=== PATIENT | female | born 1965 | race Caucasian/White ===

== ENCOUNTER 2022-01-03 14:30 | Outpatient (CLI) | payer BC, SELFPAY ==
[2022-01-03 21:51] LABS: Troponin I* < 0.01 ng/mL (0.01-0.04)
== END 2022-01-03 14:31 | disposition home or self-care (01) ==
PROVIDERS: PCP Family Medicine; Visit Provider Nurse Practitioner Family
DX: R07.89 Other chest pain (principal)
CPT/HCPCS: 36415; 84484

== ENCOUNTER 2022-01-10 11:35 | Emergency (ER) | payer BC, SELFPAY ==
[2022-01-10] VITALS (12 sets, daily range): BP systolic 127–150; BP diastolic 62–89; PULSE 56–76; RESP 11–22; TEMP 35.8–36.2; O2SAT 95–99; BMI 33.8
--- NOTE | 2022-01-10 12:31 | CRLHL7_ITS ---
For Patients: As a result of the Century Cures Act, medical imaging exams and procedure reports are released immediately into your electronic medical record. You may view this report before your referring provider. If you have questions, please contact your health care provider. INDICATION: Chest pain TECHNIQUE: Chest 2 views COMPARISON: 01/03/2022 FINDINGS: Cardiovascular and mediastinum: Cardiac silhouette is upper limits of normal. Mild tortuosity of the descending thoracic aorta. Vascular calcifications. Lungs and pleural spaces: Lungs are clear. No sign of infiltrate or mass. No sign of pleural effusion. No pneumothorax. Bones and soft tissues: Postop changes of lower cervical spine fusion. IMPRESSION: No acute findings. Dictated by Kleber Nichole MD @ 01/10/2022 1:19:29 PM (Electronically Signed)
[2022-01-10] MEDS: 0.9 % SODIUM CHLORIDE 1000 ml 1,000 ML IV (13:00)
[2022-01-10 13:02] LABS: Basophils Absolute Auto 0.04 K/uL (0.00-0.30); Basophils Percent Auto 0.8 % (0.0-3.0); Eosinophils Absolute Auto 0.12 K/uL (0.00-0.50); Eosinophils Percent Auto 2.4 % (0.0-7.0); Hematocrit 41.1 % (33.0-51.0); Hemoglobin* 13.3 gm/dL (12.0-16.0); Immature Granulocytes Abs Auto 0.01 K/uL (0.00-0.30); Lymphocytes Absolute Auto 2.09 K/uL (0.90-2.90); Lymphocytes Percent Auto 41.6 % (20-44); Mean Corpuscular HGB Conc 32 gm/dL (32-36); Mean Corpuscular Hemoglobin 30 pg (26-34); Mean Corpuscular Volume 94 fL (80-100); Monocytes Percent Auto 9.2 % (0.0-11.0); Neutrophils Percent Auto 45.8 % (42.0-72.0); Platelet Count* 216 K/uL (140-440); RDW Coefficient of Variation % 12.6 % (11.5-15.5); Red Blood Count 4.39 m/uL (4.00-5.20); White Blood Count* 5.02 K/uL (4.50-11.00)
--- NOTE | 2022-01-10 13:53 | ED.CHESTPAIN ---
HPI - Chest Pain General Date Seen: 01/10/22 Chief Complaint: Chest Pain Stated Complaint: Chest/neck/right arm pain Time Seen by Provider: 01/10/22 11:55 Source: patient Mode of arrival: ambulatory Limitations: no limitations History of Present Illness HPI narrative: Patient is a very nice 56-year-old female who struggles with the chest pain. She has had this on off for number of years. She gets is probably once every 3 months she describes. She when she is common resting, it does not occur when she is stressed her ex hurting herself,. She describes substernal chest pain or epigastric region which radiates up. Today it radiated up into her right side of her neck which is a little bit atypical it has radiated to her back into her left arm at times. Was seen by her primary care physician about 10 days ago, there troponin was negative, and her doctor told her, rather implore her that she needs to go to the emergency room when happens again. She has been told in the past that this is secondary to her fibromyalgia, but her physician said this this was unlikely. She does not have shortness of breath with this, she does feel little bit of nausea at times, but is unsure if this occurs with the episodes or she just feels nauseous. No history of fevers chills or sweats, leg swelling, hemoptysis, she has not been using any Tylenol or ibuprofen for this. Says it really does work anyway for her. She has had a stress test in the past approximately 2 years ago at the [facility] when she lived elsewhere. She does have a history of diabetes controlled with metformin, no history of hypertension, no history hyperlipidemia, father had a bypass done in his 40s. She is a lifetime nonsmoker nonuser of drugs. MD complaint: chest pain Onset (ago): month(s) Timing of current episode: episodic Prior episodes: Yes Onset: during rest Pain location: substernal and right chest Pain radiation: right arm Severity: moderate Quality: tightness and heaviness Relieving factors: nothing Exacerbating factors: nothing Associated symptoms: nausea Treatment prior to arrival: none Related Data On Oral Contraceptives: No Home Medications Medication Instructions Recorded Confirmed aspirin 81 mg tablet,delayed 81 mg PO QDAY 01/03/22 01/10/22 release cyanocobalamin (vitamin B-12) 1,000 mcg PO QDAY 01/03/22 01/10/22 1,000 mcg capsule duloxetine 30 mg capsule,delayed 30 mg PO QDAY 01/03/22 01/10/22 release duloxetine 60 mg capsule,delayed 60 mg PO QDAY 01/03/22 01/10/22 release gabapentin 300 mg capsule 300 mg PO TID 01/03/22 01/10/22 metformin 500 mg tablet 1,000 mg PO BID 01/03/22 01/10/22 simvastatin 20 mg tablet 20 mg PO QDAY 01/03/22 01/10/22 topiramate 50 mg tablet 50 mg PO BID 01/03/22 01/10/22 Previous Rx's Medication Instructions Recorded omeprazole 20 mg capsule,delayed 20 mg PO BID #180 caps 12/22/21 release Allergies Allergy/AdvReac Type Severity Reaction Status Date / Time azithromycin Allergy Verified 01/10/22 12:15 Review of Systems Status of ROS Reports: 10 or more systems reviewed and unremarkable except as noted in History and below PFSH FOR[facility]LY [facility], [facility] Medical History Depression Diabetes Fibromyalgia GERD (gastroesophageal reflux disease) Social History Smoking Status: Never smoker Do you use any of these nicotine containing products: None Second hand tobacco smoke exposure: No How often do you have a drink containing alcohol: monthly or less How many standard drinks containing alcohol do you have on a typical day: 1 or 2 How often do you have six or more drinks on one occasion: Never AUDIT-C Alcohol total score: 1 Non-prescribed substance use: denies use service: No Exam Const Vital Signs, click to edit/add: Vital Signs - 24 hr 01/10/22 12:08 01/10/22 12:20 01/10/22 12:40 Temperature 97.1 F L Pulse Rate [Right Pulse Oximeter] 67 73 70 Respiratory Rate 18 11 L 16 Blood Pressure [Right Upper Arm] 129/64 150/89 H 127/62 Pulse Oximetry 97 98 95 Oxygen Delivery Method Room Air Room Air Room Air 01/10/22 13:00 01/10/22 13:20 01/10/22 14:30 Temperature Pulse Rate [Right Pulse Oximeter] 58 L 62 60 Respiratory Rate 15 14 19 Blood Pressure [Right Upper Arm] 131/73 136/74 130/72 Pulse Oximetry 95 99 96 Oxygen Delivery Method Room Air Room Air Room Air 01/10/22 15:00 01/10/22 13:30 01/10/22 14:00 Temperature Pulse Rate [Right Pulse Oximeter] 76 56 L 56 L Respiratory Rate 12 19 Blood Pressure [Right Upper Arm] 134/67 134/74 131/71 Pulse Oximetry 99 96 96 Oxygen Delivery Method Room Air Room Air Room Air Documenting provider has reviewed patient's vital signs: yes Common normals: no apparent distress, average body habitus, oriented x3, no limitations, healthy appearing, alert and well nourished General appearance: cooperative, comfortable, well kempt and well developed Nutritional appearance: overweight Orientation/consciousness: Yes awake, Yes oriented to person, Yes oriented to place and Yes oriented to time HENND Common normals: normocephalic, head/scalp atraumatic, hearing grossly normal bilaterally, external ears normal, EAC's normal, TM's normal bilaterally, external nose normal, nasal mucous membranes and turbinates normal, moist oral mucous membranes, oropharynx normal, dentition normal and gingiva normal Head and scalp: normocephalic and atraumatic Nose: external nose normal and nasal mucous membranes and turbinates normal External ear: external ears normal External auditory canal: EAC's normal Tympanic membrane: TM's normal bilaterally Eye Common normals: PERRL, EOMs intact bilaterally, conjunctivae normal, no scleral icterus, no papilledema, normal visual valdez by confrontation and fundi normal bilaterally Conjunctiva: conjunctiva(e) normal Pupil: PERRL Direct Ophthalmoscopy: no papilledema and fundi normal bilaterally Neck & C-Spine Common normals: full ROM, no lymphadenopathy, supple, no meningeal signs, no JVD, thyroid normal and no carotid bruits Thyroid: thyroid normal Lymph Lymphatic: no lymphadenopathy noted and no lymphedema noted Resp Common normals: normal respiratory effort, no retractions, no use of accessory muscles, clear to auscultation bilaterally and percussion normal Auscultation: clear to auscultation bilaterally Percussion: percussion normal Cardio Common normals: no JVD, regular rate, regular rhythm, S1 normal heart sound, S2 normal heart sound, no gallops, no clicks, no murmurs, no rub and peripheral pulses 2+ throughout Rate: regular rate Rhythm: regular rhythm Heart sounds: S1 normal and S2 normal Peripheral pulses: pulses 2+ throughout GI Common normals: Normal to inspection, nondistended, normoactive bowel sounds present, soft to palpation, non-tender, no hepatosplenomegaly, no masses and no bruits Palpation: soft and no hepatosplenomegaly Common normals: no CVA tenderness Bladder/kidney exam: no CVA tenderness Back & Pelvis Common normals: no CVA tenderness, thoracic and lumbar spine normal to inspection, no thoracic nor lumbar tenderness, thoraco-lumbar ROM normal and straight leg raise negative bilaterally Extremity Common normals: normal to inspection, full ROM, normal capillary refill, no joint enlargement, no clubbing, cyanosis or edema, no calf tenderness and no pedal edema Neuro Common normals: oriented x3 Sensorium/orientation: awake, alert, oriented to person, oriented to place and oriented to time Meningeal signs: no meningeal signs Psych Appearance: well kempt Skin Common normals: no rashes or lesions noted, no wounds, skin turgor normal, no jaundice, no petechiae and no mottling General skin exam: no rashes or lesions noted and turgor normal Course Course Hospital Course: Point of care troponins negative, I think her heart score would be low given the fact that her EKG shows no acute findings, I do want to get a gallbladder ultrasound read to seek is this does sound like gallbladder issues. If that is the case then I will have her follow up with surgery and discuss treatment for this. Remainder of her labs otherwise look good. It also might be beneficial to get a stress echo done as an outpatient. These symptoms definitely do sound atypical, but given her family history I do not think he can be 2 safe. I do not think it is unreasonable wait and have her do this her primary care provider. Vital Signs Vital signs: Initial Vital Signs Temperature 97.1 F L 01/10/22 12:08 Temperature Source Temporal Artery Scan 01/10/22 12:08 Pulse Rate 67 01/10/22 12:08 Pulse Rhythm 01/10/22 12:08 Respiratory Rate 18 01/10/22 12:08 Blood Pressure 129/64 01/10/22 12:08 Blood Pressure Mean 85 01/10/22 12:08 Blood Pressure Position Sitting 01/10/22 12:08 Pulse Oximetry 97 01/10/22 12:08 Oxygen Delivery Method 01/10/22 12:08 Vital Signs Temperature 97.1 F L 01/10/22 12:08 Pulse Rate 67 01/10/22 12:08 Respiratory Rate 18 01/10/22 12:08 Blood Pressure 129/64 01/10/22 12:08 Pulse Oximetry 97 01/10/22 12:08 Oxygen Delivery Method 01/10/22 12:08 Temperature 97.1 F L 01/10/22 12:08 Pulse Rate 76 01/10/22 15:00 Respiratory Rate 12 01/10/22 15:00 Blood Pressure 134/67 01/10/22 15:00 Pulse Oximetry 99 01/10/22 15:00 Oxygen Delivery Method 01/10/22 15:00 MDM - Chest Pain MDM Narrative Medical decision making narrative: During the evaluation of this patient I considered multiple differential diagnosis is. The life-threatening differential diagnosis include coronary disease/MN, pulmonary embolism, pneumothorax, pneumonia, and aortic dissection. Other differential diagnosis included but were not limited to pericarditis, myocarditis, chest wall pain, GERD, esophageal rupture, rib fracture contusion, pleurisy, as well as other etiologies. Medical Records Data Attestation: I reviewed the patient's medical records. Lab Data Attestation: I reviewed the patient's lab results. Labs: Lab Results 01/10/22 01/10/22 01/10/22 Range/Units 12:45 12:45 12:45 WBC 5.02 (4.50-11.00) K/uL RBC 4.39 (4.00-5.20) m/uL Hgb 13.3 (12.0-16.0) gm/dL Hct 41.1 (33.0-51.0) % MCV 94 (80-100) fL MCH 30 (26-34) pg MCHC 32 (32-36) gm/dL RDW Coeff of Pravin 12.6 (11.5-15.5) % Plt Count 216 (140-440) K/uL Neut % (Auto) 45.8 (42.0-72.0) % Lymph % (Auto) 41.6 (20-44) % [place] % (Auto) 9.2 (0.0-11.0) % Eos % (Auto) 2.4 (0.0-7.0) % Baso % (Auto) 0.8 (0.0-3.0) % Neut # (Auto) 2.30 (1.7-7.0) K/uL Lymph # (Auto) 2.09 (0.90-2.90) K/uL [place] # (Auto) 0.50 (0.00-0.90) K/UL Eos # (Auto) 0.12 (0.00-0.50) K/uL Baso # (Auto) 0.04 (0.00-0.30) K/uL Abs Immat Gran (auto) 0.01 (0.00-0.30) K/uL INR 0.98 (0.91-1.10) APTT 27 (23-33) Seconds D-Dimer Quant (PE/DVT) 0.43 (0.00-0.50) ug/ml Sodium 142 (135-149) mmol/L Potassium 4.0 (3.6-5.1) mmol/L Chloride 110 (96-114) mmol/L Carbon Dioxide 24 (20-32) mmol/L BUN 13 (7-30) mg/dL Creatinine 0.7 (0.5-1.5) mg/dL Estimated Creat Clear 69.29 Estimated GFR 100 ml/min Glucose 115 (60-115) mg/dL Calcium 9.3 (8.4-10.6) mg/dL C-Reactive Protein < 0.5 L (0.5-1.0) mg/dL NT-Pro-B Natriuret Pep 52 (0-125) PG/mL Urine Color (Yellow) Urine Appearance (Clear) Urine pH (5.0-8.5) Ur Specific [place] (1.000-1.030) Urine Protein (Negative) Urine Glucose (UA) (Negative) Urine Ketones (Negative) Urine Blood (Negative) Urine Nitrite (Negative) Urine Bilirubin (Negative) Urine Urobilinogen (0.2-1.0) Ur Leukocyte Esterase (Negative) Urine RBC (0-2) Urine WBC (0-5) Ur Squamous Epith Cells (None-Few) Urine Bacteria (None) POC Troponin I (0.01-0.04) ng/ml 01/10/22 01/10/22 01/10/22 Range/Units 12:45 13:15 15:00 WBC (4.50-11.00) K/uL RBC (4.00-5.20) m/uL Hgb (12.0-16.0) gm/dL Hct (33.0-51.0) % MCV (80-100) fL MCH (26-34) pg MCHC (32-36) gm/dL RDW Coeff of Pravin (11.5-15.5) % Plt Count (140-440) K/uL Neut % (Auto) (42.0-72.0) % Lymph % (Auto) (20-44) % [place] % (Auto) (0.0-11.0) % Eos % (Auto) (0.0-7.0) % Baso % (Auto) (0.0-3.0) % Neut # (Auto) (1.7-7.0) K/uL Lymph # (Auto) (0.90-2.90) K/uL [place] # (Auto) (0.00-0.90) K/UL Eos # (Auto) (0.00-0.50) K/uL Baso # (Auto) (0.00-0.30) K/uL Abs Immat Gran (auto) (0.00-0.30) K/uL INR (0.91-1.10) APTT (23-33) Seconds D-Dimer Quant (PE/DVT) (0.00-0.50) ug/ml Sodium (135-149) mmol/L Potassium (3.6-5.1) mmol/L Chloride (96-114) mmol/L Carbon Dioxide (20-32) mmol/L BUN (7-30) mg/dL Creatinine (0.5-1.5) mg/dL Estimated Creat Clear Estimated GFR ml/min Glucose (60-115) mg/dL Calcium (8.4-10.6) mg/dL C-Reactive Protein (0.5-1.0) mg/dL NT-Pro-B Natriuret Pep (0-125) PG/mL Urine Color Yellow (Yellow) Urine Appearance Clear (Clear) Urine pH 7.0 (5.0-8.5) Ur Specific [place] 1.020 (1.000-1.030) Urine Protein Negative (Negative) Urine Glucose (UA) Negative (Negative) Urine Ketones Negative (Negative) Urine Blood Negative (Negative) Urine Nitrite Negative (Negative) Urine Bilirubin Negative (Negative) Urine Urobilinogen 0.2 (0.2-1.0) Ur Leukocyte Esterase Negative (Negative) Urine RBC 0-2 (0-2) Urine WBC 0-2 (0-5) Ur Squamous Epith Cells None (None-Few) Urine Bacteria None (None) POC Troponin I 0.00 L 0.00 L (0.01-0.04) ng/ml Imaging Data US - abdomen: My impression: Chest x-ray shows no acute findings by my review Radiologist's impression: Patient: PADMINI WONG Facility:?[facility] Patient ID:?[id number] Site Patient ID:?[id number] Site :?[id number] Study:?US Abdome-01/10/2022 3:40:45 PM Ordering Physician:Damion Holden Final Report: INDICATION: Abdomen and chest pain. TECHNIQUE: Ultrasound abdomen limited. Sonographic images of the right upper quadrant were obtained using ireland-scale and color Doppler images. COMPARISON: None FINDINGS: Liver: Increased echogenicity of the liver parenchyma. Bile ducts: Intrahepatic bile ducts are not dilated. The common bile duct measures upper limits of normal, 0.6-0.7 cm. Gallbladder: Layering echogenic sludge, no significant gallbladder wall thickening or pericholecystic fluid identified. Negative sonographic Leyva`s sign. Pancreas: Pancreas is poorly visualized secondary to acoustic shadowing from overlying/adjacent bowel gas. Right kidney: The right kidney measures 9.3 cm in length. Nonobstructing 0.4 cm calculus in the interpolar region. IMPRESSION: 1. Nonobstructing 0.4 cm right renal calculus. 2. Layering gallbladder sludge. No sonographic evidence of acute cholecystitis. 3. Increased echogenicity of the liver parenchyma, compatible with diffuse hepatic steatosis. 4. Common bile duct measures upper limits of normal, 0.6-0.7 cm. No definite choledocholithiasis is identified. Recommend correlation with serum alkaline phosphatase. Dictated by Sanjuana Domingo MD @ 01/10/2022 4:20:41 PM (Electronic Signature) Patient: PADMINI WONG Facility:?[facility] Patient ID:?[id number] Site Patient ID:?[id number] Site :?[id number] Study:?XRay Chest 2 VIEW-01/10/2022 1:13:06 PM Ordering Physician:Damion Holden Final Report: INDICATION: Chest pain TECHNIQUE: Chest 2 views COMPARISON: 01/03/2022 FINDINGS: Cardiovascular and mediastinum: Cardiac silhouette is upper limits of normal. Mild tortuosity of the descending thoracic aorta. Vascular calcifications. Lungs and pleural spaces: Lungs are clear. No sign of infiltrate or mass. No sign of pleural effusion. No pneumothorax. Bones and soft tissues: Postop changes of lower cervical spine fusion. IMPRESSION: No acute findings. Dictated by Kleber Nichole MD @ 01/10/2022 1:19:29 PM (Electronic Signature) ECG Data Attestation: I personally reviewed and interpreted this ECG as follows: ECG interpretation date: 01/10/22 Discharge Plan Discharge Clinical Impression: Atypical chest pain, GERD (gastroesophageal reflux disease) Patient Disposition: Home, Self-Care Condition: Stable Instructions: Biliary Colic (ED) Additional Instructions: Home rest follow-up with surgery to discuss the gallbladder and also upper endoscopy. I do believe there is something going on with her GI system also. I agree with your primary care physician the follow-up with cardiology and consider outpatient stress test is also appropriate. Can you on your current medications, low-fat diet, return as indicated Activity Level: No Restrictions Discharge Diet: Low Fat/Low Cholesterol Prescriptions: No Action duloxetine 30 mg capsule,delayed release(DR/EC) 30 mg PO QDAY duloxetine 60 mg capsule,delayed release(DR/EC) 60 mg PO QDAY cyanocobalamin (vitamin B-12) 1,000 mcg capsule 1,000 mcg PO QDAY metformin 500 mg tablet 1,000 mg PO BID topiramate 50 mg tablet 50 mg PO BID gabapentin 300 mg capsule 300 mg PO TID simvastatin 20 mg tablet 20 mg PO QDAY aspirin 81 mg tablet,delayed release (DR/EC) 81 mg PO QDAY omeprazole 20 mg capsule,delayed release(DR/EC) 20 mg PO BID Qty: 180 1RF Follow Up/Referrals: Luisa Anthony MD [Staff Physician] - Mary Anderson MD [Staff Physician] - Liliana Resendiz MD [Staff Physician] - Sudha Greene APRN, CORONER TRANSPORT TECHNICIAN [Primary Care Provider] - Stand Alone Forms: My[facility] Info Instructions
[2022-01-10 13:55] LABS: Chloride* 110 mmol/L (96-114); Sodium* 142 mmol/L (135-149)
[2022-01-10 13:57] LABS: Creatinine* 0.7 mg/dL (0.5-1.5); Est. Creatinine Clearance* 69.29; Estimated Glomerular Filt Rate 100 ml/min
[2022-01-10 13:58] LABS: Blood Urea Nitrogen* 13 mg/dL (7-30); Calcium* 9.3 mg/dL (8.4-10.6); Carbon Dioxide* 24 mmol/L (20-32); Glucose* 115 mg/dL (60-115)
[2022-01-10 13:59] LABS: Slide Review Reflex No
[2022-01-10 14:07] LABS: Appearance Urine Clear (Clear); Bilirubin Urine Negative (Negative); Blood Urine Negative (Negative); Color Urine Yellow (Yellow); Glucose Urine Negative (Negative); Ketones Urine Negative (Negative); Leukocyte Esterase Urine Negative (Negative); Nitrite Urine Negative (Negative); Protein Urine Negative (Negative); Urobilinogen Urine 0.2 (0.2-1.0)
[2022-01-10 14:08] LABS: C Reactive Protein* < 0.5 mg/dL (0.5-1.0); NT Pro B Type NatriureticPept* 52 PG/mL (0-125)
[2022-01-10 14:09] LABS: INR 0.98 (0.91-1.10); Partial Thromboplastin Time* 27 Seconds (23-33); Prothrombin Time 13.4 Seconds
[2022-01-10 14:11] LABS: D Dimer Quantitative* 0.43 ug/ml (0.00-0.50)
--- NOTE | 2022-01-10 14:44 | CRLHL7_ITS ---
For Patients: As a result of the Century Cures Act, medical imaging exams and procedure reports are released immediately into your electronic medical record. You may view this report before your referring provider. If you have questions, please contact your health care provider. INDICATION: Abdomen and chest pain. TECHNIQUE: Ultrasound abdomen limited. Sonographic images of the right upper quadrant were obtained using ireland-scale and color Doppler images. COMPARISON: None FINDINGS: Liver: Increased echogenicity of the liver parenchyma. Bile ducts: Intrahepatic bile ducts are not dilated. The common bile duct measures upper limits of normal, 0.6-0.7 cm. Gallbladder: Layering echogenic sludge, no significant gallbladder wall thickening or pericholecystic fluid identified. Negative sonographic Leyva`s sign. Pancreas: Pancreas is poorly visualized secondary to acoustic shadowing from overlying/adjacent bowel gas. Right kidney: The right kidney measures 9.3 cm in length. Nonobstructing 0.4 cm calculus in the interpolar region. IMPRESSION: 1. Nonobstructing 0.4 cm right renal calculus. 2. Layering gallbladder sludge. No sonographic evidence of acute cholecystitis. 3. Increased echogenicity of the liver parenchyma, compatible with diffuse hepatic steatosis. 4. Common bile duct measures upper limits of normal, 0.6-0.7 cm. No definite choledocholithiasis is identified. Recommend correlation with serum alkaline phosphatase. Dictated by Sanjuana Domingo MD @ 01/10/2022 4:20:41 PM (Electronically Signed)
[2022-01-10 14:45] LABS: RBC Urine 0-2 (0-2); WBC Urine 0-2 (0-5)
[2022-01-10] MEDS: KETOROLAC 30 MG/ML inj IVP (15:00)
--- OUTSIDE RECORDS SUMMARY | 2022-01-17 21:58 | XMS_ITS | Encounter Summary ---
:1965 Author Organization [facility] Address [address] [place] [address] Care Team Providers Name Role Phone Noreen Hills APRN, CNP Unavailable [phone] Noreen Hills APRN, CNP Primary Care Provider [phone] Marcelo Artis PA-C Unavailable [phone] Reason for Visit Reason Onset Date Comments Panel Management 07/25/2021 phys, pap, mammo, co dk, diab, PHQ9, HELGA, imm Encounter Details Date Type Department Care Team Description 07/25/2021 Telephone [facility] Noreen Hills Panel Miriam nash (phys, Clinic Pino Haley APRN CNP pap, mammo, colon, [address] [facility] diab, PHQ9, HELGA, imm) [facility] [address] [place] [address] [place] [address] [phone] Social History Tobacco Use Types Packs/Day Years Used Date Never Smoker Smokeless Tobacco: Never Used Alcohol Use Standard Drinks/Week Comments Yes 0 (1 standard drink = 0.6 oz pure alcoho l) Rare Alcohol Habits Answer Date Recorded How often do you have a drink containing alcohol? Monthly or less 08/08/2019 How many drinks containing alcohol do you have on a 1 or 2 08/08/2019 typical day when you are drinking? How often do you have six or more drinks on one Never 08/08/2019 occasion? Comment: Not asked Social Isolation Answer Date Recorded In a typical week, how many times do you talk on the Three t imes a week 08/08/2019 phone with family, friends, or neighbors? How often do you get together with friends or Patient refuse d 08/08/2019 relatives? How often do you attend yazidi or sikh Patient refused 08/08/2019 services? Do you belong to any clubs or organizations such as No 08/08/2019 yazidi groups, unions, fraternal or athletic groups, or school groups? How often do you attend meetings of the clubs or Patient ref used 08/08/2019 organizations you belong to? Are you now , , , , 08/08/2019 never or living with a partner? Physical Activity Answer Date Recorded On average, how many days per week do you engage in moderate to 0 days 08/08/2019 strenuous exercise (like walking fast, running, jogging, dancing, swimming, biking, or other activities that cause a light or heavy sweat)? On average, how many minutes do you engage in exercise at th is 0 min 08/08/2019 level? Stress Answer Date Recorded Do you feel stress - tense, restless, nervous, or anxious, R ather much 08/08/2019 or unable to sleep at night because your mind is troubled all the time - these days? Financial Resource Strain Answer Date Recorded How hard is it for you to pay for the very basics like Not h zurdo at all 08/08/2019 food, housing, medical care, and heating? Transportation Needs Answer Date Recorded In the past 12 months, has lack of transportation kept you f rom No 08/08/2019 medical appointments or from getting medications? In the past 12 months, has lack of transportation kept you f rom No 08/08/2019 meetings, work, or getting things needed for daily living? Education Answer Date Recorded What is the highest level of school you have completed or 12 th grade 08/08/2019 the highest degree you have received? Sex Assigned at Date Recorded Not on file documented as of this encounter Miscellaneous Notes Telephone Encounter - Christi Panda MA - 08/05/2021 3:02 PM CST Patient Quality Outreach 3rd Attempt Summary: Type of outreach: Phone, left message for patient/parent to call back. Max number of attempts reached: Yes. Will try again in 90 days if patient still on fail list. Questions for provider review: None Christi Panda CMA Chart closed. UP ARTIST Telephone Encounter - Christi Panda MA - 07/28/2021 3:42 PM CST Patient Quality Outreach 2nd Attempt Patient is due for the following: Physical - Due after 08/08/20 And all due below NEXT STEPS: Schedule a yearly physical, mammogram, colonoscopy Type of outreach: Sent letter.+ PHQ9/HELGA Questions for provider review: None Christi Panda MA Chart routed to Care Team. UP ARTIST Telephone Encounter - Christi Panda MA - 07/25/2021 3:16 PM CST Patient Quality Outreach Patient is due for the following: Diabetes - A1C, LDL (Fasting), Eye Exam, Microalbumin and Diabetic Follow-Up Visit, foot exam Colon Cancer Screening - Colonoscopy Breast Cancer Screening - Mammogram Cervical Cancer Screening - PAP Needed Depression - PHQ-9 Needed and Depression follow-up visit, HELGA Immunizations - Covid, Hepatitis B, Influenza and Zoster NEXT STEPS: Schedule a yearly physical, mammogram, colonoscopy Type of outreach: Sent [facility] appt message.+ PHQ9/HELGA Questions for provider review: None Christi Panda MA Chart routed to Care Team. UP ARTIST documented in this encounter Plan of Treatment Not on filedocumented as of this encounter Visit Diagnoses Not on filedocumented in this encounter Additional Health Concerns Assessment Noted Time PHQ-9 Depression Total Score: 7 11/10/2020 1:31 PM CDT documented as of this encounter Care Teams Auditing Specialist Relationship Specialty Start Date End Date Noreen Hills PCP - General Nurse Practitioner 01/09/19 12/12/21 SEAN Haley L D RN [address] [place], [place] [address] Noreen Hills Assigned PCP 06/16/18 SEAN Haley L D RN [address] [place], [place] [address] Marcelo Artis Assigned Musculoskeletal 08/25/20 08/20/21 MIKAYLA Nuno Provider [id number] [address] documented as of this encounter
--- OUTSIDE RECORDS SUMMARY | 2022-01-17 21:58 | XMS_ITS | Clinical Summary ---
:1965 Author Organization [facility] Address [address] [place] [address] Care Team Providers Name Role Phone Noreen Hills APRN CAR DISTRIBUTOR Unavailable Allergies Active Allergy Reactions Severity Noted Date Comments Erythromycin Rash Low 04/13/2008 As a child Medications Medication Sig Dispensed Refills Start Date End Date Status ASPIRIN PO Take 81 mg by 0 Activ e mouth daily. blood glucose 1 strip by In 100 strip 0 04/11/2014 A ctive (ACCU-CHEK JANICE) test Vitro route 2 stripIndications: Type times daily 2 diabetes, HbA1c goal < 7% (H) Additional Information Patient not taking. Reported on 01/03/2021 JAY/ARB NOT PRESCRIBED, 1 each daily JAY & ARB 0 Active INTENTIONAL,Indications: Type 2 not prescribed due to diabetes, HbA1c goal < 7% (H), not needed Hypertension goal BP (blood pressure) < 130/80 Additional Information Patient not taking. Reported on 08/21/2017 IBUPROFEN PO Take 800 mg by mouth 0 Active daily as needed for moderate pain Acetaminophen (TYLENOL PO) Take 1,000 mg by mouth 0 Active daily as needed for mild pain or fever simvastatin (ZOCOR) 20 MG Take 1 tab daily 90 tablet 3 020 Active tabletIndications: Hyperlipidemia LDL goal <100, Type 2 diabetes mellitus with complication, without long-term current use of insulin (H) fluticasone (FLONASE) 50 [place] 1-2 sprays into 16 g 11 Active MCG/ACT nasal both nostrils daily sprayIndications: Allergic rhinitis, unspecified seasonality, unspecified trigger blood glucose (NO BRAND Use to test blood 100 each 06/16/19 Active SPECIFIED) lancets sugar 2 times daily or standardIndications: Type 2 as directed. diabetes, HbA1c goal < 7% (H) blood glucose (NO BRAND Use to test blood 1 Box 11 06/16/19 Active SPECIFIED) test sugar 2 times daily or stripIndications: Type 2 as directed. diabetes, HbA1c goal < 7% (H) metFORMIN (GLUCOPHAGE) 500 MG TAKE 2 TABLETS BY 360 tablet 0 0 06/18/2020 Active tabletIndications: Type 2 MOUTH 2 TIMES DAILY diabetes mellitus with (WITH MEALS) complication, without long-term current use of insulin (H) SUMAtriptan (IMITREX) 25 MG TAKE 1 TO 2 TABLETS BY 12 tablet 8 07/13/2020 Active tabletIndications: Migraine MOUTH ONCE FOR without status migrainosus, MIGRAINE. OK TO REPEAT not intractable, unspecified X 1 AFTER 2HOURS. MAX migraine type 12TA INS Additional Information Patient not taking. Reported on 01/03/2021 zolpidem (AMBIEN) 5 MG Take 1 tab nightly 30 tablet 5 09/27/19 Active tabletIndications: Persistent insomnia topiramate (TOPAMAX) 50 MG Take 1 tablet (50 180 tablet 3 08/2020 Active tabletIndications: Migraine mg) by mouth 2 times without status migrainosus, daily Take 1 tab by not intractable, unspecified mouth 2 times daily migraine type, Morbid obesity (H) naproxen (NAPROSYN) 500 MG Take 1 tablet (500 60 tablet 3 01/2021 Active tabletIndications: mg) by mouth 2 times Polyarthralgia daily (with meals) [facility] ALLERGY RELIEF-D 10-240 MG TAKE 1 TABLET BY 90 tablet 11 Active 24 hr tabletIndications: MOUTH EVERY DAY Chronic seasonal allergic rhinitis DULoxetine (CYMBALTA) 30 MG TAKE 1 CAPSULE BY 90 capsule 1 05/2021 Active capsuleIndications: MOUTH EVERY DAY Fibromyalgia omeprazole (PRILOSEC) [address] TAKE 2 CAPSULES BY 180 capsule 0 08/08/2021 Active capsuleIndications: MOUTH EVERY DAY Gastroesophageal reflux disease without esophagitis Active Problems Patient Care Coordination Note Formatting of this note might be differe nt from the original. [email or web address] Problem Noted Date Chest pain 03/16/2020 Overview: Normal stress test 2019 Per cards e-consult, stress test isn't 1 00% negative predicted. Given intermediate risk, he though CT angio would be reasonable. Ordered.March 16, 2020 Morbid obesity 08/08/2019 Dry mouth 08/08/2019 Overview: Also dry eyes. Have not had time to inve stigate. 07/2019 Pain of left lower leg 08/08/2019 Overview: See 07/2019. Likely radicular sx. 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 No pre-cancerous cells. T reated with steroid. No current sx. Monitor with paps. Allergic rhinitis, unspecified seasonality, unspecifie d trigger 05/05/2011 Hyperlipidemia LDL goal <100 02/15/2010 Type 2 diabetes mellitus with complication, without lo ng-term current use 01/28/2010 of insulin Persistent insomnia 01/12/2010 Overview: [place]. Investigating 07/2019 why she is only allowed 20 tabs per month Migraine headache 04/13/2008 Overview: Increased topamax and sleep study ordere d 07/2019. If no improvement refer back to neuro. Dr. Martinez, neurology (Problem list name updated by automated process. Provider to review and confirm.) GERD (gastroesophageal reflux disease) 04/13/2008 Overview: 07/2019 Did not have time to address PPI use. Address next visit Family history of CT (myocardial infarction) 8 Overview: At early age, father CT at age 40 Resolved Problems Problem Noted Date Resolved Date Left foot pain 01/28/2019 05/22/2019 Right foot pain 01/28/2019 05/22/2019 Peroneal tendinitis of both lower legs 01/28/2019 1 07/23/2018 Acute pain of right shoulder 01/10/2019 08/07/2019 Chronic right shoulder pain 01/10/2019 05/22/2019 Aftercare following surgery of the musculoskeletal system 08/07/2019 Ankle pain, left 07/03/2016 08/07/2019 IFG (impaired fasting glucose) 10/03/2015 6 Low back pain 11/15/2011 08/07/2019 Overview: Diagnosis updated by automated process. Provider to review and confirm. Menorrhagia 10/18/2011 11/01/2015 Hypertension goal BP (blood pressure) < 130/80 02/15/2010 12/24/2015 Upper back pain 01/18/2010 08/07/2019 Other peripheral enthesopathies 01/14/2010 03/15/20 10 Prediabetes 01/12/2010 01/28/2010 Cervical pain 11/24/2009 07/14/2016 CARDIOVASCULAR SCREENING; LDL GOAL LESS THAN 160 07/21/2009 02/15/2010 Lateral epicondylitis 03/24/2009 07/05/2009 Overview: Problem list name updated by automated p rocess. Provider to review Obesity 04/13/2008 08/08/2019 Encounters Date Type Specialty Care Team Description 12/08/2021 Refill IM/Peds Jeana, Noreen Sudha, CALL WORKER CAR DISTRIBUTOR Medication Refill from Last 3 Months Immunizations Name Administration Dates Next Due COVID-19,PF,Pfizer (12+ Yrs) 09/24/2020, 09/03/2020 Influenza (IIV3) PF 03/09/2011, 04/08/2010, 04/13/2008 Influenza Vaccine IM > 6 months 06/12/2017, 03/23/2016, 03/12, Valent IIV4 (Alfuria,Fluzone) 05/30/2013 Pneumococcal 23 valent 10/06/2014 TD (ADULT, 7+) 06/16/2005 TDAP Vaccine (Adacel) 03/23/2016 Family History Medical History Relation Comments Lipids Brother 2 Hypertension Brother 3 Diabetes Brother 4 Kidney Disease Brother [address] early 40s, subseq uent bipass Diabetes Father Hypertension Father Lipids Father Diabetes Maternal Grandfather Hypertension Maternal Grandfather Lipids Maternal Grandfather Diabetes Maternal Grandmother Hypertension Maternal Grandmother Lipids Maternal Grandmother Arthritis Mother OA Cardiovascular Mother CT age 72 Diabetes Mother Type II Hypertension Mother Kidney Disease Mother Lipids Mother Cardiovascular Paternal Grandfather Diabetes Paternal Grandfather Hypertension Paternal Grandfather Lipids Paternal Grandfather Cardiovascular Paternal Grandmother Diabetes Paternal Grandmother Hypertension Paternal Grandmother Lipids Paternal Grandmother Lipids Sister 3 Lipids Sister 4 Hypertension Sister 5 Hypertension Sister 6 Diabetes Sister 7 Diabetes Sister 8 Relation Status Comments Brother 1 Alive Brother 2 Brother 3 Brother 4 Brother 5 Daughter 1 Alive Daughter 2 Alive Father Maternal Grandfather Maternal Grandmother Mother Alive Paternal Grandfather Paternal Grandmother Sister 1 Alive Sister 2 Alive Sister 3 Sister 4 Sister 5 Sister 6 Sister 7 Sister 8 Son Alive Social History Tobacco Use Types Packs/Day Years Used Date Never Smoker Smokeless Tobacco: Never Used Tobacco Cessation: Counseling Given: Yes Alcohol Use Standard Drinks/Week Comments Yes 0 [...] 08/08/2019 relatives? How often do you attend druze or hinduism Patient refused 08/08/2019 services? Do you belong to any clubs or organizations such as No 08/08/2019 druze groups, unions, fraternal or athletic groups, or [...] Assigned at Date Recorded Not on file Last Filed Vital Signs Vital Sign Reading Time Taken Comments Blood Pressure 130/70 11/10/2020 1:29 PM CDT Pulse 83 11/10/2020 1:29 PM CDT Temperature 36.2 ??C (97.1 ??F) 11/10/2020 1:29 PM CDT Respiratory Rate 16 11/10/2020 1:29 PM CDT Oxygen Saturation 100% 11/10/2020 1:29 PM CDT Inhaled Oxygen Concentration - - Weight 83.9 kg (185 lb) 11/10/2020 1:29 PM CDT Height 157.5 cm (5' 2) 01/12/2020 3:45 PM CDT Body Mass Index 33.84 01/12/2020 3:45 PM CDT Plan of Treatment Health Maintenance Due Date Last Done Comments CT COLONOGRAPHY 1965 FIT-DNA (Cologuard) 1965 FLEX SIG 1965 COLONOSCOPY 1973 HEPATITIS B IMMUNIZATION (1 1982 of 3 - Risk 3-dose series) ZOSTER IMMUNIZATION (1 of 2013 2) Pneumococcal Vaccine: 10/07/2015 10/06/2014 Pediatrics (0 to 5 Years) and At-Risk Patients (6 to 64 Years) (2 - PCV) A1C 07/15/2020 01/13/2020, 08/08/2019, 01/02/2019, Additional history exists DIABETIC FOOT EXAM 08/08/2020 08/08/2019, 06/25/2018, 12/22/2015, Additional history exists LIPID 08/08/2020 08/08/2019, 04/09/2018, 02/17/2017, Additional history exists MICROALBUMIN 08/08/2020 08/08/2019, 04/09/2018, 09/25/2016, Additional history exists PREVENTIVE CARE VISIT 08/08/2020 08/08/2019, 07/25/2018, 05/03/2016, Additional history exists MAMMO SCREENING 09/03/2020 09/03/2018, 09/30/2015, 04/16/2015, Additional history exists COLORECTAL CANCER SCREENING 01/11/2021 FIT 01/11/2021 01/12/2020, 01/25/2019, 01/07/2016, Additional history exists COVID-19 Vaccine (3 - 02/24/2021 09/24/2020, 09/03/2020 Booster for Pfizer series) ANNUAL REVIEW OF HM ORDERS 03/16/2021 03/16/2020 HPV TEST 05/03/2021 05/03/2016, 10/06/2014, 10/06/2014 PAP 05/03/2021 05/03/2016, 10/06/2014, 05/05/2011, Additional history exists PHQ-9 05/12/2021 11/10/2020, 03/16/2020, 08/08/2019, Additional history exists EYE EXAM 05/17/2021 05/17/2020, 02/26/2019 BMP 11/10/2021 11/10/2020, 11/06/2019, 08/08/2019, Additional history exists INFLUENZA VACCINE (#1) 2022 08/08/2019 (Declined), 06/12/2017, 03/23/2016, Additional history exists ADVANCE CARE PLANNING 07/25/2023 07/25/2018 DTAP/TDAP/TD IMMUNIZATION 03/23/2026 03/23/2016, 06/16/2005 (3 - Td or Tdap) MIGRAINE ACTION PLAN Completed 03/09/2011, 12/16/2009 HEPATITIS C SCREENING Completed 09/25/2016 DEPRESSION ACTION PLAN Completed 06/12/2017, 06/12/2017, 11/01/2015, Additional history exists HIV SCREENING Completed 04/09/2018 IPV IMMUNIZATION Aged Out No longer eligi ble based on patient 's age to complete this topic MENINGITIS IMMUNIZATION Aged Out No longe r eligible based on patient 's age to complete this topic Insurance Payer Benefit Plan / Subscriber ID Effective Dates Phone Addre ss Type Group BCBS BCBS OUT OF [id number] 2016-Present [phone] [address] [address] [place] [address] Megan Choi Medication Self 1965 [id number]) [address] ([place]) [place] [address] Care Teams Professor Of Forest Planning Relationship Specialty Start Date End Date Noreen Hills APRN CAR DISTRIBUTOR Assigned PCP 06/16/18 [address] [facility] [place] [address]
--- OUTSIDE RECORDS SUMMARY | 2022-01-17 21:58 | XMS_ITS | Encounter Summary ---
:1965 Author Organization [facility] Address [address] [place] [address] Care Team Providers Name Role Phone Noreen Hills APRN PROPOSAL MANAGER Unavailable [phone] Noreen Hills APRN PROPOSAL MANAGER Primary Care Provider [phone] Reason for Visit Reason Comments Medication Refill Encounter Details Date Type Department Care Team Description 12/08/[address] [facility] Noreen Hills, Medication Refill Pino ESTRADA PROPOSAL MANAGER [address] [facility] [address] [place] [address] [address] [place] [address] [place] [address] [phone] Social History Tobacco Use Types Packs/Day Years [...] 08/08/2019 relatives? How often do you attend zoroastrian or pentecostal Patient refused 08/08/2019 services? Do you belong to any clubs or organizations such as No 08/08/2019 zoroastrian groups, unions, fraternal or athletic groups, or [...] this encounter Miscellaneous Notes Telephone Encounter - Emmanuelle Kang RN - 12/13/2021 11:26 AM CDT Denial to pharmacy as no longer under provider care. Emmanuelle Kang RN Telephone Encounter - Lainey Wells - 12/13/2021 11:16 AM CDT I called and spoke to the pt and she goes to the clinic in [place]. Please remove the pended med.Thank you. Lainey Wells on 12/13/2021 at 11:17 AM Telephone Encounter - Airam Perez RN - 12/13/2021 11:04 AM CDT Patient due for office visit. Please call to schedule. Airam Nuno RN, BSN documented in this encounter Plan of Treatment Not on filedocumented as of this encounter Visit Diagnoses Diagnosis Gastroesophageal reflux disease without esophagitis Esophageal reflux documented in this encounter Additional Health Concerns Assessment Noted Time PHQ-9 Depression Total Score: 7 11/10/2020 1:31 PM CDT documented as of this encounter Care Teams Assistant Activities Director Relationship Specialty Start Date End Date Noreen Hills APRN PROPOSAL MANAGER PCP - General Nurse Practitioner 01/09/19 12/12/[address] [place] [address] [place] [address] Noreen Hills APRN PROPOSAL MANAGER Assigned PCP 06/16/[address] [place] [address] [place] [id number] documented as of this encounter
--- OUTSIDE RECORDS SUMMARY | 2022-01-17 21:58 | XMS_ITS | Encounter Summary ---
:1965 Author Organization [facility] Address [address] [place] [address] Care Team Providers Name Role Phone Noreen Hills APRN, CNP Unavailable [phone] Noreen Hills APRN, CNP Primary Care Provider [phone] Kalyan Galvan Unavailable Unavailable Eduardo Sharma MD Unavailable Marcelo Artis PA-C Unavailable [phone] Reason for Visit Reason Onset Date Comments Panel Management 04/04/2021 phys,pap, colon, thomas mo, PHQ9, Diab f/u, Imm Encounter Details Date Type Department Care Team Description [facility]/04[facility] Pino Haley APRN CNP (phys,pap, colon, [address] [place] [address] [facility] mammo , PHQ9, Diab f/u, [facility] [address] Imm) [address] [place] [address] [place] [address] [phone] Social History Tobacco Use Types Packs/Day Years [...] 08/08/2019 relatives? How often do you attend faith or congregational Patient refused 08/08/2019 services? Do you belong to any clubs or organizations such as No 08/08/2019 faith groups, unions, fraternal or athletic groups, or [...] Telephone Encounter - Christi Panda MA - 04/15/2021 7:52 AM CDT Patient Quality Outreach Patient Quality Outreach 3rd Attempt Summary: Type of outreach: Phone, left message for patient/parent to call back. Max number of attempts reached: Yes. Will try again in 90 days if patient still on fail list. Questions for provider review: None Christi Panda CMA Chart closed. Telephone Encounter - Christi Panda MA - 04/07/2021 10:21 AM CDT Patient Quality Outreach 2nd Attempt Summary: Type of outreach: Sent letter.+ PHQ9/HELGA Next Steps: Reach out within 90 days via Phone. Max number of attempts reached: No. Will try again in 90 days if patient still on fail list. Questions for provider review: None Christi Panda CMA Chart routed to Care Team. Telephone Encounter - Christi Panda MA - 04/04/2021 3:13 PM CDT Images from the original note were not included. Patient Quality Outreach Summary: Patient has the following on her problem list/HM: Depression / Dysthymia review Anxiety 6 Month Remission: 4-8 month window range: 12 Month Remission: 10-14 month window range: PHQ-9 SCORE 08/08/2019 03/16/2020 11/10/2020 PHQ-9 Total Score - - - PHQ-9 Total Score MyChart 9 (Mild depression) - - PHQ-9 Total Score 9 5 7 If PHQ-9 recheck is 5 or more, route to provider for next steps. Diabetes Last A1C: Lab Results Component Value Date A1C 6.1 01/13/2020 A1C 6.2 08/08/2019 Last LDL: Lab Results Component Value Date LDL 103 08/08/2019 Is the patient on a Statin? Yes Is the patient on Aspirin? Yes Medications HMG CoA Reductase Inhibitors simvastatin (ZOCOR) 20 MG tablet Salicylates ASPIRIN PO Last three blood pressure readings: BP Readings from Last 3 Encounters: 11/10/20 130/70 08/25/20 130/78 07/17/20 132/70 Tobacco Use Smoking status: Never Smoker Smokeless tobacco: Never Used Patient is due/failing the following: Diabetes - A1C, LDL (Fasting), Microalbumin and Diabetic Follow-Up Visit Colon Cancer Screening - Colonoscopy Breast Cancer Screening - Mammogram Cervical Cancer Screening - PAP Needed Depression - PHQ-9 Needed Physical - Due after 08/08/20 Immunizations - Influenza and Shingrix Type of outreach: Sent [facility] message. Questions for provider review: None Christi Panda CMA Chart routed to Care Team. documented in this encounter Plan of Treatment Not on filedocumented as of this encounter Visit Diagnoses Not on filedocumented in this encounter Additional Health Concerns Assessment Noted Time PHQ-9 Depression Total Score: 7 11/10/2020 1:31 PM CDT documented as of this encounter Care Teams Inspector Rag Sorting Relationship Specialty Start Date End Date Noreen Hills PCP - General Nurse Practitioner 01/09/19 12/12/21 SEAN Haley RACING SECRETARY AND HANDICAPPER [address] [facility] [place] [address] Noreen Hills Assigned PCP 06/16/18 SEAN Haley RACING SECRETARY AND HANDICAPPER [address] [facility] [place] [address] Kalyan Galvan Personal Advocate & 08/08/19 Liaison (PAL) Eduardo Sharma MD Assigned Sleep Provider 04/02/20 05/07/21 [address] [place], [place] [address] Marcelo Artis Assigned Musculoskeletal 08/25/20 08/20/21 MIKAYLA Nuno Provider [address] [facility] [address] [place], [place] [address] documented as of this encounter
--- OUTSIDE RECORDS SUMMARY | 2022-01-17 21:58 | XMS_ITS | Encounter Summary ---
:1965 Author Organization [place] Address [address] [place] [address] Care Team Providers Name Role Phone Noreen Hills APRN, CNP Unavailable [phone] Noreen Hills APRN, CNP Primary Care Provider [phone] Marcelo Artis PA-C Unavailable [phone] Reason for Visit Reason Comments Medication Refill Encounter Details Date Type Department Care Team Description 08/06/2021 Refill [facility] Noreen Hills Medication Refill Pino ESTRADA KRAFT DIGESTER OPERATOR [address] [place] [address] [place] [address] [phone] Social History Tobacco Use Types Packs/Day Years [...] 08/08/2019 relatives? How often do you attend pentecostal or scientology Patient refused 08/08/2019 services? Do you belong to any clubs or organizations such as No 08/08/2019 pentecostal groups, unions, fraternal or athletic groups, or [...] this encounter Miscellaneous Notes Telephone Encounter - Marisa Panda RN - 08/08/2021 2:33 PM CST Prescription approved per [facility] Refill Protocol. Marisa Panda RN TECHNICIAN MECHANIC documented in this encounter Plan of Treatment Not on filedocumented as of this encounter Visit Diagnoses Diagnosis Gastroesophageal reflux disease without esophagitis Esophageal reflux documented in this encounter Additional Health Concerns Assessment Noted Time PHQ-9 Depression Total Score: 7 11/10/2020 1:31 PM CDT documented as of this encounter Care Teams Vice President Of Talent Management Relationship Specialty Start Date End Date Noreen Hills PCP - General Nurse Practitioner 01/09/19 12/12/21 SEAN Haley KRAFT DIGESTER OPERATOR [address] [facility] [place] [address] Noreen Hills Assigned PCP 06/16/18 SEAN Haley KRAFT DIGESTER OPERATOR [address] [facility] [place] [address] Marcelo Artis Assigned Musculoskeletal 08/25/20 08/20/21 MIKAYLA Nuno Provider [address] [address] documented as of this encounter
--- OUTSIDE RECORDS SUMMARY | 2022-01-17 21:59 | XMS_ITS | Encounter Summary ---
:1965 Author Organization [place] Address [address] [place] [address] Care Team Providers Name Role Phone Noreen Hills APRN, CNP Unavailable [phone] Noreen Hills APRN, CNP Primary Care Provider [phone] Kalyan Galvan Unavailable Unavailable Eduardo Sharma MD Unavailable Marcelo Artis PA-C Unavailable [phone] Reason for Visit Reason Comments Medication Refill Encounter Details Date Type Department Care Team Description 01/06/2021 Refill [facility] Noreen Hills, Medication Refill Pino ESTRADA LICENSING OFFICER [address] [facility] [address] [place] [address] [address] [place] [address] [place] [address] [phone] Social History Tobacco Use Types Packs/Day Years [...] 08/08/2019 relatives? How often do you attend shinto or sikhism Patient refused 08/08/2019 services? Do you belong to any clubs or organizations such as No 08/08/2019 shinto groups, unions, fraternal or athletic groups, or [...] Assigned at Date Recorded Not on file COVID-19 Exposure Response Date Recorded In the last month, have you been in contact with No / Unsure 01/03/2021 11:48 AM CDT someone who was confirmed or suspected to have Coronavirus / COVID-19? documented as of this encounter Plan of Treatment Not on filedocumented as of this encounter Visit Diagnoses Diagnosis Chronic seasonal allergic rhinitis documented in this encounter Additional Health Concerns Assessment Noted Time PHQ-9 Depression Total Score: 7 11/10/2020 1:31 PM CD T documented as of this encounter Care Teams Software Test Specialist Relationship Specialty Start Date End Date Noreen Hills PCP - General Nurse Practitioner 01/09/19 12/12/21 SEAN Haley LICENSING OFFICER [address] [place] [address] Noreen Hills Assigned PCP 06/16/18 SEAN Haley LICENSING OFFICER [address] [facility] [place] [address] Kalyan Galvan Personal Advocate & 08/08/19 Liaison (PAL) Eduardo Sharma MD Assigned Sleep Provider 04/02/20 05/07/21 [address] [facility] [address] [place], [place] [id number] Marcelo Artis Assigned Musculoskeletal 08/25/20 08/20/21 MIKAYLA Nuno Provider [address] [facility] [address] [place], [place] [address] documented as of this encounter
--- OUTSIDE RECORDS SUMMARY | 2022-01-17 22:00 | XMS_ITS | Encounter Summary ---
:1965 Author Organization [place] Address [address] [place] [address] Care Team Providers Name Role Phone Noreen Hills APRN AD TRAFFICKER Unavailable [phone] Noreen Hills APRN, CNP Primary Care Provider [phone] Kalyan Galvan Unavailable Unavailable [facility] Unavailable [phone] Eduardo Sharma MD Unavailable Marcelo Artis PA-C Unavailable [phone] Rodrigo Man PA-C Unavailable [phone] Encounter Details Date Type Department Care Team Description 11/16/2020 Telephone [facility] Noreen Hills Eagan APRN AD TRAFFICKER [address] [facility] [address] [place] [address] [address] [place] [address] [place] [address] [phone] Social History Tobacco Use Types Packs/Day Years [...] 08/08/2019 relatives? How often do you attend gnosticism or restorationist Patient refused 08/08/2019 services? Do you belong to any clubs or organizations such as No 08/08/2019 gnosticism groups, [employer], [employer] or athletic groups, or school groups? How [...] been in contact with No / Unsure 11/10/2020 1:23 PM CDT someone who was confirmed or suspected to have Coronavirus / COVID-19? documented as of this encounter Miscellaneous Notes Telephone Encounter - Barbara Mcdonough V - 11/16/2020 1:31 PM CDT This telegraphic typewriter operator chief [facility] [place]. Both locations have availability end of Decemberfor virtual visit (in-person at [place] location). Called and spoke with patient. Informed patient Rx has been sent to her local pharmacy. Discussed appointment scheduling with patient who is willing to do virtual visit. Patient is rescheduled for video visit on 01/03/2021 at 12:30 pm with same provider (Dr. Painting). Patient also added to wait list for sooner appointment. Provider updated. Barbara Mcdonough Supervisor [place] [employer] Telephone Encounter - Kavin Fitzgerald PA-C - 11/16/2020 1:15 PM CDT I sent her an rx for anti-inflammatory. It takes a few days to take effect. Can we try to get her into Rheum sooner? Her current appointment is Feb. Can [facility] in [place]? Kavin Fitzgerald PA-C Telephone Encounter - Sheeba Oscar RN - 11/16/2020 12:57 PM CDT Called pt. She says she has taken everything OTC and it does not touch it. She was going to send [employer] message last night but could not find you. She took 4 Aleve without relief. She is not sleeping the pain is so bad. She can't get into Rheum until Feb 7. She would like a stronger pain med. Sheeba Oscar, RERE on 11/16/2020 at 1:00 PM Call patient. ?? Take aleve 500 mg twice daily. Does she need help scheduling rheumatology? ?? Kavin Fitzgerald PA-C documented in this encounter Plan of Treatment Not on filedocumented as of this encounter Visit Diagnoses Diagnosis Polyarthralgia - Primary Pain in joint, multiple sites documented in this encounter Additional Health Concerns Assessment Noted Time PHQ-9 Depression Total Score: 7 11/10/2020 1:31 PM CDT documented as of this encounter Care Teams Medical Claims Processor Relationship Specialty Start Date End Date Noreen Hills PCP - General Nurse Practitioner 01/09/19 12/12/21 SEAN Haley AD TRAFFICKER [address] [facility] [place] [address] Noreen Hills Assigned PCP 06/16/18 SEAN Haley AD TRAFFICKER [address] [facility] [place] [address] Kalyan Galvan Personal Advocate & 08/08/19 Liaison (PAL) Lashae Trevino Pharmacist Pharmacist 10/14/19 12/01/20 [facility] [address] [facility] [place] [id number] Eduardo Sharma MD Assigned Sleep Provider 04/02/20 05/07/21 [address] [place] [address] [place] [id number] Marcelo Artis Assigned Musculoskeletal 08/25/20 08/20/21 MIKAYLA Nuno Provider [address] [facility] [place] [address] [place], [place] [address] Rodrigo Man Assigned Surgical 08/25/2011/27 MIKAYLA Lacy Provider [address] [place] [address] [place], [place] [id number] documented as of this encounter
--- OUTSIDE RECORDS SUMMARY | 2022-01-17 22:01 | XMS_ITS | Encounter Summary ---
:1965 Author Organization [place] Address [address] [place] [address]. [place] [address] Care Team Providers Name Role Phone Noreen Hills APRN WEB APPLICATIONS DEVELOPER Unavailable [phone] Noreen Hills APRN WEB APPLICATIONS DEVELOPER Primary Care Provider [phone] Kalyan Galvan Unavailable Unavailable Lashae Trevino [facility] Unavailable [phone] Eduardo Sharma MD Unavailable Marcelo Artis PA-C Unavailable [phone] Rodrigo Man PA-C Unavailable [phone] Encounter Details Date Type Department Care Team Description 09/24/2020 Immunization [facility] - [address] [address] [place], [place] [address] [phone] Social History Tobacco Use Types Packs/Day Years [...] 08/08/2019 relatives? How often do you attend mosque or baptist Patient refused 08/08/2019 services? Do you belong to any clubs or organizations such as No 08/08/2019 mosque groups, [employer], [employer] or athletic groups, or school groups? How [...] been in contact with No / Unsure 08/25/2020 7:31 PM CDT someone who was confirmed or suspected to have Coronavirus / COVID-19? documented as of this encounter Plan of Treatment Not on filedocumented as of this encounter Visit Diagnoses Not on filedocumented in this encounter Additional Health Concerns Assessment Noted Time PHQ-9 Depression Total Score: 5 03/16/2020 7:09 AM CDT documented as of this encounter Care Teams Correctional Counselor/Case Manager Relationship Specialty Start Date End Date Noreen Hills PCP - General Nurse Practitioner 01/09/19 12/12/21 SEAN Haley WEB APPLICATIONS DEVELOPER [address] [facility] [place] [id number] Noreen Hills Assigned PCP 06/16/18 SEAN Haley WEB APPLICATIONS DEVELOPER [address] [facility] [place] [phone] Kalyan Galvan Personal Advocate & 08/08/19 Liaison (PAL) Lashae Trevino Pharmacist Pharmacist 10/14/19 12/01/20 [facility] [address] [facility] [place] [id number] Eduardo Sharma MD Assigned Sleep Provider 04/02/20 05/07/21 [address] [place] [address] [place] [address] Marcelo Artis Assigned Musculoskeletal 08/25/20 08/20/21 MIKAYLA Nuno Provider [address] [facility] [place] [address] [place] [address] Rodrigo Man Assigned Surgical 08/25/2011/27 MIKAYLA Lacy Provider [address] [place] [address] [place] [id number] documented as of this encounter
--- OUTSIDE RECORDS SUMMARY | 2022-01-17 22:01 | XMS_ITS | Encounter Summary ---
:1965 Author Organization [place] Address [address] [place] [address] Care Team Providers Name Role Phone Noreen Hills APRN, CNP Unavailable [phone] Noreen Hills APRN, CNP Primary Care Provider [phone] Kalyan Galvan Unavailable Unavailable Lashae Trevino [facility] Unavailable [phone] Eduardo Sharma MD Unavailable Marcelo Artis PA-C Unavailable [phone] Rodrigo Man PA-C Unavailable Reason for Visit Reason Onset Date Comments Refill Request 09/24/2020 zolpidem (AMBIEN) 5 MG tablet Encounter Details Date Type Department Care Team Description 09/24/2020 Refill [facility] Noreen Hills Refill Req uest (zolpidem Clinic Pino Haley APRN CNP (AMBIEN) 5 MG tablet) [address] [place] [address] [facility] [address] [place] [address] [place] [address] [phone] Social History Tobacco Use Types Packs/Day Years [...] 08/08/2019 relatives? How often do you attend sikh or worship Patient refused 08/08/2019 services? Do you belong to any clubs or organizations such as No 08/08/2019 sikh groups, unions, [employer] or athletic groups, or school groups? 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 documented in this encounter Additional Health Concerns Assessment Noted Time PHQ-9 Depression Total Score: 5 03/16/2020 7:09 AM CDT documented as of this encounter Care Teams Passenger Service Representative Relationship Specialty Start Date End Date Noreen Hills PCP - General Nurse Practitioner 01/09/19 12/12/21 SEAN Haley CUSTODY ASSISTANT [address] [facility] [place] [phone] Noreen Hills Assigned PCP 06/16/18 SEAN Haley CUSTODY ASSISTANT [address] [facility] [place] [phone] Kalyan Galvan Personal Advocate & 08/08/19 Liaison (PAL) Lashae Trevino Pharmacist Pharmacist 10/14/19 12/01/20 [facility] 1440 [facility] [place] [phone] Eduardo Sharma MD Assigned Sleep Provider 04/02/20 05/07/21 [address] [place] [address] [place] [id number] Marcelo Artis Assigned Musculoskeletal 08/25/20 08/20/21 MIKAYLA Nuno Provider [address] [facility] [place] [address] [place], [place] [address] Rodrigo Man Assigned Surgical 08/25/2011/27 MIKAYLA Lacy Provider [address] [place] [address] [place] [id number] documented as of this encounter
--- OUTSIDE RECORDS SUMMARY | 2022-01-17 22:01 | XMS_ITS | Encounter Summary ---
:1965 Author Organization [facility] Address [address] [place] [address] Care Team Providers Name Role Phone Noreen Hills APRN ASSISTANT PROJECT ENGINEER Unavailable [phone] Noreen Hills APRN ASSISTANT PROJECT ENGINEER Primary Care Provider [phone] Kalyan Galvan Unavailable Unavailable Lashae Trevino [facility] Unavailable [phone] Eduardo Sharma MD Unavailable Marcelo Artis PA-C Unavailable [phone] Rodrigo Man PA-C Unavailable [phone] Reason for Referral Consultation (Routine) - Closed Specialty Diagnoses / Procedures Referred By Contact Refer red To Contact Rheumatology Diagnoses Polyarthralgia Kavin Fitzgerald [facility] and [address] [place] [id number] [place] [address] Phone: Referral ID Status Reason Start Date Expiration Date Visits Requ ested Visits Authorized [id number] Closed 11/12/2020 11/12/2021 1 1 Reason for Visit Reason Comments Musculoskeletal Problem bilat legs and hands Encounter Details Date Type Department Care Team Description 11/10/2020 Office Visit [facility] Lizzie Fitzgerald (Primary Clinic Pino Fernandez, Dx) [address] [facility] [address] [facility] DAV[place] [address] [place] [address] [phone] Social History Tobacco Use Types Packs/Day Years [...] How often do you attend druze or mormonism Patient refused 08/08/2019 services? Do you belong [...] / COVID-19? documented as of this encounter Last Filed Vital Signs Vital Sign Reading Time Taken Comments Blood Pressure 130/70 11/10/2020 1:29 PM CDT Pulse 83 11/10/2020 1:29 PM CDT Temperature 36.2 ??C (97.1 ??F) 11/10/2020 1:29 PM CDT Respiratory Rate 16 11/10/2020 1:29 PM CDT Oxygen Saturation 100% 11/10/2020 1:29 PM CDT Inhaled Oxygen Concentration - - Weight 83.9 kg (185 lb) 11/10/2020 1:29 PM CDT Height - - Body Mass Index 33.84 01/12/2020 3:45 PM CDT documented in this encounter Progress Notes Kavin Fitzgerald PA-C - 11/10/2020 1:40 PM CDT Assessment & Plan Polyarthralgia Obtain labs given symptoms and family history of RA. Patient to begin aleve twice daily. - Comprehensive metabolic panel - CBC with platelets differential - CRP inflammation - Cyclic Citrullinated Peptide Antibody IgG - Rheumatoid factor - Erythrocyte sedimentation rate auto - Anti Nuclear Amor IgG by IFA with Reflex - Rheumatology Referral; Future Kavin Fitzgerald PA-C [facility] Guzman is a 55 year old who presents for the following health issues: HPI Musculoskeletal problem/pain Bilateral hand swelling x 6 months. Each morning wakes with swelling of the fingers. After running under warm water and ibuprofen, swelling returns. No ecchymosis or erythema. No pain. Stiffness present and is constant. Right hand dominant. Weakness bilaterally. Difficulty with grasping. S/p cervical fusion C5-7 2000 and persistent pain into right neck and shoulder. No new pain of the neck, shoulders, elbows, wrists. S/p lumbar fusion L1-S1 fusion and SI joint surgery 2004 and 2006. Persistent pain thereafter. Rightlumbar radiculopathy. Bilateral leg pain and swelling R>L x 4-6 months ago. Persistent pain. Worse as the day goes on. Keeps patient up at night. Pain relief: ibu 800 mg with no relief. No erythema. Right knee, ankle, and foot pain. No pain of the left knee, ankle and foot. No trauma or injury. No history of autoimmune disease although PMD diagnosed her with FM. History of DVT (left leg) s/p cervical fusion. Migraines consistent--topamax. SH: Work: [employer] at [employer] in [employer]. Standing all day. FH: mother and daughter with RA Review of Systems Constitutional, HEENT, cardiovascular, pulmonary, gi and gu systems are negative, except as otherwise noted. Objective BP 130/70 Pulse 83 Temp 97.1 ??F (36.2 ??C) (Tympanic) Resp 16 Wt 83.9 kg (185 lb) LMP 10/30/2011 SpO2 100% BMI 33.84 kg/m?? Body mass index is 33.84 kg/m??. Physical Exam GENERAL: alert and no distress NECK: no adenopathy RESP: lungs clear to auscultation - no rales, rhonchi or wheezes CV: regular rate and rhythm, normal S1 S2, no S3 or S4 MSK: Neck: no tenderness. Limited ROM. Full strength. Shoulder: no tenderness. Full ROM and strength. Elbow: no tenderness. Full ROM and strength. Wrist: right dorsal wrist pain. No pain on left. Full ROM and strength. Hands: diffuse edema of the fingers of both hands. Heberdens and Bouchards nodes present. Decreased strength due to pain. Full ROM. Knees: Right knee pain-worse posteriorly. Edema of the right knee. Full ROM and strength. Left knee tender. Full ROM and strength Leg: mild edema bilaterally. Mild tenderness posteriorly on right. Ankles: mild edema bilaterally. Mild tenderness throughout; limited ROM Feet: mild edema bilaterally; mild tenderness over the MTP joints. Full ROM Results for orders placed or performed in visit on 11/10/20 Comprehensive metabolic panel Status: Abnormal Result Value Ref Range Sodium 142 133 - 144 mmol/L Potassium 4.0 3.4 - 5.3 mmol/L Chloride 112 (H) 94 - 109 mmol/L Carbon Dioxide 27 20 - 32 mmol/L Anion Gap 4 3 - 14 mmol/L Glucose 96 70 - 99 mg/dL Urea Nitrogen 14 7 - 30 mg/dL Creatinine 0.74 0.52 - 1.04 mg/dL GFR Estimate >90 >60 mL/min/[1.73_m2] GFR Estimate If Black >90 >60 mL/min/[1.73_m2] Calcium 9.3 8.5 - 10.1 mg/dL Bilirubin Total 0.6 0.2 - 1.3 mg/dL Albumin 3.6 3.4 - 5.0 g/dL Protein Total 7.2 6.8 - 8.8 g/dL Alkaline Phosphatase 143 40 - 150 U/L ALT 23 0 - 50 U/L AST 16 0 - 45 U/L CBC with platelets differential Status: None Result Value Ref Range WBC 5.5 4.0 - 11.0 10e9/L RBC Count 4.19 3.8 - 5.2 10e12/L Hemoglobin 13.1 11.7 - 15.7 g/dL Hematocrit 40.7 35.0 - 47.0 % MCV 97 78 - 100 fl MCH 31.3 26.5 - 33.0 pg MCHC 32.2 31.5 - 36.5 g/dL RDW 12.8 10.0 - 15.0 % Platelet Count 239 150 - 450 10e9/L % Neutrophils 42.1 % % Lymphocytes 44.0 % % Monocytes 9.9 % % Eosinophils 3.1 % % Basophils 0.9 % Absolute Neutrophil 2.3 1.6 - 8.3 10e9/L Absolute Lymphocytes 2.4 0.8 - 5.3 10e9/L Absolute Monocytes 0.5 0.0 - 1.3 10e9/L Absolute Eosinophils 0.2 0.0 - 0.7 10e9/L Absolute Basophils 0.1 0.0 - 0.2 10e9/L Diff Method Automated Method CRP inflammation Status: None Result Value Ref Range CRP Inflammation <2.9 0.0 - 8.0 mg/L Cyclic Citrullinated Peptide Antibody IgG Status: None Result Value Ref Range Cyclic Citrullinated Peptide Antibody, IgG 2 <7 U/mL Rheumatoid factor Status: None Result Value Ref Range Rheumatoid Factor <7 <12 IU/mL Erythrocyte sedimentation rate auto Status: Abnormal Result Value Ref Range Sed Rate 40 (H) 0 - 30 mm/h Anti Nuclear Amor IgG by IFA with Reflex Status: Abnormal Result Value Ref Range FALGUNI interpretation Positive (A) NEG^Negative FALGUNI pattern 1 DENSE FINE SPECKLED FALGUNI titer 1 1:160 Kavin Fitzgerald PA-C - 11/10/2020 1:40 PM CDT Call patient. Take aleve 500 mg twice daily. Does she need help scheduling rheumatology? Kavin Fitzgerald PA-C documented in this encounter Plan of Treatment Scheduled Referrals Name Type Priority Associated Diagnoses Order S [facility] Rheumatology Referral Referral Routine Polyarthralgia Expe cted: 11/12/2020, Expires: 2021 documented as of this encounter Procedures Procedure Name Priority Date/Time Associated Diagnosis Comme nts CYCLIC CITRULLINATED Routine 11/10/2020 2:29 Polyarthralgia Re sults for this PEPTIDE ANTIBODY IGG PM CDT procedu re are in the results section. ANTI NUCLEAR AMOR IGG Routine 11/10/2020 2:29 Polyarthralgia Re sults for this BY IFA WITH REFLEX PM CDT procedure are in the results section. CBC WITH PLATELETS & Routine 11/10/2020 2:29 Polyarthralgia Re sults for this DIFFERENTIAL PM CDT procedure are i n the results section. RHEUMATOID FACTOR Routine 11/10/2020 2:29 Polyarthralgia Resul ts for this PM CDT procedure are i n the results section. ERYTHROCYTE Routine 11/10/2020 2:29 Polyarthralgia Results fo r this SEDIMENTATION RATE PM CDT procedure are in AUTO the results section. CRP INFLAMMATION Routine 11/10/2020 2:29 Polyarthralgia Result s for this PM CDT procedure are i n the results section. COMPREHENSIVE Routine 11/10/2020 2:29 Polyarthralgia Results f or this METABOLIC PANEL PM CDT procedure ar e in the results section. documented in this encounter Results (ABNORMAL) Anti Nuclear Amor IgG by IFA with Reflex (11/10/2020 2:29 PM CDT) Component Value Ref Test Analysis Performed At Patholo gist Range Method Time Signature FALGUNI interpretation Positive (A) NEG^Nega 11/11/2020 [facility] tive 2:05 PM CDT [facility] Comment: ? Reference range: <1:40 ??NEGATIVE 1:40 - 1:80 ??BORDERLINE POSITIVE >1:80 POSITIVE FALGUNI pattern 1 DENSE FINE SPECKLED 11/11/2020 2:05 PM CDT [facility] FALGUNI titer 1 1:160 11/11/2020 2:05 PM CDT [facility] Specimen Anatomical Collection Method Collection Time Receive d Time (Source) Location / / Volume Laterality Blood 11/10/2020 2:29 PM 1 3:04 CDT PM CDT Kavin Fitzgerald PA-C LAB - BLOOD ORDERABLES Performing Organization Address City/State/ZIP Code Phon e Number [facility] [address] [place], [place] [id number] [place] [address] (ABNORMAL) Erythrocyte sedimentation rate auto (11/10/2020 2:29 PM CDT) P athologist Signature Sed Rate 40 (H) 0 - 30 mm/h 11/10/2020 [facility] 3:21 PM CDT [facility] Specimen Anatomical Collection Method Collection Time Receive d Time (Source) Location / / Volume Laterality Blood 11/10/2020 2:29 PM 1 3:04 CDT PM CDT Kavin Fitzgerald PA-C LAB - BLOOD ORDERABLES Performing Organization Address City/State/ZIP Code Phon e Number [address] [address] [phone] Rheumatoid factor (11/10/2020 2:29 PM CDT) P athologist Signature Rheumatoid <7 <12 IU/mL 11/11/2020 [facility] Factor 11:52 AM CDT [facility] Specimen Anatomical Collection Method Collection Time Receive d Time (Source) Location / / Volume Laterality Blood 11/10/2020 2:29 PM 1 3:04 CDT PM CDT Kavin Fitzgerald PA-C LAB - BLOOD ORDERABLES Performing Organization Address City/State/ZIP Code Phon e Number [address] Cyclic Citrullinated Peptide Antibody IgG (11/10/2020 2:29 PM CDT) Patholo gist Method Time Signature Cyclic 2 <7 U/mL 11/11/2020 [facility] Citrullinated 2:03 PM CDT [facility] Antibody, [facility] Comment: Negative Specimen Anatomical Collection Method Collection Time Receive d Time (Source) Location / / Volume Laterality Blood 11/10/2020 2:29 PM 1 3:04 CDT PM CDT Kavin Fitzgerald PA-C LAB - BLOOD ORDERABLES Performing Organization Address City/State/ZIP Code Phon e Number [address] CRP inflammation (11/10/2020 2:29 PM CDT) Analysis Performed At Patho logist Time Signature CRP Inflammation <2.9 0.0 - 8.0 11/10/2020 [facility] F mg/L 8:40 PM CDT [facility] Specimen Anatomical Collection Method Collection Time Receive d Time (Source) Location / / Volume Laterality Blood 11/10/2020 2:29 PM 1 3:04 CDT PM CDT Kavin Fitzgerald PA-C LAB - BLOOD ORDERABLES Performing Organization Address City/State/ZIP Code Phon e Number [address] [place] [address] [facility] CBC with platelets differential (11/10/2020 2:29 PM CDT) [facility] Method Time Signature WBC 5.5 4.0 - 11/10/2020 [facility] 11.0 3:14 PM CDT CLINICS 10e9/L [place] RBC Count 4.19 3.8 - 5.2 11/10/2020 [facility] 10e12/L 3:14 PM CDT [facility] Hemoglobin 13.1 11.7 - 11/10/2020 [facility] 15.7 g/dL 3:14 PM CDT [facility] Hematocrit 40.7 35.0 - 11/10/2020 [facility] 47.0 % 3:14 PM CDT [facility] MCV 97 78 - 100 11/10/2020 [facility] fl 3:14 PM CDT [facility] MCH 31.3 26.5 - 11/10/2020 [facility] 33.0 pg 3:14 PM CDT [facility] MCHC 32.2 31.5 - 11/10/2020 [facility] 36.5 g/dL 3:14 PM CDT [facility] RDW 12.8 10.0 - 11/10/2020 [facility] 15.0 % 3:14 PM CDT [facility] Platelet Count 239 150 - 450 11/10/2020 [facility] 10e9/L 3:14 PM CDT [facility] [place] % Neutrophils 42.1 % 11/10/2020 [facility] 3:14 PM CDT [facility] % Lymphocytes 44.0 % 11/10/2020 [facility] 3:14 PM CDT [facility] [place] % Monocytes 9.9 % 11/10/2020 [facility] 3:14 PM CDT [facility] % Eosinophils 3.1 % 11/10/2020 [facility] 3:14 PM CDT [facility] [place] % Basophils 0.9 % 11/10/2020 [facility] 3:14 PM CDT [facility] Absolute 2.3 1.6 - 8.3 11/10/2020 [facility] Neutrophil 10e9/L 3:14 PM CDT [facility] [place] Absolute 2.4 0.8 - 5.3 11/10/2020 [facility] Lymphocytes 10e9/L 3:14 PM CDT [facility]ICS IPNO Absolute 0.5 0.0 - 1.3 11/10/2020 [facility] Monocytes 10e9/L 3:14 PM CDT [facility] [place] Absolute 0.2 0.0 - 0.7 11/10/2020 [facility] Eosinophils 10e9/L 3:14 PM CDT [facility] [place] Absolute 0.1 0.0 - 0.2 11/10/2020 [facility] Basophils 10e9/L 3:14 PM CDT [facility] Diff Method Automated 11/10/2020 [facility] Method 3:14 PM CDT [facility] Specimen Anatomical Collection Method Collection Time Receive d Time (Source) Location / / Volume Laterality Blood 11/10/2020 2:29 PM 3:04 CDT PM CDT Kavin Fitzgerald PA-C LAB - BLOOD ORDERABLES Performing Organization Address City/State/ZIP Code Phon e Number [facility] [address] [place] [address] [phone] (ABNORMAL) Comprehensive metabolic panel (11/10/2020 2:29 PM CDT) Analysis Performed At Patho logist Time Signature Sodium 142 133 - 144 11/10/2020 [facility] mmol/L 7:51 PM CDT [facility] Potassium 4.0 3.4 - 5.3 11/10/2020 [facility] mmol/L 7:51 PM CDT [facility] Chloride 112 (H) 94 - 109 11/10/2020 [facility] mmol/L 7:51 PM CDT [facility] Carbon Dioxide 27 20 - 32 11/10/2020 [facility] mmol/L 7:58 PM CDT [facility] Anion Gap 4 3 - 14 11/10/2020 [facility] mmol/L 7:58 PM CDT [facility] Glucose 96 70 - 99 11/10/2020 [facility] mg/dL 7:58 PM CDT [facility] Urea Nitrogen 14 7 - 30 11/10/2020 [facility] mg/dL 7:58 PM CDT [facility] Creatinine 0.74 0.52 - 11/10/2020 [facility] 1.04 mg/dL 7:58 PM CDT [facility] GFR Estimate >90 >60 11/10/2020 [facility] mL/min/{1. 7:58 PM [facility] 73_m2} [facility] Comment: Non GFR Calc Starting 05/28/2018, serum creatinine ba sed estimated GFR (eGFR) will be calculated using the Chronic Kidney Dise [employer] [facility] Epidemiology Collaboration (CKD-EPI) equation. GFR Estimate If >90 >60 mL/min/{1.73_m2} 11/10/2020 7: 58 PM [facility] Comment: GFR Calc Starting 05/28/2018, serum creatinine ba sed estimated GFR (eGFR) will be calculated using the Chronic Kidney Dise [employer] [facility] Epidemiology Collaboration (CKD-EPI) equation. Calcium 9.3 8.5 - 10.1 mg/dL 11/10/2020 7:58 PM [facility] Bilirubin Total 0.6 0.2 - 1.3 mg/dL 11/10/2020 8:01 PM [facility] Albumin 3.6 3.4 - 5.0 g/dL 11/10/2020 8:01 PM [facility] Protein Total 7.2 6.8 - 8.8 g/dL 11/10/2020 8:01 PM [facility] Alkaline Phosphatase 143 40 - 150 U/L 11/10/2020 8:01 PM [facility] ALT 23 0 - 50 U/L 11/10/2020 8:01 PM [facility] AST 16 0 - 45 U/L 11/10/2020 8:01 PM [facility] Specimen Anatomical Collection Method Collection Time Receive d Time (Source) Location / / Volume Laterality Blood 11/10/2020 2:29 PM 3:04 CDT PM CDT Kavin Fitzgerald PA-C LAB - BLOOD ORDERABLES Performing Organization Address City/State/ZIP Code Phon e Number [facility] [address] [place] [address] [facility] documented in this encounter Visit Diagnoses Diagnosis Polyarthralgia - Primary Pain in joint, multiple sites documented in this encounter Additional Health Concerns Assessment Noted Time PHQ-9 Depression Total Score: 7 11/10/2020 1:31 PM CDT documented as of this encounter Care Teams Straw Hat Brusher Relationship Specialty Start Date End Date Noreen Hills PCP - General Nurse Practitioner 01/09/19 12/12/21 SEAN Haley ASSISTANT PROJECT ENGINEER [address] [facility] [place] [address] Noreen Hills Assigned PCP 06/16/18 SEAN Haley ASSISTANT PROJECT ENGINEER [address] [facility] [place] [address] Kalyan Galvan Personal Advocate & 08/08/19 Liaison (PAL) Lashae Trevino Pharmacist Pharmacist 10/14/19 12/01/20 [facility] [address] [facility] [facility] [address] [place], [place] [phone] Eduardo Sharma MD Assigned Sleep Provider 04/02/20 05/07/21 [address] [place] [address] Marcelo Artis Assigned Musculoskeletal 08/25/20 08/20/21 MIKAYLA Nuno Provider [address] [facility] [place] [address] [place] [address] Rodrigo Man Assigned Surgical 08/25/2011/27 MIKAYLA Lacy Provider [address] [place] [address] documented as of this encounter
--- OUTSIDE RECORDS SUMMARY | 2022-01-17 22:01 | XMS_ITS | Encounter Summary ---
:1965 Author Organization [place] Address [address] [place] [address] Care Team Providers Name Role Phone Noreen Hills APRN, CNP Unavailable [phone] Noreen Hills APRN, CNP Primary Care Provider [phone] Kalyan Galvan Unavailable Unavailable Lashae Trevino [facility] Unavailable [phone] Eduardo Sharma MD Unavailable Marcelo Artis PA-C Unavailable [phone] Rodrigo Man PA-C Unavailable Reason for Visit Reason Onset Date Comments Refill Request 10/05/2020 topiramate (TOPAMAX) 100 MG tablet Encounter Details Date Type Department Care Team Description 10/05/2020 Refill [facility] Noreen Hills Refill [facility] Pino Haley APRN CNP (topiramate (TOPAMAX) [address] [facility] 100 M G tablet) [facility] [address] [place] [address] [place] [address] [phone] Social History Tobacco Use Types Packs/Day Years [...] 08/08/2019 relatives? How often do you attend adventism or evangelical Patient refused 08/08/2019 services? Do you belong to any clubs or organizations such as No 08/08/2019 adventism groups, [employer], fraCyprotex or athletic groups, or school groups? How [...] this encounter Miscellaneous Notes Telephone Encounter - Geo Whipple, RERE - 10/08/2020 3:41 PM CDT Routing refill request to provider for review/approval because: Please review, last prescribed 1 year ago. Geo Girard RN Telephone Encounter - Sara Grewal - 10/05/2020 5:48 PM CDT Patient request new rx: Topiramate 100MG tablets, please send refill. documented in this encounter Plan of Treatment Not on filedocumented as of this encounter Visit Diagnoses Diagnosis Migraine without status migrainosus, not intractable, unspecified migraine type Morbid obesity (H) Morbid obesity documented in this encounter Additional Health Concerns Assessment Noted Time PHQ-9 Depression Total Score: 5 03/16/2020 7:09 AM CDT documented as of this encounter Care Teams Merchandise Collector Relationship Specialty Start Date End Date Noreen Hills PCP - General Nurse Practitioner 01/09/19 12/12/21 SEAN Haley ASPHALT ROLLER OPERATOR [address] [facility] [place] [phone] Nroeen Hills Assigned PCP 06/16/18 SEAN Haley ASPHALT ROLLER OPERATOR [address] [facility] [place] [address] Kalyan Galvan Personal Advocate & 08/08/19 Liaison (PAL) Lashae Trevino Pharmacist Pharmacist 10/14/19 12/01/20 Kiran, [facility] [address] [facility] [place] [phone] Eduardo Sharma MD Assigned Sleep Provider 04/02/20 05/07/21 [address] [place] [address] Marcelo Artis Assigned Musculoskeletal 08/25/20 08/20/21 MIKAYLA Nuno Provider [address] [facility] [address] [place] [address] Rodrigo Man Assigned Surgical 08/25/2011/27 MIKAYLA Lacy Provider [address] [facility] [address] [place], [place] [address] documented as of this encounter
--- OUTSIDE RECORDS SUMMARY | 2022-01-17 22:01 | XMS_ITS | Encounter Summary ---
:1965 Author Organization [place] Address [address] [place] [address] Care Team Providers Name Role Phone Noreen Hills APRN CHIEF OF PEDIATRIC UROLOGY Unavailable [phone] Noreen Hills APRN, CNP Primary Care Provider [phone] Kalyan Galvan Unavailable Unavailable Lashae Trevino [facility] Unavailable [phone] Eduardo Sharma MD Unavailable Marcelo Artis PA-C Unavailable [phone] Rodrigo Man PA-C Unavailable [phone] Encounter Details Date Type Department Care Team Description 11/12/2020 Telephone [facility] Noreen Hills Eagan APRN CHIEF OF PEDIATRIC UROLOGY [address] [facility] [address] [place] [address] [address] [place] [address] [place] [address] [phone] Social History Tobacco Use Types Packs/Day Years [...] 08/08/2019 relatives? How often do you attend worship or hinduism Patient refused 08/08/2019 services? Do you belong to any clubs or organizations such as No 08/08/2019 worship groups, [employer], fraPalmap or athletic groups, or school groups? How [...] this encounter Miscellaneous Notes Telephone Encounter - Angel Faria RN - 11/12/2020 3:55 PM CDT Called the pt. Reviewed provider messaging. Provided the pt with rheum number. - Radu Faria, RN - Patient Advocate Liason (PAL) [facility] Telephone Encounter - Angel Faria RN - 11/12/2020 3:45 PM CDT ----- Message from Kavin Fitzgerald PA-C sent at 11/12/2020 3:43 PM CDT ----- Call patient. Her FALGUNI is POSITIVE. With the elevated sed rate and symptoms, I would like patient to see rheumatology. Orders placed. Kavin Fitzgerald PA-C documented in this encounter Plan of Treatment Not on filedocumented as of this encounter Visit Diagnoses Not on filedocumented in this encounter Additional Health Concerns Assessment Noted Time PHQ-9 Depression Total Score: 7 11/10/2020 1:31 PM CDT documented as of this encounter Care Teams Lean Engineer Relationship Specialty Start Date End Date Noreen Hills PCP - General Nurse Practitioner 01/09/19 12/12/21 SEAN Haley CHIEF OF PEDIATRIC UROLOGY [address] [facility] [place] [address] Noreen Hills Assigned PCP 06/16/18 SEAN Haley CHIEF OF PEDIATRIC UROLOGY [address] [facility] [place] [address] Kalyan Galvan Personal Advocate & 08/08/19 Liaison (PAL) Lashae Trevino Pharmacist Pharmacist 10/14/19 12/01/20 [facility] [address] [phone] Eduardo Sharma MD Assigned Sleep Provider 04/02/20 05/07/21 [address] [place] [address] Marcelo Artis Assigned Musculoskeletal 08/25/20 08/20/21 MIKAYLA Nuno Provider [address] [facility] [address] [place] [address] Rodrigo Man Assigned Surgical 08/25/2011/27 MIKAYLA Lacy Provider [address] [place] [address] documented as of this encounter
--- OUTSIDE RECORDS SUMMARY | 2022-01-17 22:01 | XMS_ITS | Encounter Summary ---
:1965 Author Organization [place] Address [address] [place] [address] Care Team Providers Name Role Phone Noreen Hills APRN BASS MECHANISM MAKER Unavailable [phone] Noreen Hills APRN BASS MECHANISM MAKER Primary Care Provider [phone] Kalyan Galvan Unavailable Unavailable Lashae Trevino [facility] Unavailable [phone] Eduardo Sharma MD Unavailable Marcelo Artis PA-C Unavailable [phone] Rodrgio Man PA-C Unavailable [phone] Encounter Details Date Type Department Care Team Description 11/10/2020 Travel Social History Tobacco Use Types Packs/Day Years [...] 08/08/2019 relatives? How often do you attend yarsanism or mosque Patient refused 08/08/2019 services? Do you belong to any clubs or organizations such as No 08/08/2019 yarsanism groups, unions, fraternal or athletic groups, or [...] documented as of this encounter Care Teams Dryer And Washer Mechanic Relationship Specialty Start Date End Date Noreen Hills PCP - General Nurse Practitioner 01/09/19 12/12/21 SEAN Haley BASS MECHANISM MAKER [address] [facility] [place] [address] Noreen Hills Assigned PCP 06/16/18 SEAN Haley BASS MECHANISM MAKER [address] [facility] [place] [address] Kalyan Galvan Personal Advocate & 08/08/19 Liaison (PAL) Lashae Trevino Pharmacist Pharmacist 10/14/19 12/01/20 [facility] [address] [facility] [address] [place], [place] [id number] Eduardo Sharma MD Assigned Sleep Provider 04/02/20 05/07/21 [address] [place] [id number] Marcelo Artis Assigned Musculoskeletal 08/25/20 08/20/21 MIKAYLA Nuno Provider [address] [facility] [address] [place], [place] [address] Rodrigo Man Assigned Surgical 08/25/2011/27 MIKAYLA Lacy Provider [address] [place] [address] documented as of this encounter
--- OUTSIDE RECORDS SUMMARY | 2022-01-17 22:01 | XMS_ITS | Encounter Summary ---
:1965 Author Organization [place] Address [address] [place] [address] Care Team Providers Name Role Phone Noreen Hills APRN CROWN POUNCER Unavailable [phone] Noreen Hills APRN, CNP Primary Care Provider [phone] Kalyan Galvan Unavailable Unavailable Lashae Trevino [facility] Unavailable [phone] Eduardo Sharma MD Unavailable Marcelo Artis PA-C Unavailable [phone] Rodrigo Man PA-C Unavailable [phone] Reason for Visit Reason Onset Date Comments Medication Request 10/20/2020 Encounter Details Date Type Department Care Team Description 10/20/2020 Telephone [facility] Noreen Hills ication Request Pino Haley APRN CROWN POUNCER [address] [place] [address] [facility] [address] [place] [address] [place] [id number] [phone] Social History Tobacco Use Types Packs/Day Years [...] How often do you attend faith or yarsanism Patient refused 08/08/2019 services? Do you belong [...] this encounter Miscellaneous Notes Telephone Encounter - RussellLainey - 10/20/2020 11:25 AM CDT See message to pt. Lainey Russell on 10/20/2020 at 11:25 AM Telephone Encounter - Tatiana Marshall NP - 10/20/2020 10:58 AM CDT It looks like last order for test strips/lancets did not specify any particular brand and would be filled per insurance company. I would recommend she check with her pharmacy about this. Tatiana Marshall APRN, CROWN POUNCER Telephone Encounter - Lainey Wells - 10/20/2020 9:58 AM CDT The pt was calling and she was given some samples of OneTouch Verio Test Strips and Lancets and she would like an rx sent to the [facility] in [place]. Thank you. Lainey Russell on 10/20/2020 at 10:07 AM documented in this encounter Plan of Treatment Not on filedocumented as of this encounter Visit Diagnoses Not on filedocumented in this encounter Additional Health Concerns Assessment Noted Time PHQ-9 Depression Total Score: 5 03/16/2020 7:09 AM CDT documented as of this encounter Care Teams Switch Operator Relationship Specialty Start Date End Date Noreen Hills PCP - General Nurse Practitioner 01/09/19 12/12/21 SEAN Haley CROWN POUNCER [address] [facility] [place] [address] Noreen Hills Assigned PCP 06/16/18 SEAN Haley CROWN POUNCER [address] [facility] [place] [address] Kalyan Galvan Personal Advocate & 08/08/19 Liaison (PAL) Lashae Trevino Pharmacist Pharmacist 10/14/19 12/01/20 [facility] [address] [facility] [place] [address] Eduardo Sharma MD Assigned Sleep Provider 04/02/20 05/07/21 [address] [place] [id number] Marcelo Artis Assigned Musculoskeletal 08/25/20 08/20/21 MIKAYLA Nuno Provider [address] [facility] [address] [place] [address] Rodrigo Man Assigned Surgical 08/25/2011/27 MIKAYLA Lacy Provider [address] [place] [id number] documented as of this encounter
--- OUTSIDE RECORDS SUMMARY | 2022-01-17 22:02 | XMS_ITS | Encounter Summary ---
:1965 Author Organization [place] Address [address] [place] [address]. [place] [address] Care Team Providers Name Role Phone Noreen Hills APRN HEALTHCARE NETWORK CONSULTANT Unavailable [phone] Noreen Hills APRN HEALTHCARE NETWORK CONSULTANT Primary Care Provider [phone] Kalyan Galvan Unavailable Unavailable Lashae Trevino [facility] Unavailable [phone] Eduardo Sharma MD Unavailable Marcelo Artis PA-C Unavailable [phone] Rodrigo Man PA-C Unavailable [phone] Encounter Details Date Type Department Care Team Description 09/03/2020 [facility] [address] [place], [place] [phone] Social History Tobacco Use Types Packs/Day Years [...] 08/08/2019 relatives? How often do you attend scientologist or protestant Patient refused 08/08/2019 services? Do you belong to any clubs or organizations such as No 08/08/2019 scientologist groups, unions, fraternal or athletic groups, or [...] documented as of this encounter Care Teams Android Software Engineer Relationship Specialty Start Date End Date Noreen Hills PCP - General Nurse Practitioner 01/09/19 12/12/21 SEAN Haley HEALTHCARE NETWORK CONSULTANT [address] [facility] [place] [address] Noreen Hills Assigned PCP 06/16/18 SEAN Haley HEALTHCARE NETWORK CONSULTANT [address] [facility] [place] [address] Kalyan Galvan Personal Advocate & 08/08/19 Liaison (PAL) Lashae Trevino Pharmacist Pharmacist 10/14/19 12/01/20 [facility] [address] [facility] [address] [place], [place] [phone] Eduardo Sharma MD Assigned Sleep Provider 04/02/20 05/07/21 [address] [place] [address] Marcelo Artis Assigned Musculoskeletal 08/25/20 08/20/21 MIKAYLA Nuno Provider [address] [facility] [address] [place], [place] [address] Rodrigo Man Assigned Surgical 08/25/2011/27 MIKAYLA Lacy Provider [address] [place] [id number] documented as of this encounter
--- OUTSIDE RECORDS SUMMARY | 2022-01-17 22:02 | XMS_ITS | Encounter Summary ---
:1965 Author Organization [place] Address [address] [place] [address] Care Team Providers Name Role Phone Noreen Hills APRN COGNOS LEAD Unavailable [phone] Noreen Hills APRN COGNOS LEAD Primary Care Provider [phone] Kalyan Galvan Unavailable Unavailable Lashae Trevino [facility] Unavailable [phone] Eduardo Sharma MD Unavailable Rios Monteiro MD Unavailable Reason for Visit Reason Comments Other Entered automatically based on patient selection in [facility]. Encounter Details Date Type Department Care Team Description 07/16/2020 E-Visit [facility] Tatiana Marshall NP Other (Entered Clinic [address] automatically based on [address] [place] [address] DR tenorio... [facility] [address] [place] [address] [address] [place] [address] [phone] Social History Tobacco Use Types Packs/Day Years [...] How often do you attend scientologist or taoist Patient refused 08/08/2019 services? Do you belong to any clubs or organizations such as No 08/08/2019 scientologist groups, XATAs, [employer] or athletic groups, or school groups? How [...] been in contact with No / Unsure 07/17/2020 1:32 PM CONTROL ROOM SUPERVISOR someone who was confirmed or suspected to have Coronavirus / COVID-19? documented as of this encounter Miscellaneous Notes Telephone Encounter - Lainey Wells - 07/16/2020 11:55 AM CST See message to pt. Lainey Russell on 07/16/2020 at 11:55 AM ROL ROOM SUPERVISOR Telephone Encounter - Tatiana Marshall NP - 07/16/2020 11:37 AM CST Provider E-Visit time total (minutes): -0 No reply, pt ended up going to for this problem ROL ROOM SUPERVISOR documented in this encounter Plan of Treatment Scheduled Orders Name Type Priority Associated Diagnoses Order S chedule UA reflex to Microscopic Lab Routine Urinary frequenc y Expected: 07/16/2020 and Culture (Approximate), Expires: 07/16/2021 documented as of this encounter Visit Diagnoses Diagnosis Urinary frequency - Primary documented in this encounter Additional Health Concerns Assessment Noted Time PHQ-9 Depression Total Score: 5 03/16/2020 7:09 AM CDT documented as of this encounter Care Teams Lab Aid Relationship Specialty Start Date End Date Noreen Hills PCP - General Nurse Practitioner 01/09/19 12/12/21 SEAN Haley COGNOS LEAD [address] [facility] [place] [id number] Noreen Hills Assigned PCP 06/16/18 SEAN Haley COGNOS LEAD [address] [facility] [place] [address] Kalyan Galvan Personal Advocate & 08/08/19 Liaison (PAL) Lashae Trevino Pharmacist Pharmacist 10/14/19 12/01/20 CLAUDIA Beck [address] [place] [id number] Eduardo Sharma MD Assigned Sleep Provider 04/02/20 05/07/21 [address] [place] [id number] Rios Monteiro MD Assigned Musculoskeletal 04/02/20 08/24/[id number] [place] [id number] documented as of this encounter
--- OUTSIDE RECORDS SUMMARY | 2022-01-17 22:02 | XMS_ITS | Encounter Summary ---
:1965 Author Organization [place] Address [address] [place] [address] Care Team Providers Name Role Phone Noreen Hills APRN LIQUIFIED NATURAL GAS TECHNICIAN Unavailable [phone] Noreen Hills APRN LIQUIFIED NATURAL GAS TECHNICIAN Primary Care Provider [phone] Kalyan Galvan Unavailable Unavailable Lashae Trevino [facility] Unavailable [phone] Eduardo Sharma MD Unavailable Marcelo Artis PA-C Unavailable [phone] Rodrigo Man PA-C Unavailable [phone] Encounter Details Date Type Department Care Team Description 09/04/2020 Documentation Only INTERFACED REPORT Unknown, Provider Social History Tobacco Use Types Packs/Day Years [...] 08/08/2019 relatives? How often do you attend confucianist or roman catholic Patient refused 08/08/2019 services? Do you belong to any clubs or organizations such as No 08/08/2019 confucianist groups, unions, fraternal or athletic groups, or [...] documented as of this encounter Care Teams Nursing Home Physician Relationship Specialty Start Date End Date Noreen Hills PCP - General Nurse Practitioner 01/09/19 12/12/21 SEAN Haley LIQUIFIED NATURAL GAS TECHNICIAN [address] [facility] [place] [address] Noreen Hills Assigned PCP 06/16/18 SEAN Haley LIQUIFIED NATURAL GAS TECHNICIAN [address] [facility] [place] [address] Kalyan Galvan Personal Advocate & 08/08/19 Liaison (PAL) Lashae Trevino Pharmacist Pharmacist 10/14/19 12/01/20 [facility] [address] [facility] [place] [id number] Eduardo Sharma MD Assigned Sleep Provider 04/02/20 05/07/21 [address] [place] [id number] Marcelo Artis Assigned Musculoskeletal 08/25/20 08/20/21 MIKAYLA Nuno Provider [address] [facility] [address] [place], [place] [address] Rodrigo Man Assigned Surgical 08/25/2011/27 MIKAYLA Lacy Provider [address] [place] [id number] documented as of this encounter
--- OUTSIDE RECORDS SUMMARY | 2022-01-17 22:02 | XMS_ITS | Encounter Summary ---
:1965 Author Organization [place] Address [address] [place] [address] Care Team Providers Name Role Phone Noreen Hills APRN, CNP Unavailable [phone] Noreen Hills APRN, CNP Primary Care Provider [phone] Kalyan Galvan Unavailable Unavailable Lashae Trevino [facility] Unavailable [phone] Eduardo Sharma MD Unavailable Rios Monteiro MD Unavailable Reason for Visit Reason Onset Date Comments Prior Auth - Medication 06/17/2020 Omeprazole Encounter Details Date Type Department Care Team Description 06/17/2020 Telephone [facility] Noreen Hills Prior Auth - Medication Clinic Pino Haley APRN CNP (Omeprazole) [address] [place] [address] [facility] [address] [place] [address] [place] [address] [phone] Social History Tobacco Use Types Packs/Day Years [...] 08/08/2019 relatives? How often do you attend evangelical or confucianist Patient refused 08/08/2019 services? Do you belong to any clubs or organizations such as No 08/08/2019 evangelical groups, [employer], fraternal or athletic groups, or school groups? [...] this encounter Miscellaneous Notes Telephone Encounter - Rj Salinas - 06/17/2020 3:44 PM CST Images from the original note were not included. Prior Authorization Approval Authorization Effective Date: 06/17/2020 Authorization Expiration Date: 06/17/2023 Medication: Omeprazole Approved Dose/Quantity: Reference #: Insurance Company: GAYATHRI GALLARDOArrayent - Expected CoPay: CoPay Card Available: Foundation Assistance Needed: Which Pharmacy is filling the prescription (Not needed for infusion/clinic administered): [facility] [place] [address] Pharmacy Notified: Yes Patient Notified: Yes Instructed pharmacy to notify patient when script is ready to package pick up/ship. TRAINER Telephone Encounter - Rj Salinas - 06/17/2020 3:15 PM CST Images from the original note were not included. Central Prior Authorization Team PA Initiation Medication: Omeprazole Insurance Company: GAYATHRI GALLARDOArrayent - Pharmacy Filling the Rx: [facility] [place] [address] Filling Pharmacy Filling Pharmacy Fax: Start Date: 06/17/2020 TRAINER Telephone Encounter - Charlotte Mark CMA - 06/17/2020 11:02 AM CST Prior Authorization Retail Medication Request Medication/Dose: Omeprazole DR 20mg capsules ICD code (if different than what is on RX): Previously Tried and Failed: Rationale: Insurance requires a prior authorization for more than 90 capsules in 365 days. Insurance Name: Insurance ID: Pharmacy Information (if different than what is on RX) Name: GAYATHRI TRAINER documented in this encounter Plan of Treatment Not on filedocumented as of this encounter Visit Diagnoses Not on filedocumented in this encounter Additional Health Concerns Assessment Noted Time PHQ-9 Depression Total Score: 5 03/16/2020 7:09 AM CDT documented as of this encounter Care Teams Tile Applicator Relationship Specialty Start Date End Date Noreen Hills PCP - General Nurse Practitioner 01/09/19 12/12/21 SEAN Haley ASSISTANT CHIEF ENGINEER [address] [facility] [place] [address] Noreen Hills Assigned PCP 06/16/18 SEAN Haley ASSISTANT CHIEF ENGINEER [address] [facility] [place] [address] Kalyan Galvan Personal Advocate & 08/08/19 Liaison (PAL) Lashae Trevino Pharmacist Pharmacist 10/14/19 12/01/20 [facility] [address] [facility] [place] [id number] Eduardo Sharma MD Assigned Sleep Provider 04/02/20 05/07/21 [address] [facility] [address] [place] [address] Rios Monteiro MD Assigned Musculoskeletal 04/02/20 08/24/20 [address] [facility] Provider [address] [place] [address] documented as of this encounter
--- OUTSIDE RECORDS SUMMARY | 2022-01-17 22:02 | XMS_ITS | Encounter Summary ---
:1965 Author Organization [place] Address [address] [place] [address] Care Team Providers Name Role Phone Noreen Hills APRN SALES TRAINING REPRESENTATIVE Unavailable [phone] Noreen Hills APRN SALES TRAINING REPRESENTATIVE Primary Care Provider [phone] Kalyan Galvan Unavailable Unavailable Lashae Trevino [facility] Unavailable [phone] Eduardo Sharma MD Unavailable Rios Monteiro MD Unavailable Marcelo Artis PA-C Unavailable [phone] Rodrigo Man PA-C Unavailable [phone] Reason for Visit Reason Comments Medication Refill Encounter Details Date Type Department Care Team Description 07/10/2020 Refill [employer] Noreen Hills, Medication Refill Pino CARPENTER SUPERVISOR SALES TRAINING REPRESENTATIVE [address] [facility] [address] [place] [address] [address] [place] [address] [place] [address] [phone] Social History Tobacco Use Types Packs/Day Years [...] 08/08/2019 relatives? How often do you attend christian or taoist Patient refused 08/08/2019 services? Do you belong to any clubs or organizations such as No 08/08/2019 christian groups, unions, fraternal or athletic groups, or [...] this encounter Miscellaneous Notes Telephone Encounter - Desirae Champagne RN - 07/13/2020 11:10 AM CST Routing refill request to provider for review/approval because: Patient taking 8-10 sumatriptan a month. Desirae Champagne RN on 07/13/2020 at 11:11 AM INUOUS WELD PIPE MILL SUPERVISOR Telephone Encounter - Lainey Wells - 07/12/2020 2:22 PM CST The pt called back and she says that she takes anywhere from 8-10 a month. Lainey Wells on 07/12/2020 at 2:25 PM INUOUS WELD PIPE MILL SUPERVISOR Telephone Encounter - Lainey Wells - 07/12/2020 10:59 AM CST 1st attempt l/m. Lainey Wells on 07/12/2020 at 10:59 AM INUOUS WELD PIPE MILL SUPERVISOR Telephone Encounter - Desirae Champagne RN - 07/12/2020 10:02 AM CST Please call patient and see how many doses of sumatriptan patient has used in the past month. Shouldbe using 8 doses or fewer per month. Desirae Champagne RN on 07/12/2020 at 10:07 AM INUOUS WELD PIPE MILL SUPERVISOR documented in this encounter Plan of Treatment Not on filedocumented as of this encounter Visit Diagnoses Diagnosis Migraine without status migrainosus, not intractable, unspecified migraine type documented in this encounter Additional Health Concerns Infection Onset Date Last Indicated Resolved Time Rule Out COVID-19 08/25/2020 08/25/2020 08/26/2020 3:2 3 PM CDT Assessment Noted Time PHQ-9 Depression Total Score: 5 03/16/2020 7:09 AM CDT documented as of this encounter Care Teams Automatic Coil Machine Operator Relationship Specialty Start Date End Date Noreen Hills PCP - General Nurse Practitioner 01/09/19 12/12/21 SEAN Haley SALES TRAINING REPRESENTATIVE [address] [facility] [place] [address] Noreen Hills Assigned PCP 06/16/18 SEAN Haley SALES TRAINING REPRESENTATIVE [address] [facility] [place] [address] Kalyan Galvan Personal Advocate & 08/08/19 Liaison (PAL) Lashae Trevino Pharmacist Pharmacist 10/14/19 12/01/20 [facility] [address] [facility] [address] [place], [place] [phone] Eduardo Sharma MD Assigned Sleep Provider 04/02/20 05/07/21 [address] [place] [address] Rios Monteiro MD Assigned Musculoskeletal 04/02/20 08/24/[address] Provider [address] [place] [address] Marcelo Artis Assigned Musculoskeletal 08/25/20 08/20/21 MIKAYLA Nuno Provider [address] [place] [address] Rodrigo Man Assigned Surgical 08/25/2011/27 MIKAYLA Lacy Provider [address] [place] [address] documented as of this encounter
--- OUTSIDE RECORDS SUMMARY | 2022-01-17 22:02 | XMS_ITS | Encounter Summary ---
:1965 Author Organization Reform Address [address] [place] [id number] Care Team Providers Name Role Phone Noreen Hills APRN RESEARCH GROUP DIRECTOR Unavailable [phone] Noreen Hills APRN RESEARCH GROUP DIRECTOR Primary Care Provider [phone] Kalyan Galvan Unavailable Unavailable Lashae Trevino [facility] Unavailable [phone] Eduardo Sharma MD Unavailable Marcelo Artis PA-C Unavailable [phone] Rodrigo Man PA-C Unavailable [phone] Reason for Visit Reason Comments Urgent Care Cough cough/sore throat Encounter Details Date Type Department Care Team Description 08/25/2020 Office Visit [facility] Felton nder investigation for COVID-19 (Primary Dx); Urgent Care Pino Lawrence PA-C Sore throat; [address] [facility] [address] [place] [address] [place] [phone] Social History Tobacco Use Types Packs/Day Years [...] 08/08/2019 relatives? How often do you attend latter-day or gnosticist Patient refused 08/08/2019 services? Do you belong to any clubs or organizations such as No 08/08/2019 latter-day groups, unions, [employer]oom or athletic groups, or school groups? How [...] Sign Reading Time Taken Comments Blood Pressure 130/78 08/25/2020 7:40 PM CDT Pulse 78 08/25/2020 7:40 PM CDT Temperature 36.7 ??C (98 ??F) 08/25/2020 7:40 PM CDT Respiratory Rate 20 08/25/2020 7:40 PM CDT Oxygen Saturation 98% 08/25/2020 7:40 PM CDT Inhaled Oxygen Concentration - - Weight - - Height - - Body Mass Index - - documented in this encounter Patient Instructions Patient InstructionsThompson Felton PA-C - 08/25/2020 7:30 PM CDT Images from the original note were not included. Follow up immediately with severe headache, chest pain, or shortness of breath Rest, isolate for 10 days, hydrate, follow up if worsening or new symptoms Household members to isolate until test results, if positive isolate for 2 weeks and follow up for testing if symptoms occur Patient Education Coronavirus Disease 2019 (COVID-19): Caring for Yourself or Others If you or a household member have symptoms of COVID-19, follow the guidelines below. This will help you manage symptoms and keep the virus from spreading. If you have symptoms of COVID-19 ?? Stay home and contact your care team. They will tell you what to do. ?? Don???t panic. Keep in mind that other illnesses can cause similar symptoms. ?? Stay away from work, school, and public places. ?? Limit physical contact with others in your home. Limit visitors. No kissing. Clean surfaces you touch with disinfectant. If you need to cough or sneeze, do it into a tissue. Then throw the tissue into the trash. If you don't have tissues, cough or sneeze into the bend of your elbow. Don???t share food or personal items with people in your household. This includes items like eating and drinking utensils, towels, and bedding. Wear a cloth face mask around other people. During a public health emergency, medical face masks maybe reserved for healthcare workers. You may need to make a cloth face mask of your own. You can do this using a bandana, T-shirt, or other cloth. The [facility] has instructions on how to make a face mask. Wear the mask so that it covers both your nose and mouth. If you need to go to a hospital or clinic, call ahead to let them know. Expect the care team to wearmasks, gowns, gloves, and eye protection. You may need to come to a different entrance or wait in a separate room. Follow all instructions from your care team. If you???ve been diagnosed with COVID-19 ?? Stay home and away from others, including other people in your home. (This is called self-isolation.) Don???t leave home unless you need to get medical care. Don???t go to work, school, or public places. Don???t use buses, taxis, or other public transportation. ?? Follow all instructions from your care team. ?? If you need to go to a hospital or clinic, call ahead to let them know. Expect the care team to wear masks, gowns, gloves, and eye protection. You may need to come to a different entrance or wait gretchen separate room. ?? Wear a face mask over your nose and mouth. This is to protect others from your germs. If you can???t wear a mask, your caregivers should wear one. You may need to make your own mask using a bandana,T-shirt, or other cloth. See the CDC???s instructions on how to make a face mask. ?? Have no contact with pets and other animals. ?? Don???t share food or personal items with people in your household. This includes items like eating and drinking utensils, towels, and bedding. ?? If you need to cough or sneeze, do it into a tissue. Then throw the tissue into the trash. If youdon't have tissues, cough or sneeze into the bend of your elbow. ?? Wash your hands often. Self-care at home At this time, there is no medicine approved to prevent or treat COVID-19. The FDA has approved an antiviral medicine (called remdesivir) for people being treated in the hospital. This is for people 12 years and older who weigh more than about 88 pounds (40 kgs). In certain cases, it may also be used for people younger than 12 years or who weigh less than about 88 pounds (40 kgs).. Currently, treatment is mostly aimed at helping your body while it fights the virus. ?? Getting extra rest. ?? Drink extra fluids 6 to 8 glasses of liquids each day), unless a doctor has told you not to. Ask your care team which fluids are best for you. Avoid fluids that contain caffeine or alcohol. ?? Taking pzip-mbt-ykzekwo (OTC) medicine to reduce pain and fever. Your care team will tell you which medicine to use. If you???ve been in the hospital for COVID-19, follow your care team???s instructions. They will tell you when to stop self-isolation. They may also have you change positions to help your breathing (such as lying on your belly). If a test showed that you have COVID-19, you may be asked to donate plasma after you???ve recovered.(This is called COVID-19 convalescent plasma donation.) The plasma may contain antibodies to help fight the virus in others. Experts don't know if the plasma will work well as a treatment. Research continues, and the FDA has approved it for emergency use in certain people with serious or life-threatening COVID-19. For more information, talk to your care team. Caring for a sick person ?? Follow all instructions from the care team. ?? Wash your hands often. ?? Wear protective clothing as advised. ?? Make sure the sick person wears a mask. If they can't wear a mask, don???t stay in the same room with them. If you must be in the same room, wear a face mask. Make sure the mask covers both the noseand mouth. ?? Keep track of the sick person???s symptoms. ?? Clean surfaces often with disinfectant. This includes phones, kitchen counters, fridge door handles, bathroom surfaces, and others. ?? Don???t let anyone share household items with the sick person. This includes eating and drinking tools, towels, sheets, or blankets. ?? Clean fabrics and laundry well. ?? Keep other people and pets away from the sick person. When you can stop self-isolation When you are sick with COVID-19, you should stay away from other people. This is called self-isolation. The rules for ending self-isolation depend on your health in general. If you are normally healthy: You can stop self-isolation when all 3 of these are true: ?? You???ve had no fever--and no medicine that reduces fever--for at least 24 hours. And? Your symptoms are better, such as cough or trouble breathing. And? At least 10 days have passed since your symptoms first started. Talk with your care team before you leave home. They may tell you it???s okay to leave, or they may give you different advice. You do not need to be re-tested. If you have a weak immune system, or you???ve had severe COVID-19: Follow your care team???s instructions. You may be asked to self-isolate for 10 days to 20 days after your symptoms first started. Your care team may want to re-test you for COVID-19. Note: If you???re being treated for cancer, have an immune disorder (such as HIV), or have had a transplant (organ or bone marrow), you may have a weak immune system. If you've already had COVID-19 once: If you had the virus over 3 months ago, and you???ve been exposed again, treat it like you've never had COVID-19. Stay home, limit your contact with others, call your care team, and watch for symptoms. If it???s been less than 3 months since you had the virus, you???re symptom- free, and you???ve been exposed again: You don???t need to self-isolate or be re-tested. But if you develop new symptoms thatcan???t be linked to another illness, please self-isolate and contact your care team. When you return to public settings When you are well enough to go outside your home, follow the CDC???s guidance on cloth face masks. ?? Anyone over age 2 should wear a face mask in public, especially when it's hard to socially distance. This includes public transit, public protests and marches, and crowded stores, bars, and restaurants. ?? Face masks are most likely to reduce the spread of COVID-19 when they are widely used by people who are out in the public. Certain people should not wear a face covering. These include: ?? Children under 2 years old ?? Anyone with a health, developmental, or mental health condition that can be made worse by wearinga mask ?? Anyone who is unconscious or unable to remove the face covering without help. See the CDC's guidance on who should not wear a face mask. When to call your care team Call your care team right away if a sick person has any of these: ?? Trouble breathing ?? Pain or pressure in chest If a sick person has any of these, call 911: ?? Trouble breathing that gets worse ?? Pain or pressure in chest that gets worse ?? Blue tint to lips or face ?? Fast or irregular heartbeat ?? Confusion or trouble waking ?? Fainting or loss of consciousness ?? Coughing up blood Going home from the hospital If you have COVID-19 and were recently in the hospital: ?? Follow the instructions above for self-care and isolation. ?? Follow the hospital care team???s instructions. ?? Ask questions if anything is unclear to you. Write down answers so you remember them. Date last modified: 05/03/2020 Mary last reviewed this educational content on 09/10/2019 This information has been modified by your health care provider with permission from the publisher. ?? [id number] [employer]. [address] [place] [address], [place] [id number]. All rights reserved. This information is not intended as a substitute for professional medical care. Always follow your healthcare professional's instructions. Patient Education Viral Upper Respiratory Illness (Adult) You have a viral upper respiratory illness (URI), which is another term for the common cold. This illness is contagious during the first few days. It is spread through the air by coughing and sneezing.It may also be spread by direct contact (touching the sick person and then touching your own eyes, nose, or mouth). Frequent handwashing will decrease risk of spread. Most viral illnesses go away within 7 to 10 days with rest and simple home remedies. Sometimes the illness may last for several weeks. Antibiotics will not kill a virus, and they are generally not prescribed for this condition. Home care ?? If symptoms are severe, rest at home for the first 2 to 3 days. When you resume activity, don't let yourself get too tired. ?? Don't smoke. If you need help stopping, talk with your healthcare provider. ?? Avoid being exposed to cigarette smoke (yours or others???). ?? You may use acetaminophen or ibuprofen to control pain and fever, unless another medicine was prescribed.??If you have chronic liver or kidney disease, have ever had a stomach ulcer or gastrointestinal bleeding, or are taking blood- thinning medicines, talk with your healthcare provider before usingthese medicines. Aspirin should never be given to anyone under 18 years of age who is ill with a viral infection or fever. It may cause severe liver or brain damage. ?? Your appetite may be poor, so a light diet is fine. Stay well hydrated by drinking 6 to 8 glassesof fluids per day (water, soft drinks, juices, tea, or soup). Extra fluids will help loosen secretions in the nose and lungs. ?? Gnun-xff-dfueaxf cold medicines will not shorten the length of time you???re sick, but they may be helpful for the following symptoms: cough, sore throat, and nasal and sinus congestion. If you takeprescription medicines, ask your healthcare provider or pharmacist which hhjw-jle-wnxgvnb medicines are safe to use. (Note: Don't use decongestants if you have high blood pressure.) Follow-up care Follow up with your healthcare provider, or as advised. When to seek medical advice Call your healthcare provider right away if any of these occur: ?? Cough with lots of colored sputum (mucus) ?? Severe headache; face, neck, or ear pain ?? Difficulty??swallowing??due to throat pain ?? Fever of 100.4??F (38??C) or higher, or as directed by your healthcare provider Call 911 Call 911 if any of these occur: ?? Chest pain, shortness of breath, wheezing, or difficulty breathing ?? Coughing up blood ?? Very severe pain with swallowing, especially if it goes along with a muffled voice [employer] last reviewed this educational content on 11/09/2017 ?? [id number] [employer]. All rights reserved. This information is not intended as a substitute for professional medical care. Always follow your healthcare professional's instructions. Patient Education Self-Care for Sore Throats?? Sore throats happen for many reasons, such as colds, allergies, cigarette smoke, air pollution, and infections caused by viruses or bacteria. In any case, your throat becomes red and sore. Your goal for self-care is to reduce your discomfort while giving your throat a chance to heal. Moisten and soothe your throat Tips include the following: ?? Try a sip of water first thing after waking up. ?? Keep your throat moist by drinking??6 or more glasses of clear liquids every day. ?? Run a cool-air humidifier in your room overnight. ?? Stay away from cigarette smoke.? Check the air quality index,if air pollution gives you a sore throat. On high pollution days, tryto limit outdoor time. ?? Suck on throat lozenges, cough drops, hard candy, ice chips, or frozen fruit- juice bars. Use the sugar-free versions if your diet or medical condition requires them. Gargle to ease irritation Gargling every hour or??2 can ease irritation. Try gargling with??1 of these solutions: ?? 1/4??teaspoon of salt in??1/2 cup of warm water ?? An enso-apu-mcdocrn anesthetic gargle Use medicine for more relief Rwav-nng-hfjolxs medicine can reduce sore throat symptoms. Ask your pharmacist if you have questionsabout which medicine to use. To prevent possible medicine interactions, let the pharmacist know whatmedicines you take. To decrease symptoms: ?? Ease pain with anesthetic sprays. Aspirin or an aspirin substitute also helps. Remember, never give aspirin to anyone 18 or younger. Don't take aspirin if you are already??taking blood thinners.? For sore throats caused by allergies, try antihistamines to block the allergic reaction. Unless a sore throat is caused by a bacterial infection, antibiotics won???t help you. Prevent future sore throats Prevention tips include: ?? Stop smoking or reduce contact with secondhand smoke. Smoke irritates the tender throat lining. ?? Limit contact with pets and with allergy-causing substances, such as pollen and mold. ?? Wash your hands often when you???re around someone with a sore throat or cold. This will keep viruses or bacteria from spreading. ?? Limit outdoor time when air pollution is bad. ?? Don???t strain your vocal cords. When to call your healthcare provider Contact your healthcare provider if you have: ?? Fever of 100.4??F (38.0??C) or higher, or as directed by your healthcare provider ?? White spots on the throat ?? Great Trouble swallowing ?? A skin rash ?? Recent exposure to someone else with strep bacteria ?? Severe hoarseness and swollen glands in the neck or jaw Call 911 Call 911 if any of the following occur: ?? Trouble breathing or catching your breath ?? Drooling and problems swallowing ?? Wheezing ?? Unable to talk ?? Feeling dizzy or faint ?? Feeling of doom [employer] last reviewed this educational content on 02/09/2019 ?? [id number] [employer]. All rights reserved. This information is not intended as a substitute for professional medical care. Always follow your healthcare professional's instructions. documented in this encounter Progress Notes Thompson Felton PA-C - 08/25/2020 7:30 PM CDT Images from the original note were not included. SUBJECTIVE: Megan Choi is a 55 year old female presenting with a chief complaint of stuffy nose, cough -non-productive, sore throat, headache and body aches. Onset of symptoms was 2 day(s) ago. Course of illness is same. Severity moderate Current and Associated symptoms: taste buds off Treatment measures tried include Decongestants. Predisposing factors include None. Past Medical History: Diagnosis Date ??? Aftercare following surgery of the musculoskeletal system 07/03/2016 ??? Arthritis ??? Diabetes mellitus (H) Type 2 ??? Dvt femoral (deep venous thrombosis) (H) 04/17 post surgical, stopped coumadin 01/16 ??? IFG (impaired fasting glucose) 10/03/2015 Current Outpatient Medications Medication Sig Dispense Refill ??? Acetaminophen (TYLENOL PO) Take 1,000 mg by mouth daily as needed for mild pain or fever ??? ASPIRIN PO Take 81 mg by mouth daily. ??? blood glucose (ACCU-CHEK JANICE) test strip 1 strip by In Vitro route 2 times daily 100 strip prn ??? blood glucose (NO BRAND SPECIFIED) lancets standard Use to test blood sugar 2 times daily or as directed. 100 each 11 ??? blood glucose (NO BRAND SPECIFIED) test strip Use to test blood sugar 2 times daily or as directed. 1 Box 11 ??? DULoxetine (CYMBALTA) 30 MG capsule TAKE 1 CAPSULE BY MOUTH EVERY DAY 90 capsule 0 ??? fluconazole (DIFLUCAN) 150 MG tablet Take after finishing antibiotic if yeast symptoms develop 1tablet 0 ??? fluticasone (FLONASE) 50 MCG/ACT nasal spray [place] 1-2 sprays into both nostrils daily 16 g 11 ??? IBUPROFEN PO Take 800 mg by mouth daily as needed for moderate pain ??? loratadine-pseudoePHEDrine ([employer] ALLERGY RELIEF-D) 10-240 MG 24 hr tablet Take 1 tablet by mouth daily 90 tablet 3 ??? metFORMIN (GLUCOPHAGE) 500 MG tablet TAKE 2 TABLETS BY MOUTH 2 TIMES DAILY (WITH MEALS) 360 tablet 0 ??? omeprazole (PRILOSEC) [address] capsule Take 2 capsules (40 mg) by mouth daily 180 capsule 1 ??? phenazopyridine (PYRIDIUM) 200 MG tablet Take 1 tablet (200 mg) by mouth 3 times daily as neededfor irritation 9 tablet 0 ??? psyllium (METAMUCIL) 0.52 g capsule Take 1-2 capsules by mouth daily Each capsule should be administered individually with 8 ounces of fluid. 200 capsule 3 ??? simvastatin (ZOCOR) 20 MG tablet Take 1 tab daily 90 tablet 3 ??? SUMAtriptan (IMITREX) 50 MG tablet Take 1-2 tablets (50-100 mg) by mouth at onset of headache for migraine TAKE 1 TO 2 TABLETS BY MOUTH ONCE FOR MIGRAINE. OK TO REPEAT X 1 AFTER 2HOURS. Max 100mg dose at one time. Max 200mg in a day. MAX 12TAB/25DAYS INS 18 tablet 3 ??? topiramate (TOPAMAX) 50 MG tablet Take 1 tablet (50 mg) by mouth 2 times daily Take 1 tab by mouth 2 times daily 180 tablet 3 ??? vitamin D3 (CHOLECALCIFEROL) 2000 units (50 mcg) tablet Take 1 tablet by mouth 2 times daily ??? zolpidem (AMBIEN) 5 MG tablet TAKE ONE TABLET BY MOUTH NIGHTLY AT BEDTIME NEEDED FOR SLEEP, 30 tablet 5 ? ? JAY/ARB NOT PRESCRIBED, INTENTIONAL, 1 each daily JAY & ARB not prescribed due to not needed(Patient not taking: Reported on 08/21/2017) ??? SUMAtriptan (IMITREX) 25 MG tablet TAKE 1 TO 2 TABLETS BY MOUTH ONCE FOR MIGRAINE. OK TO REPEAT X 1 AFTER 2HOURS. MAX 12TAB/25DAYS INS 12 tablet 8 Social History Tobacco Use ??? Smoking status: Never Smoker ??? Smokeless tobacco: Never Used Substance Use Topics ??? Alcohol use: Yes Frequency: Monthly or less Drinks per session: 1 or 2 Binge frequency: Never Comment: Rare ROS: 10 point ROS negative except as listed above OBJECTIVE: BP 130/78 Pulse 78 Temp 98 ??F (36.7 ??C) Resp 20 LMP 10/30/2011 SpO2 98% GENERAL APPEARANCE: healthy, alert and no distress EYES: EOMI, PERRL, conjunctiva clear HENT: ear canals and TM's normal. Nose and mouth without ulcers, erythema or lesions NECK: supple, nontender, no lymphadenopathy RESP: lungs clear to auscultation - no rales, rhonchi or wheezes CV: regular rates and rhythm, normal S1 S2, no murmur noted ABDOMEN: soft, nontender NEURO: Normal strength and tone, sensory exam grossly normal, normal speech and mentation SKIN: no suspicious lesions or rashes Results for orders placed or performed in visit on 08/25/20 Symptomatic COVID-19 Virus (Coronavirus) by PCR Status: None Specimen: Nasopharyngeal Result Value Ref Range COVID-19 Virus PCR to [facility] - Source Nasopharyngeal COVID-19 Virus PCR to [facility] - Result Test received-See reflex to IDDL test SARS CoV2 (COVID-19) Virus RT-PCR SARS-CoV-2 COVID-19 Virus (Coronavirus) by PCR Status: None Specimen: Nasopharyngeal Result Value Ref Range SARS-CoV-2 Virus Specimen Source Nasopharyngeal SARS-CoV-2 PCR Result NEGATIVE SARS-CoV-2 PCR Comment Testing was performed using the [employer]plex[employer] COVID-19 Direct Assay on the [employer] Liaison MDX instrument. Additional information about this Emergency Use Authorization (EUA) assay can be found via the Lab Guide. Streptococcus A Rapid Scr w Reflx to PCR Status: None Specimen: Throat Result Value Ref Range Strep Specimen Description Throat Streptococcus Group A Rapid Screen Negative NEG^Negative Group A Streptococcus PCR Throat Swab Status: None Specimen: Throat Result Value Ref Range Specimen Description Throat Strep Group A PCR Not Detected NDET^Not Detected ASSESSMENT: (Z68.812) Person under investigation for COVID-19 (primary encounter diagnosis) Plan: SARS-CoV-2 COVID-19 Virus (Coronavirus) by PCR (R05) Cough (J02.9) Sore throat Plan: Streptococcus A Rapid Scr w Reflx to PCR, Symptomatic COVID-19 Virus (Coronavirus) by PCR, Group A Streptococcus PCR Throat Swab Covid-19 Pt was evaluated during a global COVID-19 pandemic, which necessitated consideration that the patient might be at risk for infection with the SARS-CoV-2 virus that causes COVID-19. Applicable protocolsfor evaluation were followed during the patient's care. COVID-19 was considered as part of the patient's evaluation. The plan for testing is: a test was ordered during this visit. No severe headache, chest pain, shortness of breath No additional infectious symptoms Rest, isolate for 10 days, hydrate, test, follow up if worsening or new symptoms HH members to isolate until test results, if positive isolate for 2 weeks and follow up for testing if symptoms occur Red flags and emergent follow up discussed, and understood by patient Follow up with PCP if symptoms worsen or fail to improve Surgical mask, gown, shield, hairnet, gloves worn by provider Patient Instructions Follow up immediately with severe headache, chest pain, or shortness of breath Rest, isolate for 10 days, hydrate, follow up if worsening or new symptoms Household members to isolate until test results, if positive isolate for 2 weeks and follow up for testing if symptoms occur Patient Education Coronavirus Disease 2019 (COVID-19): Caring for Yourself or Others If you or a household member have symptoms of COVID-19, follow the guidelines below. This will help you manage symptoms and keep the virus from spreading. If you have symptoms of COVID-19 ?? Stay home and contact your care team. They will tell you what to do. ?? Don???t panic. Keep in mind that other illnesses can cause similar symptoms. ?? Stay away from work, school, and public places. ?? Limit physical contact with others in your home. Limit visitors. No kissing. Clean surfaces you touch with disinfectant. If you need to cough or sneeze, do it into a tissue. Then throw the tissue into the trash. If you don't have tissues, cough or sneeze into the bend of your elbow. Don???t share food or personal items with people in your household. This includes items like eating and drinking utensils, towels, and bedding. Wear a cloth face mask around other people. During a public health emergency, medical face masks maybe reserved for healthcare workers. You may need to make a cloth face mask of your own. You can do this using a bandana, T-shirt, or other cloth. The [facility] has instructions on how to make a face mask. Wear the mask so that it covers both your nose and mouth. If you need to go to a hospital or clinic, call ahead to let them know. Expect the care team to wearmasks, gowns, gloves, and eye protection. You may need to come to a different entrance or wait in a separate room. Follow all instructions from your care team. If you???ve been diagnosed with COVID-19 ?? Stay home and away from others, including other people in your home. (This is called self-isolation.) Don???t leave home unless you need to get medical care. Don???t go to work, school, or public places. Don???t use buses, taxis, or other public transportation. ?? Follow all instructions from your care team. ?? If you need to go to a hospital or clinic, call ahead to let them know. Expect the care team to wear masks, gowns, gloves, and eye protection. You may need to come to a different entrance or wait gretchen separate room. ?? Wear a face mask over your nose and mouth. This is to protect others from your germs. If you can???t wear a mask, your caregivers should wear one. You may need to make your own mask using a bandana,T-shirt, or other cloth. See the CDC???s instructions on how to make a face mask. ?? Have no contact with pets and other animals. ?? Don???t share food or personal items with people in your household. This includes items like eating and drinking utensils, towels, and bedding. ?? If you need to cough or sneeze, do it into a tissue. Then throw the tissue into the trash. If youdon't have tissues, cough or sneeze into the bend of your elbow. ?? Wash your hands often. Self-care at home At this time, there is no medicine approved to prevent or treat COVID-19. The FDA has approved an antiviral medicine (called remdesivir) for people being treated in the hospital. This is for people 12 years and older who weigh more than about 88 pounds (40 kgs). In certain cases, it may also be used for people younger than 12 years or who weigh less than about 88 pounds (40 kgs).. Currently, treatment is mostly aimed at helping your body while it fights the virus. ?? Getting extra rest. ?? Drink extra fluids 6 to 8 glasses of liquids each day), unless a doctor has told you not to. Ask your care team which fluids are best for you. Avoid fluids that contain caffeine or alcohol. ?? Taking pkkj-gnw-cpxkdnc (OTC) medicine to reduce pain and fever. Your care team will tell you which medicine to use. If you???ve been in the hospital for COVID-19, follow your care team???s instructions. They will tell you when to stop self-isolation. They may also have you change positions to help your breathing (such as lying on your belly). If a test showed that you have COVID-19, you may be asked to donate plasma after you???ve recovered.(This is called COVID-19 convalescent plasma donation.) The plasma may contain antibodies to help fight the virus in others. Experts don't know if the plasma will work well as a treatment. Research continues, and the FDA has approved it for emergency use in certain people with serious or life-threatening COVID-19. For more information, talk to your care team. Caring for a sick person ?? Follow all instructions from the care team. ?? Wash your hands often. ?? Wear protective clothing as advised. ?? Make sure the sick person wears a mask. If they can't wear a mask, don???t stay in the same room with them. If you must be in the same room, wear a face mask. Make sure the mask covers both the noseand mouth. ?? Keep track of the sick person???s symptoms. ?? Clean surfaces often with disinfectant. This includes phones, kitchen counters, fridge door handles, bathroom surfaces, and others. ?? Don???t let anyone share household items with the sick person. This includes eating and drinking tools, towels, sheets, or blankets. ?? Clean fabrics and laundry well. ?? Keep other people and pets away from the sick person. When you can stop self-isolation When you are sick with COVID-19, you should stay away from other people. This is called self-isolation. The rules for ending self-isolation depend on your health in general. If you are normally healthy: You can stop self-isolation when all 3 of these are true: ?? You???ve had no fever--and no medicine that reduces fever--for at least 24 hours. And? Your symptoms are better, such as cough or trouble breathing. And? At least 10 days have passed since your symptoms first started. Talk with your care team before you leave home. They may tell you it???s okay to leave, or they may give you different advice. You do not need to be re-tested. If you have a weak immune system, or you???ve had severe COVID-19: Follow your care team???s instructions. You may be asked to self-isolate for 10 days to 20 days after your symptoms first started. Your care team may want to re-test you for COVID-19. Note: If you???re being treated for cancer, have an immune disorder (such as HIV), or have had a transplant (organ or bone marrow), you may have a weak immune system. If you've already had COVID-19 once: If you had the virus over 3 months ago, and you???ve been exposed again, treat it like you've never had COVID-19. Stay home, limit your contact with others, call your care team, and watch for symptoms. If it???s been less than 3 months since you had the virus, you???re symptom- free, and you???ve been exposed again: You don???t need to self-isolate or be re-tested. But if you develop new symptoms thatcan???t be linked to another illness, please self-isolate and contact your care team. When you return to public settings When you are well enough to go outside your home, follow the CDC???s guidance on cloth face masks. ?? Anyone over age 2 should wear a face mask in public, especially when it's hard to socially distance. This includes public transit, public protests and marches, and crowded stores, bars, and restaurants. ?? Face masks are most likely to reduce the spread of COVID-19 when they are widely used by people who are out in the public. Certain people should not wear a face covering. These include: ?? Children under 2 years old ?? Anyone with a health, developmental, or mental health condition that can be made worse by wearinga mask ?? Anyone who is unconscious or unable to remove the face covering without help. See the CDC's guidance on who should not wear a face mask. When to call your care team Call your care team right away if a sick person has any of these: ?? Trouble breathing ?? Pain or pressure in chest If a sick person has any of these, call 911: ?? Trouble breathing that gets worse ?? Pain or pressure in chest that gets worse ?? Blue tint to lips or face ?? Fast or irregular heartbeat ?? Confusion or trouble waking ?? Fainting or loss of consciousness ?? Coughing up blood Going home from the hospital If you have COVID-19 and were recently in the hospital: ?? Follow the instructions above for self-care and isolation. ?? Follow the hospital care team???s instructions. ?? Ask questions if anything is unclear to you. Write down answers so you remember them. Date last modified: 05/03/2020 Mary last reviewed this educational content on 09/10/2019 This information has been modified by your health care provider with permission from the publisher. ?? [id number] [employer]. [address] [place], [place] [address] [address]. All rights reserved. This information is not intended as a substitute for professional medical care. Always follow your healthcare professional's instructions. Patient Education Viral Upper Respiratory Illness (Adult) You have a viral upper respiratory illness (URI), which is another term for the common cold. This illness is contagious during the first few days. It is spread through the air by coughing and sneezing.It may also be spread by direct contact (touching the sick person and then touching your own eyes, nose, or mouth). Frequent handwashing will decrease risk of spread. Most viral illnesses go away within 7 to 10 days with rest and simple home remedies. Sometimes the illness may last for several weeks. Antibiotics will not kill a virus, and they are generally not prescribed for this condition. Home care ?? If symptoms are severe, rest at home for the first 2 to 3 days. When you resume activity, don't let yourself get too tired. ?? Don't smoke. If you need help stopping, talk with your healthcare provider. ?? Avoid being exposed to cigarette smoke (yours or others???). ?? You may use acetaminophen or ibuprofen to control pain and fever, unless another medicine was prescribed.??If you have chronic liver or kidney disease, have ever had a stomach ulcer or gastrointestinal bleeding, or are taking blood- thinning medicines, talk with your healthcare provider before usingthese medicines. Aspirin should never be given to anyone under 18 years of age who is ill with a viral infection or fever. It may cause severe liver or brain damage. ?? Your appetite may be poor, so a light diet is fine. Stay well hydrated by drinking 6 to 8 glassesof fluids per day (water, soft drinks, juices, tea, or soup). Extra fluids will help loosen secretions in the nose and lungs. ?? Hvjw-yqv-myticgl cold medicines will not shorten the length of time you???re sick, but they may be helpful for the following symptoms: cough, sore throat, and nasal and sinus congestion. If you takeprescription medicines, ask your healthcare provider or pharmacist which zubw-mzp-qtilenk medicines are safe to use. (Note: Don't use decongestants if you have high blood pressure.) Follow-up care Follow up with your healthcare provider, or as advised. When to seek medical advice Call your healthcare provider right away if any of these occur: ?? Cough with lots of colored sputum (mucus) ?? Severe headache; face, neck, or ear pain ?? Difficulty??swallowing??due to throat pain ?? Fever of 100.4??F (38??C) or higher, or as directed by your healthcare provider Call 911 Call 911 if any of these occur: ?? Chest pain, shortness of breath, wheezing, or difficulty breathing ?? Coughing up blood ?? Very severe pain with swallowing, especially if it goes along with a muffled voice [employer] last reviewed this educational content on 11/09/2017 ?? [id number] [employer]. All rights reserved. This information is not intended as a substitute for professional medical care. Always follow your healthcare professional's instructions. Patient Education Self-Care for Sore Throats?? Sore throats happen for many reasons, such as colds, allergies, cigarette smoke, air pollution, and infections caused by viruses or bacteria. In any case, your throat becomes red and sore. Your goal for self-care is to reduce your discomfort while giving your throat a chance to heal. Moisten and soothe your throat Tips include the following: ?? Try a sip of water first thing after waking up. ?? Keep your throat moist by drinking??6 or more glasses of clear liquids every day. ?? Run a cool-air humidifier in your room overnight. ?? Stay away from cigarette smoke.? Check the air quality index,if air pollution gives you a sore throat. On high pollution days, tryto limit outdoor time. ?? Suck on throat lozenges, cough drops, hard candy, ice chips, or frozen fruit- juice bars. Use the sugar-free versions if your diet or medical condition requires them. Gargle to ease irritation Gargling every hour or??2 can ease irritation. Try gargling with??1 of these solutions: ?? 1/4??teaspoon of salt in??1/2 cup of warm water ?? An rkwv-vcn-dgahpry anesthetic gargle Use medicine for more relief Fibh-uym-fxcetpl medicine can reduce sore throat symptoms. Ask your pharmacist if you have questionsabout which medicine to use. To prevent possible medicine interactions, let the pharmacist know whatmedicines you take. To decrease symptoms: ?? Ease pain with anesthetic sprays. Aspirin or an aspirin substitute also helps. Remember, never give aspirin to anyone 18 or younger. Don't take aspirin if you are already??taking blood thinners.? For sore throats caused by allergies, try antihistamines to block the allergic reaction. Unless a sore throat is caused by a bacterial infection, antibiotics won???t help you. Prevent future sore throats Prevention tips include: ?? Stop smoking or reduce contact with secondhand smoke. Smoke irritates the tender throat lining. ?? Limit contact with pets and with allergy-causing substances, such as pollen and mold. ?? Wash your hands often when you???re around someone with a sore throat or cold. This will keep viruses or bacteria from spreading. ?? Limit outdoor time when air pollution is bad. ?? Don???t strain your vocal cords. When to call your healthcare provider Contact your healthcare provider if you have: ?? Fever of 100.4??F (38.0??C) or higher, or as directed by your healthcare provider ?? White spots on the throat ?? Great Trouble swallowing ?? A skin rash ?? Recent exposure to someone else with strep bacteria ?? Severe hoarseness and swollen glands in the neck or jaw Call 911 Call 911 if any of the following occur: ?? Trouble breathing or catching your breath ?? Drooling and problems swallowing ?? Wheezing ?? Unable to talk ?? Feeling dizzy or faint ?? Feeling of doom [employer] last reviewed this educational content on 02/09/2019 ?? [id number] [employer]. All rights reserved. This information is not intended as a substitute for professional medical care. Always follow your healthcare professional's instructions. documented in this encounter Plan of Treatment Not on filedocumented as of this encounter Procedures Procedure Name Priority Date/Time Associated Diagnosis Comme nts SARS-COV-2 (COVID-19) Routine 08/25/2020 7:31 Person under Res ults for this VIRUS RT-PCR PM CDT investigation for procedure are in COVID-19 the results section. COVID-19 VIRUS Routine 08/25/2020 7:31 Sore throat Results fo r this (CORONAVIRUS) BY PCR PM CDT procedu re are in the results section. STREPTOCOCCUS A RAPID Routine 08/25/2020 7:31 Sore throat Res ults for this SCREEN W REFELX TO PM CDT procedure are in PCR the results section. GROUP A STREPTOCOCCUS Routine 08/25/2020 7:31 Sore throat Res ults for this PCR THROAT SWAB PM CDT procedure ar e in the results section. documented in this encounter Results SARS-CoV-2 COVID-19 Virus (Coronavirus) by PCR (08/25/2020 7:31 PM CDT) [facility] Method Time Signature SARS-CoV-2 Nasopharyngeal 08/26/2020 INFECTIOUS Virus 3:23 PM CDT DISEASES Specimen DIAGNOSTIC Source LABORATORY, [facility] SARS-CoV-2 NEGATIVE 08/26/2020 INFECTIOUS PCR Result 3:23 PM CDT DISEASES DIAGNOSTIC LABORATORY, [facility] Comment: SARS-CoV2 (COVID-19) RNA not de tected, presumed negative. SARS-CoV-2 PCR Testing was performed using the [employer] COVID-19 Direct Assay on the [employer] Liaison MDX 08/26/2020 3:23 PM INFECTIOUS DISEASES Comment instrument. Additional info rmation about this Emergency Use Authorization (EUA) assay can CDT DIAGNOSTIC be found via the Lab Guide. L ABORATORY, [facility] Comment: This test should be ordered for the dete ction of SARS-CoV-2 in individuals who meet SARS-CoV-2 clinical and/or epidemi ological criteria. Test performance is unknown in asymptomatic patients. This test is for in vitro diagnostic use under the FDA EUA for laboratories certified under CLIA to perform high com plexity testing. This test has not been FDA cleared or approved. A negative result does not rule out the presence of PCR inhibitors in the specimen or target RNA in concentration below the limit of detection for the assay. The possibility of a false negati ve should be considered if the patient's recent exposure or clinical pr esentation suggests COVID-19. This test was validated by the [facility]. This laboratory i s certified under the Clinical Laboratory Improvement Amendments of 198 8 (CLIA-88) as qualified to perform high complexity laboratory testing. Specimen (Source) Anatomical Collection Method Collection Time Re ceived Time Location / / Volume Laterality Specimen from 08/25/2020 7:31 08/25/2020 nasopharyngeal PM CDT 7:36 PM CDT structure (specimen) Manuel Archer MD LAB - MICRO GENERAL ORDERABL ES Performing Organization Address City/State/ZIP Code Phon e Number INFECTIOUS DISEASES DIAGNOSTIC [address] [facility], [place] [address] LABORATORY, [facility] Group A Streptococcus PCR Throat Swab (08/25/2020 7:31 PM CDT) [facility] Method Time Signature Specimen Throat 08/25/2020 [place] Description 7:48 PM CDT [facility] Strep Group A Not Detected NDET^Not 08/26/2020 [place] O F PCR Detected 2:08 PM CDT [facility] Comment: Group A Streptococcus DNA is not detecte d. FDA approved assay performed using [employer] id GeneXpert real-time PCR. Specimen Anatomical Collection Method Collection Time Receive d Time (Source) Location / / Volume Laterality Specimen from 08/25/2020 7:31 PM 08/26/19 21 7:36 throat CDT PM CDT (specimen) Manuel Archer MD LAB - MICRO GENERAL ORDERABL ES Performing Organization Address City/State/ZIP Code Phon e Number [address] [address] [facility] [address] [place] [address] Symptomatic COVID-19 Virus (Coronavirus) by PCR (08/25/2020 7:31 PM CDT) Component Value Ref Test Analysis Performed At [facility] Range Method Time Signature COVID-19 Nasopharyngeal 08/25/2020 [place] Virus PCR to 7:40 PM CDT [facility] [place] - Source COVID-19 Test received-See 08/26/2020 INFECTIOUS Virus PCR to reflex to IDDL 1:00 PM CDT DISEASES [facility] [place] - test SARS CoV2 DIAGNOSTIC Result (COVID-19) Virus LABORATORY, RT-PCR [facility] Specimen (Source) Anatomical Collection Method Collection Time Re ceived Time Location / / Volume Laterality Specimen from 08/25/2020 7:31 08/25/2020 nasopharyngeal PM CDT 7:36 PM CDT structure (specimen) Manuel Archer MD LAB - MICRO GENERAL ORDERABL ES Performing Organization Address City/[facility]/ZIP Code Phon e Number INFECTIOUS DISEASES DIAGNOSTIC [address] [place] [address] LABORATORY, [address] [place] [address] [phone] Streptococcus A Rapid Scr w Reflx to PCR (08/25/2020 7:31 PM CDT) [facility] Method Time Signature Strep Specimen Throat 08/25/2020 [place] Description 7:34 PM CDT [facility] Streptococcus Negative NEG^Negat 08/25/2020 [place] Group A Rapid jaki 7:48 PM CDT [facility] Screen Comment: No Group A streptococcal antigen detecte d by immunoassay. Confirmatory testing in progress. Specimen Anatomical Collection Method Collection Time Receive d Time (Source) Location / / Volume Laterality Specimen from 08/25/2020 7:31 PM 08/26/19 21 7:36 throat CDT PM CDT (specimen) Manuel Archer MD LAB - MICRO GENERAL ORDERABL ES Performing Organization Address City/[facility]/ZIP Code Phon e Number [address] [address] [phone] documented in this encounter Visit Diagnoses Diagnosis Person under investigation for COVID-19 - Primary Sore throat Acute pharyngitis Cough documented in this encounter Additional Health Concerns Infection Onset Date Last Indicated Resolved Time Rule Out COVID-19 08/25/2020 08/25/2020 08/26/2020 3:2 3 PM CDT Assessment Noted Time PHQ-9 Depression Total Score: 5 03/16/2020 7:09 AM CDT documented as of this encounter Care Teams Foreign Language Professor Relationship Specialty Start Date End Date Noreen Hills PCP - General Nurse Practitioner 01/09/19 12/12/21 SEAN Haley RESEARCH GROUP DIRECTOR [address] [facility] [place] [address] Noreen Hills Assigned PCP 06/16/18 SEAN Haley RESEARCH GROUP DIRECTOR [address] [facility] [place] [address] Kalyan Galvan Personal Advocate & 08/08/19 Liaison (PAL) Lashae Trevino Pharmacist Pharmacist 10/14/19 12/01/[facility] [address] [facility] [place] [address] Eduardo Sharma MD Assigned Sleep Provider 04/02/20 05/07/21 [id number] [place] [place] [id number] Marcelo Artis Assigned Musculoskeletal 08/25/20 08/20/21 MIKAYLA Nuno Provider [address] [facility] [address] [place], [place] [id number] Rodrigo Man Assigned Surgical 08/25/2011/27 MIKAYLA Lacy Provider [address] [place] [id number] documented as of this encounter
--- OUTSIDE RECORDS SUMMARY | 2022-01-17 22:02 | XMS_ITS | Encounter Summary ---
:1965 Author Organization [place] Address [address] [place] [address] Care Team Providers Name Role Phone Noreen Hills APRN PLANT TAXONOMIST Unavailable [phone] Noreen Hills APRN PLANT TAXONOMIST Primary Care Provider [phone] Kalyan Galvan Unavailable Unavailable Lashae Trevino [facility] Unavailable [phone] Eduardo Sharma MD Unavailable Rios Monteiro MD Unavailable Reason for Visit Reason Comments Urgent Care UTI Pt is c/o that she has been having pain with urination and urinary frequency since Sunday. She noticed some blood on tissue when she wiped after urinating. She has not had a fever. Encounter Details Date Type Department Care Team Description 07/17/2020 Office Visit [facility] Steph Sunny, Acute UTI (Primary Dx); Urgent Care Pino Alejandro PA-C Dysuria; [address] Nonspecific finding on examination of [place], [place] [address] [address] [place] [address] Social History Tobacco Use [...] 08/08/2019 relatives? How often do you attend advent or baptism Patient refused 08/08/2019 services? Do you belong to any clubs or organizations such as No 08/08/2019 advent groups, [employer], fraPurpleBricks or athletic groups, or school groups? How [...] with No / Unsure 07/17/2020 1:32 PM OUTSIDE PLANT FIELD ENGINEER someone who was confirmed or suspected to have Coronavirus / COVID-19? documented as of this encounter Last Filed Vital Signs Vital Sign Reading Time Taken Comments Blood Pressure 132/70 07/17/2020 1:44 PM OUTSIDE PLANT FIELD ENGINEER Pulse 94 07/17/2020 1:44 PM OUTSIDE PLANT FIELD ENGINEER Temperature 36.8 ??C (98.3 ??F) 07/17/2020 1:44 PM OUTSIDE PLANT FIELD ENGINEER Respiratory Rate 12 07/17/2020 1:44 PM OUTSIDE PLANT FIELD ENGINEER Oxygen Saturation 96% 07/17/2020 1:44 PM OUTSIDE PLANT FIELD ENGINEER Inhaled Oxygen Concentration - - Weight 80.3 kg (177 lb) 07/17/2020 1:44 PM OUTSIDE PLANT FIELD ENGINEER Height - - Body Mass Index 32.37 01/12/2020 3:45 PM CDT documented in this encounter Patient Instructions Patient InstructionsStaci Herrera PA-C - 07/17/2020 1:35 PM OUTSIDE PLANT FIELD ENGINEER Images from the original note were not included. (N39.0) Acute UTI (primary encounter diagnosis) Comment: Plan: cefdinir (OMNICEF) 300 MG capsule, fluconazole (DIFLUCAN) 150 MG tablet (R30.0) Dysuria Comment: Plan: *UA reflex to Microscopic and Culture ([place] and [facility] (except [place] and [place]), Urine Microscopic Patient Education Understanding Urinary Tract Infections (UTIs) Most UTIs are caused by bacteria, but they may also be caused by viruses or fungi. Bacteria from thebowel are the most common source of infection.??The infection may start because of any of the following: ?? Sexual activity. During sex, bacteria can travel from the penis, vagina, or rectum into the urethra.? Bacteria outside the rectum getting into the urethra. Bacteria on the skin??outside the rectum may travel into the urethra. This is more common in women since the rectum and urethra are closer to each other than in men. Wiping from front to back after using the toilet and keeping the area clean canhelp prevent germs from getting to the urethra. ?? Blocked urine flow through the urinary tract. If urine sits too long, germs may start to grow outof control. Parts of the urinary tract The infection can??occur in any part of the urinary tract. ?? The kidneys. These organs collect and store urine. ?? The ureters. These tubes carry urine from the kidneys to the bladder. ?? The bladder. This holds urine until you are ready to let it out. ?? The urethra. This tube carries urine from the bladder out of the body. It is shorter in women, sobacteria can move through??it more easily.??The urethra is longer in men, so a UTI is less likely toreach the bladder or kidneys in men. [employer] last reviewed this educational content on 06/11/2019 ?? [id number] [employer]. [address] [place] [address], [place] [address]. All rights reserved. This information is not intended as a substitute for professional medical care. Always follow your healthcare professional's instructions. IDE PLANT FIELD ENGINEER documented in this encounter Progress Notes Staci Herrera PA-C - 07/17/2020 1:35 PM CST Patient presents with: Urgent Care UTI: Pt is c/o that she has been having pain with urination and urinary frequency since Sunday. Shenoticed some blood on tissue when she wiped after urinating. She has not had a fever. (N39.0) Acute UTI (primary encounter diagnosis) Comment: Plan: cefdinir (OMNICEF) 300 MG capsule, fluconazole (DIFLUCAN) 150 MG tablet pyridium (R30.0) Dysuria Comment: Plan: *UA reflex to Microscopic and Culture ([place] [facility] [place] [facility] (except [place] and [place]), Urine Microscopic See orders in [facility] If not improving or if condition worsens, follow up with your Primary Care Provider SUBJECTIVE: Megan Choi is a 55 year old female who presents today with dysuria for 4-5 days with hematuria since yesterday. Denies any fevers. Does have DM. Past Medical History: Diagnosis Date ??? Aftercare following surgery of the musculoskeletal system 07/03/2016 ??? Arthritis ??? Diabetes mellitus (H) Type 2 ??? Dvt femoral (deep venous thrombosis) (H) 04/17 post surgical, stopped coumadin 01/16 ??? IFG (impaired fasting glucose) 10/03/2015 Current Outpatient Medications Medication Sig Dispense Refill ??? Multiple Vitamins-Iron (DAILY-ROBERT/IRON/BETA-CAROTENE) TABS TAKE 1 TABLET BY MOUTH DAILY. (Patient not taking: Reported on 03/29/2020) 30 tablet 7 Social History Tobacco Use ??? Smoking status: Never Smoker ??? Smokeless tobacco: Never Used Substance Use Topics ??? Alcohol use: Not on file Family History Problem Relation Age of Onset ??? Diabetes Mother ??? Diabetes Father ROS: 10 point ROS of systems including Constitutional, Eyes, Respiratory, Cardiovascular, Gastroenterology, Genitourinary, Integumentary, Muscularskeletal, Psychiatric ,neurological were all negative exceptfor pertinent positives noted in my HPI OBJECTIVE: BP 132/70 (BP Location: Right arm, Patient Position: Sitting, Cuff Size: Adult Regular) Pulse 94 Temp 98.3 ??F (36.8 ??C) (Tympanic) Resp 12 Wt 80.3 kg (177 lb) LMP 10/30/2011 SpO2 96% BMI 32.37 kg/m?? Physical Exam: GENERAL APPEARANCE: healthy, alert and no distress ABDOMEN: soft, nontender, no HSM or masses and bowel sounds normal BACK: no flank pain SKIN: no suspicious lesions or rashes IDE PLANT FIELD ENGINEER documented in this encounter Nursing Notes Blank Burgos RN - 07/17/2020 1:35 PM CST Chief Complaint Patient presents with ??? Urgent Care ??? UTI Pt is c/o that she has been having pain with urination and urinary frequency since Sunday. She noticed some blood on tissue when she wiped after urinating. She has not had a fever. Initial BP 132/70 (BP Location: Right arm, Patient Position: Sitting, Cuff Size: Adult Regular) Pulse 94 Temp 98.3 ??F (36.8 ??C) (Tympanic) Resp 12 Wt 80.3 kg (177 lb) LMP 10/30/2011 SpO2 96% BMI 32.37 kg/m?? Estimated body mass index is 32.37 kg/m?? as calculated from the following: Height as of 01/12/20: 1.575 m (5' 2). Weight as of this encounter: 80.3 kg (177 lb).. BP completed using cuff size: kait Burgos R.N. IDE PLANT FIELD ENGINEER documented in this encounter Plan of Treatment Not on filedocumented as of this encounter Procedures Procedure Name Priority Date/Time Associated Diagnosis Comme nts URINE CULTURE Routine 07/17/2020 2:16 PM Nonspecific finding R esults for this OUTSIDE PLANT FIELD ENGINEER on examination of procedure are in urine the results section. URINE MICROSCOPIC Routine 07/17/2020 2:03 PM Dysuria Resu lts for this OUTSIDE PLANT FIELD ENGINEER procedure are i n the results section. UA MACROSCOPIC WITH Routine 07/17/2020 2:03 PM Dysuria Re sults for this REFLEX TO OUTSIDE PLANT FIELD ENGINEER procedure are i n MICROSCOPIC AND the results CULTURE section. documented in this encounter Results (ABNORMAL) Urine Culture Aerobic Bacterial (07/17/2020 2:16 PM OUTSIDE PLANT FIELD ENGINEER) Component Value Ref Test Analysis Performed At Patholo gist [facility] Method Time Signature Specimen Midstream Urine INFECTIOUS Description DISEASES DIAGNOSTIC LABORATORY, [facility] Special Specimen 07/18/2020 INFECTIOUS Requests received in 6:51 PM OUTSIDE PLANT FIELD ENGINEER DISEASES preservative DIAGNOSTIC LABORATORY, [facility] Culture Micro 10,000 to 50,000 colonies/mL 021 INFECTIOUS Escherichia coli 10:02 PM DISEASES (A) OUTSIDE PLANT FIELD ENGINEER DIAGNOSTIC LABORATORY, [facility] Specimen (Source) Anatomical Collection Method Collection Time Re ceived Time Location / / Volume Laterality Examination of 07/17/2020 2:16 07/17/2020 2:17 midstream urine PM OUTSIDE PLANT FIELD ENGINEER PM OUTSIDE PLANT FIELD ENGINEER specimen (procedure) Organism Antibiotic Method Susceptibility Escherichia coli Ampicillin KEYSHAWN 4 ug/mL: Suscep tible Escherichia coli Cefazolin KEYSHAWN <=4 ug/mL: Susc eptible Comment: Cefazolin KEYSHAWN breakpoints ar e for the treatment of uncomplicated urinary tract infections. ??For the treat ment of systemic infections, please contact the laboratory for additional te sting. Escherichia coli Cefoxitin KEYSHAWN <=4 ug/mL: Susc eptible Escherichia coli Ceftazidime KEYSHAWN <=1 ug/mL: Susc eptible Escherichia coli Ceftriaxone KEYSHAWN <=1 ug/mL: Susc eptible Escherichia coli Ciprofloxacin KEYSHAWN <=0.25 ug/mL: S usceptible Escherichia coli Gentamicin KEYSHAWN <=1 ug/mL: Susc eptible Escherichia coli Levofloxacin KEYSHAWN <=0.12 ug/mL: S usceptible Escherichia coli Nitrofurantoin KEYSHAWN <=16 ug/mL: Charisse ceptible Escherichia coli Tobramycin KEYSHAWN <=1 ug/mL: Susc eptible Escherichia coli Trimethoprim/Sulfamethoxazole KEYSHAWN < =1/19 ug/mL: Susceptible Escherichia coli Ampicillin/Sulbactam KEYSHAWN <=2 ug/mL: Susceptible Escherichia coli Piperacillin/Tazo KEYSHAWN <=4 ug/mL: Arteaga sceptible Escherichia coli Cefepime KEYSHAWN <=1 ug/mL: Susc eptible Staci Correa PA-C LAB - MICRO GENERAL ORDE RABASAF Performing Organization Address City/[facility]/ZIP Code Phon e Number INFECTIOUS DISEASES DIAGNOSTIC [address] [facility] [address] [address] LABORATORY, [facility] (ABNORMAL) Urine Microscopic (07/17/2020 2:03 PM OUTSIDE PLANT FIELD ENGINEER) [facility] gist Method Time Signature WBC Urine 50-100 (A) OTO5^0 - 5 07/17/2020 [facility] /HPF 2:15 PM OUTSIDE PLANT FIELD ENGINEER [facility] [place] RBC Urine 25-50 (A) OTO2^O - 2 07/17/2020 [facility] /HPF 2:15 PM OUTSIDE PLANT FIELD ENGINEER [facility] [place] Squamous Few FEW^Few 07/17/2020 [facility] Epithelial /LPF /LPF 2:15 PM OUTSIDE PLANT FIELD ENGINEER [facility] [place] N Urine Renal Tub Epi Few (A) NEG^Negati 07/17/2020 [facility] ve /HPF 2:15 PM OUTSIDE PLANT FIELD ENGINEER [facility] [place] Bacteria Urine Many (A) NEG^Negati 07/17/2020 [facility] ve /HPF 2:15 PM OUTSIDE PLANT FIELD ENGINEER [facility] [place] Specimen Anatomical Collection Method Collection Time Receive d Time (Source) Location / / Volume Laterality 07/17/2020 2:03 PM 2:04 OUTSIDE PLANT FIELD ENGINEER PM OUTSIDE PLANT FIELD ENGINEER Staci Correa PA-C LAB - URINE ORDERABLES Performing Organization Address City/[facility] Phon e Number [facility] [place] [address] [place] [address] [phone] (ABNORMAL) *UA reflex to Microscopic and Culture ([facility] [place] [facility] [place] [facility] (07/17/2020 2:03 PM OUTSIDE PLANT FIELD ENGINEER) [facility] Method Time Signature Color Urine Brown 07/17/2020 [facility] 2:15 PM OUTSIDE PLANT FIELD ENGINEER [facility] [place] Appearance Urine Slightly 07/17/2020 [facility] Cloudy 2:15 PM OUTSIDE PLANT FIELD ENGINEER [facility] Glucose Urine Negative NEG^Negat 07/17/2020 [facility] jaki mg/dL 2:15 PM OUTSIDE PLANT FIELD ENGINEER CLINICS [place]NO Bilirubin Urine Negative NEG^Negat 07/17/2020 [facility] jaki 2:15 PM OUTSIDE PLANT FIELD ENGINEER [facility] Ketones Urine Negative NEG^Negat 07/17/2020 [facility] jaki mg/dL 2:15 PM OUTSIDE PLANT FIELD ENGINEER [facility] Specific [place] >1.030 1.003 - 07/17/2020 [facility] Urine 1.035 2:15 PM OUTSIDE PLANT FIELD ENGINEER [facility] [place] Blood Urine Large (A) NEG^Negat 07/17/2020 [facility] jaki 2:15 PM OUTSIDE PLANT FIELD ENGINEER [facility] pH Urine 5.5 5.0 - 7.0 07/17/2020 [facility] pH 2:15 PM OUTSIDE PLANT FIELD ENGINEER [facility] Protein Albumin >=300 (A) NEG^Negat 07/17/2020 [facility] Urine jaki mg/dL 2:15 PM OUTSIDE PLANT FIELD ENGINEER [facility] Urobilinogen 0.2 0.2 - 1.0 07/17/2020 [facility] Urine EU/dL 2:15 PM OUTSIDE PLANT FIELD ENGINEER [facility] Nitrite Urine Negative NEG^Negat 07/17/2020 [facility] jaki 2:15 PM OUTSIDE PLANT FIELD ENGINEER [facility] Leukocyte Small (A) NEG^Negat 07/17/2020 [facility] Esterase Urine jaki 2:15 PM OUTSIDE PLANT FIELD ENGINEER [facility] Source Midstream 07/17/2020 [facility] Urine 2:04 PM OUTSIDE PLANT FIELD ENGINEER [facility] Specimen (Source) Anatomical Collection Method Collection Time Re ceived Time Location / / Volume Laterality Examination of 07/17/2020 2:03 07/17/2020 2:04 midstream urine PM OUTSIDE PLANT FIELD ENGINEER PM OUTSIDE PLANT FIELD ENGINEER specimen (procedure) Staci Correa PA-C LAB - URINE ORDERABLES Performing Organization Address City/State/ZIP Code Phon e Number [facility] [place] [address] [place] [phone] documented in this encounter Visit Diagnoses Diagnosis Acute UTI - Primary Urinary tract infection, site not specif ied Dysuria Nonspecific finding on examination of ur ine Other nonspecific finding on examination of urine documented in this encounter Additional Health Concerns Assessment Noted Time PHQ-9 Depression Total Score: 5 03/16/2020 7:09 AM CDT documented as of this encounter Care Teams Animal Anatomist Relationship Specialty Start Date End Date Noreen Hills PCP - General Nurse Practitioner 01/09/19 12/12/21 SEAN Haley PLANT TAXONOMIST [address] [facility] [place] [address] Noreen Hills Assigned PCP 06/16/18 SEAN Haley PLANT TAXONOMIST [address] [facility] [place] [address] Kalyan Galvan Personal Advocate & 08/08/19 Liaison (PAL) Lashae Trevino Pharmacist Pharmacist 10/14/19 12/01/20 [facility] [address] [facility] [place] [address] Eduardo Sharma MD Assigned Sleep Provider 04/02/20 05/07/21 [address] [facility] [address] [place] [address] Rios Monteiro MD Assigned Musculoskeletal 04/02/20 08/24/20 [address] [facility] Provider [address] [place] [address] documented as of this encounter
--- OUTSIDE RECORDS SUMMARY | 2022-01-17 22:02 | XMS_ITS | Encounter Summary ---
:1965 Author Organization [place] Address [address] [place] [address] Care Team Providers Name Role Phone Noreen Hills APRN PALLIATIVE SENIOR NP Unavailable [phone] Noreen Hills APRN PALLIATIVE SENIOR NP Primary Care Provider Kalyan Galvan Unavailable Unavailable Lashae Trevino [facility] Unavailable [phone] Eduardo Sharma MD Unavailable Rois Monteiro MD Unavailable Reason for Visit Reason Comments Medication Refill Encounter Details Date Type Department Care Team Description 07/31/2020 Refill [facility] Noreen Hills, Medication Refill Pino ESTRADA PALLIATIVE SENIOR NP [address] [place] [address] [place] [address] [phone] Social History Tobacco Use Types Packs/Day Years [...] 08/08/2019 relatives? How often do you attend denominational or scientologist Patient refused 08/08/2019 services? Do you belong to any clubs or organizations such as No 08/08/2019 denominational groups, [employer], fraAidhenscorner or athletic groups, or school groups? How [...] with No / Unsure 07/17/2020 1:32 PM CHILDREN'S AIDE someone who was confirmed or suspected to have Coronavirus / COVID-19? documented as of this encounter Miscellaneous Notes Telephone Encounter - Russell Lainey - 08/02/2020 12:52 PM CST See message to pt. Lainey Russell on 08/02/2020 at 12:52 PM DREN'S AIDE Telephone Encounter - Wilda Aponte RN - 08/02/2020 12:15 PM CST Prescription approved per [facility] Refill Protocol. Medication is being filled for 1 time refill only due to: Patient needs to be seen because visit dueApril, please assist in scheduling. Routed to Wilda Aponte RN, BSN Message handled by CLINIC NURSE. DREN'S AIDE documented in this encounter Plan of Treatment Not on filedocumented as of this encounter Visit Diagnoses Diagnosis Fibromyalgia Mylagia and myositis, unspecified documented in this encounter Additional Health Concerns Assessment Noted Time PHQ-9 Depression Total Score: 5 03/16/2020 7:09 AM CDT documented as of this encounter Care Teams Lift Operator Relationship Specialty Start Date End Date Noreen Hills PCP - General Nurse Practitioner 01/09/19 12/12/21 SEAN Haley PALLIATIVE SENIOR NP [address] [facility] [place] [address] Noreen Hills Assigned PCP 06/16/18 SEAN Haley PALLIATIVE SENIOR NP [address] [facility] [place] [address] Kalyan Galvan Personal Advocate & 08/08/19 Liaison (PAL) Lashae Trevino Pharmacist Pharmacist 10/14/19 12/01/20 Kiran [facility] [address] [facility] [place] [phone] Eduardo Sharma MD Assigned Sleep Provider 04/02/20 05/07/21 [address] [place] [address] [place] [address] Rios Monteiro MD Assigned Musculoskeletal 04/02/20 08/24/20 [address] [facility] Provider [address] [address] documented as of this encounter
--- OUTSIDE RECORDS SUMMARY | 2022-01-17 22:02 | XMS_ITS | Encounter Summary ---
:1965 Author Organization [place] Address [address] [place] [address] Care Team Providers Name Role Phone Noreen Hills APRN CARPENTER APPRENTICE Unavailable [phone] Noreen Hills APRN CARPENTER APPRENTICE Primary Care Provider [phone] Kalyan Galvan Unavailable Unavailable Lashae Trevino [facility] Unavailable [phone] Eduardo Sharma MD Unavailable Rios Monteiro MD Unavailable Encounter Details Date Type Department Care Team Description 07/17/2020 Travel Social History Tobacco Use Types Packs/Day [...] 08/08/2019 relatives? How often do you attend rastafari or buddhist Patient refused 08/08/2019 services? Do you belong to any clubs or organizations such as No 08/08/2019 rastafari groups, unions, fraternal or athletic groups, or [...] with No / Unsure 07/17/2020 1:32 PM [place] ROUTEMAN someone who was confirmed or suspected to have Coronavirus / COVID-19? documented as of this encounter Plan of Treatment Not on filedocumented as of this encounter Visit Diagnoses Not on filedocumented in this encounter Additional Health Concerns Assessment Noted Time PHQ-9 Depression Total Score: 5 03/16/2020 7:09 AM CDT documented as of this encounter Care Teams Merchandising Execution Manager Relationship Specialty Start Date End Date Noreen Hills PCP - General Nurse Practitioner 01/09/19 12/12/21 SEAN Haley CARPENTER APPRENTICE [address] [facility] [address] Noreen Hills Assigned PCP 06/16/18 SEAN Haley CARPENTER APPRENTICE [address] [facility] [address] Kalyan Galvan Personal Advocate & 08/08/19 Liaison (PAL) Lashae Trevino Pharmacist Pharmacist 10/14/19 [facility]/01/[facility] [address] [facility] [facility] [address] [place], [place] [id number] Eduardo Sharma MD Assigned Sleep Provider 04/02/20 05/07/21 [address] GARCIA [facility] [address] [place] [id number] Rios Monteiro MD Assigned Musculoskeletal 04/02/20 08/24/20 [address] [facility] Provider ROSHAN [address] [place], [place] [id number] documented as of this encounter
--- OUTSIDE RECORDS SUMMARY | 2022-01-17 22:02 | XMS_ITS | Encounter Summary ---
:1965 Author Organization [place] Address [address] [place] [address] Care Team Providers Name Role Phone Noreen Hills APRN BASKET MENDER Unavailable [phone] Noreen Hills APRN BASKET MENDER Primary Care Provider [phone] Kalyan Galvan Unavailable Unavailable Lashae Trevino [facility] Unavailable [phone] Eduardo Sharma MD Unavailable Rios Monteiro MD Unavailable Marcelo Artis PA-C Unavailable [phone] Rodrigo Man PA-C Unavailable [phone] Reason for Visit Reason Comments Medication Refill Encounter Details Date Type Department Care Team Description 06/18/2020 Refill [facility] Noreen Hills, Medication Refill Pino COMMANDING OFFICER GARAGE BASKET MENDER [address] [facility] [address] [place] [address] [address] [place] [address] [place] [address] [phone] Social History Tobacco Use Types Packs/Day Years [...] 08/08/2019 relatives? How often do you attend hinduism or latter-day Patient refused 08/08/2019 services? Do you belong to any clubs or organizations such as No 08/08/2019 hinduism groups, unions, fraternal or athletic groups, or [...] Telephone Encounter - Desirae Champagne RN - 06/18/2020 10:53 AM CST Prescription approved per [facility] Refill Protocol. Desirae Champagne RN on 06/18/2020 at 10:52 AM D MARKETING DIRECTOR documented in this encounter Plan of Treatment Not on filedocumented as of this encounter Visit Diagnoses Diagnosis Type 2 diabetes mellitus with complicati on, without long-term current use of insulin (H) documented in this encounter Additional Health Concerns Infection Onset Date Last Indicated Resolved Time Rule Out COVID-08/25/2020 08/25/2020 08/26/2020 3:2 3 PM CDT Assessment Noted Time PHQ-9 Depression Total Score: 5 03/16/2020 7:09 AM CDT documented as of this encounter Care Teams Sales Office Assistant Relationship Specialty Start Date End Date Noreen Hills PCP - General Nurse Practitioner 01/09/19 12/12/21 SEAN Haley BASKET MENDER [address] [facility] [place] [address] Noreen Hills Assigned PCP 06/16/18 SEAN Haley BASKET MENDER [address] [facility] [place] [address] Kalyan Galvan Personal Advocate & 08/08/19 Liaison (PAL) Lashae Trevino Pharmacist Pharmacist 10/14/19 12/01/20 [facility] [address] [facility] [place] [address] Eduardo Sharma MD Assigned Sleep Provider 04/02/20 05/07/21 [address]on [address] [place] [id number] Rios Monteiro MD Assigned Musculoskeletal 04/02/20 08/24/20 [address] [facility] Provider ROSHAN [address] [place] [id number] Marcelo Artis Assigned Musculoskeletal 08/25/20 08/20/21 MIKAYLA Nuno Provider [address] [facility] [address] [place] [address] Rodrigo Man Assigned Surgical 08/25/2011/27 MIKAYLA Lacy Provider [address] [facility] [address] [place], [place] [id number] documented as of this encounter
--- OUTSIDE RECORDS SUMMARY | 2022-01-17 22:03 | XMS_ITS | Encounter Summary ---
:1965 Author Organization [place] Address [address] [place] [address] Care Team Providers Name Role Phone Noreen Hills APRN RADIOLOGIC TECHNOLOGY PROGRAM DIRECTOR Unavailable [phone] Noreen Hills APRN RADIOLOGIC TECHNOLOGY PROGRAM DIRECTOR Primary Care Provider [phone] Kalyan Galvan Unavailable Unavailable Lashae Trevino [facility] Unavailable [phone] Encounter Details Date Type Department Care Team Description 03/16/2020 Travel Social History Tobacco Use Types Packs/Day [...] 08/08/2019 relatives? How often do you attend hindu or hinduism Patient refused 08/08/2019 services? Do you belong to any clubs or organizations such as No 08/08/2019 hindu groups, unions, fraternal or athletic groups, or [...] been in contact with No / Unsure 03/16/2020 7:03 AM CDT someone who was confirmed or suspected to have Coronavirus / COVID-19? documented as of this encounter Plan of Treatment Not on filedocumented as of this encounter Visit Diagnoses Not on filedocumented in this encounter Additional Health Concerns Assessment Noted Time PHQ-9 Depression Total Score: 5 03/16/2020 7:09 AM CDT documented as of this encounter Care Teams Head Of Ethics And Compliance Relationship Specialty Start Date End Date Noreen Hills PCP - General Nurse Practitioner 01/09/19 12/12/21 SEAN Haley RADIOLOGIC TECHNOLOGY PROGRAM DIRECTOR [address] [place], [place] [address] Noreen Hills PCP 06/16/18 SEAN Haley RADIOLOGIC TECHNOLOGY PROGRAM DIRECTOR [address] [place] [address] Kalyan Galvan Personal Advocate & 08/08/19 Liaison (PAL) Lashae Trevino Pharmacist Pharmacist 10/14/19 12/01/20 [facility] [address] [place] [address] documented as of this encounter
--- OUTSIDE RECORDS SUMMARY | 2022-01-17 22:03 | XMS_ITS | Encounter Summary ---
:1965 Author Organization [place] Address [address] [place] [address] Care Team Providers Name Role Phone Noreen Hills APRN MANAGER BUSINESS INTELLIGENCE Unavailable [phone] Noreen Hills APRN, CNP Primary Care Provider [phone] Kalyan Galvan Unavailable Unavailable Lashae Trevino [facility] Unavailable [phone] Eduardo Sharma MD Unavailable Rios Monteiro MD Unavailable Reason for Visit Reason Onset Date Comments Panel Management 04/06/2020 eye exam Encounter Details Date Type Department Care Team Description 04/06/2020 Telephone [facility] JeanaNoreen girarda saad (eye Clinic [place] Haley APRN MANAGER BUSINESS INTELLIGENCE exam) [address] [facility] [address] [place] [address] [place] [address] [phone] Social History Tobacco Use Types Packs/Day Years [...] 08/08/2019 relatives? How often do you attend muslim or adventism Patient refused 08/08/2019 services? Do you belong to any clubs or organizations such as No 08/08/2019 muslim groups, unions, fraternal or athletic groups, or [...] Telephone Encounter - Christi Panda MA - 04/13/2020 6:53 AM CST Patient sent My Chart response. Patient last had eye appt Feb 2019 - has appt in Jun 2020. Christi Panda CMA DRAW OPERATOR Telephone Encounter - Christi Panda MA - 04/09/2020 9:09 AM CDT Reminder letter mailed to patient. Christi Panda CMA Telephone Encounter - Christi Panda MA - 04/06/2020 3:33 PM CDT Images from the original note were not included. Patient Quality Outreach Summary: Patient is due/failing the following: Eye Exam and Immunizations Type of outreach: Sent [employer] message. Questions for provider review: None Start Working phrase here: Patient has the following on her problem list/HM: Depression / Dysthymia review 6 Month Remission: 4-8 month window range: 12 Month Remission: 10-14 month window range: PHQ-9 SCORE 01/02/2019 08/08/2019 03/16/2020 PHQ-9 Total Score - - - PHQ-9 Total Score MyChart - 9 (Mild depression) - PHQ-9 Total Score 10 9 5 If PHQ-9 recheck is 5 or more, route to provider for next steps. Diabetes Last A1C: Lab Results Component Value Date A1C 6.1 01/13/2020 A1C 6.2 08/08/2019 Last LDL: Lab Results Component Value Date LDL 103 08/08/2019 Is the patient on a Statin? Yes Is the patient on Aspirin? Excluded Medications HMG CoA Reductase Inhibitors simvastatin (ZOCOR) 20 MG tablet Salicylates ASPIRIN PO Last three blood pressure readings: BP Readings from Last 3 Encounters: 01/12/20 128/72 01/02/20 131/72 11/06/19 130/84 Tobacco Use Smoking status: Never Smoker Smokeless tobacco: Never Used Christi Panda CMA Chart routed to Care Team. documented in this encounter Plan of Treatment Not on filedocumented as of this encounter Visit Diagnoses Not on filedocumented in this encounter Additional Health Concerns Assessment Noted Time PHQ-9 Depression Total Score: 5 03/16/2020 7:09 AM CDT documented as of this encounter Care Teams Turntable Engineer Relationship Specialty Start Date End Date Noreen Hills PCP - General Nurse Practitioner 01/09/19 12/12/21 SEAN Haley MANAGER BUSINESS INTELLIGENCE [address] [facility] [place] [address] Noreen Hills Assigned PCP 06/16/18 SEAN Haley MANAGER BUSINESS INTELLIGENCE [address] [facility] [place] [address] Kalyan Galvan Personal Advocate & 08/08/19 Liaison (PAL) Lashae Trevino Pharmacist Pharmacist 10/14/19 12/01/[address] [facility] [address] [facility] [place] [id number] Eduardo hSarma MD Assigned Sleep Provider 04/02/20 05/07/21 [address] [place] [id number] Rios Monteiro MD Assigned Musculoskeletal 04/02/20 08/24/20 [address] [facility] Provider [address] [place], [place] [address] documented as of this encounter
--- OUTSIDE RECORDS SUMMARY | 2022-01-17 22:03 | XMS_ITS | Encounter Summary ---
:1965 Author Organization [place] Address [address] [place] [address] Care Team Providers Name Role Phone Noreen Hlils APRN, CNP Unavailable [phone] Noreen Hills APRN, CNP Primary Care Provider [phone] Kalyan Galvan Unavailable Unavailable Lashae Trevino [facility] Unavailable [phone] Eduardo Sharma MD Unavailable Rios Monteiro MD Unavailable Marcelo Artis PA-C Unavailable Rodrigo Man PA-C Unavailable Reason for Visit Reason Onset Date Comments Refill Request 06/14/2020 blood glucose monito ring (ONE TOUCH DELICA) lancets Refill Request 06/14/2020 blood glucose (ACCU- CHEK JANICE) test strip Encounter Details Date Type Department Care Team Description 06/14/2020 Refill [facility] Noreen Hills Req uest (blood Clinic [place] Haley APRN CNP glucose monitoring (ONE [address] [place] TOUCH DELICA) lancets); [facility] Refclaudia Request (blood [address] [place] [address] glucose ([place] [id number] JANICE) test strip) [phone] Social History Tobacco Use Types Packs/Day Years [...] How often do you attend yazidi or scientology Patient refused 08/08/2019 services? Do [...] this encounter Miscellaneous Notes Telephone Encounter - Christy Pelayo RN - 06/16/2020 11:04 AM MARINE CHRONOMETER ASSEMBLER Prescription approved per [facility] Refill Protocol. Christy Pelayo RN Flex NE CHRONOMETER ASSEMBLER Telephone Encounter - Wilda Gupta - 06/14/2020 3:55 PM CST Request from pharmacy states: ONE TOUCH VERIO TEST STRIPS and ONE TOUCH 30G DELICA LNC, NE CHRONOMETER ASSEMBLER documented in this encounter Plan of Treatment Not on filedocumented as of this encounter Visit Diagnoses Diagnosis Type 2 diabetes, HbA1c goal < 7% (H) Type II or unspecified type diabetes sukhdev litus without mention of complication, not stated as uncontrolled documented in this encounter Additional Health Concerns Infection Onset Date Last Indicated Resolved Time Rule Out COVID-19 08/25/2020 08/25/2020 08/26/2020 3:2 3 PM CDT Assessment Noted Time PHQ-9 Depression Total Score: 5 03/16/2020 7:09 AM CDT documented as of this encounter Care Teams Flight Service Agent Relationship Specialty Start Date End Date Noreen Hills PCP - General Nurse Practitioner 01/09/19 12/12/21 SEAN Haley HEAVY EQUIPMENT SUPERVISOR [address] [facility] [place] [address] Noreen Hills Assigned PCP 06/16/18 SEAN Haley HEAVY EQUIPMENT SUPERVISOR [address] [facility] [place] [address] Kalyan Galvan Personal Advocate & 08/08/19 Liaison (PAL) Lashae Trevino Pharmacist Pharmacist 10/14/19 12/01/20 [facility] [address] [place] [address] Eduardo Sharma MD Assigned Sleep Provider 04/02/20 05/07/[address] [place] [id number] Rios Monteiro MD Assigned Musculoskeletal 04/02/20 08/24/20 [address] [facility] Provider [address] [place], [place] [address] Marcelo Artis Assigned Musculoskeletal 08/25/20 08/20/21 MIKAYLA [place] Provider [address] [place], [place] [address] Rodrigo Man Assigned Surgical 08/25/2011/27 MIKAYLA Lacy Provider [address] [place] [id number] documented as of this encounter
--- OUTSIDE RECORDS SUMMARY | 2022-01-17 22:03 | XMS_ITS | Encounter Summary ---
:1965 Author Organization [place] Address [address] [place] [address] Care Team Providers Name Role Phone Noreen Hills APRN, CNP Unavailable [phone] Noreen Hills APRN, CNP Primary Care Provider [phone] Kalyan Galvan Unavailable Unavailable Lashae Trevino [facility] Unavailable [phone] Reason for Visit Reason Onset Date Comments Medication Request 03/22/2020 Metformin. Encounter Details Date Type Department Care Team Description 03/22/2020 Telephone [facility] Noreen Hills Medication Request Clinic [place] Haley APRN CNP (Metformin.) [address] [facility] [address] [place] [address] [place] [address] [phone] Social History Tobacco Use Types Packs/Day Years [...] How often do you attend gnosticism or scientology Patient refused 08/08/2019 services? Do you belong to any clubs or organizations such as No 08/08/2019 gnosticism groups, unions, fraternal or athletic groups, or [...] this encounter Miscellaneous Notes Telephone Encounter - Kalyan Galvan CNA - 03/23/2020 9:14 AM CDT Called pt. Pt noted that she takes 2 tablets (1000mg) by mouth 2 times daily. Called pharmacy to inform. Pharmacy staff verbalized understanding. Kalyan Galvan, EMT at 9:14 AM on March 23, 2020 [facility] Health Guide [phone] Telephone Encounter - Charlotte Mark CMA - 03/22/2020 10:33 AM CDT Fax rec'd from [facility] pharmacy, directions for Metformin 500mg state take 2 tablets (1000MG) by mouth 2 times daily (with meals), TAKE 1 TABLET BY MOUTH TWICE A DAY WITH MEALS LMTCB to confirm how patient is taking medication, await call back. documented in this encounter Plan of Treatment Not on filedocumented as of this encounter Visit Diagnoses Not on filedocumented in this encounter Additional Health Concerns Assessment Noted Time PHQ-9 Depression Total Score: 5 03/16/2020 7:09 AM CDT documented as of this encounter Care Teams Administrative Processor Relationship Specialty Start Date End Date Noreen Hills PCP - General Nurse Practitioner 01/09/19 12/12/21 SEAN Haley MELTER OPERATOR [address] [facility] [place] [address] Noreen Hills Assigned PCP 06/16/18 SEAN Haley MELTER OPERATOR [address] [facility] [place] [address] Kalyan Galvan Personal Advocate & 08/08/19 Liaison (PAL) Lashae Trevino Pharmacist Pharmacist 10/14/19 12/01/20 Kiran [facility] [address] [place] [address] documented as of this encounter
--- OUTSIDE RECORDS SUMMARY | 2022-01-17 22:03 | XMS_ITS | Encounter Summary ---
:1965 Author Organization [place] Address [address] [place] [address] Care Team Providers Name Role Phone Noreen Hills APRN OPTICAL ENGINEERING TECHNICIAN Unavailable [phone] Noreen Hills APRN OPTICAL ENGINEERING TECHNICIAN Primary Care Provider [phone] Kalyan Galvan Unavailable Unavailable Lashae Trevino [facility] Unavailable [phone] Encounter Details Date Type Department Care Team Description 03/09/2020 Telephone [facility] Marcelo Artis, Orthopedic Clinic [place] [address] [facility] [address] [facility] [address] [place] [address] [place], [place] [id number] [phone] Social History Tobacco Use Types Packs/Day Years [...] 08/08/2019 relatives? How often do you attend oriental orthodox or catholic Patient refused 08/08/2019 services? Do you belong to any clubs or organizations such as No 08/08/2019 oriental orthodox groups, unions, fraternal or athletic groups, or [...] been in contact with No / Unsure 02/19/2020 10:19 AM CDT someone who was confirmed or suspected to have Coronavirus / COVID-19? documented as of this encounter Miscellaneous Notes Telephone Encounter - Latisha Morales - 03/09/2020 2:18 PM CDT Returned call to patient. She states she has been able to tolerate work well with current restrictions. She feels like her activity tolerance will continue to improve with time. She still notes swelling of the thumb, and unable to cut cardboard with a scissors due to discomfort. Dramatic Critic informed Megan that swelling is normal after surgery, and make take ~6 weeks to fully dissipate. She approved of verbiage for updated work letter to say the following OK to return to work with no restrictions on 03/11/20. If she is unable to tolerate her normal work duties and she will follow up with my office for reevaluation. Patient will access letter via [employer]. Latisha Morales ATC Telephone Encounter - Kleber Del Rio - 03/09/2020 2:01 PM CDT Message from Megan, says her work would like a follow-up letter to update on work restrictions. Please call back. documented in this encounter Plan of Treatment Not on filedocumented as of this encounter Visit Diagnoses Not on filedocumented in this encounter Additional Health Concerns Assessment Noted Time PHQ-9 Depression Total Score: 9 08/09/2019 7:03 AM TIRE FINISHER documented as of this encounter Care Teams Kitchen Bath Designer Relationship Specialty Start Date End Date Noreen Hills PCP - General Nurse Practitioner 01/09/19 12/12/21 SEAN aHley OPTICAL ENGINEERING TECHNICIAN [address] [facility] [place] [address] Noreen Hills Assigned PCP 06/16/18 SEAN Haley OPTICAL ENGINEERING TECHNICIAN [address] [facility] [place] [address] Kalyan Galvan Personal Advocate & 08/08/19 Liaison (PAL) Lashae Trevino Pharmacist Pharmacist 10/14/19 12/01/20 Kiran [facility] [address] [place] [address] documented as of this encounter
--- OUTSIDE RECORDS SUMMARY | 2022-01-17 22:03 | XMS_ITS | Encounter Summary ---
:1965 Author Organization [place] Address [address] [place] [address] Care Team Providers Name Role Phone Noreen Hills APRN ROD BUSTER HELPER Unavailable [phone] Noreen Hills APRN ROD BUSTER HELPER Primary Care Provider [phone] Kalyan Galvan Unavailable Unavailable Lashae Trevino [facility] Unavailable [phone] Reason for Visit Reason Onset Date Comments Schedule Surgery 01/13/2020 right thumb trigger finger Encounter Details Date Type Department Care Team Description 01/13/[address] [facility] [address] Schedule Surgery Orth[facility] Clinic [address] [facility] (r ight thumb trigger [place] [address] finger) [address] [place] [address] [address] [place] [address] [phone] Social History Tobacco Use Types Packs/Day Years [...] 08/08/2019 relatives? How often do you attend sabianism or holiness Patient refused 08/08/2019 services? Do you belong to any clubs or organizations such as No 08/08/2019 sabianism groups, unions, fraternal or athletic groups, or [...] been in contact with No / Unsure 01/13/2020 8:49 AM CDT someone who was confirmed or suspected to have Coronavirus / COVID-19? documented as of this encounter Miscellaneous Notes Telephone Encounter - Avila Donnelly V - 01/13/2020 4:14 PM CDT Scheduled surgery. Please place COVID order. Type of surgery: right thumb trigger finger release Location of surgery: Other: [facility] Date and time of surgery: 02/09/20 @ 0730am Surgeon: Thania Pre-Op Appt Date: local Post-Op Appt Date: 02/19/20 Packet sent out: Yes Pre-cert/Authorization completed: Not Applicable Date: 01/13/20 Avila Donnelly, Suggestion Clerk documented in this encounter Plan of Treatment Not on filedocumented as of this encounter Results Asymptomatic COVID-19 Virus (Coronavirus) by PCR (02/06/2020 4:07 PM CDT) [facility] Method Time Signature COVID-19 Nasopharyngeal 02/06/2020 [place] Virus PCR to 4:[address] [facility] COVID-19 Not Detected 02/07/2020 [facility] Virus PCR to 2:10 PM CDT [facility] LABOR[facility] Comment: Collection of multiple specimens from th e same patient may be necessary to detect the virus. The possibility of a f alse negative should be considered if the patient's recent exposure or clinica l presentation suggests 2019 nCOV infection and diagnostic tests for other causes of illness are negative. Repeat testing may be considered in this setting. Viral RNA was extracted via a validated method and subsequently underwent single step reverse transcriptase-real t agustin polymerase chain reaction using primers to the CDC specified N1,N2 gene targets of CoV2 and human METALWORKING INSTRUCTOR as an internal control. A negative result does not rule out the presence of real-time PCR inhibitors in the specimen or COVID-19 RNA in christine ntrations below the limit of detection of the assay. The possibility of a fals e negative should be considered if the patients recent exposure or clinical pr esentation suggests COVID-19. Additional testing or repeat testing req uires consultation with the laboratory. Nasopharyngeal specimen is the preferred choice for swab-based SARS CoV2 testing. When collection of a nasopharyn geal swab is not possible the following are acceptable alternatives: an oropharyngeal (OP) specimen collected by a healthcare professional, or a nasal mid-turbinate (NMT) swab collected by a healthcare professional or by onsite self-collection (using a flocked tapered swab), or an anterior nares specimen collected by a healthcare profe ssional or by onsite self-collection (using a round foam swab). (Centers for Disease Control) Testing performed by [facility], Room 1-210, [address] [place] [address]. T his test was developed and its performance characteristics determined b y the [facility]. It has not been cleared or appr freedom by the FDA. The laboratory is regulated under the Cl inical Laboratory Improvement Amendments of 1988 (CLIA-88) as qualifie d to perform high-complexity testing. This test is used for clinical purposes. It should not be regarded as investigational or for research. Specimen (Source) Anatomical Collection Method Collection Time Re ceived Time Location / / Volume Laterality Specimen from 02/06/2020 4:07 02/06/2020 nasopharyngeal PM CDT 4:34 PM CDT structure (specimen) Marcelo Artis PA-C LAB - MICRO GENERAL ORDERABL ES Performing Organization Address City/State/ZIP Code Phon e Number [address] [address] [facility] Room: [address] [place] [address] 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
--- OUTSIDE RECORDS SUMMARY | 2022-01-17 22:03 | XMS_ITS | Encounter Summary ---
:1965 Author Organization [place] Address [facility]ly [facility]0 [facility] [place] [address] Care Team Providers Name Role Phone Pankaj Woods APRN, CNP Unavailable [phone] Pankaj Woods APRN, CNP Primary Care Provider [phone] Kalyan Galvan Unavailable Unavailable Lashae Trevino [facility] Unavailable [phone] Reason for Referral Diagnostic Imaging CT Scan (Routine) - Closed Specialty Diagnoses / Procedures Referred By Contact Refer red To Contact Diagnoses Chest pain, unspecified type Pankaj Woods, Procedures CT Angiogram coronary artery [facility] [address] [place] [address] Referral ID Status Reason Start Date Expiration Date Visits Requ ested Visits Authorized [id number] Closed 03/16/2020 03/16/2021 1 1 Encounter Details Date Type Department Care Team Description 03/16/[address] [facility] Heart Ian Hamilton Chest pain, unspecified Clinic Moncho Cade MD type (Primary Dx) [address] [facility] [address] [place] [address] Social History Tobacco Use Types Packs/Day Years [...] How often do you attend druze or episcopal Patient refused 08/08/2019 services? Do you belong [...] / COVID-19? documented as of this encounter Progress Notes Ian Hamilton MD - 03/16/2020 12:06 PM CDT E-consult for persistent atypical chest pain in a 54 year-old woman with CAD risk factor profile of DM2, hyperlipidemia, and family history of CAD and exercise stress echocardiogram 12/16/19 without evidence of ischemia. Based on the available data, this patient has an intermediate pretest probability of CAD; an atypical presentation of anginal symptoms would be common in both female and diabetic patients. There is a small (but nonzero) possibility of a false negative exercise echocardiogram and given herongoing symptoms and the fact that an alternative non-cardiac etiology has not been identified yet, it would be reasonable to further exclude CAD as the cause of her symptoms with a test with a higher n egative predictive value. Coronary CTA (IMG 2129 is the order) can be useful to more definitively exclude CAD as the cause of chest pain as it has the highest negative predictive value of all available non-invasive tests for CAD. If coronary CTA is negative and there is no change in her clinical presentation, it would be reasonable to work up for non-cardiac causes of chest pain. Ian Hamilton MD Cardiology documented in this encounter Miscellaneous Notes Addendum Note - Pankaj Woods APRN CNP - 03/16/2020 12:06 PM CDT Addended by: PANKAJ WOODS on: 03/16/2020 01:11 PM Modules accepted: Orders documented in this encounter Plan of Treatment Scheduled Orders Name Type Priority Associated Diagnoses Order S chedule CT Angiogram coronary Imaging Routine Chest pain, unspeci fied Expected: 03/17/2020 artery type (Approximate), Expires: 2020 documented as of this encounter Visit Diagnoses Diagnosis Chest pain, unspecified type - Primary documented in this encounter Additional Health Concerns Assessment Noted Time PHQ-9 Depression Total Score: 5 03/16/2020 7:09 AM CDT documented as of this encounter Care Teams Director Of Athletics Relationship Specialty Start Date End Date Pankaj Woods PCP - General Nurse Practitioner 01/09/19 12/12/21 SEAN Haley ALCOHOL AND DRUG COUNSELOR [address] [facility] [place] [id number] Pankaj Woods Assigned PCP 06/16/18 SEAN Haley ALCOHOL AND DRUG COUNSELOR [address] [facility] [place] [id number] Kalyan Galvan Personal Advocate & 08/08/19 Liaison (PAL) Lashae Trevino Pharmacist Pharmacist 10/14/19 12/01/20 Kiran, [facility] [address] [facility] [place] [id number] documented as of this encounter
--- OUTSIDE RECORDS SUMMARY | 2022-01-17 22:03 | XMS_ITS | Encounter Summary ---
:1965 Author Organization [place] Address [address] [place] [address] Care Team Providers Name Role Phone Noreen Hills APRN DAIRY SUPPLIES SALES REPRESENTATIVE Unavailable [phone] Noreen Hills APRN, CNP Primary Care Provider [phone] Kalyan Galvan Unavailable Unavailable Lashae Trevino [facility] Unavailable [phone] Reason for Visit Reason Comments Diabetes Encounter Details Date Type Department Care Team Description 03/16/2020 Virtual Visit [facility] Noreen Hills Migraine without status migrainosus, not intractable, unspecified migraine type (Primary Dx); Clinic Pino Haley APRN Snoring; [address] [place] DAIRY SUPPLIES SALES REPRESENTATIVE Persistent insomnia; [address] [facility] Chest pain, unspecified type ; [address] [facility] [address] [address] [address] Type 2 diabetes mellitus with complicati on, without long-term current use of insulin (H) [place] [address] [place] [address] Social History Tobacco Use Types Packs/Day Years [...] 08/08/2019 relatives? How often do you attend samaritan or nondenominational Patient refused 08/08/2019 services? Do you belong to any clubs or organizations such as No 08/08/2019 samaritan groups, unions, fraternal or athletic groups, or [...] Sign Reading Time Taken Comments Blood Pressure - - Pulse - - Temperature - - Respiratory Rate - - Oxygen Saturation - - Inhaled Oxygen Concentration - - Weight 78.6 kg (173 lb 3.2 oz) 03/16/2020 7:36 AM CDT Height - - Body Mass Index 31.68 01/12/2020 3:45 PM CDT documented in this encounter Progress Notes Noreen Hills, SEAN DAIRY SUPPLIES SALES REPRESENTATIVE - 03/16/2020 7:15 AM CDT Megan Choi is a 54 year old female who is being evaluated via a billable telephone visit. The patient has been notified of following: This telephone visit will be conducted via a call between you and your physician/provider. We have found that certain health care needs can be provided without the need for a physical exam. This service lets us provide the care you need with a short phone conversation. If a prescription is necessary we can send it directly to your pharmacy. If lab work is needed we can place an order for that and you can then stop by our lab to have the test done at a later time. Telephone visits are billed at different rates depending on your insurance coverage. During this emergency period, for some insurers they may be billed the same as an in-person visit. Please reach out to your insurance provider with any questions. If during the course of the call the physician/provider feels a telephone visit is not appropriate, you will not be charged for this service. Patient has given verbal consent for Telephone visit? Yes What phone number would you like to be contacted at? [phone] How would you like to obtain your AVS? MyChart Subjective Megan Choi is a 54 year old female who presents via phone visit today for the following health issues: HPI Diabetes Follow-up ?? How often are you checking your blood sugar? Not at all ?? What concerns do you have today about your diabetes? None ?? Do you have any of these symptoms? (Select all that apply) Numbness in feet, Excessive thirst, Blurry vision and Weight loss ?? Have you had a diabetic eye exam in the last 12 months? No, pt aware needs to make appt BP Readings from Last 2 Encounters: 01/12/20 128/72 01/02/20 131/72 Hemoglobin A1C (%) Date Value 01/13/2020 6.1 (H) 08/08/2019 6.2 (H) LDL Cholesterol Calculated (mg/dL) Date Value 08/08/2019 103 (H) 04/09/2018 87 Pt would like to discuss how hard it is to be working. She notes it is hard for her to stand after acouple hours secondary to pain. Pt notes her fibromyalgia is worsening. Pt also notes her sleep is disrupted by this soreness/pain. Associated symptoms include tingling in feet. 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 Has explored sitting down at work but is not allowed to do that at thispoint. Wants to change jobs but finding it difficult because of COVID-19. On January 28, 2020 - had severe chest pain bout for about 10 minutes similar to when she went to ER in October 2019. She had tests done afterwards including a cardiac stress tests without results. Pt wanted to run the idea if it was possibly pericarditis. Does note she has not had a bout since then but does note an underlying ache. Chest pain. Doubles over. Lasts 8-10 minutes. Has happened twice. Now feels she has a residue pain that's very mild but barely noticeable. Doesn't go away with ibuprofen. Takes omeprazole daily. Pain doesn't occur with eating or with being hungry. Pushing on chest doesn't make it worse. Pt had recent surgery on 02/09/2020 for R trigger finger and notes it is still swollen. Pt with hx ofarthritis. ?? How many servings of fruits and vegetables do you eat daily? 0-1 ?? On average, how many sweetened beverages do you drink each day (Examples: soda, juice, sweet tea,etc. Do NOT count diet or artificially sweetened beverages)? 0 ?? How many days per week do you exercise enough to make your heart beat faster? 3 or less ?? How many minutes a day do you exercise enough to make your heart beat faster? 9 or less How many days per week do you miss taking your medication? 2 ?? What makes it hard for you to take your medications? tired and forget Review of Systems Constitutional, HEENT, cardiovascular, pulmonary, GI, , musculoskeletal, neuro, skin, endocrine and psych systems are negative, except as otherwise noted. Assessment/Plan: Assessment & Plan Migraine without status migrainosus, not intractable, unspecified migraine type Much improved Snoring Persistent insomnia Planning on getting sleep study. Chest pain, unspecified type See above. I suspect non cardiac etiology. I submitted an e-consult to cardiology. If they deem it non cardiac, will consider GI referral vs EGD for possible GI cause. Type 2 diabetes mellitus with complication, without long-term current use of insulin (H) Stable on Metformin - REVIEW OF HEALTH MAINTENANCE PROTOCOL ORDERS BMI: Estimated body mass index is 33.11 kg/m?? as calculated from the following: Height as of 01/12/20: 1.575 m (5' 2). Weight as of 01/12/20: 82.1 kg (181 lb). Weight management plan: Discussed healthy diet and exercise guidelines See Patient Instructions No follow-ups on file. Noreen Hills APRN CNP [facility] Phone call duration: 35 minutes documented in this encounter Plan of Treatment Scheduled Orders Name Type Priority Associated Diagnoses Order S chedule A1C FUTURE 1yr Lab Routine Type 2 diabetes mellitus Expected: 02/14/2021 with complication, (Approxim ate), without long-term Expires: 1 current use of insulin (H) Albumin Random Urine Lab Routine Type 2 diabetes neha itus Expected: 03/17/2020 Quantitative with Creat with complication , (Approximate), Ratio without long-term Expires: 1 current use of insulin (H) Lipid panel reflex to Lab Routine Type 2 diabetes sukhdev litus Expected: 02/14/2021 direct LDL Fasting with complication, (Ap proximate), without long-term Expires: 1 current use of insulin (H) documented as of this encounter Visit Diagnoses Diagnosis Migraine without status migrainosus, not intractable, unspecified migraine type - Primary Snoring Other dyspnea and respiratory abnormalit y Persistent insomnia Persistent disorder of initiating or martínez ntaining sleep Chest pain, unspecified type Type 2 diabetes mellitus with complicati on, without long-term current use of insulin (H) documented in this encounter Additional Health Concerns Assessment Noted Time PHQ-9 Depression Total Score: 5 03/16/2020 7:09 AM CDT documented as of this encounter Care Teams Recording Artist Relationship Specialty Start Date End Date Noreen Hills PCP - General Nurse Practitioner 01/09/19 12/12/21 SEAN Haley DAIRY SUPPLIES SALES REPRESENTATIVE [address] [facility] [place] [address] Noreen Hills Assigned PCP 06/16/18 SEAN Haley DAIRY SUPPLIES SALES REPRESENTATIVE [address] [facility] [place] [phone] Kalyan Galvan Personal Advocate & 08/08/19 Liaison (PAL) Lashae Trevino Pharmacist Pharmacist 10/14/19 12/01/20 Kiran [facility] [address] [place] [id number] documented as of this encounter
--- OUTSIDE RECORDS SUMMARY | 2022-01-17 22:03 | XMS_ITS | Encounter Summary ---
:1965 Author Organization [place] Address [address] [place] [address] Care Team Providers Name Role Phone Noreen Hills APRN ECOLOGY PROFESSOR Unavailable [phone] Noreen Hills APRN ECOLOGY PROFESSOR Primary Care Provider [phone] Kalyan Galvan Unavailable Unavailable Lashae Trevino [facility] Unavailable [phone] Eduardo Sharma MD Unavailable Rios Monteiro MD Unavailable Reason for Visit Reason Comments Medication Refill Encounter Details Date Type Department Care Team Description 03/07/[address] [facility] Noreen Hills, Medication Refill Pino MIRELESN ECOLOGY PROFESSOR [address] [facility] [address] [place] [address] [address] [place] [address] [place] [address] [phone] Social History Tobacco Use Types Packs/Day Years [...] 08/08/2019 relatives? How often do you attend religious or confucianism Patient refused 08/08/2019 services? Do you belong to any clubs or organizations such as No 08/08/2019 religious groups, unions, fraIbetor or athletic groups, or school groups? How [...] this encounter Miscellaneous Notes Telephone Encounter - Radha Manning RN - 03/08/2020 12:54 PM CDT Routing refill request to provider for review/approval because: Drug not on the [facility] refill protocol Radha Manning, RN [facility] -- Triage Nurse documented in this encounter Plan of Treatment Not on filedocumented as of this encounter Visit Diagnoses Diagnosis Persistent insomnia Persistent disorder of initiating or martínez ntaining sleep documented in this encounter Additional Health Concerns Assessment Noted Time PHQ-9 Depression Total Score: 9 08/09/2019 7:03 AM PERFORATING MACHINE OPERATOR documented as of this encounter Care Teams Tube Splicer Relationship Specialty Start Date End Date Noreen Hills PCP - General Nurse Practitioner 01/09/19 12/12/21 SEAN Haley ECOLOGY PROFESSOR [address] [facility] [place] [address] Noreen Hills Assigned PCP 06/16/18 SEAN Haley ECOLOGY PROFESSOR [address] [facility] [place] [address] Kalyan Galvan Personal Advocate & 08/08/19 Liaison (PAL) Lashae Trevino Pharmacist Pharmacist 10/14/19 12/01/20 [facility] [address] [facility] [place] [address] Eduardo Sharma MD Assigned Sleep Provider 04/02/20 05/07/21 [address] [place] [id number] Rios Monteiro MD Assigned Musculoskeletal 04/02/20 08/24/20 [id number] [employer] Provider [address] [place] [address] documented as of this encounter
--- OUTSIDE RECORDS SUMMARY | 2022-01-17 22:03 | XMS_ITS | Encounter Summary ---
:1965 Author Organization [place] Address [address] [place] [address] Care Team Providers Name Role Phone Noreen Hills APRN SPECIAL SHOPPER Unavailable [phone] Noreen Hills APRN SPECIAL SHOPPER Primary Care Provider [phone] Kalyan Galvan Unavailable Unavailable Lashae Trevino [facility] Unavailable [phone] Encounter Details Date Type Department Care Team Description 02/06/2020 Travel Social History Tobacco Use Types Packs/Day [...] 08/08/2019 relatives? How often do you attend protestant or christian Patient refused 08/08/2019 services? Do you belong to any clubs or organizations such as No 08/08/2019 protestant groups, unions, fraternal or athletic groups, or [...] last month, have you been in contact Unable to assess 02/06/2020 4:00 PM CDT with someone who was confirmed or suspected to have Coronavirus / COVID-19? documented as of this encounter Plan of Treatment Not on filedocumented as of this encounter Visit Diagnoses Not on filedocumented in this encounter Additional Health Concerns Assessment Noted Time PHQ-9 Depression Total Score: 9 08/09/2019 7:03 AM EXPERIMENTAL PREFLIGHT MECHANIC documented as of this encounter Care Teams Dust Collector Relationship Specialty Start Date End Date Noreen Hills PCP - General Nurse Practitioner 01/09/19 12/12/21 SEAN Haley SPECIAL SHOPPER [address] [facility] [address] [place], [place] [address] JeanaNoreen girard PCP 06/16/18 SEAN Haley SPECIAL SHOPPER [address] [facility] [address] [place], [place] [address] Kalyan Galvan Personal Advocate & 08/08/19 Liaison (PAL) Lashae Trevino Pharmacist Pharmacist 10/14/19 12/01/[facility] [address] [facility] [address] [place], [place] [address] documented as of this encounter
--- OUTSIDE RECORDS SUMMARY | 2022-01-17 22:03 | XMS_ITS | Encounter Summary ---
:1965 Author Organization [place] Address [address] [place] [address] Care Team Providers Name Role Phone Noreen Hills APRN HUSBANDRY PERSON Unavailable [phone] Noreen Hills APRN HUSBANDRY PERSON Primary Care Provider [phone] Kalyan Galvan Unavailable Unavailable Lashae Trevino [facility] Unavailable [phone] Encounter Details Date Type Department Care Team Description 01/13/2020 Travel Social History Tobacco Use Types Packs/Day [...] 08/08/2019 relatives? How often do you attend buddhist or caodaism Patient refused 08/08/2019 services? Do you belong to any clubs or organizations such as No 08/08/2019 buddhist groups, unions, fraternal or athletic groups, or [...] Depression Total Score: 9 08/09/2019 7:03 AM MANUFACTURING RECRUITER documented as of this encounter Care Teams Social Security Specialist Relationship Specialty Start Date End Date Noreen Hills PCP - General Nurse Practitioner 01/09/19 12/12/21 SEAN Haley HUSBANDRY PERSON [address] [facility] [address] [place], [place] [address] Noreen Hills PCP 06/16/18 SEAN Haley HUSBANDRY PERSON [address] [place] [address] Kalyan Galvan Personal Advocate & 08/08/19 Liaison (PAL) Lashae Trevino Pharmacist Pharmacist 10/14/19 [facility]/01/[facility] [address] [facility] [address] [place], [place] [address] documented as of this encounter
--- OUTSIDE RECORDS SUMMARY | 2022-01-17 22:03 | XMS_ITS | Encounter Summary ---
:1965 Author Organization [place] Address [address] [place] [address] Care Team Providers Name Role Phone Noreen Hills APRN CARPENTER APPRENTICE Unavailable [phone] Noreen Hills APRN CARPENTER APPRENTICE Primary Care Provider [phone] Kalyan Galvan Unavailable Unavailable Lashae Trevino [facility] Unavailable [phone] Eduardo Sharma MD Unavailable Rios Monteiro MD Unavailable Marcelo Artis PA-C Unavailable [phone] Rodrigo Man PA-C Unavailable [phone] Reason for Visit Reason Onset Date Comments Refill Request 05/29/2020 omeprazole (PRILOSEC ) [address] capsule Encounter Details Date Type Department Care Team Description 05/29/2020 Refill [facility] Noreen Hillsill [facility] Pino Haley APRN CNP (omeprazole (PRILOSEC) [address] [facility] [address] capsule) [facility] [address] [place] [address] [place] [address] [phone] Social History Tobacco Use Types Packs/Day Years [...] 08/08/2019 relatives? How often do you attend judaism or yazdanism Patient refused 08/08/2019 services? Do you belong to any clubs or organizations such as No 08/08/2019 judaism groups, unions, fraternal or athletic groups, or [...] this encounter Miscellaneous Notes Telephone Encounter - Keyona Mantilla RN - 05/31/2020 10:42 AM MANAGER SPANISH Patient has refills remaining with requesting pharmacy. Keyona Palacios - Registered Nurse [facility] GER SPANISH Telephone Encounter - Kartik Javier - 05/29/2020 5:01 PM CST Alternative Requested: Insurance covers max 90 days in a year. Please submit PA to continue therapy. GER SPANISH documented in this encounter Plan of Treatment [...] documented as of this encounter Care Teams Brass Roller Relationship Specialty Start Date End Date Noreen Hills PCP - General Nurse Practitioner 01/09/19 12/12/21 SEAN Haley CARPENTER APPRENTICE [address] [facility] [place] [id number] Noreen Hills Assigned PCP 06/16/18 SEAN Haley CARPENTER APPRENTICE [address] [facility] [place] [address] Kalyan Galvan Personal Advocate & 08/08/19 Liaison (PAL) Lashae Trevino Pharmacist Pharmacist 10/14/19 12/01/20 Kiran [facility] [address] [place] [address] Eduardo Sharma MD Assigned Sleep Provider 04/02/20 05/07/[address] [place] [address] Rios Monteiro MD Assigned Musculoskeletal 04/02/20 08/24/20 [address] [facility] Provider [address] [place], [place] [address] Marcelo Artis Assigned Musculoskeletal 08/25/20 08/20/21 MIKAYLA Nuno Provider [address] [place], [place] [id number] Rodrigo Man Assigned Surgical 08/25/2011/27 MIKAYLA Lacy Provider [address] [place] [id number] documented as of this encounter
--- OUTSIDE RECORDS SUMMARY | 2022-01-17 22:03 | XMS_ITS | Encounter Summary ---
:1965 Author Organization [place] Address [address] [place] [address] Care Team Providers Name Role Phone Noreen Hills APRN FOOD AND BEVERAGE MANAGER Unavailable [phone] Noreen Hills APRN FOOD AND BEVERAGE MANAGER Primary Care Provider [phone] Kalyan Galvan Unavailable Unavailable Lashae Trevino [facility] Unavailable [phone] Reason for Visit Reason Comments Surgical Followup Right Trigger release, DOS , Dr. Monteiro Encounter Details Date Type Department Care Team Description 02/19/[address] [facility] Marcelo Artis opedic aftercare [facility] MIKAYLA Nuno (Primary Dx) [place] [address] [facility] [address] [facility] [address] [place] [address] [place] [address] [phone] Social History Tobacco Use Types Packs/Day Years [...] 08/08/2019 relatives? How often do you attend jewish or buddhist Patient refused 08/08/2019 services? Do you belong to any clubs or organizations such as No 08/08/2019 jewish groups, unions, fraternal or athletic groups, or [...] / COVID-19? documented as of this encounter Patient Instructions Patient InstructionsMarcelo Artis PA-C - 02/19/2020 10:40 AM CDT Incision Care: Sutures were removed and Steri-Strips applied in usual fashion. Keep dry 24-48 hours. Showering ok after that time, however no soaking or scrubbing of incision for 1 weeks. Steri-strips will most likely fall off on their own, however they may be removed after 1 weeks with rubbing alcohol if they have not. If draining or bleeding stops the tape-strips are enough coverage unless you were instructed otherwise or you would like to cover for comfort. If drainage or bleeding continues please cover with clean dressings. Gradually increase your activities as you can tolerated them, starting at a level well below what you would normally do. Scar tissue may develop and be present at or deep to the incision site for several weeks to months which may feel like a lump. Gentle massage to the area when tolerated may help reduce this. Also the top layers of skin may peel away over the next weeks. Follow up as needed in clinic. For local anesthetic Chloroprocaine vs lidocaine. For Arthritis. Ibuprofen (advil, motrin) - 400-600 mg every 6 hours. Naproxen Sodium (alleve) 440 mg every 12 hours. documented in this encounter Progress Notes Marcelo Artis PA-C - 02/19/2020 10:40 AM CDT HISTORY OF PRESENT ILLNESS: Megan Choi is a 54 year old female who is seen in follow up for Right Trigger release, DOS 02/09/20, Dr. Monteiro - David herb release. Present symptoms: Pt reports symptom improvement. No triggering. Is keeping covered. Is lightly using hand for activities. Still notes edema and restriction in bending with pain at site on container washer machine. 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 Also conveys had lots of pain during surgery, Lidocaine was not effective. Denies Chest pain, Calve pain, Fever, Chills. Current Treatment: Postop. PHYSICAL EXAM: There were no vitals taken for this visit. There is no weight on file to calculate BMI. GENERAL APPEARANCE: healthy, alert and no distress PSYCH: mentation appears normal and affect normal/bright MSK: Right: Thumb . Incision clean and dry, Sutures present, healing. no incisional erythema. No Ecchymosis. Edema moderate at thumb vs other digits. CMS: trell incisional numbness, otherwise grossly intact to digits. AROM: mild restriction in flexion, otherwise WNL with no triggering. ASSESSMENT: Megan Choi is a 54 year old female S/P Right Trigger release, DOS 02/09/20, Dr. Monteiro- David herb release. Healing incision.. Probable underlying arthritis. PLAN: - Surgery discussed, images reviewed if applicable, and all questions were answered at this time. - Sutures removed with sterile technique, steri-strips applied in usual fashion, care instructions given and verbally acknowledged. - Medications: OTC PRN. - Physical Therapy: As instructed/ RICE and PROM. - AAT - RTW letter, lifting restriction 10 lbs. - pt understands tendon will take 6-8 weeks of healing. We also discussed option to say STOP during local or notify surgeon prior to surgery that Lidocaine is ineffective. Return to clinic PRN. Marcelo Artis PA-C Dept. Orthopedic Surgery [facility] 02/19/2020 documented in this encounter Plan of Treatment Not on filedocumented as of this encounter Visit Diagnoses Diagnosis Orthopedic aftercare - Primary Unspecified orthopedic aftercare documented in this encounter Additional Health Concerns Assessment Noted Time PHQ-9 Depression Total Score: 9 08/09/2019 7:03 AM SOUND ENGINEER documented as of this encounter Care Teams Forestry And Wildlife Manager Relationship Specialty Start Date End Date Noreen Hills PCP - General Nurse Practitioner 01/09/19 12/12/21 SEAN Haley FOOD AND BEVERAGE MANAGER [address] [facility] [place] [address] Noreen Hills Assigned PCP 06/16/18 SEAN Haley FOOD AND BEVERAGE MANAGER [address] [facility] [place] [address] Kalyan Galvan Personal Advocate & 08/08/19 Liaison (PAL) Lashae Trevino Pharmacist Pharmacist 10/14/19 12/01/20 Kiran, [facility] [address] [place] [address] documented as of this encounter
--- OUTSIDE RECORDS SUMMARY | 2022-01-17 22:03 | XMS_ITS | Encounter Summary ---
:1965 Author Organization [place] Address [address] [place] [address] Care Team Providers Name Role Phone Noreen Hills APRN WEARING APPAREL SHAKER Unavailable [phone] Noreen Hills APRN WEARING APPAREL SHAKER Primary Care Provider [phone] Kalyan Galvan Unavailable Unavailable Lashae Trevino [facility] Unavailable [phone] Encounter Details Date Type Department Care Team Description 01/13/2020 Telephone [facility] Noreen Hills Eagan APRN WEARING APPAREL SHAKER [address] [facility] [address] [facility] [address] [place] [address] [place] [address] [phone] Social History Tobacco Use Types Packs/Day Years [...] 08/08/2019 relatives? How often do you attend caodaism or denominational Patient refused 08/08/2019 services? Do you belong to any clubs or organizations such as No 08/08/2019 caodaism groups, unions, fraternal or athletic groups, or [...] this encounter Miscellaneous Notes Telephone Encounter - Edel Mosqueda, WYATT - 01/13/2020 10:14 AM CDT Let pt know she can seed cone picker anytime. Edel Mosqueda MA Telephone Encounter - Noreen Hills APRN CNP - 01/13/2020 9:56 AM CDT Please call pt to schedule lab visit to seed cone picker FIT documented in this encounter Plan of Treatment Scheduled Orders Name Type Priority Associated Diagnoses Order S chedule Fecal colorectal cancer Lab Routine Special screening for Expected: 01/14/2020 screen (FIT) malignant neoplasms, (Approx imate), colon Expires: 2020 documented as of this encounter Visit Diagnoses Diagnosis Special screening for malignant neoplasm s, colon - Primary documented in this encounter Additional Health Concerns Assessment Noted Time PHQ-9 Depression Total Score: 9 08/09/2019 7:03 AM COSTUME SPECIALIST documented as of this encounter Care Teams Call Center Operations Manager Relationship Specialty Start Date End Date Noreen Hills PCP - General Nurse Practitioner 01/09/19 12/12/21 SEAN Haley WEARING APPAREL SHAKER [address] [facility] [place] [address] Noreen Hills Assigned PCP 06/16/18 SEAN Haley WEARING APPAREL SHAKER [address] [facility] [place] [address] Kalyan Galvan Personal Advocate & 08/08/19 Liaison (PAL) Lashae Trevino Pharmacist Pharmacist 10/14/19 12/01/20 [facility] [address] [facility] [place] [address] documented as of this encounter
--- OUTSIDE RECORDS SUMMARY | 2022-01-17 22:03 | XMS_ITS | Encounter Summary ---
:1965 Author Organization [place] Address [address] [place] [address] Care Team Providers Name Role Phone Noreen Hills APRN MANAGER ACCESS Unavailable [phone] Noreen Hills APRN MANAGER ACCESS Primary Care Provider [phone] Kalyan Galvan Unavailable Unavailable Lashae Trevino [facility] Unavailable [phone] Reason for Visit Reason Onset Date Comments Covid 19 Testing 02/06/2020 Encounter Details Date Type Department Care Team Description 02/06/2020 Orders Only [facility] Marcelo Artis zachary finger of Urgent Care Jolly Nuno PA-C right thumb [address] [address] [place], [place] [id number] (Wo rk) Social History Tobacco Use Types Packs/Day Years [...] 08/08/2019 relatives? How often do you attend rastafarian or anabaptism Patient refused 08/08/2019 services? Do you belong to any clubs or organizations such as No 08/08/2019 rastafarian groups, unions, fraternal or athletic groups, or [...] documented as of this encounter Progress Notes Sydnie Wells, WYATT - 02/06/2020 4:00 PM CDT COVID-19 PCR test completed. Patient handout For Patients Who Have Been Tested for Covid-19 (Coronavirus) was given to the patient, which includes test result notification process. documented in this encounter Plan of Treatment Not on filedocumented as of this encounter Procedures Procedure Name Priority Date/Time Associated Diagnosis Comme nts COVID-19 VIRUS Routine 02/06/2020 4:07 PM Trigger finger of Re sults for this (CORONAVIRUS) BY CDT right thumb procedure a re in PCR the results section. documented in this encounter Results Asymptomatic COVID-19 Virus (Coronavirus) by PCR (02/06/2020 4:07 PM CDT) [facility] Method Time Signature COVID-19 Nasopharyngeal 02/06/2020 VERNER Virus PCR to 4:35 PM CDT [facility] COVID-19 Not Detected 02/07/2020 [facility] Virus PCR to 2:10 PM CDT [facility] - GENOMICS Result CENTER LABORATORY Comment: Collection of [...] N1,N2 gene targets of CoV2 and human ARGON TESTER as an internal control. A negative result [...] (Centers for Disease Control) Testing performed by [facility], Room 1-210, [address] [place] [address]. T his test was developed and its performance characteristics determined b y the [facility]. It has not been cleared or [...] Organization Address City/State/ZIP Code Phon e Number [address] [address] [facility] Room: 1-[address] [address] [facility] documented in this encounter Visit Diagnoses Diagnosis Trigger finger of right thumb documented in this encounter Additional Health Concerns Assessment Noted Time PHQ-9 Depression Total Score: 9 08/09/2019 7:03 AM BLADE SHARPENER documented as of this encounter Care Teams Dye Mixer Relationship Specialty Start Date End Date Noreen Hills PCP - General Nurse Practitioner 01/09/19 12/12/21 SEAN Haley MANAGER ACCESS [address] [facility] [place] [address] Noreen Hills Assigned PCP 06/16/18 SEAN Haley MANAGER ACCESS [address] [facility] [place] [address] Kalyan Galvan Personal Advocate & 08/08/19 Liaison (PAL) Lashae Trevino Pharmacist Pharmacist 10/14/19 12/01/20 Kiran, [facility] [address] [place] [address] documented as of this encounter
--- OUTSIDE RECORDS SUMMARY | 2022-01-17 22:03 | XMS_ITS | Encounter Summary ---
:1965 Author Organization [place] Address [address] [place] [address] Care Team Providers Name Role Phone Noeren Hills APRN FISH WARDEN Unavailable [phone] Noreen Hills APRN FISH WARDEN Primary Care Provider [phone] Kalyan Galvan Unavailable Unavailable Lashae Trevino [facility] Unavailable [phone] Encounter Details Date Type Department Care Team Description 02/19/2020 Travel Social History Tobacco Use Types Packs/Day [...] 08/08/2019 relatives? How often do you attend yazidism or sikh Patient refused 08/08/2019 services? Do you belong to any clubs or organizations such as No 08/08/2019 yazidism groups, unions, fraternal or athletic groups, or [...] Depression Total Score: 9 08/09/2019 7:03 AM MATERIAL COMBINER documented as of this encounter Care Teams Agriculture Science Teacher Relationship Specialty Start Date End Date Noreen Hills PCP - General Nurse Practitioner 01/09/19 12/12/21 SEAN Haley FISH WARDEN [address] [facility] [address] [place], [place] [address] Noreen Hills PCP 06/16/18 SEAN Haley FISH WARDEN [address] [facility] [place] [place] [address] Kalyan Galvan Personal Advocate & 08/08/19 Liaison (PAL) Lashae Trevino Pharmacist Pharmacist 10/14/19 12/01/20 [facility] [address] [facility] [address] [place], [place] [address] documented as of this encounter
--- OUTSIDE RECORDS SUMMARY | 2022-01-17 22:03 | XMS_ITS | Encounter Summary ---
:1965 Author Organization [place] Address [address] [place] [address] Care Team Providers Name Role Phone Noreen Hills APRN SURFACER Unavailable [phone] Noreen Hills APRN SURFACER Primary Care Provider [phone] Kalyan Galvan Unavailable Unavailable Lashae Trevino [facility] Unavailable [phone] Eduardo Sharma MD Unavailable Rios Monteiro MD Unavailable Reason for Visit Reason Onset Date Comments Refill Request 06/17/2020 Encounter Details Date Type Department Care Team Description 06/16/2020 Refill [employer] Noreen Hills istine, Refill Request [facility]ADA SURFACER [address] [place] [address] [place] [address] [phone] Social History Tobacco Use Types Packs/Day Years [...] How often do you attend samaritan or church Patient refused 08/08/2019 services? Do you belong to any clubs or organizations such as No 08/08/2019 samaritan groups, [employer], [employer]oo [employer] or athletic groups, or school groups? How [...] Telephone Encounter - Keyona Mantilla RN - 06/16/2020 11:13 AM BASIN FINISH OPERATOR TIG WELDER Prescription approved per [facility], [facility] or [facility] refill protocol. Keyona Palacios - Registered Nurse [facility] N FINISH OPERATOR TIG WELDER Telephone Encounter - Christy Pelayo RN - 06/16/2020 11:05 AM BASIN FINISH OPERATOR TIG WELDER Patient needing refill of medication per call. Christy Pelayo RN Flex N FINISH OPERATOR TIG WELDER documented in this encounter Plan of Treatment Not on filedocumented as of this encounter Visit Diagnoses Diagnosis Gastroesophageal reflux disease without esophagitis Esophageal reflux documented in this encounter Additional Health Concerns Assessment Noted Time PHQ-9 Depression Total Score: 5 03/16/2020 7:09 AM CDT documented as of this encounter Care Teams Turbine Engineer Relationship Specialty Start Date End Date Noreen Hills PCP - General Nurse Practitioner 01/09/19 12/12/21 SEAN Haley SURFACER [address] [facility] [place] [address] Noreen Hills Assigned PCP 06/16/18 SEAN Haley SURFACER [address] [facility] [place] [address] Kalyan Galvan Personal Advocate & 08/08/19 Liaison (PAL) Lashae Trevino Pharmacist Pharmacist 10/14/19 12/01/20 [facility] [address] [facility] [place] [address] Eduardo Sharma MD Assigned Sleep Provider 04/02/20 05/07/21 [address] [place] [address] Rios Monteiro MD Assigned Musculoskeletal 04/02/20 08/24/20 [id number] [facility] Provider [place] [place] [id number] documented as of this encounter
--- OUTSIDE RECORDS SUMMARY | 2022-01-17 22:04 | XMS_ITS | Encounter Summary ---
:1965 Author Organization [place] Address [address] [place] [address] Care Team Providers Name Role Phone Noreen Hills APRN PATIENT'S LIBRARIAN Unavailable [phone] Noreen Hills APRN PATIENT'S LIBRARIAN Primary Care Provider [phone] Kalyan Galvan Unavailable Unavailable Lashae Trevino [facility] Unavailable [phone] Encounter Details Date Type Department Care Team Description 01/12/2020 Orders Only [facility] care maintenance [facility] [address] [facility] [address] [place] [address] Social History Tobacco Use [...] How often do you attend sikh or jewish Patient refused 08/08/2019 services? Do you belong to any clubs or organizations such as No 08/08/2019 sikh groups, unions, fraternal or athletic groups, or [...] Name Priority Date/Time Associated Diagnosis Comme nts FECAL COLORECTAL Routine 01/12/2020 8:00 AM Health care Resul ts for this CANCER SCREEN FIT CDT maintenance procedure are in the results section. documented in this encounter Results Fecal colorectal cancer screen (FIT) (01/12/2020 8:00 AM CDT) Analysis Performed At Patho logist Time Signature Occult Blood Negative NEG^Negati 01/18/2020 [facility] FIT ve 4:19 PM CDT [facility] Specimen Anatomical Collection Method Collection Time Receive d Time (Source) Location / / Volume Laterality Stool specimen 01/12/2020 8:00 AM 020 1:16 (specimen) CDT PM CDT Noreen Hills APRN PATIENT'S LIBRARIAN LAB - STOOLS ORDERABLES Performing Organization Address City/State/ZIP Code Phon e Number [facility] [address] [place] [address] [facility] documented in this encounter Visit Diagnoses Diagnosis Health care maintenance Unspecified general medical examination documented in this encounter Additional Health Concerns Assessment Noted Time PHQ-9 Depression Total Score: 9 08/09/2019 7:03 AM COMBINATION SAW OPERATOR documented as of this encounter Care Teams Clay Processing Factory Worker Relationship Specialty Start Date End Date Noreen Hills PCP - General Nurse Practitioner 01/09/19 12/12/21 SEAN Haley PATIENT'S LIBRARIAN [address] [facility] [place] [address] Noreen Hills Assigned PCP 06/16/18 SEAN Haley PATIENT'S LIBRARIAN [address] [facility] [place] [id number] Kalyan Galvan Personal Advocate & 08/08/19 Liaison (PAL) Lashae Trevino Pharmacist Pharmacist 10/14/19 12/01/20 [facility] [address] [facility] [place] [id number] documented as of this encounter
--- OUTSIDE RECORDS SUMMARY | 2022-01-17 22:04 | XMS_ITS | Encounter Summary ---
:1965 Author Organization [place] Address [address] [place] [address] Care Team Providers Name Role Phone Noreen Hills APRN PROFESSOR OF PATHOLOGY Unavailable [phone] Noreen Hills APRN PROFESSOR OF PATHOLOGY Primary Care Provider [phone] Kalyan Galvan Unavailable Unavailable Lashae Trevino [facility] Unavailable [phone] Encounter Details Date Type Department Care Team Description 01/12/2020 Travel Social History Tobacco Use Types Packs/Day [...] How often do you attend sabianism or quaker Patient refused 08/08/2019 services? Do you belong [...] been in contact with No / Unsure 01/12/2020 3:23 PM CDT someone who was confirmed or suspected to have Coronavirus / COVID-19? documented as of this encounter Plan of Treatment Not on filedocumented as of this encounter Visit Diagnoses Not on filedocumented in this encounter Additional Health Concerns Assessment Noted Time PHQ-9 Depression Total Score: 9 08/09/2019 7:03 AM PRODUCT MANAGEMENT CONSULTANT documented as of this encounter Care Teams Neonatal Surgeon Relationship Specialty Start Date End Date Noreen Hills PCP - General Nurse Practitioner 01/09/19 12/12/21 SEAN Haley PROFESSOR OF PATHOLOGY [address] [facility] [address] [place], [place] [address] Noreen Hills PCP 06/16/18 SEAN Haley PROFESSOR OF PATHOLOGY [address] [facility] [place] [address] Kalyan Galvan Personal Advocate & 08/08/19 Liaison (PAL) Lashae Trevino Pharmacist Pharmacist 10/14/19 12/01/[facility] [address] [facility] [address] [place], [place] [address] documented as of this encounter
--- OUTSIDE RECORDS SUMMARY | 2022-01-17 22:04 | XMS_ITS | Encounter Summary ---
:1965 Author Organization [place] Address [address] [place] [address] Care Team Providers Name Role Phone Noreen Hills APRN SALVAGE WINDER Unavailable [phone] Noreen Hills APRN SALVAGE WINDER Primary Care Provider [phone] Kalyan Galvan Unavailable Unavailable Lashae Trevino [facility] Unavailable [phone] Reason for Referral Consultation (Routine) - Closed Specialty Diagnoses / Procedures Referred By Contact Refer red To Contact Diagnoses Pain of right thumb Ramin Romero MD 2019 [facility] 06 11 [place], [place] [phone] Referral ID Status Reason Start Date Expiration Date Visits Requ ested Visits Authorized [id number] Closed 01/02/2020 01/01/2021 1 1 iagnostic Imaging XR (Routine) - Closed Specialty Diagnoses / Procedures Referred By Contact Refer red To Contact Diagnoses Pain of right thumb Ramin Romero MD Procedures XR Finger Right G/E 2 Views 2019 [facility] [place], [place] [phone] Referral ID Status Reason Start Date Expiration Date Visits Requ ested Visits Authorized [id number] Closed 01/02/2020 01/01/2021 1 1 Reason for Visit Reason Comments Urgent Care Thumb Discomfort thumb pain that started 2 we eks ago- popping in and out of joint- thumb brace isnt helping Encounter Details Date Type Department Care Team Description [facility] of [facility] [place] 2019 E (Primary Dx) [address] [address] [place] [address] Social History Tobacco Use Types Packs/Day [...] How often do you attend zoroastrian or jehovah's witness Patient refused 08/08/2019 services? Do you belong [...] been in contact with No / Unsure 01/02/2020 10:31 AM CDT someone who was confirmed or suspected to have Coronavirus / COVID-19? documented as of this encounter Last Filed Vital Signs Vital Sign Reading Time Taken Comments Blood Pressure 131/72 01/02/2020 10:49 AM CDT Pulse 69 01/02/2020 10:49 AM CDT Temperature 36.8 ??C (98.2 ??F) 01/02/2020 10:49 AM CDT Respiratory Rate - - Oxygen Saturation 99% 01/02/2020 10:49 AM CDT Inhaled Oxygen Concentration - - Weight 81.2 kg (179 lb) 01/02/2020 10:49 AM CDT Height - - Body Mass Index 32.74 10/28/2019 11:02 AM CDT documented in this encounter Patient Instructions Patient InstructionsRamin Romero MD - 01/02/2020 10:50 AM CDT Continue wearing the right thumb splint. Place ice onto the painful areas of the right thumb. Rest the right thumb for now. follow up with an timber management specialist for further evaluation and treatment. documented in this encounter Progress Notes Ramin Romero MD - 01/02/2020 10:50 AM CDT SUBJECTIVE: Chief Complaint Patient presents with ??? Urgent Care ??? Thumb Discomfort thumb pain that started 2 weeks ago- popping in and out of joint- thumb brace isnt helping Megan Choi is a 54 year old right-handed female who presents with a chief complaint of severe pain at the right thumb (at the proximal phalanx and at the MCP joint and distal first metacarpal area). The first interphalangeal joint pops in and out when flexed with accompanying increased pain. Symptoms began two weeks ago, are gradually worsening. Context: Injury: No. Pain exacerbated by flexing the right thumb. Relieved by keeping the right thumb straight and still.She treated it initially with a thumb brace without any relief. This is the first time this type of injury has occurred to this patient. Past Medical History: Diagnosis Date ??? Aftercare following surgery of the musculoskeletal system 07/03/2016 ??? Arthritis ??? Diabetes mellitus (H) Type 2 ??? Dvt femoral (deep venous thrombosis) (H) 04/17 post surgical, stopped coumadin 01/16 ??? IFG (impaired fasting glucose) 10/03/2015 Current Outpatient Medications Medication Sig Dispense Refill ??? ASPIRIN PO Take 81 mg by mouth daily. ??? blood glucose (ACCU-CHEK JANICE) test strip 1 strip by In Vitro route 2 times daily 100 strip prn ??? blood glucose monitoring (ACCU-CHEK MULTICLIX) lancets Use to test blood sugar 2 times daily or as directed. 1 Box 11 ??? blood glucose monitoring (ONE TOUCH DELICA) lancets Use to test blood sugars 1 times daily or asdirected. 1 Box prn ??? DULoxetine (CYMBALTA) 30 MG capsule Take 1 capsule (30 mg) by mouth daily 90 capsule 1 ??? fluticasone (FLONASE) 50 MCG/ACT nasal spray Jackson 1-2 sprays into both nostrils daily 16 g 11 ??? loratadine-pseudoePHEDrine ([employer] ALLERGY RELIEF-D) 10-240 MG 24 hr tablet Take 1 tablet by mouth daily 90 tablet 3 ??? metFORMIN (GLUCOPHAGE) 500 MG tablet Take 2 tablets (1,000 mg) by mouth 2 times daily (with meals) TAKE 1 TABLET BY MOUTH TWICE A DAY WITH MEALS 180 tablet 3 ??? omeprazole (PRILOSEC) [address] capsule Take 2 capsules (40 mg) by mouth daily 180 capsule 3 ??? psyllium (METAMUCIL) 0.52 g capsule Take [...] BY MOUTH NIGHTLY AT BEDTIME NEEDED FOR SLEEP 60tablet 5 ? ? JAY/ARB NOT PRESCRIBED, INTENTIONAL, 1 each daily JAY & ARB not prescribed due to not needed(Patient not taking: Reported on 08/21/2017) ??? Acetaminophen (TYLENOL PO) Take 1,000 mg by mouth daily as needed for mild pain or fever ??? IBUPROFEN PO Take 800 mg by mouth daily as needed for moderate pain Social History Tobacco Use ??? Smoking status: Never Smoker ??? Smokeless tobacco: Never Used Substance Use Topics ??? Alcohol use: Yes Frequency: Monthly or less Drinks per session: 1 or 2 Binge frequency: Never Comment: Rare Patient has to use her right thumb a lot while working at [employer]. ROS: CONSTITUTIONAL:NEGATIVE for fever INTEGUMENTARY/SKIN: negative for bruising. MUSCULOSKELETAL: Positive for right thumb pain. NEURO: Negative for numbness/weakness. EXAM: BP 131/72 Pulse 69 Temp 98.2 ??F (36.8 ??C) (Tympanic) Wt 81.2 kg (179 lb) LMP 10/30/2011 SpO2 99% BMI 32.74 kg/m?? M/S Exam: right thumb has pain with palpation over the distal first metacarpal bone, over the first MCP joint, over the first proximal phalanx and over the interphalangeal joint. No edema/hematomas/ecchymosis. There is pain at these areas with flexion of the right thumb. X-RAY was done. I viewed all X-ray images during this clinic encounter: No acute fracture/dislocation/avulsions. ASSESSMENT: Right thumb pain. No fracture/acute avulsion/dislocations were seen on the X- rays. The history of the interphalangeal joint popping in and out suggests a possible tear at a ligament. PLAN: follow up with timber management specialist. I ordered an timber management specialist referral. Continue wearing the right thumb splint Place ice onto the right thumb Rest the right thumb as much as possible. Ramin Romero MD documented in this encounter Plan of Treatment Scheduled Referrals Name Type Priority Associated Diagnoses Order S chedule Orthopedic & Spine Referral Routine Pain of right thumb Ex pected: 01/09/2020 Veterinary Poultry Inspector Referral (Approxim ate), Expires: 2019 documented as of this encounter Results XR Finger Right G/E 2 Views (01/02/2020 11:32 AM CDT) Anatomical Region Laterality Modality Hand, Right Hand Right Computed Radiography Specimen (Source) Anatomical Location Collection Method / Collectio n Time Received Time / Laterality Volume Impressions 01/02/2020 11:50 AM CDT IMPRESSION: IP joint degenerative changes. No evidence of fracture or subluxation. THOMPSON BAEZ MD Narrative 01/02/2020 11:50 AM CDT XR FINGER RT G/E 2 VW 01/02/2020 11:32 AM HISTORY: Patient complains of atraumatic right thumb pain (distal first metatarsal area, first MCP joint, proximal phalanx and interphalangeal jointt). The interphalan geal has been popping in and out with flexion.; Pain of right thumb Procedure Note Thompson Baez MD - 01/02/2020Formatt ing of this note might be different from the original. XR FINGER RT G/E 2 VW 01/02/2020 11:32 AM HISTORY: Patient complains of atraumatic right thumb pain (distal first metatarsal area, first MCP joint, proximal phalanx and interphalangeal jointt). The interphalan geal has been popping in and out with flexion.; Pain of right thumb IMPRESSION: IP joint degenerative change s. No evidence of fracture or subluxation. THOMPSON BAEZ MD Ramin Romero MD IMG DIAGNOSTIC IMAGING ORDER ILDEFONSO documented in this encounter Visit Diagnoses Diagnosis Pain of right thumb - Primary Pain in limb Pain of right thumb Pain in limb documented in this encounter Additional Health Concerns Assessment Noted Time PHQ-9 Depression Total Score: 9 08/09/2019 7:03 AM SUPERINTENDENT CAR CONSTRUCTION documented as of this encounter Care Teams System Specialist Relationship Specialty Start Date End Date Noreen Hills PCP - General Nurse Practitioner 01/09/19 12/12/21 SEAN Haley SALVAGE WINDER [address] [facility] [place] [phone] Noreen Hills Assigned PCP 06/16/18 SEAN Haley SALVAGE WINDER [address] [facility] [place] [address] Kalyan Galvan Personal Advocate & 08/08/19 Liaison (PAL) Lashae Trevino Pharmacist Pharmacist 10/14/19 12/01/20 Kiran, [facility] [address] [facility] [place] [id number] documented as of this encounter
--- OUTSIDE RECORDS SUMMARY | 2022-01-17 22:04 | XMS_ITS | Encounter Summary ---
:1965 Author Organization [facility] Address [address] [place] [address] Care Team Providers Name Role Phone Noreen Hills APRN BOILER WATER TESTER Unavailable [phone] Noreen Hills APRN BOILER WATER TESTER Primary Care Provider [phone] Kalyan Galvan Unavailable Unavailable Lashae Trevino [facility] Unavailable [phone] Encounter Details Date Type Department Care Team Description 01/02/2020 Travel Social History Tobacco Use Types Packs/Day [...] often do you attend oriental orthodox or sikhism Patient refused 08/08/2019 services? Do [...] Depression Total Score: 9 08/09/2019 7:03 AM FINAL INSPECTOR PAPER documented as of this encounter Care Teams Contract Implementation Analyst Relationship Specialty Start Date End Date Noreen Hills PCP - General Nurse Practitioner 01/09/19 12/12/21 SEAN Haley BOILER WATER TESTER [address] [facility] [address] [place], [place] [address] Noreen Hills PCP 06/16/18 SEAN Haley BOILER WATER TESTER [address] [place] [address] Kalyan Galvan Personal Advocate & 08/08/19 Liaison (PAL) Lashae Trevino Pharmacist Pharmacist 10/14/19 [facility]/01/[facility] [address] [facility] [address] [place], [place] [address] documented as of this encounter
--- OUTSIDE RECORDS SUMMARY | 2022-01-17 22:04 | XMS_ITS | Encounter Summary ---
:1965 Author Organization [place] Address [address] [place] [address] Care Team Providers Name Role Phone Noreen Hills APRN FREEZER PERSON Unavailable [phone] Noreen Hills APRN FREEZER PERSON Primary Care Provider [phone] Kalyan Galvan Unavailable Unavailable Lashae Trevino [facility] Unavailable [phone] Encounter Details Date Type Department Care Team Description 01/09/2020 Travel Social History Tobacco Use Types Packs/Day [...] 08/08/2019 relatives? How often do you attend nondenominational or alevism Patient refused 08/08/2019 services? Do you belong to any clubs or organizations such as No 08/08/2019 nondenominational groups, unions, fraternal or athletic groups, or [...] been in contact with No / Unsure 01/09/2020 3:22 PM CDT someone who was confirmed or suspected to have Coronavirus / COVID-19? documented as of this encounter Plan of Treatment Not on filedocumented as of this encounter Visit Diagnoses Not on filedocumented in this encounter Additional Health Concerns Assessment Noted Time PHQ-9 Depression Total Score: 9 08/09/2019 7:03 AM WORKDAY MANAGER documented as of this encounter Care Teams In Store Banker Relationship Specialty Start Date End Date Noreen Hills PCP - General Nurse Practitioner 01/09/19 12/12/21 SEAN Haley FREEZER PERSON [address] [facility] [address] [place], [place] [address] Noreen Hills PCP 06/16/18 SEAN Haley FREEZER PERSON [address] [facility] [place] [address] Kalyan Galvan Personal Advocate & 08/08/19 Liaison (PAL) Lashae Trevino Pharmacist Pharmacist 10/14/19 12/01/[facility] [address] [facility] [address] [place], [place] [address] documented as of this encounter
--- OUTSIDE RECORDS SUMMARY | 2022-01-17 22:04 | XMS_ITS | Encounter Summary ---
:1965 Author Organization [place] Address [address] [place] [address] Care Team Providers Name Role Phone Noreen Hills APRN, CNP Unavailable [phone] Noreen Hills APRN, CNP Primary Care Provider [phone] Klayan Galvan Unavailable Unavailable Lashae Trevino [facility] Unavailable [phone] Reason for Visit Reason Onset Date Comments Forms 01/05/2020 Encounter Details Date Type Department Care Team Description 01/05/2020 Telephone [facility] Noreen Hills, Forms [place] ESTRADA LICENSED NUCLEAR CONTROL ROOM OPERATOR [address] [facility] [address] [facility] [address] [place] [address] [place] [address] [phone] Social History Tobacco Use Types Packs/Day Years [...] 08/08/2019 relatives? How often do you attend catholic or muslim Patient refused 08/08/2019 services? Do you belong to any clubs or organizations such as No 08/08/2019 catholic groups, unions, fraternal or athletic groups, or [...] this encounter Miscellaneous Notes Telephone Encounter - Elliot Donnelly MA - 01/09/2020 7:34 PM CDT Called and spoke to pt regarding to her work note. Dr. Romero wrote the letter and signed it. Inform pt that later is ready for pick at the front desk specialist. Pt will cotton picker the letter tomorrow. I told her theclinic is open from 9am-9pm. AUNG [place] on 01/09/2020 at 7:35 PM Telephone Encounter - Regan Romero MD - 01/09/2020 7:14 PM CDT I just typed and printed a work excuse note for the patient on January 09, 2020, at around 7:15 pm.. Please notify patient that the letter is ready for pick-up. Regan Romero MD Telephone Encounter - Elliot Donnelly MA - 01/09/2020 9:[address] Romero can you please address this since you last saw pt. In your note there was nothing that mention about missing work or work restriction. AUNG [place] on 01/09/2020 at 9:35 AM Telephone Encounter - Elliot Donnelly MA - 01/06/2020 2:36 PM CDT Left a detail msg for pt regarding to her letter request from Dr. Romero. I explained that Dr. Romero will not be in until the end of this week on 01/08. Will follow up with Dr. Romero and contact ptregarding to the letter. AUNG [place] on 01/06/2020 at 2:37 PM Telephone Encounter - Rosangela Ceron MA - 01/06/2020 11:10 AM CDT I left a message for patient to return call. I reviewed patient's chart and it looks like she is scheduled with ortho on 01/12/2020. EVELYN ROBERTSON MA on 01/06/2020 at 11:11 AM Telephone Encounter - Ashli Tamez MD - 01/06/2020 9:13 AM CDT Please let this patient know that Dr. Romero isn't back in clinic until 01/08 and that this letter might need to wait until he returns. Please find out what she wants the letter to say. Since there is notdocumentation in the visit note saying that she needs to be off work until seen by ortho or similar as well as no acute injury seen on x-ray, we need more information. Please also find out when her ortho follow up visit is scheduled. Telephone Encounter - Elliot Donnelly MA - 01/05/2020 4:50 PM CDT There was nothing in Dr. Romero's note indicating about work excuse notes. But this is his care of plan for pt. ASSESSMENT: Right thumb pain. No fracture/acute avulsion/dislocations were seen on the X- rays. The history of the interphalangeal joint popping in and out suggests a possible tear at a ligament. ?? PLAN: follow up with management specialist. I ordered an management specialist referral. Continue wearing the right thumb splint Place ice onto the right thumb Rest the right thumb as much as possible. ?? MD Elliot Pascual RMA on 01/05/2020 at 4:51 PM Telephone Encounter - Kiya Gleason - 01/05/2020 10:21 AM CDT Forms/Letter Request Name of form/letter: Work excuse letter Have you been seen for this request: Yes regan Romero EA Do we have the form/letter: No When is form/letter needed by: ALLEN How would you like the form/letter returned: Aoc Aadc Operations Staff Officer Patient Notified form requests are processed in 3-5 business days:Yes Okay to leave a detailed message? Yes Home number on file [phone] (home) Please reach out to pt when ready Kiya Gleason on 01/05/2020 at 10:25 AM documented in this encounter Plan of Treatment Not on filedocumented as of this encounter Visit Diagnoses Not on filedocumented in this encounter Additional Health Concerns Assessment Noted Time PHQ-9 Depression Total Score: 9 08/09/2019 7:03 AM TRASH HAULER documented as of this encounter Care Teams Database Management Specialist Relationship Specialty Start Date End Date Noreen Hills PCP - General Nurse Practitioner 01/09/19 12/12/21 SEAN Haley LICENSED NUCLEAR CONTROL ROOM OPERATOR [address] [facility] [place] [phone] Noreen Hills Assigned PCP 06/16/18 SEAN Haley LICENSED NUCLEAR CONTROL ROOM OPERATOR [address] [facility] [place] [address] Kalyan Galvan Personal Advocate & 08/08/19 Liaison (PAL) Lashae Trevino Pharmacist Pharmacist 10/14/19 12/01/20 CLAUDIA Beck [address] [place] [address] documented as of this encounter
--- OUTSIDE RECORDS SUMMARY | 2022-01-17 22:04 | XMS_ITS | Encounter Summary ---
:1965 Author Organization [place] Address [address] [place] [address] Care Team Providers Name Role Phone Noreen Hills APRN ETHNOGRAPHER Unavailable [phone] Noreen Hills APRN ETHNOGRAPHER Primary Care Provider [phone] Kalyan Galvan Unavailable Unavailable Lashae Trevino [facility] Unavailable [phone] Encounter Details Date Type Department Care Team Description 01/13/2020 Orders Only [facility] Typ e 2 diabetes mellitus [place] [facility] with complication, without [address] [facility] ng-term current use of Drive insulin (H) [address] [place] [address] Social History Tobacco Use Types Packs/Day [...] How often do you attend worship or sabianism Patient refused 08/08/2019 services? Do you belong to any clubs or organizations such as No 08/08/2019 worship groups, unions, fraternal or athletic groups, or [...] Name Priority Date/Time Associated Diagnosis Comme nts HEMOGLOBIN A1C Routine 01/13/2020 8:55 AM Type 2 diabetes Resu lts for this CDT mellitus with procedure are in the complication, without result s section. long-term current use of insulin (H) documented in this encounter Results (ABNORMAL) A1C FUTURE 1yr (01/13/2020 8:55 AM CDT) P athologist Signature Hemoglobin A1C 6.1 (H) 0 - 5.6 % 01/13/2020 [place] 9:[address] [facility] Comment: Normal <5.7% Prediabetes 5.7-6.4% ??Diab etes 6.5% or higher - adopted from ADA consensus guidelines. Specimen Anatomical Collection Method Collection Time Receive d Time (Source) Location / / Volume Laterality Blood specimen 01/13/2020 8:55 AM 020 8:56 (specimen) CDT AM CDT Noreen Hills APRN ETHNOGRAPHER LAB - BLOOD ORDERABLES Performing Organization Address City/State/ZIP Code Phon e Number [facility] 14[address] [facility] [place] [address] documented in this encounter Visit Diagnoses Diagnosis Type 2 diabetes mellitus with complicati on, without long-term current use of insulin (H) documented in this encounter Additional Health Concerns Assessment Noted Time PHQ-9 Depression Total Score: 9 08/09/2019 7:03 AM PLATE MILL HAND documented as of this encounter Care Teams Boom Stick Man Relationship Specialty Start Date End Date Noreen Hills PCP - General Nurse Practitioner 01/09/19 12/12/21 SEAN Haley ETHNOGRAPHER [address] [facility] [place] [address] Noreen Hills Assigned PCP 06/16/18 SEAN Haley ETHNOGRAPHER [address] [facility] [place] [address] Kalyan Galvan Personal Advocate & 08/08/19 Liaison (PAL) Lashae Trevino Pharmacist Pharmacist 10/14/19 12/01/20 [facility] [address] [facility] [place] [address] documented as of this encounter
--- OUTSIDE RECORDS SUMMARY | 2022-01-17 22:04 | XMS_ITS | Encounter Summary ---
:1965 Author Organization [place] Address [address] [place] [address] Care Team Providers Name Role Phone Noreen Hills APRN ELECTRIC RANGE SERVICER Unavailable [phone] Noreen Hills APRN ELECTRIC RANGE SERVICER Primary Care Provider [phone] Kalyan Galvan Unavailable Unavailable Lashae Trevino [facility] Unavailable [phone] Reason for Visit Diagnostic Imaging XR (Routine) - Closed Specialty Diagnoses / Procedures Referred By Contact Refer red To Contact Diagnoses Pain of right thumb Ramin Romero MD Procedures XR Finger Right G/E 2 Views [address] [phone] Referral ID Status Reason Start Date Expiration Date Visits Requ ested Visits Authorized [id number] Closed 01/02/2020 01/01/2021 1 1 Encounter Details Date Type Department Care Team Description 01/02/2020 Ancillary Procedure [facility] Ramin Romero Pai n of right thumb Clinic [place] [address] [place] [address] [place] [address] [address] [place] [address] [place] [address] Social History Tobacco Use Types Packs/Day Years [...] 08/08/2019 relatives? How often do you attend zoroastrianism or moravian Patient refused 08/08/2019 services? Do you belong to any clubs or organizations such as No 08/08/2019 zoroastrianism groups, Jiahes, Upplication or athletic groups, or school groups? How [...] Name Priority Date/Time Associated Diagnosis Comme nts XR FINGER RIGHT G/E Routine 01/02/2020 11:32 AM Pain of right thumb Results for this 2 VIEWS CDT procedure are i n the results section. documented in this encounter Results XR Finger Right G/E [...] Visit Diagnoses Diagnosis Pain of right thumb Pain in limb documented in this encounter Additional Health Concerns Assessment Noted Time PHQ-9 Depression Total Score: 9 08/09/2019 7:03 AM TRACK SURFACING MACHINE OPERATOR documented as of this encounter Care Teams Pcb Designer Relationship Specialty Start Date End Date Noreen Hills PCP - General Nurse Practitioner 01/09/19 12/12/21 SEAN Haley ELECTRIC RANGE SERVICER [address] [facility] [address] [place], [place] [phone] Noreen Hills Assigned PCP 06/16/18 SEAN Haley ELECTRIC RANGE SERVICER [address] [facility] [place] [phone] Kalyan Galvan Personal Advocate & 08/08/19 Liaison (PAL) Lashae Trevino Pharmacist Pharmacist 10/14/19 12/01/20 Kiran, [facility] [address] [facility] [address] [place], [place] [phone] documented as of this encounter
--- OUTSIDE RECORDS SUMMARY | 2022-01-17 22:05 | XMS_ITS | Encounter Summary ---
:1965 Author Organization [facility] Address [address] [place] [id number] Care Team Providers Name Role Phone Noreen Hills APRN SPAR MACHINE OPERATOR Unavailable [phone] Noreen Hills APRN SPAR MACHINE OPERATOR Primary Care Provider [phone] Kalyan Galvan Unavailable Unavailable Lashae Trevino [facility] Unavailable [phone] Reason for Visit Reason Comments Medication Refill Encounter Details Date Type Department Care Team Description 12/10/2019 Refill [facility] Noreen Hills, Medication Refill Pino ESTRADA SPAR MACHINE OPERATOR [address] [facility] [address] [place] [address] [address] [place] [address] [place] [address] [phone] Social History Tobacco Use Types Packs/Day Years [...] 08/08/2019 relatives? How often do you attend methodist or protestant Patient refused 08/08/2019 services? Do you belong to any clubs or organizations such as No 08/08/2019 methodist groups, unions, fraternal or athletic groups, or [...] month, have you been in contact with Yes 11/11/2019 3:21 PM CDT someone who was confirmed or suspected to have Coronavirus / COVID-19? documented as of this encounter Plan of Treatment Not on filedocumented as of this encounter Visit Diagnoses Diagnosis Chronic seasonal allergic rhinitis documented in this encounter Additional Health Concerns Assessment Noted Time PHQ-9 Depression Total Score: 9 08/09/2019 7:03 AM CRIPPLE WORKER documented as of this encounter Care Teams Rn Recruitment Relationship Specialty Start Date End Date Noreen Hills PCP - General Nurse Practitioner 01/09/19 12/12/21 SEAN Haley SPAR MACHINE OPERATOR [address] [facility] [place] [address] Noreen Hills Assigned PCP 06/16/18 SEAN Haley SPAR MACHINE OPERATOR [address] [facility] [place] [id number] Kalyan Galvan Personal Advocate & 08/08/19 Liaison (PAL) Lashae Trevino Pharmacist Pharmacist 10/14/19 12/01/20 Kiran [facility] [address] [facility] [place] [address] documented as of this encounter
--- OUTSIDE RECORDS SUMMARY | 2022-01-17 22:05 | XMS_ITS | Encounter Summary ---
:1965 Author Organization [facility] Address [address] [place] [address] Care Team Providers Name Role Phone Noreen Hills APRN CORE LAYER MACHINE OPERATOR Unavailable [phone] Noreen Hills APRN CORE LAYER MACHINE OPERATOR Primary Care Provider [phone] Kalyan Galvan Unavailable Unavailable Lashae Trevino [facility] Unavailable [phone] Encounter Details Date Type Department Care Team Description 11/06/2019 Travel Social History Tobacco Use Types Packs/Day [...] 08/08/2019 relatives? How often do you attend jainism or orthodoxy Patient refused 08/08/2019 services? Do you belong to any clubs or organizations such as No 08/08/2019 jainism groups, unions, fraternal or athletic groups, or [...] been in contact with No / Unsure 11/06/2019 6:11 PM CDT someone who was confirmed or suspected to have Coronavirus / COVID-19? documented as of this encounter Plan of Treatment Not on filedocumented as of this encounter Visit Diagnoses Not on filedocumented in this encounter Additional Health Concerns Assessment Noted Time PHQ-9 Depression Total Score: 9 08/09/2019 7:03 AM BRICKMASON SUPERVISOR documented as of this encounter Care Teams Casino Manager Relationship Specialty Start Date End Date Noreen Hills PCP - General Nurse Practitioner 01/09/19 12/12/21 SEAN Haley CORE LAYER MACHINE OPERATOR [address] [facility] [address] [place], [place] [address] Noreen Hills PCP 06/16/18 SEAN Haley CORE LAYER MACHINE OPERATOR [address] [facility] [place] [address] Kalyan Galvan Personal Advocate & 08/08/19 Liaison (PAL) Lashae Trevino Pharmacist Pharmacist 10/14/19 12/01/[facility] [address] [place], [place] [address] documented as of this encounter
--- OUTSIDE RECORDS SUMMARY | 2022-01-17 22:05 | XMS_ITS | Encounter Summary ---
:1965 Author Organization [facility] Address [address] [place] [address] Care Team Providers Name Role Phone Noreen Hills APRN PRESIDENT AND CHIEF OPERATING OFFICER Unavailable [phone] Noreen Hills APRN PRESIDENT AND CHIEF OPERATING OFFICER Primary Care Provider [phone] Kalyan Galvan Unavailable Unavailable Lashae Trevino [facility] Unavailable [phone] Reason for Visit Reason Onset Date Comments Chest Pain 11/06/2019 Encounter Details Date Type Department Care Team Description 11/06/2019 Telephone [facility] Noreen Hills istine, Chest Pain Pino ESTRADA PRESIDENT AND CHIEF OPERATING OFFICER [address] [facility] [address] [place] [address] [address] [place] [address] [place] [address] [phone] Social History Tobacco Use Types Packs/Day Years [...] How often do you attend shinto or yazidi Patient refused 08/08/2019 services? Do you belong [...] been in contact with No / Unsure 10/21/2019 3:37 PM CDT someone who was confirmed or suspected to have Coronavirus / COVID-19? documented as of this encounter Miscellaneous Notes Telephone Encounter - Agus Beltran RN - 11/06/2019 5:17 PM CDT Spoke with patient. Knifing pain in the chest. Below the sternum. Started this morning. Horrible pain in the chest for 5-6 minutes that radiated to the back. Pain has improved, but has not gone away completely today. 8/10 chest pain for 5-6 minutes per episode. Has happened twice today. Difficulty breathing occurs with each episode of chest pain. Between episodes of chest pain, breathing is normal. Denies having chest pain like this in the past few weeks. Denies cough. Denies fever. Denies history of heart issues. Denies chest pain associated with activity. Denies chest injury. Advised patient to have someone drive her to the Emergency Department immediately. Patient verbalized agreement, will have someone bring her to the hospital immediately. Agus Beltran RN on 11/06/2019 at 5:29 PM Telephone Encounter - Slime Mustafa - 11/06/2019 5:13 PM CDT Symptoms Describe your symptoms: pain in breast bone, tightness in chest - sharp knife pain; felt off over last few days Any pain: Yes: in chest, feels like it comes on strong How long have you been having symptoms: this AM days Have you been seen for this: No Appointment offered?: No Triage offered?: Yes: Red Flag - Asking to speak with RN to determine if should be seen Home remedies tried: took IBP AM Requested Pharmacy: [facility] [id number] [place] [address] Okay to leave a detailed message? Yes at Cell number on file: Telephone Information: documented in this encounter Plan of Treatment Not on filedocumented as of this encounter Visit Diagnoses Not on filedocumented in this encounter Additional Health Concerns Assessment Noted Time PHQ-9 Depression Total Score: 9 08/09/2019 7:03 AM CHRISTIAN SCIENCE NURSE documented as of this encounter Care Teams Fleet Dispatch Manager Relationship Specialty Start Date End Date Noreen Hills PCP - General Nurse Practitioner 01/09/19 12/12/21 SEAN Haley PRESIDENT AND CHIEF OPERATING OFFICER [address] [facility] [place] [id number] Noreen Hills PCP 06/16/18 SEAN Haley PRESIDENT AND CHIEF OPERATING OFFICER [address] [facility] [place] [address] Kalyan Galvan Personal Advocate & 08/08/19 Liaison (PAL) Lashae Trevino Pharmacist Pharmacist 10/14/19 12/01/[facility] [address] [facility] [place] [address] documented as of this encounter
--- OUTSIDE RECORDS SUMMARY | 2022-01-17 22:05 | XMS_ITS | Encounter Summary ---
:1965 Author Organization [place] Address [address] [place] [id number] Care Team Providers Name Role Phone Pankaj Hills APRN AIDS COUNSELOR Unavailable [phone] Pankaj Hills APRN AIDS COUNSELOR Primary Care Provider [phone] Kalyan Galvan Unavailable Unavailable Lashae Trevino [facility] Unavailable [phone] Reason for Visit Reason Comments Chest Pain Encounter Details Date Type Department Care Team Description 11/06/2019 Emergency [facility] Kera Bernard MD Chest pain, unspecified type; [facility] Emergency Dep t EMERGENCY PHYSICIANS Family history of VA (myocar dial infarction) [address] [employer] [place] [employer] [place] [address] [facility] [id number] [place], [place] [phone] (Wo rk) Social History Tobacco Use Types [...] 08/08/2019 relatives? How often do you attend yazdanism or presybeterian Patient refused 08/08/2019 services? Do you belong to any clubs or organizations such as No 08/08/2019 yazdanism groups, unions, fraternal or athletic groups, or [...] Sign Reading Time Taken Comments Blood Pressure 130/84 11/06/2019 6:13 PM CDT Pulse 96 11/06/2019 6:13 PM CDT Temperature 36.3 ??C (97.4 ??F) 11/06/2019 6:13 PM CDT Respiratory Rate 16 11/06/2019 6:13 PM CDT Oxygen Saturation 98% 11/06/2019 6:13 PM CDT Inhaled Oxygen Concentration - - Weight 83 kg (183 lb) 11/06/2019 6:14 PM CDT Height - - Body Mass Index 33.47 10/28/2019 11:02 AM CDT documented in this encounter Discharge Instructions Discharge InstructionsKera Bernard MD - 11/06/2019 10:42 PM CDT Continue daily omeprazole. Avoid greasy or spicy foods, caffeine, chocolate, NSAIDs, alcohol, cigarettes, or any other foods you notice worsen your symptoms. Make sure you are eating several hours before you lay flat for bed. I have ordered a stress test. You will be called to arrange this. Please follow-up closely with your primary care provider regarding your symptoms, ER visit, and results of stress test. Return immediately with worsening or change of pain or development of any new symptoms. AttachmentsThe following attachments cannot be sent through Care Everywhere. Chest Pain, Uncertain Cause (Zimbabwean)documented in this encounter Medications at Time of Discharge Medication Sig Dispensed Refills Start Date End Date JAY/ARB NOT PRESCRIBED, 1 each daily JAY & 0 04/11 INTENTIONAL,Indications: ARB not prescribed Type 2 diabetes, HbA1c due to not needed goal < 7% (H), Hypertension goal BP (blood pressure) < 130/80 Acetaminophen (TYLENOL Take 1,000 mg by 0 PO) mouth daily as needed for mild pain or fever ASPIRIN PO Take 81 mg by mouth 0 daily. blood glucose (ACCU-CHEK 1 strip by In Vitro 100 strip 0 JANICE) test route 2 times daily stripIndications: Type 2 diabetes, HbA1c goal < 7% (H) fluticasone (FLONASE) 50 [place]rona 1-2 sprays 16 g 11 08/08 MCG/ACT nasal into both nostrils sprayIndications: daily Allergic rhinitis, unspecified seasonality, unspecified trigger IBUPROFEN PO Take 800 mg by 0 mouth daily as needed for moderate pain simvastatin (ZOCOR) 20 Take 1 tab daily 90 tablet 3 020 MG tabletIndications: Hyperlipidemia LDL goal <100, Type 2 diabetes mellitus with complication, without long-term current use of insulin (H) blood glucose monitoring Use to test blood 1 Box 11 04/1206/16/2020 (ACCU-CHEK MULTICLIX) sugar 2 times daily lancetsIndications: Type or as directed. 2 diabetes, HbA1c goal < 7% (H) blood glucose monitoring Use to test blood 1 Box 09/1006/16/2020 (ONE TOUCH DELICA) sugars 1 times lancetsIndications: Type daily or as 2 diabetes, HbA1c goal < directed. 7% (H) DULoxetine (CYMBALTA) 30 Take 1 capsule (30 90 capsule 1 09/201902/05/2020 MG capsuleIndications: mg) by mouth daily Fibromyalgia loratadine (CLARITIN) 10 Take 10 mg by mouth 0 12/23/2019 MG tablet daily metFORMIN (GLUCOPHAGE) Take 2 tablets 180 tablet 3 0 06/18/2020 500 MG (1,000 mg) by mouth tabletIndications: Type 2 times daily (with 2 diabetes mellitus with meals) TAKE 1 complication, without TABLET BY MOUTH long-term current use of TWICE A DAY WITH insulin (H) MEALS omeprazole (PRILOSEC) 20 Take 2 capsules (40 180 capsule 3 0 08/08/2019 06/16/[address] mg) by mouth daily capsuleIndications: Gastroesophageal reflux disease without esophagitis psyllium (METAMUCIL) Take 1-2 capsules 200 capsule 3 020 11/10/2020 0.52 g by mouth daily Each capsuleIndications: capsule should be Constipation, administered unspecified constipation individually with 8 type ounces of fluid. SUMAtriptan (IMITREX) 50 Take 1-2 tablets 18 tablet 3 10/2711/10/2020 MG tabletIndications: (50-100 mg) by Migraine without status mouth at onset of migrainosus, not headache for intractable, unspecified migraine TAKE 1 TO migraine type 2 TABLETS BY MOUTH ONCE FOR MIGRAINE. OK TO REPEAT X 1 AFTER 2HOURS. Max 100mg dose at one time. Max 200mg in a day. MAX 12TAB/25DAYS INS topiramate (TOPAMAX) 50 Take 1 tablet (50 180 tablet 3 09/2910/11/2020 MG tabletIndications: mg) by mouth 2 Migraine without status times daily Take 1 migrainosus, not tab by mouth 2 intractable, unspecified times daily migraine type, Morbid obesity (H) vitamin D3 Take 1 tablet by 0 11/11/19 21 (CHOLECALCIFEROL) 2000 mouth 2 times daily units (50 mcg) tablet zolpidem (AMBIEN) 5 MG TAKE ONE TABLET BY 60 tablet 5 08/0803/08/2020 tabletIndications: MOUTH NIGHTLY AT Persistent insomnia BEDTIME NEEDED FOR SLEEP documented as of this encounter ED Notes Tanisha Alejandro. RERE Coto - 11/06/2019 8:23 PM CDT Pt rounding done, pt reports no change in sx following med adm. Reports feeling 1/10 chest discomfort that she describes as being like a bruise feeling. Pt updated on plan of care and status. Denies needing anything at this time. Debi Mcgrath RN - 11/06/2019 6:13 PM CDT Arrives with mid sternal chest pain that occurred this morning and then recurred this evening with radiation into her right arm area. Also states she had some tingling in her hands. Alert and oriented,ABCs intact. Kera Bernard MD - 11/06/2019 6:06 PM CDT History Chief Complaint: Chest Pain The history is provided by the patient. Megan Wong is a 54 year old female, with a history of type 2 diabetes, DVT not currently anticoagulated, and fibromyalgia who presents for evaluation of chest pain. Megan reports she woke updue to chest pain this morning 12 hours prior to arrival. She took 4 ibuprofen and the pain resolvedafter a total of 5-6 minutes. Megan notes she was controlling her breathing in order to not become anxious and hyperventilate but she denies shortness of breath. A sensation of her chest being bruised has persisted throughout the day. However, 2 hours prior to arrival she had recurrent sharp, 8.5/10, pain like a knife was shoved straight through to my back which prompted her concern. She notedthe pain radiated towards her right chest and arm. Overall her pain has improved to 5-6/10 in intensity at this time. She has had no fever, nausea, vomiting, diarrhea, or recent travel or surgery. She did not eat breakfast this morning and had 2 [employer] cheeseburgers this afternoon. She does take 40mg omeprazole but has not taken any of her medications today due to feeling fatigued. She denies personal history of cardiac disease and does not take estrogens. Megan states her father had a myocardial infarction in his 50's. Her brother had a myocardial infarction in his late 50s as well. She last had a stress test in 2017 (as below). NM Lexiscan Stress Test, 10/17/2016 Impression 1. Myocardial perfusion imaging using single isotope technique demonstrated no significant perfusion defect consistent with significant ischemia or infarct. There is mild decrease in anterior activity on rest and stress images consistent with soft tissue/breast attenuation artifact. 2. Gated images demonstrated small left ventricle with vigorous overall contractility and no significant regional wall motion abnormality. The left ventricular systolic function is hyperdynamic with ejection fraction 71%. 3. Compared to the prior study from not applicable . MARRY TRACEY MD Allergies: Erythromycin: rash Medications: Aspirin 81mg Cymbalta Metformin Omeprazole Simvastatin Imitrex Topiramate Vitamin D3 Ambien Past Medical History: Arthritis Type 2 DM Vulvar dystrophy Anxiety Heart murmur Skin neoplasm Solar lentiginosis DVT, femoral Fibromyalgia Depression Migraines GERD Insomnia Past Surgical History: Lumbar fusion, L5-S1 x2 Cervical fusion, C5-C7 T&A Left peritoneal tendon repair Family History: VA age 71, type 2 DM, HTN, lipids, osteoarthritis, kidney disease: mother VA s/p CABG, HTN, diabetes, lipids: father Lipids, diabetes, HTN: sister Lipids, HTN, diabetes, kidney disease: brother Social History: Smoking status: Never smoker Substance use: No Alcohol use: Rarely Presents to ED alone Marital Status: Review of Systems Constitutional: Positive for fatigue. Negative for fever. Respiratory: Negative for shortness of breath. Cardiovascular: Positive for chest pain. Gastrointestinal: Negative for diarrhea, nausea and vomiting. All other systems reviewed and are negative. Physical Exam Patient Vitals for the past 24 hrs: BP Temp Temp src Pulse Resp SpO2 Weight 11/06/19 1814 -- -- -- -- -- -- 83 kg (183 lb) 11/06/19 1813 130/84 97.4 ??F (36.3 ??C) Oral 96 16 98 % -- Physical Exam General: Well-developed and well-nourished. Well appearing middle aged woman. Cooperative. Head: Atraumatic. Eyes: Conjunctivae, lids, and sclerae are normal. ENT: Normal nose. Moist mucous membranes. Neck: Supple. Normal range of motion. CV: Regular rate and rhythm. Normal heart sounds with no murmurs, rubs, or gallops detected. Resp: No respiratory distress. Clear to auscultation bilaterally without decreased breath sounds, wheezing, rales, or rhonchi. GI: Soft. Non-distended. Mild epigastric tenderness. No right upper quadrant tenderness. MS: Normal ROM. No bilateral lower extremity edema or calf tenderness. Skin: Warm. Non-diaphoretic. No pallor. Neuro: Awake. A&Ox3. Normal strength. Psych: Normal mood and affect. Normal speech. Vitals reviewed. Emergency Department Course EKG Indication: Chest pain Time: 18:19:30 Rate 70 bpm. SD interval 174. QRS duration 96. QT/QTc 394/425. Normal sinus rhythm. Left axis deviation. Incomplete right bundle branch block. Abnormal ECG. No acute ST changes. No significant change as compared to prior, dated 06/01/16. Imaging: Radiographic findings were communicated with Megan who voiced understanding of the findings. XR Chest 2 Views IMPRESSION: Negative chest. Postsurgical change in the lower cervical spine. As read by Radiology. Laboratory: Laboratory findings were communicated with Megan who voiced understanding of the findings. Troponin I now (1827): <0.015 D dimer: 0.5 Lipase: 66(L) Hepatic panel: Alkphos 157(H), o/w WNL CBC: o/w WNL (WBC 7.2, HGB 14.8, PLT 259) BMP: Glucose 129(H), o/w WNL (Creatinine 0.82) Interventions: 1926: Aspirin 324mg PO 1926: Pepcid 20mg IV 1928: GI Cocktail - Mylanta/Maalox 15 mL, Viscous Lidocaine 2% 15 mL, 30 mLs PO Emergency Department Course: The patient was placed on continuous cardiac monitoring and pulse oximetry. 1818: EKG obtained in the ED, see results above. 1827: IV was inserted and blood was drawn for laboratory testing, results above. Past medical records, nursing notes, and vitals reviewed. 1900: I performed an exam as documented above. Megan was sent for a chest x-ray while in the emergency department, results above. 2057: I rechecked and discussed the results of her workup thus far. Megan notes her pain is getting somewhat stronger. Findings and plan explained to Megan. Discharged home with instructions regarding supportive care, medications, and reasons to return. The importance of close follow-up was reviewed. I personally reviewed the laboratory results with Megan and answered all related questions prior to discharge. HEART Score Background Calculates the overall risk of adverse event in patient's presenting with chest pain. Based on 5 criteria (each assigned 0-2 points) including suspiciousness of history, EKG, age, risk factors and troponin. Data 54 year old female Migraine headache; GERD (gastroesophageal reflux disease); Family history of VA (myocardial infarction); Persistent insomnia; Type 2 diabetes mellitus with complication, without long-term current use of insulin (H); Hyperlipidemia LDL goal <100; Allergic rhinitis, unspecified seasonality, unspecified trigger; Vulvar dystrophy; Major depressive disorder, recurrent (H); Fibromyalgia; Anxiety; History of lumbar fusion; History of fusion of cervical spine; Heart murmur; Neoplasm of uncertain behaviorof skin; Solar lentiginosis; Morbid obesity (H); Dry mouth; Pain of left lower leg; Constipation, unspecified constipation type; Snoring; and Vitamin D deficiency Reports that she has never smoked. She has never used smokeless tobacco. family history includes Arthritis in her mother; Cardiovascular in her father, mother, paternal grandfather, and paternal grandmother; Diabetes in her brother, father, maternal grandfather, maternal grandmother, mother, paternal grandfather, paternal grandmother, sister, and sister; Hypertension in her brother, father, maternal grandfather, maternal grandmother, mother, paternal grandfather, paternalgrandmother, sister, and sister; Kidney Disease (age of onset: 55) in her brother; Kidney Disease (age of onset: 70) in her mother; Lipids in her brother, father, maternal grandfather, maternal grandmother, mother, paternal grandfather, paternal grandmother, sister, and sister. Lab Results Component Value Date TROPI <0.015 11/06/2019 Criteria 0-2 points for each of 5 items (maximum of 10 points): Score 0- History slightly suspicious for coronary syndrome Score 0- EKG Normal Score 1- Age 45 to 65 years old Score 2- Three or more risk factors for or history of atherosclerotic disease Score 0- Within normal limits for troponin levels Interpretation Risk of adverse outcome Heart Score: 3 Total Score 0-3- Adverse Outcome Risk 2.5% - Supports early discharge with appropriate follow-up Impression & Plan Medical Decision Making: Megan is a 54-year-old woman who woke up with chest pain this morning. She states it lasted about5 minutes and then resolved, although she had a residual feeling like a bruise in her chest. When she had another episode of more severe pain this evening, she sought care. Fortunately, she appears well on exam. She does have some mild epigastric tenderness and tells me she had [employer] for lunch. Isuspect GERD/gastritis is playing a role in her pain, although Megan seems to feel this is not the issue. Fortunately, EKG is reassuring without acute ST changes or arrhythmias, and troponin is undetectable. Because this episode of pain started at least 2 hours prior to arrival, this essentially rul es out ACS. D-dimer is negative essentially ruling out pulmonary embolism as well. Her other laboratory studies are noncontributory without evidence of pancreatitis, hepatitis, or biliary obstruction that could be contributing to her pain. Indeed, she has no right upper quadrant tenderness and biliary pathology is considered unlikely. Imaging of the abdomen is not indicated, and chest x-ray does not reveal alternate cause for her pain such as pneumonia or pneumothorax. Her mediastinum is normal and narrow, and I doubt aortic pathology. She was given Pepcid, aspirin, and a GI cocktail and on repeat e valuation states she does feel the pain is actually becoming a little stronger. However, at this time there is no evidence of an acute emergent pathology that would require further work-up or hospitalization. My strong suspicion is this is related to acid reflux particularly as she has epigastric tenderness and ate [employer] for lunch without her usual omeprazole. I have recommended she continue daily omeprazole and we discussed dietary modifications and lifestyle changes to help with GERD. However, she does have a HEART score of 3 and a strong family history of coronary artery disease with her brother and father having issues in his 50s. I have recommended outpatient stress test and Megan is comfortable with this. She understands she will be called to arrange this, and she needs to follow-upclosely with her primary care provider regarding any ongoing symptoms, ER visit, and the results of the stress test. She also understands she needs to return immediately if she has worsening or change of pain or development of new concerns. All questions answered. Amenable to discharge. Diagnosis: ICD-10-CM 1. Chest pain, unspecified type R07.9 Echo Stress Echocardiogram 2. Family history of VA (myocardial infarction) Z82.49 Echo Stress Echocardiogram Disposition: Discharged home Kallie Garcia 11/06/2019 [facility] Scribe Disclosure: I, Kallie Garcia, am serving as a scribe at 7:01 PM on 11/06/2019 to document services personally performed by Kera Bernard MD based on my observations and the provider's statements to me. Kera Bernard MD 11/10/19 1241 documented in this encounter Plan of Treatment Not on filedocumented as of this encounter Procedures Procedure Name Priority Date/Time Associated Comments Diagnosis XR CHEST 2 VIEWS STAT 11/06/2019 8:04 PM Resul ts for this CDT procedure are i n the results section. CBC WITH PLATELETS & STAT 11/06/2019 6:28 PM R esults for this DIFFERENTIAL CDT procedure are i n the results section. TROPONIN I STAT 11/06/2019 6:28 PM Results f or this CDT procedure are i n the results section. LIPASE Routine 11/06/2019 6:28 PM Results f or this CDT procedure are i n the results section. HEPATIC FUNCTION Routine 11/06/2019 6:28 PM Resul ts for this PANEL CDT procedure are i n the results section. D DIMER QUANTITATIVE Routine 11/06/2019 6:28 PM R esults for this CDT procedure are i n the results section. BASIC METABOLIC PANEL STAT 11/06/2019 6:28 PM Results for this CDT procedure are i n the results section. EKG 12-LEAD, TRACING STAT 11/06/2019 6:19 PM R esults for this ONLY CDT procedure are i n the results section. documented in this encounter Results ECHO EXERCISE STRESS TEST WITH CONTRAST (12/16/2019 9:43 AM CDT) Anatomical Region Laterality Modality Echocardiography Specimen (Source) Anatomical Collection Method Collection Time Re ceived Time Location / / Volume Laterality 12/16/2019 9:06 AM CDT Narrative 12/16/2019 12:34 PM CDT [id number]^QASIM^KERA^S [facility] [address] [place] [address] Name: MEGAN WONG : 1965 Study Date: 12/16/2019 09:06 AM Age: 54 yrs Gender: Female Patient Location: [facility] Reason For Study: Chest pain, unspecifie d type, Family history of VA (myocardial i History: Diabetes, Family Hx, Hyperlipid emia Ordering Physician: KERA BERNARD Referring Physician: PANKAJ HILLS Performed By: Sandra Felix BSA: 1.8 m2 Height: 62 in Weight: 183 lb HR: 95 BP: 120/70 mmHg Medications: Simvastatin __ Procedure Stress Echo Complete. Contrast Optison. __ Interpretation Summary There was no chest pain or significant S T changes with exercise. This was a normal stress echocardiogram with no evidence of stress-induced ischemia. Normal resting wall motion and no stress -induced wall motion abnormality. __ Stress The patient exercised 6:56. Exercise was stopped due to fatigue. The patient exhibited no chest pain duri ng exercise. There was a normal BP response to exerci se. RPP 23,976. Target Heart Rate was achieved. A moderate workload was achieved. The Cordoba treadmill score was low risk ( >5 Cordoba score). No arrhythmia noted. There was no chest pain or significant S T changes with exercise. This was a normal stress echocardiogram with no evidence of stress-induced ischemia. The visual ejection fraction is estimate d at 65-70%. Normal resting wall motion and no stress -induced wall motion abnormality. Baseline The patient is in normal sinus rhythm. Left axis deviation, iRBBB, low voltage. Normal left ventricular function and wal l motion at rest. The visual ejection fraction is estimate d at 55-60%. Stress Results ? Protocol: ??Juanito ?Maximum Predicted HR: ?? 164 bpm ? Target HR: 139 bpm ?% Maximum Predicted HR: 90 % ?Stage ??Durat ionHeart Rate ??BP ? Comment ? (mm :ss) ?? (bpm) ? Stage 1 ?? 3:00 ? 126 ?140/70 ? Stage 2 ?? 3:00 ? 136 ?150/70 ? Stage 3 ?? 0:56 ? 148 ?162/70DUKE Score: 7 ?RecoveryR ??6:00 ?85 ?130/70FAC: Average ? Stress Duration: ?? 6:56 mm:ss * ?Recovery Time: 6:00 mm:ss ? Maximum Stress HR: 148 bpm * ? METS: ?8 Tricuspid Valve Right ventricular systolic pressure coul d not be approximated due to inadequate tricuspid regurgitation. Aortic Valve No hemodynamically significant valvular aortic stenosis. __ Report approved by: Hilaria Lujan 12/16/2019 12:34 PM __ Procedure Note Jose Fletcher MD - 12/16/2019Format ting of this note might be different from the original. [id number] [facility] [id number]^QASIM^KERA^Tobi [facility] [address] [place] [id number] Name: MEGAN WONG : 1965 Study Date: 12/16/2019 09:06 AM Age: 54 yrs Gender: Female Patient Location: [facility] Reason For Study: Chest pain, unspecifie d type, Family history of VA (myocardial i History: Diabetes, Family Hx, Hyperlipid emia Ordering Physician: KERA BERNARD Referring Physician: PANKAJ HILLS Performed By: Sandra Felix BSA: 1.8 m2 Height: 62 in Weight: 183 lb HR: 95 BP: 120/70 mmHg Medications: Simvastatin __ Procedure Stress Echo Complete. Contrast Optison. __ Interpretation Summary There was no chest pain or significant S T changes with exercise. This was a normal stress echocardiogram with no evidence of stress-induced ischemia. Normal resting wall motion and no stress -induced wall motion abnormality. __ Stress The patient exercised 6:56. Exercise was stopped due to fatigue. The patient exhibited no chest pain duri ng exercise. There was a normal BP response to exerci se. RPP 23,976. Target Heart Rate was achieved. A moderate workload was achieved. The Cordoba treadmill score was low risk ( >5 Cordoba score). No arrhythmia noted. There was no chest pain or significant S T changes with exercise. This was a normal stress echocardiogram with no evidence of stress-induced ischemia. The visual ejection fraction is estimate d at 65-70%. Normal resting wall motion and no stress -induced wall motion abnormality. Baseline The patient is in normal sinus rhythm. Left axis deviation, iRBBB, low voltage. Normal left ventricular function and wal l motion at rest. The visual ejection fraction is estimate d at 55-60%. Stress Results Protocol: Juanito Maximum Predicted HR: 1 64 bpm Target HR: 139 bpm % Maximum Predicted HR: 90 % Stage DurationHeart Rate BP Comment (mm:ss) (bpm) Stage 1 3:00 126 140/70 Stage 2 3:00 136 150/70 Stage 3 0:56 148 162/70DUKE Score: 7 RecoveryR 6:00 85 130/70FAC: Average Stress Duration: 6:56 mm:ss * Recovery Time: 6:00 mm:ss Maximum Stress HR: 148 bpm * METS: 8 Tricuspid Valve Right ventricular systolic pressure coul d not be approximated due to inadequate tricuspid regurgitation. Aortic Valve No hemodynamically significant valvular aortic stenosis. __ Report approved by: Hilaria Lujan 12/16/2019 12:34 PM __ Kera Bernard MD CV ECHO ORDERABLES XR Chest 2 Views (11/06/2019 8:04 PM CDT) Anatomical Region Laterality Modality Chest Digital Radiography Specimen (Source) Anatomical Collection Method Collection Time Re ceived Time Location / / Volume Laterality 11/06/2019 7:58 PM CDT Impressions 11/06/2019 8:24 PM CDT IMPRESSION: Negative chest. Postsurgical change in the lower cervical spine. Narrative 11/06/2019 8:24 PM CDT EXAM: XR CHEST 2 VW LOCATION: [facility] DATE/TIME: 11/06/2019 7:58 PM INDICATION: Chest pain COMPARISON: None. Procedure Note Zachary Pardo MD - 11/06/2019Formatt ing of this note might be different from the original. EXAM: XR CHEST 2 VW LOCATION: [facility] DATE/TIME: 11/06/2019 7:58 PM INDICATION: Chest pain COMPARISON: None. IMPRESSION: Negative chest. Postsurgical change in the lower cervical spine. Kera Bernard MD IMG DIAGNOSTIC IMAGING ORDER ILDEFONSO (ABNORMAL) Lipase (11/06/2019 6:28 PM CDT) athologist Signature Lipase 66 (L) 73 - 393 11/06/2019 [facility] U/L 7:36 PM CDT HOSPITAL Specimen Anatomical Collection Method Collection Time Receive d Time (Source) Location / / Volume Laterality 11/06/2019 6:28 PM 0 6:35 CDT PM CDT Kera Bernard MD LAB - BLOOD ORDERABLES Performing Organization Address [facility] Phon [place] [phone] [place] [phone] D dimer quantitative (11/06/2019 6:28 PM CDT) athologist Signature D Dimer 0.5 0.0 - 0.50 11/06/2019 [facility] ug/ml FEU 7:40 PM CDT HOSPITAL Comment: This D-dimer assay is intended for use i n conjunction with a clinical pretest probability assessment model to exclude pulmonary embolism (PE) and deep venous thrombosis (DVT) in outpatients s uspected of PE or DVT. The cut-off value is 0.5 ug/mL FEU. Specimen Anatomical Collection Method Collection Time Receive d Time (Source) Location / / Volume Laterality 11/06/2019 6:28 PM 0 6:35 CDT PM CDT Kera Bernard MD LAB - BLOOD ORDERABLES Performing Organization Address [facility] Phon e Number [facility] [address] [address] [facility] [address] [place], [place] [address] [phone] (ABNORMAL) Hepatic panel (11/06/2019 6:28 PM CDT) Analysis Performed At Patho logist Time Signature Bilirubin Direct <0.1 0.0 - 0.2 11/06/2019 [place] mg/dL 7:45 PM T [facility] Bilirubin Total 0.3 0.2 - 1.3 11/06/2019 [place] mg/dL 7:45 PM T [facility] Albumin 3.7 3.4 - 5.0 11/06/2019 [place] g/dL 7:45 PM [facility] Protein Total 7.8 6.8 - 8.8 11/06/2019 [place] g/dL 7:45 PM [facility] Alkaline 157 (H) 40 - 150 11/06/2019 [place] Phosphatase U/L 7:45 PM [facility] ALT 36 0 - 50 U/L 11/06/2019 [place] 7:45 PM [facility] AST 21 0 - 45 U/L 11/06/2019 [place] 7:45 PM [facility] Specimen Anatomical Collection Method Collection Time Receive d Time (Source) Location / / Volume Laterality 11/06/2019 6:28 PM 0 6:35 CDT PM CDT Kera Bernard MD LAB - BLOOD ORDERABLES Performing Organization Address City/State/ZIP Code Phon e Number M [facility] [address] [place] [address] [phone] [facility] [address] [place] [address], [place] [phone] Troponin I (now) (11/06/2019 6:28 PM CDT) P athologist Signature Troponin I ES <0.015 0.000 - 11/06/2019 [place] 0.045 ug/L 7:00 PM T [facility] Comment: The 99th percentile for upper reference range is 0.045 ug/L. ??Troponin values in the range of 0.045 - 0.120 ug/L may b e associated with risks of adverse clinical events. Specimen Anatomical Collection Method Collection Time Receive d Time (Source) Location / / Volume Laterality Blood specimen 11/06/2019 6:28 PM 020 6:35 (specimen) CDT PM CDT Kera Bernard MD LAB - BLOOD ORDERABLES Performing Organization Address City/State/ZIP Code Phon e Number [place] [address] [address] [place], [place] [address] [facility] [address] [place], [place] [address] [phone] (ABNORMAL) Basic metabolic panel (BMP) (11/06/2019 6:28 PM CDT) athologist Signature Sodium 140 133 - 144 11/06/2019 [place] mmol/L 6:50 PM [facility] Potassium 3.5 3.4 - 5.3 11/06/2019 [place] mmol/L 6:50 PM [facility] Chloride 107 94 - 109 11/06/2019 [place] mmol/L 6:50 PM [facility] Carbon Dioxide 28 20 - 32 11/06/2019 [place] mmol/L 6:56 PM [facility] Anion Gap 5 3 - 14 11/06/2019 [place] mmol/L 6:56 PM [facility] Glucose 129 (H) 70 - 99 11/06/2019 [place] mg/dL 6:56 PM [facility] Urea Nitrogen 17 7 - 30 11/06/2019 [place] mg/dL 6:56 PM [facility] Creatinine 0.82 0.52 - 11/06/2019 [place] 1.04 mg/dL 6:56 PM [facility] GFR Estimate 80 >60 11/06/2019 [place] mL/min/{1. 6:[address] [facility] 73_m2} HOSPITAL Comment: Non GFR Calc Starting 05/28/2018, serum creatinine ba sed estimated GFR (eGFR) will be calculated using the Chronic Kidney Dise ase Epidemiology Collaboration (CKD-EPI) equation. GFR Estimate If >90 >60 mL/min/{1.73_m2} 11/06/2019 6: 56 PM [facility] Comment: GFR Calc Starting 05/28/2018, serum creatinine ba sed estimated GFR (eGFR) will be calculated using the Chronic Kidney Dise ase Epidemiology Collaboration (CKD-EPI) equation. Calcium 9.1 8.5 - 10.1 mg/dL 11/06/2019 6:56 PM T [facility] Specimen Anatomical Collection Method Collection Time Receive d Time (Source) Location / / Volume Laterality Blood specimen 11/06/2019 6:28 PM 020 6:35 (specimen) CDT PM CDT Kera Bernard MD LAB - BLOOD ORDERABLES Performing Organization Address City/State/ZIP Code Phon e Number [place] [id number] [place] [address] [facility] [address] [place] [place], [place] [address], [facility] [phone] [address], [facility] [phone] [facility] CBC + differential (11/06/2019 6:28 PM CDT) [facility] gist Method Time Signature WBC 7.2 4.0 - 11/06/2019 [facility] 11.0 6:41 PM [facility] 10e9/L [facility] RBC Count 4.83 3.8 - 5.2 11/06/2019 [facility] 10e12/L 6:41 PM [facility] Hemoglobin 14.8 11.7 - 11/06/2019 [facility] 15.7 g/dL 6:41 PM [facility] Hematocrit 45.7 35.0 - 11/06/2019 [facility] 47.0 % 6:41 PM [facility] MCV 95 78 - 100 11/06/2019 [facility] fl 6:41 PM [facility] MCH 30.6 26.5 - 11/06/2019 [facility] 33.0 pg 6:41 PM [facility] MCHC 32.4 31.5 - 11/06/2019 [facility] 36.5 g/dL 6:41 PM [facility] RDW 12.6 10.0 - 11/06/2019 [facility] 15.0 % 6:41 PM [facility] Platelet Count 259 150 - 450 11/06/2019 [facility] 10e9/L 6:41 PM [facility] Diff Method Automated 11/06/2019 [facility] Method 6:41 PM [facility] % Neutrophils 42.4 % 11/06/2019 [facility] 6:41 PM [facility] % Lymphocytes 45.5 % 11/06/2019 [facility] 6:41 PM [facility] % Monocytes 9.2 % 11/06/2019 [facility] 6:41 PM [facility] % Eosinophils 1.7 % 11/06/2019 [facility] 6:41 PM [facility] % Basophils 1.1 % 11/06/2019 [facility] 6:41 PM [facility] % Immature 0.1 % 11/06/2019 [facility] Granulocytes 6:41 PM [facility] Nucleated RBCs 0 0 /100 11/06/2019 [facility] 6:41 PM [facility] Absolute 3.0 1.6 - 8.3 11/06/2019 [facility] Neutrophil 10e9/L 6:41 PM [facility] Absolute 3.3 0.8 - 5.3 11/06/2019 [facility] Lymphocytes 10e9/L 6:41 PM [facility] Absolute 0.7 0.0 - 1.3 11/06/2019 [facility] Monocytes 10e9/L 6:41 PM [facility] Absolute 0.1 0.0 - 0.7 11/06/2019 [facility] Eosinophils 10e9/L 6:41 PM [facility] Absolute 0.1 0.0 - 0.2 11/06/2019 [facility] Basophils 10e9/L 6:41 PM [facility] Abs Immature 0.0 0 - 0.4 11/06/2019 [facility] Granulocytes 10e9/L 6:41 PM [facility] Absolute 0.0 11/06/2019 [facility] Nucleated RBC 6:41 PM [facility] Specimen Anatomical Collection Method Collection Time Receive d Time (Source) Location / / Volume Laterality Blood specimen 11/06/2019 6:28 PM 020 6:35 (specimen) CDT CDT Kera Bernard MD LAB - BLOOD ORDERABLES Performing Organization Address City/State/ZIP Code Phon e Number M [facility] [address] [place], [place] [address] [facility] [address] [place], [place] [address] [facility] [phone] EKG 12 lead (11/06/2019 6:19 PM CDT) [facility] gist Method Time Signature Interpretation ECG Click View RADIOLOGY Image link RESULTS to view waveform and result Specimen (Source) Anatomical Collection Method Collection Time Re ceived Time Location / / Volume Laterality 11/06/2019 6:19 PM CDT Kera Bernard MD ECG ORDERABLES Performing Organization Address City/State/ZIP Code Phon e Number RADIOLOGY RESULTS documented in this encounter Visit Diagnoses Diagnosis Chest pain, unspecified type Family history of VA (myocardial infarct ion) Family history of ischemic heart disease Chest pain, unspecified type Family history of VA (myocardial infarct ion) Family history of ischemic heart disease documented in this encounter Administered Medications Inactive Administered Medications - up to 3 most recent administrations Medication Order MAR Action Action Date Dose Rate Site aspirin (ASA) chewable tablet 324 Given 11/06/2019 7:27 PM CDT 3 24 mg mg 324 mg, Oral, ONCE, On [place] 11/06/19 at 1917, For 1 dose famotidine (PEPCID) injection 20 mg Given 11/06/2019 7:27 PM CDT 20 mg 20 mg, Intravenous, Administer over 2 Minutes, ONCE, On [place] 11/06/19 at 1917, For 1 dose, For ordered IV doses 1-20 mg, give IV Push diluted with 5-10ml NS over a minimum of 2 minutes. lidocaine (XYLOCAINE) 2 % 15 mL, alum & mag Given 11/06/2019 7:29 PM CDT 30 mLs hydroxide-simethicone (MAALOX ES) 15 mL GI Cocktail 30 mL, Oral, ONCE, On [place] 11/06/19 at 1917, For 1 dose documented in this encounter Active and Recently Administered Medications Times are shown in CDT. Scheduled Medication Order 11/04/2019 11/05/2019 11/06/2019 aspirin (ASA) chewable tablet 324 mg (COMPLETED) 1926 (Given - Provider: Laengle. Chica Alejandro RN) 324 mg, Oral, ONCE, [place] 11/06/19 at 191, For 1 dose famotidine (PEPCID) injection 20 mg (COMPLETED) 1926 (Given - Provider: Laengle. Chica Alejandro, RN) 20 mg, Intravenous, Administer over 2 Mi nutes, ONCE, [place] 11/06/19 at 191, For 1 dose, For ordered IV doses 1-20 mg, give IV Push diluted with 5-10ml NS over a minimum of 2 minutes. lidocaine (XYLOCAINE) 2 % 15 mL, alum & mag hydroxide-simethicone (MAALOX ES) 15 mL GI Cocktail (COMPLETED) 1928 (Given - Provider: Laengle. 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
--- OUTSIDE RECORDS SUMMARY | 2022-01-17 22:05 | XMS_ITS | Encounter Summary ---
:1965 Author Organization [place] Address [address] [place] [address] Care Team Providers Name Role Phone Noreen Hills APRN LACE SEWER Unavailable [phone] Noreen Hills APRN LACE SEWER Primary Care Provider [phone] Kalyan Galvan Unavailable Unavailable Lashae Trevino [facility] Unavailable [phone] Reason for Visit Reason Comments Medication Refill Encounter Details Date Type Department Care Team Description 12/09/2019 Refill [facility] Noreen Hills, Medication Refill [place] LACE SEWER [address] [facility] [address] [place] [address] [address] [place] [address] [place] [address] [phone] Social History Tobacco Use Types Packs/Day Years [...] How often do you attend scientologist or cheondoism Patient refused 08/08/2019 services? 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 documented as of this encounter Care Teams Software Engineer Kernel Relationship Specialty Start Date End Date Noreen Hills PCP - General Nurse Practitioner 01/09/19 12/12/21 SEAN Haley LACE SEWER [address] [facility] [place] [address] Noreen Hills Assigned PCP 06/16/18 SEAN Haley LACE SEWER [address] [facility] [place] [phone] Kalyan Galvan Personal Advocate & 08/08/19 Liaison (PAL) Lashae Trevino Pharmacist Pharmacist 10/14/19 12/01/20 Kiran [facility] [address] [facility] [place] [address] documented as of this encounter
--- OUTSIDE RECORDS SUMMARY | 2022-01-17 22:05 | XMS_ITS | Encounter Summary ---
:1965 Author Organization [place] Address [address] [place] [address] Care Team Providers Name Role Phone Noreen Hills APRN HAND SHAKER Unavailable [phone] Noreen Hills APRN HAND SHAKER Primary Care Provider [phone] Kalyan Galvan Unavailable Unavailable Lashae Trevino [facility] Unavailable [phone] Encounter Details Date Type Department Care Team Description 11/11/2019 Travel Social History Tobacco Use Types Packs/Day [...] How often do you attend denominational or uatsdin Patient refused 08/08/2019 services? 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
--- OUTSIDE RECORDS SUMMARY | 2022-01-17 22:05 | XMS_ITS | Encounter Summary ---
:1965 Author Organization [place] Address [address] [place] [address] Care Team Providers Name Role Phone Noreen Hills APRN INVESTIGATIONS DIRECTOR Unavailable [phone] Noreen Hills APRN INVESTIGATIONS DIRECTOR Primary Care Provider [phone] Kalyan Galvan Unavailable Unavailable Lashae Trevino [facility] Unavailable [phone] Reason for Visit Reason Onset Date Comments Appointment 11/07/2019 Encounter Details Date Type Department Care Team Description 11/07/2019 Telephone [facility] Marilin Marshall NP Appointment [place] [address] [facility] [address] [facility] [place] [address] [address] [place] [address] [phone] Social History Tobacco Use Types Packs/Day Years [...] 08/08/2019 relatives? How often do you attend scientology or hindu Patient refused 08/08/2019 services? Do you belong to any clubs or organizations such as No 08/08/2019 scientology groups, unions, fraternal or athletic groups, or [...] Notes Telephone Encounter - Lainey Wells - 11/11/2019 7:49 AM CDT The pt is aware and scheduled for her upcoming appointment. Lainey Wells on 11/11/2019 at 7:49 AM Telephone Encounter - Tatiana Marshall NP - 11/07/2019 12:59 PM CDT Would be ok to do virtual as well. Tatiana Marshall APRN, CNP Telephone Encounter - Lainey Wells - 11/07/2019 9:42 AM CDT 1st attempt l/m. FTF providers next week are Dr. Guerrero, Dr. Corbett and Selma Mccoy. Lainey Wells on 11/07/2019 at 9:47 AM Telephone Encounter - Tatiana Marshall NP - 11/07/2019 8:37 AM CDT Please help her schedule ER follow-up next week. 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 documented as of this encounter Care Teams Head Waitress Relationship Specialty Start Date End Date Noreen Hills PCP - General Nurse Practitioner 01/09/19 12/12/21 SEAN Haley INVESTIGATIONS DIRECTOR [address] [facility] [place] [address] Noreen Hills Assigned PCP 06/16/18 SEAN Haley INVESTIGATIONS DIRECTOR [address] [facility] [place] [address] Kalyan Galvan Personal Advocate & 08/08/19 Liaison (PAL) Lashae Trevino Pharmacist Pharmacist 10/14/19 12/01/20 Kiran, [facility] [address] [place] [address] documented as of this encounter
--- OUTSIDE RECORDS SUMMARY | 2022-01-17 22:05 | XMS_ITS | Encounter Summary ---
:1965 Author Organization [place] Address [address] [place] [address] Care Team Providers Name Role Phone Noreen Hills APRN SPONGE PRESS OPERATOR Unavailable [phone] Noreen Hills APRN SPONGE PRESS OPERATOR Primary Care Provider [phone] Kalyan Galvan Unavailable Unavailable Lashae Trevino [facility] Unavailable [phone] Reason for Visit Reason Onset Date Comments Recheck Medication 10/28/2019 Cyclobenzaprine Encounter Details Date Type Department Care Team Description 10/28/2019 Virtual Visit [facility] Noreen Hills Dry mouth (Primary Dx); Clinic [place] Haley APRN Pain of left lower leg; [address] [facility] Migraine without status migrainosus, not intractable, unspecified migraine type; [address] [facility] Type 2 diabetes mellitus wit h complication, without long-term current use of insulin (H) [address] [facility] [place] [address] [place] [phone] Social History Tobacco Use Types Packs/Day Years [...] 08/08/2019 relatives? How often do you attend anabaptist or scientology Patient refused 08/08/2019 services? Do you belong to any clubs or organizations such as No 08/08/2019 anabaptist groups, [employer]ss, frauniRow or athletic groups, or school groups? How [...] - Inhaled Oxygen Concentration - - Weight 84.8 kg (187 lb) 10/28/2019 11:02 AM CDT stated Height 157.5 cm (5' 2) 10/28/2019 11:02 AM CDT Body Mass Index 34.2 10/28/2019 11:02 AM CDT documented in this encounter Progress Notes Noreen Hills, SEAN SPONGE PRESS OPERATOR - 10/28/2019 11:30 AM CDT Megan Choi is a 54 [...] would you like to be contacted at? [phone] How would you like to obtain your AVS? MyChart Subjective Megan Choi is a 54 year old female who presents via phone visit today for the following health issues: HPI Medication Followup of Cyclobenzaprine ?? Taking Medication as prescribed: NO ?? Side Effects: Dry mouth ?? Medication Helping Symptoms: Not really per pt. Notes her dry mouth is significantly better since tapering off 1 week, then stopping completely 1 week. Not completely better but it is at an acceptable level. Thinks it's 3/4 better. Medication Followup of Topiramate ?? Taking Medication as prescribed: yes ?? Side Effects: None ?? Medication Helping Symptoms: No - no relief per pt Pt notes headaches everyday. Wakes up with them. But doesn't wake up from them. Typically stats withibuprofen. If that doesn't work will use sumatriptan. says she snores. Has sleep appt 11/14. Years ago sleep study said mild MYLES. Notes sleep is better. Still wakes up secondary to pain. Notes chronic muscle pain lower back and down bilateral legs, more on R than L. Doesn't think the cyclobenzaprine was helping pain at all. Wants to discuss MRI results. Woke up with pain in her big toe left foot. Hasn't gotten the results yet from her neurosurgeon. Reviewed and updated as needed this visit by Provider Review of Systems Constitutional, HEENT, cardiovascular, pulmonary, gi and gu systems are negative, except as otherwise noted. Assessment/Plan: (R68.2) Dry mouth (primary encounter diagnosis) Comment: States it is about 75% better now that she is completely off the cyclobenzaprine. Doesn't feel cyclobenzaprine wasn't helping in hindsight. Plan: -Continue off cyclobenzaprine -Consider switching from Cymbalta to effexor in the future if still having trouble with dry mouth. Cymbalta can case dry mouth. (M79.662) Pain of left lower leg Comment: Had MRI Plan: I messaged her spine doc asking him to call the patient again with results. He called her but they were cut off. (G48.914) Migraine without status migrainosus, not intractable, unspecified migraine type Comment: Daily headaches. Unclear if they are migraines or other headaches. It sounds like the 25mg imitrex isn't fully resolving the headaches. Did not tolerate an increase in topamax. Plan: SUMAtriptan (IMITREX) 50 MG tablet -Increase imitrex from 25-50mg to 50 to 100, may repeat x 1. Discussed max dosing. This may help fully cut out a headache and prevent them from continuing -Stress management, stay active -Has upcoming sleep appointment. If she has MYLES this could contribute to headaches -She agrees to see neuro and try another preventative agent if these 2 interventions don't get to the bottom of her headaches. (E11.8) Type 2 diabetes mellitus with complication, without long-term current use of insulin (H) Plan: A1C FUTURE 1yr She will message me in 2 months with an update. A1c in January. Phone call duration: 23 minutes Noreen Hills APRN CNP documented in this encounter Plan of Treatment Not on filedocumented as of this encounter Results (ABNORMAL) A1C FUTURE 1yr (01/13/2020 8:55 AM CDT) P athologist Signature Hemoglobin A1C 6.1 (H) 0 - 5.6 % 01/13/2020 [place] 9:27 AM CDT [facility] Comment: Normal <5.7% Prediabetes 5.7-6.4% ??Diab etes 6.5% or higher - adopted from ADA consensus guidelines. Specimen Anatomical Collection Method Collection Time Receive d Time (Source) Location / / Volume Laterality Blood specimen 01/13/2020 8:55 AM 020 8:56 (specimen) CDT AM CDT Noreen Hills APRN, CNP LAB - BLOOD ORDERABLES Performing Organization Address City/State/ZIP Code Phon e Number [address] [place] [address] documented in this encounter Visit Diagnoses Diagnosis Dry mouth - Primary Disturbance of salivary secretion Pain of left lower leg Pain in limb Migraine without status migrainosus, not intractable, unspecified migraine type Type 2 diabetes mellitus with complicati on, without long-term current use of insulin (H) documented in this encounter Additional Health Concerns Assessment Noted Time PHQ-9 Depression Total Score: 9 08/09/2019 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
--- OUTSIDE RECORDS SUMMARY | 2022-01-17 22:05 | XMS_ITS | Encounter Summary ---
:1965 Author Organization [place] Address [address] [place] [address] Care Team Providers Name Role Phone Noreen Hills APRN ADMISSION SPECIALIST Unavailable [phone] Noreen Hills APRN ADMISSION SPECIALIST Primary Care Provider [phone] Kalyan Galvan Unavailable Unavailable Lashae Trevino [facility] Unavailable [phone] Reason for Visit Reason Onset Date Comments Follow Up 11/11/2019 er follow up Encounter Details Date Type Department Care Team Description 11/11/2019 Virtual Visit [facility] Kleber Lima MD Hyperlipidemia LDL goal <100 (Primary Dx ); Clinic [address] Type 2 diabetes mellitus wit h complication, without long-term current use of insulin (H) [address] [place] [address] [address] [place] [address] (Work) [phone] Social History Tobacco Use Types Packs/Day Years [...] 08/08/2019 relatives? How often do you attend restorationist or restorationist Patient refused 08/08/2019 services? Do you belong to any clubs or organizations such as No 08/08/2019 restorationist groups, unions, fraternal or athletic groups, or [...] documented as of this encounter Progress Notes Kleber Lima MD - 11/11/2019 3:40 PM CDT Megan Choi is a 54 year [...] would you like to be contacted at? [phone] How would you like to obtain your AVS? MyChart Subjective Megan Choi is a 54 year old female who presents via phone visit today for the following health issues: HPI ED/UC Followup: Facility: [facility] Emergency Department Date of visit: 11/06/2019 Reason for visit: chest pain Current Status: discharged Seen on 11/05 in emergency room. Had been woken up out of her sleep. Had tremendous pain under breast bone, painful. Hurt so bad, she sat straight up. Rocking back and forth, put hand into a fist and pressed against her chest. Woke up her , tried ibuprofen. Subsided after 5 min, lay back down,but then had a migraine the next AM. Stayed home and rested; could still feel a residue pain, likegot hit in the chest. Then that evening had a longer episode, about 10 minutes. Went to emergency room, and had negative D-dimer and scheduled a stress echocardiogram. However, shehas concerns over the cost. CHEST PAIN ?? Onset: 11/06/2019 ?? Description: Location: Right in the middle Character: sharp Radiation: none Duration: 5-10 minutes ?? Intensity: severe ?? Progression of Symptoms: Feels tender/bruised ?? Accompanying Signs & Symptoms: Shortness of breath: no Sweating: YES- nothing unusual Nausea/vomiting: no Lightheadedness: no Palpitations: no Fever/Chills: no Cough: no Heartburn: YES- nothing unusual ?? History: Family history of heart disease YES- multiple family member have had MO Tobacco use: no ?? Precipitating factors: Worse with exertion: YES- felt funny at work, chest started to hurt at work Worse with deep breaths : YES Related to food: no ?? Alleviating factors: Ibuprofen. Therapies Tried and outcome: ibuprofen Patient Active Problem List Diagnosis ??? Migraine headache ??? GERD (gastroesophageal reflux disease) ??? Family history of MO (myocardial infarction) ??? Persistent insomnia ??? Type 2 diabetes mellitus with complication, without long-term current use of insulin (H) ? ? Hyperlipidemia LDL goal <100 ??? Allergic rhinitis, unspecified seasonality, unspecified trigger ??? Vulvar dystrophy ??? Major depressive disorder, recurrent (H) ??? Fibromyalgia ??? Anxiety ??? History of lumbar fusion ??? History of fusion of cervical spine ??? Heart murmur ??? Neoplasm of uncertain behavior of skin ??? Solar lentiginosis ??? Morbid obesity (H) ??? Dry mouth ??? Pain of left lower leg ??? Constipation, unspecified constipation type ??? Snoring ??? Vitamin D deficiency Past Surgical History: Procedure Laterality Date ??? C SPINAL FUSION,ANT,EA ADNL LEVEL 2005 L5, S1, Repeated in 2005 ??? C SPINAL FUSION,ANT,EA ADNL LEVEL 2007 SI joints ??? C SPINAL FUSION,ANT,EA ADNL LEVEL 2001 C5-C7 fused ??? SECTION ??? ENT SURGERY T&A < 10 y/o ??? REPAIR TENDON PERONEAL Left 06/08/2016 Procedure: REPAIR TENDON PERONEAL; Surgeon: Agatha Null DPM, Pod; Location: [facility] OR Social History Tobacco Use ??? Smoking status: Never Smoker ??? Smokeless tobacco: Never Used Substance Use Topics ??? Alcohol use: Yes Frequency: Monthly or less Drinks per session: 1 or 2 Binge frequency: Never Comment: Rare Family History Problem Relation Age of Onset ??? Cardiovascular Mother MO age 72 ??? Diabetes Mother Type II ??? Hypertension Mother ??? Lipids Mother ??? Arthritis Mother OA ??? Kidney Disease Mother 70 ??? Cardiovascular Father MO early 40s, subsequent bipass ??? Hypertension Father ??? Diabetes Father ??? Lipids Father ??? Diabetes Maternal Grandmother ??? Hypertension Maternal Grandmother ??? Lipids Maternal Grandmother ??? Diabetes Maternal Grandfather ??? Hypertension Maternal Grandfather ??? Lipids Maternal Grandfather ??? Diabetes Paternal Grandmother ??? Hypertension Paternal Grandmother ??? Cardiovascular Paternal Grandmother ??? Lipids Paternal Grandmother ??? Diabetes Paternal Grandfather ??? Hypertension Paternal Grandfather ??? Cardiovascular Paternal Grandfather ??? Lipids Paternal Grandfather ??? Lipids Sister ??? Lipids Sister ??? Lipids Brother ??? Hypertension Sister ??? Hypertension Sister ??? Hypertension Brother ??? Diabetes Sister ??? Diabetes Sister ??? Diabetes Brother ??? Kidney Disease Brother 55 Current Outpatient Medications Medication Sig Dispense Refill ? ? JAY/ARB NOT PRESCRIBED, INTENTIONAL, 1 [...] ??? fluticasone (FLONASE) 50 MCG/ACT nasal spray [place] 1-2 sprays into both nostrils daily 16 g 11 ??? IBUPROFEN PO Take 800 mg by mouth daily as needed for moderate pain ??? loratadine (CLARITIN) 10 MG tablet Take 10 mg by mouth daily ??? metFORMIN (GLUCOPHAGE) 500 MG tablet Take [...] AT BEDTIME NEEDED FOR SLEEP 60tablet 5 Allergies Allergen Reactions ??? Erythromycin Rash As a child Recent Labs Lab Test 11/06/19 1828 08/08/19 1017 01/02/19 0956 04/09/18 1009 06/12/17 1255 02/17/17 0913 09/25/16 1430 12/03/15 0850 A1C -- 6.2* 6.2* 6.1* 6.7* -- 5.9 < > -- LDL -- 103* -- 87 -- 111* -- -- 79 HDL -- 46* -- 45* -- 43* -- -- 51 TRIG -- 153* -- 213* -- 121 -- -- 109 ALT 36 -- -- -- 31 32 28 < > -- CR 0.82 0.72 -- 0.77 0.70 0.75 0.72 < > -- GFRESTIMATED 80 >90 -- 78 87 80 85 < > -- GFRESTBLACK >90 >90 -- >90 >90 >90 >90 GFR Calc < > -- POTASSIUM 3.5 4.3 -- 4.2 4.5 3.9 4.5 < > -- TSH -- -- -- -- -- -- 1.80 -- 3.93 < > = values in this interval not displayed. BP Readings from Last 3 Encounters: 11/06/19 130/84 08/08/19 104/62 01/21/19 110/60 Wt Readings from Last 3 Encounters: 11/06/19 83 kg (183 lb) 10/28/19 84.8 kg (187 lb) 08/08/19 88 kg (193 lb 14.4 oz) Reviewed and updated as needed this visit by Provider Review of Systems CONSTITUTIONAL: NEGATIVE for fever, chills, change in weight INTEGUMENTARY/SKIN: NEGATIVE for worrisome rashes, moles or lesions EYES: NEGATIVE for vision changes or irritation ENT/MOUTH: NEGATIVE for ear, mouth and throat problems RESP: NEGATIVE for significant cough or SOB BREAST: NEGATIVE for masses, tenderness or discharge CV: NEGATIVE for chest pain, palpitations or peripheral edema GI: NEGATIVE for nausea, abdominal pain, heartburn, or change in bowel habits : NEGATIVE for frequency, dysuria, or hematuria MUSCULOSKELETAL: NEGATIVE for significant arthralgias or myalgia NEURO: NEGATIVE for weakness, dizziness or paresthesias ENDOCRINE: NEGATIVE for temperature intolerance, skin/hair changes HEME: NEGATIVE for bleeding problems PSYCHIATRIC: NEGATIVE for changes in mood or affect Objective Reported vitals: [facility] 10/30/2011 healthy, alert and no distress PSYCH: Alert and oriented times 3; coherent speech, normal rate and volume, able to articulate logical thoughts, able to abstract reason, no tangential thoughts, no hallucinations or delusions Her affect is normal RESP: No cough, no audible wheezing, able to talk in full sentences Remainder of exam unable to be completed due to telephone visits Diagnostic Test Results: Labs reviewed in Epic Assessment/Plan: Chest pain: The patient's symptoms still remain concerning for angina. She does have multiple risk factors and a positive family history, however she did have a negative EKG and she did have a normal stress test with nuclear tracing approximately 3 years ago. I recommend that she continue to proceed with her stress echocardiogram, which she has hesitated to schedule owing to its cost. However I believe that having never met her before in person, and not being able to examine her since today's visit was a phone visit, she should proceed with the stress echo. She is already on good medications for her diabetes which can easily double as prevention for her possible undiagnosed cardiac disease. She is not on a beta-becka, and since she is not having anginal symptoms related to exercise, I will holdoff on adding a beta-becka at this time. Her diabetes is well controlled. gastroesophageal reflux disease: Symptoms seem controlled. Continue ppi. Consider esophagogastroduodenoscopy if symptoms persist despite a negative stress test. (E78.5) Hyperlipidemia LDL goal <100 (primary encounter diagnosis) Comment: Plan: controlled. diabetes mellitus: Parameters well controlled. Continue secondary risk factor modification for BP, cholesterol, anticoagulation, and smoking cessation. . No follow-ups on file. 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 [place] [address] Noreen Hills Assigned PCP 06/16/18 SEAN Haley ADMISSION SPECIALIST [address] [facility] [place] [address] Kalyan Galvan Personal Advocate & 08/08/19 Liaison (PAL) Lashae Trevino Pharmacist Pharmacist 10/14/19 12/01/[facility] [address] [place] [address] [place] [id number] documented as of this encounter
--- OUTSIDE RECORDS SUMMARY | 2022-01-17 22:05 | XMS_ITS | Encounter Summary ---
:1965 Author Organization [place] Address [address] [place] [address] Care Team Providers Name Role Phone Pankaj Woods APRN INVESTIGATION CLERK Unavailable [phone] Pankaj Woods APRN INVESTIGATION CLERK Primary Care Provider [phone] Kalyan Galvan Unavailable Unavailable Lashae Trevino [facility] Unavailable [phone] Reason for Visit (Routine) - Closed Specialty Diagnoses / Procedures Referred By Contact Refer red To Contact Cardiology Diagnoses NO BB Rh Cardiac Services Procedures ECHO STRESS TEST [address] [place], [place] [address] Phone: Referral ID Status Reason Start Date Expiration Date Visits Requ ested Visits Authorized [id number] Closed 12/16/2019 12/15/2020 1 1 Encounter Details Date Type Department Care Team Description 12/16/2019 Hospital Encounter [facility] Kera Tripp, Chest pain, unspecified type; [facility] Family history of VA (myocardial infarct ion) [facility] EMERGENCY [address] [facility] [place], [place] [address] [place] [address] [place], [place] [phone] [id number] Social History Tobacco Use Types Packs/Day Years [...] 08/08/2019 relatives? How often do you attend baptist or sabianism Patient refused 08/08/2019 services? Do you belong to any clubs or organizations such as No 08/08/2019 baptist groups, [place], fraMedaPhor or athletic groups, or school groups? How [...] been in contact with No / Unsure 12/16/2019 8:32 AM CDT someone who was confirmed or suspected to have Coronavirus / COVID-19? documented as of this encounter Medications at Time of Discharge [...] goal < 7% (H) fluticasone (FLONASE) 50 [place] 1-2 sprays 16 g 11 08/08 MCG/ACT [...] diabetes, HbA1c goal < directed. 7% (H) [facility] ALLERGY RELIEF-D TAKE 1 TABLET BY 90 tablet 1 0 12/23/2019 10-240 MG 24 hr MOUTH EVERY DAY tabletIndications: Chronic seasonal allergic rhinitis DULoxetine (CYMBALTA) 30 Take 1 capsule (30 [...] FOR SLEEP documented as of this encounter Progress Notes Chandra Wang T - 12/16/2019 10:04 AM CDT Stress echo completed. Contrast Optison used for image enhancement. documented in this encounter Plan of Treatment Not on filedocumented as of this encounter Procedures Procedure Name Priority Date/Time Associated Diagnosis Comme nts ECHO EXERCISE ALLEN 12/16/2019 9:43 AM Chest pain, Results for this STRESS TEST WITH CDT unspecified typ e procedure are in CONTRAST Family history of VA the res ults (myocardial section. infarction) documented in this encounter Results ECHO EXERCISE STRESS TEST WITH CONTRAST (12/16/2019 9:43 AM CDT) Anatomical Region Laterality Modality Echocardiography Specimen (Source) Anatomical Collection Method Collection Time Re ceived Time Location / / Volume Laterality 12/16/2019 9:06 AM CDT Narrative 12/16/2019 12:34 PM CDT [id number]^QASIM^KERA^Tobi [facility] Echocardiography Laboratory [address] [place] [address] Name: MEGAN CHOI : 1965 Study Date: 12/16/2019 09:06 AM Age: 54 yrs Gender: Female Patient Location: [facility] Reason For Study: Chest pain, unspecifie d type, Family history of VA (myocardial i History: Diabetes, Family Hx, Hyperlipid emia Ordering Physician: KERA TRIPP Referring Physician: PANKAJ WOODS Performed By: Sandra Felix BSA: 1.8 m2 [...] note might be different from the original. [id number]^QASIM^KERA^Tobi [facility] Echocardiography Laboratory [address] [place] [address] Name: MEGAN CHOI : 1965 Study Date: 12/16/2019 09:06 AM Age: 54 yrs Gender: Female Patient Location: [facility] Reason For Study: Chest pain, unspecifie d type, Family history of VA (myocardial i History: Diabetes, Family Hx, Hyperlipid emia Ordering Physician: KERA TRIPP Referring Physician: PANKAJ WOODS Performed By: Sandra Felix BSA: 1.8 m2 [...] Hilaria Lujan 12/16/2019 12:34 PM __ Kera Tripp MD CV ECHO ORDERABLES documented in this encounter Visit Diagnoses Diagnosis Chest pain, unspecified type Family history of VA (myocardial infarct ion) Family history of ischemic heart disease documented in this encounter Administered Medications Inactive Administered Medications - up to 3 most recent administrations Medication Order MAR Action Action Date Dose Rate Site perflutren diluted 1mL to 2mL with Given 12/16/2019 9:45 AM CDT 3 mLs saline (OPTISON) diluted injection 3 mL 3 mL, Intravenous, ONCE, On Sun12/16/19 at 0945, For 1 dose, [facility] [id number] sodium chloride (PF) 0.9% PF flush 10 mL Given 12/16/2019 9:44 AM CDT 10 mLs 10 mL, Intracatheter, ONCE, On Sun12/16/19 at 0945, For 1 dose documented in this encounter Additional Health Concerns Assessment Noted Time PHQ-9 Depression Total Score: 9 08/09/2019 7:03 AM 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
--- OUTSIDE RECORDS SUMMARY | 2022-01-17 22:05 | XMS_ITS | Encounter Summary ---
:1965 Author Organization [place] Address [address] [place] [address] Care Team Providers Name Role Phone Noreen Hills APRN HOUSING ASSISTANT Unavailable [phone] Noreen Hills APRN HOUSING ASSISTANT Primary Care Provider [phone] Kalyan Galvan Unavailable Unavailable Lashae Trevino [facility] Unavailable [phone] Encounter Details Date Type Department Care Team Description 12/16/2019 Travel Social History Tobacco Use Types Packs/Day [...] 08/08/2019 relatives? How often do you attend amish or yazdanism Patient refused 08/08/2019 services? 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
--- OUTSIDE RECORDS SUMMARY | 2022-01-17 22:05 | XMS_ITS | Encounter Summary ---
:1965 Author Organization [place] Address [address] [place] [address] Care Team Providers Name Role Phone Noreen Hills APRN MANAGEMENT ARCHITECT Unavailable [phone] Noreen Hills APRN MANAGEMENT ARCHITECT Primary Care Provider [phone] Kalyan Galvan Unavailable Unavailable Lashae Trevino [facility] Unavailable [phone] Reason for Visit Reason Comments Sleep Problem STM Encounter Details Date Type Department Care Team Description 12/10/2019 Documentation Only [facility] Sleep Sleep Problem (STM) Center [address], [address] [place] [address] Social History Tobacco Use Types Packs/Day Years [...] How often do you attend restorationist or oriental orthodox Patient refused 08/08/2019 services? Do you belong [...] documented as of this encounter Progress Notes Beni Keith - 12/10/2019 1:20 PM CDT STM Recheck: Left message for patient to call back. 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 documented as of this encounter Care Teams Barrel Rib Matting Machine Operator Relationship Specialty Start Date End Date Noreen Hills PCP - General Nurse Practitioner 01/09/19 12/12/21 SEAN Haley MANAGEMENT ARCHITECT [address] [facility] [place] [address] Nroeen Hills Assigned PCP 06/16/18 SEAN Haley MANAGEMENT ARCHITECT [address] [facility] [place] [phone] Kalyan Galvan Personal Advocate & 08/08/19 Liaison (PAL) Lashae Trevino Pharmacist Pharmacist 10/14/19 12/01/20 Kiran, [facility] [address] [facility] [address] [place] [phone] documented as of this encounter
--- OUTSIDE RECORDS SUMMARY | 2022-01-17 22:05 | XMS_ITS | Encounter Summary ---
:1965 Author Organization [facility] Address [address] [place] [address] Care Team Providers Name Role Phone Noreen Hills APRN PUMP STATION OPERATOR Unavailable [phone] Noreen Hills APRN PUMP STATION OPERATOR Primary Care Provider [phone] Kalyan Galvan Unavailable Unavailable Lashae Trevino [facility] Unavailable [phone] Reason for Referral Consultation (Routine) - Closed Specialty Diagnoses / Procedures Referred By Contact Refer red To Contact Diagnoses Chronic insomnia Eduardo Sharma MD [address] [address] Referral ID Status Reason Start Date Expiration Date Visits Requ ested Visits Authorized [id number] Closed 10/31/2019 10/30/2020 1 1 Reason for Visit Consultation (Routine) - Closed Specialty Diagnoses / Procedures Referred By Contact Refer red To Contact Diagnoses Snoring Noreen Hills [facility] INDUSTRIAL AUTOMATION SPECIALIST PUMP STATION OPERATOR [facility] [address] [place] [phone] [place] [id number] Referral ID Status Reason Start Date Expiration Date Visits Requ ested Visits Authorized [id number] Closed 08/08/2019 08/07/2020 1 1 Encounter Details Date Type Department Care Team Description 10/31/2019 Virtual Visit [facility] Noreen Hills Aleyda johnsonemily, INDUSTRIAL AUTOMATION SPECIALIST PUMP STATION OPERATOR [address] [place] [address] Snoring (Primary Dx); Sleep Centers Eduardo Goldman MD [address] [facility] [address] [place] [id number] Chronic insomnia; [address] MYLES (obst ructive sleep apnea); [facility] fatigue [address] [place] [id number] Social History Tobacco Use Types Packs/Day Years [...] 08/08/2019 relatives? How often do you attend confucianism or pentecostal Patient refused 08/08/2019 services? Do you belong to any clubs or organizations such as No 08/08/2019 confucianism groups, unions, fraternal or athletic groups, or [...] minutes do you engage in exercise at is 0 min 08/08/2019 level? Stress Answer [...] as of this encounter Patient Instructions Patient InstructionsEduardo Sharma MD - 10/31/2019 3:30 PM CDT 1. Home sleep test to assess sleep apnea 2. Referral to Dr. Whitehead, behavioral sleep specialist for insomnia 3. Obtain a light box (SAD lamp 10,000 lux) and have exposure to this light for half an hour in the morning after waking up 4. Take Melatonin 1 mg between 7-8 pm Instructions for treating Delayed Sleep Phase Syndrome: Delayed Sleep Phase Syndrome (DSPS) means that your body's internal timing is set late compared to the 24 hour day. Therefore, it is often difficult to get up on time for work in the morning and sometimes difficult to fall asleep on time, in order to get enough sleep. People with DSPS often tend to like to stay up late on weekends and sleep in until between 10 AM and noon, sometimes even later.This is actually a bad habit that will perpetuate the problem. It reinforces your body's tendency to be on that later schedule. You should go to bed when you are sleepy and ready to sleep. During this entire process, you should not engage in activities that may make it worse, such as watching TV in bed, leaving the TV on all night, drinking any caffeine 6 hours before bed or exercising 1-2 hours before bed. Start taking Melatonin, 1 mg tablet 5 hours before the time that you fall asleep on average (not your desired bedtime or time that you get in bed, but the time you normally fall asleep on your own). Upon awakening, get exposure to sun-light for about 30-45 minutes. You do not need to look at the sun, in fact, this is dangerous. Reading the paper with the sun shining on you is adequate. Alternatively, you may use a Seasonal Affective Disorder Lamp (intensity 10,000 Lux) instead of the sun. The lamp should be positioned 1-2 arms lengths away from you. They lamps are sold at [employer] such as [employer] or [employer]. A prescription can be written to get insurance coverage in some cases. They are also sold on [employer]. Using the light and melatonin should help march your internal clock (known as your circadian rhythms) gradually earlier. As your bedtime advances, remember to take your melatonin earlier, keeping it 5 hours before your fall asleep time. Avoid naps and sleeping in because sleeping during the day will delay your body's clock and you willhave to start from scratch. More information about light therapy: If you have any concerns regarding the safety of bright light therapy for you, it is recommended that you consult an hourly caregiver before using a light box. If you have a condition that makes your eyes very sensitive to light, macular degeneration, a family history of such problems, or diabetic changes to your eyes, consult an hourly caregiver before using a light box. If you have anxiety disorder and have an increase in anxiety discontinue use. documented in this encounter Progress Notes Eduardo Sharma MD - 10/31/2019 3:30 PM CDT Megna Choi is a 54 year old female [...] given verbal consent for Telephone visit? Yes How would you like to obtain your AVS? Mail a copy Phone call duration: 35 minutes Eduardo Sharma MD Sleep Consultation: Date on this visit: 10/31/2019 Megan Choi is sent by Noreen Hills for a sleep consultation regarding snoring and possible sleep apnea. Primary Physician: Noreen Hills Chief complaint: snoring, difficulty falling asleep & staying asleep, fatigue Presenting History: Megan Choi reports nightly Insomnia, snoring and poor quality of sleep for last 10 years. Medical history is significant for obesity, DM-2, depression, fibromyalgia, migraine. Patient has a history of chronic insomnia with sleep initiation and maintenance difficulty. She has been prescribed Zolpidem 5 mg which she has taken for many years without significant adverse effects.She denies any history of complex sleep behaviors. She only takes Zolpidem on days when she has to work the next morning. There is a degree of circadian misalignment. Patient describes themself as a night person. Her natural sleep window will be to go to sleep at 12:00 AM and wake up at 10:00 AM. 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 Megan goes to sleep at 10:00 PM during the week. She wakes up at 6:00 AM with an alarm. She fallsasleep in 20 minutes. Megan has difficulty falling asleep. She wakes up 2-4 times a night for 10 minutes before falling back to sleep. Megan wakes up to uncertain reasons. On weekends, Megan goes to sleep at 11:00 PM. She wakes up at 7:00 AM with an alarm. She falls asleep in 30 minutes. Patient gets an average of 7 hours of sleep per night. Patient had a PSG in 2009. YST was 426 mins with sleep latency of 18.5 minutes. Moderate MYLES was noted with an AHI of 16.7 per hour and RDI 26 per hour. Patient did not pursue treatment for her sleep apnea. Megan does snore frequently. Patient does have a regular bed partner. There is report of snoring,snorting and poor quality of sleep. She does not have witnessed apneas. They never sleep separately.Patient sleeps on her back and side. She has frequent morning dry mouth and morning headaches. Megan denies any bruxism, sleep walking, sleep talking, dream enactment, sleep paralysis, cataplexy andhypnogogic/hypnopompic hallucinations. She reports feeling tired during the day. Megan naps 0 times per week . She takes some inadvertant naps. She denies closing eyes, dozing and falling asleep while driving. Patient was counseled on the importance of driving while alert, to pick pulling machine operator if drowsy, or nap before getting into the vehicle if sleepy. She uses 3 sodas/day. Last caffeine intake is usually before 2 pm. Allergies: Allergies Allergen Reactions ??? Erythromycin Rash As a child Medications: Current Outpatient Medications Medication Sig Dispense Refill [...] ??? fluticasone (FLONASE) 50 MCG/ACT nasal spray [place] 1-2 sprays into both nostrils daily 16 [...] AT BEDTIME NEEDED FOR SLEEP 60tablet 5 Problem List: Patient Active Problem List Diagnosis Date Noted ??? Morbid obesity (H) 08/08/2019 Priority: Medium ??? Dry mouth 08/08/2019 Priority: Medium Also dry eyes. Have not had time to investigate. 07/2019 ??? Pain of left lower leg 08/08/2019 Priority: Medium See 07/2019. Likely radicular sx. ??? Constipation, unspecified constipation type 08/08/2019 Priority: Medium ??? Snoring 08/08/2019 Priority: Medium Sleep study ordered 07/2019 ??? Vitamin D deficiency 08/08/2019 Priority: Medium ??? Neoplasm of uncertain behavior of skin 08/21/2017 Priority: Medium ??? Solar lentiginosis 08/21/2017 Priority: Medium ??? Heart murmur 06/01/2016 Priority: Medium 1+ tricuspid regurg on 2012 echo ??? History of lumbar fusion 12/09/2014 Priority: Medium ??? History of fusion of cervical spine 12/09/2014 Priority: Medium ??? Anxiety 04/29/2014 Priority: Medium ??? Major depressive disorder, recurrent (H) 05/29/2012 Priority: Medium ??? Fibromyalgia 05/29/2012 Priority: Medium ??? Vulvar dystrophy 10/18/2011 Priority: Medium Biopsied 2011. No pre-cancerous cells. Treated with steroid. No current sx. Monitor with paps. ??? Allergic rhinitis, unspecified seasonality, unspecified trigger 05/05/2011 Priority: Medium ? ? Hyperlipidemia LDL goal <100 02/15/2010 Priority: Medium ??? Type 2 diabetes mellitus with complication, without long-term current use of insulin (H) 01/28/2010 Priority: Medium ??? Persistent insomnia 01/12/2010 Priority: Medium Ambien. Investigating 07/2019 why she is only allowed 20 tabs per month ??? Migraine headache 04/13/2008 Priority: Medium Increased topamax and sleep study ordered 07/2019. If no improvement refer back to neuro. Dr. Martinez, neurology (Problem list name updated by automated process. Provider to review and confirm.) ??? GERD (gastroesophageal reflux disease) 04/13/2008 Priority: Medium 07/2019 Did not have time to address PPI use. Address next visit ??? Family history of [place] (myocardial infarction) 04/13/2008 Priority: Medium At early age, father [place] at age 40 Past Medical/Surgical History: Past Medical History: Diagnosis Date ??? Aftercare following surgery of the musculoskeletal system 07/03/2016 ??? Arthritis ??? Diabetes mellitus (H) Type 2 ??? Dvt femoral (deep venous thrombosis) (H) 04/17 post surgical, stopped coumadin 01/16 ??? IFG (impaired fasting glucose) 10/03/2015 Past Surgical History: Procedure Laterality Date ??? C SPINAL FUSION,ANT,EA ADNL LEVEL 2005 L5, S1, Repeated in 2006 ??? C SPINAL FUSION,ANT,EA ADNL LEVEL 2007 SI joints ??? C SPINAL FUSION,ANT,EA ADNL LEVEL 2001 C5-C7 fused ??? SECTION ??? ENT SURGERY T&A < 10 y/o ??? REPAIR TENDON PERONEAL Left 06/08/2016 Procedure: REPAIR TENDON PERONEAL; Surgeon: Agatha Null DPM, Pod; Location: [facility] OR Social History: Social History Socioeconomic History ??? Marital status: Spouse name: Not on file ??? Number of children: Not on file ??? Years of education: Not on file ??? Highest education level: 12th grade Occupational History ??? 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 Financial resource strain: Not hard at all ??? Food insecurity Worry: Not on file Inability: Not on file ??? Transportation needs Medical: No Non-medical: No Tobacco Use ??? Smoking status: Never Smoker ??? Smokeless tobacco: Never Used Substance and Sexual Activity ??? Alcohol use: Yes Frequency: Monthly or less Drinks per session: 1 or 2 Binge frequency: Never Comment: Rare ??? Drug use: No ??? Sexual activity: Yes Partners: Male control/protection: Surgical Comment: Tubal Lifestyle ??? Physical activity Days per week: 0 days Minutes per session: 0 min ??? Stress: Rather much Relationships ??? Social connections Talks on phone: Three times a week Gets together: Patient refused Attends pentecostal service: Patient refused Active member of club or organization: No Attends meetings of clubs or organizations: Patient refused Relationship status: ??? Intimate partner violence Fear of current or ex partner: Not on file Emotionally abused: Not on file Physically abused: Not on file Forced sexual activity: Not on file Other Topics Concern ??? Parent/sibling w/ CABG, [place] or angioplasty before 65F 55M? No Social History Narrative ??? Not on file Family History: Family History Problem Relation Age of Onset ??? Cardiovascular Mother [place] age 72 ??? Diabetes Mother Type II ??? Hypertension Mother ??? Lipids Mother ??? Arthritis Mother OA ??? Kidney Disease Mother 70 ??? Cardiovascular Father [place] early 40s, subsequent bipass ??? Hypertension Father [...] Diabetes Brother ??? Kidney Disease Brother 55 - Daughter has sleep apnea. Sister has sleep apnea. Review of Systems: A complete review of systems reviewed by me is negative with the exeption of what has been mentionedin the history of present illness. CONSTITUTIONAL: NEGATIVE for weight gain/loss, fever, chills, sweats or night sweats, drug allergies. EYES: NEGATIVE for changes in vision, blind spots, double vision. ENT: NEGATIVE for ear pain, sore throat, sinus pain, post-nasal drip, runny nose, bloody nose CARDIAC: NEGATIVE for fast heartbeats or fluttering in chest, chest pain or pressure, breathlessnesswhen lying flat, swollen legs or swollen feet. NEUROLOGIC: POSITIVE for headaches DERMATOLOGIC: NEGATIVE for rashes, new moles or change in mole(s) PULMONARY: NEGATIVE SOB at rest, SOB with activity, dry cough, productive cough, coughing up blood, wheezing or whistling when breathing. GASTROINTESTINAL: NEGATIVE for nausea or vomitting, loose or watery stools, fat or grease in stools,constipation, abdominal pain, bowel movements black in color or blood noted. GENITOURINARY: NEGATIVE for pain during urination, blood in urine, urinating more frequently than usual, irregular menstrual periods. MUSCULOSKELETAL: NEGATIVE for muscle pain, bone or joint pain, swollen joints. ENDOCRINE: NEGATIVE for increased thirst or urination, diabetes. LYMPHATIC: NEGATIVE for swollen lymph nodes, lumps or bumps in the breasts or nipple discharge. Impression/Plan: 1. Obstructive sleep apnea - Patient had moderate sleep apnea in 2009 with an AHI of 16.7 per hour, which she had opted not treat. She continues to have symptoms of sleep disordered breathing. Untreated sleep apnea is a factor ins sleep maintenance difficulty and daytime fatigue. An overnight sleep study is recommended to reassess sleep apnea and plan management. Plan: - Home sleep apnea testing 2. Chronic Insomnia - Insomnia is multifactorial with chronic conditioned hyperarousal and circadian misalignment playing a role. She will continue Zolpidem under supervision of PCP. I think she will benefit from consultation with Behavioral sleep medicine. Plan: - Referral to Behavioral sleep medicine 3. Delayed sleep phase circadian rhythm disorder - Patient was educated on delayed sleep phase and management. Plan: - SAD lamp 10,000 lux for half an hour in the morning - Melatonin 1 mg between 7-8 pm Literature provided regarding sleep apnea, circadian rhythm disorders and insomnia. She will follow up with me in approximately two weeks after her sleep study has been competed to review the results and discuss plan of care. Polysomnography reviewed. Obstructive sleep apnea reviewed. Complications of untreated sleep apnea were reviewed. I spent a total of 35 minutes with patient with more than 50% in counseling Dr. Eduardo Sharma CC: Noreen Hills documented in this encounter Plan of Treatment Scheduled Referrals Name Type Priority Associated Diagnoses Order S [facility] SLEEP PSYCHOLOGY REFERRAL Referral Routine Chronic insomni a Ordered: 10/31/2019 documented as of this encounter Visit Diagnoses Diagnosis Snoring - Primary Other dyspnea and respiratory abnormalit y Chronic insomnia Insomnia, unspecified MYLES (obstructive sleep apnea) Obstructive sleep apnea (adult) (pediatr ic) Chronic fatigue Other malaise and fatigue documented in this encounter Additional Health Concerns Assessment Noted Time PHQ-9 Depression Total Score: 9 08/09/2019 7:03 AM METHODS ANALYST documented as of this encounter Care Teams Veneer Stock Grader Relationship Specialty Start Date End Date Noreen Hills PCP - General Nurse Practitioner 01/09/19 12/12/21 SEAN Haley PUMP STATION OPERATOR [address] [place] [address] Noreen Hills Assigned PCP 06/16/18 SEAN Haley PUMP STATION OPERATOR [address] [place] [address] Kalyan Galvan Personal Advocate & 08/08/19 Liaison (PAL) Lashae Trevino Pharmacist Pharmacist 10/14/19 12/01/20 Kiran, [facility] [address] [place], [place] [id number] documented as of this encounter
--- OUTSIDE RECORDS SUMMARY | 2022-01-17 22:06 | XMS_ITS | Encounter Summary ---
:1965 Author Organization [facility] Address [address] [place] [address] Care Team Providers Name Role Phone Noreen Hills APRN SIDE TRIMMER Unavailable [phone] Noreen Hills APRN SIDE TRIMMER Primary Care Provider [phone] Kalyan Galvan Unavailable Unavailable Lashae Trevino [facility] Unavailable [phone] Reason for Visit Diagnostic Imaging MRI (Routine) - Closed Specialty Diagnoses / Procedures Referred By Contact Refer red To Contact Radiology. Diagnoses Pain of left lower leg Rodrigo Man Mri Procedures MR Lumbar Spine w/o Contrast MR Lumbar Spine w/o & w Contrast MIKAYLA Lacy [address] [facility] [place] [id number] [place] [id number] Referral ID Status Reason Start Date Expiration Date Visits Requ ested Visits Authorized [id number] Closed 10/07/2019 10/06/2020 1 1 Encounter Details Date Type Department Care Team Description 10/21/2019 Hospital Encounter [facility] Alejo Donovan, Pain of left lower [place] [facility] Rodrigo Lacy leg [address] [place] [address] [id number] [place] [address] [place] [address] Social History Tobacco Use Types Packs/Day Years [...] How often do you attend hindu or taoism Patient refused 08/08/2019 services? Do you belong [...] goal < 7% (H) fluticasone (FLONASE) 50 Welches 1-2 sprays 16 g 11 08/08 MCG/ACT [...] diabetes, HbA1c goal < directed. 7% (H) cyclobenzaprine Take 1 tablet (10 90 tablet 11 08/08/2019 (FLEXERIL) 10 MG mg) by mouth 3 tabletIndications: times daily as Fibromyalgia needed for muscle spasms DULoxetine (CYMBALTA) 30 Take 1 capsule (30 [...] 8 type ounces of fluid. SUMAtriptan (IMITREX) 25 TAKE 1 TO 2 TABLETS 18 tablet 5 10/28/2019 MG tabletIndications: BY MOUTH ONCE FOR Migraine without status MIGRAINE. OK TO migrainosus, not REPEAT X 1 AFTER intractable, unspecified 2HOURS. MAX migraine type 12TAB/25DAYS INS topiramate (TOPAMAX) 50 Take 1 [...] FOR SLEEP documented as of this encounter Plan of Treatment Not on filedocumented as of this encounter Procedures Procedure Name Priority Date/Time Associated Diagnosis Comme nts MR LUMBAR SPINE W/O Routine 10/21/2019 4:24 PM Pain of left lo wer Results for this CONTRAST CDT leg procedure are i n the results section. documented in this encounter Results MR Lumbar Spine w/o Contrast (10/21/2019 4:24 PM CDT) Anatomical Region Laterality Modality Spine, SUBRAD MR NEURO, UMP MR SPINE, RAD MR Magnetic Resonance Specimen (Source) Anatomical Location Collection Method / Collectio n Time Received Time / Laterality Volume Impressions 10/21/2019 4:49 PM CDT IMPRESSION: ?? 1. Postoperative change of L5-S1 fusion/ laminectomy. 2. Postoperative change of left sacroili ac joint fusion. 3. No high-grade spinal canal or foramin al stenosis. SUSY MAXWELL MD Narrative 10/21/2019 4:49 PM CDT MRI LUMBAR SPINE WITHOUT CONTRAST ?? 10/21/2019 4:24 PM HISTORY: Back pain, > 6 weeks conservati ve treatment, persistent symptoms. Pain of left lower leg. TECHNIQUE: Multiplanar multisequence MRI of the lumbar spine without contrast. COMPARISON: Lumbar spine CT 01/08/2015. FINDINGS: Postoperative change of L5-S1 fusion and laminectomy are demonstrated. Contiguous marrow is present across the fused level, consistent with solid fusion. Postoperative change of le ft sacroiliac joint fusion are demonstrated. Alignment is within normal limits. No focal concerning bone marrow signal abnormality. Conus me dullaris and cauda equina are unremarkable. Conus medullaris terminate s at the level of the L1-2 disc. Paraspinal soft tissues are unrema rkable. T2 hyperintense 4 mm lesion within the posterior cortex of th e right kidney is incompletely characterized, statistically likely hira gn. Segmental Analysis: T12-L1: ??Mild disc height loss. No nicole iation. Normal facet joints. No foraminal or spinal canal stenosis. L1-L2: ??Mild disc height loss. No herni ation. Normal facet joints. No foraminal or spinal canal stenosis. ?? L2-L3: ??Mild disc height loss. No herni ation. Normal facet joints. No foraminal or spinal canal stenosis. ?? L3-L4: ??Mild disc height loss. No herni ation. Normal facet joints. No foraminal or spinal canal stenosis. ?? L4-L5: ??Mild disc height loss. No herni ation. Mild bilateral facet arthropathy. No foraminal or spinal marisol l stenosis. ?? L5-S1: ??Postoperative level. No foramin al or spinal canal stenosis. Probable small MR correlate for the left lateral recess calcified finding on prior CT near the traversing left S1 nerve root (series 5 image 39). Procedure Note Susy Maxwell MD - 10/21/2019F ormatting of this note might be different from the original. MRI LUMBAR SPINE WITHOUT CONTRAST 020 4:24 PM HISTORY: Back pain, > 6 weeks conservati ve treatment, persistent symptoms. Pain of left lower leg. TECHNIQUE: Multiplanar multisequence MRI of the lumbar spine without contrast. COMPARISON: Lumbar spine CT 01/08/2015. FINDINGS: Postoperative change of L5-S1 fusion and laminectomy are demonstrated. Contiguous marrow is present across the fused level, consistent with solid fusion. Postoperative change of le ft sacroiliac joint fusion are demonstrated. Alignment is within normal limits. No focal concerning bone marrow signal abnormality. Conus me dullaris and cauda equina are unremarkable. Conus medullaris terminate s at the level of the L1-2 disc. Paraspinal soft tissues are unrema rkable. T2 hyperintense 4 mm lesion within the posterior cortex of th e right kidney is incompletely characterized, statistically likely hira gn. Segmental Analysis: T12-L1: Mild disc height loss. No hernia tion. Normal facet joints. No foraminal or spinal canal stenosis. L1-L2: Mild disc height loss. No herniat ion. Normal facet joints. No foraminal or spinal canal stenosis. L2-L3: Mild disc height loss. No herniat ion. Normal facet joints. No foraminal or spinal canal stenosis. L3-L4: Mild disc height loss. No herniat ion. Normal facet joints. No foraminal or spinal canal stenosis. L4-L5: Mild disc height loss. No herniat ion. Mild bilateral facet arthropathy. No foraminal or spinal marisol l stenosis. L5-S1: Postoperative level. No foraminal or spinal canal stenosis. Probable small MR correlate for the left lateral recess calcified finding on prior CT near the traversing left S1 nerve root (series 5 image 39). IMPRESSION: 1. Postoperative change of L5-S1 fusion/ laminectomy. 2. Postoperative change of left sacroili ac joint fusion. 3. No high-grade spinal canal or foramin al stenosis. SUSY MAXWELL MD Rodrigo Man PA-C IMMel MRI ORDERABLES documented in this encounter Visit Diagnoses Diagnosis Pain of left lower leg Pain in limb documented in this encounter Additional Health Concerns Assessment Noted Time PHQ-9 Depression Total Score: 9 08/09/2019 7:03 AM RESEARCH/PROGRAM DIRECTOR documented as of this encounter Care Teams Glue Mixer Relationship Specialty Start Date End Date Noreen Hills PCP - General Nurse Practitioner 01/09/19 12/12/21 SEAN Haley SIDE TRIMMER [address] [facility] [place] [phone] Noreen Hills Assigned PCP 06/16/18 SEAN Haley SIDE TRIMMER [address] [facility] [place] [phone] Kalyan Galvan Personal Advocate & 08/08/19 Liaison (PAL) Lashae Trevino Pharmacist Pharmacist 10/14/19 12/01/20 Kiran [facility] [address] [facility] [place] [id number] documented as of this encounter
--- OUTSIDE RECORDS SUMMARY | 2022-01-17 22:06 | XMS_ITS | Encounter Summary ---
:1965 Author Organization [place] Address [address] [place] [address] Care Team Providers Name Role Phone Noreen Hills APRN, CNP Unavailable [phone] Noreen Hills APRN, CNP Primary Care Provider [phone] Kalyan Galvan Unavailable Unavailable Reason for Visit Reason Onset Date Comments Pain 10/07/2019 left leg pain Consultation (Routine) - Closed Specialty Diagnoses / Procedures Referred By Contact Refer red To Contact Orthopedics and Sports Diagnoses Pain of left lower leg Noreen Hills [facility] SEAN Haley CNP [facility] [address] [place] [address]?? [facility] [address] [place] [address] [address] [place] [address] Phone: Fax: Referral ID Status Reason Start Date Expiration Date Visits Requ ested Visits Authorized [id number] Closed 09/30/2019 09/29/2020 1 1 Encounter Details Date Type Department Care Team Description 10/07/2019 Virtual Visit [facility] Noreen Hills APRN PHOTOGRAPH MOUNTER [address] [place] [address] [place] [id number] Pain of left lower [place] [facility] Rodrigo Man PA-C [address] [id number] leg Clinic [address] [address] Social History Tobacco Use Types Packs/Day Years [...] 08/08/2019 relatives? How often do you attend moravian or nondenominational Patient refused 08/08/2019 services? Do you belong to any clubs or organizations such as No 08/08/2019 moravian groups, unions, fraternal or athletic groups, or [...] been in contact with No / Unsure 10/07/2019 10:17 AM CDT someone who was confirmed or suspected to have Coronavirus / COVID-19? documented as of this encounter Progress Notes Rodrigo Man PA-C - 10/07/2019 11:00 AM CDT NEUROSURGERY PHONE CONSULT NOTE DATE OF VISIT: 10/07/2019 SUBJECTIVE: Megan Choi is a pleasant 54 year old female who I spoke to on the phone today for consultation on low back back, but more pressing is her left leg pain. She is referred to the Neurosurgery Clinic by Ms. Jeana NP, in [place]. Pertinent medical history consists of multiple lumbar spine surgeries, a cervical spine surgery and left foot surgery. She cannot recall where they wee performed or by who. Today, Ms. Choi reports an 18-month history of exacerbating symptoms. She describes constant, sharp, aching and burning pain that initiates in the sacral region and radiates distally in what sounds like the left S1 distribution. This pain is accompanied by intermittent paresthesias and numbness in both of her feet. Prolonged walking and standing aggravate the symptoms, while alleviation is obtained by ice, NSAIDS and rest. No mechanism of injury such as trauma or a fall is associated with the onset of the pain. There are no bowel or bladder changes. She denies saddle anesthesia. She denies changes in gait, instability, or falling episodes. There has been no significant change in her handwritingor hand dexterity. The patient has not participated in any recent conservative therapies. Current Outpatient Medications: ??? ASPIRIN PO, Take 81 mg by mouth daily., Disp: , Rfl: ??? blood glucose (ACCU-CHEK JANICE) test strip, 1 strip by In Vitro route 2 times daily, Disp: 100 strip, Rfl: prn ??? blood glucose monitoring (ACCU-CHEK MULTICLIX) lancets, Use to test blood sugar 2 times daily oras directed., Disp: 1 Box, Rfl: 11 ??? blood glucose monitoring (ONE TOUCH DELICA) lancets, Use to test blood sugars 1 times daily or as directed., Disp: 1 Box, Rfl: prn ??? cyclobenzaprine (FLEXERIL) 10 MG tablet, Take 1 tablet (10 mg) by mouth 3 times daily as needed for muscle spasms, Disp: 90 tablet, Rfl: 11 ??? DULoxetine (CYMBALTA) 30 MG capsule, Take 1 capsule (30 mg) by mouth daily, Disp: 90 capsule, Rfl: 1 ??? fluticasone (FLONASE) 50 MCG/ACT nasal spray, Friend 1-2 sprays into both nostrils daily, Disp: 16 g, Rfl: 11 ??? metFORMIN (GLUCOPHAGE) 500 MG tablet, Take 2 tablets (1,000 mg) by mouth 2 times daily (with meals) TAKE 1 TABLET BY MOUTH TWICE A DAY WITH MEALS, Disp: 180 tablet, Rfl: 3 ??? multivitamin, therapeutic with minerals (MULTI-VITAMIN) TABS, Take 1 tablet by mouth daily, Disp: , Rfl: ??? omeprazole (PRILOSEC) [address] capsule, Take 2 capsules (40 mg) by mouth daily, Disp: 180 capsule, Rfl: 3 ??? psyllium (METAMUCIL) 0.52 g capsule, Take 1-2 capsules by mouth daily Each capsule should be administered individually with 8 ounces of fluid., Disp: 200 capsule, Rfl: 3 ??? simvastatin (ZOCOR) 20 MG tablet, Take 1 tab daily, Disp: 90 tablet, Rfl: 3 ??? SUMAtriptan (IMITREX) 25 MG tablet, TAKE 1 TO 2 TABLETS BY MOUTH ONCE FOR MIGRAINE. OK TO REPEATX 1 AFTER 2HOURS. MAX 12TAB/25DAYS INS, Disp: 18 tablet, Rfl: 5 ??? topiramate (TOPAMAX) 50 MG tablet, Take 1 tablet (50 mg) by mouth 2 times daily Take 1 tab by mouth 2 times daily, Disp: 180 tablet, Rfl: 3 ??? zolpidem (AMBIEN) 5 MG tablet, TAKE ONE TABLET BY MOUTH NIGHTLY AT BEDTIME NEEDED FOR SLEEP, Disp: 60 tablet, Rfl: 5 ? ? JAY/ARB NOT PRESCRIBED, INTENTIONAL,, 1 each daily JAY & ARB not prescribed due to not needed (Patient not taking: Reported on 08/21/2017), Disp: , Rfl: ??? Acetaminophen (TYLENOL PO), Take 1,000 mg by mouth daily as needed for mild pain or fever, Disp:, Rfl: ??? IBUPROFEN PO, Take 800 mg by mouth daily as needed for moderate pain, Disp: , Rfl: Allergies Allergen Reactions ??? Erythromycin Rash Past Medical History: Diagnosis Date ??? Aftercare following surgery of the musculoskeletal system 07/03/2016 ??? Arthritis ??? Diabetes mellitus (H) Type 2 ??? Dvt femoral (deep venous thrombosis) (H) 04/17 post surgical, stopped coumadin 01/16 ??? IFG (impaired fasting glucose) 10/03/2015 ROS: 10 point review of symptoms are negative other than the symptoms noted above in the HPI. Family History has been reviewed with the patient, there are no pertinent findings to presenting concern. Past Surgical History: Procedure Laterality Date ??? C SPINAL FUSION,ANT,EA ADNL LEVEL 2004 L5, S1, Repeated in 2005 ??? C SPINAL FUSION,ANT,EA ADNL LEVEL 2006 SI joints ??? C SPINAL FUSION,ANT,EA ADNL LEVEL 2000 C5-C7 fused ??? SECTION ??? ENT SURGERY T&A < 10 y/o ??? REPAIR TENDON PERONEAL Left 06/08/2016 Procedure: REPAIR TENDON PERONEAL; Surgeon: Agatha Null, DPM, Pod; Location: OR Social History Tobacco Use ??? Smoking status: Never Smoker ??? Smokeless tobacco: Never Used Substance Use Topics ??? Alcohol use: Yes Frequency: Monthly or less Drinks per session: 1 or 2 Binge frequency: Never Comment: Rare ??? Drug use: No OBJECTIVE: LMP 10/30/2011 There is no height or weight on file to calculate BMI. ASSESSMENT/PLAN: Megan Choi is a 54 year old female who I spoke to for consultation on low back back, but more pressing, is her left leg pain. The patient does not have any imaging to review today. On exam, subjectively, the patient is noted to have constant pain in what sounds like the S1 distribution with intermittent bilateral foot paresthesia and numbness. The patient has not attempted conservative management. We do feel that it would be in her best interest to obtain a lumbar MRI W/WO to further assess for any concerning pathology. Once we are able to thoroughly study the images we will simply call her on the phone with the number she has provided to further discuss possible surgical interventions or otherconservative therapies. In the event that patient's symptoms worsen or change we would like to see her sooner. We also discussed signs of a worsening problem that she should seek being evaluated. Respectfully, ALBANIA Lee PA-C Exam, imaging, and plan reviewed by Dr. Rosales. 22 minutes documented in this encounter Plan of Treatment Not on filedocumented as of this encounter Visit Diagnoses Diagnosis Pain of left lower leg Pain in limb documented in this encounter Additional Health Concerns Assessment Noted Time PHQ-9 Depression Total Score: 9 08/09/2019 7:03 AM INDIAN BLANKET WEAVER documented as of this encounter Care Teams Financial Secretary Relationship Specialty Start Date End Date Noreen Hills PCP - General Nurse Practitioner 01/09/19 12/12/21 SEAN Haley PHOTOGRAPH MOUNTER [address] [facility] [place] [address] Noreen Hills Assigned PCP 06/16/18 SEAN Haley PHOTOGRAPH MOUNTER [address] [facility] [place] [address] Kalyan Galvan Personal Advocate & 08/08/19 Liaison (PAL) documented as of this encounter
--- OUTSIDE RECORDS SUMMARY | 2022-01-17 22:06 | XMS_ITS | Encounter Summary ---
:1965 Author Organization [facility] Address [address] [place] [address] Care Team Providers Name Role Phone Noreen Hills APRN CONTROL ROOM SUPERVISOR Unavailable [phone] Noreen Hills APRN CONTROL ROOM SUPERVISOR Primary Care Provider [phone] Kalyan Galvan Unavailable Unavailable Lashae Trevino [facility] Unavailable [phone] Encounter Details Date Type Department Care Team Description 10/16/2019 Travel Social History Tobacco Use Types Packs/Day [...] 08/08/2019 relatives? How often do you attend gnosticist or roman catholic Patient refused 08/08/2019 services? Do you belong to any clubs or organizations such as No 08/08/2019 gnosticist groups, unions, fraternal or athletic groups, or [...] been in contact with No / Unsure 10/16/2019 4:24 PM CDT someone who was confirmed or suspected to have Coronavirus / COVID-19? documented as of this encounter Plan of Treatment Not on filedocumented as of this encounter Visit Diagnoses Not on filedocumented in this encounter Additional Health Concerns Assessment Noted Time PHQ-9 Depression Total Score: 9 08/09/2019 7:03 AM WEB CONTENT EXECUTIVE documented as of this encounter Care Teams Shaper Hand Relationship Specialty Start Date End Date Noreen Hills PCP - General Nurse Practitioner 01/09/19 12/12/21 SEAN Haley CONTROL ROOM SUPERVISOR [address] [facility] [address] [place], [place] [address] Noreen Hills PCP 06/16/18 SEAN Haley CONTROL ROOM SUPERVISOR [address] [place] [address] Kalyan Galvan Personal Advocate & 08/08/19 Liaison (PAL) Lashae Trevino Pharmacist Pharmacist 10/14/19 [facility]01[facility] [address] [facility] [address] [place], [place] [address] documented as of this encounter
--- OUTSIDE RECORDS SUMMARY | 2022-01-17 22:06 | XMS_ITS | Encounter Summary ---
:1965 Author Organization [facility] Address [address] [place] [address] Care Team Providers Name Role Phone Noreen Hills APRN BELL TIER Unavailable [phone] Noreen Hills APRN, CNP Primary Care Provider [phone] Kalyan Galvan Unavailable Unavailable Encounter Details Date Type Department Care Team Description 10/07/2019 Travel Social History Tobacco Use Types Packs/Day [...] 08/08/2019 relatives? How often do you attend congregational or judaism Patient refused 08/08/2019 services? Do you belong to any clubs or organizations such as No 08/08/2019 congregational groups, unions, fraternal or athletic groups, or [...] Depression Total Score: 9 08/09/2019 7:03 AM EVENTS ASSISTANT documented as of this encounter Care Teams Publicity Consultant Relationship Specialty Start Date End Date Noreen Hills PCP - General Nurse Practitioner 01/09/19 12/12/21 SEAN Haley BELL TIER [address] [facility] [place] [address] Noreen Hills Assigned PCP 06/16/18 SEAN Haley BELL TIER [address] [facility] [place] [address] Kalyan Galvan Personal Advocate & 08/08/19 Liaison (PAL) documented as of this encounter
--- OUTSIDE RECORDS SUMMARY | 2022-01-17 22:06 | XMS_ITS | Encounter Summary ---
:1965 Author Organization [facility] Address [address] [place] [address] Care Team Providers Name Role Phone Noreen Hills APRN GREEN BUILDING DESIGN SPECIALIST Unavailable [phone] Noreen Hills APRN GREEN BUILDING DESIGN SPECIALIST Primary Care Provider [phone] Kalyan Galvan Unavailable Unavailable Lashae Trevino [facility] Unavailable [phone] Encounter Details Date Type Department Care Team Description 10/14/2019 Travel Social History Tobacco Use Types Packs/Day [...] 08/08/2019 relatives? How often do you attend restorationism or faith Patient refused 08/08/2019 services? Do you belong to any clubs or organizations such as No 08/08/2019 restorationism groups, unions, fraternal or athletic groups, or [...] been in contact with No / Unsure 10/14/2019 8:45 AM CDT someone who was confirmed or suspected to have Coronavirus / COVID-19? documented as of this encounter Plan of Treatment Not on filedocumented as of this encounter Visit Diagnoses Not on filedocumented in this encounter Additional Health Concerns Assessment Noted Time PHQ-9 Depression Total Score: 9 08/09/2019 7:03 AM PATTERN ILLUSTRATOR documented as of this encounter Care Teams Vessel Operator Relationship Specialty Start Date End Date Noreen Hills PCP - General Nurse Practitioner 01/09/19 12/12/21 SEAN Haley GREEN BUILDING DESIGN SPECIALIST [address] [facility] [address] [place], [place] [address] Noreen Hills PCP 06/16/18 SEAN Haley GREEN BUILDING DESIGN SPECIALIST [address] [facility] [place] [address] Kalyan Galvan Personal Advocate & 08/08/19 Liaison (PAL) Lashae Trevino Pharmacist Pharmacist 10/14/19 [facility]01[facility] [address] [facility] [address] [place], [place] [address] documented as of this encounter
--- OUTSIDE RECORDS SUMMARY | 2022-01-17 22:06 | XMS_ITS | Encounter Summary ---
:1965 Author Organization [place] Address [address] [place] [id number] Care Team Providers Name Role Phone Noreen Hills APRN [facility] Unavailable [phone] Noreen Hills APRN [facility] Primary Care Provider [phone] Kalyan Galvan Unavailable Unavailable Lashae Trevino [facility] Unavailable [phone] Reason for Visit Reason Comments Medication Therapy Management Med Therapy Management (Routine) - Closed Specialty Diagnoses / Procedures Referred By Contact Refer red To Contact Pharmacist Diagnoses Dry mouth Noreen Hills APRN [facility] [address] [facility] [place] [address] Referral ID Status Reason Start Date Expiration Date Visits Requ ested Visits Authorized [id number] Closed 09/30/2019 09/29/2020 1 1 Encounter Details Date Type Department Care Team Description 10/14/2019 [facility] [place] Lashae Trevino Medic ation Therapy [facility] Pino Beck [facility] Management Visit [address] [place] [address] [address] [place] [address] (Work) [phone] Social History Tobacco Use Types Packs/Day Years [...] How often do you attend buddhist or church Patient refused 08/08/2019 services? Do you belong to any clubs or organizations such as No 08/08/2019 buddhist groups, unions, fraAdTrib or athletic groups, or school groups? How [...] documented as of this encounter Progress Notes Lashae Trevino, [facility] - 10/14/2019 9:30 AM CDT MTM ENCOUNTER SUBJECTIVE/OBJECTIVE: Megan Choi is a 54 year old female called for an initial visit. She was referred to me from [facility]. Patient consented to a telehealth visit: yes Telemedicine Visit Details Type of service: Telephone visit Start Time: 9:31 AM End Time: 10:47 AM Originating Location (pt. Location): Home Distant Location (provider location): [facility] Mode of Communication: Telephone Chief Complaint: Biggest concern is dry mouth. Also wondering if any medications could be causing insomnia. Allergies/ADRs: Reviewed in [facility] Tobacco: reports that she has never smoked. She has never used smokeless tobacco. Alcohol: Less than 1 beverage / month Caffeine: was caffeine free, drinking diet caffeine pop, maybe 3 a day. Activity: works 4 days a week and on her feet 7h a day. PMH: Reviewed in [facility] Medication Adherence/Access: no issues reported Dry mouth: Teeth, tongue and mouth are very dry. Feels she can only get a few words out with gettingstuck. This is all day and makes it hard for her to work as she needs to socialize with customers ([employer]). Has had issues with this for a long time but she thinks possibilities since started on cyclobenzaprine a while back and was noticeably worse. Has been on going for several years, but significantly worse over the past year. Drinks water constantly. Sometimes difficult to drink out of a straw mouth is so dry. Also has tried mints, ACT lozenges, ACT spray (which she still uses once in a while) but cannot constantly use. See below she does know dry/itchy eyes and constipation if not taking Metamucil. Depression: Current medications include: duloxetine 30 mg 1/day in the morning. Reports mood has been doing fairly well. She has been staying positive even among all be COVID-19 changes. From chart review she has been on Celexa and amitriptyline in the past. PHQ-9 SCORE 06/25/2018 01/02/2019 08/08/2019 PHQ-9 Total Score - - - PHQ-9 Total Score MyChart - - 9 (Mild depression) PHQ-9 Total Score 7 10 9 Insomnia: Currently taking zolpidem 5 mg at bedtime as needed (usually during the weekday). She cannot use it every day as her insurance limits her 15 tablets for every 25 days. She is having issues falling asleep and staying asleep. has reported pt does not snore. Patient notes has discussed sleep study but has not completed yet. She has tried melatonin [id number] but was not effective. She is not sure if she wants to try anything else. Denies nighttime awakening due to hunger or nocturia. Does sometimes wake up due to pain but not always. Fibromyalgia/migraine: Taking cyclobenzaprine 1 tablet BID (reduced from TID), topiramate 50 mg BID (reduced from 100 mg BID), ibuprofen 800 mg daily, Tylenol as needed. Using Imitrex rarely. No longertaking riboflavin as she cannot purchase this has been out of stock. Headaches every day at 12-1pm every day and cannot think of why this is the case. Patient reports topiramate was started to help with the migraines but she did not notice an improvement. Along with tramadol she is also experiencing ataste caused taste perversion which she notes has improved since reduction of cyclobenzaprine and topiramate. She does note her pain has been on the left side and suspects it may be related to her spine and hasconsulted a specialist. She notes that the pain is worse during the day as she standing all day and then the pain radiates down more of a nerve and tingling sensation. Pain does not seem to be spastic or a muscle spasm related. GERD: Current medications include: Prilosec (omeprazole) 20 mg twice daily. Pt c/o no current symptoms. Patient feels that current regimen is effective. Supplements: Taking vitamin D 2000 twice a day. No longer taking riboflavin for multivitamin due to difficulty of purchasing [id number] as many stores are out of stock. Has been on higher maintenance dose of vitamin D for over a year. No concerns. Lab Results Component Value Date VITDT 49 08/08/2019 VITDT 35 06/12/2017 VITDT 33 02/17/2017 VITDT 25 09/25/2016 VITDT 36 09/30/2015 Hyperlipidemia: Current therapy includes simvastatin 20 mg at time. Patient does have history of pain but does not report any statin therapy has been on this for long time. Liver Function Studies - Recent Labs Lab Test 06/12/17 1255 PROTTOTAL 7.4 ALBUMIN 3.6 BILITOTAL 0.2 ALKPHOS 194* AST 25 ALT 31 Recent Labs Lab Test 08/08/19 1017 04/09/18 1009 08/10/14 0856 06/08/14 0840 CHOL 180 175 < > 153 197 HDL 46* 45* < > 61 57 LDL 103* 87 < > 76 125 TRIG 153* 213* < > 79 77 CHOLHDLRATIO -- -- -- 2.5 3.5 < > = values in this interval not displayed. Diabetes: Pt currently taking metformin 1000 twice a day. Pt is not experiencing side effects. SMBG: rarely. Frequency of hypoglycemia? never. Symptoms of low blood sugar - none. Symptoms of high blood sugar? none Eye exam: up to date Foot exam: up to date Aspirin: Taking 81mg daily and denies side effects Diet: having taste perversion. Exercise: Would like to work on walking more. ACEi/ARB: No. Lab Results Component Value Date UMALCR 7.14 08/08/2019 Lab Results Component Value Date A1C 6.2 08/08/2019 A1C 6.2 01/02/2019 A1C 6.1 04/09/2018 A1C 6.7 06/12/2017 A1C 5.9 09/25/2016 Obesity: Current medication(s) include: Topiramate 50 mg twice a day. Pelvis was started for headache prevention. She had previously discussed with PCP and agent for weight loss but has not followed upon this since. She knows she needs to work on weight loss. Diet/Eating Habits: Patient reports she reports poor appetite even prior to the taste perversion with topiramate therapy she denies ever having an issue with grazing. She notes her main issue is makingpoor choices of types of food to eat. For instance if it has been a long day she will grab unhealthyfood option just due to time.. Exercise: Patient reports minimal and would like to go on more walks. But having issues left side. Weight trend: Wt Readings from Last 10 Encounters: 08/08/19 193 lb 14.4 oz (88 kg) 01/21/19 186 lb (84.4 kg) 01/02/19 186 lb (84.4 kg) 11/13/18 185 lb (83.9 kg) 08/29/18 177 lb (80.3 kg) 07/25/18 181 lb (82.1 kg) 06/25/18 181 lb 1.6 oz (82.1 kg) 04/09/18 185 lb 6.4 oz (84.1 kg) 06/27/17 200 lb (90.7 kg) 06/12/17 200 lb (90.7 kg) Allergic rhinitis: Current medications include loratadine 10 mg once daily and fluticasone nasal spray PRN spray(s) rarely. Primary symptoms are itchy/watery eyes. Pt feels that current therapy is somewhat effective. She reports her itchy dry eyes have occurred since her LASIK surgery many years ago. Constipation: Taking Metamucil daily which helps keep her regular. She notes if she does not take this then she will feel more constipated. No other issues reported today. Today's Vitals: LMP 10/30/2011 Telemedicine. ASSESSMENT: Medication Adherence: good, needs improvement - see below Dry mouth: Needs improvement. Reasonable to rule out medication cause. From current agents and patient report suspect cyclobenzaprine as cause. Addition of topiramate likely contributed to worsening symptoms. See below regarding possible agents. Topiramate 1-3% Loratadine 2-4% Zolpidem 3% Duloxetine 11-14%, dose related Cyclobenzaprine 6-32% Depression: Stable. See above for consider changing therapy for dual efficacy for Migraine and pain. Insomnia: Unchanged. Insomnia seems ongoing, unlikely from current medication. duloxetine is taking in the AM and symptoms prior to start. Suggest a sleep study. Fibromyalgia/migraine: unchanged. Not tolerating could consider venlafaxine instead. GERD: Stable. Supplements: stable. Type 2 Diabetes: Stable. Patient is meeting A1c goal of < 7%. Hyperlipidemia: Stable. Pt is on moderate intensity statin which is indicated based on 2019 ACC/AHA guidelines for lipid management. Obesity: unchanged. May benefit from change in therapy. Given on antidepressant therapy, avoid locaserin and Contrave. May consider GLP-1 since T2DM dx as well. Phentermine may worsen insomnia. Allergic rhinitis: Stable. May consider artifical tears or if ineffective, then fish oil. Constipation: stable. PLAN: 1. Decrease the cyclobenzaprine 10 mg daily for 1 week, then trial off. May use cyclobenzaprine if pain is muscle spasms. 2. PCP to consider discussion regarding switching duloxetine to venlafaxine for depression and migraine relief. Dosing to ~150 mg will also provide NE activity and may benefit pain. I spent 46 minutes with this patient today. All changes were made via collaborative practice agreement with Noreen Hills. A copy of the visit note was provided to the patient's primary care provider. Will follow up in 10/27 with PCP. MTNita PRN. The patient declined a summary of these recommendations. Lashae Trevino PharmD Medication Therapy Management Pharmacist Pager#: [phone] documented in this encounter Plan of Treatment Not on filedocumented as of this encounter Visit Diagnoses Diagnosis Dry mouth - Primary Disturbance of salivary secretion Gastroesophageal reflux disease without esophagitis Esophageal reflux Migraine without status migrainosus, not intractable, unspecified migraine type Persistent insomnia Persistent disorder of initiating or martínez ntaining sleep Hyperlipidemia LDL goal <100 Other and unspecified hyperlipidemia Allergic rhinitis, unspecified seasonali ty, unspecified trigger Fibromyalgia Mylagia and myositis, unspecified Moderate episode of recurrent major depr essive disorder (H) Constipation, unspecified constipation t ype Takes dietary supplements Morbid obesity (H) Morbid obesity Type 2 diabetes mellitus with complicati on, without long-term current use of insulin (H) documented in this encounter Additional Health Concerns Assessment Noted Time PHQ-9 Depression Total Score: 9 08/09/2019 7:03 AM CORPORATE STAFF ACCOUNTANT documented as of this encounter Care Teams Liquor Clerk Relationship Specialty Start Date End Date Noreen Hills PCP - General Nurse Practitioner 01/09/19 12/12/21 SEAN Haley NEUROSURGEON [address] [facility] [place] [address] Noreen Hills Assigned PCP 06/16/18 SEAN Haley NEUROSURGEON [address] [facility] [place] [phone] Kalyan Galvan Personal Advocate & 08/08/19 Liaison (PAL) Lashae Trevino Pharmacist Pharmacist 10/14/19 12/01/20 [facility] [address] [facility] [place] [phone] documented as of this encounter
--- OUTSIDE RECORDS SUMMARY | 2022-01-17 22:06 | XMS_ITS | Encounter Summary ---
:1965 Author Organization [place] Address [address] [place] [address] Care Team Providers Name Role Phone Noreen Hills APRN TECHNICAL COORDINATOR Unavailable [phone] Noreen Hills APRN, CNP Primary Care Provider [phone] Kalyan Galvan Unavailable Unavailable Encounter Details Date Type Department Care Team Description 10/02/2019 Travel Social History Tobacco Use Types Packs/Day [...] How often do you attend advent or taoism Patient refused 08/08/2019 services? Do you belong to any clubs or organizations such as No 08/08/2019 advent groups, unions, fraternal or athletic groups, or [...] have you been in contact with Yes 10/02/2019 3:48 PM CDT someone who was confirmed or suspected to have Coronavirus / COVID-19? documented as of this encounter Plan of Treatment Not on filedocumented as of this encounter Visit Diagnoses Not on filedocumented in this encounter Additional Health Concerns Assessment Noted Time PHQ-9 Depression Total Score: 9 08/09/2019 7:03 AM PARTY DIRECTOR documented as of this encounter Care Teams Chief Engineer Relationship Specialty Start Date End Date Noreen Hills PCP - General Nurse Practitioner 01/09/19 12/12/21 SEAN Haley TECHNICAL COORDINATOR [address] [facility] [place] [address] Noreen Hills Assigned PCP 06/16/18 SEAN Haley TECHNICAL COORDINATOR [address] [facility] [place] [address] Kalyan Galvan Personal Advocate & 08/08/19 Liaison (PAL) documented as of this encounter
--- OUTSIDE RECORDS SUMMARY | 2022-01-17 22:07 | XMS_ITS | Encounter Summary ---
:1965 Author Organization [place] Address [address] [place] [address] Care Team Providers Name Role Phone Noreen Hills APRN COTTON STRIPPER Unavailable [phone] Noreen Hills APRN, CNP Primary Care Provider [phone] Kalyan Galvan Unavailable Unavailable Lashae Trevino [facility] Unavailable [phone] Eduardo Sharma MD Unavailable Rios Monteiro MD Unavailable Marcelo Artis PA-C Unavailable [phone] Rodrigo Man PA-C Unavailable [phone] Reason for Visit Reason Onset Date Comments Refill Request 08/08/2019 DULoxetine (CYMBALTA ) 30 MG capsule Encounter Details Date Type Department Care Team Description 08/08/[address] [facility] Noreen Hills Req u[facility] Pino Haley APRN CNP (DULoxetine (CYMBALTA) [address] [place] [address] [facility] 30 MG capsule) [facility] [address] [place] [address] [place] [address] [phone] Social History Tobacco Use Types Packs/Day Years [...] How often do you attend buddhist or worship Patient refused 08/08/2019 services? Do [...] Telephone Encounter - Radha Manning RN - 08/13/2019 10:02 AM CST Noreen: I spoke with the Pt. The Pt has been taking 1, 30 mg capsule, once per day. She does not want to go up to 60 mg. Yasmin sent this in for her. Radha Manning RN [facility] -- Triage Nurse ANGE TROUBLE SHOOTER Telephone Encounter - Noreen Hills APRN CNP - 08/11/2019 9:41 AM EXCHANGE TROUBLE SHOOTER Please verify that she was previously taking 1 tab twice a day. If so, please switch it to 1, 60mg tab, once per day. Pls notify her of the change. ANGE TROUBLE SHOOTER Telephone Encounter - Gayathri Mcallister RN - 08/11/2019 9:38 AM CST Please review sig for duloxetine, hydrochlorothiazide and metformin ( per review of last office visit 2000 mg daily of metformin, I am not sure about Duloxetine sig and dispense amount, Thank you) Gayathri Mcallister RN Message handled by Nurse Triage. ANGE TROUBLE SHOOTER Telephone Encounter - Kartik Javier - 08/08/2019 5:46 PM CST Also Review Rx directions for Metformin hydrochloride 500 mg. Pharmacy is requesting clarification. ANGE TROUBLE SHOOTER Telephone Encounter - Kartik Javier - 08/08/2019 2:39 PM CST Script Clarification: Rx has two sets of directions. Please send new Rx with the Proper Directions. Thanks. ANGE TROUBLE SHOOTER documented in this encounter Plan of Treatment Not on filedocumented as of this encounter Visit Diagnoses Diagnosis Fibromyalgia Mylagia and myositis, unspecified documented in this encounter Additional Health Concerns Infection Onset Date Last Indicated Resolved Time Rule Out COVID-19 08/25/2020 08/25/2020 08/26/2020 3:2 3 PM CDT Assessment Noted Time PHQ-9 Depression Total Score: 9 08/09/2019 7:03 AM EXCHANGE TROUBLE SHOOTER documented as of this encounter Care Teams Manager Dialysis Relationship Specialty Start Date End Date Noreen Hills PCP - General Nurse Practitioner 01/09/19 12/12/21 SEAN Haley COTTON STRIPPER [address] [facility] [place] [address] Noreen Hills Assigned PCP 06/16/18 SEAN Haley COTTON STRIPPER [address] [facility] [place] [phone] Kalyan Galvan Personal Advocate & 08/08/19 Liaison (PAL) Lashae Trevino Pharmacist Pharmacist 10/14/19 12/01/20 [facility] [address] [facility] [place] [phone] Eduardo Sharma MD Assigned Sleep Provider 04/02/20 05/07/21 [address] [facility] [address] [place], [place] [address] Rios Monteiro MD Assigned Musculoskeletal 04/02/20 08/24/20 [id number] [facility] [place], [place] [id number] Marcelo Artis Assigned Musculoskeletal 08/25/20 08/20/21 MIKAYLA Nuno Provider [address] [place], [place] [id number] Rodrigo Man Assigned Surgical 08/25/2011/27 MIKAYLA Lacy Provider [address] [facility] [address] [place] [id number] documented as of this encounter
--- OUTSIDE RECORDS SUMMARY | 2022-01-17 22:07 | XMS_ITS | Encounter Summary ---
:1965 Author Organization [place] Address [address] [place] [address] Care Team Providers Name Role Phone Noreen Hills APRN, CNP Unavailable [phone] Noreen Hills APRN, CNP Primary Care Provider [phone] Reason for Visit Reason Comments Medication Refill topiramide Encounter Details Date Type Department Care Team Description 08/04/2019 Refill [facility] Noreen Hills Medication Refill Clinic Pino Haley APRN CNP (topiramide) [address] [place] [address] [facility] [address] [place] [address] [place] [id number] [phone] Social History Tobacco Use Types Packs/Day Years [...] 08/08/2019 relatives? How often do you attend uatsdin or zoroastrianism Patient refused 08/08/2019 services? Do you belong to any clubs or organizations such as No 08/08/2019 uatsdin groups, unions, fraternal or athletic groups, or [...] or getting things needed for daily living? Sex Assigned at Date Recorded Not on file documented as of this encounter Miscellaneous Notes Telephone Encounter - Janet Salas RN - 08/05/2019 11:13 AM CST PCP, Routing refill request to provider for review/approval because: Labs not current: Failed - Normal CBC on file in past 26 months Failed - Normal ALT or AST on file in past 26 months Failed - Normal platelet count on file in past 26 months Janice Jaeger RN S MARKET LEADER Telephone Encounter - Dania Chappell - 08/04/2019 7:27 AM CST Requested Prescriptions Pending Prescriptions Disp Refills ??? topiramate (TOPAMAX) 50 MG tablet [Pharmacy Med Name: TOPIRAMATE 50 MG TABLET] 180 tablet 3 Sig: TAKE 1 TABLET (50 MG) BY MOUTH 2 TIMES DAILY Anti-Seizure Meds Protocol Failed - 08/04/2019 1:48 AM Failed - Review Authorizing provider's last note. Refer to last progress notes: confirm request is for original authorizing provider (cannot be through other providers). Failed - Normal CBC on file in past 26 months Recent Labs Lab Test 09/25/16 1430 WBC 6.4 RBC 3.97 HGB 12.6 HCT 38.1 PLT 229 Failed - Normal ALT or AST on file in past 26 months Recent Labs Lab Test 06/12/17 1255 ALT 31 Recent Labs Lab Test 06/12/17 1255 AST 25 Failed - Normal platelet count on file in past 26 months Recent Labs Lab Test 09/25/16 1430 PLT 229 Passed - Recent (12 mo) or future (30 days) visit within the authorizing provider's specialty Patient has had an office visit with the authorizing provider or a provider within the authorizing providers department within the previous 12 mos or has a future within next 30 days. See Patient Info tab in inbasket, or Choose Columns in Meds & Orders section of the refill encounter. Passed - Medication is active on med list Passed - No active on record Passed - No positive test in last 12 months Last Written Prescription Date: 06/25/2018 Last Fill Quantity: 180, # refills: 3 Last office visit: 01/02/2019 with prescribing provider: 01/02/2019 Future Office Visit: Next 5 appointments (look out 90 days) Aug 08, 2019 9:15 AM SALES MARKET LEADER (Arrive by 8:50 AM) Adult Preventative Visit with Noreen Hills APRN [facility] [address] [place] [address] [address] [facility] [address] S MARKET LEADER documented in this encounter Plan of Treatment Not on filedocumented as of this encounter Visit Diagnoses Diagnosis Migraine without status migrainosus, not intractable, unspecified migraine type Morbid obesity (H) Morbid obesity documented in this encounter Additional Health Concerns Assessment Noted Time PHQ-9 Depression Total Score: 10 01/02/2019 10:18 AM C DT documented as of this encounter Care Teams Transit Department Clerk Relationship Specialty Start Date End Date Noreen Hills APRN YOUTH DIRECTOR PCP - General Nurse Practitioner 01/09/19 12/12/[address] [place] [address] [place] [address] Noreen Hills APRN YOUTH DIRECTOR Assigned PCP 06/16/[address] [place] [address] [place] [address] documented as of this encounter
--- OUTSIDE RECORDS SUMMARY | 2022-01-17 22:07 | XMS_ITS | Encounter Summary ---
:1965 Author Organization [facility] Address [address] [place] [address] Care Team Providers Name Role Phone Noreen Hills APRN, CNP Unavailable [phone] Noreen Hills APRN, CNP Primary Care Provider [phone] Kaylan Galvan Unavailable Unavailable Reason for Referral Consultation (Routine) - Closed Specialty Diagnoses / Procedures Referred By Contact Refer red To Contact Diagnoses Snoring Noreen Hills [facility] [address] [place] [phone] [place] [id number] Referral ID Status Reason Start Date Expiration Date Visits Requ ested Visits Authorized [id number] Closed 08/08/2019 08/07/2020 1 1 ER Reason for Visit Reason Comments Physical Encounter Details Date Type Department Care Team Description 08/08/2019 [facility] Routine ge neral medical examination at a health care facility (Primary Dx); Clinic Pino Haley APRN Moderate episode of recurren t major depressive disorder (H); [address] [facility] Persistent insomnia; [address] [facility]; [address] [facility] Vitamin D deficiency; [place] [phone] [place] [address] Migraine without status migrainosus, not intractable, unspecified migraine type; [phone] Morbid obesity (H); (Work) Snoring; [phone] Type 2 diabetes mellitus with complication, without long-term current use of insulin (H); (Fax) Hyperlipidemia LDL goal <100; Gastroesophagea l reflux disease without esophagitis; Constipation, u nspecified constipation type; Allergic rhinit is, unspecified seasonality, unspecified trigger; Vulvar dystroph y; Dry mouth; Pain of left lo wer leg Social History Tobacco Use Types Packs/Day Years [...] 08/08/2019 relatives? How often do you attend restoration or christianity Patient refused 08/08/2019 services? Do you belong to any clubs or organizations such as No 08/08/2019 restoration groups, unions, fraternal or athletic groups, or [...] on file documented as of this encounter Last Filed Vital Signs Vital Sign Reading Time Taken Comments Blood Pressure 104/62 08/08/2019 8:59 AM OPENER Pulse 84 08/08/2019 8:59 AM OPENER Temperature 36.5 ??C (97.7 ??F) 08/08/2019 8:59 AM OPENER Respiratory Rate 16 08/08/2019 8:59 AM OPENER Oxygen Saturation 97% 08/08/2019 8:59 AM OPENER Inhaled Oxygen Concentration - - Weight 88 kg (193 lb 14.4 oz) 08/08/2019 8:59 AM OPENER Height 157.5 cm (5' 2) 08/08/2019 8:59 AM OPENER Body Mass Index 35.46 08/08/2019 8:59 AM OPENER documented in this encounter Patient Instructions Patient InstructionsChristi Panda MA - 08/08/2019 9:15 AM CST 1. Weight: -Increase metformin to 2000 per day (2 tabs twice a day) -Increase Topamax (still take 1 tab twice a day but I increased the dose of each pill) -Sleep study -Less carbs, more meat, veggies, beans, tofu. -Physical activity 2. Headaches -Sleep study -Increase Topamax 3. Sleep -I'll check into the ambien 4. Left leg: -We will put this on the back burner for now Preventive Health Recommendations Female Ages 50 - 64 Yearly exam: See your health care provider every year in order to o Review health changes. o Discuss preventive care. o Review your medicines if your doctor has prescribed any. ??? Get a Pap test every three years (unless you have an abnormal result and your provider advises testing more often). ??? If you get Pap tests with HPV test, you only need to test every 5 years, unless you have an abnormal result. ??? You do not need a Pap test if your uterus was removed (hysterectomy) and you have not had cancer. ??? You should be tested each year for STDs (sexually transmitted diseases) if you're at risk. ??? Have a mammogram every 1 to 2 years. ??? Have a colonoscopy at age 50, or have a yearly FIT test (stool test). These exams screen for colon cancer. ??? Have a cholesterol test every 5 years, or more often if advised. ??? Have a diabetes test (fasting glucose) every three years. If you are at risk for diabetes, you should have this test more often. ??? If you are at risk for osteoporosis (brittle bone disease), think about having a bone density scan (DEXA). Shots: Get a flu shot each year. Get a tetanus shot every 10 years. Nutrition: ??? Eat at least 5 servings of fruits and vegetables each day. ??? Eat whole-grain bread, whole-wheat pasta and brown rice instead of white grains and rice. ??? Get adequate Calcium and Vitamin D. Lifestyle ??? Exercise at least 150 minutes a week (30 minutes a day, 5 days a week). This will help you control your weight and prevent disease. ??? Limit alcohol to one drink per day. ??? No smoking. ??? Wear sunscreen to prevent skin cancer. ??? See your dentist every six months for an exam and cleaning. ??? See your eye doctor every 1 to 2 years. ER documented in this encounter Progress Notes Noreen Hills APRN CNP - 08/08/2019 9:15 AM CST SUBJECTIVE: CC: Megan Choi is an 54 year old woman who presents for preventive health visit. Healthy Habits: Getting at least 3 servings of Calcium per day: NO Bi-annual eye exam: Yes Dental care twice a year: Yes Sleep apnea or symptoms of sleep apnea: Daytime drowsiness Diet: Regular (no restrictions) Frequency of exercise: None Taking medications regularly: Yes Medication side effects: Muscle aches and Other PHQ-2 Total Score: 2 Additional concerns today: Yes Concerns today: having problems with legs/feet - pain & tingling/numbness - especially when on feet for too long Diabetes follow up FASTING today Patient declines flu vaccine today. Today's PHQ-2 Score: PHQ-2 (??1998 Pfizer) 08/08/2019 Q1: Little interest or pleasure in doing things 1 Q2: Feeling down, depressed or hopeless 1 PHQ-2 Score 2 Q1: Little interest or pleasure in doing things Several days Q2: Feeling down, depressed or hopeless Several days PHQ-2 Score 2 Answers for HPI/ROS submitted by the patient on 08/08/2019 Annual Exam: If you checked off any problems, how difficult have these problems made it for you to do your work, take care of things at home, or get along with other people?: Somewhat difficult PHQ9 TOTAL SCORE: 9 Abuse: Current or Past(Physical, Sexual or Emotional)- No Do you feel safe in your environment? Yes Social History Tobacco Use ??? Smoking status: Never Smoker ??? Smokeless tobacco: Never Used Substance Use Topics ??? Alcohol use: Yes Frequency: Monthly or less Drinks per session: 1 or 2 Binge frequency: Never Comment: Rare Alcohol Use 08/08/2019 Prescreen: >3 drinks/day or >7 drinks/week? Not Applicable Prescreen: >3 drinks/day or >7 drinks/week? - Reviewed orders with patient. Reviewed health maintenance and updated orders accordingly - Yes Lab work is in process Mammogram Screening: Patient over age 50, mutual decision to screen reflected in health maintenance. Pertinent mammograms are reviewed under the imaging tab. History of abnormal Pap smear: NO - age 30-65 PAP every 5 years with negative HPV co-testing recommended PAP / HPV Latest Ref Rng & Units 05/03/2016 10/06/2014 10/06/2014 PAP - NIL - - HPV 16 DNA NEG Negative Negative Test canceled - Lab customer order clerk error(A) HPV 18 DNA NEG Negative Negative Test canceled - Lab customer order clerk error(A) OTHER HR HPV NEG Negative Negative Test canceled - Lab customer order clerk error(A) Reviewed and updated as needed this visit by clinical staff Tobacco Allergies Med Hx Surg Hx Fam Hx Soc Hx Reviewed and updated as needed this visit by Provider Review of Systems Constitutional: Negative for chills and fever. HENT: Negative for congestion, ear pain, hearing loss and sore throat. Eyes: Negative for pain and visual disturbance. Respiratory: Negative for cough and shortness of breath. Cardiovascular: Negative for chest pain, palpitations and peripheral edema. Gastrointestinal: Positive for constipation and heartburn. Negative for abdominal pain, diarrhea, hematochezia and nausea. Breasts: Negative for tenderness, breast mass and discharge. Genitourinary: Negative for dysuria, frequency, genital sores, hematuria, pelvic pain, urgency, vaginal bleeding and vaginal discharge. Musculoskeletal: Positive for arthralgias, joint swelling and myalgias. Skin: Negative for rash. Neurological: Positive for weakness and headaches. Negative for dizziness and paresthesias. Psychiatric/Behavioral: Positive for mood changes. The patient is not nervous/anxious. OBJECTIVE: BP 104/62 (BP Location: Right arm, Cuff Size: Adult Large) Pulse 84 Temp 97.7 ??F (36.5 ??C) (Tympanic) Resp 16 Ht 1.575 m (5' 2) Wt 88 kg (193 lb 14.4 oz) LMP 10/30/2011 SpO2 97% BMI 35.46 kg/m?? Physical Exam GENERAL APPEARANCE: healthy, alert and no distress EYES: Eyes grossly normal to inspection, PERRL and conjunctivae and sclerae normal HENT: ear canals and TM's normal, nose and mouth without ulcers or lesions, oropharynx clear and oral mucous membranes moist NECK: no adenopathy, no asymmetry, masses, or scars and thyroid normal to palpation RESP: lungs clear to auscultation - no rales, rhonchi or wheezes CV: regular rate and rhythm, normal S1 S2, no S3 or S4, no murmur, click or rub, no peripheral edemaand peripheral pulses strong ABDOMEN: soft, nontender, no hepatosplenomegaly, no masses and bowel sounds normal MS: no musculoskeletal defects are noted and gait is age appropriate without ataxia SKIN: no suspicious lesions or rashes NEURO: Normal strength and tone, sensory exam grossly normal, mentation intact and speech normal PSYCH: mentation appears normal and affect normal/bright Diagnostic Test Results: Labs reviewed in Epic ASSESSMENT/PLAN: 1. Routine general medical examination at a health care facility - BASIC METABOLIC PANEL - Lipid panel reflex to direct LDL Fasting - Albumin Random Urine Quantitative with Creat Ratio - HEMOGLOBIN A1C - FOOT EXAM 2. Moderate episode of recurrent major depressive disorder (H) Stable per patient, but I do wonder if depression is contributing to her sx. -Continue Cymbalta. 3. Persistent insomnia Ongoing. States fairly well controlled, but insurance will only give her 20 tabs per month -PAL to investigate and problem solve. May need to switch meds to get 30 days of coverage. - zolpidem (AMBIEN) 5 MG tablet; TAKE ONE TABLET BY MOUTH NIGHTLY AT BEDTIME NEEDED FOR SLEEP Dispense: 60 tablet; Refill: 5 4. Fibromyalgia -Saw rheum nurse consultants. Not particularly helpful. -In the future consider warm water pool therapy. - DULoxetine (CYMBALTA) 30 MG capsule; Take 1 capsule (30 mg) by mouth daily TAKE 1 CAPSULE (30 MG) BY MOUTH 2 TIMES DAILY Dispense: 90 capsule; Refill: 0 - cyclobenzaprine (FLEXERIL) 10 MG tablet; Take 1 tablet (10 mg) by mouth 3 times daily as needed for muscle spasms Dispense: 90 tablet; Refill: 11 5. Vitamin D deficiency Recheck. Unclear if supplementing currently. - Vitamin D Deficiency 6. Migraine without status migrainosus, not intractable, unspecified migraine type States she has a daily headache, some migraines, some not. Takes NSAIDs daily, which I have advised against. Headache increase has been gradual. No increase in frequency. No red flags. Again, I question whether this is related to fibromyalgia/mood issues. -Avoid daily NSAIDs due to analgesic rebount -Increase topamax. Reviewed r/b/se -Reviewed GEORGES red flags. If not resolved, will need to consider sending her to neuro vs MRI -F/U 2 months. - SUMAtriptan (IMITREX) 25 MG tablet; TAKE 1 TO 2 TABLETS BY MOUTH ONCE FOR MIGRAINE. OK TO REPEAT X1 AFTER 2HOURS. MAX 12TAB/25DAYS INS Dispense: 18 tablet; Refill: 5 - topiramate (TOPAMAX) 100 MG tablet; Take 1 tablet (100 mg) by mouth 2 times daily Take 1 tab by mouth 2 times daily Dispense: 90 tablet; Refill: 3 7. Morbid obesity (H) Ongoing. Likely combination postmenopause, sedentary, and high carb diet (although eating homemade meals. -Discussed lower carb -Increase physical activity. Has stationary bike access -Increase Topamax. - topiramate (TOPAMAX) 100 MG tablet; Take 1 tablet (100 mg) by mouth 2 times daily Take 1 tab by mouth 2 times daily Dispense: 90 tablet; Refill: 3 8. Snoring - SLEEP EVALUATION & MANAGEMENT REFERRAL - [facility] [phone] (Age 18 and up); Future 9. Type 2 diabetes mellitus with complication, without long-term current use of insulin (H) Well controlled -Recommended low carb diet, exercise. - metFORMIN (GLUCOPHAGE) 500 MG tablet; Take 2 tablets (1,000 mg) by mouth 2 times daily (with meals) TAKE 1 TABLET BY MOUTH TWICE A DAY WITH MEALS Dispense: 180 tablet; Refill: 1 - simvastatin (ZOCOR) 20 MG tablet; Take 1 tab daily Dispense: 90 tablet; Refill: 3 10. Hyperlipidemia LDL goal <100 Recheck - simvastatin (ZOCOR) 20 MG tablet; Take 1 tab daily Dispense: 90 tablet; Refill: 3 11. Gastroesophageal reflux disease without esophagitis Stable. Did not address PPI use as she had myriad other subjects. - omeprazole (PRILOSEC) [address] capsule; Take 2 capsules (40 mg) by mouth daily Dispense: 180 capsule; Refill: 3 12. Constipation, unspecified constipation type Ongoing. Stable. Well controlled. - psyllium (METAMUCIL) 0.52 g capsule; Take 1-2 capsules by mouth daily Each capsule should be administered individually with 8 ounces of fluid. Dispense: 200 capsule; Refill: 3 13. Allergic rhinitis, unspecified seasonality, unspecified trigger Stable, well controlled. - fluticasone (FLONASE) 50 MCG/ACT nasal spray; [place] 1-2 sprays into both nostrils daily Dispense: 16 g; Refill: 11 14. Vulvar dystrophy Previously biopsied and no precancerous cells. No current sx. Will monitor yearly with paps. 15. Dry mouth New issue in the last few years. No obvious meds causing this. Monitor. -Consider Sjogren workup. Did not have much time to address. 16. Pain of left lower leg Ongoing left leg pain and thigh/pinky toe numbness. No red flags for cauda equina or Other LBP red flags. Isn't have any low back pain now, but does have a history of LBP fusion. -Recommended f/u with back doctor. COUNSELING: Reviewed preventive health counseling, as reflected in patient instructions Estimated body mass index is 35.46 kg/m?? as calculated from the following: Height as of this encounter: 1.575 m (5' 2). Weight as of this encounter: 88 kg (193 lb 14.4 oz). Weight management plan: As above reports that she has never smoked. She has never used smokeless tobacco. Counseling Resources: ATP IV Guidelines Pooled Cohorts Equation Calculator Breast Cancer Risk Calculator FRAX Risk Assessment ICSI Preventive Guidelines Dietary Guidelines for Americans, 2009 USDA's MyPlate ASA Prophylaxis Lung CA Screening Noreen Hills APRN CNP [facility] Christi Hanna MA - 08/08/2019 9:15 AM CST Forwarded to SB# RACHEL [email or web address]. This is regarding Ambien-verified with provider Christi Panda CMA Lashae Dorsey [facility] - 08/08/2019 9:15 AM CST Considerations: 1.Common S/E of phentermine: Elevated blood pressure, palpitations, insomnia, anxiousness, headache,constipation, dry mouth, tremor 2. Do not use phentermine if, Cardiovascular disease, uncontrolled hypertension, hyperthyroidism, glaucoma. - which pt does not have any of these from chart review. Agreed no hard indications. Phentermine works well for pt's that graze or eat large portions. Otherwise, would also consider GLP-1RA agents as she is diabetic (even if controlled). Lashae Trevino, PharmD Medication Therapy Management Pharmacist Pager#: [phone] ER documented in this encounter Plan of Treatment Scheduled Referrals Name Type Priority Associated Diagnoses Order S chedule SLEEP EVALUATION & Referral Routine Snoring 1 Occurre nces starting MANAGEMENT REFERRAL - 2019 until ADULT -[facility] 2020 [facility] [phone] (Age 18 and up) documented as of this encounter Procedures Procedure Name Priority Date/Time Associated Diagnosis Comme nts VITAMIN D DEFICIENCY Routine 08/08/2019 10:17 Vitamin D defici ency Results for this SCREENING AM OPENER procedure are i n the results section. ALBUMIN RANDOM URINE Routine 08/08/2019 10:17 Routine general Results for this QUANTITATIVE AM OPENER medical examination procedur e are in at a health care the results facility section. LIPID REFLEX TO Routine 08/08/2019 10:17 Routine general Resul ts for this DIRECT LDL PANEL AM OPENER medical examination proc edure are in at a [facility] care the results facility section. HEMOGLOBIN A1C Routine 08/08/2019 10:17 Routine general Result s for this AM OPENER medical examination procedur e are in at a health care the results facility section. BASIC METABOLIC PANEL Routine 08/08/2019 10:17 Routine general Results for this AM OPENER medical examination procedur e are in at a health care the results facility section. documented in this encounter Results Vitamin D Deficiency (08/08/2019 10:17 AM OPENER) P athologist Signature Vitamin D 49 20 - 75 08/08/2019 [facility] Deficiency ug/L 4:03 PM OPENER [facility] Comment: Season, race, dietary intake, and treatm ent affect the concentration of 68-nojxnlh-Geezehm D. Values may decreas e during winter months and increase during summer months. Values 20-29 ug/L may indicate Vitamin D insufficiency and values <20 ug/L may indicate Vitamin D deficiency. Vitamin D determination is routinely per formed by an immunoassay specific for 25 hydroxyvitamin D3. ??If an individual is on vitamin D2 (ergocalciferol) supplementation, please specify 25 [place] vi tamin D2 and D3 level determination by LCMSMS test VITD23. Specimen Anatomical Collection Method Collection Time Receive d Time (Source) Location / / Volume Laterality Blood specimen 08/08/2019 10:17 0 (specimen) AM OPENER 10:18 AM OPENER Noreen Hills APRN, CNP LAB - BLOOD ORDERABLES Performing Organization Address City/State/ZIP Code Phon e Number [facility] [address] [place] [address] [facility] (ABNORMAL) HEMOGLOBIN A1C (08/08/2019 10:17 AM OPENER) athologist Signature Hemoglobin A1C 6.2 (H) 0 - 5.6 % 08/08/2019 [place] 10:44 AM [facility] Comment: Normal <5.7% Prediabetes 5.7-6.4% ??Diab etes 6.5% or higher - adopted from ADA consensus guidelines. Specimen Anatomical Collection Method Collection Time Receive d Time (Source) Location / / Volume Laterality Blood specimen 08/08/2019 10:17 0 (specimen) AM OPENER 10:18 AM OPENER Noreen Hills APRN, CNP LAB - BLOOD ORDERABLES Performing Organization Address City/State/ZIP Code Phon e Number [facility] [address] [place] [address] Albumin Random Urine Quantitative with Creat Ratio (08/08/2019 10:17 AM OPENER) athologist Signature Creatinine 154 mg/dL 08/09/2019 [place] Urine 1:54 PM OPENER [facility] Albumin Urine 11 mg/L 08/09/2019 [place] mg/L 1:59 PM OPENER [facility] Albumin Urine 7.14 0 - 25 08/09/2019 [place] mg/g Cr mg/g Cr 1:59 PM OPENER [facility] Specimen Anatomical Collection Method Collection Time Receive d Time (Source) Location / / Volume Laterality Urine specimen 08/08/2019 10:17 0 (specimen) AM OPENER 10:18 AM OPENER Noreen Hills APRN, CNP LAB - URINE ORDERABLES Performing Organization Address City/State/ZIP Code Phon e Number [facility] [address] [place] [address] (ABNORMAL) Lipid panel reflex to direct LDL Fasting (08/08/2019 10:17 AM OPENER) P athologist Signature Cholesterol 180 <200 mg/dL 08/08/2019 [place] 7:47 PM [facility] Triglycerides 153 (H) <150 mg/dL 08/08/2019 [place] 7:47 PM [facility] Comment: Borderline high: ??150-199 mg/dl High: ? 200-499 mg/dl Very high: ? >499 mg/dl HDL Cholesterol 46 (L) >49 mg/dL 08/08/2019 7:47 PM [facility] LDL Cholesterol 103 (H) <100 mg/dL 08/08/2019 7:47 PM [facility] Comment: Above desirable: ??100-129 mg/dl Borderline High: ??130-159 mg/dL High: ? 160-189 mg/dL Very high: ? >189 mg/dl Non HDL Cholesterol 134 (H) <130 mg/dL 08/08/2019 7:47 PM OPENER [facility] Comment: Above Desirable: ??130-159 mg/dl Borderline high: ??160-189 mg/dl High: ? 190-219 mg/dl Very high: ? >219 mg/dl Specimen Anatomical Collection Method Collection Time Receive d Time (Source) Location / / Volume Laterality Blood specimen 08/08/2019 10:17 0 (specimen) AM OPENER 10:18 AM OPENER Noreen Hills [employer] LAB - BLOOD ORDERABLES Performing Organization Address City/State/ZIP Code Phon e Number M [facility] [address] [place] [address] [phone] [facility] [address] [place] [address], [place] [phone] (ABNORMAL) BASIC METABOLIC PANEL (08/08/2019 10:17 AM OPENER) [facility] Method Time Signature Sodium 143 133 - 144 08/08/2019 [place] mmol/L 7:27 PM [facility] Potassium 4.3 3.4 - 5.3 08/08/2019 [place] mmol/L 7:27 PM [facility] Chloride 112 (H) 94 - 109 08/08/2019 [place] mmol/L 7:27 PM [facility] Carbon Dioxide 26 20 - 32 08/08/2019 [place] mmol/L 7:47 PM [facility] Anion Gap 5 3 - 14 08/08/2019 [place] mmol/L 7:47 PM [facility] Glucose 120 (H) 70 - 99 08/08/2019 [place] mg/dL 7:47 PM [facility] Urea Nitrogen 16 7 - 30 08/08/2019 [place] mg/dL 7:47 PM [facility] Creatinine 0.72 0.52 - 08/08/2019 [place] 1.04 mg/dL 7:47 PM [facility] GFR Estimate >90 >60 08/08/2019 [place] mL/min/{1. 7:47 PM [facility] 73_m2} [facility]OSPITAL Comment: Non GFR Calc Starting 05/28/2018, serum creatinine ba sed estimated GFR (eGFR) will be calculated using the Chronic Kidney Dise [facility] Epidemiology Collaboration (CKD-EPI) equation. GFR Estimate If >90 >60 mL/min/{1.73_m2} 08/08/2019 7: 47 PM [facility] Comment: GFR Calc Starting 05/28/2018, serum creatinine ba sed estimated GFR (eGFR) will be calculated using the Chronic Kidney Dise [facility] Epidemiology Collaboration (CKD-EPI) equation. Calcium 9.5 8.5 - 10.1 mg/dL 08/08/2019 7:47 PM [facility] Specimen Anatomical Collection Method Collection Time Receive d Time (Source) Location / / Volume Laterality Blood specimen 08/08/2019 10:17 0 (specimen) AM OPENER 10:18 AM OPENER Noreen Hills APRN [employer] LAB - BLOOD ORDERABLES Performing Organization Address City/State/ZIP Code Phon e Number M [facility] [address] [place] [address] [facility] [address] [place], [place] [address] [phone] [place] [address] [address] [place], [place] [address], [place] [phone] documented in this encounter Visit Diagnoses Diagnosis Routine general medical examination at a health care facility - Primary Moderate episode of recurrent major depr essive disorder (H) Persistent insomnia Persistent disorder of initiating or martínez ntaining sleep Fibromyalgia Mylagia and myositis, unspecified Vitamin D deficiency Unspecified vitamin D deficiency Migraine without status migrainosus, not intractable, unspecified migraine type Morbid obesity (H) Morbid obesity Snoring Other dyspnea and respiratory abnormalit y Type 2 diabetes mellitus with complicati on, without long-term current use of insulin (H) Hyperlipidemia LDL goal <100 Other and unspecified hyperlipidemia Gastroesophageal reflux disease without esophagitis Esophageal reflux Constipation, unspecified constipation t ype Allergic rhinitis, unspecified seasonali ty, unspecified trigger Vulvar dystrophy Other dystrophy of vulva Dry mouth Disturbance of salivary secretion Pain of left lower leg Pain in limb documented in this encounter Additional Health Concerns Assessment Noted Time PHQ-9 Depression Total Score: 9 08/09/2019 7:03 AM OPENER documented as of this encounter Care Teams Floor Installer Relationship Specialty Start Date End Date Noreen Hills PCP - General Nurse Practitioner 01/09/19 12/12/21 SEAN Haley [employer] [address] [facility] [place] [address] Noreen Hills Assigned PCP 06/16/18 SEAN Haley [employer] [address] [facility] [place] [address] Kalyan Galvan Personal Advocate & 08/08/19 Liaison (PAL) documented as of this encounter
--- OUTSIDE RECORDS SUMMARY | 2022-01-17 22:07 | XMS_ITS | Encounter Summary ---
:1965 Author Organization [place] Address [address] [place] [address] Care Team Providers Name Role Phone Noreen Hills APRN, CNP Unavailable [phone] Noreen Hills APRN, CNP Primary Care Provider [phone] Kalyan Galvan Unavailable Unavailable Reason for Referral Consultation (Routine) - Closed Specialty Diagnoses / Procedures Referred By Contact Refer red To Contact Orthopedics and Sports Diagnoses Pain of left lower leg Noreen Hills [facility] SEAN Haley [facility] [address] [place] [address]?? [place] [address] [facility] [place] [address] [address] [place] [address] Phone: Fax: Referral ID Status Reason Start Date Expiration Date Visits Requ ested Visits Authorized [id number] Closed 09/30/2019 09/29/2020 1 1 ed Therapy Management (Routine) - Closed Specialty Diagnoses / Procedures Referred By Contact Refer red To Contact Pharmacist Diagnoses Dry mouth Noreen Hills APRN [address] [place] [id number] Referral ID Status Reason Start Date Expiration Date Visits Requ ested Visits Authorized [id number] Closed 09/30/2019 09/29/2020 1 1 Reason for Visit Reason Onset Date Comments Weight Problem 09/30/2019 Encounter Details Date Type Department Care Team Description 09/30/2019 Virtual Visit [facility] Noreen Hills Dry mouth (Primary Dx); Clinic [place] Haley APRN Pain of left lower leg; [address] SILK SCREEN PROCESSOR Taste disorder; [address] [facility] Leg swelling; [address] [facility] Migraine without status migrainosus, not intractable, unspecified migraine type; [place] [address] [place] [address] Morbid obesity (H) [phone] Social History Tobacco Use Types Packs/Day Years [...] How often do you attend faith or yarsani Patient refused 08/08/2019 services? Do you belong [...] been in contact with No / Unsure 09/16/2019 11:54 AM CDT someone who was confirmed or suspected to have Coronavirus / COVID-19? documented as of this encounter Progress Notes Noreen Hills APRN SILK SCREEN PROCESSOR - 09/30/2019 9:05 AM CDT Megan Choi is a 54 [...] would you like to obtain your AVS? Libertad Gauthierkeshia Choi is a 54 year old female who presents to clinic today for the following health issues: 1) Worsening dry mouth x 2 years. Notes that decreased taste. Denies pain. 2) Weight: Pt reports have increased Topamax. She did not increase metformin because she was confused and couldn't remember. Started at 2000 mg for 3.5 weeks, but then she stopped and went down to 1000 mg. Would like confirmation today. 3) Pt did not get sleep study scheduled. She notes that she talked to her insurance company and she says it depends on coding for coverage. Pt still has the number to schedule. 4) Pt reports pain in bilateral feet. Pain is exacerbated by standing. L side is worse than R side. Pt reports hx of L foot surgery in 2016. Notes that pain started there. Review of Systems ROS COMP: Constitutional, HEENT, cardiovascular, pulmonary, gi and gu systems are negative, except as otherwise noted. Assessment/Plan: 1. Dry mouth Likely from medications, cannot rule out Sjogrens. Will have her talk to [place]. If they cannot find a culprit will do labs for Sjogrens. - MED THERAPY MANAGE REFERRAL 2. Pain of left lower leg See previous note. Encouraged her to f/u with ortho. Made new referral. No red flags. - Orthopedic & Spine Metal Sorter Referral; Future 3. Taste disorder Everything tastes like iron. Likely the topamax. Since topamax not helping, will back off. -Topamax 50 BID 4. Leg swelling Slight leg swelling end of day -Recommended compression stockings. 5. Migraine without status migrainosus, not intractable, unspecified migraine type Not improved with increased topamax and having side effects -Reduce to 50 BID topamax -Schedule sleep study -Will refer to neuro if not improving. - topiramate (TOPAMAX) 50 MG tablet; Take 1 tablet (50 mg) by mouth 2 times daily Take 1 tab by mouth 2 times daily Dispense: 180 tablet; Refill: 3 6. Morbid obesity (H) Topamax not helping weight and causing side effects. Reduce to 50 B - topiramate (TOPAMAX) 50 MG tablet; Take 1 tablet (50 mg) by mouth 2 times daily Take 1 tab by mouth 2 times daily Dispense: 180 tablet; Refill: 3 No follow-ups on file. Phone call duration: 30 minutes Noreen Hills APRN CNP documented in this encounter Plan of Treatment Scheduled Referrals Name Type Priority Associated Diagnoses Order S chedule MED THERAPY MANAGE Referral Routine Dry mouth Ordered: 09/30/2019 REFERRAL Orthopedic & Spine Referral Routine Pain of left lower leg Expected: 09/30/2019 Metal Sorter Referral (Approxim ate), Expires: 2020 documented as of this encounter Visit Diagnoses Diagnosis Dry mouth - Primary Disturbance of salivary secretion Pain of left lower leg Pain in limb Taste disorder Disturbances of sensation of smell and t aste Leg swelling Swelling of limb Migraine without status migrainosus, not intractable, unspecified migraine type Morbid obesity (H) Morbid obesity documented in this encounter Additional Health Concerns Assessment Noted Time PHQ-9 Depression Total Score: 9 08/09/2019 7:03 AM SENIOR EXECUTIVE COMPENSATION ANALYST documented as of this encounter Care Teams Ep Tech Relationship Specialty Start Date End Date Noreen Hills PCP - General Nurse Practitioner 01/09/19 12/12/21 SEAN Haley CNP [address] [facility] [place] [address] Noreen Hills Assigned PCP 06/16/18 SEAN Haley CNP [address] [facility] [place] [address] Kalyan Galvan Personal Advocate & 08/08/19 Liaison (PAL) documented as of this encounter
--- OUTSIDE RECORDS SUMMARY | 2022-01-17 22:07 | XMS_ITS | Encounter Summary ---
:1965 Author Organization [place] Address [address] [place] [address] Care Team Providers Name Role Phone Noreen Hills APRN LEATHERSMITH Unavailable [phone] Noreen Hills APRN, CNP Primary Care Provider [phone] Kalyan Galvan Unavailable Unavailable Encounter Details Date Type Department Care Team Description 08/08/2019 Travel Social History Tobacco Use Types Packs/Day [...] 08/08/2019 relatives? How often do you attend hoahaoism or moravian Patient refused 08/08/2019 services? 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
--- OUTSIDE RECORDS SUMMARY | 2022-01-17 22:07 | XMS_ITS | Encounter Summary ---
:1965 Author Organization [place] Address [address] [place] [address] Care Team Providers Name Role Phone Noreen Hills APRN SPECIALIST EMPLOYEE LABOR RELATIONS Unavailable [phone] Noreen Hills APRN, CNP Primary Care Provider [phone] Kalyan Galvan Unavailable Unavailable Encounter Details Date Type Department Care Team Description 09/16/2019 Travel Social History Tobacco Use Types Packs/Day [...] 08/08/2019 relatives? How often do you attend episcopalian or rastafari Patient refused 08/08/2019 services? Do you belong to any clubs or organizations such as No 08/08/2019 episcopalian groups, unions, fraternal or athletic groups, or [...] Depression Total Score: 9 08/09/2019 7:03 AM MEDICAID BUSINESS ANALYST documented as of this encounter Care Teams Integrated Marketing Manager Relationship Specialty Start Date End Date Noreen Hills PCP - General Nurse Practitioner 01/09/19 12/12/21 SEAN Haley SPECIALIST EMPLOYEE LABOR RELATIONS [address] [facility] [place] [address] Noreen Hills Assigned PCP 06/16/18 SEAN Haley SPECIALIST EMPLOYEE LABOR RELATIONS [address] [facility] [place] [address] Kalyan Galvan Personal Advocate & 08/08/19 Liaison (PAL) documented as of this encounter
--- OUTSIDE RECORDS SUMMARY | 2022-01-17 22:08 | XMS_ITS | Encounter Summary ---
:1965 Author Organization [place] Address [address] [place] [address] Care Team Providers Name Role Phone Noreen Hills APRN, CNP Unavailable [phone] Noreen Hills APRN, CNP Primary Care Provider [phone] Reason for Visit [facility] Physical Therapy (Routine) - Closed Specialty Diagnoses / Procedures Referred By Contact Refer red To Contact Diagnoses Left foot pain Right foot pain Coello's neuroma of both feet Pes cavus Peroneal tendinitis of both lower legs Agatha Null, DPM, Podiatry/Foot and Ankle Surgery [address] [place] [address] Referral ID Status Reason Start Date Expiration Date Visits Requ ested Visits Authorized [id number] Closed 01/21/2019 06/10/2019 30 30 Encounter Details Date Type Department Care Team Description 02/25/2019 [facility], Left fo ot pain; Rehabilitation Services PT Right foot pain; [place] [address] Peroneal tendinitis of both lower legs; [address] Chronic right shoulder pain [place], [place] [address] [address] [place] [address] [phone] Social History Tobacco Use Types Packs/Day Years [...] How often do you attend hindu or protestant Patient refused 08/08/2019 services? Do [...] on file documented as of this encounter Progress Notes Chen [place], PT - 02/25/2019 10:20 AM CDT Discharge Note Progress reporting period is from last progress note on to Feb 25, 2019. Megan failed to follow up and current status is unknown. Please see information below for last relevant information on current status. Patient seen for 5 visits. SUBJECTIVE Subjective changes noted by patient: Pt states she can now reach overhead without pain. Pain with work shift is still 5-7/10. She notes temporary relief of foot symptoms following ionto. She had a in the family and has been less consistent with exercises especially with strengthening ex. . Current pain level is . Previous pain level was 10/10. Changes in function: Yes (See Goal flowsheet attached for changes in current functional level) Adverse reaction to treatment or activity: None OBJECTIVE Changes noted in objective findings: AROM right shoulder flex 155, abd 160, AROM right ankle DF 11, left ankle DF 12 ASSESSMENT/PLAN Diagnosis: R shoulder pain Updated problem list and treatment plan: Pain - HEP Decreased ROM/flexibility - HEP Decreased function - HEP Decreased strength - HEP STG/LTGs have been met or progress has been made towards goals: Yes, please see goal flowsheet for most current information Assessment of Progress: current status is unknown. Last current status: Pt is progressing as expected Self Management Plans: HEP I have re-evaluated this patient and find that the nature, scope, duration and intensity of the therapy is appropriate for the medical condition of the patient. Megan continues to require the following intervention to meet STG and LTG's: HEP. Recommendations: Discharge with current home program. Patient to follow up with MD as needed. Please refer to the daily flowsheet for treatment today, total treatment time and time spent performing 1:1 timed codes. DOWN NURSE documented in this encounter Plan of Treatment Not on filedocumented as of this encounter Procedures Procedure Name Priority Date/Time Associated Diagnosis Comme nts [facility] NEUROMUSCULAR Routine 02/25/2019 10:49 AM Left foot pain RE-EDUCATION CDT Right foot pain Peroneal tendinitis of both lower le gs Chronic right shoulder pain [facility] THERAPEUTIC EXERCISES Routine 02/25/2019 10:49 AM Le ft foot pain CDT Right foot pain Peroneal tendinitis of both lower le gs Chronic right shoulder pain [facility] ELECTRIC CURRENT Routine 02/25/2019 10:49 AM Left fo ot pain THERAPY CDT Right foot pain Peroneal tendinitis of both lower legs documented in this encounter Visit Diagnoses Diagnosis Left foot pain Pain in limb Right foot pain Pain in limb Peroneal tendinitis of both lower legs Chronic right shoulder pain Pain in joint, shoulder region documented in this encounter Additional Health Concerns Assessment Noted Time PHQ-9 Depression Total Score: 10 01/02/2019 10:18 AM C DT documented as of this encounter Care Teams Assistant Associate Full Professor Relationship Specialty Start Date End Date Noreen Hills APRN DOT ETCHER APPRENTICE PCP - General Nurse Practitioner 01/09/19 12/12/[address] [place] [address] [place] [address] Noreen Hills APRN DOT ETCHER APPRENTICE Assigned PCP 06/16/18 [address] [facility] [place] [address] documented as of this encounter
--- OUTSIDE RECORDS SUMMARY | 2022-01-17 22:08 | XMS_ITS | Encounter Summary ---
:1965 Author Organization [place] Address [address] [place] [address] Care Team Providers Name Role Phone Noreen Hills APRN, CNP Unavailable [phone] Noreen Hills APRN, CNP Primary Care Provider [phone] Reason for Visit Reason Comments Medication Refill Encounter Details Date Type Department Care Team Description 05/26/2019 Refill [facility] Aleyda Guerrero MD Medication Refill [place] [address] [facility] [address] [facility] [place] [address] [address] [place] [address] [phone] Social History Tobacco Use Types Packs/Day Years [...] 08/08/2019 relatives? How often do you attend sikhism or holiness Patient refused 08/08/2019 services? Do you belong to any clubs or organizations such as No 08/08/2019 sikhism groups, unions, fraternal or athletic groups, or [...] this encounter Miscellaneous Notes Telephone Encounter - Noreen Hills APRN CNP - 05/27/2019 11:08 AM GRAIN TRIMMER See refill request from 05/22 N TRIMMER Telephone Encounter - Flakita Gaines RN - 05/27/2019 10:57 AM CST Routing refill request to provider for review/approval because: Drug not on the [facility] refill protocol Flakita Gaines RN N TRIMMER documented in this encounter Plan of Treatment Not on filedocumented as of this encounter Visit Diagnoses Diagnosis Chronic seasonal allergic rhinitis documented in this encounter Additional Health Concerns Assessment Noted Time PHQ-9 Depression Total Score: 10 01/02/2019 10:18 AM C DT documented as of this encounter Care Teams Verse Writer Relationship Specialty Start Date End Date Noreen Hills APRN DIRECTOR OF BUSINESS SERVICES PCP - General Nurse Practitioner 01/09/19 12/12/[address] [place] [address] [place] [address] Noreen Hills APRN DIRECTOR OF BUSINESS SERVICES Assigned PCP 06/16/[address] [place] [address] [place] [address] documented as of this encounter
--- OUTSIDE RECORDS SUMMARY | 2022-01-17 22:08 | XMS_ITS | Encounter Summary ---
:1965 Author Organization [place] Address [address] [place] [address] Care Team Providers Name Role Phone Noreen Hills APRN VISITOR INFORMATION ASSISTANT Unavailable [phone] Noreen Hills APRN VISITOR INFORMATION ASSISTANT Primary Care Provider Reason for Visit Reason Onset Date Comments Refill Request 03/05/2019 omeprazole (PRILOSEC ) [address] capsule Encounter Details Date Type Department Care Team Description 03/05/2019 [facility] Vanda Guerrero R efill Request Clinic [place] SALDANA (omeprazole (PRILOSEC) [address] [facility] [address] capsule) [facility] [address] [place] [address] [place] [phone] [phone] Social History Tobacco Use Types Packs/Day Years [...] How often do you attend protestant or gnosticism Patient refused 08/08/2019 services? Do you belong [...] this encounter Miscellaneous Notes Telephone Encounter - Wilda Gupta - 03/05/2019 11:13 AM CDT Requested Prescriptions Pending Prescriptions Disp Refills ??? omeprazole (PRILOSEC) [address] capsule Last Written Prescription Date: 11/11/2018 Last Fill Quantity: 180 capsule, # refills: 0 Last office visit: 01/02/2019 with prescribing provider: Noreen Hills APRN CNP Future Office Visit: 180 capsule 0 PPI Protocol Passed - 03/05/2019 10:41 AM Passed - Not on Clopidogrel (unless Pantoprazole ordered) Passed - No diagnosis of osteoporosis on record Passed - Recent (12 mo) or future (30 days) visit within the authorizing provider's specialty Patient had office visit in the last 12 months or has a visit in the next 30 days with authorizing provider or within the authorizing provider's specialty. See Patient Info tab in inbasket, or Choose Columns in Meds & Orders section of the refill encounter. Passed - Medication is active on med list Passed - Patient is age 18 or older Passed - No active pregnacy on record Passed - No positive test in past 12 months documented in this encounter Plan of Treatment Not on filedocumented as of this encounter Visit Diagnoses Diagnosis Gastroesophageal reflux disease without esophagitis Esophageal reflux documented in this encounter Additional Health Concerns Assessment Noted Time PHQ-9 Depression Total Score: 10 01/02/2019 10:18 AM C DT documented as of this encounter Care Teams Public Relations Director Relationship Specialty Start Date End Date Noreen Hills APRN VISITOR INFORMATION ASSISTANT PCP - General Nurse Practitioner 01/09/19 12/12/[address] [place] [address] [place] [address] Noreen Hills APRN VISITOR INFORMATION ASSISTANT Assigned PCP 06/16/[address] [place] [address] [place] [address] documented as of this encounter
--- OUTSIDE RECORDS SUMMARY | 2022-01-17 22:08 | XMS_ITS | Encounter Summary ---
:1965 Author Organization [place] Address [address] [place] [address] Care Team Providers Name Role Phone Noreen Hills APRN, CNP Unavailable [phone] Noreen Hills APRN, CNP Primary Care Provider [phone] Kalyan Galvan Unavailable Unavailable Lashae Trevino [facility] Unavailable [phone] Eduardo Sharma MD Unavailable Rios Monteiro MD Unavailable Marcelo Artis PA-C Unavailable [phone] Rodrigo Man PA-C Unavailable Reason for Visit Reason Onset Date Comments Medication Refill 04/25/2019 metFORMIN (GLUCOPHAG E) 500 MG tablet Encounter Details Date Type Department Care Team Description 04/25/2019 Refill [facility] Noreen Hills Medication Refill Clinic [place] Haley APRN CNP (metFORMIN (GLUCOPHAGE) [address] [place] [address] [facility] 500 M G tablet) [facility] [address] [place] [address] [place] [address] [phone] Social History Tobacco Use Types Packs/Day Years [...] How often do you attend adventism or synagogue Patient refused 08/08/2019 services? Do you belong to any clubs or organizations such as No 08/08/2019 adventism groups, unions, fraternal or athletic groups, or [...] this encounter Miscellaneous Notes Telephone Encounter - Kimberley Bryan RN - 04/28/2019 11:47 AM CST Routing refill request to provider for review/approval because: Labs not current: LDL, creatinine Due for appointment TH EDUCATION SPECIALIST Telephone Encounter - Lara Villalba - 04/25/2019 9:33 AM CST Requested Prescriptions Pending Prescriptions Disp Refills ??? metFORMIN (GLUCOPHAGE) 500 MG tablet [Pharmacy Med Name: METFORMIN HCL 500 MG TABLET] Last Written Prescription Date: 12/11/17 Last Fill Quantity: 60 tablet, # refills: 0 Last office visit: 01/02/2019 with prescribing provider: Jeana Future Office Visit: 180 tablet 1 Sig: TAKE 1 TABLET BY MOUTH TWICE A DAY WITH MEALS Biguanide Agents Failed - 04/25/2019 8:12 AM Failed - Patient has documented LDL within the past 12 mos. Recent Labs Lab Test 04/09/18 1009 LDL 87 Failed - Patient's CR is NOT>1.4 OR Patient's EGFR is NOT<45 within past 12 mos. Recent Labs Lab Test 04/09/18 1009 GFRESTIMATED 78 GFRESTBLACK >90 Recent Labs Lab Test 04/09/18 1009 CR 0.77 Passed - Blood pressure less than 140/90 in past 6 months BP Readings from Last 3 Encounters: 01/21/19 110/60 01/02/19 118/68 11/13/18 130/64 Passed - Patient has had a Microalbumin in the past 15 mos. Recent Labs Lab Test 04/09/18 1010 MICROL 8 UMALCR 5.51 Passed - Patient is age 10 or older Passed - Patient has documented A1c within the specified period of time. If HgbA1C is 8 or greater, it needs to be on file within the past 3 months. If less than 8, must beon file within the past 6 months. Recent Labs Lab Test 01/02/19 0956 A1C 6.2* Passed - Patient does NOT have a diagnosis of CHF. Passed - Medication is active on med list Passed - Patient is not Passed - Patient has not had a positive test within the past 12 mos. Passed - Recent (6 mo) or future (30 days) visit within the authorizing provider's specialty Patient had office visit in the last 6 months or has a visit in the next 30 days with authorizing provider or within the authorizing provider's specialty. See Patient Info tab in inbasket, or Choose Columns in Meds & Orders section of the refill encounter. TH EDUCATION SPECIALIST documented in this encounter Plan of Treatment [...] documented as of this encounter Care Teams Free Lance Artist Relationship Specialty Start Date End Date Noreen Hills PCP - General Nurse Practitioner 01/09/19 12/12/21 SEAN Haley INSPECTOR FUEL HOSE [address] [facility] [place] [address] Noreen Hills Assigned PCP 06/16/18 SEAN Haley INSPECTOR FUEL HOSE [address] [facility] [place] [address] Kalyan Galvan Personal Advocate & 08/08/19 Liaison (PAL) Lashae Trevino Pharmacist Pharmacist 10/14/19 12/01/20 [facility] [address] [facility] [place] [address] Eduardo Sharma MD Assigned Sleep Provider 04/02/20 05/07/21 [address] [place] [id number] Rios Monteiro MD Assigned Musculoskeletal 04/02/20 08/24/20 [address] Sighter Provider [address] [place] [id number] Marcelo Artis Assigned Musculoskeletal 08/25/20 08/20/21 MIKAYLA Nuno Provider [address] [facility] [address] [place] [address] Rodrigo Man Assigned Surgical 08/25/2011/27 MIKAYLA Lacy Provider [address] [facility] [address] [place], [place] [id number] documented as of this encounter
--- OUTSIDE RECORDS SUMMARY | 2022-01-17 22:08 | XMS_ITS | Encounter Summary ---
:1965 Author Organization [place] Address [address] [place] [address] Care Team Providers Name Role Phone Noreen Hills APRN, CNP Unavailable [phone] Noreen Hills APRN, CNP Primary Care Provider [phone] Reason for Visit Reason Comments Medication Refill duplicate, see other enc - C VS ALLERGY RELIEF-D 10-240 MG 24 hr tablet Encounter Details Date Type Department Care Team Description 05/21/2019 Refill [facility] Vanda uGerrero M edication Refill Clinic [facility] SALDANA (duplicate, see other [address]305 [facility] enc - [facility] [address] RELIEF-D 10-240 MG 24 [address] [place] [address] hr tablet) [place] [address] [phone] Social History Tobacco Use Types Packs/Day Years [...] 08/08/2019 relatives? How often do you attend voodoo or worship Patient refused 08/08/2019 services? Do you belong to any clubs or organizations such as No 08/08/2019 voodoo groups, unions, fraternal or athletic groups, or [...] this encounter Miscellaneous Notes Telephone Encounter - Kallie Celaya RN - 05/22/2019 9:07 AM CST This is a duplicate request. See 05/18/19 encounter. AND MARBLE INSTALLER documented in this encounter Plan of Treatment Not on filedocumented as of this encounter Visit Diagnoses Diagnosis Chronic seasonal allergic rhinitis documented in this encounter Additional Health Concerns Assessment Noted Time PHQ-9 Depression Total Score: 10 01/02/2019 10:18 AM C DT documented as of this encounter Care Teams Hand Splitter Relationship Specialty Start Date End Date Noreen Hills APRN HOSPITAL MANAGER PCP - General Nurse Practitioner 01/09/19 12/12/[address] [place] [address] [place] [address] Noreen Hills APRN HOSPITAL MANAGER Assigned PCP 06/16/[address] [place] [address] [place] [address] documented as of this encounter
--- OUTSIDE RECORDS SUMMARY | 2022-01-17 22:08 | XMS_ITS | Encounter Summary ---
:1965 Author Organization [place] Address [address] [place] [address] Care Team Providers Name Role Phone Noreen Hills APRN NETWORK PRICING CONSULTANT Unavailable [phone] Noreen Hills APRN NETWORK PRICING CONSULTANT Primary Care Provider [phone] Reason for Visit Reason Onset Date Comments Refill Request 05/22/2019 Encounter Details Date Type Department Care Team Description 05/22/2019 MyC Refill [facility] Noreen Hills Ref ill Request [place] Haley APRN NETWORK PRICING CONSULTANT 3305 [facility] [address] [place] [address] [address] [place] [address] [place] [id number] [phone] Social History Tobacco Use Types Packs/Day Years [...] 08/08/2019 relatives? How often do you attend lutheran or congregation Patient refused 08/08/2019 services? Do you belong to any clubs or organizations such as No 08/08/2019 lutheran groups, unions, fraternal or athletic groups, or [...] this encounter Miscellaneous Notes Telephone Encounter - Shefali Root MA - 06/02/2019 9:03 AM PATROL AGENT Patient has appointment on 08/08/2019 Shefali Root MA OL AGENT Telephone Encounter - Christi Panda MA - 05/30/2019 9:09 AM CST My Chart message sent to schedule. Christi Panda CMA OL AGENT Telephone Encounter - Lainey Wells - 05/23/2019 12:22 PM CST 1st attempt l/m. Lainey Wells on 05/23/2019 at 12:22 PM OL AGENT Telephone Encounter - Noreen Hills APRN CNP - 05/23/2019 11:28 AM PATROL AGENT I will fill Ambien. I prefer her not being on Sudafed. Can worsen anxiety and blood pressure\ Would she be willing to switch to regular loratadine? Due for physical in Jul. Please assist with scheduling. OL AGENT Telephone Encounter - Liya Gonzalez RN - 05/23/2019 9:16 AM CST Loratadine prescription failed transmission Ambien has 2 weeks left on script Thea OzunaDIRECTOR WEIGHTS AND MEASURES [facility] [phone] OL AGENT documented in this encounter Plan of Treatment Not on filedocumented as of this encounter Visit Diagnoses Diagnosis Persistent insomnia Persistent disorder of initiating or martínez ntaining sleep Chronic seasonal allergic rhinitis documented in this encounter Additional Health Concerns Assessment Noted Time PHQ-9 Depression Total Score: 10 01/02/2019 10:18 AM C DT documented as of this encounter Care Teams Cigarette Maker Relationship Specialty Start Date End Date Noreen Hills APRN CNP PCP - General Nurse Practitioner 01/09/19 12/12/[address] [place] [address] [place] [id number] Noreen Hills APRN CNP Assigned PCP 06/16/[address] [place] [address] [place] [id number] documented as of this encounter
--- OUTSIDE RECORDS SUMMARY | 2022-01-17 22:08 | XMS_ITS | Encounter Summary ---
:1965 Author Organization [place] Address [address] [place] [address] Care Team Providers Name Role Phone Noreen Hills APRN BOTTOM CAGER Unavailable [phone] Noreen Hills APRN BOTTOM CAGER Primary Care Provider [phone] Reason for Visit Reason Comments Medication Refill Encounter Details Date Type Department Care Team Description 06/11/2019 Refill [facility] Noreen Hills, Medication Refill [place] ESTRADA BOTTOM CAGER [address] [place] [address] [place] [address] [phone] Social History Tobacco Use Types Packs/Day Years [...] How often do you attend yazidi or sabianist Patient refused 08/08/2019 services? Do you belong [...] this encounter Miscellaneous Notes Telephone Encounter - Liya Gonzalez RN - 06/12/2019 9:54 AM CST Ok x one refill has appointment pending TENANCE ENGINEER OIL FIELD Telephone Encounter - Rosalia Garcia MA - 06/12/2019 6:43 AM CST Requested Prescriptions Pending Prescriptions Disp Refills ??? simvastatin (ZOCOR) 20 MG tablet [Pharmacy Med Name: SIMVASTATIN 20 MG TABLET] 90 tablet 3 Sig: TAKE 1 TABLET (20 MG) BY MOUTH AT BEDTIME Statins Protocol Failed - 06/11/2019 1:51 AM Failed - LDL on file in past 12 months Recent Labs Lab Test 04/09/18 1009 LDL 87 Passed - No abnormal creatine kinase in past 12 months No lab results found. Passed - Recent (12 mo) or future [...] 18 or older Passed - No active on record Passed - No positive test in past 12 months simvastatin (ZOCOR) 20 MG tablet 90 tablet 3 06/25/2018 Last Written Prescription Date: 06/25/2018 Last Fill Quantity: 90, # refills: 3 Last office visit: 01/02/2019 with prescribing provider: Dr hills Future Office Visit: 08/08/2019 Next 5 appointments (look out 90 days) Aug 08, 2019 9:15 AM MAINTENANCE ENGINEER OIL FIELD (Arrive by 8:50 AM) Adult Preventative Visit with Noreen Hills APRN CNP [facility]) [address] [place] [address] [address] [place] [address] TENANCE ENGINEER OIL FIELD documented in this encounter Plan of Treatment Not on filedocumented as of this encounter Visit Diagnoses Diagnosis Hyperlipidemia LDL goal <100 Other and unspecified hyperlipidemia Type 2 diabetes mellitus with complicati on, without long-term current use of insulin (H) documented in this encounter Additional Health Concerns Assessment Noted Time PHQ-9 Depression Total Score: 10 01/02/2019 10:18 AM C DT documented as of this encounter Care Teams Back Stayer Relationship Specialty Start Date End Date Noreen Hills APRN CNP PCP - General Nurse Practitioner 01/09/19 12/12/[address] [place] [address] [place] [address] Noreen Hills APRN CNP Assigned PCP 06/16/[address] [place] [address] documented as of this encounter
--- OUTSIDE RECORDS SUMMARY | 2022-01-17 22:08 | XMS_ITS | Encounter Summary ---
:1965 Author Organization [place] Address [address] [place] [address] Care Team Providers Name Role Phone Noreen Hills APRN, CNP Unavailable [phone] Noreen Hills APRN, CNP Primary Care Provider [phone] Reason for Visit Reason Comments Medication Refill Encounter Details Date Type Department Care Team Description 05/13/[address] [facility] Aleyda Guerrero MD Medication Refill [place] 3305 [facility] 3305 [facility] [place] [address] [address] [place] [address] [phone] Social History Tobacco Use Types Packs/Day Years [...] How often do you attend restoration or yazidism Patient refused 08/08/2019 services? Do you belong [...] encounter Miscellaneous Notes Telephone Encounter - Keyona Cartagena RN - 05/13/2019 10:41 AM PREFORM PLATE MAKER Patient has refills remaining with requesting pharmacy. Keyona Palacios - Registered Nurse [facility] ORM PLATE MAKER documented in this encounter Plan of Treatment Not on filedocumented as of this encounter Visit Diagnoses Diagnosis Chronic seasonal allergic rhinitis documented in this encounter Additional Health Concerns Assessment Noted Time PHQ-9 Depression Total Score: 10 01/02/2019 10:18 AM C DT documented as of this encounter Care Teams Heel Blacker Relationship Specialty Start Date End Date Noreen Hills APRN LABOR AND DELIVERY NURSE PCP - General Nurse Practitioner 01/09/19 12/12/21 [address] [facility] [place] [address] Nroeen Hills APRN LABOR AND DELIVERY NURSE Assigned PCP 06/16/18 [address] [facility] [place] [address] documented as of this encounter
--- OUTSIDE RECORDS SUMMARY | 2022-01-17 22:08 | XMS_ITS | Encounter Summary ---
:1965 Author Organization [facility] Address [address] [place] [address] Care Team Providers Name Role Phone Noreen Hills APRN, CNP Unavailable [phone] Noreen Hills APRN, CNP Primary Care Provider [phone] Reason for Visit [facility] Physical Therapy (Routine) - Closed Specialty Diagnoses / Procedures Referred By Contact Refer red To Contact Diagnoses Left foot pain Right foot pain Coello's neuroma of both feet Pes cavus Peroneal tendinitis of both lower legs Agatha Null, DPM, Podiatry/Foot and Ankle Surgery [address] [place] [address] Referral ID Status Reason Start Date Expiration Date Visits Requ ested Visits Authorized [id number] Closed 01/21/2019 06/10/2019 30 30 Encounter Details Date Type Department Care Team Description 01/28/2019 Therapy Visit [facility] Marcelo Trejo, Left foot pain; Rehabilitation Services PT Right foot pain; [place] [address] Coello's neuroma of both feet; 3305 [place], [place] Pes cavus; [address] [address] Peroneal tendinitis of both lower legs; [address] Chronic right shoulder pain P[place] [address] (Work) [phone] Social History Tobacco Use Types Packs/Day Years [...] How often do you attend lutheran or holiness Patient refused 08/08/2019 services? Do [...] documented as of this encounter Progress Notes Marcelo Trejo, PT - 01/28/2019 10:00 AM CDT [facility] Initial Evaluation Subjective: The history is provided by the patient. No speech language pathologist assistant was used. Megan Choi being seen for B feet. Problem began 06/11/2009 (very rough estimate). Problem occurred: Insidious onset and gradual progression, pt cannot recall when or how this all started. Pt notes she had torn tendons B ankles, did a surgery on L to repair it, but really struggled with the rehab. Pt has started to notice pain and numbness/tingling lateral and anterior ankle. Pt notes more pain with prolonged standing/walking. and reported as 10/10 on pain scale. General health as reported by patient is good. Pertinent medical history includes: Depression, diabetes, fibromyalgia, history of fractures, menopausal, migraines/headaches, numbness/tingling and overweight. Current medications: Anti-depressants, muscle relaxants and sleep me dication. Primary job tasks include: Prolonged standing. Pain is described as sharp (throbbing) and is constant. Pain is the same all the time. Since onset symptoms are gradually worsening. Special tests: X-ray. 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 Restrictions include: Working in normal job without restrictions. Barriers include: None as reported by patient. Red flags: None as reported by patient. Type of problem: Bilateral ankles and bilateral feet Patient reports pain: Anterior and lateral. Associated symptoms: Loss of strength. Symptoms are exacerbated by walking and standing and relieved by rest. Objective: Standing Alignment: Ankle/Foot: Pes planus R and pes planus L Gait: Gait Type: Antalgic Ankle/Foot Evaluation ROM: AROM: Dorsiflexion: Left: 8 Right: 8 Plantarflexion: Left: 45 Right: 45 Inversion: Left: Wnl Right: Wnl Eversion: Wnl Right: Wnl Strength: Dorsiflexion: Left: 4+/5 Pain: Right: 4+/5 Pain: Plantarflexion: Left: 4+/5 Pain: Right: 4+/5 Pain: Inversion:Left: 4/5 Pain: Right: 4/5 Pain: Eversion:Left: 4+/5 Pain: Right: 4+/5 Pain: General ROS Assessment/Plan: Patient is a 53 year old female with both sides ankle complaints. Patient has the following significant findings with corresponding treatment plan. Diagnosis 1: B foot/ankle pain Pain - hot/cold therapy, manual therapy, self management, education and home program Decreased ROM/flexibility - manual therapy and therapeutic exercise Decreased strength - therapeutic exercise and therapeutic activities Impaired gait - gait training Impaired muscle performance - neuro re-education Decreased function - therapeutic activities Therapy Evaluation Codes: 1) History comprised of: Personal factors that impact the plan of care: Gender, Profession and Time since onset of symptoms. Comorbidity factors that impact the plan of care are: Diabetes, Depression, Fibromyalgia, Menopausal, Migraines/headaches, Numbness/tingling and Overweight. Medications impacting care: Anti-depressant, Muscle relaxant and Sleep. 2) Examination of Body Systems comprised of: Body structures and functions that impact the plan of care: Ankle and B feet. Activity limitations that impact the plan of care are: Stairs, Standing, Walking and Working. 3) Clinical presentation characteristics are: Evolving/Changing. 4) Decision-Making Moderate complexity using standardized patient assessment instrument and/or measureable assessment of functional outcome. Cumulative Therapy Evaluation is: Moderate complexity. Previous and current functional limitations: (See Goal Flow Sheet for this information) Short term and extermination supervisor goals: (See Goal Flow Sheet for this information) Communication ability: Patient appears to be able to clearly communicate and understand verbal and written communication and follow directions correctly. Treatment Explanation - The following has been discussed with the patient: RX ordered/plan of care Anticipated outcomes Possible risks and side effects This patient would benefit from PT intervention to resume normal activities. Rehab potential is fair. Frequency: 1 X week, once daily Duration: for 8 weeks Discharge Plan: Achieve all LTG. Independent in home treatment program. Reach maximal therapeutic benefit. Please refer to the daily flowsheet for treatment today, total treatment time and time spent performing 1:1 timed codes. documented in this encounter Plan of Treatment Not on filedocumented as of this encounter Procedures Procedure Name Priority Date/Time Associated Diagnosis Comme [facility] THERAPEUTIC Routine 01/28/2019 10:42 AM Left foot pa in EXERCISES CDT Right foot pain Peroneal tendinitis of both lower legs ZC ELECTRIC CURRENT Routine 01/28/2019 10:42 AM Left fo ot pain THERAPY CDT Right foot pain Peroneal tendinitis of both lower legs documented in this encounter Visit Diagnoses Diagnosis Left foot pain Pain in limb Right foot pain Pain in limb Coello's neuroma of both feet Pes cavus Talipes cavus Peroneal tendinitis of both lower legs Chronic right shoulder pain Pain in joint, shoulder region documented in this encounter Additional Health Concerns Assessment Noted Time PHQ-9 Depression Total Score: 10 01/02/2019 10:18 AM C DT documented as of this encounter Care Teams Edging Catcher Relationship Specialty Start Date End Date Noreen Hills APRN CONTRACT ACCOUNTANT PCP - General Nurse Practitioner 01/09/19 12/12/[address] [place] [address] [place] [phone] Noreen Hills APRN CONTRACT ACCOUNTANT Assigned PCP 06/16/[address] [place] [address] [place] [address] documented as of this encounter
--- OUTSIDE RECORDS SUMMARY | 2022-01-17 22:08 | XMS_ITS | Encounter Summary ---
:1965 Author Organization [facility] Address [address] [place] [address] Care Team Providers Name Role Phone Noreen Hills APRN, CNP Unavailable [phone] Noreen Hills APRN, CNP Primary Care Provider Reason for Visit [facility] (Routine) - Closed Specialty Diagnoses / Procedures Referred By Contact Refer red To Contact Diagnoses Left foot pain Right foot pain Coello's neuroma of both feet Pes cavus Peroneal tendinitis of both lower legs Agatha Null, DPM, Podiatry/Foot and Ankle Surgery [address] [place] [address] Referral ID Status Reason Start Date Expiration Date Visits Requ ested Visits Authorized [id number] Closed 01/21/2019 06/10/2019 30 30 Encounter Details Date Type Department Care Team Description 02/11/2019 Therapy Visit [facility] Marcelo Trejo, Left foot pain; Rehabilitation Services PT Right foot pain; [place] [address] Peroneal tendinitis of both lower legs; [address] [place], [place] Chronic ri ght shoulder pain [facility] [address] [address] [address] [place] [address] (Work) [phone] Social History Tobacco Use Types Packs/Day Years [...] 08/08/2019 relatives? How often do you attend presybeterian or buddhist Patient refused 08/08/2019 services? Do you belong to any clubs or organizations such as No 08/08/2019 presybeterian groups, unions, fraternal or athletic groups, or [...] Name Priority Date/Time Associated Diagnosis Comme nts Z[facility] NEUROMUSCULAR Routine 02/11/2019 10:00 AM Left foot pain RE-EDUCATION CDT Right foot pain Peroneal tendinitis of both lower le gs Chronic right shoulder pain ZZ[facility] THERAPEUTIC EXERCISES Routine 02/11/2019 10:00 AM Le ft foot pain CDT Right foot pain Peroneal tendinitis of both lower le gs Chronic right shoulder pain ZZC ELECTRIC CURRENT Routine 02/11/2019 10:00 AM Left fo ot pain THERAPY CDT Right foot pain Peroneal tendinitis of both lower le gs Chronic right shoulder pain documented in this encounter Visit Diagnoses Diagnosis Left foot pain Pain in limb Right foot pain Pain in limb Peroneal tendinitis of both lower legs Chronic right shoulder pain Pain in joint, shoulder region documented in this encounter Additional Health Concerns Assessment Noted Time PHQ-9 Depression Total Score: 10 01/02/2019 10:18 AM C DT documented as of this encounter Care Teams Set And Exhibit Designer Relationship Specialty Start Date End Date Noreen Hills APRN PRESSING MACHINE TENDER PCP - General Nurse Practitioner 01/09/19 12/12/[address] [facility] [place] [address] Noreen Hills APRN PRESSING MACHINE TENDER Assigned PCP 06/16/[address] [place] [address] [place] [id number] documented as of this encounter
--- OUTSIDE RECORDS SUMMARY | 2022-01-17 22:08 | XMS_ITS | Encounter Summary ---
:1965 Author Organization [place] Address [address] [place] [address] Care Team Providers Name Role Phone Noreen Hills APRN, CNP Unavailable [phone] Noreen Hills APRN, CNP Primary Care Provider [phone] Encounter Details Date Type Department Care Team Description 02/11/2019 Travel Social History Tobacco Use Types Packs/Day [...] How often do you attend religious or scientology Patient refused 08/08/2019 services? Do you belong to any clubs or organizations such as No 08/08/2019 religious groups, unions, fraternal or athletic groups, or [...] documented as of this encounter Care Teams Wet Cleaner Machine Relationship Specialty Start Date End Date Noreen Hills APRN STEEL POURER PCP - General Nurse Practitioner 01/09/19 12/12/[address] [place] [address] [place] [address] Noreen Hills APRN STEEL POURER Assigned PCP 06/16/[address] [place] [address] [place] [id number] documented as of this encounter
--- OUTSIDE RECORDS SUMMARY | 2022-01-17 22:08 | XMS_ITS | Encounter Summary ---
:1965 Author Organization [facility] Address [address] [place] [address] Care Team Providers Name Role Phone Noreen Hills APRN, CNP Unavailable [phone] Noreen Hills APRN, CNP Primary Care Provider [phone] Reason for Visit [facility] Physical Therapy (Routine) - Closed Specialty Diagnoses / Procedures Referred By Contact Refer red To Contact Diagnoses Left foot pain Right foot pain Coello's neuroma of both feet Pes cavus Peroneal tendinitis of both lower legs Agatha Null, DPM, Podiatry/Foot and Ankle Surgery [address] [place] [address] Referral ID Status Reason Start Date Expiration Date Visits Requ ested Visits Authorized [id number] Closed 01/21/2019 06/10/2019 30 30 Encounter Details Date Type Department Care Team Description 02/04/2019 Therapy Visit [facility] Marcelo Trejo, Left foot pain; Rehabilitation Services PT Right foot pain; [place] [address] Peroneal tendinitis of both lower legs; [address] [place], [place] Chronic ri ght shoulder pain [facility] [address] [address] [address] [place] [address] (Work) [phone] Social History Tobacco Use Types Packs/Day Years [...] 08/08/2019 relatives? How often do you attend anabaptism or restoration Patient refused 08/08/2019 services? Do you belong to any clubs or organizations such as No 08/08/2019 anabaptism groups, unions, fraternal or athletic groups, or [...] Associated Diagnosis Comme nts [facility] NEUROMUSCULAR Routine 02/04/2019 1:15 PM Left foot p ain RE-EDUCATION CDT Right foot pain Peroneal tendinitis of both lower le gs Chronic right shoulder pain ZZC THERAPEUTIC EXERCISES Routine 02/04/2019 1:15 PM Lef t foot pain CDT Right foot pain Peroneal tendinitis of both lower le gs Chronic right shoulder pain ZZC ELECTRIC CURRENT Routine 02/04/2019 1:15 PM Left brook t pain THERAPY CDT Right foot pain Peroneal [...] documented as of this encounter Care Teams Economic Adviser Relationship Specialty Start Date End Date Noreen Hills APRN UNCRATER PCP - General Nurse Practitioner 01/09/19 12/12/[address] [place] [address] [place] [address] Noreen Hills APRN UNCRATER Assigned PCP 06/16/[address] [place] [address] [place] [address] documented as of this encounter
--- OUTSIDE RECORDS SUMMARY | 2022-01-17 22:08 | XMS_ITS | Encounter Summary ---
:1965 Author Organization [place] Address [address] [place] [address] Care Team Providers Name Role Phone Noreen Hills APRN BEAN PICKER MACHINE OPERATOR Unavailable [phone] Noreen Hills APRN BEAN PICKER MACHINE OPERATOR Primary Care Provider [phone] Encounter Details Date Type Department Care Team Description 02/03/2019 Orders Only [facility] Noreen Hills Type 2 [facility] Pino Haley APRN mellitus wit h Laboratory BEAN PICKER MACHINE OPERATOR complication, without [address] [facility] long- term current use [facility] of insulin (H) [address] [place] [address] [place] [phone] Social History Tobacco Use Types Packs/Day Years [...] 08/08/2019 relatives? How often do you attend temple or taoism Patient refused 08/08/2019 services? Do you belong to any clubs or organizations such as No 08/08/2019 temple groups, unions, fraternal or athletic groups, or [...] Procedure Name Priority Date/Time Associated Comments Diagnosis FECAL COLORECTAL Routine 01/25/2019 7:35 AM Type 2 diabetes Re sults for this CANCER SCREEN FIT CDT mellitus with procedure are in complication, the results without long-term section. current use of insulin (H) documented in this encounter Results Fecal colorectal cancer screen (FIT) (01/25/2019 7:35 AM CDT) Analysis Performed At Patho logist Time Signature Occult Blood Negative NEG^Negati 02/01/2019 [facility] FIT ve 10:58 AM CDT [facility] Specimen Anatomical Collection Method Collection Time Receive d Time (Source) Location / / Volume Laterality Stool specimen 01/25/2019 7:35 AM 019 (specimen) CDT 10:01 AM CDT Nroeen Hills APRN, CNP LAB - STOOLS ORDERABLES Performing Organization Address City/State/ZIP Code Phon e Number [facility] [address] [place], [place] [id number] [place] [address] documented in this encounter Visit Diagnoses Diagnosis Type 2 diabetes mellitus with complicati on, without long-term current use of insulin (H) documented in this encounter Additional Health Concerns Assessment Noted Time PHQ-9 Depression Total Score: 10 01/02/2019 10:18 AM C DT documented as of this encounter Care Teams Speech And Language Tutor Relationship Specialty Start Date End Date Noreen Hills APRN CNP PCP - General Nurse Practitioner 01/09/19 12/12/21 [address] [facility] [place] [address] Noreen Hills APRN CNP Assigned PCP 06/16/18 [address] [facility] [place] [address] documented as of this encounter
--- OUTSIDE RECORDS SUMMARY | 2022-01-17 22:08 | XMS_ITS | Encounter Summary ---
:1965 Author Organization [place] Address [address] [place] [address] Care Team Providers Name Role Phone Noeren Hills APRN, CNP Unavailable [phone] Noreen Hills APRN, CNP Primary Care Provider [phone] Reason for Visit Reason Comments Medication Refill Encounter Details Date Type Department Care Team Description 05/06/2019 Refill [facility] Aleyda Guerrero MD Medication Refill [employer] 3305 [facility] 3305 [facility] [place] [address] [address] [place] [address] [phone] Social History Tobacco Use Types Packs/Day Years [...] 08/08/2019 relatives? How often do you attend mandaen or sikh Patient refused 08/08/2019 services? Do you belong to any clubs or organizations such as No 08/08/2019 mandaen groups, unions, fraternal or athletic groups, or [...] encounter Miscellaneous Notes Telephone Encounter - Christi Roldan RN - 05/07/2019 12:54 PM CST claritin D Last Written Prescription Date: 10/22/18 Last Fill Quantity: 90, # refills: 1 Last Office Visit: 01/02/19 Future Office visit: Routing refill request to provider for review/approval because: Drug not on the [facility], P or Health refill protocol or controlled substance MACHINE OPERATOR documented in this encounter Plan of Treatment Not on filedocumented as of this encounter Visit Diagnoses Diagnosis Chronic seasonal allergic rhinitis documented in this encounter Additional Health Concerns Assessment Noted Time PHQ-9 Depression Total Score: 10 01/02/2019 10:18 AM C DT documented as of this encounter Care Teams Strategic Marketing Manager Relationship Specialty Start Date End Date Noreen Hills APRN APPLIANCE SERVICER PCP - General Nurse Practitioner 01/09/19 12/12/[address] [place] [address] [place] [address] Noreen Hills APRN APPLIANCE SERVICER Assigned PCP 06/16/[address] [place] [address] [place] [id number] documented as of this encounter
--- OUTSIDE RECORDS SUMMARY | 2022-01-17 22:08 | XMS_ITS | Encounter Summary ---
:1965 Author Organization [place] Address [address] [place] [address] Care Team Providers Name Role Phone Noreen Hills APRN, CNP Unavailable [phone] Noreen Hills APRN, CNP Primary Care Provider [phone] Encounter Details Date Type Department Care Team Description 02/25/2019 Travel Social History Tobacco Use Types Packs/Day [...] How often do you attend hoahaoism or nondenominational Patient refused 08/08/2019 services? Do [...] documented as of this encounter Care Teams Fuel Island Attendant Relationship Specialty Start Date End Date Noreen Hills APRN ELECTRIC MOTOR REPAIRMAN PCP - General Nurse Practitioner 01/09/19 12/12/[address] [place] [address] [place] [phone] Noreen Hills APRN ELECTRIC MOTOR REPAIRMAN Assigned PCP 06/16/[address] [place] [address] [place] [address] documented as of this encounter
--- OUTSIDE RECORDS SUMMARY | 2022-01-17 22:09 | XMS_ITS | Encounter Summary ---
:1965 Author Organization [place] Address [address] [place] [address] Care Team Providers Name Role Phone Noreen Hills APRN, CNP Unavailable [phone] Noreen Hills APRN, CNP Primary Care Provider [phone] Encounter Details Date Type Department Care Team Description 01/10/2019 Travel Social History Tobacco Use Types Packs/Day [...] How often do you attend yazidism or buddhism Patient refused 08/08/2019 services? Do you belong [...] documented as of this encounter Care Teams Roll Over Loader Relationship Specialty Start Date End Date Noreen Hills APRN STREET SWEEPER OPERATOR PCP - General Nurse Practitioner 01/09/19 12/12/[address] [place] [address] [place] [address] [address] APRN STRE[address] SWEEPER OPERATOR Assigned PCP 06/16/[address] [place] [address] [place] [address] documented as of this encounter
--- OUTSIDE RECORDS SUMMARY | 2022-01-17 22:09 | XMS_ITS | Encounter Summary ---
:1965 Author Organization [place] Address [address] [place] [address] Care Team Providers Name Role Phone Vanda Guerrero MD Primary Care Provider [phone] Noreen Hills APRN RADIATION ONCOLOGIST Unavailable [phone] Encounter Details Date Type Department Care Team Description 08/29/2018 Travel Social History Tobacco Use Types Packs/Day [...] How often do you attend protestant or yarsani Patient refused 08/08/2019 services? Do [...] Noted Time PHQ-9 Depression Total Score: 7 06/25/2018 9:49 AM FOOD CONCESSION MANAGER documented as of this encounter Care Teams Welding Supervisor Relationship Specialty Start Date End Date Vanda Guerrero MD PCP - General Internal Medicine 04/08/15 01/08/[address] [place] [address] [place] [address] Noreen Hills APRN RADIATION ONCOLOGIST Assigned PCP 06/16/18 [address] [facility] [place] [address] documented as of this encounter
--- OUTSIDE RECORDS SUMMARY | 2022-01-17 22:09 | XMS_ITS | Encounter Summary ---
:1965 Author Organization [place] Address [address] [place] [address] Care Team Providers Name Role Phone Vanda Guerrero MD Primary Care Provider [phone] Noreen Hills APRN LOCKER OPERATOR Unavailable [phone] Reason for Visit Reason Onset Date Comments Panel Management 12/09/2018 Encounter Details Date Type Department Care Team Description 12/09/[address] [facility] Noreen Hills Management Pino Haley APRN LOCKER OPERATOR 3305 [facility] 3305 [facility] [address] [place] [address] [place] [phone] Social History Tobacco Use Types Packs/Day Years [...] How often do you attend christian or shinto Patient refused 08/08/2019 services? Do you belong [...] Telephone Encounter - Christi Panda MA - 12/16/2018 10:21 AM CDT Patient has appt scheduled for 01/02/19. Christi Panda CMA Telephone Encounter - Christi Panda MA - 12/09/2018 4:21 PM CDT Images from the original note were not included. Panel Management Review Patient has the following on her problem list: Depression / Dysthymia review Measure: Needs PHQ-9 score of 4 or less during index window. Administer PHQ-9 and if score is 5 or more, send encounter to provider for next steps. 5 - 7 month window range: PHQ-9 SCORE 06/12/2017 02/17/2018 06/25/2018 PHQ-9 Total Score - - - PHQ-9 Total Score MyChart - 8 (Mild depression) - PHQ-9 Total Score 12 8 7 If PHQ-9 recheck is 5 or more, route to provider for next steps. Patient is due for: None Diabetes ASA: Passed Last A1C Lab Results Component Value Date A1C 6.1 04/09/2018 A1C 6.7 06/12/2017 A1C 5.9 09/25/2016 A1C 6.1 03/23/2016 A1C 6.2 09/30/2015 A1C tested: Passed Last LDL: Lab Results Component Value Date CHOL 175 04/09/2018 Lab Results Component Value Date HDL 45 04/09/2018 Lab Results Component Value Date LDL 87 04/09/2018 Lab Results Component Value Date TRIG 213 04/09/2018 Lab Results Component Value Date CHOLHDLRATIO 2.5 08/10/2014 Lab Results Component Value Date NHDL 130 04/09/2018 Is the patient on a Statin? YES Is the patient on Aspirin? YES Medications HMG CoA Reductase Inhibitors simvastatin (ZOCOR) 20 MG tablet Salicylates ASPIRIN PO Last three blood pressure readings: BP Readings from Last 3 Encounters: 11/13/18 130/64 08/30/18 130/72 07/25/18 116/64 Date of last diabetes office visit: 06/25/18 Tobacco History: History Smoking Status ??? Never Smoker Smokeless Tobacco ??? Never Used Composite cancer screening Chart review shows that this patient is due/due soon for the following Fecal Colorectal (FIT) Summary: Patient is due/failing the following: TSH, A1C, FOLLOW UP and FIT Action needed: Patient needs office visit for diabetes follow up with pre-visit labs. Type of outreach: Sent [employer] message. Questions for provider review: None Christi Panda CMA Chart routed to Care Team . documented in this encounter Plan of Treatment Not on filedocumented as of this encounter Visit Diagnoses Not on filedocumented in this encounter Additional Health Concerns Assessment Noted Time PHQ-9 Depression Total Score: 7 06/25/2018 9:49 AM BUILDING OPERATOR documented as of this encounter Care Teams Tax Assessor Relationship Specialty Start Date End Date Vanda Guerrero MD PCP - General Internal Medicine 04/08/15 01/08/19 [address] [facility] [place] [address] Noreen Hills APRN LOCKER OPERATOR Assigned PCP 06/16/[address] [place] [address] [place] [phone] documented as of this encounter
--- OUTSIDE RECORDS SUMMARY | 2022-01-17 22:09 | XMS_ITS | Encounter Summary ---
:1965 Author Organization [place] Address [address] [place] [address] Care Team Providers Name Role Phone Vanda Guerrero MD Primary Care Provider [phone] Noreen Hills APRN EMAIL MARKETING MANAGER Unavailable [phone] Reason for Referral [facility] (Routine) - Closed Specialty Diagnoses / Procedures Referred By Contact Refer red To Contact Diagnoses Acute pain of right shoulder Noreen Hills APRN CNP [address] [facility] [place] [address] Referral ID Status Reason Start Date Expiration Date Visits Requ ested Visits Authorized [id number] Closed 01/02/2019 06/10/2019 30 30 onsultation (Routine) - Closed Specialty Diagnoses / Procedures Referred By Contact Refer red To Contact Podiatry Diagnoses Left foot pain Noreen Hills M [facility] RN PHYSICIAN OFFICE EMAIL MARKETING MANAGER [place] [address] [place] [address] [place] [phone] Fax: Referral ID Status Reason Start Date Expiration Date Visits Requ ested Visits Authorized [id number] Closed 01/02/2019 01/02/2020 1 1 ision Services (Routine) - Closed Specialty Diagnoses / Procedures Referred By Contact Refer red To Contact Diagnoses Type 2 diabetes mellitus with complication, without long-term current use of insulin (H) Noreen Hills M [facility] RN PHYSICIAN OFFICEAngella ROSA JACLYN [address] [place] [address] DR Nevaeh Bass [place] [address] [address] [place] [phone] Phone: Fax: Referral ID Status Reason Start Date Expiration Date Visits Requ ested Visits Authorized [id number] Closed 01/02/2019 01/02/2020 1 1 Reason for Visit Reason Comments Shoulder Pain Encounter Details Date Type Department Care Team Description 01/02/2019 Office Visit [facility] Noreen Hills APRN CNP [address] [place] [address] [place] [address] Fibromyalgia (Primary Dx); [facility] [place] 3a, Remberto Rn Pal Acute pain of right shoulder; [address] [place] [address] Left foot pain; [facility] Kali Type 2 diabetes mellitus wit h complication, without long-term current use of insulin (H) [address] [place] [phone] Social History Tobacco Use [...] How often do you attend mandaen or roman catholic Patient refused 08/08/2019 services? [...] Sign Reading Time Taken Comments Blood Pressure 118/68 01/02/2019 9:27 AM CDT Pulse 80 01/02/2019 9:27 AM CDT Temperature 36.8 ??C (98.2 ??F) 01/02/2019 9:27 AM CDT Respiratory Rate - - Oxygen Saturation 98% 01/02/2019 9:27 AM CDT Inhaled Oxygen Concentration - - Weight 84.4 kg (186 lb) 01/02/2019 9:27 AM CDT Height 157.5 cm (5' 2) 01/02/2019 9:27 AM CDT Body Mass Index 34.02 01/02/2019 9:27 AM CDT documented in this encounter Patient Instructions Patient InstructionsMoliNoreen stone APRN CNP - 01/02/2019 9:20 AM CDT [facility] (Chronic Pain, Rheumatology, and Fibromayalgia) Lashawn Esquivel & Staci Arambula [phone] Have hubby call [facility] and ask about warm pool therapy or access to the warm pool and discounted memberships. See podiatry Start physical therapy documented in this encounter Progress Notes Noreen Hills APRN CNP - 01/02/2019 9:20 AM CDT Subjective Megan Choi is a 53 year old female who presents to clinic today for the following health issues: HPI Musculoskeletal problem/pain Shoulder pain ?? Duration: ongoing for many months. ?? Description Location: Shoulder right- pain in feet. Along with all other pain. ?? Intensity: moderate ?? Accompanying signs and symptoms: Sharp, throbbing pain in right shoulder. ?? History Previous similar problem: YES Previous evaluation: none ?? Precipitating or alleviating factors: Trauma or overuse: no Aggravating factors include: none ?? Therapies tried and outcome: heat, ice and Ibuprofen- does not help. 2018 was holding on to the dog leash and pulled her onto the car. Landed on the right shoulder. Has full ROM but it hurts. Has full range of motion but it is painful to move her shoulder. No crepitus. No radiation down her arm. Has continued left foot pain. The lateral part of her left foot is numb. Sometimes she feels like the same part of her right foot is also numb. Back pain is not worse than usual, although she does havea history of L5-S1 fusion. No radiation anywhere else in the legs. She has been slowly decreasing her depression meds. Previously was on both an SSRI and SNRI. Was having abnormal leg movements. She feels her depression and anxiety are not worse since weaning. She feels that her pain is not worse since weaning. PHQ 9 is slightly worse today ROS: const/msk/neuro/psych otherwise negative OBJECTIVE: BP 118/68 (BP Location: Right arm, Patient Position: Chair, Cuff Size: Adult Regular) Pulse 80 Temp 98.2 ??F (36.8 ??C) (Oral) Ht 1.575 m (5' 2) Wt 84.4 kg (186 lb) LMP 10/30/2011 SpO2 98% BMI 34.02 kg/m?? CONSTITUTIONAL: Alert, well-nourished, well-groomed, NAD RESP: Lungs CTA. No wheeze, rhonchi, rales. CV: HRRR S1 S2 No MRG. No peripheral edema PSYCH: Bright affect. Appropriate mentation and speech. SHOULDER : No deformity. No TTP AC joint or biceps tendon. Full ROM. 5/5 strength. ASSESSMENT/PLAN: (M79.7) Fibromyalgia (primary encounter diagnosis) Comment: Ongoing. Not worse since decreasing depression meds. Flexeril has been helpful Plan: cyclobenzaprine (FLEXERIL) 10 MG tablet, DULoxetine (CYMBALTA) 30 MG capsule -Continue Cymbalta. -Continue flexeril -Referred again to Rheumatologic nurse consultants. They are covered by her insurance -Recommended warm water pool therapy at the in [place] (M25.511) Acute pain of right shoulder Comment: As above. DDX includes muscular weakness vs bursitis. No evidence of more serious pathology, but will refer to ortho if no improvement in 6 weeks. Plan: [facility] PT, HAND, AND CHIROPRACTIC REFERRAL (M79.672) Left foot pain Comment: Follows with podiatry. The numbness issue could certainly be radicular given her L5/S1 fusion but less likely given lack of worsening of LBP or any radiation to the leg. Plan: PODIATRY/FOOT & ANKLE SURGERY REFERRAL (E11.8) Type 2 diabetes mellitus with complication, without long-term current use of insulin (H) Comment: Needs recheck Plan: TSH WITH FREE T4 REFLEX, HEMOGLOBIN A1C, OPTOMETRY REFERRAL, Fecal colorectal cancer screen (FIT), Lipid panel reflex to direct LDL Fasting, Basic metabolic panel, Albumin Random Urine Quantitative with Creat Ratio, Hemoglobin A1c On ASA, statin Not on JAY. Will monitor BP and microalbumin Currently on metformin TONY Schneider-KARISSA. documented in this encounter Plan of Treatment Scheduled Referrals Name Type Priority Associated Diagnoses Order S chedule OPTOMETRY REFERRAL Referral Routine Type 2 diabetes 1 Occu rrences starting mellitus with 01/02/2019 unt il complication, without 2019 long-term current use of insulin (H) PODIATRY/FOOT & ANKLE Referral Routine Left foot pain Orde red: 01/02/2019 SURGERY REFERRAL [facility], HAND, AND Referral Routine Acute pain of right 1 O ccurrences starting CHIROPRACTIC REFERRAL shoulder 2018 until 01/03/2020 documented as of this encounter Procedures Procedure Name Priority Date/Time Associated Diagnosis Comme nts HEMOGLOBIN A1C Routine 01/02/2019 9:56 AM Type 2 diabetes Resu lts for this CDT mellitus with procedure are in the complication, without result s section. long-term current use of insulin (H) documented in this encounter Results Fecal colorectal cancer screen (FIT) (01/25/2019 7:35 AM CDT) Analysis Performed At Patho logist Time Signature Occult Blood Negative NEG^Negati 02/01/2019 [facility] FIT ve 10:58 AM CDT [facility] Specimen Anatomical Collection Method Collection Time Receive d Time (Source) Location / / Volume Laterality Stool specimen 01/25/2019 7:35 AM 019 (specimen) CDT 10:01 AM CDT Noreen Hills APRN EMAIL MARKETING MANAGER LAB - STOOLS ORDERABLES Performing Organization Address City/State/ZIP Code Phon e Number [facility] [address] [place], [place] [phone] [place] [address] (ABNORMAL) Hemoglobin A1c (01/02/2019 9:56 AM CDT) P athologist Signature Hemoglobin A1C 6.2 (H) 0 - 5.6 % 01/02/2019 [facility] 10:24 AM CDT [facility] Comment: Normal <5.7% Prediabetes 5.7-6.4% ??Diab etes 6.5% or higher - adopted from ADA consensus guidelines. Specimen Anatomical Collection Method Collection Time Receive d Time (Source) Location / / Volume Laterality Blood specimen 01/02/2019 9:56 AM 019 (specimen) CDT 10:01 AM CDT Noreen Hills APRN, CNP LAB - BLOOD ORDERABLES Performing Organization Address City/State/ZIP Code Phon e Number [facility] [address] [facility] [place] [address] [phone] documented in this encounter Visit Diagnoses Diagnosis Fibromyalgia - Primary Mylagia and myositis, unspecified Acute pain of right shoulder Left foot pain Pain in limb Type 2 diabetes mellitus with complicati on, without long-term current use of insulin (H) documented in this encounter Additional Health Concerns Assessment Noted Time PHQ-9 Depression Total Score: 10 01/02/2019 10:18 AM C DT documented as of this encounter Care Teams Employment Advisor Relationship Specialty Start Date End Date Vanda Guerrero MD PCP - General Internal Medicine 04/08/15 01/08/[address] [place] [address] [place] [address] Noreen Hills APRN CNP Assigned PCP 06/16/[address] [place] [address] [place] [address] documented as of this encounter
--- OUTSIDE RECORDS SUMMARY | 2022-01-17 22:09 | XMS_ITS | Encounter Summary ---
:1965 Author Organization [place] Address [address] [place] [address] Care Team Providers Name Role Phone Vanda Guerrero MD Primary Care Provider [phone] Vanda Guerrero MD Unavailable Reason for Visit Reason Comments Medication Refill methocarbamol (ROBAXIN) 500 MG tablet Encounter Details Date Type Department Care Team Description 05/28/2018 Refill [facility] Vanda Guerrero M edication Refill Clinic [facility]DANA (methocarbamol [address] [place] [address] [facility] 500 MG [facility] DR tablet) [address] [place] [address] [place] [address] [phone] Social History Tobacco Use Types Packs/Day Years [...] 08/08/2019 relatives? How often do you attend holiness or judaism Patient refused 08/08/2019 services? Do you belong to any clubs or organizations such as No 08/08/2019 holiness groups, unions, fraternal or athletic groups, or [...] encounter Miscellaneous Notes Telephone Encounter - Marisa Matthew - 05/29/2018 8:02 AM CST Requested Prescriptions Pending Prescriptions Disp Refills ??? methocarbamol (ROBAXIN) 500 MG tablet [Pharmacy Med Name: METHOCARBAMOL 500 MG TABLET] Last Written Prescription Date: 02/18/2018 Last Fill Quantity: 90, # refills: 3 Last Office Visit: 04/09/2018 Future Office visit: Routing refill request to provider for review/approval because: Drug not on the [facility] or [facility] refill protocol or controlled substance 90 tablet 3 Sig: TAKE 1-2 TABLETS (500-1,000 MG) BY MOUTH 3 TIMES DAILY NEEDED FOR MUSCLE SPASMS There is no refill protocol information for this order DELIVERY SUPERVISOR documented in this encounter Plan of Treatment Not on filedocumented as of this encounter Visit Diagnoses Diagnosis Muscle spasm Spasm of muscle documented in this encounter Additional Health Concerns Assessment Noted Time PHQ-9 Depression Total Score: 8 02/18/2018 7:04 AM CDT documented as of this encounter Care Teams Entertainment Manager Relationship Specialty Start Date End Date Vanda Guerrero MD PCP - General Internal Medicine 04/08/15 01/08/19 [address] [facility] [place] [address] Vanda Guerrero MD PCP - Assigned PCP 07/24/16 06/15/18 [address] [facility] [place] [id number] documented as of this encounter
--- OUTSIDE RECORDS SUMMARY | 2022-01-17 22:09 | XMS_ITS | Encounter Summary ---
:1965 Author Organization [place] Address [address] [place] [address] Care Team Providers Name Role Phone Vanda Guerrero MD Primary Care Provider [phone] Vanda Guerrero MD Unavailable Reason for Visit Reason Onset Date Comments Refill Request 02/15/2018 methocarbamol (ROBAX IN) 500 MG tablet Encounter Details Date Type Department Care Team Description 02/15/2018 Refill [facility] Vanda Guerrero R efill Request Clinic [facility] (methocarbamol [address] [place] [facility] ([facility]ESS[facility]) 500 MG [facility] [address] tablet) [address] [place] [address] [place] [id number] [phone] Social History Tobacco Use Types Packs/Day Years [...] How often do you attend muslim or quaker Patient refused 08/08/2019 services? Do [...] Telephone Encounter - Liya Gonzalez RN - 02/17/2018 9:11 PM CDT Routing refill request to provider for review/approval because: Drug not on the [facility] refill protocol Telephone Encounter - Efren Pryor - 02/15/2018 8:33 PM CDT Requested Prescriptions Pending Prescriptions Disp Refills ??? methocarbamol (ROBAXIN) 500 MG tablet [Pharmacy Med Name: METHOCARBAMOL 500 MG TABLET] Last Written Prescription Date: 06/12/2017 Last Fill Quantity: 90 tablet, # refills: 5 Last Office Visit: 06/12/2017 Future Office Visit: 90 tablet 0 Sig: TAKE 1-2 TABLETS (500-1,000 MG) BY MOUTH 3 TIMES DAILY NEEDED FOR MUSCLE SPASMS There is no refill protocol information for this order documented in this encounter Plan of Treatment Not on filedocumented as of this encounter Visit Diagnoses Diagnosis Muscle spasm Spasm of muscle documented in this encounter Additional Health Concerns Assessment Noted Time PHQ-9 Depression Total Score: 12 06/12/2017 1:02 PM CS T documented as of this encounter Care Teams Ergonomist Relationship Specialty Start Date End Date Vanda Guerrero MD PCP - General Internal Medicine 04/08/15 01/08/[address] [place] [address] [place] [id number] Vanda Guerrero MD PCP - Assigned PCP 07/24/16 06/15/[address] [place] [address] [place] [id number] documented as of this encounter
--- OUTSIDE RECORDS SUMMARY | 2022-01-17 22:09 | XMS_ITS | Encounter Summary ---
:1965 Author Organization [place] Address [address] [place] [address] Care Team Providers Name Role Phone Vanda Guerrero MD Primary Care Provider [phone] Vanda Guerrero MD Unavailable Reason for Visit Reason Comments Medication Refill metFORMIN (GLUCOPHAGE) 500 M G tablet Encounter Details Date Type Department Care Team Description 05/23/2018 Refill [facility] Vanda Guerrero M edication Refill Clinic [place] [facility] (metFORMIN (GLUCOPHAGE) [address] [place] [address] [facility] 500 M G tablet) [facility] [address] [place] [address] [place] [id number] [phone] Social History Tobacco Use Types Packs/Day Years [...] How often do you attend episcopalian or nondenominational Patient refused 08/08/2019 services? Do [...] this encounter Miscellaneous Notes Telephone Encounter - Lori Weber - 06/03/2018 8:18 AM PODIATRY ASSISTANT Type of outreach: Phone, spoke to patient. Scheduled pt for appt 06/14/18 Health Maintenance Due Topic Date Due ??? ZOSTER IMMUNIZATION (1 of 2) 2013 ??? FOOT EXAM Q1 YEAR 12/21/2016 ??? EYE EXAM Q1 YEAR 12/21/2016 ??? FIT Q1 YR 01/06/2017 ??? MAMMO SCREEN Q2 YR (SYSTEM ASSIGNED) 09/29/2017 ??? INFLUENZA VACCINE (1) 02/09/2018 ??? ADVANCE DIRECTIVE PLANNING Q5 YRS 2018 Lori Weber MA ATRY ASSISTANT Telephone Encounter - Adali Pierson - 05/27/2018 2:45 PM CST LVM for patient to callback. Thanks Chema Allan Team Coodinator ATRY ASSISTANT Telephone Encounter - Gayathri Mcallister RN - 05/27/2018 11:47 AM PODIATRY ASSISTANT TC-please call patient to schedule: Return in about 1 week (around 04/16/2018) for Establish care/DM with Florentino, then to lab, please ask if she wants flu. Prescription approved per [facility] Refill Protocol. Gayathri Mcallister RN Message handled by Nurse Triage. ATRY ASSISTANT Telephone Encounter - Marisa Matthew - 05/23/2018 8:34 AM CST Requested Prescriptions Pending Prescriptions Disp Refills ??? metFORMIN (GLUCOPHAGE) 500 MG tablet [Pharmacy Med Name: METFORMIN HCL 500 MG TABLET] Last Written Prescription Date: 12/11/2017 Last Fill Quantity: 60, # refills: 0 Last office visit: 04/09/2018 with prescribing provider: Vanda Guerrero Future Office Visit: 180 tablet 1 Sig: TAKE 1 TABLET BY MOUTH TWICE DAILY WITH MEALS. Biguanide Agents Passed - 05/23/2018 5:49 AM Passed - Blood pressure less than 140/90 in past 6 months BP Readings from Last 3 Encounters: 04/09/18 106/64 07/10/17 118/72 06/27/17 124/77 Passed - Patient has documented LDL within the past 12 mos. Recent Labs Lab Test 04/09/18 1009 LDL 87 Passed - Patient has had a Microalbumin [...] past 6 months. Recent Labs Lab Test 04/09/18 1009 A1C 6.1* Passed - Patient's CR is NOT>1.4 OR Patient's EGFR is NOT<45 within past 12 mos. Recent Labs Lab Test 04/09/18 1009 GFRESTIMATED 78 GFRESTBLACK >90 Recent Labs Lab Test 04/09/18 1009 CR 0.77 Passed - Patient does NOT have a diagnosis of CHF. Passed - Patient is not Passed - [...] & Orders section of the refill encounter. ATRY ASSISTANT documented in this encounter Plan of Treatment Not on filedocumented as of this encounter Visit Diagnoses Diagnosis Type 2 diabetes mellitus without complic ation, without long-term current use of insulin (H) documented in this encounter Additional Health Concerns Assessment Noted Time PHQ-9 Depression Total Score: 8 02/18/2018 7:04 AM CDT documented as of this encounter Care Teams Envelope Addresser Relationship Specialty Start Date End Date Vanda Guerrero MD PCP - General Internal Medicine 04/08/15 01/08/19 [address] [facility] [place] [address] Vanda Guerrero MD PCP - Assigned PCP 07/24/16 06/15/18 [address] [facility] [place] [address] documented as of this encounter
--- OUTSIDE RECORDS SUMMARY | 2022-01-17 22:09 | XMS_ITS | Encounter Summary ---
:1965 Author Organization [place] Address [address] [place] [address] Care Team Providers Name Role Phone Vanda Guerrero MD Primary Care Provider [phone] Vanda Guerrero MD Unavailable Reason for Visit Reason Onset Date Comments Refill Request 02/15/2018 topiramate (TOPAMAX) 50 MG tablet Refill Request 02/15/2018 citalopram (CELEXA) 20 MG tablet Encounter Details Date Type Department Care Team Description 02/15/2018 Refill [facility] Vanda Guerrero R efill Request Clinic [place] [facility] (topiramate (TOPAMAX) [address] [facility] 50 MG tablet); Refill [facility] [address] Request (citalopram [address] [place] [address] (CELEXA) 20 MG tablet) [place] [phone] Social History Tobacco Use Types Packs/Day Years [...] How often do you attend caodaism or advent Patient refused 08/08/2019 services? Do you belong [...] Telephone Encounter - Liya Gonzalez RN - 02/19/2018 7:41 AM CDT PHQ-9 SCORE 10/11/2016 06/12/2017 02/17/2018 Total Score - - - Total Score MyChart - - 8 (Mild depression) Total Score 9 12 8 phq9 out of protocol range. Thea Gonzalez RN BSN [facility] [phone] Telephone Encounter - Liya Gonzalez RN - 02/17/2018 9:25 PM CDT phq9 sent via [employer]. Topiramate dx is Fibromyalgia and obesity Thea Gonzalez RN BSN [facility] [phone] Telephone Encounter - Efren Pryor - 02/15/2018 8:28 PM CDT Requested Prescriptions Pending Prescriptions Disp Refills ??? topiramate (TOPAMAX) 50 MG tablet [Pharmacy Med Name: TOPIRAMATE 50 MG TABLET] Last Written Prescription Date: 12/15/2016 Last Fill Quantity: 180 tablet, # refills: 3 Last Office Visit: 06/12/2017 Future Office Visit: 180 tablet 3 Sig: TAKE 1 TABLET (50 MG) BY MOUTH 2 TIMES DAILY Anti-Seizure Meds Protocol Failed 02/15/2018 3:38 PM Failed - Review Authorizing provider's last note. Refer to last progress notes: confirm request is for original authorizing provider (cannot be through other providers). Passed - Recent (12 mo) or future (30 days) visit within the authorizing provider's specialty Patient had office visit in the last 12 months or has a visit in the next 30 days with authorizing provider or within the authorizing provider's specialty. See Patient Info tab in inbasket, or Choose Columns in Meds & Orders section of the refill encounter. Passed - Normal CBC on file in past 26 months Recent Labs Lab Test 09/25/16 1430 WBC 6.4 RBC 3.97 HGB 12.6 HCT 38.1 PLT 229 For [facility] ONLY: PEWD562 = WBC, FKUW177 = RBC Passed - Normal ALT or AST on file in past 26 months Recent Labs Lab Test 06/12/17 1255 ALT 31 Recent Labs Lab Test 06/12/17 1255 AST 25 Passed - Normal platelet count on file in past 26 months Recent Labs Lab Test 09/25/16 1430 PLT 229 Passed - No active on record Passed - No positive test in last 12 months ??? citalopram (CELEXA) 20 MG tablet [Pharmacy Med Name: CITALOPRAM HBR 20 MG TABLET] Last Written Prescription Date: 06/12/2017 Last Fill Quantity: 135 tablet, # refills: 3 Last Office Visit: 06/12/2017 Future Office Visit: 135 tablet 3 Sig: TAKE 1.5 TABLETS (30 MG) BY MOUTH DAILY SSRIs Protocol Failed 02/15/2018 3:38 PM Failed - PHQ-9 score less than 5 in past 6 months Please review last PHQ-9 score. PHQ-9 SCORE 05/01/2016 10/11/2016 06/12/2017 Total Score - - - Total Score MyChart 11 (Moderate depression) - - Total Score - 9 12 Failed - Recent (6 mo) or future (30 days) visit within the authorizing provider's specialty Patient had office visit in the last 6 months or has a visit in the next 30 days with authorizing provider or within the authorizing provider's specialty. See Patient Info tab in inbasket, or Choose Columns in Meds & Orders section of the refill encounter. Passed - Patient is age 18 or older Passed - No active on record Passed - No positive test in last 12 months documented in this encounter Plan of Treatment Not on filedocumented as of this encounter Visit Diagnoses Diagnosis Fibromyalgia Mylagia and myositis, unspecified Non morbid obesity, unspecified obesity type Anxiety Anxiety state, unspecified Moderate episode of recurrent major depr essive disorder (H) documented in this encounter Additional Health Concerns Assessment Noted Time PHQ-9 Depression Total Score: 12 06/12/2017 1:02 PM CS T documented as of this encounter Care Teams Electric Appliance Installer Relationship Specialty Start Date End Date Vanda Guerrero MD PCP - General Internal Medicine 04/08/15 01/08/[address] [place] [address] Vanda Guerrero MD PCP - Assigned PCP 07/24/16 06/15/[address] [place] [address] documented as of this encounter
--- OUTSIDE RECORDS SUMMARY | 2022-01-17 22:09 | XMS_ITS | Encounter Summary ---
:1965 Author Organization [facility] Address [address] [place] [id number] Care Team Providers Name Role Phone Noreen Hills APRN, CNP Unavailable [phone] Noreen Hills APRN, CNP Primary Care Provider [phone] Reason for Referral (Routine) - Closed Specialty Diagnoses / Procedures Referred By Contact Refer red To Contact Diagnoses Left foot pain Right foot pain Moran's neuroma of both feet Pes cavus Peroneal tendinitis of both lower legs Agatha Nieves DPM, Procedures TRIAMCINOLONE ACET INJ NOS Podiatry/Foot and Ankle Surgery [address] [place] [address] Referral ID Status Reason Start Date Expiration Date Visits Requ ested Visits Authorized [id number] Closed 01/21/2019 01/21/2020 1 1 A Physical Therapy (Routine) - Closed Specialty Diagnoses / Procedures Referred By Contact Refer red To Contact Diagnoses Left foot pain Right foot pain Moran's neuroma of both feet Pes cavus Peroneal tendinitis of both lower legs Agatha Nieves DPM, Podiatry/Foot and Ankle Surgery [address] [facility] [address] [address] [place] [address] Referral ID Status Reason Start Date Expiration Date Visits Requ ested Visits Authorized [id number] Closed 01/21/2019 06/10/2019 30 30 iagnostic Imaging XR (Routine) - Closed Specialty Diagnoses / Procedures Referred By Contact Refer red To Contact Diagnoses Left foot pain Agatha Nieves DPM, Procedures XR Foot Left G/E 3 Views Podiatry/Foot and Ankle Surgery [id number] [place] [address] [address] [place] [address] Referral ID Status Reason Start Date Expiration Date Visits Requ ested Visits Authorized [id number] Closed 01/21/2019 01/21/2020 1 1 Reason for Visit Reason Comments Pain Encounter Details Date Type Department Care Team Description 01/21/2019 Office Visit [facility] Agatha Nieves, Left fo ot pain (Primary Dx); [facility] [place] [facility], Podiatry/Foot Right foot pain; [address] [facility] and [facility]le Surgery Moran's neuroma of both feet; [place] [address] Seda hwang; [id number] [address] Peroneal tendinitis of both lower legs; [phone] [place], [place] Type 2 diabet es mellitus without complication, without long-term current use of insulin (H) [address] (Wo rk) Social History Tobacco Use Types Packs/Day Years Used Date Never Smoker Smokeless Tobacco: Never Used Tobacco Cessation: Counseling Given: No Alcohol Use Standard Drinks/Week Comments Yes 0 [...] 08/08/2019 relatives? How often do you attend alevism or sabianist Patient refused 08/08/2019 services? Do you belong to any clubs or organizations such as No 08/08/2019 alevism groups, [employer], [email or web address] or athletic groups, or school groups? How [...] Sign Reading Time Taken Comments Blood Pressure 110/60 01/21/2019 10:27 AM CDT Pulse - - Temperature - - Respiratory Rate - - Oxygen Saturation - - Inhaled Oxygen Concentration - - Weight 84.4 kg (186 lb) 01/21/2019 10:27 AM CDT Height 157.5 cm (5' 2) 01/21/2019 10:27 AM CDT Body Mass Index 34.02 01/21/2019 10:27 AM CDT documented in this encounter Patient Instructions Patient InstructionsParag Andrea - 01/21/2019 10:30 AM CDT Thank you for choosing [facility]! [facility] SCHEDULE SUNDAY AM - [place] SUNDAY - [place] [facility] [facility] [address] [place] [address] [place] [address] / FX [phone] / FX [phone] SUNDAY - [place] SUNDAY AM - [facility] [address] [address] [place] [address] [place] [address] / FX [phone] SUNDAY PM - [place] SCHEDULE SURGERY: [phone] [facility] [address] BILLING QUESTIONS: [phone] [place] [address] AFTER HOURS: [phone] / FX [phone] APPOINTMENTS: [phone] [facility] (CPL) [phone] PHYSICAL THERAPY REFERRAL [facility] ([facility]) [phone] MORAN'S NEUROMA Moran's neuroma is an enlargement or thickening of a nerve in the foot. It is also sometimes referred to as an intermetatarsal neuroma, interdigital neuroma, Moran's metatarsalgia (pain in the metatarsal head area), trell-neural fibrosis (scar tissue around a nerve) or entrapment neuropathy (abnormalnerve due to compression). A Moran's neuroma most commonly occurs in the third interspace between the third and fourth toes, followed by the second interspace between the second and third toes. Moran's neuromas have also occurred in the fourth and first interspaces, but these are rare. If you have aMorton's neuroma, there is a 15% chance it will occur bilaterally (on both feet). Moran's neuromas occur most commonly in women who are between 30 to 50 years old. The reason they are more common in women is thought to be due to the shoes women wear. CAUSES: A Moran's neuroma is thought to be caused by trauma to the nerve, but scientists are still not sure about the exact cause of the trauma. The trauma may be caused by the metatarsal heads, the deep transverse intermetatarsal ligament (holds the metatarsal heads together) or an intermetatarsal bursa (fluid-filled sac). All of these structures can cause compression/trauma on the nerve which initially causes swelling and injury in the nerve. Over time if the compression/trauma continues, the nerve repairs itself with very fibrous tissue that leads to enlargement and thickening of the nerve. Other causes of trauma to the nerve may include; overpronation (foot rolls inward), hypermobility (too mu ch motion), cavo varus (high arch foot) and excessive dorsiflexion (toes bend upward) of the toes. These biomechanical (howthe foot moves) factors may cause trauma to the nerve with every step. If the nerve becomes irritated and enlarged then it takes up more space and gets even more compressed and irritated. It becomes a vicious cycle. SIGNS & SYMPTOMS - Pain (sharp, stabbing, throbbing, shooting) - Numbness - Tingling or pins & needles - Burning - Cramping - Feeling that you are stepping on something or that something is in your shoe - Initially the symptoms may happen once in a while, but as the condition gets worse, the symptoms may happen all of the time - It usually feels better by taking off your shoe and massaging your foot DIAGNOSIS: Your lozenge dough mixer will ask many questions about your signs and symptoms and will perform a physical exam. Some of the exams may include a web space compression test. This is done by squeezing the metatarsals together with one hand and using the thumb and index finger of the other hand to compress the affected web space to reproduce the pain/symptoms. A palpable click (Emiliano's click) is usually present. This test may also cause pain to shoot into the toes and that is called a Tinel's sign. Benjamin's test involves squeezing the metatarsals together and moving the toes up and down for 30 seconds. This will usually cause pain or it will bring on your other symptoms. Calix's sign is positive when you stand and the affected toes spread apart. A Moran's neuroma is usually diagnosed based on the history and physical exam findings, but sometimes other tests such as an x-ray, ultrasound or an MRI are needed. TREATMENT 1. Footwear Changes: Wear shoes that are wide and deep in the toe box so they do not put pressure onyour toes and metatarsals. Avoid wearing high heels because they cause increased pressure on the ball of your foot (forefoot). 2. Metatarsal Pads: These help to lift and separate the metatarsal heads to take pressure off of thenerve. They are placed just behind where you feel the pain, not on top of the painful spot. 3. Activity modification: For example, you may try swimming instead of running until your symptoms go away. 4. Taping 5. Icing 6. NSAIDs (anti-inflammatories): aleve, ibuprofen, etc. 7. Arch Supports or Orthotics: These help to control some of the abnormal motion in your feet. The abnormal motion can lead to extra torque and pressure on the nerve. 8. Physical Therapy 9. Cortisone Injection: Helps to decrease the size of the irritated, enlarged nerve. 10. Sclerosing Alcohol Injection: Helps to destroy the nerve chemically, which causes permanent numbness SURGERY If conservative treatment does not help surgery may be needed. Surgery may involve cutting out the nerve or cutting the intermetatarsalligament. Studies have shown surgery has an 80-85% success rate. Will result in numbness PREVENTION -Avoid wearing narrow, pointed toe shoes, or high heels TENDONITIS Tendons are the strong fibrous portions ofmuscles that attach to bones and allow the muscle to move a joint when it contracts. Tendons are very strong because they have a lot of force exerted on them. Sometimes tendons can become painful because they have suffered an acute injury, in which too much force was exerted at one time, or an overuse injury, in which a normal force was exerted too frequentlyor over a prolonged period of time. As a result, there is damage to the tendon and its surrounding soft tissue structures and they become inflammed. Because tendons do not have a great blood supply, they do not heal rapidly and the inflammation can become chronic. Conservative treatment for tendinitis involves rest and anti-inflammatory measures. Ice is applied 15 minutes 2-3 times daily. Anti-inflammatory medications called NSAIDs (ibuprofen, example) can be taken provided they are used with caution, as they can lead to internal bleeding and increase the risk o fstroke and heart attack. Sometimes topical nitroglycerin is prescribed to help with pain. Often your doctor will use a special shoe or removable walking cast to immobilize the tendon, allowing it to heal without further damage from use. These devices are very useful in helping tendons heal, but they may slow you down or make you feel like your hip, knee, or back are out ofalignment. This is temporary and should go away once you are out ofthe immobilization. You should not use a walking cast when showering or driving. Another option is Platelet Rich Plasma injections. (Normally done with a Sports and Orthorapedic doctor. If conservative measures fail, your physician may need to surgically repair the tendon by removing any chronic inflammatory tissue and sewing it back together. Sometimes it is sewn to an adjacent tendon with similar function for support and sometimes it is lengthened. . Sometimes the bones around the tendon need to be realigned or reshaped to better support the tendon or prevent further damage. Your foot and ankle surgeon will discuss the specifics of your surgery with you, should you need it. Towel stretch: Sit on a hard surface with your injured leg stretched out in front of you. Loop a towel around your toes and the ball of your foot and pull the towel toward your body keeping your leg straight. Hold this position for 15 to 30 seconds and then relax. Repeat 3 times. Then push the towel away with the ball of your foot. Repeat 3 times. When you don't feel much of a stretch using the towel, you can start the standing calf stretch and the following exercises. Standing calf stretch: Stand facing a wall with your hands on the wall at about eye level. Keep yourinjured leg back with your heel on the floor. Keep the other leg forward with the knee bent. Turn your back foot slightly inward (as if you were pigeon-toed). Slowly lean into the wall until you feel astretch in the back of your calf. Hold the stretch for 15 to 30 seconds. Return to the starting position. Repeat 3 times. Do this exercise several times each day. Standing soleus stretch: Stand facing a wall with your hands on the wall at about chest height. Keepyour injured leg back with your heel on the floor. Keep the other leg forward with the knee bent. Turn your back foot slightly inward (as if you were pigeon-toed). Bend your back knee slightly and gently lean into the wall until you feel a stretch in the lower calf of your injured leg. Hold the stretch for 15 to 30 seconds. Return to the starting position. Repeat 3 times. Achilles stretch: Stand with the ball of one foot on a stair. Reach for the step below with your heel until you feel a stretch in the arch of your foot. Hold this position for 15 to 30 seconds and thenrelax. Repeat 3 times. Heel raise: Balance yourself while standing behind a chair or counter. Using the chair or counter asa support to help you, raise your body up onto your toes and hold for 5 seconds. Then slowly lower yourself down without holding onto the support. (It's OK to keep holding onto the support if you need to.) When this exercise becomes less painful, try lowering yourself down on the injured leg only. Repeat 15 times. Do 2 sets of 15. Rest 30 seconds between sets. Step-up: Stand with the foot of your injured leg on a support 3 to 5 inches high (like a small step or block of wood). Keep your other foot flat on the floor. Shift your weight onto the injured leg on the support. Straighten your injured leg as the other leg comes off the floor. Return to the startingposition by bending your injured leg and slowly lowering your uninjured leg back to the floor. Do 2 sets of 15. Resisted ankle eversion: Sit with both legs stretched out in front of you, with your feet about a shoulder's width apart. Tie a loop in one end of elastic tubing. Put the foot of your injured leg through the loop so that the tubing goes around the arch of that foot and wraps around the outside of the other foot. Hold onto the other end of the tubing with your hand to provide tension. Turn the foot ofyour injured leg up and out. Make sure you keep your other foot still so that it will allow the tubing to stretch as you move the foot of your injured leg. Return to the starting position. Do 2 sets of15. Balance and reach exercises: Stand next to a chair with your injured leg farther from the chair. Thechair will provide support if you need it. Stand on the foot of your injured leg and bend your knee slightly. Try to raise the arch of this foot while keeping your big toe on the floor. Keep your foot in this position. With the hand that is farther away from the chair, reach forward in front of you bybending at the waist. Avoid bending your knee any more as you do this. Repeat this 10 times. To makethe exercise more challenging, reach farther in front of you. Do 2 sets of 10. lap winder the same position as above. While keeping your arch height, reach the hand that is farther away from the chair across your body toward the chair. The farther you reach, the more challenging the exercise. Do 2 sets of 10. ?? Resisted ankle eversion: Sit with both legs stretched out in front of you, with your feet about ashoulder's width apart. Tie a loop in one end of elastic tubing. Put the foot of your injured leg through the loop so that the tubing goes around the arch of that foot and wraps around the outside of the other foot. Hold onto the other end of the tubing with your hand to provide tension. Turn the footof your injured leg up and out. Make sure you keep your other foot still so that it will allow the tubing to stretch as you move the foot of your injured leg. Return to the starting position. Do 2 setsof 15. If you have access to a wobble board, do the following exercises: Wobble board exercises: Stand on a wobble board with your feet shoulder width apart. Rock the board forwards and backwards 30 times, then side to side 30 times. Hold on to a chair if you need support. Rotate the wobble board around so that the edge of the board is in contact with the floor at all times. Do this 30 times in a clockwise and then a counterclockwise direction. Balance on the wobble board for as long as you can without letting the edges touch the floor. Try todo this for 2 minutes without touching the floor. Rotate the wobble board in clockwise and counterclockwise circles, but do not let the edge of the board touch the floor. When you have mastered exercises A through D, try repeating them while standing on just your injuredleg. After you are able to do these exercises on one leg, try to do them with your eyes closed. Make sureyou have something nearby to support you in case you lose your balance. BODY WEIGHT AND YOUR FEET The following information is included in the after visit summary for all patients. Body weight can be a sensitive issue to discuss in clinic, but we think the following information is very important. Although we focus on the feet and ankles, we do support the overall health of our patients. Many things can cause foot and ankle problems. Foot structure, activity level, foot mechanics and injuries are common causes of pain. One very important issue that often goes unmentioned, is body weight. Extra weight can cause increased stress on muscles, ligaments, bones and tendons. Sometimes just afew extra pounds is all it takes to put one over her/his threshold. Without reducing that stress, itcan be difficult to alleviate pain. As Foot & Ankle specialists, our job is addressing the lowerextremity problem and possible causes. Regarding extra body weight, we encourage patients to discussdiet and weight management plans with their primary care doctors. It is this team approach that gives you the best opportunity for pain relief and getting you back on your feet. [facility] has a Comprehensive Weight Management Program. This program includes counseling, education,non-surgical and surgical approaches to weight loss. If you are interested in learning more either talk to you primary care provider or call [phone]. documented in this encounter Progress Notes Agatha Nieves DPM, Podiatry/Foot and Ankle Surgery - 01/21/2019 10:30 AM CDT PATIENT HISTORY: Nroeen Hills APRN requested I see this patient for their foot issue. Megan Choi is a 53 year old female who presents to clinic for pain to both feet. Notes left is worse. Had surgery for peroneal tendon repair approximately 2 1/2 years ago. Note spin is 8/10. States it is a sharp piercing pain. Notes right foot is starting to feel that way a little but not as painful as left. Patient is diabetic. Denies specific injury. Review of Systems: Patient denies fever, chills, rash, wound, stiffness, numbness, weakness, heart burn, blood in stool, chest pain with activity, calf pain when walking, shortness of breath with activity, chronic cough, easy bleeding/bruising, swelling of ankles, excessive thirst, fatigue, depression, anxiety. Patient admits to limping. PAST MEDICAL HISTORY: Past Medical History: Diagnosis Date ??? Arthritis ??? Diabetes mellitus (H) Type 2 ??? Dvt femoral (deep venous thrombosis) (H) 04/17 post surgical, stopped coumadin 01/16 ??? IFG (impaired fasting glucose) 10/03/2015 PAST SURGICAL HISTORY: Past Surgical History: Procedure Laterality Date ??? C SPINAL FUSION,ANT,EA ADNL LEVEL 2004 L5, S1, Repeated in 2005 ??? C SPINAL FUSION,ANT,EA ADNL LEVEL 2006 SI joints ??? C SPINAL FUSION,ANT,EA ADNL LEVEL 2000 C5-C7 fused ??? SECTION ??? ENT SURGERY T&A < 10 y/o ??? REPAIR TENDON PERONEAL Left 06/08/2016 Procedure: REPAIR TENDON PERONEAL; Surgeon: Agatha Nieves, DPM, Pod; Location: OR MEDICATIONS: Current Outpatient Medications: ??? Acetaminophen (TYLENOL PO), Take 1,000 mg by mouth daily as needed for mild pain or fever, Disp:, Rfl: ??? ASPIRIN PO, Take 81 mg by [...] CAPSULE (30 MG) BY MOUTH 2 TIMES DAILY, Disp: 180 capsule, Rfl: 3 ??? fluticasone (FLONASE) 50 MCG/ACT spray, [place] 1-2 sprays into both nostrils daily, Disp: 3 Bottle, Rfl: 3 ??? IBUPROFEN PO, Take 800 mg by mouth daily as needed for moderate pain, Disp: , Rfl: ??? loratadine-pseudoePHEDrine ([employer] ALLERGY RELIEF-D) 10-240 MG 24 hr tablet, Take 1 tablet by mouthdaily, Disp: 90 tablet, Rfl: 1 ??? metFORMIN (GLUCOPHAGE) 500 MG tablet, TAKE 1 TABLET (500 MG) BY MOUTH 2 TIMES DAILY (WITH MEALS), Disp: 60 tablet, Rfl: 0 ??? multivitamin, therapeutic with minerals (MULTI-VITAMIN) TABS, Take 1 tablet by mouth daily, Disp: , Rfl: ??? omeprazole (PRILOSEC) [address] capsule, TAKE 2 CAPSULES (40 MG) BY MOUTH DAILY -DOSE INCREASE, Disp: 180 capsule, Rfl: 0 ??? DGP LabsTOUCH ULTRA test strip, USE TO TEST BLOOD SUGARS 1 TIMES DAILY OR DIRECTED., Disp: 100 strip, Rfl: 0 ??? psyllium (METAMUCIL/KONSYL) 0.52 g capsule, Take 1-2 capsules (0.52-1.04 g) by mouth daily, Disp: 180 capsule, Rfl: 3 ??? simvastatin (ZOCOR) 20 MG tablet, TAKE 1 TABLET (20 MG) BY MOUTH AT BEDTIME, Disp: 90 tablet, Rfl: 3 ??? SUMAtriptan (IMITREX) 25 MG tablet, TAKE 1 TO 2 TABLETS BY MOUTH ONCE FOR MIGRAINE. OK TO REPEATX 1 AFTER 2HOURS. MAX 12TAB/25DAYS INS, Disp: 18 tablet, Rfl: 5 ??? topiramate (TOPAMAX) 50 MG tablet, TAKE 1 TABLET (50 MG) BY MOUTH 2 TIMES DAILY, Disp: 180 tablet, Rfl: 3 ??? zolpidem (AMBIEN) 5 MG tablet, TAKE ONE TABLET BY MOUTH NIGHTLY AT BEDTIME NEEDED FOR SLEEP, Disp: 60 tablet, Rfl: 5 ? ? JAY/ARB NOT PRESCRIBED, INTENTIONAL,, 1 each daily JAY & ARB not prescribed due to not needed (Patient not taking: Reported on 08/21/2017), Disp: , Rfl: ALLERGIES: Allergies Allergen Reactions ??? Erythromycin Rash SOCIAL HISTORY: Social History Socioeconomic History ??? Marital status: Spouse name: Not on file ??? Number of children: Not on file ??? Years of education: Not on file ??? Highest education level: Not on file Occupational History ??? 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 Financial resource strain: Not on file ??? Food insecurity: Worry: Not on file Inability: Not on file ??? Transportation needs: Medical: Not on file Non-medical: Not on file Tobacco Use ??? Smoking status: Never Smoker ??? Smokeless tobacco: Never Used Substance and Sexual Activity ??? Alcohol use: Yes Comment: Rare ??? Drug use: No ??? Sexual activity: Yes Partners: Male control/protection: Surgical Comment: Tubal Lifestyle ??? Physical activity: Days per week: Not on file Minutes per session: Not on file ??? Stress: Not on file Relationships ??? Social connections: Talks on phone: Not on file Gets together: Not on file Attends sabianist service: Not on file Active member of club or organization: Not on file Attends meetings of clubs or organizations: Not on file Relationship status: Not on file ??? Intimate partner violence: Fear of current or ex partner: Not on file Emotionally abused: Not on file Physically abused: Not on file Forced sexual activity: Not on file Other Topics Concern ??? Parent/sibling w/ CABG, IA or angioplasty before 65F 55M? No Social History Narrative ??? Not on file FAMILY HISTORY: Family History Problem Relation Age of Onset ??? Cardiovascular Mother IA age 72 ??? Diabetes Mother Type II ??? Hypertension Mother ??? Lipids Mother ??? Arthritis Mother OA ??? Kidney Disease Mother 70 ??? Cardiovascular Father IA early 40s, subsequent bipass ??? Hypertension Father [...] Diabetes Brother ??? Kidney Disease Brother 55 EXAM:Vitals: Ht 1.575 m (5' 2) Wt 84.4 kg (186 lb) LMP 10/30/2011 BMI 34.02 kg/m?? BMI= Body mass index is 34.02 kg/m??. A1C: 6.2 (12/2018) General appearance: Patient is alert and fully cooperative with history & exam. No sign of distress is noted during the visit. Psychiatric: Affect is pleasant & appropriate. Patient appears motivated to improve health. Respiratory: Breathing is regular & unlabored while sitting. HEENT: Hearing is intact to spoken word. Speech is clear. No gross evidence of visual impairment that would impact ambulation. Dermatologic: Skin is intact to both lower extremities without significant lesions, rash or abrasion. No paronychia or evidence of soft tissue infection is noted. Vascular: DP & PT pulses are intact & regular bilaterally. No significant edema or varicosities noted. CFT and skin temperature is normal to both lower extremities. Neurologic: Lower extremity sensation is intact to light touch. No evidence of weakness or contracture in the lower extremities. No evidence of neuropathy. Musculoskeletal: Patient is ambulatory without assistive device or brace. Increased arch height. Pain on palpation of the 3rd intermetatarsal spaces bilateral and along the peroneal tendons bilateral. Radiographs: Left foot xrays - shows increase calcaneal inclination angle. Minimal degenerative changes to midfoot. No fractures noted. ASSESSMENT: Left foot pain Right foot pain Moran's neuroma of both feet Pes cavus Peroneal tendinitis of both lower legs Type 2 diabetes mellitus without complication, without long-term current use of insulin (H) PLAN: Reviewed patient's chart in [facility]. Reviewed and discussed causes of tendonitis. We discussed treatments such as immobiliation, icing, stretching, heel lifts, orthotics, physical therapy, MRI. Recommend inserts, physical therapy with iontophoresis. Blood sugar is fairly well controlled. Discussed possible spike in blood sugars with cortisone. We discussed causes and treatments of neuromas. These included shoe gear, orthotics, metatarsal pads, cortisone injections, ice, physical therapy, and possible surgical removal. Patient would like to try injection and inserts. If pain continues, may try mri of foot and ankle bilaterally. Procedure: After verbal consent, the left 3rd intermetatarsal space was marked out. The foot was prepped and draped using sterile technique. A mixture of 1cc of 2% lidocaine plain and 1 1/2 cc of kenalog -40 was injected into the left 3rd intermetatarsal nerve. Patient tolerated procedure and anesthesia well. PRocedure 2: same procedure done for right 3rd intermetatarsal nerve. Agatha Nieves DPM, Podiatry/Foot and Ankle Surgery Weight management plan: Patient was referred to their PCP to discuss a diet and exercise plan. Recommended to Megan Choi to follow up with Primary Care provider regarding elevated blood pressure. CDT documented in this encounter Plan of Treatment Scheduled Referrals Name Type Priority Associated Diagnoses Order S chedule [facility] PT, HAND, AND Referral Routine Left foot pain 1 Occurrences starting CHIROPRACTIC REFERRAL Right foot pain 01/21/2019 until Moran's neuroma of 01/22/20 20 both feet Pes cavus Peroneal tendinitis of both lower legs documented as of this encounter Procedures Procedure Name Priority Date/Time Associated Diagnosis Comme nts HC INJECTION ANES Routine 01/21/2019 11:03 AM Left foot pain AGENT AND/OR STERIOD, CDT Right foot pain OTHER PERIPH Moran's neuroma of NERVE/BRANCH both feet Pes cavus Peroneal tendinitis of both lower legs HC INJECTION ANES Routine 01/21/2019 11:03 AM Left foot pain AGENT AND/OR STERIOD, CDT Right foot pain OTHER PERIPH Moran's neuroma of NERVE/BRANCH both feet Pes cavus Peroneal tendinitis of both lower legs documented in this encounter Results XR Foot Left G/E 3 Views (01/21/2019 10:48 AM CDT) Anatomical Region Laterality Modality Foot, Ankle Left Computed Radiography Specimen (Source) Anatomical Location Collection Method / Collectio n Time Received Time / Laterality Volume Impressions 01/21/2019 11:50 AM CDT IMPRESSION: Accessory navicular ossicle which could be associated with medial pain or posterior tibial tendon p athology. The foot otherwise appears within normal limits. THOMPSON BAEZ MD Narrative 01/21/2019 11:50 AM CDT LEFT FOOT THREE OR MORE VIEWS ??01/21/2019 10:48 AM HISTORY: ??Left foot pain. Procedure Note Thompson Baez MD - 01/21/2019Formatt ing of this note might be different from the original. LEFT FOOT THREE OR MORE VIEWS 01/21/2019 10:48 AM HISTORY: Left foot pain. IMPRESSION: Accessory navicular ossicle which could be associated with medial pain or posterior tibial tendon p athology. The foot otherwise appears within normal limits. THOMPSON BAEZ MD Agatha Nieves DPM, Podiatry/Foot and Ankle Surgery IMG DIAGNOSTIC IMAGING ORDERABLES documented in this encounter Visit Diagnoses Diagnosis Left foot pain - Primary Pain in limb Right foot pain Pain in limb Moran's neuroma of both feet Pes cavus Talipes cavus Peroneal tendinitis of both lower legs Type 2 diabetes mellitus without complic ation, without long-term current use of insulin (H) Left foot pain Pain in limb documented in this encounter Additional Health Concerns Assessment Noted Time PHQ-9 Depression Total Score: 10 01/02/2019 10:18 AM C DT documented as of this encounter Care Teams Machine Staker Relationship Specialty Start Date End Date Noreen Hills APRN MUTUEL DEPARTMENT MANAGER PCP - General Nurse Practitioner 01/09/19 12/12/[address] [place] [address] [place] [id number] Noreen Hills APRN MUTUEL DEPARTMENT MANAGER Assigned PCP 06/16/18 [address] [facility] [place] [id number] documented as of this encounter
--- OUTSIDE RECORDS SUMMARY | 2022-01-17 22:09 | XMS_ITS | Encounter Summary ---
:1965 Author Organization Mark Address [address] [place] [id number] Care Team Providers Name Role Phone Noreen Hills APRN, CNP Unavailable [phone] Noreen Hills APRN, CNP Primary Care Provider [phone] Reason for Visit [facility] Physical Therapy (Routine) - Closed Specialty Diagnoses / Procedures Referred By Contact Refer red To Contact Diagnoses Acute pain of right shoulder Noreen Hills APRN VOLTAGE INSPECTOR [address] [facility] [place] [id number] Referral ID Status Reason Start Date Expiration Date Visits Requ ested Visits Authorized [id number] Closed 01/02/2019 06/10/2019 30 30 Encounter Details Date Type Department Care Team Description 01/10/2019 Therapy Visit [facility] Marcelo Trejo Chro isaac right shoulder pain (Primary Dx); Rehabilitation Services PT Acute pain of right shoulder [place] [address] [address] [address] [place] [address] (Work) [phone] Social History Tobacco Use Types Packs/Day Years [...] How often do you attend nondenominational or samaritan Patient refused 08/08/2019 services? Do you belong [...] as of this encounter Progress Notes Marcelo Trejo PT - 01/10/2019 3:50 PM CDT [facility] Initial Evaluation Subjective: The history is provided by the patient and a caregiver. No english language learner tutor was used. Megan Choi being seen for R shoulder pain. Problem began 06/11/2016. Problem occurred: Pt had surgery in May of 2016 on her foot, pt was outin the winter her dog pulled her and pulled her R shoulder and fell into a parked car landing on Jessica shoulder. Pt wasn't able to make it into the MD at that point. and reported as 5/10 on pain scale.General health as reported by patient is fair. Pertinent medical history includes: Depression, diabetes, fibromyalgia, history of fractures, menopausal, migraines/headaches, numbness/tingling, overweight and sleep disorder/apnea. Current medications: Anti-depressants, muscle relaxants and sleep medication. Primary job tasks include: Lifting/carrying and prolonged standing. Pain is described as achingand sharp and is constant. Pain is the same all the time. Since onset symptoms are unchanged. 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 Restrictions include: Working in normal job without restrictions. Barriers include: None as reported by patient. Red flags: None as reported by patient. Type of problem: Right shoulder Patient reports pain: Anterior. Associated symptoms: Tingling. Symptoms are exacerbated by lifting,carrying, using arm overhead and using arm behind back and relieved by rest. Objective: Standing Alignment: Cervical/Thoracic: Forward head Shoulder/UE: Rounded shoulders Shoulder Evaluation: ROM: AROM: Flexion: Left: Wnl Right: Wnl, erp Abduction: Right: Wnl, pdm External Rotation: Right: Wnl, erp Extension/Internal Rotation: Left: T7 Right: T10 Strength: Flexion: Left:4+/5 Pain: Right: 4/5 Pain: Extension: Left: 4/5 Pain: Right: 4/5 Pain: Internal Rotation: Left:4+/5 Pain: Right: 4/5 Pain: External Rotation: Left:4+/5 Pain: Right:4/5 Pain: General ROS Assessment/Plan: Patient is a 53 year old female with right side shoulder complaints. Patient has the following significant findings with corresponding treatment plan. Diagnosis 1: R shoulder pain Pain - hot/cold therapy, manual therapy, self management, education and home program Decreased ROM/flexibility - manual therapy and therapeutic exercise Decreased strength - therapeutic exercise and therapeutic activities Impaired muscle performance - neuro re-education Decreased function - therapeutic activities Impaired posture - neuro re-education Therapy Evaluation Codes: 1) History comprised of: Personal factors that impact the plan of care: Coping style, Gender, Profession and Time since onset of symptoms. Comorbidity factors that impact the plan of care are: Diabetes, Depression, Fibromyalgia, Menopausal, Migraines/headaches, Numbness/tingling, Overweight and Sleep disorder/apnea. Medications impacting care: Anti-depressant, Muscle relaxant and Sleep. 2) Examination of Body Systems comprised of: Body structures and functions that impact the plan of care: Shoulder. Activity limitations that impact the plan of care are: reaching, lifting. 3) Clinical presentation characteristics are: Evolving/Changing. 4) Decision-Making Low complexity using standardized patient assessment instrument and/or measureable assessment of functional outcome. Cumulative Therapy Evaluation is: Low complexity. Previous and current functional limitations: (See Goal Flow Sheet for this information) Short term and snf goals: (See Goal Flow Sheet for this [...] to resume normal activities. Rehab potential is good. Frequency: 1 X week, once daily Duration: for 6 weeks Discharge Plan: Achieve all LTG. Independent in home treatment program. Reach maximal therapeutic benefit. Please refer to the daily flowsheet for treatment today, total treatment time and time spent performing 1:1 timed codes. documented in this encounter Plan of Treatment Not on filedocumented as of this encounter Procedures Procedure Name Priority Date/Time Associated Diagnosis Comme [facility] THERAPEUTIC Routine 01/10/2019 4:26 PM Chronic right shoul donna EXERCISES CDT pain documented in this encounter Visit Diagnoses Diagnosis Chronic right shoulder pain - Primary Pain in joint, shoulder region Acute pain of right shoulder documented in this encounter Additional Health Concerns Assessment Noted Time PHQ-9 Depression Total Score: 10 01/02/2019 10:18 AM C DT documented as of this encounter Care Teams Decommissioning Well Site Manager Relationship Specialty Start Date End Date Noreen Hills APRN VOLTAGE INSPECTOR PCP - General Nurse Practitioner 01/09/19 12/12/21 [address] [facility] [place] [id number] Noreen Hills APRN VOLTAGE INSPECTOR Assigned PCP 06/16/18 [address] [facility] [place] [id number] documented as of this encounter
--- OUTSIDE RECORDS SUMMARY | 2022-01-17 22:09 | XMS_ITS | Encounter Summary ---
:1965 Author Organization [facility] Address [address] [place] [address] Care Team Providers Name Role Phone Vanda Guerrero MD Primary Care Provider [phone] Vanda Guerrero MD Unavailable Reason for Referral Care Coordination - Closed Specialty Diagnoses / Procedures Referred By Contact Refer red To Contact Diagnoses Acute bilateral low back pain without sciatica Noreen Hills APRN PROOF SORTER [address] [place] [address] [place] [id number] Referral ID Status Reason Start Date Expiration Date Visits Requ ested Visits Authorized [id number] Closed 04/09/2018 04/09/2019 1 1 Reason for Visit Reason Comments Back Pain Encounter Details Date Type Department Care Team Description 04/09/2018 Office Visit [facility] Noreen Hills Acute bila teral low back pain without sciatica (Primary Dx); Clinic Pino Haley APRN Symptomatic menopausal or fe male climacteric states; [address] [facility] Type 2 diabetes mellitus without complic ation, without long-term current use of insulin (H); [address] [facility] LDL goal <100 ; [address] [facility] Migraine without status migrainosus, not intractable, unspecified migraine type; [place] [id number] [place] [address] Anxiety; [phone] Moderate episod e of recurrent major depressive disorder (H); (Work) Fibromyalgia; [phone] Encounter for s creening for HIV; (Fax) Non morbid obes ity, unspecified obesity type; Gastroesophagea l reflux disease without esophagitis; Abnormal leg mo vement Social History Tobacco Use Types Packs/Day Years [...] 08/08/2019 relatives? How often do you attend episcopal or alevism Patient refused 08/08/2019 services? Do you belong to any clubs or organizations such as No 08/08/2019 episcopal groups, unions, fraternal or athletic groups, or [...] Sign Reading Time Taken Comments Blood Pressure 106/64 04/09/2018 9:41 AM CDT Pulse 78 04/09/2018 9:41 AM CDT Temperature 36.4 ??C (97.6 ??F) 04/09/2018 9:41 AM CDT Respiratory Rate - - Oxygen Saturation 97% 04/09/2018 9:41 AM CDT Inhaled Oxygen Concentration - - Weight 84.1 kg (185 lb 6.4 oz) 04/09/2018 9:41 AM CDT Height 157.5 cm (5' 2) 04/09/2018 9:41 AM CDT Body Mass Index 33.91 04/09/2018 9:41 AM CDT documented in this encounter Patient Instructions Patient InstructionsMolitor, Noreen Haley APRN CNP - 04/09/2018 9:40 AM CDT 1. Continue ibuprofen and muscle relaxants. Small quantity of vicodin. Call me if not improving. 2. Please go down to the lab. Please schedule follow up with Dr. An hawkins documented in this encounter Progress Notes Noreen Hills APRN CNP - 04/09/2018 9:40 AM CDT SUBJECTIVE: Megan Choi is a 53 year old female who presents to clinic today for the following health issues: Back Pain ?? Duration: 2-3 days Specific cause: none ?? Description: Location of pain: low back both Character of pain: sharp, stabbing and constant Pain radiation:radiates into the right hip New numbness or weakness in legs, not attributed to pain: no ?? Intensity: Currently 7/10, At its worst 10/10 ?? 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 Date Jun 2017 Sees a specialist for back pain: No Therapies tried without relief: muscle relaxants, cold, heat and NSAIDs, tylenol ?? Alleviating factors: Improved by: none - states she did take a vicodin so she could sleep ?? Precipitating factors: Worsened by: lifting things, twisting ?? Accompanying Signs & Symptoms: Risk of Fracture: None Risk of Cauda Equina: None Risk of Infection: None Risk of Cancer: None Risk of Ankylosing Spondylitis: Onset at age <35, male, AND morning back stiffness. no Previous history of L5/S1 rods and screws. Hasn't had pain in years. She also has cervical radiculopathy for which she gets injections, etc. States she doesn't think anything in particular aggravated this pain. States it is from her thoracicspine down to her low back. States her usual muscle relaxants aren't helping. Takes 2 TID. Not radiating down legs. States 800mg ibuprofen barely covers the pain. No fevers, muscle weakness, bowel/bladder changes, or groin numbness. ROS: const/msk/neuro otherwise negative OBJECTIVE: BP 106/64 (BP Location: Right arm, Cuff Size: Adult Large) Pulse 78 Temp 97.6 ??F (36.4 ??C) (Tympanic) Ht 5' 2 (1.575 m) Wt 185 lb 6.4 oz (84.1 kg) LMP 10/30/2011 SpO2 97% BMI 33.91 kg/m2 CONSTITUTIONAL: Alert, well-nourished, well-groomed, NAD RESP: Lungs CTA. No wheeze, rhonchi, rales. CV: HRRR S1 S2 No MRG. No peripheral edema MSK: No deformity of spine. TTP midline upper lumbar spine. No TTP paraspinal muscles. No TTP SI joint. 5/5 strength LEs. NEURO: +2 DTRs. Negative SLR. ASSESSMENT/PLAN: (M54.5) Acute bilateral low back pain without sciatica (primary encounter diagnosis) Comment: Patient with a history of L5/S1 rods and screws presents with lumbar back pain, which she hasn't had in many years. No inciting incident. No improvement with her muscle relaxants taken TID (which is her baseline-takes for neck pain) and minimal improvement with ibuprofen 800mg. She is not having any red flags or radiculopathy. DDX includes muscle spasm vs stenosis vs disc bulge. Plan: HYDROcodone-acetaminophen (NORCO) 5-325 MG per tablet -Short course of norco. Patient herself states she doesn't want to take it for more than 1-2 days. Wants to go to work as soon as possible -Continue NSAIDs and muscle relaxants. -Recommended heat/ice -Declines PT referral. She will call if not improving in a few days. (E11.9) Type 2 diabetes mellitus without complication, without long-term current use of insulin (H) Comment: Well controlled at last visit. Overdue for f/u. Plan: Hemoglobin A1c, Albumin Random Urine Quantitative with Creat Ratio, Lipid panel reflex to direct LDL Fasting, Basic metabolic panel -Labs ordered -Scheduled her with new PCP because Dr. Guerrero is hard to get into (E78.5) Hyperlipidemia LDL goal <100 Comment: Needs recheck. Plan: -lipid panel (F41.9) Anxiety Comment: Very well controlled. Sees a therapist. Currently on 30mg Celexa plus 30mg Cymbalta. She wishes to go down on her celexa. In addition, I'm concerned her Celexa may be contributing to her abnormal leg movements (see below) Plan: citalopram (CELEXA) 20 MG tablet -Reduce celexa frrom 30mg to 20mg daily -Continue thearpy (M79.7) Fibromyalgia Comment: On both Celexa and Cymbalta. Overall muscle pain is well controlled. Plan: citalopram (CELEXA) 20 MG tablet, DULoxetine (CYMBALTA) 30 MG EC capsule, topiramate (TOPAMAX) 50 MG tablet -Continue both Celexa and Cymbalta. Reduce Celexa as above. (Z11.4) Encounter for screening for HIV Plan: HIV Antigen Antibody Combo (E66.9) Non morbid obesity, unspecified obesity type Comment: States she takes this for both her migraines and for obesity. Due for a refill today but did not discuss. Plan: topiramate (TOPAMAX) 50 MG tablet -Establish care with new PCP and discuss this medication. May benefit from referral to weight centerbut finances may be an issue. (K21.9) Gastroesophageal reflux disease without esophagitis Comment: Due for refill. Did not discuss. Plan: omeprazole (PRILOSEC) 20 MG CR capsule -Discuss with new PCP (G25.9) Abnormal leg movement Comment: Patient brings a video of some abnormal arm and leg movements that occur at bedtime. Both her arms and her legs shake fairly vigorously and she has a hard time stopping them. This doesn't occur in related to taking or not taking any particular medications. It is not associated with other neurologic symptoms such as confusion or fatigue, no numbness or pain in the arms/legs. This never occursduring the daytime. This is most consistent with RLS, although it is more vigorous than I would typically expect, and is less common for it to also involve the arms. However, will start by treating it as RLS and pursue further workup if no improvement. Plan: -Ferritin to be added on to labs if possible -As serotonin specific reuptake inhibitor/SNRI can contribute to RLS will reduce celexa (she wishes to reduce celexa for other reasons as well) -Consider medication for RLS if sx not improving, may need to consider further workup as well. TONY Schneider-KARISSA. documented in this encounter Miscellaneous Notes Addendum Note - Shala De Leon RN - 04/09/2018 4:12 PM CDT Addended by: SHALA DE LEON on: 04/09/2018 04:12 PM Modules accepted: Orders documented in this encounter Plan of Treatment Not on filedocumented as of this encounter Procedures Procedure Name Priority Date/Time Associated Comments Diagnosis FERRITIN Routine 04/09/2018 11:07 Abnormal leg Results for this AM CDT movement procedure are i n the results section. ALBUMIN RANDOM URINE Routine 04/09/2018 10:10 Type 2 diabetes Results for this QUANTITATIVE AM CDT mellitus without procedure a re in complication, the results without long-term section. current use of insulin (H) HIV ANTIGEN ANTIBODY Routine 04/09/2018 10:09 Encounter for Re sults for this COMBO AM CDT screening for HIV procedure are in the results section. LIPID REFLEX TO Routine 04/09/2018 10:09 Type 2 diabetes Resul ts for this DIRECT LDL PANEL AM CDT mellitus without procedu re are in complication, the results without long-term section. current use of insulin (H) HEMOGLOBIN A1C Routine 04/09/2018 10:09 Type 2 diabetes Result s for this AM CDT mellitus without procedure a re in complication, the results without long-term section. current use of insulin (H) BASIC METABOLIC PANEL Routine 04/09/2018 10:09 Type 2 diabetes Results for this AM CDT mellitus without procedure a re in complication, the results without long-term section. current use of insulin (H) documented in this encounter Results Ferritin (04/09/2018 11:07 AM CDT) athologist Signature Ferritin 55 8 - 252 04/09/2018 [facility] ng/mL 5:17 PM CDT [facility] Specimen Anatomical Collection Method Collection Time Receive d Time (Source) Location / / Volume Laterality Blood specimen 04/09/2018 11:07 8 (specimen) AM CDT 11:12 AM CDT Noreen Hills APRN, CNP LAB - BLOOD ORDERABLES Performing Organization Address City/State/ZIP Code Phon e Number [facility] [address] [place] [address] Albumin Random Urine Quantitative with Creat Ratio (04/09/2018 10:10 AM CDT) athologist Signature Creatinine 138 mg/dL 04/09/2018 [place] Urine 5:28 PM CDT [facility] Albumin Urine 8 mg/L 04/09/2018 [place] mg/L 5:33 PM CDT [facility] Albumin Urine 5.51 0 - 25 04/09/2018 [place] mg/g Cr mg/g Cr 5:33 PM CDT [facility] Specimen Anatomical Collection Method Collection Time Receive d Time (Source) Location / / Volume Laterality Urine specimen 04/09/2018 10:10 8 (specimen) AM CDT 10:15 AM CDT Noreen Hills APRN PROOF SORTER LAB - URINE ORDERABLES Performing Organization Address City/State/ZIP Code Phon e Number [facility] [address] [place] [address] HIV Antigen Antibody Combo (04/09/2018 10:09 AM CDT) [facility] gist Method Time Signature HIV Antigen Nonreactive NR^Nonrea 04/10/2018 [facility] ctive 7:29 AM CDT [place] [facility] Comment: HIV-1 p24 Ag & HIV-1/HIV-2 Ab N ot Detected Specimen Anatomical Collection Method Collection Time Receive d Time (Source) Location / / Volume Laterality Blood specimen 04/09/2018 10:09 8 (specimen) AM CDT 10:15 AM CDT Noreen Hills APRN PROOF SORTER LAB - BLOOD ORDERABLES Performing Organization Address City/[facility]/ZIP Code Phon e Number [facility] [address] [place] [address] [place] (ABNORMAL) Basic metabolic panel (04/09/2018 10:09 AM CDT) Analysis Performed At [facility] logist Time Signature Sodium 143 133 - 144 04/09/2018 [place] mmol/L 2:28 PM CDT [facility] Potassium 4.2 3.4 - 5.3 04/09/2018 [facility] mmol/L 2:28 PM CDT [facility] Chloride 109 94 - 109 04/09/2018 [place] mmol/L 2:28 PM CDT [facility] Carbon Dioxide 27 20 - 32 04/09/2018 [facility] mmol/L 2:28 PM CDT [facility] Anion Gap 7 3 - 14 04/09/2018 [place] mmol/L 2:28 PM CDT [facility] Glucose 133 (H) 70 - 99 04/09/2018 [place] mg/dL 2:28 PM CDT [facility] Comment: Fasting specimen Urea Nitrogen 10 7 - 30 mg/dL 04/09/2018 2:28 PM CDT [facility] Creatinine 0.77 0.52 - 1.04 mg/dL 04/09/2018 2:28 PM CD T [facility] GFR Estimate 78 >60 mL/min/1.7m2 04/09/2018 2:28 PM C DT [facility] Comment: Non GFR Calc GFR Estimate If >90 >60 mL/min/1.7m2 04/09/2018 2:28 P M [facility] Black [facility] Comment: GFR Calc Calcium 9.7 8.5 - 10.1 mg/dL 04/09/2018 2:28 PM CDT [facility] Specimen Anatomical Collection Method Collection Time Receive d Time (Source) Location / / Volume Laterality Blood specimen 04/09/2018 10:09 8 (specimen) AM CDT 10:15 AM CDT Noreen Hills JEWELRY ENAMELER PROOF SORTER LAB - BLOOD ORDERABLES Performing Organization Address City/State/ZIP Code Phon e Number [facility] [address] [place] [address] (ABNORMAL) Lipid panel reflex to direct LDL Fasting (04/09/2018 10:09 AM CDT) Analysis Performed At Patho logist Time Signature Cholesterol 175 <200 mg/dL 04/09/2018 [place] 2:28 PM [facility] Triglycerides 213 (H) <150 mg/dL 04/09/2018 [place] 2:28 PM [facility] Comment: Borderline high: ??150-199 mg/dl High: ? 200-499 mg/dl Very high: ? >499 mg/dl Fasting specimen HDL Cholesterol 45 (L) >49 mg/dL 04/09/2018 2:28 PM [facility] LDL Cholesterol 87 <100 mg/dL 04/09/2018 2:28 PM [facility] Calculated [facility] Comment: Desirable: <100 mg/dl Non HDL Cholesterol 130 (H) <130 mg/dL 04/09/2018 2:28 PM [facility] Comment: Above Desirable: ??130-159 mg/dl Borderline high: ??160-189 mg/dl High: ? 190-219 mg/dl Very high: ? >219 mg/dl Specimen Anatomical Collection Method Collection Time Receive d Time (Source) Location / / Volume Laterality Blood specimen 04/09/2018 10:09 8 (specimen) AM CDT 10:15 AM CDT Noreen Hills APRN, CNP LAB - BLOOD ORDERABLES Performing Organization Address City/[facility]/ZIP Code Phon e Number [facility] [address] [place] [address] (ABNORMAL) Hemoglobin A1c (04/09/2018 10:09 AM CDT) P athologist Signature Hemoglobin A1C 6.1 (H) 0 - 5.6 % 04/09/2018 [place] 10:35 AM CDT [facility] Comment: Normal <5.7% Prediabetes 5.7-6.4% ??Diab etes 6.5% or higher - adopted from ADA consensus guidelines. Specimen Anatomical Collection Method Collection Time Receive d Time (Source) Location / / Volume Laterality Blood specimen 04/09/2018 10:09 8 (specimen) AM CDT 10:15 AM CDT Noreen Hills APRN, CNP LAB - BLOOD ORDERABLES Performing Organization Address City/[facility]/ZIP Code Phon e Number [facility] [address] [place] [address] documented in this encounter Visit Diagnoses Diagnosis Acute bilateral low back pain without sc iatica - Primary Symptomatic menopausal or female climact rosanna states Type 2 diabetes mellitus without complic ation, without long-term current use of insulin (H) Hyperlipidemia LDL goal <100 Other and unspecified hyperlipidemia Migraine without status migrainosus, not intractable, unspecified migraine type Anxiety Anxiety state, unspecified Moderate episode of recurrent major depr essive disorder (H) Fibromyalgia Mylagia and myositis, unspecified Encounter for screening for HIV Non morbid obesity, unspecified obesity type Gastroesophageal reflux disease without esophagitis Esophageal reflux Abnormal leg movement Abnormal involuntary movements documented in this encounter Additional Health Concerns Assessment Noted Time PHQ-9 Depression Total Score: 8 02/18/2018 7:04 AM CDT documented as of this encounter Care Teams Gas Maker Helper Relationship Specialty Start Date End Date Vanda Guerrero MD PCP - General Internal Medicine 04/08/15 01/08/19 [address] [facility] [place] [id number] Vanda Guerrero MD PCP - Assigned PCP 07/24/16 06/15/18 [address] [facility] [place] [id number] documented as of this encounter
--- OUTSIDE RECORDS SUMMARY | 2022-01-17 22:09 | XMS_ITS | Encounter Summary ---
:1965 Author Organization [facility] Address [address] [place] [address] Care Team Providers Name Role Phone Noreen Hills APRN, CNP Unavailable [phone] Noreen Hills APRN, CNP Primary Care Provider [phone] Encounter Details Date Type Department Care Team Description 01/21/2019 Travel Social History Tobacco Use Types Packs/Day [...] How often do you attend lutheran or mu-ism Patient refused 08/08/2019 services? Do you belong [...] documented as of this encounter Care Teams Detective Narcotics And Vice Relationship Specialty Start Date End Date Noreen Hills APRN COURIER PCP - General Nurse Practitioner 01/09/19 12/12/[address] [place] [address] [place] [id number] Noreen Hills APRN COURIER Assigned PCP 06/16/[address] [place] [address] [place] [id number] documented as of this encounter
--- OUTSIDE RECORDS SUMMARY | 2022-01-17 22:09 | XMS_ITS | Encounter Summary ---
:1965 Author Organization [facility] Address [address] [place] [address] Care Team Providers Name Role Phone Vanda Guerrero MD Primary Care Provider [phone] Noreen Hills APRN VICE PRESIDENT NETWORK Unavailable [phone] Encounter Details Date Type Department Care Team Description 09/03/2018 Travel Social History Tobacco Use Types Packs/Day [...] How often do you attend denominational or taoist Patient refused 08/08/2019 services? Do [...] Depression Total Score: 7 06/25/2018 9:49 AM CRISIS INTERVENTION SPECIALIST documented as of this encounter Care Teams Family Day Care Worker Relationship Specialty Start Date End Date Vanda Guerrero MD PCP - General Internal Medicine 04/08/15 01/08/[address] [place] [address] [place] [id number] Noreen Hills APRN VICE PRESIDENT NETWORK Assigned PCP 06/16/18 [address] [facility] [place] [id number] documented as of this encounter
--- OUTSIDE RECORDS SUMMARY | 2022-01-17 22:09 | XMS_ITS | Encounter Summary ---
:1965 Author Organization [facility] Address [facility] [place] [address] Care Team Providers Name Role Phone Vanda Guerrero MD Primary Care Provider [phone] Noreen Hills APRN SALON STYLIST Unavailable [phone] Reason for Referral Consultation (Routine) - Closed Specialty Diagnoses / Procedures Referred By Contact Refer red To Contact Diagnoses Fibromyalgia Kavin Fitzgerald ARTHRITIS & RHEUMATOLOGY [place] [address] [place], [place] [id number] [facility] [place] [address] [place] [address] [phone] Referral ID Status Reason Start Date Expiration Date Visits Requ ested Visits Authorized [id number] Closed 11/13/2018 11/13/2019 1 1 Reason for Visit Reason Comments Joint Pain Encounter Details Date Type Department Care Team Description 11/13/[address] [facility] Kavin Fitzgerald Fibr omyalgia (Primary Clinic Pino Fernandez PA-C Dx) [address] [place] [address] [place] [address] [address] [place] [address] [place] [address] Social History Tobacco Use [...] How often do you attend yazidism or baptism Patient refused 08/08/2019 services? Do [...] Sign Reading Time Taken Comments Blood Pressure 130/64 11/13/2018 3:05 PM CDT Pulse 92 11/13/2018 3:05 PM CDT Temperature 36.3 ??C (97.4 ??F) 11/13/2018 3:05 PM CDT Respiratory Rate - - Oxygen Saturation 98% 11/13/2018 3:05 PM CDT Inhaled Oxygen Concentration - - Weight 83.9 kg (185 lb) 11/13/2018 3:05 PM CDT Height 157.5 cm (5' 2) 11/13/2018 3:05 PM CDT Body Mass Index 33.84 11/13/2018 3:05 PM CDT documented in this encounter Progress Notes Kavin Fitzgerald PA-C - 11/13/2018 2:40 PM CDT Subjective Megan Choi is a 53 year old female who presents to clinic today for the following health issues: HPI Joint Pain ?? Onset: Years (has fibromyalgia) ?? Description: Location:Elbows, Knees, Shoulders Character: Sharp, Throbbing, Tender to touch ?? Intensity: 7.5/10 ?? Progression of Symptoms: worse ?? Accompanying Signs & Symptoms: Other symptoms: no swelling of joints, redness ?? History: Previous similar pain: no ?? Precipitating factors: Trauma or overuse: no ?? Alleviating factors: Improved by: nothing Therapies Tried and outcome: Heat, elevation, Cold, Ibuprofen. Nothing helps Discontinuing her SNRI. States it does not help with FM. No exercise, swimming. Patient is really upset and doesn't understand why pain meds are never offered to her. 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 Review of Systems ROS COMP: otherwise NEGATIVE Objective BP 130/64 (BP Location: Right arm, Patient Position: Chair, Cuff Size: Adult Regular) Pulse 92 Temp 97.4 ??F (36.3 ??C) (Tympanic) Ht 1.575 m (5' 2) Wt 83.9 kg (185 lb) LMP 10/30/2011 [id number]% BMI 33.84 kg/m?? Body mass index is 33.84 kg/m??. Physical Exam GENERAL: healthy, alert and no distress NECK: no adenopathy, no asymmetry RESP: lungs clear to auscultation - no rales, rhonchi or wheezes CV: regular rate and rhythm, normal S1 S2, no S3 or S4, no murmur, click or rub, no peripheral edemaand peripheral pulses strong Diagnostic Test Results: No results found for this or any previous visit (from the past 24 hour(s)). Assessment & Plan (M79.7) Fibromyalgia (primary encounter diagnosis) Comment: reviewed prior therapies. Will start muscle relaxant to ease symptoms. Discussed that pain medication is not appropriate treatment for FM. Referral to rheum for further options. Patient happy with plan. Plan: cyclobenzaprine (FLEXERIL) 10 MG tablet, RHEUMATOLOGY REFERRAL Kavin Fitzgerald PA-C [facility] documented in this encounter Plan of Treatment Scheduled Referrals Name Type Priority Associated Diagnoses Order S [facility] RHEUMATOLOGY REFERRAL Referral Routine Fibromyalgia Ordere d: 11/13/2018 documented as of this encounter Visit Diagnoses Diagnosis Fibromyalgia - Primary Mylagia and myositis, unspecified documented in this encounter Additional Health Concerns Assessment Noted Time PHQ-9 Depression Total Score: 7 06/25/2018 9:49 AM [employer]UR[employer] TECHNICAL LEAD SENIOR DEVELOPER documented as of this encounter Care Teams Softlines Supervisor Relationship Specialty Start Date End Date Vanda Guerrero MD PCP - General Internal Medicine 04/08/15 01/08/19 [address] [facility] [place] [address] Noreen Hills APRN SALON STYLIST Assigned PCP 06/16/18 [address] [facility] [place] [id number] documented as of this encounter
--- OUTSIDE RECORDS SUMMARY | 2022-01-17 22:09 | XMS_ITS | Encounter Summary ---
:1965 Author Organization [place] Address [address] [place] [address] Care Team Providers Name Role Phone Vanda Guerrero MD Primary Care Provider [phone] Noreen Hills APRN FOOD PRODUCTS SALES REPRESENTATIVE Unavailable [phone] Reason for Visit Reason Onset Date Comments Refill Request 10/20/2018 loratadine-pseudoePH EDrine ([facility] RELIEF-D) 10- 240 MG per 24 hr tablet Encounter Details Date Type Department Care Team Description 10/20/2018 Refill [facility] Vanda Guerrero R efill Request Clinic [facility] (loratadine-pseudoePHED [address] [facility] rine ([facility] [place]) 10-240 MG per [address] [place] [id number] 24 hr tablet) [place] [address] [phone] Social History Tobacco Use Types Packs/Day Years [...] How often do you attend episcopal or jew Patient refused 08/08/2019 services? Do you belong [...] this encounter Miscellaneous Notes Telephone Encounter - Emily Horn CMA - 10/22/2018 4:37 PM CDT Called patient to notify her that prescription is written. She would like it faxed to the [facility] in [employer] in [place]. Faxing now. Emily Horn CMA on 10/01/2018 at 9:32 AM Telephone Encounter - Vanda Guerrero MD - 10/22/2018 12:52 PM CDT Script printed, signed, and in station out basket or on MA/CISCO CERTIFIED NETWORK PROFESSIONAL/RN desk Vanda Guerrero MD Internal Medicine - Pediatrics Telephone Encounter - Kimberlyn Martinez RN - 10/21/2018 5:50 PM CDT Claritin D Routing refill request to provider for review/approval because: Drug not on the [facility] refill protocol Kimberlyn Martinez RN, BSN Telephone Encounter - Wilda Gupta - 10/20/2018 3:43 PM CDT Requested Prescriptions Pending Prescriptions Disp Refills ??? [facility] 10-240 MG 24 hr tablet [Pharmacy Med Name: [facility] LORAT[facility]INE-[facility] 24HR TABLET] 90tablet 1 Sig: TAKE 1 TABLET BY MOUTH DAILY. There is no refill protocol information for this order Last Written Prescription Date: 03/05/2018 Last Fill Quantity: 90 tablet, # refills: 1 Last office visit: 07/25/2018 with prescribing provider: Nroeen Hills APRN CNP Future Office Visit: Routing refill request to provider for review/approval because: Drug not on the G, P or Health refill protocol or controlled substance documented in this encounter Plan of Treatment Not on filedocumented as of this encounter Visit Diagnoses Diagnosis Chronic seasonal allergic rhinitis documented in this encounter Additional Health Concerns Assessment Noted Time PHQ-9 Depression Total Score: 7 06/25/2018 9:49 AM INFORMATION SECURITY RISK ANALYST documented as of this encounter Care Teams Rocket Scientist Relationship Specialty Start Date End Date Vanda Guerrero MD PCP - General Internal Medicine 04/08/15 01/08/[address] [place] [address] Noreen Hills, SEAN [employer] PRODUCTS SALES REPRESENTATIVE Assigned PCP 06/16/[address] [place], [place] [address] documented as of this encounter
--- OUTSIDE RECORDS SUMMARY | 2022-01-17 22:09 | XMS_ITS | Encounter Summary ---
:1965 Author Organization [place] Address [address] [place] [address] Care Team Providers Name Role Phone Vanda Guerrero MD Primary Care Provider [phone] Vanda Guerrero MD Unavailable JeanaNoreen girard QUARRY SUPERVISOR DIMENSION STONE JAVA XML DEVELOPER Unavailable [phone] JeanaNoreen girard QUARRY SUPERVISOR DIM[employer] STONE JAVA XML DEVELOPER Unavailable [phone] JeanaNoreen girard QUARRY SUPERVISOR DIMENSION STONE JAVA XML DEVELOPER Primary Care Provider Kalyan Galvan Unavailable Unavailable Lashae Trevino [facility] Unavailable [phone] Eduardo Sharma MD Unavailable Rios Monteiro MD Unavailable Marcelo Artis-C Unavailable [phone] Rodrigo Man-C Unavailable [phone] Reason for Visit Reason Comments Medication Refill zolpidem (AMBIEN) 5 MG table t Encounter Details Date Type Department Care Team Description 02/20/2018 Refill [facility] Vanda Guerrero M edication Refill Clinic [place] (zolpidem (AMBIEN) 5 MG [address] [place] [facility] table t) [facility] [place] [address] [place] [address] [place] [address] [phone] Social History Tobacco Use Types Packs/Day Years [...] How often do you attend rastafarian or mu-ism Patient refused 08/08/2019 services? Do [...] this encounter Miscellaneous Notes Telephone Encounter - Adali Pierson - 02/21/2018 4:10 PM CDT Faxed script to pharmacy on file. Thanks Chema Allan Team Coodinator Telephone Encounter - Vanda Guerrero MD - 02/21/2018 3:54 PM CDT Script printed, signed, and in station out basket or on MA/SAP BUSINESS INTELLIGENCE CONSULTANT/RN desk Telephone Encounter - Gayathri Mcallister RN - 02/21/2018 3:33 PM CDT TAILER OUT checked: patient refilled: 06/12, 07/07 and 10/04 all for #15 tablets. Has not picked up all refills, but the script . Gayathri Mcallister RN Message handled by Nurse Triage. Telephone Encounter - Marisa Matthew - 02/21/2018 8:04 AM CDT Requested Prescriptions Pending Prescriptions Disp Refills ??? zolpidem (AMBIEN) 5 MG tablet [Pharmacy Med Name: ZOLPIDEM TARTRATE 5 MG TABLET] Last Written Prescription Date: 06/12/2017 Last Fill Quantity: 30, # refills: 5 Last Office Visit: 06/12/2017 Future Office visit: Routing refill request to provider for review/approval because: Drug not on the [facility], [facility] or [facility] refill protocol or controlled substance 15 tablet Sig: TAKE 1 TABLET BY MOUTH AT NIGHT NEEDED FOR SLEEP There is no refill protocol information for [...] documented as of this encounter Care Teams Safety Coordinator Relationship Specialty Start Date End Date Vanda Guerrero, PCP - General Internal Medicine 04/08/15 01/08/[address] [place] [address] [place] [id number] Vanda Guerrero, PCP - Assigned PCP 07/24/16 [facility] [place] [address] Noreen Hills PCP - Assigned PCP 06/16/18 08/13/18 SEAN Haley JAVA XML DEVELOPER [address] [facility] [place] [address] Noreen Hills PCP - General Nurse Practitioner 01/09/19 12/12/21 SEAN Haley JAVA XML DEVELOPER [address] [facility] [place] [address] Noreen Hills Assigned PCP 06/16/18 SEAN Haley JAVA XML DEVELOPER [address] [place] [address] Kalyan Galvan Personal Advocate & 08/08/19 Liaison (PAL) Lashae Trevino Pharmacist Pharmacist 10/14/19 12/01/20 Kiran [facility] [address] [place] [id number] Eduardo Sharma MD Assigned Sleep Provider 04/02/20 05/07/21 [address] [place] [address] Rios Monteiro MD Assigned Musculoskeletal 04/02/20 08/24/20 [id number] [facility] Provider [address] [place] [address] Marcelo Artis Assigned Musculoskeletal 08/25/20 08/20/21 MIKAYLA Nuno Provider [address] [facility] [address] [place] [address] Rodrigo Man Assigned Surgical 08/25/2011/27 MIKAYLA Lacy Provider [address] [place] [address] documented as of this encounter
--- OUTSIDE RECORDS SUMMARY | 2022-01-17 22:09 | XMS_ITS | Encounter Summary ---
:1965 Author Organization [facility] Address [address] [place] [address] Care Team Providers Name Role Phone Vanda Guerrero MD Primary Care Provider [phone] Noreen Hills APRN VIDEO PRODUCER Unavailable [phone] Reason for Visit Reason Comments Headache Encounter Details Date Type Department Care Team Description 08/29/2018 - Emergency [facility] [place], Troy Migrai ne without aura 08/30/2018 [facility] Emergency MD [place] and with status Dept [facility] migrainosus, not [address] [place], [place] [address] [address] [place], [place] [id number] [phone] (Wo rk) Social History Tobacco Use Types [...] How often do you attend temple or jew Patient refused 08/08/2019 services? Do [...] Sign Reading Time Taken Comments Blood Pressure 130/72 08/30/2018 1:00 AM CDT Pulse 82 08/30/2018 1:00 AM CDT Temperature 36.7 ??C (98 ??F) 08/29/2018 11:41 PM CDT Respiratory Rate 18 08/29/2018 11:41 PM CDT Oxygen Saturation 97% 08/30/2018 1:00 AM CDT Inhaled Oxygen Concentration - - Weight 80.3 kg (177 lb) 08/29/2018 11:54 PM CDT Height 157.5 cm (5' 2) 08/29/2018 11:54 PM CDT Body Mass Index 32.37 08/29/2018 11:54 PM CDT documented in this encounter Discharge Instructions Discharge InstructionsTroy Storey MD - 08/30/2018 1:02 AM CDT Discharge Instructions Migraine You were seen today for a headache that your provider thinks is likely a migraine. At this time yourprovider does not find that your headache is a sign of anything dangerous or life-threatening. However, sometimes the signs of serious illness do not show up right away. Generally, every Emergency Department visit should have a follow-up clinic visit with either a primary or a specialty clinic/provider. Please follow-up as instructed by your emergency provider today. Return to the Emergency Department if: You get a fever of 100.4??F or higher. You get a stiff neck with your headache. You get a new headache that is different or worse than headaches you have had before. You are vomiting (throwing up) and cannot keep food or water down. You have blurry or double vision or other problems with your eyes. You have a new weakness on one side of your body. You have difficulty with balance which is new. You or your family thinks you are confused. You have a seizure. Treatment: Often, treatment for your migraine will take some time to make you headache stop. Going home to sleep can be very effective. Use your medications as directed; overuse of medications can actually cause headaches. Once your headache has gone away, avoid triggers such as certain foods, skipping meals, bright lights, changes in sleep, exercise and stress. Migraine headaches can have symptoms before the pain starts, like vision changes, funny smells/tastes, dizziness or other symptoms. Treating a headache as soon as the first symptoms come on is very important and gives the best chance of stopping the headache. If headaches are severe or frequent, you may need to start daily medication to prevent the headaches. Carbon monoxide can cause headaches, so not burning things in your home is important. Also get a carbon monoxide detector. Some medications for migraines may raise your blood pressure, so use with caution if you have high blood pressure or heart problems. If you were given a prescription for medicine here today, be sure to read all of the information (including the package insert) that comes with your prescription. This will include important information about the medicine, its side effects, and any warnings that you need to know about. The pharmacist who fills the prescription can provide more information and answer questions you may have about the medicine. If you have questions or concerns that the pharmacist cannot address, please call or return to the Emergency Department. Remember that you can always come back to the Emergency Department if you are not able to see your regular provider in the amount of time listed above, if you get any new symptoms, or if there is anything that worries you. documented in this encounter Medications at Time of [...] fever ASPIRIN PO Take 81 mg by 0 mouth daily. blood glucose (ACCU-CHEK 1 strip by In 100 strip 0 04/11/20 14 JANICE) test Vitro route 2 stripIndications: Type 2 times daily diabetes, HbA1c goal < 7% (H) IBUPROFEN PO Take 800 mg by 0 mouth daily as needed for moderate pain blood glucose monitoring Use to test blood 1 Box 11 04/1206/16/2020 (ACCU-CHEK MULTICLIX) sugar 2 times lancetsIndications: Type daily or as 2 diabetes, HbA1c goal < directed. 7% (H) blood glucose monitoring Use to test blood 1 Box 09/1006/16/2020 (ONE TOUCH DELICA) sugars 1 times lancetsIndications: Type daily or as 2 diabetes, HbA1c goal < directed. 7% (H) cholecalciferol (VITAMIN Take 1 capsule 8 capsule 0 017 01/02/2019 D3) 36338 UNITS (50,000 Units) by capsuleIndications: mouth once a week Vitamin D deficiency DULoxetine (CYMBALTA) 30 TAKE 1 CAPSULE (30 180 capsule 3 01/02/2019 MG EC capsuleIndications: MG) BY MOUTH 2 Fibromyalgia TIMES DAILY fluticasone (FLONASE) 50 [place] 1-2 sprays 3 Bottle 3 06/1208/07/2019 MCG/ACT sprayIndications: into both nostrils Dysfunction of Eustachian daily tube, bilateral loratadine-pseudoePHEDrin Take 1 tablet by 90 tablet 1 02/1010/20/2018 e ([facility]) mouth daily 10-240 MG per 24 hr tabletIndications: Chronic seasonal allergic rhinitis, unspecified trigger metFORMIN (GLUCOPHAGE) TAKE 1 TABLET (500 60 tablet 0 12/1108/07/2019 500 MG tabletIndications: MG) BY MOUTH 2 Type 2 diabetes mellitus TIMES DAILY (WITH without complication, MEALS) without long-term current use of insulin (H) methocarbamol (ROBAXIN) TAKE 1-2 TABLETS 90 tablet 3 201711/13/2018 500 MG tabletIndications: (500-1,000 MG) BY Muscle spasm MOUTH 3 TIMES DAILY NEEDED FOR MUSCLE SPASMS multivitamin, therapeutic Take 1 tablet by 0 10/14/2019 with minerals mouth daily (MULTI-VITAMIN) TABS omeprazole (PRILOSEC) 20 TAKE 2 CAPSULES 180 capsule 0 04/0911/09/2018 MG CR capsuleIndications: (40 MG) BY MOUTH Gastroesophageal reflux DAILY -DOSE disease without INCREASE esophagitis ONETOUCH ULTRA test USE TO TEST BLOOD 100 strip 0 8 08/07/2019 stripIndications: Type 2 SUGARS 1 TIMES diabetes mellitus without DAILY OR complication (H) DIRECTED. psyllium Take 1-2 capsules 180 capsule 3 06/25/20182019 (METAMUCIL/KONSYL) 0.52 g (0.52-1.04 g) by capsuleIndications: mouth daily Constipation, unspecified constipation type simvastatin (ZOCOR) 20 MG TAKE 1 TABLET (20 90 tablet 3 06/12/2019 tabletIndications: MG) BY MOUTH AT Hyperlipidemia LDL goal BEDTIME <100, Type 2 diabetes mellitus with complication, without long-term current use of insulin (H) SUMAtriptan (IMITREX) 25 TAKE 1 TO 2 18 tablet 5 06/25/2018 08/08/2019 MG tabletIndications: TABLETS BY MOUTH Migraine without status ONCE FOR MIGRAINE. migrainosus, not OK TO REPEAT X 1 intractable, unspecified AFTER 2HOURS. MAX migraine type 12TAB/DAYS INS topiramate (TOPAMAX) 50 TAKE 1 TABLET (50 180 tablet 3 06/2508/05/2019 MG tabletIndications: MG) BY MOUTH 2 Migraine without status TIMES DAILY migrainosus, not intractable, unspecified migraine type, Morbid obesity (H) zolpidem (AMBIEN) 5 MG TAKE 1 TABLET BY 30 tablet 5 019 01/07/2019 tabletIndications: MOUTH AT NIGHT Persistent insomnia NEEDED FOR SLEEP documented as of this encounter ED Notes Marj Laureano RN - 08/29/2018 11:40 PM CDT Migraine since Sunday. Hx migraines, worse tonight and now c/o nausea Troy Storey MD - 08/29/2018 11:38 PM CDT History Chief Complaint: Headache HPI Megan Choi is a 53 year old female with a history of migraine headaches who presents to the emergency department today for evaluation of a headache. The patient reports the development of a migraine similar in quality to those she has experienced historically accompanied by nausea and photophobia on 08/28, adding that this has persisted since onset. She explains that Topamax and Imitrex have assisted in managing her headaches, though she has had many breakthrough headaches unchanged with typical medications as of recent. The patient notes that her current episode is the longest she has experienced, prompting presentation. Here she denies any previous need for ER presentation due to headaches. The patient also denies any fever, cough, runny nose, emesis, numbness, tingling, or known triggers of her headaches. Allergies: Erythromycin Medications: Aspirin Cymbalta Flonase Glucophage Robaxin Prilosec Zocor Imitrex Topamax Ambien Past Medical History: Arthritis Diabetes mellitus Deep venous thrombosis Migraine headache GERD Obesity Insomnia Hyperlipidemia Allergic rhinitis Vulvar dystrophy Major depressive disorder Fibromyalgia Anxiety Heart murmur Neoplasm of skin Solar lentiginosis Past Surgical History: Spinal fusion L5, S1 Spinal fusion SI joints Spinal fusion C5-C7 section Tonsillectomy and adenoidectomy Repair tendon peritoneal Family History: Mother: myocardial infarction, type II diabetes, hypertension, lipids, osteoarthritis, kidney disease Father: myocardial infarction, hypertension, diabetes, lipids Maternal Grandmother: diabetes, hypertension, lipids Maternal Grandfather: diabetes, hypertension, lipids Paternal Grandmother: diabetes, hypertension, cardiovascular, lipids Paternal Grandfather: diabetes, hypertension, cardiovascular, lipids Sister: lipids, hypertension, diabetes Brother: lipids, diabetes, kidney disease Social History: The patient was accompanied to the ED by her . Smoking Status: Never Smoker Smokeless Tobacco: Never Used Alcohol Use: Positive Drug Use: Negative PCP: Vanda Guerrero Marital Status: Review of Systems Constitutional: Negative for fever. HENT: Negative for rhinorrhea. Eyes: Positive for photophobia. Respiratory: Negative for cough. Gastrointestinal: Positive for nausea. Negative for vomiting. Neurological: Positive for headaches. Negative for numbness. All other systems reviewed and are negative. Physical Exam Patient Vitals for the past 24 hrs: BP Temp Temp src Pulse Heart Rate Resp SpO2 Height Weight 08/30/18 0100 130/72 -- -- 82 -- -- 97 % -- -- 08/29/18 2354 -- -- -- -- -- -- -- 1.575 m (5' 2) 80.3 kg (177 lb) 08/29/18 2341 165/88 98 ??F (36.7 ??C) Temporal -- 72 18 100 % -- -- Physical Exam Nursing note and vitals reviewed. Constitutional: Cooperative. HENT: Mouth/Throat: Moist mucous membranes. Eyes: nonicteric sclera Cardiovascular: Normal rate, regular rhythm, no murmurs, rubs, or gallops Pulmonary/Chest: Effort normal and breath sounds normal. No respiratory distress. No wheezes. No rales. Abdominal: Soft. Nontender, nondistended, no guarding or rigidity. BS present. Musculoskeletal: Normal range of motion. Neurological: Alert. Moves all extremities spontaneously. CN's II-XII intact. 5/5 BUE and BLE strength. PERRL EOMI without nystagmus. Sensation intact to light touch. Negative pronator drift. Skin: Skin is warm and dry. No rash noted. Psychiatric: Normal mood and affect. Emergency Department Course Interventions: 0009 NS 1000 ml IV 0010 Zofran 4 mg Oral 0022 Reglan 10 mg IV 0025 Toradol 15 mg IV 0025 Benadryl 25 mg IV 0027 Decadron 10 mg IV Emergency Department Course: 2346 Nursing notes and vitals reviewed. 0006 I performed an exam of the patient as documented above. 0055 Patient reports improvement and is requesting discharge. 0126 I personally answered all related questions prior to discharge. Impression & Plan Medical Decision Making: Megan Choi is a 53 year old female who presented with a headache consistent with previous headaches, though longer in duration. Evaluation in the emergency department has been negative. The patient has not had any fever or neck stiffness so I doubt meningitis. The headache was gradual in onsetand like previous headaches so I doubt SAH. There is no associated numbness, paresthesia or confusion and I doubt stroke or PERCH MACHINE INSPECTOR tumor. I do not feel that advanced imaging is indicated at this time. Thepatient was treated symptomatically and pain has improved with medication interventions. The patientshould follow-up with pcp/neurology in next few days. Return if increasing pain, fever, vomiting or weakness. She is in stable condition at the time of discharge, indications for return to the ED were discussed as well as follow up. All questions were answered and she is in agreement with the plan. Diagnosis: ICD-10-CM 1. Migraine without aura and with status migrainosus, not intractable G43.001 Disposition: The patient is discharged to home. Scribe Disclosure: Sofia Steele, am serving as a scribe at 11:46 PM on 08/29/2018 to document services personally performed by Troy Storey MD based on my observations and the provider's statements to me. [facility] EMERGENCY DEPARTMENT Troy Storey MD 09/01/18 0114 documented in this encounter Plan of Treatment Not on filedocumented as of this encounter Visit Diagnoses Diagnosis Migraine without aura and with status mi grainosus, not intractable Migraine without aura, without mention o f intractable migraine with status migrainosus documented in this encounter Administered Medications Inactive Administered Medications - up to 3 most recent administrations Medication Order MAR Action Action Date Dose Rate Site 0.9% sodium chloride BOLUS New Bag 08/30/2018 12:09 AM 1,000 mLs 2000 mL/hr Intravenous, 1,000 mL, CDT ONCE, at 2,000 mL/hr, Administer over 30 Minutes, On Sun08/30/18 at 0008, For 1 dose dexamethasone PF (DECADRON) injection 10 mg Given 08/30/2018 12:27 AM CDT 10 mg 10 mg, Intravenous, ONCE, Administer over 1 Minutes, On Sun08/30/18 at 0008, For 1 dose, For IV doses 1-20 mg, give IV Push undiluted over 1 minute. diphenhydrAMINE (BENADRYL) injection 25 mg Given 08/30/2018 12:25 AM CDT 25 mg 25 mg, Intravenous, ONCE, On Sun08/30/18 at 0008, For 1 dose, For ordered IV doses 1-50 mg, give IV Push undiluted. Give each 25mg over a minimum of 1 minute. Extend in non-emergency ketorolac (TORADOL) injection 15 mg Given 08/30/2018 12:25 AM CDT 15 mg 15 mg, Intravenous, ONCE, On Sun08/30/18 at 0008, For 1 dose, Can cause pain on injection. If ordered intravenously (IV) : administer through a running maintenance fluid over 1 minute followed by a flush. If patient complains of pain on injection, may dilute 15-30 mg in 5 mL and push over 1 to 2 minutes. metoclopramide (REGLAN) injection 10 mg Given 08/30/2018 12:22 AM CDT 10 mg 10 mg, Intravenous, Administer over 2 Minutes, ONCE, On Sun08/30/18 at 0008, For 1 dose, Avoid use if patient has full bowel obstruction or perforation. Irritant. For ordered IV doses 1-10 mg, give IV Push undiluted over 2 minutes. ondansetron (ZOFRAN) injection 4 mg Given 08/30/2018 12:10 AM CDT 4 mg 4 mg, Intravenous, ONCE PRN, nausea, vomiting, Administer over 2-5 Minutes, Starting on Elda 08/29/18 at 2356, For 1 dose, Irritant. For ordered IV doses 0.1-4 mg, give IV Push undiluted over 2-5 minutes. sodium chloride 0.9% infusion at 250 mL/hr, Intravenous, CONTINUOUS, S tarting on Elda 08/29/18 at 2357, Until Sun08/30/18 at 0327 documented in this encounter Active and Recently Administered Medications Times are shown in CDT. Scheduled Medication Order 08/28/2018 08/29/2018 08/30/2018 0.9% sodium chloride BOLUS (COMPLETED) 000 (New Bag - Provider: Marcelina Henry RN)0107 (Stopped - Provider: Marcelina Henry RN) Intravenous, 1,000 mL, ONCE, at 2,000 mL /hr, Administer over 30 Minutes, On Sun08/30/18 at 0008, For 1 dose dexamethasone PF (DECADRON) injection 10 mg (COMPLETED) 0027 (Given - Provider: Marcelina Henry RN) 10 mg, Intravenous, ONCE, Administer ove r 1 Minutes, Sun08/30/18 at 0008, For 1 dose, For IV doses 1-20 mg, give IV Push undiluted over 1 minute. diphenhydrAMINE (BENADRYL) injection 25 mg (COMPLETED) 002 (Given - Provider: Marcelina Henry RN) 25 mg, Intravenous, ONCE, Sun08/30/18 at 0008, For 1 dose, For ordered IV doses 1-50 mg, give IV Push undiluted. Give each 25mg over a minimum of 1 minute. Extend in non-emergency ketorolac (TORADOL) injection 15 mg (COMPLETED) 002 (Given - Provider: Marcelina Henry RN) 15 mg, Intravenous, ONCE, Sun08/30/18 at 0008, For 1 dose, Can cause pain on injection. If ordered intravenously (IV) : administer through a running maintenance fluid over 1 minute followed by a flush. If patient complains of pain on injectio n, may dilute 15-30 mg in 5 mL and push over 1 to 2 minutes. metoclopramide (REGLAN) injection 10 mg (COMPLETED) 002 (Given - Provider: Marcelina Henry RN) 10 mg, Intravenous, Administer over 2 Mi nutes, ONCE, Sun08/30/18 at 0008, For 1 dose, Avoid use if patient has full bowel obstruction or perforation. Irritant. For ordered IV doses 1-10 mg, give IV Push undiluted over 2 minutes. Continuous Medication Order 08/28/2018 08/29/2018 08/30/2018 sodium chloride 0.9% infusion 2357 ([facility] Entry - Provider: Orders Generic Provider - Comment: Automatically canceled at discontinue of medication order) at 250 mL/hr, Intravenous, CONTINUOUS, S tarting Elda 08/29/18 at 2357, Until Sun08/30/18 at 0327 PRN Medication Order 08/28/2018 08/29/2018 08/30/2018 ondansetron (ZOFRAN) injection 4 mg (COMPLETED) 0010 (Given - Provider: Marcelina Henry, RN) 4 mg, Intravenous, ONCE PRN, nausea, vom iting, Administer over 2-5 Minutes, Starting Elda 08/29/18 at 2356, For 1 dose, Irritant. For ordered IV doses 0.1-4 mg, give IV Push undiluted over 2-5 minutes. 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
--- OUTSIDE RECORDS SUMMARY | 2022-01-17 22:09 | XMS_ITS | Encounter Summary ---
:1965 Author Organization [facility] Address [address] [place] [address] Care Team Providers Name Role Phone Vanda Guerrero MD Primary Care Provider [phone] Vanda Guerrero MD Unavailable Encounter Details Date Type Department Care Team Description 06/07/2018 Travel Social History Tobacco Use Types Packs/Day [...] 08/08/2019 relatives? How often do you attend jehovah's witness or adventist Patient refused 08/08/2019 services? Do you belong to any clubs or organizations such as No 08/08/2019 jehovah's witness groups, unions, fraternal or athletic groups, or [...] documented as of this encounter Care Teams Pharmacy Technician Inpatient Relationship Specialty Start Date End Date Vanda Guerrero MD PCP - General Internal Medicine 04/08/15 01/08/[address] [place] [address] [place] [id number] Vanda Guerrero MD PCP - Assigned PCP 07/24/16 06/15/[address] [place] [address] [place] [id number] documented as of this encounter
--- OUTSIDE RECORDS SUMMARY | 2022-01-17 22:09 | XMS_ITS | Encounter Summary ---
:1965 Author Organization [facility] Address [address] [place] [address] Care Team Providers Name Role Phone Vanda Guerrero MD Primary Care Provider [phone] Noreen Hills APRN CIRCULAR STUFFER Unavailable [phone] Noreen Hills APRN CIRCULAR STUFFER Unavailable [phone] Encounter Details Date Type Department Care Team Description 06/25/2018 Travel Social History Tobacco Use Types Packs/Day [...] 08/08/2019 relatives? How often do you attend mu-ism or pentecostalism Patient refused 08/08/2019 services? 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
--- OUTSIDE RECORDS SUMMARY | 2022-01-17 22:09 | XMS_ITS | Encounter Summary ---
:1965 Author Organization [facility] Address [address] [place] [address] Care Team Providers Name Role Phone Vanda Guerrero MD Primary Care Provider [phone] Noreen Hills APRN POWDER MONKEY Unavailable [phone] Noreen Hills APRN POWDER MONKEY Unavailable [phone] Reason for Referral Diagnostic Imaging Mammo - Closed Specialty Diagnoses / Procedures Referred By Contact Refer red To Contact Diagnoses Health care maintenance Noreen Hills, Procedures *MA Screening Digital Bilateral [place] [address] [facility] [place] [address] Referral ID Status Reason Start Date Expiration Date Visits Requ ested Visits Authorized [id number] Closed 07/25/2018 07/25/2019 1 1 PRESIDENT FOR PHILANTHROPY Reason for Visit Reason Comments Physical Encounter Details Date Type Department Care Team Description 07/25/2018 Office Visit [facility] Noreen Hills car e maintenance (Primary Dx); Clinic Pino Haley APRN Vitamin D deficiency; [address] [facility] Fibromyalgia; [address] [facility] Migraine without status migr ainosus, not intractable, unspecified migraine type; [address] [facility] Moderate episode of recurrent major depr essive disorder (H) [place] [id number] DAV[place] [id number] Social History Tobacco Use Types Packs/Day Years [...] How often do you attend congregational or religion Patient refused 08/08/2019 services? Do you belong [...] Sign Reading Time Taken Comments Blood Pressure 116/64 07/25/2018 4:30 PM VICE PRESIDENT FOR PHILANTHROPY Pulse 79 07/25/2018 4:30 PM VICE PRESIDENT FOR PHILANTHROPY Temperature 36.4 ??C (97.5 ??F) 07/25/2018 4:30 PM VICE PRESIDENT FOR PHILANTHROPY Respiratory Rate - - Oxygen Saturation 99% 07/25/2018 4:30 PM VICE PRESIDENT FOR PHILANTHROPY Inhaled Oxygen Concentration - - Weight 82.1 kg (181 lb) 07/25/2018 4:30 PM VICE PRESIDENT FOR PHILANTHROPY Height 157.5 cm (5' 2) 07/25/2018 4:30 PM VICE PRESIDENT FOR PHILANTHROPY Body Mass Index 33.11 07/25/2018 4:30 PM VICE PRESIDENT FOR PHILANTHROPY documented in this encounter Patient Instructions Patient InstructionsChristi Panda MA - 07/25/2018 4:20 PM CST Headaches: -Google rebound headaches -Consider magnesium OXALATE 500mg per day to reduce headaches -Consider B2 400mg -Aromatherapy -Guided relaxation -Stay on topiramate for now -Headache journal Fibro: Rheum nurse consultants Yoga Warm water pool-[facility] warm water pool Stop muscle relaxant cold turkey Depression: -Stop Citalopram -If you are still feeling good depression cedeno in 1 month ok to decrease Duloxetine from twice a dayto once a day. Preventive Health Recommendations Female Ages 50 - [...] eye doctor every 1 to 2 years. PRESIDENT FOR PHILANTHROPY documented in this encounter Progress Notes Noreen Hills APRN CNP - 07/25/2018 4:20 PM CST SUBJECTIVE: CC: Megan Choi is an 53 year old woman who presents for preventive health visit. Physical Annual: Getting at least 3 servings of Calcium per day: NO Bi-annual eye exam: Yes Dental care twice a year: NO Sleep apnea or symptoms of sleep apnea: Daytime drowsiness and Sleep apnea Diet: Regular (no restrictions) Frequency of exercise: None Taking medications regularly: Yes Medication side effects: Muscle aches and Other Additional concerns today: No PHQ-2 Total Score: 2 Concerns today: none Today's PHQ-2 Score: PHQ-2 (??1998 Pfizer) 07/25/2018 Q1: Little interest or pleasure in doing things 1 Q2: Feeling down, depressed or hopeless 1 PHQ-2 Score 2 Q1: Little interest or pleasure in doing things Several days Q2: Feeling down, depressed or hopeless Several days PHQ-2 Score 2 Abuse: Current or Past(Physical, Sexual or Emotional)- No Do you feel safe in your environment? Yes Social History Tobacco Use ??? Smoking status: Never Smoker ??? Smokeless tobacco: Never Used Substance Use Topics ??? Alcohol use: Yes Comment: Rare Alcohol Use 07/25/2018 If you drink alcohol do you typically have greater than 3 drinks per day OR greater than 7 drinks per week? Not Applicable No flowsheet data found. Reviewed orders with patient. Reviewed health maintenance and updated orders accordingly - Yes Labs reviewed in EPIC Mammogram Screening: Patient over age 50, mutual [...] NEG Negative Negative Test canceled - Lab weight recorder error(A) HPV 18 DNA NEG Negative Negative Test canceled - Lab weight recorder error(A) OTHER HR HPV NEG Negative Negative Test canceled - Lab weight recorder error(A) Reviewed and updated as needed this visit by clinical staff Tobacco Allergies Meds Med Hx Surg Hx Fam Hx Soc Hx Reviewed and updated as needed this visit by Provider Review of Systems Constitutional: Negative for chills and fever. HENT: Positive for congestion and hearing loss. Negative for sore throat. Eyes: Negative for pain and visual disturbance. Respiratory: Positive for cough. Negative for shortness of breath. Cardiovascular: Positive for peripheral edema. Negative for chest pain and palpitations. Gastrointestinal: Positive for heartburn. Negative for abdominal pain, constipation, diarrhea, hematochezia and nausea. Breasts: Negative for tenderness, breast mass and discharge. Genitourinary: Negative for dysuria, frequency, genital sores, hematuria, pelvic pain, urgency, vaginal bleeding and vaginal discharge. Musculoskeletal: Positive for arthralgias and myalgias. Negative for joint swelling. Skin: Negative for rash. Neurological: Positive for dizziness and headaches. Negative for weakness and paresthesias. Psychiatric/Behavioral: Positive for mood changes. OBJECTIVE: BP 116/64 (BP Location: Right arm, Cuff Size: Adult Large) Pulse 79 Temp 97.5 ??F (36.4 ??C) (Tympanic) Ht 1.575 m (5' 2) Wt 82.1 kg (181 lb) LMP 10/30/2011 SpO2 99% BMI 33.11 kg/m?? Physical Exam GENERAL: healthy, alert and no distress EYES: Eyes grossly normal to inspection, PERRL and conjunctivae and sclerae normal HENT: ear canals and TM's normal, nose and mouth without ulcers or lesions NECK: no adenopathy, no asymmetry, masses, or scars and thyroid normal to palpation RESP: lungs clear to auscultation - no rales, rhonchi or wheezes BREAST: normal without masses, tenderness or nipple discharge and no palpable axillary masses or adenopathy CV: regular rate and rhythm, normal S1 S2, no S3 or S4, no murmur, click or rub, no peripheral edemaand peripheral pulses strong ABDOMEN: soft, nontender, no hepatosplenomegaly, no masses and bowel sounds normal MS: no gross musculoskeletal defects noted, no edema SKIN: no suspicious lesions or rashes NEURO: Normal strength and tone, mentation intact and speech normal PSYCH: mentation appears normal, affect normal/bright Diagnostic Test Results: none ASSESSMENT/PLAN: 1. Health care maintenance - *MA Screening Digital Bilateral; Future - Fecal colorectal cancer screen (FIT); Future 2. Vitamin D deficiency Needs recheck 3. Fibromyalgia Previously on both an serotonin specific reuptake inhibitor and SNRI and having strange muscle movements, which has resolved since almost entirely stopping the celexa. Pt wanting to wean off both meds -Stop Celexa (already only taking 5mg) -After 1-2 months if sx of depression/fibro not worsening, ok to start taking Cymbalta daily insteadof BID then f/u 1-2 months after. -Recommended rheum nurse consultants. 4. Migraine without status migrainosus, not intractable, unspecified migraine type Poorly controlled. Taking ibuprofen daily. Taking topiramate BID -Recommended stopping all analgesics for 2 weeks due to rebound headaches -Continue topiramate -Add B2/magnesium. Discussed dosing and formulations -F/U 1-2 months. -GEORGES journal 5. Moderate episode of recurrent major depressive disorder (H) Improving. Feels much more motivated than in the past. Wants to do things the natural way. -See above for serotonin specific reuptake inhibitor/SNRI dosing. Reviewed risks of coming off -Daily exercise and better nutrition discussed. She is motivated. Recommended [place] [facility] warm water pool therapy -Start talk therapy -F/U 1-2 months. COUNSELING: Reviewed preventive health counseling, as reflected in patient instructions BP Readings from Last 1 Encounters: 07/25/18 116/64 Estimated body mass index is 33.11 kg/m?? as calculated from the following: Height as of this encounter: 1.575 m (5' 2). Weight as of this encounter: 82.1 kg (181 lb). Weight management plan: Discussed healthy diet and exercise guidelines reports that has never smoked. she has never used smokeless tobacco. Counseling Resources: ATP IV Guidelines Pooled Cohorts Equation Calculator Breast Cancer Risk Calculator FRAX Risk Assessment ICSI Preventive Guidelines Dietary Guidelines for Americans, 2009 USDA's MyPlate ASA Prophylaxis Lung CA Screening Noreen Hills APRN CNP [facility] PRESIDENT FOR PHILANTHROPY documented in this encounter Plan of Treatment Not on filedocumented as of this encounter Results Fecal colorectal cancer screen (FIT) (01/12/2020 8:00 AM CDT) Analysis Performed At Patho logist Time Signature Occult Blood Negative NEG^Negati 01/18/2020 [facility] FIT ve 4:19 PM CDT [facility] Specimen Anatomical Collection Method Collection Time Receive d Time (Source) Location / / Volume Laterality Stool specimen 01/12/2020 8:00 AM 020 1:16 (specimen) CDT PM CDT Noreen Hills APRN, CNP LAB - STOOLS ORDERABLES Performing Organization Address City/State/ZIP Code Phon e Number [facility] [address] [place], [place] [id number] [place] [address] *MA Screening Digital Bilateral (09/03/2018 10:13 AM CDT) Anatomical Region Laterality Modality Breast Bilateral Mammography Specimen (Source) Anatomical Location Collection Method / Collectio n Time Received Time / Laterality Volume Impressions 09/03/2018 10:30 AM CDT IMPRESSION: BI-RADS CATEGORY: 1 - ??Negative. RECOMMENDED FOLLOW-UP: Annual Mammograph sahil DESIR MD Narrative 09/03/2018 10:30 AM CDT SCREENING MAMMOGRAM, BILATERAL, DIGITAL w/CAD, 09/03/2018 10:29 AM BREAST DENSITY: Scattered fibroglandular densities. CLINICAL INFORMATION: Breast screening. ??[facility] care maintenance, 09/30/15, 04/16/15, 05/27/13 FINDINGS: Negative. Stable exam. Screeni ng exam in one year recommended. Procedure Note Stanislav Desir MD - 09/03/2018Formatt ing of this note might be different from the original. SCREENING MAMMOGRAM, BILATERAL, DIGITAL w/CAD, 09/03/2018 10:29 AM BREAST DENSITY: Scattered fibroglandular densities. CLINICAL INFORMATION: Breast screening. [facility], 09/30/15, 04/16/15, 05/27/13 FINDINGS: Negative. Stable exam. Screeni ng exam in one year recommended. IMPRESSION: BI-RADS CATEGORY: 1 - Negati ve. RECOMMENDED FOLLOW-UP: Annual Mammograph y. STANISLAV DESIR MD Noreen Hills APRN [facility] MAMMOGRAPHY ORDERAB LES documented in this encounter Visit Diagnoses Diagnosis Health care maintenance - Primary Unspecified general medical examination Vitamin D deficiency Unspecified vitamin D deficiency Fibromyalgia Mylagia and myositis, unspecified Migraine without status migrainosus, not intractable, unspecified migraine type Moderate episode of recurrent major depr essive disorder (H) Health care maintenance Unspecified general medical examination documented in this encounter Additional Health Concerns Assessment Noted Time PHQ-9 Depression Total Score: 7 06/25/2018 9:49 AM VICE PRESIDENT FOR PHILANTHROPY documented as of this encounter Care Teams Help Aid Relationship Specialty Start Date End Date Vanda Guerrero MD PCP - General Internal Medicine 04/08/15 01/08/[address] [place] [address] [place] [address] Noreen Hills APRN PCP - Assigned PCP 06/16/18 08/13/[address] [place] [address] Noreen Hills APRN Assigned PCP 06/16/[address] [place] [address] documented as of this encounter
--- OUTSIDE RECORDS SUMMARY | 2022-01-17 22:09 | XMS_ITS | Encounter Summary ---
:1965 Author Organization [facility] Address [address] [place] [address] Care Team Providers Name Role Phone Vanda Guerrero MD Primary Care Provider [phone] Noreen Hills APRN TRACE EVIDENCE TECHNICIAN Unavailable [phone] Noreen Hills APRN, CNP Primary Care Provider [phone] Reason for Visit Reason Comments Medication Refill Encounter Details Date Type Department Care Team Description 01/07/2019 Refill [facility] Noreen Hills, Medication Refill Pino ESTRADA TRACE EVIDENCE TECHNICIAN [address] [facility] [address] [facility] [address] [place] [address] [place] [address] [phone] Social History Tobacco Use Types Packs/Day Years [...] How often do you attend adventism or scientology Patient refused 08/08/2019 services? Do [...] Encounter - Noreen Hills APRN CNP - 01/09/2019 7:26 AM CDT E signed Telephone Encounter - Desirae West RN - 01/08/2019 1:37 PM CDT zolpidem (AMBIEN) 5 MG tablet Last Written Prescription Date: 06/25/18 Last Fill Quantity: 30, # refills: 5 Last Office Visit: 01/02/19 Future Office visit: Routing refill request to provider for review/approval because: Drug not on the [facility], UMP or Health refill protocol or controlled substance Rochelle West RN- Triage [employer] documented in this encounter Plan of Treatment Not on filedocumented as of this encounter Visit Diagnoses Diagnosis Persistent insomnia Persistent disorder of initiating or martínez ntaining sleep documented in this encounter Additional Health Concerns Assessment Noted Time PHQ-9 Depression Total Score: 10 01/02/2019 10:18 AM C DT documented as of this encounter Care Teams Weigh Tank Operator Relationship Specialty Start Date End Date Vanda Guerrero MD PCP - General Internal Medicine 04/08/15 01/08/[address] [place] [address] [place] [address] Noreen Hills APRN TRACE EVIDENCE TECHNICIAN PCP - General Nurse Practitioner 01/09/19 12/12/[address] [place] [address] [place] [address] Noreen Hills APRN TRACE EVIDENCE TECHNICIAN Assigned PCP 06/16/[address] [place] [address] [place] [id number] documented as of this encounter
--- OUTSIDE RECORDS SUMMARY | 2022-01-17 22:09 | XMS_ITS | Encounter Summary ---
:1965 Author Organization [facility] Address [address] [place] [address] Care Team Providers Name Role Phone Vanda Guerrero MD Primary Care Provider [phone] Noreen Hills APRN RV REPAIR TECHNICIAN Unavailable [phone] Noreen Hills APRN RV REPAIR TECHNICIAN Unavailable [phone] Reason for Visit Reason Comments Diabetes Encounter Details Date Type Department Care Team Description 06/25/2018 Office Visit [facility] Noreen Hills Abnormal l eg movement (Primary Dx); Clinic Pino Haley APRN Constipation, unspecified co nstipation type; [address] [place] RV REPAIR TECHNICIAN Anxiety; [address] [facility] Persistent insomnia; [address] [facility] [address] Moderate episode of recurrent major depr essive disorder (H); [place] [address] [place] [address] Fibromyalgia; [phone] Migraine withou t status migrainosus, not intractable, unspecified migraine type; (Work) Type 2 diabetes mellitus with complicati on, without long-term current use of insulin (H); [phone] Hyperlipidemia LDL goal <100; (Fax) Morbid obesity (H); Health care martínez ntenance Social History Tobacco Use Types Packs/Day Years [...] How often do you attend evangelical or baptism Patient refused 08/08/2019 services? Do you belong to any clubs or organizations such as No 08/08/2019 evangelical groups, Anest[facility] Groups, fraternal or athletic groups, or school groups? [...] Sign Reading Time Taken Comments Blood Pressure 114/58 06/25/2018 9:50 AM FIRE APPARATUS ENGINEER Pulse 72 06/25/2018 9:50 AM FIRE APPARATUS ENGINEER Temperature 36.7 ??C (98 ??F) 06/25/2018 9:50 AM FIRE APPARATUS ENGINEER Respiratory Rate - - Oxygen Saturation 99% 06/25/2018 9:50 AM FIRE APPARATUS ENGINEER Inhaled Oxygen Concentration - - Weight 82.1 kg (181 lb 1.6 oz) 06/25/2018 9:50 AM FIRE APPARATUS ENGINEER Height 157.5 cm (5' 2) 06/25/2018 9:50 AM FIRE APPARATUS ENGINEER Body Mass Index 33.12 06/25/2018 9:50 AM FIRE APPARATUS ENGINEER documented in this encounter Patient Instructions Patient InstructionsMoliNoreen stone APRN CNP - 06/25/2018 9:40 AM FIRE APPARATUS ENGINEER 1. See if covered. [facility] (Chronic Pain, Rheumatology, and Fibromayalgia) Lashawn Esquivel & Staci Arambula [phone] 2. Same dose of Cymbalta. Cut Celexa in half (just take 10mg). Hopefully this will help with the legmovements but not worsen anxiety. 3. For constipation. Start fiber capsules. Start with 1 capsule and a big glass of water in the morning. Then increase to 2 capsules with a big glass of water in the afternoon. Message me if this isn'tworking. APPARATUS ENGINEER documented in this encounter Progress Notes Noreen Hills APRN CNP - 06/25/2018 9:40 AM CST SUBJECTIVE: Megan Choi is a 53 year old female who presents to clinic today for the following health issues: Diabetes Follow-up Patient is checking blood sugars: once daily. Results are as follows: ?? suppertime - average between 112-158 ?? Diabetic concerns: None ?? Symptoms of hypoglycemia (low blood sugar): states she gets lightheaded/dizziness when lies down in bed at night ?? Paresthesias (numbness or burning in feet) or sores: Yes - tingling ?? Date of last diabetic eye exam: states just had Feb or Apr 2018 Diabetes Management Resources Hyperlipidemia Follow-Up ?? Rate your low fat/cholesterol diet?: fair ?? Taking statin? Yes, no muscle aches from statin ?? Other lipid medications/supplements?: none BP Readings from Last 2 Encounters: 04/09/18 106/64 07/10/17 118/72 Hemoglobin A1C (%) Date Value 04/09/2018 6.1 (H) 06/12/2017 6.7 (H) LDL Cholesterol Calculated (mg/dL) Date Value 04/09/2018 87 02/17/2017 111 (H) ?? Amount of exercise or physical activity: ar work only ?? Problems taking medications regularly: No ?? Medication side effects: none ?? Diet: diabetic and states she has been cutting back R shoulder: Fall 2016 dog pulled on her arm when she was holding the leash with the left hand. The right shoulder slammed into her daughter's car. ROS: const/psych/endo/msk/neuro/derm/psych otherwise negative OBJECTIVE: BP 114/58 (BP Location: Right arm, Cuff Size: Adult Regular) Pulse 72 Temp 98 ??F (36.7 ??C) (Tympanic) Ht 1.575 m (5' 2) Wt 82.1 kg (181 lb 1.6 oz) LMP 10/30/2011 SpO2 99% BMI 33.12 kg/m?? CONSTITUTIONAL: Alert, well-nourished, well-groomed, NAD RESP: Lungs CTA. No wheeze, rhonchi, rales. CV: HRRR S1 S2 No MRG. No peripheral edema PSYCH: Bright affect. Appropriate mentation and speech. DIABETIC FOOT EXAM: No skin or nail changes. Pulses +2 bilaterally and feet warm. No lesions. Sensation intact with monofilament exam. ASSESSMENT/PLAN: (G25.9) Abnormal leg movement (primary encounter diagnosis) Comment: See previous notes. Improved with decreasing Celexa. Plan: -Continue Cymbalta -Decrease Celexa further-from 20 to 10 -F/U 2 months (K59.00) Constipation, unspecified constipation type Comment: Ongoing issue. Taking stimulant laxatives and in a cycle of explosive stools and constipation. Plan: psyllium (METAMUCIL/KONSYL) 0.52 g capsule -Stop stimulants if possible -Increase fiber and water. Metamucil instructions given -F/U 2 months. (F41.9) Anxiety Comment: Ongoing, not any worse with decreasing celexa. Plan: citalopram (CELEXA) 20 MG tablet -Decrease from 20 to 10. Continue Cymbalta (the combination likely causing abnormal leg movements). (G47.00) Persistent insomnia Comment: Reviewed r/b/se. Plan: zolpidem (AMBIEN) 5 MG tablet (M79.7) Fibromyalgia Comment: Ongoing, poor control. Plan: citalopram (CELEXA) 20 MG tablet, topiramate (TOPAMAX) 50 MG tablet -Recommended rheum nurse consultants (G43.909) Migraine without status migrainosus, not intractable, unspecified migraine type Comment: Stable. Not addressed. Plan: SUMAtriptan (IMITREX) 25 MG tablet -Topiramate. -Discuss at next visit. (E11.8) Type 2 diabetes mellitus with complication, without long-term current use of insulin (H) Comment: Well controlled. Plan: FOOT EXAM F/U September (E78.5) Hyperlipidemia LDL goal <100 Comment: Fair control Plan: simvastatin (ZOCOR) 20 MG tablet (E66.01) Morbid obesity (H) Comment: Poor control despite topiramate. Plan: -Consider weight clinic at next visit. (Z00.00) Health care maintenance Plan: Fecal colorectal cancer screen (FIT), *MA Screening Digital Bilateral TONY Schneider-DNP. APPARATUS ENGINEER documented in this encounter Plan of Treatment Not on filedocumented as of this encounter Visit Diagnoses Diagnosis Abnormal leg movement - Primary Abnormal involuntary movements Constipation, unspecified constipation t ype Anxiety Anxiety state, unspecified Persistent insomnia Persistent disorder of initiating or martínez ntaining sleep Moderate episode of recurrent major depr essive disorder (H) Fibromyalgia Mylagia and myositis, unspecified Migraine without status migrainosus, not intractable, unspecified migraine type Type 2 diabetes mellitus with complicati on, without long-term current use of insulin (H) Hyperlipidemia LDL goal <100 Other and unspecified hyperlipidemia Morbid obesity (H) Morbid obesity Health care maintenance Unspecified general medical examination documented in this encounter Additional Health Concerns Assessment Noted Time PHQ-9 Depression Total Score: 7 06/25/2018 9:49 AM FIRE APPARATUS ENGINEER documented as of this encounter Care Teams Senior Director Relationship Specialty Start Date End Date Vanda Guerrero MD PCP - General Internal Medicine 04/08/15 01/08/[address] [place] [address] [place] [address] Noreen Hills APRN PCP - Assigned PCP 06/16/18 08/13/[address] [place] [address] Noreen Hills APRN Assigned PCP 06/16/[address] [place] [address] documented as of this encounter
--- OUTSIDE RECORDS SUMMARY | 2022-01-17 22:09 | XMS_ITS | Encounter Summary ---
:1965 Author Organization [facility] Address [address] [place] [address] Care Team Providers Name Role Phone Noreen Hills APRN, CNP Unavailable [phone] Noreen Hills APRN, CNP Primary Care Provider [phone] Reason for Visit Diagnostic Imaging XR (Routine) - Closed Specialty Diagnoses / Procedures Referred By Contact Refer red To Contact Diagnoses Left foot pain Agatha Null, DPM, Procedures XR Foot Left G/E 3 Views Podiatry/Foot and Ankle Surgery [address] [place] [address] Referral ID Status Reason Start Date Expiration Date Visits Requ ested Visits Authorized [id number] Closed 01/21/2019 01/21/2020 1 1 Encounter Details Date Type Department Care Team Description 01/21/2019 [facility] [place] DPM, Podiatry/Foot [address] [facility] [place] [address] [address] [address] [facility] [address] [place] [address] Social History Tobacco Use Types Packs/Day Years [...] How often do you attend confucianist or latter-day Patient refused 08/08/2019 services? Do you belong to any clubs or organizations such as No 08/08/2019 confucianist groups, CertificationPoints, fraRegenaStem or athletic groups, or school groups? How [...] Priority Date/Time Associated Diagnosis Comme nts XR FOOT LEFT G/E 3 Routine 01/21/2019 10:48 AM Left foot pain Results for this VIEWS CDT procedure are i n the results section. documented in this encounter Results XR Foot [...] within normal limits. THOMPSON BAEZ MD Agatha Null DPM, Podiatry/Foot and Ankle Surgery IMG DIAGNOSTIC IMAGING ORDERABLES documented in this encounter Visit Diagnoses Diagnosis Left foot pain Pain in limb documented in this encounter Additional Health Concerns Assessment Noted Time PHQ-9 Depression Total Score: 10 01/02/2019 10:18 AM C DT documented as of this encounter Care Teams Outer Diameter Grinder Tool Relationship Specialty Start Date End Date Noreen Hills APRN FERRY BOAT CAPTAIN PCP - General Nurse Practitioner 01/09/19 12/12/[address] [place] [address] [place] [address] Noreen Hills APRN FERRY BOAT CAPTAIN Assigned PCP 06/16/[address] [place] [address] [place] [address] documented as of this encounter
--- OUTSIDE RECORDS SUMMARY | 2022-01-17 22:09 | XMS_ITS | Encounter Summary ---
:1965 Author Organization [facility] Address [address] [place] [address] Care Team Providers Name Role Phone Vanda Guerrero MD Primary Care Provider Vanda Guerrero MD Unavailable JeanaNoreen girard SOLAR INSTALLER TECHNICIAN SERVICES TECH Unavailable [phone] JeanaNoreen girard SOLAR INSTALLER TECHNICIAN SERVICES TECH Unavailable [phone] JeanaNoreen girard SOLAR INSTALLER TECHNICIAN SERVICES TECH Primary Care Provider Kalyan Galvan Unavailable Unavailable Lashae Trevino [facility] Unavailable [phone] Eduardo Sharma MD Unavailable Rios Monteiro MD Unavailable Marcelo Artis-C Unavailable [phone] Rodrigo Man PA-C Unavailable Reason for Visit Reason Onset Date Comments Refill Request 03/04/2018 loratadine-pseudoePH EDrine ([facility] RELIEF-D) 10- 240 MG per 24 hr tablet Encounter Details Date Type Department Care Team Description 03/04/2018 Refill [facility] Vanda Guerrero R efill Request [facility] Pino SALDANA (loratadine-pseudoePHED [address] [place] [address] [facility] ([facility] RELIEF-D) 10-240 MG per [address] [place] [address] 24 hr tablet) [place] [phone] Social History Tobacco Use Types Packs/Day Years [...] How often do you attend yazidism or catholic Patient refused 08/08/2019 services? Do [...] Notes Telephone Encounter - Adali Pierson - 03/05/2018 3:06 PM CDT Faxed script to pharmacy on file. Thanks Chema Allan Team Coodinator Telephone Encounter - Vanda Guerrero MD - 03/05/2018 9:42 AM CDT Script printed, signed, and in station out basket or on MA/TEENAGE BABYSITTER/RN desk Telephone Encounter - Kartik Javier - 03/04/2018 3:10 PM CDT Requested Prescriptions Pending Prescriptions Disp Refills ??? loratadine-pseudoePHEDrine ([facility] RELIEF-D) 10-240 MG per 24 hr tablet Last Written Prescription Date: 08/06/2017 Last Fill Quantity: 90 tablet, # refills: 1 Last office visit: 06/12/2017 with prescribing provider: Vanda Guerrero MD Future Office Visit: 90 tablet 1 Sig: Take 1 tablet by mouth daily There is no refill protocol information for this order Routing refill request to provider for review/approval because: Drug not on the [facility], P or Health refill protocol or controlled substance documented in this encounter Plan of Treatment Not on filedocumented as of this encounter Visit Diagnoses Diagnosis Chronic seasonal allergic rhinitis, unsp ecified trigger documented in this encounter Additional Health Concerns Infection Onset Date Last Indicated Resolved Time Rule Out COVID-19 08/25/2020 08/25/2020 08/26/2020 3:2 3 PM CDT Assessment Noted Time PHQ-9 Depression Total Score: 8 02/18/2018 7:04 AM CDT documented as of this encounter Care Teams Senior Painter Relationship Specialty Start Date End Date Vanda Guerrero, PCP - General Internal Medicine 04/08/15 01/08/[address] [place] [address] [place] [address] Vanda uGerrero, PCP - Assigned PCP 07/24/16 06/15/[address] [place] [address] [place] [address] Noreen Hills PCP - Assigned PCP 06/16/18 08/13/18 SEAN Haley SERVICES TECH [address] [place] [address] [place] [address] Noreen Hills PCP - General Nurse Practitioner 01/09/19 12/12/21 SEAN Haley SERVICES TECH [address] [place] [address] [place] [address] Noreen Hills Assigned PCP 06/16/18 SEAN Haley SERVICES TECH [address] [place] [address] [place] [address] Kalyan Galvan Personal Advocate & 08/08/19 Liaison (PAL) Lashae Trevino Pharmacist Pharmacist 10/14/19 12/01/20 Kiran [facility] [address] [place] [id number] Eduardo Sharma MD Assigned Sleep Provider 04/02/20 05/07/21 [address] [facility] [address] [place] [id number] Rios Monteiro MD Assigned Musculoskeletal 04/02/20 08/24/20 [id number] [facility] Provider ROSHAN [address] [place] [id number] Marcelo Artis Assigned Musculoskeletal 08/25/20 08/20/21 MIKAYLA Nuno Provider [address] [facility] [address] [place] [address] Rodrigo Man Assigned Surgical 08/25/2011/27 MIKAYLA Lacy Provider [address] [facility] [address] [place], [place] 12[address] documented as of this encounter
--- OUTSIDE RECORDS SUMMARY | 2022-01-17 22:09 | XMS_ITS | Encounter Summary ---
:1965 Author Organization [facility] Address [address] [place] [address] Care Team Providers Name Role Phone Vanda Guerrero MD Primary Care Provider [phone] Noreen Hills APRN MAID CLEANING COOKING Unavailable [phone] Noreen Hills APRN MAID CLEANING COOKING Unavailable [phone] Encounter Details Date Type Department Care Team Description 07/25/2018 Travel Social History Tobacco Use Types Packs/Day [...] 08/08/2019 relatives? How often do you attend spiritism or bahai Patient refused 08/08/2019 services? Do you belong to any clubs or organizations such as No 08/08/2019 spiritism groups, unions, fraternal or athletic groups, or [...] Depression Total Score: 7 06/25/2018 9:49 AM MANAGER STAFFING documented as of this encounter Care Teams Station Cashier Relationship Specialty Start Date End Date Vanda Guerrero MD PCP - General Internal Medicine 04/08/15 01/08/[address] [place] [address] [place] [address] Noreen Hills APRN PCP - Assigned PCP 06/16/18 08/13/[address] [place] [address] Noreen Hills APRN Assigned PCP 06/16/[address] [place] [address] documented as of this encounter
--- OUTSIDE RECORDS SUMMARY | 2022-01-17 22:09 | XMS_ITS | Encounter Summary ---
:1965 Author Organization [facility] Address [address] [place] [address] Care Team Providers Name Role Phone Vanda Guerrero MD Primary Care Provider [phone] Noreen Hills APRN HOT PLATE PLYWOOD PRESS OPERATOR Unavailable [phone] Reason for Visit Reason Comments Medication Refill omeprazole (PRILOSEC) 20 MG CR capsule Encounter Details Date Type Department Care Team Description 11/09/2018 Refill [facility] Vanda Guerrero M edication Refill Clinic Pino SALDANA (omeprazole (PRILOSEC) [address] [place] [address] [facility] 20 MG CR capsule) [facility] [address] [place] [address] [place] [address] [phone] Social History Tobacco Use Types Packs/Day Years [...] How often do you attend uatsdin or sabianism Patient refused 08/08/2019 services? Do [...] this encounter Miscellaneous Notes Telephone Encounter - Shala Blackmon RN - 11/11/2018 2:05 PM CDT Prescription approved per [facility] Refill Protocol. Shala Blackmon RN Telephone Encounter - Kartik Javier - 11/09/2018 1:55 PM CDT Requested Prescriptions Pending Prescriptions Disp Refills ??? omeprazole (PRILOSEC) [address] capsule [Pharmacy Med Name: OMEPRAZOLE DR 20 MG CAPSULE] Last Written Prescription Date: 04/09/2018 Last Fill Quantity: 180 capsule, # refills: 0 Last Office Visit: 07/25/2018 Noreen Hills APRN CNP Future Office Visit: 180 capsule 0 Sig: TAKE 2 CAPSULES (40 MG) BY MOUTH DAILY -DOSE INCREASE PPI Protocol Passed - 11/09/2018 1:39 PM Passed - Not on Clopidogrel (unless Pantoprazole [...] Depression Total Score: 7 06/25/2018 9:49 AM ASSISTED LIVING DIRECTOR documented as of this encounter Care Teams Leadership Coach Relationship Specialty Start Date End Date Vanda Guerrero MD PCP - General Internal Medicine 04/08/15 01/08/[address] [place] [address] [place] [address] Noreen Hills APRN HOT PLATE PLYWOOD PRESS OPERATOR Assigned PCP 06/16/18 [address] [facility] [place] [address] documented as of this encounter
--- OUTSIDE RECORDS SUMMARY | 2022-01-17 22:09 | XMS_ITS | Encounter Summary ---
:1965 Author Organization [facility] Address [address] [place] [address] Care Team Providers Name Role Phone Vanda Guerrero MD Primary Care Provider [phone] Noreen Hills APRN DAY CARE WORKER Unavailable [phone] Encounter Details Date Type Department Care Team Description 01/02/2019 Travel Social History Tobacco Use Types Packs/Day [...] How often do you attend restoration or mandaeism Patient refused 08/08/2019 services? Do you belong [...] documented as of this encounter Care Teams Ux Engineer Relationship Specialty Start Date End Date Vanda Guerrero MD PCP - General Internal Medicine 04/08/15 01/08/[address] [place] [address] [place] [address] Noreen Hills APRN DAY CARE WORKER Assigned PCP 06/16/[address] [place] [address] [place] [address] documented as of this encounter
--- OUTSIDE RECORDS SUMMARY | 2022-01-17 22:09 | XMS_ITS | Encounter Summary ---
:1965 Author Organization [facility] Address [address] [place] [address] Care Team Providers Name Role Phone Vanda Guerrero MD Primary Care Provider [phone] Noreen Hills PRIZE JACKER CONCRETE FINISHING MACHINE OPERATOR Unavailable [phone] Reason for Visit Diagnostic Imaging Mammo - Closed Specialty Diagnoses / Procedures Referred By Contact Refer red To Contact Diagnoses Health care maintenance Noreen Hills, Procedures *MA Screening Digital Bilateral PRIZE JACKER CONCRETE FINISHING MACHINE OPERATOR [address] [facility] [place] [address] Referral ID Status Reason Start Date Expiration Date Visits Requ ested Visits Authorized [id number] Closed 07/25/2018 07/25/2019 1 1 Encounter Details Date Type Department Care Team Description 09/03/2018 Ancillary Procedure M [facility] care Clinic Pino maintenance [address] [facility] [address] [place] [phone] Social History Tobacco Use Types Packs/Day Years [...] 08/08/2019 relatives? How often do you attend orthodox or moravian Patient refused 08/08/2019 services? Do you belong to any clubs or organizations such as No 08/08/2019 orthodox groups, unions, fraternal or athletic groups, [...] Name Priority Date/Time Associated Diagnosis Comme nts MA SCREENING Routine 09/03/2018 10:13 AM Health care Results for this DIGITAL BILATERAL CDT maintenance procedure are in the results section. documented in this encounter Results *MA Screening Digital Bilateral (09/03/2018 10:13 AM CDT) Anatomical Region Laterality Modality Breast Bilateral Mammography Specimen (Source) Anatomical Location Collection Method / Collectio n Time Received Time / Laterality Volume Impressions 09/03/2018 10:30 AM CDT IMPRESSION: BI-RADS CATEGORY: 1 - ??Negative. RECOMMENDED FOLLOW-UP: Annual Mammograph y. STANISLAV DESIR MD Narrative 09/03/2018 10:30 AM CDT [...] Scattered fibroglandular densities. CLINICAL INFORMATION: Breast screening. [facility], 09/30/15, 04/16/15, 05/27/13 FINDINGS: Negative. Stable exam. Screeni ng exam in one year recommended. IMPRESSION: BI-RADS CATEGORY: 1 - Negati ve. RECOMMENDED FOLLOW-UP: Annual Mammograph y. STANISLAV DESIR MD Noreen Hills APRN CONCRETE FINISHING MACHINE OPERATOR IMG MAMMOGRAPHY ORDERAB LES documented in this encounter Visit Diagnoses Diagnosis Health care maintenance Unspecified general medical examination documented in this encounter Additional Health Concerns Assessment Noted Time PHQ-9 Depression Total Score: 7 06/25/2018 9:49 AM VICE PRESIDENT OF SALES documented as of this encounter Care Teams Bull Bucker Relationship Specialty Start Date End Date Vanda Guerrero MD PCP - General Internal Medicine 04/08/15 01/08/[address] [place] [address] [place] [address] Noreen Hills APRN CNP Assigned PCP 06/16/[address] [place] [address] [place] [address] documented as of this encounter
--- OUTSIDE RECORDS SUMMARY | 2022-01-17 22:10 | XMS_ITS | Encounter Summary ---
:1965 Author Organization [facility] Address [address] [place] [address]. [place] [address] Care Team Providers Name Role Phone Vanda Guerrero MD Primary Care Provider [phone] Vanda Guerrero MD Unavailable Reason for Visit Reason Comments Consult mole/brown spot on shoulder, it is sore, crusted and now has been sensitive. Has had for a long time, and has been changing over the last 6-8 months Encounter Details Date Type Department Care Team Description 08/21/2017 Office Visit [facility] Vanda Fuentes of uncertain behavior of skin (Primary Dx); Clinic Pino Donnelly MD Solar lentiginosis [address] [place] [address] [facility] [address] [place] [address] [place] [address] [phone] Social History Tobacco Use Types Packs/Day Years [...] documented as of this encounter Progress Notes Vanda Fuentes MD - 08/21/2017 11:45 AM CDT Images from the original note were not included. Dermatology Clinic Note Dermatology Problem List: 1. 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 Has had for a long time, and has been changing over the last 6-8 months HPI: Padmini Choi is a 52 year old female presenting for initial evaluation of changing mole seen at the request of Dr. Guerrero. The area is tender and sometimes has had overlying scaling or bleeding. No history of skin cancer or dysplastic nevus. No other concerning spots. Patient Active Problem List Diagnosis ??? Migraine headache ??? GERD (gastroesophageal reflux disease) ??? Obesity ??? Family history of IL (myocardial infarction) ??? Insomnia ??? Upper back pain ??? Type 2 diabetes mellitus without complication (H) ? ? Hyperlipidemia LDL goal <100 ??? Seasonal allergic rhinitis ??? Vulvar dystrophy ??? Low back pain ??? Major depressive disorder, recurrent (H) ??? Fibromyalgia ??? Anxiety ??? History of lumbar fusion ??? History of fusion of cervical spine ??? Heart murmur ??? Aftercare following surgery of the musculoskeletal system ??? Ankle pain, left Allergies Allergen Reactions ??? Erythromycin Rash Current Outpatient Prescriptions Medication ??? loratadine-pseudoePHEDrine ([facility] RELIEF-D) 10-240 MG per 24 hr tablet ??? SUMAtriptan (IMITREX) 25 MG tablet ??? metFORMIN (GLUCOPHAGE) 500 MG tablet ??? citalopram (CELEXA) 20 MG tablet ??? methocarbamol (ROBAXIN) 500 MG tablet ??? DULoxetine (CYMBALTA) 30 MG EC capsule ??? zolpidem (AMBIEN) 5 MG tablet ??? fluticasone (FLONASE) 50 MCG/ACT spray ??? simvastatin (ZOCOR) 20 MG tablet ??? omeprazole (PRILOSEC) 20 MG CR capsule ??? order for DME ??? topiramate (TOPAMAX) 50 MG tablet ??? loratadine (CLARITIN) 10 MG tablet ??? IBUPROFEN PO ??? Acetaminophen (TYLENOL PO) ??? blood glucose monitoring (ONE TOUCH DELICA) lancets ??? cholecalciferol (VITAMIN D3) [address]60 UNITS capsule ??? order for DME ??? order for DME ??? estradiol (ESTRACE) 0.1 MG/GM vaginal cream ??? multivitamin, therapeutic with minerals (MULTI-VITAMIN) TABS ??? blood glucose monitoring (ACCU-CHEK MULTICLIX) lancets ??? JAY/ARB NOT PRESCRIBED, INTENTIONAL, ??? blood glucose (ACCU-CHEK JANICE) test strip ??? ASPIRIN PO No current facility-administered medications for this visit. Social History Social History ??? Marital status: Spouse name: N/A ??? Number of children: N/A ??? 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 Smoking status: Never Smoker ??? Smokeless tobacco: Never Used ??? Alcohol use Yes Comment: Rare ??? Drug use: No ??? Sexual activity: Yes Partners: Male control/ protection: Surgical Comment: Tubal Other Topics Concern ??? Parent/Sibling W/ Cabg, Mi Or Angioplasty Before 65f 55m? No Social History Narrative ROS: Feeling well without other skin concerns. EXAM: LMP 10/30/2011 GEN: Alert, no distress HEENT: Conjunctiva clear. PULM: Breathing comfortably on RA CV: Extrem warm and well perfused ABD: No distension SKIN: --Exam of face and L arm: --Scattered piercing sites on the face --Scattered light brown macules on the face, superior shoulders and chest --Tattoos on the arms --L lateral superior shoulder with 4 mm smooth brown papule with globules of brown pigment centrallywithout a clear network Shave biopsy: After discussion of benefits and risks including but not limited to bleeding/bruising,pain/swelling, infection, scar, incomplete removal, nerve damage/numbness, recurrence, and non-diagnostic biopsy, written consent, verbal consent and photographs were obtained. Time-out was performed. The area was cleaned with isopropyl alcohol. 1 mL of 1% lidocaine with epinephrine was injected to obtain adequate anesthesia of the lesion on the L shoulder. A shave biopsy was performed. Hemostasis was achieved with aluminium chloride. Vaseline and a sterile dressing were applied. The patient tolerated the procedure and no complications were noted. The patient was provided with verbal and written post care instructions. Assessment and Plan: 1. Solar lentigines: Marker of past sun injury. Ongoing sun protection recommended. 2. Neoplasm of uncertain behavior: L shoulder. Symptoms of recurrent pain and crusting. Biopsy today. Differential diagnosis of irritated seborrheic keratosis vs traumatized compound nevus. RTC pending biopsy results. Thank you for involving me in this patient's care. Vanda Fuentes MD Dermatology Staff CC: No referring provider defined for this encounter. Vanda Guerrero MD documented in this encounter Plan of Treatment Not on filedocumented as of this encounter Procedures Procedure Name Priority Date/Time Associated Diagnosis Comme nts SURGICAL PATHOLOGY Routine 08/21/2017 12:00 PM Neoplasm of Re sults for this EXAM CDT uncertain behavior procedure are in of skin the results section. HC BIOPSY Routine 08/21/2017 11:54 AM Neoplasm of SKIN/SUBQ/MUC MEM, CDT uncertain behavior SINGLE LESION of skin documented in this encounter Results Surgical pathology exam (08/21/2017 12:00 PM CDT) Component Value Ref Test Analysis Performed At [facility] [employer] Range Method Time Signature Copath Report Patient Name: PADMINI CHOI MR#: [id number] Specimen #: [id number] Collected: 08/21/2017 Received: 08/22/2017 Reported: 08/24/2017 15:20 Ordering Phy(s): VANDA FUENTES For improved result formatting, select 'View Enhanced Report Format' under Linked Documents section. SPECIMEN(S): Skin, left shoulder FINAL DIAGNOSIS: Skin, left shoulder: - Predominately intradermal melanocytic nevus - (see descrip tion) I have personally reviewed all specimens and/or slides, incl uding the listed special stains, and used them with my medical judgement to determine or confirm the final diagnosis. Electronically signed out by: Larry Andrea M.D., [facility] CLINICAL HISTORY: The patient is a 52-year-old female. GROSS: The specimen is received in formalin with proper patient janet ntification, labeled L. shoulder, and consists of a 0.6 x 0.4 cm skin shave, remarkable for a 0.3 x 0.3 cm variegated mi-brown papule. ??The specimen is inked, bisected, and entirely submitted in cassette A1. (Dic tated by: Jennifer Patterson 08/22/2017 03:56 PM) MICROSCOPIC: The specimen exhibits a compound melanocytic proliferation which is predominately dermal and has a wedge-shaped low power silhouette. ??Rare junctional nests a re seen. ?? Within the dermis, nests and cords of melanocytes exhibit an epithelioid morphology superficially, with vesicular nuclei but without prominent nucleoli, and demonstrate maturation with descent, with dimi nishing size and dispersion as single cells toward the base of the lesion. ??The lesion extends to the deep mar gin. CPT Codes: A: 34813-YB2.T, 91576-NN4.P TESTING LAB LOCATION: [facility], [address] ?? [address] COLLECTION SITE: Client: [facility] Location: [facility] (R) Specimen Anatomical Collection Method Collection Time Receive d Time (Source) Location / / Volume Laterality 08/21/2017 12:00 08/22/2017 1:53 PM CDT PM CDT Vanda Fuentes MD LAB - [facility] Performing Organization Address City/State/ZIP Code Phon e Number COPATH documented in this encounter Visit Diagnoses Diagnosis Neoplasm of uncertain behavior of skin - Primary Solar lentiginosis Other dyschromia documented in this encounter Additional Health Concerns Assessment Noted Time PHQ-9 Depression Total Score: 12 06/12/2017 1:02 PM CS T documented as of this encounter Care Teams Auto Rental Supervisor Relationship Specialty Start Date End Date Vanda Guerrero MD PCP - General Internal Medicine 04/08/15 01/08/[address] [place] [address] [place] [id number] Vanda Guerrero MD PCP - Assigned PCP 07/24/16 06/15/[address] [place] [address] [place] [address] documented as of this encounter
--- OUTSIDE RECORDS SUMMARY | 2022-01-17 22:10 | XMS_ITS | Encounter Summary ---
:1965 Author Organization [place] Address [address] [place] [address] Care Team Providers Name Role Phone Vanda Guerrero MD Primary Care Provider [phone] Vanda Guerrero MD Unavailable Reason for Visit Diagnostic Imaging XR - Closed Specialty Diagnoses / Procedures Referred By Contact Refer red To Contact Diagnoses Cervicalgia [place] Main APRN Procedures XR Cervical Spine 2/3 Views [facility] [address] [place] [address] Referral ID Status Reason Start Date Expiration Date Visits Requ ested Visits Authorized [id number] Closed 06/27/2017 06/27/2018 1 1 Encounter Details Date Type Department Care Team Description 06/27/2017 Radiant Appointment [facility] Sports Rosalia Main Cervicalbola and Orthopedic Care [facility]AN [place] [facility] [address] [place] [address] [place], [place] [phone] Social History Tobacco Use Types Packs/Day Years [...] 08/08/2019 relatives? How often do you attend taoist or restoration Patient refused 08/08/2019 services? Do you belong to any clubs or organizations such as No 08/08/2019 taoist groups, [employer] (now [employer])s, fraternal or athletic groups, or school groups? [...] Priority Date/Time Associated Diagnosis Comme nts XR CERVICAL SPINE Routine 06/27/2017 10:30 AM Cervicalgia Res ults for this 2/3 VIEWS HIGH SCHOOL TUTOR procedure are i n the results section. documented in this encounter Results XR Cervical Spine 2/3 Views (06/27/2017 10:30 AM HIGH SCHOOL TUTOR) Anatomical Region Laterality Modality Spine Computed Radiography Specimen (Source) Anatomical Location Collection Method / Collectio n Time Received Time / Laterality Volume Impressions 06/27/2017 4:33 PM HIGH SCHOOL TUTOR IMPRESSION: Flexion and extension lateral views only. 1 mm anterolisthesis C2 on C3 and C4 on C5. T hese levels reduce with extension. Anterior interbody fusion C5- C7 appears solid with normal alignment. Degenerative disc space narro wing C3-4. No acute bony or soft tissue abnormality in the lateral v iew. ROHAN PINK MD Narrative 06/27/2017 4:33 PM HIGH SCHOOL TUTOR CERVICAL SPINE TWO - THREE VIEWS 06/27/2017 10:30 AM HISTORY: Cervicalgia. COMPARISON: None. Procedure Note Rohan Pink MD - 06/27/2017Fo rmatting of this note might be different from the original. CERVICAL SPINE TWO - THREE VIEWS 06/27/19 10:30 AM HISTORY: Cervicalgia. COMPARISON: None. IMPRESSION: Flexion and extension latera l views only. 1 mm anterolisthesis C2 on C3 and C4 on C5. T hese levels reduce with extension. Anterior interbody fusion C5- C7 appears solid with normal alignment. Degenerative disc space narro wing C3-4. No acute bony or soft tissue abnormality in the lateral v iew. ROHAN PINK MD Rosalia Main APRN RIP/MOULD OPERATOR IMG DIAGNOSTIC IMAGING DAMASO MIRAMONTES documented in this encounter Visit Diagnoses Diagnosis Cervicalgia documented in this encounter Additional Health Concerns Assessment Noted Time PHQ-9 Depression Total Score: 12 06/12/2017 1:02 PM CS T documented as of this encounter Care Teams Flooring Helper Relationship Specialty Start Date End Date Vanda Guerrero MD PCP - General Internal Medicine 04/08/15 01/08/19 [address] [facility] [place] [id number] Vanda Guerrero MD PCP - Assigned PCP 07/24/16 06/15/18 [address] [facility] [place] [id number] documented as of this encounter
--- OUTSIDE RECORDS SUMMARY | 2022-01-17 22:10 | XMS_ITS | Encounter Summary ---
:1965 Author Organization [place] Address [address] [place] [address] Care Team Providers Name Role Phone Vanda Guerrero MD Primary Care Provider [phone] Vanda Guerrero MD Unavailable Reason for Visit Reason Comments Medication Refill DULoxetine (CYMBALTA) 30 MG EC capsule Encounter Details Date Type Department Care Team Description 05/14/[address] [facility] Vanda Guerrero M edication Refill Clinic [place] SALDANA (DULoxetine (CYMBALTA) [address] [facility] [address] [facility] 30 MG EC capsule) [facility] [place] [place] [address] [place] [address] [place] [address] [phone] Social History Tobacco Use Types Packs/Day Years [...] How often do you attend advent or baptist Patient refused 08/08/2019 services? Do [...] this encounter Miscellaneous Notes Telephone Encounter - Kirsten Casillas RN - 05/16/2017 4:31 PM CST Requested Prescriptions Pending Prescriptions Disp Refills ??? DULoxetine (CYMBALTA) 30 MG EC capsule [Pharmacy Med Name: DULOXETINE HCL DR 30 MG CAP] 180 capsule 2 Sig: TAKE 1 CAPSULE (30 MG) BY MOUTH 2 TIMES DAILY Serotonin-Norepinephrine Reuptake Inhibitors Failed 05/14/2017 7:32 AM Failed - PHQ-9 score of less than 5 in past 6 months Please review PHQ-9 score. Failed - Recent (6 mo) or future visit with authorizing provider's specialty Patient had office visit in the last 6 months or has a visit in the next 30 days with authorizing provider. See chart review. Passed - Blood pressure under 140/90 BP Readings from Last 3 Encounters: 12/19/16 118/76 10/11/16 116/85 09/25/16 110/62 Passed - Recent or future visit with authorizing provider's specialty Patient had office visit in the last year or has a visit in the next 30 days with authorizing provider. See chart review. Passed - Patient is age 18 or older Passed - No active on record Passed - No positive test in past 12 months Prescription [place] [facility] [place] Protocol. Kirsten Casillas, vice president compliance Nurse ER HAND Telephone Encounter - Marisa Matthew - 05/14/2017 7:32 AM CST YOSELIN 09/25/2016 ER HAND documented in this encounter Plan of Treatment Not on filedocumented as of this encounter Visit Diagnoses Diagnosis Fibromyalgia Mylagia and myositis, unspecified documented in this encounter Additional Health Concerns Assessment Noted Time PHQ-9 Depression Total Score: 9 10/12/2016 7:16 AM CDT documented as of this encounter Care Teams Pet Store Merchandiser Relationship Specialty Start Date End Date Vanda Guerrero MD PCP - General Internal Medicine 04/08/15 01/08/[address] [place] [address] [place] [address] Vanda Guerrero MD PCP - Assigned PCP 07/24/16 06/15/[address] [place] [address] [place] [id number] documented as of this encounter
--- OUTSIDE RECORDS SUMMARY | 2022-01-17 22:10 | XMS_ITS | Encounter Summary ---
:1965 Author Organization [place] Address [address] [place] [address] Care Team Providers Name Role Phone Vanda Guerrero MD Primary Care Provider [phone] Vanda Guerrero MD Unavailable Encounter Details Date Type Department Care Team Description 07/18/2017 Therapy Visit [facility] Serena Blount (Primary Dx); CHIRO J, [place] Thoracic spine pain; [address] [facility] Cervical segment dysfunction [address] [facility] 300 [address] [place] [id number] Social History Tobacco Use Types Packs/Day Years [...] How often do you attend restorationist or gnosticism Patient refused 08/08/2019 services? Do [...] documented as of this encounter Progress Notes Serena Blount DC - 07/18/2017 12:30 PM CST Visit #: 2 of 6 based on treatment plan 6 Subjective: Megan Choi is a 52 year old female who is seen in f/u up for: presenting with chronic neck valdo . Patient reports that the onset was man years ago for unknown reasons. States she hada spinal fusion C5-C7 in 2000. Patient reports a recent MRI shows significant arthritis in her neck Data Unavailable. Since last visit on 07/09/2017, Megan Choi reports the following changes: Pain immediately after last treatment: 12/18 and their pain level today 7/10. Sitting rated at a 7/10 painful, difficult and prior to initial visit 8/10 and prior to this incident it was 2/10. Overall slight improvement for 1-2 days. States she also recently had an injection to the upper back region. States she hasn't seen much change with the injection. Area of chief complaint: Cervical and Thoracic : Symptoms are graded at 7/10. The quality is described as stiff, achey, dull.Motion has increased, but is still not normal, T3, C3. Patient feels that they have not improved andfeel the same. Since last visit the patient feels that they are 10 percent improved from last visit. Objective: The following was observed: P: pain elicited on palpation, C4-C7 A: static palpation demonstrates intersegmental asymmetry -C3. T3 R: motion palpation notes restricted motion T: muscle spasm at level(s): Sub-occipital, T-spine paraspinal and Traps Bilaterally Assessment: Segmental spinal dysfunction/restrictions found at: Occiput C3 T3 Diagnoses: No diagnosis found. Patient's condition: Patient had restrictions pre-manipulation Treatment effectiveness: Post manipulation there is better intersegmental movement and Patient claims to feel looser post manipulation Procedures: CMT: 18324 Chiropractic manipulative treatment 1-2 regions performed Occiput: Gentle distraction-x10, C0, Supine Cervical: Gentle PtoA mob'sC4, T2, Supine NO rotary manipulation due to fusion C5-C7 Activator to right first rib Modalities: 37754: Acupuncture, for 15 minutes: Points: For neck and upper back pain-patient seated 15min Therapeutic procedures: None Prognosis: Guarded Progress towards Goals: Patient has not made progress towards goal of SLEEPING: the patient specificgoal is to attain his pre-injury status of 6 hours comfortably PAIN: the patient specific goal of thier symptoms is to attain the pre-inury state of 2/10 on the VAS. Response to Treatment: Patient tolerated the treatment well today Recommendations: Instructions:ice 20 minutes every other hour as needed and heat 15 minutes every other hour as needed Follow-up: Return to care in one week. SPLANT SURGEON documented in this encounter Plan of Treatment Not on filedocumented as of this encounter Procedures Procedure Name Priority Date/Time Associated Diagnosis Comme nts ACUPUNCTURE, 1+ Routine 07/18/2017 1:03 PM Cervicalgi a NEEDLES, W/O ELECTRICAL TRANSPLANT SURGEON Thoracic spine pain STIM; INIT 15 MIN Cervical segment PERSONAL CONTACT dysfunction ZC CHIROPRAC Routine 07/18/2017 1:03 PM Cervicalgia MANIP,SPINAL,1-2 TRANSPLANT SURGEON Thoracic spine pain REGIONS Cervical segment dysfunction documented in this encounter Visit Diagnoses Diagnosis Cervicalgia - Primary Thoracic spine pain Pain in thoracic spine Cervical segment dysfunction Nonallopathic lesion of cervical region, not elsewhere classified documented in this encounter Additional Health Concerns Assessment Noted Time PHQ-9 Depression Total Score: 12 06/12/2017 1:02 PM CS T documented as of this encounter Care Teams Cleaning Attendant Relationship Specialty Start Date End Date Vanda Guerrero MD PCP - General Internal Medicine 04/08/15 01/08/19 [address] [facility] [place] [address] Vanda Guerrero MD PCP - Assigned PCP 07/24/16 06/15/[address] [place] [address] [place] [address] documented as of this encounter
--- OUTSIDE RECORDS SUMMARY | 2022-01-17 22:10 | XMS_ITS | Encounter Summary ---
:1965 Author Organization [place] Address [address] [place] [address] Care Team Providers Name Role Phone Vanda Guerrero MD Primary Care Provider [phone] Vanda Guerrero MD Unavailable Reason for Visit Reason Onset Date Comments Outreach 04/26/2017 Encounter Details Date Type Department Care Team Description 04/26/2017 Telephone [facility] Sandy Joe, Outreach [facility] [address] [place] [address] [address] [place] [address] Social History [...] How often do you attend judaism or uatsdin Patient refused 08/08/2019 services? Do [...] this encounter Miscellaneous Notes Telephone Encounter - Sandy Joe RPH - 04/26/2017 12:19 PM MEDIA ANALYST We have attempted to contact this patient two times to set up a MTM follow up appointment and were unsuccessful. Contact attempts were made via Cellu[employer]. We will no longer continue to contact this patient to schedule a visit at this time. Please refer back to MTM if you believe this patient would continue to benefit from our services. Thank you! Sandy Joe PharmD BCPS Medication Therapy Management Practitioner #[phone] A ANALYST documented in this encounter Plan of Treatment Not on filedocumented as of this encounter Visit Diagnoses Not on filedocumented in this encounter Additional Health Concerns Assessment Noted Time PHQ-9 Depression Total Score: 9 10/12/2016 7:16 AM CDT documented as of this encounter Care Teams Kier Boiler Relationship Specialty Start Date End Date Vanda Guerrero MD PCP - General Internal Medicine 04/08/15 01/08/19 [address] [facility] [place] [address] Vanda Guerrero MD PCP - Assigned PCP 07/24/16 06/15/18 [address] [facility] [place] [address] documented as of this encounter
--- OUTSIDE RECORDS SUMMARY | 2022-01-17 22:10 | XMS_ITS | Encounter Summary ---
:1965 Author Organization [place] Address [address] [place] [address] Care Team Providers Name Role Phone Vanda Guerrero MD Primary Care Provider [phone] Vanda Guerrero MD Unavailable Reason for Visit Reason Comments Medication Refill SUMAtriptan (IMITREX) 25 MG tablet Encounter Details Date Type Department Care Team Description 07/13/[address] [facility] Vanda Guerrero M edication Refill Clinic [place] SAL[place] (SUMAtriptan (IMITREX) [address] [facility] 25 MG tablet) [facility] [address] [place] [address] [place] [address] [phone] Social History Tobacco Use Types Packs/Day Years [...] How often do you attend zoroastrian or sikh Patient refused 08/08/2019 services? Do [...] this encounter Miscellaneous Notes Telephone Encounter - Mimi Roberts RN - 07/13/2017 12:25 PM SOLAR MANUFACTURER'S REPRESENTATIVE BP Readings from Last 3 Encounters: 07/10/17 118/72 06/27/17 124/77 06/12/17 116/72 [place] [facility] [place] Protocol. Kassie Roberts RN R MANUFACTURER'S REPRESENTATIVE Telephone Encounter - Kartik Javier - 07/13/2017 10:44 AM CST Requested Prescriptions Pending Prescriptions Disp Refills ??? SUMAtriptan (IMITREX) 25 MG tablet [Pharmacy Med Name: SUMATRIPTAN SUCC 25 MG TABLET] Last Written Prescription Date: 03/26/2016 Last Fill Quantity: 18 tablet, # refills: 3 Last Office Visit with [facility] provider: 06/12/2017 Future Office Visit: 18 tablet 2 Sig: TAKE 1 TO 2 TABLETS BY MOUTH ONCE FOR MIGRAINE. OK TO REPEAT X 1 AFTER 2HOURS. MAX 12TAB/25DAYS INS There is no refill protocol information for this order R MANUFACTURER'S REPRESENTATIVE documented in this encounter Plan of Treatment Not on filedocumented as of this encounter Visit Diagnoses Diagnosis Migraine without status migrainosus, not intractable, unspecified migraine type documented in this encounter Additional Health Concerns Assessment Noted Time PHQ-9 Depression Total Score: 12 06/12/2017 1:02 PM CS T documented as of this encounter Care Teams Histotechnician Relationship Specialty Start Date End Date Vanda Guerrero MD PCP - General Internal Medicine 04/08/15 01/08/19 [address] [facility] [place] [address] Vanda Guerrero MD PCP - Assigned PCP 07/24/16 06/15/18 [address] [facility] [place] [address] documented as of this encounter
--- OUTSIDE RECORDS SUMMARY | 2022-01-17 22:10 | XMS_ITS | Encounter Summary ---
:1965 Author Organization [place] Address [address] [place] [address] Care Team Providers Name Role Phone Vanda Guerrero MD Primary Care Provider [phone] Vanda Guerrero MD Unavailable Reason for Visit Reason Comments Medication Refill tiZANidine (ZANAFLEX) 4 MG t ablet Encounter Details Date Type Department Care Team Description 05/05/2017 Refill [facility] Vanda Guerrero M edication Refill Clinic [place]NA (tiZANidine (ZANAFLEX) [address] [place] [address]305 [facility] 4 MG tablet) [facility] [address] [place] [address] [place] [address] [phone] Social History Tobacco Use Types Packs/Day Years [...] How often do you attend restorationist or yazdanism Patient refused 08/08/2019 services? Do [...] Telephone Encounter - Kirsten Casillas RN - 05/08/2017 10:04 AM CST Routing refill request to provider for review/approval because: Drug not on the [facility] refill protocol Kirsten Casillas, pencil sorter Nurse D PROFESSIONAL Telephone Encounter - Efren Pryor - 05/06/2017 7:37 PM CST YOSELIN: 12/25/2016 D PROFESSIONAL documented in this encounter Plan of Treatment Not on filedocumented as of this encounter Visit Diagnoses Diagnosis Cervicalgia History of fusion of cervical spine Arthrodesis status History of lumbar fusion documented in this encounter Additional Health Concerns Assessment Noted Time PHQ-9 Depression Total Score: 9 10/12/2016 7:16 AM CDT documented as of this encounter Care Teams Sleeve Bottom Feller Relationship Specialty Start Date End Date Vanda Guerrero MD PCP - General Internal Medicine 04/08/15 01/08/19 [address] [facility] [address] [place], [place] [phone] Vanda Guerrero MD PCP - Assigned PCP 07/24/16 06/15/18 [address] [facility] [place] [address] documented as of this encounter
--- OUTSIDE RECORDS SUMMARY | 2022-01-17 22:10 | XMS_ITS | Encounter Summary ---
:1965 Author Organization [place] Address [address] [place] [address] Care Team Providers Name Role Phone Vanda Guerrero MD Primary Care Provider [phone] Vanda Guerrero MD Unavailable Encounter Details Date Type Department Care Team Description 07/27/2017 Therapy Visit [place] [facility] Serena Blount rvicalgia (Primary Dx); Medicine [place] Cervical segment dysfunction 3305 [facility] [address] [place] [address] [place] [id number] Social History Tobacco Use Types Packs/Day Years [...] How often do you attend scientology or protestant Patient refused 08/08/2019 services? Do [...] encounter Progress Notes Serena Blount DC - 07/27/2017 10:00 AM CST Visit #: 2 of 6 based on treatment plan 6 Subjective: Megan Choi is a 52 year old female who is seen in f/u up for: presenting with chronic neck pain. Patient reports that the onset was man years ago for unknown reasons. States she hada spinal fusion C5-C7 in 2000. Patient reports a recent MRI shows significant arthritis in her neck Data Unavailable. Since last visit on 07/18/2017, Megan Choi reports the following changes: Pain immediately after last treatment: 12/18 and their pain level today 7/10. Sitting rated at a 7/10 painful, difficult and prior to initial visit 8/10 and prior to this incident it was 2/10. Overall slight improvement for1-2 days. States she also recently had an injection to the upper back region. States she hasn't seenmuch change with the injection. Area of chief [...] to feel looser post manipulation Procedures: CMT: 76843 Chiropractic manipulative treatment 1-2 regions performed Occiput: Gentle distraction-x10, C0, Supine Cervical: Gentle PtoA mob'sC4, T2, Supine NO rotary manipulation due to fusion C5-C7 Activator to right first rib Modalities: 04344: Acupuncture, for 15 minutes: Points: For neck [...] Follow-up: Return to care in one week. E TABLE OPERATOR HELPER documented in this encounter Plan of Treatment Not on filedocumented as of this encounter Procedures Procedure Name Priority Date/Time Associated Diagnosis Comme nts HC ACUPUNCTURE, 1+ Routine 07/27/2017 10:08 AM Cervicalg ia NEEDLES, W/O ELECTRICAL FRAME TABLE OPERATOR HELPER Cervical segment STIM; INIT 15 MIN dysfunction PERSONAL CONTACT [facility] CHIROPRAC Routine 07/27/2017 10:08 AM Cervicalgia MANIP,SPINAL,1-2 FRAME TABLE OPERATOR HELPER Cervical segment REGIONS dysfunction documented in this encounter Visit Diagnoses Diagnosis Cervicalgia - Primary Cervical segment dysfunction Nonallopathic lesion of cervical region, not elsewhere classified documented in this encounter Additional Health Concerns Assessment Noted Time PHQ-9 Depression Total Score: 12 06/12/2017 1:02 PM CS T documented as of this encounter Care Teams Strategy Lead Relationship Specialty Start Date End Date Vanda Guerrero MD PCP - General Internal Medicine 04/08/15 01/08/19 [address] [facility] [place] [address] Vanda Guerrero MD PCP - Assigned PCP 07/24/16 06/15/18 [address] [facility] [place] [address] documented as of this encounter
--- OUTSIDE RECORDS SUMMARY | 2022-01-17 22:10 | XMS_ITS | Encounter Summary ---
:1965 Author Organization [place] Address [address] [place] [address] Care Team Providers Name Role Phone Vanda Guerrero MD Primary Care Provider [phone] Vanda Guerrero MD Unavailable Reason for Visit Reason Comments Medication Refill blood glucose monitoring (ON E TOUCH ULTRA) test strip (Discontinued) Encounter Details Date Type Department Care Team Description 09/22/2017 Refill [facility] Vanda Guerrero M edication Refill Clinic [place] SALDANA (blood glucose [address] [place] [address] [facility] monit oring (ONE TOUCH [facility] [address] [facility] [address] ULTRA) test strip [address] [place] [address] (Discontinued)) [place] [phone] Social History Tobacco Use Types Packs/Day Years [...] How often do you attend faith or church Patient refused 08/08/2019 services? Do [...] Telephone Encounter - Christi Roldan RN - 09/25/2017 9:58 AM CDT Prescription approved [place] [facility] Refill Protocol. Telephone Encounter - Efren Roldan - 09/22/2017 4:12 PM CDT Requested Prescriptions Pending Prescriptions Disp Refills ??? ONETOUCH ULTRA test strip [Pharmacy Med Name: ONE TOUCH ULTRA TEST STRIPS] DISCONTINUED 10/11/16. Last Written Prescription Date: 09/20/16 Last Fill Quantity: 100 STRIP, # refills: 0 Last office visit: 06/12/2017 with prescribing provider: JONH Future Office Visit: 100 strip 0 Sig: USE TO TEST BLOOD SUGARS 1 TIMES DAILY OR DIRECTED. Diabetic Supplies Protocol Passed 09/22/2017 3:25 PM Passed - Patient is 18 years of age or older Passed - Recent (6 mo) or future (30 days) visit within the authorizing provider's specialty Patient had office visit in the last 6 months or has a visit in the next 30 days with authorizing provider. See Patient Info tab in inbasket, or Choose Columns in Meds & Orders section of the refill encounter. documented in this encounter Plan of Treatment Not on filedocumented as of this encounter Visit Diagnoses Diagnosis Type 2 diabetes mellitus without complic ation (H) documented in this encounter Additional Health Concerns Assessment Noted Time PHQ-9 Depression Total Score: 12 06/12/2017 1:02 PM CS T documented as of this encounter Care Teams Gas Plumber Relationship Specialty Start Date End Date Vanda Guerrero MD PCP - General Internal Medicine 04/08/15 01/08/[address] [place] [address] [place] [address] Vanda Guerrero MD PCP - Assigned PCP 07/24/16 06/15/[address] [place] [address] [place] [id number] documented as of this encounter
--- OUTSIDE RECORDS SUMMARY | 2022-01-17 22:10 | XMS_ITS | Encounter Summary ---
:1965 Author Organization [place] Address [address] [place] [address] Care Team Providers Name Role Phone Vanda Guerrero MD Primary Care Provider [phone] Vanda Guerrero MD Unavailable Encounter Details Date Type Department Care Team Description 07/09/2017 Therapy [facility] Serena Blount (Primary Dx); CHIRO J, [place] Cervical segment dysfunction; [address] [facility] Thoracic segment dysfunction [address] [facility] [phone] [place] [id number] Social History Tobacco Use Types Packs/Day Years [...] How often do you attend zoroastrian or rastafarian Patient refused 08/08/2019 services? Do you belong [...] encounter Progress Notes Serena Blount DC - 07/09/2017 11:15 AM CST Chiropractic Clinic Visit PCP: Vanda Guerrero Steph is a 52 year old female who is seen in consultation at the request of Rosalia Main N.P. presenting with chronic neck valdo . Patient reports that the onset was man years ago for unknown reasons. States she had a spinal fusion C5-C7 in 2000. Patient reports a recent MRI shows significant arthritis in her neck. Patient reports she was seen by [facility] and was recommended totry Chiro/Acupunture and TRACE which is scheduled for tomorrow. Prior to onset, the patient was able to turn her head and drive without pain, sit at computer 2 hours without neck pain. Patient notes thatdue to symptoms, they can only sit 1/2, and driving is painful. Megan Choi notes driving rated at a 8/10 painful and prior to this incident it was 2/10. MRI June 2017: IMPRESSION: ?? 1. Anterior fusion at C5-C6 and C6-C7. The fusion appears solid. 2. Degenerative changes at C3-C4 and C4-C5 with bulging disks and small central disc osteophyte complexes at these levels. 3. No focal right-sided disc herniations are seen. 3. The most significant right-sided finding is at the C4-C5 level where there are moderate-severe degenerative changes in the right facet joint. There is associated bone marrow edema in the articular processes at this level. Injury: No history of trauma or injury Location of Pain: mid to lower neck, worse on the right, radicular right arm pain, at the following level(s) Occiput, C1 , C6 , C7 and T1 Duration of Pain: 20+ year, worse in the last year Rating of Pain at worst: 9/10 Rating of Pain Currently: 8/10 Symptoms are better with: Rest Symptoms are worse with: prolonged computer work, driving, sleeping Additional Features: Pain in right thumb, pain travels at time down the right arm. 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 Past Medical History: Diagnosis Date ??? Arthritis [...] PERONEAL; Surgeon: Agatha Null, DPM, Pod; Location: [facility] OR Objective LMP 10/30/2011 GENERAL APPEARANCE: healthy, alert and no distress GAIT: NORMAL SKIN: no suspicious lesions or rashes NEURO: Normal strength and tone, mentation intact and speech normal PSYCH: mentation appears normal and affect normal/bright Cervical Spine Exam Range of Motion: Moderate reduction active and passive ROM forward flexion, extension, lateral rotation, lateral flexion. Neck pain noted on flexion, right and left rotation and lateral flexion Inspection: No visible deformity normal lordotic curvature maintained Tender: paraspinal muscles upper border of trapezius Non-Tender: remainder of cervical spine area Muscle strength: C5 (shoulder abduction) symmetric 5/5 Normal C6 (elbow flexion) symmetric 5/5 Normal C7 (elbow extension) symmetric 5/5 Normal C8 (finger abduction, thumb flexion) symmetric 5/5 Normal Reflexes: C5 (biceps) symmetric 2 bilaterally C6 (supinator) symmetric 2 bilaterally C7 (triceps) symmetric 2 bilaterally Sensation: grossly intact througout bilateral upper extremities Special Tests: Cervical compression-Neg, foraminal compression left and right-produced neck pain Distraction - negative and Harris Murphy - negative Lymphatics: no edema noted in the upper extremities Segmental spinal dysfunction/restrictions found at: : C1 Right rotation restricted C4 Right rotation restricted T2 Right rotation restricted. The following soft tissue hypotonicities were observed:Traps: ache, referred pain: no Trigger points were found in:Traps Muscle spasm found in:Sub-occipital, T-spine paraspinal and Traps Radiology: See MRI results in EPIC Assessment: No diagnosis found. RX ordered/plan of care Anticipated outcomes Possible risks and side effects After discussing the risk and benefits of care, patient consented to treatment Patient's condition: Patient had restrictions pre-manipulation Treatment effectiveness: Post manipulation there is better intersegmental movement and Patient claims to feel looser post manipulation Plan: Procedures: Evaluation and Management: 23377 Moderate level exam 30 min CMT: 21694 Chiropractic manipulative treatment 1-2 regions performed Occiput: Gentle distraction-x10, C0, Supine Cervical: Gentle PtoA mob'sC4, T2, Supine NO rotary manipulation due to fusion C5-C7 Activator to right first rib Modalities: 47215: Acupuncture, for 15 minutes: Points: For neck and upper back pain-patient seated 15min Therapeutic procedures: None Response to Treatment Patient tolerated the treatment well today. Prognosis: Fair-due to chronic nature of symptoms Treatment plan and goals: Goals: SLEEPING: the patient specific goal is to attain his pre-injury status of 6 hours comfortably PAIN: the patient specific goal of thier symptoms is to attain the pre-inury state of 2/10 on the VAS Frequency of care Duration of care is estimated to be 8 weeks, from the initial treatment. It is estimated that the patient will need a total of 6-8 visits to resolve this episode. For the initial therapeutic trial of care, the frequency is recommended at 1 X week, once daily. A reevaluation would be clinically appropriate in 6-8 visits, to determine progress and further course of care. In-Office Treatment Evaluation hiropractic manipulative treatment 1-2 regions performed Occiput: Gentle distraction-x10, C0, Supine Cervical: Gentle PtoA mob'sC4, T2, Supine NO rotary manipulation due to fusion C5-C7 Activator to right first rib Modalities: 79119: Acupuncture, for 15 minutes: Points: For neck and upper back pain-patient seated 15min Recommendations: Instructions:ice 20 minutes every other hour as needed Follow-up: Return to care in one week. Disclaimer: This note consists of symbols derived from keyboarding, dictation and/or voice recognition software. As a result, there may be errors in the script that have gone undetected. Please consider this when interpreting information found in this chart. ER DEVELOPMENT MANAGER documented in this encounter Plan of Treatment Not on filedocumented as of this encounter Procedures Procedure Name Priority Date/Time Associated Diagnosis Comme nts HC ACUPUNCTURE, 1+ Routine 07/09/2017 1:43 PM Cervicalgi a NEEDLES, W/O ELECTRICAL DEALER DEVELOPMENT MANAGER Cervical segment STIM; INIT 15 MIN dysfunction PERSONAL CONTACT Thoracic segment dysfunction [facility] CHIROPRAC Routine 07/09/2017 1:43 PM Cervicalgia MANIP,SPINAL,1-2 DEALER DEVELOPMENT MANAGER Cervical segment REGIONS dysfunction Thoracic segment dysfunction documented in this encounter Visit Diagnoses Diagnosis Cervicalgia - Primary Cervical segment dysfunction Nonallopathic lesion of cervical region, not elsewhere classified Thoracic segment dysfunction Nonallopathic lesion of thoracic region, not elsewhere classified documented in this encounter Additional Health Concerns Assessment Noted Time PHQ-9 Depression Total Score: 12 06/12/2017 1:02 PM CS T documented as of this encounter Care Teams Neighborhood Conservation Officer Relationship Specialty Start Date End Date Vanda Guerrero MD PCP - General Internal Medicine 04/08/15 01/08/19 [address] [facility] [place] [address] Vanda Guerrero MD PCP - Assigned PCP 07/24/16 06/15/18 [address] [facility] [place] [id number] documented as of this encounter
--- OUTSIDE RECORDS SUMMARY | 2022-01-17 22:10 | XMS_ITS | Encounter Summary ---
:1965 Author Organization [place] Address [address] [place] [address] Care Team Providers Name Role Phone Vanda Guerrero MD Primary Care Provider [phone] Vanda Guerrero MD Unavailable JeanaNoreen girard SEMICONDUCTOR ENGINEER LINING VAMPER Unavailable [phone] JeanaNoreen girard SEMICONDUCTOR ENGINEER LINING VAMPER Unavailable [phone] JeanaNoreen girard SEMICONDUCTOR ENGINEER LINING VAMPER Primary Care Provider Kalyan Galvan Unavailable Unavailable Lashae Trevino [facility] Unavailable [phone] Eduardo Sharma MD Unavailable Rios Monteiro MD Unavailable Marcelo Artis-C Unavailable [phone] Rodrigo Man-C Unavailable Reason for Visit Reason Comments Medication Refill ONETOUCH ULTRA test strip; s imvastatin (ZOCOR) 20 MG tablet Encounter Details Date Type Department Care Team Description 12/21/2017 Refill [facility] Vanda Guerrero M edication Refill Clinic [facility] (ONETOUCH ULTRA test [address] [place] [address] [facility] strip ; simvastatin [facility] (ZOCOR) 20 MG tablet) [address] [place] [address] [place] [phone] Social History Tobacco Use Types Packs/Day Years [...] How often do you attend shinto or spiritism Patient refused 08/08/2019 services? Do you belong [...] this encounter Miscellaneous Notes Telephone Encounter - Day Greene RN - 12/25/2017 10:56 AM CDT Prescription approved per [facility] Refill Protocol. Day Greeen RN, BSN Telephone Encounter - Kartik Javier Iwona - 12/21/2017 4:51 PM CDT Requested Prescriptions Pending Prescriptions Disp Refills ??? ONETOUCH ULTRA test strip [Pharmacy Med Name: ONE TOUCH ULTRA BLUE TEST STRP] Last Written Prescription Date: 06/12/2017 Last Fill Quantity: 09/25/2017, # refills: 0 Last office visit: 06/12/2017 with prescribing provider: Vanda Guerrero MD Future Office Visit: 100 strip 0 Sig: USE TO TEST BLOOD SUGARS 1 TIMES DAILY OR DIRECTED. Diabetic Supplies Protocol Failed 12/21/2017 11:32 AM Failed - Recent (6 mo) or future (30 days) visit within the authorizing provider's specialty Patient had office visit in the last 6 months or has a visit in the next 30 days with authorizing provider. See Patient Info tab in inbasket, or Choose Columns in Meds & Orders section of the refill encounter. Passed - Patient is 18 years of age or older ??? simvastatin (ZOCOR) 20 MG tablet [Pharmacy Med Name: SIMVASTATIN 20 MG TABLET] Last Written Prescription Date: 05/16/2017 Last Fill Quantity: 90 tablet, # refills: 1 Last office visit: 06/12/2017 with prescribing provider: Vanda Guerrero MD Future Office Visit: 90 tablet 1 Sig: TAKE 1 TABLET (20 MG) BY MOUTH AT BEDTIME Statins Protocol Passed 12/21/2017 11:32 AM Passed - LDL on file in past 12 months Recent Labs Lab Test 02/17/17 0913 LDL 111* Passed - No abnormal creatine kinase in [...] 2 diabetes mellitus without complic ation (H) Hyperlipidemia LDL goal <100 Other and unspecified hyperlipidemia documented in this encounter Additional Health Concerns Infection Onset Date Last Indicated Resolved Time Rule Out COVID-19 08/25/2020 08/25/2020 08/26/2020 3:2 3 PM CDT Assessment Noted Time PHQ-9 Depression Total Score: 12 06/12/2017 1:02 PM CS T documented as of this encounter Care Teams Wireless Sales Manager Relationship Specialty Start Date End Date Vanda Guerrero, PCP - General Internal Medicine 04/08/15 01/08/[address] [place] [address] [place] [id number] Vanda Guerrero, PCP - Assigned PCP 07/24[facility]16 [facility] [place] [address] [place] PCP - Assigned PCP 06/16/18 08/13/[address] LINING VAMPER [facility] [place] [address] [place] PCP - General Nurse Practitioner 01/09/19 12/12/[address] LINING VAMPER [facility] [place] [address] [place] Assigned PCP 06/16/18 SEAN Haley LINING VAMPER [address] [place] [address] [place] [phone] Kalyan Galvan Personal Advocate & 08/08/19 Liaison (PAL) Lashae Trevino Pharmacist Pharmacist 10/14/19 12/01/20 [facility] [address] [place] [address] Eduardo Sharma MD Assigned Sleep Provider 04/02/20 05/07/[address] [place] [address] Rios Monteiro MD Assigned Musculoskeletal 04/02/20 08/24/[id number] Provider [address] [place], [place] [id number] Marcelo Artis Assigned Musculoskeletal 08/25/20 08/20/21 MIKAYLA Nuno Provider [address] [place], [place] [address] Rodrigo Man Assigned Surgical 08/25/2011/27 MIKAYLA Lacy Provider [address] [place] [address] documented as of this encounter
--- OUTSIDE RECORDS SUMMARY | 2022-01-17 22:10 | XMS_ITS | Encounter Summary ---
:1965 Author Organization [employer] Address [address] [place] [address] Care Team Providers Name Role Phone Vanda Guerrero MD Primary Care Provider [phone] Vanda Guerrero MD Unavailable Reason for Referral Consultation - Closed Specialty Diagnoses / Procedures Referred By Contact Refer red To Contact Diagnoses Multiple pigmented nevi Vanda Guerrero MD [facility], [address] [place] [address] [address] [place] [address] [place] [address] Fax: Referral ID Status Reason Start Date Expiration Date Visits Requ ested Visits Authorized [id number] Closed 06/12/2017 06/12/2018 1 1 LIER QUALITY ENGINEER Consultation - Closed Specialty Diagnoses / Procedures Referred By Contact Refer red To Contact Diagnoses Degenerative disc disease, cervical Vanda Guerrero MD [facility] [address] [place] [address] CL-RH- REFERRAL (OP) [phone] [place] [address] [address] [place] [address] Phone: Fax: Referral ID Status Reason Start Date Expiration Date Visits Requ ested Visits Authorized [id number] Closed 06/12/2017 06/12/2018 1 1 LIER QUALITY ENGINEER Reason for Visit Reason Comments Diabetes Lipids Recheck Medication Encounter Details Date Type Department Care Team Description 06/12/2017 Office Visit [facility] Vanda Guerrero ative disc disease, cervical (Primary Dx); Clinic Pino Toribio MD Moderate episode of recurrent major depr essive disorder (H); [address] [facility] Morbi d obesity (H); [facility] Type 2 diabetes mellitus without complic ation, without long-term current use of insulin (H); [address] [place] [id number] Anxiety; [place] [id number] Muscle spasm; [phone] Persisten t insomnia; Fibromyalgia; Multiple pigmen jayne nevi; Dysfunction of Eustachian tube, bilateral; Fatigue, unspec ified type; Need for influe nza vaccination Social History Tobacco Use Types Packs/Day Years [...] How often do you attend mu-ism or church Patient refused 08/08/2019 services? Do [...] Sign Reading Time Taken Comments Blood Pressure 116/72 06/12/2017 12:11 PM SUPPLIER QUALITY ENGINEER Pulse 76 06/12/2017 12:11 PM SUPPLIER QUALITY ENGINEER Temperature 36.4 ??C (97.6 ??F) 06/12/2017 12:11 PM SUPPLIER QUALITY ENGINEER Respiratory Rate - - Oxygen Saturation 99% 06/12/2017 12:11 PM SUPPLIER QUALITY ENGINEER Inhaled Oxygen Concentration - - Weight 90.7 kg (200 lb) 06/12/2017 12:11 PM SUPPLIER QUALITY ENGINEER Height 157.5 cm (5' 2) 06/12/2017 12:11 PM SUPPLIER QUALITY ENGINEER Body Mass Index 36.58 06/12/2017 12:11 PM SUPPLIER QUALITY ENGINEER documented in this encounter Patient Instructions Patient InstructionsVanda Guerrero MD - 06/12/2017 12:00 PM CST Expect a call to set up a visit with the master lay out specialist. Increase your citalopram to 1.5 pills per day. Stop the zanaflex and start robaxin (methocarbamol) in its place for your muscle pain Repeat labs today Numbers below for dermatology visit for the spot on your left shoulder Trial of ambien for sleep - don't drive on this - think about trying a 1/2 tablet first LIER QUALITY ENGINEER documented in this encounter Progress Notes Vanda Guerrero MD - 06/12/2017 12:00 PM CST SUBJECTIVE: Megan Choi is a 52 year old female who presents to clinic today for the following health issues: Diabetes Follow-up ?? Patient is checking blood sugars: rarely. Results range from 109 to 112 ?? Diabetic concerns: None ?? Symptoms of hypoglycemia (low blood sugar): none ?? Paresthesias (numbness or burning in feet) or sores: No ?? Date of last diabetic eye exam: 12/2016 No new cardiac symptoms. BP Readings from Last 2 Encounters: 12/19/16 118/76 10/11/16 116/85 Hemoglobin A1C (%) Date Value 09/25/2016 5.9 03/23/2016 6.1 (H) LDL Cholesterol Calculated (mg/dL) Date Value 02/17/2017 111 (H) 12/03/2015 79 Hyperlipidemia Follow-Up ?? Rate your low fat/cholesterol diet?: poor ?? Taking statin? Yes, possible muscle aches from statin ?? Other lipid medications/supplements?: none Depression Followup ?? Status since last visit: stable, could increase back up to 1.5, currently taking 1 tab ?? See PHQ-9 for current symptoms. Other associated symptoms: None ?? Complicating factors: Significant life event: No Current substance abuse: None Anxiety or Panic symptoms: No PHQ-9 Score and MyChart F/U Questions 12/22/2015 10/11/2016 06/12/2017 Total Score 10 9 12 Q9: Suicide Ideation Not at all Not at all Not at all In the past two weeks have you had thoughts of suicide or self-harm? No. Do you have concerns about your personal safety or the safety of others? No PHQ-9 Indonesian PHQ-9 Any Language Suicide Assessment Five-step Evaluation and Treatment (SAFE-T) ? Problems taking medications regularly: No ?? Medication side effects: none Diet: regular (no restrictions) Depression - still seeing therapist regularly. Last thought of self harm 7 months ago, but none at present. Currently taking only 1 tab of celexa instead of the 1.5 prescribed. Also on cymbalta. No side effects from medication. High stress level. Caring for many family members. Neck pain - worsened - known disc bulging at levels about past cervical spine fusion. Strength maintained - no changes in sensation. Twitchy muscle movements intermittently. Insomnia - says that she snores. also snores and this keeps her up. Also up from thepain. Feels terribly fatigued all the time. Ears have been popping - wondering about ETD. Spot on her left shoulder has been changing. Problem list and histories reviewed & adjusted, as indicated. Additional history: as documented Reviewed and updated as needed this visit by clinical staff Reviewed and updated as needed this visit by Provider ROS: Constitutional, HEENT, cardiovascular, pulmonary, gi and msk, neuro systems are negative, except as otherwise noted. OBJECTIVE: BP 116/72 (BP Location: Right arm, Patient Position: Right side, Cuff Size: Adult Large) Pulse 76 Temp 97.6 ??F (36.4 ??C) (Tympanic) Ht 5' 2 (1.575 m) Wt 200 lb (90.7 kg) LMP 10/30/2011 SpO2 99% BMI 36.58 kg/m2 Body mass index is 36.58 kg/(m^2). Wt Readings from Last 4 Encounters: 06/12/17 200 lb (90.7 kg) 12/19/16 193 lb 3.2 oz (87.6 kg) 10/11/16 194 lb 1.6 oz (88 kg) 09/25/16 191 lb (86.6 kg) GENERAL: alert and no distress HENT: both ears: clear effusion, oropharynx clear and oral mucous membranes moist RESP: lungs clear to auscultation - no rales, rhonchi or wheezes CV: regular rate and rhythm, normal S1 S2, no S3 or S4, no murmur, click or rub, no peripheral edemaand peripheral pulses strong MS: tender to palpation over cervical spinous processes and trapezius musculature NEURO: Normal strength and tone, mentation intact and speech normal PSYCH: mentation appears normal, affect flat, fatigued, judgement and insight intact and appearance well groomed Skin: pearly papule with scaling on one side left lateral shoulder concerning for BCC Diagnostic Test Results: pending ASSESSMENT/PLAN: ICD-10-CM 1. Degenerative disc disease, cervical M50.30 ORTHO BAR TACKER REFERRAL Recommended repeat evaluation for cervical spine given increase in pain, past hx of fusion, known disc bulging superior to fusion 2. Moderate episode of recurrent major depressive disorder (H) F33.1 Worsening - increase citalopramback to 30mg daily. 3. Morbid obesity (H) E66.01 Labs today 4. Type 2 diabetes mellitus without complication, without long-term current use of insulin (H) E11.9Comprehensive metabolic panel Hemoglobin A1c Has been under good control - recheck labs today 5. Anxiety F41.9 citalopram (CELEXA) 20 MG tablet Increase citalopram dosing to 30mg daily, continue work with therapist 6. Muscle spasm M62.838 methocarbamol (ROBAXIN) 500 MG tablet Stop zanaflex as patient feels that this has stopped working - trial of robaxin. Reviewed risks/beneftis. 7. Persistent insomnia G47.00 zolpidem (AMBIEN) 5 MG tablet Trial of ambien at low dose. Reviewed risks/benefits/side effects. Hope for improvement in sleep with better pain control, improvement in neck pain 8. Fibromyalgia M79.7 DULoxetine (CYMBALTA) 30 MG EC capsule 9. 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 Dysfunction of Eustachian tube, bilateral H69.83 fluticasone (FLONASE) 50 MCG/ACT spray 11. Fatigue, unspecified type R53.83 Vitamin D Deficiency 12. Need for influenza vaccination Z23 HC FLU VAC PRESRV FREE QUAD SPLIT VIR 3+YRS IM See Patient Instructions Vanda Guerrero MD [facility] LIER QUALITY ENGINEER documented in this encounter Nursing Notes Lori Weber - 06/12/2017 12:00 PM CST Chief Complaint Patient presents with ??? Diabetes ??? Lipids ??? Recheck Medication Initial BP 116/72 (BP Location: Right arm, Patient Position: Right side, Cuff Size: Adult Large) Pulse 76 Temp 97.6 ??F (36.4 ??C) (Tympanic) Ht 5' 2 (1.575 m) Wt 200 lb (90.7 kg) LMP 10/30/2011 SpO2 99% BMI 36.58 kg/m2 Estimated body mass index is 36.58 kg/(m^2) as calculated from the following: Height as of this encounter: 5' 2 (1.575 m). Weight as of this encounter: 200 lb (90.7 kg). Medication Reconciliation: complete LIER QUALITY ENGINEER documented in this encounter Plan of Treatment Pending Results Name Type Priority Associated Diagnoses Date/Ti me ORTHO BAR TACKER REFERRAL Referral Routine Degenerative dis c disease, 06/13/2017 cervical Scheduled Referrals Name Type Priority Associated Diagnoses Order S chedule DERMATOLOGY REFERRAL Referral Routine Multiple pigmented n missy Ordered: 06/12/2017 documented as of this encounter Procedures Procedure Name Priority Date/Time Associated Comments Diagnosis VITAMIN D DEFICIENCY Routine 06/12/2017 12:55 Fatigue, Res ults for this SCREENING PM SUPPLIER QUALITY ENGINEER unspecified type procedure a re in the results section. HEMOGLOBIN A1C Routine 06/12/2017 12:55 Type 2 diabetes Result s for this PM SUPPLIER QUALITY ENGINEER mellitus without procedure a re in complication, the results without long-term section. current use of insulin (H) Morbid obesity (H) COMPREHENSIVE Routine 06/12/2017 12:55 Type 2 diabetes Results for this METABOLIC PANEL PM SUPPLIER QUALITY ENGINEER mellitus without procedur e are in complication, the results without long-term section. current use of insulin (H) Morbid obesity (H) documented in this encounter Results Vitamin D Deficiency (06/12/2017 12:55 PM SUPPLIER QUALITY ENGINEER) P athologist Signature Vitamin D 35 20 - 75 06/13/2017 [facility] Deficiency ug/L 11:48 AM SUPPLIER QUALITY ENGINEER [facility] Comment: Season, race, dietary intake, and treatm ent affect the concentration of 64-auygisy-Twxxrdd D. Values may decreas e during winter [...] Location / / Volume Laterality Blood specimen 06/12/2017 12:55 8 (specimen) PM SUPPLIER QUALITY ENGINEER 12:56 PM SUPPLIER QUALITY ENGINEER Vanda Guerrero MD LAB - BLOOD ORDERABLES Performing Organization Address City/State/ZIP Code Phon e Number [address] [address] [facility] (ABNORMAL) Hemoglobin A1c (06/12/2017 12:55 PM SUPPLIER QUALITY ENGINEER) athologist Signature Hemoglobin A1C 6.7 (H) 4.3 - 6.0 06/12/2017 [place] % 1:47 PM SUPPLIER QUALITY ENGINEER [facility] Specimen Anatomical Collection Method Collection Time Receive d Time (Source) Location / / Volume Laterality Blood specimen 06/12/2017 12:55 8 (specimen) PM SUPPLIER QUALITY ENGINEER 12:56 PM SUPPLIER QUALITY ENGINEER Vanda Guerrero MD LAB - BLOOD ORDERABLES Performing Organization Address City/State/ZIP Code Phon e Number [address] [address] (ABNORMAL) Comprehensive metabolic panel (06/12/2017 12:55 PM SUPPLIER QUALITY ENGINEER) [facility] gist Method Time Signature Sodium 147 (H) 133 - 144 06/13/2017 [facility] mmol/L 8:14 AM [facility] Potassium 4.5 3.4 - 5.3 06/13/2017 [facility] mmol/L 8:14 AM [facility] Chloride 112 (H) 94 - 109 06/13/2017 [facility] mmol/L 8:14 AM [facility] Carbon Dioxide 30 20 - 32 06/13/2017 [facility] mmol/L 8:14 AM [facility] Anion Gap 5 3 - 14 06/13/2017 [facility] mmol/L 8:14 AM [facility] Glucose 125 (H) 70 - 99 06/13/2017 [place] mg/dL 8:14 AM [facility] Urea Nitrogen 11 7 - 30 06/13/2017 [place] mg/dL 8:14 AM [facility] Creatinine 0.70 0.52 - 06/13/2017 [place] 1.04 mg/dL 8:14 AM [facility] GFR Estimate 87 >60 06/13/2017 [place] mL/min/1.7 8:14 AM [facility] m2 [facility] Comment: Non GFR Calc GFR Estimate If >90 >60 mL/min/1.7m2 06/13/2017 8:14 A M [facility] Black [facility] Comment: GFR Calc Calcium 9.2 8.5 - 10.1 06/13/2017 8:14 AM [facility] mg/dL [facility] Bilirubin Total 0.2 0.2 - 1.3 06/13/2017 8:14 AM [facility] mg/dL [facility] Albumin 3.6 3.4 - 5.0 g/dL 06/13/2017 8:14 AM [facility] EW [facility] Protein Total 7.4 6.8 - 8.8 g/dL 06/13/2017 8:14 AM [facility] [place] [facility] Alkaline Phosphatase 194 (H) 40 - 150 U/L 06/13/2017 8:14 AM [facility] ALT 31 0 - 50 U/L 06/13/2017 8:14 AM [place] [facility] AST 25 0 - 45 U/L 06/13/2017 8:14 AM [facility] Specimen Anatomical Collection Method Collection Time Receive d Time (Source) Location / / Volume Laterality Blood specimen 06/12/2017 12:55 8 (specimen) PM SUPPLIER QUALITY ENGINEER 12:56 PM SUPPLIER QUALITY ENGINEER Vanda Guerrero MD LAB - BLOOD ORDERABLES Performing Organization Address City/State/ZIP Code Phon e Number [facility] [address] [place] [address] documented in this encounter Visit Diagnoses Diagnosis Degenerative disc disease, cervical - Pr imary Degeneration of cervical intervertebral disc Moderate episode of recurrent major depr essive disorder (H) Morbid obesity (H) Morbid obesity Type 2 diabetes mellitus without complic ation, without long-term current use of insulin (H) Anxiety Anxiety state, unspecified Muscle spasm Spasm of muscle Persistent insomnia Persistent disorder of initiating or martínez ntaining sleep Fibromyalgia Mylagia and myositis, unspecified Multiple pigmented nevi Benign neoplasm of skin, site unspecifie d Dysfunction of Eustachian tube, bilatera l Fatigue, unspecified type Need for influenza vaccination Need for prophylactic vaccination and in oculation against influenza documented in this encounter Additional Health Concerns Assessment Noted Time PHQ-9 Depression Total Score: 12 06/12/2017 1:02 PM CS T documented as of this encounter Care Teams Dope Sprayer Relationship Specialty Start Date End Date Vanda Guerrero MD PCP - General Internal Medicine 04/08/15 01/08/19 [address] [facility] [place] [phone] Vanda Guerrero MD PCP - Assigned PCP 07/24/16 06/15/18 [address] [facility] [place] [id number] documented as of this encounter
--- OUTSIDE RECORDS SUMMARY | 2022-01-17 22:10 | XMS_ITS | Encounter Summary ---
:1965 Author Organization [place] Address [address] [place] [address] Care Team Providers Name Role Phone Vanda Guerrero MD Primary Care Provider Vanda Guerrero MD Unavailable Reason for Referral [facility] - Closed Specialty Diagnoses / Procedures Referred By Contact Refer red To Contact Diagnoses Rosalia Pagan APRN CNP [facility] [address] [place] [address] Referral ID Status Reason Start Date Expiration Date Visits Requ ested Visits Authorized [id number] Closed 06/27/2017 06/27/2018 1 1 TYPIST Diagnostic Imaging MRI - Closed Specialty Diagnoses / Procedures Referred By Contact Refer red To Contact Radiology. Diagnoses Rosalia Pagan APRN Mri Procedures MR Cervical Spine w/o Contrast [employer] [address] [facility] [place], [place] [address] [address] [place] [address] Referral ID Status Reason Start Date Expiration Date Visits Requ ested Visits Authorized [id number] Closed 06/27/2017 06/27/2018 1 1 TYPIST Diagnostic Imaging XR - Closed Specialty Diagnoses / Procedures Referred By Contact Refer red To Contact Diagnoses Cervicalgia Rosalia Main APRN Procedures XR Cervical Spine 2/3 Views [facility] [address] [place] [address] Referral ID Status Reason Start Date Expiration Date Visits Requ ested Visits Authorized [id number] Closed 06/27/2017 06/27/2018 1 1 TYPIST Reason for Visit Reason Comments Neurologic Problem DDD, Cervical radiates down the right side into the right shoulder more than left down to the e lbow, patient has hand numbness and tingling at times weakness, has had previous surgery with Dr. Brandt in 2000 Encounter Details Date Type Department Care Team Description 06/27/[address] [facility] Rosalia Main Cervical bola (Primary [facility] Neurosurgery SEAN Angeles CN P Dx) [facility] [address] [facility] [address] [place] [address] [phone] Social History Tobacco Use Types Packs/Day Years [...] 08/08/2019 relatives? How often do you attend latter day or adventist Patient refused 08/08/2019 services? Do you belong to any clubs or organizations such as No 08/08/2019 latter day groups, unions, fraternal or athletic groups, or [...] Sign Reading Time Taken Comments Blood Pressure 124/77 06/27/2017 10:03 AM DATA TYPIST Pulse 83 06/27/2017 10:03 AM DATA TYPIST Temperature - - Respiratory Rate - - Oxygen Saturation 97% 06/27/2017 10:03 AM DATA TYPIST Inhaled Oxygen Concentration - - Weight 90.7 kg (200 lb) 06/27/2017 10:03 AM DATA TYPIST Height 157.5 cm (5' 2) 06/27/2017 10:03 AM DATA TYPIST Body Mass Index 36.58 06/27/2017 10:03 AM DATA TYPIST documented in this encounter Patient Instructions Patient InstructionsSchmidtRosalia APRN [employer] - 06/27/2017 10:00 AM DATA TYPIST 1. Please call [facility] Radiology to have cervical MRI completed. Call [phone]. I will contact you with results. 2. Cervical xray today 3. Please schedule your career placement specialist with [facility] TYPIST documented in this encounter Progress Notes Rosalia Main APRN CNP - 06/27/2017 10:[address] Raoul aDnielson [facility] Neurosurgery Clinic Visit CC: neck and arm pain Primary care Provider: Vanda Guerrero Reason For Visit: I was asked by Dr. Guerrero to consult on the patient for cervical radicular pain. HPI: Megan Choi is a 52 year old female with cervical radicular pain. She notes that she hadC5-7 fusion in [address] [facility] [employer]. We are in the process of obtaining the records. She states that she has chronic migraines. She has neck pain and down into her right shoulder. She states that shehas good strength to her right hand. She denies any paraesthesias or tingling down her arm. She notes that ROM to her neck and activity makes it worse and nothing makes it better. She has not had any PT or injection therapy for her pain. Pain at its worst 10 Pain right now: 9 Past Medical History: Diagnosis Date ??? Arthritis ??? Diabetes mellitus (H) Type 2 ??? Dvt femoral (deep venous thrombosis) (H) 04/17 post surgical, stopped coumadin 01/16 ??? IFG (impaired fasting glucose) 10/03/2015 Past Medical History reviewed with patient during visit. Past Surgical History: Procedure Laterality Date ??? C SPINAL FUSION,ANT,EA ADNL LEVEL 2004 L5, S1, Repeated in 2005 ??? C SPINAL FUSION,ANT,EA ADNL LEVEL 2006 SI joints ??? C SPINAL FUSION,ANT,EA ADNL LEVEL 2000 C5-C7 fused ??? SECTION ??? ENT SURGERY T&A < 10 y/o ??? REPAIR TENDON PERONEAL Left 06/08/2016 Procedure: REPAIR TENDON PERONEAL; Surgeon: Agatha Null, DPM, Pod; Location: [facility] OR Past Surgical History reviewed with patient during visit. Current Outpatient Prescriptions Medication ??? metFORMIN (GLUCOPHAGE) 500 MG tablet ??? citalopram (CELEXA) 20 MG tablet ??? methocarbamol (ROBAXIN) 500 MG tablet ??? DULoxetine (CYMBALTA) 30 MG EC capsule ??? zolpidem (AMBIEN) 5 MG tablet ??? fluticasone (FLONASE) 50 MCG/ACT spray ??? simvastatin (ZOCOR) 20 MG tablet ??? omeprazole (PRILOSEC) 20 MG CR capsule ??? [facility] 24 HOUR 10-240 MG per 24 hr tablet ??? order for DME ??? topiramate (TOPAMAX) 50 MG tablet ??? loratadine (CLARITIN) 10 MG tablet ??? IBUPROFEN PO ??? Acetaminophen (TYLENOL PO) ??? blood glucose monitoring (ONE TOUCH DELICA) lancets ??? cholecalciferol (VITAMIN D3) 96454 UNITS capsule ??? order for DME ??? order for DME ??? SUMAtriptan (IMITREX) 25 MG tablet ??? estradiol (ESTRACE) 0.1 MG/GM vaginal cream ??? multivitamin, therapeutic with minerals (MULTI-VITAMIN) TABS ??? blood glucose monitoring (ACCU-CHEK MULTICLIX) lancets ??? JAY/ARB NOT PRESCRIBED, INTENTIONAL, ??? blood glucose (ACCU-CHEK JANICE) test strip ??? ASPIRIN PO No current facility-administered medications for this visit. Allergies Allergen Reactions ??? Erythromycin Rash Social History Social History ??? Marital status: Spouse name: N/A ??? Number of children: N/A ??? 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 Smoking status: Never Smoker ??? Smokeless tobacco: Never Used ??? Alcohol use Yes Comment: Rare ??? Drug use: No ??? Sexual activity: Yes Partners: Male control/ protection: Surgical Comment: Tubal Other Topics Concern ??? Parent/Sibling W/ Cabg, Mi Or Angioplasty Before 65f 55m? No Social History Narrative Family History Problem Relation Age of Onset ??? Cardiovascular Mother MS age 72 ??? DIABETES Mother Type II ??? Hypertension Mother ??? Lipids Mother ??? Arthritis Mother OA ??? KIDNEY DISEASE Mother 70 ??? Cardiovascular Father MS early 40s, subsequent bipass ??? Hypertension Father ??? DIABETES Father ??? Lipids Father ??? DIABETES Maternal Grandmother ??? Hypertension Maternal Grandmother ??? Lipids Maternal Grandmother ??? DIABETES Maternal Grandfather ??? Hypertension Maternal Grandfather ??? Lipids Maternal Grandfather ??? DIABETES Paternal Grandmother ??? Hypertension Paternal Grandmother ??? Cardiovascular Paternal Grandmother ??? Lipids Paternal Grandmother ??? DIABETES Paternal Grandfather ??? Hypertension Paternal Grandfather ??? Cardiovascular Paternal Grandfather ??? Lipids Paternal Grandfather ??? Lipids Sister ??? Lipids Sister ??? Lipids Brother ??? Hypertension Sister ??? Hypertension Sister ??? Hypertension Brother ??? DIABETES Sister ??? DIABETES Sister ??? DIABETES Brother ??? KIDNEY DISEASE Brother 55 Review Of Systems Skin: negative Eyes: negative Ears/Nose/Throat: negative Respiratory: No shortness of breath, dyspnea on exertion, cough, or hemoptysis Cardiovascular: negative Gastrointestinal: negative Genitourinary: negative Musculoskeletal: neck pain Neurologic: migraine headaches and arm pain Psychiatric: negative Hematologic/Lymphatic/Immunologic: negative Endocrine: diabetes ROS: 10 point ROS neg other than the symptoms noted above in the HPI. Vital Signs: BP 124/77 (BP Location: Right arm, Patient Position: Sitting, Cuff Size: Adult Large) Pulse 83 Ht 5' 2 (1.575 m) Wt 200 lb (90.7 kg) LMP 10/30/2011 SpO2 97% BMI 36.58 kg/m2 Examination: Constitutional: Alert, well nourished, NAD. Memory: recent and remote memory intact HEENT: Normocephalic, atraumatic. Pulm: Without shortness of breath CV: No pitting edema of BLE. Neurological: Awake Alert Oriented x 3 Speech clear Cranial nerves II - XII intact PERRL EOMI Face symmetric Tongue midline Motor exam Shoulder Abduction: Right: 5/5 Left: 5/5 Biceps: Right: 5/5 Left: 5/5 Triceps: Right: 5/5 Left: 5/5 Wrist Extensors: Right: 5/5 Left: 5/5 Wrist Flexors: Right: 10/13 Left: 5 Intrinsics: Right: 5 Left: 10/13 Hip Flexor: Right: 10/13 Left: 10/13 Hip Adductor: Right: 10/13 Left: 10/13 Hip Abductor: Right: 10/13 Left: 10/13 Gastroc Soleus: Right: 10/13 Left: 10/13 Tib/Ant: Right: 10/13 Left: 10/13 EHL: Right: 10/13 Left: 10/13 Sensation normal to bilateral upper and lower extremities Muscle tone to bilateral upper and lower extremities normal Gait: Able to stand from a seated position. Normal non-antalgic, non-myelopathic gait. Able to heel/toe walk without loss of balance Cervical examination reveals restricted and painful range of motion. Tenderness to palpation of the cervical spine and paraspinous muscles bilaterally. Pain with palpation to the bilateral occiput. 18 out of 18 tender points positive Imaging: NONE Assessment/Plan: Megan Choi is a 52 year old female with cervical radicular pain. She notes that she hadC5-7fusion in 2000 at [facility]. We are in the process of obtaining the records. She states that she has chronic migraines. She has neck pain and down into her right shoulder. She states that she hasgood strength to her right hand. She denies any paraesthesias or tingling down her arm. She notes that ROM to her neck and activity makes it worse and nothing makes it better. She has not had any PT orinjection therapy for her pain. The pt has myofacial pain as well. She is neurologically intact. Thept was educated that we will need updated scans. She is open to this. We will have her try career placement specialist as well through [facility]. She is open to this. Patient Instructions 1. Please call [facility] Radiology to have cervical MRI completed. Call [phone]. I will contact you with results. 2. Cervical xray today 3. Please schedule your career placement specialist with [facility] [address] [place] [address] Pager [phone] TYPIST documented in this encounter Plan of Treatment Scheduled Referrals Name Type Priority Associated Diagnoses Order S chedule [facility] PT, HAND, AND Referral Routine Cervicalgia Ordered: 0 06/27/2017 CHIROPRACTIC REFERRAL documented as of this encounter Results MR Cervical Spine w/o Contrast (06/28/2017 1:36 PM DATA TYPIST) Anatomical Region Laterality Modality Spine, SUBRAD MR NEURO, UMP MR SPINE, RAD MR Magnetic Resonance Specimen (Source) Anatomical Location Collection Method / Collectio n Time Received Time / Laterality Volume Impressions 06/28/2017 2:37 PM DATA TYPIST IMPRESSION: ?? 1. Anterior fusion at C5-C6 and C6-C7. T he fusion appears solid. 2. Degenerative changes at C3-C4 and C4- C5 with bulging disks and small central disc osteophyte complexes at these levels. 3. No focal right-sided disc herniations are seen. 3. The most significant right-sided find ing is at the C4-C5 level where there are moderate-severe degenera tive changes in the right facet joint. There is associated bone ma rrow edema in the articular processes at this level. MILAGROS JC MD Narrative 06/28/2017 2:37 PM DATA TYPIST MRI CERVICAL SPINE WITHOUT CONTRAST June 28, 2017 1:36 PM HISTORY: Cervicalgia. TECHNIQUE: Multiplanar, multisequence MR I of the cervical spine without contrast. COMPARISON: None. FINDINGS: The patient is status post an anterior fusion at C5-C6 and C6-C7. Fusion appears solid. An anterior plate is in place. There is curvature of the upper cervical spine co nvex towards the right and lower cervical spine convex towards the left. A hemangioma Is seen within the T1 vertebral body. The parasp inal soft tissues appear normal. The bone marrow has normal signa l intensity. Craniocervical Junction and C1-C2: Michell l. C2-C3: Mild symmetric annular disc bulge . Central canal normal. C3-C4: Degeneration of the disc. Mild di ffuse annular disc bulge. More focal central disc osteophyte complex ex tending both to the right and left of midline leading to mild-moderate central stenosis and slight flattening of the cervical cord. The brent ral foramen are patent. C4-C5: Degeneration of the disc. Mild di ffuse annular disc bulge. Small central disc osteophyte complex ca using mass effect on the dural sac and leading to mild central stenosis and mild flattening of the cord. Mild foraminal stenosis due to los s of disc space height. Moderate-severe degenerative change in t he right facet joint. There is associated bone marrow edema in the shayy cent articular processes. This is best seen on sagittal images 3 and 4 of series 3 and series 5. C5-C6: Solid anterior fusion. Central ca nal adequate. Neural foramen appear patent. C6-C7: Solid anterior fusion. Central ca nal and neural foramen are patent. C7-T1: Mild annular disc bulge. Central canal and neural foramen are patent. T1-T2: Normal disc, facet joints, spinal canal and neural foramina. Procedure Note Prince Jc MD - 06/28/2017For matting of this note might be different from the original. MRI CERVICAL SPINE WITHOUT CONTRAST Christopher delong 2017 1:36 PM HISTORY: Cervicalgia. TECHNIQUE: Multiplanar, multisequence MR I of the cervical spine without contrast. COMPARISON: None. FINDINGS: The patient is status post an anterior fusion at C5-C6 and C6-C7. Fusion appears solid. An anterior plate is in place. There is curvature of the upper cervical spine co nvex towards the right and lower cervical spine convex towards the left. A hemangioma Is seen within the T1 vertebral body. The parasp inal soft tissues appear normal. The bone marrow has normal signa l intensity. Craniocervical Junction and C1-C2: Michell l. C2-C3: Mild symmetric annular disc bulge . Central canal normal. C3-C4: Degeneration of the disc. Mild di ffuse annular disc bulge. More focal central disc osteophyte complex ex tending both to the right and left of midline leading to mild-moderate central stenosis and slight flattening of the cervical cord. The brent ral foramen are patent. C4-C5: Degeneration of the disc. Mild di ffuse annular disc bulge. Small central disc osteophyte complex ca using mass effect on the dural sac and leading to mild central stenosis and mild flattening of the cord. Mild foraminal stenosis due to los s of disc space height. Moderate-severe degenerative change in t he right facet joint. There is associated bone marrow edema in the shayy cent articular processes. This is best seen on sagittal images 3 and 4 of series 3 and series 5. C5-C6: Solid anterior fusion. Central ca nal adequate. Neural foramen appear patent. C6-C7: Solid anterior fusion. Central ca nal and neural foramen are patent. C7-T1: Mild annular disc bulge. Central canal and neural foramen are patent. T1-T2: Normal disc, facet joints, spinal canal and neural foramina. IMPRESSION: 1. Anterior fusion at C5-C6 and C6-C7. T he fusion appears solid. 2. Degenerative changes at C3-C4 and C4- C5 with bulging disks and small central disc osteophyte complexes at these levels. 3. No focal right-sided disc herniations are seen. 3. The most significant right-sided find ing is at the C4-C5 level where there are moderate-severe degenera tive changes in the right facet joint. There is associated bone ma rrow edema in the articular processes at this level. MILAGROS JC MD Rosalia Main APRN [employer] IMG MRI ORDERABLES XR Cervical Spine 2/3 Views (06/27/2017 10:30 AM DATA TYPIST) Anatomical Region Laterality Modality Spine Computed Radiography Specimen (Source) Anatomical Location Collection Method / Collectio n Time Received Time / Laterality Volume Impressions 06/27/2017 4:33 PM DATA TYPIST IMPRESSION: Flexion and extension lateral views only. 1 mm anterolisthesis C2 on C3 and C4 on C5. T hese levels reduce with extension. Anterior interbody fusion C5- C7 appears solid with normal alignment. Degenerative disc space narro wing C3-4. No acute bony or soft tissue abnormality in the lateral v iew. ROHAN PINK MD Narrative 06/27/2017 4:33 PM DATA TYPIST CERVICAL SPINE TWO - THREE VIEWS 06/27/2017 [...] lateral v iew. ROHAN PINK MD Rosalia Karthik Main SOAKER HIDES [employer] IMG DIAGNOSTIC IMAGING DAMASO MIRAMONTES documented in this encounter Visit Diagnoses Diagnosis Cervicalgia - Primary Cervicalgia Cervicalgia documented in this encounter Additional Health Concerns Assessment Noted Time PHQ-9 Depression Total Score: 12 06/12/2017 1:02 PM CS T documented as of this encounter Care Teams Front Desk Associate Relationship Specialty Start Date End Date Vanda Guerrero MD PCP - General Internal Medicine 04/08/15 01/08/19 [address] [facility] [place] [id number] Vanda Guerrero MD PCP - Assigned PCP 07/24/16 06/15/18 [address] [facility] [place] [id number] documented as of this encounter
--- OUTSIDE RECORDS SUMMARY | 2022-01-17 22:10 | XMS_ITS | Encounter Summary ---
:1965 Author Organization [place] Address [facility] [place] [address] Care Team Providers Name Role Phone Vanda Guerrero MD Primary Care Provider [phone] Vanda Guerrero MD Unavailable Reason for Visit Diagnostic Imaging XR - Closed Specialty Diagnoses / Procedures Referred By Contact Refer red To Contact Diagnoses Cervical facet joint syndrome Jmi Wang, Procedures XR Cervical/Thoracic Epidural Inj [address] [place] [address] Referral ID Status Reason Start Date Expiration Date Visits Requ ested Visits Authorized [id number] Closed 07/09/2017 07/09/2018 1 1 Encounter Details Date Type Department Care Team Description 07/10/2017 Radiant Appointment [facility] Wang vical facet Clinic [place] Jim joint synd shola Pain Management MD [place] [address] [address] [employer] [address] [place] [address] [place] [phone] (Work) [phone] Social History Tobacco Use Types Packs/Day Years [...] How often do you attend confucianism or mandaeism Patient refused 08/08/2019 services? Do you belong to any clubs or organizations such as No 08/08/2019 confucianism groups, [employer], fraternal or athletic groups, or school groups? [...] Priority Date/Time Associated Diagnosis Comme nts XR Routine 07/10/2017 10:17 AM Cervical facet joint Results for this CERVICAL/THORACIC NURSE ADMINISTRATOR syndrome procedure are in EPIDURAL INJ INCL the result s IMAGING section. documented in this encounter Results XR Cervical/Thoracic Epidural Inj (07/10/2017 10:17 AM NURSE ADMINISTRATOR) Specimen (Source) Anatomical Location Collection Method / Collectio n Time Received Time / Laterality Volume Narrative Rosangela Posada - 07/10/2017 10:43 AM NURSE ADMINISTRATOR This exam was marked as non-reportable because it will not be read by a radiologist or a [place] non-radiologis t provider. Jim Wang MD IMG DIAGNOSTIC IMAGING ORD ERABLES documented in this encounter Visit Diagnoses Diagnosis Cervical facet joint syndrome Other symptoms referable to back documented in this encounter Administered Medications Inactive Administered Medications - up to 3 most recent administrations Medication Order MAR Action Action Date Dose Rate Site iohexol (OMNIPAQUE) 300 mg/mL Given by Other 07/10/2017 10:42 AM NURSE ADMINISTRATOR 1 mL injection 10 mL 10 mL, EPIDURAL, ONCE, On 07/10/17 at 1030, For 1 dose documented in this encounter Additional Health Concerns Assessment Noted Time PHQ-9 Depression Total Score: 12 06/12/2017 1:02 PM CS T documented as of this encounter Care Teams Traffic Engineering Director Relationship Specialty Start Date End Date Vanda Guerrero MD PCP - General Internal Medicine 04/08/15 01/08/[address] [place] [address] [place] [address] Vanda Guerrero MD PCP - Assigned PCP 07/24/16 06/15/[address] [place] [address] [place] [id number] documented as of this encounter
--- OUTSIDE RECORDS SUMMARY | 2022-01-17 22:10 | XMS_ITS | Encounter Summary ---
:1965 Author Organization [place] Address [address] [place] [address] Care Team Providers Name Role Phone Vanda Guerrero MD Primary Care Provider [phone] Vanda Guerrero MD Unavailable Reason for Visit Reason Comments Medication Refill [facility] 24 HOUR 10- 240 MG per 24 hr tablet Encounter Details Date Type Department Care Team Description 08/01/2017 Refill [facility] Vanda Guerrero M edication Refill ([facility] [place] LORATADINE-D 24 HOUR [address] [place] [address] [facility] 10-24 0 MG per 24 hr [facility] tablet) [address] [place] [address] [place] [id number] [phone] Social History Tobacco Use Types Packs/Day Years [...] How often do you attend confucianist or christianity Patient refused 08/08/2019 services? Do [...] Notes Telephone Encounter - Lori Weber - 08/06/2017 3:54 PM WOOD SETTER Faxed RX to patients pharmacy. Lori Weber MA SETTER Telephone Encounter - Vanda Guerrero MD - 08/06/2017 2:15 PM WOOD SETTER Script printed, signed, and in station out basket. R SETTER Telephone Encounter - Kirsten Casillas RN - 08/06/2017 1:44 PM CST Routing refill request to provider for review/approval because: Drug not on the [facility] [place] Kirsten Casillas, checkroom chief Nurse SETTER Telephone Encounter - Marisa Matthew - 08/01/2017 1:28 PM CST [facility] 24 HOUR 10-240 MG per 24 hr tablet Last Written Prescription Date: Last Fill Quantity: 90, # refills: 1 Last Office Visit: 06/12/2017 Future Office visit: Routing refill request to provider for review/approval because: Drug not on the [facility] or [facility] refill protocol or controlled substance SETTER documented in this encounter Plan of Treatment Not on filedocumented as of this encounter Visit Diagnoses Diagnosis Chronic seasonal allergic rhinitis, unsp ecified trigger documented in this encounter Additional Health Concerns Assessment Noted Time PHQ-9 Depression Total Score: 12 06/12/2017 1:02 PM CS T documented as of this encounter Care Teams Photo Producer Relationship Specialty Start Date End Date Vanda Guerrero MD PCP - General Internal Medicine 04/08/15 01/08/[address] [place] [address] [place] [id number] Vanda Guerrero MD PCP - Assigned PCP 07/24/16 06/15/[address] [place] [address] [place] [id number] documented as of this encounter
--- OUTSIDE RECORDS SUMMARY | 2022-01-17 22:10 | XMS_ITS | Encounter Summary ---
:1965 Author Organization [facility] Address [address] [place] [address] Care Team Providers Name Role Phone Vanda Guerrero MD Primary Care Provider [phone] Vanda Guerrero MD Unavailable Reason for Visit Reason Onset Date Comments Refill Request 12/04/2017 metFORMIN (GLUCOPHAG E) 500 MG tablet Encounter Details Date Type Department Care Team Description 12/04/2017 Refill [facility] Vanda Guerrero R efill Request Clinic Pino SALDANA (metFORMIN (GLUCOPHAGE) [address] [place] [address]305 [facility] 500 M G tablet) [facility] [place] [address] [place] [address] [place] [address] [phone] Social History Tobacco Use Types Packs/Day Years [...] How often do you attend yazdanism or temple Patient refused 08/08/2019 services? Do you belong [...] this encounter Miscellaneous Notes Telephone Encounter - Rossana Peres - 12/04/2017 9:05 PM CDT Requested Prescriptions Pending Prescriptions Disp Refills ??? metFORMIN (GLUCOPHAGE) 500 MG tablet Last Written Prescription Date: 06/15/2017 Last Fill Quantity: 180 tablet, # refills: 1 Last office visit: 06/12/2017 with prescribing provider: Vanda Guerrero Future Office Visit: 180 tablet 1 Sig: Take 1 tablet (500 mg) by mouth 2 times daily (with meals) Biguanide Agents Passed 12/04/2017 7:39 PM Passed - Blood pressure less than 140/90 in past 6 months BP Readings from Last 3 Encounters: 07/10/17 118/72 06/27/17 124/77 06/12/17 116/72 Passed - Patient has documented LDL within the past 12 mos. Recent Labs Lab Test 02/17/17 0913 LDL 111* Passed - Patient has had a Microalbumin in the past 12 mos. Recent Labs Lab Test 09/25/16 1430 MICROL 8 UMALCR 5.96 Passed - Patient is age 10 or older Passed - Patient has documented A1c within the specified period of time. If HgbA1C is 8 or greater, it needs to be on file within the past 3 months. If less than 8, must beon file within the past 6 months. Recent Labs Lab Test 06/12/17 1255 A1C 6.7* Passed - Patient's CR is NOT>1.4 OR Patient's EGFR is NOT<45 within past 12 mos. Recent Labs Lab Test 06/12/17 1255 GFRESTIMATED 87 GFRESTBLACK >90 Recent Labs Lab Test 06/12/17 1255 CR 0.70 Passed - Patient does NOT have a [...] & Orders section of the refill encounter. Telephone Encounter - Rossana Peres - 12/04/2017 7:38 PM CDT Pt. Requests new Rx, new pharmacy location at [address] [address] documented in this encounter Plan of Treatment Not on filedocumented as of this encounter Visit Diagnoses Diagnosis Type 2 diabetes mellitus without complic ation, without long-term current use of insulin (H) documented in this encounter Additional Health Concerns Assessment Noted Time PHQ-9 Depression Total Score: 12 06/12/2017 1:02 PM CS T documented as of this encounter Care Teams Fashion Marketer Relationship Specialty Start Date End Date Vanda Guerrero MD PCP - General Internal Medicine 04/08/15 01/08/[address] [facility] [place] [address] Vanda Guerrero MD PCP - Assigned PCP 07/24/16 06/15/[address] [facility] [place] [address] documented as of this encounter
--- OUTSIDE RECORDS SUMMARY | 2022-01-17 22:10 | XMS_ITS | Encounter Summary ---
:1965 Author Organization [facility] Address [address] [place] [address] Care Team Providers Name Role Phone Vanda Guerrero MD Primary Care Provider [phone] Vanda Guerrero MD Unavailable Reason for Visit Reason Comments Medication Refill omeprazole (PRILOSEC) 20 MG capsule Encounter Details Date Type Department Care Team Description 05/04/2017 Refill [facility] Vanda Guerrero M edication Refill Clinic Pino SALDANA (omeprazole (PRILOSEC) [address] [place] [address]305 [facility] 20 MG capsule) [facility] [address] [place] [address] [place] [address] [phone] Social History Tobacco Use Types Packs/Day Years [...] How often do you attend advent or church Patient refused 08/08/2019 services? Do [...] Telephone Encounter - Kirsten Casillas RN - 05/07/2017 11:55 AM CST PA has been approved through 10/2019. Refills sent. Kirsten Casillas, two way radio installer Nurse TERIA ASSISTANT Telephone Encounter - Marisa Matthew - 05/04/2017 8:18 AM CST [place] 09/25/2016 TERIA ASSISTANT documented in this encounter Plan of Treatment Not on filedocumented as of this encounter Visit Diagnoses Diagnosis Gastroesophageal reflux disease without esophagitis Esophageal reflux documented in this encounter Additional Health Concerns Assessment Noted Time PHQ-9 Depression Total Score: 9 10/12/2016 7:16 AM CDT documented as of this encounter Care Teams Boom Stick Man Relationship Specialty Start Date End Date Vanda Guerrero MD PCP - General Internal Medicine 04/08/15 01/08/[address] [place] [address] [place] [id number] Vanda Guerrero MD PCP - Assigned PCP 07/24/16 06/15/[address] [place] [address] [place] [id number] documented as of this encounter
--- OUTSIDE RECORDS SUMMARY | 2022-01-17 22:10 | XMS_ITS | Encounter Summary ---
:1965 Author Organization [facility] Address [address] [place] [address] Care Team Providers Name Role Phone Vanda Guerrero MD Primary Care Provider [phone] Vanda Guerrero MD Unavailable Reason for Visit Reason Comments Medication Refill simvastatin (ZOCOR) 20 MG ta blet Encounter Details Date Type Department Care Team Description 05/15/2017 Refill [facility] Vanda Guerrero M edication Refill Clinic Pino SALDANA (simvastatin (ZOCOR) 20 [address] [place] [address]305 [facility] MG ta blet) [facility] [address] [place] [address] [place] [address] [phone] Social History Tobacco Use Types Packs/Day Years [...] 08/08/2019 relatives? How often do you attend orthodoxy or jainism Patient refused 08/08/2019 services? Do you belong to any clubs or organizations such as No 08/08/2019 orthodoxy groups, unions, fraternal or athletic groups, or [...] this encounter Miscellaneous Notes Telephone Encounter - Gayathri Mcallister RN - 05/16/2017 11:16 AM MITTEN STITCHER Patient is due for a diabetic appointment. Routing refill request to provider for review/approval because: Labs out of range: LDL not at goal Gayathri Mcallister RN Message handled by Nurse Triage. EN STITCHER Telephone Encounter - Marisa Matthew - 05/15/2017 10:34 AM CST YOSELIN 09/25/2016 EN STITCHER documented in this encounter Plan of Treatment Not on filedocumented as of this encounter Visit Diagnoses Diagnosis Hyperlipidemia LDL goal <100 Other and unspecified hyperlipidemia documented in this encounter Additional Health Concerns Assessment Noted Time PHQ-9 Depression Total Score: 9 10/12/2016 7:16 AM CDT documented as of this encounter Care Teams Event Planner Relationship Specialty Start Date End Date Vanad Guerrero MD PCP - General Internal Medicine 04/08/15 01/08/19 [address] [facility] [place] [id number] Vanda Guerrero MD PCP - Assigned PCP 07/24/16 06/15/18 [address] [facility] [place] [id number] documented as of this encounter
--- OUTSIDE RECORDS SUMMARY | 2022-01-17 22:10 | XMS_ITS | Encounter Summary ---
:1965 Author Organization [facility] Address [address] [place] [address] Care Team Providers Name Role Phone Vanda Guerrero MD Primary Care Provider [phone] Vanda Guerrero MD Unavailable Reason for Visit Reason Onset Date Comments Patient Request for Note/Letter 12/19/2017 Encounter Details Date Type Department Care Team Description 12/19/2017 Telephone [facility] Vanda Guerrero Patient Request for Clinic Pino Toribio MD Note/Letter [address] [place] [address]305 [facility] [address] [place] [address] [place] [address] [phone] Social History Tobacco Use Types Packs/Day Years [...] 08/08/2019 relatives? How often do you attend jew or yazidism Patient refused 08/08/2019 services? Do you belong to any clubs or organizations such as No 08/08/2019 jew groups, unions, fraternal or athletic groups, or [...] this encounter Miscellaneous Notes Telephone Encounter - Mignon Patterson MA - 12/19/2017 3:46 PM CDT Called pt and informed letter has been printed and signed provider. Pt will pickup at front end developer designer downstairs. Telephone Encounter - Vanda Guerrero MD - 12/19/2017 3:04 PM CDT Letter printed, signed, and in station out basket or on MA/CONFECTIONERY MAKER/RN desk Telephone Encounter - Lori Weber - 12/19/2017 2:44 PM CDT Routing to provider for review. Lori Weber MA Telephone Encounter - Radha Acevedo - 12/19/2017 1:50 PM CDT Reason for Call: Other Need Dr. Guerrero to write a letter about 50 lbs weight restriction that applies to patient due to a new job she is starting on Sunday. Needs the letter ALLEN. (Company is [employer]) Detailed comments: Megan will tile picker when the letter is ready. Call her at below number when letter is ready. Phone Number Patient can be reached at: [phone] Best Time: Anytime Can we leave a detailed message on this number? YES Call taken on 12/19/2017 at 1:51 PM by Radha Acevedo documented in this encounter Plan of Treatment Not on filedocumented as of this encounter Visit Diagnoses Not on filedocumented in this encounter Additional Health Concerns Assessment Noted Time PHQ-9 Depression Total Score: 12 06/12/2017 1:02 PM CS T documented as of this encounter Care Teams Senior Mechanical Project Engineer Relationship Specialty Start Date End Date Vanda Guerrero MD PCP - General Internal Medicine 04/08/15 01/08/[address] [place] [address] [place] [id number] Vanda Guerrero MD PCP - Assigned PCP 07/24/16 06/15/[address] [place] [address] [place] [id number] documented as of this encounter
--- OUTSIDE RECORDS SUMMARY | 2022-01-17 22:10 | XMS_ITS | Encounter Summary ---
:1965 Author Organization [facility] Address [address] [place] [address] Care Team Providers Name Role Phone Vanda Guerrero MD Primary Care Provider [phone] Vanda Guerrero MD Unavailable Reason for Referral Diagnostic Imaging Ultrasound - Closed Specialty Diagnoses / Procedures Referred By Contact Refer red To Contact Radiology. Diagnoses Alkaline phosphatase elevation Vanda Guerrero MD Ultrasound Rscc Procedures US Abdomen Limited [address] [facility] [address] [place] [address] [address] [address] Phone: Fax: Referral ID Status Reason Start Date Expiration Date Visits Requ ested Visits Authorized [id number] Closed 06/15/2017 06/15/2018 1 1 LD [facility] Reason for Visit Diagnostic Imaging Ultrasound - Closed Specialty Diagnoses / Procedures Referred By Contact Refer red To Contact Radiology. Diagnoses Alkaline phosphatase elevation Vanda Guerrero MD Ultrasound Rscc Procedures US Abdomen Limited [address] [place] [address] [facility] [address] [address] Phone: Fax: Referral ID Status Reason Start Date Expiration Date Visits Requ ested Visits Authorized [id number] Closed 06/15/2017 06/15/2018 1 1 Encounter Details Date Type Department Care Team Description 06/21/2017 Hospital Encounter [facility] Toribio MD [facility] Imaging [address] [facility] [address] [facility] [address] [place] [address] [place], [place] [phone] [address] (Work) [phone] Social History Tobacco Use Types Packs/Day Years [...] 08/08/2019 relatives? How often do you attend christianity or mormon Patient refused 08/08/2019 services? Do you belong to any clubs or organizations such as No 08/08/2019 christianity groups, unions, fraternal or athletic groups, or [...] on file documented as of this encounter Medications at [...] 2 diabetes, HbA1c goal < 7% (H) IBUPROFEN [...] capsule 8 capsule 0 017 01/02/2019 D3) 550[address] UNITS (50,000 Units) by capsuleIndications: mouth once a week Vitamin D deficiency citalopram (CELEXA) 20 Take 1.5 tablets 135 tablet 3 018 02/15/2018 MG tabletIndications: (30 mg) by mouth Anxiety, Moderate daily episode of recurrent major depressive disorder (H), Fibromyalgia [facility] LORATADINE-D 24 HOUR TAKE 1 TABLET BY 90 tablet 1 02/0508/01/2017 10-240 MG per 24 hr MOUTH EVERY DAY tabletIndications: Chronic seasonal allergic rhinitis, unspecified trigger DULoxetine (CYMBALTA) 30 TAKE 1 CAPSULE (30 180 capsule 3 04/09/2018 MG EC MG) BY MOUTH 2 capsuleIndications: TIMES DAILY Fibromyalgia estradiol (ESTRACE) 0.[address] 2 g vaginally 42.5 g 11 04/09/2018 MG/GM vaginal each night for 2 creamIndications: weeks, then use Symptomatic menopausal three times weekly or female climacteric states fluticasone (FLONASE) 50 [place] 1-2 sprays 3 Bottle 3 06/1208/07/2019 MCG/ACT into both nostrils sprayIndications: daily Dysfunction of Eustachian tube, bilateral loratadine (CLARITIN) 10 Take 10 mg by mouth 0 04/09/2018 MG tablet daily metFORMIN (GLUCOPHAGE) Take 1 tablet (500 180 tablet 1 06/1512/04/2017 500 MG mg) by mouth 2 tabletIndications: Type times daily (with 2 diabetes mellitus meals) without complication, without long-term current use of insulin (H) methocarbamol (ROBAXIN) Take 1-2 tablets 90 tablet 5 201702/15/2018 500 MG (500-1,000 mg) by tabletIndications: mouth 3 times daily Muscle spasm as needed for muscle spasms multivitamin, Take 1 tablet by 0 10/13 therapeutic with mouth daily minerals (MULTI-VITAMIN) TABS omeprazole (PRILOSEC) 20 TAKE 2 CAPSULES (40 180 capsule 1 1 07/07/2016 10/31/2017 MG CR MG) BY MOUTH DAILY capsuleIndications: -DOSE INCREASE Gastroesophageal reflux disease without esophagitis order for Please dispense up 3 Device 0 12/19/20162017 DMEIndications: Left to 3 pairs of knee foot pain, Acute left high compression ankle pain, Type 2 stockings at 20-30 diabetes mellitus mmHg. without complication, without long-term current use of insulin (H), Edema of left lower extremity order for Equipment being 1 Device 0 05/22/2016 8 DMEIndications: Peroneal ordered:knee tendon tear, left, roller. Will need subsequent encounter, for 3 months Post-operative state order for Equipment being 2 Device 0 04/04/2016 8 DMEIndications: Pain in ordered: ankle both feet, Peroneal braces tendinitis of left lower extremity, Peroneal tendinitis of right lower extremity, Pes cavus, congenital, Venous insufficiency of both lower extremities, Fibromyalgia, Type 2 diabetes mellitus without complication, without long-term current use of insulin (H), Non morbid obesity, unspecified obesity type simvastatin (ZOCOR) 20 TAKE 1 TABLET (20 90 tablet 1 201612/21/2017 MG tabletIndications: MG) BY MOUTH AT Hyperlipidemia LDL goal BEDTIME <100 SUMAtriptan (IMITREX) 25 Take 1-2 tablets 18 tablet 3 03/2607/13/2017 MG tabletIndications: (25-50 mg) by mouth Migraine without status at onset of migrainosus, not headache for intractable, unspecified migraine May repeat migraine type in 2 hours. Max 8 tablets/24 hours. topiramate (TOPAMAX) 50 Take 1 tablet (50 180 tablet 3 12/1502/15/2018 MG tabletIndications: mg) by mouth 2 Fibromyalgia, Non morbid times daily obesity, unspecified obesity type zolpidem (AMBIEN) 5 MG Take 1 tablet (5 30 tablet 5 018 02/20/2018 tabletIndications: mg) by mouth Persistent insomnia nightly as needed for sleep documented as of this encounter Plan of Treatment Not on filedocumented as of this encounter Procedures Procedure Name Priority Date/Time Associated Diagnosis Comme nts US ABDOMEN LIMITED Routine 06/21/2017 10:11 AM Alkaline phosph atase Results for this MRI CT TECH elevation procedure are i n the results section. documented in this encounter Results US Abdomen Limited (06/21/2017 10:[address] TECH) Anatomical Region Laterality Modality Abdomen/Pelvis Ultrasound Specimen (Source) Anatomical Location Collection Method / Collectio n Time Received Time / Laterality Volume Impressions 06/21/2017 10:[address] TECH IMPRESSION: ??Fatty infiltration of the liver. No gallstones or bile duct dilatation. DWIGHT LOZA MD Narrative 06/21/2017 10:[address] TECH ULTRASOUND ABDOMEN LIMITED 06/21/2017 10:11 AM HISTORY: Increasing alkaline phosphatase . Alkaline phosphatase elevation. FINDINGS: ??Liver is increased in echoge nicity without focal lesions. Area of focal fatty sparing near the gal lbladder fossa. The gallbladder is normal without stones or sludge. Common bile duct is normal in diameter. Pancreas is normal w here visualized. Examination of the right kidney is unremarkable. Procedure Note Dwight Loza MD - 06/21/2017Form atting of this note might be different from the original. ULTRASOUND ABDOMEN LIMITED 06/21/2017 10: 11 AM HISTORY: Increasing alkaline phosphatase . Alkaline phosphatase elevation. FINDINGS: Liver is increased in echogeni city without focal lesions. Area of focal fatty sparing near the gal lbladder fossa. The gallbladder is normal without stones or sludge. Common bile duct is normal in diameter. Pancreas is normal w here visualized. Examination of the right kidney is unremarkable. IMPRESSION: Fatty infiltration of the li dimple. No gallstones or bile duct dilatation. DWIGHT LOZA MD Vanda Guerrero MD IMG US ORDERABLES documented in this encounter Visit Diagnoses Diagnosis Alkaline phosphatase elevation Other nonspecific abnormal serum enzyme levels documented in this encounter Additional Health Concerns Assessment Noted Time PHQ-9 Depression Total Score: 12 06/12/2017 1:02 PM CS T documented as of this encounter Care Teams Counseling Aide Relationship Specialty Start Date End Date Vanda Guerrero MD PCP - General Internal Medicine 04/08/15 01/08/[address] [place] [address] [place] [address] Vanda Guerrero MD PCP - Assigned PCP 07/24/16 06/15/[address] [place] [address] [place] [address] documented as of this encounter
--- OUTSIDE RECORDS SUMMARY | 2022-01-17 22:10 | XMS_ITS | Encounter Summary ---
:1965 Author Organization [facility] Address [address] [place] [address] Care Team Providers Name Role Phone Vanda Guerrero MD Primary Care Provider [phone] Vanda Guerrero MD Unavailable Reason for Visit Reason Comments Medication Refill metFORMIN (GLUCOPHAGE) 500 M G tablet Encounter Details Date Type Department Care Team Description 12/08/2017 Refill [facility] Vanda Guerrero M edication Refill Clinic Pino SALDANA (metFORMIN (GLUCOPHAGE) [address] [place] 3305 [facility] 500 M G tablet) [facility] [address] [place] [address] [place] [address] [phone] Social History Tobacco Use Types Packs/Day Years [...] How often do you attend spiritism or anabaptist Patient refused 08/08/2019 services? Do you belong [...] Telephone Encounter - Radha Manning RN - 12/11/2017 4:26 PM CDT Medication is being filled for 1 time refill only due to: Needs 6 month diabetes check Radha Manning RN -- [facility] Telephone Encounter - Kartik Javier - 12/08/2017 8:53 AM CDT Requested Prescriptions Pending Prescriptions Disp Refills ??? metFORMIN (GLUCOPHAGE) 500 MG tablet [Pharmacy Med Name: METFORMIN HCL 500 MG TABLET] Last Written Prescription Date: 12/05/2017 Last Fill Quantity: 180 tablet, # refills: 1 Last office visit: 06/12/2017 with prescribing provider: Vanda Guerrero MD Future Office Visit: 180 tablet 1 Sig: TAKE 1 TABLET (500 MG) BY MOUTH 2 TIMES DAILY (WITH MEALS) Biguanide Agents Passed 12/08/2017 1:24 AM Passed - Blood pressure less than [...] documented as of this encounter Care Teams Apprentice Plumber Relationship Specialty Start Date End Date Vanda Guerrero MD PCP - General Internal Medicine 04/08/15 01/08/19 [address] [facility] [place] [address] Vanda Guerrero MD PCP - Assigned PCP 07/24/16 06/15/18 [address] [facility] [place] [address] documented as of this encounter
--- OUTSIDE RECORDS SUMMARY | 2022-01-17 22:10 | XMS_ITS | Encounter Summary ---
:1965 Author Organization [facility] Address [address] [place] [address] Care Team Providers Name Role Phone Vanda Guerrero MD Primary Care Provider [phone] Vanda Guerrero MD Unavailable Reason for Referral - Closed Specialty Diagnoses / Procedures Referred By Contact Refer red To Contact Diagnoses Cervical facet joint syndrome Rosalia Main, SEAN PATIENT SUPPORT TECH [facility] [address] [place] [address] [place] [address] Referral ID Status Reason Start Date Expiration Date Visits Requ ested Visits Authorized [id number] Closed 06/29/2017 06/29/2018 1 1 ME TANNER Reason for Visit Reason Onset Date Comments Results 06/29/2017 Encounter Details Date Type Department Care Team Description 06/29/[address] [facility] Neurosurgery Angella Main, Results [facility] WAREHOUSE FREIGHT HANDLER PATIENT SUPPORT TECH [address] [facility] [address] [place] [address] [address] [place], [place] [address] (Wo rk) Social History Tobacco Use Types [...] How often do you attend amish or hoahaoism Patient refused 08/08/2019 services? Do you belong [...] this encounter Miscellaneous Notes Telephone Encounter - Rosalia Main APRN CNP - 06/29/2017 2:11 PM CHROME TANNER Pt contacted with MRI results. Fusion solid. She was very concerned about her C1-2 and was told years ago there was something wrong. Her C1-2 per MRI is normal. She does have facet degeneration on the right. Recc. Injections and PT. She is open to this. Rosalia Main PATIENT SUPPORT TECH [facility] [address] [place] [address]. [address] Tel. [phone] ME TANNER documented in this encounter Plan of Treatment Scheduled Referrals Name Type Priority Associated Diagnoses Order S chedule PAIN MANAGEMENT REFERRAL Referral Routine Cervical facet j oint Ordered: 06/29/2017 syndrome documented as of this encounter Visit Diagnoses Diagnosis Cervical facet joint syndrome - Primary Other symptoms referable to back documented in this encounter Additional Health Concerns Assessment Noted Time PHQ-9 Depression Total Score: 12 06/12/2017 1:02 PM CS T documented as of this encounter Care Teams V[employer] Relationship Specialty Start Date End Date Vanda Guerrero MD PCP - General Internal Medicine 04/08/15 01/08/[address] [place] [address] [place] [address] Vanda Guerrero MD PCP - Assigned PCP 07/24/16 06/15/[address] [place] [address] [place] [id number] documented as of this encounter
--- OUTSIDE RECORDS SUMMARY | 2022-01-17 22:10 | XMS_ITS | Encounter Summary ---
:1965 Author Organization [place] Address [facility] [place] [address] Care Team Providers Name Role Phone Vanda Guerrero MD Primary Care Provider [phone] Vanda Guerrero MD Unavailable JeanaNoreen girard COKE HANDLING SUPERVISOR GLASS NOVELTY MAKER Unavailable [phone] JeanaNoreen girard COKE HANDLING SUPERVISOR GLASS NOVELTY MAKER Unavailable [phone] JeanaNoreen girard COKE HANDLING SUPERVISOR GLASS NOVELTY MAKER Primary Care Provider Kalyan Galvan Unavailable Unavailable Lashae Trevino [facility] Unavailable [phone] Eduardo Sharma MD Unavailable Rios Monteiro MD Unavailable Marcelo Artis-C Unavailable [phone] Rodrigo Man-C Unavailable Reason for Visit Reason Onset Date Comments Patient/info Update 07/18/2017 post C7-T1 interlami brown epidural steroid injection Encounter Details Date Type Department Care Team Description 07/18/2017 Telephone [facility] Jim Wang Patient/info Update Management Taylor Taylor MD (post C7-T1 [address] [facility] interlaminar epidural [address] [place] [address] steroid injection ) [place] [address] [phone] Social History Tobacco Use Types Packs/Day Years [...] 08/08/2019 relatives? How often do you attend roman catholic or baptism Patient refused 08/08/2019 services? Do you belong to any clubs or organizations such as No 08/08/2019 roman catholic groups, unions, fraternal or athletic groups, [...] this encounter Miscellaneous Notes Telephone Encounter - Todd Cervantes - 07/18/2017 4:26 PM CST Patient had a C7-T1 interlaminar epidural steroid injection on 07/10/17. Called patient for an update. Pt reported the following details: She had some improvement in her pain the day of the injection into the next day but says that currently she can't tell much of a difference from before the injection.Told patient that the information will be forwarded to her provider. Also explained that, if a steroid medication was used, it could take up to 14 days to feel the full effect and if pt has any furtherquestions or concerns pt should call the nurse line at [phone]. BENDING MACHINE OPERATOR documented in this encounter Plan of Treatment Not on filedocumented as of this encounter Visit Diagnoses Not on filedocumented in this encounter Additional Health Concerns Infection Onset Date Last Indicated Resolved Time Rule Out COVID-08/25/2020 08/25/2020 08/26/2020 3:2 3 PM CDT Assessment Noted Time PHQ-9 Depression Total Score: 12 06/12/2017 1:02 PM CS T documented as of this encounter Care Teams Psychology Professor Relationship Specialty Start Date End Date Vanda Guerrero, PCP - General Internal Medicine 04/08/15 [facility] [place] [address] Vanda Guerrero, PCP - Assigned PCP 07/24/16 06/15/18 MD Vargas [facility] [place] [address] [address] [place] PCP - Assigned PCP 06/16/18 08/13/18 SEAN Haley CNP [facility] [place] [address] [address] PCP - General Nurse Practitioner 01/09/19 12/12/21 SEAN Haley GLASS NOVELTY MAKER [address] [facility] [place] [address] [place] [place] Assigned PCP 06/16/18 SEAN Haley GLASS NOVELTY MAKER [address] [facility] [place] [address] Kalyan Galvan Personal Advocate & 08/08/19 Liaison (PAL) Lashae Trevino Pharmacist Pharmacist 10/14/19 12/01/[facility] [address] [place], [place] [id number] Eduardo Sharma MD Assigned Sleep Provider 04/02/20 05/07/21 [address] [place] [id number] Rios Monteiro MD Assigned Musculoskeletal 04/02/20 08/24/[address] Provider [address] [place], [place] [address] Marcelo Artis Assigned Musculoskeletal 08/25/20 08/20/21 MIKAYLA Nuno Provider [address] [place], [place] [address] Rodrigo Man Assigned Surgical 08/25/2011/27 MIKAYLA Lacy Provider [address] [place] [id number] documented as of this encounter
--- OUTSIDE RECORDS SUMMARY | 2022-01-17 22:10 | XMS_ITS | Encounter Summary ---
:1965 Author Organization [place] Address [facility] [place] [address] Care Team Providers Name Role Phone Vanda Guerrero MD Primary Care Provider [phone] Vanda Guerrero MD Unavailable Reason for Referral - Closed Specialty Diagnoses / Procedures Referred By Contact Refer red To Contact Diagnoses Cervical radiculopathy Jim Wang Procedures NO CHARGE ANDREEA Taylor MD [address] [place] [address] Referral ID Status Reason Start Date Expiration Date Visits Requ ested Visits Authorized [id number] Closed 07/10/2017 07/10/2018 1 1 LE FINANCIALS DEVELOPER Reason for Visit Reason Comments Pain - Closed Specialty Diagnoses / Procedures Referred By Contact Refer red To Contact Diagnoses Cervical facet joint syndrome Rosalia Main APRN RADIOLOGY TRANSPORTER [facility] [address] [place] [address] Referral ID Status Reason Start Date Expiration Date Visits Requ ested Visits Authorized [id number] Closed 06/29/2017 06/29/2018 1 1 Encounter Details Date Type Department Care Team Description 07/10/[address] [facility] Rosalia Main APRN RADIOLOGY TRANSPORTER [facility] [address] [place] [address] Cervical Injection Office Pain Management Jim Wang MD [address] [place], [place] [address] radiculopathy Visit [place] (Primary Dx) [address] [facility] [address] [place] [address] Social History Tobacco Use Types [...] How often do you attend sikhism or jain Patient refused 08/08/2019 services? Do you belong [...] Sign Reading Time Taken Comments Blood Pressure 118/72 07/10/2017 10:58 AM ORACLE FINANCIALS DEVELOPER Pulse 80 07/10/2017 10:58 AM ORACLE FINANCIALS DEVELOPER Temperature - - Respiratory Rate - - Oxygen Saturation 100% 07/10/2017 10:58 AM ORACLE FINANCIALS DEVELOPER Inhaled Oxygen Concentration - - Weight - - Height - - Body Mass Index - - documented in this encounter Patient Instructions Patient InstructionsSteeCara coley RN - 07/10/2017 10:15 AM CST [facility] Procedure Discharge Instructions Today you saw: Dr. Jim Wang Your procedure: Epidural steroid injection Medications used: Lidocaine (anesthetic) Bupivacaine (anesthetic) Dexamethasone (steroid), Normal Saline, Omnipaque (contrast) ??? Be cautious when walking as numbness and/or weakness in the legs may occur up to 6-8 hours afterthe procedure due to effect of the local anesthetic ??? Do not drive for 6 hours. The effect of the local anesthetic could slow your reflexes. ??? Avoid strenuous activity for the first 24 hours. You may resume your regular activities after that. ??? You may shower, however avoid swimming, tub baths or hot tubs for 24 hours following your procedure ??? You may have a mild to moderate increase in pain for several days following the injection. ??? You may use ice packs for 10-15 minutes, 3 to 4 times a day at the injection site for comfort ??? Do not use heat to painful areas for 6 to 8 hours. This will give the local anesthetic time to wear off and prevent you from accidentally burning your skin. ??? You may use anti-inflammatory medications (such as Ibuprofen/Advil or Aleve) or Tylenol for paincontrol if necessary ??? With diabetes, check your blood sugar more frequently than usual as your blood sugar may be higher than normal for 10-14 days following a steroid injection. Contact your doctor who manages your diabetes if your blood sugar is higher than usual ??? It may take up to 14 days for the steroid medication to start working although you may feel the effect as early as a few days after the procedure. ??? Follow up with your referring provider in 2-3 weeks ??? If you experience any of the following, call the pain center line during work hours at [phone] or on-call physician after hours at [phone]: -Fever over 100 degree F -Swelling, bleeding, redness, drainage, warmth at the injection site -Progressive weakness or numbness in your legs or arms -Loss of bowel or bladder function -Unusual headache that is not relieved by Tylenol or your regular headache medication -Unusual new onset of pain that is not improving Phone #s: Nurse triage line for general questions: [phone] LE FINANCIALS DEVELOPER documented in this encounter Progress Notes Jim Wang MD - 07/10/2017 10:15 AM CST [facility] - Procedure Note Date of Visit: 07/10/2017 Procedure performed: C7-T1 interlaminar epidural steroid injection with fluoroscopic guidance Diagnosis: Cervical spondylosis; Cervical radiculitis/radiculopathy Speech Therapist Technician: Jim Wang MD Anesthesia: none Indications: Megan Choi is a 52 year old female who is seen for cervical epidural steroid injection. The patient describes bilateral neck pain radiating to her bilat shoulder. The patient has been exhibiting symptoms consistent with cervical intraspinal inflammation and radiculopathy. Symptomshave been persistent, disabling, and intermittently severe. The patient reports minimal improvement with conservative treatment, including meds/pt. Cervical MRI C2-C3: Mild symmetric annular disc bulge. Central canal normal. ?? C3-C4: Degeneration of the disc. Mild diffuse annular disc bulge. More focal central disc osteophyte complex extending both to the right and left of midline leading to mild-moderate central stenosis and slight flattening of the cervical cord. The neural foramen are patent. ?? C4-C5: Degeneration of the disc. Mild diffuse annular disc bulge. Small central disc osteophyte complex causing mass effect on the dural sac and leading to mild central stenosis and mild flattening of the cord. Mild foraminal stenosis due to loss of disc space height. Moderate-severe degenerative change in the right facet joint. There is associated bone marrow edema in the adjacent articular processes. This is best seen on sagittal images 3 and 4 of series 3 and series 5. ?? C5-C6: Solid anterior fusion. Central canal adequate. Neural foramen appear patent. ?? C6-C7: Solid anterior fusion. Central canal and neural foramen are patent. ?? C7-T1: Mild annular disc bulge. Central canal and neural foramen are patent. ?? T1-T2: Normal disc, facet joints, spinal canal and neural foramina. ? IMPRESSION: 1. Anterior fusion at C5-C6 and [...] in the articular processes at this level. Allergies: Allergies Allergen Reactions ??? Erythromycin Rash Vitals: BP 118/72 Pulse 80 LMP 10/30/2011 SpO2 100% Review of Systems: The patient denies recent fever, chills, illness, use of antibiotics or anticoagulants. All other 10-point review of systems negative. Procedure: The procedure and risks were explained, and informed written consent was obtained from the patient. Risks include but are not limited to: infection, bleeding, increased pain, and damage to soft tissue, nerve, muscle, and vasculature structures. After getting informed consent, patient was brought into the procedure suite and was placed in a prone position on the procedure table. A Pause forthe Cause was performed. Patient was prepped and draped in sterile fashion. The C7-T1 interspace was identified with use of fluoroscopy in AP view. A 25- gauge, 1.5 inch needle was used to anesthetize the skin and subcutaneous tissue entry site with a total of 2 ml of 1% lidocaine. Under fluoroscopic visualization, a 22-gauge, 3.5 inch Tuohy epidural needle was slowly advanced towards the epidural space a few millimeters midline of midline. The latter part of the needle advancement was guided with fluoroscopy in the lateral view. The epidural space was identified using loss of resistance technique. After negative aspiration for heme and cerebrospinal fluid, a total of 1 mL of non-ionic contrast was injected to confirm needle placement. 9 mL of contrast was wasted. Epidurogram confirmed spread within the posterior epidural space. 2 ml of 10mg/ml of dexamethasone and 1 ml of preservative free 1% lidocaine was injected. The needle was removed. Images were saved to PACS. The patient tolerated the procedure well, and there was no evidence of procedural complications. No new sensory or motor deficits were noted following the procedure. The patient was stable and able to ambulate on discharge home. Post-procedure instructions were provided. Pre-procedure pain score: 8/10 in the neck Post-procedure pain score: 7/10 in the neck Assessment/Plan: Megan Choi is a 52 year old female s/p cervical interlaminar epidural steroid injection today for cervical spondylosis and radiculitis/radiculopathy. 1. Following today's procedure, the patient was advised to contact the [facility] for any of the following: Fever, chills, or night sweats New onset of pain, numbness, or weakness Any questions/concerns regarding the procedure If unable to contact the Pain Center, the patient was instructed to go to a local Emergency Room forany complications. 2. The patient will receive a follow-up call in 1 week. 3. Follow-up with ref provider in 2 weeks for post-procedure evaluation. Jim WangMD Pain Management LE FINANCIALS DEVELOPER documented in this encounter Nursing Notes Sandy Fernandes LPN - 07/10/2017 10:15 AM CST Pre-procedure Intake Have you been fasting? Yes ?? If yes, for how long? 6 days Are you taking a prescribed blood thinner such as coumadin, Plavix, Xarelto? No ?? If yes, when did you take your last dose? Do you take aspirin? No ?? If cervical procedure, have you held aspirin for 6 days? Yes Do you have any allergies to contrast dye, iodine, steroid and/or numbing medications? NO Are you currently taking antibiotics or have an active infection? NO Have you had a fever/elevated temperature within the past week? NO Are you currently taking oral steroids? NO Do you have a moving van driver? Yes Are you or ? NO Are the vital signs normal? Yes LE FINANCIALS DEVELOPER Cara Mcnulty RN - 07/10/2017 10:15 AM CST 22 gauge Peripheral IV inserted into left anticubital - attempts: 1 Cara MORALES-RN Diet Supervisor [facility] LE FINANCIALS DEVELOPER Cara Mcnulty RN - 07/10/2017 10:15 AM CST Discharge Information IV Discontiued Time: 1058 Amount of Fluid Infused: NA Discharge Criteria = When patient returns to baseline or as per MD order Consciousness: Pt is fully awake Circulation: BP +/- 20% of pre-procedure level Respiration: Patient is able to breathe deeply O2 Sat: Patient is able to maintain O2 Sat >92% on room air Activity: Moves 4 extremities on command Ambulation: Patient is able to stand and walk or stand and pivot into wheelchair Dressing: Clean/dry or No Dressing Notes: Discharge instructions and AVS given to patient Patient meets criteria for discharge? YES Admitted to PCU? No Responsible adult present to accompany patient home? Yes Signature/Title: Cara Mcnulty RN Diet Supervisor [facility] LE FINANCIALS DEVELOPER documented in this encounter Plan of Treatment Not on filedocumented as of this encounter Visit Diagnoses Diagnosis Cervical radiculopathy - Primary Brachial neuritis or radiculitis nos documented in this encounter Additional Health Concerns Assessment Noted Time PHQ-9 Depression Total Score: 12 06/12/2017 1:02 PM CS T documented as of this encounter Care Teams Manager Cash Relationship Specialty Start Date End Date Vanda Guerrero MD PCP - General Internal Medicine 04/08/15 01/08/19 [address] [facility] [place] [phone] Vanda Guerrero MD PCP - Assigned PCP 07/24/16 06/15/18 [address] [facility] [place] [id number] documented as of this encounter
--- OUTSIDE RECORDS SUMMARY | 2022-01-17 22:10 | XMS_ITS | Encounter Summary ---
:1965 Author Organization [place] Address [address] [place] [address] Care Team Providers Name Role Phone Vanda Guerrero MD Primary Care Provider [phone] Vanda Guerrero MD Unavailable Reason for Visit Reason Comments Medication Refill omeprazole (PRILOSEC) 20 MG CR capsule Encounter Details Date Type Department Care Team Description 10/31/2017 Refill [facility] Vanda Guerrero M edication Refill Clinic Pino SALDANA (omeprazole (PRILOSEC) [address] [facility] 20 MG CR capsule) [facility] [address] [place] [address] [place] [address] [phone] Social History Tobacco Use Types Packs/Day Years [...] 08/08/2019 relatives? How often do you attend islam or tenriism Patient refused 08/08/2019 services? Do you belong to any clubs or organizations such as No 08/08/2019 islam groups, unions, fraternal or athletic groups, or [...] Telephone Encounter - Christi Roldan RN - 10/31/2017 9:08 AM CDT Prescription approved per [facility] Refill Protocol. Telephone Encounter - Marisa Matthew - 10/31/2017 8:09 AM CDT Requested Prescriptions Pending Prescriptions Disp Refills ??? omeprazole (PRILOSEC) 20 MG CR capsule [Pharmacy Med Name: OMEPRAZOLE DR 20 MG CAPSULE] Last Written Prescription Date: 05/07/2017 Last Fill Quantity: 90, # refills: 1 Last office visit: 06/12/2017 with prescribing provider: Vanda Guerrero Future Office Visit: 180 capsule 1 Sig: TAKE 2 CAPSULES (40 MG) BY MOUTH DAILY -DOSE INCREASE PPI Protocol Passed 10/31/2017 1:22 AM Passed - Not on Clopidogrel (unless [...] documented as of this encounter Care Teams Paperboard Box Maker Relationship Specialty Start Date End Date Vanda Guerrero MD PCP - General Internal Medicine 04/08/15 01/08/19 [address] [facility] [place] [address] Vanda Guerrero MD PCP - Assigned PCP 07/24/16 06/15/18 [address] [facility] [place] [address] documented as of this encounter
--- OUTSIDE RECORDS SUMMARY | 2022-01-17 22:10 | XMS_ITS | Encounter Summary ---
:1965 Author Organization [facility] Address [address] [place] [address] Care Team Providers Name Role Phone Vanda Guerrero MD Primary Care Provider [phone] Vanda Guerrero MD Unavailable Reason for Visit Reason Comments Medication Refill citalopram (CELEXA) 20 MG ta blet-DUPLICATE Encounter Details Date Type Department Care Team Description 06/27/2017 Refill [facility] Vanda Guerrero M edication Refill Clinic Pino SALDANA (citalopram (CELEXA) 20 [address] [place] [facility] MG ta blet-DUPLICATE) [facility] [address] [place] [address] [place] [phone] Social History Tobacco Use Types Packs/Day Years [...] How often do you attend alevism or mandaen Patient refused 08/08/2019 services? Do you belong to any clubs or organizations such as No 08/08/2019 alevism groups, unions, fraternal or athletic groups, or [...] Telephone Encounter - Kirsten Casillas RN - 06/28/2017 12:49 PM CST Sent back as duplicate. Kirsten Casillas, footwear sales leader Nurse ANICAL MAINTENANCE SUPERVISOR Telephone Encounter - Marisa Matthew - 06/27/2017 7:59 AM CST Duplicate. citalopram (CELEXA) 20 MG tablet was filled on 06/12/2017, qty 135 with 3 refills. ANICAL MAINTENANCE SUPERVISOR documented in this encounter Plan of Treatment Not on filedocumented as of this encounter Visit Diagnoses Diagnosis Anxiety Anxiety state, unspecified documented in this encounter Additional Health Concerns Assessment Noted Time PHQ-9 Depression Total Score: 12 06/12/2017 1:02 PM CS T documented as of this encounter Care Teams Carpet Sewer Relationship Specialty Start Date End Date Vanda Guerrero MD PCP - General Internal Medicine 04/08/15 01/08/19 [address] [facility] [address] [place], [place] [phone] Vanda Guerrero MD PCP - Assigned PCP 07/24/16 06/15/18 [address] [facility] [place] [id number] documented as of this encounter
--- OUTSIDE RECORDS SUMMARY | 2022-01-17 22:10 | XMS_ITS | Encounter Summary ---
:1965 Author Organization [place] Address [address] [place] [address] Care Team Providers Name Role Phone Vanda Guerrero MD Primary Care Provider [phone] Vanda Guerrero MD Unavailable Reason for Referral Diagnostic Imaging MRI - Closed Specialty Diagnoses / Procedures Referred By Contact Refer red To Contact Radiology. Diagnoses Rosalia Pagan APRN Mri Procedures MR Cervical Spine w/o Contrast CINDER SNAPPER [address] [facility] [place], [place] [address] [id number] [place] [address] Referral ID Status Reason Start Date Expiration Date Visits Requ ested Visits Authorized [id number] Closed 06/27/2017 06/27/2018 1 1 MERIZATION KETTLE OPERATOR Reason for Visit Diagnostic Imaging MRI - Closed Specialty Diagnoses / Procedures Referred By Contact Refer red To Contact Radiology. Diagnoses Rosalia Pagan APRN Mri Procedures MR Cervical Spine w/o Contrast CINDER SNAPPER [address] [place] [facility] [place], [place] [address] [address] [place] [address] Referral ID Status Reason Start Date Expiration Date Visits Requ ested Visits Authorized [id number] Closed 06/27/2017 06/27/2018 1 1 Encounter Details Date Type Department Care Team Description 06/28/[address] [facility] Angella Main, Cervicalgia Imaging DRYING TUNNEL OPERATOR CINDER SNAPPER [address] [facility] [place], [place] [address] [facility] [address] [place] [address] (Wo rk) Social History Tobacco Use Types [...] How often do you attend uatsdin or gnosticism Patient refused 08/08/2019 services? Do [...] capsule 8 capsule 0 017 01/02/2019 D3) 71496 UNITS (50,000 Units) by capsuleIndications: mouth once [...] or female climacteric states fluticasone (FLONASE) [address] [place] 1-2 sprays 3 Bottle 3 06/1208/07/2019 MCG/ACT [...] Priority Date/Time Associated Diagnosis Comme nts MR CERVICAL SPINE Routine 06/28/2017 1:36 PM Cervicalgia Resu lts for this W/O CONTRAST POLYMERIZATION KETTLE OPERATOR procedure are i n the results section. documented in this encounter Results MR Cervical Spine w/o Contrast (06/28/2017 1:36 PM POLYMERIZATION KETTLE OPERATOR) Anatomical Region Laterality Modality Spine, SUBRAD MR NEURO, UMP MR SPINE, RAD MR Magnetic Resonance Specimen (Source) Anatomical Location Collection Method / Collectio n Time Received Time / Laterality Volume Impressions 06/28/2017 2:37 PM POLYMERIZATION KETTLE OPERATOR IMPRESSION: ?? 1. Anterior fusion at C5-C6 [...] MILAGROS JC MD Narrative 06/28/2017 2:37 PM POLYMERIZATION KETTLE OPERATOR MRI CERVICAL SPINE WITHOUT CONTRAST June 28, [...] at this level. MILAGROS JC MD Rosalia Angeles Etelvina DRYING TUNNEL OPERATOR CINDER SNAPPER IMG MRI ORDERABLES documented in this encounter Visit Diagnoses Diagnosis Cervicalgia documented in this encounter Additional Health Concerns Assessment Noted Time PHQ-9 Depression Total Score: 12 06/12/2017 1:02 PM CS T documented as of this encounter Care Teams Fire Investigation Manager Relationship Specialty Start Date End Date Vanda Guerrero MD PCP - General Internal Medicine 04/08/15 01/08/19 [address] [facility] [place] [phone] Vanda Guerrero MD PCP - Assigned PCP 07/24/16 06/15/18 [address] [facility] [place] [phone] documented as of this encounter
--- OUTSIDE RECORDS SUMMARY | 2022-01-17 22:10 | XMS_ITS | Encounter Summary ---
:1965 Author Organization [place] Address [address] [place] [address] Care Team Providers Name Role Phone Vanda Guerrero MD Primary Care Provider [phone] Vanda Guerrero MD Unavailable Reason for Visit Reason Onset Date Comments Procedure 06/29/2017 cervical facets vs. FABIAN Encounter Details Date Type Department Care Team Description 06/29/2017 Telephone [facility] Pain Management Procedu re (cervical Pain Management Program, [place] facets vs. FABIAN) [address] [place] [address] Social History Tobacco Use Types [...] How often do you attend yazidi or mandaeism Patient refused 08/08/2019 services? Do you belong to any clubs or organizations such as [employer] 08/08/2019 yazidi groups, unions, fraternal or athletic [...] this encounter Miscellaneous Notes Telephone Encounter - Irene Guevara - 06/29/2017 4:07 PM CST Pre-screening Questions for Radiology Injections: Injection to be done at which interventional clinic site? [facility] Procedure ordered by Rosalia Main Procedure ordered? cervical facets vs. FABIAN What insurance would patient like us to bill for this procedure? BCBS ?? Worker's comp or MVA (motor vehicle accident) -Any injection DO NOT SCHEDULE and route to Halie Siddiqui. ?? [employer] insurance - For SI joint injections, DO NOT SCHEDULE and route Carly Espinoza ?? [employer]- MBB's must be scheduled at LEAST two weeks apart ?? [employer] - Any injection besides hip/shoulder/knee joint DO NOT SCHEDULE and route to Carly Fairbanks. She will obtain PA and call pt back to schedule procedure or notify pt of denial. ?? [employer]-PA REQUIRED FOR NON-TRACE OR Joint injections Any chance of ? NO If YES, do NOT schedule and route to icing machine operator Is an screen printer helper needed? No Patient has a drive home? (mandatory) YES: Is patient taking any blood thinners (plavix, coumadin, jantoven, warfarin, heparin, pradaxa or dabigatran )? No If hold needed, do NOT schedule, route to icing machine operator Is patient taking any aspirin products? Yes - Pt takes 81 mg daily; instructed to hold 6 day(s) prior to procedure. ?? If more than 325mg/day do NOT schedule; route to icing machine operator ?? For CERVICAL procedures, hold all aspirin products for 6 days. Does the patient have a bleeding or clotting disorder? No ?? If YES, okay to schedule AND route to RN nurse pool ?? For any patients with platelet count <100, must be forwarded to provider Is patient diabetic? Yes If YES, have them bring their glucometer. Does patient have an active infection or treated for one within the past week? No Is patient currently taking any antibiotics? No ?? For patients on chronic, preventative, or prophylactic antibiotics, procedures may be scheduled. ?? For patients on antibiotics for active or recent infection: ?? Holly Armenta Burton, Snitzer-antibiotic course must have been completed for [address] ?? [address]. Donnelly-antibiotic course must have been completed for 7 days Is patient currently taking any steroid medications? (i.e. Prednisone, Medrol) No ?? For patients on steroid medications: ?? Holly Armenta Burton, Snitzer-steroid course must have been completed for 4 days ?? -steroid course must have been completed for 7 days Reviewed with patient: If you are started on any steroids or antibiotics between now and your appointment, you must contact us because it may affect our ability to perform your procedure. Yes Is patient actively being treated for cancer or immunocompromised? No If YES, do NOT schedule and route to icing machine operator Are you able to get on and off an exam table with minimal or no assistance? Yes If NO, do NOT schedule and route to icing machine operator Are you able to roll over and lay on your stomach with minimal or no assistance? Yes If NO, do NOT schedule and route to icing machine operator Any allergies to contrast dye, iodine, shellfish, or numbing and steroid medications? No If YES, route to icing machine operator AND add allergy information to appointment notes Allergies: Erythromycin Has the patient had a flu shot or any other vaccinations within 7 days before or after the procedure. No Does patient have an MRI/CT? YES: (SI joint, hip injections, lumbar sympathetic blocks, and stellate ganglion blocks do not require anMRI) ?? Was the MRI done w/in the last 3 years? Yes ?? Was MRI done at [place]? Yes ?? If not, where was it done? N/A ?? If MRI was not done at [place], [facility] or [facility] do NOT schedule and route to nursing. Ifpt has an imaging disc, the injection may be scheduled but pt has to bring disc to appt. If they show up w/out disc the injection cannot be done Reminders (please tell patient if applicable): ?? Instructed pt to arrive 30 minutes early for IV start if this is for a cervical procedure, ALL sympathetic (stellate ganglion, hypogastric, or lumbar sympathetic block) and all sedation procedures (RFA, spinal cord stimulation trials). Informed -IVs are not routinely placed for Dr. Kuo cervical cases -Dr. Wang: IVs for cervical ESIs and cervical TBDs (not CMBBs/facet inj) ?? If NPO for sedation, informed patient that it is okay to take medications with sips of water (except if they are to hold blood thinners). YES: *DO take blood pressure medication if it is prescribed* ?? If this is for a cervical TRACE, informed patient that aspirin needs to be held for 6 days. YES: ?? For all patients not having spinal cord stimulator (SCS) trials or radiofrequency ablations (RFAs), informed patient: IV sedation is not provided for this procedure. If you feel that an oral anti- anxiety medication is needed, you can discuss this further with your referring provider or primary care provider. The Pain Clinic provider will discuss specifics of what the procedure includes at your appointment. Most procedures last 10-20 minutes. We use numbing medications to help with any discomfort during the procedure. NO ?? Do not schedule procedures requiring IV placement in the first appointment of the day or first appointment after lunch. ?? For patients 85 or older we recommend having an adult stay w/ them for the remainder of the day. Does the patient have any questions? RAJENDRA Guevara [facility] K LEATHER BUFFER documented in this encounter Plan of Treatment Not on filedocumented as of this encounter Visit Diagnoses Not on filedocumented in this encounter Additional Health Concerns Assessment Noted Time PHQ-9 Depression Total Score: 12 06/12/2017 1:02 PM CS T documented as of this encounter Care Teams Design Drafter Relationship Specialty Start Date End Date Vanda Guerrero MD PCP - General Internal Medicine 04/08/15 01/08/19 [address] [facility] [place] [address] Vanda Guerrero MD PCP - Assigned PCP 07/24/16 06/15/18 [address] [facility] [place] [address] documented as of this encounter
--- OUTSIDE RECORDS SUMMARY | 2022-01-17 22:11 | XMS_ITS | Encounter Summary ---
:1965 Author Organization [place] Address [address] [place] [address] Care Team Providers Name Role Phone Vanda Guerrero MD Primary Care Provider [phone] Vanda Guerrero MD Unavailable JeanaNoreen girard [employer] MAP MODELER CLINICAL ADMISSIONS MANAGER Unavailable [phone] JeanaNoreen girard [employer] CLINICAL ADMISSIONS MANAGER Unavailable [phone] JeanaNoreen girard [employer] CLINICAL ADMISSIONS MANAGER Primary Care Provider Kalyan Galvan Unavailable Unavailable Lashae Trevino [facility] Unavailable [phone] Eduardo Sharma MD Unavailable Rios Monteiro MD Unavailable Marcelo Artis-C Unavailable [phone] Rodrigo ManC Unavailable Reason for Visit Reason Comments Medication Refill simvastatin (ZOCOR) 20 MG ta blet Encounter Details Date Type Department Care Team Description 02/15/2017 Refill [facility] Vanda Guerrero M edication Refill Clinic Pino SALDANA (simvastatin (ZOCOR) 20 [address] [facility] MG ta blet) [facility] [address] [place] [address] [place] [address] [phone] Social History Tobacco Use Types Packs/Day Years [...] How often do you attend orthodoxy or yarsani Patient refused 08/08/2019 services? Do [...] Notes Telephone Encounter - Adali Pierson - 02/16/2017 12:38 PM CDT Called spoke to pt, scheduled for 02/17/17 lab only. Mil Allan Team Coodinator Telephone Encounter - Mimi Roberts RN - 02/15/2017 1:46 PM CDT Medication is being filled for 1 time refill only due to: Patient needs labs Fasting cholesterol overdue, future order placed. Call to schedule lab only appt. Kassie Roberts RN Telephone Encounter - Marisa Matthew - 02/15/2017 11:05 AM CDT simvastatin (ZOCOR) 20 MG tablet Last Written Prescription Date: 02/11/2016 Last Fill Quantity: 90, # refills: 3 Last Office Visit with [facility], [email or web address] or [facility] prescribing provider: 09/25/2016 Lab Results Component Value Date CHOL 152 12/03/2015 Lab Results Component Value Date HDL 51 12/03/2015 Lab Results Component Value Date LDL 79 12/03/2015 Lab Results Component Value Date TRIG 109 12/03/2015 Lab Results Component Value Date CHOLHDLRATIO 2.5 08/10/2014 documented in this encounter Plan of Treatment Not on filedocumented as of this encounter Results (ABNORMAL) Lipid panel reflex to direct LDL (02/17/2017 9:13 AM CDT) athologist Signature Cholesterol 178 <200 mg/dL 02/17/2017 [facility] 2:14 PM CDT [facility] Triglycerides 121 <150 mg/dL 02/17/2017 [facility] 2:14 PM T [facility] Comment: Fasting specimen HDL Cholesterol 43 (L) >49 mg/dL 02/17/2017 2:14 PM [facility] LDL Cholesterol 111 (H) <100 mg/dL 02/17/2017 2:14 PM [facility] Calculated CDT [facility] Comment: Above desirable: ??100-129 mg/dl Borderline High: ??130-159 mg/dL High: ? 160-189 mg/dL Very high: ? >189 mg/dl Non HDL Cholesterol 135 (H) <130 mg/dL 02/17/2017 2:[address] [facility] Comment: Above Desirable: ??130-159 mg/dl Borderline high: ??160-189 mg/dl High: ? 190-219 mg/dl Very high: ? >219 mg/dl Specimen Anatomical Collection Method Collection Time Receive d Time (Source) Location / / Volume Laterality Blood specimen 02/17/2017 9:13 AM 017 9:18 (specimen) CDT AM CDT Vanda Guerrero MD LAB - BLOOD ORDERABLES Performing Organization Address City/State/ZIP Code Phon e Number [facility] [address] [place] [address] documented in this encounter Visit Diagnoses Diagnosis Hyperlipidemia LDL goal <100 Other and unspecified hyperlipidemia documented in this encounter Additional Health Concerns Infection Onset Date Last Indicated Resolved Time Rule Out COVID-19 08/25/2020 08/25/2020 08/26/2020 3:2 3 PM CDT Assessment Noted Time PHQ-9 Depression Total Score: 9 10/12/2016 7:16 AM CDT documented as of this encounter Care Teams Cert Pharmacy Tech Relationship Specialty Start Date End Date Vanda Guerrero, PCP - General Internal Medicine 04/08/15 01/08/[address] [place] [place] [address] Vanda Guerrero, PCP - Assigned PCP 07/24/16 06/15/18 [address] [place] [place] [address] Noreen Hills PCP - Assigned PCP 06/16/18 08/13/18 SEAN Haley CLINICAL ADMISSIONS MANAGER [facility] [facility] [place] [address] Noreen Hills PCP - General Nurse Practitioner 01/09/19 12/12/21 SEAN Haley CLINICAL ADMISSIONS MANAGER [address] [facility] [address] [address] [place] [id number] Noreen Hills Assigned PCP 06/16/18 SEAN Haley CLINICAL ADMISSIONS MANAGER [address] [place] [address] [place] [id number] Kalayn Galvan Personal Advocate & 08/08/19 Liaison (PAL) Lashae Trevino Pharmacist Pharmacist 10/14/19 12/01/20 [facility] [address] [place], [place] [id number] Eduardo Sharma MD Assigned Sleep Provider 04/02/20 05/07/21 [address] [place] [address] Rios Mnoteiro MD Assigned Musculoskeletal 04/02/20 08/24/[address] [place], [place] [address] Marcelo Artis Assigned Musculoskeletal 08/25/20 08/20/21 MIKAYLA Nuno Provider [address] [place] [address] Rodrigo Man Assigned Surgical 08/25/2011/27 MIKAYLA Lacy Provider [address] [place] [address] documented as of this encounter
--- OUTSIDE RECORDS SUMMARY | 2022-01-17 22:11 | XMS_ITS | Encounter Summary ---
:1965 Author Organization [place] Address [address] [place] [address] Care Team Providers Name Role Phone Vanda Guerrero MD Primary Care Provider [phone] Vanda Guerrero MD Unavailable Reason for Visit Reason Comments Medication Refill topiramate (TOPAMAX) 50 MG t ablet Encounter Details Date Type Department Care Team Description 12/11/2016 Refill [facility] Vanda Guerrero M edication Refill Clinic Pino SALDANA (topiramate (TOPAMAX) [address] [facility] 50 MG tablet) [facility] [address] [place] [address] [place] [address] [phone] Social History Tobacco Use Types Packs/Day Years [...] 08/08/2019 relatives? How often do you attend sabianist or christianity Patient refused 08/08/2019 services? Do you belong to any clubs or organizations such as No 08/08/2019 sabianist groups, unions, fraternal or athletic groups, or [...] this encounter Miscellaneous Notes Telephone Encounter - Abigail Burciaga - 12/15/2016 8:20 AM CDT topiramate (TOPAMAX) 50 MG tablet 180 tablet 3 10/11/2016 No Sig: Take 1 tablet (50 mg) by mouth 2 times daily Dose per [facility] 10-11-16. Migraines: Change topiramate to 50mg twice daily. [place] to ask Dr. Guerrero about physical therapy referral, Dr. Guerrreo said she would address at next appt. Resent Rx to pharmacy now and called pharmacy to let them know 50mg, 3tabs qd is incorrect. Abigail Burciaga RN Telephone Encounter - Marisa Matthew - 12/11/2016 9:41 AM CDT DUPLICATE. topiramate (TOPAMAX) 50 MG tablet WAS FILLED ON 10/11/2016, QTY 180 WITH 3 REFILLS. documented in this encounter Plan of Treatment Not on filedocumented as of this encounter Visit Diagnoses Diagnosis Fibromyalgia Mylagia and myositis, unspecified Non morbid obesity, unspecified obesity type documented in this encounter Additional Health Concerns Assessment Noted Time PHQ-9 Depression Total Score: 9 10/12/2016 7:16 AM CDT documented as of this encounter Care Teams Disability Manager Relationship Specialty Start Date End Date Vanda Guerrero MD PCP - General Internal Medicine 04/08/15 01/08/[address] [place] [address] [place] [address] Vanda Guerrero MD PCP - Assigned PCP 07/24/16 06/15/[address] [place] [address] [place] [address] documented as of this encounter
--- OUTSIDE RECORDS SUMMARY | 2022-01-17 22:11 | XMS_ITS | Encounter Summary ---
:1965 Author Organization [place] Address [address] [place] [address] Care Team Providers Name Role Phone Vanda Guerrero MD Primary Care Provider [phone] Vanda Guerrero MD Unavailable Reason for Visit Reason Onset Date Comments Refill Request 11/01/2016 gabapentin (NEURONTI N) 300 MG capsule Encounter Details Date Type Department Care Team Description 11/01/2016 Refill [facility] Vanda Guerrero R efill Request Clinic Pino SALDANA (gabapentin (NEURONTIN) [address] [facility] 300 M G capsule) [facility] [address] [place] [address] [place] [address] [phone] Social History Tobacco Use Types Packs/Day Years [...] How often do you attend yazidism or lutheran Patient refused 08/08/2019 services? Do you belong [...] Miscellaneous Notes Telephone Encounter - Adali Pierson N - 11/01/2016 11:41 AM CDT gabapentin (NEURONTIN) 300 MG capsule Last Written Prescription Date: 11/01/15 Last Fill Quantity: 180, # refills: 11 Last Office Visit with [facility] [place] [place] or Health prescribing provider: 09/25/16 Future Office visit: Routing refill request to provider for review/approval because: Drug not on the [facility] [place] [place] or M Health refill protocol or controlled substance documented in this encounter Plan of Treatment Not on filedocumented as of this encounter Visit Diagnoses Diagnosis History of fusion of cervical spine Arthrodesis status History of lumbar fusion 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
--- OUTSIDE RECORDS SUMMARY | 2022-01-17 22:11 | XMS_ITS | Encounter Summary ---
:1965 Author Organization [place] Address [address] [place] [address] Care Team Providers Name Role Phone Vanda Guerrero MD Primary Care Provider [phone] Vanda Guerrero MD Unavailable JeanaNoreen girard STAPLE CUTTER FLOOR COVERING INSTALLER Unavailable [phone] JeanaNoreen girard STAPLE CUTTER FLOOR COVERING INSTALLER Unavailable [phone] JeanaNoreen girard STAPLE CUTTER FLOOR COVERING INSTALLER Primary Care Provider Kalyan Galvan Unavailable Unavailable Lashae Trevino [facility] Unavailable [phone] Eduardo Sharma MD Unavailable Rios Monteiro MD Unavailable Marcelo Artis-C Unavailable [phone] Rodrigo Man-C Unavailable [phone] Reason for Visit Reason Onset Date Comments Refill Request 08/30/2016 Metformin 500mg tab Encounter Details Date Type Department Care Team Description 08/30/2016 Refill M [facility] Vanda Guerrero R efill Request Clinic Pino SALDANA (Metformin 500mg tab) [address] [facility] [address] [place] [address] [place] [address] [phone] Social History Tobacco Use Types Packs/Day Years [...] Notes Telephone Encounter - Adali Pierson - 08/31/2016 4:17 PM CDT Called spoke to pt informed of rx, scheduled 09/25/[address] Guerrero. Thanks Chema Allan Team Coodinator Telephone Encounter - Vanda Guerrero MD - 08/31/2016 3:26 PM CDT Script sent - patient due for diabetes visit - please help her schedule Telephone Encounter - Luz Marina Waters - 08/30/2016 10:51 AM CDT Metformin 500mg tab Last Written Prescription Date: 03/08/16 Last Fill Quantity: 180, # refills: 1 Last Office Visit with [facility], [facility] or [facility] prescribing provider: 06/01/16 BP Readings from Last 3 Encounters: 08/15/16 114/74 07/18/16 118/78 07/13/16 112/68 Lab Results Component Value Date MICROL 10 09/30/2015 No results found for: MICROALBUMIN Creatinine Date Value Ref Range Status 06/08/2016 0.74 0.52 - 1.04 mg/dL Final ] GFR Estimate Date Value Ref Range Status 06/08/2016 82 >60 mL/min/1.7m2 Final Comment: Non GFR Calc 03/23/2016 78 >60 mL/min/1.7m2 Final Comment: Non GFR Calc 09/30/2015 >90 Non GFR Calc >60 mL/min/1.7m2 Final GFR Estimate If Black Date Value Ref Range Status 06/08/2016 >90 GFR Calc >60 mL/min/1.7m2 Final 03/23/2016 >90 GFR Calc >60 mL/min/1.7m2 Final 09/30/2015 >90 GFR Calc >60 mL/min/1.7m2 Final Lab Results Component Value Date CHOL 152 12/03/2015 Lab Results Component Value Date HDL 51 12/03/2015 Lab Results Component Value Date LDL 79 12/03/2015 Lab Results Component Value Date TRIG 109 12/03/2015 Lab Results Component Value Date CHOLHDLRATIO 2.5 08/10/2014 Lab Results Component Value Date AST 16 03/23/2016 Lab Results Component Value Date ALT 30 03/23/2016 Lab Results Component Value Date A1C 6.1 03/23/2016 A1C 6.2 09/30/2015 A1C 6.0 04/08/2015 A1C 5.8 10/06/2014 A1C 5.9 03/25/2014 Potassium Date Value Ref Range Status 06/08/2016 3.8 3.4 - 5.3 mmol/L Final documented in this encounter Plan of Treatment Not on filedocumented as of this encounter Visit Diagnoses Diagnosis Type 2 diabetes mellitus without complic ation, without long-term current use of insulin (H) - Primary documented in this encounter Additional Health Concerns Infection Onset Date Last Indicated Resolved Time Rule Out COVID-19 08/25/2020 08/25/2020 08/26/2020 3:2 3 PM CDT Assessment Noted Time PHQ-9 Depression Total Score: 11 05/02/2016 7:09 AM CS T documented as of this encounter Care Teams Planimeter Operator Relationship Specialty Start Date End Date Vanda Guerrero, PCP - General Internal Medicine 04/08/15 01/08/[address] [facility] [place] [address] Vanda Guerrero, PCP - Assigned PCP 07/24/16 06/15/[address] [facility] [place] [address] Noreen [place] PCP - Assigned PCP 06/16/18 08/13/18 SEAN Haley FLOOR COVERING INSTALLER [address] [facility] [place] [address] Noreen [place] PCP - General Nurse Practitioner 01/09/19 12/12/21 SEAN Haley FLOOR COVERING INSTALLER [address] [facility] [place] [address] Noreen Hills Assigned PCP 06/16/18 SEAN Haley FLOOR COVERING INSTALLER [address] [facility] [place] [address] Kalyan Galvan Personal Advocate & 08/08/19 Liaison (PAL) Lashae Trevino Pharmacist Pharmacist 10/14/19 12/01/20 [facility] [address] [facility] [address] [place], [place] [id number] Eduardo Sharma MD Assigned Sleep Provider 04/02/20 05/07/[address] [place] [address] Rios Monteiro MD Assigned Musculoskeletal 04/02/20 08/24/[address] Provider [address] [place] [address] Marcelo Artis Assigned Musculoskeletal 08/25/20 08/20/21 MIKAYLA Nuno Provider [address] [facility] [address] [address] [place], [place] [address] Rodrigo Man Assigned Surgical 08/25/2011/27 MIKAYLA Lacy Provider [address] [place] [address] documented as of this encounter
--- OUTSIDE RECORDS SUMMARY | 2022-01-17 22:11 | XMS_ITS | Encounter Summary ---
:1965 Author Organization [place] Address [address] [place] [address] Care Team Providers Name Role Phone Vanda Guerrero MD Primary Care Provider [phone] Vanda Guerrero MD Unavailable Reason for Visit Reason Onset Date Comments Refill Request 09/19/2016 ONE TOUCH ULTRA TEST STRIPS Encounter Details Date Type Department Care Team Description 09/19/2016 Refill [facility] Vanda Guerrero R efill Request (ONE Clinic [place] TOUCH ULTRA TEST [address] [facility] STRIP S) [facility] [address] [place] [address] [place] [address] [phone] Social History Tobacco Use Types Packs/Day Years [...] How often do you attend spiritism or sikh Patient refused 08/08/2019 services? Do [...] Notes Telephone Encounter - Abigail Burciaga - 09/20/2016 4:01 PM CDT Medication is being filled for 1 time refill only due to: appt already scheduled Abigail Burciaga RN Telephone Encounter - Marisa Matthew - 09/19/2016 10:10 AM CDT ONE TOUCH ULTRA TEST STRIPS Last Written Prescription Date: 10/06/2014 Last Fill Quantity: 100, # refills: PRN Last Office Visit with [facility], [facility] or Health prescribing provider: 06/01/2016 Next 5 appointments (look out 90 days) Sep 25, 2016 1:40 PM CDT Office Visit with Vanda Guerrero MD [facility]) [address] [place] [address] [address] [facility] [address] documented in this encounter Plan of Treatment Not on filedocumented as of this encounter Visit Diagnoses Diagnosis Type 2 diabetes mellitus without complic ation (H) - Primary documented in this encounter Additional Health Concerns Assessment Noted Time PHQ-9 Depression Total Score: 11 05/02/2016 7:09 AM CS T documented as of this encounter Care Teams Process Improvement Engineer Relationship Specialty Start Date End Date Vanda Guerrero MD PCP - General Internal Medicine 04/08/15 01/08/[address] [place] [address] [place] [id number] Vanda Guerrero MD PCP - Assigned PCP 07/24/16 06/15/[address] [place] [address] [place] [id number] documented as of this encounter
--- OUTSIDE RECORDS SUMMARY | 2022-01-17 22:11 | XMS_ITS | Encounter Summary ---
:1965 Author Organization [place] Address [address] [place] [address] Care Team Providers Name Role Phone Vanda Borja MD Primary Care Provider [phone] Vanda Borja MD Unavailable Encounter Details Date Type Department Care Team Description 02/17/2017 Orders Only [facility] vated alkaline phosphatase level; [facility] Hypernatremia; [address] [place] Vitamin D deficiency; [address] Hyperlipidemia LDL goal <100 [address] [place] [address] Social History [...] 08/08/2019 relatives? How often do you attend religion or latter-day Patient refused 08/08/2019 services? Do you belong to any clubs or organizations such as No 08/08/2019 religion groups, unions, fraternal or athletic groups, or [...] documented as of this encounter Miscellaneous Notes Addendum Note - Vanda Borja MD - 02/20/2017 7:59 AM CDT Addended by: VANDA BORJA on: 02/20/2017 07:59 AM Modules accepted: Orders Addendum Note - Vanda Borja MD - 02/17/2017 3:03 PM CDT Addended by: VANDA BORJA on: 02/17/2017 03:03 PM Modules accepted: Orders documented in this encounter Plan of Treatment Not on filedocumented as of this encounter Procedures Procedure Name Priority Date/Time Associated Diagnosis Comme nts VITAMIN D DEFICIENCY Routine 02/17/2017 9:13 Vitamin D deficie ncy Results for this SCREENING AM CDT procedure are i n the results section. LIPID REFLEX TO Routine 02/17/2017 9:13 Hyperlipidemia LDL Res ults for this DIRECT LDL PANEL AM CDT goal <100 procedure a re in the results section. GGT Routine 02/17/2017 9:13 Elevated alkaline Results for this AM CDT phosphatase level procedure are in the results section. COMPREHENSIVE Routine 02/17/2017 9:13 Elevated alkaline Result s for this METABOLIC PANEL AM CDT phosphatase leve l procedure are in Hypernatremia the results section. documented in this encounter Results (ABNORMAL) GGT (02/17/2017 9:13 AM CDT) athologist Signature GGT 67 (H) 0 - 40 U/L 02/20/2017 [facility] 7:47 AM CDT [facility] Specimen Anatomical Collection Method Collection Time Receive d Time (Source) Location / / Volume Laterality Blood specimen 02/17/2017 9:13 AM 017 8:18 (specimen) CDT PM CDT Vanda Borja MD LAB - BLOOD ORDERABLES Performing Organization Address City/State/ZIP Code Phon e Number [facility] [address] [place] [address] (ABNORMAL) Lipid panel reflex to direct LDL (02/17/2017 9:13 AM CDT) athologist Signature Cholesterol 178 <200 mg/dL 02/17/2017 [facility] 2:14 PM CDT [facility] Triglycerides 121 <150 mg/dL 02/17/2017 [facility] 2:14 PM CDT [facility] Comment: Fasting specimen HDL Cholesterol 43 (L) >49 mg/dL 02/17/2017 2:14 PM [facility] CDT [facility] LDL Cholesterol 111 (H) <100 mg/dL 02/17/2017 2:14 PM [facility] Calculated CDT [facility] Comment: Above desirable: ??100-129 mg/dl Borderline High: ??130-159 mg/dL High: ? 160-189 mg/dL Very high: ? >189 mg/dl Non HDL Cholesterol 135 (H) <130 mg/dL 02/17/2017 2:14 PM [facility] CDT [facility] Comment: Above Desirable: ??130-159 mg/dl Borderline high: ??160-189 mg/dl High: ? 190-219 mg/dl Very high: ? >219 mg/dl Specimen Anatomical Collection Method Collection Time Receive d Time (Source) Location / / Volume Laterality Blood specimen 02/17/2017 9:13 AM 017 9:18 (specimen) CDT AM CDT Vanda Borja MD LAB - BLOOD ORDERABLES Performing Organization Address City/State/ZIP Code Phon e Number [facility] [address] [place] [address] Vitamin D Deficiency (02/17/2017 9:13 AM CDT) athologist Signature Vitamin D 33 20 - 75 02/19/2017 [facility] ug/L 2:25 PM CDT [facility] Comment: Season, race, dietary intake, and treatm ent affect the concentration of 16-qlcadkh-Njjvsvj D. Values may decreas e during winter [...] 017 9:18 (specimen) CDT AM CDT Vanda Borja MD LAB - BLOOD ORDERABLES Performing Organization Address City/State/ZIP Code Phon e Number [facility] [address] [place] [address] [facility] (ABNORMAL) Comprehensive metabolic panel (02/17/2017 9:13 AM CDT) Analysis Performed At Patho logist Time Signature Sodium 145 (H) 133 - 144 02/17/2017 [place] mmol/L 2:14 PM [facility] Potassium 3.9 3.4 - 5.3 02/17/2017 [place] mmol/L 2:14 PM T [facility] Chloride 111 (H) 94 - 109 02/17/2017 [place] mmol/L 2:14 PM T [facility] Carbon Dioxide 28 20 - 32 02/17/2017 [place] mmol/L 2:14 PM T [facility] Anion Gap 6 3 - 14 02/17/2017 [place] mmol/L 2:14 PM T [facility] Glucose 137 (H) 70 - 99 02/17/2017 [place] mg/dL 2:14 PM T [facility] Comment: Fasting specimen Urea Nitrogen 12 7 - 30 mg/dL 02/17/2017 2:14 PM T [facility] Creatinine 0.75 0.52 - 1.04 mg/dL 02/17/2017 2:14 PM CD T [facility] GFR Estimate 80 >60 mL/min/1.7m2 02/17/2017 2:14 PM C DT [facility] Comment: Non GFR Calc GFR Estimate If >90 >60 mL/min/1.7m2 02/17/2017 2:14 P M [facility] Black [facility] Comment: GFR Calc Calcium 9.1 8.5 - 10.1 02/17/2017 2:14 PM [facility] mg/dL [facility] Bilirubin Total 0.5 0.2 - 1.3 02/17/2017 2:14 PM [facility] mg/dL [facility] Albumin 3.5 3.4 - 5.0 g/dL 02/17/2017 2:14 PM [facility] Protein Total 7.3 6.8 - 8.8 g/dL 02/17/2017 2:14 PM [facility] Alkaline Phosphatase 169 (H) 40 - 150 U/L 02/17/2017 2:14 PM [facility] ALT 32 0 - 50 U/L 02/17/2017 2:14 PM [facility] CDT [facility] AST 17 0 - 45 U/L 02/17/2017 2:14 PM [facility] CDT [facility] Specimen Anatomical Collection Method Collection Time Receive d Time (Source) Location / / Volume Laterality Blood specimen 02/17/2017 9:13 AM 017 9:18 (specimen) CDT AM CDT Vanda Borja MD LAB - BLOOD ORDERABLES Performing Organization Address City/State/ZIP Code Phon e Number [facility] [address] [place] [address] documented in this encounter Visit Diagnoses Diagnosis Elevated alkaline phosphatase level Other nonspecific abnormal serum enzyme levels Hypernatremia Hyperosmolality and/or hypernatremia Vitamin D deficiency Unspecified vitamin D deficiency Hyperlipidemia LDL goal <100 Other and unspecified hyperlipidemia documented in this encounter Additional Health Concerns Assessment Noted Time PHQ-9 Depression Total Score: 9 10/12/2016 7:16 AM CDT documented as of this encounter Care Teams Casket Coverer Relationship Specialty Start Date End Date Vanda Borja MD PCP - General Internal Medicine 04/08/15 01/08/[address] [facility] [place] [address] Vanda Borja MD PCP - Assigned PCP 07/24/16 06/15/[address] [facility] [place] [id number] documented as of this encounter
--- OUTSIDE RECORDS SUMMARY | 2022-01-17 22:11 | XMS_ITS | Encounter Summary ---
:1965 Author Organization [place] Address [address] [place] [address] Care Team Providers Name Role Phone Vanda Guerrero MD Primary Care Provider [phone] Vanda Guerrero MD Unavailable Reason for Visit Reason Onset Date Comments Refill Request 10/06/2016 blood glucose monito ring (ONE TOUCH DELICA) lancets Encounter Details Date Type Department Care Team Description 10/06/2016 Refill [facility] Vanda Guerrero R efill Request (blood Clinic [place] glucose monitoring (ONE [address] [place] [address] [place] TOUCH DELICA) lancets) [facility] [address] [place] [address] [place] [address] [phone] Social History Tobacco Use Types Packs/Day Years [...] How often do you attend anabaptism or druze Patient refused 08/08/2019 services? Do you belong [...] Telephone Encounter - Kirsten Casillas RN - 10/06/2016 11:35 AM CDT Prescription approved per [facility] Refill Protocol. Kirsten Casillas, floorworker distributor Nurse Telephone Encounter - Meri Palma - 10/06/2016 10:11 AM CDT blood glucose monitoring (ONE TOUCH DELICA) lancets Last Written Prescription Date: 10/07/15 Last Fill Quantity: 1 box, # refills: prn Last [facility] with [facility] provider: 09/25/16 Next 5 appointments (look out 90 days) October 11, 2016 2:30 PM CDT [facility] with Sandy [facility], [facility] ([facility]) [address] [place] [address] [address] [facility] [address] BP Readings from Last 3 Encounters: 09/25/16 110/62 08/15/16 114/74 07/18/16 118/78 Lab Results Component Value Date MICROL 8 09/25/2016 Lab Results Component Value Date UMALCR 5.96 09/25/2016 Creatinine Date Value Ref Range Status 09/25/2016 0.72 0.52 - 1.04 mg/dL Final ] GFR Estimate Date Value Ref Range Status 09/25/2016 85 >60 mL/min/1.7m2 Final Comment: Non GFR Calc 06/08/2016 82 >60 mL/min/1.7m2 Final Comment: Non GFR Calc 03/23/2016 78 >60 mL/min/1.7m2 Final Comment: Non GFR Calc GFR Estimate If Black Date Value Ref Range Status 09/25/2016 >90 GFR Calc >60 mL/min/1.7m2 Final 06/08/2016 >90 GFR Calc >60 mL/min/1.7m2 Final 03/23/2016 >90 GFR Calc >60 mL/min/1.7m2 Final Lab Results Component Value Date CHOL 152 12/03/2015 Lab Results Component Value Date HDL 51 12/03/2015 Lab Results Component Value Date LDL 79 12/03/2015 Lab Results Component Value Date TRIG 109 12/03/2015 Lab Results Component Value Date CHOLHDLRATIO 2.5 08/10/2014 Lab Results Component Value Date AST 17 09/25/2016 Lab Results Component Value Date ALT 28 09/25/2016 Lab Results Component Value Date A1C 5.9 09/25/2016 A1C 6.1 03/23/2016 A1C 6.2 09/30/2015 A1C 6.0 04/08/2015 A1C 5.8 10/06/2014 Potassium Date Value Ref Range Status 09/25/2016 4.5 3.4 - 5.3 mmol/L Final documented in [...] documented as of this encounter Care Teams Dean Of Admissions Relationship Specialty Start Date End Date Vanda Guerrero MD PCP - General Internal Medicine 04/08/15 01/08/19 [address] [facility] [place] [address] Vanda Guerrero MD PCP - Assigned PCP 07/24/16 06/15/18 [address] [facility] [place] [id number] documented as of this encounter
--- OUTSIDE RECORDS SUMMARY | 2022-01-17 22:11 | XMS_ITS | Encounter Summary ---
:1965 Author Organization [place] Address [address] [place] [address] Care Team Providers Name Role Phone Vanda Guerrero MD Primary Care Provider [phone] Vanda Guerrero MD Unavailable Reason for Visit Reason Comments Medication Refill loratadine-pseudoePHEDrine ( CLARITIN-D 24-HOUR) 10-240 MG per tablet Encounter Details Date Type Department Care Team Description 02/02/2017 Refill [facility] Good dication Refill Clinic [place] APRN FOLDER SEAMER [employer]OMATIC (loratadine-pseudoePHEDr [address] [place] [address] [facility] ine ( CLARITIN-D 24-HOUR) [facility] 10-240 MG per tablet ) [address] [place] [address] [place] [address] [phone] Social History Tobacco Use Types Packs/Day Years [...] How often do you attend christianity or scientologist Patient refused 08/08/2019 services? Do [...] Notes Telephone Encounter - Lori Weber - 02/06/2017 11:45 AM CDT Faxed RX to patients pharmacy. Lori Weber MA Telephone Encounter - Vanda Guerrero MD - 02/05/2017 11:01 AM CDT Script printed, signed, and in station out basket. Telephone Encounter - Kirsten Casillas RN - 02/05/2017 10:27 AM CDT Routing refill request to provider for review/approval because: Drug not active on patient's medication list, not on [facility] protocol. Kirsten Casillas, pest management supervisor Nurse Telephone Encounter - Marisa Matthew - 02/05/2017 8:15 AM CDT loratadine-pseudoePHEDrine (CLARITIN-D 24-HOUR) 10-240 MG per tablet Last Written Prescription Date: 02/23/2016 Last Fill Quantity: 90, # refills: 3 Last Office Visit with [facility], P or Health prescribing provider: 09/25/2016 Future Office visit: Routing refill request to provider for review/approval because: Drug not on the [facility], [facility] or Health refill protocol or controlled substance documented in this encounter Plan of Treatment Not on filedocumented as of this encounter Visit Diagnoses Diagnosis Chronic seasonal allergic rhinitis, unsp ecified trigger - Primary documented in this encounter Additional Health Concerns Assessment Noted Time PHQ-9 Depression Total Score: 9 10/12/2016 7:16 AM CDT documented as of this encounter Care Teams Nurse Midwife/Clinical Instructor Relationship Specialty Start Date End Date Vanda Guerrero MD PCP - General Internal Medicine 04/08/15 01/08/[address] [facility] [place] [address] Vanda Guerrero MD PCP - Assigned PCP 07/24/16 06/15/[address] [facility] [place] [id number] documented as of this encounter
--- OUTSIDE RECORDS SUMMARY | 2022-01-17 22:11 | XMS_ITS | Encounter Summary ---
:1965 Author Organization [place] Address [address] [place] [address] Care Team Providers Name Role Phone Vanda Guerrero MD Primary Care Provider [phone] Vadna Guerrero MD Unavailable Reason for Visit Reason Comments Diabetes Education Encounter Details Date Type Department Care Team Description 11/14/2016 Allied Health/Nurse [facility] Diabetes Education Visit [address] [place] [address] Social History Tobacco Use Types Packs/Day [...] How often do you attend protestant or mormonism Patient refused 08/08/2019 services? Do [...] on file documented as of this encounter Nursing Wilda Talbert - 11/14/2016 10:30 AM CDT Images from the original note were not included. Diabetes Self Management Training: Follow-up Visit Megan Aleyda Choi presents today for education related to Type 2 diabetes. She is accompanied by self Patient's diabetes management related comments/concerns: I just want to take less medication, I wasable to go off Metformin and my blood sugars are still ok. Patient's emotional response to diabetes: concern for health and well-being and confidence diabetes can be controlled Patient would like this visit to be focused around the following diabetes- related behaviors and goals: Assistance with making lifestyle changes and Healthy Eating ASSESSMENT: Patient Problem List and Family Medical History reviewed for relevant medical history, current medical status, and diabetes risk factors. Current Diabetes Management per Patient: Taking diabetes medications? No - recently weaned off of Metformin (last dose October 11) Past Diabetes Education: Yes BG meter: One Touch Ultra 2 meter BG results: BG values are: In goal Patient's most recent Lab Results Component Value Date A1C 5.9 09/25/2016 is meeting goal of <7.0 Nutrition: Patient is trying to eat 3 meals per day. She would like to lose weight. Used to follow Weight Watchers which worked well for her. Patient brought in the following 3 food record: Beverages: water, Diet [place] (trying to reduce) Cultural/mormonism diet restrictions: No Biggest Challenge to Healthy Eating: finances and knowing what to eat Physical Activity: Limitations: recent ankle surgery Walks as able Diabetes Risk Factors: family history, age over 45 years, hyperlipidemia, overweight/obesity and inactivity Diabetes Complications: Not discussed today. Vitals: LMP 10/30/2011 Estimated body mass index is 35.5 kg/(m^2) as calculated from the following: Height as of 09/25/16: 1.575 m (5' 2). Weight as of 10/11/16: 88 kg (194 lb 1.6 oz). Last 3 BP: BP Readings from Last 3 Encounters: 10/11/16 116/85 09/25/16 110/62 08/15/16 114/74 History Smoking Status ??? Never Smoker Smokeless Tobacco ??? Never Used Labs: Lab Results Component Value Date A1C 5.9 09/25/2016 Lab Results Component Value Date GLC 100 09/25/2016 Lab Results Component Value Date LDL 79 12/03/2015 HDL Cholesterol Date Value Ref Range Status 12/03/2015 51 >49 mg/dL Final ] GFR Estimate Date Value Ref Range Status 09/25/2016 85 >60 mL/min/1.7m2 Final Comment: Non GFR Calc GFR Estimate If Black Date Value Ref Range Status 09/25/2016 >90 GFR Calc >60 mL/min/1.7m2 Final Lab Results Component Value Date CR 0.72 09/25/2016 No results found for: MICROALBUMIN Socio/Economic Considerations: Support system: spouse/significant other Health Beliefs and Attitudes: Patient Activation Measure Survey Score: CINDA Score (Last Two) 04/08/2010 08/26/2010 CINDA Raw Score 42 47 Activation Score 66 77.5 CINDA Level 3 4 Stage of Change: PREPARATION (Decided to change - considering how) Diabetes knowledge and skills assessment: Patient is knowledgeable in diabetes management concepts related to: Being Active, Monitoring, Taking Medication and Problem Solving Patient needs further education on the following diabetes management concepts: Healthy Eating, Reducing Risks and Healthy Coping Barriers to Learning Assessment: No Barriers identified Based on learning assessment above, most appropriate setting for further diabetes education would be: Individual setting. INTERVENTION: Education provided today on: AADE Self-Care Behaviors: Healthy Eating: carbohydrate counting, weight reduction, heart healthy diet, portion control, plate planning method, label reading and healthy eating on a budget Reducing Risks: A1C - goals, relating to blood glucose levels, how often to check Healthy Coping: benefits of making appropriate lifestyle changes, utilize support systems and methods for coping with stress Opportunities for ongoing education and support in diabetes-self management were discussed. Pt verbalized understanding of concepts discussed and recommendations provided today. Education Materials Provided: [place] Understanding Diabetes Booklet, Carbohydrate Counting, My Plate Greenskeeper Head, Diabetes on a Budget Healthy Eating information and Managing Weight PLAN: Meal Plan Recommendation: use portion control and choose healthier carbs (no more than 2-3 choices per meal and 0-1 for snacks), start planning meals- refer to healthy eating on a budget resources Exercise / activity plan: walking as able Check blood sugars occasionally - vary testing times. AVS printed and provided to patient today. FOLLOW-UP: CDE follow-up as needed. Patient will call to schedule. Chart routed to referring provider. Ongoing plan for education and support: Written resources (magazines, books, etc.), Follow-up visit with inclusion paraeducator and Follow-up with primary care provider Wilda Fernandez RD, CDE Diabetes Central Sterilization Technician Time Spent: 60 minutes Encounter Type: Individual Any diabetes medication dose changes were made via the CDE Protocol and Collaborative Practice Agreement with the patient's primary care provider. A copy of this encounter was shared with the provider. documented in this encounter Plan of Treatment Not on filedocumented as of this encounter Visit Diagnoses Diagnosis Type 2 diabetes mellitus without complic ation, without long-term current use of insulin (H) - Primary Non morbid obesity, unspecified obesity type documented in this encounter Additional Health Concerns Assessment Noted Time PHQ-9 Depression Total Score: 9 10/12/2016 7:16 AM CDT documented as of this encounter Care Teams Paying Teller Relationship Specialty Start Date End Date Vanda Guerrero MD PCP - General Internal Medicine 04/08/15 01/08/19 [address] [facility] [place] [address] Vanda Guerrero MD PCP - Assigned PCP 07/24/16 06/15/18 [address] [facility] [place] [address] documented as of this encounter
--- OUTSIDE RECORDS SUMMARY | 2022-01-17 22:11 | XMS_ITS | Encounter Summary ---
:1965 Author Organization [facility] Address [address] [place] [address] Care Team Providers Name Role Phone Vanda Guerrero MD Primary Care Provider [phone] Vanda Guerrero MD Unavailable Reason for Visit [facility] Physical Therapy (Routine) - Closed Specialty Diagnoses / Procedures Referred By Contact Refer red To Contact Physical Therapy Diagnoses new pt needs paperwork post peroneal tendon repair surgery left foot. / Agatha Null DPM, Pod @ [facility] Agatha Null DPM, Candy Disla, PT Procedures [facility] Podiatry/Foot and [facility] [address] [place] [address] [place] [address] [place] [address] Referral ID Status Reason Start Date Expiration Date Visits V isits Requested Authorized LINUS/BC/LFOOT Closed 07/03/2016 06/10/2017 20 18 Encounter Details Date Type Department Care Team Description 09/01/[address] [facility], [facility]; Rehabilitation PT Aftercare following surgery of the [facility] Services [facility] [address] [place] [address] [place], [place] [phone] [id number] Social History Tobacco Use Types Packs/Day Years [...] How often do you attend jewish or muslim Patient refused 08/08/2019 services? Do [...] Name Priority Date/Time Associated Diagnosis Comme nts Z NEUROMUSCULAR Routine 09/01/2016 2:38 PM Ankle pain, left RE-EDUCATION CDT Aftercare following surgery of the musculoskeletal system Z THERAPEUTIC Routine 09/01/2016 2:38 PM Ankle pain, l eft EXERCISES CDT Aftercare following surgery of the musculoskeletal system documented in this encounter Visit Diagnoses Diagnosis Ankle pain, left Pain in joint, ankle and foot Aftercare following surgery of the muscu loskeletal system Aftercare following surgery of the muscu loskeletal system, NEC documented in this encounter Additional Health Concerns Assessment Noted Time PHQ-9 Depression Total Score: 11 05/02/2016 7:09 AM CS T documented as of this encounter Care Teams [employer] Relationship Specialty Start Date End Date Vanda Guerrero MD PCP - General Internal Medicine 04/08/15 01/08/[address] [facility] [place] [id number] Vanda Guerrero MD PCP - Assigned PCP 07/24/16 06/15/[address] [place] [address] [place] [id number] documented as of this encounter
--- OUTSIDE RECORDS SUMMARY | 2022-01-17 22:11 | XMS_ITS | Encounter Summary ---
:1965 Author Organization [facility] Address [address] [place] [address] Care Team Providers Name Role Phone Vanda Guerrero MD Primary Care Provider [phone] Vanda Guerrero MD Unavailable Reason for Referral Specialty Diagnoses / Procedures Referred By Contact Refer red To Contact [facility] [address] [place] [address] [place] [id number] Referral ID Status Reason Start Date Expiration Date Visits Requ ested Visits Authorized Reason for Visit Reason Comments Medication Therapy Management Encounter Details Date Type Department Care Team Description 10/11/2016 Office Visit [facility] Sandy Joe Fibrom yalgia (Primary Dx); Clinic Pino Jerez RPH Non morbid obesity, unspecified obesity type; [address]RE Type 2 diabetes mellitus without complic ation, without long-term current use of insulin (H); [address] [place] [address] Vitamin D deficiency; [address] Anxiety; DAVID Pringle (Work) Moderate episod e of recurrent major depressive disorder (H); [id number] Gastroesophageal reflux dise ase without esophagitis; [phone] Hyperlipidemia LDL goal <100; Migraine withou t status migrainosus, not intractable, unspecified migraine type; Seasonal allerg ic rhinitis, unspecified allergic rhinitis trigger; Chronic bilater al low back pain, with sciatica presence unspecified Social History Tobacco Use Types Packs/Day Years [...] How often do you attend gnosticist or hinduism Patient refused 08/08/2019 services? Do [...] Sign Reading Time Taken Comments Blood Pressure 116/85 10/11/2016 2:50 PM CDT Pulse 72 10/11/2016 2:50 PM CDT Temperature - - Respiratory Rate - - Oxygen Saturation - - Inhaled Oxygen Concentration - - Weight 88 kg (194 lb 1.6 oz) 10/11/2016 2:50 PM CDT Height - - Body Mass Index 35.5 09/25/2016 1:44 PM CDT documented in this encounter Patient Instructions Patient InstructionsSandy Joe, [facility] - 10/11/2016 2:30 PM CDT Recommendations from today's MTM visit: MTM (medication therapy management) is a service provided by a clinical pharmacist designed to help you get the most of out of your medicines. Vitamin D deficiency: After 50,000 IU aim for 2,000 IU of vitamin D (look in your multivitamin) Diabetes: Stop metformin. Meet with educator senior clinical. Migraines: Change topiramate to 50mg twice daily. Sandy to ask Dr. Guerrero about physical therapy referral. Pain: Stop morning dose of tizanidine 4mg or take 1/2 tablet, next if this is okay then take 1/2 tablet at dinner or stop. Future considerations: Gabapentin: Decrease by 300mg every 1-4 weeks. Mood and Anxiety: Consider weaning off the citalopram by decreasing by 10mg every 2-3 weeks Next MTM/pharmacist visit: 1-2 months if insurance covers service To schedule another MTM appointment, please call the clinic directly or you may call the MTM scheduling line at [phone] or toll-free at . My Clinical Pharmacist's contact information: It was a pleasure seeing you today! Please feel free to contact me with any questions or concerns you have. Sandy Joe, Donald [facility] Medication Therapy Management Practitioner #[phone] You may receive a survey about the MTM services you received. I would appreciate your feedback to help me serve you better in the future. Please fill it out and return it when you can. Your comments will be anonymous. documented in this encounter Progress Notes Sandy Joe RPH - 10/11/2016 2:30 PM CDT SUBJECTIVE/OBJECTIVE: Megan Choi is a 51 year old female coming in for an initial visit for Medication Therapy Management. She was referred to me from Dr. Guerrero. Chief Complaint: She wants to get off medications. Wants to decrease weight. Allergies/ADRs: Reviewed in [employer] Tobacco: No tobacco use Alcohol: Less than 1 beverage / month Caffeine: no caffeine Activity: She is not exercising due to foot surgery, torn tendons PMH: Reviewed in [facility] Medication Adherence: no issues reported and sets up own med boxes Allergic rhinitis: Current medications include loratadine 10mg once daily and fluticasone nasal spray 2 spray(s) once daily. Fluid in her ears. Pt feels that current therapy is effective and needs medication. Diabetes: Pt currently taking metformin 500mg QD. She wants to come off, she does not want to take for prevention of diabetes. Pt is not experiencing side effects. SMBG: several times a week. Ranges (patient reported): 90-130 before meals, after meals are good Symptoms of low blood sugar? none. Frequency of hypoglycemia? never. Recent symptoms of high blood sugar? none Eye exam: up to date Foot exam: up to date Microalbumin is < 30 mg/g. Pt is not taking an ACEi/ARB. Aspirin: Taking 81mg daily and denies side effects. She has a history of DVT. No bleeding reported Diet/Exercise: no exercise, did meet CDE and dicussed diet Lab Results Component Value Date A1C 5.9 09/25/2016 A1C 6.1 03/23/2016 A1C 6.2 09/30/2015 A1C 6.0 04/08/2015 A1C 5.8 10/06/2014 Vitamin D deficiency: Current medication is vitamin D 50,000 IU once daily. She recently started with no side effects. Component Latest Ref Rng & Units 09/25/2016 Vitamin D Deficiency screening 20 - 75 ug/L 25 Fibromyalgia/chronic pain: Current medication is gabapentin 300mg in the AM and 600mg at dinner and 600mg bedtime and duloxetine 30mg BID, tizanidine 4mg in AM, 4mg in evening, 8 mg at bedtime. Neck pain and muscle pain. She is not sure if she has this diagnosis. She has arthritis in her back, historyof back pain and injections. Most of her pain is in neck and shoulders and then hips down. She has calf pain. Describes as aching and shooting pain. Can pinpoint at times. Duloxetine did not help with pain that she thinks but hard to tell. Gabapentin making her tired and having weight gain. 14 lb weight gain in last year since she started this. She does use Tylenol 1000mg and ibuprofen 800mg about once a week. Can not do Icy Hot--to hot for her. Massage helps, has not tried physical therapy Estimated Creatinine Clearance: 92.3 mL/min (based on Cr of 0.72). Weight gain: 14 lbs in last year. Trying to eat healthier Anxiety/depression: Current medications include: Citalopram 30mg once daily, duloxetine 30mg BID. Get stressed out easily. Was going to therapy and will be going back once she gets her bills paid for. Duloxetine worked at first for depression but then citalopram added on after that, increased several months ago due to anxiety. She watches grandchildren and feels the weight of her family on her shoulders. PHQ-9 SCORE 12/22/2015 05/01/2016 10/11/2016 Total Score - - - Total Score MyChart - 11 (Moderate depression) - Total Score 10 - 9 HELGA-7 SCORE 07/08/2015 12/22/2015 10/11/2016 Total Score - - - Total Score 7 8 3 GERD: Current medications include: Prilosec (omeprazole) 20mg BID Pt c/o heartburn, bilious reflux. Patient feels that current regimen is effective. Hyperlipidemia: Current therapy includes simvastatin 20mg once daily. Pt reports no significant myalgias or other side effects. Pain in her calves. This is not new Migraines: Current medication is topiramate 150mg HS and Imitrex 50mg as needed. Getting break through once a week. She has seen massage therapist (daughter) and has helped. Use to see neurologist but stopped seeing. Current labs include: BP Readings from Last 3 Encounters: 09/25/16 110/62 08/15/16 114/74 07/18/16 118/78 Today's Vitals: BP (!) 116/95 Pulse 72 Wt 194 lb 1.6 oz (88 kg) LMP 10/30/2011 BMI 35.5 kg/m2 Lab Results Component Value Date A1C 5.9 09/25/2016 . Lab Results Component Value Date CHOL 152 12/03/2015 Lab Results Component Value Date TRIG 109 12/03/2015 Lab Results Component Value Date HDL 51 12/03/2015 Lab Results Component Value Date LDL 79 12/03/2015 Liver Function Studies - Recent Labs Lab Test 09/25/16 1430 PROTTOTAL 7.4 ALBUMIN 3.7 BILITOTAL 0.2 ALKPHOS 165* AST 17 ALT 28 Lab Results Component Value Date UCRR 128 09/25/2016 MICROL 8 09/25/2016 UMALCR 5.96 09/25/2016 Last Basic Metabolic Panel: Lab Results Component Value Date NA 148 09/25/2016 Lab Results Component Value Date POTASSIUM 4.5 09/25/2016 Lab Results Component Value Date CHLORIDE 113 09/25/2016 Lab Results Component Value Date BUN 13 09/25/2016 Lab Results Component Value Date CR 0.72 09/25/2016 GFR Estimate Date Value Ref Range Status [...] 03/23/2016 >90 GFR Calc >60 mL/min/1.7m2 Final TSH Date Value Ref Range Status 09/25/2016 1.80 0.40 - 4.00 mU/L Final ] Most Recent Immunizations Administered Date(s) Administered ??? Influenza (IIV3) 03/09/2011 ??? Influenza Vaccine IM 3yrs+ 4 Valent IIV4 03/23/2016 ??? Pneumococcal 23 valent 10/06/2014 ??? TD (ADULT, 7+) 06/16/2005 ??? TDAP Vaccine (Adacel) 03/23/2016 ASSESSMENT: Current medications were reviewed today. Medication Adherence: no issues identified. Patient really wants to come off medication. Suggest this may be a slow process. Allergic rhinitis: stable Diabetes: Stable. Patient is meeting A1c goal of < 7%. Pt would benefit from Metformin : Discontinuation trial. Discussed potential benefit for delaying diabetes progression but she does not want marisol on a medication for this Referral to diabetic education for weight loss. Vitamin D deficiency: needs improvement. Pt did not understand she was to take vitamin D 2,000 IU after finishing her replacement vitamin dosing Fibromyalgia/chronic pain: Needs improvement. Current medications indicated for condition but patient having side effects and would like a trial off. Discussed side effects and reviewed UpToDate (see below) and decided to wean down on tizanidine first. In the future could give gabapentin a trial off and gave weaning directions. Tizanidine: Central nervous system: Drowsiness (48%), dizziness (16%) Gastrointestinal: Xerostomia (49%) Gabapetin: Central nervous system: Dizziness (IR: 17% to 28%; children 3%; Gralise: 11%), drowsiness(IR: 19% to 21%; children 8%; Gralise: 5%), ataxia (1% to 13%), fatigue (11%; children 3%) Recommend exercise, possible PT referral. Information given to pt from UpToDate today. Weight gain: Needs improvement. Discussed meeting with kindergarten classroom teacher and continuing topiramate for now. Give consideration of PT since patient is having difficulty with exercise due to foot surgeries. Anxiety/depression: Needs improvement. Pt would benefit from meeting with therapist, she has plan todo this in the future. Possible trial of weaning off citalopram. In reviewing medications I could not get a clear sense of which medication worked better between duloxetine and citalopram, duloxetine has indication for chronic pain and my reason for weaning off citalopram. GERD: stable Hyperlipidemia: stable and LDL <100 Migraines: needs improvement. Pt may not be getting the best efficacy from QD dosing. She would benefit from decreasing dose and changing to twice daily on topiramate per UpToDate recommendation on migraine prevention dosing. PLAN: Vitamin D deficiency: After 50,000 IU aim for 2,000 IU of vitamin D (look in your multivitamin) Diabetes: Stop metformin. Meet with educator senior clinical, CDE referral placed. Migraines: Change topiramate to 50mg twice daily. Sandy to ask Dr. Guerrero about physical therapy referral, Dr. Guerrero said she would address at next appt. Pain: Stop morning dose of tizanidine 4mg or take 1/2 tablet, next if this is okay then take 1/2 tablet at dinner or stop. Future considerations: Gabapentin: Decrease by 300mg every 1-4 weeks. Mood and Anxiety: Consider weaning off the citalopram by decreasing by 10mg every 2-3 weeks Trial off statin to see if helps with ongoing calf pain. Next MTM/pharmacist visit: 1-2 months if insurance covers service I spent 60 minutes with this patient today. Cost of services discussed before visit, [facility] Note. All changes were made via collaborative practice agreement with Vanda Guerrero. A copy of the visit note was provided to the patient's primary care provider. The patient was given a summary of these recommendations as an after visit summary. Sandy Joe PharmD [facility] Medication Therapy Management Practitioner VM #[phone] documented in this encounter Plan of Treatment Not on filedocumented as of this encounter Visit Diagnoses Diagnosis Fibromyalgia - Primary Mylagia and myositis, unspecified Non morbid obesity, unspecified obesity type Type 2 diabetes mellitus without complic ation, without long-term current use of insulin (H) Vitamin D deficiency Unspecified vitamin D deficiency Anxiety Anxiety state, unspecified Moderate episode of recurrent major depr essive disorder (H) Gastroesophageal reflux disease without esophagitis Esophageal reflux Hyperlipidemia LDL goal <100 Other and unspecified hyperlipidemia Migraine without status migrainosus, not intractable, unspecified migraine type Seasonal allergic rhinitis, unspecified allergic rhinitis trigger Chronic bilateral low back pain, with sc iatica presence unspecified documented in this encounter Additional Health Concerns Assessment Noted Time PHQ-9 Depression Total Score: 9 10/12/2016 7:16 AM CDT documented as of this encounter Care Teams Appointment Coordinator Relationship Specialty Start Date End Date Vanda Guerrero MD PCP - General Internal Medicine 04/08/15 01/08/19 [address] [facility] [place] [id number] Vanda Guerrero MD PCP - Assigned PCP 07/24/16 06/15/18 [address] [facility] [place] [id number] documented as of this encounter
--- OUTSIDE RECORDS SUMMARY | 2022-01-17 22:11 | XMS_ITS | Encounter Summary ---
:1965 Author Organization [place] Address [address] [place] [address] Care Team Providers Name Role Phone Vanda Guerrero MD Primary Care Provider [phone] Vanda Guerrero MD Unavailable Reason for Visit (Routine) - Closed Specialty Diagnoses / Procedures Referred By Contact Refer red To Contact Radiology / Radiology. Diagnoses Epic order, sb pt Rh [place] [address] [place] [address] Phone: Fax: Referral ID Status Reason Start Date Expiration Date Visits Requ ested Visits Authorized [id number] Closed 12/25/2016 12/22/2017 1 1 Encounter Details Date Type Department Care Team Description 12/25/2016 Hospital Encounter [facility] Agatha Null, Marcos eft foot pain; [facility] DPM, Acute left ankle pain; [id number] [place] [facility]/Foot and Type 2 d iabetes mellitus without complication, without long-term current use of insulin (H); Drive [address] Ankle Surgery [place]ema [place] [address] [place] [address] [facility] [address] [place] [address] Social History Tobacco Use Types [...] How often do you attend restorationism or hindu Patient refused 08/08/2019 services? Do [...] capsule 8 capsule 0 017 01/02/2019 D3) 90403 UNITS (50,000 Units) by capsuleIndications: mouth once a week Vitamin D deficiency citalopram (CELEXA) 20 Take 1.5 tablets 135 tablet 3 017 06/12/2017 MG tabletIndications: (30 mg) by mouth Anxiety daily DULoxetine (CYMBALTA) 30 Take 1 capsule (30 180 capsule 2 05/14/2017 MG EC mg) by mouth 2 capsuleIndications: times daily Fibromyalgia estradiol (ESTRACE) 0.1 Place 2 g vaginally 42.5 g 04/09/2018 MG/GM vaginal each night for 2 creamIndications: weeks, then use Symptomatic menopausal three times weekly or female climacteric states fluticasone (FLONASE) 50 [place] 1-2 sprays 3 Bottle 3 05/0306/12/2017 MCG/ACT nasal into both nostrils sprayIndications: daily Dysfunction of Eustachian tube, bilateral gabapentin (NEURONTIN) Take 1 tablet in 180 capsule 11 201605/07/2017 300 MG the AM and 2 dinner capsuleIndications: and 2 at bedtime History of fusion of cervical spine, History of lumbar fusion, Chronic left-sided low back pain with left-sided sciatica loratadine (CLARITIN) 10 Take 10 mg by mouth 0 04/09/2018 MG tablet daily multivitamin, Take 1 tablet by 0 10/13 therapeutic with mouth daily minerals (MULTI-VITAMIN) TABS omeprazole (PRILOSEC) 20 Take 2 capsules (40 180 capsule 3 1 05/04/2017 MG capsuleIndications: mg) by mouth daily Gastroesophageal reflux disease without esophagitis order for [...] obesity, unspecified obesity type simvastatin (ZOCOR) 20 Take 1 tablet (20 90 tablet 3 201502/15/2017 MG tabletIndications: mg) by mouth At Hyperlipidemia LDL goal Bedtime <100 SUMAtriptan (IMITREX) 25 Take 1-2 tablets 18 tablet 3 03/2607/13/2017 MG tabletIndications: (25-50 mg) by mouth Migraine without status at onset of migrainosus, not headache for intractable, unspecified migraine May repeat migraine type in 2 hours. Max 8 tablets/24 hours. tiZANidine (ZANAFLEX) 4 Take 1-2 tablets 90 tablet 5 201605/05/2017 MG tabletIndications: (4-8 mg) by mouth 2 Cervicalgia, History of times daily as fusion of cervical needed for muscle spine, History of lumbar spasms fusion topiramate (TOPAMAX) 50 Take 1 tablet (50 180 tablet 3 12/1502/15/2018 MG tabletIndications: mg) by mouth 2 Fibromyalgia, Non morbid times daily obesity, unspecified obesity type documented as of this encounter Plan of Treatment Not on filedocumented as of this encounter Procedures Procedure Name Priority Date/Time Associated Diagnosis Comme nts MR FOOT LEFT W/O Routine 12/25/2016 4:56 PM Left foot pa in Results for this CONTRAST CDT Acute left ankle procedure a re in pain the results Type 2 diabetes section. mellitus without complication, without long-term current use of insulin (H) Edema of left lower extremity documented in this encounter Results MR Foot Left w/o Contrast (12/25/2016 4:56 PM CDT) Anatomical Region Laterality Modality Left Foot, SUBRAD MR MSK, UMP MR MSK Mag netic Resonance Specimen (Source) Anatomical Location Collection Method / Collectio n Time Received Time / Laterality Volume Impressions 12/26/2016 7:58 AM CDT IMPRESSION: 1. Small foci of subchondral marrow aubree a or early subchondral cyst formation within the lateral cuneiform a djacent to the third tarsometatarsal joint and within the med ial cuneiform adjacent to the naviculocuneiform joint. 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 Joint alignment appears within normal limits. 2. Small nonspecific cyst or erosion wit hin the plantar lateral aspect of the fifth metatarsal head of indeterm inate significance. No adjacent joint effusion is demonstrated. 3. No evidence of metatarsal stress frac ture. ABRAHAM BAEZ MD Narrative 12/26/2016 7:58 AM CDT MR FOOT LEFT WITHOUT CONTRAST December 25, 2016 4:56 PM HISTORY: Assess for stress fracture left fifth metatarsal toe. Pain in left foot. Pain in left ankle and joints of left foot. Type 2 diabetes mellitus without complications. Localize d edema. TECHNIQUE: Sagittal, long axis, and shor t axis T1 and inversion recovery pulse sequences. FINDINGS: Marrow edema or small subchond ral cysts are noted within the lateral cuneiform adjacent to the third tarsometatarsal joint. While nonspecific, this may be related to barrera y degenerative arthrosis. Focal subchondral marrow edema or early subchondral cyst formation is also noted within the medial cuneiform a t the talonavicular joint. Mild marrow edema is also noted in the p lantar lateral aspect of the cuboid adjacent to the peroneus brevis t endon. Small cysts or erosions are also noted in the plantar lateral as pect of the fifth metatarsal head. Marrow signal within the metatarsa ls as well as remainder of the forefoot appears within normal limits. T arsometatarsal joint alignment is within normal limits. There is a smal l amount of fluid in the first metatarsophalangeal joint which could be physiologic. Soft tissue signal within the forefoot appears withi n normal limits with no evidence of soft tissue mass or cyst. Procedure Note Sridevi Baez MD - 12/26/2016Formatt ing of this note might be different from the original. MR FOOT LEFT WITHOUT CONTRAST December 25, 017 4:56 PM HISTORY: Assess for stress fracture left fifth metatarsal toe. Pain in left foot. Pain in left ankle and joints of left foot. Type 2 diabetes mellitus without complications. Localize d edema. TECHNIQUE: Sagittal, long axis, and shor t axis T1 and inversion recovery pulse sequences. FINDINGS: Marrow edema or small subchond ral cysts are noted within the lateral cuneiform adjacent to the third tarsometatarsal joint. While nonspecific, this may be related to barrera y degenerative arthrosis. Focal subchondral marrow edema or early subchondral cyst formation is also noted within the medial cuneiform a t the talonavicular joint. Mild marrow edema is also noted in the p lantar lateral aspect of the cuboid adjacent to the peroneus brevis t endon. Small cysts or erosions are also noted in the plantar lateral as pect of the fifth metatarsal head. Marrow signal within the metatarsa ls as well as remainder of the forefoot appears within normal limits. T arsometatarsal joint alignment is within normal limits. There is a smal l amount of fluid in the first metatarsophalangeal joint which could be physiologic. Soft tissue signal within the forefoot appears withi n normal limits with no evidence of soft tissue mass or cyst. IMPRESSION: 1. Small foci of subchondral marrow aubree a or early subchondral cyst formation within the lateral cuneiform a djacent to the third tarsometatarsal joint and within the med ial cuneiform adjacent to the naviculocuneiform joint. 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 Joint alignment appears within normal limits. 2. Small nonspecific cyst or erosion wit hin the plantar lateral aspect of the fifth metatarsal head of indeterm inate significance. No adjacent joint effusion is demonstrated. 3. No evidence of metatarsal stress frac ture. ABRAHAM BAEZ MD Agatha Null DPM, Podiatry/Foot and Ankle Surgery IMG MRI ORDERABLES documented in this encounter Visit Diagnoses Diagnosis Left foot pain Pain in limb Acute left ankle pain Type 2 diabetes mellitus without complic ation, without long-term current use of insulin (H) Edema of left lower extremity Edema documented in this encounter Additional Health Concerns Assessment Noted Time PHQ-9 Depression Total Score: 9 10/12/2016 7:16 AM CDT documented as of this encounter Care Teams Review Rn Relationship Specialty Start Date End Date Vanda Guerrero MD PCP - General Internal Medicine 04/08/15 01/08/19 [address] [facility] [place] [id number] Vanda Guerrero MD PCP - Assigned PCP 07/24/16 06/15/18 [address] [facility] [place] [id number] documented as of this encounter
--- OUTSIDE RECORDS SUMMARY | 2022-01-17 22:11 | XMS_ITS | Encounter Summary ---
:1965 Author Organization [facility] Address [address] [place] [address] Care Team Providers Name Role Phone Vanda Guerrero MD Primary Care Provider [phone] Vanda Guerrero MD Unavailable Reason for Visit (Routine) - Closed Specialty Diagnoses / Procedures Referred By Contact Refer red To Contact Cardiology Diagnoses EPIC ORDER SB PT PREP INFORMED [facility] Electrocardiology Procedures EKG STRESS NM LEXISCAN [address] [place], [place] [address] Phone: Referral ID Status Reason Start Date Expiration Date Visits Requ ested Visits Authorized [id number] Closed 10/17/2016 10/17/2017 1 1 Encounter Details Date Type Department Care Team Description 10/17/2016 Hospital Encounter [facility] Vanda Watkins history of [place] (myocardial infarction); Electrocardiolgy MD Catarino Atypical chest pain [address] [place], [place] [address] [place] [address] Social History Tobacco Use Types Packs/Day [...] How often do you attend rastafari or religion Patient refused 08/08/2019 services? Do you belong to any clubs or organizations such as No 08/08/2019 rastafari groups, Yeelions, fraternal or athletic groups, or school groups? [...] monitoring Use to test blood 1 Box 04/1206/16/2020 (ACCU-CHEK MULTICLIX) sugar 2 times lancetsIndications: Type daily or as 2 diabetes, HbA1c goal < directed. 7% (H) blood glucose monitoring Use to test blood 1 Box 09/1006/16/2020 (ONE TOUCH DELICA) sugars 1 times lancetsIndications: Type daily or as 2 diabetes, HbA1c goal < directed. 7% (H) cholecalciferol (VITAMIN Take 1 capsule 8 capsule 0 017 01/02/2019 D3) 19650 UNITS (50,000 Units) by capsuleIndications: mouth once a week Vitamin D deficiency citalopram (CELEXA) 20 MG Take 1.5 tablets 135 tablet 3 06/201606/12/2017 tabletIndications: (30 mg) by mouth Anxiety daily DULoxetine (CYMBALTA) 30 Take 1 capsule (30 180 capsule 2 05/14/2017 MG EC capsuleIndications: mg) by mouth 2 Fibromyalgia times daily estradiol (ESTRACE) 0.1 Place 2 g 42.5 g 12/22/2015 1 MG/GM vaginal vaginally each creamIndications: night for 2 weeks, Symptomatic menopausal or then use three female climacteric states times weekly fluticasone (FLONASE) 50 [place] 1-2 sprays 3 Bottle 3 05/0306/12/2017 MCG/ACT nasal into both nostrils sprayIndications: daily Dysfunction of Eustachian tube, bilateral gabapentin (NEURONTIN) Take 2 capsules 180 capsule 11 016 11/01/2016 300 MG (600 mg) by mouth capsuleIndications: 3 times daily History of fusion of cervical spine, History of lumbar fusion, Chronic left-sided low back pain with left-sided sciatica loratadine (CLARITIN) 10 Take 10 mg by 0 04/09/2018 MG tablet mouth daily multivitamin, therapeutic Take 1 tablet by 0 10/14/2019 with minerals mouth daily (MULTI-VITAMIN) TABS omeprazole (PRILOSEC) 20 Take 2 capsules 180 capsule 3 03/2605/04/2017 MG capsuleIndications: (40 mg) by mouth Gastroesophageal reflux daily disease without esophagitis order for DMEIndications: Equipment being 1 Device 0 05/2204/09/2018 Peroneal tendon tear, ordered:knee left, subsequent roller. Will need encounter, Post-operative for 3 months state order for DMEIndications: Equipment being 2 Device 0 04/0404/09/2018 Pain in both feet, ordered: ankle Peroneal tendinitis of braces left lower extremity, Peroneal tendinitis of right lower extremity, Pes cavus, congenital, Venous insufficiency of both lower extremities, Fibromyalgia, Type 2 diabetes mellitus without complication, without long-term current use of insulin (H), Non morbid obesity, unspecified obesity type simvastatin (ZOCOR) 20 MG Take 1 tablet (20 90 tablet 3 07/201502/15/2017 tabletIndications: mg) by mouth At Hyperlipidemia LDL goal Bedtime <100 SUMAtriptan (IMITREX) 25 Take 1-2 tablets 18 tablet 3 03/2607/13/2017 MG tabletIndications: (25-50 mg) by Migraine without status mouth at onset of migrainosus, not headache for intractable, unspecified migraine May migraine type repeat in 2 hours. Max 8 tablets/24 hours. tiZANidine (ZANAFLEX) 4 Take 1-2 tablets 90 tablet 5 201512/10/2016 MG tabletIndications: (4-8 mg) by mouth Cervicalgia, History of 2 times daily as fusion of cervical spine, needed for muscle History of lumbar fusion spasms topiramate (TOPAMAX) 50 Take 1 tablet (50 180 tablet 3 10/1112/15/2016 MG tabletIndications: mg) by mouth 2 Fibromyalgia, Non morbid times daily obesity, unspecified obesity type documented as of this encounter Progress Notes Kalyan Epps RN - 10/17/2016 1:29 PM CDT Pre-procedure: Initial vital signs: BP 120/69, HR 110, RR 16 Allergies: reviewed Rhythm: Sinus Medications taken within 48 hours of procedure: NA Last Caffeine: morning Lung sounds: CTA, no wheezing, crackles or rtx Health History (COPD, Asthma, etc): NA Procedure: Lexiscan Reaction/symptoms after receiving Lesia injection: Shortness of breath, [place] Vital Signs:BP 113/63, HR 113, RR 18 Reversal agent: N/A Post: Resolution of symptoms?: YES Vital signs: BP 112/63, HR 107, RR 16 Walk: NO Return to Radiology documented in this encounter Plan of Treatment Not on filedocumented as of this encounter Procedures Procedure Name Priority Date/Time Associated Diagnosis Comme nts NM MPI WITH Routine 10/17/2016 2:34 PM Family history of [place] R esults for this LEXISCAN CDT (myocardial procedure are i n infarction) the results Atypical chest pain section. documented in this encounter Results NM Lexiscan stress test (10/17/2016 2:34 PM CDT) Anatomical Region Laterality Modality Chest Nuclear Medicine Specimen (Source) Anatomical Location Collection Method / Collectio n Time Received Time / Laterality Volume Narrative 10/17/2016 4:55 PM CDT GATED MYOCARDIAL PERFUSION SCINTIGRAPHY WITH INTRAVENOUS PHARMACOLOGIC VASODILATATION LEXISCAN -ONE DAY STUDY 10/17/2016 2:34 PM ??MEGAN CHOI ? ?51 years ??Female ??1965. Indication/Clinical History: Atypical ch est pain Impression 1. ??Myocardial perfusion imaging using single isotope technique demonstrated no significant perfusion de fect consistent with significant ischemia or infarct. There i s mild decrease in anterior activity on rest and stress images consi stent with soft tissue/breast attenuation artifact.. 2. Gated images demonstrated small left ventricle with vigorous overall contractility and no significant regional wall motion abnormality. ??The left ventricular syst olic function is hyperdynamic with ejection fraction 71%. 3. Compared to the prior study from not applicable . Procedure Pharmacologic stress testing was perform ed with Lexiscan at a rate of 0.08 mg/ml rapid bolus injection, for 15 seconds, 0.4 mg/5ml intravenously. Low-level exercise was no t performed along with the vasodilator infusion. ??The heart rate w as 80 at baseline and latoya to 113 beats per minute during the Lexiscan infusion. The rest blood pressure was 120/69 mmHg and was 113/63 mm Hg during Lexiscan infusion. The patient experienced shortn ess of breath, lightheadedness, headache ??during the t est. Myocardial perfusion imaging was perform ed at rest, approximately 45 minutes after the injection intravenousl y of 10.5 mCi of Tc-99m Myoview. At peak pharmacologic effect, 1 0-20 seconds after Lexiscan, the patient was injected intravenously w ith 30.5 mCi of ??Tc-99m Myoview. The post-stress tomographic cathy ging was performed approximately 60 minutes after stress. EKG Findings The resting EKG demonstrated normal sinu s rhythm with incomplete right bundle branch block and left axis deviat ion with poor R wave progression the right precordial leads. The stress EKG demonstrated sinus tachycardia with no significant ST depression. Tomographic Findings Overall, the study quality is adequate . On the stress images, there is no significant perfusion defect with mild decrease in anterior activity. On the rest images, there is n o significant perfusion defect with mild decrease in anterior activity . Gated images demonstrated small left ventricle with vigorous overa ll contractility and no significant regional wall motion abnorma lity. The left ventricular ejection fraction was calculated to be 7 1% with stress 74% rest. TID was absent. MARRY TRACEY MD Procedure Note Marry Tracey MD - 10/17/2016F ormatting of this note might be different from the original. GATED MYOCARDIAL PERFUSION SCINTIGRAPHY WITH INTRAVENOUS PHARMACOLOGIC VASODILATATION LEXISCAN -ONE DAY STUDY 10/17/2016 2:34 PM MGEANLAURA CHOI 51 years Female 1965. Indication/Clinical History: Atypical ch est pain Impression 1. Myocardial perfusion imaging using si ngle isotope technique demonstrated no significant perfusion de fect consistent with significant ischemia or infarct. There i s mild decrease in anterior activity on rest and stress images consi stent with soft tissue/breast attenuation artifact.. 2. Gated images demonstrated small left ventricle with vigorous overall contractility and no significant regional wall motion abnormality. The left ventricular systol ic function is hyperdynamic with ejection fraction 71%. 3. Compared to the prior study from not applicable . Procedure Pharmacologic stress testing was perform ed with Lexiscan at a rate of 0.08 mg/ml rapid bolus injection, for 15 seconds, 0.4 mg/5ml intravenously. Low-level exercise was no t performed along with the vasodilator infusion. The heart rate was 80 at baseline and latoya to 113 beats per minute during the Lexiscan infusion. The rest blood pressure was 120/69 mmHg and was 113/63 mm Hg during Lexiscan infusion. The patient experienced shortn ess of breath, lightheadedness, headache during the shirley t. Myocardial perfusion imaging was perform ed at rest, approximately 45 minutes after the injection intravenousl y of 10.5 mCi of Tc-99m Myoview. At peak pharmacologic effect, 1 0-20 seconds after Lexiscan, the patient was injected intravenously w ith 30.5 mCi of Tc-99m Myoview. The post-stress tomographic cathy ging was performed approximately 60 minutes after stress. EKG Findings The resting EKG demonstrated normal sinu s rhythm with incomplete right bundle branch block and left axis deviat ion with poor R wave progression the right precordial leads. The stress EKG demonstrated sinus tachycardia with no significant ST depression. Tomographic Findings Overall, the study quality is adequate . On the stress images, there is no significant perfusion defect with mild decrease in anterior activity. On the rest images, there is n o significant perfusion defect with mild decrease in anterior activity . Gated images demonstrated small left ventricle with vigorous overa ll contractility and no significant regional wall motion abnorma lity. The left ventricular ejection fraction was calculated to be 7 1% with stress 74% rest. TID was absent. MARRY RTACEY MD Vanda Guerrero MD IMG NM ORDERABLES documented in this encounter Visit Diagnoses Diagnosis Family history of [place] (myocardial infarct ion) Family history of ischemic heart disease Atypical chest pain Other chest pain documented in this encounter Administered Medications Inactive Administered Medications - up to 3 most recent administrations Medication Order MAR Action Action Date Dose Rate Site regadenoson (LEXISCAN) 0.4 MG/5ML Given 10/17/2016 1:27 PM CDT 0 .4 mg injection Starting on Sun10/17/16 at 1302, For 1 dose, Kalyan Epps : nancyinet override documented in this encounter Additional Health Concerns Assessment Noted Time PHQ-9 Depression Total Score: 9 10/12/2016 7:16 AM CDT documented as of this encounter Care Teams Director Property Relationship Specialty Start Date End Date Vanda Guerrero MD PCP - General Internal Medicine 04/08/15 01/08/19 [address] [facility] [place] [id number] Vanda Guerrero MD PCP - Assigned PCP 07/24/16 06/15/18 [address] [facility] [place] [id number] documented as of this encounter
--- OUTSIDE RECORDS SUMMARY | 2022-01-17 22:11 | XMS_ITS | Encounter Summary ---
:1965 Author Organization [place] Address [address] [place] [address] Care Team Providers Name Role Phone Vanda Guerrero MD Primary Care Provider [phone] Vanda Guerrero MD Unavailable Reason for Visit (Routine) - Closed Specialty Diagnoses / Procedures Referred By Contact Refer red To Contact Radiology / Radiology. Diagnoses EPIC ORDER SB PT PREP INFORMED Rh Nuclear Medicine Procedures NM MPI WITH LEXISCAN [address] [place] [address] Phone: Fax: Referral ID Status Reason Start Date Expiration Date Visits Requ ested Visits Authorized [id number] Closed 10/17/2016 10/17/2017 1 1 Encounter Details Date Type Department Care Team Description 10/17/[address] [facility] Vanda Guerrero [facility] [address] [facility] [address] [place], [place] [id number] (Wo rk) Social History Tobacco Use Types [...] How often do you attend catholic or baptism Patient refused 08/08/2019 services? Do you belong to any clubs or organizations such as No 08/08/2019 catholic groups, [employer], fraternal or athletic groups, or school groups? [...] capsule 8 capsule 0 017 01/02/2019 D3) 97417 UNITS (50,000 Units) by capsuleIndications: mouth once [...] climacteric states times weekly fluticasone (FLONASE) 50 [place] 1-2 sprays 3 Bottle 3 05/0306/12/2017 MCG/ACT [...] Routine 10/17/2016 2:34 PM Family history of [place] R esults for this LEXISCAN CDT (myocardial procedure are i n infarction) the results Atypical chest pain section. documented in this encounter Visit Diagnoses Not on filedocumented in this encounter Administered Medications Inactive Administered Medications - up to 3 most recent administrations Medication Order MAR Action Action Date Dose Rate Site technetium Tc 99m tetrofosmin Given 10/17/2016 2:32 PM CDT 30.5 mCi 2UD study (MYOVIEW) radioisotope injection 3-42 mCi 3-42 mCi, Intravenous, EVERY 2 HOURS, First dose on Sun10/17/16 at 1200, For 2 doses, Radioisotope, supplied by and administered by Nuclear Medicine. *HW* Given 10/17/2016 11:56 AM CDT 9.5 mCi documented in this encounter Additional Health Concerns Assessment Noted Time PHQ-9 Depression Total Score: 9 10/12/2016 7:16 AM CDT documented as of this encounter Care Teams [employer]ment [employer] Lacquer Mixer Relationship Specialty Start Date End Date Vanda Guerrero MD PCP - General Internal Medicine 04/08/15 01/08/19 [address] [facility] [place] [id number] Vanda Guerrero MD PCP - Assigned PCP 07/24/16 06/15/18 [address] [facility] [place] [id number] documented as of this encounter
--- OUTSIDE RECORDS SUMMARY | 2022-01-17 22:11 | XMS_ITS | Encounter Summary ---
:1965 Author Organization [facility] Address [address] [place] [id number] Care Team Providers Name Role Phone Vanda Guerrero MD Primary Care Provider [phone] Vanda Guerrero MD Unavailable Reason for Visit Reason Onset Date Comments Refill Request 12/10/2016 tiZANidine (ZANAFLEX ) 4 MG tablet Encounter Details Date Type Department Care Team Description 12/10/2016 Refill [facility] Vanda Guerrero R efill Request Clinic [facility] (tiZANidine (ZANAFLEX) [address] [facility] 4 MG tablet) [place] [address] [place] [address] [place] [address] [phone] Social History Tobacco Use Types Packs/Day Years [...] 08/08/2019 relatives? How often do you attend pentecostalism or gnosticist Patient refused 08/08/2019 services? Do you belong to any clubs or organizations such as No 08/08/2019 pentecostalism groups, unions, fraternal or athletic groups, or [...] this encounter Miscellaneous Notes Telephone Encounter - Mary Morales RN - 12/11/2016 3:41 PM CDT Routing refill request to provider for review/approval because: Drug not on the G refill protocol Telephone Encounter - Rossana Peres - 12/10/2016 7:45 PM CDT tiZANidine (ZANAFLEX) 4 MG tablet Last Written Prescription Date: 06/05/2016 Last Fill Quantity: 90, # refills: 5 Last Office Visit with [facility], [facility] or [facility] prescribing provider: 09/25/2016 Future Office visit: Next 5 appointments (look out 90 days) Dec 19, 2016 10:45 AM CDT Return Visit with Agatha Null DPM, Podiatry/Foot and Ankle Surgery [facility] [address] [place] [id number] Routing refill request to provider for review/approval because: Drug not on the [facility], [facility] or [facility] refill protocol or controlled [...] documented as of this encounter Care Teams Punch Hand Relationship Specialty Start Date End Date Vanda Guerrero MD PCP - General Internal Medicine 04/08/15 01/08/[address] [place] [address] [place] [id number] Vanda Guerrero MD PCP - Assigned PCP 07/24/16 06/15/[address] [place] [address] [place] [id number] documented as of this encounter
--- OUTSIDE RECORDS SUMMARY | 2022-01-17 22:11 | XMS_ITS | Encounter Summary ---
:1965 Author Organization [facility] Address [address] [place] [address] Care Team Providers Name Role Phone Vanda Guerrero MD Primary Care Provider [phone] Vanda Guerrero MD Unavailable Reason for Visit Reason Onset Date Comments Refill Request 08/17/2016 DULOXETINE 30MG Encounter Details Date Type Department Care Team Description 08/17/2016 Refill [facility] Vanda Guerrero R efill Request Clinic [place] (DULOXETINE 30MG) [address] [facility] [address] [place] [address] [place] [phone] Social History Tobacco Use Types Packs/Day Years [...] often do you attend jehovah's witness or hoahaoism Patient refused 08/08/2019 services? Do [...] Telephone Encounter - Kirsten Casillas RN - 08/18/2016 10:01 AM CST Prescription approved per [facility] Refill Protocol. Kirsten Casillas RN Triage Nurse SMAN/WOMAN Telephone Encounter - Marisa Matthew - 08/17/2016 11:01 AM CST DULOXETINE 30MG Last Written Prescription Date: 11/09/2015 Last Fill Quantity: 180, # refills: 2 Last Office Visit with [facility], [facility] or [facility] prescribing provider: 06/01/2016 BP Readings from Last 3 Encounters: 08/15/16 114/74 07/18/16 118/78 07/13/16 112/68 Pulse: (for Fetzima) Creatinine Date Value Ref Range Status 06/08/2016 0.74 0.52 - 1.04 mg/dL Final ] Last PHQ-9 score on record= PHQ-9 SCORE 05/01/2016 Total Score - Total Score MyChart 11 (Moderate depression) Total Score - SMAN/WOMAN documented in this encounter Plan of Treatment Not on filedocumented as of this encounter Visit Diagnoses Diagnosis Fibromyalgia Mylagia and myositis, unspecified documented in this encounter Additional Health Concerns Assessment Noted Time PHQ-9 Depression Total Score: 11 05/02/2016 7:09 AM CS T documented as of this encounter Care Teams Lamination Assembler Relationship Specialty Start Date End Date Vanda Guerrero MD PCP - General Internal Medicine 04/08/15 01/08/[address] [place] [address] [place] [id number] Vanda Guerrero MD PCP - Assigned PCP 07/24/16 06/15/[address] [place] [address] [place] [id number] documented as of this encounter
--- OUTSIDE RECORDS SUMMARY | 2022-01-17 22:11 | XMS_ITS | Encounter Summary ---
:1965 Author Organization [facility] Address [address] [place] [address] Care Team Providers Name Role Phone Vanda Guerrero MD Primary Care Provider [phone] Vanda Guerrero MD Unavailable Reason for Visit Reason Comments RECHECK pt still having some pain an d swelling where the incision was, gets more and more swollen throughout the day Encounter Details Date Type Department Care Team Description 12/19/2016 Office Visit [facility] Agatha Null, Left fo ot pain (Primary Dx); Clinic Rufus DPM, Podiatry/Foot Acute left ankle pain; [address] [facility] Type 2 diabetes mellitus without complic ation, without long-term current use of insulin (H); [place] [address] Edema of left lower extremity; [address] [address] Pes cavus, congenital [phone] [place], [place] [phone] (Wo rk) Social History Tobacco Use Types [...] 08/08/2019 relatives? How often do you attend synagogue or anabaptism Patient refused 08/08/2019 services? Do you belong to any clubs or organizations such as No 08/08/2019 synagogue groups, [employer], fraternal or athletic groups, or school groups? [...] Sign Reading Time Taken Comments Blood Pressure 118/76 12/19/2016 10:39 AM CDT Pulse - - Temperature - - Respiratory Rate - - Oxygen Saturation - - Inhaled Oxygen Concentration - - Weight 87.6 kg (193 lb 3.2 oz) 12/19/2016 10:39 AM CDT Height 157.5 cm (5' 2) 12/19/2016 10:39 AM CDT Body Mass Index 35.34 12/19/2016 10:39 AM CDT documented in this encounter Patient Instructions Patient InstructionsAgatha Null DPM, Podiatry/Foot and Ankle Surgery - 12/19/2016 10:[address] [facility] CLIN[facility] LOCATIONS: SUNDAY AM - MIN SUNDAY - [place] [address] [facility] [address] [place] [address] [place] [address] / FX [phone] / FX [phone] SUNDAY - [place] SUNDAY AM - [facility] [address] [address] [place] [address] [place] [address] / FX [phone] SUNDAY PM - [place] SCHEDULE SURGERY: [phone] BILLING QUESTIONS: [phone] [place] [address] AFTER HOURS: / FX [phone] APPOINTMENTS: [phone] DIABETES AND YOUR FEET Diabetes can result in several problems in the feet including ulcers (open sores) and amputations. Two of the most important reasons why people develop foot problems when they have diabetes is : 1. Neuropathy (loss of feeling) 2. Vascular disease (loss or decrease of blood flow). Neuropathy is a term used to describe a loss of nerve function. Patients with diabetes are at risk of developing neuropathy if their sugars continue to run high and are above the normal value. One theory for neuropathy is that the extra sugar in the body enters the nerves and is broken down. These by- products build up in the nerve causing it to swell and impairing nerve function. Often times, this can be prevented by controlling your sugars, dieting and exercise. When a person develops neuropathy, they usually begin to feel numbness or tingling in their feet andsometime in their legs. Other symptoms may include painful burning or hot feet, tingling or feeling like insects or ants are crawling on your feet or legs. If the diabetes is sever and the sugars run high for long periods of time, neuropathy can also occur in the hands. Vascular disease is a term used to describe a loss or decrease in circulation (blood flow). There alvino problem in getting blood and oxygen to areas that need it. Similar to neuropathy, sugars can buildup in the reyes of the arteries (blood vessels) and cause them to become swollen, thickened and hardened. This decreases the amount of blood that can go to an area that needs it. Though this is common in the legs of diabetic patients, it can also affect other arteries (blood vessels) in the body such as in the heart and eyes. In the legs, vascular disease usually results in cramping. Patients who develop leg cramps after walking the same distance every time (i.e. One block, half a mile, ect.) need to let their doctors know so that their circulation may be checked. Cramps causing severe pain in the feet and/or legs while sleeping and the cramps go away when you stand or hang your legs off the side of the bed, may also be asign of poor blood circulation. Occasional cramping in cold weather or on rare occasions with activity may not be due to poor circulation, but you should inform your doctor. PREVENTION OF THESE DISEASES The ma to prevention is good blood sugar control. Poor blood sugar control is a big reason many of these problems start. Physical activity (exercise) is a very good way to help decrease your blood sugars. Exercise can lower your blood sugar, blood pressure, and cholesterol. It also reduces your risk for heart disease and stroke, relieves stress, and strengthens your heart, muscles and bones. In addition, regular activity helps insulin work better, improves your blood circulation, and keeps your joints flexible. If you're trying to lose weight, a combination of exercise and cedeno food choices can help you reach your target weight and maintain it. PAIN MANAGEMENT 1.Blood Sugar Control - Most important 2. Medications such as: Amytriptylline, duloxetine, gabapentin, lyrica, tramadol 3. Nutritional therapy: Vitamin B6 (100mg daily), Vitamin B12 (75mcg daily), Vitamin D 2000 IU daily), Alpha-Lipoic Acid (600-1800mg daily), Mqmpfn-X-Azqjkzzcb (500-1000mg TID, L-methyl folate (1500mcgdaily) Metformin can block Vitamin B6 and B12 so it is important to supplement FOOT CARE RECOMMENDATIONS 1. Wash your feet with lukewarm water and a mild soap and then dry them thoroughly, especially between the toes. 2. Examine your feet daily looking for cuts, corns, blisters, cracks, ect, especially after wearingnew shoes. Make sure to look between your toes. If you cannot see the bottom of your feet, set a mirror on the floor and hold your foot over it, or ask a spouse, friend or family member to examine yourfeet for you. Contact your doctor immediately if new problems are noted or if sores are not healing. 3. Immediately apply moisturizer to the tops and bottoms of your feet, avoiding areas between the toes. Hand lotion (Intesive Care, Mishel, Eucerin, Neutrogena, Curel, ect) is sufficient unless your doctor prescribes a medicated lotion. Apply sunscreen to your feet when going swimming outside. 4. Use clean comfortable shoes, wear white socks (if you have any bleeding or drainage, you will see it on white socks). Socks should not have thick seams or cut off the circulation around the leg. Break in new shoes slowly and rotate with older shoes until broken in. Check the inside of your shoes with your hand to look for areas of irritation or objects that may have fallen into your shoes. 5. Keep slippers by the side of your bed for use during the night. 6. Shoes should be fitted by a professional and should not cause areas of irritation. Check your feet regularly when wearing a new pair of shoes and replace them as needed. 7. Talk to your doctor about proper exercise. Exercise and stretching stimulate blood flow to your feet and maintain proper glucose levels. 8. Monitor your blood glucose level as instructed by your doctor. Notify your doctor immediately ifyour blood sugar is abnormally high or low. 9. Cut your nails straight across, but then gently round any sharp edges with a cardboard nail file.If you have neuropathy, peripheral vascular disease or cannot see that well to trim your own toenails contact [facility] ([phone]) or [facility] ([phone]). THINGS TO AVOID DOING 1. Do not soak your feet if you have an open sore. Use only lukewarm water and always check the temperature with your hand as hot water can easily burn your feet. 2. Never use a hot water bottle or heating pad on your feet. Also do not apply cold compresses to your feet. With decreased sensation, you could burn or freeze your feet. 3. Do not apply any of these to your feet: - Over the counter medicine for corns or warts - Harsh chemicals like boric acid - Do not self-treat corns, cuts, blisters or infections. Always consult your doctor. 4. Do not wear sandals, slippers or walk barefoot, especially on hot sand or concrete or other harsh surfaces. 5. If you smoke, stop!!! Home Medical Equipment: 1. [facility] - [address] [facility] Hospital[facility] Review [facility], [phone] 2. [facility] -[address] [address]: [address] [place] 3. [place] (knee walkers and power scooters) - [address] [facility] [address] [place], or [address] [facility] Mahesh Ness, [phone]. 4. [facility] - [address], 5. [facility], [address] [place] [address]. Body Mass Index (BMI) Many things can cause foot and ankle problems. Foot structure, activity level, foot mechanics and injuries are common causes of pain. One very important issue that often goes unmentioned, is body weight. Extra weight can cause increased stress on muscles, ligaments, bones and tendons. Sometimes just a few extra pounds is all it takesto put one over her/his threshold. Without reducing that stress, it can be difficult to alleviate pain. Some people are uncomfortable addressing this issue, but we feel it is important for you to thinkabout it. As Foot & Ankle specialists, our job is addressing the lower extremity problem and possible causes. Regarding extra body weight, we encourage patients to discuss diet and weight management plans with their primary care doctors. It is this team approach that gives you the best opportunityfor pain relief and getting you back on your feet. CDT documented in this encounter Progress Notes Agatha Null DPM, Podiatry/Foot and Ankle Surgery - 12/19/2016 10:45 AM CDT Podiatry / Foot and Ankle Surgery Progress Note December 19, 2016 Subject: Patient was seen for follow up on left ankle had surgery several months ago and was doing well after last visit. Notes past 2 months has been having a lot of pain to the left foot and ankle, especially the pinky toe. Recalls being dragged by her dog a while ago. Did not notice anything moresignificant in pain after that but that is the only thing she recalls that could have been an issue.Pain is 8/10. Would like to know what can be done for it. Objective: Vitals: BP 118/76 Ht 5' 2 (1.575 m) Wt 193 lb 3.2 oz (87.6 kg) LMP 10/30/2011 BMI 35.34 kg/m2 BMI= Body mass index is 35.34 kg/(m^2). A1C: 6.1 General: Patient is alert and orientated. NAD Vascular: DP and PT pulses are palpable. Edema noted to left ankl. CFT's < 3secs. Skin temp is normal Neuro: Light and gross touch sensation intact to digits, dorsum, and plantar aspects of the feet. Derm: Skin is supple. No rashes, lesions, or ulcerations noted. Musculoskeletal: Pain on palpation along the left ankle incision and with pain on left 5th toe. Increase arch height. Assessment: Left foot pain Acute left ankle pain Type 2 diabetes mellitus without complication, without long-term current use of insulin (H) Edema of left lower extremity Pes cavus, congenital Plan: Recommend compression socks. Also recommend repeat MRI to assess if there is any change to tendon or possible stress fracture. If negative, could be scar tissue pinching on the nerve and would recommend PT with TENS. She does have a lot of back issues and is diabetic as well so there could be a nerve component to this. Will call her with MRI results. Agatha Null DPM, Podiatry/Foot and Ankle Surgery Weight management plan: Patient was referred to their PCP to discuss a diet and exercise plan. CDT documented in this encounter Nursing Notes Larry Michael - 12/19/2016 10:45 AM CDT Chief Complaint Patient presents with ??? RECHECK pt still having some pain and swelling where the incision was, gets more and more swollen throughout the day Initial BP 118/76 Ht 5' 2 (1.575 m) Wt 193 lb 3.2 oz (87.6 kg) LMP 10/30/2011 BMI 35.34 kg/m2 Estimated body mass index is 35.34 kg/(m^2) as calculated from the following: Height as of this encounter: 5' 2 (1.575 m). Weight as of this encounter: 193 lb 3.2 oz (87.6 kg). Medication Reconciliation: complete Larry Michael MA documented in this encounter Plan of Treatment Not on filedocumented as of this encounter Results MR Foot Left w/o [...] original. MR FOOT LEFT WITHOUT CONTRAST December 25 017 4:56 PM HISTORY: Assess for stress [...] Podiatry/Foot and Ankle Surgery IMG MRI ORDERABLES MR Ankle Left w/o Contrast (12/25/2016 4:56 PM CDT) Anatomical Region Laterality Modality Left Ankle, SUBRAD MR MSK, UMP MR MSK Ma gnetic Resonance Specimen (Source) Anatomical Location Collection Method / Collectio n Time Received Time / Laterality Volume Impressions 12/26/2016 7:58 AM CDT IMPRESSION: ?? 1. Postsurgical changes associated with the peroneal tendons. Micrometallic artifact partially obscure s the tendons. 2. Peroneus brevis tendon thickening and longitudinal splitting posterior and inferior to the lateral ma lleolus. No moe tendon rupture or discontinuity is demonstrated . 3. Peroneus longus tendon diffuse intras ubstance signal intensity as it courses inferior and distal to the la teral malleolus. Although it is uncertain whether this represents art ifact, postsurgical change, or tendinosis/partial tear, tendinosis/part ial tear is favored. Mild reactive marrow edema is noted in the ad jacent portion of the cuboid. 4. 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 ABRAHAM BAEZ MD Narrative 12/26/2016 7:58 AM CDT MR ANKLE LEFT WITHOUT CONTRAST December 25, 2016 4:56 PM HISTORY: Assess for recurrent peroneal t endon tear after surgery. Localized edema. Pain in left foot. Pain in left ankle and joints of left foot. Type 2 diabetes mellitus with out complications. TECHNIQUE: Sagittal and coronal T1 and i nversion recovery, and transverse proton density and T2 weighte d images. FINDINGS: Plantar Fascia: There is mild low signal intensity thickening of the plantar fascia suggesting mild chronic p lantar fasciitis, similar if not unchanged from 05/05/2016. 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 There is no associated marrow edema to suggest th is represents a pain generator. Mild marrow edema is noted al alex the plantar aspect of the cuboid adjacent to the peroneus longus t endon. This may represent mild reactive marrow edema. There is also mil d marrow edema in the lateral cuneiform adjacent to the third tarsomet atarsal joint, most likely degenerative. Marrow signal within the a nkle/hindfoot appears within normal limits. No talar dome osteochondr al lesion is demonstrated. Posterior Tibial and Flexor Tendons: No tear or tendinosis of the posterior tibial tendon, flexor digitoru m longus tendon, or flexor hallucis longus tendon. Peroneal Tendons: There is micrometallic artifact along the peroneal tendons inferior to the lateral malleolu s. The peroneus brevis tendon posterior and inferior to the lateral ma lleolus appears to be markedly thickened with probable longitudinal spl its. Additionally, there is diffuse intermediate signal intensity wi thin the peroneus longus tendon as it courses lateral and inferio r to the calcaneus/cuboid. It is uncertain whether this is related to artifact, postsurgical change, or tendinosis. Although the peroneal ret inaculum appears to be thickened, no lateral tendon subluxation is demonstrated. Achilles Tendon: No tear or tendinosis. Extensor Tendons: No tear tendinosis of the anterior tibial tendon extensor hallux longus tendons or extens or digitorum longus tendons. Lateral Ligaments: The anterior talofibu lar ligament appears intact. The calcaneofibular, posterior talofibul ar, and anterior tibiofibular ligaments appear intact. Medial Deltoid Ligamentous Complex: Inta ct. Joint space: No tibiotalar or subtalar j oint effusion. Additional Findings: No retrocalcaneal b ursitis. No mass within the tarsal tunnel. The sinus Tarsi is unrema rkable. Procedure Note Sridevi Baez MD - 12/26/2016Formatt ing of this note might be different from the original. MR ANKLE LEFT WITHOUT CONTRAST December 25, 2016 4:56 PM HISTORY: Assess for recurrent peroneal t endon tear after surgery. Localized edema. Pain in left foot. Pain in left ankle and joints of left foot. Type 2 diabetes mellitus with out complications. TECHNIQUE: Sagittal and coronal T1 and i nversion recovery, and transverse proton density and T2 weighte d images. FINDINGS: Plantar Fascia: There is mild low signal intensity thickening of the plantar fascia suggesting mild chronic p lantar fasciitis, similar if not unchanged from 05/05/2016. 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 There is no associated marrow edema to suggest th is represents a pain generator. Mild marrow edema is noted al alex the plantar aspect of the cuboid adjacent to the peroneus longus t endon. This may represent mild reactive marrow edema. There is also mil d marrow edema in the lateral cuneiform adjacent to the third tarsomet atarsal joint, most likely degenerative. Marrow signal within the a nkle/hindfoot appears within normal limits. No talar dome osteochondr al lesion is demonstrated. Posterior Tibial and Flexor Tendons: No tear or tendinosis of the posterior tibial tendon, flexor digitoru m longus tendon, or flexor hallucis longus tendon. Peroneal Tendons: There is micrometallic artifact along the peroneal tendons inferior to the lateral malleolu s. The peroneus brevis tendon posterior and inferior to the lateral ma lleolus appears to be markedly thickened with probable longitudinal spl its. Additionally, there is diffuse intermediate signal intensity wi thin the peroneus longus tendon as it courses lateral and inferio r to the calcaneus/cuboid. It is uncertain whether this is related to artifact, postsurgical change, or tendinosis. Although the peroneal ret inaculum appears to be thickened, no lateral tendon subluxation is demonstrated. Achilles Tendon: No tear or tendinosis. Extensor Tendons: No tear tendinosis of the anterior tibial tendon extensor hallux longus tendons or extens or digitorum longus tendons. Lateral Ligaments: The anterior talofibu lar ligament appears intact. The calcaneofibular, posterior talofibul ar, and anterior tibiofibular ligaments appear intact. Medial Deltoid Ligamentous Complex: Inta ct. Joint space: No tibiotalar or subtalar j oint effusion. Additional Findings: No retrocalcaneal b ursitis. No mass within the tarsal tunnel. The sinus Tarsi is unrema rkable. IMPRESSION: 1. Postsurgical changes associated with the peroneal tendons. Micrometallic artifact partially obscure s the tendons. 2. Peroneus brevis tendon thickening and longitudinal splitting posterior and inferior to the lateral ma lleolus. No moe tendon rupture or discontinuity is demonstrated . 3. Peroneus longus tendon diffuse intras ubstance signal intensity as it courses inferior and distal to the la teral malleolus. Although it is uncertain whether this represents art ifact, postsurgical change, or tendinosis/partial tear, tendinosis/part ial tear is favored. Mild reactive marrow edema is noted in the ad jacent portion of the cuboid. 4. 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 ABARHAM BAEZ MD Agatha Null DPM, Podiatry/Foot and Ankle Surgery IMG MRI ORDERABLES documented in this encounter Visit Diagnoses Diagnosis Left foot pain - Primary Pain in limb Acute left ankle pain Type 2 diabetes mellitus without complic ation, without long-term current use of insulin (H) Edema of left lower extremity Edema Pes cavus, congenital Talipes cavus Edema of left lower extremity Edema Left foot pain Pain in limb Acute left ankle pain Type 2 diabetes mellitus without complic ation, without long-term current use of insulin (H) Left foot pain Pain in limb Acute left ankle pain Type 2 diabetes mellitus without complic ation, without long-term current use of insulin (H) Edema of left lower extremity Edema documented in this encounter Additional Health Concerns Assessment Noted Time PHQ-9 Depression Total Score: 9 10/12/2016 7:16 AM CDT documented as of this encounter Care Teams Filing Machine Operator Relationship Specialty Start Date End Date Vanda Guerrero MD PCP - General Internal Medicine 04/08/15 01/08/[address] [facility] [address] ANAYA, DAVID [id number] Vanda Guerrero MD PCP - Assigned PCP 07/24/16 06/15/18 [address] [facility] [place] [address] documented as of this encounter
--- OUTSIDE RECORDS SUMMARY | 2022-01-17 22:11 | XMS_ITS | Encounter Summary ---
:1965 Author Organization [facility] Address [address] [place] [address] Care Team Providers Name Role Phone Vanda Guerrero MD Primary Care Provider [phone] Vanda Guerrero MD Unavailable Reason for Visit Reason Onset Date Comments Prior Auth - Medication 11/07/2016 omeprazole (PRIL OSEC) 20 MG capsule Encounter Details Date Type Department Care Team Description 11/07/2016 Telephone [facility] Vanda Guerrero [facility] Pino Toribio MD Medication (omeprazole [address] [place] [address] [facility] (PRIL OSEC) 20 MG [facility] [address] capsule) [address] [place] [address] [place] [id number] [phone] Social History Tobacco Use Types Packs/Day Years [...] 08/08/2019 relatives? How often do you attend buddhism or anabaptist Patient refused 08/08/2019 services? Do you belong to any clubs or organizations such as No 08/08/2019 buddhism groups, unions, fraternal or athletic groups, or [...] Notes Telephone Encounter - Lori Weber - 11/08/2016 10:33 AM CDT Called insurance and initiated PA over the phone, PA approved until 11/09/2019. Called pharmacy and notified them of approval, they will inform pt. Auth #: [id number] Lori Weber MA Telephone Encounter - Lori Weber - 11/07/2016 9:40 AM CDT Received notice from pharmacy that medication is not covered. Medication: omeprazole (PRILOSEC) 20 MG capsule Insurance phone # : [phone] BIN :[id number] PCN: BRYAN GROUPRX: [id number] documented in this encounter Plan of Treatment Not on filedocumented as of this encounter Visit Diagnoses Not on filedocumented in this encounter Additional Health Concerns Assessment Noted Time PHQ-9 Depression Total Score: 9 10/12/2016 7:16 AM CDT documented as of this encounter Care Teams Payer Specialist Relationship Specialty Start Date End Date Vanda Guerrero MD PCP - General Internal Medicine 04/08/15 01/08/19 [address] [facility] [place] [address] Vanda Guerrero MD PCP - Assigned PCP 07/24/16 06/15/18 [address] [facility] [place] [address] documented as of this encounter
--- OUTSIDE RECORDS SUMMARY | 2022-01-17 22:11 | XMS_ITS | Encounter Summary ---
:1965 Author Organization [facility] Address [address] [place] [address] Care Team Providers Name Role Phone Vanda Guerrero MD Primary Care Provider [phone] Vanda Guerrero MD Unavailable Reason for Visit Reason Comments Medication Refill [facility] 24 HOUR 10- 240 MG per 24 hr tablet Encounter Details Date Type Department Care Team Description 02/05/2017 Refill [facility] Vanda Guerrero M edication Refill ([facility] LORATADINE-D 24 HOUR [address] [facility] 10-24 0 MG per 24 hr [facility] tablet) [address] [place] [address] [place] [id number] [phone] Social History Tobacco Use Types Packs/Day Years [...] How often do you attend gnosticism or presybeterian Patient refused 08/08/2019 services? Do [...] Telephone Encounter - Liya Gonzalez RN - 02/06/2017 10:11 AM CDT Info sent . Thea Gonzalez RN [facility] [phone] Telephone Encounter - Marisa Matthew - 02/05/2017 1:50 PM CDT Duplicate. [facility] 24 HOUR 10-240 MG per 24 hr tablet was filled on 02/05/2017, qty 90 with 1 refills. documented in this encounter Plan of Treatment Not on filedocumented as of this encounter Visit Diagnoses Diagnosis Chronic seasonal allergic rhinitis, unsp ecified trigger documented in this encounter Additional Health Concerns Assessment Noted Time PHQ-9 Depression Total Score: 9 10/12/2016 7:16 AM CDT documented as of this encounter Care Teams Acute Care Physician Relationship Specialty Start Date End Date Vanda Guerrero MD PCP - General Internal Medicine 04/08/15 01/08/[address] [place] [address] [place] [id number] Vanda Guerrero MD PCP - Assigned PCP 07/24/16 06/15/[address] [place] [address] [place] [id number] documented as of this encounter
--- OUTSIDE RECORDS SUMMARY | 2022-01-17 22:11 | XMS_ITS | Encounter Summary ---
:1965 Author Organization [facility] Address [address] [place] [address] Care Team Providers Name Role Phone Vanda Guerrero MD Primary Care Provider [phone] Vanda Guerrero MD Unavailable Reason for Visit [facility] Physical Therapy (Routine) - Closed Specialty Diagnoses / Procedures Referred By Contact Refer red To Contact Physical Therapy Diagnoses new pt needs paperwork post peroneal tendon repair surgery left foot. / Agatha Null DPM, Pod @ [facility] Agatha Null DPM, Candy Disla, PT Procedures [facility] Podiatry/Foot and [facility] Ankle Surgery CENTER [address] [place] [address] [place] [address] [place] [address] Referral ID Status Reason Start Date Expiration Date Visits V isits Requested Authorized LINUS/BC/LFOOT Closed 07/03/2016 06/10/2017 20 18 Encounter Details Date Type Department Care Team Description 08/18/2016 [facility]; Rehabilitation PT Aftercare following surgery of [facility] Services [facility] [address] [facility] [address] [place] [address] [place] [phone] [address] Social History Tobacco Use Types Packs/Day [...] How often do you attend zoroastrian or rastafari Patient refused 08/08/2019 services? 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 Aftercare following surgery of the musculoskeletal system documented in this encounter Visit Diagnoses Diagnosis Ankle pain, left Pain in joint, ankle and foot Aftercare following surgery of the muscu loskeletal system Aftercare [facility], [facility] documented in this encounter Additional Health Concerns Assessment Noted Time PHQ-9 Depression Total Score: 11 05/02/2016 7:09 AM CS T documented as of this encounter Care Teams Enamel Sprayer Relationship Specialty Start Date End Date Vanda Guerrero MD PCP - General Internal Medicine 04/08/15 01/08/19 [address] [facility] [place] [id number] Vanda Guerrero MD PCP - Assigned PCP 07/24/16 06/15/[address] [place] [address] [place] [id number] documented as of this encounter
--- OUTSIDE RECORDS SUMMARY | 2022-01-17 22:11 | XMS_ITS | Encounter Summary ---
:1965 Author Organization [facility] Address [address] [place] [address] Care Team Providers Name Role Phone Vanda Guerrero MD Primary Care Provider Vanda Guerrero MD Unavailable Reason for Visit (Routine) - Closed Specialty Diagnoses / Procedures Referred By Contact Refer red To Contact Radiology / Radiology. Diagnoses EPIC ORDER, sb pt Rh [place] [address] [place] [address] [place] [address] Phone: Fax: Referral ID Status Reason Start Date Expiration Date Visits Requ ested Visits Authorized [id number] Closed 12/25/2016 12/22/2017 1 1 Encounter Details Date Type Department Care Team Description 12/25/2016 Hospital Encounter [facility] Agatha Null E leopoldo of left lower extremity; [facility] DPM, Left foot pain; [address] [facility]Foot and Acute le ft ankle pain; Drive [address] Ankle Surgery Type 2 diabetes mellitus without complic ation, without long-term current use of insulin (H) [place] [address] [place] [id number] [facility] [address] [place] [address] Social History Tobacco Use Types [...] How often do you attend samaritan or sikh Patient refused 08/08/2019 services? Do [...] capsule 8 capsule 0 017 01/02/2019 D3) 83186 UNITS (50,000 Units) by capsuleIndications: mouth once [...] or female climacteric states fluticasone (FLONASE) 50 [place] 1-2 sprays 3 Bottle 3 05/0306/12/2017 MCG/ACT [...] 4 Take 1-2 tablets 90 tablet 5 07/03/ 2017 05/05/2017 MG tabletIndications: (4-8 mg) by mouth 2 [...] Priority Date/Time Associated Diagnosis Comme nts MR ANKLE LEFT W/O Routine 12/25/2016 4:56 PM Edema of left low er Results for this CONTRAST CDT extremity procedure are in Left foot pain the results Acute left ankle section. 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 THOMPSON BAEZ MD Narrative 12/26/2016 7:58 AM CDT [...] sinus Tarsi is unrema rkable. 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 THOMPSON BAEZ MD Agatha Null DPM, Podiatry/Foot and Ankle Surgery IMG MRI ORDERABLES documented in this encounter Visit Diagnoses Diagnosis Edema of left lower extremity Edema Left foot pain Pain in limb Acute left ankle pain Type 2 diabetes mellitus without complic ation, without long-term current use of insulin (H) documented in this encounter Additional Health Concerns Assessment Noted Time PHQ-9 Depression Total Score: 9 10/12/2016 7:16 AM CDT documented as of this encounter Care Teams Administrative Supervisor Relationship Specialty Start Date End Date Vanda Guerrero MD PCP - General Internal Medicine 04/08/15 01/08/19 [address] [facility] [place] [id number] Vanda Guerrero MD PCP - Assigned PCP 07/24/16 06/15/18 [address] [facility] [place] [id number] documented as of this encounter
--- OUTSIDE RECORDS SUMMARY | 2022-01-17 22:11 | XMS_ITS | Encounter Summary ---
:1965 Author Organization [facility] Address [address] [place] [address] Care Team Providers Name Role Phone Vanda Borja MD Primary Care Provider [phone] Vanda Borja MD Unavailable Reason for Referral Med Therapy Management - Closed Specialty Diagnoses / Procedures Referred By Contact Refer red To Contact Diagnoses Fatigue, unspecified type Type 2 diabetes mellitus without complication, without long-term current use of insulin (H) Fibromyalgia Chronic pain of left ankle Vanda Borja MD [address] [place] [address] Referral ID Status Reason Start Date Expiration Date Visits Requ ested Visits Authorized [id number] Closed 09/25/2016 09/25/2017 1 1 Reason for Visit Reason Comments Diabetes Encounter Details Date Type Department Care Team Description 09/25/2016 Office Visit [facility] Vanda Borja Type 2 diabetes mellitus without complication, without long-term current use of insulin (H) (Primary Dx); Clinic Pino Toribio MD Moderate episode of recurrent major depr essive disorder (H); [address] [place] [address] Fibro myalgia; [facility] Chronic pain of left ankle; [address] [place] [address] Family history of [place] (myocardial infarct ion); [place] [address] Atypical chest pain; [phone] Fatigue, unspecified type; Seasonal allerg ic rhinitis due to pollen; Need for hepati tis C screening test; Vitamin D defic iency; Elevated alkali ne phosphatase level; Hypernatremia Social History Tobacco Use Types Packs/Day Years [...] How often do you attend sabianist or jainism Patient refused 08/08/2019 services? Do [...] Sign Reading Time Taken Comments Blood Pressure 110/62 09/25/2016 1:44 PM CDT Pulse 75 09/25/2016 1:44 PM CDT Temperature 36.5 ??C (97.7 ??F) 09/25/2016 1:44 PM CDT Respiratory Rate - - Oxygen Saturation 98% 09/25/2016 1:44 PM CDT Inhaled Oxygen Concentration - - Weight 86.6 kg (191 lb) 09/25/2016 1:44 PM CDT Height 157.5 cm (5' 2) 09/25/2016 1:44 PM CDT Body Mass Index 34.93 09/25/2016 1:44 PM CDT documented in this encounter Patient Instructions Patient InstructionsDuVanda skelton MD - 09/25/2016 1:40 PM CDT Increase your flonase to twice daily for the next few days. Start nasal saline rinses. Keep on claritin D. Expect 2 phone calls - one to set up a stress test in [place], the other to set up a visit with my pharmacist here. Labs today - will sent you MyChart with results documented in this encounter Progress Notes Vanda Borja MD - 09/25/2016 1:40 PM CDT SUBJECTIVE: Megan Choi is a 51 year old female who presents to clinic today for the following health issues: Diabetes Follow-up ?? Patient is checking blood sugars: once per day every few days. Numbers between 99-112 ?? Diabetic concerns: None ?? Symptoms of hypoglycemia (low blood sugar): shaky (left leg), dizzy ?? Paresthesias (numbness or burning in feet) or sores: some tingling in both feet, no sores. ?? Date of last diabetic eye exam: 08/2016, beginning of cataracts in left eye ?? Amount of exercise or physical activity: None ?? Problems taking medications regularly: No ?? Medication side effects: muscle aches and lightheadedness ?? Diet: regular (no restrictions) and low salt Wt Readings from Last 4 Encounters: 09/25/16 191 lb (86.6 kg) 08/15/16 191 lb (86.6 kg) 07/18/16 191 lb (86.6 kg) 07/13/16 191 lb (86.6 kg) Ankle pain after surgery. Undergoing rehab. Legs jerk and she feels jolts all over her body. Diffuse body pain all the time. Has had many medications added over the years for fibromyalgia - not sure what is helping and what is causing side effects. Hurts all the time, can't sleep. Dr Null gave her a handicap sign for surgery - available through December. Wondering about keeping her handicap parking sticker after December. Debating about surgery on the other foot. Would need the same surgery on the other side. Debating about having surgery. Right ear hurting - allergies have been severe the past few weeks. No fevers. Increased stress with one of her children recently moving back in after everyone had moved out. Chest pain - getting some stabbing substernal pain intermittently - comes on at rest. Not triggered by exertion, but she has not been exerting herself recently due to lower extremity pain and her recovery from ankle surgery. Denies associated breathing change, but does note dizziness. No palpitations.Strong family hx of early heart disease - including her siblings. Always tired. Complains of constant calf pain - tender to touch - doesn't change when she is active. Problem list and histories reviewed & adjusted, as indicated. Additional history: as documented Reviewed and updated as needed this visit by clinical staff Reviewed and updated as needed this visit by Provider ROS: Constitutional, HEENT, cardiovascular, pulmonary, gi and gu systems are negative, except as otherwise noted. OBJECTIVE: BP 110/62 (BP Location: Right arm, Patient Position: Chair, Cuff Size: Adult Regular) Pulse 75 Temp 97.7 ??F (36.5 ??C) (Oral) Ht 5' 2 (1.575 m) Wt 191 lb (86.6 kg) LMP 10/30/2011 SpO2 98% BMI 34.93 kg/m2 Body mass index is 34.93 kg/(m^2). GENERAL: alert, no distress, over weight and fatigued EYES: Eyes grossly normal to inspection, PERRL and conjunctivae and sclerae normal HENT: normal cephalic/atraumatic, both ears: clear effusion, nasal mucosa edematous , oropharynx clear and oral mucous membranes moist RESP: lungs clear to auscultation - no rales, rhonchi or wheezes CV: regular rates and rhythm, normal S1 S2, no S3 or S4, grade 2/6 systolic murmur heard best over the LUSB, peripheral pulses strong and no peripheral edema MS: diffuse tenderness over all muscle and joint groups without synovitis noted PSYCH: mentation appears normal, anxious and fatigued Diagnostic Test Results: pending ASSESSMENT/PLAN: ICD-10-CM 1. Type 2 diabetes mellitus without complication, without long-term current use of insulin (H) E11.9Albumin Random Urine Quantitative Comprehensive metabolic panel Hemoglobin A1c MED THERAPY MANAGE REFERRAL Has been well controlled, continue current meds 2. Moderate episode of recurrent major depressive disorder (H) F33.1 Increased stress recently contributing to worsening control, continue medications and follow 3. Fibromyalgia M79.7 MED THERAPY MANAGE REFERRAL Recommended MTM review of her medications in hopes of simplifying her fibromyalgia treatment meds todecrease side effects (fatigue, sedation, electric jolty sensation) 4. Chronic pain of left ankle M25.572 MED THERAPY MANAGE REFERRAL G89.29 5. Family history of [place] (myocardial infarction) Z82.49 NM Exercise stress test 6. Atypical chest pain R07.89 NM Exercise stress test Recommended stress imaging given strong family hx and multiple personal risk factors for heart disease 7. Fatigue, unspecified type R53.83 Comprehensive metabolic panel Vitamin D Deficiency TSH with free T4 reflex CBC with platelets MED THERAPY MANAGE REFERRAL Lab work up today 8. Seasonal allergic rhinitis due to pollen J30.1 Discussed increased use of nasal sprays, pollen avoidance measures. See Patient Instructions Vanda Borja MD [facility] documented in this encounter Nursing Notes Alix Santos MA - 09/25/2016 1:40 PM CDT Chief Complaint Patient presents with ??? Diabetes Initial BP 110/62 (BP Location: Right arm, Patient Position: Chair, Cuff Size: Adult Regular) Pulse 75 Temp 97.7 ??F (36.5 ??C) (Oral) Ht 5' 2 (1.575 m) Wt 191 lb (86.6 kg) LMP 10/30/2011 SpO2 98% BMI 34.93 kg/m2 Estimated body mass index is 34.93 kg/(m^2) as calculated from the following: Height as of this encounter: 5' 2 (1.575 m). Weight as of this encounter: 191 lb (86.6 kg). Medication Reconciliation: complete Alix Santos MA documented in this encounter Miscellaneous Notes Addendum Note - Vanda Borja MD - 09/27/2016 1:17 PM CDT Addended by: VANDA BORJA on: 09/27/2016 01:17 PM Modules accepted: Orders documented in this encounter Plan of Treatment Not on filedocumented as of this encounter Procedures Procedure Name Priority Date/Time Associated Comments Diagnosis HEPATITIS C SCREEN Routine 09/25/2016 2:30 PM Need for hepatit is Results for this REFLEX TO HCV RNA CDT C screening test proced ure are in QUANT AND GENOTYPE the resul ts section. VITAMIN D DEFICIENCY Routine 09/25/2016 2:30 PM Fatigue, R esults for this SCREENING CDT unspecified type procedure a re in the results section. TSH WITH FREE T4 Routine 09/25/2016 2:30 PM Fatigue, Resul ts for this REFLEX CDT unspecified type procedure a re in the results section. ALBUMIN RANDOM URINE Routine 09/25/2016 2:30 PM Type 2 diabete s Results for this QUANTITATIVE CDT mellitus without procedure a re in complication, the results without long-term section. current use of insulin (H) HEMOGLOBIN A1C Routine 09/25/2016 2:30 PM Type 2 diabetes Resu lts for this CDT mellitus without procedure a re in complication, the results without long-term section. current use of insulin (H) COMPREHENSIVE Routine 09/25/2016 2:30 PM Fatigue, Results for this METABOLIC PANEL CDT unspecified type procedure are in Type 2 diabetes the results mellitus without section. complication, without long-term current use of insulin (H) CBC WITH PLATELETS Routine 09/25/2016 2:30 PM Fatigue, Res ults for this CDT unspecified type procedure a re in the results section. documented in this encounter Results Vitamin D Deficiency (02/17/2017 9:13 AM CDT) P athologist Signature Vitamin D 33 20 - 75 02/19/2017 [facility] [place] ug/L 2:25 PM CDT IN MEDICAL [facility] Comment: Season, race, dietary intake, and treatm ent affect the concentration of 96-vdqrzaf-Umgcduy D. Values may decreas e during winter [...] Organization Address City/State/ZIP Code Phon e Number [facility] [address] [place], [place] [id number] [place] [address] (ABNORMAL) Comprehensive metabolic panel (02/17/2017 9:13 AM CDT) Analysis Performed At Patho logist Time Signature Sodium 145 (H) 133 - 144 02/17/2017 [place] mmol/L 2:[address] [facility] Potassium 3.9 3.4 - 5.3 02/17/2017 [place] mmol/L 2:[address] [facility] Chloride 111 (H) 94 - 109 02/17/2017 [facility] mmol/L 2:[address] [facility] Carbon Dioxide 28 20 - 32 02/17/2017 [place] mmol/L 2:14 PM [facility] Anion Gap 6 3 - 14 02/17/2017 [place] mmol/L 2:14 PM [facility] Glucose 137 (H) 70 - 99 02/17/2017 [place] mg/dL 2:14 PM [facility] Comment: Fasting specimen Urea Nitrogen 12 7 - 30 mg/dL 02/17/2017 2:14 PM CDT [facility] Creatinine 0.75 0.52 - 1.04 mg/dL 02/17/2017 2:14 PM CD T [facility] GFR Estimate 80 >60 mL/min/1.7m2 02/17/2017 2:14 PM C DT [facility] Comment: Non GFR Calc GFR Estimate If >90 >60 mL/min/1.7m2 02/17/2017 2:14 P M [facility] Black [facility] Comment: GFR Calc Calcium 9.1 8.5 - 10.1 02/17/2017 2:14 PM [facility] mg/dL [facility] Bilirubin Total 0.5 0.2 - 1.3 02/17/2017 2:14 PM [facility] mg/dL [facility] Albumin 3.5 3.4 - 5.0 g/dL 02/17/2017 2:14 PM [facility] Protein Total 7.3 6.8 - 8.8 g/dL 02/17/2017 2:14 PM FA [facility] Alkaline Phosphatase 169 (H) 40 - 150 U/L 02/17/2017 2:14 PM [facility] ALT 32 0 - 50 U/L 02/17/2017 2:14 PM [facility] AST 17 0 - 45 U/L 02/17/2017 2:14 PM [facility] Specimen Anatomical Collection Method Collection Time Receive d Time (Source) Location / / Volume Laterality Blood specimen 02/17/2017 9:13 AM 017 9:18 (specimen) CDT AM CDT Vanda Borja MD LAB - BLOOD ORDERABLES Performing Organization Address City/State/ZIP Code Phon e Number [facility] [address] [place] [address] Hepatitis C Screen Reflex to HCV RNA Quant and Genotype (09/25/2016 2:30 PM CDT) Component Value Ref Test Analysis Performed At [facility] gist Range Method Time Signature Hepatitis C Nonreactive NR [facility] Antibody Assay performance character istics have not been established for [facility], [place] MEDICAL infants, and children [facility] Specimen Anatomical Collection Method Collection Time Receive d Time (Source) Location / / Volume Laterality Blood specimen 09/25/2016 2:30 PM 017 (specimen) CDT 11:29 AM CDT Vanda Borja MD LAB - BLOOD ORDERABLES Performing Organization Address City/[facility]/ZIP Code Phon e Number [facility] [address] [place] [address] [facility] CBC with platelets (09/25/2016 2:30 PM CDT) P athologist Signature WBC 6.4 4.0 - 11.0 [facility]9/[facility] RBC Count 3.97 3.8 - 5.2 [facility] 10e12/L [facility] Hemoglobin 12.6 11.7 - [facility] 15.7 g/dL [facility] Hematocrit 38.1 35.0 - [facility] 47.0 % [facility] MCV 96 78 - 100 [facility] fl [facility] MCH 31.7 26.5 - [facility] 33.0 pg [facility] MCHC 33.1 31.5 - [facility] 36.5 g/dL [facility] RDW 13.8 10.0 - [facility] 15.0 % [facility] Platelet Count 229 150 - 450 [facility] 10e9/L [facility] Specimen Anatomical Collection Method Collection Time Receive d Time (Source) Location / / Volume Laterality Blood specimen 09/25/2016 2:30 PM 017 2:31 (specimen) CDT PM CDT Vanda Borja MD LAB - BLOOD ORDERABLES Performing Organization Address City/[facility]/ZIP Code Phon e Number [facility] [address] [place] [address] TSH with free T4 reflex (09/25/2016 2:30 PM CDT) athologist Signature TSH 1.80 0.40 - 4.00 [facility] mU/L [facility] Specimen Anatomical Collection Method Collection Time Receive d Time (Source) Location / / Volume Laterality Blood specimen 09/25/2016 2:30 PM 017 2:31 (specimen) CDT PM CDT Vanda Borja MD LAB - BLOOD ORDERABLES Performing Organization Address City/State/ZIP Code Phon e Number [facility] [address] [place] [address] Vitamin D Deficiency (09/25/2016 2:30 PM CDT) athologist Signature Vitamin D 25 20 - 75 [facility] Deficiency ug/L IN MEDICAL [facility] Comment: Season, race, dietary intake, and treatm ent affect the concentration of 65-rtqarpn-Tmmwgdr D. Values may decrea se during winter months and increase during summer months. Values 20-29 ug/L may indicate Vitamin D insufficiency and values <20 ug/L may indicate Vitami n D deficiency. Vitamin D determination is routinely pe rformed by an immunoassay specific for 25 hydroxyvitamin D3. ??If an individua l is on vitamin D2 (ergocalciferol) supplementation, please specify 25 [place] v itamin D2 and D3 level determination by LCMSMS test VITD23. Specimen Anatomical Collection Method Collection Time Receive d Time (Source) Location / / Volume Laterality Blood specimen 09/25/2016 2:30 PM 017 2:31 (specimen) CDT PM CDT Vanda Borja MD LAB - BLOOD ORDERABLES Performing Organization Address City/State/ZIP Code Phon e Number [facility] [address] [place] [address] [facility] Hemoglobin A1c (09/25/2016 2:30 PM CDT) athologist Signature Hemoglobin A1C 5.9 4.3 - 6.0 [facility] Specimen Anatomical Collection Method Collection Time Receive d Time (Source) Location / / Volume Laterality Blood specimen 09/25/2016 2:30 PM 017 2:31 (specimen) CDT PM CDT Vanda Borja MD LAB - BLOOD ORDERABLES Performing Organization Address City/State/ZIP Code Phon e Number [address] [address] (ABNORMAL) Comprehensive metabolic panel (09/25/2016 2:30 PM CDT) [facility] Method Time Signature Sodium 148 (H) 133 - 144 [place] mmol/L [facility] Potassium 4.5 3.4 - 5.3 [place] mmol/L [facility] Chloride 113 (H) 94 - 109 [place] mmol/L [facility] Carbon Dioxide 26 20 - 32 [place] mmol/L [facility] Anion Gap 9 3 - 14 [place] mmol/L [facility] Glucose 100 (H) 70 - 99 [place] mg/dL [facility] Urea Nitrogen 13 7 - 30 [place] mg/dL [facility] Creatinine 0.72 0.52 - [place] 1.04 mg/dL [facility] GFR Estimate 85 >60 [place] mL/min/1.[address] [facility] Comment: Non GFR Calc GFR Estimate If Black >90 >60 mL/min/1.7m2 F [facility] GFR Calc [facility] Calcium 9.3 8.5 - 10.1 mg/dL [place] CLIN ICS [facility] Bilirubin Total 0.2 0.2 - 1.3 mg/dL [facility] Albumin 3.7 3.4 - 5.0 g/dL [facility] S [facility] Protein Total 7.4 6.8 - 8.8 g/dL [place] CL INICS [facility] Alkaline Phosphatase 165 (H) 40 - 150 U/L [facility] ALT 28 0 - 50 U/L [facility] AST 17 0 - 45 U/L [facility] Specimen Anatomical Collection Method Collection Time Receive d Time (Source) Location / / Volume Laterality Blood specimen 09/25/2016 2:30 PM 017 2:31 (specimen) CDT PM CDT Vanda Borja MD LAB - BLOOD ORDERABLES Performing Organization Address City/State/ZIP Code Phon e Number [facility] [address] [place] [address] Albumin Random Urine Quantitative (09/25/2016 2:30 PM CDT) P athologist Signature Creatinine 128 mg/dL [place] Urine [facility] Albumin Urine 8 mg/L [place] mg/L [facility] Albumin Urine 5.96 0 - 25 [place] mg/g Cr mg/g Cr [facility] Specimen Anatomical Collection Method Collection Time Receive d Time (Source) Location / / Volume Laterality Urine specimen 09/25/2016 2:30 PM 017 2:31 (specimen) CDT PM CDT Vanda Borja MD LAB - URINE ORDERABLES Performing Organization Address City/State/ZIP Code Phon e Number [facility] [address] [place] [address] [phone] [facility] [address] [place] [place] [address], [facility] [phone] documented in this encounter Visit Diagnoses Diagnosis Type 2 diabetes mellitus without complic ation, without long-term current use of insulin (H) - Primary Moderate episode of recurrent major depr essive disorder (H) Fibromyalgia Mylagia and myositis, unspecified Chronic pain of left ankle Family history of [place] (myocardial infarct ion) Family history of ischemic heart disease Atypical chest pain Other chest pain Fatigue, unspecified type Seasonal allergic rhinitis due to pollen Need for hepatitis C screening test Special screening examination for other specified viral diseases Vitamin D deficiency Unspecified vitamin D deficiency Elevated alkaline phosphatase level Other nonspecific abnormal serum enzyme levels Hypernatremia Hyperosmolality and/or hypernatremia documented in this encounter Additional Health Concerns Assessment Noted Time PHQ-9 Depression Total Score: 11 05/02/2016 7:09 AM CS T documented as of this encounter Care Teams Director Of Sales Support Relationship Specialty Start Date End Date Vanda Borja MD PCP - General Internal Medicine 04/08/15 01/08/19 [address] [place] [address] Vanda Borja MD PCP - Assigned PCP 07/24/16 06/15/18 [address] [place] [address] documented as of this encounter
--- OUTSIDE RECORDS SUMMARY | 2022-01-17 22:11 | XMS_ITS | Encounter Summary ---
:1965 Author Organization [place] Address [address] [place] [id number] Care Team Providers Name Role Phone Vanda Guerrero MD Primary Care Provider [phone] Vanda Guerrero MD Unavailable Reason for Visit Reason Onset Date Comments Refill Request 11/29/2016 not needed - choleca lciferol (VITAMIN D3) 17227 UNITS capsule Encounter Details Date Type Department Care Team Description 11/29/2016 Refill M [facility] Vanda Guerrero Refill Request (not needed Clinic Pino Toribio MD - cholecalciferol (VITAMIN [address] D3) 5 0000 UNITS capsule) [facility] [address] [place] [address] [place] [phone] Social History Tobacco Use Types Packs/Day Years [...] often do you attend roman catholic or adventism Patient refused 08/08/2019 services? Do [...] encounter Miscellaneous Notes Telephone Encounter - Kallie Mishra RN - 11/30/2016 12:49 PM CDT Pharmacy calling to check on status. Informed that this was just an 8 week course & patient is due for follow up labs. She will inform the patient. I will also send a [employer] message. Telephone Encounter - Marisa Matthew - 11/29/2016 4:03 PM CDT cholecalciferol (VITAMIN D3) 45190 UNITS capsule Last Written Prescription Date: 09/27/2016 Last Fill Quantity: 8, # refills: 0 Last Office Visit with [facility], P or [facility] prescribing provider: 09/25/2016 documented in this encounter Plan of Treatment Not on filedocumented as of this encounter Visit Diagnoses Diagnosis Vitamin D deficiency Unspecified vitamin D deficiency documented in this encounter Additional Health Concerns Assessment Noted Time PHQ-9 Depression Total Score: 9 10/12/2016 7:16 AM CDT documented as of this encounter Care Teams Respiratory Therapy Instructor Relationship Specialty Start Date End Date Vanda Guerrero MD PCP - General Internal Medicine 04/08/15 01/08/19 [address] [facility] [place] [address] Vanda Guerrero MD PCP - Assigned PCP 07/24/16 06/15/18 [address] [facility] [place] [address] documented as of this encounter
--- OUTSIDE RECORDS SUMMARY | 2022-01-17 22:12 | XMS_ITS | Encounter Summary ---
:1965 Author Organization [facility] Address [facility] [place] [address] Care Team Providers Name Role Phone Vanda Guerrero MD Primary Care Provider [phone] Reason for Referral [facility] Physical Therapy - Closed Specialty Diagnoses / Procedures Referred By Contact Refer red To Contact Diagnoses Post-operative state Weakness Agatha Null, [facility], [facility] Surgery [address] [place] [address] [address] [place] [address] [place] [address] Phone: [phone] Referral ID Status Reason Start Date Expiration Date Visits Requ ested Visits Authorized [id number] Closed 06/20/2016 06/20/2017 1 1 ING BALL MOLD ASSEMBLER Reason for Visit Reason Comments Surgical Followup Left peroneal tendon repair and transfer Encounter Details Date Type Department Care Team Description 06/20/2016 Office Visit [facility] Agatha De Los Santos, Post-op erative state (Primary Dx); [facility] [place] DPM, Podiatry/Foot Weakness [address] [facility] [place] [address] [place] [address] [address] [place], [place] [id number] (Wo rk) Social History Tobacco Use Types [...] How often do you attend temple or catholic Patient refused 08/08/2019 services? Do [...] Sign Reading Time Taken Comments Blood Pressure 116/82 06/20/2016 10:07 AM BOWLING BALL MOLD ASSEMBLER Pulse - - Temperature - - Respiratory Rate - - Oxygen Saturation - - Inhaled Oxygen Concentration - - Weight 86.6 kg (191 lb) 06/20/2016 10:07 AM BOWLING BALL MOLD ASSEMBLER Height 157.5 cm (5' 2) 06/20/2016 10:07 AM BOWLING BALL MOLD ASSEMBLER Body Mass Index 34.93 06/20/2016 10:07 AM BOWLING BALL MOLD ASSEMBLER documented in this encounter Patient Instructions Patient InstructionsLarry Michael - 06/20/2016 10:20 AM CST 1. Can get foot wet. 2. Can start minimal weight bearing in boot and crutches in 3 weeks in the house. 3. Start PT in 2 weeks. 4. Follow up in 1month [facility] Schedule Sunday AM Sunday [facility] [address] [place] [address] [facility] [address] [place] [address] [facility] [address] [place] [address] Sunday PM & Sunday AM Sunday PM Surgery Scheduling Line: [phone] [facility] [place] [address] [place] [address] [facility] [address] [place] [address] Appointment [phone] General After Hours: Patient [phone] Scar Care Protocol Scarring is an unfortunate but unavoidable part of surgery. Every person scars differently and thereis no way to predict how an individual's final scar will look. Now that the sutures have been removed one can begin taking some steps to help minimize the appearance of scarring. Brief Summary of Wound Healing As soon as the skin is incised during surgery, the body is taking steps to prepare for healing. After about 3 days, the body has sent cells to the incision to begin the healing process. These cells, called fibroblasts, make collagen, a protein in the skin that helps provide strength. Once the skin hasbeen sufficiently strengthened, the sutures are removed. Over the next year, the body synthesizes new collagen and breaks down old collagen to help achieve a strong scar that allows the foot/ankle to function appropriately. This is where patients can help the appearance of the scar, as it will exchange consultant the next year. Scar Care 1. Do not expose the scar to the sun for 1 year. 2. Any sun exposure may permanently darken the appearance of the scar. 3. Wear shoes/socks or cover your scar with zinc oxide. 4. Massage the scar 2-3 times per day. Massage the entire length of the scar with gentle to moderate pressure. Pressure can help flatten the scar. 5. Lotion/Vitamin E helps keep the tissue soft. 6. Try over the counter scar products such as Mederma or Scar Zone. These are available at any pharmacy without a prescription. Patients must use these for extended periods of time (6-12 months) to see a difference. CST documented in this encounter Progress Notes Agatha Null DPM, Podiatry/Foot and Ankle Surgery - 06/20/2016 10:15 AM BOWLING BALL MOLD ASSEMBLER Podiatry / Foot and Ankle Surgery Progress Note June 20, 2016 Subject: Patient was seen for follow up on left foot surgery. Still notes pain to ankle but points more to heel are and ankle joint than incision/tendon area. Denies fever, chills, nausa. Has been compliant with non weight bearing. Notes UTI has resolved. Objective: Vitals: BP 116/82 mmHg Ht 5' 2 (1.575 m) Wt 191 lb (86.637 kg) BMI 34.93 kg/m2 LMP 10/30/2011 BMI= Body mass index is 34.93 kg/(m^2). General: Patient is alert and orientated. NAD Dressing is c/d/i. Incision is well approximated. Sutures intact. No redness, dehiscence or signs ofinfection. Swelling wnl. Assessment:? Post-operative state Plan:?? sutures removed. ?? patient can shower. Continue non weightbearing for 3 weeks, then can start minimal weight bearing in boot and crutches around the house. Will start PT in 2-3 weeks. Follow up in 1 month for reassessment. Was told to call with questions or concerns. Agatha Null DPM, Pod Weight management plan: Patient was referred to their PCP to discuss a diet and exercise plan. CST documented in this encounter Nursing Notes Larry Michael - 06/20/2016 10:11 AM CST Chief Complaint Patient presents with ??? Surgical Followup Left peroneal tendon repair and transfer Initial BP 116/82 mmHg Ht 5' 2 (1.575 m) Wt 191 lb (86.637 kg) BMI 34.93 kg/m2 LMP 10/30/2011 Estimated body mass index is 34.93 kg/(m^2) as calculated from the following: Height as of this encounter: 5' 2 (1.575 m). Weight as of this encounter: 191 lb (86.637 kg). BP completed using cuff size: regular Larry Michael MA ING BALL MOLD ASSEMBLER documented in this encounter Plan of Treatment Scheduled Referrals Name Type Priority Associated Diagnoses Order S chedule LINUS PT, HAND, AND Referral Routine Post-operative state Ordered: 06/20/2016 CHIROPRACTIC REFERRAL Weakness documented as of this encounter Visit Diagnoses Diagnosis Post-operative state - Primary Other postprocedural status Weakness Other malaise and fatigue documented in this encounter Additional Health Concerns Assessment Noted Time PHQ-9 Depression Total Score: 11 05/02/2016 7:09 AM CS T documented as of this encounter Care Teams Acid Cutter Relationship Specialty Start Date End Date Vanda Guerrero MD PCP - General Internal Medicine 04/08/15 01/08/19 [address] [facility] [place] [address] documented as of this encounter
--- OUTSIDE RECORDS SUMMARY | 2022-01-17 22:12 | XMS_ITS | Encounter Summary ---
:1965 Author Organization [facility] Address [address] [place] [address] Care Team Providers Name Role Phone Vanda Guerrero MD Primary Care Provider [phone] Vanda Guerrero MD Unavailable Reason for Visit Reason Comments Surgical Followup Left peroneal tendon repair and transfer DOS 06/08/16 Encounter Details Date Type Department Care Team Description 08/15/2016 Office Visit [facility] Agatha Null, Post-op erative state (Primary Dx); [facility] [place] DPM, Podiatry/Foot Type 2 diabetes mellitus wit hout complication, without long- term current use of insulin (H); [address] and Ankle Surgery Peroneal tendon tear, right, [place] [address] [place] [address] [facility] [address] [place], [place] [address] (Wo rk) Social History Tobacco Use Types [...] How often do you attend moravian or latter day Patient refused 08/08/2019 services? Do you belong [...] Sign Reading Time Taken Comments Blood Pressure 114/74 08/15/2016 9:54 AM CLIENT CARE CONSULTANT Pulse - - Temperature - - Respiratory Rate - - Oxygen Saturation - - Inhaled Oxygen Concentration - - Weight 86.6 kg (191 lb) 08/15/2016 9:54 AM CLIENT CARE CONSULTANT Height 157.5 cm (5' 2) 08/15/2016 9:54 AM CLIENT CARE CONSULTANT Body Mass Index 34.93 08/15/2016 9:54 AM CLIENT CARE CONSULTANT documented in this encounter Patient Instructions Patient InstructionsLarry Michael - 08/15/2016 10:[address] [facility] Schedule Follow up in 2 months Sunday AM Sunday [facility] [address] [place] [address] [facility] [address] [place] [address] [facility] [address] [place] [address] Sunday PM & Sunday AM Sunday PM Surgery Scheduling Line: [phone] [facility] [place] [address] [place] [address] [facility] [address] [place] [address] Appointment [phone] General After Hours: Patient [phone] To Schedule surgery, Call: [phone] NT CARE CONSULTANT documented in this encounter Progress Notes Agatha Null, DPM, Podiatry/Foot and Ankle Surgery - 08/15/2016 10:00 AM CLIENT CARE CONSULTANT Podiatry / Foot and Ankle Surgery Progress Note August 15, 2016 Subject: Patient was seen for follow up on left ankle surgery. Notes that she is doing well. Minimalpain. Much better that before surgery. Physical therapy has been going well. Objective: Vitals: BP 114/74 Ht 5' 2 (1.575 m) Wt 191 lb (86.6 kg) LMP 10/30/2011 BMI 34.93 kg/m2 BMI= Body mass index is 34.93 kg/(m^2). General: Patient is alert and orientated. NAD Incision is healed. Muscle strength is improving. Minimal pain with eversion. Ankle brace on the right ankle. Assessment: Post-operative state Type 2 diabetes mellitus without complication, without long-term current use of insulin (H) Peroneal tendon tear, right, subsequent encounter Plan: At this time, will star gradual weight bearing in shoes. Continue strengthening with PT. Follow up in 2 months to discussed possible right peroneal tendon repair. Call with questions or concerns. Agatha Null DPM, Podiatry/Foot and Ankle Surgery Weight management plan: Patient was referred to their PCP to discuss a diet and exercise plan. CST documented in this encounter Nursing Notes Larry Michael - 08/15/2016 10:00 AM CST Chief Complaint Patient presents with ??? Surgical Followup Left peroneal tendon repair and transfer DOS 06/08/16 Initial BP 114/74 Ht 5' 2 (1.575 m) Wt 191 lb (86.6 kg) LMP 10/30/2011 BMI 34.93 kg/m2 Estimated body mass index is 34.93 kg/(m^2) as calculated from the following: Height as of this encounter: 5' 2 (1.575 m). Weight as of this encounter: 191 lb (86.6 kg). Medication Reconciliation: complete Larry Michael MA NT CARE CONSULTANT documented in this encounter Plan of Treatment Not on filedocumented as of this encounter Visit Diagnoses Diagnosis Post-operative state - Primary Other postprocedural status Type 2 diabetes mellitus without complic ation, without long-term current use of insulin (H) Peroneal tendon tear, right, subsequent encounter documented in this encounter Additional Health Concerns Assessment Noted Time PHQ-9 Depression Total Score: 11 05/02/2016 7:09 AM CS T documented as of this encounter Care Teams Syruper Relationship Specialty Start Date End Date Vanda Guerrero MD PCP - General Internal Medicine 04/08/15 01/08/19 [address] [facility] [place] [address] Vanda Guerrero MD PCP - Assigned PCP 07/24/16 06/15/18 [address] [facility] [place] [address] documented as of this encounter
--- OUTSIDE RECORDS SUMMARY | 2022-01-17 22:12 | XMS_ITS | Encounter Summary ---
:1965 Author Organization [facility] Address [address] [place] [id number] Care Team Providers Name Role Phone Vanda Guerrero MD Primary Care Provider [phone] Reason for Visit Auth/Cert Specialty Diagnoses / Procedures Referred By Contact Refer red To Contact Surgery Diagnoses Peroneal Tendon tear Rh Periop Services Procedures REPAIR TENDON PERONEAL [address] [place], [place] [phone] Fax: Referral ID Status Reason Start Date Expiration Date Visits Requ ested Visits Authorized [id number] 1 1 Encounter Details Date Type Department Care Team Description 06/08/2016 Hospital Encounter [facility] Agatha Nieves P ost-operative state (Primary Dx); [facility] PreOP/PostOP DPM, Peroneal tendon tear, left, subsequent encounter; [address] Podiatry/Foot and Type 2 diabetes mellitus wit hout complication, without long- term current use of insulin (H) [place], [place] Ankle Surgery [id number] [id number] [phone] [address] [place], [place] [phone] Social History Tobacco Use Types Packs/Day Years [...] How often do you attend faith or yazidism Patient refused 08/08/2019 services? Do you belong to any clubs or organizations such as No 08/08/2019 faith groups, [employer], fraternal or athletic groups, or school groups? [...] Sign Reading Time Taken Comments Blood Pressure 122/69 06/08/2016 1:00 PM TELEPHONE LINEWORKER Pulse - - Temperature 36.8 ??C (98.2 ??F) 06/08/2016 1:00 PM TELEPHONE LINEWORKER Respiratory Rate 16 06/08/2016 12:59 PM TELEPHONE LINEWORKER Oxygen Saturation 95% 06/08/2016 1:20 PM TELEPHONE LINEWORKER Inhaled Oxygen Concentration - - Weight 87.1 kg (192 lb 1.6 oz) 06/08/2016 8:52 AM TELEPHONE LINEWORKER Height 157.5 cm (5' 2) 06/08/2016 8:52 AM TELEPHONE LINEWORKER Body Mass Index 35.14 06/08/2016 8:52 AM TELEPHONE LINEWORKER documented in this encounter Discharge Instructions Discharge InstructionsHortencia Sawyer RN - 06/08/2016 11:42 AM CST GENERAL ANESTHESIA OR SEDATION ADULT DISCHARGE INSTRUCTIONS SPECIAL PRECAUTIONS FOR 24 HOURS AFTER SURGERY IT IS NOT UNUSUAL TO FEEL LIGHT-HEADED OR FAINT, UP TO 24 HOURS AFTER SURGERY OR WHILE TAKING PAIN MEDICATION. IF YOU HAVE THESE SYMPTOMS; SIT FOR A FEW MINUTES BEFORE STANDING AND HAVE SOMEONE ASSIST YOU WHEN YOU GET UP TO WALK OR USE THE BATHROOM. YOU SHOULD REST AND RELAX FOR THE NEXT 24 HOURS AND YOU MUST MAKE ARRANGEMENTS TO HAVE SOMEONE STAY WITH YOU FOR AT LEAST 24 HOURS AFTER YOUR DISCHARGE. AVOID HAZARDOUS AND STRENUOUS ACTIVITIES. DO NOTMAKE IMPORTANT DECISIONS FOR [address] ANY VEHICLE OR OPERATE MECHANICAL EQUIPMENT FOR 24 HOURS FOLLOWING THE END OF YOUR SURGERY. EVEN THOUGH YOU MAY FEEL NORMAL, YOUR REACTIONS MAY BE AFFECTED BY THE MEDICATION YOU HAVE RECEIVED. DO NOT DRINK ALCOHOLIC BEVERAGES FOR 24 HOURS FOLLOWING YOUR SURGERY. DRINK CLEAR LIQUIDS (APPLE JUICE, JL EMILIA, 7-UP, BROTH, ETC.). PROGRESS TO YOUR REGULAR DIET YOU FEEL ABLE. YOU MAY HAVE A DRY MOUTH, A SORE THROAT, MUSCLES ACHES OR TROUBLE SLEEPING. THESE SHOULD GO AWAY AFTER 24 HOURS. CALL YOUR DOCTOR FOR ANY OF THE FOLLOWING: SIGNS OF INFECTION (FEVER, GROWING TENDERNESS AT THE SURGERY SITE, A LARGE AMOUNT OF DRAINAGE OR BLEEDING, SEVERE PAIN, FOUL-SMELLING DRAINAGE, REDNESS OR SWELLING. IT HAS BEEN OVER 8 TO 10 HOURS SINCE SURGERY AND YOU ARE STILL NOT ABLE TO URINATE (PASS WATER). You received Toradol, an IV form of ibuprofen (Motrin) at 1015. Do not take any ibuprofen products until 3:15 pm. PHONE LINEWORKER documented in this encounter Medications at Time of Discharge Medication Sig Dispensed Refills Start Date End Date JAY/ARB NOT PRESCRIBED, 1 each daily JAY & 0 04/11 INTENTIONAL,Indications: ARB not prescribed Type 2 diabetes, HbA1c due to not needed goal < 7% (H), Hypertension goal BP (blood pressure) < 130/80 ASPIRIN PO Take 81 mg by mouth 0 daily. blood glucose (ACCU-CHEK 1 strip by In Vitro 100 strip 0 JANICE) test route 2 times daily stripIndications: Type 2 diabetes, HbA1c goal < 7% (H) enoxaparin (LOVENOX) 80 Inject 0.87 mLs (87 8.7 mL 0 06/18/2016 MG/0.8ML mg) Subcutaneous injectionIndications: daily for 10 days Post-operative state, Peroneal tendon tear, left, subsequent encounter, Type 2 diabetes mellitus without complication, without long-term current use of insulin (H) JAY NOT PRESCRIBED, JAY Inhibitor not 0 each 0 6 10/11/2016 INTENTIONAL,Indications: prescribed due to Type 2 diabetes mellitus Symptomatic without complication (H) hypotension not due to excessive diuresis blood glucose (ONE TOUCH Use to test blood 100 strip 0 09/1009/19/2016 ULTRA) test sugars 1 times stripIndications: Type 2 daily or as diabetes, HbA1c goal < directed. 7% (H) blood glucose monitoring Use to test blood 1 Box 11 04/1206/16/2020 (ACCU-CHEK MULTICLIX) sugar 2 times daily lancetsIndications: Type or as directed. 2 diabetes, HbA1c goal < 7% (H) blood glucose monitoring Use to test blood 1 Box 0 09/1010/06/2016 (ONE TOUCH DELICA) sugars 1 times lancetsIndications: Type daily or as 2 diabetes, HbA1c goal < directed. 7% (H) blood glucose monitoring Use to test blood 1 kit 0 09/1010/11/2016 (ONE TOUCH ULTRA 2) sugars 1 times meter device daily or as kitIndications: Type 2 directed. diabetes, HbA1c goal < 7% (H) citalopram (CELEXA) 20 Take 1 tablet (20 90 tablet 3 201507/12/2016 MG tabletIndications: mg) by mouth daily Anxiety DULoxetine (CYMBALTA) 30 Take 1 capsule (30 180 capsule 2 08/17/2016 MG capsuleIndications: mg) by mouth 2 Fibromyalgia times daily estradiol (ESTRACE) 0.1 Place 2 g vaginally 42.5 g 11 04/09/2018 MG/GM vaginal each night for 2 creamIndications: weeks, then use Symptomatic menopausal three times weekly or female climacteric states fluticasone (FLONASE) 50 [place] 1-2 sprays 3 Bottle 3 05/0306/12/2017 MCG/ACT nasal into both nostrils sprayIndications: daily Dysfunction of Eustachian tube, bilateral gabapentin (NEURONTIN) Take 2 capsules 180 capsule 11 016 11/01/2016 300 MG (600 mg) by mouth 3 capsuleIndications: times daily History of fusion of cervical spine, History of lumbar fusion, Chronic left-sided low back pain with left-sided sciatica loratadine-pseudoePHEDri Take 1 tablet by 90 tablet 3 02/2210/11/2016 ne (CLARITIN-D 24-HOUR) mouth daily 10-240 MG per tabletIndications: Seasonal allergic rhinitis metFORMIN (GLUCOPHAGE) Take 1 tablet (500 180 tablet 1 03/0808/30/2016 500 MG mg) by mouth 2 tabletIndications: Type times daily (with 2 diabetes mellitus meals) without complication (H) multivitamin, Take 1 tablet by 0 10/13 therapeutic with mouth daily minerals (MULTI-VITAMIN) TABS omeprazole (PRILOSEC) 20 Take 2 capsules (40 180 capsule 3 1 05/04/2017 MG capsuleIndications: mg) by mouth daily Gastroesophageal reflux disease without esophagitis ondansetron (ZOFRAN-ODT) Take 2 tablets (8 12 tablet 0 05/1210/11/2016 4 MG ODT tabIndications: mg) by mouth every Post-operative state, 8 hours as needed Peroneal tendon tear, for nausea Dissolve left, subsequent ON the tongue. encounter order for Equipment being 1 Device 0 [...] (H), Non morbid obesity, unspecified obesity type oxyCODONE (ROXICODONE) 5 Take 1-2 tablets 40 tablet 0 06/0807/13/2016 MG IR tabletIndications: (5-10 mg) by mouth Post-operative state, every 3 hours as Peroneal tendon tear, needed for pain or left, subsequent other (Moderate to encounter Severe) senna-docusate Take 1-2 tablets by 30 tablet 0 06/08/2016 0 09/25/2016 (SENOKOT-S;PERICOLACE) mouth 2 times daily 8.6-50 MG per Take while on oral tabletIndications: narcotics to Post-operative state, prevent or treat Peroneal tendon tear, constipation. left, subsequent encounter simvastatin (ZOCOR) 20 Take 1 tablet (20 [...] 201512/10/2016 MG tabletIndications: (4-8 mg) by mouth 2 Cervicalgia, History of times daily as fusion of cervical needed for muscle spine, History of lumbar spasms fusion topiramate (TOPAMAX) 50 Take 3 tablets (150 270 tablet 3 10/11/2016 MG tabletIndications: mg) by mouth daily Fibromyalgia, Non morbid obesity, unspecified obesity type documented as of this encounter H&P Notes Linda Hobson - 06/07/2016 10:45 AM CST This note is for the purpose of making the H&P performed in clinic within the last 30 days available in the hospital surgical encounter. PHONE LINEWORKER Source Note - Noreen Corbett MD - 06/01/2016 10:17 AM TELEPHONE LINEWORKER [place] [id number] [facility] [address] [facility] [address] Dept: [phone] PRE-OP EVALUATION: Today's date: 06/01/2016 Megan Wong (: 1965) presents for pre-operative evaluation assessment as requested by Dr. Nieves. She requires evaluation and anesthesia risk assessment prior to undergoing surgery/procedure for treatment of left ankle . Proposed procedure: repair of tendon in left ankle Date of Surgery/ Procedure: 06/08/16 Time of Surgery/ Procedure: 10:10am Hospital/Surgical Facility: [facility] Primary Physician: Vanda Guerrero Type of Anesthesia Anticipated: General Patient has a Health Care Directive or Living Will: NO 1. NO - Do you have a history of heart attack, stroke, stent, bypass or surgery on an artery in the head, neck, heart or legs? 2. NO - Do you ever have any pain or discomfort in your chest? 3. NO - Do you have a history of Heart Failure? 4. NO - Are you troubled by shortness of breath when: walking on the level, up a slight hill or at night? 5. NO - Do you currently have a cold, bronchitis or other respiratory infection? 6. NO - Do you have a cough, shortness of breath or wheezing? 7. NO - Do you sometimes get pains in the calves of your legs when you walk? 8. YES - DO YOU OR ANYONE IN YOUR FAMILY HAVE PREVIOUS HISTORY OF BLOOD CLOTS? Personal history of blood clot in left leg - 2007 (after surgery) 9. NO - Do you or does anyone in your family have a serious bleeding problem such as prolonged bleeding following surgeries or cuts? 10. NO - Have you ever had problems with anemia or been told to take iron pills? 11. NO - Have you had any abnormal blood loss such as black, tarry or bloody stools, or abnormal vaginal bleeding? 12. NO - Have you ever had a blood transfusion? 13. NO - Have you or any of your relatives ever had problems with anesthesia? 14. NO - Do you have sleep apnea, excessive snoring or daytime drowsiness? 15. NO - Do you have any prosthetic heart valves? 16. NO - Do you have prosthetic joints? 17. NO - Is there any chance that you may be ? Kallie Blanco ma HPI: Brief HPI related to upcoming procedure: Patient with longstanding pain in ankle > 6 months and found to have peroneal tears bilateral, but left side worse than right now. See problem list for active medical problems. Problems all longstanding and stable, except as noted/documented. See ROS for pertinent symptoms related to these conditions. . DIABETES - Patient has a longstanding history of DiabetesType Type II . Patient is being treated with oral agents and denies significant side effects. Control has been good. Complicating factors include but are not limited to: none. Stable on metformin. Last A1C 6.1 on 03/23/16. . MEDICAL HISTORY: Patient Active Problem List Diagnosis Date Noted ??? History of lumbar fusion 12/09/2014 ??? History of fusion of cervical spine 12/09/2014 ??? Anxiety 04/29/2014 ??? Major depressive disorder, recurrent (H) 05/29/2012 ??? Fibromyalgia 05/29/2012 ??? Low back pain 11/15/2011 Diagnosis updated by automated process. Provider to review and confirm. ??? Vulvar dystrophy 10/18/2011 ??? Seasonal allergic rhinitis 05/05/2011 ? ? Hyperlipidemia LDL goal <100 02/15/2010 ??? Type 2 diabetes mellitus without complication (H) 01/28/2010 ??? Upper back pain 01/18/2010 ??? Insomnia 01/12/2010 ??? Cervical pain 11/24/2009 ??? Migraine headache 04/13/2008 Dr. Martinez, neurology (Problem list name updated by automated process. Provider to review and confirm.) ??? GERD (gastroesophageal reflux disease) 04/13/2008 ??? Obesity 04/13/2008 ??? Family history of KS (myocardial infarction) 04/13/2008 At early age, father KS at age 40 Past Medical History Diagnosis Date ??? Dvt femoral (deep venous thrombosis) (H) 04/17 post surgical, stopped coumadin 01/16 ??? IFG (impaired fasting glucose) 10/03/2015 ??? Diabetes mellitus (H) Type 2 ??? Arthritis Past Surgical History Procedure Laterality Date ??? C spinal fusion,ant,ea adnl level 2004 L5, S1, Repeated in 2005 ??? C spinal fusion,ant,ea adnl level 2006 SI joints ??? C spinal fusion,ant,ea adnl level 2000 C5-C7 fused ??? section ??? Ent surgery T&A < 10 y/o Current Outpatient Prescriptions Medication Sig Dispense Refill ??? citalopram (CELEXA) 20 MG tablet Take 1 tablet (20 mg) by mouth daily 90 tablet 3 ??? fluticasone (FLONASE) 50 MCG/ACT nasal spray [place] 1-2 sprays into both nostrils daily 3 Bottle 3 ??? omeprazole (PRILOSEC) 20 MG capsule Take 2 capsules (40 mg) by mouth daily 180 capsule 3 ??? SUMAtriptan (IMITREX) 25 MG tablet Take 1-2 tablets (25-50 mg) by mouth at onset of headache formigraine May repeat in 2 hours. Max 8 tablets/24 hours. 18 tablet 3 ??? metFORMIN (GLUCOPHAGE) 500 MG tablet Take 1 tablet (500 mg) by mouth 2 times daily (with meals) 180 tablet 1 ??? loratadine-pseudoePHEDrine (CLARITIN-D 24-HOUR) 10-240 MG per tablet Take 1 tablet by mouth daily 90 tablet 3 ??? simvastatin (ZOCOR) 20 MG tablet Take 1 tablet (20 mg) by mouth At Bedtime 90 tablet 3 ??? tiZANidine (ZANAFLEX) 4 MG tablet Take 1-2 tablets (4-8 mg) by mouth 2 times daily as needed formuscle spasms 90 tablet 5 ??? topiramate (TOPAMAX) 50 MG tablet Take 3 tablets (150 mg) by mouth daily 270 tablet 3 ??? estradiol (ESTRACE) 0.1 MG/GM vaginal cream Place 2 g vaginally each night for 2 weeks, then usethree times weekly 42.5 g 11 ??? DULoxetine (CYMBALTA) 30 MG capsule Take 1 capsule (30 mg) by mouth 2 times daily 180 capsule 2 ??? gabapentin (NEURONTIN) 300 MG capsule Take 2 capsules (600 mg) by mouth 3 times daily 180 capsule 11 ??? multivitamin, therapeutic with minerals (MULTI-VITAMIN) TABS Take 1 tablet by mouth daily ??? ASPIRIN PO Take 81 mg by mouth daily. ??? order for DME Equipment being ordered:knee roller. Will need for 3 months 1 Device 0 ??? order for DME Equipment being ordered: ankle braces 2 Device 0 ??? diclofenac (VOLTAREN) 1 % GEL Apply 2 grams to foot four times daily as needed for pain using enclosed dosing card. 100 g 1 ??? JAY NOT PRESCRIBED, INTENTIONAL, JAY Inhibitor not prescribed due to Symptomatic hypotension notdue to excessive diuresis 0 each 0 ??? blood glucose monitoring (ONE TOUCH ULTRA 2) meter device kit Use to test blood sugars 1 times daily or as directed. 1 kit 0 ??? blood glucose (ONE TOUCH ULTRA) test strip Use to test blood sugars 1 times daily or as directed. 100 strip prn ??? blood glucose monitoring (ONE TOUCH DELICA) lancets Use to test blood sugars 1 times daily or asdirected. 1 Box prn ??? blood glucose monitoring (ACCU-CHEK MULTICLIX) lancets Use to test blood sugar 2 times daily or as directed. 1 Box 11 ? ? JAY/ARB NOT PRESCRIBED, INTENTIONAL, 1 each daily JAY & ARB not prescribed due to not needed ??? blood glucose (ACCU-CHEK JANICE) test strip 1 strip by In Vitro route 2 times daily 100 strip prn OTC products: None, except as noted above Allergies Allergen Reactions ??? Erythromycin Rash Latex Allergy: NO Social History Substance Use Topics ??? Smoking status: Never Smoker ??? Smokeless tobacco: Never Used ??? Alcohol Use: Yes Comment: Rare History Drug Use No REVIEW OF SYSTEMS: Constitutional, HEENT, cardiovascular, pulmonary, gi and gu systems are negative, except as otherwise noted. EXAM: BP 104/68 mmHg Pulse 72 Wt 191 lb (86.637 kg) LMP 10/30/2011 GENERAL APPEARANCE: healthy, alert and no distress EYES: EOMI,- PERRL HENT: ear canals and TM's normal and nose and mouth without ulcers or lesions NECK: no adenopathy, no asymmetry, masses, or scars and thyroid normal to palpation RESP: lungs clear to auscultation - no rales, rhonchi or wheezes CV: regular rates and rhythm, normal S1 S2, no S3 or S4 and 2/6 holosystomic murmur, no click or rub - ABDOMEN: soft, nontender, no HSM or masses and bowel sounds normal SKIN: no suspicious lesions or rashes PSYCH: mentation appears normal. and affect normal/bright DIAGNOSTICS: EKG: sinus rhythm, incomplete RBBB Hemoglobin A1C 6.1 on 03/23/16 Recent Labs Lab Test 03/23/16 1917 09/30/15 0922 04/08/15 1158 05/30/13 1349 HGB -- -- 13.1 -- 12.4 PLT -- -- 260 -- 226 NA 142 145* -- < > -- POTASSIUM 4.4 4.0 -- < > -- CR 0.77 0.67 -- < > -- A1C 6.1* 6.2* 6.0 < > 5.6 < > = values in this interval not displayed. IMPRESSION: Reason for surgery/procedure: left peroneal tear The proposed surgical procedure is considered INTERMEDIATE risk. REVISED CARDIAC RISK INDEX The patient has the following serious cardiovascular risks for perioperative complications such as (KS, PE, VFib and 3?? AV Block): No serious cardiac risks INTERPRETATION: 0 risks: Class I (very low risk - 0.4% complication rate) The patient has the following additional risks for perioperative complications: No identified additional risks ICD-10-CM 1. Preop general physical exam Z01.818 EKG 12-lead complete w/read - Clinics 2. Type 2 diabetes mellitus without complication, without long-term current use of insulin (H) E11.9 3. Injury of peroneal tendon of left foot, subsequent encounter S89.82XD RECOMMENDATIONS: --Because of DVT or PE history, patient should be on low molecular weight heparin and wear compression hose before & after surgery --Patient is to take all scheduled medications on the day of surgery EXCEPT for modifications listedbelow. Diabetes Medication Use -----Hold usual oral diabetic meds (e.g. Metformin, Actos, Glipizide) while NPO. APPROVAL GIVEN to proceed with proposed procedure, without further diagnostic evaluation Signed Electronically by: Noreen Corbett MD Copy of this evaluation report is provided to requesting physician. [facility] Preop Guidelines PHONE LINEWORKER documented in this encounter Nursing Notes Hortencia Sawyer, RERE - 06/08/2016 12:26 PM CST Pharmacy [facility] called. Prescription question. Clarified with MD. Will receive the Enoxaparin 100mg/1mlwill give same dose just changing the dispensing container. V. O. Dr Karthik Nieves PHONE LINEWORKER documented in this encounter Miscellaneous Notes Op Note - Agatha Nieves DPM, Podiatry/Foot and Ankle Surgery - 06/08/2016 11:38 AM CST DATE OF PROCEDURE: 06/08/2016 SURGEON: Agatha Nieves DPM PREOPERATIVE DIAGNOSES: 1. Left ankle pain. 2. Peroneal tendon tear, left ankle. 3. Type 2 diabetic without complications. POSTOPERATIVE DIAGNOSES: 1. Left ankle pain. 2. Peroneal tendon tear, left ankle. 3. Type 2 diabetic without complications. PROCEDURE: Left peroneal tendon repair and transfer. ANESTHESIA: General with popliteal block. HEMOSTASIS: Pneumatic thigh tourniquet with electrocautery. ESTIMATED BLOOD LOSS: Less than 10 mL. SPECIMENS: Diseased tendon for pathology. MATERIALS: 3-0 FiberWire. INDICATIONS: Ms. Megan Wong is a 51-year-old female who presented to clinic with pain in both ankles. At first the left ankle is worse than right. She does not have any previous history of injury. X-rays were negative for bony pathology. Pain gets worse as the day goes on. MRI showed peroneal tendon tearing of peroneal brevis on both ankles. It was discussed with patient to go in and surgicallyrepair this to try and help with some pain and stabilize the ankle. Discussed risks, benefits and complications with the patient including infection, neuritis, nonunion, blood loss, blood clotting, need for further surgery. The patient does have a previous history of DVT and we discussed getting Lovenox postop to try and help prevent DVT risk. She will be nonweightbearing for about a month. The patient wishes to proceed with surgery. OPERATIVE PROCEDURE: The patient was brought in the operating room, placed on the operating table gretchen lateral decubitus position with the left side up. Anesthesia was administered, and a thigh tourniquet was placed on the left thigh. Local was injected and the foot was prepped and draped using sterile technique. Attention was directed to the lateral aspect of the left ankle. A curvilinear incision approximately 7-8 cm was made following the peroneal tendon through skin. Blunt dissection was used down to the level of paratenon of the peroneal tendon. This was incised and a 4 cm tear of the peroneusbrevis was noted at the distal aspect of the fibula. The diseased tendon was removed and 3- 0 FiberWire was used to repair this tendon and transfer it to the peroneus longus tendon for extra strength. The wound was flushed with copious amounts of normal saline. The paratenon was reapproximated using 3-0 Vicryl. The subcutaneous was reapproximated using 4-0 Vicryl, and the skin was reapproximated using4-0 Prolene. The patient's foot was placed in a dry sterile dressing. The patient will be nonweightbearing for the next month. She was given oxycodone for pain. She will follow up in 1 week for dressing change. AGATHA NIEVES DPM MT: [id number] Name: MEGAN WONG Account: [id number] : 1965 Procedure Date: 06/08/2016 Document: [id number] PHONE LINEWORKER Brief Op Note - Agatha Nieves DPM, Podiatry/Foot and Ankle Surgery - 06/08/2016 11:19 AM CST [facility] Brief Operative Note Pre-operative diagnosis: Peroneal Tendon tear left foot Post-operative diagnosis same Procedure: Procedure(s): Left foot peroneal tendon repair/transfer - Wound Class: I-Clean Surgeon(s): Surgeon(s) and Role: * Agatha Nieves DPM, Pod - Primary Estimated blood loss: <10ml Specimens: ID Type Source Tests Collected by Time Destination A : Left foot tendon Tissue Foot, Left SURGICAL PATHOLOGY EXAM Agatha Nieves DPM, Pod 06/08/2016 10:40 AM Findings: See op note CST documented in this encounter Plan of Treatment Not on filedocumented as of this encounter Procedures Procedure Name Priority Date/Time Associated Diagnosis Comme nts GLUCOSE BY METER Routine 06/08/2016 11:52 AM Post-operative st ate Results for this TELEPHONE LINEWORKER procedure are i n the results section. SURGICAL PATHOLOGY Routine 06/08/2016 10:40 AM Re sults for this EXAM TELEPHONE LINEWORKER procedure are i n the results section. REPAIR, TENDON, 06/08/2016 9:59 AM Peroneal Tendon tea r PERONEAL TELEPHONE LINEWORKER Special Needs 5'2 / 191# stated POTASSIUM STAT 06/08/2016 9:20 AM TELEPHONE LINEWORKER Resul ts for this procedure are i n the results section . CREATININE STAT 06/08/2016 9:20 AM TELEPHONE LINEWORKER Resul ts for this procedure are i n the results section . GLUCOSE BY METER Routine 06/08/2016 8:58 AM TELEPHONE LINEWORKER R esults for this procedure are i n the results section . PATHOLOGY RESULT - HIM 06/08/2016 12:00 AM TELEPHONE LINEWORKER SCAN documented in this encounter Results (ABNORMAL) Glucose by meter (06/08/2016 11:52 AM TELEPHONE LINEWORKER) P athologist Signature Glucose 159 (H) 70 - 99 POINT OF CARE mg/dL TEST, GLUCOSE Specimen Anatomical Collection Method Collection Time Receive d Time (Source) Location / / Volume Laterality 06/08/2016 11:52 06/08/2016 AM TELEPHONE LINEWORKER 11:55 AM TELEPHONE LINEWORKER Agatha Nieves DPM, Podiatry/Foot and [facility]le [facility] PO[facility] Performing Organization Address City/State/ZIP Code Phon e Number F[place] POINT OF CARE TEST, GLUCOSE POINT OF CARE TEST, GLUCOSE Surgical pathology exam (06/08/2016 10:40 AM TELEPHONE LINEWORKER) Component Value Ref Test Analysis Performed At [facility] gist Range Method Time Signature Copath Report Patient Name: MEGAN WONG MR#: [id number] Specimen #: [id number] Collected: 06/08/2016 Received: 06/08/2016 Reported: 06/09/2016 11:56 Ordering Phy(s): AGATHA NIEVES For improved result formatting, select 'View Enhanced Report Format' under Linked Documents section. SPECIMEN(S): Tendon, left foot FINAL DIAGNOSIS: Tissue submitted as left foot tendon. - Tendinous-type connective tissues with degenerative change s. ??No inflammation. ??Negative for malignancy. Electronically signed out by: Todd Mckeon M.D. CLINICAL HISTORY: Peroneal tendon tear. GROSS: The specimen is received fresh labeled with the patient's na me, identifying information and left foot tendon. ??It consist s of a 5 x 0.7 cm mi rubbery tissue fragment. ??The specimen is bisect ed and submitted entirely in 1 block. (Dictated by: Ben Camacho 1 08/09/2015 01:42 PM) INTRAOPERATIVE CONSULTATION: Gross consultation: Left foot tendon: Tissue present consistent with tendon. ??( Dr. CURRY) MICROSCOPIC: There is connective tendinous-type tissue is partially surfa sanjiv by synovium. ??There are degenerative changes. ??There is no in flammation. CPT Codes: A: 07647-JW4, 06391-[id number] TESTING LAB LOCATION: [address] ??[address] COLLECTION SITE: Client: [facility] Location: [facility] (R) Specimen (Source) Anatomical Collection Method Collection Time Re ceived Time Location / / Volume Laterality Tissue specimen STRUCTURE OF LEFT 06/08/2016 10:40 (specimen) FOOT / Unknown AM TELEPHONE LINEWORKER Comment: Left foot tendon for Gross exam ination Agatha SHEPHERDM, Podiatry/Foot and Ankle Surgery LAB - [place] Performing Organization Address City/State/ZIP Code Phon e Number [facility] Creatinine (06/08/2016 9:20 AM TELEPHONE LINEWORKER) P athologist Signature Creatinine 0.74 0.52 - 1.04 [place] mg/dL [facility] GFR Estimate 82 >60 [place] mL/min/1.7m [address] Comment: Non GFR Calc GFR Estimate If Black >90 >60 mL/min/1.7m2 F [facility] GFR Calc HOSP ITAL Specimen Anatomical Collection Method Collection Time Receive d Time (Source) Location / / Volume Laterality Blood specimen 06/08/2016 9:20 AM 016 9:24 (specimen) TELEPHONE LINEWORKER AM TELEPHONE LINEWORKER Dusty Sanchez MD LAB - BLOOD ORDERABLES Performing Organization Address City/[facility]/ZIP [facility] Phon e Number M [facility] [address] [place], [place] [address] [place] [address] [address] [place], [place] [address], [facility] [phone] Potassium (06/08/2016 9:20 AM TELEPHONE LINEWORKER) athologist Signature Potassium 3.8 3.4 - 5.3 [facility] mmol/L HOSPITAL Specimen Anatomical Collection Method Collection Time Receive d Time (Source) Location / / Volume Laterality Blood specimen 06/08/2016 9:20 AM 016 9:24 (specimen) TELEPHONE LINEWORKER AM TELEPHONE LINEWORKER Dusty Sanchez MD LAB - BLOOD ORDERABLES Performing Organization Address City/[facility]/ZIP [facility] Phon e Number M [facility] [address] [place], [place] [address] [place] [address] [address] [place], [place] [address], [facility] [phone] (ABNORMAL) Glucose by meter (06/08/2016 8:58 AM TELEPHONE LINEWORKER) P athologist Signature Glucose 136 (H) 70 - 99 POINT OF CARE mg/dL TEST, GLUCOSE Specimen Anatomical Collection Method Collection Time Receive d Time (Source) Location / / Volume Laterality 06/08/2016 8:58 AM 6 9:00 TELEPHONE LINEWORKER AM TELEPHONE LINEWORKER Agatha Nieves DPM, Podiatry/Foot and Ankle Surgery LAB - [place] Performing Organization Address City/State/ZIP Code Phon e Number [facility] POINT OF CARE TEST, GLUCOSE POINT OF CARE TEST, GLUCOSE PATHOLOGY RESULT - HIM SCAN (06/08/2016 12:00 AM TELEPHONE LINEWORKER) Specimen (Source) Anatomical Location Collection Method / Collectio n Time Received Time / Laterality Volume 06/08/2016 Narrative This result has an attachment that is no t available. Provider Scan LAB - [facility] SPECIAL DIAG OR DERABLES documented in this encounter Visit Diagnoses Diagnosis Post-operative state - Primary Other postprocedural status Peroneal tendon tear, left, subsequent e ncounter Type 2 diabetes mellitus without complic ation, without long-term current use of insulin (H) documented in this encounter Administered Medications Inactive Administered Medications - up to 3 most recent administrations Medication Order MAR Action Action Date Dose Rate Site oxyCODONE (ROXICODONE) IR tablet Given 06/08/2016 12:23 PM TELEPHONE LINEWORKER 5 mg 5-10 mg 5-10 mg, Oral, ONCE PRN, moderate to severe pain, Starting on Elda 06/08/16 at 1107, For 1 dose, One time prior to discharge., Post-procedure documented in this encounter Active and Recently Administered Medications Times are shown in TELEPHONE LINEWORKER. Scheduled Medication Order 06/06/2016 06/07/2016 06/08/2016 ceFAZolin sodium-dextrose (ANCEF) infusion 2 g (COMPLETED) 1008 (Given - Provider: Bryson Marie APRN CRNA) 2 g, Intravenous, PRE-OP/PRE-PROCEDURE, Starting Elda 06/08/16 at 0859, For 1 dose, Give first dose within 1 hour PRIOR to incision. If patient weight is greater than or equal to 120 kg increase dose to 3 g., Indications: Surgical Prophylaxis, Pre-procedure Continuous Medication Order 06/06/2016 06/07/2016 06/08/2016 lactated ringers infusion (CANCELED) 1008 (New Bag - Provider: Bryson Marie APRN CRNA)1100 (New Bag - Provider: Bryson Marie APRN CRNA) at 25 mL/hr, Intravenous, CONTINUOUS, IF patient NOT on dialysis., Pre- procedure, Starting Elda 06/08/16 at 0915, Until Elda 06/08/16 at 1115 PRN Medication Order 06/06/2016 06/07/2016 06/08/2016 bupivacaine 0.5 % - EPINEPHrine 1:200,000 injection (CANCELED) 1101 (Given - Provider: Agatha Nieves DPM, Podiatry/Foot and Ankle Surgery) PRN, Starting Elda 06/08/16 at 1101, Intra-procedure lidocaine 1 % 1 mL (CANCELED) 10 13 (Given - Provider: Dusty Sanchez MD) 1 mL, Other, EVERY 1 HOUR PRN, mild pain with VAD insertion or accessing implanted port, Starting Elda 06/08/16 at 0901, Do NOT give if patient has a history of allergy to any local anesthetic or any ca ine product. MAX dose 1 mL subcutaneous OR intradermal in divided doses., Pre-procedure oxyCODONE (ROXICODONE) IR tablet 5-10 mg (COMPLETED) 1223 (Given - Provider: Hortencia Sawyer RN) 5-10 mg, Oral, ONCE PRN, moderate to sev ere pain, Starting Elda 06/08/16 at 1107, For 1 dose, One time prior to discharge., Post-procedure documented in this encounter Additional Health Concerns Assessment Noted Time PHQ-9 Depression Total Score: 11 05/02/2016 7:09 AM CS T documented as of this encounter Care Teams Instructor Technical Training Relationship Specialty Start Date End Date Vanda Guerrero MD PCP - General Internal Medicine 04/08/15 01/08/19 [address] [facility] [place] [address] documented as of this encounter
--- OUTSIDE RECORDS SUMMARY | 2022-01-17 22:12 | XMS_ITS | Encounter Summary ---
:1965 Author Organization [place] Address [address] [place] [address] Care Team Providers Name Role Phone Vanda Guerrero MD Primary Care Provider [phone] Reason for Visit Reason Comments Pre-Op Exam Encounter Details Date Type Department Care Team Description 06/01/[address] [facility] Noreen Corbett Preop gen eral physical exam (Primary Dx); Clinic Pino Mcneil MD Type 2 diabetes mellitus without complic ation, without long-term current use of insulin (H); [address] [facility] Injur y of peroneal tendon of left foot, subsequent encounter; [facility] Heart murm[address] [place] [address] [place] [phone] Social History Tobacco Use Types Packs/Day Years [...] 08/08/2019 relatives? How often do you attend baptism or scientology Patient refused 08/08/2019 services? Do you belong to any clubs or organizations such as No 08/08/2019 baptism groups, unions, fraternal or athletic groups, or [...] Sign Reading Time Taken Comments Blood Pressure 104/68 06/01/2016 10:14 AM HAM DOCTOR Pulse 72 06/01/2016 10:14 AM HAM DOCTOR Temperature - - Respiratory Rate - - Oxygen Saturation - - Inhaled Oxygen Concentration - - Weight 86.6 kg (191 lb) 06/01/2016 10:14 AM HAM DOCTOR Height - - Body Mass Index 34.93 05/16/2016 9:43 AM HAM DOCTOR documented in this encounter Patient Instructions Patient InstructionsKallie Blanco CMA - 06/01/2016 10:17 AM CST Pre-op Instructions: -From now until surgery: NO aspirin or ibuprofen products (Advil, excerdrin, etc) -OK to use tylenol for aches and pains Morning of surgery: -do NOT take metformin -also hold all other morning medications until after surgery. Before Your Surgery ??? Call your surgeon if there is any change in your health. This includes signs of a cold or flu (such as a sore throat, runny nose, cough, rash or fever). ??? Do not smoke, drink alcohol or take over the counter medicine (unless your surgeon or primary care doctor tells you to) for the 24 hours before and after surgery. ??? If you take prescribed drugs: Follow your doctor???s orders about which medicines to take and which to stop until after surgery. ??? Eating and drinking prior to surgery: follow the instructions from your surgeon ??? Take a shower or bath the night before surgery. Use the soap your surgeon gave you to gently clean your skin. If you do not have soap from your surgeon, use your regular soap. Do not shave or scrubthe surgery site. Wear clean pajamas and have clean sheets on your bed. DOCTOR documented in this encounter Progress Notes Noreen Corbett MD - 06/01/2016 10:17 AM CST [address] [facility] [address] Dept: [phone] PRE-OP EVALUATION: Today's date: 06/01/2016 Megan Choi (: 1965) presents for pre-operative evaluation assessment as requested by Dr. Null. She requires evaluation and anesthesia risk assessment prior to undergoing surgery/procedure for treatment of left ankle . Proposed procedure: repair of tendon in left ankle Date of Surgery/ Procedure: 06/08/16 Time of Surgery/ Procedure: 10:10am Hospital/Surgical Facility: [facility] Primary Physician: Vanda Guerrero Type of Anesthesia [...] ??? Obesity 04/13/2008 ??? Family history of NV (myocardial infarction) 04/13/2008 At early age, father NV at age 40 Past Medical History Diagnosis Date ??? Dvt femoral (deep venous thrombosis) (H) 04/17 post surgical, stopped coumadin 01/16 ??? IFG (impaired fasting glucose) 10/03/2015 ??? Diabetes mellitus (H) Type 2 ??? Arthritis Past Surgical History Procedure Laterality Date ??? C spinal fusion,ant,ea adnl level 2004 L5, S1, Repeated in 2005 ??? C spinal fusion,ant,ea adnl level 2007 SI joints ??? C spinal fusion,ant,ea adnl level 2000 C5-C7 fused ??? section ??? Ent surgery T&A < 10 y/o Current Outpatient Prescriptions Medication Sig Dispense Refill ??? citalopram (CELEXA) 20 MG tablet Take 1 tablet (20 mg) by mouth daily 90 tablet 3 ??? fluticasone (FLONASE) 50 MCG/ACT nasal spray [place] 1-2 sprays into both nostrils daily 3 [...] cardiovascular risks for perioperative complications such as (NV, PE, VFib and 3?? AV Block): No [...] evaluation report is provided to requesting physician. [place] Preop Guidelines DOCTOR documented in this encounter Nursing Notes Kallie Blanco CMA - 06/01/2016 10:19 AM CST Chief Complaint Patient presents with ??? Pre-Op Exam Initial BP 104/68 mmHg Pulse 72 Wt 191 lb (86.637 kg) LMP 10/30/2011 Estimated body mass indexis 34.93 kg/(m^2) as calculated from the following: Height as of 16: 5' 2 (1.575 m). Weight as of this encounter: 191 lb (86.637 kg). BP completed using cuff size: kait Blanco ma DOCTOR documented in this encounter Plan of Treatment Not on filedocumented as of this encounter Procedures Procedure Name Priority Date/Time Associated Diagnosis Comme nts EKG 12-LEAD Routine 06/01/2016 10:37 AM Preop general Results for this COMPLETE W/READ - HAM DOCTOR physical exam procedure are in CLINICS the results section. documented in this encounter Results EKG 12-lead complete w/read - Clinics (06/01/2016 10:37 AM HAM DOCTOR) Specimen (Source) Anatomical Collection Method Collection Time Re ceived Time Location / / Volume Laterality 06/01/2016 10:37 AM HAM DOCTOR Narrative This result has an attachment that is no t available. Noeren Corbett MD ECG ORDERABLES documented in this encounter Visit Diagnoses Diagnosis Preop general physical exam - Primary Other specified pre-operative examinatio n Type 2 diabetes mellitus without complic ation, without long-term current use of insulin (H) Injury of peroneal tendon of left foot, subsequent encounter Heart murmur Undiagnosed cardiac murmurs documented in this encounter Additional Health Concerns Assessment Noted Time PHQ-9 Depression Total Score: 11 05/02/2016 7:09 AM CS T documented as of this encounter Care Teams Rehabilitation Physician Relationship Specialty Start Date End Date Vanda Guerrero MD PCP - General Internal Medicine 04/08/15 01/08/19 [address] [facility] [place] [address] documented as of this encounter
--- OUTSIDE RECORDS SUMMARY | 2022-01-17 22:12 | XMS_ITS | Encounter Summary ---
:1965 Author Organization [place] Address [address] [place] [address] Care Team Providers Name Role Phone Vanda Guerrero MD Primary Care Provider [phone] Reason for Visit Reason Onset Date Comments Refill Request 06/05/2016 Zanaflex Encounter Details Date Type Department Care Team Description 06/05/2016 Refill [facility] Vanda Guerrero R efill Request Clinic Pino SALDANA (Zanaflex) [address] [facility] [address] [place] [address] [place] [phone] Social History Tobacco Use Types Packs/Day Years [...] 08/08/2019 relatives? How often do you attend mormonism or anglican Patient refused 08/08/2019 services? Do you belong to any clubs or organizations such as No 08/08/2019 mormonism groups, unions, fraternal or athletic groups, or [...] this encounter Miscellaneous Notes Telephone Encounter - Nicole Magana RN - 06/05/2016 1:16 PM DOUBLE BASS PLAYER Zanaflex Last Written Prescription Date: 12/31/2015 Last Fill Quantity: 90 tablet, # refills: 5 Last Office Visit with [facility], [facility] or Health prescribing provider: 06/01/2016 with AF (pre-op) Future Office visit: Next 5 appointments (look out 90 days) Jun 13, 2016 10:00 AM Return Visit with Agatha Null DPM, Pod [facility] ([facility]) [address] [place] [phone] Routing refill request to provider for review/approval because: Drug not on the [facility], [facility] or Health refill protocol or controlled substance Nicole Magana, RN, BSN, PHN LE BASS PLAYER documented in this encounter Plan of Treatment Not on filedocumented as of this encounter Visit Diagnoses Diagnosis Cervicalgia - Primary History of fusion of cervical spine Arthrodesis status History of lumbar fusion documented in this encounter Additional Health Concerns Assessment Noted Time PHQ-9 Depression Total Score: 11 05/02/2016 7:09 AM CS T documented as of this encounter Care Teams Combat Control Manager Relationship Specialty Start Date End Date Vanda Guerrero MD PCP - General Internal Medicine 04/08/15 01/08/19 [address] [facility] [place] [id number] documented as of this encounter
--- OUTSIDE RECORDS SUMMARY | 2022-01-17 22:12 | XMS_ITS | Encounter Summary ---
:1965 Author Organization [place] Address [address] [place] [address] Care Team Providers Name Role Phone Vanda Guerrero MD Primary Care Provider [phone] Vanda Guerrero MD Unavailable Reason for Visit [facility] Physical [facility] (Routine) - Closed Specialty Diagnoses / Procedures Referred By Contact Refer red To Contact Physical Therapy Diagnoses new pt needs paperwork post peroneal tendon repair surgery left foot. / Agatha Null DPM, Pod @ [facility] Agatha Null DPM, Candy Disla, PT Procedures [facility] Podiatry/Foot and [facility] [address] [place] [address] [place] [address] [place] [address] Referral ID Status Reason Start Date Expiration Date Visits V isits Requested Authorized [facility]/BC/LFOOT Closed 07/03/2016 06/10/2017 20 18 Encounter Details Date Type Department Care Team Description [facility]/11[facility]2016 [facility]; Rehabilitation PT Aftercare following surgery of the [facility] Services [facility] [address] [facility] [address] [place] [address] [place], [place] [phone] Social History Tobacco Use Types Packs/Day [...] How often do you attend hinduism or adventist Patient refused 08/08/2019 services? Do [...] documented as of this encounter Progress Notes Candy Disla, PT - 08/11/2016 10:00 AM CST Subjective: HPI Objective: System Physical Exam General ROS Assessment/Plan: PROGRESS REPORT Progress reporting period is from 07/03/2016 to 08/11/2016. SUBJECTIVE Subjective changes noted by patient: Patient states she is doing much better today than yesterday, she had a migraine yesterday. Ankle still gets sore, but the pain is down since surgery. Has been ableto take a few steps without the boot, like when walking from the shower. States she is excited to get rid of the boot on Sunday. Exercises are going pretty good. Reports her swelling increased yesterday because she had her boot on all day. Current pain level is 2/10. Previous pain level was 6/10. Changes in function: Yes (See Goal flowsheet attached for changes in current functional level) Adverse reaction to treatment or activity: None OBJECTIVE Changes noted in objective findings: Yes, Objective: AROM L Ankle DF: 8, PF: 66, PROM DF: 12, Strength L Ankle DF: +4/5, PF: 5/5, Ever: 4/5, Inv: +3/5, Edema: 56cm, Gait: WBAT w/ CAM, analgic pattern d/t limited ROM from CAM, decreased karlo; BalanceFT EO: 30 sec, FT EC: 30 sec, Tandem EO: 1 sec ASSESSMENT/PLAN Updated problem list and treatment plan: Diagnosis 1: s/p L peroneal tendon repair Pain - hot/cold therapy, manual therapy, education and home program Decreased ROM/flexibility - manual therapy and therapeutic exercise Decreased strength - therapeutic exercise and therapeutic activities Impaired balance - neuro re-education and therapeutic activities Decreased proprioception - neuro re-education and therapeutic activities Impaired gait - gait training Impaired muscle performance - neuro re-education Decreased function - therapeutic activities STG/LTGs have been met or progress has been made towards goals: Yes (See Goal flow sheet completed today.) Assessment of Progress: The patient's condition is improving. The patient's condition has potential to improve. Patient is meeting short term goals and is progressing towards pipe cleaner goals. Self Management Plans: Patient has been instructed in a home treatment program. I have re-evaluated this patient and find that the nature, scope, duration and intensity of the therapy is appropriate for the medical condition of the patient. Megan continues to require the following intervention to meet STG and LTG's: PT Recommendations: This patient would benefit from continued therapy. Frequency: 1 X week, once daily Duration: for 5 weeks Please refer to the daily flowsheet for treatment today, total treatment time and time spent performing 1:1 timed codes. SOLUTION ARCHITECT documented in this encounter Plan of Treatment Not on filedocumented as of this encounter Procedures Procedure Name Priority Date/Time Associated Diagnosis Comme nts [facility] [[email or web address] NEUROMUSCULAR Routine 08/11/2016 10:38 AM Ankle pain , left RE-EDUCATION CRM SOLUTION ARCHITECT Aftercare following surgery of the musculoskeletal system [facility] [[email or web address]] THERAPEUTIC Routine 08/11/2016 10:38 AM Ankle pain, left EXERCISES CRM SOLUTION ARCHITECT Aftercare following surgery of the musculoskeletal system documented in this encounter Visit Diagnoses Diagnosis Ankle pain, left Pain in joint, ankle and foot Aftercare [facility] Aftercare following [facility], [facility] documented in this encounter Additional Health Concerns Assessment Noted Time PHQ-9 Depression Total Score: 11 05/02/2016 7:09 AM CS T documented as of this encounter Care Teams Care Coordination Manager Relationship Specialty Start Date End Date Vanda Guerrero MD PCP - General Internal Medicine 04/08/15 01/08/[address] [place] [address] [place] [id number] Vanda Guerrero MD PCP - Assigned PCP 07/24/16 06/15/[address] [place] [address] [place] [id number] documented as of this encounter
--- OUTSIDE RECORDS SUMMARY | 2022-01-17 22:12 | XMS_ITS | Encounter Summary ---
:1965 [address] Address [address] [place] [address]. [place] [address] Care Team Providers Name Role Phone Vanda Guerrero MD Primary Care Provider [phone] Reason for Visit Auth/Cert Specialty Diagnoses / Procedures Referred By Contact Refer red To Contact Surgery Diagnoses Peroneal Tendon tear Rh Periop Services Procedures REPAIR TENDON PERONEAL [address] [place], [place] [address] Fax: Referral ID Status Reason Start Date Expiration Date Visits Requ ested Visits Authorized [id number] 1 1 Encounter Details Date Type Department Care Team Description 06/08/2016 Anesthesia Event [facility] Olivier Sanchez PeriOp Services MD Sherwin [address] [place] [address] ANESTH ESIA [address] [place], [place] [address] (Wo rk) Anesthesia Record Procedure Summary Procedure Name Responsible Anesthesia Start Anesthesia Stop Time Anesthesiologist Time Left peroneal Garry Sanchez 06/08/16 1008 06/08/16 111 8 tendon repair and MD Sherwin transfer (Left Ankle) Events Date Time Event Comment 06/08/2016 0953 Non-OR Block Start Garry Sanchez 1003 Non-OR Block Stop Garry Palacios ir 1008 An Start 1008 An Start Data 1008 MD Present 1013 An Induction 1013 AN START SEVO 1013 MD Present 1016 An LMA 1016 MD Present 1020 MD Present 1101 An Tourn Deflated 1107 AN END SEVO 1113 MD Present 1114 an stop data 1118 An Stop Electronically s igned by Bryson Marie on June 08 11:18 AM 1118 MD Present Name Total midazolam 1mg/mL 4 mg fentaNYL (SUBLIMAZE) injection 125 mcg propofol (DIPRIVAN) injection 10 mg/mL vial 200 mg rocuronium 10mg/mL 20 mg glycopyrrolate 0.2mg/mL 0.2 mg dexamethasone 4mg/mL 8 mg ondansetron 2mg/mL 4 mg ketorolac 30mg/mL 30 mg ceFAZolin sodium-dextrose (ANCEF) infusion 2 g 2 g bupivacaine 0.5% with EPINEPHrine 1:200,000 40 mL methylPREDNISolone acetate (DEPO-MEDROL) injection 80 mg/mL 80 mg lidocaine 1 % 1 mL 30 mg lactated ringers infusion 1,000 mL Agents Name O2 N2O Air Exp Sevoflurane Blood No blood administrations on file. Lines, Drains, and Airways Type Details Placement Removal Incision/Surgical Site 06/08/16; 1035; 06/08/16 1035 by 11/06/19 1901 by Left; Ankle; Carolin Barrera, RERE Mcgrath, Kim sunitha, 11/06/19; 1901 RN Peripheral IV 06/08/16; 1124; 20 06/08/16 1124 by 06/08/16 132 8 by G; Left; Lower Hortencia Sawyer RN White, La urie B, RN forearm documented in this encounter Social History Tobacco Use Types Packs/Day Years [...] 08/08/2019 relatives? How often do you attend mandaeism or latter day Patient refused 08/08/2019 services? Do you belong to any clubs or organizations such as No 08/08/2019 mandaeism groups, unions, fraternal or athletic groups, or [...] on file documented as of this encounter OR Notes Anesthesia Postprocedure Evaluation - Garry Sanchez MD - 06/08/2016 11:23 AM CST Patient: Megan Choi REPAIR TENDON PERONEAL (Left Ankle) Additional InformationProcedure(s): Left foot peroneal tendon repair/transfer - Wound Class: I-Clean Diagnosis:Peroneal Tendon tear Diagnosis Additional Information: Left foot peroneal tendon tear Dr. Null Anesthesia Type: General, LMA, Periph. Nerve Block for postop pain Note: Anesthesia Post Evaluation Patient location during evaluation: PACU Patient participation: Able to participate in evaluation but full recovery from regional anesthesia has not yet ocurrred but is anticipated to occur within 48 hours Level of consciousness: awake Pain management: adequate Airway patency: patent Cardiovascular status: acceptable Respiratory status: acceptable Hydration status: acceptable PONV: none Last vitals: Filed Vitals: 06/08/16 0955 06/08/16 1000 06/08/16 1115 BP: 126/83 153/80 Temp: 97.9 ??F (36.6 ??C) Resp: 17 21 10 SpO2: 92% 95% 100% Electronically Signed By: Garry Sanchez MD June 08, 2016 11:23 AM E SALES MANAGER Anesthesia Procedure Notes - Garry Sanchez MD - 06/08/2016 10:10 AM CSTAssociated Order(s): ANE PERIPHERAL/PARAVETEBRAL BLOCK; ANE PERIPHERAL/PARAVETEBRAL BLOCK Peripheral nerve/Neuraxial procedure note : Sciatic Pre-Procedure Performed by GARRY SANCHEZ Referred by LIZBETH Location: pre-op Pre-Anesthestic Checklist: patient identified, IV checked, site marked, risks and benefits discussed, informed consent, monitors and equipment checked, pre-op evaluation, at physician/surgeon's requestand post-op pain management Timeout Correct Patient: Yes Correct Procedure: Yes Correct Site: Yes Correct Laterality: Yes Correct Position: Yes Site Marked: Yes . Procedure Documentation . Procedure: Sciatic. Local skin infiltrated with 0.5 mL of 1% lidocaine. Ultrasound used to identify targeted nerve, plexus, or vascular marker and placed a needle adjacentto it. Patient Prep;sterile gloves, povidone-iodine 7.5% surgical scrub. Nerve Stim: Initial Level 1 mA. Lowest motor response 0.5 mA.. Needle: insulated, short bevel (22 G. 3.13 in). . Spinal Needle: . . Insertion Method: Single Shot. Assessment/Narrative Paresthesias: No. Injection made incrementally with aspirations every 5 mL.. The placement was negative for: blood aspirated, painful injection and site bleeding. Bolus given via needle.. Secured via. Complications: none. Test dose of 5 mL at. Test dose negative for signs of intravascular, subdural or intrathecal injection. Comments: 30 cc The surgeon has given a verbal order transferring care of this patient to me for the performance of a regional analgesia block for post-op pain control. It is requested of me because I am uniquely trained and qualified to perform this block and the surgeon is neither trained nor qualified to perform this procedure. Peripheral nerve/Neuraxial procedure note : Femoral Pre-Procedure Performed by GARRY SANCHEZ Location: pre-op Pre-Anesthestic Checklist: patient identified, IV checked, site marked, risks and benefits discussed, informed consent, monitors and equipment checked, pre-op evaluation, at physician/surgeon's requestand post-op pain management Timeout Correct Patient: Yes Correct Procedure: Yes Correct Site: Yes Correct Laterality: Yes Correct Position: Yes Site Marked: Yes . Procedure Documentation . Procedure: Femoral. Local skin infiltrated with 0.5 mL of 1% lidocaine. Ultrasound used to identify targeted nerve, plexus, or vascular marker and placed a needle adjacentto it. Patient Prep;sterile gloves, povidone-iodine 7.5% surgical scrub. . Needle: (). . Spinal Needle: . .Insertion Method: Single Shot. Assessment/Narrative Paresthesias: No. Injection made incrementally with aspirations every 5 mL.. The placement was negative for: blood aspirated, painful injection and site bleeding. Bolus given via needle.. Secured via. Complications:. Test dose of 5 mL at. Test dose negative for signs of intravascular, subdural or intrathecal injection. Comments: 10 cc The surgeon has given a verbal order transferring care of this patient to me for the performance of a regional analgesia block for post-op pain control. It is requested of me because I am uniquely trained and qualified to perform this block and the surgeon is neither trained nor qualified to perform this procedure. E SALES MANAGER Anesthesia Preprocedure Evaluation - Garry Sanchez MD - 06/08/2016 8:36 AM CST Anesthesia Evaluation . Pt has had prior anesthetic. Type: General ROS/MED HX ENT/Pulmonary: - neg pulmonary ROS Neurologic: - neg neurologic ROS Cardiovascular: - neg cardiovascular ROS METS/Exercise Tolerance: Hematologic: - neg hematologic ROS Musculoskeletal: (+) arthritis, , , - GI/Hepatic: (+) GERD Asymptomatic on medication, Renal/Genitourinary: - ROS Renal section negative Endo: Comment: Class 2 (+) type II DM Last HgA1c: 6.1 Obesity, . Psychiatric: - neg psychiatric ROS Infectious Disease: - neg infectious disease ROS Malignancy: Other: - neg other ROS Physical Exam Normal systems: cardiovascular, pulmonary and dental Airway Mallampati: II TM distance: >3 FB Neck ROM: full Dental Cardiovascular Rhythm and rate: regular and normal Pulmonary breath sounds clear to auscultation Other findings: Lab Test 04/08/15 05/30/13 10/28/11 1158 1349 2155 WBC 5.4 7.0 8.1 HGB 13.1 12.4 12.3 MCV 98 92 93 PLT 260 226 221 Lab Test 03/23/16 09/30/15 10/06/14 10/27/13 1917 0922 1018 0857 NA 142 145* -- 143 POTASSIUM 4.4 4.0 -- 3.8 CHLORIDE 110* 110* -- 107 CO2 29 25 -- 26 BUN 17 10 -- 14 CR 0.77 0.67 0.76 0.64 ANIONGAP 3 10 -- 10 CHELSEA 9.6 9.7 -- 8.9 GLC 106* 104* -- 100* EKG: sinus rhythm, incomplete RBBB Anesthesia Plan History & Physical Review History and physical reviewed and following examination; no interval change. ASA Status: 3 . NPO Status: > 8 hours Plan for General, LMA and Periph. Nerve Block for postop pain with Intravenous induction. Maintenance will be Balanced. PONV prophylaxis: Ondansetron (or other 5HT-3) and Dexamethasone or Solumedrol Postoperative Care Postoperative pain management: IV analgesics, Oral pain medications, Peripheral nerve block (Single Shot) and Multi-modal analgesia. Consents Anesthetic plan, risks, benefits and alternatives discussed with: Patient. Use of blood products discussed: No . . . E SALES MANAGER documented in this encounter Miscellaneous Notes Anesthesia Care Transfer Note - Bryson Marie APRN CRNA - 06/08/2016 11:18 AM CST Patient: Megan Choi REPAIR TENDON PERONEAL (Left Ankle) Additional InformationProcedure(s): Left foot peroneal tendon repair/transfer - Wound Class: I-Clean Diagnosis: Peroneal Tendon tear Diagnosis Additional Information: No value filed. Anesthesia Type: General, LMA, Periph. Nerve Block for postop pain Note: Airway :Face Mask Patient transferred to:PACU Comments: Pt sv good tidal volumes, awake LMA removed prepare to transfer to PACU, Report to INTERNET DEVELOPER. VSS transfer care Vitals: (Last set prior to Anesthesia Care Transfer) Electronically Signed By: Bryson Marie APRN FINANCIAL SERVICE REPRESENTATIVE June 08, 2016 11:18 AM E SALES MANAGER documented in this encounter Plan of Treatment Not on filedocumented as of this encounter Procedures Procedure Name Priority Date/Time Associated Diagnosis Comme nts ANE Routine 06/08/2016 10:12 AM Results for this PERIPHERAL/PARAVETE STORE SALES MANAGER procedur e are in BRAL BLOCK the results section. documented in this encounter Results Peripheral/Paravetebral Block (06/08/2016 10:12 AM STORE SALES MANAGER) Narrative Garry Sanchez MD - 016 10:12 AM STORE SALES MANAGER Garry Sanchez MD ? 06/08/2016 10:12 AM Peripheral nerve/Neuraxial procedure not e : Sciatic Pre-Procedure Performed by GARRY SANCHEZ Referred by LIZBETH Location: pre-op ?? Pre-Anesthestic Checklist: patient ident ified, IV checked, site marked, risks and benefits discussed, in formed consent, monitors and equipment checked, pre-op evaluation , at physician/surgeon's request and post-op pain management ?? Timeout Correct Patient: Yes Correct Procedure: Yes Correct Site: Yes Correct Laterality: Yes Correct Position: Yes Site Marked: Yes . Procedure Documentation . ?? Procedure: ?Sciatic. ??Local skin in filtrated with 0.5 mL of 1% lidocaine. ?? Ultrasound used to identify targeted ne rve, plexus, or vascular marker and placed a needle adjacent to i t. Patient Prep;sterile gloves, povidone-io dine 7.5% surgical scrub. Nerve Stim: Initial Level 1 mA. ??[place] t motor response 0.5 mA.. ?? Needle: insulated, short bevel (22 G. 3. 13 in). . ??Spinal Needle: . . Insertion Method: Single Shot. ?? Assessment/Narrative Paresthesias: No. ??Injection made incre mentally with aspirations every 5 mL.. ??The placement was negativ e for: blood aspirated, painful injection and site bleeding. ??B olus given via needle.. Secured via. Complications: none. Test dose of 5 mL a t. Test dose negative for signs of intravascular, subdural or intr athecal injection. Comments: ??30 cc The surgeon has given a verbal order tra nsferring care of this patient to me for the performance of a r egional analgesia block for post-op pain control. It is requeste d of me because I am uniquely trained and qualified to perfor m this block and the surgeon is neither trained nor qualified to perform this procedure. Peripheral nerve/Neuraxial procedure not e : Femoral Pre-Procedure Performed by GARRY SANCHEZ Location: pre-op ?? Pre-Anesthestic Checklist: patient ident ified, IV checked, site marked, risks and benefits discussed, in formed consent, monitors and equipment checked, pre-op evaluation , at physician/surgeon's request and post-op pain management ?? Timeout Correct Patient: Yes Correct Procedure: Yes Correct Site: Yes Correct Laterality: Yes Correct Position: Yes Site Marked: Yes . Procedure Documentation . ?? Procedure: ?Femoral. ??Local skin in filtrated with 0.5 mL of 1% lidocaine. ?? Ultrasound used to identify targeted ne rve, plexus, or vascular marker and placed a needle adjacent to i t. Patient Prep;sterile gloves, povidone-io dine 7.5% surgical scrub. . ??Needle: (). . Spinal Needle: . . In sertion Method: Single Shot. ?? Assessment/Narrative Paresthesias: No. ??Injection made incre mentally with aspirations every 5 mL.. ??The placement was negativ e for: blood aspirated, painful injection and site bleeding. ??B olus given via needle.. Secured via. Complications:. Test dose of [address] dose negative for signs of intravascular, subdural or intr athecal injection. Comments: ??10 cc The surgeon has given a verbal order tra nsferring care of this patient to me for the performance of a r egional analgesia block for post-op pain control. It is requeste d of me because I am uniquely trained and qualified to perfor m this block and the surgeon is neither trained nor qualified to perform this procedure. Garry Sanchez MD CT ANESTHESIA Peripheral/Paravetebral Block (06/08/2016 10:12 AM STORE SALES MANAGER) Narrative Garry Sanchez MD - 016 10:12 AM STORE SALES MANAGER Garry Sanchez MD ? 06/08/2016 10:12 AM Peripheral nerve/Neuraxial procedure not e : Sciatic Pre-Procedure Performed by GARRY SANCHEZ Referred by LIZBETH Location: pre-op ?? Pre-Anesthestic Checklist: patient ident ified, IV checked, site marked, risks and benefits discussed, in formed consent, monitors and equipment checked, pre-op evaluation , at physician/surgeon's request and post-op pain management ?? Timeout Correct Patient: Yes Correct Procedure: Yes Correct Site: Yes Correct Laterality: Yes Correct Position: Yes Site Marked: Yes . Procedure Documentation . ?? Procedure: ?Sciatic. ??Local skin in filtrated with 0.5 mL of 1% lidocaine. ?? Ultrasound used to identify targeted ne rve, plexus, or vascular marker and placed a needle adjacent to i t. Patient Prep;sterile gloves, povidone-io dine 7.5% surgical scrub. Nerve Stim: Initial Level 1 mA. ??[place] t motor response 0.5 mA.. ?? Needle: insulated, short bevel (22 G. 3. 13 in). . ??Spinal Needle: . . Insertion Method: Single Shot. ?? Assessment/Narrative Paresthesias: No. ??Injection made incre mentally with aspirations every 5 mL.. ??The placement was negativ e for: blood aspirated, painful injection and site bleeding. ??B olus given via needle.. Secured via. Complications: none. Test dose of 5 mL a t. Test dose negative for signs of intravascular, subdural or intr athecal injection. Comments: ??30 cc The surgeon has given a verbal order tra nsferring care of this patient to me for the performance of a r egional analgesia block for post-op pain control. It is requeste d of me because I am uniquely trained and qualified to perfor m this block and the surgeon is neither trained nor qualified to perform this procedure. Peripheral nerve/Neuraxial procedure not e : Femoral Pre-Procedure Performed by GARRY SANCHEZ Location: pre-op ?? Pre-Anesthestic Checklist: patient ident ified, IV checked, site marked, risks and benefits discussed, in formed consent, monitors and equipment checked, pre-op evaluation , at physician/surgeon's request and post-op pain management ?? Timeout Correct Patient: Yes Correct Procedure: Yes Correct Site: Yes Correct Laterality: Yes Correct Position: Yes Site Marked: Yes . Procedure Documentation . ?? Procedure: ?Femoral. ??Local skin in filtrated with 0.5 mL of 1% lidocaine. ?? Ultrasound used to identify targeted ne rve, plexus, or vascular marker and placed a needle adjacent to i t. Patient Prep;sterile gloves, povidone-io dine 7.5% surgical scrub. . ??Needle: (). . Spinal Needle: . . In sertion Method: Single Shot. ?? Assessment/Narrative Paresthesias: No. ??Injection made incre mentally with aspirations every 5 mL.. ??The placement was negativ e for: blood aspirated, painful injection and site bleeding. ??B olus given via needle.. Secured via. Complications:. Test dose of [address] dose negative for signs of intravascular, subdural or intr athecal injection. Comments: ??10 cc The surgeon has given a verbal order tra nsferring care of this patient to me for the performance of a r egional analgesia block for post-op pain control. It is requeste d of me because I am uniquely trained and qualified to perfor m this block and the surgeon is neither trained nor qualified to perform this procedure. Garry Sanchez MD CT ANESTHESIA documented in this encounter Visit Diagnoses Not on filedocumented in this encounter Administered Medications Inactive Administered Medications - up to 3 most recent administrations Medication Order MAR Action Action Date Dose Rate Site bupivacaine 0.5 % - EPINEPHrine Given 06/08/2016 9:53 AM STORE SALES MANAGER 40 mLs 1:200,000 injection PRN, Starting on Elda 06/08/16 at 0953, Anesthesia Intra-op ceFAZolin sodium-dextrose (ANCEF) infusi on 2 g Given 06/08/2016 10:08 AM STORE SALES MANAGER 2 g Routine, 2 g, Intravenous, PRE-OP/PRE-PROCEDURE, Starting on Elda 06/08/16 at 0859, For 1 dose, Give first dose within 1 hour PRIOR to incision. If patient weight is greater than or equal to 120 kg increase dose to 3 g., Indications: Perioperative Pharmacoprophylaxis, Pre-procedure dexamethasone (DECADRON) injection Given 06/08/2016 10:13 AM STORE SALES MANAGER 8 mg PRN, Administer over 1-4 Minutes, Starting on Elda 06/08/16 at 1013, Anesthesia Intra-op fentaNYL Citrate (PF) (SUBLIMAZE) inject ion Given 06/08/2016 10:13 AM STORE SALES MANAGER 75 mcg PRN, moderate to severe pain, Starting on Elda 06/08/16 at 0953, Anesthesia Intra-op Given 06/08/2016 9:53 AM STORE SALES MANAGER 50 mcg glycopyrrolate (ROBINUL) injection Given 06/08/2016 10:13 AM STORE SALES MANAGER 0.2 mg PRN, Starting on Elda 06/08/16 at 1013, Anesthesia Intra-op ketorolac (TORADOL) injection Given 06/08/2016 10:13 AM STORE SALES MANAGER 30 mg PRN, moderate pain, Starting on Elda 06/08/16 at 1013, Anesthesia Intra-op lactated ringers infusion New Bag 06/08/2016 11:00 AM STORE SALES MANAGER at 25 mL/hr, Intravenous, CONTINUOUS, IF patient NOT on dialysis., Pre-procedure, Starting on Elda 06/08/16 at 0915, Until Elda 06/08/16 at 1115 New Bag 06/08/2016 10:08 AM STORE SALES MANAGER lidocaine 1 % 1 mL Given 06/08/2016 10:13 AM STORE SALES MANAGER 30 mg 1 mL, Other, EVERY 1 HOUR PRN, mild pain with VAD insertion or accessing implanted port, Starting on Elda 06/08/16 at 0901, Do NOT give if patient has a history of allergy to any local anesthetic or any jabier product. MAX dose 1 mL subcutaneous OR intradermal in divided doses., Pre-procedure methylPREDNISolone acetate (DEPO-MEDROL) Given 06/08/2016 9:53 A M STORE SALES MANAGER 80 mg injection PRN, Starting on Elda 06/08/16 at 0953, Anesthesia Intra-op midazolam (VERSED) injection Given 06/08/2016 10:08 AM STORE SALES MANAGER 2 mg PRN, anxiety, Starting on Elda 06/08/16 at 0953, Anesthesia Intra-op Given 06/08/2016 9:53 AM STORE SALES MANAGER 2 mg ondansetron (ZOFRAN) injection Given 06/08/2016 10:13 AM STORE SALES MANAGER 4 mg PRN, nausea, vomiting, Administer over 2-5 Minutes, Starting on Elda 06/08/16 at 1013, Anesthesia Intra-op propofol (DIPRIVAN) injection 10 mg/mL v ial Given 06/08/2016 10:13 AM STORE SALES MANAGER 200 mg PRN, Starting on Elda 06/08/16 at 1013, Anesthesia Intra-op rocuronium (ZEMURON) injection Given 06/08/2016 10:13 AM STORE SALES MANAGER 20 mg PRN, Starting on Elda 06/08/16 at 1013, Anesthesia Intra-op documented in this encounter Additional Health Concerns Assessment Noted Time PHQ-9 Depression Total Score: 11 05/02/2016 7:09 AM CS T documented as of this encounter Care Teams Side Stitching Machine Operator Relationship Specialty Start Date End Date Vanda Guerrero MD PCP - General Internal Medicine 04/08/15 01/08/[address] [address] documented as of this encounter
--- OUTSIDE RECORDS SUMMARY | 2022-01-17 22:12 | XMS_ITS | Encounter Summary ---
:1965 Author Organization [facility] Address [address] [place] [address] Care Team Providers Name Role Phone Vanda Guerrero MD Primary Care Provider [phone] Reason for Visit Reason Onset Date Comments Prior Authorization 05/25/2016 Encounter Details Date Type Department Care Team Description 05/25/[address] [facility] Agatha Null, DPM, Pr ior Authorization Clinic [facility] and [address] [place] [address] Ankle Surgery [address] [place] [address] [facility] [phone] [place], [place] [address] (Wo rk) Social History [...] often do you attend jehovah's witness or druze Patient refused 08/08/2019 services? Do [...] this encounter Miscellaneous Notes Telephone Encounter - Dafne Doll - 05/25/2016 1:[address] @ [facility], , no precert is required for patient's 06/08/[address] Null. CPT code 78389. CULTURAL TECHNICAL OFFICER documented in this encounter Plan of Treatment Not on filedocumented as of this encounter Visit Diagnoses Not on filedocumented in this encounter Additional Health Concerns Assessment Noted Time PHQ-9 Depression Total Score: 11 05/02/2016 7:09 AM CS T documented as of this encounter Care Teams Yarn Weigher Relationship Specialty Start Date End Date Vanda Guerrero MD PCP - General Internal Medicine 04/08/15 01/08/19 [address] [facility] [address] [address] [place], [place] [address] documented as of this encounter
--- OUTSIDE RECORDS SUMMARY | 2022-01-17 22:12 | XMS_ITS | Encounter Summary ---
:1965 Author Organization [facility] Address [address] [place] [address] Care Team Providers Name Role Phone Vanda Guerrero MD Primary Care Provider [phone] Vanda Guerrero MD Unavailable Reason for Visit LINUS Physical Therapy (Routine) - Closed Specialty Diagnoses / Procedures Referred By Contact Refer red To Contact Physical Therapy Diagnoses new pt needs paperwork post peroneal tendon repair surgery left foot. / Agatha Null DPM, Pod @ Cr Podiatry Agatha Null DPM, Candy Disla, PT Procedures EXTREMITY INITIAL Podiatry/Foot and [facility]le Surgery CENTER [address] [place] [address] [place] [address] [place] [address] Referral ID Status Reason Start Date Expiration Date Visits V isits Requested Authorized LINUS/BC/LFOOT Closed 07/03/2016 06/10/2017 20 18 Encounter Details Date Type Department Care Team Description 07/24/2016 [facility], [facility]; Rehabilitation PT Aftercare following surgery of the [facility] Services [facility] [address] [place] [address] [place], [place] [phone] [address] Social History Tobacco Use Types Packs/Day [...] How often do you attend yazidism or protestant Patient refused 08/08/2019 services? Do [...] Associated Diagnosis Comme nts Z NEUROMUSCULAR Routine 07/24/2016 1:51 PM Ankle pain, left RE-EDUCATION PEDIATRIC CARDIOLOGIST Aftercare following surgery of the musculoskeletal system Z THERAPEUTIC Routine 07/24/2016 1:51 PM Ankle pain, l eft EXERCISES PEDIATRIC CARDIOLOGIST Aftercare following surgery of the musculoskeletal system [...] documented as of this encounter Care Teams Nutritionists Relationship Specialty Start Date End Date Vanda Guerrero MD PCP - General Internal Medicine 04/08/15 01/08/19 [address] [facility] [place] [address] Vanda Guerrero MD PCP - Assigned PCP 07/24/16 06/15/[address] [place] [address] [place] [address] documented as of this encounter
--- OUTSIDE RECORDS SUMMARY | 2022-01-17 22:12 | XMS_ITS | Encounter Summary ---
:1965 Author Organization [facility] Address [address] [place] [address] Care Team Providers Name Role Phone Vanda Guerrero MD Primary Care Provider [phone] Reason for Visit Reason Comments Surgical Followup Left peroneal tendon repair and transfer DOS 06/10/16 Encounter Details Date Type Department Care Team Description 07/18/2016 Office Visit [facility] Agatha Null, Post-op [facility] DPM, Podiatry/Foot (Primary Dx) [address] [facility] [place] [address] [place] [address] [address] [address] [place], [place] [address] (Wo rk) Social History Tobacco Use Types [...] often do you attend latter day or uatsdin Patient refused 08/08/2019 services? Do [...] Sign Reading Time Taken Comments Blood Pressure 118/78 07/18/2016 9:54 AM BOBBIN INSPECTOR Pulse - - Temperature - - Respiratory Rate - - Oxygen Saturation - - Inhaled Oxygen Concentration - - Weight 86.6 kg (191 lb) 07/18/2016 9:54 AM BOBBIN INSPECTOR Height 157.5 cm (5' 2) 07/18/2016 9:54 AM BOBBIN INSPECTOR Body Mass Index 34.93 07/18/2016 9:54 AM BOBBIN INSPECTOR documented in this encounter Patient Instructions Patient InstructionsLarry Michael - 07/18/2016 10:[address] [facility] Schedule Follow up in 1 month Sunday AM Sunday [facility] [address] [address] [facility] [address] [address] [place] [address] [facility] [address] [place] [address] Sunday PM & Sunday AM Sunday PM Surgery Scheduling Line: [phone] [facility] [place] [address] [place] [address] [facility] [address] [place] [address] Appointment [phone] General After Hours: Patient [phone] IN INSPECTOR documented in this encounter Progress Notes Agatha Null, MARÍA, Podiatry/Foot and Ankle Surgery - 07/18/2016 9:58 AM BOBBIN INSPECTOR Podiatry / Foot and Ankle Surgery Progress Note July 18, 2016 Subject: Patient was seen for follow up on left ankle surgery. Notes she is doing well. Says PT is helping a lot. Denies fever, chills, nausa. Has been walking a little in the boot without discomfort. No concerns. Today. Objective: Vitals: Ht 5' 2 (1.575 m) Wt 191 lb (86.637 kg) BMI 34.93 kg/m2 LMP 10/30/2011 BMI= Body mass index is 34.93 kg/(m^2). General: Patient is alert and orientated. NAD Incision is well healed. Minimal swelling to foot. CFT's < 3 secs. Assessment: Post-operative state Plan: At this time, will continue to progress patient walking in the boot. She will follow up in 1 month for reassessment and progression into shoes and ankle brace. Was told to call with questions or concerns. Agatha Null DPM, Pod Weight management plan: Patient was referred to their PCP to discuss a diet and exercise plan. CST documented in this encounter Nursing Notes Larry Michael - 07/18/2016 9:59 AM CST Chief Complaint Patient presents with ??? Surgical Followup Left peroneal tendon repair and transfer DOS 06/10/16 Initial BP 118/78 mmHg Ht 5' 2 (1.575 m) Wt 191 lb (86.637 kg) BMI 34.93 kg/m2 LMP 10/30/2011 Estimated body mass index is 34.93 kg/(m^2) as calculated from the following: Height as of this encounter: 5' 2 (1.575 m). Weight as of this encounter: 191 lb (86.637 kg). Medication Reconciliation: complete Larry Michael MA IN INSPECTOR documented in this encounter Plan of Treatment Not on filedocumented as of this encounter Visit Diagnoses Diagnosis Post-operative state - Primary Other postprocedural status documented in this encounter Additional Health Concerns Assessment Noted Time PHQ-9 Depression Total Score: 11 05/02/2016 7:09 AM CS T documented as of this encounter Care Teams Maintenance Services Dispatcher Relationship Specialty Start Date End Date Vanda Guerrero MD PCP - General Internal Medicine 04/08/15 01/08/19 [address] [facility] [place] [address] documented as of this encounter
--- OUTSIDE RECORDS SUMMARY | 2022-01-17 22:12 | XMS_ITS | Encounter Summary ---
:1965 Author Organization [facility] Address [address] [place] [address] Care Team Providers Name Role Phone Vanda Guerrero MD Primary Care Provider [phone] Reason for Visit Reason Comments Foot Problems recheck afte MRI Encounter Details Date Type Department Care Team Description 05/16/2016 Office Visit [facility] Agatha Null, Foot pa in, bilateral (Primary Dx); [facility] [place] DPM, Podiatry/Foot Peroneal tendon tear, left, initial encounter; [address] [facility] Peroneal tendon tear, right, initial enc ounter; [place] [address] Seda capellan vus, congenital; [address] [address] Fibromyalgia; [phone] [place], [place] Type 2 diabet es mellitus without complication, without long-term current use of insulin (H) [address] (Wo rk) Social History Tobacco Use Types [...] How often do you attend amish or catholic Patient refused 08/08/2019 services? Do [...] Sign Reading Time Taken Comments Blood Pressure 124/80 05/16/2016 9:43 AM TURRET PRESS OPERATOR Pulse - - Temperature - - Respiratory Rate - - Oxygen Saturation - - Inhaled Oxygen Concentration - - Weight 86.7 kg (191 lb 3.2 oz) 05/16/2016 9:43 AM TURRET PRESS OPERATOR Height 157.5 cm (5' 2) 05/16/2016 9:43 AM TURRET PRESS OPERATOR Body Mass Index 34.97 05/16/2016 9:43 AM TURRET PRESS OPERATOR documented in this encounter Patient Instructions Patient InstructionsAgatha Null DPM, Podiatry/Foot and Ankle Surgery - 05/16/2016 10:[address] Null can be found at these clinics: Sunday AM [facility] [address] [place] [address] Sunday PM Surgery Sunday All Day [facility] [address] [place] [address] Sunday [facility] [address] [address] [facility] [place], [place] [id number] All Day surgery Sunday [facility] [place] [address], [address] [place], [place] [address] Sunday PM [facility] [address] [facility], [address] [place] [address] TO SCHEDULE SURGERY, call Yecenia at [phone]. To Schedule appointments call: [phone] General (after hours): Patient [phone] POTENTIAL COMPLICATIONS OF FOOT AND ANKLE SURGERY Undergoing a surgical procedure involves a certain amount of risk. Risk of complications vary depending on the complexity of the surgery and how you take care of the surgical area during the healing process. Complications can range from minor infection to . Some complications are temporary while others will be permanent. Your surgeon weighs the risk of complications vs the potential benefit of undergoing surgery. You need to consider your tolerance for unexpected problems as you decide whether to undergo surgery. Foot and Ankle surgery involves cutting skin, bone, ligaments, blood vessels and joints. these structures heal well but not without consequence. Any break to the skin can lead to infection. A deep infections involves bone or joint which can be devastating. Deep infection can lead to amputation or could spread to other parts of your body. Most infections are minor and easily treated with oral antibiotics. Infections are often times from bacteria already present on your skin. Proper care of the surgical site is an essential component of avoiding infection. Do not get the bandage wet and take proper care of external pins to avoid these problems. Joint stiffness is inherent to any foot or ankle surgery. Joint surgery is a major component of reconstructive foot and ankle procedures. The ligaments and tissues around the joint are cut, then later repaired. Scare tissue limits joint mobility. This can be permanent but generally improves over the course of one year. Surgery involves dissection around nerves. Visible nerves are moved out of the way while very small nerves are cut. Scar tissue develops around nerves and can lead to nerve pain, numbness, or neuromas.Nerve symptoms can be permanent. This can lead to numbness or sometimes hypersensitivity to touch and problems wearing shoes. Bones do not always heal after surgery. Poor healing after a bone cut or joint fusion can lead to anextended period of casting or repeat surgery. Electronic bone stimulators are sometimes used to stimulate poor healing of bone. Nonunion is when joint fusion does not take. This can occur as often as 10% of the time. Smoking double your risk of poor bone healing to 20%. Bone grafting is sometimes necessary during the original or subsequent surgery. Bone is sometimes taken from other parts of your body or freeze dried bone from a bone bank from a bone bank or syntheticbone material might be used. A scar is always present after foot and ankle surgery. The scar will be visible and could be sensitive. Some people develop excessive scarring, which cannot be controlled by the surgeon. Scars can be unsightly and can restrict joint mobility. Blood clots can develop in the calf after surgery. Foot and ankle surgery is a predisposing factor for blood clots. The blood clot could break and travel to your lung. This condition can lead to .Early warning signs could include calf swelling and pain, chest pain or shortness of breath. This isan emergency that requires immediate attention by a medical doctor! Surgery will not necessarily create a pain-free foot. Even normal feet hurt. Crooked toes, bunions, neuromas, flat feet and arthritis should all be considered permanent conditions. Ankle pain commonly requires multiple surgeries over a lifetime. Do not assume that having surgery will permanently fix your condition. You may need permanent alteration in shoes and activities to accommodate your foot andankle problem. Careful attention to post-operative recommendations will dramatically reduce your risk of complications. Proper dressing, wound care, elevation and rest will be essential to get the wound healed and minimize scarring. Strict attention to activity restrictions, such as non-weight bearing, or partial weight bearing is essential. Internal fixation devices may not not resist the stress of walking. Some select surgeries allow the patient to walk, however this should be very minimal. Despite these concerns, foot and ankle surgery leads to a high level of patient satisfaction. Your surgeon would not recommend surgery if he/she did not expect your foot to improve. Talk to your surgeon about any of the above issues. Reviewed and discussed causes of achilles tendonitis. We discussed treatments such as immobiliation,icing, stretching, heel lifts, orthotics, physical therapy, MRI. CST documented in this encounter Progress Notes Agatha Null DPM, Podiatry/Foot and Ankle Surgery - 05/16/2016 1:39 PM TURRET PRESS OPERATOR Podiatry / Foot and Ankle Surgery Progress Note May 16, 2016 Subject: Patient was seen for follow up on MRI results. Notes left foot pain is the worse. Braces help some. It will shoot into her calfs. Objective: Vitals: BP 124/80 mmHg Ht 5' 2 (1.575 m) Wt 191 lb 3.2 oz (86.728 kg) BMI 34.96 kg/m2 LMP 10/30/2011 BMI= Body mass index is 34.96 kg/(m^2). A1C: 6.1 (04/2016) Surgical history: Previous L5-S1 surgery x 2. General: Patient is alert and orientated. NAD Dermatologic: Skin is intact to both lower extremities without significant lesions, rash or abrasion.?? No paronychia or evidence of soft tissue infection is noted. ? Vascular: DP & PT pulses are intact & regular bilaterally.? edema and varicosities noted.?? CFT and skin temperature is normal to both lower extremities. ? Neurologic: Lower extremity sensation is intact via semmes geo. ? Musculoskeletal: Patient is ambulatory without assistive device or brace.?? Increase arch height. Pain on palpation of the peroneal tendon insertion both feet. Left is worse Radiographs:?? No fractures noted.?? Increase arch height. Imaging: Left MRI: 1. 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 Clinical significance of this finding is uncertain and clinical correlation for any pain or tenderness related to this region is recommended. 2. Longitudinal split type tear of the peroneus brevis tendon. 3. Probable very early degenerative change at the navicular medial cuneiform joint. Right MRI: 1. 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 This is potentially symptomatic and clinical correlation for pain in this region is recommended. 2. Longitudinal split-type tear of the peroneus brevis tendon. 3. Focus of mild subchondral bone marrow edema in the proximal aspect of the medial cuneiform bone of uncertain significance. This may be related to early degenerative change but a minimal stress injury is not excluded. Assessment: Foot pain, bilateral Peroneal tendon tear, left, initial encounter Peroneal tendon tear, right, initial encounter Pes cavus, congenital Fibromyalgia Type 2 diabetes mellitus without complication, without long-term current use of insulin (H) Plan: Had along discussion with patient about MRI results and options. Recommend repair of peroneal tendons however, discussed there could be a nerve component to the pain in the foot stemming from theback that surgery will not help. Do feel that repairing the tendons will improve a majority of the pain but discussed she may have residual pain afterwards. Talked about risks including infection, numbness, continued pain, non union, need for further surgery, blood loss, blood clotting. You will scar. She would be non weight bearing for 4-6 weeks followed by 4 weeks minimal weight bearing in boot. She will call to schedule surgery. Dermatologic: Skin is intact to both lower extremities without significant lesions, rash or abrasion.?? No paronychia or evidence of soft tissue infection is noted. ? Vascular: DP & PT pulses are intact & regular bilaterally.?? No significant edema or varicosities noted.?? CFT and skin temperature is normal to both lower extremities. ? Neurologic: Lower extremity sensation is intact to light touch.?? No evidence of weakness or contracture in the lower extremities.?? No evidence of neuropathy. ? Musculoskeletal: Patient is ambulatory without assistive device or brace. Semi flexible contracturestoes 2-4. Increase arch height. Pain on palpation of the plantar left 2nd metatarsal head distally. RAdiographs: negative for fractures. ?? 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 Clinical significance of this finding is uncertain and clinical correlation for any pain or tenderness related to this region is recommended. 2. Longitudinal split type tear of the peroneus brevis tendon. 3. Probable very early degenerative change at the navicular medial cuneiform joint. 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 This is potentially symptomatic and clinical correlation for pain in this region is recommended. 2. Longitudinal split-type tear of the peroneus brevis tendon. 3. Focus of mild subchondral bone marrow edema in the proximal aspect of the medial cuneiform bone of uncertain significance. This may be related to early degenerative change but a minimal stress injury is not excluded. Assessment. Foot pain, bilateral Peroneal tendon tear, left, initial encounter Peroneal tendon tear, right, initial encounter Pes cavus, congenital Fibromyalgia Type 2 diabetes mellitus without complication, without long-term current use of insulin (H) Plan: Long discussion with patient on MRI results. Discussed tears of peroneal tendon. Do feel that this is causing her a lot of her pain but also discussed that she could have a nerve component to this from her lower back issues, recommend surgery I feel that will help with the pain and stabilize thetendon and ankle but discussed she may have residual pain after surgery do to the above issue. Talked about risks including infection, numbness, continued pain, non union, need for further surgery, blood loss, blood clotting. You will scar. She will be non weight bearing for 4-6 weeks follow by minimal weight bearing for 4 weeks in cast boot. All questions answered. She will call to schedule. DIAGNOSIS: left peroneal tendon tear PROCEDURES: Left peroneal tendon repair/transfer Site: Left Length of case: 60 min [place]: No ANESTHESIA: General Popliteal Block: Yes Tourniquet: t high PATIENT POSITION: Lateral left up Antibiotics: Give before surgery Same day EQUIPMENT: Mini c-arm, podiatry set, tenotomy scissors, 2-prolene,and 3-0 fiberwire Agatha Null DPM, Pod Weight management plan: Patient was referred to their PCP to discuss a diet and exercise plan. CST documented in this encounter Nursing Notes Larry Michael - 05/16/2016 9:47 AM CST Chief Complaint Patient presents with ??? Foot Problems recheck afte MRI Initial BP 124/80 mmHg Ht 5' 2 (1.575 m) Wt 191 lb 3.2 oz (86.728 kg) BMI 34.96 kg/m2 LMP 10/30/2011 Estimated body mass index is 34.96 kg/(m^2) as calculated from the following: Height as of this encounter: 5' 2 (1.575 m). Weight as of this encounter: 191 lb 3.2 oz (86.728 kg). BP completed using cuff size: regular Larry Michael MA ET PRESS OPERATOR documented in this encounter Plan of Treatment Not on filedocumented as of this encounter Visit Diagnoses Diagnosis Foot pain, bilateral - Primary Peroneal tendon tear, left, initial enco unter Peroneal tendon tear, right, initial enc ounter Pes cavus, congenital Talipes cavus Fibromyalgia Mylagia and myositis, unspecified Type 2 diabetes mellitus without complic ation, without long-term current use of insulin (H) documented in this encounter Additional Health Concerns Assessment Noted Time PHQ-9 Depression Total Score: 11 05/02/2016 7:09 AM CS T documented as of this encounter Care Teams Radio Antenna Installer Relationship Specialty Start Date End Date Vanda Guerrero MD PCP - General Internal Medicine 04/08/15 01/08/19 [address] [facility] [address] [place], [place] [address] documented as of this encounter
--- OUTSIDE RECORDS SUMMARY | 2022-01-17 22:12 | XMS_ITS | Encounter Summary ---
:1965 Author Organization [facility] Address [address] [place] [address] Care Team Providers Name Role Phone Vanda Guerrero MD Primary Care Provider [phone] Vanda Guerrero MD Unavailable Reason for Visit LINUS Physical Therapy (Routine) - Closed Specialty Diagnoses / Procedures Referred By Contact Refer red To Contact Physical Therapy Diagnoses new pt needs paperwork post peroneal tendon repair surgery left foot. / Agatha Null DPM, Pod @ Cr Podiatry Agatha Null DPM, Candy Disla, PT Procedures EXTREMITY INITIAL Podiatry/Foot and [facility] [address] [place] [place] [address] [place] [address] Referral ID Status Reason Start Date Expiration Date Visits V isits Requested Authorized LINUS/BC/LFOOT Closed 07/03/2016 06/10/2017 20 18 Encounter Details Date Type Department Care Team Description 08/04/2016 [facility], Ankle p ain, left; Rehabilitation PT Aftercare following surgery of the [facility] Services [facility] [address] [facility] [address] [place] [address] [place], [place] [phone] [address] Social History Tobacco Use Types Packs/Day [...] How often do you attend religious or sabianism Patient refused 08/08/2019 services? Do [...] Associated Diagnosis Comme nts Z NEUROMUSCULAR Routine 08/04/2016 10:35 AM Ankle pain , left RE-EDUCATION INSPECTOR BALANCE TRUING Aftercare following surgery of the musculoskeletal system Z THERAPEUTIC Routine 08/04/2016 10:35 AM Ankle pain, left EXERCISES INSPECTOR BALANCE TRUING Aftercare following surgery of the musculoskeletal system documented in this encounter Visit Diagnoses Diagnosis Ankle pain, left Pain in joint, ankle and foot Aftercare following surgery of the muscu loskeletal system Aftercare following [facility], [facility] documented in this encounter Additional Health Concerns Assessment Noted Time PHQ-9 Depression Total Score: 11 05/02/2016 7:09 AM CS T documented as of this encounter Care Teams Graphic Engineer Relationship Specialty Start Date End Date Vanda Guerrero MD PCP - General Internal Medicine 04/08/15 01/08/[address] [facility] [place] [address] Vanda Guerrero MD PCP - Assigned PCP 07/24/16 06/15/[address] [place] [address] [place] [id number] documented as of this encounter
--- OUTSIDE RECORDS SUMMARY | 2022-01-17 22:12 | XMS_ITS | Encounter Summary ---
:1965 Author Organization [facility] Address [address] [place] [address] Care Team Providers Name Role Phone Vanda Guerrero MD Primary Care Provider [phone] Reason for Visit (Routine) - Closed Specialty Diagnoses / Procedures Referred By Contact Refer red To Contact Radiology / Diagnoses Epic order sb Rh Ultrasound cc Radiology. Procedures US PELVIC COMP W TRANSVAGINAL [address] [place] [address] Phone: Fax: Referral ID Status Reason Start Date Expiration Date Visits Requ ested Visits Authorized [id number] Closed 05/05/2016 05/05/2017 1 1 Encounter Details Date Type Department Care Team Description 05/05/2016 [facility] Vanda Guerrero opausal Encounter [facility] [address] [place] [address] [place] [address] [address] [place], [place] (Work) [address] Social History Tobacco Use Types Packs/Day [...] How often do you attend restoration or yazidi Patient refused 08/08/2019 services? Do you belong to any clubs or organizations such as No 08/08/2019 restoration groups, Jibestreams, fraAirClic or athletic groups, or school groups? How [...] 2 diabetes, HbA1c goal < 7% (H) JAY NOT PRESCRIBED, JAY Inhibitor not [...] MG tabletIndications: mg) by mouth daily Anxiety diclofenac (VOLTAREN) 1 Apply 2 grams to 100 g 1 201506/08/2016 % GELIndications: Pain foot four times in both feet, Peroneal daily as needed for tendinitis of left lower pain using enclosed extremity, Peroneal dosing card. tendinitis of right lower extremity, Pes cavus, congenital, Venous insufficiency of both lower extremities, Fibromyalgia, Type 2 diabetes mellitus without complication, without long-term current use of insulin (H), Non morbid obesity, unspecified obesity type DULoxetine (CYMBALTA) 30 Take 1 capsule (30 180 capsule 2 08/17/2016 MG capsuleIndications: mg) by mouth 2 Fibromyalgia times daily estradiol (ESTRACE) 0.1 Place 2 g vaginally 42.5 g 11 04/09/2018 MG/GM vaginal each night for 2 creamIndications: weeks, then use Symptomatic menopausal three times weekly or female climacteric states fluticasone (FLONASE) 50 [place] 1-2 sprays 3 Bottle 3 05/0306/12/2017 MCG/ACT [...] Gastroesophageal reflux disease without esophagitis order for Equipment being 2 Device 0 [...] 4 Take 1-2 tablets 90 tablet 5 201506/05/2016 MG tabletIndications: (4-8 mg) by mouth 2 [...] Priority Date/Time Associated Diagnosis Comme nts US PELVIC Routine 05/05/2016 2:41 Postmenopausal Results fo r this TRANSABDOMINAL AND PM ELECTRIC FAN ASSEMBLER bleeding procedure are in TRANSVAGINAL the results section. documented in this encounter Results US Pelvic Complete with Transvaginal (05/05/2016 2:41 PM ELECTRIC FAN ASSEMBLER) Anatomical Region Laterality Modality Abdomen/Pelvis Ultrasound Specimen (Source) Anatomical Location Collection Method / Collectio n Time Received Time / Laterality Volume Impressions 05/05/2016 3:32 PM ELECTRIC FAN ASSEMBLER IMPRESSION: 3.2 cm intramural fibroid. No endometrial thickening. Minimal free pelvic fluid is noted. Ovar ies are unremarkable and appear atrophic. DWIGHT LOZA MD Narrative 05/05/2016 3:32 PM ELECTRIC FAN ASSEMBLER US PELVIC COMPLETE WITH TRANSVAGINAL 05/05/2016 2:41 PM HISTORY: Postmenopausal bleeding FINDINGS: Transvaginal images were perfo rmed to better evaluate the patient's uterus, ovaries and endometria l stripe. The uterus is normal in size measuring 8 .5 x 3.8 x 3.9 cm. An intramural anterior fundal fibroid measu res 3.2 x 2.1 x 3.1 cm. This fibroid is very close to the endometrial stripe, but appears to only abut the junctional zone. Endometrial st ripe measures less than 2 mm and is normal for patient's age. The rig ht ovary is normal measuring 1.6 x 0.9 x 1.0 cm. The left ovary is no rmal measuring 0.8 x 0.7 x 0.8 cm. No adnexal masses are present. A min imal amount of free pelvic fluid is present. Procedure Note Dwight Loza MD - 05/05/2016Form atting of this note might be different from the original. US PELVIC COMPLETE WITH TRANSVAGINAL 2:41 PM HISTORY: Postmenopausal bleeding FINDINGS: Transvaginal images were perfo rmed to better evaluate the patient's uterus, ovaries and endometria l stripe. The uterus is normal in size measuring 8 .5 x 3.8 x 3.9 cm. An intramural anterior fundal fibroid measu res 3.2 x 2.1 x 3.1 cm. This fibroid is very close to the endometrial stripe, but appears to only abut the junctional zone. Endometrial st ripe measures less than 2 mm and is normal for patient's age. The rig ht ovary is normal measuring 1.6 x 0.9 x 1.0 cm. The left ovary is no rmal measuring 0.8 x 0.7 x 0.8 cm. No adnexal masses are present. A min imal amount of free pelvic fluid is present. IMPRESSION: 3.2 cm intramural fibroid. N o endometrial thickening. Minimal free pelvic fluid is noted. Ovar ies are unremarkable and appear atrophic. DWIGHT LOZA MD Vanda Guerrero MD IMG US ORDERABLES documented in this encounter Visit Diagnoses Diagnosis Postmenopausal bleeding documented in this encounter Additional Health Concerns Assessment Noted Time PHQ-9 Depression Total Score: 11 05/02/2016 7:09 AM CS T documented as of this encounter Care Teams Manugrapher Relationship Specialty Start Date End Date Vanda Guerrero MD PCP - General Internal Medicine 04/08/15 01/08/[address] [place], [place] [address] documented as of this encounter
--- OUTSIDE RECORDS SUMMARY | 2022-01-17 22:12 | XMS_ITS | Encounter Summary ---
:1965 Author Organization [facility] Address [address] [place] [address] Care Team Providers Name Role Phone Vanda Guerrero MD Primary Care Provider [phone] Reason for Visit [facility] Physical Therapy (Routine) - Closed Specialty Diagnoses / Procedures Referred By Contact Refer red To Contact Physical Therapy Diagnoses new pt needs paperwork post peroneal tendon repair surgery left foot. / Agatha Null DPM, Pod @ [facility] Agatha Null DPM, Candy Disla, PT Procedures EXTREMITY INITIAL Podiatry/Foot and [facility] Ankle Surgery CENTER [address] [place] [address] [facility] [address] [place] [address] [place] [address] Referral ID Status Reason Start Date Expiration Date Visits V isits Requested Authorized LINUS/BC/LFOOT Closed 07/03/2016 06/10/2017 20 18 Encounter Details Date Type Department Care Team Description 07/03[facility]2016 [facility] following surgery of the musculoskeletal system (Primary Dx); Rehabilitation PT Ankle pain, left Services [place] [address] [place] [address] [place], [place] [phone] [address] Social History Tobacco Use Types Packs/Day [...] 08/08/2019 relatives? How often do you attend bahai or episcopal Patient refused 08/08/2019 services? Do you belong to any clubs or organizations such as No 08/08/2019 bahai groups, unions, fraternal or athletic groups, or [...] documented as of this encounter Progress Notes Cristy Sloan - 07/04/2016 6:56 AM CST Subjective: Pertinent medical history includes: Diabetes, overweight, depression and migraines. Medical allergies: no. Other surgeries include: Orthopedic surgery. Current medications: Pain medication, muscle relaxants and anti-depressants. 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 Objective: System Physical Exam General ROS Assessment/Plan: WORK WASHER Candy Disla, PT - 07/03/2016 10:04 AM CST [facility] Initial Evaluation Subjective: Megan Choi is a 51 year old female with a left ankle condition. Condition occurred with: Insidious onset. Condition occurred: for unknown reasons. This is a new condition Pt is reporting chronic L ankle pain that came on insidiously. Pt underwent L ankle peroneal tendon repair on 06/08/[address] Null. Currently NWBing with a roll about. Is able to start WBAT, with a CAM and crutches next week. Has been taking IBprofen for pain.. Patient reports pain: Lateral. Radiates to: No radiation. Pain is described as sharp and is constantand reported as 4/10, 6/10 and 7/10. Associated symptoms: Tingling, numbness, edema, loss of motion/stiffness and loss of strength (cold ). Pain is the same all the time. Symptoms are exacerbated by activity (wearing the CAM) and relieved by NSAID's and ice. Since onset symptoms are gradually improving. Previous treatment includes surgery. There was mild improvement following previous treatment. General health as reported by patient is good. Objective: Gait: Roll about Weight Bearing Status: NWB Assistive Devices: CAM Flexibility/Screens: Lower Extremity: Decreased left lower extremity flexibility:Gastroc and Soleus Ankle/Foot Evaluation ROM: AROM: Dorsiflexion: Left: -2 Right: 8 Plantarflexion: Left: 40 Right: 64 Inversion: Left: 10 Right: 16 Eversion: 14 Right: 22 Strength: Dorsiflexion: Left: 4+/5 Pain: Right: 3+/5 Pain:+ Plantarflexion: Left: 5/5 Pain: Right: 4-/5 Pain: Inversion:Left: 4-/5 Pain: Right: 5/5 Pain: Eversion:Left: 3/5 Pain: Right: 4-/5 Pain:++ LIGAMENT TESTING: not assessed SPECIAL TESTS: not assessed EDEMA: Left ankle edema present at: 54.5 cm Right ankle edema present at: 55 cm Figure 8 left: 54.5 cmFigure 8 right: 55 cm MOBILITY TESTING: Mobility testing ankle: did not assess talocrural or subtalar jt mobility at this time. First Ray Left: normal General ROS Assessment/Plan: Patient is a 51 year old female with left side ankle complaints. Patient has the following significant findings with corresponding treatment plan. Diagnosis 1: S/p L peroneal repair (DOS 06/08/2016) Pain - hot/cold therapy, manual therapy, education and home program Decreased ROM/flexibility - manual therapy and therapeutic exercise Decreased strength - therapeutic exercise and therapeutic activities Impaired balance - neuro re-education and therapeutic activities Decreased proprioception - neuro re-education and therapeutic activities Edema - cold therapy Impaired gait - gait training Impaired muscle performance - neuro re-education Decreased function - therapeutic activities Therapy Evaluation Codes: 1) History comprised of: Personal factors that impact the plan of care: Overall behavior pattern and Profession. Comorbidity factors that impact the plan of care are: Diabetes, Depression, Migraines/headaches and Overweight. Medications impacting care: Anti-depressant, Muscle relaxant and Pain. 2) Examination of Body Systems comprised of: Body structures and functions that impact the plan of care: Ankle. Activity limitations that impact the plan of care are: Bathing, Driving, Dressing, Jumping, Lifting, Running, Squatting/kneeling, Stairs, Standing, Walking and Working. 3) Clinical presentation characteristics are: Stable/Uncomplicated. 4) Decision-Making Low complexity using standardized patient assessment instrument and/or measureable assessment of functional outcome. Cumulative Therapy Evaluation is: Low complexity. Previous and current functional limitations: (See Goal Flow Sheet for this information) Short term and [facility] goals: (See Goal Flow Sheet for this [...] normal activities. Rehab potential is good. Frequency: 2 X week, once daily Duration: for 4 weeks tapering to 1 X a week over 6 weeks Discharge Plan: Achieve all LTG. Independent in home treatment program. Reach maximal therapeutic benefit. Please refer to the daily flowsheet for treatment today, total treatment time and time spent performing 1:1 timed codes. WORK WASHER documented in this encounter Plan of Treatment Not on filedocumented as of this encounter Procedures Procedure Name Priority Date/Time Associated Diagnosis Comme [facility] THERAPEUTIC Routine 07/03/2016 2:19 PM Aftercare following EXERCISES FLATWORK WASHER surgery of the musculoskeletal system Ankle pain, left documented in this encounter Visit Diagnoses Diagnosis Aftercare following surgery of the muscu loskeletal system - Primary Aftercare [facility], NEC Ankle pain, left Pain in joint, ankle and foot documented in this encounter Additional Health Concerns Assessment Noted Time PHQ-9 Depression Total Score: 11 05/02/2016 7:09 AM CS T documented as of this encounter Care Teams Cloth Measurer Relationship Specialty Start Date End Date Vanda Guerrero MD PCP - General Internal Medicine 04/08/15 01/08/19 [address] [facility] [place] [address] documented as of this encounter
--- OUTSIDE RECORDS SUMMARY | 2022-01-17 22:12 | XMS_ITS | Encounter Summary ---
:1965 Author Organization [facility] Address [address] [place] [address] Care Team Providers Name Role Phone Vanda Guerrero MD Primary Care Provider [phone] Encounter Details Date Type Department Care Team Description 05/22/2016 Orders Only [facility] Agatha Null, Peronea l tendon tear, left, subsequent encounter (Primary Dx); Clinic Pako DPM, Podiatry/Foot Post-operative state [address] [facility] [place] and Ankle Surgery [place] [id number] [place] [phone] [facility] [address] [place], [place] [id number] (Wo rk) Social History Tobacco Use Types [...] How often do you attend spiritism or roman catholic Patient refused 08/08/2019 services? [...] as of this encounter Visit Diagnoses Diagnosis Peroneal tendon tear, left, subsequent e ncounter - Primary Post-operative state Other postprocedural status documented in this encounter Additional Health Concerns Assessment Noted Time PHQ-9 Depression Total Score: 11 05/02/2016 7:09 AM CS T documented as of this encounter Care Teams Fashion Buying Internship Relationship Specialty Start Date End Date Vanda Guerrero MD PCP - General Internal Medicine 04/08/15 01/08/[address] [facility] [address] documented as of this encounter
--- OUTSIDE RECORDS SUMMARY | 2022-01-17 22:12 | XMS_ITS | Encounter Summary ---
:1965 Author Organization [facility] Address [address] [place] [address] Care Team Providers Name Role Phone Vanda Guerrero MD Primary Care Provider [phone] Reason for Visit Reason Onset Date Comments Medication Question 05/08/2016 interactions with me ds Encounter Details Date Type Department Care Team Description 05/08/2016 Telephone [facility] Vanda Lal Medication Question [address] [facility] MD Catarino (interactions with [place] [id number] [place] [address]) [phone] [facility] [place] [address] (Wo rk) Social History Tobacco Use Types [...] 08/08/2019 relatives? How often do you attend congregation or orthodox Patient refused 08/08/2019 services? Do you belong to any clubs or organizations such as No 08/08/2019 congregation groups, unions, fraternal or athletic groups, or [...] this encounter Miscellaneous Notes Telephone Encounter - Kalile Mishra RN - 05/08/2016 6:07 PM CST Gave verbal ok to pharmacist. D SOFTWARE ENGINEER Telephone Encounter - Vanda Guerrero MD - 05/08/2016 3:34 PM CLOUD SOFTWARE ENGINEER Patient has been on this combination joint terminal attack controller, is tolerating well, and is being followed closely. OK to fill. Please call pharmacy. D SOFTWARE ENGINEER Telephone Encounter - Graciela Barone RN - 05/08/2016 3:07 PM CST Cara pharmacist from [facility] calling regarding medication interactions with Citalopram. Omeprazole and Tizanidine in conjunction with Omeprazole may increased the QT interval. Cymbalta also interacts with Citalopram-increased serotonin. Please call pharmacist at [phone], if ok to continue these medications. Iain Barone RN D SOFTWARE ENGINEER documented in this encounter Plan of Treatment Not on filedocumented as of this encounter Visit Diagnoses Not on filedocumented in this encounter Additional Health Concerns Assessment Noted Time PHQ-9 Depression Total Score: 05/02/2016 7:09 AM CS T documented as of this encounter Care Teams Metal Dresser Relationship Specialty Start Date End Date Vanda Guerrero MD PCP - General Internal Medicine 04/08/15 01/08/19 [address] [facility] [place] [address] documented as of this encounter
--- OUTSIDE RECORDS SUMMARY | 2022-01-17 22:12 | XMS_ITS | Encounter Summary ---
:1965 Author Organization [facility] Address [address] [place] [address] Care Team Providers Name Role Phone Vanda Guerrero MD Primary Care Provider [phone] Reason for Visit Reason Onset Date Comments Schedule Surgery 05/17/2016 Encounter Details Date Type Department Care Team Description 05/17/2016 Telephone [facility] Agatha Null, MARÍA, Schedule Surgery [place] [facility]/Foot and [address] [place] [address] Ankle Surgery [place], [place] [phone] [place] [address] [address] [place] [phone] [facility] [phone] [place], [place] [address] (Wo rk) Social History [...] How often do you attend samaritan or anabaptism Patient refused 08/08/2019 services? Do [...] Notes Telephone Encounter - Dafne Doll - 05/17/2016 11:40 AM CST Surgery scheduled for 06/08/16 @ 10:[address] Null [facility]. Details confirmed with patient. Thank you. ? DIAGNOSIS: left peroneal tendon tear PROCEDURES: ??Left peroneal tendon repair/transfer Site: ??Left Length of case: ??60 min [place]: ?? No ANESTHESIA: General Popliteal Block: ??Yes Tourniquet: t high ?? PATIENT POSITION: ??Lateral left up Antibiotics: ??Give before surgery Same day EQUIPMENT: ??Mini c-arm, podiatry set, tenotomy scissors, 2-prolene,and 3-0 fiberwire E SANE documented in this encounter Plan of Treatment Not on filedocumented as of this encounter Visit Diagnoses Not on filedocumented in this encounter Additional Health Concerns Assessment Noted Time PHQ-9 Depression Total Score: 11 05/02/2016 7:09 AM CS T documented as of this encounter Care Teams Apprentice Technician Relationship Specialty Start Date End Date Vanda Guerrero MD PCP - General Internal Medicine 04/08/15 01/08/19 [address] [facility] [place] [address] documented as of this encounter
--- OUTSIDE RECORDS SUMMARY | 2022-01-17 22:12 | XMS_ITS | Encounter Summary ---
:1965 Author Organization [facility] Address [address] [place] [address] Care Team Providers Name Role Phone Vanda Guerrero MD Primary Care Provider [phone] Reason for Visit [facility] Physical Therapy (Routine) - Closed Specialty Diagnoses / Procedures Referred By Contact Refer red To Contact Physical Therapy Diagnoses new pt needs paperwork post peroneal tendon repair surgery left foot. / Agatha Null DPM, Pod @ [facility] Agatha Null DPM, Candy Disla, PT Procedures EXTREMITY INITIAL Podiatry/Foot and [facility] Ankle Surgery CENTER [address] [place] [address] [address] [place] [address] [place] [address] Referral ID Status Reason Start Date Expiration Date Visits V isits Requested Authorized LINUS/BC/LFOOT Closed 07/03/2016 06/10/2017 20 18 Encounter Details Date Type Department Care Team Description 07/05/2016 [facility] p ain, left (Primary Dx); Rehabilitation PT Aftercare following surgery of the [facility] loskeletal system Services [facility] [address] [facility] [address] [place] [address] [place], [place] [phone] [address] Social History Tobacco Use Types Packs/Day [...] How often do you attend restoration or hinduism Patient refused 08/08/2019 services? 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 Aftercare following surgery of the musculoskeletal system [facility] THERAPEUTIC Routine 07/05/2016 12:44 PM Ankle pain, left EXERCISES GRAPE CRUSHER Aftercare following surgery of the musculoskeletal system documented in this encounter Visit Diagnoses Diagnosis Ankle pain, left - Primary Pain in joint, ankle and foot [facility], NEC documented in this encounter Additional Health Concerns Assessment Noted Time PHQ-9 Depression Total Score: 11 05/02/2016 7:09 AM CS T documented as of this encounter Care Teams Software Engineer Web Applications Relationship Specialty Start Date End Date Vanda Guerrero MD PCP - General Internal Medicine 04/08/15 01/08/19 [address] [facility] [place] [address] documented as of this encounter
--- OUTSIDE RECORDS SUMMARY | 2022-01-17 22:12 | XMS_ITS | Encounter Summary ---
:1965 Author Organization [place] Address [address] [place] [id number] Care Team Providers Name Role Phone Vanda Guerrero MD Primary Care Provider [phone] Reason for Visit Reason Comments Surgical Followup Left foot peroneal tendon re pair/transfer DOS 06/08/16 Encounter Details Date Type Department Care Team Description 06/13/2016 Office Visit [facility] Agatha Null, Post-op erative state (Primary Dx); [facility] [place] DPM, Podiatry/Foot Burning with urination [address] [facility] [place] [address] [place] [address] [address] [place] [address] [place] [address] (Wo rk) Social History Tobacco Use [...] How often do you attend yazdanism or evangelical Patient refused 08/08/2019 services? Do [...] Sign Reading Time Taken Comments Blood Pressure 134/82 06/13/2016 9:59 AM RN REHAB Pulse - - Temperature - - Respiratory Rate - - Oxygen Saturation - - Inhaled Oxygen Concentration - - Weight 86.6 kg (191 lb) 06/13/2016 9:59 AM RN REHAB Height 157.5 cm (5' 2) 06/13/2016 9:59 AM RN REHAB Body Mass Index 34.93 06/13/2016 9:59 AM RN REHAB documented in this encounter Patient Instructions Patient InstructionsLarry Michael - 06/13/2016 10:[address] [facility] Schedule Follow up in 1 week Sunday AM Sunday [facility] [address] [address] [facility] [address] [address] [place] [address] [facility] [address] [place] [address] Sunday PM & Sunday AM Sunday PM Surgery Scheduling Line: [phone] [facility] [address] [place] [address] [facility] [address] [place] [address] Appointment [phone] General After Hours: Patient [phone] REHAB documented in this encounter Progress Notes Agatha Null, MARÍA, Podiatry/Foot and Ankle Surgery - 06/13/2016 10:03 AM RN REHAB Podiatry / Foot and Ankle Surgery Progress Note June 13, 2016 Subject: Patient was seen for follow up on left ankle surgery. Denies fever, chills, nausa. Does note burning with urination. Is wondering if she can get checked for a UTI. Objective: Vitals: Ht 5' 2 (1.575 m) Wt 191 lb (86.637 kg) BMI 34.93 kg/m2 LMP 10/30/2011 BMI= Body mass index is 34.93 kg/(m^2). General: Patient is alert and orientated. NAD Dressing is c/d/i. Incision is well approximated. Sutures intact. No redness, dehiscence or signs ofinfection. Swelling wnl. Assessment: Post-operative state Burning with urination Plan: Dressing changed. Follow up in 1 week for suture removal. She will continue to keep foot and dressing dry. Continue non weight bearing. Will put in for urine culture and start on nitrofurantoin. Will call with results. Agatha Null DPM, Pod Weight management plan: Patient was referred to their PCP to discuss a diet and exercise plan. CST documented in this encounter Nursing Notes Larry Michael - 06/13/2016 10:04 AM CST Chief Complaint Patient presents with ??? Surgical Followup Left foot peroneal tendon repair/transfer DOS 06/08/16 Initial BP 134/82 mmHg Ht 5' 2 (1.575 m) Wt 191 lb (86.637 kg) BMI 34.93 kg/m2 LMP 10/30/2011 Estimated body mass index is 34.93 kg/(m^2) as calculated from the following: Height as of this encounter: 5' 2 (1.575 m). Weight as of this encounter: 191 lb (86.637 kg). BP completed using cuff size: kait Michael MA REHAB documented in this encounter Plan of Treatment Not on filedocumented as of this encounter Procedures Procedure Name Priority Date/Time Associated Diagnosis Comme nts URINE CULTURE Routine 06/13/2016 10:21 AM Burning with Results for this RN REHAB urination procedure are i n the results section . documented in this encounter Results (ABNORMAL) Urine Culture Aerobic Bacterial (06/13/2016 10:21 AM RN REHAB) Component Value Ref Test Analysis Performed At [facility] Range Method Time Signature Specimen Midstream Urine [facility] Culture Micro 10,000 to INFECTIOUS 50,000 DISEASE colonies/mL DIAGNOSTIC Escherichia LABORATORY coli (A) Micro Report FINAL INFECTIOUS Status 06/14/2016 DISEASE DIAGNOSTIC LABORATORY Organism: 10,000 to INFECTIOUS 50,000 DISEASE colonies/mL DIAGNOSTIC Escherichia LABORATORY coli Specimen Anatomical Collection Method Collection Time Receive d Time (Source) Location / / Volume Laterality Urine specimen 06/13/2016 10:21 7 (specimen) AM RN REHAB 10:22 AM RN REHAB Organism Antibiotic Method Susceptibility 10,000 to 50,000 Ampicillin <=2 Susceptible ug/mL colonies/ml escherichia coli (keyshawn) 10,000 to 50,000 Cefazolin <=4 Susceptible colonies/ml escherichia Cefazoli n KEYSHAWN breakpoints coli (keyshawn) are for the henry tment of uncomplicated ur inary tract infections. ??F or the treatment of sys temic infections, plea se contact the laboratory for additional testing. ug/mL 10,000 to 50,000 Cefoxitin <=4 Susceptible ug/mL colonies/ml escherichia coli (keyshawn) 10,000 to 50,000 Ceftazidime <=1 Susceptible ug/mL colonies/ml escherichia coli (keyshawn) 10,000 to 50,000 Ceftriaxone <=1 Susceptible ug/mL colonies/ml escherichia coli (keyshawn) 10,000 to 50,000 Ciprofloxacin <=0.25 Suscepti ble ug/mL colonies/ml escherichia coli (keyshawn) 10,000 to 50,000 Gentamicin <=1 Susceptible ug/mL colonies/ml escherichia coli (keyshawn) 10,000 to 50,000 Levofloxacin <=0.12 Suscepti ble ug/mL colonies/ml escherichia coli (keyshawn) 10,000 to 50,000 Nitrofurantoin <=16 Susceptibl e ug/mL colonies/ml escherichia coli (keyshawn) 10,000 to 50,000 Tobramycin <=1 Susceptible ug/mL colonies/ml escherichia coli (keyshawn) 10,000 to 50,000 Trimethoprim/Sulfamethoxazo <=1 /19 Susceptible ug/mL colonies/ml escherichia le coli (keyshawn) 10,000 to 50,000 Ampicillin/Sulbactam <=2 Suscep tible ug/mL colonies/ml escherichia coli (keyshawn) 10,000 to 50,000 Piperacillin/Tazo <=4 Susceptib le ug/mL colonies/ml escherichia coli (keyshawn) 10,000 to 50,000 Cefepime <=1 Susceptible ug/mL colonies/ml escherichia coli (keyshawn) Agatah SHEPHERDM, Podiatry/Foot and Ankle Surgery LAB - MICRO GENERAL ORDERABLES Performing Organization Address City/State/ZIP Code Phon e Number INFECTIOUS DISEASES [address] [place] [address] DIAGNOSTIC LABORATORY, [address] [address] [place] [facility] [address] [place], [place] [address] documented in this encounter Visit Diagnoses Diagnosis Post-operative state - Primary Other postprocedural status Burning with urination Dysuria documented in this encounter Additional Health Concerns Assessment Noted Time PHQ-9 Depression Total Score: 11 05/02/2016 7:09 AM CS T documented as of this encounter Care Teams Environmental Compliance Technician Relationship Specialty Start Date End Date Vanda Guerrero MD PCP - General Internal Medicine 04/08/15 01/08/19 [address] [facility] [place] [address] documented as of this encounter
--- OUTSIDE RECORDS SUMMARY | 2022-01-17 22:12 | XMS_ITS | Encounter Summary ---
:1965 Author Organization [place] Address [facility] [place] [address] Care Team Providers Name Role Phone Vanda Guerrero MD Primary Care Provider [phone] Reason for Visit Reason Comments Facial Pain 2-3 days, left side of face, swelling, pain with eating, tender to the touch. URI 1 week, fever, congestion, c ough, ear pain and dizziness. Encounter Details Date Type Department Care Team Description 07/13/2016 Office Visit [facility] Santos Alegria Acute si nusitis with symptoms > 10 days (Primary Dx); Urgent Care Pino Benítez PA-C Acute suppurative otitis media of both e ars without spontaneous rupture of tympanic membranes, recurrence not specified [id number] [place] [address] [address] [address] [address] [address] Social History Tobacco Use [...] How often do you attend episcopalian or judaism Patient refused 08/08/2019 services? Do [...] Sign Reading Time Taken Comments Blood Pressure 112/68 07/13/2016 11:09 AM HUMAN GEOGRAPHY INSTRUCTOR Pulse 94 07/13/2016 11:09 AM HUMAN GEOGRAPHY INSTRUCTOR Temperature 37.1 ??C (98.7 ??F) 07/13/2016 11:09 AM HUMAN GEOGRAPHY INSTRUCTOR Respiratory Rate - - Oxygen Saturation 98% 07/13/2016 11:09 AM HUMAN GEOGRAPHY INSTRUCTOR Inhaled Oxygen Concentration - - Weight 86.6 kg (191 lb) 07/13/2016 11:09 AM HUMAN GEOGRAPHY INSTRUCTOR Height 157.5 cm (5' 2) 07/13/2016 11:09 AM HUMAN GEOGRAPHY INSTRUCTOR Body Mass Index 34.93 07/13/2016 11:09 AM HUMAN GEOGRAPHY INSTRUCTOR documented in this encounter Patient Instructions Patient InstructionsSantos Hawley PA-C - 07/13/2016 12:03 PM CST Images from the original note were not included. Sinusitis (Antibiotic Treatment) The sinuses are air-filled spaces within the bones of the face. They connect to the inside of the nose.??Sinusitis??is an inflammation of the tissue lining the sinus cavity. Sinus inflammation can occur during a cold. It can also be due to allergies to pollens and other particles in the air. Sinusitiscan cause symptoms of sinus congestion and fullness. A sinus infection causes fever, headache and facial pain. There is often green or yellow drainage from the nose or into the back of the throat (post-nasal drip). You have been given antibiotics to treat this condition. Home care: ?? Take the full course of antibiotics as instructed. Do not stop taking them, even if you feel better. ?? Drink plenty of water, hot tea, and other liquids. This may help thin mucus. It also may promote sinus drainage. ?? Heat may help soothe painful areas of the face. Use a towel soaked in hot water. Or, picked edge sewing machine operator theshower and direct the hot spray onto your face. Using a vaporizer along with a menthol rub at night may also help.? An??expectorant??containing guaifenesin may help thin the mucus and promote drainage from the sinuses. ?? Iwfk-ywc-kvkgwqg??decongestants??may be used unless a similar medicine was prescribed. Nasal sprays work the fastest. Use one that contains phenylephrine or oxymetazoline. First blow the nose gently. Then use the spray. Do not use these medicines more often than directed on the label or symptoms may get worse. You may also use tablets containing pseudoephedrine. Avoid products that combine ingredients, because side effects may be increased. Read labels. You can also ask the pharmacist for help. (NOTE:??Persons with high blood pressure should not use decongestants. They can raise blood pressure.) ?? Vgvw-siw-ruryoby??antihistamines??may help if allergies contributed to your sinusitis. ? Do not use nasal rinses or irrigation during an acute sinus infection, unless told to by your health care provider. Rinsing may spread the infection to other sinuses. ?? Use acetaminophen or ibuprofen to control pain, unless another pain medicine was prescribed. (If you have chronic liver or kidney disease or ever had a stomach ulcer, talk with your doctor before using these medicines. Aspirin should never be used in anyone under 18 years of age who is ill with a fever. It may cause severe liver damage.) ?? Don't smoke. This can worsen symptoms. Follow-up care Follow up with your healthcare provider or our staff if you are not improving within the next week. When to seek medical advice Call your healthcare provider if any of these occur: ?? Facial pain or headache becoming more severe ?? Stiff neck ?? Unusual drowsiness or confusion ?? Swelling of the forehead or eyelids ?? Vision problems, including blurred or double vision ?? Fever of??100.4??F (38??C)??or higher, or as directed by your healthcare provider ?? Seizure ?? Breathing problems ?? Symptoms not resolving within 10 days ?? [id number] [employer]. [address] [place] [address]. All rights reserved. This information is not intended as a substitute for professional medical care. Always follow your healthcare professional's instructions. N GEOGRAPHY INSTRUCTOR documented in this encounter Progress Notes Santos Hawley PA-C - 07/13/2016 1:25 PM CST SUBJECTIVE: Megan Choi presents to clinic today for evaluation of nasal congestion, purulent rhinorrhea,post-nasal drainage, sinus pain/pressure, on/off bilateral ear pressure, and tooth pain x 3+ weeks duration. Positive mild cough that she related to post-nasal drip. No SOB or wheezing. Patient reports fever at onset of illness ~3 weeks ago. No fever for past 2 weeks. Patient denies any F (no fever for past 2 weeks)/C/N/V/D, rash, abdominal pain or any other acute illness sxs. Despite above acute illness sxs, patient still alert, active and taking in PO solids and fluids. Normal BM's and urination. OBJECTIVE: BP 112/68 mmHg Pulse 94 Temp(Src) 98.7 ??F (37.1 ??C) (Oral) Ht 5' 2 (1.575 m) Wt 191 lb (86.637 kg) BMI 34.93 kg/m2 SpO2 98% LMP 10/30/2011 General appearance: alert and no apparent distress Skin color is pink and without rash. HEENT: Conjunctiva not injected. Sclera clear. Left TM is intact, dull and erythematous RIGHT TM is intact, dull and erythematous. Nasal mucosa is red and swollen. Maxillary sinuses are tender bilaterally. Oropharyngeal exam is normal other than evidence of PND: no lesions, erythema, adenopathy or exudate. Neck is supple with no adenopathy CARDIAC:NORMAL - regular rate and rhythm without murmur. RESP: Normal - CTA without rales, rhonchi, or wheezing. ASSESSMENT/PLAN: (J01.90) Acute sinusitis with symptoms > 10 days (primary encounter diagnosis) Plan: doxycycline Monohydrate 100 MG CAPS, fluticasone (FLONASE) 50 MCG/ACT spray Follow-up with PCP if sxs change, worsen or fail to fully resolve with above tx. In addition to the above, sinusitis red flag signs and sxs are reviewed with pt both verbally and by way of printed educational material for home review. Pt verbalizes understanding of and agrees to the above plan. (H66.003) Acute suppurative otitis media of both ears without spontaneous rupture of tympanic membranes, recurrence not specified Plan: doxycycline Monohydrate 100 MG CAPS, fluticasone (FLONASE) 50 MCG/ACT spray Follow-up with PCP if sxs change, worsen or fail to fully resolve with above tx. N GEOGRAPHY INSTRUCTOR documented in this encounter Nursing Notes Gisele Patel - 07/13/2016 11:11 AM CST Chief Complaint Patient presents with ??? Facial Pain 2-3 days, left side of face, swelling, pain with eating, tender to the touch. ??? URI 1 week, fever, congestion, cough, ear pain and dizziness. Initial BP 112/68 mmHg Pulse 94 Temp(Src) 98.7 ??F (37.1 ??C) (Oral) Ht 5' 2 (1.575 m) Wt 191 lb (86.637 kg) BMI 34.93 kg/m2 SpO2 98% LMP 10/30/2011 Estimated body mass index is 34.93 kg/(m^2) as calculated from the following: Height as of this encounter: 5' 2 (1.575 m). Weight as of this encounter: 191 lb (86.637 kg). BP completed using cuff size: large Gisele Patel MA N GEOGRAPHY INSTRUCTOR documented in this encounter Plan of Treatment Not on filedocumented as of this encounter Visit Diagnoses Diagnosis Acute sinusitis with symptoms > 10 days - Primary Acute sinusitis, unspecified Acute suppurative otitis media of both e ars without spontaneous rupture of tympanic membranes, recurrence not specified documented in this encounter Additional Health Concerns Assessment Noted Time PHQ-9 Depression Total Score: 11 05/02/2016 7:09 AM CS T documented as of this encounter Care Teams Router Tender Relationship Specialty Start Date End Date Vanda Guerrero MD PCP - General Internal Medicine 04/08/15 01/08/[address] [facility] [address] [place], [place] [address] documented as of this encounter
--- OUTSIDE RECORDS SUMMARY | 2022-01-17 22:12 | XMS_ITS | Encounter Summary ---
:1965 Author Organization [facility] Address [address] [place] [address] Care Team Providers Name Role Phone Vanda Guerrero MD Primary Care Provider [phone] Reason for Visit Auth/Cert Specialty Diagnoses / Procedures Referred By Contact Refer red To Contact Surgery Diagnoses Peroneal Tendon tear Rh Periop Services Procedures REPAIR TENDON PERONEAL [address] [place], [place] [address] Fax: Referral ID Status Reason Start Date Expiration Date Visits Requ ested Visits Authorized [id number] 1 1 Encounter Details Date Type Department Care Team Description 06/08/2016 Surgery [facility] Agatha Null DPM, Le ft peroneal tendon [facility] Pod[facility]ry/Foot and repair and transfer [address] [facility] [place] [address] [place] [phone] [facility] [address] [place], [place] [address] (Wo rk) Surgery Details Date/Time Status Location OR Service Patient Case Class Case Tr auma Class Type Case? 06/08/16 10:00 Posted [facility] OR OR 10 Podiatry Same Day AM Surgery Panel 1 Procedure LRB Anes Op Region Wound Class Commen ts Left peroneal tendon Left Combined General Ankle I-Clean Left peroneal repair and transfer with Popliteal Block tendon repair and transfer Surgeon Surgeon Role Service Panel Agatha Null DPM, Podiatry/Foot and Ankle Surgery Primary Podiatry 1 Special Needs # stated documented in this encounter Social History Tobacco [...] How often do you attend episcopal or episcopal Patient refused 08/08/2019 services? Do [...] Sign Reading Time Taken Comments Blood Pressure 156/103 06/08/2016 11:20 AM OPERATIONS PROGRAM MANAGER Pulse - - Temperature 36.6 ??C (97.9 ??F) 06/08/2016 11:15 AM OPERATIONS PROGRAM MANAGER Respiratory Rate 20 06/08/2016 11:20 AM OPERATIONS PROGRAM MANAGER Oxygen Saturation 100% 06/08/2016 11:20 AM OPERATIONS PROGRAM MANAGER Inhaled Oxygen Concentration - - Weight 87.1 kg (192 lb 1.6 oz) 06/08/2016 8:52 AM OPERATIONS PROGRAM MANAGER Height 157.5 cm (5' 2) 06/08/2016 8:52 AM OPERATIONS PROGRAM MANAGER Body Mass Index 35.14 06/08/2016 8:52 AM OPERATIONS PROGRAM MANAGER documented in this encounter Discharge Instructions Discharge [...] take any ibuprofen products until 3:15 pm. ATIONS PROGRAM MANAGER documented in this encounter Medications at Time [...] use of insulin (H) JAY NOT PRESCRIBED, AJY Inhibitor not 0 each 0 6 10/11/2016 [...] or female climacteric states fluticasone (FLONASE) 50 [place] 1-2 sprays 3 Bottle 3 05/0306/12/2017 MCG/ACT [...] days available in the hospital surgical encounter. ATIONS PROGRAM MANAGER Source Note - Noreen Corbett MD - 06/01/2016 10:17 AM OPERATIONS PROGRAM MANAGER [address] [facility] [address] Dept: [phone] PRE-OP EVALUATION: Today's date: 06/01/2016 Megan Choi (: 1965) presents for pre-operative evaluation assessment as requested by Dr. Null. She requires evaluation and anesthesia risk assessment prior to undergoing surgery/procedure for treatment of left ankle . Proposed procedure: repair of tendon in left ankle Date of Surgery/ Procedure: 06/08/16 Time of Surgery/ Procedure: 10:10am Hospital/Surgical Facility: [facility] Primary Physician: Vanda Guerrero Type of Anesthesia [...] ??? Obesity 04/13/2008 ??? Family history of SD (myocardial infarction) 04/13/2008 At early age, father SD at age 40 Past Medical History Diagnosis [...] ??? fluticasone (FLONASE) 50 MCG/ACT nasal spray [place] 1-2 sprays into both nostrils daily 3 [...] cardiovascular risks for perioperative complications such as (SD, PE, VFib and 3?? AV Block): No [...] evaluation report is provided to requesting physician. [facility] Preop Guidelines ATIONS PROGRAM MANAGER documented in this encounter Nursing Notes Hortencia Sawyer, RN - 06/08/2016 12:26 PM CST Pharmacy [facility] called. Prescription question. Clarified with MD. Will receive the Enoxaparin 100mg/1mlwill give same dose just changing the dispensing container. V. O. Dr Karthik Null ATIONS PROGRAM MANAGER documented in this encounter Miscellaneous Notes Op Note - Agatha Null DPM, Podiatry/Foot and Ankle Surgery - 06/08/2016 11:38 AM CST DATE OF PROCEDURE: 06/08/2016 SURGEON: Agatha Null DPM PREOPERATIVE DIAGNOSES: 1. Left ankle pain. [...] pathology. MATERIALS: 3-0 FiberWire. INDICATIONS: Ms. Megan Choi is a 51-year-old female who presented to [...] in 1 week for dressing change. AGATHA NULL DPM MT: [id number] Name: MEGAN CHOI MRN: [id number] Account: [id number] : 1965 Procedure Date: 06/08/2016 Document: [id number] ATIONS PROGRAM MANAGER Brief Op Note - Agatha Null DPM, Podiatry/Foot and Ankle Surgery - 06/08/2016 11:19 AM CST Brief Operative Note Pre-operative diagnosis: Peroneal Tendon tear left foot Post-operative diagnosis same Procedure: Procedure(s): Left foot peroneal tendon repair/transfer - Wound Class: I-Clean Surgeon(s): Surgeon(s) and Role: * Agatha Null DPM, Pod - Primary Estimated blood loss: <10ml Specimens: ID Type Source Tests Collected by Time Destination A : Left foot tendon Tissue Foot, Left SURGICAL PATHOLOGY EXAM Agatha Null DPM, Pod 06/08/2016 10:40 AM Findings: See op note CST documented in this encounter Plan of Treatment Not on filedocumented as of this encounter Procedures Procedure Name Priority Date/Time Associated Diagnosis Comme nts GLUCOSE BY METER Routine 06/08/2016 11:52 AM Post-operative st ate Results for this OPERATIONS PROGRAM MANAGER procedure are i n the results section. SURGICAL PATHOLOGY Routine 06/08/2016 10:40 AM Re sults for this EXAM OPERATIONS PROGRAM MANAGER procedure are i n the results section. REPAIR, TENDON, 06/08/2016 9:59 AM Peroneal Tendon tea r PERONEAL OPERATIONS PROGRAM MANAGER Special Needs 5'2 / 191# stated POTASSIUM STAT 06/08/2016 9:20 AM OPERATIONS PROGRAM MANAGER Resul ts for this procedure are i n the results section . CREATININE STAT 06/08/2016 9:20 AM OPERATIONS PROGRAM MANAGER Resul ts for this procedure are i n the results section . GLUCOSE BY METER Routine 06/08/2016 8:58 AM OPERATIONS PROGRAM MANAGER R esults for this procedure are i n the results section . PATHOLOGY RESULT - HIM 06/08/2016 12:00 AM OPERATIONS PROGRAM MANAGER SCAN documented in this encounter Results (ABNORMAL) Glucose by meter (06/08/2016 11:52 AM OPERATIONS PROGRAM MANAGER) P athologist Signature Glucose 159 (H) 70 - 99 POINT OF CARE mg/dL TEST, GLUCOSE Specimen Anatomical Collection Method Collection Time Receive d Time (Source) Location / / Volume Laterality 06/08/2016 11:52 06/08/2016 AM OPERATIONS PROGRAM MANAGER 11:55 AM OPERATIONS PROGRAM MANAGER Agatha Null DPM, Podiatry/Foot and Ankle Surgery LAB - [facility] POCT Performing Organization Address City/State/ZIP Code Phon e Number FV POINT OF CARE TEST, GLUCOSE POINT OF CARE TEST, GLUCOSE Surgical pathology exam (06/08/2016 10:40 AM OPERATIONS PROGRAM MANAGER) Component Value Ref Test Analysis Performed At [facility] Range Method Time Signature Copath Report Patient Name: MEGAN CHOI MR#: [id number] Specimen #: [id number] Collected: 06/08/2016 Received: 06/08/2016 Reported: 06/09/2016 11:56 Ordering Phy(s): AGATHA NULL For improved result formatting, select 'View Enhanced [...] is no in flammation. CPT Codes: A: 69160-GK1, 93188-SLW TESTING LAB LOCATION: [address] ??[address] COLLECTION SITE: Client: [facility] Location: RHOR (R) Specimen (Source) Anatomical Collection Method Collection Time Re ceived Time Location / / Volume Laterality Tissue specimen STRUCTURE OF LEFT 06/08/2016 10:40 (specimen) FOOT / Unknown AM OPERATIONS PROGRAM MANAGER Comment: Left foot tendon for Gross exam ination Agatha J Chaka DPM, Podiatry/Foot and Ankle Surgery LAB - [facility] Performing Organization Address City/State/ZIP Code Phon e Number [place] Creatinine (06/08/2016 9:20 AM OPERATIONS PROGRAM MANAGER) athologist Signature Creatinine 0.74 0.52 - 1.04 [place] mg/dL [facility] GFR Estimate 82 >60 [place] mL/min/1.7m [address] Comment: Non GFR Calc GFR Estimate If Black >90 >60 mL/min/1.7m2 F [facility] GFR Calc HOSP ITAL Specimen Anatomical Collection Method Collection Time Receive d Time (Source) Location / / Volume Laterality Blood specimen 06/08/2016 9:20 AM 016 9:24 (specimen) OPERATIONS PROGRAM MANAGER AM OPERATIONS PROGRAM MANAGER Dusty Sanchez MD LAB - BLOOD ORDERABLES Performing Organization Address City/[facility]/ZIP Code Phon e Number M [facility] [address] [place], [place] [address] [facility] [address] [place] [address], [facility] [phone] Potassium (06/08/2016 9:20 AM OPERATIONS PROGRAM MANAGER) athologist [facility] Potassium 3.8 3.4 - 5.3 [facility] mmol/L [facility] Specimen Anatomical Collection Method Collection Time Receive d Time (Source) Location / / Volume Laterality Blood specimen 06/08/2016 9:20 AM 016 9:24 (specimen) OPERATIONS PROGRAM MANAGER AM OPERATIONS PROGRAM MANAGER Dusty Sanchez MD LAB - BLOOD ORDERABLES Performing Organization Address City/[facility]/ZIP [facility] Phon e Number M [facility] [address] [place], [place] [address] [facility] [address] [address], [facility] [phone] (ABNORMAL) Glucose by meter (06/08/2016 8:58 AM OPERATIONS PROGRAM MANAGER) athologist Signature Glucose 136 (H) 70 - 99 POINT OF CARE mg/dL TEST, GLUCOSE Specimen Anatomical Collection Method Collection Time Receive d Time (Source) Location / / Volume Laterality 06/08/2016 8:58 AM 6 9:00 OPERATIONS PROGRAM MANAGER AM OPERATIONS PROGRAM MANAGER Agatha Null DPM, Podiatry/Foot and Ankle Surgery LAB - [facility] POCT Performing Organization Address City/State/ZIP Code Phon e Number FV POINT OF CARE TEST, GLUCOSE POINT OF CARE TEST, GLUCOSE PATHOLOGY RESULT - HIM SCAN (06/08/2016 12:00 AM OPERATIONS PROGRAM MANAGER) Specimen (Source) Anatomical Location Collection Method / Collectio n Time Received Time / Laterality Volume 06/08/2016 Narrative This result has an attachment that is no t available. Provider Scan LAB - [facility] SPECIAL DIAG OR DERABLES documented in this encounter Visit Diagnoses Not on filedocumented in this encounter Administered Medications Inactive Administered Medications - up to 3 most recent administrations Medication Order MAR Action Action Date Dose Rate Site bupivacaine 0.5 % - Given 06/08/2016 11:01 10 mLs Operative EPINEPHrine 1:200,000 AM OPERATIONS PROGRAM MANAGER Sit e/Surgical Site injection PRN, Starting on Elda 06/08/16 at 1101, Intra-procedure oxyCODONE (ROXICODONE) IR tablet 5-10 mg Given 06/08/2016 12:23 PM OPERATIONS PROGRAM MANAGER 5 mg 5-10 mg, Oral, ONCE PRN, moderate to severe pain, Starting on [place]a 06/08/16 at 1107, For 1 dose, One time prior to discharge., Post-procedure documented in this encounter Active and Recently Administered Medications Times are shown in OPERATIONS PROGRAM MANAGER. Scheduled Medication Order 06/06/2016 06/07/2016 06/08/2016 ceFAZolin [...] injection (CANCELED) 1101 (Given - Provider: Agatha Null DPM, Podiatry/Foot and Ankle Surgery) PRN, Starting [...] documented as of this encounter Care Teams Claims Counsel Relationship Specialty Start Date End Date Vanda Guerrero MD PCP - General Internal Medicine 04/08/15 01/08/19 [address] [facility] [place] [address] documented as of this encounter
--- OUTSIDE RECORDS SUMMARY | 2022-01-17 22:12 | XMS_ITS | Encounter Summary ---
:1965 Author Organization [facility] Address [address] [place] [address] Care Team Providers Name Role Phone Vanda Guerrero MD Primary Care Provider [phone] Reason for Visit (Routine) - Closed Specialty Diagnoses / Procedures Referred By Contact Refer red To Contact Radiology / Radiology. Diagnoses Epic Order, sb pt. [place] [address] [place] [address] [place] [address] Phone: Fax: Referral ID Status Reason Start Date Expiration Date Visits Requ ested Visits Authorized [id number] Closed 05/05/2016 05/03/2017 1 1 Encounter Details Date Type Department Care Team Description 05/05/2016 Hospital Encounter [facility] Agatha Null B ilateral ankle [facility] DPM, joint pain [id number] [place] [address] [place] [address] [place] [address] [facility] [address] [place], [place] [id number] Social History Tobacco Use Types Packs/Day Years [...] How often do you attend baptism or catholic Patient refused 08/08/2019 services? Do [...] or female climacteric states fluticasone (FLONASE) 50 [place] 1-2 sprays 3 Bottle 3 05/0306/12/2017 [...] Comme nts MR ANKLE LEFT W/O Routine 05/05/2016 1:32 PM Bilateral ankle R esults for this CONTRAST PROJECT EXECUTIVE joint pain procedure are i n the results section. documented in this encounter Results MR Ankle Left w/o Contrast (05/05/2016 1:32 PM PROJECT EXECUTIVE) Anatomical Region Laterality Modality Left Ankle, SUBRAD MR MSK, UMP MR MSK Ma gnetic Resonance Specimen (Source) Anatomical Location Collection Method / Collectio n Time Received Time / Laterality Volume Impressions 05/05/2016 4:51 PM PROJECT EXECUTIVE IMPRESSION: ?? 1. 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 Clini trisha significance of this finding is uncertain and clinical correl ation for any pain or tenderness related to this region is rec ommended. 2. Longitudinal split type tear of the p eroneus brevis tendon. 3. Probable very early degenerative byrd ge at the navicular medial cuneiform joint. ROHAN PINK MD Narrative 05/05/2016 4:51 PM PROJECT EXECUTIVE MR ANKLE LEFT WITHOUT CONTRAST 05/05/2016 1:32 PM HISTORY: ??Left-sided foot and ankle valdo n for over 6 months. No specific injury. Evaluate for stress fra cture or tendon tear. TECHNIQUE: ??Sagittal and coronal T1, ST IR. ?? Axial proton density, T2. COMPARISON: None. FINDINGS: Osseous and Cartilaginous Structures: ?? There is a type II accessory navicular. Small amount of medial bony s purring is seen at the articulation between the accessory bone and remainder of the navicular but there is no significant edema on eit her side of the articulation to indicate motion. Clinical correlation for any pain related to this region is recommended. Minimal focus of subchondral bone marrow edema at the superior proximal medial cuneifor m bone is likely early degenerative change. No acute appearing bony abnormalities. Major articular cartilages appear normal. Posterior Tibial and Flexor Tendons: ??N o tear or significant tendinosis of the posterior tibial tendo n, flexor digitorum longus tendon, or flexor hallucis longus tendon . Peroneal Tendons: ??There is a full-thic kness longitudinal split tear of the peroneus brevis tendon beginning at the lateral malleolus and extending distally for about 3 cm (image 24 of series 10). The peroneus longus tendon appears normal. Achilles Tendon: ??No tear or significan t tendinosis. Extensor Tendons: ??No tear or significa nt tendinosis of the anterior tibial tendon, extensor hallucis longus tendon, or extensor digitorum longus tendon. Lateral Ligaments: ??The anterior talofi bular ligament is normal. The calcaneofibular, posterior talofibular, and anterior and posterior tibiofibular ligaments are unremarkable. Medial Deltoid Ligamentous Complex: Visu alized components are unremarkable. Plantar Fascia: ??Unremarkable, with no findings to suggest active plantar fasciitis. Additional Findings: ??No significant ?? joint effusions. No mass within the tarsal tunnel. ??The sinus tarsi is unremarkable. ?? Procedure Note Rohan Pink MD - 05/05/2016Fo rmatting of this note might be different from the original. MR ANKLE LEFT WITHOUT CONTRAST 6 1:32 PM HISTORY: Left-sided foot and ankle pain for over 6 months. No specific injury. Evaluate for stress fra cture or tendon tear. TECHNIQUE: Sagittal and coronal T1, STIR . Axial proton density, T2. COMPARISON: None. FINDINGS: Osseous and Cartilaginous Structures: Th ere is a type II accessory navicular. Small amount of medial bony s purring is seen at the articulation between the accessory bone and remainder of the navicular but there is no significant edema on eit her side of the articulation to indicate motion. Clinical correlation for any pain related to this region is recommended. Minimal focus of subchondral bone marrow edema at the superior proximal medial cuneifor m bone is likely early degenerative change. No acute appearing bony abnormalities. Major articular cartilages appear normal. Posterior Tibial and Flexor Tendons: No tear or significant tendinosis of the posterior tibial tendo n, flexor digitorum longus tendon, or flexor hallucis longus tendon . Peroneal Tendons: There is a full-thickn ess longitudinal split tear of the peroneus brevis tendon beginning at the lateral malleolus and extending distally for about 3 cm (image 24 of series 10). The peroneus longus tendon appears normal. Achilles Tendon: No tear or significant tendinosis. Extensor Tendons: No tear or significant tendinosis of the anterior tibial tendon, extensor hallucis longus tendon, or extensor digitorum longus tendon. Lateral Ligaments: The anterior talofibu lar ligament is normal. The calcaneofibular, posterior talofibular, and anterior and posterior tibiofibular ligaments are unremarkable. Medial Deltoid Ligamentous Complex: Visu alized components are unremarkable. Plantar Fascia: Unremarkable, with no fi ndings to suggest active plantar fasciitis. Additional Findings: No significant join t effusions. No mass within the tarsal tunnel. The sinus tarsi is un remarkable. IMPRESSION: 1. 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 Clini trisha significance of this finding is uncertain and clinical correl ation for any pain or tenderness related to this region is rec ommended. 2. Longitudinal split type tear of the p eroneus brevis tendon. 3. Probable very early degenerative byrd ge at the navicular medial cuneiform joint. ROHAN PINK MD Agatha Null DPM, Podiatry/Foot and Ankle Surgery IMG MRI ORDERABLES documented in this encounter Visit Diagnoses Diagnosis Bilateral ankle joint pain documented in this encounter Additional Health Concerns Assessment Noted Time PHQ-9 Depression Total Score: 11 05/02/2016 7:09 AM CS T documented as of this encounter Care Teams Barrel Finisher Relationship Specialty Start Date End Date Vanda Guerrero MD PCP - General Internal Medicine 04/08/15 01/08/19 [address] [place] [address] documented as of this encounter
--- OUTSIDE RECORDS SUMMARY | 2022-01-17 22:12 | XMS_ITS | Encounter Summary ---
:1965 Author Organization [place] Address [address] [place] [address] Care Team Providers Name Role Phone Vanda Guerrero MD Primary Care Provider [phone] Reason for Visit Reason Comments Consult follow-up regarding US done 05/05/16 - post menopausal bleeding x's 1 episode - 04/16-04/19 Encounter Details Date Type Department Care Team Description 05/11/2016 Office Visit [facility] Kodama, Christy Vagina l bleeding [place] Donnelly MD (Primary Dx) [address] [facility] [place] [phone] [place] [address] [place] [address] [place] [address] (Wo rk) Social History Tobacco Use Types [...] How often do you attend rastafarian or sabianist Patient refused 08/08/2019 services? Do [...] Sign Reading Time Taken Comments Blood Pressure 110/68 05/11/2016 1:58 PM JEWEL HOLE DRILLER Pulse 72 05/11/2016 1:58 PM JEWEL HOLE DRILLER Temperature - - Respiratory Rate - - Oxygen Saturation - - Inhaled Oxygen Concentration - - Weight 85.3 kg (188 lb) 05/11/2016 1:58 PM JEWEL HOLE DRILLER Height - - Body Mass Index 34.39 05/03/2016 11:19 AM JEWEL HOLE DRILLER documented in this encounter Progress Notes Kallie Blanco CMA - 05/11/2016 2:00 PM CST Chief Complaint Patient presents with ??? Consult follow-up regarding US done 05/05/16 - post menopausal bleeding x's 1 episode - 04/16-04/19 Initial BP 110/68 mmHg Pulse 72 Wt 188 lb (85.276 kg) LMP 10/30/2011 Estimated body mass indexis 34.38 kg/(m^2) as calculated from the following: Height as of 05/03/16: 5' 2 (1.575 m). Weight as of this encounter: 188 lb (85.276 kg). BP completed using cuff size: regular Nurse assisted visit. Kallie Blanco MA. L HOLE DRILLER Christy Ibarra MD - 05/11/2016 12:50 PM CST Subjective: Megan Choi, a 51 y/o female, presents for follow up of pelvic US. Patient reports light vaginal bleeding 04/16/16-04/19/16. [place] like a period, +PMS, breast tenderness,pelvic pressure. Reports pelvic pressure since February. Confirms minimal discharge, has now stopped. Denies bladder or bowel problems. Sexually active, endorses dyspareunia alleviated with estrace cream. 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 Patient notes persistent fatigue. Reports she is following up with specialists for her other health issues. States she is working on managing diabetes, intends to improve diet. PGYNH: Menarche age 10. Menopause age 49.Abnormal pap with a clear biopsy over 30 years ago. Past Medical History Diagnosis Date ??? Dvt femoral (deep venous thrombosis) (H) 04/17 post surgical, stopped coumadin 01/16 ??? Diabetes mellitus (H) ??? IFG (impaired fasting glucose) 10/03/2015 Past Surgical History Procedure Laterality Date ??? C spinal fusion,ant,ea adnl level 2004 L5, S1, Repeated in 2005 ??? C spinal fusion,ant,ea adnl level 2006 SI joints ??? C spinal fusion,ant,ea adnl level 2000 C5-C7 fused ??? section Family History Problem Relation Age of Onset ??? Cardiovascular Mother NC age 72 ??? Cardiovascular Father NC early 40s, subsequent bipass ??? DIABETES Mother Type II ??? Hypertension Mother ??? Lipids Mother ??? Arthritis Mother OA ??? Hypertension Father ??? DIABETES Father ??? Lipids Father ??? Lipids Sister ??? Lipids Sister ??? Lipids Brother ??? Hypertension Sister ??? Hypertension Sister ??? Hypertension Brother ??? DIABETES Sister ??? DIABETES Sister ??? DIABETES Brother ??? DIABETES Maternal Grandfather ??? DIABETES Paternal Grandmother ??? DIABETES Paternal Grandfather ??? DIABETES Maternal Grandmother ??? Hypertension Maternal Grandmother ??? Hypertension Maternal Grandfather ??? Hypertension Paternal Grandmother ??? Hypertension Paternal Grandfather ??? Cardiovascular Paternal Grandmother ??? Cardiovascular Paternal Grandfather ??? Lipids Maternal Grandmother ??? Lipids Maternal Grandfather ??? Lipids Paternal Grandmother ??? Lipids Paternal Grandfather ??? KIDNEY DISEASE Mother 70 ??? KIDNEY DISEASE Brother 55 Social History Substance Use Topics ??? Smoking status: Never Smoker ??? Smokeless tobacco: Never Used ??? Alcohol Use: Yes Comment: Rare ROS: Constitutional, HEENT, cardiovascular, pulmonary, gi and gu systems are negative, except as otherwise noted. This document serves as a record of the services and decisions personally performed and made by Christy Ibarra MD. It was created on her behalf by Gisele Newberry, a trained medical field representative. The creation of this document is based the provider's statements to the medical field representative. Gisele Newberry May 11, 2016 12:50 PM Objective: Physical exam: GENERAL APPEARANCE: healthy, alert and no distress Assessment/Plan: (N93.9) Vaginal bleeding (primary encounter diagnosis) Comment: US results reviewed--small fibroid 3.2 cm, endometrial stripe , 2 mm, reassuring. Discussedpossible etiologies of postmenopausal vaginal. Endometrial cancer risk factors discussed. Discussed options for further evaluation, including endometrial biopsy today, vs expectant management. Plan: Patient desires to wait on biopsy today, which may be acceptable given endometrial stripe, lowrisk factors. Will follow up for biopsy if another incident of bleeding occurs. Reviewed healthy eating for diabetes management. Approximately >15 minutes were spent with the patient, of which > 50% was spent in face to face counselling. The information in this document, created by the medical field representative for me, accurately reflects the services I personally performed and the decisions made by me. I have reviewed and approved this document for accuracy prior to leaving the patient care area. 05/11/2016 12:51 PM Christy Ibarra M.D. L HOLE DRILLER documented in this encounter Plan of Treatment Not on filedocumented as of this encounter Visit Diagnoses Diagnosis Vaginal bleeding - Primary Other specified noninflammatory disorder of vagina documented in this encounter Additional Health Concerns Assessment Noted Time PHQ-9 Depression Total Score: 11 05/02/2016 7:09 AM CS T documented as of this encounter Care Teams Brushing Machine Operator Relationship Specialty Start Date End Date Vanda Guerrero MD PCP - General Internal Medicine 04/08/15 01/08/19 [address] [facility] [place] [address] documented as of this encounter
--- OUTSIDE RECORDS SUMMARY | 2022-01-17 22:12 | XMS_ITS | Encounter Summary ---
:1965 Author Organization [facility] Address [address] [place] [address] Care Team Providers Name Role Phone Vanda Guerrero MD Primary Care Provider Reason for Visit [facility] Physical Therapy (Routine) - Closed Specialty Diagnoses / Procedures Referred By Contact Refer red To Contact Physical Therapy Diagnoses new pt needs paperwork post peroneal tendon repair surgery left foot. / Agatha Null DPM, Pod @ [facility] Agatha Null DPM, Candy Disla, PT Procedures EXTREM[facility] INITIAL Podiatry/Foot and [facility] [address] [place] [address] [address] [place] [address] [place] [address] Referral ID Status Reason Start Date Expiration Date Visits V isits Requested Authorized LINUS/BC/LFOOT Closed 07/03/2016 06/10/2017 20 18 Encounter Details Date Type Department Care Team Description [facility]/14[facility]2016 [facility], left (Primary Dx); Rehabilitation PT Aftercare following surgery of the [facility] loskeletal system Services [facility] [address] [facility] [address] [place] [address] [place], [place] [address] Social History Tobacco Use Types Packs/Day Years [...] often do you attend latter day or sabianism Patient refused 08/08/2019 services? Do [...] Name Priority Date/Time Associated Diagnosis Comme nts [facility] NEUROMUSCULAR Routine 07/14/2016 10:49 AM Ankle pain , left RE-EDUCATION DIRECTOR OF SECURITY Aftercare following surgery of the musculoskeletal system [facility] THERAPEUTIC Routine 07/14/2016 10:49 AM Ankle pain, left EXERCISES DIRECTOR OF SECURITY Aftercare following surgery of the musculoskeletal system documented in this encounter Visit Diagnoses Diagnosis Ankle pain, left - Primary Pain in joint, ankle and foot Aftercare following surgery of the muscu loskeletal system Aftercare following surgery of the [facility] loskeletal system, N[facility] documented in this encounter Additional Health Concerns Assessment Noted Time PHQ-9 Depression Total Score: 11 05/02/2016 7:09 AM CS T documented as of this encounter Care Teams Outreach Assistant Relationship Specialty Start Date End Date Vanda Guerrero MD PCP - General Internal Medicine 04/08/15 01/08/19 [address] [facility] [place] [id number] documented as of this encounter
--- OUTSIDE RECORDS SUMMARY | 2022-01-17 22:13 | XMS_ITS | Encounter Summary ---
:1965 Author Organization [facility] Address [address] [place] [address] Care Team Providers Name Role Phone Vanda Guerrero MD Primary Care Provider [phone] Reason for Visit Reason Onset Date Comments Refill Request 02/20/2016 loratadine-pseudoePH EDrine (CLARITIN-D 24-HOUR) 10-240 MG per tablet Encounter Details Date Type Department Care Team Description 02/20/2016 Refill [facility] [place] Good Refill Request [address] J, [place] ATTENDANT MEDIA RELATIONS MANAGER (loratadine-pseudoePHEDr [place] [phone] [address] [facility] (CLARITIN-D 24-HOUR) [phone] 10-240 MG per tablet) [place] [id number] (Wo rk) Social History Tobacco Use [...] How often do you attend christian or hinduism Patient refused 08/08/2019 services? Do [...] Notes Telephone Encounter - Lori Weber - 02/23/2016 11:08 AM CDT Faxed RX to patients pharmacy. Lori Weber MA Telephone Encounter - Vanda Guerrero MD - 02/23/2016 10:01 AM CDT Script printed, signed, and in station out basket. Telephone Encounter - Raven Emmanuel RN - 02/23/2016 9:30 AM CDT Routing refill request to provider for review/approval because: Drug not on the [facility] or [facility] refill protocol or controlled substance Raven Emmanuel RN Telephone Encounter - Sukh Beltran - 02/20/2016 1:00 PM CDT loratadine-pseudoePHEDrine (CLARITIN-D 24-HOUR) 10-240 MG per tablet Last Written Prescription Date: 12-22-2014 Last Fill Quantity: 90, # refills: prn Last Office Visit with [facility] or Health prescribing provider: 12-22-2015 Next 5 appointments (look out 90 days) Mar 23, 2016 10:20 AM Office Visit with Vanda Guerrero MD [facility] [place] [facility] [place] [address] [place] [address] [place] [address] documented in this encounter Plan of Treatment Not on filedocumented as of this encounter Visit Diagnoses Diagnosis Seasonal allergic rhinitis - Primary Allergic rhinitis, cause unspecified documented in this encounter Additional Health Concerns Assessment Noted Time PHQ-9 Depression Total Score: 12/23/2015 7:15 AM CD T documented as of this encounter Care Teams Guide Domestic Tour Relationship Specialty Start Date End Date Vanda Guerrero MD PCP - General Internal Medicine 04/08/15 01/08/[address] [place] [address] [place] [id number] documented as of this encounter
--- OUTSIDE RECORDS SUMMARY | 2022-01-17 22:13 | XMS_ITS | Encounter Summary ---
:1965 Author Organization [place] [facility] Address [address] [place] [address] Care Team Providers Name Role Phone Vanda Guerrero MD Primary Care Provider [phone] Reason for Visit Reason Onset Date Comments Patient Request 10/27/2015 Should patient get l abs re-checked? Encounter Details Date Type Department Care Team Description 10/27/2015 Telephone [facility] Vanda Lal [facility] [place] (Should patient get [place] [phone] [address] labs re-checked?) [phone] [facility] [place] [address] (Wo rk) Social History [...] How often do you attend taoist or confucianist Patient refused 08/08/2019 services? Do you belong to any clubs or organizations such as No 08/08/2019 taoist groups, unions, fraternal or athletic groups, or [...] Notes Telephone Encounter - Lori Weber - 10/27/2015 4:12 PM CDT Spoke to patient and informed her, verbalized understanding. Lori Weber MA Telephone Encounter - Vanda Guerrero MD - 10/27/2015 4:10 PM CDT No need to repeat labs before appointment - would be preferable to have these done in early to mid November. Telephone Encounter - Lori Weber - 10/27/2015 4:08 PM CDT Routing to provider for review. Lori Weber MA Telephone Encounter - Ashli Vega - 10/27/2015 10:05 AM CDT Megan stated Dr. Guerrero wanted her to re-do some of her lab work from the last time she was in. Patient has an appointment with Dr. Guerrero on 11/01/15 and is wondering if she should complete the lab workbefore then? Please call patient to let her know. OK to leave a detailed message. Ashli Vega Patient Rep documented in this encounter Plan of Treatment Not on filedocumented as of this encounter Visit Diagnoses Not on filedocumented in this encounter Additional Health Concerns Assessment Noted Time PHQ-9 Depression Total Score: 13 07/09/2015 7:49 AM CS T documented as of this encounter Care Teams Patient Advocate Relationship Specialty Start Date End Date Vanda Guerrero MD PCP - General Internal Medicine 04/08/15 01/08/[address] [facility] [place] [address] documented as of this encounter
--- OUTSIDE RECORDS SUMMARY | 2022-01-17 22:13 | XMS_ITS | Encounter Summary ---
:1965 Author Organization [place] Address [address] [place] [address] Care Team Providers Name Role Phone Vanda Guerrero MD Primary Care Provider [phone] Reason for Visit (Routine) - Closed Specialty Diagnoses / Procedures Referred By Contact Refer red To Contact Radiology / Radiology. Diagnoses [facility] Procedures [place] DIAGNOSTIC DIGITAL BILAT [address], [address] [place] [address] Phone: Fax: Referral ID Status Reason Start Date Expiration Date Visits Requ ested Visits Authorized [id number] Closed 09/29/2015 09/28/2016 1 1 Encounter Details Date Type Department Care Team Description 09/30/2015 Hospital Encounter [facility] Vanda Guerrero reast pain, left [facility] MD [place] [address] [place] [address] [address], [address] [place] [address] [place], [place] [phone] [address] (Work) [phone] Social History Tobacco Use Types Packs/Day Years [...] How often do you attend anabaptism or yarsani Patient refused 08/08/2019 services? Do you belong to any clubs or organizations such as No 08/08/2019 anabaptism groups, [employer], [employer] or athletic groups, or school groups? How [...] HbA1c goal < 7% (H) blood glucose (ONE TOUCH Use to test [...] directed. diabetes, HbA1c goal < 7% (H) DULoxetine (CYMBALTA) 30 Take 1 capsule (30 180 capsule 0 11/09/2015 MG capsuleIndications: mg) by mouth 2 Fibromyalgia times daily fluticasone (FLONASE) 50 [place] 1-2 sprays 3 Package 3 10/0605/03/2016 MCG/ACT nasal into both nostrils sprayIndications: OME daily (otitis media with effusion), left gabapentin (NEURONTIN) Take 1 tablet (300 90 capsule 2 09/2811/01/2015 300 MG mg) every night for capsuleIndications: 1-3 days, then 1 History of fusion of tablet twice daily cervical spine, History for 1-3 days, then of lumbar fusion, 1 tablet three Left-sided low back pain times daily with left-sided sciatica loratadine-pseudoePHEDri Take 1 tablet by 90 tablet 0 12/2202/20/2016 ne (CLARITIN-D 24-HOUR) mouth daily 10-240 MG per tabletIndications: Seasonal allergic rhinitis metFORMIN (GLUCOPHAGE) Take 1 tablet (500 180 tablet 0 09/0912/06/2015 500 MG mg) by mouth 2 tabletIndications: Type times daily (with 2 diabetes mellitus meals) without complication (H) multivitamin, Take 1 tablet by 0 10/13 therapeutic with mouth daily minerals (MULTI-VITAMIN) TABS omeprazole (PRILOSEC) 20 Take 1 capsule (20 90 capsule 0 12/23/2015 MG capsuleIndications: mg) by mouth daily GERD (gastroesophageal reflux disease) simvastatin (ZOCOR) 20 Take 1 tablet (20 90 tablet 1 201411/05/2015 MG tabletIndications: mg) by mouth At Hyperlipidemia LDL goal Bedtime <100 tiZANidine (ZANAFLEX) 4 Take 1-2 tablets 90 tablet 5 201512/31/2015 MG tabletIndications: (4-8 mg) by mouth 2 Cervicalgia, History of times daily as fusion of cervical needed for muscle spine, History of lumbar spasms fusion topiramate (TOPAMAX) 50 Take 3 tablets (150 270 tablet 0 12/23/2015 MG tabletIndications: mg) by mouth daily Migraine headache documented as of this encounter Plan of Treatment Not on filedocumented as of this encounter Procedures Procedure Name Priority Date/Time Associated Comments Diagnosis MA DIAGNOSTIC Routine 09/30/2015 2:11 PM Breast pain, left Res ults for this BILATERAL W/ EVELINE CDT procedure are in the results section. documented in this encounter Results MA Diagnostic Bilateral w/Eveline (09/30/2015 2:11 PM CDT) Anatomical Region Laterality Modality Breast Bilateral Mammography Specimen (Source) Anatomical Location Collection Method / Collectio n Time Received Time / Laterality Volume Impressions 09/30/2015 2:32 PM CDT IMPRESSION: BI-RADS CATEGORY: 1 - ??NEGATIVE RECOMMENDED FOLLOW-UP: Annual Mammograph y BRIGIDO MACK MD Narrative 09/30/2015 2:32 PM CDT DIAGNOSTIC MAMMOGRAM BILATERAL DIGITAL w/CAD w/TOMOSYNTHESIS ULTRASOUND BILATERAL ??BREAST ??09/30/15 HISTORY: Tender lumps in the breasts donna aterally and in the left axilla. COMPARISON: ??Prior mammograms through 2 008. BREAST DENSITY: Scattered fibroglandular densities FINDINGS: ??Bilateral mammogram is withi n normal limits. No mammographic or sonographic abnormalitie s are identified in the region of pain and lump in the right breast at 10:00-11:00, in the left breast at 2:00 or in the left axilla. In cidentally noted is a morphologically normal 1.4 cm lymph node in the left axilla. Any further evaluation should be based on clinical findings and clinical suspicion. Vanda Guerrero MD IMG MAMMOGRAPHY ORDERABLES documented in this encounter Visit Diagnoses Diagnosis Breast pain, left Mastodynia documented in this encounter Additional Health Concerns Assessment Noted Time PHQ-9 Depression Total Score: 13 07/09/2015 7:49 AM CS T documented as of this encounter Care Teams Hospital Admissions Clerk Relationship Specialty Start Date End Date Vanda Guerrero MD PCP - General Internal Medicine 04/08/15 01/08/19 [address] [facility] [place] [address] documented as of this encounter
--- OUTSIDE RECORDS SUMMARY | 2022-01-17 22:13 | XMS_ITS | Encounter Summary ---
:1965 Author Organization [place] Address [address] [place] [address] Care Team Providers Name Role Phone Vanda Guerrero MD Primary Care Provider [phone] Reason for Visit Reason Onset Date Comments Panel Management 03/09/2016 Encounter Details Date Type Department Care Team Description 03/09/2016 Telephone [facility] Vanda Lal, Panel Management [address] [facility] [place] [phone] [facility] [phone] [facility] [place] [address] (Wo rk) Social [...] How often do you attend episcopal or confucianism Patient refused 08/08/2019 services? Do you belong to any clubs or organizations such as Sarahi 08/08/2019 episcopal groups, unions, fraternal or athletic [...] Notes Telephone Encounter - Lori Weber - 03/09/2016 3:57 PM CDT Type of outreach: None needed, patient due for DM visit in march - already scheduled Health Maintenance Due Topic Date Due ??? HEPATITIS C SCREENING 1981 ??? INFLUENZA VACCINE (SYSTEM ASSIGNED) 02/10/2016 ??? A1C Q6 MO( NO INBASKET) 03/31/2016 Patient had labs due, has scheduled appt for DM f/u in March as requested. Lori Weber MA documented in this encounter Plan of Treatment Not on filedocumented as of this encounter Visit Diagnoses Not on filedocumented in this encounter Additional Health Concerns Assessment Noted Time PHQ-9 Depression Total Score: 10 12/23/2015 7:15 AM CD T documented as of this encounter Care Teams Coning Machine Operator Relationship Specialty Start Date End Date Vanda Guerrero MD PCP - General Internal Medicine 04/08/15 01/08/[address] [facility] [address] [place], [place] [address] documented as of this encounter
--- OUTSIDE RECORDS SUMMARY | 2022-01-17 22:13 | XMS_ITS | Encounter Summary ---
:1965 Author Organization [place] Address [address] [place] [address] Care Team Providers Name Role Phone Vanda Guerrero MD Primary Care Provider [phone] Reason for Visit Reason Onset Date Comments Refill Request 03/07/2016 METFORMIN 500MG Encounter Details Date Type Department Care Team Description 03/07/2016 Refill [facility] Vanda Lal, Refill Request [address] [place] (METFORMIN 500MG) [place] [phone] [address] [facility] [phone] [facility] [place] [address] (Wo rk) Social [...] How often do you attend adventism or protestant Patient refused 08/08/2019 services? Do [...] this encounter Miscellaneous Notes Telephone Encounter - MaraMarisa owusu - 03/07/2016 12:26 PM CDT METFORMIN 500MG Last Written Prescription Date: 12/08/2015 Last Fill Quantity: 180, # refills: 0 Last Office Visit with [facility], [facility] or Health prescribing provider: 12/22/2015 Next 5 appointments (look out 90 days) Mar 23, 2016 10:20 AM Office Visit with Vanda Guerrero MD [facility] [place] [facility] [address] [place] [address] BP Readings from Last 3 Encounters: 12/22/15 110/76 11/01/15 114/66 09/29/15 114/68 MICROL 10 09/30/2015 MICROALBUMIN 5.67 09/30/2015 CREATININE Date Value Ref Range Status 09/30/2015 0.67 0.52 - 1.04 mg/dL Final ] GFR ESTIMATE Date Value Ref Range Status 09/30/2015 >90 Non GFR Calc >60 mL/min/1.7m2 Final 10/06/2014 79 >60 mL/min/1.7m2 Final Comment: Non GFR Calc 10/27/2013 >90 >60 mL/min/1.7m2 Final GFR ESTIMATE IF BLACK Date Value Ref Range Status 09/30/2015 >90 GFR Calc >60 mL/min/1.7m2 Final 10/06/2014 >90 GFR Calc >60 mL/min/1.7m2 Final 10/27/2013 >90 >60 mL/min/1.7m2 Final CHOL 152 12/03/2015 HDL 51 12/03/2015 LDL 79 12/03/2015 TRIG 109 12/03/2015 CHOLHDLRATIO 2.5 08/10/2014 AST 19 09/30/2015 ALT 47 09/30/2015 A1C 6.2 09/30/2015 A1C 6.0 04/08/2015 A1C 5.8 10/06/2014 A1C 5.9 03/25/2014 A1C 6.0 10/27/2013 POTASSIUM Date Value Ref Range Status 09/30/2015 4.0 3.4 - 5.3 mmol/L Final documented in this encounter Plan of Treatment Not on filedocumented as of this encounter Visit Diagnoses Diagnosis Type 2 diabetes mellitus without complic ation - Primary documented in this encounter Additional Health Concerns Assessment Noted Time PHQ-9 Depression Total Score: 10 12/23/2015 7:15 AM CD T documented as of this encounter Care Teams Packer And Carry Out Relationship Specialty Start Date End Date Vanda Guerrero MD PCP - General Internal Medicine 04/08/15 01/08/19 [address] [facility] [place] [address] documented as of this encounter
--- OUTSIDE RECORDS SUMMARY | 2022-01-17 22:13 | XMS_ITS | Encounter Summary ---
:1965 Author Organization [facility] Address [address] [place] [address] Care Team Providers Name Role Phone Vanda Guerrero MD Primary Care Provider [phone] Reason for Visit Reason Onset Date Comments Refill Request 12/23/2015 TOPIRAMATE 50MG Refill Request 12/23/2015 OMEPRAZOLE 20MG Encounter Details Date Type Department Care Team Description 12/23/2015 Refill [facility] Vanda Lal, Refill Request 1440 Priscilla Bass MD (TOPIRAMATE 50MG); [place] [phone] [facility]8 [facility] Refill Request [phone] NASIR ANDRE (OMEPRAZOLE 20MG) [place] [address] (Wo rk) Social History [...] How often do you attend anabaptism or taoism Patient refused 08/08/2019 services? Do [...] this encounter Miscellaneous Notes Telephone Encounter - Raven Emmanuel RN - 12/23/2015 2:20 PM CDT Patient seen 12/22/15 Please add refills. Thank you Raven Emmanuel RN Telephone Encounter - Marisa Matthew - 12/23/2015 9:05 AM CDT TOPIRAMATE 50MG Last Written Prescription Date: 10/06/2014 Last Fill Quantity: 270, # refills: PRN Last Office Visit with [facility], [facility] or [facility] prescribing provider: 12/22/2015 BP Readings from Last 3 Encounters: 12/22/15 110/76 11/01/15 114/66 09/29/15 114/68 CREATININE Date Value Ref Range Status 09/30/2015 0.67 0.52 - 1.04 mg/dL Final OMEPRAZOLE 20MG Last Written Prescription Date: 10/06/2014 Last Fill Quantity: 90, # refills: PRN Last Office Visit with [facility], [facility] or [facility] [employer] prescribing provider: 12/22/2015 documented in this encounter Plan of Treatment Not on filedocumented as of this encounter Visit Diagnoses Diagnosis Gastroesophageal reflux disease without esophagitis - Primary Esophageal reflux Fibromyalgia Mylagia and myositis, unspecified Non morbid obesity, unspecified obesity type documented in this encounter Additional Health Concerns Assessment Noted Time PHQ-9 Depression Total Score: 10 12/23/2015 7:15 AM CD T documented as of this encounter Care Teams Imaging Clerk Relationship Specialty Start Date End Date Vanda Guerrero MD PCP - General Internal Medicine 04/08/15 01/08/19 4274 [facility] [place] [address] documented as of this encounter
--- OUTSIDE RECORDS SUMMARY | 2022-01-17 22:13 | XMS_ITS | Encounter Summary ---
:1965 Author Organization [facility] Address [address] [place] [address] Care Team Providers Name Role Phone Vanda Guerrero MD Primary Care Provider [phone] Encounter Details Date Type Department Care Team Description 10/03/2015 Orders Only [facility] Vanda Guerrero Abnormal finding on Pino Toribio MD thyroid function test [address] (Primary Dx) [place] [address] [facility] [phone] [place] [address] (Wo rk) Social History [...] How often do you attend temple or baptism Patient refused 08/08/2019 services? Do you belong to any clubs or organizations such as 08/08/2019 temple groups, unions, fraternal or athletic [...] on filedocumented as of this encounter Results Thyroid stimulating immunoglobulin (12/03/2015 8:50 AM CDT) [facility] Method Time Signature Thyroid Stim <1.0 LA JOLLA Immunog Reference range: <=1.3 [facility] Unit: TSI index PINO (Note) Test Performed by: [address] [address] Mail Service Coordinator: Huseyin Dash II, M.D., Ph.D. Specimen Anatomical Collection Method Collection Time Receive d Time (Source) Location / / Volume Laterality Blood specimen 12/03/2015 8:50 AM 016 8:55 (specimen) CDT AM CDT Vanda Guerrero MD LAB - BLOOD ORDERABLES Performing Organization Address City/State/ZIP Code Phon e Number [facility] PINO [address] [facility] [place] [address] documented in this encounter Visit Diagnoses Diagnosis Abnormal finding on thyroid function shirley t - Primary Nonspecific abnormal results of thyroid function study documented in this encounter Additional Health Concerns Assessment Noted Time PHQ-9 Depression Total Score: 13 07/09/2015 7:49 AM CS T documented as of this encounter Care Teams Career Services Representative Relationship Specialty Start Date End Date Vanad Guerrero MD PCP - General Internal Medicine 04/08/15 01/08/19 [address] [facility] [place] [address] documented as of this encounter
--- OUTSIDE RECORDS SUMMARY | 2022-01-17 22:13 | XMS_ITS | Encounter Summary ---
:1965 Author Organization [facility] Address [address] [place] [address] Care Team Providers Name Role Phone Vanda Guerrero MD Primary Care Provider [phone] Reason for Visit (Routine) - Closed Specialty Diagnoses / Procedures Referred By Contact Refer red To Contact Radiology / Diagnoses prev ridges Rh Ultrasound Breast Radiology. Procedures US BREAST LT CMPL [facility] [address], [address] [place] [address] Phone: Referral ID Status Reason Start Date Expiration Date Visits Requ ested Visits Authorized [id number] Closed 09/30/2015 09/29/2016 1 1 Encounter Details Date Type Department Care Team Description 09/30/2015 Hospital Encounter [facility] Vanda Guerrero reast pain, left [place] Breast MD Cat[place] [address] [place] [address] [place], [place] [phone] [address] (Work) [phone] Social History Tobacco Use Types Packs/Day Years [...] 08/08/2019 relatives? How often do you attend mormon or roman catholic Patient refused 08/08/2019 services? Do you belong to any clubs or organizations such as No 08/08/2019 mormon groups, [employer], [employer] or athletic groups, or school groups? How [...] 2 Fibromyalgia times daily fluticasone (FLONASE) 50 [place] 1-2 sprays 3 Package 3 10/0605/03/2016 MCG/ACT [...] Priority Date/Time Associated Diagnosis Comme nts US BREAST BILATERAL Routine 09/30/2015 2:30 PM Breast pain, le ft Results for this LIMITED 1-3 CDT procedure are i n QUADRANTS the results section. documented in this encounter Results US Breast Bilateral Limited 1-3 Quadrants (09/30/2015 2:30 PM CDT) Anatomical Region Laterality Modality Breast Bilateral Ultrasound Specimen (Source) Anatomical Location Collection Method [...] and clinical suspicion. Vanda Guerrero MD IMG US ORDERABLES documented in this encounter Visit Diagnoses Diagnosis Breast pain, left Mastodynia documented in this encounter Additional Health Concerns Assessment Noted Time PHQ-9 Depression Total Score: 13 07/09/2015 7:49 AM CS T documented as of this encounter Care Teams Brass Cutter Relationship Specialty Start Date End Date Vanda Guerrero MD PCP - General Internal Medicine 04/08/15 01/08/19 [address] [facility] [place] [address] documented as of this encounter
--- OUTSIDE RECORDS SUMMARY | 2022-01-17 22:13 | XMS_ITS | Encounter Summary ---
:1965 Author Organization [facility] Address [address] [place] [address] Care Team Providers Name Role Phone Vanda Guerrero MD Primary Care Provider [phone] Reason for Visit Reason Onset Date Comments Refill Request 12/31/2015 tiZANidine (ZANAFLEX ) 4 MG tablet Encounter Details Date Type Department Care Team Description 12/31/2015 Refill [facility] Vanda Lal, Refill Request 1440 Priscilla Bass MD (tiZANidine (ZANAFLEX) [place] [phone] [place] [address] 4 MG tablet) [phone] [facility] [place] [id number] (Wo rk) Social History Tobacco Use Types [...] 08/08/2019 relatives? How often do you attend cheondoism or voodoo Patient refused 08/08/2019 services? Do you belong to any clubs or organizations such as No 08/08/2019 cheondoism groups, unions, fraternal or athletic groups, or [...] this encounter Miscellaneous Notes Telephone Encounter - Rosangela Mcleod - 12/31/2015 10:15 AM CDT Patient is out of medication. tiZANidine (ZANAFLEX) 4 MG tablet Last Written Prescription Date: 08/22/2015 Last Fill Quantity: 90, # refills: 5 Last Office Visit with [facility], [facility] or [facility] prescribing provider: 12/22/2015 Future Office visit: Next 5 appointments (look out 90 days) Mar 23, 2016 10:20 AM Office Visit with Vanda Guerrero MD [facility] ([facility]) [address] [place] [phone] Routing refill request to provider for review/approval [...] documented as of this encounter Care Teams Specifications Checker Relationship Specialty Start Date End Date Vanda Guerrero MD PCP - General Internal Medicine 04/08/15 01/08/19 [address] [facility] [place] [address] documented as of this encounter
--- OUTSIDE RECORDS SUMMARY | 2022-01-17 22:13 | XMS_ITS | Encounter Summary ---
:1965 Author Organization [facility] Address [address] [place] [address] Care Team Providers Name Role Phone Vanda Guerrero MD Primary Care Provider [phone] Reason for Visit Reason Comments Diabetes Lipids Recheck Medication Encounter Details Date Type Department Care Team Description 12/22/2015 Office Visit [facility] Vanda Guerrero Type 2 d iabetes mellitus without complication (H) (Primary Dx); Pino Toribio MD Recurrent major depressive disorder, rem ission status unspecified (H); [address] [facility] Hyperlipidemia LDL goal <100 ; [place] [address] [facility] Fibromyalgia; [phone] [place] [address] Symptomatic menopausal or female climact rosanna states; [phone] Anxiety; (Work) History of lumbar fusion; Colon can cer screening; Screening for d iabetic peripheral neuropathy Social History Tobacco Use Types Packs/Day Years [...] How often do you attend christianity or taoism Patient refused 08/08/2019 services? Do [...] Sign Reading Time Taken Comments Blood Pressure 110/76 12/22/2015 8:55 AM CDT Pulse 80 12/22/2015 8:55 AM CDT Temperature 36.2 ??C (97.2 ??F) 12/22/2015 8:55 AM CDT Respiratory Rate - - Oxygen Saturation - - Inhaled Oxygen Concentration - - Weight 83.5 kg (184 lb) 12/22/2015 8:55 AM CDT Height 158.8 cm (5' 2.5) 12/22/2015 8:55 AM CDT Body Mass Index 33.12 12/22/2015 8:55 AM CDT documented in this encounter Patient Instructions Patient InstructionsVanda Guerrero MD - 12/22/2015 9:31 AM CDT electric power superintendent your FIT test for colon cancer at the lab Keep up your exercise - look into a [employer] membership - water walking would be great for you Increase your gabapentin to 2 caps three times daily Let me know when you are ready to having a MRI and spine evaluation Come back to see me in 3 months - will repeat your A1C at that time Continue your current medications for now documented in this encounter Progress Notes Vanda Guerrero MD - 12/22/2015 9:03 AM CDT SUBJECTIVE: Megan Choi is a 50 year old female who presents to clinic today for the following health issues: Diabetes Follow-up ?? Patient is checking blood sugars: not very often, average of 100 ?? Diabetic concerns: low blood sugar several less than 70 in the past few weeks ?? Symptoms of hypoglycemia (low blood sugar): sides of feet becoming very sore ?? Paresthesias (numbness or burning in feet) or sores: Yes , if standing for more than 15 minutes become numb ?? Date of last diabetic eye exam: patient due, informed and is making appt Hyperlipidemia Follow-Up ?? Rate your low fat/cholesterol diet?: poor ?? Taking statin? Yes, no muscle aches from statin ?? Other lipid medications/supplements?: none ?? Amount of exercise or physical activity: none routine but stays active during the day ?? Problems taking medications regularly: No ?? Medication side effects: none Diet: regular (no restrictions) Medication Followup of Gabapentin ?? Taking Medication as prescribed: yes ?? Side Effects: None ?? Medication Helping Symptoms: Yes - has been helping sleep but is still having leg pain Depression and anxiety - increased stress with family concerns. Medications going well - no side effects. Deos't feel that she needs to change medications at this time. No thoughts of self harm. Chronic neck pain - on cymbalta. Sleeping better with increased dosing of gabapentin - taking 1 in am, 1 at dinner, 2 at nighttime. Muscle relaxants helpful on back, not as much in the neck. No sedation noted with gabapentin. Most pain in the left lower back with radiation down the leg - goes down to knee/calf. Doesn't notice numbness, tingling, weakness. Has adjustable bed and hasn't helped legs as much. Struggling with payments from breast imaging - can't afford to go to physical therapy, have any additional imaging, or see a specialist at this time for her MSK issues. If walks too much, feet will go numb. GERD controlled with PPI. Having vaginal dryness and pain with intercourse after menopause. Tried OTC lubricants with no improvement. Interested in trial of vaginal estrogen. Problem list and histories reviewed & adjusted, as indicated. Additional history: as documented Problem list, Medication list, Allergies, and Medical/Social/Surgical histories reviewed in EPIC andupdated as appropriate. ROS: Constitutional, msk, neuro, cardiovascular, pulmonary, gi and gu systems are negative, except as otherwise noted. OBJECTIVE: BP 110/76 mmHg Pulse 80 Temp(Src) 97.2 ??F (36.2 ??C) (Tympanic) Ht 5' 2.5 (1.588 m) Wt 184lb (83.462 kg) BMI 33.10 kg/m2 LMP 10/30/2011 Body mass index is 33.1 kg/(m^2). GENERAL: alert and no distress RESP: lungs clear to auscultation - no rales, rhonchi or wheezes CV: regular rate and rhythm, normal S1 S2, no S3 or S4, no murmur, click or rub, no peripheral edemaand peripheral pulses strong PSYCH: mentation appears normal, affect normal/bright Diabetic foot exam: normal DP and PT pulses, no trophic changes or ulcerative lesions and normal sensory exam Diagnostic Test Results: Results for orders placed or performed in visit on 12/03/15 Lipid panel reflex to direct LDL Result Value Ref Range Cholesterol 152 <200 mg/dL Triglycerides 109 <150 mg/dL HDL Cholesterol 51 >49 mg/dL LDL Cholesterol Calculated 79 <100 mg/dL Non HDL Cholesterol 101 <130 mg/dL TSH with free T4 reflex Result Value Ref Range TSH 3.93 0.40 - 4.00 mU/L Thyroid stimulating immunoglobulin Result Value Ref Range Thyroid Stim Immunog <1.0 Reference range: <=1.3 Unit: TSI index (Note) Test Performed by: [facility] - [address] [address] Sequins Stringer: Huseyin Dash II, M.D., Ph.D. ASSESSMENT/PLAN: ICD-10-CM 1. Type 2 diabetes mellitus without complication (H) E11.9 FOOT EXAM EYE EXAM (SIMPLE-NONBILLABLE) JAY NOT PRESCRIBED, INTENTIONAL, 2. Recurrent major depressive disorder, remission status unspecified (H) F33.9 Well controlled, continue current medications 3. Hyperlipidemia LDL goal <100 E78.5 On statin 4. Fibromyalgia M79.7 Continue current medications, encouraged exercise, looking into [place] for pool access 5. Symptomatic menopausal or female climacteric states N95.1 estradiol (ESTRACE) 0.1 MG/GM vaginal cream New med today - reviewed risks/benefits 6. Anxiety F41.9 7. History of lumbar fusion Z98.89 Chronic low back pain with sciatica - recommended MRI, orthopedics evaluation - patient wishes to delay at this point - will update me when she is ready to pursue 8. Colon cancer screening Z12.11 Fecal colorectal cancer screen (FIT) 10. 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 Diabetes ??? Lipids ??? Recheck Medication Initial BP 110/76 mmHg Pulse 80 Temp(Src) 97.2 ??F (36.2 ??C) (Tympanic) Ht 5' 2.5 (1.588 m) Wt 184 lb (83.462 kg) BMI 33.10 kg/m2 LMP 10/30/2011 Estimated body mass index is 33.1 kg/(m^2)as calculated from the following: Height as of this encounter: 5' 2.5 (1.588 m). Weight as of this encounter: 184 lb (83.462 kg). BP completed using cuff size: regular documented in this encounter Plan of Treatment Not on filedocumented as of this encounter Procedures Procedure Name Priority Date/Time Associated Diagnosis Comme nts EYE EXAM Routine 12/22/2015 9:27 AM Type 2 diabetes mellit us (SIMPLE-NONBILLABLE) CDT without complication (H) documented in this encounter Results Fecal colorectal cancer screen (FIT) (01/07/2016 11:41 AM CDT) Analysis Performed At Patho logist Time Signature Occult Blood Negative [facility] FIT [facility] Specimen Anatomical Collection Method Collection Time Receive d Time (Source) Location / / Volume Laterality Stool specimen 01/07/2016 11:41 6 (specimen) AM CDT 11:42 AM CDT Vanda Guerrero MD LAB - STOOLS ORDERABLES Performing Organization Address City/State/ZIP Code Phon e Number [facility] [address] [place], [place] [id number] [place] [address] documented in this encounter Visit Diagnoses Diagnosis Type 2 diabetes mellitus without complic ation (H) - Primary Recurrent major depressive disorder, rem ission status unspecified (H) Hyperlipidemia LDL goal <100 Other and unspecified hyperlipidemia Fibromyalgia Mylagia and myositis, unspecified Symptomatic menopausal or female climact rosanna states Anxiety Anxiety state, unspecified History of lumbar fusion Colon cancer screening Special screening for malignant neoplasm s, colon Screening for diabetic peripheral neurop athy Special screening for other neurological conditions documented in this encounter Additional Health Concerns Assessment Noted Time PHQ-9 Depression Total Score: 10 12/23/2015 7:15 AM CD T documented as of this encounter Care Teams Welder/Fabricator Relationship Specialty Start Date End Date Vanda Guerrero MD PCP - General Internal Medicine 04/08/15 01/08/[address] [facility] [place] [address] documented as of this encounter
--- OUTSIDE RECORDS SUMMARY | 2022-01-17 22:13 | XMS_ITS | Encounter Summary ---
:1965 Author Organization [facility] Address [address] [place] [address] Care Team Providers Name Role Phone Vanda Guerrero MD Primary Care Provider [phone] Encounter Details Date Type Department Care Team Description 04/04/2016 Radiant Appointment [facility] Agatha Null, Pain in both feet [facility] [place], [address] [facility] Podiatry/Foot and [place], [place] Ankle Surgery [phone] [address] [phone] [facility] [address] [place] [address] Social History Tobacco Use Types [...] How often do you attend jewish or rastafari Patient refused 08/08/2019 services? Do [...] Date/Time Associated Diagnosis Comme nts XR FOOT BILATERAL Routine 04/04/2016 10:13 AM Pain in both fee t Results for this G/E 3 VIEWS CDT procedure are i n the results section. documented in this encounter Results XR Foot Bilateral G/E 3 Views (04/04/2016 10:13 AM CDT) Anatomical Region Laterality Modality Foot, Ankle Bilateral Computed Radiography Specimen (Source) Anatomical Location Collection Method / Collectio n Time Received Time / Laterality Volume Impressions 04/05/2016 10:19 AM CDT IMPRESSION: Mild bilateral pes planus. JOSE DAO MD Narrative 04/05/2016 10:19 AM CDT XR FOOT BILATERAL G/E 3 VW 04/04/2016 10:13 AM HISTORY: Bilateral foot pain. COMPARISON: Right foot, 12/31/2009 FINDINGS: 4 views of the right foot. Mil d inferior navicular tilt. Osseous structures are otherwise within normal limits. 4 views of the left foot. Mild inferior navicular tilt. Osseous structures are otherwise within normal l imits. Procedure Note Jose Dao MD - 04/05/2016For matting of this note might be different from the original. XR FOOT BILATERAL G/E 3 VW 04/04/2016 10 :13 AM HISTORY: Bilateral foot pain. COMPARISON: Right foot, 12/31/2009 FINDINGS: 4 views of the right foot. Mil d inferior navicular tilt. Osseous structures are otherwise within normal limits. 4 views of the left foot. Mild inferior navicular tilt. Osseous structures are otherwise within normal l imits. IMPRESSION: Mild bilateral pes planus. JOSE DAO MD Agatha SHEPHERDM, Podiatry/Foot and Ankle Surgery IMG DIAGNOSTIC IMAGING ORDERABLES documented in this encounter Visit Diagnoses Diagnosis Pain in both feet Pain in limb documented in this encounter Additional Health Concerns Assessment Noted Time PHQ-9 Depression Total Score: 10 12/23/2015 7:15 AM CD T documented as of this encounter Care Teams Doctor Of Podiatry Relationship Specialty Start Date End Date Vanda Guerrero MD PCP - General Internal Medicine 04/08/15 01/08/19 [address] [facility] [place] [address] documented as of this encounter
--- OUTSIDE RECORDS SUMMARY | 2022-01-17 22:13 | XMS_ITS | Encounter Summary ---
:1965 Author Organization [facility] Address [address] [place] [address] Care Team Providers Name Role Phone Vanda Guerrero MD Primary Care Provider [phone] Reason for Visit Reason Onset Date Comments Refill Request 11/05/2015 simvastatin, duloxet ine, citalopram Encounter Details Date Type Department Care Team Description 11/05/2015 Refill [facility] Vanda Lal, Refill Request 1440 Clintonirina Bass MD (simvastatin, [place] [address] [place] [address] duloxetine, citalopram) [phone] [facility] [place] [id number] (Wo rk) Social History Tobacco Use Types [...] How often do you attend jainism or mormon Patient refused 08/08/2019 services? Do [...] Telephone Encounter - Kallie Mishra RN - 11/09/2015 9:42 AM CDT Pharmacy calling to follow up on refill requests. They also sent Citalopram & Duloxetine. Citalopram discontinued in error, patient has been filling this regularly per pharmacy. Prescription approved per [facility] Refill Protocol. CITALOPRAM Last Written Prescription Date: 10/06/14 Last Fill Quantity: 90; # refills: PRN Last PHQ-9 score on record= PHQ-9 SCORE 07/08/2015 Total Score - Total Score MyChart - Total Score 13 CYMBALTA Last Written Prescription Date: 10/06/14 Last Quantity: 180, # refills: PRN CREATININE Date Value Ref Range Status 09/30/2015 0.67 0.52 - 1.04 mg/dL Final AST 19 09/30/2015 ALT 47 09/30/2015 BP Readings from Last 3 Encounters: 11/01/15 114/66 09/29/15 114/68 07/08/15 100/68 Telephone Encounter - Eri Middleton - 11/05/2015 1:08 PM CDT SIMVASTATIN 20MG Last Written Prescription Date: 05/11/2015 Last Fill Quantity: 90, # refills: 1 Last Office Visit with [facility], [facility] or [facility] prescribing provider: 11/01/2015 Next 5 appointments (look out 90 days) Dec 22, 2015 9:00 AM Office Visit with Vanda Guererro MD [facility] [address] [place] [address] [place]NDEZ [phone] CHOL 153 08/10/2014 HDL 61 08/10/2014 LDL 76 08/10/2014 TRIG 79 08/10/2014 CHOLHDLRATIO 2.5 08/10/2014 documented in this encounter Plan of Treatment Not on filedocumented as of this encounter Visit Diagnoses Diagnosis Hyperlipidemia LDL goal <100 - Primary Other and unspecified hyperlipidemia Major depressive disorder, recurrent (H) Major depressive disorder, recurrent epi sode, unspecified Anxiety Anxiety state, unspecified Fibromyalgia Mylagia and myositis, unspecified documented in this encounter Additional Health Concerns Assessment Noted Time PHQ-9 Depression Total Score: 13 07/09/2015 7:49 AM CS T documented as of this encounter Care Teams Professor Of French Relationship Specialty Start Date End Date Vanda Guerrero MD PCP - General Internal Medicine 04/08/15 01/08/[address] [facility] [address] [place], [place] [address] documented as of this encounter
--- OUTSIDE RECORDS SUMMARY | 2022-01-17 22:13 | XMS_ITS | Encounter Summary ---
:1965 Author Organization [facility] Address [address] [place] [address] Care Team Providers Name Role Phone Vanda Guerrero MD Primary Care Provider [phone] Reason for Visit Reason Onset Date Comments Vaginal Problem 04/18/2016 spotting Encounter Details Date Type Department Care Team Description 04/18/2016 Telephone [facility] Vanda Lal Vaginal Problem 14[address] [facility] MD Catarino (spotting) [place] [id number] [address] [facility] [phone] [facility] [place] [address] (Wo rk) Social [...] How often do you attend sabianist or adventism Patient refused 08/08/2019 services? Do [...] this encounter Miscellaneous Notes Telephone Encounter - Vanda Guerrero MD - 04/19/2016 8:40 AM HOG STICKER Patient has appt with me later this month - will discuss in more detail at that time. STICKER Telephone Encounter - Kallie Mishra RN - 04/18/2016 5:11 PM CST Patient calling to report vaginal spotting x 2 days, pink when she wipes, she has not had a menstrual cycle for 1.5 year. Has felt suprapubic pressure for a few months and a few days before the spotting, this was a normal symptom when she was having menstrual cycles. Feels that it will stop today. Reviewed worrisome signs and symptoms to watch for. Offered appointment with OB and/or seeing Dr. Guerrero. Patient comfortable seeing Dr. Guerrero, would like to wait versus seeing CERTIFIED PERSONAL CHEF. Patient will call with any new or worsening symptoms. FYI sent to Dr. Guerrero per patient request. STICKER documented in this encounter Plan of Treatment Not on filedocumented as of this encounter Visit Diagnoses Not on filedocumented in this encounter Additional Health Concerns Assessment Noted Time PHQ-9 Depression Total Score: 10 12/23/2015 7:15 AM CD T documented as of this encounter Care Teams Slab Off Mill Tender Relationship Specialty Start Date End Date Vanda Guerrero MD PCP - General Internal Medicine 04/08/15 01/08/19 [address] [facility] [place] [address] documented as of this encounter
--- OUTSIDE RECORDS SUMMARY | 2022-01-17 22:13 | XMS_ITS | Encounter Summary ---
:1965 Author Organization [facility] Address [address] [place] [address] Care Team Providers Name Role Phone Vanda Guerrero MD Primary Care Provider [phone] Encounter Details Date Type Department Care Team Description 09/30/2015 Orders Only [facility] Eag an Type 2 diabetes mellitus wit hout complication (H); [address] Chronic fatigue [place] [id number] Social History Tobacco Use Types Packs/Day Years [...] How often do you attend rastafari or restoration Patient refused 08/08/2019 services? Do [...] Diagnosis Comme nts VITAMIN D DEFICIENCY Routine 09/30/2015 9:22 Chronic fatigue R esults for this SCREENING AM CDT procedure are i n the results section. TSH WITH FREE T4 Routine 09/30/2015 9:22 Type 2 diabetes Resul ts for this REFLEX AM CDT mellitus without procedure a re in complication (H) the results section. T4 FREE Routine 09/30/2015 9:22 Type 2 diabetes Results f or this AM CDT mellitus without procedure a re in complication (H) the results section. ALBUMIN RANDOM URINE Routine 09/30/2015 9:22 Type 2 diabetes R esults for this QUANTITATIVE AM CDT mellitus without procedure a re in complication (H) the results section. HEMOGLOBIN A1C Routine 09/30/2015 9:22 Type 2 diabetes Results for this AM CDT mellitus without procedure a re in complication (H) the results section. COMPREHENSIVE Routine 09/30/2015 9:22 Type 2 diabetes Results for this METABOLIC PANEL AM CDT mellitus without procedur e are in complication (H) the results section. VITAMIN B12 Routine 09/30/2015 9:22 Chronic fatigue Results f or this AM CDT procedure are i n the results section. documented in this encounter Results T4 free (09/30/2015 9:22 AM CDT) athologist Signature T4 Free 1.01 0.76 - 1.46 [facility] ng/dL [facility] Specimen Anatomical Collection Method Collection Time Receive d Time (Source) Location / / Volume Laterality 09/30/2015 9:22 AM 6 9:23 CDT AM CDT Vanda Guerrero MD LAB - BLOOD ORDERABLES Performing Organization Address City/State/ZIP Code Phon e Number [facility] [address] [place] [address] Microalbumin quantitative random urine (09/30/2015 9:22 AM CDT) athologist Signature Creatinine 174 mg/dL [place] Urine [facility] Albumin Urine 10 mg/L [place] mg/L [facility] Albumin Urine 5.67 0 - 25 [place] mg/g Cr mg/g Cr [facility] Specimen Anatomical Collection Method Collection Time Receive d Time (Source) Location / / Volume Laterality Urine specimen 09/30/2015 9:22 AM 016 9:23 (specimen) CDT AM CDT Vanda Guerrero MD LAB - URINE ORDERABLES Performing Organization Address City/State/ZIP Code Phon e Number [facility] [address] [place] [address] [facility] [address] [place] [address], U [phone] Vitamin D Deficiency (09/30/2015 9:22 AM CDT) athologist Signature Vitamin D 36 20 - 75 [facility] Deficiency ug/L [facility] Comment: Season, race, dietary intake, and treatm ent affect the concentration of 65-mpbtaii-Kuiiryc D. Values may decrea se during winter [...] Location / / Volume Laterality Blood specimen 09/30/2015 9:22 AM 016 9:23 (specimen) CDT AM CDT Vanda Guerrero MD LAB - BLOOD ORDERABLES Performing Organization Address City/[facility]/ZIP [facility] Phon e Number [address] Vitamin B12 (09/30/2015 9:22 AM CDT) athologist Signature Vitamin B12 482 193 - 986 [facility] pg/mL [facility] Comment: Interp: [phone] = Normal Specimen Anatomical Collection Method Collection Time Receive d Time (Source) Location / / Volume Laterality Blood specimen 09/30/2015 9:22 AM 016 9:23 (specimen) CDT AM CDT Vanda Guerrero MD LAB - BLOOD ORDERABLES Performing Organization Address City/[facility]/ZIP Code Phon e Number [address] (ABNORMAL) TSH with free T4 reflex (09/30/2015 9:22 AM CDT) athologist Signature TSH 0.07 (L) 0.40 - [facility] 4.00 mU/L [facility] Specimen Anatomical Collection Method Collection Time Receive d Time (Source) Location / / Volume Laterality Blood specimen 09/30/2015 9:22 AM 016 9:23 (specimen) CDT AM CDT Vanda Guerrero MD LAB - BLOOD ORDERABLES Performing Organization Address City/[facility]/ZIP Code Phon e Number [facility] [address] [place] [address] (ABNORMAL) Comprehensive metabolic panel (09/30/2015 9:22 AM CDT) Patholo gist Method Time Signature Sodium 145 (H) 133 - 144 [place] mmol/L [facility] Potassium 4.0 3.4 - 5.3 [facility] mmol/L [facility] Chloride 110 (H) 94 - 109 [place] mmol/L [facility] Carbon Dioxide 25 20 - 32 [facility] mmol/L [facility] Anion Gap 10 3 - 14 [facility] mmol/L [facility] Glucose 104 (H) 70 - 99 [place] mg/dL [facility] Urea Nitrogen 10 7 - 30 [facility] mg/dL [facility] Creatinine 0.67 0.52 - [facility] 1.04 [facility] mg/dL [facility] GFR Estimate >90 >60 [facility] Non GFR Calc mL/min/1. CLINICS 7m2 [facility] GFR Estimate If >90 >60 [facility] Black GFR Calc mL/min/1. CLIN ICS 7m2 [facility] Calcium 9.7 8.5 [facility] mg/dL [facility] Bilirubin Total 0.4 0.2 - 1.3 [facility] mg/dL [facility] Albumin 3.6 3.4 - 5.0 [facility] g/dL [facility] Protein Total 8.2 6.8 - 8.8 [facility] g/dL [facility] Alkaline 148 40 - 150 [facility] Phosphatase U/L [facility] ALT 47 0 - 50 [facility] U/L [facility] AST 19 0 - 45 [facility] U/L [facility] Specimen Anatomical Collection Method Collection Time Receive d Time (Source) Location / / Volume Laterality Blood specimen 09/30/2015 9:22 AM 016 9:23 (specimen) CDT AM CDT Vanda Guerrero MD LAB - BLOOD ORDERABLES Performing Organization Address City/State/ZIP Code Phon e Number [facility] [address] [place] [address] (ABNORMAL) Hemoglobin A1c (09/30/2015 9:22 AM CDT) P athologist Signature Hemoglobin A1C 6.2 (H) 4.3 - 6.0 [facility] Specimen Anatomical Collection Method Collection Time Receive d Time (Source) Location / / Volume Laterality Blood specimen 09/30/2015 9:22 AM 016 9:23 (specimen) CDT AM CDT Vanda Guerrero MD LAB - BLOOD ORDERABLES Performing Organization Address City/State/ZIP Code Phon e Number [facility] [address] [facility] [place] [address] documented in this encounter Visit Diagnoses Diagnosis Type 2 diabetes mellitus without complic ation (H) Chronic fatigue Other malaise and fatigue documented in this encounter Additional Health Concerns Assessment Noted Time PHQ-9 Depression Total Score: 13 07/09/2015 7:49 AM CS T documented as of this encounter Care Teams Certified Income Tax Preparer Relationship Specialty Start Date End Date Vanda Guerrero MD PCP - General Internal Medicine 04/08/15 01/08/19 [address] [facility] [place] [address] documented as of this encounter
--- OUTSIDE RECORDS SUMMARY | 2022-01-17 22:13 | XMS_ITS | Encounter Summary ---
:1965 Author Organization [facility] Address [address] [place] [address] Care Team Providers Name Role Phone Vanda Guerrero MD Primary Care Provider [phone] Reason for Visit Reason Comments RECHECK Encounter Details Date Type Department Care Team Description 11/01/2015 Office Visit [facility] Vanda Guerrero History of lumbar fusion (Primary Dx); Pino Toribio MD History of fusion of cervical spine; [address] [facility] [address] [facility] Recurrent major depressive d isorder, remission status unspecified (H); [place] [phone] [facility] Chronic left-sided low back pain with le ft-sided sciatica; [phone] [place] [address] Thyroid function test abnormal [phone] (Wo rk) Social History Tobacco Use Types [...] 08/08/2019 relatives? How often do you attend yarsani or gnosticist Patient refused 08/08/2019 services? Do you belong to any clubs or organizations such as No 08/08/2019 yarsani groups, unions, fraternal or athletic groups, or [...] Sign Reading Time Taken Comments Blood Pressure 114/66 11/01/2015 11:15 AM CDT Pulse 74 11/01/2015 11:15 AM CDT Temperature 37.2 ??C (98.9 ??F) 11/01/2015 11:15 AM CDT Respiratory Rate - - Oxygen Saturation 100% 11/01/2015 11:15 AM CDT Inhaled Oxygen Concentration - - Weight 81.6 kg (180 lb) 11/01/2015 11:15 AM CDT Height 158.8 cm (5' 2.5) 11/01/2015 11:15 AM CDT Body Mass Index 32.4 11/01/2015 11:15 AM CDT documented in this encounter Patient Instructions Patient InstructionsVanda Guerrero MD - 11/01/2015 11:40 AM CDT Increase your gabapentin dosing - take 2 tabs at night to start and then increase the other daily doses to 2 tabs when you are ready Keep up your walking in the park! Come back for fasting labs in the next 2 weeks - we'll recheck your thyroid labs at the same time. Come back to see me for a visit 6-8 weeks documented in this encounter Progress Notes Vanda Guerrero MD - 11/01/2015 11:08 AM CDT SUBJECTIVE: Megan Choi is a 50 year old female who presents to clinic today for the following health issues: Medication Followup of Gabapentin ?? Taking Medication as prescribed: yes - questions regarding when to take medication however ?? Side Effects: None ?? Medication Helping Symptoms: Yes but still has one persistent area Since last visit, daughter and one grandchild moved out. Other grandson moving out soon. Has been taking care of her 8 year old grandson - just officially diagnosed with ADHD and has been busy with hisappointments. New worries about sister. Mood has been ok. Listens to a certain radio station to helpkeep her spirits lifted. Fibromyalgia, chronic neck and back pain - recently started gabapentin. Currently taking in the morning, at dinner time and at bedtime. Doesn't make her tired. Also taking tizanidine with all doses anddoesn't noticed too much sedation. Has been getting block of 5-6 hours of sleep. Believes that medica tions have been helping, but still gets right low back and neck pain. No new neurologic symptoms. Due for fasting labs again in early November. Had abnormal thyroid testing and has noticed some changes in skin and hair - needs to have repeated. Reviewed recent lab work and normal breast imaging from last exam. Problem list and histories reviewed & adjusted, as indicated. Additional history: as documented Problem list, Medication list, Allergies, and Medical/Social/Surgical histories reviewed in [facility] andupdated as appropriate. ROS: Constitutional, msk, neuro, endo systems are negative, except as otherwise noted. OBJECTIVE: BP 114/66 mmHg Pulse 74 Temp(Src) 98.9 ??F (37.2 ??C) (Tympanic) Ht 5' 2.5 (1.588 m) Wt 180lb (81.647 kg) BMI 32.38 kg/m2 SpO2 100% LMP 10/30/2011 Body mass index is 32.38 kg/(m^2). GENERAL: healthy, alert and no distress PSYCH: mentation appears normal, affect normal/bright Component Latest Ref Rng 09/30/2015 Sodium 133 - 144 mmol/L 145 (H) Potassium 3.4 - 5.3 mmol/L 4.0 Chloride 94 - 109 mmol/L 110 (H) Carbon Dioxide 20 - 32 mmol/L 25 Anion Gap 3 - 14 mmol/L 10 Glucose 70 - 99 mg/dL 104 (H) Urea Nitrogen 7 - 30 mg/dL 10 Creatinine 0.52 - 1.04 mg/dL 0.67 GFR Estimate >60 mL/min/1.7m2 >90 . . . GFR Estimate If Black >60 mL/min/1.7m2 >90 . . . Calcium 8.5 - 10.1 mg/dL 9.7 Bilirubin Total 0.2 - 1.3 mg/dL 0.4 Albumin 3.4 - 5.0 g/dL 3.6 Protein Total 6.8 - 8.8 g/dL 8.2 Alkaline Phosphatase 40 - 150 U/L 148 ALT 0 - 50 U/L 47 AST 0 - 45 U/L 19 Creatinine Urine 174 Microalbumin Urine 10 Microalbumin mg/g Cr 0 - 25 mg/g Cr 5.67 Hemoglobin A1C 4.3 - 6.0 % 6.2 (H) TSH 0.40 - 4.00 mU/L 0.07 (L) Vitamin B12 193 - 986 pg/mL 482 Vitamin D Deficiency screening 20 - 75 ug/L 36 T4 Free 0.76 - 1.46 ng/dL 1.01 Diagnostic Test Results: Results for orders placed or performed during the hospital encounter of 09/30/15 US Breast Bilateral Limited 1-3 Quadrants Narrative DIAGNOSTIC MAMMOGRAM BILATERAL DIGITAL w/CAD w/TOMOSYNTHESIS ULTRASOUND BILATERAL BREAST 09/30/15 HISTORY: Tender lumps in the breasts bilaterally and in the left axilla. COMPARISON: Prior mammograms through 2007. BREAST DENSITY: Scattered fibroglandular densities FINDINGS: Bilateral mammogram is within normal limits. No mammographic or sonographic abnormalities are identified in the region of pain and lump in the right breast at 10:00-11:00, in the left breast at 2:00 or in the left axilla. Incidentally noted is a morphologically normal 1.4 cm lymph node in the left axilla. Any further evaluation should be based on clinical findings and clinical suspicion. Impression IMPRESSION: BI-RADS CATEGORY: 1 - NEGATIVE RECOMMENDED FOLLOW-UP: Annual Mammography BRIGIDO MACK MD ASSESSMENT/PLAN: ICD-10-CM 1. History of lumbar fusion Z98.89 gabapentin (NEURONTIN) 300 MG capsule Pain control improving, but not yet optimal - continue upward titration of gabapentin and follow up in 6-8 weks 2. History of fusion of cervical spine Z98.1 gabapentin (NEURONTIN) 300 MG capsule 3. Recurrent major depressive disorder, remission status unspecified (H) F33.9 Stable, continue to monitor 4. Chronic left-sided low back pain with left-sided sciatica M54.42 gabapentin (NEURONTIN) 300 MG capsule 5. Thyroid function test abnormal R94.6 Recheck in 2 weeks Patient Instructions Increase your gabapentin dosing - take 2 tabs at night to start and then increase the other daily doses to 2 tabs when you are ready Keep up your walking in the park! Come back for fasting labs in the next 2 weeks - we'll recheck your thyroid labs at the same time. Come back to see me for a visit 6-8 weeks Vanda Guerrero MD [facility] documented in this encounter Nursing Notes Lori Weber - 11/01/2015 11:16 AM CDT Chief Complaint Patient presents with ??? RECHECK Initial BP 114/66 mmHg Pulse 74 Temp(Src) 98.9 ??F (37.2 ??C) (Tympanic) Ht 5' 2.5 (1.588 m) Wt 180 lb (81.647 kg) BMI 32.38 kg/m2 SpO2 100% LMP 10/30/2011 Estimated body mass index is 32.38 kg/(m^2) as calculated from the following: Height as of this encounter: 5' 2.5 (1.588 m). Weight as of this encounter: 180 lb (81.647 kg). BP completed using cuff size: large documented in this encounter Miscellaneous Notes Addendum Note - Birdie Golden RN - 11/01/2015 5:14 PM CDT Addended by: BIRDIE GOLDEN on: 11/01/2015 05:14 PM Modules accepted: Orders, Medications documented in this encounter Plan of Treatment Not on filedocumented as of this encounter Visit Diagnoses Diagnosis History of lumbar fusion - Primary History of fusion of cervical spine Arthrodesis status Recurrent major depressive disorder, rem ission status unspecified (H) Chronic left-sided low back pain with le ft-sided sciatica Thyroid function test abnormal Nonspecific abnormal results of thyroid function study documented in this encounter Additional Health Concerns Assessment Noted Time PHQ-9 Depression Total Score: 13 07/09/2015 7:49 AM CS T documented as of this encounter Care Teams Cloth Shrinking Tester Relationship Specialty Start Date End Date Vanda Guerrero MD PCP - General Internal Medicine 04/08/15 01/08/[address] [facility] [address] [place], [place] [address] documented as of this encounter
--- OUTSIDE RECORDS SUMMARY | 2022-01-17 22:13 | XMS_ITS | Encounter Summary ---
:1965 Author Organization [facility] Address [address] [place] [address] Care Team Providers Name Role Phone Vanda Guerrero MD Primary Care Provider [phone] Reason for Visit Reason Onset Date Comments Refill Request 02/09/2016 SIMVASTATIN 20MG Refill Request 02/09/2016 CITALOPRAM 20MG Encounter Details Date Type Department Care Team Description 02/09/2016 Refill [facility] Vanda Lal, Refill Request 1440 Priscilla Bass MD (SIMVASTATIN 20MG); [place] [phone] 4[address] [facility] Refill Request [phone] NASIR ANDRE (CITALOPRAM 20MG) [place] [address] (Wo rk) Social [...] How often do you attend worship or shinto Patient refused 08/08/2019 services? Do [...] Telephone Encounter - Vanda Guerrero MD - 02/11/2016 3:11 PM CDT Ok to wait until upcoming physical to repeat PHQ9 - agree with refill. Telephone Encounter - Mimi Roberts RN - 02/11/2016 2:20 PM CDT Simvastatin Prescription approved per [facility] Refill Protocol. Celexa Medication is being filled for 1 time refill only due to: pt needs updated PHQ9-ok to wait until upcoming appt 03/23/16? Kassie Roberts, RN Telephone Encounter - Marisa Matthew - 02/10/2016 3:35 PM CDT CITALOPRAM 20MG Last Written Prescription Date: 11/09/2015 Last Fill Quantity: 90, # refills: 0 Last Office Visit with [facility] primary care provider: 12/22/2015 Next 5 appointments (look out 90 days) Mar 23, 2016 10:20 AM Office Visit with Vanda Guerrero MD [facility] ([facility] [address] [place] [phone] Last PHQ-9 score on record= PHQ-9 SCORE 12/22/2015 Total Score - Total Score MyChart - Total Score 10 Telephone Encounter - Marisa Matthew - 02/09/2016 7:45 AM CDT SIMVASTATIN 20MG Last Written Prescription Date: 11/09/2015 Last Fill Quantity: 90, # refills: 0 Last Office Visit with [facility], [facility] or [facility] prescribing provider: 12/22/2015 Next 5 appointments (look out 90 days) Mar 23, 2016 10:20 AM Office Visit with Vanda Guerrero MD [facility] ([facility]) [address] [place] [phone] CHOL 152 12/03/2015 HDL 51 12/03/2015 LDL 79 12/03/2015 TRIG 109 12/03/2015 CHOLHDLRATIO 2.5 08/10/2014 documented in this encounter Plan of Treatment Not on filedocumented as of this encounter Visit Diagnoses Diagnosis Hyperlipidemia LDL goal <100 - Primary Other and unspecified hyperlipidemia Anxiety Anxiety state, unspecified documented in this encounter Additional Health Concerns Assessment Noted Time PHQ-9 Depression Total Score: 10 12/23/2015 7:15 AM CD T documented as of this encounter Care Teams Plating Foreman Relationship Specialty Start Date End Date Vanda Guerrero MD PCP - General Internal Medicine 04/08/15 01/08/[address] [facility] [address] [place], [place] [address] documented as of this encounter
--- OUTSIDE RECORDS SUMMARY | 2022-01-17 22:13 | XMS_ITS | Encounter Summary ---
:1965 Author Organization [facility] Address [address] [place] [address] Care Team Providers Name Role Phone Vanda Guerrero MD Primary Care Provider [phone] Encounter Details Date Type Department Care Team Description 01/07/2016 Orders Only [facility] Eag an Colon cancer screening [facility] [place] [address] Social History Tobacco Use Types Packs/Day [...] How often do you attend moravian or buddhist Patient refused 08/08/2019 services? Do [...] Date/Time Associated Comments Diagnosis FECAL COLORECTAL Routine 01/07/2016 11:41 AM Colon cancer Resu lts for this CANCER SCREEN FIT CDT screening procedure are in the results section. documented in this encounter Results Fecal colorectal cancer screen (FIT) (01/07/2016 11:41 AM CDT) Analysis Performed At Patho logist Time Signature Occult Blood Negative NEG [facility] FIT [facility] Specimen Anatomical Collection Method Collection Time Receive d Time (Source) Location / / Volume Laterality Stool specimen 01/07/2016 11:41 6 (specimen) AM CDT 11:42 AM CDT Vanda Guerrero MD LAB - STOOLS ORDERABLES Performing Organization Address City/State/ZIP Code Phon e Number [facility] [address] [place], [place] [id number] [place] [address] documented in this encounter Visit Diagnoses Diagnosis Colon cancer screening Special screening for malignant neoplasm s, colon documented in this encounter Additional Health Concerns Assessment Noted Time PHQ-9 Depression Total Score: 10 12/23/2015 7:15 AM CD T documented as of this encounter Care Teams Classics Teacher Relationship Specialty Start Date End Date Vanda Guerrero MD PCP - General Internal Medicine 04/08/15 01/08/19 [address] [facility] [place] [address] documented as of this encounter
--- OUTSIDE RECORDS SUMMARY | 2022-01-17 22:13 | XMS_ITS | Encounter Summary ---
:1965 Author Organization [facility] Address [address] [place] [address] Care Team Providers Name Role Phone Vanda Guerrero MD Primary Care Provider [phone] Reason for Visit (Routine) - Closed Specialty Diagnoses / Procedures Referred By Contact Refer red To Contact Radiology / Radiology. Diagnoses Epic Order, sb pt. Voicemail Reminder placed 05/03/16 [facility] [place] [address] [place] [address] Phone: Fax: Referral ID Status Reason Start Date Expiration Date Visits Requ ested Visits Authorized [id number] Closed 05/05/2016 05/05/2017 1 1 Encounter Details Date Type Department Care Team Description 05/05/2016 Hospital Encounter [facility] Agatha Null B ilateral ankle [facility] DPM, joint pain [id number] [facility] [place] [address] [facility] [address] [facility] [address] [place], [place] [id number] Social History Tobacco Use Types Packs/Day Years [...] How often do you attend caodaism or restoration Patient refused 08/08/2019 services? Do [...] or female climacteric states fluticasone (FLONASE) 50 [place] 1-2 sprays 3 Bottle 3 05/0306/12/2017 MCG/ACT [...] Date/Time Associated Diagnosis Comme nts MR ANKLE RIGHT W/O Routine 05/05/2016 1:06 PM Bilateral ankle Results for this CONTRAST [facility] [place] joint pain procedure are i n the results section. documented in this encounter Results MR Ankle Right w/o Contrast (05/05/2016 1:06 PM [facility] [place]) Anatomical Region Laterality Modality Right Ankle, SUBRAD MR MSK, UMP MR MSK M agnetic Resonance Specimen (Source) Anatomical Location Collection Method / Collectio n Time Received Time / Laterality Volume Impressions 05/05/2016 4:51 PM [facility] [place] IMPRESSION: ?? 1. 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 This is potentially symptomatic and clinical correlation for pain in this region is recommended. 2. Longitudinal split-type tear of the p eroneus brevis tendon. 3. Focus of mild subchondral bone marrow edema in the proximal aspect of the medial cuneiform bone of uncertai n significance. This may be related to early degenerative change but a minimal stress injury is not excluded. ROHAN PINK MD Narrative 05/05/2016 4:51 PM [facility] [place] MR ANKLE RIGHT WITHOUT CONTRAST 05/05/2016 1:06 PM HISTORY: ??Right ankle/midfoot pain for 6 months without specific injury. Evaluate for stress fracture or tendon tear. TECHNIQUE: ??Sagittal and coronal T1, ST IR. ?? Axial proton density, T2. COMPARISON: None. FINDINGS: Osseous and Cartilaginous Structures: ?? There is a type II accessory navicular with a small amount of bone ma rrow edema in the accessory ossicle adjacent to the articulation wit h the remainder of the navicular. There is also some degenerati ve bony spurring at this articulation (image 24 of series 8 and i mage 17 of series 3). Clinical correlation for medial-sided pain in thi s region is recommended. There is a small subtle ill-defined focus of s ubchondral bone marrow edema in the medial cuneiform bone, adjacent t o the navicular cuneiform joint. This may be related to early dege nerative change, although a minimal stress injury without fracture i s not excluded (image 13 of series 3). No other bony abnormalities. The major articular cartilages appear normal. Posterior Tibial and Flexor Tendons: ??N o tear or significant tendinosis of the posterior tibial tendo n, flexor digitorum longus tendon, or flexor hallucis longus tendon . Peroneal Tendons: ??There is at least a partial thickness longitudinal split-type tear of the peroneus brevis t endon extending from the level of the lateral malleolus distally for at least 2.5 cm (image 23 of series 7). The remainder of the peroneus brevis tendon more distally appears normal. The peroneus longus tend on is unremarkable. Achilles Tendon: ??No tear or significan t [...] be different from the original. MR ANKLE RIGHT WITHOUT CONTRAST 05/05/20 16 1:06 PM HISTORY: Right ankle/midfoot pain for 6 months without specific injury. Evaluate for stress fracture or tendon tear. TECHNIQUE: Sagittal and coronal T1, STIR . Axial proton density, T2. COMPARISON: None. FINDINGS: Osseous and Cartilaginous Structures: Th ere is a type II accessory navicular with a small amount of bone ma rrow edema in the accessory ossicle adjacent to the articulation wit h the remainder of the navicular. There is also some degenerati ve bony spurring at this articulation (image 24 of series 8 and i mage 17 of series 3). Clinical correlation for medial-sided pain in thi s region is recommended. There is a small subtle ill-defined focus of s ubchondral bone marrow edema in the medial cuneiform bone, adjacent t o the navicular cuneiform joint. This may be related to early dege nerative change, although a minimal stress injury without fracture i s not excluded (image 13 of series 3). No other bony abnormalities. The major articular cartilages appear normal. Posterior Tibial and Flexor Tendons: No tear or significant tendinosis of the posterior tibial tendo n, flexor digitorum longus tendon, or flexor hallucis longus tendon . Peroneal Tendons: There is at least a pa rtial thickness longitudinal split-type tear of the peroneus brevis t endon extending from the level of the lateral malleolus distally for at least 2.5 cm (image 23 of series 7). The remainder of the peroneus brevis tendon more distally appears normal. The peroneus longus tend on is unremarkable. Achilles Tendon: No tear or significant tendinosis. [...] remarkable. IMPRESSION: 1. 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 This is potentially symptomatic and clinical correlation for pain in this region is recommended. 2. Longitudinal split-type tear of the p eroneus brevis tendon. 3. Focus of mild subchondral bone marrow edema in the proximal aspect of the medial cuneiform bone of uncertai n significance. This may be related to early degenerative change but a minimal stress injury is not excluded. ROHAN PINK MD Agatha Null DPM, Podiatry/Foot and Ankle Surgery IMG MRI ORDERABLES documented in this encounter Visit Diagnoses Diagnosis Bilateral ankle joint pain documented in this encounter Additional Health Concerns Assessment Noted Time PHQ-9 Depression Total Score: 11 05/02/2016 7:09 AM CS T documented as of this encounter Care Teams Repair Service Clerk Relationship Specialty Start Date End Date Vanda Guerrero MD PCP - General Internal Medicine 04/08/15 01/08/[address] [facility] [address] [place], [place] [address] documented as of this encounter
--- OUTSIDE RECORDS SUMMARY | 2022-01-17 22:13 | XMS_ITS | Encounter Summary ---
:1965 Author Organization [facility] Address [address] [place] [address] Care Team Providers Name Role Phone Vanda Guerrero MD Primary Care Provider [phone] Vanda Guerrero MD Unavailable JeanaNoreen girard WASH DRILLER RETAIL GENERAL MANAGER Unavailable JeanaNoeren girard WASH DRILLER RETAIL GENERAL MANAGER Unavailable [phone] JeanaNoreen girard WASH DRILLER RETAIL GENERAL MANAGER Primary Care Provider Kalyan Galvan Unavailable Unavailable Lashae Trevino [facility] Unavailable [phone] Eduardo Sharma MD Unavailable Rios Monteiro MD Unavailable Marcelo Artis PA-C Unavailable [phone] Rodrigo Man PA-C Unavailable Encounter Details Date Type Department Care Team Description 02/11/2016 [facility] Vanda Ray MD [facility] [address] [place] [address] [place] [address] (Wo rk) Social History [...] How often do you attend voodoo or anabaptist Patient refused 08/08/2019 services? Do [...] of this encounter Visit Diagnoses Diagnosis Anxiety - Primary Anxiety state, unspecified documented in this encounter Additional Health Concerns Infection Onset Date Last Indicated Resolved Time Rule Out COVID-19 08/25/2020 08/25/2020 08/26/2020 3:2 3 PM CDT Assessment Noted Time PHQ-9 Depression Total Score: 10 12/23/2015 7:15 AM CD T documented as of this encounter Care Teams Culinary Worker Relationship Specialty Start Date End Date Vanda Guerrero, PCP - General Internal Medicine 04/08/15 01/08/[address] [place] [address] [place] [id number] Vanda Guerrero, PCP - Assigned PCP 07/24/16 06/15/[address] [place] [address] [place] [id number] Noreen [place] PCP - Assigned PCP 06/16/18 08/13/18 SEAN Haley RETAIL GENERAL MANAGER [address] [place] [address] [place] [id number] Noreen [place] PCP - General Nurse Practitioner 01/09/19 12/12/21 SEAN Haley RETAIL GENERAL MANAGER [address] [place] [address] [place] [id number] [place] Assigned PCP 06/16/18 SEAN Haley RETAIL GENERAL MANAGER [address] [place] [address] [place] [id number] Kalyan Galvan Personal Advocate & 08/08/19 Liaison (PAL) Lashae Trevino Pharmacist Pharmacist 10/14/19 12/01/20 CLAUDIA Beck [address] [place] [id number] Eduardo Sharma MD Assigned Sleep Provider 04/02/20 05/07/21 [address] [place] [id number] Rios Monteiro MD Assigned Musculoskeletal 04/02/20 08/24/20 [address] [facility] Provider [address] [place], [place] [address] Marcelo Artis Assigned Musculoskeletal 08/25/20 08/20/21 MIKAYLA Nuno Provider [address] [facility] [address] [place], [place] [id number] Rodrigo Man Assigned Surgical 08/25/2011/27 MIKAYLA Lacy Provider [address] [place], [place] [address] documented as of this encounter
--- OUTSIDE RECORDS SUMMARY | 2022-01-17 22:13 | XMS_ITS | Encounter Summary ---
:1965 Author Organization [facility] Address [address] [place] [address] Care Team Providers Name Role Phone Vanda Guerrero MD Primary Care Provider [phone] Reason for Visit Reason Onset Date Comments Refill Request 12/06/2015 METFORMIN 500MG Encounter Details Date Type Department Care Team Description 12/06/2015 Refill [facility] Vanda Lal, Refill Request [address] [employer] Kali SALDANA (METFORMIN 500MG) [place] [id number] 76[address] [facility] [phone] [facility] [place] [address] (Wo rk) Social [...] How often do you attend methodist or tenriism Patient refused 08/08/2019 services? Do [...] this encounter Miscellaneous Notes Telephone Encounter - Bambi Chaudhary RN - 12/08/2015 4:31 PM CDT Prescription approved per [facility] Refill Protocol. Bambi Chaudhary RN Telephone Encounter - Marisa Matthew - 12/06/2015 8:14 AM CDT METFORMIN 500MG Last Written Prescription Date: 09/10/2015 Last Fill Quantity: 180, # refills: 0 Last Office Visit with G, P or [facility] prescribing provider: 11/01/2015 Next 5 appointments (look out 90 days) Dec 22, 2015 9:00 AM Office Visit with Vanda Guerrero MD [facility] [address] [facility] [place] [address] MICROL 10 09/30/2015 MICROALBUMIN 5.67 09/30/2015 CREATININE Date Value Ref Range Status 09/30/2015 0.67 0.52 - 1.04 mg/dL Final ] CHOL 152 12/03/2015 HDL 51 12/03/2015 LDL 79 12/03/2015 TRIG 109 12/03/2015 CHOLHDLRATIO 2.5 08/10/2014 AST 19 09/30/2015 ALT 47 09/30/2015 BP Readings from Last 3 Encounters: 11/01/15 114/66 09/29/15 114/68 07/08/15 100/68 A1C 6.2 09/30/2015 A1C 6.0 04/08/2015 A1C [...] documented as of this encounter Care Teams Returned Goods Sorter Relationship Specialty Start Date End Date Vanda Guerrero MD PCP - General Internal Medicine 04/08/15 01/08/[address] [facility] [address] documented as of this encounter
--- OUTSIDE RECORDS SUMMARY | 2022-01-17 22:13 | XMS_ITS | Encounter Summary ---
:1965 Author Organization [facility] Address [address] [place] [address] Care Team Providers Name Role Phone Vanda Guerrero MD Primary Care Provider [phone] Encounter Details Date Type Department Care Team Description 10/03/2015 Orders Only [facility] Vanda Guerrero Abnormal finding on [place]ino Toribio MD thyroid function test [address] (Primary Dx) [place] [address] [facility] [phone] [place] [address] (Wo rk) Social History [...] How often do you attend christianity or restorationist Patient refused 08/08/2019 services? Do you belong to any clubs or organizations such as 08/08/2019 christianity groups, unions, fraternal or athletic [...] on filedocumented as of this encounter Results TSH with free T4 reflex (12/03/2015 8:50 AM CDT) P athologist Signature TSH 3.93 0.40 - 4.00 [facility] mU/L [facility] Specimen Anatomical Collection Method Collection Time Receive d Time (Source) Location / / Volume Laterality Blood specimen 12/03/2015 8:50 AM 016 8:55 (specimen) CDT AM CDT Vanda Guerrero MD LAB - BLOOD ORDERABLES Performing Organization Address City/State/ZIP Code Phon e Number [facility] [address] [place] [address] documented in this encounter Visit Diagnoses Diagnosis Abnormal finding on thyroid function shirley t - Primary Nonspecific abnormal results of thyroid function study documented in this encounter Additional Health Concerns Assessment Noted Time PHQ-9 Depression Total Score: 13 07/09/2015 7:49 AM CS T documented as of this encounter Care Teams Circulation Worker Relationship Specialty Start Date End Date Vanda Guerrero MD PCP - General Internal Medicine 04/08/15 01/08/19 [address] [facility] [address] documented as of this encounter
--- OUTSIDE RECORDS SUMMARY | 2022-01-17 22:13 | XMS_ITS | Encounter Summary ---
:1965 Author Organization [facility] Address [address] [place] [id number] Care Team Providers Name Role Phone Vanda Guerrero MD Primary Care Provider [phone] Reason for Visit Reason Comments Musculoskeletal Problem both, left foot worse. Encounter Details Date Type Department Care Team Description 04/04/2016 Office Visit [facility] Agatha Null, Pain in both feet (Primary Dx); [facility] [place] DPM, Podiatry/Foot Peroneal tendinitis of left lower extremity; [address] [facility] Peroneal tendinitis of right lower extre mity; [place] [address] Seda capellan vus, congenital; [id number] [address] Venous insufficiency of both lower extre mities; [phone] [place], [place] Fibromyalgia; [address] Type 2 diabetes mellitus without complic ation, without long-term current use of insulin (H); [phone] Non morbid obes ity, unspecified obesity type (Work) Social History Tobacco Use Types Packs/Day Years [...] How often do you attend adventism or taoist Patient refused 08/08/2019 services? Do you belong to any clubs or organizations such as No 08/08/2019 adventism groups, [employer], fra[employer]ovalact or athletic groups, or school groups? How [...] Sign Reading Time Taken Comments Blood Pressure 122/80 04/04/2016 9:44 AM CDT Pulse 87 04/04/2016 9:44 AM CDT Temperature - - Respiratory Rate - - Oxygen Saturation - - Inhaled Oxygen Concentration - - Weight 85.3 kg (188 lb) 04/04/2016 9:44 AM CDT Height 158.8 cm (5' 2.5) 04/04/2016 9:44 AM CDT Body Mass Index 33.84 04/04/2016 9:44 AM CDT documented in this encounter Patient Instructions Patient InstructionsDeacon Juancarloslonimichael WYATT - 04/04/2016 10:24 AM CDT Please follow up in [address] Null can be found at these clinics: Sunday AM [facility] [address] [place] [address] Sunday PM Surgery Sunday All Day [facility] [address] [place], [place] [id number] Sunday [facility] [address] [place], [place] [id number] All Day surgery Sunday AM [facility] [place] [address], [address] [place], [place] [address] Sunday PM [facility] [address] [facility], [address] [place] [address] TO SCHEDULE SURGERY, call Yecenia at [phone]. To Schedule appointments call: [phone] General (after hours): Patient [phone] DIABETES AND YOUR FEET What effect does diabetes have on the feet? Diabetes can result in several problems in the feet including ulcers (open sores) and amputations. Two of the most important reasons why people develop foot problems when they have diabetes is : 1. Neuropathy (loss of feeling) and 2. Vascular disease (loss or decrease of blood flow). What is neuropathy? Neuropathy is a term used to describe a loss of nerve function. Patients with diabetes are at risk of developing neuropathy if their sugars continue to run high and are above the normal value. One theory for neuropathy is that the extra sugar in the body enters the nerves and is broken down. These by-products build up in the nerve causing it to swell and impairing nerve function. Often times, this can be prevented by controlling your sugars, dieting and exercise. How do I know if I have neuropathy? When a person develops neuropathy, they usually begin to feel numbness or tingling in their feet and sometime in their legs. Other symptoms may include painful burning or hot feet, tingling or feeling like insects or ants are crawling on your feet or legs. If the diabetes is sever and the sugars run high for long periods of time, neuropathy can also occur in the hands. What is vascular disease? Vascular disease is a term used to describe a loss or decrease in circulation (blood flow). There is a problem in getting blood and oxygen to areas that need it. Similar to neuropathy, sugars can build up in the reyes of the arteries (blood vessels) and cause them to become swollen, thickened and hardened. This decreases the amount of blood that can go to an area that needs it. Though this is common in the legs of diabetic patients, it can also affect other arteries (blood vessels) in the body such as in the heart and eyes. How do I know if I have vascular disease? In the legs, vascular disease usually results in cramping.Patients who develop leg cramps after walking the same distance every time (i.e. One block, half a mile, ect.) need to let their doctors know so that their circulation may be checked. Cramps causing severe pain in the feet and/or legs while sleeping and the cramps go away when you stand or hang your legs off the side of the bed, may also be a sign of poor blood circulation. Occasional cramping in cold weather or on rare occasions with activity may not be due to poor circulation, but you should inform your doctor. How can these problems be prevented? The ma to prevention is good blood [...] reach your target weight and maintain it. Pain Management Strategies: 1.Blood Sugar Control - Most important 2. Medications such as: Amytriptylline, duloxetine, gabapentin, lyrica, tramadol 3. Nutritional therapy: Vitamin B6 (100mg daily), Vitamin B12 (75mcg daily), Vitamin D 2000 IU daily), Alpha-Lipoic Acid (600-1800mg daily), Qutgem-M-Lwsdrpetl (500-1000mg TID, L-methyl folate (1500mcgdaily) Metformin can block Vitamin B6 and B12 so it is important to supplement Diabetic Foot Care Recommendations The following are recommendations for avoiding serious foot problems or injury DO'S 1.Wash your feet with lukewarm water and a mild soap and then dry them thoroughly, especially between the toes. 2. Examine your feet daily looking for cuts, corns, blisters, cracks, ect..., especially after wearing new shoes. Make sure to look between your toes. If you cannot see the bottom of your feet, set a mirror on the floor and hold your foot over it, or ask a spouse, friend or family member to examine your feet for you. Contact your doctor immediately if new problems are noted or if sores are not healing. 3. Immediately apply moisturizer to the tops and bottoms of your feet, avoiding areas between the toes. Hand lotion (Intesive Care, Mishel, Eucerin, Neutrogena, Curel, ect...) is sufficient unless yourdoctor prescribes a medicated lotion. Apply sunscreen to your feet when going swimming outside. 4.Use clean comfortable shoes, wear white socks (if you have any bleeding or drainage, you will seeit on white socks). Socks should not have [...] any sharp edges with a cardboard nail file. If you have neuropathy, peripheral vascular disease or cannot see that well to trim your own toenails, see a medical professional for care. DONT'S 1. Do not soak your feet if [...] any of these to your feet: - over the counter medicine for corns or warts - Harsh chemicals like boric acid - Do not self-treat corns, cuts, blisters or infections. Always consult your doctor. 4. Do not wear sandals, slippers or walk barefoot, especially on hot sand or concrete or other harsh surfaces. 5. If you smoke, stop!!! TENDONITIS Tendons are the strong fibrous portions [...] farther away from the chair, reach forward infront of you by bending at the waist. Avoid bending your knee any more as you do this. Repeat this 10 times. To make the exercise more challenging, reach farther in front of you. Do 2 sets of 10. pipe insulator the same position as above. While keeping your arch height, reach the hand that is farther away from the chair across your body toward the chair. The farther you reach, the more challenging the exercise. Do 2 sets of 10. Resisted ankle eversion: Sit with both legs stretched out in front of you, with your feet about a shoulder's width apart. Tie a loop in one end of elastic tubing. Put the foot of your injured leg through the loop so that the tubing goes around the arch of that foot and wraps around the outside of theother foot. Hold onto the other end of the tubing with your hand to provide tension. Turn the foot of your injured leg up and out. Make sure you keep your other foot still so that it will allow the tubing to stretch as you move the foot of your injured leg. Return to the starting position. Do 2 sets of 15. If you have access to a [...] you in case you lose your balance. documented in this encounter Progress Notes Agatha Null DPM, Podiatry/Foot and Ankle Surgery - 04/04/2016 9:48 AM CDT PATIENT HISTORY: Megan Choi is a 51 year old female who presents to clinic for pain to both feet. Left is worse than right. Has been going on for months. Notes sugar is well controlled. Very sore with walking. Worse as day goes on. Denies injury. History of fracture 15 years ago in foot. Wouldlike to know what is causing the pain. Review of Systems: Patient denies fever, chills, rash, wound, stiffness, numbness, weakness, heart burn, blood in stool, chest pain with activity, calf pain when walking, shortness of breath with activity, chronic cough, easy bleeding/bruising, swelling of ankles, excessive thirst, fatigue, depression, anxiety. Patient admits to limping. PAST MEDICAL HISTORY: Past Medical History Diagnosis Date ??? Dvt femoral (deep venous thrombosis) (H) 04/17 post surgical, stopped coumadin 01/16 ??? Diabetes mellitus (H) ??? IFG (impaired fasting glucose) 10/03/2015 PAST SURGICAL HISTORY: Past Surgical History Procedure Laterality Date ??? C spinal fusion,ant,ea adnl level 2004 L5, S1, Repeated in 2005 ??? C spinal fusion,ant,ea adnl level 2006 SI joints ??? C spinal fusion,ant,ea adnl level 2000 C5-C7 fused ??? section MEDICATIONS: Current outpatient prescriptions: ??? omeprazole (PRILOSEC) 20 MG capsule, Take 2 capsules (40 mg) by mouth daily, Disp: 180 capsule, Rfl: 3 ??? SUMAtriptan (IMITREX) 25 MG tablet, Take 1-2 tablets (25-50 mg) by mouth at onset of headache for migraine May repeat in 2 hours. Max 8 tablets/24 hours., Disp: 18 tablet, Rfl: 3 ??? metFORMIN (GLUCOPHAGE) 500 MG tablet, Take 1 tablet (500 mg) by mouth 2 times daily (with meals), Disp: 180 tablet, Rfl: 1 ??? loratadine-pseudoePHEDrine (CLARITIN-D 24-HOUR) 10-240 MG per tablet, Take 1 tablet by mouth daily, Disp: 90 tablet, Rfl: 3 ??? simvastatin (ZOCOR) 20 MG tablet, Take 1 tablet (20 mg) by mouth At Bedtime, Disp: 90 tablet, Rfl: 3 ??? citalopram (CELEXA) 20 MG tablet, Take 1 tablet (20 mg) by mouth daily, Disp: 90 tablet, Rfl: 0 ??? tiZANidine (ZANAFLEX) 4 MG tablet, Take 1-2 tablets (4-8 mg) by mouth 2 times daily as needed for muscle spasms, Disp: 90 tablet, Rfl: 5 ??? JAY NOT PRESCRIBED, INTENTIONAL,, JAY Inhibitor not prescribed due to Symptomatic hypotension not due to excessive diuresis, Disp: 0 each, Rfl: 0 ??? topiramate (TOPAMAX) 50 MG tablet, Take 3 tablets (150 mg) by mouth daily, Disp: 270 tablet, Rfl: 3 ??? estradiol (ESTRACE) 0.1 MG/GM vaginal cream, Place 2 g vaginally each night for 2 weeks, then use three times weekly, Disp: 42.5 g, Rfl: 11 ??? DULoxetine (CYMBALTA) 30 MG capsule, Take 1 capsule (30 mg) by mouth 2 times daily, Disp: 180 capsule, Rfl: 2 ??? gabapentin (NEURONTIN) 300 MG capsule, Take 2 capsules (600 mg) by mouth 3 times daily, Disp: 180 capsule, Rfl: 11 ??? multivitamin, therapeutic with minerals (MULTI-VITAMIN) TABS, Take 1 tablet by mouth daily, Disp: , Rfl: ??? blood glucose monitoring (ONE TOUCH ULTRA 2) meter device kit, Use to test blood sugars 1 times daily or as directed., Disp: 1 kit, Rfl: 0 ??? fluticasone (FLONASE) 50 MCG/ACT nasal spray, [place] 1-2 sprays into both nostrils daily, Disp: 3Package, Rfl: 3 ??? blood glucose (ONE TOUCH ULTRA) test strip, Use to test blood sugars 1 times daily or as directed., Disp: 100 strip, Rfl: prn ??? blood glucose monitoring (ONE TOUCH DELICA) lancets, Use to test blood sugars 1 times daily or as directed., Disp: 1 Box, Rfl: prn ??? blood glucose monitoring (ACCU-CHEK MULTICLIX) lancets, Use to test blood sugar 2 times daily oras directed., Disp: 1 Box, Rfl: 11 ? ? JAY/ARB NOT PRESCRIBED, INTENTIONAL,, 1 each daily JAY & ARB not prescribed due to not needed, Disp: , Rfl: ??? blood glucose (ACCU-CHEK JANICE) test strip, 1 strip by In Vitro route 2 times daily, Disp: 100 strip, Rfl: prn ??? ASPIRIN PO, Take 81 mg by mouth daily., Disp: , Rfl: ALLERGIES: Allergies Allergen Reactions ??? Erythromycin SOCIAL HISTORY: Social History Social History ??? Marital Status: Spouse Name: N/A ??? Number of Children: N/A ??? 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 Smoking status: Never Smoker ??? Smokeless tobacco: Never Used ??? Alcohol Use: Yes Comment: Rare ??? Drug Use: No ??? Sexual Activity: Partners: Male Control/ Protection: Surgical Comment: Tubal Other Topics Concern ??? Parent/Sibling W/ Cabg, Mi Or Angioplasty Before 65f 55m? No Social History Narrative FAMILY HISTORY: Family History Problem Relation Age of Onset ??? Cardiovascular Mother CO age 72 ??? Cardiovascular Father CO early 40s, subsequent bipass ??? DIABETES Mother [...] Mother 70 ??? KIDNEY DISEASE Brother 55 EXAM:Vitals: Ht 5' 2.5 (1.588 m) Wt 188 lb (85.276 kg) BMI 33.82 kg/m2 LMP 10/30/2011 BMI= Body mass index is 33.82 kg/(m^2). General appearance: Patient is alert and fully [...] PT pulses are intact & regular bilaterally. edema and varicosities noted. CFTand skin temperature is normal to both lower extremities. Neurologic: Lower extremity sensation is intact via semmes geo. Musculoskeletal: Patient is ambulatory without assistive device or brace. Increase arch height. Painon palpation of the peroneal tendon insertion both feet. Radiographs: No fractures noted. Increase arch height. ASSESSMENT: Pain in both feet Peroneal tendinitis of left lower extremity Peroneal tendinitis of right lower extremity Pes cavus, congenital Venous insufficiency of both lower extremities Fibromyalgia Type 2 diabetes mellitus without complication, without long-term current use of insulin (H) Non morbid obesity, unspecified obesity type PLAN: Reviewed patient's chart in [facility]. Reviewed proper diabetic foot care. Reviewed and discussed causes of tendonitis. We discussed treatments such as immobiliation, icing, stretching, heel lifts, orthotics, physical therapy, MRI. Patient has history of DVT and do not want to put in to cam boot. Was fitted for ankle braces. Recommended stretches, icing, rest, and inserts. If pain continues, may consider boot and anticoagulent therapy. Patient will follow up in 6 weeks. If not better, possible MRI. Agatha Null DPM, Pod Weight management plan: Patient was referred to their PCP to discuss a diet and exercise plan. CDT documented in this encounter Nursing Notes Zita Worthy CMA - 04/04/2016 9:48 AM CDT Chief Complaint Patient presents with ??? Musculoskeletal Problem both, left foot worse. Initial BP 122/80 mmHg Pulse 87 Ht 5' 2.5 (1.588 m) Wt 188 lb (85.276 kg) BMI 33.82 kg/m2 LMP 10/30/2011 Estimated body mass index is 33.82 kg/(m^2) as calculated from the following: Height as of this encounter: 5' 2.5 (1.588 m). Weight as of this encounter: 188 lb (85.276 kg). BP completed using cuff size: regular.Zita Alejandro MA documented in this encounter Plan of Treatment Not on filedocumented as of this encounter Results XR Foot Bilateral G/E [...] bilateral pes planus. JOSE DAO MD Agatha Null DPM, Podiatry/Foot and Ankle Surgery IMG DIAGNOSTIC IMAGING ORDERABLES documented in this encounter Visit Diagnoses Diagnosis Pain in both feet - Primary Pain in limb Peroneal tendinitis of left lower extrem ity Other enthesopathy of ankle and tarsus Peroneal tendinitis of right lower extre mity Other enthesopathy of ankle and tarsus Pes cavus, congenital Talipes cavus Venous insufficiency of both lower extre mities Fibromyalgia Mylagia and myositis, unspecified Type 2 diabetes mellitus without complic ation, without long-term current use of insulin (H) Non morbid obesity, unspecified obesity type Pain in both feet Pain in limb documented in this encounter Additional Health Concerns Assessment Noted Time PHQ-9 Depression Total Score: 10 12/23/2015 7:15 AM CD T documented as of this encounter Care Teams 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
--- OUTSIDE RECORDS SUMMARY | 2022-01-17 22:13 | XMS_ITS | Encounter Summary ---
:1965 Author Organization [place] Address [address] [place] [address]. [place] [address] Care Team Providers Name Role Phone Vanda Guerrero MD Primary Care Provider [phone] Reason for Referral Consultation - Closed Specialty Diagnoses / Procedures Referred By Contact Refer red To Contact Diagnoses Left foot pain Vanda Guerrero MD [facility] [address] [facility] [address] [facility] [place] [address] [address] [place] [address] Phone: Fax: Referral ID Status Reason Start Date Expiration Date Visits Requ ested Visits Authorized [id number] Closed 03/26/2016 03/26/2017 1 1 Reason for Visit Reason Comments Diabetes Lipids Recheck Medication Flu Shot Encounter Details Date Type Department Care Team Description 03/23/2016 Office Visit [facility] Vanda Guerrero Type 2 d iabetes mellitus without complication, without long-term current use of insulin (H) (Primary Dx); Pino Toribio MD Elevated alkaline phosphatase level; [address] [facility] Left foot pain; [address] Moderate episode of recurrent major depr essive disorder (H); [id number] [place] [address] Gastroesophageal reflux disease without esophagitis; [phone] Fibromyalgia; (Work) Migraine without status migrainosus, not intractable, unspecified migraine type; Cervical pain; Upper back pain ; Need for Tdap v accination; Need for prophy lactic vaccination and inoculation against influenza Social History Tobacco Use Types Packs/Day Years [...] How often do you attend sabianist or latter day Patient refused 08/08/2019 services? [...] Sign Reading Time Taken Comments Blood Pressure 116/70 03/23/2016 4:35 PM CDT Pulse 78 03/23/2016 4:35 PM CDT Temperature 36.4 ??C (97.6 ??F) 03/23/2016 4:35 PM CDT Respiratory Rate - - Oxygen Saturation 99% 03/23/2016 4:35 PM CDT Inhaled Oxygen Concentration - - Weight 85.6 kg (188 lb 12.8 oz) 03/23/2016 4:35 PM CDT Height 158.8 cm (5' 2.5) 03/23/2016 4:35 PM CDT Body Mass Index 33.98 03/23/2016 4:35 PM CDT documented in this encounter Progress Notes Vanda Guerrero MD - 03/23/2016 4:35 PM CDT SUBJECTIVE: Megan Choi is a 50 year old female who presents to clinic today for the following health issues: Diabetes Follow-up ?? Patient is checking blood sugars: rarely. Results range from 90 to 100 ?? Diabetic concerns: None ?? Symptoms of hypoglycemia (low blood sugar): none ?? Paresthesias (numbness or burning in feet) or sores: Yes , continuing since last visit ?? Date of last diabetic eye exam: updated Hyperlipidemia Follow-Up ?? Rate your low fat/cholesterol diet?: fair ?? Taking statin? Yes, no muscle aches from statin ?? Other lipid medications/supplements?: none ?? Amount of exercise or physical activity: None ?? Problems taking medications regularly: No ?? Medication side effects: none ?? Diet: regular (no restrictions) Foot pain has been worsening - neuropathy is there, but most problematic is point tenderness and swelling over lateral left foot. This has been impairing ability to be active. Recently started therapy at [facility] - going weekly for the next 3 months. Depression stable, increased stress related to family issues. Appreciating therapy - just in the initial stages now. GERD has been worse for a few months - no changes in diet, but stress level has been high. Using omeprazole 20mg daily. Chronic neck and upper back pain - using gabapentin and zanaflex regularly with some improvement in symptoms. Holds tension in neck and shoulders. Current insurance does not allow for physical therapy coverage. Has a relative who is a massage therapist - hoping to ask for her assistance. Migraines - worsening recently. No new neurologic symptoms, frequency of headaches just increased - now getting on average twice weekly - prior to that, was 3-4 per month. Doesn't currently use any rescue medication. Problem list and histories reviewed & adjusted, as indicated. Additional history: as documented Problem list, Medication list, Allergies, and Medical/Social/Surgical histories reviewed in EPIC andupdated as appropriate. ROS: Constitutional, HEENT, cardiovascular, pulmonary, gi, neuro, msk, psych systems are negative, exceptas otherwise noted. OBJECTIVE: BP 116/70 mmHg Pulse 78 Temp(Src) 97.6 ??F (36.4 ??C) (Tympanic) Ht 5' 2.5 (1.588 m) Wt 188lb 12.8 oz (85.639 kg) BMI 33.96 kg/m2 SpO2 99% LMP 10/30/2011 Body mass index is 33.96 kg/(m^2). GENERAL: alert and no distress RESP: lungs clear to auscultation - no rales, rhonchi or wheezes CV: regular rate and rhythm, normal S1 S2, no S3 or S4, no murmur, click or rub, no peripheral edemaand peripheral pulses strong MS: tender to palpation over trapezius and scalene musculature, tender nodule lateral left foot NEURO: Normal strength and tone, mentation intact and speech normal PSYCH: mentation appears normal, anxious, fatigued and judgement and insight intact Diagnostic Test Results: pending ASSESSMENT/PLAN: ICD-10-CM 1. Type 2 diabetes mellitus without complication, without long-term current use of insulin (H) E11.9Comprehensive metabolic panel Hemoglobin A1c Well controlled, continue current medications 2. Elevated alkaline phosphatase level R74.8 GGT Slight elevation in alk phos - send GGT. No abdominal pain complaints during visit 3. Left foot pain M79.672 PODIATRY/FOOT & ANKLE SURGERY REFERRAL 4. Moderate episode of recurrent major depressive disorder (H) F33.1 Encouraged to continue in counseling, continue current medications 5. Gastroesophageal reflux disease without esophagitis K21.9 omeprazole (PRILOSEC) 20 MG capsule Worsening, double PPI dosing 6. Fibromyalgia M79.7 7. Migraine without status migrainosus, not intractable, unspecified migraine type G43.909 Trial of imitrex, recommended massage therapy, continue gabapentin, zanaflex 8. Cervical pain M54.2 Recommend massage, PHYSICAL THERAPY - patient's insurance doesn't currently cover - may at the start of 2017 - will alert me if changes. Continue current medication 9. Upper back pain M54.9 See above 10. Need for Tdap vaccination Z23 TDAP (ADACEL AGES 11-64) VACCINE ADMINISTRATION, INITIAL 11. Need for prophylactic vaccination and inoculation against influenza Z23 FLU VAC, SPLIT VIRUS IM > 3 YO (QUADRIVALENT) [10361] Vaccine Administration, Each Additional [24140] Vanda Guerrero MD [facility] Injectable Influenza Immunization Documentation 1. Is the person to be vaccinated sick today? No 2. Does the person to be vaccinated have an allergy to eggs or to a component of the vaccine? No 3. Has the person to be vaccinated today ever had a serious reaction to influenza vaccine in the past? No 4. Has the person to be vaccinated ever had Guillain-Olympia syndrome? No Form completed by patient documented in this encounter Nursing Notes Lori Weber - 03/23/2016 4:35 PM CDT Chief Complaint Patient presents with ??? Diabetes ??? Lipids ??? Recheck Medication Initial BP 116/70 mmHg Pulse 78 Temp(Src) 97.6 ??F (36.4 ??C) (Tympanic) Ht 5' 2.5 (1.588 m) Wt 188 lb 12.8 oz (85.639 kg) BMI 33.96 kg/m2 SpO2 99% LMP 10/30/2011 Estimated body mass index is 33.96 kg/(m^2) as calculated from the following: Height as of this encounter: 5' 2.5 (1.588 m). Weight as of this encounter: 188 lb 12.8 oz (85.639 kg). BP completed using cuff size: regular documented in this encounter Plan of Treatment Scheduled Referrals Name Type Priority Associated Diagnoses Order S chedule PODIATRY/FOOT & ANKLE Referral Routine Left foot pain Orde red: 03/26/2016 SURGERY REFERRAL documented as of this encounter Procedures Procedure Name Priority Date/Time Associated Comments Diagnosis HEMOGLOBIN A1C Routine 03/23/2016 7:17 PM Type 2 diabetes Resu lts for this CDT mellitus without procedure a re in complication, the results without long-term section. current use of insulin (H) GGT Routine 03/23/2016 7:17 PM Type 2 diabetes Result s for this CDT mellitus without procedure a re in complication, the results without long-term section. current use of insulin (H) COMPREHENSIVE Routine 03/23/2016 7:17 PM Type 2 diabetes Resul ts for this METABOLIC PANEL CDT mellitus without procedur e are in complication, the results without long-term section. current use of insulin (H) documented in this encounter Results GGT (03/23/2016 7:17 PM CDT) P athologist Signature GGT 33 0 - 40 U/L [facility] Specimen Anatomical Collection Method Collection Time Receive d Time (Source) Location / / Volume Laterality 03/23/2016 7:17 PM 6 7:19 CDT PM CDT Vanda Guerrero MD LAB - BLOOD ORDERABLES Performing Organization Address City/State/ZIP Code Phon e Number [facility] [address] [place] [address] (ABNORMAL) Hemoglobin A1c (03/23/2016 7:17 PM CDT) Patholo gist Method Time Signature Hemoglobin A1C 6.1 (H) 4.3 - 6.0 [facility] Specimen Anatomical Collection Method Collection Time Receive d Time (Source) Location / / Volume Laterality Blood specimen 03/23/2016 7:17 PM 016 7:19 (specimen) CDT PM CDT Vanda Guerrero MD LAB - BLOOD ORDERABLES Performing Organization Address City/State/ZIP Code Phon e Number [facility] [address] [place] [address] (ABNORMAL) Comprehensive metabolic panel (03/23/2016 7:17 PM CDT) [facility] Method Time Signature Sodium 142 133 - 144 [place] mmol/L [facility] Potassium 4.4 3.4 - 5.3 [place] mmol/L [facility] Chloride 110 (H) 94 - 109 [place] mmol/L [facility] Carbon Dioxide 29 20 - 32 [place] mmol/L [facility] Anion Gap 3 3 - 14 [place] mmol/L [facility] Glucose 106 (H) 70 - 99 [place] mg/dL [facility] Urea Nitrogen 17 7 - 30 [place] mg/dL [facility] Creatinine 0.77 0.52 - [place] 1.04 mg/dL [facility] GFR Estimate 78 >60 [place] mL/min/1.7 CLINICS m2 [facility] Comment: Non GFR Calc GFR Estimate If Black >90 >60 mL/min/1.7m2 F [facility] GFR Calc [facility] Calcium 9.6 8.5 - 10.1 mg/dL [place] [facility] ICS [facility] Bilirubin Total 0.3 0.2 - 1.3 mg/dL [facility] Albumin 3.8 3.4 - 5.0 g/dL [facility] Protein Total 7.9 6.8 - 8.8 g/dL [place] [facility] Alkaline Phosphatase 159 (H) 40 - 150 U/L [facility] ALT 30 0 - 50 U/L [facility] AST 16 0 - 45 U/L [facility] Specimen Anatomical Collection Method Collection Time Receive d Time (Source) Location / / Volume Laterality Blood specimen 03/23/2016 7:17 PM 016 7:19 (specimen) CDT PM CDT Vanda Guerrero MD LAB - BLOOD ORDERABLES Performing Organization Address City/State/ZIP Code Phon e Number [facility] [place] [address] [place] [address] documented in this encounter Visit Diagnoses Diagnosis Type 2 diabetes mellitus without complic ation, without long-term current use of insulin (H) - Primary Elevated alkaline phosphatase level Other nonspecific abnormal serum enzyme levels Left foot pain Pain in limb Moderate episode of recurrent major depr essive disorder (H) Gastroesophageal reflux disease without esophagitis Esophageal reflux Fibromyalgia Mylagia and myositis, unspecified Migraine without status migrainosus, not intractable, unspecified migraine type Cervical pain Cervicalgia Upper back pain Pain in thoracic spine Need for Tdap vaccination Need for prophylactic vaccination with c ombined ipinphipxt-ewwt[place]to-[place] (DTP) vaccine Need for prophylactic vaccination and in oculation against influenza documented in this encounter Additional Health Concerns Assessment Noted Time PHQ-9 Depression Total Score: 10 12/23/2015 7:15 AM CD T documented as of this encounter Care Teams Emt Basic Relationship Specialty Start Date End Date Vanda Guerrero MD PCP - General Internal Medicine 04/08/15 01/08/19 [address] [facility] [address] [place] [id number] documented as of this encounter
--- OUTSIDE RECORDS SUMMARY | 2022-01-17 22:13 | XMS_ITS | Encounter Summary ---
:1965 Author Organization [place] Address [address] [place] [address] Care Team Providers Name Role Phone Vanda Guerrero MD Primary Care Provider [phone] Encounter Details Date Type Department Care Team Description 12/03/2015 Orders Only [facility] Eag an Type 2 diabetes mellitus wit hout complication (H); [address] Abnormal finding on thyroid function test [place] [id number] Social History Tobacco Use Types Packs/Day Years [...] How often do you attend temple or orthodoxy Patient refused 08/08/2019 services? Do [...] Name Priority Date/Time Associated Diagnosis Comme nts TSH WITH FREE T4 Routine 12/03/2015 8:50 Abnormal finding on R esults for this REFLEX AM CDT thyroid function procedure a re in test the results section. THYROID STIMULATING Routine 12/03/2015 8:50 Abnormal finding o n Results for this IMMUNOGLOBULIN AM CDT thyroid function procedure are in test the results section. LIPID REFLEX TO DIRECT Routine 12/03/2015 8:50 Type 2 diabetes Results for this LDL PANEL AM CDT mellitus without procedure a re in complication (H) the results section. documented in this encounter Results Thyroid stimulating immunoglobulin (12/03/2015 8:50 AM CDT) [facility] Method Time Signature Thyroid Stim <1.0 [place] Immunog Reference range: <=1.3 CLINICS Unit: TSI index JACLYN (Note) Test Performed by: [place] [id number] Payroll And Benefits Manager: Huseyin Dash II, M.D., Ph.D. Specimen Anatomical Collection Method Collection Time Receive d Time (Source) Location / / Volume Laterality Blood specimen 12/03/2015 8:50 AM 016 8:55 (specimen) CDT AM CDT Vanda Guerrero MD LAB - BLOOD ORDERABLES Performing Organization Address City/[facility]/ZIP Code Phon e Number [place] [id number] [place] [address] TSH with free T4 reflex (12/03/2015 8:50 AM CDT) athologist Signature TSH 3.93 0.40 - 4.00 [facility] mU/L [facility] Specimen Anatomical Collection Method Collection Time Receive d Time (Source) Location / / Volume Laterality Blood specimen 12/03/2015 8:50 AM 016 8:55 (specimen) CDT AM CDT Vanda Guerrero MD LAB - BLOOD ORDERABLES Performing Organization Address City/[facility]/ZIP Code Phon e Number [facility] [address] [place] [address] Lipid panel reflex to direct LDL (12/03/2015 8:50 AM CDT) P athologist Signature Cholesterol 152 <200 mg/dL [facility] Triglycerides 109 <150 mg/dL [facility] S [facility] Comment: Fasting specimen HDL Cholesterol 51 >49 mg/dL [place] [facility] LDL Cholesterol Calculated 79 <100 mg/dL [facility] Comment: Desirable: <100 mg/dl Non HDL Cholesterol 101 <130 mg/dL [facility] Specimen Anatomical Collection Method Collection Time Receive d Time (Source) Location / / Volume Laterality Blood specimen 12/03/2015 8:50 AM 016 8:55 (specimen) CDT AM CDT Vanda Guerrero MD LAB - BLOOD ORDERABLES Performing Organization Address City/[facility]/ZIP Code Phon e Number [facility] [address] [place] [address] documented in this encounter Visit Diagnoses Diagnosis Type 2 diabetes mellitus without complic ation (H) Abnormal finding on thyroid function shirley t Nonspecific abnormal results of thyroid function study documented in this encounter Additional Health Concerns Assessment Noted Time PHQ-9 Depression Total Score: 13 07/09/2015 7:49 AM CS T documented as of this encounter Care Teams Oil Program Compliance Specialist Relationship Specialty Start Date End Date Vanda Guerrero MD PCP - General Internal Medicine 04/08/15 01/08/19 [address] [facility] [place] [id number] documented as of this encounter
--- OUTSIDE RECORDS SUMMARY | 2022-01-17 22:13 | XMS_ITS | Encounter Summary ---
:1965 Author Organization [facility] Address [address] [place] [id number] Care Team Providers Name Role Phone Vanda Borja MD Primary Care Provider [phone] Reason for Visit Reason Comments Physical Encounter Details Date Type Department Care Team Description 05/03/2016 Office Visit [facility] Vanda Borja for routine adult health examination with abnormal findings (Primary Dx); Pino Toribio MD Postmenopausal bleeding; [address] [facility] Moderate episode of recurren t major depressive disorder (H); DAVID Pringle DR Type 2 diabetes mellitus without complic ation, without long-term current use of insulin (H); [id number] DAVID [place] [id number] Fibromyalgia; [phone] Hyperlipidemia LDL goal <100; (Work) Gastroesophageal reflux disease without esophagitis; Anxiety; Non morbid obes ity, unspecified obesity type; Cervical cancer screening; Dysfunction of eustachian tube, bilateral Social History Tobacco Use Types Packs/Day Years [...] How often do you attend spiritism or hoahaoism Patient refused 08/08/2019 services? Do [...] Sign Reading Time Taken Comments Blood Pressure 122/78 05/03/2016 11:19 AM SCOOP OPERATOR Pulse 72 05/03/2016 11:19 AM SCOOP OPERATOR Temperature 36.4 ??C (97.6 ??F) 05/03/2016 11:19 AM SCOOP OPERATOR Respiratory Rate - - Oxygen Saturation - - Inhaled Oxygen Concentration - - Weight 85.3 kg (188 lb) 05/03/2016 11:19 AM SCOOP OPERATOR Height 157.5 cm (5' 2) 05/03/2016 11:19 AM SCOOP OPERATOR Body Mass Index 34.39 05/03/2016 11:19 AM SCOOP OPERATOR documented in this encounter Patient Instructions Patient InstructionsJodeetoanRejiLori Thomas - 05/03/2016 10:43 AM SCOOP OPERATOR [facility] Radiology: [phone] - call to set up pelvic ultrasound, then make appointment with LEGAL ADMINISTRATIVE SECRETARY here after that - Dr Nelson or Dr Ibarra Due for diabetes follow up in September Pap today Preventive Health Recommendations Female Ages 50 - [...] instead of white grains and rice. ??? Talk to your provider about Calcium and Vitamin D. Lifestyle ??? Exercise [...] eye doctor every 1 to 2 years. ??? P OPERATOR documented in this encounter Progress Notes Vanda Borja MD - 05/03/2016 10:43 AM CST SUBJECTIVE: CC: Megan Choi is an 51 year old woman who presents for preventive health visit. Physical Annual: Getting at least 3 servings of Calcium per day:: NO Bi-annual eye exam:: Yes Dental care twice a year:: Yes Sleep apnea or symptoms of sleep apnea:: Daytime drowsiness Diet:: Regular (no restrictions) Frequency of exercise:: None Taking medications regularly:: Yes Medication side effects:: None Additional concerns today:: YES HPI: Vaginal bleeding - last period 10/16/2014. Earlier this month, had vaginal bleeding - had three days -this would be typical for a period for her. Still has pressure sensation in her lower abdomen like her period is going to come again. Following with podiatry for foot pain - plans on MRI to look for tendon issues. Last pap smear was about 1.5 years ago. Normal results. Diabetes - decreased metformin dose by 500mg. Checking blood sugars, no matter what time of day or what she eats, blood sugar stays between 90 and 130. Last A1C 6.1%. Doing massage for body pains related to chronic neck issues and fibromyalgia - this is going well. Tolerating medications well. Having some ear popping and feels like they are full of fluid. Still using flonase regularly. Sees therapist weekly - mood has been stable. NO side effects from medications. No thoughts of self harm. HL - doing well on statin - no side effects noted. Today's PHQ-2 Score: PHQ-2 (??1998 Pfizer) 05/03/2016 Q1: Little interest or pleasure in doing things 1 Q2: Feeling down, depressed or hopeless 2 PHQ-2 Score 3 Little interest or pleasure in doing things - Feeling down, depressed or hopeless - PHQ-2 Score - Abuse: Current or Past(Physical, Sexual or Emotional)- No Do you feel safe in your environment - Yes Social History Substance Use Topics ??? Smoking status: Never Smoker ??? Smokeless tobacco: Never Used ??? Alcohol Use: Yes Comment: Rare The patient does not drink >3 drinks per day nor >7 drinks per week. Recent Labs Lab Test 12/03/15 0850 08/10/14 0856 06/08/14 0840 CHOL 152 153 197 HDL 51 61 57 LDL 79 76 125 TRIG 109 79 77 CHOLHDLRATIO -- 2.5 3.5 NHDL 101 -- -- Reviewed orders with patient. Reviewed health maintenance and updated orders accordingly - Yes Mammo Decision Support: Patient over age 50, mutual decision to screen reflected in health maintenance. Pertinent mammograms are reviewed under the imaging tab. History of abnormal Pap smear: NO - age 30- 65 PAP every 3 years recommended All Histories reviewed and updated in [facility]. ROS: 10 point ROS neg other than the symptoms noted above in the HPI. Problem list, Medication list, Allergies, and Medical/Social/Surgical histories reviewed in [facility] andupdated as appropriate. OBJECTIVE: BP 122/78 mmHg Pulse 72 Temp(Src) 97.6 ??F (36.4 ??C) (Tympanic) Ht 5' 2 (1.575 m) Wt 188 lb (85.276 kg) BMI 34.38 kg/m2 LMP 10/30/2011 EXAM: GENERAL: healthy, alert and no distress EYES: Eyes grossly normal to inspection, PERRL and conjunctivae and sclerae normal HENT: ear canals and TM's normal apart from clear middle ear effusion bilaterally, nose and mouth without ulcers or lesions [...] hepatosplenomegaly, no masses and bowel sounds normal (female): normal female external genitalia, normal urethral meatus, vaginal mucosa pink, moist, well rugated, and normal cervix/adnexa/uterus without masses or discharge MS: no gross musculoskeletal defects noted, no edema SKIN: no suspicious lesions or rashes NEURO: Normal strength and tone, mentation intact and speech normal PSYCH: mentation appears normal, affect normal/bright ASSESSMENT/PLAN: ICD-10-CM 1. Encounter for routine adult health examination with abnormal findings Z00.01 Hepatitis C Screen Reflex to HCV RNA Quant and Genotype Reviewed recent lab work 2. Postmenopausal bleeding N95.0 US Pelvic Complete with Transvaginal Need to evaluate further - no obvious cause of bleeding on exam today - patient to have US and then follow up with Director Of Curriculum And Instruction 3. Moderate episode of recurrent major depressive disorder (H) F33.1 Well controlled, continue current medications Continue counseling. 4. Type 2 diabetes mellitus without complication, without long-term current use of insulin (H) E11.9Well controlled, continue current medications 5. Fibromyalgia M79.7 Continue current treatment 6. Hyperlipidemia LDL goal <100 E78.5 Well controlled, continue current medications 7. Gastroesophageal reflux disease without esophagitis K21.9 Well controlled, continue current medications 8. Anxiety F41.9 citalopram (CELEXA) 20 MG tablet Well controlled, continue current medications 9. Non morbid obesity, unspecified obesity type E66.9 Encouraged in lifestyle changes 10. Cervical cancer screening Z12.4 Pap imaged thin layer screen with HPV - recommended age 30 - 65 years (select HPV order below) HPV High Risk Types DNA Cervical 11. Dysfunction of eustachian tube, bilateral H69.83 fluticasone (FLONASE) 50 MCG/ACT nasal spray COUNSELING: Special attention given to: Regular exercise Healthy diet/nutrition Vision screening Osteoporosis Prevention/Bone Health Colon cancer screening ([place])menopause management BP Screening: Last 3 BP Readings: BP Readings from Last 3 Encounters: 05/03/16 122/78 04/04/16 122/80 03/23/16 116/70 The following was recommended to the patient: Re-screen BP within a year and recommended lifestyle modifications reports that she has never smoked. She has never used smokeless tobacco. Estimated body mass index is 34.38 kg/(m^2) as calculated from the following: Height as of this encounter: 5' 2 (1.575 m). Weight as of this encounter: 188 lb (85.276 kg). Weight management plan: Discussed healthy diet and exercise guidelines and patient will follow up in12 months in clinic to re-evaluate. Counseling Resources: ATP IV Guidelines Pooled Cohorts Equation Calculator Breast Cancer Risk Calculator FRAX Risk Assessment ICSI Preventive Guidelines Dietary Guidelines for Americans, 2010 USDA's MyPlate ASA Prophylaxis Lung CA Screening Additional 10 minutes spent in discussion of postmenopausal bleeding, diabetes, anxiety/depression in addition to RHM. Vanda Borja MD [facility] [place] P OPERATOR documented in this encounter Nursing Notes Lori Weber - 05/03/2016 11:21 AM CST Chief Complaint Patient presents with ??? Physical Initial BP 122/78 mmHg Pulse 72 Temp(Src) 97.6 ??F (36.4 ??C) (Tympanic) Ht 5' 2 (1.575 m) Wt 188 lb (85.276 kg) BMI 34.38 kg/m2 LMP 10/30/2011 Estimated body mass index is 34.38 kg/(m^2) as calculated from the following: Height as of this encounter: 5' 2 (1.575 m). Weight as of this encounter: 188 lb (85.276 kg). BP completed using cuff size: regular P OPERATOR documented in this encounter Plan of Treatment Not on filedocumented as of this encounter Procedures Procedure Name Priority Date/Time Associated Diagnosis Comme nts HPV HIGH RISK TYPES Routine 05/03/2016 12:17 PM Cervical cance r Results for this DNA CERVICAL SCOOP OPERATOR screening procedure are i n the results section. PAP IMAGED THIN Routine 05/03/2016 12:00 AM Cervical cancer Re sults for this LAYER SCREEN SCOOP OPERATOR screening procedure are i n the results section. documented in this encounter Results US Pelvic Complete with Transvaginal (05/05/2016 2:41 PM SCOOP OPERATOR) Anatomical Region Laterality Modality Abdomen/Pelvis Ultrasound Specimen (Source) Anatomical Location Collection Method / Collectio n Time Received Time / Laterality Volume Impressions 05/05/2016 3:32 PM SCOOP OPERATOR IMPRESSION: 3.2 cm intramural fibroid. No endometrial thickening. Minimal free pelvic fluid is noted. Ovar ies are unremarkable and appear atrophic. BRIDGETTE LOZA MD Narrative 05/05/2016 3:32 PM SCOOP OPERATOR US PELVIC COMPLETE WITH TRANSVAGINAL 05/05/2016 2:41 [...] free pelvic fluid is present. Procedure Note Bridgette Loza MD - 05/05/2016Form atting of this [...] Ovar ies are unremarkable and appear atrophic. BRIDGETTE LOZA MD Vanda Borja MD IMG US ORDERABLES HPV High Risk Types DNA Cervical (05/03/2016 12:17 PM SCOOP OPERATOR) Component Value Ref Test Analysis Performed At [facility] Range Method Time Signature HPV 16 DNA Negative NEG [facility] HPV 18 DNA Negative NEG [facility] Other HR HPV Negative NEG [facility] Final This patient's sample is negative for HPV DNA. [place] Diagnosis (Note) OF MD METHODOLOGY: ??The Alaina kandy 4800 system uses automated extraction, MEDICAL simultaneous amplification of HPV (L1 region) and beta-globi n, [facility] followed by ??real time detection of fluorescent labeled H PV and beta [facility] globin using specific oligonucleotide probes . The test spec ifically identifies types HPV 16 DNA and HPV 18 DNA while concurrentl y detecting the rest of the high risk types (31, 33, 35, 39, 4 5, 51, 52, 56, 58, 59, 66 or 68). COMMENTS: ??This test is not intended for use as a screening device for women under age 30 with normal cervical cytology. ??Resu lts should be correlated with cytologic and histologic findings. Close clinical followup is recommended. This test was developed and its performance characteristics determined by the [facility]. It has not been cleared or approved by the FDA. The laboratory is regulated under CLIA as qualified to perform high-complexity testing. This test is used for clinical purp oses. It should not be regarded as investigational or for research. Specimen Cervical Cells [place] Description C16 [id number] OF [facility] Specimen Anatomical Collection Method Collection Time Receive d Time (Source) Location / / Volume Laterality Cervical Cells 05/03/2016 12:17 6 PM SCOOP OPERATOR 12:20 PM SCOOP OPERATOR Vanda Borja MD LAB - BLOOD ORDERABLES Performing Organization Address City/State/ZIP Code Phon e Number [facility] [address] Pap imaged thin layer screen with HPV - recommended age 30 - 65 years (select HPV order below) (05/03/2016 12:00 AM SCOOP OPERATOR) Component Value Ref Test Analysis Performed At [facility] Range Method Time Signature PAP NIL [place] Copath Report [place] Patient Name: MEGAN CHOI MR#: [id number] Specimen #: [id number] Collected: 05/03/2016 Received: 05/05/2016 Reported: 05/09/2016 08:26 Ordering Phy(s): VANDA BORJA SPECIMEN/STAIN PROCESS: Pap imaged thin layer prep screening (Surepath, FocalPoint w ith guided screening) ? Pap-Cyto x 1, HPV ordered x 1 SOURCE: Cervical, endocervical ---- Pap imaged thin layer prep screening (Surepath, FocalPoint with guided screening) SPECIMEN ADEQUACY: Satisfactory for evaluation. -Transformation zone component present. CYTOLOGIC INTERPRETATION: Negative for Intraepithelial Lesion or Malignancy Electronically signed out by: TARIQ Wick (ASCP) Processed and screened at [facility] CLINICAL HISTORY: LMP: 10/30/11 Post Menopausal, Previous normal pap Date of Last Pap: 10/06/14, Papanicolaou Test Limitations: ??Cervical cytology is a scre ening test with limited sensitivity; regular screening is critical for cancer prevention; Pap tests are primarily effective for the diagnosis/prevention of squamous cell carcinoma, not adenoca rcinomas or other cancers. TESTING LAB LOCATION: [address] ??[id number] COLLECTION SITE: Client: ??[facility] Location: [facility] (R) Specimen (Source) Anatomical Collection Method Collection Time Re ceived Time Location / / Volume Laterality Cytologic 05/03/2016 05/05/2016 10:2 2 material AM SCOOP OPERATOR (specimen) Vanda Borja MD LAB - OPTIME CLINICAL SPECIM EN Performing Organization Address City/State/ZIP Code Phon e Number [place] documented in this encounter Visit Diagnoses Diagnosis Encounter for routine adult health exami nation with abnormal findings - Primary Postmenopausal bleeding Moderate episode of recurrent major depr essive disorder (H) Type 2 diabetes mellitus without complic ation, without long-term current use of insulin (H) Fibromyalgia Mylagia and myositis, unspecified Hyperlipidemia LDL goal <100 Other and unspecified hyperlipidemia Gastroesophageal reflux disease without esophagitis Esophageal reflux Anxiety Anxiety state, unspecified Non morbid obesity, unspecified obesity type Cervical cancer screening Screening for malignant neoplasm of the cervix Dysfunction of Eustachian tube, bilatera l Postmenopausal bleeding documented in this encounter Additional Health Concerns Assessment Noted Time PHQ-9 Depression Total Score: 11 05/02/2016 7:09 AM CS T documented as of this encounter Care Teams Upsetting Machine Operator Relationship Specialty Start Date End Date Vanda Borja MD PCP - General Internal Medicine 04/08/15 01/08/19 [id number] [address] [place], [place] [id number] documented as of this encounter
--- OUTSIDE RECORDS SUMMARY | 2022-01-17 22:14 | XMS_ITS | Encounter Summary ---
:1965 Author Organization [facility] Address [address] [place] [address] Care Team Providers Name Role Phone Selma Good APRN OBIEE OBIA SOLUTION ARCHITECT Primary Care Provider Reason for Visit Reason Comments Neurologic Problem Neck/low back pain Encounter Details Date Type Department Care Team Description 12/29/2014 Office Visit [facility] Rosalia Main Status p ost lumbar spinal fusion (Primary Dx); Neurosurgery Clinic [place]AN [place] CN P Status post cervical spinal fusion [facility] [address] [place] [address] [address] [place] [address] [address] [place], [place] [id number] [phone] Social History Tobacco Use Types Packs/Day Years [...] How often do you attend cheondoism or yazidism Patient refused 08/08/2019 services? Do [...] Sign Reading Time Taken Comments Blood Pressure 114/81 12/29/2014 10:26 AM CDT Pulse 109 12/29/2014 10:26 AM CDT Temperature - - Respiratory Rate - - Oxygen Saturation - - Inhaled Oxygen Concentration - - Weight 73.9 kg (163 lb) 12/29/2014 10:26 AM CDT Height 157.5 cm (5' 2) 12/29/2014 10:26 AM CDT Body Mass Index 29.81 12/29/2014 10:26 AM CDT documented in this encounter Patient Instructions Patient InstructionsSchRosalia rock APRN CNP - 12/29/2014 10:[address] scan of low back and neck we will contact you with the results 2. Please contact the clinic with any further questions documented in this encounter Progress Notes Rosalia Main APRN CNP - 12/29/2014 10:[address] Raoul Danielson [facility] Neurosurgery Clinic Visit The following is a financial counselor of a shared visit between Dr. Raoul Danielson and myself, Rosalia Lauren CNP CC: Pain in my neck Primary care Provider: Selma Good Consulting provider: Referred by PCP HPI: Megan Choi is a 49 year old female with chronic neck pain and stiffness. She states that in 2000 she had a C5-7 fusion for cervical radicular pain into her right arm. She states that the pain is bad in her neck but denies any radiation into her arms. She denies any swallowing difficulties. She denies any weakness in her hands or arms. She denies PT or injections for this pain. She had injections prior to the fusion without nay pain relief. She also states that she is having low back pain. She states that she had lumbar surgery in the pastbut unsure of what levels. She states that now her pain is in her low back and into her left leg allover and into the calf. She denies any falls. She reports low back and leg spasms as well. She denies any incontinence of her bowel or bladder. She also thinks she had a left SI joint fusion in the past which was not helpful. Pain at its worst 10 Pain right now: 4 Past Medical History Diagnosis Date ??? Dvt femoral (deep venous thrombosis) 04/17 post surgical, stopped coumadin 01/16 ??? Diabetes mellitus Past Medical History reviewed with patient during visit. Past Surgical History Procedure Laterality Date ??? C spinal fusion,ant,ea adnl level 2004 L5, S1, Repeated in 2005 ??? C spinal fusion,ant,ea adnl level 2006 SI joints ??? C spinal fusion,ant,ea adnl level 2000 C5-C7 fused ??? section Past Surgical History reviewed with patient during visit. Current Outpatient Prescriptions Medication ??? loratadine-pseudoePHEDrine (CLARITIN-D 24-HOUR) 10-240 MG per tablet ??? simvastatin (ZOCOR) 20 MG tablet ??? metFORMIN (GLUCOPHAGE) 500 MG tablet ??? omeprazole (PRILOSEC) 20 MG capsule ??? blood glucose monitoring (ONE TOUCH ULTRA 2) meter device kit ??? topiramate (TOPAMAX) 50 MG tablet ??? DULoxetine (CYMBALTA) 30 MG capsule ??? citalopram (CELEXA) 20 MG tablet ??? fluticasone (FLONASE) 50 MCG/ACT nasal spray ??? blood glucose (ONE TOUCH ULTRA) test strip ??? blood glucose monitoring (ONE TOUCH DELICA) lancets ??? amitriptyline (ELAVIL) 10 MG tablet ??? blood glucose monitoring (ACCU-CHEK MULTICLIX) lancets ??? JAY/ARB NOT PRESCRIBED, INTENTIONAL, ??? STATIN NOT PRESCRIBED, INTENTIONAL, ??? blood glucose (ACCU-CHEK JANICE) test strip ??? ASPIRIN PO No current facility-administered medications for this visit. Allergies Allergen Reactions ??? Erythromycin History Social History ??? Marital Status: Spouse Name: N/A Number of Children: N/A ??? 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 Smoking status: Never Smoker ??? Smokeless tobacco: Never Used ??? Alcohol Use: Yes Comment: Rare ??? Drug Use: No ??? Sexual Activity: Partners: Male Control/ Protection: Surgical Comment: Tubal Other Topics Concern ??? Parent/Sibling W/ Cabg, Mi Or Angioplasty Before 65f 55m? No Social History Narrative Family History Problem Relation Age of Onset ??? Cardiovascular Mother SC age 72 ??? Cardiovascular Father SC early 40s, subsequent bipass ??? Diabetes Mother Type II ??? Hypertension Mother ??? Lipids Mother ??? Arthritis Mother OA ??? Hypertension Father ??? Diabetes Father ??? Lipids Father ??? Lipids Sister ??? Lipids Sister ??? Lipids Brother ??? Hypertension Sister ??? Hypertension Sister ??? Hypertension Brother ??? Diabetes Sister ??? Diabetes Sister ??? Diabetes Brother ??? Diabetes Maternal Grandfather ??? Diabetes Paternal Grandmother ??? Diabetes Paternal Grandfather ??? Diabetes Maternal Grandmother ??? Hypertension Maternal Grandmother ??? Hypertension Maternal Grandfather ??? Hypertension Paternal Grandmother ??? Hypertension Paternal Grandfather ??? Cardiovascular Paternal Grandmother ??? Cardiovascular Paternal Grandfather ??? Lipids Maternal Grandmother ??? Lipids Maternal Grandfather ??? Lipids Paternal Grandmother ??? Lipids Paternal Grandfather ??? Kidney Disease Mother 70 ??? Kidney Disease Brother 55 Review Of Systems Skin: negative Eyes: negative Ears/Nose/Throat: negative Respiratory: No shortness of breath, dyspnea on exertion, cough, or hemoptysis Cardiovascular: negative Gastrointestinal: negative Genitourinary: negative Musculoskeletal: neck pain Neurologic: negative Psychiatric: negative Hematologic/Lymphatic/Immunologic: negative Endocrine: diabetes ROS: 10 point ROS neg other than the symptoms noted above in the HPI. Vital Signs: BP 114/81 mmHg Pulse 109 Ht 5' 2 (1.575 m) Wt 163 lb (73.936 kg) BMI 29.81 kg/m2 Examination: Constitutional: Alert, well nourished, NAD. HEENT: Normocephalic, atraumatic. Pulm: Without shortness of breath or audible adventitious respiratory sounds. CV: No pitting edema of BLE. Brisk capillary refill, CMS intact. Neurological: Awake Alert Oriented x 3 Speech clear Cranial nerves II - XII intact PERRL EOMI Face symmetric Tongue midline Motor exam Shoulder Abduction: Right: 10/13 Left: 10/13 Biceps: Right: 10/13 Left: 10/13 Triceps: Right: 10/13 Left: 10/13 Wrist Extensors: Right: 10/13 Left: 10/13 Wrist Flexors: Right: 10/13 Left: 10/13 Intrinsics: Right: 10/13 Left: 10/13 Hip Flexor: Right: 10/13 Left: 10/13 Hip Adductor: Right: 10/13 Left: 10/13 Hip Abductor: Right: 10/13 Left: 10/13 Gastroc Soleus: Right: 10/13 Left: 10/13 Tib/Ant: Right: 10/13 Left: 10/13 EHL: Right: 5/5 Left: 5/5 Sensation normal to bilateral upper and lower extremities Gait: Able to stand from a seated position. Normal non-antalgic, non-myelopathic gait. Able to heel/toe walk without loss of balance Cervical examination reveals good range of motion. No tenderness to palpation of the cervical spine or paraspinous muscles bilaterally. Restricted and painful lumbar ROM. Pain with palpation to the lumbar spine and bilateral SI joints. Imaging: None Assessment/Plan: Megan Choi is a 49 year old female with chronic neck and low back pain post spine surgery. She presents without scans today. She states that she can not have PT due to insurance issues. We discussed obtaining a CT scan of her cervical and lumbar spines. We will contact her with the results. The pt agreed to the POC. Plan: 1. CT scan of low back and neck we will contact you with the results 2. Please contact the clinic with any further questions Patient comes in today for findings of low back and neck pain. Today I spent 45 minutes with him of which 30 was spent reviewing conservative management and plan of care. Rosalia Main CNP [facility] [place] [address] Pager [phone] Anna Mayberry - 12/29/2014 10:29 AM CDT Megan Choi is a 49 year old female who presents for: Chief Complaint Patient presents with ??? Neurologic Problem Neck/low back pain Initial Vitals: BP 114/81 mmHg Pulse 109 Ht 5' 2 (1.575 m) Wt 163 lb (73.936 kg) BMI 29.81 kg/m2 Estimated body mass index is 29.81 kg/(m^2) as calculated from the following: Height as of this encounter: 5' 2 (1.575 m). Weight as of this encounter: 163 lb (73.936 kg).. Body surface area is 1.80 meters squared. BP completed using cuff size: regular Moderate Pain (4) Do you feel safe in your environment? Yes Do you need any refills today? No Nursing Comments: low back pain left buttocks/thigh. Neck pain 5minutes nursing intake time Anna Mayberry Discharge plan: Patient will have CT scabs and Rosalia Main CNP will call with results. 3minutes nursing discharge time Anna Mayberry CMA signature documented in this encounter Plan of Treatment Not on filedocumented as of this encounter Results CT Cervical Spine w/o Contrast (01/08/2015 12:38 PM CDT) Anatomical Region Laterality Modality Spine, SUBRAD CT NEURO, SUBRAD CT NEURO, P CT SPINE Computed Tomography Specimen (Source) Anatomical Location Collection Method / Collectio n Time Received Time / Laterality Volume Impressions 01/08/2015 1:17 PM CDT IMPRESSION: 1. Fusion hardware in place anteriorly C 5-C7 with solid anterior fusion. 2. Degenerative changes as described. 3. Small central disc protrusions at C2- C3 and C4-C5 with prominent annular bulge at C3-C4. RUPERTO SWAN MD Narrative 01/08/2015 1:[address] CERVICAL SPINE WITHOUT CONTRAST ??01/08/2015 12:38 PM HISTORY: ??Cervical pain. Arthrodesis st atus. COMPARISON: None. TECHNIQUE: Routine CT cervical spine thr ough T1. FINDINGS: Prior anterior fusion with norma shirley and pedicle screws from C5-C7 and bone plugs or artificial disc material at C5-C6 and C6-C7 interspace levels. The fusion appears so lid. Alignment is normal through T1. No paraspinous soft tissue a bnormality. Findings by level as follows: C2-C3: Minimal central disc protrusion s een on series 6 image 33. No lateral stenosis. C3-C4: Mild ventral ridging and prominen t annular bulge. This results in mild central stenosis. No significant foraminal stenosis. C4-C5: Small broad-based central disc pr otrusion resulting in mild central stenosis. No significant foramin al stenosis. C5-C6: Anterior fusion as described. No central or lateral stenosis. C6-C7: Anterior fusion. Mild ventral rid ging but no significant central or lateral stenosis. C7-T1: Negative. Procedure Note Ruperto Swan MD - 01/08/2015Forma tting of this note might be different from the original. CT CERVICAL SPINE WITHOUT CONTRAST 2014 12:38 PM HISTORY: Cervical pain. Arthrodesis stat us. COMPARISON: None. TECHNIQUE: Routine CT cervical spine thr ough T1. FINDINGS: Prior anterior fusion with norma shirley and pedicle screws from C5-C7 and bone plugs or artificial disc material at C5-C6 and C6-C7 interspace levels. The fusion appears so lid. Alignment is normal through T1. No paraspinous soft tissue a bnormality. Findings by level as follows: C2-C3: Minimal central disc protrusion s een on series 6 image 33. No lateral stenosis. C3-C4: Mild ventral ridging and prominen t annular bulge. This results in mild central stenosis. No significant foraminal stenosis. C4-C5: Small broad-based central disc pr otrusion resulting in mild central stenosis. No significant foramin al stenosis. C5-C6: Anterior fusion as described. No central or lateral stenosis. C6-C7: Anterior fusion. Mild ventral rid ging but no significant central or lateral stenosis. C7-T1: Negative. IMPRESSION IMPRESSION: 1. Fusion hardware in place anteriorly C 5-C7 with solid anterior fusion. 2. Degenerative changes as described. 3. Small central disc protrusions at C2- C3 and C4-C5 with prominent annular bulge at C3-C4. RUPERTO SWAN MD Rosalia Main CLEANER AND TRIMMER OBIEE OBIA SOLUTION ARCHITECT IMG CT ORDERABLES CT Lumbar Spine w/o Contrast (01/08/2015 12:36 PM CDT) Anatomical Region Laterality Modality Spine, SUBRAD CT MSK, [facility] CT SPINE Compu jayne Tomography Specimen (Source) Anatomical Location Collection Method / Collectio n Time Received Time / Laterality Volume Impressions 01/08/2015 12:58 PM CDT IMPRESSION: 1. Solid-appearing anterior/posterior fu radha at L5-S1. Small calcification or ossification is noted i n the left lateral recess at L5-S1 of uncertain significance in the s etting of a solid anterior/posterior fusion. There is no a pparent osseous central or foraminal stenosis. 2. Three metallic threaded cages are not ed in the fibrous portion of the left sacroiliac joint. There is prob able graft material within the cages which could solidly fuse the joint . However, outside of the cages, there is no definitive evidence o f solid arthrodesis across the left sacroiliac joint. ABRAHAM BAEZ MD Narrative 01/08/2015 12:[address] LUMBAR SPINE WITHOUT CONTRAST 01/08/2015 12:36 PM HISTORY: Post lumbar fusion, arthrodesis status. FINDINGS: There are five nonrib-bearing or lumbar-type vertebra. Anterior and posterior fusion is noted a t L5-S1 with anterior interbody graft which appears to be inco rporated with solid anterior fusion. There are also bilateral L5 and S1 pedicle screws which appear to be well positioned without cutting in to the central canal or neural foramen. Posterolateral bone graft is in corporated and there is solid fusion across the L5-S1 apophyseal joint s. Calcification or ossification is noted within the left la teral recess at the L5-S1 disc level of indeterminate significance in t he setting of solid anterior/posterior fusion. No osseous ce ntral or foraminal stenosis is noted. Also noted are three threaded metallic c ages within the fibrous portion of the left sacroiliac joint. He terotopic ossification is noted posterior to the cages within the paraspinous musculature. Graft is presumably present within the cages w hich could solidly fuse the left sacroiliac joint. However, outside of the cages, there is no definitive evidence of solid fusion acro ss the left sacroiliac joint. Above L5-S1, lumbar disc heights are wel l maintained. There is no apparent osseous central or foraminal st enosis. Scattered aortic calcification is noted. Procedure Note Sridevi Baez MD - 01/08/2015Formatt ing of this note might be different from the original. CT LUMBAR SPINE WITHOUT CONTRAST 01/09/20 12:36 PM HISTORY: Post lumbar fusion, arthrodesis status. FINDINGS: There are five nonrib-bearing or lumbar-type vertebra. Anterior and posterior fusion is noted a t L5-S1 with anterior interbody graft which appears to be inco rporated with solid anterior fusion. There are also bilateral L5 and S1 pedicle screws which appear to be well positioned without cutting in to the central canal or neural foramen. Posterolateral bone graft is in corporated and there is solid fusion across the L5-S1 apophyseal joint s. Calcification or ossification is noted within the left la teral recess at the L5-S1 disc level of indeterminate significance in t he setting of solid anterior/posterior fusion. No osseous ce ntral or foraminal stenosis is noted. Also noted are three threaded metallic c ages within the fibrous portion of the left sacroiliac joint. He terotopic ossification is noted posterior to the cages within the paraspinous musculature. Graft is presumably present within the cages w hich could solidly fuse the left sacroiliac joint. However, outside of the cages, there is no definitive evidence of solid fusion acro ss the left sacroiliac joint. Above L5-S1, lumbar disc heights are wel l maintained. There is no apparent osseous central or foraminal st enosis. Scattered aortic calcification is noted. IMPRESSION IMPRESSION: 1. Solid-appearing anterior/posterior fu radha at L5-S1. Small calcification or ossification is noted i n the left lateral recess at L5-S1 of uncertain significance in the s etting of a solid anterior/posterior fusion. There is no a pparent osseous central or foraminal stenosis. 2. Three metallic threaded cages are not ed in the fibrous portion of the left sacroiliac joint. There is prob able graft material within the cages which could solidly fuse the joint . However, outside of the cages, there is no definitive evidence o f solid arthrodesis across the left sacroiliac joint. ABRAHAM BAEZ MD Rosalia Main CLEANER AND TRIMMER OBIEE [employer]IA SOLUTION ARCHITECT IMG CT ORDERABLES documented in this encounter Visit Diagnoses Diagnosis Status post lumbar spinal fusion - Prima ry Arthrodesis status Status post cervical spinal fusion Arthrodesis status Status post lumbar spinal fusion Arthrodesis status Status post cervical spinal fusion Arthrodesis status documented in this encounter Care Teams Step Down Nurse Relationship Specialty Start Date End Date Danilo-Selma Mccoy APRN OBIEE OBIA SOLUTION ARCHITECT PCP - General 04/09/08 04/07/15 [id number] [facility] [place] [id number] documented as of this encounter
--- OUTSIDE RECORDS SUMMARY | 2022-01-17 22:14 | XMS_ITS | Encounter Summary ---
:1965 Author Organization [facility] Address [address] [place] [address] Care Team Providers Name Role Phone Selma Good APRN BI SPECIALIST Primary Care Provider [phone] Encounter Details Date Type Department Care Team Description 01/12/[address] [facility] Teagan Solares DDD (degenerative Clinic [facility] disc disease), Pain Management [facility] lumbar [address] [facility] [address] [place] [address] [place], [place] [phone] (Work) [phone] Social History Tobacco Use Types Packs/Day Years [...] How often do you attend druze or congregational Patient refused 08/08/2019 services? Do [...] Priority Date/Time Associated Diagnosis Comme nts XR EPIDURAL Routine 01/12/2015 9:12 AM DDD (degenerative Resu lts for this INJECTION CAUDAL CDT disc disease), procedure are in INCL IMAGING lumbar the results section. documented in this encounter Results XR Epidural Injection Caudal (01/12/2015 9:12 AM CDT) Specimen (Source) Anatomical Location Collection Method / Collectio n Time Received Time / Laterality Volume Narrative Lashae Alexis - 01/12/2015 9:18 A M CDT This exam was marked as non-reportable because it will not be read by a radiologist or a [facility] non-radiologis t provider. Procedure Note Lashae Alexis - 01/12/2015Formatt ing of this note might be different from the original. This exam was marked as non-reportable b ecause it will not be read by a radiologist or a [facility] non-radiologist provider. Teagan Solares DO IMG DIAGNOSTIC IMAGING ORDER ILDEFONSO documented in this encounter Visit Diagnoses Diagnosis DDD (degenerative disc disease), lumbar Degeneration of lumbar or lumbosacral in tervertebral disc documented in this encounter Administered Medications Inactive Administered Medications - up to 3 most recent administrations Medication Order MAR Action Action Date Dose Rate Site iohexol (OMNIPAQUE) 300 mg/mL Given by Other 01/12/2015 9:17 AM CDT 1 mL injection 10 mL 10 mL, EPIDURAL, ONCE, On Sun01/12/15 at 0830, For 1 dose documented in this encounter Care Teams Bridge Worker Apprentice Relationship Specialty Start Date End Date Selma Good, CHIEF SCIENTIFIC OFFICER BI SPECIALIST PCP - General 04/09/08 04/07/[address] [place], [place] [address] documented as of this encounter
--- OUTSIDE RECORDS SUMMARY | 2022-01-17 22:14 | XMS_ITS | Encounter Summary ---
:1965 Author Organization [facility] Address [address] [place] [address] Care Team Providers Name Role Phone Vanda Guerrero MD Primary Care Provider [phone] Reason for Visit Reason Onset Date Comments Refill Request 08/20/2015 tiZANidine (ZANAFLEX ) 4 MG tablet Encounter Details Date Type Department Care Team Description 08/20/2015 Refill [facility] Vanda Lal, Refill Request [phone] Priscilla Bass MD (tiZANidine (ZANAFLEX) [place] [id number] [place] [address] 4 MG tablet) [phone] [facility] [place] [id number] (Wo rk) Social History Tobacco Use Types [...] How often do you attend evangelical or denominational Patient refused 08/08/2019 services? Do you belong to any clubs or organizations such as No 08/08/2019 evangelical groups, unions, fraPhysicians Endoscopy or athletic groups, or school groups? How [...] this encounter Miscellaneous Notes Telephone Encounter - Kleber Del Rio - 08/20/2015 3:27 PM CST tiZANidine (ZANAFLEX) 4 MG tablet Last Written Prescription Date: 04/08/15 Last Fill Quantity: 90, # refills: 5 Last Office Visit with [facility] or Health prescribing provider: 04/08/15 Future Office visit: Routing refill request to provider for review/approval because: Drug not on the [facility] or Health refill protocol or controlled substance EL MACHINIST documented in this encounter Plan of Treatment Not on filedocumented as of this encounter Visit Diagnoses Diagnosis Cervicalgia - Primary History of fusion of cervical spine Arthrodesis status History of lumbar fusion documented in this encounter Additional Health Concerns Assessment Noted Time PHQ-9 Depression Total Score: 13 07/09/2015 7:49 AM CS T documented as of this encounter Care Teams Clinical Sociologist Relationship Specialty Start Date End Date Vanda Guerrero MD PCP - General Internal Medicine 04/08/15 01/08/19 [address] [address] [address] [place], [place] [address] documented as of this encounter
--- OUTSIDE RECORDS SUMMARY | 2022-01-17 22:14 | XMS_ITS | Encounter Summary ---
:1965 Author Organization [place] Address [facility] [address] Care Team Providers Name Role Phone Selma Good APRN FICTION WRITER Primary Care Provider [phone] Reason for Visit Reason Onset Date Comments Referral 10/21/2014 New Dual Encounter Details Date Type Department Care Team Description 10/21/2014 [facility] Pain Pain Management Re ferral (New Dual ) Management Center Program, [place] [address] [place] [address] [address] [place] [address] Social History Tobacco Use Types Packs/Day Years [...] How often do you attend sabianism or oriental orthodox Patient refused 08/08/2019 services? [...] this encounter Miscellaneous Notes Telephone Encounter - Halie Siddiqui - 10/27/2014 12:57 PM CDT Images from the original note were not included. Pain Management Center Referral 1. Confirmed address with patient? Yes 2. Confirmed phone number with patient? Yes 3. Confirmed referring provider? Yes 4. Is the PCP the same as the referring provider? Yes 5. Has the patient been to any previous pain clinics? No (If yes, send STEVEN with welcome letter) 6. Which insurance are we to bill for this appointment? [employer] 7. Informed pt of cancellation (48 hour) policy? Yes REGARDING OPIOID MEDICATIONS: We will always address appropriateness of opioid pain medications, butwe generally will not automatically take on a prescribing role. When we do take on prescribing of opioids for chronic pain, it is in collaboration with the referring physician for an intermediate period of time (months), with an expectation that the primary physician or provider will assume the prescribing role if medications are effective at stable doses with demonstrated compliance. Therefore, please do not assume that your prescribing responsibilities end on the day of pain clinic consultation. 7. Informed pt of prescribing policy? Yes 8. Referring Provider: Dr. Good Telephone Encounter - Halie Siddiqui - 10/21/2014 9:01 AM CDT Called to schedule new dual with patient. Halie Siddiqui [employer] [facility] documented in this encounter Plan of Treatment Not on filedocumented as of this encounter Visit Diagnoses Not on filedocumented in this encounter Care Teams Inspector Quality Assurance Relationship Specialty Start Date End Date Selma Good APRN FICTION WRITER PCP - General 04/09/08 04/07/15 [address] [facility] [place] [id number] documented as of this encounter
--- OUTSIDE RECORDS SUMMARY | 2022-01-17 22:14 | XMS_ITS | Encounter Summary ---
:1965 Author Organization [place] Address [address] [place] [address] Care Team Providers Name Role Phone Vanda Guerrero MD Primary Care Provider [phone] Reason for Visit Reason Onset Date Comments Refill Request 05/11/2015 SIMVASTATIN 20MG Encounter Details Date Type Department Care Team Description 05/11/2015 Refill [facility] Vanda Lal, Refill Request [address] [facility] Kali SALDANA (SIMVASTATIN 20MG) [place] [phone] [address] [facility] [phone] [facility] [place] [address] (Wo rk) Social [...] How often do you attend congregation or holiness Patient refused 08/08/2019 services? Do [...] this encounter Miscellaneous Notes Telephone Encounter - Shante Joya RN - 05/11/2015 12:01 PM INTERNET E COMMERCE SPECIALIST Prescription approved per [facility] Refill Protocol. RERE Franco Triage Nurse RNET E COMMERCE SPECIALIST Telephone Encounter - Marisa Matthew - 05/11/2015 7:56 AM CST SIMVASTATIN 20MG Last Written Prescription Date: 10/06/2014 Last Fill Quantity: 90, # refills: 1 Last Office Visit with [facility] primary care provider: 04/08/2015 CHOL 153 08/10/2014 HDL 61 08/10/2014 LDL 76 08/10/2014 TRIG 79 08/10/2014 CHOLHDLRATIO 2.5 08/10/2014 RNET E COMMERCE SPECIALIST documented in this encounter Plan of Treatment Not on filedocumented as of this encounter Visit Diagnoses Diagnosis Hyperlipidemia LDL goal <100 - Primary Other and unspecified hyperlipidemia documented in this encounter Care Teams Library Sales Consultant Relationship Specialty Start Date End Date Vanda Guerrero MD PCP - General Internal Medicine 04/08/15 01/08/19 [address] [facility] [place] [address] documented as of this encounter
--- OUTSIDE RECORDS SUMMARY | 2022-01-17 22:14 | XMS_ITS | Encounter Summary ---
:1965 Author Organization [place] Address [address] [place] [address] Care Team Providers Name Role Phone Selma Good APRN NETSUITE CONSULTANT Primary Care Provider [phone] Encounter Details Date Type Department Care Team Description 01/11/2015 Orders Only [facility] Eag an Routine general medical [address] [facility] [place] [address] care facility [phone] Social History Tobacco Use Types Packs/Day Years [...] How often do you attend congregational or pentecostalism Patient refused 08/08/2019 services? Do [...] Associated Diagnosis Comme nts FECAL COLORECTAL Routine 01/11/2015 9:00 AM Routine general Re sults for this CANCER SCREEN FIT CDT medical examination pro cedure are in at a health care the results facility section. documented in this encounter Results Fecal colorectal cancer screen FIT (01/11/2015 9:00 AM CDT) Analysis Performed At Patho logist Time Signature Occult Blood Negative NEG [facility] FIT [facility] Specimen Anatomical Collection Method Collection Time Receive d Time (Source) Location / / Volume Laterality Stool specimen 01/11/2015 9:00 AM 015 (specimen) CDT 10:42 AM CDT Selma Good APRN NETSUITE CONSULTANT LAB - STOOLS ORDERABLES Performing Organization Address City/State/ZIP Code Phon e Number [facility] [address] [place] [address] [facility] documented in this encounter Visit Diagnoses Diagnosis Routine general medical examination at a health care facility documented in this encounter Care Teams Sales Representative Groceries Relationship Specialty Start Date End Date Danilo-Selma Mccoy, POWERHOUSE ATTENDANT NETSUITE CONSULTANT PCP - General 04/09/08 04/07/15 [address] [facility] [address] [place], [place] [address] documented as of this encounter
--- OUTSIDE RECORDS SUMMARY | 2022-01-17 22:14 | XMS_ITS | Encounter Summary ---
:1965 Author Organization [place] Address [facility] [place] [address] Care Team Providers Name Role Phone Selma Good APRN COLLAR SETTER OVERLOCK Primary Care Provider [phone] Reason for Visit (Routine) - Closed Specialty Diagnoses / Procedures Referred By Contact Refer red To Contact Radiology / Radiology. Diagnoses R#NA, BC, written order Sh Ct Scan Procedures CT LUMBAR SPINE WO [address] [place] [phone] Phone: Referral ID Status Reason Start Date Expiration Date Visits Requ ested Visits Authorized [id number] Closed 01/01/2015 01/01/2016 1 1 Encounter Details Date Type Department Care Team Description 01/08/2015 Hospital Encounter [facility] atus post lumbar [facility] [place] COLLAR SETTER OVERLOCK spinal fusion [address] [place] [phone] ORTHOPEDICS [phone] [place] [address] [place] [address] Social History Tobacco Use Types Packs/Day Years [...] How often do you attend islam or samaritan Patient refused 08/08/2019 services? Do you belong to any clubs or organizations such as No 08/08/2019 islam groups, Discrete Sports, fraBaifendian or athletic groups, or school groups? How [...] Refills Start Date End Date JAY/ARB NOT 1 each daily JAY & 0 04/29/2014 PRESCRIBED, ARB not prescribed INTENTIONAL,Indication due to not needed s: Type 2 diabetes, HbA1c goal < 7% (H), Hypertension goal BP (blood pressure) < 130/80 ASPIRIN PO Take 81 mg by mouth 0 daily. blood glucose 1 strip by In Vitro 100 strip 0 04/11/2014 (ACCU-CHEK JANICE) test route 2 times daily stripIndications: Type 2 diabetes, HbA1c goal < 7% (H) amitriptyline (ELAVIL) Start at 2 tab at 120 tablet 0 201301/12/2015 10 MG bedtime for 3 days, tabletIndications: then 3 tabs at Insomnia bedtime for 3 days, then 4 tabs at bedtime. Stay at 4 tabs at bedtime. blood glucose (ONE Use to test blood 100 strip 0 10/06/2014 09/19/2016 TOUCH ULTRA) test sugars 1 times daily stripIndications: Type or as directed. 2 diabetes, HbA1c goal < 7% (H) blood glucose Use to test blood 1 Box 11 05/05/20140 11/2020 monitoring (ACCU-CHEK sugar 2 times daily MULTICLIX) or as directed. lancetsIndications: Type 2 diabetes, HbA1c goal < 7% (H) blood glucose Use to test blood 1 Box 0 10/06/20142 01/2017 monitoring (ONE TOUCH sugars 1 times daily DELICA) or as directed. lancetsIndications: Type 2 diabetes, HbA1c goal < 7% (H) blood glucose Use to test blood 1 kit 0 10/06/20140 08/2016 monitoring (ONE TOUCH sugars 1 times daily ULTRA 2) meter device or as directed. kitIndications: Type 2 diabetes, HbA1c goal < 7% (H) citalopram (CELEXA) 20 Take 1 tablet (20 mg) 90 tablet 0 01/12/2015 MG tabletIndications: by mouth daily Major depressive disorder, recurrent (H), Anxiety DULoxetine (CYMBALTA) Take 1 capsule (30 180 capsule 0 10/0611/09/2015 30 MG mg) by mouth 2 times capsuleIndications: daily Fibromyalgia fluticasone (FLONASE) [place] 1-2 sprays into 3 Package 3 05/03/2016 50 MCG/ACT nasal both nostrils daily sprayIndications: OME (otitis media with effusion), left loratadine-pseudoePHED Take 1 tablet by 90 tablet 0 015 02/20/2016 rine (CLARITIN-D mouth daily 24-HOUR) 10-240 MG per tabletIndications: Seasonal allergic rhinitis metFORMIN (GLUCOPHAGE) Take 1 tablet (500 180 tablet 1 10/0606/08/2015 500 MG mg) by mouth 2 times tabletIndications: daily (with meals) Type 2 diabetes, HbA1c goal < 7% (H) omeprazole (PRILOSEC) Take 1 capsule (20 90 capsule 0 201412/23/2015 20 MG mg) by mouth daily capsuleIndications: GERD (gastroesophageal reflux disease) simvastatin (ZOCOR) 20 Take 1 tablet (20 mg) 90 tablet 1 05/11/2015 MG tabletIndications: by mouth At Bedtime Hyperlipidemia LDL goal <100 STATIN NOT PRESCRIBED, 1 each daily Statin 0 each 0 04/1104/08/2015 INTENTIONAL,Indication not prescribed s: Hyperlipidemia LDL intentionally due to goal <100 not needed topiramate (TOPAMAX) Take 3 tablets (150 270 tablet 0 201412/23/2015 50 MG mg) by mouth daily tabletIndications: Migraine headache documented as of this encounter Plan of Treatment Not on filedocumented as of this encounter Procedures Procedure Name Priority Date/Time Associated Diagnosis Comme nts CT LUMBAR SPINE W/O Routine 01/08/2015 12:36 PM Status post cole mbar Results for this CONTRAST CDT spinal fusion procedure are in the results section. documented in this encounter Results CT Lumbar Spine w/o Contrast (01/08/2015 12:36 PM CDT) Anatomical Region Laterality Modality Spine, SUBRAD CT MSK, [facility] CT SPINE Compu jayne Tomography Specimen (Source) [...] original. CT LUMBAR SPINE WITHOUT CONTRAST 01/09/20 15 12:36 PM HISTORY: Post lumbar fusion, arthrodesis [...] sacroiliac joint. ABRAHAM BAEZ MD Rosalia Main APRN COLLAR SETTER OVERLOCK IMG CT ORDERABLES documented in this encounter Visit Diagnoses Diagnosis Status post lumbar spinal fusion Arthrodesis status documented in this encounter Care Teams Canvas Baster Relationship Specialty Start Date End Date Danilo-Selma Mccoy APRN COLLAR SETTER OVERLOCK PCP - General 04/09/08 04/07/15 [address] [facility] [place] [address] documented as of this encounter
--- OUTSIDE RECORDS SUMMARY | 2022-01-17 22:14 | XMS_ITS | Encounter Summary ---
:1965 Author Organization [place] Address [address] [place] [address] Care Team Providers Name Role Phone Vanda Guerrero MD Primary Care Provider Reason for Visit Reason Onset Date Comments Refill Request 06/08/2015 METFORMIN HCL 500MG Encounter Details Date Type Department Care Team Description 06/08/2015 Refill [facility] Vanda Lal, Refill Request 1440 Priscilla Bass MD (METFORMIN HCL 500MG) [place] [phone] [address] [facility] [phone] [facility] [place] [address] (Wo rk) Social History [...] How often do you attend caodaism or hindu Patient refused 08/08/2019 services? Do [...] Notes Telephone Encounter - Abigail Burciaga - 06/10/2015 11:53 AM CST Prescription approved per [facility] Refill Protocol. Abigail Burciaga RN ER WORKER Telephone Encounter - Eri Middleton - 06/08/2015 4:46 PM CST METFORMIN HCL 500MG Last Written Prescription Date: 10/06/2014 Last Fill Quantity: 180, # refills: 1 Last Office Visit with [facility] primary care provider: 04/08/2015 MICROL <5 08/10/2014 MICROALBUMIN * 08/10/2014 Value: Unable to calculate due to low value Effective 01/07/2014, the reference range for this assay has changed to reflect new instrumentation/methodology. CREATININE Date Value Ref Range Status 10/06/2014 0.76 0.52 - 1.04 mg/dL Final ] CHOL 153 08/10/2014 HDL 61 08/10/2014 LDL 76 08/10/2014 TRIG 79 08/10/2014 CHOLHDLRATIO 2.5 08/10/2014 AST 20 10/27/2013 ALT 24 10/27/2013 BP Readings from Last 3 Encounters: 04/08/15 116/74 01/26/15 112/70 01/12/15 109/70 A1C 6.0 04/08/2015 A1C 5.8 10/06/2014 A1C 5.9 03/25/2014 A1C 6.0 10/27/2013 A1C 5.6 05/30/2013 POTASSIUM Date Value Ref Range Status 10/27/2013 3.8 3.4 - 5.3 mmol/L Final ER WORKER documented in this encounter Plan of Treatment Not on filedocumented as of this encounter Visit Diagnoses Diagnosis Type 2 diabetes mellitus without complic ation - Primary documented in this encounter Care Teams Can Vacuum Tester Relationship Specialty Start Date End Date Vanda Guerrero MD PCP - General Internal Medicine 04/08/15 01/08/19 17[address] [facility] [place] [address] documented as of this encounter
--- OUTSIDE RECORDS SUMMARY | 2022-01-17 22:14 | XMS_ITS | Encounter Summary ---
:1965 Author Organization [place] Address [address] [place] [address] Care Team Providers Name Role Phone Selma Good APRN FISHER Primary Care Provider [phone] Reason for Visit Reason Comments Pain caudal TRACE Encounter Details Date Type Department Care Team Description 01/12/2015 Radiology [facility] Teagan Solares Lumbosacra l spondylosis without myelopathy (Primary Dx); Injection Office Pain Management DO Noreen Lumbar radiculopathy Visit [address] [facility] [address] [place] [address] [place], [place] [phone] [address] (Work) [phone] Social History Tobacco Use Types Packs/Day Years [...] How often do you attend confucianist or zoroastrian Patient refused 08/08/2019 services? Do you belong [...] Sign Reading Time Taken Comments Blood Pressure 109/70 01/12/2015 9:17 AM CDT Pulse 79 01/12/2015 9:17 AM CDT Temperature - - Respiratory Rate - - Oxygen Saturation 98% 01/12/2015 9:17 AM CDT Inhaled Oxygen Concentration - - Weight - - Height - - Body Mass Index - - documented in this encounter Patient Instructions Patient InstructionsShala Santana RN - 01/12/2015 8:40 AM CDT [facility] Procedure Discharge Instructions Nurse line: [phone] Appt line: [phone] Teagan Solares You had an caudal Epidural Steroid Injection Meds used: Lidocaine (local anesthetic) /dexamethasone (steroid) /omnipaque (contrast dye). ??? You may resume your normal diet ??? Avoid strenuous activity for the first 24 hours ??? Be cautious with walking as numbness and/or weakness in the lower extremities up to 6-8 hours may occur due to effect of local anesthetic ??? Do not drive for 6 hours. ??? If you received steroid injection, it may take several days for the steroid to start working andyou may see more effect from the procedure after 10-14 days ??? You may resume your regular activities after 24 hours ??? You may resume your regular medications after the procedure ??? If you have diabetes, check your blood sugar more frequently than usual as your blood sugar may be higher than normal for 10-14 days following steroid injection. Contact your doctor who manages your diabetes if your blood sugar is higher than usual ??? You may shower, however no swimming or tub baths or hot tubs for 24 hours following your procedure ??? Mild to moderate increase in pain for one day or several days following the injection is not uncommon ??? You may use ice packs 10-15 minutes three to four times a day at the injection site for comfort ??? You may use anti-inflammatory medications (such as Ibuprofen or Aleve or Advil) or Tylenol for pain control if necessary If you experience any of the following, call the pain center nursing line during work hours at [phone] or incident response coordinator physician after hours at [phone]: -Fever over 100 degree F -Swelling, bleeding, redness, drainage, warmth at the injection site -Progressive weakness or numbness on your legs or arms -Loss of bowel or bladder function -Unusual headache that is not relieved by Tylenol -Unusual new onset of pain that is not improving documented in this encounter Progress Notes Teagan Solares DO - 01/12/2015 9:20 AM CDT [facility] - Procedure Note Date of Service: 01/12/15 Procedure performed: caudal epidural steroid injection with fluoroscopic guidance Diagnosis: Lumbar spondylosis; Lumbar radiculitis/radiculopathy Fertilizer Processing Supervisor: Teagan Solares DO Anesthesia: none Indications: Megan Choi is a 49 year old female who is seen at the request of Rosalia Main APRN CNP for a caudal epidural steroid injection. The patient describes pain that radiates across the low back, anterior left thigh and posterior left buttocks and thigh. The patient has been exhibiting symptoms consistent with lumbar intraspinal inflammation and radiculopathy. Symptoms have been persistent, disabling, and intermittently severe. The patient reports minimal improvement with conservative treatment, including previous epidural steroid injections prior to surgeries. She has a history of a L5-S1 fusion and left sacroiliac (SI) joint fusion. CT was done on 01/08/15 which showed IMPRESSION: 1. Solid-appearing anterior/posterior fusion at L5-S1. Small calcification or ossification is noted in the left lateral recess at L5-S1 of uncertain significance in the setting of a solid anterior/posterior fusion. There is no apparent osseous central or foraminal stenosis. 2. Three metallic threaded cages are noted in the fibrous portion of the left sacroiliac joint. There is probable graft material within the cages which could solidly fuse the joint. However, outside of the cages, there is no definitive evidence of solid arthrodesis across the left sacroiliac joint. Allergies: Allergies Allergen Reactions ??? Erythromycin Vitals: BP 109/70 mmHg Pulse 79 SpO2 98% Review of Systems: The patient denies recent [...] prepped and draped in sterile fashion. The sacral hiatus and cornua were palpated. Under lateral fluoroscopic guidance sacral hiatus was identified. A total of 4.5 mL of Lidocaine 1% with 0.5 mL 8.4% sodium bicarbonate was used to anesthetize the skin and the needle track at a skin entry site. A 22 gauge 5 inch spinal needle was advanced through the sacral hiatus using intermittent fluoroscopy. The needle angle was decreased to allow entrance into the sacral canal and epidural space. This was verified in both the AP and lateral view for correct alignment. The position was then inspected from anteroposterior and lateral views, and the needle adjusted appropriately. After negative aspiration for heme and CSF, a total of 1.5 mL of Omnipaque-300 was injected using static and continuous fluoroscopy confirming appropriate position, into the epidural space, with no intravascular or intrathecal uptake. 2 mL of 1% lidocaine, 2 mL of preservative free saline, with 80 mg of triamcinolone was injected. The needle was removed. Hemostasis was achieved, the area was cleaned, and bandaids were placed when appropriate. Images were saved to PACS. The patient tolerated the procedure well, and was taken to the recovery room, and there was no evidence of procedural complications. No new sensory or motor deficits were noted following the procedure.The patient was stable and able to ambulate on discharge home. Post-procedure instructions were provided. Pre-procedure pain score: 6/10 Post-procedure pain score: 1/10 Assessment/Plan: Megan Choi is a 49 year old female s/p caudal epidural steroid injection today for lumbar spondylosis, radiculitis/radiculopathy. 1. Following today's procedure, the patient was advised to contact the [facility] for any of the following: Fever, chills, or night sweats New onset of pain, numbness, or weakness Any questions/concerns regarding the procedure If unable to contact the Pain Center, the patient was instructed to go to a local Emergency Room forany complications. 2. The patient will receive a follow-up call in 1 week. 3. The patient should follow-up with for cervical epidural steroid injection in 2 weeks and for post-procedure evaluation. Teagan Solares DO [facility] documented in this encounter Nursing Notes Shala Santana RN - 01/12/2015 9:18 AM CDT Discharge Information IV Discontiued Time: na Amount of Fluid Infused: na Discharge Criteria = When patien returns to baseline or as per MD order Activity: Moves 4 extremities on command Circulation: BP +/- 20% of pre-procedure level O2 Sat: Patient is able to maintain O2 Sat >92% on RA Ambulation: Patient is able to stand and walk or stand and pivot into WC Respiration: Patient is able to breathe deeply Consciousness: Pt is fully awake Dressing: Clean/dry or No Dressing Notes: Discharge instructions and avs given to Pt. Patient meets criteria for discharge? YES Admitted to PCU? No Responsible adult present to accompany patient home? Yes Signature/Title: SHALA SANTANA RN Human Resources Advisor [facility] Shala Santana RN - 01/12/2015 8:27 AM CDT Chief Complaint Patient presents with ??? Pain lumbar TRACE Initial BP 118/73 mmHg Pulse 79 SpO2 98% Estimated body mass index is 29.81 kg/(m^2) as calculated from the following: Height as of 12/29/14: 1.575 m (5' 2). Weight as of 12/29/14: 73.936 kg (163 lb). BP completed using cuff size: regular Injection intake: If this procedure is requiring IV sedation has patient been NPO for 6 Hours? NA Is patient on coumadin, plavix or other prescribed blood thinner? No If patient is on coumadin was it held for 5 days? NA If patient is on plavix was it held for 7 days? NA Does patient take aspirin? Yes - ASA If this is for a cervical procedure and patient is on aspirin has it been held for 6 days? NA Any allergies to contrast dye, iodine, steroid and/or numbing medications? NO Is patient currently taking antibiotics or have an active infection? 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 Not Applicable Are the vital signs normal? Yes ANDREW Mack, RN-BC Human Resources Advisor [facility] documented in this encounter Plan of Treatment Not on filedocumented as of this encounter Visit Diagnoses Diagnosis Lumbosacral spondylosis without myelopat hy - Primary Lumbar radiculopathy Thoracic or lumbosacral neuritis or radi culitis, unspecified documented in this encounter Care Teams Supervisor Contact And Service Clerks Relationship Specialty Start Date End Date Danilo-Selma Mccoy APRN FISHER PCP - General 04/09/08 04/07/15 [address] [facility] [place] [id number] documented as of this encounter
--- OUTSIDE RECORDS SUMMARY | 2022-01-17 22:14 | XMS_ITS | Encounter Summary ---
:1965 Author Organization [facility] Address [address] [place] [address] Care Team Providers Name Role Phone Vanda Guerrero MD Primary Care Provider [phone] Reason for Visit Reason Comments RECHECK Follow up neurologist Flu Shot Encounter Details Date Type Department Care Team Description 04/08/2015 Office Visit [facility] Vanda Guerrero bola (Primary Dx); Pino Toribio MD Type 2 diabetes mellitus without complic ation (H); [address] Hyperlipidemia LDL goal <100 ; [place] [phone] [facility] Hypertension goal BP (blood pressure) < 130/80; [phone] [place] [id number] History of lumbar fusion; [phone] History of fusi on of cervical spine; (Work) Fatigue; Visit for screening mammogram; Need for prophy lactic vaccination and inoculation against influenza; Migraine withou t status migrainosus, not intractable, unspecified migraine type Social History Tobacco Use Types Packs/Day Years [...] How often do you attend yazidi or shinto Patient refused 08/08/2019 services? Do [...] Sign Reading Time Taken Comments Blood Pressure 116/74 04/08/2015 11:18 AM CDT Pulse 80 04/08/2015 11:18 AM CDT Temperature 36.9 ??C (98.4 ??F) 04/08/2015 11:18 AM CDT Respiratory Rate - - Oxygen Saturation - - Inhaled Oxygen Concentration - - Weight 81.2 kg (179 lb) 04/08/2015 11:18 AM CDT Height 157.5 cm (5' 2) 04/08/2015 11:18 AM CDT Body Mass Index 32.74 04/08/2015 11:18 AM CDT documented in this encounter Patient Instructions Patient InstructionsVanda Guerrero MD - 04/08/2015 11:47 AM CDT Add zanaflex (muscle relaxant) at night to help with neck and back pain Lab work today to look for nutrient deficiencies and other causes of fatigue Refills sent to your pharmacy Let's touch base in 4-6 weeks - either in person or via YinYangMapt to update me on how you are doing Schedule your mammogram - either with our mobile unit ([phone]) or at the hospital ([phone]) documented in this encounter Progress Notes Lori Weber - 04/08/2015 11:57 AM CDT Injectable Influenza Immunization Documentation 1. Is the person to be vaccinated sick today? No 2. Does the person to be vaccinated have an allergy to eggs or to a component of the vaccine? No 3. Has the person to be vaccinated today ever had a serious reaction to influenza vaccine in the past? No 4. Has the person to be vaccinated ever had Guillain-[place] syndrome? No Form completed by patient Vanda Guerrero MD - 04/08/2015 11:16 AM CDT SUBJECTIVE: Megan Choi is a 50 year old female who presents to clinic today for the following health issues: Follow up: Neurology visit - patient saw neurosurgeon as directed and did injections as recommended. Patient isstill experiencing pain after injections and cannot continue due to high lee. HPI: Injections worked for 2 months and pain was well controlled - then pain returned. Repeated FABIAN are not financially realistic - pays out of pocket and can't afford to have this done repeatedly. Getting hard to walk up steps in her mobile home because pain in neck and back is so bad. Noticing hands and foot tingling intermittently. Doesn't believe that she has fibromyalgia. Hasn't noticed significant change in pain with addition of cymbalta. Noticing that medications making her sedated - taking topamax in the morning - recently reviewed with pharmacy and plans to start taking at night. Migraines have been worsening in frequency recently. Diabetes - fasting 90-130. On metformin 1000mg daily and tolerating well. Concerned about nutrition deficiencies that she has read about as a result of being on metformin. Very fatigued. Weight up. Cares for her grandchildren and hasn't been able to exercise. Reports that she has good supplies of her medications. Depression has been under good control without recent flares. Problem list and histories reviewed & adjusted, as indicated. Additional history: as documented Problem list, Medication list, Allergies, and Medical/Social/Surgical histories reviewed in [facility] andupdated as appropriate. ROS: Constitutional, msk, neuro, psych, cv, endo systems are negative, except as otherwise noted. OBJECTIVE: BP 116/74 mmHg Pulse 80 Temp(Src) 98.4 ??F (36.9 ??C) (Tympanic) Ht 5' 2 (1.575 m) Wt 179 lb (81.194 kg) BMI 32.73 kg/m2 Body mass index is 32.73 kg/(m^2). GENERAL: alert and mild distress due to headache, neck pain NECK: tender over right posterior neck, limited rotation due to pain, muscle spasm present PSYCH: mentation appears normal, affect normal Neuro: normal gait, fluent speech Diagnostic Test Results: CT results reviewed. ASSESSMENT/PLAN: ICD-10-CM 1. Cervicalgia M54.2 tiZANidine (ZANAFLEX) 4 MG tablet S/p cervical fusion - had relief from FABIAN recently, but can't afford to repeat. Planning on other penitentiary pain strategies. Continue cymbalta for now, add zanaflex at night - reviewed that this may cause sedation. 2. Type 2 diabetes mellitus without complication E11.9 Hemoglobin A1c 3. Hyperlipidemia LDL goal <100 E78.5 Well controlled, continue current medications 4. Hypertension goal BP (blood pressure) < 130/80 I10 Well controlled, continue current medications 5. History of lumbar fusion Z98.89 tiZANidine (ZANAFLEX) 4 MG tablet 6. History of fusion of cervical spine Z98.1 tiZANidine (ZANAFLEX) 4 MG tablet 7. Fatigue R53.83 Vitamin B6 Vitamin B12 Vitamin D Deficiency CBC with platelets TSH with free T4 reflex Ferritin Lab work up today for fatigue - patient concerned about nutrient absorption while on metformin 8. Visit for screening mammogram Z12.31 MA Screening Digital Bilateral 9. Need for prophylactic vaccination and inoculation against influenza Z23 FLU VAC, SPLIT VIRUS IM > 3 YO (QUADRIVALENT) [76914] Vaccine Administration, Initial [52180] 10. Migraine without status migrainosus, not intractable, unspecified migraine type G43.909 Will start taking topamax at night and monitor - recent increase in headaches may be attributable to increasein neck pain - follow with addition of zanaflex Patient Instructions Add zanaflex (muscle relaxant) at night to help with neck and back pain Lab work today to look for nutrient deficiencies and other causes of fatigue Refills sent to your pharmacy Let's touch base in 4-6 weeks - either in person or via [employer] to update me on how you are doing Schedule your mammogram - either with our mobile unit ([phone]) or at the hospital ([phone]) Vanda Guerrero MD [facility]] documented in this encounter Nursing Notes Lori Weber - 04/08/2015 11:20 AM CDT Chief Complaint Patient presents with ??? RECHECK Follow up neurologist Initial BP 116/74 mmHg Pulse 80 Ht 5' 2 (1.575 m) Wt 179 lb (81.194 kg) BMI 32.73 kg/m2 Estimated body mass index is 32.73 kg/(m^2) as calculated from the following: Height as of this encounter: 5' 2 (1.575 m). Weight as of this encounter: 179 lb (81.194 kg). BP completed using cuff size: regular documented in this encounter Plan of Treatment Not on filedocumented as of this encounter Procedures Procedure Name Priority Date/Time Associated Diagnosis Comme nts VITAMIN D Routine 04/08/2015 11:58 Fatigue Results for this DEFICIENCY AM CDT procedure are i n SCREENING the results section. VITAMIN B6 Routine 04/08/2015 11:58 Fatigue Results for this AM CDT procedure are i n the results section. TSH WITH FREE T4 Routine 04/08/2015 11:58 Fatigue Results for this REFLEX AM CDT procedure are i n the results section. HEMOGLOBIN A1C Routine 04/08/2015 11:58 Type 2 diabetes Result s for this AM CDT mellitus without procedure a re in complication (H) the results section. FERRITIN Routine 04/08/2015 11:58 Fatigue Results for this AM CDT procedure are i n the results section. VITAMIN B12 Routine 04/08/2015 11:58 Fatigue Results for this AM CDT procedure are i n the results section. CBC WITH PLATELETS Routine 04/08/2015 11:58 Fatigue Resul ts for this AM CDT procedure are i n the results section. documented in this encounter Results MA Screening Digital Bilateral (04/16/2015 11:13 AM COMMUNITY EDUCATOR) Anatomical Region Laterality Modality Breast Bilateral Mammography Specimen (Source) Anatomical Location Collection Method / Collectio n Time Received Time / Laterality Volume Impressions 04/16/2015 12:41 PM COMMUNITY EDUCATOR IMPRESSION: BI-RADS CATEGORY: 1 - ??NEGATIVE. RECOMMENDED FOLLOW-UP: Annual Mammograph y Exam results letter mailed to patient. BRIGIDO RDZ MD Narrative 04/16/2015 12:41 PM COMMUNITY EDUCATOR SCREENING MAMMOGRAM, BILATERAL, DIGITAL w/CAD - 04/16/2015 11:13 AM. BREAST SYMPTOMS: No current breast compl aints. COMPARISON: ??05/27/2013,04/21/2008. BREAST DENSITY: Scattered fibroglandular densities. COMMENTS: No findings of suspicion for m alignancy. ? Procedure Note Brigido Rdz MD - 5 SCREENING MAMMOGRAM, BILATERAL, DIGITAL w/CAD - 04/16/2015 11:13 AM. BREAST SYMPTOMS: No current breast compl aints. COMPARISON: 05/27/2013,04/21/2008. BREAST DENSITY: Scattered fibroglandular densities. COMMENTS: No findings of suspicion for m alignancy. IMPRESSION IMPRESSION: BI-RADS CATEGORY: 1 - NEGATI VE. RECOMMENDED FOLLOW-UP: Annual Mammograph y Exam results letter mailed to patient. BRIGIDO RDZ MD Vanda Guerrero MD IMG MAMMOGRAPHY ORDERABLES Hemoglobin A1c (04/08/2015 11:58 AM CDT) athologist Signature Hemoglobin A1C 6.0 4.3 - 6.0 [facility] Specimen Anatomical Collection Method Collection Time Receive d Time (Source) Location / / Volume Laterality Blood specimen 04/08/2015 11:58 5 (specimen) AM CDT 11:59 AM CDT Vanda Guerrero MD LAB - BLOOD ORDERABLES Performing Organization Address City/[facility]/ZIP Code Phon e Number [facility] [address] [place] [address] Ferritin (04/08/2015 11:58 AM CDT) athologist Signature Ferritin 31 8 - 252 [facility] ng/mL [facility] Specimen Anatomical Collection Method Collection Time Receive d Time (Source) Location / / Volume Laterality Blood specimen 04/08/2015 11:58 5 (specimen) AM CDT 11:59 AM CDT Vanda Guerrero MD LAB - BLOOD ORDERABLES Performing Organization Address [facility]/ZIP Code Phon e Number [facility] [address] [place] [address] TSH with free T4 reflex (04/08/2015 11:58 AM CDT) athologist Signature TSH 1.84 0.40 - 4.00 [facility] mU/L [facility] Specimen Anatomical Collection Method Collection Time Receive d Time (Source) Location / / Volume Laterality Blood specimen 04/08/2015 11:58 5 (specimen) AM CDT 11:59 AM CDT Vanda Guerrero MD LAB - BLOOD ORDERABLES Performing Organization Address City/[facility]/ZIP [facility] Phon e Number [facility] [address] [place] [address] CBC with platelets (04/08/2015 11:58 AM CDT) athologist Signature WBC 5.4 4.0 - 11.0 [place] 10e9/L [facility] RBC Count 4.09 3.8 - 5.2 [place] 10e12/L [facility] Hemoglobin 13.1 11.7 - [place] 15.7 g/dL [facility] Hematocrit 39.9 35.0 - [place] 47.0 % [facility] MCV 98 78 - 100 [place] fl [facility] MCH 32.0 26.5 - [place] 33.0 pg [facility] MCHC 32.8 31.5 - [place] 36.5 g/dL [facility] RDW 12.7 10.0 - [place] 15.0 % [facility] Platelet Count 260 150 - 450 [place] 10e9/L [facility] Specimen Anatomical Collection Method Collection Time Receive d Time (Source) Location / / Volume Laterality Blood specimen 04/08/2015 11:58 5 (specimen) AM CDT 11:59 AM CDT Vanda Guerrero MD LAB - BLOOD ORDERABLES Performing Organization Address City/State/ZIP Code Phon e Number [facility] [address] [place] [address] Vitamin D Deficiency (04/08/2015 11:58 AM CDT) athologist Signature Vitamin D 32 20 - 75 [facility] Deficiency ug/L [facility] Comment: Season, race, dietary intake, and treatm ent affect the concentration of 57-udwvxth-Jetzyqw D. Values may decrea se during winter [...] Location / / Volume Laterality Blood specimen 04/08/2015 11:58 5 (specimen) AM CDT 11:59 AM CDT Vanda Guerrero MD LAB - BLOOD ORDERABLES Performing Organization Address City/State/ZIP Code Phon e Number [address] (ABNORMAL) Vitamin B12 (04/08/2015 11:58 AM CDT) athologist Signature Vitamin B12 1,224 (H) 193 - 986 [facility] pg/mL [facility] Comment: Interp: [phone] = Normal Specimen Anatomical Collection Method Collection Time Receive d Time (Source) Location / / Volume Laterality Blood specimen 04/08/2015 11:58 5 (specimen) AM CDT 11:59 AM CDT Vanda Guerrero MD LAB - BLOOD ORDERABLES Performing Organization Address City/[facility]/ZIP Code Phon e Number [id number] [place] [address] (ABNORMAL) Vitamin B6 (04/08/2015 11:58 AM CDT) athologist Signature Vitamin B6 330.6 (H) [facility] Comment: Reference range: 20.0 to 125.0 Unit: nmol/L (Note) INTERPRETIVE INFORMATION: Vitamin B6 (Py ridoxal 5-Phosphate) Pyridoxal 5'-phosphate measured in a spe cimen collected following an 8-hour or overnight fast ac curately indicates vitamin B6 nutritional status. Non-fasti ng specimen concentration reflects recent vitamin in take. Test developed and characteristics deter mined by [employer]. See Compliance Statement B : [employer] Performed by [employer], [address] [place] [id number] [email or web address], Jae Botello MD, L ab. Director Specimen Anatomical Collection Method Collection Time Receive d Time (Source) Location / / Volume Laterality Blood specimen 04/08/2015 11:58 5 (specimen) AM CDT 11:59 AM CDT Vanda Guerrero MD LAB - BLOOD ORDERABLES Performing Organization Address City/[facility]/ZIP Code Phon e Number [address] [address] documented in this encounter Visit Diagnoses Diagnosis Cervicalgia - Primary Type 2 diabetes mellitus without complic ation (H) Hyperlipidemia LDL goal <100 Other and unspecified hyperlipidemia Hypertension goal BP (blood pressure) < 130/80 Unspecified essential hypertension History of lumbar fusion History of fusion of cervical spine Arthrodesis status Fatigue Other malaise and fatigue Visit for screening mammogram Other screening mammogram Need for prophylactic vaccination and in oculation against influenza Migraine without status migrainosus, not intractable, unspecified migraine type Visit for screening mammogram Other screening mammogram documented in this encounter Care Teams Club Director Relationship Specialty Start Date End Date Vanda Guerrero MD PCP - General Internal Medicine 04/08/15 01/08/19 [address] [facility] [address] [address] [place], [place] [address] documented as of this encounter
--- OUTSIDE RECORDS SUMMARY | 2022-01-17 22:14 | XMS_ITS | Encounter Summary ---
:1965 Author Organization [facility] Address [facility] [place] [address] Care Team Providers Name Role Phone Selma Good APRN GEOTHERMAL FIELD TECHNICIAN Primary Care Provider [phone] Reason for Referral Consultation - Closed Specialty Diagnoses / Procedures Referred By Contact Refer red To Contact Diagnoses Lumbar radiculopathy Cervicalgia History of lumbar fusion History of fusion of cervical spine Chronic left SI joint pain Vanda Guerrero MD [facility] [address] [place] [address] CL-SH- REFERRAL (OP) [address] [place] [id number] [place] [id number] Phone: [phone] Fax: Referral ID Status Reason Start Date Expiration Date Visits Requ ested Visits Authorized [id number] Closed 12/09/2014 12/09/2015 1 1 Reason for Visit Reason Comments Musculoskeletal Problem left leg pain , neck pain Encounter Details Date Type Department Care Team Description 12/09/2014 Office Visit [facility] Vanda Guerrero Lumbar r adiculopathy (Primary Dx); Pino Toribio MD Cervicalgia; 14[address] [facility] [address] [place] [address] History of lumbar fusion; [place] [address] [facility] History of fusion of cervical spine; [phone] [place] [address] Chronic left SI joint pain [phone] (Wo rk) Social History Tobacco Use Types [...] How often do you attend uatsdin or oriental orthodox Patient refused 08/08/2019 services? [...] Sign Reading Time Taken Comments Blood Pressure 106/70 12/09/2014 7:35 AM CDT Pulse 80 12/09/2014 7:35 AM CDT Temperature 35.7 ??C (96.2 ??F) 12/09/2014 7:35 AM CDT Respiratory Rate - - Oxygen Saturation - - Inhaled Oxygen Concentration - - Weight 76.2 kg (168 lb) 12/09/2014 7:35 AM CDT Height 156.2 cm (5' 1.5) 12/09/2014 7:35 AM CDT Body Mass Index 31.23 12/09/2014 7:35 AM CDT documented in this encounter Patient Instructions Patient InstructionsVanda Guerrero MD - 12/09/2014 8:16 AM CDT Expect a phone call to schedule a visit with our medical spine specialists in [place] documented in this encounter Progress Notes Vanda Guerrero MD - 12/09/2014 7:37 AM CDT SUBJECTIVE: eMgan Choi is a 49 year old female who presents to clinic today for the following health issues: Musculoskeletal problem/pain ?? Duration: ongoing for several years but has recently worsened ?? Description Location: Left Leg pain and neck pain ?? Intensity: Ranges from moderate to severe ?? Accompanying signs and symptoms: radiation of pain to hip and gluteus for leg pain. Neck pain mainly C1, C2 ?? History Previous similar problem: YES Previous evaluation: Yes, told it is related to fibromyalgia. Had surgery but has not felt relief since then. Also had neck evaluated and had C5-C7 fused and was later told C1 and C2 are bulging disc and surgery is complicated. ?? Precipitating or alleviating factors: Trauma or overuse: no Aggravating factors include: sitting, laying, especially long periods of walking. Seems to worsen atnight - cannot sleep from it. ?? Therapies tried and outcome: ibuprofen but only helps for short periods of time with little relief Left leg and neck pain - history of surgeries. C5-C7 fused in 2000 by a physician who no longer practices here. Has had L4-L5 fused - this required 2 surgeries - Dr Kirkland did the last surgery. Now has pins in place. A neurologist had told her that C1 and C2 are bulging. Has also had surgery by Dr Kirkland in the past in the left SI joint that wasn't helpful. Didn't have physical therapy after any of these surgeries. Last time she had physical therapy was around 2009 - since that time, 's insurance has poor physical therapy coverage. Has appt with the pain clinic - only thing covered there would be injections, so can't afford to go. Radiation of pain - always has pain in medial calf/anterior prajapati x years. No persistent associated swelling. Small amt of numbness LLE. Massage has been helpful recently for left SI joint/buttock pain. Interested in limiting medications over time - wants to minimize chronic medications as much as possible. No associated bowel/bladder dysfunction. No fevers. Patient carries diagnosis of fibromyalgia, and has been counseled that her current symptoms represent fibromyalgia, but due to her hx of disc disease and the asymmetric nature of her symptoms with someassociated neurologic symptoms. She is worried about progression of her lumbar and cervical disease that might warrant different treatment. Believes that last imaging of her spine was about 5 years ago- not currently available for my review. Problem list and histories reviewed & adjusted, as indicated. Additional history: as documented Problem list, Medication list, Allergies, and Medical/Social/Surgical histories reviewed in [facility] andupdated as appropriate. OBJECTIVE: BP 106/70 mmHg Pulse 80 Temp(Src) 96.2 ??F (35.7 ??C) (Tympanic) Ht 5' 1.5 (1.562 m) Wt 168lb (76.204 kg) BMI 31.23 kg/m2 Body mass index is 31.23 kg/(m^2). GENERAL: healthy, alert and no distress MS: tender to palpation over trapezius distribution, lumbar spinous processes, lumbar paraspinal musculature, left SI joint and sciatic notch, and left medial lower leg. Patient with positive straight leg raise bilaterally, normal strength and sensation in upper and lower extremities, able to walk on heels ASSESSMENT/PLAN: ICD-9-CM 1. Lumbar radiculopathy 724.4 ORTHO SAW SUPERINTENDENT REFERRAL 2. Cervicalgia 723.1 ORTHO SAW SUPERINTENDENT REFERRAL 3. History of lumbar fusion V45.89 ORTHO SAW SUPERINTENDENT REFERRAL 4. History of fusion of cervical spine V45.4 ORTHO SAW SUPERINTENDENT REFERRAL 5. Chronic left SI joint pain 724.6 ORTHO SAW SUPERINTENDENT REFERRAL 338.29 Recommended a consultation with lan specialist as patient has had complicated spine surgical history and has worsening of unilateral pain involving left neck, low back, and leg that I am concerned are related to recurrent disc disease or nerve impingement rather than fibromyalgia. Patient in agreement with plan. If specialist evaluation with their recommendations for imaging and treatment do not help in pain relief, would pursue fibromyalgia treatment more aggressively. 25 minutes spent with patient, more than 50% of the time was spent in counseling and coordination ofcare of the above issues. Vanda Guerrero MD [facility] documented in this encounter Nursing Notes Lori Weber - 12/09/2014 7:37 AM CDT Chief Complaint Patient presents with ??? Musculoskeletal Problem left leg pain , neck pain Initial BP 106/70 mmHg Pulse 80 Temp(Src) 96.2 ??F (35.7 ??C) (Tympanic) Ht 5' 1.5 (1.562 m) Wt 168 lb (76.204 kg) BMI 31.23 kg/m2 Estimated body mass index is 31.23 kg/(m^2) as calculated from the following: Height as of this encounter: 5' 1.5 (1.562 m). Weight as of this encounter: 168 lb (76.204 kg). BP completed using cuff size: regular documented in this encounter Plan of Treatment Not on filedocumented as of this encounter Visit Diagnoses Diagnosis Lumbar radiculopathy - Primary Thoracic or lumbosacral neuritis or radi culitis, unspecified Cervicalgia History of lumbar fusion History of fusion of cervical spine Arthrodesis status Chronic left SI joint pain Disorders of sacrum documented in this encounter Care Teams Security Representative Relationship Specialty Start Date End Date Selma Good, SEAN GEOTHERMAL FIELD TECHNICIAN PCP - General 04/09/08 04/07/15 [address] [facility] [place] [id number] documented as of this encounter
--- OUTSIDE RECORDS SUMMARY | 2022-01-17 22:14 | XMS_ITS | Encounter Summary ---
:1965 Author Organization [place] Address [address] [place] [address] Care Team Providers Name Role Phone Vanda Guerrero MD Primary Care Provider [phone] Reason for Visit Reason Onset Date Comments Refill Request 09/10/2015 METFORMIN HCL 500MG Encounter Details Date Type Department Care Team Description 09/10/2015 Refill [facility] Vanda Lal, Refill Request 1440 Priscilla Bass MD (METFORMIN HCL 500MG) [place] [id number] 8738 [facility] [phone] [facility] [place] [address] (Wo rk) Social [...] How often do you attend islam or temple Patient refused 08/08/2019 services? Do [...] Telephone Encounter - Kallie Mishra RN - 09/10/2015 3:28 PM CDT Prescription refilled x 1 per [facility] Refill Protocol. Has follow up scheduled. Telephone Encounter - Eri Middleton - 09/10/2015 11:17 AM CDT METFORMIN HCL 500MG Last Written Prescription Date: 06/10/2015 Last Fill Quantity: 180, # refills: 0 Last Office Visit with [facility], P or [facility] prescribing provider: 07/08/2015 Next 5 appointments (look out 90 days) Sep 29, 2015 9:40 AM MyChart Carlos with Vanda Guerrero MD [facility] ([facility]) [address] [facility] [place] [address] MICROL <5 08/10/2014 MICROALBUMIN * 08/10/2014 Value: [...] 10/27/2013 BP Readings from Last 3 Encounters: 07/08/15 100/68 04/08/15 116/74 01/26/15 112/70 A1C 6.0 04/08/2015 A1C 5.8 10/06/2014 A1C 5.9 03/25/2014 A1C 6.0 10/27/2013 A1C 5.6 05/30/2013 POTASSIUM Date Value Ref Range Status 10/27/2013 3.8 3.4 - 5.3 mmol/L Final documented in this encounter Plan of Treatment Not on filedocumented as of this encounter Visit Diagnoses Diagnosis Type 2 diabetes mellitus without complic ation - Primary documented in this encounter Additional Health Concerns Assessment Noted Time PHQ-9 Depression Total Score: 13 07/09/2015 7:49 AM CS T documented as of this encounter Care Teams Aix System Administrator Relationship Specialty Start Date End Date Vanda Guerrero MD PCP - General Internal Medicine 04/08/15 01/08/[address] [place] [address] [place] [address] documented as of this encounter
--- OUTSIDE RECORDS SUMMARY | 2022-01-17 22:14 | XMS_ITS | Encounter Summary ---
:1965 Author Organization [place] Address [address] [place] [address] Care Team Providers Name Role Phone Selma Good APRN SULPHATE TESTER Primary Care Provider [phone] Reason for Visit Reason Onset Date Comments Other 01/08/2015 Encounter Details Date Type Department Care Team Description 01/08/2015 Telephone [facility] Neurosurgery [place], Angella Angeles, Other Clinic [place] CONTROL PANEL ASSEMBLER SULPHATE TESTER [address] [facility] [address] [place] [address] [address] [place], [place] [address] (Wo rk) Social History [...] How often do you attend denominational or episcopalian Patient refused 08/08/2019 services? Do you belong [...] Encounter - Rosalia Main APRN CNP - 01/08/2015 1:56 PM CDT Pt was contacted with CT results of cervical and lumbar spine. Recommend injection therapy. [facility]erredto [facility]. documented in this encounter Plan of Treatment Not on filedocumented as of this encounter Visit Diagnoses Not on filedocumented in this encounter Care Teams Wrapper Hand Relationship Specialty Start Date End Date Selma Good APRN CNP PCP - General 04/09/08 04/07/[address] [facility] [address] [place], [place] [address] documented as of this encounter
--- OUTSIDE RECORDS SUMMARY | 2022-01-17 22:14 | XMS_ITS | Encounter Summary ---
:1965 Author Organization [facility] Address [address] [place] [address] Care Team Providers Name Role Phone Selma Good APRN ROBOTIC TECHNICIAN Primary Care Provider [phone] Encounter Details Date Type Department Care Team Description 03/24/2015 Orders Only [facility] Florentino, Type 2 diab etes mellitus without complication (H) (Primary Dx); [place] Angeles APRN Obesity [address] ROBOTIC TECHNICIAN [place] [address] [address] [facility] [phone] [facility] [place] [address] Social History Tobacco Use Types Packs/Day [...] How often do you attend caodaism or gnosticist Patient refused 08/08/2019 services? Do [...] mellitus without complic ation (H) - Primary Obesity Obesity, unspecified documented in this encounter Care Teams Quality Control Engineer Relationship Specialty Start Date End Date Danilo-Selma Mccoy, OPERATIONS EXAMINER ROBOTIC TECHNICIAN PCP - General 04/09/08 04/07/15 [address] [facility] [address] [place], [place] [address] documented as of this encounter
--- OUTSIDE RECORDS SUMMARY | 2022-01-17 22:14 | XMS_ITS | Encounter Summary ---
:1965 Author Organization [place] Address [address] [place] [address] Care Team Providers Name Role Phone Selma Good APRN EARLY CHILDHOOD ASSOCIATE Primary Care Provider [phone] Reason for Visit Reason Onset Date Comments Patient/info Update 01/19/2015 Post LESI Encounter Details Date Type Department Care Team Description 01/19/2015 Telephone [facility] Pain Teagan Solares, Patient/info Update Management Center DO (Post LESI) [address] [place] [address] PAIN [place] [address] [place], [place] [address] [facility] [place] [address] [place] [address] [phone] Social History Tobacco Use Types Packs/Day Years [...] How often do you attend pentecostal or buddhist Patient refused 08/08/2019 services? Do [...] this encounter Miscellaneous Notes Telephone Encounter - Lashae Alexis - 01/19/2015 9:56 AM CDT Patient had a LESI injection on 01/12/15. Called patient for an update. Pt reported the following details: Patient states that she has got significant relief from the injection. Told patient that the information will be forwarded to her provider. Also explained that, if a steroid medication was used, it could take up to 14 days to feel the full effect and if pt has any further questions or concerns pt should call the nurse line at [phone]. Lashae Stack(R) documented in this encounter Plan of Treatment Not on filedocumented as of this encounter Visit Diagnoses Not on filedocumented in this encounter Care Teams Data Quality Consultant Relationship Specialty Start Date End Date Selma Good APRN EARLY CHILDHOOD ASSOCIATE PCP - General 04/09/08 04/07/15 [address] [facility] [place] [address] documented as of this encounter
--- OUTSIDE RECORDS SUMMARY | 2022-01-17 22:14 | XMS_ITS | Encounter Summary ---
:1965 Author Organization [facility] Address [address] [place] [address] Care Team Providers Name Role Phone Selma Good APRN, CNP Primary Care Provider [phone] Reason for Referral - Closed Specialty Diagnoses / Procedures Referred By Contact Refer red To Contact Diagnoses Degenerative disc disease Rosalia Main APRN CNP [facility] [address] [facility] [address] [place] [address] Referral ID Status Reason Start Date Expiration Date Visits Requ ested Visits Authorized [id number] Closed 01/08/2015 01/08/2016 1 1 Encounter Details Date Type Department Care Team Description 01/08/2015 Orders Only [facility] Rosalia Main cleopatra disc Neurosurgery Clinic SEAN Angeles P disease (Primary Dx) Bozena [facility] [address] [facility] [address] [facility] [address] [place] [address] [phone] Social History Tobacco Use Types Packs/Day Years [...] How often do you attend yarsanism or rastafarian Patient refused 08/08/2019 services? Do [...] as of this encounter Plan of Treatment Scheduled Referrals Name Type Priority Associated Diagnoses Order S [facility] Referral Routine Degenerative disc Ordered: 01/08/2015 (ILIFF) REFERRAL disease documented as of this encounter Visit Diagnoses Diagnosis Degenerative disc disease - Primary Degeneration of intervertebral disc, sit e unspecified documented in this encounter Care Teams Planer Stone Relationship Specialty Start Date End Date Selma Good APRN FURNACE WORKER PCP - General 04/09/08 04/07/15 [address] [facility] [place] [address] documented as of this encounter
--- OUTSIDE RECORDS SUMMARY | 2022-01-17 22:14 | XMS_ITS | Encounter Summary ---
:1965 Author Organization [facility] Address [address] [place] [address] Care Team Providers Name Role Phone Selma Good APRN SECOND OPERATOR Primary Care Provider [phone] Encounter Details Date Type Department Care Team Description 01/26/2015 Radiant Appointment [facility] Teagan Solares DDD (degenerative Clinic [facility] disc disease), Pain Management [facility] cervical [address] [facility] [address] [facility] [address] [place] [address] [place], [place] [phone] [address] (Work) [phone] Social History Tobacco Use Types Packs/Day Years [...] How often do you attend pentecostal or sikhism Patient refused 08/08/2019 services? Do [...] Date/Time Associated Diagnosis Comme nts XR Routine 01/26/2015 9:10 AM DDD (degenerative Resu lts for this CERVICAL/THORACIC CDT disc disease), procedur e are in EPIDURAL INJ INCL cervical the result s IMAGING section. documented in this encounter Results XR Cervical/Thoracic Epidural Inj (01/26/2015 9:10 AM CDT) Specimen (Source) Anatomical Location Collection Method / Collectio n Time Received Time / Laterality Volume Narrative Lashae Alexis - 01/26/2015 9:11 A M CDT This exam was marked as non-reportable because it will not be read by a radiologist or a [facility] non-radiologis t provider. Procedure Note Lashae Alexis - 01/26/2015Formatt ing of this note might be different from the original. This exam was marked as non-reportable b ecause it will not be read by a radiologist or a [facility] non-radiologist provider. Teagan Solares DO [facility] DIAGNOSTIC IMAGING ORDER ILDEFONSO documented in this encounter Visit Diagnoses Diagnosis DDD (degenerative disc disease), cervica l Degeneration of cervical intervertebral disc documented in this encounter Administered Medications Inactive Administered Medications - up to 3 most recent administrations Medication Order MAR Action Action Date Dose Rate Site iohexol (OMNIPAQUE) 300 mg/mL Given by Other 01/26/2015 9:11 AM CDT 0 .5 mLs injection 10 mL 10 mL, EPIDURAL, ONCE, On Sun01/26/15 at 0830, For 1 dose documented in this encounter Care Teams Displayer Relationship Specialty Start Date End Date Danilo-Selma Mccoy, FIBRE CEMENT MOULDER SECOND OPERATOR PCP - General 04/09/08 04/07/[address] [facility] [address] ANAYA, DAV[place] [address] documented as of this encounter
--- OUTSIDE RECORDS SUMMARY | 2022-01-17 22:14 | XMS_ITS | Encounter Summary ---
:1965 Author Organization [facility] Address [address] [place] [address] Care Team Providers Name Role Phone Selma Good APRN GAS TURBINE ASSEMBLER Primary Care Provider [phone] Reason for Visit Reason Onset Date Comments Procedure 01/13/2015 FABIAN Encounter Details Date Type Department Care Team Description 01/13/2015 Telephone [facility] Pain Pain Management Pr ocedure (FABIAN) Management [facility], [place] [address] [place] [address] [address] [place] [address] Social History Tobacco Use Types [...] How often do you attend anabaptism or holiness Patient refused 08/08/2019 services? Do [...] this encounter Miscellaneous Notes Telephone Encounter - Yvonne Cedillo - 01/13/2015 2:18 PM CDT Pre-screening questions for Radiology Injections: Injection to be done at which interventional clinic site? [facility] Procedure ordered by Dr. AGRAWAL Procedure ordered? Cervical Epidural Steroid Injection What insurance would patient like us to bill for this procedure? BCBS ?? Worker's comp-Any injection DO NOT SCHEDULE and route to Marisa Arteaga. ?? [employer] insurance - If scheduling an SI joint injection DO NOT SCHEDULE and route to William. ?? [employer]- MBB's must be scheduled at LEAST two weeks apart ?? [employer] - Any injection besides hip/shoulder/knee joint DO NOT SCHEDULE and route to Marisa. She will obtain PA and call pt back to schedule procedure or notify pt of denial. Is an pressurization mechanic needed? No Patient has a drive home? (mandatory) Yes Is patient taking any blood thinners (plavix, coumadin, jantoven, warfarin, heparin, pradaxa or dabigatran )? No (If so, do not schedule, contact RN and/or MD) Is patient taking any aspirin products? Yes - Pt takes 81mg daily; instructed to hold 6 day(s) priorto procedure. (If more than 325mg/day do not schedule; Contact RN/MD. For all non-cervical interventional procedures if patient is taking MORE than 325mg/day, limit aspirin to 81-325mg/day x 1 week. No hold requiredday of procedure. For CERVICAL procedures, hold all aspirin products for 6 days.) Does the patient have a bleeding or clotting disorder? No (If yes, okay to schedule, but contact RN/MD). For any patients with platelet count <100, must be forwarded to provider Is patient diabetic? yes If YES, have them bring their glucometer. Does patient have an active infection or treated for one within the past week? No (If YES, do NOT schedule and route to RN) Is patient currently taking any antibiotics? No (If YES, do NOT schedule and route to RN) For patients on chronic, preventative, or prophylactic antibiotics, procedures can be scheduled. For patients on antibiotics for active or recent infection: Sujatha Camacho [place]-antibiotic course must have been completed for [address] Hopkins-antibiotic course must have been completed for 7 days Is patient actively being treated for cancer or immunocompromised, including the spleen having been removed? No For Dr. Mahoney patients without spleens should have the chart sent to her (If YES, do NOT schedule and route to RN) Any allergies to contrast dye, iodine, shellfish, or numbing and steroid medications? No (If so, inform nursing and note in scheduling comments.) Allergies: Erythromycin Any chance of ? No Has the patient had a flu shot or any other vaccinations within 7 days before or after the procedure. No Does patient have an MRI/CT? CT (SI joint, hip injections, lumbar sympathetic blocks, and stellate ganglion blocks do not require anMRI) ?? If so, was it done at [facility]? Yes ?? If not, where was it done? Was the MRI done w/in the last 3 years? Yes If MRI was not done at [facility], [facility] do NOT schedule. Route to nursing. (If pt has disc the injection can be scheduled but pt has to bring disc to appt. If they show up w/out disc the injection cannot be done) Reminders (please tell patient if applicable): ?? Instructed pt to arrive 30 minutes early for IV start if this is for a cervical procedure, ALL sympathetic (stellate ganglion, hypogastric, or lumbar sympathetic block) and all sedation procedures (RFA, spinal cord stimulation trials). -IVs are not routinely placed for Solares and Egyhazi cervical case ?? If NPO for sedation, it is okay to take medications with sips of water (except if they are to hold blood thinners). *DO take blood pressure medication if it is prescribed* ?? If this is for a cervical TRACE aspirin needs to be held for 6 days. INFORMED ?? Do not schedule procedures requiring IV placement in the first appointment after lunch ?? For patients 85 or older we recommend having an adult stay w/ them for the remainder of the day. Does the patient have any questions? Yvonne Cedillo [facility] documented in this encounter Plan of Treatment Not on filedocumented as of this encounter Visit Diagnoses Not on filedocumented in this encounter Care Teams Net Developer Architect Relationship Specialty Start Date End Date Danilo-Selma Mccoy APRN GAS TURBINE ASSEMBLER PCP - General 04/09/08 04/07/15 [address] [facility] [place] [address] documented as of this encounter
--- OUTSIDE RECORDS SUMMARY | 2022-01-17 22:14 | XMS_ITS | Encounter Summary ---
:1965 Author Organization [place] Address [address] [facility] [place] [address] Care Team Providers Name Role Phone Selma Good APRN SHELLFISH GROWER Primary Care Provider [phone] Reason for Visit Reason Onset Date Comments Patient/info Update 02/02/2015 Post FAIBAN Encounter Details Date Type Department Care Team Description 02/02/2015 Telephone [facility] Pain Teagan Solares, Patient/info Update Management Center DO (Post FABIAN) [address] [place] [address] [address] [place], [place] [address] [facility] [place] [address] [place] [address] [phone] Social History Tobacco Use Types Packs/Day Years [...] How often do you attend baptist or orthodoxy Patient refused 08/08/2019 services? Do you belong to any clubs or organizations such as No 08/08/2019 baptist groups, unions, fraternal or athletic groups, or [...] Notes Telephone Encounter - Lashae Alexis - 02/02/2015 8:56 AM CDT Patient had a Cervical injection on 01/26/15. Called patient for an update. Pt reported the following details: Patient states that she is feeling pain relief from the injection. Told patient that the information will be forwarded to her provider. Also explained that, if a steroid medication was used, it could take up to 14 days to feel the full effect and if pt has any further questions or concerns pt should call the nurse line at [phone]. Lashae Stack(R) documented in this encounter Plan of Treatment Not on filedocumented as of this encounter Visit Diagnoses Not on filedocumented in this encounter Care Teams Supervisor Statement Clerks Relationship Specialty Start Date End Date Selma Good APRN SHELLFISH GROWER PCP - General 04/09/08 04/07/[address] [facility] [place] [address] documented as of this encounter
--- OUTSIDE RECORDS SUMMARY | 2022-01-17 22:14 | XMS_ITS | Encounter Summary ---
:1965 Author Organization [place] Address [address] [place] [address] Care Team Providers Name Role Phone Vanda Guerrero MD Primary Care Provider [phone] Reason for Visit Reason Comments Menopausal Sx Encounter Details Date Type Department Care Team Description 09/29/[address] [facility] Vanda Guerrero Left-ant ed low back pain with left-sided sciatica (Primary Dx); Pino Toribio MD Breast pain, left; [address] [place] [address] Type 2 diabetes mellitus wit hout complication (H); [place] [id number] [facility] Major depressive disorder, recurrent epi sode, moderate (H); [phone] [place] [address] Hypertension goal BP (blood pressure) < 130/80; [phone] Hyperlipidemia LDL goal <100; (Work) History of fusion of cervical spine; History o f lumbar fusion; Chronic fatigue Social History Tobacco Use Types Packs/Day Years [...] How often do you attend denominational or restorationism Patient refused 08/08/2019 services? Do you belong [...] Sign Reading Time Taken Comments Blood Pressure 114/68 09/29/2015 9:49 AM CDT Pulse 80 09/29/2015 9:49 AM CDT Temperature 37.4 ??C (99.4 ??F) 09/29/2015 9:49 AM CDT Respiratory Rate - - Oxygen Saturation 97% 09/29/2015 9:49 AM CDT Inhaled Oxygen Concentration - - Weight 79.6 kg (175 lb 8 oz) 09/29/2015 9:49 AM CDT Height 158.8 cm (5' 2.5) 09/29/2015 9:49 AM CDT Body Mass Index 31.59 09/29/2015 9:49 AM CDT documented in this encounter Patient Instructions Patient InstructionsVanda Guerrero MD - 09/29/2015 10:43 AM CDT Come back for fasting lab visit at your convenience Trial of gabapentin - start with just a nighttime dose and work up to three times daily if you can Call [phone] to set up a special mammogram and ultrasound to investigate your breast pain Please come back in about 6 weeks to review everything - in the meantime, you can try Replens or Rephresh (available OTC) I'm happy to send you to physical therapy or back to the surgeons anytime - let me know documented in this encounter Progress Notes Vanda Guerrero MD - 09/29/2015 9:41 AM CDT SUBJECTIVE: Megan Choi is a 50 year old female who presents to clinic today for the following health issues: Patient states she has not been sleeping. Has been getting about 2-3 hours of sleep most nights. Also states neck pain is getting worse. Patient states her left calf is constantly in pain. Also has menopausal concerns and left breast is sore. HPI: Sleep problems - left hip and low back pain has become more severe - keeping her from sleeping. Getsonly 3-4 hours of sleep per night. Neck pain is also contributing to sleep difficulty. Had some injections with Dr Solares that were helpful for about 6 weeks - going back for more injections is cost prohibitive. Stressors - has 4 grandchildren living with her right now. Two temporarily, and 2 permanently. 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 One year old is 21 lbs. Hx of neck and back surgery - told in the past that she could only lift 10 lbs. Physical therapy coverage is not good with current insurance - would have to pay out of pocket through deductible. Not able to afford more injections or specialist care at this time. Pain in left lower back radiates down left leg - causes some weakness and burning pain. Zanaflex - has been taking at night. Not finding very helpful. Vaginal dryness since menopause. Pain with intercourse. Has been having tingling in hands and feet. May have found a lump in the left breast. Pain in both breasts, but worse on left side. Noticed about one month ago - lump in left upper outer side that hurts all the time. Hurts under arm too. No skinchanges noted. Diabetes - due for lab work. Can't exercise due to pain. Wanting to stop all of her medications, but understands the value they may provide and the danger instopping them all of a sudden. Problem list and histories reviewed & adjusted, as indicated. Additional history: as documented Problem list, Medication list, Allergies, and Medical/Social/Surgical histories reviewed in EPIC andupdated as appropriate. ROS: Constitutional, cardiovascular, pulmonary, gi and msk, neuro, psych systems are negative, except as otherwise noted. OBJECTIVE: BP 114/68 mmHg Pulse 80 Temp(Src) 99.4 ??F (37.4 ??C) (Tympanic) Ht 5' 2.5 (1.588 m) Wt 175lb 8 oz (79.606 kg) BMI 31.57 kg/m2 SpO2 97% LMP 10/30/2011 Body mass index is 31.57 kg/(m^2). GENERAL: alert, no distress, over weight and fatigued HENT: normal cephalic/atraumatic, both ears: clear effusion, nasal mucosa edematous , oropharynx clear and oral mucous membranes moist RESP: lungs clear to auscultation - no rales, rhonchi or wheezes CV: regular rate and rhythm, normal S1 S2, no S3 or S4, no murmur, click or rub, no peripheral edemaand peripheral pulses strong Breast: no skin changes, 1cm diameter lump palpated left lateral breast border, also palpable axillary fullness on left that is tender, no nipple discharge MS: tender to palpation left lower back, unable to perform straight leg raise due to hamstring tightness, prolonged time to get to exam table due to stiffness after sitting, antalgic gait NEURO: alert and oriented x 3, CN grossly intact and symmetric, fluent speech, light touch sensationintact PSYCH: mentation appears normal, anxious, judgement and insight intact and appearance well groomed Diagnostic Test Results: Reviewed CT scans of cervical and lumbar spine from 12/2014 with patient ASSESSMENT/PLAN: ICD-10-CM 1. Left-sided low back pain with left-sided sciatica M54.42 gabapentin (NEURONTIN) 300 MG capsule Limited financial means for further injections or physical therapy. Discussed medication options andplan to start gabapentin with follow up in 6 weeks. 2. Breast pain, left N64.4 MA Diagnostic Digital Bilateral US Breast Left Complete 4 Quadrants Focal findings on exam, concern for breast mass - advanced imaging orders placed 3. Type 2 diabetes mellitus without complication (HCC) E11.9 Hemoglobin A1c Lipid panel reflex to direct LDL Comprehensive metabolic panel TSH with free T4 reflex Microalbumin quantitative random urine Due for diabetes follow up - lab work ordered today 4. Major depressive disorder, recurrent episode, moderate (HCC) F33.1 Symptoms stable - continue to follow 5. Hypertension goal BP (blood pressure) < 130/80 I10 Well controlled, continue current medications 6. Hyperlipidemia LDL goal <100 E78.5 7. History of fusion of cervical spine Z98.1 gabapentin (NEURONTIN) 300 MG capsule 8. History of lumbar fusion Z98.89 gabapentin (NEURONTIN) 300 MG capsule 9. Chronic fatigue R53.82 Vitamin B12 Vitamin D Deficiency Patient Instructions Come back for fasting lab visit at your convenience Trial of gabapentin - start with just a nighttime dose and work up to three times daily if you can Call [phone] to set up a special mammogram and ultrasound to investigate your breast pain Please come back in about 6 weeks to review everything - in the meantime, you can try Replens or Rephresh (available OTC) I'm happy to send you to physical therapy or back to the surgeons anytime - let me know [facility] documented in this encounter Nursing Notes Jacquelyn Calloway - 09/29/2015 9:54 AM CDT Chief Complaint Patient presents with ??? Menopausal Sx Initial BP 114/68 mmHg Pulse 80 Temp(Src) 99.4 ??F (37.4 ??C) (Tympanic) Ht 5' 2.5 (1.588 m) Wt 175 lb 8 oz (79.606 kg) BMI 31.57 kg/m2 SpO2 97% LMP 10/30/2011 Estimated body mass index is 31.57 kg/(m^2) as calculated from the following: Height as of this encounter: 5' 2.5 (1.588 m). Weight as of this encounter: 175 lb 8 oz (79.606 kg). BP completed using cuff size: SMA Tom documented in this encounter Plan of Treatment Not on filedocumented as of this encounter Results Lipid panel reflex to direct LDL (12/03/2015 8:50 AM CDT) athologist Signature Cholesterol 152 <200 mg/dL [facility] Triglycerides 109 <150 mg/dL [facility] Comment: Fasting specimen HDL Cholesterol 51 >49 mg/dL [place] [facility] CS [facility] LDL Cholesterol Calculated 79 <100 mg/dL [facility] Comment: Desirable: <100 mg/dl Non HDL Cholesterol 101 <130 mg/dL [facility] Specimen Anatomical Collection Method Collection Time Receive d Time (Source) Location / / Volume Laterality Blood specimen 12/03/2015 8:50 AM 016 8:55 (specimen) CDT AM CDT Vanda Guerrero MD LAB - BLOOD ORDERABLES Performing Organization Address City/State/ZIP Code Phon e Number [facility] [address] [place] [address] Microalbumin quantitative random urine (09/30/2015 9:22 AM CDT) athologist Signature Creatinine 174 mg/dL [place] Urine [facility] Albumin Urine 10 mg/L [place] mg/L [facility] Albumin Urine 5.67 0 - 25 [place] mg/g Cr mg/g Cr [facility] Specimen Anatomical Collection Method Collection Time Receive d Time (Source) Location / / Volume Laterality Urine specimen 09/30/2015 9:22 AM 016 9:23 (specimen) CDT AM CDT Vanda Guerrero MD LAB - URINE ORDERABLES Performing Organization Address City/State/ZIP Code Phon e Number [facility] [address] [place] [address] [facility] [address] [place] [address], U [phone] Vitamin D Deficiency (09/30/2015 9:22 AM CDT) athologist Signature Vitamin D 36 20 - 75 [facility] Deficiency ug/L [facility] Comment: Season, race, dietary intake, and treatm ent affect the concentration of 79-gxxnday-Lponxsp D. Values may decrea se during winter [...] Organization Address City/State/ZIP Code Phon e Number [address] Vitamin B12 (09/30/2015 9:22 AM CDT) athologist Signature Vitamin B12 482 193 - 986 [facility] pg/mL [facility] Comment: Interp: [phone] = Normal Specimen Anatomical Collection Method Collection Time Receive d Time (Source) Location / / Volume Laterality Blood specimen 09/30/2015 9:22 AM 016 9:23 (specimen) CDT AM CDT Vanda Guerrero MD LAB - BLOOD ORDERABLES Performing Organization Address City/State/ZIP Code Phon e Number [facility] [address] (ABNORMAL) TSH with free T4 reflex (09/30/2015 9:22 AM CDT) P athologist Signature TSH 0.07 (L) 0.40 - [facility] 4.00 mU/L [facility] Specimen Anatomical Collection Method Collection Time Receive d Time (Source) Location / / Volume Laterality Blood specimen 09/30/2015 9:22 AM 016 9:23 (specimen) CDT AM CDT Vanda Guerrero MD LAB - BLOOD ORDERABLES Performing Organization Address City/State/ZIP Code Phon e Number [facility] [address] [place] [address] (ABNORMAL) Comprehensive metabolic panel (09/30/2015 9:22 AM CDT) [facility] gist Method Time Signature Sodium 145 (H) 133 - 144 [place] mmol/L [facility] Potassium 4.0 3.4 - 5.3 [place] mmol/L [facility] Chloride 110 (H) 94 - 109 [place] mmol/L [facility] Carbon Dioxide 25 20 - 32 [place] mmol/L [facility] Anion Gap 10 3 - 14 [place] mmol/L [facility] Glucose 104 (H) 70 - 99 [place] mg/dL [facility] Urea Nitrogen 10 7 - 30 [place] mg/dL [facility] Creatinine 0.67 0.52 - [place] 1.04 [facility] mg/dL [facility] GFR Estimate >90 >60 [place] Non GFR Calc mL/min/1. CLINICS 7m2 [facility] GFR Estimate If >90 >60 [place] Black GFR Calc mL/min/1. CLIN ICS 7m2 [facility] Calcium 9.7 8.5 - [facility] 10.1 [facility] mg/dL [facility] Bilirubin Total 0.4 0.2 - 1.3 [place] mg/dL [facility] Albumin 3.6 3.4 - 5.0 [place] g/dL [facility] Protein Total 8.2 6.8 - 8.8 [place] g/dL [facility] Alkaline 148 40 - 150 [place] Phosphatase U/L [facility] ALT 47 0 - 50 [place] U/L [facility] AST 19 0 - 45 [place] U/L [facility] Specimen Anatomical Collection Method Collection Time Receive d Time (Source) Location / / Volume Laterality Blood specimen 09/30/2015 9:22 AM 016 9:23 (specimen) CDT AM CDT Vanda Guerrero MD LAB - BLOOD ORDERABLES Performing Organization Address City/State/ZIP Code Phon e Number [facility] [address] [place] [address] (ABNORMAL) Hemoglobin A1c (09/30/2015 9:22 AM CDT) P athologist Signature Hemoglobin A1C 6.2 (H) 4.3 - 6.0 [facility] Specimen Anatomical Collection Method Collection Time Receive d Time (Source) Location / / Volume Laterality Blood specimen 09/30/2015 9:22 AM 016 9:23 (specimen) CDT AM CDT Vanda Guerrero MD LAB - BLOOD ORDERABLES Performing Organization Address City/State/ZIP Code Phon e Number [facility] [address] [facility] [place] [address] [phone] documented in this encounter Visit Diagnoses Diagnosis Left-sided low back pain with left-sided sciatica - Primary Breast pain, left Mastodynia Type 2 diabetes mellitus without complic ation (H) Major depressive disorder, recurrent epi sode, moderate (H) Major depressive disorder, recurrent epi sode, moderate Hypertension goal BP (blood pressure) < 130/80 Unspecified essential hypertension Hyperlipidemia LDL goal <100 Other and unspecified hyperlipidemia History of fusion of cervical spine Arthrodesis status History of lumbar fusion Chronic fatigue Other malaise and fatigue documented in this encounter Additional Health Concerns Assessment Noted Time PHQ-9 Depression Total Score: 13 07/09/2015 7:49 AM CS T documented as of this encounter Care Teams Stockbroker Relationship Specialty Start Date End Date Vanda Guerrero MD PCP - General Internal Medicine 04/08/15 01/08/19 0821 [facility] [place] [address] documented as of this encounter
--- OUTSIDE RECORDS SUMMARY | 2022-01-17 22:14 | XMS_ITS | Encounter Summary ---
:1965 Author Organization [place] Address [address] [place] [address] Care Team Providers Name Role Phone Selma Good APRN BRANCH CONTROLLER Primary Care Provider [phone] Reason for Visit Reason Onset Date Comments Refill Request 01/25/2015 OUNE TOUCH ULTRA SATISH T STRIPS Encounter Details Date Type Department Care Team Description 01/25/2015 Refill [facility] Eag Selma Anthony Refill Request (OUNE [address] [place] BRANCH CONTROLLER TOUCH ULTRA TEST STRIPS) [place] [address] [facility] [phone] [facility] [place] [address] (Wo rk) Social [...] How often do you attend presybeterian or scientologist Patient refused 08/08/2019 services? Do [...] Notes Telephone Encounter - Abigail Burciaga - 01/26/2015 1:25 PM CDT Pharmacy has this refill. Abigail Burciaga RN Telephone Encounter - Marisa Matthew - 01/25/2015 3:33 PM CDT ONE TOUCH ULTRA TOUCH TEST STRIPS Last Written Prescription Date: 10/06/2014 Last Fill Quantity: 100, # refills: PRN Last Office Visit with [facility] primary care provider: 12/09/2014 documented in this encounter Plan of Treatment Not on filedocumented as of this encounter Visit Diagnoses Diagnosis Type 2 diabetes, HbA1c goal < 7% (H) - P rimary Type II or unspecified type diabetes sukhdev litus without mention of complication, not stated as uncontrolled documented in this encounter Care Teams Epic Ambulatory Analysts Relationship Specialty Start Date End Date Danilo-Selma Mccoy, INSULATOR APPRENTICE BRANCH CONTROLLER PCP - General 04/09/08 04/07/15 [address] [facility] [place] [address] documented as of this encounter
--- OUTSIDE RECORDS SUMMARY | 2022-01-17 22:14 | XMS_ITS | Encounter Summary ---
:1965 Author Organization [place] Address [address] [place] [address] Care Team Providers Name Role Phone Selma Good APRN, CNP Primary Care Provider [phone] Reason for Visit Reason Onset Date Comments Refill Request 12/22/2014 LORATADINE-D 24 HOUR TABLET Encounter Details Date Type Department Care Team Description 12/22/2014 Refill [facility] Selma Hodges Refill Request [address] MD [place] CNP (LORATADINE-D 24 HOUR [place] [phone] [address] [facility] TABLET) [phone] [facility] [place] [address] (Wo rk) [...] How often do you attend scientology or oriental orthodox Patient refused 08/08/2019 services? [...] this encounter Miscellaneous Notes Telephone Encounter - Charlotte Mark CMA - 12/22/2014 4:55 PM CDT Faxed. Telephone Encounter - Selma Good APRN CNP - 12/22/2014 4:51 PM CDT Prescription printed, signed and put on MA/YIELD IMPROVEMENT ENGINEER's desk. Thanks! Telephone Encounter - Marisa Matthew - 12/22/2014 4:42 PM CDT LORATADINE-D 24 HOUR TABLET Last Written Prescription Date: 12/17/2013 Last Fill Quantity: 90, # refills: PRN Last Office Visit with [facility] primary care provider: 12/09/2014 Future Office visit: Routing refill request to provider for review/approval because: Drug not on the [facility] refill protocol or controlled substance documented in this encounter Plan of Treatment Not on filedocumented as of this encounter Visit Diagnoses Diagnosis Seasonal allergic rhinitis - Primary Allergic rhinitis, cause unspecified documented in this encounter Care Teams Warehouse Shift Supervisor Relationship Specialty Start Date End Date Selma Good APRN STAFF WEAPONS OFFICER PCP - General 04/09/08 04/07/[address] [facility] [address] [place], [place] [address] documented as of this encounter
--- OUTSIDE RECORDS SUMMARY | 2022-01-17 22:14 | XMS_ITS | Encounter Summary ---
:1965 Author Organization [place] Address [facility] [place] [address] Care Team Providers Name Role Phone Selma Good APRN CLINICAL RESEARCH COORDINATOR Primary Care Provider [phone] Reason for Visit (Routine) - Closed Specialty Diagnoses / Procedures Referred By Contact Refer red To Contact Radiology / Radiology. Diagnoses R#NA, BC, written order Sh Ct Scan Procedures CT CERVICAL SPINE WO [address] [place] [phone] Phone: Referral ID Status Reason Start Date Expiration Date Visits Requ ested Visits Authorized [id number] Closed 01/01/2015 01/01/2016 1 1 Encounter Details Date Type Department Care Team Description 01/08/[address] [facility] atus post cervical [facility] [place] CLINICAL RESEARCH COORDINATOR spinal fusion [address] [place] [phone] ORTHOPEDICS [phone] [address] [place], [place] [address] Social History Tobacco Use Types Packs/Day Years [...] How often do you attend hinduism or denominational Patient refused 08/08/2019 services? Do you belong to any clubs or organizations such as No 08/08/2019 hinduism groups, [employer], [employer] or athletic groups, or school groups? [...] 2 times capsuleIndications: daily Fibromyalgia fluticasone (FLONASE) [place] 1-2 sprays into 3 Package 3 05/03/2016 [...] Priority Date/Time Associated Diagnosis Comme nts CT CERVICAL SPINE Routine 01/08/2015 12:38 PM Status post cerv ical Results for this W/O CONTRAST CDT spinal fusion procedure are in the results section. documented in this encounter Results CT Cervical Spine w/o Contrast (01/08/2015 12:38 PM CDT) Anatomical Region Laterality Modality Spine, SUBRAD CT NEURO, SUBRAD CT NEURO, [facility] CT SPINE Computed Tomography Specimen (Source) Anatomical Location Collection Method / Collectio n Time Received Time / Laterality Volume Impressions 01/08/2015 1:17 PM CDT IMPRESSION: 1. Fusion hardware in place anteriorly C 5-C7 with solid anterior fusion. 2. Degenerative changes as described. 3. Small central disc protrusions at C2- C3 and C4-C5 with prominent annular bulge at C3-C4. MARY SWAN MD Narrative 01/08/2015 1:17 PM CDT [...] or lateral stenosis. C7-T1: Negative. Procedure Note Mary Swan MD - 01/08/2015Forma tting of this [...] C4-C5 with prominent annular bulge at C3-C4. MARY SWAN MD Rosalia Main APRN CLINICAL RESEARCH COORDINATOR IMG CT ORDERABLES documented in this encounter Visit Diagnoses Diagnosis Status post cervical spinal fusion Arthrodesis status documented in this encounter Care Teams Photo Offset Printer Relationship Specialty Start Date End Date Selma Good APRN CNP PCP - General 04/09/08 04/07/[address] [facility] [address] [place], [place] [address] documented as of this encounter
--- OUTSIDE RECORDS SUMMARY | 2022-01-17 22:14 | XMS_ITS | Encounter Summary ---
:1965 Author Organization [facility] Address [address] [place] [address] Care Team Providers Name Role Phone Vanda Guerrero MD Primary Care Provider [phone] Reason for Visit Reason Comments Cough Otalgia Encounter Details Date Type Department Care Team Description 07/08/2015 Office Visit [facility] Serum, Keyona Acute bro nchitis, unspecified organism (Primary Dx); Pino Panda MD Middle ear effusion, bilateral [address] [place] [address] [place] [phone] [address] [place], [place] [address] Social History Tobacco Use Types Packs/Day Years [...] How often do you attend gnosticist or jainism Patient refused 08/08/2019 services? Do [...] Sign Reading Time Taken Comments Blood Pressure 100/68 07/08/2015 11:18 AM TRANSCRIBING MACHINE OPERATOR Pulse 96 07/08/2015 11:18 AM TRANSCRIBING MACHINE OPERATOR Temperature 37.2 ??C (98.9 ??F) 07/08/2015 11:18 AM TRANSCRIBING MACHINE OPERATOR Respiratory Rate - - Oxygen Saturation 98% 07/08/2015 11:18 AM TRANSCRIBING MACHINE OPERATOR Inhaled Oxygen Concentration - - Weight 80.1 kg (176 lb 8 oz) 07/08/2015 11:18 AM TRANSCRIBING MACHINE OPERATOR Height 158.8 cm (5' 2.5) 07/08/2015 11:18 AM TRANSCRIBING MACHINE OPERATOR Body Mass Index 31.77 07/08/2015 11:18 AM TRANSCRIBING MACHINE OPERATOR documented in this encounter Patient Instructions Patient InstructionsSerum, Keyona Panda MD - 07/08/2015 12:01 PM TRANSCRIBING MACHINE OPERATOR 1. Augmentin 1 pill twice a day for 10 days 2. Continue allergy medications 3. Continue ibuprofen as needed for pain/fevers 4. Follow-up if not improving or getting worse SCRIBING MACHINE OPERATOR documented in this encounter Progress Notes Keyona Sexton MD - 07/08/2015 11:22 AM CST SUBJECTIVE: Megan Choi is a 50 year old female who presents to clinic today for the following health issues: RESPIRATORY SYMPTOMS ?? Duration: 2 weeks ?? Description nasal congestion, facial pain/pressure, cough, fever and ear pain ?? Severity: moderate ?? Accompanying signs and symptoms: None ?? History (predisposing factors): none ?? Precipitating or alleviating factors: None ?? Therapies tried and outcome: OTC NSAID and OTC cold medicine, temporaly helped to sleep. Started 2 weeks ago with dry cough. Has had cough off and on for past few months and feels well for a few weeks in between. Started to get congestion, facial pain/pressure - starting with fever last night. Fever to 101.2. Tired/achey. Right ear > left ear pain - comes and goes, more painful last few days. More pressure on left ear than pain. Has been using ibuprofen, which helps. Cough gradually getting worse, now productive with green sputum. No SOB, has some chest tightness. Grandchildren have been sick. Problem list and histories reviewed & adjusted, as indicated. Additional history: as documented ROS: Constitutional, HEENT, cardiovascular, pulmonary, gi and gu systems are negative, except as otherwise noted. Problem list, Medication list, Allergies, and Medical/Social/Surgical histories reviewed in [facility] andupdated as appropriate. OBJECTIVE: BP 100/68 mmHg Pulse 96 Temp(Src) 98.9 ??F (37.2 ??C) (Tympanic) Ht 5' 2.5 (1.588 m) Wt 176lb 8 oz (80.06 kg) BMI 31.75 kg/m2 SpO2 98% Body mass index is 31.75 kg/(m^2). General Appearance: tired appearing, alert and no distress Eyes: no discharge, erythema. Normal pupils. Right Ear: clear effusion and TM with slight erythema compared to left Left Ear: clear effusion Nose: congested Sinuses: not tender Oropharynx: clear PND Neck: Supple. No adenopathy, no asymmetry, masses Respiratory: lungs clear to auscultation - no rales, rhonchi or wheezes. Cardiovascular: regular rate and rhythm, normal S1 S2, no S3 or S4 and no murmur, click or rub. No peripheral edema. Skin: no rashes or lesions. Well perfused and normal turgor. Diagnostic Test Results: none ASSESSMENT/PLAN: (J20.9) Acute bronchitis, unspecified organism (primary encounter diagnosis) Comment: given duration of sx and worsening productive cough, will tx as bronchitis; however, also with some erythema of right TM that could be an early AOM Plan: amoxicillin-clavulanate (AUGMENTIN) 875-125 MG per tablet - due to macrolide allergy, will tx with Augmentin bid for 10 days - this does not cover atypicals very well - discussed symptomatic management - follow up if not improving (H65.93) Middle ear effusion, bilateral Comment: bilateral with possible ear AOM on right Plan: amoxicillin-clavulanate (AUGMENTIN) 875-125 MG per tablet - continue antihistamine and flonse - augmentin will cover AOM, if necessary Follow up with Provider - as needed See Patient Instructions Keyona Sexton [facility] SCRIBING MACHINE OPERATOR documented in this encounter Nursing Notes Adele Osman - 07/08/2015 11:21 AM CST Chief Complaint Patient presents with ??? Cough ??? Otalgia Initial BP 100/68 mmHg Pulse 96 Temp(Src) 98.9 ??F (37.2 ??C) (Tympanic) Ht 5' 2.5 (1.588 m) Wt 176 lb 8 oz (80.06 kg) BMI 31.75 kg/m2 SpO2 98% Estimated body mass index is 31.75 kg/(m^2) as calculated from the following: Height as of this encounter: 5' 2.5 (1.588 m). Weight as of this encounter: 176 lb 8 oz (80.06 kg). BP completed using cuff size: yennifer OSMAN SMA SCRIBING MACHINE OPERATOR documented in this encounter Plan of Treatment Not on filedocumented as of this encounter Visit Diagnoses Diagnosis Acute bronchitis, unspecified organism - Primary Middle ear effusion, bilateral documented in this encounter Additional Health Concerns Assessment Noted Time PHQ-9 Depression Total Score: 13 07/09/2015 7:49 AM CS T documented as of this encounter Care Teams Custom Tailor Apprentice Relationship Specialty Start Date End Date Vanda Guerrero MD PCP - General Internal Medicine 04/08/15 01/08/19 [address] [facility] [place] [id number] documented as of this encounter
--- OUTSIDE RECORDS SUMMARY | 2022-01-17 22:14 | XMS_ITS | Encounter Summary ---
:1965 Author Organization [facility] Address [address] [place] [address] Care Team Providers Name Role Phone Selma Good APRN COVER MAT MACHINE OPERATOR Primary Care Provider [phone] Reason for Visit Reason Comments Pain FABIAN for Pain Management Encounter Details Date Type Department Care Team Description 01/26/2015 Radiology [facility] SolaresTeagan german Cervical s pondylosis without myelopathy (Primary Dx); Injection Office Pain Management DO Noreen Cervical radiculopathy Visit [address] [place] [address] [place], [place] [phone] (Work) [phone] Social History Tobacco Use Types Packs/Day Years [...] How often do you attend confucianist or judaism Patient refused 08/08/2019 services? Do [...] Sign Reading Time Taken Comments Blood Pressure 113/68 01/26/2015 9:17 AM CDT (from Ex tended Vitals) Pulse 76 01/26/2015 9:17 AM CDT (from Ex tended Vitals) Temperature - - Respiratory Rate - - Oxygen Saturation 98% 01/26/2015 8:29 AM CDT Inhaled Oxygen Concentration - - Weight - - Height - - Body Mass Index - - documented in this encounter Patient Instructions Patient InstructionsCathie Lew CMA - 01/26/2015 9:11 AM CDT [facility] Procedure Discharge Instruction Nurse line #:[phone] Appointment line #; [phone] Teagan Solares You had an epidural steroid injection. Meds used: lidocaine/dexamethasone/omniscan. ??? You may resume your normal diet ??? Avoid strenuous activity for the first 24 hours ??? No driving for 6 hours ??? Be cautious with walking as numbness and/or weakness in the lower extremities up to 6-8 hours may occur due to effect of local anesthetic ??? The steroid medication, which will hopefully give you the watermaster relief, may take up to 14 days to have full effect. ??? You may resume your regular activities after 24 hours ??? You may resume your regular medications after procedure ??? If you have diabetes, check your blood sugar more frequently than usual as your blood sugar may be higher than normal for 10-14 days following steroid injection. Contact your doctor who manages your diabetes if your blood sugar is higher than usual. ??? You may shower, however no swimming or tub baths or hot tubs for 24 hours following your procedure. ??? Mild to moderate increase in pain for one day or several days following the injection is not uncommon. ??? You may use ice packs 10-15 minutes three to four a day at the injection site for comfort. ??? If you experience any of the following, call the pain center nursing line during work hours at [phone] or decision science analyst physician after hours at [phone] (choose option #1): o Fever over 100F o Swelling, bleeding, redness, drainage, warmth at the injection site o Progressive weakness or numbness on your legs or arms o Loss of bowel or bladder function o Unusual headache that is not relieved by Tylenol o Unusual new onset of pain that is not improving documented in this encounter Progress Notes Teagan Solares DO - 01/26/2015 8:44 AM CDT [facility] - Procedure Note Date of Visit: 01/26/15 Procedure performed: T1-T2 interlaminar epidural steroid injection with fluoroscopic guidance Diagnosis: Cervical spondylosis; Cervical radiculitis/radiculopathy Lead Data Architect: Teagan Solares DO Anesthesia: none Indications: Megan Choi is a 49 year old female who is seen at the request of Rosalia Main APRN CNP for cervical epidural steroid injection. The patient describes neck pain. The patient has been exhibiting symptoms consistent with lumbar intraspinal inflammation and radiculopathy. Symptoms have been persistent, disabling, and intermittently severe. The patient reports minimal improvement with conservative treatment, including medications. . CT was done on 01/08/15 which showed FINDINGS: Prior anterior fusion with plates and pedicle screws from C5-C7 and bone plugs or artificial disc material at C5-C6 and C6-C7 interspace levels. The fusion appears solid. Alignment is normal through T1. No paraspinous soft tissue abnormality. Findings by level as follows: C2-C3: Minimal central disc protrusion seen on series 6 image 33. No lateral stenosis. C3-C4: Mild ventral ridging and prominent annular bulge. This results in mild central stenosis. No significant foraminal stenosis. C4-C5: Small broad-based central disc protrusion resulting in mild central stenosis. No significant foraminal stenosis. C5-C6: Anterior fusion as described. No central or lateral stenosis. C6-C7: Anterior fusion. Mild ventral ridging but no significant central or lateral stenosis. C7-T1: Negative. IMPRESSION: 1. Fusion hardware in place anteriorly C5-C7 with solid anterior fusion. 2. Degenerative changes as described. 3. Small central disc protrusions at C2-C3 and C4-C5 with prominent annular bulge at C3-C4. Allergies: Allergies Allergen Reactions ??? Erythromycin Vitals: BP 112/70 mmHg Pulse 84 SpO2 98% Review of Systems: The patient [...] prepped and draped in sterile fashion. The T1-T2 interspace was identified with use of fluoroscopy in AP view. A 25- gauge, 1.5 inch needle was used to anesthetize the skin and subcutaneous tissue entry site with a total of 2 ml of 1% lidocaine. Under fluoroscopic visualization, a 22-gauge, 3.5 inch Tuohy epidural needle was slowly advanced towards the epidural space a few millimeters left of midline. The latter part of the needle advancement was guided with fluoroscopy in the lateral view. The epidural space was identified using loss of resistance technique. After negative aspiration for heme and cerebrospinal fluid, a total of 0.5 mL of non-ionic contrast was injected to confirm needle placement. Epidurogram confirmed spread within the posterior epidural space. 2 ml of 40mg/ml of triamcinolone and 1 ml of preservative free saline wasinjected. The needle was removed. Images were saved to PACS. The patient tolerated the procedure well, and there was no evidence of procedural complications. No new sensory or motor deficits were noted following the procedure. The patient was stable and able to ambulate on discharge home. Post-procedure instructions were provided. Pre-procedure pain score: 7/10 Post-procedure pain score: 3/10 Assessment/Plan: Megan Choi is a 49 year old female s/p cervcial interlaminar epidural steroid injection today for cervical spondylosis and radiculitis/radiculopathy. 1. Following today's procedure, the patient was advised to contact the [facility] for any of the following: Fever, chills, or night sweats New onset of pain, numbness, or weakness Any questions/concerns regarding the procedure If unable to contact the Pain Center, the patient was instructed to go to a local Emergency Room forany complications. 2. The patient will receive a follow-up call in 1 week. 3. Follow-up with Rosalia Main APRN CNP in 2 weeks for post-procedure evaluation. Teagan Solares DO [facility] documented in this encounter Nursing Notes Cathie Lew CMA - 01/26/2015 8:30 AM CDT Injection intake: If this procedure is requiring IV sedation has patient been NPO for 6 Hours? No Is patient on coumadin, plavix or other prescribed blood thinner? No If patient is on coumadin was it held for 5 days? NA If patient is on plavix was it held for 7 days? NA Does patient take aspirin? Yes - ASA If this is for a cervical procedure and patient is on aspirin has it been held for 6 days? Yes Any allergies to contrast dye, iodine, steroid and/or numbing medications? NO Is patient currently taking antibiotics or have an active infection? NO Does patient have a truck driver salesperson? 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 NO Are the vital signs normal? Yes Chief Complaint Patient presents with ??? Pain FABIAN for Pain Management Initial BP 112/70 mmHg Pulse 84 SpO2 98% Estimated body mass index is 29.81 kg/(m^2) as calculated from the following: Height as of 12/29/14: 1.575 m (5' 2). Weight as of 12/29/14: 73.936 kg (163 lb). BP completed using cuff size: large Cathie Lew CMA ([facility] documented in this encounter Plan of Treatment Not on filedocumented as of this encounter Visit Diagnoses Diagnosis Cervical spondylosis without myelopathy - Primary Cervical radiculopathy Brachial neuritis or radiculitis nos documented in this encounter Care Teams Internal Sales Engineer Relationship Specialty Start Date End Date Selma Good APRN COVER MAT MACHINE OPERATOR PCP - General 04/09/08 04/07/[address] [address] [place], [place] [id number] documented as of this encounter
--- OUTSIDE RECORDS SUMMARY | 2022-01-17 22:14 | XMS_ITS | Encounter Summary ---
:1965 Author Organization [facility] Address [address] [place] [address] Care Team Providers Name Role Phone Vanda Guerrero MD Primary Care Provider [phone] Reason for Visit (Routine) - Closed Specialty Diagnoses / Procedures Referred By Contact Refer red To Contact Radiology / Radiology. Diagnoses prev [facility] Procedures MA SCREENING DIGITAL BILATERAL [address], [address] [place] [address] Phone: Fax: Referral ID Status Reason Start Date Expiration Date Visits Requ ested Visits Authorized [id number] Closed 04/15/2015 04/14/2016 1 1 Encounter Details Date Type Department Care Team Description 04/16/2015 Hospital Encounter [facility] Vanda Guerrero for screening Coratoan Toribio MD mammogram Center [address] [place] [address] [address], [address] [place] [address] [place], [place] [phone] [address] (Work) [phone] Social History Tobacco Use Types Packs/Day Years [...] 08/08/2019 relatives? How often do you attend adventist or christianity Patient refused 08/08/2019 services? Do you belong to any clubs or organizations such as No 08/08/2019 adventist groups, [employer], fraTrovit or athletic groups, or school groups? How [...] 2 Fibromyalgia times daily fluticasone (FLONASE) [address] [place] 1-2 sprays 3 Package 3 10/0605/03/2016 MCG/ACT nasal into both nostrils sprayIndications: OME daily (otitis media with effusion), left loratadine-pseudoePHEDri Take 1 tablet by 90 tablet 0 12/2202/20/2016 ne (CLARITIN-D 24-HOUR) mouth daily 10-240 MG per tabletIndications: Seasonal allergic rhinitis metFORMIN (GLUCOPHAGE) Take 1 tablet (500 180 tablet 1 10/0606/08/2015 500 MG mg) by mouth 2 tabletIndications: Type times daily (with 2 diabetes, HbA1c goal < meals) 7% (H) multivitamin, Take 1 tablet by 0 10/13 therapeutic with mouth daily minerals (MULTI-VITAMIN) TABS omeprazole (PRILOSEC) 20 Take 1 capsule (20 90 capsule 0 12/23/2015 MG capsuleIndications: mg) by mouth daily GERD (gastroesophageal reflux disease) simvastatin (ZOCOR) 20 Take 1 tablet (20 90 tablet 1 201405/11/2015 MG tabletIndications: mg) by mouth At Hyperlipidemia LDL goal Bedtime <100 tiZANidine (ZANAFLEX) 4 Take 1-2 tablets 90 tablet 5 201408/20/2015 MG tabletIndications: (4-8 mg) by mouth 2 [...] Associated Diagnosis Comme nts MA SCREENING Routine 04/16/2015 11:13 AM Visit for screening R esults for this DIGITAL BILATERAL CAT SCAN TECH mammogram procedure are in the results section. documented in this encounter Results MA Screening Digital Bilateral (04/16/2015 11:13 AM CAT SCAN TECH) Anatomical Region Laterality Modality Breast Bilateral Mammography Specimen (Source) Anatomical Location Collection Method / Collectio n Time Received Time / Laterality Volume Impressions 04/16/2015 12:41 PM CAT SCAN TECH IMPRESSION: BI-RADS CATEGORY: 1 - ??NEGATIVE. RECOMMENDED FOLLOW-UP: Annual Mammograph y Exam results letter mailed to patient. BRIGIDO RDZ MD Narrative 04/16/2015 12:41 PM CAT SCAN TECH SCREENING MAMMOGRAM, BILATERAL, DIGITAL w/CAD - 04/16/2015 [...] MD Vanda Guerrero MD IMG MAMMOGRAPHY ORDERABLES documented in this encounter Visit Diagnoses Diagnosis Visit for screening mammogram Other screening mammogram documented in this encounter Care Teams Director Specialty Relationship Specialty Start Date End Date Vanda Guerrero MD PCP - General Internal Medicine 04/08/15 01/08/19 [address] [facility] [place] [id number] documented as of this encounter
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
--- OUTSIDE RECORDS SUMMARY | 2022-01-17 22:14 | XMS_ITS | Encounter Summary ---
:1965 Author Organization [facility] Address [address] [facility] [address] Care Team Providers Name Role Phone Selma Good APRN HRIS COORDINATOR Primary Care Provider [phone] Reason for Visit Reason Onset Date Comments Procedure 01/08/2015 Encounter Details Date Type Department Care Team Description 01/08/2015 Telephone [facility] Pain Pain Management Pr nela, Procedure Management Center [facility] [address] [place], [place] [phone] Social History Tobacco Use Types Packs/Day Years [...] How often do you attend spiritism or mandaen Patient refused 08/08/2019 services? Do [...] Notes Telephone Encounter - Halie Siddiqui - 01/11/2015 8:54 AM CDT Pre-screening questions for Radiology Injections: Injection to be done at which interventional clinic site? [facility] Procedure ordered by Dr. Main Procedure ordered? Lumbar Epidural Steroid Injection What insurance would patient like us to bill for this procedure? [employer] ?? Worker's comp-Any injection DO NOT SCHEDULE [...] or notify pt of denial. Is an educational interpreter needed? No Patient has a drive home? (mandatory) Yes Is patient taking any blood thinners (plavix, coumadin, jantoven, warfarin, heparin, pradaxa or dabigatran )? No (If so, do not schedule, contact RN and/or MD) Is patient taking any aspirin products? Yes - Pt takes 81mg daily; instructed to hold 1 day(s) priorto procedure. (If more than 325mg/day [...] procedure. No Does patient have an MRI/CT? YEs (SI joint, hip injections, lumbar sympathetic blocks, and stellate ganglion blocks do not require anMRI) ?? If so, was it done at [facility]? Yes ?? If not, where was it done? Was the MRI done w/in the last 3 years? Yes If MRI was not done at [facility], [facility] do NOT schedule. Route to [...] needs to be held for 6 days. ?? Do not schedule procedures requiring IV placement in the first appointment after lunch ?? For patients 85 or older we recommend having an adult stay w/ them for the remainder of the day. Does the patient have any questions? Halie Siddiqui [facility] Telephone Encounter - Veronica Porter RN - 01/08/2015 3:46 PM CDT Routing to front office clerk to schedule patient for LESI vs other lumbar procedure TBD by pain specialist.Please include in the visit note that order is for lumbar injection first, then cervical, and that patient has history of spine surgery. Ver[facility] Tele[facility] Encounter - Yvonne Cedillo - 01/08/2015 2:02 PM CDT Procedure or injection only (pt will be contacted within 24 hrs to schedule): Lumbar injections thencervical. Please advise on scheduling. Yvonne Cedillo Massage Therapist [facility] documented in this encounter Plan of Treatment Not on filedocumented as of this encounter Visit Diagnoses Not on filedocumented in this encounter Care Teams Home Performance Consultant Relationship Specialty Start Date End Date Danilo-Selma Mccoy, SEAN HRIS COORDINATOR PCP - General 04/09/08 04/07/15 [address] [facility] [place] [id number] documented as of this encounter
--- OUTSIDE RECORDS SUMMARY | 2022-01-17 22:15 | XMS_ITS | Encounter Summary ---
:1965 Author Organization [place] Address [address] [place] [address] Care Team Providers Name Role Phone Selma Good APRN ORDER BUILDER LOADER Primary Care Provider [phone] Encounter Details Date Type Department Care Team Description 08/10/2014 Orders Only [facility] Eag an Type 2 diabetes, HbA1C goal < 7% (H); [address] Hyperlipidemia LDL goal <100 ; [place] [id number] Hypertension goal BP (blood pressure) < 130/80 Social History Tobacco Use Types Packs/Day Years [...] How often do you attend moravian or amish Patient refused 08/08/2019 services? Do you belong [...] Procedure Name Priority Date/Time Associated Comments Diagnosis ALBUMIN RANDOM URINE Routine 08/10/2014 8:57 AM Type 2 diabete s, Results for this QUANTITATIVE RESIN MIXER HbA1C goal < 7% (H) procedure are in Hyperlipidemia LDL the [facility] ts goal <100 section. Hypertension goal BP (blood pressure) < 130/80 LIPID REFLEX TO Routine 08/10/2014 8:56 AM Type 2 diabetes, Re sults for this DIRECT LDL PANEL RESIN MIXER HbA1C goal < 7% (H) procedure are in Hyperlipidemia LDL the [facility] ts goal <100 section. Hypertension goal BP (blood pressure) < 130/80 documented in this encounter Results Microalbumin quantitative random urine (08/10/2014 8:57 AM RESIN MIXER) [facility] Method Time Signature Creatinine 41 mg/dL [place] Urine [facility] Albumin Urine <5 mg/L [place] mg/L [facility] Albumin Urine Unable to calculate due to low value 0 - 25 [place] mg/g Cr Effective 01/07/2014, the re ference range for this assay has changed to reflect mg/g Cr [facility] new instrumentation/methodology. HOSPITAL Specimen Anatomical Collection Method Collection Time Receive d Time (Source) Location / / Volume Laterality Urine specimen 08/10/2014 8:57 AM 015 8:58 (specimen) RESIN MIXER AM RESIN MIXER Selma Good APRN ORDER BUILDER LOADER LAB - URINE ORDERABLES Performing Organization Address City/State/ZIP Code Phon e Number [facility] [address] [place] [address] [phone] [facility] [address] [place] [address] [facility] [address] [place], [place] [address] [facility] Lipid panel reflex to direct LDL (08/10/2014 8:56 AM RESIN MIXER) P athologist Signature Cholesterol 153 <200 mg/dL [facility] Comment: LDL Cholesterol is the primary guide to therapy. The NCEP recommends further evaluation of: patients with cholesterol greater than 200 mg/dL if additional risk facto rs are present, cholesterol greater than 240 mg/dL, triglycerides greater than 1 50 mg/dL, or HDL less than 40 mg/dL. Triglycerides 79 0 - 150 mg/dL [place] [facility] HDL Cholesterol 61 >50 mg/dL [place] [facility] LDL Cholesterol Calculated 76 0 - 129 mg/dL [facility] Comment: LDL Cholesterol is the primary guide to therapy: LDL-cholesterol goal in high risk patients is <100 mg/dL and in very high risk patients is <70 mg/dL. VLDL-Cholesterol 16 0 - 30 mg/dL [place] A[facility] Cholesterol/HDL Ratio 2.5 0.0 - 5.0 [facility] Specimen Anatomical Collection Method Collection Time Receive d Time (Source) Location / / Volume Laterality Blood specimen 08/10/2014 8:56 AM 015 8:57 (specimen) RESIN MIXER AM RESIN MIXER Selma Good APRN, CNP LAB - BLOOD ORDERABLES Performing Organization Address City/State/ZIP Code Phon e Number [facility] [address] [place] [address] documented in this encounter Visit Diagnoses Diagnosis Type 2 diabetes, HbA1c goal < 7% (H) Type II or unspecified type diabetes sukhdev litus without mention of complication, not stated as uncontrolled Hyperlipidemia LDL goal <100 Other and unspecified hyperlipidemia Hypertension goal BP (blood pressure) < 130/80 Unspecified essential hypertension documented in this encounter Care Teams Ship[employer] Carpenter Relationship Specialty Start Date End Date Selma Good APRN CNP PCP - General 04/09/08 04/07/15 [address] [facility] [place] [id number] documented as of this encounter
--- OUTSIDE RECORDS SUMMARY | 2022-01-17 22:15 | XMS_ITS | Encounter Summary ---
:1965 Author Organization [place] Address [address] [place] [address] Care Team Providers Name Role Phone Selma Good APRN COMPOTYPE OPERATOR Primary Care Provider [phone] Encounter Details Date Type Department Care Team Description 06/08/2014 Orders Only [facility] Eag an Hyperlipidemia LDL goal <100 [address] [place] [address] Social History Tobacco Use Types Packs/Day [...] 08/08/2019 relatives? How often do you attend anglican or methodist Patient refused 08/08/2019 services? Do you belong to any clubs or organizations such as No 08/08/2019 anglican groups, unions, fraternal or athletic groups, or [...] Name Priority Date/Time Associated Diagnosis Comme nts LIPID REFLEX TO Routine 06/08/2014 8:40 AM Hyperlipidemia LDL goal Results for this DIRECT LDL PANEL EPIC RADIANT ANALYST <100 procedure a re in the results section. documented in this encounter Results Lipid panel reflex to direct LDL (06/08/2014 8:40 AM EPIC RADIANT ANALYST) P athologist Signature Cholesterol 197 <200 mg/dL [facility] Comment: LDL Cholesterol is the primary guide to therapy. The NCEP recommends further evaluation of: patients with cholesterol greater than 200 mg/dL if additional risk facto rs are present, cholesterol greater than 240 mg/dL, triglycerides greater than 1 50 mg/dL, or HDL less than 40 mg/dL. Triglycerides 77 0 - 150 mg/dL [facility] Comment: Fasting specimen HDL Cholesterol 57 >50 mg/dL [facility] LDL Cholesterol Calculated 125 0 - 129 mg/dL [facility] Comment: LDL Cholesterol is the primary guide to therapy: LDL-cholesterol goal in high risk patients is <100 mg/dL and in very high risk patients is <70 mg/dL. VLDL-Cholesterol 15 0 - 30 mg/dL LATAS[facility] [place] Cholesterol/HDL Ratio 3.5 0.0 - 5.0 [facility] Specimen Anatomical Collection Method Collection Time Receive d Time (Source) Location / / Volume Laterality Blood specimen 06/08/2014 8:40 AM 014 8:45 (specimen) EPIC RADIANT ANALYST AM EPIC RADIANT ANALYST Selma Good APRN, CNP LAB - BLOOD ORDERABLES Performing Organization Address City/State/ZIP Code Phon e Number [facility] [address] [place] [address] [facility] [address], [place] [address] documented in this encounter Visit Diagnoses Diagnosis Hyperlipidemia LDL goal <100 Other and unspecified hyperlipidemia documented in this encounter Care Teams Director Of Sports Performance Relationship Specialty Start Date End Date Selma Good APRN COMPOTYPE OPERATOR PCP - General 04/09/08 04/07/15 [address] [facility] [place] [address] documented as of this encounter
--- OUTSIDE RECORDS SUMMARY | 2022-01-17 22:15 | XMS_ITS | Encounter Summary ---
:1965 Author Organization [facility] Address [address] [place] [address] Care Team Providers Name Role Phone Selma Good APRN RF TEST TECHNICIAN Primary Care Provider [phone] Reason for Visit Reason Comments Diabetes Encounter Details Date Type Department Care Team Description 10/27/2013 Office Visit [facility] Florent[place], Type 2 diab etes, HbA1C goal < 7% (H) (Primary Dx); [place] APRN Fibromyalgia; [address] [facility] OME (otitis media with effusion), bilate [place] [phone] [facility] [phone] [facility] [place] [address] Social History Tobacco Use [...] How often do you attend adventism or roman catholic Patient refused 08/08/2019 services? [...] Sign Reading Time Taken Comments Blood Pressure 86/50 10/27/2013 8:53 AM CDT Pulse 68 10/27/2013 8:53 AM CDT Temperature 36.8 ??C (98.3 ??F) 10/27/2013 8:53 AM CDT Respiratory Rate 16 10/27/2013 8:53 AM CDT Oxygen Saturation - - Inhaled Oxygen Concentration - - Weight 64 kg (141 lb) 10/27/2013 8:53 AM CDT Height 157.5 cm (5' 2) 10/27/2013 8:53 AM CDT Body Mass Index 25.79 10/27/2013 8:53 AM CDT documented in this encounter Patient Instructions Patient InstructionsSelma Good NP - 10/27/2013 9:36 AM CDT Continue with the 1500 mg metformin a day. Continue the flonase nasal spray and ADD an over the counter claritin-D or zyrtec-D. Give this 1 wk,let me know if it doesn't work. Ask your pharmacist to request a refill for the lancets and I can fax in a refill for that. RETURN TO CLINIC in May for follow up visit. documented in this encounter Progress Notes Selma Good NP - 10/27/2013 8:52 AM CDT SUBJECTIVE: Megan Choi is a 48 year old female who presents to clinic today for the following health issues: Continues to lose weight with diet. Not continuing to try to lose weight. She had decreased her metformin to 1500 and since then, denies symptoms of low BG. Diabetes Follow-up ?? Patient is checking blood sugars: once to twice daily,has log book with today ?? Diabetic concerns: None ?? Symptoms of hypoglycemia (low blood sugar): weak, lethargy,felt like she is getting too much Metformin,decreased it by 500mg per AMS. ?? Paresthesias (numbness or burning in feet) or sores: No ?? Diabetic eye exam within the last year: Yes Hyperlipidemia Follow-Up ?? Rate your low fat/cholesterol diet?: good ?? Taking statin? Yes, no muscle aches from statin ?? Other lipid medications/supplements?: none Hypertension Follow-up ?? Outpatient blood pressures off and on,within normal range per pt. ?? Low Salt Diet: no added salt ?? 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 Problems taking medications regularly: No ?? Medication side effects: none ?? Diet: low salt and low fat/cholesterol History Substance Use Topics ??? Smoking status: Never Smoker ??? Smokeless tobacco: Never Used ??? Alcohol Use: Yes Comment: Rare Problem list and histories reviewed & adjusted, as indicated. Additional history: as documented Patient Active Problem List Diagnosis ??? Migraine headache ??? GERD (Gastroesophageal Reflux Disease) ??? Obesity ??? Family History of DE (Myocardial Infarction) ??? Cervical Pain ??? Insomnia ??? Upper Back Pain ? ? Type 2 Diabetes, HbA1c Goal < 7% ? ? Hyperlipidemia LDL Goal <100 ? ? Hypertension Goal BP (Blood Pressure) < 130/80 ??? Seasonal allergic rhinitis ??? Vulvar dystrophy ??? Menorrhagia ??? LBP (low back pain) ??? Major depressive disorder, recurrent ??? Fibromyalgia Past Surgical History Procedure Laterality Date ??? C spinal fusion,ant,ea adnl level 2005 L5, S1, Repeated in 2005 ??? C spinal fusion,ant,ea adnl level 2006 SI joints ??? C spinal fusion,ant,ea adnl level 2000 C5-C7 fused ??? section History Substance Use Topics ??? Smoking status: Never Smoker ??? Smokeless tobacco: Never Used ??? Alcohol Use: Yes Comment: Rare Family History Problem Relation Age of Onset ??? Cardiovascular Mother DE age 72 ??? Cardiovascular Father DE early 40s, subsequent bipass ??? Diabetes Mother [...] Grandmother ??? Lipids Paternal Grandfather ??? Kidney disease Mother 70 ??? Kidney disease Brother 55 ROS: Constitutional, HEENT, cardiovascular, pulmonary, gi and gu systems are negative, except as otherwise noted. OBJECTIVE: BP 86/50 Pulse 68 Temp(Src) 98.3 ??F (36.8 ??C) (Oral) Resp 16 Ht 5' 2 (1.575 m) Wt 141 lb (63.957 kg) BMI 25.78 kg/m2 Body mass index is 25.78 kg/(m^2). GENERAL APPEARANCE: healthy, alert and no distress EYES: Eyes grossly normal to inspection, PERRL and conjunctivae and sclerae normal HENT: ear canals and TM's with air/fluid interface and nose and mouth without ulcers or lesions NECK: no adenopathy, no asymmetry, masses, or scars and thyroid normal to palpation RESP: lungs clear to auscultation - no rales, rhonchi or wheezes CV: regular rates and rhythm, normal S1 S2, no S3 or S4 and no murmur, click or rub SKIN: no suspicious lesions or rashes ASSESSMENT/PLAN: (250.00) Type 2 diabetes, HbA1C goal < 7% (primary encounter diagnosis) Comment: doing very well. Her A1C did come up slightly, but still quite low. Will stay on 1500 mg daily and follow up in 6 mo Plan: Comprehensive metabolic panel, Lipid panel reflex to direct LDL, Hemoglobin A1c, metFORMIN (GLUCOPHAGE) 1000 MG tablet, DISCONTINUED: metFORMIN (GLUCOPHAGE) 1000 MG tablet (729.1) Fibromyalgia Comment: symptoms well managed Plan: DULoxetine (CYMBALTA) 30 MG capsule (381.4) OME (otitis media with effusion), bilateral Comment: add antihistamine with decongestant Plan: Patient Instructions Continue with the 1500 mg metformin a day. Continue the flonase nasal spray and ADD an over the counter claritin-D or zyrtec-D. Give this 1 wk,let me know if it doesn't work. Ask your pharmacist to request a refill for the lancets and I can fax in a refill for that. RETURN TO CLINIC in May for follow up visit. Selma Good NP, BIBLE WORKER [facility] documented in this encounter Nursing Notes Charlotte Mark CMA - 10/27/2013 9:13 AM CDT Chief Complaint Patient presents with ??? Diabetes Initial BP 86/50 Pulse 68 Temp(Src) 98.3 ??F (36.8 ??C) (Oral) Resp 16 Ht 5' 2 (1.575 m) Wt 141 lb (63.957 kg) BMI 25.78 kg/m2 Estimated body mass index is 25.78 kg/(m^2) as calculated from the following: Height as of this encounter: 5' 2 (1.575 m). Weight as of this encounter: 141 lb (63.957 kg). BP completed using cuff size: regular Charlotte Mark CMA(AAMA) documented in this encounter Plan of Treatment Not on filedocumented as of this encounter Procedures Procedure Name Priority Date/Time Associated Comments Diagnosis LIPID REFLEX TO DIRECT Routine 10/27/2013 8:57 AM Type 2 diabe shirley, Results for this LDL PANEL CDT HbA1C goal < 7% (H) procedur e are in the results section. HEMOGLOBIN A1C Routine 10/27/2013 8:57 AM Type 2 diabetes, Res ults for this CDT HbA1C goal < 7% (H) procedur e are in the results section. COMPREHENSIVE Routine 10/27/2013 8:57 AM Type 2 diabetes, Resu lts for this METABOLIC PANEL CDT HbA1C goal < 7% (H) proce dure are in the results section. documented in this encounter Results Hemoglobin A1c (10/27/2013 8:57 AM CDT) athologist Signature Hemoglobin A1C 6.0 4.3 - 6.0 [facility] Specimen Anatomical Collection Method Collection Time Receive d Time (Source) Location / / Volume Laterality Blood specimen 10/27/2013 8:57 AM 014 8:58 (specimen) CDT AM CDT Selma Good APRN RF TEST TECHNICIAN LAB - BLOOD ORDERABLES Performing Organization Address City/State/ZIP Code Phon e Number [facility] [address] [place] [address] (ABNORMAL) Lipid panel reflex to direct LDL (10/27/2013 8:57 AM CDT) athologist Signature Cholesterol 106 <200 mg/dL [facility] Comment: LDL Cholesterol is the primary guide to therapy. The NCEP recommends further evaluation of: patients with cholesterol greater than 200 mg/dL if additional risk facto rs are present, cholesterol greater than 240 mg/dL, triglycerides greater than 1 50 mg/dL, or HDL less than 40 mg/dL. Triglycerides 39 0 - 150 mg/dL [facility] HDL Cholesterol 29 (L) >50 mg/dL [facility] LDL Cholesterol Calculated 69 0 - 129 mg/dL [facility] Comment: LDL Cholesterol is the primary guide to therapy: LDL-cholesterol goal in high risk patients is <100 mg/dL and in very high risk patients is <70 mg/dL. VLDL-Cholesterol 8 0 - 30 mg/dL [facility] Cholesterol/HDL Ratio 3.7 0.0 - 5.0 [facility] Specimen Anatomical Collection Method Collection Time Receive d Time (Source) Location / / Volume Laterality Blood specimen 10/27/2013 8:57 AM 014 8:58 (specimen) CDT AM CDT Selma Good APRN RF TEST TECHNICIAN LAB - BLOOD ORDERABLES Performing Organization Address City/State/ZIP Code Phon e Number [facility] [address] [place] [address] (ABNORMAL) Comprehensive metabolic panel (10/27/2013 8:57 AM CDT) athologist Signature Sodium 143 133 - 144 [facility] mmol/L [facility] Potassium 3.8 3.4 - 5.3 [facility] mmol/L [facility] Chloride 107 94 - 109 [facility] mmol/L [facility] Carbon Dioxide 26 20 - 32 [facility] mmol/L [facility] Anion Gap 10 6 - 17 [facility] mmol/L [facility] Glucose 100 (H) 60 - 99 [facility] mg/dL [facility] Comment: Fasting specimen Urea Nitrogen 14 7 - 30 mg/dL [facility] Creatinine 0.64 0.52 - 1.04 mg/dL [facility] GFR Estimate >90 >60 mL/min/1.7m2 [facility] GFR Estimate If Black >90 >60 mL/min/1.7m2 [facility] Calcium 8.9 8.5 - 10.4 mg/dL [facility] Bilirubin Total 0.4 0.2 - 1.3 mg/dL [facility] Albumin 3.4 (L) 3.9 - 5.1 g/dL [facility] Comment: Reference range changed on 02/10. Protein Total 6.5 (L) 6.8 - 8.8 g/dL [facility] Comment: As of 07, reference range reflects plasma specimen type. Alkaline Phosphatase 86 40 - 150 U/L [facility] ALT 24 0 - 50 U/L [facility] EA ALESSANDRO AST 20 0 - 45 U/L [facility] ALESSANDRO Specimen Anatomical Collection Method Collection Time Receive d Time (Source) Location / / Volume Laterality Blood specimen 10/27/2013 8:57 AM 014 8:58 (specimen) CDT AM CDT Selma Good APRN, CNP LAB - BLOOD ORDERABLES Performing Organization Address City/State/ZIP Code Phon e Number [facility] [address] [facility] [place] [address] documented in this encounter Visit Diagnoses Diagnosis Type 2 diabetes, HbA1c goal < 7% (H) - P rimary Type II or unspecified type diabetes sukhdev litus without mention of complication, not stated as uncontrolled Fibromyalgia Mylagia and myositis, unspecified OME (otitis media with effusion), bilate ral documented in this encounter Care Teams Power Mule Operator Relationship Specialty Start Date End Date Selma Good APRN RF TEST TECHNICIAN PCP - General 04/09/08 04/07/15 [address] [facility] [place] [address] documented as of this encounter
--- OUTSIDE RECORDS SUMMARY | 2022-01-17 22:15 | XMS_ITS | Encounter Summary ---
:1965 Author Organization [facility] Address [address] [place] [address] Care Team Providers Name Role Phone Selma Good APRN GROUNDS PERSON Primary Care Provider [phone] Reason for Visit Reason Onset Date Comments Refill Request 04/11/2014 ACCU CHEK test strp Encounter Details Date Type Department Care Team Description 04/11/2014 Refill [facility] Eag Selma Anthony Refill Request (ACCU 1440 [employer] [facility] J, SEAN GROUNDS PERSON CHEK test strp) [place] [id number] [facility] [phone] [facility] [place] [phone] (Wo rk) Social History Tobacco Use Types [...] How often do you attend anabaptism or gnosticism Patient refused 08/08/2019 services? Do [...] encounter Miscellaneous Notes Telephone Encounter - Bambi Morales RN - 04/15/2014 2:10 PM CST Medication refill request for: glucose blood test strips (ACCU-CHEK JANICE) strip Si strip by In Vitro route 2 times daily Last ordered on: 05/30/2013 Quantity: 100 Refills: PRN Last office visit: 03/25/2014 Ok to refill per Medication Refill Protocol. Bambi Morales RN NILE DETENTION OFFICER Telephone Encounter - Tima Melchor - 04/11/2014 4:36 PM CDT Last office visit:03/25/14 Last refill:09/09/13 Future visit:none documented in this encounter Plan of Treatment Not on filedocumented as of this encounter Visit Diagnoses Diagnosis Type 2 diabetes, HbA1c goal < 7% (H) Type II or unspecified type diabetes sukhdev litus without mention of complication, not stated as uncontrolled documented in this encounter Care Teams Manager State Relationship Specialty Start Date End Date Danilo-Selma Mccoy, STEAM ROOM ATTENDANT GROUNDS PERSON PCP - General 04/09/08 04/07/15 [address] [facility] [place] [address] documented as of this encounter
--- OUTSIDE RECORDS SUMMARY | 2022-01-17 22:15 | XMS_ITS | Encounter Summary ---
:1965 Author Organization [place] Address [address] [place] [address] Care Team Providers Name Role Phone Selma Good APRN ENVIRONMENTAL REMEDIATION CONSULTANT Primary Care Provider [phone] Reason for Visit Reason Onset Date Comments Refill Request 03/14/2013 test strips Encounter Details Date Type Department Care Team Description 03/14/2013 Refill [facility] Eag Selma Anthony Refill Request (test 14[address] [facility] J, RELIEF WORKER ENVIRONMENTAL REMEDIATION CONSULTANT strips) [place] [phone] [address] [facility] [phone] [facility] [place] [address] (Wo rk) Social History [...] How often do you attend yazidi or jew Patient refused 08/08/2019 services? Do [...] this encounter Miscellaneous Notes Telephone Encounter - Lennie Morales - 03/14/2013 12:10 PM CDT Med request: Test strips Date of last related OV: 12/10/12 Date of last refill: 05/28/12 Approved per standing orders Lennie Morales RN documented in this encounter Plan of Treatment Not on filedocumented as of this encounter Visit Diagnoses Diagnosis Type 2 diabetes, HbA1c goal < 7% (H) - P rimary Type II or unspecified type diabetes sukhdev litus without mention of complication, not stated as uncontrolled documented in this encounter Care Teams Cma Or Lpn Relationship Specialty Start Date End Date Danilo-Selma Mccoy, RELIEF WORKER ENVIRONMENTAL REMEDIATION CONSULTANT PCP - General 04/09/08 04/07/15 60[address] [facility] [place] [id number] documented as of this encounter
--- OUTSIDE RECORDS SUMMARY | 2022-01-17 22:15 | XMS_ITS | Encounter Summary ---
:1965 Author Organization [facility] Address [address] [place] [address] Care Team Providers Name Role Phone Selma Good APRN REAL ESTATE LOAN PROCESSOR Primary Care Provider [phone] Reason for Visit Reason Onset Date Comments Refill Request 05/05/2014 Accu-Chek multi Clix lancets Encounter Details Date Type Department Care Team Description 05/05/2014 Refill [facility] Eag Selma Anthony Refill Request [address] [address] SEAN Angeles CNP (Accu-Chek multi Clix [place] [phone] [place] [address] [facility] [phone] [facility] [place] [address] (Wo rk) [...] often do you attend oriental orthodox or samaritan Patient refused 08/08/2019 services? Do you belong to any clubs or organizations such as No 08/08/2019 oriental orthodox groups, unions, fraFarmia or athletic groups, or school groups? How [...] this encounter Miscellaneous Notes Telephone Encounter - Graciela Barone, RN - 05/05/2014 3:55 PM CST Medication refill request for: Accu-Chek Multi Clix lancets Last ordered on: 01/26/10 Quantity: 100 Refills: prn Last office visit: 04/29/14 At last diabetic office appointment, patient reports checking blood sugars 1-2 times daily. Recent labs: A1C 5.9 03/25/2014 A1C 6.0 10/27/2013 RX refilled per RN susy. Iain Barone RN ERNATOR documented in this encounter Plan of Treatment Not on filedocumented as of this encounter Visit Diagnoses Diagnosis Type 2 diabetes, HbA1c goal < 7% (H) - P rimary Type II or unspecified type diabetes sukhdev litus without mention of complication, not stated as uncontrolled documented in this encounter Care Teams Body Service Team Member Relationship Specialty Start Date End Date Danilo-Selma Mccoy, ACTUARIAL TRAINEE REAL ESTATE LOAN PROCESSOR PCP - General 04/09/08 04/07/15 80[address] [facility] [place] [address] documented as of this encounter
--- OUTSIDE RECORDS SUMMARY | 2022-01-17 22:15 | XMS_ITS | Encounter Summary ---
:1965 Author Organization [place] Address [address] [place] [address] Care Team Providers Name Role Phone Selma Good APRN, CNP Primary Care Provider [phone] Reason for Visit Reason Onset Date Comments Refill Request 08/17/2014 SIMVASTATIN 20MG Refill Request 08/17/2014 LISINOPRIL 5MG Encounter Details Date Type Department Care Team Description 08/17/2014 Refill [facility] Eag Selma Anthony Refill Request [address] SEAN Angeles CNP (SIMVASTATIN 20MG); [place] [phone] [address] [facility] Refill Request [phone] NASIR ANDRE (LISINOPRIL 5MG) [place] [id number] (Wo rk) Social History [...] How often do you attend yazdanism or sikhism Patient refused 08/08/2019 services? Do [...] this encounter Miscellaneous Notes Telephone Encounter - Selma Good NP - 08/18/2014 11:24 AM CDT Duefor follow up OV, refilled x 1 mo Telephone Encounter - Day Greene RN - 08/17/2014 11:26 AM CDT Please advise on refill as pt was to follow up in a month from 06/09/14 appt but has not. Labs recently done for lipids Mychart sent requesting follow up appt Day Greene RN, BSN Telephone Encounter - Marisa Matthew - 08/17/2014 9:42 AM CDT Refill request for: SIMVASTATIN 20 mg Last prescribed by provider: Date: 05/30/2013 Quantity 90 w/ PRN refills Last filled through pharmacy: Date: 02/19/2014 Pharmacy Comments: LUZ ELENA Matthew RT(R) Refill request for: LISINOPRIL 5 mg Last prescribed by provider: Date: 05/30/2013 Quantity 90 w/ PRN refills Last filled through pharmacy: Date: 02/19/2014 Pharmacy Comments: LUZ ELENA Matthew RT(R) documented in this encounter Plan of Treatment Not on filedocumented as of this encounter Visit Diagnoses Diagnosis Hyperlipidemia LDL goal <100 - Primary Other and unspecified hyperlipidemia Hypertension goal BP (blood pressure) < 130/80 Unspecified essential hypertension documented in this encounter Care Teams Vegetable Tester Relationship Specialty Start Date End Date Danilo-Selma Mccoy, ADULT AND PEDIATRIC NEUROLOGIST PUGGER HELPER PCP - General 04/09/08 04/07/[address] [facility] [place], [place] [id number] documented as of this encounter
--- OUTSIDE RECORDS SUMMARY | 2022-01-17 22:15 | XMS_ITS | Encounter Summary ---
:1965 Author Organization [place] Address [address] [place] [address] Care Team Providers Name Role Phone Selma Good APRN [facility] Primary Care Provider [phone] Encounter Details Date Type Department Care Team Description 05/27/2013 Radiant Appointment [facility] Lexii Good cancer Pino Angeles, WASTE WATER TREATMENT PLANT OPERATOR screening [address] [facility] ,[address] [place], [place], [place] [phone] Social History Tobacco Use Types Packs/Day [...] How often do you attend moravian or samaritan Patient refused 08/08/2019 services? Do [...] Procedure Name Priority Date/Time Associated Diagnosis Comme [facility] SCREENING Routine 05/27/2013 1:54 PM Breast cancer Results for this DIGITAL BILATERAL LEAKAGE TESTER screening procedure are in the results section. documented in this encounter Results Mammo Screening digital (bilat) (05/27/2013 1:54 PM LEAKAGE TESTER) Anatomical Region Laterality Modality Breast Bilateral Mammography Specimen (Source) Anatomical Location Collection Method / Collectio n Time Received Time / Laterality Volume Impressions 05/28/2013 9:50 AM LEAKAGE TESTER IMPRESSION: BI-RADS CATEGORY: 1 - ??NEGATIVE. RECOMMENDED FOLLOW-UP: Annual Mammograph y. Exam results letter mailed to patient. JOSE DAO MD Narrative 05/28/2013 9:50 AM LEAKAGE TESTER SCREENING MAMMOGRAM, BILATERAL, DIGITAL w/CAD - 05/27/2013 1:54 PM BREAST SYMPTOMS: No current breast compl aints. COMPARISON: ??04/21/2008. BREAST DENSITY: Scattered fibroglandular densities. ?? COMMENTS: No findings of suspicion for m alignancy. ? Procedure Note Jose Dao MD - 05/28/2013For matting of this note might be different from the original. SCREENING MAMMOGRAM, BILATERAL, DIGITAL w/CAD - 05/27/2013 1:54 PM BREAST SYMPTOMS: No current breast compl aints. COMPARISON: 04/21/2008. BREAST DENSITY: Scattered fibroglandular densities. COMMENTS: No findings of suspicion for m alignancy. IMPRESSION IMPRESSION: BI-RADS CATEGORY: 1 - NEGATI VE. RECOMMENDED FOLLOW-UP: Annual Mammograph y. Exam results letter mailed to patient. JOSE DAO MD Selma Good APRN, CNP IMMel MAMMOGRAPHY ORDERAB LES documented in this encounter Visit Diagnoses Diagnosis Breast cancer screening Breast screening, unspecified documented in this encounter Care Teams Supervisor Firearms Relationship Specialty Start Date End Date Selma Good APRN MEAT PULLER PCP - General 04/09/08 04/07/15 [address] [address] [place], [place] [address] documented as of this encounter
--- OUTSIDE RECORDS SUMMARY | 2022-01-17 22:15 | XMS_ITS | Encounter Summary ---
:1965 Author Organization [place] Address [address] [place] [address] Care Team Providers Name Role Phone Selma Good APRN BARREL SCRAPER Primary Care Provider [phone] Reason for Referral Specialty Diagnoses / Procedures Referred By Contact Refer red To Contact Rayo Whitehead DPM [address] [place] [address] Referral ID Status Reason Start Date Expiration Date Visits Requ ested Visits Authorized Reason for Visit Reason Comments Musculoskeletal Problem left great toe- possible fun anette. Diabetic foot check. Encounter Details Date Type Department Care Team Description 02/21/2013 Office Visit [facility] Rayo Whitehead Type II or unspecified type diabetes mellitus without mention of complication, not stated as uncontrolled (Primary Dx); Pino Jacome DPM Contusion of toe [address] [place] [address] E [phone] [address] [place], [place] [address] Social History Tobacco Use Types Packs/Day Years [...] How often do you attend religion or latter day Patient refused 08/08/2019 services? Do you belong to any clubs or organizations such as No 08/08/2019 religion groups, mangofizz jobss, fraternal or athletic groups, or school groups? [...] Reading Time Taken Comments Blood Pressure 110/60 02/21/2013 2:28 PM CDT Pulse - - Temperature - - Respiratory Rate - - Oxygen Saturation - - Inhaled Oxygen Concentration - - Weight 70.8 kg (156 lb) 02/21/2013 2:28 PM CDT Height 157.5 cm (5' 2) 02/21/2013 2:28 PM CDT Body Mass Index 28.53 02/21/2013 2:28 PM CDT documented in this encounter Progress Notes Rayo Whitehead, DPM - 03/03/2013 8:51 PM CDT Subjective: Patient is seen today as a new pt self referral for diabetic foot examination. Pt reports a past injury to her great toenail 1 month ago. Pt is c/o of discoloration under the nail itself. Denies F/C/N/V Denies any acute complaints. Past Medical History Diagnosis Date ??? Dvt femoral (deep venous thrombosis) 04/17 post surgical, stopped coumadin 01/16 ??? Diabetes mellitus Past Surgical History Procedure Date ??? C spinal fusion,ant,ea adnl level 2004 L5, S1, Repeated in 2005 ??? C spinal fusion,ant,ea adnl level 2006 SI joints ??? C spinal fusion,ant,ea adnl level 2000 C5-C7 fused ??? section Family History Problem Relation Age of Onset ??? Cardiovascular Mother [place] age 72 ??? Cardiovascular Father [place] early 40s, subsequent bipass ??? Diabetes Mother [...] Mother 70 ??? Kidney disease Brother 55 History Substance Use Topics ??? Smoking status: Never Smoker ??? Smokeless tobacco: Never Used ??? Alcohol Use: Yes Rare Objective: Pulses are palpable DP and PT b/l foot, sensation to light touch and using 5.07 Lyons-Tanisha wire is present to both feet. Skin is thin and atrophic, temp and turgor slightly diminished. No evidence of infection, ulceration, or drainage. Nails are thick, elongated, dystrophic, with subungual debris noted. Assessment: Diabetes Mellitus Contusion to great toenail Plan: Discussed etiology and treatment options. Contusion appears to be healing/growing out. Continue to monitor. Discussed appropriate shoewear and diabetic foot education. Suggested not going barefoot, checking feet once per day, not soaking excessively, and drying in- between toes. Wrote Rx for extra-depth shoesand accommodative insoles. F/U at least once per year. documented in this encounter Nursing Notes 02/21/2013 2:30 PM CDT >> LIANA Fremean Feb 21, 2013 2:29 PM Patient presents with: Musculoskeletal Problem - left great toe- possible fungus.Diabetic foot check. documented in this encounter Plan of Treatment Scheduled Referrals Name Type Priority Associated Diagnoses Order S chedule ORTHOTICS REFERRAL Referral Routine Type II or unspecified type Ordered: 02/21/2013 diabetes mellitus without mention of complication, not stated as uncontrolled documented as of this encounter Visit Diagnoses Diagnosis Type II or unspecified type diabetes sukhdev litus without mention of complication, not stated as uncontrolled - Primary Contusion of toe documented in this encounter Care Teams Canine Service Teacher Relationship Specialty Start Date End Date Danilo-Selma Mccoy, GENERAL PURCHASING AGENT BARREL SCRAPER PCP - General 04/09/08 04/07/15 [address] [facility] [place] [id number] documented as of this encounter
--- OUTSIDE RECORDS SUMMARY | 2022-01-17 22:15 | XMS_ITS | Encounter Summary ---
:1965 Author Organization [facility] Address [address] [place] [address] Care Team Providers Name Role Phone Selma Good APRN [facility] Primary Care Provider [phone] Reason for Visit Reason Comments Depression Encounter Details Date Type Department Care Team Description 04/29/2014 Office Visit [facility] Florentino, Anxiety (Pr imary Dx); Pino Angeles APRN Insomnia; [address] [facility] Major depressive disorder, recurrent (H) ; [place] [phone] [facility] Need for prophylactic vaccin ation and inoculation against influenza; [phone] [facility] Need for prophylactic vaccination agains t Streptococcus pneumoniae (pneumococcus); [place] [address] Type 2 diabetes, HbA1C goal < 7% (H); [phone] Hypertension go al BP (blood pressure) < 130/80; (Work) Hyperlipidemia LDL goal <100 Social History Tobacco Use Types Packs/Day Years [...] How often do you attend taoist or episcopalian Patient refused 08/08/2019 services? Do [...] Sign Reading Time Taken Comments Blood Pressure 86/54 04/29/2014 1:55 PM JOINT FINISHER Pulse 76 04/29/2014 1:55 PM JOINT FINISHER Temperature 35.4 ??C (95.7 ??F) 04/29/2014 1:55 PM JOINT FINISHER Respiratory Rate 16 04/29/2014 1:55 PM JOINT FINISHER Oxygen Saturation - - Inhaled Oxygen Concentration - - Weight 67.9 kg (149 lb 9.6 oz) 04/29/2014 1:55 PM JOINT FINISHER Height - - Body Mass Index 27.36 10/27/2013 8:53 AM CDT documented in this encounter Patient Instructions Patient InstructionsSelma Good NP - 04/29/2014 2:26 PM JOINT FINISHER STOP the lisinopril AND the simvastatin. Schedule a fasting lab only in about 6 wks to recheck. Check your blood pressure in about 2 wks here with a nurse only or at your local pharmacy and mychart me. Continue the celexa for anxiety and depression symptoms. I have sent in a refill of the medications. Start the sleep medication tonight and we discussed possible side effects to this medication. T FINISHER documented in this encounter Progress Notes Selma Good NP - 04/29/2014 1:54 PM CST SUBJECTIVE: Megan Choi is a 49 year old female who presents to clinic today for the following health issues: Anxiety Follow-Up ?? Status since last visit: Improved ?? Other associated symptoms:None ?? Complicating factors: Significant life event: No Current substance abuse: None Depression symptoms: Yes-reason for Cymbalta No flowsheet data found. GAD7 She does feel the citalopram is helping with her anxiety, although she does still have difficulty falling and staying asleep. Because of this, she is tired the rest of the day. She notes marked stressors in her life including her kids whom live with her. She has a difficult time creating boundaries with them and she notes she gets no support from her and is considering moving out. Also, chronic daily headaches, she feels is worsening and worsens with stress. Also, hx of diabetes. She is on BP medication, but would like to stop this as well as simvistatin. Last LDL is 69, BP always very low. ?? Amount of exercise or physical activity: None in the winter,more in the summer with grandkids ?? Problems taking medications regularly: No ?? Medication side effects: none ?? Diet: regular (no restrictions) History Substance Use Topics ??? Smoking status: Never Smoker ??? Smokeless tobacco: Never Used ??? Alcohol Use: Yes Comment: Rare Problem list and histories reviewed & adjusted, as indicated. Additional history: as documented Patient Active Problem List Diagnosis ??? Migraine headache ??? GERD (Gastroesophageal Reflux Disease) ??? Obesity ??? Family History of PA (Myocardial Infarction) ??? Cervical Pain ??? Insomnia ??? Upper Back Pain ? ? Type 2 Diabetes, HbA1c Goal < 7% ? ? Hyperlipidemia LDL Goal <100 ? ? Hypertension Goal BP (Blood Pressure) < 130/80 ??? Seasonal allergic rhinitis ??? Vulvar dystrophy ??? Menorrhagia ??? LBP (low back pain) ??? Major depressive disorder, recurrent ??? Fibromyalgia ??? Anxiety Past Surgical History Procedure Laterality Date ??? [...] Relation Age of Onset ??? Cardiovascular Mother [place] age 72 ??? Cardiovascular Father [place] early 40s, subsequent bipass ??? Diabetes Mother [...] negative, except as otherwise noted. OBJECTIVE: BP 86/54 Pulse 76 Temp(Src) 95.7 ??F (35.4 ??C) (Tympanic) Resp 16 Wt 149 lb 9.6 oz (67.858 kg) Body mass index is 27.36 kg/(m^2). GENERAL APPEARANCE: healthy, alert and no distress PSYCH: mentation appears normal and affect normal/bright ASSESSMENT/PLAN: 1. Insomnia Falling and staying asleep is an issue. Briefly discussed sleep hygiene and the role of stress on sleep. Will try amitriptyline and may help with headaches. Will start low dose and follow up in 1 mo. - amitriptyline (ELAVIL) 10 MG tablet; Take 1 tablet (10 mg) by mouth At Bedtime Dispense: 90 tablet; Refill: 0 2. Major depressive disorder, recurrent We had a lengthy discussion today about the role of stress and her anxiety and depression. She does have a rather external locus of control and we discussed the role of a therapist and assistance in creating healthy boundaries with her kids. She will continue the citalopram at current dose and follow up in 1 mo for sleep and HAs. - citalopram (CELEXA) 20 MG tablet; Take 1 tablet (20 mg) by mouth daily Dispense: 90 tablet; Refill: 1 3. Anxiety - citalopram (CELEXA) 20 MG tablet; Take 1 tablet (20 mg) by mouth daily Dispense: 90 tablet; Refill: 1 - General Anxiety Disorder Questionnaire (HELGA) 4. Need for prophylactic vaccination and inoculation against influenza - C FLU VACCINE, 3 YRS +, IM (QUADRIVALENT W/PRESERVATIVES) - Seasonal Injectionable Immunization Administration [35063] 5. Need for prophylactic vaccination against Streptococcus pneumoniae (pneumococcus) - PNEUMOVAX - ADULT 6. Type 2 diabetes, HbA1C goal < 7% We reviewed her latest labs and ok to d/c lisinopril and simvistatin at this point and schedule lab only in 6 wks. - JAY NOT PRESCRIBED, INTENTIONAL,; 1 each daily JAY Inhibitor not prescribed due to not needed Dispense: 0 each; Refill: 0 - JAY/ARB NOT PRESCRIBED, INTENTIONAL,; 1 each daily JAY & ARB not prescribed due to not needed 7. Hypertension goal BP (blood pressure) < 130/80 - JAY NOT PRESCRIBED, INTENTIONAL,; 1 each daily JAY Inhibitor not prescribed due to not needed Dispense: 0 each; Refill: 0 - JAY/ARB NOT PRESCRIBED, INTENTIONAL,; 1 each daily JAY & ARB not prescribed due to not needed 8. Hyperlipidemia LDL goal <100 - STATIN NOT PRESCRIBED, INTENTIONAL,; 1 each daily Statin not prescribed intentionally due to not needed Dispense: 0 each; Refill: 0 Patient Instructions STOP the lisinopril AND the simvastatin. Schedule a fasting lab only in about 6 wks to recheck. Check your blood pressure in about 2 wks here with a nurse only or at your local pharmacy and mychart me. Continue the celexa for anxiety and depression symptoms. I have sent in a refill of the medications. Start the sleep medication tonight and we discussed possible side effects to this medication. Selma Good NP [facility] Injectable Influenza Immunization Documentation 1. [...] the person to be vaccinated ever had Guillain-[place] syndrome? No Form completed by self Form reviewed by Charlotte Mark CMA([facility]) T FINISHER documented in this encounter Nursing Notes Charlotte Mark CMA - 04/29/2014 2:03 PM CST Chief Complaint Patient presents with ??? Depression Initial BP 86/54 Pulse 76 Temp(Src) 95.7 ??F (35.4 ??C) (Tympanic) Resp 16 Wt 149 lb 9.6 oz (67.858 kg) Estimated body mass index is 27.36 kg/(m^2) as calculated from the following: Height as of 14: 5' 2 (1.575 m). Weight as of this encounter: 149 lb 9.6 oz (67.858 kg). BP completed using cuff size: regular Charlotte Mark CMA([facility]) T FINISHER documented in this encounter Plan of Treatment Not on filedocumented as of this encounter Visit Diagnoses Diagnosis Anxiety - Primary Anxiety state, unspecified Insomnia Insomnia, unspecified Major depressive disorder, recurrent (H) Major depressive disorder, recurrent epi sode, unspecified Need for prophylactic vaccination and in oculation against influenza Need for prophylactic vaccination agains t Streptococcus pneumoniae (pneumococcus) Need for prophylactic vaccination agains t streptococcus pneumoniae (pneumococcus) Type 2 diabetes, HbA1c goal < 7% (H) Type II or unspecified type diabetes sukhdev litus without mention of complication, not stated as uncontrolled Hypertension goal BP (blood pressure) < 130/80 Unspecified essential hypertension Hyperlipidemia LDL goal <100 Other and unspecified hyperlipidemia documented in this encounter Care Teams Spectrograph Operator Relationship Specialty Start Date End Date Danilo-Selma Mccoy, ROVING TESTER LABORATORY ORDNANCE KEEPER PCP - General 04/09/08 04/07/15 [address] [facility] [place] [id number] documented as of this encounter
--- OUTSIDE RECORDS SUMMARY | 2022-01-17 22:15 | XMS_ITS | Encounter Summary ---
:1965 Author Organization [place] Address [address] [place] [address] Care Team Providers Name Role Phone Selma Good APRN PUTTY TINTER MAKER Primary Care Provider [phone] Encounter Details Date Type Department Care Team Description 08/25/2013 Orders Only [facility] Eag an Screen for colon cancer [address] [place] [address] Social History Tobacco Use Types Packs/Day [...] How often do you attend mandaen or yazidi Patient refused 08/08/2019 services? Do [...] Date/Time Associated Comments Diagnosis FECAL COLORECTAL Routine 08/21/2013 9:00 AM Screen for colon R esults for this CANCER SCREEN FIT CDT cancer procedure are in the results section. documented in this encounter Results Fecal colorectal cancer screen (FIT) (08/21/2013 9:00 AM CDT) Analysis Performed At Patho logist Time Signature Occult Blood Negative NEG [facility] Scn [facility] Specimen Anatomical Collection Method Collection Time Receive d Time (Source) Location / / Volume Laterality Stool specimen 08/21/2013 9:00 AM 014 (specimen) CDT 10:41 AM CDT Selma Good APRN PUTTY TINTER MAKER LAB - STOOLS ORDERABLES Performing Organization Address City/State/ZIP Code Phon e Number [facility] [address] [place], [place] [id number] [place] [address] LABS documented in this encounter Visit Diagnoses Diagnosis Screen for colon cancer Special screening for malignant neoplasm s, colon documented in this encounter Care Teams Coffee Break Attendant Relationship Specialty Start Date End Date Danilo-Selma Mccoy, SPA SUPERVISOR PUTTY TINTER MAKER PCP - General 04/09/08 04/07/[address] [facility] [address] [place], [place] [address] documented as of this encounter
--- OUTSIDE RECORDS SUMMARY | 2022-01-17 22:15 | XMS_ITS | Encounter Summary ---
:1965 Author Organization [facility] Address [address] [place] [address] Care Team Providers Name Role Phone Selma Good APRN ACCOUNTS OFFICER Primary Care Provider Reason for Referral Consultation - Closed Specialty Diagnoses / Procedures Referred By Contact Refer red To Contact Diagnoses OME (otitis media with effusion), bilateral Selma Good, SYLMAR ALLERGY AND ROBOTIC MACHINE TENDER PRODUCTION [facility] ASTHMA [address] [facility] [place] [address] Referral ID Status Reason Start Date Expiration Date Visits Requ ested Visits Authorized [id number] Closed 12/17/2013 06/15/2014 1 1 Reason for Visit Reason Comments RECHECK Encounter Details Date Type Department Care Team Description 12/17/2013 Office Visit [facility] Le Good al lergic rhinitis (Primary Dx); Pino Angeles APRN OME (otitis media with effus ion), bilateral; [address] [facility] Amenorrhea [place] [phone] [address] [facility] [phone] [facility] [place] [address] Social History Tobacco [...] How often do you attend druze or buddhism Patient refused 08/08/2019 services? Do you belong to any clubs or organizations such as No 08/08/2019 druze groups, [employer], frazuuka! or athletic groups, or school groups? How [...] Sign Reading Time Taken Comments Blood Pressure 90/50 12/17/2013 1:49 PM CDT Pulse 76 12/17/2013 1:49 PM CDT Temperature 35.5 ??C (95.9 ??F) 12/17/2013 1:49 PM CDT Respiratory Rate 16 12/17/2013 1:49 PM CDT Oxygen Saturation - - Inhaled Oxygen Concentration - - Weight 65.9 kg (145 lb 4.8 oz) 12/17/2013 1:49 PM CDT Height - - Body Mass Index 26.58 10/27/2013 8:53 AM CDT documented in this encounter Progress Notes Selma Good NP - 12/17/2013 1:47 PM CDT SUBJECTIVE: Megan Choi is a 48 year old female who presents to clinic today for the following health issues: Hx of allergies, has been using claritin-D and flonase. It can trigger neck and headaches. Has been on topomax with mostly good relief in general, but her ears can trigger her HAs. Requesting prescription for allergy medications. Wondering what else she can do for this. LMP: 3 months ago. Problem list and histories reviewed & adjusted, as indicated. Additional history: as documented Patient Active Problem List Diagnosis ??? Migraine headache ??? GERD (Gastroesophageal Reflux Disease) ??? Obesity ??? Family History of [place] (Myocardial Infarction) ??? Cervical Pain ??? Insomnia [...] Relation Age of Onset ??? Cardiovascular Mother [place] age 72 ??? Cardiovascular Father [place] early 40s, subsequent bipass ??? Diabetes Mother [...] negative, except as otherwise noted. OBJECTIVE: BP 90/50 Pulse 76 Temp(Src) 95.9 ??F (35.5 ??C) (Tympanic) Resp 16 Wt 145 lb 4.8 oz (65.908 kg) BMI 26.57 kg/m2 Body mass index is 26.57 kg/(m^2). GENERAL APPEARANCE: healthy, alert and no distress EYES: Eyes grossly normal to inspection, PERRL and conjunctivae and sclerae normal HENT: L and R tms with air fluid interface, injected. Oropharynx clear NECK: no adenopathy, no asymmetry, masses, or scars and thyroid normal to palpation ASSESSMENT/PLAN: (477.9) Seasonal allergic rhinitis (primary encounter diagnosis) Comment: prescription written, referral for ENT regarding fluid behind ears. We briefly discussed possibly needing to do tubes, and will discuss with ENT> she has been doing the nasonex with very little improvement Plan: loratadine-pseudoePHEDrine (CLARITIN-D 24-HOUR) 10-240 MG per tablet (381.4) OME (otitis media with effusion), bilateral Comment: Plan: OTOLARYNGOLOGY REFERRAL (626.0) Amenorrhea Comment: discussed menopause diagnosed after 1 yr without menstrual bleeding. Plan: There are no Patient Instructions on file for this visit. Selma Good NP, UAT TESTER [facility] documented in this encounter Nursing Notes [place] Mark CMA - 12/17/2013 1:54 PM CDT Chief Complaint Patient presents with ??? RECHECK Initial BP 90/50 Pulse 76 Temp(Src) 95.9 ??F (35.5 ??C) (Tympanic) Resp 16 Wt 145 lb 4.8 oz (65.908 kg) BMI 26.57 kg/m2 Estimated body mass index is 26.57 kg/(m^2) as calculated from the following: Height as of 14: 5' 2 (1.575 m). Weight as of this encounter: 145 lb 4.8 oz (65.908 kg). BP completed using cuff size: kait Mark CMA(AAMA) documented in this encounter Miscellaneous Notes Addendum Note - [place] Mark CMA - 12/17/2013 3:40 PM CDT Addended by: FLOR[place] MARK on: 12/17/2013 03:40 PM Modules accepted: Orders, SmartSet documented in this encounter Plan of Treatment Scheduled Referrals Name Type Priority Associated Diagnoses Order S chedule OTOLARYNGOLOGY REFERRAL Referral Routine OME (otitis media with Ordered: 12/17/2013 effusion), bilateral documented as of this encounter Visit Diagnoses Diagnosis Seasonal allergic rhinitis - Primary Allergic rhinitis, cause unspecified OME (otitis media with effusion), bilate ral Amenorrhea Absence of menstruation documented in this encounter Care Teams Forestry Technical Officer Relationship Specialty Start Date End Date Selma Good, ROBOTIC MACHINE TENDER PRODUCTION ACCOUNTS OFFICER PCP - General 04/09/08 04/07/15 [address] [facility] [place] [address] documented as of this encounter
--- OUTSIDE RECORDS SUMMARY | 2022-01-17 22:15 | XMS_ITS | Encounter Summary ---
:1965 Author Organization [facility] Address [address] [place] [address]. [place] [address] Care Team Providers Name Role Phone Selma Good APRN [facility] Primary Care Provider [phone] Reason for Referral Consultation - Closed Specialty Diagnoses / Procedures Referred By Contact Refer red To Contact Diagnoses Dizziness Selma Good [employer] E[employer]RICIAN HELPER [employer] [address] [place] [phone] [place] [id number] Referral ID Status Reason Start Date Expiration Date Visits Requ ested Visits Authorized [id number] Closed 05/30/2013 11/26/2013 1 1 IAL EDUCATION PROFESSOR Reason for Visit Reason Comments Diabetes Encounter Details Date Type Department Care Team Description 05/30/2013 Office Visit [facility] Florentino, Type 2 diab etes, HbA1C goal < 7% (H) (Primary Dx); Pino Angeles APRN Screen for colon cancer; [address] [facility] Screening for diabetic retinopathy; [place] [phone] [place] [address] Screening for diabetic perip heral neuropathy; [phone] [facility] Need for prophylactic vaccination and in oculation against influenza; [place] [id number] Hyperlipidemia LDL goal <100; [phone] GERD (gastroeso phageal reflux disease); (Work) Hypertension goal BP (blood pressure) < 130/80; [phone] Fibromyalgia; (Fax) Migraine headac he; Obesity; Major depressiv e disorder, recurrent (H); Dizziness; OME (otitis med ia with effusion), left [...] How often do you attend sabianism or sikhism Patient refused 08/08/2019 services? Do [...] Sign Reading Time Taken Comments Blood Pressure 90/56 05/30/2013 1:02 PM SPECIAL EDUCATION PROFESSOR Pulse 68 05/30/2013 1:02 PM SPECIAL EDUCATION PROFESSOR Temperature 36.7 ??C (98.1 ??F) 05/30/2013 1:02 PM SPECIAL EDUCATION PROFESSOR Respiratory Rate 16 05/30/2013 1:02 PM SPECIAL EDUCATION PROFESSOR Oxygen Saturation 98% 05/30/2013 1:02 PM SPECIAL EDUCATION PROFESSOR Inhaled Oxygen Concentration - - Weight 67.9 kg (149 lb 11.2 oz) 05/30/2013 1:02 PM SPECIAL EDUCATION PROFESSOR Height 157.5 cm (5' 2) 05/30/2013 1:02 PM SPECIAL EDUCATION PROFESSOR Body Mass Index 27.38 05/30/2013 1:02 PM SPECIAL EDUCATION PROFESSOR documented in this encounter Patient Instructions Patient InstructionsSelma Good NP - 05/30/2013 1:27 PM SPECIAL EDUCATION PROFESSOR We'll check your labs to find explanation for the dizziness. If they are normal, I'd like you to schedule an appointment with ENT. [facility] [phone] In the mean time, try the nasal spray to see if it helps. IAL EDUCATION PROFESSOR documented in this encounter Progress Notes Selma Good NP - 05/30/2013 1:01 PM CST SUBJECTIVE: Megan Choi is a 48 year old female who presents to clinic today for the following health issues: Diabetes Follow-up Patient is checking blood sugars: twice daily. Results are as follows: ?? am - 90 ?? bedtime - 92 ?? Symptoms of hypoglycemia (low blood sugar): dizzy ?? Paresthesias (numbness or burning in feet) or sores: No ?? Diabetic eye exam within the last year: Yes Hyperlipidemia Follow-Up ?? Following low fat/cholesterol diet?: fair ?? Taking Statin or Niaspan? Yes, possible muscle aches from statin ?? Other Supplements?: none Hypertension Follow-up ?? Outpatient blood pressures are being checked at store. Results are running fine. ?? Low Salt Diet: no added salt Depression Follow-Up ?? Status since last visit: stable ?? See PHQ-9 for current symptoms. ?? Other associated symptoms:None ?? Complicating factors: Significant life event: Yes- Granddaughter born last month Current substance abuse: None Anxiety / Panic / Manic symptoms: No PHQ-9 Barbadian PHQ-9 Any Language ?? Amount of exercise or daily activities, outside of work: doesn't exercise but on feet 12hrs at work ?? Problems taking medications regularly No ?? Medication side effects: possibly muscle vs bone pain from statin drug ?? Diet: low salt and low fat/cholesterol History Substance Use Topics ??? Smoking status: Never Smoker ??? Smokeless tobacco: Never Used ??? Alcohol Use: Yes Comment: Rare She has lost some weight since last OV, she has been busy, no concerted effort with diet and exercise, she notes she doesn't eat 'junk food' as much because of lack of time. SHe does not want to have colonoscopy, but may be open to FIT testing. Hx of dizzy spells with movements of her head x years, she feels it occurs more often in the winter time. She notes when it does hit her, she'll lay down flat and she feels the room is spinning. Problem list and histories reviewed & adjusted, as indicated. Additional history: as documented Patient Active Problem List Diagnosis ??? Migraine headache ??? GERD (Gastroesophageal Reflux Disease) ??? Obesity ??? Family History of [place] (Myocardial Infarction) ??? Cervical Pain ??? Insomnia ??? Upper Back Pain ? ? Type 2 Diabetes, HbA1c Goal < 7% ? ? Hyperlipidemia LDL Goal <100 ? ? Hypertension Goal BP (Blood Pressure) < 130/80 ??? Seasonal allergic rhinitis ??? Vulvar dystrophy ??? Menorrhagia ??? LBP (low back pain) ??? Major depressive disorder, recurrent ??? Fibromyalgia Past Surgical History Procedure Date ??? C [...] ??? Cardiovascular Mother [place] age 72 ??? Cardiovascular Father [place] early 40s, subsequent bipass ??? Diabetes Mother [...] ??? Kidney disease Brother 55 ROS: Constitutional, neuro, ENT, endocrine, pulmonary, cardiac, gastrointestinal, genitourinary, musculoskeletal, integument and psychiatric systems are negative, except as otherwise noted. OBJECTIVE: BP 90/56 Pulse 68 Temp 98.1 ??F (36.7 ??C) (Oral) Resp 16 Ht 5' 2 (1.575 m) Wt 149 lb 11.2 oz (67.903 kg) BMI 27.37 kg/m2 SpO2 98% Body mass index is 27.37 kg/(m^2). GENERAL APPEARANCE: healthy, alert and no distress EYES: Eyes grossly normal to inspection, PERRL and conjunctivae and sclerae normal HENT: ear canals and TM's normal and nose and mouth without ulcers or lesions NECK: no adenopathy, no asymmetry, masses, or scars and thyroid normal to palpation RESP: lungs clear to auscultation - no rales, rhonchi or wheezes CV: regular rates and rhythm, normal S1 S2, no S3 or S4 and no murmur, click or rub SKIN: no suspicious lesions or rashes DIABETIC FOOT EXAM: normal DP and PT pulses, no trophic changes or ulcerative lesions, normal sensory exam and nail exam L big toe has thickened nail, patient notes she had a bruise there some months ago, normal appearing nail growing in PSYCH: mentation appears normal and affect normal/bright ASSESSMENT/PLAN: 250.00 Type 2 diabetes, HbA1C goal < 7% (primary encounter diagnosis) Comment: Plan: HEMOGLOBIN A1C, MICROALBUMIN QUANTITATIVE RANDOM URINE, glucose blood test strips (ACCU-CHEK JANICE) strip V76.51 Screen for colon cancer Comment: she didn't want a colonoscopy, but willing to do FIT Plan: Fecal colorectal cancer screen (FIT) V80.2 Screening for diabetic retinopathy Comment: Plan: EYE EXAM (SIMPLE-NONBILLABLE) V80.09 Screening for diabetic peripheral neuropathy Comment: Plan: FOOT EXAM V04.81 Need for prophylactic vaccination and inoculation against influenza Comment: Plan: ADMIN VACCINE, FIRST [44493], C FLU VACCINE, 3 YRS +, IM (QUADRIVALENT NO PRESERVATIVES) 272.4 Hyperlipidemia LDL goal <100 Comment: Plan: simvastatin (ZOCOR) 20 MG tablet 530.81 GERD (gastroesophageal reflux disease) Comment: Plan: omeprazole (PRILOSEC) 20 MG capsule 401.9 Hypertension goal BP (blood pressure) < 130/80 Comment: Plan: lisinopril (PRINIVIL,ZESTRIL) 5 MG tablet 729.1 Fibromyalgia Comment: Plan: DEPRESSION ACTION PLAN (DAP) Order [[id number]], DULoxetine (CYMBALTA) 30 MG capsule 346.90 Migraine headache Comment: Plan: topiramate (TOPAMAX) 50 MG tablet 278.00 Obesity Comment: Plan: 296.30 Major depressive disorder, recurrent Comment: Plan: PHQ-9 ORDER - select when completing PHQ-9 780.4 Dizziness Comment: Plan: TSH with free T4 reflex, CBC with platelets, Vitamin D Deficiency, OTOLARYNGOLOGY REFERRAL 381.4 OME (otitis media with effusion), left Comment: Plan: fluticasone (FLONASE) 50 MCG/ACT nasal spray Patient Instructions We'll check your labs to find explanation for the dizziness. If they are normal, I'd like you to schedule an appointment with ENT. [facility] [phone] In the mean time, try the nasal spray to see if it helps. Selma Good NP, SITE MEDICAL DIRECTOR [facility] IAL EDUCATION PROFESSOR documented in this encounter Nursing Notes 05/30/2013 1:00 PM CST >> FLORIDA MARK Fri May 30, 2013 1:15 PM Patient presents with: Diabetes Initial BP 90/56 Pulse 68 Temp 98.1 ??F (36.7 ??C) (Oral) Resp 16 Ht 5' 2 (1.575 m) Wt 149 lb 11.2 oz (67.903 kg) BMI 27.37 kg/m2 SpO2 98% Estimated Body mass index is 27.37 kg/(m^2) as calculated from the following: Height as of this encounter: 5' 2(1.575 m). Weight as of this encounter: 149 lb 11.2 oz(67.903 kg). BP completed using cuff size: regular [place] Mark CMA(AAMA) documented in this encounter Plan of Treatment Scheduled Referrals Name Type Priority Associated Diagnoses Order [facility] OTOLARYNGOLOGY REFERRAL Referral Routine Dizziness Orde red: 05/30/2013 documented as of this encounter Procedures Procedure Name Priority Date/Time Associated Diagnosis Comme nts ALBUMIN RANDOM URINE Routine 05/30/2013 1:50 PM Type 2 diabete s, Results for this QUANTITATIVE SPECIAL EDUCATION PROFESSOR HbA1C goal < 7% (H) procedur e are in the results section. VITAMIN D DEFICIENCY Routine 05/30/2013 1:49 PM Dizziness R esults for this SCREENING SPECIAL EDUCATION PROFESSOR procedure are i n the results section. TSH WITH FREE T4 Routine 05/30/2013 1:49 PM Dizziness Resul ts for this REFLEX SPECIAL EDUCATION PROFESSOR procedure are i n the results section. HEMOGLOBIN A1C Routine 05/30/2013 1:49 PM Type 2 diabetes, Res ults for this SPECIAL EDUCATION PROFESSOR HbA1C goal < 7% (H) procedur e are in the results section. CBC WITH PLATELETS Routine 05/30/2013 1:49 PM Dizziness Res ults for this SPECIAL EDUCATION PROFESSOR procedure are i n the results section. C FOOT EXAM Routine 05/30/2013 1:27 PM Screening for SPECIAL EDUCATION PROFESSOR diabetic peripheral neuropathy EYE EXAM Routine 05/30/2013 1:27 PM Screening for (SIMPLE-NONBILLABLE) SPECIAL EDUCATION PROFESSOR diabetic retinopathy documented in this encounter Results MICROALBUMIN QUANTITATIVE RANDOM URINE (05/30/2013 1:50 PM SPECIAL EDUCATION PROFESSOR) Component Value Ref Test Analysis Performed At Patholo gist Range Method Time Signature Creatinine 146 mg/dL [facility] Urine [facility] Albumin Urine <5 mg/L [facility] mg/L Urine Microalbumin lowest re portable value has been changed from 2 mg/L to 5 [facility] mg/L due to a methodology change on September. CAMPUS LABS Albumin Urine Unable to 0 - 25 [facility] mg/g Cr calculate mg/g Cr [facility] Specimen Anatomical Collection Method Collection Time Receive d Time (Source) Location / / Volume Laterality Urine specimen 05/30/2013 1:50 PM 013 1:52 (specimen) SPECIAL EDUCATION PROFESSOR PM SPECIAL EDUCATION PROFESSOR Selma Good APRN MANAGER INVENTORY MANAGEMENT LAB - URINE ORDERABLES Performing Organization Address City/State/ZIP Code Phon e Number [facility] [address] LABS (ABNORMAL) Vitamin D Deficiency (05/30/2013 1:49 PM SPECIAL EDUCATION PROFESSOR) athologist Signature Vitamin D 27 (L) 30 - 75 [facility] Deficiency ug/L [facility] LABS Comment: Season, race, dietary intake, and treatm ent affect the concentration of 84-ceptflm-Xqralih D. Values may decrea se during winter months and increase during summer months. Values less than 30 ug/L may indicate Vitamin D deficiency. Vitamin D determiniation is routinely p erformed by an immunoassay specific for 25 hydroxyvitamin D3. ??If an individua l is on vitamin D2 (ergocalciferol) supplementation, please specify 25 [place] v itamin D2 and D3 level determination by LCMSMS test VITD23. ??For questions, pl ease contact the laboratory at [phone]. Specimen Anatomical Collection Method Collection Time Receive d Time (Source) Location / / Volume Laterality Blood specimen 05/30/2013 1:49 PM 013 1:51 (specimen) SPECIAL EDUCATION PROFESSOR PM SPECIAL EDUCATION PROFESSOR Selma Good APRN MANAGER INVENTORY MANAGEMENT LAB - BLOOD ORDERABLES Performing Organization Address City/State/ZIP Code Phon e Number [facility] [address] [place] [address] [place] LAB[facility] CBC with platelets (05/30/2013 1:49 PM SPECIAL EDUCATION PROFESSOR) athologist Signature WBC 7.0 4.0 - 11.0 [facility] 10e9/L [facility] RBC Count 3.97 3.8 - 5.2 [facility] 10e12/L [facility] Hemoglobin 12.4 11.7 - [facility] 15.7 g/dL [facility] Hematocrit 36.4 35.0 - [facility] 47.0 % [facility] MCV 92 78 - 100 [facility] fl [facility] MCH 31.2 26.5 - [facility] 33.0 pg [facility] MCHC 34.1 31.5 - [facility] 36.5 g/dL [facility] RDW 12.5 10.0 - [facility] 15.0 % [facility] Platelet Count 226 150 - 450 [facility] 10e9/L [facility] Specimen Anatomical Collection Method Collection Time Receive d Time (Source) Location / / Volume Laterality Blood specimen 05/30/2013 1:49 PM 013 1:51 (specimen) SPECIAL EDUCATION PROFESSOR PM SPECIAL EDUCATION PROFESSOR Selma Good APRN, CNP LAB - BLOOD ORDERABLES Performing Organization Address City/State/ZIP Code Phon e Number [facility] [address] [place] [address] TSH with free T4 reflex (05/30/2013 1:49 PM SPECIAL EDUCATION PROFESSOR) athologist Signature TSH 1.68 0.4 - 5.0 [facility] mU/L [place] Specimen Anatomical Collection Method Collection Time Receive d Time (Source) Location / / Volume Laterality Blood specimen 05/30/2013 1:49 PM 013 1:51 (specimen) SPECIAL EDUCATION PROFESSOR PM SPECIAL EDUCATION PROFESSOR Selma Good APRN, CNP LAB - BLOOD ORDERABLES Performing Organization Address City/State/ZIP Code Phon e Number [facility] [address] [place] [address] [facility] [address] [place], [place] [address] HEMOGLOBIN A1C (05/30/2013 1:49 PM SPECIAL EDUCATION PROFESSOR) P athologist Signature Hemoglobin A1C 5.6 4.3 - 6.0 [facility] Specimen Anatomical Collection Method Collection Time Receive d Time (Source) Location / / Volume Laterality Blood specimen 05/30/2013 1:49 PM 013 1:51 (specimen) SPECIAL EDUCATION PROFESSOR PM SPECIAL EDUCATION PROFESSOR Selma Good APRN, CNP LAB - BLOOD ORDERABLES Performing Organization Address City/State/ZIP Code Phon e Number [facility] [place] [address] [facility] [place] [id number] documented in this encounter Visit Diagnoses Diagnosis Type 2 diabetes, HbA1c goal < 7% (H) - P rimary Type II or unspecified type diabetes sukhdev litus without mention of complication, not stated as uncontrolled Screen for colon cancer Special screening for malignant neoplasm s, colon Screening for diabetic retinopathy Screening for other eye conditions Screening for diabetic peripheral neurop athy Special screening for other neurological conditions Need for prophylactic vaccination and in oculation against influenza Hyperlipidemia LDL goal <100 Other and unspecified hyperlipidemia GERD (gastroesophageal reflux disease) Esophageal reflux Hypertension goal BP (blood pressure) < 130/80 Unspecified essential hypertension Fibromyalgia Mylagia and myositis, unspecified Migraine headache Migraine, unspecified, without mention o f intractable migraine without mention of status migrainosus Obesity Obesity, unspecified Major depressive disorder, recurrent (H) Major depressive disorder, recurrent epi sode, unspecified Dizziness Dizziness and giddiness OME (otitis media with effusion), left documented in this encounter Care Teams Dietician Relationship Specialty Start Date End Date Selma Good APRN CNP PCP - General 04/09/08 04/07/15 [address] [facility] [place] [id number] documented as of this encounter
--- OUTSIDE RECORDS SUMMARY | 2022-01-17 22:15 | XMS_ITS | Encounter Summary ---
:1965 Author Organization [facility] Address [address] [place] [address] Care Team Providers Name Role Phone Selma Good SERVICE LINE LAYER GRAPHIC TECHNICIAN Primary Care Provider [phone] Reason for Visit Reason Onset Date Comments Orders 06/02/2014 Encounter Details Date Type Department Care Team Description 06/02/2014 Telephone [facility] Eag Selma Anthony, Orders [facility] SERVICE LINE LAYER [place] [phone] [place] [address] [facility] [place] [address] (Wo rk) Social [...] How often do you attend hinduism or episcopalian Patient refused 08/08/2019 services? Do [...] Telephone Encounter - Kallie Mishra RN - 06/02/2014 3:53 PM CST Entered lipid panel. Plan from 04/29/14 encounter: Patient Instructions STOP the lisinopril AND the [...] effects to this medication. Sel[facility] O[facility] ACCOUNTING SPECIAL[facility] Telephone Encounter - Rossana Adams - 06/02/2014 12:[address] orders for upcoming lab appointment on 06/08/14 Thank you OLL ACCOUNTING SPECIALIST documented in this encounter Plan of Treatment Not on filedocumented as of this encounter Results Lipid panel reflex to direct LDL (06/08/2014 8:40 AM PAYROLL ACCOUNTING SPECIALIST) athologist Signature Cholesterol 197 <200 mg/dL [facility] Comment: LDL Cholesterol is the primary guide to therapy. The NCEP recommends further evaluation of: patients with cholesterol greater than 200 mg/dL if additional risk facto rs are present, cholesterol greater than 240 mg/dL, triglycerides greater than 1 50 mg/dL, or HDL less than 40 mg/dL. Triglycerides 77 0 - 150 mg/dL [facility] Comment: Fasting specimen HDL Cholesterol 57 >50 mg/dL [facility] LDL Cholesterol Calculated 125 0 - 129 mg/dL [facility] Comment: LDL Cholesterol is the primary guide to therapy: LDL-cholesterol goal in high risk patients is <100 mg/dL and in very high risk patients is <70 mg/dL. VLDL-Cholesterol 15 0 - 30 mg/dL [facility] [place] Cholesterol/HDL Ratio 3.5 0.0 - 5.0 [facility] Specimen Anatomical Collection Method Collection Time Receive d Time (Source) Location / / Volume Laterality Blood specimen 06/08/2014 8:40 AM 014 8:45 (specimen) PAYROLL ACCOUNTING SPECIALIST AM PAYROLL ACCOUNTING SPECIALIST Selma Good SERVICE LINE LAYER GRAPHIC TECHNICIAN LAB - BLOOD ORDERABLES Performing Organization Address City/State/ZIP Code Phon e Number [facility] [address] [place] [address] [facility] [address] [place], [place] [address] documented in this encounter Visit Diagnoses Diagnosis Hyperlipidemia LDL goal <100 - Primary Other and unspecified hyperlipidemia documented in this encounter Care Teams Community Service Aide Relationship Specialty Start Date End Date Selma Good, SEAN GRAPHIC TECHNICIAN PCP - General 04/09/08 04/07/[address] [place] [address] documented as of this encounter
--- OUTSIDE RECORDS SUMMARY | 2022-01-17 22:15 | XMS_ITS | Encounter Summary ---
:1965 Author Organization [facility] Address [address] [place] [address] Care Team Providers Name Role Phone Selma Good APRN, CNP Primary Care Provider [phone] Reason for Visit Reason Onset Date Comments Refill Request 09/20/2014 METFORMIN HCL 1000 M G Encounter Details Date Type Department Care Team Description 09/20/2014 Refill [facility] Eag Selma Anthony Refill Request 1440 [employer] SEAN Angeles CNP (METFORMIN HCL 1000 MG) [place] [id number] [facility] [phone] [facility] [place] [address] (Wo rk) Social History [...] How often do you attend uatsdin or tenriism Patient refused 08/08/2019 services? Do [...] Notes Telephone Encounter - Abigail Burciaga - 09/22/2014 3:51 PM CDT YOSELIN 06-09-14 A1C 5.9 03/25/2014 A1C 6.0 10/27/2013 A1C 5.6 05/30/2013 A1C 5.8 12/06/2012 A1C 5.8 06/05/2012 Should have labs shortly Filled PSO. Abigail Burciaga RN Telephone Encounter - Eri Middleton - 09/20/2014 7:02 PM CDT Refill request for: METFORMIN HCL 1000 mg Last prescribed by provider: Date: 03/25/2014 Quantity 60 w/ 1 refills Last filled through pharmacy: Date: 06/24/2014 Pharmacy Comments: LUZ ELENA Middleton RT(R) documented in this encounter Plan of Treatment Not on filedocumented as of this encounter Visit Diagnoses Diagnosis Type 2 diabetes, HbA1c goal < 7% (H) - P rimary Type II or unspecified type diabetes sukhdev litus without mention of complication, not stated as uncontrolled documented in this encounter Care Teams Logger Driving Horses Relationship Specialty Start Date End Date Danilo-Selma Mccoy, SALES AND RETAIL MANAGEMENT RECRUITER SPINNING BATH PATROLLER PCP - General 04/09/08 04/07/15 [address] [facility] [place] [address] documented as of this encounter
--- OUTSIDE RECORDS SUMMARY | 2022-01-17 22:15 | XMS_ITS | Encounter Summary ---
:1965 Author Organization [facility] Address [address] [place] [address] Care Team Providers Name Role Phone Selma Good APRN PLUCK SEPARATOR Primary Care Provider [phone] Reason for Visit Reason Onset Date Comments Panel Management 07/07/2013 Encounter Details Date Type Department Care Team Description 07/07/2013 Telephone [facility] Selma Hodges Panel Management [address] [facility] J, SEAN PLUCK SEPARATOR [place] [phone] [facility] [phone] [facility] [place] [address] (Wo rk) Social [...] How often do you attend hindu or buddhism Patient refused 08/08/2019 services? Do [...] Telephone Encounter - Charlotte Mark CMA - 09/02/2013 2:10 PM CDT FIT completed August 2013. Telephone Encounter - Charlotte Mark CMA - 08/05/2013 1:16 PM CST Pt hasnt done it yet,will attempt to get it completed in the next month,will check back with her in one month if FIT not recd. PING MACHINE OPERATOR Telephone Encounter - Charlotte Mark - 07/07/2013 4:54 PM CST Panel Management Review Date of last visit with a [facility] provider: KATHY on 05-30-13. Date of next visit with a [facility] provider: None. Problem List Patient Active Problem List Diagnosis ??? Migraine headache ??? GERD (Gastroesophageal Reflux Disease) ??? Obesity ??? Family History of NC (Myocardial Infarction) ??? Cervical Pain ??? Insomnia ??? Upper Back Pain ? ? Type 2 Diabetes, HbA1c Goal < 7% ? ? Hyperlipidemia LDL Goal <100 ? ? Hypertension Goal BP (Blood Pressure) < 130/80 ??? Seasonal allergic rhinitis ??? Vulvar dystrophy ??? Menorrhagia ??? LBP (low back pain) ??? Major depressive disorder, recurrent ??? Fibromyalgia Health Maintenance List Health Maintenance Topic Date Due ??? Colon Cancer Screen (System Assigned) 2013 ??? A1c Q6 Mo( No Inbasket) 11/28/2013 ??? Phq-9 Q6 Months (No Inbasket) 11/28/2013 ??? Creatinine Q1 Year (No Inbasket) 12/06/2013 ??? Lipid Monitoring Q1 Year( No Inbasket) 12/06/2013 ??? Influenza Vaccine (System Assigned) 03/11/2014 ??? Pap Q3 Yr Inbasket Message 05/05/2014 ??? Foot Exam Q1 Year( No Inbasket) 05/30/2014 ??? Eye Exam Q1 Year( No Inbasket) 05/30/2014 ??? Microalbumin Q1 Year( No Inbasket) 05/30/2014 ??? Depression Action Plan Q1 Yr (No Inbasket) 05/30/2014 ??? Mammo Screen Q2 Yr (System Assigned) 05/27/2015 ??? Tsh W/ Free T4 Reflex Q2 Year (No Inbasket) 05/30/2015 ??? Tetanus Immunization (System Assigned) 04/13/2016 ??? Migraine Action Plan,one Time,no Inbasket Completed For diabetic patients with hyperlipidemia, only choose diabetes. Composite cancer screening Chart review shows that this patient is due/due soon for the following Colonoscopy PAP NIL 05/05/2011 Past Surgical History Procedure Date ??? C spinal fusion,ant,ea adnl level 2004 L5, S1, Repeated in 2005 ??? C spinal fusion,ant,ea adnl level 2006 SI joints ??? C spinal fusion,ant,ea adnl level 2000 C5-C7 fused ??? section Is hysterectomy listed in surgical history? No Is mastectomy listed in surgical history? No Tobacco History History Smoking status ??? Never Smoker Smokeless tobacco ??? Never Used Summary: Patient is due/failing the following: COLONOSCOPY Action needed: CALL PATIENT Type of outreach: Phone, spoke to patient. She declines colonoscopy but willing to do FIT. She accidentally threw away her FIT so we will send her out another one. Questions for provider review: None Please indicate office visit, lab, MTM, or nurse appt if needed. Indicate fasting or not fasting. Charlotte Mark CMA(AAMA) PING MACHINE OPERATOR documented in this encounter Plan of Treatment Not on filedocumented as of this encounter Visit Diagnoses Diagnosis Screening for malignant neoplasm of the rectum - Primary documented in this encounter Care Teams Ocean Freight Forwarder Relationship Specialty Start Date End Date Selma Good APRN PLUCK SEPARATOR PCP - General 04/09/08 04/07/15 [address] [facility] [place] [address] documented as of this encounter
--- OUTSIDE RECORDS SUMMARY | 2022-01-17 22:15 | XMS_ITS | Encounter Summary ---
:1965 Author Organization [facility] Address [address] [place] [address] Care Team Providers Name Role Phone Selma Good APRN, CNP Primary Care Provider [phone] Reason for Visit Reason Onset Date Comments Refill Request 08/24/2014 OMEPRAZOLE 20MG Encounter Details Date Type Department Care Team Description 08/24/2014 Refill [facility] Eag Selma Anthony Refill Request 1440 [employer] SEAN Angeles CNP (OMEPRAZOLE 20MG) [place] [id number] [facility] [phone] [facility] [place] [address] (Wo rk) Social [...] How often do you attend gnosticist or rastafari Patient refused 08/08/2019 services? Do [...] Telephone Encounter - Day Greene RN - 08/25/2014 10:48 AM CDT Refill given for 1 month. Pt knows she needs an appt per jamaal from 08/17/14 Day Greene RN, BSN Telephone Encounter - Marisa Matthew - 08/24/2014 8:52 AM CDT Refill request for: OMEPRAZOLE 20 mg Last prescribed by provider: Date: 05/30/2013 Quantity 90 w/ PRN refills Last filled through pharmacy: Date: 05/19/2014 Pharmacy Comments: LUZ ELENA Matthew RT(R) documented in this encounter Plan of Treatment Not on filedocumented as of this encounter Visit Diagnoses Diagnosis GERD (gastroesophageal reflux disease) - Primary Esophageal reflux documented in this encounter Care Teams Bilingual Receptionist Relationship Specialty Start Date End Date Danilo-Selma Mccoy, BENZENE WORKER CITY PLANNING ENGINEER PCP - General 04/09/08 04/07/15 [address] [facility] [address] [place], [place] [address] documented as of this encounter
--- OUTSIDE RECORDS SUMMARY | 2022-01-17 22:15 | XMS_ITS | Encounter Summary ---
:1965 Author Organization [facility] Address [address] [place] [address] Care Team Providers Name Role Phone Selma Good APRN [facility] Primary Care Provider [phone] Reason for Visit Reason Comments Musculoskeletal Problem Encounter Details Date Type Department Care Team Description 03/25/2014 Office Visit [facility] Florentino, Janey speci fihermes idiopathic peripheral neuropathy (Primary Dx); Pino Angeles APRN Insomnia; 14[address] [employer] Type 2 diabetes, HbA1C goal < 7% (H); [place] [phone] [place] [address] Major depressive disorder, r ecurrent (H); [phone] [facility] DAV[place] [id number] Social History Tobacco Use Types Packs/Day Years [...] Sign Reading Time Taken Comments Blood Pressure 86/66 03/25/2014 2:37 PM CDT Pulse 76 03/25/2014 2:37 PM CDT Temperature 35.9 ??C (96.7 ??F) 03/25/2014 2:37 PM CDT Respiratory Rate 16 03/25/2014 2:37 PM CDT Oxygen Saturation - - Inhaled Oxygen Concentration - - Weight 68.4 kg (150 lb 12.8 oz) 03/25/2014 2:37 PM CDT Height - - Body Mass Index 27.58 10/27/2013 8:53 AM CDT documented in this encounter Patient Instructions Patient InstructionsSelma Good NP - 03/25/2014 3:12 PM CDT Decrease your metformin dose to 500 mg twice a day. Hopefully this will help with the lows you've been having. Start the celexa to help with your symptoms. I'd like you to follow up with me in 1 mo. We will do labs to see if there is an explanation for the numbness. If your labs are normal, I will order a referral to ortho. RETURN TO CLINIC to see me in ONE month for follow up. documented in this encounter Progress Notes Selma Good NP - 03/25/2014 2:36 PM CDT SUBJECTIVE: Megan Choi is a 48 year old female who presents to clinic today for the following health issues: Musculoskeletal problem/pain ?? Duration: ongoing for past 3 weeks or so, L foot numbness mostly on the L but can occur in the R as well episodes that occur about every day. Aggravating factors when she is sitting or standing too long. No precip factors including new shoes or activity. She has chronic neck and back pain, which isworsening. Denies sciatica type symptoms. She does have a hx of diabetes, and notes her BG have beenlow, around 75. ?? Description Location: left foot ?? Intensity: mild ?? Accompanying signs and symptoms: radiation of pain from left hip possibly,swelling if on feet fortoo long ?? History Previous similar problem: YES- just when she had surgery years back and possible left foot fracture Previous evaluation: none ?? Precipitating or alleviating factors: Trauma or overuse: no Aggravating factors include: sitting and standing for long periods of time ?? Therapies tried and outcome: nothing She notes marked increase of stressors including concerns about her grandchildren. She does have chronic back pain and fibromyalgia and she notes a marked increase in her pain symptoms. She also notes difficulty sleeping, noting she hasn't slept through the night in years, and wakes frequently. She isunsure if she wakes due to pain or anxiety or peripheral neuropathy symptoms. Problem list and histories reviewed & adjusted, as indicated. Additional history: as documented Patient Active Problem List Diagnosis ??? Migraine headache ??? GERD (Gastroesophageal Reflux Disease) ??? Obesity ??? Family History of VT (Myocardial Infarction) ??? Cervical Pain ??? Insomnia [...] Relation Age of Onset ??? Cardiovascular Mother VT age 72 ??? Cardiovascular Father VT early 40s, subsequent bipass ??? Diabetes Mother [...] negative, except as otherwise noted. OBJECTIVE: BP 86/66 Pulse 76 Temp(Src) 96.7 ??F (35.9 ??C) (Tympanic) Resp 16 Wt 150 lb 12.8 oz (68.402kg) BMI 27.57 kg/m2 Body mass index is 27.57 kg/(m^2). GENERAL APPEARANCE: healthy, alert and no distress PSYCH: anxious ASSESSMENT/PLAN: 1. Other specified idiopathic peripheral neuropathy 2. Insomnia 3. Type 2 diabetes, HbA1C goal < 7% 4. Major depressive disorder, recurrent 5. Fibromyalgia PLAN: We reviewed her symptoms of peripheral neuropathy, but seeing she has had lower blood glucose levelsversus higher, the risk for this being diabetes-related is lower. We spent considerable time discussing her symptoms of stress and anxiety which have been more recently. She has been on cymbalta, but we reviewed the benefit of adding an SSRI to help with these symptoms. After reviewing options, she opts to try celexa. Black box warning reviewed. We also discussed the relationship between pain and fibro and her anxiety type symptoms. We will start her on this. Additinoally, we are decreasing her metformin dose, as she has had hypoglycemia type symptoms recently. We will draw labs to see if there is any other organic cause of peripheral neuropathy. Could also consider lumbago and sciatica, however she denies buttock pain or neuropathy. If labs are negative, could consider referral to ortho. She would prefer to not go to neuro at this time. She will follow up in 1 mo Patient Instructions Decrease your metformin dose to 500 mg twice a day. Hopefully this will help with the lows you've been having. Start the celexa to help with your symptoms. I'd like you to follow up with me in 1 mo. We will do labs to see if there is an explanation for the numbness. If your labs are normal, I will order a referral to ortho. RETURN TO CLINIC to see me in ONE month for follow up. Selma Good NP, KIDNEY TRIMMER [facility] [place] documented in this encounter Nursing Notes Charlotte Mark CMA - 03/25/2014 2:45 PM CDT Chief Complaint Patient presents with ??? Musculoskeletal Problem Initial BP 86/66 Pulse 76 Temp(Src) 96.7 ??F (35.9 ??C) (Tympanic) Resp 16 Wt 150 lb 12.8 oz(68.402 kg) BMI 27.57 kg/m2 Estimated body mass index is 27.57 kg/(m^2) as calculated from the following: Height as of 14: 5' 2 (1.575 m). Weight as of this encounter: 150 lb 12.8 oz (68.402 kg). BP completed using cuff size: regular Charlotte Mark CMA(AAMA) documented in this encounter Plan of Treatment Not on filedocumented as of this encounter Procedures Procedure Name Priority Date/Time Associated Comments Diagnosis VITAMIN D DEFICIENCY Routine 03/25/2014 3:16 PM Other Specifie d Results for this SCREENING CDT Idiopathic procedure are i n Peripheral the results Neuropathy section. TSH WITH FREE T4 Routine 03/25/2014 3:16 PM Other Specified Re sults for this REFLEX CDT Idiopathic procedure are i n Peripheral the results Neuropathy section. HEMOGLOBIN A1C Routine 03/25/2014 3:16 PM Type 2 diabetes, Res ults for this CDT HbA1C goal < 7% (H) procedur e are in the results section. documented in this encounter Results Vitamin D Deficiency (03/25/2014 3:16 PM CDT) P athologist Signature Vitamin D 36 30 - 75 [facility] Deficiency ug/L [facility] screening Comment: Season, race, dietary intake, and treatm ent affect the concentration of 32-mwcsjdi-Glxglcr D. Values may decrea se during winter [...] questions, pl ease contact the laboratory at [phone]. Specimen Anatomical Collection Method Collection Time Receive d Time (Source) Location / / Volume Laterality Blood specimen 03/25/2014 3:16 PM 014 3:19 (specimen) CDT PM CDT Selma Good APRN, CNP LAB - BLOOD ORDERABLES Performing Organization Address City/State/ZIP Code Phon e Number [facility] [address] [place] [address] [facility] TSH with free T4 reflex (03/25/2014 3:16 PM CDT) athologist Signature TSH 2.39 0.40 - 4.00 [facility] mU/L [place] Comment: Effective 01/07/2014, the reference range for this assay has changed to reflect new instrumentation/methodology. Specimen Anatomical Collection Method Collection Time Receive d Time (Source) Location / / Volume Laterality Blood specimen 03/25/2014 3:16 PM 014 3:19 (specimen) CDT PM CDT Selma Good APRN, CNP LAB - BLOOD ORDERABLES Performing Organization Address City/[facility]/ZIP Code Phon e Number [facility] [address] [place] [address] [facility] [address] [place] [address] Hemoglobin A1c (03/25/2014 3:16 PM CDT) athologist Signature Hemoglobin A1C 5.9 4.3 - 6.0 [facility] Specimen Anatomical Collection Method Collection Time Receive d Time (Source) Location / / Volume Laterality Blood specimen 03/25/2014 3:16 PM 014 3:19 (specimen) CDT PM CDT Selma Good APRN, CNP LAB - BLOOD ORDERABLES Performing Organization Address City/State/ZIP Code Phon e Number [facility] [address] [place] [address] documented in this encounter Visit Diagnoses Diagnosis Other specified idiopathic peripheral ne uropathy - Primary Insomnia Insomnia, unspecified Type 2 diabetes, HbA1c goal < 7% (H) Type II or unspecified type diabetes sukhdev litus without mention of complication, not stated as uncontrolled Major depressive disorder, recurrent (H) Major depressive disorder, recurrent epi sode, unspecified Fibromyalgia Mylagia and myositis, unspecified documented in this encounter Care Teams Conservation Educator Relationship Specialty Start Date End Date Danilo-Selma Mccoy, ELEMENTARY SCHOOL LIBRARIAN GOLD LEAF ROLLER PCP - General 04/09/08 04/07/15 [address] [facility] [place] [address] documented as of this encounter
--- OUTSIDE RECORDS SUMMARY | 2022-01-17 22:15 | XMS_ITS | Encounter Summary ---
:1965 Author Organization [facility] Address [address] [place] [address] Care Team Providers Name Role Phone Selma Good MACHINE CLEANER PRACTICE NURSE Primary Care Provider [phone] Reason for Visit Reason Onset Date Comments Orders 08/04/2014 Encounter Details Date Type Department Care Team Description 08/04/2014 Telephone [facility] Eag Selma Anthony, Orders [facility] MACHINE CLEANER DAVID Vasquez [phone] [place] [address] [facility] [place] [address] (Wo rk) Social [...] Telephone Encounter - Kallie Mishra RN - 08/05/2014 9:26 AM CST Reviewed chart. Entered microablumin and lipid panel. Copied from 06/09/14 office visit: HYPERLIPIDEMIA, slightly worsened, restart simvistatin and repeat fasting labs in 2 m MAN Telephone Encounter - Rossana Adams - 08/04/2014 3:[address] orders for upcoming lab appointment on 08/10/14 Thank you MAN documented in this encounter Plan of Treatment Not on filedocumented as of this encounter Results Microalbumin quantitative random urine (08/10/2014 8:57 AM REEL MAN) Patholo gist Method Time Signature Creatinine 41 mg/dL [facility] Urine [facility] Albumin Urine <5 mg/L [facility] mg/L [facility] Albumin Urine Unable to calculate due to low value 0 - 25 [facility] mg/g Cr Effective 01/07/2014, the re ference range for this assay has changed to reflect mg/g Cr [facility] new instrumentation/methodology. HOSPITAL Specimen Anatomical Collection Method Collection Time Receive d Time (Source) Location / / Volume Laterality Urine specimen 08/10/2014 8:57 AM 015 8:58 (specimen) REEL MAN AM REEL MAN Selma Good APRN PRACTICE NURSE LAB - URINE ORDERABLES Performing Organization Address City/State/ZIP Code Phon e Number M [facility] [address] [place] [address] [facility] [address] [place] [address] [facility] [address] [place], [place] [address] [facility] Lipid panel reflex to direct LDL (08/10/2014 8:56 AM REEL MAN) athologist Signature Cholesterol 153 <200 mg/dL [facility] Comment: LDL Cholesterol is the primary guide to therapy. The NCEP recommends further evaluation of: patients with cholesterol greater than 200 mg/dL if additional risk facto rs are present, cholesterol greater than 240 mg/dL, triglycerides greater than 1 50 mg/dL, or HDL less than 40 mg/dL. Triglycerides 79 0 - 150 mg/dL [facility] CLI NICS [facility] HDL Cholesterol 61 >50 mg/dL [facility] CLINI CS [facility] LDL Cholesterol Calculated 76 0 - 129 mg/dL [facility] Comment: LDL Cholesterol is the primary guide to therapy: LDL-cholesterol goal in high risk patients is <100 mg/dL and in very high risk patients is <70 mg/dL. VLDL-Cholesterol 16 0 - 30 mg/dL [facility] Cholesterol/HDL Ratio 2.5 0.0 - 5.0 [facility] Specimen Anatomical Collection Method Collection Time Receive d Time (Source) Location / / Volume Laterality Blood specimen 08/10/2014 8:56 AM 015 8:57 (specimen) REEL MAN AM REEL MAN Selma Good APRN, CNP LAB - BLOOD ORDERABLES Performing Organization Address City/State/ZIP Code Phon e Number [facility] [address] [place] [address] documented in this encounter Visit Diagnoses Diagnosis Type 2 diabetes, HbA1c goal < 7% (H) - P rimary Type II or unspecified type diabetes sukhdev litus without mention of complication, not stated as uncontrolled Hyperlipidemia LDL goal <100 Other and unspecified hyperlipidemia Hypertension goal BP (blood pressure) < 130/80 Unspecified essential hypertension documented in this encounter Care Teams Travel Manager Relationship Specialty Start Date End Date Selma Good APRN CNP PCP - General 04/09/08 04/07/15 [address] [facility] [place] [address] documented as of this encounter
--- OUTSIDE RECORDS SUMMARY | 2022-01-17 22:15 | XMS_ITS | Encounter Summary ---
:1965 Author Organization [facility] Address [address] [place] [address] Care Team Providers Name Role Phone Selma Good APRN, CNP Primary Care Provider [phone] Reason for Visit Reason Onset Date Comments Refill Request 09/22/2014 TOPIRAMATE 50MG Encounter Details Date Type Department Care Team Description 09/22/2014 Refill [facility] Selma Hodges Refill Request 1440 [employer] SEAN Angeles CNP (TOPIRAMATE 50MG) [place] [phone] [place] [address] [facility] DAVID GR[place]AM [phone] (Wo rk) Social History Tobacco Use Types [...] How often do you attend methodist or lutheran Patient refused 08/08/2019 services? Do [...] Notes Telephone Encounter - Abigail Burciaga - 09/24/2014 4:06 PM CDT YOSELIN 12-14; RTC 1m Last refill pt was told she needs appointment. Scheduled appointment 10-07-14 Does not need refill before appointment. Pharmacy informed. Abigail Burciaga RN Telephone Encounter - NannettedanielMarisa - 09/22/2014 1:38 PM CDT Refill request for: TOPIRAMATE 50 mg Last prescribed by provider: Date: 08/25/2014 Quantity 90 w/ NEEDS APPT WITH PROVIDER Last filled through pharmacy: Date: 08/25/2014 Pharmacy Comments: LUZ ELENA Matthew RT(R) documented in this encounter Plan of Treatment Not on filedocumented as of this encounter Visit Diagnoses Diagnosis Migraine headache - Primary Migraine, unspecified, without mention o f intractable migraine without mention of status migrainosus documented in this encounter Care Teams Kier Boiler Relationship Specialty Start Date End Date Danilo-Selma Mccoy, FLIGHT COMMUNICATIONS OPERATOR BURLAP BAG SEWER PCP - General 04/09/08 04/07/15 [address] [facility] [address] [place], [place] [address] documented as of this encounter
--- OUTSIDE RECORDS SUMMARY | 2022-01-17 22:15 | XMS_ITS | Encounter Summary ---
:1965 Author Organization [facility] Address [address] [place] [address] Care Team Providers Name Role Phone Selma Good APRN, CNP Primary Care Provider [phone] Reason for Visit Reason Onset Date Comments Refill Request 08/25/2014 TOPIRAMATE 50MG Encounter Details Date Type Department Care Team Description 08/25/2014 Refill [facility] Selma Hodges Refill Request 1440 [employer] SEAN Angeles CNP (TOPIRAMATE 50MG) [place] [phone] [place] [address] [facility] DAVID GR[place]AM [phone] (Wo rk) Social History Tobacco Use Types [...] How often do you attend buddhism or spiritism Patient refused 08/08/2019 services? Do [...] this encounter Miscellaneous Notes Telephone Encounter - Meeta Cobb RN - 08/25/2014 11:09 AM CDT Refilled PSO for quanity of one month I sent the pt a reminder letter Last Seen: 06/09/14 with Selma Mccoy Rtc instructions: was supposed to rtc in a month and didn't, I sent her a reminder letter, via [employer] and also mailed her a letter Meeta Cobb RN. Telephone Encounter - Marisa Matthew - 08/25/2014 8:48 AM CDT Refill request for: TOPIRAMATE 50 mg Last prescribed by provider: Date: 05/30/2013 Quantity 270 w/ PRN refills Last filled through pharmacy: Date: 05/30/2014 Pharmacy Comments: LUZ ELENA Matthew RT(R) documented in this encounter Plan of Treatment Not on filedocumented as of this encounter Visit Diagnoses Diagnosis Migraine headache - Primary Migraine, unspecified, without mention o f intractable migraine without mention of status migrainosus documented in this encounter Care Teams Supervisor Fabrication And Assembly Relationship Specialty Start Date End Date Danilo-Selma Mccoy, SHRIMP PEELER RE ETCHER PCP - General 04/09/08 04/07/15 2059 [facility] DAV[place] [address] documented as of this encounter
--- OUTSIDE RECORDS SUMMARY | 2022-01-17 22:15 | XMS_ITS | Encounter Summary ---
:1965 Author Organization [facility] Address [address] [place] [address] Care Team Providers Name Role Phone Selma Good APRN [facility] Primary Care Provider [phone] Reason for Visit Reason Comments Anxiety Depression Encounter Details Date Type Department Care Team Description 06/09/2014 Office Visit [facility] Florentino, Insomnia (P rimary Dx); Pino Angeles APRN Migraine headache; [address] [facility] Type 2 diabetes, HbA1C goal < 7% (H); [place] [id number] [address] [facility] Hyperlipidemia LDL goal <100 ; [phone] [facility] Hypertension goal BP (blood pressure) < 130/80; [place] [address] Major depressive disorder, recurrent (H) ; [phone] Anxiety; (Work) OME (otitis media with effusion), bilate ral Social History Tobacco Use Types Packs/Day Years [...] How often do you attend catholic or voodoo Patient refused 08/08/2019 services? Do [...] Sign Reading Time Taken Comments Blood Pressure 90/66 06/09/2014 9:31 AM OIL SPRAYER Pulse 80 06/09/2014 9:31 AM OIL SPRAYER Temperature 36 ??C (96.8 ??F) 06/09/2014 9:31 AM OIL SPRAYER Respiratory Rate 16 06/09/2014 9:31 AM OIL SPRAYER Oxygen Saturation - - Inhaled Oxygen Concentration - - Weight 68.7 kg (151 lb 6.4 oz) 06/09/2014 9:31 AM OIL SPRAYER Height - - Body Mass Index 27.69 10/27/2013 8:53 AM CDT documented in this encounter Patient Instructions Patient InstructionsSelma Good NP - 06/09/2014 9:51 AM OIL SPRAYER Restart the simvastatin and we can repeat this lab in about 2 months. Your BP is excellent today so you can continue to be OFF lisinopril. Let's increase the amitriptyline to a total of 40 mg at bedtime. RETURN TO CLINIC 1 month. SPRAYER documented in this encounter Progress Notes Selma Good NP - 06/09/2014 9:28 AM CST SUBJECTIVE: Megan Choi is a 49 year old female who presents to clinic today for the following health issues: Depression and Anxiety Follow-Up/med check for Celexa/recheck ears,still hurt even with Flonase use. ?? Status since last visit: Improved somewhat ?? Other associated symptoms :None ?? Complicating factors: ?? Significant life event: No ?? Current substance abuse: None PHQ-9 SCORE (FM) 05/30/2013 12/17/2013 04/23/2014 Total Score 6 8 10 Total Score - - - HELGA-7 SCORE 04/29/2014 Total Score 5 PHQ-9 Syrian PHQ-9 Any Language GAD7 At last visit, she noted her anxiety symptoms were better with celexa, but she hadn't been sleeping well. We initiated amitriptyline at that time, hopefull to help daily headaches as well and since then, she notes it didn't work very well to help falling asleep. She notes she did have an improvement of headaches, but she wonders if it was related to her teeth and she got that fixed. Additionally, at last OV, we had her STOP lisinopirl and simvastatin and she has a hx of diabetes, but has been very well controlled. Her BP today is very good and she can continue OFF lisinopril. She did lipids ynesterday and LDL is at 125. ?? Amount of exercise or physical activity: Not as much in the winter ?? Problems taking medications regularly: No ?? Medication side effects: none ?? Diet: regular (no restrictions) Problem list and histories reviewed & adjusted, as indicated. Additional history: as documented Patient Active Problem List Diagnosis ??? Migraine headache ??? GERD (Gastroesophageal Reflux Disease) ??? Obesity ??? Family History of [place] (Myocardial Infarction) ??? Cervical Pain ??? Insomnia [...] Relation Age of Onset ??? Cardiovascular Mother [place] age 72 ??? Cardiovascular Father [place] early 40s, subsequent bipass ??? Diabetes Mother [...] Brother 55 ROS: Constitutional, HEENT, cardiovascular, pulmonary, GI, , musculoskeletal, neuro, skin, endocrine and psych systems are negative, except as otherwise noted. OBJECTIVE: BP 90/66 Pulse 80 Temp(Src) 96.8 ??F (36 ??C) (Tympanic) Resp 16 Wt 151 lb 6.4 oz (68.675 kg) Body mass index is 27.68 kg/(m^2). GENERAL: healthy, alert and no distress EYES: Eyes grossly normal to inspection, PERRL and conjunctivae and sclerae normal HENT: ear canals and TM's with air/fluid interface, nose and mouth without ulcers or lesions SKIN: no suspicious lesions or rashes PSYCH: mentation appears normal, affect normal/bright ASSESSMENT: DIABETES TYPE 2, non-insulin dependent, controlled. Associated with the following: None HYPERLIPIDEMIA, slightly worsened, restart simvistatin and repeat fasting labs in 2 mo HYPERTENSION, controlled. Associated with the following complications: None, continue OFF medications for now. OME: Continue allergy medications and flonase Insomnia/Anxiety/Depression: continue celexa as this is helping. Increase amitriptyline dosing and follow up in 1mo. Migraines: Improved since last time but she feels this is due to fixed dental work. May not be due to amitriptyline. PLAN: Patient Instructions Restart the simvastatin and we can repeat this lab in about 2 months. Your BP is excellent today so you can continue to be OFF lisinopril. Let's increase the amitriptyline to a total of 40 mg at bedtime. RETURN TO CLINIC 1 month. Selma Good NP [facility] SPRAYER documented in this encounter Nursing Notes Charlotte Mark, WYATT - 06/09/2014 9:36 AM CST Chief Complaint Patient presents with ??? Anxiety ??? Depression Initial BP 90/66 Pulse 80 Temp(Src) 96.8 ??F (36 ??C) (Tympanic) Resp 16 Wt 151 lb 6.4 oz (68.675 kg) Estimated body mass index is 27.68 kg/(m^2) as calculated from the following: Height as of 14: 5' 2 (1.575 m). Weight as of this encounter: 151 lb 6.4 oz (68.675 kg). BP completed using cuff size: regular Charlotte Mark CMA(AAMA) SPRAYER documented in this encounter Plan of Treatment Not on filedocumented as of this encounter Visit Diagnoses Diagnosis Insomnia - Primary Insomnia, unspecified Migraine headache Migraine, unspecified, without mention o f intractable migraine without mention of status migrainosus Type 2 diabetes, HbA1c goal < 7% (H) Type II or unspecified type diabetes sukhdev litus without mention of complication, not stated as uncontrolled Hyperlipidemia LDL goal <100 Other and unspecified hyperlipidemia Hypertension goal BP (blood pressure) < 130/80 Unspecified essential hypertension Major depressive disorder, recurrent (H) Major depressive disorder, recurrent epi sode, unspecified Anxiety Anxiety state, unspecified OME (otitis media with effusion), bilate ral documented in this encounter Care Teams Apprentice Technician Relationship Specialty Start Date End Date Danilo-Selma Mccoy, VP CARDIOVASCULAR RUG UNDERLAY MACHINE OPERATOR PCP - General 04/09/08 04/07/15 [address] [facility] DAV[place] [id number] documented as of this encounter
--- OUTSIDE RECORDS SUMMARY | 2022-01-17 22:15 | XMS_ITS | Encounter Summary ---
:1965 Author Organization [facility] Address [address] [place] [address] Care Team Providers Name Role Phone Selma Good APRN, CNP Primary Care Provider [phone] Reason for Visit Reason Onset Date Comments Refill Request 06/23/2014 FLUTICASONE PROP 50M CG SPRAY Encounter Details Date Type Department Care Team Description 06/23/2014 Refill [facility] Eag Selma Anthony Refill Request 1440 [employer] SEAN Angeles CNP (FLUTICASONE PROP 50MCG [place] [phone] [address] [facility] SPRAY) [phone] [facility] DAVID GRESHAM [phone] (Wo rk) Social History Tobacco Use Types [...] How often do you attend hoahaoism or congregation Patient refused 08/08/2019 services? Do [...] Notes Telephone Encounter - Abigail Burciaga - 06/23/2014 3:26 PM CST YO[place] 06-09-14 Filled PSO. Abigail Burciaga RN CHECKER Telephone Encounter - Marisa Matthew - 06/23/2014 11:53 AM CST Refill request for: FLUTICASONE 50MCG SPRAY Last prescribed by provider: Date: 05/30/2013 Quantity 1 w/ 11 refills Last filled through pharmacy: Date: 05/25/2014 Pharmacy Comments: LUZ ELENA Matthew RT(R) CHECKER documented in this encounter Plan of Treatment Not on filedocumented as of this encounter Visit Diagnoses Diagnosis OME (otitis media with effusion), left - Primary documented in this encounter Care Teams Medical Laboratory Technicians Relationship Specialty Start Date End Date Danilo-Selma Mccoy, TILE INSPECTOR MACHINE PAINT MIXER PCP - General 04/09/08 04/07/[address] [facility] [place] [address] documented as of this encounter
--- OUTSIDE RECORDS SUMMARY | 2022-01-17 22:15 | XMS_ITS | Encounter Summary ---
:1965 Author Organization [facility] Address [address] [place] [address] Care Team Providers Name Role Phone Selma Good APRN, CNP Primary Care Provider [phone] Reason for Visit Reason Onset Date Comments Refill Request 04/23/2014 CITALOPRAM 20MG Encounter Details Date Type Department Care Team Description 04/23/2014 Refill [facility] Selma Hodges Refill Request 1440 [employer] SEAN Angeles CNP (CITALOPRAM 20MG) [place] [phone] [place] [address] [facility] [place] [address] [...] How often do you attend mormon or samaritan Patient refused 08/08/2019 services? Do you belong to any clubs or organizations such as No 08/08/2019 mormon groups, unions, fraternal or athletic groups, or [...] encounter Miscellaneous Notes Telephone Encounter - Keyona Salcido RN - 04/24/2014 12:39 PM BEEF GRADER Spoke to pharmacist- pt still has 30 left to fill. Removing med request. Keyona Salcido RN GRADER Telephone Encounter - Day Greene RN - 04/24/2014 11:40 AM CST Spoke with patient and she is unable to get enough money for her copay at this time so she cannot schedule and appt. She is thinking she will be able to come in closer to the end of the month. PHQ has been updated. She did state several days for last question but no active plan Please advise on refill Dya Greene RN, BSN PHQ-9 (scale: 0 to 3) 04/23/2014 No interest in doing things 1 Feeling Depressed 1 Trouble sleeping 3 Tired / No energy 1 No appetite or over-eating 1 Feeling bad about self 1 Trouble concentrating 0 Moving slow or restless 1 Suicidal thoughts 1 TOTAL SCORE-----> 10 GRADER Telephone Encounter - Marisa Matthew - 04/23/2014 1:10 PM CST Refill request for: CITALOPRAM 20 mg Last prescribed by provider: Date: 03/25/2014 Quantity 120 w/ 0 refills Last filled through pharmacy: Date: Pharmacy Comments: LUZ ELENA Matthew RT(R) GRADER documented in this encounter Plan of Treatment Not on filedocumented as of this encounter Visit Diagnoses Diagnosis Major depressive disorder, recurrent (H) Major depressive disorder, recurrent epi sode, unspecified documented in this encounter Care Teams Weather Anchor Relationship Specialty Start Date End Date Selma Good APRN AERIAL GUNNER SUPERINTENDENT PCP - General 04/09/08 04/07/15 [address] [facility] [address] [place], [place] [address] documented as of this encounter
--- OUTSIDE RECORDS SUMMARY | 2022-01-17 22:15 | XMS_ITS | Encounter Summary ---
:1965 Author Organization [facility] Address [address] [place] [address] Care Team Providers Name Role Phone Selma Good APRN SUPERINTENDENT WAREHOUSE Primary Care Provider [phone] Reason for Visit Reason Onset Date Comments Panel Management 08/11/2014 Encounter Details Date Type Department Care Team Description 08/11/2014 Telephone [facility] Selma Hodges Panel Management 1440 [employer] [facility] J, SEAN SUPERINTENDENT WAREHOUSE [place] [phone] [facility] [phone] [facility] [place] [id number] (Wo rk) Social [...] How often do you attend sabianism or synagogue Patient refused 08/08/2019 services? Do [...] Telephone Encounter - Charlotte Mark CMA - 09/08/2014 9:01 AM CDT Pt declines scheduling at this time, too busy, doesn't want c/b either. Telephone Encounter - Charlotte Mark CMA - 08/11/2014 4:11 PM CST Panel Management Review Date of last visit with a [facility] provider: KATHY on 06-09-14. Date of next visit with a [facility] provider: None. Problem List Patient Active Problem List Diagnosis ??? Migraine headache ??? GERD (Gastroesophageal Reflux Disease) ??? Obesity ??? Family History of [place] (Myocardial Infarction) ??? Cervical Pain ??? Insomnia ??? Upper Back Pain ? ? Type 2 Diabetes, HbA1c Goal < 7% ? ? Hyperlipidemia LDL Goal <100 ? ? Hypertension Goal BP (Blood Pressure) < 130/80 ??? Seasonal allergic rhinitis ??? Vulvar dystrophy ??? Menorrhagia ??? LBP (low back pain) ??? Major depressive disorder, recurrent ??? Fibromyalgia ??? Anxiety Health Maintenance List Health Maintenance Topic Date Due ? ? PNEUMOVAX 1X HI RISK PATIENT < 65 (NO IB MSG) 1967 ??? PAP Q3 YR INBASKET MESSAGE 05/05/2014 ??? FOOT EXAM Q1 YEAR( NO INBASKET) 05/30/2014 ??? EYE EXAM Q1 YEAR( NO INBASKET) 05/30/2014 ??? DEPRESSION ACTION PLAN Q1 YR (NO INBASKET) 05/30/2014 ??? FIT Q1 YR (NO INBASKET) 08/21/2014 ??? A1C Q6 MO( NO INBASKET) 09/23/2014 ??? CREATININE Q1 YEAR (NO INBASKET) 10/27/2014 ??? PHQ-9 Q6 MONTHS (NO INBASKET) 12/08/2014 ??? INFLUENZA VACCINE (SYSTEM ASSIGNED) 02/09/2015 ??? MAMMO SCREEN Q2 YR (SYSTEM ASSIGNED) 05/27/2015 ??? LIPID MONITORING Q1 YEAR( NO INBASKET) 08/11/2015 ??? MICROALBUMIN Q1 YEAR( NO INBASKET) 08/11/2015 ??? TSH W/ FREE T4 REFLEX Q2 YEAR (NO INBASKET) 03/25/2016 ??? TETANUS IMMUNIZATION (SYSTEM ASSIGNED) 04/13/2016 ??? MIGRAINE ACTION PLAN,ONE TIME,NO INBASKET Completed For diabetic patients with hyperlipidemia, only choose diabetes. Composite cancer screening Chart review shows that this patient is due/due soon for the following Pap Smear and Fecal Colorectal (FIT) PAP NIL 05/05/2011 Past Surgical History Procedure Laterality Date ??? C spinal fusion,ant,ea adnl level 2004 L5, S1, Repeated in 2005 ??? C spinal fusion,ant,ea adnl level 2007 SI joints ??? C spinal fusion,ant,ea adnl level 2001 C5-C7 fused ??? section Is hysterectomy listed in surgical history? No Is mastectomy listed in surgical history? No Tobacco History History Smoking status ??? Never Smoker Smokeless tobacco ??? Never Used Summary: Patient is due/failing the following: FIT,PAP,DAP Action needed: PHONE CALL Type of outreach: Phone, spoke to patient. She will c/b,making dinner right now. Questions for provider review: None Please indicate office visit, lab, MTM, or nurse appt if needed. Indicate fasting or not fasting. Charlotte Mark CMA(AAMS) INATED BONE GRINDER documented in this encounter Plan of Treatment Not on filedocumented as of this encounter Visit Diagnoses Not on filedocumented in this encounter Care Teams Geospatial Systems Integrator Relationship Specialty Start Date End Date Selma Good APRN SUPERINTENDENT WAREHOUSE PCP - General 04/09/08 04/07/15 [address] [facility] [place] [id number] documented as of this encounter
--- OUTSIDE RECORDS SUMMARY | 2022-01-17 22:15 | XMS_ITS | Encounter Summary ---
:1965 Author Organization [facility] Address [address] [place] [address] Care Team Providers Name Role Phone Selma Good APRN MANAGER ENTRY Primary Care Provider [phone] Reason for Visit Reason Onset Date Comments Refill Request 09/21/2014 SIMVASTATIN 20MG Encounter Details Date Type Department Care Team Description 09/21/2014 [facility]ill [facility] Selma Anthony Refill Request [address] SEAN Angeles CNP (SIMVASTATIN 20MG) [place] [phone] [address] [facility] [phone] [facility] [place] [address] (Wo rk) Social [...] How often do you attend judaism or roman catholic Patient refused 08/08/2019 services? [...] Miscellaneous Notes Telephone Encounter - Selma Good APRN CNP - 09/29/2014 7:56 AM CDT Refilled x 1 mo, i would agree she is due for FU Telephone Encounter - Shante Joya RN - 09/24/2014 2:05 PM CDT Pt was advised to make an appt for ov during last refill on 08/18/14. Pt haven't made an appt for ov. Sent [facility] message to pt to make an appt with Selma. Unable to refill as per nurse protocol. Pended the med. Please review & sign. Refill request note from 08/18/14 by Selma: Duefor follow up OV, refilled x 1 mo Pharmacy is requesting refill on Simvastatin 20 mg qd: Last refill: 08/18/14(30 tabs with 0 refills) Last OV: 06/09/14(for DM f/u) Nurse Protocol Requirement: FLP Component Latest Ref Rng 08/10/2014 LDL Cholesterol Calculated 0 - 129 mg/dL 76 [place] rail technician Nurse Telephone Encounter - Marisa Matthew - 09/21/2014 2:33 PM CDT Refill request for: SIMVASTATIN 20 mg Last prescribed by provider: Date: 08/18/2014 Quantity 30 w/ 0 refills Last filled through pharmacy: Date: 08/18/2014 Pharmacy Comments: LUZ ELENA Matthew RT(R) documented in this encounter Plan of Treatment Not on filedocumented as of this encounter Visit Diagnoses Diagnosis Hyperlipidemia LDL goal <100 - Primary Other and unspecified hyperlipidemia documented in this encounter Care Teams Supervisor Pit And Auxiliaries Relationship Specialty Start Date End Date Danilo-Selma Mccoy, BRIDGE REPAIR CREW PERSON MANAGER ENTRY PCP - General 04/09/08 04/07/15 [address] [facility] [place] [address] documented as of this encounter
--- OUTSIDE RECORDS SUMMARY | 2022-01-17 22:15 | XMS_ITS | Encounter Summary ---
:1965 Author Organization [facility] Address [address] [place] [address] Care Team Providers Name Role Phone Selma Good APRN MATERIAL HANDLER 1ST SHIFT Primary Care Provider [phone] Reason for Visit Reason Onset Date Comments Refill Request 05/19/[address] 30 MG Encounter Details Date Type Department Care Team Description 05/19/2014 Refill [facility] Selma Hodges Refill Request 1440 [employer] JSEAN CNP (DULOXETINE HCL DR 30MG) [place] [phone] [facility] [phone] [facility] [place] [address] (Wo rk) Social History Tobacco [...] How often do you attend protestant or nondenominational Patient refused 08/08/2019 services? Do [...] this encounter Miscellaneous Notes Addendum Note - Kallie Golden RN - 05/26/2014 9:41 AM HEAD OF DIGITAL Addended by: KALLIE GOLDEN on: 05/26/2014 09:41 AM Modules accepted: Orders OF DIGITAL Telephone Encounter - Kallie Golden RN - 05/26/2014 9:35 AM CST Received another refill request. Reviewed medication list, Duloxetine was last rx'd 10/27/13 #90 w/ 1refill, patient is due for refills. Medication(s) approved per standing order. Kallie Golden, RN Last office visit: 04/29/14 Follow up notes: 6 weeks w/ labs- pt has lab only and appointment scheduled at the end of May DULOXETINE Office visit/ Refills: every 12 mths Tests: For Cymbalta- Annual B/P & AST/ALT BP Readings from Last 3 Encounters: 04/29/14 86/54 03/25/14 86/66 12/17/13 90/50 ALT 24 10/27/2013 OF DIGITAL Telephone Encounter - Mignon Beatty RN - 05/19/2014 3:33 PM CST Filled 04/28/14 for 90 days with refills Mignon Beatty RN OF DIGITAL Telephone Encounter - Eri Middleton - 05/19/2014 8:38 AM CST Refill request for: DULOXETINE 30 mg Last prescribed by provider: Date: 10/27/2013 Quantity 180 w/ 1 refills Last filled through pharmacy: Date: 02/19/2014 Pharmacy Comments: LUZ ELENA Middleton RT(R) OF DIGITAL documented in this encounter Plan of Treatment Not on filedocumented as of this encounter Visit Diagnoses Diagnosis Fibromyalgia Mylagia and myositis, unspecified documented in this encounter Care Teams Dentist Attendant Relationship Specialty Start Date End Date Danilo-Selma Mccoy, PHARMACY CONSULTANT MATERIAL HANDLER 1ST SHIFT PCP - General 04/09/08 04/07/[address] [facility] [address] [place], [place] [address] documented as of this encounter
--- OUTSIDE RECORDS SUMMARY | 2022-01-17 22:16 | XMS_ITS | Encounter Summary ---
:1965 Author Organization [facility] Address [address] [place] [address] Care Team Providers Name Role Phone Selma Good APRN PEBBLE MILL OPERATOR Primary Care Provider [phone] Vanda Guerrero MD Primary Care Provider [phone] Encounter Details Date Type Department Care Team Description 10/29/2011 Historic Results [facility] Heart Unknown, [facility] ider Clinic [address] [place] [address] Social History Tobacco Use Types Packs/Day Years [...] How often do you attend christian or hoahaoism Patient refused 08/08/2019 services? Do [...] Priority Date/Time Associated Diagnosis Comme nts ECHO CARDIAC - HIM SCAN 10/29/2011 12:00 AM CDT - ARCHIVE documented in this encounter Results ECHO CARDIAC - HIM SCAN - ARCHIVE (10/29/2011 12:00 AM CDT) Specimen (Source) Anatomical Location Collection Method / Collectio n Time Received Time / Laterality Volume 10/29/2011 Narrative This result has an attachment that is no t available. Provider Scan CV ECHO ORDERABLES documented in this encounter Visit Diagnoses Not on filedocumented in this encounter Care Teams Lime Supervisor Relationship Specialty Start Date End Date Selma Good APRN PEBBLE MILL OPERATOR PCP - General 04/09/08 04/07/15 [address] [facility] [place] [address] Vanda Guerrero MD PCP - General Internal Medicine 04/08/15 01/08/19 [address] [facility] [address] [place], [place] [address] documented as of this encounter
--- OUTSIDE RECORDS SUMMARY | 2022-01-17 22:16 | XMS_ITS | Encounter Summary ---
:1965 Author Organization [facility] Address [address] [place] [address] Care Team Providers Name Role Phone Selma Good APRN TOE STAPLER Primary Care Provider [phone] Reason for Visit Reason Comments Consult chronic vaginal itching x's 9 months - tried a steroid cream that made sx's worse - menstral cycle also seems to make sx's worse Encounter Details Date Type Department Care Team Description 10/18/2011 Office Visit [facility] Fermin Nelson Vulvar dystrophy (Primary Dx); Pino Alejandro MD Vaginal itching; [address] [place] [address] Menorrhagia [place] [address] [facility] [phone] [place] [id number] Social History Tobacco Use Types Packs/Day Years [...] How often do you attend congregational or gnosticist Patient refused 08/08/2019 services? Do [...] Sign Reading Time Taken Comments Blood Pressure 100/62 10/18/2011 10:02 AM CDT Pulse 60 10/18/2011 10:02 AM CDT Temperature - - Respiratory Rate - - Oxygen Saturation - - Inhaled Oxygen Concentration - - Weight 78 kg (172 lb) 10/18/2011 10:02 AM CDT Height - - Body Mass Index 31.46 07/27/2011 9:40 AM LEAD CARGOMAN documented in this encounter Progress Notes Kallie Mora - 10/18/2011 11:30 AM CDT Addended by: KALLIE MORA on: 10/18/2011 Modules accepted: Orders Fermin Nelson MD - 10/18/2011 11:09 AM CDT Addended by: FERMIN NELSON on: 10/18/2011 Modules accepted: Orders Fermin Nelson MD - 10/18/2011 11:08 AM CDT Here for evaluation of chronic vulvar itching -menses not regular over last several months -vulvar symptoms worsen just before and during menses -present for about 9 months -no known exposure to irritant, allergan, or infection -has tried hydrocortisone without benefit O: vulva; Erythema and hypertrophy from labia majora to introitus No white epithelium -labia minora L painted with Betadine -anesthetized with 2% lidocaine -3 mm punch biopsy; sent to pathology -cauterized with AgNO3 A; vulvar dystrophy Menorrhagia P: vulvar biopsy -likely triamcinolone/nystatin Ultrasound; may need further evaluation or therapy pending ultrasound Kallie Mora - 10/18/2011 10:04 AM CDT Chief Complaint Patient presents with ??? Consult chronic vaginal itching x's 9 months - tried a steroid cream that made sx's worse - menstral cycle also seems to make sx's worse Initial BP 100/62 Pulse 60 Wt 172 lb (78.019 kg) LMP 09/28/2011 Estimated Body mass index is 31.46 kg/(m^2) as calculated from the following: Height as of 12: 5' 2(1.575 m). Weight as of this encounter: 172 lb(78.019 kg).. BP completed using cuff size: regular Nurse assisted visit. Kallie Mora MA. documented in this encounter Plan of Treatment Not on filedocumented as of this encounter Procedures Procedure Name Priority Date/Time Associated Comments Diagnosis SURGICAL PATHOLOGY Routine 10/18/2011 1:42 PM Vaginal it guero Results for this EXAM CDT Vulvar dystrophy procedure a re in the results section. HC BIOPSY Routine 10/18/2011 11:08 Vulvar dystrophy SKIN/SUBQ/MUC MEM, AM CDT SINGLE LESION WET PREPARATION Routine 10/18/2011 10:20 Vaginal itching Resul ts for this AM CDT procedure are i n the results section. documented in this encounter Results Surgical pathology exam (10/18/2011 1:42 PM CDT) Component Value Ref Test Analysis Performed At [facility] Method Time Signature Copath Report Patient Name: MEGAN CHOI MR#: [id number] Specimen #: [id number] Collected: 10/18/2011 Received: 10/19/2011 Reported: 10/23/2011 07:01 Ordering Phy(s): FERMIN NELSON SPECIMEN(S): Vulva biopsy, left FINAL DIAGNOSIS: Vulva, side not specified, biopsy - Chronic inflammation/donna matitis with eosinophils. ??Negative for dysplasia and malignancy. ??See microscopic description. Electronically signed out by: Todd Mckeon M.D. CLINICAL HISTORY: Vaginal itching and dystrophy. GROSS: The specimen, labeled vulvar biopsy, consists of a 0.3 x l ess than 0.1 cm in thickness irregular fragment of tissue. ??Entirely sub mitted in one cassette. ??PATRICIO/ritu MICROSCOPIC: Additional deeper recut levels were also reevaluated. ??No f ungal organisms are seen on PAS stain with appropriate control. ?? The epithelium is mildly thickened and there is a superficial ch ronic and focal acute inflammatory infiltrate. ??Small numbers of neut rophils and lymphocytes are seen within the epithelium. ??Eosinophils ar e present focally in the dermis and also focally within the epidermis along with neutrophils. Some of the changes may represent lichen simplex chronicus. ??There are no diagnostic features of lichens sclerosus et atrophicus, d ysplasia, or malignancy. ??Inflammatory changes are not specific. ??Eosin ophils are present and the possibility of an allergic, subacute contact , or medication reaction should be clinically considered. ??Clini trisha correlation is required. PATRICIO/ritu DT/5-11-12 TESTING LAB LOCATION: [facility] [address] [place], [place] ??[id number] COLLECTION SITE: Client: [facility] Location: EAOB (R) Specimen Anatomical Collection Method Collection Time Receive d Time (Source) Location / / Volume Laterality 10/18/2011 1:42 PM 2 7:49 CDT AM CDT Fermin Nelson MD LAB - BEAKER AP Performing Organization Address City/[facility]/ZIP Code Phon e Number COPATH Wet prep (10/18/2011 10:20 AM CDT) [facility] gist Method Time Signature Specimen Vagina [place] Description [facility] Wet Prep No Trichomonas seen [place] Clue cells seen [facility] Yeast seen LAB Micro Report FINAL [place] Status 10/18/2011 [facility] Specimen Anatomical Collection Method Collection Time Receive d Time (Source) Location / / Volume Laterality 10/18/2011 10:20 10/18/2011 AM CDT 10:23 AM CDT Fermin Nelson MD LAB - MICRO GENERAL ORDERABL ES Performing Organization Address City/[facility]/ZIP Code Phon e Number [facility] [address] [facility] [place] [address] [facility] documented in this encounter Visit Diagnoses Diagnosis Vulvar dystrophy - Primary Other dystrophy of vulva Vaginal itching Pruritus of genital organs Menorrhagia Excessive or frequent menstruation documented in this encounter Care Teams Fire Alarm Dispatcher Relationship Specialty Start Date End Date Danilo-Selma Mccoy, APPAREL MERCHANDISER TOE STAPLER PCP - General 04/09/08 04/07/15 [facility] [place] [address] documented as of this encounter
--- OUTSIDE RECORDS SUMMARY | 2022-01-17 22:16 | XMS_ITS | Encounter Summary ---
:1965 Author Organization [facility] Address [address] [place] [address] Care Team Providers Name Role Phone Selma Good APRN FIELD CREW CHIEF Primary Care Provider [phone] Reason for Visit Reason Comments Hospital F/U Headache would like med Pain Overall whole body pain Encounter Details Date Type Department Care Team Description 11/15/2011 Office Visit [facility] Florentino, LBP (low ba ck pain) (Primary Dx); Pino Angeles APRN Migraine; [address] FIELD CREW CHIEF Cervical pain [place] [address] [facility] [phone] [facility] [place] [id number] Social History Tobacco Use Types Packs/Day Years [...] How often do you attend christianity or synagogue Patient refused 08/08/2019 services? Do [...] Sign Reading Time Taken Comments Blood Pressure 90/54 11/15/2011 1:50 PM CDT Pulse 72 11/15/2011 1:50 PM CDT Temperature 37.3 ??C (99.1 ??F) 11/15/2011 1:50 PM CDT Respiratory Rate 14 11/15/2011 1:50 PM CDT Oxygen Saturation - - Inhaled Oxygen Concentration - - Weight 77.6 kg (171 lb) 11/15/2011 1:50 PM CDT Height - - Body Mass Index 31.28 10/29/2011 1:10 AM CDT documented in this encounter Patient Instructions Patient InstructionsMcVaSelma Reardon NP - 11/15/2011 2:38 PM CDT Start the topamax daily tomorrow. See how that works for your pain. RETURN TO CLINIC in about 3 wks for diabetes follow up and pain follow up. We will likely increase your dose at that time. We may consider a referral to pain specialist if this plan doesn't work. documented in this encounter Progress Notes Selma Good NP - 11/15/2011 2:36 PM CDT SUBJECTIVE: Megan Choi, a 46 year old female scheduled an appointment to discuss the following issues: CC: LBP (LOW BACK PAIN) x year. Had previously been seen for this by ortho with negative work up andmri. She was also referred to PT, but she couldn't afford that. She also notes a long hx of CervicalPain [723.1L] and she did see neurology, dr. howard and she was told she was not a surgical candidate. She notes pain all over her body that is significantly interfering with her ADLs. She notes she is still able to bike ride and garden, but notes pain. Dr. Howard did note possibility of fibromyalgia. SHe did do a trial of neurontin without any relief of symptoms. Medical, social, surgical, and family histories reviewed. ROS: 5-Point Review of Systems Negative-- Except as stated above. OBJECTIVE: BP 90/54 Pulse 72 Temp(Src) 99.1 ??F (37.3 ??C) (Oral) Resp 14 Wt 171 lb (77.565 kg) LMP 10/30/2011 EXAM: GENERAL APPEARANCE: healthy, alert and no distress PSYCH: mentation appears normal and affect normal/bright ASSESSMENT 1. LBP (low back pain) 2. Migraine 3. Cervical pain PLAN: See avs Total time spent with patient 20 minutes, >50% time spent on counseling and education. Patient Instructions Start the topamax daily tomorrow. See how that works for your pain. RETURN TO CLINIC in about 3 wks for diabetes follow up and pain follow up. We will likely increase your dose at that time. We may consider a referral to pain specialist if this plan doesn't work. documented in this encounter Nursing Notes 11/15/2011 2:00 PM CDT >> LEXA ELIUD Wed Nov 15, 2011 1:51 PM Patient presents with: Hospital F/U Headache - would like med Pain - Overall whole body pain Initial BP 90/54 Pulse 72 Temp(Src) 99.1 ??F (37.3 ??C) (Oral) Resp 14 Wt 171 lb (77.565 kg) LMP 10/30/2011 Estimated Body mass index is 31.28 kg/(m^2) as calculated from the following: Height as of 10/28/11: 5' 2(1.575 m). Weight as of this encounter: 171 lb(77.565 kg).. BP completed using cuff size: regular. MAYNOR Marion documented in this encounter Plan of Treatment Not on filedocumented as of this encounter Visit Diagnoses Diagnosis LBP (low back pain) - Primary Lumbago Migraine Migraine, unspecified, without mention o f intractable migraine without mention of status migrainosus Cervical pain Cervicalgia documented in this encounter Care Teams Deblocker Relationship Specialty Start Date End Date Selma Good, COLLECTIONS REP FIELD CREW CHIEF PCP - General 04/09/08 04/07/15 [address] [facility] [place] [address] documented as of this encounter
--- OUTSIDE RECORDS SUMMARY | 2022-01-17 22:16 | XMS_ITS | Encounter Summary ---
:1965 Author Organization [facility] Address [address] [place] [address] Care Team Providers Name Role Phone Selma Good APRN CVT RN Primary Care Provider [phone] Encounter Details Date Type Department Care Team Description 06/05/2012 Orders Only [facility] Eag an Type 2 diabetes, HbA1C goal < 7% (H); [address] Hyperlipidemia LDL goal <100 [place] [phone] Social History Tobacco Use Types Packs/Day Years [...] How often do you attend adventism or zoroastrian Patient refused 08/08/2019 services? Do [...] Associated Comments Diagnosis ALBUMIN RANDOM URINE Routine 06/05/2012 7:48 AM Type 2 diabete s, Results for this QUANTITATIVE DIRECTOR OCCUPATIONAL HbA1C goal < 7% (H) procedur e are in the results section. LIPID REFLEX TO DIRECT Routine 06/05/2012 7:48 AM Type 2 diabe shirley, Results for this LDL PANEL DIRECTOR OCCUPATIONAL HbA1C goal < 7% (H) procedure are in Hyperlipidemia LDL the resul ts goal <100 section. HEMOGLOBIN A1C Routine 06/05/2012 7:48 AM Type 2 diabetes, Res ults for this DIRECTOR OCCUPATIONAL HbA1C goal < 7% (H) procedur e are in the results section. COMPREHENSIVE Routine 06/05/2012 7:48 AM Type 2 diabetes, Resu lts for this METABOLIC PANEL DIRECTOR OCCUPATIONAL HbA1C goal < 7% (H) proce dure are in the results section. documented in this encounter Results (ABNORMAL) Comprehensive metabolic panel (06/05/2012 7:48 AM DIRECTOR OCCUPATIONAL) athologist Signature Sodium 141 133 - 144 [place] mmol/L [facility] Potassium 4.1 3.4 - 5.3 [place] mmol/L [facility] Chloride 103 94 - 109 [place] mmol/L [facility] Carbon Dioxide 22 20 - 32 [place] mmol/L [facility] Anion Gap 16 6 - 17 [place] mmol/L [facility] Glucose 123 (H) 60 - 99 [place] mg/dL [facility] Urea Nitrogen 16 5 - 24 [place] mg/dL [facility] Creatinine 0.75 0.52 [facility] 1.[facility] mg/dL [facility] GFR Estimate 82 >60 [place] mL/min/1.7 [facility] m2 LAB GFR Estimate If >90 >60 [place] Black mL/min/1.7 [facility] m2 LAB Calcium 9.7 8.5 - 10.4 [place] mg/dL [facility] Bilirubin Total 0.6 0.2 - 1.3 [place] mg/dL [facility] Albumin 4.4 3.9 - 5.1 [place] g/dL [facility] Comment: Reference range changed on 02/10. Protein Total 7.5 6.8 - 8.8 g/dL [facility] Comment: As of 07, reference range reflects plasma specimen type. Alkaline Phosphatase 83 40 - 150 U/L [facility] ALT 28 0 - 50 U/L [facility] CLIN IC LAB AST 19 0 - 45 U/L [facility] LAB Specimen Anatomical Collection Method Collection Time Receive d Time (Source) Location / / Volume Laterality Blood specimen 06/05/2012 7:48 AM 012 7:53 (specimen) DIRECTOR OCCUPATIONAL AM DIRECTOR OCCUPATIONAL Selma Good APRN CVT RN LAB - BLOOD ORDERABLES Performing Organization Address City/State/ZIP Code Phon e Number [facility] [address] [place] [address] [facility] Microalbumin quantitative, random urine (06/05/2012 7:48 AM DIRECTOR OCCUPATIONAL) athologist Signature Creatinine 208 mg/dL [facility] Albumin Urine 13 mg/L [facility] mg/L [facility] Albumin Urine 6.25 0 - 25 [facility] mg/g Cr mg/g Cr CAMPUS LABS Specimen Anatomical Collection Method Collection Time Receive d Time (Source) Location / / Volume Laterality Urine specimen 06/05/2012 7:48 AM 012 7:53 (specimen) DIRECTOR OCCUPATIONAL AM DIRECTOR OCCUPATIONAL Selma Good APRN, CNP LAB - URINE ORDERABLES Performing Organization Address City/[facility]/ZIP Code Phon e Number [facility] [address] [place] [address] [facility]S (ABNORMAL) Lipid panel reflex to direct LDL (06/05/2012 7:48 AM DIRECTOR OCCUPATIONAL) athologist Signature Cholesterol 126 0 - 200 [facility] mg/dL CLINIC LAB Comment: LDL Cholesterol is the primary guide to therapy. The NCEP recommends further evaluation of: patients with cholesterol greater than 200 mg/dL if additional risk facto rs are present, cholesterol greater than 240 mg/dL, triglycerides greater than 1 50 mg/dL, or HDL less than 40 mg/dL. Triglycerides 84 0 - 150 mg/dL [facility] HDL Cholesterol 43 (L) 50 - 110 mg/dL [facility] LDL Cholesterol Calculated 66 0 - 129 mg/dL [facility] Comment: LDL Cholesterol is the primary guide to therapy: LDL-cholesterol goal in high risk patients is <100 mg/dL and in very high risk patients is <70 mg/dL. VLDL-Cholesterol 17 0 - 30 mg/dL [facility] Cholesterol/HDL Ratio 2.9 0.0 - 5.0 [facility] Specimen Anatomical Collection Method Collection Time Receive d Time (Source) Location / / Volume Laterality Blood specimen 06/05/2012 7:48 AM 012 7:53 (specimen) DIRECTOR OCCUPATIONAL AM DIRECTOR OCCUPATIONAL Selma Good APRN, CNP LAB - BLOOD ORDERABLES Performing Organization Address City/State/ZIP Code Phon e Number [facility] [address] [place] [address] [facility] Hemoglobin A1c (06/05/2012 7:48 AM DIRECTOR OCCUPATIONAL) athologist Signature Hemoglobin A1C 5.8 4.3 - 6.0 [facility] % CLINIC LAB Specimen Anatomical Collection Method Collection Time Receive d Time (Source) Location / / Volume Laterality Blood specimen 06/05/2012 7:48 AM 012 7:53 (specimen) DIRECTOR OCCUPATIONAL AM DIRECTOR OCCUPATIONAL Selma Good APRN, CNP LAB - BLOOD ORDERABLES Performing Organization Address City/State/ZIP Code Phon e Number [place] [id number] [facility] [place] [address] [facility] documented in this encounter Visit Diagnoses Diagnosis Type 2 diabetes, HbA1c goal < 7% (H) Type II or unspecified type diabetes sukhdev litus without mention of complication, not stated as uncontrolled Hyperlipidemia LDL goal <100 Other and unspecified hyperlipidemia documented in this encounter Care Teams Mower Sharpener Relationship Specialty Start Date End Date Selma Good APRN CNP PCP - General 04/09/08 04/07/15 [address] [facility] [place] [id number] documented as of this encounter
--- OUTSIDE RECORDS SUMMARY | 2022-01-17 22:16 | XMS_ITS | Encounter Summary ---
:1965 Author Organization [facility] Address [address] [place] [address] Care Team Providers Name Role Phone Selma Good APRN PHYS ASST Primary Care Provider Encounter Details Date Type Department Care Team Description 08/18/2012 Results Only Formerly [facility] Diego marshall MD Clinic [place] [address] [address] [address] [place] [address] [place] [address] [phone] Social History Tobacco Use Types Packs/Day Years [...] How often do you attend yazdanism or latter day Patient refused 08/08/2019 services? Do you belong to any clubs or organizations such as [employer] 08/08/2019 yazdanism groups, unions, fraternal or athletic [...] of this encounter Plan of Treatment Scheduled Orders Name Type Priority Associated Diagnoses Order S chedule US Pelvic Complete w Imaging Ordered : 08/18/2012 Transvaginal documented as of this encounter Visit Diagnoses Not on filedocumented in this encounter Care Teams Industrial Psychology Professor Relationship Specialty Start Date End Date Danilo-Selma Mccoy, HOUSEKEEPING SUPERVISOR HOTEL PHYS ASST PCP - General 04/09/08 04/07/[address] [facility] [address] [place], [place] [address] documented as of this encounter
--- OUTSIDE RECORDS SUMMARY | 2022-01-17 22:16 | XMS_ITS | Encounter Summary ---
:1965 Author Organization [facility] Address [address] [place] [address] Care Team Providers Name Role Phone Selma Good APRN [facility] Primary Care Provider [phone] Reason for Visit Reason Comments RECHECK Encounter Details Date Type Department Care Team Description 12/05/2011 Office Visit [facility] Florentino, Headaches, migraine (Primary Dx); Pino Angeles APRN Cervical pain [address] [place] [phone] 90[address] [facility] [phone] [facility] [place] [address] Social History Tobacco [...] How often do you attend temple or bahai Patient refused 08/08/2019 services? Do [...] Sign Reading Time Taken Comments Blood Pressure 100/58 12/05/2011 10:06 AM CDT Pulse 80 12/05/2011 10:06 AM CDT Temperature 36.7 ??C (98 ??F) 12/05/2011 10:06 AM CDT Respiratory Rate - - Oxygen Saturation - - Inhaled Oxygen Concentration - - Weight 76.2 kg (168 lb) 12/05/2011 10:06 AM CDT Height - - Body Mass Index 30.73 10/29/2011 1:10 AM CDT documented in this encounter Patient Instructions Patient InstructionsDanilo-Selma Mccoy NP - 12/05/2011 10:27 AM CDT We are going to continue to taper you up on the topiramate medication over the next month. You will gradually increase by 25 mg steps every week. I have filled your medication for 1 month. RETURN TO CLINIC in 1 month for follow up on this medication. documented in this encounter Progress Notes Selma Good NP - 12/05/2011 11:53 AM CDT SUBJECTIVE: Megan Choi, a 46 year old female scheduled an appointment to discuss the following issues: CC: HEADACHES, MIGRAINE, CERVICAL PAIN follow up. She started topamax and has had little improvementof symptoms. We also discussed a possible referral to pain clinic, which she states she is unable toafford at this time. She had previously been on 150 mg topiramate daily with good relief and would like to taper up to that point. No medication side effects noted. Medical, social, surgical, and family histories reviewed. ROS: 5-Point Review of Systems Negative-- Except as stated above. OBJECTIVE: BP 100/58 Pulse 80 Temp 98 ??F (36.7 ??C) Wt 168 lb (76.204 kg) LMP 10/30/2011 EXAM: GENERAL APPEARANCE: healthy, alert and no distress PSYCH: mentation appears normal and affect normal/bright ASSESSMENT/PLAN: Headaches, migraine (primary encounter diagnosis) Comment: contniue to taper up and we discussed holding at 150 mg daily and monitoring. She will return to clinic in 2 months as i am out of office in 1 mo and she will taper over the next 1 mo and maintain the mo after and follow up with me at that time Plan: topiramate (TOPAMAX) 25 MG tablet, topiramate (TOPAMAX) 25 MG tablet Cervical pain Comment: Plan: topiramate (TOPAMAX) 25 MG tablet, topiramate (TOPAMAX) 25 MG tablet Patient Instructions We are going to continue to taper you up on the topiramate medication over the next month. You will gradually increase by 25 mg steps every week. I have filled your medication for 1 month. RETURN TO CLINIC in 1 month for follow up on this medication. documented in this encounter Nursing Notes 12/05/2011 10:00 AM CDT >> EARLINE Newberry Dec 05, 2011 10:08 AM Patient presents with: RECHECK Initial BP 100/58 Pulse 80 Temp 98 ??F (36.7 ??C) Wt 168 lb (76.204 kg) LMP 10/30/2011 Estimated Body mass index is 30.73 kg/(m^2) as calculated from the following: Height as of 10/28/11: 5' 2(1.575 m). Weight as of this encounter: 168 lb(76.204 kg).. BP completed using cuff size: regular Earline Corea LPN documented in this encounter Plan of Treatment Not on filedocumented as of this encounter Visit Diagnoses Diagnosis Headaches, migraine - Primary Migraine, unspecified, without mention o f intractable migraine without mention of status migrainosus Cervical pain Cervicalgia documented in this encounter Care Teams Warranty Administrator Relationship Specialty Start Date End Date Selma Good APRN LICENSED REAL ESTATE BROKER PCP - General 04/09/08 04/07/15 [address] [facility] [place] [address] documented as of this encounter
--- OUTSIDE RECORDS SUMMARY | 2022-01-17 22:16 | XMS_ITS | Encounter Summary ---
:1965 Author Organization [facility] Address [facility] [place] [address] Care Team Providers Name Role Phone Selma Angelo APRN [facility] Primary Care Provider Reason for Referral Referral not Required - Closed Specialty Diagnoses / Procedures Referred By Contact Refer red To Contact Diagnoses External hemorrhoids with other complication Diego Nelson MD [facility] [address] [facility] [address] [place] [address] [place] [phone] Fax: Referral ID Status Reason Start Date Expiration Date Visits Requ ested Visits Authorized [id number] Closed 11/15/2011 05/13/2012 1 1 Reason for Visit Reason Comments Procedure EMB - follow-up regarding va ginal itching - nystatin cream did help with sx's - questions concerning area near retum - possible removal of a piece of skin near the rectum Encounter Details Date Type Department Care Team Description 11/15/2011 Office Visit [facility] Diego Nelson Menorrh agia (Primary Dx); Pino Alejandro MD External hemorrhoids with other complica tion [address] [facility] [place] [address] [facility] [phone] [place] [address] Social History Tobacco Use [...] How often do you attend episcopal or orthodoxy Patient refused 08/08/2019 services? Do [...] Sign Reading Time Taken Comments Blood Pressure 104/60 11/15/2011 9:42 AM CDT Pulse 72 11/15/2011 9:42 AM CDT Temperature - - Respiratory Rate - - Oxygen Saturation - - Inhaled Oxygen Concentration - - Weight 77.6 kg (171 lb) 11/15/2011 9:42 AM CDT Height - - Body Mass Index 31.28 10/29/2011 1:10 AM CDT documented in this encounter Progress Notes Diego Nelson MD - 11/15/2011 10:32 AM CDT Here for evaluation of abnormal bleeding -ultrasound; prominent endometrium -vulvar symptoms improved with triamcinolone/nystatin -requests removal of skin tag O: vulva-rash now resolved 'skin tag'-hemorrhoid Cervix; painted with Betadine -pipelle passed to 10 cm; moderate amount of tissue obtained and -sent to pathology A; abnormal bleeding External hemorrhoid Rash resolved P: await pathology for endometrium -patho-physiology of menorrhagia reviewed; therapies discussed including -OCP; Mirena; endometrial ablation reviewed -referral to colo-rectal surgeon for hemorrhoid removal Kallie Blanco - 11/15/2011 9:47 AM CDT Chief Complaint Patient presents with ??? Procedure EMB - follow-up regarding vaginal itching - nystatin cream did help with sx's - questions concerning area near retum - possible removal of a piece of skin near the rectum Initial BP 104/60 Pulse 72 Wt 171 lb (77.565 kg) LMP 10/30/2011 Estimated Body mass index is 31.28 kg/(m^2) as calculated from the following: Height as of 12: 5' 2(1.575 m). Weight as of this encounter: 171 lb(77.565 kg).. BP completed using cuff size: regular Nurse assisted visit. Kalile Blanco MA. documented in this encounter Plan of Treatment Scheduled Referrals Name Type Priority Associated Diagnoses Order S chedule COLORECTAL SURGERY Referral Routine External hemorrhoids O rdered: 11/15/2011 REFERRAL with other complication documented as of this encounter Procedures Procedure Name Priority Date/Time Associated Diagnosis Comme nts SURGICAL PATHOLOGY Routine 11/15/2011 11:37 AM Menorrhagia Re sults for this EXAM CDT procedure are i n the results section. documented in this encounter Results Surgical pathology exam (11/15/2011 11:37 AM CDT) Component Value Ref Test Analysis Performed At [facility] Range Method Time Signature Copath Report Patient Name: PADMINI CHOI MR#: [id number] Specimen #: [id number] Collected: 11/15/2011 Received: 11/16/2011 Reported: 11/17/2011 14:07 Ordering Phy(s): DIEGO NELSON Additional Phy(s): SELMA ANGELO SPECIMEN(S): Endometrial biopsy FINAL DIAGNOSIS: Endometrium, biopsy - ? 1. ??Fragments of proliferative pattern endometrium w ith focal surface ciliated metaplasia. ? 2. ??Negative for diagnostic polyp formation. ? 3. ??Negative for hyperplasia or malignancy. Electronically signed out by: Shruthi Orellana M.D. CLINICAL HISTORY: Thickened endometrium. GROSS: The specimen, labeled endometrial biopsy, consists of klaus ral brown-mi irregular soft tissue fragments with an aggregate dimension 1 x 0.5 x 0.5 cm. ??The specimen is partly mucoid in nature. ? ?ES, one cassette. ??SA/sg MICROSCOPIC: Microscopic examination is performed. SA/sg /11-17-11 TESTING LAB LOCATION: [address] ??[address] COLLECTION SITE: Client: [facility] Location: EAOB (R) Specimen Anatomical Collection Method Collection Time Receive d Time (Source) Location / / Volume Laterality 11/15/2011 11:37 11/16/2011 7:42 AM CDT AM CDT Diego SERRANO - [facility] Performing Organization Address City/State/ZIP Code Phon e Number COPATH documented in this encounter Visit Diagnoses Diagnosis Menorrhagia - Primary Excessive or frequent menstruation External hemorrhoids with other complica tion documented in this encounter Care Teams Resort Manager Relationship Specialty Start Date End Date Danilo-Selma Mccoy, SPINNING LATHE OPERATOR HYDRAULIC CYLINDER HANDLER PCP - General 04/09/08 04/07/15 [address] [facility] [place] [address] documented as of this encounter
--- OUTSIDE RECORDS SUMMARY | 2022-01-17 22:16 | XMS_ITS | Encounter Summary ---
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 Insurance changin g June 11, 2012 Encounter Details Date Type Department Care Team Description 05/29/2012 Office Visit [facility] Florentino Type 2 diab etes, HbA1C goal < 7% (H) (Primary Dx); Pino Angeles APRN Migraine headache; [address] [facility] Cervical pain; [place] [phone] [address] [facility] Hypertension goal BP (blood pressure) < 130/80; [phone] [facility] Hyperlipidemia LDL goal <100; [place] [address] GERD (gastroesophageal reflux disease); [phone] Breast cancer s creening; (Work) Need for prophylactic vaccination and in oculation against influenza Social History Tobacco Use Types [...] 08/08/2019 relatives? How often do you attend tenriism or hindu Patient refused 08/08/2019 services? Do you belong to any clubs or organizations such as No 08/08/2019 tenriism groups, [employer]luotian[employer]as, fraCodingpeople or athletic groups, or school groups? How [...] Sign Reading Time Taken Comments Blood Pressure 90/61 05/29/2012 10:32 AM ENVIRONMENTAL COMPLIANCE TECHNICIAN Pulse 73 05/29/2012 10:32 AM ENVIRONMENTAL COMPLIANCE TECHNICIAN Temperature 37 ??C (98.6 ??F) 05/29/2012 10:32 AM ENVIRONMENTAL COMPLIANCE TECHNICIAN Respiratory Rate - - Oxygen Saturation - - Inhaled Oxygen Concentration - - Weight 73.9 kg (163 lb) 05/29/2012 10:32 AM ENVIRONMENTAL COMPLIANCE TECHNICIAN Height 157.5 cm (5' 2) 05/29/2012 10:32 AM ENVIRONMENTAL COMPLIANCE TECHNICIAN Body Mass Index 29.81 05/29/2012 10:32 AM ENVIRONMENTAL COMPLIANCE TECHNICIAN documented in this encounter Patient Instructions Patient InstructionsSelma Good NP - 05/29/2012 11:08 AM ENVIRONMENTAL COMPLIANCE TECHNICIAN Schedule a lab only fasting appointment within the next week. Lab only appointment: Your next diabetes exam is due November,. Schedule the diabetes eye exam as soon as feasible. Drop by the list of the formulary of medications that [facility]'s work covers for free. I will look at it and be in contact with you about a medication that could help with mood and pain. RONMENTAL COMPLIANCE TECHNICIAN documented in this encounter Progress Notes Selma Good NP - 05/28/2012 10:49 AM CST SUBJECTIVE: Megan Choi is a 47 year old female who presents to clinic today for the following health issues: Diabetes Follow-up ?? Patient is checking blood sugars: once daily. Results: noon -90 ?? Symptoms of hypoglycemia (low blood sugar): none ?? Paresthesias (numbness or burning in feet) or sores: Yes-sporadic numbness ?? Diabetic eye exam within the last year: No ?? Breakfast eaten regularly: Yes ?? Patient counting carbs: No ?? Amount of exercise or daily activities, outside of work: 0 day(s) per week ?? Problems taking medications regularly No ?? Medication side effects: No Other concerns to address: Pt has a sore under right breast that has been there since mid-April Also, she notes she is under considerable stress recently r/t daughter and grandson living with her.She has tried to have them move out, but isn't working. She notes increased symptoms of depression, stating she sometimes wonders if she could just move away. Denies thoughts of self harm or harming others and denies suicidal ideation. Staff Signature:Beba Rivera MA ROS: C: NEGATIVE for fever, chills, change in weight E/M: NEGATIVE for ear, mouth and throat problems R: NEGATIVE for significant cough or SOB CV: NEGATIVE for chest pain, palpitations or peripheral edema Psych: per above Problem list, Medication list, Allergies, and Medical/Social/Surgical histories reviewed in [facility] andupdated as appropriate. OBJECTIVE: Temp(Src) 98.6 ??F (37 ??C) (Oral) Ht 5' 2 (1.575 m) Wt 163 lb (73.936 kg) BMI 29.81 kg/m2 ? No Body mass index is 29.81 kg/(m^2). GENERAL:: healthy, alert, well nourished, well hydrated, no distress HENT: ear canals- normal; TMs- normal; Nose- normal; Mouth- no ulcers, no lesions NECK: no tenderness, no adenopathy, no asymmetry, no masses, no stiffness; thyroid- normal to palpation RESP: lungs clear to auscultation - no rales, no rhonchi, no wheezes CV: regular rates and rhythm, normal S1 S2, no S3 or S4 and no murmur, no click or rub - ABDOMEN: soft, no tenderness, no hepatosplenomegaly, no masses, normal bowel sounds ASSESSMENT/PLAN: ASSESSMENT / PLAN: Type 2 diabetes, HbA1C goal < 7% (primary encounter diagnosis) Comment: she is due for lab work and will schedule lab only appt. Plan: Glucose Blood (ACCU-CHEK JANICE) STRP, metFORMIN (GLUCOPHAGE) 1000 MG tablet, Hemoglobin A1c, Lipid panel reflex to direct LDL, Microalbumin quantitative, random urine, Comprehensive metabolic panel, PHQ-9 ORDER - select when completing PHQ-9 Migraine headache Comment: Plan: MIGRAINE QUESTIONNAIRE Cervical pain Comment: Plan: Hypertension goal BP (blood pressure) < 130/80 Comment: Plan: lisinopril (PRINIVIL,ZESTRIL) 20 MG tablet Hyperlipidemia LDL goal <100 Comment: Plan: simvastatin (ZOCOR) 20 MG tablet, Lipid panel reflex to direct LDL GERD (gastroesophageal reflux disease) Comment: Plan: omeprazole (PRILOSEC) 20 MG capsule Breast cancer screening Comment: Plan: Mammo Screening digital (bilat) Need for prophylactic vaccination and inoculation against influenza Comment: Plan: Patient Instructions Schedule a lab only fasting appointment within the next week. Lab only appointment: Your next diabetes exam is due November,. Schedule the diabetes eye exam as soon as feasible. Drop by the list of the formulary of medications that [facility] work covers for free. I will look at it and be in contact with you about a medication that could help with mood and pain. 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 No Estimated Body mass index is 29.81 kg/(m^2) as calculated from the following: Height as of this encounter: 5' 2(1.575 m). Weight as of this encounter: 163 lb(73.936 kg).. BP completed using cuff size: regular Beba Rivera MA documented in this encounter Plan of Treatment Not on filedocumented as of this encounter Procedures Procedure Name Priority Date/Time Associated Diagnosis Comme nts MIGRAINE QUESTIONNAIRE Routine 05/28/2012 10:49 AM ENVIRONMENTAL COMPLIANCE TECHNICIAN Migrain e headache documented in this encounter Visit Diagnoses Diagnosis Type 2 diabetes, HbA1c goal < 7% (H) - P rimary Type II or unspecified type diabetes sukhdev litus without mention of complication, not stated as uncontrolled Migraine headache Migraine, unspecified, without mention o f intractable migraine without mention of status migrainosus Cervical pain Cervicalgia Hypertension goal BP (blood pressure) < 130/80 Unspecified essential hypertension Hyperlipidemia LDL goal <100 Other and unspecified hyperlipidemia GERD (gastroesophageal reflux disease) Esophageal reflux Breast cancer screening Breast screening, unspecified Need for prophylactic vaccination and in oculation against influenza documented in this encounter Care Teams Race And Sports Book Writer Relationship Specialty Start Date End Date Danilo-Selma Mccoy, GROUP CARE WORKER IMPLEMENTATION ADVISOR PCP - General 04/09/08 04/07/15 [address] [facility] [place] [address] documented as of this encounter
--- OUTSIDE RECORDS SUMMARY | 2022-01-17 22:16 | XMS_ITS | Encounter Summary ---
:1965 Author Organization [facility] Address [address] [place] [address] Care Team Providers Name Role Phone Selma Good APRN ELECTRICAL INSTALLATION SUPERVISOR Primary Care Provider [phone] Encounter Details Date Type Department Care Team Description 06/21/2011 Office Visit [facility] Diego Padilla NO SHOW (Primary Dx) [address] [place] [address] [address] [facility] [phone] [facility] [place] [address] Social History Tobacco [...] How often do you attend worship or mandaeism Patient refused 08/08/2019 services? Do [...] documented as of this encounter Progress Notes Diego Nelson MD - 06/26/2011 9:56 AM CST appt cancelled R GRINDER documented in this encounter Plan of Treatment Not on filedocumented as of this encounter Visit Diagnoses Diagnosis NO SHOW - Primary documented in this encounter Care Teams Punchboard Stuffer Relationship Specialty Start Date End Date Selma Good, SEAN ELECTRICAL INSTALLATION SUPERVISOR PCP - General 04/09/08 04/07/[address] [place] [address] documented as of this encounter
--- OUTSIDE RECORDS SUMMARY | 2022-01-17 22:16 | XMS_ITS | Encounter Summary ---
:1965 Author Organization [facility] Address [address] [place] [address] Care Team Providers Name Role Phone Selma Good APRN QUALIFICATIONS EXAMINER Primary Care Provider [phone] Reason for Visit Reason Onset Date Comments Refill Request 12/05/2012 metformin hcl 1000mg Encounter Details Date Type Department Care Team Description 12/05/2012 Refill [facility] Eag Selma Anthony Refill Request [address] Angeles CNP (metformin hcl 1000mg) [place] [address] [address] [facility] [phone] [facility] [place] [address] (Wo rk) Social [...] How often do you attend spiritism or mormonism Patient refused 08/08/2019 services? Do [...] this encounter Miscellaneous Notes Telephone Encounter - Samra Reece - 12/05/2012 1:40 PM CDT Last diabetic OV:05/29/12 Med requested:Metformin hcl 1000mg BID Refilled x 1 Last pertinent lab: A1C 5.8 06/05/2012 Due now for A1C CHOL 126 06/05/2012 HDL 43 06/05/2012 LDL 66 06/05/2012 TRIG 84 06/05/2012 CHOLHDLRATIO 2.9 06/05/2012 AST 19 06/05/2012 ALT 28 06/05/2012 CR 0.75 06/05/2012 BP Readings from Last 1 Encounters: 05/29/12 90/61 Samra Reece, RN documented in this encounter Plan of Treatment Not on filedocumented as of this encounter Visit Diagnoses Diagnosis Type 2 diabetes, HbA1c goal < 7% (H) - P rimary Type II or unspecified type diabetes sukhdev litus without mention of complication, not stated as uncontrolled documented in this encounter Care Teams Hoop Punch And Coiler Operator Helper Relationship Specialty Start Date End Date Selma Good, DOCK BUILDER QUALIFICATIONS EXAMINER PCP - General 04/09/08 04/07/[address] [facility] [address] [place], [place] [address] documented as of this encounter
--- OUTSIDE RECORDS SUMMARY | 2022-01-17 22:16 | XMS_ITS | Encounter Summary ---
:1965 Author Organization [place] Address [address] [place] [address] Care Team Providers Name Role Phone Selma Good APRN [employer]EL FRONT DESK ATTENDANT Primary Care Provider [phone] Reason for Visit Reason Comments Diabetes Recheck Medication Encounter Details Date Type Department Care Team Description 01/10/2012 Office Visit [facility] Florentino, Type 2 diab etes, HbA1C goal < 7% (H) (Primary Dx); Pino Angeles APRN Migraine [address] [place] [id number] [facility] [phone] [facility] [place] [address] Social History Tobacco [...] How often do you attend voodoo or confucianism Patient refused 08/08/2019 services? Do [...] Reading Time Taken Comments Blood Pressure 86/50 01/10/2012 9:40 AM CDT Pulse 84 01/10/2012 9:40 AM CDT Temperature 36.7 ??C (98 ??F) 01/10/2012 9:40 AM CDT Respiratory Rate - - Oxygen Saturation - - Inhaled Oxygen Concentration - - Weight 76.5 kg (168 lb 11.2 oz) 01/10/2012 9:40 AM CDT Height 157.5 cm (5' 2) 01/10/2012 9:40 AM CDT Body Mass Index 30.86 01/10/2012 9:40 AM CDT documented in this encounter Patient Instructions Patient InstructionsSelma Good NP - 01/10/2012 10:20 AM CDT RETURN TO CLINIC in 6 months. documented in this encounter Progress Notes Selma Good NP - 01/10/2012 9:39 AM CDT SUBJECTIVE: Meagn Choi is a 46 year old female seen for a follow up visit; she has diabetes Patient's glucose self monitoring/averages: blood glucose record WAS NOT brought in today, 1-2 times daily, are usually normal, values range 90-115, denies hypoglycemic reactions, Symptoms of low blood sugar: No and What is the date of your last eye exam? 2009, is being seen soon at eye doctor. Problems taking medications regularly? NO Side effects? NO What are you doing for exercise outside of work or your daily activities?YES: daily walks Do you eat breakfast regularly? YES: daily Do you count carbs? NO Wu Escobar LPN (Staff Signature) Other patient concerns: no BP Readings from Last 3 Encounters: 01/10/12 86/50 12/05/11 100/58 11/15/11 90/54 BP: na Health maintenance reviewed and appropriate orders placed? Yes Wu Escobar LPN A1C 5.5 10/29/2011 A1C 5.6 04/29/2011 A1C 6.0 08/03/2010 Recent Labs Lab Test 04/29/11 0815 04/02/10 0816 CHOL 123 130 HDL 40* 37* LDL 70 78 TRIG 63 74 CHOLHDLRATIO 3.1 3.5 Wt Readings from Last 3 Encounters: 01/10/12 168 lb 11.2 oz (76.522 kg) 12/05/11 168 lb (76.204 kg) 11/15/11 171 lb (77.565 kg) Current Outpatient Prescriptions Medication Sig ??? topiramate (TOPAMAX) 50 MG tablet Take 3 tablets by mouth daily. ??? topiramate (TOPAMAX) 25 MG tablet Take 3 tablets PO in the morning and 3 tablets PO in the evening for a total of 150 mg daily. ??? metFORMIN (GLUCOPHAGE) 1000 MG tablet Take 1 tablet by mouth 2 times daily (with meals). ??? ASPIRIN PO Take 81 mg by mouth daily. ??? lisinopril (PRINIVIL,ZESTRIL) 20 MG tablet Take 1 tablet by mouth daily. ??? simvastatin (ZOCOR) 20 MG tablet Take 1 tablet by mouth At Bedtime. ??? omeprazole (PRILOSEC) 20 MG capsule Take 1 capsule by mouth daily. Histories reviewed and updated in [facility]. ROS: Complete/DM ROS - C: NEGATIVE for fatigue, unexpected change in weight EYES: positive for worsening in visual acuity; is going to see medical staff physician soon, feels that vision has been decreasing incrementally since having Lasik surgery 5-6 years ago R: NEGATIVE for significant cough or shortness of breath CV: NEGATIVE for chest pain, palpitations or new or worsening peripheral edema P: NEGATIVE for changes in mood or affect OBJECTIVE: Vitals: BP 86/50 Pulse 84 Temp(Src) 98 ??F (36.7 ??C) (Oral) Ht 5' 2 (1.575 m) Wt 168 lb 11.2 oz (76.522 kg) BMI 30.86 kg/m2 BMIE= Body mass index is 30.86 kg/(m^2). GENERAL APPEARANCE: alert and no acute distress PSYCH: mentation appears normal and affect normal/bright EYES: EOMI, fundoscopic exam normal HENT: ear canals and TM's normal and nose and mouth without ulcers or lesions RESP: lungs clear to auscultation - no rales, rhonchi or wheezes CV: regular rate and rhythm, normal S1 S2, no S3 or S4 and no murmur, click or rub - EXT: no cyanosis or edema in lower extremities SKIN: no venous stasis changes Foot Exam: normal DP and PT pulses, no trophic changes or ulcerative lesions and normal sensory exam ASSESSMENT/PLAN: Megan was seen today for diabetes and recheck medication. Diagnoses and associated orders for this visit: Type 2 diabetes, hba1c goal < 7% - TSH with free T4 reflex Migraine - topiramate (TOPAMAX) 50 MG tablet; Take 3 tablets by mouth daily. Comment: Well controlled diabetes per recent labs and physical exam Plan: Return to clinic in 6 months for repeat Diabetic check and for routine maintenance exam with fasting labs. Migraine [346.90] Comment: Is on the topiramate and has titrated up to 150 mg with good control of migraines. Will refill Patient Instructions RETURN TO CLINIC in 6 months. documented in this encounter Nursing Notes 01/10/2012 9:30 AM CDT >> [facility] Nicholson Jan 10, 2012 9:48 AM Patient presents with: Diabetes Recheck Medication Initial BP 86/50 Pulse 84 Temp(Src) 98 ??F (36.7 ??C) (Oral) Ht 5' 2 (1.575 m) Wt 168 lb 11.2 oz (76.522 kg) BMI 30.86 kg/m2 Estimated Body mass index is 30.86 kg/(m^2) as calculated from the following: Height as of this encounter: 5' 2(1.575 m). Weight as of this encounter: 168 lb 11.2 oz(76.522 kg).. BP completed using cuff size: regular Wu Escobar LPN documented in this encounter Plan of Treatment Not on filedocumented as of this encounter Procedures Procedure Name Priority Date/Time Associated Diagnosis Comme nts TSH WITH FREE T4 Routine 01/10/2012 10:38 AM Type 2 diabetes, Results for this REFLEX CDT HbA1C goal < 7% (H) procedur e are in the results section. documented in this encounter Results TSH with free T4 reflex (01/10/2012 10:38 AM CDT) P athologist Signature TSH 1.55 0.4 - 5.0 [facility] LAB Specimen Anatomical Collection Method Collection Time Receive d Time (Source) Location / / Volume Laterality Blood specimen 01/10/2012 10:38 2 (specimen) AM CDT 10:40 AM CDT Selma Good WELDER JOURNEYMAN MOTEL FRONT DESK ATTENDANT LAB - BLOOD ORDERABLES Performing Organization Address City/State/ZIP Code Phon e Number [facility] [address] [place] [address] [facility] documented in this encounter Visit Diagnoses Diagnosis Type 2 diabetes, HbA1c goal < 7% (H) - P rimary Type II or unspecified type diabetes sukhdev litus without mention of complication, not stated as uncontrolled Migraine Migraine, unspecified, without mention o f intractable migraine without mention of status migrainosus documented in this encounter Care Teams Mechanical Maintenance Technician Relationship Specialty Start Date End Date Selma Good, SEAN MOTEL FRONT DESK ATTENDANT PCP - General 04/09/08 04/07/[address] [place] [address] documented as of this encounter
--- OUTSIDE RECORDS SUMMARY | 2022-01-17 22:16 | XMS_ITS | Encounter Summary ---
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 J, S[employer] COMMERCIAL LENDING RELATIONSHIP MANAGER [place] [id number] [facility] [phone] [facility] [place] [address] (Wo rk) Social History [...] How often do you attend shinto or confucianist Patient refused 08/08/2019 services? Do [...] Miscellaneous Notes Telephone Encounter - Raven Emmanuel - 04/01/2012 2:18 PM CDT Refill request received for topamax. Date last filled: 02/29/12 # 90 Date of last labs pertaining to med: 01/10/12 Last related office visit: 01/10/12 Due for f/u in 6 months. Wrong amt of med faxed at last fill. Re-faxed with correct amt. Iain Emmanuel RN. documented in this encounter Plan of Treatment Not on filedocumented as of this encounter Visit Diagnoses Diagnosis Migraine - Primary Migraine, unspecified, without mention o f intractable migraine without mention of status migrainosus documented in this encounter Care Teams Analysis Specialist Relationship Specialty Start Date End Date Selma Good, S[employer] COMMER[employer] LENDING RELATIONSHIP MANAGER PCP - General 04/09/08 04/07/15 [address] [facility] [place], [place] [address] documented as of this encounter
--- OUTSIDE RECORDS SUMMARY | 2022-01-17 22:16 | XMS_ITS | Encounter Summary ---
:1965 Author Organization [place] Address [address] [place] [id number] Care Team Providers Name Role Phone Selma Good APRN IDENTIFIER HORSE Primary Care Provider [phone] Reason for Visit Reason Comments Jaw Pain jaw pain, neck pain, arm valdo n all day. Encounter Details Date Type Department Care Team Description 10/28/2011 - Emergency [facility] Albert Calloway MD [facility] [address] [place], [place] [address] Chest pain; 10/29/[address] Ольга Hawkins MD [address] [place] [address] Hypertension goal BP (blood pressure) < 130/80; Surgical Vulvar dystrophy; [address] GERD (gastroesophageal reflu x disease); [place], [place] Hyperlipidemi a LDL goal <100 [id number] Social History Tobacco Use Types Packs/Day Years [...] How often do you attend judaism or nondenominational Patient refused 08/08/2019 services? Do you belong to any clubs or organizations such as No 08/08/2019 judaism groups, [employer]s, fra[employer]passer or athletic groups, or school groups? How [...] Sign Reading Time Taken Comments Blood Pressure 95/58 10/29/2011 9:00 AM CDT Pulse 63 10/28/2011 9:08 PM CDT Temperature 36 ??C (96.8 ??F) 10/29/2011 8:27 AM CDT Respiratory Rate 18 10/29/2011 8:27 AM CDT Oxygen Saturation 96% 10/29/2011 8:27 AM CDT Inhaled Oxygen Concentration - - Weight 80.3 kg (177 lb) 10/29/2011 1:10 AM CDT Height 157.5 cm (5' 2) 10/29/2011 1:10 AM CDT Body Mass Index 32.37 10/29/2011 1:10 AM CDT documented in this encounter Discharge Summaries Wisam Weiss MD - 10/29/2011 3:00 PM CDT Patient seen and examined.Medical records reviewed and plan of care from the previous attending physician earlier today was discussed with the patient. CT neck showed no evidence of dissection and patient was asymptomatic She was discharged in stable condition to care of her PCP documented in this encounter Discharge Instructions Discharge InstructionsTierra Sims RN - 10/29/2011 10:55 AM CDT Thank you for allowing [facility] to participate in your cares. 1 out of 3 patients will receive a survey in the mail, if you receive one we appreciate your feedback. documented in this encounter Medications at Time of Discharge Medication Sig Dispensed Refills Start Date End Date ASPIRIN PO Take 81 mg by mouth 0 daily. ACCU-CHEK MULTICLIX TEST 4 TIMES DAILY 100 Each 0 01/27/20 10 05/05/2014 LANCETS MISCIndications: Prediabetes lisinopril Take 1 tablet by 90 tablet 1 05/05/2011 05/28/20 12 (PRINIVIL,ZESTRIL) 20 MG mouth daily. tabletIndications: Hypertension goal BP (blood pressure) < 130/80 metformin (GLUCOPHAGE) Take 1 tablet by 180 tablet 1 011 12/06/2011 1000 MG mouth 2 times daily tabletIndications: Type 2 (with meals). diabetes, HbA1c goal < 7% (H) nystatin-triamcinolone Apply topically 2 30 g 1 201112/05/2011 (MYCOLOG II) times daily. Apply creamIndications: Vulvar sparingly to dystrophy affected area for 10-14 days omeprazole (PRILOSEC) 20 Take 1 capsule by 90 capsule 1 04/1205/28/2012 MG capsuleIndications: mouth daily. GERD (gastroesophageal reflux disease) simvastatin (ZOCOR) 20 MG Take 1 tablet by 90 tablet 1 04/1205/28/2012 tabletIndications: mouth At Bedtime. Hyperlipidemia LDL goal <100 documented as of this encounter Progress Notes Jessica Trujillo RN - 10/29/2011 7:30 AM CDT In Cardio for stress echo. documented in this encounter H&P Notes Ольга Hawkins MD - 10/29/2011 12:59 AM CDT CHIEF COMPLAINT: Right jaw and neck pain. HISTORY OF PRESENT ILLNESS: Ms. Wong is a 38-year-old female with a history of diabetes mellitus,previous DVT, hyperlipidemia and hypertension admitted through the emergency room for her concerns about the right jaw and neck pain. The patient developed right neck and jaw pain earlier today at approximately 10:00 a.m. She was apparently out shopping at that time. There was no injury or trauma or obvious inciting event. She has had pain almost all day long, which seems to wax and wane in intensity. She describes it as both sharp pain and a dull type sensation. The pain radiates down into her neckand then into her upper chest. She also apparently told the ER, she had some symptoms in her right arm as well. Her pain is not exacerbated with chewing or opening her jaw. She does report a right-sided headache as well. No vision changes. She reports she has had sporadic symptoms like this since 08/2011 but much more severe today than previously. The patient has no cardiac history, but does have a significant family history of cardiovascular disease. Her risk factors otherwise include diabetes mellitus and hyperlipidemia. The patient has never had any personal history of cardiac disease. In the ER this evening, presentation, her vital signs were notable for blood pressure 160/85. She isafebrile, heart rate 63, saturation 100% on room air. The patient's blood pressure improved while inthe ER and remained stable in the 100- 120 range. Her workup in the ER included basic labs notable for D-dimer that was normal. Troponin was negative. BMP normal. CBC normal. Further workup included a chest x-ray that appears without any significant abnormalities by my read. Await formal radiology readon this. She also had an EKG that appeared normal with no acute ST changes by my read. The patient continues to have some right jaw pain. She received some morphine in the ER which seems to be helping. PAST MEDICAL HISTORY: 1. DVT 2005. She was treated with 1 year of Coumadin. This occurred postoperatively. 2. Diabetes mellitus. 3. Reflux disease. 4. Hyperlipidemia, on simvastatin. 5. . 6. Spinal fusion. 7. Two back surgeries, one to her S1 joint and also her C-spine. 8. Possible hypertension history. The patient is on lisinopril, unclear if she is on this for diabetes mellitus and renal protection or blood pressure issues. CURRENT MEDICATIONS: 1. Mycolog cream p.r.n. 2. Lisinopril 20 mg daily. 3. Metformin 1000 mg twice a day. 4. Simvastatin 20 mg each day at bedtime. 5. Omeprazole 20 mg daily. 6. Topamax 25-50 mg 2 times daily as needed. 7. Aspirin 81 mg daily. DRUG ALLERGIES: Erythromycin. FAMILY HISTORY: CVA and heart disease in both her mother and father and in both sets of grandparents. SOCIAL HISTORY: The patient denies smoking. Minimal alcohol use, nothing significant. Denies any illicit drug use. Her is here this evening. REVIEW OF SYSTEMS: Please see HPI for details. Comprehensive review of systems of greater than 10-point review of systems otherwise negative besides as detailed above. PHYSICAL EXAMINATION: VITAL SIGNS: Blood pressure is currently 118/58, afebrile, heart rate 63, respirations 16, saturation 95% on room air. GENERAL: The patient appears in no acute distress. She appears nontoxic. She is awake, alert and oriented x3. She is a good historian. HEENT: Head is atraumatic. Sclerae are white. Eyelids are normal. Conjunctivae are normal. Pulses are intact. NECK: Supple. No cervical or supraclavicular lymphadenopathy. Palpation of her neck does reveal sometenderness along the sternocleidomastoid muscle on the right side. No palpable masses in that location. I palpated her jaw joint with her opening and closing her jaw and this did not cause any discomfort for her. There was no clicking noted on exam. I palpated her temporal artery on the right side andthat showed good pulses with no overlying erythema and no tenderness to palpation. CARDIOVASCULAR: Regular rate and rhythm. No murmurs. No carotid bruit on the left side, I thought I heard a faint carotid bruit on the right side. No lower extremity edema. LUNGS: Clear to auscultation bilaterally. No intercostal retractions or conversational dyspnea. ABDOMEN: Nontender, nondistended. Soft. No masses. No hepatosplenomegaly. EXTREMITIES: No edema. SKIN: Reveals no rashes. No jaundice. Skin is dry to touch. She has multiple tattoos the right upperextremity. NEUROLOGIC: Cranial nerves II-XII are intact. Moves all extremities appropriately. This specific testing of her upper extremities reveals 5/5 strength of manager community development, biceps, triceps of the bilateral upper extremities with sensation intact to light touch in bilateral upper extremities. PSYCHIATRIC: The patient awake, alert and oriented x3. Mood and affect are normal. LABORATORY DATA: See HPI for review of labs, and my interpretation of the EKG and chest x-ray. IMPRESSION AND PLAN: Ms. Wong is a 38-year-old female with a history of diabetes mellitus, hyperlipidemia, and possible seizure and possible history of hypertension as well as significant family history of cardiovascular disease who presents this evening with complaints of right jaw and neck pain and right-sided headache. She has had symptoms all day long waxing and waning in intensity. Unremarkable workup thus far in the ER and is being admitted to the hospitalist service for concerns about possible cardiac ischemia as a cause for her symptoms. 1. Right-sided neck and jaw pain: Given her significant risk factors for cardiac disease including family history and personal history of diabetes mellitus and hyperlipidemia, I think it is reasonable to admit her to the hospital to rule out for myocardial infarction and do an exercise stress test tomorrow assuming troponins remain negative. I am also concerned given her risk factors and cardiovascular history and her family about the possibility of neck vessel dissection as a cause of her symptoms as well. I did detect a slight bruit of her carotid on exam. I think it is prudent to rule this out as well. If the above workup is negative, symptoms may be simple muscle strain as she appears to have some tenderness with palpation overlying the sternocleidomastoid muscle itself and a bit of tenderness overlying the upper trapezius muscle. 2. Diabetes mellitus: Cover with insulin sliding scale p.r.n. Hold metformin in the setting of receiving contrast for neck CT scan. 3. Deep venous thrombosis history: Distant and related to surgery. PLAN: 1. Admit to observation status. 2. Aspirin daily. 3. Repeat troponin enzyme in the morning. She has had pain since 10:00 this morning, and I think 1 more troponin should be reasonable to complete rule out. 4. Telemetry monitoring. 5. Neck CT scan to rule out carotid dissection in light of her symptoms and risk factors. 6. Assuming and neck CT negative, would proceed with an exercise stress test in the morning. If thisis negative, I suspect the patient can be discharged later on this morning following workup above. ОЛЬГА HAWKINS MD MT: #[id number] Name: MEGAN WONG Account: [id number] : 1965 Admitted: [id number] Document: [id number] documented in this encounter ED Notes Ciera Sow RN - 10/28/2011 11:55 PM CDT Pt c/o nitro burning her tongue. Provided pt with water to rinse her mouth. made aware. Sherrie Benitez RN - 10/28/2011 10:45 PM CDT at bedside. Kalyan Calloway MD - 10/28/2011 9:50 PM CDT History Chief Complaint: Jaw Pain HPI: Megan Wong is a 46 year old female with a history of diabetes mellitus, femoral DVT, and GERD who presents with jaw pain. The patient states since 1000 today while shopping she has been experiencing constant dull waxing and waning right sided jaw and face pain that radiates down her neck to her right arm and right chest. She reports the right chest pain will occasionally radiate to her back. She denies any left chest or left arm pain. She reports she has been experiencing this right jaw painintermittently since August, every couple of weeks, and resolves on its own. She states nothing exacerbates or alleviates this pain. It is not exertional. She reports a headache localized to her right temporal area. She states she has not taken any medications for pain today. She denies any diaphoresis, shortness of breath, palpitations, leg swelling, abdominal pain, cough, nausea, vomiting, fevers, chills, or any other complaints. Cardiac Risk Factors: The patient has diabetes. The patient denies a history of hypertension or hyperlipidemia. The patient denies a history of tobacco use. The patient has a family history of heart disease. PE and DVT Risk Factors: Patient has a personal history of DVT. The patient denies any recent long travel, prolonged immobilization, recent surgery or recent leg trauma. Patient denies a history of tobacco use or cancer. Patient denies any history of control use. Allergies: Erythromycin Medications: Omeprazole Metformin Aspirin Past Medical History: DVT femoral Diabetes mellitus Seasonal allergic rhinitis Vulvar dystrophy Migraines GERD Obesity Past Surgical History: section L5S1 spinal fusion C5-C7 fusion Family / Social History: The patient denies any tobacco use. The patient reports rare alcohol use. The patient Reports a family history of hypertension, diabetes, hyperlipidemia, cardiac disease, andarthritis. Patient presents to the ED with her . Review of Systems Constitutional: Negative for fever, chills and diaphoresis. Respiratory: Negative for cough and shortness of breath. Cardiovascular: Negative for leg swelling. Gastrointestinal: Negative for nausea, vomiting and abdominal pain. Musculoskeletal: Positive for dull waxing and waning right sided jaw and face pain radiating down neck to right arm and right chest, occasionally radiating to back. Neurological: Positive for headaches (right temporal). All other systems reviewed and are negative. Physical Exam First Vitals: BP: 165/85 mmHg Pulse: 63 Temp: 97.7 ??F (36.5 ??C) Resp: 16 Height: 157.5 cm (5' 2) Weight: 74.844 kg (165 lb) SpO2: 100 % Physical Exam Constitutional: She is oriented to person, place, and time. She appears well- developed and well-nourished. Alert. Conversant. Non-toxic. HENT: Head: Atraumatic. Nose: Nose normal. Mouth/Throat: Oropharynx is clear and moist. Eyes: Conjunctivae and EOM are normal. Pupils are equal, round, and reactive to light. No scleral icterus. Neck: Normal range of motion. Neck supple. No tracheal deviation present. Cardiovascular: Normal rate, regular rhythm and normal heart sounds. Exam reveals no gallop and no friction rub. No murmur heard. symmetric radial adn DP artery pulses. NO carotid bruits. Pulmonary/Chest: Effort normal and breath sounds normal. No stridor. No respiratory distress. She has no wheezes. She has no rales. She exhibits no tenderness. No rhonchi Abdominal: Soft. Bowel sounds are normal. She exhibits no distension and no mass. No tenderness. Shehas no rebound and no guarding. Musculoskeletal: Normal range of motion. She exhibits no edema and no tenderness. No deformity Lymphadenopathy: She has no cervical adenopathy. Neurological: She is alert and oriented to person, place, and time. She has normal strength. No cranial nerve deficit or sensory deficit. GCS eye subscore is 4. GCS verbal subscore is 5. GCS motor subscore is 6. Normal coordination Skin: Skin is warm and dry. No rash noted. No pallor. Psychiatric: She has a normal mood and affect. Her behavior is normal. Judgment and thought content normal. Emergency Department Course ECG (2114): Indication: Chest pain Findings: Normal sinus rhythm, ventricular rate 62 bpm. TX Interval: 196 ms QRS Duration: 98 ms QT/QTc: 410/416 ms R wave axis: -27 Time EKG Read: 2114 Imaging: XR chest:Normal cardiac silhouette. Normal mediastinum. Clear lung valdez. No infiltrates, effusions, or pneumothoraces. Preliminary reading per Dr. Kalyan Calloway. Laboratory: CBC: WNL (WBC 8.1, HGB 12.3, PLT 221) BMP: glucose 102 (high), o/w WNL (CR 0.63) Troponin: <0.012 (neg) D-dimer: 0.4 (WNL) Interventions: Aspirin 324 mg tablet PO Normal Saline 1.0 L IV injection Nitrostat 0.4 mg tablet sublingual Tylenol 1000 mg tablet PO Morphine 4mg IV injection Emergency Department Course: I reviewed the patient's medical record. The patient was placed on a engine monitor and continuous pulse oximeter. IV inserted. 2230 The patient was seen and examined by myself. I discussed the course of care with the patient including laboratory and diagnostic studies. She understands and is agreeable to the plan. 0000 The patient states that the Nitrostat caused significant burning sensation under her tongue, and reports an increasing headache. Recheck. I discussed the laboratory and radiology results with the patient and she understands. The patient will be admitted to the hospital under the care of Dr. Hawkins for further evaluation and treatment. The patient was aware of this plan and was in agreement. Allquestions were answered prior to transfer to the admitting floor. [address] Hawkins regarding history, care and management of this patient and he agreed to accept the patient to his service. Impression & Plan Medical Decision Making: This is a 46 year old female who has a history of diabetes, hypertension, high cholesterol, and a strong family history of coronary disease who presents with right sided jaw pain and right sided chest pain radiating to her right arm. I was concerned about ACS. Her EKG does not show any STEMI or ST depression and her initial troponin is negative. However, since her symptoms have been waxing and waningall day I am not comfortable ruling her out with one troponin. I think that she needs to have serialtroponins and provocative testing for a complete workup. I think she would be a good candidate for the CPEU, however there are no CPEU beds tonight, so we are going to admit her to the Telemetry floor.I discussed this decision with the patient and her and they are in agreement. I talked to the hospitalist Dr. Hawkins, and he accepted the patient for observation. At this point, chest xray shows no evidence of pneumothorax, pneumonia, or cardiomegaly, and shows anormal mediastinum. This combined with her symmetric pulses and lack of traditional risk factors makes me have a extremely low suspicion for dissection. I do not think she needs a CT to look for that. We considered venous thromboembolism, especially in this woman who has had one prior postsurgical DVT, however I think that she is at low risk and her d dimer is negative so I think further workup is not indicated. No evidence for pericarditis. In terms of her jaw and neck pain, there are no carotid bruit. There are no associated neurologic deficits. I do not think that she needs an angiogram of her neck tonight. Diagnosis: 1. Chest pain. I, Neelam Morales, am serving as a scribe on 10/28/2011 at 10:31 PM to personally document services performed by Dr. Kalyan Calloway based on my observations and the provider's statements to me. Kalyan Calloway MD 10/29/11 0149 Tierra Ta RN - 10/28/2011 9:07 PM CDT Right sided jaw, face, neck and arm pain all day. Meds: Omeprazole, Metformin, Aspirin 325 ABCs intact. Patient is alert and oriented x3. documented in this encounter Miscellaneous Notes Initial Assessments - Ольга Hawkins MD - 10/30/2011 8:49 AM CDT Plan of Care - Tierra Sims RN - 10/29/2011 11:41 AM CDT Problem: IP GENERAL POC-ADULT,OB,BEHAVIORAL FVCPM Goal: Individualization/Patient-Specific Goal (Adult,OB,Behavioral The patient and/or their floor representative will achieve their patient-specific goals related to the plan of care. The patient-specific goals include: RN: Pt has a prior history of DVT. Lives at home with her . Outcome: Adequate for Discharge Date Met: 10/29/11 Discharge instructions reviewed with patient and . Pt verbalized understanding and denied questions. Pt instructed to hold metformen till 10/[address]. Escorted to front entrance via wc by volunteer transported by . Pharmacy-Admission Medication History - Larry Reyes [facility] - 10/29/2011 9:28 AM CDT Medication Reconciliation Complete. Plan of Care - Cristina Lacy RN - 10/29/2011 7:03 AM CDT Problem: IP GENERAL POC-ADULT,OB,BEHAVIORAL FVCPM Goal: Individualization/Patient-Specific Goal (Adult,OB,Behavioral The patient and/or their floor representative will achieve their patient-specific goals related to the plan of care. The patient-specific goals include: RN: Pt has a prior history of DVT. Lives at home with her . Outcome: No Change Trops are negative X2. Pt still having some right jaw pain. Tele is SR-SA. Pt is NPO for stress testthis a.m. VSS. documented in this encounter Plan of Treatment Pending Results Name Type Priority Associated Diagnoses Date/Ti me Echo stress test Imaging Routine 10/29/2011 8:10 AM CDT documented as of this encounter Procedures Procedure Name Priority Date/Time Associated Comments Diagnosis GLUCOSE BY METER Routine 10/29/2011 8:23 AM Resul ts for this CDT procedure are i n the results section. ECHO STRESS TEST Routine 10/29/2011 8:10 AM CDT ECHO STRESS TEST Routine 10/29/2011 7:50 AM Resul ts for this CDT procedure are i n the results section. TROPONIN I Timed 10/29/2011 6:15 AM Results f or this CDT procedure are i n the results section. HEMOGLOBIN A1C Timed 10/29/2011 6:15 AM Results for this CDT procedure are i n the results section. TROPONIN I Timed 10/29/2011 2:35 AM Results f or this CDT procedure are i n the results section. CTA NECK WITH STAT 10/29/2011 2:30 AM Results for this CONTRAST CDT procedure are i n the results section. GLUCOSE BY METER Routine 10/29/2011 1:24 AM Resul ts for this CDT procedure are i n the results section. XR CHEST 2 VIEWS STAT 10/28/2011 11:36 Results for this PM CDT procedure are i n the results section. CBC WITH PLATELETS & STAT 10/28/2011 9:55 PM R esults for this DIFFERENTIAL CDT procedure are i n the results section. TROPONIN I STAT 10/28/2011 9:55 PM Results f or this CDT procedure are i n the results section. D DIMER QUANTITATIVE Routine 10/28/2011 9:55 PM R esults for this CDT procedure are i n the results section. BASIC METABOLIC PANEL STAT 10/28/2011 9:55 PM Results for this CDT procedure are i n the results section. EKG 12-LEAD, TRACING STAT 10/28/2011 9:15 PM R esults for this ONLY CDT procedure are i n the results section. HIM ECG SCAN Routine 10/28/2011 documented in this encounter Results Glucose by meter (10/29/2011 8:23 AM CDT) athologist Signature Glucose 82 60 - 99 POINT OF CARE mg/dL TEST, GLUCOSE Comment: RN/Dr notified Specimen Anatomical Collection Method Collection Time Receive d Time (Source) Location / / Volume Laterality 10/29/2011 8:23 AM 2 4:45 CDT PM CDT Kalyan Calloway MD [facility] POCT Performing Organization Address City/State/ZIP Code Phon e Number FV POINT OF CARE TEST, GLUCOSE POINT OF CARE TEST, GLUCOSE Echo stress test (10/29/2011 7:50 AM CDT) [facility] gist Method Time Signature [facility] Interpretation Summary RESULTS This was a normal stress echocardiogram. PatientHeight: 62 in PatientWeight: 176 lbs SystolicPressure: 110 mmHg DiastolicPressure: 70 mmHg HeartRate: 60 bpm BSA 1.8 m^2 Baseline The patient is in normal sinus rhythm. Isolated TWI in aVL. No regional wall motion abnormalities noted. The visual ejection fraction is estimated at 55-60%. Stress The patient exhibited no chest pain during exercise. Exercise was stopped due to fatigue. The EKG portion of this stress test was negative for i nducible ischemia (see echo results below). The visual ejection fraction is estimated at >70%. Left ventricular cavity size decreases with exercise. Global LV systolic function augments with exercise. Normal resting wall motion and no stress-induced wall motion abnormality. Mitral Valve There is trace mitral regurgitation. Tricuspid Valve There is mild (1+) tricuspid regurgitation. Aortic Valve Normal tricuspid aortic valve. There is trace aortic regurgitation. Procedure Stress Echo Complete. Doppler Measurements & Calculations TR Max rahat: 231 cm/sec TR Max P mmHg Stress Results Protocol: ??Juanito Protocol Target HR: 146 bpm ?Maximum Predicted HR: 1 72 bpm Stage ?Duration(mm:ss) ??HR(bpm) ?? BP ?DOSE ??Comment ? 03:00 ?123 ? 110/60 ? 03:00 ?141 ? 130/70 ? 01:00 ?150 ? 170/80 ?MAX BP 170/80 RECOVERY ? 06:00 ?75 ?110/70 ?RPP 25,500 Stress Duration: 07:00 mm:ss ??Recovery Time: 06:00 mm:ss Maximum Stress HR: 150 bpm ?METS: 8 Interpreting Physician: ??Dane Monteiro MD electr onically signed on 10-29-2011 10:40:49 Anatomical Region Laterality Modality Echocardiography Specimen (Source) Anatomical Collection Method Collection Time Re ceived Time Location / / Volume Laterality 10/29/2011 7:50 AM CDT Ольга Hawkins MD CV ECHO ORDERABLES Troponin I (10/29/2011 6:15 AM CDT) athologist Signature Troponin I ES <0.012 0.000 - [facility] 0.034 ug/L [facility] Specimen Anatomical Collection Method Collection Time Receive d Time (Source) Location / / Volume Laterality Blood specimen 10/29/2011 6:15 AM 012 6:39 (specimen) CDT AM CDT Wisam Weiss MD LAB - BLOOD ORDERABLES Performing Organization Address City/[facility] Phon e Number [place] [address], [place] [address] [facility] Hemoglobin A1c (10/29/2011 6:15 AM CDT) athologist Signature Hemoglobin A1C 5.5 4.3 - 6.0 [facility] Specimen Anatomical Collection Method Collection Time Receive d Time (Source) Location / / Volume Laterality Blood specimen 10/29/2011 6:15 AM 012 6:38 (specimen) CDT AM CDT Wisam Weiss MD LAB - BLOOD ORDERABLES Performing Organization Address City/[facility] e [place] [address], [place] [address] [address] [phone] [place] [address] LAB Troponin I (10/29/2011 2:35 AM CDT) athologist Signature Troponin I ES <0.012 0.000 - [facility] 0.034 ug/L [facility] Specimen Anatomical Collection Method Collection Time Receive d Time (Source) Location / / Volume Laterality Blood specimen 10/29/2011 2:35 AM 012 2:36 (specimen) CDT AM CDT Ольга Hawkins MD LAB - BLOOD ORDERABLES Performing Organization Address City/[facility] Phon e [place] [address], [place] [address] [facility] CT Angiogram neck w & w/o contrast (10/29/2011 2:30 AM CDT) Anatomical Region Laterality Modality Neck, SUBRAD CT NEURO, SUBRAD CT NEURO, UMP CT NEURO Computed Tomography Specimen (Source) Anatomical Collection Method Collection Time Re ceived Time Location / / Volume Laterality 10/29/2011 2:30 AM CDT Impressions 10/29/2011 10:[address] ANGIOGRAM OF THE NECK WITHOUT AND WIT H CONTRAST ??October 29, 2011 2:30:00 AM HISTORY: Right neck and jaw pain. Rule o ut dissection. TECHNIQUE: Precontrast localizing scans were followed by CT angiography with an injection of 125 ??m L nonionic contrast material IV with scans through the neck. Images were transferred to a separate 3-D workstation where multiplanar reformatio ns and 3-D images were created. Estimates of carotid stenoses a re made relative to the distal internal carotid artery diameters except as noted. ?? COMPARISON: None. FINDINGS: There is an aberrant right sub clavian artery, generally a benign variant. Both carotid arteries ap pear normal. No evidence for dissection. Antegrade flow in normal jairo earing vertebral arteries. The right vertebral artery is small on a dev elopmental basis. The left vertebral artery is dominant. IMPRESSION: 1. Aberrant right subclavian which is a variant. 2. No evidence for carotid artery or dimple tebral artery dissection. 3. I agree with the preliminary report b y Dr. Thomas. Ольга Hawkins MD IMG CT ORDERABLES (ABNORMAL) Glucose by meter (10/29/2011 1:24 AM CDT) P athologist Signature Glucose 110 (H) 60 - 99 POINT OF CARE mg/dL TEST, GLUCOSE Specimen Anatomical Collection Method Collection Time Receive d Time (Source) Location / / Volume Laterality 10/29/2011 1:24 AM 2 1:30 CDT AM CDT Kalyan Calloway MD [facility] POCT Performing Organization Address City/State/ZIP Code Phon e Number FV POINT OF CARE TEST, GLUCOSE POINT OF CARE TEST, GLUCOSE Chest XR, PA & LAT (10/28/2011 11:36 PM CDT) Anatomical Region Laterality Modality Chest Other Specimen (Source) Anatomical Collection Method Collection Time Re ceived Time Location / / Volume Laterality 10/28/2011 11:36 PM CDT Impressions 10/29/2011 8:51 AM CDT CHEST TWO VIEW* ??October 28, 2011 11:37:00 PM HISTORY: ??chest pain, COMPARISON: ?None FINDINGS: ?No definite acute disease . Kalyan Calloway MD IMG DIAGNOSTIC IMAGING ORDER ILDEFONSO D dimer quantitative (10/28/2011 9:55 PM CDT) athologist Signature D Dimer 0.4 0.0 - 0.50 [facility] ug/ml [facility] Specimen Anatomical Collection Method Collection Time Receive d Time (Source) Location / / Volume Laterality 10/28/2011 9:55 PM 2 CDT 10:12 PM CDT Kalyan Calloway MD LAB - BLOOD ORDERABLES Performing Organization Address City/[facility] Phon e Number [facility] [address], [place] [address] [facility] Troponin I (now) (10/28/2011 9:55 PM CDT) athologist Signature Troponin I ES <0.012 0.000 - [facility] 0.034 ug/L [facility] Specimen Anatomical Collection Method Collection Time Receive d Time (Source) Location / / Volume Laterality Blood specimen 10/28/2011 9:55 PM 012 (specimen) CDT 10:12 PM CDT Kalyan Calloway MD LAB - BLOOD ORDERABLES Performing Organization Address City/[facility] Phon e Number [facility] [address], [place] [address] [facility] CBC + differential (10/28/2011 9:55 PM CDT) Patholo gist Method Time Signature WBC 8.1 4.0 - [facility] 11.0 [facility] 10e9/L [facility] RBC Count 4.09 3.8 - 5.2 [facility] 10e12/L [facility] Hemoglobin 12.3 11.7 - [facility] 15.7 g/dL [facility] Hematocrit 37.9 35.0 - [facility] 47.0 % [facility] MCV 93 78 - 100 [facility] MCH 30.1 26.5 - [facility] 33.0 pg [facility] MCHC 32.5 31.5 - [facility] 36.5 g/dL [facility] RDW 12.5 10.0 - [facility] 15.0 % [facility] Platelet Count 221 150 - 450 [facility] Diff Method Automated [facility] Method [facility] % Neutrophils 48.0 40 - 75 % [facility] % Lymphocytes 39.9 20 - 48 % [facility] % Monocytes 7.9 0 - 12 % [facility] % Eosinophils 3.1 0 - 6 % [facility] % Basophils 0.7 0 - 2 % [facility] % Immature 0.4 0 - 0.4 % [facility] Granulocytes [facility] Absolute 3.9 1.6 - 8.3 [facility] Neutrophil 10e9/L [facility] Absolute 3.3 0.8 - 5.3 [facility] Lymphocytes [address] LAB Absolute 0.6 0.0 - 1.3 [facility] Monocytes 10e9/[facility] Absolute 0.3 0.0 - 0.7 [facility] Eosinophils [facility] Absolute 0.1 0.0 - 0.2 [facility] Basophils [facility] Abs Immature 0.0 0 - 0.03 [facility] Granulocytes [address] [place] [address] LAB Specimen Anatomical Collection Method Collection Time Receive d Time (Source) Location / / Volume Laterality Blood specimen 10/28/2011 9:55 PM 012 (specimen) CDT 10:12 PM CDT Kalyan Calloway MD LAB - BLOOD ORDERABLES Performing Organization Address City/State/ZIP Code Phon e Number M [facility] [address], [place] [address] [facility] (ABNORMAL) Basic metabolic panel (BMP) (10/28/2011 9:55 PM CDT) P athologist Signature Sodium 142 133 - 144 [facility] mmol/L [facility] Potassium 3.6 3.4 - 5.3 [facility] mmol/L [facility] Chloride 100 94 - 109 [facility] mmol/L [facility] Carbon Dioxide 31 20 - 32 [facility] mmol/L [facility] Anion Gap 12 6 - 17 [facility] mmol/L [facility] Glucose 102 (H) 60 - 99 [facility] mg/dL [facility] Urea Nitrogen 16 5 - 24 [facility] mg/dL [facility] Creatinine 0.63 0.52 - [facility] 1.04 mg/dL [facility] GFR Estimate >90 >60 [facility] mL/min/1.[address] LAB GFR Estimate If >90 >60 [facility] Black mL/min/1.[address] LAB Calcium 9.2 8.5 - 10.4 [facility] mg/dL [facility] Specimen Anatomical Collection Method Collection Time Receive d Time (Source) Location / / Volume Laterality Blood specimen 10/28/2011 9:55 PM 012 (specimen) CDT 10:12 PM CDT Kalyan Calloway MD LAB - BLOOD ORDERABLES Performing Organization Address City/State/ZIP Code Phon e Number [place] [address], [place] [address] [facility] EKG 12 lead (10/28/2011 9:15 PM CDT) Component Value Ref Range Test Analysis Performed Pathologis t Method Time At Signature Ventricular Rate 62 BPM RADIOLOGY RESULTS Atrial Rate 62 BPM RADIOLOGY RESULTS TX Interval 196 ms RADIOLOGY RESULTS QRS Duration 98 ms RADIOLOGY RESULTS QT 410 ms RADIOLOGY RESULTS QTc 416 ms RADIOLOGY RESULTS P Obion 57 degrees RADIOLOGY RESULTS R AXIS -27 degrees RADIOLOGY RESULTS T Obion 48 degrees RADIOLOGY RESULTS Interpretation AGE AND RADIOLOGY ECG GENDER SPECIFIC RESULTS ECG ANALYSIS Interpretation Sinus rhythm RADIOLOGY ECG RESULTS Interpretation Normal ECG RADIOLOGY ECG RESULTS Interpretation Unconfirmed report - interpr etation of this ECG is computer generated - see RADIOLOGY ECG medical record for final interpretation RESULTS Specimen (Source) Anatomical Collection Method Collection Time Re ceived Time Location / / Volume Laterality 10/28/2011 9:15 PM CDT Kalyan Calloway MD ECG ORDERABLES Performing Organization Address City/State/ZIP Code Phon e Number RADIOLOGY RESULTS ECG - HIM ECG Scan (10/28/2011) Narrative This result has an attachment that is no t available. Thai Gonzales MD ECG ORDERABLES documented in this encounter Visit Diagnoses Diagnosis Chest pain Chest pain, unspecified Hypertension goal BP (blood pressure) < 130/80 Unspecified essential hypertension Vulvar dystrophy Other dystrophy of vulva GERD (gastroesophageal reflux disease) Esophageal reflux Hyperlipidemia LDL goal <100 Other and unspecified hyperlipidemia documented in this encounter Administered Medications Inactive Administered Medications - up to 3 most recent administrations Medication Order MAR Action Action Date Dose Rate Site 0.9 % sodium chloride IV New Bag 10/29/2011 2:23 AM CDT 1,000 mLs 75 mL/hr solution at 75 mL/hr, Intravenous, CONTINUOUS, Change to saline lock when PO well tolerated., Starting on 10/29/11 at 0115, Until 10/29/11 at 1322 acetaminophen (TYLENOL) tablet 1,000 mg Given 10/28/2011 11:56 PM CDT 1,000 mg 1,000 mg, Oral, EVERY 4 HOURS PRN, fever, Starting on 10/28/11 at 2257 aspirin chewable tablet 324 mg Given 10/28/2011 10:15 PM CDT 324 mg 324 mg, Oral, ONCE, On 10/28/11 at 2215, For 1 dose aspirin EC tablet 81 mg Given 10/29/2011 9:16 AM CDT 81 mg 81 mg, Oral, DAILY, First dose on 10/29/11 at 0900 iopamidol (ISOVUE-370) 76% solution 125 mL Given 10/29/2011 2:04 AM CDT 125 mLs 125 mL, Intravenous, ONCE, On 10/29/11 at 0130, For 1 dose morphine injection 4 mg Given 10/29/2011 12:07 AM CDT 4 mg 4 mg, Intravenous, ONCE, On 10/29/11 at 0015, For 1 dose nitroglycerin (NITROSTAT) SL tablet 0.4 mg Given 10/28/2011 11:48 PM CDT 0.4 mg 0.4 mg, Sublingual, EVERY 5 MIN PRN, chest pain, Starting on 10/28/11 at 2257, For 3 doses omeprazole (priLOSEC) capsule 20 mg Given 10/29/2011 9:00 AM CDT 20 mg 20 mg, Oral, DAILY, First dose on 10/29/11 at 0900 documented in this encounter Active and Recently Administered Medications Times are shown in CDT. Scheduled Medication Order 10/27/2011 10/28/2011 10/29/2011 aspirin chewable tablet 324 mg (COMPLETED) 2215 (Given - Provider: Jeanine Collazo, RERE) 324 mg, Oral, ONCE, 10/28/11 at 2215, For 1 dose aspirin EC tablet 81 mg (CANCELED) 0916 (Given - Provider: Tierra Sims, RERE) 81 mg, Oral, DAILY, First dose on 10/29/11 at 0900 iopamidol (ISOVUE-370) 76% solution 125 mL (COMPLETED) 0204 (Given - Provider: Mady Mejia) 125 mL, Intravenous, ONCE, 10/29/11 at 0130, For 1 dose morphine injection 4 mg (COMPLETED) 0007 (Given - Provider: Ciera Sow, RERE) 4 mg, Intravenous, ONCE, 10/29/11 at 0015, For 1 dose omeprazole (priLOSEC) capsule 20 mg (CANCELED) 0900 (Given - Provider: Tierra Sims, RERE) 20 mg, Oral, DAILY, First dose on 10/29/11 at 0900 Continuous Medication Order 10/27/2011 10/28/2011 10/29/2011 0.9 % sodium chloride IV solution (CANCELED) 022 (New Bag - Provider: Cristina Lacy, RERE) 1,000 mL, Intravenous, at 75 mL/hr, CONT INUOUS, Starting 10/29/11 at 0115, Change to saline lock when PO well tolerated. PRN Medication Order 10/27/2011 10/28/2011 10/29/2011 acetaminophen (TYLENOL) tablet 1,000 mg (CANCELED) 2356 (Given - Provider: Ciera Sow, RERE) 1,000 mg, Oral, EVERY 4 HOURS PRN, fever, Starting 10/28/11 a t 2257 nitroglycerin (NITROSTAT) SL tablet 0.4 mg (CANCELED) 2348 (Given - Provider: Ciera Sow, RERE) 0.4 mg, Sublingual, EVERY 5 MIN PRN, doug st pain, Starting 10/28/11 at 2257, For 3 doses documented in this encounter Care Teams Asbestos Coverer Relationship Specialty Start Date End Date Selma Good, CONTAINER CRANE OPERATOR IDENTIFIER HORSE PCP - General 04/09/08 04/07/[address] [place] [address] documented as of this encounter
--- OUTSIDE RECORDS SUMMARY | 2022-01-17 22:16 | XMS_ITS | Encounter Summary ---
:1965 Author Organization [facility] Address [address] [place] [address] Care Team Providers Name Role Phone Selma Good APRN SUPERVISOR DECORATING Primary Care Provider [phone] Encounter Details Date Type Department Care Team Description 10/23/2011 Orders Only [facility] Vulvar dystrophy [facility] MD Flavia (Primary Dx) [place] [address] [place] [address] Flex [facility] [address] [place] [address] [place], [place] [phone] [address] (Work) [phone] Social History Tobacco Use Types Packs/Day Years [...] 08/08/2019 relatives? How often do you attend quaker or holiness Patient refused 08/08/2019 services? Do you belong to any clubs or organizations such as No 08/08/2019 quaker groups, unions, fraternal or athletic groups, or [...] as of this encounter Visit Diagnoses Diagnosis Vulvar dystrophy - Primary Other dystrophy of vulva documented in this encounter Care Teams Machine Adjuster Helper Relationship Specialty Start Date End Date Selma Good, CYTOLOGY MANAGER SUPERVISOR DECORATING PCP - General 04/09/08 04/07/[address] [place], [place] [address] documented as of this encounter
--- OUTSIDE RECORDS SUMMARY | 2022-01-17 22:16 | XMS_ITS | Encounter Summary ---
:1965 Author Organization [facility] Address [address] [place] [address] Care Team Providers Name Role Phone Selma Good APRN [facility] Primary Care Provider [phone] Reason for Visit Reason Comments Diabetes Encounter Details Date Type Department Care Team Description 12/10/2012 Office Visit [facility] Florentino, Type 2 diab etes, HbA1C goal < 7% (H) (Primary Dx); Pino Angeles APRN Major depressive disorder, r ecurrent (H); [address] [facility] Hyperlipidemia LDL goal <100; [place] [phone] [address] [facility] Hypertension goal BP (blood pressure) < 130/80; [phone] [facility] [place] [id number] Social History Tobacco Use Types Packs/Day Years [...] How often do you attend orthodox or advent Patient refused 08/08/2019 services? Do [...] Sign Reading Time Taken Comments Blood Pressure 70/50 12/10/2012 10:35 AM CDT Pulse 72 12/10/2012 10:35 AM CDT Temperature 36.7 ??C (98 ??F) 12/10/2012 10:35 AM CDT Respiratory Rate - - Oxygen Saturation - - Inhaled Oxygen Concentration - - Weight 70.3 kg (155 lb) 12/10/2012 10:35 AM CDT Height 157.5 cm (5' 2) 12/10/2012 10:35 AM CDT Body Mass Index 28.35 12/10/2012 10:35 AM CDT documented in this encounter Patient Instructions Patient InstructionsSelma Good NP - 12/10/2012 11:02 AM CDT Let's increase the cymbalta dose today. I have faxed over a new prescription. Follow up with me in 2months. We will decrease your lisinopril dose today to see if that helps with the cough. We'll recheck your BP at your next visit, but you can check your BP at home and let me know if it goes up. You'll be due for follow up diabetes visit and non-fasting labs in May. documented in this encounter Progress Notes Selma Good NP - 12/10/2012 10:35 AM CDT SUBJECTIVE: Megan Choi is a 47 year old female who presents to clinic today for the following health issues: Diabetes Follow-up ?? Patient is checking blood sugars: twice daily. Results: am - 79 supper - 110 Symptoms of hypoglycemia (low blood sugar): dizzy, weak, when she gets into bed ?? Paresthesias (numbness or burning in feet) or sores: No ?? Diabetic eye exam within the last year: Yes ?? Breakfast eaten regularly: No ?? Patient counting carbs: No ?? Amount of exercise or daily activities, outside of work: 5 day(s) per week ?? Problems taking medications regularly No ?? Medication side effects: No Other concerns to address: Right arm/shoulder pain, cannot raise above her head, she quilts a lot and thinks it may be the cause. Dizziness when she gets into bed. Hx of chronic pain from back and fibromyalgia and depression. She is on cymbalta, and she notes her depression is not so bad, but her pain is not managed. Has been losing weight tghrough diet and exercise. Mild cough x 4 months. Beba Rivera MA ROS: C: NEGATIVE for fever, chills, change in weight E/M: NEGATIVE for ear, mouth and throat problems R: NEGATIVE for significant cough or SOB CV: NEGATIVE for chest pain, palpitations or peripheral edema Problem list, Medication list, Allergies, and Medical/Social/Surgical histories reviewed in EPIC andupdated as appropriate. OBJECTIVE: BP 70/50 Pulse 72 Temp 98 ??F (36.7 ??C) (Oral) Ht 5' 2 (1.575 m) Wt 155 lb (70.308 kg) BMI 28.35 kg/m2 ? No Body mass index is 28.35 kg/(m^2). GENERAL: healthy, alert, well nourished, well hydrated, no [...] no murmur, no click or rub - PSYCH: Alert and oriented times 3; speech- coherent , normal rate and volume; able to articulate logical thoughts, able to abstract reason, no tangential thoughts, no hallucinations or delusions, affect- normal ASSESSMENT/PLAN: Diabetes Type II, A1c Controlled, non-insulin dependent Associated with the following complications Renal Complications: None Ophthalmologic Complications: None Neurologic Complications: None Peripheral Vascular Complications: None Other: None Plan: No changes in the patient's current treatment plan, labs reviweed today and questions answered. 296.30 Major depressive disorder, recurrent Comment: stable at this point, she notes some house stressors that should subside Plan: 272.4 Hyperlipidemia LDL goal <100 Comment: well controlled Plan: 401.9 Hypertension goal BP (blood pressure) < 130/80 Comment: BP is noted slightly low without symptoms of orthostatic. Because of mild cough which could be lisinopril OR allergies, will decrease dose today and monitor. We briefly discussed otc antihistamine to r/o allergies, but will evaluate at next ov Plan: lisinopril (PRINIVIL,ZESTRIL) 5 MG tablet 729.1 Fibromyalgia Comment: pain not well controlled today. Will increase cymbalta and follow up in 2 mo Plan: DULoxetine (CYMBALTA) 30 MG capsule Patient Instructions Let's increase the cymbalta dose today. I have faxed over a new prescription. Follow up with me in 2months. We will decrease your lisinopril dose today to see if that helps with the cough. We'll recheck your BP at your next visit, but you can check your BP at home and let me know if it goes up. You'll be due for follow up diabetes visit and non-fasting labs in May. Selma Good NP, SOLDER CREAM MAKER [facility] documented in this encounter Nursing Notes 12/10/2012 10:30 AM CDT >> NEERAJ Newberry Dec 10, 2012 10:49 AM Patient presents with: Diabetes Initial BP 70/50 Pulse 72 Ht 5' 2 (1.575 m) Wt 155 lb (70.308 kg) BMI 28.35 kg/m2 ? No Estimated Body mass index is 28.35 kg/(m^2) as calculated from the following: Height as of this encounter: 5' 2(1.575 m). Weight as of this encounter: 155 lb(70.308 kg). BP completed using cuff size: regular Beba [...] Major depressive disorder, recurrent epi sode, unspecified Hyperlipidemia LDL goal <100 Other and unspecified hyperlipidemia Hypertension goal BP (blood pressure) < 130/80 Unspecified essential hypertension Fibromyalgia Mylagia and myositis, unspecified documented in this encounter Care Teams Customer Service Correspondence Clerk Relationship Specialty Start Date End Date Selma Good, PORTABLE SAWMILL OPERATOR WHITESMITH PCP - General 04/09/08 04/07/[address] [place], [place] [address] documented as of this encounter
--- OUTSIDE RECORDS SUMMARY | 2022-01-17 22:16 | XMS_ITS | Encounter Summary ---
:1965 Author Organization [facility] Address [address] [place] [id number] Care Team Providers Name Role Phone Selma Good APRN PLASTER MACHINE TENDER Primary Care Provider [phone] Reason for Visit Reason Comments UTI Recheck Medication Encounter Details Date Type Department Care Team Description 02/07/2013 Office Visit [facility] [place] UTI (lower urinary tract infection) (Primary Dx); Pino Angeles APRN Dysuria; [address] PLASTER MACHINE TENDER Nail fungus; DAV[place] [phone] [address] [facility] Hypertension goal BP (blood pressure) < 130/80; [phone] [facility] DAVID Gilbert [id number] Social History Tobacco Use Types Packs/Day Years [...] How often do you attend taoism or cheondoism Patient refused 08/08/2019 services? Do [...] Reading Time Taken Comments Blood Pressure 110/60 02/07/2013 3:56 PM CDT Pulse 66 02/07/2013 3:56 PM CDT Temperature 36.7 ??C (98 ??F) 02/07/2013 3:56 PM CDT Respiratory Rate - - Oxygen Saturation - - Inhaled Oxygen Concentration - - Weight 70.8 kg (156 lb) 02/07/2013 3:56 PM CDT Height 157.5 cm (5' 2) 02/07/2013 3:56 PM CDT Body Mass Index 28.53 02/07/2013 3:56 PM CDT documented in this encounter Patient Instructions Patient InstructionsSelma Good, MAURICIO - 02/07/2013 4:27 PM CDT Images from the original note were not included. Urinary Tract Infection What is a urinary tract infection? A urinary tract infection (UTI) is an infection in the urinary tract. The urinary tract includes the: kidneys ureters (the tubes draining urine from the kidneys to the bladder) bladder urethra (the tube that drains urine from the bladder). Any or all of these parts of the urinary tract can get infected. How does it occur? Urinary tract infection is usually caused by bacteria. Normally the urinary tract does not have any bacteria or other organisms in it. Bacteria that cause UTI often spread from the rectum or vagina to the urethra and then to the bladder or kidneys. Urinary tract infection is more common in women than men because the urethra is shorter in women. This makes it easier for bacteria to move up to the bladder. Sometimes bacteria spread from another part of the body through the bloodstream to the urinary tract. Some of the things that can lead to an infection are: a blockage in the urinary tract, such as a kidney stone sexual activity getting older, when it may get harder to empty and flush out the bladder completely. Women are more likely to have an infection if they: are newly sexually active or have a new sex partner are past menopause are have a history of diabetes, a problem with the immune system, sickle-cell anemia, stroke, kidney stones, or any illness that makes it hard to empty the bladder completely. What are the symptoms? The symptoms of UTI may include: urinating more often feeling an urgent need to urinate pain or discomfort (burning) when you urinate urine that smells bad pain in the lower pelvis, stomach, lower back, or side urine that looks cloudy or reddish fever or chills sweats nausea and vomiting leaking of urine change in amount of urine, either more or less pain during sex. How is it diagnosed? Your healthcare provider will ask about your symptoms and medical history. Your provider will examine you. The exam may include a pelvic exam. Your provider will check for tenderness of the bladder or kidney. A sample of your urine may be tested for bacteria and pus. If you are having fever and are feeling very ill, you may have a blood test to look for signs of more serious infection. If you keep having infections or symptoms after treatment, your provider may suggest these tests: An intravenous pyelogram (IVP). An IVP is a special type of X-ray of the kidneys, ureters, and bladder. An ultrasound scan to look at the urinary tract. A cystoscopy. This is an exam of the inside of the urethra and bladder with a small lighted instrument. It is usually done by a specialist called a urologist. How is it treated? UTIs are usually treated with antibiotics. Your provider can also prescribe a medicine called Pyridium to relieve burning and discomfort. (Pyridium turns your urine a dark orange color.) If the infection is causing fever, pain, or vomiting or you have a severe kidney infection, you may need to stay at the hospital for treatment. How long will the effects last? With antibiotic treatment, the symptoms of a bacterial infection stop in 1 to 3 days. Take all of the antibiotic your healthcare provider prescribes, even after the symptoms go away. If you stop takingyour medicine before the scheduled end of treatment, the infection may come back Without treatment, the infection can last a long time. If it is not treated, the infection can permanently damage the bladder and kidneys, or it may spread to the blood. If the infection spreads to theblood, it can be fatal. How can I take care of myself? Follow your healthcare provider's treatment. Take all of the antibiotic that your healthcare provider prescribes, even when you feel better. Do not take medicine left over from previous prescriptions. Drink more fluids, especially water, to help flush bacteria from your system. If you have a fever: Take aspirin or acetaminophen to control the fever. Check with your healthcare provider before you give any medicine that contains aspirin or salicylates to a child or teen. This includes medicines like baby aspirin, some cold medicines, and Pepto Bismol. Children and teens who take aspirin are at risk for a serious illness called Medina's syndrome. Keep a daily record of your temperature. A hot water bottle or an electric heating pad on a low setting can help relieve cramps or lower abdominal or back pain. Keep a cloth between your skin and the hot water bottle or heating pad so that you don't burn your skin. Soaking in a tub for 20 to 30 minutes may help relieve any back or abdominal pain. Follow your healthcare provider's directions for a follow-up urine test. Your provider may want to test your urine soon after you finish taking the antibiotic. Call your healthcare provider right away if: You keep having symptoms after taking an antibiotic for 2 days. Your symptoms get worse. You have a fever of 101.5? F (38.6? C) or higher. You have new vomiting. You have new pain in your side, back, or belly. You have any symptoms that worry you. How can I help prevent urinary tract infection? You can help prevent UTIs if you: Drink lots of fluids every day. Don't wait to go to the bathroom when you feel the need to urinate. Empty your bladder completely when you urinate. Use good hygiene when you use the toilet. For example, wipe from front to back to keep rectal bacteria from getting into the vagina and urethra. Avoid using irritating cosmetics or chemicals in the area of the vagina and urethra (such as strong soaps, feminine hygiene sprays or douches, or scented napkins or panty liners). Practice safe sex. Always use latex or polyurethane condoms. Urinate soon after sex. Keep your genital area clean. Wear underwear that is all cotton or has a cotton crotch. Pantyhose should also have a cotton crotch. Cotton allows better air circulation than nylon. Change underwear and pantyhose every day. Published by [employer]. This content is reviewed periodically and is subject to change as new health information becomes available. The information is intended to inform and educate and is not a replacement for medical evaluation, advice, diagnosis or treatment by a healthcare professional. Developed by Edith Felix RN, PA, and [employer]. ? 2009 [employer] and/or its affiliates. All Rights Reserved. Copyright ?? [employer] 2011 documented in this encounter Progress Notes Selma Good NP - 02/07/2013 3:56 PM CDT Images from the original note were not included. SUBJECTIVE: Megan Choi is a 47 year old female who presents to clinic today for the following health issues: URINARY TRACT SYMPTOMS ?? Duration: 2-3 days ?? Description dysuria, frequency, urgency, odor, hesitancy and retention ?? Intensity: moderate, severe ?? Accompanying signs and symptoms: Fever/chills: no Flank pain no Nausea and vomiting: no Vaginal symptoms: burning Abdominal/Pelvic Pain: no ?? History History of frequent UTI's: YES History of kidney stones: no Sexually Active: no Possibility of : No ?? Precipitating or alleviating factors: None ?? Therapies tried and outcome: OTC test came out positive Problem list and histories reviewed & adjusted, as indicated. Additional history: as documented Hypertension Follow-up ?? Outpatient blood pressures are being checked at store. Results are 113/74 and 110/70. ?? Low Salt Diet: no added salt ?? Amount of exercise or daily activities, outside of work: 3-5 day(s) per week ?? Problems taking medications regularly No ?? Medication side effects: none ?? Diet: regular (no restrictions) She decreased lisinopril dose 2 mo ago and since that time, no symptoms of concern and today's BP iswell controlled. Hypertension ROS: taking medications as instructed,no medication side effects noted,no TIA's,no chest pain on exertion,no dyspnea on exertion,no swelling of ankles. Hx of fibro and depression. We increased cymbalta 2 mo ago and she denies improvement of symptoms. She notes increase life stressors as well including job change, daughters getting laid off. History Substance Use Topics ??? Smoking status: Never Smoker ??? Smokeless tobacco: Never Used ??? Alcohol Use: Yes Rare Patient Active Problem List Diagnosis ??? Migraine [...] adnl level 2001 C5-C7 fused ??? section History Substance Use Topics ??? Smoking status: Never Smoker ??? Smokeless tobacco: Never Used ??? Alcohol Use: Yes Rare Family History Problem Relation Age of [...] negative, except as otherwise noted. OBJECTIVE: BP 110/60 Pulse 66 Temp 98 ??F (36.7 ??C) (Oral) Ht 5' 2 (1.575 m) Wt 156 lb (70.761 kg) BMI 28.53 kg/m2 ? No Body mass index is 28.53 kg/(m^2). GENERAL APPEARANCE: healthy, alert and no distress RESP: lungs clear to auscultation - no rales, rhonchi or wheezes CV: regular rates and rhythm, normal S1 S2, no S3 or S4 and no murmur, click or rub PSYCH: mentation appears normal and affect normal/bright ASSESSMENT/PLAN: 599.0 UTI (lower urinary tract infection) (primary encounter diagnosis) Comment: Encouraged patient return to clinic if symptoms not alleviating or worsen in nature. Plan: Urine culture, sulfamethoxazole-trimethoprim (BACTRIM DS) 800-160 MG per tablet 788.1 Dysuria Comment: Plan: *UA reflex to Microscopic and Culture 110.1 Nail fungus Comment: Plan: 401.9 Hypertension goal BP (blood pressure) < 130/80 Comment: Plan: lisinopril (PRINIVIL,ZESTRIL) 5 MG tablet 729.1 Fibromyalgia Comment: Plan: DULoxetine (CYMBALTA) 30 MG capsule Patient Instructions Urinary Tract Infection What is a urinary tract infection? A urinary tract infection (UTI) is an infection in the urinary tract. The urinary tract includes the: kidneys ureters (the tubes draining urine from the kidneys to the bladder) bladder urethra (the tube that drains urine from the bladder). Any or all of these parts of the urinary tract can get infected. How does it occur? Urinary tract infection is usually caused by bacteria. Normally the urinary tract does not have any bacteria or other organisms in it. Bacteria that cause UTI often spread from the rectum or vagina to the urethra and then to the bladder or kidneys. Urinary tract infection is more common in women than men because the urethra is shorter in women. This makes it easier for bacteria to move up to the bladder. Sometimes bacteria spread from another part of the body through the bloodstream to the urinary tract. Some of the things that can lead to an infection are: a blockage in the urinary tract, such as a kidney stone sexual activity getting older, when it may get harder to empty and flush out the bladder completely. Women are more likely to have an infection if they: are newly sexually active or have a new sex partner are past menopause are have a history of diabetes, a problem with the immune system, sickle-cell anemia, stroke, kidney stones, or any illness that makes it hard to empty the bladder completely. What are the symptoms? The symptoms of UTI may include: urinating more often feeling an urgent need to urinate pain or discomfort (burning) when you urinate urine that smells bad pain in the lower pelvis, stomach, lower back, or side urine that looks cloudy or reddish fever or chills sweats nausea and vomiting leaking of urine change in amount of urine, either more or less pain during sex. How is it diagnosed? Your healthcare provider will ask about your symptoms and medical history. Your provider will examine you. The exam may include a pelvic exam. Your provider will check for tenderness of the bladder or kidney. A sample of your urine may be tested for bacteria and pus. If you are having fever and are feeling very ill, you may have a blood test to look for signs of more serious infection. If you keep having infections or symptoms after treatment, your provider may suggest these tests: An intravenous pyelogram (IVP). An IVP is a special type of X-ray of the kidneys, ureters, and bladder. An ultrasound scan to look at the urinary tract. A cystoscopy. This is an exam of the inside of the urethra and bladder with a small lighted instrument. It is usually done by a specialist called a urologist. How is it treated? UTIs are usually treated with antibiotics. Your provider can also prescribe a medicine called Pyridium to relieve burning and discomfort. (Pyridium turns your urine a dark orange color.) If the infection is causing fever, pain, or vomiting or you have a severe kidney infection, you may need to stay at the hospital for treatment. How long will the effects last? With antibiotic treatment, the symptoms of a bacterial infection stop in 1 to 3 days. Take all of the antibiotic your healthcare provider prescribes, even after the symptoms go away. If you stop takingyour medicine before the scheduled end of treatment, the infection may come back Without treatment, the infection can last a long time. If it is not treated, the infection can permanently damage the bladder and kidneys, or it may spread to the blood. If the infection spreads to theblood, it can be fatal. How can I take care of myself? Follow your healthcare provider's treatment. Take all of the antibiotic that your healthcare provider prescribes, even when you feel better. Do not take medicine left over from previous prescriptions. Drink more fluids, especially water, to help flush bacteria from your system. If you have a fever: Take aspirin or acetaminophen to control the fever. Check with your healthcare provider before you give any medicine that contains aspirin or salicylates to a child or teen. This includes medicines like baby aspirin, some cold medicines, and Pepto Bismol. Children and teens who take aspirin are at risk for a serious illness called Medina's syndrome. Keep a daily record of your temperature. A hot water bottle or an electric heating pad on a low setting can help relieve cramps or lower abdominal or back pain. Keep a cloth between your skin and the hot water bottle or heating pad so that you don't burn your skin. Soaking in a tub for 20 to 30 minutes may help relieve any back or abdominal pain. Follow your healthcare provider's directions for a follow-up urine test. Your provider may want to test your urine soon after you finish taking the antibiotic. Call your healthcare provider right away if: You keep having symptoms after taking an antibiotic for 2 days. Your symptoms get worse. You have a fever of 101.5? F (38.6? C) or higher. You have new vomiting. You have new pain in your side, back, or belly. You have any symptoms that worry you. How can I help prevent urinary tract infection? You can help prevent UTIs if you: Drink lots of fluids every day. Don't wait to go to the bathroom when you feel the need to urinate. Empty your bladder completely when you urinate. Use good hygiene when you use the toilet. For example, wipe from front to back to keep rectal bacteria from getting into the vagina and urethra. Avoid using irritating cosmetics or chemicals in the area of the vagina and urethra (such as strong soaps, feminine hygiene sprays or douches, or scented napkins or panty liners). Practice safe sex. Always use latex or polyurethane condoms. Urinate soon after sex. Keep your genital area clean. Wear underwear that is all cotton or has a cotton crotch. Pantyhose should also have a cotton crotch. Cotton allows better air circulation than nylon. Change underwear and pantyhose every day. Published by [employer]. This content is reviewed periodically and is subject to change as new health information becomes available. The information is intended to inform and educate and is not a replacement for medical evaluation, advice, diagnosis or treatment by a healthcare professional. Developed by Edith Felix RN, DAVID, and [employer]. ? 2009 [employer] and/or its affiliates. All Rights Reserved. Copyright ?? [employer] Systems 2010 Selma Good NP, PACKAGE DYEING MACHINE OPERATOR [facility] .soapo documented in this encounter Nursing Notes 02/07/2013 4:00 PM CDT >> NEERAJ RIVERA SunFeb 07, 2013 4:23 PM Patient presents with: UTI Recheck Medication Initial BP 110/60 Pulse 66 Temp 98 ??F (36.7 ??C) (Oral) Ht 5' 2 (1.575 m) Wt 156 lb (70.761 kg) BMI 28.53 kg/m2 ? No Estimated Body mass index is 28.53 kg/(m^2) as calculatedfrom the following: Height as of this encounter: 5' 2(1.575 m). Weight as of this encounter: 156 lb(70.761 kg). BP completed using cuff size: regular Beba Rivera MA documented in this encounter Plan of Treatment Not on filedocumented as of this encounter Procedures Procedure Name Priority Date/Time Associated Comments Diagnosis URINE CULTURE Routine 02/07/2013 4:40 PM UTI (lower urinary Re sults for this CDT tract infection) procedure a re in the results section. URINE MICROSCOPIC Routine 02/07/2013 3:52 PM Resu lts for this CDT procedure are i n the results section. UA MACROSCOPIC WITH Routine 02/07/2013 3:52 PM Dysuria Re sults for this REFLEX TO MICROSCOPIC CDT proced ure are in AND CULTURE the results section. documented in this encounter Results Urine culture (02/07/2013 4:40 PM CDT) Component Value Ref Test Analysis Performed At [email or web address] Range Method Time Signature Specimen Urine [facility] LAB Culture Micro 10,000 to 50,000 colonies/mL Mixed gram negative and positive jaylen [facility] Multiple species present, probable perineal contamination. MICROBIOLOGY Susceptibility testing not routinely done Micro Report FINAL 02/09/2013 [facility] Status MICROBIOLOGY Specimen Anatomical Collection Method Collection Time Receive d Time (Source) Location / / Volume Laterality Urine specimen 02/07/2013 4:40 PM 013 4:45 (specimen) CDT PM CDT Selma Good APRN PLASTER MACHINE TENDER LAB - MICRO GENERAL ORD ERABLES Performing Organization Address City/State/ZIP Code Phon e Number [address] [phone] [facility] [address] [place] [address] [facility] MICROBIOLOGY (ABNORMAL) Urine Microscopic (02/07/2013 3:52 PM CDT) [facility] Method Time Signature WBC Urine 5-10 (A) 0 - 2 [place] [facility] RBC Urine 2-5 (A) 0 - 2 [place] [facility] Squamous Few FEW /LPF [place] Epithelial /LPF [facility] Urine LAB Bacteria Urine Few (A) NEG /HPF [facility] Mucous Urine Present (A) NEG /LPF [facility] Specimen Anatomical Collection Method Collection Time Receive d Time (Source) Location / / Volume Laterality 02/07/2013 3:52 PM 3 3:57 CDT PM CDT Selma Good APRN, CNP LAB - URINE ORDERABLES Performing Organization Address [facility]/ZIP [facility] Phon e Number [facility] [address] [place] [address] [facility] [address] [place] [address] (ABNORMAL) *UA reflex to Microscopic and Culture (02/07/2013 3:52 PM CDT) [facility] Method Time Signature Color Urine Yellow [facility] Appearance Urine Clear [facility] Glucose Urine Negative NEG mg/dL [facility] Bilirubin Urine Negative NEG [facility] Ketones Urine Negative NEG mg/dL [facility] Specific [place] 1.010 1.003 - [place] Urine 1.035 [facility] Blood Urine Moderate (A) NEG [facility] pH Urine 7.0 5.0 - 7.0 [place] pH [facility] Protein Albumin Negative NEG mg/dL [place] Urine [facility] Urobilinogen 0.2 0.2 - 1.0 [place] Urine EU/dL [facility] Nitrite Urine Negative NEG [facility] Leukocyte Trace (A) NEG [place] Esterase Urine [facility] Source Midstream [place] Urine [facility] Specimen Anatomical Collection Method Collection Time Receive d Time (Source) Location / / Volume Laterality Urine specimen 02/07/2013 3:52 PM 013 3:57 (specimen) CDT PM CDT Selma Good APRN, CNP LAB - URINE ORDERABLES Performing Organization Address City/State/ZIP Code Phon e Number [facility] [address] [facility] DAV[place]ring[place] [phone] [facility] [address] [facility] [place] [phone] documented in this encounter Visit Diagnoses Diagnosis UTI (lower urinary tract infection) - Pr imary Urinary tract infection, site not specif ied Dysuria Nail fungus Dermatophytosis of nail Hypertension goal BP (blood pressure) < 130/80 Unspecified essential hypertension Fibromyalgia Mylagia and myositis, unspecified documented in this encounter Care Teams Line Fixer Relationship Specialty Start Date End Date Selma Good, HEEL SEAT FILLER PLASTER MACHINE TENDER PCP - General 04/09/08 04/07/15 [address] [facility] [place] [id number] documented as of this encounter
--- OUTSIDE RECORDS SUMMARY | 2022-01-17 22:16 | XMS_ITS | Encounter Summary ---
:1965 Author Organization [facility] Address [address] [place] [address] Care Team Providers Name Role Phone Selma Angelo APRN [facility] Primary Care Provider [phone] Reason for Referral Referral not Required - Closed Specialty Diagnoses / Procedures Referred By Contact Refer red To Contact Diagnoses Upper back pain Selma Angelo, [facility] QUALITAT[facility] EXECUTIVE RESEARCHER [facility] MED [address] [place] [address] ADMIN OFFICE DAVID PRINGLE [address] DAVID MUNIZ [address] Phone: [phone] Referral ID Status Reason Start Date Expiration Date Visits Requ ested Visits Authorized [id number] Closed 05/05/2011 11/01/2011 1 1 TOR USE ASSISTANT Reason for Visit Reason Comments Physical Needs refill on medications but has enough until mid May Previsit Encounter Details Date Type Department Care Team Description 05/05/2011 Office Visit [facility] Lilo Angelo gen eral medical examination at a health care facility (Primary Dx); Pino Angeles APRN Hypertension goal BP (blood pressure) < 130/80; 1440 [facility] Type 2 diabetes, HbA1C goal < 7% (H); DAVID Pringle [phone] [facility]5 [facility] Hyperlipidemia LDL goal <100 ; [phone] [facility] Migraine headache; DAVID PRINGLE [address] GERD (gastroesophageal reflux disease); [phone] Vaginal atrophy ; (Work) Cervical pain; [phone] Upper back pain ; (Fax) Seasonal allerg ic rhinitis; Breast cancer s creening Social History Tobacco Use Types Packs/Day Years [...] How often do you attend judaism or restoration Patient refused 08/08/2019 services? Do [...] Sign Reading Time Taken Comments Blood Pressure 98/56 05/05/2011 8:38 AM VISITOR USE ASSISTANT Pulse 72 05/05/2011 8:38 AM VISITOR USE ASSISTANT Temperature - - Respiratory Rate - - Oxygen Saturation - - Inhaled Oxygen Concentration - - Weight 73.5 kg (162 lb) 05/05/2011 8:38 AM VISITOR USE ASSISTANT Height - - Body Mass Index 29.63 08/26/2010 2:29 PM CDT documented in this encounter Patient Instructions Patient InstructionsDanilo-Selma Mccoy NP - 05/05/2011 7:57 AM VISITOR USE ASSISTANT Return to clinic in 6 months (november) for follow up diabetes and A1C test. Try Zyrtec-D daily to help with dizziness symptoms. Let me know if this doesn't help. Try the vaginal estrogen cream to help with itching. Mychart me in about 1 month with how things aregoing. PREVENTIVE HEALTH RECOMMENDATIONS: Get a Pap test each year. If you have 3 normal tests in a row, you may have the test every 2 to 3 years. You do not need a Pap test if you've had a hysterectomy (removal of uterus) and have not had cancer. You should be tested each year for STDs (sexually transmitted diseases), if you're at risk. Ask your doctor if you should have a mammogram. Have a colonoscopy (test for colon cancer) if someone in your family has had colon cancer or polyps before age 50. Have a cholesterol test every 5 years. Have a diabetes test (fasting glucose) after age 45. If you are at risk for diabetes, you should have this test every 3 years. Vaccines: Get a flu shot each year. Get a tetanus shot every 10 years. Eat at least 5 servings of fruits and vegetables daily. Eat whole-grain bread, whole-wheat pasta and brown rice instead of white grains and rice. For bone health: Eat calcium-rich foods or take calcium pills (500 to 600 mg) twice a day with food.Also take vitamin D (1000 IUs) each day. Exercise for at least 150 minutes a week (an average of 30 minutes a day, 5 days of the week). This will help you control your weight and prevent disease. Limit alcohol to one drink per day. No smoking. Wear sunscreen to prevent skin cancer. See your dentist twice a year for an exam and cleaning. TOR USE ASSISTANT documented in this encounter Progress Notes Selma Angelo NP - 05/05/2011 7:57 AM CST CC: Megan Choi is an 46 year old woman who presents for preventive health visit. Besides routine health maintenance, she would like to discuss follow up on diabetic blood work done on 04/29/2011. Vaginal discharge and itching, happens every month before menstral cycle starts. Migraine headache [346.90D]: has been weaning off topomax without increased frequency of migraine HAs. She has significant decrease of stressors. Vaginal itching x months. She does have a very irregular menses. When she is sexually active, there is burning and itching. No lower abd pain. Neck pain: She did go to [facility], which is controlled with gabapentin without relief of pain. She would like to come off this. The pain is stable and he would opt to not do any intervention at this ttime. L hip/back pain: Stable, but moderate. She does have a hx of SI joint fusion surgery, but [facility] said it looks as if it healed well. She has never tried PT for this. GERD (gastroesophageal reflux disease) [530.81K]: takes medications, overall doing well Seasonal allergic rhinitis [477.9A]: specifically, dizziness symptoms with position changes. Has lost significant wt, daughter getting Healthy Habits: Do you get at least three servings of calcium containing foods daily (dairy, green leafy vegetables,etc.)? NO Outside of work or daily activities, how many days per week do you exercise for 30 minutes or longer? 0 Dietary Guidelines for Americans, 2010 USDA's MyPlate Estimated Body mass index is 29.63 kg/(m^2) as calculated from the following: Height as of 08/26/10: 5' 2(1.575 m). Weight as of this encounter: 162 lb(73.483 kg). Have you had an eye exam in the past two years? yes Do you see a dentist twice per year? no Staff Signature Tierra Garcia CMA Abuse: Current or Past(Physical, Sexual or Emotional)- NO Do you feel safe in your environment - YES History Substance Use Topics ??? Smoking status: Never Smoker ??? Smokeless tobacco: Never Used ??? Alcohol Use: Yes Rare The patient does not drink >3 drinks per day nor >7 drinks per week. Reviewed orders with patient. Reviewed health maintenance and updated orders accordingly - Yes Staff Signature Tierra Garcia CMA History of abnormal Pap smear: Low risk for cervical cancer. Has had three normal paps over five years. Screen patient every 3 years - updated in Health Maintenance. All Histories reviewed and updated in [facility]. ROS: C: NEGATIVE for fever, chills, change [...] unusual urinary or vaginal symptoms. Periods are regular. M: NEGATIVE for significant arthralgias or myalgia N: NEGATIVE for weakness, dizziness or paresthesias P: NEGATIVE for changes in mood or affect OBJECTIVE: BP 98/56 Pulse 72 Wt 162 lb (73.483 kg) LMP 04/09/2011 GENERAL APPEARANCE: healthy, alert and no distress EYES: Eyes grossly normal to inspection, PERRL and conjunctivae and sclerae normal HENT: ear canals and TM's normal with air/fluid interface, nose and mouth without ulcers or lesions,oropharynx clear and oral mucous membranes moist NECK: [...] PSYCH: mentation appears normal and affect normal/bright ATP III Guidelines FRAX Risk Assessment ICSI Preventive Guidelines ASSESSMENT/PLAN: V70.0 Routine general medical examination at a health care facility (primary encounter diagnosis) Comment: Plan: PAP IMAGED THIN LAYER SCREEN 401.9BT Hypertension goal BP (blood pressure) < 130/80 Comment: well controlled Plan: lisinopril (PRINIVIL,ZESTRIL) 20 MG tablet 250.00FV Type 2 diabetes, HbA1C goal < 7% Comment: will return to clinic in 6 mo for a1c. Doing well with wt loss Plan: metformin (GLUCOPHAGE) 1000 MG tablet 272.4CL Hyperlipidemia LDL goal <100 Comment: Plan: simvastatin (ZOCOR) 20 MG tablet 346.90D Migraine headache Comment: Plan: 530.81K GERD (gastroesophageal reflux disease) Comment: Plan: omeprazole (PRILOSEC) 20 MG capsule 627.3V Vaginal atrophy Comment: see avs Plan: Wet prep, estradiol (ESTRACE VAGINAL) 0.1 MG/GM vaginal cream 723.1L Cervical pain Comment: Plan: 724.1N Upper back pain Comment: Plan: LINUS PT, HAND, AND CHIROPRACTIC REFERRAL 477.9A Seasonal allergic rhinitis Comment: likely causing dizzy symptoms. See avs Plan: V76.10C Breast cancer screening Comment: Plan: Mammo Screening digital (bilat) COUNSELING: regular exercise weight management healthy diet/nutrition self breast exam (trell)menopause management reports that she has never smoked. She has never used smokeless tobacco. There is no height on file to calculate BMI. Patient Instructions Return to clinic in 6 months (november) for follow up diabetes and A1C test. Try Zyrtec-D daily to help with dizziness symptoms. Let me know if this doesn't help. Try the vaginal estrogen cream to help with itching. Mychart me in about 1 month with how things aregoing. PREVENTIVE HEALTH RECOMMENDATIONS: Get a Pap test each year. If you have 3 normal tests in a row, you may have the test every 2 to 3 years. You do not need a Pap test if you've had a hysterectomy (removal of uterus) and have not had cancer. You should be tested each year for STDs (sexually transmitted diseases), if you're at risk. Ask your doctor if you should have a mammogram. Have a colonoscopy (test for colon cancer) if someone in your family has had colon cancer or polyps before age 50. Have a cholesterol test every 5 years. Have a diabetes test (fasting glucose) after age 45. If you are at risk for diabetes, you should have this test every 3 years. Vaccines: Get a flu shot each year. Get a tetanus shot every 10 years. Eat at least 5 servings of fruits and vegetables daily. Eat whole-grain bread, whole-wheat pasta and brown rice instead of white grains and rice. For bone health: Eat calcium-rich foods or take calcium pills (500 to 600 mg) twice a day with food.Also take vitamin D (1000 IUs) each day. Exercise for at least 150 minutes a week (an average of 30 minutes a day, 5 days of the week). This will help you control your weight and prevent disease. Limit alcohol to one drink per day. No smoking. Wear sunscreen to prevent skin cancer. See your dentist twice a year for an exam and cleaning. TOR USE ASSISTANT documented in this encounter Plan of Treatment Scheduled Referrals Name Type Priority Associated Diagnoses Order S katya BARRIGA PT, HAND, AND Referral Routine Upper back pain Ordered : 05/05/2011 CHIROPRACTIC REFERRAL documented as of this encounter Procedures Procedure Name Priority Date/Time Associated Diagnosis Comme nts PAP IMAGED THIN Routine 05/05/2011 8:39 AM Routine general Res ults for this LAYER SCREEN VISITOR USE ASSISTANT medical examination procedur e are in at a health care the results facility section. WET PREPARATION Routine 05/05/2011 8:39 AM Vaginal atrophy Res ults for this VISITOR USE ASSISTANT procedure are i n the results section. documented in this encounter Results Wet prep (05/05/2011 8:39 AM VISITOR USE ASSISTANT) [facility] Method Time Signature Specimen Vagina [place] Description [facility] Wet Prep No yeast seen [place] No clue cells seen [facility] No Trichomonas seen LAB Micro Report FINAL [place] Status 05/05/2011 [facility] Specimen Anatomical Collection Method Collection Time Receive d Time (Source) Location / / Volume Laterality 05/05/2011 8:39 AM 1 8:42 VISITOR USE ASSISTANT AM VISITOR USE ASSISTANT Selma Angelo QUALITATIVE EXECUTIVE RESEARCHER LABEL MACHINE OPERATOR LAB - MICRO GENERAL ORD ERABLES Performing Organization Address City/State/ZIP Code Phon e Number [facility] [address] [place] [id number] [facility] PAP IMAGED THIN LAYER SCREEN (05/05/2011 8:39 AM VISITOR USE ASSISTANT) Component Value Ref Test Analysis Performed At [facility] Range Method Time Signature PAP NIL COPATH Copath Report COPATH Patient Name: MEGAN CHOI MR#: [id number] Specimen #: [id number] Collected: 05/05/2011 Received: 05/08/2011 Reported: 05/09/2011 14:02 Ordering Phy(s): SELMA ANGELO SPECIMEN/STAIN PROCESS: Pap imaged thin layer prep screening (Surepath, FocalPoint w ith guided screening) ? Pap-Cyto x 1, Reflex HPV x 1 SOURCE: Cervical, endocervical ---- Pap imaged thin layer prep screening (Surepath, FocalPoint with guided screening) SPECIMEN ADEQUACY: Satisfactory for evaluation. -Transformation zone component absent. CYTOLOGIC INTERPRETATION: Negative for Intraepithelial Lesion or Malignancy Electronically signed out by: TARIQ Mohamud(ASCP) Processed and screened at [facility] CLINICAL HISTORY: LMP: 04/09/2011 Previous Other-NIL EM>40 Date of Last Pap: 04/13/2008, Papanicolaou Test Limitations: ??Cervical cytology is a scre ening test with limited sensitivity; regular screening is critical for cancer prevention; Pap tests are primarily effective for the diagnosis/prevention of squamous cell carcinoma, not adenoca rcinomas or other cancers. TESTING LAB LOCATION: [facility] [address] [place], [place] ??[id number] COLLECTION SITE: Client: ??[facility] Location: EAFP (R) Specimen (Source) Anatomical Collection Method Collection Time Re ceived Time Location / / Volume Laterality Cytologic 05/05/2011 8:39 05/08/2011 material AM VISITOR USE ASSISTANT 10:11 AM VISITOR USE ASSISTANT (specimen) Selma Angelo APRN, CNP LAB - [facility] Performing Organization Address City/State/ZIP Code Phon e Number [place] documented in this encounter Visit Diagnoses Diagnosis Routine general medical examination at a health care facility - Primary Hypertension goal BP (blood pressure) < 130/80 Unspecified essential hypertension Type 2 diabetes, HbA1c goal < 7% (H) Type II or unspecified type diabetes sukhdev litus without mention of complication, not stated as uncontrolled Hyperlipidemia LDL goal <100 Other and unspecified hyperlipidemia Migraine headache Migraine, unspecified, without mention o f intractable migraine without mention of status migrainosus GERD (gastroesophageal reflux disease) Esophageal reflux Vaginal atrophy Postmenopausal atrophic vaginitis Cervical pain Cervicalgia Upper back pain Pain in thoracic spine Seasonal allergic rhinitis Allergic rhinitis, cause unspecified documented in this encounter Care Teams Recording Studio Internship Relationship Specialty Start Date End Date Selma Angelo APRN CNP PCP - General 04/09/08 04/07/15 [address] [facility] DAVID GRESHAM [id number] documented as of this encounter
--- OUTSIDE RECORDS SUMMARY | 2022-01-17 22:16 | XMS_ITS | Encounter Summary ---
:1965 Author Organization [facility] Address [address] [place] [address] Care Team Providers Name Role Phone Selma Good APRN BLEMISH REMOVER Primary Care Provider Encounter Details Date Type Department Care Team Description 12/06/[address] [facility] Eag an Type 2 diabetes, HbA1C [address] goal < 7% (H) (Primary Dx) DAV[place] Pringle [id number] Social History Tobacco Use [...] How often do you attend synagogue or zoroastrianism Patient refused 08/08/2019 services? Do you belong to any clubs or organizations such as No 08/08/2019 synagogue groups, unions, fraternal or athletic groups, or [...] encounter Miscellaneous Notes Addendum Note - Pankaj Lei - 12/06/2012 9:14 AM CDT Addended by: PANKAJ LEI on: 12/06/2012 09:14 AM Modules accepted: Orders documented in this encounter Plan of Treatment Not on filedocumented as of this encounter Procedures Procedure Name Priority Date/Time Associated Comments Diagnosis TSH WITH FREE T4 Routine 12/06/2012 9:14 AM Type 2 diabetes, R esults for this REFLEX CDT HbA1C goal < 7% (H) procedur e are in the results section. LIPID REFLEX TO DIRECT Routine 12/06/2012 9:14 AM Type 2 diabe shirley, Results for this LDL PANEL CDT HbA1C goal < 7% (H) procedur e are in the results section. COMPREHENSIVE Routine 12/06/2012 9:14 AM Type 2 diabetes, Resu lts for this METABOLIC PANEL CDT HbA1C goal < 7% (H) proce dure are in the results section. HEMOGLOBIN A1C Routine 12/06/2012 8:53 AM Type 2 diabetes, Res ults for this CDT HbA1C goal < 7% (H) procedur e are in the results section. documented in this encounter Results TSH with free T4 reflex (12/06/2012 9:14 AM CDT) athologist Signature TSH 2.01 0.4 - 5.0 [facility]L [facility] LAB Specimen Anatomical Collection Method Collection Time Receive d Time (Source) Location / / Volume Laterality Blood specimen 12/06/2012 9:14 AM 013 9:15 (specimen) CDT AM CDT Selma Good APRN BLEMISH REMOVER LAB - BLOOD ORDERABLES Performing Organization Address City/State/ZIP Code Phon e Number [facility] [address] [place] [address] [facility] [address] [place] [phone] (ABNORMAL) Lipid Profile with reflex to direct LDL (12/06/2012 9:14 AM CDT) athologist Signature Cholesterol 128 0 - 200 [place] mg/dL [facility] Comment: LDL Cholesterol is the primary guide to therapy. The NCEP recommends further evaluation of: patients with cholesterol greater than 200 mg/dL if additional risk facto rs are present, cholesterol greater than 240 mg/dL, triglycerides greater than 1 50 mg/dL, or HDL less than 40 mg/dL. Triglycerides 39 0 - 150 mg/dL [facility] Comment: Fasting specimen HDL Cholesterol 43 (L) 50 - 110 mg/dL [facility] LDL Cholesterol Calculated 77 0 - 129 mg/dL [facility] Comment: LDL Cholesterol is the primary guide to therapy: LDL-cholesterol goal in high risk patients is <100 mg/dL and in very high risk patients is <70 mg/dL. VLDL-Cholesterol 8 0 - 30 mg/dL [facility] Cholesterol/HDL Ratio 3.0 0.0 - 5.[address] [facility] Specimen Anatomical Collection Method Collection Time Receive d Time (Source) Location / / Volume Laterality Blood specimen 12/06/2012 9:14 AM 013 9:15 (specimen) CDT AM CDT Selma Good APRN BLEMISH REMOVER LAB - BLOOD ORDERABLES Performing Organization Address City/State/ZIP Code Phon e Number [facility] [address] [place] [address] [facility] [address] [place] [address] (ABNORMAL) Comprehensive metabolic panel (BMP + Alb, Alk Phos, ALT, AST, Total. Bili, TP) (12/06/2012 9:14 AM CDT) athologist Signature Sodium 143 133 - 144 [place] mmol/L [facility] Potassium 4.5 3.4 - 5.3 [place] mmol/L [facility] Chloride 108 94 - 109 [place] mmol/L [facility] Carbon Dioxide 24 20 - 32 [place] mmol/L [facility] Anion Gap 12 6 - 17 [place] mmol/L [facility] Glucose 103 (H) 60 - 99 [place] mg/dL [facility] Comment: Fasting specimen Urea Nitrogen 14 5 - 24 mg/dL [facility] Creatinine 0.59 0.52 - 1.04 mg/dL [facility] GFR Estimate >90 >60 mL/min/1.7m2 [facility] GFR Estimate If Black >90 >60 mL/min/1.7m2 [facility] Calcium 8.6 8.5 - 10.4 mg/dL [facility] Bilirubin Total 0.2 0.2 - 1.3 mg/dL [facility] Albumin 3.7 (L) 3.9 - 5.1 g/dL [facility] Protein Total 6.9 6.8 - 8.8 g/dL [facility] Alkaline Phosphatase 76 40 - 150 U/L [facility] ALT 20 0 - 50 U/L [facility] AST 17 0 - 45 U/L [facility] Specimen Anatomical Collection Method Collection Time Receive d Time (Source) Location / / Volume Laterality Blood specimen 12/06/2012 9:14 AM 06/28/2 013 9:15 (specimen) CDT AM CDT Selma Good APRN, CNP LAB - BLOOD ORDERABLES Performing Organization Address City/[facility] [address]/[facility] Phon e Number [facility] [address] [place] [address] [facility] [address] [place] [address] Hemoglobin A1c (12/06/2012 8:53 AM CDT) P athologist Signature Hemoglobin A1C 5.8 4.3 - 6.0 [facility] Specimen Anatomical Collection Method Collection Time Receive d Time (Source) Location / / Volume Laterality Blood specimen 12/06/2012 8:53 AM 013 8:54 (specimen) CDT AM CDT Selma Good APRN, CNP LAB - BLOOD ORDERABLES Performing Organization Address [facility] [address]/[facility] Code Phon e Number [facility] [address] [place] [address] [phone] [facility] [address] [place] [address] documented in this encounter Visit Diagnoses Diagnosis Type 2 diabetes, HbA1c goal < 7% (H) - P rimary Type II or unspecified type diabetes sukhdev litus without mention of complication, not stated as uncontrolled documented in this encounter Care Teams Service Crew Supervisor Relationship Specialty Start Date End Date Selma Good APRN CNP PCP - General 04/09/08 04/07/15 [facility] DAVID GRESHAM [id number] documented as of this encounter
--- OUTSIDE RECORDS SUMMARY | 2022-01-17 22:16 | XMS_ITS | Encounter Summary ---
:1965 Author Organization [place] Address [address] [place] [address] Care Team Providers Name Role Phone Selma Good APRN STEREO EQUIPMENT SALESPERSON Primary Care Provider [phone] Reason for Visit Reason Comments Ultrasound Encounter Details Date Type Department Care Team Description 10/27/2011 Orders Only [facility] norrhagia (Primary Dx) Clinic [place] [address] [place] [address] Social History Tobacco Use Types Packs/Day Years [...] How often do you attend mormon or scientologist Patient refused 08/08/2019 services? Do [...] Date/Time Associated Diagnosis Comme nts US PELVIC TRANSABDOMINAL Routine 10/27/2011 Menorrhagia Res ults for this AND TRANSVAGINAL procedure a re in the results section. documented in this encounter Results US Pel W/Trans* (10/27/2011) Anatomical Region Laterality Modality Abdomen/Pelvis Other Impressions 10/27/2011 Complete pelvic ultrasound utilizing both abdominal and vaginal transducers. ??Normal study. Christy Ibarra M.D. Narrative 10/27/2011 [facility] Obstetrics & Gynecology [address] [facility]. [address] [place] [address] ULTRASOUND - PELVIC PURCHASING/RECEIVING Referring MD: Diego Nelson MD Primary Clinic: [facility] Ultrasound disk#: [id number] CLINICAL INFORMATION Indications for ultrasound: Bleeding/Menses - Menorrhagia (heavy men ses) LMP: 28 Sep 2011 ?Hormones: none Measurements: Uterus: 9.7 x 4.8 x 5.1 cm. ?? Position is anteverted. ??Contour is smt h/reg. Endo cav: 12.3 mm ?Smooth/regular /wnl Cervix: Wnl Right ovary: Nv Left ovary: 2.7 x 2.4 x 2.2 cm. ??Wnl Cul de sac: no free fluid Diego Nelson MD IMG US ORDERABLES documented in this encounter Visit Diagnoses Diagnosis Menorrhagia - Primary Excessive or frequent menstruation documented in this encounter Care Teams Rural Electrification Engineer Relationship Specialty Start Date End Date Selma Good APRN STEREO EQUIPMENT SALESPERSON PCP - General 04/09/08 04/07/15 [address] [facility] DAVID GRESHAM [id number] documented as of this encounter
--- OUTSIDE RECORDS SUMMARY | 2022-01-17 22:16 | XMS_ITS | Encounter Summary ---
:1965 Author Organization [facility] Address [address] [place] [address] Care Team Providers Name Role Phone Selma Good APRN HORSE RACE TIMER Primary Care Provider [phone] Reason for Visit Reason Comments UTI Or yeast symptoms Encounter Details Date Type Department Care Team Description 07/27/2011 Office Visit [facility] Vanda Guerrero Vaginal infection; Pino Toribio MD UTI (urinary tract infection); [address] [place] [address] Vaginal itching [place] [phone] [facility] [address] [phone] DAVID PRINGLE [phone] (Wo rk) Social History Tobacco Use Types [...] How often do you attend jewish or buddhism Patient refused 08/08/2019 services? Do [...] Sign Reading Time Taken Comments Blood Pressure 110/65 07/27/2011 9:40 AM DIRECTOR FACILITIES MAINTENANCE Pulse 68 07/27/2011 9:40 AM DIRECTOR FACILITIES MAINTENANCE Temperature - - Respiratory Rate - - Oxygen Saturation - - Inhaled Oxygen Concentration - - Weight 72.6 kg (160 lb) 07/27/2011 9:40 AM DIRECTOR FACILITIES MAINTENANCE Height 157.5 cm (5' 2) 07/27/2011 9:40 AM DIRECTOR FACILITIES MAINTENANCE Body Mass Index 29.26 07/27/2011 9:40 AM DIRECTOR FACILITIES MAINTENANCE documented in this encounter Patient Instructions Patient InstructionsVanda Guerrero MD - 07/27/2011 10:02 AM CST Bladder infection - push fluids - start taking bactrim twice daily for the next 3 days Vaginal itching - normal wet prep today - trial of steroid cream - use twice daily - make appt to see plastic press operator again CTOR FACILITIES MAINTENANCE documented in this encounter Progress Notes Vanda Guerrero MD - 07/27/2011 9:51 AM CST SUBJECTIVE: Megan Choi is a 46 year old female who presents today for a possible UTI. Symptoms of dysuria and frequency have been going on for 2day(s). No hematuria. Gradual onset and moderate severity. There is no history of fever, chills, nausea or vomiting. No history of vaginal or penile discharge. This patient does not have a history of frequent urinary tract infections. Patient denies long duration, flank pain, temperature > 101 degrees F. and Vomiting, significant nausea or diarrhea. Vaginal symptoms with itching have been chronic - symptoms come and go. Itches more after sex. Has been in communications with PCP about this problem and previously had appt scheduled with gynecology that had to be cancelled. Notices more white discharge than she thinks is normal. Periods have become u npredictable and irregular. Past Medical History Diagnosis Date ??? DVT femoral (deep venous thrombosis) 04/17 post surgical, stopped coumadin 01/16 Current outpatient prescriptions Medication Sig ??? lisinopril (PRINIVIL,ZESTRIL) 20 MG tablet Take 1 tablet by mouth daily. ??? metformin (GLUCOPHAGE) 1000 MG tablet Take 1 tablet by mouth 2 times daily (with meals). ??? simvastatin (ZOCOR) 20 MG tablet Take 1 tablet by mouth At Bedtime. ??? omeprazole (PRILOSEC) 20 MG capsule Take 1 capsule by mouth daily. ??? topiramate (TOPAMAX) 25 MG tablet Take 1-2 tablets by mouth 2 times daily as needed. ??? ASPIRIN 81 MG OR TABS History Substance Use Topics ??? Smoking status: Never Smoker ??? Smokeless tobacco: Never Used ??? Alcohol Use: Yes Rare OBJECTIVE: BP 110/65 Pulse 68 Ht 5' 2 (1.575 m) Wt 160 lb (72.576 kg) BMI 29.26 kg/m2 Gen: well appearing, very pleasant, no acute distress GI: obese, soft abdomen, no suprapubic tenderness : external genitalia with erythematous, thickened appearing labia, no vesicles or pustules, increased amount of white vaginal discharge. No bleeding. Component Latest Ref Rng 07/27/2011 Color Urine Yellow Appearance Urine Clear Glucose Urine Low: NEG mg/dL 250 (A) Bilirubin Urine Low: NEG Negative Ketones Urine Low: NEG mg/dL Negative Specific [place] Urine 1.003 - 1.035 1.025 Blood Urine Low: NEG Trace (A) pH Urine 5.0 - 7.0 pH 5.0 Protein Albumin Urine Low: NEG mg/dL Negative Urobilinogen Urine 0.2 - 1.0 EU/dL 0.2 Nitrite Urine Low: NEG Negative Leukocyte Esterase Urine Low: NEG Negative Source Midstream Urine WBC Urine 0 - 2 /HPF 5-10 (A) RBC Urine 0 - 2 /HPF O - 2 Squamous Epithelial /LPF Urine Low: FEW /LPF Few Bacteria Urine Low: NEG /HPF Few (A) Specimen Description Urine Wet Prep No Trichomonas seen . . . Micro Report Status FINAL 07/27/2011 ASSESSMENT: 1. Vaginal infection (616.10AG) Wet prep 2. UTI (urinary tract infection) (599.0C) *UA macro reflex to micro and culture, sulfamethoxazole-trimethoprim (BACTRIM DS) 800-160 MG per tablet, Urine culture 3. Vaginal itching (698.1P) hydrocortisone 2.5 % cream Patient Instructions Bladder infection - push fluids - start taking bactrim twice daily for the next 3 days Vaginal itching - normal wet prep today - trial of steroid cream - use twice daily - make appt to see plastic press operator again Vanda Guerrero MD Internal Medicine - Pediatrics CTOR FACILITIES MAINTENANCE documented in this encounter Nursing Notes 07/27/2011 9:30 AM CST >> KEYANNA WOODWARDSALAS [facility] Jul 27, 2011 9:43 AM Patient presents with: UTI - Or yeast symptoms Initial BP 110/65 Pulse 68 Ht 5' 2 (1.575 m) Wt 160 lb (72.576 kg) BMI 29.26 kg/m2 Estimated Body mass index is 29.26 kg/(m^2) as calculated from the following: Height as of this encounter: 5' 2(1.575 m). Weight as of this encounter: 160 lb(72.576 kg).. BP completed using cuff size: regular SMA Elenita documented in this encounter Plan of Treatment Not on filedocumented as of this encounter Procedures Procedure Name Priority Date/Time Associated Comments Diagnosis URINE CULTURE Routine 07/27/2011 10:03 UTI (urinary tract Resu lts for this AM DIRECTOR FACILITIES MAINTENANCE infection) procedure are i n the results section. URINE MICROSCOPIC Routine 07/27/2011 9:37 AM Resu lts for this DIRECTOR FACILITIES MAINTENANCE procedure are i n the results section. UA MACROSCOPIC WITH Routine 07/27/2011 9:37 AM UTI (urinary tr act Results for this REFLEX TO MICROSCOPIC DIRECTOR FACILITIES MAINTENANCE infection) proced ure are in AND CULTURE the results section. WET PREPARATION Routine 07/27/2011 9:33 AM Vaginal infection R esults for this DIRECTOR FACILITIES MAINTENANCE procedure are i n the results section. documented in this encounter Results Urine culture (07/27/2011 10:03 AM DIRECTOR FACILITIES MAINTENANCE) Component Value Ref Test Analysis Performed At Patholo gist Range Method Time Signature Specimen Unspecified Urine [facility] Description MICROBIOLOGY Culture Micro <10,000 colonies/mL Gram negative rods No furthe r identification [facility] Susceptibility testing not routinely done MICROBIOLOGY Micro Report FINAL 07/28/2011 [facility] Status MICROBIOLOGY Specimen Anatomical Collection Method Collection Time Receive d Time (Source) Location / / Volume Laterality Urine specimen 07/27/2011 10:03 2 (specimen) AM DIRECTOR FACILITIES MAINTENANCE 10:06 AM DIRECTOR FACILITIES MAINTENANCE Vanda Guerrero MD LAB - MICRO GENERAL ORDERABL ES Performing Organization Address City/State/ZIP Code Phon e Number [facility] [address] [place], [place] [id number] [place] [address] [facility] MICROBIOLOGY (ABNORMAL) Urine Microscopic (07/27/2011 9:37 AM DIRECTOR FACILITIES MAINTENANCE) Analysis Performed At Patho logist Time Signature WBC Urine 5-10 (A) 0 - 2 /HPF [facility] RBC Urine O - 2 0 - 2 /HPF [facility] Squamous Few FEW /LPF [facility] Urine LAB Bacteria Urine Few (A) NEG /HPF [facility] Specimen Anatomical Collection Method Collection Time Receive d Time (Source) Location / / Volume Laterality 07/27/2011 9:37 AM 2 9:39 DIRECTOR FACILITIES MAINTENANCE AM DIRECTOR FACILITIES MAINTENANCE Vanda Guerrero MD LAB - URINE ORDERABLES Performing Organization Address [facility]/ZIP [facility] Phon e Number [address] [address] [facility] (ABNORMAL) *UA macro reflex to micro and culture (07/27/2011 9:37 AM DIRECTOR FACILITIES MAINTENANCE) [facility] Method Time Signature Color Urine Yellow [facility] Appearance Urine Clear [facility] Glucose Urine 250 (A) NEG mg/dL [facility] Bilirubin Urine Negative NEG [facility] Ketones Urine Negative NEG mg/dL [facility] Specific [place] 1.025 1.003 - [facility] Urine 1.035 [facility] Blood Urine Trace (A) NEG [facility] pH Urine 5.0 5.0 - 7.0 [place] pH [facility] Protein Albumin Negative NEG mg/dL [place] Urine [facility] Urobilinogen 0.2 0.2 - 1.0 [place] Urine EU/dL [facility] Nitrite Urine Negative NEG [facility] Leukocyte Negative NEG [facility] Esterase Urine [facility] Source Midstream [place] Urine [facility] Specimen Anatomical Collection Method Collection Time Receive d Time (Source) Location / / Volume Laterality Urine specimen 07/27/2011 9:37 AM 012 9:39 (specimen) DIRECTOR FACILITIES MAINTENANCE AM DIRECTOR FACILITIES MAINTENANCE Vanda Guerrero MD LAB - URINE ORDERABLES Performing Organization Address City/[facility]/ZIP Code Phon e Number [facility] [address] [place] [address] [facility] Wet prep (07/27/2011 9:33 AM DIRECTOR FACILITIES MAINTENANCE) [facility] Method Time Signature Specimen Urine [place] Description [facility] Wet Prep No Trichomonas seen [facility] No clue cells seen [facility] No yeast seen LAB Micro Report FINAL [facility] Status 07/27/2011 [facility] Specimen Anatomical Collection Method Collection Time Receive d Time (Source) Location / / Volume Laterality 07/27/2011 9:33 AM 2 9:35 DIRECTOR FACILITIES MAINTENANCE AM DIRECTOR FACILITIES MAINTENANCE Vanda Guerrero MD LAB - MICRO GENERAL ORDERABL ES Performing Organization Address City/State/ZIP Code Phon e Number [facility] [address] [facility] DAVID Pringle [address] [facility] documented in this encounter Visit Diagnoses Diagnosis Vaginal infection Vaginitis and vulvovaginitis, unspecifie d UTI (urinary tract infection) Urinary tract infection, site not specif ied Vaginal itching Pruritus of genital organs documented in this encounter Care Teams Rotating Field Assembler Relationship Specialty Start Date End Date Selma Good, SEAN HORSE RACE TIMER PCP - General 04/09/08 04/07/15 [address] [facility] [place] [address] documented as of this encounter
--- OUTSIDE RECORDS SUMMARY | 2022-01-17 22:17 | XMS_ITS | Encounter Summary ---
:1965 Author Organization [facility] Address [address] [place] [address] Care Team Providers Name Role Phone Selma Good APRN REFINERY OPERATOR VISBREAKING Primary Care Provider [phone] Reason for Visit [facility] Physical Therapy (Routine) - Closed Specialty Diagnoses / Procedures Referred By Contact Refer red To Contact Rayo Whitehead, MARÍA [facility] [address] [facility] [address] [place] [address] Referral ID Status Reason Start Date Expiration Date Visits Requ ested Visits Authorized HP - FOOT Closed 01/03/2010 06/10/2010 12 10 Encounter Details Date Type Department Care Team Description 01/20/2010 Therapy Visit [place] for Janice Dc, PT Other Peripheral Athletic Medicine - [address] Enthesopathies (Primary [place] [facility] [place] [address] Dx) Therapy [phone] [address] (Work) [place] [id number] Social History Tobacco Use Types Packs/Day Years Used Date Never Smoker Alcohol Use Standard Drinks/Week Comments Yes 0 [...] How often do you attend hoahaoism or jain Patient refused 08/08/2019 services? Do you belong to any clubs or organizations such as No 08/08/2019 hoahaoism groups, [employer], [employer] or athletic groups, or school groups? How [...] Procedure Name Priority Date/Time Associated Diagnosis Comme [facility] Z ELECTRIC CURRENT Routine 01/20/2010 5:14 PM Other Peripher al THERAPY CDT Enthesopathies documented in this encounter Visit Diagnoses Diagnosis Other peripheral enthesopathies - Primar y documented in this encounter Care Teams Barnworker Groom Relationship Specialty Start Date End Date Selma Good, SEAN REFINERY OPERATOR VISBREAKING PCP - General 04/09/08 04/07/15 [address] [place] [address] documented as of this encounter
--- OUTSIDE RECORDS SUMMARY | 2022-01-17 22:17 | XMS_ITS | Encounter Summary ---
:1965 Author Organization [facility] Address [address] [place] [address] Care Team Providers Name Role Phone Selma Good APRN MEDICAID BILLING SPECIALIST Primary Care Provider [phone] Reason for Visit [facility] Physical Therapy (Routine) - Closed Specialty Diagnoses / Procedures Referred By Contact Refer red To Contact Rayo Whitehead, MARÍA [facility] [address] [facility] [address] [place] [address] Referral ID Status Reason Start Date Expiration Date Visits Requ ested Visits Authorized HP - FOOT Closed 01/03/2010 06/10/2010 12 10 Encounter Details Date Type Department Care Team Description 01/25/2010 Therapy Visit [place] for Graciela Dupree, PT Other Peripheral Athletic Medicine - [address] Enthesopathies (Primary [place] [facility] [place] [address] Dx) Therapy [phone] [address] (Work) [place] [address] Social History Tobacco Use Types Packs/Day Years [...] How often do you attend yazidi or buddhism Patient refused 08/08/2019 services? Do you belong to any clubs or organizations such as No 08/08/2019 yazidi groups, [employer], [employer] or athletic groups, or school groups? How [...] documented as of this encounter Progress Notes Graciela Dupree - 01/25/2010 5:45 PM CDT Subjective: HPI Objective: System Physical Exam General ROS Assessment/Plan: SUBJECTIVE Subjective changes as noted by pt: Sore for 1 day after plantar fascia massage, but pain level is generally better. Current pain level: 4/10 Changes in function: Yes (See Goal flowsheet attached for changes in current functional level) Adverse reaction to treatment or activity: None OBJECTIVE Changes in objective findings: Yes, Passive right great toe extension 90 deg, active right 10 degrees. Moderate right plantar fascial tightness. Gait is antalgic without effort with poor heelstrike. ASSESSMENT Megan continues to require intervention to meet STG and LTG's: PT Patient's symptoms are resolving. Response to therapy has shown an improvement in pain level, ROM and flexibility Progress made towards STG/LTG? Yes (See Goal flowsheet attached for updates on achievement of STG and LTG) PLAN Continue current treatment plan until patient demonstrates readiness to progress to higher level exercises. POWERHOUSE MECHANIC HELPER/ATC plan: N/A Please refer to the daily flowsheet for treatment today, total treatment time and time spent performing 1:1 timed codes. documented in this encounter Plan of Treatment Not on filedocumented as of this encounter Procedures Procedure Name Priority Date/Time Associated Diagnosis Comme nts ZZC MANUAL THER Routine 01/25/2010 5:45 PM Other Peripheral TECH,1+REGIONS,EA 15 CDT Enthesopathies MIN ZZC THERAPEUTIC Routine 01/25/2010 5:45 PM Other Peripheral EXERCISES CDT Enthesopathies ZZC ELECTRIC CURRENT Routine 01/25/2010 5:45 PM Other Peripher al THERAPY CDT Enthesopathies documented in this encounter Visit Diagnoses Diagnosis Other peripheral enthesopathies - Primar y documented in this encounter Care Teams Cryptologic Supervisor Relationship Specialty Start Date End Date Danilo-Selma Mccoy, CALL CENTRE SUPERVISOR MEDICAID BILLING SPECIALIST PCP - General 04/09/08 04/07/15 [address] [facility] [place] [address] documented as of this encounter
--- OUTSIDE RECORDS SUMMARY | 2022-01-17 22:17 | XMS_ITS | Encounter Summary ---
:1965 Author Organization [facility] Address [address] [place] [address] Care Team Providers Name Role Phone Selma Good APRN COMPLAINT INSPECTOR Primary Care Provider [phone] Reason for Visit [facility] Physical Therapy (Routine) - Closed Specialty Diagnoses / Procedures Referred By Contact Refer red To Contact Rayo Whitehead, MARÍA [facility] [address] [place] [address] Referral ID Status Reason Start Date Expiration Date Visits Requ ested Visits Authorized HP - FOOT Closed 01/03/2010 06/10/2010 12 10 Encounter Details Date Type Department Care Team Description 01/31/2010 Therapy Visit [place] for [facility] Athletic Medicine - [address] [place] Enthesopathies (Primary [place] [facility] [address] Dx) Therapy [facility] [address] [place] [address] [place] [address] [phone] Social History Tobacco Use Types Packs/Day Years [...] How often do you attend mormon or congregation Patient refused 08/08/2019 services? Do you belong to any clubs or organizations such as No 08/08/2019 mormon groups, [employer], fra[employer]ob[employer] or athletic groups, or school groups? How [...] Diagnosis Comme nts ZZC MANUAL THER Routine 01/31/2010 3:51 PM Other Peripheral TECH,1+REGIONS,EA 15 CDT Enthesopathies MIN ZZC THERAPEUTIC Routine 01/31/2010 3:51 PM Other Peripheral EXERCISES CDT Enthesopathies ZZC ELECTRIC CURRENT Routine 01/31/2010 3:51 PM Other Peripher al THERAPY CDT Enthesopathies documented in this encounter Visit Diagnoses Diagnosis Other peripheral enthesopathies - Primar y documented in this encounter Care Teams Manufacturers Representative Relationship Specialty Start Date End Date Selma Good, SHAFT SINKER COMPLAINT INSPECTOR PCP - General 04/09/08 04/07/15 [address] [facility] [place] [address] documented as of this encounter
--- OUTSIDE RECORDS SUMMARY | 2022-01-17 22:17 | XMS_ITS | Encounter Summary ---
:1965 Author Organization [facility] Address [address] [place] [address] Care Team Providers Name Role Phone Selma Good APRN KELP OR SEAGRASS GATHERER Primary Care Provider [phone] Encounter Details Date Type Department Care Team Description 01/19/2010 Orders Only [facility] Eag an Prediabetes [address] [place] [address] Social History Tobacco Use Types Packs/Day [...] How often do you attend advent or mandaen Patient refused 08/08/2019 services? Do [...] Name Priority Date/Time Associated Diagnosis Comme nts HCL GLYCATED Routine 01/19/2010 3:46 PM Prediabetes Results f or this HEMOGLOBIN CDT procedure are i n the results section. documented in this encounter Results (ABNORMAL) HEMOGLOBIN A1C (01/19/2010 3:46 PM CDT) P athologist Signature Hemoglobin A1C 6.4 (H) 4.3 - 6.0 [facility] Specimen Anatomical Collection Method Collection Time Receive d Time (Source) Location / / Volume Laterality 01/19/2010 3:46 PM 0 3:51 CDT PM CDT Selma Good APRN KELP OR SEAGRASS GATHERER LABORATORY Performing Organization Address City/State/ZIP Code Phon e Number [address] [address] [facility] documented in this encounter Visit Diagnoses Diagnosis Prediabetes Other abnormal glucose documented in this encounter Care Teams Postal Service Mail Processor Relationship Specialty Start Date End Date Selma Good, ASSISTED LIVING ASSISTANT KELP OR SEAGRASS GATHERER PCP - General 04/09/08 04/07/[address] [facility] [place] [address] documented as of this encounter
--- OUTSIDE RECORDS SUMMARY | 2022-01-17 22:17 | XMS_ITS | Encounter Summary ---
:1965 Author Organization [facility] Address [address] [place] [address] Care Team Providers Name Role Phone Selma Good APRN MIDDLE SCHOOL MUSIC TEACHER Primary Care Provider [phone] Reason for Visit Reason Onset Date Comments Chronic Care Conference Provider Overview 04/06/2010 Encounter Details Date Type Department Care Team Description 04/06/2010 Telephone [facility] Eag adarsh Good, Chronic Care Conference [address] [facility] Selma Angeles APRN MIDDLE SCHOOL MUSIC TEACHER Provider Overview [place] [phone] [address] [facility] [phone] [facility] [place] [address] (Wo rk) Social History [...] often do you attend jehovah's witness or mormonism Patient refused 08/08/2019 services? Do [...] Miscellaneous Notes Telephone Encounter - Selma Good - 04/06/2010 1:13 PM CDT Chronic Care Coordination Provider Overview (C3PO) Met in consultation for: Hypertension Parameters Addressed: B/P management Recommended follow up: already scheduled with PCP this wk Considerations: savella tends to increase BP. FYI documented in this encounter Plan of Treatment Not on filedocumented as of this encounter Visit Diagnoses Not on filedocumented in this encounter Care Teams Spray Applicator Relationship Specialty Start Date End Date Selma Good, AERONAUTICAL RESEARCH ENGINEER [employer]DLE SCHOOL MUSIC TEACHER PCP - General 04/09/08 04/07/[address] [facility] [address] [place], [place] [address] documented as of this encounter
--- OUTSIDE RECORDS SUMMARY | 2022-01-17 22:17 | XMS_ITS | Encounter Summary ---
:1965 Author Organization [facility] Address [address] [place] [address]. [place] [address] Care Team Providers Name Role Phone Selma Good APRN GIFT SHOP MANAGER Primary Care Provider [phone] Encounter Details Date Type Department Care Team Description 03/11/2010 Outpatient Visit [facility] Ricardo Sotelo [facility] PA-C Results [id number] [facility] [address] [place] [address] (Wo rk) Social History Tobacco Use Types [...] How often do you attend [facility] or jain Patient refused 08/08/2019 services? Do [...] documented as of this encounter Progress Notes Ricardo Sotelo - 03/18/2010 12:45 PM CDT FINAL NEW PATIENT SLEEP CONSULTATION Megan Choi is seen at the request of Selma Good NP for concerns of insomnia and obstructive sleep apnea. CHIEF COMPLAINT: Don't sleep well through the night for years. She also complains of being tired all the time. HISTORY OF PRESENT ILLNESS: Megan Choi is a pleasant 44-year-old female who [facility] for concerns of daytime sleepiness and poor sleep quality. Megan goes to bed around 10:00 p.m. It may take her 1-2 hours to fall asleep. Sometimes she feels she is up almost all night. If she does get to sleep she wakes up between 1 and 5 times a night. She is not sure whyshe wakes up, but once awake she feels she has to use the restroom some of the time. She also has neck pain occasionally. Usually she is able to get right back to sleep. However, sometimes she is up for the night. She wakes for work at 4:45 and feels unrefreshed from her sleep. On weekends she goes tobed around 11:30 and may sleep in until 9:00. She has particular difficulty falling asleep on because she is worried about going to work the next day. Her sleep is disrupted by her 's snoring and occasionally she has to go to the couch. She says that her will not do anything to fix his snoring and she is afraid to wear earplugs because then she would not be able to hear the phone in case of an emergency. She used to have to be on-call when their parents' health was poor in case of an emergency. All of their parents have since , but she is still hypervigilant and thus does not want to wear ear plugs. She does not intentionally nap, but occasionally she willfall asleep on the couch inadvertently for about 20 minutes. When that happens, she has a very difficult time falling asleep at night. With regard to sleep hygiene, she may watch TV in bed on Sunday or Sunday night. She also worries in bed about everything, primarily money. She says her brain is very active when she lies down. She denies reading or eating in bed. Megan is told that she snores. She is not sure how loud she snores or how often she snores. She has never been told that she has pauses in her breathing during her sleep and she does not notice waking herself with a snort, choking sensation or shortness of breath. She occasionally has dry mouth upon awakening and used to have headaches every day all day. She has not had headaches in the last week. She did recently start a number of new medications for headaches. Megan denies symptoms of restless legs. She denies nightmares. She is not sure if she grinds herteeth. There is no history of sleepwalking, sleep talking or dream enactment behavior. She does havea history of nocturnal enuresis as a child. Megan [place] Sleepiness Score is 12/24 consistent with mild excessive daytime sleepiness. She has occasional drowsiness while driving, but she does not drive very much. She usually takes the bus to work or has her drive. There is no history of cataplexy, sleep paralysis or hypnagogic hallucinations. FAMILY HISTORY: Her daughter snores; father and mother snored. No one in the family has been diagnosed with a sleep disorder to her knowledge. All 3 of her siblings and her parents had high blood pressure. Her parents had heart disease. Her brother has had a stroke and all 3 siblings and both parentshad diabetes. SOCIAL HISTORY: Megan lives with her , 2 daughters and 6-month-old grand-daughter. They have a dog and a cat that are not allowed in her bed. 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 She denies having ever smoked cigarettes. Denies illicit drug use. She may have 3 caffeinated soft drinksas late as 8:00 p.m. May have 2 alcoholic beverages a month. She exercises 3 times a week doing cardio the gym. PAST MEDICAL HISTORY: Chronic neck pain, high cholesterol, reflux, migraines, diabetes. PAST SURGICAL HISTORY: Tonsillectomy and adenoidectomy at about age 8. C- section in 1987 and fusion of cervical vertebrae 5-7 in 2000. Fusion lumbar and sacral vertebrae 2004, 2005 and 2006. MEDICATIONS: 1. Aspirin 81 mg daily. 2. Omeprazole 20 mg daily. 3. Simvastatin 20 mg daily. 4. Lisinopril 20 mg daily. 5. Topiramate 25 mg twice daily 6. Metformin 500 mg 4 times daily with meals. 7. Gabapentin 300 mg 1 tablet in the morning, 3 in the evening. 8. Savella 50 mg b.i.d. 9. Tramadol. ALLERGIES: No known drug allergies. REVIEW OF SYSTEMS: Megan's weight has been relatively stable over the last 4 years or so. She may be starting to lose weight with exercise. She has night sweats constantly, worse over the last couple of weeks, may be related to having just started metformin. She has had some changes in vision. History of frequent migraine headaches, although they are resolving over the last week with new medications. She has occasional depression. She denies feeling depressed currently. The remainder of the complete review of systems is negative. PHYSICAL EXAMINATION: VITAL SIGNS: Height 5 feet 3 inches, weight 196 pounds, BMI 34. Blood pressure 131/81, heart rate 91, temperature 97.6, SpO2 98% on room air. GENERAL: Ms. Choi is a pleasant, cooperative female in no apparent distress. HEENT: Head is normocephalic and atraumatic. Maxillary and frontal sinuses are nontender. Eyes: PERRL, EOMI. Conjunctivae pink, sclerae are anicteric. Nose: Septum is approximatelymidline. Throat: Mallampati grade 3, tonsils surgically absent. Pharynx is moist, nonerythematous and without exudate. NECK: Circumference 14.75 inches. Trachea is at midline. No cervical lymphadenopathy or thyromegaly. RESPIRATORY: Respirations regular and symmetrical. LUNGS: Clear bilaterally without crackles or wheezes. CARDIOVASCULAR: Heart tones regular S1 and S2 without gallop, murmur, or rub. There is trace pitting edema in the lower extremities bilaterally. GASTROINTESTINAL: Abdomen is soft and obese. Bowel sounds present. No tenderness to palpation. MUSCULOSKELETAL: Moves all extremities. Muscle strength 5/5. NEUROLOGIC: Alert and oriented, steady gait. Cranial nerves II-XII intact. ASSESSMENT: 1. Possible obstructive sleep apnea. She is told that she snores. She has unrefreshing sleep, a fairly crowded airway and insomnia. 2. Insomnia. Megan may take an hour or two to fall asleep and sometimes she may not achieve sleep at all. She wakes up in the middle of the night a number of times and may or may not be able to reinitiate sleep. She seems to worry quite a bit. This seems to be the primary issue driving her insomnia. PLAN: 1. Polysomnogram split night with titration at [facility]. Pathophysiology, risk factors, and implications of untreated MYLES were discussed as were treatment options and the routine of undergoing polysomnography. She was advised to avoid oversedation, alcohol consumption, sleep deprivation anddriving while excessively sleepy. 2. Insomnia. We discussed sleep hygiene measures. She is advised to try to keep a regular sleep-wake schedule, avoid naps and sleeping in for more than an hour or so. She is encouraged to avoid activities in bed other than sleep, avoid caffeine within 6 hours of bed, avoid alcohol and late meals. She is encouraged to continue to exercise but keep it at least 3 hours p rior to bedtime. She is encouraged to keep a journal about 10-15 minutes a day around dinnertime, write down her worries and how she plans on dealing with them to help take it off of her mind at night.She is also encouraged to schedule about 20-30 minutes of wind-down time at night to relax, avoid work and chores and that time. She was given a pamphlet on sleep hygiene produced by the [employer] and was encouraged to review the book, Say Pascual to Insomnia or No More Sleepless Nights. We may consider referral to cognitive behavioral therapy to help with relaxation techniques and stress reduction or stress management at the next visit. I will see the patient a few weeks after the polysomnogram is complete so we can review the resultsof the study. Thank you for referring Ms. Choi to the [facility]. I appreciate the opportunity to participate in her care. Sixty minutes were spent during this visit, over half of which was in counseling and coordination of care. 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 mary kate Electronically signed on 03/18/2010 12:44 by RICARDO SOTELO PA-C MT: mary kate Name: MEGAN CHOI Account: [id number] : 1965 Visit Date: 03/11/2010 Document: [id number] cc: Selma Good NON LICENSED NUCLEAR PLANT OPERATOR documented in this encounter Plan of Treatment Not on filedocumented as of this encounter Visit Diagnoses Not on filedocumented in this encounter Care Teams Pest Locator Relationship Specialty Start Date End Date Selma Good, SEAN GIFT SHOP MANAGER PCP - General 04/09/08 04/07/15 [id number] [facility] [place] [id number] documented as of this encounter
--- OUTSIDE RECORDS SUMMARY | 2022-01-17 22:17 | XMS_ITS | Encounter Summary ---
:1965 Author Organization [facility] Address [address] [place] [address] Care Team Providers Name Role Phone Selma Good APRN GRINDING MACHINE OPERATOR PORTABLE Primary Care Provider [phone] Encounter Details Date Type Department Care Team Description 04/29/2011 Orders Only [facility] [place] an Type 2 diabetes, HbA1C [address] goal < 7% (H) [place] [id number] Social History Tobacco Use [...] How often do you attend uatsdin or latter-day Patient refused 08/08/2019 services? Do [...] Associated Comments Diagnosis ALBUMIN RANDOM URINE Routine 04/29/2011 8:16 AM Type 2 diabete s, Results for this QUANTITATIVE TANNING SALON ATTENDANT HbA1C goal < 7% (H) procedur e are in the results section. LIPID REFLEX TO DIRECT Routine 04/29/2011 8:15 AM Type 2 diabe shirley, Results for this LDL PANEL TANNING SALON ATTENDANT HbA1C goal < 7% (H) procedur e are in the results section. HEMOGLOBIN A1C Routine 04/29/2011 8:15 AM Type 2 diabetes, Res ults for this TANNING SALON ATTENDANT HbA1C goal < 7% (H) procedur e are in the results section. COMPREHENSIVE Routine 04/29/2011 8:15 AM Type 2 diabetes, Resu lts for this METABOLIC PANEL TANNING SALON ATTENDANT HbA1C goal < 7% (H) proce dure are in the results section. documented in this encounter Results Microalbumin quantitative, random urine (04/29/2011 8:16 AM TANNING SALON ATTENDANT) P athologist Signature Creatinine 241 mg/dL [facility] Urine [facility] Albumin Urine 10 mg/L [facility] mg/L [facility] Albumin Urine 4.27 0 - 20 [facility] mg/g Cr mg/g Cr [facility] Specimen Anatomical Collection Method Collection Time Receive d Time (Source) Location / / Volume Laterality Urine specimen 04/29/2011 8:16 AM 011 8:17 (specimen) TANNING SALON ATTENDANT AM TANNING SALON ATTENDANT Selma Good APRN GRINDING MACHINE OPERATOR PORTABLE LAB - URINE ORDERABLES Performing Organization Address City/State/ZIP Code Phon e Number [facility] [address] [place] [address] [facility] Comprehensive metabolic panel (BMP + Alb, Alk Phos, ALT, AST, Total. Bili, TP) (04/29/2011 8:15 AM TANNING SALON ATTENDANT) athologist Signature Sodium 142 133 - 144 [facility] mmol/L [facility] Potassium 3.9 3.4 - 5.3 [facility] mmol/L [facility] Chloride 107 94 - 109 [facility] mmol/L [facility] Carbon Dioxide 25 20 - 32 [facility] mmol/L [facility] Anion Gap 10 6 - 17 [facility] mmol/L [facility] Glucose 97 60 - 99 [facility] mg/dL [facility] Urea Nitrogen 13 5 - 24 [facility] mg/dL [facility] Creatinine 0.74 0.52 - [facility] 1.04 mg/dL [facility] GFR Estimate 84 >60 [facility] mL/min/1.7 [facility] m2 GFR Estimate If >90 >60 [facility] Black mL/min/1.7 [facility] m2 Calcium 9.3 8.5 - 10.4 [facility] mg/dL [facility] Bilirubin Total 0.7 0.2 - 1.3 [facility] mg/dL [facility] Albumin 4.1 3.9 - 5.1 [facility] g/dL [facility] Comment: Reference range changed on 02/10. Protein Total 7.5 6.8 - 8.8 g/dL [facility] Comment: As of 07, reference range reflects plasma specimen type. Alkaline Phosphatase 78 40 - 150 U/L [facility] ALT 19 0 - 50 U/L [facility] AST 21 0 - 45 U/L [facility] Specimen Anatomical Collection Method Collection Time Receive d Time (Source) Location / / Volume Laterality Blood specimen 04/29/2011 8:15 AM 011 8:17 (specimen) TANNING SALON ATTENDANT AM TANNING SALON ATTENDANT Selma Good APRN GRINDING MACHINE OPERATOR PORTABLE LAB - BLOOD ORDERABLES Performing Organization Address City/[facility]/ZIP Code Phon e Number [facility] [address] [place] [address] [phone] [facility] (ABNORMAL) Lipid Profile with reflex to direct LDL (04/29/2011 8:15 AM TANNING SALON ATTENDANT) athologist Signature Cholesterol 123 0 - 200 [facility] mg/dL CLINIC [facility] Comment: LDL Cholesterol is the primary guide to therapy. The NCEP recommends further evaluation of: patients with cholesterol greater than 200 mg/dL if additional risk facto rs are present, cholesterol greater than 240 mg/dL, triglycerides greater than 1 50 mg/dL, or HDL less than 40 mg/dL. Triglycerides 63 0 - 150 mg/dL [facility] HDL Cholesterol 40 (L) 50 - 110 mg/dL [facility] LDL Cholesterol Calculated 70 0 - 129 mg/dL [facility] Comment: LDL Cholesterol is the primary guide to therapy: LDL-cholesterol goal in high risk patients is <100 mg/dL and in very high risk patients is <70 mg/dL. VLDL-Cholesterol 13 0 - 30 mg/dL [facility] Cholesterol/HDL Ratio 3.1 0.0 - 5.0 [facility] Specimen Anatomical Collection Method Collection Time Receive d Time (Source) Location / / Volume Laterality Blood specimen 04/29/2011 8:15 AM 011 8:17 (specimen) TANNING SALON ATTENDANT AM TANNING SALON ATTENDANT Selma Good APRN, CNP LAB - BLOOD ORDERABLES Performing Organization Address City/[facility]/ZIP Code Phon e Number [facility] [address] [place] [phone] [facility] Hemoglobin A1c (04/29/2011 8:15 AM TANNING SALON ATTENDANT) athologist Signature Hemoglobin A1C 5.6 4.3 - 6.0 [facility] % CLINIC LAB Specimen Anatomical Collection Method Collection Time Receive d Time (Source) Location / / Volume Laterality Blood specimen 04/29/2011 8:15 AM 011 8:17 (specimen) TANNING SALON ATTENDANT AM TANNING SALON ATTENDANT Selma Good APRN, CNP LAB - BLOOD ORDERABLES Performing Organization Address City/State/ZIP Code Phon e Number [facility] [address] [facility] [place] [id number] [facility] documented in this encounter Visit Diagnoses Diagnosis Type 2 diabetes, HbA1c goal < 7% (H) Type II or unspecified type diabetes sukhdev litus without mention of complication, not stated as uncontrolled documented in this encounter Care Teams Fold Skiver Relationship Specialty Start Date End Date Selma Good APRN CNP PCP - General 04/09/08 04/07/15 [address] [facility] [place] [id number] documented as of this encounter
--- OUTSIDE RECORDS SUMMARY | 2022-01-17 22:17 | XMS_ITS | Encounter Summary ---
:1965 Author Organization [facility] Address [address] [place] [address] Care Team Providers Name Role Phone Selma Good PSYCHIATRIC CNS PROPERTY SPECIALIST Primary Care Provider [phone] Reason for Referral Referral not Required - Closed Specialty Diagnoses / Procedures Referred By Contact Refer red To Contact Diagnoses Neck pain [facility]IC CNS PROPERTY SPECIALIST CNTR [address] [place] [address] [place] [phone] Referral ID Status Reason Start Date Expiration Date Visits Requ ested Visits Authorized [id number] Closed 01/12/2010 01/12/2010 1 1 - Closed Specialty Diagnoses / Procedures Referred By Contact Refer red To Contact Diagnoses Prediabetes Selma Good, PSYCHIATRIC CNS PROPERTY SPECIALIST [address] [facility] [place] [address] Referral ID Status Reason Start Date Expiration Date Visits Requ ested Visits Authorized [id number] Closed 01/12/2010 01/12/2010 1 1 eferral not Required - Closed Specialty Diagnoses / Procedures Referred By Contact Refer red To Contact Diagnoses Insomnia Danilo-Steer, Selma J, NAYELY [facility] SLEEP PSYCHIATRIC CNS [facility] [address] [facility] [address] [place] [address] [place] [id number] Referral ID Status Reason Start Date Expiration Date Visits Requ ested Visits Authorized [id number] Closed 01/12/2010 01/12/2010 1 1 Reason for Visit Reason Comments Physical Pre Visit Planning - Done Encounter Details Date Type Department Care Team Description 01/12/2010 Office Visit [facility] Florentino, Routine Gen eral Medical Examination at a Health Care Facility (Primary Dx); Pino Angeles APRN Insomnia; [address] [facility] Prediabetes; [place] [phone] [place] [address] Bruises Easily; [phone] [facility] Breast Cancer Screening; [place] [address] Neck Pain; [phone] Chronic Fatigue (Work) Social History Tobacco Use Types Packs/Day [...] How often do you attend adventism or jain Patient refused 08/08/2019 services? 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 If you are not eating dairy products you also need 400 IU of vitamin D per day which can be obtained in either a multivitamin or in some of the Calcium tablets. Mammogram: Expect a phone call to schedule this; Will do ultrasound instead for screening. Sleep Issues: call [facility] at [phone], and schedule a sleep study. They will forward your results to me and afterward, schedule an appointment with me to discuss your results and a plan. DON'T FORGET: Please let Dr. Martinez know about your sleeping issues at neurology follow up. Prediabetes: Schedule an appointment with Arianna, the rn diabetes educator to discuss dietary Breast center: Please call them and schedule a consultation appointment re: breast reduction surgeryin relation to chronic neck pain and headaches. Lab work results will be emailed by [employer] or mailed to your home. Your prescriptions have been faxed to your pharmacy. documented in this encounter Progress Notes Selma Good - 01/11/2010 2:21 PM CDT CC: Megan Choi is an 44 year old woman who presents for preventive health visit. HPI: Besides routine health maintenance, she would like to discuss other concerns. 1. Insomnia [780.52A] x yrs. She does have a difficult time falling and staying asleep. This has caused excessive day time drowsiness. 2. Prediabetes [790.29AQ] 3. Bruises Easily [782.9F] 4. Breast Cancer Screening [V76.10C], mammogram was painful for her. 5. Neck Pain [723.1B] that leads to migraines. Her neurologist suggested br reduction, which she is open to. Healthy Habits: Do you get at least three servings of dairy daily (milk, cheese, yogurt, etc.)? no Outside of work or daily activities, how many days per week do you exercise for 30 minutes or longer? 3 Have you had an eye exam in the past two years? yes Do you see a dentist twice per year? yes Staff Signature Shayy Ramos MA PHQ-2 Over the last two weeks- Have you been bothered by little interest or pleasure in doing things? No Over the last two weeks- Have you been feeling down, depressed, or hopeless? No Abuse: Current or Past(Physical, Sexual or Emotional)- No Do you feel safe in your environment - Yes History Substance Use Topics ??? Tobacco Use: Never ??? Alcohol Use: Yes Rare The patient does not drink >3 drinks per day nor >7 drinks per week. Reviewed orders with patient. Reviewed health maintenance and updated orders accordingly - Yes Staff Signature Shayy Ramos MA History of abnormal Pap smear: Low risk for cervical cancer. Has had three normal paps over five years. Screen patient every 3 years - updated in problem list. All Histories reviewed and updated in [employer]. ROS: C: NEGATIVE for fever, chills, change [...] NEGATIVE for unusual urinary or vaginal symptoms. No vaginal bleeding. M: NEGATIVE for significant arthralgias or myalgia N: NEGATIVE for weakness, dizziness or paresthesias P: NEGATIVE for changes in mood or affect MENOPAUSAL OBJECTIVE: BP 116/78 Pulse 80 Wt 205 lb 7 oz (93.186 kg) GENERAL APPEARANCE: health, alert and no distress EYES: Eyes grossly [...] and normal cervix, adnexae, and uterus without masses or discharge MS: no musculoskeletal defects are noted and gait is age appropriate without ataxia SKIN: no suspicious lesions or rashes NEURO: Normal strength and tone, sensory exam grossly normal, mentation intact and speech normal PSYCH: mentation appears normal and affect normal/bright Counseling: regular exercise weight management healthy diet/nutrition Osteoporosis Prevention/Bone Health (trell)menopause management ATP III Guidelines ICSI Preventive Guidelines ASSESSMENT / PLAN: V70.0 Routine General Medical Examination at a Health Care Facility (primary encounter diagnosis) Comment: Plan: GLUCOSE, TSH W/FREE T4 REFLEX, VITAMIN D DEFICIENCY SCREENING, MIGRAINE DISABILITY ASSESSMENT MIDAS 780.52A Insomnia Comment: Plan: [facility]EP CENTER 790.29AQ Prediabetes Comment: Plan: HEMOGLOBIN A1C, CONSULT DIABETIC EDUCATION 782.9F Bruises Easily Comment: Plan: CBC WITH PLATELETS, DIFF, PTT THROMBOPLAS TIME PARTIAL V76.10C Breast Cancer Screening Comment: Plan: LT SONO BREAST, RT SONO BREAST 723.1B Neck Pain Comment: Plan: [facility] 780.79U Chronic Fatigue Comment: Plan: CRP, INFLAMMATION Patient Instructions CALCIUM: Recommendations: Teenagers and premenopausal women: 1200 mg/day, and Lactating women: 1500 mg/day, Men and Postmenopausal women on estrogen: 1200mg/day, Postmenopausal women not on estrogen: 1500 mg/day. If you are not eating dairy products you also need 400 IU of vitamin D per day which can be obtained in either a multivitamin or in some of the Calcium tablets. Mammogram: Expect a phone call to schedule this; Will do ultrasound instead for screening. Sleep Issues: call [facility] at [phone], and schedule a sleep study. They will forward your results to me and afterward, schedule an appointment with me to discuss your results and a plan. DON'T FORGET: Please let Dr. Martinez know about your sleeping issues at neurology follow up. Prediabetes: Schedule an appointment with Arianna, the rn diabetes educator to discuss dietary Breast center: Please call them and schedule a consultation appointment re: breast reduction surgeryin relation to chronic neck pain and headaches. Lab work results will be emailed by [employer] or mailed to your home. Your prescriptions have been faxed to your pharmacy. documented in this encounter Plan of Treatment Not on filedocumented as of this encounter Procedures Procedure Name Priority Date/Time Associated Comments Diagnosis ZZ CONSULT SLEEP Routine 03/13/2010 Insomnia CENTER HCL 25 HYDROXYVITAMIN Routine 01/12/2010 5:00 Routine General Results for this D2 & D3 PM CDT Medical Examination procedur e are in at a Health Care the results Facility section. HCL CRP, INFLAMMATION Routine 01/12/2010 5:00 Chronic Fatigue Results for this PM CDT procedure are i n the results section. CL AFF CBC WITH Routine 01/12/2010 5:00 Bruises Easily Results for this PLATELETS, DIFF PM CDT procedure ar e in the results section. HCL TSH W/FREE T4 Routine 01/12/2010 5:00 Routine General Resu lts for this REFLEX PM CDT Medical Examination procedur e are in at a Health Care the results Facility section. HCL GLUCOSE Routine 01/12/2010 5:00 Routine General Results f or this PM CDT Medical Examination procedur e are in at a Health Care the results Facility section. CL AFF PTT THROMBOPLAS Routine 01/12/2010 5:00 Bruises Easily Results for this TIME PARTIAL PM CDT procedure are i n the results section. documented in this encounter Results [facility]EP [facility] (03/13/2010) Narrative This result has an attachment that is no t available. Selma Good APRN PROPERTY SPECIALIST REFERRAL CRP, INFLAMMATION (01/12/2010 5:00 PM CDT) Analysis Performed At Path logist Time Signature CRP Inflammation 7.9 0.0 - 8.0 [facility] mg/L [facility] Specimen Anatomical Collection Method Collection Time Receive d Time (Source) Location / / Volume Laterality 01/12/2010 5:00 PM 0 5:03 CDT PM CDT Selma Good APRN PROPERTY SPECIALIST LABORATORY Performing Organization Address City/State/ZIP Code Phon e Number [facility] [address] [place] [address] [facility] VITAMIN D DEFICIENCY SCREENING (01/12/2010 5:00 PM CDT) Component Value Ref Test Analysis Performed At [facility] gist Range Method Time Signature 25 [place] Vit D2 <5 ug/L [facility] 25 [place] Vit D3 32 ug/L [facility] 25 [place] Vit D <37 30 - 75 [facility] total Season, race, dietary intake, and treatm ent affect the concentration of ug/L [facility] 74-bxzoroe-Pqekaky D. Values may decrease during gordon er months and increase CAMPUS LABS during summer months. Values less than 30 ug/L may indicate Vitamin D deficiency. Specimen Anatomical Collection Method Collection Time Receive d Time (Source) Location / / Volume Laterality 01/12/2010 5:00 PM 0 5:03 CDT PM CDT Selma Good APRN PROPERTY SPECIALIST LABORATORY Performing Organization Address City/State/ZIP Code Phon e Number [facility] [address] [place] [address] [facility] PTT THROMBOPLAS TIME PARTIAL (01/12/2010 5:00 PM CDT) P athologist Signature PTT 27 22 - 37 sec [facility] Specimen Anatomical Collection Method Collection Time Receive d Time (Source) Location / / Volume Laterality 01/12/2010 5:00 PM 0 5:03 CDT PM CDT Selma Good APRN PROPERTY SPECIALIST LABORATORY Performing Organization Address City/State/ZIP Code Phon e Number [facility] [address] [place] [address] [facility] CBC WITH PLATELETS, DIFF (01/12/2010 5:00 PM CDT) Patholo gist Method Time Signature WBC 7.9 4.0 - [facility] 11.0 [facility] 10e9/L LAB RBC Count 4.51 3.8 - 5.2 [place] 10e12/L [facility] Hemoglobin 13.6 11.7 - [facility] 15.7 g/dL [facility] Hematocrit 41.7 35.0 - [facility] 47.0 % [facility] MCV 93 78 - 100 [place] fl [facility] MCH 30.2 26.5 - [facility] 33.0 pg [facility] MCHC 32.6 31.5 - [facility] 36.5 g/dL [facility] RDW 12.8 10.0 - [facility] 15.0 % [facility] Platelet Count 259 150 - 450 [place] 10e9/L [facility] Diff Method Automated [place] Method [facility] % Neutrophils 61 40 - 75 % [facility] % Lymphocytes 29 20 - 48 % [place] [facility] % Monocytes 8 0 - 12 % [facility] % Eosinophils 1 0 - 6 % [facility] % Basophils 1 0 - 2 % [facility] Absolute 4.8 1.6 - 8.3 [place] Neutrophil 10e9/L [facility] Absolute 2.3 0.8 - 5.3 [place] Lymphocytes 10e9/L [facility] Absolute 0.7 0.0 - 1.3 [place] Monocytes 10e9/L [facility] Absolute 0.1 0.0 - 0.7 [place] Eosinophils 10e9/L [facility] Absolute 0.0 0.0 - 0.2 [place] Basophils 10e9/L [facility] Specimen Anatomical Collection Method Collection Time Receive d Time (Source) Location / / Volume Laterality 01/12/2010 5:00 PM 0 5:03 CDT PM CDT Selma Good APRN PROPERTY SPECIALIST LABORATORY Performing Organization Address City/State/ZIP Code Phon e Number [facility] [address] [place] [address] [facility] TSH W/FREE T4 REFLEX (01/12/2010 5:00 PM CDT) P athologist Signature TSH 1.63 0.4 - 5.0 [place] [facility] mU/L [facility] Specimen Anatomical Collection Method Collection Time Receive d Time (Source) Location / / Volume Laterality 01/12/2010 5:00 PM 0 5:03 CDT PM CDT Selma Good APRN PROPERTY SPECIALIST LABORATORY Performing Organization Address City/State/ZIP Code Phon e Number [facility] [address] [place] [address] [facility] LAB (ABNORMAL) GLUCOSE (01/12/2010 5:00 PM CDT) P athologist Signature Glucose 149 (H) 60 - 99 [facility] mg/dL CLINIC LAB Specimen Anatomical Collection Method Collection Time Receive d Time (Source) Location / / Volume Laterality 01/12/2010 5:00 PM 0 5:03 CDT PM CDT Selma Good APRN, CNP LABORATORY Performing Organization Address City/State/ZIP Code Phon e Number [facility] [address] [facility] [place] [address] [facility] documented in this encounter Visit Diagnoses Diagnosis Routine [facility] - Primary Insomnia Insomnia, unspecified Prediabetes Other abnormal glucose Bruises easily Other symptoms involving skin and integu mentary tissues Neck pain Cervicalgia Chronic fatigue Other malaise and fatigue documented in this encounter Care Teams Test Carrier Relationship Specialty Start Date End Date Selma Good APRN CNP PCP - General 04/09/08 04/07/15 [address] [facility] [place] [address] documented as of this encounter
--- OUTSIDE RECORDS SUMMARY | 2022-01-17 22:17 | XMS_ITS | Encounter Summary ---
:1965 Author Organization [facility] Address [address] [place] [address] Care Team Providers Name Role Phone Selma Bullard MINE LABORER COIL SPRING ASSEMBLER Primary Care Provider [phone] Reason for Visit Reason Onset Date Comments Cellulitis 08/29/2010 Encounter Details Date Type Department Care Team Description 08/29/2010 Telephone [facility] Eag Selma Anthony, Cellulitis [address] [facility] MINE LABORER COIL SPRING ASSEMBLER [place] [phone] [address] [facility] [phone] [facility] [place] [address] (Wo rk) Social [...] How often do you attend christian or bahai Patient refused 08/08/2019 services? Do [...] this encounter Miscellaneous Notes Telephone Encounter - Christina Phipps - 08/29/2010 8:13 AM CDT Patient calling as saw Selma Bullard on Sunday for cellulitis. She was told by Selma if no better or worse to call Sunday and see a partner. Not worse, but not improved. Scheduled with Dr. Méndez at 2:15 pm.Christina Phipps RN Christina Phipps RN documented in this encounter Plan of Treatment Not on filedocumented as of this encounter Visit Diagnoses Not on filedocumented in this encounter Care Teams Window Draper Relationship Specialty Start Date End Date Selma Bullard, MINE LABORER COIL SPRING ASSEMBLER PCP - General 04/09/08 04/07/[address] [facility] [address] documented as of this encounter
--- OUTSIDE RECORDS SUMMARY | 2022-01-17 22:17 | XMS_ITS | Encounter Summary ---
:1965 Author Organization [facility] Address [address] [place] [address] Care Team Providers Name Role Phone Selma Good APRN BANQUET CAPTAIN Primary Care Provider [phone] Reason for Visit [facility] (Routine) - Closed Specialty Diagnoses / Procedures Referred By Contact Refer red To Contact Rayo Whitehead, MARÍA [facility] [address] [place] [address] Referral ID Status Reason Start Date Expiration Date Visits Requ ested Visits Authorized HP - FOOT Closed 01/03/2010 06/10/2010 12 10 Encounter Details Date Type Department Care Team Description 02/07/2010 Therapy Visit [place] [facility] Athletic Medicine - Sal Gonzales Enthesopathies (Primary [facility] [address] Dx) Therapy [place] [address] [place] [address] [place] [address] [phone] Social History Tobacco Use Types Packs/Day Years [...] How often do you attend quaker or sikhism Patient refused 08/08/2019 services? Do you belong to any clubs or organizations such as No 08/08/2019 quaker groups, [employer], [employer] or athletic groups, or school groups? How [...] documented as of this encounter Progress Notes Janet Payne - 02/23/2010 3:21 PM CDT Addended by: JANET PAYNE on: 02/23/2010 Modules accepted: Orders Janet Payne - 02/23/2010 3:21 PM CDT Subjective: HPI Objective: System Physical Exam General ROS Assessment/Plan: DISCHARGE REPORT Progress reporting period is from 01/14/10 to 02/07/10. SUBJECTIVE Subjective: Pt reports being on feet a lot this weekend, and when she attempted to do her exercises,it was too painful. Current Pain level: /10. Previous pain level was 8/10 . Changes in function: Yes (See Goal flowsheet attached for changes in current functional level) Adverse reaction to treatment or activity: None OBJECTIVE Changes noted in objective findings: Yes Objective: Slight increase in tenderness on L plantar fascia today. ASSESSMENT/PLAN Updated problem list and treatment plan: Diagnosis 1: Plantar Fasciitis Pain - hot/cold therapy, US,electric stimulation, manual therapy, self management, education and home program Decreased ROM/flexibility - manual therapy and therapeutic exercise Decreased joint mobility - manual therapy and therapeutic exercise Decreased strength - therapeutic exercise and therapeutic activities Impaired balance - neuro re-education and therapeutic activities Decreased proprioception - neuro re-education and therapeutic activities Inflammation - electric stimulation and iontophoresis Impaired muscle performance - neuro re-education Decreased function - therapeutic activities STG/LTGs have been met or progress has been made towards goals: Yes (See Goal flow sheet completed today.) Assessment of Progress: The patient's condition is improving. Self Management Plans: Patient has been instructed in a home treatment program. Megan continues to require the following intervention to meet STG and LTG's: PT and PT intervention is no longer required to meet STG/LTG. Recommendations: This patient is ready to be discharged from therapy and continue their home treatment program. Please refer to the daily flowsheet for treatment today, total treatment time and time spent performing 1:1 timed codes. documented in this encounter Plan of Treatment Not on filedocumented as of this encounter Procedures Procedure Name Priority Date/Time Associated Diagnosis Comme nts Z MANUAL THER Routine 02/07/2010 5:44 PM Other Peripheral TECH,1+REGIONS,EA 15 CDT Enthesopathies MIN ZZC THERAPEUTIC Routine 02/07/2010 5:44 PM Other Peripheral EXERCISES CDT Enthesopathies [facility] ELECTRIC CURRENT Routine 02/07/2010 5:44 PM Other Peripher al THERAPY CDT Enthesopathies documented in this encounter Visit Diagnoses Diagnosis Other peripheral enthesopathies - Primar y documented in this encounter Care Teams Foot Piece Assembler Relationship Specialty Start Date End Date Selma Good, CORRESPONDENCE TRANSCRIBER BANQUET CAPTAIN PCP - General 04/09/08 04/07/[address] [facility] [address] [place], [place] [address] documented as of this encounter
--- OUTSIDE RECORDS SUMMARY | 2022-01-17 22:17 | XMS_ITS | Encounter Summary ---
:1965 Author Organization [place] Address [address] [place] [address] Care Team Providers Name Role Phone Selma Good APRN HOUSEKEEPING/LAUNDRY SUPERVISOR Primary Care Provider [phone] Reason for Visit Reason Comments Vaginal Problem c/o vaginal itching and disc harge x 2 mos,has tried OTC Monistat 7 day with previous relief Flu Shot Encounter Details Date Type Department Care Team Description 03/09/2011 Office Visit [facility] Vanda Guerrero vaginosis (Primary Dx); Pino Toribio MD Vaginal candidiasis; [address] [employer] [address] [place] [address] Migraine headaches; [place] [phone] [facility] Need for prophylactic vaccination and in oculation against influenza [phone] [place] [id number] (Wo rk) Social History [...] How often do you attend temple or amish Patient refused 08/08/2019 services? Do [...] Sign Reading Time Taken Comments Blood Pressure 100/50 03/09/2011 10:06 AM CDT Pulse 62 03/09/2011 10:06 AM CDT Temperature 36.6 ??C (97.9 ??F) 03/09/2011 10:06 AM CDT Respiratory Rate - - Oxygen Saturation - - Inhaled Oxygen Concentration - - Weight 73.5 kg (162 lb) 03/09/2011 10:06 AM CDT Height - - Body Mass Index 29.63 08/26/2010 2:29 PM CDT documented in this encounter Progress Notes Vanda Guerrero MD - 03/09/2011 10:19 AM CDT SUBJECTIVE: 45 year old female complains of white vaginal discharge for 2 months. Denies abnormal vaginal bleeding or significant pelvic pain or fever. No UTI symptoms. Denies history of known exposure to STD. Denies dyspareunia. No abdominal pain. No urinary symptoms Treated with a course of miconazole x 7 days without improvement. Migraines are much improved after quitting her job and starting to take care of her grandchildren timekeeper. She usually follows with Dr Howard for migraines and has been weaning herself off of topamax. Patient's last menstrual period was 02/03/2011. OBJECTIVE: She appears well, afebrile. Neuro: a&ox3, CN intact and symmetric, normal gait and coordination Wet prep results: + yeast, + clue cells Assessment/Plan: 616.10BA Bacterial vaginosis (primary encounter diagnosis) Plan: Wet prep, MetroNIDazole (METROGEL) 0.75 % vaginal gel 112.1N Vaginal candidiasis Plan: Wet prep, fluconazole (DIFLUCAN) 150 MG tablet 346.90G Migraine headaches Comment: improved, followed by neuro, tapering down topamax Plan: HIT-6 (Headache Impact Test), MIGRAINE ACTION PLAN V04.81 Need for prophylactic vaccination and inoculation against influenza Plan: FLU VACCINE, 3 YRS +, IM Patient overdue for diabetes labs - she is to make an appt with Selma Mccoy for diabetes follow up with fasting labs. Return to clinic if symptoms worsen or do not resolve as expected. Pt voiced understanding. New medication indication, adverse effects, risks, and benefits discussed. Vanda Guerrero MD Internal Medicine - Pediatrics documented in this encounter Nursing Notes 03/09/2011 10:00 AM CDT >> ADALBERTO VILLAFANA [facility] Mar 09, 2011 10:14 AM Patient presents with: Vaginal Problem - c/o vaginal itching and discharge x 2 mos,has tried OTC Monistat 7 day with previous relief Initial BP 100/50 Pulse 62 Temp(Src) 97.9 ??F (36.6 ??C) (Oral) Wt 162 lb (73.483 kg) LMP 02/03/2011 Estimated Body mass index is 29.63 kg/(m^2) as calculated from the following: Height as of 08/26/10: 5' 2(1.575 m). Weight as of this encounter: 162 lb(73.483 kg).. BP completed using cuff size: regular Injectable Influenza Immunization Documentation 1. Has the patient received the information for the injectable influenza vaccine? YES 2. Is the patient 6 months of age or older? YES 3. Does the patient have any of the following contraindications? Severe allergy to eggs? No Severe allergic reaction to previous influenza vaccines? No Allergy to contact lens solution/thimerosol? No History of Guillain-[place] syndrome? No Undergoing chemotherapy or radiation therapy? (vaccine should be given at least 2 weeks prior or 3 weeks after) No Currently have moderate or severe illness? No 4. The vaccine has been administered and the patient was instructed to wait 15 minutes before leaving the building in the event of an allergic reaction: YES Vaccination given by Adalberto Villafana LPN. documented in this encounter Plan of Treatment Not on filedocumented as of this encounter Procedures Procedure Name Priority Date/Time Associated Diagnosis Comme nts WET PREPARATION Routine 03/09/2011 10:04 AM Bacterial va ginosis Results for this CDT Vaginal candidiasis procedur e are in the results section. documented in this encounter Results Wet prep (03/09/2011 10:04 AM CDT) [facility] Method Time Signature Specimen Vagina [place] Description [facility] Wet Prep No Trichomonas seen [place]AT[place] Clue cells seen [facility] Yeast seen LAB Micro Report FINAL [place] Status 03/09/2011 [facility] Specimen Anatomical Collection Method Collection Time Receive d Time (Source) Location / / Volume Laterality 03/09/2011 10:04 03/09/2011 AM CDT 10:09 AM CDT Vanda Guerrero MD LAB - MICRO GENERAL ORDERABL ES Performing Organization Address City/State/ZIP Code Phon e Number [facility] [address] [place] [id number] [facility] documented in this encounter Visit Diagnoses Diagnosis Bacterial vaginosis - Primary Vaginitis and vulvovaginitis, unspecifie d Vaginal candidiasis Candidiasis of vulva and vagina Migraine headaches Migraine, unspecified, without mention o f intractable migraine without mention of status migrainosus Need for prophylactic vaccination and in oculation against influenza documented in this encounter Care Teams Dozer Operator Relationship Specialty Start Date End Date Danilo-Selma Mccoy, LABORER DRYING DEPARTMENT HOUSEKEEPING/LAUNDRY SUPERVISOR PCP - General 04/09/08 04/07/[address] [place] [address] documented as of this encounter
--- OUTSIDE RECORDS SUMMARY | 2022-01-17 22:17 | XMS_ITS | Encounter Summary ---
:1965 Author Organization [place] Address [address] [place] [address] Care Team Providers Name Role Phone Selma Good APRN [facility] Primary Care Provider [phone] Reason for Referral Referral not Required - Closed Specialty Diagnoses / Procedures Referred By Contact Refer red To Contact Diagnoses Pain in the foot Plantar fascial fibromatosis Rayo Whitehead DPM [facility] [address] [facility] [address] [place] [address] Referral ID Status Reason Start Date Expiration Date Visits Requ ested Visits Authorized [id number] Closed 12/31/2009 12/31/2009 1 1 Reason for Visit Reason Comments Musculoskeletal Problem right foot arch and heel valdo n. Encounter Details Date Type Department Care Team Description 12/31/2009 Office Visit [facility] Rayo Whitehead Pain in the Foot (Primary Dx); Pino Jacome DPM Plantar Fascial Fibromatosis [address] [place] [address] E [phone] [address] [place], [place] [address] Social History Tobacco Use Types [...] How often do you attend confucianist or hindu Patient refused 08/08/2019 services? Do you belong to any clubs or organizations such as No 08/08/2019 confucianist groups, [employer], [employer] or athletic groups, or school groups? How [...] Sign Reading Time Taken Comments Blood Pressure 118/70 12/31/2009 3:06 PM CDT Pulse 68 12/31/2009 3:06 PM CDT Temperature - - Respiratory Rate - - Oxygen Saturation - - Inhaled Oxygen Concentration - - Weight - - Height - - Body Mass Index - - documented in this encounter Progress Notes Rayo Whitehead - 01/09/2010 9:52 PM CDT Subjective: Patient is seen today as a new pt self referral with a several month hx of rt heel pain. Most painful upon rising in a.m. or after prolonged sitting. Admits to hx of minor injury. Has tried changing shoewear, OTC inserts, and NSAIDS without much success. PMH, meds, all, PSH, PFH, and soc hx were reviewed REVIEW OF SYSTEMS: CONSTITUTIONAL:NEGATIVE for fever, chills, change in weight INTEGUMENTARY/SKIN: NEGATIVE for worrisome rashes, moles or lesions MUSCULOSKELETAL:See HPI above NEURO: NEGATIVE for weakness, dizziness or paresthesias Objective: Pulses are palpable +2/4 DP & PT bilateral. Sensation to light touch is intact. Muscle strength and ROM is within normal limits. No sign of ulceration, infection, or drainage noted. Upon weightbearing there is a decrease in the medial longitudinal arch. Pain upon palpation to the medial slip of the plantar fascia and medial calcaneal tubercle rt. Assessment: Plantar Fasciitis rt Plan: Discussed etiology and treatment options with the patient. Recommended modifying activities, supportive shoes, ice, stretching, and not going barefoot. Recommended PT w/ iontophoresis and consider injection in the future. documented in this encounter Nursing Notes 12/31/2009 3:00 PM CDT >> LIANA BLACK SunDec 31, 2009 3:07 PM Patient presents with: Musculoskeletal Problem - right foot arch and heel pain. Initial BP 118/70 Pulse 68 Estimated Body mass index is 37.93 kg/(m^2) as calculated from the following: Height as of 07/12/09: 5' 2(1.575 m). Weight as of 12/15/09: 207 lb 6 oz(94.065 kg). bp completed using cuff size: large right Liana Roelchris, COUPON AND BOND COLLECTION CLERK documented in this encounter Plan of Treatment Scheduled Orders Name Type Priority Associated Diagnoses Order S chedule XR Foot Right G/E 3 Views Imaging Or dered: 09/18/2012 documented as of this encounter Procedures Procedure Name Priority Date/Time Associated Diagnosis Comme [facility] Z RT X-RAY FOOT Routine 12/31/2009 3:13 PM Pain in the foot Results for this 3+ VW CDT procedure are i n the results section. documented in this encounter Results RT X-RAY FOOT 3+ VW (12/31/2009 3:13 PM CDT) Anatomical Region Laterality Modality Other Specimen (Source) Anatomical Collection Method Collection Time Re ceived Time Location / / Volume Laterality 12/31/2009 3:13 PM CDT Impressions 12/31/2009 3:55 PM CDT FOOT G/E 3 VIEWS RIGHT* Dec 31, 2009 3:1 3:00 PM HISTORY: Pain. FINDINGS: Accessory ossicle adjacent to tarsal navicular. There is some associated degenerative change at t his site. Exam otherwise negative. Rayo Whitehead DPM [facility] documented in this encounter Visit Diagnoses Diagnosis Pain in the foot - Primary Pain in limb Plantar fascial fibromatosis documented in this encounter Care Teams Adzing And Boring Machine Helper Relationship Specialty Start Date End Date Danilo-Selma Mccoy, HAND BOOTMAKER SOLAR ENERGY ADVISOR PCP - General 04/09/08 04/07/15 [address] [facility] [place] [address] documented as of this encounter
--- OUTSIDE RECORDS SUMMARY | 2022-01-17 22:17 | XMS_ITS | Encounter Summary ---
:1965 Author Organization [place] Address [address] [place] [address] Care Team Providers Name Role Phone Selma Good APRN, CNP Primary Care Provider [phone] Reason for Visit Reason Onset Date Comments Refill Request 10/14/2010 change Omeprazole Rx to mail order pharmacy Encounter Details Date Type Department Care Team Description 10/14/[address] [facility] Eag Selma Anthony Refill Request ([facility] [place] CNP Omeprazole Rx to mail [place] [phone] [place] [address] pharmacy) [phone] [facility] [place] [phone] (Wo rk) Social History Tobacco Use Types [...] How often do you attend restorationist or anabaptism Patient refused 08/08/2019 services? Do [...] encounter Miscellaneous Notes Telephone Encounter - Liya Winchester - 10/14/2010 9:28 AM CDT Requesting Rx sent to [facility] mail order pharmacy instead of [facility]. Rx faxed to [facility]. Thea Winchester RN documented in this encounter Plan of Treatment Not on filedocumented as of this encounter Visit Diagnoses Diagnosis GERD (gastroesophageal reflux disease) - Primary Esophageal reflux documented in this encounter Care Teams Pathologist Relationship Specialty Start Date End Date Danilo-Selma Mccoy APRN [facility] PCP - General 10/30/08 10/28/[address] [facility] [place] [address] documented as of this encounter
--- OUTSIDE RECORDS SUMMARY | 2022-01-17 22:17 | XMS_ITS | Encounter Summary ---
:1965 Author Organization [place] Address [address] [place] [address] Care Team Providers Name Role Phone Selma Good APRN [facility] Primary Care Provider Reason for Visit [facility] Physical Therapy (Routine) - Closed Specialty Diagnoses / Procedures Referred By Contact Refer red To Contact Kylah Howard MD [facility] [address] [facility] [address] [place] [address] Referral ID Status Reason Start Date Expiration Date Visits Requ ested Visits Authorized HP - NECK Closed 11/15/2009 06/10/2010 8 8 Encounter Details Date Type Department Care Team Description 12/28/2009 Therapy Visit [place] for Vadim Banda P Pietro Cervical Pain Athletic Medicine - Rehab Services (Prima ry Dx) [facility] [address] [place] [address] [place] [address] [place] [address] [phone] Social History Tobacco Use Types Packs/Day Years [...] often do you attend roman catholic or rastafari Patient refused 08/08/2019 services? Do you belong to any clubs or organizations such as No 08/08/2019 roman catholic groups, Brammos, fraternal or athletic groups, or school groups? [...] documented as of this encounter Progress Notes Vadim Banda - 12/28/2009 4:03 PM CDT Subjective: HPI Objective: System Physical Exam General ROS Assessment/Plan: DISCHARGE REPORT Progress reporting period is from 11/24/09 to 12/28/09. SUBJECTIVE Subjective changes noted by patient: Patient reports that she is still having quite a bit of pain. Headaches are still there quite a bit but upper back soreness is a lot better. Current pain level is 6/10 . Changes in function: Yes (See Goal flowsheet attached for changes in current functional level) Adverse reaction to treatment or activity: None OBJECTIVE Changes noted in objective findings: Yes, Minimal cervical muscle tension through upper trap, levator, rhomboids, and SO. Mid trap 4+/5 bilaterally. RHomboids 5/5 bilaterally. ASSESSMENT/PLAN Updated problem list and treatment plan: Diagnosis 1: Cervical myofascial pain Pain - hot/cold therapy, US, mechanical traction and manual therapy Decreased joint mobility - manual therapy and therapeutic exercise Decreased strength - therapeutic exercise and therapeutic activities Decreased function - therapeutic activities STG/LTGs have been met or progress has been made towards goals: Yes (See Goal flow sheet completed today.) Assessment of Progress: The patient's condition is improving slowly. The patient's progress has slowed. Self Management Plans: Patient has been instructed in a home treatment program. Patient is independent in a home treatment program. Patient has been instructed in self management of symptoms. Megan continues to require the following intervention to meet STG and LTG's: PT Recommendations: This patient is ready to be discharged from therapy and continue their home treatment program. Please refer to the daily flowsheet for treatment today, total treatment time and time spent performing 1:1 timed codes. documented in this encounter Plan of Treatment Not on filedocumented as of this encounter Procedures Procedure Name Priority Date/Time Associated Diagnosis Comme nts ZC MANUAL THER Routine 12/28/2009 4:45 PM CDT Cervical Pain TECH,1+REGIONS,EA 15 MIN documented in this encounter Visit Diagnoses Diagnosis Cervical pain - Primary Cervicalgia documented in this encounter Care Teams Corporate Travel Manager Relationship Specialty Start Date End Date Danilo-Selma Mccoy, FARM PLANNER CRECHE ATTENDANT PCP - General 04/09/08 04/07/15 [address] [facility] [address] [place], [place] [address] documented as of this encounter
--- OUTSIDE RECORDS SUMMARY | 2022-01-17 22:17 | XMS_ITS | Encounter Summary ---
:1965 Author Organization [place] Address [address] [place] [address] Care Team Providers Name Role Phone Selma Good APRN PROTOTYPE MACHINE OPERATOR Primary Care Provider [phone] Encounter Details Date Type Department Care Team Description 08/03/2010 Orders Only [facility] Eag an Type 2 diabetes, HbA1C 1440 [...] Associated Diagnosis Comme nts HEMOGLOBIN A1C Routine 08/03/2010 9:25 AM Type 2 diabetes, Res ults for this REGISTERED DIETITIAN HbA1C goal < 7% (H) procedur e are in the results section . documented in this encounter Results Hemoglobin A1c (08/03/2010 9:25 AM REGISTERED DIETITIAN) athologist Signature Hemoglobin A1C 6.0 4.3 - 6.0 [facility] Specimen Anatomical Collection Method Collection Time Receive d Time (Source) Location / / Volume Laterality Blood specimen 08/03/2010 9:25 AM 011 9:30 (specimen) REGISTERED DIETITIAN AM REGISTERED DIETITIAN Selma Good APRN PROTOTYPE MACHINE OPERATOR LAB - BLOOD ORDERABLES Performing Organization Address City/State/ZIP Code Phon e Number [facility] [place] [address] [place] [address] [facility] documented in this encounter Visit Diagnoses Diagnosis Type 2 diabetes, HbA1c goal < 7% (H) - P rimary Type II or unspecified type diabetes sukhdev litus without mention of complication, not stated as uncontrolled documented in this encounter Care Teams Poising Inspector Relationship Specialty Start Date End Date Selma Good APRN PROTOTYPE MACHINE OPERATOR PCP - General 04/09/08 04/07/15 [address] [facility] [place] [address] documented as of this encounter
--- OUTSIDE RECORDS SUMMARY | 2022-01-17 22:17 | XMS_ITS | Encounter Summary ---
:1965 Author Organization [place] Address [address] [place] [address] Care Team Providers Name Role Phone Selma Good APRN COMMISSIONS ANALYST Primary Care Provider [phone] Reason for Visit Reason Comments Diabetes Education Encounter Details Date Type Department Care Team Description 01/26/2010 Office Visit [facility] Arianna Caldwell Prediabetes (Primary Dx); XX RESIGNED XX DM w/o Complication Type II, [place] [address] (Wo rk) Social History Tobacco Use Types [...] often do you attend jehovah's witness or taoism Patient refused 08/08/2019 services? Do [...] Reading Time Taken Comments Blood Pressure 122/78 01/26/2010 4:05 PM CDT Pulse - - Temperature - - Respiratory Rate - - Oxygen Saturation - - Inhaled Oxygen Concentration - - Weight 92 kg (202 lb 14.4 oz) 01/26/2010 4:05 PM CDT Height - - Body Mass Index 37.11 07/12/2009 4:06 PM FORESTRY SCIENTIST documented in this encounter Patient Instructions Patient InstructionsArianna Caldwell - 01/26/2010 5:04 PM CDT MY DIABETES TODAY: 1) Goal A1C is under 7.0 Mine is: A1C 6.4 01/19/2010 2) Goal LDL (bad cholesterol) under 100 (measured at least yearly)- I am currently at: LDL 123 10/24/2008 3) Goal blood pressure under 130/80- mine was 122/78 today 4) Take aspirin daily yes 5) No tobacco use ACTION PLAN CHANGES FROM TODAY: Care Plan changes: Eat on 3 carb servings at each meal or 45 grams at each meal. Test blood 3 times a day Ochoa out food log and mail it back Sign up for classes Go to the gym 3 times a week Sun, Sun. 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 Patient concerns: is concerned about how to take care of it. Both Grandparents, both parents and allof her siblings have Diabetes. LAB RESULTS: Glucose monitoring results: Just received meter today. A1C 6.4 01/19/2010 HDL 34 10/24/2008 LDL 123 10/24/2008 GLC 149 01/12/2010 VITALS: BP 122/78 Wt 202 lb 14.4 oz (92.035 kg) History Tobacco Use Never Today's Blood Glucose result is 113 on Roxana meter. Medications reviewed & updated today. EXERCISE: no regular exercise program But just joined a gym and want to go M,W,F every week NUTRITION: Patient currently eats 3 meals 2 snacks per day and CHO choices- 2 BF, 3-4 Lunch, 4-5 Dinner, 1 Snack SOCIO/ECONOMIC HISTORY: Lives with: spouse, daughter and 2 grandchildren Recent family changes/social stressors: She said she was under a lot of stress but didn't seem to want to talk about it. Family Medical History: No changes since last visit Language(s) spoken at home: Setswana ROS: Patient experiencing the following diabetes related symptoms: fatigue ASSESSMENT: DIABETES: Control good A1C 6.4 01/19/2010 HTN: Control good Last BP: 122/78 HYPERCHOLESTEROLEMIA: Control fair LDL 123 10/24/2008 PLAN: Eat on 3 carb servings at each meal or 45 grams at each meal. Ochoa out food log and mail it back Sign up for classes Exercise / activity encouraged;Go to the gym 3 times a week Sun, Sun. And Sunday Eye exam by Ophthalmology recommended Home glucose monitoring encouraged... 3 times daily Information on diabetes given to the patient FOLLOW-UP: Follow up as needed, Note forward to PCP and Patient to schedule class Patient-stated goal written and given to patient. Continue SBGM 3 times a day for 1 week Behavioral goal established with patient Time spent with patient at today's visit was 60 minutes. documented in this encounter Plan of Treatment Not on filedocumented as of this encounter Visit Diagnoses Diagnosis Prediabetes - Primary Other abnormal glucose Type II or unspecified type diabetes sukhdev litus without mention of complication, uncontrolled documented in this encounter Care Teams Die Sinker Relationship Specialty Start Date End Date Danilo-Selma Mccoy, LIVERY CAR DRIVER COMMISSIONS ANALYST PCP - General 04/09/08 04/07/15 [address] [facility] [place] [address] documented as of this encounter
--- OUTSIDE RECORDS SUMMARY | 2022-01-17 22:17 | XMS_ITS | Encounter Summary ---
:1965 Author Organization [facility] Address [address] [place] [address]. [place] [address] Care Team Providers Name Role Phone Selma Good APRN WEIGHT RECORDER Primary Care Provider [phone] Encounter Details Date Type Department Care Team Description 07/16/2010 Historic Results [facility] Kylah Howard, [address] [place] [address] [address] [place], [place] [address] NEUROLOGY [phone] [address] [facility] [address] [place], [place] [address] (Wo rk) Social History [...] How often do you attend tenriism or buddhism Patient refused 08/08/2019 services? Do you belong to any clubs or organizations such as No 08/08/2019 tenriism groups, unions, fraternal or athletic groups, or [...] Name Priority Date/Time Associated Diagnosis Comme nts ELECTROLYTE PANEL Routine 07/16/2010 11:00 AM Res ults for this TEACHER HEARING IMPAIRED procedure are i n the results section. documented in this encounter Results (ABNORMAL) Electrolyte panel (07/16/2010 11:00 AM TEACHER HEARING IMPAIRED) P athologist Signature Sodium 145 (H) 133 - 144 [place] mmol/L Potassium 4.0 3.4 - 5.3 [place] mmol/L Chloride 108 94 - 109 [place] mmol/L Carbon Dioxide 28 20 - 32 [place] mmol/L Anion Gap 9 6 - 17 [place] mmol/L Specimen Anatomical Collection Method Collection Time Receive d Time (Source) Location / / Volume Laterality 07/16/2010 11:00 07/16/2010 AM TEACHER HEARING IMPAIRED 10:57 AM TEACHER HEARING IMPAIRED Kylah Howard MD LAB - BLOOD ORDERABLES Performing Organization Address City/State/ZIP Code Phon e Number [place] documented in this encounter Visit Diagnoses Not on filedocumented in this encounter Care Teams Nat Instructor Relationship Specialty Start Date End Date Selma Good APRN WEIGHT RECORDER PCP - General 04/09/08 04/07/[address] [place] [address] documented as of this encounter
--- OUTSIDE RECORDS SUMMARY | 2022-01-17 22:17 | XMS_ITS | Encounter Summary ---
:1965 Author Organization [facility] Address [address] [place] [address] Care Team Providers Name Role Phone Selma Good APRN FRUIT OR NUT FARMER Primary Care Provider [phone] Reason for Visit [facility] Physical Therapy (Routine) - Closed Specialty Diagnoses / Procedures Referred By Contact Refer red To Contact Rayo Whitehead, MARÍA [facility] [address] [facility] [address] [place] [address] Referral ID Status Reason Start Date Expiration Date Visits Requ ested Visits Authorized HP - FOOT Closed 01/03/2010 06/10/2010 12 10 Encounter Details Date Type Department Care Team Description 01/27/2010 Therapy Visit [place] for Graciela Dupree, PT Other Peripheral Athletic Medicine - [address] Enthesopathies (Primary [place] Physical [place] [address] Dx) Therapy [phone] [address] (Work) [place] [address] Social History Tobacco Use Types Packs/Day Years [...] How often do you attend sabianist or pentecostalism Patient refused 08/08/2019 services? Do you belong to any clubs or organizations such as No 08/08/2019 sabianist groups, [employer], [employer] or athletic groups, or school groups? How [...] Procedure Name Priority Date/Time Associated Diagnosis Comme [facility] ZZC THERAPEUTIC Routine 01/27/2010 4:19 PM Other Peripheral EXERCISES CDT Enthesopathies Z ELECTRIC CURRENT Routine 01/27/2010 4:19 PM Other Peripher al THERAPY CDT Enthesopathies [facility] MANUAL THER Routine 01/27/2010 4:19 PM Other Peripheral TECH,1+REGIONS,EA 15 CDT Enthesopathies MIN documented in this encounter Visit Diagnoses Diagnosis Other peripheral enthesopathies - Primar y documented in this encounter Care Teams Bench Molder Relationship Specialty Start Date End Date Selma Good, BAKERY TEAM LEADER FRUIT OR NUT FARMER PCP - General 04/09/08 04/07/[address] [place] [address] documented as of this encounter
--- OUTSIDE RECORDS SUMMARY | 2022-01-17 22:17 | XMS_ITS | Encounter Summary ---
:1965 Author Organization [facility] Address [address] [place] [address] Care Team Providers Name Role Phone Selma Good APRN MACHINE HOSE CUTTER Primary Care Provider [phone] Encounter Details Date Type Department Care Team Description 04/02/2010 Orders Only [facility] Eag an Type 2 diabetes, HbA1C goal < 7% (H); [address] Hyperlipidemia LDL goal <100 ; [place] [phone] Hypertension goal BP (blood pressure) < 130/80; [phone] Unspecified epi lepsy without mention of intractable epilepsy Social History Tobacco Use Types Packs/Day Years [...] How often do you attend methodist or yazidism Patient refused 08/08/2019 services? Do [...] Associated Comments Diagnosis VITAMIN D DEFICIENCY Routine 04/02/2010 8:36 AM Unspecified R esults for this SCREENING CDT epilepsy without procedure a re in mention of the results intractable section. epilepsy ALBUMIN RANDOM URINE Routine 04/02/2010 8:36 AM Type 2 diabete s, Results for this QUANTITATIVE CDT HbA1C goal < 7% (H) procedure are in Hyperlipidemia LDL the resul ts goal <100 section. Hypertension goal BP (blood pressure) < 130/80 LIPID REFLEX TO DIRECT Routine 04/02/2010 8:16 AM Type 2 diabe shirley, Results for this LDL PANEL CDT HbA1C goal < 7% (H) procedure are in Hyperlipidemia LDL the resul ts goal <100 section. Hypertension goal BP (blood pressure) < 130/80 HEMOGLOBIN A1C Routine 04/02/2010 8:16 AM Type 2 diabetes, Res ults for this CDT HbA1C goal < 7% (H) procedure are in Hyperlipidemia LDL the resul ts goal <100 section. Hypertension goal BP (blood pressure) < 130/80 COMPREHENSIVE Routine 04/02/2010 8:16 AM Type 2 diabetes, Resu lts for this METABOLIC PANEL CDT HbA1C goal < 7% (H) procedure are in Hyperlipidemia LDL the resul ts goal <100 section. Hypertension goal BP (blood pressure) < 130/80 documented in this encounter Results MICROALBUMIN (INC URINE CREAT) (04/02/2010 8:36 AM CDT) P athologist Signature Creatinine 207 mg/dL [facility] Urine [facility] Albumin Urine 11 mg/L [facility] mg/L [facility] Albumin Urine 5.31 0 - 20 [facility] mg/g Cr mg/g Cr [facility] Specimen Anatomical Collection Method Collection Time Receive d Time (Source) Location / / Volume Laterality Urine specimen 04/02/2010 8:36 AM 010 8:41 (specimen) CDT AM CDT Selma Good APRN MACHINE HOSE CUTTER LAB - URINE ORDERABLES Performing Organization Address City/State/ZIP Code Phon e Number [facility] [address] [place] [address] [facility] (ABNORMAL) Vitamin D deficiency screening (04/02/2010 8:36 AM CDT) Component Value Ref Test Analysis Performed At Patholo gist Range Method Time Signature 25 [place] Vit D2 <5 ug/L [facility] 25 [place] Vit D3 25 ug/L [facility] 25 [place] Vit D <30 30 - 75 [facility] total Season, race, dietary intake, and treatm ent affect the concentration of ug/L [place] 06-upguutr-Mjkibfd D. Values may decrease during gordon er months and increase [facility]AMP[facility] during summer months. Values less than 30 ug/L may indicate Vitamin D deficiency. (L) Specimen Anatomical Collection Method Collection Time Receive d Time (Source) Location / / Volume Laterality Blood specimen 04/02/2010 8:36 AM 010 8:41 (specimen) CDT AM CDT Narrative This result has an attachment that is no t available. Jayesh George MD LAB - BLOOD ORDERABLES Performing Organization Address City/State/ZIP Code Phon e Number [facility] [address] [place] [address] [facility] (ABNORMAL) Comprehensive metabolic panel (04/02/2010 8:16 AM CDT) P athologist Signature Sodium 143 133 - 144 [place] mmol/L [facility] Potassium 4.3 3.4 - 5.3 [place] mmol/L [facility] Chloride 105 94 - 109 [place] mmol/L [facility] Carbon Dioxide 27 20 - 32 [place] mmol/L [facility] Anion Gap 10 6 - 17 [place] mmol/L [facility] Glucose 134 (H) 60 - 99 [place] mg/dL [facility] Urea Nitrogen 10 5 - 24 [place] mg/dL [facility] Creatinine 0.74 0.52 - [place] 1.04 mg/dL [facility] Comment: New IDMS-traceable calibration beginning 10/10/07 GFR Estimate 84 >60 mL/min/1.7m2 [facility] GFR Estimate If Black >90 >60 mL/min/1.7m2 [facility] Calcium 9.2 8.5 - 10.4 mg/dL [facility] Bilirubin Total 0.5 0.2 - 1.3 mg/dL [facility] Albumin 4.1 3.9 - 5.1 g/dL [facility] Comment: Reference range changed on 02/10. Protein Total 7.2 6.8 - 8.8 g/dL [facility] Comment: As of 07, reference range reflects plasma specimen type. Alkaline Phosphatase 119 40 - 150 U/L [facility] ALT 22 0 - 50 U/L [facility] LAB AST 20 0 - 45 U/L [facility] LAB Specimen Anatomical Collection Method Collection Time Receive d Time (Source) Location / / Volume Laterality Blood specimen 04/02/2010 8:16 AM 010 8:21 (specimen) CDT AM CDT Selma Good APRN MACHINE HOSE CUTTER LAB - BLOOD ORDERABLES Performing Organization Address City/State/ZIP Code Phon e Number [facility] [address] [place] [address] [facility] (ABNORMAL) Lipid panel reflex to direct LDL (04/02/2010 8:16 AM CDT) athologist Signature Cholesterol 130 0 - 200 [facility] mg/dL CLINIC LAB Comment: LDL Cholesterol is the primary guide to therapy. The NCEP recommends further evaluation of: patients with cholesterol <200 mg/dL if additional risk factors are present, cholesterol >240 mg/dL, triglycerides >150 mg/dL, or HDL <40 mg/dL. Triglycerides 74 0 - 150 mg/dL [facility] HDL Cholesterol 37 (L) 50 - 110 mg/dL [facility] LDL Cholesterol Calculated 78 0 - 129 mg/dL [facility] Comment: LDL Cholesterol is the primary guide to therapy: LDL-cholesterol goal in high risk patients is <100 mg/dL and in very high risk patients is <70 mg/dL. VLDL-Cholesterol 15 0 - 30 mg/dL [facility] Cholesterol/HDL Ratio 3.5 0.0 - 5.0 [facility] Specimen Anatomical Collection Method Collection Time Receive d Time (Source) Location / / Volume Laterality Blood specimen 04/02/2010 8:16 AM 8:21 (specimen) CDT AM CDT Selma Good APRN, CNP LAB - BLOOD ORDERABLES Performing Organization Address City/[facility]/ZIP Code Phon e Number [facility] [address] [place] [address] [phone] [facility] LAB (ABNORMAL) Hemoglobin A1c (04/02/2010 8:16 AM CDT) athologist Signature Hemoglobin A1C 6.7 (H) 4.3 - 6.0 [facility] Specimen Anatomical Collection Method Collection Time Receive d Time (Source) Location / / Volume Laterality Blood specimen 04/02/2010 8:16 AM 8:21 (specimen) CDT AM CDT Selma Good APRN, CNP LAB - BLOOD ORDERABLES Performing Organization Address City/[facility]/ZIP Code Phon e Number [facility] [address] [place] [address] [facility] documented in this encounter Visit Diagnoses Diagnosis Type 2 diabetes, HbA1c goal < 7% (H) Type II or unspecified type diabetes sukhdev litus without mention of complication, not stated as uncontrolled Hyperlipidemia LDL goal <100 Other and unspecified hyperlipidemia Hypertension goal BP (blood pressure) < 130/80 Unspecified essential hypertension Unspecified epilepsy without mention of intractable epilepsy documented in this encounter Care Teams Traveling Operator Relationship Specialty Start Date End Date Danilo-Selma Mccoy, REAL ESTATE ASSOCIATE ATTORNEY MACHINE HOSE CUTTER PCP - General 04/09/08 04/07/15 [address] [facility] [address] [place], [place] [address] documented as of this encounter
--- OUTSIDE RECORDS SUMMARY | 2022-01-17 22:17 | XMS_ITS | Encounter Summary ---
:1965 Author Organization [facility] Address [address] [place] [address] Care Team Providers Name Role Phone Selma Good APRN ASPHALT DAUBER Primary Care Provider [phone] Reason for Visit [facility] Physical Therapy (Routine) - Closed Specialty Diagnoses / Procedures Referred By Contact Refer red To Contact Rayo Whitehead, MARÍA [facility] [address] [facility] [address] [place] [address] Referral ID Status Reason Start Date Expiration Date Visits Requ ested Visits Authorized HP - FOOT Closed 01/03/2010 06/10/2010 12 10 Encounter Details Date Type Department Care Team Description 01/14/2010 Therapy Visit [place] for Graciela Dupree, PT Other Peripheral Athletic Medicine - [address] Enthesopathies (Primary [place] Physical [place] [address] Dx) Therapy [phone] [address] (Work) [place] [address] Social History Tobacco Use Types Packs/Day Years [...] 08/08/2019 relatives? How often do you attend jain or restoration Patient refused 08/08/2019 services? Do you belong to any clubs or organizations such as No 08/08/2019 jain groups, [employer], [employer] or athletic groups, or school groups? How [...] documented as of this encounter Progress Notes Kirsten Taylor - 01/17/2010 7:39 AM CDT Subjective: Pertinent medical history includes: History of fractures, overweight and migraines. Medical allergies: yes. Other surgeries include: Orthopedic surgery. Current medications: Other. Patient is working in normal job with restrictions. Primary job tasks include: Prolonged sitting and repetitive tasks. Barriers include: Stairs and bathroom/bedroom on second floor. Red flags: Severe headaches and calf pain, swelling, warmth. Objective: System Physical Exam General ROS Assessment/Plan: Graciela Dupree - 01/14/2010 5:01 PM CDT Subjective: Megan Choi is a 44 year old female with a right foot condition. Condition occurred with: Repetition/overuse. Condition occurred: for unknown reasons. This is a chronic condition Insidious onsetof right heel pain in Feb 2009 after twisting her foot with walking. Pain has gotten worse with time despite Ibuprofren, ice and elevation. Chief complaint is of constant right heel and arch pain. Pain gets worse with walking and standing. It gets stiff and more painful after being immobile. She alsohas some coldness and a tingling in the leg. She is wearing shoes indoors now.. Pain is described as aching and sharp and is constant Pain Scale: 4/10 at rest, with activity 10/10. Associated symptoms: Tingling. Pain is worse during the day and worse in the A.M.. Symptoms are exacerbated by standing and walking and relieved by rest, ice and NSAID's. Since onset symptoms are gradually worsening. Special tests: X-ray (small posterior calcaneal spur). Objective: Standing Alignment: Ankle/Foot: Pes planus R Ankle/Foot Evaluation ROM: AROM: Dorsiflexion: Left: 5 Right: 0 PROM: Great Toe Extension: Left: 80 Right: 65 Strength: Anterior Tibialis:Left: 4+/5 Pain: Right: 5-/5 Pain: Posterior Tibialis: Left: 5/5 Pain: Right: 4+/5 Pain: Peroneals: Left: 4/5 Pain: Right: 5/5 Pain: Extensor Digitorum: Left: 5/5 Pain:Right: 5/5 Pain: PALPATION: Right ankle tenderness present at: plantar fascia and medial calcaneal EDEMA: normal General ROS Assessment/Plan: Patient is a 44 year old female with right ankle complaints. Patient has the following significant findings with corresponding treatment plan. Diagnosis 1: Right plantar fascitis Pain - iontophoresis Decreased ROM/flexibility - manual therapy and therapeutic exercise Decreased strength - therapeutic exercise and therapeutic activities Decreased function - therapeutic activities Previous and current functional limitations: (See Goal Flow Sheet for this information) Short term and ocean transportation intermediary goals: (See Goal Flow Sheet for this [...] Rehab potential is good. Frequency: 2 X week Duration: for 4-6 weeks Discharge Plan: Achieve all LTG. Independent in home treatment program. Reach maximal therapeutic benefit. Please refer to the daily flowsheet for treatment today, total treatment time and time spent performing 1:1 timed codes. documented in this encounter Plan of Treatment Not on filedocumented as of this encounter Procedures Procedure Name Priority Date/Time Associated Diagnosis Comme nts C THERAPEUTIC Routine 01/14/2010 6:23 PM Other Peripheral EXERCISES CDT Enthesopathies Z ELECTRIC CURRENT Routine 01/14/2010 6:23 PM Other Peripher al THERAPY CDT Enthesopathies documented in this encounter Visit Diagnoses Diagnosis Other peripheral enthesopathies - Primar y documented in this encounter Care Teams Dye Weigher Relationship Specialty Start Date End Date Selma Good APRN ASPHALT DAUBER PCP - General 04/09/08 04/07/15 [address] [facility] [place] [address] documented as of this encounter
--- OUTSIDE RECORDS SUMMARY | 2022-01-17 22:17 | XMS_ITS | Encounter Summary ---
:1965 Author Organization [facility] Address formerly [facility] [place] [address] Care Team Providers Name Role Phone Selma Good APRN INFORMATION TECHNOLOGY PROJECT MANAGER Primary Care Provider [phone] Encounter Details Date Type Department Care Team Description 03/13/2010 Consultation [facility] Lianna Devries MD Results [address] [place] [address] (Wo rk) Social History Tobacco Use Types [...] How often do you attend christian or moravian Patient refused 08/08/2019 services? Do [...] on file documented as of this encounter Procedure Notes Sriram Sosa - 03/21/2010 12:27 PM CDTAssociated Order(s): POLYSOMNOGRAPHY, 4 OR MORE FINAL NOCTURNAL POLYSOMNOGRAM INDICATIONS FOR POLYSOMNOGRAPHY: Snoring, excessive daytime somnolence and insomnia. DIAGNOSTIC POLYSOMNOGRAPHY: Diagnostic polysomnography was performed in the usual fashion. SLEEP ARCHITECTURE: Out of the total amount of monitoring equal to 516 minutes, the total sleep time obtained was 426.5minutes. The initial sleep latency was normal at 18.5 minutes. The REM sleep latency was also normalat 100.5 minutes. Sleep efficiency was moderate at 82.7%. Sleep architecture was remarkable for reduced slow wave sleep with frequent sleep state changes/arousals with an overall arousal index equal to29 per hour. The majority of the arousals were breathing related. RESPIRATORY EVENTS: Snoring was reportedly moderate to loud in intensity. The disordered breathing events were mainly obstructive hypopneas(90)and next significant events include respiratory effort-related arousals.There were some obstructive apneas(28), central apnea(1) mixed apnea(0). The overall apnea- hypopnea index was 16.7 per hour and the respiratory disturbance index was 26 per hour. Some of the respiratory effort related arousals were associated with O2 desaturations in the range of 3%. Thelowest oxyhemoglobin saturation was 83%. The disordered breathing events were predominant during REMsleep in supine position. LIMB MOVEMENTS: Occasional periodic limb movements were observed with an overall PLM index equal to 14.5 per hour, out of which 7.6 per hour were associated with arousals. EKG: There were no cardiac arrhythmias. CLINICAL INTERPRETATION: Moderate obstructive sleep apnea predominant during REM sleep in supine position: RECOMMENDATIONS: 1. Suggest pursuing an all-night CPAP titration study to establish the optimal pressure settings totreat the sleep disordered breathing. 2. PLMs of uncertain clinical significance. Empiric treatment with dopaminergic agents only if the patient has symptoms of RLS or for symptomatic periodic limb movement disorder. 3. Suggest optimizing sleep hygiene measures, including avoidance of alcohol and sedatives and avoiding sleep deprivation. 4. Suggest advising the patient to avoid driving if drowsy or sleepy to prevent accidents. 5. Weight management. DIAGNOSIS: 327.23, 327.51. Electronically signed on 03/22/2010 09:14 by SRIRAM SOSA MD MT: nr Name: PADMINI CHOI MRN: [id number] Account: [id number] : 1965 Visit Date: 03/13/2010 Document: [id number] documented in this encounter Plan of Treatment Not on filedocumented as of this encounter Procedures Procedure Name Priority Date/Time Associated Diagnosis Comme [facility] ZZC 03/21/2010 11:39 AM Results for this POLYSOMNOGRAPHY, 4 CDT procedure are in OR MORE the results section. documented in this encounter Results POLYSOMNOGRAPHY, 4 OR MORE (03/21/2010 11:39 AM CDT) Transcriptions Sriram Sosa - 03/21/2010 12:27 PM CDT FINAL NOCTURNAL POLYSOMNOGRAM INDICATIONS FOR POLYSOMNOGRAPHY: Snorin g, excessive daytime somnolence and insomnia. DIAGNOSTIC POLYSOMNOGRAPHY: Diagnostic polysomnography was performe d in the usual fashion. SLEEP ARCHITECTURE: Out of the total amount of monitoring e qual to 516 minutes, the total sleep time obtained was 426.5 minutes. The initial sleep latency was normal at 18.5 minutes. The REM sleep latency was also normal at 100.5 minutes. Sleep efficiency was moderate a t 82.7%. Sleep architecture was remarkable for reduced slow wave sleep with frequent sleep state changes/arousals with an overall arousal index equal to 29 per hour. The majority of the arousals were breathing related. RESPIRATORY EVENTS: Snoring was reporte dly moderate to loud in intensity. The disordered breathing events were mainly obstructive hypopneas(90)and next significant events include respiratory effort-related arousals.There were some obstructive apneas(28), centra l apnea(1) mixed apnea(0). The overall apnea-hypopnea index was 16.7 per hour and the respiratory disturbance index was 26 per hour. Some of the respiratory effort related arousals were associated with O2 desatur ations in the range of 3%. The lowest oxyhemoglobin saturation was 83%. The disordered breathing events were predominant during REM sleep in supine position. LIMB MOVEMENTS: Occasional periodic limb movements were observed with an overall PLM index equal to 14.5 per hour, out of which 7.6 per hour were associated with arousals. EKG: There were no cardiac arrhythmias. CLINICAL INTERPRETATION: Moderate obstructive sleep apnea predom inant during REM sleep in supine position: RECOMMENDATIONS: 1. Suggest pursuing an all-night CPAP t itration study to establish the optimal pressure settings to treat the sleep disordered breathing. 2. PLMs of uncertain clinical significance. Empiric treatment with dopaminergic agents only if the patient has symptoms of RLS or for symptomatic periodic limb movement disorder. 3. Suggest optimizing sleep hygiene measures, including avoidance of alcohol and sedatives and avoiding sleep deprivation. 4. Suggest advising the pat ient to avoid driving if drowsy or sleepy to prevent accidents. 5. Weight management. DIAGNOSIS: 327.23, 327.51. Electronically signed on 03/22/2010 09: 14 by SRIRAM SOSA MD MT: nr Name: PADMINI CHOI MRN: [id number] Account: [id number] : 1965 Visit Date: 03/13/2010 Document: [id number] Sriram Sosa MD PROCEDURES documented in this encounter Visit Diagnoses Not on filedocumented in this encounter Care Teams Head Gauge Unit Operator Relationship Specialty Start Date End Date aDnilo-Selma Mccoy, QUANTITATIVE MANAGER INFORMATION TECHNOLOGY PROJECT MANAGER PCP - General 04/09/08 04/07/15 [address] [facility] [place] [id number] documented as of this encounter
--- OUTSIDE RECORDS SUMMARY | 2022-01-17 22:17 | XMS_ITS | Encounter Summary ---
:1965 Author Organization [facility] Address [address] [place] [address] Care Team Providers Name Role Phone Selma Good APRN DIRECTOR OF NURSING Primary Care Provider [phone] Reason for Visit Reason Comments RECHECK cellulitis on left leg,state s doesnt notice any difference,c/o pain,dryness and burning sen sation Letter for School/Work Encounter Details Date Type Department Care Team Description 08/29/2010 Office Visit [facility] Vanda Guerrero Cellulit is of leg Pino Toribio MD (Primary Dx) [address] [place] [address] [facility] [phone] [place] [address] (Wo rk) Social History [...] How often do you attend shinto or anabaptist Patient refused 08/08/2019 services? Do [...] Reading Time Taken Comments Blood Pressure 110/68 08/29/2010 2:16 PM CDT Pulse 86 08/29/2010 2:16 PM CDT Temperature 36.8 ??C (98.3 ??F) 08/29/2010 2:16 PM CDT Respiratory Rate - - Oxygen Saturation - - Inhaled Oxygen Concentration - - Weight 81.2 kg (179 lb) 08/29/2010 2:16 PM CDT Height - - Body Mass Index 32.74 08/26/2010 2:29 PM CDT documented in this encounter Patient Instructions Patient Vanda Berry - 08/29/2010 2:37 PM CDT Cellulitis of leg - thanks for coming back for repeat evaluation - will add another antibiotic to cover more resistant bacteria for the next 10 days - keep taking the Augmentin - anticipate that this will take a couple weeks to improve - red portion circled today - call if extending outside of circled borders - note provided for work documented in this encounter Progress Notes Vanda Guerrero - 08/29/2010 2:25 PM CDT CC: cellulitis HPI: Megan Choi is a 45 year old year old female presenting for recheck of cellulitis. Seen in clinic by Adele Good 08/26 and given augmentin. Cellulitis started 19 days prior to initial evaluation - ? Started with bug bite. Pt has well controlled DM2. Since evaluation in clinic last week, has noticed no change in lower extremity cellulitis and is following instructions to come back for repeat evaluation. Continues to deny fevers, chills, myalgias. No increase in area of redness. Experiencing soreness and skin flaking at infection site. Patient Active Problem List Diagnoses Code ??? Migraine Headaches 346.90G ??? GERD (Gastroesophageal Reflux Disease) 530.81K ??? Obesity 278.00J ??? Family History of OR (Myocardial Infarction) V17.3Y ??? Cervical Pain 723.1L ??? Insomnia 780.52A ??? Upper Back Pain 724.1N ? ? Type 2 Diabetes, HbA1c Goal < 7% 250.00FV ? ? Hyperlipidemia LDL Goal <100 272.4CL ? ? Hypertension Goal BP (Blood Pressure) < 130/80 401.9BT Past Medical History Diagnosis Date ??? DVT femoral (deep venous thrombosis) 04/17 post surgical, stopped coumadin 01/16 Past Surgical History Procedure Date ??? C spinal fusion,ant,ea adnl level 2004 L5, S1, Repeated in 2005 ??? C spinal fusion,ant,ea adnl level 2006 SI joints ??? C spinal fusion,ant,ea adnl level 2000 C5-C7 fused Current outpatient prescriptions Medication Sig ??? AUGMENTIN XR 1000 MG Take 2 tablets by mouth 2 times daily for 10 days. ??? omeprazole (PRILOSEC) 20 MG capsule Take 1 capsule by mouth daily. ??? topiramate (TOPAMAX) 25 MG tablet Take 25 mg by mouth 2 times daily. 2 a day ??? simvastatin (ZOCOR) 20 MG tablet Take 1 tablet by mouth At Bedtime. ??? lisinopril (PRINIVIL,ZESTRIL) 20 MG tablet Take 1 tablet by mouth daily. ??? metformin (GLUCOPHAGE) 1000 MG tablet Take 1 tablet by mouth 2 times daily (with meals). ??? MetFORmin (GLUCOPHAGE) 500 MG tablet take 1 Tab by mouth 2 times daily (with meals). Take 1 tab PO BID x 1 wk, then 2 tabs BID x 1 wk ??? ACCU-CHEK JANICE STRP TEST 4 TIMES DAILY ??? ACCU-CHEK MULTICLIX LANCETS MISC TEST 4 TIMES DAILY ??? SAVELLA 50 MG PO TABS 1 TABLET TWICE DAILY ??? DEXAMETHASONE SODIUM PHOSPHATE 4 MG/ML IJ SOLN to use w/ iontophoresis ??? TRAMADOL HCL 50 MG PO TABS 1 TABLET EVERY 4 TO 6 HOURS NEEDED ??? ANTIVERT 25 MG OR TABS 1 TABLET 3 TIMES DAILY NEEDED ??? NEURONTIN 300 MG PO CAPS one in the am and 3 at night ??? ASPIRIN 81 MG OR TABS Allergies Allergen Reactions ??? Erythromycin History Substance Use Topics ??? Smoking status: Never Smoker ??? Smokeless tobacco: Never Used ??? Alcohol Use: Yes Rare BP 110/68 Pulse 86 Temp(Src) 98.3 ??F (36.8 ??C) (Oral) Wt 179 lb (81.194 kg) Exam: Gen: well appearing, no acute distress Ext/Skin: left lower extremity with 2.5cm diameter erythematous and indurated nodule. No increase insize from previous measure 08/26. Mild warmth to palpation. No fluctuance. No red streaks up leg. No left lower extremity swelling. ASSESSMENT: 682.6V Cellulitis of leg (primary encounter diagnosis) Comment: started on augmentin 08/26 with no improvement to date Plan: sulfamethoxazole-trimethoprim (BACTRIM DS) 800-160 MG per tablet No worsening on exam today. Area of infection has a look almost like erythema nodosum. Will add bactrim for improved MRSA coverage today and monitor. Involved area circled with marker - patient to monitor borders and call or return to clinic if redness exceeds these. Anticipate slow improvement. If doesn't resolve on antibiotics, would consider dermatology evaluation. Letter provided allowing patient to return to work. Discussed appropriate diabetic foot care. Return to clinic if symptoms worsen or do not resolve as expected. Pt voiced understanding. New medication indication, adverse effects, risks, and benefits discussed. Vanda Guerrero MD Internal Medicine - Pediatrics documented in this encounter Nursing Notes 08/29/2010 2:15 PM CDT >> ADALBERTO FULTON [facility] Aug 29, 2010 2:20 PM Patient presents with: RECHECK - cellulitis on left leg,states doesnt notice any difference,c/o pain,dryness and burning sensation Letter for School/Work Initial BP 110/68 Pulse 86 Temp(Src) 98.3 ??F (36.8 ??C) (Oral) Wt 179 lb (81.194 kg) Estimated Body mass index is 32.74 kg/(m^2) as calculated from the following: Height as of 11: 5' 2(1.575 m). Weight as of this encounter: 179 lb(81.194 kg).. BP completed using cuff size: regular documented in this encounter Plan of Treatment Not on filedocumented as of this encounter Visit Diagnoses Diagnosis Cellulitis of leg - Primary Cellulitis and abscess of leg, except fo ot documented in this encounter Care Teams Product Marketing Analyst Relationship Specialty Start Date End Date Selma Good, RN INVASIVE DIRECTOR OF NURSING PCP - General 04/09/08 04/07/15 [address] [facility] [address] [place], [place] [address] documented as of this encounter
--- OUTSIDE RECORDS SUMMARY | 2022-01-17 22:17 | XMS_ITS | Encounter Summary ---
:1965 Author Organization [facility] Address [address] [place] [address] Care Team Providers Name Role Phone Selma Good APRN ICE SELLER Primary Care Provider [phone] Reason for Visit [facility] Physical Therapy (Routine) - Closed Specialty Diagnoses / Procedures Referred By Contact Refer red To Contact Rayo Whitehead, [facility] [address] [facility] [address] [place] [address] Referral ID Status Reason Start Date Expiration Date Visits Requ ested Visits Authorized HP - FOOT Closed 01/03/2010 06/10/2010 12 10 Encounter Details Date Type Department Care Team Description 01/18/2010 Therapy Visit [place] for Graciela Dupree, PT Other Peripheral Athletic Medicine - [address] Enthesopathies (Primary [place] [facility] [place] [address] Dx) Therapy [phone] [address] (Work) [place] [address] Social History Tobacco Use Types Packs/Day Years [...] How often do you attend mosque or zoroastrian Patient refused 08/08/2019 services? Do you belong to any clubs or organizations such as No 08/08/2019 mosque groups, [employer], fra[employer]Mine or athletic groups, or school groups? How [...] Diagnosis Comme nts ZC MANUAL THER Routine 01/18/2010 4:54 PM Other Peripheral TECH,1+REGIONS,EA 15 CDT Enthesopathies MIN ZZC THERAPEUTIC Routine 01/18/2010 4:54 PM Other Peripheral EXERCISES CDT Enthesopathies ZZC ELECTRIC CURRENT Routine 01/18/2010 4:54 PM Other Peripher al THERAPY CDT Enthesopathies documented in this encounter Visit Diagnoses Diagnosis Other peripheral enthesopathies - Primar y documented in this encounter Care Teams Allergy And Immunology Specialist Relationship Specialty Start Date End Date Selma Good, JEWEL OLIVING MACHINE OPERATOR ICE SELLER PCP - General 04/09/08 04/07/[address] [facility] [address] [place], [place] [address] documented as of this encounter
--- OUTSIDE RECORDS SUMMARY | 2022-01-17 22:17 | XMS_ITS | Encounter Summary ---
:1965 Author Organization [facility] Address [address] [place] [address] Care Team Providers Name Role Phone Selma Good APRN LENS CEMENTER Primary Care Provider [phone] Reason for Visit [facility] Physical Therapy (Routine) - Closed Specialty Diagnoses / Procedures Referred By Contact Refer red To Contact Rayo Whitehead, [facility] [address] [place] [address] Referral ID Status Reason Start Date Expiration Date Visits Requ ested Visits Authorized HP - FOOT Closed 01/03/2010 06/10/2010 12 10 Encounter Details Date Type Department Care Team Description 02/02/2010 Therapy Visit [place] for [facility] Athletic Medicine - Sal Gonzales Enthesopathies (Primary [place] [facility] [address] Dx) Therapy [place] [address] [place] [address] [place] [address] [phone] Social History Tobacco Use Types Packs/Day Years [...] How often do you attend holiness or adventism Patient refused 08/08/2019 services? Do you belong to any clubs or organizations such as No 08/08/2019 holiness groups, [employer], fra[employer] or athletic groups, or school groups? How [...] Diagnosis Comme nts ZZC MANUAL THER Routine 02/02/2010 4:17 PM Other Peripheral TECH,1+REGIONS,EA 15 CDT Enthesopathies MIN ZZC ELECTRIC CURRENT Routine 02/02/2010 4:17 PM Other Peripher al THERAPY CDT Enthesopathies documented in this encounter Visit Diagnoses Diagnosis Other peripheral enthesopathies - Primar y documented in this encounter Care Teams Store Merchandiser Relationship Specialty Start Date End Date Selma Good, ETCHER APPRENTICE LENS CEMENTER PCP - General 04/09/08 04/07/[address] [facility] [place], [place] [address] documented as of this encounter
--- OUTSIDE RECORDS SUMMARY | 2022-01-17 22:17 | XMS_ITS | Encounter Summary ---
:1965 Author Organization [facility] Address [address] [place] [address] Care Team Providers Name Role Phone Selma Good APRN AIR QUALITY CHEMIST Primary Care Provider [phone] Reason for Visit Reason Comments RECHECK Pt is here for a f/u visit f or diabetes Encounter Details Date Type Department Care Team Description 02/15/2010 Office Visit [facility] Florentino, Type 2 Diab etes, HbA1c Goal < 7% (H) (Primary Dx); Pino Angeles APRN Hyperlipidemia LDL Goal <100 ; [address] [facility] Hypertension Goal BP (Blood Pressure) < 130/80 [place] [address] [facility] [phone] [facility] [place] [phone] Social History Tobacco Use Types Packs/Day Years [...] How often do you attend confucianism or zoroastrianism Patient refused 08/08/2019 services? Do [...] Sign Reading Time Taken Comments Blood Pressure 130/75 02/15/2010 5:00 PM CDT Pulse 80 02/15/2010 5:00 PM CDT Temperature - - Respiratory Rate - - Oxygen Saturation - - Inhaled Oxygen Concentration - - Weight 91.2 kg (201 lb) 02/15/2010 5:00 PM CDT Height - - Body Mass Index 36.76 07/12/2009 4:06 PM LENS ASSORTER documented in this encounter Patient Instructions Patient InstructionsSelma Good - 02/15/2010 5:35 PM CDT Start simvastatin daily for cholesterol. Schedule a lab only fasting appt in 6 wks to see where yourcholesterol is. Start metformin as it's prescribed. We will do a hgb A1C at the time of your fasting lab appt (in 6 wks) to see where it's at. Start lisinopril daily for blood pressure. Please call if you have any bothersome side effects. documented in this encounter Progress Notes Selma Good - 02/15/2010 5:07 PM CDT SUBJECTIVE: Megan Choi presents today for follow up of DIABETES MELLITUS. This is a new diagnosis for her and she is here to discuss this diagnosis. Diabetes runs strong in her family history. She did havea diabetes ed appt with yony Patient concerns: none Patient glucose self monitoring: once (1) daily. Blood glucose averages: 113-120 Symptoms of low blood sugar (hypoglycemia)? no Problems taking medications regularly? no Side effects? none What are you doing for exercise outside of work or your daily activities? Walk at the gym 3x a week Health maintenance updated? No PHQ-2 Over the last two weeks- Have you been bothered by little interest or pleasure in doing things? No Over the last two weeks- Have you been been feeling down, depressed, or hopeless? No BP: 128/82 BP Readings from Last 3 Encounters: 02/15/2010 130/75 01/26/2010 122/78 01/12/2010 116/78 A1C 6.4 01/19/2010 A1C 6.3 10/24/2008 Recent Labs Lab Test 10/24/08 0956 04/21/08 0801 ??? CHOL 183 190 ??? HDL 34* 34* ??? LDL 123 125 ??? TRIG 132 155* ??? CHOLHDLRATIO 5.4* 5.6* Wt Readings from Last 3 Encounters: 02/15/2010 201 lb (91.173 kg) 01/26/2010 202 lb 14.4 oz (92.035 kg) 01/12/2010 205 lb 7 oz (93.186 kg) Current outpatient prescriptions Medication Sig ??? simvastatin (ZOCOR) 20 MG tablet take 1 Tab by mouth At Bedtime. ??? lisinopril (PRINIVIL,ZESTRIL) 20 MG tablet take 1 Tab by mouth daily. ??? ACCU-CHEK JANICE STRP TEST 4 TIMES [...] 1 TABLET 3 TIMES DAILY NEEDED ??? OMEPRAZOLE 20 MG OR CPDR ONE DAILY ??? NEURONTIN 300 MG PO CAPS one in the am and 3 at night ??? ASPIRIN 81 MG OR TABS Histories reviewed and updated in [facility]. Shayy Ramos MA REVIEW OF SYSTEMS: C: POSitive for fatigue E: NEGATIVE for acute vision problems or changes R: NEGATIVE for significant cough or shortness of breath CV: NEGATIVE for chest pain, palpitations or new or worsening peripheral edema P: NEGATIVE for changes in mood or affect N: Postive for lower leg tingling x months. EXAM: Vitals: BP 130/75 Pulse 80 Wt 201 lb (91.173 kg) BMIE= There is no height on file to calculate BMI. GENERAL APPEARANCE: alert and no acute distress PSYCH: mentation appears normal and affect normal/bright RESP: lungs clear to auscultation - no rales, rhonchi or wheezes CV: regular rate and rhythm, normal S1 S2, no S3 or S4 and no murmur, click or rub - EXT: no cyanosis or edema in lower extremities SKIN: no venous stasis changes Foot Exam: no ASSESSMENT/PLAN: 250.00FV Type 2 Diabetes, HbA1c Goal < 7% (primary encounter diagnosis) Comment: We discussed the variation in diagnostic criteria for diabetes. Because she does have some symptoms including fatigue and peripheral neuropathy, we will diagnose and treat her as such. We reviewed side effects, efficacy of medications. She will follow up in 6-8 wks for labs. Plan: MetFORmin (GLUCOPHAGE) 500 MG tablet 272.4CL Hyperlipidemia LDL Goal <100 Comment: We reviewed her last lipids from 2 yrs ago and her new goal of <100. We discussed dietary and lifestyle precautions and we reviewed side effects, efficacy of medications. She will follow upin 6-8 wks for fasting labs to evaluate liipds. Plan: simvastatin (ZOCOR) 20 MG tablet 401.9BT Hypertension Goal BP (Blood Pressure) < 130/80 Comment: We discussed JAY protective components r/t diabetes and kidney disease. We reviewed new BP goals and side effects and efficacy of medications. She will follow up in 6-8 wksf or BP check and labs. Plan: lisinopril (PRINIVIL,ZESTRIL) 20 MG tablet Patient Instructions Start simvastatin daily for cholesterol. Schedule a lab only fasting appt in 6 wks to see where yourcholesterol is. Start metformin as it's prescribed. We will do a hgb A1C at the time of your fasting lab appt (in 6 wks) to see where it's at. Start lisinopril daily for blood pressure. Please call if you have any bothersome side effects. documented in this encounter Plan of Treatment [...] hypertension documented in this encounter Care Teams Manufacturing Manager Relationship Specialty Start Date End Date Selma Good, GRANTS DIRECTOR AIR QUALITY CHEMIST PCP - General 04/09/08 04/07/[address] [facility] [facility] [address] [place], [place] [address] documented as of this encounter
--- OUTSIDE RECORDS SUMMARY | 2022-01-17 22:17 | XMS_ITS | Encounter Summary ---
:1965 Author Organization [facility] Address [address] [place] [address] Care Team Providers Name Role Phone Selma Good APRN [facility] Primary Care Provider [phone] Reason for Visit [facility] Physical Therapy (Routine) - Closed Specialty Diagnoses / Procedures Referred By Contact Refer red To Contact Kylah Howard MD [facility] [address] [facility] [facility] [place] [address] [place] [address] Referral ID Status Reason Start Date Expiration Date Visits Requ ested Visits Authorized HP - NECK Closed 11/15/2009 06/10/2010 8 8 Encounter Details Date Type Department Care Team Description 12/24/2009 Therapy Visit [place] for Vadim Banda P Pietro Cervical Pain Athletic Medicine - Rehab Services (Prima ry Dx) [facility] Therapy [address] [place] [address] [place] [address] [place] [address] [phone] Social History Tobacco Use Types Packs/Day Years [...] How often do you attend anabaptist or gnosticist Patient refused 08/08/2019 services? Do you belong to any clubs or organizations such as No 08/08/2019 anabaptist groups, [employer], fraternal or athletic groups, or school groups? [...] this encounter Progress Notes Vadim Banda - 12/24/2009 4:06 PM CDT Subjective: HPI Objective: System Physical Exam General ROS Assessment/Plan: SUBJECTIVE Subjective changes as noted by pt: Patient reports that she is about 70% of normal. Feeling more sore in the back from some things at work and didn't do the full prone arm raise, did shoulders only. Headaches are still almost all the time. Current pain level: 4/10 Changes in function: Yes (See Goal flowsheet attached for changes in current functional level) Adverse reaction to treatment or activity: None OBJECTIVE Changes in objective findings: Yes, Moderate/min upper trap tension. Mid trap 4/5 bilaterally without UT over activation. Fail posture without cues. Good without cues. ASSESSMENT Megan continues to require intervention to meet STG and LTG's: PT Progressing slowly. Response to therapy has shown an improvement in pain level, ROM , strength and function Progress made towards STG/LTG? Yes (See Goal flowsheet attached for updates on achievement of STG and LTG) PLAN Current treatment program is being advanced to more complex exercises. EFFICIENCY CLERK/ATC plan: N/A Please refer to the daily flowsheet for treatment today, total treatment time and time spent performing 1:1 timed codes. documented in this encounter Plan of Treatment Not on filedocumented as of this encounter Procedures Procedure Name Priority Date/Time Associated Diagnosis Comme nts [facility] MANUAL THER Routine 12/24/2009 4:44 PM CDT Cervical Pain TECH,1+REGIONS,EA 15 MIN ZZC THERAPEUTIC Routine 12/24/2009 4:44 PM CDT Cervical Pain EXERCISES documented in this encounter Visit Diagnoses Diagnosis Cervical pain - Primary Cervicalgia documented in this encounter Care Teams Director Of Marketing Operations Relationship Specialty Start Date End Date Selma Good APRN SMALL ARMS REPAIRER PCP - General 04/09/08 04/07/15 [address] [facility] [place] [address] documented as of this encounter
--- OUTSIDE RECORDS SUMMARY | 2022-01-17 22:17 | XMS_ITS | Encounter Summary ---
:1965 Author Organization [facility] Address [address] [place] [address] Care Team Providers Name Role Phone Selma Good APRN BOWL SANDER Primary Care Provider [phone] Reason for Visit Reason Onset Date Comments Refill Request 06/20/2010 omeprazole Encounter Details Date Type Department Care Team Description 06/20/2010 Refill [facility] Selma Anthony Refill Request [id number], SEAN BOWL SANDER (omeprazole ) [place] [phone] [address] [facility] [phone] [facility] [place] [address] (Wo rk) Social History [...] How often do you attend holiness or temple Patient refused 08/08/2019 services? Do [...] Notes Telephone Encounter - Christina Phipps - 06/20/2010 2:26 PM CST Med request::omeprazole Date of last OV: 04/08/10 Refill per standing order per protocol. Zak JERNIGAN COUNSELOR documented in this encounter Plan of Treatment Not on filedocumented as of this encounter Visit Diagnoses Diagnosis GERD (gastroesophageal reflux disease) - Primary Esophageal reflux documented in this encounter Care Teams Substance Abuse Therapist Relationship Specialty Start Date End Date Danilo-Selma Mccoy, MANAGER BUSINESS BANKING BOWL SANDER PCP - General 04/09/08 04/07/[address] [place] [address] documented as of this encounter
--- OUTSIDE RECORDS SUMMARY | 2022-01-17 22:17 | XMS_ITS | Encounter Summary ---
:1965 Author Organization [place] Address [address] [place] [address] Care Team Providers Name Role Phone Selma Good APRN [facility] Primary Care Provider [phone] Reason for Referral - Closed Specialty Diagnoses / Procedures Referred By Contact Refer red To Contact Diagnoses Back pain Selma Good APRN [facility] [address] [facility] [address] [place] [address] Referral ID Status Reason Start Date Expiration Date Visits Requ ested Visits Authorized [id number] Closed 04/08/2010 04/08/2010 1 1 Reason for Visit Reason Comments RECHECK Pt is here today to review l ab results. Also she would like to discuss some of the medications (Metformi n) she is currently taking. Encounter Details Date Type Department Care Team Description 04/08/2010 Office Visit [facility] Florentino, Migraine he adaches; Pino Angeles APRN Type 2 diabetes, HbA1C goal < 7% (H); [facility] Hyperlipidemia LDL goal <100; [place] [phone] [address] [facility] Hypertension goal BP (blood pressure) < 130/80; [phone] NASIR ANDRE Back pain; [place] [id number] Need for prophylactic vaccination and in oculation [...] How often do you attend uatsdin or latter day Patient refused 08/08/2019 services? 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 Focus on the diabetes diet. I will try to schedule you for a fitting appointment for the CPAP machine in regards to sleep apnea. Schedule an appointment back with Dr. Whitehead for a complete foot exam for diabetes and to discusstoe. Expect a phone call to schedule with [facility] to discuss back pain. Schedule Mammogram: [facility] at documented in this encounter Progress Notes Selma Good - 04/08/2010 4:52 PM CDT SUBJECTIVE: eMgan Choi presents today for follow up of DIABETES MELLITUS and also notes she was recentlyseen by neuro for migraine HAs. She was put on topomax which has drastically improved her migraines.She has cut back her gabapentin and savella because of this. Her goal would be to be off savella andgaba completely. She does have an appt with neuro next wk and will et her know. Patient concerns: see above Patient glucose self monitoring: rarely. Blood glucose averages: 100 Symptoms of low blood sugar (hypoglycemia)? no Problems taking medications regularly? no Side effects? Diarrhea. She was off it, but restarted it. What are you doing for exercise outside of work or your daily activities? Yes, icnreased exercises. Health maintenance updated? Yes PHQ-2 Over the last two weeks- Have you been bothered by little interest or pleasure in doing things? No Over the last two weeks- Have you been been feeling down, depressed, or hopeless? No BP: BP Readings from Last 3 Encounters: 04/08/2010 120/68 02/15/2010 130/75 01/26/2010 122/78 A1C 6.7 04/02/2010 A1C 6.4 01/19/2010 A1C 6.3 10/24/2008 Recent Labs Lab Test 04/02/10 0816 10/24/08 0956 ??? CHOL 130 183 ??? HDL 37* 34* ??? LDL 78 123 ??? TRIG 74 132 ??? CHOLHDLRATIO 3.5 5.4* Wt Readings from Last 3 Encounters: 04/08/2010 88.026 kg (194 lb 1 oz) 02/15/2010 91.173 kg (201 lb) 01/26/2010 92.035 kg (202 lb 14.4 oz) Current outpatient prescriptions Medication Sig ??? topiramate (TOPAMAX) 25 MG tablet Take 25 mg by mouth 2 times daily. 2 a day ??? MetFORmin (GLUCOPHAGE) 500 MG tablet take 1 Tab by mouth 2 times daily (with meals). Take 1 tab PO BID x 1 wk, then 2 tabs BID x 1 wk ??? simvastatin (ZOCOR) 20 MG tablet take [...] TABS Histories reviewed and updated in [facility]. REVIEW OF SYSTEMS: C: NEGATIVE for fatigue, unexpected change in weight E: NEGATIVE for acute vision problems or changes R: NEGATIVE for significant cough or shortness of breath CV: NEGATIVE for chest pain, palpitations or new or worsening peripheral edema P: NEGATIVE for changes in mood or affect EXAM: Vitals: BP 120/68 Pulse 96 Wt 88.026 kg (194 lb 1 oz) BMIE= There is no height on file [...] venous stasis changes Foot Exam: no ASSESSMENT/PLAN: 346.90G Migraine headaches Comment: Plan: follow up with neuro 250.00FV Type 2 diabetes, HbA1C goal < 7% Comment: Plan: metformin (GLUCOPHAGE) 1000 MG tablet 272.4CL Hyperlipidemia LDL goal <100 Comment: Plan: simvastatin (ZOCOR) 20 MG tablet 401.9BT Hypertension goal BP (blood pressure) < 130/80 Comment: Plan: lisinopril (PRINIVIL,ZESTRIL) 20 MG tablet 724.5E Back pain Comment: Plan: ORTHO WOOL GROWER REFERRAL V04.81 Need for prophylactic vaccination and inoculation against influenza Comment: Plan: FLU VACCINE, 3 YRS+,IM Patient Instructions Come back early July for a hgb A1C to see if it can go down. Focus on the diabetes diet. I will try to schedule you for a fitting appointment for the CPAP machine in regards to sleep apnea. Schedule an appointment back with Dr. Whitehead for a complete foot exam for diabetes and to discusstoe. Expect a phone call to schedule with [facility] to discuss back pain. Schedule Mammogram: [facility] at documented in this encounter Nursing Notes 04/08/2010 4:45 PM CDT >> ALISA Freeman Apr 08, 2010 4:54 PM Patient presents with: RECHECK - Pt is here today to review lab results. Also she would like to discuss some of the medications (Metformin) she is currently taking. Initial BP 120/68 Pulse 96 Wt 88.026 kg (194 lb 1 oz) Estimated Body mass index is 35.49 kg/(m^2) as calculated from the following: Height as of 07/12/09: 5' 2(1.575 m). Weight as of this encounter: 194 lb 1 oz(88.026 kg). BP completed using cuff size: regular - left arm. Alisa Ramos MA documented in this encounter Plan of Treatment Not on filedocumented as of this encounter Procedures Procedure Name Priority Date/Time Associated Diagnosis Comme nts ORTHOPEDIC WOOL GROWER Routine 09/20/2010 Back pain Results for this REFERRAL procedure are i n the results section . documented in this encounter Results ORTHO WOOL GROWER REFERRAL (09/20/2010) Brendas Yoly Blackwell - 09/20/2010 Dates & times dont work for her right now, she has no PTO time left. She will call back and make an jairo ointment next year Narrative This result has an attachment that is no t available. Selma Good APRN MEDIA SALES CONSULTANT REFERRAL documented in this encounter Visit Diagnoses Diagnosis Migraine headaches Migraine, unspecified, without mention o f intractable migraine without mention of status migrainosus Type 2 diabetes, HbA1c goal < 7% (H) Type II or unspecified type diabetes sukhdev litus without mention of complication, not stated as uncontrolled Hyperlipidemia LDL goal <100 Other and unspecified hyperlipidemia Hypertension goal BP (blood pressure) < 130/80 Unspecified essential hypertension Back pain Backache, unspecified Need for prophylactic vaccination and in oculation against influenza documented in this encounter Care Teams Waffle Machine Operator Relationship Specialty Start Date End Date Selma Good APRN MEDIA SALES CONSULTANT PCP - General 04/09/08 04/07/15 [address] [facility] [place] [address] documented as of this encounter
--- OUTSIDE RECORDS SUMMARY | 2022-01-17 22:17 | XMS_ITS | Encounter Summary ---
:1965 Author Organization [place] Address [address] [place] [address] Care Team Providers Name Role Phone Selma Good APRN [facility] Primary Care Provider [phone] Reason for Visit Reason Comments Other Pt had a cold for a couple o f days and pt has been out of work for 3 days and needs a letter to g o back to work. Derm Problem Pt is here today because she has a sore that is red, lump, and tender on her Lt leg for about 3wks no w. Encounter Details Date Type Department Care Team Description 08/26/2010 Office Visit [facility] Florentino, Cellulitis of leg Pino Angeles APRN (Primary Dx) [address] [facility] [place] [id number] [facility] [phone] [facility] [place] [id number] Social History Tobacco Use Types Packs/Day Years [...] How often do you attend pentecostal or religion Patient refused 08/08/2019 services? Do [...] Sign Reading Time Taken Comments Blood Pressure 112/62 08/26/2010 2:29 PM CDT Pulse 76 08/26/2010 2:29 PM CDT Temperature - - Respiratory Rate - - Oxygen Saturation - - Inhaled Oxygen Concentration - - Weight 81.7 kg (180 lb 1 oz) 08/26/2010 2:29 PM CDT Height 157.5 cm (5' 2) 08/26/2010 2:29 PM CDT Body Mass Index 32.93 08/26/2010 2:29 PM CDT documented in this encounter Progress Notes Selma Good - 08/26/2010 3:14 PM CDT SUBJECTIVE: Megan Choi, a 45 year old female scheduled an appointment to discuss the following issues: Has a sore on her L lateral, lower leg x 19 days. Thought it was a bug bite but noticed it wasn't getting any better. States it is painful, denies itching. Has tried icing it with no relief. Denies anytopical tx. Denies feeling feverish or any myalgia related to sore. Has had gastroenteritis x 3days that everyone in her family has had. Has been able to eat solids today and would like a note for return to work. Medical, social, surgical, and family histories reviewed. ROS: C: NEGATIVE for fever, chills, change in weight INTEGUMENTARY/SKIN: POSITIVE for non-healing lesion on lateral L lower leg GI: POSITIVE for diarrhea and nausea MUSCULOSKELETAL:POSITIVE for myalgia OBJECTIVE: BP 112/62 Pulse 76 Ht 5' 2 (1.575 m) Wt 180 lb 1 oz (81.676 kg) BMI 32.93 kg/m2 EXAM: GENERAL APPEARANCE: healthy, alert and no distress SKIN: 2.5 cm diameter slitely raised, erythmatous lesion on lateral aspect of L lower leg; tender topalpation, epidermis intact, no drainage or purulent accumulation noted. ASSESSMENT: Cellulitis Comment: Have pt start on course of Augmentin with strict/specific instructions to contact clinic Sunday am if lesion is the same or worse. PLAN: Augmentin. Contact clinic if same or worse by Sunday a.m. documented in this encounter Nursing Notes 08/26/2010 2:30 PM CDT >> ALISA RAMOS SunAug 26, 2010 2:34 PM Patient presents with: Other - Pt had a cold for a couple of days and pt has been out of work for 3 days and needs a letter to go back to work. Derm Problem - Pt is here today because she has a sore that is red, lump, and tender on her Lt leg for about 3wks now. Initial BP 112/62 Pulse 76 Ht 5' 2 (1.575 m) Wt 180 lb 1 oz (81.676 kg) BMI 32.93 kg/m2 Estimated Body mass index is 32.93 kg/(m^2) as calculated from the following: Height as of this encounter: 5' 2(1.575 m). Weight as of this encounter: 180 lb 1 oz(81.676 kg). BP completed using cuff size: regular - left arm. Alisa Ramos MA documented in this encounter Plan of Treatment Not on filedocumented as of this encounter Visit Diagnoses Diagnosis Cellulitis of leg - Primary Cellulitis and abscess of leg, except fo ot documented in this encounter Care Teams Ncqa Specialist Relationship Specialty Start Date End Date Selma Good APRN METAL OR WOOD BLOCKER PCP - General 04/09/08 04/07/[address] [facility] [address] [place], [place] [address] documented as of this encounter
--- OUTSIDE RECORDS SUMMARY | 2022-01-17 22:18 | XMS_ITS | Encounter Summary ---
:1965 Author Organization [place] Address [address] [place] [address] Care Team Providers Name Role Phone Selma Good APRN CLIP WRAPPER Primary Care Provider [phone] Reason for Visit [facility] (Routine) - Closed Specialty Diagnoses / Procedures Referred By Contact Refer red To Contact Rayo Rouse PA-C [facility] [place] [address] [address] [place] [address] Referral ID Status Reason Start Date Expiration Date Visits Requ ested Visits Authorized HP - ELBOW Closed 03/22/2009 06/10/2009 17 15 Encounter Details Date Type Department Care Team Description 04/12/2009 Therapy Visit [place] for Graciela Dupree PT Lateral Epicondylitis Athletic Medicine - [address] of [place] (Primary Dx) [facility] [place] [address] Therapy [phone] [facility] Priscilla Sharpe (Work) [place] [address] Social History Tobacco Use Types Packs/Day Years [...] often do you attend jehovah's witness or sabianism Patient refused 08/08/2019 services? Do you belong to any clubs or organizations such as No 08/08/2019 jehovah's witness groups, [employer], fraternal or athletic groups, or school groups? [...] this encounter Progress Notes Graciela Dupree - 04/12/2009 5:23 PM CST Please refer to the daily flowsheet for treatment today and total treatment time. Does this patient have Medicare or Medicaid as primary or secondary insurance? NO ER TANK TENDER HELPER HEAD documented in this encounter Plan of Treatment Not on filedocumented as of this encounter Procedures Procedure Name Priority Date/Time Associated Diagnosis Comme nts ZZC MANUAL THER Routine 04/12/2009 5:23 PM Lateral Epicondylit is of TECH,1+REGIONS,EA 15 FILTER TANK TENDER HELPER HEAD Elbow MIN ZZC THERAPEUTIC Routine 04/12/2009 5:23 PM Lateral Epicondylit is of EXERCISES FILTER TANK TENDER HELPER HEAD Elbow ZC ULTRASOUND THERAPY Routine 04/12/2009 5:23 PM Lateral Epic ondylitis of FILTER TANK TENDER HELPER HEAD Elbow ZZC HOT OR COLD PACKS Routine 04/12/2009 5:23 PM Lateral Epico ndylitis of THERAPY FILTER TANK TENDER HELPER HEAD Elbow documented in this encounter Visit Diagnoses Diagnosis Lateral epicondylitis of elbow - Primary Lateral epicondylitis of elbow documented in this encounter Care Teams Air Twister Winder Relationship Specialty Start Date End Date Danilo-Selma Mccoy, THREE DIMENSIONAL ART INSTRUCTOR CLIP WRAPPER PCP - General 04/09/08 04/07/[address] [facility] [facility] [address] [place], [place] [address] documented as of this encounter
--- OUTSIDE RECORDS SUMMARY | 2022-01-17 22:18 | XMS_ITS | Encounter Summary ---
:1965 Author Organization [place] Address [address] [place] [address] Care Team Providers Name Role Phone Selma Good APRN ANIMAL CARE TECHNICIAN Primary Care Provider [phone] Reason for Visit [facility] (Routine) - Closed Specialty Diagnoses / Procedures Referred By Contact Refer red To Contact Rayo Rouse PA-C [facility] [place] [address], [place] [address] Referral ID Status Reason Start Date Expiration Date Visits Requ ested Visits Authorized HP - ELBOW Closed 03/22/2009 06/10/2009 17 15 Encounter Details Date Type Department Care Team Description 04/08/2009 Therapy Visit [place] for Vadim Banda P T Lateral Epicondylitis Athletic Medicine - [facility] (Primary Dx) [facility] Therapy [address] [place] [address] [place] [address] [place] [address] [phone] Social History Tobacco Use Types Packs/Day Years [...] How often do you attend protestant or shinto Patient refused 08/08/2019 services? Do you belong to any clubs or organizations such as No 08/08/2019 protestant groups, [employer], fraternal or athletic groups, or school groups? [...] this encounter Progress Notes Vadim Banda - 04/08/2009 4:27 PM CDT Please refer to the daily flowsheet for treatment today and total treatment time. Does this patient have Medicare or Medicaid as primary or secondary insurance? NO documented in this encounter Plan of Treatment Not on filedocumented as of this encounter Procedures Procedure Name Priority Date/Time Associated Diagnosis Comme nts ZZC MANUAL THER Routine 04/08/2009 5:00 PM Lateral Epicondylit is of TECH,1+REGIONS,EA 15 CDT Elbow MIN ZZC THERAPEUTIC Routine 04/08/2009 5:00 PM Lateral Epicondylit is of EXERCISES CDT Elbow ZZC ULTRASOUND THERAPY Routine 04/08/2009 5:00 PM Lateral Epic ondylitis of CDT Elbow documented in this encounter Visit Diagnoses Diagnosis Lateral epicondylitis of elbow - Primary Lateral epicondylitis of elbow documented in this encounter Care Teams Vp Data Relationship Specialty Start Date End Date Danilo-Selma Mccoy, MEDICAL ART THERAPIST ANIMAL CARE TECHNICIAN PCP - General 04/09/08 04/07/[address] [place], [place] [address] documented as of this encounter
--- OUTSIDE RECORDS SUMMARY | 2022-01-17 22:18 | XMS_ITS | Encounter Summary ---
:1965 Author Organization [place] Address [address] [place] [address] Care Team Providers Name Role Phone Selma Good APRN MANAGER HOSPICE Primary Care Provider [phone] Reason for Visit Reason Comments Cough cough, st x 4 days Encounter Details Date Type Department Care Team Description 11/17/2009 Office Visit [place] Ashli Montoya C ough (Primary Dx); Care ACUTE PHARYNGITIS [address] [place] [address] [place] [id number] [place] A[place] [id number] (Wo rk) Social History Tobacco Use Types [...] How often do you attend judaism or congregation Patient refused 08/08/2019 services? Do [...] Sign Reading Time Taken Comments Blood Pressure 116/68 11/17/2009 7:17 PM CDT Pulse - - Temperature 37.5 ??C (99.5 ??F) 11/17/2009 7:17 PM CDT Respiratory Rate 16 11/17/2009 7:17 PM CDT Oxygen Saturation 98% 11/17/2009 7:17 PM CDT Inhaled Oxygen Concentration - - Weight - - Height - - Body Mass Index - - documented in this encounter Progress Notes Ashli Tamez - 11/17/2009 7:26 PM CDT SUBJECTIVE: Megan Choi is a 44 year old female who presents to the clinic today with a chief complaint of cough and sore throat for 4 days. Her cough is described as sometimes productive. The patient's symptoms are moderate and worsening. Associated symptoms include chills. The patient's symptoms are exacerbated by no particular triggers. Patient has been using nothing to improve symptoms. Hasn't noticedany wheezing. No fevers. No chest pain or shortness of breath. Past Medical History Diagnosis Date ??? 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 Tobacco Use: Never ??? Alcohol Use: Yes Rare ROS Review of systems negative except as stated above. OBJECTIVE: BP 116/68 Temp(Src) 99.5 ??F (37.5 ??C) (Oral) Resp 16 GENERAL APPEARANCE: healthy, alert and no distress EYES: conjunctiva clear HENT: ear canals and TM's normal. Nose and mouth without ulcers, erythema or lesions NECK: supple, nontender, no lymphadenopathy RESP: lungs clear to auscultation - no rales, rhonchi or wheezes but does have prolonged expiratory phase CV: regular rate and rhythm, normal S1 S2, no murmur noted SKIN: no suspicious lesions or rashes ASSESSMENT: Persistent cough and pharyngitis PLAN: See orders in [facility] for prednisone burst, albuterol MDI, and Tessalon. Symptomatic measures encouraged, humidified air, plenty of fluids. documented in this encounter Nursing Notes 11/17/2009 6:45 PM CDT >> BLANK ULLOA SunNov 17, 2009 7:19 PM Patient presents with: Cough - cough, st x 4 days Initial BP 116/68 Temp(Src) 99.5 ??F (37.5 ??C) (Oral) Resp 16 Estimated Body mass index is 38.57 kg/(m^2) as calculated from the following: Height as of 07/12/09: 5' 2(1.575 m). Weight as of 07/12/09: 210 lb 14.4 oz(95.664 kg).. BP completed using cuff size: large Blank Ulloa GRAIN BUYER documented in this encounter Plan of Treatment Not on filedocumented as of this encounter Procedures Procedure Name Priority Date/Time Associated Diagnosis Comme nts HCL STREP GROUP A Routine 11/17/2009 7:28 PM Acute Pharyngitis Results for this ANTIGEN (RAPID) CDT procedure ar e in the results section. HCL BETA STREP Routine 11/17/2009 7:28 PM Acute Pharyngitis Re sults for this CONFIRM CDT procedure are i n the results section. documented in this encounter Results BETA STREP CONFIRM (11/17/2009 7:28 PM CDT) Component Value Ref Test Analysis Performed At [facility] gist Range Method Time Signature Specimen Throat [place] Description [facility] Culture Micro No Beta [place] Streptococcus [facility] isolated LAB Micro Report FINAL 11/19/2009 [place] Status [facility] Specimen Anatomical Collection Method Collection Time Receive d Time (Source) Location / / Volume Laterality 11/17/2009 7:28 PM 0 7:33 CDT PM CDT Ashli Tamez MD LABORATORY Performing Organization Address City/[facility]/ZIP Code Phon e Number [facility] [address] [facility] [place] [address] [phone] [facility] STREP GROUP A ANTIGEN (RAPID) (11/17/2009 7:28 PM CDT) Component Value Ref Test Analysis Performed At [facility] [employer] Range Method Time Signature Specimen Throat [place] Description [facility] Rapid Strep A NEGATIVE: No Group A strepto coccal antigen detected by immunoassay, await [place] Screen culture report. [facility] Micro Report FINAL 11/17/2009 [place] Status [facility] Specimen Anatomical Collection Method Collection Time Receive d Time (Source) Location / / Volume Laterality 11/17/2009 7:28 PM 0 7:33 CDT PM CDT Ashli Tamez MD LABORATORY Performing Organization Address City/[facility]/ZIP Code Phon e Number [facility] [address] [facility] [address] [phone] [facility] documented in this encounter Visit Diagnoses Diagnosis Cough - Primary Acute pharyngitis documented in this encounter Care Teams Associate Professor Of History Relationship Specialty Start Date End Date Danilo-Selma Mccoy APRN MANAGER HOSPICE PCP - General 04/09/08 04/07/15 [address] [facility] [place] [address] documented as of this encounter
--- OUTSIDE RECORDS SUMMARY | 2022-01-17 22:18 | XMS_ITS | Encounter Summary ---
:1965 Author Organization [place] Address [address] [place] [address] Care Team Providers Name Role Phone Selma Good APRN SOCIAL MEDIA ANALYST Primary Care Provider [phone] Reason for Visit [facility] Physical Therapy (Routine) - Closed Specialty Diagnoses / Procedures Referred By Contact Refer red To Contact Rayo Rouse PA-C [facility] [place] [address] [place] [address] Referral ID Status Reason Start Date Expiration Date Visits Requ ested Visits Authorized HP - ELBOW Closed 03/22/2009 06/10/2009 17 15 Encounter Details Date Type Department Care Team Description 04/19/2009 Therapy Visit [place] for Graciela Dupree PT Lateral Epicondylitis Athletic Medicine - [address] of [place] (Primary Dx) [facility] [facility] [place] [address] Therapy [phone] [employer] Priscilla Sharpe (Work) [place] [address] Social History Tobacco Use Types Packs/Day Years [...] How often do you attend yazidism or oriental orthodox Patient refused 08/08/2019 services? [...] this encounter Progress Notes Graciela Dupree - 04/19/2009 5:29 PM CST Please refer to the daily flowsheet for treatment today and total treatment time. Does this patient have Medicare or Medicaid as primary or secondary insurance? NO NCT ART HISTORY INSTRUCTOR documented in this encounter Plan of Treatment Not on filedocumented as of this encounter Procedures Procedure Name Priority Date/Time Associated Diagnosis Comme nts Z MANUAL THER Routine 04/19/2009 5:30 PM Lateral Epicondylit is of TECH,1+REGIONS,EA 15 ADJUNCT ART HISTORY INSTRUCTOR Elbow MIN ZZC THERAPEUTIC Routine 04/19/2009 5:30 PM Lateral Epicondylit is of EXERCISES ADJUNCT ART HISTORY INSTRUCTOR Elbow Z ULTRASOUND THERAPY Routine 04/19/2009 5:30 PM Lateral Epic ondylitis of ADJUNCT ART HISTORY INSTRUCTOR Elbow documented in this encounter Visit Diagnoses Diagnosis Lateral epicondylitis of elbow - Primary Lateral epicondylitis of elbow documented in this encounter Care Teams Manager Retirement Relationship Specialty Start Date End Date Danilo-Selma Mccoy, COOK BOX FILLER SOCIAL MEDIA ANALYST PCP - General 04/09/08 04/07/15 [address] [facility] [place] [address] documented as of this encounter
--- OUTSIDE RECORDS SUMMARY | 2022-01-17 22:18 | XMS_ITS | Encounter Summary ---
:1965 Author Organization [place] Address [facility] [place] [address] Care Team Providers Name Role Phone Selma Good APRN HOME SCHOOL LIAISON OFFICER Primary Care Provider Reason for Referral - Closed Specialty Diagnoses / Procedures Referred By Contact Refer red To Contact Diagnoses Right elbow pain Rayo Rouse PA-C [facility] [address] [place] [address] Referral ID Status Reason Start Date Expiration Date Visits Requ ested Visits Authorized [id number] Closed 03/12/2009 06/10/2011 1 1 Reason for Visit Reason Comments Musculoskeletal Problem right arm injury on 6 days a go after hanging up clothes, she felt a large pop near forear m Urgent Care Encounter Details Date Type Department Care Team Description 03/12/2009 Office Visit [facility] Urgent Rayo Rouse Righ t Elbow Pain Care [place] (Primary Dx) [address] [facility] [place] [address] [phone] [place] [id number] Social History Tobacco Use Types Packs/Day Years [...] How often do you attend confucianist or sabianist Patient refused 08/08/2019 services? Do you belong to any clubs or organizations such as No 08/08/2019 confucianist groups, Tattvas, fraSparkroad or athletic groups, or school groups? How [...] Sign Reading Time Taken Comments Blood Pressure 150/90 03/12/2009 6:10 PM CDT Pulse 80 03/12/2009 6:10 PM CDT Temperature 36.2 ??C (97.2 ??F) 03/12/2009 6:10 PM CDT Respiratory Rate - - Oxygen Saturation - - Inhaled Oxygen Concentration - - Weight - - Height - - Body Mass Index - - documented in this encounter Progress Notes Rayo Rouse - 03/12/2009 6:25 PM CDT SUBJECTIVE: Chief Complaint Patient presents with ??? Musculoskeletal Problem right arm injury on 6 days ago after hanging up clothes, she felt a large pop near forearm ??? Urgent Care Megan Choi is a 43 year old female presents with a chief complaint of right elbow pain and decreased range of motion. The injury occurred 1 day(s) ago. The injury happened while at home. How: liftingimmediate pain, immediate swelling, no deformity was noted by the patient. The patient complained of moderate pain and has had decreased ROM. Pain exacerbated by movement. Relieved by nothing. She treated it initially with no therapy. This is the first time this type of injury has occurred to this patient. Past Medical History Diagnosis Date ??? 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 IBUPROFEN None Entered ??? GABAPENTIN None Entered ??? OMEPRAZOLE 20 MG OR CPDR ONE DAILY ??? ASPIRIN 81 MG OR TABS ONE DAILY History Substance Use Topics ??? Tobacco Use: Never ??? Alcohol Use: Yes Rare ROS: Review of systems negative except as stated above. EXAM: BP 150/90 Pulse 80 Temp (Src) 97.2 ??F (36.2 ??C) (Oral) Gen: healthy,alert,no distress Extremity: elbow has point tenderness over the radial head. There is not compromise to the distal circulation. Pulses are +2 and DECORATING SUPERVISOR is brisk GENERAL APPEARANCE: healthy, alert and no distress EXTREMITIES: peripheral pulses normal SKIN: no suspicious lesions or rashes NEURO: Normal strength and tone, sensory exam grossly normal, mentation intact and speech normal X-RAY was done. ASSESSMENT: sprain/strain of elbow PLAN: 1) Rest, Ice, Compress, Elevate and Physical Therapy 2) Follow up with PCP if no relief noted documented in this encounter Nursing Notes 03/12/2009 6:00 PM CDT >> MARCELINA Freeman Mar 12, 2009 6:12 PM Megan Choi; Patient presents with: Musculoskeletal Problem - right arm injury on 6 days ago after hanging up clothes, she felt a largepop near forearm. Decrease ROM Urgent Care Initial BP 150/90 Pulse 80 Temp (Src) 97.2 ??F (36.2 ??C) (Oral) Estimated Body mass index is 36.62 kg/(m^2) as calculated from: Height of 5' 2 (1.575 m) as of 02/11/09 Weight of 200 lb 3.2 oz (90.81 kg) as of 02/11/09. BP completed using cuff size regular. Marcelina Linares R.N. documented in this encounter Plan of Treatment Not on filedocumented as of this encounter Procedures Procedure Name Priority Date/Time Associated Diagnosis Comme [facility] RT X-RAY ELBOW Routine 03/12/2009 6:28 PM Right elbow pain Results for this 2 VW CDT procedure are i n the results section. documented in this encounter Results RT X-RAY ELBOW 2 VW (03/12/2009 6:28 PM CDT) Anatomical Region Laterality Modality Other Specimen (Source) Anatomical Collection Method Collection Time Re ceived Time Location / / Volume Laterality 03/12/2009 6:28 PM CDT Impressions 03/13/2009 9:17 AM CDT ELBOW TWO VIEWS RIGHT ??Mar 12, 2009 6:28 :00 PM HISTORY: Right elbow pain. FINDINGS: Negative. Rayo Rouse PA-C [facility] documented in this encounter Visit Diagnoses Diagnosis Right elbow pain - Primary Pain in joint, upper arm documented in this encounter Care Teams Prison Teacher Relationship Specialty Start Date End Date Danilo-Selma Mccoy, REMOTELY OPERATED VEHICLE HOME SCHOOL LIAISON OFFICER PCP - General 04/09/08 04/07/[address] [facility] [address] [place], [place] [address] documented as of this encounter
--- OUTSIDE RECORDS SUMMARY | 2022-01-17 22:18 | XMS_ITS | Encounter Summary ---
:1965 Author Organization [place] Address [address] [place] [address] Care Team Providers Name Role Phone Selma Good APRN [facility] Primary Care Provider Reason for Visit [facility] Physical Therapy (Routine) - Closed Specialty Diagnoses / Procedures Referred By Contact Refer red To Contact Kylah Howard MD [facility] NEURO [facility] MED [address] [facility] [address] [place] [address] Referral ID Status Reason Start Date Expiration Date Visits Requ ested Visits Authorized HP - NECK Closed 11/15/2009 06/10/2010 8 8 Encounter Details Date Type Department Care Team Description 12/20/2009 Therapy Visit [place] for Sukhi Rust, P T Cervical Pain Athletic Medicine - [facility] [place] (Primary Dx) [facility] [address] [place] [address] [place] [address] [place] [phone] Social History Tobacco Use Types Packs/Day [...] How often do you attend yazidi or druze Patient refused 08/08/2019 services? Do you belong to any clubs or organizations such as No 08/08/2019 yazidi groups, [employer], [employer]bi [employer] or athletic groups, or school groups? How [...] Procedure Name Priority Date/Time Associated Diagnosis Comme [facility] ZC MANUAL THER Routine 12/20/2009 4:39 PM CDT Cervical Pain TECH,1+REGIONS,EA 15 MIN ZZC THERAPEUTIC Routine 12/20/2009 4:39 PM CDT Cervical Pain EXERCISES documented in this encounter Visit Diagnoses Diagnosis Cervical pain - Primary Cervicalgia documented in this encounter Care Teams Assistant Strength Coach Relationship Specialty Start Date End Date Danilo-Selma Mccoy, AGRICULTURAL CROP FARM MANAGER MONEY ROOM TELLER PCP - General 04/09/08 04/07/15 [address] [facility] [place] [address] documented as of this encounter
--- OUTSIDE RECORDS SUMMARY | 2022-01-17 22:18 | XMS_ITS | Encounter Summary ---
:1965 Author Organization [place] Address [address] [place] [address] Care Team Providers Name Role Phone Selma Good APRN IRRIGATION SYSTEM INSTALLER Primary Care Provider [phone] Reason for Visit [facility] Physical Therapy (Routine) - Closed Specialty Diagnoses / Procedures Referred By Contact Refer red To Contact Rayo Rouse PA-C [facility] [place] [address] [place] [address] Referral ID Status Reason Start Date Expiration Date Visits Requ ested Visits Authorized HP - ELBOW Closed 03/22/2009 06/10/2009 17 15 Encounter Details Date Type Department Care Team Description 04/16/2009 Therapy Visit [place] for Graciela Dupree PT Lateral Epicondylitis Athletic Medicine - [address] of [place]bow (Primary Dx) [facility] [facility] [place] [address] Therapy [phone] [facility] Priscilla Sharpe (Work) [place] [address] Social History Tobacco Use Types Packs/Day Years [...] How often do you attend spiritism or latter-day Patient refused 08/08/2019 services? Do [...] this encounter Progress Notes Graciela Dupree - 04/16/2009 4:30 PM CST Please refer to the daily flowsheet for treatment today and total treatment time. Does this patient have Medicare or Medicaid as primary or secondary insurance? NO ERS' COMPENSATION CLAIMS EXAMINER documented in this encounter Plan of Treatment Not on filedocumented as of this encounter Procedures Procedure Name Priority Date/Time Associated Diagnosis Comme nts Z MANUAL THER Routine 04/16/2009 4:31 PM Lateral Epicondylit is of TECH,1+REGIONS,EA 15 WORKERS' COMPENSATION CLAIMS EXAMINER Elbow MIN ZZC THERAPEUTIC Routine 04/16/2009 4:31 PM Lateral Epicondylit is of EXERCISES WORKERS' COMPENSATION CLAIMS EXAMINER Elbow Z ULTRASOUND THERAPY Routine 04/16/2009 4:31 PM Lateral Epic ondylitis of WORKERS' COMPENSATION CLAIMS EXAMINER Elbow documented in this encounter Visit Diagnoses Diagnosis Lateral epicondylitis of elbow - Primary Lateral epicondylitis of elbow documented in this encounter Care Teams Computer Systems Auditor Relationship Specialty Start Date End Date Danilo-Selma Mccoy, COMB SETTER IRRIGATION SYSTEM INSTALLER PCP - General 04/09/08 04/07/15 [address] [facility] [place] [id number] documented as of this encounter
--- OUTSIDE RECORDS SUMMARY | 2022-01-17 22:18 | XMS_ITS | Encounter Summary ---
:1965 Author Organization [place] Address [address] [place] [address] Care Team Providers Name Role Phone Selma Good APRN BARREL ROLLER OPERATOR Primary Care Provider [phone] Reason for Visit [facility] Physical Therapy (Routine) - Closed Specialty Diagnoses / Procedures Referred By Contact Refer red To Contact Rayo Rouse PA-C [facility] [place] [address] [place] [address] Referral ID Status Reason Start Date Expiration Date Visits Requ ested Visits Authorized HP - ELBOW Closed 03/22/2009 06/10/2009 17 15 Encounter Details Date Type Department Care Team Description 03/24/2009 Therapy Visit [place] for Graciela Dupree PT Lateral Epicondylitis Athletic Medicine - [address] of Elbow (Primary Dx) [facility] [facility] [place] [address] Therapy [phone] [facility] Priscilla Sharpe (Work) [place] [id number] Social History Tobacco Use Types Packs/Day Years [...] How often do you attend jew or christianity Patient refused 08/08/2019 services? Do [...] this encounter Progress Notes Graciela Dupree - 03/24/2009 5:22 PM CDT Initial evaluation was completed. Please refer to the daily flowsheet for treatment today and total treatment time. Does this patient have Medicare or Medicaid as primary or secondary insurance? NO documented in this encounter Plan of Treatment Not on filedocumented as of this encounter Procedures Procedure Name Priority Date/Time Associated Diagnosis Comme nts Z MANUAL THER Routine 03/24/2009 5:23 PM Lateral Epicondylit is of TECH,1+REGIONS,EA 15 CDT Elbow MIN ZZC THERAPEUTIC Routine 03/24/2009 5:23 PM Lateral Epicondylit is of EXERCISES CDT Elbow ZZ ULTRASOUND THERAPY Routine 03/24/2009 5:23 PM Lateral Epic ondylitis of CDT Elbow documented in this encounter Visit Diagnoses Diagnosis Lateral epicondylitis of elbow - Primary Lateral epicondylitis of elbow documented in this encounter Care Teams Quality Control Assessor Relationship Specialty Start Date End Date Danilo-Selma Mccoy, COOLING SYSTEM OPERATOR BARREL ROLLER OPERATOR PCP - General 04/09/08 04/07/15 [address] [facility] [place] [address] documented as of this encounter
--- OUTSIDE RECORDS SUMMARY | 2022-01-17 22:18 | XMS_ITS | Encounter Summary ---
:1965 Author Organization [place] Address [address] [place] [address] Care Team Providers Name Role Phone Selma Good APRN [facility] Primary Care Provider [phone] Reason for Visit Reason Comments Elbow Pain c/o left elbow pain for 3 mo nths. no known injury Encounter Details Date Type Department Care Team Description 02/11/2009 Office Visit [facility] [place], Cervical Ra diculopathy [place] APRN (Primary Dx) [address] [facility] [place] [phone] [place] [address] [facility] [place] [id number] Social History Tobacco Use Types Packs/Day Years [...] How often do you attend uatsdin or muslim Patient refused 08/08/2019 services? Do [...] Sign Reading Time Taken Comments Blood Pressure 126/72 02/11/2009 4:07 PM CDT Pulse 80 02/11/2009 4:07 PM CDT Temperature - - Respiratory Rate - - Oxygen Saturation - - Inhaled Oxygen Concentration - - Weight 90.8 kg (200 lb 3.2 oz) 02/11/2009 4:07 PM CDT Height 157.5 cm (5' 2) 02/11/2009 4:07 PM CDT Body Mass Index 36.62 02/11/2009 4:07 PM CDT documented in this encounter Progress Notes Selma Good - 02/12/2009 8:21 AM CDT SUBJECTIVE: Megan Choi is a 43 year old female who presents with musculoskeletal problem. Onset how long ago? 2 months Location: L elbow, back of upper arm and forearm, radiating to ring and pinky finger. Pain severity currently: 2-5 on a scale of 1-10 Pain is not changed since onset. Aggravating Factors: movement Therapies to improve symptoms include: ibuprofen Associated symptoms include: Tenderness This is the first time this type of problem has occurred for this patient. She does have a hx of cervical fusion surgery at C5-8 and has also had neck and upper L shoulder muscular tension. ROS: 5-Point Review of Systems Negative-- Except as stated above. EXAM: BP 126/72 Pulse 80 Ht 5' 2 (1.575 m) Wt 200 lb 3.2 oz (90.81 kg) GENERAL EXAM: GENERAL APPEARANCE: healthy, alert and no distress EXTREMITIES: peripheral pulses normal SKIN: no suspicious lesions or rashes NEURO: Normal strength and tone, sensory exam grossly normal, mentation intact and speech normal Neck: ROM of neck is minimally limited in rotation due to muscular pain. Some L trap muscular tension and tendernes upon palpation. Sky Cap strength +2/+2, sensation to lt touch of fingers intact. Pain described as tingling and numbness. X-RAY was not done. ASSESSMENT/PLAN: 723.4AS Cervical Radiculopathy (primary encounter diagnosis) Comment: Discussed this pain is most likely stemming from her ongoing neck problems. She had an option to see neurology or engine specialist. Her old engine specialist who did her surgeries in 2000 is nolonger practicing. She opts to see neurology. She had a previous referral for her migraine HAs, and instructed to schedule appt to discuss both. She was instructed to do 600 mg ibu TID until then, and ice and ROM exercises for her neck. Can contact clinic for referral to spine if she so chooses. Plan: documented in this encounter Nursing Notes 02/11/2009 4:15 PM CDT >> HECTOR Schroeder Feb 11, 2009 4:10 PM Patient presents with: Elbow Pain - c/o left elbow pain for 3 months. no known injury Initial BP 126/72 Pulse 80 Ht 5' 2 (1.575 m) Wt 200 lb 3.2 oz (90.81 kg) Body mass index is 36.62 kg/(m^2).. BP completed using cuff size: regular documented in this encounter Plan of Treatment Not on filedocumented as of this encounter Visit Diagnoses Diagnosis Cervical radiculopathy - Primary Brachial neuritis or radiculitis nos documented in this encounter Care Teams Assembler Insulator Relationship Specialty Start Date End Date Danilo-Selma Mccoy, FURNACE MAINTENANCE PERCUSSION INSTRUMENT REPAIRER PCP - General 04/09/08 04/07/15 [address] [facility] [address] [place], [place] [address] documented as of this encounter
--- OUTSIDE RECORDS SUMMARY | 2022-01-17 22:18 | XMS_ITS | Encounter Summary ---
:1965 Author Organization [place] Address [address] [place] [address] Care Team Providers Name Role Phone Selma Good APRN [facility] Primary Care Provider [phone] Reason for Visit [facility] Physical Therapy (Routine) - Closed Specialty Diagnoses / Procedures Referred By Contact Refer red To Contact Kylah Howard MD [facility] CLIN[facility] OF NEURO [facility] MED [address] [facility] [address] [place] [address] Referral ID Status Reason Start Date Expiration Date Visits Requ ested Visits Authorized HP - NECK Closed 11/15/2009 06/10/2010 8 8 Encounter Details Date Type Department Care Team Description 12/10/2009 Therapy Visit [place] for Sukhi Rust, P T Cervical Pain Athletic Medicine - [facility] [place] (Primary Dx) [facility] [address] [place] [address] [place] [address] [place] [phone] Social History Tobacco Use Types Packs/Day [...] How often do you attend confucianism or muslim Patient refused 08/08/2019 services? Do you belong to any clubs or organizations such as No 08/08/2019 confucianism groups, [employer], [id number] or athletic groups, or school groups? How [...] Name Priority Date/Time Associated Diagnosis Comme [facility] ZC MANUAL THER Routine 12/10/2009 5:35 PM CDT Cervical Pain TECH,1+REGIONS,EA 15 MIN ZZC THERAPEUTIC Routine 12/10/2009 5:35 PM CDT Cervical Pain EXERCISES documented in this encounter Visit Diagnoses Diagnosis Cervical pain - Primary Cervicalgia documented in this encounter Care Teams Egyptologist Relationship Specialty Start Date End Date Danilo-Selma Mccoy, BUILDING SERVICE WORKER BOAT RENTAL CLERK PCP - General 04/09/08 04/07/15 [address] [facility] [place] [address] documented as of this encounter
--- OUTSIDE RECORDS SUMMARY | 2022-01-17 22:18 | XMS_ITS | Encounter Summary ---
:1965 Author Organization [place] Address [address] [place] [address] Care Team Providers Name Role Phone Selma Good APRN GLASS INSTALLER Primary Care Provider [phone] Reason for Visit [facility] Physical Therapy (Routine) - Closed Specialty Diagnoses / Procedures Referred By Contact Refer red To Contact Rayo Rouse PA-C [facility] [place] [address] [place] [address] Referral ID Status Reason Start Date Expiration Date Visits Requ ested Visits Authorized HP - ELBOW Closed 03/22/2009 06/10/2009 17 15 Encounter Details Date Type Department Care Team Description 05/17/2009 Therapy Visit [place] for Graciela Dupree PT Lateral Epicondylitis Athletic Medicine - [address] of Elbow (Primary Dx) [place] [facility] [place] [address] Therapy [phone] [facility] Priscilla Sharpe (Work) [place] [address] Social History Tobacco Use Types Packs/Day Years [...] How often do you attend orthodoxy or uatsdin Patient refused 08/08/2019 services? Do [...] this encounter Progress Notes Graciela Dupree - 05/17/2009 5:00 PM CST Please refer to the daily flowsheet for treatment today and total treatment time. Does this patient have Medicare or Medicaid as primary or secondary insurance? NO S ENABLEMENT MANAGER documented in this encounter Plan of Treatment Not on filedocumented as of this encounter Procedures Procedure Name Priority Date/Time Associated Diagnosis Comme nts [facility] MANUAL THER Routine 05/17/2009 5:01 PM Lateral Epicondylit is of TECH,1+REGIONS,EA 15 SALES ENABLEMENT MANAGER Elbow MIN ZZC THERAPEUTIC Routine 05/17/2009 5:01 PM Lateral Epicondylit is of EXERCISES SALES ENABLEMENT MANAGER Elbow documented in this encounter Visit Diagnoses Diagnosis Lateral epicondylitis of elbow - Primary Lateral epicondylitis of elbow documented in this encounter Care Teams Drill Rig Operator Relationship Specialty Start Date End Date Danilo-Selma Mccoy, STAFF NURSE ANESTHETIST GLASS INSTALLER PCP - General 04/09/08 04/07/15 [address] [facility] [address] [place], [place] [address] documented as of this encounter
--- OUTSIDE RECORDS SUMMARY | 2022-01-17 22:18 | XMS_ITS | Encounter Summary ---
:1965 Author Organization [place] Address [address] [place] [address] Care Team Providers Name Role Phone Selma Good APRN [facility] Primary Care Provider [phone] Reason for Visit LINUS Physical Therapy (Routine) - Closed Specialty Diagnoses / Procedures Referred By Contact Refer red To Contact Kylah Howard MD [facility] OF NEURO LOGY MED [address] [facility] [address] [place] [address] Referral ID Status Reason Start Date Expiration Date Visits Requ ested Visits Authorized HP - NECK Closed 11/15/2009 06/10/2010 8 8 Encounter Details Date Type Department Care Team Description 12/17/2009 Therapy Visit [place] for Vadim Banda P Pietro Cervical Pain Athletic Medicine - Rehab Services (Prima ry Dx) [facility] Therapy [address] [place] [address] [place] [address] DAV[place] Se[place] [address] [phone] Social History Tobacco Use Types Packs/Day Years [...] How often do you attend gnosticist or confucianist Patient refused 08/08/2019 services? Do you belong to any clubs or organizations such as No 08/08/2019 gnosticist groups, NEXAGEs, fraternal or athletic groups, or school groups? [...] this encounter Progress Notes Vadim Banda - 12/17/2009 4:10 PM CDT Subjective: HPI Objective: System Physical Exam General ROS Assessment/Plan: SUBJECTIVE Subjective changes as noted by pt: Patient reports that she is having a good day today. Has been doing her exercises a lot more frequent at work. Still having throbbing suboccipital. Current Pain level: 3/10 Changes in function: Yes (See Goal flowsheet attached for changes in current functional level) Adverse reaction to treatment or activity: None OBJECTIVE Changes in objective findings: Yes, Moderate upper trap tension bilaterally. Good rhomboid tension. Fair scapular retraction, over activates upper traps. ASSESSMENT Megan continues to require intervention to meet STG and LTG's: PT Patient's symptoms are resolving. Response to therapy has shown an improvement in pain level, ROM , flexibility and function Progress made towards STG/LTG? Yes (See Goal flowsheet attached for updates on achievement of STG and LTG) PLAN Current treatment program is being advanced to more complex exercises. RIPRAP MAN/ATC plan: N/A Please refer to the daily flowsheet for treatment today, total treatment time and time spent performing 1:1 timed codes. documented in this encounter Plan of Treatment Not on filedocumented as of this encounter Procedures Procedure Name Priority Date/Time Associated Diagnosis Comme nts ZZC MANUAL THER Routine 12/17/2009 4:35 PM CDT Cervical Pain TECH,1+REGIONS,EA 15 MIN documented in this encounter Visit Diagnoses Diagnosis Cervical pain - Primary Cervicalgia documented in this encounter Care Teams Earth Burner Relationship Specialty Start Date End Date Selma Good, SEAN PODIATRIC FOOT AND ANKLE SPECIALIST PCP - General 04/09/08 04/07/[address] [place], [place] [address] documented as of this encounter
--- OUTSIDE RECORDS SUMMARY | 2022-01-17 22:18 | XMS_ITS | Encounter Summary ---
:1965 Author Organization [place] Address [address] [place] [address] Care Team Providers Name Role Phone Selma Good APRN FIRER HELPER Primary Care Provider [phone] Reason for Visit Reason Comments Sinus Problem Urgent Care Encounter Details Date Type Department Care Team Description 07/28/2008 Office Visit [place] [facility], Ashli Minor, hSine eckert Otitis Media Care MD (Primary Dx) [address] [place] [address] [place] Sal[place]ar [phone] DAV[place] [address] (Wo rk) Social History Tobacco Use [...] How often do you attend bahai or amish Patient refused 08/08/2019 services? Do [...] Sign Reading Time Taken Comments Blood Pressure 122/74 07/28/2008 6:00 PM FERRIS WHEEL OPERATOR Pulse - - Temperature 37.1 ??C (98.7 ??F) 07/28/2008 6:00 PM FERRIS WHEEL OPERATOR Respiratory Rate 16 07/28/2008 6:00 PM FERRIS WHEEL OPERATOR Oxygen Saturation - - Inhaled Oxygen Concentration - - Weight - - Height - - Body Mass Index - - documented in this encounter Progress Notes Blank Villanueva - 07/28/2008 6:00 PM CST SUBJECTIVE: Megan Choi is a 43 year old female presenting with a chief complaint of Upper Respiratory/ENT symptoms: Symptoms include: nasal congestion, ear pain right, sore throat and facial pain/pressure Onset how long ago? 5 days ago Course of illness is: worsening. Severity: moderate Treatment measures tried: OTC meds. Predisposing factors include none. ROS: 5-Point Review of Systems Negative-- Except as stated above. OBJECTIVE GENERAL APPEARANCE: healthy, alert and no distress EYES: EOMI, PERRL, conjunctiva clear HENT: ear canals normal, L TM with small amount of mucoid fluid, R TM erythematous and significantlybulging with a large purulent effusion. Mouth without ulcers or lesions. Mild pharyngeal erythema. NECK: supple, nontender, no lymphadenopathy RESP: lungs clear to auscultation - no rales, rhonchi or wheezes CV: regular rates and rhythm, normal S1 S2, no murmur noted SKIN: no suspicious lesions or rashes ASSESSMENT/PLAN 382.9F Acute Otitis Media (primary encounter diagnosis) Comment: R ear Plan: AMOXICILLIN 500 MG OR CAPS Discussed with patient that her TM may rupture given the amount of pus behind the membrane. IS WHEEL OPERATOR documented in this encounter Nursing Notes 07/28/2008 6:00 PM CST >> BLANK Newberry Jul 28, 2008 6:00 PM Patient presents with: Sinus Problem Urgent Care Initial BP 122/74 Temp (Src) 98.7 ??F (37.1 ??C) (Oral) Resp 16 Estimated Body mass index is 38.04 kg/(m^2) as calculated from: Height of 5' 2 (1.575 m) as of 04/13/08 Weight of 208 lb (94.348 kg) as of 04/13/08. BP completed using cuff size: large Blank Villanueva LPN documented in this encounter Plan of Treatment Not on filedocumented as of this encounter Visit Diagnoses Diagnosis Acute otitis media - Primary Unspecified otitis media documented in this encounter Care Teams Marine Engine Mechanic Relationship Specialty Start Date End Date Danilo-Selma Mccoy, SITE SAFETY COORDINATOR FIRER HELPER PCP - General 04/09/08 04/07/[address] [facility] [address] [address] [place], [place] [address] documented as of this encounter
--- OUTSIDE RECORDS SUMMARY | 2022-01-17 22:18 | XMS_ITS | Encounter Summary ---
:1965 Author Organization [place] Address [address] [place] [address] Care Team Providers Name Role Phone Selma Good APRN [employer] Primary Care Provider [phone] Reason for Visit LINUS Physical Therapy (Routine) - Closed Specialty Diagnoses / Procedures Referred By Contact Refer red To Contact Rayo Rouse PA-C [facility] [place] [address] [address] [place] [address] Referral ID Status Reason Start Date Expiration Date Visits Requ ested Visits Authorized HP - ELBOW Closed 03/22/2009 06/10/2009 17 15 Encounter Details Date Type Department Care Team Description 04/23/2009 Therapy Visit [place] for Graciela Dupree PT Lateral Epicondylitis Athletic Medicine - [address] of Elbow (Primary Dx) [facility] [place] [address] Therapy [phone] [facility] Priscilla Sharpe (Work) [place] [address] Social History Tobacco Use Types Packs/Day Years [...] How often do you attend episcopalian or hoahaoism Patient refused 08/08/2019 services? Do [...] this encounter Progress Notes Graciela Dupree - 04/23/2009 4:02 PM CST Please refer to the daily flowsheet for treatment today and total treatment time. Does this patient have Medicare or Medicaid as primary or secondary insurance? NO COORDINATOR documented in this encounter Plan of Treatment Not on filedocumented as of this encounter Procedures Procedure Name Priority Date/Time Associated Diagnosis Comme nts [facility] MANUAL THER Routine 04/23/2009 4:27 PM Lateral Epicondylit is of TECH,1+REGIONS,EA 15 EDI COORDINATOR Elbow MIN Z THERAPEUTIC Routine 04/23/2009 4:27 PM Lateral Epicondylit is of EXERCISES EDI COORDINATOR Elbow documented in this encounter Visit Diagnoses Diagnosis Lateral epicondylitis of elbow - Primary Lateral epicondylitis of elbow documented in this encounter Care Teams Packing Machine Feeder Relationship Specialty Start Date End Date Danilo-Selma Mccoy, ELECTRICAL CONTACTS ADJUSTER [employer] PCP - General 04/09/08 04/07/[address] [facility] [facility] [address] [place], [place] [address] documented as of this encounter
--- OUTSIDE RECORDS SUMMARY | 2022-01-17 22:18 | XMS_ITS | Encounter Summary ---
:1965 Author Organization [place] Address [address] [place] [address]. [place] [address] Care Team Providers Name Role Phone Selma Good APRN BIOINFORMATICS PROGRAMMER Primary Care Provider [phone] Encounter Details Date Type Department Care Team Description 02/24/2009 Historic Results [facility] Kylah Howard, [address] [place] [address] [address] [place], [place] [address] NEUROLOGY [phone] [address] [facility] [address] [place], [place] [address] (Wo rk) Social History [...] How often do you attend quaker or jewish Patient refused 08/08/2019 services? Do [...] Procedure Name Priority Date/Time Associated Comments Diagnosis RHEUMATOID FACTOR Routine 02/24/2009 2:38 PM Resu lts for this CDT procedure are i n the results section. LYME IGG AND IGM Routine 02/24/2009 2:38 PM Resul ts for this SCREEN CDT procedure are i n the results section. ERYTHROCYTE Routine 02/24/2009 2:38 PM Results f or this SEDIMENTATION RATE CDT procedure are in AUTO the results section. ANTINUCLEAR ANTIBODY Routine 02/24/2009 2:38 PM R esults for this SCREEN BY EIA CDT procedure are in the results section. documented in this encounter Results (ABNORMAL) Antinuclear antibody screen by EIA (02/24/2009 2:38 PM CDT) P athologist Signature FALGUNI Screen by 1.3 (H) 0 - 1.0 MISYS EIA Comment: Interpretation: Weakly Positive Specimen Anatomical Collection Method Collection Time Receive d Time (Source) Location / / Volume Laterality 02/24/2009 2:38 PM 9 2:32 CDT PM CDT Kylah Howard MD LAB - BLOOD ORDERABLES Performing Organization Address [facility] Code Phon e Number MISYS Rheumatoid factor (02/24/2009 2:38 PM CDT) athologist Signature Rheumatoid <7 0 - 14 MISYS Factor IU/mL Specimen Anatomical Collection Method Collection Time Receive d Time (Source) Location / / Volume Laterality 02/24/2009 2:38 PM 9 2:32 CDT PM CDT Kylah Howard MD LAB - BLOOD ORDERABLES Performing Organization Address [facility] Phon e Number MISYS Erythrocyte sedimentation rate auto (02/24/2009 2:38 PM CDT) athologist Signature Sed Rate 13 0 - 20 mm/h MISYS Specimen Anatomical Collection Method Collection Time Receive d Time (Source) Location / / Volume Laterality 02/24/2009 2:38 PM 9 2:32 CDT PM CDT Kylah Howard MD LAB - BLOOD ORDERABLES Performing Organization Address [facility] Phon e Number MISYS Lyme IgG and IgM screen (02/24/2009 2:38 PM CDT) [facility] Method Time Signature Specimen Serum MISYS Description Lyme Screen IgG Test value: MISYS and IgM <0.75....In terpretatio n: Negative... .If you highly suspect Lyme Comment: disease, consider submitting a repeat specimen in 4 to 6 weeks. Specimen Anatomical Collection Method Collection Time Receive d Time (Source) Location / / Volume Laterality 02/24/2009 2:38 PM 9 2:32 CDT PM CDT Kylah Howard MD LAB - BLOOD ORDERABLES Performing Organization Address [facility] Code Phon e Number MISYS documented in this encounter Visit Diagnoses Not on filedocumented in this encounter Care Teams Sample Sewer Relationship Specialty Start Date End Date Selma Good, SUPPLY CHAIN PLANNER BIOINFORMATICS PROGRAMMER PCP - General 04/09/08 04/07/[address] [address] [place], [place] [address] documented as of this encounter
--- OUTSIDE RECORDS SUMMARY | 2022-01-17 22:18 | XMS_ITS | Encounter Summary ---
:1965 Author Organization [place] Address [address] [place] [address] Care Team Providers Name Role Phone Selma Good APRN POLEYARD SUPERVISOR Primary Care Provider [phone] Encounter Details Date Type Department Care Team Description 10/24/2008 Orders Only [facility] Eag an Obesity; [address] Obesity, Unspecified [place] [address] Social History Tobacco Use Types Packs/Day [...] How often do you attend adventism or sikh Patient refused 08/08/2019 services? Do [...] documented as of this encounter Progress Notes Kvng Melendez - 10/24/2008 10:01 AM CDT Addended by: KVNG MELENDEZ on: 10/24/2008 10:01:29 AM Modules accepted: Orders documented in this encounter Plan of Treatment Not on filedocumented as of this encounter Procedures Procedure Name Priority Date/Time Associated Comments Diagnosis HCL GLYCATED Routine 10/24/2008 9:56 AM Obesity Results f or this HEMOGLOBIN CDT procedure are i n the results section. HCL GLUCOSE Routine 10/24/2008 9:56 AM Obesity Results f or this CDT procedure are i n the results section. CL AFF A.M.A. LIPID Routine 10/24/2008 9:56 AM Obesity Re sults for this PANEL CDT procedure are i n the results section. documented in this encounter Results (ABNORMAL) A.M.A. LIPID PANEL (10/24/2008 9:56 AM CDT) athologist Signature Cholesterol 183 0 - 200 [facility] mg/dL CLINIC LAB Comment: LDL Cholesterol is the primary guide to therapy: LDL-cholesterol goal in high risk patients is <100 mg/dL and in very high risk patients is <70 mg/dL. The NCEP recommends further evaluation of: patients with cholesterol <200 mg/dL if additional risk factors are present, cholesterol >240 mg/dL, triglycerides >150 mg/dL, or HDL <40 mg/dL. Triglycerides 132 0 - 150 mg/dL [facility] HDL Cholesterol 34 (L) 50 - 110 mg/dL [facility] LDL Cholesterol Calculated 123 0 - 129 mg/dL [facility] Comment: LDL Cholesterol is the primary guide to therapy: LDL-cholesterol goal in high risk patients is <100 mg/dL and in very high risk patients is <70 mg/dL. VLDL-Cholesterol 26 0 - 30 mg/dL [facility] Cholesterol/HDL Ratio 5.4 (H) 0.0 - 5.0 [facility] Specimen Anatomical Collection Method Collection Time Receive d Time (Source) Location / / Volume Laterality 10/24/2008 9:56 AM 9 CDT 10:01 AM CDT Selma Good APRN POLEYARD SUPERVISOR LABORATORY Performing Organization Address City/[facility]/ZIP Code Phon e Number [facility] [address] [place] [phone] [facility] LAB (ABNORMAL) GLUCOSE (10/24/2008 9:56 AM CDT) athologist Signature Glucose 119 (H) 60 - 99 [facility] mg/dL CLINIC LAB Specimen Anatomical Collection Method Collection Time Receive d Time (Source) Location / / Volume Laterality 10/24/2008 9:56 AM 9 CDT 10:01 AM CDT Selma Good APRN [facility] LABORATORY Performing Organization Address [facility] Phon e Number [facility] [address] [place] [address] [phone] [facility] LAB (ABNORMAL) HEMOGLOBIN A1C (10/24/2008 9:56 AM CDT) P athologist Signature Hemoglobin A1C 6.3 (H) 4.3 - 6.0 [facility] LAB Specimen Anatomical Collection Method Collection Time Receive d Time (Source) Location / / Volume Laterality 10/24/2008 9:56 AM 9 CDT 10:01 AM CDT Selma Good APRN, CNP LABORATORY Performing Organization Address City/State/ZIP Code Phon e Number [facility] [address] [facility] [place] [phone] [facility] documented in this encounter Visit Diagnoses Diagnosis Obesity Obesity, unspecified Obesity, unspecified documented in this encounter Care Teams Diffusion Operator Relationship Specialty Start Date End Date Selma Good APRN POLEYARD SUPERVISOR PCP - General 04/09/08 04/07/15 [address] [facility] [place] [address] documented as of this encounter
--- OUTSIDE RECORDS SUMMARY | 2022-01-17 22:18 | XMS_ITS | Encounter Summary ---
:1965 Author Organization [place] Address [address] [place] [address] Care Team Providers Name Role Phone Selma Good APRN [facility] Primary Care Provider [phone] Reason for Visit [facility] Physical Therapy (Routine) - Closed Specialty Diagnoses / Procedures Referred By Contact Refer red To Contact Kylah Howard MD [facility] NE[facility]O LOG[facility] MED [address] [address] [place] [address] Referral ID Status Reason Start Date Expiration Date Visits Requ ested Visits Authorized HP - NECK Closed 11/15/2009 06/10/2010 8 8 Encounter Details Date Type Department Care Team Description 12/14/2009 Therapy Visit [place] for Vadim Banda P Pietro Cervical Pain Athletic Medicine - Rehab Services (Prima ry Dx) [facility] Therapy [address] [place] [address] [place] [address] [place] Se[place] [address] [phone] Social History Tobacco Use Types Packs/Day Years [...] How often do you attend evangelical or mandaeism Patient refused 08/08/2019 services? Do you belong to any clubs or organizations such as No 08/08/2019 evangelical groups, [employer], fraternal or athletic groups, or school groups? [...] Diagnosis Comme nts ZZC MANUAL THER Routine 12/14/2009 4:33 PM CDT Cervical Pain TECH,1+REGIONS,EA 15 MIN documented in this encounter Visit Diagnoses Diagnosis Cervical pain - Primary Cervicalgia documented in this encounter Care Teams Transplant Worker Relationship Specialty Start Date End Date Danilo-Selma Mccoy, PIN SORTER AND BAGGER PACK PRESS OPERATOR PCP - General 04/09/08 04/07/[address] [facility] [facility] [facility] [address] [address] [place], [place] [address] documented as of this encounter
--- OUTSIDE RECORDS SUMMARY | 2022-01-17 22:18 | XMS_ITS | Encounter Summary ---
:1965 Author Organization [place] Address [address] [place] [address] Care Team Providers Name Role Phone Selma Good APRN [facility] Primary Care Provider [phone] Reason for Visit Reason Comments Foot Problems Pt fell in and injured her Rt foot. Pt was never seen in the clinic before but she could walk on it so figured she didn't brake anything. Pt is here today b ecause she is problems with her leg and thinks it could be because o f her Rt foot. Headache Encounter Details Date Type Department Care Team Description 12/15/2009 Office Visit [facility] [place], Foot Pain ( Primary Dx); [place] APRN Migraine Headaches [address] [facility] [place] [phone] [address] [facility] [phone] [facility] DAV[place] [id number] Social History Tobacco Use Types Packs/Day Years [...] How often do you attend congregation or hindu Patient refused 08/08/2019 services? Do [...] Sign Reading Time Taken Comments Blood Pressure 134/78 12/15/2009 4:52 PM CDT Pulse 72 12/15/2009 4:52 PM CDT Temperature - - Respiratory Rate - - Oxygen Saturation - - Inhaled Oxygen Concentration - - Weight 94.1 kg (207 lb 6 oz) 12/15/2009 4:52 PM CDT Height - - Body Mass Index 37.93 07/12/2009 4:06 PM ACCOUNTS RECEIVABLE COORDINATOR documented in this encounter Progress Notes Selma Good - 12/21/2009 4:15 PM CDT SUBJECTIVE: Megan Choi, a 44 year old female scheduled an appointment to discuss the following issues: 1. Foot Pain [729.5E], fell 9 months ago and since then, she has had constant pain on the plantar aspect of her foot. She was tolerating activity, but more recently the pain is increasing. 2. MIGRAINE HEADACHES Medical, social, surgical, and family histories reviewed. OBJECTIVE: BP 134/78 Pulse 72 Wt 207 lb 6 oz (94.065 kg) EXAM: GENERAL APPEARANCE: healthy, alert and no distress FOOT: Completely wnl. ASSESSMENT / PLAN: 729.5E Foot Pain (primary encounter diagnosis) Comment: Referred to podiatry Plan: 346.90G Migraine Headaches Comment: enrolled in migraine care pkg today Plan: MIGRAINE ACTION PLAN, MIGRAINE DISABILITY ASSESSMENT MIDAS There are no Patient Instructions on file for this visit. documented in this encounter Nursing Notes 12/15/2009 4:45 PM CDT >> ALISA RAMOS Wed Dec 15, 2009 4:57 PM Patient presents with: Foot Problems - Pt fell in Feb. and injured her Rt foot. Pt was never seen in the clinic before but she could walk on it so figured she didn't brake anything. Pt is here today because she is problemswith her leg and thinks it could be because of her Rt foot. Initial BP 134/78 Pulse 72 Wt 207 lb 6 oz (94.065 kg) Estimated Body mass index is 37.93 kg/(m^2) as calculated from the following: Height as of 07/12/09: 5' 2(1.575 m). Weight as of this encounter: 207 lb 6 oz(94.065 kg). BP completed using cuff size: regular - right arm. Alisa Ramos MA documented in this encounter Plan of Treatment Not on filedocumented as of this encounter Visit Diagnoses Diagnosis Foot pain - Primary Pain in limb Migraine headaches Migraine, unspecified, without mention o f intractable migraine without mention of status migrainosus documented in this encounter Care Teams Radiotelegraphist Relationship Specialty Start Date End Date Danilo-Selma Mccoy, SET UP INSPECTOR TRANS ROUTER PCP - General 04/09/08 04/07/15 [address] [facility] [place] [address] documented as of this encounter
--- OUTSIDE RECORDS SUMMARY | 2022-01-17 22:18 | XMS_ITS | Encounter Summary ---
:1965 Author Organization [place] Address [address] [place] [address] Care Team Providers Name Role Phone Selma Good APRN PAY STATION COLLECTOR Primary Care Provider [phone] Reason for Visit [facility] Physical Therapy (Routine) - Closed Specialty Diagnoses / Procedures Referred By Contact Refer red To Contact Rayo Rouse PA-C [facility] [place] [address] [address] [place] [address] Referral ID Status Reason Start Date Expiration Date Visits Requ ested Visits Authorized HP - ELBOW Closed 03/22/2009 06/10/2009 17 15 Encounter Details Date Type Department Care Team Description 03/29/2009 Therapy Visit [place] for Graciela Dupree PT Lateral Epicondylitis Athletic Medicine - [address] of Elbow (Primary Dx) [facility] [place] [address] Therapy [phone] [facility] Priscilla Sharpe (Work) [place] [address] Social History Tobacco Use Types Packs/Day Years [...] How often do you attend taoism or uatsdin Patient refused 08/08/2019 services? Do [...] this encounter Progress Notes Graciela Dupree - 03/29/2009 5:10 PM CDT Please refer to the daily flowsheet for treatment today and total treatment time. Does this patient have Medicare or Medicaid as primary or secondary insurance? NO documented in this encounter Plan of Treatment Not on filedocumented as of this encounter Procedures Procedure Name Priority Date/Time Associated Diagnosis Comme nts Z MANUAL THER Routine 03/29/2009 5:12 PM Lateral Epicondylit is of TECH,1+REGIONS,EA 15 CDT Elbow MIN ZZC THERAPEUTIC Routine 03/29/2009 5:12 PM Lateral Epicondylit is of EXERCISES CDT Elbow Z ULTRASOUND THERAPY Routine 03/29/2009 5:12 PM Lateral Epic ondylitis of CDT Elbow documented in this encounter Visit Diagnoses Diagnosis Lateral epicondylitis of elbow - Primary Lateral epicondylitis of elbow documented in this encounter Care Teams Food Service Tray Attendant Relationship Specialty Start Date End Date Danilo-Selma Mccoy, COUNTY BAILIFF PAY STATION COLLECTOR PCP - General 04/09/08 04/07/15 [address] [facility] [place] [address] documented as of this encounter
--- OUTSIDE RECORDS SUMMARY | 2022-01-17 22:18 | XMS_ITS | Encounter Summary ---
:1965 Author Organization [facility] Address [address] [place] [address] Care Team Providers Name Role Phone Selma Good APRN INDUSTRIAL SOCIOLOGIST Primary Care Provider [phone] Reason for Visit Reason Onset Date Comments Refill Request 08/04/2008 amoxicillin Encounter Details Date Type Department Care Team Description 08/04/2008 [address]ill [facility] [place] Selma Anthony Refill Request [address] [employer] JSEAN CNP (amoxicillin) [place] [id number] [address] [facility] [phone] [facility] [place] [address] (Wo rk) [...] How often do you attend synagogue or mormonism Patient refused 08/08/2019 services? Do [...] this encounter Miscellaneous Notes Telephone Encounter - АннаSuresh mathewie - 08/04/2008 9:38 AM CST This pt of Selma called because she misplaced the Amoxicillin she got from Urgent Care on 07/28/08 for a right ear infection. She had it on the counter and when she came home from work it was gone. She suspects that her cat knocked it off the counter. She has looked all over for it and can't find it.She doesn't want to stop taking it because she is still having symptoms. Note from Urgent Care visit: ASSESSMENT/PLAN 382.9F Acute Otitis Media (primary encounter diagnosis) Comment: R ear Plan: AMOXICILLIN 500 MG OR CAPS Discussed with patient that her TM may rupture given the amount of pus behind the membrane. Can you refill it for her? Please call her when done. [phone] OK to leave a message. Tash Montez RN NUT JELLY ROLLER documented in this encounter Plan of Treatment Not on filedocumented as of this encounter Visit Diagnoses Diagnosis Acute otitis media - Primary Unspecified otitis media documented in this encounter Care Teams Complex Director Relationship Specialty Start Date End Date Danilo-Selma Mccoy, TANKER SERVICEMAN INDUSTRIAL SOCIOLOGIST PCP - General 04/09/08 04/07/[address] [facility] [address] [place], [place] [address] documented as of this encounter
--- OUTSIDE RECORDS SUMMARY | 2022-01-17 22:18 | XMS_ITS | Encounter Summary ---
:1965 Author Organization [place] Address [address] [place] [address]. [place] [address] Care Team Providers Name Role Phone Selma Good APRN BUTCHER'S ASSISTANT Primary Care Provider [phone] Encounter Details Date Type Department Care Team Description 06/28/2009 Historic Results [facility] Kylah Howard, [address] [place] [address] [address] [place], [place] [address] NEUROLOGY [phone] [address] [facility] [address] [place], [place] [address] (Wo rk) Social History [...] How often do you attend sikh or gnosticist Patient refused 08/08/2019 services? Do [...] Associated Comments Diagnosis VITAMIN D DEFICIENCY Routine 06/28/2009 10:45 AM Results for this SCREENING PILE FABRIC KNITTER procedure are i n the results section. documented in this encounter Results (ABNORMAL) Vitamin D deficiency screening (06/28/2009 10:45 AM PILE FABRIC KNITTER) P athologist Signature 25 OH Vit D2 <5 ug/L MISYS 25 OH Vit D3 21 ug/L MISYS 25 OH Vit D <26 (L) 30 - 75 MISYS total ug/L Comment: Season, race, dietary intake, and treatm ent affect the concentration of 33-wlzlvfc-Rjajydk D. Values may decrea se during winter months and increase during summer months. Values less than 30 ug/L may indicate Vitamin D deficiency. Specimen Anatomical Collection Method Collection Time Receive d Time (Source) Location / / Volume Laterality 06/28/2009 10:45 06/28/2009 AM PILE FABRIC KNITTER 10:42 AM PILE FABRIC KNITTER Kylah Howard MD LAB - BLOOD ORDERABLES Performing Organization Address City/State/ZIP Code Phon e Number MISYS documented in this encounter Visit Diagnoses Not on filedocumented in this encounter Care Teams Emergency Department Rn Relationship Specialty Start Date End Date Danilo-Selma Mccoy, FISHING LINE WINDING MACHINE OPERATOR BUTCHER'S ASSISTANT PCP - General 04/09/08 04/07/15 [address] [facility] [place] [address] documented as of this encounter
--- OUTSIDE RECORDS SUMMARY | 2022-01-17 22:18 | XMS_ITS | Encounter Summary ---
:1965 Author Organization [facility] Address [address] [place] [address] Care Team Providers Name Role Phone Selma Good APRN ESOL TEACHER ASSISTANT Primary Care Provider [phone] Reason for Visit Reason Onset Date Comments Headache 12/16/2009 send migraine letter 1 month-01/15/10 Encounter Details Date Type Department Care Team Description 12/16/2009 Telephone [facility] E[facility] adarsh Good, Headache (send migraine [address] Selma Angeles APRN ESOL TEACHER ASSISTANT letter 1 month-01/15/10 ) [place] [phone] [facility] [phone] [facility] [place] [phone] (Wo rk) Social History Tobacco Use Types [...] How often do you attend voodoo or bahai Patient refused 08/08/2019 services? Do [...] this encounter Miscellaneous Notes Telephone Encounter - Hilary Higgins - 01/17/2010 11:54 AM CDT Letter mailed documented in this encounter Plan of Treatment Not on filedocumented as of this encounter Visit Diagnoses Not on filedocumented in this encounter Care Teams Legal Technician Relationship Specialty Start Date End Date Danilo-Selma Mccoy APRN ESOL TEACHER ASSISTANT PCP - General 04/09/08 04/07/[address] [place] [address] documented as of this encounter
--- OUTSIDE RECORDS SUMMARY | 2022-01-17 22:18 | XMS_ITS | Encounter Summary ---
:1965 Author Organization [place] Address [address] [place] [address] Care Team Providers Name Role Phone Selma Good APRN TAB MACHINE OPERATOR Primary Care Provider [phone] Reason for Visit [facility] Physical Therapy (Routine) - Closed Specialty Diagnoses / Procedures Referred By Contact Refer red To Contact Rayo Rouse PA-C [facility] [place] [address], [place] [address] Referral ID Status Reason Start Date Expiration Date Visits Requ ested Visits Authorized HP - ELBOW Closed 03/22/2009 06/10/2009 17 15 Encounter Details Date Type Department Care Team Description 04/01/2009 Therapy Visit [place] for Vadim Banda P T Lateral Epicondylitis Athletic Medicine - [facility] (Primary Dx) [facility] Therapy [address] [place] [address] [place] [address] [place] [address] [phone] Social History Tobacco Use Types Packs/Day Years [...] How often do you attend christian or mormon Patient refused 08/08/2019 services? Do you belong to any clubs or organizations such as No 08/08/2019 christian groups, 2CRisks, fraternal or athletic groups, or school groups? [...] this encounter Progress Notes Vadim Banda - 04/01/2009 4:55 PM CDT Please refer to the daily flowsheet for treatment today and total treatment time. Does this patient have Medicare or Medicaid as primary or secondary insurance? NO documented in this encounter Plan of Treatment Not on filedocumented as of this encounter Procedures Procedure Name Priority Date/Time Associated Diagnosis Comme nts ZZC MANUAL THER Routine 04/01/2009 4:56 PM Lateral Epicondylit is of TECH,1+REGIONS,EA 15 CDT Elbow MIN ZZC THERAPEUTIC Routine 04/01/2009 4:56 PM Lateral Epicondylit is of EXERCISES CDT Elbow ZC ULTRASOUND THERAPY Routine 04/01/2009 4:56 PM Lateral Epic ondylitis of CDT Elbow documented in this encounter Visit Diagnoses Diagnosis Lateral epicondylitis of elbow - Primary Lateral epicondylitis of elbow documented in this encounter Care Teams Plant Operator Relationship Specialty Start Date End Date Danilo-Selma Mccoy, SUPERVISOR AIRCRAFT MAINTENANCE TAB MACHINE OPERATOR PCP - General 04/09/08 04/07/[address] [facility] [address] [place], [place] [address] documented as of this encounter
--- OUTSIDE RECORDS SUMMARY | 2022-01-17 22:18 | XMS_ITS | Encounter Summary ---
:1965 Author Organization [place] Address [address] [place] [address] Care Team Providers Name Role Phone Selma Good APRN MATRIX WORKER Primary Care Provider [phone] Reason for Visit [facility] Physical Therapy (Routine) - Closed Specialty Diagnoses / Procedures Referred By Contact Refer red To Contact Rayo Rouse PA-C [facility] [place] [address] [address] Referral ID Status Reason Start Date Expiration Date Visits Requ ested Visits Authorized HP - ELBOW Closed 03/22/2009 06/10/2009 17 15 Encounter Details Date Type Department Care Team Description 06/01/2009 Therapy Visit [place] for Vadim Banda P T Lateral Epicondylitis Athletic Medicine - [facility] (Primary Dx) [facility] Therapy [address] [place] [address] [place] [address] [place] [address] [phone] Social History Tobacco Use Types Packs/Day Years [...] How often do you attend mosque or advent Patient refused 08/08/2019 services? Do you belong to any clubs or organizations such as No 08/08/2019 mosque groups, unions, fraternal or athletic groups, or [...] documented as of this encounter Progress Notes Margot Miller - 07/05/2009 5:28 PM CORRECTIONS CASEWORKER Addended by: MARGOT MILLER on: 07/05/2009 5:28:17 PM Modules accepted: Orders ECTIONS CASEWORKER Margot Miller - 07/05/2009 5:27 PM CST Megan Chio completed therapy on 06-01-09. Please refer to discharge report. ECTIONS CASEWORKER Vadim Banda - 06/01/2009 4:19 PM CST Please refer to the daily flowsheet for treatment today and total treatment time. Does this patient have Medicare or Medicaid as primary or secondary insurance? NO ECTIONS CASEWORKER documented in this encounter Plan of Treatment Not on filedocumented as of this encounter Procedures Procedure Name Priority Date/Time Associated Diagnosis Comme nts ZC MANUAL THER Routine 06/01/2009 4:21 PM Lateral Epicondylit is of TECH,1+REGIONS,EA 15 CORRECTIONS CASEWORKER Elbow MIN ZZC THERAPEUTIC Routine 06/01/2009 4:21 PM Lateral Epicondylit is of EXERCISES CORRECTIONS CASEWORKER Elbow documented in this encounter Visit Diagnoses Diagnosis Lateral epicondylitis of elbow - Primary Lateral epicondylitis of elbow documented in this encounter Care Teams Pipe Washer Relationship Specialty Start Date End Date Danilo-Selma Mccoy, LANDSCAPE DRAFTER MATRIX WORKER PCP - General 04/09/08 04/07/15 [address] [facility] [place] [address] documented as of this encounter
--- OUTSIDE RECORDS SUMMARY | 2022-01-17 22:18 | XMS_ITS | Encounter Summary ---
:1965 Author Organization [place] Address [address] [place] [address] Care Team Providers Name Role Phone Selma Good APRN GRADUATE STUDENT Primary Care Provider [phone] Reason for Visit Reason Comments UTI Encounter Details Date Type Department Care Team Description 07/12/2009 Office Visit [facility] Kleber Lima MD UTI (Urinary Tract Infection) (Primary D x); [place] [address] [facility] Positional Vertigo [address] [place] [address] [place] [phone] [place] [address] Social History Tobacco Use [...] How often do you attend denominational or rastafari Patient refused 08/08/2019 services? Do [...] Sign Reading Time Taken Comments Blood Pressure 128/72 07/12/2009 4:06 PM BLOCKER METAL BASE Pulse 68 07/12/2009 4:06 PM BLOCKER METAL BASE Temperature 36.8 ??C (98.2 ??F) 07/12/2009 4:06 PM BLOCKER METAL BASE Respiratory Rate - - Oxygen Saturation 100% 07/12/2009 4:06 PM BLOCKER METAL BASE Inhaled Oxygen Concentration - - Weight 95.7 kg (210 lb 14.4 oz) 07/12/2009 4:06 PM BLOCKER METAL BASE Height 157.5 cm (5' 2) 07/12/2009 4:06 PM BLOCKER METAL BASE Body Mass Index 38.57 07/12/2009 4:06 PM BLOCKER METAL BASE documented in this encounter Progress Notes Kleber Lima MD - 07/12/2009 4:41 PM CST SUBJECTIVE: Megan Choi is a 44 year old female who presents today for the following concerns: Has been having for last 6-8 weeks some dysuria and feeling of burning even when is not urinating.Not improving, and gets worse during discharge. Menses are becoming slowly erratic, with occasional hot flashes. No vaginal discharge between menses. Gets some yeast symtpoms a few days before and after cycle, and takes OTC monistat cream. Also, she has additional complaints of dizziness, feels like room is spinning when lies in bed, for last 2 months. Worsened after 06/28, when saw neuro for migraines (Takes 1 in AM and 3 at night.) Recent of mom. Currently migraines are under good control. ROS: C: NEGATIVE for fever, chills, change in weight Patient Active Problem List Diagnoses Code ??? Migraine Headaches 346.90G ??? GERD (Gastroesophageal Reflux Disease) 530.81K ??? Obesity 278.00J ??? Family History of GA (Myocardial Infarction) V17.3Y Past Medical History Diagnosis Date ??? 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 OMEPRAZOLE 20 MG OR CPDR ONE DAILY ??? GABAPENTIN None Entered ??? ASPIRIN 81 MG OR TABS ONE DAILY Allergies Allergen Reactions ??? Erythromycin The patient's social and family history were reviewed and updated today. OBJECTIVE: BP 128/72 Pulse 68 Temp (Src) 98.2 ??F (36.8 ??C) (Oral) Ht 5' 2 (1.575 m) Wt 210 lb 14.4 oz (95.664 kg) SpO2 100% LMP 06/21/2009 Exam: Constitutional: healthy, alert and no distress Head: Normocephalic. No masses, lesions, tenderness or abnormalities Neck: Neck supple. No adenopathy. Thyroid symmetric, normal size,, Carotids without bruits. ENT: ENT exam normal, no neck nodes or sinus tenderness Cardiovascular: negative, PMI normal. No lifts, heaves, or thrills. RRR. No murmurs, clicks gallops or rub Respiratory: negative, Percussion normal. Good diaphragmatic excursion. Lungs clear Gastrointestinal: Abdomen soft, non-tender. BS normal. No masses, organomegaly : Deferred Musculoskeletal: extremities normal- no gross deformities noted, gait normal and normal muscle tone Skin: no suspicious lesions or rashes Neuro: Cranial nerves II through XII are intact, and fundi are normal. No papilledema or photophobia. Neck supple with no signs of meningismus. No bruits. Normal deep tendon reflexes. Normal Romberg. Normal finger to nose testing. Gait is bilaterally symmetric. Upper extremity, lower extremity, and proximal muscle strength is normal. There are no fasciculations. ASSESSMENT:/PLAN: 599.0C UTI (Urinary Tract Infection) (primary encounter diagnosis) Comment: Plan: UA MICRO IF POSITIVE, BACTRIM DS 800-160 MG OR TABS Increase oral fluids. 386.11R Positional Vertigo Comment: Plan: ANTIVERT 25 MG OR TABS Advised to decrease gabapentin dose to 2 tabs QHS, in consultation with here neurologist, as this would seem to be offending agent. Advised to begin vertigo exercises and begin antivert trial. Patient is to follow up if condition worsens beyond its expected course or if new symptoms arise. She expressed understanding of this plan. Kleber Lima MD Internal Medicine and Pediatrics KER METAL BASE Anh Winn - 07/12/2009 4:12 PM CST Concerns with possible UTI & dizziness for 3 months Symptoms:frequency, burning and foul smell in urine Onset of symptoms: 8 weeks ago with gradual onset Severity: moderate. Discharge present?: yes yellowish Hematuria?: no. LMP: Patient's last menstrual period was 06/21/2009. This patient does not have a history of urinary tract infections. Patient denies long duration, rigors, flank pain, temperature > 101 degrees F. and Vomiting, significant nausea or diarrhea Patient agrees to chlamydia testing NO -- History Sexual Activity ??? Sexually Active: Yes -- Male partner(s) ??? Control/ Protection: Surgical Tubal WYATT Frey KER METAL BASE documented in this encounter Nursing Notes 07/12/2009 4:15 PM CST >> ANH WINN Mon Jul 12, 2009 4:15 PM Patient presents with: UTI Immunization History Administered Date(s) Administered Influenza 04/13/2008 TD (ADULT, 7+) 06/16/2005 Initial BP 128/72 Pulse 68 Temp (Src) 98.2 ??F (36.8 ??C) (Oral) Ht 5' 2 (1.575 m) Wt 210 lb 14.4 oz (95.664 kg) SpO2 100% Body mass index is 38.57 kg/(m^2).. BP completed using cuff size: yennifer Frey.Era, TIRE FABRIC IMPREGNATING RANGE TENDER documented in this encounter Plan of Treatment Not on filedocumented as of this encounter Procedures Procedure Name Priority Date/Time Associated Diagnosis Comme nts HCL UA MICRO IF Routine 07/12/2009 4:24 PM UTI (Urinary Tract Results for this POSITIVE BLOCKER METAL BASE Infection) procedure are i n the results section. CL AFF MICRO Routine 07/12/2009 4:24 PM Results f or this EXAM-URINE BLOCKER METAL BASE procedure are i n the results section. documented in this encounter Results (ABNORMAL) MICRO EXAM-URINE (07/12/2009 4:24 PM BLOCKER METAL BASE) P athologist Signature WBC Urine 5-10 (A) 0 - 2 /HPF [facility] RBC Urine O - 2 0 - 2 /HPF [facility] Squamous EPI Few FEW /LPF [facility] Bacteria Urine Few (A) NEG /HPF [facility] Specimen Anatomical Collection Method Collection Time Receive d Time (Source) Location / / Volume Laterality 07/12/2009 4:24 PM 0 4:28 BLOCKER METAL BASE PM BLOCKER METAL BASE Kleber Lima MD LABORATORY Performing Organization Address City/State/ZIP Code Phon e Number [address] [address] [facility] (ABNORMAL) UA MICRO IF POSITIVE (07/12/2009 4:24 PM BLOCKER METAL BASE) [facility] gist Method Time Signature Color Urine Yellow [facility] Appearance Urine Slightly [place] Cloudy [facility] Glucose Urine Negative NEG mg/dL [facility] Bilirubin Urine Negative NEG [facility] Ketones Urine Negative NEG mg/dL [facility] Specific [place] 1.015 1.003 - [place] Urine 1.035 [facility] Blood Urine Negative NEG [facility] pH Urine 5.5 5.0 - 7.0 [place] pH [facility] Protein Albumin Negative NEG mg/dL [place] Urine [facility] Urobilinogen 0.2 0.2 - 1.0 [place] Urine EU/dL [facility] Nitrite Urine Negative NEG [facility] Leukocyte Small (A) NEG [place] Esterase Urine [facility] Source Midstream [place] Urine [facility] Specimen Anatomical Collection Method Collection Time Receive d Time (Source) Location / / Volume Laterality 07/12/2009 4:24 PM 0 4:28 BLOCKER METAL BASE PM BLOCKER METAL BASE Kleber Lima MD LABORATORY Performing Organization Address City/State/ZIP Code Phon e Number [facility] [address] [facility] [place] [address] [facility] documented in this encounter Visit Diagnoses Diagnosis UTI (urinary tract infection) - Primary Urinary tract infection, site not specif ied Positional vertigo Benign paroxysmal positional vertigo documented in this encounter Care Teams Classer Relationship Specialty Start Date End Date Danilo-Selma Mccoy, REDUCTION FURNACE OPERATOR GRADUATE STUDENT PCP - General 04/09/08 04/07/15 [address] [facility] [place] [address] documented as of this encounter
--- OUTSIDE RECORDS SUMMARY | 2022-01-17 22:18 | XMS_ITS | Encounter Summary ---
:1965 Author Organization [place] Address [address] [place] [address] Care Team Providers Name Role Phone Selma Good APRN [facility] Primary Care Provider [phone] Reason for Visit [facility] Physical Therapy (Routine) - Closed Specialty Diagnoses / Procedures Referred By Contact Refer red To Contact Kylah Howard MD [facility]LETIC [facility] [address] [facility] [address] [place] [address] Referral ID Status Reason Start Date Expiration Date Visits Requ ested Visits Authorized HP - NECK Closed 11/15/2009 06/10/2010 8 8 Encounter Details Date Type Department Care Team Description 12/06/2009 Therapy Visit [place] for Sukhi Rust, P T Cervical Pain Athletic Medicine - [facility] [place] (Primary Dx) [facility] [address] [place] [address] [place] [address] [place] [id number] Social History Tobacco Use Types Packs/Day [...] organizations such as No 08/08/2019 lutheran groups, [employer], [employer] or athletic groups, or school groups? How [...] documented as of this encounter Progress Notes Sukhi Rust - 12/06/2009 5:07 PM CDT Subjective: HPI Objective: System Physical Exam General ROS Assessment/Plan: SUBJECTIVE Subjective changes as noted by pt: Patient was able to only get some of the exercises in due to a recent business trip. Feels that her coughing is making it more sore. Current pain level: 6/10 Changes in function: None Adverse reaction to treatment or activity: None OBJECTIVE Changes in objective findings: Yes, fair scapular control. Continues with some overactive UTs. Fair relaxation today. Decreased tenderness to bilateral suboccipitals. ASSESSMENT Megan continues to require intervention to meet STG and LTG's: PT No change of symptoms has been noted. Response to therapy has shown an improvement in muscle control and coordination Progress made towards STG/LTG? Yes (See Goal flowsheet attached for updates on achievement of STG and LTG) PLAN Current treatment program is being advanced to more complex exercises. CHIEF OF SERVICE/ATC plan: N/A Please refer to the daily flowsheet for treatment today, total treatment time and time spent performing 1:1 timed codes. documented in this encounter Plan of Treatment Not on filedocumented as of this encounter Procedures Procedure Name Priority Date/Time Associated Diagnosis Comme nts ZZC MANUAL THER Routine 12/06/2009 5:45 PM CDT Cervical Pain TECH,1+REGIONS,EA 15 MIN ZZC THERAPEUTIC Routine 12/06/2009 5:45 PM CDT Cervical Pain EXERCISES documented in this encounter Visit Diagnoses Diagnosis Cervical pain - Primary Cervicalgia documented in this encounter Care Teams Inventory Specialist Manager Relationship Specialty Start Date End Date Selma Good APRN PERFORMANCE IMPROVEMENT COORDINATOR PCP - General 04/09/08 04/07/15 [address] [facility] [place] [address] documented as of this encounter
--- OUTSIDE RECORDS SUMMARY | 2022-01-17 22:18 | XMS_ITS | Encounter Summary ---
:1965 Author Organization [place] Address [address] [place] [address] Care Team Providers Name Role Phone Selma Good CRYSTAL FLAT GRINDER SENIOR ARCHITECT/DESIGN MANAGER Primary Care Provider [phone] Encounter Details Date Type Department Care Team Description 03/15/2009 Orders Only [facility] Eag Selma Anthony, [address] [facility] CRYSTAL FLAT GRINDER SENIOR ARCHITECT/DESIGN MANAGER [place] [phone] [address] [facility] [phone] [facility] [place] [address] (Wo rk) Social History [...] How often do you attend tenriism or confucianist Patient refused 08/08/2019 services? Do [...] Procedure Name Priority Date/Time Associated Diagnosis Comme [facility] NCS MOTOR W/O F-WAVE, EACH Routine 03/08/2009 NERVE documented in this encounter Results MOTOR NERVE CONDUCT TEST (03/08/2009) Specimen (Source) Anatomical Location Collection Method / Collectio n Time Received Time / Laterality Volume 03/08/2009 Narrative This result has an attachment that is no t available. Selma Good APRN SENIOR ARCHITECT/DESIGN MANAGER PROCEDURES documented in this encounter Visit Diagnoses Not on filedocumented in this encounter Care Teams Package Sealer Relationship Specialty Start Date End Date Selma Good APRN SENIOR ARCHITECT/DESIGN MANAGER PCP - General 04/09/08 04/07/15 [address] [facility] [place] [address] documented as of this encounter
--- OUTSIDE RECORDS SUMMARY | 2022-01-17 22:18 | XMS_ITS | Encounter Summary ---
:1965 Author Organization [place] Address [address] [place] [address] Care Team Providers Name Role Phone Selma Good APRN [facility] Primary Care Provider [phone] Reason for Visit [facility] (Routine) - Closed Specialty Diagnoses / Procedures Referred By Contact Refer red To Contact Kylah Howard MD [facility] [address] [facility] [address] [place] [address] Referral ID Status Reason Start Date Expiration Date Visits Requ ested Visits Authorized HP - NECK Closed 11/15/2009 06/10/2010 8 8 Encounter Details Date Type Department Care Team Description 11/24/2009 Therapy Visit [facility]es for Sukhi Rust, P T Cervical Pain Athletic Medicine - [facility] (Primary Dx) [facility] [address] [place] [address] [place] [address] [place] [phone] Social History Tobacco Use Types Packs/Day [...] such as No 08/08/2019 jehovah's witness groups, [employer], [employer] or athletic groups, or school groups? How [...] this encounter Progress Notes Kirsten Taylor - 11/25/2009 7:25 AM CDT Subjective: Pertinent medical history includes: Overweight and migraines. Medical allergies: yes. Other surgeries include: Other. Current medications: Other. Patient is working in normal job with restrictions. Primary job tasks include: Prolonged sitting and repetitive tasks. Barriers include: None as reported by patient. Red flags: Pain at rest/night, calf pain, swelling, warmth and severe headaches. Objective: System Physical Exam General ROS Assessment/Plan: Sukhi Rust - 11/24/2009 4:59 PM CDT Subjective: Megan Choi is a 44 year old female with a cervical spine condition. Patient has a hx of bilateral shoulder and neck pain. Patient had a C5-C7 fusion in 2000. Pain has gotten worse in 2/10 for insidious reasons. Patient also states she is having headaches more often.. Patient reports pain: Cervical right side and cervical left side (UTs bilaterally). Radiates to: Head. Pain is described as aching and is constant and reported as 6/10. Associated symptoms: Headache and loss of motion/stiffness. Symptoms are exacerbated by rotating head and lifting and relieved by acti vity/movement and analgesics. Since onset symptoms are unchanged. Special tests: MRI (02/17.). General health as reported by patient is good. Objective: Standing Alignment: Cervical/Thoracic: Forward head Shoulder/UE: Rounded shoulders General deviations alignment: Slumped sitting. Cervical/Thoracic Evaluation AROM: AROM Cervical: Flexion: WNL Extension: 90% Rotation: Left: WNL Right: WNL Side Bend: Left: 75% pain on right Right: 50% pain on right and left Strength: Overactive bilateral UTs. Lower trap 4-/5, mid trap 4/5. Headaches: cervical (Constant (ave pain 6/10)) Cervical Myotomes: normal Cervical Palpation: Tenderness present at Left: Rhomboids; Upper Trap; Levator; Erector Spinae and Suboccipitals Tenderness present at Right: Rhomboids; Upper Trap; Levator; Erector Spinae and Suboccipitals General ROS Assessment/Plan: Patient is a 44 year old female with cervical complaints. Patient has the following significant findings with corresponding treatment plan. Diagnosis 1: Myofascial cervical and UT pain Pain - hot/cold therapy, manual therapy and education Decreased ROM/flexibility - manual therapy and therapeutic exercise Decreased strength - therapeutic exercise and therapeutic activities Impaired muscle performance - neuro re-education Decreased function - therapeutic activities Impaired posture - neuro re-education Previous and current functional limitations: (See Goal Flow Sheet for this information) Short term and detention goals: (See Goal Flow Sheet for this [...] good. Frequency: 2 X week Duration: for 4 weeks Discharge Plan: Achieve all LTG. Independent in home treatment program. Reach maximal therapeutic benefit. Please refer to the daily flowsheet for treatment today, total treatment time and time spent performing 1:1 timed codes. documented in this encounter Plan of Treatment Not on filedocumented as of this encounter Procedures Procedure Name Priority Date/Time Associated Diagnosis Comme nts ZZC MANUAL THER Routine 11/24/2009 5:38 PM CDT Cervical Pain TECH,1+REGIONS,EA 15 MIN ZZC THERAPEUTIC Routine 11/24/2009 5:38 PM CDT Cervical Pain EXERCISES documented in this encounter Visit Diagnoses Diagnosis Cervical pain - Primary Cervicalgia documented in this encounter Care Teams Media Strategist Relationship Specialty Start Date End Date Danilo-Selma Mccoy APRN POLICE RESERVES COMMANDER PCP - General 04/09/08 04/07/15 [address] [facility] [place] [address] documented as of this encounter
--- OUTSIDE RECORDS SUMMARY | 2022-01-17 22:18 | XMS_ITS | Encounter Summary ---
:1965 Author Organization [place] Address [address] [place] [address] Care Team Providers Name Role Phone Selma Good APRN THEATER SET PRODUCTION DESIGNER Primary Care Provider [phone] Reason for Visit Reason Onset Date Comments Erroneous encounter-disregard 04/14/2009 Encounter Details Date Type Department Care Team Description 04/14/2009 Refill [facility] Eag Selma Anthony Erroneous [address] JSEAN CNP encounter-disregard [place] [phone] [address] [facility] [phone] [facility] [place] [address] (Wo rk) Social [...] How often do you attend orthodox or religion Patient refused 08/08/2019 services? Do [...] Notes Telephone Encounter - Samra Reece - 04/14/2009 10:56 AM CST LRF 01/17/09 Omeprazole # 90 x 3. ER OPERATOR/GROUND LEADER documented in this encounter Plan of Treatment Not on filedocumented as of this encounter Visit Diagnoses Diagnosis GERD (gastroesophageal reflux disease) - Primary Esophageal reflux documented in this encounter Care Teams Database Administrator Relationship Specialty Start Date End Date Danilo-Selma Mccoy APRN THEATER SET PRODUCTION DESIGNER PCP - General 04/09/08 04/07/[address] [place] [address] documented as of this encounter
--- OUTSIDE RECORDS SUMMARY | 2022-01-17 22:18 | XMS_ITS | Encounter Summary ---
:1965 Author Organization [place] Address [address] [place] [address]. [place] [address] Care Team Providers Name Role Phone Selma Good APRN [address] MAGISTRATE Primary Care Provider [phone] Encounter Details Date Type Department Care Team Description 11/22/2009 Historic Results [facility] Kylah Howard, [address] [place] [address] [address] [place], [place] [address] NEUROLOGY [phone] [address] [facility] [address] [place], [place] [address] (Wo rk) Social History [...] How often do you attend judaism or mosque Patient refused 08/08/2019 services? Do [...] Procedure Name Priority Date/Time Associated Comments Diagnosis ANTINUCLEAR ANTIBODY Routine 11/22/2009 6:11 PM R esults for this SCREEN BY EIA CDT procedure are in the results section. documented in this encounter Results (ABNORMAL) Antinuclear antibody screen by EIA (11/22/2009 6:11 PM CDT) P athologist Signature FALGUNI Screen by 1.1 (H) 0 - 1.0 MISYS EIA Comment: Interpretation: Weakly Positive Specimen Anatomical Collection Method Collection Time Receive d Time (Source) Location / / Volume Laterality 11/22/2009 6:11 PM 0 6:05 CDT PM CDT Kylah Howard MD LAB - BLOOD ORDERABLES Performing Organization Address City/State/ZIP Code Phon e Number MISYS documented in this encounter Visit Diagnoses Not on filedocumented in this encounter Care Teams Ruffling Hemmer Automatic Relationship Specialty Start Date End Date Selma Good APRN [address] MAGISTRATE PCP - General 04/09/08 04/07/[address] [facility] [place] [address] documented as of this encounter
--- OUTSIDE RECORDS SUMMARY | 2022-01-17 22:19 | XMS_ITS | Encounter Summary ---
:1965 Author Organization [place] Address [address] [place] [address] Care Team Providers Name Role Phone Selma Good APRN ENDOSCOPY NURSE Primary Care Provider [phone] Encounter Details Date Type Department Care Team Description 02/19/2006 Historic Results INTERFACED REPORT Zachary Kirkland MD JOHN STARK MD PA [address] [facility] [address] [place] [address] (Wo rk) Social History Tobacco Use Types Packs/Day Years Used Date Never Assessed Alcohol Habits Answer Date Recorded How often [...] How often do you attend rastafari or zoroastrian Patient refused 08/08/2019 services? Do [...] Procedure Name Priority Date/Time Associated Comments Diagnosis CROSSMATCH RED CELLS Routine 02/19/2006 12:10 PM Results for this CDT procedure are i n the results section. documented in this encounter Results Crossmatch red cells (02/19/2006 12:10 PM CDT) [facility] Method Time Signature ABO O MISYS RH(D) Pos MISYS Antibody Neg MISYS Screen Blood Red Cells MISYS Component Type Units Ordered 2 MISYS Specimen 02/22/2006 MISYS Expires Unit Number [id number] MISYS Blood Red Blood MISYS Component Cells Type Leukocyte Reduced Status of REL FROM MISYS Unit ALLOC Unit Number [id number] MISYS Blood Red Blood MISYS Component Cells Type Leukocyte Reduced Status of REL FROM MISYS Unit ALLOC Specimen Anatomical Collection Method Collection Time Receive d Time (Source) Location / / Volume Laterality 02/19/2006 12:10 02/19/2006 PM CDT 12:19 PM CDT Zachary Kirkland MD LAB - BLOOD BANK PRODUCT ORD ER Performing Organization Address City/State/ZIP Code Phon e Number MISYS documented in this encounter Visit Diagnoses Not on filedocumented in this encounter Care Teams Residential Glazier Relationship Specialty Start Date End Date Selma Good, SEAN ENDOSCOPY NURSE PCP - General 04/09/08 04/07/[address] [place] [address] documented as of this encounter
--- OUTSIDE RECORDS SUMMARY | 2022-01-17 22:19 | XMS_ITS | Encounter Summary ---
:1965 Author Organization [place] Address [address] [place] [address] Care Team Providers Name Role Phone Unavailable Primary Care Provider Unavailable Encounter Details Date Type Department Care Team Description 02/19/2006 Operative Report Cora Galvan MD (General Scrap Worker) XXX RETIRED XXX [address] [facility] 8 [place], [place] [address] (Wo rk) Social History Tobacco Use Types [...] often do you attend latter day or mosque Patient refused 08/08/2019 services? Do [...] documented as of this encounter Progress Notes Cora Galvan - 02/20/2006 1:51 PM CDT PREOPERATIVE DIAGNOSIS: Degenerative disk disease, L5-S1. POSTOPERATIVE DIAGNOSIS: Degenerative disk disease, L5-S1. NAME OF OPERATION: Anterior exposure for diskectomy and bony fusion at L5-S1. CO-SURGEON: Zachary Kirkland MD SURGEON: Cora Galvan MD ESTIMATED BLOOD LOSS: 50 cc. OPERATIVE PROCEDURE: The patient was anesthetized without difficulty. The lower abdomen was prepped and draped in sterile fashion. An incision was made from just below the umbilicus to just above the pubis. The incision was carried down to the left rectus fascia which was incised longitudinally, and left rectus muscles were mobilized laterally. The retroperitoneal tissues were engaged under the arcuate ligament. I then approached the spinal cord between the iliac vessels. Bookwalter retractor was used. Caudal vein and artery were taken with double clips. I radiographically confirmed this level. Dr. Kirkland then did the diskectomy and bony fusion. Please see his dictation. At the end of the orthopedic portion of the procedure, we checked hemostasis and this was good. Ureter was not traumatized. Good pulses in the vessels. We then irrigated the tissues out with antibiotic solution, closed the left rectus fascia with interrupted 0 Vicryl, subcutaneous tissues in 3 layers with running 2-0 Vicryl, and the skin with subcuticular 3-0 Vicryl. Final sponge and needle counts were correct x2. Estimated blood loss was about 50 cc. The patient tolerated the procedure well and was then positioned prone for posterior fusion by Dr. Kirkland. CORA GALVAN MD Dictated by: CORA GALVAN MD MT: armin Document: [id number] LCN: [id number] DSC: Name: MR#: : Procedure Date: PADMINI CHOI [id number] 1965 02/19/2006 OPERATIVE REPORT Page 2 of 1 documented in this encounter Plan of Treatment Not on filedocumented as of this encounter Visit Diagnoses Not on filedocumented in this encounter
--- OUTSIDE RECORDS SUMMARY | 2022-01-17 22:19 | XMS_ITS | Encounter Summary ---
:1965 Author Organization [place] Address [address] [place] [address] Care Team Providers Name Role Phone Unavailable Primary Care Provider Unavailable Encounter Details Date Type Department Care Team Description 02/19/2006 Operative Report Hamzah Ramos MD (Production Assembly Operator) HAMZAH RAMOS MD PA [address] [facility] [address] [place] [address] (Wo rk) Social History Tobacco [...] often do you attend jehovah's witness or anabaptist Patient refused 08/08/2019 services? Do [...] documented as of this encounter Progress Notes Hamzah Ramos - 02/21/2006 8:03 AM CDT PREOPERATIVE DIAGNOSIS: Foraminal stenosis L5-S1 with disk space collapse failing previous decompression surgery. POSTOPERATIVE DIAGNOSIS: Foraminal stenosis L5-S1 with disk space collapse failing previous decompression surgery. NAME OF OPERATION: Anterior intercalary femoral ring allografting, anterior lumbar fusion application of cancellous allograft, application of Medtronic BMP, and distraction of the L5-S1 disk space. SURGEON: Hamzah Ramos MD CO-SURGEON: Kleber Galvan MD (for mobilization of the great vessels). ANESTHESIA: General. ESTIMATED BLOOD LOSS: 100 cc. OPERATIVE INDICATIONS: This patient has a bilateral lower extremity pain. She had previous decompression surgery posteriorly and this did not relieve her symptoms. The MRI suggests foraminal stenosis. She understands the nature of the procedure, risks, and benefits and the controversies associated with bone morphogenic protein. OPERATIVE PROCEDURE: The patient was prepped and draped supine on the operating table. Dr. Galvan performed a retroperitoneal approach. He will dictate a separate summary. Within the bifurcation of the great vessels, the L5-S1 disk space was opened with a #15 blade. This disk space was curretted down to healthy bone medially and laterally to the left and right and to a healthy endplate. Disk space was re-distracted by modified AcroMed PLIF spacers to 10 mm. The disk space was then freshened and then filled with cancellous allograft/BMP mixture. This was mixed in the following fashion: A 60 g of crushed cancellous bone was mixed with BMP (one-half small : 0.1 mg), this was placed on the collagen sponges, then morselized after 20 minutes and mixed with the cancellous bone. This was loaded into 3 mL syringes for administration. After re-distraction of the disk space, the bone was placed within the disk space, pushed to the left and right and then the femoral ring, filled with cancellous/BMP mixture was impacted into position and seated satisfactorily. Dr. Galvan performed the closure and will dictate a separate summary. PLAN : The patient is turned over for the closure part of the procedure. HAMZAH RAMOS MD Dictated by: HAMZAH RAMOS MD 151:1 MT: armin Document: [id number] LCN: [id number] DSC: Name: MR#: : Procedure Date: PADMINI CHOI [id number] 1965 02/19/2006 OPERATIVE REPORT Page 2 of 2 Hamzah Ramos - 02/21/2006 8:01 AM CDT PREOPERATIVE DIAGNOSES: Segmental instability with foraminal stenosis L5-S1 and radiculopathy. POSTOPERATIVE DIAGNOSES: Segmental instability with foraminal stenosis L5-S1 and radiculopathy. NAME OF OPERATION: Posterior lumbar fusion L5-S1 with pedicle screws, application of Medtronic BMP, and application of cancellous allograft. Primary foraminotomy for exposure of pedicle and placement of pedicle screws. Primary foraminotomy for placement of pedicle screws L5 left, L5 right, and S1 right. Revision laminotomy for placement of pedicle screw S1 left. Physician directed neuromonitoring (surface EMG). Intraoperative fluoroscopy (surgeon directed). SURGEON: Hamzah Ramos MD. ANESTHESIA: General. ESTIMATED BLOOD LOSS: 150 cc (250 cc combined anterior and posterior). COMPLICATIONS: None. OPERATIVE INDICATIONS: This patient has a severe foraminal stenosis with radiculopathy, anterior fusion and re-destruction has been done, but the patient needs posterior fusion and segmental fixation. Neuromonitoring, BMP, and pedicle screws were planned. Cancellous grafting was planned. The patient understands the nature of the procedure and the controversies of allograft, BMP, and pedicle screws. OPERATIVE PROCEDURE: The patient was prepped and draped prone on the four-mule driver. A longitudinal incision was made under direct x-ray control to the dorsal elements. The patient had obvious defect at L5-S1 on the left. The dorsal elements were cleaned off soft tissue investments and the patient had an obvious old laminotomy at L5-S1 on left. A revision laminotomy was created so as to palpate the pedicle which was done with a Leyva probe to define the pedicle in the mediolateral plane, which was further confirmed with the use of a C- arm. Thoracic pedicle probe was used to find the pedicle and then follow it into the S1 vertebral body. A 40 x 6.5 mm screw was placed and seated securely. Hemilaminotomy at L4-L5 on the left was then done in order to find the L5 pedicle. A Midas Chilango was used to thin the superior aspect of the superior articular process of L5. Reaching through this defect with the Leyva probe, the pedicle could be identified. Midas Chilango was used to create a banquet pilot hole and then using the C-arm for confirmation, the pedicle probe was placed into the center of the vertebral body. This was probed as all the other screw holes were with a Rebecca wire confirmed that it was inside the vertebral body. A 6.5, 45-mm screw was placed here and seated securely. Attention was then directed to the patient's right side. Primary laminotomies were done at L4-L5 and L5-S1 to identify the pedicle. Through these laminotomies, which were made with the Midas Chilango thinning the inferomedial aspects of the inferior articular process and crossing to the superior articular process below, a Leyva probe was used to identify the pedicle both proximally and distally and mediolaterally within a pedicle. A banquet pilot hole was made with the Midas Chilango and using the pedicle probe, a well-placed screw at each level was obtained. A 6.5-mm screw was used at S1 on the right and a 5.5 mm at L5 on the right. At this point of the case, the patient had 4 well-placed pedicle screws which were confirmed as satisfactory position on the AP and lateral. Each was tested with neuromonitoring and found to be above 10 mA guideline. The dorsal elements of the L5 and S1 were then freshened with a Midas Chilango and then the cancellous/BMP mixture was applied across the dorsal elements beneath the connecting robbie. When the connecting robbie was applied, a 30-mm robbie was used on each side and then the locking nuts were applied and secured and they seated securely. At the close of the case, the patient had a posterior fusion between the L5 and S1. Pedicle screws had been used on left and right, using neuromonitoring, a fluoroscopy, and laminotomies for satisfactory placement. A cancellous/BMP bone was placed across the dorsal elements. The cancellous allograft was mixed with BMP in the following manner. This was the same formula which was used anteriorly; 60 g of crushed cancellous bone was mixed with 2.1 mg of BMP (one-half of a small) and left to set. Approximately, one-quarter of this mixture was placed anteriorly within the disk space and one-half was placed posteriorly across the dorsal elements, one-quarter was wasted. The wound was closed using interrupted Ethibond re-attaching lumbodorsal fascia to bone. This was oversewn with a running PDS in 2 layers, 0 Vicryl in one layer, and a running 3-0 nylon in the skin. The patient tolerated the procedure well and left the operating room in satisfactory condition. There were no complications. PLAN: Full weightbearing and ambulation as tolerated. Assistive devices as necessary. Home in 2 to 4 days. Lovenox and CATTLE BROKER Dilaudid while in the hospital. HAMZAH RAMOS MD Dictated by: HAMZAH RAMOS MD 181:0 MT: armin Document: [id number] LCN: [id number] DSC: Name: MR#: : Procedure Date: PADMINI CHOI [id number] 1965 02/19/2006 OPERATIVE REPORT Page 3 of 3 documented in this encounter Plan of Treatment Not on filedocumented as of this encounter Visit Diagnoses Not on filedocumented in this encounter
--- OUTSIDE RECORDS SUMMARY | 2022-01-17 22:19 | XMS_ITS | Encounter Summary ---
:1965 Author Organization [place] Address [address] [place] [address] Care Team Providers Name Role Phone Selma Good APRN TWIST TESTER Primary Care Provider [phone] Encounter Details Date Type Department Care Team Description 04/21/[address] [facility] Eag an Routine General Medical [address] [facility] [place] [address] Care Facility [phone] Social History Tobacco Use Types Packs/Day Years [...] How often do you attend scientologist or judaism Patient refused 08/08/2019 services? Do [...] Name Priority Date/Time Associated Comments Diagnosis HCL COMPREHENSIVE Routine 04/21/2008 8:01 AM Routine General R esults for this METABOLIC PANEL GENERAL ASSIGNMENT REPORTER Medical Examination proce dure are in at a Health Care the results Facility section. CL AFF A.M.A. LIPID Routine 04/21/2008 8:01 AM Routine General Results for this PANEL GENERAL ASSIGNMENT REPORTER Medical Examination procedur e are in at a [facility] the results Facility section. documented in this encounter Results (ABNORMAL) A.M.A. COMPREHENSIVE MET.PANEL (04/21/2008 8:01 AM GENERAL ASSIGNMENT REPORTER) athologist Signature Sodium 142 133 - 144 [facility] mmol[facility]L [facility] Potassium 3.8 3.4 - 5.3 [facility] mmol/L [facility] Chloride 102 94 - 109 [facility] mmol/L [facility] Carbon Dioxide 27 20 - 32 [facility] mmol/L [facility] Anion Gap 12 6 - 17 [facility] mmol/L [facility] Glucose 126 (H) 60 - 99 [place] mg/dL [facility] Urea Nitrogen 9 5 - 24 [place] mg/dL [facility] Creatinine 0.66 0.52 - [place] 1.04 mg/dL [facility] Comment: New IDMS-traceable calibration beginning 10/10/07 GFR Estimate >90 >60 mL/min/1.7m2 [place] [facility] GFR Estimate If Black >90 >60 mL/min/1.7m2 [facility] Calcium 9.0 8.5 - 10.4 mg/dL [facility] Bilirubin Total 0.5 0.2 - 1.3 mg/dL [facility] Albumin 3.6 (L) 3.9 - 5.1 g/dL [facility] Comment: Reference range changed on 02/10. Protein Total 7.2 6.8 - 8.8 g/dL [place] [facility] Comment: As of 07, reference range reflects plasma specimen type. Alkaline Phosphatase 129 40 - 150 U/L [facility] ALT 24 0 - 50 U/L [facility] AST 21 0 - 45 U/L [facility] Specimen Anatomical Collection Method Collection Time Receive d Time (Source) Location / / Volume Laterality 04/21/2008 8:01 AM 8 8:03 GENERAL ASSIGNMENT REPORTER AM GENERAL ASSIGNMENT REPORTER Selma Good APRN TWIST TESTER LABORATORY Performing Organization Address City/State/ZIP Code Phon e Number [facility] [address] [place] [address] [facility] (ABNORMAL) A.M.A. LIPID PANEL (04/21/2008 8:01 AM GENERAL ASSIGNMENT REPORTER) P athologist Signature Cholesterol 190 0 - 200 [facility] mg/dL CLINIC LAB Comment: LDL Cholesterol is the primary guide to therapy: LDL-cholesterol goal in high risk patients is <100 mg/dL and in very high risk patients is <70 mg/dL. The NCEP recommends further evaluation of: patients with cholesterol <200 mg/dL if additional risk factors are present, cholesterol >240 mg/dL, triglycerides >150 mg/dL, or HDL <40 mg/dL. Triglycerides 155 (H) 0 - 150 mg/dL [facility] HDL Cholesterol 34 (L) 50 - 110 mg/dL [facility] LDL Cholesterol Calculated 125 0 - 129 mg/dL [facility] Comment: LDL Cholesterol is the primary guide to therapy: LDL-cholesterol goal in high risk patients is <100 mg/dL and in very high risk patients is <70 mg/dL. VLDL-Cholesterol 31 (H) 0 - 30 mg/dL [facility] Cholesterol/HDL Ratio 5.6 (H) 0.0 - 5.0 [facility] Specimen Anatomical Collection Method Collection Time Receive d Time (Source) Location / / Volume Laterality 04/21/2008 8:01 AM 8 8:03 GENERAL ASSIGNMENT REPORTER AM GENERAL ASSIGNMENT REPORTER Selma Good APRN, CNP LABORATORY Performing Organization Address City/State/ZIP Code Phon e Number [facility] [address] [facility] [place] [address] [facility] documented in this encounter Visit Diagnoses Diagnosis Routine general medical examination at a health care facility documented in this encounter Care Teams Substation Maintenance Technician Relationship Specialty Start Date End Date Selma Good APRN TWIST TESTER PCP - General 04/09/08 04/07/15 [address] [facility] [place] [id number] documented as of this encounter
--- OUTSIDE RECORDS SUMMARY | 2022-01-17 22:19 | XMS_ITS | Encounter Summary ---
:1965 Author Organization [place] Address [address] [place] [address] Care Team Providers Name Role Phone Selma Good APRN PIPE MACHINE OPERATOR Primary Care Provider [phone] Encounter Details Date Type Department Care Team Description 02/24/2006 Historic Income Tax Expert INTERFACED REPORT Interface, MD Brannon Social History Tobacco Use Types Packs/Day Years [...] How often do you attend sabianist or hoahaoism Patient refused 08/08/2019 services? Do [...] on filedocumented in this encounter Care Teams Store Protection Specialist Relationship Specialty Start Date End Date Danilo-Selma Mccoy APRN PIPE MACHINE OPERATOR PCP - General 04/09/08 04/07/15 [address] [facility] [place] [address] documented as of this encounter
--- OUTSIDE RECORDS SUMMARY | 2022-01-17 22:19 | XMS_ITS | Encounter Summary ---
:1965 Author Organization [place] Address [address] [place] [address] Care Team Providers Name Role Phone Selma Angelo APRN JUNIOR PROJECT COORDINATOR Primary Care Provider [phone] Reason for Visit Reason Comments Physical Encounter Details Date Type Department Care Team Description 04/13/2008 Office Visit [facility] Florentino, Lilo Gen eral Medical Examination at a Health Care Facility (Primary Dx); Pino Angeles APRN Screening Mammogram; [address] [facility] Screening for Malignant Neoplasm of the Cervix; [place] [address] [facility] Need for Prophylactic Vaccin ation and Inoculation Against Influenza; [phone] [facility] Migraine Headaches; [place] [address] GERD (Gastroesophageal Reflux Disease); [phone] Obesity (Work) Social History Tobacco Use Types Packs/Day [...] How often do you attend sikh or mu-ism Patient refused 08/08/2019 services? Do [...] Reading Time Taken Comments Blood Pressure 118/70 04/13/2008 3:30 PM SANDBLASTER SUPERVISOR Pulse 76 04/13/2008 3:30 PM SANDBLASTER SUPERVISOR Temperature - - Respiratory Rate - - Oxygen Saturation - - Inhaled Oxygen Concentration - - Weight 94.3 kg (208 lb) 04/13/2008 3:30 PM SANDBLASTER SUPERVISOR Height 157.5 cm (5' 2) 04/13/2008 3:30 PM SANDBLASTER SUPERVISOR Body Mass Index 38.04 04/13/2008 3:30 PM SANDBLASTER SUPERVISOR documented in this encounter Progress Notes Selma Angelo - 04/13/2008 3:46 PM CST SUBJECTIVE: CC: Padmini Choi is a 43 year old female who presents for routine physical exam with pap. HPI: 1. Famiily hx significant for type II diabetes, first degree relatives, all dx'ed at age 50s 2. Migraine HAs weekly, has tried imitrex with side effects of being knocked out, tylenol with minimal improvement, unable to take asprin or ibuprofen r/t hx of DVT. GE[place]ES unilaterl in temporal region with radiation to behind eyes. Has photophobia. International Headache Society Diagnostic criteria for Migraine with or without aura. At least two of 1-4, plus one of 5 or 6: yes 1. unilateral location yes 2. pulsating quality yes 3. moderate or severe intensity no 4. aggrevation by physical activity no 5. nausea and/or vomiting yes 6. photophobia and phonophobia yes At least 5 attacks occur fulfill the above criteria History, physical do not suggest underlying organic disease This patient does meet IHS diagnostic criteria for migraine [place] without aura. HISTORIES: Patient Active Problem List Diagnoses Code ??? Migraine Headaches 346.90G ??? GERD (Gastroesophageal Reflux Disease) 530.81K Past Medical History Diagnosis Date ??? DVT Femoral (Deep Venous Thrombosis) 04/17 post surgical, stopped coumadin 01/16 Past Surgical History Procedure Date ??? Spinal fusion,ant,ea adnl level 2004 L5, S1, Repeated in 2005 ??? Spinal fusion,ant,ea adnl level 2006 SI joints ??? Spinal fusion,ant,ea adnl level 2000 C5-C7 fused Current outpatient prescriptions Medication Sig ??? ASPIRIN 81 MG OR TABS ONE DAILY ??? OMEPRAZOLE 20 MG OR CPDR ONE DAILY ??? OMEPRAZOLE 20 MG OR CPDR ONE DAILY Allergies Allergen Reactions ??? Erythromycin History Social History ??? Marital Status: Spouse Name: N/A Number of Children: N/A ??? 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 Tobacco Use: Never ??? Alcohol Use: Yes Rare ??? Drug Use: No ??? Sexually Active: Yes -- Male partner(s) Control/ Protection: Surgical Tubal Other Topics Concern ??? Not on file Social History Narrative ??? No narrative on file Family History Problem Relation ??? Cardiovascular Mother [place] age 72 ??? Cardiovascular Father [place] early 40s, subsequent bipass ??? Diabetes Mother [...] Lipids Paternal Grandmother ??? Lipids Paternal Grandfather HEALTH MAINTENANCE: Health Maintenance Topic Date Due ??? Mammo annual screen( [facility] assigned) 04/13/1999 ??? Pap annual screening ([facility] assigned) 04/13/2005 ??? Tetanus immunization ( [facility] assigned) 04/13/2016 REVIEW OF OUTSIDE RECORDS: NO ROS: CONSTITUTIONAL:NEGATIVE for fever, chills, change in weight INTEGUMENTARY/SKIN: NEGATIVE for worrisome rashes, moles or lesions EYES: NEGATIVE for vision changes or irritation ENT/MOUTH: NEGATIVE for ear, mouth and throat problems RESP:NEGATIVE for significant cough or SOB BREAST: NEGATIVE for masses, tenderness or discharge CV: NEGATIVE for chest pain, palpitations or peripheral edema GI: NEGATIVE for nausea, abdominal pain, heartburn, or change in bowel habits : Q 3-4 wk menses with 5 days of bleeding. Occasional hot flashes at night. MUSCULOSKELETAL: NEGATIVE for significant arthralgias or myalgia NEURO: NEGATIVE for weakness, dizziness or paresthesias ENDOCRINE: NEGATIVE for temperature intolerance, skin/hair changes HEME/ALLERGY/IMMUNE: NEGATIVE for bleeding problems PSYCHIATRIC: NEGATIVE for changes in mood or affect BP 118/70 Pulse 76 Ht 5' 2 (1.575 m) Wt 208 lb (94.348 kg) LMP 03/28/2008 EXAM: GENERAL APPEARANCE: healthy, alert and no distress EYES: Eyes grossly normal to inspection, PERRL and conjunctivae and sclerae normal HENT: Normocephalic. L and R TMs pearly portillo with positive light reflex and without effusion or erythema. Nares without edema or rhinorrea. Oropharynx clear, no tonsillar hypertrophy or exudate noted. NECK: no adenopathy, no asymmetry, masses, or scars and thyroid normal to palpation RESP: lungs clear to auscultation - no rales, rhonchi or wheezes BREAST: normal without masses, tenderness or nipple discharge and no palpable axillary masses or adenopathy CV: regular rates and rhythm, normal S1 S2, no S3 or S4 and no murmur, click or rub LYMPHATICS: normal ant/post cervical and supraclavicular nodes ABDOMEN: soft, nontender, without hepatosplenomegaly or masses and bowel sounds normal (female): External genitalia including labia, urethra, anus pink and intact. Cowpers and Skenes glands palpated without tenderness or discharge. Vaginal reyes rugated, pink and intact. Cervix midline, pink and intact. Negative for cervical motion tenderness. Uterus palpated without gross abnormalities. MS: extremities normal- no gross deformities noted SKIN: no suspicious lesions or rashes NEURO: Normal strength and tone, mentation intact and speech normal PSYCH: mentation appears normal and affect normal/bright ASSESSMENT / PLAN: V70.0 Routine General Medical Examination at a Health Care Facility (primary encounter diagnosis) Comment: I have discussed frequency of pap screening, STD symptoms and prevention precautions, need for routine exercise, multivitamin, and the recommendations for calcium. Plan: A.M.A. LIPID PANEL, A.M.A. COMPREHENSIVE MET.PANEL, GLUCOSE V76.12B Screening Mammogram Comment: Plan: MAMMOGRAM, SCREENING V76.2 Screening for Malignant Neoplasm of the Cervix Comment: Discussed she qualifies for Q3yr paps. Plan: A THIN LAYER PAP SCREEN V04.81 Need for Prophylactic Vaccination and Inoculation Against Influenza Comment: Plan: FLU VACCINE, 3 YRS +, IM 346.90G Migraine Headaches Comment: Offered referral to neuro, will hold off at this time. Plan: 530.81K GERD (Gastroesophageal Reflux Disease) Comment: Plan: OMEPRAZOLE 20 MG OR CPDR 278.00J Obesity Comment: Discussed weight mgmt techniques including diet, exercise. Plan: I have discussed with patient the risks, benefits, medications, treatment options and modalities. I have instructed the patient to call or schedule a follow-up appointment if any problems or failureto improve. BLASTER SUPERVISOR Dafne Guerrero - 04/13/2008 3:36 PM CST HEALTH CARE MAINTENANCE: Ever had an abnormal pap? Yes - date: 1984, Cryo done and normal since Menses are every 21-25 days; lasting for 5 days. Flow is med. Menstrual Pain? Day 1 cramping PMS symptoms? Irritable Have you had a pneumonia shot? Not applicable How many dairy products do you eat daily? 0, intolerant to dairy (milk) Have you had an eye exam in the past year? NO, lasik done this past year Dental exam in the last year ? Yes STD screening indicated No Health Maintenance Reviewed: Health Maintenance Topic Date Due ?Pap annual screening ([facility] assigned) ?Tetanus q10 yr SAFETY: ======= Do you exercise? NO If yes, how many times per week? Do you feel safe in your relationship(s)? YES Do you have a gun in your home? No Do you wear your seatbelt regularly? YES Do you use sunscreen? NO Are you fasting today? No Ivette Allan M.A. BLASTER SUPERVISOR documented in this encounter Plan of Treatment Not on filedocumented as of this encounter Procedures Procedure Name Priority Date/Time Associated Diagnosis Comme nts HCL PAP THIN LAYER Routine 04/13/2008 12:00 AM Screening for R esults for this SCREEN SANDBLASTER SUPERVISOR Malignant Neoplasm procedure are in of the Cervix the results section. documented in this encounter Results A THIN LAYER PAP SCREEN (04/13/2008 12:00 AM SANDBLASTER SUPERVISOR) Component Value Ref Test Analysis Performed At [facility] Range Method Time Signature PAP OTHER-NIL EM>40 COPATH Copath Report COPATH Patient Name: PADMINI CHOI MR#: [id number] Specimen #: [id number] Collected: 04/13/2008 Received: 04/14/2008 Reported: 04/16/2008 16:11 Ordering Phy(s): SELMA ANGELO SPECIMEN/STAIN PROCESS: Pap thin layer prep screening ([facility]) ? Pap-Cyto x 1, Reflex HPV x 1 SOURCE: Cervical, endocervical ---- Pap thin layer prep screening ([facility]) SPECIMEN ADEQUACY: Satisfactory for evaluation. -Transformation zone component present. CYTOLOGIC INTERPRETATION: Other: Negative for Intraepithelial Lesion or Malignancy, Se e interpretation/Result. ? -Endometrial cells present. -Endometrial cells after age 40, particularly out of phase o r after menopause, may be associated with benign endometrium, hormon al alterations, and less commonly, endometrial abnormalities. Electronically signed out by: Todd Mckeon M.D. [facility] CLINICAL HISTORY: LMP: 03/28/08 TESTING LAB LOCATION: [address] ??[address] COLLECTION SITE: Client: ??[facility] Location: [facility] (R) Specimen (Source) Anatomical Collection Method Collection Time Re ceived Time Location / / Volume Laterality 04/13/2008 04/14/2008 4:20 PM SANDBLASTER SUPERVISOR Selma Angelo APRN, CNP LABORATORY Performing Organization Address City/State/ZIP Code Phon e Number [place] documented in this encounter Visit Diagnoses Diagnosis Routine general medical examination at a health care facility - Primary Screening mammogram Other screening mammogram Screening for malignant neoplasm of the cervix Need for prophylactic vaccination and in oculation against influenza Migraine headaches Migraine, unspecified, without mention o f intractable migraine without mention of status migrainosus GERD (gastroesophageal reflux disease) Esophageal reflux Obesity Obesity, unspecified documented in this encounter Care Teams [place] Relationship Specialty Start Date End Date Selma Angelo APRN CNP PCP - General 04/09/08 04/07/[address] [facility] [address] documented as of this encounter
--- OUTSIDE RECORDS SUMMARY | 2022-01-17 22:19 | XMS_ITS | Encounter Summary ---
:1965 Author Organization [place] Address [address] [place] [address] Care Team Providers Name Role Phone Selma Good STRAW BALER FIELD CHECKER Primary Care Provider [phone] Encounter Details Date Type Department Care Team Description 04/21/2008 Results Only [facility] Eag Selma Anthony, [address] [facility] STRAW BALER FIELD CHECKER [place] [address] [address] [facility] [phone] [facility] [place] [address] (Wo rk) Social [...] How often do you attend hindu or yazidi Patient refused 08/08/2019 services? Do [...] Procedure Name Priority Date/Time Associated Diagnosis Comme [facility] MAMMO SCREEN Routine 04/21/2008 10:29 AM Resul ts for this BILATATERAL, INCL RECYCLING CENTER OPERATOR procedure are in CAD WHEN PERF the results section. documented in this encounter Results SCREENING MAMMOGRAPHY DIGITAL (BILAT) (04/21/2008 10:29 AM RECYCLING CENTER OPERATOR) Specimen (Source) Anatomical Collection Method Collection Time Re ceived Time Location / / Volume Laterality 04/21/2008 10:29 AM RECYCLING CENTER OPERATOR Impressions RADIOLOGY RESULTS - 04/21/2008 11:04 AM RECYCLING CENTER OPERATOR SCREENING MAMMOGRAM, BILATERAL, DIGITAL w/ CAD BREAST SYMPTOMS/COMPARISON:Routine. 09-29 BREAST PARENCHYMAL PATTERN: Heterogeneou sly dense. COMMENTS: Negative. IMPRESSION: BI-RADS 1, NEGATIVE. Selma Good APRN, CNP SPECIAL IMAGING STUDIES Performing Organization Address City/State/ZIP Code Phon e Number RADIOLOGY RESULTS documented in this encounter Visit Diagnoses Not on filedocumented in this encounter Care Teams Router Tender Relationship Specialty Start Date End Date Selma Good APRN CNP PCP - General 04/09/08 04/07/[address] [facility] [address] [address] [place], [place] [address] documented as of this encounter
--- OUTSIDE RECORDS SUMMARY | 2022-01-17 22:19 | XMS_ITS | Encounter Summary ---
:1965 Author Organization [place] Address [address] [place] [address] Care Team Providers Name Role Phone Unavailable Primary Care Provider Unavailable Encounter Details Date Type Department Care Team Description 02/19/2006 Discharge Summary Hamzah Ramos M D (Care Asst) HAMZAH RAMOS MD PA [address] [facility] [address] [place] [address] (Wo rk) Social History Tobacco [...] How often do you attend evangelical or evangelical Patient refused 08/08/2019 services? Do you belong to any clubs or organizations such as No 08/08/2019 evangelical groups, unions, fraternal or athletic groups, or [...] this encounter Progress Notes Hamzah Ramos - 07/05/2006 9:14 AM INTRUSION ANALYST FINAL FINAL DISCHARGE DIAGNOSES: Intractable pain, discogenic and radicular pain, L5- S1 disc space. HOSPITAL COURSE: The patient was taken to the operating for an anterior and posterior fusion. The patient's postoperative course was marked by fever and atelectasis, but no current complication. She was managed with internal medicine's help and did very well. Ultimately discharged home on oral analgesics, to be followed as an outpatient. Electronically signed on 07/05/2006 09:13 by HAMZAH RAMOS MD MT: [place] Name: PADMINI CHOI MRN: [id number] Account: [id number] : 1965 Admit Date: Discharge Date: 02/24/2006 Document: [id number] cc: Jose Colin MD USION ANALYST documented in this encounter Plan of Treatment Not on filedocumented as of this encounter Visit Diagnoses Not on filedocumented in this encounter
--- OUTSIDE RECORDS SUMMARY | 2022-01-17 22:19 | XMS_ITS | Encounter Summary ---
:1965 Author Organization [place] Address [address] [place] [address] Care Team Providers Name Role Phone Selma Good APRN TERMINAL PRESS OPERATOR Primary Care Provider Encounter Details Date Type Department Care Team Description 02/21/2006 Historic Results INTERFACED REPORT Zachary Kirkland MD JOHN STARK MD PA [address] [facility] [address] [place] [address] (Wo rk) Social History Tobacco [...] How often do you attend holiness or sikh Patient refused 08/08/2019 services? Do [...] Priority Date/Time Associated Diagnosis Comme nts HEMOGLOBIN Routine 02/21/2006 6:10 AM Results f or this CDT procedure are i n the results section . documented in this encounter Results Hemoglobin (02/21/2006 6:10 AM CDT) P athologist Signature Hemoglobin 11.8 11.7 - 15.7 MISYS g/dL Specimen (Source) Anatomical Collection Method Collection Time Re ceived Time Location / / Volume Laterality 02/21/2006 6:10 AM 6 CDT Zachary Kirkland MD LAB - BLOOD ORDERABLES Performing Organization Address City/State/ZIP Code Phon e Number MISYS documented in this encounter Visit Diagnoses Not on filedocumented in this encounter Care Teams Ring Sorter Relationship Specialty Start Date End Date Danilo-Selma Mccoy APRN TERMINAL PRESS OPERATOR PCP - General 04/09/08 04/07/[address] [facility] [address] [address] [place], [place] [id number] documented as of this encounter
--- OUTSIDE RECORDS SUMMARY | 2022-01-17 22:19 | XMS_ITS | Encounter Summary ---
:1965 Author Organization [place] Address [facility] [place] [address] Care Team Providers Name Role Phone Unavailable Primary Care Provider Unavailable Encounter Details Date Type Department Care Team Description 02/20/2006 Results Only [facility] Hamzah Kirkland MD [facility] Radiology Results HAMZAH KIRKLAND MD PA [address] [facility] [address] [place] [address] (Wo rk) Social History Tobacco [...] How often do you attend catholic or taoist Patient refused 08/08/2019 services? Do [...] Procedure Name Priority Date/Time Associated Diagnosis Comme [facility] X-RAY LUMBAR Routine 02/20/2006 8:33 PM Result s for this SPINE 2-3 VIEWS CDT procedure ar e in the results section. documented in this encounter Results X-RAY LUMBAR SPINE 2 VW (02/20/2006 8:33 PM CDT) Specimen (Source) Anatomical Collection Method Collection Time Re ceived Time Location / / Volume Laterality 02/20/2006 8:33 PM CDT Impressions RADIOLOGY RESULTS - 02/21/2006 4:04 PM C DT ?? THREE-VIEW LUMBAR SPINE, 02/20/06 ? HISTORY: ??Follow up spine surgery. ?? FINDINGS: ??There are a pedicular robbie an d screws at L5-S1. ??The remaining disk spaces are maintained. ?? No evidence for spondylolisthesis. Hamzah Kirkland MD GENERAL IMAGING Performing Organization Address City/State/ZIP Code Phon e Number RADIOLOGY RESULTS documented in this encounter Visit Diagnoses Not on filedocumented in this encounter
--- OUTSIDE RECORDS SUMMARY | 2022-01-17 22:19 | XMS_ITS | Encounter Summary ---
:1965 Author Organization [facility] Address [address] [place] [address] Care Team Providers Name Role Phone Selma Good APRN WHOLESALE BUYER Primary Care Provider [phone] Encounter Details Date Type Department Care Team Description 02/20/2006 Historic Results [facility] Urgent Adriana Montesinos, Stephanie Azevedo MD [address] [address] [place] [address] (Wo rk) Social History Tobacco Use [...] How often do you attend [employer] or taoism Patient refused 08/08/2019 services? Do [...] for the very basics like Not h zudro at all 08/08/2019 food, housing, medical care, [...] Procedure Name Priority Date/Time Associated Comments Diagnosis ROUTINE UA WITH Routine 02/20/2006 1:30 PM Result s for this MICROSCOPIC CDT procedure are i n the results section. URINE CULTURE Routine 02/20/2006 1:30 PM Results for this CDT procedure are i n the results section. HEMOGRAM DIFFERENTIAL Routine 02/20/2006 12:00 Re sults for this AND PLATELET PM CDT procedure are i n the results section. HEMOGLOBIN Routine 02/20/2006 6:15 AM Results f or this CDT procedure are i n the results section. documented in this encounter Results (ABNORMAL) Routine UA with microscopic (02/20/2006 1:30 PM CDT) Component Value Ref Test Analysis Performed At [facility] gist Range Method Time Signature Source Unspecified MISYS Urine Color Urine Yellow MISYS Appearance Urine Clear MISYS Glucose Urine 70 (A) NEG MISYS mg/dL Bilirubin Urine Negative NEG MISYS Ketones Urine Negative NEG MISYS mg/dL Specific [place] 1.009 1.003 - MISYS Urine 1.035 Blood Urine Negative NEG MISYS pH Urine 5.5 5.0 - MISYS 7.0 pH Protein Albumin Negative NEG MISYS Urine mg/dL Urobilinogen Normal 0.0 - MISYS mg/dL 2.0 mg/dL Nitrite Urine Negative NEG MISYS Leukocyte Negative NEG MISYS Esterase Urine WBC Urine 5 (H) 0 - 2 MISYS /HPF RBC Urine 2 0 - 2 MISYS /HPF Mucous Urine Present (A) NEG /LPF MISYS Specimen Anatomical Collection Method Collection Time Receive d Time (Source) Location / / Volume Laterality 02/20/2006 1:30 PM 6 CDT 11:[address] Montesinos MD LAB - URINE ORDERABLES Performing Organization Address City/[facility]/ZIP Code Phon e Number MISYS Urine culture (02/20/2006 1:30 PM CDT) TonZof Method Time Signature Specimen Unspecified MISYS Description Urine Culture Micro No growth MISYS Micro Report FINAL [id number] MISYS Status Specimen Anatomical Collection Method Collection Time Receive d Time (Source) Location / / Volume Laterality 02/20/2006 1:30 PM 6 CDT 11:[address] Montesinos MD LAB - MICRO GENERAL ORDERABL ES Performing Organization Address City/[facility]/ZIP Code Phon e Number MISYS (ABNORMAL) Hemogram differential and platelet (02/20/2006 12:00 PM CDT) [facility]of Method Time Signature MCV 91 78 - 100 MISYS fl MCH 30.7 26.5 - MISYS 33.0 pg MCHC 33.6 32.0 - MISYS 36.0 g/dL RDW 13.9 10.0 - MISYS 15.0 % WBC 12.6 (H) 4.0 - MISYS 11.0 10e9/L RBC Count 4.12 3.8 - 5.2 MISYS 10e12/L Hemoglobin 12.6 11.7 - MISYS 15.7 g/dL Hematocrit 37.6 35.0 - MISYS 47.0 % % Neutrophils 78 (H) 40 - 75 % MISYS % Lymphocytes 10 (L) 20 - 48 % MISYS % Monocytes 11 0 - 12 % MISYS % Eosinophils 1 0 - 6 % MISYS % Basophils 0 0 - 2 % MISYS Platelet Count 202 150 - 450 MISYS 10e9/L Absolute 9.9 (H) 1.6 - 8.3 MISYS Neutrophil 10e9/L Absolute 1.3 0.8 - 5.3 MISYS Lymphocytes 10e9/L Absolute 1.3 0.0 - 1.3 MISYS Monocytes 10e9/L Absolute 0.1 0.0 - 0.7 MISYS Eosinophils 10e9/L Absolute 0.1 0.0 - 0.2 MISYS Basophils 10e9/L Diff Method Automated MISYS Method Specimen Anatomical Collection Method Collection Time Receive d Time (Source) Location / / Volume Laterality 02/20/2006 12:00 02/20/2006 PM CDT 10:[address] Montesinos MD LAB - BLOOD ORDERABLES Performing Organization Address City/State/ZIP Code Phon e Number MISYS Hemoglobin (02/20/2006 6:15 AM CDT) P athologist Signature Hemoglobin 12.4 11.7 - 15.7 MISYS g/dL Specimen (Source) Anatomical Collection Method Collection Time Re ceived Time Location / / Volume Laterality 02/20/2006 6:15 AM 6 CDT Zachary Kirkland MD LAB - BLOOD ORDERABLES Performing Organization Address City/State/ZIP Code Phon e Number MISYS documented in this encounter Visit Diagnoses Not on filedocumented in this encounter Care Teams Polisher Sand Relationship Specialty Start Date End Date Selma Good, CONFIGURATOR WHOLESALE BUYER PCP - General 04/09/08 04/07/15 [address] [facility] [facility] [address] [place], [place] [address] documented as of this encounter
--- OUTSIDE RECORDS SUMMARY | 2022-01-17 22:19 | XMS_ITS | Encounter Summary ---
:1965 Author Organization [facility] Address [address] [place] [address] Care Team Providers Name Role Phone Unavailable Primary Care Provider Unavailable Encounter Details Date Type Department Care Team Description 02/19/2006 Results Only [facility] Hamzah Kirkland MD [facility] Radiology Results HAMZAH KIRKLAND MD PA [address] [facility] [address] [place] [address] (Wo rk) Social History Tobacco [...] How often do you attend restoration or jainism Patient refused 08/08/2019 services? Do [...] Priority Date/Time Associated Diagnosis Comme nts HC FLUOROSCOPY, UP Routine 02/19/2006 4:35 PM Res ults for this TO 1 HOUR CDT procedure are i n the results section. HC X-RAY SPINE 1 Routine 02/19/2006 2:39 PM Resul ts for this VIEW CDT procedure are i n the results section. documented in this encounter Results FLUOROSCOPE EXAMINATION (02/19/2006 4:35 PM CDT) Specimen (Source) Anatomical Collection Method Collection Time Re ceived Time Location / / Volume Laterality 02/19/2006 4:35 PM CDT Impressions RADIOLOGY RESULTS - 02/26/2006 3:17 PM C DT ?? INTRAOPERATIVE FLUOROSCOPY, 02/19/06 ?? HISTORY: ??Anterior and posterior spinal fusion L3-L5. ? 30 seconds of fluoroscopy time was provi ded. ??Two spot radiographs demonstrate the placement of bilateral L 5 and S1 pedicle screws. ? Dictated: ??02/20/06 Hamzah Kirkland MD SPECIAL IMAGING STUDIES Performing Organization Address City/State/ZIP Code Phon e Number RADIOLOGY RESULTS X-RAY SPINE ONE VIEW (02/19/2006 2:39 PM CDT) Specimen (Source) Anatomical Collection Method Collection Time Re ceived Time Location / / Volume Laterality 02/19/2006 2:39 PM CDT Impressions RADIOLOGY RESULTS - 02/20/2006 12:43 PM CDT ?? PORTABLE LUMBAR SPINE IN OR, 02/19/06 ?? Portable spine reveals a needle over the L5-S1 disc space. Hamzah Kirkland MD GENERAL IMAGING Performing Organization Address City/State/ZIP Code Phon e Number RADIOLOGY RESULTS documented in this encounter Visit Diagnoses Not on filedocumented in this encounter
--- OUTSIDE RECORDS SUMMARY | 2022-01-17 22:20 | XMS_ITS | Encounter Summary ---
:1965 [facility] Address [address] [place] [address] Care Team Providers Name Role Phone Jose Colin DO Primary Care Provider [phone] Encounter Details Date Type Department Care Team Description 01/27/2008 Orders Only [facility] DVT (Deep Venous [address] Thrombosis) [place], [place] [id number] Social History Tobacco Use Types Packs/Day Years Used Date Smoking Tobacco: Never Alcohol Use Standard Drinks/Week Comments Yes 0 (1 standard drink = 0.6 oz pure alcoho l) rarely Sex Assigned at Date Recorded Not on file documented as of this encounter Plan of Treatment Not on filedocumented as of this encounter Procedures Procedure Name Priority Date/Time Associated Diagnosis Comme nts INR/PROTIME Same Day 01/27/2008 7:37 AM DVT (Deep Venous Resul ts for this CDT Thrombosis) procedure are i n the results section . documented in this encounter Results (ABNORMAL) INR/PROTIME (01/27/2008 7:37 AM CDT) P athologist Signature Protime 33.2 (H) 12.0 - [facility] 14.5 sec Coumadin Yes [facility] Specimen Anatomical Collection Method Collection Time Receive d Time (Source) Location / / Volume Laterality 01/27/2008 7:37 AM 8 8:00 CDT AM CDT Jose Colin DO LAB_1 Performing Organization Address City/State/ZIP Code Phon e Number [facility] [phone] [facility] [address] [address] documented in this encounter Visit Diagnoses Diagnosis DVT (deep venous thrombosis) ([facility]) Acute venous embolism and thrombosis of unspecified deep vessels of lower extremity documented in this encounter Care Teams Journeyman Mechanic Relationship Specialty Start Date End Date Jose Colin DO PCP - General 12/24/03 09/17/08 [address] [place] [address] documented as of this encounter
--- OUTSIDE RECORDS SUMMARY | 2022-01-17 22:20 | XMS_ITS | Encounter Summary ---
:1965 Author Organization [facility] Address [address] [place] [address] Care Team Providers Name Role Phone Unavailable Primary Care Provider Unavailable Reason for Referral Outpatient (Routine) - Authorized Specialty Diagnoses / Procedures Referred By Contact Refer red To Contact Sleep Medicine Chrissie Paredes M.D., [facility] [address] [phone] Referral ID Status Reason Start Date Expiration Date Visits V isits Requested Authorized [id number] Authorized 11/16/2021 11/16/2022 1 1 Outpatient (Routine) - Authorized Specialty Diagnoses / Procedures Referred By Contact Refer red To Contact Diagnoses Recurrent Hypersomnia Obstructive Sleep Apnea Adult Chrissie Paredes M.D., [facility] Procedures Polysomnography (PSG): Full Diagnostic PSG [facility] [address] [place] [phone] Referral ID Status Reason Start Date Expiration Date Visits V isits Requested Authorized [id number] Authorized 11/16/2021 11/16/2022 1 1 Outpatient (Routine) - Authorized Specialty Diagnoses / Procedures Referred By Contact Refer red To Contact Diagnoses Recurrent Hypersomnia Obstructive Sleep Apnea Adult Chrissie Paredes M.D., [facility] Procedures Multiple sleep latency test (MSLT) [facility] [address] [place] [address] Referral ID Status Reason Start Date Expiration Date Visits V isits Requested Authorized [id number] Authorized 11/16/2021 11/16/2022 1 1 Reason for Visit Reason Comments Sleep Apnea Daytime sleepiness Ref. Dr. Gomez Appointment Request (Routine) - Closed Specialty Diagnoses / Procedures Referred By Contact Refer red To Contact Neurology Referral ID Status Reason Start Date Expiration Date Visits Requ ested Visits Authorized [id number] Closed 10/24/2021 10/24/2022 1 Encounter Details Date Type Department Care Team Description 11/16/2021 Comprehensive Visit Department of Chrissie Paredes nt Hypersomnia (Primary Dx); Neurology in [place], Obstructive Sle ep Apnea Adult; [place], [place] M[facility] Pain Generalized; [address] Delayed Sleep-Wake Phase Dis order [facility] [address] [place], [place] [phone] [address] Social History Tobacco Use Types Packs/Day Years Used Date Smoking Tobacco: Never Smokeless Tobacco: Never Sex Assigned at Date Recorded Female 11/16/2021 10:41 AM CDT documented as of this encounter Last Filed Vital Signs Vital Sign Reading Time Taken Comments Blood Pressure 121/79 11/16/2021 10:41 AM CDT Pulse 92 11/16/2021 10:41 AM CDT Temperature - - Respiratory Rate - - Oxygen Saturation 97% 11/16/2021 10:41 AM CDT room a ir Inhaled Oxygen Concentration - - Weight 83.1 kg (183 lb 3.2 oz) 11/16/2021 10:41 AM CDT Height 156 cm (5' 1.42) 11/16/2021 10:41 AM CDT Body Mass Index 34.15 11/16/2021 10:41 AM CDT documented in this encounter Patient Instructions AttachmentsThe following attachments cannot be sent through Care Everywhere. Narcolepsy (Angolan)documented in this encounter Consult Notes Chrissie Paredes M.D., [facility] - 11/16/2021 11:00 AM CDT Sleep Clinic No referring provider defined for this encounter. SUBJECTIVE HISTORY OF PRESENT ILLNESS This affable 56-year-old patient has had excessive daytime sleep is now for at least six and probably more years than that. She is referred by Dr. Gomez because she was diagnosed with obstructive sleep apnea with an AHI of 37. A she is treated with CPAP therapy and her residual AHI is 2.3 but shestill very sleepy, falling asleep while driving as recently as last fall. She reports to me that shehas one sister who is also very sleepy another one with CPAP there is also a night owl. The patient herself is actually quite a night owl and used to have difficulty falling asleep unless she went to bed quite late. She freely admits that she does not have good sleep hygiene, going to sleep at inconsistent times. According to her [facility] questionnaire she said the averages about 11:30 p.m. and gets up at 8:00 a.m. and then on the weekends he goes to bed at 11:30 p.m. get up at 10:00 a.m.. Download from her CPAP therapy reveals residual AHI of 2.3 and her average use is 6 hours and52 minutes. Pressure is AutoSet between five and 17 cm water pressure but her median pressure 7.9 cmof water pressure and maximum is 10.1. Her median leak per minute is 1.3 L per minute and 95th percentile is 20.7. She admits that she falls asleep more quickly with CPAP therapy. She has difficulty falling asleep because she has pain in her shoulders and her back inches that sometimes prevents her from falling asleep. Cannot elicit a history of cataplexy with strong emotions but she notes that she takes a nap she generally feels better after the nap. She now works much closer to home so that the drive is shorter is when she was driving to the [employer] she fell asleep while driving she realized she could no longer do that. [place] Sleepiness Score: 50 MEDICAL HISTORY No past medical history on file. SURGICAL HISTORY No past surgical history on file. CURRENT MEDICATIONS Current Outpatient Medications: ??? aspirin 81 mg chewable tablet, Chew 81 mg daily., Disp: , Rfl: ??? cholecalciferol (VITAMIN D3) 50 mcg (2,000 Unit) tablet, Twice A Day, Disp: , Rfl: ??? cyanocobalamin, vitamin B-12, 1,000 mcg tablet extended release, Daily, Disp: , Rfl: ??? DULoxetine (CYMBALTA) [address] capsule, Taking 30 mg with 60 mg for total of 90 mg daily., Disp:, Rfl: ??? DULoxetine (CYMBALTA) [address] capsule, Take 60 mg by mouth daily., Disp: , Rfl: ??? fluticasone propionate (FLONASE) 50 mcg/actuation nasal spray, Daily, Disp: , Rfl: ??? gabapentin (NEURONTIN) 300 mg capsule, One in the a.m., one in the afternoon, and two at bedtime., Disp: , Rfl: ??? ibuprofen (ADVIL,MOTRIN) 800 mg tablet, Take 800 mg by mouth., Disp: , Rfl: ??? metFORMIN (GLUCOPHAGE) 500 mg tablet, Take 1,000 mg by mouth 2 (two) times a day with meals., Disp: , Rfl: ??? omeprazole (PriLOSEC) [address] capsule, Twice A Day, Disp: , Rfl: ??? polycarbophil (FIBERCON) 625 mg tablet, , Disp: , Rfl: ??? simvastatin (ZOCOR) 20 mg tablet, Daily, Disp: , Rfl: ??? SUMAtriptan (IMITREX) 25 mg tablet, As Directed as needed, Disp: , Rfl: ??? topiramate (TOPAMAX) 50 mg tablet, Twice A Day, Disp: , Rfl: ALLERGIES Allergies Allergen Reactions ??? Erythromycin Rash FAMILY HISTORY No family history on file. SOCIAL HISTORY Social History Socioeconomic History ??? Marital status: Spouse name: Not on file ??? Number of children: Not on file ??? Years of education: Not on file ??? Highest education level: Not on file Occupational History ??? Not on file Tobacco Use ??? Smoking status: Never Smoker ??? Smokeless tobacco: Never Used Vaping Use ??? Vaping Use: never used Substance and Sexual Activity ??? Alcohol use: Not on file ??? Drug use: Not on file ??? Sexual activity: Not on file Other Topics Concern ??? Not on file Social History Narrative ??? Not on file Social Determinants of Health Financial Resource Strain: Not on file Food Insecurity: Not on file Transportation Needs: Not on file Physical Activity: Not on file Stress: Not on file Social Connections: Not on file Intimate Partner Violence: Not on file Housing Stability: Not on file OBJECTIVE PHYSICAL EXAMINATION BP 121/79 (BP Location: Right arm, Patient Position: Sitting, Cuff Size: Large) Pulse 92 Ht 156 cm Wt 83.1 kg SpO2 97% Comment: room air BMI 34.15 kg/m?? HEENT Mallampati score: Three Macroglossia: Plus Over jet: Negative Retrognathia: Negative Lungs: Clear Neck Circumference: 35 cm Neurological Exam Cognition: Alert and oriented x 4. Cranial Nerves: II-XII intact and symmetric. Motor: Full strength throughout the upper and lower extremities bilaterally both proximally and distally. Normal tone. No pronator drift. No tremor. Reflexes: Normal and symmetric at the biceps, triceps, brachioradialis, knees, and ankles. Sensory: Normal sensation to touch. Cerebellar: ARMs normal. Gait: Normal. ASSESSMENT / PLAN Encounter Diagnoses Name Primary? Recurrent Hypersomnia Yes ??? Obstructive Sleep Apnea Adult ??? Pain Generalized ??? Delayed Sleep-Wake Phase Disorder This patient has severe obstructive sleep apnea but is adequately treated. She either has idiopathichypersomnia or narcolepsy in addition to the sleep apnea. The other possibility is that her sleep isso inefficient from the pain that she is getting inadequate sleep. She also has likely inadequate sleep time as her average CPAP use is somewhat less than 7 hours per night. This makes is very complicated patient to sort out. Were going to do is do a diagnostic study in [place] where she wear her CPAP equipment. If she has an adequate amount of sleep time will do a multiple sleep latency test to determine whether she has either her cataplexy or narcolepsy. Explained this to her and she verbalized understanding of this. I personally spent 45 minutes in care of the patient today. Time includes both non face to face and face to face patient care. Patient was counseled regarding weight as a risk factor for sleep disordered breathing. The patient was counseled on driving while drowsy. Chrissie Paredes M.D., M.P.[facility] documented in this encounter Plan of Treatment Upcoming Encounters Date Type Specialty Care Team Description 03/02/2022 Appointment Sleep Medicine Chrissie Paredes M.D., [facility] [address] [phone] (Wo rk) 03/03/2022 Appointment Sleep Medicine Chrissie Paredes M.D., [facility] [address] [phone] (Wo prince) 03/16/2022 Office Visit Neurology Chrissie Paredes M.D., [facility] [address] [phone] (Wo prince) Scheduled Orders Name Type Priority Associated Diagnoses Order S chedule Multiple sleep latency Sleep Center Routine Recurrent Expec jayne: test (MSLT) Hypersomnia 11/16/2021 Obstructive Sleep (Approxima te), Apnea Adult Expires: 02/16/2023 Polysomnography (PSG): Sleep Center Routine Recurrent Expec jayne: Full Diagnostic PSG Hypersomnia 11/16/2021 Obstructive Sleep (Approxima te), Apnea Adult Expires: 02/16/2023 Scheduled Referrals Name Type Priority Associated Order Schedule Diagnoses Sleep Medicine Outpatient Referral Routine 1 Occu rrences office visit starting 2021 (clinic) until 3 documented as of this encounter Visit Diagnoses Diagnosis Recurrent Hypersomnia - Primary Obstructive Sleep Apnea Adult Pain Generalized Delayed Sleep-Wake Phase Disorder documented in this encounter
--- OUTSIDE RECORDS SUMMARY | 2022-01-17 22:20 | XMS_ITS | Clinical Summary ---
:1965 Author Organization [facility] Address [address] [place] [address] Care Team Providers Name Role Phone Unavailable Primary Care Provider Unavailable Source Comments Patient records contain information from all sites at [facility]. For routine questions regarding patient records, call [phone] during business hours, M-F 8:00 AM - 5:00 PM Central Time. Record requests for emergency care only can be directed to [phone] at any time.[facility] Allergies Active Allergy Reactions Severity Noted Date Comments Erythromycin Rash 11/16/2021 Medications Medication Sig Dispensed Refills Start Date End Date Status DULoxetine (CYMBALTA) 60 Take 60 mg by 0 05/13/[address] capsule mouth daily. simvastatin (ZOCOR) 20 Daily 0 08/08/2019 Active mg tablet metFORMIN (GLUCOPHAGE) Take 1,000 mg by 0 05/03/2021 Active 500 mg tablet mouth 2 (two) times a day with meals. gabapentin (NEURONTIN) One in the a.m., 0 04/20/2021 Active 300 mg capsule one in the afternoon, and two at bedtime. fluticasone propionate Daily 0 04/20/2021 Active (FLONASE) 50 mcg/actuation nasal spray SUMAtriptan (IMITREX) 25 As Directed as 0 07/13/2020 Active mg tablet needed cyanocobalamin, vitamin Daily 0 02/16/2021 Active B-12, 1,000 mcg tablet extended release polycarbophil (FIBERCON) 0 Active 625 mg tablet cholecalciferol (VITAMIN Twice A Day 0 Active D3) 50 mcg (2,000 Unit) tablet omeprazole (PriLOSEC) 20 Twice A Day 0 05/03/[address] capsule topiramate (TOPAMAX) 50 Twice A Day 0 10/11/2020 Active mg tablet aspirin 81 mg chewable Chew 81 mg 0 Active tablet daily. ibuprofen (ADVIL,MOTRIN) Take 800 mg by 0 Active 800 mg tablet mouth. DULoxetine (CYMBALTA) 30 Taking 30 mg 0 10/14/[address] capsule with 60 mg for total of 90 mg daily. Active Problems Problem Noted Date Pain Generalized 11/16/2021 Delayed Sleep-Wake Phase Disorder 11/16/2021 Recurrent Hypersomnia 11/16/2021 Obstructive Sleep Apnea Adult 11/16/2021 Encounters Date Type Specialty Care Team Description 11/16/2021 Comprehensive Visit Neurology Chrissie Paredes, Jayro rrtez Hypersomnia (Primary Dx); John, M.P.H[facility] Obstructive Sle ep Apnea Adult; Pain Generalize d; Delayed Sleep-W foster Phase Disorder 11/16/2021 Orders Only Neurology Jyoti Joshi, HimaP[facility]lyN. from Last 3 Months Social History Tobacco Use Types Packs/Day Years Used Date Smoking Tobacco: Never Smokeless Tobacco: Never Sex Assigned at Date Recorded Female 11/16/2021 10:41 AM CDT Last Filed Vital Signs Vital Sign Reading [...] Mass Index 34.15 11/16/2021 10:41 AM CDT Plan of Treatment Upcoming Encounters Date Type Specialty Care Team Description 03/02/2022 Appointment Sleep Medicine Chrissie Paredes M.D., [facility] [address] [phone] (Wo rk) 03/03/2022 Appointment Sleep Medicine Chrissie Paredes M.D., [facility] [address] [phone] (Wo rk) 03/16/2022 Office Visit Neurology Chrissie Paredes M.D., M[facility] [address] [phone] (Wo rk) Health Maintenance Due Date Last Done Comments CT Colonography 1965 Cologuard 1965 Colonoscopy 1965 Colorectal Cancer Screening 1965 FIT 1965 HIV Screening 1965 Hepatitis B Vaccines (1 of 1965 3 - 3-dose series) Hepatitis C Screening 1965 Mammogram 1965 Zoster Vaccines (1 of 2) 2013 Depression Screening 06/11/2021 (Annual PHQ-2) COVID-19 Vaccine (4 - 10/22/2021 06/24/2021, 09/24/2020, Booster for Pfizer series) 09/03/2020 Influenza Vaccine (#1) 2022 06/12/2017, 03/23/2016, 04/08/2015, Additional history exists Fasting Glucose for 11/11/2023 11/10/2020, 01/13/2020, Diabetes Screening 11/06/2019, Additional history exists Fasting Lipid Panel 08/08/2024 08/08/2019, 04/09/2018 Cervical Cancer Screening 10/14/2024 10/14/2021 DTaP,Tdap,and Td Vaccines 03/23/2026 03/23/2016, 03/23/2016 , (2 - Td or Tdap) 06/16/2005 Pneumococcal vaccine (0-64 Aged Out 10/06/2014 No lo nger eligible years) based on patient 's age to complete this topic Insurance Payer Benefit Plan / Subscriber ID Effective Dates Phone Addre ss Type Group [employer] [place] [id number]-Raisa [phone] [address] [facility] [address] [place] [address]
--- OUTSIDE RECORDS SUMMARY | 2022-01-17 22:20 | XMS_ITS | Encounter Summary ---
:1965 Author Organization [facility] Address [address] [place] [address] Care Team Providers Name Role Phone Unassigned, Provider Primary Care Provider Unavailable Encounter Details Date Type Department Care Team Description 05/25/2021 Lab Visit [facility] Arthralgia, unspecified join t; [address] [facility] [place] [address] Social History Tobacco Use Types Packs/Day Years Used Date Smoking Tobacco: Never Smokeless Tobacco: Never Alcohol Use Standard Drinks/Week Comments Yes 0 (1 standard drink = 0.6 oz pure alcoho l) rarely Sex Assigned at Date Recorded Not on file documented as of this encounter Plan of Treatment Not on filedocumented as of this encounter Procedures Procedure Name Priority Date/Time Associated Diagnosis Comme nts ANTI-DS DNA Routine 05/25/2021 12:16 PM Arthralgia, Results for this ANTIBODY (CONSTANCE OR FIRST ASSIST REGISTERED NURSE unspecified join t procedure are in ASSAY) Fibromyalgia the results section. C-REACTIVE PROTEIN Routine 05/25/2021 12:16 PM Arthralgia, Re sults for this OR FIRST ASSIST REGISTERED NURSE unspecified join t procedure are in Fibromyalgia the results section. CK, TOTAL Routine 05/25/2021 12:16 PM Arthralgia, Results for this OR FIRST ASSIST REGISTERED NURSE unspecified join t procedure are in Fibromyalgia the results section. ESR Routine 05/25/2021 12:16 PM Arthralgia, Results for this OR FIRST ASSIST REGISTERED NURSE unspecified join t procedure are in Fibromyalgia the results section. documented in this encounter Results CPK - CK Total (05/25/2021 12:16 PM OR FIRST ASSIST REGISTERED NURSE) P athologist Signature CK, Total 64 29 - 168 05/25/2021 TRAM U/L 3:03 PM OR FIRST ASSIST REGISTERED NURSE LABORATORY Specimen Anatomical Collection Method / Collection Time Recei terell Time (Source) Location / Volume Laterality Blood Venipuncture / 05/25/2021 12:16 1 Unknown PM OR FIRST ASSIST REGISTERED NURSE 12:16 PM OR FIRST ASSIST REGISTERED NURSE Kerrie Iqbal MD LAB_1 Performing Organization Address City/[facility]/ZIP Code Phon e Nar[facility] [address] [place] [address] ESR - Sedimentation Rate (05/25/2021 12:16 PM OR FIRST ASSIST REGISTERED NURSE) Patholo gist Method Time Signature Sedimentation Rate 6 0 - 20 05/25/2021 TRAM mm/hr 12:56 PM OR FIRST ASSIST REGISTERED NURSE LABORATORY Specimen Anatomical Collection Method / Collection Time Recei terell Time (Source) Location / Volume Laterality Blood Venipuncture / 05/25/2021 12:16 1 Unknown PM OR FIRST ASSIST REGISTERED NURSE 12:16 PM OR FIRST ASSIST REGISTERED NURSE Kerrie Iqbal MD LAB_1 Performing Organization Address [facility] Phon e Number [facility] [address] [place] [address] [id number] by Constance Assay (05/25/2021 12:16 PM OR FIRST ASSIST REGISTERED NURSE) P athologist Signature Anti-dsDNA Ab <8.0 <8.0 IU/mL 06/03/2021 [facility] (Constance Assay) 5:06 PM OR FIRST ASSIST REGISTERED NURSE INTERFACED Specimen Anatomical Collection Method / Collection Time Recei terell Time (Source) Location / Volume Laterality Blood Venipuncture / 05/25/2021 12:16 1 Unknown PM OR FIRST ASSIST REGISTERED NURSE 12:16 PM OR FIRST ASSIST REGISTERED NURSE Narrative [facility] INTERFACED - 06/03/2021 5:06 PM OR FIRST ASSIST REGISTERED NURSE Test(s) [id number] Ab by Constance(RDL) was developed and its performance charac teristics determined by [facility]. It has not been cleared or a pproved by the Food and Drug Administration. Performed at: ??01 - [facility] [address] [place] [address] A ??[id number] Energy Trading Analyst: Vadim Palacios MD, Phone: ? ?[phone] Kerrie Iqbal MD LAB_1 Performing Organization Address City/State/ZIP Code Phon e Number [facility] INTERFACED [address] [address] [place] [address] CRP - C Reactive Protein (05/25/2021 12:16 PM OR FIRST ASSIST REGISTERED NURSE) P athologist Signature C-Reactive <0.5 0.0 - 0.7 05/25/2021 TRAM Protein mg/dL 3:03 PM OR FIRST ASSIST REGISTERED NURSE LABORATORY Specimen Anatomical Collection Method / Collection Time Recei terell Time (Source) Location / Volume Laterality Blood Venipuncture / 05/25/2021 12:16 1 Unknown PM OR FIRST ASSIST REGISTERED NURSE 12:16 PM OR FIRST ASSIST REGISTERED NURSE Kerrie Iqbal MD LAB_1 Performing Organization Address City/State/ZIP Code Phon e Number [facility] [address] [place] [address] documented in this encounter Visit Diagnoses Diagnosis Arthralgia, unspecified joint Fibromyalgia Mylagia and myositis, unspecified documented in this encounter Care Teams Board Certified Orthodontist Relationship Specialty Start Date End Date Unassigned, Provider PCP - General 09/18/08 [address] [place] [address] documented as of this encounter
--- OUTSIDE RECORDS SUMMARY | 2022-01-17 22:20 | XMS_ITS | Encounter Summary ---
:1965 Author Organization [facility] Address [address] [place] [address] Care Team Providers Name Role Phone DixieJose Jerrell BOOGIE Primary Care Provider [phone] Reason for Visit Reason Onset Date Comments Test Results 12/10/2007 HIDA scan Encounter Details Date Type Department Care Team Description 12/10/2007 Telephone [facility] [address] Nany Ceja Results (HIDA [facility] Luciana Riojas, TEXTILE ARTIST, scan) [address] [place] [address] [address] [phone] [place] [address] Social History Tobacco Use Types Packs/Day Years Used Date Smoking Tobacco: Never Alcohol Use Standard Drinks/Week Comments Yes 0 (1 standard drink = 0.6 oz pure alcoho l) rarely Sex Assigned at Date Recorded Not on file documented as of this encounter Nursing Notes Thaddeus Ro - 12/12/2007 2:17 PM CDT Left message for patient. RTC if symptoms continue. Thaddeus Ro MD Luciana Ceja - 12/10/2007 10:43 AM CDT Pt called, she was informed of normal HIDA scan. She is wondering what the next step is, please call. Luciana Ceja documented in this encounter Plan of Treatment Not on filedocumented as of this encounter Visit Diagnoses Not on filedocumented in this encounter Care Teams Tile Sorter Relationship Specialty Start Date End Date Jose Colin DO PCP - General 12/24/03 09/17/08 [address] [place] [address] documented as of this encounter
--- OUTSIDE RECORDS SUMMARY | 2022-01-17 22:20 | XMS_ITS | Encounter Summary ---
:1965 Author [facility] Address [address], [place] [address] Care Team Providers Name Role Phone Dungjosé antonioelbaJose medina Primary Care Provider [phone] Reason for Referral Specialty Diagnoses / Procedures Referred By Contact Refer red To Contact Maria E Messina LPN Referral ID Status Reason Start Date Expiration Date Visits Requ ested Visits Authorized Reason for Visit Reason Onset Date Comments Test Results 11/25/2007 Encounter Details Date Type Department Care Team Description 11/25/2007 Telephone [facility] [address] Maria E Messina, Test Results [facility] PODIATRIC SURGEON [address] [place] [address] Social History Tobacco Use Types Packs/Day Years Used Date Smoking Tobacco: Never Alcohol Use Standard Drinks/Week Comments Yes 0 (1 standard drink = 0.6 oz pure alcoho l) rarely Sex Assigned at Date Recorded Not on file documented as of this encounter Nursing Notes Thaddeus Ro - 11/27/2007 3:02 PM CDT Left message for patient. US normal. Will get a HIDA scan with EF. Thaddeus Ro MD Maria E Messina - 11/26/2007 4:03 PM CDT I read patient the results of her US. She is asking what is next since test was normal. Maria E Messina LPN Maria E Messina - 11/25/2007 11:10 AM CDT Please call patient at work # with US results. Maria E Messina LPN documented in this encounter Plan of Treatment Scheduled Referrals Name Type Priority Associated Diagnoses Order S chedule HIDA SCAN REFERRAL Referral Routine Abdominal Pain, Other Ordered: 11/28/2007 Specified Site documented as of this encounter Visit Diagnoses Diagnosis Abdominal pain, other specified site - P rimary documented in this encounter Care Teams Director Treasurer Relationship Specialty Start Date End Date Jose Colin DO PCP - General 12/24/03 09/17/08 [address] [place] [address] documented as of this encounter
--- OUTSIDE RECORDS SUMMARY | 2022-01-17 22:20 | XMS_ITS | Encounter Summary ---
:1965 Author [facility] Address [address], [place] [address] Care Team Providers Name Role Phone DungJose gonzalez Primary Care Provider [phone] Encounter Details Date Type Department Care Team Description 01/27/2008 Anticoagulation [facility] Internal Brigido Burch DVT ( Deep Venous Medicine RN Thrombosis) (Primary [address] [facility] Dx) [place] [address] CLINIC [phone] [address] [place], [place] [id number] Social History Tobacco Use Types Packs/Day Years Used Date Smoking Tobacco: Never Alcohol Use Standard Drinks/Week Comments Yes 0 (1 standard drink = 0.6 oz pure alcoho l) rarely Sex Assigned at Date Recorded Not on file documented as of this encounter Progress Notes Brigido Anand - 01/28/2008 8:16 AM CDT Addended by: BRIGIDO BURCH on: 01/28/2008 8:16:36 AM Modules accepted: Orders, Medications Brigido Anand - 01/27/2008 2:54 PM CDT See Anticoagulation Flowsheet for details. Pt would like Dr to review and let her know how much longer she needs to be taking med Brigido Burch, RN documented in this encounter Plan of Treatment Not on filedocumented as of this encounter Visit Diagnoses Diagnosis DVT (deep venous thrombosis) ([facility]) - Argelia bravo Acute venous embolism and thrombosis of unspecified deep vessels of lower extremity documented in this encounter Care Teams Project Management Consultant Relationship Specialty Start Date End Date Jose Colin, PCP - General 12/24/03 09/17/08 [address] [place] [address] documented as of this encounter
--- OUTSIDE RECORDS SUMMARY | 2022-01-17 22:20 | XMS_ITS | Encounter Summary ---
:1965 Author Organization [facility] Address [address] [place] [address] Care Team Providers Name Role Phone Unavailable Primary Care Provider Unavailable Reason for Visit Reason Comments Triage Encounter Details Date Type Department Care Team Description 02/01/2021 Clinical Communication Division of Rheumatology Zachary Parks Triage in [facility] gem WANG M.D. [address] [facility] [address] [place], [place] [address] [place], [place] [phone] Social History Tobacco Use Types Packs/Day Years Used Date Smoking Tobacco: Never Assessed Sex Assigned at Date Recorded Female 11/16/2021 10:41 AM CDT documented as of this encounter Miscellaneous Notes Telephone Encounter - Nga Hooper M.B.B.S. - 02/08/2021 3:13 PM CDT Rheumatology Appointment Request Form Triage Appointment request: DENIED Explanation: Non-inflammatory indication (e.g., osteoarthritis, regional musculoskeletal syndrome, fibromyalgia, or chronic pain) Thank you. Ebony Barrow. Telephone Encounter - Airam Magallon - 02/01/2021 10:24 AM CDT New Patient Referral for: Joint pain OSM: In chart Scheduling Priority: Send Response to: T [facility] SCHEDULING Name: Megan Choi [facility] Number: [id number] Birthdate: 1965 Email: Rheumatology Model of Care I have read the Medical Emergency directions as noted above: Yes I have read the Rheumatology Model of Care as noted above and agree to the process outlined: Yes Demographics Legal first name: Megan Blackwell initial: C Last name: Steph date (mm/dd/yyyy): 1965 Who is filling out this form: Patient Have you been diagnosed with a rheumatic disease: No What are your goals for your visit to [facility]: To find out why I'm in so much pain all the time especially in my joints and why I am always swollen every morning when I wake up and continue to be much more so by the time I go to bed at night. Who is referring you to [facility] (provide name and address): Dr. Rosangela Cho Is this a Document Imaging Specialist: No Is this your local provider that you would like us to communicate with: Yes What are your goals for your visit to [facility]: To find out why I'm in so much pain all the time especially in my joints and why I am always swollen every morning when I wake up and continue to be much more so by the time I go to bed at night. Primary Symptom/Concern Primary Symptom/Concern: Describe your main medical symptoms and concerns: Extensive Joint pain and being very swollen to where it hurts all the time Primary Symptom/Concern: Has this symptom been present for less than 6 months or more than 6 months:More than 6 months Primary Symptom/Concern: Have you previously been evaluated for this symptom: Yes Primary Symptom/Concern: What was the outcome of this evaluation for this symptom: At the time the Dr. Steele seen was unsure if I had just Fibromyalgia or Rheumatoid Arthritis or both, So he told me to go back to my primary physician and have them help me. Are there additional symptoms/concerns: Yes Secondary Symptom/Concern Secondary Symptom/Concern: Describe your main medical symptoms and concerns: Legs/bones always feel like they are very hot and the femur bones and ankles feel like they are about to break after walkingon my feet for a few hours. Secondary Symptom/Concern: Has this symptom been present for less than 6 months or more than 6 months: More than 6 months Secondary Symptom/Concern: Have you previously been evaluated for this symptom: Yes Secondary Symptom/Concern: What was the outcome of this evaluation for this symptom: Nothing Additional Symptoms/Concerns Are you currently taking any form of oral glucocorticoid (e.g., prednisone): No Are you currently taking any form of opioid or narcotic pain medication: Yes What is the medication name: Naproxin What is the dosage (mg) and frequency: 500mg 1 tab 2 x a day Please list any current medications that you take for rheumatology-related conditions: Nothing Please list any medications you have previously taken for rheumatology-related conditions: Nothing Do you or your local provider feel you should see any specialists while at [facility]: Yes Please list any specialists that you or your local provider feel you should see while you are at [facility] and explain: Lico Sharpe How would you rate your overall health: Fair Have you had a biopsy of tissue or organ related to your rheumatology problems: No Do you have a history of iodine contrast reaction: No Do you have a history of Gadolinium contrast reaction: No Are you on dialysis: No Have you had a kidney transplant: No Have you had low urine output or no urine output in the past 48 hours: No Do you have any implanted medical devices or pumps: No Are you diabetic: Yes Are you currently taking any dietary or herbal supplements: No Please list below any specific dates we should not use for scheduling within the next 12 weeks: I amavailable at any time What is the best phone number to reach you at: [phone] documented in this encounter Plan of Treatment Upcoming Encounters Date Type Specialty Care Team Description 03/02/2022 Appointment Sleep Medicine Chrissie Paredes M.D., M.P.H. [address] [place] [phone] (Racquel morrison) 03/03/2022 Appointment Sleep Medicine Chrissie Paredes M.D., M[facility]P.[facility] [address] [place] [phone] (Racquel morrison) 03/16/2022 Office Visit Neurology Chrissie Paredes M.D., M[facility]P.H[facility] [address] [place] [phone] (Wo rk) documented as of this encounter Visit Diagnoses Not on filedocumented in this encounter
--- OUTSIDE RECORDS SUMMARY | 2022-01-17 22:20 | XMS_ITS | Encounter Summary ---
:1965 [facility] Address [address] [place] [address] Care Team Providers Name Role Phone Jose Colin DO Primary Care Provider [phone] Encounter Details Date Type Department Care Team Description 12/19/2007 Orders Only [facility] DVT (Deep Venous [address] Thrombosis) [place], [place] [id number] Social History Tobacco Use Types Packs/Day Years [...] Associated Diagnosis Comme nts INR/PROTIME Same Day 12/19/2007 7:22 AM DVT (Deep Venous Resul ts for this CDT Thrombosis) procedure are i n the results section . documented in this encounter Results (ABNORMAL) INR/PROTIME (12/19/2007 7:22 AM CDT) P athologist Signature Protime 32.0 (H) 12.0 - [facility] 14.5 sec [facility]mad[facility]0 [facility] Specimen Anatomical Collection Method Collection Time Receive d Time (Source) Location / / Volume Laterality 12/19/2007 7:22 AM 8 7:45 CDT AM CDT Jose Colin DO LAB_1 Performing Organization Address City/State/ZIP Code Phon e Number [facility] [phone] [facility] [address] [address] documented in this encounter Visit Diagnoses Diagnosis DVT (deep venous thrombosis) ([facility]) Acute venous embolism and thrombosis of unspecified deep vessels of lower extremity documented in this encounter Care Teams Superior Court Judge Relationship Specialty Start Date End Date Jose Colin DO PCP - General 12/24/03 09/17/08 [address] [place] [address] documented as of this encounter
--- OUTSIDE RECORDS SUMMARY | 2022-01-17 22:20 | XMS_ITS | Encounter Summary ---
:[address] [facility] [facility] Address [address] [place] [address] Care Team Providers Name Role Phone Unassigned, Provider Primary Care Provider Unavailable Reason for Visit Procedure/Equipment (Routine) - Incomplete Specialty Diagnoses / Procedures Referred By Contact Refer red To Contact Diagnoses Arthralgia, unspecified joint Fibromyalgia Kerrie Iqbal MD Procedures XR Hands 1 View Bilat Arthritis [address] [place], [place] [address] Referral ID Status Reason Start Date Expiration Date Visits V isits Requested Authorized [id number] Incomplete 05/25/2021 08/24/2022 1 1 Encounter Details Date Type Department Care Team Description 05/25/2021 Ancillary [place], Arthralgia, uns pecified joint; Procedure Radiology Kerrie Alvarez MD Fibromyalgia [address] [id number] Social History Tobacco Use Types Packs/Day Years [...] Priority Date/Time Associated Diagnosis Comme nts XR HANDS 1 VIEW Routine 05/25/2021 12:24 PM Arthralgia, Resul ts for this BILAT ARTHRITIS WET MILLING WHEEL OPERATOR unspecified join t procedure are in Fibromyalgia the results section. documented in this encounter Results XR Hands 1 View Bilat Arthritis (05/25/2021 12:24 PM WET MILLING WHEEL OPERATOR) Anatomical Region Laterality Modality Upper Extremity, Hand Digital Radiograph y Specimen (Source) Anatomical Collection Method Collection Time Re ceived Time Location / / Volume Laterality 05/25/2021 12:19 PM WET MILLING WHEEL OPERATOR Impressions 05/25/2021 2:16 PM WET MILLING WHEEL OPERATOR COMPARISON: ??None. FINDINGS: ??Single view bilateral AP mittal ds: No acute bone or joint abnormality. No b allison erosive or destructive change seen. There are some scattered degenerative narrowing of joint spaces of the DIP joints and several of the PIP joints. The exam is otherwise unremarkable. Procedure Note Giorgio Cortez MD - 05/25/2021Format ting of this note might be different from the original. IMPRESSION COMPARISON: None. FINDINGS: Single view bilateral AP hands : No acute bone or joint abnormality. No b allison erosive or destructive change seen. There are some scattered degenerative narrowing of joint spaces of the DIP joints and several of the PIP joints. The exam is otherwise unremarkable. Kerrie Iqbal MD RAD GD documented in this encounter Visit Diagnoses Diagnosis Arthralgia, unspecified joint Fibromyalgia Mylagia and myositis, unspecified documented in this encounter Care Teams Paint Roller Covers Supervisor Relationship Specialty Start Date End Date Unassigned, Provider PCP - General 09/18/[address] [place] [address] documented as of this encounter
--- OUTSIDE RECORDS SUMMARY | 2022-01-17 22:20 | XMS_ITS | Encounter Summary ---
:1965 Author Organization [facility] Address [address], [place] [address] Care Team Providers Name Role Phone Jose Colin DO Primary Care Provider [phone] Encounter Details Date Type Department Care Team Description 12/19/2007 [facility] Internal Med Wilda Burton RN [address] [place] [address] [address] [phone] [place], [place] [address] Social History Tobacco Use Types Packs/Day Years Used Date Smoking Tobacco: Never Alcohol Use Standard Drinks/Week Comments Yes 0 (1 standard drink = 0.6 oz pure alcoho l) rarely Sex Assigned at Date Recorded Not on file documented as of this encounter Progress Notes Wilda Anand - 12/19/2007 3:06 PM CDT See Anticoagulation Flowsheet for details. Wilda Burch RN documented in this encounter Plan of Treatment Not on filedocumented as of this encounter Visit Diagnoses Not on filedocumented in this encounter Care Teams Fitting Room Operator Relationship Specialty Start Date End Date Jose Colin, PCP - General 12/24/03 09/17/[address] [place] [address] documented as of this encounter
--- OUTSIDE RECORDS SUMMARY | 2022-01-17 22:20 | XMS_ITS | Encounter Summary ---
:1965 [facility] Address [address] [place] [address] Care Team Providers Name Role Phone Jose Colin DO Primary Care Provider [phone] Encounter Details Date Type Department Care Team Description 12/05/2007 Orders Only [facility] DVT (Deep Venous [address] Thrombosis) [place], [place] [id number] Social History Tobacco Use Types Packs/Day Years [...] Associated Diagnosis Comme nts INR/PROTIME Same Day 12/05/2007 7:25 AM DVT (Deep Venous Resul ts for this CDT Thrombosis) procedure are i n the results section . documented in this encounter Results (ABNORMAL) INR/PROTIME (12/05/2007 7:25 AM CDT) P athologist Signature Protime 37.4 (H) 12.0 - [facility] 14.5 sec Coumadin Yes [facility] INR 3.7 [facility] Specimen Anatomical Collection Method Collection Time Receive d Time (Source) Location / / Volume Laterality 12/05/2007 7:25 AM 8 7:48 CDT AM CDT Jose Colin DO LAB_1 Performing Organization Address City/State/ZIP Code Phon e Number [facility] [phone] [facility] [address] [address] documented in this encounter Visit Diagnoses Diagnosis DVT (deep venous thrombosis) ([facility]) Acute venous embolism and thrombosis of unspecified deep vessels of lower extremity documented in this encounter Care Teams Inspector Firearms Relationship Specialty Start Date End Date Jose Colin DO PCP - General 12/24/03 09/17/08 [address] [place] [address] documented as of this encounter
--- OUTSIDE RECORDS SUMMARY | 2022-01-17 22:20 | XMS_ITS | Encounter Summary ---
:1965 Author Organization [facility] Address [address], [place] [address] Care Team Providers Name Role Phone Jose Colin DO Primary Care Provider [phone] Encounter Details Date Type Department Care Team Description 11/26/2007 [facility] Internal Med Wilda Burton RN [address] [place] [address] [address] [phone] [place], [place] [address] Social History Tobacco Use Types Packs/Day Years Used Date Smoking Tobacco: Never Alcohol Use Standard Drinks/Week Comments Yes 0 (1 standard drink = 0.6 oz pure alcoho l) rarely Sex Assigned at Date Recorded Not on file documented as of this encounter Progress Notes Wilda Anand - 11/26/2007 3:12 PM CDT See Anticoagulation Flowsheet for details. Wilda Burch RN documented in this encounter Plan of Treatment Not on filedocumented as of this encounter Visit Diagnoses Not on filedocumented in this encounter Care Teams Supervisor Lead Refinery Relationship Specialty Start Date End Date Jose Colin, PCP - General 12/24/03 09/17/[address] [place] [address] documented as of this encounter
--- OUTSIDE RECORDS SUMMARY | 2022-01-17 22:20 | XMS_ITS | Encounter Summary ---
:1965 Author [facility] Address [address] [place] [address] Care Team Providers Name Role Phone Jose Colin DO Primary Care Provider [phone] Encounter Details Date Type Department Care Team Description 12/31/[address] [facility] DVT (Deep Venous [address] Thrombosis) [place], [place] [id number] Social History Tobacco Use Types Packs/Day Years [...] Associated Diagnosis Comme nts INR/PROTIME Same Day 12/31/2007 8:10 AM DVT (Deep Venous Resul ts for this CDT Thrombosis) procedure are i n the results section . documented in this encounter Results (ABNORMAL) INR/PROTIME (12/31/2007 8:10 AM CDT) P athologist Signature Protime 27.0 (H) 12.0 - [facility] 14.5 sec Coumadin Yes [facility] INR 2.4 [facility] Specimen Anatomical Collection Method Collection Time Receive d Time (Source) Location / / Volume Laterality 12/31/2007 8:10 AM 8 8:16 CDT AM CDT Jose Colin DO LAB_1 Performing Organization Address City/State/ZIP Code Phon e Number [facility] [phone] [facility] [address] [address] documented in this encounter Visit Diagnoses Diagnosis DVT (deep venous thrombosis) ([facility]) Acute venous embolism and thrombosis of unspecified deep vessels of lower extremity documented in this encounter Care Teams Assistant Office Manager Relationship Specialty Start Date End Date Jose Colin DO PCP - General 12/24/03 09/17/08 [address] [place] [address] documented as of this encounter
--- OUTSIDE RECORDS SUMMARY | 2022-01-17 22:20 | XMS_ITS | Encounter Summary ---
:1965 Author Organization [facility] Address [address] [place] [address] Care Team Providers Name Role Phone Unavailable Primary Care Provider Unavailable Encounter Details Date Type Department Care Team Description 01/26/[address] [facility], Pain Joint (Primary AND CLINICS John Montero Dx) [address] [facility] [address] [place] [address] [place], [place] [phone] Social History Tobacco Use Types Packs/Day Years Used Date Smoking Tobacco: Never Assessed Sex Assigned at Date Recorded Female 11/16/2021 10:41 AM CDT documented as of this encounter Plan of Treatment Upcoming Encounters Date Type Specialty Care Team Description 03/02/2022 Appointment Sleep Medicine Chrissie Paredes M.D., M[facility]P.[facility] [address] [place] [phone] (Racquel morrison) 03/03/2022 Appointment Sleep Medicine Chrissie Paredes M.D., [facility] [address] [place] [phone] (Racquel morrison) 03/16/2022 Office Visit Neurology Chrissie Paredes M.D., M[facility] [address] [place] [phone] (Racquel morrison) documented as of this encounter Visit Diagnoses Diagnosis Pain Joint - Primary documented in this encounter
--- OUTSIDE RECORDS SUMMARY | 2022-01-17 22:20 | XMS_ITS | Encounter Summary ---
:1965 Author Organization [facility] Address [address], [place] [address] Care Team Providers Name Role Phone Jose Colin DO Primary Care Provider [phone] Reason for Visit Reason Onset Date Comments Test Results 12/06/2007 Encounter Details Date Type Department Care Team Description 12/06/2007 Telephone Specialty [facility] [address] Marcos Harris RN Test Results Care Clinic [address] [place] [address] Social History Tobacco Use Types Packs/Day Years Used Date Smoking Tobacco: Never Alcohol Use Standard Drinks/Week Comments Yes 0 (1 standard drink = 0.6 oz pure alcoho l) rarely Sex Assigned at Date Recorded Not on file documented as of this encounter Nursing Notes Marisa Harris - 12/06/2007 11:13 AM CDT Pt. Calling for results of HIDA scan. They are not in yet. Will continue to watch for results and ask Dr. Ro to review when results arrive and then call pt. Back with recommendations. Pt. Can be reached at work number until 2 p.m. Or on her cell phone anytime. Marisa Harris RN documented in this encounter Plan of Treatment Not on filedocumented as of this encounter Visit Diagnoses Not on filedocumented in this encounter Care Teams Wastewater Manager Relationship Specialty Start Date End Date Jose Colin, PCP - General 12/24/03 09/17/08 [address] [place] [address] documented as of this encounter
--- OUTSIDE RECORDS SUMMARY | 2022-01-17 22:20 | XMS_ITS | Encounter Summary ---
:1965 Author Organization [facility] Address [address], [place] [address] Care Team Providers Name Role Phone Jose Colin DO Primary Care Provider [phone] Encounter Details Date Type Department Care Team Description 12/03/2007 Orders Only [facility] [address] [place] [address] Social History Tobacco Use Types Packs/Day Years [...] on filedocumented in this encounter Care Teams Winding Department Supervisor Relationship Specialty Start Date End Date Jose Colin DO PCP - General 12/24/03 09/17/08 [address] [place] [address] documented as of this encounter
--- OUTSIDE RECORDS SUMMARY | 2022-01-17 22:20 | XMS_ITS | Encounter Summary ---
:1965 Author Organization [facility] Address [address], [place] [address] Care Team Providers Name Role Phone Jose Colin DO Primary Care Provider [phone] Encounter Details Date Type Department Care Team Description 12/31/2007 [facility] Internal Med Wilda Burton RN [address] [place] [address] [address] [phone] [place], [place] [address] Social History Tobacco Use Types Packs/Day Years Used Date Smoking Tobacco: Never Alcohol Use Standard Drinks/Week Comments Yes 0 (1 standard drink = 0.6 oz pure alcoho l) rarely Sex Assigned at Date Recorded Not on file documented as of this encounter Progress Notes Wilda Anand - 12/31/2007 4:00 PM CDT See Anticoagulation Flowsheet for details. Wilda Burch RN documented in this encounter Plan of Treatment Not on filedocumented as of this encounter Visit Diagnoses Not on filedocumented in this encounter Care Teams Professor Of Communication And Writing Relationship Specialty Start Date End Date Jose Colin, PCP - General 12/24/03 09/17/[address] [place] [address] documented as of this encounter
--- OUTSIDE RECORDS SUMMARY | 2022-01-17 22:20 | XMS_ITS | Encounter Summary ---
:1965 Author Organization [facility] Address [address] [place] [address] Care Team Providers Name Role Phone Unavailable Primary Care Provider Unavailable Encounter Details Date Type Department Care Team Description 10/11/2021 Clinical Communication Department of [facility], Pcp Medicine, [facility], in [address] [address] Social History Tobacco Use Types Packs/Day Years Used Date Smoking Tobacco: Never Assessed Sex Assigned at Date Recorded Female 11/16/2021 10:41 AM CDT documented as of this encounter Plan of Treatment Upcoming Encounters Date Type Specialty Care Team Description 03/02/2022 Appointment Sleep Medicine Chrissie Paredes M.D., M[facility]P.[facility] [address] [place] [phone] (Racquel morrison) 03/03/2022 Appointment Sleep Medicine Chrissie Paredes M.D., [facility] [address] [place] [phone] (Racquel rk) 03/16/2022 Office Visit Neurology Chrissie Paredes M.D., M[facility]P.[facility] [address] [place] [phone] (Racquel rk) documented as of this encounter Visit Diagnoses Not on filedocumented in this encounter
--- OUTSIDE RECORDS SUMMARY | 2022-01-17 22:20 | XMS_ITS | Encounter Summary ---
:1965 Author Organization [facility] Address [address] [place] [address] Care Team Providers Name Role Phone Unavailable Primary Care Provider Unavailable Encounter Details Date Type Department Care Team Description 11/16/2021 Orders Only [facility] [place] [facility] [address] [place] [phone] [place] [address] Social History Tobacco Use Types Packs/Day Years Used Date Smoking Tobacco: Never Smokeless Tobacco: Never Sex Assigned at Date Recorded Female 11/16/2021 10:41 AM CDT documented as of this encounter Plan of Treatment Upcoming Encounters Date Type Specialty Care Team Description 03/02/2022 Appointment Sleep Medicine Chrissie Paredes M.D., [facility] [address] [place] [phone] (Racquel morrison) 03/03/2022 Appointment Sleep Medicine Chrissie Paredes M.D[facility] [address] [place] [phone] (Racquel morrison) 03/16/2022 Office Visit Neurology Chrissie Paredes M.D., [facility] [address] [place] [phone] (Racquel morrison) documented as of this encounter Visit Diagnoses Not on filedocumented in this encounter
--- OUTSIDE RECORDS SUMMARY | 2022-01-17 22:20 | XMS_ITS | Encounter Summary ---
:1965 Author [facility] Address [address] [place] [address] Care Team Providers Name Role Phone DixiePipochris Allan DO Primary Care Provider [phone] Reason for Visit Reason Onset Date Comments Return Call 11/29/2007 about further testin g Encounter Details Date Type Department Care Team Description 11/29/2007 Telephone Specialty Center Sandra Cardenas Call (about [phone] [facility], RN further testing) Clinic [address] [place] [phone] (Wo rk) Social History Tobacco Use Types Packs/Day Years Used Date Smoking Tobacco: Never Alcohol Use Standard Drinks/Week Comments Yes 0 (1 standard drink = 0.6 oz pure alcoho l) rarely Sex Assigned at Date Recorded Not on file documented as of this encounter Nursing Notes Sandra Cardenas - 11/29/2007 9:24 AM CDT Pt calling because she was told she needs another test, not sure what. Dr Ro has requested a HIDA scan with EF. Order placed, call transferred to radiology. Sandra Cardenas RN 11/29/2007 9:23 AM documented in this encounter Plan of Treatment Scheduled Orders Name Type Priority Associated Diagnoses Order S chedule HIDA Nuc Medicine Routine Abdominal Pain, Right Upper Quadrant Ordered: 11/29/2007 documented as of this encounter Visit Diagnoses Diagnosis Abdominal pain, right upper quadrant - P rimary documented in this encounter Care Teams Ripper Operator Relationship Specialty Start Date End Date Jose Colin DO PCP - General 12/24/03 09/17/08 [address] [place] [address] documented as of this encounter
--- OUTSIDE RECORDS SUMMARY | 2022-01-17 22:20 | XMS_ITS | Encounter Summary ---
:1965 Author Organization [facility] Address [address] [address] Care Team Providers Name Role Phone Jose Colin DO Primary Care Provider [phone] Encounter Details Date Type Department Care Team Description 12/05/2007 [facility] Internal Med Wilda Burton RN [address] [place] [address] [address] [phone] [place], [place] [address] Social History Tobacco Use Types Packs/Day Years Used Date Smoking Tobacco: Never Alcohol Use Standard Drinks/Week Comments Yes 0 (1 standard drink = 0.6 oz pure alcoho l) rarely Sex Assigned at Date Recorded Not on file documented as of this encounter Progress Notes Wilda Anand - 12/05/2007 2:35 PM CDT See Anticoagulation Flowsheet for details. Wilda Burch RN documented in this encounter Plan of Treatment Not on filedocumented as of this encounter Visit Diagnoses Not on filedocumented in this encounter Care Teams Pricing Manager Relationship Specialty Start Date End Date Jose Colin, PCP - General 12/24/03 09/17/[address] [place] [address] documented as of this encounter
--- OUTSIDE RECORDS SUMMARY | 2022-01-17 22:20 | XMS_ITS | Clinical Summary ---
:1965 Author Organization [facility] Address [address] [address] Care Team Providers Name Role Phone Unassigned, Provider Primary Care Provider Unavailable Source Comments You are receiving this document as you are listed as the primary care provider,follow-up provider, or the patient has been referred to you for consultation.This is in compliance with the Medicare and Medicaid EHR Incentive Program,which states Providers who transition their patient to another setting of careor provider of care or refers their patient to another provider of care shouldprovide summarycare record for each transition of care or referral. [facility] Allergies Active Allergy Reactions Severity Noted Date Comments Erythromycin Hives High 06/20/2001 Medications Medication Sig Dispensed Refills Start Date End Date Status OMEPRAZOLE (PRILOSEC) One by mouth 30 0 05/03/2007 Active 20MG ORAL every day CAPSIndications: GERD (gastroesophageal reflux disease) Additional Information Patient taking differently: 20 mg Oral BID, Other, Reported on 05/25/2021 ASPIRIN 81 MG OR CHEW Take one tablet by 0 01/27/ 8 Active mouth every day. topiramate (TOPAMAX) 50 MG Take 50 mg by mouth 0 Active tablet daily. metFORMIN (GLUCOPHAGE) 500 MG Take 500 mg by mouth 0 05/03/2021 Active tablet two times a day. simvastatin (ZOCOR) 20 MG Take 20 mg by mouth 0 04/12 Active tablet daily. DULoxetine (CYMBALTA) 60 MG Take 60 mg by mouth 0 Active capsule daily. fluticasone propionate Place 50 mL into both 0 05/20 Active (FLONASE) 50 MCG/ACT nasal nostrils daily. solution SUMAtriptan (IMITREX) 25 MG Take 25 mg by mouth 0 12 /12/2020 Active tablet two times daily as needed. cholecalciferol (VITAMIND3) 50 Take 2,000 Units by 0 Active MCG (2000 UT) tablet mouth two times a day. gabapentin (NEURONTIN) 300 MG Take 600 mg by mouth 0 04/20/2021 Active capsule daily at bedtime. Calcium Polycarbophil (FIBER) Take 500 mg by mouth 4 0 Active 625 MG times a day. 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 Cervicalgia 06/20/2004 Overview: C5-7 fusion...2000 Contact dermatitis and eczema 04/21/2004 Overview: Contact dermatitis and other eczema, due to unspecified cause Immunizations Name Administration Dates Next Due Flu Vac (3+ yrs) 03/09/2011, 04/08/2010, 04/13/2008 Influenza IIV4 (Quadrivalent) 0.5mL 06/12/2017, 03/23/2016, 04/08/2015, ([id number]) 05/30/2013 PPSV23 (Pneumovax) 10/06/2014 Pfizer (Comirnaty) COVID-19, 12+ Yrs 09/24/2020, 09/03/2020 Purple Top Td (7+ yrs) 06/16/2005 Tdap 03/23/2016 Family History Medical History Relation Name Comments Coronary Artery Disease Father Diabetes, Type II Father Hypertension Father Kidney Disorder Father Other Father sky's Diabetes, Type II Mother Hypertension Mother Diabetes, Type II Brother Cancer, Ovary Other first cousin, vadim shah, diagnosed about age 32 Diabetes, Type II Sister Anesthesia Reaction Negative Family History Bleeding Disorder Negative Family History Cancer, Breast Negative Family History Relation Name Status Comments Father Mother Brother Other Sister Social History Tobacco Use Types Packs/Day Years Used Date Smoking Tobacco: Never Smokeless Tobacco: Never Alcohol Use Standard Drinks/Week Comments Yes 0 (1 standard drink = 0.6 oz pure alcoho l) rarely Sex Assigned at Date Recorded Not on file Last Filed Vital Signs Vital Sign Reading Time Taken Comments Blood Pressure 120/62 05/25/2021 11:09 AM FIELD TEST ENGINEER Pulse 59 05/25/2021 11:09 AM FIELD TEST ENGINEER Temperature 36.7 ??C (98.1 ??F) 05/25/2021 11:09 AM FIELD TEST ENGINEER Respiratory Rate 16 08/23/2007 1:13 PM CDT Oxygen Saturation 97% 08/23/2007 1:13 PM CDT Inhaled Oxygen Concentration - - Weight 78.8 kg (173 lb 12.8 oz) 05/25/2021 11:09 AM FIELD TEST ENGINEER Height 160 cm (5' 3) 08/23/2007 1:13 PM CDT Body Mass Index - - Plan of Treatment Health Maintenance Due Date Last Done Comments Colon Cancer Screening Plan 1965 Due Hep C Screening (Preventive 1965 Services) HepB (1) 1965 HIV Screening (Preventive 1979 Services) Adult Preventive Visit 09/03/2003 09/02/2002, 03/28/2001 Mammogram 05/15/2004 05/15/2003 Cervical Cancer Screening 10/03/2005 10/02/2005, 09/02/2002 , Due 03/28/2001, Additional history exists Cholesterol 10/07/2010 10/07/2005, 09/08/2002, 09/08/2002, Additional history exists Zoster/Shingles (1 of 2) 2013 COVID-19 Vaccine (3 - 02/24/2021 09/24/2020, 09/03/2020 Booster for Pfizer series) Influenza (#1) 2022 06/12/2017, 03/23/2016, 04/08/2015, Additional history exists DTaP/Tdap/Td (2 - Tdap) 03/23/2026 03/23/2016, 06/16/2005, 06/16/2005 Pneumococcal Aged Out 10/06/2014 No longer eligib le based on patient 's age to complete this topic HepA Aged Out No longer eligib le based on patient 's age to complete this topic Hib Aged Out No longer eligib le based on patient 's age to complete this topic IPV (Polio) Aged Out No longer eligib le based on patient 's age to complete this topic MCV4 Aged Out No longer eligib le based on patient 's age to complete this topic Medical Devices Implanted Type Area Real Estate Sales Supervisor Device Shelf Model / Identifier Expiration Date Ser ial / Lot Bone Canc Crushed 60cc - [id number] BIOLOGIC Left: Henna [id number] / Implanted: Qty: 1 on 04/15/2007 at [facility] OTS [id number] / Device Cage Ray Thrd 12x26 - [id number] Left: [place] 7-1226 / Implanted: Qty: 2 on 04/15/2007 at [facility] / [id number] Cage Ray [id number] - [id number] Left: Henna 7-1426 / Implanted: Qty: 1 on 04/15/2007 at [facility] / [id number] Insurance Payer Benefit Plan / Subscriber ID Effective Dates Phone Addre ss Type Group BCBS BCBS OUT OF [id number] 2016-Present [address] [address] [place] [address] (Work) Megan Choi Personal/Family Self 1965 [address] (Home) [place] [phone] (Work) Advance Directives Latest Code Status on File Code Status Date Activated Date Inactivated Comments Full Code 04/15/2007 8:03 AM 04/19/2007 8:53 PM Care Teams Waiter/Waitress Counter Relationship Specialty Start Date End Date Unassigned, Provider PCP - General 09/18/[address] [place] [address]
--- OUTSIDE RECORDS SUMMARY | 2022-01-17 22:20 | XMS_ITS | Encounter Summary ---
:1965 [facility] Address [address] [place] [address] Care Team Providers Name Role Phone Jose Colin DO Primary Care Provider [phone] Encounter Details Date Type Department Care Team Description 11/26/2007 Orders Only [facility] DVT (Deep Venous [address] Thrombosis) [place], [place] [id number] Social History Tobacco Use Types Packs/Day Years [...] Associated Diagnosis Comme nts INR/PROTIME Same Day 11/26/2007 7:34 AM DVT (Deep Venous Resul ts for this CDT Thrombosis) procedure are i n the results section . documented in this encounter Results (ABNORMAL) INR/PROTIME (11/26/2007 7:34 AM CDT) P athologist Signature Protime 43.7 (H) 12.0 - [facility] 14.5 sec Coumadin Yes [facility] INR 4.5 [facility] Specimen Anatomical Collection Method Collection Time Receive d Time (Source) Location / / Volume Laterality 11/26/2007 7:34 AM 8 7:36 CDT AM CDT Jose Colin DO LAB_1 Performing Organization Address City/State/ZIP Code Phon e Number [facility] [phone] [facility] [address] [address] documented in this encounter Visit Diagnoses Diagnosis DVT (deep venous thrombosis) ([facility]) Acute venous embolism and thrombosis of unspecified deep vessels of lower extremity documented in this encounter Care Teams Fur Machine Operator Relationship Specialty Start Date End Date Jose Colin DO PCP - General 12/24/03 09/17/08 [address] [place] [address] documented as of this encounter
--- OUTSIDE RECORDS SUMMARY | 2022-01-17 22:20 | XMS_ITS | Encounter Summary ---
:1965 Author Organization [facility] Address [address] [place] [id number] Care Team Providers Name Role Phone Unassigned, Provider Primary Care Provider Unavailable Reason for Referral Procedure/Equipment (Routine) - Incomplete Specialty Diagnoses / Procedures Referred By Contact Refer red To Contact Diagnoses Arthralgia, unspecified joint Fibromyalgia Kerrie Iqbal MD Procedures XR Hands 1 View Bilat Arthritis [address] [place], [place] [address] Referral ID Status Reason Start Date Expiration Date Visits V isits Requested Authorized [id number] Incomplete 05/25/2021 08/24/2022 1 1 PRESIDENT OF ADVERTISING Reason for Visit Reason Comments CONSULT Encounter Details Date Type Department Care Team Description 05/25/2021 Office Visit Kerrie Grijalva Arthralgi a, unspecified joint (Primary Dx); Rheumatology MD Jeramie Fibromyalgia; [address] [facility] Chronic neck pain with histo ry of cervical spinal surgery; [place] [address] [facility] Chronic low back pain with sciatica, sci atica laterality unspecified, unspecified back pain laterality (HRC); [phone] [place], [place] Positive A NA (antinuclear antibody) [address] (Wo rk) Social History Tobacco Use Types Packs/Day Years Used Date Smoking Tobacco: Never Smokeless Tobacco: Never Alcohol Use Standard Drinks/Week Comments Yes 0 (1 standard drink = 0.6 oz pure alcoho l) rarely Sex Assigned at Date Recorded Not on file documented as of this encounter Last Filed Vital Signs Vital Sign Reading Time Taken Comments Blood Pressure 120/62 05/25/2021 11:09 AM VICE PRESIDENT OF ADVERTISING Pulse 59 05/25/2021 11:09 AM VICE PRESIDENT OF ADVERTISING Temperature 36.7 ??C (98.1 ??F) 05/25/2021 11:09 AM VICE PRESIDENT OF ADVERTISING Respiratory Rate - - Oxygen Saturation - - Inhaled Oxygen Concentration - - Weight 78.8 kg (173 lb 12.8 oz) 05/25/2021 11:09 AM VICE PRESIDENT OF ADVERTISING Height - - Body Mass Index - - documented in this encounter Patient Instructions Patient InstructionsKerrie Iqbal MD - 05/25/2021 11:00 AM CST Images from the original note were not included. Will get some extra blood work today X-rays of the hands Medrol dospak for sciatica symptoms Look into warm pool therapy Recommend you see a pain clinic Fibromyalgia What is it? Fibromyalgia is a syndrome where the main symptoms are fatigue and widespread musculoskeletal pain, not explained by other causes. Typically, the pain is on both sides of the body and above and below the waist. If the pain is more localized to a particular area of the muscles and not all over, it is called myofascial pain. The pain is usually in the muscles, but can also be in the joint areas, where the muscles attach. Visible swelling and heat in the joint areas are not features of fibromyalgia (although sometimes they may feel that way to you). Many patients with fibromyalgia will have at least 11 of 18 of the tender points noted below. The common tender points of fibromyalgia include neck, upper back, sternal area, elbows, buttock, side of the hips, and knees. Other symptoms commonly found in patients with fibromyalgia may include: ??? Disturbed and poor quality sleep - people with fibromyalgia often do not get good ???restorative?? sleep, and may also have problems with leg cramps and restless legs. ??? Depression, anxiety and other mood changes ??? Numbness and tingling in extremities, called paresthesias (other causes such as neurological diseases may need to be ruled out) ??? Irritable bowel syndrome - constipation, diarrhea, bloating, abdominal cramping, often exacerbated by stress, and not explained by other bowel disorders. ??? Irritable bladder ??? Dry eyes and mouth ??? Headaches and facial pain - pain at the temporomandibular joint (TMJ) is common, as are tension and other types of headaches. ??? Heightened sensitivity - some patients will have an increased sensitivity to bright lights, loudnoises, odors such as perfumes, and even light touch. ??? Difficulty concentrating ??? Chest pain, usually from the rib cage and muscles. ??? Dizziness ??? Painful menstrual cramps Cause The exact cause of fibromyalgia is as yet not known. However, some research suggests that up to halfof cases of fibromyalgia may be associated with small fiber neuropathy. This is not too surprising, since many of the medications used for fibromyalgia are also used for neuropathy. Many other factors probably play a role. Recent research has suggested that genetics may contribute. Just as there are people whose genes result in ???strong?? bones or ???weak?? bones, there are people who have abnormalities in their pain processing (the way nerves respond to pain) which may predispose to developing fibromyalgia. External factors also can contribute to developing fibromyalgia. For example, if you beco me depressed, the depression can result in increased musculoskeletal pain. When the depression is treated, the pain can improve. Sometimes the chronic pain of fibromyalgia can increase the likelihood of developing depression, and in that case it is equally important to treat the depression. Poor sleepfor any extended period of time is another factor in the development of fibromyalgia. Healthy peoplewho are sleep deprived often begin to ???ache?? in their muscles. This can then result in a viciouscycle where pain further disturbs sleep which results in even more pain. Many factors like stress, depression, and lack of exercise can affect sleep quality. Frequent ???hot flashes?? during menopause can significantly affect sleep. Sleep can also be affected by poor ???sleep hygiene?? . For example,activities like reading in bed, eating in bed, watching TV in bed, etc., can result in ???confusing?? the body about the purpose of being in bed. Avoiding such activities in bed can allow for better sleep quality. Regular aerobic exercise may be preventative to developing fibromyalgia because it improves sleep and counteracts stress and depression. Along the same lines, lack of aerobic exercise can contribute to the development of fibromyalgia. Other conditions which cause pain including rheumatoidarthritis, connective tissue diseases like lupus and Sjogren???s syndrome can be associated with fibromyalgia. Sometimes a severe trauma (physical or emotional) can predispose to developing fibromyalgia. Risk factors ??? Female gender - Well over 90% of patients with fibromyalgia are women. ??? Younger age - It is unusual to have the first presentation of fibromyalgia occur after age 65. ??? Poor sleep - From whatever cause (pain, stress, restless legs, sleep apnea, legs cramps) can contribute to developing fibromyalgia. ??? Family history - If siblings or parents have had fibromyalgia, this may increase your risk. ??? 2% of the [place] population or 3-6 million people have fibromyalgia Evaluation Usually the laboratory and x-rays findings in fibromyalgia are normal. Some laboratory tests and imaging tests may be considered to rule out other potential causes of pain. The patient???s history andthe physical examination are the most important clues to diagnosing fibromyalgia. TREATMENT Health care providers A number of different providers may assist in the care of your fibromyalgia. Your primary care provider will usually be familiar with fibromyalgia and many of its treatments. Physical medicine and rehabilitation doctors are also experts in the treatment of non-inflammatory musculoskeletal pain and can be helpful in prescribing specific physical therapy regimens. Since many cases of fibromyalgia havesmall fiber neuropathy, visiting with a Neurologist about that may sometimes be helpful. Rheumatologists often assist with ruling out other causes of musculoskeletal pain and making recommendations fortreatment in difficult cases. Other providers such as doctors of chiropractic, physical therapists, o ccupational therapists, acupuncturists, and other alternative providers often play a role. Some psychologists have expertise in helping patients better manage chronic pain. Rmh-renyaaatvk-ahtmh treatments An exercise program is an essential part of counteracting fibromyalgia. You need to know a number ofthings before beginning a program. The best types of exercise to consider are low-impact aerobic activities. Aerobic means getting you hear rate up to 60-80% of maximum (220 minus age). For example, ifyou are 40 years old, the goal heart rate would be 0.6 (220-40) to 0.8(220-40), or 108 to 144. The goal is to find an activity that allows you to maintain this heart rate for 20-30 minutes at least 3 days per week. The best forms of exercise for fibromyalgia are walking, biking, swimming, and water aerobics. Probably the least imposing way to start is a water aerobics program in a heated pool. Many community pools such as the [facility] offer ???fibrocize?? water aerobics programs. A very important pointto remember is to start your exercise program slowly and gradually increase it. Try not to make the mistake of going out the first day and doing a hard workout for 30 minutes. Many patients will feel so poorly after this that they never go back. Start very slowly and gradually increase. It is important to remember, however, that many people will have an increase in pain for several weeks before exercise begins to decrease the pain. Try to persevere through this period. Exercises that cause significant postexercise pain are probably too intense. Other forms of exercise that include muscle strengthening like Pilates and Chanel Chi may be beneficial. Cognitive behavioral therapy is another very helpful intervention for fibromyalgia. Unfortunately, there is no ???magic bullet?? pill to take away all the symptoms of fibromyalgia. Therefore, learninghealthy techniques to better manage pain is imperative. Meditation and relaxation techniques providea way to refocus your mind away from the pain and cope better with it. This type of treatment can also help reduce stress. Occupational therapists at [facility] offer a program called the Lifestyle renewal program (see information on last page), where you can learn these techniques, and the majority of patients report that this is helpful. Pain psychologists at [facility] are another helpful resource. Emma Horn, PhD, Mandy Roldan M.Ed, LP, Psychologist at [facility] [Chronic pain (headaches, fibromyalgia, etc.) and irritable bowel syndrome - evaluation and treatment], and Rajiv Sutherland, Ph.D., LP, Psychologist at [facility] SET UP OPERATOR (Chronic pain evaluation). Patients may schedule appointments as usual by contacting the Mental Health Department at . An intake counselor will request information on the presenting problem and referral source. A variety of other modalities are helpful for some patients. Massage can help loosen and relax tightmuscles. Acupuncture may help address abnormal pain processing and has been shown in a randomized trial to provide decreased pain. On a practical note, massage and acupuncture are not routinely coveredthrough insurance. Physical therapy with gentle stretching and muscle strengthening can help in someinstances, as can palliative care nurse. Warm water pool physical therapy at places like the [facility] and [facility] can be prescribed by your physician, if necessary. There are also a number of fibromyalgia support groups. Many patients ask if specific dietary modifications can help, and some patients have found for themselves that certain foods or diets can help or hinder with their pain. To date, there are no specific trials which have shown that one specific food or diet is helpful. However, weight loss can be helpful, and eating a balanced diet to help lose a few pounds is usually beneficial. Although no controlled trials support its recommendation, some patients report that getting regular exposure to morning sunlight can boost mood and wellbeing. Medications Because fibromyalgia is common, more and more medications are being studied and developed to help. While no medicine is yet curative, they can be a useful part of the treatment. The medications for fibromyalgia can in general be thought of to work on one of several areas. Some help with restoring good sleep. Anti- depressants can help treat depression, if it is present. Others work on pain. And some work on several of these areas. Medications which you and your doctor may consider include, but are not limited to: ??? Acetaminophen (Tylenol) - This is a mild, but safe analgesic when taken in doses of 1000 mg, three times daily. ??? NSAIDs (Nonsterioidal anti-inflammatory drugs) - Medications like ibuprofen (Advil) and naproxen(Aleve) sometimes offer some pain relief. They should be taken with food to avoid stomach irritationand not be continued if they offer no benefit. ??? Amitriptyline (Elavil) - Technically an antidepressant, this medicine when used in low doses is helpful for improving sleep. Typical dose would be 10 - 100 mg at night. Side effects could include dry mouth and grogginess. ??? Nortriptyline (Pamelor) - Technically an antidepressant, this medicine when used in low doses ishelpful for improving sleep. Typical dose would be 10 - 100 mg at night. Side effects could include dry mouth and grogginess. ??? Trazodone (Deseryl) - Technically an antidepressant, this medicine when used in low doses is helpful for improving sleep. Typical dose would be 25-150 mg at night. Side effects could include dry mouth and grogginess. ??? Doxepin (Sinequan) - Technically an antidepressant, this medicine when used in low doses is helpful for improving sleep. Typical dose would be 10 - 100 mg at night. Side effects could include dry mouth and grogginess. ??? Milnacipran (Savella) - This is a newer generation of antidepressant, which has shown benefits not only for depression, but also for improving pain, even in those without depression. It increases both serotonin and norepinephrine in the brain. It is now FDA approved for fibromyalgia. Typical dosing is 12.5 - 200 mg/day. ??? Duloxetine (Cymbalta) - This is a newer generation of antidepressant, which has shown benefits not only for depression, but also for improving pain, even in those without depression. It increases both serotonin and norepinephrine in the brain. It is now FDA approved for fibromyalgia. ??? Tramadol (Ultram) or combined with Tylenol (Ultracet) - This medication is primarily for pain. It is a weak opioid and for that reason has been used less in recent times because of potential addictive potential. Typical dose would be 50 - 100 mg up to 4 times daily. It should be avoided if you have a history of a seizure disorder. Side effects could include nausea, sedation, and constipation. Also, it should be used cautiously in patients already taking medications such as sertraline (Zoloft), paroxetine (Paxil), fluoxetine (Prozac), citalopram (Celexa), escitalopram (Lexapro), venlafaxine (Effexor), duloxetine (Cymbalta). ??? Pramipexole (Mirapex) - This medication was first used to treat Parkinson???s disease and the Restless Leg Syndrome. Recent studies have shown that it can reduce pain levels in fibromyalgia. It hassurprisingly few side effects, but can cause nausea, transient anxiety, or weight loss. Typical doseis starting at 0.25 mg daily and gradually increasing to a maximum of 4.5 mg at night. ??? Gabapentin (Neurontin) - First developed to treat seizures, gabapentin helps block certain nervetransmissions and can reduce nerve pain called neuropathy. It can have some sedative properties and improve sleep in selected patients. Typical dose would be starting at 100 mg at night and gradually increasing as tolerated to as high as 800 mg three times daily. There is now a published trial suggesting that about half of patients get at least a 30% improvement in pain. Sleep can be significantly improved with gabapentin also. ??? Pregabalin (Lyrica) - This is a newer generation cousin of gabapentin, but is more expensive. Typically, the starting dose is 25 mg daily, increasing as tolerated to 150 mg three times daily as tolerated. Lyrica is FDA approved for fibromyalgia. ??? Muscle relaxers: Cyclobenzaprine (Flexeril), carisoprodol (Soma), methocarbamol (Robaxin), metaxalone (Skelaxin), tizanidine (Zanaflex) can be useful to relax to help with relaxation of tight muscles and because of their natural sedative effects can help with sleep also. ??? Opioid pain medicines (codeine, hydrocodone, oxycodone, morphine, etc) are typically NOT recommended as part of the medication program in fibromyalgia. They tend to not control the pain, creating aneed for more and more medication. Some pain specialists will consider their use in selected circumstances. Procedures Sometimes, several very tender muscular areas called trigger points can be injected by your Employment Security Officer or other providers with a mixture of local anesthetic and a small amount of cortisone. These are called trigger point injections and can often help provide relief to local areas of particularly sore muscles. Prognosis Fibromyalgia is a chronic condition, but can sometimes go away. The goal is to manage it through all of the interventions above. Of importance, it is not typically a progressive or crippling disorder and does not impair function of internal organs. Resources ??? National Fibromyalgia Association 489 829 0722 www.fmaware.org ??? National [place] of Arthritis and Musculoskeletal and Skin Diseases 197 460 7485 www.niams.nih.gov ??? National Center for Complementary and Alternative Medicine 924 623 4852 www.[facility]/nhrmc.nih.gov ??? [facility] (Water aerobics, heated pool to 91 degrees) [address] [place] [address]; charges apply. What else can be tried? Sometimes, for a minority of patients, the above interventions do not result in control of fibromyalgia. In these cases, you should consider a chronic pain program. Several of these and additional resources are listed below: [facility] a nursing practice for fibromyalgia patients, has opened at [address] [place] [address], to serve [facility]. Lsahawn Larios, RN, CERTIFIED PERSONAL TRAINER and Staci Porter MS, RN, are the founders and co-owners. [phone] [facility], Dr. Emir Saini , [address] [facility] [place] [address] [facility] [address], [place] [address] Also offices in [place] and [place]. , [email or web address] [facility] - Aquatic Therapy: [facility], [place], Ann Velasquez, [place], [facility], [facility]. [email or web address] [facility] [place] [address] Outpatient therapy: (physical, occupational and speech therapy; sprinkler driver evaluations) Initial appointment: [phone]; Follow-up appointment: [phone] Aquatic therapy, Ann Yusuf [phone] [facility], [email or web address]/, [address] [facility], [place] [address], . [facility] - Pain Management [address] [place] [address] Appointments: [phone] [facility] [email or web address], [address], [place] [address]; Also a location in [place]. [facility] [phone] [facility] [facility] [address] [place] [address] [facility] - they focus more on back pain, but offer cognitive behavioral therapy. Tip Hartley [facility] [phone] [facility] [phone], [address] [facility], [address], [place] [address] Saleem Mayberry MD [phone], division operations specialist, [place] [address] [facility], , [place] [address] [facility] (will treat fibromyalgia and chronic pain syndrome in additionto head & neck disorders; also have [employer] equipment for chronic back pain). [email or web address] ??? [place]: [address] [facility], [address], [address]; [phone] ??? [place]: [address] [facility] [address], [address], [address]; [phone] ??? [place]: [address] [place] [address], [address]; [phone] ??? [place]: [address] [facility], [address]; [phone] Lifestyle Renewal Program - At [facility] The LifeStyle Renewal Program is an integrated program provided by Occupational Therapists to help people work with their symptoms from a variety of treatment techniques. It is customized for each patient. Research shows that an approach which encompasses social and psychological influences as well asphysical factors is effective for decreasing symptoms and improving quality of life. A holistic approach can ease symptoms and improve quality of life. Location: [facility] and [place] Providers: Occupational Therapists with specialty training. Program: The LifeStyle Renewal Program is specifically tailored for each patient. This specialty program can be beneficial for a wide variety of symptoms and diagnoses, including, but not limited to: Chronic pain Cancer Asthma Depression/Anxiety Myofascial pain syndrome Chronic Fatigue Syndrome Headache/ Migraine Fibromyalgia Low back pain Irritable Bowel Syndrome Rheumatoid Arthritis Other stress related problems Our Program Focus: 1. Deal with the underlying source of pain 2. Establish a partnership between therapist and patient 3. Increase understanding - provide education 4. Use zfgh-hytg-muspcx therapies to reframe pain/symptom experience 5. Modify behaviors to improve function 6. Relieve stress 7. Set up support systems 8. Increase physical activity 9. Improve sleep Education is provided in the areas of pacing, exercise, relaxation, sleep hygiene, body mechanics, postural awareness, ergonomics, Qigong, Healing Touch, problem solving and adaptive equipment. How to Contact: General information/scheduling PRESIDENT OF ADVERTISING documented in this encounter Progress Notes Kerrie Iqbal MD - 05/25/2021 11:00 AM CST Rheumatology New Patient/Consult Note Encounter Date: 05/25/2021 Referral: Kylah Cho MD [address] [place] [address] Reason for consult: Chief Complaint Patient presents with ??? CONSULT HPI: The patient is a 56 y.o. female with medical history of type II DM, degenerative spine disease with history of cervical and lumbar fusion, and fibromyalgia presenting to our clinic today for evaluation of arthralgias and abnormal lab. Outside labs from [place] [facility] reviewed. She was previously scheduled to see rheumatology in December but had issues with the video visit. FALGUNI done at [facility] in November 2020 1:160 dense fine speckled. She had a normal ESR and CRP at that time. RF and CCP negative. She had repeat blood work done in February 2021-results uploaded in MEDIA and reviewed. FALGUNI positive with negative WILNER panel including anti chromatin, anti SM, EVENTS SOLUTIONS CONSULTANT, Scl-70, SSA, SSB. ESR and CRP normal. HLA B27 negative. RF and CCP negative. Patient states she has so much pain. Over the past 8-9 months she has been having stiffness in thehands and feels like they are swollen. Denies stressors around the time. Denies preceding illness ortrauma. She has not had COVID. She also endorses pain in the knees, ankles, hips, and feet. She wakes up with a lot of pain from the waist down. Her fingers hurt all the time. She feels a bit better with activity but then worse at the end of the day. By the time she gets home she can barely walk up the steps. Driving is painful for her. She feels very sensitive to touch. She has tried OTC options including tylenol and ibuprofen. She was given prescription strength naproxen. This did not help. She was started on gabapentin and this was recently increased and this is helping a bit. It wakes her up atnight. She did recently have a sleep study which showed she had sleep apnea. No rashes but feels dry and itchy. No ulcers in the mouth or nose. No history of eye inflammation. She does have a history of dry eye. She does have dry mouth. No history of serositis. She had a episode of acute pain in the chest last year that woke her up from sleep but resolved in 5 minutes. No raynauds. She feels like her ankles and knees get intermittently swollen. No history of stroke or seizure. She had a DVT in the past after her neck surgery. SHe was on blood thinner for a couple months. Shehas chronic constipation. No dark stools or blood in the stools. No symptoms. She has had issues with being unable to be intimate with her due to pain. She has a history of 2 lumbar surgeries in the past as well as neck surgery. She has also had a surgery on the left hip in the past but does not remember specifically what the reason was. Her daughter and mother have rheumatoid arthritis. Both her mother and daughter have fibromyalgia. She personally was diagnosed with fibromyalgia a couple years ago. She also has a history of migraine headaches. She takes sumatriptan. She has been on cymbalta for years but the dose was just recently increased. 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 ROS: Comprehensive review of systems form filled out by the patient for today's visit was reviewed, and is as noted above. Past Medical History: Past Medical History: Diagnosis Date ??? DVT (Deep Venous Thrombosis) ??? Esophageal Reflux ??? Normal Delivery times 2 ??? PLANTAR NERVE LESION 06/26/05 ??? 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 CAREPLAN: ANTI-COAGULATION 05/03/2007 Priority: Low priority Overview Note: Coumadin disc 01/27/08 ; CAREPLAN: ANTI-COAGULATION(Exp-05/01/08) ??? DVT (deep venous thrombosis) ([facility]) 05/01/2007 Priority: Low priority Class: Active Overview Note: Patient on Lovenox 100 mg bid starting 04/30/07(disc) Coumadin disc 01/27/08, started ASA 81mg daily ??? Polyp of corpus uteri 10/16/2005 ??? Excessive or frequent menstruation 10/02/2005 ??? Lesion of plantar nerve 06/26/2005 Overview Note: PLANTAR NERVE LESION ??? Cervicalgia 06/20/2004 Overview Note: C5-7 fusion...2000 ??? Contact dermatitis and eczema 04/21/2004 Overview Note: Contact dermatitis and other eczema, due to unspecified cause Past Surgical History: Past Surgical History: Procedure Laterality Date ??? DELIVERY ONLY; 1988 and tubal ligation ??? EXCISION OF GANGLION WRIST; PRIMARY 07-13-05 rt ??? L5-S1 microdiskectomy, hemilaminectomy, foraminotomy 09/13 ??? NECK SPINAL FUSION 2000 c5-c7 ??? OTHER - PROCEDURES 1984 cryo to uterine cervix ??? TONSILLECT PRIM/SEC; UNDER AGE 10 Family and Social History: Family History Problem Relation Age of Onset ??? Diabetes, Type II Mother ??? Diabetes, Type II Father ??? Coronary Artery Disease Father ??? Hypertension Mother ??? Hypertension Father ??? Other Father sky's ??? Kidney Disorder Father ??? Cancer, Breast Negative Family History ??? Cancer, Ovary Other first cousin, maternal, diagnosed about age 32 ??? Anesthesia Reaction Negative Family History ??? Bleeding Disorder Negative Family History ??? Diabetes, Type II Brother ??? Diabetes, Type II Sister Social History Substance and Sexual Activity Alcohol Use Yes Comment: rarely Social History Tobacco Use Smoking Status Never Smoker Smokeless Tobacco Not on file Current Medications: Outpatient Medications Prior to Visit Medication Sig ??? ASPIRIN 81 MG OR CHEW Take one tablet by mouth every day. ??? BUTAL/APAP/CAFFEINE (FIORICET) 50-325-40MG ORAL TABS one at start of headache;may repeat in every 2-4 hours as needed; max of 4 pills a day ??? MULTIVITAMINS OR None Entered ??? OMEPRAZOLE (PRILOSEC) 20MG ORAL CAPS One by mouth every day No facility-administered medications prior to visit. Please see most updated medications in EMR. These have been reviewed. Adverse Drug Reactions: Erythromycin Physical Examination: There were no vitals taken for this visit. General: Comfortable appearing, well developed, well nourished. HEENT: anicteric, noninjected sclerae, EOMI; no oral ulcers, erythema or exudates. Mouth appears dry. CV: regular rate and rhythm; normal heart sounds; no murmur, rubs, gallops. Resp: clear to auscultation bilaterally; no wheezing, rales, or rhonchi Abd: normal bowel sounds Skin: no rashes, ulcers, nodules. No perigungual erythema, digital ulcerations, or nail abnormalities. No evidence of scale or plaques Neuro: alert, normal muscle bulk and tone, normal gait though appears stiff with ambulation. Muscle strength 5/5 proximal and distal, upper and lower extremities. General Road Supervisor 5/5. Psych: Normal affect, normal speech. MSK: A full joint exam was performed. The joint exam was negative for joint swelling, tenderness, excessive warmth, range of motion abnormalities, or instability unless noted below: Neck: TTP of SCM b/l Shoulder: FROM bilat, no synovitis bilat, TTP of the deltoids Elbow: FROM, no synovitis bilat Wrist: FROM, no synovitis bilat, TTP right greater than left Hands: FROM, 100% fist making, good statistical machine servicer strength, there is some slight fullness more noticeable ofthe right hand in comparison to the left with herberdens and bouchards nodes with TTP of essentiallyall hand joints, worse on the right Hip: significant TTP of the trochanters b/l. Sciatica symptoms. No pain with hip flexion. Back: neg percussion pain, no pain on palpation SI joints Knees: FROM bilat, no synovitis bilat Ankles: FROM, no synovitis bilat Feet: FROM, no synovitis bilat, negative MTP squeeze Other: no obvious tender points suggestive of FMS Prior Labs and/or Imaging Reviewed: Lab Results Component Value Date WBC 7.3 05/23/2007 RBC 4.26 05/23/2007 Hemoglobin 13.3 05/23/2007 HCT 38.7 05/23/2007 MCV 90.7 05/23/2007 RDW 12.5 05/23/2007 Platelets 307 05/23/2007 Lab Results Component Value Date CREATININE 0.7 04/17/2007 Lab Results Component Value Date ALT 12 04/16/2007 Lab Results Component Value Date AST (SGOT) 21 04/16/2007 Lab Results Component Value Date Urine Clarity Clear 04/16/2007 Bilirubin, Urine Negative 04/16/2007 Blood, Urine Small (A) 04/16/2007 Glucose, Urine Qual 70 (A) 04/16/2007 Ketones, Urine Negative 04/16/2007 Leukocyte Est., Ur Negative 04/16/2007 Nitrite, Urine Negative 04/16/2007 pH, Urine 5.5 04/16/2007 Protein, Urine Qual Negative 04/16/2007 Specific [place],Ur 1.001 (L) 04/16/2007 Urobil, Urine Qual <2.0 04/16/2007 Epith, Squamous Occ 02/15/2006 WBC'S 1 04/16/2007 Bact Occ 04/16/2007 No results found for: CRP No results found for: ANASCREEN, RFQ, ESR Lab Results Component Value Date TSH, with Reflex 1.80 10/07/2005 outside labs from [facility] and [place] reviewed, noted in HPI MRI lumbar spine 10/21/2019: IMPRESSION: ?? 1. Postoperative change of L5-S1 fusion/laminectomy. 2. Postoperative change of left sacroiliac joint fusion. 3. No high-grade spinal canal or foraminal stenosis. Today's Labs and/or Imaging pending: Please see attached labs and imaging Assessment: # polyarthralgia # myofascial pain, consistent with fibromyalgia # chronic neck and back pain, history of cervical, lumbar, and left SI joint fusion # positive FALGUNI Ms. Choi is a very pleasant 56 y.o. female with with medical history of type II DM, degenerative spine disease with history of cervical and lumbar fusion, and fibromyalgia presenting to our clinic today for evaluation of arthralgias and abnormal lab. She has a longstanding history of chronic pain of multiple sites as well as history of degenerative arthritis of the spine, though notes new involvement of her hands over the past 8-9 months. Endorses pain and stiffness in the hands lasting all day with intermittent swelling-swelling is worse in the morning. Pain is variable throughout the day. She has tried OTC options without much relief. Work up done in both November and February 2021 to evaluate for inflammatory causes has been unremarkable. We reviewed her blood work in detail today. I reviewed with her that an FALGUNI is not specific for any one disease, and can be seen in the setting of rheumaticautoimmune disease, various non rheumatic autoimmune disease, as well as in the setting of no obvious underlying clinical autoimmune disease such as chronic viral infection, as a potential medication side effect, in the setting of malignancy, etc. It is more important that the FALGUNI is interpreted in context of patient's signs/symptoms. At today's visit, she denies additional signs or symptoms suggestive of a underlying CTD including rashes, eye inflammation, serositis, ulcers, raynauds. She does havesicca symptoms, headaches, and slight fullness of the right hand, though no other overt evidence of inflammatory arthritis on today's exam. Will obtain additional blood work today and x-rays of the hands. I think the most likely etiology of her symptoms is fibromyalgia. She has diffuse soft tissue tender points on today's exam as well as other symptoms including IBS symptoms, dryness, paraesthesias, dyspareunia, sensitivity to touch, and sleep disturbances. We did discuss that her recent diagnosis of sleep apnea could be contributing to her pain symptoms as well. We discussed the diagnosis of fibromyalgia and the patient was given a handout on this syndrome. We talked about contributing factors such as age, gender, stress, lack of aerobic exercise, mood disorders, genetics. The concept of central sensitization and fibromyalgia as a central neurologic pain syndrome was reviewed. I recommended consideration of a low impact aerobic exercise program, pursuing nonmedication therapies such as relaxation training, massage, acupuncture, chanel minesh. In terms of medications, we reviewed some of the most often used medications which can include tricyclics and trazodone for sleep, duloxetine (Cymbalta) and milnacipran (Savella) for mood and pain, tramadol (Ultram) for pain, gabapentin (Neurontin) or pregabalin (Lyrica) for sleep and pain, pramipexole (Mirapex) for pain, muscle relaxers. We also discussed that it is a common syndrome and medication adjustments can be made in the primary care setting. She recently had dose adjustments made to her gabapentin and duloxetine by her PCP which I agree will be beneficial. I think she would benefit from focusing on the nonpharmacologic aspects of treatment and consideration of getting seen by a pain clinic closer to home. On today's exam she endorses sciatica type symptoms so will give medrol dospak. Advised to monitor if her hands and other sym[toms improve as well. I would like her to take pictures of the hands when they are swollen. Will plan on follow up in 8 weeks. Plan: - blood work today - x-rays hands - medrol dospak - hand out given and reviewed on fibromyalgia - consider referral to pain clinic - follow up in 8 weeks Advised to call if symptoms worsen or fail to improve or if new concerns arise. Plan discussed with the patient in detail. Verbalized understanding and agreement with plan. All questions answered. Kerrie Iqbal MD Rheumatology [place] Flex Billing based on: time Total time for the visit was 65 minutes including, but not limited to, [id number] time spent reviewing records, counseling, and coordination of care. Thank you for involving me in this patient's care. This note was dictated using voice recognition software. There may be sound- alike and/or punctuationerrors. Copy to Kylah Cho MD [address] [place] [id number] PRESIDENT OF ADVERTISING documented in this encounter Plan of Treatment Not on filedocumented as of this encounter Results XR Hands 1 View Bilat Arthritis (05/25/2021 12:24 PM VICE PRESIDENT OF ADVERTISING) Anatomical Region Laterality Modality Upper Extremity, Hand Digital Radiograph y Specimen (Source) Anatomical Collection Method Collection Time Re ceived Time Location / / Volume Laterality 05/25/2021 12:19 PM VICE PRESIDENT OF ADVERTISING Impressions 05/25/2021 2:16 PM VICE PRESIDENT OF ADVERTISING COMPARISON: ??None. FINDINGS: ??Single view bilateral AP [...] otherwise unremarkable. Kerrie Iqbal MD RAD GD CPK - CK Total (05/25/2021 12:16 PM VICE PRESIDENT OF ADVERTISING) P athologist Signature CK, Total 64 29 - 168 05/25/2021 [place] U/L 3:03 PM VICE PRESIDENT OF ADVERTISING LABORATORY Specimen Anatomical Collection Method / Collection Time Recei terell Time (Source) Location / Volume Laterality Blood Venipuncture / 05/25/2021 12:16 1 Unknown PM VICE PRESIDENT OF ADVERTISING 12:16 PM VICE PRESIDENT OF ADVERTISING Kerrie Iqbal MD LAB_1 Performing Organization Address [facility] Phon e Narayan [facility] [address] [place] [address] ESR - Sedimentation Rate (05/25/2021 12:16 PM VICE PRESIDENT OF ADVERTISING) Patholo gist Method Time Signature Sedimentation Rate 6 0 - 20 05/25/2021 [place] mm/hr 12:56 PM VICE PRESIDENT OF ADVERTISING LABORATORY Specimen Anatomical Collection Method / Collection Time Recei terell Time (Source) Location / Volume Laterality Blood Venipuncture / 05/25/2021 12:16 1 Unknown PM VICE PRESIDENT OF ADVERTISING 12:16 PM VICE PRESIDENT OF ADVERTISING Kerrie Iqbal MD LAB_1 Performing Organization Address City/[facility] jeramie [facility] [address] [place] [address] MPD-Rqip-ZA-DNA by Kirstie Assay (05/25/2021 12:16 PM VICE PRESIDENT OF ADVERTISING) P athologist Signature Anti-dsDNA Ab <8.0 <8.0 IU/mL 06/03/2021 [facility] (Kirstie Assay) 5:06 PM VICE PRESIDENT OF ADVERTISING INTERFACED Specimen Anatomical Collection Method / Collection Time Recei terell Time (Source) Location / Volume Laterality Blood Venipuncture / 05/25/2021 12:16 1 Unknown PM VICE PRESIDENT OF ADVERTISING 12:16 PM VICE PRESIDENT OF ADVERTISING Narrative [facility] INTER[facility]AC[facility] - 06/03/2021 5:06 PM VICE PRESIDENT OF ADVERTISING Test(s) [id number] Ab by Kirstie(RDL) was developed and its performance charac teristics determined by [facility]. It has not been cleared or a pproved by the Food and Drug Administration. Performed at: ??01 - [facility] [address] [place] [address] A ??[id number] Route Aide: Vadim Palacios MD, Phone: ? ?[phone] Kerrie Iqbal MD LAB_1 Performing Organization Address City/State/ZIP Code Phon e Number [facility] INTERFACED [address] [address] [place] [address] CRP - C Reactive Protein (05/25/2021 12:16 PM VICE PRESIDENT OF ADVERTISING) P athologist Signature C-Reactive <0.5 0.0 - 0.7 05/25/2021 [place] Protein mg/dL 3:03 PM VICE PRESIDENT OF ADVERTISING LABORATORY Specimen Anatomical Collection Method / Collection Time Recei terell Time (Source) Location / Volume Laterality Blood Venipuncture / 05/25/2021 12:16 1 Unknown PM VICE PRESIDENT OF ADVERTISING 12:16 PM VICE PRESIDENT OF ADVERTISING Kerrie Iqbal MD LAB_1 Performing Organization Address City/State/ZIP Code Phon e Number [facility] [address] [place] [address] documented in this encounter Visit Diagnoses Diagnosis Arthralgia, unspecified joint - Primary Fibromyalgia Mylagia and myositis, unspecified Chronic neck pain with history of cervic al spinal surgery Chronic low back pain with sciatica, sci atica laterality unspecified, unspecified back pain laterality ([facility]) Positive FALGUNI (antinuclear antibody) Other and unspecified nonspecific immuno logical findings Arthralgia, unspecified joint Fibromyalgia Mylagia and myositis, unspecified documented in this encounter Care Teams Channel Account Manager Relationship Specialty Start Date End Date Unassigned, Provider PCP - General 09/18/08 [address] [place] [address] documented as of this encounter
--- OUTSIDE RECORDS SUMMARY | 2022-01-17 22:21 | XMS_ITS | Encounter Summary ---
:1965 Author Organization [facility] Address [address] [address] Care Team Providers Name Role Phone Jose Colin DO Primary Care Provider [phone] Encounter Details Date Type Department Care Team Description 10/16/2007 Anticoagulation [facility] Internal Med Laura Martinez [address] [facility] Aleyda, [place] [address] [facility] [phone] [address] [place], [place] [address] (Wo rk) Social History Tobacco Use Types Packs/Day Years Used Date Smoking Tobacco: Never Alcohol Use Standard Drinks/Week Comments Yes 0 (1 standard drink = 0.6 oz pure alcoho l) rarely Sex Assigned at Date Recorded Not on file documented as of this encounter Progress Notes Laura Pedraza, RN - 10/16/2007 3:32 PM CDT See Anticoagulation Flowsheet for details. Laura Puente RN documented in this encounter Plan of Treatment Not on filedocumented as of this encounter Visit Diagnoses Not on filedocumented in this encounter Care Teams Industrial Machine System Technician Relationship Specialty Start Date End Date Jose Colin, PCP - General 12/24/03 09/17/08 [address] [place] [address] documented as of this encounter
--- OUTSIDE RECORDS SUMMARY | 2022-01-17 22:21 | XMS_ITS | Encounter Summary ---
:1965 Author Organization [facility] Address [address], [place] [address] Care Team Providers Name Role Phone Jose Colin DO Primary Care Provider [phone] Encounter Details Date Type Department Care Team Description 08/28/2007 Orders Only Health Specialty [facility] ter Radiology [address] [place] [address] Social History Tobacco Use Types [...] on filedocumented in this encounter Care Teams Manager Property Relationship Specialty Start Date End Date Jose Colin DO PCP - General 12/24/03 09/17/08 [address] [place] [address] documented as of this encounter
--- OUTSIDE RECORDS SUMMARY | 2022-01-17 22:21 | XMS_ITS | Encounter Summary ---
:1965 Author Organization [facility] Address [address], [place] [address] Care Team Providers Name Role Phone Jose Colin DO Primary Care Provider [phone] Encounter Details Date Type Department Care Team Description 11/23/2007 Orders Only Health Specialty Rashad ter Radiology [address] [place] [address] Social History Tobacco Use Types Packs/Day Years Used Date Smoking Tobacco: Never Alcohol Use Standard Drinks/Week Comments Yes 0 (1 standard drink = 0.6 oz pure alcoho l) rarely Sex Assigned at Date Recorded Not on file documented as of this encounter Plan of Treatment Scheduled Referrals Name Type Priority Associated Diagnoses Order S chedule ABDOMEN ULTRASOUND Referral Routine Abdominal Pain, Right Upper Ordered: 11/19/2007 [place] documented as of this encounter Visit Diagnoses Not on filedocumented in this encounter Care Teams Supervisor Varnish Relationship Specialty Start Date End Date Jose Colin DO PCP - General 12/24/03 09/17/08 [address] [place] [address] documented as of this encounter
--- OUTSIDE RECORDS SUMMARY | 2022-01-17 22:21 | XMS_ITS | Encounter Summary ---
:1965 Author Organization [facility] Address [address] [address] Care Team Providers Name Role Phone Jose Colin DO Primary Care Provider [phone] Encounter Details Date Type Department Care Team Description 10/23/2007 Anticoagulation [facility] Internal Med Laura Martinez [address] [facility] Aleyda, [place] [address] [facility] [phone] [address] [place], [place] [address] (Wo rk) Social History Tobacco Use Types Packs/Day Years Used Date Smoking Tobacco: Never Alcohol Use Standard Drinks/Week Comments Yes 0 (1 standard drink = 0.6 oz pure alcoho l) rarely Sex Assigned at Date Recorded Not on file documented as of this encounter Progress Notes Laura Pedraza, RERE - 10/23/2007 1:28 PM CDT See Anticoagulation Flowsheet for details. Laura Puente RN documented in this encounter Plan of Treatment Not on filedocumented as of this encounter Visit Diagnoses Not on filedocumented in this encounter Care Teams Dynamometer Tester Engine Relationship Specialty Start Date End Date Jose Colin, PCP - General 12/24/03 09/17/08 [address] [place] [address] documented as of this encounter
--- OUTSIDE RECORDS SUMMARY | 2022-01-17 22:21 | XMS_ITS | Encounter Summary ---
:1965 Author Organization [facility] Address [address], [place] [address] Care Team Providers Name Role Phone Jose Colin DO Primary Care Provider [phone] Encounter Details Date Type Department Care Team Description 10/08/2007 [facility] Internal Med arnel Puente Laura [address] [facility], [place] [address] [facility] [phone] [address] [place] [address] (Wo rk) Social History Tobacco Use Types Packs/Day Years Used Date Smoking Tobacco: Never Alcohol Use Standard Drinks/Week Comments Yes 0 (1 standard drink = 0.6 oz pure alcoho l) rarely Sex Assigned at Date Recorded Not on file documented as of this encounter Progress Notes Wilda Anand - 10/08/2007 2:42 PM CDT See Anticoagulation Flowsheet for details. Wilda Burch RN documented in this encounter Plan of Treatment Not on filedocumented as of this encounter Visit Diagnoses Not on filedocumented in this encounter Care Teams Flooring Salesperson Relationship Specialty Start Date End Date Jose Colin DO PCP - General 12/24/03 09/17/[address] [place] [id number] documented as of this encounter
--- OUTSIDE RECORDS SUMMARY | 2022-01-17 22:21 | XMS_ITS | Encounter Summary ---
:1965 Author Organization [facility] [address] [place] [address] Care Team Providers Name Role Phone Jose Colin DO Primary Care Provider [phone] Reason for Referral Specialty Diagnoses / Procedures Referred By Contact Refer red To Contact Jose Colin DO [address] [place], [place] [address]258 Referral ID Status Reason Start Date Expiration Date Visits Requ ested Visits Authorized Scheduling Instructions If an appointment with Replaced by [facility] was advised and you have not been contacted to schedule that appointm ent within 3 business days, please call [phone] for assistance. Specialty Diagnoses / Procedures Referred By Contact Refer olga To Contact Jose Colin DO [address] [place], [place] [address]405 Referral ID Status Reason Start Date Expiration Date Visits Requ ested Visits Authorized Reason for Visit Reason Comments HEADACHE,MIGRAINE f/u visit DIFFICULTY SWALLOWING and digestive problems CHEST SYMPTOMS a weight and cold feeling CONSULT about the clot and tx Encounter Details Date Type Department Care Team Description 08/23/2007 Office Visit [facility] Internal [place] DVT (Deep V enous Thrombosis) (Primary Dx); Medicine Jose Allan DO Migraine; [facility] [address] Diarrhea; [place] [address] [facility] [phone] [address] Social History Tobacco Use Types Packs/Day Years Used Date Smoking Tobacco: Never Alcohol Use Standard Drinks/Week Comments Yes 0 (1 standard drink = 0.6 oz pure alcoho l) rarely Sex Assigned at Date Recorded Not on file documented as of this encounter Last Filed Vital Signs Vital Sign Reading Time Taken Comments Blood Pressure 130/80 08/23/2007 1:13 PM CDT Pulse 68 08/23/2007 1:13 PM CDT Temperature 36.6 ??C (97.9 ??F) 08/23/2007 1:13 PM CDT Respiratory Rate 16 08/23/2007 1:13 PM CDT Oxygen Saturation 97% 08/23/2007 1:13 PM CDT Inhaled Oxygen Concentration - - Weight 91.2 kg (201 lb) 08/23/2007 1:13 PM CDT Height 160 cm (5' 3) 08/23/2007 1:13 PM CDT Body Mass Index 35.61 08/23/2007 1:13 PM CDT documented in this encounter Progress Notes Jose Colin - 08/23/2007 2:05 PM CDT OFFICE NOTE: Megan Choi is a 42 yr old female who presents for several issues: Encounter Diagnoses Code Name Primary? Qualifier ??? 453.40U DVT (Deep Venous Thrombosis) - Discussed at length; talked about anatomy, physiology, pathophysiology, treatment meds and duration of treatment; The patient indicated that she understood. Yes Comment: Patient on Lovenox 100 mg bid starting 04/30/07 ??? 346.90A Migraine - pt has h/o migraines for years. Recently has been having 2-3 a week and they can last 12+ hours; she takes tylenol with no relief. She denies any nueological complaints with the headaches. She is not having one now. We discussed abortive vs prophylactic therapy; will try seom fioricet for now; talked about looking for triggers; not a/w her periods. Has never had an imaging study Plan: CT HEAD (ADULT), BUTAL/APAP/CAFFEINE (FIORICET) 50-325-40MG ORAL TABS ??? 787.91 Diarrhea - approx once a day after a meal - not always the same meal or the same foods; seh'll have diarrhea approx 1 to 4 hours later. No real abdominl pain. This has been going on for almost a year but has been more frequent the last several months. Refer to GI Plan: GASTROENTEROLOGY CONSULT - ADULTS ??? 787.20G Dysphagia - despite being on prilosec (which helps for her gerd), she is starting to experience some dysphagia with any type of food; discussed seeing GI for a possible EGD Plan: GASTROENTEROLOGY CONSULT - ADULTS Abd is soft, NT, +BS Total time spent with the patient today was 26 minutes. Of this time, 24 minutes were spent counseling her on the above issues and coordinating her care. Jose Colin DO 1:59 PM 08/23/2007 documented in this encounter Plan of Treatment Not on filedocumented as of this encounter Visit Diagnoses Diagnosis DVT (deep venous thrombosis) ([facility]) - [facility] Acute venous embolism and thrombosis of unspecified deep vessels of lower extremity Migraine Migraine, unspecified, without mention o f intractable migraine without mention of status migrainosus Diarrhea Dysphagia Dysphagia, unspecified documented in this encounter Care Teams Branch Rental Manager Relationship Specialty Start Date End Date Jose Colin DO PCP - General 12/24/03 09/17/08 [address] [place] [address] documented as of this encounter
--- OUTSIDE RECORDS SUMMARY | 2022-01-17 22:21 | XMS_ITS | Encounter Summary ---
:1965 Author Organization [facility] Address [address] [address] Care Team Providers Name Role Phone Jose Colin DO Primary Care Provider [phone] Encounter Details Date Type Department Care Team Description 08/26/2007 [facility] Internal Med Wilda Burton RN [address] [place] [address] [address] [phone] [place], [place] [address] Social History Tobacco Use Types Packs/Day Years Used Date Smoking Tobacco: Never Alcohol Use Standard Drinks/Week Comments Yes 0 (1 standard drink = 0.6 oz pure alcoho l) rarely Sex Assigned at Date Recorded Not on file documented as of this encounter Progress Notes Wilda Anand - 08/26/2007 1:16 PM CDT See Anticoagulation Flowsheet for details. Wilda Burch RN documented in this encounter Plan of Treatment Not on filedocumented as of this encounter Visit Diagnoses Not on filedocumented in this encounter Care Teams Field Merchandiser Relationship Specialty Start Date End Date Jose Colin, PCP - General 12/24/03 09/17/[address] [place] [address] documented as of this encounter
--- OUTSIDE RECORDS SUMMARY | 2022-01-17 22:21 | XMS_ITS | Encounter Summary ---
:1965 Author Organization [facility] Address [address] [place] [address] Care Team Providers Name Role Phone Jose Stack DO Primary Care Provider [phone] Reason for Visit Reason Onset Date Comments Refill 09/23/2007 Encounter Details Date Type Department Care Team Description 09/23/2007 Refill [facility] Internal Med Wilda Burton RN Refill [address] [place] [address] [address] [phone] [place], [place] [address] Social History Tobacco Use Types Packs/Day Years Used Date Smoking Tobacco: Never Alcohol Use Standard Drinks/Week Comments Yes 0 (1 standard drink = 0.6 oz pure alcoho l) rarely Sex Assigned at Date Recorded Not on file documented as of this encounter Nursing Notes Wilda Anand - 09/24/2007 9:18 AM CDT Pt notified of Rx, should f/u if further refills are needed Wilda Anand - 09/23/2007 5:00 PM CDT LMTRC Jose Stack - 09/23/2007 4:57 PM CDT Approved Prescriptions: Disp Refills BUTAL/APAP/CAFFEINE (FIORICET) 50-325-40MG 30 0 Sig: one at start of headache;may repeat in every 2-4 hours as needed; max of 4 pills a day Authorizing Provider: JOSE STACK Wilda Anand - 09/23/2007 12:26 PM CDT Pt calling to let Dr know that Delma is very helpful for her HAs, would like refill, will have Dr review and call with recomm documented in this encounter Plan of Treatment Not on filedocumented as of this encounter Visit Diagnoses Diagnosis Migraine Migraine, unspecified, without mention o f intractable migraine without mention of status migrainosus documented in this encounter Care Teams Food Services Manager Relationship Specialty Start Date End Date Jose Stack, PCP - General 12/24/03 09/17/[address] [place] [address] documented as of this encounter
--- OUTSIDE RECORDS SUMMARY | 2022-01-17 22:21 | XMS_ITS | Encounter Summary ---
:1965 Author [facility] Address [address] [place] [address] Care Team Providers Name Role Phone Jose Colin DO Primary Care Provider [phone] Encounter Details Date Type Department Care Team Description 10/03/2007 Orders Only [facility] DVT (Deep Venous [address] Thrombosis) [place], [place] [id number] Social History Tobacco Use Types Packs/Day Years [...] Associated Diagnosis Comme nts INR/PROTIME Same Day 10/03/2007 7:27 AM DVT (Deep Venous Resul ts for this CDT Thrombosis) procedure are i n the results section . documented in this encounter Results (ABNORMAL) INR/PROTIME (10/03/2007 7:27 AM CDT) P athologist Signature Protime 17.9 (H) 12.0 - [facility] 14.5 sec Coumadin Yes [facility] INR 1.4 [facility] Specimen Anatomical Collection Method Collection Time Receive d Time (Source) Location / / Volume Laterality 10/03/2007 7:27 AM 8 7:28 CDT AM CDT Jose Colin DO LAB_1 Performing Organization Address City/State/ZIP Code Phon e Number [facility] [phone] [facility] [address] [address] documented in this encounter Visit Diagnoses Diagnosis DVT (deep venous thrombosis) ([facility]) Acute venous embolism and thrombosis of unspecified deep vessels of lower extremity documented in this encounter Care Teams Gas Flow Regulator Relationship Specialty Start Date End Date Jose Colin DO PCP - General 12/24/03 09/17/08 [address] [place] [address] documented as of this encounter
--- OUTSIDE RECORDS SUMMARY | 2022-01-17 22:21 | XMS_ITS | Encounter Summary ---
:1965 [facility] Address [address] [place] [address] Care Team Providers Name Role Phone Jose Colin DO Primary Care Provider [phone] Encounter Details Date Type Department Care Team Description 08/26/2007 Orders Only [facility] DVT (Deep Venous [address] Thrombosis) [place], [place] [id number] Social History Tobacco Use Types Packs/Day Years [...] Associated Diagnosis Comme nts INR/PROTIME Same Day 08/26/2007 7:44 AM DVT (Deep Venous Resul ts for this CDT Thrombosis) procedure are i n the results section . documented in this encounter Results (ABNORMAL) INR/PROTIME (08/26/2007 7:44 AM CDT) P athologist Signature Protime 31.3 (H) 12.0 - [facility] 14.5 sec Coumadin Yes [facility]9 [facility] Specimen Anatomical Collection Method Collection Time Receive d Time (Source) Location / / Volume Laterality 08/26/2007 7:44 AM 8 7:45 CDT AM CDT Jose Coiln DO LAB_1 Performing Organization Address City/State/ZIP Code Phon e Number [facility] [phone] [facility] [address] [address] documented in this encounter Visit Diagnoses Diagnosis DVT (deep venous thrombosis) ([facility]) Acute venous embolism and thrombosis of unspecified deep vessels of lower extremity documented in this encounter Care Teams Boat Painter Relationship Specialty Start Date End Date Jose Colin DO PCP - General 12/24/03 09/17/08 [address] [place] [address] documented as of this encounter
--- OUTSIDE RECORDS SUMMARY | 2022-01-17 22:21 | XMS_ITS | Encounter Summary ---
:1965 Author Organization [facility] Address [address], [place] [address] Care Team Providers Name Role Phone Jose Colin DO Primary Care Provider [phone] Encounter Details Date Type Department Care Team Description 10/03/2007 [facility] Internal Med Wilda Burton RN 205 [place] [address] [address] [phone] [place], [place] [address] Social History Tobacco Use Types Packs/Day Years Used Date Smoking Tobacco: Never Alcohol Use Standard Drinks/Week Comments Yes 0 (1 standard drink = 0.6 oz pure alcoho l) rarely Sex Assigned at Date Recorded Not on file documented as of this encounter Progress Notes Wilda Anand - 10/03/2007 3:14 PM CDT See Anticoagulation Flowsheet for details. Wilda Burch RN documented in this encounter Plan of Treatment Not on filedocumented as of this encounter Visit Diagnoses Not on filedocumented in this encounter Care Teams Rotating Equipment Engineer Relationship Specialty Start Date End Date Jose Colin, PCP - General 12/24/03 09/17/[address] [place] [address] [address] documented as of this encounter
--- OUTSIDE RECORDS SUMMARY | 2022-01-17 22:21 | XMS_ITS | Encounter Summary ---
:1965 Author Organization [facility] Address [address], [place] [address] Care Team Providers Name Role Phone Jose Colin DO Primary Care Provider [phone] Encounter Details Date Type Department Care Team Description 09/23/2007 [facility] Internal Med Wilda Burton RN [address] [place] [address] [address] [phone] [place], [place] [address] Social History Tobacco Use Types Packs/Day Years Used Date Smoking Tobacco: Never Alcohol Use Standard Drinks/Week Comments Yes 0 (1 standard drink = 0.6 oz pure alcoho l) rarely Sex Assigned at Date Recorded Not on file documented as of this encounter Progress Notes Wilda Anand - 09/23/2007 12:24 PM CDT See Anticoagulation Flowsheet for details. Wilda Burch RN documented in this encounter Plan of Treatment Not on filedocumented as of this encounter Visit Diagnoses Not on filedocumented in this encounter Care Teams Child Support Case Officer Relationship Specialty Start Date End Date Jose Colin, PCP - General 12/24/03 09/17/[address] [place] [address] [address] documented as of this encounter
--- OUTSIDE RECORDS SUMMARY | 2022-01-17 22:21 | XMS_ITS | Encounter Summary ---
:1965 Author Organization [facility] Address [address] [place] [address] Care Team Providers Name Role Phone Jose Colin DO Primary Care Provider [phone] Reason for Visit Reason Onset Date Comments Careplan: Anticoagulation 09/24/2007 Encounter Details Date Type Department Care Team Description 09/24/2007 Telephone [facility] Internal Setphanie Colinplan: [facility] Medicine Jose Allan DO [address] [facility] [address] [place] [address] [place], [place] [phone] [address] Social History Tobacco Use Types Packs/Day Years Used Date Smoking Tobacco: Never Alcohol Use Standard Drinks/Week Comments Yes 0 (1 standard drink = 0.6 oz pure alcoho l) rarely Sex Assigned at Date Recorded Not on file documented as of this encounter Nursing Notes Wilda Anand - 09/24/2007 9:17 AM CDT Pt notified Butab has been refilled Emmie Lake - 09/24/2007 8:36 AM CDT Returning call from Wilda Lopez. documented in this encounter Plan of Treatment Not on filedocumented as of this encounter Visit Diagnoses Not on filedocumented in this encounter Care Teams Motor Vehicle Field Representative Relationship Specialty Start Date End Date Jose Colin DO PCP - General 12/24/03 09/17/08 [address] [place] [address] documented as of this encounter
--- OUTSIDE RECORDS SUMMARY | 2022-01-17 22:21 | XMS_ITS | Encounter Summary ---
:1965 Author [facility] Address [address] [place] [address] Care Team Providers Name Role Phone Jose Colin DO Primary Care Provider [phone] Encounter Details Date Type Department Care Team Description 10/23/2007 Orders Only [facility] DVT (Deep Venous [address] Thrombosis) [place], [place] [id number] Social History Tobacco Use Types Packs/Day Years [...] Associated Diagnosis Comme nts INR/PROTIME Same Day 10/23/2007 7:31 AM DVT (Deep Venous Resul ts for this CDT Thrombosis) procedure are i n the results section . documented in this encounter Results (ABNORMAL) INR/PROTIME (10/23/2007 7:31 AM CDT) P athologist Signature Protime 20.9 (H) 12.0 - [facility] 14.5 sec Coumadin Yes [facility] 1.7 [facility] Specimen Anatomical Collection Method Collection Time Receive d Time (Source) Location / / Volume Laterality 10/23/2007 7:31 AM 8 7:33 CDT AM CDT Jose Colin DO LAB_1 Performing Organization Address City/State/ZIP Code Phon e Number [facility] [phone] [facility] [address] [address] documented in this encounter Visit Diagnoses Diagnosis DVT (deep venous thrombosis) ([facility]) Acute venous embolism and thrombosis of unspecified deep vessels of lower extremity documented in this encounter Care Teams Cribber Relationship Specialty Start Date End Date Jose Colin DO PCP - General 12/24/03 09/17/08 [address] [place] [address] documented as of this encounter
--- OUTSIDE RECORDS SUMMARY | 2022-01-17 22:21 | XMS_ITS | Encounter Summary ---
:1965 Author Organization [facility] Address [address] [place] [address] Care Team Providers Name Role Phone Jose Colin DO Primary Care Provider [phone] Encounter Details Date Type Department Care Team Description 10/08/2007 Orders Only [facility] DVT (Deep Venous [address] Thrombosis) [place], [place] [id number] Social History Tobacco Use Types Packs/Day Years [...] Associated Diagnosis Comme nts INR/PROTIME Same Day 10/08/2007 7:40 AM DVT (Deep Venous Resul ts for this CDT Thrombosis) procedure are i n the results section . documented in this encounter Results (ABNORMAL) INR/PROTIME (10/08/2007 7:40 AM CDT) P athologist Signature Protime 19.0 (H) 12.0 - [facility] 14.5 sec Coumadin Yes [facility] INR 1.5 [facility] Specimen Anatomical Collection Method Collection Time Receive d Time (Source) Location / / Volume Laterality 10/08/2007 7:40 AM 8 7:41 CDT AM CDT Jose Colin DO LAB_1 Performing Organization Address City/State/ZIP Code Phon e Number [facility] [phone] [facility] [address] [address] documented in this encounter Visit Diagnoses Diagnosis DVT (deep venous thrombosis) ([facility]) Acute venous embolism and thrombosis of unspecified deep vessels of lower extremity documented in this encounter Care Teams Walnut Dehydrator Operator Relationship Specialty Start Date End Date Jose Colin DO PCP - General 12/24/03 09/17/08 [address] [place] [address] documented as of this encounter
--- OUTSIDE RECORDS SUMMARY | 2022-01-17 22:21 | XMS_ITS | Encounter Summary ---
:1965 Author Organization [facility] Address [address] [place] [address] Care Team Providers Name Role Phone Jose Colin DO Primary Care Provider [phone] Encounter Details Date Type Department Care Team Description 08/26/2007 Orders Only [facility] Internal Med icine Jose Colin, [address] [place] [address] [address] [facility] [address] [place] [address] (Wo rk) Social History Tobacco Use Types Packs/Day Years Used Date Smoking Tobacco: Never Alcohol Use Standard Drinks/Week Comments Yes 0 (1 standard drink = 0.6 oz pure alcoho l) rarely Sex Assigned at Date Recorded Not on file documented as of this encounter Progress Notes Jose Colin - 08/29/2007 5:42 PM CDT Quick Note: please call the patient Ct of head is normal Jose Colin DO 5:42 PM 08/29/2007 documented in this encounter Plan of Treatment Not on filedocumented as of this encounter Procedures Procedure Name Priority Date/Time Associated Diagnosis Comme nts CT SCAN HEAD Routine 08/28/2007 5:26 PM Results f or this WITHOUT IV CONTRAST CDT procedur e are in the results section. documented in this encounter Results CT SCAN HEAD WITHOUT IV CONTRAST (08/28/2007 5:26 PM CDT) Anatomical Region Laterality Modality Other Specimen (Source) Anatomical Collection Method Collection Time Re ceived Time Location / / Volume Laterality 08/28/2007 5:26 PM CDT Impressions 08/30/2007 9:35 AM CDT IMPRESSION: No CT evidence for acute intracranial ab normality. ??CT head within normal limits. Narrative 08/30/2007 9:[address] HEAD..HEADACHE..COMPLICATION OF SINUSITIS AND MASTOIDITIS...HPSP#50 CT HEAD, 08/28/07 AT 1722 HOURS. INDICATION: ??Headache. TECHNIQUE: ??Routine head. COMPARISON: ??None. FINDINGS: ??The lateral, 3rd, and 4th ve ntricles are normal in size. Septum pellucidum is midline. ??There is no CT evidence for acute infarction, mass lesion, or intracranial hemorrhage. ??Basal cisterns are patent. ??Suggest mild tons illar ectopia. ??Mastoid air cells and visualized paranasal sinuses a ppear well pneumatized. Jose Colin DO RAD CT/RH documented in this encounter Visit Diagnoses Not on filedocumented in this encounter Care Teams Commercial Instructor Supervisor Relationship Specialty Start Date End Date Jose Colin DO PCP - General 12/24/03 09/17/08 [address] [place] [address] documented as of this encounter
--- OUTSIDE RECORDS SUMMARY | 2022-01-17 22:21 | XMS_ITS | Encounter Summary ---
:1965 Author Organization [facility] Address [address] [place] [address] Care Team Providers Name Role Phone DixieJose Jerrell BOOGIE Primary Care Provider [phone] Reason for Referral Specialty Diagnoses / Procedures Referred By Contact Refer red To Contact Thaddeus Ro MD [address] [place] [address] Referral ID Status Reason Start Date Expiration Date Visits Requ ested Visits Authorized Reason for Visit Reason Comments LOOSE STOOLS Encounter Details Date Type Department Care Team Description 11/19/2007 Office Visit [facility] Thaddeus Ro, Ashleyo omega Pain, Right [facility] [address] (Primary Dx) [address] [place] [address] Social History Tobacco Use Types Packs/Day Years Used Date Smoking Tobacco: Never Alcohol Use Standard Drinks/Week Comments Yes 0 (1 standard drink = 0.6 oz pure alcoho l) rarely Sex Assigned at Date Recorded Not on file documented as of this encounter Last Filed Vital Signs Vital Sign Reading Time Taken Comments Blood Pressure 130/78 11/19/2007 3:04 PM CDT Pulse 76 11/19/2007 3:04 PM CDT Temperature 36.8 ??C (98.2 ??F) 11/19/2007 3:04 PM CDT Respiratory Rate - - Oxygen Saturation - - Inhaled Oxygen Concentration - - Weight 89.8 kg (198 lb) 11/19/2007 3:04 PM CDT Height - - Body Mass Index 35.07 08/23/2007 1:13 PM CDT documented in this encounter Patient Instructions Patient InstructionsWayne Awan - 11/19/2007 3:30 PM CDT Abdominal Ultrasound. This is scheduled for SundayNovember 22 at 1:30pm. Nothing to eat or drink 8 hours prior, this is done over at the [address] [place] [address] on [facility]. If you need to cancel or reschedule please call [phone]. If you have any questions or concerns please call [phone]. Option 3 for the nurse line. documented in this encounter Progress Notes Thaddeus Ro - 11/20/2007 2:03 PM CDT DATE OF SERVICE: 11/19/2007 INITIAL CONSULTATION NOTE Patient is being referred to me by Dr. Colin for abdominal pain and diarrhea. The patient reports significant dyspepsia secondary to dairy products or greasy foods. The patient reports a sore stomach and some nausea. She denies any vomiting, however. PAST MEDICAL HISTORY: One of deep venous thrombosis, status post back surgery and neck surgery, section and history of migraine. HABITS: The patient denies tobacco or alcohol use. ALLERGIES: THE PATIENT REPORTS BEING ALLERGIC TO ERYTHROMYCIN. REVIEW OF SYSTEMS: Reveals stable weight, no melena or hematochezia. PHYSICAL EXAM: Reveals vitals as in the Epic chart. Abdominal exam reveals an obese abdomen with right upper quadrant tenderness on deep palpation. There is a suggestion of a positive Leyva's sign. There is no visceromegaly, however. There is no CVA or spinal tenderness. There is a well-healed lowerspine scar, however. IMPRESSION: The patient most likely has cholecystitis and this would account for her dyspeptic symptoms. RECOMMENDATION: I will start by checking a right upper quadrant ultrasound. If this unremarkable, then I will follow up with a hepatobiliary scan to rule out acalculous cholecystitis. The patient has my number to call after the ultrasound is done to go over the results and for further recommendations. MD joel Garner Dictated: 11/19/2007 15:40:18 Transcribed: 11/20/2007 13:41:47 Doc #: [id number] cc:Jose Colin DO, Referring Physician 1 Page 1 Patient Name: MEGAN CHOI Visit Date: 11/19/2007 CONFIDENTIAL MEDICAL RECORD [address] [address] Page 1 Patient: MEGAN CHOI Location: [facility] HPN: [id number] Visit Date: 11/19/2007 Date of : 1965 Age: 42Y Thaddeus Ro - 11/19/2007 3:46 PM CDT This office note has been dictated. Thaddeus Ro MD documented in this encounter Plan of Treatment Scheduled Referrals Name Type Priority Associated Diagnoses Order S chedule ABDOMEN ULTRASOUND Referral Routine Abdominal Pain, Right Upper Ordered: 11/19/2007 Quadrant documented as of this encounter Visit Diagnoses Diagnosis Abdominal pain, right upper quadrant - P rimary documented in this encounter Care Teams Security And Compliance Project Manager Relationship Specialty Start Date End Date Jose Colin DO PCP - General 12/24/03 09/17/08 [address] [place] [address] documented as of this encounter
--- OUTSIDE RECORDS SUMMARY | 2022-01-17 22:21 | XMS_ITS | Encounter Summary ---
:1965 Author [facility] Address [address] [place] [address] Care Team Providers Name Role Phone Jose Colin DO Primary Care Provider [phone] Encounter Details Date Type Department Care Team Description 10/29/2007 Orders Only [place] [facility] DVT (Deep Venous [address] [place] [address] St. S. Thrombosis) [place], [place] [id number] Social History Tobacco Use Types Packs/Day Years [...] Associated Diagnosis Comme nts INR/PROTIME Same Day 10/29/2007 7:50 AM DVT (Deep Venous Resul ts for this CDT Thrombosis) procedure are i n the results section . documented in this encounter Results (ABNORMAL) INR/PROTIME (10/29/2007 7:50 AM CDT) P athologist Signature Protime 23.4 (H) 12.0 - [facility] 14.5 sec Coumadin Yes [facility] INR 2.0 [facility] Specimen Anatomical Collection Method Collection Time Receive d Time (Source) Location / / Volume Laterality 10/29/2007 7:50 AM 8 7:51 CDT AM CDT Jose Colin DO LAB_1 Performing Organization Address City/State/ZIP Code Phon e Number [facility] [phone] [facility] [address] [address] documented in this encounter Visit Diagnoses Diagnosis DVT (deep venous thrombosis) ([facility]) Acute venous embolism and thrombosis of unspecified deep vessels of lower extremity documented in this encounter Care Teams Data Control Assistant Relationship Specialty Start Date End Date Jose Colin DO PCP - General 12/24/03 09/17/08 [address] [place] [address] documented as of this encounter
--- OUTSIDE RECORDS SUMMARY | 2022-01-17 22:21 | XMS_ITS | Encounter Summary ---
:1965 Author Organization [facility] Address [address] [place] [address] Care Team Providers Name Role Phone Jose Colin DO Primary Care Provider [phone] Reason for Visit Reason Onset Date Comments RESULTS, TEST 08/30/2007 Encounter Details Date Type Department Care Team Description 08/30/[address] [facility] Jose Witt, RESULTS, TEST [address] [place] [address] 740 [facility] [phone] [place] [address] (Wo rk) Social History Tobacco Use Types Packs/Day Years Used Date Smoking Tobacco: Never Alcohol Use Standard Drinks/Week Comments Yes 0 (1 standard drink = 0.6 oz pure alcoho l) rarely Sex Assigned at Date Recorded Not on file documented as of this encounter Nursing Notes Schuyler Jasso - 08/30/2007 3:35 PM CDT Spoke with pt and informed her the CT was normal. Schuyler Jasso - 08/30/2007 3:31 PM CDT Please call the patient Ct of head is normal Jose Colin DO 5:42 PM 08/29/2007 documented in this encounter Plan of Treatment Not on filedocumented as of this encounter Visit Diagnoses Not on filedocumented in this encounter Care Teams Mining And Quarrying Machinery Repairer Relationship Specialty Start Date End Date Jose Colin DO PCP - General 12/24/03 09/17/08 [address] [place] [address] documented as of this encounter
--- OUTSIDE RECORDS SUMMARY | 2022-01-17 22:21 | XMS_ITS | Encounter Summary ---
:1965 Author [facility] Address [address] [place] [address] Care Team Providers Name Role Phone Jose Colin DO Primary Care Provider [phone] Encounter Details Date Type Department Care Team Description 10/29/2007 Anticoagulation [facility] Internal Sandy Light RN [address] [place] [address] [place], [place] [address] (Wo rk) Social History Tobacco Use Types Packs/Day Years Used Date Smoking Tobacco: Never Alcohol Use Standard Drinks/Week Comments Yes 0 (1 standard drink = 0.6 oz pure alcoho l) rarely Sex Assigned at Date Recorded Not on file documented as of this encounter Progress Notes Sandy Light - 10/29/2007 3:53 PM CDT See Anticoagulation Flowsheet for details. Sandy Light RN documented in this encounter Plan of Treatment Not on filedocumented as of this encounter Visit Diagnoses Not on filedocumented in this encounter Care Teams Hatchery Laborer Relationship Specialty Start Date End Date Jose Colin DO PCP - General 12/24/03 09/17/[address] [place] [address] documented as of this encounter
--- OUTSIDE RECORDS SUMMARY | 2022-01-17 22:21 | XMS_ITS | Encounter Summary ---
:1965 [facility] Address [address], [place] [address] Care Team Providers Name Role Phone DungJose gonzalez Primary Care Provider [phone] Encounter Details Date Type Department Care Team Description 11/19/2007 Orders Only [facility] Tamra Ro MD Gastroenterology [address] [place] [address] [place] [address] [phone] Social History Tobacco Use Types Packs/Day Years Used Date Smoking Tobacco: Never Alcohol Use Standard Drinks/Week Comments Yes 0 (1 standard drink = 0.6 oz pure alcoho l) rarely Sex Assigned at Date Recorded Not on file documented as of this encounter Progress Notes Thaddeus Ro - 12/09/2007 4:58 PM CDT Quick Note: The HIDA scan is normal. If your symptoms continue, come back to clinic to see me. Thaddeus Ro MD documented in this encounter Plan of Treatment Not on filedocumented as of this encounter Procedures Procedure Name Priority Date/Time Associated Comments Diagnosis HEPATOBILIARY WITH Routine 12/03/2007 3:44 PM Res ults for this EJECTION FRACTION CDT procedure are in the results section. US ABDOMEN- COMPLETE Routine 11/23/2007 1:37 PM R esults for this CDT procedure are i n the results section. documented in this encounter Results HEPATOBILIARY WITH EJECTION FRACTION (12/03/2007 3:44 PM CDT) Anatomical Region Laterality Modality Other Specimen (Source) Anatomical Collection Method Collection Time Re ceived Time Location / / Volume Laterality 12/03/2007 3:44 PM CDT Impressions 12/06/2007 12:05 PM CDT IMPRESSION: Normal gallbladder motility study. Narrative 12/06/2007 12:05 PM CDT ABDOMINAL PAIN, OTHER SPECIFIED SITE... RUQ PAIN ?# [id number] HEPATOBILIARY IMAGING WITH EJECTION FRAC TION, 12/03/07. INDICATION: ??Abdominal pain and right u pper quadrant pain. TECHNIQUE: ??8.8 mCi of [id number] i ntravenous and 1.8 mcg CCK infused. FINDINGS: ??Prompt uptake identified in the liver with rapid excretion to the biliary tree, gallbladd er, common bile duct, and bowel. ??The ejection fraction of the ga llbladder is 78%. ??This is well within normal limits. Thaddeus Ro MD RAD NUCMED/RH US ABDOMEN- COMPLETE (11/23/2007 1:37 PM CDT) Anatomical Region Laterality Modality Other Specimen (Source) Anatomical Collection Method Collection Time Re ceived Time Location / / Volume Laterality 11/23/2007 1:37 PM CDT Impressions 11/27/2007 10:47 PM CDT IMPRESSION: 1. ??Normal gallbladder and bile ducts. ??No discrete liver lesions. No ultrasound finding to explain this pa tiffany's right upper quadrant pain. Narrative 11/27/2007 10:47 PM CDT #[id number], RUQ PAIN ULTRASOUND ABDOMEN 11/23/07: COMPARISON: ??None. INDICATIONS: ??Right upper quadrant pain . FINDINGS: ??The gallbladder and bile zachary ts are unremarkable. ??No gallstones or sonographic Leyva's sign. ??The liver contour is normal without discrete liver lesions. ? ?Visualized pancreas, spleen, and kidneys are unremarkable. ?? Pancreatic tail is obscured. Right and left kidneys measure 10.2 ??an d 10.1 cm in length respectively. ??No hydronephrosis. Aorta is not aneurysmal as visualized. ??IVC is patent at the level of the liver. ??Main portal vein is patent with normal antegrade reji w. ??No abdominal ascites. Thaddeus Ro MD RAD US/RH documented in this encounter Visit Diagnoses Not on filedocumented in this encounter Care Teams Broker In Charge Relationship Specialty Start Date End Date Jose Colin, PCP - General 12/24/03 09/17/08 [address] [place] [address] documented as of this encounter
--- OUTSIDE RECORDS SUMMARY | 2022-01-17 22:21 | XMS_ITS | Encounter Summary ---
:1965 Author Organization [facility] Address [address] [place] [address] Care Team Providers Name Role Phone Jose Colin DO Primary Care Provider [phone] Encounter Details Date Type Department Care Team Description 10/16/2007 Orders Only [place] [facility] DVT (Deep Venous [address] [place] [address] St. S. Thrombosis) [place], [place] [id number] Social History Tobacco Use Types Packs/Day Years [...] Associated Diagnosis Comme nts INR/PROTIME Same Day 10/16/2007 8:06 AM DVT (Deep Venous Resul ts for this CDT Thrombosis) procedure are i n the results section . documented in this encounter Results (ABNORMAL) INR/PROTIME (10/16/2007 8:06 AM CDT) P athologist Signature Protime 22.7 (H) 12.0 - [facility] 14.5 sec Coumadin Yes [facility] INR 1.9 [facility] Specimen Anatomical Collection Method Collection Time Receive d Time (Source) Location / / Volume Laterality 10/16/2007 8:06 AM 8 8:07 CDT AM CDT Jose Colin DO LAB_1 Performing Organization Address City/State/ZIP Code Phon e Number [facility] [phone] [facility] [address] [address] documented in this encounter Visit Diagnoses Diagnosis DVT (deep venous thrombosis) ([facility]) Acute venous embolism and thrombosis of unspecified deep vessels of lower extremity documented in this encounter Care Teams Access Coordinator Relationship Specialty Start Date End Date Jose Colin DO PCP - General 12/24/03 09/17/08 [address] [place] [address] documented as of this encounter
--- OUTSIDE RECORDS SUMMARY | 2022-01-17 22:21 | XMS_ITS | Encounter Summary ---
:[address] [facility] Address [address] [place] [address] Care Team Providers Name Role Phone Jose Colin DO Primary Care Provider [phone] Encounter Details Date Type Department Care Team Description 09/23/2007 Orders Only [place] [facility] DVT (Deep Venous [address] Thrombosis) [place], [place] [id number] Social History Tobacco Use Types Packs/Day Years [...] Associated Diagnosis Comme nts INR/PROTIME Same Day 09/23/2007 7:32 AM DVT (Deep Venous Resul ts for this CDT Thrombosis) procedure are i n the results section . documented in this encounter Results (ABNORMAL) INR/PROTIME (09/23/2007 7:32 AM CDT) P athologist Signature Protime 15.7 (H) 12.0 - [facility] 14.5 sec Coumadin Yes [facility] 1.2 [facility] Specimen Anatomical Collection Method Collection Time Receive d Time (Source) Location / / Volume Laterality 09/23/2007 7:32 AM 8 7:35 CDT AM CDT Jose Colin DO LAB_1 Performing Organization Address City/State/ZIP Code Phon e Number [facility] [phone] [facility] [address] [address] documented in this encounter Visit Diagnoses Diagnosis DVT (deep venous thrombosis) ([facility]) Acute venous embolism and thrombosis of unspecified deep vessels of lower extremity documented in this encounter Care Teams Director Of Medical Education Relationship Specialty Start Date End Date Jose Colin DO PCP - General 12/24/03 09/17/08 [address] [place] [address] documented as of this encounter
--- OUTSIDE RECORDS SUMMARY | 2022-01-17 22:22 | XMS_ITS | Encounter Summary ---
:1965 [facility] Address [address] [place] [address] Care Team Providers Name Role Phone Jose Colin DO Primary Care Provider [phone] Encounter Details Date Type Department Care Team Description 06/10/2007 Orders Only [place] [facility] DVT (Deep Venous [address] Thrombosis) [place], [place] [id number] Social History Tobacco Use Types Packs/Day Years [...] Associated Diagnosis Comme nts INR/PROTIME Same Day 06/10/2007 9:04 AM DVT (Deep Venous Resul ts for this PROBATE CLERK Thrombosis) procedure are i n the results section . documented in this encounter Results (ABNORMAL) INR/PROTIME (06/10/2007 9:04 AM PROBATE CLERK) P athologist Signature Protime 28.8 (H) 12.0 - [facility] 14.5 sec Coumadin Yes [facility] INR 2.6 [facility] Specimen Anatomical Collection Method Collection Time Receive d Time (Source) Location / / Volume Laterality 06/10/2007 9:04 AM 7 9:05 PROBATE CLERK AM PROBATE CLERK Jose Colin DO LAB_1 Performing Organization Address City/State/ZIP Code Phon e Number [facility] [phone] [facility] [address] [address] documented in this encounter Visit Diagnoses Diagnosis DVT (deep venous thrombosis) ([facility]) Acute venous embolism and thrombosis of unspecified deep vessels of lower extremity documented in this encounter Care Teams Treater Helper Relationship Specialty Start Date End Date Jose Colin DO PCP - General 12/24/03 09/17/08 [address] [place] [address] documented as of this encounter
--- OUTSIDE RECORDS SUMMARY | 2022-01-17 22:22 | XMS_ITS | Encounter Summary ---
:1965 Author Organization [facility] Address [address], [place] [address] Care Team Providers Name Role Phone Jose Colin DO Primary Care Provider [phone] Encounter Details Date Type Department Care Team Description 05/29/2007 [facility] Internal Med Wilda Burton RN [address] [place] [address] [address] [phone] [place] [address] Social History Tobacco Use Types Packs/Day Years Used Date Smoking Tobacco: Never Alcohol Use Standard Drinks/Week Comments Yes 0 (1 standard drink = 0.6 oz pure alcoho l) rarely Sex Assigned at Date Recorded Not on file documented as of this encounter Progress Notes Wilda Anand - 05/29/2007 4:11 PM CST See Anticoagulation Flowsheet for details. Wilda Burch RN S TENDER SMOKE SIGNAL documented in this encounter Plan of Treatment Not on filedocumented as of this encounter Visit Diagnoses Not on filedocumented in this encounter Care Teams Teachers Assistant Relationship Specialty Start Date End Date Jose Colin, PCP - General 12/24/03 09/17/08 [address] [facility] [address] documented as of this encounter
--- OUTSIDE RECORDS SUMMARY | 2022-01-17 22:22 | XMS_ITS | Encounter Summary ---
:1965 Author [facility] Address [address] [place] [address] Care Team Providers Name Role Phone Jose Colin DO Primary Care Provider [phone] Encounter Details Date Type Department Care Team Description 05/17/2007 Orders Only [place] DVT (Deep Venous [address] Thrombosis) [place], [place] [id number] Social History Tobacco Use Types Packs/Day Years [...] Associated Diagnosis Comme nts INR/PROTIME Same Day 05/17/2007 9:00 AM DVT (Deep Venous Resul ts for this ENGINEERING DESIGN SUPERVISOR Thrombosis) procedure are i n the results section . documented in this encounter Results (ABNORMAL) INR/PROTIME (05/17/2007 9:00 AM ENGINEERING DESIGN SUPERVISOR) P athologist Signature Protime 39.4 (H) 12.0 - [facility] 14.5 sec Coumadin Yes [facility]R 3.9 [facility] Specimen Anatomical Collection Method Collection Time Receive d Time (Source) Location / / Volume Laterality 05/17/2007 9:00 AM 7 9:01 ENGINEERING DESIGN SUPERVISOR AM ENGINEERING DESIGN SUPERVISOR Jose Colin DO LAB_1 Performing Organization Address City/State/ZIP Code Phon e Number [facility] [phone] [facility] [address] [address] documented in this encounter Visit Diagnoses Diagnosis DVT (deep venous thrombosis) ([facility]) Acute venous embolism and thrombosis of unspecified deep vessels of lower extremity documented in this encounter Care Teams Fermentation Scientist Relationship Specialty Start Date End Date Jose Colin DO PCP - General 12/24/03 09/17/08 [address] [place] [address] documented as of this encounter
--- OUTSIDE RECORDS SUMMARY | 2022-01-17 22:22 | XMS_ITS | Encounter Summary ---
:1965 Author Organization [facility] Address [address], [place] [address] Care Team Providers Name Role Phone Dungjosé antonioelbaJose medina Primary Care Provider [phone] Encounter Details Date Type Department Care Team Description 05/23/2007 Orders Only [place] [facility] DVT (Deep Venous [address] Thrombosis) [place], [place] [id number] Social History Tobacco Use Types Packs/Day Years Used Date Smoking Tobacco: Never Alcohol Use Standard Drinks/Week Comments Yes 0 (1 standard drink = 0.6 oz pure alcoho l) rarely Sex Assigned at Date Recorded Not on file documented as of this encounter Plan of Treatment Not on filedocumented as of this encounter Procedures Procedure Name Priority Date/Time Associated Diagnosis Comme nts COMPLETE BLOOD Routine 05/23/2007 8:09 AM DVT (Deep Venous Res ults for this COUNT-W/DIFF SHELL PLATER Thrombosis) procedure are i n the results section. INR/PROTIME Same Day 05/23/2007 8:09 AM DVT (Deep Venous Resul ts for this SHELL PLATER Thrombosis) procedure are i n the results section. documented in this encounter Results HEMOGRAM/PLTS/DIFF (05/23/2007 8:09 AM SHELL PLATER) Analysis Performed At Patho logist Time Signature WBC 7.3 4.0 - 11.0 [facility] k/ul RBC 4.26 4.0 - 5.2 [facility] M/ul Hemoglobin 13.3 12.0 - [facility] 16.0 g/dl HCT 38.7 36.0 - [facility] 46.0 % MCV 90.7 80 - 100 [facility] fl MCH 31.2 26 - 34 pg [facility] MCHC 34.4 32 - 36 % [facility] RDW 12.5 11.5 - [facility] 14.5 % Platelets 307 150 - 450 [facility] k/ul PMN/Band 58 43 - 72 % [facility] Lymph 34 17 - 43 % [facility] [place] 5 4 - 12 % [facility] Eos 3 0 - 8 % [facility] Baso 1 0 - 1 % [facility] Neutrophil 4.2 1.8 - 7.7 [facility] Absolute k/ul Lymph Absolute 2.4 1.0 - 4.8 [facility] k/ul [place] Absolute 0.4 0.1 - 0.7 [facility] k/ul Eos Absolute 0.2 0.0 - 0.5 [facility] k/ul Baso Absolute 0.0 0.0 - 0.2 [facility] k/ul Specimen Anatomical Collection Method Collection Time Receive d Time (Source) Location / / Volume Laterality 05/23/2007 8:09 AM 7 8:11 SHELL PLATER AM SHELL PLATER Jose Colin DO LAB_1 Performing Organization Address City/[facility] Code Phon e Number [facility] [phone] [address] (ABNORMAL) INR/PROTIME (05/23/2007 8:09 AM SHELL PLATER) P athologist Signature Protime 24.1 (H) 12.0 - [facility] 14.5 sec Coumadin Yes [facility] INR 2.1 [facility] Specimen Anatomical Collection Method Collection Time Receive d Time (Source) Location / / Volume Laterality 05/23/2007 8:09 AM 7 8:11 SHELL PLATER AM SHELL PLATER Jose Colin DO LAB_1 Performing Organization Address City/[facility] Phon e Number [facility] [phone] [address] documented in this encounter Visit Diagnoses Diagnosis DVT (deep venous thrombosis) ([facility]) Acute venous embolism and thrombosis of unspecified deep vessels of lower extremity documented in this encounter Care Teams Wood Buffer Relationship Specialty Start Date End Date Jose Colin DO PCP - General 12/24/03 09/17/08 [address] [place] [address] documented as of this encounter
--- OUTSIDE RECORDS SUMMARY | 2022-01-17 22:22 | XMS_ITS | Encounter Summary ---
:1965 Author Organization [facility] Address [address], [place] [address] Care Team Providers Name Role Phone Jose Colin DO Primary Care Provider [phone] Encounter Details Date Type Department Care Team Description 08/12/2007 [facility] Internal Med Wilda Burton RN [address] [place] [address] [address] [phone] [place], [place] [address] Social History Tobacco Use Types Packs/Day Years Used Date Smoking Tobacco: Never Alcohol Use Standard Drinks/Week Comments Yes 0 (1 standard drink = 0.6 oz pure alcoho l) rarely Sex Assigned at Date Recorded Not on file documented as of this encounter Progress Notes Wilda Anand - 08/12/2007 2:19 PM CST See Anticoagulation Flowsheet for details. Wilda Burch RN L MILL OPERATOR documented in this encounter Plan of Treatment Not on filedocumented as of this encounter Visit Diagnoses Not on filedocumented in this encounter Care Teams Overlock Collar Setter Relationship Specialty Start Date End Date Jose Colin, PCP - General 12/24/03 09/17/08 [address] [facility] [address] documented as of this encounter
--- OUTSIDE RECORDS SUMMARY | 2022-01-17 22:22 | XMS_ITS | Encounter Summary ---
:1965 Author Organization [facility] Address [address] [place] [address] Care Team Providers Name Role Phone Jose Colin DO Primary Care Provider [phone] Reason for Visit Reason Onset Date Comments LETTER NEEDED 05/28/2007 Encounter Details Date Type Department Care Team Description 05/28/2007 Telephone [facility] Jose Witt, LETTER NEEDED [address] [place] [address] [address] [facility] [phone] [place] [address] (Wo rk) Social History Tobacco Use Types Packs/Day Years Used Date Smoking Tobacco: Never Alcohol Use Standard Drinks/Week Comments Yes 0 (1 standard drink = 0.6 oz pure alcoho l) rarely Sex Assigned at Date Recorded Not on file documented as of this encounter Nursing Notes Hanna Shin - 05/28/2007 2:46 PM CST Pt will picker and packer letter RVISOR GRADING Jose Colin - 05/28/2007 2:02 PM CST Letter made Please contact pt to let he know it's done Jose Allan. DO Dixie 2:02 PM 05/28/2007 RVISOR GRADING Emmie Lake - 05/28/2007 10:10 AM CST Pt needs letter for employer re her having INR tests. Pt needs detailed letter explaining she will have to have lab draws and may be late for work. The letter should explain how it is determined when she needs labs, since it really is not on a regular schedule. RVISOR GRADING documented in this encounter Plan of Treatment Not on filedocumented as of this encounter Visit Diagnoses Not on filedocumented in this encounter Care Teams Mule Operator Relationship Specialty Start Date End Date Jose Colin, PCP - General 12/24/03 09/17/08 [address] [place] [address] documented as of this encounter
--- OUTSIDE RECORDS SUMMARY | 2022-01-17 22:22 | XMS_ITS | Encounter Summary ---
:1965 Author Organization [facility] Address [address], [place] [address] Care Team Providers Name Role Phone Jose Colin DO Primary Care Provider [phone] Encounter Details Date Type Department Care Team Description 05/20/2007 [facility] Internal Med Wilda Burton RN [address] [place] [address] [address] [phone] [place], [place] [address] Social History Tobacco Use Types Packs/Day Years Used Date Smoking Tobacco: Never Alcohol Use Standard Drinks/Week Comments Yes 0 (1 standard drink = 0.6 oz pure alcoho l) rarely Sex Assigned at Date Recorded Not on file documented as of this encounter Progress Notes Wilda Anand - 05/20/2007 3:09 PM CST See Anticoagulation Flowsheet for details. Wilda Burch RN OELECTRIC PLANT STRUCTURAL ENGINEER documented in this encounter Plan of Treatment Not on filedocumented as of this encounter Visit Diagnoses Not on filedocumented in this encounter Care Teams Beater Out Leveling Machine Relationship Specialty Start Date End Date Jose Colin, PCP - General 12/24/03 09/17/08 [address] [facility] [address] documented as of this encounter
--- OUTSIDE RECORDS SUMMARY | 2022-01-17 22:22 | XMS_ITS | Encounter Summary ---
:1965 Author Organization [facility] Address [address], [place] [address] Care Team Providers Name Role Phone Jose Colin DO Primary Care Provider [phone] Encounter Details Date Type Department Care Team Description 05/23/2007 [facility] Internal Med Wilda Burton RN [address] [place] [address] [address] [phone] [place], [place] [address] Social History Tobacco Use Types Packs/Day Years Used Date Smoking Tobacco: Never Alcohol Use Standard Drinks/Week Comments Yes 0 (1 standard drink = 0.6 oz pure alcoho l) rarely Sex Assigned at Date Recorded Not on file documented as of this encounter Progress Notes Wilda Anand - 05/23/2007 3:08 PM CST See Anticoagulation Flowsheet for details. Wilda Burch RN ILE TECHNOLOGIST documented in this encounter Plan of Treatment Not on filedocumented as of this encounter Visit Diagnoses Not on filedocumented in this encounter Care Teams Farm Helper Relationship Specialty Start Date End Date Jose Colin, PCP - General 12/24/03 09/17/08 [address] [facility] [address] documented as of this encounter
--- OUTSIDE RECORDS SUMMARY | 2022-01-17 22:22 | XMS_ITS | Encounter Summary ---
:1965 Author Organization [facility] Address [address], [place] [address] Care Team Providers Name Role Phone Jose Colin DO Primary Care Provider [phone] Encounter Details Date Type Department Care Team Description 07/01/2007 [facility] Internal Med Wilda Burton RN [address] [place] [address] [address] [phone] [place], [place] [address] Social History Tobacco Use Types Packs/Day Years Used Date Smoking Tobacco: Never Alcohol Use Standard Drinks/Week Comments Yes 0 (1 standard drink = 0.6 oz pure alcoho l) rarely Sex Assigned at Date Recorded Not on file documented as of this encounter Progress Notes Wilda Anand - 07/01/2007 4:11 PM CST See Anticoagulation Flowsheet for details. Wilda Burch RN INE DESIGN ENGINEER documented in this encounter Plan of Treatment Not on filedocumented as of this encounter Visit Diagnoses Not on filedocumented in this encounter Care Teams Social Scientist Relationship Specialty Start Date End Date Jose Colin, PCP - General 12/24/03 09/17/08 [address] [facility] [address] documented as of this encounter
--- OUTSIDE RECORDS SUMMARY | 2022-01-17 22:22 | XMS_ITS | Encounter Summary ---
:1965 Author Organization [facility] Address [address], [place] [address] Care Team Providers Name Role Phone Jose Colin DO Primary Care Provider Encounter Details Date Type Department Care Team Description 06/12/2007 [facility] Internal Med Thea Carmona, RERE [address] [place] [address] [address] [phone] [place], [place] [address] Social History Tobacco Use Types [...] on filedocumented in this encounter Care Teams Provider Relations Advocate Relationship Specialty Start Date End Date Jose Colin DO PCP - General 12/24/03 09/17/[address] [place] [place] [address] documented as of this encounter
--- OUTSIDE RECORDS SUMMARY | 2022-01-17 22:22 | XMS_ITS | Encounter Summary ---
:1965 Author Organization [facility] Address [address] [address] Care Team Providers Name Role Phone Jose Colin DO Primary Care Provider [phone] Encounter Details Date Type Department Care Team Description 06/10/2007 [facility] Internal Med Wilda Burton RN [address] [place] [address] [address] [phone] [place], [place] [address] Social History Tobacco Use Types Packs/Day Years Used Date Smoking Tobacco: Never Alcohol Use Standard Drinks/Week Comments Yes 0 (1 standard drink = 0.6 oz pure alcoho l) rarely Sex Assigned at Date Recorded Not on file documented as of this encounter Progress Notes Wilda Anand - 06/10/2007 5:11 PM CST See Anticoagulation Flowsheet for details. Wilda Burch RN ATCH OFFICER documented in this encounter Plan of Treatment Not on filedocumented as of this encounter Visit Diagnoses Not on filedocumented in this encounter Care Teams Active Directory Architect Relationship Specialty Start Date End Date Jose Colin, PCP - General 12/24/03 09/17/08 [address] [facility] [address] documented as of this encounter
--- OUTSIDE RECORDS SUMMARY | 2022-01-17 22:22 | XMS_ITS | Encounter Summary ---
:1965 [facility] Address [address] [place] [address] Care Team Providers Name Role Phone Jose Colin DO Primary Care Provider [phone] Encounter Details Date Type Department Care Team Description 05/30/2007 Orders Only [facility] DVT (Deep Venous [address] Thrombosis) [place], [place] [id number] Social History Tobacco Use Types Packs/Day Years [...] Associated Diagnosis Comme nts INR/PROTIME Same Day 05/30/2007 10:59 AM DVT (Deep Venous Resu lts for this APPEALS WRITER Thrombosis) procedure are i n the results section . documented in this encounter Results (ABNORMAL) INR/PROTIME (05/30/2007 10:59 AM APPEALS WRITER) P athologist Signature Protime 34.8 (H) 12.0 - [facility] 14.5 sec Coumadin Yes [facility] INR 3.4 [facility] Specimen Anatomical Collection Method Collection Time Receive d Time (Source) Location / / Volume Laterality 05/30/2007 10:59 05/30/2007 AM APPEALS WRITER 11:00 AM APPEALS WRITER Jose Colin DO LAB_1 Performing Organization Address City/State/ZIP Code Phon e Number [facility] [phone] [facility] [address] [address] documented in this encounter Visit Diagnoses Diagnosis DVT (deep venous thrombosis) ([facility]) Acute venous embolism and thrombosis of unspecified deep vessels of lower extremity documented in this encounter Care Teams Manager Search Engine Relationship Specialty Start Date End Date Jose Colin DO PCP - General 12/24/03 09/17/08 [address] [place] [address] documented as of this encounter
--- OUTSIDE RECORDS SUMMARY | 2022-01-17 22:22 | XMS_ITS | Encounter Summary ---
:1965 Author Organization [facility] Address [address], [place] [address] Care Team Providers Name Role Phone Jose Colin DO Primary Care Provider Encounter Details Date Type Department Care Team Description 06/17/2007 [facility] Internal Med Wilda Burton RN [address] [place] [address] [address] [phone] [place], [place] [address] Social History Tobacco Use Types Packs/Day Years Used Date Smoking Tobacco: Never Alcohol Use Standard Drinks/Week Comments Yes 0 (1 standard drink = 0.6 oz pure alcoho l) rarely Sex Assigned at Date Recorded Not on file documented as of this encounter Progress Notes Wilda Anand - 06/17/2007 3:51 PM CST See Anticoagulation Flowsheet for details. Wilda Burch RN THCARE OR MEDICAL documented in this encounter Plan of Treatment Not on filedocumented as of this encounter Visit Diagnoses Not on filedocumented in this encounter Care Teams Bench Technician Relationship Specialty Start Date End Date Jose Colin, PCP - General 12/24/03 09/17/08 [address] [facility] [address] documented as of this encounter
--- OUTSIDE RECORDS SUMMARY | 2022-01-17 22:22 | XMS_ITS | Encounter Summary ---
:1965 Author [facility] Address [address] [place] [address] Care Team Providers Name Role Phone Jose Colin DO Primary Care Provider [phone] Encounter Details Date Type Department Care Team Description 06/03/2007 Orders Only [facility] DVT (Deep Venous [address] Thrombosis) [place], [place] [id number] Social History Tobacco Use Types Packs/Day Years [...] Associated Diagnosis Comme nts INR/PROTIME Same Day 06/03/2007 8:53 AM DVT (Deep Venous Resul ts for this BUS ESCORT Thrombosis) procedure are i n the results section . documented in this encounter Results (ABNORMAL) INR/PROTIME (06/03/2007 8:53 AM BUS ESCORT) P athologist Signature Protime 24.7 (H) 12.0 - [facility] 14.5 sec [facility]madin Yes [facility]2 [facility] Specimen Anatomical Collection Method Collection Time Receive d Time (Source) Location / / Volume Laterality 06/03/2007 8:53 AM 7 8:54 BUS ESCORT AM BUS ESCORT Jose Colin DO LAB_1 Performing Organization Address City/State/ZIP Code Phon e Number [facility] [phone] [facility] [address] [address] documented in this encounter Visit Diagnoses Diagnosis DVT (deep venous thrombosis) ([facility]) Acute venous embolism and thrombosis of unspecified deep vessels of lower extremity documented in this encounter Care Teams Kettle Cook Relationship Specialty Start Date End Date Jose Colin DO PCP - General 12/24/03 09/17/08 [address] [place] [address] documented as of this encounter
--- OUTSIDE RECORDS SUMMARY | 2022-01-17 22:22 | XMS_ITS | Encounter Summary ---
:1965 Author [facility] Address [address] [place] [address] Care Team Providers Name Role Phone Jose Colin DO Primary Care Provider [phone] Encounter Details Date Type Department Care Team Description 05/20/2007 Orders Only [facility] DVT (Deep Venous [address] Thrombosis) [place], [place] [id number] Social History Tobacco Use Types Packs/Day Years [...] Associated Diagnosis Comme nts INR/PROTIME Same Day 05/20/2007 8:00 AM DVT (Deep Venous Resul ts for this MOUNTAIN GUIDE Thrombosis) procedure are i n the results section . documented in this encounter Results (ABNORMAL) INR/PROTIME (05/20/2007 8:00 AM MOUNTAIN GUIDE) P athologist Signature Protime 22.9 (H) 12.0 - [facility] 14.5 sec Coumadin Yes [facility]0 [facility] Specimen Anatomical Collection Method Collection Time Receive d Time (Source) Location / / Volume Laterality 05/20/2007 8:00 AM 7 8:01 MOUNTAIN GUIDE AM MOUNTAIN GUIDE Jose Colin DO LAB_1 Performing Organization Address City/State/ZIP Code Phon e Number [facility] [phone] [facility] [address] [address] documented in this encounter Visit Diagnoses Diagnosis DVT (deep venous thrombosis) ([facility]) Acute venous embolism and thrombosis of unspecified deep vessels of lower extremity documented in this encounter Care Teams Enterprise Project Manager Relationship Specialty Start Date End Date Jose Colin DO PCP - General 12/24/03 09/17/08 [address] [place] [address] documented as of this encounter
--- OUTSIDE RECORDS SUMMARY | 2022-01-17 22:22 | XMS_ITS | Encounter Summary ---
:1965 [facility] Address [address] [place] [address] Care Team Providers Name Role Phone Jose Colin DO Primary Care Provider [phone] Encounter Details Date Type Department Care Team Description 07/15/2007 Orders Only [facility] DVT (Deep Venous [address] Thrombosis) [place], [place] [id number] Social History Tobacco Use Types Packs/Day Years [...] Associated Diagnosis Comme nts INR/PROTIME Same Day 07/15/2007 7:31 AM DVT (Deep Venous Resul ts for this SUPERVISOR SUNGLASSES Thrombosis) procedure are i n the results section . documented in this encounter Results (ABNORMAL) INR/PROTIME (07/15/2007 7:31 AM SUPERVISOR SUNGLASSES) P athologist Signature Protime 26.3 (H) 12.0 - [facility] 14.5 sec Coumadin Yes [facility] INR 2.3 [facility] Specimen Anatomical Collection Method Collection Time Receive d Time (Source) Location / / Volume Laterality 07/15/2007 7:31 AM 8 7:32 SUPERVISOR SUNGLASSES AM SUPERVISOR SUNGLASSES Jose Colin DO LAB_1 Performing Organization Address City/State/ZIP Code Phon e Number [facility] [phone] [facility] [address] [address] documented in this encounter Visit Diagnoses Diagnosis DVT (deep venous thrombosis) ([facility]) Acute venous embolism and thrombosis of unspecified deep vessels of lower extremity documented in this encounter Care Teams Location Director Relationship Specialty Start Date End Date Jose Colin DO PCP - General 12/24/03 09/17/08 [address] [place] [address] documented as of this encounter
--- OUTSIDE RECORDS SUMMARY | 2022-01-17 22:22 | XMS_ITS | Encounter Summary ---
:1965 Author Organization [facility] Address [address] [place] [address] Care Team Providers Name Role Phone Jose Colin DO Primary Care Provider [phone] Reason for Visit Reason Onset Date Comments Careplan: Anticoagulation 05/30/2007 Encounter Details Date Type Department Care Team Description 05/30/2007 Telephone [facility] Internal Stephanie Colinplan: A [facility] Jose Allan DO 205 [facility] [address] [place] [address] [place], [place] [phone] [address] Social History Tobacco Use Types Packs/Day Years Used Date Smoking Tobacco: Never Alcohol Use Standard Drinks/Week Comments Yes 0 (1 standard drink = 0.6 oz pure alcoho l) rarely Sex Assigned at Date Recorded Not on file documented as of this encounter Nursing Notes Wilda Anand - 05/30/2007 4:51 PM CST See Anticoagulation Flowsheet for details. Wilda Burch RN BILITATION COORDINATOR Emmie Lake - 05/30/2007 4:42 PM CST Pt calling for INR result. BILITATION COORDINATOR documented in this encounter Plan of Treatment Not on filedocumented as of this encounter Visit Diagnoses Not on filedocumented in this encounter Care Teams Entry Level Mechanical Engineer Relationship Specialty Start Date End Date Jose Colin DO PCP - General 12/24/03 09/17/08 [address] [place] [address] documented as of this encounter
--- OUTSIDE RECORDS SUMMARY | 2022-01-17 22:22 | XMS_ITS | Encounter Summary ---
:1965 Author Organization [facility] Address [address], [place] [address] Care Team Providers Name Role Phone Jose Colin DO Primary Care Provider [phone] Encounter Details Date Type Department Care Team Description 05/17/2007 [facility] Internal Med Wilda Burton RN [address] [place] [address] [address] [phone] [place], [place] [address] Social History Tobacco Use Types Packs/Day Years Used Date Smoking Tobacco: Never Alcohol Use Standard Drinks/Week Comments Yes 0 (1 standard drink = 0.6 oz pure alcoho l) rarely Sex Assigned at Date Recorded Not on file documented as of this encounter Progress Notes Wilda Anand - 05/17/2007 3:06 PM CST See Anticoagulation Flowsheet for details. Wilda Burch RN EWATER PROJECT MANAGER documented in this encounter Plan of Treatment Not on filedocumented as of this encounter Visit Diagnoses Not on filedocumented in this encounter Care Teams Director Foundation Relationship Specialty Start Date End Date Jose Colin, PCP - General 12/24/03 09/17/08 [address] [facility] [address] documented as of this encounter
--- OUTSIDE RECORDS SUMMARY | 2022-01-17 22:22 | XMS_ITS | Encounter Summary ---
:1965 Author Organization [facility] Address [address] [place] [address] Care Team Providers Name Role Phone Jose Colin DO Primary Care Provider [phone] Encounter Details Date Type Department Care Team Description 08/12/2007 Orders Only [facility] DVT (Deep Venous [address] Thrombosis) [place], [place] [id number] Social History Tobacco Use Types Packs/Day Years [...] Associated Diagnosis Comme nts INR/PROTIME Same Day 08/12/2007 7:33 AM DVT (Deep Venous Resul ts for this GLUING MACHINE OPERATOR AUTOMATIC Thrombosis) procedure are i n the results section . documented in this encounter Results (ABNORMAL) INR/PROTIME (08/12/2007 7:33 AM GLUING MACHINE OPERATOR AUTOMATIC) P athologist Signature Protime 33.3 (H) 12.0 - [facility] 14.5 sec Coumadin Yes [facility] INR 3.2 [facility] Specimen Anatomical Collection Method Collection Time Receive d Time (Source) Location / / Volume Laterality 08/12/2007 7:33 AM 8 7:35 GLUING MACHINE OPERATOR AUTOMATIC AM GLUING MACHINE OPERATOR AUTOMATIC Jose Colin DO LAB_1 Performing Organization Address City/State/ZIP Code Phon e Number [facility] [phone] [facility] [address] [address] documented in this encounter Visit Diagnoses Diagnosis DVT (deep venous thrombosis) ([facility]) Acute venous embolism and thrombosis of unspecified deep vessels of lower extremity documented in this encounter Care Teams Washer Blanket Relationship Specialty Start Date End Date Jose Colin DO PCP - General 12/24/03 09/17/08 [address] [place] [address] documented as of this encounter
--- OUTSIDE RECORDS SUMMARY | 2022-01-17 22:22 | XMS_ITS | Encounter Summary ---
:1965 [address] [facility] Address [address] [place] [address] Care Team Providers Name Role Phone Jose Colin DO Primary Care Provider Encounter Details Date Type Department Care Team Description 06/17/2007 Orders Only [facility] DVT (Deep Venous [address] [place] [address] Thrombosis) [place], [place] [id number] Social History Tobacco Use Types Packs/Day Years [...] Associated Diagnosis Comme nts INR/PROTIME Same Day 06/17/2007 8:01 AM DVT (Deep Venous Resul ts for this SALES REPRESENTATIVE PRINTING SUPPLIES Thrombosis) procedure are i n the results section . documented in this encounter Results (ABNORMAL) INR/PROTIME (06/17/2007 8:01 AM SALES REPRESENTATIVE PRINTING SUPPLIES) P athologist Signature Protime 30.0 (H) 12.0 - [facility] 14.5 sec Coumadin Yes [facility]8 [facility] Specimen Anatomical Collection Method Collection Time Receive d Time (Source) Location / / Volume Laterality 06/17/2007 8:01 AM 8 8:02 SALES REPRESENTATIVE PRINTING SUPPLIES AM SALES REPRESENTATIVE PRINTING SUPPLIES Jose Colin DO LAB_1 Performing Organization Address City/State/ZIP Code Phon e Number [facility] [phone] [facility] [address] [address] documented in this encounter Visit Diagnoses Diagnosis DVT (deep venous thrombosis) ([facility]) Acute venous embolism and thrombosis of unspecified deep vessels of lower extremity documented in this encounter Care Teams Comber Operator Relationship Specialty Start Date End Date Jose Colin DO PCP - General 12/24/03 09/17/08 [address] [place] [address] documented as of this encounter
--- OUTSIDE RECORDS SUMMARY | 2022-01-17 22:22 | XMS_ITS | Encounter Summary ---
:1965 Author Organization [facility] Address [address], [place] [address] Care Team Providers Name Role Phone Jose Colin DO Primary Care Provider [phone] Encounter Details Date Type Department Care Team Description 06/03/2007 [facility] Internal Med Wilda Burton RN [address] [place] [address] [address] [phone] [place], [place] [address] Social History Tobacco Use Types Packs/Day Years Used Date Smoking Tobacco: Never Alcohol Use Standard Drinks/Week Comments Yes 0 (1 standard drink = 0.6 oz pure alcoho l) rarely Sex Assigned at Date Recorded Not on file documented as of this encounter Progress Notes Wilda Anand - 06/03/2007 2:23 PM CST See Anticoagulation Flowsheet for details. Wilda Burch RN AR PATHOLOGIST documented in this encounter Plan of Treatment Not on filedocumented as of this encounter Visit Diagnoses Not on filedocumented in this encounter Care Teams Public Policy Professor Relationship Specialty Start Date End Date Jose Colin, PCP - General 12/24/03 09/17/08 [address] [facility] [address] documented as of this encounter
--- OUTSIDE RECORDS SUMMARY | 2022-01-17 22:22 | XMS_ITS | Encounter Summary ---
:1965 Author Organization [facility] Address [address], [place] [address] Care Team Providers Name Role Phone Jose Colin DO Primary Care Provider [phone] Encounter Details Date Type Department Care Team Description 07/15/2007 [facility] Internal Med Wilda Burton RN [address] [place] [address] [address] [phone] [place], [place] [address] Social History Tobacco Use Types Packs/Day Years Used Date Smoking Tobacco: Never Alcohol Use Standard Drinks/Week Comments Yes 0 (1 standard drink = 0.6 oz pure alcoho l) rarely Sex Assigned at Date Recorded Not on file documented as of this encounter Progress Notes Wilda Anand - 07/15/2007 2:38 PM CST See Anticoagulation Flowsheet for details. Wilda Burch RN ARINE CABLE EQUIPMENT TECHNICIAN documented in this encounter Plan of Treatment Not on filedocumented as of this encounter Visit Diagnoses Not on filedocumented in this encounter Care Teams Campaign Developer Relationship Specialty Start Date End Date Jose Colin, PCP - General 12/24/03 09/17/08 [address] [facility] [address] documented as of this encounter
--- OUTSIDE RECORDS SUMMARY | 2022-01-17 22:22 | XMS_ITS | Encounter Summary ---
:1965 [facility] Address [address] [place] [address] Care Team Providers Name Role Phone Jose Colin DO Primary Care Provider [phone] Encounter Details Date Type Department Care Team Description 05/29/2007 Orders Only [facility] DVT (Deep Venous [address] Thrombosis) [place], [place] [id number] Social History Tobacco Use Types Packs/Day Years [...] Associated Diagnosis Comme nts INR/PROTIME Same Day 05/29/2007 8:08 AM DVT (Deep Venous Resul ts for this ROLL CLEANER Thrombosis) procedure are i n the results section . documented in this encounter Results (ABNORMAL) INR/PROTIME (05/29/2007 8:08 AM ROLL CLEANER) P athologist Signature Protime 41.3 (H) 12.0 - [facility] 14.5 sec Coumadin Yes [facility] INR 4.2 [facility] Specimen Anatomical Collection Method Collection Time Receive d Time (Source) Location / / Volume Laterality 05/29/2007 8:08 AM 7 8:09 ROLL CLEANER AM ROLL CLEANER Jose Colin DO LAB_1 Performing Organization Address City/State/ZIP Code Phon e Number [facility] [phone] [facility] [address] [address] documented in this encounter Visit Diagnoses Diagnosis DVT (deep venous thrombosis) ([facility]) Acute venous embolism and thrombosis of unspecified deep vessels of lower extremity documented in this encounter Care Teams Fuse Assembler Relationship Specialty Start Date End Date Jose Colin DO PCP - General 12/24/03 09/17/08 [address] [place] [address] documented as of this encounter
--- OUTSIDE RECORDS SUMMARY | 2022-01-17 22:22 | XMS_ITS | Encounter Summary ---
:1965 Author Organization [facility] Address [address], [place] [address] Care Team Providers Name Role Phone Jose Colin DO Primary Care Provider [phone] Encounter Details Date Type Department Care Team Description 05/30/2007 [facility] Internal Med Wilda Burton RN [address] [place] [address] [address] [phone] [place], [place] [address] Social History Tobacco Use Types Packs/Day Years Used Date Smoking Tobacco: Never Alcohol Use Standard Drinks/Week Comments Yes 0 (1 standard drink = 0.6 oz pure alcoho l) rarely Sex Assigned at Date Recorded Not on file documented as of this encounter Progress Notes Wilda Anand - 05/30/2007 4:51 PM CST See Anticoagulation Flowsheet for details. Wilda Burch RN ICAL APPLICATIONS MANAGER documented in this encounter Plan of Treatment Not on filedocumented as of this encounter Visit Diagnoses Not on filedocumented in this encounter Care Teams Assistant Professor Of Geography Relationship Specialty Start Date End Date Jose Colin, PCP - General 12/24/03 09/17/08 [address] [facility] [address] documented as of this encounter
--- OUTSIDE RECORDS SUMMARY | 2022-01-17 22:22 | XMS_ITS | Encounter Summary ---
:1965 Author [facility] Address [address] [place] [address] Care Team Providers Name Role Phone Jose Colin DO Primary Care Provider [phone] Encounter Details Date Type Department Care Team Description 07/01/2007 Orders Only [facility] DVT (Deep Venous [address] Thrombosis) [place], [place] [id number] Social History Tobacco Use Types Packs/Day Years [...] Associated Diagnosis Comme nts INR/PROTIME Same Day 07/01/2007 7:45 AM DVT (Deep Venous Resul ts for this PLANER STONE Thrombosis) procedure are i n the results section . documented in this encounter Results (ABNORMAL) INR/PROTIME (07/01/2007 7:45 AM PLANER STONE) P athologist Signature Protime 31.3 (H) 12.0 - [facility] 14.5 sec Coumadin Yes [facility] INR 2.9 [facility] Specimen Anatomical Collection Method Collection Time Receive d Time (Source) Location / / Volume Laterality 07/01/2007 7:45 AM 8 7:46 PLANER STONE AM PLANER STONE Jose Colin DO LAB_1 Performing Organization Address City/State/ZIP Code Phon e Number [facility] [phone] [facility] [address] [address] documented in this encounter Visit Diagnoses Diagnosis DVT (deep venous thrombosis) ([facility]) Acute venous embolism and thrombosis of unspecified deep vessels of lower extremity documented in this encounter Care Teams Marine Equipment Test Engineer Relationship Specialty Start Date End Date Jose Colin DO PCP - General 12/24/03 09/17/08 [address] [place] [address] documented as of this encounter
--- OUTSIDE RECORDS SUMMARY | 2022-01-17 22:23 | XMS_ITS | Encounter Summary ---
:1965 Author Organization [facility] Address [address], [place] [address] Care Team Providers Name Role Phone Jose Colin DO Primary Care Provider [phone] Encounter Details Date Type Department Care Team Description 05/07/2007 [facility] Internal Med Wilda Burton RN [address] [place] [address] [address] [phone] [place], [place] [address] Social History Tobacco Use Types Packs/Day Years Used Date Smoking Tobacco: Never Alcohol Use Standard Drinks/Week Comments Yes 0 (1 standard drink = 0.6 oz pure alcoho l) rarely Sex Assigned at Date Recorded Not on file documented as of this encounter Progress Notes Wilda Anand - 05/07/2007 2:28 PM CST See Anticoagulation Flowsheet for details. Wilda Burch RN FORM WORKER documented in this encounter Plan of Treatment Not on filedocumented as of this encounter Visit Diagnoses Not on filedocumented in this encounter Care Teams Wringer Machine Operator Relationship Specialty Start Date End Date Jose Colin, PCP - General 12/24/03 09/17/08 [address] [facility] [address] documented as of this encounter
--- OUTSIDE RECORDS SUMMARY | 2022-01-17 22:23 | XMS_ITS | Encounter Summary ---
:1965 [facility] Address [address] [address] Care Team Providers Name Role Phone Jose Colin DO Primary Care Provider [phone] Encounter Details Date Type Department Care Team Description 05/03/2007 Anticoagulation [facility] Internal Wilda Burch, DVT ( Deep Venous Thrombosis) (Primary Dx); Medicine RN GERD (Gastroesophageal Reflux Disease) [address] [place] [address] [facility] [phone] [address] [place], [place] [id number] Social History Tobacco Use Types Packs/Day Years Used Date Smoking Tobacco: Never Alcohol Use Standard Drinks/Week Comments Yes 0 (1 standard drink = 0.6 oz pure alcoho l) rarely Sex Assigned at Date Recorded Not on file documented as of this encounter Progress Notes Jose Colin - 06/20/2007 9:01 AM CST Agree with carenikki. Jose Colin DO ING AND EMBOSSING UNIT OPERATOR Wilda Anand - 05/03/2007 2:40 PM CST See Anticoagulation Flowsheet for details. Wilda Burch RN ING AND EMBOSSING UNIT OPERATOR documented in this encounter Plan of Treatment Not on filedocumented as of this encounter Visit Diagnoses Diagnosis DVT (deep venous thrombosis) ([facility]) - [facility] Acute venous embolism and thrombosis of unspecified deep vessels of lower extremity GERD (gastroesophageal reflux disease) Esophageal reflux documented in this encounter Care Teams Supervisor Meter Shop Relationship Specialty Start Date End Date Jose Colin DO PCP - General 12/24/03 09/17/08 [address] [place] [address] documented as of this encounter
--- OUTSIDE RECORDS SUMMARY | 2022-01-17 22:23 | XMS_ITS | Encounter Summary ---
:1965 [facility] Address [address] [place] [address] Care Team Providers Name Role Phone Jose Colin DO Primary Care Provider [phone] Reason for Visit Reason Comments ERRONEOUS ENTRY Encounter Details Date Type Department Care Team Description 05/03/2007 [facility] Internal Med Wilda Burton RN ERRONEOUS ENTRY [address] [place] [address] [address] [phone] [place], [place] [address] Social History Tobacco Use Types [...] filedocumented in this encounter Care Teams 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
--- OUTSIDE RECORDS SUMMARY | 2022-01-17 22:23 | XMS_ITS | Encounter Summary ---
:1965 Author Organization [facility] Address [address] [place] [address] Care Team Providers Name Role Phone NickiJose murphy Edilia BOOGIE Primary Care Provider [phone] Encounter Details Date Type Department Care Team Description 04/15/2007 Surgery RH Operating Room Zachary Kirkland MD [facility] [address] [facility]. [address] [place] [address] [place] [address] [phone] (Wo rk) Social History Tobacco Use Types Packs/Day Years Used Date Smoking Tobacco: Never Alcohol Use Standard Drinks/Week Comments Yes 0 (1 standard drink = 0.6 oz pure alcoho l) rarely Sex Assigned at Date Recorded Not on file documented as of this encounter Last Filed Vital Signs Vital Sign Reading Time Taken Comments Blood Pressure 123/70 04/15/2007 6:07 AM MEDICAL SALES ASSOCIATE Pulse 65 04/15/2007 6:07 AM MEDICAL SALES ASSOCIATE Temperature 37.2 ??C (98.9 ??F) 04/15/2007 6:07 AM MEDICAL SALES ASSOCIATE Respiratory Rate 16 04/15/2007 6:07 AM MEDICAL SALES ASSOCIATE Oxygen Saturation 99% 04/15/2007 6:07 AM MEDICAL SALES ASSOCIATE Inhaled Oxygen Concentration - - Weight 89.4 kg (197 lb) 04/15/2007 6:07 AM MEDICAL SALES ASSOCIATE Height 160 cm (5' 3) 04/15/2007 6:07 AM MEDICAL SALES ASSOCIATE Body Mass Index 34.9 04/15/2007 6:07 AM MEDICAL SALES ASSOCIATE documented in this encounter Discharge Summaries Zachary Kirkland - 05/15/2007 9:55 AM MEDICAL SALES ASSOCIATE ADMIT DATE: 04/15/2007 DISCHARGE DATE: 04/19/2007 FINAL DISCHARGE DIAGNOSIS: Left sacroiliac pain. HOSPITAL COURSE: The patient was taken to the operating room for a left sacroiliac fusion. Her postoperative course was unremarkable and uncomplicated. She was discharged home. Toe touch weight-bearing for 6 weeks. To be followed in the office in 2 weeks for wound check and other questions. She was discharged home on OxyContin and Vicodin for pain and aspirin for anticoagulation prophylaxis. Zachary Kirkland MD [facility] Dictated: 05/15/2007 09:55:58 Transcribed: 05/16/2007 10:31:51 Doc #: [id number] cc:Zachary Kirkland MD, Referring Physician Jose Colin DO, Primary Physician 1 Page 1 Patient Name: MEGAN WONG DISCHARGE SUMMARY CONFIDENTIAL MEDICAL RECORD [address] [address] Page 1 Patient: MEGAN WONG Location: HPN: [id number] Admit Date: 04/15/2007 Date of : 1965 Discharge Date: 04/19/2007 Age: 42Y DISCHARGE SUMMARY CAL SALES ASSOCIATE documented in this encounter Discharge Instructions Discharge InstructionsRobAmanda vasquez Kim - 04/19/2007 6:43 PM MEDICAL SALES ASSOCIATE ` Discharge Instructions for: Megan Wong Thank you for choosing [facility] as your hospital. Please read the following instructions carefully. The staff will go over this information with you and answer your questions. General Information Allergies: Erythromycin Immunization: Most Recent Immunizations Name Date(s) Administered * Td, Preservative Free 06/16/2005 Phone number: [phone] (home) [phone] (work) Discharging physician: RICHARD Discharge date: 04/19/07 Primary Care Provider Primary care provider: Jose Colin DO Discharge Disposition HOME Home Medications MedLine Plus Carefully read the medication handouts you are given. They contain information about the purpose and side effects of your medications. Talk to your doctor before taking other medications. Medications prior to admission that will be resumed at discharge: Medication Sig Dispense Refill * OMEPRAZOLE (PRILOSEC) 20MG ORAL CAPS One by mouth every day 30 0 New medications prescribed at discharge: Medication Sig Dispense Refill * ASPIRIN EC 325MG ORAL TABS Take one tablet by mouth every day. 1 BOTTLE 3 * OXYCONTIN 10MG ORAL TABS 1-2 po q12 hours 60 0 If you were taking a medication before admission and you do not see it on the list of home medications, please contact your primary care doctor. Additional Orders Discharge Procedure Orders Contact Orthopedic Surgeon Order Comments: Contact Orthopedic Surgeon if considering discontinuing or changing the anticoagulation order. Contact information (name/clinic/phone number): [phone] When to Resume Normal Activities: Order Comments: Crutches toe touch 6 weeks Toe touch Order Comments: . Do not resume full weight bearing on the affected limb(s) until your care provider tells you to do so. Diet Order Comments: Per preop Clinic Referral Order Comments: DOCTORS NAME: Kirkland REASON FOR APPOINTMENT: two weeks Condition at Discharge: Stable Prognosis: Good Rehab Potential: Good Labs & Coumadin Information Patient HBG, INR & Coumadin Dose in the past 240 hrs: Hemoglobin (g/dL) INR Coumadin Dose 04/18/07 0625 11.1 G/DL - - 04/17/07 0710 11.2 G/DL - - 04/16/07 2000 12.4 G/DL - - 04/10/07 1601 13.7 G/DL - - This information has been sent to the following clinic:{[facility] FAX DESTINATION:[id number]} Home Care Instructions Patient Teaching Handouts INCISION CARE: Care of the Incision: KEEP CLEAN AND DRY Danger Signs Call your clinic or seek medical help if you have any sudden change in your condition or if you have any of the following: chest pain difficulty breathing pain not relieved with usual methods shortness of breath SIGNS OF WOUND INFECTION: drainage from wound, redness or streak(s) from wound, increasing sorenessaround wound and fever greater than 101.5 degrees Farenheight SIGNS OF URINARY TRACT INFECTION: Pain with urination Urgency or increased frequency of urination Incontinence ( in someone who has been continent) Urinating small amounts frequently Abdominal or pelvic pain Nausea Urine which is darker than normal, cloudy looking, strong smelling, blood tinged Fever and/or chills Community Resources NONE Contact Information [address] [id number] For questions about your discharge instructions call the nursing unit : 9E Emergency & Urgently Needed Care: For emergencies call 911 and/or get medical help right away. If you are a [employer] member and have medical needs after clinic hours you may call the CareLine at [phone] or . Smoking and second-hand smoke exposure: Smoking damages blood vessels, reduces the oxygen in your blood and makes your heart beat too fast.If you smoke you should quit. Everyone should avoid second- hand smoke. If you would like further assistance after your discharge, please contact [phone]- [phone] or visit [email or web address] and [employer] can offer further information and assistance. You will receive a patient satisfaction survey either at the time of discharge or by mail in about two weeks. We want to hear about your stay at [facility]. Please help us improve by telling us about your experience . When leaving your room at discharge, please stop at the nursing unit desk to check out. I understand my discharge instructions: Megan oWng (or Agricultural Scientist) CAL SALES ASSOCIATE documented in this encounter Medications at Time of Discharge Medication Sig Dispensed Refills Start Date End Date OXYCONTIN 10MG ORAL TABS 1-2 po q12 hours 60 0 04/1705/17/2007 ASPIRIN EC 325MG ORAL Take one tablet by 1 BOTTLE 3 200608/23/2007 TABS mouth every day. OMEPRAZOLE (PRILOSEC) One by mouth every 30 0 200605/03/2007 20MG ORAL day CAPSIndications: GERD (gastroesophageal reflux disease) documented as of this encounter Progress Notes Ant Thomas - 04/19/2007 6:27 PM CST [facility] Discharge Note - Nursing Patient Name: Megan Wong Date of : 1965 Admission Date/Time: 04/15/2007 5:32 AM Attending MD: Zachary Kirkland Patient discharged: to Home. Discharge Date: 04/19/2007 Discharge Time: 1840 Patient accompanied by: spouse. Transported by: Wheelchair Valuables were taken home by patient: Yes Discharge instructions given and explained to patient: Yes Patients general condition on discharge: Hemodynamically stable. Pt verbalized good pain control andunderstanding of discharge instructions. Report Completed by: Robert Pelaez RN ---End of Report--- CAL SALES ASSOCIATE Maria E Galindo - 04/19/2007 2:25 PM CST I have evaluated this patient and reviewed all related documentation. Maria E Galindo RN 04/19/2007 2:35 PM CAL SALES ASSOCIATE Lane Gilliland - 04/19/2007 1:[address] [facility] Progress Note (Nursing) Patient Name: Megan Wong Date of : 1965 Identify/Problem(s): Gi status Desired Outcome(s): Pt will have bowel movement before discharge Evaluation: Pt lethargic at start of shift; easily arousable. Talked with pt on giving enema in the morning around 6am; pt agreed. +bs. Abd firm, non-tender. Pt passing flatus. Enema given at 0700 Plan: Give enema to help promote bowel movement Lane Ballesteros, ---End of Report --- CAL SALES ASSOCIATE Patti Lynch - 04/18/2007 10:[address] [facility] Progress Note (Nursing) Patient Name: Megan Wong Date of : 1965 Identify/Problem(s): GI Status. Comfort Desired Outcome(s): Will have return to normal GI function. Will have adequate pain management. Evaluation: Pt is alert and oriented x4. VSS. LS clear. BS+ X4. Pt had no results from bowel regimen given today. Had suppository and MOM during day and 2/3 of mag citrate bottle at end of day into early evening shift. Could not finish mag citrate due to nausea. Ate 25% of evening meal. States is passing gas and can hear and feel things rumbling around in there. States she is not uncomfortable. Order received for additional dose of MOM. Pt did not want fleets enema that is available to her. Feels that she would not make it to the commode in time given her mobility status. Agrees whe will be more agressive again in morning with doing what it takes to get things moving. Complains of pain x1. Given Vicodin and Vistaril. States she has some relief after an hour. Is resting comfortably at this time. Plan: Continue to moniter for return to normal GI function; adequate pain management and tx per plan of care. Patti Bahena RN ---End of Report --- CAL SALES ASSOCIATE Jessica Romero - 04/18/2007 4:[address] [facility] PT Progress Note Patient Name: Megan Wong Date of : 1965 Pt was seen in dept this pm. Pt demonstrated mod indep with basic transfers. Ambulation with ax crutches 40ft x 2 with mod indep, TDWB L LE. Stairs- up/down 4 using single crutch and railing with supervision. Pt was issued crutches for home. Pt was instructed on home exercise program consisting of quad/glut isometrics, heelslides, short arc quad and long arc quads. Exercise handouts provided for home. Pt ok for d/c to home from PT standpoint. Jessica Romero PT Rosalia Sotelo - 04/18/2007 2:[address] [facility] Progress Note (Nursing) Patient Name: Megan Wong Date of : 1965 Identify/Problem(s): IMPAIRED GI STATUS/COMFORT/DC PLANNING Desired Outcome(s): PT WILL HAV4E BM/PT WILL HAVE ADEQUATE PAIN CONTROL/PT WILL VERBALIZE UNDERSTANDING OF PLANNED DC AND F/U Evaluation: PT IS PASSING FLATUS, BUT ONLY HAD VERY TINY HARD STOOL. GIVEN MOM AT 0800, DUCOLUX SUPP AT 0900 ANDIS SIPPING ON MAG [place]RITE PRESENTLY. MEDICATED TIMES 2 WITH 2 VICODIN WITH RELIEF GAINED. PT HOPES TO PASS THERAPY THIS AFTERNOON AND BE DC'D LATER TODAY. Plan: CONT TO MONITOR AIN CONTROL, GI STATUS AND NOTIFY MD OF ANY CHANGE IN STATUS Rosalia Schafer LPN ---End of Report --- CAL SALES ASSOCIATE Sloane Harvey - 04/18/2007 2:03 PM CST PT HAS BEEN ASSESSED,AGREE WITH NOTE AND PLAN OF CARE. CAL SALES ASSOCIATE Jessica Romero - 04/18/2007 12:[address] [facility] PT Progress Note Patient Name: Megan Wong Date of : 1965 Pt was seen in dept this am. Pt with no new complaints. Pt able to transfer sit to stand with mod indep given extra time. Ambulation with RW 40ft x 2 with sba, NWB L LE. Stairs- up/down 4 using rail and single crutch with cga. Pt was instructed in L LE ROM exercises to do in seated and supine position. Pt has RW available to use at home, will issued crutches next session for stairs. Anticipate pt will be able to d/c to home today. Plan to cont x 1 more session. Rec supervision on stairs upon d/c initially. Jessica Romero, PT CAL SALES ASSOCIATE Rosina Morgan - 04/18/2007 11:[address] [facility] [place] Occupational Therapy Progress Note Patient Name: Megan Wong Date of : 1965 Todays Date: 04/18/2007 Treatment Summary: The patient was seen this am at bedside for completion of ADL evaluation. The patient was able to transfer to EOB with modified independence. The patient was able to complete toileting independently. The patient was able to complete toilet transfer with modified independence. The patient decided to sit up in chair upon leaving. The patient was set up with call light, television, and water. Notified nursing of patient complaints. Pain: no c/o pain during therapy activities Action Taken: patient agreed to continue therapy Activity Tolerance: Good Education: Provided patient education, training, and/or instruction in the following areas as relevant to meaningful participation in daily occupations: provided support and encouragement and answered questions related to rehab course. Patient and/or caregiver response to teaching: verbalized understanding Recommendations: Patient is able to function independently and is safe to return home. Discharge OT. Amount of time spent in patient contact: 30 minutes MIGUEL Holcomb/Marcos (pager) OT Dept #: [phone] - OT Weekend Pager #: [phone] - [facility] Main #: [phone] CAL SALES ASSOCIATE Irene Mascorro - 04/18/2007 9:[address] [facility] Progress Note (MD) Patient Name: Megan Wong Date of : 1965 Date of service: 04/18/07 Diagnosis: Sacroiliac fusion, fever, abdominal pain, prior lumbar fusion Admit Date/Time: 04/15/2007 5:32 AM Attending Prov: Zachary Kirkland Patient Service: Orthopedics Subjective: Patient feeling much better. OVERHEAD FOREMAN stopped yesterday. Ambulating. Still has LLQ pain but improved, thinks it's likely related to constipation. Able to eat without nausea or vomiting. No breathing difficulties. A little dizzy when walking. No cough, fever, chills. Objective: BP Temp Temp src Pulse Resp SpO2 Height Wt - Scale 04/18/07 0700 94/47 mmHg 97.9 ??F (36.6 ??C) Oral 83 16 96 % - - 04/18/07 0500 - 99 ??F (37.2 ??C) - - - - - - 04/18/07 0000 115/64 mmHg 100.9 ??F (38.3 ??C) Oral 100 18 94 % - - 04/17/07 1600 91/53 mmHg 98.9 ??F (37.2 ??C) Oral 93 16 95 % - - 04/17/07 1342 - 99.2 ??F (37.3 ??C) - - - - - - Temp (24hrs), Av.2 ??F (37.3 ??C), Min:97.9 ??F (36.6 ??C), Max:100.9 ??F (38.3 ??C) Intake and Output: Gross per 24 hour Intake 1360 ml Output 2000 ml Net -640 ml Gen - Alert, no acute distress HEENT - Moist MMs, no icterus Heart - RRR with audible S1/S2 Lungs - CTA bilaterally on posterior exam Abd - Soft, (+)BS Ext - Trace LE edema Labs: HEMOGRAM/PLTS Component Value Range ??? WBC 10.3 4.0-11.0 (k/ul) ??? RBC 3.51 (*) 4.0-5.2 (M/ul) ??? HGB 11.1 (*) 12.0-16.0 (g/dl) ??? HCT 31.2 (*) 36.0-46.0 (%) ??? MCV 89.0 80-100 (fl) ??? MCH 31.7 26-34 (pg) ??? MCHC 35.6 32-36 (%) ??? RDW 12.3 11.5-14.5 (%) ??? PLTS 197 150-450 (k/ul) ??? MPV 7.7 6.5-10.0 (fl) Blood cultures remain negative Urine culture negative Imaging: CXR negative with normal-sized heart and no infiltrates Assessment and Plan: 1) POD #3 s/p sacroiliac fusion 2) Fever, resolving, with negative CXR, blood and urine cultures. WBC okay. 3) Improving abdominal pain presumed due to constipation, ordered magnesium citrate 4) Prophylaxis - Lovenox and incentive spirometer 5) Prior AP lumbar fusion 6) Tachycardia due to fever, pain and possible volume depletion, resolved after IVF 7) Post-op anemia, mild 8) Post-op pain control - oral meds Total time 25 minutes, coordination of care > 50%. Irene Mascorro MD 04/18/2007, 9:22 AM --- End of Report --- CAL SALES ASSOCIATE Hannah Borrego - 04/18/2007 2:[address] [facility] Progress Note (Nursing) Patient Name: Megan Wong Date of : 1965 Identify/Problem(s): constipation Desired Outcome(s): Will have BM Evaluation: Febrile 100.9 at 0000. Nauseated. No vomitus. Positive bowel sounds. Passing gas. Verbalized that she had not have a BM for 3 days now. Refused milk of magnesia. Suppository or fleet enema offered but declined and will think about it by am. Pain controlled by 2 tabs of vicodin and 2 tabs of vistaril. CMS intact on all extremities. Up in the commode and voided. Plan: Recheck temp at 4 am Encourage use of IS when awake. BM cares in am Nidia Villanueva RN ---End of Report --- Taniya Hanley - 04/17/2007 9:[address] [facility] Progress Note (Nursing) Patient Name: Megan Wong Date of : 1965 Identify/Problem(s): Post op pain Mobility Desired Outcome(s): Will have adequate pain control Will be able to increase activity /Transfer safely Evaluation: Complains of steady back pain /surgical site / and LLE. Transfers kassidy to commode and back to bed with min assist of 1. I'm trying to do this all by myself. CMS intact. Dressing intact with moderate dry shadowing. [facility] to [facility] post PT eval per patient. written dc orders to fax to [facility]/ care coordinated with [facility] on duty. Refused flu vaccine and MOM ordered. Afebrile the whole shift. With pending blood cultures x 2 sites today and cxray results..IS at max volume when able. Plan: Monitor for comfort Continue cares Taniya Brewster RN ---End of Report --- CAL SALES ASSOCIATE Zachary Kirkland - 04/17/2007 6:43 PM CST Post op day two. Alert, CMS intact, Reasonable comfort Progressing in PT No complication Zachary Kirkland MD CAL SALES ASSOCIATE Sena Zamarripa - 04/17/2007 3:27 PM CST Patient's name: Megan Wong Attending: Dr. Sena Zamarripa MD Date of Service: 04/17/2007 Patient cwas lying in the bed. Feeling better today. Abdominla and right leg pain improved since yesterday. Tolerating diet well.Ongoing PT and OT. Patient denies Fever ,Shortness of breath, Nausea , Vomitting , Chest pain ,constipation ,diarrhea. Overall patient feels better today. Patient Vitals in the past 8 hrs: BP Temp Temp src Pulse Resp SpO2 Height Wt - Scale 04/17/07 1342 - 99.2 ??F (37.3 ??C) - - - - - - PHYSICAL EXAM HEENT: Normal mucous membrane.Bilateral equal and reactive pupils Neck: No jugular vein distension. Chest: Auscultation:Clear bilateral No wheezes or rales Heart: Regular rate and rhythm. No murmurs or extra heart sound. Abd: Soft, bowel sounds present. No tenderness and distension. CLOTH COLORS EXAMINER Alert and oriented. Extremeties: No pitting edema, pedal pulse present bilaterally. No cyanosis. Current Meds: Current hospital medications Medication Dose Route Frequency ??? lansoprazole (PREVACID) capsule 30 mg 30 mg Oral DAILY ??? NS IV 1,000 mL 1000 mL IV CONTINUOUS ??? oxycodone (OXYCONTIN) tablet 20 mg 20 mg Oral BID ??? enoxaparin (LOVENOX) injection 40 mg 40 mg SC Q24H ??? HYDROmorphone (DILAUDID) injection 0.1-0.4 mg 0.1-0.4 mg IV Q1-2H PRN ??? hydrocodone/acetaminophen (VICODIN) 5-500 MG 1-2 Tab 1-2 Tab Oral Q4H PRN ??? propoxyphene/acetaminophen (DARVOCET-N 100) 100-650 MG 1 Tab 1 Tab Oral Q4H PRN ??? hydrOXYzine (ATARAX) tablet 25-50 mg 25-50 mg Oral Q4H PRN ??? zolpidem (AMBIEN) tablet 5 mg 5 mg Oral HS PRN ??? ondansetron (ZOFRAN) injection 4 mg 4 mg IV Q6H PRN ??? docusate (COLACE) capsule 100 mg 100 mg Oral BID ??? milk of magnesia oral suspension 30 mL 30 mL Oral ONCE PRN ??? bisacodyl (DULCOLAX) rectal suppository 10 mg 10 mg Rectal DAILY PRN ??? phosphate enema (FLEET) enema 118 mL 1 Enema Rectal DAILY PRN ??? multivitamin (HEXAVITAMIN) 1 Tab 1 Tab Oral DAILY ??? calcium carb-vit D 500 mg-200 units (OSCAL D) 1 Tab 1 Tab Oral TID ??? HYDROmorphone (DILAUDID) OVERHEAD FOREMAN 10 mg in NS 50 mL IV infusion* IV TITRATE ??? influenza virus tri-split (FLUZONE) injection 0.5 mL 0.5 mL IM PRIOR TO DISCHARGE LAB/IMAGE Lab Results Basename Value Date/Time ??? WBC 11.0 04/17/07709 ??? HGB 11.2* 04/17/07709 ??? PLTS 180 04/17/07709 Lab Results Basename Value Date/Time ??? BUN 5* 04/17/07709 ??? CREATININE 0.7 04/17/07709 Lab Results Basename Value Date/Time ??? SODIUM 138 04/17/07709 ??? K 3.7 04/17/07709 ??? CO2 29 04/17/07709 ??? CHLORIDE 104 04/17/07709 ??? GLUCOSE 103 04/17/07709 ??? GLUCOSE 111* 10/07/05 0831 ??? CA 8.5* 04/17/07709 No results found for this basename: trop:3 Intake/Output Summary (Last 24 hours) at 04/17 1527 Last data filed at 04/17 1343 Gross per 24 hour Intake 1760 ml Output 3950 ml Net -2190 ml A/P 1) POD #2 s/p sacroiliac fusion : Febrile Urine negative. Will get CXR to r/o postoeprative atelectasis/pneumonia. Blood culture and urine culture negative so far. Repeat bolood culture today. Wait until CXR report before starting any antibiotic. Incentive spirometry. 2) Prophylaxis - Lovenox and incentive spirometer 3) Prior AP lumbar fusion 4) Post-op pain control - dilaudid OVERHEAD FOREMAN To continue IVF. Sena Zamarripa MD 04/17/2007, 3:32 PM [phone] Date of Service: 04/17/2007 Report completed by: Sena Zamarripa MD ([facility]) at 3:27 PM on 04/17/2007 CAL SALES ASSOCIATE Jessica Romero - 04/17/2007 2:[address] [facility] PT Progress Note Patient Name: Megan Wong Date of : 1965 Pt was seen bid today, am bedside and pm in dept. Pt reporting ~6/10 pain in back/buttocks today. Transfers- sit to stand with supervision, sit to supine with min assist. Pt maintaining NWB/TDWB restriction on L LE. Ambulation with RW 25ft-30ft x 2 each session with cga. Stairs- up/down 4 using rail and single crutch with min assist required and cues for sequencing. Anticipate pt will benefit from at least one more day of PT (bid) to further progress mobility. Pt has RW available to use at home, but will need crutches issued for stair climbing. Will sched bid in dept tomorrow. Jessica Romero, PT CAL SALES ASSOCIATE Iván Shin - 04/17/2007 11:[address] [facility] Progress Note (Nursing) Patient Name: Megan Wong Date of : 1965 Identify/Problem(s): Fever/mobility/ Desired Outcome(s): Will have decreased temp/Will have increased activity Evaluation: patient moving very slow, temp is 99.0, is taking fluids, up in chair with assist of phy therapy, moves very slow taking po pain meds with relief, is using IS as encouraged to. Plan: Cont to encourage use of IS and get up in chair as much as possible, enc po fliuds. Iván Shin RN ---End of Report --- CAL SALES ASSOCIATE Kia Infante - 04/17/2007 11:[address] [facility] Care Management Clinical Documentation Developer Initial Assessment Name: Megan Wong Admission Date/Time: 04/15/2007 5:32 AM Attending MD: Zachary Kirkland DATA Megan Wong was referred to this Clinical Documentation Developer for discharge planning. Chart reviewed, discussed with interdisciplinary team, as well as with patient and family. Megan Wong was admitted to for a L SI fusion Insurance: Payor: [employer] [id number] Plan: [employer] INSURED Product Type: *No Product type* Current Living Situation: Patient lives with their family. and two dtrs, ages 19 & 24 Support System: family/friends Services Involved: None currently Coordination of Care and Referrals: Provided patient/family with options for discharge Barriers to Discharge: patient continues to require acute medical care ASSESSMENT The pt is POD 2 from a L SI fusion. Spoke with the pt who states she lives with her and two dtrs in a townhome in [place]. There are 3 steps with a railing to enter from the garage, with all elseon one level. She states that between her and dtrs, she will not be alone and will have all her needs met. We did discuss possible home care but she declined at this time. Is currently working with PT on crutch walking. PLAN Anticipated Discharge Date: 04/18/07 Anticipated Discharge Plan: home Plan for Follow Up: CM to continue following for d/c planning and assist with needs if they arise. Please page with any questions or concerns. Report completed by Kia Infante RN, Pager Number [phone] CAL SALES ASSOCIATE Christy Pizarro - 04/17/2007 1:[address] [facility] Progress Note (Nursing) Patient Name: Megan Wong Date of : 1965 Identify/Problem(s): Pain Desired Outcome(s): Pt will report pain within tolerable limits. Evaluation: VSS with slightly tachy HR in 90s. Pt remains febrile--temp 101.2. Pt c/o pain 5/10 in back at 0030 and was given 1 tab Darvocet with apparent relief. Pt requested Atarax at 0200 and stated the Darvocet gave her very good relief and that she could move her leg without sharp pains. Bowel sounds positive. Patient Vitals in the past 8 hrs: BP Temp Temp src Pulse Resp SpO2 Height Wt - Scale 04/17/07 0000 90/44 mmHg 101.2 ??F (38.4 ??C) Oral 94 16 94 % - - Addendum: Atarax and darvocet given at 0640. Dressing changed on back and pt repositioned. Plan: Continue to monitor pain level and address as needed. Christy Pizarro RN ---End of Report --- Sandra Cabrera - 04/16/2007 9:[address] [facility] Progress Note (Nursing) Patient Name: Megan Wong Date of : 1965 Identify/Problem(s): Comfort Desired Outcome(s): Will remain comfortable Evaluation: A & O x 4, LS clear, BS+, abdomen S/N/T, c/o LLQ pain which pt states started earlier in day, denies nausea,Pt has max temp of 101.2 and remains tachy, 100, 109, new orders written, NS infusing at 125, 2500 cc of urine output via emery,dialudid OVERHEAD FOREMAN discontinued and pt started on oral meds, notified regarding pt status and request for oycontin,pt bathed and repostitioned. Plan: Continue to monitor, turn Q2 hours, reassess need for emery in am, encourage IS. Sandra Blackmon RN ---End of Report --- CAL SALES ASSOCIATE Irene Mascorro - 04/16/2007 6:[address] [facility] Progress Note (MD) Patient Name: Megan Wong Date of : 1965 Date of service: 04/16/07 Diagnosis: Fever, abdominal pain, L sacroiliac fusion for sacralgia, prior AP lumbar fusion Admit Date/Time: 04/15/2007 5:32 AM Attending Prov: Zachary Kirkland Patient Service: Orthopedics Subjective: Patient complaining of LLQ pain which started earlier today and is worse now. Intermittently nauseated and receiving anti-emetics. She is s/p sacroiliac fusion yesterday - tolerated the procedure well.Febrile today, recent temperature up to 101.2. Has Emery in place. Denies cough or purulent sputum. H as not passed any stool. Is tolerating oral meals. Denies recent UTI or previous pyelonephritis. Incision pain okay, but on dilaudid OVERHEAD FOREMAN. Occasionally desats due to sleepiness, but sats rise to 98% (room air) with coughing and increased alertness. Objective: BP Temp Temp src Pulse Resp SpO2 Height Wt - Scale 04/16/07 1541 109/54 mmHg 101.2 ??F (38.4 ??C) Oral 100 20 95 % - - 04/16/07 1250 106/65 mmHg 100.9 ??F (38.3 ??C) Oral 101 18 93 % - - 04/16/07 0735 108/66 mmHg 99.5 ??F (37.5 ??C) Oral 99 16 99 % - - 04/16/07 0400 117/66 mmHg 100 ??F (37.8 ??C) Oral 93 18 99 % - - 04/16/07 0000 105/43 mmHg 97.5 ??F (36.4 ??C) Oral 93 20 100 % - - 04/15/07 2000 102/57 mmHg 98.9 ??F (37.2 ??C) Oral 83 14 97 % - - 04/15/07 1900 112/54 mmHg 98.6 ??F (37 ??C) Oral 83 16 99 % - - Temp (24hrs), Av.5 ??F (37.5 ??C), Min:97.5 ??F (36.4 ??C), Max:101.2 ??F (38.4 ??C) O2 Device: Room air Intake and Output: Gross per 24 hour Intake 1948.75 ml Output 2450 ml Net -501.25 ml Meds: ??? NS IV 1,000 mL 1000 mL IV CONTINUOUS ??? enoxaparin (LOVENOX) injection 40 mg 40 mg SC Q24H ??? HYDROmorphone (DILAUDID) injection 0.1-0.4 mg 0.1-0.4 mg IV Q1-2H PRN ??? hydrocodone/acetaminophen (VICODIN) 5-500 MG 1-2 Tab 1-2 Tab Oral Q4H PRN ??? propoxyphene/acetaminophen (DARVOCET-N 100) 100-650 MG 1 Tab 1 Tab Oral Q4H PRN ??? hydrOXYzine (ATARAX) tablet 25-50 mg 25-50 mg Oral Q4H PRN ??? zolpidem (AMBIEN) tablet 5 mg 5 mg Oral HS PRN ??? multivitamin (HEXAVITAMIN) 1 Tab 1 Tab Oral DAILY ??? calcium carb-vit D 500 mg-200 units (OSCAL D) 1 Tab 1 Tab Oral TID ??? HYDROmorphone (DILAUDID) OVERHEAD FOREMAN 10 mg in NS 50 mL IV infusion* IV TITRATE ??? influenza virus tri-split (FLUZONE) injection 0.5 mL 0.5 mL IM PRIOR TO DISCHARGE Gen - Relatively alert, no acute distress HEENT - Moist MMs, no icterus Heart - Tachycardic with audible S1/S2 Lungs - CTA bilaterally on posterior exam Abd - Voluntary guarding in LLQ, bowel sounds normal Ext - Trace LE edema Labs: HEMOGRAM/PLTS Component Value Range ??? WBC 10.8 4.0-11.0 (k/ul) ??? RBC 3.82 (*) 4.0-5.2 (M/ul) ??? HGB 12.4 12.0-16.0 (g/dl) ??? HCT 34.5 (*) 36.0-46.0 (%) ??? MCV 90.1 80-100 (fl) ??? MCH 32.5 26-34 (pg) ??? MCHC 36.1 (*) 32-36 (%) ??? RDW 13.3 11.5-14.5 (%) ??? PLTS 194 150-450 (k/ul) ??? MPV 8.9 6.5-10.0 (fl) Blood cultures, UA/UC and LFTs pending Imaging: AXR pending Assessment and Plan: 1) POD #1 s/p sacroiliac fusion 2) Fever, checking UA/UC and blood cultures, WBC presently okay, no signs of sepsis. Follow clinically. 3) Abdominal pain, rule out constipation/perforation with AXR. Hgb okay, LFTs pending. 4) Prophylaxis - Lovenox and incentive spirometer 5) Prior AP lumbar fusion 6) Tachycardia due to fever, pain and possible volume depletion, change IVF to NS 7) Post-op pain control - dilaudid OVERHEAD FOREMAN Total time for chart review, exam and interview, following up on labs and ultimately reviewing AXR 35 minutes, coordination of care > 50%. Report Completed by: Irene Mascorro MD --- End of Report --- CAL SALES ASSOCIATE Leanna French - 04/16/2007 2:[address] [facility] Progress Note (Nursing) Patient Name: Megan Wong Date of : 1965 Identify/Problem(s): GENERAL STATU. Desired Outcome(s): Will be stabilized. Evaluation: Pt oriented but quite sleepy. On resident athletic trainer dilaudid with adequate pain control. C/o nausea, received prn zofran with relief. Incision to lower back is intact with some shadowing. Cms to LE intact. Vss exceptfor temp of 99.5 and 100.9 at 0800 and noon respectively. Lungs clear, encouraged IS usage. MD updated. Plan: Cont to monitor, assess and medicate as indicated. Leanna Perales Mba, RN ---End of Report --- CAL SALES ASSOCIATE Rosina Morgan - 04/16/2007 1:[address] [facility] Occupational Therapy The patient is scheduled to be seen by OT. MIGUEL Holcomb/Marcos (pager) OT Dept #: [phone] - OT Weekend Pager #: [phone] - [facility] Main #: [phone] Gavin Ortiz - 04/16/2007 10:[address] [facility] Clinical Pharmacy Medication Reconciliation Note Patient Name: Megan Wong Date of : 1965 Medications Reviewed and Reconciled: Any medication adjustments made from patient's medication history regimen are appropriate for current hospitalization and medical condition. PHARMACIST NAME: Gavin Sanchez Phone/Pager #: [phone] -- End of Report -- Huseyin Dey - 04/16/2007 7:[address] [facility] Progress Note (Nursing) Patient Name: Megan Wong Date of : 1965 Identify/Problem(s): pain Desired Outcome(s): Will have maximum Evaluation: Pt neuro intact, lower back incision d/i with small shadow, takes I.S to 1250, got 50mg of atarax for muscle pain with relief, repositioned often on this shift. BP improved. Used 4.73 mg of dilaudid OVERHEAD FOREMAN-- new syringe placed at 0800. Presently lying down in bed without problem. Plan: Will continue to monitor Huseyin Miguel RN ---End of Report --- Zachary Porter - 04/16/2007 7:53 AM CST Post op day one Alert, CMS intact Reasonable comfort. No complication evident P: per protocol PT Zachary Kirkland MD Sandra Cabrera - 04/15/2007 11:[address] [facility] Progress Note (Nursing) Patient Name: Megan Wong Date of : 1965 Identify/Problem(s): Comfort Desired Outcome(s): Will remain comfortable Evaluation: Vitals stable with exception of low BP, BP at 1600 103/61, recheck at 2000 102/57, LS clear, BS hypo, ate 50% of clear liquid dinner, denies N/V, SOB, CP, CMS + to BLE , moderate amount of shadowing noted, pain controlled with dilaudid OVERHEAD FOREMAN (14.9 mg of dilauid used) and atarax, emery patent with good amount of output, plexipulses on BLE. Plan: Continue to monitor. Sandra Blackmon RN ---End of Report --- Iván Pinto - 04/15/2007 1:[address] [facility] Nursing Post-Op Note Patient Name: Megan Wong Date of : 1965 Admission Date/Time: 04/15/2007 5:32 AM Returned to: 9E on (date) 04/15/07 at (time) 1230 from [facility] Transported by: Litter/cart Medical devices present on return from O.R.: IV General condition on return from O.R.: fair Report Completed by: Iván Shin RN ---End of Report--- CAL SALES ASSOCIATE Zachary Kirkland - 04/15/2007 8:03 AM CST Post op note Left SI fusion for sacralgia No complications EBL 100 cc Plan per orders, OVERHEAD FOREMAN, PT home in 2-3 days Zachary Kirkland MD CAL SALES ASSOCIATE documented in this encounter Procedure Notes Zachary Kirkland - 04/15/2007 11:00 AM CST DATE OF OPERATION: 04/15/2007 STAFF SURGEON: Zachary Kirkland MD PREOPERATIVE DIAGNOSIS: Intractable pain, left sacroiliac joint. POSTOPERATIVE DIAGNOSIS: Intractable pain, left sacroiliac joint. PROCEDURE: Left sacroiliac fusion using a titanium interposition device as a BMP and application of cancellous allograft. Use of intraoperative Stealth computer- assisted navigation. ANESTHESIA: General. COMPLICATIONS: None. ESTIMATED BLOOD LOSS: 50 mL. INDICATIONS: Patient has had previous lumbar fusion surgery and apparent transitional failure of theleft sacroiliac. She has classic local findings and failed conservative trial. The nature of sacroiliac fusion surgery has been discussed with her and she consents. PROCEDURE: The patient was prepped and draped prone on a 4-enforcement manager. A longitudinal incision was made under x-ray control to the deep fascia. The reference frame for the Stealth was applied to the dorsalprocess of 3 and a spin was obtained. The reference probe was used to approximate the proper trajectory into the sacroiliac joint and this was replaced with threaded Steinmann pins. These were 2.4 pins from the Rafi 5.5 cannulated screw set. Three were placed using a drill guide from the cannulated set, positioning the center of the screws 1.6 cm apart. These were drilled into the recess of the sacroiliac joint proximally and distally, all parallel, and then these were overdrilled with a 9 mm Acufex reamer and then it was tapped to 12. A 12 mm device was placed inferiorly and seated very securely. A 12 mm device was attempted in the middle, but this spun out and it was replaced by 14 x 26 mm device which held well and the 12 mm device was then placed proximally. BMP was used the following fashion: 60 grams of crushed was moistened to the consistency of wet sawdust and after the BMP had rested on its collagen sponges for 15 minutes, one half of a small was morcellized into the graft and the other one-half was cut into thirds and placed inside the titanium cages which were introduced into the side joint and its extra-articular recess. This seemed to give excellent clinical appearance. Intraoperative CT scan using the iso-C confirmed satisfactory appearance with no complication. The fascial incision was closed with interrupted running Biosyn which was also used to hold down theflap. Running 0 Vicryl in the midline and 2-0 Vicryl buried vertical mattress stitches on the skin. The patient tolerated the procedure well and left the operating room in satisfactory condition. PLAN: Patient will be toe touch weight-bearing for 6 weeks, Lovenox and OVERHEAD FOREMAN Dilaudid, home in 2-3 days. Zachary Kirkland MD mjb Dictated: 04/15/2007 11:00:01 Transcribed: 04/15/2007 11:53:11 Doc #: [id number] cc:Zachary Kirkland MD, Referring Physician Jose Colin, , Primary Physician DO NOT SIGN UNLESS PRESENT FOR PROCEDURE I attest that I was present for and participated in the ma portions of this procedure(s) in compliance with the Health Care Financing Administration Teaching Physician Guidelines. Signed Date [facility] Staff Physician 1 Page 2 Patient Name: MEGAN WONG OPERATIVE REPORT CONFIDENTIAL MEDICAL RECORD [address] [address] Page 1 Patient: MEGAN WONG Location: OR HPN: [id number] Admit Date: 04/15/2007 Date of : 1965 Discharge Date: Age: 42Y OPERATIVE REPORT CAL SALES ASSOCIATE documented in this encounter Plan of Treatment Not on filedocumented as of this encounter Procedures Procedure Name Priority Date/Time Associated Comments Diagnosis COMPLETE BLOOD Routine 04/18/2007 6:25 AM Results for this COUNT-NO DIFF MEDICAL SALES ASSOCIATE procedure are in the results section. BLOOD CULTURE SITE 2 Routine 04/17/2007 6:15 PM R esults for this MEDICAL SALES ASSOCIATE procedure are i n the results section. BLOOD CULTURE Routine 04/17/2007 5:50 PM Results for this MEDICAL SALES ASSOCIATE procedure are i n the results section. CHEST PA/LATERAL Routine 04/17/2007 3:51 PM Resul ts for this MEDICAL SALES ASSOCIATE procedure are i n the results section. BASIC METABOLIC PANEL Routine 04/17/2007 7:10 AM Results for this MEDICAL SALES ASSOCIATE procedure are i n the results section. COMPLETE BLOOD Routine 04/17/2007 7:10 AM Results for this COUNT-NO DIFF MEDICAL SALES ASSOCIATE procedure are in the results section. URINE CULTURE Routine 04/16/2007 8:45 PM Results for this MEDICAL SALES ASSOCIATE procedure are i n the results section. UA CONDITIONAL UC Routine 04/16/2007 8:45 PM Resu lts for this MEDICAL SALES ASSOCIATE procedure are i n the results section. BLOOD CULTURE SITE 2 Routine 04/16/2007 8:00 PM R esults for this MEDICAL SALES ASSOCIATE procedure are i n the results section. GOLD HOLD TUBE (OR Routine 04/16/2007 8:00 PM Res ults for this RED/LOPEZ) MEDICAL SALES ASSOCIATE procedure are i n the results section. BLOOD CULTURE Routine 04/16/2007 8:00 PM Results for this MEDICAL SALES ASSOCIATE procedure are i n the results section. BASIC METABOLIC PANEL Routine 04/16/2007 8:00 PM Results for this MEDICAL SALES ASSOCIATE procedure are i n the results section. BILIRUBIN, TOTAL & Routine 04/16/2007 8:00 PM Res ults for this DIRECT MEDICAL SALES ASSOCIATE procedure are i n the results section. COMPLETE BLOOD Routine 04/16/2007 8:00 PM Results for this COUNT-NO DIFF MEDICAL SALES ASSOCIATE procedure are in the results section. ALT (SGPT) Routine 04/16/2007 8:00 PM Results f or this MEDICAL SALES ASSOCIATE procedure are i n the results section. AST Routine 04/16/2007 8:00 PM Results f or this MEDICAL SALES ASSOCIATE procedure are i n the results section. ALKALINE PHOSPHATASE, Routine 04/16/2007 8:00 PM Results for this TOTAL MEDICAL SALES ASSOCIATE procedure are i n the results section. CT PELVIS WITHOUT IV Routine 04/16/2007 10:40 Res ults for this CONTRAST AM MEDICAL SALES ASSOCIATE procedure are i n the results section. AP PELVIS Routine 04/15/2007 10:50 Results for this AM MEDICAL SALES ASSOCIATE procedure are i n the results section. FUSION SACRAL ILIAC AM Admit 04/15/2007 7:50 AM SI PAIN MEDICAL SALES ASSOCIATE Case Notes PROC: LEFT SI FUSION ABO RH & ANTIBODY SCREEN STAT 04/15/2007 6:50 AM MEDICAL SALES ASSOCIATE Results for this procedure (TYPE & SCREEN) are in the r esults section. documented in this encounter Results (ABNORMAL) HEMOGRAM/PLTS (04/18/2007 6:25 AM MEDICAL SALES ASSOCIATE) P athologist Signature WBC 10.3 4.0 - 11.0 [facility] k/ul RBC 3.51 (L) 4.0 - 5.2 [facility] M/ul Hemoglobin 11.1 (L) 12.0 - 16.0 [facility] g/dl HCT 31.2 (L) 36.0 - 46.0 REG[facility] % MCV 89.0 80 - 100 fl [facility] MCH 31.7 26 - 34 pg [facility] MCHC 35.6 32 - 36 % [facility] RDW 12.3 11.5 - 14.5 REG[facility] % Platelets 197 150 - 450 [facility] k/ul MPV 7.7 6.5 - 10.0 REG[facility] fl Specimen Anatomical Collection Method Collection Time Receive d Time (Source) Location / / Volume Laterality 04/18/2007 6:25 AM 7 6:36 MEDICAL SALES ASSOCIATE AM MEDICAL SALES ASSOCIATE Eddiedaedilia Zamarripa MD LAB_1 Performing Organization Address City/State/ZIP Code Phon e Number [address] [address] [place], [place] [phone] BLOOD CULTURE SITE 2 (04/17/2007 6:15 PM MEDICAL SALES ASSOCIATE) Component Value Ref Test Analysis Performed At Patholo gist Range Method Time Signature Specimen Blood [facility] Description VENIPUNCTURE Special Site 2 [facility] Requests Venipuncture Culture No Growth After [facility] 6 Days Report Status Final 04/23/2007 [facility] Specimen Anatomical Location Collection Method Collection Time Received Time (Source) / Laterality / Volume Blood specimen VENIPUNCTURE / 04/17/2007 6:15 04/17/20 07 8:14 (specimen) Unknown PM MEDICAL SALES ASSOCIATE PM MEDICAL SALES ASSOCIATE Sena Zamarripa MD LAB_1 Performing Organization Address [facility]/ZIP [facility] Phon e Number [address] [address] [place], [place] [phone] BLOOD CULTURE SITE 1 (04/17/2007 5:50 PM MEDICAL SALES ASSOCIATE) [facility] gist Method Time Signature Specimen Blood AT IV REG[facility] Description INSERTION Special Site 1 At IV [facility] Requests Insertion Culture No Growth [facility] After 6 Days Report Status Final [facility] 04/23/2007 Specimen Anatomical Collection Method Collection Time Receive d Time (Source) Location / / Volume Laterality Blood specimen 04/17/2007 5:50 PM 007 6:25 (specimen) (At MEDICAL SALES ASSOCIATE PM MEDICAL SALES ASSOCIATE IV Insertion) Sena Zamarripa MD LAB_1 Performing Organization Address City/[facility] Phon e Number [address] [address] [place], [place] [phone] CHEST PA/LATERAL (04/17/2007 3:51 PM MEDICAL SALES ASSOCIATE) Anatomical Region Laterality Modality Other Specimen (Source) Anatomical Collection Method Collection Time Re ceived Time Location / / Volume Laterality 04/17/2007 3:51 PM MEDICAL SALES ASSOCIATE Narrative 04/19/2007 1:34 PM MEDICAL SALES ASSOCIATE pneumonia: FEVER . CHEST 2 VIEWS 04/17/07 INDICATION: ??Fever and pneumonia. COMPARISON: ??None. FINDINGS: ??No infiltrates. ??Heart norm al size allowing for technique. Post-op change lower cervical spine. Sena Zamarripa MD RAD GENERAL DIAGNOSTIC/RH (ABNORMAL) BASIC METABOLIC PANEL (04/17/2007 7:10 AM MEDICAL SALES ASSOCIATE) athologist Signature BUN 5 (L) 10 - 26 [facility] mg/dl Sodium 138 135 - 145 [facility] mmol/L Potassium 3.7 3.5 - 5.3 [facility] mmol/L Chloride 104 95 - 105 [facility] mmol/L CO2 29 22 - 31 [facility] mmol/L Glucose 103 65 - 115 [facility] mg/dl Creatinine 0.7 0.6 - 1.3 [facility] mg/dl GFR, Estimated >80.0 >60 [facility] ml/min/1.7 3m2 GFR, Est., If >80.0 >60 [facility] Black ml/min/1.7 3m2 Calcium 8.5 (L) 8.6 - 10.3 [facility] mg/dl Anion Gap 5 (L) 7 - 17 [facility] (calc.) mmol/L Comment: Result Checked Specimen Anatomical Collection Method Collection Time Receive d Time (Source) Location / / Volume Laterality 04/17/2007 7:10 AM 7 7:30 MEDICAL SALES ASSOCIATE AM MEDICAL SALES ASSOCIATE Irene Mascorro MD LAB_1 Performing Organization Address [facility] Phon e Number [address] [address] [place], [place] [phone] (ABNORMAL) HEMOGRAM/PLTS (04/17/2007 7:10 AM MEDICAL SALES ASSOCIATE) [facility] WBC 11.0 4.0 - 11.0 [facility] k/ul RBC 3.49 (L) 4.0 - 5.2 [facility] M/ul Hemoglobin 11.2 (L) 12.0 - 16.0 [facility] g/dl HCT 31.6 (L) 36.0 - 46.0 [facility] % MCV 90.5 80 - 100 fl [facility] MCH 32.2 26 - 34 pg [facility] MCHC 35.6 32 - 36 % [facility] RDW 12.4 11.5 - 14.5 REG[facility] % Platelets 180 150 - 450 [facility] k/ul MPV 7.6 6.5 - 10.0 REG[facility] fl Specimen Anatomical Collection Method Collection Time Receive d Time (Source) Location / / Volume Laterality 04/17/2007 7:10 AM 7 7:30 MEDICAL SALES ASSOCIATE AM MEDICAL SALES ASSOCIATE Irene Mascorro MD LAB_1 Performing Organization Address [facility] Phon e Number [address] [address] [place], [place] [phone] URINE CULTURE (04/16/2007 8:45 PM MEDICAL SALES ASSOCIATE) [facility] Method Time Signature Specimen Urine REGIONS Description Special Unspecified REG[facility] Requests Culture No Growth After REG[facility] 2 Days Report Status Final [facility] 04/18/2007 Specimen Anatomical Collection Method Collection Time Receive d Time (Source) Location / / Volume Laterality 04/16/2007 8:45 PM 7 9:17 MEDICAL SALES ASSOCIATE PM MEDICAL SALES ASSOCIATE Zachary Kirkland MD LAB_1 Performing Organization Address [facility] Phon e Number [address] [address] [place], [place] [phone] (ABNORMAL) UA CONDITIONAL UC (04/16/2007 8:45 PM MEDICAL SALES ASSOCIATE) [facility] Method Time Signature Urine Color None REGIONS Urine Clarity Clear [facility] Specific 1.001 (L) 1.005 - REGIONS Merrill,Ur 1.03 pH, Urine 5.5 4.5 - 8.0 [facility] Protein, Urine Negative NEG mg/dl [facility] Qual Glucose, Urine 70 (A) NEG mg/dl [facility] Qual Ketones, Urine Negative NEG mg/dl [facility] Urobil, Urine <2.0 <2.0 mg/dl [facility] Qual Bilirubin, Negative NEG [facility] Urine Blood, Urine Small (A) NEG [facility] Nitrite, Urine Negative NEG [facility] Leukocyte Negative NEG [facility] Est., Ur RBC'S <1 0 - 3 /hpf [facility] WBC'S 1 0 - 5 /hpf [facility] Bact Occ [facility] Mucous, Urine Present [facility] Specimen Anatomical Collection Method Collection Time Receive d Time (Source) Location / / Volume Laterality Urine specimen 04/16/2007 8:45 PM 007 9:00 (specimen) MEDICAL SALES ASSOCIATE PM MEDICAL SALES ASSOCIATE Irene Mascorro MD LAB_1 Performing Organization Address [facility] Phon e Number [address] [address] [place], [place] [phone] GOLD HOLD TUBE (OR RED/LOPEZ) (04/16/2007 8:00 PM MEDICAL SALES ASSOCIATE) [facility] Method [place] Signature Gold Hold Held in REGIONS Tube Chemistry sample rack for 7 days Specimen Anatomical Collection Method Collection Time Receive d Time (Source) Location / / Volume Laterality 04/16/2007 8:00 PM 7 8:21 MEDICAL SALES ASSOCIATE PM MEDICAL SALES ASSOCIATE Irene Mascorro MD LAB_1 Performing Organization Address [facility] Phon e Number [address] [address] [place], [place] [phone] BILIRUBIN, TOTAL & DIRECT (04/16/2007 8:00 PM MEDICAL SALES ASSOCIATE) athologist Signature Bilirubin, 0.8 0.2 - 1.2 [facility] Total mg/dl Bilirubin, 0.2 0.1 - 0.4 [facility] Direct mg/dl Specimen Anatomical Collection Method Collection Time Receive d Time (Source) Location / / Volume Laterality 04/16/2007 8:00 PM 7 8:21 MEDICAL SALES ASSOCIATE PM MEDICAL SALES ASSOCIATE Irene Mascorro MD LAB_1 Performing Organization Address [facility] Phon e Number [address] [address] [place], [place] [phone] ALKALINE PHOSPHATASE, TOTAL (04/16/2007 8:00 PM MEDICAL SALES ASSOCIATE) athologist Signature Alkaline 77 34 - 104 [facility] Phosphatase U/L Specimen Anatomical Collection Method Collection Time Receive d Time (Source) Location / / Volume Laterality 04/16/2007 8:00 PM 7 8:21 MEDICAL SALES ASSOCIATE PM MEDICAL SALES ASSOCIATE Irene Mascorro MD LAB_1 Performing Organization Address City/[facility] Phon e Number [address] [address] [place], [place] [phone] ALT (SGPT) (04/16/2007 8:00 PM MEDICAL SALES ASSOCIATE) P athologist Signature ALT (SGPT) 12 0 - 55 U/L [facility] Specimen Anatomical Collection Method Collection Time Receive d Time (Source) Location / / Volume Laterality 04/16/2007 8:00 PM 7 8:21 MEDICAL SALES ASSOCIATE PM MEDICAL SALES ASSOCIATE Irene Mascorro MD LAB_1 Performing Organization Address City/[facility]/ZIP [facility] Phon e Number [address] [address] [place], [place] [phone] AST (04/16/2007 8:00 PM MEDICAL SALES ASSOCIATE) athologist Signature AST (SGOT) 21 <45 U/L [facility] Specimen Anatomical Collection Method Collection Time Receive d Time (Source) Location / / Volume Laterality 04/16/2007 8:00 PM 7 8:21 MEDICAL SALES ASSOCIATE PM MEDICAL SALES ASSOCIATE Irene Mascorro MD LAB_1 Performing Organization Address [facility] Phon e Number [address] [address] [place], [place] [phone] (ABNORMAL) BASIC METABOLIC PANEL (04/16/2007 8:00 PM MEDICAL SALES ASSOCIATE) athologist Signature BUN 4 (L) 10 - 26 [facility] mg/dl Sodium 136 135 - 145 [facility] mmol/L Potassium 3.6 3.5 - 5.3 [facility] mmol/L Chloride 102 95 - 105 [facility] mmol/L CO2 26 22 - 31 [facility] mmol/L Glucose 166 (H) 65 - 115 [facility] mg/dl Creatinine 0.7 0.6 - 1.3 [facility] mg/dl GFR, Estimated >80.0 >60 [facility] ml/min/1.7 3m2 GFR, Est., If >80.0 >60 [facility] Black ml/min/1.7 3m2 Calcium 8.7 8.6 - 10.3 [facility] mg/dl Anion Gap 8 7 - 17 [facility] (calc.) mmol/L Specimen Anatomical Collection Method Collection Time Receive d Time (Source) Location / / Volume Laterality 04/16/2007 8:00 PM 7 8:21 MEDICAL SALES ASSOCIATE PM MEDICAL SALES ASSOCIATE Irene Mascorro MD LAB_1 Performing Organization Address [facility] Phon e Number [address] [address] [place], [place] [phone] (ABNORMAL) HEMOGRAM/PLTS (04/16/2007 8:00 PM MEDICAL SALES ASSOCIATE) P athologist Signature WBC 10.8 4.0 - 11.0 [facility] k/ul RBC 3.82 (L) 4.0 - 5.2 [facility] M/ul Hemoglobin 12.4 12.0 - 16.0 [facility] g/dl HCT 34.5 (L) 36.0 - 46.0 [facility] % MCV 90.1 80 - 100 fl [facility] MCH 32.5 26 - 34 pg [facility] MCHC 36.1 (H) 32 - 36 % [facility] RDW 13.3 11.5 - 14.5 [facility] % Platelets 194 150 - 450 [facility] k/ul MPV 8.9 6.5 - 10.0 [facility] fl Specimen Anatomical Collection Method Collection Time Receive d Time (Source) Location / / Volume Laterality 04/16/2007 8:00 PM 7 8:21 MEDICAL SALES ASSOCIATE PM MEDICAL SALES ASSOCIATE Irene Mascorro MD LAB_1 Performing Organization Address [facility] Phon e Number [address] [address] [place], [place] [phone] BLOOD CULTURE SITE 2 (04/16/2007 8:00 PM MEDICAL SALES ASSOCIATE) Component Value Ref Test Analysis Performed At [facility] Range Method Time Signature Specimen Blood REG[facility] Description Special Venipuncture [facility] Requests Culture No Growth After [facility] 6 Days Report Status Final 04/22/2007 [facility] Specimen Anatomical Location Collection Method Collection Time Received Time (Source) / Laterality / Volume Blood specimen VENIPUNCTURE / 04/16/2007 8:00 04/16/20 07 8:56 (specimen) Unknown PM MEDICAL SALES ASSOCIATE PM MEDICAL SALES ASSOCIATE Irene Mascorro MD LAB_1 Performing Organization Address City/[facility] Phon e Number [address] [address] [place], [place] [phone] BLOOD CULTURE SITE 1 (04/16/2007 8:00 PM MEDICAL SALES ASSOCIATE) Component Value Ref Test Analysis Performed At [facility] [place] [place] Method Time Signature Specimen Blood REG[facility] Description Special Venipuncture [facility] Requests Culture No Growth After [facility] 6 Days Report Status Final 04/22/2007 [facility] Specimen Anatomical Location Collection Method Collection Time Received Time (Source) / Laterality / Volume Blood specimen VENIPUNCTURE / 04/16/2007 8:00 04/16/20 07 8:57 (specimen) Unknown PM MEDICAL SALES ASSOCIATE PM MEDICAL SALES ASSOCIATE Irene Mascorro MD LAB_1 Performing Organization Address City/State/ZIP Code Phon e Number [address] [address] [place], [place] [phone] CT PELVIS WITHOUT IV CONTRAST (04/16/2007 10:40 AM MEDICAL SALES ASSOCIATE) Anatomical Region Laterality Modality Other Specimen (Source) Anatomical Collection Method Collection Time Re ceived Time Location / / Volume Laterality 04/16/2007 10:40 AM MEDICAL SALES ASSOCIATE Impressions 04/19/2007 12:07 PM MEDICAL SALES ASSOCIATE IMPRESSION: Three Ray cages in the left sacroiliac j oint extra-articular recess. ??No evidence of loosening. ??Co mplete bony fusion is not yet appreciated. Narrative 04/19/2007 12:[address] sacrum, donna sacral joints from L4-acetabulum, with axial,sagital SACROILIAC JOINT CT 04/16/2007: COMPARISON: ??Pelvic MRI 06/01/2005. INDICATIONS: ??Fusion. TECHNIQUE: ??Helical images were obtaine d from L3-4 through the proximal femurs and evaluated in the axi al plane with sagittal and coronal reformations. FINDINGS: ??The right sacroiliac joint d emonstrates minimal posterior iliac osteophytic spurring. ?? Well preserved joint space. No geode formation. Three Ray cages have been placed in the extra-articular recess of the left sacroiliac joint. ??They are pa cked with bone centrally. Heterotopic bone is noted along the post erior aspects of the cages. No evidence of loosening. ??Mild scleros is noted on either side of the left sacroiliac joint anteriorly. ?? In this area there is minimal osteophytic spurring. ??Minimal iliac osteophytic spurring is noted posteriorly. The lumbosacral junction demonstrates po st-surgical change from a L5-S1 anterior and posterior fusion. ??O steophytic spurring mildly compromises the right foraminal inlet. [place] UNITS: ?? Right iliac wing 234, right sacral ala 2 5. Left iliac wing 227, left sacral ala 77. Zachary Kirkland MD RAD CT/RH AP PELVIS (04/15/2007 10:50 AM MEDICAL SALES ASSOCIATE) Anatomical Region Laterality Modality Other Specimen (Source) Anatomical Collection Method Collection Time Re ceived Time Location / / Volume Laterality 04/15/2007 10:50 AM MEDICAL SALES ASSOCIATE Narrative 04/15/2007 10:50 AM MEDICAL SALES ASSOCIATE LEFT SI FUSION IN O.R.15 AT [phone] HRS. Zachary Kirkland MD RAD GENERAL DIAGNOSTIC/RH ABO Rh & Antibody Screen (Type & Screen) (04/15/2007 6:50 AM MEDICAL SALES ASSOCIATE) Patholo gist Method Time Signature Crossmatch 04/18/2007 [facility] Expires ABO/RH(D) O POSITIVE [facility] Antibody NEGATIVE [facility] Screen Specimen Anatomical Collection Method Collection Time Receive d Time (Source) Location / / Volume Laterality 04/15/2007 6:50 AM 7 6:56 MEDICAL SALES ASSOCIATE AM MEDICAL SALES ASSOCIATE Zachary Kirkland MD LAB_1 Performing Organization Address City/State/ZIP Code Phon e Number [address] [address] [place], [place] [phone] documented in this encounter Visit Diagnoses Initial Assessments - Rosina Morgan - 04/17/2007 11:33 AM [facility] [place] [facility] Orthopedic ADL Evaluation Patient Name: Megan Wong Date of : 1965 Todays Date: 04/17/2007 Objective Diagnosis: sacroiliac fusion After ADL training the patient's functional performance is as follows: Self Cares UE Dressing: NT LE Dressing: modified independent Toileting: TBA Bathing: NT Transfers Bed Mobility: SBA with use of bed rail Sit to Stand: SBA Toilet: TBA Tub/Shower: NT secondary to having a walk-in shower Home Management Meal Prep: NT, has family that will assist her, one daughter comes home at lunch time Pain: patient describes pain as increased with sitting but better than yesterday Action Taken: patient agreed to continue therapy Summary/Assessment Patient requires minimum assist with ADL's. Any needed assistance will be provided by family member. Education: Reviewed with patient and patient verbalized understanding of precautions and functional restrictions as well as use of good body mechanics during dressing, bathing, toileting, and homemaking tasks. To increase independence and safety the following equipment is recommended: Condenser Cleaner: patient has Standard shower chair without backrest: patient has Additional Information: The patient had a sacroiliac fusion and is TDWB on the left LE. The patient lives with her and daughters. She states they will be able to assist her at home. The patient was able to complete lower body dressing with a crossing watchman which she used previously at home. Will assess toilet transfer at next session. Plan Recommend one time more to complete ADL and adaptive equipment training. Goals Functional goals to be met prior to discharge from acute service: Patient will complete toilet transfer with modified independence and use of adaptive equipment as necessary. Patient will demonstrate independence with lower body dressing. Patient's goals: Return home MIGUEL Holcomb/Marcos (pager) OT Dept #: [phone] - OT Weekend Pager #: [phone] - [facility] [place] Main #: [phone] CAL SALES ASSOCIATE Initial Assessments - Jessica Romero - 04/16/2007 2:07 PM CST [facility] Physical Therapy Evaluation Patient Name: Megan Wong Date of : 1965 Todays date: 04/16/2007 Age: 42 yr Patient seen: bedside Diagnosis: sacralgia Subjective Residence: House, With stairs to enter (3 with railing available thru garage entrance). Assist Available: Spouse, Family 9daughters available to assist follow d/c, pt reports her works during the day) Prior level of function: Independent Equipment: Walker ? Objective: Current Level of Function Bed Mobility: Supine to sit with moderate assist via log roll. Transfers: Sit to standing with minimum assist Stand to sitting with minimum assist Bed to/from chair with minimum assist Wheelchair Mobility: Not tested Ambulation: Not tested, pt stood with walker for support, TTWB on L LE during transfer with min assist. Gait to be assessed next session if tolerable. Stairs: Not tested Balance and Coordination: Sitting: static: good Standing: static: fair + with UE support. ROM (lower extremity): Within functional limits for tasks done. Manual Muscle Test/Strength (lower extremity): Within functional limits for tasks done. Endurance: Within functional limits for tasks done. Neurological Sensation: Grossly intact Tone: Normal Cognition: Drowsy Oriented to: Person, Place and Time Pain Patient complains of 8/10 pain in L buttocks. Tolerance: Patient tolerated treatment without adverse effects Education Provide education regarding role of physical therapy during hospitalization Provide support and encouragement and answered questions related to rehab course Adaptive Equipment Recommendations Pt will benefit from use of: Wheeled Walker vs crutches. Physical therapist to issue AD if needed prior to d/c. Assessment and Recommendations Pt is a 42y/o female s/p L SI fusion. Pt with TDWB restriction on L LE. Pt was seen for PT eval and presents with impaired mobility, significant pain and decreased level of alertness. Anticipate pt will need at least 2 more days of PT prior to d/c home. Pt will need to be able to safely ambulate and climb stairs while maintaining TDWB on L LE prior to d/c home. Plan of Care Continue Physical Therapy daily for functional mobility and safety, range of motion, strengthening and endurance, patient/family education and home exercise program Goals Patient will be able to perform bed mobility with modified independence. Patient to transfer bed to and from chair and sit to and from stand with modified independence. Patient to ambulate 75 feet using appropriate AD and correct weight bearing status with modified independence. Patient to negotiate 4-6 stairs with 1-2 rails, requiring minimum assist. Patient/Family Goals: None expressed Amount of time spent in patient contact: PM: 30 minutes Jessica Romero PT Phone number is [phone] Pager: [phone] CAL SALES ASSOCIATE Initial Assessments - Iván Shin - 04/15/2007 1:[address] [facility] Med-Surg, ICU Initial Assessment Note Patient Name: Megan Wong Date of : 1965 General Information Demographics Admitted from: OR to 9E Reason for admission: SI Fusion [facility] admission date/time: 04/15/2007 5:32 AM Actual arrival on unit: date: 04/15/07 time: 1300 Admitting provider: Zachary Kirkland. Is the patient's ID band on? Yes Is this patient a transfer from another hospital for Trauma? No Primary Care Physician or Clinic: [facility] Contact Information Primary Emergency Contact: FUNMILAYO RODRIGUES Relation: Spouse Patient Identification Patient indentity confirmed by: full name including last, first & middle and birthdate. Source of identifying information:patient. History Allergies: Erythromycin Past Medical History Diagnosis Date ??? ESOPHAGEAL REFLUX ??? 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 NORMAL DELIVERY times 2 Past Surgical History Procedure Date ??? Tonsillect prim/sec; under age 10 ??? Neck spinal fusion 2000 c5-c7 ??? L5-s1 microdiskectomy, hemilaminectomy, foraminotomy 09/13 ??? delivery only; 1987 and tubal ligation ??? Excision of ganglion wrist; primary 07-13-05 rt ??? Other - procedures 1984 cryo to uterine cervix Has she had recent exposure to communicable diseases? No Does she have a history for resistant organism? None Immunizations Immunization History Name Date(s) Administered ??? Td, Preservative Free 06/16/2005 Pneumococcal Immunization Assessment & Administration (year round) Patient is an adult age 65 years of age or older OR patient has prison health problems? 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 [High Risk Factors include an underlying chronic medical conditions (heart disease, asthma, chronic disorders or he pulmonary or cardiovascular systems). Also a patient who required regular medical follow-up or hospitalization during the preceding year because of diabetes, kidney diseases, blood disorders, metabolic disorders, immunosuppression, including HIV/AIDS, and other chronic diseases.] Vac ordered Medications (Active Outpatient Meds) No medications the patient reported taking on file as of 04/01/2007 See comments in the medications tab for last dose taken. Is the patient taking herbal medications? No Medications confirmed with patient or family at this time? Yes Neurological Assessment Level of consciousness: Alert and Oriented and Lethargic Orientation: x4 Other neurological findings: No apparent abnormalities EENT Head/Neck Assessment: No apparent abnormalities. Eye Assessment: No apparent abnormalities. Ear Assessment: No apparent abnormalities. Nose Assessment: No apparent abnormalities. Throat Assessment: No apparent abnormalities. Additional EENT info: None Screening Criteria Does patient have special speech, hearing or vision needs? No. No special needs identified. Respiratory Assessment History Tobacco Use Never Lung Sounds: Clear, all valdez No apparent abnormalities Screening criteria Are respiratory needs likely at discharge? No. Cardiovascular Assessment Rhythm: Regular Heart Sounds: No apparent abnormalities Other abnormal cardiovascular findings: None Gastrointestinal/Nutrition Assessment Bowel sounds: Active/Normal all quadrants Last bowel movement date: 04/14/07 Additional abnormal gastrointestinal findings: None Diet: Regular diet Nutrition Consult Screening: No GI/nutrition screening criteria applicable. Dietary Consult has NOT been sent. (Not needed) Genitourinary Megan Wong presents with: No apparent genitourinary abnormalities Integumentary Assessment Skin temperature: warm and dry Skin color: normal Other Integumentary findings: No apparent abnormalities Alex Scale score: Score: 18 If Alex Score is <18, initiate skin interventions. Musculoskeletal Assessment Pain/Stiffness: Back post op Screening Criteria Has MD been notified of potential rehabilitation or PT/OT needs due to mobility? Yes Pain Pain assessment: Site 1.) Location of pain: back, Chronic, Descriptions: Ache, Intermittant and Pressing, Pain Level:3, Duration: intermittent, Current treatment methods: Speech And Drama Teacher dilaudid, Method of expressing pain: Verbal, Desired pain goal: 0 Functional Assessment Are there any recent changes in level of ADL's? Yes bedrest today Current Level of Assist with these ADL's: Eating: Independent Activity: Assistance Elimination: Assistance Hygiene: Assistance Functional screening: RN to notify MD of potentional rehabilitation for PT/OT/Speech Therapy needs, due to functional changes from baseline which prevents the patient from returning to independent or assisted living (changes in swallowing, ADL, mobility or cognition). Psychosocial Assessment Mental Health/Psychological Assessment Patient Behavior: calm, cooperative and pleasant. Mental health findings: No apparent abnormalities. Suicide Screening Question: Suicide Risk Do you currently have or recently had thoughts of harming or killing youself?: No Suicide Risk-Total Score: (not recorded) Total Score Summary: (not recorded) For nursing interventions, see policy: PC:12:10 Current Social Situation Marital Status: Occupation: unknown She lives with family in a home. Social Screening: No Discharge Planning screening criteria applicable. Are there any Agencies/Community Support Services involved before admission: No. Is there Guardianship issues affecting care planning? No Spiritual/Lutheran Is the nurse aware, at present, of any needs or issues for which support from the hospital senior tax analyst might be helpful to patient and/or family? (e.g. need or desire for spiritual support, difficulty coping, end of life issues, grief/loss, etc.) No. ([facility] makes daily rounds to all anglican patients.) Cultural On the Best Care/Best Experience questionnaire, does the patient have cultural practices that effectpatient care? No. Actual or Suspected Assault/Abuse Evidence of actual or suspected abuse or assault (physical, sexual or emotional): No evidence of assault or abuse. Chemical Use History Alcohol Use ??? Yes rarely History Drug Use No Chemical Use Screening: No Chemical Use screening criteria applicable. Safety Falls 1) History of Falls (either at home or during hospitalization)? Unsure 2) Is she age greater than 65 (This qualifier alone may not require the Fall Prevention Program but should be used with nursing judgement)? No 3) Is she disoriented? No 4) Impaired judgement? Yes 5) Use of mobility device? Yes 6) Sensory perceptual deterioration(vision/hearing)? No 7) Muscle weakness/mobility impairment? Yes 8) Bowel/Bladder incontinence? Yes 9) Dizziness/vertigo or postural hypotension? No 10) Seizures/epilepsy? No 11) Communication impairment? No 12) Attached to movement-limiting equipment (compression boots, chest tubes, EKG leads, etc.)? Yes 13) Is she currently taking medications that may increase fall risk? Yes With the exception of question 2 alone, are any of the above falls risk assessment questions answered 'yes'? No Restraints The following criteria place this patient at additional risk if restraints are used: None Does the patient present with behaviors that put them at risk for restraint use? No (If any behavior criteria noted, initiate restraint alternatives.) Contributors to this document I (Iván Shin) have contributed to the completion of this document. CAL SALES ASSOCIATE documented in this encounter Active and Recently Administered Medications Times are shown in MEDICAL SALES ASSOCIATE. Scheduled Medication Order 04/17/2007 04/18/2007 04/19/2007 calcium carb-vit D 500 mg-200 units (OSCAL D) 1 Tab (C ANCELED) 0800 (Given - Provider: Iván Shin)1400 (Due)2100 (Given - Provider: Taniya Brewster) 0800 (Given - Provider: Rosalia Schafer)1400 (Given - Provider: Rosalia Schafer)2000 (Given - Provider: Patti Lynch) 0800 (Given - Provider: Rosalia Schafer)1400 (Given - Provider: Rosalia Schafer) 1 Tab, Oral, TID, First dose on 04/15 at 1400, Until Disconti nued docusate (COLACE) capsule 100 mg (CANCELED) 0800 (Give n - Provider: Iván Shin)2100 (Given - Provider: Taniya Brewster) 0800 (Given - Provider: Rosalia Schafer)2000 (Given - Provider: Patti Lynch) 0800 (Given - Provider: Rosalia Schafer) 100 mg, Oral, BID, First dose on 04/15 at 2000, Until Discont inued enoxaparin (LOVENOX) injection 40 mg (CANCELED) 0800 ( Given - Provider: Iván Shin) 0800 (Given - Provider: Rosalia Schafer) 0800 (Given - Provider: Rosalia Schafer) 40 mg, SC, Q24H, First dose on 04/16 at 0800, Until Disconti nued lansoprazole (PREVACID) capsule 30 mg (CANCELED) 1700 (Given - Provider: Taniya Brewster) 0800 (Given - Provider: Rosalia Schafer) 0800 (Given - Provider: Rosalia Schafer) 30 mg, Oral, DAILY, First dose on 04/17 at 1528, Until Discon tinued magnesium citrate oral solution 296 mL (COMPLETED) 1129 (Given - Provider: Rosalia Schafer) 296 mL (1 Bottle), Oral, ONCE, On Elda 04/18/07 at 1129, For 1 dos e milk of magnesia oral suspension 30 mL (COMPLETED) 2144 (Given - Provider: Patti Lynch) 30 mL, Oral, ONCE, On Sun04/18/07 at 2126, For 1 dose multivitamin (HEXAVITAMIN) 1 Tab (CANCELED) 0800 (Given - Pr ovider: Iván Shin) 0800 (Given - Provider: Rosalia Schafer) 0800 (Given - Provider: Rosalia Schafer) 1 Tab, Oral, DAILY, First dose on 04/16 at 0800, Until Disco ntinued oxycodone (OXYCONTIN) tablet 20 mg (CANCELED) 0800 (Gi kiley - Provider: Iván Shin)2100 (Given - Provider: Taniya Brewster) 0800 (Given - Provider: Rosalia Schafer)214 (Given - Provider: Patti Lynch) 0800 (Given - Provider: Rosalia Schafer) 20 mg, Oral, BID, First dose on 04/16 at 2155, Until Discont inued Continuous Medication Order 04/17/2007 04/18/2007 04/19/2007 NS IV 1,000 mL (CANCELED) 0305 (Started - Provider: Christy Pizarro) at 125 mL/hr, 1000 mL, IV, CONTINUOUS, S tarting 04/16 at 1817, Until Discontinued PRN Medication Order 04/17/2007 04/18/2007 04/19/2007 bisacodyl (DULCOLAX) rectal suppository 10 mg (CANCELED) 0900 (Given - Provider: Rosalia Schafer) 10 mg, Rectal, DAILY PRN, Starting 04/15 at 0800, Until Disco ntinued hydrocodone/acetaminophen (VICODIN) 5-500 MG 1-2 Tab ( CANCELED) 1700 (Given - Provider: Taniya Brewster) 0100 (Given - Provider: Hannah garcia)0900 (Given - Provider: Rosalia Schafer)2024 (Given - Provider: Patti Lynch - Comment: Rates pain at 10/18.) 0715 (Given - Provider: Lane Kwok)171 (Given - Provider: Ant Thomas) 1-2 Tab, Oral, Q4H PRN, Starting 04/15 at 0800, Until Discont inued hydrOXYzine (ATARAX) tablet 25-50 mg (CANCELED) 0200 ( Given - Provider: Christy Pizarro)0640 (Given - Provider: Christy Pizarro)1200 (Given - Provider: Iván Shin)170 (Given - Provider: Taniya Brewster) 0100 (Given - Provider: Hannah Borrego)2024 (Given - Provider: Patti Lynch - Comment: Rates pain at 10/18.) 0715 (Given - Provider: Lane pierre)1716 (Given - Provider: Ant Thomas) 25-50 mg, Oral, Q4H PRN, Starting 04/15 at 0800, Until Discon tinued milk of magnesia oral suspension 30 mL (CANCELED) 2101 (Refused - Provider: Taniya Brewster) 0900 (Given - Provider: Rosalia Schafer) 30 mL, Oral, ONCE PRN, Starting 04/17 at 2200, Until Disconti nued ondansetron (ZOFRAN) injection 4 mg (CANCELED) 199 (Given - Provider: Lane Gilliland) 4 mg, IV, Q6H PRN, Starting 04/15 at 0800, Until Discontinued phosphate enema (FLEET) enema 118 mL (CANCELED) 07 (Given - Provider: Lane Gilliland) 118 mL (1 Enema), Rectal, DAILY PRN, Sta rting on Sun04/15/07 at 0800, Until Sun04/19/07 at 2052, Constipation propoxyphene/acetaminophen (DARVOCET-N 100) 100-650 MG 1 Tab (CANCELED) 0035 (Given - Provider: Christy Pizarro)0640 (Given - Provider: Christy Pizarro)1200 (Given - Provider: Iván Shin) 1 Tab, Oral, Q4H PRN, Starting 04/15 at 0800, Until Discontin ued documented in this encounter Care Teams Pipe Machine Operator Relationship Specialty Start Date End Date Jose Colin DO PCP - General 12/24/03 09/17/08 [address] [place] [phone] documented as of this encounter
--- OUTSIDE RECORDS SUMMARY | 2022-01-17 22:23 | XMS_ITS | Encounter Summary ---
:1965 Author Organization [facility] Address [address] [address] Care Team Providers Name Role Phone Jose Colin DO Primary Care Provider [phone] Reason for Visit Reason Onset Date Comments Same Day/Next Day Appt. 04/30/2007 Same Day Appt Encounter Details Date Type Department Care Team Description 04/30/2007 Telephone [facility] Same Day/Ne Appt. Medicine Jose Allan DO (Same Day Appt [address] [facility]. [address] 04/30/07) [place] [address] [place], [place] [phone] [address] Social History Tobacco Use Types Packs/Day Years Used Date Smoking Tobacco: Never Alcohol Use Standard Drinks/Week Comments Yes 0 (1 standard drink = 0.6 oz pure alcoho l) rarely Sex Assigned at Date Recorded Not on file documented as of this encounter Nursing Notes Hanna Shin - 04/30/2007 1:21 PM CST Pt sched RY ASSISTANT Cristhian Romo - 04/30/2007 10:37 AM CST Patient requesting appointment for: Today 04/30/07 Symptoms: Pt stated needs a f/u as soon as possible per her surgeon to make sure that she doesnt have any blood clots. She would like to see someone today. Please call her at phone [phone] Cristhian Romo RY ASSISTANT documented in this encounter Plan of Treatment Not on filedocumented as of this encounter Visit Diagnoses Not on filedocumented in this encounter Care Teams Television News Anchor Relationship Specialty Start Date End Date Jose Colin DO PCP - General 12/24/03 09/17/08 [address] [place] [address] documented as of this encounter
--- OUTSIDE RECORDS SUMMARY | 2022-01-17 22:23 | XMS_ITS | Encounter Summary ---
:1965 Author Organization [facility] Address [address] [address] Care Team Providers Name Role Phone DixieJose Jerrell BOOGIE Primary Care Provider [phone] Encounter Details Date Type Department Care Team Description 03/22/2006 Office Visit [facility] Huseyin Vogt, Arrived Cardiac Surgery PA-C [address] [facility] [address] [place] [address] [place] [address] [phone] (Wo rk) Social History Tobacco Use Types Packs/Day Years Used Date Smoking Tobacco: Never Alcohol Use Standard Drinks/Week Comments Yes 0 (1 standard drink = 0.6 oz pure alcoho l) rarely Sex Assigned at Date Recorded Not on file documented as of this encounter Last Filed Vital Signs Vital Sign Reading Time Taken Comments Blood Pressure 112/70 03/22/2006 2:00 PM CDT Pulse 80 03/22/2006 2:00 PM CDT Temperature - - Respiratory Rate - - Oxygen Saturation 97% 03/22/2006 2:00 PM CDT Inhaled Oxygen Concentration - - Weight 86.6 kg (191 lb) 03/22/2006 2:00 PM CDT Height - - Body Mass Index 33.83 02/13/2006 4:00 PM CDT documented in this encounter Progress Notes Huseyin Vogt - 04/11/2006 10:28 AM 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 Galvan. The patient had a procedure done on 02/19/2006, an anterior intercalary femoral ring allografting, anterior lumbar fusion, application of cancellous allograft, application of [employer] BMP and distraction of the L5 through S1 disk space. Anterior exposure for diskectomy and bony fusion of L5 to S1. She is a 41 -year-old white female who presented to the office with complaint of surgical wound drainage for the last few days. When I asked the patient if she had any fevers or chills, the patient denied. She also denied any nausea or vomiting or abdominal cramping. She just told me that her surgical wound started to drain clear fluid in the last 3 days. She had no other complaints. On physical examination, the patient's surgical wound was noted to be a pinhole wound in the hypogastrium area. With palpation and pressure to the pinhole surgical wound, there was some clear fluid ejected very minimally. There was no pus noted upon examination. The surgical wound was nontender to palpation. No indurated areas of erythema. ASSESSMENT: hypogastric surgical wound drainage, perhaps secondary to surgical stitch. I have prescribed the patient a Keflex 500 mg 1 p.o. q. 6h for 7 days, prophylactically to prevent wound infection. I have asked her to return in 7 days for followup. At this time her surgical wound does not appearinfected to me, however, I have given her my cell phone number and my card to call me in case she has signs of infection, such as fevers or chills and if her surgical wound is to get very red and tender as I have explained to her. The patient has understood my instructions. Huseyin Vogt PA-C lag Dictated: 03/22/2006 14:07:09 Transcribed: 03/25/2006 12:40:40 Doc #: [id number] cc:Jose Colin DO, Primary Physician This document was electronically reviewed by Huseyin Vogt PA-C on 04/04/2006 14:26:23. This document was electronically signed by Kleber Galvan MD on 04/11/2006 10:28:00. 1 Page 1 Patient Name: PADMINI CHOI Visit Date: 03/22/2006 CARDIOLOGY [facility] [address] [id number] Page 1 Patient: [facility]AD[id number] Date of : 1965 Age: 40Y Visit Date: 03/22/2006 CARDIOLOGY documented in this encounter Nursing Notes 03/22/2006 2:00 PM CDT >> TRINY DELGADO 03/22/2006 2:18 pm Jose Colin DO PT HERE FOR F/U documented in this encounter Plan of Treatment Not on filedocumented as of this encounter Visit Diagnoses Not on filedocumented in this encounter Care Teams Breast Splitter Relationship Specialty Start Date End Date Jose Colin DO PCP - General 12/24/03 09/17/08 [address] [place] [address] documented as of this encounter
--- OUTSIDE RECORDS SUMMARY | 2022-01-17 22:23 | XMS_ITS | Encounter Summary ---
:1965 [facility] Address [address] [place] [address] Care Team Providers Name Role Phone Jose Colin DO Primary Care Provider [phone] Encounter Details Date Type Department Care Team Description 05/06/2007 Orders Only [facility] DVT (Deep Venous [address] Thrombosis) [place], [place] [id number] Social History Tobacco Use Types Packs/Day Years [...] Associated Diagnosis Comme nts INR/PROTIME Same Day 05/06/2007 8:01 AM DVT (Deep Venous Resul ts for this [employer] Thrombosis) procedure are i n the results section . documented in this encounter Results (ABNORMAL) INR/PROTIME (05/06/2007 8:01 AM [employer]) P athologist Signature Protime 24.2 (H) 12.0 - [facility] 14.5 sec Coumad[facility] Specimen Anatomical Collection Method Collection Time Receive d Time (Source) Location / / Volume Laterality 05/06/2007 8:01 AM 7 8:02 [facility] AM [facility] Jose Colin DO LAB_1 Performing Organization Address City/State/ZIP Code Phon e Number [facility] [phone] [facility] [address] [address] documented in this encounter Visit Diagnoses Diagnosis DVT (deep venous thrombosis) ([facility]) Acute venous embolism and thrombosis of unspecified deep vessels of lower extremity documented in this encounter Care Teams Ceramist Relationship Specialty Start Date End Date Jose Colin DO PCP - General 12/24/03 09/17/08 [address] [place] [address] documented as of this encounter
--- OUTSIDE RECORDS SUMMARY | 2022-01-17 22:23 | XMS_ITS | Encounter Summary ---
:1965 Author Organization [facility] Address [address] [place] [address] Care Team Providers Name Role Phone MoJose medina Jerrell BOOGIE Primary Care Provider [phone] Encounter Details Date Type Department Care Team Description 04/15/2007 - Hospital Encounter RH C91 Zachary Kirkland MD 04/19/[address] [place] [address] [address] [place] [address] [place], [place] [phone] [id number] Social History Tobacco Use Types Packs/Day Years Used Date Smoking Tobacco: Never Alcohol Use Standard Drinks/Week Comments Yes 0 (1 standard drink = 0.6 oz pure alcoho l) rarely Sex Assigned at Date Recorded Not on file documented as of this encounter Last Filed Vital Signs Vital Sign Reading Time Taken Comments Blood Pressure 105/50 04/19/2007 7:15 AM SPINNERET PERSON Pulse 92 04/19/2007 7:15 AM SPINNERET PERSON Temperature 37.2 ??C (98.9 ??F) 04/19/2007 7:15 AM SPINNERET PERSON Respiratory Rate 16 04/19/2007 7:15 AM SPINNERET PERSON Oxygen Saturation 96% 04/19/2007 7:15 AM SPINNERET PERSON Inhaled Oxygen Concentration - - Weight 89.4 kg (197 lb) 04/15/2007 6:07 AM SPINNERET PERSON Height 160 cm (5' 3) 04/15/2007 6:07 AM SPINNERET PERSON Body Mass Index 34.9 04/15/2007 6:07 AM SPINNERET PERSON documented in this encounter Discharge Summaries Zachary Kirkland - 05/15/2007 9:55 AM SPINNERET PERSON ADMIT DATE: 04/15/2007 DISCHARGE DATE: 04/19/2007 FINAL [...] aspirin for anticoagulation prophylaxis. Zachary Kirkland MD [facility] Dictated: 05/15/2007 09:55:58 Transcribed: 05/16/2007 10:31:51 Doc #: [id number] cc:Zachary Kirkland MD, Referring Physician Jose Colin DO, Primary Physician 1 Page 1 Patient Name: MEGAN WONG DISCHARGE SUMMARY CONFIDENTIAL MEDICAL RECORD [address] [address] Page 1 Patient: MEGAN WONG Location: HPN: [id number] Admit Date: 04/15/2007 Date of : 1965 Discharge Date: 04/19/2007 Age: 42Y DISCHARGE SUMMARY NERET PERSON documented in this encounter Discharge Instructions Discharge InstructionsAmanda Lawrence - 04/19/2007 6:43 PM SPINNERET PERSON ` Discharge Instructions for: Megan Wong Thank you for choosing [facility] as your hospital. Please read the following instructions carefully. The staff will go over this information with you and answer your questions. General Information Allergies: Erythromycin Immunization: Most Recent Immunizations Name Date(s) Administered * Td, Preservative Free 06/16/2005 Phone number: [phone] (home) [phone] (work) Discharging physician: RICHARD Discharge date: 04/19/07 [...] the anticoagulation order. Contact information (name/clinic/phone number): [phone] When to Resume Normal Activities: Order Comments: Crutches toe touch 6 weeks Toe touch Order Comments: . Do not resume full weight bearing on the affected limb(s) until your care provider tells you to do so. Diet Order Comments: Per preop Clinic Referral Order Comments: DOCTORS NAME: Richard REASON FOR APPOINTMENT: two weeks Condition at [...] been sent to the following clinic:{[facility] FAX DESTINATION:[id number]} Home Care Instructions Patient Teaching Handouts INCISION [...] and/or chills Community Resources NONE Contact Information [address] [id number] For questions about your discharge instructions call the nursing unit : [phone] Emergency & Urgently Needed Care: For emergencies call 911 and/or get medical help right away. If you are a [employer] member and have medical needs after clinic hours you may call the CareLine at [phone] or . Smoking and second-hand smoke exposure: Smoking damages blood vessels, reduces the oxygen in your blood and makes your heart beat too fast.If you smoke you should quit. Everyone should avoid second- hand smoke. If you would like further assistance after your discharge, please contact [phone] or visit [email or web address] can offer further information and assistance. You will receive a patient satisfaction survey either at the time of discharge or by mail in about two weeks. We want to hear about your stay at [facility]. Please help us improve by telling us about your experience . When leaving your room at discharge, please stop at the nursing unit desk to check out. I understand my discharge instructions: Megan Wong (or Metalizing Supervisor) NERET PERSON documented in this encounter Medications at Time [...] Ant Thomas - 04/19/2007 6:27 PM CST [facility] Hospital Discharge Note - Nursing Patient Name: [...] by: Robert Pelaez RN ---End of Report--- NERET PERSON Maria E Galindo - 04/19/2007 2:25 PM CST I have evaluated this patient and reviewed all related documentation. Maria E Galindo RN 04/19/2007 2:[address] Gilliland - 04/19/2007 1:56 AM CST [facility] Progress Note (Nursing) Patient Name: Megan Wong [...] movement Lane Ballesteros, ---End of Report --- NERET PERSON Patti Lynch - 04/18/2007 10:57 PM CST [facility] Progress Note (Nursing) Patient Name: Megan Wong [...] Patti Bahena RN ---End of Report --- NERET PERSON Jessica Romero - 04/18/2007 4:13 PM CST [facility] PT Progress Note Patient Name: Megan Wong [...] d/c to home from PT standpoint. Jessica Romero, PT Rosalia Sotelo - 04/18/2007 2:03 PM CST [facility] Progress Note (Nursing) Patient Name: Megan Wong [...] Rosalia Schafer LPN ---End of Report --- NERET PERSON Sloane Harvey - 04/18/2007 2:03 PM CST PT HAS BEEN ASSESSED,AGREE WITH NOTE AND PLAN OF CARE. NERET PERSON Jessica Romero - 04/18/2007 12:57 PM CST [facility] PT Progress Note Patient Name: Megan Wong [...] supervision on stairs upon d/c initially. Jessica Romero PT NERET PERSON Rosina Morgan - 04/18/2007 11:44 AM CST [facility] [place] Occupational Therapy Progress Note Patient Name: Megan [...] minutes MIGUEL Holcomb/Marcos (pager) OT Dept #: [phone] - OT Weekend Pager #: [phone] - [facility] Main #: [phone] NERET PERSON Irene Mascorro - 04/18/2007 9:15 AM CST [facility] Progress Note (MD) Patient Name: Megan Wong Date of : 1965 Date of service: 04/18/07 Diagnosis: Sacroiliac fusion, fever, abdominal pain, prior lumbar fusion Admit Date/Time: 04/15/2007 5:32 AM Attending Prov: Zachary Kirkland Patient Service: Orthopedics Subjective: Patient feeling much better. PIPE INSULATOR stopped yesterday. Ambulating. Still has LLQ pain [...] 9:22 AM --- End of Report --- NERET PERSON Hannah Borrego - 04/18/2007 2:36 AM CST [facility] Progress Note (Nursing) Patient Name: Megan Wong [...] Taniya Hanley - 04/17/2007 9:31 PM CST [facility] Progress Note (Nursing) Patient Name: Megan Wong [...] fax to Facility [facility]/ care coordinated with [facility] on duty. Refused flu vaccine and MOM ordered. Afebrile the whole shift. With pending blood cultures x 2 sites today and cxray results..IS at max volume when able. Plan: Monitor for comfort Continue cares Taniya Brewster RN ---End of Report --- NERET PERSON Zachary Kirkland - 04/17/2007 6:43 PM CST Post op day two. Alert, CMS intact, Reasonable comfort Progressing in PT No complication Zachary Kirkland MD NERET PERSON Sena Zamarripa - 04/17/2007 3:27 PM CST [...] bowel sounds present. No tenderness and distension. 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 Extremeties: No pitting edema, [...] 1 Tab Oral TID ??? HYDROmorphone (DILAUDID) PIPE INSULATOR 10 mg in NS 50 mL IV [...] fusion 4) Post-op pain control - dilaudid PIPE INSULATOR To continue IVF. Sena Zamarripa MD 04/17/2007, 3:32 PM [phone] Date of Service: 04/17/2007 Report completed by: Sena Zamarripa MD ([facility] medicine) at 3:27 PM on 04/17/2007 NERET PERSON Jessica Romero - 04/17/2007 2:55 PM CST [facility] PT Progress Note Patient Name: Megan Wong [...] bid in dept tomorrow. Jessica Romero, PT NERET PERSON Iván Shin - 04/17/2007 11:56 AM CST [facility] Progress Note (Nursing) Patient Name: Megan Wong [...] Iván Shin RN ---End of Report --- NERET PERSON Kia Infante - 04/17/2007 11:39 AM CST [facility] Care Management Mold Sprayer Initial Assessment Name: Megan Wong Admission Date/Time: 04/15/2007 5:32 AM Attending MD: Zachary Kirkland DATA Megan Wong was referred to this Mold Sprayer for discharge planning. Chart reviewed, discussed with interdisciplinary team, as well as with patient and family. Megan Wong was admitted to for a L SI fusion Insurance: Payor: [employer] SEL[employer] [id number] Plan: [employer] S[employer]F INSURED Product Type: *No [...] with her and two dtrs in a [facility] in [place]. There are 3 steps with a railing [...] completed by Kia Infante RN, Pager Number [phone] Christy Pepper - 04/17/2007 1:31 AM CST [facility] Progress Note (Nursing) Patient Name: Megan Wong [...] Sandra Cabrera - 04/16/2007 9:35 PM CST [facility] Progress Note (Nursing) Patient Name: Megan Wong [...] 2500 cc of urine output via emery,dialudid PIPE INSULATOR discontinued and pt started on oral meds, notified regarding pt status and request for oycontin,pt bathed and repostitioned. Plan: Continue to monitor, turn Q2 hours, reassess need for emery in am, encourage IS. Sandra Blackmon RN ---End of Report --- NERET PERSON Irene Mascorro - 04/16/2007 6:00 PM CST [facility] Progress Note (MD) Patient Name: Megan Wong [...] pyelonephritis. Incision pain okay, but on dilaudid PIPE INSULATOR. Occasionally desats due to sleepiness, but sats [...] 1 Tab Oral TID ??? HYDROmorphone (DILAUDID) PIPE INSULATOR 10 mg in NS 50 mL IV [...] NS 7) Post-op pain control - dilaudid PIPE INSULATOR Total time for chart review, exam and interview, following up on labs and ultimately reviewing AXR 35 minutes, coordination of care > 50%. Report Completed by: Irene Mascorro MD --- End of Report --- NERET PERSON Leanna French - 04/16/2007 2:14 PM CST [facility] Progress Note (Nursing) Patient Name: Megan Wong Date of : 1965 Identify/Problem(s): GENERAL STATU. Desired Outcome(s): Will be stabilized. Evaluation: Pt oriented but quite sleepy. On insole coverer dilaudid with adequate pain control. C/o nausea, received prn zofran with relief. Incision to lower back is intact with some shadowing. Cms to LE intact. Vss exceptfor temp of 99.5 and 100.9 at 0800 and noon respectively. Lungs clear, encouraged IS usage. MD updated. Plan: Cont to monitor, assess and medicate as indicated. Leanna Perales Mba, RN ---End of Report --- NERET PERSON Rosina Morgan - 04/16/2007 1:02 PM CST [facility] Occupational Therapy The patient is scheduled to be seen by OT. MIGUEL Holcomb/Marcos (pager) OT Dept #: [phone] - OT Weekend Pager #: [phone] - [facility] Main #: [phone] Gavin Ortiz - 04/16/2007 10:25 AM CST [facility] Clinical Pharmacy Medication Reconciliation Note Patient Name: Megan Wong Date of : 1965 Medications Reviewed and Reconciled: Any medication adjustments made from patient's medication history regimen are appropriate for current hospitalization and medical condition. PHARMACIST NAME: Gavin Sanchez Phone/Pager #: [phone] -- End of Report -- Huseyin Dey - 04/16/2007 7:59 AM CST [facility] Progress Note (Nursing) Patient Name: Megan Wong Date of : 1965 Identify/Problem(s): pain Desired Outcome(s): Will have maximum Evaluation: Pt neuro intact, lower back incision d/i with small shadow, takes I.S to 1250, got 50mg of atarax for muscle pain with relief, repositioned often on this shift. BP improved. Used 4.73 mg of dilaudid PIPE INSULATOR-- new syringe placed at 0800. Presently lying down in bed without problem. Plan: Will continue to monitor Huseyin Miguel RN ---End of Report --- Zachary Porter - 04/16/2007 7:53 AM CST Post op day one Alert, CMS intact Reasonable comfort. No complication evident P: per protocol PT Zachary Kirkland MD NERET PERSON Sandra Blackmon - 04/15/2007 11:57 PM CST [facility] Progress Note (Nursing) Patient Name: Megan Wong Date of : 1965 Identify/Problem(s): Comfort Desired Outcome(s): Will remain comfortable Evaluation: Vitals stable with exception of low BP, BP at 1600 103/61, recheck at 1999 102/57, LS clear, BS hypo, ate 50% of clear liquid dinner, denies N/V, SOB, CP, CMS + to BLE , moderate amount of shadowing noted, pain controlled with dilaudid PIPE INSULATOR (14.9 mg of dilauid used) and atarax, emery patent with good amount of output, plexipulses on BLE. Plan: Continue to monitor. Sandra Blackmon RN ---End of Report --- Iván Pinto - 04/15/2007 1:30 PM CST [facility] Nursing Post-Op Note Patient Name: Megan Wong Date of : 1965 Admission Date/Time: 04/15/2007 5:32 AM Returned to: 9E on (date) 04/15/07 at (time) 1230 from P.A.R. Transported by: Litter/cart Medical devices present on return from O.R.: IV General condition on return from O.R.: fair Report Completed by: Iván Shin RN ---End of Report--- NERET PERSON Zachary Kirkland - 04/15/2007 8:03 AM CST Post op note Left SI fusion for sacralgia No complications EBL 100 cc Plan per orders, PIPE INSULATOR, PT home in 2-3 days Zachary Kirkland MD NERET PERSON documented in this encounter Procedure Notes Zachary [...] was prepped and draped prone on a 4-sign carpenter. A longitudinal incision was made under x-ray [...] touch weight-bearing for 6 weeks, Lovenox and PIPE INSULATOR Dilaudid, home in 2-3 days. Zachary Kirkland MD mjb Dictated: 04/15/2007 11:00:01 Transcribed: 04/15/2007 11:53:11 Doc #: [id number] cc:Zachary Kirkland MD, Referring Physician Jose Colin, , Primary Physician DO NOT SIGN UNLESS PRESENT FOR PROCEDURE I attest that I was present for and participated in the ma portions of this procedure(s) in compliance with the Health Care Financing Administration Teaching Physician Guidelines. Signed Date Regions Staff Physician 1 Page 2 Patient Name: MEGAN WONG OPERATIVE REPORT CONFIDENTIAL MEDICAL RECORD [address] [address] Page 1 Patient: MEGAN WONG Location: [place] HPN: [id number] Admit Date: 04/15/2007 Date of : 1965 Discharge Date: Age: 42Y OPERATIVE REPORT NERET PERSON documented in this encounter Plan of Treatment Not on filedocumented as of this encounter Procedures Procedure Name Priority Date/Time Associated Comments Diagnosis COMPLETE BLOOD Routine 04/18/2007 6:25 AM Results for this COUNT-NO DIFF SPINNERET PERSON procedure are in the results section. BLOOD CULTURE SITE 2 Routine 04/17/2007 6:15 PM R esults for this SPINNERET PERSON procedure are i n the results section. BLOOD CULTURE Routine 04/17/2007 5:50 PM Results for this SPINNERET PERSON procedure are i n the results section. CHEST PA/LATERAL Routine 04/17/2007 3:51 PM Resul ts for this SPINNERET PERSON procedure are i n the results section. BASIC METABOLIC PANEL Routine 04/17/2007 7:10 AM Results for this SPINNERET PERSON procedure are i n the results section. COMPLETE BLOOD Routine 04/17/2007 7:10 AM Results for this COUNT-NO DIFF SPINNERET PERSON procedure are in the results section. URINE CULTURE Routine 04/16/2007 8:45 PM Results for this SPINNERET PERSON procedure are i n the results section. UA CONDITIONAL UC Routine 04/16/2007 8:45 PM Resu lts for this SPINNERET PERSON procedure are i n the results section. BLOOD CULTURE SITE 2 Routine 04/16/2007 8:00 PM R esults for this SPINNERET PERSON procedure are i n the results section. GOLD HOLD TUBE (OR Routine 04/16/2007 8:00 PM Res ults for this RED/LOPEZ) SPINNERET PERSON procedure are i n the results section. BLOOD CULTURE Routine 04/16/2007 8:00 PM Results for this SPINNERET PERSON procedure are i n the results section. BASIC METABOLIC PANEL Routine 04/16/2007 8:00 PM Results for this SPINNERET PERSON procedure are i n the results section. BILIRUBIN, TOTAL & Routine 04/16/2007 8:00 PM Res ults for this DIRECT SPINNERET PERSON procedure are i n the results section. COMPLETE BLOOD Routine 04/16/2007 8:00 PM Results for this COUNT-NO DIFF SPINNERET PERSON procedure are in the results section. ALT (SGPT) Routine 04/16/2007 8:00 PM Results f or this SPINNERET PERSON procedure are i n the results section. AST Routine 04/16/2007 8:00 PM Results f or this SPINNERET PERSON procedure are i n the results section. ALKALINE PHOSPHATASE, Routine 04/16/2007 8:00 PM Results for this TOTAL SPINNERET PERSON procedure are i n the results section. CT PELVIS WITHOUT IV Routine 04/16/2007 10:40 Res ults for this CONTRAST AM SPINNERET PERSON procedure are i n the results section. AP PELVIS Routine 04/15/2007 10:50 Results for this AM SPINNERET PERSON procedure are i n the results section. FUSION SACRAL ILIAC AM Admit 04/15/2007 7:50 AM SI PAIN SPINNERET PERSON Case Notes PROC: LEFT SI FUSION ABO RH & ANTIBODY SCREEN STAT 04/15/2007 6:50 AM SPINNERET PERSON Results for this procedure (TYPE & SCREEN) are in the r esults section. documented in this encounter Results (ABNORMAL) HEMOGRAM/PLTS (04/18/2007 6:25 AM SPINNERET PERSON) P athologist Signature WBC 10.3 4.0 - [...] Volume Laterality 04/18/2007 6:25 AM 7 6:36 SPINNERET PERSON AM SPINNERET PERSON Sena Zamarripa MD LAB_1 Performing Organization Address City/State/ZIP Code Phon e Number [address] [address] [place], [place] [phone] BLOOD CULTURE SITE 2 (04/17/2007 6:15 PM SPINNERET PERSON) Component Value Ref Test Analysis Performed At Patholo gist Range Method Time Signature Specimen Blood REGIONS Description VENIPUNCTURE Special Site 2 REGIONS Requests Venipuncture Culture No Growth After REGIONS 6 Days Report Status Final 04/23/2007 REGIONS Specimen Anatomical Location Collection Method Collection Time Received Time (Source) / Laterality / Volume Blood specimen VENIPUNCTURE / 04/17/2007 6:15 04/17/20 07 8:14 (specimen) Unknown PM SPINNERET PERSON PM SPINNERET PERSON Sena Zamarripa MD LAB_1 Performing Organization Address [facility]/ZIP [facility] Phon e Number [address] [address] [place], [place] [phone] BLOOD CULTURE SITE 1 (04/17/2007 5:50 PM SPINNERET PERSON) Patholo gist Method Time Signature Specimen Blood AT IV REGIONS Description INSERTION Special Site 1 At IV REGIONS Requests Insertion Culture No Growth REGIONS After 6 Days Report Status Final REGIONS 04/23/2007 Specimen Anatomical Collection Method Collection Time Receive d Time (Source) Location / / Volume Laterality Blood specimen 04/17/2007 5:50 PM 007 6:25 (specimen) (At SPINNERET PERSON PM SPINNERET PERSON IV Insertion) Sena Zamarripa MD LAB_1 Performing Organization Address City/[facility]/ZIP [facility] Phon e Number [address] [address] [place], [place] [phone] CHEST PA/LATERAL (04/17/2007 3:51 PM SPINNERET PERSON) Anatomical Region Laterality Modality Other Specimen (Source) Anatomical Collection Method Collection Time Re ceived Time Location / / Volume Laterality 04/17/2007 3:51 PM SPINNERET PERSON Narrative 04/19/2007 1:34 PM SPINNERET PERSON pneumonia: FEVER . CHEST 2 VIEWS 04/17/07 INDICATION: ??Fever and pneumonia. COMPARISON: ??None. FINDINGS: ??No infiltrates. ??Heart norm al size allowing for technique. Post-op change lower cervical spine. Sena Zamarripa MD RAD GENERAL DIAGNOSTIC/RH (ABNORMAL) BASIC METABOLIC PANEL (04/17/2007 7:10 AM SPINNERET PERSON) athologist Signature BUN 5 (L) 10 - [...] Volume Laterality 04/17/2007 7:10 AM 7 7:30 SPINNERET PERSON AM SPINNERET PERSON Irene Mascorro MD LAB_1 Performing Organization Address [facility] Phon e Number [address] [address] [place], [place] [phone] (ABNORMAL) HEMOGRAM/PLTS (04/17/2007 7:10 AM SPINNERET PERSON) athologist Signature WBC 11.0 4.0 - 11.0 REGIONS k/ul [...] Volume Laterality 04/17/2007 7:10 AM 7 7:30 SPINNERET PERSON AM SPINNERET PERSON Irene Mascorro MD LAB_1 Performing Organization Address [facility] Phon e Number [address] [address] [place], [place] [phone] URINE CULTURE (04/16/2007 8:45 PM SPINNERET PERSON) [facility] Method Time Signature Specimen Urine REGIONS Description Special Unspecified REGIONS Requests Culture No Growth After REGIONS 2 Days Report Status Final REGIONS 04/18/2007 Specimen Anatomical Collection Method Collection Time Receive d Time (Source) Location / / Volume Laterality 04/16/2007 8:45 PM 200 7 9:17 SPINNERET PERSON PM SPINNERET PERSON Zachary Kirkland MD LAB_1 Performing Organization Address [facility] Phon e Number [address] [address] [place], [place] [phone] (ABNORMAL) UA CONDITIONAL UC (04/16/2007 8:45 PM SPINNERET PERSON) [facility] Method Time Signature Urine Color None REGIONS Urine Clarity Clear REGIONS Specific 1.001 (L) 1.005 - REGIONS [place] 1.03 pH, Urine 5.5 4.5 - 8.0 [...] specimen 04/16/2007 8:45 PM 007 9:00 (specimen) SPINNERET PERSON PM SPINNERET PERSON Irene Mascorro MD LAB_1 Performing Organization Address [facility] Phon e Number [address] [address] [place], [place] [phone] GOLD HOLD TUBE (OR RED/LOPEZ) (04/16/2007 8:00 PM SPINNERET PERSON) [facility] Method Time Signature Gold Hold Held in REGIONS Tube Chemistry sample rack for 7 days Specimen Anatomical Collection Method Collection Time Receive d Time (Source) Location / / Volume Laterality 04/16/2007 8:00 PM 7 8:21 SPINNERET PERSON PM SPINNERET PERSON Irene Mascorro MD LAB_1 Performing Organization Address [facility] Phon e Number [address] [address] [place], [place] [phone] BILIRUBIN, TOTAL & DIRECT (04/16/2007 8:00 PM SPINNERET PERSON) P athologist Signature Bilirubin, 0.8 0.2 - 1.2 REGIONS Total mg/dl Bilirubin, 0.2 0.1 - 0.4 REGIONS Direct mg/dl Specimen Anatomical Collection Method Collection Time Receive d Time (Source) Location / / Volume Laterality 04/16/2007 8:00 PM 7 8:21 SPINNERET PERSON PM SPINNERET PERSON Irene Mascorro MD LAB_1 Performing Organization Address [facility]/ZIP [facility] Phon e Number [address] [address] [place], [place] [phone] ALKALINE PHOSPHATASE, TOTAL (04/16/2007 8:00 PM SPINNERET PERSON) athologist Signature Alkaline 77 34 - 104 REGIONS Phosphatase U/L Specimen Anatomical Collection Method Collection Time Receive d Time (Source) Location / / Volume Laterality 04/16/2007 8:00 PM 7 8:21 SPINNERET PERSON PM SPINNERET PERSON Irene Mascorro MD LAB_1 Performing Organization Address City/[facility]/ZIP [facility] Phon e Number [address] [address] [place], [place] [phone] ALT (SGPT) (04/16/2007 8:00 PM SPINNERET PERSON) P athologist Signature ALT (SGPT) 12 0 - 55 U/L REGIONS Specimen Anatomical Collection Method Collection Time Receive d Time (Source) Location / / Volume Laterality 04/16/2007 8:00 PM 7 8:21 SPINNERET PERSON PM SPINNERET PERSON Irene Mascorro MD LAB_1 Performing Organization Address City/[facility]/ZIP [facility] Phon e Number [address] [address] [place], [place] [phone] AST (04/16/2007 8:00 PM SPINNERET PERSON) athologist Signature AST (SGOT) 21 <45 U/L REGIONS Specimen Anatomical Collection Method Collection Time Receive d Time (Source) Location / / Volume Laterality 04/16/2007 8:00 PM 7 8:21 SPINNERET PERSON PM SPINNERET PERSON Irene Mascorro MD LAB_1 Performing Organization Address [place] [facility] Phon e Number [address] [address] [place], [place] [phone] (ABNORMAL) BASIC METABOLIC PANEL (04/16/2007 8:00 PM SPINNERET PERSON) athologist Signature BUN 4 (L) 10 - [...] Volume Laterality 04/16/2007 8:00 PM 7 8:21 SPINNERET PERSON PM SPINNERET PERSON Irene Mascorro MD LAB_1 Performing Organization Address [facility] Phon e Number [address] [address] [place], [place] [phone] (ABNORMAL) HEMOGRAM/PLTS (04/16/2007 8:00 PM SPINNERET PERSON) P athologist Signature WBC 10.8 4.0 - [...] Volume Laterality 04/16/2007 8:00 PM 7 8:21 SPINNERET PERSON PM SPINNERET PERSON Irene Mascorro MD LAB_1 Performing Organization Address [facility] Phon e Number [address] [address] [place], [place] [phone] BLOOD CULTURE SITE 2 (04/16/2007 8:00 PM SPINNERET PERSON) Component Value Ref Test Analysis Performed At [facility] [place] Method Time Signature Specimen Blood REGIONS Description Special Venipuncture REGIONS Requests Culture No Growth After REGIONS 6 Days Report Status Final 04/22/2007 REGIONS Specimen Anatomical Location Collection Method Collection Time Received Time (Source) / Laterality / Volume Blood specimen VENIPUNCTURE / 04/16/2007 8:00 04/16/20 07 8:56 (specimen) Unknown PM SPINNERET PERSON PM SPINNERET PERSON Irene Mascorro MD LAB_1 Performing Organization Address [facility] Phon e Number [address] [address] [place], [place] [phone] BLOOD CULTURE SITE 1 (04/16/2007 8:00 PM SPINNERET PERSON) Component Value Ref Test Analysis Performed At [facility] [place] Method Time Signature Specimen Blood REGIONS Description Special Venipuncture REGIONS Requests Culture No Growth After REGIONS 6 Days Report Status Final 04/22/2007 REGIONS Specimen Anatomical Location Collection Method Collection Time Received Time (Source) / Laterality / Volume Blood specimen VENIPUNCTURE / 04/16/2007 8:00 04/16/20 07 8:57 (specimen) Unknown PM SPINNERET PERSON PM SPINNERET PERSON Irene Mascorro MD LAB_1 Performing Organization Address City/State/ZIP Code Phon e Number [address] [address] [place], [place] [phone] CT PELVIS WITHOUT IV CONTRAST (04/16/2007 10:40 AM SPINNERET PERSON) Anatomical Region Laterality Modality Other Specimen (Source) Anatomical Collection Method Collection Time Re ceived Time Location / / Volume Laterality 04/16/2007 10:40 AM SPINNERET PERSON Impressions 04/19/2007 12:07 PM SPINNERET PERSON IMPRESSION: Three Ray cages in the left sacroiliac j oint extra-articular recess. ??No evidence of loosening. ??Co mplete bony fusion is not yet appreciated. Narrative 04/19/2007 12:[address] sacrum, donna sacral joints from L4-acetabulum, [...] RAD CT/RH AP PELVIS (04/15/2007 10:50 AM SPINNERET PERSON) Anatomical Region Laterality Modality Other Specimen (Source) Anatomical Collection Method Collection Time Re ceived Time Location / / Volume Laterality 04/15/2007 10:50 AM SPINNERET PERSON Narrative 04/15/2007 10:50 AM SPINNERET PERSON LEFT SI FUSION IN O.R.15 AT [phone] [address]RS. Zachary Kirkland MD RAD GENERAL DIAGNOSTIC/RH ABO Rh & Antibody Screen (Type & Screen) (04/15/2007 6:50 AM SPINNERET PERSON) Patholo gist Method Time Signature Crossmatch 04/18/2007 REGIONS Expires ABO/RH(D) O POSITIVE REGIONS Antibody NEGATIVE REGIONS Screen Specimen Anatomical Collection Method Collection Time Receive d Time (Source) Location / / Volume Laterality 04/15/2007 6:50 AM 7 6:56 SPINNERET PERSON AM SPINNERET PERSON Zachary Kirkland MD LAB_1 Performing Organization Address City/State/ZIP Code Phon e Number [address] [address] [place], [place] [phone] documented in this encounter Visit Diagnoses Initial Assessments - Rosina Morgan - 04/17/2007 11:33 AM [facility] [place] [facility] Orthopedic ADL Evaluation Patient Name: [...] and safety the following equipment is recommended: State Superintendent Of Schools: patient has Standard shower chair without backrest: patient has Additional Information: The patient had a sacroiliac fusion and is TDWB on the left LE. The patient lives with her and daughters. She states they will be able to assist her at home. The patient was able to complete lower body dressing with a disbursing officer which she used previously at home. Will [...] home MIGUEL Holcomb/Marcos (pager) OT Dept #: [phone] - OT Weekend Pager #: [phone] - [facility] [place] Main #: [phone] NERET PERSON Initial Assessments - Jessica Romero - 04/16/2007 2:07 PM CST [facility] Physical Therapy Evaluation Patient Name: Megan Wong [...] minutes Jessica Romero PT Phone number is [phone] Pager: [phone] NERET PERSON Initial Assessments - Iván Shin - 04/15/2007 1:09 PM CST [facility] Med-Surg, ICU Initial Assessment Note Patient Name: Megan Wong Date of : 1965 General Information Demographics Admitted from: OR to 9E Reason for admission: SI Fusion [facility] admission date/time: 04/15/2007 5:32 AM Actual [...] of age or older 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 [FCI health problems include chronic pulmonary or cardiovascular [...] abnormalities Alex Scale score: Score: 18 If Alxe Score is <18, initiate skin interventions. Musculoskeletal Assessment Pain/Stiffness: Back post op Screening Criteria Has MD been notified of potential rehabilitation or PT/OT needs due to mobility? Yes Pain Pain assessment: Site 1.) Location of pain: back, Chronic, Descriptions: Ache, Intermittant and Pressing, Pain Level:3, Duration: intermittent, Current treatment methods: Custodial Worker dilaudid, Method of expressing pain: Verbal, Desired [...] there Guardianship issues affecting care planning? No Spiritual/Hoahaoism Is the nurse aware, at present, of any needs or issues for which support from the hospital copywriting intern might be helpful to patient and/or family? (e.g. need or desire for spiritual support, difficulty coping, end of life issues, grief/loss, etc.) No. ([facility] makes daily rounds to all druze patients.) Cultural On the Best Care/Best Experience [...] contributed to the completion of this document. NERET PERSON documented in this encounter Administered Medications Inactive Administered Medications - up to 3 most recent administrations Medication Order MAR Action Action Date Dose Rate Site bisacodyl (DULCOLAX) rectal Given 04/18/2007 9:00 AM SPINNERET PERSON 10 mg suppository 10 mg 10 mg, Rectal, DAILY PRN, Constipation, Starting on Sun04/15/07 at 0800, Until Sun04/19/07 at 2053 calcium carb-vit D 500 mg-200 units (OSCAL Given 04/19 2:00 PM SPINNERET PERSON 1 Tablet D) 1 Tab 1 Tablet, Oral, TID, First dose on Sun04/15/07 at 1400, Until Discontinued Given 04/19/2007 8:00 AM SPINNERET PERSON 1 Tablet Given 04/18/2007 8:00 PM SPINNERET PERSON 1 Tablet cefazolin (ANCEF) 1,000 mg in NS 50 mL IV Given 2006 12:00 AM SPINNERET PERSON 1,000 mg Piggyback 1,000 mg (1 g), Intravenous, Administer over 30 Minutes, Q8H, First dose on Sun04/15/07 at 1600, For 2 doses, First dose given pre-opGive if not allergic to PCN or cephalosporins. Given 04/15/2007 4:00 PM SPINNERET PERSON 1,000 mg citric acid/sodium citrate (BICITRA) oral Given 04/15/2007 6:42 AM SPINNERET PERSON 30 mL solution 30 mL 30 mL, Oral, NOW, On Sun04/15/07 at 0642, For 1 dose D5W 0.45NS 20 KCl IV 1,000 mL Started 04/15/2007 9:49 PM SPINNERET PERSON 1,000 mL 125 mL/hr 1,000 mL, Intravenous, at 125 mL/hr, CONTINUOUS, Starting on Sun04/15/07 at 0804 Started 04/15/2007 12:00 PM SPINNERET PERSON 1,000 mL 125 mL/hr docusate (COLACE) capsule 100 mg Given 04/19/2007 8:00 AM SPINNERET PERSON 100 mg 100 mg, Oral, BID, First dose on Sun04/15/07 at 2000, Until Discontinued Given 04/18/2007 8:00 PM SPINNERET PERSON 100 mg Given 04/18/2007 8:00 AM SPINNERET PERSON 100 mg enoxaparin (LOVENOX) injection 40 mg Given 04/19/2007 8:00 AM SPINNERET PERSON 40 mg 40 mg, Subcutaneous, Q24H, First dose on Sun04/16/07 at 0800, Until Discontinued Given 04/18/2007 8:00 AM SPINNERET PERSON 40 mg Given 04/17/2007 8:00 AM SPINNERET PERSON 40 mg famotidine (PEPCID) IV 20 mg Given 04/15/2007 8:00 AM SPINNERET PERSON 20 mg 20 mg, Intravenous, Q12H, First dose on Sun04/15/07 at 0800, Until Discontinued hydrocodone/acetaminophen (VICODIN) 5-500 Given 2006 5:18 PM SPINNERET PERSON 2 Tablets MG 1-2 Tab 1-2 Tablet, Oral, Q4H PRN, Pain, Starting on Sun04/15/07 at 0800, Maximum Daily Acetaminophen dose for patients > 53 k g/day Maximum Daily Acetaminophen dose for patients < 53 k mg/kg/day This product contains 500 mg Acetaminophen per tablet. Given 04/19/2007 7:15 AM SPINNERET PERSON 2 Tablets Given 04/18/2007 8:25 PM SPINNERET PERSON 2 Tablets HYDROmorphone (DILAUDID) injection 0.1-0 .4 mg Given 04/15/2007 2:45 PM SPINNERET PERSON 0.4 mg 0.1-0.4 mg, Intravenous, Q1-2H PRN, Pain, Starting on Sun04/15/07 at 0800, Until Sun04/19/07 at 2053 HYDROmorphone (DILAUDID) PIPE INSULATOR 10 mg in NS Started 04/15/2007 12 :23 PM SPINNERET PERSON mL/hr 50 mL IV infusion* Intravenous, TITRATE, Starting on Sun04/15/07 at 0809, Until Sun04/19/07 at 0832 hydrOXYzine (ATARAX) tablet 25-50 mg Given 04/19/2007 5:17 PM SPINNERET PERSON 50 mg 25-50 mg, Oral, Q4H PRN, Pain, Starting on Sun04/15/07 at 0800, Until Sun04/19/07 at 2053 Given 04/19/2007 7:15 AM SPINNERET PERSON 50 mg Given 04/18/2007 8:25 PM SPINNERET PERSON 50 mg lansoprazole (PREVACID) capsule 30 mg Given 04/19/2007 8:00 AM SPINNERET PERSON 30 mg 30 mg, Oral, DAILY, First dose on Sun04/17/07 at 1528, Until Discontinued Given 04/18/2007 8:00 AM SPINNERET PERSON 30 mg Given 04/17/2007 5:00 PM SPINNERET PERSON 30 mg lidocaine/EPINEphrine 1-1:790035 %, Given 04/15/2007 9:00 AM SPINNERET PERSON 60 mL bupivacaine/EPINEphrine 0.5-1:387151 % at 0 , INTRA-OP, Starting on Sun04/15/07 at 0607, Verify Route and Dose with Surgeon Prior to Administration LR injection 1,000 mL Given 04/15/2007 6:44 AM SPINNERET PERSON 1,000 mL 1,000 mL, Intravenous, at 30 mL/hr, PACU, Starting on Sun04/15/07 at 0618, Continuous magnesium citrate oral solution 296 mL Given 04/18/2007 11:29 AM SPINNERET PERSON 296 mL 296 mL (1 Bottle), Oral, ONCE, On Elda 04/18/07 at 1129, For 1 dose meperidine (DEMEROL) injection 12.5-50 m g Given 04/15/2007 11:50 AM SPINNERET PERSON 25 mg 12.5-50 mg, Intravenous, PACU, Starting on Sun04/15/07 at 1045, Until Sun04/15/07 at 1246, Up to a total dose of no more than 2 mg/kg. Use in PACU only milk of magnesia oral suspension 30 mL Given 04/18/2007 9:00 AM SPINNERET PERSON 30 mL 30 mL, Oral, ONCE PRN, Constipation, Starting on Sun04/17/07 at 2200, Until Sun04/19/07 at 2053, Give dose at 22:00 on post-op day #2 if no BM by 48 hours post-op milk of magnesia oral suspension 30 mL Given 04/18/2007 9:45 PM SPINNERET PERSON 30 mL 30 mL, Oral, ONCE, On Elda 04/18/07 at 2126, For 1 dose MORphine injectable 5 mg Given 04/15/2007 12:12 PM SPINNERET PERSON 5 mg 5 mg, Intravenous, PACU, Starting on Sun04/15/07 at 1150, Until Sun04/15/07 at 1246, May give in incremental doses up to a maximum of 0.15 mg/kg. Use in PACU only Given 04/15/2007 11:52 AM SPINNERET PERSON 5 mg multivitamin (HEXAVITAMIN) 1 Tab Given 04/19/2007 8:00 AM SPINNERET PERSON 1 Tablet 1 Tablet, Oral, DAILY, First dose on Sun04/16/07 at 0800 Given 04/18/2007 8:00 AM SPINNERET PERSON 1 Tablet Given 04/17/2007 8:00 AM SPINNERET PERSON 1 Tablet NS IV 1,000 mL Started 04/17/2007 3:05 AM SPINNERET PERSON 1,000 mL 125 mL/hr 1,000 mL, Intravenous, at 125 mL/hr, CONTINUOUS, Starting on Sun04/16/07 at 1818 Started 04/16/2007 7:00 PM SPINNERET PERSON 1,000 mL 125 mL/hr ondansetron (ZOFRAN) injection 4 mg Given 04/19/2007 2:00 AM SPINNERET PERSON 4 mg 4 mg, Intravenous, Q6H PRN, Nausea, Starting on Sun04/15/07 at 0800 Given 04/16/2007 12:50 PM SPINNERET PERSON 4 mg oxycodone (OXYCONTIN) tablet 20 mg Given 04/19/2007 8:00 AM SPINNERET PERSON 20 mg 20 mg, Oral, BID, First dose on Sun04/16/07 at 2155, DO NOT crush or cut in half. Given 04/18/2007 9:45 PM SPINNERET PERSON 20 mg Given 04/18/2007 8:00 AM SPINNERET PERSON 20 mg phosphate enema (FLEET) enema 118 mL Given 04/19/2007 7:00 AM SPINNERET PERSON 118 mL 118 mL (1 Enema), Rectal, DAILY PRN, Starting on Sun04/15/07 at 0800, Until Sun04/19/07 at 2053, Constipation propoxyphene/acetaminophen (DARVOCET-N Given 04/17/2007 12:00 PM SPINNERET PERSON 1 Tablet 100) 100-650 MG 1 Tab 1 Tablet, Oral, Q4H PRN, Pain, Starting on Sun04/15/07 at 0800, Maximum Daily Acetaminophen dose for patients > 53 k g/day Maximum Daily Acetaminophen dose for patients < 53 k mg/kg/day This product contains 650 mg Acetaminophen per tablet. Given 04/17/2007 6:40 AM SPINNERET PERSON 1 Tablet Given 04/17/2007 12:35 AM SPINNERET PERSON 1 Tablet documented in this encounter Active and Recently Administered Medications Times are shown in SPINNERET PERSON. Scheduled Medication Order 04/17/2007 04/18/2007 04/19/2007 calcium carb-vit D 500 mg-200 units (OSCAL D) 1 Tab (C ANCELED) 0800 (Given - Provider: Iván Shin)1400 (Due)2100 (Given - Provider: Taniya Brewster) 0800 (Given - Provider: Rosalia Schafer)1400 (Given - Provider: Rosalia Schafer)1999 (Given - Provider: Patti Lynch) 0800 (Given - Provider: Rosalia Schafer)1400 (Given - Provider: Rosalia Schafer) 1 Tab, Oral, TID, First dose on 04/15 at 1400, Until Disconti nued docusate (COLACE) capsule 100 mg (CANCELED) 0800 (Give n - Provider: Iván Shin)2099 (Given - Provider: Taniya Brewster) 0800 (Given - Provider: Rosalia Schafer)1999 (Given - Provider: Patti Lynch) 0800 (Given - Provider: Rosalia Schafer) 100 mg, Oral, BID, First dose on 04/15 at 2000, Until Discont inued enoxaparin (LOVENOX) injection 40 mg (CANCELED) 0800 ( Given - Provider: Iván Shin) 0800 (Given - Provider: Rosalia cShafer) 0800 (Given - Provider: Rosalia Schafer) 40 [...] 296 mL (1 Bottle), Oral, ONCE, On Sun04/18/07 at 1129, For 1 dos e milk [...] Taniya Brewster) 0800 (Given - Provider: Rosalia Schafer)2145 (Given - Provider: Patti Lynch) 0800 (Given [...] at 10/18.) 0715 (Given - Provider: Lane Kwok)1718 (Given - Provider: Ant Thomas) 1-2 Tab, Oral, Q4H PRN, Starting 04/15 at 0800, Until Discont inued hydrOXYzine (ATARAX) tablet 25-50 mg (CANCELED) 0200 ( Given - Provider: Christy Pizarro)0640 (Given - Provider: Christy Pizarro)1200 (Given - Provider: Iván Shin)1709 (Given - Provider: Taniya Brewster) 0100 (Given - Provider: Hannah Borrego)2024 (Given - Provider: Patti Lynch - Comment: Rates pain at 10/18.) 0715 (Given - Provider: Lane pierre)171 (Given - Provider: Ant Thomas) 25-50 mg, Oral, Q4H PRN, Starting 04/15 at 0800, Until Discon tinued milk of magnesia oral suspension 30 mL (CANCELED) 2101 (Refused - Provider: Taniya Brewster) 09 (Given - Provider: Rosalia Schafer) 30 mL, Oral, ONCE PRN, Starting 04/17 at 2200, Until Disconti nued ondansetron (ZOFRAN) injection 4 mg (CANCELED) 020 (Given - Provider: Lane Gilliland) 4 mg, IV, Q6H PRN, Starting 04/15 at 0800, Until Discontinued phosphate enema (FLEET) enema 118 mL (CANCELED) 699 (Given - Provider: Lane Gilliland) 118 mL [...] ued documented in this encounter Care Teams Maintenance Leader Relationship Specialty Start Date End Date Jose Colin DO PCP - General 12/24/03 09/17/08 [address] [place] [address] documented as of this encounter
--- OUTSIDE RECORDS SUMMARY | 2022-01-17 22:23 | XMS_ITS | Encounter Summary ---
:1965 Author Organization [facility] Address [address] [place] [address] Care Team Providers Name Role Phone Jose Stack DO Primary Care Provider [phone] Reason for Visit Reason Onset Date Comments Refill 03/28/2007 Encounter Details Date Type Department Care Team Description 03/28/2007 Refill [facility] Jose Stack, Refill [address] [facility] [address] [place] [address] [place], [place] [phone] (Wo rk) Social History Tobacco Use Types Packs/Day Years Used Date Smoking Tobacco: Never Alcohol Use Standard Drinks/Week Comments Yes 0 (1 standard drink = 0.6 oz pure alcoho l) rarely Sex Assigned at Date Recorded Not on file documented as of this encounter Nursing Notes Esmer Tamez I - 03/28/2007 10:18 AM CDTApproved Prescriptions: Disp Refills OMEPRAZOLE (PRILOSEC) 20MG ORAL CAPS 30 0 Sig: One by mouth every day Authorizing Provider: JOSE STACK Ordering User: ESMER TAMEZ I Blank [place] 03/28/2007 10:11 AM CDT Last fill on for a quantity of 30 documented in this encounter Plan of Treatment Not on filedocumented as of this encounter Visit Diagnoses Diagnosis GERD (gastroesophageal reflux disease) Esophageal reflux documented in this encounter Care Teams Oil And Gas Recruiter Relationship Specialty Start Date End Date Jose Stack DO PCP - General 12/24/03 09/17/08 [address] [place] [address] documented as of this encounter
--- OUTSIDE RECORDS SUMMARY | 2022-01-17 22:23 | XMS_ITS | Encounter Summary ---
:1965 Author Organization [facility] Address [address] [address] Care Team Providers Name Role Phone Jose Colin DO Primary Care Provider [phone] Reason for Visit Reason Onset Date Comments FOLLOW-UP,[facility] 04/22/2007 Encounter Details Date Type Department Care Team Description 04/22/2007 Telephone [facility] C91 Rosalia Schafer, FOLLOW-UP,[address] [phone] Social History Tobacco Use Types Packs/Day Years Used Date Smoking Tobacco: Never Alcohol Use Standard Drinks/Week Comments Yes 0 (1 standard drink = 0.6 oz pure alcoho l) rarely Sex Assigned at Date Recorded Not on file documented as of this encounter Nursing Notes Rosalia Schafer - 04/22/2007 11:05 AM CST Pt had concerns about noisey soboba and 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
--- OUTSIDE RECORDS SUMMARY | 2022-01-17 22:23 | XMS_ITS | Encounter Summary ---
:1965 Author Organization [facility] Address [address] [address] Care Team Providers Name Role Phone Jose Colin DO Primary Care Provider [phone] Encounter Details Date Type Department Care Team Description 05/03/2007 Orders Only [facility] DVT (Deep Venous [address] Thrombosis) [place], [place] [phone] Social History Tobacco Use Types Packs/Day Years Used Date Smoking Tobacco: Never Alcohol Use Standard Drinks/Week Comments Yes 0 (1 standard drink = 0.6 oz pure alcoho l) rarely Sex Assigned at Date Recorded Not on file documented as of this encounter Progress Notes Jose Colin - 05/27/2007 12:47 PM STAIN WIPER Quick Note: ok to send letter Jose Colin DO 12:47 PM 05/27/2007 N WIPER documented in this encounter Plan of Treatment Not on filedocumented as of this encounter Procedures Procedure Name Priority Date/Time Associated Diagnosis Comme nts COMPLETE BLOOD Routine 05/03/2007 8:55 AM DVT (Deep Venous Res ults for this COUNT-W/DIFF STAIN WIPER Thrombosis) procedure are i n the results section. INR/PROTIME Same Day 05/03/2007 8:55 AM DVT (Deep Venous Resul ts for this STAIN WIPER Thrombosis) procedure are i n the results section. documented in this encounter Results (ABNORMAL) HEMOGRAM/PLTS/DIFF (05/03/2007 8:55 AM STAIN WIPER) [facility] Method Time Signature WBC 6.9 4.0 - 11.0 [facility] k/ul RBC 4.27 4.0 - 5.2 [facility] M/ul Hemoglobin 13.4 12.0 - [facility] 16.0 g/dl HCT 39.3 36.0 - [facility] 46.0 % MCV 92.0 80 - 100 [facility] fl MCH 31.4 26 - 34 pg [facility] MCHC 34.1 32 - 36 % [facility] RDW 12.6 11.5 - [facility] 14.5 % Platelets 419 150 - 450 [facility] k/ul PMN/Band 40 (L) 43 - 72 % [facility] Lymph 49 (H) 17 - 43 % [facility] [place] 6 4 - 12 % [facility] Eos 3 0 - 8 % [facility] Baso 1 0 - 1 % [facility] Neutrophil 2.8 1.8 - 7.7 [facility] Absolute k/ul Lymph Absolute 3.4 1.0 - 4.8 [facility] k/ul [place] Absolute 0.4 0.1 - 0.7 [facility] k/ul Eos Absolute 0.2 0.0 - 0.5 [facility] k/ul Baso Absolute 0.1 0.0 - 0.2 [facility] k/ul Specimen Anatomical Collection Method Collection Time Receive d Time (Source) Location / / Volume Laterality 05/03/2007 8:55 AM 7 8:56 STAIN WIPER AM STAIN WIPER Jose Colin DO LAB_1 Performing Organization Address City/[facility]/ZIP Code Phon e Number [facility] [phone] [facility] [address] [place] [phone] (ABNORMAL) INR/PROTIME (05/03/2007 8:55 AM STAIN WIPER) P athologist Signature Protime 18.5 (H) 12.0 - [facility] 14.5 sec Coumadin Yes [facility] INR 1.5 [facility] Specimen Anatomical Collection Method Collection Time Receive d Time (Source) Location / / Volume Laterality 05/03/2007 8:55 AM 7 8:56 STAIN WIPER AM STAIN WIPER Jose Colin DO LAB_1 Performing Organization Address City/[facility]/ZIP Code Phon e Number [facility] [phone] [place] [id number] [phone] documented in this encounter Visit Diagnoses Diagnosis DVT (deep venous thrombosis) (HR) Acute venous embolism and thrombosis of unspecified deep vessels of lower extremity documented in this encounter Care Teams Polishing Machine Tender Relationship Specialty Start Date End Date Jose Colin DO PCP - General 12/24/03 09/17/[address] [place] [place] [address] documented as of this encounter
--- OUTSIDE RECORDS SUMMARY | 2022-01-17 22:23 | XMS_ITS | Encounter Summary ---
:1965 Author Organization [facility] Address [address] [address] Care Team Providers Name Role Phone DixieJose Jerrell DO Primary Care Provider [phone] Reason for Referral Specialty Diagnoses / Procedures Referred By Contact Refer red To Contact Shyla Perdomo, AP RN, PACKAGE DYEING MACHINE OPERATOR [address] [place] [address] Referral ID Status Reason Start Date Expiration Date Visits Requ ested Visits Authorized FACTURING ENGINEER ASSEMBLY Reason for Visit Reason Comments LEG PAIN Left Calf Encounter Details Date Type Department Care Team Description 04/30/2007 Office Visit [facility] ([facility] Internal Shyla Perdomo, Calf P ain (Primary Dx) Medicine INSPECTOR FLOOR, PACKAGE DYEING MACHINE OPERATOR [address] [facility] [address] [place] [address] [place], [place] [phone] Social History Tobacco Use Types Packs/Day Years Used Date Smoking Tobacco: Never Alcohol Use Standard Drinks/Week Comments Yes 0 (1 standard drink = 0.6 oz pure alcoho l) rarely Sex Assigned at Date Recorded Not on file documented as of this encounter Last Filed Vital Signs Vital Sign Reading Time Taken Comments Blood Pressure 118/60 04/30/2007 3:43 PM MANUFACTURING ENGINEER ASSEMBLY Pulse 76 04/30/2007 3:43 PM MANUFACTURING ENGINEER ASSEMBLY Temperature 36.2 ??C (97.2 ??F) 04/30/2007 3:43 PM MANUFACTURING ENGINEER ASSEMBLY Respiratory Rate 24 04/30/2007 3:43 PM MANUFACTURING ENGINEER ASSEMBLY Oxygen Saturation - - Inhaled Oxygen Concentration - - Weight - - Height - - Body Mass Index - - documented in this encounter Progress Notes Shyla Perdomo - 04/30/2007 4:52 PM CST S; Pt here for eval of left calf pain since yesterday. Feels like cramp in leg. Extends from top of calf down to heel. Worse with flexion of foot. No redness, warmth or swelling. Pt is non-smoker. Pt recently had SI joint fusion for Sx of left low back and buttock pain on 04-15-07. No prior Hx of bloodclots. Pt is non- wt bearing on left leg for 6 weeks, using walker. Is on asa daily. O: Vs as above. The calf is normal temp to touch. No r/w/s. In fact the left calf is a bit smaller than the right (pt feels there has been some muscle atrophy d/t to the chronic pain). Good pulses, CMSto feet intact. There is some tenderness to calf with flexion. Also tenderness to palp of calf. A: Calf Pain P: Ultrasound to r/o dvt. If neg pt was enc to stretch calf and do calf pumps to exercise the musclewhile remaining non-wt bearing. Can use tyl for pain as well as heat. If ultrasound is positive willneed DVT treatment. Shyla Perdomo NP 4:52 PM 04/30/2007 This chart has been electronically signed. FACTURING ENGINEER ASSEMBLY documented in this encounter Plan of Treatment Not on filedocumented as of this encounter Visit Diagnoses Diagnosis Calf pain - Primary Pain in limb documented in this encounter Care Teams Air Surveillance Operator Relationship Specialty Start Date End Date Jose Colin DO PCP - General 12/24/03 09/17/08 [address] [place] [address] documented as of this encounter
--- OUTSIDE RECORDS SUMMARY | 2022-01-17 22:23 | XMS_ITS | Encounter Summary ---
:1965 Author Organization [facility] Address [address] [place] [address] Care Team Providers Name Role Phone Jose Colin DO Primary Care Provider Reason for Visit Reason Onset Date Comments QUESTIONS, GENERAL 02/27/2007 Encounter Details Date Type Department Care Team Description 02/27/2007 Telephone [facility] Internal Med mikaylane Jose Colin QUESTIONS, GENERAL [address] [facility], [place] [address] [address] [facility] [phone] [place] [address] (Wo rk) Social History Tobacco Use Types Packs/Day Years Used Date Smoking Tobacco: Never Alcohol Use Standard Drinks/Week Comments Yes 0 (1 standard drink = 0.6 oz pure alcoho l) rarely Sex Assigned at Date Recorded Not on file documented as of this encounter Nursing Notes Hanna Shin - 03/05/2007 9:37 AM CDT Pt has enough meds to last until mid March & hillary call back to order this med in the future. Thea Bella - 03/04/2007 10:23 AM CDT Left message to call back. Jose Colin - 03/04/2007 10:06 AM CDT Doesn't nned to be seen for this med - omeprazole Please find out where to send hernandez Colin DO 10:06 AM 03/04/2007 Thea Bella - 02/27/2007 11:57 AM CDT Patients last clinic visit was in Feb 14. Please review patients record and recommend. Patients rx was filled for one month on 02/23/07. Patient wondering whether she really has to see the doctor yearly for her refills of this med? YanNestor - 02/27/2007 11:23 AM CDT Patient would like to speak to her provider's nurse. Name of patient's provider: Dr. Colin Summarize the patient's question or concern: Patient states she is running out of her medication andhas gone to the pharmacy. Pharmacy told her she needs her Dr's authorization before getting more medication. Patient requests to speak with PCP's nurse about getting more medication. Patient can be reached at work until 3:30pm ([phone]). Please call as soon as you can. Thank-you! Sincerely, Nestor Mitchell Her documented in this encounter Plan of Treatment Not on filedocumented as of this encounter Visit Diagnoses Diagnosis GERD (gastroesophageal reflux disease) - Primary Esophageal reflux documented in this encounter Care Teams Perl Programmer Relationship Specialty Start Date End Date Jose Colin DO PCP - General 12/24/03 09/17/08 [address] [place] [address] documented as of this encounter
--- OUTSIDE RECORDS SUMMARY | 2022-01-17 22:23 | XMS_ITS | Encounter Summary ---
:1965 Author Organization [facility] Address [address] [place] [address] Care Team Providers Name Role Phone Jose Colin DO Primary Care Provider [phone] Reason for Visit Reason Comments EXAM,PRE-OP @ [facility] 04[facility] Tobi lehman S1 joint Fusion Encounter Details Date Type Department Care Team Description 04/10/2007 Office Visit [facility] Dusty Flores Preoperati ve Clement Huang MD Examination (Primary [address] [facility] Dx) [place] [address] PRACTICE [phone] [place] [address] Social History Tobacco Use Types Packs/Day Years Used Date Smoking Tobacco: Never Alcohol Use Standard Drinks/Week Comments Yes 0 (1 standard drink = 0.6 oz pure alcoho l) rarely Sex Assigned at Date Recorded Not on file documented as of this encounter Last Filed Vital Signs Vital Sign Reading Time Taken Comments Blood Pressure 118/68 04/10/2007 4:11 PM CDT Pulse 94 04/10/2007 4:11 PM CDT Temperature 36.7 ??C (98 ??F) 04/10/2007 4:11 PM CDT Respiratory Rate 20 04/10/2007 4:11 PM CDT Oxygen Saturation - - Inhaled Oxygen Concentration - - Weight 89.4 kg (197 lb) 04/10/2007 4:11 PM CDT Height 157.5 cm (5' 2) 04/10/2007 4:11 PM CDT Body Mass Index 36.03 04/10/2007 4:11 PM CDT documented in this encounter Progress Notes Dusty Flores - 04/10/2007 4:50 PM CDT Megan Choi, medical record [id number], is a 42 yr year old female who is here for presurgical assessment. She is scheduled for surgery at [facility] on 04/15/[address] Kirkland. HPI: Low back pain x years. Underwent L5/S1 fusion surgery last year. Left sacral and buttock pain continues. Now found to have Sacroiliac Joint on left to be problematic. Her primary physician is Jose Colin DO. Procedure: Left SacroIliac fusion Allergies: Erythromycin Habits: History Substance Use Topics ??? Tobacco Use: Never ??? Alcohol Use: Yes rarely Past Medical History Diagnosis Date ??? ESOPHAGEAL [...] primary 07-13-05 rt ??? Other - procedures 1985 cryo to uterine cervix Patient Active Problem List Diagnoses Code ??? DERMATITIS NOS 692.9 ??? CERVICALGIA 723.1 ??? PLANTAR NERVE LESION 355.6 ??? EXCESSIVE MENSTRUATION 626.2 ??? ENDOMETRIAL POLYP 621.0 Current outpatient prescriptions Medication Sig ??? OMEPRAZOLE (PRILOSEC) 20MG ORAL CAPS One by mouth every day PRE-OP QUESTIONS: Tightening or pressure in chest with activity: no. Swelling of feet or ankles at times: no. Wakes at night with shortness of breath : no. Difficulty sleeping flat at night: no. Troubled by shortness of breath when: Walking on the level: no. Climbing a flight of stairs: no. Sleeping at night: no. Get pains in the calves of the legs when walking: no. Chest ever sound wheezy or whistling: no. Cough, runny nose, or cold symptoms: Now: no In the last two weeks: no Have a chronic cough: no. Have you or any relatives ever had a problem with bleeding: no. Taken any aspirin (or products containing aspirin) in the last two weeks: no. Problem with anemia or been told to take iron pills: no. Have you or any relatives ever had a problem with anesthesia: no. Do you have active Tuberculosis? no Additional Questions: Any chance that you could be ? no LMP ended Mar PHYSICAL EXAMINATION The patient appears healthy,in no acute distress,mobile without assistance BP 118/68 Pulse 94 Temp (Src) 98 ??F (36.7 ??C) (Oral) Resp 20 Ht 5' 2 (1.575 m) Wt 197 lb (89.36 kg) Neck: supple,no lymphadenopathy,no thyromegaly,full range of motion Heart: regular rate and rhythm, normal S1 and S2 without murmur or click, Carotid bruit absent. Lungs: clear to auscultation, no wheezes, no crackles Abdomen: Abdomen soft, non-tender. BS normal. No masses, organomegaly Edema: no EKG: normal sinus rhythm, unchanged from prior EKG LAB: Pending Hemogram. 5pm - Result , all parameters Normal, Hgb 13.4 Assessment: No contraindiction to surgery. No major medical issues for planned procedure. Patient is advised to avoid aspirin for 7 days prior to surgery and avoid ibuprofen products for 5 days prior to surgery Dusty Flores MD Lennox Manrique - 04/10/2007 4:16 PM CDT PRE-OP QUESTIONS: Tightening or pressure in chest with activity: no. Swelling of feet or ankles at times: no. Wakes at night with shortness of breath : no. Difficulty sleeping flat at night: no. Troubled by shortness of breath when: Walking on the level: no. Climbing a flight of stairs: no. Sleeping at night: no. Get pains in the calves of the legs when walking: no. Chest ever sound wheezy or whistling: no. Cough, runny nose, or cold symptoms: Now: no In the last two weeks: no Have a chronic cough: no. Have you or any relatives ever had a problem with bleeding: no. Taken any aspirin (or products containing aspirin) in the last two weeks: no. Problem with anemia or been told to take iron pills: no. Have you or any relatives ever had a problem with anesthesia: no. Do you have active Tuberculosis? no Additional Questions: NONE documented in this encounter Plan of Treatment Not on filedocumented as of this encounter Procedures Procedure Name Priority Date/Time Associated Diagnosis Comme nts ECG 12-LEAD ROUTINE Waiting 04/10/2007 4:21 PM Preoperative Re sults for this CDT Examination procedure are i n the results section. COMPLETE BLOOD Waiting 04/10/2007 4:01 PM Preoperative Results for this COUNT-NO DIFF CDT Examination procedure are in the results section. documented in this encounter Results ECG 12-LEAD ROUTINE (04/10/2007 4:21 PM CDT) P athologist Signature Ventricular Rate 83 BPM [facility] Atrial Rate 83 BPM [facility] P-R Interval 172 ms [facility] QRS Duration 96 ms [facility] QT 366 ms [facility] QTc 430 ms [facility] P [place] 44 degrees [facility] R [place] -18 degrees [facility] T [place] 43 degrees [facility] URL Link [facility] Specimen (Source) Anatomical Collection Method Collection Time Re ceived Time Location / / Volume Laterality 04/10/2007 4:21 PM CDT Narrative [facility] - 04/11/2007 8:07 AM CDT Sinus rhythm Normal ECG When compared with ECG of 31-OCT-2005 16 :23, No significant change was found Dusty Flores MD EKG Performing Organization Address City/State/ZIP Code Phon e Number [facility] [address] [place] [address] [facility] [address] [place] [address] HEMOGRAM/PLTS (04/10/2007 4:01 PM CDT) P athologist Signature WBC 10.0 4.0 - 11.0 [facility] k/ul RBC 4.46 4.0 - 5.2 [facility] M/ul Hemoglobin 13.7 12.0 - 16.0 [facility] g/dl HCT 40.1 36.0 - 46.0 [facility] % MCV 90.0 80 - 100 fl [facility] MCH 30.8 26 - 34 pg [facility] MCHC 34.2 32 - 36 % [facility] RDW 12.6 11.5 - 14.5 [facility] % Platelets 244 150 - 450 [facility] k/ul Specimen Anatomical Collection Method Collection Time Receive d Time (Source) Location / / Volume Laterality 04/10/2007 4:01 PM 7 4:02 CDT PM CDT Dusty Flores MD LAB_1 Performing Organization Address City/State/[facility] Code Phon e Number [facility] [phone] [facility] [address] [address] documented in this encounter Visit Diagnoses Diagnosis Preoperative examination - Primary Preoperative examination, unspecified documented in this encounter Care Teams Ops Manager Relationship Specialty Start Date End Date Jose Colin DO PCP - General 12/24/03 09/17/08 [address] [place] [address] documented as of this encounter
--- OUTSIDE RECORDS SUMMARY | 2022-01-17 22:23 | XMS_ITS | Encounter Summary ---
:1965 Author Organization [facility] Address [address] [place] [address] Care Team Providers Name Role Phone Jose Colin DO Primary Care Provider [phone] Encounter Details Date Type Department Care Team Description 05/07/2007 Orders Only [facility] DVT (Deep Venous [address] Thrombosis) [place], [place] [id number] Social History Tobacco Use Types Packs/Day Years [...] Associated Diagnosis Comme nts INR/PROTIME Same Day 05/07/2007 8:11 AM DVT (Deep Venous Resul ts for this WELDER FITTER APPRENTICE Thrombosis) procedure are i n the results section . documented in this encounter Results (ABNORMAL) INR/PROTIME (05/07/2007 8:11 AM WELDER FITTER APPRENTICE) P athologist Signature Protime 23.8 (H) 12.0 - [facility] 14.5 sec Coumadin Yes [facility] 2.1 [facility] Specimen Anatomical Collection Method Collection Time Receive d Time (Source) Location / / Volume Laterality 05/07/2007 8:11 AM 7 8:12 WELDER FITTER APPRENTICE AM WELDER FITTER APPRENTICE Jose Colin DO LAB_1 Performing Organization Address City/State/ZIP Code Phon e Number [facility] [phone] [facility] [address] [address] documented in this encounter Visit Diagnoses Diagnosis DVT (deep venous thrombosis) ([facility]) Acute venous embolism and thrombosis of unspecified deep vessels of lower extremity documented in this encounter Care Teams Agricultural Economics Professor Relationship Specialty Start Date End Date Jose Colin DO PCP - General 12/24/03 09/17/08 [address] [place] [address] documented as of this encounter
--- OUTSIDE RECORDS SUMMARY | 2022-01-17 22:23 | XMS_ITS | Encounter Summary ---
:1965 Author Organization [facility] Address [address], [place] [address] Care Team Providers Name Role Phone Jose Colin DO Primary Care Provider [phone] Encounter Details Date Type Department Care Team Description 05/01/2007 Anticoagulation [facility] Internal Thea Bella, DVT (De ep Venous Medicine RN Thrombosis) (Primary [address] [facility] HP [facility] Dx) [place] [address] CLINIC [phone] [address] [place] [address] Social History Tobacco Use Types Packs/Day Years Used Date Smoking Tobacco: Never Alcohol Use Standard Drinks/Week Comments Yes 0 (1 standard drink = 0.6 oz pure alcoho l) rarely Sex Assigned at Date Recorded Not on file documented as of this encounter Plan of Treatment Not on filedocumented as of this encounter Visit Diagnoses Diagnosis DVT (deep venous thrombosis) ([facility]) - Argelia shelly Acute venous embolism and thrombosis of unspecified deep vessels of lower extremity documented in this encounter Care Teams Melt House Drag Operator Relationship Specialty Start Date End Date Jose Colin DO PCP - General 12/24/03 09/17/08 [address] [place] [address] documented as of this encounter
--- OUTSIDE RECORDS SUMMARY | 2022-01-17 22:23 | XMS_ITS | Encounter Summary ---
:1965 Author Organization [facility] Address [address] [address] Care Team Providers Name Role Phone Jose Colin DO Primary Care Provider [phone] Encounter Details Date Type Department Care Team Description 05/10/2007 [facility] Internal Med Wilda Burton RN [address] [place] [address] [address] [phone] [place], [place] [address] Social History Tobacco Use Types Packs/Day Years Used Date Smoking Tobacco: Never Alcohol Use Standard Drinks/Week Comments Yes 0 (1 standard drink = 0.6 oz pure alcoho l) rarely Sex Assigned at Date Recorded Not on file documented as of this encounter Progress Notes Wilda Anand - 05/10/2007 3:37 PM CST See Anticoagulation Flowsheet for details. Wilda Burch RN ESIST documented in this encounter Plan of Treatment Not on filedocumented as of this encounter Visit Diagnoses Not on filedocumented in this encounter Care Teams Icu Clerk Relationship Specialty Start Date End Date Jose Colin, PCP - General 12/24/03 09/17/08 [address] [facility] [address] documented as of this encounter
--- OUTSIDE RECORDS SUMMARY | 2022-01-17 22:23 | XMS_ITS | Encounter Summary ---
:1965 Author Organization [facility] Address [address] [place] [address] Care Team Providers Name Role Phone Jose Colin DO Primary Care Provider [phone] Reason for Visit Reason Comments Suture/Staple Removal from back, incesion to abd w ith no visable sutures, no signs of infections. Encounter Details Date Type Department Care Team Description 03/01/2006 Office Visit [facility] Juanito Panda, Spinal Fusion (Primary Medicine MD Dx) [address] [place] [address] Social History Tobacco Use Types Packs/Day Years Used Date Smoking Tobacco: Never Alcohol Use Standard Drinks/Week Comments Yes 0 (1 standard drink = 0.6 oz pure alcoho l) rarely Sex Assigned at Date Recorded Not on file documented as of this encounter Last Filed Vital Signs Vital Sign Reading Time Taken Comments Blood Pressure 100/60 03/01/2006 4:20 PM CDT Pulse 68 03/01/2006 4:20 PM CDT Temperature 36.7 ??C (98.1 ??F) 03/01/2006 4:20 PM CDT Respiratory Rate - - Oxygen Saturation - - Inhaled Oxygen Concentration - - Weight 86.6 kg (191 lb) 03/01/2006 4:20 PM CDT Height - - Body Mass Index 33.83 02/13/2006 4:00 PM CDT documented in this encounter Progress Notes 03/01/2006 4:20 PM CDT This office note has been dictated. documented in this encounter Consult Notes Juanito Panda - 03/01/2006 12:00 AM CDTSUBJECTIVE: This 40-year-old, white female is followed by Dr. Colin. Patient recently underwent an AP fusion of L5-S1 at [facility] on 02/19/[address] Kirkland. For complete details, please refer to the preop examination dated 02/13/2006. The patient has had some postoperative pain but no other concerns. She has had incisions in both lumbar to intergluteal area and an anterior incision in the lower abdomen. REVIEW OF SYSTEMS: Patient has had a prior spinal fusion of the neck and a ganglion cyst surgery. REVIEW OF SYSTEMS: The patient has not noted any temperatures. She denies skin redness or drainage from the incisions. OBJECTIVE: Blood pressure 100/60, pulse 68, temperature 98.1, weight 191 pounds. She is an obese woman in no distress. The abdomen shows a midline incision below the umbilicus to the pubic area. This appears to be healing normally and apparently had been Steri-stripped. There are no observable external incisions. In the lumbar area, there is a mattress suture present. The area was prepped with alcohol and removed with sterile forceps and scissors. There was no bleeding or evidence of wound separation. ASSESSMENT: Follow-up AP lumbar fusion. PLAN: Patient has a follow-up appointment with her surgeon. At this time, she appears to be progressing in reasonable fashion. P cc: documented in this encounter Plan of Treatment Not on filedocumented as of this encounter Visit Diagnoses Diagnosis Spinal fusion - Primary Arthrodesis status documented in this encounter Care Teams Intake Specialist Relationship Specialty Start Date End Date Jose Colin DO PCP - General 12/24/03 09/17/08 [address] [place] [address] documented as of this encounter
--- OUTSIDE RECORDS SUMMARY | 2022-01-17 22:23 | XMS_ITS | Encounter Summary ---
:1965 Author Organization [facility] Address [address] [place] [address] Care Team Providers Name Role Phone MoJose medina Jerrell BOOGIE Primary Care Provider [phone] Reason for Visit Reason Onset Date Comments DVT(DEEP VEIN THROMBOSIS) 04/30/2007 Encounter Details Date Type Department Care Team Description 04/30/2007 Telephone Careline Celena Wells, DVT(DEEP VEIN [address] RN THROMBOSIS) [place], [place] [address] [phone] [place] [address] Social History Tobacco Use Types Packs/Day Years Used Date Smoking Tobacco: Never Alcohol Use Standard Drinks/Week Comments Yes 0 (1 standard drink = 0.6 oz pure alcoho l) rarely Sex Assigned at Date Recorded Not on file documented as of this encounter Nursing Notes Celena Wells - 04/30/2007 7:00 PM CST Shyla Perdomo TOBACCO WEIGHER called [facility] to let [facility] know pt has a DVT as [facility]. She cannot remember pt's name and gave [facility] nurse number to call at ultrasound to get pt name as pt is still there waiting for further direction. Pt needs lovenox started but Aleyda Perdomo gopingout of phone service shortly. She wondered if pt can be seen at [facility] to get shots started. Called Lead Rn Celena Alejandro at [facility] and she stated pt can be seen at any [facility] and if Rn there, pt can get shot from Rn if [facility] Dr orders it and then will need to f/u in regular clinic in am to get pt teaching on thelovenox shots and then further f/u. PT can be seen at [facility] but will need to see Dr as no Rn there. Dr would decide what dose lovenox to order for pt and how many to order and then pt can get a shot but then to f/u in clinic tomorrow. Called Alix at [facility] and she gavept name and careline nurse spoke with pt that she had DVT to left leg per Shyla de paz. Stated pt could be seen at [facility] or [facility] or [facility] and be seen by Dr to get orders for the lovenox shot and pr escription if needed and then needs to f/u in clinic in am for further pt teaching. Pt stated she was given pt instruction for lovenox while in the hospital earlier this month but she did not need to start the lovenox at that time so she does know how to give self a shot. Pt stated she would like to be seen at [facility] as it is only 10 min from her. Called Rissa at [facility] to give number for them toreach radiologist for confirmation if needed and to let them know pt would be coming in for lovenox shot. She stated nurses are busy. Did not get to give radiology number to nurses. She hung up. Cb from [facility] and they stated to speak with Dr Choi and did not speak with Dr Choi as Dr did not come to the phone. They thought Dr functional tester typewriters for clinic should have been consulted about matter. They maysend her to Er was stated. Relayed information that pt was enroute but she did know how to give herself shots but she would need Dr orders to get medication started for DVT per protocol. CENTER SUPERVISOR documented in this encounter Plan of Treatment Not on filedocumented as of this encounter Visit Diagnoses Not on filedocumented in this encounter Care Teams Plastic Eye Technician Relationship Specialty Start Date End Date Jose Colin DO PCP - General 12/24/03 09/17/[address] [place] [id number] documented as of this encounter
--- OUTSIDE RECORDS SUMMARY | 2022-01-17 22:23 | XMS_ITS | Encounter Summary ---
:1965 Author Organization [facility] Address [address], [place] [address] Care Team Providers Name Role Phone Jose Colin DO Primary Care Provider [phone] Encounter Details Date Type Department Care Team Description 05/06/2007 [facility] Internal Med Wilda Burton RN [address] [place] [address] [address] [phone] [place], [place] [address] Social History Tobacco Use Types Packs/Day Years Used Date Smoking Tobacco: Never Alcohol Use Standard Drinks/Week Comments Yes 0 (1 standard drink = 0.6 oz pure alcoho l) rarely Sex Assigned at Date Recorded Not on file documented as of this encounter Progress Notes Wilda Anand - 05/06/2007 3:53 PM CST See Anticoagulation Flowsheet for details. Wilda Burch RN T RAIL OPERATOR documented in this encounter Plan of Treatment Not on filedocumented as of this encounter Visit Diagnoses Not on filedocumented in this encounter Care Teams Record Maker Relationship Specialty Start Date End Date Jose Colin, PCP - General 12/24/03 09/17/08 [address] [facility] [address] documented as of this encounter
--- OUTSIDE RECORDS SUMMARY | 2022-01-17 22:23 | XMS_ITS | Encounter Summary ---
:1965 [facility] Address [address] [place] [address] Care Team Providers Name Role Phone Jose Colin DO Primary Care Provider [phone] Encounter Details Date Type Department Care Team Description 05/10/2007 Orders Only [facility] DVT (Deep Venous [address] Thrombosis) [place], [place] [id number] Social History Tobacco Use Types Packs/Day Years [...] Associated Diagnosis Comme nts INR/PROTIME Same Day 05/10/2007 8:05 AM DVT (Deep Venous Resul ts for this PHOTOGRAPHIC EQUIPMENT MECHANIC Thrombosis) procedure are i n the results section . documented in this encounter Results (ABNORMAL) INR/PROTIME (05/10/2007 8:05 AM PHOTOGRAPHIC EQUIPMENT MECHANIC) P athologist Signature Protime 24.7 (H) 12.0 - [facility] 14.5 sec Coumadin Yes [facility] INR 2.2 [facility] Specimen Anatomical Collection Method Collection Time Receive d Time (Source) Location / / Volume Laterality 05/10/2007 8:05 AM 7 8:07 PHOTOGRAPHIC EQUIPMENT MECHANIC AM PHOTOGRAPHIC EQUIPMENT MECHANIC Jose Colin DO LAB_1 Performing Organization Address City/State/ZIP Code Phon e Number [facility] [phone] [facility] [address] [address] documented in this encounter Visit Diagnoses Diagnosis DVT (deep venous thrombosis) ([facility]) Acute venous embolism and thrombosis of unspecified deep vessels of lower extremity documented in this encounter Care Teams Marine Firer Relationship Specialty Start Date End Date Jose Colin DO PCP - General 12/24/03 09/17/08 [address] [place] [address] documented as of this encounter
--- OUTSIDE RECORDS SUMMARY | 2022-01-17 22:23 | XMS_ITS | Encounter Summary ---
:1965 Author Organization [facility] Address [address] [place] [address] Care Team Providers Name Role Phone Dixie Jose Jerrell DO Primary Care Provider [phone] Reason for Visit Reason Comments DVT(DEEP VEIN THROMBOSIS) left Encounter Details Date Type Department Care Team Description 04/30/2007 [facility] [address] [facility] DVT (Deep Venous [address] Thrombosis) (Primary Dx) [place], [place] [id number] Social History Tobacco Use Types Packs/Day Years Used Date Smoking Tobacco: Never Alcohol Use Standard Drinks/Week Comments Yes 0 (1 standard drink = 0.6 oz pure alcoho l) rarely Sex Assigned at Date Recorded Not on file documented as of this encounter Last Filed Vital Signs Vital Sign Reading Time Taken Comments Blood Pressure 120/76 04/30/2007 7:19 PM HAND DECORATOR Pulse 80 04/30/2007 7:19 PM HAND DECORATOR Temperature 36.7 ??C (98 ??F) 04/30/2007 7:19 PM HAND DECORATOR Respiratory Rate 16 04/30/2007 7:19 PM HAND DECORATOR Oxygen Saturation - - Inhaled Oxygen Concentration - - Weight - - Height - - Body Mass Index - - documented in this encounter Patient Instructions Patient Qylpxsivxkbm66/20/2007 7:46 PM HAND DECORATOR Lovenox (Heparin) 90mg every 12 hours until told to stop Warfarin 5mg a day 04/30, 05/01, 05/02 on 05/03 check with nurse for dose INR (lab test) 05/03 AM Goal for INR 2-3 DECORATOR documented in this encounter Progress Notes Chirag Braxton - 04/30/2007 7:35 PM CST This office note has been dictated. Chirag Braxton MD DECORATOR Chirag Braxton - 04/30/2007 12:00 AM HAND DECORATOR Chief complaint: I have a vein clot in my leg. S: This is a 42 -year-old woman in good general health, who underwent an SI joint fusion on 04/15/07. She is on Oxycontin, Prilosec, and aspirin and has an ALLERGY TO ERYTHROMYCIN. She had some left leg pain, for which she was seen earlier today and referred [facility]. At 6:30 p.m. today she had a left leg ultrasound, which apparently reportedly showed a DVT. She has not had these before. She had had heparin prophylaxis while in the hospital and had self-administered that, and is comfortable with it. She has had no chest pain, or shortness of breath, and minimal leg swelling.O: Blood pressure is 120/76. Patient's weight by her estimation is 195 to 200 pounds. Temperature is 98. Pulse 80. Respirations 16. The left leg has trace edema.A: DVT, left leg. P: The patient will be started on Lovenox, 90 milligrams every 12 hours, until INR reaches 2 to 3. She is also started on Warfarin, 5 milligrams a day, for the next three days, and an INR is prescheduled for the 4th day. She is told that she will then be told by her primary physician's nurse on future doses of the Warfarin and when she can discontinue the heparin. Patient self-administered her first dose of Lovenox in the clinic. P cc: DECORATOR documented in this encounter Nursing Notes 04/30/2007 6:50 PM CST >> Sudha Nicolas LPN SunApr 30, 2007 8:11 PM Witness pt administering Lovenox injection according to ' instructions. Pt administered 90mgSQ abdomen without difficulty, good technique. Sudha Nicolas LPN >> MONSE Russ Apr 30, 2007 7:20 PM disabled pt/in wheelchair/weight check deferred documented in this encounter Plan of Treatment Not on filedocumented as of this encounter Procedures Procedure Name Priority Date/Time Associated Diagnosis Comme nts INR/PROTIME Same Day 04/30/2007 8:09 PM DVT (Deep Venous Resul ts for this HAND DECORATOR Thrombosis) procedure are i n the results section . documented in this encounter Results INR/PROTIME (04/30/2007 8:09 PM HAND DECORATOR) athologist Signature Protime 13.0 12.0 - 14.5 [facility] sec Coumadin No [facility] IN[facility] 0[facility]9 [facility] Specimen Anatomical Collection Method Collection Time Receive d Time (Source) Location / / Volume Laterality 04/30/2007 8:09 PM 7 8:10 HAND DECORATOR PM HAND DECORATOR Chirag Braxton MD LAB_1 Performing Organization Address City/State/ZIP Code Phon e Number [facility] [phone] [facility] [address] [address] documented in this encounter Visit Diagnoses Diagnosis DVT (deep venous thrombosis) ([facility]) - Argelia bravo Acute venous embolism and thrombosis of unspecified deep vessels of lower extremity documented in this encounter Care Teams School Cafeteria Cook Relationship Specialty Start Date End Date Jose Colin DO PCP - General 12/24/03 09/17/08 [address] [place] [address] documented as of this encounter
--- OUTSIDE RECORDS SUMMARY | 2022-01-17 22:23 | XMS_ITS | Encounter Summary ---
:1965 Author Organization [facility] Address [address] [address] Care Team Providers Name Role Phone Dungjosé antonioelbaJose medina DO Primary Care Provider [phone] Encounter Details Date Type Department Care Team Description 04/30/2007 Orders Only [facility] Radiology [address] [place] [address] Social History Tobacco Use Types Packs/Day Years Used Date Smoking Tobacco: Never Alcohol Use Standard Drinks/Week Comments Yes 0 (1 standard drink = 0.6 oz pure alcoho l) rarely Sex Assigned at Date Recorded Not on file documented as of this encounter Plan of Treatment Not on filedocumented as of this encounter Procedures Procedure Name Priority Date/Time Associated Diagnosis Comme nts VASC OMID DOPP Routine 04/30/2007 5:58 PM Resul ts for this LOW EXT - LT STORE STOCK ASSOCIATE procedure are i n the results section. documented in this encounter Results US VASC OMID DOPP LOW EXT - LT (04/30/2007 5:58 PM STORE STOCK ASSOCIATE) Anatomical Region Laterality Modality Other Specimen (Source) Anatomical Collection Method Collection Time Re ceived Time Location / / Volume Laterality 04/30/2007 5:58 PM STORE STOCK ASSOCIATE Impressions 05/03/2007 8:40 AM STORE STOCK ASSOCIATE IMPRESSION: Short segment occlusive thrombus within the left peroneal vein at the level of the mid calf. Results were discussed with Shyla mckeon, nurse practioner on 04/30/07 at 6:20 PM. ??Patient sent to [facility] for further evaluation and treatment. Narrative 05/03/2007 8:40 AM STORE STOCK ASSOCIATE EVAL FOR DVT, LT CALF PAIN, # [id number], PAGE SHYLA (MAURICIO) @ PAGER# [phone] ULTRASOUND LEFT LOWER EXTREMITY DUPLEX 1 1/20/07: COMPARISONS: ??None. INDICATIONS: ??Left calf pain. FINDINGS: ??There is a short segment occ lusive thrombus involving the left peroneal vein. ??This correspon ds to the site of this patient's calf tenderness. ??Remaining d eep venous structures of the left lower extremity are patent includin g the common femoral, superficial femoral, proximal profunda f emoris, origin of the greater saphenous, and popliteal veins. ??Posterior tibialis vein is also patent. Keyona Mace MD RAD US/ documented in this encounter Visit Diagnoses Not on filedocumented in this encounter Care Teams Oil Refinery Operator Relationship Specialty Start Date End Date Jose Colin, PCP - General 12/24/03 09/17/08 [address] [place] [address] documented as of this encounter
--- OUTSIDE RECORDS SUMMARY | 2022-01-17 22:23 | XMS_ITS | Encounter Summary ---
:1965 [facility] Address [address], [place] [address] Care Team Providers Name Role Phone Jose Colin Primary Care Provider [phone] Reason for Visit Reason Comments Careplan: Anticoagulation DVT Encounter Details Date Type Department Care Team Description 05/01/2007 Careplan [facility] Internal Thea Bella R N Careplan: Anticoagulation Medicine [facility] (DVT) [address] [place] [address] [address] [phone] [place], [place] [id number] Social History Tobacco Use Types Packs/Day Years Used Date Smoking Tobacco: Never Alcohol Use Standard Drinks/Week Comments Yes 0 (1 standard drink = 0.6 oz pure alcoho l) rarely Sex Assigned at Date Recorded Not on file documented as of this encounter Progress Notes Brigido Anand - 05/03/2007 8:23 AM CODE OFFICIAL Addended by: BRIGIDO ROGERS on: 05/03/2007 8:23:29 AM Modules accepted: Orders OFFICIAL Thea Bella - 05/01/2007 2:54 PM CST Anticoagulation initiation order for Megan Choi. Diagnoses: DVT. Therapeutic range: 2 - 3. Warfarin pill strength: 5 mg. Initiation date ( AKA date when started on warfarin ): 04/30/07. On enoxaparin: YES Length of treatment: 6 monthes or until directed by PCP. Comments: none Thea Bella RN 05/01/2007 2:53 PM OFFICIAL documented in this encounter Plan of Treatment Not on filedocumented as of this encounter Visit Diagnoses Diagnosis DVT (deep venous thrombosis) ([facility]) - Argelia bravo Acute venous embolism and thrombosis of unspecified deep vessels of lower extremity documented in this encounter Care Teams Dewer Relationship Specialty Start Date End Date Jose Colin DO PCP - General 12/24/03 09/17/08 [address] [place] [address] documented as of this encounter
--- OUTSIDE RECORDS SUMMARY | 2022-01-17 22:23 | XMS_ITS | Encounter Summary ---
:1965 Author [facility] Address [address] [place] [address] Care Team Providers Name Role Phone Jose Stack DO Primary Care Provider [phone] Reason for Visit Reason Onset Date Comments Refill 02/23/2007 Encounter Details Date Type Department Care Team Description 02/23/2007 Refill [facility] Jose Stack, Refill [address] [facility] [address] [place] [address] [place], [place] [phone] [address] (Wo rk) Social History Tobacco Use Types Packs/Day Years Used Date Smoking Tobacco: Never Alcohol Use Standard Drinks/Week Comments Yes 0 (1 standard drink = 0.6 oz pure alcoho l) rarely Sex Assigned at Date Recorded Not on file documented as of this encounter Nursing Notes Brigido Anand - 02/25/2007 11:11 AM CDTApproved Prescriptions: Disp Refills OMEPRAZOLE (PRILOSEC) 20MG ORAL CAPS 30 0 Sig: One by mouth every day Authorizing Provider: JOSE STACK Ordering User: BRIGIDO ROGERS Blank Friedman - 02/23/2007 10:13 AM CDT Last fill on 01.29.07 for a quantity of 30 documented in this encounter Plan of Treatment Not on filedocumented as of this encounter Visit Diagnoses Diagnosis GERD (gastroesophageal reflux disease) Esophageal reflux documented in this encounter Care Teams Coil Repair Technician Relationship Specialty Start Date End Date Jose Stack DO PCP - General 12/24/03 09/17/08 [address] [place] [address] documented as of this encounter
--- OUTSIDE RECORDS SUMMARY | 2022-01-17 22:24 | XMS_ITS | Encounter Summary ---
:1965 Author Organization [facility] [address], [place] [address] Care Team Providers Name Role Phone DungJose gonzalez Primary Care Provider [phone] Encounter Details Date Type Department Care Team Description 07/19/2005 Office Visit [facility] Plastic Aravind Jose MD [facility] Surgery [address] [place] [address] Social History Tobacco Use Types Packs/Day Years Used Date Smoking Tobacco: Never Alcohol Use Standard Drinks/Week Comments Yes 0 (1 standard drink = 0.6 oz pure alcoho l) rarely Sex Assigned at Date Recorded Not on file documented as of this encounter Last Filed Vital Signs Vital Sign Reading Time Taken Comments Blood Pressure 115/65 07/19/2005 2:30 PM SCREEDMAN/LABORER Pulse 74 07/19/2005 2:30 PM SCREEDMAN/LABORER Temperature - - Respiratory Rate 12 07/19/2005 2:30 PM SCREEDMAN/LABORER Oxygen Saturation - - Inhaled Oxygen Concentration - - Weight - - Height - - Body Mass Index - - documented in this encounter Progress Notes Aravind Jose - 07/19/2005 12:00 AM CSTMrsAlly Choi is seen 6 days after removal of a right wrist ganglion. She's doing well. She did develop a flu after her anesthetic so she was sick for a few days after surgery however she's complaining of minimal pain in the arm. The splint was removed. The incision is clean. There's very mild bruising, no unusual wound complications. There's no palpable recurrence and she has reasonable range of motion of the wrist. I took her sutures out today. I've asked her to keep the area Steri-stripped for the next 2 weeks, and she'll wear a protective splint most of the time. I'll see her back in 3 weeks. I did give her a return to work notice. P cc: EDMAN/LABORER Aravind Jose - 07/19/2005 12:00 AM SCREEDMAN/LABORER EDMAN/LABORER documented in this encounter Nursing Notes 07/19/2005 2:30 PM CST >> ALESIA ARIAS 07/19/2005 2:31 pm Megan Pinedoon is here today regarding f/u surgery - removal of ganglion cyst. Location: on right wrist. Pain assessment: 4 to 5 Location: right wrist, Frequency: Everyday, Type: dullache, Duration: off and on Injury?: No ER follow-up?: No Surgery?: Yes, date: 07-13-05 Current outpatient prescriptions OMEPRAZOLE (PRILOSEC) 20MG ORAL CAPS, 1 tablet daily, Disp: , Rfl: 0; HYDROCODONE/APAP (VICODIN) 5-500MG ORAL TABS, as needed for breakthrough pain; up to qid , Disp: 30, Rfl: 2; KETOCONAZOLE 2 % EX CREA, apply daily, Disp: 1, Rfl: 99; ELIDEL 1 % EX CREA, apply to affected areas bid, Disp: 1 stock, Rfl: 1; Patient's pcp is Jose Colin DO. Referring provider is f/u. Allergies: Erythromycin BP 115/65 Pulse 74 Resp 12 Alesia Arias LPN, 2:29 PM, 07/19/2005 documented in this encounter Plan of Treatment Not on filedocumented as of this encounter Visit Diagnoses Diagnosis Ganglion, unspecified documented in this encounter Care Teams Packaging Tech Relationship Specialty Start Date End Date Jose Colin DO PCP - General 12/24/03 09/17/08 [address] [place] [address] documented as of this encounter
--- OUTSIDE RECORDS SUMMARY | 2022-01-17 22:24 | XMS_ITS | Encounter Summary ---
:1965 [facility] Address [address], [place] [address] Care Team Providers Name Role Phone Unassigned, Provider Primary Care Provider Unavailable Encounter Details Date Type Department Care Team Description 02/19/2006 Outside Hospital External to Rissa Dhillon OPE RATIVE REPORT- [facility] Social History Tobacco Use Types Packs/Day Years Used Date Smoking Tobacco: Never Alcohol Use Standard Drinks/Week Comments Yes 0 (1 standard drink = 0.6 oz pure alcoho l) rarely Sex Assigned at Date Recorded Not on file documented as of this encounter Progress Notes Rissa Dhillon - 02/19/2006 12:00 AM CDT documented in this encounter Plan of Treatment Not on filedocumented as of this encounter Visit Diagnoses Not on filedocumented in this encounter Care Teams Brine Plant Operator Relationship Specialty Start Date End Date Unassigned, Provider PCP - General 09/18/[address] [place] [address] documented as of this encounter
--- OUTSIDE RECORDS SUMMARY | 2022-01-17 22:24 | XMS_ITS | Encounter Summary ---
:1965 Author Organization [facility] Address [address] [place] [address] Care Team Providers Name Role Phone Dungjosé antonioelbaJose medina Primary Care Provider [phone] Reason for Visit Reason Onset Date Comments Medication Questions 10/16/2005 Encounter Details Date Type Department Care Team Description 10/16/2005 Telephone [facility] Obstetrics and Yun Flynn MD Medication Questions Gynecology [address] [place] [address] Social History Tobacco Use Types Packs/Day Years Used Date Smoking Tobacco: Never Alcohol Use Standard Drinks/Week Comments Yes 0 (1 standard drink = 0.6 oz pure alcoho l) rarely Sex Assigned at Date Recorded Not on file documented as of this encounter Nursing Notes 10/16/2005 11:59 PM CDT >> AKBAR HOOD SunOctober 16, 2005 1:24 PM Gave pt provera instructions. She does need a refill at this time. >> AKBAR HOOD SunOctober 16, 2005 1:17 PM Per pt is to take progesterone days 17-28 for cycle regulation. When withdrawal bleed sta rts from current 12 day prog tx that will be day 1 of new cycle and pt can start prog on day 17. OKto send rx if pt needs refill. >> AKBAR HOOD SunOctober 16, 2005 1:15 PM Pt will be finishing day 12 of progesterone tomorrow. She wants to know if she is to cont taking pro g and if so she needs directions. Will consult . >> AKBAR HOOD SunOctober 16, 2005 12:36 PM LMTCB at # above. >> CHELSEA PRESLEY SunOctober 16, 2005 12:25 PM Pt. is calling re: medication question (estrogen pills). Please call pt. Chelsea Presley documented in this encounter Plan of Treatment Not on filedocumented as of this encounter Visit Diagnoses Not on filedocumented in this encounter Care Teams Equal Opportunity Director Relationship Specialty Start Date End Date Jose Colin DO PCP - General 12/24/03 09/17/08 [address] [place] [address] documented as of this encounter
--- OUTSIDE RECORDS SUMMARY | 2022-01-17 22:24 | XMS_ITS | Encounter Summary ---
:1965 Author Organization [facility] Address [address], [place] [address] Care Team Providers Name Role Phone Jose Colin DO Primary Care Provider [phone] Encounter Details Date Type Department Care Team Description 10/04/2005 Office Visit [facility] under sheriff Ultra sound IRREGULAR MENSTRUATION; [address] [facility] [place] [address] Social History Tobacco Use Types Packs/Day Years Used Date Smoking Tobacco: Never Alcohol Use Standard Drinks/Week Comments Yes 0 (1 standard drink = 0.6 oz pure alcoho l) rarely Sex Assigned at Date Recorded Not on file documented as of this encounter Plan of Treatment Not on filedocumented as of this encounter Visit Diagnoses Diagnosis Irregular menstrual cycle Polyp of corpus uteri documented in this encounter Care Teams Traffic Signal Mechanic Relationship Specialty Start Date End Date Jose Colin DO PCP - General 12/24/03 09/17/08 [address] [place] [address] documented as of this encounter
--- OUTSIDE RECORDS SUMMARY | 2022-01-17 22:24 | XMS_ITS | Encounter Summary ---
:1965 Author Organization [facility] Address [address], [place] [address] Care Team Providers Name Role Phone Dungjosé antonioelbaJose medina Primary Care Provider [phone] Encounter Details Date Type Department Care Team Description 10/07/2005 Notes/Orders [facility] Obstetrics and Yun Flynn, EX CESSIVE MENSTRUATION; Gynecology MD PREVENTIVE CARE EXAM [address] [place], [place] [id number] Social History Tobacco Use Types Packs/Day Years Used Date Smoking Tobacco: Never Alcohol Use Standard Drinks/Week Comments Yes 0 (1 standard drink = 0.6 oz pure alcoho l) rarely Sex Assigned at Date Recorded Not on file documented as of this encounter Plan of Treatment Not on filedocumented as of this encounter Procedures Procedure Name Priority Date/Time Associated Diagnosis Comme nts LIPID PANEL, FAST > Routine 10/07/2005 8:33 AM Preventive Care Exam Results for this 12 HOUR CDT procedure are i n the results section. TSH, SENSITIVE Routine 10/07/2005 8:32 AM Excessive Results for this (WITH REFLEX) CDT Menstruation procedure are in the results section. GLUCOSE - FASTING > Routine 10/07/2005 8:31 AM Preventive Care Exam Results for this 8 HRS FASTING CDT procedure are in the results section. documented in this encounter Results CHOLESTEROL LIPID PANEL FAST >12HR FAST (10/07/2005 8:33 AM CDT) P athologist Signature Cholesterol 188 <200 mg/dl [facility] Triglyceride 95 <200 mg/dl [facility] HDL 46 >35 mg/dl [facility] LDL, Calc. 123 mg/dl [facility] Hours Fasting 12 hours [facility] Specimen Anatomical Collection Method Collection Time Receive d Time (Source) Location / / Volume Laterality 10/07/2005 8:33 AM 6 8:34 CDT AM CDT Yun Flynn MD LAB_1 Performing Organization Address [facility] Code Phon e Number [facility] [phone] [facility] [address] [place] [phone] TSH, SENSITIVE (WITH REFLEX) (10/07/2005 8:32 AM CDT) P athologist Signature TSH, with 1.80 0.3 - 5.0 [facility] Reflex uIU/ml Specimen Anatomical Collection Method Collection Time Receive d Time (Source) Location / / Volume Laterality 10/07/2005 8:32 AM 6 8:33 CDT AM CDT Yun Flynn MD LAB_1 Performing Organization Address [facility] Code Phon e Number [email or web address] [phone] [phone] (ABNORMAL) GLUCOSE - FASTING > 8 HRS FASTING (V77.1) (10/07/2005 8:31 AM CDT) Analysis Performed At Patho logist Time Signature Glucose 111 (H) 70 - 100 [facility] mg/dl Hours Fasting 12 hours [facility] Specimen Anatomical Collection Method Collection Time Receive d Time (Source) Location / / Volume Laterality 10/07/2005 8:31 AM 6 8:32 CDT AM CDT Yun Flynn MD LAB_1 Performing Organization Address [facility]/ZIP Code Phon e Number [facility] [phone] [phone] documented in this encounter Visit Diagnoses Diagnosis Excessive or frequent menstruation Routine general medical examination at [facility] facility Routine general medical examination at a health care facility documented in this encounter Care Teams Ladle Watcher Relationship Specialty Start Date End Date Jose Colin DO PCP - General 12/24/03 09/17/[address] [place] [address] documented as of this encounter
--- OUTSIDE RECORDS SUMMARY | 2022-01-17 22:24 | XMS_ITS | Encounter Summary ---
:1965 Author Organization [facility] Address [address] [place] [address] Care Team Providers Name Role Phone Jose Colin DO Primary Care Provider [phone] Reason for Visit Reason Comments PRE-OP EXAM Encounter Details Date Type Department Care Team Description 10/31/2005 Office Visit [facility] Internal [place], PREOP EXAM OTHER SPECIFIED (Primary Dx); Medicine Jose Allan DO EXCESSIVE MENSTRUATION [address] [facility] [address] [place] [address] [place], [place] [phone] [address] Social History Tobacco Use Types Packs/Day Years Used Date Smoking Tobacco: Never Alcohol Use Standard Drinks/Week Comments Yes 0 (1 standard drink = 0.6 oz pure alcoho l) rarely Sex Assigned at Date Recorded Not on file documented as of this encounter Last Filed Vital Signs Vital Sign Reading Time Taken Comments Blood Pressure 106/68 10/31/2005 4:00 PM CDT Pulse 72 10/31/2005 4:00 PM CDT Temperature - - Respiratory Rate 16 10/31/2005 4:00 PM CDT Oxygen Saturation - - Inhaled Oxygen Concentration - - Weight 81.6 kg (180 lb) 10/31/2005 4:00 PM CDT Height 160 cm (5' 3) 10/31/2005 4:00 PM CDT Body Mass Index 31.89 10/31/2005 4:00 PM CDT documented in this encounter Progress Notes 10/31/2005 4:00 PM CDT PRE-OP QUESTIONS: Tightening or pressure [...] no. Do you have active Tuberculosis? no SUBJECTIVE: Megan Choi is a 40 yr old female who is here for evaluation for fitness for surgery. She isscheduled for [facility] at [facility] on 11/07/[address] Hobson. HPI: long-standing menometthorgia and fibroids; The rest of the complete ROS are negative. 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* [employer] Social History Main Topics Tobacco Use: Never Alcohol Use: Yes Comment: rarely Sexual Activity: Yes Partners with: Male Control/Protection: Surgical Past Medical History: ESOPHAGEAL REFLUX IDIO PERIPH NEURPTHY NOS Comment: right foot NORMAL DELIVERY Comment: times 2 Past Surgical History: TONSILLECT PRIM/SEC; UNDER AGE 10 NECK SPINAL FUSION 2000 Comment: c5-c7 L5-S1 microdiskectomy, hemilaminectomy, forami* 09/13 DELIVERY ONLY; 1987 Comment: and tubal ligation EXCISION OF GANGLION WRIST; PRIMARY 07-13-05 Comment: rt OTHER - PROCEDURES 1984 Comment: cryo to uterine cervix Review of patient's family history indicates: Diabetes, Type II Mother Diabetes, Type II Father Coronary Artery Disease Father Hypertension Mother Hypertension Father Other Father Comment: sky's Kidney Disorder Father Cancer, Breast Negative Family Histo Cancer, Ovary Other Comment: first cousin, maternal, diagnosed about age 32 Anesthesia Reaction Negative Family Histo Bleeding Disorder Negative Family Histo Diabetes, Type II Brother Diabetes, Type II Sister Current outpatient prescriptions AMBIEN 10 MG OR TABS, Take one-half to one tablet by mouth at bedtime as needed for sleep; only tkae for 3-5 days in a row, Disp: 10, Rfl: 0 MEDROXYPROGESTERONE ACETATE 10 MG OR TABS, One tablet orally every day for 12 days, Disp: 36, Rfl: 3 OMEPRAZOLE (PRILOSEC) 20MG ORAL CAPS, 1 tablet daily, Disp: , Rfl: 0 PHYSICAL EXAMINATION: The patient appears healthy, in no acute distress and mobile without assistance BP 106/68 Pulse 72 Resp 16 Ht 5' 3 (1.60m) Wt 180 lbs (81.6kg) Neck: supple, no lymphadenopathy, no thyromegaly and full range of motion Heart: regular rate and rhythm, normal S1 and S2 without murmur or click Lungs: clear to auscultation, no wheezes or rales Abdomen: Abdomen soft, non-tender without masses or organomegaly Edema: no Neuro: nonfocal motor/sensory exam HEENT: anicteric, EOMI, PERRL, mmm EKG: normal sinus rhythm, nonspecific ST changes, unchanged from prior EKG as per my indepent review LAB: HGB 13.8 09/22/2004 ASSESSMENT/PLAN: 1) Megan Choi is a 40 yr old female is Fit for surgery. No major medical issues for plannedprocedure for a non-cardiac surgical procedure. Recommended that Megan Choi avoid aspirin for 7 days prior to surgery and avoid ibuprofen products for 5 days prior to surgery Jose Colin, 4:32 PM 10/31/2005 (This chart has been electronically signed) documented in this encounter Plan of Treatment Not on filedocumented as of this encounter Procedures Procedure Name Priority Date/Time Associated Diagnosis Comme nts ECG TRACING 10/31/2005 Results for thi s procedure are in the resu lts section. documented in this encounter Results DRAW TUBE & HOLD (10/31/2005 4:11 PM CDT) [facility] gist Method Time Signature Draw and Hold Specimen [facility] Available Based on Sample Stability Specimen Anatomical Collection Method Collection Time Receive d Time (Source) Location / / Volume Laterality 10/31/2005 4:11 PM 6 4:12 CDT PM CDT Jose Colin DO LAB_1 Performing Organization Address City/State/ZIP Code Phon e Number [facility] [phone] [facility] [address] [place] [phone] HEMOGRAM/PLTS/DIFF (10/31/2005 4:11 PM CDT) athologist Signature WBC 7.7 4.0 - 11.0 [facility] k/ul RBC 4.27 4.0 - 5.2 [facility] M/ul Hemoglobin 13.2 12.0 - [facility] 16.0 g/dl HCT 37.8 36.0 - [facility] 46.0 % MCV 88.5 80 - 100 [facility] fl MCH 30.9 26 - 34 pg [facility] MCHC 34.9 32 - 36 % [facility] RDW 13.7 11.5 - [facility] 14.5 % Platelets 241 150 - 450 [facility] k/ul PMN/Band 56 43 - 72 % [facility] Lymph 34 17 - 43 % [facility] Woodson 7 4 - 12 % [facility] Eos 2 0 - 8 % [facility] Baso 1 0 - 1 % [facility] Neutrophil 4.3 1.8 - 7.7 [facility] Absolute k/ul Lymph Absolute 2.7 1.0 - 4.8 [facility] k/ul Woodson Absolute 0.6 0.1 - 0.7 [facility] k/ul Eos Absolute 0.2 0.0 - 0.5 [facility] k/ul Baso Absolute 0.1 0.0 - 0.2 [facility] k/ul Specimen Anatomical Collection Method Collection Time Receive d Time (Source) Location / / Volume Laterality 10/31/2005 4:11 PM 4:12 CDT PM CDT Jose Colin DO LAB_1 Performing Organization Address City/State/ZIP Code Phon e Number [facility] [phone] [phone] documented in this encounter Visit Diagnoses Diagnosis Other specified pre-operative examinatio n - Primary Excessive or frequent menstruation documented in this encounter Care Teams Cast Associate Relationship Specialty Start Date End Date Jose Colin DO PCP - General 12/24/03 09/17/[address] [place] [address] documented as of this encounter
--- OUTSIDE RECORDS SUMMARY | 2022-01-17 22:24 | XMS_ITS | Encounter Summary ---
:1965 Author Organization [facility] Address [address] [place] [address] Care Team Providers Name Role Phone Jose Colin DO Primary Care Provider [phone] Reason for Visit Reason Comments RESULTS, TEST Labs. Consult from Dr. Cotto er Encounter Details Date Type Department Care Team Description 10/20/2005 Office Visit [facility] Internal MARLA Colin FA STING GLUCOSE (Primary Dx); Medicine Jose Allan DO INSOMNIA NOS [address] [facility] [address] [place] [address] [place], [place] [phone] Social History Tobacco Use Types Packs/Day Years Used Date Smoking Tobacco: Never Alcohol Use Standard Drinks/Week Comments Yes 0 (1 standard drink = 0.6 oz pure alcoho l) rarely Sex Assigned at Date Recorded Not on file documented as of this encounter Last Filed Vital Signs Vital Sign Reading Time Taken Comments Blood Pressure 116/72 10/20/2005 4:00 PM CDT Pulse 62 10/20/2005 4:00 PM CDT Temperature - - Respiratory Rate 18 10/20/2005 4:00 PM CDT Oxygen Saturation - - Inhaled Oxygen Concentration - - Weight 79.8 kg (176 lb) 10/20/2005 4:00 PM CDT Height 160 cm (5' 3) 10/20/2005 4:00 PM CDT Body Mass Index 31.18 10/20/2005 4:00 PM CDT documented in this encounter Progress Notes 10/20/2005 4:00 PM CDT OFFICE NOTE: Megan Choi is a 40 yr old female who presents for the following issues: GLUCOSE (mg/dl) Date Value Low High Status 10/07/2005 111* 70 100 Final ASSESSMENT/PLAN: 1) impaired fasting glucose - The value for your blood sugar was slightly elevated. This means thatyou do NOT have diabetes, but may be at risk of developing diabetes in the future; we call this condition Impaired Fasting Glucose. I would suggest that you call the appointment line to schedule an appo itment with the preventing diabetes class to discuss your diet and exercise in light of your bloodsugar results. 2) insomnia - not every night; OTC's do not work; discussed regular aerobic exercise, no caffeine after noon, cool sleeping environment, no reading/watching TV in bed; discussed the proper way of taking rx's and that these meds may become habit-forming; Discussed at length; The patient indicated thatshe understood. Total time spent with the patient today was 27 minutes. Of this time, 27 minutes were spent counseling her on the above issues and coordinating her care. Jose Colin DO 8:58 AM 10/23/2005 documented in this encounter Plan of Treatment Not on filedocumented as of this encounter Visit Diagnoses Diagnosis Impaired fasting glucose - Primary Other insomnia Insomnia, unspecified documented in this encounter Care Teams Tool Machine Set Up Operator Relationship Specialty Start Date End Date Jose Colin DO PCP - General 12/24/03 09/17/08 [address] [place] [address] documented as of this encounter
--- OUTSIDE RECORDS SUMMARY | 2022-01-17 22:24 | XMS_ITS | Encounter Summary ---
:1965 Author Organization [facility] Address [address] [place] [address] Care Team Providers Name Role Phone Dixie Jose Jerrell BOOGIE Primary Care Provider [phone] Reason for Visit Reason Comments PAIN, FOOT follow up injection right fo ot metatarsal Encounter Details Date Type Department Care Team Description 07/12/2005 Office Visit [facility] Dra[facility] Foot and Ankle Surge ry DPM [address] [place] [address] Social History Tobacco Use Types Packs/Day Years Used Date Smoking Tobacco: Never Alcohol Use Standard Drinks/Week Comments Yes 0 (1 standard drink = 0.6 oz pure alcoho l) rarely Sex Assigned at Date Recorded Not on file documented as of this encounter Last Filed Vital Signs Vital Sign Reading Time Taken Comments Blood Pressure 127/68 07/12/2005 1:40 PM PLEASURE CRAFT SAILOR Pulse 66 07/12/2005 1:40 PM PLEASURE CRAFT SAILOR Temperature 35.7 ??C (96.3 ??F) 07/12/2005 1:40 PM PLEASURE CRAFT SAILOR Respiratory Rate - - Oxygen Saturation - - Inhaled Oxygen Concentration - - Weight - - Height - - Body Mass Index - - documented in this encounter Progress Notes 07/12/2005 1:40 PM PLEASURE CRAFT SAILOR This office note has been dictated. MARÍA Lau William - 07/12/2005 12:00 AM CSTSUBJECTIVE: Patient presented for followup and pain in the ball of the right foot. We had last seen her on June 26, suspected of possible Coello neuroma and had given her a cortisone injection. She relates that she is better but still not doing as well as she would like to. Still has some discomfort on activity and it is still limiting her activity level. Medical records were again reviewed. OBJECTIVE: On examination, there is a mass and a positive Emiliano sign in the third interspace of the right foot. It is only minimally tender on examination but is consistent with a Coello neuroma. No specific tenderness to the metatarsals or metatarsophalangeal joint. No tenderness along the metatarsal; no palpable external callus consistent with stress fracture. Remainder of the exam is unchanged. 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 She is wearing conservative shoe wear but fairly flexible, has added an [id number] arch support. PLAN: We discussed with the patient that cortisone injection will continue working over the next three weeks. Recommended that we continue conservative therapy since she is improving. Talked about shoe wear with a firmer sole, more stability, continue with the extra arch support. We did talk about a custom orthotic and adequate room in the forefoot. Recommended that she again reappoint in three weeks. If she is still having discomfort, we can consider repeating the cortisone injection but she does seem to be responding and she is comfortable with continued conservative therapy. She will reappoint in three weeks. ?? P cc: SURE CRAFT SAILOR documented in this encounter Nursing Notes 07/12/2005 1:40 PM CST >> BRIGIDO MOISE 07/12/2005 1:36 pm Megan Choi is a 40 yr, female here for continued care of right FOOT metatarsal Pain follow injection report help some, still having pain Pain assessment:YES. PAIN SCALE-6 Location: metatarsal pain, Frequency: Everyday, Description: stinging pain, Onset: October Patient was last seen in Podiatry on 06/26/05. Did you have a surgical procedure? No Where was the procedure performed? n/a. Injury: No. Litigation: NO Tobacco Status reviewed? -NO (see History Social-Substance) Diabetes? NO Sleep Apnea? NO BP 127/68 Pulse 66 Temp 96.3 Current outpatient prescriptions OMEPRAZOLE (PRILOSEC) 20MG ORAL CAPS, 1 tablet daily, Disp: , Rfl: 0 HYDROCODONE/APAP (VICODIN) 5-500MG ORAL TABS, as needed for breakthrough pain; up to qid , Disp: 30,Rfl: 2 KETOCONAZOLE 2 % EX CREA, apply daily, Disp: 1, Rfl: 99 ELIDEL 1 % EX CREA, apply to affected areas bid, Disp: 1 stock, Rfl: 1 Allergies As of Date: 07/12/2005 Noted Reaction ERYTHROMYCIN 06/20/2001 Date Reviewed: 07/12/2005 Allergies to Latex? NO Brigido García LPN, 1:34 PM, 07/12/2005 documented in this encounter Plan of Treatment Not on filedocumented as of this encounter Visit Diagnoses Diagnosis Lesion of plantar nerve documented in this encounter Care Teams Squeegee Tender Relationship Specialty Start Date End Date Jose Colin DO PCP - General 12/24/03 09/17/08 [address] [place] [address] documented as of this encounter
--- OUTSIDE RECORDS SUMMARY | 2022-01-17 22:24 | XMS_ITS | Encounter Summary ---
:1965 Author Organization [facility] Address [address] [place] [address] Care Team Providers Name Role Phone Jose Colin DO Primary Care Provider [phone] Reason for Visit Reason Onset Date Comments QUESTIONS, GENERAL 12/15/2005 Encounter Details Date Type Department Care Team Description 12/15/2005 [facility] Allan DO [address] [place], [place] [address] [place], [place] [phone] [address] Social History Tobacco Use Types Packs/Day Years Used Date Smoking Tobacco: Never Alcohol Use Standard Drinks/Week Comments Yes 0 (1 standard drink = 0.6 oz pure alcoho l) rarely Sex Assigned at Date Recorded Not on file documented as of this encounter Nursing Notes 12/15/2005 11:59 PM CDT >> BRIGIDO ROGERS Fri Dec 15, 2005 1:58 PM Pt needs her records from when she had Neurosurg on her back last yr, instructed pt would need to ca ll that office for her records, will need to sign a STEVEN >> RICKEY NOVAK Fri Dec 15, 2005 12:28 PM Patient would like to speak to her provider. Name of patient's provider: Dr. Maynard Summarize the patient's question or concern: PT STATED SHE HAD LOWER BACK SURGERY LAST YEAR. SHE ISNOW STATING SHE NEEDS DOCTORS NOTES AND ANYTHING PERTAINING TO HER LOWER BACK SURGERY (I.E. SURGEON S NOTES WELL. PLEASE CALL HER FOR FURTHER INFORMATION. PT WOULD LIKE A CALL BACK BEFORE 3:30-THIS IS BEING MARKED URGENT. Patient would like a call back today . Rickey Novak documented in this encounter Plan of Treatment Not on filedocumented as of this encounter Visit Diagnoses Not on filedocumented in this encounter Care Teams Junior Oracle Dba Relationship Specialty Start Date End Date Jose Colin DO PCP - General 12/24/03 09/17/08 [address] [place] [address] documented as of this encounter
--- OUTSIDE RECORDS SUMMARY | 2022-01-17 22:24 | XMS_ITS | Encounter Summary ---
:1965 Author Organization [facility] Address [address], [place] [address] Care Team Providers Name Role Phone Jose Colin DO Primary Care Provider [phone] Encounter Details Date Type Department Care Team Description 11/07/2005 Hospital Encounter [facility] MD Yun ENDOMETRIAL POLYP [address] [place] [address] Social History Tobacco Use Types Packs/Day Years Used Date Smoking Tobacco: Never Alcohol Use Standard Drinks/Week Comments Yes 0 (1 standard drink = 0.6 oz pure alcoho l) rarely Sex Assigned at Date Recorded Not on file documented as of this encounter Last Filed Vital Signs Vital Sign Reading Time Taken Comments Blood Pressure 108/53 11/07/2005 11:00 AM CDT Pulse 61 11/07/2005 11:00 AM CDT Temperature - - Respiratory Rate 16 11/07/2005 11:00 AM CDT Oxygen Saturation 97% 11/07/2005 11:00 AM CDT Inhaled Oxygen Concentration - - Weight 81.6 kg (180 lb) 11/07/2005 7:38 AM CDT Height 160 cm (5' 3) 11/07/2005 7:38 AM CDT Body Mass Index 31.89 11/07/2005 7:38 AM CDT documented in this encounter Medications at Time of Discharge Medication Sig Dispensed Refills Start Date End Date AMBIEN 10 MG OR TABS Take one-half to 10 0 6 02/13/2006 one tablet by mouth at bedtime as needed for sleep; only tkae for 3-5 days in a row MEDROXYPROGESTERONE ACETATE One tablet 36 3 20 06 03/22/2006 10 MG OR TABSIndications: orally every day Excessive or frequent for 12 days menstruation OMEPRAZOLE (PRILOSEC) 20MG 1 tablet daily 0 06/1602/13/2006 ORAL CAPS documented as of this encounter Procedure Notes Jocelyn Carlton - 11/07/2005 8:32 PM CDT DATE OF SURGERY: 11/07/2005 STAFF SURGEON: Yun Flynn MD RESIDENT SURGEON: Jocelyn Carlton MD PREOPERATIVE DIAGNOSES: 1. Menometrorrhagia. 2. Endometrial polyp. POSTOPERATIVE DIAGNOSES: 1. Menometrorrhagia. 2. Endometrial polyp. NAME OF OPERATION: 1. Operative hysteroscopy with resection of endometrial polyp. 2. Dilation and curettage. ANESTHESIA: General endotracheal. COMPLICATIONS: None apparent. INTRAVENOUS FLUIDS: 900 cc LR. ESTIMATED BLOOD LOSS: Less than 20 cc. DISTENDING FLUID: Glycine. FLUID DEFICIT: 580 cc with approximately 200 cc on the drapes. FINDINGS: EUA: Small anteverted uterus with normal adnexa bilaterally. Uterine sound - 9 cm. Hysteroscopic: small anterior right polyp. Larger mid positioned fundal polyp versus submucosal fibroid. Normal appearing endometrium. SPECIMENS: 1. Endometrial curettings. 2. Endometrial polyp. DESCRIPTION OF PROCEDURE: The patient voided en route to the OR. General endotracheal anesthesia was placed without difficulty. An examination under anesthesia was performed and the above findings noted. She was then prepped and draped in the dorsal lithotomy position using blue fin stirrups. A bivalve speculum was placed. A single-tooth tenaculum was placed in the anterior lip of the cervix withoutdifficulty. The uterus was then sounded to 9 cm and serially dilated to 6 using Luisa dilators. The diagnostic hysteroscope was then placed without difficulty. A serial examination of the uterine cavity was then performed and the above findings noted. The hysteroscope was then removed. Sharp curettage was performed until a gritty texture was appreciated. The hysteroscope was then replaced without difficulty. The small right fundal polyp had been effectively removed; however, the larger midline fundal polyp was still present. Therefore, the cervix was serially dilated to 9 using Luisa dilators and the operative hysteroscope was placed without difficulty. The resectoscope was used to effectively remove the midline fundal polyp. There was no evidence of uterine injury at the end of the procedure, and excellent hemostasis was observed. All instruments were removed. Excellent hemostasis was noted at the tenaculum site. The patient tolerated the procedure well. Sponge counts were correct as reported. Jocelyn Carlton MD kln Dictated: 11/07/2005 20:32:53 Transcribed: 11/07/2005 22:32:42 Doc #: [id number] cc: Yun Flynn MD, Attending Physician Jose Colin, , Primary Physician DO NOT SIGN UNLESS PRESENT FOR PROCEDURE I attest that I was present for and participated in the ma portions of this procedure(s) in compliance with the Health Care Financing Administration Teaching Physician Guidelines. Signed Date [facility] Staff Physician This document was electronically signed by Jocelyn Carlton MD on 11/12/2005 15:48:07. ? 1 Page 2 Patient Name: PADMINI CHOI Visit Date: 11/07/2005 OUTPATIENT OPERATIVE REPORT CONFIDENTIAL MEDICAL RECORD [address] [address] Page 1 Patient: PADMINI CHOI [id number] Date of : 1965 Age: 40Y Visit Date: 11/07/2005 OUTPATIENT OPERATIVE REPORT documented in this encounter Miscellaneous Notes OR Nursing - Emmie Burch - 11/07/2005 9:44 AM CDT Progress Note Patient Name: Padmini Choi Date of : 1965 glycine 1.5% input 4850cc deficit 580cc Emmie Burch 11/07/2005 at 9:45 AM documented in this encounter Plan of Treatment Not on filedocumented as of this encounter Procedures Procedure Name Priority Date/Time Associated Diagnosis Comme nts DILATATION AND CURETTAGE HPSDS 11/07/2005 8:37 AM WITH HYSTEROSCOPY CDT Case Notes hysteroscopy d and c poss resect SURGICAL PATH Routine 11/07/2005 12:00 AM CDT Res ults for this procedure are in the results section . documented in this encounter Results SURGICAL PATH (11/07/2005 12:00 AM CDT) [employer] Method Time Signature 9911 (NOTE) [facility] Final Report Patient Name: PADMINI CHOI Taken: 11/07/2005 Received: 11/07/2005 Reported: 11/08/2005 Physician(s): YUN FLYNN ? Final Pathologic Diagnosis A. ??Endometrium, curettage ?1. ??Fragments of benign endometrium admixed with frag ments of endometrial polyp and fragments of myometrium. ?2. ??Negative for hyperplasia and malignancy. B. ??Endometrium, polyp, curettage ?1. ??Fragments of endometrial polyp admixed with myome trium. ?2. ??Negative for hyperplasia and malignancy. /11/08/2005 Electronically Signed Out By ? Gudelia Jaffe MD ([id number]) Procedures/Addenda Clinical History Excessive bleeding Gross Description A. The specimen is received in formalin and labeled endometr ial curettings. The specimen consists of scant blood-tinged tiss ue fragments in a 3.5 x 3.5 x 0.5 cm in aggregate of mucus. The specimen is filtered and entirely submitted in two cassettes. B. ??The specimen is received in formalin and labeled polyp. ??The specimen consists of a 1.5 x 1.5 x 0.5 cm in aggregate of ru bbery [place] tissue chips. GUERA/gabe good/11/08/2005 Microscopic Description Microscopic examination is performed on six slides. man/11/08/2005 Gudelia Jaffe MD ([id number]) Specimen (Source) Anatomical Location Collection Method / Collectio n Time Received Time / Laterality Volume 11/07/2005 11/07/2005 Yun Flynn MD LAB_1 Performing Organization Address City/State/ZIP Code Phon e Number [address] [address] [place], [place] [phone] documented in this encounter Visit Diagnoses Diagnosis Metrorrhagia Polyp of corpus uteri documented in this encounter Administered Medications Inactive Administered Medications - up to 3 most recent administrations Medication Order MAR Action Action Date Dose Rate Site FENTanyl Given 11/07/2005 10:20 AM CDT 50 mcg Starting on Sun11/07/05, Until Sun11/07/05 at 1117 Given 11/07/2005 10:07 AM CDT 50 mcg TYLENOL/CODEINE #3 Given 11/07/2005 10:21 AM CDT 1 Tablet Starting on Sun11/07/05 documented in this encounter Care Teams Salvage Cutter Relationship Specialty Start Date End Date Jose Colin DO PCP - General 12/24/03 09/17/08 [address] [place] [id number] documented as of this encounter
--- OUTSIDE RECORDS SUMMARY | 2022-01-17 22:24 | XMS_ITS | Encounter Summary ---
:1965 Author Organization [facility] Address [address] [place] [address] Care Team Providers Name Role Phone Unassigned, Provider Primary Care Provider Unavailable Encounter Details Date Type Department Care Team Description 10/31/2005 Orders Only [facility] Internal Med icine Unknown, Physician [address] [facility] [address] [place] [address] [place] [address] [phone] (Wo rk) Social History Tobacco Use Types Packs/Day Years Used Date Smoking Tobacco: Never Alcohol Use Standard Drinks/Week Comments Yes 0 (1 standard drink = 0.6 oz pure alcoho l) rarely Sex Assigned at Date Recorded Not on file documented as of this encounter Procedure Notes Jose Colin - 10/31/2005 12:00 AM CDTAssociated Order(s): EKG documented in this encounter Plan of Treatment Not on filedocumented as of this encounter Procedures Procedure Name Priority Date/Time Associated Diagnosis Comme nts EKG 10/31/2005 12:00 AM Results for this CDT procedure are i n the results section . documented in this encounter Results EKG (10/31/2005 12:00 AM CDT) Narrative 10/31/2005 12:00 AM CDT This result has an attachment that is no t available. Ordered by an unspecified provider. Transcriptions Jose Colin - 10/31/2005 12:00 AM CDT Physician Unknown EKG documented in this encounter Visit Diagnoses Not on filedocumented in this encounter Care Teams Plant Puller Relationship Specialty Start Date End Date Unassigned, Provider PCP - General 09/18/08 [address] [place] [address] documented as of this encounter
--- OUTSIDE RECORDS SUMMARY | 2022-01-17 22:24 | XMS_ITS | Encounter Summary ---
:1965 Author Organization [facility] Address [address] [place] [address] Care Team Providers Name Role Phone MoJose medina DO Primary Care Provider [phone] Encounter Details Date Type Department Care Team Description 07/13/2005 Surgery Clark Jose MD EXCISION MA SS FINGER OR HAND OR WRIST Social History Tobacco Use Types Packs/Day Years Used Date Smoking Tobacco: Never Alcohol Use Standard Drinks/Week Comments Yes 0 (1 standard drink = 0.6 oz pure alcoho l) rarely Sex Assigned at Date Recorded Not on file documented as of this encounter Last Filed Vital Signs Vital Sign Reading Time Taken Comments Blood Pressure 123/62 07/13/2005 2:00 PM FARO DEALER Pulse 66 07/13/2005 2:00 PM FARO DEALER Temperature 36.6 ??C (97.8 ??F) 07/13/2005 11:59 AM FARO DEALER Respiratory Rate 16 07/13/2005 2:00 PM FARO DEALER Oxygen Saturation 100% 07/13/2005 2:00 PM FARO DEALER Inhaled Oxygen Concentration - - Weight 82.6 kg (182 lb 1.6 oz) 07/13/2005 11:59 AM FARO DEALER Height 160 cm (5' 3) 07/13/2005 11:59 AM FARO DEALER Body Mass Index 32.26 07/13/2005 11:59 AM FARO DEALER documented in this encounter Medications at Time of Discharge Medication Sig Dispensed Refills Start Date End Date ELIDEL 1% CREAM apply to affected 1 stock 1 04/08/2004 areas bid HYDROCODONE/APAP as needed for 30 2 05/25/200510/02 (VICODIN) 5-500MG ORAL breakthrough pain; up TABSIndications: Other to qid unspecified back disorder KETOCONAZOLE (NIZORAL) apply daily 1 99 04/21/2004 0 10/02/2005 2% CREAMIndications: Contact dermatitis and other eczema, due to unspecified cause OMEPRAZOLE (PRILOSEC) 1 tablet daily 0 06/16/2005 02/13/2006 20MG ORAL CAPS Hospital, Clinic, or Other Ordered Dose Route Frequency Start D ate End Date Facility Administered Medication OXYCODONE-ACETAMINOPHEN 1.000 Tablet OR 07/13/2005 07/13/2005 FENTANYL CITRATE 0.05 MG/ML IJ 50.000 mcg IV 07/1307/13/2005 SOLN KETOROLAC TROMETHAMINE 30 MG/ML IJ 30.000 mg IV 0 07/13/2005 07/13/2005 SOLN ZOFRAN 2MG/ML IV SOLN 4.000 mg IV 07/13/200507/2005 METOCLOPRAMIDE HCL 5 MG/ML IJ SOLN 10.000 mg IV 0 07/13/2005 07/13/2005 DEXAMETHASONE SODIUM PHOSPHATE 4 4.000 mg IV 07/200507/13/2005 MG/ML IJ SOLN documented as of this encounter Procedure Notes Clark Jose - 07/13/2005 12:00 AM FARO DEALER DATE OF SURGERY: July 13, 2005 PREOPERATIVE DIAGNOSIS: Right wrist ganglion. POSTOPERATIVE DIAGNOSIS: Right wrist ganglion. SURGEON: Clark Jose MD ANESTHETIC: General OPERATIVE PROCEDURE: Excised cystic ganglion right wrist. OPERATIVE INDICATIONS: The patient presented with a several month history of a painful swelling on the dorsal surface of the right wrist. OPERATIVE TECHNIQUE: After induction of general anesthetic, the patient's right arm was scrubbed, prepped and draped in usual fashion. The arm was exsanguinated and a pneumatic tourniquet inflated to 250 mmHg pressure. The cyst was easily visible on the dorsum of the wrist and a short transverse incision was made overlying this. Subcutaneous tissue was bluntly dissected. The cyst was deep to the extensor tendons. The extensor tendons were then reflected to either side, cyst was very thick-walled and showed a lot of synovial proliferation. It went down to the base of the radius and the cyst and a small amount of wrist capsule were removed. There did not appear to be any significant synovitis in the wrist joint. Specimen was submitted to pathology. The extensor retinaculum had been incised slightly and this was closed with 3-0 Vicryl. Subcutaneous tissue was closed with 3-0 Vicryl. Skin was closed with running subcuticular 4-0 Prolene. The area was then infiltrated with half percent plain Marcaine. A light dressing was fashioned and then a volar splint applied with the wrist in 15 degrees of extension. The arm tourniquet was removed for a total tourniquet time of about 35 minutes. The patient tolerated the procedure well, was sent to recovery room in good condition. There were no intraoperative complications. The attending surgeon, Dr. Jose, was present throughout. lef Dictated: 07/13/2005 13:34:40 Clark Jose MD Transcribed: 07/14/2005 08:17:07 Doc #: [id number] cc: Jose Colin DO, Referring/Primary DO NOT SIGN UNLESS PRESENT FOR PROCEDURE I attest that I was present for and participated in the ma portions of this procedure(s) in compliance with the Health Care Financing Administration Teaching Physician Guidelines. Signed Date [facility] Staff Physician This document was electronically signed by Clark Jose MD on 07/20/2005 08:50:03. 1 Page 1 Patient Name: PADMINI CHOI Visit Date: 07/13/2005 OUTPATIENT OPERATIVE REPORT CONFIDENTIAL MEDICAL RECORD [address] [address] Page 1 Patient: PADMINI CHOI [id number] Date of : 1965 Age: 40Y Visit Date: 07/13/2005 OUTPATIENT OPERATIVE REPORT DEALER documented in this encounter Plan of Treatment Not on filedocumented as of this encounter Procedures Procedure Name Priority Date/Time Associated Diagnosis Comme nts EXCISION MASS FINGER OR HPSDS 07/13/2005 12:40 PM FARO DEALER HAND OR WRIST Case Notes right wrist ganglion cyst ex cision SURGICAL PATH Routine 07/13/2005 12:00 AM FARO DEALER Res ults for this procedure are in the results section . documented in this encounter Results SURGICAL PATH (07/13/2005 12:00 AM FARO DEALER) [facility] gist Method Time Signature 9911 (NOTE) [facility] Final Report Patient Name: PADMINI CHOI Taken: 07/13/2005 Received: 07/13/2005 Reported: 07/14/2005 Physician(s): CLARK JOSE ([id number]) ? Final Pathologic Diagnosis Soft tissue, right wrist, excision ??Ganglion cyst. cab/07/14/2005 Electronically Signed Out By ? Sudha Mahoney MD ([id number]) Procedures/Addenda Clinical History Cyst Gross Description The specimen is received in formalin and is labeled cyst rig ht wrist. ?? The specimen consists of a 1 cm x 0.6 cm x 0.4 cm white fibromembranous cyst that is filled with a scant amount of g elatinous material. ??The specimen is serially sectioned and entirely submitted in one (1) cassette. ??mb/nancy ks/07/14/2005 Microscopic Description Microscopic examination is performed on one (1) slide. cab/07/14/2005 Sudha Mahoney MD ([id number]) Specimen (Source) Anatomical Location Collection Method / Collectio n Time Received Time / Laterality Volume 07/13/2005 07/13/2005 Clark Jose MD LAB_1 Performing Organization Address City/State/ZIP Code Phon e Number [address] [address] [place], [place] [phone] documented in this encounter Visit Diagnoses Not on filedocumented in this encounter Administered Medications Inactive Administered Medications - up to 3 most recent administrations Medication Order MAR Action Action Date Dose Rate Site BUPIVACAINE HCL 0.5 % SOLN Given 07/13/2005 1:19 PM FARO DEALER 6 mL Injection, Starting on Elda 07/13/05 DEXAMETHASONE SODIUM PHOSPHATE 4 MG/ML IJ Given 07/13/2005 3:16 PM FARO DEALER 4 mg Port SOLN 4 mg, Intravenous, Starting on Elda 07/13/05, Until Elda 07/13/05 at 1731 FENTANYL CITRATE 0.05 MG/ML IJ SOLN Given 07/13/2005 2:02 PM FARO DEALER 50 mcg Port 50 mcg, Intravenous, Starting on Elda 07/13/05, Until Elda 07/13/05 at 1731 Given 07/13/2005 1:48 PM FARO DEALER 50 mcg Port KETOROLAC TROMETHAMINE 30 MG/ML IJ SOLN Given 07/13/2005 1:49 PM FARO DEALER 30 mg Port 30 mg, Intravenous, Starting on Elda 07/13/05, Until Elda 07/13/05 at 1731 METOCLOPRAMIDE HCL 5 MG/ML IJ SOLN Given 07/13/2005 3:13 PM FARO DEALER 10 mg Port 10 mg, Intravenous, Starting on Elda 07/13/05, Until Elda 07/13/05 at 1731 OXYCODONE-ACETAMINOPHEN Given 07/13/2005 1:45 PM FARO DEALER 1 Tablet 1 Tablet, Oral, Starting on Elda 07/13/05, Until Elda 07/13/05 at 1731 ZOFRAN 2MG/ML IV SOLN Given 07/13/2005 3:05 PM FARO DEALER 4 mg Port 4 mg, Intravenous, Starting on Elda 07/13/05 documented in this encounter Care Teams Contract Technician Relationship Specialty Start Date End Date Jose Colin DO PCP - General 12/24/03 09/17/08 [address] [place] [address] documented as of this encounter
--- OUTSIDE RECORDS SUMMARY | 2022-01-17 22:24 | XMS_ITS | Encounter Summary ---
:1965 Author Organization [facility] Address [address], [place] [address] Care Team Providers Name Role Phone Jose Colin DO Primary Care Provider [phone] Encounter Details Date Type Department Care Team Description 02/15/2006 Notes/Orders [facility] Brigido Patel, Other Best Lee RN Pre-Operative 205 [facility] [address] [facility] Examination ([place] [address] [place], [place] Dx) [phone] Social History Tobacco Use Types Packs/Day Years Used Date Smoking Tobacco: Never Alcohol Use Standard Drinks/Week Comments Yes 0 (1 standard drink = 0.6 oz pure alcoho l) rarely Sex Assigned at Date Recorded Not on file documented as of this encounter Progress Notes 02/15/2006 11:59 PM CDT >> BRIGIDO BATES Elda Feb 15, 2006 6:18 PM Pt called call center with info that she needs further lab tests for surgery on 02-19-06. Pt will com e into lab tonight and results will be faxed to [facility] Brigido Bates RN >> BRIGIDO BATES Elda Feb 15, 2006 6:16 PM Encounter initiated. documented in this encounter Plan of Treatment Not on filedocumented as of this encounter Procedures Procedure Name Priority Date/Time Associated Comments Diagnosis COMPLETE BLOOD Waiting 02/15/2006 6:38 Other Specified Results for this COUNT-W/DIFF PM CDT Pre-Operative procedure are in Examination the results section. APTT (ACTIVATED PARTIAL Same Day 02/15/2006 6:38 Other Specifie d Results for this THROMBOPLASTIN TIME PM CDT Pre-Operative procedu re are in Examination the results section. SODIUM Waiting 02/15/2006 6:38 Other Specified Results f or this PM CDT Pre-Operative procedure are in Examination the results section. POTASSIUM Waiting 02/15/2006 6:38 Other Specified Results f or this PM CDT Pre-Operative procedure are in Examination the results section. UA WITH MICRO Same Day 02/15/2006 6:38 Other Specified Results for this PM CDT Pre-Operative procedure are in Examination the results section. INR/PROTIME Same Day 02/15/2006 6:38 Other Specified Results f or this PM CDT Pre-Operative procedure are in Examination the results section. documented in this encounter Results (ABNORMAL) UA WITH MICRO (02/15/2006 6:38 PM CDT) [facility] gist Method Time Signature Appr Yellow [facility] Appr Clear [facility] Sp Gr 1.025 1.005 - [facility] 1.03 Leuk Neg SOM [facility] Nitr Neg SOM [facility] pH 5.5 4.5 - 8.0 [facility] Prot Neg SOM mg/dl [facility] Gluc Neg SOM mg/dl [facility] Ket Neg SOM mg/dl [facility] Urob 0.2 0.2 - 1.0 [facility] EU/dl Bili Neg SOM [facility] Blood Sml (A) SOM [facility] RBC'S 0-3 0 - 3 /hpf [facility] WBC'S 0-2 0 - 5 /hpf [facility] Epith, Occ /hpf [facility] Squamous Bact Occ [facility] Casts 0 /lpf [facility] Specimen Anatomical Collection Method Collection Time Receive d Time (Source) Location / / Volume Laterality 02/15/2006 6:38 PM 6 6:39 CDT PM CDT Jose Colin DO LAB_1 Performing Organization Address City/State/ZIP Code Phon e Number [facility] [phone] [facility] [address] [phone] APTT (ACTIVATED PARTIAL THROMBOPLASTIN TIME (02/15/2006 6:38 PM CDT) athologist Signature PTT 27.6 24.0 - 37.0 [facility] sec Comment: Pre-Op [facility], [facility] Specimen Anatomical Collection Method Collection Time Receive d Time (Source) Location / / Volume Laterality 02/15/2006 6:38 PM 6 6:39 CDT PM CDT Jose Colin DO LAB_1 Performing Organization Address [facility]/ZIP [facility] Phon e Number [facility] [phone] [facility] [address] [place] [phone] SODIUM (02/15/2006 6:38 PM CDT) athologist Signature Sodium 140 135 - 145 [facility] mmol/L Comment: Performed at [facility] Specimen Anatomical Collection Method Collection Time Receive d Time (Source) Location / / Volume Laterality 02/15/2006 6:38 PM 6 6:39 CDT PM CDT Jose Colin DO LAB_1 Performing Organization Address [facility] Phon e Number [facility] [phone] [facility] [address] [place] [phone] POTASSIUM (02/15/2006 6:38 PM CDT) athologist Signature Potassium 4.3 3.5 - 5.3 [facility] mmol/L Comment: Performed at [facility] Specimen Anatomical Collection Method Collection Time Receive d Time (Source) Location / / Volume Laterality 02/15/2006 6:38 PM 6 6:39 CDT PM CDT Jose Colin DO LAB_1 Performing Organization Address [facility] Phon e Number [facility] [phone] [facility] [address] [place] [phone] INR/PROTIME (02/15/2006 6:38 PM CDT) athologist Signature Protime 12.9 12.0 - 14.5 [facility] sec Comment: Pre-Op Coumadin No [facility] INR 0.9 [facility] Pre-Op Specimen Anatomical Collection Method Collection Time Receive d Time (Source) Location / / Volume Laterality 02/15/2006 6:38 PM 6 6:39 CDT PM CDT Jose Colin DO LAB_1 Performing Organization Address City/[facility]/ZIP Code Phon e Number [facility] [phone] [facility] [address] [place] [phone] HEMOGRAM/PLTS/DIFF (02/15/2006 6:38 PM CDT) P athologist Signature WBC 7.5 4.0 - 11.0 [facility] k/ul RBC 4.29 4.0 - 5.2 [facility] M/ul Hemoglobin 13.3 12.0 - [facility] 16.0 g/dl HCT 38.7 36.0 - [facility] 46.0 % MCV 90.1 80 - 100 [facility] fl MCH 31.0 26 - 34 pg [facility] MCHC 34.5 32 - 36 % [facility] RDW 11.9 11.5 - [facility] 14.5 % Platelets 250 150 - 450 [facility] k/ul PMN/Band 51 43 - 72 % [facility] Lymph 36 17 - 43 % [facility] Stanly 10 4 - 12 % [facility] Eos 3 0 - 8 % [facility] Baso 1 0 - 1 % [facility] Neutrophil 3.8 1.8 - 7.7 [facility] Absolute k/ul Lymph Absolute 2.7 1.0 - 4.8 [facility] k/ul Stanly Absolute 0.7 0.1 - 0.7 [facility] k/ul Eos Absolute 0.2 0.0 - 0.5 [facility] k/ul Baso Absolute 0.1 0.0 - 0.2 [facility] k/ul Specimen Anatomical Collection Method Collection Time Receive d Time (Source) Location / / Volume Laterality 02/15/2006 6:38 PM 6 6:39 CDT PM CDT Jose Hassanangelitakatherine DO LAB_1 Performing Organization Address City/[facility]/ZIP Code Phon e Number [facility] [phone] [facility] [address] [phone] documented in this encounter Visit Diagnoses Diagnosis Other specified pre-operative examinatio n - Primary documented in this encounter Care Teams [employer] Labourer Relationship Specialty Start Date End Date Jose Colin DO PCP - General 12/24/03 09/17/08 [address] [place] [address] documented as of this encounter
--- OUTSIDE RECORDS SUMMARY | 2022-01-17 22:24 | XMS_ITS | Encounter Summary ---
:1965 Author Organization [facility] Address [address], [place] [address] Care Team Providers Name Role Phone Jose Colin Primary Care Provider [phone] Encounter Details Date Type Department Care Team Description 10/04/2005 Orders Only [facility] Obstetrics and Yun Flynn MD Gynecology [address], [place] [id number] Social History Tobacco Use Types Packs/Day Years Used Date Smoking Tobacco: Never Alcohol Use Standard Drinks/Week Comments Yes 0 (1 standard drink = 0.6 oz pure alcoho l) rarely Sex Assigned at Date Recorded Not on file documented as of this encounter Progress Notes 10/04/2005 11:59 PM CDT Quick Note by: YUN FLYNN on 10/08/05 at 5:22 PM. Please tell patient that this shows some polyps. Almost never cancer in her situation. Can discuss further at next visit. If we discussed h-scope to remove them and/or she knows she wants this done, we can look for a date prior to her next visit, then discuss in detail at visit. Yun Flynn MD documented in this encounter Procedure Notes Zachary Chu - 10/04/2005 12:00 AM CDTAssociated Order(s): ULTRASOUND UNSPECIFIED REFERRING PHYSICIAN: The patient referred by Dr. Yun Flynn of [facility]. TAPE NUMBER: [id number] ULTRASOUND INDICATIONS: [age] -year-old patient last period September 24, 2005. The past 6-8 months has had episodes of prolonged menstrual flow. Enters for evaluation. ULTRASOUND PROCEDURE: Both transabdominal and transvaginal scars are done. Uterus is midline. Very slight anteverted. Uterus shows normal echogenic appearance. No free fluid is seen. Uterus is somewhat elongated measuring 10.2 centimeters longitudinally and 5 x 4.3 centimeters in transverse dimension. On transvaginal scanning there is a small myoma seen. The posterior wall intramural in location on the right side measuring 1.1 x 1.1 x 1 centimeter. No other definite myomas are seen. No specific evidence of adenomyosis noted. The endometrial stripe is seen. There is an echogenic area at the very fundal region consistent with a small polyp seen. To better access this hydrosonography was discussed the patient consented to this. Cervix was visualized. Prepped with betadine and semination catheter placed. The cervix was somewhat patulous and despite various maneuvers we did not get optimal distension, however the hydro did outline 2 polyps. Both are in the fundal region and look to be immediately adjacent to one another. The larger one is 1.2 centimeters x 0.9 x 0.9. The smaller adjacent is 0.7 x 0.6 x 0.4 centimeters. The endometrial lining excluding the polyps is 3.9 millimeters anterior and 2.3 posterior for a total thickness of 6.2 millimeters. The right ovary is seen and is normal size in appearance measuring 2.7 longitudinally and 2.5 x 1.9 transversally. Left ovary is also normal measuring 3.2 longitudinally and 2.9 x 2 transversally. The left show a dominant follicle that is small measuring 1.6 x 1.4 centimeters. ULTRASOUND IMPRESSION: 1. Uterus is slightly elongated. 2. Small myoma seen. 3. Hydrosonography shows 2 polyps adjacent to each other. These were located in the very fundal region. 4. The endometrial lining excluding the polyps is 6.2 millimeters. 5. Both ovaries are normal. PLAN: Dr. Flynn will see written report and the patient will follow-up with her. P cc: Yun Flynn MD SP OB ULTRA, II documented in this encounter Plan of Treatment Not on filedocumented as of this encounter Procedures Procedure Name Priority Date/Time Associated Diagnosis Comme nts UNLISTED ULTRASOUND 10/04/2005 Results for this PROCEDURE procedure are i n the results section . documented in this encounter Results ULTRASOUND UNSPECIFIED (10/04/2005) Anatomical Region Laterality Modality Other Transcriptions Zachary Chu - 10/04/2005 12:00 AM CD TREFERRING PHYSICIAN: The patient referred by Dr. Yun Flynn of [facility]. TAPE NUMBER: [id number] ULTRASOUND INDICATIONS: [age] -year- old patient last period September 24, 2005. The past 6-8 months has had episod es of prolonged menstrual flow. Enters for evaluation. ULTRASOUND PROCEDURE: Both transabdomina l and transvaginal scars are done. Uterus is midline. Very slight anteverte d. Uterus shows normal echogenic appearance. No free fluid is seen. Uteru s is somewhat elongated measuring 10.2 centimeters longitudinally and 5 x 4.3 centimeters in transverse dimension. On transvaginal scanning there is a smal l myoma seen. The posterior wall intramural in location on the right side measuring 1.1 x 1.1 x 1 centimeter. No other definite myomas are seen. No specific evidence of adenomyosis noted. The endometrial stripe is seen. There is an echogenic area at the very fundal region consistent with a small po lyp seen. To better access this hydrosonography was discussed the patien t consented to this. Cervix was visualized. Prepped with beta dine and semination catheter placed. The cervix was somewhat patulous and despite various maneuvers we did not get optimal distension, however the hydro did outline 2 polyps. Both are in the fundal region and look t o be immediately adjacent to one another. The larger one is 1.2 centimete rs x 0.9 x 0.9. The smaller adjacent is 0.7 x 0.6 x 0.4 centimeters. The endometrial lining excluding the polyps is 3.9 millimeters anterior a nd 2.3 posterior for a total thickness of 6.2 millimeters. The right ovary is seen and is normal size in appearance measuring 2.7 longitudinal ly and 2.5 x 1.9 transversally. Left ovary is also normal measuring 3.2 longitudinally and 2.9 x 2 transversally. The left show a dominant follicle that is small measuring 1.6 x 1.4 centimeters. ULTRASOUND IMPRESSION: 1. Uterus is slightly elongated. 2. Small myoma seen. 3. Hydrosonography shows 2 polyps adjac ent to each other. These were located in the very fundal region. 4. The endometrial lining excluding the polyps is 6.2 millimeters. 5. Both ovaries are normal. PLAN: Dr. Flynn will see written repor t and the patient will follow-up with her. P cc: Yun Flynn MD RM SP OB ULTRA, II Yun Flynn MD PROC_2 documented in this encounter Visit Diagnoses Not on filedocumented in this encounter Care Teams Label Printing Machinist Relationship Specialty Start Date End Date Jose Colin DO PCP - General 12/24/03 09/17/08 [address] [place] [address] documented as of this encounter
--- OUTSIDE RECORDS SUMMARY | 2022-01-17 22:24 | XMS_ITS | Encounter Summary ---
:1965 Author Organization [facility] Address [address], [place] [address] Care Team Providers Name Role Phone MoJose medina Jerrell DO Primary Care Provider [phone] Reason for Referral Specialty Diagnoses / Procedures Referred By Contact Refer red To Contact Yun Flynn MD [address] [place] [address] Referral ID Status Reason Start Date Expiration Date Visits Requ ested Visits Authorized Reason for Visit Reason Comments Period Problems Encounter Details Date Type Department Care Team Description 10/02/2005 Office Visit [facility] Obstetrics and Yun Flynn, EX CESSIVE MENSTRUATION (Primary Dx); Gynecology MD PREVENTIVE CARE EXAM [address] [place] [address] Social History Tobacco Use Types Packs/Day Years Used Date Smoking Tobacco: Never Alcohol Use Standard Drinks/Week Comments Yes 0 (1 standard drink = 0.6 oz pure alcoho l) rarely Sex Assigned at Date Recorded Not on file documented as of this encounter Last Filed Vital Signs Vital Sign Reading Time Taken Comments Blood Pressure 114/86 10/02/2005 3:40 PM CDT Pulse - - Temperature - - Respiratory Rate - - Oxygen Saturation - - Inhaled Oxygen Concentration - - Weight 83.5 kg (184 lb) 10/02/2005 3:40 PM CDT Height - - Body Mass Index 32.59 07/13/2005 11:59 AM IDENTITY ACCESS MANAGEMENT ARCHITECT documented in this encounter Progress Notes 10/02/2005 3:40 PM CDT Quick Note by: YUN FLYNN on 10/17/05 at 11:22 AM. This is OK. Scheduling h-scope to remove polyps. Yun Flynn MD Past Surgical History: TONSILLECT PRIM/SEC; UNDER AGE 10 NECK SPINAL FUSION 2000 Comment: c5-c7 L5-S1 microdiskectomy, hemilaminectomy, forami* 09/13 DELIVERY ONLY; 1987 Comment: and tubal ligation EXCISION OF GANGLION WRIST; PRIMARY 07-13-05 Comment: rt OTHER - PROCEDURES 1984 Comment: cryo to uterine cervix Past Medical History: ESOPHAGEAL REFLUX IDIO PERIPH NEURPTHY NOS Comment: right foot Review of patient's family history indicates: Diabetes, Type II Mother Diabetes, Type II Father Coronary Artery Disease Father Hypertension Mother Hypertension Father Other Father Comment: sky's Kidney Disorder Father Cancer, Breast Negative Family Histo Cancer, Ovary Other Comment: first cousin . Yun Flynn - 10/02/2005 12:00 AM CDTS: A 40-year-old para 3-0-0-3, status post tubal ligation, LMP 09-24-05. Seen because of irregular periods that were approximately 6 months. Cycle length has been shortening for about a year and is now about 21 days, however, for the last 6 months pattern consistent with anovulation. Sometimes bleeding episodes are heavy, largest clots are approximately 4 centimeters in diameter. Hemoglobin a year ago was 13.8. Does not get light headed. Pap negative . See history as above. Review Of Systems: Some urinary frequency, some back pain. O: Fair skinned female. Vitals above. Abdomen is protuberant, soft, positive bowel sounds, no hepatosplenomegaly, masses, or tenderness. External genitalia, vagina, cervix visually unremarkable. Uterus difficult to size slightly irregular, firm, mobile, nontender. Adnexa without abnormal masses or tenderness. Rectovaginal exam confirms the above. No intrinsic rectal masses or tenderness. No pedal edema. A: 1) Anovulatory bleeding pattern. P: Check TSH. Patient requesting health maintenance. Labs drawn at the same time. Check cholesterol and glucose. EQUAL OPPORTUNITY COUNSELOR ultrasound with SIS as indicated. Reviewed options. Is willing to use Provera x 12 days attempting to produce a 24 day cycle. These are ordered. Return following the ultrasound. P cc: documented in this encounter Nursing Notes 10/02/2005 3:40 PM CDT >> YUN LFYNN 10/02/2005 4:06 pm pt c/o irreg menses xfew mo. para 3003 bc tubal lig Yun Flynn MD 4:06 PM documented in this encounter Plan of Treatment Scheduled Referrals Name Type Priority Associated Diagnoses Order S chedule PELVIC/EQUAL OPPORTUNITY COUNSELOR ULTRASOUND Referral Routine Excessive Menstruat ion Ordered: 10/02/2005 documented as of this encounter Procedures Procedure Name Priority Date/Time Associated Diagnosis Comme nts PAP TEST, ROUTINE Routine 10/02/2005 12:00 AM Res ults for this CDT procedure are i n the results section. documented in this encounter Results CHOLESTEROL LIPID PANEL FAST >12HR FAST (10/07/2005 8:33 AM CDT) athologist Signature Cholesterol 188 <200 mg/dl [facility] Triglyceride 95 <200 mg/dl [facility] HDL 46 >35 mg/dl [facility] LDL, Calc. 123 mg/dl [facility] Hours Fasting 12 hours [facility] Specimen Anatomical Collection Method Collection Time Receive d Time (Source) Location / / Volume Laterality 10/07/2005 8:33 AM 6 8:34 CDT AM CDT Yun Flynn MD LAB_1 Performing Organization Address City/[facility] Phon e Number [employer] [phone] [facility] [address] [place] [phone] TSH, SENSITIVE (WITH REFLEX) (10/07/2005 8:32 AM CDT) athologist Signature TSH, with 1.80 0.3 - 5.0 [facility] Reflex uIU/ml Specimen Anatomical Collection Method Collection Time Receive d Time (Source) Location / / Volume Laterality 10/07/2005 8:32 AM 6 8:33 CDT AM CDT Yun Flynn MD LAB_1 Performing Organization Address [facility] Phon e Number [employer] [phone] [facility] [address] [place] [phone] (ABNORMAL) GLUCOSE - FASTING > 8 HRS FASTING (V77.1) (10/07/2005 8:31 AM CDT) Analysis Performed At [facility] logist Time Signature Glucose 111 (H) 70 - 100 [facility] mg/dl Hours Fasting 12 hours [facility] Specimen Anatomical Collection Method Collection Time Receive d Time (Source) Location / / Volume Laterality 10/07/2005 8:31 AM 6 8:32 CDT AM CDT Yun Flynn MD LAB_1 Performing Organization Address City/State/ZIP Code Phon e Number [facility] [phone] [facility] [address] [phone] PAP TEST, ROUTINE (10/02/2005 12:00 AM CDT) Component Value Ref Test Analysis Performed At [facility] gist Range Method Time Signature Cytology, Pap (NOTE) [facility] [employer] Cytology Report Patient Name: PADMINI CHOI Taken: 10/02/2005 Received: 10/06/2005 Reported: 10/13/2005 Physician(s): YNU FLYNN ?Source of Specimen Liquid routine Pap, cervical/endocervical: ?Specimen Adequacy ?Satisfactory for evaluation. ??Endocervical component present. ? Final Cytologic Interpretation/Result NEGATIVE FOR INTRAEPITHELIAL LESION OR MALIGNANCY (NILM) ?Other Cytologic Findings Endometrial cells present RECOMMEND clinical correlation Endometrial cells after age 40, particularly out of phase or after menopause, may be associated with benign endometrium, hormon al alterations and less commonly, endometrial/uterine abnormali ties. ? zmka/10/13/2005 Electronically Signed Out By ? Kelly Elmore MD ([id number]) Rakel Valle, ??CT (ASCP) ?Pap Smear History ?Date of Last Menstrual Period: ? 09/22/05 ?Contraceptive History: ?Not Stated/Unknown ?Other Clinical Conditions: ?LAST PAP: N/A HPV reflex testing requested with interpretation of ASCUS ? Specimen (Source) Anatomical Collection Method Collection Time Re ceived Time Location / / Volume Laterality 10/02/2005 10/06/2005 9:58 AM CDT Yun Flynn MD LAB_1 Performing Organization Address City/[facility] Phon e Number [address] [address] [place], [place] [phone] documented in this encounter Visit Diagnoses Diagnosis Excessive or frequent menstruation - Argelia shelly Routine general medical examination at [facility] Routine general medical examination at a [facility] care facility documented in this encounter Care Teams Preschool Teacher Aide Relationship Specialty Start Date End Date Jose Colin DO PCP - General 12/24/03 09/17/08 [address] [place] [address] documented as of this encounter
--- OUTSIDE RECORDS SUMMARY | 2022-01-17 22:24 | XMS_ITS | Encounter Summary ---
:1965 Author Organization [facility] Address [address] [place] [address] Care Team Providers Name Role Phone DixieJose Jrerell BOOGIE Primary Care Provider [phone] Reason for Visit Reason Comments Post Op Exam Encounter Details Date Type Department Care Team Description 11/20/2005 Office Visit [facility] Obstetrics and Yun Varma EN DOMETRIAL POLYP (Primary Dx); Gynecology EXCESSIVE MENSTRUATION [address] [place] [address] Social History Tobacco Use Types Packs/Day Years Used Date Smoking Tobacco: Never Alcohol Use Standard Drinks/Week Comments Yes 0 (1 standard drink = 0.6 oz pure alcoho l) rarely Sex Assigned at Date Recorded Not on file documented as of this encounter Last Filed Vital Signs Vital Sign Reading Time Taken Comments Blood Pressure 102/72 11/20/2005 3:00 PM CDT Pulse 78 11/20/2005 3:00 PM CDT Temperature 37 ??C (98.6 ??F) 11/20/2005 3:00 PM CDT Respiratory Rate 18 11/20/2005 3:00 PM CDT Oxygen Saturation - - Inhaled Oxygen Concentration - - Weight - - Height - - Body Mass Index - - documented in this encounter Progress Notes 11/20/2005 3:00 PM CDT SUBJECTIVE: 40 yr para 2, LNMP 11/19/05 as expected Provera withdrawal. Consistent spotting post surg/, seen postop from hysteroscopy and D and C. Histology consistent with Removal of endometrial polyps . She is feeling well. Minimal discharge, normal bowel and bladder function. OBJECTIVE: BP 102/72 Pulse 78 Temp 98.6 Resp 18 LMP 11/19/2005. IMPRESSION: 1. Satisfactory postop course. PLAN: Follow-up when annual exam due. Carolyn menstrual calendar. Call or come in for abnormal bleeding. Yun Varma MD documented in this encounter Nursing Notes 11/20/2005 3:00 PM CDT >> ALLISON HERRERA 11/20/2005 3:12 pm HAZARDOUS WASTE TECHNICIAN POST OPERATIVE NURSE NOTE Megan Choi presents for post operative follow up. Date of surgery:11/07/05 Procedure: hysteroscopy dc Surgeon: dr varma PAIN ASSESSMENT: Ratin Duration: Not applicable Description: Cramping [place]/sutures removed: NO Fever: NO Is home health nurse involved in pts. care? No Are refills needed on medications today?yes Patient education information given: No no pbolem with urination or bowels since surg MONSE Claros LPN, 11/20/2005, 3:10 PM documented in this encounter Plan of Treatment Not on filedocumented as of this encounter Visit Diagnoses Diagnosis Polyp of corpus uteri - Primary Excessive or frequent menstruation documented in this encounter Care Teams Washhouse Hand Relationship Specialty Start Date End Date Jose Colin DO PCP - General 12/24/03 09/17/08 [address] [place] [address] documented as of this encounter
--- OUTSIDE RECORDS SUMMARY | 2022-01-17 22:24 | XMS_ITS | Encounter Summary ---
:1965 Author Organization [facility] Address [address], [place] [address] Care Team Providers Name Role Phone Jose Colin DO Primary Care Provider [phone] Encounter Details Date Type Department Care Team Description 02/19/2006 Outside Hospital External to [facility] OPER ATIVE REPORT Social History Tobacco Use Types Packs/Day Years Used Date Smoking Tobacco: Never Alcohol Use Standard Drinks/Week Comments Yes 0 (1 standard drink = 0.6 oz pure alcoho l) rarely Sex Assigned at Date Recorded Not on file documented as of this encounter Progress Notes [facility], PROVIDER - 02/19/2006 12:00 AM CDT documented in this encounter Plan of Treatment Not on filedocumented as of this encounter Visit Diagnoses Not on filedocumented in this encounter Care Teams Railroad Worker Relationship Specialty Start Date End Date Jose Colin DO PCP - General 12/24/03 09/17/08 [address] [place] [address] documented as of this encounter
--- OUTSIDE RECORDS SUMMARY | 2022-01-17 22:24 | XMS_ITS | Encounter Summary ---
:1965 Author Organization [facility] Address [address], [place] [address] Care Team Providers Name Role Phone Dixie Jose Jerrell BOOGIE Primary Care Provider [phone] Encounter Details Date Type Department Care Team Description 11/07/2005 Surgery Yun Flynn MD DILATAELEN Perales AND CURETTAGE WITH HYSTEROSCOPY Social History Tobacco Use Types Packs/Day Years Used Date Smoking Tobacco: Never Alcohol Use Standard Drinks/Week Comments Yes 0 (1 standard drink = 0.6 oz pure alcoho l) rarely Sex Assigned at Date Recorded Not on file documented as of this encounter Last Filed Vital Signs Vital Sign Reading Time Taken Comments Blood Pressure 120/78 11/07/2005 7:38 AM CDT Pulse 64 11/07/2005 7:38 AM CDT Temperature - - Respiratory Rate 16 11/07/2005 7:38 AM CDT Oxygen Saturation - - Inhaled [...] row MEDROXYPROGESTERONE ACETATE One tablet 36 3 10/03/19 06 03/22/2006 10 MG OR TABSIndications: orally every day Excessive or frequent for 12 days menstruation OMEPRAZOLE (PRILOSEC) 20MG 1 tablet daily 0 06/1602/13/2006 ORAL CAPS documented as of this encounter Procedure Notes Brandt Jocelyn Rodríguez - 11/07/2005 8:32 PM CDT DATE OF [...] 11/07/2005 20:32:53 Transcribed: 11/07/2005 22:32:42 Doc #: [id number] cc: Yun Flynn MD, Attending Physician Jose [...] 11/07/2005 OUTPATIENT OPERATIVE REPORT [facility] RECORD [address] [address] Page 1 Patient: PADMINI CHOI [facility]: [facility] HPN: [id number] Date of : 1965 Age: 40Y Visit Date: 11/07/2005 OUTPATIENT OPERATIVE REPORT documented in this encounter Miscellaneous Notes OR Nursing - Emmie Burch - 11/07/2005 9:44 AM CDT [facility] Progress Note Patient Name: Padmini Choi Date [...] Results SURGICAL PATH (11/07/2005 12:00 AM CDT) [facility] Method Time Signature 9911 (NOTE) REGIONS Surgical [...] Signed Out By ? Gudelia Jaffe MD ([id number]) Procedures/Addenda Clinical History Excessive bleeding Gross Description [...] Microscopic examination is performed on six slides. walden11/08/2005 Gudelia Jaffe MD ([id number]) Specimen (Source) Anatomical Location Collection Method / Collectio n Time Received Time / Laterality Volume 11/07/2005 11/07/2005 Yun Flynn MD LAB_1 Performing Organization Address City/State/ZIP Code Phon e Number [address] [address] [place], [place] [phone] documented in this encounter Visit Diagnoses Not [...] Sun11/07/05 documented in this encounter Care Teams Freelance Operator Relationship Specialty Start Date End Date Jose Colin DO PCP - General 12/24/03 09/17/08 [address] [place] [address] documented as of this encounter
--- OUTSIDE RECORDS SUMMARY | 2022-01-17 22:24 | XMS_ITS | Encounter Summary ---
:1965 Author [facility] Address [address] [place] [address] Care Team Providers Name Role Phone Jose Colin DO Primary Care Provider [phone] Reason for Visit Reason Onset Date Comments Other 10/23/2005 Encounter Details Date Type Department Care Team Description 10/23/2005 Telephone [facility] Obstetrics [place] Gynecology Yun Flynn MD Other [address] [place], [place] [id number] Social History Tobacco Use Types Packs/Day Years Used Date Smoking Tobacco: Never Alcohol Use Standard Drinks/Week Comments Yes 0 (1 standard drink = 0.6 oz pure alcoho l) rarely Sex Assigned at Date Recorded Not on file documented as of this encounter Nursing Notes 10/23/2005 11:59 PM CDT >> SHALA VANEGAS Mon October 23, 2005 5:08 PM pt surg has been sched for 11/07/05 8 30 [facility] pt will sched preop post- op is sched. Shala Vanegas LPN 5:08 PM pt advised npo and to arrive 1 h b4 sched time. >> CHELSEA PRESLEY Mon October 23, 2005 3:55 PM Pt. is returning Shala abraham. Please call pt. Chelsea Presley documented in this encounter Plan of Treatment Not on filedocumented as of this encounter Visit Diagnoses Not on filedocumented in this encounter Care Teams Item Processor Relationship Specialty Start Date End Date Jose Colin, PCP - General 12/24/03 09/17/08 [address] [place] [address] documented as of this encounter
--- OUTSIDE RECORDS SUMMARY | 2022-01-17 22:24 | XMS_ITS | Encounter Summary ---
:1965 Author [facility] Address [address] [place] [address] Care Team Providers Name Role Phone Jose Stack DO Primary Care Provider [phone] Reason for Visit Reason Onset Date Comments RESULTS, BLOOD TEST, NOS 02/16/2006 Encounter Details Date Type Department Care Team Description 02/16/2006 Telephone [facility] Internal [place], RESULTS, BL OOD TEST, Medicine Jose Allan DO NOS [address] [facility] [address] [place] [address] [place], [place] [phone] [address] Social History Tobacco Use Types Packs/Day Years Used Date Smoking Tobacco: Never Alcohol Use Standard Drinks/Week Comments Yes 0 (1 standard drink = 0.6 oz pure alcoho l) rarely Sex Assigned at Date Recorded Not on file documented as of this encounter Nursing Notes 02/16/2006 11:59 PM CDT >> MICHAEL HALE Mon Feb 19, 2006 9:09 AM As requested the lab values were sent to the pt. >> JOSE STACK Fri Feb 16, 2006 6:54 PM labs are normal - send to where she is having surgery on 02/19/06 Jose Stack DO 6:54 PM 02/16/2006 >> BOB DURAN SunFeb 16, 2006 11:12 AM Pt would like results from labs drawn 02-15-06. documented in this encounter Plan of Treatment Not on filedocumented as of this encounter Visit Diagnoses Not on filedocumented in this encounter Care Teams Laboratory Engineer Relationship Specialty Start Date End Date Jose Stack DO PCP - General 12/24/03 09/17/08 [address] [place] [address] documented as of this encounter
--- OUTSIDE RECORDS SUMMARY | 2022-01-17 22:24 | XMS_ITS | Encounter Summary ---
:1965 Author Organization [facility] [address], [place] [address] Care Team Providers Name Role Phone DungJose gonzalez Primary Care Provider [phone] Encounter Details Date Type Department Care Team Description 08/09/2005 Office Visit [facility] Plastic Aravind Jose MD GANGLION NOS Surgery [address] [place] [address] Social History Tobacco Use Types Packs/Day Years Used Date Smoking Tobacco: Never Alcohol Use Standard Drinks/Week Comments Yes 0 (1 standard drink = 0.6 oz pure alcoho l) rarely Sex Assigned at Date Recorded Not on file documented as of this encounter Progress Notes Aravind Jose - 08/09/2005 12:00 AM CSTSUBJECTIVE: Mrs. Choi is seen about 4 weeks after removal of a dorsal ganglion from her right wrist. She has been wearing a splint now for the entire period of time. She does not complain of much pain. She has noted that when she takes her splint off to shower the wrist does feel fairly stiff. OBJECTIVE: Examination today shows that the scar has healed very well. It is quite thin and fine. There is no swelling under the scar and no evidence of residual or recurrent ganglion. She does have a moderate amount of wrist stiffness. ASSESSMENT AND PLAN: I demonstrated to her some stretching exercises she should do. She should gradually wean herself from her splint. I would give it another month and if she still has a lot of tightness or achiness at that point she should return her to the clinic for review, otherwise should be seen on a p.r.n. basis only. P cc: UP WORKER documented in this encounter Nursing Notes 08/09/2005 2:15 PM CST >> BRIGIDO SLOAN 08/09/2005 2:18 pm Patient Active Problem List: DERMATITIS NOS[692.9] CERVICALGIA[723.1] PLANTAR NERVE LESION[355.6] Current outpatient prescriptions OMEPRAZOLE (PRILOSEC) 20MG ORAL CAPS, 1 tablet daily, Disp: , Rfl: 0 HYDROCODONE/APAP (VICODIN) 5-500MG ORAL TABS, as needed for breakthrough pain; up to qid , Disp: 30,Rfl: 2 KETOCONAZOLE 2 % EX CREA, apply daily, Disp: 1, Rfl: 99 ELIDEL 1 % EX CREA, apply to affected areas bid, Disp: 1 stock, Rfl: 1 Megan Aleyda Choi is a 40 yr old female S/P (R) ganglion cyst removal 07/13/05. sutures removed 07/19/05. states she has some stinging when she uses her fingers too much. she has been wearing her splint./Brigido Sloan LPN documented in this encounter Plan of Treatment Not on filedocumented as of this encounter Visit Diagnoses Diagnosis Ganglion, unspecified documented in this encounter Care Teams Hay Stacker Relationship Specialty Start Date End Date Jose Colin DO PCP - General 12/24/03 09/17/08 [address] [place] [address] documented as of this encounter
--- OUTSIDE RECORDS SUMMARY | 2022-01-17 22:24 | XMS_ITS | Encounter Summary ---
:1965 [facility] Address [address] [place] [address] Care Team Providers Name Role Phone Jose Colin DO Primary Care Provider [phone] Reason for Visit Reason Onset Date Comments QUESTIONS, GENERAL 09/26/2005 Encounter Details Date Type Department Care Team Description 09/26/2005 [facility] Jose Allan DO [address] [place], [place] [address] [place], [place] [phone] [address] Social History Tobacco Use Types Packs/Day Years Used Date Smoking Tobacco: Never Alcohol Use Standard Drinks/Week Comments Yes 0 (1 standard drink = 0.6 oz pure alcoho l) rarely Sex Assigned at Date Recorded Not on file documented as of this encounter Nursing Notes 09/26/2005 11:59 PM CDT >> BRIGIDO ROGERS SunSep 26, 2005 8:55 AM Pt seeing Chiro and wants to know name of surg that was done on her back last yr, reviewed info with pt and questions answered >> ANGELA Newberry Sep 26, 2005 7:10 AM Patient would like to speak to her either provider or nurse. Name of patient's provider: Dr. Colin Summarize the patient's question or concern: Pt called and stated that she needs some information fr om a nurse about her last 2 MRI's and she also needed some information about her back surgery that s he had. Would like a call back to talk with nurse. Angela Fried documented in this encounter Plan of Treatment Not on filedocumented as of this encounter Visit Diagnoses Not on filedocumented in this encounter Care Teams Sole Conditioner Relationship Specialty Start Date End Date Jose Colin, PCP - General 12/24/03 09/17/08 [address] [place] [address] documented as of this encounter
--- OUTSIDE RECORDS SUMMARY | 2022-01-17 22:24 | XMS_ITS | Encounter Summary ---
:1965 [facility] Address [address] [address] Care Team Providers Name Role Phone Unassigned, Provider Primary Care Provider Unavailable Encounter Details Date Type Department Care Team Description 02/19/2006 Outside Hospital External to [facility], Rissa OPE RATIVE REPORT [facility] Social History Tobacco Use Types Packs/Day [...] on filedocumented in this encounter Care Teams Film Recordist Relationship Specialty Start Date End Date Unassigned, Provider PCP - General 09/18/[address] [place] [address] documented as of this encounter
--- OUTSIDE RECORDS SUMMARY | 2022-01-17 22:24 | XMS_ITS | Encounter Summary ---
:1965 Author Organization [facility] Address [address] [address] Care Team Providers Name Role Phone Jose Colin DO Primary Care Provider [phone] Encounter Details Date Type Department Care Team Description 02/24/2006 Outside Hospital External to DISCHARGE SUMMARY/[facility] Social History Tobacco Use Types Packs/Day Years Used Date Smoking Tobacco: Never Alcohol Use Standard Drinks/Week Comments Yes 0 (1 standard drink = 0.6 oz pure alcoho l) rarely Sex Assigned at Date Recorded Not on file documented as of this encounter Progress Notes [facility], PROVIDER - 02/24/2006 12:00 AM CDT documented in this encounter Plan of Treatment Not on filedocumented as of this encounter Visit Diagnoses Not on filedocumented in this encounter Care Teams Superintendent Stations Relationship Specialty Start Date End Date Jose Colin DO PCP - General 12/24/03 09/17/08 [address] [place] [address] documented as of this encounter
--- OUTSIDE RECORDS SUMMARY | 2022-01-17 22:24 | XMS_ITS | Encounter Summary ---
:1965 Author [facility] Address [address] [place] [address] Care Team Providers Name Role Phone Jose Colin DO Primary Care Provider [phone] Reason for Visit Reason Onset Date Comments LAB TESTS, NOS 02/15/2006 Encounter Details Date Type Department Care Team Description 02/15/2006 Telephone Sunshine Alston SIMULATION DEVELOPER TESTS, NOS [address] [facility] - [place], [place] [address] [place] [phone] [place], [place] [address] Social History Tobacco Use Types Packs/Day Years Used Date Smoking Tobacco: Never Alcohol Use Standard Drinks/Week Comments Yes 0 (1 standard drink = 0.6 oz pure alcoho l) rarely Sex Assigned at Date Recorded Not on file documented as of this encounter Nursing Notes 02/15/2006 11:59 PM CDT >> SUNSHINE LANDA Elda Feb 15, 2006 5:55 PM Pt calls in regard to what she can do in order to get her lab work ordered. Pt was seen by Dr. Colin on 02/13/06 and lab work was supposed to have been ordered. Pt just found out that it was not and that it has to be done and faxed to [facility] by tomorrow in order for her to have her surgery on Sunday. Pt states that she cannot take any time off tomorrow to have this done as she does not have any more sick time to use. Pt advised that the only way of getting this drawn tonight would be to go to urgent care. Advised to take whatever paperwork she has with her. Advised that it is not likely that she will get a hard copy of her lab test results as they will have to send this out. Advised to take the fax number wi th her. Also advised to check with the hospital tomorrow by mid-afternoon in order to make sure elver t they received it. Call transferred to [facility]. Sunshine Landa RN documented in this encounter Plan of Treatment Not on filedocumented as of this encounter Visit Diagnoses Not on filedocumented in this encounter Care Teams Blacktop Paver Operator Relationship Specialty Start Date End Date Jose Colin DO PCP - General 12/24/03 09/17/08 [address] [place] [address] documented as of this encounter
--- OUTSIDE RECORDS SUMMARY | 2022-01-17 22:24 | XMS_ITS | Encounter Summary ---
:1965 Author Organization [facility] Address [address] [place] [address] Care Team Providers Name Role Phone DixieJose Jerrell BOOGIE Primary Care Provider [phone] Reason for Visit Reason Comments INFECTION, FINGER swollen and painful x 2 days Encounter Details Date Type Department Care Team Description 08/26/2005 Office Visit [facility] ([place] [address] [place], [place] [address] Social History Tobacco Use Types Packs/Day Years Used Date Smoking Tobacco: Never Alcohol Use Standard Drinks/Week Comments Yes 0 (1 standard drink = 0.6 oz pure alcoho l) rarely Sex Assigned at Date Recorded Not on file documented as of this encounter Last Filed Vital Signs Vital Sign Reading Time Taken Comments Blood Pressure - - Pulse 76 08/26/2005 10:45 AM COMPUTER NUMERICAL CONTROL GRINDER Temperature 36.8 ??C (98.2 ??F) 08/26/2005 10:45 AM COMPUTER NUMERICAL CONTROL GRINDER Respiratory Rate 14 08/26/2005 10:45 AM COMPUTER NUMERICAL CONTROL GRINDER Oxygen Saturation - - Inhaled Oxygen Concentration - - Weight - - Height - - Body Mass Index - - documented in this encounter Progress Notes 08/26/2005 10:45 AM COMPUTER NUMERICAL CONTROL GRINDER This Urgent Care encounter note has been dictated. Enzo Chacon MD 08/26/2005 Enzo Chacon - 08/26/2005 12:00 AM CSTURGENT CARE NOTE HISTORY OF PRESENT ILLNESS: This right-handed patient presents to this clinic with a two-day history of pain and swelling at the distal aspect of the third digit of her right hand. Patient recalls no incident or trauma which proceeded to development of this inflammation which apparently began rather rapidly the day prior to this evaluation. Patient has noted occasional drainage of pus from the periungual area of these digits; however, she has noted no active bleeding. She has noted no similar symptoms in association with any other digit on either hand. She notes no associated muscle weakness, sensory loses or paresthesias. Patient has been lifting the nail plate on this digit in attempt to relieve her pain, without significant success. PAST MEDICAL HISTORY: Medications and allergies reviewed with patient. Patient's current medications include Prilosec. ALLERGY TO ERYTHROMYCIN. Patient denies tobacco use. PHYSICAL EXAMINATION: Vital signs: Temperature 98.2, respiratory rate of 14, pulse 76. Skin: No deficits of turgor or temperature. The distal aspect of the third digit of the right hand (i.e., the area distal to the DIP joint) is moderately erythematous and edematous, as well as moderately tender to palpation. No other areas of dermatitis appreciated on either hand; however, the cuticle areas of practically all fingernail plates are dry and cracked. The nail plates of the third digit of the right hand is slightly lifted from its base. No areas of drainage or bleeding are appreciated, however. Extremities: Moderate edema at the distal aspect of the third digit of the right hand as noted above; no clubbing or cyanosis noted. Patient exhibits full active range of motion of the digits of both hands, though any flexion or extension of the third digit of the right hand considerably exacerbates the patient's pain. Sensation to light touch and distal capillary refill are intact in all digits of both hands. ASSESSMENT: Paronychial infection, third digit of right hand. PLAN: Augmentin 875 one tablet every 12 hours for 10 days, warm moist heat to the distal aspect of the affected digits at least 15 minutes q.i.d., Tylenol/ibuprofen p.r.n. pain. Patient to rest and elevate the right hand whenever possible. Signs of cellulitis and sepsis discussed with patient who verbalizes understanding. Patient verbalizes understanding of and agreement with this plan; questions were answered to her satisfaction. Patient to notify this clinic or her primary care physician should her symptoms fail to improve or worsen. Patient to be reevaluated as necessary and in one week's time if unimproved. P cc: UTER NUMERICAL CONTROL GRINDER documented in this encounter Plan of Treatment Not on filedocumented as of this encounter Visit Diagnoses Diagnosis Onychia and paronychia of finger - Prima ry documented in this encounter Care Teams Financial Management Relationship Specialty Start Date End Date Jose Colin DO PCP - General 12/24/03 09/17/08 [address] [place] [address] documented as of this encounter
--- OUTSIDE RECORDS SUMMARY | 2022-01-17 22:24 | XMS_ITS | Encounter Summary ---
:1965 [facility] Address [address], [place] [address] Care Team Providers Name Role Phone Jose Colin DO Primary Care Provider Reason for Visit Reason Onset Date Comments RESULTS, TEST 10/09/2005 Encounter Details Date Type Department Care Team Description 10/09/2005 Telephone [facility] Obstetrics and Cathy Vanegas LPN RESULTS, TEST Gynecology [address] [place] [address] [place] [address] [phone] Social History Tobacco Use Types Packs/Day Years Used Date Smoking Tobacco: Never Alcohol Use Standard Drinks/Week Comments Yes 0 (1 standard drink = 0.6 oz pure alcoho l) rarely Sex Assigned at Date Recorded Not on file documented as of this encounter Nursing Notes 10/09/2005 11:59 PM CDT >> SHALA Prasad October 09, 2005 3:15 PM pt has appt to f/u u/s this week w/ dr varma. notified will discuss surg date Shala Vanegas LPN 3:15 PM documented in this encounter Plan of Treatment Not on filedocumented as of this encounter Visit Diagnoses Not on filedocumented in this encounter Care Teams Windows Server Administrator Relationship Specialty Start Date End Date Jose Colin DO PCP - General 12/24/03 09/17/[address] [place] [address] documented as of this encounter
--- OUTSIDE RECORDS SUMMARY | 2022-01-17 22:24 | XMS_ITS | Encounter Summary ---
:1965 Author Organization [facility] Address [address] [place] [address] Care Team Providers Name Role Phone DixieJose Jerrell BOOGIE Primary Care Provider [phone] Reason for Visit Reason Comments Follow Up Ultrasound Encounter Details Date Type Department Care Team Description 10/16/2005 Office Visit [facility] Obstetrics and Yun Flynn EN DOMETRIAL POLYP (Primary Dx); Gynecology EXCESSIVE MENSTRUATION [address] [place] [address] Social History Tobacco Use Types Packs/Day Years Used Date Smoking Tobacco: Never Alcohol Use Standard Drinks/Week Comments Yes 0 (1 standard drink = 0.6 oz pure alcoho l) rarely Sex Assigned at Date Recorded Not on file documented as of this encounter Last Filed Vital Signs Vital Sign Reading Time Taken Comments Blood Pressure 104/60 10/16/2005 9:00 AM CDT Pulse 88 10/16/2005 9:00 AM CDT Temperature - - Respiratory Rate - - Oxygen Saturation - - Inhaled Oxygen Concentration - - Weight - - Height - - Body Mass Index - - documented in this encounter Progress Notes 10/16/2005 9:00 AM CDT Addended by: YUN FLYNN on: 10/16/2005 5:46:38 PM Modules accepted: Level of Service Addended by: YUN FLYNN on: 10/16/2005 5:41:31 PM Comment: Addendum done because the charges and diagnosis initially entered for this pt. were for a different ptAlly Flynn Patient Active Problem List: DERMATITIS NOS[692.9] CERVICALGIA[723.1] PLANTAR NERVE LESION[355.6] EXCESSIVE MENSTRUATION[626.2] Past Medical History: ESOPHAGEAL REFLUX IDIO PERIPH [...] Family Histo Bleeding Disorder Negative Family Histo This office note has been dictated. MD Rina Pearson Becky - 10/16/2005 12:00 AM CDTSUBJECTIVE: [age] -year-old para 3 seen to discuss history of abnormal bleeding and review ultrasound 10/04/05. this shows two apparent polyps in the fundus, the larger one about 1.2 x 1 centimeter. Is just finishing Provera which she took to control abnormal bleeding. So far has not had a withdrawal period. See histories above. Please see my note of 10/08/05. O: Fair skinned female. Vitals above. IMPRESSION: 1. Irregular periods. 2. Endometrial polyps. PLAN: Recommended hysteroscopy with possible D C and/or resectoscopic removal of polyps and she is in agreement with that. Has a daughter's graduation November 19 and a trip the to the so if we cannot do this fairly promptly will schedule in late November. Reviewed the nature of hysteroscopy and expectations for postop recovery. P cc: documented in this encounter Nursing Notes 10/16/2005 9:00 AM CDT >> SHALA VANEGAS 10/16/2005 8:56 am pt here to f/u u/s para 3003 bc tubal lig Shala Vanegas LPN 8:53 AM documented in this encounter Plan of Treatment Not on filedocumented as of this encounter Visit Diagnoses Diagnosis Polyp of corpus uteri - Primary Excessive or frequent menstruation documented in this encounter Care Teams Ornamental Metal Worker Relationship Specialty Start Date End Date Jose Colin DO PCP - General 12/24/03 09/17/08 [address] [place] [address] documented as of this encounter
--- OUTSIDE RECORDS SUMMARY | 2022-01-17 22:24 | XMS_ITS | Encounter Summary ---
:1965 Author Organization [facility] Address [address], [place] [address] Care Team Providers Name Role Phone DungJose gonzalez Primary Care Provider [phone] Reason for Visit Reason Onset Date Comments Bleeding Nos 11/14/2005 Encounter Details Date Type Department Care Team Description 11/14/2005 Telephone [facility] Obstetrics and Yun Flynn MD Bleeding Nos Gynecology [address] [place] [address] Social History Tobacco Use Types Packs/Day Years Used Date Smoking Tobacco: Never Alcohol Use Standard Drinks/Week Comments Yes 0 (1 standard drink = 0.6 oz pure alcoho l) rarely Sex Assigned at Date Recorded Not on file documented as of this encounter Nursing Notes 11/14/2005 11:59 PM CDT >> AKBAR Newberry Nov 14, 2005 11:54 AM Pt had hysteroscopy/D&C w/em polyp removal 11-07-05. Pt calls today stating she has had bright,re d bleeding QD since her surg. She states that currently a panty liner is not quite enough but that a maxi pad is much more than needed. Pt states her bleeding is not continuous but occurrs intermittently throughout the day. Pt denies fever,pelvic pain. She does note some mild pelvic discomfort that is relieved w/flatus. Advised pt to cont to monitor bleeding pattern and keep a bleeding calendar. She agrees to call if s he develops pelvic pain,fever,purulent vag d/c or maxi pad saturation in less than 1 hour. Pt givenCAREline #. Pt is also on day 8 of her monthly 12 days of progesterone tx for abnormal bleeding. She will cont w /that as rx'd. Postop appt w/ is 11-20-05. >> ANGELA Newberry Nov 14, 2005 9:17 AM re: med. and bleeding. documented in this encounter Plan of Treatment Not on filedocumented as of this encounter Visit Diagnoses Not on filedocumented in this encounter Care Teams Behavioral Instructor Relationship Specialty Start Date End Date Jose Colin DO PCP - General 12/24/03 09/17/08 [address] [place] [address] documented as of this encounter
--- OUTSIDE RECORDS SUMMARY | 2022-01-17 22:24 | XMS_ITS | Encounter Summary ---
:1965 Author Organization [facility] Address [address], [place] [address] Care Team Providers Name Role Phone DixieJose Jerrell BOOGIE Primary Care Provider [phone] Reason for Visit Reason Comments Foot Pain follow up right foot pain ba ll of her foot, wanting another injection coritisone last done 06/26/05 Encounter Details Date Type Department Care Team Description 08/04/2005 [facility] Visit [facility]per PLAN TAR NERVE LESION Foot and Ankle Surge ry DPNita (Primary Dx) [address] [place] [address] Social History Tobacco Use Types Packs/Day Years Used Date Smoking Tobacco: Never Alcohol Use Standard Drinks/Week Comments Yes 0 (1 standard drink = 0.6 oz pure alcoho l) rarely Sex Assigned at Date Recorded Not on file documented as of this encounter Last Filed Vital Signs Vital Sign Reading Time Taken Comments Blood Pressure 96/64 08/04/2005 2:00 PM URGENT CARE PHYSICIAN Pulse 66 08/04/2005 2:00 PM URGENT CARE PHYSICIAN Temperature 36.6 ??C (97.9 ??F) 08/04/2005 2:00 PM URGENT CARE PHYSICIAN Respiratory Rate - - Oxygen Saturation - - Inhaled Oxygen Concentration - - Weight - - Height - - Body Mass Index - - documented in this encounter Progress Notes 08/04/2005 2:00 PM URGENT CARE PHYSICIAN This office note has been dictated. MARÍA Lau William - 08/04/2005 12:00 AM CSTSUBJECTIVE: Patient presented for followup on right foot pain, suspected neuroma. We had last seen the patient on July 12, 2005. She was given a cortisone injection on June 26, 2005 for the neuroma. She has been getting some significant improvement from the injection but relates that it is not completely resolved and has not obtained the comfort level that she would like to achieve. She wants to get back to regular walking for exercise. She is wearing a good quality walking shoe. Medical records were again reviewed. OBJECTIVE: Examination was unchanged. She is showing some tenderness and positive Emiliano sign in the third interspace of the right foot consistent with a Coello neuroma but it does not seem to be as significant as the previous exam. PLAN: She does want to try to repeat the cortisone injection. We discussed the risks and benefits of repeated injections and their limitations. After thorough discussion, we did administer 1 cc of Xylocaine 2% plain and 1 cc of Kenalog acetate to the third interspace of the right foot. Indicated that it will continue to be working over the next month and then I would not be comfortable again injecting it for another six months. If it continues to be problematic, we can discuss surgical options; otherwise, I recommended that she continue to manage it conservatively with shoe wear, good support, modification of activities and oral antiinflammatory medication as tolerated. All questions were answered. ?? P cc: NT CARE PHYSICIAN documented in this encounter Nursing Notes 08/04/2005 2:00 PM CST >> BRIGIDO MOISE 08/04/2005 2:02 pm Foot and Ankle Rooming Note Patient Status:Revisit same provider Accompanied by: unaccompanied Current Symptoms: pain Pain Quality: Intermittent Pain scale at present moment: 5 Pain scale at worst:8 Duration of foot problem: 8 year(s) Result of an injury?: No Past or current treatment: Injection and takes motrin as needed What would you like from todays visit? Injection Physical Activities: limited due to foot pain Weight: 180 lbs Recent Weight: does not check Hepatitis C: no HIV / AIDS: no Diabetes: no documented in this encounter Plan of Treatment Not on filedocumented as of this encounter Visit Diagnoses Diagnosis Lesion of plantar nerve - Primary documented in this encounter Care Teams Centerless Grinder Set Up Operator Relationship Specialty Start Date End Date Jose Colin DO PCP - General 12/24/03 09/17/08 [address] [place] [address] documented as of this encounter
--- OUTSIDE RECORDS SUMMARY | 2022-01-17 22:24 | XMS_ITS | Encounter Summary ---
:1965 Author Organization [facility] Address [address] [place] [address] Care Team Providers Name Role Phone Jose Colin DO Primary Care Provider [phone] Encounter Details Date Type Department Care Team Description 08/26/2005 Correspondence None Unknown, Physici an CONSENT AND RELEASE [address] [place], [place] [address] (Wo rk) Social History Tobacco Use Types Packs/Day Years Used Date Smoking Tobacco: Never Alcohol Use Standard Drinks/Week Comments Yes 0 (1 standard drink = 0.6 oz pure alcoho l) rarely Sex Assigned at Date Recorded Not on file documented as of this encounter Progress Notes Unknown, Physician - 08/26/2005 12:00 AM COMMODITY SUPERVISOR documented in this encounter Plan of Treatment Not on filedocumented as of this encounter Visit Diagnoses Not on filedocumented in this encounter Care Teams Vehicle Controls Engineer Relationship Specialty Start Date End Date Jose Colin DO PCP - General 12/24/03 09/17/[address] [place] [place] [address] documented as of this encounter
--- OUTSIDE RECORDS SUMMARY | 2022-01-17 22:24 | XMS_ITS | Encounter Summary ---
:1965 Author Organization [facility] Address [address] [place] [address] Care Team Providers Name Role Phone Jose Colin DO Primary Care Provider [phone] Reason for Visit Reason Comments PRE-OP EXAM cyst removal on Rt wrist 07/[address] Jose at [facility] Encounter Details Date Type Department Care Team Description 07/10/2005 Office Visit [facility] [place] Internal [place], PREOP EXAM OTHER SPECIFIED (Primary Dx); Medicine Jose Allan, RADICULAR CYST [address] [facility] [address] [place] [address] [place], [place] [phone] Social History Tobacco Use Types Packs/Day Years Used Date Smoking Tobacco: Never Alcohol Use Standard Drinks/Week Comments Yes 0 (1 standard drink = 0.6 oz pure alcoho l) rarely Sex Assigned at Date Recorded Not on file documented as of this encounter Last Filed Vital Signs Vital Sign Reading Time Taken Comments Blood Pressure 108/64 07/10/2005 3:20 PM ABAP DEVELOPER Pulse 64 07/10/2005 3:20 PM ABAP DEVELOPER Temperature 36.9 ??C (98.4 ??F) 07/10/2005 3:20 PM ABAP DEVELOPER Respiratory Rate 16 07/10/2005 3:20 PM ABAP DEVELOPER Oxygen Saturation - - Inhaled Oxygen Concentration - - Weight 82.6 kg (182 lb) 07/10/2005 3:20 PM ABAP DEVELOPER Height 157.5 cm (5' 2) 07/10/2005 3:20 PM ABAP DEVELOPER Body Mass Index 33.29 07/10/2005 3:20 PM ABAP DEVELOPER documented in this encounter Progress Notes 07/10/2005 3:20 PM ABAP DEVELOPER PRE-OP QUESTIONS: Tightening or pressure in chest with activity: no. Swelling of feet or ankles at times: no. Wakes at night with shortness of breath : no. Able to sleep flat at night: Yes. Troubled by shortness of breath when: Walking on the level: no. Climbing a flight of stairs: no. Sleeping at night: no. Get pains in the calves of the legs when walking: no. Chest ever sound wheezy or whistling: no. Cough, runny nose, or cold symptoms: Now: no In the last two weeks: no Have a chronic cough: no. Family member with serious bleeding problem: no. Taken any aspirin (or products containing aspirin) in the last two weeks: no. Problem with anemia or been told to take iron pills: no. You or any of your relatives ever have a problem with anesthesia: no. SUBJECTIVE: Megan Choi is a 40 yr old female who is here for evaluation for fitness for surgery. She isscheduled for surgery at [facility] on 07/13[facility] Jose. 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* [employer] Social History Main Topics Tobacco Use: Never Alcohol Use: Yes Comment: rarely Past Medical History: ESOPHAGEAL REFLUX IDIO PERIPH NEURPTHY NOS Comment: right foot Past Surgical History: TONSILLECT PRIM/SEC; UNDER AGE 10 NECK SPINAL FUSION 2000 Comment: c5-c7 L5-S1 microdiskectomy, hemilaminectomy, forami* 09/13 DELIVERY ONLY; 1987 Review of patient's family history indicates: Diabetes, Type II Mother Diabetes, Type II Father Coronary Artery Disease Father Hypertension Mother Hypertension Father Other Father Comment: sky's Kidney Disorder Father Current outpatient prescriptions OMEPRAZOLE (PRILOSEC) 20MG ORAL CAPS, 1 tablet daily, Disp: , Rfl: 0 HYDROCODONE/APAP (VICODIN) 5-500MG ORAL TABS, as needed for breakthrough pain; up to qid , Disp: 30, Rfl: 2 KETOCONAZOLE 2 % EX CREA, apply daily, Disp: 1, Rfl: 99 ELIDEL 1 % EX CREA, apply to affected areas bid, Disp: 1 stock, Rfl: 1 PHYSICAL EXAMINATION: The patient appears healthy, in no acute distress and mobile without assistance BP 108/64 Pulse 64 Temp (Src) 98.4 (Oral) Resp 16 Ht 5' 2 (1.58m) Wt 182 lbs (82.6kg) Neck: supple, no lymphadenopathy, no thyromegaly and full range of motion Heart: regular rate and rhythm, normal S1 and S2 without murmur or click Lungs: clear to auscultation, no wheezes or rales Abdomen: Abdomen soft, non-tender without masses or organomegaly Edema: no Neuro: nonfocal motor/sensory exam HEENT: anicteric, EOMI, PERRL, mmm EKG: EKG not indicated for patient's condition and type of surgery as per my indepent review ASSESSMENT/PLAN: 1) Megan Choi is a 40 yr old female is Fit for surgery. No major medical issues for plannedprocedure for a non-cardiac surgical procedure. Recommended that Megan Choi avoid aspirin for 7 days prior to surgery and avoid ibuprofen products for 5 days prior to surgery Jose Colin DO 3:18 PM 07/10/2005 (This chart has been electronically signed) documented in this encounter Nursing Notes 07/10/2005 3:20 PM CST >> PAIGE GEORGE 07/10/2005 3:11 pm Current outpatient prescriptions OMEPRAZOLE (PRILOSEC) 20MG ORAL CAPS, 1 tablet daily, Disp: , Rfl: 0 HYDROCODONE/APAP (VICODIN) 5-500MG ORAL TABS, as needed for breakthrough pain; up to qid , Disp: 30,Rfl: 2 KETOCONAZOLE 2 % EX CREA, apply daily, Disp: 1, Rfl: 99 ELIDEL 1 % EX CREA, apply to affected areas bid, Disp: 1 stock, Rfl: 1 documented in this encounter Plan of Treatment Not on filedocumented as of this encounter Visit Diagnoses Diagnosis Other specified pre-operative examinatio n - Primary Radicular cyst of dental pulp documented in this encounter Care Teams Grocery Clerk Selling Relationship Specialty Start Date End Date Jose Colin DO PCP - General 12/24/03 09/17/08 [address] [place] [address] documented as of this encounter
--- OUTSIDE RECORDS SUMMARY | 2022-01-17 22:24 | XMS_ITS | Encounter Summary ---
:1965 Author Organization [facility] Address [address], [place] [address] Care Team Providers Name Role Phone Unassigned, Provider Primary Care Provider Unavailable Encounter Details Date Type Department Care Team Description 02/19/2006 Outside Hospital External to Rissa Dhillon OPE RATIVE REPORT- [facility] Social History Tobacco Use Types Packs/Day Years [...] on filedocumented in this encounter Care Teams Lead Instructor/Flight Attendant Relationship Specialty Start Date End Date Unassigned, Provider PCP - General 09/18/[address] [place] [address] documented as of this encounter
--- OUTSIDE RECORDS SUMMARY | 2022-01-17 22:24 | XMS_ITS | Encounter Summary ---
:1965 [facility] Address [address] [address] Care Team Providers Name Role Phone Jose Colin DO Primary Care Provider [phone] Reason for Visit Reason Onset Date Comments Sooner Appointment 10/05/2005 Encounter Details Date Type Department Care Team Description 10/05/2005 Telephone [facility] Obstetrics and Yun Flynn MD Sooner Appointment Gynecology [address] [place], [place] [id number] Social History Tobacco Use Types Packs/Day Years Used Date Smoking Tobacco: Never Alcohol Use Standard Drinks/Week Comments Yes 0 (1 standard drink = 0.6 oz pure alcoho l) rarely Sex Assigned at Date Recorded Not on file documented as of this encounter Nursing Notes 10/05/2005 11:59 PM CDT >> RACHEL VANEGAS [facility] Oct 05, 2005 1:35 PM pt given appt. for f/u 10/16/05 8:45 dr avani Vanegas LPN 1:34 PM >> ANGELA MARTINEZ [facility] Oct 05, 2005 8:12 AM Pt. had an U/S appt. 10/04/05. Needs to sched. f/u appt. 1st avail. mid to end of October. Please advi se. documented in this encounter Plan of Treatment Not on filedocumented as of this encounter Visit Diagnoses Not on filedocumented in this encounter Care Teams Set Up Mechanic Automatic Line Relationship Specialty Start Date End Date Jose Colin DO PCP - General 12/24/03 09/17/08 [address] [place] [address] documented as of this encounter
--- OUTSIDE RECORDS SUMMARY | 2022-01-17 22:24 | XMS_ITS | Encounter Summary ---
:1965 Author Organization [facility] Address [address] [place] [address] Care Team Providers Name Role Phone Jose Colin DO Primary Care Provider Reason for Visit Reason Comments PRE-OP EXAM Encounter Details Date Type Department Care Team Description 02/13/[address] [facility] Internal [place] Preoperativ e Examination (Primary Dx); Medicine Jose Allan DO Lumbar Disc Disease; [address] [facility] [address] GERD (Gastroesophageal Reflux Disease); [place] [address] [place], [place] Insomnia [phone] Social History Tobacco Use Types Packs/Day Years Used Date Smoking Tobacco: Never Alcohol Use Standard Drinks/Week Comments Yes 0 (1 standard drink = 0.6 oz pure alcoho l) rarely Sex Assigned at Date Recorded Not on file documented as of this encounter Last Filed Vital Signs Vital Sign Reading Time Taken Comments Blood Pressure 112/68 02/13/2006 4:00 PM CDT Pulse 64 02/13/2006 4:00 PM CDT Temperature - - Respiratory Rate 18 02/13/2006 4:00 PM CDT Oxygen Saturation - - Inhaled Oxygen Concentration - - Weight 87.5 kg (193 lb) 02/13/2006 4:00 PM CDT Height 160 cm (5' 3) 02/13/2006 4:00 PM CDT Body Mass Index 34.19 02/13/2006 4:00 PM CDT documented in this encounter Progress Notes 02/13/2006 4:00 PM CDT PRE-OP QUESTIONS: Tightening or [...] for surgery. She isscheduled for surgery at [facility] on 02/19[facility] Zachary Kirkland. HPI: Assoc signs/symptoms - recently had sx 10/14 for similar, Duration for several years, Location right back pain and Severity severe and constant with radicular symptoms right leg; The rest of the complete ROS are negative. 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* [employer] Social History Main Topics Tobacco Use: Never Alcohol Use: Yes Comment: rarely Drug Use: No Sexual Activity: Yes Partners with: Male Control/Protection: Surgical Past Medical History: ESOPHAGEAL REFLUX UNSPECIFIED HEREDITARY AND IDIOPATHIC PERIPHER* Comment: right foot NORMAL DELIVERY Comment: times [...] acute distress and mobile without assistance BP 112/68 Pulse 64 Resp 18 Ht 5' 3 (1.60m) Wt 193 lbs (87.5kg) Neck: supple, no lymphadenopathy, no thyromegaly and full range of motion Heart: regular rate and rhythm, normal S1 and S2 without murmur or click Lungs: clear to auscultation, no wheezes or rales Abdomen: Abdomen soft, non-tender without masses or organomegaly Edema: no Neuro: nonfocal motor/sensory exam HEENT: anicteric, EOMI, PERRL, mmm EKG: normal sinus rhythm as per my indepent review (10/14) LAB: [facility] 13.2 10/31/2005 ASSESSMENT/PLAN: 1) Megan Choi is a 40 yr old female is fit for surgery. No major medical issues for plannedprocedure for a non-cardiac surgical procedure. Recommended that Megan Choi avoid aspirin for 7 days prior to surgery and avoid ibuprofen products for 5 days prior to surgery Jose Colin, 4:22 PM 02/13/2006 (This chart has been electronically signed) documented in this encounter Plan of Treatment Not on filedocumented as of this encounter Visit Diagnoses Diagnosis Preoperative examination - Primary Preoperative examination, unspecified Lumbar disc disease (HRC) Other and unspecified disc disorder of l umbar region GERD (gastroesophageal reflux disease) Esophageal reflux Insomnia Insomnia, unspecified documented in this encounter Care Teams Roustabout Pusher Relationship Specialty Start Date End Date Jose Colin DO PCP - General 12/24/03 09/17/08 [address] [place] [address] documented as of this encounter
--- OUTSIDE RECORDS SUMMARY | 2022-01-17 22:24 | XMS_ITS | Encounter Summary ---
:1965 Author Organization [facility] Address [address] [place] [address] Care Team Providers Name Role Phone Jose Colin DO Primary Care Provider [phone] Encounter Details Date Type Department Care Team Description 10/31/2005 Notes/Orders [facility] Internal [place], PREOP EXAM OTHER Medicine Jose Allan DO SPECIFIED [facility] [address] [place] [address] [place], [place] [phone] Social History Tobacco Use Types Packs/Day [...] Date/Time Associated Diagnosis Comme nts COMPLETE BLOOD Waiting 10/31/2005 4:11 PM Preop Exam Other Res ults for this COUNT-W/DIFF CDT Specified procedure are i n the results section. DRAW TUBE & HOLD Routine 10/31/2005 4:11 PM Preop Exam Other R esults for this CDT Specified procedure are i n the results section. documented in this encounter Results DRAW TUBE & HOLD (10/31/2005 4:11 PM CDT) [facility] gist Method Time Signature Draw and Hold Specimen [facility] Available Based on Sample Stability Specimen Anatomical Collection Method Collection Time Receive d Time (Source) Location / / Volume Laterality 10/31/2005 4:11 PM 6 4:12 CDT PM CDT Jose Colin DO LAB_[address] [facility] Phon e Number [facility] [phone] [facility] [address] [place] [phone] HEMOGRAM/PLTS/DIFF (10/31/2005 4:11 PM CDT) P athologist Signature WBC 7.7 4.0 - 11.0 [facility] k/ul RBC 4.27 4.0 - 5.2 [facility] M/ul Hemoglobin 13.2 12.0 - [facility] 16.0 g/dl HCT 37.8 36.0 - [facility] 46.0 % MCV 88.5 80 - 100 [facility] fl MCH 30.9 26 - 34 pg [facility] MCHC 34.9 32 - 36 % [facility] RDW 13.7 11.5 - [facility] 14.5 % Platelets 241 150 - 450 [facility] k/ul PMN/Band 56 43 - 72 % [facility] Lymph 34 17 - 43 % [facility] [place] 7 4 - 12 % [facility] Eos 2 0 - 8 % [facility] Baso 1 0 - 1 % [facility] Neutrophil 4.3 1.8 - 7.7 [facility] Absolute k/ul Lymph Absolute 2.7 1.0 - 4.8 [facility] k/ul [place] Absolute 0.6 0.1 - 0.7 [facility] k/ul Eos Absolute 0.2 0.0 - 0.5 [facility] k/ul Baso Absolute 0.1 0.0 - 0.2 [facility] k/ul Specimen Anatomical Collection Method Collection Time Receive d Time (Source) Location / / Volume Laterality 10/31/2005 4:11 PM 6 4:12 CDT PM CDT Jose Allan Nickikatherine DO LAB_1 Performing Organization [address] [facility] Phon e Number [employer] [facility] [phone] [facility] [address] [place] [phone] documented in this encounter Visit Diagnoses Diagnosis Other specified pre-operative examinatio n documented in this encounter Care Teams Tightener Relationship Specialty Start Date End Date Cytrynowicz, Jose D, DO PCP - General 12/24/03 09/17/08 [address] [place] [address] documented as of this encounter
--- OUTSIDE RECORDS SUMMARY | 2022-01-17 22:24 | XMS_ITS | Encounter Summary ---
:1965 Author Organization [facility] Address [address] [place] [address] Care Team Providers Name Role Phone Jose Colin DO Primary Care Provider [phone] Encounter Details Date Type Department Care Team Description 11/20/2005 Correspondence None Unknown, Physici an CONSENT AND RELEASE [address] [place], [place] [address] (Wo rk) Social History Tobacco Use Types Packs/Day Years Used Date Smoking Tobacco: Never Alcohol Use Standard Drinks/Week Comments Yes 0 (1 standard drink = 0.6 oz pure alcoho l) rarely Sex Assigned at Date Recorded Not on file documented as of this encounter Progress Notes Unknown, Physician - 11/20/2005 12:00 AM CDT documented in this encounter Plan of Treatment Not on filedocumented as of this encounter Visit Diagnoses Not on filedocumented in this encounter Care Teams Cardiac Care Nurse Relationship Specialty Start Date End Date Jose Colin DO PCP - General 12/24/03 09/17/[address] [place] [phone] documented as of this encounter
--- OUTSIDE RECORDS SUMMARY | 2022-01-17 22:24 | XMS_ITS | Encounter Summary ---
:1965 Author Organization [facility] Address [address] [place] [address] Care Team Providers Name Role Phone Pipo Colinen Jerrell BOOGIE Primary Care Provider [phone] Encounter Details Date Type Department Care Team Description 07/13/2005 Hospital Encounter [facility] Clark Jose, [facility] [place] [address] Social History Tobacco Use Types Packs/Day Years Used Date Smoking Tobacco: Never Alcohol Use Standard Drinks/Week Comments Yes 0 (1 standard drink = 0.6 oz pure alcoho l) rarely Sex Assigned at Date Recorded Not on file documented as of this encounter Last Filed Vital Signs Vital Sign Reading Time Taken Comments Blood Pressure 111/54 07/13/2005 3:45 PM FISHING CAPTAIN Pulse 72 07/13/2005 3:45 PM FISHING CAPTAIN Temperature 36.6 ??C (97.8 ??F) 07/13/2005 2:15 PM FISHING CAPTAIN Respiratory Rate 16 07/13/2005 3:45 PM FISHING CAPTAIN Oxygen Saturation 93% 07/13/2005 3:45 PM FISHING CAPTAIN Inhaled Oxygen Concentration - - Weight 82.6 kg (182 lb 1.6 oz) 07/13/2005 11:59 AM FISHING CAPTAIN Height 160 cm (5' 3) 07/13/2005 11:59 AM FISHING CAPTAIN Body Mass Index 32.26 07/13/2005 11:59 AM FISHING CAPTAIN documented in this encounter Medications at Time [...] Notes Clark Jose - 07/13/2005 12:00 AM FISHING CAPTAIN DATE OF SURGERY: July 13, 2005 PREOPERATIVE [...] Jose MD Transcribed: 07/14/2005 08:17:07 Doc #: [id number] cc: Jose Colin DO, Referring/Primary DO NOT [...] 07/13/2005 OUTPATIENT OPERATIVE REPORT [facility] RECORD [address] [address] Page 1 Patient: PADMINI CHOI [id number] Date of : 1965 Age: 40Y Visit Date: 07/13/2005 OUTPATIENT OPERATIVE REPORT ING CAPTAIN documented in this encounter Plan of Treatment Not on filedocumented as of this encounter Procedures Procedure Name Priority Date/Time Associated Diagnosis Comme nts EXCISION MASS FINGER OR HPSDS 07/13/2005 12:40 PM FISHING CAPTAIN HAND OR WRIST Case Notes right wrist ganglion cyst ex cision SURGICAL PATH Routine 07/13/2005 12:00 AM FISHING CAPTAIN Res ults for this procedure are in the results section . documented in this encounter Results SURGICAL PATH (07/13/2005 12:00 AM FISHING CAPTAIN) [facility] gist Method Time Signature 9911 (NOTE) [facility] Final Report Patient Name: PADMINI CHOI Taken: 07/13/2005 Received: 07/13/2005 Reported: 07/14/2005 Physician(s): CLARK JOSE ([id number]) ? Final Pathologic Diagnosis Soft tissue, right wrist, excision ??Ganglion cyst. cab/07/14/2005 Electronically Signed Out By ? Sudha Mahoney MD ([id number]) Procedures/Addenda Clinical History Cyst Gross Description The specimen is received in formalin and is labeled cyst rig ht wrist. ?? The specimen consists of a 1 cm x 0.6 cm x 0.4 cm white fibromembranous cyst that is filled with a scant amount of g elatinous material. ??The specimen is serially sectioned and entirely submitted in one (1) cassette. ??mb/nancy ks07/14/2005 Microscopic Description Microscopic examination is performed on one (1) slide. [facility]07/14/2005 Sudha Mahoney MD ([id number]) Specimen (Source) Anatomical Location Collection Method / Collectio n Time Received Time / Laterality Volume 07/13/2005 07/13/2005 Clark Jose MD LAB_1 Performing Organization Address City/State/ZIP Code Phon e Number [address] [address] [place], [place] [phone] documented in this encounter Visit Diagnoses Diagnosis Ganglion of joint documented in this encounter Administered Medications Inactive Administered Medications - up to 3 most recent administrations Medication Order MAR Action Action Date Dose Rate Site BUPIVACAINE HCL 0.5 % SOLN Given 07/13/2005 1:19 PM FISHING CAPTAIN 6 mL Injection, Starting on Elda 07/13/05 DEXAMETHASONE SODIUM PHOSPHATE 4 MG/ML IJ Given 07/13/2005 3:16 PM FISHING CAPTAIN 4 mg Port SOLN 4 mg, Intravenous, Starting on Elda 07/13/05, Until Elda 07/13/05 at 1731 FENTANYL CITRATE 0.05 MG/ML IJ SOLN Given 07/13/2005 2:02 PM FISHING CAPTAIN 50 mcg Port 50 mcg, Intravenous, Starting on Elda 07/13/05, Until Elda 07/13/05 at 1731 Given 07/13/2005 1:48 PM FISHING CAPTAIN 50 mcg Port KETOROLAC TROMETHAMINE 30 MG/ML IJ SOLN Given 07/13/2005 1:49 PM FISHING CAPTAIN 30 mg Port 30 mg, Intravenous, Starting on Elda 07/13/05, Until Elda 07/13/05 at 1731 METOCLOPRAMIDE HCL 5 MG/ML IJ SOLN Given 07/13/2005 3:13 PM FISHING CAPTAIN 10 mg Port 10 mg, Intravenous, Starting on Elda 07/13/05, Until Elda 07/13/05 at 1731 OXYCODONE-ACETAMINOPHEN Given 07/13/2005 1:45 PM FISHING CAPTAIN 1 Tablet 1 Tablet, Oral, Starting on Elda 07/13/05, Until Elda 07/13/05 at 1731 ZOFRAN 2MG/ML IV SOLN Given 07/13/2005 3:05 PM FISHING CAPTAIN 4 mg Port 4 mg, Intravenous, Starting on Elda 07/13/05 documented in this encounter Care Teams Manager Customer Relationship Specialty Start Date End Date Jose Colin DO PCP - General 12/24/03 09/17/08 [address] [place] [address] documented as of this encounter
--- OUTSIDE RECORDS SUMMARY | 2022-01-17 22:25 | XMS_ITS | Encounter Summary ---
:1965 Author Organization [facility] Address [address], [place] [address] Care Team Providers Name Role Phone Jose Colin DO Primary Care Provider [phone] Encounter Details Date Type Department Care Team Description 05/25/2005 Correspondence None Kleber, Provider CONSENT AND RELEASE Social History Tobacco Use Types Packs/Day Years Used Date Smoking Tobacco: Never Alcohol Use Standard Drinks/Week Comments Yes 0 (1 standard drink = 0.6 oz pure alcoho l) rarely Sex Assigned at Date Recorded Not on file documented as of this encounter Progress Notes Nicholas Shahid, Provider - 05/25/2005 12:00 AM CLOCKMAKER documented in this encounter Plan of Treatment Not on filedocumented as of this encounter Visit Diagnoses Not on filedocumented in this encounter Care Teams Multimedia Journalist Relationship Specialty Start Date End Date Jose Colin DO PCP - General 12/24/03 09/17/08 [address] [place] [address] documented as of this encounter
--- OUTSIDE RECORDS SUMMARY | 2022-01-17 22:25 | XMS_ITS | Encounter Summary ---
:1965 Author Organization [facility] Address [address], [place] [address] Care Team Providers Name Role Phone Jose Colin DO Primary Care Provider [phone] Reason for Visit Reason Onset Date Comments RESULTS, TEST 09/26/2004 opened in error Encounter Details Date Type Department Care Team Description 09/23/2004 Telephone [facility] Internal [place], RESULTS, TE ST (opened Medicine Jose Allan DO in error) [address] [facility] [address] [place] [address] [place] [phone] [address] Social History Tobacco Use Types Packs/Day Years Used Date Smoking Tobacco: Never Alcohol Use Standard Drinks/Week Comments Yes 0 (1 standard drink = 0.6 oz pure alcoho l) rarely Sex Assigned at Date Recorded Not on file documented as of this encounter Nursing Notes 09/23/2004 11:59 PM CDT >> MICHAEL HALE Fri Sep 23, 2004 2:15 PM Encounter initiated. documented in this encounter Plan of Treatment Not on filedocumented as of this encounter Visit Diagnoses Not on filedocumented in this encounter Care Teams Document Processing Specialist Relationship Specialty Start Date End Date Jose Colin DO PCP - General 12/24/03 09/17/08 [address] [place] [address] documented as of this encounter
--- OUTSIDE RECORDS SUMMARY | 2022-01-17 22:25 | XMS_ITS | Encounter Summary ---
:1965 Author Organization [facility] Address [address] [address] Care Team Providers Name Role Phone MoJose medina Primary Care Provider [phone] Encounter Details Date Type Department Care Team Description 09/27/2004 - Hospital Encounter [facility] C6Declan Singhann, 09/28/2004 [address] [place] [address] [phone] [address] [place] [address] Social History Tobacco Use Types Packs/Day Years Used Date Smoking Tobacco: Never Alcohol Use Standard Drinks/Week Comments Yes 0 (1 standard drink = 0.6 oz pure alcoho l) rarely Sex Assigned at Date Recorded Not on file documented as of this encounter Discharge Summaries [place] Shelbi Jeong - 09/27/2004 12:00 AM CDT OPERATIVE PROCEDURE: Left L5-S1 hemilaminectomy and microdiscectomy for foraminotomy. HISTORY OF PRESENT ILLNESS: The patient is a 39-year-old female who presented with low-back and left leg pain with associated numbness. On MRI she was noted to have a left paracentral disc herniation with compression of the left S1 nerve root. After a discussion of treatment options, she elected to proceed with surgical intervention. HOSPITAL COURSE: The patient presented on the day of surgery. She presented with a history and physical, indicating her fitness for general anesthesia. Again, Dr Espinosa discussed in detail with patient and her the risks, benefits and alternatives to surgical intervention and informed consent was obtained. She was taken to the OR. The intraoperative course was uneventful. She was taken to the PACU and then to a general care bed. Her postoperative course has been uneventful. Presently the patient is neurologically intact. She reports improvement in the left leg pain. She is afebrile and is urinating without difficulty. She is positive for bowel sounds and is eating and drinking without nausea and vomiting. Her pain is well-managed on p.o. pain medication and her incisionis intact without redness, swelling or drainage. She is stable for discharge home. DISCHARGE INSTRUCTIONS: She is instructed to follow up with Dr Espinosa in 4-6 weeks. She is requested to follow up on the nurse's schedule in 7-10 days to have her marisol removed. She will call [phone] to make those appointments. She is instructed she should have no lifting greater than 5-10 pounds. No repetitive bending or twisting. No jarring or pounding activities. She may slowly increase her activity. She is instructed notto ambulate continuously for greater than 25 minutes until she is seen in followup. She may return to work if she can meet the above activity restrictions. She may resume her normal diet and shower on postoperative day 3. She is requested to call neurosurgery with a temperature of 101 or greater, redness, swelling or drainage from the wound, worsening pain not relieved by the prescription, worsening weakness, numbness or tingling, change in her ability to walk, change in her bowel or bladder function or positional headache that gets better or worse with standing or sitting. DISCHARGE MEDICATIONS: She will resume her preoperative medications, as taken at home and will notify the prescribing provider of any questions she has. 1. Colace 100 mg 1 p.o. twice a day #60, no refills. 2. Percocet 1-2 p.o. every 4 to 6 hours as needed, #40, no refills. 3. Valium 5 mg 1 p.o. every 8 hours x 3 days. Then as needed for muscle spasms. #30, no refills. The patient was counseled regarding the use of narcotics and Valium in regards to operating a motorvehicle. CONDITION ON DISCHARGE IS STABLE. [facility] Dictated: 09/28/2004 08:00:35 Staff: Transcribed: 10/03/2004 08:21:09 Shelbi Arauz CNP Doc #: [id number] cc: Jose Colin DO Referring Esmer Espinosa MD, Attending 1 Page 1 Patient Name: PADMINI CHOI DISCHARGE SUMMARY CONFIDENTIAL MEDICAL RECORD [address] [address] Page 1 Patient: PADMINI CHOI Location: [facility] HPN: [id number] Admit Date: 09/27/2004 Date of : 1965 Discharge Date: 09/28/2004 DISCHARGE SUMMARY documented in this encounter Medications at Time of Discharge Medication Sig Dispensed Refills Start Date End Date ACIPHEX 20MG ORAL Take 1 tablet by 30 99 05/09/2004 0 02/15/2005 TABSIndications: Brachial mouth once a day neuritis or radiculitis NOS ELIDEL 1% CREAM apply to affected 1 stock 1 04/08/2004 areas bid HYDROCODONE/APAP Take one (1) or two 30 2 06/20/2004 05/25/2005 (VICODIN) 5-500MG ORAL (2) tablets by mouth TABSIndications: Sciatica every 4 to 6 hours (HRC) as needed for pain. Max of 8 tabs per day. KETOCONAZOLE (NIZORAL) 2% apply daily 1 99 4 10/02/2005 CREAMIndications: Contact dermatitis and other eczema, due to unspecified cause NAPROXEN (NAPROSYN) 500MG one po bid 60 5 04/08/2004 05/25/2005 ORAL TABS documented as of this encounter Procedure Notes Esmer Espinosa - 09/27/2004 12:00 AM CDT DATE OF SURGERY: 09/27/2004 STAFF SURGEON: Esmer Espinosa MD PREOPERATIVE DIAGNOSIS: 1. Left lower extremity radiculopathy. 2. Weakness in gastrocnemius and extensor hallucis longus. 3. Herniated nucleus pulposus at L5-S1. POSTOPERATIVE DIAGNOSIS: 1. Left lower extremity radiculopathy. 2. Weakness in gastrocnemius and extensor hallucis longus. 3. Herniated nucleus pulposus at L5-S1. NAME OF OPERATION: 1. Left L5-S1 hemilaminectomy, microdiskectomy. 2. Left L5-S1 foraminotomy. 3. Use of operating room microscope. INDICATIONS: The patient is a 40-year-old female who presents with medically intractable radicular pain down her left lower extremity as well as weakness in her extensor hallucis longus and gastrocnemius. She has an MRI which shows a disk herniation at this level compressing the exiting nerve roots. Treatment options were discussed with the patient, who elected to proceed with a surgical decompression of the nerve root. Risks and benefits were thoroughly discussed and understood. PROCEDURE: After obtaining informed consent, the patient was brought to the operating room, intubated under general endotracheal anesthesia. She was turned into the prone position on the Jarett laminectomy frame with all pressure points well-padded. She was prepped and draped in the usual sterile fashion. A pre- incisional x-ray was obtained to identify the L5-S1 space using a marker needle. We then made an incision from the L5 to the S1 spinous process, which was carried sharply down to the level of the fascia. The fascia was opened in 1 layer with monopolar electrocautery and a subperiosteal dissection was undertaken to expose the onur lamina on the left at L5 and S1. We then brought in the operating room microscope for the remainder of the microdissection. We used the Midas drill to remove theinferior portion of L5 and the superior portion of S1 lamina down to the level of the ligamentum. The ligamentum was carefully from the underlying thecal sac and removed revealing the intact sac and nerve root. At this point, we could see pressure from the underlying disk at L5-S1 deforming the nerve root. We entered the disk space with an 11 blade after carefully protecting the nerve root and sac out of the field of dissection with a D'Errico retractor. The disk space was quite hard and calcified with an extremely degenerative level. We were able to develop a window through the calcification through which we removed copious amounts of degenerative disk material which gave quite a bit ofspace of relaxation to the nerve root once removed. The disk and foramen were well cleaned using a co mbination of small blunt hook, long blunt hooks, pituitary down and back biting curettes as well as where appropriate small Kerrison. Once this area was well- decompressed and the nerve root no longer had any pressure on it we copiously irrigated the incision with antibiotic containing saline and achieved hemostasis with bipolar electrocautery and proceeded to close. Closure was performed using 0 Vicryl to approximate the fascia, inverted 2-0 Vicryl to approximate the subcutaneous tissues and staplesto approximate the skin edges. Sponge and needle counts were correct prior to closure x 2. Sterile dressings were placed. Patient tolerated the procedure well and was turned into the supine position onthe operating room gurney, extubated, and found to be at her neurological baseline with no deficits. kda Dictated: 10/04/2004 07:09:44 Transcribed: 10/04/2004 08:01:33 Staff: Esmer Espinosa MD Doc #: [id number] cc: Jose Colin DO, referring DO NOT SIGN UNLESS PRESENT FOR PROCEDURE I attest that I was present for and participated in the ma portions of this procedure(s) in compliance with the Health Care Financing Administration Teaching Physician Guidelines. Signed Date [facility] Staff Physician 1 Page 2 Patient Name: PADMINI CHOI OPERATIVE REPORT CONFIDENTIAL MEDICAL RECORD [address] [address] Page 1 Patient: PADMINI CHOI Location: [facility] HPN: [id number] Admit Date: 09/27/2004 Date of : 1965 Discharge Date: 09/28/2004 OPERATIVE REPORT documented in this encounter Plan of Treatment Not on filedocumented as of this encounter Procedures Procedure Name Priority Date/Time Associated Diagnosis Comme nts L-SPINE 1 VIEW, Routine 09/27/2004 2:35 PM Result s for this PORTABLE CDT procedure are i n the results section. documented in this encounter Results L-SPINE 1 VIEW- PORTABLE (09/27/2004 2:35 PM CDT) [facility] gist Method Time Signature Portable PORTABLE LUMBAR SPINE 09/27/04, 1320 HOURS: [facility] Lumbar One INDICATIONS: ??L5-S1 hemilaminectomy. RADIOLOGY View FINDINGS: ??Single cross table lateral view in OR shows meta l instrument posterior to S1. The alignment of the lumbar spin e is normal. PORTABLE LUMBAR SPINE 09/27/04, 1430 HOURS: FINDINGS: ??Single cross table lateral view done in OR shows the tip of needle overlying the posterior aspect of L5-S1 disc. Anatomical Region Laterality Modality Other Specimen (Source) Anatomical Collection Method Collection Time Re ceived Time Location / / Volume Laterality 09/27/2004 2:35 PM CDT Narrative 09/30/2004 7:50 AM CDT PORT X-TABLE L-SPINE DONE IN THE OR ROOM 3 TIME 1430 Esmer Espinosa MD RAD PORTABLE/RH documented in this encounter Visit Diagnoses Not on filedocumented in this encounter Care Teams Snowblower Mechanic Relationship Specialty Start Date End Date Jose Colin DO PCP - General 12/24/03 09/17/[address] [place] [address] documented as of this encounter
--- OUTSIDE RECORDS SUMMARY | 2022-01-17 22:25 | XMS_ITS | Encounter Summary ---
:1965 Author Organization [facility] Address [address], [place] [address] Care Team Providers Name Role Phone Jose Colin DO Primary Care Provider Reason for Visit Reason Onset Date Comments ERRONEOUS ENTRY 06/16/2005 Encounter Details Date Type Department Care Team Description 06/16/2005 Telephone [facility] Jose Witt, ERRONEOUS ENTRY [address] [place] [address] [address] [facility] [phone] [place] [phone] (Wo rk) Social History Tobacco Use Types Packs/Day Years Used Date Smoking Tobacco: Never Alcohol Use Standard Drinks/Week Comments Yes 0 (1 standard drink = 0.6 oz pure alcoho l) rarely Sex Assigned at Date Recorded Not on file documented as of this encounter Nursing Notes 06/16/2005 11:59 PM COMMERCIAL LOAN ADMINISTRATOR >> MELISSA OBREGON Fri Jun 16, 2005 2:05 PM Encounter initiated. documented in this encounter Plan of Treatment Not on filedocumented as of this encounter Visit Diagnoses Not on filedocumented in this encounter Care Teams Process Laboratory Specialist Relationship Specialty Start Date End Date Jose Colin, DO PCP - General 12/24/03 09/17/08 [address] [place] [address] documented as of this encounter
--- OUTSIDE RECORDS SUMMARY | 2022-01-17 22:25 | XMS_ITS | Encounter Summary ---
:1965 Author Organization [facility] Address [address] [place] [address] Care Team Providers Name Role Phone Jose Colin DO Primary Care Provider [phone] Encounter Details Date Type Department Care Team Description 07/15/2004 Correspondence None Unknown, Physici an Regions Consent and Release [address] [place], [place] [address] (Wo rk) Social History Tobacco Use Types Packs/Day Years Used Date Smoking Tobacco: Never Alcohol Use Standard Drinks/Week Comments Not Asked 0 (1 standard drink = 0.6 oz pure alcoho l) Sex Assigned at Date Recorded Not on file documented as of this encounter Progress Notes Unknown, Physician - 07/15/2004 12:00 AM JOB SETTER documented in this encounter Plan of Treatment Not on filedocumented as of this encounter Visit Diagnoses Not on filedocumented in this encounter Care Teams Correctional Officer Relationship Specialty Start Date End Date Jose Colin DO PCP - General 12/24/03 09/17/[address] [place] [place] [address] documented as of this encounter
--- OUTSIDE RECORDS SUMMARY | 2022-01-17 22:25 | XMS_ITS | Encounter Summary ---
:1965 Author Organization [facility] Address [address] [place] [address] Care Team Providers Name Role Phone Jose Colin DO Primary Care Provider [phone] Reason for Visit Reason Comments PRE-OP EXAM Encounter Details Date Type Department Care Team Description 09/22/2004 Office Visit [facility] Internal [place], PREOP EXAM OTHER SPECIFIED (Primary Dx); Medicine Jose Allan DO DISC DIS NEC/NOS-LUMBAR 205 [facility] [address] [place] [address] [place], [place] [phone] [address] Social History Tobacco Use Types Packs/Day Years Used Date Smoking Tobacco: Never Alcohol Use Standard Drinks/Week Comments Yes 0 (1 standard drink = 0.6 oz pure alcoho l) rarely Sex Assigned at Date Recorded Not on file documented as of this encounter Last Filed Vital Signs Vital Sign Reading Time Taken Comments Blood Pressure 116/62 09/22/2004 4:19 PM CDT Pulse 72 09/22/2004 4:19 PM CDT Temperature - - Respiratory Rate 20 09/22/2004 4:19 PM CDT Oxygen Saturation - - Inhaled Oxygen Concentration - - Weight 76.7 kg (169 lb) 09/22/2004 4:19 PM CDT Height - - Body Mass Index 30.91 09/02/2002 2:00 PM SYNCHRONIZER documented in this encounter Patient Instructions Patient Ijbygkdcvaza06/14/2005 4:00 PM CDT Stop by Lab for testing documented in this encounter Progress Notes 09/22/2004 4:00 PM CDT PRE-OP QUESTIONS: Tightening or pressure in chest with activity: no. Swelling of feet or ankles at times: no. Wakes at night with shortness of breath : no. Able to sleep flat at night: No-back. Troubled by shortness of breath when: Walking [...] anesthesia: no. SUBJECTIVE: Megan Choi is a 39 yr old female who is here for evaluation for fitness for surgery. She is scheduled for surgery at [facility] on 09/27/[address] Espinosa. 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* [employer] Social History Main Topics Tobacco Use: Never Alcohol Use: Yes Comment: rarely Review of patient's past medical history indicates: REVIEWED-NONE NOTED Review of patient's past surgical history indicates: REMOVAL OF TONSILS DELIVERY 1988 NECK SPINAL FUSION 2000 Comment: c5-c7 Review of patient's family history indicates: Diabetes, Type II Mother Diabetes, Type II Father Coronary Artery Disease Father Hypertension Mother Hypertension Father Other Father Comment: sky's Kidney Disorder Father Current outpatient prescriptions: HYDROCODONE/APAP (VICODIN) 5-500MG ORAL TABS,Take one (1) or two (2) tablets by mouth every 4 to 6 hours as needed for pain. Max of 8 tabs per day.,Disp: 30,Rfl: 2 ACIPHEX 20MG ORAL TABS,Take 1 tablet by mouth once a day,Disp: 30,Rfl: 99 KETOCONAZOLE (NIZORAL) 2% CREAM,apply daily,Disp: 1,Rfl: 99 NAPROXEN (NAPROSYN) 500MG ORAL TABS,one po bid,Disp: 60,Rfl: 5 ELIDEL 1% CREAM,apply to affected areas bid,Disp: 1 stock,Rfl: 1 PHYSICAL EXAMINATION: The patient appears healthy, in no acute distress and mobile without assistance BP 116/62 Pulse 72 Resp 20 Wt 169 lbs (76.7kg) Neck: supple, no lymphadenopathy, no thyromegaly and full range of motion Heart: regular rate and rhythm, normal S1 and S2 without murmur or click Lungs: clear to auscultation, no wheezes, no crackles Abdomen: Abdomen soft, non-tender. BS normal. No masses, organomegaly Edema: no Neuro: nonfocal motor/sensory exam HEENT: anicteric, EOMI, PERRL, mmm EKG: EKG not indicated for patient's condition and type of surgery LAB: labs pending ASSESSMENT/PLAN: 1) Megan Choi is a 39 yr old female is Fit for surgery. No major medical issues for planned procedure for a low risk surgical procedure. Recommended that Megan Choi avoid aspirin for 7 days prior to surgery and avoid ibuprofen products for 5 days prior to surgery Jose Colin, DO 4:30 PM 09/22/2004 (This chart has been electronically signed) documented in this encounter Plan of Treatment Not on filedocumented as of this encounter Procedures Procedure Name Priority Date/Time Associated Diagnosis Comme nts COMPLETE BLOOD Routine 09/22/2004 4:50 PM Preop Exam Other Res ults for this COUNT-W/DIFF CDT Specified procedure are in Disc Dis the results Nec/Nos-Lumbar section. documented in this encounter Results HEMOGRAM/PLTS/DIFF (09/22/2004 4:50 PM CDT) P athologist Signature WBC 9.3 4.0 - 11.0 [facility] k/ul RBC 4.35 4.0 - 5.2 [facility] M/ul Hemoglobin 13.8 12.0 - [facility] 16.0 g/dl HCT 41.0 36.0 - [facility] 46.0 % MCV 94.1 80 - 100 [facility] fl MCH 31.8 26 - 34 pg [facility] MCHC 33.8 32 - 36 % [facility] RDW 13.4 11.5 - [facility] 14.5 % Platelets 237 150 - 450 [facility] k/ul PMN/Band 63 43 - 72 % [facility] Lymph 28 17 - 43 % [facility] Iosco 8 4 - 12 % [facility] Eos 1 0 - 8 % [facility] Baso 1 0 - 1 % [facility] Neutrophil 5.9 1.8 - 7.7 [facility] Absolute k/ul Lymph Absolute 2.6 1.0 - 4.8 [facility] k/ul [place]osco Absolute 0.7 0.1 - 0.7 [facility] k/ul Eos Absolute 0.1 0.0 - 0.5 [facility] k/ul Baso Absolute 0.1 0.0 - 0.2 [facility] k/ul Specimen Anatomical Collection Method Collection Time Receive d Time (Source) Location / / Volume Laterality 09/22/2004 4:50 PM 5 4:51 CDT PM CDT Jose Colin DO LAB_1 Performing Organization Address City/State/[facility] Code Phon e Number [facility] [phone] [facility] [address] [address] documented in this encounter Visit Diagnoses Diagnosis Other specified pre-operative examinatio n - Primary Other and unspecified disc disorder of l umbar region (HRC) Other and unspecified disc disorder of l umbar region documented in this encounter Care Teams Test Engineer Nuclear Equipment Relationship Specialty Start Date End Date Jose Colin DO PCP - General 12/24/03 09/17/[address] [place] [address] documented as of this encounter
--- OUTSIDE RECORDS SUMMARY | 2022-01-17 22:25 | XMS_ITS | Encounter Summary ---
:1965 Author Organization [facility] Address [address] [address] Care Team Providers Name Role Phone Unassigned, Provider Primary Care Provider Unavailable Encounter Details Date Type Department Care Team Description 08/23/2004 [facility] Pain Same Day Gavin Justice MD [facility] [address] [place] [address] [place] [address] [phone] Social History Tobacco Use Types Packs/Day Years Used Date Smoking Tobacco: Never Smokeless Tobacco: Never Alcohol Use Standard Drinks/Week Comments Yes 0 (1 standard drink = 0.6 oz pure alcoho l) rarely Sex Assigned at Date Recorded Not on file documented as of this encounter Procedure Notes Jerome Garg - 08/23/2004 12:00 AM CYCLE CONSULTANT DATE OF SURGERY: August 23, 2004. STAFF SURGEON: Gavin Justice MD. PREOPERATIVE DIAGNOSES: 1. Lumbar degenerative disc disease. 2. Lumbar radiculopathy. POSTOPERATIVE DIAGNOSES: 1. Lumbar degenerative disc disease. 2. Lumbar radiculopathy NAME OF OPERATION: Left sided L5, S1, epidural steroid injection. INDICATIONS: The patient is a 39-year-old woman with long standing history of low back pain. She presented with numbness in left lower leg. She underwent lumbar epidural steroid injection on July 26, 2004. The injection did not seem to alleviate the numbness in leg significantly. The patient now returns for and repeat injection. There has been no other interval changes. PLAN: I plan to repeat lumbar epidural steroid injection on this visit. Since the patient did not respond to the injection and the numbness in the leg persists, I recommend the patient to see a specialist if present injection fail to improve the symptoms. After reviewing the risks, benefits, and options, the patient agreed to proceed with the procedure. PROCEDURE: The patient was taken to the fluoroscopy suite and placed in the prone position. Anatomic landmarks for L5-S1 vertebral space to the left side of the midline was identified on fluoroscope and sterilely prepped and draped. The local skin and subcutaneous tissue were anesthetized with 1% plain lidocaine. A 20 gauge 3-1/2 Tuohy needle was advanced in the epidural space with loss of resistance to preservative-free normal saline as the endpoint. The needle position in the epidural space was further confirmed with Omnipaque 300. A total volume of 6 cc including 3 cc of 0.25% bupivacaine, 80 mg of Depo-Medrol, and 1 cc of preservative-free normal saline were injected incrementally after negative aspiration for blood or cerebrospinal fluid. The needle was removed intact. The patient tolerated the procedure well. There were some tension to pressure sensations in the left leg on point injection, which subsided in the recovery area. Otherwise, there were no apparent complications. The patient ambulated to the recovery area after injection. She did not develop any adverse reaction from the injection. After the appropriate recovery time, she was discharged in stable condition. The patient is going to call us back in 1-2 weeks. Whether the patient needs to be seen by orthopedic surgery or neurosurgery will depend on how the patient responds to present injection. If the numbness in the left leg persists after injection, I would strongly recommend the patient to see a specialist. shiv Dictated: 08/23/2004 15:39:02 Gavin Justice MD Transcribed: 08/24/2004 07:37:56 Doc #: [id number] cc: Jose Colin, DO, Referring DO NOT SIGN UNLESS PRESENT FOR PROCEDURE I attest that I was present for and participated in the ma portions of this procedure(s) in compliance with the Health Care Financing Administration Teaching Physician Guidelines. Signed Date [facility] Staff Physician 1 Page 2 Patient Name: PADMINI CHOI Visit Date: 08/23/2004 OUTPATIENT OPERATIVE REPORT [facility] [address] [phone] Page 1 Patient: PADMINI CHOI Location: PAIN HPN: [id number] Date of : 1965 Visit Date: 08/23/2004 OUTPATIENT OPERATIVE REPORT documented in this encounter Plan of Treatment Not on filedocumented as of this encounter Visit Diagnoses Not on filedocumented in this encounter Care Teams Support Technician Relationship Specialty Start Date End Date Unassigned, Provider PCP - General 09/18/[address] [place] [address] documented as of this encounter
--- OUTSIDE RECORDS SUMMARY | 2022-01-17 22:25 | XMS_ITS | Encounter Summary ---
:1965 Author Organization [facility] Address [address] [place] [address] Care Team Providers Name Role Phone Unassigned, Provider Primary Care Provider Unavailable Encounter Details Date Type Department Care Team Description 07/26/2004 [facility] Gavin Justice MD [address] [place] [phone] (Wo rk) Social History Tobacco Use Types Packs/Day Years Used Date Smoking Tobacco: Never Smokeless Tobacco: Never Alcohol Use Standard Drinks/Week Comments Yes 0 (1 standard drink = 0.6 oz pure alcoho l) rarely Sex Assigned at Date Recorded Not on file documented as of this encounter Procedure Notes Jerome Garg - 07/26/2004 12:00 AM SECONDARY ART TEACHER DATE OF SURGERY: 07/26/2004 STAFF SURGEON: Gavin Justice MD PREOPERATIVE DIAGNOSIS 1. Lumbar degenerative disc disease. 2. Lumbar radiculopathy. POSTOPERATIVE DIAGNOSIS 1. Lumbar degenerative disc disease. 2. Lumbar radiculopathy. NAME OF OPERATION: Left-sided L5-S1 epidural steroid injection. HISTORY: The patient is a 39-year-old woman with a long-standing history of low back pain. The low back pain has been getting worse in the past 5-6 weeks. Recently, the patient noticed some tingling and numbness in the left foot and lateral aspect of the lower leg. Meanwhile, low back pain is associated with sharp pain radiating down to the left foot. The patient states that standing and walking or climbing stairs will aggravate the pain, and lying down alleviate this pain. The patient denies any abnormality with bowel or bladder movement at the present time. The patient underwent an MRI of the lumbar spine which demonstrated disc herniation at the L5-S1 level with a left-sided S1 nerve impingement. Therefore, she is referred to [facility] for evaluation for epidural steroid injection. PAST MEDICAL HISTORY: History of heartburn. ALLERGIES: SHE IS ALLERGIC TO ERYTHROMYCIN. MEDICATIONS: She is currently taking Aciphex and Vicodin and naproxen. PHYSICAL EXAMINATION: On physical examination, straight-leg raising test was positive on the left side. There is mild tenderness in the left SI joint as well. PLAN: The patient's symptoms and signs are consistent with MRI findings. Therefore, I plan to perform a left-sided L5-S1 epidural steroid injection. After reviewing the risks, benefits, and options, the patient agreed to proceed with the procedure. PROCEDURE: The patient was taken to the fluoroscopy suite and placed in the prone position. Anatomic landmarks for L5-S1 vertebral space to the left side of the midline was identified on fluoroscope and sterilely prepped and draped. The local skin and subcutaneous tissue was anesthetized with 1% plain lidocaine. A 20 gauge 31/2 Tuohy needle was advanced in the epidural space with loss of resistance to preservative-free normal saline as the endpoint. The needle position in the epidural space was further confirmed with Omnipaque 300. A total volume of 6 cc including 3 cc of 0.25% bupivacaine, 80 mg of Depo-Medrol, and 1 cc of preservative-free normal saline was injected incrementally after negative aspiration for blood or cerebrospinal fluid. The needle was removed intact. The patient tolerated the procedure well. There were no apparently complications. The patient ambulated to the recovery area after the procedure. She did not develop any adverse reaction from the injection. After the appropriate recovery time she was discharged in stable condition. She is to follow up in 4 weeks for reevaluation and possible repeat injection. [email or web address] Dictated: 07/26/2004 13:38:28 Gavin Justice MD Transcribed: 07/26/2004 14:26:15 Doc #: [id number] cc: Jose Colin, , Primary/Referring DO NOT SIGN UNLESS PRESENT FOR PROCEDURE I attest that I was present for and participated in the ma portions of this procedure(s) in compliance with the Health Care Financing Administration Teaching Physician Guidelines. Signed Date [facility] Staff Physician 1 Page 2 Patient Name: PADMINI CHOI Visit Date: 07/26/2004 OUTPATIENT OPERATIVE REPORT [facility] [address] [phone] Page 1 Patient: PADMINI CHOI [id number] Date of : 1965 Visit Date: 07/26/2004 OUTPATIENT OPERATIVE REPORT documented in this encounter Plan of Treatment Not on filedocumented as of this encounter Visit Diagnoses Not on filedocumented in this encounter Care Teams Signal Maintainer Helper Relationship Specialty Start Date End Date Unassigned, Provider PCP - General 09/18/[address] [place] [address] documented as of this encounter
--- OUTSIDE RECORDS SUMMARY | 2022-01-17 22:25 | XMS_ITS | Encounter Summary ---
:1965 Author Organization [facility] Address [address] [place] [address] Care Team Providers Name Role Phone Jose Stack DO Primary Care Provider [phone] Reason for Referral Specialty Diagnoses / Procedures Referred By Contact Refer red To Contact Jose Stack DO [address] [employer] [facility] [place] [place], [place] [address]48 Referral ID Status Reason Start Date Expiration Date Visits Requ ested Visits Authorized CAMP COUNSELOR Specialty Diagnoses / Procedures Referred By Contact Refer red To Contact Jose Stack DO [address] [place], [place] [address] 56-[address]120 Referral ID Status Reason Start Date Expiration Date Visits Requ ested Visits Authorized CAMP COUNSELOR Reason for Visit Reason Comments BACK PAIN f/u visit Encounter Details Date Type Department Care Team Description 06/16/2005 Office Visit [facility] Internal [place], PAIN IN MUSTAFA B (Primary Dx); Medicine Jose Allan DO VACCINE FOR TETANUS + DIPHTHERIA; 205 [facility] [address] [facility] NOS; [place] [address] [place] FX FOOT BONE NOS-CLOSED [phone] [address] Social History Tobacco Use Types Packs/Day Years Used Date Smoking Tobacco: Never Alcohol Use Standard Drinks/Week Comments Yes 0 (1 standard drink = 0.6 oz pure alcoho l) rarely Sex Assigned at Date Recorded Not on file documented as of this encounter Last Filed Vital Signs Vital Sign Reading Time Taken Comments Blood Pressure 112/74 06/16/2005 1:47 PM DAY CAMP COUNSELOR Pulse 60 06/16/2005 1:47 PM DAY CAMP COUNSELOR Temperature - - Respiratory Rate 16 06/16/2005 1:47 PM DAY CAMP COUNSELOR Oxygen Saturation - - Inhaled Oxygen Concentration - - Weight 82.1 kg (181 lb) 06/16/2005 1:47 PM DAY CAMP COUNSELOR Height 160 cm (5' 3) 06/16/2005 1:47 PM DAY CAMP COUNSELOR Body Mass Index 32.06 06/16/2005 1:47 PM DAY CAMP COUNSELOR documented in this encounter Patient Instructions Patient Yoikjajyyluw28/06/2006 1:20 PM DAY CAMP COUNSELOR PLEASE STOP AT CHECK OUT DESK BEFORE LEAVING THE CLINIC Schedule Appointment with the Specialist using the phone number provided Stop by Radiology for X-ray documented in this encounter Progress Notes 06/16/2005 1:20 PM DAY CAMP COUNSELOR Quick Note by: JOSE STACK on 06/20/05 at 1:55 PM. has appt with PODIATRY on 06/26/05 Jose Stack DO 1:55 PM 06/20/2005 OFFICE NOTE: Megan Choi is a 40 yr old female who presents for follow up on a few issues. BP 112/74 Pulse 60 Resp 16 Ht 5' 3 (1.60m) Wt 181 lbs (82.1kg) Body Mass Index is 32.07 kg/(m^2). right wrist - ganglion cyst right foot - subf painful to palp ASSESSMENT/PLAN: 1) back and leg pain - MRI reviewed with the patient; no acute surgical issues; she reports that the pain has subsided somewhat 2) remote foot injury - this summer; discussed at [facility]; may be causing back/leg pain; will get xrays and have her make appt with PODIATRY 3) ganglion cyst - painful with use; refer to GEN SURG Total time spent with the patient today was 26 minutes. Of this time, 20 minutes were spent counseling her on the above issues and coordinating her care. Jose Stack DO 2:04 PM 06/16/2005 documented in this encounter Procedure Notes Sofia Lilly - 06/16/2005 12:00 AM CSTAssociated Order(s): FOOT 3 VIEWS (STANDARD) CLINICAL DATA: PAIN AFTER INJURY SIX MONTHS AGO. EXAMINATION: RIGHT FOOT, 06/16/05: No comparison. FINDINGS: There is an old un-united fracture at the base of the distal phalanx of the fifth toe along its medial aspect. This is an intraarticular fracture. Please correlate with the site of the patient's pain. No other abnormalities are noted. Sofia Lilly MD A cc: Jose Stack DO Radiology SP CAMP COUNSELOR documented in this encounter Plan of Treatment Scheduled Referrals Name Type Priority Associated Diagnoses Order S chedule PODIATRY Referral Routine Pain In Limb Ordered: 2005 SURGERY Referral Routine Ganglion Nos Ordered: 2005 documented as of this encounter Procedures Procedure Name Priority Date/Time Associated Diagnosis Comme nts RADEX FOOT COMPL Routine 06/16/2005 Pain In Limb Results for this MINIMUM 3 VIEWS Fx Foot Bone procedure ar e in the Nos-Closed results section . documented in this encounter Results FOOT 3 VIEWS (STANDARD) (06/16/2005) Anatomical Region Laterality Modality Other Transcriptions Sofia Lilly - 06/16/2005 12:00 AM CS TCLINICAL DATA: PAIN AFTER INJURY SIX MONTHS AGO. EXAMINATION: RIGHT FOOT, 06/16/05: No comp arison. FINDINGS: There is an old un-united frac ture at the base of the distal phalanx of the fifth toe along its media l aspect. This is an intraarticular fracture. Please correlat e with the site of the patient's pain. No other abnormalities are noted. Sofia Lilly MD A cc: Jose Stack DO Radiology SP Jose Stack DO RAD_1 documented in this encounter Visit Diagnoses Diagnosis Pain in limb - Primary Need for Td vaccine Need for prophylactic vaccination with t etanus-diphtheria (Td) Ganglion, unspecified Closed fracture of unspecified bone(s) o f foot (except toes) documented in this encounter Care Teams Map Mounter Relationship Specialty Start Date End Date Jose Stack DO PCP - General 7/15/04 4/9/09 [address] [place] [address] documented as of this encounter
--- OUTSIDE RECORDS SUMMARY | 2022-01-17 22:25 | XMS_ITS | Encounter Summary ---
:1965 [facility] Address [address] [place] [address] Care Team Providers Name Role Phone Jose Stack DO Primary Care Provider [phone] Reason for Visit Reason Onset Date Comments Refill 02/15/2005 Encounter Details Date Type Department Care Team Description 02/15/2005 Refill [facility] Jose Stack, DO Refill [address] [facility] [address] [place] [address] [place], [place] [phone] (Wo rk) Social History Tobacco Use Types Packs/Day Years Used Date Smoking Tobacco: Never Alcohol Use Standard Drinks/Week Comments Yes 0 (1 standard drink = 0.6 oz pure alcoho l) rarely Sex Assigned at Date Recorded Not on file documented as of this encounter Nursing Notes 02/15/2005 11:59 PM CDT Approved Prescriptions: Disp Refills ACIPHEX 20MG ORAL TABS 30 7 Sig: Take 1 tablet by mouth once a day Authorizing Provider: JOSE STACK Ordering User: RANDALL AVILA >> VERONICA REYES Wed Feb 15, 2005 2:10 PM Last fill on 3.05.05 for a quantity of 30 documented in this encounter Plan of Treatment Not on filedocumented as of this encounter Visit Diagnoses Diagnosis Brachial neuritis or radiculitis NOS Brachial neuritis or radiculitis nos documented in this encounter Care Teams Guard Lieutenant Relationship Specialty Start Date End Date Jose Stack DO PCP - General 12/24/03 09/17/08 [address] [place] [address] documented as of this encounter
--- OUTSIDE RECORDS SUMMARY | 2022-01-17 22:25 | XMS_ITS | Encounter Summary ---
:1965 Author Organization [facility] Address [address], [place] [address] Care Team Providers Name Role Phone DungJose gonzalez DO Primary Care Provider [phone] Encounter Details Date Type Department Care Team Description 07/04/2005 Office Visit [facility] Aravind Jose, [facility] [place] SYMPPietro Plastic Surgery [facility] [address] Social History Tobacco Use Types Packs/Day Years Used Date Smoking Tobacco: Never Alcohol Use Standard Drinks/Week Comments Yes 0 (1 standard drink = 0.6 oz pure alcoho l) rarely Sex Assigned at Date Recorded Not on file documented as of this encounter Last Filed Vital Signs Vital Sign Reading Time Taken Comments Blood Pressure 125/79 07/04/2005 2:15 PM TAILOR WOMEN'S GARMENT ALTERATION Pulse 77 07/04/2005 2:15 PM TAILOR WOMEN'S GARMENT ALTERATION Temperature - - Respiratory Rate 18 07/04/2005 2:15 PM TAILOR WOMEN'S GARMENT ALTERATION Oxygen Saturation - - Inhaled Oxygen Concentration - - Weight - - Height - - Body Mass Index - - documented in this encounter Progress Notes Jim Woods - 07/04/2005 12:00 AM CSTPlastic Surgery Fellow Brody Woods doing a clinic note dictation for staff Dr. Jose. Mrs. Choi is a 41-year-old female who comes to us with concerns of a painful lump on the dorsum of her right wrist. She states this mass has been there for approximately 6-12 months. Over the last 2-3 months, this has become more painful and has been progressive in nature. 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 She states over the course of the day her pain becomes worse and becomes more of a throbbing and localized tenderness. Over the last several weeks, this has become worse to the point where it is causing her significant discomfort. She notes no problems with sensory disturbances in her hand or other motor function problems. She does not note that the cyst changes through the course of the day, i.e., gets larger or smaller. She is otherwise healthy. She recently had a low back surgery approximately one year ago and has had previous cortisone injections for that. She also recently had a broken fifth metatarsal for which she has recently received a cortisone injection by the top dyeing machine tender. MEDICATIONS: Medications she takes at this time including Prilosec. ALLERGIES: She has no allergies. EXAMINATION: On examination, she is alert and oriented. She is a pleasant woman. On the dorsum of her right wrist, she does have a mass which is estimated at about 1.5 cm in diameter. It does not appear to change very much does appear to be fairly well discrete. It is tender to her with manipulation. Sensory exam is intact to all digits on the right hand. Hung's test shows a flow with ulnar and radial arteries. Tinel's is negative as is Phalen's and she also has a negative Yolanda's test. She has full range of motion with her wrist with supination, pronation, eversion, inversion as well as flexion, extension. She has no basilar discomfort on the thumb MCP. Motor exam is intact with all fingers. Compared to her left hand, she does not have the same mass present. ASSESSMENT: A 40-year-old woman with apparent right dorsal wrist ganglion. PLAN: We discussed with this woman several options of care including expectant management with placing her in a cock-up wrist brace for a period of time to see if the pain resolves. We did describe to her that this would most likely help with the pain, however, would not guarantee that it would change the mass at all. Also, she could have a cortisone injection at this time. She is somewhat hesitant for this because of the numerous cortisone injections she has had and feels that they do not work. The third option would be surgery. We did discuss with her the surgical procedure and what it would entail as well as her postop recovery. Because of her discomfort and willingness to have this issue resolved, she would like to proceed with surgery. At this point, we will go ahead and schedule her for surgery for excision of the dorsal wrist ganglion. Will have this taken care of a the earliest convenience for the patient. P cc: OR WOMEN'S GARMENT ALTERATION documented in this encounter Nursing Notes 07/04/2005 2:15 PM CST >> ENRIQUETA BRYANT 07/04/2005 2:33 pm Patient Active Problem List: DERMATITIS NOS[692.9] CERVICALGIA[723.1] PLANTAR NERVE LESION[355.6] Megan Choi is a 40 yr old female arrives by self w/ c/o of rt wrist ganglion cyst times months. no change in size or pain. Also c/o's of rt foot pain, s/p rt 5th toe fx per pt months ago that she is still having issues from. Sees Weigher Packing re: this problem. documented in this encounter Plan of Treatment Scheduled Referrals Name Type Priority Associated Diagnoses Order S chedule SURGERY Referral Routine Ganglion Nos Ordered: 2005 documented as of this encounter Visit Diagnoses Diagnosis Other symptoms referable to forearm join t documented in this encounter Care Teams Food And Beverage Coordinator Relationship Specialty Start Date End Date Jose Colin DO PCP - General 12/24/03 09/17/08 [address] [place] [address] documented as of this encounter
--- OUTSIDE RECORDS SUMMARY | 2022-01-17 22:25 | XMS_ITS | Encounter Summary ---
:1965 Author Organization [facility] Address [address] [address] Care Team Providers Name Role Phone DungJose gonzalez Primary Care Provider [phone] Encounter Details Date Type Department Care Team Description 06/01/2005 Orders Only [facility] Unknown, Physician [facility]. [address] [place] [address] [place] [address] [phone] (Wo rk) Social History Tobacco Use Types Packs/Day Years Used Date Smoking Tobacco: Never Alcohol Use Standard Drinks/Week Comments Yes 0 (1 standard drink = 0.6 oz pure alcoho l) rarely Sex Assigned at Date Recorded Not on file documented as of this encounter Procedure Notes Staci Cohen - 06/01/2005 12:00 AM CSTAssociated Order(s): MRI SC YMAN documented in this encounter Plan of Treatment Not on filedocumented as of this encounter Procedures Procedure Name Priority Date/Time Associated Diagnosis Comme nts MRI SC 06/01/2005 12:00 AM Results for this HANDYMAN procedure are i n the results section. MAGNETIC SOURCE 06/01/2005 Results for this IMAGING procedure are i n the results section. documented in this encounter Results MRI SC (06/01/2005 12:00 AM HANDYMAN) Anatomical Region Laterality Modality Other Narrative 06/01/2005 12:00 AM HANDYMAN This result has an attachment that is no t available. Ordered by an unspecified provider. Transcriptions Staci Cohen - 06/01/2005 12:[address] Physician Unknown DUMMY/OTHER/AR documented in this encounter Visit Diagnoses Not on filedocumented in this encounter Care Teams Steam Finisher Relationship Specialty Start Date End Date Jose Colin DO PCP - General 12/24/03 09/17/08 [address] [place] [address] documented as of this encounter
--- OUTSIDE RECORDS SUMMARY | 2022-01-17 22:25 | XMS_ITS | Encounter Summary ---
:1965 Author Organization [facility] Address [address] [place] [address] Care Team Providers Name Role Phone Jose Colin DO Primary Care Provider [phone] Reason for Visit Reason Comments TOE PAIN--ED right foot jamed her toes in to the door 3rd , 4th 5th toe Encounter Details Date Type Department Care Team Description 06/26/2005 Office Visit [facility] H[facility]yin Draper PLAN TAR NERVE LESION Foot and Ankle Surge ry DPM [address] [place] [address] Social History Tobacco Use Types Packs/Day Years Used Date Smoking Tobacco: Never Alcohol Use Standard Drinks/Week Comments Yes 0 (1 standard drink = 0.6 oz pure alcoho l) rarely Sex Assigned at Date Recorded Not on file documented as of this encounter Last Filed Vital Signs Vital Sign Reading Time Taken Comments Blood Pressure 121/71 06/26/2005 8:58 AM COOLER OPERATOR Pulse 84 06/26/2005 8:58 AM COOLER OPERATOR Temperature 36.2 ??C (97.2 ??F) 06/26/2005 8:58 AM COOLER OPERATOR Respiratory Rate - - Oxygen Saturation - - Inhaled Oxygen Concentration - - Weight - - Height - - Body Mass Index - - documented in this encounter Progress Notes 06/26/2005 9:10 AM COOLER OPERATOR This office note has been dictated. MARÍA Lau William - 06/26/2005 12:00 AM CSTSUBJECTIVE: Patient was asked to be seen by Dr. Colin for problems she is having with the right foot. She injured this foot last summer when she jammed it on a doorframe. She relates that the foot stayed bruised for several months, so we tried to reduce her activity level and take ibuprofen but has continued to have problems in the distal lateral aspect of the right foot. Relates that it does seem to be related to the amount of time she is on her feet. She relates that her normal job is 50% on her feet, but when she is home around the weekend she has to be more active and the foot is more problematic. She presented in a good quality athletic shoe. She relates no chronic history of foot problems. Medicals records were reviewed; appears to be in generally good health. ALLERGIES TO ERYTHROMYCIN. OBJECTIVE: Vital signs were unremarkable. Recent x-rays do indicate that she did have a fracture of the fifth digit. No other bony pathology related. Her x-rays were not available for review. Patient is indicating there is discomfort to involved the third, fourth and fifth digits. Relates it frequently it feels like there is a mass in the ball of the right foot. Examination today shows no obvious swelling or erythema. She is generally tender across the third, fourth and fifth metatarsophalangeal joints, both dorsally and plantarly. No specific tenderness to the digits. No pain or crepitus on range of motion in the metatarsophalangeal joints. Maximum tenderness seems to be in the third interspace, but no specific mass or positive Emiliano sign was identified. Her pedal pulses were palpable. Seems to have adequate ankle and subtalar joint range of motion. Muscle testing, tone and turgor also seemed to be unremarkable. 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 PLAN: Recommended that we try a localized cortisone in the third interspace where she is maximally tender and see how she responds over the next several weeks. We explained that it could be both diagnostic and therapeutic. Patient seemed to be comfortable with this approach. Consent was given. A 1 cc of Xylocaine 2% plain and 1 cc of Kenalog acetate was injected in the distal third interspace. She is to keep a reduced activity level; wear a good, firm athletic shoe. Follow up in three weeks on her progress. ?? A cc: Jose Colin DO ER OPERATOR documented in this encounter Plan of Treatment Not on filedocumented as of this encounter Visit Diagnoses Diagnosis Lesion of plantar nerve documented in this encounter Care Teams Bit Welder Relationship Specialty Start Date End Date Jose Colin, PCP - General 12/24/03 09/17/08 [address] [place] [address] documented as of this encounter
--- OUTSIDE RECORDS SUMMARY | 2022-01-17 22:25 | XMS_ITS | Encounter Summary ---
:1965 Author Organization [facility] Address [address], [place] [address] Care Team Providers Name Role Phone Jose Colin DO Primary Care Provider [phone] Encounter Details Date Type Department Care Team Description 11/23/2004 Therapy External to Yeyo Colin DO [address] [place] [address] (Wo rk) Social History Tobacco Use Types Packs/Day Years Used Date Smoking Tobacco: Never Alcohol Use Standard Drinks/Week Comments Yes 0 (1 standard drink = 0.6 oz pure alcoho l) rarely Sex Assigned at Date Recorded Not on file documented as of this encounter Progress Notes Jose Colin - 11/23/2004 12:00 AM CDT documented in this encounter Plan of Treatment Not on filedocumented as of this encounter Visit Diagnoses Not on filedocumented in this encounter Care Teams Flat Screen Worker Relationship Specialty Start Date End Date Jose Colin DO PCP - General 12/24/03 09/17/08 [address] [place] [address] documented as of this encounter
--- OUTSIDE RECORDS SUMMARY | 2022-01-17 22:25 | XMS_ITS | Encounter Summary ---
:1965 Author Organization [facility] Address [address], [place] [address] Care Team Providers Name Role Phone Jose Colin DO Primary Care Provider [phone] Encounter Details Date Type Department Care Team Description 11/14/2004 Correspondence External to Jose Colin OW-UP EVALUATION0/ D, DO [facility] [address] [place] [address] (Wo rk) Social History Tobacco Use Types Packs/Day Years Used Date Smoking Tobacco: Never Alcohol Use Standard Drinks/Week Comments Yes 0 (1 standard drink = 0.6 oz pure alcoho l) rarely Sex Assigned at Date Recorded Not on file documented as of this encounter Progress Notes Jose Colin - 11/14/2004 12:00 AM CDT documented in this encounter Plan of Treatment Not on filedocumented as of this encounter Visit Diagnoses Not on filedocumented in this encounter Care Teams Cube Cutter Relationship Specialty Start Date End Date Jose Colin, DO PCP - General 12/24/03 09/17/08 [address] [place] [address] documented as of this encounter
--- OUTSIDE RECORDS SUMMARY | 2022-01-17 22:25 | XMS_ITS | Encounter Summary ---
:1965 Author Organization [facility] Address [address] [place] [address] Care Team Providers Name Role Phone Jose Colin DO Primary Care Provider [phone] Encounter Details Date Type Department Care Team Description 09/21/2004 Orders Only [facility] Unknown, Physician [address] [facility] [address] [place] [address] [place] [address] [phone] (Wo rk) Social History Tobacco Use Types Packs/Day Years Used Date Smoking Tobacco: Never Alcohol Use Standard Drinks/Week Comments Not Asked 0 (1 standard drink = 0.6 oz pure alcoho l) Sex Assigned at Date Recorded Not on file documented as of this encounter Procedure Notes Unknown, Physician - 09/21/2004 12:00 AM CDTAssociated Order(s): MRI SC documented in this encounter Plan of Treatment Not on filedocumented as of this encounter Procedures Procedure Name Priority Date/Time Associated Diagnosis Comme nts MRI SC 09/21/2004 12:00 AM Results for this CDT procedure are i n the results section. MAGNETIC SOURCE 09/21/2004 Results for this IMAGING procedure are i n the results section. documented in this encounter Results MRI SC (09/21/2004 12:00 AM CDT) Anatomical Region Laterality Modality Other Narrative 09/21/2004 12:00 AM CDT This result has an attachment that is no t available. Ordered by an unspecified provider. Transcriptions Unknown, Physician - 09/21/2004 12:00 AM CDT Physician Unknown DUMMY/OTHER/AR documented in this encounter Visit Diagnoses Not on filedocumented in this encounter Care Teams Registered Nurse Relationship Specialty Start Date End Date Jose Colin, DO PCP - General 12/24/03 09/17/08 [address] [place] [address] documented as of this encounter
--- OUTSIDE RECORDS SUMMARY | 2022-01-17 22:25 | XMS_ITS | Encounter Summary ---
:1965 Author Organization [facility] Address [address] [place] [address] Care Team Providers Name Role Phone Jose Stack DO Primary Care Provider [phone] Reason for Referral Specialty Diagnoses / Procedures Referred By Contact Refer red To Contact Jose Stack DO [address] [facility] [place] [place] [address] Referral ID Status Reason Start Date Expiration Date Visits Requ ested Visits Authorized Reason for Visit Reason Onset Date Comments REFERRAL REQUEST 11/15/2004 Encounter Details Date Type Department Care Team Description 11/15/2004 Telephone [facility] Internal [facility] Jose Witt REFERRAL REQUEST [address] [place], [place] [id number] [address] [facility] [phone] [place] [address] (Wo rk) Social History Tobacco Use Types Packs/Day Years Used Date Smoking Tobacco: Never Alcohol Use Standard Drinks/Week Comments Yes 0 (1 standard drink = 0.6 oz pure alcoho l) rarely Sex Assigned at Date Recorded Not on file documented as of this encounter Nursing Notes 11/15/2004 11:59 PM CDT >> BRIGIDO BURCH SunNov 15, 2004 2:24 PM Pt notified of referral, will be returning to [facility] # [facility], will fax refer ral Brigido Burch RN >> JOSE STACK jeramie Nov 15, 2004 2:05 PM PT ordered Jose Stack DO 2:05 PM 11/15/2004 >> HARVINDER Newberry Nov 15, 2004 11:06 AM Pt had back surgery in September and was told to get referral for physical therapy, 1-3 visits for exerc ise and strengthening. [facility] on voice mail. Pt work # has changed so a different name will be on v oice mail. documented in this encounter Plan of Treatment Scheduled Referrals Name Type Priority Associated Diagnoses Order S chedule PHYSICAL THERAPY Referral Routine Backache Nos Ordered: documented as of this encounter Visit Diagnoses Diagnosis Backache, unspecified - Primary documented in this encounter Care Teams Upholstery Restorer Relationship Specialty Start Date End Date Jose Stack DO PCP - General 12/24/03 09/17/08 [address] [place] [address] documented as of this encounter
--- OUTSIDE RECORDS SUMMARY | 2022-01-17 22:25 | XMS_ITS | Encounter Summary ---
:1965 Author Organization [facility] Address [address] [address] Care Team Providers Name Role Phone Jose Colin DO Primary Care Provider [phone] Encounter Details Date Type Department Care Team Description 07/04/2005 Correspondence [facility] Aravind Jose MD INFORMED CONSENT Plastic Surgery [address] [place] [address] Social History Tobacco Use Types Packs/Day Years Used Date Smoking Tobacco: Never Alcohol Use Standard Drinks/Week Comments Yes 0 (1 standard drink = 0.6 oz pure alcoho l) rarely Sex Assigned at Date Recorded Not on file documented as of this encounter Progress Notes Aravind Jose - 07/04/2005 12:00 AM MECHANICS HANDYMAN ANICS HANDYMAN documented in this encounter Plan of Treatment Not on filedocumented as of this encounter Visit Diagnoses Not on filedocumented in this encounter Care Teams Department Traffic Freight Router Relationship Specialty Start Date End Date Jose Colin DO PCP - General 12/24/03 09/17/[address] [place] [address] documented as of this encounter
--- OUTSIDE RECORDS SUMMARY | 2022-01-17 22:25 | XMS_ITS | Encounter Summary ---
:1965 Author Organization [facility] Address [address] [place] [address] Care Team Providers Name Role Phone Jose Colin DO Primary Care Provider [phone] Reason for Visit Reason Onset Date Comments RESULTS, TEST 07/19/2004 Encounter Details Date Type Department Care Team Description 07/19/2004 Telephone [facility] Jose Witt, RESULTS, TEST [address] [place] [address] [address] [phone] [place] [phone] (Wo rk) Social History Tobacco Use Types Packs/Day Years Used Date Smoking Tobacco: Never Alcohol Use Standard Drinks/Week Comments Not Asked 0 (1 standard drink = 0.6 oz pure alcoho l) Sex Assigned at Date Recorded Not on file documented as of this encounter Nursing Notes 07/19/2004 11:59 PM 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
--- OUTSIDE RECORDS SUMMARY | 2022-01-17 22:25 | XMS_ITS | Encounter Summary ---
:1965 Author Organization [facility] Address [address] [place] [address] Care Team Providers Name Role Phone Jose Colin DO Primary Care Provider [phone] Reason for Visit Reason Onset Date Comments RESULTS, TEST 07/18/2004 Encounter Details Date Type Department Care Team Description 07/18/2004 Telephone [facility] Internal Med Brigido Burton RN RESULTS, TEST [address] [place] [address] [address] [phone] [place], [place] [address] Social History Tobacco Use Types Packs/Day Years Used Date Smoking Tobacco: Never Alcohol Use Standard Drinks/Week Comments Not Asked 0 (1 standard drink = 0.6 oz pure alcoho l) Sex Assigned at Date Recorded Not on file documented as of this encounter Nursing Notes 07/18/2004 11:59 PM SCIENTIFIC TECHNICAL WRITER >> MICHAEL HALE Mon Jul 18, 2004 3:00 PM Spoke with the pt. and told her how the injection will work. Explained to her the procedure as bestas I could and informed her it would be done by a radiologist at some other location and not at the clinic. She will call the referral office to set up at her convienence. >> BRIGIDO ROGERS Mon Jul 18, 2004 10:32 AM Result Notes: Notes recorded by Jose Colin on 07/18/2004 at 10:23 AM some disk protrusion may benefit from epidural injection- i'll order Jose Colin DO 10:23 AM 07/18/2004 documented in this encounter Plan of Treatment Not on filedocumented as of this encounter Visit Diagnoses Not on filedocumented in this encounter Care Teams Instructional Coach Relationship Specialty Start Date End Date Jose Colin DO PCP - General 12/24/03 09/17/08 [address] [place] [address] documented as of this encounter
--- OUTSIDE RECORDS SUMMARY | 2022-01-17 22:25 | XMS_ITS | Encounter Summary ---
:1965 Author Organization [facility] Address [address] [place] [address] Care Team Providers Name Role Phone Jose Colin DO Primary Care Provider [phone] Encounter Details Date Type Department Care Team Description 07/15/2004 Orders Only [facility] Unknown, Physician [facility] [address] [place] [address] [place] [address] [phone] (Wo rk) Social History Tobacco Use Types Packs/Day Years Used Date Smoking Tobacco: Never Alcohol Use Standard Drinks/Week Comments Not Asked 0 (1 standard drink = 0.6 oz pure alcoho l) Sex Assigned at Date Recorded Not on file documented as of this encounter Procedure Notes Unknown, Physician - 07/15/2004 12:00 AM CSTAssociated Order(s): MRI SC documented in this encounter Plan of Treatment Not on filedocumented as of this encounter Procedures Procedure Name Priority Date/Time Associated Diagnosis Comme nts MRI SC 07/15/2004 12:00 AM Results for this SENIOR ENLISTED ADVISOR procedure are i n the results section. MAGNETIC SOURCE 07/15/2004 Results for this IMAGING procedure are i n the results section. documented in this encounter Results MRI SC (07/15/2004 12:00 AM SENIOR ENLISTED ADVISOR) Anatomical Region Laterality Modality Other Narrative 07/15/2004 12:00 AM SENIOR ENLISTED ADVISOR This result has an attachment that is no t available. Ordered by an unspecified provider. Transcriptions Unknown, Physician - 07/15/2004 12:00 AM SENIOR ENLISTED ADVISOR Physician Unknown DUMMY/OTHER/AR documented in this encounter Visit Diagnoses Not on filedocumented in this encounter Care Teams Retail Loan Originator Assistant Relationship Specialty Start Date End Date Jose Colin, PCP - General 7/15/04 4/9/09 [address] [place] [address] documented as of this encounter
--- OUTSIDE RECORDS SUMMARY | 2022-01-17 22:25 | XMS_ITS | Encounter Summary ---
:1965 Author [facility] Address [address], [place] [address] Care Team Providers Name Role Phone Jose Colin DO Primary Care Provider [phone] Reason for Referral Specialty Diagnoses / Procedures Referred By Contact Refer red To Contact Jose Colin DO [address] [place], [place] 975 43-3581 Referral ID Status Reason Start Date Expiration Date Visits Requ ested Visits Authorized GER MAC Encounter Details Date Type Department Care Team Description 07/18/2004 Notes/Orders [facility] Internal REMBERTO Colin BACK PA IN(ACUTE)<6 Medicine Jose Allan DO WEEKS (Primary Dx) [address] [facility] [address] [place] [address] [place] [phone] [address] Social History Tobacco Use Types Packs/Day Years Used Date Smoking Tobacco: Never Alcohol Use Standard Drinks/Week Comments Not Asked 0 (1 standard drink = 0.6 oz pure alcoho l) Sex Assigned at Date Recorded Not on file documented as of this encounter Plan of Treatment Scheduled Referrals Name Type Priority Associated Diagnoses Order S chedule ANESTHESIA-NERVE Referral Routine Low Back Pain(Acute)<6 O rdered: 07/18/2004 BLOCK / EPDUR Weeks documented as of this encounter Visit Diagnoses Diagnosis Lumbago - Primary documented in this encounter Care Teams Grinder Carbon Plant Relationship Specialty Start Date End Date Jose Colin DO PCP - General 12/24/03 09/17/08 [address] [place] [address] documented as of this encounter
--- OUTSIDE RECORDS SUMMARY | 2022-01-17 22:25 | XMS_ITS | Encounter Summary ---
:1965 Author Organization [facility] Address [address] [place] [address] Care Team Providers Name Role Phone Jose Colin DO Primary Care Provider [phone] Reason for Referral Specialty Diagnoses / Procedures Referred By Contact Refer red To Contact Jose Colin DO [address] [place], [place] [address] 94-4712 Referral ID Status Reason Start Date Expiration Date Visits Requ ested Visits Authorized ULAR SURGERY PHYSICIAN Reason for Visit Reason Comments BACK PAIN affects both legs Encounter Details Date Type Department Care Team Description 05/25/2005 Office Visit [facility] Internal Dixie LOW BACK DEBRA IN Medicine Jose Allan DO (CHRONIC)>6 WEEKS [address] [facility] [address] (Primary Dx) [place] [address] [place], [place] [phone] [address] Social History Tobacco Use Types Packs/Day Years Used Date Smoking Tobacco: Never Alcohol Use Standard Drinks/Week Comments Yes 0 (1 standard drink = 0.6 oz pure alcoho l) rarely Sex Assigned at Date Recorded Not on file documented as of this encounter Last Filed Vital Signs Vital Sign Reading Time Taken Comments Blood Pressure 126/72 05/25/2005 4:17 PM VASCULAR SURGERY PHYSICIAN Pulse 72 05/25/2005 4:17 PM VASCULAR SURGERY PHYSICIAN Temperature - - Respiratory Rate 16 05/25/2005 4:17 PM VASCULAR SURGERY PHYSICIAN Oxygen Saturation - - Inhaled Oxygen Concentration - - Weight 82.1 kg (181 lb) 05/25/2005 4:17 PM VASCULAR SURGERY PHYSICIAN Height 160 cm (5' 3) 05/25/2005 4:17 PM VASCULAR SURGERY PHYSICIAN Body Mass Index 32.06 05/25/2005 4:17 PM VASCULAR SURGERY PHYSICIAN documented in this encounter Patient Instructions Patient Bzdyruyajwoe43/15/2005 4:20 PM VASCULAR SURGERY PHYSICIAN PLEASE STOP AT CHECK OUT DESK BEFORE LEAVING THE CLINIC Check in at the Pharmacy for your prescription(s) to be filled at the Clinic documented in this encounter Progress Notes 05/25/2005 4:20 PM VASCULAR SURGERY PHYSICIAN SUBJECTIVE: Work comp?: no History of: -back pain: frequent (>1/yr) -back surgery: Yes; 09/2004 -cancer: No -osteoporosis or prolonged steroid use: No -intravenous drug use: No -immunosuppression (chemotherapy, cytoxan, remicade etc.): No -Associated symptoms include: none and sciatica to the right leg Onset was: several month(s) ago. Onset nature: not associated with any specific event Pain has increased Character: Achy, Burning pressure, Severe and Steady Severity: - Location: right low back Radiation: right thigh Aggravated by: lying supine at night in bed NARRATIVE: Megan Choi is a 40 yr old female who presents for follow up on her Exacerbation of chronic low back pain and Degenerative lumbar disk disease. Since her last visit, she has been treating her back pain with NSAIDS, physical therapy, epidural injections and surgery with temporary relief - ok for a month or so, then pain returned on the right side (was on the left). She reports that her legs feel like lead when she walks. Review of patient's past surgical history indicates: REMOVAL OF TONSILS DELIVERY 1987 NECK SPINAL FUSION 2000 Comment: c5-c7 L5-S1 microdiskectomy, hemilaminectomy, forami* 09/13 Review of patient's past medical history indicates: REVIEWED-NONE NOTED OBJECTIVE: BP 126/72 Pulse 72 Resp 16 Ht 5' 3 (1.60m) Wt 181 lbs (82.1kg) Appearance moves comfortably Physical Exam: Normal findings: gait normal, heel and toe walking intact, deep tendon reflexes at knees and ankles+2, spine nontender to palpation, sacroiliac areas nontender, sensation intact at medial, dorsal, and lateral aspects of the feet, strength normal throughout and straight leg raising negative on both legs Abnormal findings: ROM (ext, flex, rotation etc) decreased due to pain SKIN: normal Localizing findings: none SI Tests: not indicated. ASSESSMENT: Exacerbation of chronic low back pain Degenerative lumbar disk disease possible Lumbar spinal stenosis PLAN: See orders - MRI to see if calcifications are causing spinal stenosis; nsaid's, vicodin for breakthrough pain Follow up: after MRI Jose Colin DO 6:13 PM 05/25/2005 documented in this encounter Plan of Treatment Scheduled Referrals Name Type Priority Associated Diagnoses Order S chedule MRI - MAGNETIC Referral Routine Low Back Pain Ordered: [facility] (Chronic)>6 Weeks documented as of this encounter Visit Diagnoses Diagnosis Other unspecified back disorder - Primar y documented in this encounter Care Teams History Tutor Relationship Specialty Start Date End Date Jose Colin DO PCP - General 12/24/03 09/17/[address] [place] [phone] documented as of this encounter
--- OUTSIDE RECORDS SUMMARY | 2022-01-17 22:25 | XMS_ITS | Encounter Summary ---
:1965 Author Organization [facility] Address [address] [place] [address] Care Team Providers Name Role Phone Jose Colin DO Primary Care Provider [phone] Reason for Visit Reason Onset Date Comments RESULTS, TEST 06/06/2005 Encounter Details Date Type Department Care Team Description 06/06/2005 Telephone [facility] Jose Witt, RESULTS, TEST [address] [place] [address] [address] [facility] [phone] [place] [address] (Wo rk) Social History Tobacco Use Types Packs/Day Years Used Date Smoking Tobacco: Never Alcohol Use Standard Drinks/Week Comments Yes 0 (1 standard drink = 0.6 oz pure alcoho l) rarely Sex Assigned at Date Recorded Not on file documented as of this encounter Nursing Notes 06/06/2005 11:59 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 She should f/u as per her discussion with Dr Maynard at their last visit or within 2 weeks. Jose Weller MD >> MELISSA OBREGON [place] Jun 08, 2005 12:06 PM Patient called back. Wanting to know if she needs to come in and see to get MRI results or if she can get these by phone? Please advise. Waiting for call back since Sunday. Can be reached at [phone] until 3:30 today. >> BOB S RENEE jeramie Jun 06, 2005 9:42 AM Pt [place] [facility] [place] would like results. documented in this encounter Plan of Treatment Not on filedocumented as of this encounter Visit Diagnoses Not on filedocumented in this encounter Care Teams Hydraulic Miner Relationship Specialty Start Date End Date Jose Colin, PCP - General 12/24/03 09/17/08 [address] [place] [address] documented as of this encounter
--- OUTSIDE RECORDS SUMMARY | 2022-01-17 22:26 | XMS_ITS | Encounter Summary ---
:1965 Author Organization [facility] Address [address] [place] [address] Care Team Providers Name Role Phone Greyson Gonzalez MD Primary Care Provider Encounter Details Date Type Department Care Team Description 08/26/2002 Office Visit [facility] Internal Med Jose Witt, BURSITIS NEC [address] [place] [address] [address] [facility] [phone] [place] [address] (Wo rk) Social History Tobacco Use Types Packs/Day Years Used Date Smoking Tobacco: Never Alcohol Use Standard Drinks/Week Comments Not Asked 0 (1 standard drink = 0.6 oz pure alcoho l) Sex Assigned at Date Recorded Not on file documented as of this encounter Last Filed Vital Signs Vital Sign Reading Time Taken Comments Blood Pressure 110/56 08/26/2002 4:20 PM OFFICE RENTAL CLERK Pulse 68 08/26/2002 4:20 PM OFFICE RENTAL CLERK Temperature 36.2 ??C (97.2 ??F) 08/26/2002 4:20 PM OFFICE RENTAL CLERK Respiratory Rate 20 08/26/2002 4:20 PM OFFICE RENTAL CLERK Oxygen Saturation - - Inhaled Oxygen Concentration - - Weight - - Height - - Body Mass Index - - documented in this encounter Progress Notes 08/26/2002 4:20 PM OFFICE RENTAL CLERK Megan Choi is here today for Injection R shoulder Are you having other pain today, that you want to discuss with the provider? -YES Preventive Services up to date? -{YES/NO NEEDS:57009} Immunizations up to date? -{YES/NO,NEEDS:08640} Do you ever feel physically threatened or emotionally afraid? -NO Tobacco Status reviewed? (see History Social-Substance) -YES slide attendant offered? -NOT APPLICABLE. Aspirin taken daily? -NO BP was taken on the LEFT arm. Large cuff used? -NO Health Education given? -NO. Contact phone number [phone] (home) [phone] (work), alternate phone number . Schuyler ThorpeMONSE 08/26/2002 4:31 PM Erythromycin Current prescriptions: MULTIPLE VITAMIN TABS OR, 1 qd, D: 30, R: 0 ACIPHEX 20MG ORAL TABS, TAKE 1 TABLET by mouthDAILY, D: 30, R: 0 Jose Colin - 08/26/2002 12:00 AM CSTCHIEF COMPLAINT: Right shoulder pain. HISTORY OF PRESENT ILLNESS: This is a 37-year-old female who has been complaining of right shoulder pain for the last month or so. She had actually seen Dr. Gonzalez for this in the past who referred the patient to Shyla Perdomo to do an injection for shoulder bursitis. However, Shyla is not here today secondary to her and so the patient was referred to me to be seen. The patient denies any other tingling numbness in her hands or arms. She occasionally has some pain in her upper arms, but most of this is related to the shoulder joint itself. PHYSICAL EXAMINATION Her vital signs are stable. She has no decreased range of motion in her shoulder, but she does have some pain definitely with internal rotation and forced abduction and adduction. ASSESSMENT AND PLAN: Bursitis of the shoulder. The patient actually was given an injection today. After explaining the procedure to the patient including side effects such as flushing from the steroid injection, approximately 1 milliliter of Kenalog, which is about 40 mg, in addition to 4 cc of 2% lidocaine were injected into the patient's bursitis with some initial relief. If the patient has no relief from this injection she will be following up with Dr. Gonzalez in the near future. Of note, I would normally use some Sensorcaine, but we were out of that particular anesthetic at this time and so I had to do it with the short-acting lidocaine. The patient was instructed on aftercare and she following up as needed. IN SUMMARY: BURSITIS OF THE SHOULDER cc: CE RENTAL CLERK documented in this encounter Plan of Treatment Not on filedocumented as of this encounter Visit Diagnoses Diagnosis Other bursitis disorders documented in this encounter Care Teams Manager Report Relationship Specialty Start Date End Date Greyson Gonzalez MD PCP - General 04/15/01 12/23/03 [address] [place] [address] documented as of this encounter
--- OUTSIDE RECORDS SUMMARY | 2022-01-17 22:26 | XMS_ITS | Encounter Summary ---
:1965 Author Organization [facility] Address [address], [place] [address] Care Team Providers Name Role Phone Greyson Gonzalez MD Primary Care Provider Encounter Details Date Type Department Care Team Description 09/16/2002 Telephone [facility] Greyson Romero MD 205 [facility] [address] [place] [address] [place], [place] [phone] (Wo rk) Social History Tobacco Use Types Packs/Day Years Used Date Smoking Tobacco: Never Alcohol Use Standard Drinks/Week Comments Not Asked 0 (1 standard drink = 0.6 oz pure alcoho l) Sex Assigned at Date Recorded Not on file documented as of this encounter Progress Notes Greyson Gonzalez - 09/16/2002 12:00 AM CDT documented in this encounter Plan of Treatment Not on filedocumented as of this encounter Visit Diagnoses Not on filedocumented in this encounter Care Teams Mud Mixer Operator Relationship Specialty Start Date End Date Greyson Gonzalez MD PCP - General 04/15/01 12/23/03 [address] [place], [place] [phone] documented as of this encounter
--- OUTSIDE RECORDS SUMMARY | 2022-01-17 22:26 | XMS_ITS | Encounter Summary ---
:1965 Author Organization [facility] Address [address], [place] [address] Care Team Providers Name Role Phone Greyson Gonzalez MD Primary Care Provider Encounter Details Date Type Department Care Team Description 05/20/2001 Office Visit [facility] Obstetrics Blank Perez, GENERAL SYMPTOMS NEC; and Gynecology COOLER ROOM WORKER, ALMOND PASTE MIXER [facility], [address] [address] [place], [place] [phone] [address] Social History Tobacco Use Types Packs/Day Years Used Date Smoking Tobacco: Never Assessed Sex Assigned at Date Recorded Not on file documented as of this encounter Progress Notes Blank Perez - 05/20/2001 12:00 AM CSTSUBJECTIVE: 36-year-old female comes in today for follow-up. It appears that she is coming in for a follow-up on her oral contraceptive pills. She was seen on March 28 for routine health maintenance. She had some questions or concerns regarding PCO. She had lab work as well as ultrasound done. She had follow-up for that on April 19. She was started on Brevicon. I did call her recently and encouraged her to schedule an appointment with a diabetic resource nurse because of impaired glucose tolerance. She has been on oral contraceptive pills times one month. She is taking them on time. She has had some breakthrough spotting. She has had a tubal ligation. She is being treated mainly for hirsutism. Her fasting blood sugar on May 13 was 119, on April 22 it was 136. Her LDL was 170. Having no other particular problems with her oral contraceptive pills. OBJECTIVE: Weight is 194. Pulse is 64. Blood pressure is 118/76. No exam done today. We did discuss her ultrasound. It was an essentially normal pelvic ultrasound. However, could not see the right ovary. There are four to five peripheral follicles that could be considered polycystic ovary, but the ovary is not enlarged. ASSESSMENT: Follow-up ultrasound and OCPs, impaired glucose tolerance. PLAN: We did discuss the findings. Would recommend continuing on the Brevicon. We discussed spotting is common for the first three months and encouraged her to take it on time. A referral was given to schedule an appointment with a diabetic resource nurse to discuss her diet in more detail and obtain a lot more information. Also discussed weight loss. She will return in three months for OCP follow-up. Her serum insulin was 16. DHEA, sulfate and testosterone were normal. FSH was 5.5. IN SUMMARY: FOLLOW-UP ULTRASOUND AND OCPS, IMPAIRED GLUCOSE TOLERANCE. cc: RY AND DELI SALES MANAGER documented in this encounter Plan of Treatment Not on filedocumented as of this encounter Visit Diagnoses Diagnosis General symptoms NEC Other general symptoms Counseling NOS(V65.40) Counseling NOS documented in this encounter Care Teams Glassworker Relationship Specialty Start Date End Date Greyson Gonzalez MD PCP - General 04/15/01 12/23/03 [address] [place] [address] documented as of this encounter
--- OUTSIDE RECORDS SUMMARY | 2022-01-17 22:26 | XMS_ITS | Encounter Summary ---
:1965 Author [facility] Address [address] [place] [address] Care Team Providers Name Role Phone Greyson Gonzalez MD Primary Care Provider Reason for Visit Reason Comments DIZZINESS Encounter Details Date Type Department Care Team Description 03/05/2002 Telephone Careline Dereck Dacosta RN DIZZINESS [address] [place], [place] [address] [facility] [phone] [place] [address] Social History Tobacco Use Types Packs/Day Years Used Date Smoking Tobacco: Never Assessed Sex Assigned at Date Recorded Not on file documented as of this encounter Nursing Notes 03/05/2002 11:59 PM CDT >> DERECK DACOSTA SunMar 05, 2002 1:39 PM >> COMPLETED ON SunMar 05, 2002 1:42 PM >> CALL RECEIVED. Contact: TRIAGE REFERENCE: DIZZINESS - ADULT CNG (c) 2001 STAT SYMPTOMS: None per guideline Onset: sudden, duration: 8 hours, feels faint: no. Signs of shock (syncope, diaphoresis, tachycardia, dizziness/fainting, severe bleeding): no. Symptoms of vertigo: room is spinning intermittently, feels as if revolving in space. Other symptoms: none. Precipitating factors: none, history of dizziness: no. PMH: healthy. CURRENT MEDICATIONS: yes: aciphex. MEDICATION ALLERGIES: yes: Erythromycin. PLAN: Appointment center to schedule appointment. To clinic for eval today. documented in this encounter Plan of Treatment Not on filedocumented as of this encounter Visit Diagnoses Not on filedocumented in this encounter Care Teams Filter Tip Inspector Relationship Specialty Start Date End Date Greyson Gonzalez MD PCP - General 04/15/01 12/23/03 [address] [place] [address] documented as of this encounter
--- OUTSIDE RECORDS SUMMARY | 2022-01-17 22:26 | XMS_ITS | Encounter Summary ---
:1965 Author Organization [facility] Address [address] [place] [address] Care Team Providers Name Role Phone Greyson Gonzalez MD Primary Care Provider Encounter Details Date Type Department Care Team Description 09/02/2002 Office Visit [facility] Obstetrics Blank Perez, GYNECOLO GIC EXAMINATION; and Gynecology MARKETING FINANCE MANAGER, TAX AGENT SCREENING MAL NEOP-CERVIX; [address] [facility] [place] [address] [place], [place] [phone] [address] Social History Tobacco Use Types Packs/Day Years Used Date Smoking Tobacco: Never Alcohol Use Standard Drinks/Week Comments Not Asked 0 (1 standard drink = 0.6 oz pure alcoho l) Sex Assigned at Date Recorded Not on file documented as of this encounter Last Filed Vital Signs Vital Sign Reading Time Taken Comments Blood Pressure 102/56 09/02/2002 2:00 PM CHIEF MECHANICAL ENGINEER Pulse 64 09/02/2002 2:00 PM CHIEF MECHANICAL ENGINEER Temperature - - Respiratory Rate - - Oxygen Saturation - - Inhaled Oxygen Concentration - - Weight 69.8 kg (153 lb 12.8 oz) 09/02/2002 2:00 PM CHIEF MECHANICAL ENGINEER Height 157.5 cm (5' 2) 09/02/2002 2:00 PM CHIEF MECHANICAL ENGINEER Body Mass Index 28.13 09/02/2002 2:00 PM CHIEF MECHANICAL ENGINEER documented in this encounter Progress Notes 09/02/2002 2:00 PM CHIEF MECHANICAL ENGINEER Megan Choi is here today for pe and pap. Are you having pain today, that you want to discuss with the provider? -NO Method of control? -Oral Contraceptives PARA 3003 Patient does Self Breast exams? -OCCASIONALLY. BP was taken on the RIGHT arm. Large cuff used- NO Immunizations up to date? -YES Preventive Services up to date? -YES PAP SMEAR, ROUTINE HP ONLY, (no units) Date Value Low High Status 03/28/2001 Final Value: See Separate Report Performed at [facility] No results found for this basename: CHOLESTEROL CHOLESTEROL-L (mg/dl) Date Value Low High Status 03/28/2001 225* <200 Final Mammogram done? -yes awile ago. Bone Density study done? -No testing done. Do you ever feel physically threatened or emotionally afraid -NO Tobacco Status reviewed? (see History Social-Substance) -NO campground attendant offered? -DECLINED. Aspirin taken daily? - NO Health Education given? -NO. Patient's phone [phone] ([phone] (work) Thania YañezMONSE 09/02/2002 2:24 PM Current prescriptions: MULTIPLE VITAMIN TABS OR, 1 qd, D: 30, R: 0 ACIPHEX 20MG ORAL TABS, TAKE 1 TABLET by mouthDAILY, D: 30, R: 0 allergies Erythromycin Blank Perez R - 09/02/2002 12:00 AM CSTSUBJECTIVE: The patient is a 37-year-old female who comes in today for her preventive gynecologic examination. She is using oral contraceptives, para 3-0-0-3. Cholesterol level was checked in March 2001 and it was 225. Apparently, she has had a mammogram in the past. Current medications include multivitamin and Aciphex. She does have some hirsutism involving her chin and she manages that by shaving daily. The patient was on oral contraceptives actually and she did not feel it was beneficial for her, so she did discontinue them. She has had a tubal ligation. She did have an ultrasound done in April 2001. It was essentially normal, could not see the right ovary, 4-5 peripheral follicles on the left ovary and ovary was not enlarged. She seems to have impaired glucose. This was done on April 2001. It was 136. Repeated in May 2001 it was 119. It appears that she did see the dietitian August 2001. OBJECTIVE: The patient is pleasant in no acute distress. Her thyroid is without mass. Her lungs are clear and equal. Heart regular rate and rhythm. Breasts are soft without discrete mass without dimpling, retracting or nipple discharge. Abdomen is soft and nontender. Chin is shaved. External genitalia, vagina and cervix within normal limits. Bimanual examination is negative. PLAN: Discussed use of Vaniqua cream. This is not formulary item, she would have to pay full lee for it. She does pay a fairly large amount for her prescription drugs as well and would like to try it. She will apply it topically b.i.d. in the morning and at bedtime. Discussed that it will slow the hair growth, but will not stop it. Repeat fasting blood sugar and reviewed her other lab work. Encouraged exercise, adequate calcium intake. The patient will return in one year or p.r.n. IN SUMMARY: Routine health maintenance cc: F MECHANICAL ENGINEER documented in this encounter Plan of Treatment Not on filedocumented as of this encounter Visit Diagnoses Diagnosis Gynecological examination Screening for malignant neoplasm of the cervix Routine general medical examination at [facility] documented in this encounter Care Teams Steam Fitter Relationship Specialty Start Date End Date Greyson Gonzalez MD PCP - General 04/15/01 12/23/03 [address] [place] [address] documented as of this encounter
--- OUTSIDE RECORDS SUMMARY | 2022-01-17 22:26 | XMS_ITS | Encounter Summary ---
:1965 Author Organization [facility] Address [address] [place] [address] Care Team Providers Name Role Phone Jose Colin DO Primary Care Provider [phone] Encounter Details Date Type Department Care Team Description 12/24/[address] [facility] Internal Med Jose Witt DERMATITIS NOS [address], DO [place], [place] [id number] [facility] [phone] [place] [address] (Wo rk) Social History Tobacco Use Types Packs/Day Years Used Date Smoking Tobacco: Never Alcohol Use Standard Drinks/Week Comments Not Asked 0 (1 standard drink = 0.6 oz pure alcoho l) Sex Assigned at Date Recorded Not on file documented as of this encounter Last Filed Vital Signs Vital Sign Reading Time Taken Comments Blood Pressure 110/66 12/24/2003 4:20 PM CDT Pulse 68 12/24/2003 4:20 PM CDT Temperature - - Respiratory Rate 18 12/24/2003 4:20 PM CDT Oxygen Saturation - - Inhaled Oxygen Concentration - - Weight 74.8 kg (165 lb) 12/24/2003 4:20 PM CDT Height - - Body Mass Index 30.18 09/02/2002 2:00 PM EQUIPMENT OR MACHINERY CLEANER documented in this encounter Progress Notes 12/24/2003 4:20 PM CDT Megan Choi is here today for f/u on eczema Are you having other pain today, that you want to discuss with the provider? -NO Do you need refills on any of your medications today? -NO Preventive Services up to date? -NO Immunizations up to date? -NOT CHECKED Do you ever feel physically threatened or emotionally afraid? -NO Tobacco Status reviewed? (see History Social-Substance) -YES NEVER environmental services attendant offered? -NOT APPLICABLE. Aspirin taken daily? -NO BP was taken on the LEFT arm. BP cuff size used? -Adult Regular Health Education given? -NO. Contact phone number [phone] (home) [phone] (work), alternate phone number- Schuyler Thorpe LPN 12/24/2003 4:21 PM Current outpatient prescriptions: OMEPRAZOLE (PRILOSEC) 20MG ORAL CAPS,1 tablet daily,Disp: 30,Rfl: 99 FLUOCINONIDE (LIDEX) 0.05% OINTMENT,thin layer to rash on feet bid for up to three weeks,Disp: qs,Rfl: 0 NAPROXEN (NAPROSYN) 500MG ORAL TABS,one po bid,Disp: 14,Rfl: 0 Erythromycin Jose Colin - 12/24/2003 12:00 AM CDT<TRID:SPI> Doc Type<DT:IM> PT Name<NAME:Disha Choiine> <MRNo:[id number]> Dict ID<[id number]> <29:> Pt Tel #<30:> <28:> <BillNo:> Admit Date<4:12/24/2003> DD<5:> Svc Date<31:12/24/2003> <JobNo:[id number]> <TS:> <CC:> <21:0> Doc Status<RptStat:> Appt Clinic<1003:SP> Sched loc<1006:> Doc Grp<1009:H> <EndOfHeader> CHIEF COMPLAINT: Eczema. HISTORY OF PRESENT ILLNESS: This is a 38-year-old female who comes in today for followup with this dyshidrotic eczema. She was seen by Dr. Gonzalez in October 2003 and was prescribed Lidex for dyshidrotic eczema for three weeks. He reported that by the end of the three weeks, the rash is gone away and then returned. She then restarted the medications in November once again, the rash went away. She stopped the cream and it returned. Denies any fevers or chills or any other symptoms. PHYSICAL EXAM: Blood pressure is 110/66, pulse is 68, respirations 18. She weighs 165 pounds. On examination of the area described, there were small, clear pustules associated with clear fluid underneath them as well as some roughened reddened areas of flaky skin inbetween her first and second toe and fourth and fifth toes. They resemble once again dyshidrotic ecze ma. She does have some onychomycosis as well. ASSESSMENT AND PLAN: Dyshidrotic eczema. The patient was instructed at this concern that this is some kind of fastidious organisms to treat and I instructed her to continue using the Lidex twice a day for a two-month period. Also to try to keep her toes warm and dry, etc. Use of cotton socks, etc. Patient indicates she understood all the above and will befollowing up to primary as needed. D: cc: documented in this encounter Plan of Treatment Not on filedocumented as of this encounter Visit Diagnoses Diagnosis Contact dermatitis and other eczema, due to unspecified cause documented in this encounter Care Teams Fruit Or Nut Picker Relationship Specialty Start Date End Date Jose Colin, DO PCP - General 12/24/03 09/17/08 [address] [place] [address] documented as of this encounter
--- OUTSIDE RECORDS SUMMARY | 2022-01-17 22:26 | XMS_ITS | Encounter Summary ---
:1965 Author Organization [facility] Address [address], [place] [address] Care Team Providers Name Role Phone Greyson Gonzalez MD Primary Care Provider Encounter Details Date Type Department Care Team Description 07/02/2001 Office Visit [facility] Internal Greyson Gonzalez, JOINT PAIN-SHLDER; Medicine PAIN IN LIMB; [address] [place] [address] [place], [place] [phone] [address] Social History Tobacco Use Types Packs/Day Years Used Date Smoking Tobacco: Never Assessed Sex Assigned at Date Recorded Not on file documented as of this encounter Progress Notes Greyson Gonzalez - 07/02/2001 12:00 AM CSTSUBJECTIVE: The patient is new to me. She reports that on 09/20/00 she had cervical fusion at C6-C7. She reports that her symptoms never completely resolved and over the last several months symptoms have worsened further noting that her symptoms are the same as that that she has had in the past but less intense. The patient reports that she has a constant discomfort along the posterior dorsal aspect of the right shoulder medially. Discomfort is described as a dull throbbing aching discomfort. The discomfort is less notable in the morning and is worse as the day progresses, with the patient also reporting that with turning her head she will develop a sharp pain in the area as well. The discomfort can on occasion extend down the right upper extremity, extensor surface, to about the elbow. Associated with this she has had daily episodes of a cold numb-like feeling in her hand. She has not had extremity weakness associated with this. Although the patient sits at her desk doing repetitive work most of the day, there was no define preceding trauma. OBJECTIVE: BP: 124/84. PULSE: 80. The cervical spine had good range of motion, but the patient reported reproducible discomfort with flexion of the neck and with turning her head to the right. The cervical spine and posterodorsal aspect of the shoulder was nontender to palpation. Upper extremity strength was 5/5 with shoulder-shrug, abduction, adduction, flexion and extension at the elbow and with hand grasp. Distal soft touch sensation was grossly intact and deep tendon reflexes were symmetrical present at the biceps region. ASSESSMENT AND PLAN: Right shoulder and upper extremity pain with upper extremity dysesthesias. The to reports that she has metal hardware in her neck and, therefore, MRI would likely be a suboptimal study. I discussed the case with Dr. Doty from Radiology who advises me that plain CT scan of the neck would also likely be a suboptimal study. The patient is referred to Neurosurgery for re-evaluation and pending their input we can proceed from there. Of note, the patient is in the interim to treat with conservative home therapy noting she can try and follow recommendations as outlined in the neck book. She can apply warm packs and use nonsteroidal anti-inflammatory medication as tolerated. She was reminded to return ING PILOT documented in this encounter Plan of Treatment Not on filedocumented as of this encounter Visit Diagnoses Diagnosis Pain in joint, shoulder region Pain in limb Disturbance of skin sensation documented in this encounter Care Teams High School Math Teacher Relationship Specialty Start Date End Date Greyson Gonzalez MD PCP - General 04/15/01 12/23/03 [facility] [place] [address] documented as of this encounter
--- OUTSIDE RECORDS SUMMARY | 2022-01-17 22:26 | XMS_ITS | Encounter Summary ---
:1965 Author Organization [facility] Address [address], [place] [address] Care Team Providers Name Role Phone Greyson Gonzalez MD Primary Care Provider Encounter Details Date Type Department Care Team Description 07/26/2001 Orders Only [facility] Internal Med Juanito Chandra MD [address] [place] [address] Social History Tobacco Use Types Packs/Day Years Used Date Smoking Tobacco: Never Assessed Sex Assigned at Date Recorded Not on file documented as of this encounter Plan of Treatment Not on filedocumented as of this encounter Visit Diagnoses Not on filedocumented in this encounter Care Teams Manager Spanish Relationship Specialty Start Date End Date Greyson Gonzalez MD PCP - General 04/15/01 12/23/03 [address] [place] [address] documented as of this encounter
--- OUTSIDE RECORDS SUMMARY | 2022-01-17 22:26 | XMS_ITS | Encounter Summary ---
:1965 Author Organization [facility] Address [address] [place] [address] Care Team Providers Name Role Phone DixieJose Jerrell BOOGIE Primary Care Provider [phone] Reason for Visit Reason Comments NECK PAIN BACK PAIN Encounter Details Date Type Department Care Team Description 04/27/2004 Office Visit [facility] Que Urban BRACHIAL N EURITIS Practice NOS(CERVICAL [address] [facility] [address] RADICULOPATHY ([place] [address] [place], [place] Dx) [phone] Social History Tobacco Use Types Packs/Day Years Used Date Smoking Tobacco: Never Alcohol Use Standard Drinks/Week Comments Not Asked 0 (1 standard drink = 0.6 oz pure alcoho l) Sex Assigned at Date Recorded Not on file documented as of this encounter Last Filed Vital Signs Vital Sign Reading Time Taken Comments Blood Pressure 118/64 04/27/2004 1:11 PM COLLATERAL SPECIALIST Pulse - - Temperature 37.2 ??C (98.9 ??F) 04/27/2004 1:11 PM COLLATERAL SPECIALIST Respiratory Rate - - Oxygen Saturation - - Inhaled Oxygen Concentration - - Weight - - Height - - Body Mass Index - - documented in this encounter Progress Notes 04/27/2004 1:20 PM COLLATERAL SPECIALIST This office note has been dictated Que Urban - 04/27/2004 12:00 AM CSTThis patient is a 39-year-old female who has a lot of pain in the right posterior neck and upper back, posterior shoulder area and also intermittent radiation or occasional radiation of pain in the right lateral arm to about the elbow. She has a history of neck pain for quite a long period of time and in 2000 and cervical fusion at C5 through 7 with pins placed also. She did have some physical therapy after this surgery and neck pain did decrease quite a bit after the surgery but over the past three years she has had intermittent pain which has been slowly increasing over the past several months. Yesterday she had another physical therapy treatment for the low back and this was last evening and she had more traction for the lumbar spine last evening and when she was driving home from physical therapy she noted some increased pain in the neck and into the arm and this was prominent last evening and she slept minimally last evening because of the pain. She feels the low back pain did improve with traction. She has been using Naprosyn over the past couple of weeks. On exam now neck movement reveals that flexion and extension both are about 25 degrees and no further. Lateral bending and rotation to the right are only about 30 degrees and these movements do cause increased pain in the right trapezius muscle area. There is no scalp tenderness. Cervical spine not tender. There is tenderness in the right posterior neck muscle and the right trapezius muscle. Right shoulder, not tender. There is some mild tenderness in the right lateral upper arm in the volar forearm. Normal movement and motion of the right elbow and wrist. There is strong supervisor rose grading strength in the right hand. ASSESSMENT: Cervical radiculopathy. PLAN: She was given Medrol Dose pack and also Percocet to take. She could hold off on the Naprosyn now but at the end of the Medrol coarse she can restart the Naprosyn. She needs to minimize lifting and pushing and pulling activities with her arms. If continued pain or problems she should follow up. P cc: ATERAL SPECIALIST documented in this encounter Plan of Treatment Not on filedocumented as of this encounter Visit Diagnoses Diagnosis Brachial neuritis or radiculitis NOS - P rimary Brachial neuritis or radiculitis nos documented in this encounter Care Teams Food Service Assistant Relationship Specialty Start Date End Date Jose Colin DO PCP - General 12/24/03 09/17/08 [address] [place] [address] documented as of this encounter
--- OUTSIDE RECORDS SUMMARY | 2022-01-17 22:26 | XMS_ITS | Encounter Summary ---
:1965 Author Organization [facility] Address [address] [place] [address] Care Team Providers Name Role Phone Greyson Gonzalez MD Primary Care Provider Encounter Details Date Type Department Care Team Description 08/26/2002 Correspondence None Unknown, [facility] [address] [place] [address] (Wo rk) Social History Tobacco Use Types Packs/Day Years Used Date Smoking Tobacco: Never Alcohol Use Standard Drinks/Week Comments Not Asked 0 (1 standard drink = 0.6 oz pure alcoho l) Sex Assigned at Date Recorded Not on file documented as of this encounter Progress Notes Unknown, Physician - 08/26/2002 12:00 AM HYDROELECTRIC SYSTEMS TECHNICIAN documented in this encounter Plan of Treatment Not on filedocumented as of this encounter Visit Diagnoses Not on filedocumented in this encounter Care Teams Shucker Relationship Specialty Start Date End Date Greyson Gonzalez MD PCP - General 04/15/01 12/23/03 [address] [place], [place] [address] documented as of this encounter
--- OUTSIDE RECORDS SUMMARY | 2022-01-17 22:26 | XMS_ITS | Encounter Summary ---
:1965 Author Organization [facility] Address [address], [place] [address] Care Team Providers Name Role Phone Greyson Gonzalez MD Primary Care Provider Encounter Details Date Type Department Care Team Description 01/03/2002 [place] [facility] [place], FAITH MAHMOOD CYST; Medicine ESOPHAGEAL REFLUX [address] [place] [address] Social History Tobacco Use Types Packs/Day Years Used Date Smoking Tobacco: Never Assessed Sex Assigned at Date Recorded Not on file documented as of this encounter Progress Notes Juanito Panda - 01/03/2002 12:00 AM CDTS: This 36-year-old female is here concerning a lump she has noted on her right upper arm. She is concerned that it rubs against her clothing and feels itchy and irritated at times. She also is on long-term suppressive therapy for gastroesophageal reflux with Aciphex. She states the results are satisfactory, but she needs her prescription renewed. She is not having any nausea or vomiting. O: Blood pressure 104/64. In the right triceps area of the upper arm there is a subcutaneous mass approximately 1 cm in size. It would appear consistent with a sebaceous cyst. There is no evidence of infection, but there is some slight inflammation of the overlying skin from rubbing. A: 1. Sebaceous cyst. 2. Gastroesophageal reflux. P: Patient is given triamcinolone ointment 0.1% to apply t.i.d. to upper arm. I noted that excision would be the only other solution, but she may be able to control the symptoms with the ointment. She is given a renewal of her Aciphex prescription 20 mg p.o. q.d. IN SUMMARY: Sebaceous cyst, gastroesophageal reflux. cc: documented in this encounter Plan of Treatment Not on filedocumented as of this encounter Visit Diagnoses Diagnosis Sebaceous cyst Esophageal reflux documented in this encounter Care Teams Teller Supervisor Relationship Specialty Start Date End Date Greyson Gonzalez MD PCP - General 04/15/01 12/23/03 [address] [place] [address] documented as of this encounter
--- OUTSIDE RECORDS SUMMARY | 2022-01-17 22:26 | XMS_ITS | Encounter Summary ---
:1965 Author Organization [facility] Address [address] [place] [address] Care Team Providers Name Role Phone Greyson Gonzalez MD Primary Care Provider Encounter Details Date Type Department Care Team Description 2002 Office Visit [facility] Lebron Mcgrath MD [facility] R & FIBROSIS OF SKIN Social History Tobacco Use Types Packs/Day Years Used Date Smoking Tobacco: Never Assessed Sex Assigned at Date Recorded Not on file documented as of this encounter Last Filed Vital Signs Vital Sign Reading Time Taken Comments Blood Pressure 102/60 2002 2:40 PM CDT Pulse 80 2002 2:40 PM CDT Temperature - - Respiratory Rate - - Oxygen Saturation - - Inhaled Oxygen Concentration - - Weight - - Height - - Body Mass Index - - documented in this encounter Progress Notes 2002 2:40 PM CDT consult from dr. gera polanco, lesion upper (R) arm Lebron Mcgrath - 2002 12:00 AM CDTLorraine has had a tender lesion in the dermis of the right upper arm for about two years. She thinks it is getting a little bigger and has been more symptomatic. Clinical examination demonstrates an indurated cutaneous mass that appears to be compatible with dermal fibrosis. The area was marked with a marking pen after preparation with Hibiclens. An excisional biopsy was performed after I made incision through it and determined that it was not a simple sebaceous cyst. The wound was repaired with interrupted 5-O Prolene sutures. Return to clinic in eight days. Specimen to Laboratory. IN SUMMARY: PROBABLE DERMAL FIBROSIS, RIGHT UPPER ARM. cc: documented in this encounter Plan of Treatment Not on filedocumented as of this encounter Visit Diagnoses Diagnosis Scar condition and fibrosis of skin documented in this encounter Care Teams Welder Oxyhydrogen Relationship Specialty Start Date End Date Greyson Gonzalez MD PCP - General 04/15/01 12/23/03 [address] [place] [address] documented as of this encounter
--- OUTSIDE RECORDS SUMMARY | 2022-01-17 22:26 | XMS_ITS | Encounter Summary ---
:1965 Author Organization [facility] Address [address] [place] [address] Care Team Providers Name Role Phone Greyson Gonzalez MD Primary Care Provider Encounter Details Date Type Department Care Team Description 09/12/2002 Office Visit [facility] Internal Greyson Gonzalez, JOINT PAIN-SHLDER (Primary Dx); Medicine PAIN IN LIMB [address] [facility] [address] [place] [address] [place], [place] [phone] [address] Social History Tobacco Use Types Packs/Day Years Used Date Smoking Tobacco: Never Alcohol Use Standard Drinks/Week Comments Not Asked 0 (1 standard drink = 0.6 oz pure alcoho l) Sex Assigned at Date Recorded Not on file documented as of this encounter Last Filed Vital Signs Vital Sign Reading Time Taken Comments Blood Pressure 108/60 09/12/2002 4:20 PM LINE INSPECTOR Pulse 66 09/12/2002 4:20 PM LINE INSPECTOR Temperature - - Respiratory Rate 16 09/12/2002 4:20 PM LINE INSPECTOR Oxygen Saturation - - Inhaled Oxygen Concentration - - Weight 69.9 kg (154 lb) 09/12/2002 4:20 PM LINE INSPECTOR Height - - Body Mass Index 28.17 09/02/2002 2:00 PM LINE INSPECTOR documented in this encounter Progress Notes 09/12/2002 4:20 PM LINE INSPECTOR Megan Choi is here today for f/u R shoulder pain. Had steroid inj. only provided minimal relief for a few days, per pt. Are you having other pain today, that you want to discuss with the provider? -{PAIN YES/NO:59032} Preventive Services up to date? -{YES/NO NEEDS:63152} Immunizations up to date? -{YES/NO,NEEDS:29374} Do you ever feel physically threatened or emotionally afraid? -NO Tobacco Status reviewed? (see History Social-Substance) -YES mill attendant offered? -NOT APPLICABLE. Aspirin taken daily? -NO BP was taken on the RIGHT arm. Large cuff used? -NO Health Education given? -{YES/NO:34506}. Contact phone number [phone] (home) [phone] (work), alternate phone number . Esmerjose Berger LPN 09/12/2002 4:21 PM Greyson Gonzalez MD Erythromycin Current prescriptions: VANIQA CREA 13.9 % EX, apply bid, D: 1 tube, R: 3 MULTIPLE VITAMIN TABS OR, 1 qd, D: 30, R: 0 ACIPHEX 20MG ORAL TABS, TAKE 1 TABLET by mouthDAILY, D: 30, R: 0 Greyson Gonzalez - 09/12/2002 12:00 AM CSTSUBJECTIVE: The patient is here for follow-up of right shoulder and upper extremity pain. Please see my dictation from 08/22/2002. On 08/26/2002, the patient had a right shoulder steroid injection. For details, please see the dictation by Dr. Colin from that day. The patient returns today, reporting that the steroid injection helped some, noting she did not have complete resolution of discomfort for a brief period of time. She reports that she is once again symptomatic as previously described, noting I reviewed with the patient today my documentation regarding her description of symptoms. OBJECTIVE FINDINGS: Blood pressure 108/60, pulse 66, respiratory rate 16. The cervical spine had good range of motion and was nontender to palpation. The right shoulder, elbow and wrist had good range of motion. No swelling, erythema, bruising, increased warmth to touch or tenderness with palpation was appreciated. Upper extremity motor strength was 5/5 with shoulder shrug, abduction and adduction with elbow flexion and extension and with hand grasp. Distal soft touch sensation was grossly intact, and deep tendon reflexes were symmetrically present at the biceps region. ASSESSMENT AND PLAN: Right shoulder and upper extremity pain. The patient is going to have a plain film of the shoulder taken today. She can call for test results in a couple of days. She is going to try a course of physical therapy. She was advised that if this does not correct the problem, I would recommend additional diagnostic evaluation with CT scan of the cervical spine and right shoulder (noting due to hardware in her cervical spine, MRI cannot be done). She is to call immediately if symptoms should progress or change in any way. IN SUMMARY: RIGHT SHOULDER AND UPPER EXTREMITY PAIN cc: INSPECTOR documented in this encounter Procedure Notes Claritaclaritaloraine Romie - 09/12/2002 12:00 AM CSTAssociated Order(s): SHOULDER 2 VIEWS, MINIMUM CLINICAL DATA: PAIN EXAMINATION: IN SUMMARY: RIGHT SHOULDER, 09/12/02. Normal. Romie Boyle MD cc: Greyson Gonzalez MD Radiology SP documented in this encounter Plan of Treatment Not on filedocumented as of this encounter Procedures Procedure Name Priority Date/Time Associated Diagnosis Comme nts RADEX JOSSELYN COMPL Routine 09/12/2002 Joint Pain-Shlder Results for this MINIMUM 2 VIEWS procedure ar e in the results section . documented in this encounter Results SHOULDER 2 VIEWS, MINIMUM (09/12/2002) Anatomical Region Laterality Modality Other Specimen (Source) Anatomical Location Collection Method / Collectio n Time Received Time / Laterality Volume Transcriptions Socratesloraine Romie - 09/12/2002 12:00 AM C STCLINICAL DATA: PAIN EXAMINATION: IN SUMMARY: RIGHT SHOULDER, 09/12/02. Normal. Romie Boyle MD cc: Greyson Gonzalez MD Radiology SP Greyson Gonzalez MD RAD_1 documented in this encounter Visit Diagnoses Diagnosis Pain in joint, shoulder region - Primary Pain in limb documented in this encounter Care Teams Electric Accounting Machine Operator Relationship Specialty Start Date End Date Greyson Gonzalez MD PCP - General 04/15/01 12/23/03 [address] [place] [address] documented as of this encounter
--- OUTSIDE RECORDS SUMMARY | 2022-01-17 22:26 | XMS_ITS | Encounter Summary ---
:1965 Author Organization [facility] Address [address] [place] [address] Care Team Providers Name Role Phone Greyson Gonzalez MD Primary Care Provider Encounter Details Date Type Department Care Team Description 11/21/2001 Office Visit [facility] Optometry Ailyn Silva ey R MYOPIA [address] [place], [place] [address] (Wo rk) Social History Tobacco Use Types Packs/Day Years Used Date Smoking Tobacco: Never Assessed Sex Assigned at Date Recorded Not on file documented as of this encounter Plan of Treatment Not on filedocumented as of this encounter Visit Diagnoses Diagnosis Myopia documented in this encounter Care Teams Psychological Operations Relationship Specialty Start Date End Date Greyson Gonzalez MD PCP - General 04/15/01 12/23/03 [address] [place], [place] [phone] documented as of this encounter
--- OUTSIDE RECORDS SUMMARY | 2022-01-17 22:26 | XMS_ITS | Encounter Summary ---
:[address] [facility] Address [address] [place] [address] Care Team Providers Name Role Phone Greyson Gonzalez MD Primary Care Provider Encounter Details Date Type Department Care Team Description 01/13/2002 Orders Only [facility] Internal Med Juanito Chandra MD [address] [place] [address] Social History Tobacco Use Types Packs/Day Years Used Date Smoking Tobacco: Never Assessed Sex Assigned at Date Recorded Not on file documented as of this encounter Plan of Treatment Not on filedocumented as of this encounter Visit Diagnoses Not on filedocumented in this encounter Care Teams Vehicle Upholsterer Relationship Specialty Start Date End Date Greyson Gonzalez MD PCP - General 04/15/01 12/23/03 [address] [place], [place] [id number] documented as of this encounter
--- OUTSIDE RECORDS SUMMARY | 2022-01-17 22:26 | XMS_ITS | Encounter Summary ---
:1965 Author Organization [facility] Address [address] [place] [address] Care Team Providers Name Role Phone Dungjosé antonioelbaJose medina Jerrell BOOGIE Primary Care Provider [phone] Reason for Visit Reason Comments LEG PAIN numb MOLE Encounter Details Date Type Department Care Team Description 06/20/[address] [facility] Chris Smalls MD SCIATICA( ACUTE) Practice (Primary Dx) [address] [place] [address] Social History Tobacco Use Types Packs/Day Years Used Date Smoking Tobacco: Never Alcohol Use Standard Drinks/Week Comments Not Asked 0 (1 standard drink = 0.6 oz pure alcoho l) Sex Assigned at Date Recorded Not on file documented as of this encounter Last Filed Vital Signs Vital Sign Reading Time Taken Comments Blood Pressure 100/60 06/20/2004 2:38 PM APARTMENT 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 Pulse 72 06/20/2004 2:38 PM APARTMENT 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 Temperature 36.7 ??C (98.1 ??F) 06/20/2004 2:38 PM APARTMENT 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 Respiratory Rate 20 06/20/2004 2:38 PM APARTMENT 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 Oxygen Saturation - - Inhaled Oxygen Concentration - - Weight - - Height - - Body Mass Index - - documented in this encounter Progress Notes 06/20/2004 2:40 PM APARTMENT 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 This office note has been dictated. Chris Smalls - 06/20/2004 12:00 AM CSTSUBJECTIVE: Patient in for back strain on 04/14. Had improvement with that, however, in the last week she had marked increase in pain with left posterior thigh numbness down into the foot. Actually states that she didn't have much of a back pain with this, but it's worse the longer she's on her legs and standing. States that sitting actually does not tend to aggravate this as much. Denies any fever or chills, bowel or bladder dysfunction. Does have a mole on her left shoulder that was bleeding on review of systems, but otherwise review of systems was unremarkable. OBJECTIVE: Examination reveals normal vital signs of blood pressure 100/60. The back she does have positive straight leg raise at about 45 degrees on the left with toe up. Reflexes are intact. Has good heel, toe, and squat. Ward's test unremarkable. ASSESSMENT: 1. Sciatica left leg. We'll have her start on tapering doses of prednisone and to minimize prolonged standing or walking. We'll get x-rays of this area as she may indeed have some degree of stenosis. 2. Lesion to the left shoulder. It looks to be a compound nevi. However, if continued aggravation, bleeding she should have this removed. P cc: TMENT 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 documented in this encounter Procedure Notes Sofia Lilly - 06/20/2004 12:00 AM CSTAssociated Order(s): L-SPINE WITH OBLIQUES CLINICAL DATA: Recurrent sciatica. EXAMINATION: LUMBOSACRAL SPINE WITH OBLIQUES - 06/20/04. FINDINGS: Alignment is normal. There is spurring and disk space narrowing at L5-S1. No other abnormalities are noted. CONCLUSION: Degenerative spurring and disk space narrowing L5-S1. Sofia Lilly MD 11:00 A cc: Radiology SP Chris Smalls MD TMENT 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 documented in this encounter Plan of Treatment Not on filedocumented as of this encounter Procedures Procedure Name Priority Date/Time Associated Diagnosis Comme nts RADEX SPI LUMBOSAC Routine 06/20/2004 Sciatica(Acute) Result s for this MINIMUM 4 VIEWS procedure ar e in the results section . documented in this encounter Results L-SPINE WITH OBLIQUES (06/20/2004) Anatomical Region Laterality Modality Other Transcriptions Sofia Lilly - 06/20/2004 12:00 AM CS TCLINICAL DATA: Recurrent sciatica. EXAMINATION: LUMBOSACRAL SPINE WITH OBLI QUES - 1/10/05. FINDINGS: Alignment is normal. There is spurring and disk space narrowing at L5-S1. No other abnormalities are not ed. CONCLUSION: Degenerative spurring and di sk space narrowing L5-S1. Sofia Lilly MD 11:00 A cc: Radiology SP Chris Smalls MD Chris Smalls MD RAD_1 documented in this encounter Visit Diagnoses Diagnosis Sciatica (HRC) - Primary Sciatica documented in this encounter Care Teams Middle School English Teacher Relationship Specialty Start Date End Date Jose Colin, PCP - General 12/24/03 09/17/08 [address] [place] [address] documented as of this encounter
--- OUTSIDE RECORDS SUMMARY | 2022-01-17 22:26 | XMS_ITS | Encounter Summary ---
:1965 Author Organization [facility] Address [address] [place] [address] Care Team Providers Name Role Phone Greyson Gonzalez MD Primary Care Provider Encounter Details Date Type Department Care Team Description 01/24/2002 Office Visit [facility] Internal OfSchuyler moore, ACUTE Medicine PHARYNGITIS(SORE [address] [place]RO[place]) [place] [address] [place], [place] [phone] (Wo rk) Social History Tobacco Use Types Packs/Day Years Used Date Smoking Tobacco: Never Assessed Sex Assigned at Date Recorded Not on file documented as of this encounter Progress Notes Schuyler Ortiz - 01/24/2002 12:00 AM CDTSUBJECTIVE: This 36-year-old white female comes in because of sore throat and cough over the last 3-4 days. Patient said the onset of his sore throat, which was quite intense, was 3-4 days ago with initial low-grade fever. This has progressed and she now has a chronic cough with acute exacerbations. She has been bringing up yellowish to green sputum. Does note drainage in the posterior aspect of her throat. She notes this is much worse at night. She does not have any fever, but does feel chilled. MEDICATIONS: Aciphex. ALLERGIES: INTOLERANCE TO E.E.S. OBJECTIVE: Temperature 98.4. Pulse 88. Blood pressure 104/52. ENT: TMs and canals are clear. Throat shows diffuse erythema over the posterior pharynx with a small amount of exudate. Neck: Several tender precervical nodes bilaterally. Lungs: Clear to P A. Throat culture negative for strep. ASSESSMENT: Exudative pharyngitis. PLAN: 1. Discussed with patient. Advised gglo-hqy-jbhfzbm cough syrup and Tylenol. 2. Prescription for Zithromax 250 mg #6, 2 today and 1 p.o. daily for 4 days given to patient. Side effects discussed. 3. Recheck in 1 week if not improved. IN SUMMARY: Exudative pharyngitis. cc: documented in this encounter Plan of Treatment Not on filedocumented as of this encounter Visit Diagnoses Diagnosis Acute pharyngitis documented in this encounter Care Teams Forestry Aid Technician Relationship Specialty Start Date End Date Greyson Gonzalez MD PCP - General 04/15/01 12/23/03 [address] [place] [address] documented as of this encounter
--- OUTSIDE RECORDS SUMMARY | 2022-01-17 22:26 | XMS_ITS | Encounter Summary ---
:1965 Author Organization [facility] Address [address] [place] [address] Care Team Providers Name Role Phone Greyson Gonzalez MD Primary Care Provider Encounter Details Date Type Department Care Team Description 09/11/2002 Correspondence None Unknown, Physici an [facility] [address] [place], [place] [address] (Wo rk) Social History Tobacco Use Types Packs/Day Years Used Date Smoking Tobacco: Never Alcohol Use Standard Drinks/Week Comments Not Asked 0 (1 standard drink = 0.6 oz pure alcoho l) Sex Assigned at Date Recorded Not on file documented as of this encounter Progress Notes Unknown, Physician - 09/11/2002 12:00 AM JUNIOR ADMINISTRATIVE ASSISTANT documented in this encounter Plan of Treatment Not on filedocumented as of this encounter Visit Diagnoses Not on filedocumented in this encounter Care Teams Skating Rink Ice Maker Relationship Specialty Start Date End Date Greyson Gonzalez MD PCP - General 04/15/01 12/23/03 [address] [place], [place] [phone] documented as of this encounter
--- OUTSIDE RECORDS SUMMARY | 2022-01-17 22:26 | XMS_ITS | Encounter Summary ---
:1965 Author Organization [facility] Address [address] [place] [address] Care Team Providers Name Role Phone Jose Colin DO Primary Care Provider [phone] Encounter Details Date Type Department Care Team Description 04/27/2004 Correspondence None Unknown, Physici an [facility]LEASE [address] [place], [place] [address] (Wo rk) Social History Tobacco Use Types Packs/Day Years Used Date Smoking Tobacco: Never Alcohol Use Standard Drinks/Week Comments Not Asked 0 (1 standard drink = 0.6 oz pure alcoho l) Sex Assigned at Date Recorded Not on file documented as of this encounter Progress Notes Unknown, Physician - 04/27/2004 12:00 AM VENDING TECHNICIAN documented in this encounter Plan of Treatment Not on filedocumented as of this encounter Visit Diagnoses Not on filedocumented in this encounter Care Teams Shower Maid Relationship Specialty Start Date End Date Jose Colin DO PCP - General 12/24/03 09/17/[address] [place] [address] documented as of this encounter
--- OUTSIDE RECORDS SUMMARY | 2022-01-17 22:26 | XMS_ITS | Encounter Summary ---
:1965 Author Organization [facility] Address [address], [place] [address] Care Team Providers Name Role Phone Greyson Gonzalez MD Primary Care Provider Encounter Details Date Type Department Care Team Description 09/11/2002 Office Visit [facility] Internal Med Greyson Romero MD [address] [facility] [address] [place] [address] [place], [place] [phone] (Wo rk) Social History Tobacco Use Types Packs/Day Years Used Date Smoking Tobacco: Never Alcohol Use Standard Drinks/Week Comments Not Asked 0 (1 standard drink = 0.6 oz pure alcoho l) Sex Assigned at Date Recorded Not on file documented as of this encounter Progress Notes Greyson Gonzalez - 09/11/2002 12:00 AM INFORMATION TECHNOLOGY CONSULTANT RMATION TECHNOLOGY CONSULTANT documented in this encounter Plan of Treatment Not on filedocumented as of this encounter Visit Diagnoses Not on filedocumented in this encounter Care Teams Electrical Inspector Relationship Specialty Start Date End Date Greyson Gonzalez MD PCP - General 04/15/01 12/23/03 [address] [place], [place] [phone] documented as of this encounter
--- OUTSIDE RECORDS SUMMARY | 2022-01-17 22:26 | XMS_ITS | Encounter Summary ---
:1965 Author Organization [facility] Address [address], [place] [address] Care Team Providers Name Role Phone Jose Colin DO Primary Care Provider [phone] Encounter Details Date Type Department Care Team Description 04/21/2004 Notes/Orders [facility] Internal [place], DERMATITIS NOS Medicine Jose Allan DO (Primary Dx) [address] [facility] [address] [place] [address] [place], [place] [phone] [address] Social History Tobacco Use Types Packs/Day [...] and other eczema, due to unspecified cause - Primary documented in this encounter Care Teams Underwriting Operations Manager Relationship Specialty Start Date End Date Jose Colin DO PCP - General 12/24/03 09/17/08 [address] [place] [address] documented as of this encounter
--- OUTSIDE RECORDS SUMMARY | 2022-01-17 22:26 | XMS_ITS | Encounter Summary ---
:1965 Author Organization [facility] Address [address] [place] [address] Care Team Providers Name Role Phone Greyson Gonzalez MD Primary Care Provider Encounter Details Date Type Department Care Team Description 05/15/2003 Office Visit [facility] Mammogram I, Sp S CREENING MAMM-MAILG Mammography NEOPL-OTHER (Primary [address] [place] [facility] Dx) [place] [address] Social History Tobacco Use Types Packs/Day Years Used Date Smoking Tobacco: Never Alcohol Use Standard Drinks/Week Comments Not Asked 0 (1 standard drink = 0.6 oz pure alcoho l) Sex Assigned at Date Recorded Not on file documented as of this encounter Procedure Notes Dusty Gonsalves - 05/15/2003 12:00 AM CSTAssociated Order(s): MAMMOGRAM, SCREENING CLINICAL DATA: Screening. EXAMINATION: Bilateral mammogram, 05/15/03. ACR BIRADS CATEGORY 1 - NEGATIVE MAMMOGRAM. FINDINGS: Nothing for malignancy. Dusty Gonsalves MD 10:42 A cc: AUDREY Moffett Radiology SP TRIMMER documented in this encounter Plan of Treatment Not on filedocumented as of this encounter Procedures Procedure Name Priority Date/Time Associated Diagnosis Comme nts MAMMOGRAM, SCREENING Routine 05/15/2003 Screening Mamm-Mailg Results for this Neopl-Other procedure are i n the results section . documented in this encounter Results MAMMOGRAM, SCREENING (05/15/2003) Anatomical Region Laterality Modality Breast Other Specimen (Source) Anatomical Location Collection Method / Collectio n Time Received Time / Laterality Volume Transcriptions Dusty Gonsalves - 05/15/2003 12 :00 AM CSTCLINICAL DATA: Screening. EXAMINATION: Bilateral mammogram, . ACR BIRADS CATEGORY 1 - NEGATIVE MAMMOGR AM. FINDINGS: Nothing for malignancy. Dusty Gonsalves MD 10:42 A cc: AUDREY Moffett Radiology SP Blank Perez DIGITAL HARDWARE DESIGN ENGINEER, TANDEM MILL OPERATOR RAD_BI documented in this encounter Visit Diagnoses Diagnosis Other screening mammogram - Primary documented in this encounter Care Teams Insights Manager Relationship Specialty Start Date End Date Greyson Gonzalez MD PCP - General 04/15/01 12/23/03 [address] [place] [address] documented as of this encounter
--- OUTSIDE RECORDS SUMMARY | 2022-01-17 22:26 | XMS_ITS | Encounter Summary ---
:1965 Author Organization [facility] Address [address] [place] [address] Care Team Providers Name Role Phone Jose Colin DO Primary Care Provider [phone] Encounter Details Date Type Department Care Team Description 04/08/2004 Office Visit [facility] Internal Jose Colin DERM ATITIS NOS; Medicine D, DO SCIATICA(ACUTE); [address] [facility] [address] [place] [address] [place], [place] [phone] [address] (Wo rk) Social History Tobacco Use Types Packs/Day Years Used Date Smoking Tobacco: Never Alcohol Use Standard Drinks/Week Comments Not Asked 0 (1 standard drink = 0.6 oz pure alcoho l) Sex Assigned at Date Recorded Not on file documented as of this encounter Last Filed Vital Signs Vital Sign Reading Time Taken Comments Blood Pressure 112/64 04/08/2004 4:20 PM CDT Pulse 84 04/08/2004 4:20 PM CDT Temperature - - Respiratory Rate 20 04/08/2004 4:20 PM CDT Oxygen Saturation - - Inhaled Oxygen Concentration - - Weight 77.1 kg (170 lb) 04/08/2004 4:20 PM CDT Height - - Body Mass Index 31.09 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 -NO Do you need refills on any of your medications today? -YES Preventive Services up to date? -NO Immunizations up to date? -NOT CHECKED Do you ever feel physically threatened or emotionally afraid? -NO Tobacco Status reviewed? (see History Social-Substance) -YES NEVER keno attendant offered? -NOT APPLICABLE. Aspirin taken daily? -NO BP was taken on the LEFT arm. BP cuff size used? -Adult Regular Health Education given? -NO. Contact phone number [phone] (home) [phone] (work), alternate phone number- Schuyler Kilgore MONSE 04/08/2004 4:27 PM Current outpatient prescriptions: OMEPRAZOLE (PRILOSEC) 20MG ORAL CAPS,1 tablet daily,Disp: 30,Rfl: 99 FLUOCINONIDE (LIDEX) 0.05% OINTMENT,thin layer to rash on feet bid for up to three weeks,Disp: qs,Rfl: 0 NAPROXEN (NAPROSYN) 500MG ORAL TABS,one po bid,Disp: 14,Rfl: 0 Erythromycin Jose Colin - 04/08/2004 12:00 AM CDTCC: skin problems and back pain. HISTORY OF PRESENT ILLNESS this 39-year-old female who has had problems with dyshidrotic eczema on her right foot, as well as some acute and chronic back pain. The patient has been trying Lidex in the past for her eczema, which has helped but as soon as she discontinues it, it will come back and is very itchy. She has also had some problems with bilateral back pain, which radiates down to her leg in the distribution of the sciatic nerve. The patient has used some non-steroidals but never had done any physical therapy on this. She denies any loss of bladder or bowel function. She has a history of reflux. Physical exam: blood pressure is 112/64. Pulse 84. Respirations are 20. Weight: 170 pounds. Examination of the skin on her toes: there is some areas of raised dryish bumps on the scaly erythematous rash. She does have some subjective pain to palpation in his lumbar spine. Straight leg raising test is negative. Neurologically deep tendon reflexes and sensation are intact in her legs. Her abdomen is soft, non-tender. Positive bowel sounds. Heart is regular. A/P: 1. Dyshidrotic eczema. Patient will try Elavil. 2. Acute and chronic sciatica. The patient will continue on Naprosyn and go to physical therapy. 3. Her GERD. She will continue on her Aciphex or Prilosec. P cc: documented in this encounter Plan of Treatment Not on filedocumented as of this encounter Visit Diagnoses Diagnosis Contact dermatitis and other eczema, due to unspecified cause Sciatica (HRC) Sciatica Esophageal reflux documented in this encounter Care Teams Farmworker Grain Relationship Specialty Start Date End Date Jose Colin, DO PCP - General 12/24/03 09/17/08 [address] [place] [address] documented as of this encounter
--- OUTSIDE RECORDS SUMMARY | 2022-01-17 22:26 | XMS_ITS | Encounter Summary ---
:1965 [facility] Address [address], [place] [address] Care Team Providers Name Role Phone Greyson Gonzalez MD Primary Care Provider Encounter Details Date Type Department Care Team Description 2002 Orders Only [place] [facility] Lebron Booth MD ANGELA IGN CARLO SKIN ARM Social History Tobacco Use Types Packs/Day Years Used Date Smoking Tobacco: Never Assessed Sex Assigned at Date Recorded Not on file documented as of this encounter Plan of Treatment Not on filedocumented as of this encounter Procedures Procedure Name Priority Date/Time Associated Diagnosis Comme [facility] DERMATOPATHOLOGY Routine 2002 Benign Carlo Skin Arm Resu lts for this procedure are in the resu lts section. documented in this encounter Results DERMATOPATHOLOGY (2002) Component Value Ref Test Analysis Performed At [facility] Method Time [facility] Dermatopathology [facility] DERMATOPATHOLOGY Patient: MEGAN CHOI ?? : 1965 Med Rec: [id number] Date of BX: 2002 Date Acc: 03/28/2002 Date of DX: 03/31/2002 Physician: LEBRON BOOTH MD INTERP: John Balletseros,Eddie Alanis SITE: ? ARM, UPPER, RIGHT HX & DDX: ? Tender nodule for 2 years. GROSS: ?Received is an excisional biopsy measuring 12 mm x 9 mm. MICRO: ?The lesion consists of an aggregation of spindle to plump histiocytes and fibrocytes that permeate and at times, entrap collagen bundles throughout the dermis. The boundaries are indistinct. ??While the new growth is hypercellular, there is no evidence of malignancy. DIAGNOSIS: ? ARM, UPPER, RIGHT : DERMATOFIBROMA SNOMED-T: ??[id number] SNOMED-M: ??M-77095 ICD9-CM: ??216.6 Eddie Ballesteros M.D./Pathologist Specimen (Source) Anatomical Location Collection Method / Collectio n Time Received Time / Laterality Volume 2002 Lebron Booth MD PAPS Performing Organization Address City/State/[facility] Phon e Number [facility] DERMATOPATHOLOGY [address] [place] [address] documented in this encounter Visit Diagnoses Diagnosis Benign neoplasm of skin of upper limb, i ncluding shoulder documented in this encounter Care Teams Concrete Spreader Relationship Specialty Start Date End Date Greyson Gonzalez MD PCP - General 04/15/01 12/23/03 [address] [place] [address] documented as of this encounter
--- OUTSIDE RECORDS SUMMARY | 2022-01-17 22:26 | XMS_ITS | Encounter Summary ---
:1965 Author Organization [facility] Address [address] [place] [address] Care Team Providers Name Role Phone Greyson Gonzalez MD Primary Care Provider Encounter Details Date Type Department Care Team Description 10/14/2003 Office Visit [facility] Internal Greyson Gonzalez HEADACHE ; Julio Angeles MD DERMATOPHYTOSIS OF NAIL; [address] [place] [address] [place], [place] [phone] [address] Social History Tobacco Use Types Packs/Day Years Used Date Smoking Tobacco: Never Alcohol Use Standard Drinks/Week Comments Not Asked 0 (1 standard drink = 0.6 oz pure alcoho l) Sex Assigned at Date Recorded Not on file documented as of this encounter Last Filed Vital Signs Vital Sign Reading Time Taken Comments Blood Pressure 104/64 10/14/2003 4:20 PM CDT Pulse 68 10/14/2003 4:20 PM CDT Temperature 36.4 ??C (97.6 ??F) 10/14/2003 4:20 PM CDT Respiratory Rate 14 10/14/2003 4:20 PM CDT Oxygen Saturation - - Inhaled Oxygen Concentration - - Weight 72.6 kg (160 lb) 10/14/2003 4:20 PM CDT Height - - Body Mass Index 29.26 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 toenails, losing nails x six weeks. Rash on toes of L foot. Are you having other pain today, that you want to discuss with the provider? -YES, GEORGES x one week. Not relieved with usual med Do you need refills on any of your medications today? -NO Preventive Services up to date? -{YES/NO NEEDS:00448} Immunizations up to date? -{YES/NO,NEEDS:58200} Do you ever feel physically threatened or emotionally afraid? -NOT ASKED Tobacco Status reviewed? (see History Social-Substance) -NO sandwich counter attendant offered? -NOT APPLICABLE. Aspirin taken daily? -NO BP was taken on the RIGHT arm. BP cuff size used? -Adult Regular Health Education given? -NO. Contact phone number [phone] (home) [phone] (work), alternate phone number- Esmer Berger LPN 10/14/2003 4:30 PM No current outpatient prescriptions on file. Greyson Gonzalez - 10/14/2003 12:00 AM CDTSUBJECTIVE: For approximately one week, the patient has had a persistent problem with headache reporting bilateral parietal discomfort described as an aching pressure that waxes and wanes with regard to intensity. This has not been associated with fever, chills, visual disturbance, sore throat, ear ache, or focal neurologic symptoms with a list of examples having been provided to the patient. She has been treating this with a variety of NSAIDs on a p.r.n. basis. She has a history of migraine headaches. Recently, she has also had a pruritic rash involving several toes on her left foot. She also reports that in the last four to six weeks. She has lost several toenails on both feet, which have subsequently regrown. OBJECTIVE FINDINGS: Blood pressure 104/64. Pulse 68. Respiratory rate 14. Temperature 97.6. Skin: On several toes on the left foot, skin changes present are consistent with dyshidrotic eczema. Multiple nails on both feet have changes present consistent with onychomycosis. Pupils are equal, round, and reactive to light. EOMs were intact. Fundi have sharp discs. No nystagmus was appreciated. Sinuses were nontender in the frontal and maxillary distribution. TMs were without erythema or fluid level. Neck is supple/without nuchal rigidity. Neurologic exam was grossly intact to mental status and cranial nerves II through XII, motor strength, soft touch sensation, deep tendon reflexes and coordination and gait. Romberg and drift were unremarkable. ASSESSMENT AND PLAN: 1. Headache. Etiology is not clear but history and exam would suggest this does not represent a significant underlying pathology. She was advised to apply warm packs to the area of concern on a scheduled basis and she is prescribed Naprosyn 500 mg p.o. b.i.d. for seven days. She is given precautionary information regarding this medication and can get a handout from our pharmacy if additional information is desired. She was advised to return if this does not correct the problem and she is to return immediately if symptoms should escalate or change in any way. 2. Rash. The patient's rash is consistent with dyshidrotic eczema. She is prescribed Lidex ointment to be used in a thin layer b.i.d. for up to three weeks. She was given precautionary information regarding this medication and is to get a handout from our pharmacy if additional information is desired. She was advised to return if this does not correct the problem. 3. Onychomycosis. The patient and I discussed management options including observation without treatment noting she was advised this could progress. Topical therapy and oral antifungal therapy. The patient has elected to defer initiation of treatment for now. Follow up on this concern p.r.n. D: cc: documented in this encounter Plan of Treatment Not on filedocumented as of this encounter Visit Diagnoses Diagnosis Headache(784.0) Headache Dermatophytosis of nail Rash and other nonspecific skin eruption documented in this encounter Care Teams Computer Numerical Control Grinder Relationship Specialty Start Date End Date Greyson Gonzalez MD PCP - General 04/15/01 12/23/03 [facility] [place] [address] documented as of this encounter
--- OUTSIDE RECORDS SUMMARY | 2022-01-17 22:26 | XMS_ITS | Encounter Summary ---
:1965 Author Organization [facility] Address [address] [place] [address] Care Team Providers Name Role Phone Greyson Gonzalez MD Primary Care Provider Encounter Details Date Type Department Care Team Description 11/18/2003 Office Visit [facility] Optometry Dafne Kyle EYE & VISION EXAMINATION; April, JAZMIN MYOPIA; [address] Jaime ASTIGMATISM NOS; [place], [place] [address] [place] Social History Tobacco Use Types Packs/Day Years Used Date Smoking Tobacco: Never Alcohol Use Standard Drinks/Week Comments Not Asked 0 (1 standard drink = 0.6 oz pure alcoho l) Sex Assigned at Date Recorded Not on file documented as of this encounter Progress Notes Dafne Kyle - 11/18/2003 12:00 AM CDT documented in this encounter Plan of Treatment Not on filedocumented as of this encounter Visit Diagnoses Diagnosis Examination of eyes and vision Myopia Astigmatism, unspecified Presbyopia documented in this encounter Care Teams Resolution Expert Relationship Specialty Start Date End Date Greyson Gonzalez MD PCP - General 04/15/01 12/23/03 [address] [place] [address] documented as of this encounter
--- OUTSIDE RECORDS SUMMARY | 2022-01-17 22:26 | XMS_ITS | Encounter Summary ---
:1965 Author Organization [facility] Address [address] [address] Care Team Providers Name Role Phone Jose Colin DO Primary Care Provider Encounter Details Date Type Department Care Team Description 04/20/2004 Telephone [facility] Internal [facility] icine Jose Colin, [address] [place] [address] [address] [phone] [place] [address] (Wo rk) Social History Tobacco Use Types Packs/Day Years Used Date Smoking Tobacco: Never Alcohol Use Standard Drinks/Week Comments Not Asked 0 (1 standard drink = 0.6 oz pure alcoho l) Sex Assigned at Date Recorded Not on file documented as of this encounter Progress Notes Jose Colin - 04/20/2004 12:00 AM 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
--- OUTSIDE RECORDS SUMMARY | 2022-01-17 22:26 | XMS_ITS | Encounter Summary ---
:1965 Author Organization [facility] Address [address] [place] [address] Care Team Providers Name Role Phone Jose Colin DO Primary Care Provider [phone] Reason for Referral Specialty Diagnoses / Procedures Referred By Contact Refer red To Contact Jose Colin DO [address] [place], [place] [phone] Referral ID Status Reason Start Date Expiration Date Visits Requ ested Visits Authorized AISAL SPECIALIST Reason for Visit Reason Comments LEG PAIN f/u left leg Encounter Details Date Type Department Care Team Description 07/12/2004 Office Visit [facility] Internal [place] SCIATICA(AC QUINAULT) Medicine Jose Allan DO (Primary Dx) 205 [facility] [address] [place] [address] [place], [place] [phone] [address] Social History Tobacco Use Types Packs/Day Years Used Date Smoking Tobacco: Never Alcohol Use Standard Drinks/Week Comments Not Asked 0 (1 standard drink = 0.6 oz pure alcoho l) Sex Assigned at Date Recorded Not on file documented as of this encounter Last Filed Vital Signs Vital Sign Reading Time Taken Comments Blood Pressure 100/60 07/12/2004 3:22 PM APPRAISAL SPECIALIST Pulse 60 07/12/2004 3:22 PM APPRAISAL SPECIALIST Temperature 36.9 ??C (98.4 ??F) 07/12/2004 3:22 PM APPRAISAL SPECIALIST Respiratory Rate 16 07/12/2004 3:22 PM APPRAISAL SPECIALIST Oxygen Saturation - - Inhaled Oxygen Concentration - - Weight 78.1 kg (172 lb 3.2 oz) 07/12/2004 3:22 PM APPRAISAL SPECIALIST Height - - Body Mass Index 31.5 09/02/2002 2:00 PM APPRAISAL SPECIALIST documented in this encounter Patient Instructions Patient Oglaslsazvmk79/01/2005 3:20 PM APPRAISAL SPECIALIST Stop by the Referral [place] to schedule referral appointment. Continue Naprosyn and Vicodin as needed Call 2 to 3 days after MRI for next step documented in this encounter Progress Notes 07/12/2004 3:20 PM APPRAISAL SPECIALIST SUBJECTIVE: Megan Choi is a 39 yr old female presents for continuing left sciatica. She had seen Dr. Smalls on 06/20/2004 and was prescribed steroids with no relief. Exercises have not helped as well. Symptoms have persisted since 06/11/2004 and are getting worse - continuous numbness in left hamstring, calf and lateral aspect of foot. Also states that leg feels colder overall. Denies any bladder/bowel dysfunction. Has history of cervical spine surgery but nothing in the lumbar area. OBJECTIVE: BP 100/60 Pulse 60 Temp (Src) 98.4 (Oral) Resp 16 Wt 172 lbs 3 oz (78.1kg) LMP 07/04/2004 heart: regular lungs: clear back: decreased ROM in flexion and sidebend to the left neuro: straight leg raise positive on the left at 30 degress ASSESSMENT/PLAN: Sciatica - continue NSAID's, heat, exercises; MRI to evaluate - may be candidate for epidural; she'll follow up with me via phone call after MRI; Call or return to clinic prn if these symptoms worsen,fail to improve as anticipated, or if new symptoms develop. Jose Colin DO 4:20 PM 07/12/2004 documented in this encounter Plan of Treatment Scheduled Referrals Name Type Priority Associated Diagnoses Order S chedule MRI - MAGNETIC RESONANCE Referral Routine Sciatica(Acute) Ordered: 07/12/2004 IMAGING documented as of this encounter Visit Diagnoses Diagnosis Sciatica (HRC) - Primary Sciatica documented in this encounter Care Teams Position Classifier Relationship Specialty Start Date End Date Jose Colin DO PCP - General 12/24/03 09/17/08 [address] [place] [address] documented as of this encounter
--- OUTSIDE RECORDS SUMMARY | 2022-01-17 22:26 | XMS_ITS | Encounter Summary ---
:1965 Author Organization [facility] Address [address] [address] Care Team Providers Name Role Phone Greyson Gonzalez MD Primary Care Provider Encounter Details Date Type Department Care Team Description 09/02/2002 Orders Only [facility] Blank Giraldo, FUR STYLIST, PROTOTYPE ASSEMBLER ELECTRONICS 205 [facility] [address] [place] [address] [place] [address] (Wo rk) Social History Tobacco Use Types [...] Diagnosis Comme nts PAP TEST, ROUTINE Routine 09/02/2002 12:00 AM Res ults for this FEDERAL AGENT procedure are i n the results section. documented in this encounter Results PAP TEST, ROUTINE (09/02/2002 12:00 AM FEDERAL AGENT) Component Value Ref Test Analysis Performed At [facility] Method Time Signature Cytology, Pap (NOTE) REGIONS Stacker Attendant Cytology Report Patient Name: PADMINI CHOI Taken: 09/02/02 Received: 09/03/02 Reported: 09/10/02 Physician(s): BLANK GIRALDO ([id number]) ? [id number] ? Source of Specimen Liquid routine Pap, cervical/endocervical: ? Specimen Adequacy ? Satisfactory for evaluation. ??Endocervical component absent. Final Cytologic Interpretation/Result NEGATIVE FOR INTRAEPITHELIAL LESION OR MALIGNANCY (NILM) sv/09/10/02 Electronically Signed Out By TARIQ Castro (ASCP) VIRY JOHNSON ??CT(ASCP) TARIQ Castro (ASCP) ? Pap Smear History ? Date of Last Menstrual Period: ? 08/20/02 ? Contraceptive History: ? Control Pills ? Other Clinical Conditions: ? HPV reflex testing requested with interpretation of ASCUS Specimen (Source) Anatomical Collection Method Collection Time Re ceived Time Location / / Volume Laterality 09/02/2002 09/03/2002 2:27 PM FEDERAL AGENT Blank Giraldo APRN, PROTOTYPE ASSEMBLER ELECTRONICS LAB_1 Performing Organization Address City/State/ZIP Code Phon e Number [address] [address] [place], [place] [phone] documented in this encounter Visit Diagnoses Not on filedocumented in this encounter Care Teams Curbstone Setter Relationship Specialty Start Date End Date Greyson Gonzalez MD PCP - General 04/15/01 12/23/03 [address] [place] [address] documented as of this encounter
--- OUTSIDE RECORDS SUMMARY | 2022-01-17 22:26 | XMS_ITS | Encounter Summary ---
:1965 Author Organization [facility] Address [address] [address] Care Team Providers Name Role Phone Greyson Gonzalez MD Primary Care Provider Encounter Details Date Type Department Care Team Description 08/13/2001 Office Visit [facility] Wilda Louise AB N GLUCOSE TOLERAN TEST; Clinic RDN, KIESHA PURE HYPERCHOLESTEROLEM; [address] [place] [address] [place], [place] [phone] (Wo rk) Social History Tobacco Use Types Packs/Day Years Used Date Smoking Tobacco: Never Assessed Sex Assigned at Date Recorded Not on file documented as of this encounter Progress Notes Wilda Louise, RD, LD - 08/13/2001 12:00 AM CSTTotal time spent with patient: 60 minutes. PROBLEM: Patient referred for impaired glucose tolerance. SUBJECTIVE: Patient came in to the nutrition appointment saying she was glad Dr. Perez has been checking her lab values, because she has a history of diabetes in the family. She has siblings with diabetes and parents. She does not want to develop diabetes and would like to know what she can do with her eating habits to lose weight and eat better. She cannot drink milk because she is lactose intolerant. She does not think that eggs agree with her. She does not like Egg Beaters. She has teenage children and they are always on the run in the evening. Dinner is a difficult meal to have with the whole family. This morning patient had a bottle of fruit juice for breakfast and usually has lunch about 1:30. She usually has a turkey and cheese sandwich on white bread, Cheetos, sometimes oriental noodles, raw veggies and a can of Pepsi. Last night for dinner she had a Big Mac and a regular Pepsi. She would like to be more active and thinks that will happen when the weather is nicer to get out. 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 OBJECTIVE: A 36-year-old woman, referred to the dietitian for impaired glucose tolerance. Glucose on April 22, 2001, was 136 and on May 13, 2001, was 119, and this was after a 12-hour fast. Hemoglobin 14.6, lipid values 255, 106, 34 and 170. ASSESSMENT: Pleasant woman, motivated to make changes in her eating habits to improve her health and hopefully prevent diabetes, per patient. Patient's lipid values elevated with total cholesterol and LDL and HDL is low. Blood sugars running a little high. Patient needs to cut down on the amount of carbohydrates in her eating habits, especially the empty-calorie ones, to promote weight loss. Patient receptive to suggestions by dietitian for balancing the evening meal with quick nutritious choices and improving breakfast and lunch choices. PLAN: My Food Plan was filled out for patient with 2-4 carbohydrate choices at a meal and 1-2 at snack time. Patient able to verbalize her understanding of carbohydrate choices and how to look at a label for information. Patient given the cholesterol class schedule and was encouraged to attend sometime when she is not as busy. She has this dietitian's name and phone number to call with any questions. IN SUMMARY: Nutrition consult for glucose intolerance. cc: Wilda Louise RD, KIESHA TICING DERMATOLOGIST documented in this encounter Plan of Treatment Not on filedocumented as of this encounter Visit Diagnoses Diagnosis ABN GLUCOSE TOLERAN TEST Pure hypercholesterolemia Obesity, unspecified (HRC) Obesity, unspecified documented in this encounter Care Teams Boiler Out Relationship Specialty Start Date End Date Greyson Gonzalez MD PCP - General 04/15/01 12/23/03 [address] [place] [address] documented as of this encounter
--- OUTSIDE RECORDS SUMMARY | 2022-01-17 22:26 | XMS_ITS | Encounter Summary ---
:1965 Author Organization [facility] Address [address] [place] [address] Care Team Providers Name Role Phone Greyson Gonzalez MD Primary Care Provider Encounter Details Date Type Department Care Team Description 04/04/2002 Office Visit [facility] Lebron Mcgrath MD VERITO SSNG CHANGE SUTURE/STAPLE R EMOVAL Social History Tobacco Use Types Packs/Day Years Used Date Smoking Tobacco: Never Assessed Sex Assigned at Date Recorded Not on file documented as of this encounter Progress Notes 04/04/2002 3:20 PM CDT Suture removal, rt upper arm. Pathology: Dermatofibroma. Lebron Mcgrath - 04/04/2002 12:00 AM CDTS/O: Sutures are removed from the patient's right upper arm. The wound is healing well. Steri-Strip applied. Pathology reported this lesion was a dermatofibroma. IN SUMMARY: Suture removal. cc: documented in this encounter Plan of Treatment Not on filedocumented as of this encounter Visit Diagnoses Diagnosis Attention to dressings and sutures documented in this encounter Care Teams Payroll Services Analyst Relationship Specialty Start Date End Date Greyson Gonzalez MD PCP - General 04/15/01 12/23/03 [address] [place] [address] documented as of this encounter
--- OUTSIDE RECORDS SUMMARY | 2022-01-17 22:26 | XMS_ITS | Encounter Summary ---
:1965 Author [facility] Address [address], [place] [address] Care Team Providers Name Role Phone Greyson Gonzalez MD Primary Care Provider Encounter Details Date Type Department Care Team Description 12/27/2001 Orders Only [facility] Internal Med Juanito Chandra MD [address] [place] [address] Social History Tobacco Use Types Packs/Day Years Used Date Smoking Tobacco: Never Assessed Sex Assigned at Date Recorded Not on file documented as of this encounter Plan of Treatment Not on filedocumented as of this encounter Visit Diagnoses Not on filedocumented in this encounter Care Teams Lime Kiln And Recausticizing Operator Relationship Specialty Start Date End Date Greyson Gonzalez MD PCP - General 04/15/01 12/23/03 [address] [place] [address] documented as of this encounter
--- OUTSIDE RECORDS SUMMARY | 2022-01-17 22:26 | XMS_ITS | Encounter Summary ---
:1965 Author Organization [facility] Address [address] [address] Care Team Providers Name Role Phone Greyson Gonzalez MD Primary Care Provider Encounter Details Date Type Department Care Team Description 09/08/2002 Orders Only [facility] Blank Perez APRN, SAUSAGE CUTTER 205 [facility] [address] [place] [address] [place] [address] (Wo rk) Social History Tobacco [...] Name Priority Date/Time Associated Diagnosis Comme nts CHOLESTEROL, TOTAL Routine 09/08/2002 7:31 AM Res ults for this AND HDL ASSEMBLY CLEANER procedure are i n the results section. GLUCOSE - FASTING > Routine 09/08/2002 7:31 AM Re sults for this 8 HRS FASTING ASSEMBLY CLEANER procedure are in the results section. documented in this encounter Results GLUCOSE - FASTING > 8 HRS FASTING (09/08/2002 7:31 AM ASSEMBLY CLEANER) P athologist Signature Glucose 94 70 - 110 [facility] mg/dl Hours Fasting 12 hours [facility] Specimen Anatomical Collection Method Collection Time Receive d Time (Source) Location / / Volume Laterality 09/08/2002 7:31 AM 3 7:32 ASSEMBLY CLEANER AM ASSEMBLY CLEANER Blank Perez APRN, SAUSAGE CUTTER LAB_1 Performing Organization Address City/State/ZIP Code Phon e Number [facility] [phone] [address] (ABNORMAL) CHOLESTEROL, TOTAL AND HDL (09/08/2002 7:31 AM ASSEMBLY CLEANER) athologist Signature Cholesterol 151 <200 mg/dl [facility] HDL 33 (L) >35 mg/dl [facility] Specimen Anatomical Collection Method Collection Time Receive d Time (Source) Location / / Volume Laterality 09/08/2002 7:31 AM 3 7:32 ASSEMBLY CLEANER AM ASSEMBLY CLEANER Blank Perez PATIENT INFORMATION COORDINATOR, SAUSAGE CUTTER LAB_1 Performing Organization Address City/State/ZIP Code Phon e Number [facility] [employer] [phone] [address] documented in this encounter Visit Diagnoses Not on filedocumented in this encounter Care Teams Product Support Manager Relationship Specialty Start Date End Date Greyson Gonzalez MD PCP - General 04/15/01 12/23/03 [address] [place] [address] documented as of this encounter
--- OUTSIDE RECORDS SUMMARY | 2022-01-17 22:26 | XMS_ITS | Encounter Summary ---
:1965 Author Organization [facility] Address [address] [address] Care Team Providers Name Role Phone Greyson Gonzalez MD Primary Care Provider Encounter Details Date Type Department Care Team Description 01/24/2002 Orders Only Schuyler Ortiz MD [address] [place] [address] (Wo rk) Social History Tobacco Use Types Packs/Day Years Used Date Smoking Tobacco: Never Assessed Sex Assigned at Date Recorded Not on file documented as of this encounter Plan of Treatment Not on filedocumented as of this encounter Procedures Procedure Name Priority Date/Time Associated Diagnosis Comme nts STREP GRP A, RAPID Waiting 01/24/2002 2:38 PM Res ults for this SCREEN CDT procedure are i n the results section. documented in this encounter Results RAPID, GPA STREP SCREEN (WAITI (01/24/2002 2:38 PM CDT) [facility] Method Time Signature Patient Home [id number] [email or web address] Phone # Patient Work None [facility] By Search Phone # Grp A Rapid Negative [facility] By Search Screen Grp A Culture Negative [facility] By [facility] Final Specimen Anatomical Collection Method Collection Time Receive d Time (Source) Location / / Volume Laterality 01/24/2002 2:38 PM 2 2:39 CDT PM CDT Schuyler Ortiz MD LAB_1 Performing Organization Address City/State/ZIP Code Phon e Number [facility] [phone] [facility] [address] [address] documented in this encounter Visit Diagnoses Not on filedocumented in this encounter Care Teams Tunnel Kiln Repairer Relationship Specialty Start Date End Date Greyson Gonzalez MD PCP - General 04/15/01 12/23/03 [address] [place] [address] documented as of this encounter
--- OUTSIDE RECORDS SUMMARY | 2022-01-17 22:26 | XMS_ITS | Encounter Summary ---
:1965 Author Organization [facility] Address [address], [place] [address] Care Team Providers Name Role Phone Greyson Gonzalez MD Primary Care Provider Encounter Details Date Type Department Care Team Description 07/26/2001 Office Visit [facility] Internal Med Juanito Chandra MD DERMATITIS NOS [address] [place] [address] Social History Tobacco Use Types Packs/Day Years Used Date Smoking Tobacco: Never Assessed Sex Assigned at Date Recorded Not on file documented as of this encounter Progress Notes Juanito Panda - 07/26/2001 12:00 AM CSTS: This 36-year-old woman is here concernign a recent rash on her trunk. She notes that on July 20, she began having symptoms of flu and felt nauseated and had diarrhea. On July 21, she noted having a rash involving the anterior chest, bilateral breasts, and lateral trunk, which was mildly pruritic. Her other symptoms have resolved, but she has had the rash persist for 5 days now. The patient had taken some ibuprofen for her symptoms on July 20. Otherwise, her only medication is Aciphex. She has not bought any new clothing or underclothing, and has had no recent changes in her laundry products. She does have a cat in the house that she has owned for some time. The rash has not appeared on the extremities, neck, or face, and she is unaware of any on the back. O: Temperature 99.0, blood pressure 140/64. She appears well, in no distress. There is a rash involving blotchy macular areas of 2 to 4 mm in size which is most prominent over both breasts. I do not see any rash in the axillary area or the upper extremities. There are several blotches on her back corresponding to her bra line. A: Dermatitis. P: Noted the multiple possible causes of rash. She states that her cat sometimes lies on clothing after they have folded it, and it is possible she was wearing clothing with cat hair rubbing against her skin. Because it did not generalize, I doubt it is an allergy to ibuprofen or a viral rash. At this time, it seems to be related to contact factors. I recommended Benadryl as needed for itchiness, and she is given triamcinolone ointment 0.1% to apply to the affected areas b.i.d. or t.i.d. IN SUMMARY: Dermatitis. cc: IRON LOADER documented in this encounter Plan of Treatment Not on filedocumented as of this encounter Visit Diagnoses Diagnosis Contact dermatitis and other eczema, due to unspecified cause documented in this encounter Care Teams Botany Professor Relationship Specialty Start Date End Date Greyson Gonzalez MD PCP - General 04/15/01 12/23/03 [address] [place] [address] documented as of this encounter
--- OUTSIDE RECORDS SUMMARY | 2022-01-17 22:26 | XMS_ITS | Encounter Summary ---
:1965 Author Organization [facility] Address [address] [place] [address] Care Team Providers Name Role Phone Jose Stack DO Primary Care Provider [phone] Reason for Visit Reason Onset Date Comments Refill 05/09/2004 Encounter Details Date Type Department Care Team Description 05/09/2004 Refill [facility] Jose Stack, DO Refill [address] [facility][1] [address] [place] [address] [place], [place] [phone] [address] (Wo rk) Social History Tobacco Use Types Packs/Day Years Used Date Smoking Tobacco: Never Alcohol Use Standard Drinks/Week Comments Not Asked 0 (1 standard drink = 0.6 oz pure alcoho l) Sex Assigned at Date Recorded Not on file documented as of this encounter Nursing Notes 05/09/2004 11:59 PM MEDICAL DOCTOR NUCLEAR MEDICINE Approved Prescriptions: Disp Refills ACIPHEX 20MG ORAL TABS 30 99 Sig: Take 1 tablet by mouth once a day Authorizing Provider: JOSE STACK Ordering User: NORBERTO ROBLES >> RUBY Prasad May 09, 2004 5:00 PM Last fill on [id number] for a quantity of 30 documented in this encounter Plan of Treatment Not on filedocumented as of this encounter Visit Diagnoses Diagnosis Brachial neuritis or radiculitis NOS Brachial neuritis or radiculitis nos documented in this encounter Care Teams Retort Pre Cooker Relationship Specialty Start Date End Date Jose Stack DO PCP - General 12/24/03 09/17/08 [address] [place] [address] documented as of this encounter
--- OUTSIDE RECORDS SUMMARY | 2022-01-17 22:26 | XMS_ITS | Encounter Summary ---
:1965 Author Organization [facility] Address [address] [place] [address] Care Team Providers Name Role Phone Unassigned, Provider Primary Care Provider Unavailable Encounter Details Date Type Department Care Team Description 05/13/2001 Orders Only Blank Burleson APRN, INSPECTOR OPTICAL INSTRUMENT [address] [place], [place] [address] [place] [address] (Wo rk) Social History Tobacco Use Types Packs/Day Years Used Date Smoking Tobacco: Never Assessed Sex Assigned at Date Recorded Not on file documented as of this encounter Plan of Treatment Not on filedocumented as of this encounter Procedures Procedure Name Priority Date/Time Associated Diagnosis Comme nts GLUCOSE - FASTING > Routine 05/13/2001 8:47 AM Re sults for this 8 HRS FASTING BANK PRESIDENT procedure are in the results section. documented in this encounter Results (ABNORMAL) GLUCOSE - FASTING > 8 HRS FASTING (05/13/2001 8:47 AM BANK PRESIDENT) [facility] Time Signature Glucose 119 (H) 70 - 110 [facility] mg/dl Hours Fasting 10 hours [facility] Specimen Anatomical Collection Method Collection Time Receive d Time (Source) Location / / Volume Laterality 05/13/2001 8:47 AM 1 8:48 BANK PRESIDENT AM BANK PRESIDENT Blank Perez APRN, CNP LAB_1 Performing Organization Address City/State/ZIP Code Phon e Number [facility] [phone] [facility] [address] [address] documented in this encounter Visit Diagnoses Not on filedocumented in this encounter Care Teams Racecar Driver Relationship Specialty Start Date End Date Unassigned, Provider PCP - General 09/18/08 [address] [place] [address] documented as of this encounter
--- OUTSIDE RECORDS SUMMARY | 2022-01-17 22:26 | XMS_ITS | Encounter Summary ---
:1965 Author [facility] Address [address], [place] [address] Care Team Providers Name Role Phone Greyson Gonzalez MD Primary Care Provider Encounter Details Date Type Department Care Team Description 10/14/[address] [facility] Internal REMBERTO Colin BACK PA IN(ACUTE)<6 WEEKS; Medicine Jose Allan DO LOW BACK PAIN (CHRONIC)>6 WEEKS; [address] [facility] [address] [place] [address] [place], [place] [phone] Social History Tobacco Use Types Packs/Day Years Used Date Smoking Tobacco: Never Assessed Sex Assigned at Date Recorded Not on file documented as of this encounter Progress Notes Jose Colin - 10/14/2001 12:00 AM CDTCHIEF COMPLAINT: 1) Back pain. 2) Possible UTI. S: The patient is a 36-year-old female who comes in for the following 2 complaints. The patient has had chronic low back pain and neck pain for several years including having surgery on her neck. 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 This is her usual symptoms of her chronic back pain. Her last episode was in March of 2001, and at that time she was prescribed percocet and Naprosyn, which seemed to help with the pain. The patient said unfortunately she was not able to have any bed rest after this episode because she had to work. She stands on her feet most of the day, which seemed to make the pain much worse and exacerbate the length of the normal pain. The patient went in today and was not able to continue her job, so that is why she came her to be evaluated. While she does have some pain down her left leg she denies any paresthesias or any type of weakness in her left leg, or any loss of bowel or bladder function. The patient also complains of frequency and burning sensations for the last 2 days. She denies any fever or chills or any flank pain. O: Weight is 200, temperature 97.6, pulse 84, respirations 16. Her abdomen is soft and nontender. Positive bowel sounds. No suprapubic tenderness. Her back shows no flank pain consistent with a pyelonephritis. Back exam, musculoskeletal cedeno, shows some decreased range of motion in all valdez, especially in left side bending and left rotation, but neurologically, there were no focal deficits appreciated or deep tendon reflexes that were inappropriate. A and P: 1. Acute and chronic back pain. The patient was given a back to work slip for 2 days rest. She is to use ice and/or heat to the area. She was given a prescription, once again, for Naprosyn and percocet. She was told to slowly increase her activities of daily living and to not do anything out of the ordinary to exacerbate her pain. 2. Urinary tract infection. The patient was given a prescription for Bactrim-DS b.i.d. for 10 days. This was therecommendation as per the patient's urinalysis that was obtained. The micro was fairly bland, the macro did show leukocyte esterase and trace blood. IN SUMMARY: Acute and chronic back pain, urinary tract infection. cc: documented in this encounter Plan of Treatment Not on filedocumented as of this encounter Visit Diagnoses Diagnosis Lumbago Other unspecified back disorder Urinary tract infection, site not specif ied documented in this encounter Care Teams Vision Care Associate Relationship Specialty Start Date End Date Greyson Gonzalez MD PCP - General 04/15/01 12/23/03 [address] [place] [address] documented as of this encounter
--- OUTSIDE RECORDS SUMMARY | 2022-01-17 22:26 | XMS_ITS | Encounter Summary ---
:1965 Author Organization [facility] Address [address] [place] [address] Care Team Providers Name Role Phone Greyson Gonzalez MD Primary Care Provider Encounter Details Date Type Department Care Team Description 08/22/2002 Office Visit [facility] Internal Greyson Gonzalez, JOINT PAIN-SHLDER; Medicine PAIN IN LIMB 205 [facility] [address] [place] [address] [place], [place] [phone] (Wo rk) Social History Tobacco Use Types Packs/Day Years Used Date Smoking Tobacco: Never Assessed Sex Assigned at Date Recorded Not on file documented as of this encounter Last Filed Vital Signs Vital Sign Reading Time Taken Comments Blood Pressure 108/56 08/22/2002 4:20 PM MANAGER [facility] Pulse 72 08/22/2002 4:20 PM [facility] Temperature - - Respiratory Rate 12 08/22/2002 4:20 PM [facility] Oxygen Saturation - - Inhaled Oxygen Concentration - - Weight 71.2 kg (157 lb) 08/22/2002 4:20 PM [facility] Height - - Body Mass Index - - documented in this encounter Progress Notes 08/22/2002 4:20 PM MANAGER CRITICAL CARE UNIT Megan Choi is here today for R shoulder pain. Are you having other pain today, that you want to discuss with the provider? -NO Preventive Services up to date? -YES Immunizations up to date? -YES Do you ever feel physically threatened or emotionally afraid? -NO Tobacco Status reviewed? (see History Social-Substance) -YES club lounge attendant offered? -NOT APPLICABLE. Aspirin taken daily? -NO BP was taken on the RIGHT arm. Large cuff used? -NO Health Education given? -NO. Current prescriptions: MULTIPLE VITAMIN TABS OR, 1 qd, D: 30, R: 0 ACIPHEX 20MG ORAL TABS, TAKE 1 TABLET by mouthDAILY, D: 30, R: 0 Erythromycin Contact phone number [phone] (home) [phone] (work), alternate phone number . Liya Ayers LPN 08/22/2002 4:35 PM Greyson Gonzalez Karthik - 08/22/2002 12:00 AM CSTSUBJECTIVE: The patient reports that for about one month without defined preceding trauma, she has had a persistent problem with pain in her right shoulder. Discomfort, which is generally a constant dull ache worsens as the day progresses and by the end of the day is a sharp, throbbing pain. Towards the end of the day, she will also get extension of discomfort along the extensor surface of the right upper extremity down to the wrist. This has been associated with tingling, numbness, but no extremity weakness. She has not noticed joint swelling, erythema, or warmth. Although she has a history of neck pain reporting that in September 2000, she had C5 through C7 cervical spine fusion, she has not recently had neck pain. The patient has derived some benefit from Aleve, reporting that she has been taking this on a regular basis. 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 OBJECTIVE: Blood pressure 108/56. Pulse 72. Respiratory rate 12. The cervical spine had good range of motion and was nontender to palpation. Also noting that manipulation of the cervical spine did not affect her symptoms. The right shoulder and elbow had good range of motion. No shoulder swelling, erythema, bruising or increased warmth to touch was noted. The patient had reproducible tenderness with palpation along the anterior aspect of the right shoulder joint. Upper extremity motor strength and soft touch sensation was grossly intact and deep tendon reflexes were symmetrically present at the biceps region. ASSESSMENT: Right shoulder and upper extremity pain. PLAN: The patient is to try and have her work station assessed for ergometric appropriateness and she is to try and modify her work activities as possible. She is to try a scheduled course of warm packs to the area of concern. I offered a prescription of nonsteroidal anti-inflammatory medication, but she elected to continue with Aleve. Given she appears to have bursitis, I suggested a steroid injection. She is going to see Shyla Perdomo on August 25, 2002 for the steroid injection. I discussed with the patient the possibility of physical therapy, but she is going to hold off on physical therapy for now. She is to return if the above noted treatment does not correct the problem and immediately if symptoms should progress or change in any way. IN SUMMARY: Right shoulder and upper extremity pain. cc: [facility] Greyson Gonzalez - 08/22/2002 12:00 AM MANAGER CRITICAL CARE UNIT [facility] documented in this encounter Plan of Treatment Not on filedocumented as of this encounter Visit Diagnoses Diagnosis Pain in joint, shoulder region Pain in limb documented in this encounter Care Teams Fire Watcher Relationship Specialty Start Date End Date Greyson Gonzalez MD PCP - General 04/15/01 12/23/03 [facility] [place] [address] documented as of this encounter
--- OUTSIDE RECORDS SUMMARY | 2022-01-17 22:26 | XMS_ITS | Encounter Summary ---
:1965 [facility] Address [address] [place] [address] Care Team Providers Name Role Phone Greyson Gonzalez MD Primary Care Provider Encounter Details Date Type Department Care Team Description 09/08/2002 Orders Only [facility] Blank Perez APRN, PIN DRAFTING MACHINE TENDER 205 [facility] [address] [place] [address] [place] [address] (Wo rk) Social History Tobacco [...] Comme nts LIPID PANEL, FAST > Routine 09/08/2002 4:51 PM Re sults for this 12 HOUR FIRE PREVENTION CAPTAIN procedure are i n the results section. documented in this encounter Results (ABNORMAL) CHOLESTEROL LIPID PANEL FAST >12HR FAST (09/08/2002 4:51 PM FIRE PREVENTION CAPTAIN) P athologist Signature Cholesterol 152 <200 mg/dl [facility] Triglyceride 82 <200 mg/dl [facility] HDL 34 (L) >35 mg/dl [facility] LDL, Calc. 102 mg/dl [facility] Hours Fasting 12 hours [facility] Specimen Anatomical Collection Method Collection Time Receive d Time (Source) Location / / Volume Laterality 09/08/2002 4:51 PM 3 4:51 FIRE PREVENTION CAPTAIN PM FIRE PREVENTION CAPTAIN Blank Perez APRN, PIN DRAFTING MACHINE TENDER LAB_1 Performing Organization Address City/State/ZIP Code Phon e Number [facility] [phone] [facility] [address] [address] documented in this encounter Visit Diagnoses Not on filedocumented in this encounter Care Teams Copy Supervisor Relationship Specialty Start Date End Date Greyson Gonzalez MD PCP - General 04/15/01 12/23/03 [address] [place], [place] [phone] documented as of this encounter
--- OUTSIDE RECORDS SUMMARY | 2022-01-17 22:26 | XMS_ITS | Encounter Summary ---
:1965 Author Organization [facility] Address [address] [place] [address] Care Team Providers Name Role Phone Greyson Gonzalez MD Primary Care Provider Encounter Details Date Type Department Care Team Description 10/14/2001 Orders Only Yeyo Colin, DO [address] [place] [address] (Wo rk) Social History Tobacco Use Types Packs/Day Years Used Date Smoking Tobacco: Never Assessed Sex Assigned at Date Recorded Not on file documented as of this encounter Plan of Treatment Not on filedocumented as of this encounter Procedures Procedure Name Priority Date/Time Associated Diagnosis Comme nts UA MICRO Routine 10/14/2001 1:44 PM Results f or this CDT procedure are i n the results section . UA MICRO IF Routine 10/14/2001 1:44 PM Results f or this CDT procedure are i n the results section . documented in this encounter Results UA MICRO (10/14/2001 1:44 PM CDT) P athologist Signature RBC'S 0-3 0 - 3 /hpf [facility] WBC'S 0-2 0 - 5 /hpf [facility] Epith, 0 /hpf [facility] Squamous Bact Few [facility] Casts 0 /lpf [facility] Specimen Anatomical Collection Method Collection Time Receive d Time (Source) Location / / Volume Laterality 10/14/2001 1:44 PM 2 1:45 CDT PM CDT Jose Colin DO LAB_1 Performing Organization Address City/State/ZIP Code Phon e Number [facility] [phone] [phone] (ABNORMAL) UA MICRO IF (10/14/2001 1:44 PM CDT) athologist Signature Appr Yellow [facility] Appr Clear [facility] Sp Gr 1.010 1.005 - [facility] 1.030 Leuk Sml (A) [facility] Nitr Neg [facility] pH 7.0 4.5 - 8.0 [facility] Prot Neg mg/dl [facility] Gluc Neg mg/dl [facility] Ket Neg mg/dl [facility] Urob 0.2 0.2 - 1.0 [facility] EU/dl Bili Neg [facility] Blood Tr (A) [facility] Specimen Anatomical Collection Method Collection Time Receive d Time (Source) Location / / Volume Laterality 10/14/2001 1:44 PM 2 1:45 CDT PM CDT Jose Colin DO LAB_1 Performing Organization Address City/State/[facility] Code Phon e Number [facility] [phone] [address] documented in this encounter Visit Diagnoses Not on filedocumented in this encounter Care Teams Arranging Funeral Director Relationship Specialty Start Date End Date Greyson Gonzalez MD PCP - General 04/15/01 12/23/03 [address] [place] [address] documented as of this encounter
--- OUTSIDE RECORDS SUMMARY | 2022-01-17 22:27 | XMS_ITS | Encounter Summary ---
:1965 Author Organization [facility] Address [address] [place] [address] Care Team Providers Name Role Phone Noreen Hills APRN, CNP Unavailable [phone] Noreen Hills APRN, CNP Primary Care Provider [phone] Kalyan Galvan Unavailable Unavailable Eduardo Sharma MD Unavailable Marcelo Artis PA-C Unavailable [phone] Encounter Details Date Type Department Care Team Description 01/03/2021 Travel Social History Tobacco Use Types Packs/Day [...] How often do you attend sabianism or christianity Patient refused 08/08/2019 services? Do [...] documented as of this encounter Care Teams Gis Scientist Relationship Specialty Start Date End Date Noreen Hills PCP - General Nurse Practitioner 01/09/19 12/12/21 SEAN Haley PROGRAM AIDE [address] [facility] [place] [place] [address] Noreen Hills Assigned PCP 06/16/18 SEAN Haley PROGRAM AIDE [address] [facility] [address] [place] [phone] Kalyan Galvan Personal Advocate & 08/08/19 Liaison (PAL) Eduardo Sharma MD Assigned Sleep Provider 04/02/20 05/07/21 [address] [facility] [address] [place] [address] Marcelo Artis Assigned Musculoskeletal 08/25/20 08/20/21 MIKAYLA Nuno Provider [address] [facility] [address] [place] [address] documented as of this encounter
--- OUTSIDE RECORDS SUMMARY | 2022-01-17 22:27 | XMS_ITS | Encounter Summary ---
:1965 Author Organization [facility] Address [address] [place] [address] Care Team Providers Name Role Phone Noreen Hills APRN, CNP Unavailable [phone] Noreen Hills APRN, CNP Primary Care Provider [phone] Kalyan Galvan Unavailable Unavailable Eduardo Sharma MD Unavailable Marcelo Artis PA-C Unavailable [phone] Reason for Visit Reason Comments Medication Refill Encounter Details Date Type Department Care Team Description 12/20/[address] [facility] Noreen Hills, Medication Refill Pino ESTRADA RECONDITIONING ASSOCIATE [address] [facility] [address] [place] [address] [address] [place] [address] [address] [place] [address] [phone] Social History Tobacco Use Types Packs/Day Years [...] How often do you attend anabaptist or lutheran Patient refused 08/08/2019 services? Do you belong to any clubs or organizations such as No 08/08/2019 anabaptist groups, unions, fraternal or athletic groups, or [...] encounter Miscellaneous Notes Telephone Encounter - Wilda Aponte RN - 12/22/2020 10:44 AM CDT Prescription approved per [facility] Refill Protocol. Wilda Aponte RN, BSN Message handled by CLINIC NURSE. documented in this encounter Plan of Treatment Not on filedocumented as of this encounter Visit Diagnoses Diagnosis Gastroesophageal reflux disease without esophagitis Esophageal reflux documented in this encounter Additional Health Concerns Assessment Noted Time PHQ-9 Depression Total Score: 7 11/10/2020 1:31 PM CDT documented as of this encounter Care Teams Refractory Products Supervisor Relationship Specialty Start Date End Date Noreen Hills PCP - General Nurse Practitioner 01/09/19 12/12/21 SEAN Haley RECONDITIONING ASSOCIATE [address] [facility] [place] [address] Noreen Hills Assigned PCP 06/16/18 SEAN Haley RECONDITIONING ASSOCIATE [address] [facility] [place] [address] Kalyan Galvan Personal Advocate & 08/08/19 Liaison (PAL) Eduardo Sharma MD Assigned Sleep Provider 04/02/20 05/07/21 [address] [facility] [address] [place] [address] Marcelo Artis Assigned Musculoskeletal 08/25/20 08/20/21 MIKAYLA Nuno Provider [address] [facility] [address] [place] [address] documented as of this encounter
--- OUTSIDE RECORDS SUMMARY | 2022-01-17 22:27 | XMS_ITS | Encounter Summary ---
:1965 Author Organization [facility] [place] Address [address] [place] [address] Care Team Providers Name Role Phone Noreen Hills APRN BROILER MANAGER Unavailable [phone] Noreen Hills APRN BROILER MANAGER Primary Care Provider [phone] Kalyan Galvan Unavailable Unavailable Lashae Trevino [facility] Unavailable [phone] Eduardo Sharma MD Unavailable Marcelo Artis PA-C Unavailable [phone] Rodrigo Man PA-C Unavailable [phone] Encounter Details Date Type Department Care Team [...] How often do you attend quaker or synagogue Patient refused 08/08/2019 services? Do [...] documented as of this encounter Care Teams Flavoring Oil Filterer Relationship Specialty Start Date End Date Noreen Hills PCP - General Nurse Practitioner 01/09/19 12/12/21 SEAN Haley BROILER MANAGER [address] [facility] [place] [address] Noreen Hills Assigned PCP 06/16/18 SEAN Haley BROILER MANAGER [address] [facility] [address] [place] [address] Kalyan Galvan Personal Advocate & 08/08/19 Liaison (PAL) Lashae Trevino Pharmacist Pharmacist 10/14/19 12/01/20 [facility] [address] [facility] [address] [place], [place] [id number] Eduardo Sharma MD Assigned Sleep Provider 04/02/20 05/07/21 [address] [place] [address] Marcelo Artis Assigned Musculoskeletal 08/25/20 08/20/21 MIKAYAL Nuno Provider [address] [facility] [address] [place], [place] [address] Rodrigo Man Assigned Surgical 08/25/2011/27 MIKAYLA Lacy Provider [address] [place] [address] documented as of this encounter
--- OUTSIDE RECORDS SUMMARY | 2022-01-17 22:27 | XMS_ITS | Encounter Summary ---
:1965 Author Organization [facility] Address [address] [place] [address] Care Team Providers Name Role Phone Unassigned, Provider Primary Care Provider Unavailable Encounter Details Date Type Department Care Team Description 03/28/2001 Orders Only Blank Burleson, REPAIRER ENGINE PRODUCTION, MANUFACTURING ENGINEER ASSEMBLY [address] [place], [place] [address] [place] [address] (Wo rk) Social History Tobacco Use Types Packs/Day Years Used Date Smoking Tobacco: Never Assessed Sex Assigned at Date Recorded Not on file documented as of this encounter Plan of Treatment Not on filedocumented as of this encounter Procedures Procedure Name Priority Date/Time Associated Diagnosis Comme nts HEMOGLOBIN, BLOOD Routine 03/28/2001 10:56 AM Res ults for this CDT procedure are i n the results section. LIPID PANEL, FAST > Routine 03/28/2001 10:56 AM R esults for this 12 HOUR CDT procedure are i n the results section. DHEA SULFATE Routine 03/28/2001 10:56 AM Results for this CDT procedure are i n the results section. TESTOSTERONE, MALES Routine 03/28/2001 10:56 AM R esults for this CDT procedure are i n the results section. TSH, SENSITIVE Routine 03/28/2001 10:56 AM Result s for this (WITH REFLEX) CDT procedure are in the results section. documented in this encounter Results DHEA SULFATE (03/28/2001 10:56 AM CDT) P athologist Signature DHEA Sulfate 1.7 0.5 - 2.7 [facility] mcg/ml Specimen Anatomical Collection Method Collection Time Receive d Time (Source) Location / / Volume Laterality 03/28/2001 10:56 03/28/2001 AM CDT 10:57 AM CDT Blank Perez APRN, CNP LAB_1 Performing Organization Address [facility]/ZIP Code Phon e Number [facility] [phone] [facility] [address] [place] [phone] TSH, SENSITIVE (03/28/2001 10:56 AM CDT) P athologist Signature TSH 1.59 0.30 - 5.00 [facility] uIU/ml Thyroid Meds No [facility] Specimen Anatomical Collection Method Collection Time Receive d Time (Source) Location / / Volume Laterality 03/28/2001 10:56 03/28/2001 AM CDT 10:57 AM CDT Blank Perez APRN, CNP LAB_1 Performing Organization Address [facility] Code Phon e Number [facility] [employer] [phone] [facility] [address] [place] [phone] TESTOSTERONE (03/28/2001 10:56 AM CDT) P athologist Signature Testosterone 34 20 - 80 [facility] ng/dl Specimen Anatomical Collection Method Collection Time Receive d Time (Source) Location / / Volume Laterality 03/28/2001 10:56 03/28/2001 AM CDT 10:57 AM CDT Blank Perez APRN, CNP LAB_1 Performing Organization Address [facility] Phon e Number [facility] [phone] [facility] [address] [place] [phone] HEMOGLOBIN, BLOOD (03/28/2001 10:56 AM CDT) P athologist Signature Hemoglobin 14.6 12.0 - 16.0 [facility] g/dl Specimen Anatomical Collection Method Collection Time Receive d Time (Source) Location / / Volume Laterality 03/28/2001 10:56 03/28/2001 AM CDT 10:57 AM CDT Blank Perez APRN, CNP LAB_1 Performing Organization Address City/[facility] Phon e Number [facility] [phone] [facility] [address] [place] [phone] (ABNORMAL) CHOLESTEROL LIPID PANEL FAST >12HR FAST (03/28/2001 10:56 AM CDT) Component Value Ref Test Analysis Performed At [facility] Range Method Time Signature Cholesterol 225 (H) <200 [facility] mg/dl Cholesterol Result should not be interpreted without [facility] the patient's history of cardiovascular risk factors. Triglyceride 106 <200 [facility] mg/dl HDL 34 (L) >35 [facility] mg/dl LDL, Calc. 170 mg/dl [facility] Hours Fasting 12 hours [facility] Specimen Anatomical Collection Method Collection Time Receive d Time (Source) Location / / Volume Laterality 03/28/2001 10:56 03/28/2001 AM CDT 10:57 AM CDT Blank Perez APRN, MANUFACTURING ENGINEER ASSEMBLY LAB_1 Performing Organization Address [facility] Phon e Number [facility] [phone] [address] documented in this encounter Visit Diagnoses Not on filedocumented in this encounter Care Teams Pre School Manager Relationship Specialty Start Date End Date Unassigned, Provider PCP - General 09/18/[address] [place] [address] documented as of this encounter
--- OUTSIDE RECORDS SUMMARY | 2022-01-17 22:27 | XMS_ITS | Encounter Summary ---
:1965 [facility] Address [address] [place] [address] Care Team Providers Name Role Phone Unassigned, Provider Primary Care Provider Unavailable Encounter Details Date Type Department Care Team Description 04/22/2001 Orders Only Blank Burleson, VARNISH FINISHER, ENTERPRISE RECORDS ANALYST [address] [place], [place] [phone] [place] [address] (Wo rk) Social History Tobacco Use Types Packs/Day Years Used Date Smoking Tobacco: Never Assessed Sex Assigned at Date Recorded Not on file documented as of this encounter Plan of Treatment Not on filedocumented as of this encounter Procedures Procedure Name Priority Date/Time Associated Diagnosis Comme nts INSULIN,SERUM Routine 04/22/2001 7:26 AM Results for this [facility] procedure are i n the results section. LH Routine 04/22/2001 7:26 AM Results f or this [facility] procedure are i n the results section. FSH Routine 04/22/2001 7:26 AM Results f or this [facility] procedure are i n the results section. GLUCOSE - FASTING > Routine 04/22/2001 7:26 AM Re sults for this 8 HRS FASTING [facility] procedure are in the results section. documented in this encounter Results INSULIN,SERUM (04/22/2001 7:26 AM [facility]) [facility] Method Time Signature Insulin, 16 MIU/L [facility] Serum Insulin, Reference [facility] Serum range: 6 to 27 Comment Referred to Ranker, 1355 [facility] [place], [place] Specimen Anatomical Collection Method Collection Time Receive d Time (Source) Location / / Volume Laterality 04/22/2001 7:26 AM 1 7:27 [facility] AM [facility] Blank Perez APRN, CNP LAB_1 Performing Organization Address City/[facility] Phon e Number [facility] [email or web address] [phone] [phone] (ABNORMAL) GLUCOSE - FASTING > 8 HRS FASTING (04/22/2001 7:26 AM [facility]) Analysis Performed At Patho logist Time Signature Glucose 136 (H) 70 - 110 [facility] mg/dl Hours Fasting 13 hours [facility] Specimen Anatomical Collection Method Collection Time Receive d Time (Source) Location / / Volume Laterality 04/22/2001 7:26 AM 1 7:27 [place] AM [place] Blank Perez APRN, CNP LAB_1 Performing Organization Address [facility] Phon e Number [employer] [phone] [address] LH (04/22/2001 7:26 AM [place]) [facility] Method Time Signature LH 6.1 mIU/ml [facility] LH Expected Values- [facility] Prepubertal: ??<6.0 Follicular: ??1.9-12.5 Midcycle: ??8.7-76.3 Luteal: ??<1.0-16.9 Postmenopausal: ??5.0-52.3 Specimen Anatomical Collection Method Collection Time Receive d Time (Source) Location / / Volume Laterality 04/22/2001 7:26 AM 1 7:27 [place] AM [place] Blank Perez APRN, CNP LAB_1 Performing Organization Address [facility] [place] [facility] Phon e Number [employer] [phone] [phone] FSH (04/22/2001 7:26 AM [place]) [facility] Method Time Signature FSH 5.5 mIU/ml [facility] FSH Expected Values- [facility] Prepubertal: ??<5.0 Follicular: ??2.5-10.2 Midcycle: ??3.4-33.4 Luteal: ??1.5-9.1 Postmenopausal: ??23.0-116.3 Specimen Anatomical Collection Method Collection Time Receive d Time (Source) Location / / Volume Laterality 04/22/2001 7:26 AM 1 7:27 [place] AM [place] Blank Perez VARNISH FINISHER, ENTERPRISE RECORDS ANALYST LAB_1 Performing Organization Address City/State/ZIP Code Phon e Number [facility] [phone] [facility] [address] [address] documented in this encounter Visit Diagnoses Not on filedocumented in this encounter Care Teams Steamfitter Supervisor Relationship Specialty Start Date End Date Unassigned, Provider PCP - General 09/18/08 [address] [place] [address] documented as of this encounter
--- OUTSIDE RECORDS SUMMARY | 2022-01-17 22:27 | XMS_ITS | Encounter Summary ---
:1965 Author Organization [facility] Address [address] [place] [address] Care Team Providers Name Role Phone Greyson Gonzalez MD Primary Care Provider Encounter Details Date Type Department Care Team Description 03/28/2001 Orders Only [facility] Obstetrics and Anayeli Giraldo, KELP OR SEAGRASS GATHERER, GARNISHER Gynecology [address] [facility] [address] [facility] [place] [address] [place] [address] [phone] Social History Tobacco Use Types Packs/Day Years Used Date Smoking Tobacco: Never Assessed Sex Assigned at Date Recorded Not on file documented as of this encounter Plan of Treatment Not on filedocumented as of this encounter Procedures Procedure Name Priority Date/Time Associated Diagnosis Comme nts GROWTH MEDIA MIXER MUSHROOM CYTOLOGY Routine 03/28/2001 10:40 AM Results for this CDT procedure are i n the results section . documented in this encounter Results GROWTH MEDIA MIXER MUSHROOM CYTOLOGY (03/28/2001 10:40 AM CDT) [facility] Method Time Signature Airplane Pilot Crop Dusting Cytology Airplane Pilot Crop Dusting Cytology Report [facility] Patient Name: PADMINI CHOI Taken: 03/28/01 Received: 04/01/01 Reported: 04/23/01 Physician(s): BLANK GIRALDO ([id number]) ? [id number] Final Cytologic Diagnosis Cervical Endocervical,routine: ? Satisfactory for evaluation. ??Endocervical cells and/or squamous metaplastic cells ??present. This pap smear was sent to [facility], [address] [place] [address] ??[place] ??[id number] for evaluation. ?? Their results are as follows. ? WITHIN NORMAL LIMITS (WNL) ? Comment qcs/04/23/01 Electronically Signed Out By [employer], [facility], [facility] ? Source of Specimen(s) Cervical Endocervical,routine Clinical History Date of Last Menstrual Period: ? 03/17/01 Menstrual History: Contraceptive History: Cancer History: Infection History: Treatment History: Other Clinical Conditions: Other Related Clinical Data Specimen Anatomical Collection Method Collection Time Receive d Time (Source) Location / / Volume Laterality 03/28/2001 10:40 04/01/2001 AM CDT 10:40 AM CDT Blank Giraldo APRN, SHELLEY UNLISTED CODE Performing Organization Address City/State/ZIP Code Phon e Number [address] [address] [place], [place] [phone] documented in this encounter Visit Diagnoses Not on filedocumented in this encounter Care Teams Software Test Analyst Relationship Specialty Start Date End Date Greyson Gonzalez MD PCP - General 04/15/01 12/23/03 [address] [place], [place] [id number] documented as of this encounter
--- OUTSIDE RECORDS SUMMARY | 2022-01-17 22:27 | XMS_ITS | Encounter Summary ---
:1965 Author Organization [facility] Address [address] [place] [address] Care Team Providers Name Role Phone Noreen Hills APRN, CNP Unavailable [phone] Noreen Hills APRN, CNP Primary Care Provider [phone] Kalyan Galvan Unavailable Unavailable Eduardo Sharma MD Unavailable Marcelo Artis PA-C Unavailable [phone] Reason for Visit Reason Onset Date Comments Panel Management 04/04/2021 phys,pap, colon, thomas mo, PHQ9, Diab f/u, Imm Encounter Details Date Type Department Care Team Description 04/04[facility]20[facility] Pino Haley APRN CNP (phys,pap, colon, [address] [facility] mammo , PHQ9, Diab f/u, [facility] [place] [address]) [address] [place] [address] [place] [address] [phone] Social History Tobacco Use Types Packs/Day Years [...] How often do you attend anglican or christianity Patient refused 08/08/2019 services? Do [...] Influenza and Shingrix Type of outreach: Sent Balakam message. Questions for provider review: None Christi Panda CMA Chart routed to Care Team. documented in this encounter Plan of Treatment Not on filedocumented as of this encounter Visit Diagnoses Not on filedocumented in this encounter Additional Health Concerns Assessment Noted Time PHQ-9 Depression Total Score: 7 11/10/2020 1:31 PM CDT documented as of this encounter Care Teams Technician Trainee Relationship Specialty Start Date End Date Noreen Hills PCP - General Nurse Practitioner 01/09/19 12/12/21 SEAN Haley BEATER AND PULPER FEEDER [address] [facility] [place] [address] Noreen Hills Assigned PCP 06/16/18 SEAN Haley BEATER AND PULPER FEEDER [address] [facility] [address] [place] [address] Kalyan Galvan Personal Advocate & 08/08/19 Liaison (PAL) Eduardo Sharma MD Assigned Sleep Provider 04/02/20 05/07/21 [address] [place], [place] [address] Marcelo Artis Assigned Musculoskeletal 08/25/20 08/20/21 MIKAYLA Nuno Provider [address] [facility] [address] [place], [place] [address] documented as of this encounter
--- OUTSIDE RECORDS SUMMARY | 2022-01-17 22:27 | XMS_ITS | Encounter Summary ---
:1965 Author Organization [facility] Address [address] [place] [address] Care Team Providers Name Role Phone Noreen Hills APRN, CNP Unavailable [phone] Noreen Hills APRN, CNP Primary Care Provider [phone] Kalyan Galvan Unavailable Unavailable Eduardo Sharma MD Unavailable Marcelo Artis PA-C Unavailable [phone] Reason for Visit Reason Comments Medication Refill Encounter Details Date Type Department Care Team Description 01/18/2021 Refill [facility] Noreen Hills, Medication Refill Pino ESTRADA AUTOMOTIVE SERVICE TECHNICIAN [address] [facility] [address] [place] [address] [address] [place] [address] [place] [address] [phone] Social History Tobacco Use Types Packs/Day Years [...] How often do you attend jewish or anabaptist Patient refused 08/08/2019 services? Do [...] this encounter Miscellaneous Notes Telephone Encounter - Randall Butt RN - 01/20/2021 3:04 PM CDT Prescription approved per [facility] Refill Protocol. Randall Butt RN documented in this encounter Plan of Treatment Not on filedocumented as of this encounter Visit Diagnoses Diagnosis Fibromyalgia Mylagia and myositis, unspecified documented in this encounter Additional Health Concerns Assessment Noted Time PHQ-9 Depression Total Score: 7 11/10/2020 1:31 PM CDT documented as of this encounter Care Teams Manager Game Relationship Specialty Start Date End Date Noreen Hills PCP - General Nurse Practitioner 01/09/19 12/12/21 SAEN Haley AUTOMOTIVE SERVICE TECHNICIAN [address] [facility] [place] [place] [address] Noreen Hills Assigned PCP 06/16/18 SEAN Haley AUTOMOTIVE SERVICE TECHNICIAN [address] [facility] [place] [place] [address] Kalyan Galvan Personal Advocate & 08/08/19 Liaison (PAL) Eduardo Sharma MD Assigned Sleep Provider 04/02/20 05/07/21 [address] [facility] [address] [place], [place] [address] Marcelo Artis Assigned Musculoskeletal 08/25/20 08/20/21 MIKAYLA Nuno Provider [address] [facility] [address] [place], [place] [address] documented as of this encounter
--- OUTSIDE RECORDS SUMMARY | 2022-01-17 22:27 | XMS_ITS | Encounter Summary ---
:1965 Author Organization [facility] Address [address] [address] Care Team Providers Name Role Phone Greyson Gonzalez MD Primary Care Provider Encounter Details Date Type Department Care Team Description 05/01/2001 Office Visit [place] diffuser operator Ult rasound IRREGULAR MENSTRUATION [address] [place], [place] [address] Social History Tobacco Use Types Packs/Day Years Used Date Smoking Tobacco: Never Assessed Sex Assigned at Date Recorded Not on file documented as of this encounter Progress Notes Alfredo Mcmahon - 05/01/2001 12:00 AM CSTThis Document has been Canceled. ET CHOPPER ASSEMBLER documented in this encounter Plan of Treatment Not on filedocumented as of this encounter Visit Diagnoses Diagnosis Irregular menstrual cycle documented in this encounter Care Teams Supervisor In Charge Relationship Specialty Start Date End Date Greyson Gonzalez MD PCP - General 04/15/01 12/23/03 [address] [place], [place] [phone] documented as of this encounter
--- OUTSIDE RECORDS SUMMARY | 2022-01-17 22:27 | XMS_ITS | Encounter Summary ---
:1965 Author Organization [facility] Address [address] [place] [address] Care Team Providers Name Role Phone Juanito Panda MD Primary Care Provider Unavailable Encounter Details Date Type Department Care Team Description 09/21/2000 Office Visit HOSPITALIST PROGRAM Sg Pal, LOW BACK PAIN (CHRONIC)>6 WE EKS; [address] MBBS GASTRITIS/DUODEN NOS W/O HEMORRH SOUTH [address] [place], [place] [address] [place] [address] (Wo rk) Social History Tobacco Use Types Packs/Day Years Used Date Smoking Tobacco: Never Assessed Sex Assigned at Date Recorded Not on file documented as of this encounter Plan of Treatment Not on filedocumented as of this encounter Visit Diagnoses Diagnosis Other unspecified back disorder Unspecified gastritis and gastroduodenit is without mention of hemorrhage documented in this encounter Care Teams Business Applications Analyst Relationship Specialty Start Date End Date Juanito Panda MD PCP - General 07/30/00 1140 1 documented as of this encounter
--- OUTSIDE RECORDS SUMMARY | 2022-01-17 22:27 | XMS_ITS | Encounter Summary ---
:1965 Author Organization [facility] Address [address] [place] [address] Care Team Providers Name Role Phone Noreen Hills APRN, CNP Unavailable [phone] Noreen Hills APRN, CNP Primary Care Provider [phone] Kalyan Galvan Unavailable Unavailable Eduardo Sharma MD Unavailable Marcelo Artis PA-C Unavailable [phone] Reason for Visit Reason Comments Consult multiple joint pain Consultation (Routine) - Closed Specialty Diagnoses / Procedures Referred By Contact Refer red To Contact Rheumatology Diagnoses Polyarthralgia Kavin Fitzgerald [facility] MIKAYLA Fernandez [facility] and [address] [place] [address] [place] [address] Phone: Referral ID Status Reason Start Date Expiration Date Visits Requ ested Visits Authorized [id number] Closed 11/12/2020 11/12/2021 1 1 Encounter Details Date Type Department Care Team Description 01/03/[address] [facility] Kristian Painting [facility] Poly[facility] [address] [place] [address] [address] [place] [address] Social History Tobacco Use Types Packs/Day Years [...] often do you attend oriental orthodox or latter-day Patient refused 08/08/2019 services? Do [...] of this encounter Visit Diagnoses Diagnosis Polyarthralgia Pain in joint, multiple sites documented in this encounter Additional Health Concerns Assessment Noted Time PHQ-9 Depression Total Score: 7 11/10/2020 1:31 PM CDT documented as of this encounter Care Teams Rn Nicu Relationship Specialty Start Date End Date Noreen Hills PCP - General Nurse Practitioner 01/09/19 12/12/21 SEAN Haley TERRA COTTA MOLD MAKER [address] [facility] [place] [address] Noreen Hills Assigned PCP 06/16/18 SEAN Hlaey TERRA COTTA MOLD MAKER [address] [facility] [address] [place] [address] Kalyan Galvan Personal Advocate & 08/08/19 Liaison (PAL) Eduardo Sharma MD Assigned Sleep Provider 04/02/20 05/07/21 [address] [place] [address] Marcelo Artis Assigned Musculoskeletal 08/25/20 08/20/21 MIKAYLA Nuno Provider [address] [facility] [address] [place], [place] [address] documented as of this encounter
--- OUTSIDE RECORDS SUMMARY | 2022-01-17 22:27 | XMS_ITS | Encounter Summary ---
:1965 Author Organization [facility] Address [address] [place] [address] Care Team Providers Name Role Phone Juanito Panda MD Primary Care Provider Unavailable Encounter Details Date Type Department Care Team Description 12/20/2000 Orders Only [facility] Internal Med Juanito Chandra MD [address] [place] [address] Social History Tobacco Use Types Packs/Day Years Used Date Smoking Tobacco: Never Assessed Sex Assigned at Date Recorded Not on file documented as of this encounter Plan of Treatment Not on filedocumented as of this encounter Visit Diagnoses Not on filedocumented in this encounter Care Teams Microwave Engineer Relationship Specialty Start Date End Date Juanito Panda MD PCP - General 07/30/00 1 documented as of this encounter
--- OUTSIDE RECORDS SUMMARY | 2022-01-17 22:27 | XMS_ITS | Encounter Summary ---
:1965 Author [facility] Address [address], [place] [address] Care Team Providers Name Role Phone Juanito Panda MD Primary Care Provider Unavailable Encounter Details Date Type Department Care Team Description 03/18/2001 Orders Only [facility] Internal Med Greyson Romero MD [address] [facility] [address] [place] [address] [place] [address] [phone] (Wo rk) Social History Tobacco Use Types Packs/Day Years Used Date Smoking Tobacco: Never Assessed Sex Assigned at Date Recorded Not on file documented as of this encounter Plan of Treatment Not on filedocumented as of this encounter Visit Diagnoses Not on filedocumented in this encounter Care Teams Mud Worker Relationship Specialty Start Date End Date Juanito Panda MD PCP - General 07/30/000 1 documented as of this encounter
--- OUTSIDE RECORDS SUMMARY | 2022-01-17 22:27 | XMS_ITS | Encounter Summary ---
:1965 Author Organization [facility] Address [address] [place] [address] Care Team Providers Name Role Phone Noreen Hills APRN SPECIAL SERVICES SUPERVISOR Unavailable [phone] Noreen Hills APRN, CNP Primary Care Provider [phone] Kalyan Galvan Unavailable Unavailable Lashae Trevino [facility] Unavailable [phone] Eduardo Sharma MD Unavailable Marcelo Artis PA-C Unavailable [phone] Rodrigo Man PA-C Unavailable [phone] Encounter Details Date Type Department Care Team Description 11/16/2020 Telephone [facility] Noreen Hills Eagan APRN SPECIAL SERVICES SUPERVISOR [address] [facility] [address] [place] [address] [address] [place] [address] [place] [address] [phone] Social History Tobacco Use Types Packs/Day Years [...] How often do you attend scientologist or pentecostal Patient refused 08/08/2019 services? Do you belong to any clubs or organizations such as No 08/08/2019 scientologist groups, SourceDNAs, fraWonderHill or athletic groups, or school groups? How [...] V - 11/16/2020 1:31 PM CDT This securities underwriter [facility] [place]. Both locations have availability end of Decemberfor virtual visit (in-person at [place] location). Called and spoke with patient. Informed patient Rx has been sent to her local pharmacy. Discussed appointment scheduling with patient who is willing to do virtual visit. Patient is rescheduled for video visit on 01/03/2021 at 12:30 pm with same provider (Dr. Painting). Patient also added to wait list for sooner appointment. Provider updated. Barbara Mcdonough Vascular Ultrasound Technologist Telephone Encounter - Kavin Fitzgerald PA-C - 11/16/2020 1:15 PM CDT I sent her an rx for anti-inflammatory. It takes a few days to take effect. Can we try to get her into Rheum sooner? Her current appointment is Feb. Can we try [facility] or [facility] specialists in [place]? Kavin Fitzgerald PA-C Telephone Encounter - Sheeba Oscar RN - 11/16/2020 12:57 PM CDT Called pt. She says she has taken everything OTC and it does not touch it. She was going to send [employer] message last night but could not find [...] documented as of this encounter Care Teams Risk Management Director Relationship Specialty Start Date End Date Noreen Hills PCP - General Nurse Practitioner 01/09/19 12/12/21 SEAN Haley SPECIAL SERVICES SUPERVISOR [address] [facility] [place] [address] Noreen Hills Assigned PCP 06/16/18 SEAN Haley SPECIAL SERVICES SUPERVISOR [address] [facility] [place] [address] Kalyan Galvan Personal Advocate & 08/08/19 Liaison (PAL) Lashae Trevino Pharmacist Pharmacist 10/14/19 12/01/20 [facility] [address] [facility] [place] [id number] Eduardo Sharma MD Assigned Sleep Provider 04/02/20 05/07/21 [address] [place] [address] Marcelo Artis Assigned Musculoskeletal 08/25/20 08/20/21 MIKAYLA Nuno Provider [address] [facility] [address] [place], [place] [address] Rodrigo Man Assigned Surgical 08/25/2011/27 MIKAYLA Lacy Provider [address] [place], [place] [address] documented as of this encounter
--- OUTSIDE RECORDS SUMMARY | 2022-01-17 22:27 | XMS_ITS | Encounter Summary ---
:1965 Author Organization [facility] Address [address] [place] [address] Care Team Providers Name Role Phone Juanito Panda MD Primary Care Provider Unavailable Encounter Details Date Type Department Care Team Description 03/28/2001 Orders Only [facility] Obstetrics and Anayeil Perez, PASSENGER CONDUCTOR, TECHNICAL INTERN Gynecology [address] [address] [place], [place] [address] [phone] Social History Tobacco Use Types Packs/Day Years Used Date Smoking Tobacco: Never Assessed Sex Assigned at Date Recorded Not on file documented as of this encounter Procedure Notes Sfoia Lilly - 03/28/2001 12:00 AM CDTAssociated Order(s): RADIOLOGIC STUDY CLINICAL DATA: Flexion, extension. EXAMINATION: IN SUMMARY: C-SPINE - 03/28/01. FINDINGS: The patient is status post anterior fusion at C5-6-7. There is several millimeters of anterior subluxation of C6-C7, which is stable in flexion and extension. No other views are available for comparison. No other abnormalities are noted. Sofia Lilly MD cc: AUDREY Moffett Radiology SP documented in this encounter Plan of Treatment Not on filedocumented as of this encounter Procedures Procedure Name Priority Date/Time Associated Diagnosis Comme nts UNLISTED DX RADIOGRAPHIC 03/28/2001 Res ults for this PROCEDURE procedure are i n the results section . documented in this encounter Results RADIOLOGIC STUDY (03/28/2001) Anatomical Region Laterality Modality Other Specimen (Source) Anatomical Location Collection Method / Collectio n Time Received Time / Laterality Volume Transcriptions Maxx Sofia Alejandro - 03/28/2001 12:00 AM CD TCLINICAL DATA: Flexion, extension. EXAMINATION: IN SUMMARY: C-SPINE - 03/28. FINDINGS: The patient is status post ant erior fusion at C5-6-7. There is several millimeters of anterior subluxat ion of C6-C7, which is stable in flexion and extension. No other views ar e available for comparison. No other abnormalities are noted. Sofia Lilly MD cc: AUDREY Moffett Radiology SP Blank Perez PASSENGER CONDUCTOR, TECHNICAL INTERN PAPS documented in this encounter Visit Diagnoses Not on filedocumented in this encounter Care Teams Zoo Director Relationship Specialty Start Date End Date Juanito Panda MD PCP - General 07/30/00 1 documented as of this encounter
--- OUTSIDE RECORDS SUMMARY | 2022-01-17 22:27 | XMS_ITS | Encounter Summary ---
:1965 Author Organization [facility] Address [address] [place] [address] Care Team Providers Name Role Phone Noreen Hills APRN, CNP Unavailable [phone] Noreen Hills APRN, CNP Primary Care Provider [phone] Marcelo Artis PA-C Unavailable [phone] Reason for Visit Reason Onset Date Comments Panel Management 07/25/2021 phys, pap, mammo, co dk, diab, PHQ9, HELGA, imm Encounter Details Date Type Department Care Team Description 07/25/2021 Telephone [facility] Noreen Hills Panel Miriam nash (phys, Clinic Pino Haley APRN CNP pap, mammo, colon, [address] [facility] diab, PHQ9, HELGA, imm) [facility] [address] [place] [address] [place] [address] [phone] Social History Tobacco Use Types Packs/Day Years [...] How often do you attend muslim or christian Patient refused 08/08/2019 services? Do [...] review: None Christi Panda CMA Chart closed. MONITOR Telephone Encounter - Christi Panda MA - 07/28/2021 3:42 PM CST Patient Quality Outreach 2nd Attempt Patient is due for the following: Physical - Due after 08/08/20 And all due below NEXT STEPS: Schedule a yearly physical, mammogram, colonoscopy Type of outreach: Sent letter.+ PHQ9/HELGA Questions for provider review: None Christi Panda MA Chart routed to Care Team. MONITOR Telephone Encounter - Christi Panda MA - [...] physical, mammogram, colonoscopy Type of outreach: Sent iZettlet message.+ PHQ9/HELGA Questions for provider review: None Christi Panda MA Chart routed to Care Team. MONITOR documented in this encounter Plan of Treatment Not on filedocumented as of this encounter Visit Diagnoses Not on filedocumented in this encounter Additional Health Concerns Assessment Noted Time PHQ-9 Depression Total Score: 7 11/10/2020 1:31 PM CDT documented as of this encounter Care Teams Commodity Supervisor Relationship Specialty Start Date End Date Noreen Hills PCP - General Nurse Practitioner 01/09/19 12/12/21 SEAN Haley HYDROGEN PLANT OPERATOR [address] [facility] [address] [place], [place] [address] Noreen Hills Assigned PCP 06/16/18 SEAN Haley HYDROGEN PLANT OPERATOR [address] [facility] [address] [place], [place] [address] Marcelo Artis Assigned Musculoskeletal 08/25/20 08/20/21 MIKAYLA Nuno Provider [address] [address] documented as of this encounter
--- OUTSIDE RECORDS SUMMARY | 2022-01-17 22:27 | XMS_ITS | Encounter Summary ---
:1965 Author Organization [facility] Address [address] [place] [address] Care Team Providers Name Role Phone Noreen Hills APRN, CNP Unavailable [phone] Noreen Hills APRN, CNP Primary Care Provider [phone] Marcelo Artis PA-C Unavailable [phone] Reason for Visit Reason Comments Medication Refill Encounter Details Date Type Department Care Team Description 08/06/2021 Refill [facility] Noreen Hills Medication Refill Pino ESTRADA BILINGUAL ELEMENTARY SCHOOL TEACHER [address] [place] [address] [place] [address] [phone] Social History Tobacco Use Types Packs/Day Years [...] How often do you attend restoration or baptist Patient refused 08/08/2019 services? Do [...] 08/08/2021 2:33 PM CST Prescription approved per [facility] Refill Protocol. Marisa Panda RN P MACHINE OPERATOR documented in this encounter Plan of Treatment Not on filedocumented as of this encounter Visit Diagnoses Diagnosis Gastroesophageal reflux disease without esophagitis Esophageal reflux documented in this encounter Additional Health Concerns Assessment Noted Time PHQ-9 Depression Total Score: 7 11/10/2020 1:31 PM CDT documented as of this encounter Care Teams Pants Cutter Relationship Specialty Start Date End Date Noreen Hills PCP - General Nurse Practitioner 01/09/19 12/12/21 SEAN Haley BILINGUAL ELEMENTARY SCHOOL TEACHER [address] [facility] [place] [address] Noreen Hills Assigned PCP 06/16/18 SEAN Haley BILINGUAL ELEMENTARY SCHOOL TEACHER [address] [facility] [place] [address] Marcelo Artis Assigned Musculoskeletal 08/25/20 08/20/21 MIKAYLA Nuno Provider [address] [address] documented as of this encounter
--- OUTSIDE RECORDS SUMMARY | 2022-01-17 22:27 | XMS_ITS | Encounter Summary ---
:1965 Author Organization [facility] Address [address] [place] [address] Care Team Providers Name Role Phone Juanito Panda MD Primary Care Provider Unavailable Reason for Visit Reason Comments NEW MEMBER VISIT VIA INTERFACE Encounter Details Date Type Department Care Team Description 08/10/2000 Office Visit SP INTERNAL MED II Juanito Panda, NEURALGIA/NEURITIS NOS [address] [place] [address] Social History Tobacco Use Types Packs/Day Years Used Date Smoking Tobacco: Never Assessed Sex Assigned at Date Recorded Not on file documented as of this encounter Progress Notes Juanito Panda - 08/10/2000 12:00 AM CSTS: This 35 year-old female is a new patient. We have received some records from [facility] on [address] in [place], which are reviewed. These document that in May of this year she began having acute problem with pain in the right neck radiating to the right upper extremity. There was suspicion of herniated disc and a MRI was performed on 05/22/00. The report of this test verifies that there is a large central and right posterior lateral disc herniation at C6-7 with mild impingement of the right C7 nerve. There was a smaller; moderate sized left posterior lateral disc herniation at C5-6. 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 She was referred to Dr. Brandt of [facility]. She saw him on 06/14/00 and by that time her insurance had changed. Therefore, she needs a referral covering that date and future visits. Dr. Brandt had advised a laminectomy, but apparently the patient needed to work for a full year before she could have complete health benefits. She is now past that date and is ready to proceed with surgery. She has had other problems with her neck in the past including an injury in 1991 which improved with physical therapy and a subsequent reinjury in 1998. However, the symptoms she has had since May of this year are the worst symptoms she has ever had. She does not relate her problems to any work injury. She believes she has lost some slight strength in her right upper extremity and does not note any paresthesias. O: She is obese with weight 205 pounds. BP: 132/78. She can turn her head 75 degrees to the right and left. She has trouble touching her chin to her chest. The right trapezius and paracervical area is diffusely tender. Commercial Carpenter strength is slightly reduced on the right compared to the left. Reflexes in upper extremities are brisk and symmetric. I do not see any muscle atrophy. A: 1. Cervical radiculopathy with C5-6 and C6-7 disc herniation. 2. Dyspepsia/reflux. P: The patient also notes she has been taking Aciphex for relief of chronic heartburn and reflux symptoms. It has been effective and it seems to relapse whenever she discontinues it. Weight reduction recommended. She is given a referral to see Dr. Brandt again and would need a preoperative physical examination once an operative date has been decided. cc: MBLER HYDRAULIC BACKHOE documented in this encounter Plan of Treatment Not on filedocumented as of this encounter Visit Diagnoses Diagnosis Neuralgia, neuritis, and radiculitis, un specified documented in this encounter Care Teams Wheel Blocker Relationship Specialty Start Date End Date Juanito Panda MD PCP - General 07/30/000 1 documented as of this encounter
--- OUTSIDE RECORDS SUMMARY | 2022-01-17 22:27 | XMS_ITS | Encounter Summary ---
:1965 Author Organization [facility] Address [address] [place] [address] Care Team Providers Name Role Phone Noreen Hills APRN SAP TRAINER Unavailable [phone] Noreen Hills APRN, CNP Primary Care Provider [phone] Kalyan Galvan Unavailable Unavailable Eduardo Sharma MD Unavailable Marcelo Artis PA-C Unavailable [phone] Encounter Details Date Type Department Care Team Description 02/28/2021 [facility] Noreen Hills Eagan APRN SAP TRAINER [address] [facility] [address] [facility] [address] [place] [address] [place] [address] [phone] Social History Tobacco Use Types Packs/Day Years [...] How often do you attend bahai or mandaeism Patient refused 08/08/2019 services? Do [...] Notes Telephone Encounter - Lainey Wells - 02/28/2021 2:48 PM CDT See message to ptAlly Wells on 02/28/2021 at 2:48 PM Telephone Encounter - Noreen Hills APRN CNP - 02/28/2021 2:41 PM CDT 1. Due for labs. Pls schedule ALLEN 2. Due for physical. No need to wait for physical to do labs. Please schedule physical soonest available 3. Did she get a new pin drafting machine tender? Pls let us know who she wants to see and I'll place referral 4. Does she have FIT at home? If not, pickling grader at lab. If so, please send in documented in this encounter Plan of Treatment Not on filedocumented as of this encounter Visit Diagnoses Not on filedocumented in this encounter Additional Health Concerns Assessment Noted Time PHQ-9 Depression Total Score: 7 11/10/2020 1:31 PM CDT documented as of this encounter Care Teams Aquatic Life Laborer Relationship Specialty Start Date End Date Noreen Hills PCP - General Nurse Practitioner 01/09/19 12/12/21 SEAN Haley SAP TRAINER [address] [facility] [place] [address] Noreen Hills Assigned PCP 06/16/18 SEAN Haley SAP TRAINER [address] [facility] [place] [address] Kalyan Galvan Personal Advocate & 08/08/19 Liaison (PAL) Eduardo Sharma MD Assigned Sleep Provider 04/02/20 05/07/21 [address] [facility] [address] [place] [address] Marcelo Artis Assigned Musculoskeletal 08/25/20 08/20/21 MIKAYLA Nuno Provider [address] [facility] [address] [place], [place] [address] documented as of this encounter
--- OUTSIDE RECORDS SUMMARY | 2022-01-17 22:27 | XMS_ITS | Clinical Summary ---
:1965 Author Organization [facility] Address [address] [place] [address] Care Team Providers Name Role Phone Noreen Hills APRN INVESTIGATOR INTERNAL AFFAIRS Unavailable Allergies Active Allergy Reactions Severity Noted [...] use of insulin (H) fluticasone (FLONASE) 50 [place] 1-2 sprays into 16 g 11 Active [...] use. Address next visit Family history of AR (myocardial infarction) 8 Overview: At early age, father AR at age 40 Resolved Problems Problem Noted [...] Description 12/08/2021 Refill IM/Peds Jeana, Noreen Sudha, BRUSH MATERIAL PREPARER INVESTIGATOR INTERNAL AFFAIRS Medication Refill from Last 3 Months Immunizations [...] 4 Kidney Disease Brother 5 Cardiovascular Father AR early 40s, subseq uent bipass Diabetes Father Hypertension Father Lipids Father Diabetes Maternal Grandfather Hypertension Maternal Grandfather Lipids Maternal Grandfather Diabetes Maternal Grandmother Hypertension Maternal Grandmother Lipids Maternal Grandmother Arthritis Mother OA Cardiovascular Mother AR age 72 Diabetes Mother Type II Hypertension [...] How often do you attend pentecostal or samaritan Patient refused 08/08/2019 services? Do [...] ss Type Group BCBS BCBS OUT OF [id number] 2016-Present [phone] [address] [address] [place] [address] Megan Choi Medication Self 1965 [address] [place] ([place]) [place] [address] Care Teams Validation Consultant Relationship Specialty Start Date End Date Noreen Hills APRN INVESTIGATOR INTERNAL AFFAIRS Assigned PCP 06/16/18 [address] [facility] [place] [address]
--- OUTSIDE RECORDS SUMMARY | 2022-01-17 22:27 | XMS_ITS | Encounter Summary ---
:1965 Author Organization [facility] Address [address] [place] [address] Care Team Providers Name Role Phone Unassigned, Provider Primary Care Provider Unavailable Encounter Details Date Type Department Care Team Description 03/28/2001 Orders Only Blank Burleson APRN, [place] [address] [place], [place] [address] [place] [address] (Wo rk) Social History Tobacco Use Types Packs/Day Years Used Date Smoking Tobacco: Never Assessed Sex Assigned at Date Recorded Not on file documented as of this encounter Plan of Treatment Not on filedocumented as of this encounter Procedures Procedure Name Priority Date/Time Associated Diagnosis Comme nts PAP TEST, ROUTINE Routine 03/28/2001 9:30 AM Resu lts for this CDT procedure are i n the results section. documented in this encounter Results PAP SMEAR, ROUTINE (03/28/2001 9:30 AM CDT) [facility] Method Time Signature Pap Smear, See Separate Report [facility] Routine Performed at [facility] Specimen Anatomical Collection Method Collection Time Receive d Time (Source) Location / / Volume Laterality 03/28/2001 9:30 AM 11/14/200 1 CDT 12:22 PM SQUAD LEADER Blank Perez APRN, CNP LAB_1 Performing Organization Address City/State/ZIP Code Phon e Number [facility] [phone] [facility] [address] [address] documented in this encounter Visit Diagnoses Not on filedocumented in this encounter Care Teams Babbitt Spinner Relationship Specialty Start Date End Date Unassigned, Provider PCP - General 09/18/08 [address] [place] [address] documented as of this encounter
--- OUTSIDE RECORDS SUMMARY | 2022-01-17 22:27 | XMS_ITS | Encounter Summary ---
:1965 Author Organization [facility] Address [address] [place] [address] Care Team Providers Name Role Phone Noreen Hills APRN, CNP Unavailable [phone] Noreen Hills APRN, CNP Primary Care Provider [phone] Kalyan Galvan Unavailable Unavailable Eduardo Sharma MD Unavailable Marcelo Artis PA-C Unavailable [phone] Reason for Visit Reason Comments Medication Refill Encounter Details Date Type Department Care Team Description 01/06/2021 Refill [facility] Noreen Hills, Medication Refill Pino ESTRADA WEALTH MANAGEMENT CONSULTANT [address] [facility] [address] [place] [address] [address] [place] [address] [place] [address] [phone] Social History Tobacco Use Types Packs/Day Years [...] How often do you attend latter-day or confucianism Patient refused 08/08/2019 services? Do you belong to any clubs or organizations such as No 08/08/2019 latter-day groups, unions, fraternal or athletic groups, or [...] documented as of this encounter Care Teams Napkin Machine Operator Relationship Specialty Start Date End Date Noreen Hills PCP - General Nurse Practitioner 01/09/19 12/12/21 SEAN Haley WEALTH MANAGEMENT CONSULTANT [address] [facility] [place] [address] Noreen Hills Assigned PCP 06/16/18 SEAN Haley WEALTH MANAGEMENT CONSULTANT [address] [facility] [place] [address] Kalyan Galvan Personal Advocate & 08/08/19 Liaison (PAL) Eduardo Sharma MD Assigned Sleep Provider 04/02/20 05/07/21 [address] [facility] [address] [place], [place] [address] Marcelo Artis Assigned Musculoskeletal 08/25/20 08/20/21 MIKAYLA Nuno Provider [address] [facility] [address] [place], [place] [address] documented as of this encounter
--- OUTSIDE RECORDS SUMMARY | 2022-01-17 22:27 | XMS_ITS | Encounter Summary ---
:1965 Author Organization [facility] Address [address], [place] [address] Care Team Providers Name Role Phone Juanito Panda MD Primary Care Provider Unavailable Reason for Visit Reason Comments PRE-OP EXAM VIA INTERFACE Encounter Details Date Type Department Care Team Description 09/11/2000 Office Visit [facility] II Juanito Panda, DISC DIS NEC/NOS-UNSPEC; [address] [facility] [address] DYSPEPSIA; [place] [address] PREOP EXA M OTHER SPECIFIED; FOLLOW-UP EXAM NOS Social History Tobacco Use Types Packs/Day Years Used Date Smoking Tobacco: Never Assessed Sex Assigned at Date Recorded Not on file documented as of this encounter Progress Notes Juanito Panda - 09/11/2000 12:00 AM CDTS: This 35 -year-old female had recently been referred to Dr. Brandt for problems related to her cervical herniated disks. Please refer to 08/10/00 visit. Patient has had a prior MRI scan in May showing herniations at C5-6 and C6-7. She has had persistent symptoms for a long time, perhaps even years. She notes persistent discomfort in the right upper extremity. Past medical history is significant for a prior section and a tonsillectomy. She currently takes Aciphex and occasionally uses ibuprofen on a prn basis. She is allergic to erythromycin. Patient is not a smoker and uses alcohol occasionally. Review of systems is contained on adult preop questionnaire. There was a positive response for chest pain, but that occurred in 1988 and she has had no symptoms since then. It was felt to be muscular in origin. The patient gets dyspnea walking uphill related to her weight. It is quickly relieved with rest. She responded that she had taken aspirin, but it was really ibuprofen she had used within a week's time. O: BP: 130/72. P: 60. R: 16. T: 97.6. WT: 204 pounds. She is an obese woman in no distress. She continues to have some limitation of range of motion of neck similar to that described on August 10. Pupils are equally reactive, fundi benign, ears negative, pharynx normal. Neck: No adenopathy or thyroid enlargement. Chest clear. Heart tones normal with regular rate and rhythm. Abdomen soft and nontender with no masses. Lower extremities no edema. Reflexes are brisk and symmetric in upper and lower extremities. Postal Clerk strength is full and equal. Remainder of neurologic exam is normal. Hemoglobin 14.5, white blood count 10,400, platelets 258,000, electrocardiogram shows normal sinus rhythm at a rate of 74 beats per minute. A: 1. Cervical herniated disk. 2. Obesity. 3. History of dyspepsia. P: There is no history of bleeding or anesthesia difficulties with past surgeries. She appears to be healthy for planned procedure. cc: IN SUMMARY: Cervical herniated disk. Obesity. History of dyspepsia. documented in this encounter Plan of Treatment Not on filedocumented as of this encounter Visit Diagnoses Diagnosis Other and unspecified disc disorder of u nspecified region (HRC) Other and unspecified disc disorder of u nspecified region Obesity, unspecified (HRC) Obesity, unspecified Dyspepsia and other specified disorders of function of stomach Other specified pre-operative examinatio n Unspecified follow-up examination documented in this encounter Care Teams Wholesale Parts Salesperson Relationship Specialty Start Date End Date Juanito Panda MD PCP - General 07/30/00 1 documented as of this encounter
--- OUTSIDE RECORDS SUMMARY | 2022-01-17 22:27 | XMS_ITS | Encounter Summary ---
:1965 Author Organization [facility] Address [address], [place] [address] Care Team Providers Name Role Phone Greyson Gonzalez MD Primary Care Provider Encounter Details Date Type Department Care Team Description 04/19/2001 Office Visit [facility] Obstetrics and Blank Perez, GENERAL ENGINEER , COUNSELING, HEALTH Gynecology [facility] [address] [facility] [address] [place] [address] [place], [place] [phone] (Wo rk) Social History Tobacco Use Types Packs/Day Years Used Date Smoking Tobacco: Never Assessed Sex Assigned at Date Recorded Not on file documented as of this encounter Progress Notes Blank Perez - 04/19/2001 12:00 AM CSTS: 36-year-old female comes in today for test results. She had labs done secondary to increased hair growth involving her chin. She has noticed specifically over the last four to six months that she has had to shave daily. She has been off and on control pills since age 16. She has used Lo/Ovral. She ended up discontinuing it secondary to silent menses on oral contraceptive pills. They resumed after a time when she had stopped them. She also notices hair growth on the lower abdomen. Her routine health maintenance exam was done March 28. She is trying to watch her diet and struggling with her weight. She is on Aciphex and a multivitamin. O: Lab work revealed borderline cholesterol, normal hemoglobin, normal DHEA, sulfate and testosterone and TSH. Her weight today is listed as 194 1/2. On March 18, it was 145, so one does not appear accurate. P: We will schedule a uterine ultrasound to rule out PCO. We will check insulin level as well as random blood sugar. We will check FSH, LH and check ratio. We discussed treatment, including low androgen oral contraceptive pills. We will start her on Brevicon. We also discussed Spironolactone and Vanicream. She is not interested in the Vanicream. She will follow up after test results. IN SUMMARY: FOLLOW UP LAB cc: R MACHINE BACKTENDER documented in this encounter Plan of Treatment Not on filedocumented as of this encounter Visit Diagnoses Diagnosis Counseling NOS(V65.40) Counseling NOS documented in this encounter Care Teams Real Estate Operations Manager Relationship Specialty Start Date End Date Greyson Gonzalez MD PCP - General 04/15/01 12/23/03 [address] [place] [address] documented as of this encounter
--- OUTSIDE RECORDS SUMMARY | 2022-01-17 22:27 | XMS_ITS | Encounter Summary ---
:1965 Author Organization [facility] Address [address] [place] [address] Care Team Providers Name Role Phone Noreen Hills APRN, CNP Unavailable [phone] Noreen Hills APRN, CNP Primary Care Provider [phone] Kalyan Galvan Unavailable Unavailable Eduardo Sharma MD Unavailable Marcelo Artis PA-C Unavailable [phone] Reason for Visit Reason Comments Medication Refill Encounter Details Date Type Department Care Team Description 01/11/2021 Refill [facility] Noreen Hills, Medication Refill Pino ESTRADA PROGRAM SUPERVISOR [address] [facility] [address] [place] [address] [address] [place] [address] [place] [address] [phone] Social History Tobacco Use Types Packs/Day Years [...] How often do you attend mu-ism or worship Patient refused 08/08/2019 services? Do [...] encounter Miscellaneous Notes Telephone Encounter - Geo Whipple RN - 01/12/2021 2:56 PM CDT Duplicate. Last filled 90 tablet 11 01/07/2021 Geo Girard RN Telephone Encounter - Noreen Hills APRN CNP - 01/12/2021 1:11 PM CDT I just ordered this 5 days ago. Please investigate, and close encounter if not needed. Telephone Encounter - Radha Manning RN - 01/11/2021 3:06 PM CDT Routing refill request to provider for review/approval because: Drug not on the [facility] refill protocol Radha Manning RN [facility] -- Triage Nurse documented in this encounter Plan of Treatment Not on filedocumented as of this encounter Visit Diagnoses Diagnosis Chronic seasonal allergic rhinitis documented in this encounter Additional Health Concerns Assessment Noted Time PHQ-9 Depression Total Score: 7 11/10/2020 1:31 PM CDT documented as of this encounter Care Teams Assembler Installer Structures Relationship Specialty Start Date End Date Noreen Hills PCP - General Nurse Practitioner 01/09/19 12/12/21 SEAN Haley PROGRAM SUPERVISOR [address] [facility] [place] [address] Noreen Hills Assigned PCP 06/16/18 SEAN Haley PROGRAM SUPERVISOR [address] [facility] [place] [address] Kalyan Galvan Personal Advocate & 08/08/19 Liaison (PAL) Eduardo Sharma MD Assigned Sleep Provider 04/02/20 05/07/21 [address] [address] Marcelo Artis Assigned Musculoskeletal 08/25/20 08/20/21 MIKAYLA Nuno Provider [address] [address] documented as of this encounter
--- OUTSIDE RECORDS SUMMARY | 2022-01-17 22:27 | XMS_ITS | Encounter Summary ---
:1965 Author Organization [facility] Address [address] [place] [address] Care Team Providers Name Role Phone Juanito Panda MD Primary Care Provider Unavailable Encounter Details Date Type Department Care Team Description 03/28/2001 Office Visit [facility] Obstetrics Blank Perez, GYNECOLO GIC EXAMINATION; and Gynecology ROASTER SUPERVISOR, FORK TRUCK DRIVER SCREENING MAL NEOP-CERVIX [address] [facility] [address] [place] [address] [place], [place] [phone] Social History Tobacco Use Types Packs/Day Years Used Date Smoking Tobacco: Never Assessed Sex Assigned at Date Recorded Not on file documented as of this encounter Progress Notes Blank Perez - 03/28/2001 12:00 AM CDTSUBJECTIVE: 36 year-old female comes in today for RHM. She is new to [facility]. She had a laminectomy in September involving C6 and C7. She has also had one section in 1987. Her children are 18, 17 and 13 and all healthy. Her one daughter is at college. Her father has HTN and diabetes and two GA's. He has had two open heart surgeries, the first one beginning in his 40's. He has history of ETOH abuse and was a smoker. Mother has HTN, diabetes and arthritis. She has two sisters, one with diabetes and HTN, one with depression, one brother with diabetes. Patient has had a slow weight gain. She would like to decrease it. She is on Aciphex and a multivitamin. She has had a tubal ligation. OBJECTIVE: Height is 5'3. Her weight is 145 pounds. Blood pressure 114/84. Thyroid is without mass. Her breasts are soft without discrete mass, without dimpling, retracting or nipple discharge. Abdomen is soft and nontender. External genitalia, vagina and cervix within normal limits. Bimanual exam is negative. Surgical scar noted on her neck. It is closed and reddened and flat. PLAN: Pap was taken with Cytobrush and spatula. We did discuss low fat diet. Was told that her cholesterol was elevated in the past and to watch it and she does not have a good knowledge base regarding low fat, low cholesterol diet. We did review a good diet and discussed cholesterol classes. Encouraged even a small weight loss to decrease risk of diabetes and HTN. May obtain the program through [employer] on prevention of diabetes. Patient will return in one year or prn. IN SUMMARY: RHM. cc: documented in this encounter Plan of Treatment Not on filedocumented as of this encounter Visit Diagnoses Diagnosis Gynecological examination Screening for malignant neoplasm of the cervix documented in this encounter Care Teams Sand Sifter Relationship Specialty Start Date End Date Juanito Panda MD PCP - General 07/30/000 1 documented as of this encounter
--- OUTSIDE RECORDS SUMMARY | 2022-01-17 22:27 | XMS_ITS | Encounter Summary ---
:1965 Author Organization [facility] Address [address] [address] Care Team Providers Name Role Phone Juanito Panda MD Primary Care Provider Unavailable Encounter Details Date Type Department Care Team Description 03/18/2001 Office Visit [facility] Internal Med Greyson Romero MD BACKACHE NOS; [address] [place] [address] [place], [place] [id number] (Wo rk) Social History Tobacco Use Types Packs/Day Years Used Date Smoking Tobacco: Never Assessed Sex Assigned at Date Recorded Not on file documented as of this encounter Progress Notes Greyson Gonzalez - 03/18/2001 12:00 AM CDTS: The patient reports that she has a history of occasional mild low back pain. She also reports that in September 2000 she had cervical spinal fusion at C6-C7. The patient reports that on 03/09/2001, while helping her son carry a heavy box with some shelving, she had a twinge in her low back. Discomfort has worsened. The patient currently has constant mild discomfort across the low back that intensifies with positional changes. Associated with this she has had intermittent, but frequent pain down the left lower extremity, noting that in the thigh it is posterior and below the knee it is anterior. There is no lower extremity weakness or numbness or loss of control of bowel or bladder associated with this. O: Blood pressure 120/74, pulse 72. Patient has obvious discomfort, but is in no acute distress. The patient could flex her back to about 30 degrees. Low back was subjectively tender to palpation. Straight leg lift was positive on the left. Lower extremity strength and soft touch sensation was grossly intact, and deep tendon reflexes were symmetrically present at the patella. ASSESSMENT AND PLAN Low back pain and left lower extremity radicular symptoms. The patient is to try relative rest, noting a work slip was provided. She was given a book on Care of the Back and a book on Managing Back Pain. She is to try ice and/or warm packs as discussed. She is going to discontinue iyqr-cqz-muilrqs ibuprofen and use Naprosyn 500 milligrams po bid (of note, the patient is on Aciphex, but tells me this is due to heartburn and that she's never had ulcers). She is given Flexeril to be used as directed, having been advised of the sedating effects of the medication. For extreme pain she is given Percocet to be used as directed, also having been advised of the sedating effects of the medication. She is to return if this does not correct the problem, immediately if symptoms should progress or change in any way. IN SUMMARY: Low back pain and left lower extremity radicular symptoms cc: documented in this encounter Plan of Treatment Not on filedocumented as of this encounter Visit Diagnoses Diagnosis Backache, unspecified Pain in limb documented in this encounter Care Teams Bridge Repairer Relationship Specialty Start Date End Date Juanito Panda MD PCP - General 07/30/00 1 documented as of this encounter
--- OUTSIDE RECORDS SUMMARY | 2022-01-17 22:27 | XMS_ITS | Encounter Summary ---
:1965 Author Organization [facility] Address [address] [place] [address] Care Team Providers Name Role Phone Noreen Hills APRN COMPUTER TECHNICAL SPECIALIST Unavailable [phone] Noreen Hills APRN, CNP Primary Care Provider [phone] Kalyan Galvan Unavailable Unavailable Lashae Trevino [facility] Unavailable [phone] Eduardo Sharma MD Unavailable Marcelo Artis PA-C Unavailable [phone] Rodrigo Man PA-C Unavailable [phone] Encounter Details Date Type Department Care Team Description 11/12/[address] [facility] Noreen Hills Eagan APRN COMPUTER TECHNICAL SPECIALIST [address] [facility] [address] [place] [address] [address] [place] [address] [place] [address] [phone] Social History Tobacco Use Types Packs/Day Years [...] How often do you attend congregational or samaritan Patient refused 08/08/2019 services? Do you belong to any clubs or organizations such as No 08/08/2019 congregational groups, [employer]ss, [employer] or athletic groups, or school groups? [...] Faria, RN - Patient Advocate Liason (PAL) [facility] Telephone Encounter - Angel Faria [...] documented as of this encounter Care Teams Customer Marketing Manager Relationship Specialty Start Date End Date Noreen Hills PCP - General Nurse Practitioner 01/09/19 12/12/21 SEAN Haley COMPUTER TECHNICAL SPECIALIST [address] [facility] [place] [address] Noreen Hills Assigned PCP 06/16/18 SEAN Haley COMPUTER TECHNICAL SPECIALIST [address] [facility] [place] [address] Kalyan Galvan Personal Advocate & 08/08/19 Liaison (PAL) Lashae Trevino Pharmacist Pharmacist 10/14/19 12/01/20 [facility] [address] [id number] Eduardo Sharma MD Assigned Sleep Provider 04/02/20 05/07/21 [address] [place] [address] Marcelo rAtis Assigned Musculoskeletal 08/25/20 08/20/21 MIKAYLA Nuno Provider [address] [facility] [address] [place] [address] Rodrigo Man Assigned Surgical 08/25/2011/27 MIKAYLA Lacy Provider [address] [place] [address] documented as of this encounter
--- OUTSIDE RECORDS SUMMARY | 2022-01-17 22:27 | XMS_ITS | Encounter Summary ---
:1965 Author Organization [facility] Address [address] [place] [address] Care Team Providers Name Role Phone Noreen Hills APRN, CNP Unavailable [phone] Noreen Hills APRN, CNP Primary Care Provider [phone] Kalyan Galvan Unavailable Unavailable Eduardo Sharma MD Unavailable Marcelo Artis PA-C Unavailable [phone] Reason for Visit Reason Onset Date Comments Panel Management 12/02/2020 Encounter Details Date Type Department Care Team Description 12/02/2020 Documentation Only [facility] Lashae Trevino Panel Management [facility] [address] [place] [address] [address] [place] [address] (Work) [phone] Social History Tobacco Use Types Packs/Day Years [...] How often do you attend zoroastrianism or jain Patient refused 08/08/2019 services? Do you belong to any clubs or organizations such as No 08/08/2019 zoroastrianism groups, unions, fraternal or athletic groups, or [...] as of this encounter Progress Notes Lashae Trevino [facility] - 12/02/2020 3:44 PM CDT Have not been able to connect with patient. No further attempts will be made at this time. I would be happy to assist in the care of this patient in the future if needed. Lashae Trevino, PharmD Medication Therapy Management Pharmacist documented in this encounter Plan of Treatment Not on filedocumented as of this encounter Visit Diagnoses Not on filedocumented in this encounter Additional Health Concerns Assessment Noted Time PHQ-9 Depression Total Score: 7 11/10/2020 1:31 PM CDT documented as of this encounter Care Teams Full Stack Web Developer Relationship Specialty Start Date End Date Noreen Hills PCP - General Nurse Practitioner 01/09/19 12/12/21 SEAN Haley CONFERENCE SERVICES MANAGER [address] [facility] [place] [address] Noreen Hills Assigned PCP 06/16/18 SEAN Haley CONFERENCE SERVICES MANAGER [address] [facility] [place] [address] Kalyan Galvan Personal Advocate & 08/08/19 Liaison (PAL) Eduardo Sharma MD Assigned Sleep Provider 04/02/20 05/07/21 [address] [place], [place] [address] Marcelo Artis Assigned Musculoskeletal 08/25/20 08/20/21 MIKAYLA Nuno Provider [address] [facility] [address] [place] [address] documented as of this encounter
--- OUTSIDE RECORDS SUMMARY | 2022-01-17 22:27 | XMS_ITS | Encounter Summary ---
:1965 Author Organization [facility] Address [address] [place] [address] Care Team Providers Name Role Phone Noreen Hills APRN CIGARETTE ROLLER Unavailable [phone] Noreen Hills APRN CIGARETTE ROLLER Primary Care Provider [phone] Reason for Visit Reason Comments Medication Refill Encounter Details Date Type Department Care Team Description 12/08/2021 Refill [facility] Noreen Hills, Medication Refill Pino ESTRADA CIGARETTE ROLLER [address] [facility] [address] [place] [address] [address] [place] [address] [place] [address] [phone] Social History Tobacco Use Types Packs/Day Years [...] How often do you attend mandaen or moravian Patient refused 08/08/2019 services? Do [...] and she goes to the clinic in [place]. Please remove the pended med.Thank you. Lainey [...] as of this encounter Care Teams Wet Sander Relationship Specialty Start Date End Date Noreen Hills APRN CIGARETTE ROLLER PCP - General Nurse Practitioner 01/09/19 12/12/[address] [place] [address] [place] [address] Noreen Hills APRN CIGARETTE ROLLER Assigned PCP 06/16/[address] [place] [address] [place] [address] documented as of this encounter
--- OUTSIDE RECORDS SUMMARY | 2022-01-17 22:27 | XMS_ITS | Encounter Summary ---
:1965 Author Organization [facility] Address [address], [place] [address] Care Team Providers Name Role Phone Greyson Gonzalez MD Primary Care Provider Encounter Details Date Type Department Care Team Description 05/01/[address] [facility] Obstetrics and Anayeli Perez, REEL SLITTER, CALL OUT OPERATOR Gynecology [address] [place] [address] [place] [address] [phone] Social History Tobacco Use Types Packs/Day Years Used Date Smoking Tobacco: Never Assessed Sex Assigned at Date Recorded Not on file documented as of this encounter Procedure Notes Alfredo Mcmahon - 05/01/2001 12:00 AM CSTAssociated Order(s): ECHO EXAMINATION PROCEDURE TAPE NO: [id number] REFERRING PHYSICIAN: This patient was sent to us by AUDREY Moffett. CLINICAL INFORMATION: This patient was sent to us by AUDREY Moffett, because of unwanted hair growth. Ultrasound examination of the pelvis was done utilizing abdominal and vaginal transducers. The uterus appeared to be normal size with normal endometrial cavity. The uterus measured 9.8 x 3.7 centimeters longitudinally and 5.2 x 3.7 centimeters in transverse diameter. The endometrial cavity had normal appearance and measured 5. 4 millimeters. We were not able to see and outline the right ovary, but the left ovary looked normal. It measured 2.6 x 1.3 centimeters in longitudinal and 2.3 x 1.6 centimeters in transverse diameter. There are 4 or 5 peripheral follicles and this could be considered polycystic ovary, but he ovary is not enlarged. There is no free fluid in the cul-de-sac. IMPRESSION: In summary, this patient has essentially normal pelvic ultrasound examination. We could not see the right ovary. Left ovary looked normal with few peripheral follicles. IN SUMMARY: ESSENTIALLY NORMAL PELVIC ULTRASOUND cc: AUDREY Moffett R RESOURCES TECHNICAL OFFICER documented in this encounter Plan of Treatment Not on filedocumented as of this encounter Procedures Procedure Name Priority Date/Time Associated Diagnosis Comme nts UNLISTED ULTRASOUND 05/01/2001 Results for this PROCEDURE procedure are i n the results section . documented in this encounter Results ECHO EXAMINATION PROCEDURE (05/01/2001) Anatomical Region Laterality Modality Other Transcriptions Alfredo Mcmahon - 05/01/2001 12:00 AM WATER RESOURCES TECHNICAL OFFICER TAPE NO: [id number] REFERRING PHYSICIAN: This patient was se nt to us by AUDREY Moffett. CLINICAL INFORMATION: This patient was s ent to us by AUDREY Moffett, because of unwanted hair growth. Ultrasound examination of the pelvis was done utilizing abdominal and vaginal transducers. The uterus appeared to be normal size with normal endometrial cavity. The uterus measured 9.8 x 3.7 centimeters longitudinally and 5.2 x 3.7 centimeters in transverse diameter. The endometrial cavity had normal appearance and measured 5. 4 millimeters. We were not able to see and outline the rig ht ovary, but the left ovary looked normal. It measured 2.6 x 1.3 centimeter s in longitudinal and 2.3 x 1.6 centimeters in transverse diameter. Ther e are 4 or 5 peripheral follicles and this could be considered polycystic ovary, but he ovary is not enlarged. There is no free fluid in the cul-de-sac. IMPRESSION: In summary, this patient has essentially normal pelvic ultrasound examination. We could not see the right ovary. Left ovary looked normal with few peripheral follic les. IN SUMMARY: ESSENTIALLY NORMAL PELVIC UL TRASOUND cc: AUDREY Moffett Blank Perez REEL SLITTER, CALL OUT OPERATOR PROC_2 documented in this encounter Visit Diagnoses Not on filedocumented in this encounter Care Teams Supervisor Alteration Workroom Relationship Specialty Start Date End Date Greyson Gonzalez MD PCP - General 04/15/01 12/23/03 [address] [place] [address] documented as of this encounter
--- OUTSIDE RECORDS SUMMARY | 2022-01-17 22:27 | XMS_ITS | Encounter Summary ---
:1965 Author Organization [facility] Address [address] [place] [address] Care Team Providers Name Role Phone Unassigned, Provider Primary Care Provider Unavailable Encounter Details Date Type Department Care Team Description 09/11/2000 Orders Only Juanito Young MD [address] [place], [place] [phone] Social History Tobacco Use Types Packs/Day Years Used Date Smoking Tobacco: Never Assessed Sex Assigned at Date Recorded Not on file documented as of this encounter Plan of Treatment Pending Results Name Type Priority Associated Diagnoses Date/Ti me HEMOGRAM/PLTS/DIFF Lab Waiting 1 4:50 PM CDT (WAITING) documented as of this encounter Procedures Procedure Name Priority Date/Time Associated Diagnosis Comme nts HEMOGRAM/PLTS/DIFF Waiting 09/11/2000 4:50 PM (WAITING) CDT ECG TRACING Routine 09/11/2000 4:50 PM Results f or this CDT procedure are i n the results section. documented in this encounter Results EKG TRACING (09/11/2000 4:50 PM CDT) [facility] Method Time Signature EKG See Separate [facility] Report Specimen Anatomical Collection Method Collection Time Receive d Time (Source) Location / / Volume Laterality 09/11/2000 4:50 PM 1 4:53 CDT PM CDT Juanito Pnada MD EKG Performing Organization Address City/State/ZIP Code Phon e Number [facility] [phone] [facility] [address] [address] documented in this encounter Visit Diagnoses Not on filedocumented in this encounter Care Teams Home Economist Consumer Service Relationship Specialty Start Date End Date Unassigned, Provider PCP - General 09/18/08 [address] [place] [address] documented as of this encounter
--- OUTSIDE RECORDS SUMMARY | 2022-01-17 22:28 | XMS_ITS | Encounter Summary ---
:1965 Author Organization [facility] Address [address] [place] [address] Care Team Providers Name Role Phone Noreen Hills APRN CONSTRUCTION REPRESENTATIVE Unavailable [phone] Noreen Hills APRN CONSTRUCTION REPRESENTATIVE Primary Care Provider [phone] Kalyan Galvan Unavailable Unavailable Lashae Trevino [facility] Unavailable [phone] Eduardo Sharma MD Unavailable Rios Monteiro [...] How often do you attend protestant or oriental orthodox Patient refused 08/08/2019 services? [...] with No / Unsure 07/17/2020 1:32 PM INSPECTOR PACKAGER someone who was confirmed or suspected to have Coronavirus / COVID-19? documented as of this encounter Plan of Treatment Not on filedocumented as of this encounter Visit Diagnoses Not on filedocumented in this encounter Additional Health Concerns Assessment Noted Time PHQ-9 Depression Total Score: 5 03/16/2020 7:09 AM CDT documented as of this encounter Care Teams Aids Counselor Relationship Specialty Start Date End Date Noreen Hills PCP - General Nurse Practitioner 01/09/19 12/12/21 SEAN Haley CONSTRUCTION REPRESENTATIVE [address] [place] [address] Noreen Hills Assigned PCP 06/16/18 SEAN Haley CONSTRUCTION REPRESENTATIVE [address] [place] [address] Kalyan Galvan Personal Advocate & 08/08/19 Liaison (PAL) Lashae Trevino Pharmacist Pharmacist 10/14/19 12/01/[facility] [address] [facility] [facility] [address] [place], [place] [id number] Eduardo Sharma MD Assigned Sleep Provider 04/02/20 05/07/[address] [facility] [address] [place] [id number] Rios Monteiro MD Assigned Musculoskeletal 04/02/20 08/24/20 [address] [facility] Provider [address] [place], [place] [address] documented as of this encounter
--- OUTSIDE RECORDS SUMMARY | 2022-01-17 22:28 | XMS_ITS | Encounter Summary ---
:1965 Author Organization [facility] Address [address] [place] [address] Care Team Providers Name Role Phone Noreen Hills APRN, CNP Unavailable [phone] Noreen Hills APRN, CNP Primary Care Provider [phone] Kalyan Galvan Unavailable Unavailable Lashae Trevino [facility] Unavailable [phone] Eduardo Sharma MD Unavailable Marcelo Artis PA-C Unavailable [phone] Rodrigo Man PA-C Unavailable [phone] Reason for Visit Reason Onset Date Comments Refill Request 10/05/2020 topiramate (TOPAMAX) 100 MG tablet Encounter Details Date Type Department Care Team Description 10/05/2020 Refill [facility] Noreen Hills Refill [facility] Pino Haley APRN CNP (topiramate (TOPAMAX) [address] [place] [address] [facility] 100 M G tablet) [facility] [address] [place] [address] [place] [address] [phone] Social History Tobacco Use Types Packs/Day Years [...] How often do you attend jain or congregation Patient refused 08/08/2019 services? Do you belong to any clubs or organizations such as No 08/08/2019 jain groups, Zu[employer], fraXiaomi or athletic groups, or school groups? How [...] documented as of this encounter Care Teams Carpenter'S Helper Relationship Specialty Start Date End Date Noreen Hills PCP - General Nurse Practitioner 01/09/19 12/12/21 SEAN Haley PHYSICAL MEDICINE TEACHER [address] [facility] [place] [phone] Noreen Hills Assigned PCP 06/16/18 SEAN Haley PHYSICAL MEDICINE TEACHER [address] [facility] [place] [address] Kalyan Galvan Personal Advocate & 08/08/19 Liaison (PAL) Lashae Trevino Pharmacist Pharmacist 10/14/19 12/01/20 Kiran, [facility] [address] [employer] [place] [phone] Eduardo Sharma MD Assigned Sleep Provider 04/02/20 05/07/21 [address] [place] [address] Marcelo Artis Assigned Musculoskeletal 08/25/20 08/20/21 MIKAYLA Nuno Provider [address] [facility] [address] [place] [address] Rodrigo Man Assigned Surgical 08/25/2011/27 MIKAYLA Lacy Provider [address] [facility] [address] [place], [place] [address] documented as of this encounter
--- OUTSIDE RECORDS SUMMARY | 2022-01-17 22:28 | XMS_ITS | Encounter Summary ---
:1965 Author Organization [facility] Address [address] [place] [address] Care Team Providers Name Role Phone Noreen Hills APRN BRAND MGR Unavailable [phone] Noreen Hills APRN BRAND MGR Primary Care Provider [phone] Kalyan Galvan Unavailable Unavailable Lashae Trevino [facility] Unavailable [phone] Eduardo Sharma MD Unavailable Rios Monteiro MD Unavailable Reason for Visit Reason Comments Medication Refill Encounter Details Date Type Department Care Team Description 07/31/2020 Refill [facility] Noreen Hills, Medication Refill Pino ESTRADA BRAND MGR [address] [place] [address] [place] [address] [phone] Social History Tobacco Use Types Packs/Day Years [...] How often do you attend sikhism or advent Patient refused 08/08/2019 services? Do you belong to any clubs or organizations such as No 08/08/2019 sikhism groups, [employer]s, fraBBK Worldwide or athletic groups, or school groups? How [...] with No / Unsure 07/17/2020 1:32 PM FIELD TRAINING MANAGER someone who was confirmed or suspected to have Coronavirus / COVID-19? documented as of this encounter Miscellaneous Notes Telephone Encounter - Russell Lainey - 08/02/2020 12:52 PM CST See message to pt. Lainey Russell on 08/02/2020 at 12:52 PM D TRAINING MANAGER Telephone Encounter - Wilda Aponte RN - 08/02/2020 12:15 PM CST Prescription approved per [facility] Refill Protocol. Medication is being filled for 1 time refill only due to: Patient needs to be seen because visit dueApril, please assist in scheduling. Routed to Wilda Aponte RN, BSN Message handled by CLINIC NURSE. D TRAINING MANAGER documented in this encounter Plan of Treatment Not on filedocumented as of this encounter Visit Diagnoses Diagnosis Fibromyalgia Mylagia and myositis, unspecified documented in this encounter Additional Health Concerns Assessment Noted Time PHQ-9 Depression Total Score: 5 03/16/2020 7:09 AM CDT documented as of this encounter Care Teams Reservation Clerk Relationship Specialty Start Date End Date Noreen Hills PCP - General Nurse Practitioner 01/09/19 12/12/21 SEAN Haley BRAND MGR [address] [facility] [place] [address] Noreen Hills Assigned PCP 06/16/18 SEAN Haley BRAND MGR [address] [facility] [place] [phone] Kalyan Galvan Personal Advocate & 08/08/19 Liaison (PAL) Lashae Trevino Pharmacist Pharmacist 10/14/19 12/01/20 Kiran [facility] [address] [facility] [place] [phone] Eduardo Sharma MD Assigned Sleep Provider 04/02/20 05/07/21 [address] [place] [address] [place] [address] Rios Monteiro MD Assigned Musculoskeletal 04/02/20 08/24/20 [address] [facility] Provider [address] [address] documented as of this encounter
--- OUTSIDE RECORDS SUMMARY | 2022-01-17 22:28 | XMS_ITS | Encounter Summary ---
:1965 Author Organization [facility] Address [address] [place] [address]. [place] [address] Care Team Providers Name Role Phone Noreen Hills APRN HOT STRIP MILL INSPECTOR Unavailable [phone] Noreen Hills APRN HOT STRIP MILL INSPECTOR Primary Care Provider [phone] Kalyan Galvan Unavailable Unavailable Lashae Trevino [facility] Unavailable [phone] Eduardo Sharma MD Unavailable Marcelo Artis PA-C Unavailable [phone] Rodrigo Man PA-C Unavailable [phone] Encounter Details Date Type Department Care Team Description 09/24/2020 Immunization [facility] Ruperto Monk, Vaccination Center - [address] [address] [place], [place] [address] [phone] Social History Tobacco Use Types Packs/Day Years [...] How often do you attend mormon or sabianism Patient refused 08/08/2019 services? Do you belong to any clubs or organizations such as No 08/08/2019 mormon groups, [employer], fraAdmittor or athletic groups, or school groups? How [...] as of this encounter Care Teams Manager Investment Banking Relationship Specialty Start Date End Date Noreen Hills PCP - General Nurse Practitioner 01/09/19 12/12/21 SEAN Haley HOT STRIP MILL INSPECTOR [address] [facility] [place] [phone] Noreen Hills Assigned PCP 06/16/18 SEAN Haley HOT STRIP MILL INSPECTOR [address] [facility] [place] [phone] Kalyan Galvan Personal Advocate & 08/08/19 Liaison (PAL) Lashae Trevino Pharmacist Pharmacist 10/14/19 12/01/20 [facility] [address] [facility] [place] [phone] Eduardo Sharma MD Assigned Sleep Provider 04/02/20 05/07/21 [address] [place] [id number] Marcelo Artis Assigned Musculoskeletal 08/25/20 08/20/21 MIKAYLA Nuno Provider [address] [facility] [address] [place] [address] Rodrigo Man Assigned Surgical 08/25/2011/27 MIKAYLA Lacy Provider [address] [place] [id number] documented as of this encounter
--- OUTSIDE RECORDS SUMMARY | 2022-01-17 22:28 | XMS_ITS | Encounter Summary ---
:1965 Author Organization [facility] Address [address] [place] [address]. [place] [address] Care Team Providers Name Role Phone Noreen Hills APRN PRINT BUYER Unavailable [phone] Noreen Hills APRN PRINT BUYER Primary Care Provider [phone] Kalyan Galvan Unavailable Unavailable Lashae Trevino [facility] Unavailable [phone] Eduardo Sharma MD Unavailable Marcelo Artis PA-C Unavailable [phone] Rodrigo Man PA-C Unavailable [phone] Encounter Details Date Type Department Care Team Description 09/03/2020 [facility] [address] [place], [place] [address] Social History Tobacco Use [...] How often do you attend temple or yazdanism Patient refused 08/08/2019 services? Do [...] documented as of this encounter Care Teams Body Sander Relationship Specialty Start Date End Date Noreen Hills PCP - General Nurse Practitioner 01/09/19 12/12/21 SEAN Haley PRINT BUYER [address] [facility] [place] [address] Noreen Hills Assigned PCP 06/16/18 SEAN Haley PRINT BUYER [address] [facility] [place] [address] Kalyan Galvan Personal Advocate & 08/08/19 Liaison (PAL) Lashae Trevino Pharmacist Pharmacist 10/14/19 12/01/[facility] [address] [facility] [address] [place], [place] [phone] Eduardo Sharma MD Assigned Sleep Provider 04/02/20 05/07/21 [address] [place] [id number] Marcelo Artis Assigned Musculoskeletal 08/25/20 08/20/21 MIKAYLA Nuno Provider [address] [facility] [address] [place], [place] [address] Rodrigo Man Assigned Surgical 08/25/2011/27 MIKAYLA Lacy Provider [address] [place] [address] documented as of this encounter
--- OUTSIDE RECORDS SUMMARY | 2022-01-17 22:28 | XMS_ITS | Encounter Summary ---
:1965 Author Organization [facility] Address [address] [place] [address] Care Team Providers Name Role Phone Noreen Hills APRN DEGREASING SOLUTION MIXER Unavailable [phone] Noreen Hills APRN DEGREASING SOLUTION MIXER Primary Care Provider [phone] Kalyan Galvan Unavailable Unavailable Lashae Trevino [facility] Unavailable [phone] Eduardo Sharma MD Unavailable Marcelo Artis PA-C Unavailable [phone] Rodrigo Man PA-C Unavailable [phone] Encounter Details Date Type Department Care Team [...] How often do you attend moravian or spiritism Patient refused 08/08/2019 services? Do [...] documented as of this encounter Care Teams Lease Purchase Driver Relationship Specialty Start Date End Date Noreen Hills PCP - General Nurse Practitioner 01/09/19 12/12/21 SEAN Haley DEGREASING SOLUTION MIXER [address] [facility] [place] [address] Noreen Hills Assigned PCP 06/16/18 SEAN Haley DEGREASING SOLUTION MIXER [address] [facility] [place] [address] Kalyan Galvan Personal Advocate & 08/08/19 Liaison (PAL) Lashae Trevino Pharmacist Pharmacist 10/14/19 12/01/20 [facility] [address] [facility] [place] [phone] Eduardo Sharma MD Assigned Sleep Provider 04/02/20 05/07/21 [address] [place] [id number] Marcelo Artis Assigned Musculoskeletal 08/25/20 08/20/21 MIKAYLA Nuno Provider [address] [facility] [address] [place], [place] [address] Rodrigo Man Assigned Surgical 08/25/2011/27 MIKAYLA Lacy Provider [address] [place] [id number] documented as of this encounter
--- OUTSIDE RECORDS SUMMARY | 2022-01-17 22:28 | XMS_ITS | Encounter Summary ---
:1965 Author Organization [place] Address [address] [place] [address] Care Team Providers Name Role Phone Noreen Hills APRN FINGERPRINT TECHNICIAN Unavailable [phone] Noreen Hills APRN FINGERPRINT TECHNICIAN Primary Care Provider [phone] Kalyan Galvan Unavailable Unavailable Lashae Trevino [facility] Unavailable [phone] Eduardo Sharma MD Unavailable Marcelo Artis PA-C Unavailable [phone] Rodrigo Man PA-C Unavailable [phone] Reason for Visit Reason Comments Urgent Care Cough cough/sore throat Encounter Details Date Type Department Care Team Description 08/25/2020 Office Visit [facility] [place] nder investigation for COVID-19 (Primary Dx); Urgent [facility] [place] PA-C Sore throat; [address] [facility] [address] [place] [address] [place] [address] Social History Tobacco Use [...] such as No 08/08/2019 mormon groups, unions, fra[employer]-Marketing Corporation or athletic groups, or school groups? How [...] a bandana, T-shirt, or other cloth. The [facility] has instructions on how to make a [...] that contain caffeine or alcohol. ?? Taking liyj-hfl-lcstxpz (OTC) medicine to reduce pain and fever. [...] provider with permission from the publisher. ?? [phone] [place] [address], [place] [id number]. All rights reserved. This information is not [...] secretions in the nose and lungs. ?? Xkow-btz-ncbinhe cold medicines will not shorten the length of time you???re sick, but they may be helpful for the following symptoms: cough, sore throat, and nasal and sinus congestion. If you takeprescription medicines, ask your healthcare provider or pharmacist which bacg-wvs-bvfjuqr medicines are safe to use. (Note: Don't [...] it goes along with a muffled voice [employer] last reviewed this educational content on 11/09/2017 ?? 5818-[address] All rights reserved. This information is not [...] in??1/2 cup of warm water ?? An xvnd-yzs-fqdjouj anesthetic gargle Use medicine for more relief Xlvv-owl-fgayhrt medicine can reduce sore throat symptoms. Ask [...] dizzy or faint ?? Feeling of doom [employer] last reviewed this educational content on 02/09/2019 ?? 9567-[address] All rights reserved. This information is not [...] ??? fluticasone (FLONASE) 50 MCG/ACT nasal spray [place] 1-2 sprays into both nostrils daily 16 [...] the Simplexa COVID-19 Direct Assay on the Melode[employer] Liaison MDX instrument. Additional information about this [...] A PCR Not Detected NDET^Not Detected ASSESSMENT: (Z20.459) Person under investigation for COVID-19 (primary encounter [...] a bandana, T-shirt, or other cloth. The [facility] has instructions on how to make a [...] that contain caffeine or alcohol. ?? Taking ewnt-ofm-xbcctiw (OTC) medicine to reduce pain and fever. [...] provider with permission from the publisher. ?? [phone] [place], [place] [address] [place] [address]. All rights reserved. This information is not [...] secretions in the nose and lungs. ?? Lxhj-bac-lcziqay cold medicines will not shorten the length of time you???re sick, but they may be helpful for the following symptoms: cough, sore throat, and nasal and sinus congestion. If you takeprescription medicines, ask your healthcare provider or pharmacist which mgbu-fkx-pxptehp medicines are safe to use. (Note: Don't [...] it goes along with a muffled voice [employer] last reviewed this educational content on 11/09/2017 ?? 4327-[address] All rights reserved. This information is not [...] in??1/2 cup of warm water ?? An kzff-pjr-apysfqs anesthetic gargle Use medicine for more relief Nmqn-wwd-jkfokjl medicine can reduce sore throat symptoms. Ask [...] dizzy or faint ?? Feeling of doom [employer] last reviewed this educational content on 02/09/2019 ?? 2893-[address] All rights reserved. This information is not [...] (Coronavirus) by PCR (08/25/2020 7:31 PM CDT) [facility] Method Time Signature SARS-CoV-2 Nasopharyngeal 08/26/2020 INFECTIOUS Virus 3:23 PM CDT DISEASES Specimen DIAGNOSTIC Source LABORATORY, [facility] SARS-CoV-2 NEGATIVE 08/26/2020 INFECTIOUS PCR Result 3:23 PM CDT DISEASES DIAGNOSTIC LABORATORY, [facility] Comment: SARS-CoV2 (COVID-19) RNA not de tected, presumed negative. SARS-CoV-2 PCR Testing was performed using the Simplexa COVID-19 Direct Assay on the Melodeo Liaison MDX 08/26/2020 3:23 PM INFECTIOUS DISEASES Comment instrument. Additional info rmation about this Emergency Use Authorization (EUA) assay can CDT DIAGNOSTIC be found via the Lab Guide. L ABORATORY, [facility] Comment: This test should be ordered for [...] COVID-19. This test was validated by the [facility] Infectious Diseases Diagnostic Laboratory. This laboratory [...] Phon e Number INFECTIOUS DISEASES DIAGNOSTIC [address] [facility] [address] LABORATORY, [facility] Group A Streptococcus PCR Throat Swab (08/25/2020 7:31 PM CDT) [facility] Method Time Signature Specimen Throat 08/25/2020 [place] Description 7:48 PM CDT [facility] [place] Strep Group A Not Detected NDET^Not 08/26/2020 [place] O F PCR Detected 2:08 PM CDT [facility] Comment: Group A Streptococcus DNA is not detecte d. FDA approved assay performed using NextNine id GeneXpert real-time PCR. Specimen Anatomical Collection Method Collection Time Receive d Time (Source) Location / / Volume Laterality Specimen from 08/25/2020 7:31 PM 08/26/19 21 7:36 throat CDT PM CDT (specimen) Manuel Archer MD LAB - MICRO GENERAL ORDERABL ES Performing Organization Address City/State/ZIP Code Phon e Number [address] [address] [facility] [place] [address] [place] [address] Symptomatic COVID-19 Virus (Coronavirus) by PCR (08/25/2020 7:31 PM CDT) Component Value Ref Test Analysis Performed At [facility] Range Method Time Signature COVID-19 Nasopharyngeal 08/25/2020 [place] Virus PCR to 7:40 PM CDT [facility] [place] [facility] [place] - Source COVID-19 Test received-See 08/26/2020 INFECTIOUS Virus PCR to reflex to IDDL 1:00 PM CDT DISEASES [facility] [place] - test SARS CoV2 DIAGNOSTIC Result (COVID-19) Virus LABORATORY, RT-PCR [facility] Specimen (Source) Anatomical Collection Method Collection Time Re ceived Time Location / / Volume Laterality Specimen from 08/25/2020 7:31 08/25/2020 nasopharyngeal PM CDT 7:36 PM CDT structure (specimen) Manuel Archer MD LAB - MICRO GENERAL ORDERABL ES Performing Organization Address City/[facility]/ZIP Code Phon e Number INFECTIOUS DISEASES DIAGNOSTIC [address] [place] [address] LABORATORY, [address] [place] [address] [phone] Streptococcus A Rapid Scr w Reflx to PCR (08/25/2020 7:31 PM CDT) [facility] Method Time Signature Strep Specimen Throat 08/25/2020 [place] Description 7:34 PM CDT [facility] Streptococcus Negative NEG^Negat 08/25/2020 [place] Group A Rapid jaki 7:48 PM CDT [facility] Screen Comment: No Group A streptococcal antigen detecte d by immunoassay. Confirmatory testing in progress. Specimen Anatomical Collection Method Collection Time Receive d Time (Source) Location / / Volume Laterality Specimen from 08/25/2020 7:31 PM 08/26/19 21 7:36 throat CDT PM CDT (specimen) Manuel Archer MD LAB - MICRO GENERAL ORDERABL ES Performing Organization Address City/[facility]/ZIP Code Phon e Number [address] [address] [phone] documented in this encounter Visit Diagnoses Diagnosis Person under investigation for COVID-19 - Primary Sore throat Acute pharyngitis Cough documented in this encounter Additional Health Concerns Infection Onset Date Last Indicated Resolved Time Rule Out COVID-19 08/25/2020 08/25/2020 08/26/2020 3:2 3 PM CDT Assessment Noted Time PHQ-9 Depression Total Score: 5 03/16/2020 7:09 AM CDT documented as of this encounter Care Teams Body Painter Relationship Specialty Start Date End Date Noreen Hills PCP - General Nurse Practitioner 01/09/19 12/12/21 SEAN Haley FINGERPRINT TECHNICIAN [address] [facility] [place] [address] Noreen Hills Assigned PCP 06/16/18 SEAN Haley FINGERPRINT TECHNICIAN [address] [facility] [place] [address] Kalyan Galvan Personal Advocate & 08/08/19 Liaison (PAL) Lashae Trevino Pharmacist Pharmacist 10/14/19 12/01/20 [facility] [address] [facility] [place] [address] Eduardo Sharma MD Assigned Sleep Provider 04/02/20 05/07/21 [address] [place] [id number] Marcelo Artis Assigned Musculoskeletal 08/25/20 08/20/21 MIKAYLA Nuno Provider [address] [facility] [address] [place], [place] [address] Rodrigo Man Assigned Surgical 08/25/2011/27 MIKAYLA Lacy Provider [address] [place] [id number] documented as of this encounter
--- OUTSIDE RECORDS SUMMARY | 2022-01-17 22:28 | XMS_ITS | Encounter Summary ---
:1965 Author Organization [place] Address [address] [place] [address] Care Team Providers Name Role Phone Noreen Hills APRN TOWN JUSTICE Unavailable [phone] Noreen Hills APRN TOWN JUSTICE Primary Care Provider [phone] Kalyan Galvan Unavailable Unavailable Lashae Trevino [facility] Unavailable [phone] Eduardo Sharma MD Unavailable Marcelo Artis PA-C Unavailable [phone] Rodrigo Man PA-C Unavailable [phone] Encounter Details Date Type Department Care Team Description 08/25/2020 Travel Social History Tobacco Use Types Packs/Day [...] How often do you attend buddhist or scientology Patient refused 08/08/2019 services? Do [...] documented as of this encounter Care Teams Deep Submergence Vehicle Crewmember Relationship Specialty Start Date End Date Noreen Hills PCP - General Nurse Practitioner 01/09/19 12/12/21 SEAN Haley TOWN JUSTICE [address] [facility] [address] Noreen Hills Assigned PCP 06/16/18 SEAN Haley TOWN JUSTICE [address] [facility] [place] [address] Kalyan Galvan Personal Advocate & 08/08/19 Liaison (PAL) Lashae Trevino Pharmacist Pharmacist 10/14/19 12/01/20 [facility] [address] [facility] [address] [place], [place] [phone] Eduardo Sharma MD Assigned Sleep Provider 04/02/20 05/07/[address] [place] [address] Marcelo Artis Assigned Musculoskeletal 08/25/20 08/20/21 MIKAYLA Nuno Provider [address] [facility] [address] [place], [place] [address] Rodrigo Man Assigned Surgical 08/25/2011/27 MIKAYLA Lacy Provider [address] [place] [id number] documented as of this encounter
--- OUTSIDE RECORDS SUMMARY | 2022-01-17 22:28 | XMS_ITS | Encounter Summary ---
:1965 Author Organization [place] Address [address] [place] [address] Care Team Providers Name Role Phone Noreen Hills APRN, CNP Unavailable [phone] Noreen iHlls APRN, CNP Primary Care Provider [phone] Kalyan Galvan Unavailable Unavailable Lashae Trevino [facility] Unavailable [phone] Eduardo Sharma MD Unavailable Marcelo Artis PA-C Unavailable [phone] [place] Man PA-C Unavailable Reason for Visit Reason Onset Date Comments Refill Request 09/24/2020 zolpidem (AMBIEN) 5 MG tablet Encounter Details Date Type Department Care Team Description 09/24/2020 Refill [facility] Noreen Hills Refill Req uest (zolpidem Clinic [place] Haley APRN CNP (AMBIEN) 5 MG tablet) [address] [facility] [address] [place] [address] [place] [address] [phone] Social History Tobacco Use Types Packs/Day Years [...] often do you attend latter day or confucianist Patient refused 08/08/2019 services? Do you belong to any clubs or organizations such as No 08/08/2019 latter day groups, unions, fraAugmentWare or athletic groups, or school groups? How [...] documented as of this encounter Care Teams Seasoning Sprayer Relationship Specialty Start Date End Date Noreen Hills PCP - General Nurse Practitioner 01/09/19 12/12/21 SEAN Haley SCULPTURE CONSERVATOR [address] [facility] [place] [phone] Noreen Hills Assigned PCP 06/16/18 SEAN Haley SCULPTURE CONSERVATOR [address] [facility] [place] [phone] Kalyan Galvan Personal Advocate & 08/08/19 Liaison (PAL) Lashae Trevino Pharmacist Pharmacist 10/14/19 12/01/20 [facility] [address] [facility] [place] [phone] Eduardo Sharma MD Assigned Sleep Provider 04/02/20 05/07/21 [address] [place] [id number] Marcelo Artis Assigned Musculoskeletal 08/25/20 08/20/21 MIKAYLA Nuno Provider [address] [facility] [address] [place], [place] [address] Rodrigo Man Assigned Surgical 08/25/2011/27 MIKAYLA Lacy Provider [address] [place] [id number] documented as of this encounter
--- OUTSIDE RECORDS SUMMARY | 2022-01-17 22:28 | XMS_ITS | Encounter Summary ---
:1965 Author Organization [place] Address [address] [place] [address] Care Team Providers Name Role Phone Noreen Hills APRN ASSISTANT PROFESSOR OF RADIOLOGY Unavailable [phone] Noreen Hills APRN, CNP Primary Care Provider [phone] Kalyan Galvan Unavailable Unavailable Lashae Trevino [facility] Unavailable [phone] Eduardo Sharma MD Unavailable Marcelo Artis PA-C Unavailable [phone] [place] Man PA-C Unavailable [phone] Reason for Visit Reason Onset Date Comments Medication Request 10/20/2020 Encounter Details Date Type Department Care Team Description 10/20/2020 Telephone [facility] Noreen Hills ication Request [place] H[place] APRN ASSISTANT PROFESSOR OF RADIOLOGY [address] [place] [address] [facility] [address] [place] [address] [place] [phone] Social History Tobacco Use Types Packs/Day Years [...] How often do you attend nondenominational or orthodox Patient refused 08/08/2019 services? Do [...] her pharmacy about this. Tatiana Marshall APRN, ASSISTANT PROFESSOR OF RADIOLOGY Telephone Encounter - Lainey Wells - 10/20/2020 9:58 AM CDT The pt was calling and she was given some samples of OneTouch Verio Test Strips and Lancets and she would like an rx sent to the [facility] in [place]. Thank you. Lainey Russell on 10/20/2020 at 10:07 AM documented in this encounter Plan of Treatment Not on filedocumented as of this encounter Visit Diagnoses Not on filedocumented in this encounter Additional Health Concerns Assessment Noted Time PHQ-9 Depression Total Score: 5 03/16/2020 7:09 AM CDT documented as of this encounter Care Teams Registered Nurse Fetal Relationship Specialty Start Date End Date Noreen Hills PCP - General Nurse Practitioner 01/09/19 12/12/21 SEAN Haley ASSISTANT PROFESSOR OF RADIOLOGY [address] [facility] [place] [address] Noreen Hills Assigned PCP 06/16/18 SEAN Haley ASSISTANT PROFESSOR OF RADIOLOGY [address] [facility] [place] [address] Kalyan Galvan Personal Advocate & 08/08/19 Liaison (PAL) Lashae Trevino Pharmacist Pharmacist 10/14/19 12/01/20 [facility] [address] [facility] [place] [address] Eduardo Sharma MD Assigned Sleep Provider 04/02/20 05/07/21 [address] [place] [id number] Marcelo Artis Assigned Musculoskeletal 08/25/20 08/20/21 MIKAYLA Nuno Provider [address] [facility] [address] [place] [address] Rodrigo Man Assigned Surgical 08/25/2011/27 MIKAYLA Lacy Provider [address] [place] [id number] documented as of this encounter
--- OUTSIDE RECORDS SUMMARY | 2022-01-17 22:28 | XMS_ITS | Encounter Summary ---
:1965 Author Organization [place] Address [address] [place] [address] Care Team Providers Name Role Phone Noreen Hills APRN SUPERVISOR GROWER Unavailable [phone] Noreen Hills APRN SUPERVISOR GROWER Primary Care Provider [phone] Kalyan Galvan Unavailable Unavailable Lashae Trevino [facility] Unavailable [phone] Eduardo Sharma MD Unavailable Marcelo Artis PA-C Unavailable [phone] Rodrigo Man PA-C Unavailable [phone] Encounter Details Date Type Department Care Team Description 09/25/2020 Documentation Only INTERFACED REPORT Unknown, Provider Social [...] How often do you attend christianity or restoration Patient refused 08/08/2019 services? Do [...] documented as of this encounter Care Teams Outside Collector Relationship Specialty Start Date End Date Noreen Hills PCP - General Nurse Practitioner 01/09/19 12/12/21 SEAN Haley SUPERVISOR GROWER [address] [facility] [address] [place], [place] [address] Noreen Hills Assigned PCP 06/16/18 SEAN Haley SUPERVISOR GROWER [address] [facility] [address] [place], [place] [address] Kalyan Galvan Personal Advocate & 08/08/19 Liaison (PAL) Lashae Trevino Pharmacist Pharmacist 10/14/19 12/01/20 [facility] [address] [place] [address] Eduadro Sharma MD Assigned Sleep Provider 04/02/20 05/07/21 [address] [place] [id number] Marcelo Artis Assigned Musculoskeletal 08/25/20 08/20/21 MIKAYLA Nuno Provider [address] [facility] [address] [place] [address] Rodrigo Man Assigned Surgical 08/25/2011/27 MIKAYLA Lacy Provider [address] [place] [address] documented as of this encounter
--- OUTSIDE RECORDS SUMMARY | 2022-01-17 22:28 | XMS_ITS | Encounter Summary ---
:1965 Author Organization [place] Address [address] [place] [address] Care Team Providers Name Role Phone Noreen Hills APRN METAL STORAGE WORKER Unavailable [phone] Noreen Hills APRN METAL STORAGE WORKER Primary Care Provider [phone] Kalyan Galvan Unavailable Unavailable Lashae Trevion [facility] Unavailable [phone] Eduardo Sharma MD Unavailable Marcelo Artis PA-C Unavailable [phone] Rodrigo Man PA-C Unavailable [phone] Encounter Details Date Type Department Care Team Description 11/02/2020 [facility] Provider, Histor ical Social History Tobacco Use Types Packs/Day Years [...] How often do you attend druze or roman catholic Patient refused 08/08/2019 services? [...] Priority Date/Time Associated Diagnosis Comme nts XR COMPLETE SPINE Routine 09/20/2000 12:00 AM Res ults for this SCOLIOSIS 1 VIEW CDT procedure a re in the results section. documented in this encounter Results XR Complete Spine Scoliosis 1 View (09/20/2000 12:00 AM CDT) Anatomical Region Laterality Modality Spine Other Specimen (Source) Anatomical Location Collection Method / Collectio n Time Received Time / Laterality Volume Narrative 09/20/2000 12:00 AM CDT See Historical Hospital Medical Record f or documentation Procedure Note Provider, Historical - 11/02/2020Formatt ing of this note might be different from the original. See Historical Hospital Medical Record f or documentation Historical Provider IMG DIAGNOSTIC IMAGING ORDER ILDEFONSO documented in this encounter Visit Diagnoses Not on filedocumented in this encounter Additional Health Concerns Assessment Noted Time PHQ-9 Depression Total Score: 5 03/16/2020 7:09 AM CDT documented as of this encounter Care Teams Sat Instructor Relationship Specialty Start Date End Date Noreen Hills PCP - General Nurse Practitioner 01/09/19 12/12/21 SEAN Haley METAL STORAGE WORKER [address] [facility] [place] [phone] Noreen Hills Assigned PCP 06/16/18 SEAN Haley METAL STORAGE WORKER [address] [facility] [place] [address] Kalyan Galvan Personal Advocate & 08/08/19 Liaison (PAL) Lashae Trevino Pharmacist Pharmacist 10/14/19 12/01/20 [facility] [address] [facility] [place] [phone] Eduardo Sharma MD Assigned Sleep Provider 04/02/20 05/07/[address] [place] [id number] Marcelo Artis Assigned Musculoskeletal 08/25/20 08/20/21 MIKAYLA Nuno Provider [address] [facility] [address] [place], [place] [address] Rodrigo Man Assigned Surgical 08/25/2011/27 MIKAYLA Lacy Provider [address] [place] [address] documented as of this encounter
--- OUTSIDE RECORDS SUMMARY | 2022-01-17 22:28 | XMS_ITS | Encounter Summary ---
:1965 Author Organization [place] Address [address] [place] [address] Care Team Providers Name Role Phone Noreen Hills APRN PIT HOIST OPERATOR Unavailable [phone] Noreen Hills APRN PIT HOIST OPERATOR Primary Care Provider [phone] Kalyan Galvan Unavailable Unavailable Lashae Trevino [facility] Unavailable [phone] Eduardo Sharma MD Unavailable Marcelo Artis PA-C Unavailable [phone] Rodrigo Man PA-C Unavailable [phone] Reason for Referral Consultation (Routine) - Closed Specialty Diagnoses / Procedures Referred By Contact Refer red To Contact Rheumatology Diagnoses Polyarthralgia Kavin Fitzgerald [facility] and [address] [place] [id number] [place] [phone] Phone: Referral ID Status Reason Start Date Expiration Date Visits Requ ested Visits Authorized [id number] Closed 11/12/2020 11/12/2021 1 1 Reason for Visit Reason Comments Musculoskeletal Problem bilat legs and hands Encounter Details Date Type Department Care Team Description 11/10/2020 Office Visit [facility] Lizzie Fitzgerald (Primary Clinic Pino Fernandez, Dx) [address] [facility] [address] [facility] [place] [address] [place] [address] [phone] Social History Tobacco Use Types Packs/Day Years [...] How often do you attend religious or moravian Patient refused 08/08/2019 services? Do [...] - Rheumatology Referral; Future Kavin Fitzgerald PA-C [facility] Guzman is a 55 year old [...] s/p cervical fusion. Migraines consistent--topamax. SH: Work: [employer] at [employer] in [employer]. Standing all day. FH: mother and daughter [...] Name Type Priority Associated Diagnoses Order [facility] Rheumatology Referral Referral Routine Polyarthralgia Expe cted: [...] UNIVERS ITY OF tive 2:05 PM CDT [facility] Comment: ? Reference range: <1:40 ??NEGATIVE 1:40 - 1:80 ??BORDERLINE POSITIVE >1:80 POSITIVE FALGUNI pattern 1 DENSE FINE SPECKLED 11/11/2020 2:05 PM CDT [facility] FALGUNI titer 1 1:160 11/11/2020 2:05 PM CDT [facility] Specimen Anatomical Collection Method Collection Time Receive d Time (Source) Location / / Volume Laterality Blood 11/10/2020 2:29 PM 1 3:04 CDT PM CDT Kavin Fitzgerald PA-C LAB - BLOOD ORDERABLES Performing Organization Address City/State/ZIP Code Phon e Number [facility] [address] [place], [place] [id number] [place] [address] (ABNORMAL) Erythrocyte sedimentation rate auto (11/10/2020 2:29 PM CDT) P athologist Signature Sed Rate 40 (H) 0 - 30 mm/h 11/10/2020 [facility] 3:21 PM CDT [facility] Specimen Anatomical Collection Method Collection Time Receive d Time (Source) Location / / Volume Laterality Blood 11/10/2020 2:29 PM 1 3:04 CDT PM CDT Kavin Fitzgerald PA-C LAB - BLOOD ORDERABLES Performing Organization Address City/State/ZIP Code Phon e Number [address] [address] [phone] Rheumatoid factor (11/10/2020 2:29 PM CDT) P athologist Signature Rheumatoid <7 <12 IU/mL 11/11/2020 [facility] Factor 11:52 AM CDT [facility] Specimen Anatomical Collection Method Collection Time Receive d Time (Source) Location / / Volume Laterality Blood 11/10/2020 2:29 PM 1 3:04 CDT PM CDT Kavin Fitzgerald PA-C LAB - BLOOD ORDERABLES Performing Organization Address City/State/ZIP Code Phon e Number [address] Cyclic Citrullinated Peptide Antibody IgG (11/10/2020 2:29 PM CDT) Patholo gist Method Time Signature Cyclic 2 <7 U/mL 11/11/2020 [facility] Citrullinated 2:03 PM CDT [facility] Antibody, [facility] Comment: Negative Specimen Anatomical Collection Method Collection Time Receive d Time (Source) Location / / Volume Laterality Blood 11/10/2020 2:29 PM 1 3:04 CDT PM CDT Kavin Fitzgerald PA-C LAB - BLOOD ORDERABLES Performing Organization Address City/State/ZIP Code Phon e Number [address] CRP inflammation (11/10/2020 2:29 PM CDT) Analysis Performed At Patho logist Time Signature CRP Inflammation <2.9 0.0 - 8.0 11/10/2020 [facility] F mg/L 8:40 PM CDT [facility] Specimen Anatomical Collection Method Collection Time Receive d Time (Source) Location / / Volume Laterality Blood 11/10/2020 2:29 PM 1 3:04 CDT PM CDT Kvain Fitzgerald PA-C LAB - BLOOD ORDERABLES Performing Organization Address City/State/ZIP Code Phon e Number [address] [place] [address] [facility] CBC with platelets differential (11/10/2020 2:29 PM CDT) [facility] Method Time Signature WBC 5.5 4.0 [...] [facility] Lymphocytes 10e9/L 3:14 PM CDT [facility] Absolute 0.5 0.0 - 1.3 11/10/2020 [facility] Monocytes 10e9/L 3:14 PM CDT [facility] Absolute 0.2 0.0 - 0.7 11/10/2020 [facility] Eosinophils 10e9/L 3:14 PM CDT [facility] Absolute 0.1 0.0 - 0.2 11/10/2020 [facility] Basophils 10e9/L 3:14 PM CDT [facility] Diff Method Automated 11/10/2020 [place] Method 3:14 PM CDT [facility] Specimen Anatomical Collection Method Collection Time Receive d Time (Source) Location / / Volume Laterality Blood 11/10/2020 2:29 PM 3:04 CDT PM CDT Kavin Fitzgerald PA-C LAB - BLOOD ORDERABLES Performing Organization Address City/State/ZIP Code Phon e Number [facility] [address] [place] [address] [phone] (ABNORMAL) Comprehensive metabolic panel (11/10/2020 2:29 PM CDT) Analysis Performed At Patho logist Time Signature Sodium 142 133 - 144 11/10/2020 [facility] mmol/L 7:51 PM CDT [facility] Potassium 4.0 3.4 - 5.3 11/10/2020 [facility] mmol/L 7:51 PM CDT [facility] Chloride 112 (H) 94 - 109 11/10/2020 [facility] mmol/L 7:51 PM CDT [facility] Carbon Dioxide 27 20 - 32 11/10/2020 [facility] mmol/L 7:58 PM CDT [facility] Anion Gap 4 3 - 14 11/10/2020 [facility] mmol/L 7:58 PM CDT [facility] Glucose 96 70 - 99 11/10/2020 [facility] mg/dL 7:58 PM CDT [facility] Urea Nitrogen 14 7 - 30 11/10/2020 [facility] mg/dL 7:58 PM CDT [facility] Creatinine 0.74 0.52 - 11/10/2020 [facility] 1.04 mg/dL 7:58 PM CDT [facility] GFR Estimate >90 >60 11/10/2020 [facility] mL/min/{1. 7:58 PM [facility] 73_m2} [facility] Comment: Non GFR Calc Starting 05/28/2018, serum creatinine ba sed estimated GFR (eGFR) will be calculated using the Chronic Kidney Dise [employer] [employer] [facility] Epidemiology Collaboration (CKD-EPI) equation. GFR Estimate If >90 >60 mL/min/{1.73_m2} 11/10/2020 7: 58 PM [facility] Black [facility] Comment: GFR Calc Starting 05/28/2018, serum creatinine ba sed estimated GFR (eGFR) will be calculated using the Chronic Kidney Dise [employer] [facility] Epidemiology Collaboration (CKD-EPI) equation. Calcium 9.3 8.5 - 10.1 mg/dL 11/10/2020 7:58 PM [facility] Bilirubin Total 0.6 0.2 - 1.3 mg/dL 11/10/2020 8:01 PM [facility] Albumin 3.6 3.4 - 5.0 g/dL 11/10/2020 8:01 PM [facility] Protein Total 7.2 6.8 - 8.8 g/dL 11/10/2020 8:01 PM [facility] Alkaline Phosphatase 143 40 - 150 U/L 11/10/2020 8:01 PM [facility] ALT 23 0 - 50 U/L 11/10/2020 8:01 PM [facility] AST 16 0 - 45 U/L 11/10/2020 8:01 PM [facility] Specimen Anatomical Collection Method Collection Time Receive d Time (Source) Location / / Volume Laterality Blood 11/10/2020 2:29 PM 3:04 CDT PM CDT Kavin Fitzgerald PA-C LAB - BLOOD ORDERABLES Performing Organization Address City/State/ZIP Code Phon e Number [facility] [address] [place] [address] [facility] documented in this encounter Visit Diagnoses Diagnosis Polyarthralgia - Primary Pain in joint, multiple sites documented in this encounter Additional Health Concerns Assessment Noted Time PHQ-9 Depression Total Score: 7 11/10/2020 1:31 PM CDT documented as of this encounter Care Teams Collections Manager Relationship Specialty Start Date End Date Noreen Hills PCP - General Nurse Practitioner 01/09/19 12/12/21 SEAN Haley PIT HOIST OPERATOR [address] [facility] [place] [address] Noreen Hills Assigned PCP 06/16/18 SEAN Haley PIT HOIST OPERATOR [address] [facility] [place] [address] Kalyan Galvan Personal Advocate & 08/08/19 Liaison (PAL) Lashae Trevino Pharmacist Pharmacist 10/14/19 12/01/20 [facility] [address] [facility] [address] [place], [place] [phone] Eduardo Sharma MD Assigned Sleep Provider 04/02/20 05/07/21 [address] [place] [address] Marcelo Artis Assigned Musculoskeletal 08/25/20 08/20/21 MIK[facility]LA Nuno Provider [address] [facility] [address] [place] [address] Rodrigo Man Assigned Surgical 08/25/2011/27 MIK[facility]LA Lacy Provider [address] [place] [address] documented as of this encounter
--- OUTSIDE RECORDS SUMMARY | 2022-01-17 22:29 | XMS_ITS | Encounter Summary ---
:1965 Author Organization [place] Address [address] [place] [address] Care Team Providers Name Role Phone Noreen Hills APRN WIRE LATHER Unavailable [phone] Noreen Hills APRN WIRE LATHER Primary Care Provider [phone] Kalyan Galvan Unavailable Unavailable Lashae Trevino [facility] Unavailable [phone] Encounter Details Date Type Department Care Team Description 01/13/2020 Telephone [facility] Noreen Hills Eagan APRN WIRE LATHER [address] [facility] 3[address] [facility] [address] [place] [address] [place] [address] [phone] Social History Tobacco Use Types Packs/Day Years [...] How often do you attend gnosticist or tenriism Patient refused 08/08/2019 services? Do [...] AM CDT Let pt know she can pepper picker anytime. Edel Mosqueda MA Telephone Encounter - Noreen Hills APRN CNP - 01/13/2020 9:56 AM CDT Please call pt to schedule lab visit to pepper picker FIT documented in this encounter Plan [...] Depression Total Score: 9 08/09/2019 7:03 AM SURVEY PARTY CHIEF documented as of this encounter Care Teams Dandy Operator Relationship Specialty Start Date End Date Noreen Hills PCP - General Nurse Practitioner 01/09/19 12/12/21 SEAN Haley WIRE LATHER [address] [facility] [place] [address] Noreen Hills Assigned PCP 06/16/18 SEAN Haley WIRE LATHER [address] [facility] [place] [address] Kalyan Galvan Personal Advocate & 08/08/19 Liaison (PAL) Lashae Trevino Pharmacist Pharmacist 10/14/19 12/01/20 [facility] [address] [facility] [place] [address] documented as of this encounter
--- OUTSIDE RECORDS SUMMARY | 2022-01-17 22:29 | XMS_ITS | Encounter Summary ---
:1965 Author Organization [place] Address [address] [place] [address] Care Team Providers Name Role Phone Noreen Hills APRN AIRCONDITIONING DRAFTING OFFICER Unavailable [phone] Noreen Hills APRN AIRCONDITIONING DRAFTING OFFICER Primary Care Provider [phone] Kalyan Galvan Unavailable Unavailable Lashae Trevino [facility] Unavailable [phone] Eduardo Sharma MD Unavailable Rios Monteiro MD Unavailable Reason for Visit Reason Comments Urgent Care UTI Pt is c/o that she has been having pain with urination and urinary frequency since Sunday. She noticed some blood on tissue when she wiped after urinating. She has not had a fever. Encounter Details Date Type Department Care Team Description 07/17/2020 Office Visit [facility] Steph Sunny, Acute UTI (Primary Dx); Urgent Care Pino Alejandro PA-C Dysuria; [address] Nonspecific finding on examination of [place], [place] [address] [address] [place] [address] Social History Tobacco Use [...] How often do you attend caodaism or islam Patient refused 08/08/2019 services? Do you belong to any clubs or organizations such as No 08/08/2019 caodaism groups, [employer], frasonarDesign or athletic groups, or school groups? How [...] with No / Unsure 07/17/2020 1:32 PM RUBBER GOODS SUPERVISOR someone who was confirmed or suspected to have Coronavirus / COVID-19? documented as of this encounter Last Filed Vital Signs Vital Sign Reading Time Taken Comments Blood Pressure 132/70 07/17/2020 1:44 PM RUBBER GOODS SUPERVISOR Pulse 94 07/17/2020 1:44 PM RUBBER GOODS SUPERVISOR Temperature 36.8 ??C (98.3 ??F) 07/17/2020 1:44 PM RUBBER GOODS SUPERVISOR Respiratory Rate 12 07/17/2020 1:44 PM RUBBER GOODS SUPERVISOR Oxygen Saturation 96% 07/17/2020 1:44 PM RUBBER GOODS SUPERVISOR Inhaled Oxygen Concentration - - Weight 80.3 kg (177 lb) 07/17/2020 1:44 PM RUBBER GOODS SUPERVISOR Height - - Body Mass Index 32.37 01/12/2020 3:45 PM CDT documented in this encounter Patient Instructions Patient InstructionsStaci Herrera PA-C - 07/17/2020 1:35 PM RUBBER GOODS SUPERVISOR Images from the original note were not included. (N39.0) Acute UTI (primary encounter diagnosis) Comment: Plan: cefdinir (OMNICEF) 300 MG capsule, fluconazole (DIFLUCAN) 150 MG tablet (R30.0) Dysuria Comment: Plan: *UA reflex to Microscopic and Culture ([facility] (except [place] and [place]), Urine Microscopic Patient Education Understanding Urinary Tract [...] toreach the bladder or kidneys in men. [employer] last reviewed this educational content on 06/11/2019 ?? [phone] [employer]. [address] [place] [address], [place] [address]. All rights reserved. This information is not intended as a substitute for professional medical care. Always follow your healthcare professional's instructions. ER GOODS SUPERVISOR documented in this encounter Progress Notes Staci [...] Plan: *UA reflex to Microscopic and Culture ([facility] (except [place] and [place]), Urine Microscopic See orders in [facility] If not improving or if condition worsens, [...] pain SKIN: no suspicious lesions or rashes ER GOODS SUPERVISOR documented in this encounter Nursing Notes Blank [...] completed using cuff size: kait Burgos R.N. ER GOODS SUPERVISOR documented in this encounter Plan of Treatment Not on filedocumented as of this encounter Procedures Procedure Name Priority Date/Time Associated Diagnosis Comme nts URINE CULTURE Routine 07/17/2020 2:16 PM Nonspecific finding R esults for this RUBBER GOODS SUPERVISOR on examination of procedure are in urine the results section. URINE MICROSCOPIC Routine 07/17/2020 2:03 PM Dysuria Resu lts for this RUBBER GOODS SUPERVISOR procedure are i n the results section. UA MACROSCOPIC WITH Routine 07/17/2020 2:03 PM Dysuria Re sults for this REFLEX TO RUBBER GOODS SUPERVISOR procedure are i n MICROSCOPIC AND the results CULTURE section. documented in this encounter Results (ABNORMAL) Urine Culture Aerobic Bacterial (07/17/2020 2:16 PM RUBBER GOODS SUPERVISOR) Component Value Ref Test Analysis Performed At Patholo gist [facility] Method Time Signature Specimen Midstream Urine INFECTIOUS Description DISEASES DI[facility], [facility] Special Specimen 07/18/2020 INFECTIOUS Requests received in 6:51 PM RUBBER GOODS SUPERVISOR DISEASES preservative DIAGNOSTIC LABORATORY, [facility] Culture Micro 10,000 to 50,000 colonies/mL 021 INFECTIOUS Escherichia coli 10:02 PM DISEASES (A) RUBBER GOODS SUPERVISOR DIAGNOSTIC LABORATORY, [facility] Specimen (Source) Anatomical Collection Method Collection Time Re ceived Time Location / / Volume Laterality Examination of 07/17/2020 2:16 07/17/2020 2:17 midstream urine PM RUBBER GOODS SUPERVISOR PM RUBBER GOODS SUPERVISOR specimen (procedure) Organism Antibiotic Method Susceptibility Escherichia [...] MICRO GENERAL ORDE RABASAF Performing Organization Address City/[facility]/ZIP Code Phon e Number INFECTIOUS DISEASES DIAGNOSTIC [address] [facility] [address] [address] LABORATORY, [facility] (ABNORMAL) Urine Microscopic (07/17/2020 2:03 PM RUBBER GOODS SUPERVISOR) [facility] gist Method Time Signature WBC Urine 50-100 (A) OTO5^0 - 5 07/17/2020 [facility] /HPF 2:15 PM RUBBER GOODS SUPERVISOR [facility] RBC Urine 25-50 (A) OTO2^O - 2 07/17/2020 [facility] /HPF 2:15 PM RUBBER GOODS SUPERVISOR [facility] Squamous Few FEW^Few 07/17/2020 [facility] Epithelial /LPF /LPF 2:15 PM RUBBER GOODS SUPERVISOR [facility] [place] N Urine Renal Tub Epi Few (A) NEG^Negati 07/17/2020 [facility] ve /HPF 2:15 PM RUBBER GOODS SUPERVISOR [facility] Bacteria Urine Many (A) NEG^Negati 07/17/2020 [facility] ve /HPF 2:15 PM RUBBER GOODS SUPERVISOR [facility] Specimen Anatomical Collection Method Collection Time Receive d Time (Source) Location / / Volume Laterality 07/17/2020 2:03 PM 2:04 RUBBER GOODS SUPERVISOR PM RUBBER GOODS SUPERVISOR Staci Correa PA-C LAB - URINE ORDERABLES Performing Organization Address City/[facility] Phon e Number [facility] [address] [place] [phone] (ABNORMAL) *UA reflex to Microscopic and Culture ([facility] (except [place] [facility]) (07/17/2020 2:03 PM RUBBER GOODS SUPERVISOR) [facility] Method Time Signature Color Urine Brown 07/17/2020 [facility] 2:15 PM RUBBER GOODS SUPERVISOR [facility] Appearance Urine Slightly 07/17/2020 [place] Cloudy 2:15 PM RUBBER GOODS SUPERVISOR [facility] Glucose Urine Negative NEG^Negat 07/17/2020 [place] jaki mg/dL 2:15 PM RUBBER GOODS SUPERVISOR [facility] Bilirubin Urine Negative NEG^Negat 07/17/2020 [place] jaki 2:15 PM RUBBER GOODS SUPERVISOR [facility] Ketones Urine Negative NEG^Negat 07/17/2020 [place] jaki mg/dL 2:15 PM RUBBER GOODS SUPERVISOR [facility] Specific Sixes >1.030 1.003 - 07/17/2020 [place] Urine 1.035 2:15 PM RUBBER GOODS SUPERVISOR [facility] Blood Urine Large (A) NEG^Negat 07/17/2020 [place] jaki 2:15 PM RUBBER GOODS SUPERVISOR [facility] pH Urine 5.5 5.0 - 7.0 07/17/2020 [place] pH 2:15 PM RUBBER GOODS SUPERVISOR [facility] Protein Albumin >=300 (A) NEG^Negat 07/17/2020 [place] Urine jaki mg/dL 2:15 PM RUBBER GOODS SUPERVISOR [facility] Urobilinogen 0.2 0.2 - 1.0 07/17/2020 [place] Urine EU/dL 2:15 PM RUBBER GOODS SUPERVISOR [facility] Nitrite Urine Negative NEG^Negat 07/17/2020 [place] jaki 2:15 PM RUBBER GOODS SUPERVISOR [facility] Leukocyte Small (A) NEG^Negat 07/17/2020 [place] Esterase Urine jaki 2:15 PM RUBBER GOODS SUPERVISOR [facility] Source Midstream 07/17/2020 [place] Urine 2:04 PM RUBBER GOODS SUPERVISOR [facility] Specimen (Source) Anatomical Collection Method Collection Time Re ceived Time Location / / Volume Laterality Examination of 07/17/2020 2:03 07/17/2020 2:04 midstream urine PM RUBBER GOODS SUPERVISOR PM RUBBER GOODS SUPERVISOR specimen (procedure) Staci Correa PA-C LAB - URINE ORDERABLES Performing Organization Address City/State/ZIP Code Phon e Number [facility] [address] [place] [phone] documented in this encounter Visit Diagnoses Diagnosis Acute UTI - Primary Urinary tract infection, site not specif ied Dysuria Nonspecific finding on examination of ur ine Other nonspecific finding on examination of urine documented in this encounter Additional Health Concerns Assessment Noted Time PHQ-9 Depression Total Score: 5 03/16/2020 7:09 AM CDT documented as of this encounter Care Teams System Integration Engineer Relationship Specialty Start Date End Date Noreen Hills PCP - General Nurse Practitioner 01/09/19 12/12/21 SEAN Haely AIRCONDITIONING DRAFTING OFFICER [address] [facility] [place] [address] Noreen Hills Assigned PCP 06/16/18 SEAN Haley AIRCONDITIONING DRAFTING OFFICER [address] [facility] [place] [address] Kalyan Galvan Personal Advocate & 08/08/19 Liaison (PAL) Lashae Trevino Pharmacist Pharmacist 10/14/19 12/01/20 [facility] 14[address] [facility] [place] [address] Eduardo Sharma MD Assigned Sleep Provider 04/02/20 05/07/21 [address]on [facility] [address] [place] [address] Rios Monteiro MD Assigned Musculoskeletal 04/02/20 08/24/20 [address] [facility] Provider [address] [place] [address] documented as of this encounter
--- OUTSIDE RECORDS SUMMARY | 2022-01-17 22:29 | XMS_ITS | Encounter Summary ---
:1965 Author Organization [place] Address [address] [place] [address] Care Team Providers Name Role Phone Noreen Hills APRN STREET ROLLER ENGINEER Unavailable [phone] ROLLER ENGINEER Primary Care Provider [phone] Kalyan Galvan Unavailable Unavailable Lashae Trevino [facility] Unavailable [phone] Reason for Visit Reason Comments Surgical Followup Right Trigger release, DOS , Dr. Monteiro Encounter Details Date Type Department Care Team Description 02/19/2020 Office Visit [facility] Marcelo Artis opedic aftercare Orth[facility] MIKAYLA Nuno (Primary Dx) [place] [address] [facility] [address] [facility] [address] [place] [address] [place] [address] [phone] Social History Tobacco Use Types Packs/Day Years [...] How often do you attend episcopal or catholic Patient refused 08/08/2019 services? Do [...] in bending with pain at site on customer resource specialist. 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 Marcelo Artis PA-C Dept. Orthopedic Surgery [facility] 02/19/2020 documented in this encounter Plan of Treatment Not on filedocumented as of this encounter Visit Diagnoses Diagnosis Orthopedic aftercare - Primary Unspecified orthopedic aftercare documented in this encounter Additional Health Concerns Assessment Noted Time PHQ-9 Depression Total Score: 9 08/09/2019 7:03 AM RADIOLOGIC TECHNOLOGY TEACHER documented as of this encounter Care Teams Oncology Rn Relationship Specialty Start Date End Date Noreen Hills PCP - General Nurse Practitioner 01/09/19 12/12/[address] ROLLER ENGINEER [address] [facility] [place] [address] Noreen Hills Assigned PCP 06/16/[address] ROLLER ENGINEER [address] [facility] [place] [address] Kalyan Galvan Personal Advocate & 08/08/19 Liaison (PAL) Lashae Trevino Pharmacist Pharmacist 10/14/19 12/01/20 Kiran, [facility] [address] [place] [address] documented as of this encounter
--- OUTSIDE RECORDS SUMMARY | 2022-01-17 22:29 | XMS_ITS | Encounter Summary ---
:1965 Author Organization [place] Address [address] [place] [address] Care Team Providers Name Role Phone Noreen Hills APRN ALMOND BLANCHER HAND Unavailable [phone] Noreen Hills APRN ALMOND BLANCHER HAND Primary Care Provider [phone] Kalyan Galvan Unavailable Unavailable Lashae Trevino [facility] Unavailable [phone] Eduardo Sharma MD Unavailable Rios Monteiro MD Unavailable Reason for Visit Reason Comments Other Entered automatically based on patient selection in [employer]. Encounter Details Date Type Department Care Team Description 07/16/2020 E-Visit [facility] Tatiana Marshall NP Other (Entered Clinic [address] automatically based on [address] [place] [address] DR tenorio... [facility] [facility] [address] [place] [address] [address] [place] [address] [phone] Social History Tobacco Use Types Packs/Day Years [...] How often do you attend jainism or religion Patient refused 08/08/2019 services? Do you belong to any clubs or organizations such as No 08/08/2019 jainism groups, [employer], [employer] or athletic groups, or school groups? How [...] with No / Unsure 07/17/2020 1:32 PM JACQUARD LOOM FIXER someone who was confirmed or suspected to have Coronavirus / COVID-19? documented as of this encounter Miscellaneous Notes Telephone Encounter - Lainey Wells - 07/16/2020 11:55 AM CST See message to pt. Lainey Russell on 07/16/2020 at 11:55 AM UARD LOOM FIXER Telephone Encounter - Tatiana Marshall NP - 07/16/2020 11:37 AM CST Provider E-Visit time total (minutes): -0 No reply, pt ended up going to for this problem UARD LOOM FIXER documented in this encounter Plan of Treatment [...] documented as of this encounter Care Teams Executive Secretary Relationship Specialty Start Date End Date Noreen Hills PCP - General Nurse Practitioner 01/09/19 12/12/21 SEAN Haley ALMOND BLANCHER HAND [address] [facility] [place] [id number] Noreen Hills Assigned PCP 06/16/18 SEAN Haley ALMOND BLANCHER HAND [address] [facility] [place] [address] Kalyan Galvan Personal Advocate & 08/08/19 Liaison (PAL) Lashae Trevino Pharmacist Pharmacist 10/14/19 12/01/20 CLAUDIA Beck [address] [id number] Eduardo Sharma MD Assigned Sleep Provider 04/02/20 05/07/21 [address] [place] [id number] Rios Monteiro MD Assigned Musculoskeletal 04/02/20 08/24/[id number] [place] [address] documented as of this encounter
--- OUTSIDE RECORDS SUMMARY | 2022-01-17 22:29 | XMS_ITS | Encounter Summary ---
:1965 Author Organization [place] Address [address] [place] [address] Care Team Providers Name Role Phone Noreen Hills APRN INSURANCE AGENT Unavailable [phone] Noreen Hills APRN INSURANCE AGENT Primary Care Provider [phone] Kalyan Galvan Unavailable Unavailable Lashae Trevino [facility] Unavailable [phone] Eduardo Sharma MD Unavailable Rios Monteiro MD Unavailable Marcelo Artis PA-C Unavailable [phone] Rodrigo Man PA-C Unavailable [phone] Reason for Visit Reason Comments Medication Refill Encounter Details Date Type Department Care Team Description 06/18/[address] [facility] Noreen Hills, Medication Refill Pino MULTIPLE COIL WINDER INSURANCE AGENT [address] [facility] [address] [place] [address] [address] [place] [address] [place] [address] [phone] Social History Tobacco Use Types Packs/Day Years [...] How often do you attend catholic or nondenominational Patient refused 08/08/2019 services? Do [...] 06/18/2020 10:53 AM CST Prescription approved [place] [facility] [place]ill Protocol. Desirae Champagne RN on 06/18/2020 at 10:52 AM INE COUNTER AGENT documented in this encounter Plan of [...] documented as of this encounter Care Teams Patent Leather Sorter Relationship Specialty Start Date End Date Noreen Hills PCP - General Nurse Practitioner 01/09/19 12/12/21 SEAN Haley INSURANCE AGENT [address] [facility] [place] [address] Noreen Hills Assigned PCP 06/16/18 SEAN Haley INSURANCE AGENT [address] [facility] [place] [address] Kalyan Galvan Personal Advocate & 08/08/19 Liaison (PAL) Lashae Trevino Pharmacist Pharmacist 10/14/19 12/01/20 [facility] 1440 [facility] [place] [address] Eduardo Sharma MD Assigned Sleep Provider 04/02/20 05/07/21 [address] [place] [id number] Rios Monteiro MD Assigned Musculoskeletal 04/02/20 08/24/20 7[address] [employer] Provider [address] [place] [address] Marcelo Artis Assigned Musculoskeletal 08/25/20 08/20/21 MIKAYLA Nuno Provider [address] [facility] [address] [place] [address] Rodrigo Man Assigned Surgical 08/25/2011/27 MIKAYLA Lacy Provider 6545 [facility] 450 [place], [place] [address] documented as of this encounter
--- OUTSIDE RECORDS SUMMARY | 2022-01-17 22:29 | XMS_ITS | Encounter Summary ---
:1965 Author Organization [place] Address [address] [place] [address] Care Team Providers Name Role Phone Noreen Hills APRN AGENT TELEGRAPHER Unavailable [phone] Noreen Hills APRN AGENT TELEGRAPHER Primary Care Provider [phone] Kalyan Galvan Unavailable Unavailable Lashae Trevino [facility] Unavailable [phone] Encounter Details Date Type Department Care [...] How often do you attend lutheran or jehovah's witness Patient refused 08/08/2019 services? [...] Depression Total Score: 9 08/09/2019 7:03 AM LOCAL OWNER OPERATOR TRUCK DRIVER documented as of this encounter Care Teams Kiln Mechanic Relationship Specialty Start Date End Date Noreen Hills PCP - General Nurse Practitioner 01/09/19 12/12/21 SEAN Haley AGENT TELEGRAPHER [address] [facility] [address] [place], [place] [address] Noreen Hills PCP 06/16/18 SEAN Haley AGENT TELEGRAPHER [address] [facility] [place] [address] Kalyan Galvan Personal Advocate & 08/08/19 Liaison (PAL) Lashae Trevino Pharmacist Pharmacist 10/14/19 12/01/20 [facility] [address] [facility] [address] [place], [place] [address] documented as of this encounter
--- OUTSIDE RECORDS SUMMARY | 2022-01-17 22:29 | XMS_ITS | Encounter Summary ---
:1965 Author Organization [place] Address [address] [place] [address] Care Team Providers Name Role Phone Noreen Hills APRN ROUGE PRESSER Unavailable [phone] Noreen Hills APRN ROUGE PRESSER Primary Care Provider [phone] Kalyan Galvan Unavailable Unavailable Lashae Trevino [facility] Unavailable [phone] Eduardo Sharma MD Unavailable Rios Monteiro MD Unavailable Marcelo Artis PA-C Unavailable [phone] Rodrigo Man PA-C Unavailable [phone] Reason for Visit Reason Onset Date Comments Refill Request 05/29/2020 omeprazole (PRILOSEC ) [address] capsule Encounter Details Date Type Department Care Team Description 05/29/2020 Refill [facility] Noreen Hillsill Req uest Clinic Pino Haley APRN CNP (omeprazole (PRILOSEC) [address] [place] [address]302 [facility] [address] capsule) [facility] [address] [place] [address] [place] [address] [phone] Social History Tobacco Use Types Packs/Day Years [...] How often do you attend yazidi or jainism Patient refused 08/08/2019 services? Do [...] Keyona Mantilla RN - 05/31/2020 10:42 AM ART TRACER Patient has refills remaining with requesting pharmacy. Keyona Palacios - Registered Nurse [facility] TRACER Telephone Encounter - Kartik Javier - 05/29/2020 5:01 PM CST Alternative Requested: Insurance covers max 90 days in a year. Please submit PA to continue therapy. TRACER documented in this encounter Plan of Treatment [...] as of this encounter Care Teams Hospital Food Service Worker Relationship Specialty Start Date End Date Noreen Hills PCP - General Nurse Practitioner 01/09/19 12/12/21 SEAN Haley ROUGE PRESSER [address] [facility] [place] [id number] Noreen Hills Assigned PCP 06/16/18 SEAN Haley ROUGE PRESSER [address] [facility] [place] [address] Kalyan Galvan Personal Advocate & 08/08/19 Liaison (PAL) Lashae Trevino Pharmacist Pharmacist 10/14/19 12/01/20 Kiran [facility] [address] [place] [address] Eduardo Sharma MD Assigned Sleep Provider 04/02/20 05/07/[address] [place] [id number] Rios Monteiro MD Assigned Musculoskeletal 04/02/20 08/24/20 [address] [facility] Provider [address] [place], [place] [address] Marcelo Artis Assigned Musculoskeletal 08/25/20 08/20/21 MIKAYLA Nuno Provider [address] [place], [place] [address] Rodrigo Man Assigned Surgical 08/25/2011/27 MIKAYLA Lacy Provider [address] [place] [address] documented as of this encounter
--- OUTSIDE RECORDS SUMMARY | 2022-01-17 22:29 | XMS_ITS | Encounter Summary ---
:1965 Author Organization [place] Address [address] [place] [address] Care Team Providers Name Role Phone Noreen Hills APRN SECURITY SALES MANAGER Unavailable [phone] Noreen Hills APRN SECURITY SALES MANAGER Primary Care Provider [phone] Kalyan Galvan Unavailable Unavailable Lashae Trevino [facility] Unavailable [phone] Encounter Details Date Type Department Care [...] How often do you attend buddhist or zoroastrian Patient refused 08/08/2019 services? Do [...] Depression Total Score: 9 08/09/2019 7:03 AM BULK COOLER INSTALLER documented as of this encounter Care Teams Digital Marketing Officer Relationship Specialty Start Date End Date Noreen Hills PCP - General Nurse Practitioner 01/09/19 12/12/21 SEAN Haley SECURITY SALES MANAGER [address] [facility] [address] [place], [place] [address] Noreen Hills PCP 06/16/18 SEAN Haley SECURITY SALES MANAGER [address] [facility] [place] [address] Kalyan Galvan Personal Advocate & 08/08/19 Liaison (PAL) Lashae Trevino Pharmacist Pharmacist 10/14/19 12/01/20 [facility] [address] [facility] [address] [place], [place] [address] documented as of this encounter
--- OUTSIDE RECORDS SUMMARY | 2022-01-17 22:29 | XMS_ITS | Encounter Summary ---
:1965 Author Organization [place] Address [address] [place] [address] Care Team Providers Name Role Phone Noreen Hills APRN, CNP Unavailable [phone] Noreen Hills APRN, CNP Primary Care Provider [phone] Kalyan Galvan Unavailable Unavailable Lashae Trevino [facility] Unavailable [phone] Eduardo Sharma MD Unavailable Rios Monteiro MD Unavailable Reason for Visit Reason Onset Date Comments Prior Auth - Medication 06/17/2020 Omeprazole Encounter Details Date Type Department Care Team Description 06/17/2020 Telephone [facility] Noreen Hills Prior Auth - Medication Clinic Pino Haley APRN CNP (Omeprazole) [address] [place] [address] [facility] [address] [place] [address] [place] [address] [phone] Social History Tobacco Use Types Packs/Day Years [...] How often do you attend confucianist or moravian Patient refused 08/08/2019 services? Do you belong to any clubs or organizations such as No 08/08/2019 confucianist groups, [employer], fraternal or athletic groups, or school groups? [...] Approved Dose/Quantity: Reference #: Insurance Company: GAYATHRI [employer]ALL[employer] - Expected CoPay: CoPay Card Available: Foundation Assistance Needed: Which Pharmacy is filling the prescription (Not needed for infusion/clinic administered): [place] [address] Pharmacy Notified: Yes Patient Notified: Yes Instructed pharmacy to notify patient when script is ready to picking supervisor/ship. TY GROOVING MACHINE OPERATOR Telephone Encounter - Rj Salinas - 06/17/2020 3:15 PM CST Images from the original note were not included. Central Prior Authorization Team PA Initiation Medication: Omeprazole Insurance Company: [employer]RI [employer] - Pharmacy Filling the Rx: [facility]AY[place] [address] Filling Pharmacy Filling Pharmacy Fax: Start Date: 06/17/2020 TY GROOVING MACHINE OPERATOR Telephone Encounter - Charlotte Mark CMA - 06/17/2020 11:02 AM CST Prior Authorization Retail Medication Request Medication/Dose: Omeprazole DR 20mg capsules ICD code (if different than what is on RX): Previously Tried and Failed: Rationale: Insurance requires a prior authorization for more than 90 capsules in 365 days. Insurance Name: Insurance ID: Pharmacy Information (if different than what is on RX) Name: GAYATHRI TY GROOVING MACHINE OPERATOR documented in this encounter Plan of Treatment Not on filedocumented as of this encounter Visit Diagnoses Not on filedocumented in this encounter Additional Health Concerns Assessment Noted Time PHQ-9 Depression Total Score: 5 03/16/2020 7:09 AM CDT documented as of this encounter Care Teams Hair Worker Relationship Specialty Start Date End Date Noreen Hills PCP - General Nurse Practitioner 01/09/19 12/12/21 SEAN Haley EMPLOYEE ADVISER [address] [facility] [place] [address] Noreen Hills Assigned PCP 06/16/18 SEAN Haley EMPLOYEE ADVISER [address] [facility] [place] [address] Kalyan Galvan Personal Advocate & 08/08/19 Liaison (PAL) Lashae Trevino Pharmacist Pharmacist 10/14/19 12/01/20 [facility] 1440 [facility] [place] [id number] Eduardo Sharma MD Assigned Sleep Provider 04/02/20 05/07/21 [address] [facility] [address] [place] [id number] Rios Monteiro MD Assigned Musculoskeletal 04/02/20 08/24/20 [address] [facility] Provider ROS[address] [place] [id number] documented as of this encounter
--- OUTSIDE RECORDS SUMMARY | 2022-01-17 22:29 | XMS_ITS | Encounter Summary ---
:1965 Author Organization [place] Address [address] [place] [address] Care Team Providers Name Role Phone Noreen Hills APRN MOLDED GRID AND PARTS INSPECTOR Unavailable [phone] Noreen Hills APRN MOLDED GRID AND PARTS INSPECTOR Primary Care Provider [phone] Kalyan Galvan Unavailable Unavailable Lashae Trevino [facility] Unavailable [phone] Reason for Visit Reason Comments Pain Consultation (Routine) - Closed Specialty Diagnoses / Procedures Referred By Contact Refer red To Contact Diagnoses Pain of right thumb Ramin Romero MD [address] [facility] 06 11 [place], [place] [address] Referral ID Status Reason Start Date Expiration Date Visits Requ ested Visits Authorized [id number] Closed 01/02/2020 01/01/2021 1 1 Encounter Details Date Type Department Care Team Description 01/12/2020 Office Visit [facility] Rios Monteiro Trigg er finger of right thumb (Primary Dx); Orthopedic Clinic Pain of right thumb; [place] [address] [place] Hand arthritis [address] [facility] [address] [place] [address] [phone] (Wo rk) Social History Tobacco Use Types [...] How often do you attend gnosticism or hindu Patient refused 08/08/2019 services? Do [...] Reading Time Taken Comments Blood Pressure 128/72 01/12/2020 3:45 PM CDT Pulse - - Temperature - - Respiratory Rate - - Oxygen Saturation - - Inhaled Oxygen Concentration - - Weight 82.1 kg (181 lb) 01/12/2020 3:45 PM CDT Height 157.5 cm (5' 2) 01/12/2020 3:45 PM CDT Body Mass Index 33.11 01/12/2020 3:45 PM CDT documented in this encounter Progress Notes Rios Monteiro MD - 01/12/2020 4:20 PM CDT HISTORY OF PRESENT ILLNESS: Megan Choi is a 54 year old female who is seen in consultation at the request of Dr. Romero for right thumb pain. Patient reports onset of pain ~12/19/19. She reports waking with excruciating painin the thumb. She had trial of immobilization with worsening of pain. She was seen in UC and recommended to follow up with ortho surgery. 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 She has been able to modify her work duties to accommodate her right thumb. Present symptoms: Pain is located at the base of the thumb and MCP, and radiates to the tip of her finger. Increased pain in the morning with movement of her thumb. She reports stiffness with both flexion and extension. Swelling once brace is removed for resting, and icing purposes. She has popping ofher thumb, with noticeable clunking. Current pain level: 10/10, Worst pain level: 10/10 Treatments tried to this point: thumb brace, ice, ibuprofen Orthopedic PMH: mass removal of the left dorsal aspect of the wrist Past Medical History: Diagnosis Date ??? Aftercare [...] Agatha Null, DPM, Pod; Location: [facility] OR Family History Problem Relation Age of Onset ??? Cardiovascular Mother RI age 72 ??? Diabetes Mother Type II ??? Hypertension Mother ??? Lipids Mother ??? Arthritis Mother OA ??? Kidney Disease Mother 70 ??? Cardiovascular Father RI early 40s, subsequent bipass ??? Hypertension Father [...] Diabetes Brother ??? Kidney Disease Brother 55 Social History Socioeconomic History ??? Marital status: [...] a week Gets together: Patient refused Attends hindu service: Patient refused Active member of club or organization: No Attends meetings of clubs or organizations: Patient refused Relationship status: ??? Intimate partner violence Fear of current or ex partner: Not on file Emotionally abused: Not on file Physically abused: Not on file Forced sexual activity: Not on file Other Topics Concern ??? Parent/sibling w/ CABG, RI or angioplasty before 65F 55M? No Social History Narrative ??? Not on file Current Outpatient Medications Medication Sig Dispense Refill [...] ??? fluticasone (FLONASE) 50 MCG/ACT nasal spray [place] 1-2 sprays into both nostrils daily 16 [...] not needed(Patient not taking: Reported on 08/21/2017) Allergies Allergen Reactions ??? Erythromycin Rash As a child REVIEW OF SYSTEMS: CONSTITUTIONAL: NEGATIVE for fever, chills, change in weight INTEGUMENTARY/SKIN: NEGATIVE for worrisome rashes, moles or lesions EYES: NEGATIVE for vision changes or irritation ENT/MOUTH: NEGATIVE for ear, mouth and throat problems RESP: NEGATIVE for significant cough or SOB BREAST: NEGATIVE for masses, tenderness or discharge CV: Chest pain GI: Constipation, reflux/ heartburn : Negative MUSCULOSKELETAL: See HPI above NEURO: paresthesias ENDOCRINE: NEGATIVE for temperature intolerance, skin/hair changes HEME/ALLERGY/IMMUNE: NEGATIVE for bleeding problems PSYCHIATRIC: NEGATIVE for changes in mood or affect PHYSICAL EXAM: BP 128/72 (BP Location: Right arm, Patient Position: Chair, Cuff Size: Adult Regular) Ht 1.575 m (5' 2) Wt 82.1 kg (181 lb) LMP 10/30/2011 BMI 33.11 kg/m?? Body mass index is 33.11 kg/m??. GENERAL APPEARANCE: healthy, alert and no distress HEENT: No apparent thyroid megaly. Clear sclera with normal ocular movement RESPIRATORY: No labored breathing SKIN: no suspicious lesions or rashes NEURO: Normal strength and tone, mentation intact and speech normal VASCULAR: Good pulses, and capillary refill LYMPH: no lymphadenopathy PSYCH: mentation appears normal and affect normal/bright MUSCULOSKELETAL: Not in acute distress Normal gait Symmetrical appearance of both hands including the thumbs Slight prominence on the dorsal aspect of IP joint, right thumb Relatively minimal tenderness with a palpation of the IP joint More tenderness at the A1 herb of the thumb Mild triggering but no locking however, she does not have freedom of movement with a flexion as she does on the left thumb Pain with any attempt of flexion of the thumb No specific tenderness at the thumb CMC joint, right Circulation is intact Sensation is intact ASSESSMENT: 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 Presence of dorsal bone spurat the IP joint of the thumb was pointed out. The bone spurs on the dorsal aspect of the proximal phalanx. In addition there is a bone spur off the distal phalanx visualized on the AP view. 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 We talked about immobilization versus cortisone injections versus surgery. Cord injection have not worked well for her in other parts. For that reason, considering all the options, she wants to go ahead with more definitive surgical intervention at this time. We had a long discussion about the details of surgery as well as the possibility of long healing process for tendinitis even after the surgery. Potential risks were informed. Right trigger thumb release under local anesthesia will be scheduled. She understands different choices of anesthesia and she feels comfortable doing it under local anesthesia. Imaging Interpretation: XR FINGER RT G/E 2 VW 01/02/2020 11:32 AM ?? HISTORY: Patient complains of atraumatic right thumb pain (distal first metatarsal area, first MCP joint, proximal phalanx and interphalangeal jointt). The interphalangeal has been popping in and out with flexion.; Pain of right thumb ?? IMPRESSION: IP joint degenerative changes. No evidence of fracture or subluxation. ?? MD Rios AGUILAR MD Department of Orthopedic Surgery Disclaimer: This note consists of symbols derived from keyboarding, dictation and/or voice recognition software. As a result, there may be errors in the script that have gone undetected. Please consider this when interpreting information found in this chart. documented in this encounter Plan of Treatment Scheduled Orders Name Type Priority Associated Diagnoses Order S chedule Chelsey-Operative Procedures Routine Trigger finger of right Or dered: 01/12/2020 Worksheet thumb documented as of this encounter Visit Diagnoses Diagnosis Trigger finger of right thumb - Primary Pain of right thumb Pain in limb Hand arthritis Unspecified arthropathy, hand documented in this encounter Additional Health Concerns Assessment Noted Time PHQ-9 Depression Total Score: 9 08/09/2019 7:03 AM COMPUTER NUMERICAL CONTROL OPERATOR documented as of this encounter Care Teams Agricultural Engineering Teacher Relationship Specialty Start Date End Date Noreen Hills PCP - General Nurse Practitioner 01/09/19 12/12/21 SEAN Haley MOLDED GRID AND PARTS INSPECTOR [address] [facility] [place] [address] Noreen Hills Assigned PCP 06/16/18 SEAN Haley MOLDED GRID AND PARTS INSPECTOR [address] [facility] [place] [address] Kalyan Galvan Personal Advocate & 08/08/19 Liaison (PAL) Lashae Trevino Pharmacist Pharmacist 10/14/19 12/01/20 [facility] 14[address] [facility] [place] [address] documented as of this encounter
--- OUTSIDE RECORDS SUMMARY | 2022-01-17 22:29 | XMS_ITS | Encounter Summary ---
:1965 Author Organization [place] Address [address] [place] [address] Care Team Providers Name Role Phone Noreen Hills APRN GENETICS PHYSICIAN Unavailable [phone] Noreen Hills APRN GENETICS PHYSICIAN Primary Care Provider [phone] Kalyan Galvan Unavailable Unavailable Lashae Trevino [facility] Unavailable [phone] Encounter Details Date Type Department Care [...] How often do you attend alevism or pentecostalism Patient refused 08/08/2019 services? Do [...] Depression Total Score: 9 08/09/2019 7:03 AM CABLE WIRER documented as of this encounter Care Teams Canning Machine Operator Relationship Specialty Start Date End Date Noreen Hills PCP - General Nurse Practitioner 01/09/19 12/12/21 SEAN Haley GENETICS PHYSICIAN [address] [facility] [address] [place], [place] [address] Noreen Hills PCP 06/16/18 SEAN Haley GENETICS PHYSICIAN [address] [facility] [place] [address] Kalyan Galvan Personal Advocate & 08/08/19 Liaison (PAL) Lashae Trevino Pharmacist Pharmacist 10/14/19 12/01/20 [facility] [address] [facility] [place], [place] [address] documented as of this encounter
--- OUTSIDE RECORDS SUMMARY | 2022-01-17 22:29 | XMS_ITS | Encounter Summary ---
:1965 Author Organization [place] Address [address] [place] [address] Care Team Providers Name Role Phone Noreen Hills APRN INDUSTRIAL TECH INSTRUCTOR Unavailable [phone] Noreen Hills APRN INDUSTRIAL TECH INSTRUCTOR Primary Care Provider [phone] Kalyan Galvan Unavailable Unavailable Lashae Trevino [facility] Unavailable [phone] Encounter Details Date Type Department Care Team Description 03/09/2020 Telephone [facility] Marcelo Artis, Orthopedic Clinic [place]AY[place] [address] [facility] [address] [facility] [address] [place] [address] [place], [place] [id number] [phone] Social History Tobacco Use Types Packs/Day Years [...] How often do you attend hinduism or evangelical Patient refused 08/08/2019 services? Do [...] cardboard with a scissors due to discomfort. Numerical Control Tool Programmer informed Megan that swelling is normal after surgery, and make take ~6 weeks to fully dissipate. She approved of verbiage for updated work letter to say the following OK to return to work with no restrictions on 03/11/20. If she is unable to tolerate her normal work duties and she will follow up with my office for reevaluation. Patient will access letter via Wikidata. Latisha Morales ATC Telephone Encounter - Kleber [...] Total Score: 9 08/09/2019 7:03 AM METAL MOULDER'S ASSISTANT documented as of this encounter Care Teams Frit Coater Relationship Specialty Start Date End Date Noreen Hills PCP - General Nurse Practitioner 01/09/19 12/12/21 SEAN Haley INDUSTRIAL TECH INSTRUCTOR [address] [facility] [place] [address] Noreen Hills Assigned PCP 06/16/18 SEAN Haley INDUSTRIAL TECH INSTRUCTOR [address] [facility] [place] [address] Kalyan Galvan Personal Advocate & 08/08/19 Liaison (PAL) Lashae Trevino Pharmacist Pharmacist 10/14/19 12/01/20 Kiran [facility] [address] [place] [address] documented as of this encounter
--- OUTSIDE RECORDS SUMMARY | 2022-01-17 22:29 | XMS_ITS | Encounter Summary ---
:1965 Author Organization [place] Address [address] [place] [address] Care Team Providers Name Role Phone Noreen Hills APRN ENERGY EFFICIENCY ENGINEER Unavailable [phone] Noreen Hills APRN ENERGY EFFICIENCY ENGINEER Primary Care Provider [phone] Kalyan Galvan Unavailable Unavailable Lashae Trevino [facility] Unavailable [phone] Encounter Details Date Type Department Care Team Description 01/13/2020 Orders Only [facility] Typ e 2 diabetes mellitus [facility] with complication, without [address] [facility] ng-term current use of Drive insulin (H) [...] How often do you attend catholic or christianity Patient refused 08/08/2019 services? Do [...] 6.1 (H) 0 - 5.6 % 01/13/2020 [place] 9:27 AM CDT [facility] [place] Comment: Normal <5.7% Prediabetes 5.7-6.4% ??Diab etes 6.5% or higher - adopted from ADA consensus guidelines. Specimen Anatomical Collection Method Collection Time Receive d Time (Source) Location / / Volume Laterality Blood specimen 01/13/2020 8:55 AM 020 8:56 (specimen) CDT AM CDT Noreen Hills APRN ENERGY EFFICIENCY ENGINEER LAB - BLOOD ORDERABLES Performing Organization Address City/State/ZIP Code Phon e Number [facility] [address] [facility] [place] [address] documented in this encounter Visit Diagnoses Diagnosis Type 2 diabetes mellitus with complicati on, without long-term current use of insulin (H) documented in this encounter Additional Health Concerns Assessment Noted Time PHQ-9 Depression Total Score: 9 08/09/2019 7:03 AM NUCLEAR MEDICINE CHIEF TECHNOLOGIST documented as of this encounter Care Teams Barn Boss Relationship Specialty Start Date End Date Noreen Hills PCP - General Nurse Practitioner 01/09/19 12/12/21 SEAN Haley ENERGY EFFICIENCY ENGINEER [address] [facility] [place] [address] Noreen Hills Assigned PCP 06/16/18 SEAN Haley ENERGY EFFICIENCY ENGINEER [address] [facility] [place] [address] Kalyan Galvan Personal Advocate & 08/08/19 Liaison (PAL) Lashae Trevino Pharmacist Pharmacist 10/14/19 12/01/[facility] [address] [facility] [place] [address] documented as of this encounter
--- OUTSIDE RECORDS SUMMARY | 2022-01-17 22:29 | XMS_ITS | Encounter Summary ---
:1965 Author Organization [place] Address [address] [place] [address] Care Team Providers Name Role Phone Noreen Hills APRN ADVERTISING MATERIAL DISTRIBUTOR Unavailable [phone] Noreen Hills APRN, CNP Primary Care Provider [phone] Kalyan Galvan Unavailable Unavailable Lashae Trevino [facility] Unavailable [phone] Reason for Visit Reason Comments Diabetes Encounter Details Date Type Department Care Team Description 03/16/2020 Virtual Visit [facility] Noreen Hills Migraine without status migrainosus, not intractable, unspecified migraine type (Primary Dx); Clinic [place] Haley APRN Snoring; [address] [place] ADVERTISING MATERIAL DISTRIBUTOR Persistent insomnia; [address] [facility] Chest pain, unspecified type ; [address] [facility] [address] Type 2 diabetes mellitus with complicati on, without long-term current use of insulin (H) [place] [address] [place] [address] Social History Tobacco Use [...] How often do you attend confucianism or religion Patient refused 08/08/2019 services? Do [...] this encounter Progress Notes Noreen Hills, SEAN ADVERTISING MATERIAL DISTRIBUTOR - 03/16/2020 7:15 AM CDT Megan Choi [...] would you like to be contacted at? [phone] How would you like to obtain your [...] in feet. 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 Has explored sitting down at work but [...] follow-ups on file. Noreen Hills APRN CNP [facility] [place] Phone call duration: 35 minutes [...] documented as of this encounter Care Teams Retail Field Representative Relationship Specialty Start Date End Date Noreen Hills PCP - General Nurse Practitioner 01/09/19 12/12/21 SEAN Haley ADVERTISING MATERIAL DISTRIBUTOR [address] [facility] [place] [address] Noreen Hills Assigned PCP 06/16/18 SEAN Haley ADVERTISING MATERIAL DISTRIBUTOR [address] [facility] [place] [phone] Kalyan Galvan Personal Advocate & 08/08/19 Liaison (PAL) Lashae Trevino Pharmacist Pharmacist 10/14/19 12/01/20 Kiran [facility] [address] [place] [address] documented as of this encounter
--- OUTSIDE RECORDS SUMMARY | 2022-01-17 22:29 | XMS_ITS | Encounter Summary ---
:1965 Author Organization [place] Address [address] [place] [address] Care Team Providers Name Role Phone Noreen Hills APRN CLARIFIER OPERATOR HELPER Unavailable [phone] Noreen Hills APRN CLARIFIER OPERATOR HELPER Primary Care Provider [phone] Kalyan Galvan Unavailable Unavailable Lashae Trevino [facility] Unavailable [phone] Eduardo Sharma MD Unavailable Rios Monteiro MD Unavailable Marcelo Artis PA-C Unavailable [phone] Rodrigo Man PA-C Unavailable [phone] Reason for Visit Reason Comments Medication Refill Encounter Details Date Type Department Care Team Description 07/10/2020 Refill [facility] Noreen Hills, Medication Refill [place] PEN TENDER CLARIFIER OPERATOR HELPER [address] [facility] [address] [place] [address] [address] [place] [address] [place] [address] [phone] Social History Tobacco Use Types Packs/Day Years [...] How often do you attend cheondoism or hinduism Patient refused 08/08/2019 services? Do [...] Champagne RN on 07/13/2020 at 11:11 AM AS GOODS FABRICATOR Telephone Encounter - Lainey Wells - 07/12/2020 2:22 PM CST The pt called back and she says that she takes anywhere from 8-10 a month. Lainey Wells on 07/12/2020 at 2:25 PM AS GOODS FABRICATOR Telephone Encounter - Lainey Wells - 07/12/2020 10:59 AM CST 1st attempt l/m. Lainey Wells on 07/12/2020 at 10:59 AM AS GOODS FABRICATOR Telephone Encounter - Desirae Champagne RN - 07/12/2020 10:02 AM CST Please call patient and see how many doses of sumatriptan patient has used in the past month. Shouldbe using 8 doses or fewer per month. Desirae Champagne RN on 07/12/2020 at 10:07 AM AS GOODS FABRICATOR documented in this encounter Plan of Treatment [...] documented as of this encounter Care Teams Dentistry Professor Relationship Specialty Start Date End Date Noreen Hills PCP - General Nurse Practitioner 01/09/19 12/12/21 SEAN Haley CLARIFIER OPERATOR HELPER [address] [facility] [place] [address] Noreen Hills Assigned PCP 06/16/18 SEAN Haley CLARIFIER OPERATOR HELPER [address] [facility] [place] [address] Kalyan Galvan Personal Advocate & 08/08/19 Liaison (PAL) Lashae Trevino Pharmacist Pharmacist 10/14/19 12/01/20 [facility] [address] [facility] [facility] [address] [place], [place] [id number] Eduardo Sharma MD Assigned Sleep Provider 04/02/20 05/07/21 [address] [place] [address] Rios Monteiro MD Assigned Musculoskeletal 04/02/20 08/24/[address] Provider [address] [place] [address] Marcelo Artis Assigned Musculoskeletal 08/25/20 08/20/21 MIKAYLA Nuno Provider [address] [place] [address] Rodrigo Man Assigned Surgical 08/25/2011/27 MIKAYLA Lacy Provider [address] [place] [address] documented as of this encounter
--- OUTSIDE RECORDS SUMMARY | 2022-01-17 22:29 | XMS_ITS | Encounter Summary ---
:1965 Author Organization [place] Address [address] [place] [address] Care Team Providers Name Role Phone Noreen Hills APRN, CNP Unavailable [phone] Noreen Hills APRN, CNP Primary Care Provider [phone] Kalyan Galvan Unavailable Unavailable Lashae Trevino [facility] Unavailable [phone] Reason for Visit Reason Onset Date Comments Forms 01/05/2020 Encounter Details Date Type Department Care Team Description 01/05/2020 Telephone [facility] Noreen Hills, Forms [place] ESTRADA SPEEDER HAND [address] [facility] [address] [facility] [address] [place] [address] [place] [address] [phone] Social History Tobacco Use Types Packs/Day Years [...] How often do you attend mandaen or gnosticism Patient refused 08/08/2019 services? Do [...] ready for pick at the front desk monitor. Pt will picking tech the letter tomorrow. I told her theclinic [...] a ligament. ?? PLAN: follow up with finance specialist. I ordered an finance specialist referral. Continue wearing the right thumb [...] How would you like the form/letter returned: Field Agent Patient Notified form requests are processed in 3-5 business days:Yes Okay to leave a detailed message? Yes Home number on file [phone] (home) Please reach out to pt when ready Kiya Gleason on 01/05/2020 at 10:25 AM documented in this encounter Plan of Treatment Not on filedocumented as of this encounter Visit Diagnoses Not on filedocumented in this encounter Additional Health Concerns Assessment Noted Time PHQ-9 Depression Total Score: 9 08/09/2019 7:03 AM INSOLE BUFFER documented as of this encounter Care Teams Barrel Polisher Relationship Specialty Start Date End Date Noreen Hills PCP - General Nurse Practitioner 01/09/19 12/12/21 SEAN Haley SPEEDER HAND [address] [facility] [place] [phone] Noreen Hills Assigned PCP 06/16/18 SEAN Haley SPEEDER HAND [address] [facility] [place] [address] Kalyan Galvan Personal Advocate & 08/08/19 Liaison (PAL) Lashae Trevino Pharmacist Pharmacist 10/14/19 12/01/20 CLAUDIA Beck [address] [place] [address] documented as of this encounter
--- OUTSIDE RECORDS SUMMARY | 2022-01-17 22:29 | XMS_ITS | Encounter Summary ---
:1965 Author Organization [place] Address [address] [place] [address] Care Team Providers Name Role Phone Noreen Hills APRN, CNP Unavailable [phone] Noreen Hills APRN, CNP Primary Care Provider [phone] Kalyan Galvan Unavailable Unavailable Lashae Trevino [facility] Unavailable [phone] Reason for Visit Reason Onset Date Comments Medication Request 03/22/2020 Metformin. Encounter Details Date Type Department Care Team Description 03/22/2020 Telephone [facility] Noreen Hills Medication Request Clinic [place] Haley APRN CNP (Metformin.) [address] [facility] [address] [place] [address] [place] [address] [phone] Social History Tobacco Use Types Packs/Day Years [...] How often do you attend amish or presybeterian Patient refused 08/08/2019 services? Do [...] at 9:14 AM on March 23, 2020 [facility] Health Guide [phone] Telephone Encounter - Charlotte Mark CMA - 03/22/2020 10:33 AM CDT Fax rec'd from [facility] pharmacy, directions for Metformin 500mg state take [...] as of this encounter Care Teams Slab Polisher Relationship Specialty Start Date End Date Noreen Hills PCP - General Nurse Practitioner 01/09/19 12/12/21 SEAN Haley SCREENING REPRESENTATIVE [address] [facility] [place] [address] Noreen Hills Assigned PCP 06/16/18 SEAN Haley SCREENING REPRESENTATIVE [address] [facility] [place] [address] Kalyan Galvan Personal Advocate & 08/08/19 Liaison (PAL) Lashae Trevino Pharmacist Pharmacist 10/14/19 12/01/20 Kiran [facility] [address] [place] [address] documented as of this encounter
--- OUTSIDE RECORDS SUMMARY | 2022-01-17 22:29 | XMS_ITS | Encounter Summary ---
:1965 Author Organization [place] Address [address] [place] [address] Care Team Providers Name Role Phone Noreen Hills APRN CONCRETE CRUSHER LOADER OPERATOR Unavailable [phone] Noreen Hills APRN CONCRETE CRUSHER LOADER OPERATOR Primary Care Provider [phone] Kalyan Galvan Unavailable Unavailable Lashae Trevino [facility] Unavailable [phone] Encounter Details Date Type Department Care [...] How often do you attend synagogue or pentecostal Patient refused 08/08/2019 services? Do [...] Depression Total Score: 9 08/09/2019 7:03 AM GRAPHIC ARTIST documented as of this encounter Care Teams Veneer Cutter Relationship Specialty Start Date End Date Noreen Hills PCP - General Nurse Practitioner 01/09/19 12/12/21 SEAN Haley CONCRETE CRUSHER LOADER OPERATOR [address] [facility] [address] [place], [place] [address] JeanaNoreen girard PCP 06/16/18 SEAN Haley CONCRETE CRUSHER LOADER OPERATOR [address] [facility] [address] [place], [place] [address] Kalyan Galvan Personal Advocate & 08/08/19 Liaison (PAL) Lashae Trevino Pharmacist Pharmacist 10/14/19 12/01/20 [facility] [address] [facility] [address] [place], [place] [address] documented as of this encounter
--- OUTSIDE RECORDS SUMMARY | 2022-01-17 22:29 | XMS_ITS | Encounter Summary ---
:1965 Author Organization [place] Address [facility] [place] [address] Care Team Providers Name Role Phone Pankaj Woods APRN, CNP Unavailable [phone] Pankaj Woods APRN, CNP Primary Care Provider [phone] Kalyan Galvan Unavailable Unavailable Lashae Trevino [facility] Unavailable [phone] Reason for Referral Diagnostic Imaging CT Scan (Routine) - Closed Specialty Diagnoses / Procedures Referred By Contact Refer red To Contact Diagnoses Chest pain, unspecified type Pankaj Woods, Procedures CT Angiogram coronary artery [facility] [address] [place] [address] Referral ID Status Reason Start Date Expiration Date Visits Requ ested Visits Authorized [id number] Closed 03/16/2020 03/16/2021 1 1 Encounter Details Date Type Department Care Team Description 03/16/2020 E-Consult [facility] Ian Hamilton Chest pain, unspecified Clinic Moncho Cade MD type (Primary Dx) [address] [facility] [place] [address] [place] [address] Social History Tobacco Use [...] How often do you attend restorationism or mosque Patient refused 08/08/2019 services? Do [...] as of this encounter Care Teams Fuel Testing Technician Relationship Specialty Start Date End Date Pankaj Woods PCP - General Nurse Practitioner 01/09/19 12/12/21 SEAN Haley DIRECTOR OF AGRICULTURE [address] [facility] [place] [phone] Pankaj Woods Assigned PCP 06/16/18 SEAN Haley DIRECTOR OF AGRICULTURE [address] [facility] [place] [phone] Kalyan Galvan Personal Advocate & 08/08/19 Liaison (PAL) Lashae Trevino Pharmacist Pharmacist 10/14/19 12/01/20 Kiran, [facility] [address] [facility] [place] [phone] documented as of this encounter
--- OUTSIDE RECORDS SUMMARY | 2022-01-17 22:29 | XMS_ITS | Encounter Summary ---
:1965 Author Organization [place] Address [address] [place] [address] Care Team Providers Name Role Phone Noreen Hills APRN MOLD SHAKER Unavailable [phone] Noreen Hills APRN MOLD SHAKER Primary Care Provider [phone] Kalyan Galvan Unavailable Unavailable Lashae Trevino [facility] Unavailable [phone] Eduardo Sharma MD Unavailable Rios Monteiro MD Unavailable Reason for Visit Reason Onset Date Comments Refill Request 06/17/2020 Encounter Details Date Type Department Care Team Description 06/16/2020 Refill [facility] Noreen Hills istine, Refill Request [place] ESTRADA MOLD SHAKER [address] [place] [address] [place] [address] [phone] Social History Tobacco Use Types Packs/Day Years [...] organizations such as No 08/08/2019 christian groups, [employer] I/Os, fraEfficient Cloud or athletic groups, or school groups? How [...] Keyona Mantilla RN - 06/16/2020 11:13 AM CORSETIER Prescription approved per [facility], [facility] or [facility] refill protocol. Keyona Palacios - Registered Nurse [facility] ETIER Telephone Encounter - Christy Pelayo RN - 06/16/2020 11:05 AM CORSETIER Patient needing refill of medication per call. Christy Pelayo RN Flex ETIER documented in this encounter Plan of Treatment Not on filedocumented as of this encounter Visit Diagnoses Diagnosis Gastroesophageal reflux disease without esophagitis Esophageal reflux documented in this encounter Additional Health Concerns Assessment Noted Time PHQ-9 Depression Total Score: 5 03/16/2020 7:09 AM CDT documented as of this encounter Care Teams Track Man Relationship Specialty Start Date End Date Noreen Hills PCP - General Nurse Practitioner 01/09/19 12/12/21 SEAN Haley MOLD SHAKER [address] [facility] [place] [address] Noreen Hills Assigned PCP 06/16/18 SEAN Haley MOLD SHAKER [address] [facility] [place] [address] Kalyan Galvan Personal Advocate & 08/08/19 Liaison (PAL) Lashae Trevino Pharmacist Pharmacist 10/14/19 12/01/20 [facility] [address] [facility] [place] [address] Eduardo Sharma MD Assigned Sleep Provider 04/02/20 05/07/21 [address] [place] [address] Rios Monteiro MD Assigned Musculoskeletal 04/02/20 08/24/20 [address] [facility] Provider [address] [place] [address] documented as of this encounter
--- OUTSIDE RECORDS SUMMARY | 2022-01-17 22:29 | XMS_ITS | Encounter Summary ---
:1965 Author Organization [place] Address [address] [place] [address] Care Team Providers Name Role Phone Noreen Hills APRN PROGRAM ARRANGER Unavailable [phone] Noreen Hills APRN PROGRAM ARRANGER Primary Care Provider [phone] Kalyan Galvan Unavailable Unavailable Lashae Trevino [facility] Unavailable [phone] Encounter Details Date Type Department Care [...] How often do you attend denominational or bahai Patient refused 08/08/2019 services? Do [...] documented as of this encounter Care Teams Clamshell Operator Relationship Specialty Start Date End Date Noreen Hills PCP - General Nurse Practitioner 01/09/19 12/12/21 SEAN Haley PROGRAM ARRANGER [address] [facility] [address] [place], [place] [address] Noreen Hills PCP 06/16/18 SEAN Haley PROGRAM ARRANGER [address] [facility] [place] [address] Kalyan Galvan Personal Advocate & 08/08/19 Liaison (PAL) Lashae Trevino Pharmacist Pharmacist 10/14/19 12/01/20 [facility] [address] [facility] [address] documented as of this encounter
--- OUTSIDE RECORDS SUMMARY | 2022-01-17 22:29 | XMS_ITS | Encounter Summary ---
:1965 Author Organization [place] Address [address] [place] [address] Care Team Providers Name Role Phone Noreen Hills APRN MOTORCYCLE POLICE OFFICER Unavailable [phone] Noreen Hills APRN MOTORCYCLE POLICE OFFICER Primary Care Provider [phone] Kalyan Galvan Unavailable Unavailable Lashae Trevino [facility] Unavailable [phone] Reason for Visit Reason Onset Date Comments Covid 19 Testing 02/06/2020 Encounter Details Date Type Department Care Team Description 02/06/2020 Orders Only [facility] Marcelo Artis zachary finger of Urgent Care Jolly Nuno PA-C right thumb [address] [address] [place], [place] [id number] (Wo rk) Social History Tobacco Use Types [...] (Coronavirus) by PCR (02/06/2020 4:07 PM CDT) [facility] Method Time Signature COVID-19 Nasopharyngeal 02/06/2020 [place] Virus PCR to 4:35 PM CDT [facility] Source [facility] COVID-19 Not Detected 02/07/2020 [facility] Virus PCR to 2:10 PM CDT [facility] - GENOMICS Result CENTER LABORATORY Comment: Collection [...] N1,N2 gene targets of CoV2 and human BARTENDER HELPER as an internal control. A negative result [...] (Centers for Disease Control) Testing performed by [facility], Room 1-210, [address] [place] [address]. T his test was developed and its performance characteristics determined b y the [facility]. It has not been cleared or [...] Organization Address City/State/ZIP Code Phon e Number [address] [address] [facility] Room: 1-[address] [address] [facility] documented in this encounter Visit Diagnoses Diagnosis Trigger finger of right thumb documented in this encounter Additional Health Concerns Assessment Noted Time PHQ-9 Depression Total Score: 9 08/09/2019 7:03 AM COSMETOLOGIST documented as of this encounter Care Teams Supervisor Particleboard Relationship Specialty Start Date End Date Noreen Hills PCP - General Nurse Practitioner 01/09/19 12/12/21 SEAN Haley MOTORCYCLE POLICE OFFICER [address] [facility] [place] [address] Noreen Hills Assigned PCP 06/16/18 SEAN Haley MOTORCYCLE POLICE OFFICER 3305 [facility] [place] [address] Kalyan Galvan Personal Advocate & 08/08/19 Liaison (PAL) Lashae Trevino Pharmacist Pharmacist 10/14/19 12/01/20 Kiran, [facility] [address] [place] [address] documented as of this encounter
--- OUTSIDE RECORDS SUMMARY | 2022-01-17 22:29 | XMS_ITS | Encounter Summary ---
:1965 Author Organization [place] Address [address] [place] [address] Care Team Providers Name Role Phone Noreen Hills APRN PLATEMAN Unavailable [phone] Noreen Hills APRN PLATEMAN Primary Care Provider [phone] Kalyan Galvan Unavailable Unavailable Lashae Trevino [facility] Unavailable [phone] Eduardo Sharma MD Unavailable Rios Monteiro MD Unavailable Reason for Visit Reason Comments Medication Refill Encounter Details Date Type Department Care Team Description 03/07/2020 Refill [facility] Noreen Hills, Medication Refill [place] MIRELESN PLATEMAN [address] [facility] [address] [place] [address] [address] [place] [address] [place] [address] [phone] Social History Tobacco Use Types Packs/Day Years [...] How often do you attend pentecostal or mandaeism Patient refused 08/08/2019 services? Do you belong to any clubs or organizations such as No 08/08/2019 pentecostal groups, unions, [email or web address] or athletic groups, or school groups? How [...] the [facility] refill protocol Radha Manning, RN [facility] -- Triage Nurse documented in this encounter Plan of Treatment Not on filedocumented as of this encounter Visit Diagnoses Diagnosis Persistent insomnia Persistent disorder of initiating or martínez ntaining sleep documented in this encounter Additional Health Concerns Assessment Noted Time PHQ-9 Depression Total Score: 9 08/09/2019 7:03 AM INBOUND SALES REPRESENTATIVE documented as of this encounter Care Teams Student Driving Instructor Relationship Specialty Start Date End Date Noreen Hills PCP - General Nurse Practitioner 01/09/19 12/12/21 SEAN Haley PLATEMAN [address]305 [facility] [place] [address] Noreen Hills Assigned PCP 06/16/18 SEAN Haley PLATEMAN [address]305 [facility] [place] [address] Kalyan Galvan Personal Advocate & 08/08/19 Liaison (PAL) Lashae Trevino Pharmacist Pharmacist 10/14/19 12/01/20 [facility] 1440 [facility] [place] [address] Eduardo Sharma MD Assigned Sleep Provider 04/02/20 05/07/21 [address] [place] [id number] Rios Monteiro MD Assigned Musculoskeletal 04/02/20 08/24/20 [address] [facility] Provider [place] [place] [address] documented as of this encounter
--- OUTSIDE RECORDS SUMMARY | 2022-01-17 22:29 | XMS_ITS | Encounter Summary ---
:1965 Author Organization [place] Address [address] [place] [address] Care Team Providers Name Role Phone Noreen Hills APRN AUTOMOBILE UPHOLSTERY TRIM INSTALLER Unavailable [phone] Noreen Hills APRN, CNP Primary Care Provider [phone] Kalyan Galvan Unavailable Unavailable Lashae Trevino [facility] Unavailable [phone] Eduardo Sharma MD Unavailable Rios Monteiro MD Unavailable Reason for Visit Reason Onset Date Comments Panel Management 04/06/2020 eye exam Encounter Details Date Type Department Care Team Description 04/06/2020 Telephone [facility] JeanaNoreen girarda saad (eye Clinic [place] Haley APRN AUTOMOBILE UPHOLSTERY TRIM INSTALLER exam) [address] [facility] [address] [place] [address] [place] [address] [phone] Social History Tobacco Use Types Packs/Day Years [...] How often do you attend sikhism or confucianism Patient refused 08/08/2019 services? Do [...] appt in Jun 2020. Christi Panda CMA CLUTCH REBUILDER Telephone Encounter - Christi Panda MA - 04/09/2020 9:09 AM CDT Reminder letter mailed to patient. Christi Panda CMA Telephone Encounter - Christi Panda MA - 04/06/2020 3:33 PM CDT Images from the original note were not included. Patient Quality Outreach Summary: Patient is due/failing the following: Eye Exam and Immunizations Type of outreach: Sent Lendinero message. Questions for provider review: None Start [...] documented as of this encounter Care Teams Seed Analysis Laboratory Assistant Relationship Specialty Start Date End Date Noreen Hills PCP - General Nurse Practitioner 01/09/19 12/12/21 SEAN Haley AUTOMOBILE UPHOLSTERY TRIM INSTALLER [address] [facility] [place] [address] Noreen Hills Assigned PCP 06/16/18 SEAN Haley AUTOMOBILE UPHOLSTERY TRIM INSTALLER 3[address] [facility] [place] [address] Kalyan Galvan Personal Advocate & 08/08/19 Liaison (PAL) Lashae Trevino Pharmacist Pharmacist 10/14/19 12/01/[facility] 1440 [facility] [place] [phone] Eduardo Sharma MD Assigned Sleep Provider 04/02/20 05/07/21 [address] [place] [address] [place] [address] Rios Monteiro MD Assigned Musculoskeletal 04/02/20 08/24/20 [address] [facility] Provider [address] [place], [place] [address] documented as of this encounter
--- OUTSIDE RECORDS SUMMARY | 2022-01-17 22:29 | XMS_ITS | Encounter Summary ---
:1965 Author Organization [place] Address [address] [place] [address] Care Team Providers Name Role Phone Noreen Hills APRN WORKDAY DIRECTOR Unavailable [phone] Noreen Hills APRN WORKDAY DIRECTOR Primary Care Provider [phone] Kalyan Galvan Unavailable Unavailable Lashae Trevino [facility] Unavailable [phone] Encounter Details Date Type Department Care Team Description 01/12/2020 Orders Only [facility] care maintenance [facility] 3305 [facility] [address] [place] [address] Social History [...] How often do you attend presybeterian or hindu Patient refused 08/08/2019 services? Do [...] Time Signature Occult Blood Negative NEG^Negati 01/18/2020 [facility] FIT ve 4:19 PM CDT [facility] Specimen Anatomical Collection Method Collection Time Receive d Time (Source) Location / / Volume Laterality Stool specimen 01/12/2020 8:00 AM 020 1:16 (specimen) CDT PM CDT Noreen Hills APRN WORKDAY DIRECTOR LAB - STOOLS ORDERABLES Performing Organization Address City/State/ZIP Code Phon e Number [facility] [address] [place] [address] [facility] documented in this encounter Visit Diagnoses Diagnosis Health care maintenance Unspecified general medical examination documented in this encounter Additional Health Concerns Assessment Noted Time PHQ-9 Depression Total Score: 9 08/09/2019 7:03 AM HEARING EXAMINER documented as of this encounter Care Teams Hr Operations Advisor Relationship Specialty Start Date End Date Noreen Hills PCP - General Nurse Practitioner 01/09/19 12/12/21 SEAN Haley WORKDAY DIRECTOR 3305 [facility] [place] [address] Noreen Hills Assigned PCP 06/16/18 SEAN Haley WORKDAY DIRECTOR 3305 [facility] [place] [phone] Kalyan Galvan Personal Advocate & 08/08/19 Liaison (PAL) Lashae Trevino Pharmacist Pharmacist 10/14/19 12/01/20 [facility] 1440 [facility] [place] [phone] documented as of this encounter
--- OUTSIDE RECORDS SUMMARY | 2022-01-17 22:29 | XMS_ITS | Encounter Summary ---
:1965 Author Organization [place] Address [address] [place] [address] Care Team Providers Name Role Phone Noreen Hills APRN, CNP Unavailable [phone] Noreen Hills APRN, CNP Primary Care Provider [phone] Kalyan Galvan Unavailable Unavailable Lashae Trevino [facility] Unavailable [phone] Eduardo Sharma MD Unavailable Rios Monteiro MD Unavailable Marcelo Artis PA-C Unavailable [phone] Rodrigo Man PA-C Unavailable [phone] Reason for Visit Reason Onset Date Comments Refill Request 06/14/2020 blood glucose monito ring (ONE TOUCH DELICA) lancets Refill Request 06/14/2020 blood glucose (ACCU- CHEK JNAICE) test strip Encounter Details Date Type Department Care Team Description 06/14/2020 Refill [facility] Noreen Hills Req uest (blood Clinic [place] Haley APRN CNP glucose monitoring (ONE [address] [place] TOUCH DELICA) lancets); [facility] Refclaudia Request (blood [address] [place] [address] glucose ([place] [id number] JANICE) test strip) [phone] Social History Tobacco Use Types Packs/Day Years [...] How often do you attend lutheran or yazidism Patient refused 08/08/2019 services? Do [...] Christy Pelayo RN - 06/16/2020 11:04 AM CONSUMER ADVOCATE Prescription approved per [facility] Refill Protocol. Christy Pelayo RN Flex UMER ADVOCATE Telephone Encounter - Wilda Gupta - 06/14/2020 3:55 PM CST Request from pharmacy states: ONE TOUCH VERIO TEST STRIPS and ONE TOUCH 30G DELICA LNC, UMER ADVOCATE documented in this encounter Plan of Treatment [...] documented as of this encounter Care Teams Horologist Apprentice Relationship Specialty Start Date End Date Noreen Hills PCP - General Nurse Practitioner 01/09/19 12/12/21 ESAN Haley KNITTED GOODS SHAPER 3305 [facility] [place] [address] Noreen Hills Assigned PCP 06/16/18 SEAN Haley KNITTED GOODS SHAPER [address]305 [facility] [place] [address] Kalyan Galvan Personal Advocate & 08/08/19 Liaison (PAL) Lashae Trevino Pharmacist Pharmacist 10/14/19 12/01/20 [facility] [address] [facility] [address] [place], [place] [address] Eduardo Sharma MD Assigned Sleep Provider 04/02/20 05/07/[address] [place] [address] Rios Monteiro MD Assigned Musculoskeletal 04/02/20 08/24/20 [id number] [facility] Provider [address] [place], [place] [address] Marcelo Artis Assigned Musculoskeletal 08/25/20 08/20/21 MIKAYLA Nuno Provider [address] [place], [place] [address] Rodrigo Man Assigned Surgical 08/25/2011/27 MIKAYLA Lacy Provider [address] [place] [address] documented as of this encounter
--- OUTSIDE RECORDS SUMMARY | 2022-01-17 22:29 | XMS_ITS | Encounter Summary ---
:1965 Author Organization [place] Address [address] [place] [address] Care Team Providers Name Role Phone Noreen Hills APRN DISTRIBUTION CENTER SUPERVISOR Unavailable [phone] Noreen Hills APRN DISTRIBUTION CENTER SUPERVISOR Primary Care Provider [phone] Kalyan Galvan Unavailable Unavailable Lashae Trevino [facility] Unavailable [phone] Encounter Details Date Type Department Care [...] How often do you attend caodaism or jewish Patient refused 08/08/2019 services? Do [...] Depression Total Score: 9 08/09/2019 7:03 AM TELEVISION WRITER documented as of this encounter Care Teams Stringed Instrument Repairer Relationship Specialty Start Date End Date Noreen Hills PCP - General Nurse Practitioner 01/09/19 12/12/21 SEAN Haley DISTRIBUTION CENTER SUPERVISOR [address] [facility] [address] [place], [place] [address] Noreen Hills PCP 06/16/18 SEAN Haley DISTRIBUTION CENTER SUPERVISOR [address] [place] [address] Kalyan Galvan Personal Advocate & 08/08/19 Liaison (PAL) Lashae Trevino Pharmacist Pharmacist 10/14/19 12/01/20 [facility] [address] [facility] [address] [place], [place] [address] documented as of this encounter
--- OUTSIDE RECORDS SUMMARY | 2022-01-17 22:29 | XMS_ITS | Encounter Summary ---
:1965 Author Organization [place] Address [address] [place] [address] Care Team Providers Name Role Phone Noreen Hills APRN STAIN REMOVER Unavailable [phone] Noreen Hills APRN STAIN REMOVER Primary Care Provider [phone] Kalyan Galvan Unavailable Unavailable Lashae Trevino [facility] Unavailable [phone] Reason for Visit Reason Onset Date Comments Schedule Surgery 01/13/2020 right thumb trigger finger Encounter Details Date Type Department Care Team Description 01/13/2020 [facility] [address] [facility] (r ight thumb trigger [place] [address] finger) [address] [place] [address] [address] [place] [address] [phone] Social History Tobacco Use Types Packs/Day Years [...] How often do you attend religious or sabianist Patient refused 08/08/2019 services? Do [...] completed: Not Applicable Date: 01/13/20 Avila Donnelly, Truck Guard documented in this encounter Plan of Treatment Not on filedocumented as of this encounter Results Asymptomatic COVID-19 Virus (Coronavirus) by PCR (02/06/2020 4:07 PM CDT) [facility] Method Time Signature COVID-19 Nasopharyngeal 02/06/2020 [facility] Virus PCR to 4:35 PM CDT [facility] COVID-19 Not Detected 02/07/2020 [facility] Virus PCR to 2:10 PM CDT [facility] GENOMICS Result CENTER LABORATORY Comment: Collection [...] N1,N2 gene targets of CoV2 and human TIE TAMPER as an internal control. A negative result [...] (Centers for Disease Control) [facility], [address] [place] [address]. T his test was developed and its performance characteristics determined b y the [facility]. It has not been cleared [...] Address City/State/ZIP Code Phon e Number [address] [address] [facility] LAB[facility] Room: 1-[address] [place] [address] [facility] documented in this encounter Visit Diagnoses Diagnosis Trigger finger of right thumb - Primary Pre-op testing Preoperative examination, unspecified documented in this encounter Additional Health Concerns Assessment Noted Time PHQ-9 Depression Total Score: 9 08/09/2019 7:03 AM BANQUET COORDINATOR documented as of this encounter Care Teams Cardiopulmonary Supervisor Relationship Specialty Start Date End Date Noreen Hills PCP - General Nurse Practitioner 01/09/19 12/12/21 SEAN Haley STAIN REMOVER 3301 [facility] [place] [phone] Noreen Hills Assigned PCP 06/16/18 SEAN Haley STAIN REMOVER 3305 [facility] [place] [phone] Kalyan Galvan Personal Advocate & 08/08/19 Liaison (PAL) Lashae Trevino Pharmacist Pharmacist 10/14/19 12/01/20 Kiran, [facility] [address] [place] [address] documented as of this encounter
--- OUTSIDE RECORDS SUMMARY | 2022-01-17 22:29 | XMS_ITS | Encounter Summary ---
:1965 Author Organization [place] Address [address] [place] [address] Care Team Providers Name Role Phone Noreen Hills APRN DATA MANAGEMENT MANAGER Unavailable [phone] Noreen Hills APRN DATA MANAGEMENT MANAGER Primary Care Provider [phone] Kalyan Galvan Unavailable Unavailable Lashae Trevino [facility] Unavailable [phone] Reason for Visit Reason Comments Medication Refill Encounter Details Date Type Department Care Team Description 02/05/2020 Refill [facility] Noreen Hills, Medication Refill [place] ESTRADA DATA MANAGEMENT MANAGER 3305 [facility] [address] [place] [address] [address] [place] [address] [place] [address] [phone] Social History Tobacco Use Types Packs/Day Years [...] How often do you attend samaritan or uatsdin Patient refused 08/08/2019 services? Do [...] Encounter - Noreen Hills APRN CNP - 02/05/2020 12:31 PM CDT Has upcoming appt Telephone Encounter - Desirae Champagne RN - 02/05/2020 11:10 AM CDT Routing refill request to provider for review/approval because: Elevated PHQ9 Desirae Champagne RN on 02/05/2020 at 11:10 AM documented in this encounter Plan of Treatment Not on filedocumented as of this encounter Visit Diagnoses Diagnosis Fibromyalgia Mylagia and myositis, unspecified documented in this encounter Additional Health Concerns Assessment Noted Time PHQ-9 Depression Total Score: 9 08/09/2019 7:03 AM BIOSTATISTICS TEACHER documented as of this encounter Care Teams Thread Spinner Relationship Specialty Start Date End Date Noreen Hills PCP - General Nurse Practitioner 01/09/19 12/12/21 SEAN Haley DATA MANAGEMENT MANAGER 3305 [facility] [place] [phone] Noreen Hills Assigned PCP 06/16/18 SEAN Haley DATA MANAGEMENT MANAGER 3305 [facility] [place] [address] Kalyan Galvan Personal Advocate & 08/08/19 Liaison (PAL) Lashae Trevino Pharmacist Pharmacist 10/14/19 12/01/20 [facility] 1440 [facility] [place] [phone] documented as of this encounter
--- OUTSIDE RECORDS SUMMARY | 2022-01-17 22:30 | XMS_ITS | Encounter Summary ---
:1965 Author Organization [place] Address [address] [place] [address] Care Team Providers Name Role Phone Noreen Hills APRN LITHOGRAPHIC PLATE MAKER Unavailable [phone] Noreen Hills APRN LITHOGRAPHIC PLATE MAKER Primary Care Provider [phone] Kalyan Galvan Unavailable Unavailable Lashae Trevino [facility] Unavailable [phone] Reason for Visit Diagnostic Imaging XR (Routine) - Closed Specialty Diagnoses / Procedures Referred By Contact Refer red To Contact Diagnoses Pain of right thumb Ramin Romero MD Procedures XR Finger Right G/E 2 Views [address] [phone] Referral ID Status Reason Start Date Expiration Date Visits Requ ested Visits Authorized [id number] Closed 01/02/2020 01/01/2021 1 1 Encounter Details Date Type Department Care Team Description 01/02/2020 Ancillary Procedure [facility] Ramin Romero Pai n of right thumb Clinic [place] SALDANA [address] [place] [address] [place] [address] [address] [place] [address] [place] [address] Social History Tobacco Use Types Packs/Day [...] How often do you attend yazdanism or oriental orthodox Patient refused 08/08/2019 services? Do you belong to any clubs or organizations such as No 08/08/2019 yazdanism groups, [employer], [employer] or athletic groups, or school groups? How [...] Depression Total Score: 9 08/09/2019 7:03 AM PEDIATRIC DENTIST documented as of this encounter Care Teams Veneer Manufacturer Relationship Specialty Start Date End Date Noreen Hills PCP - General Nurse Practitioner 01/09/19 12/12/21 SEAN Haley LITHOGRAPHIC PLATE MAKER [address] [facility] [address] [place], [place] [phone] Noreen Hills Assigned PCP 06/16/18 SEAN Haley LITHOGRAPHIC PLATE MAKER 3305 [facility] [place] [phone] Kalyan Galvan Personal Advocate & 08/08/19 Liaison (PAL) Lashae Trevino Pharmacist Pharmacist 10/14/19 12/01/20 Kiran, [facility] [address] [facility] [address] [place], [place] [phone] documented as of this encounter
--- OUTSIDE RECORDS SUMMARY | 2022-01-17 22:30 | XMS_ITS | Encounter Summary ---
:1965 Author Organization [place] Address [address] [place] [address] Care Team Providers Name Role Phone Noreen Hills APRN EMTS Unavailable [phone] Noreen Hills APRN EMTS Primary Care Provider [phone] Kalyan Galvan Unavailable Unavailable Lashae Trevino [facility] Unavailable [phone] Encounter Details Date Type Department Care [...] How often do you attend scientology or gnosticist Patient refused 08/08/2019 services? Do [...] Depression Total Score: 9 08/09/2019 7:03 AM SAS DEVELOPER documented as of this encounter Care Teams Activity Therapy Specialist Relationship Specialty Start Date End Date Noreen Hills PCP - General Nurse Practitioner 01/09/19 12/12/21 SEAN Haley EMTS [address] [facility] [address] [place], [place] [address] Noreen Hills PCP 06/16/18 SEAN Haley EMTS [address] [place] [address] Kalyan Galvan Personal Advocate & 08/08/19 Liaison (PAL) Lashae Trevino Pharmacist Pharmacist 10/14/19 12/01/20 [facility] [address] [facility] [address] [place], [place] [address] documented as of this encounter
--- OUTSIDE RECORDS SUMMARY | 2022-01-17 22:30 | XMS_ITS | Encounter Summary ---
:1965 Author Organization [place] Address [address] [place] [address] Care Team Providers Name Role Phone Noreen Hills APRN FISH HATCHERY SUPERVISOR Unavailable [phone] Noreen iHlls APRN FISH HATCHERY SUPERVISOR Primary Care Provider [phone] Kalyan Galvan Unavailable Unavailable Lashae Trevino [facility] Unavailable [phone] Encounter Details Date Type Department Care [...] How often do you attend methodist or hinduism Patient refused 08/08/2019 services? Do [...] Depression Total Score: 9 08/09/2019 7:03 AM BUNG SEWER documented as of this encounter Care Teams Clinical Pharmacy Coordinator Relationship Specialty Start Date End Date Noreen Hills PCP - General Nurse Practitioner 01/09/19 12/12/21 SEAN Haley FISH HATCHERY SUPERVISOR [address] [facility] [address] [place], [place] [address] Noreen Hills PCP 06/16/18 SEAN Haley FISH HATCHERY SUPERVISOR [address] [place] [address] Kalyan Galvan Personal Advocate & 08/08/19 Liaison (PAL) Lashae Trevino Pharmacist Pharmacist 10/14/19 12/01/20 [facility] [address] [facility] [address] [place], [place] [address] documented as of this encounter
--- OUTSIDE RECORDS SUMMARY | 2022-01-17 22:30 | XMS_ITS | Encounter Summary ---
:1965 Author Organization [place] Address [address] [place] [address] Care Team Providers Name Role Phone Noreen Hills APRN HOTBED LEVER OPERATOR Unavailable [phone] Noreen Hills APRN HOTBED LEVER OPERATOR Primary Care Provider [phone] Kalyan Galvan Unavailable Unavailable Lashae Trevino [facility] Unavailable [phone] Encounter Details Date Type Department Care [...] often do you attend roman catholic or worship Patient refused 08/08/2019 services? Do [...] Depression Total Score: 9 08/09/2019 7:03 AM VOICE TEACHER documented as of this encounter Care Teams Inorganic Chemistry Professor Relationship Specialty Start Date End Date Noreen Hills PCP - General Nurse Practitioner 01/09/19 12/12/21 SEAN Haley HOTBED LEVER OPERATOR [address] [place], [place] [address] Noreen Hills PCP 06/16/18 SEAN Haley HOTBED LEVER OPERATOR [address] [place] [address] Kalyan Galvan Personal Advocate & 08/08/19 Liaison (PAL) Lashae Trevino Pharmacist Pharmacist 10/14/19 12/01/20 [facility] [address] [place], [place] [address] documented as of this encounter
--- OUTSIDE RECORDS SUMMARY | 2022-01-17 22:30 | XMS_ITS | Encounter Summary ---
:1965 Author Organization [place] Address [address] [place] [address] Care Team Providers Name Role Phone Noreen Hills APRN MINT WAFER DEPOSITOR Unavailable [phone] Noreen Hills APRN MINT WAFER DEPOSITOR Primary Care Provider [phone] Kalyan Galvan Unavailable Unavailable Lashae Trevino [facility] Unavailable [phone] Reason for Visit Reason Onset Date Comments Recheck Medication 10/28/2019 Cyclobenzaprine Encounter Details Date Type Department Care Team Description 10/28/2019 Virtual Visit [facility] Noreen Hills Dry mouth (Primary Dx); Clinic [place] H[place] APRN Pain of left lower leg; [address] [facility] Migraine without status migrainosus, not intractable, unspecified migraine type; [address] [facility] Type 2 diabetes mellitus wit h complication, without long-term current use of insulin (H) [address] [facility] [place] [address] [place] [id number] Social History Tobacco Use Types Packs/Day Years [...] How often do you attend adventism or worship Patient refused 08/08/2019 services? Do you belong to any clubs or organizations such as No 08/08/2019 adventism groups, [employer], fragoviral or athletic groups, or school groups? How [...] this encounter Progress Notes Noreen Hills, SEAN MINT WAFER DEPOSITOR - 10/28/2019 11:30 AM CDT Megan Choi [...] would you like to be contacted at? [phone] How would you like to obtain your [...] called her but they were cut off. (G40.666) Migraine without status migrainosus, not intractable, unspecified [...] 6.1 (H) 0 - 5.6 % 01/13/2020 [place] 9:27 AM CDT [facility] Comment: Normal <5.7% Prediabetes 5.7-6.4% ??Diab etes 6.5% or higher - adopted from ADA consensus guidelines. Specimen Anatomical Collection Method Collection Time Receive d Time (Source) Location / / Volume Laterality Blood specimen 01/13/2020 8:55 AM 020 8:56 (specimen) CDT AM CDT Noreen Hills APRN, CNP LAB - BLOOD ORDERABLES Performing Organization Address City/State/ZIP Code Phon e Number [address] [place] [address] documented in this encounter Visit Diagnoses Diagnosis [...] Depression Total Score: 9 08/09/2019 7:03 AM WATCH REPAIRER APPRENTICE documented as of this encounter Care Teams Liberal Arts Dean Relationship Specialty Start Date End Date Noreen Hills PCP - General Nurse Practitioner 01/09/19 12/12/21 SEAN Haley CNP [address] [facility] [place] [address] Noreen Hills Assigned PCP 06/16/18 SEAN Haley CNP [address] [facility] [place] [address] Kalyan Galvan Personal Advocate & 08/08/19 Liaison (PAL) Lashae Trevino Pharmacist Pharmacist 10/14/19 12/01/20 [facility] [address] [facility] [place] [id number] documented as of this encounter
--- OUTSIDE RECORDS SUMMARY | 2022-01-17 22:30 | XMS_ITS | Encounter Summary ---
:1965 Author Organization [place] Address [address] [place] [address] Care Team Providers Name Role Phone Noreen Hills APRN GILL BOX TENDER Unavailable [phone] Noreen Hills APRN GILL BOX TENDER Primary Care Provider [phone] Kalyan Galvan Unavailable Unavailable Lashae Trevino [facility] Unavailable [phone] Encounter Details Date Type Department Care [...] How often do you attend zoroastrian or pentecostalism Patient refused 08/08/2019 services? Do [...] Depression Total Score: 9 08/09/2019 7:03 AM PROJECT ADMINISTRATIVE ASSISTANT documented as of this encounter Care Teams Cut Off Saw Set Up Operator Relationship Specialty Start Date End Date Noreen Hills PCP - General Nurse Practitioner 01/09/19 12/12/21 SEAN Haley GILL BOX TENDER [address] [facility] [address] [place], [place] [address] Noreen Hills PCP 06/16/18 SEAN Haley GILL BOX TENDER [address] [facility] [place] [address] Kalyan Galvan Personal Advocate & 08/08/19 Liaison (PAL) Lashae Trevino Pharmacist Pharmacist 10/14/19 12/01/20 [facility] [address] [facility] [address] [place], [place] [address] documented as of this encounter
--- OUTSIDE RECORDS SUMMARY | 2022-01-17 22:30 | XMS_ITS | Encounter Summary ---
:1965 Author Organization [facility] Address [address] [place] [address] Care Team Providers Name Role Phone Noreen Hills APRN SPACE SCIENCES DIRECTOR Unavailable [phone] Noreen Hills APRN SPACE SCIENCES DIRECTOR Primary Care Provider [phone] Kalyan Galvan Unavailable Unavailable Encounter Details Date Type Department Care Team Description 10/03/2019 Telephone [facility] Lashae Trevino [place] [facility] [address] [place] [address] [address] [place] [address] [phone] Social History Tobacco Use Types Packs/Day Years [...] How often do you attend alevism or sikh Patient refused 08/08/2019 services? Do [...] encounter Miscellaneous Notes Telephone Encounter - Lashae Trevino, [facility] - 10/06/2019 3:17 PM CDT Received call back earlier today, pt request call back after 3pm today. No answer, LVM to call clinic back to schedule MTM visit, referral per PCP. Lashae Trevino, PharmD Medication Therapy Management Pharmacist Pager#: [phone] Telephone Encounter - Edel Mosqueda CMA - 10/03/2019 8:31 AM CDT LVM to call back for consent. Edel Mosqueda MA documented in this encounter Plan of Treatment Not on filedocumented as of this encounter Visit Diagnoses Not on filedocumented in this encounter Additional Health Concerns Assessment Noted Time PHQ-9 Depression Total Score: 9 08/09/2019 7:03 AM PASSENGER LOCOMOTIVE ENGINEER documented as of this encounter Care Teams Technical Instructor Relationship Specialty Start Date End Date Noreen Hills PCP - General Nurse Practitioner 01/09/19 12/12/21 SEAN Haley SPACE SCIENCES DIRECTOR [address] [facility] [place] [address] Noreen Hills Assigned PCP 06/16/18 SEAN Haley SPACE SCIENCES DIRECTOR [address] [facility] [place] [address] Kalyan Galvan Personal Advocate & 08/08/19 Liaison (PAL) documented as of this encounter
--- OUTSIDE RECORDS SUMMARY | 2022-01-17 22:30 | XMS_ITS | Encounter Summary ---
:1965 Author Organization [facility] Address [address] [place] [address] Care Team Providers Name Role Phone Noreen Hills APRN MGMT ANALYST Unavailable [phone] Noreen Hills APRN MGMT ANALYST Primary Care Provider [phone] Kalyan Galvan Unavailable Unavailable Lashae Trevino [facility] Unavailable [phone] Encounter Details Date Type Department Care Team Description 10/21/2019 Travel Social History Tobacco Use Types Packs/Day [...] How often do you attend shinto or restoration Patient refused 08/08/2019 services? Do [...] Depression Total Score: 9 08/09/2019 7:03 AM LD TEACHER documented as of this encounter Care Teams Beet Worker Relationship Specialty Start Date End Date Noreen Hills PCP - General Nurse Practitioner 01/09/19 12/12/21 SEAN Haley MGMT ANALYST [address] [facility] [address] [place], [place] [address] Noreen Hills PCP 06/16/18 SEAN Haley MGMT ANALYST [address] [place] [address] Kalyan Galvan Personal Advocate & 08/08/19 Liaison (PAL) Lashae Trevino Pharmacist Pharmacist 10/14/19 12/01/[facility] [address] [facility] [address] [place], [place] [address] documented as of this encounter
--- OUTSIDE RECORDS SUMMARY | 2022-01-17 22:30 | XMS_ITS | Encounter Summary ---
:1965 Author Organization [facility] Address [address] [place] [address] Care Team Providers Name Role Phone Noreen Hills APRN JAVA PERFORMANCE ENGINEER Unavailable [phone] Noreen Hills APRN JAVA PERFORMANCE ENGINEER Primary Care Provider [phone] Kalyan Galvan Unavailable Unavailable Lashae Trevino [facility] Unavailable [phone] Encounter Details Date Type Department Care [...] How often do you attend mormonism or pentecostalism Patient refused 08/08/2019 services? Do [...] Depression Total Score: 9 08/09/2019 7:03 AM RETURNED TELEPHONE EQUIPMENT APPRAISER documented as of this encounter Care Teams Geomagnetician Relationship Specialty Start Date End Date Noreen Hills PCP - General Nurse Practitioner 01/09/19 12/12/21 SEAN Haley JAVA PERFORMANCE ENGINEER [address] [facility] [address] [place], [place] [address] Noreen Hills PCP 06/16/18 SEAN Haley JAVA PERFORMANCE ENGINEER [address] [place] [address] Kalyan Galvan Personal Advocate & 08/08/19 Liaison (PAL) Lashae Trevino Pharmacist Pharmacist 10/14/19 12/01/20 [facility] [address] [facility] [address] [place], [place] [address] documented as of this encounter
--- OUTSIDE RECORDS SUMMARY | 2022-01-17 22:30 | XMS_ITS | Encounter Summary ---
:1965 Author Organization [facility] Address [address] [place] [address] Care Team Providers Name Role Phone Noreen Hills APRN REST ROOM MATRON Unavailable [phone] Noreen Hills APRN REST ROOM MATRON Primary Care Provider [phone] Kalyan Galvan Unavailable Unavailable Lashae Trevino [facility] Unavailable [phone] Reason for Referral Consultation (Routine) - Closed Specialty Diagnoses / Procedures Referred By Contact Refer red To Contact Diagnoses Pain of right thumb Ramin Romero MD [address] [facility] 06 11 [place], [place] [phone] Referral ID Status Reason Start Date Expiration Date Visits Requ ested Visits Authorized [id number] Closed 01/02/2020 01/01/2021 1 1 iagnostic Imaging XR (Routine) - Closed Specialty Diagnoses / Procedures Referred By Contact Refer red To Contact Diagnoses Pain of right thumb Ramin Romero MD Procedures XR Finger Right G/E 2 Views [address] [facility] [place], [place] [phone] Referral ID Status Reason Start Date Expiration Date Visits Requ ested Visits Authorized [id number] Closed 01/02/2020 01/01/2021 1 1 Reason for Visit Reason Comments Urgent Care Thumb Discomfort thumb pain that started 2 we eks ago- popping in and out of joint- thumb brace isnt helping Encounter Details Date Type Department Care Team Description [facility] of right [facility] [place] 2019 E (Primary Dx) [address] [address] [place] [address] Social History Tobacco Use Types Packs/Day [...] How often do you attend jew or yazidi Patient refused 08/08/2019 services? Do [...] thumb for now. follow up with an collateral specialist for further evaluation and treatment. documented [...] ??? fluticasone (FLONASE) 50 MCG/ACT nasal spray [place] 1-2 sprays into both nostrils daily 16 [...] right thumb a lot while working at [employer]. ROS: CONSTITUTIONAL:NEGATIVE for fever INTEGUMENTARY/SKIN: negative [...] at a ligament. PLAN: follow up with collateral specialist. I ordered an collateral specialist referral. Continue wearing the right thumb splint Place ice onto the right thumb Rest the right thumb as much as possible. Ramin Romero MD documented in this encounter Plan of Treatment Scheduled Referrals Name Type Priority Associated Diagnoses Order S chedule Orthopedic & Spine Referral Routine Pain of right thumb Ex pected: 01/09/2020 Brass Cleaner Referral (Approxim ate), Expires: 2019 documented as [...] Depression Total Score: 9 08/09/2019 7:03 AM ENVELOPE SEALER OPERATOR documented as of this encounter Care Teams Novelty Twister Operator Relationship Specialty Start Date End Date Noreen Hills PCP - General Nurse Practitioner 01/09/19 12/12/21 SEAN Haley REST ROOM MATRON [address] [facility] [place] [id number] Noreen Hills Assigned PCP 06/16/18 SEAN Haley REST ROOM MATRON [address] [facility] [place] [address] Kalyan Galvan Personal Advocate & 08/08/19 Liaison (PAL) Lashae Trevino Pharmacist Pharmacist 10/14/19 12/01/20 Kiran, [facility] [address] [facility] [place] [id number] documented as of this encounter
--- OUTSIDE RECORDS SUMMARY | 2022-01-17 22:30 | XMS_ITS | Encounter Summary ---
:1965 Author Organization [facility] Address [address] [place] [address] Care Team Providers Name Role Phone Noreen Hills APRN ELECTRICAL DESIGN TECHNICIAN Unavailable [phone] Noreen Hills APRN ELECTRICAL DESIGN TECHNICIAN Primary Care Provider [phone] Kalyan Galvan Unavailable Unavailable Lashae Trevino [facility] Unavailable [phone] Reason for Visit Reason Onset Date Comments Follow Up 11/11/2019 er follow up Encounter Details Date Type Department Care Team Description 11/11/2019 Virtual Visit [facility] Kleber Lima MD Hyperlipidemia LDL goal <100 (Primary Dx ); Clinic [address] Type 2 diabetes mellitus wit h complication, without long-term current use of insulin (H) [address] [facility] [address] [place] [address] [address] [place] [address] (Work) [phone] Social History Tobacco Use Types Packs/Day Years [...] How often do you attend mormon or sikh Patient refused 08/08/2019 services? Do [...] would you like to be contacted at? [phone] How would you like to obtain your AVS? MyChart Subjective Megan Choi is a 54 year old female who presents via phone visit today for the following health issues: HPI ED/UC Followup: Facility: [facility] Emergency Department Date of visit: 11/06/2019 Reason [...] disease YES- multiple family member have had RI Tobacco use: no ?? Precipitating factors: Worse with exertion: YES- felt funny at work, chest started to hurt at work Worse with deep breaths : YES Related to food: no ?? Alleviating factors: Ibuprofen. Therapies Tried and outcome: ibuprofen Patient Active Problem List Diagnosis ??? Migraine headache ??? GERD (gastroesophageal reflux disease) ??? Family history of RI (myocardial infarction) ??? Persistent insomnia ??? Type [...] ??? fluticasone (FLONASE) 50 MCG/ACT nasal spray [place] 1-2 sprays into both nostrils daily 16 [...] in mood or affect Objective Reported vitals: [facility] 10/30/2011 healthy, alert and no distress PSYCH: [...] Depression Total Score: 9 08/09/2019 7:03 AM APPELLATE LAW CLERK documented as of this encounter Care Teams Manager Ship Relationship Specialty Start Date End Date Noreen Hills PCP - General Nurse Practitioner 01/09/19 12/12/21 SEAN Haley ELECTRICAL DESIGN TECHNICIAN [address] [facility] [place] [address] Noreen Hills Assigned PCP 06/16/18 SEAN Haley ELECTRICAL DESIGN TECHNICIAN [address] [facility] [place] [address] Kalyan Galvan Personal Advocate & 08/08/19 Liaison (PAL) Lashae Trevino Pharmacist Pharmacist 10/14/19 12/01/[address] [facility] [address] [place] [address] [place] [address] documented as of this encounter
--- OUTSIDE RECORDS SUMMARY | 2022-01-17 22:30 | XMS_ITS | Encounter Summary ---
:1965 Author Organization [facility] Address [address] [place] [address] Care Team Providers Name Role Phone Noreen Hills APRN, CNP Unavailable [phone] Noreen Hills APRN, CNP Primary Care Provider Kalyan Galvan Unavailable Unavailable Reason for Visit Reason Onset Date Comments Pain 10/07/2019 left leg pain Consultation (Routine) - Closed Specialty Diagnoses / Procedures Referred By Contact Refer red To Contact Orthopedics and Sports Diagnoses Pain of left lower leg Noreen Hills [facility] SEAN Haley CNP [facility] [address] [place] [address]?? [facility] [address] [place] [address] [address] [place] [address] Phone: Fax: Referral ID Status Reason Start Date Expiration Date Visits Requ ested Visits Authorized [id number] Closed 09/30/2019 09/29/2020 1 1 Encounter Details Date Type Department Care Team Description 10/07/2019 Virtual Visit [facility] Noreen Hills APRN TISSUE RECOVERY TECHNICIAN [address] [place] [address] [place] [id number] Pain of left lower [facility] Rodrigo Man PA-C [address] [address] leg Clinic [address] [address] Social History Tobacco Use Types [...] How often do you attend christianity or hindu Patient refused 08/08/2019 services? Do [...] ??? fluticasone (FLONASE) 50 MCG/ACT nasal spray, [place] 1-2 sprays into both nostrils daily, Disp: [...] Depression Total Score: 9 08/09/2019 7:03 AM WAREHOUSE FOREMAN documented as of this encounter Care Teams Yarn Examiner Relationship Specialty Start Date End Date Noreen Hills PCP - General Nurse Practitioner 01/09/19 12/12/21 SEAN Haley TISSUE RECOVERY TECHNICIAN [address] [facility] [place] [address] Noreen Hills Assigned PCP 06/16/18 SEAN Haley TISSUE RECOVERY TECHNICIAN [address] [facility] [place] [address] Kalyan Galvan Personal Advocate & 08/08/19 Liaison (PAL) documented as of this encounter
--- OUTSIDE RECORDS SUMMARY | 2022-01-17 22:30 | XMS_ITS | Encounter Summary ---
:1965 Author Organization [place] Address [address] [place] [address] Care Team Providers Name Role Phone Pankaj Woods APRN MAINTENANCE MECHANIC TELEPHONE Unavailable [phone] Pankaj Woods APRN MAINTENANCE MECHANIC TELEPHONE Primary Care Provider [phone] Kalyan Galvan Unavailable Unavailable Lashae Trevino [facility] Unavailable [phone] Reason for Visit (Routine) - Closed Specialty Diagnoses / Procedures Referred By Contact Refer red To Contact Cardiology Diagnoses NO BB Rh Cardiac Services Procedures ECHO STRESS TEST [address] [place], [place] [address] Phone: Referral ID Status Reason Start Date Expiration Date Visits Requ ested Visits Authorized [id number] Closed 12/16/2019 12/15/2020 1 1 Encounter Details Date Type Department Care Team Description 12/16/2019 Hospital Encounter [facility] Kera Tripp, Chest pain, unspecified type; [facility] Family history of HI (myocardial infarct ion) [facility] [address] [facility] [place], [place] [address] [address] [place], [place] [phone] [address] Social History Tobacco Use Types Packs/Day [...] How often do you attend mandaen or scientologist Patient refused 08/08/2019 services? Do you belong to any clubs or organizations such as No 08/08/2019 mandaen groups, [employer], fraCerona [employer] or athletic groups, or school groups? How [...] goal < 7% (H) fluticasone (FLONASE) 50 [place] 1-2 sprays 16 g 11 08/08 MCG/ACT [...] procedure are in CONTRAST Family history of HI the res ults (myocardial section. infarction) documented in this encounter Results ECHO EXERCISE STRESS TEST WITH CONTRAST (12/16/2019 9:43 AM CDT) Anatomical Region Laterality Modality Echocardiography Specimen (Source) Anatomical Collection Method Collection Time Re ceived Time Location / / Volume Laterality 12/16/2019 9:06 AM CDT Narrative 12/16/2019 12:34 PM CDT [id number]^KERA^[facility] Echocardiography Laboratory [address] [place] [address] Name: MEGAN CHOI : 1965 Study Date: 12/16/2019 09:06 AM Age: 54 yrs Gender: Female Patient Location: [facility] Reason For Study: Chest pain, unspecifie d type, Family history of HI (myocardial i History: Diabetes, Family Hx, Hyperlipid [...] note might be different from the original. [id number]^[email or web address]^KERA^[facility] Echocardiography Laboratory [address] [place] [address] Name: MEGAN CHOI : 1965 Study Date: 12/16/2019 09:06 AM Age: 54 yrs Gender: Female Patient Location: [facility] Reason For Study: Chest pain, unspecifie d type, Family history of HI (myocardial i History: Diabetes, Family Hx, Hyperlipid [...] Chest pain, unspecified type Family history of HI (myocardial infarct ion) Family history of ischemic [...] On Sun12/16/19 at 0945, For 1 dose, [facility] [id number] sodium chloride (PF) 0.9% PF flush 10 mL Given 12/16/2019 9:44 AM CDT 10 mLs 10 mL, Intracatheter, ONCE, On Sun12/16/19 at 0945, For 1 dose documented in this encounter Additional Health Concerns Assessment Noted Time PHQ-9 Depression Total Score: 9 08/09/2019 7:03 AM TUBE MACHINE OPERATOR documented as of this encounter Care Teams Plate Gauger Relationship Specialty Start Date End Date Pankaj Woods PCP - General Nurse Practitioner 01/09/19 12/12/21 SEAN Haley MAINTENANCE MECHANIC TELEPHONE [address] [facility] [place] [phone] Pankaj Woods Assigned PCP 06/16/18 SEAN Haley MAINTENANCE MECHANIC TELEPHONE [address] [facility] [place] [phone] Kalyan Galvan Personal Advocate & 08/08/19 Liaison (PAL) Lashae Trevino Pharmacist Pharmacist 10/14/19 12/01/20 Kiran [facility] [address] [place] [id number] documented as of this encounter
--- OUTSIDE RECORDS SUMMARY | 2022-01-17 22:30 | XMS_ITS | Encounter Summary ---
:1965 Author Organization [place] Address [address] [place] [address] Care Team Providers Name Role Phone Noreen Hills APRN PORCELAIN TECHNICIAN Unavailable [phone] Noreen Hills APRN, CNP Primary Care Provider [phone] Kalyan Galvan Unavailable Unavailable Reason for Visit Reason Onset Date Comments Referral 10/02/2019 MTM Encounter Details Date Type Department Care Team Description 10/02/2019 Telephone [facility] Noreen Hills, Referral (MTM) [place] PORCELAIN TECHNICIAN [address] [facility] [address] [facility] [address] [place] [address] [place] [address] [phone] Social History Tobacco Use Types Packs/Day Years [...] Telephone Encounter - Edel Mosqueda, WYATT - 10/03/2019 2:40 PM CDT LVM to call back. Edel Mosqueda MA Telephone Encounter - Wayne Pickens - 10/02/2019 1:46 PM CDT MTM referral from: [facility] visit (referral by provider) MTM referral outreach attempt #2 on October 02, 2019 at 1:47 PM Outcome: Patient not reachable after several attempts, will route to [facility] Pharmacist/Provider as an FYI. Thank you for the referral. See LISSA Pickens Digital Commentator documented in this encounter Plan of Treatment Not on filedocumented as of this encounter Visit Diagnoses Not on filedocumented in this encounter Additional Health Concerns Assessment Noted Time PHQ-9 Depression Total Score: 9 08/09/2019 7:03 AM RN NEW GRADUATE documented as of this encounter Care Teams Utility Agent Relationship Specialty Start Date End Date Noreen Hills PCP - General Nurse Practitioner 01/09/19 12/12/21 SEAN Haley PORCELAIN TECHNICIAN [address] [facility] [place] [address] Noreen Hills Assigned PCP 06/16/18 SEAN Haley PORCELAIN TECHNICIAN [address] [facility] [place] [address] Kalyan Galvan Personal Advocate & 08/08/19 Liaison (PAL) documented as of this encounter
--- OUTSIDE RECORDS SUMMARY | 2022-01-17 22:30 | XMS_ITS | Encounter Summary ---
:1965 Author Organization [place] Address [address] [place] [address] Care Team Providers Name Role Phone Noreen Hills APRN IRON ASSORTER Unavailable [phone] Noreen Hills APRN IRON ASSORTER Primary Care Provider [phone] Kalyan Galvan Unavailable Unavailable Lashae Trevino [facility] Unavailable [phone] Reason for Visit Reason Onset Date Comments Appointment 11/07/2019 Encounter Details Date Type Department Care Team Description 11/07/2019 Telephone [facility] Marilin Marshall NP Appointment [place] [address] [facility] 3305 [facility] [place] [address] [address] [place] [address] [phone] Social History Tobacco Use Types Packs/Day Years [...] How often do you attend nondenominational or yarsanism Patient refused 08/08/2019 services? Do [...] at 7:49 AM Telephone Encounter - Tatiana Marhsall NP - 11/07/2019 12:59 PM CDT Would [...] Depression Total Score: 9 08/09/2019 7:03 AM REHABILITATION CLERK documented as of this encounter Care Teams Job Foreman Relationship Specialty Start Date End Date Noreen Hills PCP - General Nurse Practitioner 01/09/19 12/12/21 SEAN Haley IRON ASSORTER [address] [facility] [place] [address] Noreen Hills Assigned PCP 06/16/18 SEAN Haley IRON ASSORTER [address] [facility] [place] [address] Kalyan Galvan Personal Advocate & 08/08/19 Liaison (PAL) Lashae Trevino Pharmacist Pharmacist 10/14/19 12/01/20 Kiran, [facility] [address] [place] [address] documented as of this encounter
--- OUTSIDE RECORDS SUMMARY | 2022-01-17 22:30 | XMS_ITS | Encounter Summary ---
:1965 Author Organization [place] Address [address] [place] [address] Care Team Providers Name Role Phone Pankaj Hills APRN DISTILLERY WORKER GENERAL Unavailable [phone] Pankaj Hills APRN DISTILLERY WORKER GENERAL Primary Care Provider [phone] Kalyan Galvan Unavailable Unavailable Lashae Trevino [facility] Unavailable [phone] Reason for Visit Reason Comments Chest Pain Encounter Details Date Type Department Care Team Description 11/06/2019 Emergency [facility] Kera Bernard MD Chest pain, unspecified type; [facility] Emergency Dep t EMERGENCY PHYSICIANS Family history of DC (myocar dial infarction) [address] [place], [place] [address] [facility] [address] [place], [place] [id number] (Wo rk) Social History Tobacco Use Types [...] How often do you attend buddhist or advent Patient refused 08/08/2019 services? Do [...] through Care Everywhere. Chest Pain, Uncertain Cause (Indian)documented in this encounter Medications at Time of Discharge Medication Sig Dispensed Refills Start Date End Date JAY/ARB NOT PRESCRIBED, 1 each daily JYA & 0 04/11 INTENTIONAL,Indications: ARB not prescribed [...] goal < 7% (H) fluticasone (FLONASE) 50 [place] 1-2 sprays 16 g 11 08/08 MCG/ACT [...] T&A Left peritoneal tendon repair Family History: DC age 71, type 2 DM, HTN, lipids, osteoarthritis, kidney disease: mother DC s/p CABG, HTN, diabetes, lipids: father Lipids, [...] Chest pain Time: 18:19:30 Rate 70 bpm. PA interval 174. QRS duration 96. QT/QTc 394/425. [...] GERD (gastroesophageal reflux disease); Family history of DC (myocardial infarction); Persistent insomnia; Type 2 diabetes [...] Echo Stress Echocardiogram 2. Family history of DC (myocardial infarction) Z82.49 Echo Stress Echocardiogram Disposition: Discharged home Kallie Garcia 11/06/2019 [facility] Scribe Disclosure: I, Kallie Garcia, [...] AM CDT Narrative 12/16/2019 12:34 PM CDT [id number]^QASIM^KERA^S [facility] Echocardiography Laboratory [address] [place] [address] Name: MEGAN WONG : 1965 Study Date: 12/16/2019 09:06 AM Age: 54 yrs Gender: Female Patient Location: [facility] Reason For Study: Chest pain, unspecifie d type, Family history of DC (myocardial i History: Diabetes, Family Hx, Hyperlipid [...] note might be different from the original. [id number] [facility] [id number]^QASIM^KERA^[facility] Echocardiography Laboratory [address] [place] [address] Name: MEGAN WONG : 1965 Study Date: 12/16/2019 09:06 AM Age: 54 yrs Gender: Female Patient Location: [facility] Reason For Study: Chest pain, unspecifie d type, Family history of DC (myocardial i History: Diabetes, Family Hx, Hyperlipid [...] CDT EXAM: XR CHEST 2 VW LOCATION: [facility] DATE/TIME: 11/06/2019 7:58 PM INDICATION: Chest pain COMPARISON: None. Procedure Note Zachary Pardo MD - 11/06/2019Formatt ing of this note might be different from the original. EXAM: XR CHEST 2 VW LOCATION: [facility] DATE/TIME: 11/06/2019 7:58 PM INDICATION: Chest pain COMPARISON: None. IMPRESSION: Negative chest. Postsurgical change in the lower cervical spine. Kera Bernard MD IMG DIAGNOSTIC IMAGING ORDER ILDEFONSO (ABNORMAL) Lipase (11/06/2019 6:28 PM CDT) athologist Signature Lipase 66 (L) 73 - 393 11/06/2019 [facility] U/L 7:36 PM CDT HOSPITAL Specimen Anatomical Collection Method Collection Time Receive d Time (Source) Location / / Volume Laterality 11/06/2019 6:28 PM 0 6:35 CDT PM CDT Kera Bernard MD LAB - BLOOD ORDERABLES Performing Organization Address [facility] Phon e [place] [phone] [place] [phone] D dimer quantitative (11/06/2019 6:28 PM CDT) athologist Signature D Dimer 0.5 0.0 - 0.50 11/06/2019 [facility] ug/ml FEU 7:40 PM CDT HOSPITAL Comment: [...] BLOOD ORDERABLES Performing Organization Address [facility] Phon e Number [facility] [address] [place] [address] [facility] [address] [place], [place] [address] 7[facility] [phone] (ABNORMAL) Hepatic panel (11/06/2019 6:28 PM CDT) Analysis Performed At Patho logist Time Signature Bilirubin Direct <0.1 0.0 - 0.2 11/06/2019 [place] mg/dL 7:[address] [facility] Bilirubin Total 0.3 0.2 - 1.3 11/06/2019 [place] mg/dL 7:[address] [facility] Albumin 3.7 3.4 - 5.0 11/06/2019 [place] g/dL 7:45 PM [facility] Protein Total 7.8 6.8 - 8.8 11/06/2019 [place] g/dL 7:45 PM [facility] Alkaline 157 (H) 40 - 150 11/06/2019 [place] Phosphatase U/L 7:45 PM [facility] ALT 36 0 - 50 U/L 11/06/2019 [place] 7:45 PM [facility] AST 21 0 - 45 U/L 11/06/2019 [place] 7:45 PM [facility] Specimen Anatomical Collection Method Collection Time Receive d Time (Source) Location / / Volume Laterality 11/06/2019 6:28 PM 0 6:35 CDT PM CDT Kera Bernard MD LAB - BLOOD ORDERABLES Performing Organization Address City/State/ZIP Code Phon e Number M [facility] [address] [place] [address] [phone] [facility] [address] [place] [address], U [phone] Troponin I (now) (11/06/2019 6:28 PM CDT) P athologist Signature Troponin I ES <0.015 0.000 - 11/06/2019 [place] 0.045 ug/L 7:00 PM T [facility] Comment: The 99th percentile for upper reference [...] Address City/State/ZIP Code Phon e Number [place] [address] [address] [place], [place] [address] [facility] [address] [place], [place] [address] [phone] (ABNORMAL) Basic metabolic panel (BMP) (11/06/2019 6:28 PM CDT) athologist Signature Sodium 140 133 - 144 11/06/2019 [place] mmol/L 6:50 PM [facility] Potassium 3.5 3.4 - 5.3 11/06/2019 [place] mmol/L 6:50 PM [facility] Chloride 107 94 - 109 11/06/2019 [place] mmol/L 6:50 PM [facility] Carbon Dioxide 28 20 - 32 11/06/2019 [place] mmol/L 6:56 PM [facility] Anion Gap 5 3 - 14 11/06/2019 [place] mmol/L 6:56 PM [facility] Glucose 129 (H) 70 - 99 11/06/2019 [place] mg/dL 6:56 PM [facility] Urea Nitrogen 17 7 - 30 11/06/2019 [place] mg/dL 6:56 PM [facility] Creatinine 0.82 0.52 - 11/06/2019 [place] 1.04 mg/dL 6:56 PM [facility] GFR Estimate 80 >60 11/06/2019 [place] mL/min/{1. 6:56 PM [facility] 73_m2} HOSPITAL Comment: Non GFR Calc Starting 05/28/2018, serum creatinine ba sed estimated GFR (eGFR) will be calculated using the Chronic Kidney Dise ase Epidemiology Collaboration (CKD-EPI) equation. GFR Estimate If >90 >60 mL/min/{1.73_m2} 11/06/2019 6: 56 PM [facility] Comment: GFR Calc Starting 05/28/2018, serum creatinine ba sed estimated GFR (eGFR) will be calculated using the Chronic Kidney Dise ase Epidemiology Collaboration (CKD-EPI) equation. Calcium 9.1 8.5 - 10.1 mg/dL 11/06/2019 6:56 PM T [facility] Specimen Anatomical Collection Method Collection Time Receive d Time (Source) Location / / Volume Laterality Blood specimen 11/06/2019 6:28 PM 020 6:35 (specimen) CDT PM CDT Kera Bernard MD LAB - BLOOD ORDERABLES Performing Organization Address City/State/ZIP Code Phon e Number [place] [id number] [place] [address] [facility] [address] [place] [address], [facility] [phone] [address], [facility] CBC + differential (11/06/2019 6:28 PM CDT) [facility] gist Method Time Signature WBC 7.2 4.0 - 11/06/2019 [facility] 11.0 6:41 PM [facility] 10e9/L [facility] RBC Count 4.83 3.8 - 5.2 11/06/2019 [facility] 10e12/L 6:41 PM [facility] Hemoglobin 14.8 11.7 - 11/06/2019 [facility] 15.7 g/dL 6:41 PM [facility] Hematocrit 45.7 35.0 - 11/06/2019 [facility] 47.0 % 6:41 PM [facility] MCV 95 78 - 100 11/06/2019 [facility] fl 6:41 PM [facility] MCH 30.6 26.5 - 11/06/2019 [facility] 33.0 pg 6:41 PM [facility] MCHC 32.4 31.5 - 11/06/2019 [facility] 36.5 g/dL 6:41 PM [facility] RDW 12.6 10.0 - 11/06/2019 [facility] 15.0 % 6:41 PM [facility] Platelet Count 259 150 - 450 11/06/2019 [facility] 10e9/L 6:41 PM [facility] Diff Method Automated 11/06/2019 [facility] Method 6:41 PM [facility] % Neutrophils 42.4 % 11/06/2019 [facility] 6:41 PM [facility] % Lymphocytes 45.5 % 11/06/2019 [facility] 6:41 PM [facility] % Monocytes 9.2 % 11/06/2019 [facility] 6:41 PM [facility] % Eosinophils 1.7 % 11/06/2019 [facility] 6:41 PM [facility] % Basophils 1.1 % 11/06/2019 [facility] 6:41 PM [facility] % Immature 0.1 % 11/06/2019 [facility] Granulocytes 6:41 PM [facility] Nucleated RBCs 0 0 /100 11/06/2019 [facility] 6:41 PM [facility] Absolute 3.0 1.6 - 8.3 11/06/2019 [facility] Neutrophil 10e9/L 6:41 PM [facility] Absolute 3.3 0.8 - 5.3 11/06/2019 [facility] Lymphocytes 10e9/L 6:41 PM [facility] Absolute 0.7 0.0 - 1.3 11/06/2019 [facility] Monocytes 10e9/L 6:41 PM [facility] Absolute 0.1 0.0 - 0.7 11/06/2019 [facility] Eosinophils 10e9/L 6:41 PM [facility] Absolute 0.1 0.0 - 0.2 11/06/2019 [facility] Basophils 10e9/L 6:41 PM [facility] Abs Immature 0.0 0 - 0.4 11/06/2019 [facility] Granulocytes 10e9/L 6:41 PM [facility] Absolute 0.0 11/06/2019 [facility] Nucleated RBC 6:41 PM [facility] Specimen Anatomical Collection Method Collection Time Receive d Time (Source) Location / / Volume Laterality Blood specimen 11/06/2019 6:28 PM 020 6:35 (specimen) CDT CDT Kera Bernard MD LAB - BLOOD ORDERABLES Performing Organization Address City/State/ZIP Code Phon e Number M [facility] [address] [place], [place] [address] [facility] [address] [place], [place] [address] [phone] EKG 12 lead (11/06/2019 6:19 PM CDT) [facility] gist Method Time Signature Interpretation ECG [...] Chest pain, unspecified type Family history of DC (myocardial infarct ion) Family history of ischemic heart disease Chest pain, unspecified type Family history of DC (myocardial infarct ion) Family history of ischemic [...] Chica Alejandro, RERE) 30 mL, Oral, ONCE, [facility] 11/06/19 at 1916, For 1 dose documented in this encounter Additional Health Concerns Assessment Noted Time PHQ-9 Depression Total Score: 9 08/09/2019 7:03 AM VACUUM TESTER CANS documented as of this encounter Care Teams Commissary Officer Relationship Specialty Start Date End Date Pankaj Hills PCP - General Nurse Practitioner 01/09/19 12/12/21 SEAN Haley DISTILLERY WORKER GENERAL [address] [facility] [place] [address] Pankaj Hills Assigned PCP 06/16/18 SEAN Haley DISTILLERY WORKER GENERAL [address] [facility] [place] [address] Kalyan Galvan Personal Advocate & 08/08/19 Liaison (PAL) Lashae Trevino Pharmacist Pharmacist 10/14/19 12/01/20 Kiran [facility] [address] [facility] [place] [address] documented as of this encounter
--- OUTSIDE RECORDS SUMMARY | 2022-01-17 22:30 | XMS_ITS | Encounter Summary ---
:1965 Author Organization [place] Address [address] [place] [address] Care Team Providers Name Role Phone Noreen Hills APRN MUSEUM SERVICE SCHEDULER Unavailable [phone] Noreen Hills APRN MUSEUM SERVICE SCHEDULER Primary Care Provider [phone] Kalyan Galvan Unavailable Unavailable Lashae Trevino [facility] Unavailable [phone] Encounter Details Date Type Department Care [...] How often do you attend buddhism or jehovah's witness Patient refused 08/08/2019 services? [...] Depression Total Score: 9 08/09/2019 7:03 AM PIERCING MILL OPERATOR documented as of this encounter Care Teams Workers Compensation Claims Examiner Relationship Specialty Start Date End Date Noreen Hills PCP - General Nurse Practitioner 01/09/19 12/12/21 SEAN Haley MUSEUM SERVICE SCHEDULER [address] [facility] [address] [place], [place] [address] Noreen Hills Assigned PCP 06/16/18 SEAN Haley MUSEUM SERVICE SCHEDULER [address] [facility] [address] [place], [place] [address] Kalyan Galvan Personal Advocate & 08/08/19 Liaison (PAL) Lashae Trevino Pharmacist Pharmacist 10/14/19 [facility] [address] [facility] [address] [address] [place], [place] [address] documented as of this encounter
--- OUTSIDE RECORDS SUMMARY | 2022-01-17 22:30 | XMS_ITS | Encounter Summary ---
:1965 Author Organization [facility] Address [address] [place] [address] Care Team Providers Name Role Phone Noreen Hills APRN DIRECTOR ORACLE DATABASE Unavailable [phone] Noreen Hills APRN DIRECTOR ORACLE DATABASE Primary Care Provider [phone] Kalyan Galvan Unavailable Unavailable Lashae Trevino [facility] Unavailable [phone] Reason for Visit Reason Comments Sleep Problem STM Encounter Details Date Type Department Care Team Description 12/10/2019 Documentation Only [facility] Sleep Sleep Problem (STM) Center [address], [address] [place] [address] Social History Tobacco Use Types [...] How often do you attend druze or baptist Patient refused 08/08/2019 services? Do [...] Depression Total Score: 9 08/09/2019 7:03 AM ROVING TELLER documented as of this encounter Care Teams Transportation Services Representative Relationship Specialty Start Date End Date Noreen Hills PCP - General Nurse Practitioner 01/09/19 12/12/21 SEAN Haley DIRECTOR ORACLE DATABASE [address] [facility] [address] Noreen Hills Assigned PCP 06/16/18 SEAN Haley DIRECTOR ORACLE DATABASE [address] [facility] [place] [phone] Kalyan Galvan Personal Advocate & 08/08/19 Liaison (PAL) Lashae Trevino Pharmacist Pharmacist 10/14/19 12/01/20 Kiran, [facility] [address] [facility] [address] [place] [id number] documented as of this encounter
--- OUTSIDE RECORDS SUMMARY | 2022-01-17 22:30 | XMS_ITS | Encounter Summary ---
:1965 Author Organization [facility] Address [address] [place] [address] Care Team Providers Name Role Phone Noreen Hills APRN METROPOLITAN EDITOR Unavailable [phone] Noreen Hills APRN, CNP Primary Care Provider Kalyan Galvan Unavailable Unavailable Encounter Details Date [...] How often do you attend religious or presybeterian Patient refused 08/08/2019 services? Do [...] Depression Total Score: 9 08/09/2019 7:03 AM STEAM FITTER SUPERVISOR MAINTENANCE documented as of this encounter Care Teams Parking Lot Chauffeur Relationship Specialty Start Date End Date Noreen Hills PCP - General Nurse Practitioner 01/09/19 12/12/21 SEAN Haley METROPOLITAN EDITOR [address] [facility] [place] [address] Noreen Hills Assigned PCP 06/16/18 SEAN Haley METROPOLITAN EDITOR [address] [facility] [place] [address] Kalyan Galvan Personal Advocate & 08/08/19 Liaison (PAL) documented as of this encounter
--- OUTSIDE RECORDS SUMMARY | 2022-01-17 22:30 | XMS_ITS | Encounter Summary ---
:1965 Author Organization [facility] Address [address] [place] [address] Care Team Providers Name Role Phone Noreen Hills APRN ADOLESCENT PSYCHIATRIST Unavailable [phone] Noreen Hills APRN, CNP Primary Care Provider [phone] Kalyan Galvan Unavailable Unavailable Encounter Details Date [...] How often do you attend sikhism or congregation Patient refused 08/08/2019 services? Do [...] Depression Total Score: 9 08/09/2019 7:03 AM CLAIM ADJUSTER documented as of this encounter Care Teams Bartender Server Relationship Specialty Start Date End Date Noreen Hills PCP - General Nurse Practitioner 01/09/19 12/12/21 SEAN Haley ADOLESCENT PSYCHIATRIST [address] [facility] [place] [address] Noreen Hills Assigned PCP 06/16/18 SEAN Haley ADOLESCENT PSYCHIATRIST [address] [facility] [place] [address] Kalyan Galvan Personal Advocate & 08/08/19 Liaison (PAL) documented as of this encounter
--- OUTSIDE RECORDS SUMMARY | 2022-01-17 22:30 | XMS_ITS | Encounter Summary ---
:1965 Author Organization [facility] Address [address] [place] [address] Care Team Providers Name Role Phone Noreen Hills APRN REEL WINDER Unavailable [phone] Noreen Hills APRN REEL WINDER Primary Care Provider [phone] Kalyan Galvan Unavailable Unavailable Lashae Trevino [facility] Unavailable [phone] Reason for Visit Diagnostic Imaging MRI (Routine) - Closed Specialty Diagnoses / Procedures Referred By Contact Refer red To Contact Radiology. Diagnoses Pain of left lower leg Rodrigo Man Mri Procedures MR Lumbar Spine w/o Contrast MR Lumbar Spine w/o & w Contrast MIKAYLA Lacy [address] [facility] [place] [phone] [place] [id number] Referral ID Status Reason Start Date Expiration Date Visits Requ ested Visits Authorized [id number] Closed 10/07/2019 10/06/2020 1 1 Encounter Details Date Type Department Care Team Description 10/21/2019 Hospital Encounter [facility] Alejo Donovan, Pain of left lower [facility] Rodrigo [place] leg [address] [place] [address] [address] [place] [address] [place] [address] Social History Tobacco Use Types Packs/Day Years [...] How often do you attend hinduism or confucianism Patient refused 08/08/2019 services? Do [...] goal < 7% (H) fluticasone (FLONASE) 50 [place] 1-2 sprays 16 g 11 08/08 MCG/ACT [...] Total Score: 9 08/09/2019 7:03 AM SENIOR WEB ENGINEER documented as of this encounter Care Teams Cross Roller Relationship Specialty Start Date End Date Noreen Hills PCP - General Nurse Practitioner 01/09/19 12/12/21 SEAN Haley REEL WINDER [address] [facility] [place] [phone] Noreen Hills Assigned PCP 06/16/18 SEAN Haley REEL WINDER [address] [facility] [place] [phone] Kalyan Galvan Personal Advocate & 08/08/19 Liaison (PAL) Lashae Trevino Pharmacist Pharmacist 10/14/19 12/01/20 Kiran [facility] [address] [facility] [place] [phone] documented as of this encounter
--- OUTSIDE RECORDS SUMMARY | 2022-01-17 22:30 | XMS_ITS | Encounter Summary ---
:1965 Author Organization [place] Address [address] [place] [address] Care Team Providers Name Role Phone Noreen Hills APRN [facility] Unavailable [phone] Noreen Hills APRN [facility] Primary Care Provider [phone] Kalyan Galvan Unavailable Unavailable Lashae Trevino [facility] Unavailable [phone] Reason for Visit Reason Comments Medication Therapy Management Med Therapy Management (Routine) - Closed Specialty Diagnoses / Procedures Referred By Contact Refer red To Contact Pharmacist Diagnoses Dry mouth Noreen Hills APRN [facility] [address] [facility] [place] [address] Referral ID Status Reason Start Date Expiration Date Visits Requ ested Visits Authorized [id number] Closed 09/30/2019 09/29/2020 1 1 Encounter Details Date Type Department Care Team Description 10/14/2019 [facility] [place] Lashae Trevino Medic ation Therapy Health/Nurse Clinic Pino Beck [facility] Management Visit [address] [place] [address] [address] [place] [address] (Work) [phone] Social History Tobacco Use Types Packs/Day Years [...] How often do you attend bahai or jainism Patient refused 08/08/2019 services? Do you belong to any clubs or organizations such as No 08/08/2019 bahai groups, unions, fraConscious Box or athletic groups, or school groups? How [...] of this encounter Progress Notes Lashae Trevino, [facility] - 10/14/2019 9:30 AM CDT MTM ENCOUNTER SUBJECTIVE/OBJECTIVE: Megan Choi is a 54 year old female called for an initial visit. She was referred to me from Noreen [facility]. Patient consented to a telehealth visit: yes Telemedicine Visit Details Type of service: Telephone visit Start Time: 9:31 AM End Time: 10:47 AM Originating Location (pt. Location): Home Distant Location (provider location): [facility] Mode of Communication: Telephone Chief Complaint: Biggest concern is dry mouth. Also wondering if any medications could be causing insomnia. Allergies/ADRs: Reviewed in [facility] Tobacco: reports that she has never smoked. She has never used smokeless tobacco. Alcohol: Less than 1 beverage / month Caffeine: was caffeine free, drinking diet caffeine pop, maybe 3 a day. Activity: works 4 days a week and on her feet 7h a day. PMH: Reviewed in [facility] Medication Adherence/Access: no issues reported Dry mouth: Teeth, tongue and mouth are very dry. Feels she can only get a few words out with gettingstuck. This is all day and makes it hard for her to work as she needs to socialize with customers ([facility] [place]). Has had issues with this for a [...] not completed yet. She has tried melatonin bvwo-xai-nxrnkdf but was not effective. She is not [...] for multivitamin due to difficulty of purchasing pobx-vob-lmttfdf as many stores are out of stock. [...] Trevino PharmD Medication Therapy Management Pharmacist Pager#: [phone] documented in this encounter Plan of Treatment [...] Depression Total Score: 9 08/09/2019 7:03 AM BASEBALL GLOVE STUFFER documented as of this encounter Care Teams Barrel And Receiver Aligner Relationship Specialty Start Date End Date Noreen Hills PCP - General Nurse Practitioner 01/09/19 12/12/21 SEAN Haley TERRAZZO HELPER [address] [facility] [place] [address] Noreen Hills Assigned PCP 06/16/18 SEAN Haley TERRAZZO HELPER [address] [facility] [place] [phone] Kalyan Galvan Personal Advocate & 08/08/19 Liaison (PAL) Lashae Trevino Pharmacist Pharmacist 10/14/19 12/01/20 [facility] [address] [facility] [place] [phone] documented as of this encounter
--- OUTSIDE RECORDS SUMMARY | 2022-01-17 22:30 | XMS_ITS | Encounter Summary ---
:1965 Author Organization [place] Address [address] [place] [address] Care Team Providers Name Role Phone Noreen Hills APRN SNOW TECHNICIAN Unavailable [phone] Noreen Hills APRN SNOW TECHNICIAN Primary Care Provider [phone] Kalyan Galvan Unavailable Unavailable Lashae Trevino [facility] Unavailable [phone] Reason for Visit Reason Comments Medication Refill Encounter Details Date Type Department Care Team Description 12/10/2019 Refill [facility] Noreen Hills, Medication Refill Pino ESTRADA SNOW TECHNICIAN [address]305 [facility] [address] [place] [address] [address] [place] [address] [place] [address] [phone] Social History Tobacco Use Types Packs/Day Years [...] How often do you attend amish or alevism Patient refused 08/08/2019 services? Do [...] Depression Total Score: 9 08/09/2019 7:03 AM SCREEN PRINTING EQUIPMENT SETTER documented as of this encounter Care Teams Teacher Adventure Education Relationship Specialty Start Date End Date Noreen Hills PCP - General Nurse Practitioner 01/09/19 12/12/21 SEAN Haley SNOW TECHNICIAN 3[address] [facility] [place] [address] Noreen Hills Assigned PCP 06/16/18 SEAN Haley SNOW TECHNICIAN [address] [facility] [place] [phone] Kalyan Galvan Personal Advocate & 08/08/19 Liaison (PAL) Lashae Trevino Pharmacist Pharmacist 10/14/19 12/01/20 Kiran [facility] 6030 [facility] [place] [address] documented as of this encounter
--- OUTSIDE RECORDS SUMMARY | 2022-01-17 22:30 | XMS_ITS | Encounter Summary ---
:1965 Author Organization [place] Address [address] [place] [address] Care Team Providers Name Role Phone Noreen Hills APRN CLOTH ROLL WINDER Unavailable [phone] Noreen Hills APRN CLOTH ROLL WINDER Primary Care Provider [phone] Kalyan Galvan Unavailable Unavailable Lashae Trevino [facility] Unavailable [phone] Reason for Visit Reason Comments Medication Refill Encounter Details Date Type Department Care Team Description 12/09/2019 Refill [facility] Noreen Hills, Medication Refill Pino ESTRADA CLOTH ROLL WINDER 3305 [facility] [address] [place] [address] [address] [place] [address] [place] [address] [phone] Social History Tobacco Use Types Packs/Day Years [...] How often do you attend episcopal or jainism Patient refused 08/08/2019 services? Do [...] Depression Total Score: 9 08/09/2019 7:03 AM CREATIVE SERVICES MANAGER documented as of this encounter Care Teams Journeyman Sheet Metal Worker Relationship Specialty Start Date End Date Noreen Hills PCP - General Nurse Practitioner 01/09/19 12/12/21 SEAN Haley CLOTH ROLL WINDER 3305 [facility] [place] [address] Noreen Hills Assigned PCP 06/16/18 SEAN Haley CLOTH ROLL WINDER 3305 [facility] [place] [phone] Kalyan Galvan Personal Advocate & 08/08/19 Liaison (PAL) Lashae Trevino Pharmacist Pharmacist 10/14/19 12/01/20 Kiran [facility] [address] [facility] [place] [address] documented as of this encounter
--- OUTSIDE RECORDS SUMMARY | 2022-01-17 22:30 | XMS_ITS | Encounter Summary ---
:1965 Author Organization [place] Address [address] [place] [address] Care Team Providers Name Role Phone Noreen Hills APRN VAT TENDER Unavailable [phone] Noreen Hills APRN VAT TENDER Primary Care Provider [phone] Kalyan Galvan Unavailable Unavailable Lashae Trevino [facility] Unavailable [phone] Reason for Referral Consultation (Routine) - Closed Specialty Diagnoses / Procedures Referred By Contact Refer red To Contact Diagnoses Chronic insomnia Eduardo Sharma MD [address] [address] Referral ID Status Reason Start Date Expiration Date Visits Requ ested Visits Authorized [id number] Closed 10/31/2019 10/30/2020 1 1 Reason for Visit Consultation (Routine) - Closed Specialty Diagnoses / Procedures Referred By Contact Refer red To Contact Diagnoses Snoring Noreen Hills [facility] GREEN END DEPARTMENT SUPERVISOR VAT TENDER [facility] [place] [address] [place] [address] Referral ID Status Reason Start Date Expiration Date Visits Requ ested Visits Authorized [id number] Closed 08/08/2019 08/07/2020 1 1 Encounter Details Date Type Department Care Team Description 10/31/2019 Virtual Visit [facility] Noreen Hills Aleyda johnsonemily, GREEN END DEPARTMENT SUPERVISOR VAT TENDER [address] [facility] [place] [address] Snoring (Primary Dx); Sleep Centers Eduardo Goldman MD [address] [facility] [address] [place] [id number] Chronic insomnia; [address] [place] (obst ructive sleep apnea); [facility] fatigue [address] [place] [address] [...] How often do you attend alevism or spiritism Patient refused 08/08/2019 services? Do [...] They lamps are sold at [employer] such as [employer] or [employer]. A prescription can be written to get insurance coverage in some cases. They are also sold on [employer]. Using the light and melatonin should help [...] it is recommended that you consult an multiskill operator before using a light box. If you have a condition that makes your eyes very sensitive to light, macular degeneration, a family history of such problems, or diabetic changes to your eyes, consult an multiskill operator before using a light box. If you have anxiety disorder and have an increase in anxiety discontinue use. documented in this encounter Progress Notes Eduardo Sharma MD - 10/31/2019 3:30 PM CDT Megan Choi is a 54 [...] at 10:00 AM. 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 fluticasone (FLONASE) 50 MCG/ACT nasal spray Richards 1-2 sprays into both nostrils daily 16 [...] Address next visit ??? Family history of [place] (myocardial infarction) 04/13/2008 Priority: Medium At early age, father [place] at age 40 Past Medical/Surgical History: Past [...] a week Gets together: Patient refused Attends spiritism service: Patient refused Active member of club or organization: No Attends meetings of clubs or organizations: Patient refused Relationship status: ??? Intimate partner violence Fear of current or ex partner: Not on file Emotionally abused: Not on file Physically abused: Not on file Forced sexual activity: Not on file Other Topics Concern ??? Parent/sibling w/ CABG, [place] or angioplasty before 65F 55M? No Social [...] Name Type Priority Associated Diagnoses Order S [facility] SLEEP PSYCHOLOGY REFERRAL Referral Routine Chronic [...] Depression Total Score: 9 08/09/2019 7:03 AM PRACTICAL NURSING FACULTY documented as of this encounter Care Teams Belt Puncher Relationship Specialty Start Date End Date Noreen Hills PCP - General Nurse Practitioner 01/09/19 12/12/21 SEAN Haley VAT TENDER [address] [facility] [place] [address] Noreen Hills Assigned PCP 06/16/18 SEAN Haley VAT TENDER [address] [facility] [place] [address] Kalyan Galvan Personal Advocate & 08/08/19 Liaison (PAL) Lashae Trevino Pharmacist Pharmacist 10/14/19 12/01/20 Kiran, [facility] [address] [place], [place] [id number] documented as of this encounter
--- OUTSIDE RECORDS SUMMARY | 2022-01-17 22:31 | XMS_ITS | Encounter Summary ---
:1965 Author Organization [place] Address [address] [place] [address] Care Team Providers Name Role Phone Noreen Hills APRN SCHOLASTIC APTITUDE TEST GRADER Unavailable [phone] Noreen Hills APRN SCHOLASTIC APTITUDE TEST GRADER Primary Care Provider [phone] Reason for Visit Reason Onset Date Comments Refill Request 03/05/2019 omeprazole (PRILOSEC ) [address] capsule Encounter Details Date Type Department Care Team Description 03/05/2019 [facility] Vanda Guerrero R efill Request Clinic Pino SALDANA (omeprazole (PRILOSEC) [address] [facility] [address] capsule) [facility] [address] [place] [address] [place] [phone] [phone] Social History Tobacco Use Types Packs/Day Years [...] encounter Miscellaneous Notes Telephone Encounter - Wilda Gupat - 03/05/2019 11:13 AM CDT Requested Prescriptions [...] as of this encounter Care Teams Set Up Mechanic Coil Winding Machines Relationship Specialty Start Date End Date Noreen Hills APRN SCHOLASTIC APTITUDE TEST GRADER PCP - General Nurse Practitioner 01/09/19 12/12/[address] [place] [address] [place] [address] Noreen Hills APRN SCHOLASTIC APTITUDE TEST GRADER Assigned PCP 06/16/[address] [place] [address] [place] [address] documented as of this encounter
--- OUTSIDE RECORDS SUMMARY | 2022-01-17 22:31 | XMS_ITS | Encounter Summary ---
:1965 Author Organization [place] Address [address] [place] [address] Care Team Providers Name Role Phone Noreen Hills APRN INDEPENDENT CROP CONSULTANT Unavailable [phone] Noreen Hills APRN, CNP Primary Care Provider [phone] Kalyan Galvan Unavailable Unavailable Encounter Details Date [...] How often do you attend catholic or yazidism Patient refused 08/08/2019 services? Do [...] Depression Total Score: 9 08/09/2019 7:03 AM CERT PHARMACY TECH documented as of this encounter Care Teams Claims Auditor Relationship Specialty Start Date End Date Noreen Hills PCP - General Nurse Practitioner 01/09/19 12/12/21 SEAN Haley INDEPENDENT CROP CONSULTANT 3305 [facility] [place] [address] Noreen Hills Assigned PCP 06/16/18 SEAN Haley INDEPENDENT CROP CONSULTANT 3305 [facility] [place] [address] Kalyan Galvan Personal Advocate & 08/08/19 Liaison (PAL) documented as of this encounter
--- OUTSIDE RECORDS SUMMARY | 2022-01-17 22:31 | XMS_ITS | Encounter Summary ---
:1965 Author Organization [place] Address [address] [place] [address] Care Team Providers Name Role Phone Noreen Hills APRN, CNP Unavailable [phone] Noreen Hills APRN, CNP Primary Care Provider [phone] Encounter Details Date Type Department Care Team [...] How often do you attend adventism or nondenominational Patient refused 08/08/2019 services? Do [...] as of this encounter Care Teams Inspector Balance Wheel Motion Relationship Specialty Start Date End Date Noreen Hills APRN FIELD AUDITOR PCP - General Nurse Practitioner 01/09/19 12/12/[address] [place] [address] [place] [address] Noreen Hills APRN FIELD AUDITOR Assigned PCP 06/16/[address] [place] [address] [place] [address] documented as of this encounter
--- OUTSIDE RECORDS SUMMARY | 2022-01-17 22:31 | XMS_ITS | Encounter Summary ---
:1965 Author Organization [place] Address [address] [place] [place] [address] Care Team Providers Name Role Phone Noreen Hills APRN ONCOLOGY REGISTRAR Unavailable [phone] Noreen Hills APRN ONCOLOGY REGISTRAR Primary Care Provider [phone] Reason for Visit Reason Comments Medication Refill Encounter Details Date Type Department Care Team Description 06/11/2019 Refill [facility] Noreen Hills, Medication Refill Pino ESTRADA ONCOLOGY REGISTRAR [address] [place] [address] [place] [address] [phone] Social History Tobacco Use Types Packs/Day Years [...] How often do you attend taoist or baptism Patient refused 08/08/2019 services? Do [...] Ok x one refill has appointment pending ERING EQUIPMENT TENDER Telephone Encounter - Rosalia Garcia MA - [...] 90 days) Aug 08, 2019 9:15 AM RENDERING EQUIPMENT TENDER (Arrive by 8:50 AM) Adult Preventative Visit with Noreen Hills APRN CNP [facility] Pino) [address] [place] [address] [address] [place] [address] ERING EQUIPMENT TENDER documented in this encounter Plan of [...] as of this encounter Care Teams Detective Private Eye Relationship Specialty Start Date End Date Noreen Hills APRN CNP PCP - General Nurse Practitioner 01/09/19 12/12/[address] [place] [address] [place] [address] Noreen Hills APRN CNP Assigned PCP 06/16/[address] [place] [address] documented as of this encounter
--- OUTSIDE RECORDS SUMMARY | 2022-01-17 22:31 | XMS_ITS | Encounter Summary ---
:1965 Author Organization [place] Address [address] [place] [address] Care Team Providers Name Role Phone Noreen Hills APRN, CNP Unavailable [phone] Noreen Hills APRN, CNP Primary Care Provider [phone] Reason for Visit [facility] Physical Therapy (Routine) - Closed Specialty Diagnoses / Procedures Referred By Contact Refer red To Contact Diagnoses Left foot pain Right foot pain Coello's neuroma of both feet Pes cavus Peroneal tendinitis of both lower legs Agatha Null, DPM, Podiatry/Foot and Ankle Surgery [address] [place] [address] Referral ID Status Reason Start Date Expiration Date Visits Requ ested Visits Authorized [id number] Closed 01/21/2019 06/10/2019 30 30 Encounter Details Date Type Department Care Team Description 02/04/2019 Therapy Visit [facility] Marcelo Trejo, Left foot pain; Rehabilitation Services PT Right foot pain; Pino [address] Peroneal tendinitis of both lower legs; [address] [place], [place] Chronic ri ght shoulder pain [facility] [address] [address] [address] [place] [address] (Work) [phone] Social History Tobacco Use Types Packs/Day Years [...] How often do you attend yazidism or yarsanism Patient refused 08/08/2019 services? Do [...] documented as of this encounter Care Teams Metrology Manager Relationship Specialty Start Date End Date Noreen Hills APRN BODYBUILDER PCP - General Nurse Practitioner 01/09/19 12/12/[address] [place] [address] [place] [address] Noreen Hills APRN BODYBUILDER Assigned PCP 06/16/[address] [place] [address] [place] [address] documented as of this encounter
--- OUTSIDE RECORDS SUMMARY | 2022-01-17 22:31 | XMS_ITS | Encounter Summary ---
:1965 Author Organization [place] Address [address] [place] [address] Care Team Providers Name Role Phone Noreen Hills APRN, CNP Unavailable [phone] Noreen Hills APRN, CNP Primary Care Provider [phone] Encounter Details Date Type Department Care Team [...] How often do you attend congregation or hinduism Patient refused 08/08/2019 services? Do [...] documented as of this encounter Care Teams Movers Relationship Specialty Start Date End Date Noreen Hills APRN CUSTOMS EXAMINER PCP - General Nurse Practitioner 01/09/19 12/12/[address] [place] [address] [place] [address] Noreen Hills APRN CUSTOMS EXAMINER Assigned PCP 06/16/[address] [place] [address] [place] [address] documented as of this encounter
--- OUTSIDE RECORDS SUMMARY | 2022-01-17 22:31 | XMS_ITS | Encounter Summary ---
:1965 Author Organization [place] Address [address] [place] [address] Care Team Providers Name Role Phone Noreen Hills APRN, CNP Unavailable [phone] Noreen Hills APRN, CNP Primary Care Provider [phone] Reason for Visit Reason Comments Medication Refill duplicate, see other enc - C VS ALLERGY RELIEF-D 10-240 MG 24 hr tablet Encounter Details Date Type Department Care Team Description 05/21/2019 Refill [facility] Vanda Guerrero M edication Refill Clinic Pino SALDANA (duplicate, see other [address] [place] [address] [facility] enc - [facility] RELIEF-D 10-240 MG 24 [address] [place] [address] hr tablet) [place] [address] [phone] Social History Tobacco Use Types Packs/Day Years [...] How often do you attend confucianism or anabaptism Patient refused 08/08/2019 services? Do [...] is a duplicate request. See 05/18/19 encounter. LVERIZER documented in this encounter Plan of Treatment Not on filedocumented as of this encounter Visit Diagnoses Diagnosis Chronic seasonal allergic rhinitis documented in this encounter Additional Health Concerns Assessment Noted Time PHQ-9 Depression Total Score: 10 01/02/2019 10:18 AM C DT documented as of this encounter Care Teams Pediatric Acute Care Unit Nurse Relationship Specialty Start Date End Date Noreen Hills APRN PERFORMANCE INSTRUCTOR PCP - General Nurse Practitioner 01/09/19 12/12/[address] [place] [address] [place] [address] Noreen Hills APRN PERFORMANCE INSTRUCTOR Assigned PCP 06/16/[address] [place] [address] [place] [address] documented as of this encounter
--- OUTSIDE RECORDS SUMMARY | 2022-01-17 22:31 | XMS_ITS | Encounter Summary ---
:1965 Author Organization [place] Address [address] [place] [address] Care Team Providers Name Role Phone Noreen Hills APRN REDUCING SYSTEM OPERATOR Unavailable [phone] Noreen Hills APRN REDUCING SYSTEM OPERATOR Primary Care Provider [phone] Reason for Visit Reason Onset Date Comments Refill Request 05/22/2019 Encounter Details Date Type Department Care Team Description 05/22/2019 MyC Refill [facility] Noreen Hills Ref ill Request Pino Haley APRN REDUCING SYSTEM OPERATOR 3305 [facility] [address] [place] [address] [address] [place] [address] [place] [phone] Social History Tobacco Use Types Packs/Day Years [...] How often do you attend jewish or temple Patient refused 08/08/2019 services? Do [...] Shefali Root MA - 06/02/2019 9:03 AM METAL ALLOY SCIENTIST Patient has appointment on 08/08/2019 Shefali Root MA L ALLOY SCIENTIST Telephone Encounter - Christi Panda MA - 05/30/2019 9:09 AM CST My Chart message sent to schedule. Christi Panda CMA L ALLOY SCIENTIST Telephone Encounter - Lainey Wells - 05/23/2019 12:22 PM CST 1st attempt l/m. Lainey Wells on 05/23/2019 at 12:22 PM L ALLOY SCIENTIST Telephone Encounter - Noreen Hills APRN CNP - 05/23/2019 11:28 AM METAL ALLOY SCIENTIST I will fill Ambien. I prefer her not being on Sudafed. Can worsen anxiety and blood pressure\ Would she be willing to switch to regular loratadine? Due for physical in Jul. Please assist with scheduling. L ALLOY SCIENTIST Telephone Encounter - Liya Gonzalez RN - 05/23/2019 9:16 AM CST Loratadine prescription failed transmission Ambien has 2 weeks left on script Thea OzunaHORTICULTURALIST [facility] [phone] L ALLOY SCIENTIST documented in this encounter Plan of Treatment Not on filedocumented as of this encounter Visit Diagnoses Diagnosis Persistent insomnia Persistent disorder of initiating or martínez ntaining sleep Chronic seasonal allergic rhinitis documented in this encounter Additional Health Concerns Assessment Noted Time PHQ-9 Depression Total Score: 10 01/02/2019 10:18 AM C DT documented as of this encounter Care Teams Coloring Room Man Relationship Specialty Start Date End Date Noreen Hills APRN CNP PCP - General Nurse Practitioner 01/09/19 12/12/[address] [place] [address] [place] [address] Noreen Hills APRN CNP Assigned PCP 06/16/[address] [place] [address] [place] [address] documented as of this encounter
--- OUTSIDE RECORDS SUMMARY | 2022-01-17 22:31 | XMS_ITS | Encounter Summary ---
:1965 Author Organization [place] Address [address] [place] [address] Care Team Providers Name Role Phone Noreen Hills APRN, CNP Unavailable [phone] Noreen Hills APRN, CNP Primary Care Provider [phone] Reason for Visit [facility] (Routine) - Closed Specialty Diagnoses / Procedures Referred By Contact Refer red To Contact Diagnoses Left foot pain Right foot pain Coello's neuroma of both feet Pes cavus Peroneal tendinitis of both lower legs Agatha Null, DPM, Podiatry/Foot and Ankle Surgery [address] [place] [address] Referral ID Status Reason Start Date Expiration Date Visits Requ ested Visits Authorized [id number] Closed 01/21/2019 06/10/2019 30 30 Encounter Details Date Type Department Care Team Description 02/11/2019 Therapy Visit M [facility] Marcelo Trejo, Left foot pain; Rehabilitation Services PT Right foot pain; [place] [address] Peroneal tendinitis of both lower legs; [address] [place], [place] Chronic ri ght shoulder pain [facility] [address] [address] [address] [place] [address] (Work) [phone] Social History Tobacco Use Types Packs/Day Years [...] How often do you attend jain or scientologist Patient refused 08/08/2019 services? Do you belong to any clubs or organizations such as No 08/08/2019 jain groups, unions, fraternal or athletic groups, or [...] documented as of this encounter Care Teams Earth Moving Technician Relationship Specialty Start Date End Date Noreen Hills APRN PLASTERER MAINTENANCE PCP - General Nurse Practitioner 01/09/19 12/12/21 [address] [facility] [place] [address] Noreen Hills APRN PLASTERER MAINTENANCE Assigned PCP 06/16/[address] [place] [address] [place] [address] documented as of this encounter
--- OUTSIDE RECORDS SUMMARY | 2022-01-17 22:31 | XMS_ITS | Encounter Summary ---
:1965 Author Organization [place] Address [address] [place] [address] Care Team Providers Name Role Phone Noreen Hills APRN, CNP Unavailable [phone] Noreen Hills APRN, CNP Primary Care Provider [phone] Reason for Visit [facility] (Routine) - Closed Specialty Diagnoses / Procedures Referred By Contact Refer red To Contact Diagnoses Left foot pain Right foot pain Coello's neuroma of both feet Pes cavus Peroneal tendinitis of both lower legs gAatha Null, DPM, Podiatry/Foot and Ankle Surgery [address] [place] [address] Referral ID Status Reason Start Date Expiration Date Visits Requ ested Visits Authorized [id number] Closed 01/21/2019 06/10/2019 30 30 Encounter Details Date Type Department Care Team Description 01/28/2019 Therapy Visit M [facility] Marcelo Trejo, Left foot pain; Rehabilitation Services PT Right foot pain; [place] [address] Coello's neuroma of both feet; [address] [place], [place] Pes cavus; [address] [address] Peroneal tendinitis of both lower legs; [address] Chronic right shoulder pain [place] [address] (Work) [phone] Social History Tobacco Use Types Packs/Day Years [...] How often do you attend mandaen or yazdanism Patient refused 08/08/2019 services? Do [...] Trejo, PT - 01/28/2019 10:00 AM CDT [facility] Initial Evaluation Subjective: The history is provided by the patient. No bilingual speech language pathologist was used. Megan Choi being seen for [...] gradually worsening. Special tests: X-ray. 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 Restrictions include: Working in normal job [...] Sheet for this information) Short term and watermaster goals: (See Goal Flow Sheet for this [...] Procedure Name Priority Date/Time Associated Diagnosis Comme [facility] THERAPEUTIC Routine 01/28/2019 10:42 AM Left [...] documented as of this encounter Care Teams Splash Line Operator Relationship Specialty Start Date End Date Noreen Hills APRN JUNIOR SALES REPRESENTATIVE PCP - General Nurse Practitioner 01/09/19 12/12/[address] [place] [address] [place] [address] Noreen Hills APRN JUNIOR SALES REPRESENTATIVE Assigned PCP 06/16/[address] [place] [address] [place] [address] documented as of this encounter
--- OUTSIDE RECORDS SUMMARY | 2022-01-17 22:31 | XMS_ITS | Encounter Summary ---
:1965 Author Organization [place] Address [address] [place] [address] Care Team Providers Name Role Phone Noreen Hills APRN, CNP Unavailable [phone] Noreen Hills APRN, CNP Primary Care Provider Reason for Visit Reason Comments Medication Refill resend - [facility]- D 10-240 MG 24 hr tablet Encounter Details Date Type Department Care Team Description 05/18/2019 Refill [facility] Vanda Guerrero M edication Refill Clinic [place] SALDANA (resend - [facility] [address] [place] 3305 [facility] RELIE F-D 10-240 MG [address] [facility] [address] hr tablet) [address] [place] [address] [place] [address] [phone] Social History Tobacco Use Types Packs/Day Years [...] How often do you attend christianity or orthodox Patient refused 08/08/2019 services? Do [...] Telephone Encounter - Kallie Celaya RN - 05/19/2019 7:37 AM CST Noreen, please resend. 05/09/19 rx failed to [facility]. OL COMMUNITY RELATIONS COORDINATOR Telephone Encounter - Wilda Patterson - 05/18/2019 2:52 PM CST [facility]-D 10-240 MG 24 hr tablet Last Written Prescription Date: 04/29/19 Last Fill Quantity: 90 # refills: 1 Last office visit: 01/02/2019 with prescribing provider: Future Office Visit: OL COMMUNITY RELATIONS COORDINATOR documented in this encounter Plan of Treatment Not on filedocumented as of this encounter Visit Diagnoses Diagnosis Chronic seasonal allergic rhinitis documented in this encounter Additional Health Concerns Assessment Noted Time PHQ-9 Depression Total Score: 10 01/02/2019 10:18 AM C DT documented as of this encounter Care Teams Insulation Board Back Tender Relationship Specialty Start Date End Date Noreen Hills APRN BRICK SETTER OPERATOR PCP - General Nurse Practitioner 01/09/19 12/12/[address] [place] [address] [place] [address] Noreen Hills APRN BRICK SETTER OPERATOR Assigned PCP 06/16/[address] [place] [address] [place] [address] documented as of this encounter
--- OUTSIDE RECORDS SUMMARY | 2022-01-17 22:31 | XMS_ITS | Encounter Summary ---
:1965 Author Organization [place] Address [address] [place] [address] Care Team Providers Name Role Phone Noreen Hills APRN, CNP Unavailable [phone] Noreen Hills APRN, CNP Primary Care Provider [phone] Reason for Visit Reason Comments Medication Refill topiramide Encounter Details Date Type Department Care Team Description 08/04/2019 Refill [facility] Noreen Hills Medication Refill Clinic [place] Haley APRN CNP (topiramide) [address] [place] 3305 [facility] [address] [place] [address] [place] [id number] [phone] Social History Tobacco Use Types Packs/Day Years [...] How often do you attend jainism or christianity Patient refused 08/08/2019 services? Do [...] in past 26 months Janice Jaeger RN ICATIONS ADMINISTRATOR Telephone Encounter - Dania Chappell - 08/04/2019 [...] 90 days) Aug 08, 2019 9:15 AM APPLICATIONS ADMINISTRATOR (Arrive by 8:50 AM) Adult Preventative Visit with Noreen Hills APRN [facility] [address] [place] [address] [address] [facility] [address] ICATIONS ADMINISTRATOR documented in this encounter Plan of Treatment Not on filedocumented as of this encounter Visit Diagnoses Diagnosis Migraine without status migrainosus, not intractable, unspecified migraine type Morbid obesity (H) Morbid obesity documented in this encounter Additional Health Concerns Assessment Noted Time PHQ-9 Depression Total Score: 10 01/02/2019 10:18 AM C DT documented as of this encounter Care Teams Inventory Auditor Relationship Specialty Start Date End Date Noreen Hills APRN CULINARY WORKER PCP - General Nurse Practitioner 01/09/19 12/12/[address] [place] [address] [place] [address] Noreen Hills APRN CULINARY WORKER Assigned PCP 06/16/[address] [place] [address] [place] [address] documented as of this encounter
--- OUTSIDE RECORDS SUMMARY | 2022-01-17 22:31 | XMS_ITS | Encounter Summary ---
:1965 Author Organization [place] Address [address] [place] [address] Care Team Providers Name Role Phone Noreen Hills APRN, CNP Unavailable [phone] Noreen Hills APRN, CNP Primary Care Provider [phone] Reason for Visit Reason Comments Medication Refill Encounter Details Date Type Department Care Team Description 05/06/2019 Refill [facility] Aleyda Guerrero MD Medication Refill [place] 3305 [facility] 3305 [facility] [place] [address] [address] [place] [address] [phone] Social History Tobacco Use Types Packs/Day Years [...] How often do you attend pentecostal or tenriism Patient refused 08/08/2019 services? Do [...] or Health refill protocol or controlled substance MA THERAPIST documented in this encounter Plan of Treatment Not on filedocumented as of this encounter Visit Diagnoses Diagnosis Chronic seasonal allergic rhinitis documented in this encounter Additional Health Concerns Assessment Noted Time PHQ-9 Depression Total Score: 10 01/02/2019 10:18 AM C DT documented as of this encounter Care Teams Waiter/Waitress Second Class Relationship Specialty Start Date End Date Noreen Hills APRN KETTLE HAND PCP - General Nurse Practitioner 01/09/19 12/12/[address] [place] [address] [place] [address] Noreen Hills APRN KETTLE HAND Assigned PCP 06/16/[address] [place] [address] [place] [address] documented as of this encounter
--- OUTSIDE RECORDS SUMMARY | 2022-01-17 22:31 | XMS_ITS | Encounter Summary ---
:1965 Author Organization [place] Address [address] [place] [address] Care Team Providers Name Role Phone Noreen Hills APRN SHEET ROCK SANDER Unavailable [phone] Noreen Hills APRN, CNP Primary Care Provider [phone] Kalyan Galvan Unavailable Unavailable Lashae Trevino [facility] Unavailable [phone] Eduardo Sharma MD Unavailable Rios Monteiro MD Unavailable Marcelo Artis PA-C Unavailable [phone] Rodrigo Man PA-C Unavailable Reason for Visit Reason Onset Date Comments Refill Request 08/08/2019 DULoxetine (CYMBALTA ) 30 MG capsule Encounter Details Date Type Department Care Team Description 08/08/2019 Refill [facility] Noreen Hills Req uest Clinic [place] Haley APRN CNP (DULoxetine (CYMBALTA) [address] [place] [address]305 [facility] 30 MG capsule) [facility] [address] [place] [address] [place] [address] [phone] Social History Tobacco Use Types Packs/Day Years [...] How often do you attend caodaism or moravian Patient refused 08/08/2019 services? Do [...] this in for her. Radha Manning RN [facility] -- Triage Nurse LATING MACHINE OPERATOR Telephone Encounter - Noreen Hills APRN CNP - 08/11/2019 9:41 AM INSULATING MACHINE OPERATOR Please verify that she was previously taking 1 tab twice a day. If so, please switch it to 1, 60mg tab, once per day. Pls notify her of the change. LATING MACHINE OPERATOR Telephone Encounter - Gayathri Mcallister RN - 08/11/2019 9:38 AM CST Please review sig for duloxetine, hydrochlorothiazide and metformin ( per review of last office visit 2000 mg daily of metformin, I am not sure about Duloxetine sig and dispense amount, Thank you) Gayathri Mcallister RN Message handled by Nurse Triage. LATING MACHINE OPERATOR Telephone Encounter - Kartik Javier - 08/08/2019 5:46 PM CST Also Review Rx directions for Metformin hydrochloride 500 mg. Pharmacy is requesting clarification. LATING MACHINE OPERATOR Telephone Encounter - Kartik Javier - 08/08/2019 2:39 PM CST Script Clarification: Rx has two sets of directions. Please send new Rx with the Proper Directions. Thanks. LATING MACHINE OPERATOR documented in this encounter Plan of Treatment Not on filedocumented as of this encounter Visit Diagnoses Diagnosis Fibromyalgia Mylagia and myositis, unspecified documented in this encounter Additional Health Concerns Infection Onset Date Last Indicated Resolved Time Rule Out COVID-19 08/25/2020 08/25/2020 08/26/2020 3:2 3 PM CDT Assessment Noted Time PHQ-9 Depression Total Score: 9 08/09/2019 7:03 AM INSULATING MACHINE OPERATOR documented as of this encounter Care Teams Carton Filler Relationship Specialty Start Date End Date Noreen Hills PCP - General Nurse Practitioner 01/09/19 12/12/21 SEAN Haley SHEET ROCK SANDER [address]305 [facility] [place] [address] Noreen Hills Assigned PCP 06/16/18 SEAN Haley SHEET ROCK SANDER [address]305 [facility] [place] [id number] Kalyan Galvan Personal Advocate & 08/08/19 Liaison (PAL) Lashae Trevino Pharmacist Pharmacist 10/14/19 12/01/[facility] [address] [facility] [place] [id number] Eduardo Sharma MD Assigned Sleep Provider 04/02/20 05/07/21 [address] [facility] [address] [place], [place] [address] Rios Monteiro MD Assigned Musculoskeletal 04/02/20 08/24/20 [address] [employer] Provider [address] [place], [place] [address] Marcelo Artis Assigned Musculoskeletal 08/25/20 08/20/21 MIKAYLA Nuno Provider [address] [place], [place] [address] Rodrigo Man Assigned Surgical 08/25/2011/27 MIKAYLA Lacy Provider [address] [facility] [address] [place] [address] documented as of this encounter
--- OUTSIDE RECORDS SUMMARY | 2022-01-17 22:31 | XMS_ITS | Encounter Summary ---
:1965 Author Organization [place] Address [address] [place] [address] Care Team Providers Name Role Phone Noreen Hills APRN, CNP Unavailable [phone] Noreen Hills APRN, CNP Primary Care Provider [phone] Reason for Visit Diagnostic Imaging XR (Routine) - Closed Specialty Diagnoses / Procedures Referred By Contact Refer red To Contact Diagnoses Left foot pain Agatha Null, DPM, Procedures XR Foot Left G/E 3 Views Podiatry/Foot and Ankle Surgery [address] [place] [address] Referral ID Status Reason Start Date Expiration Date Visits Requ ested Visits Authorized [id number] Closed 01/21/2019 01/21/2020 1 1 Encounter Details Date Type Department Care Team Description 01/21/2019 [facility] [place] DPM, Podiatry/Foot [address] [facility] [place] [address] [address] [address] [facility] [address] [place] [address] Social History Tobacco Use Types [...] How often do you attend catholic or holiness Patient refused 08/08/2019 services? Do you belong to any clubs or organizations such as No 08/08/2019 catholic groups, [employer], fraMindoula Health or athletic groups, or school groups? [...] documented as of this encounter Care Teams Second Baker Relationship Specialty Start Date End Date Noreen Hills APRN APPLICATIONS SUPPORT ENGINEER PCP - General Nurse Practitioner 01/09/19 12/12/[address] [place] [address] [place] [address] Noreen Hills APRN APPLICATIONS SUPPORT ENGINEER Assigned PCP 06/16/[address] [place] [address] [place] [address] documented as of this encounter
--- OUTSIDE RECORDS SUMMARY | 2022-01-17 22:31 | XMS_ITS | Encounter Summary ---
:1965 Author Organization [place] Address [address] [place] [address] Care Team Providers Name Role Phone Noreen Hills APRN, CNP Unavailable [phone] Noreen Hills APRN, CNP Primary Care Provider [phone] Encounter Details Date Type Department Care Team [...] often do you attend jehovah's witness or church Patient refused 08/08/2019 services? Do [...] documented as of this encounter Care Teams Heat Treat Worker Relationship Specialty Start Date End Date Noreen Hills APRN EXTERMINATOR PCP - General Nurse Practitioner 01/09/19 12/12/[address] [place] [address] [place] [address] Noreen Hills APRN EXTERMINATOR Assigned PCP 06/16/[address] [place] [address] [place] [address] documented as of this encounter
--- OUTSIDE RECORDS SUMMARY | 2022-01-17 22:31 | XMS_ITS | Encounter Summary ---
:1965 Author Organization [place] Address [address] [place] [address] Care Team Providers Name Role Phone Noreen Hills APRN, CNP Unavailable [phone] Noreen Hills APRN, CNP Primary Care Provider [phone] Kalyan Galvan Unavailable Unavailable Lashae Trevino [facility] Unavailable [phone] Eduardo Shrama MD Unavailable Rios Monteiro MD Unavailable Marcelo Artis PA-C Unavailable [phone] Rodrigo Man PA-C Unavailable [phone] Reason for Visit Reason Onset Date Comments Medication Refill 04/25/2019 metFORMIN (GLUCOPHAG E) 500 MG tablet Encounter Details Date Type Department Care Team Description 04/25/2019 Refill [facility] Noreen Hills Medication Refill Clinic [place] Haley APRN CNP (metFORMIN (GLUCOPHAGE) [address] [place] 3305 [facility] 500 M G tablet) [facility] [address] [place] [address] [place] [address] [phone] Social History Tobacco Use Types Packs/Day Years [...] How often do you attend faith or orthodoxy Patient refused 08/08/2019 services? Do [...] not current: LDL, creatinine Due for appointment ID INTERN Telephone Encounter - Lara Villalba - 04/25/2019 [...] & Orders section of the refill encounter. ID INTERN documented in this encounter Plan of Treatment [...] documented as of this encounter Care Teams Uniform Room Attendant Relationship Specialty Start Date End Date Noreen Hills PCP - General Nurse Practitioner 01/09/19 12/12/21 SEAN Haley WHEEL ALIGNMENT TECHNICIAN [address]305 [facility] [place] [address] Noreen Hills Assigned PCP 06/16/18 SEAN Haley WHEEL ALIGNMENT TECHNICIAN 3305 [facility] [place] [address] Kalyan Galvan Personal Advocate & 08/08/19 Liaison (PAL) Lashae Trevino Pharmacist Pharmacist 10/14/19 12/01/20 [facility] 1440 [facility] [place] [address] Eduardo Sharma MD Assigned Sleep Provider 04/02/20 05/07/21 [address] [place] [id number] Rios Monteiro MD Assigned Musculoskeletal 04/02/20 08/24/20 [address] [employer] Provider [address] [place] [id number] Marcelo Artis Assigned Musculoskeletal 08/25/20 08/20/21 MIKAYLA Nuno Provider [address] [facility] [address] [place] [address] Rodrigo Man Assigned Surgical 08/25/2011/27 MIKAYLA Lacy Provider 6545 [facility] 450 [place], [place] [address] documented as of this encounter
--- OUTSIDE RECORDS SUMMARY | 2022-01-17 22:31 | XMS_ITS | Encounter Summary ---
:1965 Author Organization [place] Address [address] [place] [address] Care Team Providers Name Role Phone Noreen Hills APRN, CNP Unavailable [phone] Noreen Hills APRN, CNP Primary Care Provider [phone] Reason for Visit Reason Comments Medication Refill Encounter Details Date Type Department Care Team Description 05/26/2019 Refill [facility] Aleyda Guerrero MD Medication Refill [place] 3305 [facility] 3305 [facility] [place] [address] [address] [place] [address] [phone] Social History Tobacco Use Types Packs/Day Years [...] How often do you attend mormonism or tenriism Patient refused 08/08/2019 services? Do [...] Hills APRN CNP - 05/27/2019 11:08 AM THREAD DRESSER See refill request from 05/22 AD DRESSER Telephone Encounter - Flakita Gaines RN - 05/27/2019 10:57 AM CST Routing refill request to provider for review/approval because: Drug not on the [facility] refill protocol Flakita Gaines RN AD DRESSER documented in this encounter Plan of Treatment Not on filedocumented as of this encounter Visit Diagnoses Diagnosis Chronic seasonal allergic rhinitis documented in this encounter Additional Health Concerns Assessment Noted Time PHQ-9 Depression Total Score: 10 01/02/2019 10:18 AM C DT documented as of this encounter Care Teams Telemarketing Sales Representative Relationship Specialty Start Date End Date Noreen Hills APRN SERVER SERVICE ASSISTANT PCP - General Nurse Practitioner 01/09/19 12/12/[address] [place] [address] [place] [address] Noreen Hills APRN SERVER SERVICE ASSISTANT Assigned PCP 06/16/[address] [place] [address] [place] [address] documented as of this encounter
--- OUTSIDE RECORDS SUMMARY | 2022-01-17 22:31 | XMS_ITS | Encounter Summary ---
:1965 Author Organization [facility] Address [address] [place] [address] Care Team Providers Name Role Phone Noreen Hills APRN, CNP Unavailable [phone] Noreen Hills APRN, CNP Primary Care Provider [phone] Reason for Referral (Routine) - Closed Specialty Diagnoses / Procedures Referred By Contact Refer red To Contact Diagnoses Left foot pain Right foot pain Moran's neuroma of both feet Pes cavus Peroneal tendinitis of both lower legs Agatha Nieves DPM, Procedures TRIAMCINOLONE ACET INJ NOS Podiatry/Foot and Ankle Surgery [address] [place] [address] Referral ID Status Reason Start Date Expiration Date Visits Requ ested Visits Authorized [id number] Closed 01/21/2019 01/21/2020 1 1 A Physical Therapy (Routine) - Closed Specialty Diagnoses / Procedures Referred By Contact Refer red To Contact Diagnoses Left foot pain Right foot pain Moran's neuroma of both feet Pes cavus Peroneal tendinitis of both lower legs Agatha Nieves DPM, Podiatry/Foot and Ankle Surgery [address] [facility] [address] [place] [address] Referral ID Status Reason Start Date Expiration Date Visits Requ ested Visits Authorized [id number] Closed 01/21/2019 06/10/2019 30 30 iagnostic Imaging XR (Routine) - Closed Specialty Diagnoses / Procedures Referred By Contact Refer red To Contact Diagnoses Left foot pain Agatha Nieves DPM, Procedures XR Foot Left G/E 3 Views Podiatry/Foot and Ankle Surgery [id number] [place] [address] [address] [place] [address] Referral ID Status Reason Start Date Expiration Date Visits Requ ested Visits Authorized [id number] Closed 01/21/2019 01/21/2020 1 1 Reason for Visit Reason Comments Pain Encounter Details Date Type Department Care Team Description 01/21/2019 Office Visit [facility] Agatha Nieves, Left fo ot pain (Primary Dx); Clinic [place] D[place], Podiatry/Foot Right foot pain; [address] [facility] and [facility] Surgery Moran's neuroma of both feet; [place] [address] Seda hwang; [address] [address] Peroneal tendinitis of both lower legs; [phone] [place] Type 2 diabet es mellitus without complication, without long-term current use of insulin (H) [address] (Wo rk) Social History Tobacco Use Types [...] organizations such as No 08/08/2019 samaritan groups, [employer], fraBeneq or athletic groups, or school groups? How [...] 10:30 AM CDT Thank you for choosing [facility]! [facility] SCHEDULE SUNDAY AM - [place] SUNDAY - [place] [facility] [facility] [address] [place] [address] [place] [address] / FX [phone] / FX [phone] SUNDAY - [place] SUNDAY AM - [facility] [address] [address] [place] [address] [place] [address] / FX [phone] SUNDAY PM - [place] SCHEDULE SURGERY: [phone] [facility] [address] BILLING QUESTIONS: [phone] [place] [address] AFTER HOURS: [phone] / FX [phone] APPOINTMENTS: [phone] Consumer Casiano Line (CPL) [phone] PHYSICAL THERAPY REFERRAL [facility] ([facility]) [phone] MORAN'S NEUROMA Moran's neuroma is an enlargement [...] shoe and massaging your foot DIAGNOSIS: Your crew leader gluing will ask many questions about your signs [...] of you. Do 2 sets of 10. cell tuber machine the same position as above. While keeping [...] and getting you back on your feet. [facility] has a Comprehensive Weight Management Program. This program includes counseling, education,non-surgical and surgical approaches to weight loss. If you are interested in learning more either talk to you primary care provider or call [phone]. documented in this encounter Progress Notes Agatha Nieves DPM, Podiatry/Foot and Ankle Surgery - 01/21/2019 10:30 AM CDT PATIENT HISTORY: Noreen Hills APRN requested I see this patient [...] 3 ??? fluticasone (FLONASE) 50 MCG/ACT spray, [place] 1-2 sprays into both nostrils daily, Disp: [...] INCREASE, Disp: 180 capsule, Rfl: 0 ??? OcclutechTOUCH ULTRA test strip, USE TO TEST BLOOD [...] file Gets together: Not on file Attends church service: Not on file Active member of club or organization: Not on file Attends meetings of clubs or organizations: Not on file Relationship status: Not on file ??? Intimate partner violence: Fear of current or ex partner: Not on file Emotionally abused: Not on file Physically abused: Not on file Forced sexual activity: Not on file Other Topics Concern ??? Parent/sibling w/ CABG, UT or angioplasty before 65F 55M? No Social History Narrative ??? Not on file FAMILY HISTORY: Family History Problem Relation Age of Onset ??? Cardiovascular Mother [place] age 72 ??? Diabetes Mother Type II ??? Hypertension Mother ??? Lipids Mother ??? Arthritis Mother OA ??? Kidney Disease Mother 70 ??? Cardiovascular Father [place] early 40s, subsequent bipass ??? Hypertension Father [...] insulin (H) PLAN: Reviewed [facility]. Reviewed and discussed causes of tendonitis. We [...] documented as of this encounter Care Teams Ductfixing Plumber Relationship Specialty Start Date End Date Noreen Hills APRN WETLAND SCIENTIST PCP - General Nurse Practitioner 01/09/19 12/12/[address] [place] [address] [place] [address] Noreen Hills APRN WETLAND SCIENTIST Assigned PCP 06/16/18 [address] [facility] [place] [address] documented as of this encounter
--- OUTSIDE RECORDS SUMMARY | 2022-01-17 22:31 | XMS_ITS | Encounter Summary ---
:1965 Author Organization [facility] Address [address] [place] [address] Care Team Providers Name Role Phone Vanda Guerrero MD Primary Care Provider [phone] Noreen Hills APRN WOODEN FRAME BUILDER Unavailable [phone] Noreen Hills APRN, CNP Primary Care Provider [phone] Reason for Visit Reason Comments Medication Refill Encounter Details Date Type Department Care Team Description 01/07/2019 Refill [facility] Noreen Hills, Medication Refill Pino ESTRADA WOODEN FRAME BUILDER [address] [facility] [address] [facility] [address] [place] [address] [place] [address] [phone] Social History Tobacco Use Types Packs/Day Years [...] How often do you attend tenriism or pentecostalism Patient refused 08/08/2019 services? Do [...] documented as of this encounter Care Teams Naval Gunfire Spotter Relationship Specialty Start Date End Date Vanda Guerrero MD PCP - General Internal Medicine 04/08/15 01/08/[address] [place] [address] [place] [address] Noreen Hills APRN WOODEN FRAME BUILDER PCP - General Nurse Practitioner 01/09/19 12/12/[address] [place] [address] [place] [address] Noreen Hills APRN WOODEN FRAME BUILDER Assigned PCP 06/16/[address] [place] [address] [place] [address] documented as of this encounter
--- OUTSIDE RECORDS SUMMARY | 2022-01-17 22:31 | XMS_ITS | Encounter Summary ---
:1965 Author Organization [facility] Address [address] [place] [address] Care Team Providers Name Role Phone Vanda Guerrero MD Primary Care Provider [phone] Noreen Hills APRN MANAGER INCOME TAX Unavailable [phone] Encounter Details Date Type Department Care Team [...] How often do you attend mormonism or rastafari Patient refused 08/08/2019 services? Do [...] documented as of this encounter Care Teams Rubber Goods Supervisor Relationship Specialty Start Date End Date Vanda Guerrero MD PCP - General Internal Medicine 04/08/15 01/08/[address] [place] [address] [place] [address] Noreen Hills APRN MANAGER INCOME TAX Assigned PCP 06/16/[address] [place] [address] [place] [address] documented as of this encounter
--- OUTSIDE RECORDS SUMMARY | 2022-01-17 22:31 | XMS_ITS | Encounter Summary ---
:1965 Author Organization [place] Address [address] [place] [address] Care Team Providers Name Role Phone Noreen Hills APRN, CNP Unavailable [phone] Noreen Hills APRN, CNP Primary Care Provider [phone] Encounter Details Date Type Department Care Team [...] documented as of this encounter Care Teams Equity Research Analyst Relationship Specialty Start Date End Date Noreen Hills APRN INTERVENTIONAL RADIOLOGY TECHNOLOGIST PCP - General Nurse Practitioner 01/09/19 12/12/[address] [place] [address] [place] [address] Noreen Hills APRN INTERVENTIONAL RADIOLOGY TECHNOLOGIST Assigned PCP 06/16/[address] [place] [address] [place] [address] documented as of this encounter
--- OUTSIDE RECORDS SUMMARY | 2022-01-17 22:31 | XMS_ITS | Encounter Summary ---
:1965 Author Organization [facility] Address [address] [place] [address] Care Team Providers Name Role Phone Noreen Hills APRN, CNP Unavailable [phone] Noreen Hills APRN, CNP Primary Care Provider [phone] Kalyan Galvan Unavailable Unavailable Reason for Referral Consultation (Routine) - Closed Specialty Diagnoses / Procedures Referred By Contact Refer red To Contact Orthopedics and Sports Diagnoses Pain of left lower leg Noreen Hills [facility] SEAN Haley [facility] [address] [place] [address]?? [place] [address] [facility] [place] [address] [address] [place] [address] Phone: Fax: Referral ID Status Reason Start Date Expiration Date Visits Requ ested Visits Authorized [id number] Closed 09/30/2019 09/29/2020 1 1 ed Therapy Management (Routine) - Closed Specialty Diagnoses / Procedures Referred By Contact Refer red To Contact Pharmacist Diagnoses Dry mouth Noreen Hills APRN [address] [place] [place] [address] Referral ID Status Reason Start Date Expiration Date Visits Requ ested Visits Authorized [id number] Closed 09/30/2019 09/29/2020 1 1 Reason for Visit Reason Onset Date Comments Weight Problem 09/30/2019 Encounter Details Date Type Department Care Team Description 09/30/2019 Virtual Visit [facility] Noreen Hills Dry mouth (Primary Dx); Clinic Pino Haely APRN Pain of left lower leg; [address] UNIT NURSE Taste disorder; [address] [facility] Leg swelling; [address] [facility] Migraine without status migrainosus, not intractable, unspecified migraine type; [place] [address] [place] [address] Morbid obesity (H) [phone] Social History Tobacco Use Types Packs/Day Years [...] How often do you attend temple or zoroastrianism Patient refused 08/08/2019 services? Do [...] this encounter Progress Notes Noreen Hills APRN UNIT NURSE - 09/30/2019 9:05 AM CDT Megan Choi [...] No red flags. - Orthopedic & Spine Insect Control Aide Referral; Future 3. Taste disorder Everything tastes [...] Pain of left lower leg Expected: 09/30/2019 Insect Control Aide Referral (Approxim ate), Expires: 2020 documented as [...] Depression Total Score: 9 08/09/2019 7:03 AM SOLAR MECHANICAL ENGINEER documented as of this encounter Care Teams Gyroscopic Instrument Tester Relationship Specialty Start Date End Date Noreen Hills PCP - General Nurse Practitioner 01/09/19 12/12/21 SEAN Haley CNP [address] [facility] [place] [address] Noreen Hills Assigned PCP 06/16/18 SEAN Haley CNP [address] [facility] [place] [address] Kalyan Galvan Personal Advocate & 08/08/19 Liaison (PAL) documented as of this encounter
--- OUTSIDE RECORDS SUMMARY | 2022-01-17 22:31 | XMS_ITS | Encounter Summary ---
:1965 Author Organization [facility] Address [address] [place] [address] Care Team Providers Name Role Phone Noreen Hills APRN SPINNER IRON Unavailable [phone] Noreen Hills APRN SPINNER IRON Primary Care Provider [phone] Reason for Visit Reason Comments Medication Refill Encounter Details Date Type Department Care Team Description 07/08/2019 Refill [facility] Noreen Hills, Medication Refill Pino ESTRADA SPINNER IRON [address] [place] [address] [place] [address] [phone] Social History Tobacco Use Types Packs/Day Years [...] How often do you attend congregational or gnosticism Patient refused 08/08/2019 services? Do [...] this encounter Miscellaneous Notes Telephone Encounter - Deisy Moon RN - 07/08/2019 3:47 PM ASSET LIABILITY ANALYST Routing refill request to provider for review/approval because: Drug not on the G refill protocol Next 5 appointments (look out 90 days) Aug 08, 2019 9:15 AM ASSET LIABILITY ANALYST (Arrive by 8:50 AM) Adult Preventative Visit with Noreen Hills [facility]N [facility] [address] [place] [address] [address] [facility] [address] T LIABILITY ANALYST documented in this encounter Plan of Treatment Not on filedocumented as of this encounter Visit Diagnoses Diagnosis Constipation, unspecified constipation t ype documented in this encounter Additional Health Concerns Assessment Noted Time PHQ-9 Depression Total Score: 10 01/02/2019 10:18 AM C DT documented as of this encounter Care Teams Legal Secretary Relationship Specialty Start Date End Date Noreen Hills APRN SPINNER IRON PCP - General Nurse Practitioner 01/09/19 12/12/[address] [place] [address] [place] [address] Noreen Hills APRN SPINNER IRON Assigned PCP 06/16/[address] [place] [address] [place] [address] documented as of this encounter
--- OUTSIDE RECORDS SUMMARY | 2022-01-17 22:31 | XMS_ITS | Encounter Summary ---
:1965 Author Organization [facility] Address [address] [place] [address] Care Team Providers Name Role Phone Noreen Hills APRN, CNP Unavailable [phone] Noreen Hills APRN, CNP Primary Care Provider [phone] Kalyan Galvan Unavailable Unavailable Reason for Referral Consultation (Routine) - Closed Specialty Diagnoses / Procedures Referred By Contact Refer red To Contact Diagnoses Snoring Noreen Hills [facility] SEAN [address] [place] [address] [place] [address] Referral ID Status Reason Start Date Expiration Date Visits Requ ested Visits Authorized [id number] Closed 08/08/2019 08/07/2020 1 1 AN Reason for Visit Reason Comments Physical Encounter Details Date Type Department Care Team Description 08/08[facility] Routine ge neral medical examination at a health care facility (Primary Dx); Clinic Pino Haley APRN Moderate episode of recurren t major depressive disorder (H); [address] [facility] Persistent insomnia; [address] [facility]; [address] [facility] Vitamin D deficiency; [place] [address] [place] [address] Migraine without status migrainosus, not intractable, unspecified migraine type; [phone] Morbid obesity (H); (Work) Snoring; [phone] Type 2 diabetes mellitus with complication, without [...] How often do you attend hindu or confucianism Patient refused 08/08/2019 services? Do [...] Comments Blood Pressure 104/62 08/08/2019 8:59 AM BARMAN Pulse 84 08/08/2019 8:59 AM [facility]MAN Temperature 36.5 ??C (97.7 ??F) 08/08/2019 8:59 AM [facility] Respiratory Rate 16 08/08/2019 8:59 AM [facility]MAN Oxygen Saturation 97% 08/08/2019 8:59 AM BARMAN Inhaled Oxygen Concentration - - Weight 88 kg (193 lb 14.4 oz) 08/08/2019 8:59 AM [facility]MAN Height 157.5 cm (5' 2) 08/08/2019 8:59 AM [facility]MAN Body Mass Index 35.46 08/08/2019 8:59 AM BARMAN documented in this encounter Patient Instructions Patient [...] eye doctor every 1 to 2 years. AN documented in this encounter Progress Notes Noreen [...] NEG Negative Negative Test canceled - Lab job order clerk error(A) HPV 18 DNA NEG Negative Negative Test canceled - Lab job order clerk error(A) OTHER HR HPV NEG Negative Negative Test canceled - Lab job order clerk error(A) Reviewed and updated as [...] - SLEEP EVALUATION & MANAGEMENT REFERRAL - [facility] [phone] (Age 18 and up); Future 9. Type [...] - fluticasone (FLONASE) 50 MCG/ACT nasal spray; [place] 1-2 sprays into both nostrils daily Dispense: [...] Lung CA Screening Noreen Hills APRN CNP [facility] Christi Hanna MA - 08/08/2019 9:15 AM CST Forwarded to SB# RACHEL kennedy. This is regarding Ambien-verified with provider Christi Panda CMA Lashae Dorsey [facility] - 08/08/2019 9:15 AM CST Considerations: 1.Common [...] Trevino, PharmD Medication Therapy Management Pharmacist Pager#: [phone] AN documented in this encounter Plan of Treatment Scheduled Referrals Name Type Priority Associated Diagnoses Order S chedule SLEEP EVALUATION & Referral Routine Snoring 1 Occurre nces starting MANAGEMENT REFERRAL - 2019 until ADULT -[facility] 2020 [facility] [phone] (Age 18 and up) documented as of this encounter Procedures Procedure Name Priority Date/Time Associated Diagnosis Comme nts VITAMIN D DEFICIENCY Routine 08/08/2019 10:17 Vitamin D defici ency Results for this SCREENING AM [facility] procedure are i n the results section. ALBUMIN RANDOM URINE Routine 08/08/2019 10:17 Routine general Results for this QUANTITATIVE AM [facility] medical examination procedur e are in at a health care the results facility section. LIPID REFLEX TO Routine 08/08/2019 10:17 Routine general Resul ts for this DIRECT LDL PANEL AM [facility] medical examination proc edure are in at a [facility] results facility section. HEMOGLOBIN A1C Routine 08/08/2019 10:17 Routine general Result s for this AM [facility] medical examination procedur e are in at a health care the results facility section. BASIC METABOLIC PANEL Routine 08/08/2019 10:17 Routine general Results for this AM [facility] medical examination procedur e are in at a health care the results facility section. documented in this encounter Results Vitamin D Deficiency (08/08/2019 10:17 AM BARMAN) P athologist Signature Vitamin D 49 20 - 75 08/08/2019 [facility] Deficiency ug/L 4:03 PM [facility] Comment: Season, race, dietary intake, and treatm ent affect the concentration of 24-kqpudhk-Vwseymm D. Values may decreas e during winter [...] Blood specimen 08/08/2019 10:17 0 (specimen) AM [facility]MAN 10:18 AM [facility]MAN Noreen Hills APRN, CNP LAB - BLOOD ORDERABLES Performing Organization Address City/State/ZIP Code Phon e Number [facility] [address] [place] [address] [facility] (ABNORMAL) HEMOGLOBIN A1C (08/08/2019 10:17 AM BAR[facility]) athologist Signature Hemoglobin A1C 6.2 (H) 0 - 5.6 % 08/08/2019 [place] 10:44 AM [facility] Comment: Normal <5.7% Prediabetes 5.7-6.4% ??Diab etes 6.5% or higher - adopted from ADA consensus guidelines. Specimen Anatomical Collection Method Collection Time Receive d Time (Source) Location / / Volume Laterality Blood specimen 08/08/2019 10:17 0 (specimen) AM [facility] 10:18 AM [facility] Noreen Hills APRN, CNP LAB - BLOOD ORDERABLES Performing Organization Address City/State/ZIP Code Phon e Number [facility] [address] [place] [address] Albumin Random Urine Quantitative with Creat Ratio (08/08/2019 10:17 AM BAR[facility]) athologist Signature Creatinine 154 mg/dL 08/09/2019 [place] Urine 1:54 PM [facility] Albumin Urine 11 mg/L 08/09/2019 [place] mg/L 1:59 PM [facility] Albumin Urine 7.14 0 - 25 08/09/2019 [place] mg/g Cr mg/g Cr 1:59 PM [facility] Specimen Anatomical Collection Method Collection Time Receive d Time (Source) Location / / Volume Laterality Urine specimen 08/08/2019 10:17 0 (specimen) AM [facility] 10:18 AM [facility] Noreen Hills APRN, CNP LAB - URINE ORDERABLES Performing Organization Address City/State/ZIP Code Phon e Number [facility] [address] [place] [address] (ABNORMAL) Lipid panel reflex to direct LDL Fasting (08/08/2019 10:17 AM [facility]) P athologist Signature Cholesterol 180 <200 mg/dL 08/08/2019 [place] 7:47 PM [facility] Triglycerides 153 (H) <150 mg/dL 08/08/2019 [place] 7:47 PM [facility] Comment: Borderline high: ??150-199 mg/dl High: ? 200-499 mg/dl Very high: ? >499 mg/dl HDL Cholesterol 46 (L) >49 mg/dL 08/08/2019 7:47 PM [facility] LDL Cholesterol 103 (H) <100 mg/dL 08/08/2019 7:47 PM [facility] Comment: Above desirable: ??100-129 mg/dl Borderline High: ??130-159 mg/dL High: ? 160-189 mg/dL Very high: ? >189 mg/dl Non HDL Cholesterol 134 (H) <130 mg/dL 08/08/2019 7:47 PM [facility] Comment: Above Desirable: ??130-159 mg/dl Borderline high: ??160-189 mg/dl High: ? 190-219 mg/dl Very high: ? >219 mg/dl Specimen Anatomical Collection Method Collection Time Receive d Time (Source) Location / / Volume Laterality Blood specimen 08/08/2019 10:17 0 (specimen) AM [facility] 10:18 AM [facility] Noreen Hills SENIOR TECHNICAL RECRUITER JEWEL HOLE CORNERER LAB - BLOOD ORDERABLES Performing Organization Address City/State/ZIP Code Phon e Number M [facility] [address] [place] [address] [phone] [facility] [address] [place] [address], U [phone] (ABNORMAL) BASIC METABOLIC PANEL (08/08/2019 10:17 AM [facility]) [facility] Method Time Signature Sodium 143 133 - 144 08/08/2019 [place] mmol/L 7:27 PM [facility] Potassium 4.3 3.4 - 5.3 08/08/2019 [place] mmol/L 7:27 PM [facility] Chloride 112 (H) 94 - 109 08/08/2019 [place] mmol/L 7:27 PM [facility] Carbon Dioxide 26 20 - 32 08/08/2019 [place] mmol/L 7:47 PM [facility] Anion Gap 5 3 - 14 08/08/2019 [place] mmol/L 7:47 PM [facility] Glucose 120 (H) 70 - 99 08/08/2019 [place] mg/dL 7:47 PM [facility] Urea Nitrogen 16 7 - 30 08/08/2019 [place] mg/dL 7:47 PM [facility] Creatinine 0.72 0.52 - 08/08/2019 [place] 1.04 mg/dL 7:47 PM [facility] GFR Estimate >90 >60 08/08/2019 [place] mL/min/{1. 7:47 PM [facility] 73_m2} HOSPITAL Comment: Non GFR Calc Starting 05/28/2018, serum creatinine ba sed estimated GFR (eGFR) will be calculated using the Chronic Kidney Dise [facility] Epidemiology Collaboration (CKD-EPI) equation. GFR Estimate If >90 >60 mL/min/{1.73_m2} 08/08/2019 7: [address] [facility] Comment: GFR Calc Starting 05/28/2018, serum creatinine ba sed estimated GFR (eGFR) will be calculated using the Chronic Kidney Dise [facility] Epidemiology Collaboration (CKD-EPI) equation. Calcium 9.5 8.5 - 10.1 mg/dL 08/08/2019 7:47 PM [facility] Specimen Anatomical Collection Method Collection Time Receive d Time (Source) Location / / Volume Laterality Blood specimen 08/08/2019 10:17 0 (specimen) AM [facility] 10:18 AM [facility] Noreen Hills APRN JEWEL HOLE CORNERER LAB - BLOOD ORDERABLES Performing Organization Address City/State/ZIP Code Phon e Number M [facility] [address] [place] [address] [facility] [address] [place], [place] [address] [phone] [place] [address] [address] [place], [place] [address], U [phone] documented in this encounter Visit Diagnoses Diagnosis [...] Depression Total Score: 9 08/09/2019 7:03 AM [facility] documented as of this encounter Care Teams Cancer Registry Manager Relationship Specialty Start Date End Date Noreen Hills PCP - General Nurse Practitioner 01/09/19 12/12/21 SEAN Haley JEWEL HOLE CORNERER [address] [facility] [place] [address] Noreen Hills Assigned PCP 06/16/18 SEAN Haley JEWEL HOLE CORNERER [address] [facility] [place] [address] Kalyan Galvan Personal Advocate & 08/08/19 Liaison (PAL) documented as of this encounter
--- OUTSIDE RECORDS SUMMARY | 2022-01-17 22:31 | XMS_ITS | Encounter Summary ---
:1965 Author Organization [place] Address [address] [place] [address] Care Team Providers Name Role Phone Noreen Hills APRN, CNP Unavailable [phone] Noreen Hills APRN, CNP Primary Care Provider [phone] Reason for Visit [facility] (Routine) - Closed Specialty Diagnoses / Procedures Referred By Contact Refer red To Contact Diagnoses Acute pain of right shoulder Noreen Hills APRN GUM DIPPER [address] [facility] [place] [address] Referral ID Status Reason Start Date Expiration Date Visits Requ ested Visits Authorized [id number] Closed 01/02/2019 06/10/2019 30 30 Encounter Details Date Type Department Care Team Description 01/10/2019 Therapy Visit [facility] Marcelo Trejo Chro isaac right shoulder pain (Primary Dx); Rehabilitation Services PT Acute pain of right shoulder [place] [address] [facility] [address] [address] [address] [place] [address] (Work) [phone] Social History Tobacco Use Types Packs/Day Years [...] How often do you attend voodoo or episcopalian Patient refused 08/08/2019 services? Do [...] Trejo PT - 01/10/2019 3:50 PM CDT [facility] Initial Evaluation Subjective: The history is provided by the patient and a caregiver. No assistant speech language pathologist was used. Megan Choi [...] Since onset symptoms are unchanged. 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 Restrictions include: Working in normal job without [...] Sheet for this information) Short term and assisted goals: (See Goal Flow Sheet for this [...] Procedure Name Priority Date/Time Associated Diagnosis Comme [facility] THERAPEUTIC Routine 01/10/2019 4:26 PM [...] documented as of this encounter Care Teams Retanned Leather Roller Relationship Specialty Start Date End Date Noreen Hills APRN GUM DIPPER PCP - General Nurse Practitioner 01/09/19 12/12/21 [address] [facility] [place] [id number] Noreen Hills APRN GUM DIPPER Assigned PCP 06/16/18 [address] [facility] [place] [address] documented as of this encounter
--- OUTSIDE RECORDS SUMMARY | 2022-01-17 22:31 | XMS_ITS | Encounter Summary ---
:1965 Author Organization [place] Address [address] [place] [address] Care Team Providers Name Role Phone Noreen Hills APRN, CNP Unavailable [phone] Noreen Hills APRN, CNP Primary Care Provider [phone] Reason for Visit [facility] (Routine) - Closed Specialty Diagnoses / Procedures Referred By Contact Refer red To Contact Diagnoses Left foot pain Right foot pain Coello's neuroma of both feet Pes cavus Peroneal tendinitis of both lower legs Agatha Null, DPM, Podiatry/Foot and Ankle Surgery [address] [place] [address] Referral ID Status Reason Start Date Expiration Date Visits Requ ested Visits Authorized [id number] Closed 01/21/2019 06/10/2019 30 30 Encounter Details Date Type Department Care Team Description 02/25/2019 [facility], Left fo ot pain; Rehabilitation Services PT Right foot pain; [place] [address] Peroneal tendinitis of both lower legs; [address], [address] Chronic right shoulder pain [place], [place] [address] [address] [place] [address] [phone] Social History Tobacco Use Types Packs/Day Years [...] How often do you attend temple or mu-ism Patient refused 08/08/2019 services? Do [...] and time spent performing 1:1 timed codes. ET OPERATOR documented in this encounter Plan of Treatment Not on filedocumented as of this encounter Procedures Procedure Name Priority Date/Time Associated Diagnosis Comme nts [facility] NEUROMUSCULAR Routine 02/25/2019 10:49 AM Left foot pain RE-EDUCATION CDT Right foot pain Peroneal tendinitis of both lower le gs Chronic right shoulder pain [facility] THERAPEUTIC EXERCISES Routine 02/25/2019 10:49 AM Le [...] documented as of this encounter Care Teams Water Truck Driver Relationship Specialty Start Date End Date Noreen Hills APRN MACHINIST 2ND SHIFT PCP - General Nurse Practitioner 01/09/19 12/12/[address] [place] [address] [place] [address] Noreen Hills APRN MACHINIST 2ND SHIFT Assigned PCP 06/16/18 [address] [facility] [place] [address] documented as of this encounter
--- OUTSIDE RECORDS SUMMARY | 2022-01-17 22:31 | XMS_ITS | Encounter Summary ---
:1965 Author Organization [place] Address [address] [place] [address] Care Team Providers Name Role Phone Noreen Hills APRN ART APPRAISER Unavailable [phone] Noreen Hills APRN, CNP Primary Care Provider [phone] Kalyan Galvan Unavailable Unavailable Encounter Details Date [...] How often do you attend mu-ism or taoist Patient refused 08/08/2019 services? Do [...] Depression Total Score: 9 08/09/2019 7:03 AM PROGRAM MANAGEMENT INTERN documented as of this encounter Care Teams Curing Machine Operator Relationship Specialty Start Date End Date Noreen Hills PCP - General Nurse Practitioner 01/09/19 12/12/21 SEAN Haley ART APPRAISER [address] [facility] [place] [address] Noreen Hills Assigned PCP 06/16/18 SEAN Haley ART APPRAISER [address] [facility] [place] [address] Kalyan Galvan Personal Advocate & 08/08/19 Liaison (PAL) documented as of this encounter
--- OUTSIDE RECORDS SUMMARY | 2022-01-17 22:31 | XMS_ITS | Encounter Summary ---
:1965 Author Organization [place] Address [address] [place] [address] Care Team Providers Name Role Phone Noreen Hills APRN TRADE UNION SECRETARY Unavailable [phone] Noreen Hills APRN TRADE UNION SECRETARY Primary Care Provider [phone] Encounter Details Date Type Department Care Team Description 02/03/2019 Orders Only [facility] Noreen Hills Type 2 [facility] [place]ino Haley APRN mellitus wit h Laboratory TRADE UNION SECRETARY complication, without [address] [place] [address] [facility] long- term current use [facility] of insulin (H) [address] [place] [address] [place] [phone] Social History Tobacco Use Types Packs/Day Years [...] How often do you attend taoism or anglican Patient refused 08/08/2019 services? Do [...] Time Signature Occult Blood Negative NEG^Negati 02/01/2019 [facility] FIT ve 10:58 AM CDT [facility] Specimen Anatomical Collection Method Collection Time Receive d Time (Source) Location / / Volume Laterality Stool specimen 01/25/2019 7:35 AM 019 (specimen) CDT 10:01 AM CDT Noreen Hills APRN, CNP LAB - STOOLS ORDERABLES Performing Organization Address City/State/ZIP Code Phon e Number [facility] [address] [place], [place] [id number] [place] [address] documented in this encounter Visit Diagnoses Diagnosis Type 2 diabetes mellitus with complicati on, without long-term current use of insulin (H) documented in this encounter Additional Health Concerns Assessment Noted Time PHQ-9 Depression Total Score: 10 01/02/2019 10:18 AM C DT documented as of this encounter Care Teams Trimmer Climber Relationship Specialty Start Date End Date Noreen Hills APRN CNP PCP - General Nurse Practitioner 01/09/19 12/12/21 [address] [facility] [place] [address] Noreen Hills APRN CNP Assigned PCP 06/16/18 [address] [facility] [place] [address] documented as of this encounter
--- OUTSIDE RECORDS SUMMARY | 2022-01-17 22:31 | XMS_ITS | Encounter Summary ---
:1965 Author Organization [place] Address [address] [place] [address] Care Team Providers Name Role Phone Noreen Hills APRN, CNP Unavailable [phone] Noreen Hills APRN, CNP Primary Care Provider [phone] Reason for Visit Reason Comments Medication Refill Encounter Details Date Type Department Care Team Description 05/13/2019 Refill [facility] Aleyda Guerrero MD Medication Refill [place] [address] [facility] 3305 [facility] [place] [address] [address] [place] [address] [phone] Social History Tobacco Use Types Packs/Day Years [...] How often do you attend cheondoism or judaism Patient refused 08/08/2019 services? Do [...] Keyona Cartagena RN - 05/13/2019 10:41 AM FINAL ASSEMBLY INSPECTOR Patient has refills remaining with requesting pharmacy. Keyona Palacios - Registered Nurse [facility] L ASSEMBLY INSPECTOR documented in this encounter Plan of Treatment Not on filedocumented as of this encounter Visit Diagnoses Diagnosis Chronic seasonal allergic rhinitis documented in this encounter Additional Health Concerns Assessment Noted Time PHQ-9 Depression Total Score: 10 01/02/2019 10:18 AM C DT documented as of this encounter Care Teams Electrical Project Engineer Relationship Specialty Start Date End Date Noreen Hills APRN APPLICATION TRAINER PCP - General Nurse Practitioner 01/09/19 12/12/21 [address] [facility] [place] [address] Noreen Hills APRN APPLICATION TRAINER Assigned PCP 06/16/18 [address] [facility] [place] [address] documented as of this encounter
--- OUTSIDE RECORDS SUMMARY | 2022-01-17 22:32 | XMS_ITS | Encounter Summary ---
:1965 Author Organization [place] Address [address] [place] [address] Care Team Providers Name Role Phone Vanda Guerrero MD Primary Care Provider [phone] Vanda Guerrero MD Unavailable Reason for Visit Reason Onset Date Comments Refill Request 12/04/2017 metFORMIN (GLUCOPHAG E) 500 MG tablet Encounter Details Date Type Department Care Team Description 12/04/2017 Refill [facility] Vanda Guerrero R efill Request Clinic [place] SALDANA (metFORMIN (GLUCOPHAGE) [address] [place] [address] [facility] 500 M G tablet) [facility] [address] [place] [address] [place] [address] [phone] Social History Tobacco Use Types Packs/Day Years [...] How often do you attend taoist or yazidism Patient refused 08/08/2019 services? Do [...] Requests new Rx, new pharmacy location at [address] [address] documented in this encounter Plan of Treatment Not on filedocumented as of this encounter Visit Diagnoses Diagnosis Type 2 diabetes mellitus without complic ation, without long-term current use of insulin (H) documented in this encounter Additional Health Concerns Assessment Noted Time PHQ-9 Depression Total Score: 12 06/12/2017 1:02 PM CS T documented as of this encounter Care Teams Telephonic Nurse Relationship Specialty Start Date End Date Vanda Guerrero MD PCP - General Internal Medicine 04/08/15 01/08/19 [address] [facility] [place] [address] Vanda Guerrero MD PCP - Assigned PCP 07/24/16 06/15/18 [address] [facility] [place] [address] documented as of this encounter
--- OUTSIDE RECORDS SUMMARY | 2022-01-17 22:32 | XMS_ITS | Encounter Summary ---
:1965 Author Organization [place] Address [address] [place] [address]. [place] [address] Care Team Providers Name Role Phone Vanda Guerrero MD Primary Care Provider [phone] Vanda Guerrero MD Unavailable Reason for Visit Reason Comments Consult mole/brown spot on shoulder, it is sore, crusted and now has been sensitive. Has had for a long time, and has been changing over the last 6-8 months Encounter Details Date Type Department Care Team Description 08/21/2017 Office Visit [facility] Vanda Fuentes of uncertain behavior of skin (Primary Dx); Clinic [place]ino Donnelly MD Solar lentiginosis [address] [place] [address] [facility] [address] [place] [address] [place] [address] [phone] Social History Tobacco Use Types Packs/Day Years [...] How often do you attend spiritism or church Patient refused 08/08/2019 services? Do [...] disease) ??? Obesity ??? Family history of AK (myocardial infarction) ??? Insomnia ??? Upper back [...] TOUCH DELICA) lancets ??? cholecalciferol (VITAMIN D3) 48655 UNITS capsule ??? order for DME ??? 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 Smoking status: [...] Component Value Ref Test Analysis Performed At [facility] [employer] Range Method Time Signature Copath Report Patient Name: PADMINI CHOI MR#: [id number] Specimen #: [id number] Collected: 08/21/2017 Received: 08/22/2017 Reported: 08/24/2017 15:20 [...] Electronically signed out by: Larry Andrea M.D., [facility] CLINICAL HISTORY: The patient is a 52-year-old [...] the deep mar gin. CPT Codes: A: 70673-CD2.T, 17166-KU7.P TESTING LAB LOCATION: [facility], [address] ?? 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
--- OUTSIDE RECORDS SUMMARY | 2022-01-17 22:32 | XMS_ITS | Encounter Summary ---
:1965 Author Organization [place] Address [address] [place] [address] Care Team Providers Name Role Phone Vanda Guerrero MD Primary Care Provider [phone] Vanda Guerrero MD Unavailable JeanaNoreen girard INSURANCE RATER RFID SYSTEMS ENGINEER Unavailable [phone] JeanaNoreen girard INSURANCE RATER RFID SYSTEMS ENGINEER Unavailable [phone] JeanaNoreen girard INSURANCE RATER RFID SYSTEMS ENGINEER Primary Care Provider [phone] Kalyan Galvan Unavailable Unavailable Lashae Trevino [facility] Unavailable [phone] Eduardo Sharma MD Unavailable Rios Monteiro MD Unavailable Marcelo Artis-C Unavailable [phone] Rodrigo Man-C Unavailable Reason for Visit Reason Comments Medication Refill ONETOUCH ULTRA test strip; s imvastatin (ZOCOR) 20 MG tablet Encounter Details Date Type Department Care Team Description 12/21/2017 Refill [facility] Vanda Guerrero M edication Refill Clinic [place]ino SALDANA (ONETOUCH ULTRA test [address] [place] [address]305 [facility] strip ; simvastatin [facility] (ZOCOR) 20 MG tablet) [address] [place] [address] [place] [phone] [phone] Social History Tobacco Use Types Packs/Day Years [...] How often do you attend judaism or caodaism Patient refused 08/08/2019 services? Do [...] 12/25/2017 10:56 AM CDT Pres[place] approved [facility] Refill Protocol. Day Greene RN, BSN Telephone Encounter - Kartik Javier [...] documented as of this encounter Care Teams Smt Machine Operator Relationship Specialty Start Date End Date Vanda Guerrero, PCP - General Internal Medicine 04/08/15 01/08/[address] [place] [address] [place] [address] Vanda Guerrero, PCP - Assigned PCP 07/24/16 [facility] [place] [address] Noreen Hills PCP - Assigned PCP 06/16/18 08/13/18 SEAN Haley RFID SYSTEMS ENGINEER [facility] [place] [address] Noreen Hills PCP - General Nurse Practitioner 01/09/19 12/12/21 SEAN Haley RFID SYSTEMS ENGINEER [facility] [place] [address] Noreen Hills Assigned PCP 06/16/18 SEAN Haley RFID SYSTEMS ENGINEER [address] [place] [address] [place] [phone] Kalyan Galvan Personal Advocate & 08/08/19 Liaison (PAL) Lashae Trevino Pharmacist Pharmacist 10/14/19 12/01/20 [facility] [address] [facility] [place] [address] Eduardo Sharma MD Assigned Sleep Provider 04/02/20 05/07/[address] [address] [place] [address] Rios Monteiro MD Assigned Musculoskeletal 04/02/20 08/24/[address] Provider [address] [place], [place] [address] Marcelo Artis Assigned Musculoskeletal 08/25/20 08/20/21 MIKAYLA Nuno Provider [address] [place], [place] [address] Rodrigo Man Assigned Surgical 08/25/2011/27 MIKAYLA Lacy Provider [address] [place] [address] documented as of this encounter
--- OUTSIDE RECORDS SUMMARY | 2022-01-17 22:32 | XMS_ITS | Encounter Summary ---
:1965 Author Organization [place] Address [facility] [place] [address] Care Team Providers Name Role Phone Vanda Guerrero MD Primary Care Provider [phone] Noreen Hills APRN CYLINDER DIE MACHINE OPERATOR Unavailable [phone] Reason for Referral Consultation (Routine) - Closed Specialty Diagnoses / Procedures Referred By Contact Refer red To Contact Diagnoses Fibromyalgia Kavin Fitzgerald ARTHRITIS & RHEUMATOLOGY [place] [address] [place], [place] [id number] [facility] [place] [address] [place] [address] Phone: [phone] Referral ID Status Reason Start Date Expiration Date Visits Requ ested Visits Authorized [id number] Closed 11/13/2018 11/13/2019 1 1 Reason for Visit Reason Comments Joint Pain Encounter Details Date Type Department Care Team Description 11/13/2018 Office Visit [facility] Kavin Fitzgerald Fibr omyalgia (Primary Clinic Pino Fernandez PA-C Dx) [address] [place] [address] [address] [place] [address] [place] [address] Social History Tobacco Use [...] often do you attend latter day or orthodox Patient refused 08/08/2019 services? Do [...] offered to her. 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 Review of Systems ROS COMP: otherwise NEGATIVE Objective BP 130/64 (BP Location: Right arm, Patient Position: Chair, Cuff Size: Adult Regular) Pulse 92 Temp 97.4 ??F (36.3 ??C) (Tympanic) Ht 1.575 m (5' 2) Wt 83.9 kg (185 lb) LMP 10/30/2011 ZpP595% BMI 33.84 kg/m?? Body mass index is [...] MG tablet, RHEUMATOLOGY REFERRAL Kavin Fitzgerald PA-C [facility] documented in this encounter Plan of Treatment Scheduled Referrals Name Type Priority Associated Diagnoses [facility] Referral Routine Fibromyalgia Ordere d: 11/13/2018 documented as of this encounter Visit Diagnoses Diagnosis Fibromyalgia - Primary Mylagia and myositis, unspecified documented in this encounter Additional Health Concerns Assessment Noted Time PHQ-9 Depression Total Score: 7 06/25/2018 9:49 AM SPECIAL NEEDS CAREGIVER documented as of this encounter Care Teams Lead Dental Assistant Relationship Specialty Start Date End Date Vanda Guerrero MD PCP - General Internal Medicine 04/08/15 01/08/19 [address] [facility] [place] [address] Noreen Hills APRN CYLINDER DIE MACHINE OPERATOR Assigned PCP 06/16/18 [address] [facility] [place] [address] documented as of this encounter
--- OUTSIDE RECORDS SUMMARY | 2022-01-17 22:32 | XMS_ITS | Encounter Summary ---
:1965 Author Organization [place] Address [address] [place] [address] Care Team Providers Name Role Phone Vanda Guerrero MD Primary Care Provider [phone] Noreen Hills APRN HIGH SCHOOL SCIENCE TUTOR Unavailable [phone] Reason for Visit Reason Comments Medication Refill omeprazole (PRILOSEC) 20 MG CR capsule Encounter Details Date Type Department Care Team Description 11/09/2018 Refill [facility] Vanda Guerrero M edication Refill Clinic Pino SALDANA (omeprazole (PRILOSEC) [address] [place] [address]305 [facility] 20 MG CR capsule) [facility] [address] [place] [address] [place] [address] [phone] Social History Tobacco Use Types Packs/Day Years [...] 11/11/2018 2:05 PM CDT Prescription approved per [facility] Refill Protocol. Shala Blackmon RN Telephone Encounter [...] Depression Total Score: 7 06/25/2018 9:49 AM OIL AND GAS EXPLORATION TECHNICIAN documented as of this encounter Care Teams Sql Report Analyst Relationship Specialty Start Date End Date Vanda Guerrero MD PCP - General Internal Medicine 04/08/15 01/08/[address] [place] [address] [place] [address] Noreen Hills APRN HIGH SCHOOL SCIENCE TUTOR Assigned PCP 06/16/18 [address] [facility] [place] [address] documented as of this encounter
--- OUTSIDE RECORDS SUMMARY | 2022-01-17 22:32 | XMS_ITS | Encounter Summary ---
:1965 Author Organization [place] Address [address] [place] [address] Care Team Providers Name Role Phone Vanda Guerrero MD Primary Care Provider [phone] Noreen Hills APRN CURTAIN WORKER Unavailable [phone] Reason for Referral [facility] (Routine) - Closed Specialty Diagnoses / Procedures Referred By Contact Refer red To Contact Diagnoses Acute pain of right shoulder Noreen Hills APRN CNP [address] [facility] [place] [address] Referral ID Status Reason Start Date Expiration Date Visits Requ ested Visits Authorized [id number] Closed 01/02/2019 06/10/2019 30 30 onsultation (Routine) - Closed Specialty Diagnoses / Procedures Referred By Contact Refer red To Contact Podiatry Diagnoses Left foot pain Noreen Hills M [facility] QUALITY CONTROL DIRECTOR CURTAIN WORKER [place] [address] [place] [address] [place] [phone] Fax: Referral ID Status Reason Start Date Expiration Date Visits Requ ested Visits Authorized [id number] Closed 01/02/2019 01/02/2020 1 1 ision Services (Routine) - Closed Specialty Diagnoses / Procedures Referred By Contact Refer red To Contact Diagnoses Type 2 diabetes mellitus with complication, without long-term current use of insulin (H) Noreen Hills M [facility] QUALITY CONTROL DIRECTORAngella ROSA JACLYN [address] [place] [address] DR Nevaeh Bass [place] [address] [address] [place] [address] Phone: Fax: Referral ID Status Reason Start Date Expiration Date Visits Requ ested Visits Authorized [id number] Closed 01/02/2019 01/02/2020 1 1 Reason for Visit Reason Comments Shoulder Pain Encounter Details Date Type Department Care Team Description 01/02/2019 Office Visit [facility] Noreen Hills APRN CNP [address] [place] [address] [place] [address] Fibromyalgia (Primary Dx); [facility] [place] 3a, Remberto Rn Pal Acute pain of right shoulder; [address] [place] [address] Left foot pain; [facility] Kali Type 2 diabetes mellitus wit [...] How often do you attend orthodoxy or muslim Patient refused 08/08/2019 services? Do [...] and Fibromayalgia) Lashawn Esquivel & Staci Arambula [phone] Have hubby call [facility] and ask about warm pool therapy or [...] warm water pool therapy at the in [place] (M25.511) Acute pain of right shoulder Comment: [...] Time Signature Occult Blood Negative NEG^Negati 02/01/2019 [facility] FIT ve 10:58 AM CDT [facility] Specimen Anatomical Collection Method Collection Time Receive d Time (Source) Location / / Volume Laterality Stool specimen 01/25/2019 7:35 AM 019 (specimen) CDT 10:01 AM CDT Noreen Hills APRN CURTAIN WORKER LAB - STOOLS ORDERABLES Performing Organization Address City/State/ZIP Code Phon e Number [facility] [address] [place], [place] [id number] [place] [address] (ABNORMAL) Hemoglobin A1c (01/02/2019 9:56 AM CDT) [...] Address City/State/ZIP Code Phon e Number [facility] JACLYN [address] [facility] [place] [address] [phone] documented in this encounter Visit Diagnoses Diagnosis [...] documented as of this encounter Care Teams Culture Manager Relationship Specialty Start Date End Date Vanda Guerrero MD PCP - General Internal Medicine 04/08/15 01/08/[address] [place] [address] [place] [address] Noreen Hills APRN CNP Assigned PCP 06/16/[address] [place] [address] [place] [address] documented as of this encounter
--- OUTSIDE RECORDS SUMMARY | 2022-01-17 22:32 | XMS_ITS | Encounter Summary ---
:1965 Author Organization [place] Address [address] [place] [address] Care Team Providers Name Role Phone Vanda Guerrero MD Primary Care Provider [phone] Vanda Guerrero MD Unavailable JeanaNoreen girard FIRE MARSHAL FACILITY ENGINEER Unavailable [phone] JeanaNoreen girard FIRE MARSHAL FACILITY ENGINEER Unavailable [phone] JeanaNoreen girard FIRE MARSHAL FACILITY ENGINEER Primary Care Provider [phone] Kalyan Galvan Unavailable Unavailable Lashae Trevino [facility] Unavailable [phone] Eduardo Sharma MD Unavailable Rios Monteiro MD Unavailable Marcelo Artis-C Unavailable [phone] Rodrigo Man-C Unavailable [phone] Reason for Visit Reason Comments Medication Refill zolpidem (AMBIEN) 5 MG table t Encounter Details Date Type Department Care Team Description 02/20/2018 Refill [facility] Vanda Guerrero M edication Refill Clinic [place] SALDANA (zolpidem (AMBIEN) 5 MG [address] [place] 3305 [facility] table t) [facility] [address] [place] [address] [place] [address] [phone] Social History Tobacco Use Types Packs/Day Years [...] How often do you attend nondenominational or voodoo Patient refused 08/08/2019 services? Do [...] and in station out basket or on MA/MACHINE SILK SCREEN PRINTER/RN desk Telephone Encounter - Gayathri Mcallister RN - 02/21/2018 3:33 PM CDT BINDERY MACHINE TENDER checked: patient refilled: 06/12, 07/07 and 10/04 [...] documented as of this encounter Care Teams Statistical Reporting Analyst Relationship Specialty Start Date End Date Vanda Guerrero, PCP - General Internal Medicine 04/08/15 01/08/[address] [place] [address] [place] [phone] Vanda Guerrero, PCP - Assigned PCP 07/24/16 [facility]15[facility] [place] [address] Noreen Hills PCP - Assigned PCP 06/16/18 08/13/18 SEAN Haley FACILITY ENGINEER [address] [facility] [place] [address] Noreen Hills PCP - General Nurse Practitioner 01/09/19 12/12/21 SEAN Haley FACILITY ENGINEER [address] [facility] [place] [address] Noreen Hills Assigned PCP 06/16/18 SEAN Haley FACILITY ENGINEER [address] [place] [address] Kalyan Galvan Personal Advocate & 08/08/19 Liaison (PAL) Lashae Trevino Pharmacist Pharmacist 10/14/19 12/01/20 Kiran [facility] [address] [place] [phone] Eduardo Sharma MD Assigned Sleep Provider 04/02/20 05/07/21 [address] [place] [address] Rios Monteiro MD Assigned Musculoskeletal 04/02/20 08/24/20 [address] [facility] [place] Provider [address] [place] [address] Marcelo Artis Assigned Musculoskeletal 08/25/20 08/20/21 MIKAYLA Nuno Provider [address] [facility] [address] [place] [address] Rodrigo Man Assigned Surgical 08/25/2011/27 MIKAYLA Lacy Provider [address] [place] [address] documented as of this encounter
--- OUTSIDE RECORDS SUMMARY | 2022-01-17 22:32 | XMS_ITS | Encounter Summary ---
:1965 Author Organization [place] Address [address] [place] [address] Care Team Providers Name Role Phone Vanda Guerrero MD Primary Care Provider [phone] Vanda Guerrero MD Unavailable JeanaNoreen girard PASSENGER SERVICE AGENT ACCESS SERVICES LIBRARIAN Unavailable [phone] JeanaNoreen girard PASSENGER SERVICE AGENT ACCESS SERVICES LIBRARIAN Unavailable [phone] JeanaNoreen girard PASSENGER SERVICE AGENT ACCESS SERVICES LIBRARIAN Primary Care Provider [phone] Kalyan Galvan Unavailable Unavailable Lashae Trevino [facility] Unavailable [phone] Eduardo Sharma MD Unavailable Rios Monteiro MD Unavailable Marcelo Artis-C Unavailable [phone] Rodrigo Man PA-C Unavailable Reason for Visit Reason Onset Date Comments Refill Request 03/04/2018 loratadine-pseudoePH EDrine ([facility] RELIEF-D) 10- 240 MG per 24 hr tablet Encounter Details Date Type Department Care Team Description 03/04/2018 Refill [facility] Vanda Guerrero R efill Request [facility] Pino SALDANA (loratadine-pseudoePHED [address] [place] [facility] RELIEF-D) 10-240 MG per [address] [place] [address] 24 hr tablet) [place] [phone] [phone] Social History Tobacco Use Types Packs/Day Years [...] and in station out basket or on MA/CHIEF DOG LICENSE INSPECTOR/RN desk Telephone Encounter - Kartik Javier - [...] documented as of this encounter Care Teams Backup Sawyer Relationship Specialty Start Date End Date Vanda Guerrero, PCP - General Internal Medicine 04/08/15 01/08/[address] [place] [address] [place] [address] Vanda Guerrero, PCP - Assigned PCP 07/24/16 06/15/[address] [place] [address] [place] [address] Noreen Hills PCP - Assigned PCP 06/16/18 08/13/18 SEAN Haley ACCESS SERVICES LIBRARIAN [address] [place] [address] [place] [address] Noreen Hills PCP - General Nurse Practitioner 01/09/19 12/12/21 SEAN Haley ACCESS SERVICES LIBRARIAN [address] [place] [address] [place] [address] Noreen Hills Assigned PCP 06/16/18 SEAN Haley ACCESS SERVICES LIBRARIAN [address] [place] [address] [place] [address] Kalyan Galvan Personal Advocate & 08/08/19 Liaison (PAL) Lashae Trevino Pharmacist Pharmacist 10/14/19 12/01/20 Kiran [facility] [address] [id number] Eduardo Sharma MD Assigned Sleep Provider 04/02/20 05/07/21 [address] [facility] [address] [place] [id number] Rios Monteiro MD Assigned Musculoskeletal 04/02/20 08/24/20 [address] [address] [facility] Provider [address] [place] [id number] Marcelo Artis Assigned Musculoskeletal 08/25/20 08/20/21 MIKAYLA Nuno Provider [address] [facility] [address] [place] [address] Rodrigo Man Assigned Surgical 08/25/2011/27 MIKAYLA Lacy Provider 6545 [facility] [address] [place], [place] [address] documented as of this encounter
--- OUTSIDE RECORDS SUMMARY | 2022-01-17 22:32 | XMS_ITS | Encounter Summary ---
:1965 Author Organization [place] Address [address] [place] [address] Care Team Providers Name Role Phone Vanda Guerrero MD Primary Care Provider [phone] Noreen Hills APRN CUFF TURNER MACHINE OPERATOR Unavailable [phone] Encounter Details Date Type Department Care Team [...] How often do you attend yarsanism or sabianist Patient refused 08/08/2019 services? Do [...] Depression Total Score: 7 06/25/2018 9:49 AM RIVET MACHINE OPERATOR documented as of this encounter Care Teams Medical Social Worker Relationship Specialty Start Date End Date Vanda Guerrero MD PCP - General Internal Medicine 04/08/15 01/08/[address] [place] [address] [place] [address] Noreen Hills APRN CUFF TURNER MACHINE OPERATOR Assigned PCP 06/16/18 [address] [facility] [place] [address] documented as of this encounter
--- OUTSIDE RECORDS SUMMARY | 2022-01-17 22:32 | XMS_ITS | Encounter Summary ---
:1965 Author Organization [place] Address [address] [place] [address] Care Team Providers Name Role Phone Vanda Guerrero MD Primary Care Provider [phone] Noreen Hills APRN FLUID DESIGNER Unavailable [phone] Reason for Visit Reason Comments Headache Encounter Details Date Type Department Care Team Description 08/29/2018 - Emergency [facility] [place], [place] Migrai ne without aura 08/30/2018 [facility] Emergency MD [place] and with status Dept [facility] migrainosus, not [address] [place], [place] [address] [address] [place], [place] [id number] [phone] (Wo rk) Social History Tobacco Use Types [...] How often do you attend temple or quaker Patient refused 08/08/2019 services? Do [...] capsule 8 capsule 0 017 01/02/2019 D3) 08878 UNITS (50,000 Units) by capsuleIndications: mouth once a week Vitamin D deficiency DULoxetine (CYMBALTA) 30 TAKE 1 CAPSULE (30 180 capsule 3 01/02/2019 MG EC capsuleIndications: MG) BY MOUTH 2 Fibromyalgia TIMES DAILY fluticasone (FLONASE) 50 [place] 1-2 sprays 3 Bottle 3 06/1208/07/2019 MCG/ACT [...] or confusion and I doubt stroke or PNEUMATIC TUBE OPERATOR tumor. I do not feel that advanced [...] observations and the provider's statements to me. [facility] EMERGENCY DEPARTMENT Troy Storey MD 09/01/18 0114 [...] 08/29/2018 08/30/2018 sodium chloride 0.9% infusion 2357 ([facility] eled Entry - Provider: Orders Generic Provider [...] Depression Total Score: 7 06/25/2018 9:49 AM CASEWORKER documented as of this encounter Care Teams Trash Collector Supervisor Relationship Specialty Start Date End Date Vanda Guerrero MD PCP - General Internal Medicine 04/08/15 01/08/19 [address] [facility] [place] [address] Noreen Hills APRN FLUID DESIGNER Assigned PCP 06/16/18 [address] [facility] [place] [address] documented as of this encounter
--- OUTSIDE RECORDS SUMMARY | 2022-01-17 22:32 | XMS_ITS | Encounter Summary ---
:1965 Author Organization [place] Address [address] [place] [address] Care Team Providers Name Role Phone Vanda Guerrero MD Primary Care Provider [phone] Vanda Guerrero MD Unavailable Reason for Visit Reason Onset Date Comments Refill Request 02/15/2018 methocarbamol (ROBAX IN) 500 MG tablet Encounter Details Date Type Department Care Team Description 02/15/2018 Refill [facility] Vanda Guerrero R efill Request Clinic [place] SALDANA (methocarbamol [address] [place] 3305 [facility] ([place] JESSICA) 500 MG [facility] DR tablet) [address] [place] [address] [place] [address] [phone] Social History Tobacco Use Types Packs/Day Years [...] How often do you attend religious or rastafari Patient refused 08/08/2019 services? Do [...] for review/approval because: Drug not on the [facility] ref[place] [facility] Telephone Encounter - Efren Pryor [...] documented as of this encounter Care Teams Merchant Mariner Relationship Specialty Start Date End Date Vanda Guerrero MD PCP - General Internal Medicine 04/08/15 01/08/[address] [place] [address] [place] [address] Vanda Guerrero MD PCP - Assigned PCP 07/24/16 06/15/[address] [place] [address] [place] [address] documented as of this encounter
--- OUTSIDE RECORDS SUMMARY | 2022-01-17 22:32 | XMS_ITS | Encounter Summary ---
:1965 Author Organization [place] Address [address] [place] [address] Care Team Providers Name Role Phone Vanda Guerrero MD Primary Care Provider [phone] Vanda Guerrero MD Unavailable Encounter Details [...] How often do you attend muslim or christianity Patient refused 08/08/2019 services? Do [...] of this encounter Care Teams Legal Secretary Receptionist Relationship Specialty Start Date End Date Vanda Guerrero MD PCP - General Internal Medicine 04/08/15 01/08/[address] [place] [address] [place] [address] Vanda Guerrero MD PCP - Assigned PCP 07/24/16 06/15/[address] [place] [address] [place] [address] documented as of this encounter
--- OUTSIDE RECORDS SUMMARY | 2022-01-17 22:32 | XMS_ITS | Encounter Summary ---
:1965 Author Organization [place] Address [address] [place] [address] Care Team Providers Name Role Phone Vanda Guerrero MD Primary Care Provider [phone] Noreen Hills APRN AIR INTELLIGENCE SPECIALIST Unavailable [phone] Encounter Details Date Type Department Care Team [...] How often do you attend protestant or methodist Patient refused 08/08/2019 services? Do [...] Depression Total Score: 7 06/25/2018 9:49 AM SECOND BUTLER documented as of this encounter Care Teams Parking Supervisor Relationship Specialty Start Date End Date Vanda Guerrero MD PCP - General Internal Medicine 04/08/15 01/08/[address] [place] [address] [place] [address] Noreen Hills APRN AIR INTELLIGENCE SPECIALIST Assigned PCP 06/16/18 3305 [facility] [place] [address] documented as of this encounter
--- OUTSIDE RECORDS SUMMARY | 2022-01-17 22:32 | XMS_ITS | Encounter Summary ---
:1965 Author Organization [place] Address [address] [place] [address] Care Team Providers Name Role Phone Vanda Guerrero MD Primary Care Provider [phone] Vanda Guerrero MD Unavailable Encounter Details Date Type Department Care Team Description 07/27/2017 Therapy Visit [place] [facility] Serena Blount rvicalgia (Primary Dx); Medicine [place] Cervical segment dysfunction 3305 [facility] [address] [place] [address] [place] [address] Social History Tobacco Use Types Packs/Day Years [...] How often do you attend hinduism or spiritism Patient refused 08/08/2019 services? Do [...] to feel looser post manipulation Procedures: CMT: 25958 Chiropractic manipulative treatment 1-2 regions performed Occiput: Gentle distraction-x10, C0, Supine Cervical: Gentle PtoA mob'sC4, T2, Supine NO rotary manipulation due to fusion C5-C7 Activator to right first rib Modalities: 20659: Acupuncture, for 15 minutes: Points: For neck [...] Follow-up: Return to care in one week. INE TAILER documented in this encounter Plan of Treatment Not on filedocumented as of this encounter Procedures Procedure Name Priority Date/Time Associated Diagnosis Comme nts HC ACUPUNCTURE, 1+ Routine 07/27/2017 10:08 AM Cervicalg ia NEEDLES, W/O ELECTRICAL MACHINE TAILER Cervical segment STIM; INIT 15 MIN dysfunction PERSONAL CONTACT [facility] CHIROPRAC Routine 07/27/2017 10:08 AM Cervicalgia MANIP,SPINAL,1-2 MACHINE TAILER Cervical segment REGIONS dysfunction documented in this encounter Visit Diagnoses Diagnosis Cervicalgia - Primary Cervical segment dysfunction Nonallopathic lesion of cervical region, not elsewhere classified documented in this encounter Additional Health Concerns Assessment Noted Time PHQ-9 Depression Total Score: 12 06/12/2017 1:02 PM CS T documented as of this encounter Care Teams Nurse Aide Relationship Specialty Start Date End Date Vanda Guerrero MD PCP - General Internal Medicine 04/08/15 01/08/19 3305 [facility] [place] [address] Vanda Guerrero MD PCP - Assigned PCP 07/24/16 06/15/18 3305 [facility] [place] [address] documented as of this encounter
--- OUTSIDE RECORDS SUMMARY | 2022-01-17 22:32 | XMS_ITS | Encounter Summary ---
:1965 Author Organization [place] Address [address] [place] [address] Care Team Providers Name Role Phone Vanda Guerrero MD Primary Care Provider [phone] Vanda Guerrero MD Unavailable Reason for Visit Reason Comments Medication Refill [facility] 24 HOUR 10- 240 MG per 24 hr tablet Encounter Details Date Type Department Care Team Description 08/01/2017 Refill [facility] Vanda Guerrero M edication Refill ([facility] [place] LORATADINE-D 24 HOUR [address] [place] 3305 [facility] 10-24 0 MG per 24 hr [facility] DR tablet) [address] [place] [address] [place] [address] [phone] Social History Tobacco Use Types Packs/Day Years [...] How often do you attend tenriism or adventist Patient refused 08/08/2019 services? Do [...] - Lori Weber - 08/06/2017 3:54 PM POLICE DETENTION ATTENDANT Faxed RX to patients pharmacy. Lori Weber MA CE DETENTION ATTENDANT Telephone Encounter - Vanda Guerrero MD - 08/06/2017 2:15 PM POLICE DETENTION ATTENDANT Script printed, signed, and in station out basket. R CE DETENTION ATTENDANT Telephone Encounter - Kirsten Casillas RN - 08/06/2017 1:44 PM CST Routing refill request to provider for review/approval because: Drug not on the [facility] refill protocol Kirsten Casillas, hand chain maker Nurse CE DETENTION ATTENDANT Telephone Encounter - Marisa Matthew - 08/01/2017 1:28 PM CST [facility] LOR[facility] 24 HOUR 10-240 MG per 24 hr tablet Last Written Prescription Date: Last Fill Quantity: 90, # refills: 1 Last Office Visit: 06/12/2017 Future Office visit: Routing refill request to provider for review/approval because: Drug not on the [facility], P or [facility] refill protocol or controlled substance CE DETENTION ATTENDANT documented in this encounter Plan of Treatment Not on filedocumented as of this encounter Visit Diagnoses Diagnosis Chronic seasonal allergic rhinitis, unsp ecified trigger documented in this encounter Additional Health Concerns Assessment Noted Time PHQ-9 Depression Total Score: 12 06/12/2017 1:02 PM CS T documented as of this encounter Care Teams Repossessor Relationship Specialty Start Date End Date Vanda Guerrero MD PCP - General Internal Medicine 04/08/15 01/08/[address] [place] [address] [place] [address] Vanda Guerrero MD PCP - Assigned PCP 07/24/16 06/15/[address] [place] [address] [place] [address] documented as of this encounter
--- OUTSIDE RECORDS SUMMARY | 2022-01-17 22:32 | XMS_ITS | Encounter Summary ---
:1965 Author Organization [place] Address [address] [place] [address] Care Team Providers Name Role Phone Vanda Guerrero MD Primary Care Provider [phone] Vanda Guerrero MD Unavailable Reason for Visit Reason Comments Medication Refill methocarbamol (ROBAXIN) 500 MG tablet Encounter Details Date Type Department Care Team Description 05/28/2018 Refill [facility] Vanda Guerrero M edication Refill Clinic Pino SALDANA (methocarbamol [address] [place] 3305 [facility] 500 MG [facility] [address] tablet) [address] [place] [address] [place] [address] [phone] Social History Tobacco Use Types Packs/Day Years [...] no refill protocol information for this order IOTHERAPY PRACTICE MANAGER documented in this encounter Plan of Treatment Not on filedocumented as of this encounter Visit Diagnoses Diagnosis Muscle spasm Spasm of muscle documented in this encounter Additional Health Concerns Assessment Noted Time PHQ-9 Depression Total Score: 8 02/18/2018 7:04 AM CDT documented as of this encounter Care Teams Collateral Clerk Relationship Specialty Start Date End Date Vanda Guerrero MD PCP - General Internal Medicine 04/08/15 01/08/19 [address]305 [facility] [place] [address] Vanda Guerrero MD PCP - Assigned PCP 07/24/16 06/15/18 [address] [facility] [place] [address] documented as of this encounter
--- OUTSIDE RECORDS SUMMARY | 2022-01-17 22:32 | XMS_ITS | Encounter Summary ---
:1965 Author Organization [facility] Address [address] [place] [address] Care Team Providers Name Role Phone Vanda Guerrero MD Primary Care Provider [phone] Noreen Hills NIPPLE MACHINE OPERATOR CONVEYOR CONSOLE OPERATOR Unavailable [phone] Reason for Visit Diagnostic Imaging Mammo - Closed Specialty Diagnoses / Procedures Referred By Contact Refer red To Contact Diagnoses Health care maintenance Noreen Hills, Procedures *MA Screening Digital Bilateral NIPPLE MACHINE OPERATOR CONVEYOR CONSOLE OPERATOR [address] [facility] [place] [address] Referral ID Status Reason Start Date Expiration Date Visits Requ ested Visits Authorized [id number] Closed 07/25/2018 07/25/2019 1 1 Encounter Details Date Type Department Care Team Description 09/03/2018 Ancillary Procedure M [facility] care Clinic Pino maintenance [address] [facility] [address] [place] [phone] Social History Tobacco Use Types Packs/Day Years [...] How often do you attend mosque or quaker Patient refused 08/08/2019 services? Do [...] Scattered fibroglandular densities. CLINICAL INFORMATION: Breast screening. ??[facility] care maintenance, 09/30/15, 04/16/15, 05/27/13 FINDINGS: Negative. Stable exam. Screeni ng exam in one year recommended. Procedure Note Stanislav Desir MD - 09/03/2018Formatt ing of this note might be different from the original. SCREENING MAMMOGRAM, BILATERAL, DIGITAL w/CAD, 09/03/2018 10:29 AM BREAST DENSITY: Scattered fibroglandular densities. CLINICAL INFORMATION: Breast screening. [facility], 09/30/15, 04/16/15, 05/27/13 FINDINGS: Negative. Stable exam. Screeni ng exam in one year recommended. IMPRESSION: BI-RADS CATEGORY: 1 - Negati ve. RECOMMENDED FOLLOW-UP: Annual Mammograph y. STANISLAV DESIR MD Noreen Hills APRN CONVEYOR CONSOLE OPERATOR IMG MAMMOGRAPHY ORDERAB LES documented in this encounter Visit Diagnoses Diagnosis Health care maintenance Unspecified general medical examination documented in this encounter Additional Health Concerns Assessment Noted Time PHQ-9 Depression Total Score: 7 06/25/2018 9:49 AM HEALTH AND WELLNESS COORDINATOR documented as of this encounter Care Teams Ux Design Lead Relationship Specialty Start Date End Date Vanda Guerrero MD PCP - General Internal Medicine 04/08/15 01/08/[address] [place] [address] [place] [address] Noreen Hills APRN CNP Assigned PCP 06/16/[address] [place] [address] [place] [address] documented as of this encounter
--- OUTSIDE RECORDS SUMMARY | 2022-01-17 22:32 | XMS_ITS | Encounter Summary ---
:1965 Author Organization [facility] Address [address] [place] [address] Care Team Providers Name Role Phone Vanda Guerrero MD Primary Care Provider [phone] Noreen Hills APRN CHOP SAW OPERATOR Unavailable [phone] Reason for Visit Reason Onset Date Comments Panel Management 12/09/2018 Encounter Details Date Type Department Care Team Description 12/09/2018 Telephone [facility] Noreen Hills Management Pino Haley APRN CHOP SAW OPERATOR [address] [facility] 3[address] [facility] [address] [place] [address] [place] [phone] Social History Tobacco Use Types Packs/Day Years [...] How often do you attend yarsanism or taoist Patient refused 08/08/2019 services? Do [...] with pre-visit labs. Type of outreach: Sent [place] Vacc[facility] message. Questions for provider review: None Christi Panda CMA Chart routed to Care Team . documented in this encounter Plan of Treatment Not on filedocumented as of this encounter Visit Diagnoses Not on filedocumented in this encounter Additional Health Concerns Assessment Noted Time PHQ-9 Depression Total Score: 7 06/25/2018 9:49 AM MANAGER LEARNING documented as of this encounter Care Teams Performance Reporter Relationship Specialty Start Date End Date Vanda Guerrero MD PCP - General Internal Medicine 04/08/15 01/08/19 [address] [facility] [place] [address] Noreen Hills APRN CHOP SAW OPERATOR Assigned PCP 06/16/[address] [place] [address] [place] [phone] documented as of this encounter
--- OUTSIDE RECORDS SUMMARY | 2022-01-17 22:32 | XMS_ITS | Encounter Summary ---
:1965 Author Organization [facility] Address [address] [place] [address] Care Team Providers Name Role Phone Vanda Guerrero MD Primary Care Provider [phone] Vanda Guerrero MD Unavailable Reason for Visit Reason Onset Date Comments Patient Request for Note/Letter 12/19/2017 Encounter Details Date Type Department Care Team Description 12/19/2017 Telephone [facility] Vanda Guerrero Patient Request for Clinic Pino Toribio MD Note/Letter [address] [place] [address] [facility] [address] [place] [address] [place] [address] [phone] Social History Tobacco Use Types Packs/Day Years [...] How often do you attend shinto or muslim Patient refused 08/08/2019 services? Do [...] provider. Pt will pickup at front end drupal developer downstairs. Telephone Encounter - Vanda Guerrero MD - 12/19/2017 3:04 PM CDT Letter printed, signed, and in station out basket or on MA/ELECTRICIAN OUTSIDE/RN desk Telephone Encounter - Lori Weber - [...] Sunday. Needs the letter ALLEN. (Company is [employer]) Detailed comments: Megan will picker tender when the letter is ready. Call her at below number when letter is ready. Phone Number Patient can be reached at: [phone] Best Time: Anytime Can we leave a [...] documented as of this encounter Care Teams Smash Hand Relationship Specialty Start Date End Date Vanda Guerrero MD PCP - General Internal Medicine 04/08/15 01/08/[address] [place] [address] [place] [address] Vanda Guerrero MD PCP - Assigned PCP 07/24/16 06/15/[address] [place] [address] [place] [address] documented as of this encounter
--- OUTSIDE RECORDS SUMMARY | 2022-01-17 22:32 | XMS_ITS | Encounter Summary ---
:1965 Author Organization [facility] Address [address] [place] [address] Care Team Providers Name Role Phone Vanda Guerrero MD Primary Care Provider [phone] Vanda Guerrero MD Unavailable Reason for Visit Reason Comments Medication Refill metFORMIN (GLUCOPHAGE) 500 M G tablet Encounter Details Date Type Department Care Team Description 12/08/[address] [facility] Vanda Guerrero M edication Refill Clinic Pino SALDANA (metFORMIN (GLUCOPHAGE) [address] [place] [address]305 [facility] 500 M G tablet) [facility] [address] [place] [address] [place] [address] [phone] Social History Tobacco Use Types Packs/Day Years [...] How often do you attend scientologist or sikhism Patient refused 08/08/2019 services? Do [...] month diabetes check Radha Manning RN -- [facility] Telephone Encounter - Kartik Javier - 12/08/2017 [...] documented as of this encounter Care Teams Gluer Relationship Specialty Start Date End Date Vanda Guerrero MD PCP - General Internal Medicine 04/08/15 01/08/19 [address] [facility] [place] [address] Vanda Guerrero MD PCP - Assigned PCP 07/24/16 06/15/18 [address] [facility] [place] [address] documented as of this encounter
--- OUTSIDE RECORDS SUMMARY | 2022-01-17 22:32 | XMS_ITS | Encounter Summary ---
:1965 Author Organization [facility] Address [address] [place] [address] Care Team Providers Name Role Phone Vanda Guerrero MD Primary Care Provider [phone] Vanda Guerrero MD Unavailable Reason for Visit Reason Comments Medication Refill blood glucose monitoring (ON E TOUCH ULTRA) test strip (Discontinued) Encounter Details Date Type Department Care Team Description 09/22/2017 Refill [facility] Vanda Guerrero M edication Refill Clinic Pino SALDANA (blood glucose [address] [place] 3305 [facility] monit oring (ONE TOUCH [facility] [address] [facility] [address] ULTRA) test strip [address] [place] [address] (Discontinued)) [place] [phone] Social History Tobacco Use Types Packs/Day Years [...] How often do you attend sabianist or samaritan Patient refused 08/08/2019 services? Do [...] 09/25/2017 9:58 AM CDT Prescription approved per [facility] Refill Protocol. Telephone Encounter - Efren Roldan [...] documented as of this encounter Care Teams Pump House Engineer Relationship Specialty Start Date End Date Vanda Guerrero MD PCP - General Internal Medicine 04/08/15 01/08/[address] [place] [address] [place] [address] Vanda Guerrero MD PCP - Assigned PCP 07/24/16 06/15/[address] [place] [address] [place] [address] documented as of this encounter
--- OUTSIDE RECORDS SUMMARY | 2022-01-17 22:32 | XMS_ITS | Encounter Summary ---
:1965 Author Organization [facility] Address [address] [place] [address] Care Team Providers Name Role Phone Vanda Guerrero MD Primary Care Provider [phone] Noreen Hills APRN BUSINESS OFFICE TECHNOLOGY INSTRUCTOR Unavailable [phone] Noreen Hills APRN BUSINESS OFFICE TECHNOLOGY INSTRUCTOR Unavailable [phone] Reason for Referral Diagnostic Imaging Mammo - Closed Specialty Diagnoses / Procedures Referred By Contact Refer red To Contact Diagnoses Health care maintenance Noreen Hills, Procedures *MA Screening Digital Bilateral [place] [address] [facility] [place] [address] Referral ID Status Reason Start Date Expiration Date Visits Requ ested Visits Authorized [id number] Closed 07/25/2018 07/25/2019 1 1 ING PLANT SUPERINTENDENT Reason for Visit Reason Comments Physical Encounter Details Date Type Department Care Team Description 07/25/2018 Office Visit [facility] Noreen Hills car e maintenance (Primary Dx); Clinic Pino Haley APRN Vitamin D deficiency; [address] [facility] Fibromyalgia; [address] [facility] Migraine without status migr ainosus, not intractable, unspecified migraine type; [address] [facility] Moderate episode of recurrent major depr essive disorder (H) [place] [address] [place] [phone] Social History Tobacco Use Types Packs/Day Years [...] How often do you attend episcopalian or buddhism Patient refused 08/08/2019 services? Do [...] Comments Blood Pressure 116/64 07/25/2018 4:30 PM HEATING PLANT SUPERINTENDENT Pulse 79 07/25/2018 4:30 PM HEATING PLANT SUPERINTENDENT Temperature 36.4 ??C (97.5 ??F) 07/25/2018 4:30 PM HEATING PLANT SUPERINTENDENT Respiratory Rate - - Oxygen Saturation 99% 07/25/2018 4:30 PM HEATING PLANT SUPERINTENDENT Inhaled Oxygen Concentration - - Weight 82.1 kg (181 lb) 07/25/2018 4:30 PM HEATING PLANT SUPERINTENDENT Height 157.5 cm (5' 2) 07/25/2018 4:30 PM HEATING PLANT SUPERINTENDENT Body Mass Index 33.11 07/25/2018 4:30 PM HEATING PLANT SUPERINTENDENT documented in this encounter Patient Instructions Patient InstructionsChristi Panda MA - 07/25/2018 4:20 PM CST Headaches: -Google rebound headaches -Consider magnesium OXALATE 500mg per day to reduce headaches -Consider B2 400mg -Aromatherapy -Guided relaxation -Stay on topiramate for now -Headache journal Fibro: Rheum nurse consultants Yoga Warm water pool-[facility] warm water pool Stop muscle relaxant cold [...] eye doctor every 1 to 2 years. ING PLANT SUPERINTENDENT documented in this encounter Progress Notes Noreen [...] NEG Negative Negative Test canceled - Lab industrial order clerk error(A) HPV 18 DNA NEG Negative Negative Test canceled - Lab industrial order clerk error(A) OTHER HR HPV NEG Negative Negative Test canceled - Lab industrial order clerk error(A) Reviewed and updated as [...] better nutrition discussed. She is motivated. Recommended [facility] warm water pool therapy -Start talk [...] Lung CA Screening Noreen Hills APRN CNP [facility] ING PLANT SUPERINTENDENT documented in this encounter Plan of Treatment Not on filedocumented as of this encounter Results Fecal colorectal cancer screen (FIT) (01/12/2020 8:00 AM CDT) Analysis Performed At Patho logist Time Signature Occult Blood Negative NEG^Negati 01/18/2020 [facility] FIT ve 4:19 PM CDT [facility] Specimen Anatomical Collection Method Collection Time Receive d Time (Source) Location / / Volume Laterality Stool specimen 01/12/2020 8:00 AM 020 1:16 (specimen) CDT PM CDT Noreen Hills APRN, CNP LAB - STOOLS ORDERABLES Performing Organization Address City/State/ZIP Code Phon e Number [facility] [address] [place], [place] [id number] [place] [address] *MA Screening Digital Bilateral (09/03/2018 10:13 AM [...] Scattered fibroglandular densities. CLINICAL INFORMATION: Breast screening. ??[facility] care maintenance, 09/30/15, 04/16/15, 05/27/13 FINDINGS: Negative. Stable exam. Screeni ng exam in one year recommended. Procedure Note Stanislav Desir MD - 09/03/2018Formatt ing of this note might be different from the original. SCREENING MAMMOGRAM, BILATERAL, DIGITAL w/CAD, 09/03/2018 10:29 AM BREAST DENSITY: Scattered fibroglandular densities. CLINICAL INFORMATION: Breast screening. [facility], 09/30/15, 04/16/15, 05/27/13 FINDINGS: Negative. Stable exam. Screeni ng exam in one year recommended. IMPRESSION: BI-RADS CATEGORY: 1 - Negati ve. RECOMMENDED FOLLOW-UP: Annual Mammograph y. STANISLAV DESIR MD N[place]en Hills APRN [facility] MAMMOGRAPHY ORDERAB LES documented in this [...] Depression Total Score: 7 06/25/2018 9:49 AM HEATING PLANT SUPERINTENDENT documented as of this encounter Care Teams Inseamer Relationship Specialty Start Date End Date Vanda Guerrero MD PCP - General Internal Medicine 04/08/15 01/08/[address] [place] [address] [place] [address] Noreen Hills APRN PCP - Assigned PCP 06/16/18 08/13/[address] [place] [address] Noreen Hills APRN Assigned PCP 06/16/[address] [place] [address] documented as of this encounter
--- OUTSIDE RECORDS SUMMARY | 2022-01-17 22:32 | XMS_ITS | Encounter Summary ---
:1965 Author Organization [facility] Address [address] [place] [address] Care Team Providers Name Role Phone Vanda Guerrero MD Primary Care Provider [phone] Noreen Hills APRN METAL TILE LATHER Unavailable [phone] Reason for Visit Reason Onset Date Comments Refill Request 10/20/2018 loratadine-pseudoePH EDrine ([facility] ALLERGY RELIEF-D) 10- 240 MG per 24 hr tablet Encounter Details Date Type Department Care Team Description 10/20/2018 Refill [facility] Vanda Guerrero R efill Request Clinic Pino SALDANA (loratadine-pseudoePHED [address] [place] [address] [facility] rine ([facility] DR RELIEF-D) 10-240 MG per [address] [place] [address] 24 hr tablet) [place] [address] [phone] Social History Tobacco Use Types Packs/Day Years [...] How often do you attend islam or muslim Patient refused 08/08/2019 services? Do [...] She would like it faxed to the [facility] in [employer] in [place]. Faxing now. Emily Horn CMA on 10/01/2018 at 9:32 AM Telephone Encounter - Vanda Guerrero MD - 10/22/2018 12:52 PM CDT Script printed, signed, and in station out basket or on MA/MACHINE SETTER SHEET METAL/RN desk Vanda Guerrero MD Internal Medicine - Pediatrics Telephone Encounter - Kimberlyn Martinez RN - 10/21/2018 5:50 PM CDT Claritin D Routing refill request to provider for review/approval because: Drug not on the [facility] refill protocol Kimberlyn Martinez RN, BSN Telephone [...] Last office visit: 07/25/2018 with prescribing provider: Noreen Hills APRN CNP Future Office Visit: Routing [...] Depression Total Score: 7 06/25/2018 9:49 AM POWER CHISEL OPERATOR documented as of this encounter Care Teams Sales Route Driver Relationship Specialty Start Date End Date Vanda Guerrero MD PCP - General Internal Medicine 04/08/15 01/08/[address] [place] [address] Noreen Hills, SEAN METAL TILE LATHER Assigned PCP 06/16/[address] [facility] [address] [address] [place], [place] [address] documented as of this encounter
--- OUTSIDE RECORDS SUMMARY | 2022-01-17 22:32 | XMS_ITS | Encounter Summary ---
:1965 Author Organization [facility] Address [address] [place] [address] Care Team Providers Name Role Phone Vanda Guerrero MD Primary Care Provider [phone] No[place] Hills APRN OPTICAL GLASS INSPECTOR Unavailable [phone] N[place]en Hills APRN OPTICAL GLASS INSPECTOR Unavailable [phone] Encounter Details Date Type Department Care Team [...] How often do you attend shinto or jain Patient refused 08/08/2019 services? Do [...] Depression Total Score: 7 06/25/2018 9:49 AM SENIOR MOBILE WEB DEVELOPER documented as of this encounter Care Teams Rivet Flunky Relationship Specialty Start Date End Date Vanda Guerrero MD PCP - General Internal Medicine 04/08/15 01/08/[address] [place] [address] [place] [address] Noreen Hills APRN PCP - Assigned PCP 06/16/18 08/13/[address] [place] [address] Noreen Hills APRN Assigned PCP 06/16/[address] [place] [address] documented as of this encounter
--- OUTSIDE RECORDS SUMMARY | 2022-01-17 22:32 | XMS_ITS | Encounter Summary ---
:1965 Author Organization [facility] Address [address] [place] [address] Care Team Providers Name Role Phone Vanda Guerrero MD Primary Care Provider [phone] Noreen Hills APRN UNIVERSITY PRESIDENT Unavailable [phone] N[place]en Hills APRN UNIVERSITY PRESIDENT Unavailable [phone] Encounter Details Date Type Department Care [...] How often do you attend rastafari or faith Patient refused 08/08/2019 services? Do [...] Depression Total Score: 7 06/25/2018 9:49 AM FINANCIAL SERVICES SPECIALIST documented as of this encounter Care Teams Ic Design Engineer Relationship Specialty Start Date End Date Vanda Guerrero MD PCP - General Internal Medicine 04/08/15 01/08/[address] [place] [address] [place] [address] Noreen Hills APRN PCP - Assigned PCP 06/16/18 08/13/[address] [place] [address] Noreen Hills APRN Assigned PCP 06/16/[address] [place] [address] documented as of this encounter
--- OUTSIDE RECORDS SUMMARY | 2022-01-17 22:32 | XMS_ITS | Encounter Summary ---
:1965 Author Organization [facility] Address [address] [place] [address] Care Team Providers Name Role Phone Vanda Guerrero MD Primary Care Provider [phone] Vanda Guerrero MD Unavailable Reason for Visit Reason Comments Medication Refill omeprazole (PRILOSEC) 20 MG CR capsule Encounter Details Date Type Department Care Team Description 10/31/2017 Refill [facility] Vanda Guerrero M edication Refill Clinic Pino SALDANA (omeprazole (PRILOSEC) [address] [place] 3305 [facility] 20 MG CR capsule) [facility] [address] [place] [address] [place] [address] [phone] Social History Tobacco Use Types Packs/Day Years [...] How often do you attend evangelical or jew Patient refused 08/08/2019 services? Do [...] 10/31/2017 9:08 AM CDT Prescription approved per [facility] Refill Protocol. Telephone Encounter - Marisa Matthew [...] documented as of this encounter Care Teams Tumbler Drier Operator Relationship Specialty Start Date End Date Vanda Guerrero MD PCP - General Internal Medicine 04/08/15 01/08/19 [address] [facility] [place] [address] Vanda Guerrero MD PCP - Assigned PCP 07/24/16 06/15/18 [address] [facility] [place] [address] documented as of this encounter
--- OUTSIDE RECORDS SUMMARY | 2022-01-17 22:32 | XMS_ITS | Encounter Summary ---
:1965 Author Organization [facility] Address [address] [place] [address] Care Team Providers Name Role Phone Vanda Guerrero MD Primary Care Provider [phone] Noreen Hills APRN FINANCE INSURANCE MANAGER Unavailable [phone] N[place]en Hills APRN FINANCE INSURANCE MANAGER Unavailable [phone] Reason for Visit Reason Comments Diabetes Encounter Details Date Type Department Care Team Description 06/25/2018 Office Visit [facility] Noreen Hills Abnormal l eg movement (Primary Dx); Clinic Pino Haley APRN Constipation, unspecified co nstipation type; [address] [place] FINANCE INSURANCE MANAGER Anxiety; [address] [facility] Persistent insomnia; [address] [facility] [address] Moderate episode of recurrent major depr essive disorder (H); [place] [address] [place] [address] Fibromyalgia; [phone] Migraine withou t status migrainosus, not intractable, unspecified migraine type; (Work) Type 2 diabetes mellitus with complicati on, without long-term current use of insulin (H); [phone] Hyperlipidemia LDL goal <100; (Fax) Morbid obesity [...] How often do you attend yazidi or faith Patient refused 08/08/2019 services? Do you belong to any clubs or organizations such as No 08/08/2019 yazidi groups, [employer], fraternal or athletic groups, or school groups? [...] Comments Blood Pressure 114/58 06/25/2018 9:50 AM LOOM REPAIRER Pulse 72 06/25/2018 9:50 AM LOOM REPAIRER Temperature 36.7 ??C (98 ??F) 06/25/2018 9:50 AM LOOM REPAIRER Respiratory Rate - - Oxygen Saturation 99% 06/25/2018 9:50 AM LOOM REPAIRER Inhaled Oxygen Concentration - - Weight 82.1 kg (181 lb 1.6 oz) 06/25/2018 9:50 AM LOOM REPAIRER Height 157.5 cm (5' 2) 06/25/2018 9:50 AM LOOM REPAIRER Body Mass Index 33.12 06/25/2018 9:50 AM LOOM REPAIRER documented in this encounter Patient Instructions Patient InstructionsMoliNoreen stone APRN CNP - 06/25/2018 9:40 AM LOOM REPAIRER 1. See if covered. [facility] (Chronic Pain, Rheumatology, and Fibromayalgia) Lashawn Esquivel & Staci Arambula [phone] 2. Same dose of Cymbalta. Cut Celexa in half (just take 10mg). Hopefully this will help with the legmovements but not worsen anxiety. 3. For constipation. Start fiber capsules. Start with 1 capsule and a big glass of water in the morning. Then increase to 2 capsules with a big glass of water in the afternoon. Message me if this isn'tworking. REPAIRER documented in this encounter Progress Notes Noreen [...] (FIT), *MA Screening Digital Bilateral TONY Schneider-DNP. REPAIRER documented in this encounter Plan of Treatment [...] Depression Total Score: 7 06/25/2018 9:49 AM LOOM REPAIRER documented as of this encounter Care Teams Concrete Paving Supervisor Relationship Specialty Start Date End Date Vanda Guerrero MD PCP - General Internal Medicine 04/08/15 01/08/[address] [place] [address] [place] [address] Noreen Hills APRN PCP - Assigned PCP 06/16/18 08/13/[address] [place] [address] Noreen Hills APRN Assigned PCP 06/16/[address] [place] [address] documented as of this encounter
--- OUTSIDE RECORDS SUMMARY | 2022-01-17 22:32 | XMS_ITS | Encounter Summary ---
:1965 Author Organization [facility] Address [address] [place] [address] Care Team Providers Name Role Phone Vanda Guerrero MD Primary Care Provider [phone] Noreen Hills APRN RELIGIOUS EDUCATOR Unavailable [phone] Encounter Details Date Type Department Care Team Description 11/13/2018 Travel Social History Tobacco Use Types Packs/Day [...] How often do you attend yazidism or methodist Patient refused 08/08/2019 services? Do [...] Depression Total Score: 7 06/25/2018 9:49 AM FOUNTAIN VENDING MECHANIC documented as of this encounter Care Teams Stock Broker Supervisor Relationship Specialty Start Date End Date Vanda Guerrero MD PCP - General Internal Medicine 04/08/15 01/08/[address] [place] [address] [place] [address] Noreen Hills APRN RELIGIOUS EDUCATOR Assigned PCP 06/16/18 [address] [facility] [place] [address] documented as of this encounter
--- OUTSIDE RECORDS SUMMARY | 2022-01-17 22:32 | XMS_ITS | Encounter Summary ---
:1965 Author Organization [place] Address [address] [place] [address] Care Team Providers Name Role Phone Vanda Guerrero MD Primary Care Provider [phone] Vanda Guerrero MD Unavailable Reason for Visit Reason Onset Date Comments Refill Request 02/15/2018 topiramate (TOPAMAX) 50 MG tablet Refill Request 02/15/2018 citalopram (CELEXA) 20 MG tablet Encounter Details Date Type Department Care Team Description 02/15/2018 Refill [facility] Vanda Guerrero R efill Request Clinic [place] (topiramate (TOPAMAX) [address] [facility] 50 MG tablet); Refill [facility] [address] Request (citalopram [address] [place] [address] (CELEXA) 20 MG tablet) [place] [id number] [phone] Social History Tobacco Use Types Packs/Day Years [...] How often do you attend yazdanism or mandaen Patient refused 08/08/2019 services? Do [...] of protocol range. Thea Gonzalez RN BSN [facility] [phone] Telephone Encounter - Liya Gonzalez RN - 02/17/2018 9:25 PM CDT phq9 sent via Infinit. Topiramate dx is Fibromyalgia and obesity Thea Gonzalez RN BSN [facility] [phone] Telephone Encounter - Efren Pryor - 02/15/2018 [...] HCT 38.1 PLT 229 For GICH ONLY: [id number] = WBC, [id number] = RBC Passed - Normal ALT or [...] as of this encounter Care Teams Utility Locate Technician Relationship Specialty Start Date End Date Vanda Guerrero MD PCP - General Internal Medicine 04/08/15 01/08/19 [address] [facility] [place] [address] Vanda Guerrero MD PCP - Assigned PCP 07/24/16 06/15/18 [address] [facility] [place] [address] documented as of this encounter
--- OUTSIDE RECORDS SUMMARY | 2022-01-17 22:32 | XMS_ITS | Encounter Summary ---
:1965 Author Organization [place] Address [address] [place] [address] Care Team Providers Name Role Phone Vanda Guerrero MD Primary Care Provider [phone] Vanda Guerrero MD Unavailable Reason for Visit Reason Comments Medication Refill metFORMIN (GLUCOPHAGE) 500 M G tablet Encounter Details Date Type Department Care Team Description 05/23/[address] [facility] Vanda Guerrero M edication Refill Clinic [place] (metFORMIN (GLUCOPHAGE) [address] [place] [address] [facility] 500 M G tablet) [facility] [address] [place] [address] [place] [address] [phone] Social History Tobacco Use Types Packs/Day Years [...] How often do you attend mormonism or caodaism Patient refused 08/08/2019 services? Do [...] - Lori Weber - 06/03/2018 8:18 AM MEAT SOAKER Type of outreach: Phone, spoke to patient. [...] PLANNING Q5 YRS 2018 Lori Weber MA SOAKER Telephone Encounter - Adali Pierson - 05/27/2018 2:45 PM CST LVM for patient to callback. Thanks Chema Allan Team Coodinator SOAKER Telephone Encounter - Gayathri Mcallister RN - 05/27/2018 11:47 AM MEAT SOAKER TC-please call patient to schedule: Return in about 1 week (around 04/16/2018) for Establish care/DM with Florentino, then to lab, please ask if she wants flu. Prescription approved per [facility] Refill Protocol. Gayathri Mcallister RN Message handled by Nurse Triage. SOAKER Telephone Encounter - Marisa Matthew - 05/23/2018 [...] & Orders section of the refill encounter. SOAKER documented in this encounter Plan of Treatment Not on filedocumented as of this encounter Visit Diagnoses Diagnosis Type 2 diabetes mellitus without complic ation, without long-term current use of insulin (H) documented in this encounter Additional Health Concerns Assessment Noted Time PHQ-9 Depression Total Score: 8 02/18/2018 7:04 AM CDT documented as of this encounter Care Teams Bicycle Racer Relationship Specialty Start Date End Date Vanda Guerrero MD PCP - General Internal Medicine 04/08/15 01/08/19 [address] [facility] [place] [address] Vanda Guerrero MD PCP - Assigned PCP 07/24/16 06/15/18 [address] [facility] [place] [address] documented as of this encounter
--- OUTSIDE RECORDS SUMMARY | 2022-01-17 22:33 | XMS_ITS | Encounter Summary ---
:1965 Author Organization [place] Address [address] [place] [address] Care Team Providers Name Role Phone Vanda Guerrero MD Primary Care Provider [phone] Vanda Guerrero MD Unavailable Reason for Referral [facility] - Closed Specialty Diagnoses / Procedures Referred By Contact Refer red To Contact Diagnoses Rosalia Pagan APRN CNP [facility] [address] [place] [address] Referral ID Status Reason Start Date Expiration Date Visits Requ ested Visits Authorized [id number] Closed 06/27/2017 06/27/2018 1 1 UELS PRODUCT DEVELOPMENT MANAGER Diagnostic Imaging MRI - Closed Specialty Diagnoses / Procedures Referred By Contact Refer red To Contact Radiology. Diagnoses Rosalia Pagan APRN Mri Procedures MR Cervical Spine w/o Contrast ANESTHESIA ATTENDING [address] [facility] [place], [place] [address] [address] [place] [address] Referral ID Status Reason Start Date Expiration Date Visits Requ ested Visits Authorized [id number] Closed 06/27/2017 06/27/2018 1 1 UELS PRODUCT DEVELOPMENT MANAGER Diagnostic Imaging XR - Closed Specialty Diagnoses / Procedures Referred By Contact Refer red To Contact Diagnoses Cervicalgia Rosalia Main APRN Procedures XR Cervical Spine 2/3 Views [facility] [address] [place] [address] Referral ID Status Reason Start Date Expiration Date Visits Requ ested Visits Authorized [id number] Closed 06/27/2017 06/27/2018 1 1 UELS PRODUCT DEVELOPMENT MANAGER Reason for Visit Reason Comments Neurologic Problem DDD, Cervical radiates down the right side into the right shoulder more than left down to the e lbow, patient has hand numbness and tingling at times weakness, has had previous surgery with Dr. Brandt in 2000 Encounter Details Date Type Department Care Team Description 06/27/2017 Office Visit [facility] Rosalia Main Cervical bola (Primary [facility] Neurosurgery SEAN Angeles CN P Dx) [facility] [address] [facility] [address] [place] [address] [phone] Social History Tobacco Use Types Packs/Day Years [...] How often do you attend yarsanism or holiness Patient refused 08/08/2019 services? Do [...] Comments Blood Pressure 124/77 06/27/2017 10:03 AM BIOFUELS PRODUCT DEVELOPMENT MANAGER Pulse 83 06/27/2017 10:03 AM BIOFUELS PRODUCT DEVELOPMENT MANAGER Temperature - - Respiratory Rate - - Oxygen Saturation 97% 06/27/2017 10:03 AM BIOFUELS PRODUCT DEVELOPMENT MANAGER Inhaled Oxygen Concentration - - Weight 90.7 kg (200 lb) 06/27/2017 10:03 AM BIOFUELS PRODUCT DEVELOPMENT MANAGER Height 157.5 cm (5' 2) 06/27/2017 10:03 AM BIOFUELS PRODUCT DEVELOPMENT MANAGER Body Mass Index 36.58 06/27/2017 10:03 AM BIOFUELS PRODUCT DEVELOPMENT MANAGER documented in this encounter Patient Instructions Patient InstructionsSchmidtRosalia APRN ANESTHESIA ATTENDING - 06/27/2017 10:00 AM BIOFUELS PRODUCT DEVELOPMENT MANAGER 1. Please call [facility] Radiology to have cervical MRI completed. Call [phone]. I will contact you with results. 2. Cervical xray today 3. Please schedule your prompt care rn with [facility] UELS PRODUCT DEVELOPMENT MANAGER documented in this encounter Progress Notes Rosalia Main APRN CNP - 06/27/2017 10:[address] Raoul Danielson [facility] Neurosurgery Clinic Visit CC: neck and arm pain Primary care Provider: Vanda Guerrero Reason For Visit: I was asked by Dr. Guerrero to consult on the patient for cervical radicular pain. HPI: Megan Choi is a 52 year old female with cervical radicular pain. She notes that she hadC5-7 fusion in 2000 at [facility]. We are in the process of obtaining [...] TOUCH DELICA) lancets ??? cholecalciferol (VITAMIN D3) 45529 UNITS capsule ??? order for DME ??? [...] Relation Age of Onset ??? Cardiovascular Mother [place] age 72 ??? DIABETES Mother Type II ??? Hypertension Mother ??? Lipids Mother ??? Arthritis Mother OA ??? KIDNEY DISEASE Mother 70 ??? Cardiovascular Father [place] early 40s, subsequent bipass ??? Hypertension Father [...] notes that she hadC5-7fusion in 2000 at [facility]. We are in the process of obtaining [...] to this. We will have her try prompt care rn as well through [facility]. She is open to this. Patient Instructions 1. Please call [facility] Radiology to have cervical MRI completed. Call [phone]. I will contact you with results. 2. Cervical xray today 3. Please schedule your prompt care rn with [facility] Main C[facility] [address] [place] [address] Pager [phone] UELS PRODUCT DEVELOPMENT MANAGER documented in this encounter Plan of Treatment Scheduled Referrals Name Type Priority Associated Diagnoses Order S chedule [facility] PT, HAND, AND Referral Routine Cervicalgia Ordered: 0 06/27/2017 CHIROPRACTIC REFERRAL documented as of this encounter Results MR Cervical Spine w/o Contrast (06/28/2017 1:36 PM BIOFUELS PRODUCT DEVELOPMENT MANAGER) Anatomical Region Laterality Modality Spine, SUBRAD MR NEURO, UMP MR SPINE, RAD MR Magnetic Resonance Specimen (Source) Anatomical Location Collection Method / Collectio n Time Received Time / Laterality Volume Impressions 06/28/2017 2:37 PM BIOFUELS PRODUCT DEVELOPMENT MANAGER IMPRESSION: ?? 1. Anterior fusion at C5-C6 [...] MILAGROS JC MD Narrative 06/28/2017 2:37 PM BIOFUELS PRODUCT DEVELOPMENT MANAGER MRI CERVICAL SPINE WITHOUT CONTRAST June 28, [...] level. MILAGROS JC MD Rosalia Main APRN ANESTHESIA ATTENDING IMG MRI ORDERABLES XR Cervical Spine 2/3 Views (06/27/2017 10:30 AM BIOFUELS PRODUCT DEVELOPMENT MANAGER) Anatomical Region Laterality Modality Spine Computed Radiography Specimen (Source) Anatomical Location Collection Method / Collectio n Time Received Time / Laterality Volume Impressions 06/27/2017 4:33 PM BIOFUELS PRODUCT DEVELOPMENT MANAGER IMPRESSION: Flexion and extension lateral views only. 1 mm anterolisthesis C2 on C3 and C4 on C5. T hese levels reduce with extension. Anterior interbody fusion C5- C7 appears solid with normal alignment. Degenerative disc space narro wing C3-4. No acute bony or soft tissue abnormality in the lateral v iew. ROHAN PINK MD Narrative 06/27/2017 4:33 PM BIOFUELS PRODUCT DEVELOPMENT MANAGER CERVICAL SPINE TWO - THREE VIEWS 06/27/2017 [...] iew. ROHAN PINK MD Rosalia Karthik Main BRICK PAVING CHECKER ANESTHESIA ATTENDING IMG DIAGNOSTIC IMAGING DAMASO MIRAMONTES documented in this encounter Visit Diagnoses Diagnosis Cervicalgia - Primary Cervicalgia Cervicalgia documented in this encounter Additional Health Concerns Assessment Noted Time PHQ-9 Depression Total Score: 12 06/12/2017 1:02 PM CS T documented as of this encounter Care Teams Adobe Architect Relationship Specialty Start Date End Date Vanda Guerrero MD PCP - General Internal Medicine 04/08/15 01/08/19 [address] [facility] [place] [address] Vanda Guerrero MD PCP - Assigned PCP 07/24/16 06/15/18 [address] [facility] [place] [address] documented as of this encounter
--- OUTSIDE RECORDS SUMMARY | 2022-01-17 22:33 | XMS_ITS | Encounter Summary ---
:1965 Author Organization [place] Address [address] [place] [address] Care Team Providers Name Role Phone Vanda Borja MD Primary Care Provider [phone] Vanda Borja MD Unavailable Encounter Details Date Type Department Care Team Description 02/17/2017 Orders Only [facility] Thea vated alkaline phosphatase level; [facility] Hypernatremia; [address] [place] Vitamin D deficiency; [address] Hyperlipidemia LDL [...] How often do you attend nondenominational or oriental orthodox Patient refused 08/08/2019 services? [...] 67 (H) 0 - 40 U/L 02/20/2017 [facility] 7:47 AM CDT [facility] Specimen Anatomical Collection Method Collection Time Receive d Time (Source) Location / / Volume Laterality Blood specimen 02/17/2017 9:13 AM 017 8:18 (specimen) CDT PM CDT Vanda Borja MD LAB - BLOOD ORDERABLES Performing Organization Address City/State/ZIP Code Phon e Number [facility] [address] [place] [address] (ABNORMAL) Lipid panel reflex to direct LDL (02/17/2017 9:13 AM CDT) athologist Signature Cholesterol 178 <200 mg/dL 02/17/2017 [facility] 2:14 PM CDT [facility] Triglycerides 121 <150 mg/dL 02/17/2017 [facility] CS 2:14 PM CDT [facility] Comment: Fasting specimen HDL Cholesterol 43 (L) >49 mg/dL 02/17/2017 2:14 PM [facility] CDT [facility] LDL Cholesterol 111 (H) <100 mg/dL 02/17/2017 2:14 PM [facility] Calculated CDT [facility] Comment: Above desirable: ??100-129 mg/dl Borderline High: ??130-159 mg/dL High: ? 160-189 mg/dL Very high: ? >189 mg/dl Non HDL Cholesterol 135 (H) <130 mg/dL 02/17/2017 2:14 PM [facility] CDT [facility] Comment: Above Desirable: ??130-159 mg/dl Borderline high: ??160-189 mg/dl High: ? 190-219 mg/dl Very high: ? >219 mg/dl Specimen Anatomical Collection Method Collection Time Receive d Time (Source) Location / / Volume Laterality Blood specimen 02/17/2017 9:13 AM 017 9:18 (specimen) CDT AM CDT Vanda Borja MD LAB - BLOOD ORDERABLES Performing Organization Address City/State/ZIP Code Phon e Number [facility] [address] [place] [address] Vitamin D Deficiency (02/17/2017 9:13 AM CDT) athologist Signature Vitamin D 33 20 - 75 02/19/2017 [facility] ug/L 2:25 PM CDT [facility] Comment: Season, race, dietary intake, and treatm ent affect the concentration of 08-tmjrcpl-Ywjnfnp D. Values may decreas e during winter [...] Phon e Number [facility] [address] [place] [address] [facility] (ABNORMAL) Comprehensive metabolic panel (02/17/2017 9:13 AM CDT) Analysis Performed At Patho logist Time Signature Sodium 145 (H) 133 - 144 02/17/2017 [place] mmol/L 2:[address] [facility] Potassium 3.9 3.4 - 5.3 02/17/2017 [place] mmol/L 2:[address] [facility] Chloride 111 (H) 94 - 109 02/17/2017 [place] mmol/L 2:[address] [facility] Carbon Dioxide 28 20 - 32 02/17/2017 [place] mmol/L 2:[address] [facility] Anion Gap 6 3 - 14 02/17/2017 [place] mmol/L 2:[address] [facility] Glucose 137 (H) 70 - 99 02/17/2017 [place] mg/dL 2:[address] [facility] Comment: Fasting specimen Urea Nitrogen 12 7 - 30 mg/dL 02/17/2017 2:14 PM T [facility] Creatinine 0.75 0.52 - 1.04 mg/dL 02/17/2017 2:14 PM CD T [facility] GFR Estimate 80 >60 mL/min/1.7m2 02/17/2017 2:14 PM C DT [facility] Comment: Non GFR Calc GFR Estimate If >90 >60 mL/min/1.7m2 02/17/2017 2:14 P M [facility] Black [facility] Comment: GFR Calc Calcium 9.1 8.5 - 10.1 02/17/2017 2:14 PM [facility] mg/dL [facility] Bilirubin Total 0.5 0.2 - 1.3 02/17/2017 2:14 PM [facility] mg/dL [facility] Albumin 3.5 3.4 - 5.0 g/dL 02/17/2017 2:14 PM [facility] Protein Total 7.3 6.8 - 8.8 g/dL 02/17/2017 2:14 PM [facility] Alkaline Phosphatase 169 (H) 40 - 150 U/L 02/17/2017 2:14 PM [facility] ALT 32 0 - 50 U/L 02/17/2017 2:14 PM [facility] CDT [facility] AST 17 0 - 45 U/L 02/17/2017 2:14 PM [facility] CDT [facility] Specimen Anatomical Collection Method Collection Time Receive d Time (Source) Location / / Volume Laterality Blood specimen 02/17/2017 9:13 AM 017 9:18 (specimen) CDT AM CDT Vanda Borja MD LAB - BLOOD ORDERABLES Performing Organization Address City/State/ZIP Code Phon e Number [facility] [address] [place] [address] documented in this encounter Visit Diagnoses Diagnosis Elevated alkaline phosphatase level Other nonspecific abnormal serum enzyme levels Hypernatremia Hyperosmolality and/or hypernatremia Vitamin D deficiency Unspecified vitamin D deficiency Hyperlipidemia LDL goal <100 Other and unspecified hyperlipidemia documented in this encounter Additional Health Concerns Assessment Noted Time PHQ-9 Depression Total Score: 9 10/12/2016 7:16 AM CDT documented as of this encounter Care Teams Manager Title Relationship Specialty Start Date End Date Vanda Borja MD PCP - General Internal Medicine 04/08/15 01/08/19 [address] [facility] [place] [address] Vanda Borja MD PCP - Assigned PCP 07/24/16 06/15/18 [address] [facility] [place] [address] documented as of this encounter
--- OUTSIDE RECORDS SUMMARY | 2022-01-17 22:33 | XMS_ITS | Encounter Summary ---
:1965 Author Organization [place] Address [facility] [place] [address] Care Team Providers Name Role Phone Vanda Guerrero MD Primary Care Provider [phone] Vanda Guerrero MD Unavailable Reason for Referral - Closed Specialty Diagnoses / Procedures Referred By Contact Refer red To Contact Diagnoses Cervical radiculopathy Jim Wang Procedures NO CHARGE ANDREEA Taylor MD [address] [place] [address] Referral ID Status Reason Start Date Expiration Date Visits Requ ested Visits Authorized [id number] Closed 07/10/2017 07/10/2018 1 1 H HEAD MAKER Reason for Visit Reason Comments Pain - Closed Specialty Diagnoses / Procedures Referred By Contact Refer red To Contact Diagnoses Cervical facet joint syndrome Rosalia Main APRN DAIRY PRODUCTS MAKER [facility] [address] [place] [address] Referral ID Status Reason Start Date Expiration Date Visits Requ ested Visits Authorized [id number] Closed 06/29/2017 06/29/2018 1 1 Encounter Details Date Type Department Care Team Description 07/10/2017 Radiology [facility] Rosalia Main APRN DAIRY PRODUCTS MAKER [facility] [address] [place] [address] Cervical Injection Office Pain Management Jim Wang MD [address] [place], [place] [address] radiculopathy Visit [place] (Primary Dx) [address] [facility] [address] [place] [address] Social History Tobacco Use Types [...] How often do you attend pentecostalism or taoist Patient refused 08/08/2019 services? Do [...] for the very basics like Not h zurod at all 08/08/2019 food, housing, medical care, [...] Comments Blood Pressure 118/72 07/10/2017 10:58 AM BRUSH HEAD MAKER Pulse 80 07/10/2017 10:58 AM BRUSH HEAD MAKER Temperature - - Respiratory Rate - - Oxygen Saturation 100% 07/10/2017 10:58 AM BRUSH HEAD MAKER Inhaled Oxygen Concentration - - Weight - - Height - - Body Mass Index - - documented in this encounter Patient Instructions Patient InstructionsSteeCara coley RN - 07/10/2017 10:15 AM CST [facility] Procedure Discharge Instructions Today you [...] pain center line during work hours at [phone] or on-call physician after hours at [phone]: -Fever over 100 degree F -Swelling, bleeding, redness, drainage, warmth at the injection site -Progressive weakness or numbness in your legs or arms -Loss of bowel or bladder function -Unusual headache that is not relieved by Tylenol or your regular headache medication -Unusual new onset of pain that is not improving Phone #s: Nurse triage line for general questions: [phone] H HEAD MAKER documented in this encounter Progress Notes Jim Wang MD - 07/10/2017 10:15 AM CST [facility] - Procedure Note Date of Visit: 07/10/2017 Procedure performed: C7-T1 interlaminar epidural steroid injection with fluoroscopic guidance Diagnosis: Cervical spondylosis; Cervical radiculitis/radiculopathy Selenium Plant Operator: Jim Wang MD Anesthesia: none Indications: Megan [...] the patient was advised to contact the [facility] for any of the [...] for post-procedure evaluation. Jim WangMD Pain Management H HEAD MAKER documented in this encounter Nursing Notes Sandy [...] oral steroids? 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 NO Are the vital signs normal? Yes H HEAD MAKER Cara Mcnulty RN - 07/10/2017 10:15 AM CST 22 gauge Peripheral IV inserted into left anticubital - attempts: 1 Cara MORALES-RN House Carpenter [facility] H HEAD MAKER Cara Mcnulty RN - 07/10/2017 10:15 AM [...] patient home? Yes Signature/Title: Cara Mcnulty RN House Carpenter [facility] H HEAD MAKER documented in this encounter Plan of Treatment Not on filedocumented as of this encounter Visit Diagnoses Diagnosis Cervical radiculopathy - Primary Brachial neuritis or radiculitis nos documented in this encounter Additional Health Concerns Assessment Noted Time PHQ-9 Depression Total Score: 12 06/12/2017 1:02 PM CS T documented as of this encounter Care Teams Irrigator Overhead Relationship Specialty Start Date End Date Vanda Guerrero MD PCP - General Internal Medicine 04/08/15 01/08/19 [address] [facility] [place] [id number] Vanda Guerrero MD PCP - Assigned PCP 07/24/16 06/15/18 [address] [facility] [place] [address] documented as of this encounter
--- OUTSIDE RECORDS SUMMARY | 2022-01-17 22:33 | XMS_ITS | Encounter Summary ---
:1965 Author Organization [place] Address [address] [place] [address] Care Team Providers Name Role Phone Vanda Guerrero MD Primary Care Provider [phone] Vanda Guerrero MD Unavailable Reason for Referral - Closed Specialty Diagnoses / Procedures Referred By Contact Refer red To Contact Diagnoses Cervical facet joint syndrome Rosalia Main, SEAN HAZARDOUS MATERIAL TECHNICIAN [facility] [address] [place] [address] Referral ID Status Reason Start Date Expiration Date Visits Requ ested Visits Authorized [id number] Closed 06/29/2017 06/29/2018 1 1 HOUSE ATTENDANT Reason for Visit Reason Onset Date Comments Results 06/29/2017 Encounter Details Date Type Department Care Team Description 06/29/2017 Telephone [facility] Neurosurgery Angella Main, Results [facility] AUTOMOTIVE ELECTRICAL FITTER HAZARDOUS MATERIAL TECHNICIAN [address] [facility] [address] [place] [address] [address] [place], [place] [address] (Wo rk) Social History [...] How often do you attend latter-day or baptism Patient refused 08/08/2019 services? Do [...] Main APRN CNP - 06/29/2017 2:11 PM FUN HOUSE ATTENDANT Pt contacted with MRI results. Fusion solid. She was very concerned about her C1-2 and was told years ago there was something wrong. Her C1-2 per MRI is normal. She does have facet degeneration on the right. Recc. Injections and PT. She is open to this. Rosalia Main HAZARDOUS MATERIAL TECHNICIAN [facility] [address] [place] [address]. [address] Tel. [phone] HOUSE ATTENDANT documented in this encounter Plan of [...] documented as of this encounter Care Teams Cardroom Manager Relationship Specialty Start Date End Date Vanda Guerrero MD PCP - General Internal Medicine 04/08/15 01/08/[address] [place] [address] [place] [address] Vanda Guerrero MD PCP - Assigned PCP 07/24/16 06/15/[address] [place] [address] [place] [id number] documented as of this encounter
--- OUTSIDE RECORDS SUMMARY | 2022-01-17 22:33 | XMS_ITS | Encounter Summary ---
:1965 Author Organization [facility] Address [address] [place] [address] Care Team Providers Name Role Phone Vanda Guerrero MD Primary Care Provider [phone] Vanda Guerrero MD Unavailable Reason for Visit Reason Comments Medication Refill tiZANidine (ZANAFLEX) 4 MG t ablet Encounter Details Date Type Department Care Team Description 05/05/2017 Refill [facility] Vanda Guerrero M edication Refill Clinic [facility] SALDANA (tiZANidine (ZANAFLEX) [address] [facility] 4 MG tablet) [facility] [address] [place] [address] [place] [address] [phone] Social History Tobacco Use Types Packs/Day Years [...] How often do you attend holiness or anabaptism Patient refused 08/08/2019 services? Do [...] on the [facility] refill protocol Kirsten Casillas, trawl net maker Nurse MACY RESIDENT Telephone Encounter - Efren Pryor - 05/06/2017 7:37 PM CST YOSELIN: 12/25/2016 MACY RESIDENT documented in this encounter Plan of Treatment Not on filedocumented as of this encounter Visit Diagnoses Diagnosis Cervicalgia History of fusion of cervical spine Arthrodesis status History of lumbar fusion documented in this encounter Additional Health Concerns Assessment Noted Time PHQ-9 Depression Total Score: 9 10/12/2016 7:16 AM CDT documented as of this encounter Care Teams Diesel Technician Relationship Specialty Start Date End Date Vanda Guerrero MD PCP - General Internal Medicine 04/08/15 01/08/[address] [facility] [address] [place], [place] [id number] Vanda Guerrero MD PCP - Assigned PCP 07/24/16 06/15/18 [address] [facility] [place] [address] documented as of this encounter
--- OUTSIDE RECORDS SUMMARY | 2022-01-17 22:33 | XMS_ITS | Encounter Summary ---
:1965 Author Organization [facility] Address [address] [place] [address] Care Team Providers Name Role Phone Vanda Guerrero MD Primary Care Provider [phone] Vanda Guerrero MD Unavailable Encounter Details Date Type Department Care Team Description 07/09/2017 Therapy Visit [facility] Serena Blount (Primary Dx); CHIRO J, [place] Cervical segment dysfunction; [address] [facility] Thoracic segment dysfunction [address] [facility] 300 [address] [place] [id number] Social History Tobacco Use Types Packs/Day Years [...] How often do you attend hindu or catholic Patient refused 08/08/2019 services? Do [...] post manipulation Plan: Procedures: Evaluation and Management: 69880 Moderate level exam 30 min CMT: 17135 Chiropractic manipulative treatment 1-2 regions performed Occiput: Gentle distraction-x10, C0, Supine Cervical: Gentle PtoA mob'sC4, T2, Supine NO rotary manipulation due to fusion C5-C7 Activator to right first rib Modalities: 72536: Acupuncture, for 15 minutes: Points: For neck [...] C5-C7 Activator to right first rib Modalities: 36166: Acupuncture, for 15 minutes: Points: For neck [...] when interpreting information found in this chart. TS DEVELOPMENT OFFICER documented in this encounter Plan of Treatment Not on filedocumented as of this encounter Procedures Procedure Name Priority Date/Time Associated Diagnosis Comme nts HC ACUPUNCTURE, 1+ Routine 07/09/2017 1:43 PM Cervicalgi a NEEDLES, W/O ELECTRICAL SPORTS DEVELOPMENT OFFICER Cervical segment STIM; INIT 15 MIN dysfunction PERSONAL CONTACT Thoracic segment dysfunction [facility] CHIROPRAC Routine 07/09/2017 1:43 PM Cervicalgia MANIP,SPINAL,1-2 SPORTS DEVELOPMENT OFFICER Cervical segment REGIONS dysfunction Thoracic segment dysfunction [...] documented as of this encounter Care Teams Fretted Instrument Inspector Relationship Specialty Start Date End Date Vanda Guerrero MD PCP - General Internal Medicine 04/08/15 01/08/19 [address] [facility] [place] [address] Vanda Guerrero MD PCP - Assigned PCP 07/24/16 06/15/18 [address] [facility] [place] [address] documented as of this encounter
--- OUTSIDE RECORDS SUMMARY | 2022-01-17 22:33 | XMS_ITS | Encounter Summary ---
:1965 Author Organization [place] Address [address] [place] [address] Care Team Providers Name Role Phone Vanda Guerrero MD Primary Care Provider [phone] Vanda Guerrero MD Unavailable Reason for Referral Diagnostic Imaging Ultrasound - Closed Specialty Diagnoses / Procedures Referred By Contact Refer red To Contact Radiology. Diagnoses Alkaline phosphatase elevation Vanda Guerrero MD Ultrasound Rscc Procedures US Abdomen Limited [address] [facility] [address] [place] [address] [address] [address] Phone: Fax: Referral ID Status Reason Start Date Expiration Date Visits Requ ested Visits Authorized [id number] Closed 06/15/2017 06/15/2018 1 1 [facility] Reason for Visit Diagnostic Imaging Ultrasound - Closed Specialty Diagnoses / Procedures Referred By Contact Refer red To Contact Radiology. Diagnoses Alkaline phosphatase elevation Vanda Guerrero MD Ultrasound Rscc Procedures US Abdomen Limited [address] [facility] [place] [address] [facility] [address] [address] Phone: Fax: Referral ID Status Reason Start Date Expiration Date Visits Requ ested Visits Authorized [id number] Closed 06/15/2017 06/15/2018 1 1 Encounter Details Date Type Department Care Team Description 06/21/2017 Hospital Encounter [facility] Toribio [facility] Imaging [address] [facility] elevation [address] [place] [address] [place], [place] [phone] [address] (Work) [phone] Social History Tobacco Use Types Packs/Day Years [...] How often do you attend scientology or yazidism Patient refused 08/08/2019 services? Do [...] capsule 8 capsule 0 017 01/02/2019 D3) 45221 UNITS (50,000 Units) by capsuleIndications: mouth once [...] or female climacteric states fluticasone (FLONASE) 50 [place] 1-2 sprays 3 Bottle 3 06/1208/07/2019 MCG/ACT [...] AM Alkaline phosph atase Results for this AGRICULTURAL REAL ESTATE AGENT elevation procedure are i n the results section. documented in this encounter Results US Abdomen Limited (06/21/2017 10:11 AM AGRICULTURAL REAL ESTATE AGENT) Anatomical Region Laterality Modality Abdomen/Pelvis Ultrasound Specimen (Source) Anatomical Location Collection Method / Collectio n Time Received Time / Laterality Volume Impressions 06/21/2017 10:49 AM AGRICULTURAL REAL ESTATE AGENT IMPRESSION: ??Fatty infiltration of the liver. No gallstones or bile duct dilatation. DWIGHT LOZA MD Narrative 06/21/2017 10:49 AM AGRICULTURAL REAL ESTATE AGENT ULTRASOUND ABDOMEN LIMITED 06/21/2017 10:11 AM HISTORY: [...] documented as of this encounter Care Teams Bereavement Program Coordinator Relationship Specialty Start Date End Date Vanda Guerrero MD PCP - General Internal Medicine 04/08/15 01/08/[address] [place] [address] [place] [address] Vanda Guerrero MD PCP - Assigned PCP 07/24/16 06/15/[address] [place] [address] [place] [address] documented as of this encounter
--- OUTSIDE RECORDS SUMMARY | 2022-01-17 22:33 | XMS_ITS | Encounter Summary ---
:1965 Author Organization [facility] Address [facility]ly [facility] [place] [address] Care Team Providers Name Role Phone Vanda Guerrero MD Primary Care Provider [phone] Vanda Guerrero MD Unavailable JeanaNoreen girard GLOBAL SUPPLY CHAIN VICE PRESIDENT LICENSED FINAL EXPENSE AGENTS Unavailable [phone] JeanaNoreen girard GLOBAL SUPPLY CHAIN VICE PRESIDENT LICENSED FINAL EXPENSE AGENTS Unavailable [phone] JeanaNoreen girard GLOBAL SUPPLY CHAIN VICE PRESIDENT LICENSED FINAL EXPENSE AGENTS Primary Care Provider Kalyan Galvan Unavailable Unavailable Lashae Trevino [facility] Unavailable [phone] Eduardo Sharma MD Unavailable Rios Monteiro MD Unavailable Marcelo Artis-C Unavailable [phone] Rodrigo Man-C Unavailable Reason for Visit Reason Onset Date Comments Patient/info Update 07/18/2017 post C7-T1 interlami brown epidural steroid injection Encounter Details Date Type Department Care Team Description 07/18/2017 Telephone [facility] Pain Jim Wang Patient/info Update Management Taylor Taylor MD (post C7-T1 [address] 6545 [facility] interlaminar epidural [address] [place] [address] steroid injection ) [place] [address] [phone] Social History Tobacco Use Types Packs/Day Years [...] How often do you attend baptism or protestant Patient refused 08/08/2019 services? Do [...] pt should call the nurse line at [phone]. ETIZER TENDER documented in this encounter Plan of [...] of this encounter Care Teams Head Of Design Relationship Specialty Start Date End Date Vanda Guerrero, PCP - General Internal Medicine 04/08/15 [facility]08[facility]19 [facility] [place] [address] Vanda Guerrero, PCP - Assigned PCP 07/24/16 06/15/18 MD Vargas [facility] [place] [address] [place] PCP - Assigned PCP 06/16/18 08/13/18 SEAN Haley CNP [facility] [place] [address] [place] PCP - General Nurse Practitioner 01/09/19 12/12/21 SEAN Haley [employer]IC[employer]ED [employer]AL EXPENSE AG[employer] [address] [facility] [place] [address] [place] Assigned PCP 06/16/18 SEAN Haley [employer]PENSE [employer] [address] [facility] [place] [address] Kalyan Galvan Personal Advocate & 08/08/19 Liaison (PAL) Lashae Trevino Pharmacist Pharmacist 10/14/19 12/01/[facility] [address] [facility] [address] [place], [place] [phone] Eduardo Sharma MD Assigned Sleep Provider 04/02/20 05/07/21 [address] [place] [address] [place] [id number] Rios Monteiro MD Assigned Musculoskeletal 04/02/20 08/24/[address] Provider [place] [address] [place], [place] [address] Marcelo Artis Assigned Musculoskeletal 08/25/20 08/20/21 MIKAYLA Nuno Provider [address] [place], [place] [address] Rodrigo Man Assigned Surgical 08/25/2011/27 MIKAYLA Lacy Provider [address] [place] [address] documented as of this encounter
--- OUTSIDE RECORDS SUMMARY | 2022-01-17 22:33 | XMS_ITS | Encounter Summary ---
:1965 Author Organization [facility] Address [address] [place] [address] Care Team Providers Name Role Phone Vanda Guerrero MD Primary Care Provider [phone] Vanda Guerrero MD Unavailable Reason for Visit Reason Comments Medication Refill [facility] L[facility] 24 HOUR 10- 240 MG per 24 hr tablet Encounter Details Date Type Department Care Team Description 02/05/2017 Refill [facility] Vanda Guerrero M edication Refill ([facility] [place] LORATADINE-D 24 HOUR [address] [place] 3305 [facility] 10-24 0 MG per 24 hr [facility] DR tablet) [address] [place] [address] [place] [address] [phone] Social History Tobacco Use Types Packs/Day Years [...] How often do you attend tenriism or islam Patient refused 08/08/2019 services? Do [...] CDT Info sent . Thea Gonzalez RN [facility] [phone] Telephone Encounter - Marisa Matthew - 02/05/2017 [...] as of this encounter Care Teams Vp Treasurer Relationship Specialty Start Date End Date Vanda Guerrero MD PCP - General Internal Medicine 04/08/15 01/08/[address] [place] [address] [place] [address] Vanda Guerrero MD PCP - Assigned PCP 07/24/16 06/15/[address] [place] [address] [place] [address] documented as of this encounter
--- OUTSIDE RECORDS SUMMARY | 2022-01-17 22:33 | XMS_ITS | Encounter Summary ---
:1965 Author Organization [facility] Address [address] [place] [address] Care Team Providers Name Role Phone Vanda Guerrero MD Primary Care Provider [phone] Vanda Guerrero MD Unavailable Reason for Visit Reason Comments Medication Refill SUMAtriptan (IMITREX) 25 MG tablet Encounter Details Date Type Department Care Team Description 07/13/2017 Refill [facility] Vanda Guerrero M edication Refill Clinic [place] SALDANA (SUMAtriptan (IMITREX) [address] [facility] 25 MG tablet) [facility] [address] [place] [address] [place] [address] [phone] Social History Tobacco Use Types Packs/Day Years [...] How often do you attend tenriism or jain Patient refused 08/08/2019 services? Do [...] Mimi Roberts RN - 07/13/2017 12:25 PM BIOMEDICAL ENGINEERING TECHNICIAN BP Readings from Last 3 Encounters: 07/10/17 118/72 06/27/17 124/77 06/12/17 116/72 Prescription approved per [facility] Refill Protocol. Kassie Roberts RN EDICAL ENGINEERING TECHNICIAN Telephone Encounter - Kartik Javier - 07/13/2017 [...] no refill protocol information for this order EDICAL ENGINEERING TECHNICIAN documented in this encounter Plan of Treatment Not on filedocumented as of this encounter Visit Diagnoses Diagnosis Migraine without status migrainosus, not intractable, unspecified migraine type documented in this encounter Additional Health Concerns Assessment Noted Time PHQ-9 Depression Total Score: 12 06/12/2017 1:02 PM CS T documented as of this encounter Care Teams Mangle Tender Relationship Specialty Start Date End Date Vanda Guerrero MD PCP - General Internal Medicine 04/08/15 01/08/19 [address] [facility] [place] [address] Vanda Guerrero MD PCP - Assigned PCP 07/24/16 06/15/18 [address] [facility] [place] [address] documented as of this encounter
--- OUTSIDE RECORDS SUMMARY | 2022-01-17 22:33 | XMS_ITS | Encounter Summary ---
:1965 Author Organization [facility] Address [address] [place] [address] Care Team Providers Name Role Phone Vanda Guerrero MD Primary Care Provider [phone] Vanda Guerrero MD Unavailable Reason for Visit Reason Comments Medication Refill simvastatin (ZOCOR) 20 MG ta blet Encounter Details Date Type Department Care Team Description 05/15/[address] [facility] Vanda Guerrero M edication Refill Clinic [place] SALDANA (simvastatin (ZOCOR) 20 [address] [place] 3305 [facility] MG ta blet) [facility] [address] [place] [address] [place] [address] [phone] Social History Tobacco Use Types Packs/Day Years [...] Gayathri Mcallister RN - 05/16/2017 11:16 AM MEDICAL REIMBURSEMENT SPECIALIST Patient is due for a diabetic appointment. Routing refill request to provider for review/approval because: Labs out of range: LDL not at goal Gayathri Mcallister RN Message handled by Nurse Triage. CAL REIMBURSEMENT SPECIALIST Telephone Encounter - Marisa Matthew - 05/15/2017 10:34 AM CST YOSELIN 09/25/2016 CAL REIMBURSEMENT SPECIALIST documented in this encounter Plan of Treatment Not on filedocumented as of this encounter Visit Diagnoses Diagnosis Hyperlipidemia LDL goal <100 Other and unspecified hyperlipidemia documented in this encounter Additional Health Concerns Assessment Noted Time PHQ-9 Depression Total Score: 9 10/12/2016 7:16 AM CDT documented as of this encounter Care Teams Draw Operator Relationship Specialty Start Date End Date Vanda Guerrero MD PCP - General Internal Medicine 04/08/15 01/08/19 [address] [facility] [place] [id number] Vanda Guerrero MD PCP - Assigned PCP 07/24/16 06/15/18 [address] [facility] [place] [address] documented as of this encounter
--- OUTSIDE RECORDS SUMMARY | 2022-01-17 22:33 | XMS_ITS | Encounter Summary ---
:1965 Author Organization [facility] Address [address] [place] [address] Care Team Providers Name Role Phone Vanda Guerrero MD Primary Care Provider [phone] Vanda Gurerero MD Unavailable Reason for Visit Diagnostic Imaging XR - Closed Specialty Diagnoses / Procedures Referred By Contact Refer red To Contact Diagnoses Cervicalgia Rosalia Main APRN Procedures XR Cervical Spine 2/3 Views [facility] [address] [place] [address] Referral ID Status Reason Start Date Expiration Date Visits Requ ested Visits Authorized [id number] Closed 06/27/2017 06/27/2018 1 1 Encounter Details Date Type Department Care Team Description 06/27/2017 Radiant Appointment [facility] Sports Rosalia Main Cervicalbola and Orthopedic Care [facility] [place] [facility] ORTHOPEDICS [address] [place] [address] [place], [place] [phone] [address] Social History Tobacco Use Types Packs/Day Years [...] How often do you attend hinduism or catholic Patient refused 08/08/2019 services? Do you belong to any clubs or organizations such as No 08/08/2019 hinduism groups, [employer], fraternal or athletic groups, or school groups? [...] Cervicalgia Res ults for this 2/3 VIEWS MANAGER LABOR RELATIONS procedure are i n the results section. documented in this encounter Results XR Cervical Spine 2/3 Views (06/27/2017 10:30 AM MANAGER LABOR RELATIONS) Anatomical Region Laterality Modality Spine Computed Radiography Specimen (Source) Anatomical Location Collection Method / Collectio n Time Received Time / Laterality Volume Impressions 06/27/2017 4:33 PM MANAGER LABOR RELATIONS IMPRESSION: Flexion and extension lateral views only. 1 mm anterolisthesis C2 on C3 and C4 on C5. T hese levels reduce with extension. Anterior interbody fusion C5- C7 appears solid with normal alignment. Degenerative disc space narro wing C3-4. No acute bony or soft tissue abnormality in the lateral v iew. ROHAN PINK MD Narrative 06/27/2017 4:33 PM MANAGER LABOR RELATIONS CERVICAL SPINE TWO - THREE VIEWS 06/27/2017 [...] iew. ROHAN PINK MD Rosalia Main APRN BODY SHOP MECHANIC IMG DIAGNOSTIC IMAGING DAMASO MIRAMONTES documented in this encounter Visit Diagnoses Diagnosis Cervicalgia documented in this encounter Additional Health Concerns Assessment Noted Time PHQ-9 Depression Total Score: 12 06/12/2017 1:02 PM CS T documented as of this encounter Care Teams Barber Apprentice Relationship Specialty Start Date End Date Vanda Guerrero MD PCP - General Internal Medicine 04/08/15 01/08/19 [address] [facility] [place] [id number] Vanda Guerrero MD PCP - Assigned PCP 07/24/16 06/15/18 65[address] [facility] [place] [id number] documented as of this encounter
--- OUTSIDE RECORDS SUMMARY | 2022-01-17 22:33 | XMS_ITS | Encounter Summary ---
:1965 Author Organization [facility] Address [address] [place] [address] Care Team Providers Name Role Phone Vanda Guerrero MD Primary Care Provider [phone] Vanda Guerrero MD Unavailable Encounter Details Date Type Department Care Team Description 07/18/2017 Therapy Visit [facility] Serena Blount (Primary Dx); CHIRO J, [place] Thoracic spine pain; [address] [facility] Cervical segment dysfunction [address] [facility] 300 [address] [place] [id number] Social History Tobacco Use Types Packs/Day Years [...] to feel looser post manipulation Procedures: CMT: 57017 Chiropractic manipulative treatment 1-2 regions performed Occiput: Gentle distraction-x10, C0, Supine Cervical: Gentle PtoA mob'sC4, T2, Supine NO rotary manipulation due to fusion C5-C7 Activator to right first rib Modalities: 34950: Acupuncture, for 15 minutes: Points: For neck [...] Follow-up: Return to care in one week. EXAMINER documented in this encounter Plan of Treatment Not on filedocumented as of this encounter Procedures Procedure Name Priority Date/Time Associated Diagnosis Comme nts ACUPUNCTURE, 1+ Routine 07/18/2017 1:03 PM Cervicalgi a NEEDLES, W/O ELECTRICAL MAIL EXAMINER Thoracic spine pain STIM; INIT 15 MIN Cervical segment PERSONAL CONTACT dysfunction ZC CHIROPRAC Routine 07/18/2017 1:03 PM Cervicalgia MANIP,SPINAL,1-2 MAIL EXAMINER Thoracic spine pain REGIONS Cervical segment dysfunction documented in this encounter Visit Diagnoses Diagnosis Cervicalgia - Primary Thoracic spine pain Pain in thoracic spine Cervical segment dysfunction Nonallopathic lesion of cervical region, not elsewhere classified documented in this encounter Additional Health Concerns Assessment Noted Time PHQ-9 Depression Total Score: 12 06/12/2017 1:02 PM CS T documented as of this encounter Care Teams Asset Card Clerk Relationship Specialty Start Date End Date Vanda Guerrero MD PCP - General Internal Medicine 04/08/15 01/08/19 [address] [facility] [place] [address] Vanda Guerrero MD PCP - Assigned PCP 07/24/16 06/15/[address] [place] [address] [place] [address] documented as of this encounter
--- OUTSIDE RECORDS SUMMARY | 2022-01-17 22:33 | XMS_ITS | Encounter Summary ---
:1965 Author Organization [place] Address [address] [place] [address] Care Team Providers Name Role Phone Vanda Guerrero MD Primary Care Provider [phone] Vanda Guerrero MD Unavailable JeanaNoreen girard SOLUTION MANAGER SYNTHETIC CLOTH BINDING CUTTER Unavailable [phone] JeanaNoreen girard SOLUTION MANAGER SYNTHETIC CLOTH BINDING CUTTER Unavailable [phone] JeanaNoreen girard SOLUTION MANAGER SYNTHETIC CLOTH BINDING CUTTER Primary Care Provider Kalyan Galvan Unavailable Unavailable Lashae Trevino [facility] Unavailable [phone] Eduardo Sharma MD Unavailable Rios Monteiro MD Unavailable Marcelo Artis-C Unavailable [phone] Rodrigo ManC Unavailable Reason for Visit Reason Comments Medication Refill simvastatin (ZOCOR) 20 MG ta blet Encounter Details Date Type Department Care Team Description 02/15/2017 Refill [facility] Vanda Guerrero M edication Refill Clinic [place] SALDANA (simvastatin (ZOCOR) 20 [address] [facility] MG [place] blet) [facility] [address] [place] [address] [place] [address] [phone] Social History Tobacco Use Types Packs/Day Years [...] How often do you attend sabianism or episcopal Patient refused 08/08/2019 services? Do [...] # refills: 3 Last Office Visit with [facility] or [facility] prescribing provider: 09/25/2016 Lab Results Component [...] athologist Signature Cholesterol 178 <200 mg/dL 02/17/2017 [facility] 2:14 PM CDT [facility] Triglycerides 121 <150 mg/dL 02/17/2017 [facility] 2:14 PM T [facility] Comment: Fasting specimen HDL Cholesterol 43 (L) >49 mg/dL 02/17/2017 2:14 PM [facility] LDL Cholesterol 111 (H) <100 mg/dL 02/17/2017 2:14 PM [facility] Calculated CDT [facility] Comment: Above desirable: ??100-129 mg/dl Borderline High: ??130-159 mg/dL High: ? 160-189 mg/dL Very high: ? >189 mg/dl Non HDL Cholesterol 135 (H) <130 mg/dL 02/17/2017 2:14 PM [facility] Comment: Above Desirable: ??130-159 mg/dl Borderline high: ??160-189 mg/dl High: ? 190-219 mg/dl Very high: ? >219 mg/dl Specimen Anatomical Collection Method Collection Time Receive d Time (Source) Location / / Volume Laterality Blood specimen 02/17/2017 9:13 AM 017 9:18 (specimen) CDT AM CDT Vanda Guerrero MD LAB - BLOOD ORDERABLES Performing Organization Address City/State/ZIP Code Phon e Number [facility] [address] [place] [address] documented in this encounter Visit Diagnoses Diagnosis Hyperlipidemia LDL goal <100 Other and unspecified hyperlipidemia documented in this encounter Additional Health Concerns Infection Onset Date Last Indicated Resolved Time Rule Out COVID-19 08/25/2020 08/25/2020 08/26/2020 3:2 3 PM CDT Assessment Noted Time PHQ-9 Depression Total Score: 9 10/12/2016 7:16 AM CDT documented as of this encounter Care Teams Vibrator Operator Relationship Specialty Start Date End Date Vanda Guerrero, PCP - General Internal Medicine 04/08/15 01/08/19 [address] [facility] [place] [address] Vanda Guerrero, PCP - Assigned PCP 07/24/16 06/15/18 [address] [facility] [place] [address] Noreen Hills PCP - Assigned PCP 06/16/18 08/13/18 SEAN Haley SYNTHETIC CLOTH BINDING CUTTER [facility] [facility] [place] [address] Noreen Hills PCP - General Nurse Practitioner 01/09/19 12/12/21 SEAN Haley SYNTHETIC CLOTH BINDING CUTTER [address] [facility] [address] [address] [place] [id number] Noreen Hills Assigned PCP 06/16/18 SEAN Haley SYNTHETIC CLOTH BINDING CUTTER [address] [place] [address] [place] [id number] Kalyan Galvan Personal Advocate & 08/08/19 Liaison (PAL) Lashae Trevino Pharmacist Pharmacist 10/14/19 12/01/20 [facility] [address] [facility] [address] [facility] [address] [place], [place] [id number] Eduardo Sharma MD Assigned Sleep Provider 04/02/20 05/07/21 [address] [place] [id number] Rios Monteiro MD Assigned Musculoskeletal 04/02/20 08/24/20 [address] Provider [address] [place], [place] [address] Macrelo Artis Assigned Musculoskeletal 08/25/20 08/20/21 MIKAYLA Nuno Provider [address] [place] [address] Rodrigo Man Assigned Surgical 08/25/2011/27 MIKAYLA Lacy Provider [address] [place] [id number] documented as of this encounter
--- OUTSIDE RECORDS SUMMARY | 2022-01-17 22:33 | XMS_ITS | Encounter Summary ---
:1965 Author Organization [place] Address [address] [place] [address] Care Team Providers Name Role Phone Vanda Guerrero MD Primary Care Provider [phone] Vanda Guerrero MD Unavailable Reason for Visit Reason Comments Medication Refill loratadine-pseudoePHEDrine ( CLARITIN-D 24-HOUR) 10-240 MG per tablet Encounter Details Date Type Department Care Team Description 02/02/2017 Refill [facility] d[facility] Ref[facility] Clinic [place] APRN PROCESS CONSULTANT (loratadine-pseudoePHEDr [address] [facility] ine ( CLARITIN-D 24-HOUR) [facility] 10-240 MG per tablet ) [address] [place] [address] [place] [address] [phone] Social History Tobacco Use Types Packs/Day Years [...] How often do you attend mandaeism or hindu Patient refused 08/08/2019 services? Do [...] active on patient's medication list, not on [facility] protocol. Kirsten Casillas, baling machine operator Nurse Telephone Encounter - Marisa aMtthew - 02/05/2017 8:15 AM CDT loratadine-pseudoePHEDrine (CLARITIN-D 24-HOUR) 10-240 MG per tablet Last Written Prescription Date: 02/23/2016 Last Fill Quantity: 90, # refills: 3 Last Office Visit with [facility], P or Health prescribing provider: 09/25/2016 Future Office visit: Routing refill request to provider for review/approval because: Drug not on the [facility], [facility] or Health refill protocol or controlled substance documented in this encounter Plan of Treatment Not on filedocumented as of this encounter Visit Diagnoses Diagnosis Chronic seasonal allergic rhinitis, unsp ecified trigger - Primary documented in this encounter Additional Health Concerns Assessment Noted Time PHQ-9 Depression Total Score: 9 10/12/2016 7:16 AM CDT documented as of this encounter Care Teams Master Ocean Yacht Relationship Specialty Start Date End Date Vanda Guerrero MD PCP - General Internal Medicine 04/08/15 01/08/19 [address] [facility] [place] [address] Vanda Guerrero MD PCP - Assigned PCP 07/24/16 06/15/18 [address] [facility] [place] [address] documented as of this encounter
--- OUTSIDE RECORDS SUMMARY | 2022-01-17 22:33 | XMS_ITS | Encounter Summary ---
:1965 Author Organization [place] Address [facility] [address] Care Team Providers Name Role Phone Vanda Guerrero MD Primary Care Provider [phone] Vanda Guerrero MD Unavailable Reason for Visit Diagnostic Imaging XR - Closed Specialty Diagnoses / Procedures Referred By Contact Refer red To Contact Diagnoses Cervical facet joint syndrome Jim Wang, Procedures XR Cervical/Thoracic Epidural Inj [address] [place] [address] Referral ID Status Reason Start Date Expiration Date Visits Requ ested Visits Authorized [id number] Closed 07/09/2017 07/09/2018 1 1 Encounter Details Date Type Department Care Team Description 07/10/2017 Radiant Appointment [facility] Jl Wang vical facet Clinic [place] Jim joint synd shola Pain Management MD [place] [address] [place] [address] [address] [place] [address] [place] [phone] (Work) [phone] Social History Tobacco Use Types Packs/Day Years [...] How often do you attend religion or shinto Patient refused 08/08/2019 services? Do you belong to any clubs or organizations such as No 08/08/2019 religion groups, Zdorovios, fraternal or athletic groups, or school groups? [...] Cervical facet joint Results for this CERVICAL/THORACIC AEROSPACE MEDICINE PHYSICIAN syndrome procedure are in EPIDURAL INJ INCL the result s IMAGING section. documented in this encounter Results XR Cervical/Thoracic Epidural Inj (07/10/2017 10:17 AM AEROSPACE MEDICINE PHYSICIAN) Specimen (Source) Anatomical Location Collection Method / Collectio n Time Received Time / Laterality Volume Narrative Rosangela Posada - 07/10/2017 10:43 AM AEROSPACE MEDICINE PHYSICIAN This exam was marked as non-reportable because it will not be read by a radiologist or a [place] non-radiologis t provider. Jim Wang MD IMG DIAGNOSTIC IMAGING ORD ERABLES documented in this encounter Visit Diagnoses Diagnosis Cervical facet joint syndrome Other symptoms referable to back documented in this encounter Administered Medications Inactive Administered Medications - up to 3 most recent administrations Medication Order MAR Action Action Date Dose Rate Site iohexol (OMNIPAQUE) 300 mg/mL Given by Other 07/10/2017 10:42 AM AEROSPACE MEDICINE PHYSICIAN 1 mL injection 10 mL 10 mL, EPIDURAL, ONCE, On 07/10/17 at 1030, For 1 dose documented in this encounter Additional Health Concerns Assessment Noted Time PHQ-9 Depression Total Score: 12 06/12/2017 1:02 PM CS T documented as of this encounter Care Teams Aircraft Manager Relationship Specialty Start Date End Date Vanda Guerrero MD PCP - General Internal Medicine 04/08/15 01/08/[address] [place] [address] [place] [address] Vanda Guerrero MD PCP - Assigned PCP 07/24/16 06/15/[address] [place] [address] [place] [address] documented as of this encounter
--- OUTSIDE RECORDS SUMMARY | 2022-01-17 22:33 | XMS_ITS | Encounter Summary ---
:1965 Author Organization [place] Address [address] [place] [address] Care Team Providers Name Role Phone Vanda Guerrero MD Primary Care Provider [phone] Vanda Guerrero MD Unavailable Reason for Visit Reason Onset Date Comments Outreach 04/26/2017 Encounter Details Date Type Department Care Team Description 04/26/2017 Telephone [facility] Sandy Joe, Outreach Formerly [facility] [address] [place] [address] [address] [place] [address] Social History [...] How often do you attend congregational or taoist Patient refused 08/08/2019 services? Do [...] Sandy Joe RPH - 04/26/2017 12:19 PM STILL PUMP OPERATOR We have attempted to contact this patient two times to set up a MTM follow up appointment and were unsuccessful. Contact attempts were made via [employer]. We will no longer continue to contact this patient to schedule a visit at this time. Please refer back to MTM if you believe this patient would continue to benefit from our services. Thank you! Sandy Joe PharmD BCPS Medication Therapy Management Practitioner #[phone] L PUMP OPERATOR documented in this encounter Plan of Treatment Not on filedocumented as of this encounter Visit Diagnoses Not on filedocumented in this encounter Additional Health Concerns Assessment Noted Time PHQ-9 Depression Total Score: 9 10/12/2016 7:16 AM CDT documented as of this encounter Care Teams Legal Contracts Specialist Relationship Specialty Start Date End Date Vanda Guerrero MD PCP - General Internal Medicine 04/08/15 01/08/19 [address] [facility] [place] [address] Vanda Guerrero MD PCP - Assigned PCP 07/24/16 06/15/18 [address] [facility] [place] [address] documented as of this encounter
--- OUTSIDE RECORDS SUMMARY | 2022-01-17 22:33 | XMS_ITS | Encounter Summary ---
:1965 Author Organization [facility] Address [address] [place] [address] Care Team Providers Name Role Phone Vanda Guerrero MD Primary Care Provider [phone] Vanda Guerrero MD Unavailable Reason for Visit Reason Onset Date Comments Procedure 06/29/2017 cervical facets vs. FABIAN Encounter Details Date Type Department Care Team Description 06/29/2017 Telephone [facility] Pain Management Procedu re (cervical Pain Management Program, [facility] facets vs. FABIAN) [address] [place] [address] Social History Tobacco Use Types [...] How often do you attend judaism or rastafari Patient refused 08/08/2019 services? Do you belong to any clubs or organizations such as [employer] 08/08/2019 judaism groups, unions, fraternal or athletic [...] be done at which interventional clinic site? [facility] Procedure ordered by Rosalia Main Procedure [...] YES, do NOT schedule and route to pool hall inspector Is an safety security officer needed? No Patient has a drive home? (mandatory) YES: Is patient taking any blood thinners (plavix, coumadin, jantoven, warfarin, heparin, pradaxa or dabigatran )? No If hold needed, do NOT schedule, route to pool hall inspector Is patient taking any aspirin products? Yes - Pt takes 81 mg daily; instructed to hold 6 day(s) prior to procedure. ?? If more than 325mg/day do NOT schedule; route to pool hall inspector ?? For CERVICAL procedures, hold all aspirin [...] YES, do NOT schedule and route to pool hall inspector Are you able to get on and off an exam table with minimal or no assistance? Yes If NO, do NOT schedule and route to pool hall inspector Are you able to roll over and lay on your stomach with minimal or no assistance? Yes If NO, do NOT schedule and route to pool hall inspector Any allergies to contrast dye, iodine, shellfish, or numbing and steroid medications? No If YES, route to pool hall inspector AND add allergy information to appointment notes [...] years? Yes ?? Was MRI done at [facility]? Yes ?? If not, where was it done? N/A ?? If MRI was not done at [facility], [facility] or [facility] Imaging do NOT schedule and route to [...] the patient have any questions? RAJENDRA Guevara [facility] LEDGE ARCHITECT documented in this encounter Plan of Treatment Not on filedocumented as of this encounter Visit Diagnoses Not on filedocumented in this encounter Additional Health Concerns Assessment Noted Time PHQ-9 Depression Total Score: 12 06/12/2017 1:02 PM CS T documented as of this encounter Care Teams Bow Rehairer Relationship Specialty Start Date End Date Vanda Guerrero MD PCP - General Internal Medicine 04/08/15 01/08/19 [address] [facility] [place] [address] Vanda Guerrero MD PCP - Assigned PCP 07/24/16 06/15/18 [address] [facility] [place] [address] documented as of this encounter
--- OUTSIDE RECORDS SUMMARY | 2022-01-17 22:33 | XMS_ITS | Encounter Summary ---
:1965 Author Organization [place] Address [address] [place] [address] Care Team Providers Name Role Phone Vanda Guerrero MD Primary Care Provider [phone] Vanda Guerrero MD Unavailable Reason for Visit (Routine) - Closed Specialty Diagnoses / Procedures Referred By Contact Refer red To Contact Radiology / Radiology. Diagnoses Epic order, sb pt Rh [place] [address] [place] [address] Phone: Fax: Referral ID Status Reason Start Date Expiration Date Visits Requ ested Visits Authorized [id number] Closed 12/25/2016 12/22/2017 1 1 Encounter Details Date Type Department Care Team Description 12/25/2016 Hospital Encounter [facility] Agatha Null, Marcos eft foot pain; [facility] DPM, Acute left ankle pain; [address] [facility]/Foot and Type 2 d iabetes mellitus without complication, without long-term current use of insulin (H); Drive [address] Ankle Surgery [place]ema [place] [address] [place] [address] [facility] [address] [place] [address] Social History Tobacco Use Types [...] How often do you attend alevism or mu-ism Patient refused 08/08/2019 services? Do [...] capsule 8 capsule 0 017 01/02/2019 D3) 82332 UNITS (50,000 Units) by capsuleIndications: mouth once [...] or female climacteric states fluticasone (FLONASE) [address] [place] 1-2 sprays 3 Bottle 3 05/0306/12/2017 MCG/ACT [...] documented as of this encounter Care Teams Vamp Marker Relationship Specialty Start Date End Date Vanda Guerrero MD PCP - General Internal Medicine 04/08/15 01/08/19 [address] [facility] [place] [address] Vanda Guerrero MD PCP - Assigned PCP 07/24/16 06/15/18 [address] [facility] [place] [address] documented as of this encounter
--- OUTSIDE RECORDS SUMMARY | 2022-01-17 22:33 | XMS_ITS | Encounter Summary ---
:1965 Author Organization [facility] Address [address] [place] [address] Care Team Providers Name Role Phone Vanda Guerrero MD Primary Care Provider [phone] Vanda Guerrero MD Unavailable Reason for Referral Consultation - Closed Specialty Diagnoses / Procedures Referred By Contact Refer red To Contact Diagnoses Multiple pigmented nevi Vanda Guerrero MD [facility], [address] [place] [address] [address] [place] [address] [place] [address] Fax: Referral ID Status Reason Start Date Expiration Date Visits Requ ested Visits Authorized [id number] Closed 06/12/2017 06/12/2018 1 1 STUDY ENGINEER Consultation - Closed Specialty Diagnoses / Procedures Referred By Contact Refer red To Contact Diagnoses Degenerative disc disease, cervical Vanda Guerrero MD [facility] [address] [place] [address] CL-RH- REFERRAL (OP) [address] [place] [address] [address] [place] [address] Phone: Fax: Referral ID Status Reason Start Date Expiration Date Visits Requ ested Visits Authorized [id number] Closed 06/12/2017 06/12/2018 1 1 STUDY ENGINEER Reason for Visit Reason Comments Diabetes Lipids Recheck Medication Encounter Details Date Type Department Care Team Description 06/12/2017 Office Visit [facility] Vanda Guerrero ative disc disease, cervical (Primary Dx); Clinic Pino Toribio MD Moderate episode of recurrent major depr essive disorder (H); [address] [place] [address] [facility] Morbi d obesity (H); [facility] Type 2 diabetes mellitus without complic ation, without long-term current use of insulin (H); [address] [place] [address] Anxiety; [place] [address] Muscle spasm; [phone] Persisten t insomnia; Fibromyalgia; Multiple pigmen jayne [...] How often do you attend restorationism or yarsanism Patient refused 08/08/2019 services? Do [...] Comments Blood Pressure 116/72 06/12/2017 12:11 PM TIME STUDY ENGINEER Pulse 76 06/12/2017 12:11 PM TIME STUDY ENGINEER Temperature 36.4 ??C (97.6 ??F) 06/12/2017 12:11 PM TIME STUDY ENGINEER Respiratory Rate - - Oxygen Saturation 99% 06/12/2017 12:11 PM TIME STUDY ENGINEER Inhaled Oxygen Concentration - - Weight 90.7 kg (200 lb) 06/12/2017 12:11 PM TIME STUDY ENGINEER Height 157.5 cm (5' 2) 06/12/2017 12:11 PM TIME STUDY ENGINEER Body Mass Index 36.58 06/12/2017 12:11 PM TIME STUDY ENGINEER documented in this encounter Patient Instructions Patient InstructionsVanda Guerrero MD - 06/12/2017 12:00 PM CST Expect a call to set up a visit with the military personnel specialist. Increase your citalopram to 1.5 pills per day. Stop the zanaflex and start robaxin (methocarbamol) in its place for your muscle pain Repeat labs today Numbers below for dermatology visit for the spot on your left shoulder Trial of ambien for sleep - don't drive on this - think about trying a 1/2 tablet first STUDY ENGINEER documented in this encounter Progress Notes [...] or the safety of others? No PHQ-9 Icelandic PHQ-9 Any Language Suicide Assessment Five-step Evaluation [...] 1. Degenerative disc disease, cervical M50.30 ORTHO COLLEGE RECRUITER REFERRAL Recommended repeat evaluation for cervical spine [...] IM See Patient Instructions Vanda Guerrero MD [facility] STUDY ENGINEER documented in this encounter Nursing Notes [...] 200 lb (90.7 kg). Medication Reconciliation: complete STUDY ENGINEER documented in this encounter Plan of Treatment Pending Results Name Type Priority Associated Diagnoses Date/Ti me ORTHO COLLEGE RECRUITER REFERRAL Referral Routine Degenerative dis c disease, 06/13/2017 cervical Scheduled Referrals Name Type Priority Associated Diagnoses Order S chedule DERMATOLOGY REFERRAL Referral Routine Multiple pigmented n missy Ordered: 06/12/2017 documented as of this encounter Procedures Procedure Name Priority Date/Time Associated Comments Diagnosis VITAMIN D DEFICIENCY Routine 06/12/2017 12:55 Fatigue, Res ults for this SCREENING PM TIME STUDY ENGINEER unspecified type procedure a re in the results section. HEMOGLOBIN A1C Routine 06/12/2017 12:55 Type 2 diabetes Result s for this PM TIME STUDY ENGINEER mellitus without procedure a re in complication, the results without long-term section. current use of insulin (H) Morbid obesity (H) COMPREHENSIVE Routine 06/12/2017 12:55 Type 2 diabetes Results for this METABOLIC PANEL PM TIME STUDY ENGINEER mellitus without procedur e are in complication, the results without long-term section. current use of insulin (H) Morbid obesity (H) documented in this encounter Results Vitamin D Deficiency (06/12/2017 12:55 PM TIME STUDY ENGINEER) P athologist Signature Vitamin D 35 20 - 75 06/13/2017 [facility] Deficiency ug/L 11:48 AM TIME STUDY ENGINEER [facility] Comment: Season, race, dietary intake, and treatm ent affect the concentration of 48-yrhwmpc-Qdvxtdk D. Values may decreas e during winter [...] Blood specimen 06/12/2017 12:55 8 (specimen) PM TIME STUDY ENGINEER 12:56 PM TIME STUDY ENGINEER Vanda Guerrero MD LAB - BLOOD ORDERABLES Performing Organization Address City/State/ZIP Code Phon e Number [address] [address] [facility] (ABNORMAL) Hemoglobin A1c (06/12/2017 12:55 PM TIME STUDY ENGINEER) athologist Signature Hemoglobin A1C 6.7 (H) 4.3 - 6.0 06/12/2017 [place] % 1:47 PM TIME STUDY ENGINEER [facility] Specimen Anatomical Collection Method Collection Time Receive d Time (Source) Location / / Volume Laterality Blood specimen 06/12/2017 12:55 8 (specimen) PM TIME STUDY ENGINEER 12:56 PM TIME STUDY ENGINEER Vanda Guerrero MD LAB - BLOOD ORDERABLES Performing Organization Address City/State/ZIP Code Phon e Number [address] [address] (ABNORMAL) Comprehensive metabolic panel (06/12/2017 12:55 PM TIME STUDY ENGINEER) [facility] gist Method Time Signature Sodium 147 (H) 133 - 144 06/13/2017 [facility] mmol/L 8:14 AM [facility] Potassium 4.5 3.4 - 5.3 06/13/2017 [facility] mmol/L 8:14 AM [facility] Chloride 112 (H) 94 - 109 06/13/2017 [facility] mmol/L 8:14 AM [facility] Carbon Dioxide 30 20 - 32 06/13/2017 [facility] mmol/L 8:14 AM [facility] Anion Gap 5 3 - 14 06/13/2017 [facility] mmol/L 8:14 AM [facility] Glucose 125 (H) 70 - 99 06/13/2017 [place] mg/dL 8:14 AM [facility] Urea Nitrogen 11 7 - 30 06/13/2017 [place] mg/dL 8:14 AM [facility] Creatinine 0.70 0.52 - 06/13/2017 [place] 1.04 mg/dL 8:14 AM [facility] GFR Estimate 87 >60 06/13/2017 [place] mL/min/1.7 8:14 AM [facility] m2 [facility] Comment: Non GFR Calc GFR Estimate If >90 >60 mL/min/1.7m2 06/13/2017 8:14 A M [facility] Black [facility] Comment: GFR Calc Calcium 9.2 8.5 - 10.1 06/13/2017 8:14 AM [facility] mg/dL [facility] Bilirubin Total 0.2 0.2 - 1.3 06/13/2017 8:14 AM [facility] mg/dL [facility] Albumin 3.6 3.4 - 5.0 g/dL 06/13/2017 8:14 AM [facility] EW [facility] Protein Total 7.4 6.8 - 8.8 g/dL 06/13/2017 8:14 AM [facility] [place] [facility] Alkaline Phosphatase 194 (H) 40 - 150 U/L 06/13/2017 8:14 AM [facility] ALT 31 0 - 50 U/L 06/13/2017 8:14 AM [place] C [facility] AST 25 0 - 45 U/L 06/13/2017 8:14 AM [facility] Specimen Anatomical Collection Method Collection Time Receive d Time (Source) Location / / Volume Laterality Blood specimen 06/12/2017 12:55 8 (specimen) PM TIME STUDY ENGINEER 12:56 PM TIME STUDY ENGINEER Vanda Guerrero MD LAB - BLOOD ORDERABLES Performing Organization Address City/State/ZIP Code Phon e Number [facility] [address] [place] [address] documented in this encounter Visit Diagnoses Diagnosis [...] documented as of this encounter Care Teams Credit Consultant Relationship Specialty Start Date End Date Vanda Guerrero MD PCP - General Internal Medicine 04/08/15 01/08/19 [address] [facility] [place] [id number] Vanda Guerrero MD PCP - Assigned PCP 07/24/16 06/15/18 [address] [facility] [place] [id number] documented as of this encounter
--- OUTSIDE RECORDS SUMMARY | 2022-01-17 22:33 | XMS_ITS | Encounter Summary ---
:1965 Author Organization [facility] Address [address] [place] [address] Care Team Providers Name Role Phone Vanda Guerrero MD Primary Care Provider [phone] Vanda Guerrero MD Unavailable Reason for Visit Reason Comments Medication Refill DULoxetine (CYMBALTA) 30 MG EC capsule Encounter Details Date Type Department Care Team Description 05/14/2017 Refill [facility] Vanda Guerrero M edication Refill Clinic Pino SALDANA (DULoxetine (CYMBALTA) [address] [place] [address] [facility] 30 MG EC capsule) [facility] [address] [place] [address] [place] [address] [phone] Social History Tobacco Use Types Packs/Day Years [...] How often do you attend lutheran or baptist Patient refused 08/08/2019 services? Do [...] in past 12 months Prescription approved per [facility] Refill Protocol. Kirsten Casillas, personal shopper Nurse HET BEADER Telephone Encounter - Marisa Matthew - 05/14/2017 7:32 AM CST [place] 09/25/2016 HET BEADER documented in this encounter Plan of Treatment Not on filedocumented as of this encounter Visit Diagnoses Diagnosis Fibromyalgia Mylagia and myositis, unspecified documented in this encounter Additional Health Concerns Assessment Noted Time PHQ-9 Depression Total Score: 9 10/12/2016 7:16 AM CDT documented as of this encounter Care Teams Pit Worker Power Shovel Relationship Specialty Start Date End Date Vanda Guerrero MD PCP - General Internal Medicine 04/08/15 01/08/[address] [place] [address] [place] [address] Vanda Guerrero MD PCP - Assigned PCP 07/24/16 06/15/[address] [place] [address] [place] [id number] documented as of this encounter
--- OUTSIDE RECORDS SUMMARY | 2022-01-17 22:33 | XMS_ITS | Encounter Summary ---
:1965 Author Organization [facility] Address [address] [place] [address] Care Team Providers Name Role Phone Vanda Guerrero MD Primary Care Provider [phone] Vanda Guerrero MD Unavailable Reason for Referral Diagnostic Imaging MRI - Closed Specialty Diagnoses / Procedures Referred By Contact Refer red To Contact Radiology. Diagnoses Rosalia Pagan APRN Mri Procedures MR Cervical Spine w/o Contrast CERTIFIED PERSONAL CHEF [address] [facility] [place], [place] [address] [place] [address] [address] [place] [address] Referral ID Status Reason Start Date Expiration Date Visits Requ ested Visits Authorized [id number] Closed 06/27/2017 06/27/2018 1 1 VERY MAN Reason for Visit Diagnostic Imaging MRI - Closed Specialty Diagnoses / Procedures Referred By Contact Refer red To Contact Radiology. Diagnoses Rosalia Pagan APRN Mri Procedures MR Cervical Spine w/o Contrast CERTIFIED PERSONAL CHEF [address] [facility] [place], [place] [address] [place] [address] [address] [place] [address] Referral ID Status Reason Start Date Expiration Date Visits Requ ested Visits Authorized [id number] Closed 06/27/2017 06/27/2018 1 1 Encounter Details Date Type Department Care Team Description 06/28/2017 Hospital Encounter [facility] Angella Main, Cervicalgia Imaging CYBER SECURITY SYSTEMS ENGINEER CERTIFIED PERSONAL CHEF [address] [facility] [place], [place] [address] [facility] [address] [address] [place] [address] (Wo rk) Social History Tobacco Use Types [...] How often do you attend mormon or adventist Patient refused 08/08/2019 services? Do [...] capsule 8 capsule 0 017 01/02/2019 D3) 25972 UNITS (50,000 Units) by capsuleIndications: mouth once [...] or female climacteric states fluticasone (FLONASE) 50 [place] 1-2 sprays 3 Bottle 3 06/1208/07/2019 MCG/ACT [...] Cervicalgia Resu lts for this W/O CONTRAST DELIVERY MAN procedure are i n the results section. documented in this encounter Results MR Cervical Spine w/o Contrast (06/28/2017 1:36 PM DELIVERY MAN) Anatomical Region Laterality Modality Spine, SUBRAD MR NEURO, UMP MR SPINE, RAD MR Magnetic Resonance Specimen (Source) Anatomical Location Collection Method / Collectio n Time Received Time / Laterality Volume Impressions 06/28/2017 2:37 PM DELIVERY MAN IMPRESSION: ?? 1. Anterior fusion at C5-C6 [...] MILAGROS JC MD Narrative 06/28/2017 2:37 PM DELIVERY MAN MRI CERVICAL SPINE WITHOUT CONTRAST June 28, [...] level. MILAGROS JC MD Rosalia Angeles Etelvina CYBER SECURITY SYSTEMS ENGINEER CERTIFIED PERSONAL CHEF IMG MRI ORDERABLES documented in this encounter Visit Diagnoses Diagnosis Cervicalgia documented in this encounter Additional Health Concerns Assessment Noted Time PHQ-9 Depression Total Score: 12 06/12/2017 1:02 PM CS T documented as of this encounter Care Teams Software Asset Management Analyst Relationship Specialty Start Date End Date Vanda Guerrero MD PCP - General Internal Medicine 04/08/15 01/08/19 [address] [facility] [place] [id number] Vanda Guerrero MD PCP - Assigned PCP 07/24/16 06/15/18 [address] [facility] [place] [id number] documented as of this encounter
--- OUTSIDE RECORDS SUMMARY | 2022-01-17 22:33 | XMS_ITS | Encounter Summary ---
:1965 Author Organization [facility] Address [address] [place] [address] Care Team Providers Name Role Phone Vanda Guerrero MD Primary Care Provider [phone] Vanda Guerrero MD Unavailable Reason for Visit Reason Comments Medication Refill citalopram (CELEXA) 20 MG ta blet-DUPLICATE Encounter Details Date Type Department Care Team Description 06/27/2017 Refill [facility] Vanda Guerrero M edication Refill Clinic Pino SALDANA (citalopram (CELEXA) 20 [address] [place] [address] [facility] MG ta blet-DUPLICATE) [facility] [address] [place] [address] [place] [address] [phone] Social History Tobacco Use Types Packs/Day Years [...] How often do you attend jainism or holiness Patient refused 08/08/2019 services? Do [...] CST Sent back as duplicate. Kirsten Casillas, retail business analyst Nurse EL SUPERVISOR Telephone Encounter - Marisa Matthew - 06/27/2017 7:59 AM CST Duplicate. citalopram (CELEXA) 20 MG tablet was filled on 06/12/2017, qty 135 with 3 refills. EL SUPERVISOR documented in this encounter Plan of Treatment Not on filedocumented as of this encounter Visit Diagnoses Diagnosis Anxiety Anxiety state, unspecified documented in this encounter Additional Health Concerns Assessment Noted Time PHQ-9 Depression Total Score: 12 06/12/2017 1:02 PM CS T documented as of this encounter Care Teams Speech Communication Instructor Relationship Specialty Start Date End Date Vanda Guerrero MD PCP - General Internal Medicine 04/08/15 01/08/19 [address] [facility] [address] [place], [place] [phone] Vanda Guerrero MD PCP - Assigned PCP 07/24/16 06/15/18 [address] [facility] [place] [id number] documented as of this encounter
--- OUTSIDE RECORDS SUMMARY | 2022-01-17 22:33 | XMS_ITS | Encounter Summary ---
:1965 Author Organization [facility] Address [address] [place] [address] Care Team Providers Name Role Phone Vanda Guerrero MD Primary Care Provider [phone] Vanda Guerrero MD Unavailable Reason for Visit Reason Comments Medication Refill omeprazole (PRILOSEC) 20 MG capsule Encounter Details Date Type Department Care Team Description 05/04/2017 Refill [facility] Vanda Guerrero M edication Refill Clinic Pino SALDANA (omeprazole (PRILOSEC) [address] [place] [address] [facility] 20 MG capsule) [facility] [address] [place] [address] [place] [address] [phone] Social History Tobacco Use Types Packs/Day Years [...] How often do you attend mormonism or taoist Patient refused 08/08/2019 services? Do [...] approved through 10/2019. Refills sent. Kirsten Casillas, window shade cutter and mounter Nurse RAFT LIFE SUPPORT FITTER Telephone Encounter - Marisa Matthew - 05/04/2017 8:18 AM CST YOSEL[place] 09/25/2016 RAFT LIFE SUPPORT FITTER documented in this encounter Plan of Treatment Not on filedocumented as of this encounter Visit Diagnoses Diagnosis Gastroesophageal reflux disease without esophagitis Esophageal reflux documented in this encounter Additional Health Concerns Assessment Noted Time PHQ-9 Depression Total Score: 9 10/12/2016 7:16 AM CDT documented as of this encounter Care Teams Hair Spring Winder Relationship Specialty Start Date End Date Vanda Guerrero MD PCP - General Internal Medicine 04/08/15 01/08/[address] [place] [address] [place] [id number] Vanda Guerrero MD PCP - Assigned PCP 07/24/16 06/15/[address] [place] [address] [place] [id number] documented as of this encounter
--- OUTSIDE RECORDS SUMMARY | 2022-01-17 22:34 | XMS_ITS | Encounter Summary ---
:1965 Author Organization [facility] Address [address] [place] [address] Care Team Providers Name Role Phone Vanda Guerrero MD Primary Care Provider [phone] Vanda Guerrero MD Unavailable Reason for Visit Reason Comments RECHECK pt still having some pain an d swelling where the incision was, gets more and more swollen throughout the day Encounter Details Date Type Department Care Team Description 12/19/2016 Office Visit [facility] Agatha Null, Left fo ot pain (Primary Dx); [facility] [place] DPM, Podiatry/Foot Acute left ankle pain; [address] [facility] Type 2 diabetes mellitus without complic ation, without long-term current use of insulin (H); [place] [address] Edema of left lower extremity; [address] [place] [address] cavus, congenital [phone] [place], [place] [id number] (Wo rk) Social History Tobacco Use Types [...] How often do you attend buddhism or pentecostalism Patient refused 08/08/2019 services? Do you belong to any clubs or organizations such as No 08/08/2019 buddhism groups, [employer], fraternal or athletic groups, or school groups? [...] LOCATIONS: SUNDAY AM - MIN SUNDAY - [place] [address] [facility] [address] [place] [address] [place] [address] / FX [phone] / FX [phone] SUNDAY - [place] SUNDAY AM - [facility] [address] [place] [address] [place] [address] / FX [phone] SUNDAY PM - [place] SCHEDULE SURGERY: [phone] [address] BILLING QUESTIONS: [phone] [place] [address] AFTER HOURS: / FX [phone] APPOINTMENTS: [phone] DIABETES AND YOUR FEET Diabetes can result [...] 2000 IU daily), Alpha-Lipoic Acid (600-1800mg daily), Xkhald-Y-Jejvfztxz (500-1000mg TID, L-methyl folate (1500mcgdaily) Metformin can [...] trim your own toenails contact [employer] ([phone]) or [employer] ([phone]). THINGS TO AVOID DOING 1. Do not [...] you smoke, stop!!! Home Medical Equipment: 1. [facility] [address] [email or web address], [phone] 2. [place] [facility] -[address] [address]: [address] [place] [address]. [place] (knee walkers and power scooters) - [address] [facility] [address] [place], or [address] [facility] [place], [phone]. 4. [facility] - [address], 5. [facility], [address] [place] [address]. Body Mass Index (BMI) Many things can [...] midfoot degenera tive arthrosis. ABRAHAM BAEZ MD Agatha [place] DPM, Podiatry/Foot [...] documented as of this encounter Care Teams Tap Puller Relationship Specialty Start Date End Date Vanda Guerrero MD PCP - General Internal Medicine 04/08/15 01/08/19 [address] [facility] [address] [place], [place] [phone] Vanda Guerrero MD PCP - Assigned PCP 07/24/16 06/15/18 [address] [facility] [place] [address] documented as of this encounter
--- OUTSIDE RECORDS SUMMARY | 2022-01-17 22:34 | XMS_ITS | Encounter Summary ---
:1965 Author Organization [facility] Address [address] [place] [address] Care Team Providers Name Role Phone Vanda Guerrero MD Primary Care Provider [phone] Vanda Guerrero MD Unavailable Reason for Visit Reason Onset Date Comments Prior Auth - Medication 11/07/2016 omeprazole (PRIL OSEC) 20 MG capsule Encounter Details Date Type Department Care Team Description 11/07/2016 Telephone [facility] Vanda Guerrero [facility] - Clinic Pino Toribio MD Medication (omeprazole [address] [place] [address] [facility] (PRIL OSEC) 20 [address] [facility] DR capsule) [address] [place] [address] [place] [phone] [phone] Social History Tobacco Use Types Packs/Day Years [...] How often do you attend congregation or pentecostalism Patient refused 08/08/2019 services? Do [...] approval, they will inform pt. Auth #: [id number] Lori Weber MA Telephone Encounter - Lori Weber - 11/07/2016 9:40 AM CDT Received notice from pharmacy that medication is not covered. Medication: omeprazole (PRILOSEC) 20 MG capsule Insurance phone # : [phone] BIN :[id number] PCN: BRYAN GROUPRX: [id number] documented in this encounter Plan of Treatment Not on filedocumented as of this encounter Visit Diagnoses Not on filedocumented in this encounter Additional Health Concerns Assessment Noted Time PHQ-9 Depression Total Score: 9 10/12/2016 7:16 AM CDT documented as of this encounter Care Teams Manager Consumer Insights Relationship Specialty Start Date End Date Vanda Guerrero MD PCP - General Internal Medicine 04/08/15 01/08/19 [address] [facility] [place] [address] Vanda Guerrero MD PCP - Assigned PCP 07/24/16 06/15/18 [address] [facility] [place] [address] documented as of this encounter
--- OUTSIDE RECORDS SUMMARY | 2022-01-17 22:34 | XMS_ITS | Encounter Summary ---
:1965 Author Organization [place] Address [address] [place] [address] Care Team Providers Name Role Phone Vanda Guerrero MD Primary Care Provider [phone] Reason for Visit Reason Comments Surgical Followup Left peroneal tendon repair and transfer DOS 06/10/16 Encounter Details Date Type Department Care Team Description 07/18/2016 Office Visit [facility] Agatha Null, Post-op [facility] DPM, Podiatry/Foot (Primary Dx) [address] [facility] [place] [address] [place] [address] [place] [address] [place], [place] [address] (Wo rk) Social History Tobacco Use Types [...] How often do you attend restorationism or amish Patient refused 08/08/2019 services? Do [...] Comments Blood Pressure 118/78 07/18/2016 9:54 AM FLIGHT CREW TIME CLERK Pulse - - Temperature - - Respiratory Rate - - Oxygen Saturation - - Inhaled Oxygen Concentration - - Weight 86.6 kg (191 lb) 07/18/2016 9:54 AM FLIGHT CREW TIME CLERK Height 157.5 cm (5' 2) 07/18/2016 9:54 AM FLIGHT CREW TIME CLERK Body Mass Index 34.93 07/18/2016 9:54 AM FLIGHT CREW TIME CLERK documented in this encounter Patient Instructions Patient InstructionsLarry Michael - 07/18/2016 10:[address] [facility] Schedule Follow up in 1 month Sunday AM Sunday [facility] [address] [address] [facility] [address] [address] [place] [address] [facility] [address] [place] [address] Sunday PM & Sunday AM Sunday PM Surgery Scheduling Line: [phone] [facility] [place] [address] [place] [address] [facility] [address] [place] [address] Appointment [phone] General After Hours: Patient [phone] HT CREW TIME CLERK documented in this encounter Progress Notes Agatha Null, MARÍA, Podiatry/Foot and Ankle Surgery - 07/18/2016 9:58 AM FLIGHT CREW TIME CLERK Podiatry / Foot and Ankle Surgery Progress [...] kg). Medication Reconciliation: complete Larry Michael MA HT CREW TIME CLERK documented in this encounter Plan of Treatment Not on filedocumented as of this encounter Visit Diagnoses Diagnosis Post-operative state - Primary Other postprocedural status documented in this encounter Additional Health Concerns Assessment Noted Time PHQ-9 Depression Total Score: 11 05/02/2016 7:09 AM CS T documented as of this encounter Care Teams Pin Setter Relationship Specialty Start Date End Date Vanda Guerrero MD PCP - General Internal Medicine 04/08/15 01/08/19 0326 [facility] [place] [address] documented as of this encounter
--- OUTSIDE RECORDS SUMMARY | 2022-01-17 22:34 | XMS_ITS | Encounter Summary ---
:1965 Author Organization [place] Address [address] [place] [address] Care Team Providers Name Role Phone Vanda Guerrero MD Primary Care Provider [phone] Vanda Guerrero MD Unavailable Reason for Visit Reason Comments Medication Refill topiramate (TOPAMAX) 50 MG t ablet Encounter Details Date Type Department Care Team Description 12/11/2016 Refill [facility] Vanda Guerrero M edication Refill Clinic [place] SALDANA (topiramate (TOPAMAX) [address] [place] [address] [facility] 50 MG tablet) [facility] [address] [place] [address] [place] [address] [phone] Social History Tobacco Use Types Packs/Day Years [...] How often do you attend bahai or shinto Patient refused 08/08/2019 services? Do [...] documented as of this encounter Care Teams Disaster Recovery Manager Relationship Specialty Start Date End Date Vanda Guerrero MD PCP - General Internal Medicine 04/08/15 01/08/[address] [place] [address] [place] [address] Vanda Guerrero MD PCP - Assigned PCP 07/24/16 06/15/[address] [place] [address] [place] [address] documented as of this encounter
--- OUTSIDE RECORDS SUMMARY | 2022-01-17 22:34 | XMS_ITS | Encounter Summary ---
:1965 Author Organization [place] Address [address] [place] [address] Care Team Providers Name Role Phone Vanda Guerrero MD Primary Care Provider [phone] Vanda Guerrero MD Unavailable Reason for Visit LINUS Physical Therapy (Routine) - Closed Specialty Diagnoses / Procedures Referred By Contact Refer red To Contact Physical Therapy Diagnoses new pt needs paperwork post peroneal tendon repair surgery left foot. / Agatha Null DPM, Pod @ Cr Podiatry Agatha Null DPM, Candy Disla, PT Procedures EXTREMITY INITIAL Podiatry/Foot and [facility] [address] [place] [address] [place] [address] [place] [address] Referral ID Status Reason Start Date Expiration Date Visits V isits Requested Authorized LINUS/BC/LFOOT Closed 07/03/2016 06/10/2017 20 18 Encounter Details Date Type Department Care Team Description 08/04/2016 [facility], [facility]le p ain, left; Rehabilitation PT Aftercare following surgery of the [facility] Services [facility] [address] [facility] [address] [place] [address] [place] [phone] [address] Social History Tobacco Use Types Packs/Day [...] How often do you attend sikhism or mormonism Patient refused 08/08/2019 services? 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 Aftercare following surgery of the musculoskeletal system Z THERAPEUTIC Routine 08/04/2016 10:35 AM Ankle pain, left EXERCISES NETSUITE DEVELOPER Aftercare following surgery of the musculoskeletal system documented in this encounter Visit Diagnoses Diagnosis Ankle pain, left Pain in joint, ankle and foot Aftercare following surgery of the muscu loskeletal system Aftercare following surgery of the [facility], NEC documented in this encounter Additional Health Concerns Assessment Noted Time PHQ-9 Depression Total Score: 11 05/02/2016 7:09 AM CS T documented as of this encounter Care Teams Nurse Educator Relationship Specialty Start Date End Date Vanda Guerrero MD PCP - General Internal Medicine 04/08/15 01/08/19 3305 [facility] [place] [address] Vanda Guerrero MD PCP - Assigned PCP 07/24/16 06/15/[address] [place] [address] [place] [address] documented as of this encounter
--- OUTSIDE RECORDS SUMMARY | 2022-01-17 22:34 | XMS_ITS | Encounter Summary ---
:1965 Author Organization [place] Address [address] [place] [address] Care Team Providers Name Role Phone Vanda Guerrero MD Primary Care Provider [phone] Vanda Guerrero MD Unavailable Reason for Visit Reason Onset Date Comments Refill Request 09/19/2016 ONE TOUCH ULTRA TEST STRIPS Encounter Details Date Type Department Care Team Description 09/19/2016 Refill [facility] Vanda Guerrero R efill Request (ONE Clinic Pino SALDANA TOUCH ULTRA TEST [address] [place] 3305 [facility] STRIP S) [facility] [address] [place] [address] [place] [address] [phone] Social History Tobacco Use Types Packs/Day Years [...] How often do you attend pentecostal or pentecostalism Patient refused 08/08/2019 services? Do [...] CDT [facility] with [facility] [address] [place] [address] [address] [facility] [address] documented in this encounter Plan of Treatment Not on filedocumented as of this encounter Visit Diagnoses Diagnosis Type 2 diabetes mellitus without complic ation (H) - Primary documented in this encounter Additional Health Concerns Assessment Noted Time PHQ-9 Depression Total Score: 11 05/02/2016 7:09 AM CS T documented as of this encounter Care Teams Relationship Consultant Relationship Specialty Start Date End Date Vanda Guerrero MD PCP - General Internal Medicine 04/08/15 01/08/[address] [place] [address] [place] [address] Vanda Guerrero MD PCP - Assigned PCP 07/24/16 06/15/[address] [place] [address] [place] [address] documented as of this encounter
--- OUTSIDE RECORDS SUMMARY | 2022-01-17 22:34 | XMS_ITS | Encounter Summary ---
:1965 Author Organization [place] Address [address] [place] [address] Care Team Providers Name Role Phone Vanda Guerrero MD Primary Care Provider [phone] Vanda Guerrero MD Unavailable Reason for Visit Reason Onset Date Comments Refill Request 11/29/2016 not needed - choleca lciferol (VITAMIN D3) 96011 UNITS capsule Encounter Details Date Type Department Care Team Description 11/29/2016 Refill [facility] Vanda Guerrero Refill Request (not needed Clinic Pino Toribio MD - cholecalciferol (VITAMIN [address] [place] [address] [place] D3) 5 0000 UNITS capsule) [facility] [address] [place] [address] [place] [address] [phone] Social History Tobacco Use Types Packs/Day Years [...] How often do you attend hinduism or adventism Patient refused 08/08/2019 services? Do [...] the patient. I will also send a Nan[employer] message. Telephone Encounter - Marisa Matthew - 11/29/2016 4:03 PM CDT cholecalciferol (VITAMIN D3) 26143 UNITS capsule Last Written Prescription Date: 09/27/2016 Last Fill Quantity: 8, # refills: 0 Last Office Visit with [facility], P or [facility] prescribing provider: 09/25/2016 documented in this encounter Plan of Treatment Not on filedocumented as of this encounter Visit Diagnoses Diagnosis Vitamin D deficiency Unspecified vitamin D deficiency documented in this encounter Additional Health Concerns Assessment Noted Time PHQ-9 Depression Total Score: 9 10/12/2016 7:16 AM CDT documented as of this encounter Care Teams Photograph Enlarger Relationship Specialty Start Date End Date Vanda Guerrero MD PCP - General Internal Medicine 04/08/15 01/08/19 [address] [facility] [place] [address] Vanda Guerrero MD PCP - Assigned PCP 07/24/16 06/15/18 [address] [facility] [place] [address] documented as of this encounter
--- OUTSIDE RECORDS SUMMARY | 2022-01-17 22:34 | XMS_ITS | Encounter Summary ---
:1965 Author Organization [place] Address [address] [place] [address] Care Team Providers Name Role Phone Vanda Guerrero MD Primary Care Provider Vanda Guerrero MD Unavailable Reason for Referral Specialty Diagnoses / Procedures Referred By Contact Refer red To Contact [facility] [address] [place] [address] [place] [id number] Referral ID Status Reason Start Date Expiration Date Visits Requ ested Visits Authorized Reason for Visit Reason Comments Medication Therapy Management Encounter Details Date Type Department Care Team Description 10/11/2016 Office Visit [facility] Sandy Joe Fibrom yalgia (Primary Dx); Clinic Pino Jerez RPH Non morbid obesity, unspecified obesity type; [address] [place] [address] BENI ANDRE Type 2 diabetes mellitus without complic ation, without long-term current use of insulin (H); [address] [place] [address] Vitamin D deficiency; [address] Anxiety; DAVID Pringle (Work) Moderate episod e of recurrent major depressive disorder (H); [address] Gastroesophageal reflux dise ase without esophagitis; [phone] Hyperlipidemia LDL goal <100; Migraine withou t [...] How often do you attend religion or sabianism Patient refused 08/08/2019 services? Do [...] this encounter Patient Instructions Patient InstructionsSandy Joe, [facility] - 10/11/2016 2:30 PM CDT Recommendations from today's MTM visit: MTM (medication therapy management) is a service provided by a clinical pharmacist designed to help you get the most of out of your medicines. Vitamin D deficiency: After 50,000 IU aim for 2,000 IU of vitamin D (look in your multivitamin) Diabetes: Stop metformin. Meet with territory business manager. Migraines: Change topiramate to 50mg twice daily. [...] may call the MTM scheduling line at [phone] or toll-free at . My Clinical Pharmacist's contact information: It was a pleasure seeing you today! Please feel free to contact me with any questions or concerns you have. Sandy Joe, [facility] Medication Therapy Management Practitioner #[phone] You may receive a survey about the [...] Wants to decrease weight. Allergies/ADRs: Reviewed in [employer] Tobacco: No tobacco use Alcohol: Less than 1 beverage / month Caffeine: no caffeine Activity: She is not exercising due to foot surgery, torn tendons PMH: Reviewed in [facility] Medication Adherence: no issues reported and sets [...] Weight gain: Needs improvement. Discussed meeting with neurology specialist and continuing topiramate for now. Give consideration [...] your multivitamin) Diabetes: Stop metformin. Meet with territory business manager, CDE referral placed. Migraines: Change topiramate to [...] Cost of services discussed before visit, see [facility]. Note. All changes were made via collaborative practice agreement with Vanda Guerrero. A copy of the visit note was provided to the patient's primary care provider. The patient was given a summary of these recommendations as an after visit summary. Sandy Joe PharmD [facility] Medication Therapy Management Practitioner VM #[phone] documented in this encounter Plan of Treatment [...] documented as of this encounter Care Teams Private Equity Associate Relationship Specialty Start Date End Date Vanda Guerrero MD PCP - General Internal Medicine 04/08/15 01/08/19 [address] [facility] [place] [address] Vanda Guerrero MD PCP - Assigned PCP 07/24/16 06/15/18 3309 [facility] [place] [address] documented as of this encounter
--- OUTSIDE RECORDS SUMMARY | 2022-01-17 22:34 | XMS_ITS | Encounter Summary ---
:1965 Author Organization [place] Address [address] [place] [address] Care Team Providers Name Role Phone Vanda Guerrero MD Primary Care Provider [phone] Vanda Guerrero MD Unavailable Reason for Visit (Routine) - Closed Specialty Diagnoses / Procedures Referred By Contact Refer red To Contact Radiology / Radiology. Diagnoses EPIC ORDER, sb [place] [address] [place] [address] [place] [address] Phone: Fax: Referral ID Status Reason Start Date Expiration Date Visits Requ ested Visits Authorized [id number] Closed 12/25/2016 12/22/2017 1 1 Encounter Details Date Type Department Care Team Description 12/25/2016 Hospital Encounter [facility] Agatha Null E leopoldo of left lower extremity; [facility] DPM, Left foot pain; [address] [place] [facility]/Foot and Acute le ft ankle pain; Drive [address] Ankle Surgery Type 2 diabetes mellitus without complic ation, without long-term current use of insulin (H) [place] [address] [place] [address] [facility] [address] [place] [address] Social History Tobacco Use Types [...] How often do you attend hinduism or synagogue Patient refused 08/08/2019 services? Do [...] capsule 8 capsule 0 017 01/02/2019 D3) 46406 UNITS (50,000 Units) by capsuleIndications: mouth once [...] or female climacteric states fluticasone (FLONASE) 50 [place] 1-2 sprays 3 Bottle 3 05/0306/12/2017 MCG/ACT [...] documented as of this encounter Care Teams Reordering Clerk Relationship Specialty Start Date End Date Vanda Guerrero MD PCP - General Internal Medicine 04/08/15 01/08/19 3305 [facility] [place] [address] Vanda Guerrero MD PCP - Assigned PCP 07/24/16 06/15/18 [address] [facility] [place] [address] documented as of this encounter
--- OUTSIDE RECORDS SUMMARY | 2022-01-17 22:34 | XMS_ITS | Encounter Summary ---
:1965 Author Organization [place] Address [address] [place] [address] Care Team Providers Name Role Phone Vanda Guerrero MD Primary Care Provider [phone] Vanda Guerrero MD Unavailable Reason for Visit Reason Comments Surgical Followup Left peroneal tendon repair and transfer DOS 06/08/16 Encounter Details Date Type Department Care Team Description 08/15/2016 Office Visit [facility] Agatha Null, Post-op erative state (Primary Dx); Clinic [place] DPM, Podiatry/Foot Type 2 diabetes mellitus wit hout complication, without long- term current use of insulin (H); [address] and Ankle Surgery Peroneal tendon tear, right, [place] [address] [place] [address] [facility] [address] [place], [place] [address] (Wo rk) Social History Tobacco Use Types [...] How often do you attend spiritism or shinto Patient refused 08/08/2019 services? Do [...] Comments Blood Pressure 114/74 08/15/2016 9:54 AM SPEECH COMMUNICATION PROFESSOR Pulse - - Temperature - - Respiratory Rate - - Oxygen Saturation - - Inhaled Oxygen Concentration - - Weight 86.6 kg (191 lb) 08/15/2016 9:54 AM SPEECH COMMUNICATION PROFESSOR Height 157.5 cm (5' 2) 08/15/2016 9:54 AM SPEECH COMMUNICATION PROFESSOR Body Mass Index 34.93 08/15/2016 9:54 AM SPEECH COMMUNICATION PROFESSOR documented in this encounter Patient Instructions Patient InstructionsLarry Michael - 08/15/2016 10:[address] [facility] Schedule Follow up in 2 months Sunday AM Sunday [facility] [address] [place] [address] [facility] [address] [place] [address] [facility] [address] [place] [address] Sunday PM & Sunday AM Sunday PM Surgery Scheduling Line: [phone] [facility] [place] [address] [place] [address] [facility] [address] [place] [address] [place] [address] Appointment [phone] General After Hours: Patient [phone] To Schedule surgery, Call: [phone] CH COMMUNICATION PROFESSOR documented in this encounter Progress Notes Agatha Null, DPM, Podiatry/Foot and Ankle Surgery - 08/15/2016 10:00 AM SPEECH COMMUNICATION PROFESSOR Podiatry / Foot and Ankle Surgery Progress [...] kg). Medication Reconciliation: complete Larry Michael MA CH COMMUNICATION PROFESSOR documented in this encounter Plan of Treatment [...] documented as of this encounter Care Teams Ion Exchange Operator Relationship Specialty Start Date End Date Vanda Guerrero MD PCP - General Internal Medicine 04/08/15 01/08/19 1625 [facility] [place] [address] Vanda Guerrero MD PCP - Assigned PCP 07/24/16 06/15/18 3303 [facility] [place] [address] documented as of this encounter
--- OUTSIDE RECORDS SUMMARY | 2022-01-17 22:34 | XMS_ITS | Encounter Summary ---
:1965 Author Organization [place] Address [address] [place] [address] Care Team Providers Name Role Phone Vanda Guerrero MD Primary Care Provider [phone] Vanda Guerrero MD Unavailable Reason for Visit LINUS Physical Therapy (Routine) - Closed Specialty Diagnoses / Procedures Referred By Contact Refer red To Contact Physical Therapy Diagnoses new pt needs paperwork post peroneal tendon repair surgery left foot. / Agatha Null DPM, Pod @ Cr Podiatry Agatha Null DPM, Candy Disla, PT Procedures EXTREMITY INITIAL Podiatry/Foot and [facility] Ankle Surgery CENTER [address] [place] [address] [place] [address] [place] [address] Referral ID Status Reason Start Date Expiration Date Visits V isits Requested Authorized LINUS/BC/LFOOT Closed 07/03/2016 06/10/2017 20 18 Encounter Details Date Type Department Care Team Description 08/18/2016 [facility], Ankle p ain, left; Rehabilitation PT Aftercare following surgery of the [facility] Services [facility] [address] [facility] [address] [place] [address] [place], [place] [phone] [address] Social History Tobacco Use Types Packs/Day [...] How often do you attend alevism or gnosticist Patient refused 08/08/2019 services? 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 Aftercare following surgery of the musculoskeletal system [facility] THERAPEUTIC Routine 08/18/2016 10:39 AM Ankle pain, left EXERCISES SECOND RIGGER Aftercare following surgery of the musculoskeletal system documented in this encounter Visit Diagnoses Diagnosis Ankle pain, left Pain in joint, ankle and foot Aftercare following surgery of the muscu loskeletal system Aftercare following surgery [facility] the [facility], NEC documented in this encounter Additional Health Concerns Assessment Noted Time PHQ-9 Depression Total Score: 11 05/02/2016 7:09 AM CS T documented as of this encounter Care Teams Perianesthesia Manager Relationship Specialty Start Date End Date Vanda Guerrero MD PCP - General Internal Medicine 04/08/15 01/08/19 [address] [facility] [place] [address] Vanda Guerrero MD PCP - Assigned PCP 07/24/16 06/15/[address] [place] [address] [place] [address] documented as of this encounter
--- OUTSIDE RECORDS SUMMARY | 2022-01-17 22:34 | XMS_ITS | Encounter Summary ---
:1965 Author Organization [place] Address [address] [place] [address] Care Team Providers Name Role Phone Vanda Guerrero MD Primary Care Provider [phone] Vanda Guerrero MD Unavailable Reason for Visit Reason Onset Date Comments Refill Request 12/10/2016 tiZANidine (ZANAFLEX ) 4 MG tablet Encounter Details Date Type Department Care Team Description 12/10/2016 Refill [facility] Vanda Guerrero R efill Request Clinic Pino SALDANA (tiZANidine (ZANAFLEX) [address] [place] 8510 [facility] 4 MG tablet) [facility] [address] [place] [address] [place] [address] [phone] Social History Tobacco Use Types Packs/Day Years [...] Agatha Null DPM, Podiatry/Foot and Ankle Surgery [facility] [address] [place] [address] Routing refill request to provider for review/approval [...] as of this encounter Care Teams Thread Clipper Relationship Specialty Start Date End Date Vanda Guerrero MD PCP - General Internal Medicine 04/08/15 01/08/[address] [place] [address] [place] [address] Vanda Guerrero MD PCP - Assigned PCP 07/24/16 06/15/[address] [place] [address] [place] [address] documented as of this encounter
--- OUTSIDE RECORDS SUMMARY | 2022-01-17 22:34 | XMS_ITS | Encounter Summary ---
:1965 Author Organization [facility] Address [address] [place] [address] Care Team Providers Name Role Phone Vanda Guerrero MD Primary Care Provider [phone] Vanda Guerrero MD Unavailable Reason for [...] [facility] [address] [place] [address] [place] [address] [place] [address] Referral ID Status Reason Start Date Expiration Date Visits V isits Requested Authorized LINUS/BC/LFOOT Closed 07/03/2016 06/10/2017 20 18 Encounter Details Date Type Department Care Team Description 08/11/2016 [facility], [facility]; Rehabilitation PT Aftercare following surgery of the [facility] Services [facility] [address] [facility] [address] [place] [address] [place], [place] [phone] [address] Social History Tobacco Use Types Packs/Day [...] How often do you attend baptist or hoahaoism Patient refused 08/08/2019 services? Do [...] short term goals and is progressing towards joint terminal attack controller goals. Self Management Plans: Patient has been [...] and time spent performing 1:1 timed codes. DING SPECIALIST documented in this encounter Plan of Treatment Not on filedocumented as of this encounter Procedures Procedure Name Priority Date/Time Associated Diagnosis Comme nts [facility] NEUROMUSCULAR Routine 08/11/2016 10:38 AM Ankle pain , left RE-EDUCATION BOARDING SPECIALIST Aftercare following surgery of the musculoskeletal system [facility] THERAPEUTIC Routine 08/11/2016 10:38 AM Ankle pain, left EXERCISES BOARDING SPECIALIST Aftercare following surgery of the musculoskeletal system documented in this encounter Visit Diagnoses Diagnosis Ankle pain, left Pain in joint, ankle and foot [facility]care [facility] Aftercare following [facility] the [facility], NEC documented in this encounter Additional Health Concerns Assessment Noted Time PHQ-9 Depression Total Score: 11 05/02/2016 7:09 AM CS T documented as of this encounter Care Teams Access Rep Relationship Specialty Start Date End Date Vanda Guerrero MD PCP - General Internal Medicine 04/08/15 01/08/[address] [place] [address] [place] [id number] Vanda Guerrero MD PCP - Assigned PCP 07/24/16 06/15/[address] [place] [address] [place] [id number] documented as of this encounter
--- OUTSIDE RECORDS SUMMARY | 2022-01-17 22:34 | XMS_ITS | Encounter Summary ---
:1965 Author Organization [facility] Address [address] [place] [address] Care Team Providers Name Role Phone Vanda Guerrero MD Primary Care Provider [phone] Vanda Guerrero MD Unavailable Reason for Visit Reason Onset Date Comments Refill Request 10/06/2016 blood glucose monito ring (ONE TOUCH DELICA) lancets Encounter Details Date Type Department Care Team Description 10/06/2016 Refill [employer] Vanda Guerrero R efill Request (blood Clinic [facility]ino SALDANA glucose monitoring (ONE [address] [place] TOUCH DELICA) lancets) [facility] [address] [place] [address] [place] [address] [phone] Social History Tobacco Use Types Packs/Day Years [...] How often do you attend quaker or faith Patient refused 08/08/2019 services? Do [...] 10/06/2016 11:35 AM CDT Prescription approved per [facility] Refill Protocol. Kirsten Casillas, weather algorithm scientist Nurse Telephone Encounter - Meri Palma - 10/06/2016 10:11 AM CDT blood glucose monitoring (ONE TOUCH DELICA) lancets Last Written Prescription Date: 10/07/15 Last Fill Quantity: 1 box, # refills: prn Last Office Visit with [facility], [facility] or [facility] prescribing provider: 09/25/16 Next 5 appointments (look out 90 days) October 11, 2016 2:30 PM CDT [facility] [place] [facility] [address] [place] [address] [address] [facility] [address] BP Readings from Last 3 Encounters: [...] documented as of this encounter Care Teams Beeswax Bleacher Relationship Specialty Start Date End Date Vanda Guerrero MD PCP - General Internal Medicine 04/08/15 01/08/19 [address] [facility] [place] [address] Vanda Guerrero MD PCP - Assigned PCP 07/24/16 06/15/18 [address] [facility] [place] [id number] documented as of this encounter
--- OUTSIDE RECORDS SUMMARY | 2022-01-17 22:34 | XMS_ITS | Encounter Summary ---
:1965 Author Organization [facility] Address [address] [place] [address] Care Team Providers Name Role Phone Vanda Guerrero MD Primary Care Provider [phone] Vanda Guerrero MD Unavailable Reason for Visit (Routine) - Closed Specialty Diagnoses / Procedures Referred By Contact Refer red To Contact Cardiology Diagnoses EPIC ORDER SB PT PREP INFORMED [facility] Electrocardiology Procedures EKG STRESS NM L[facility]AN [address] [place], [place] [address] Phone: Referral ID Status Reason Start Date Expiration Date Visits Requ ested Visits Authorized [id number] Closed 10/17/2016 10/17/2017 1 1 Encounter Details Date Type Department Care Team Description 10/17/2016 Hospital Encounter [facility] Vanda Watkins history of PA (myocardial infarction); Electrocardiolgy MD Catarino Atypical chest pain [address] [place], [place] [address] [place] [address] Social History Tobacco Use Types [...] How often do you attend spiritism or confucianism Patient refused 08/08/2019 services? Do you belong to any clubs or organizations such as No 08/08/2019 spiritism groups, [employer], fraternal or athletic groups, or school groups? [...] capsule 8 capsule 0 017 01/02/2019 D3) 00157 UNITS (50,000 Units) by capsuleIndications: mouth once [...] climacteric states times weekly fluticasone (FLONASE) [address] [place] 1-2 sprays 3 Bottle 3 05/0306/12/2017 MCG/ACT [...] Routine 10/17/2016 2:34 PM Family history of PA R esults for this LEXISCAN CDT (myocardial [...] LEXISCAN -ONE DAY STUDY 10/17/2016 2:34 PM MEGANLAURA CHOI 51 years Female 1965. Indication/Clinical History: [...] rest. TID was absent. MARRY TRACEY MD Vanda Guerrero MD IMG NM ORDERABLES documented in this encounter Visit Diagnoses Diagnosis Family history of PA (myocardial infarct ion) Family history of ischemic [...] documented as of this encounter Care Teams Soda Clerk Relationship Specialty Start Date End Date Vanda Guerrero MD PCP - General Internal Medicine 04/08/15 01/08/19 [address] [facility] [place] [id number] Vanda Guerrero MD PCP - Assigned PCP 07/24/16 06/15/18 [address] [facility] [place] [id number] documented as of this encounter
--- OUTSIDE RECORDS SUMMARY | 2022-01-17 22:34 | XMS_ITS | Encounter Summary ---
:1965 Author Organization [facility] Address [facility] [place] [address] Care Team Providers Name Role Phone Vanda Guerrero MD Primary Care Provider [phone] Reason for Visit Reason Comments Facial Pain 2-3 days, left side of face, swelling, pain with eating, tender to the touch. URI 1 week, fever, congestion, c ough, ear pain and dizziness. Encounter Details Date Type Department Care Team Description 07/13/2016 Office Visit [facility] Santos Alegria Acute si nusitis with symptoms > 10 days (Primary Dx); Urgent Care Pino Benítez PA-C Acute suppurative otitis media of both e ars without spontaneous rupture of tympanic membranes, recurrence not specified [id number] [place] [address] [address] [address] [place] [address] Social History Tobacco Use [...] How often do you attend sikh or zoroastrian Patient refused 08/08/2019 services? Do [...] Comments Blood Pressure 112/68 07/13/2016 11:09 AM ORCHID GROWER Pulse 94 07/13/2016 11:09 AM ORCHID GROWER Temperature 37.1 ??C (98.7 ??F) 07/13/2016 11:09 AM ORCHID GROWER Respiratory Rate - - Oxygen Saturation 98% 07/13/2016 11:09 AM ORCHID GROWER Inhaled Oxygen Concentration - - Weight 86.6 kg (191 lb) 07/13/2016 11:09 AM ORCHID GROWER Height 157.5 cm (5' 2) 07/13/2016 11:09 AM ORCHID GROWER Body Mass Index 34.93 07/13/2016 11:09 AM ORCHID GROWER documented in this encounter Patient Instructions Patient [...] a towel soaked in hot water. Or, sale professional digital marketing theshower and direct the hot spray onto your face. Using a vaporizer along with a menthol rub at night may also help.? An??expectorant??containing guaifenesin may help thin the mucus and promote drainage from the sinuses. ?? Bsdt-wyd-sjlrvqa??decongestants??may be used unless a similar medicine was [...] decongestants. They can raise blood pressure.) ?? Ozou-cfx-skteolz??antihistamines??may help if allergies contributed to your sinusitis. [...] Symptoms not resolving within 10 days ?? [phone] [employer] [address] [place] [address]. All rights reserved. This information is not intended as a substitute for professional medical care. Always follow your healthcare professional's instructions. ID GROWER documented in this encounter Progress Notes Santos [...] fail to fully resolve with above tx. ID GROWER documented in this encounter Nursing Notes Gisele [...] using cuff size: large Gisele Patel MA ID GROWER documented in this encounter Plan of Treatment [...] documented as of this encounter Care Teams Fitness Professional Relationship Specialty Start Date End Date Vanda Guerrero MD PCP - General Internal Medicine 04/08/15 01/08/[address] [facility] [address] [place], [place] [address] documented as of this encounter
--- OUTSIDE RECORDS SUMMARY | 2022-01-17 22:34 | XMS_ITS | Encounter Summary ---
:1965 Author Organization [facility] Address [address] [place] [address] Care Team Providers Name Role Phone Vanda Guerrero MD Primary Care Provider [phone] Reason for Visit LINUS Physical Therapy (Routine) - Closed Specialty Diagnoses / Procedures Referred By Contact Refer red To Contact Physical Therapy Diagnoses new pt needs paperwork post peroneal tendon repair surgery left foot. / Agatha Null DPM, Pod @ [facility] Agatha Null DPM, Candy Disla, PT Procedures EXTREMITY INITIAL Podiatry/Foot and [facility]ENTER [address] [place] [address] [facility] [address] [place] [address] [place] [address] Referral ID Status Reason Start Date Expiration Date Visits V isits Requested Authorized LINUS/BC/LFOOT Closed 07/03/2016 06/10/2017 20 18 Encounter Details Date Type Department Care Team Description 07/14/2016 [facility], left (Primary Dx); Rehabilitation PT Aftercare following surgery of the [facility] Services [facility] [address] [facility] [place] [address] [place], [place] [address] Social History Tobacco Use Types Packs/Day Years [...] How often do you attend sikh or yazidism Patient refused 08/08/2019 services? 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 Aftercare following surgery of the musculoskeletal system [facility] THERAPEUTIC Routine 07/14/2016 10:49 AM Ankle pain, left EXERCISES WALL ATTENDANT Aftercare following surgery of the musculoskeletal system documented in this encounter Visit Diagnoses Diagnosis Ankle pain, left - Primary Pain in joint, ankle and foot Aftercare following surgery of the muscu loskeletal system Aftercare following surgery of the [facility], NEC documented in this encounter Additional Health Concerns Assessment Noted Time PHQ-9 Depression Total Score: 11 05/02/2016 7:09 AM CS T documented as of this encounter Care Teams Track Welder Relationship Specialty Start Date End Date Vanda Guerrero MD PCP - General Internal Medicine 04/08/15 01/08/19 [address] [facility] [place] [address] documented as of this encounter
--- OUTSIDE RECORDS SUMMARY | 2022-01-17 22:34 | XMS_ITS | Encounter Summary ---
:1965 Author Organization [facility] Address [address] [place] [address] Care Team Providers Name Role Phone Vanda Guerrero MD Primary Care Provider [phone] Vanda Guerrero MD Unavailable Reason for Visit Reason Onset Date Comments Refill Request 11/01/2016 gabapentin (NEURONTI N) 300 MG capsule Encounter Details Date Type Department Care Team Description 11/01/2016 Refill [facility] Vanda Guerrero R efill Request Clinic Pino SALDANA (gabapentin (NEURONTIN) [address] [facility] 300 M G capsule) [facility] [address] [place] [address] [place] [address] [phone] Social History Tobacco Use Types Packs/Day Years [...] How often do you attend sabianism or samaritan Patient refused 08/08/2019 services? Do [...] # refills: 11 Last Office Visit with [facility] or Health prescribing provider: 09/25/16 Future Office visit: Routing refill request to provider for review/approval because: Drug not on the [facility] or [facility] refill protocol or [...] documented as of this encounter Care Teams Jewelry Bench Worker Relationship Specialty Start Date End Date Vanda Guerrero MD PCP - General Internal Medicine 04/08/15 01/08/[address] [facility] [place] [address] Vanda Guerrero MD PCP - Assigned PCP 07/24/16 06/15/[address] [facility] [place] [address] documented as of this encounter
--- OUTSIDE RECORDS SUMMARY | 2022-01-17 22:34 | XMS_ITS | Encounter Summary ---
:1965 Author Organization [place] Address [address] [place] [address] Care Team Providers Name Role Phone Vanda Borja MD Primary Care Provider [phone] Vanda Borja MD Unavailable Reason for Referral Med Therapy Management - Closed Specialty Diagnoses / Procedures Referred By Contact Refer red To Contact Diagnoses Fatigue, unspecified type Type 2 diabetes mellitus without complication, without long-term current use of insulin (H) Fibromyalgia Chronic pain of left ankle Vanda Borja MD [address] [place] [address] Referral ID Status Reason Start Date Expiration Date Visits Requ ested Visits Authorized [id number] Closed 09/25/2016 09/25/2017 1 1 Reason for Visit Reason Comments Diabetes Encounter Details Date Type Department Care Team Description 09/25/2016 Office Visit [facility] Vanda Borja Type 2 diabetes mellitus without complication, without long-term current use of insulin (H) (Primary Dx); Clinic Pino Toribio MD Moderate episode of recurrent major depr essive disorder (H); [address] [place] [address] Fibro myalgia; [facility] Chronic pain of left ankle; [address] [place] [address] Family history of [place] (myocardial infarct ion); [place] [address] Atypical chest pain; [phone] Fatigue, unspecified type; Seasonal allerg ic rhinitis [...] How often do you attend congregation or hoahaoism Patient refused 08/08/2019 services? Do [...] to set up a stress test in [place], the other to set up a visit [...] MANAGE REFERRAL G89.29 5. Family history of [place] (myocardial infarction) Z82.49 NM Exercise stress test [...] measures. See Patient Instructions Vanda Borja MD [facility] documented in this [...] D 33 20 - 75 02/19/2017 [facility] ug/L 2:[address] [facility] Comment: Season, race, dietary intake, and treatm ent affect the concentration of 68-yioulsz-Eqldviy D. Values may decreas e during winter [...] e Number [facility] [address] [place], [place] [id number] [place] [address] (ABNORMAL) Comprehensive metabolic panel (02/17/2017 9:13 AM CDT) Analysis Performed At Patho logist Time Signature Sodium 145 (H) 133 - 144 02/17/2017 [facility] mmol/L 2:14 PM CDT [facility] Potassium 3.9 3.4 - 5.3 02/17/2017 [facility] mmol/L 2:14 PM CDT [facility] Chloride 111 (H) 94 - 109 02/17/2017 [facility] mmol/L 2:14 PM CDT [facility] Carbon Dioxide 28 20 - 32 02/17/2017 [facility] mmol/L 2:14 PM [facility] Anion Gap 6 3 - 14 02/17/2017 [facility] mmol/L 2:14 PM [facility] Glucose 137 (H) 70 - 99 02/17/2017 [facility] mg/dL 2:14 PM [facility] Comment: Fasting specimen Urea Nitrogen 12 7 - 30 mg/dL 02/17/2017 2:14 PM CDT [facility] Creatinine 0.75 0.52 - 1.04 mg/dL 02/17/2017 2:14 PM CD T [facility] GFR Estimate 80 >60 mL/min/1.7m2 02/17/2017 2:14 PM C DT [facility] Comment: Non GFR Calc GFR Estimate If >90 >60 mL/min/1.7m2 02/17/2017 2:14 P M [facility] Black [facility] Comment: GFR Calc Calcium 9.1 8.5 - 10.1 02/17/2017 2:14 PM [facility] mg/dL [facility] Bilirubin Total 0.5 0.2 - 1.3 02/17/2017 2:14 PM [facility] mg/dL [facility] Albumin 3.5 3.4 - 5.0 g/dL 02/17/2017 2:14 PM [facility] EW [facility] Protein Total 7.3 6.8 - 8.8 g/dL 02/17/2017 2:14 PM [facility] Alkaline Phosphatase 169 (H) 40 - 150 U/L 02/17/2017 2:[address] [facility] ALT 32 0 - 50 U/L 02/17/2017 2:14 PM [facility] AST 17 0 - 45 U/L 02/17/2017 2:14 PM [facility] Specimen Anatomical Collection Method Collection Time Receive d Time (Source) Location / / Volume Laterality Blood specimen 02/17/2017 9:13 AM 017 9:18 (specimen) CDT AM CDT Vanda Borja MD LAB - BLOOD ORDERABLES Performing Organization Address City/State/ZIP Code Phon e Number [facility] [address] [place] [address] Hepatitis C Screen Reflex to HCV RNA Quant and Genotype (09/25/2016 2:30 PM CDT) Component Value Ref Test Analysis Performed At [facility] gist Range Method Time Signature Hepatitis C Nonreactive NR [facility] Antibody Assay performance character istics have not been established for [facility], [place] MEDICAL infants, and children [facility] Specimen Anatomical Collection Method Collection Time Receive d Time (Source) Location / / Volume Laterality Blood specimen 09/25/2016 2:30 PM 017 (specimen) CDT 11:29 AM CDT Vanda Borja MD LAB - BLOOD ORDERABLES Performing Organization Address City/[facility]/ZIP Code Phon e Number [facility] [address] [place] [address] [facility] CBC with platelets (09/25/2016 2:30 PM CDT) P athologist Signature WBC 6.4 4.0 - 11.0 [facility] 10e9/L [facility] RBC Count 3.97 3.8 - 5.2 [facility] 10e12/L [facility] Hemoglobin 12.6 11.7 - [facility] 15.7 g/dL [facility] Hematocrit 38.1 35.0 - [facility] 47.0 % [facility] MCV 96 78 - 100 [facility] fl [facility]IN[facility] MCH 31.7 26.5 - [facility] 33.0 pg [...] LAB - BLOOD ORDERABLES Performing Organization Address City/[facility]/ZIP Code Phon e Number [facility] [address] [place] [address] TSH with free T4 reflex (09/25/2016 2:30 PM CDT) athologist Signature TSH 1.80 0.40 - 4.00 [facility] mU/L [facility] Specimen Anatomical Collection Method Collection Time Receive d Time (Source) Location / / Volume Laterality Blood specimen 09/25/2016 2:30 PM 017 2:31 (specimen) CDT PM CDT Vanda Borja MD LAB - BLOOD ORDERABLES Performing Organization Address City/State/ZIP Code Phon e Number [facility] [address] [place] [address] Vitamin D Deficiency (09/25/2016 2:30 PM CDT) athologist Signature Vitamin D 25 20 - 75 [facility] Deficiency ug/L [place] [facility] Comment: Season, race, dietary intake, and treatm ent affect the concentration of 62-tduqnus-Esspwcs D. Values may decrea se during winter [...] e Number [facility] [address] [place] [address] [facility] Hemoglobin A1c (09/25/2016 2:30 PM CDT) athologist Signature Hemoglobin A1C 5.9 4.3 - 6.0 [facility] Specimen Anatomical Collection Method Collection Time Receive d Time (Source) Location / / Volume Laterality Blood specimen 09/25/2016 2:30 PM 017 2:31 (specimen) CDT PM CDT Vanda Borja MD LAB - BLOOD ORDERABLES Performing Organization Address City/State/ZIP Code Phon e Number [address] [address] (ABNORMAL) Comprehensive metabolic panel (09/25/2016 2:30 PM CDT) [facility] Method Time Signature Sodium 148 (H) 133 - 144 [facility] mmol/L [facility] Potassium 4.5 3.4 - 5.3 [facility] mmol/L [facility] Chloride 113 (H) 94 - 109 [facility] mmol/L [facility] Carbon Dioxide 26 20 - 32 [facility] mmol/L [facility] Anion Gap 9 3 - 14 [facility] mmol/L [facility] Glucose 100 (H) 70 - 99 [facility] mg/dL [facility] Urea Nitrogen 13 7 - 30 [facility] mg/dL [facility] Creatinine 0.72 0.52 - [facility] 1.04 mg/dL [facility] GFR Estimate 85 >60 [facility] mL/min/1.[address] [facility] Comment: Non GFR Calc GFR Estimate If Black >90 >60 mL/min/1.7m2 F [facility] GFR Calc [facility] Calcium 9.3 8.5 - 10.1 mg/dL [facility] CLIN ICS [facility] Bilirubin Total 0.2 0.2 - 1.3 mg/dL [facility] Albumin 3.7 3.4 - 5.0 g/dL [facility] S [facility] Protein Total 7.4 6.8 - 8.8 g/dL [facility] CL INICS [facility] Alkaline Phosphatase 165 (H) 40 - 150 U/L [facility] ALT 28 0 - 50 U/L [facility] AST 17 0 - 45 U/L [facility] Specimen Anatomical Collection Method Collection Time Receive d Time (Source) Location / / Volume Laterality Blood specimen 09/25/2016 2:30 PM 017 2:31 (specimen) CDT PM CDT Vanda Borja MD LAB - BLOOD ORDERABLES Performing Organization Address City/State/ZIP Code Phon e Number [facility] [address] [place] [address] Albumin Random Urine Quantitative (09/25/2016 2:30 PM CDT) P athologist Signature Creatinine 128 mg/dL [facility] Urine [facility] Albumin Urine 8 mg/L [facility] mg/L [facility] Albumin Urine 5.96 0 - 25 [facility] mg/g Cr mg/g Cr [facility] Specimen Anatomical Collection Method Collection Time Receive d Time (Source) Location / / Volume Laterality Urine specimen 09/25/2016 2:30 PM 017 2:31 (specimen) CDT PM CDT Vanda Borja MD LAB - URINE ORDERABLES Performing Organization Address City/State/ZIP Code Phon e Number [facility] [address] [place] [address] [phone] [facility] [address] [place] [address], [facility] [phone] documented in this encounter Visit Diagnoses Diagnosis Type 2 diabetes mellitus without complic ation, without long-term current use of insulin (H) - Primary Moderate episode of recurrent major depr essive disorder (H) Fibromyalgia Mylagia and myositis, unspecified Chronic pain of left ankle Family history of [place] (myocardial infarct ion) Family history of ischemic [...] documented as of this encounter Care Teams Loader Magazine Grinder Relationship Specialty Start Date End Date Vanda Borja MD PCP - General Internal Medicine 04/08/15 01/08/19 [address] [facility] [place] [address] Vanda Borja MD PCP - Assigned PCP 07/24/16 06/15/18 [address] [place] [address] documented as of this encounter
--- OUTSIDE RECORDS SUMMARY | 2022-01-17 22:34 | XMS_ITS | Encounter Summary ---
:1965 Author Organization [place] Address [address] [place] [address] Care Team Providers Name Role Phone Vanda Guerrero MD Primary Care Provider [phone] Vanda Guerrero MD Unavailable Reason for Visit [facility] Physical Therapy (Routine) - Closed Specialty Diagnoses / Procedures Referred By Contact Refer red To Contact Physical Therapy Diagnoses new pt needs paperwork post peroneal tendon repair surgery left foot. / Agatha Null DPM, Pod @ [facility] Agatha Null DPM, Candy Disla, PT Procedures EXTREMITY INITIAL Podiatry/Foot and [facility] [address] [place] [address] [place] [address] [place] [address] Referral ID Status Reason Start Date Expiration Date Visits V isits Requested Authorized LINUS/BC/LFOOT Closed 07/03/2016 06/10/2017 20 18 Encounter Details Date Type Department Care Team Description 07/24/2016 [facility], left; Rehabilitation PT Aftercare following surgery of the [facility] Services [facility] [address] [facility] [address] [place] [address] [place], [place] [phone] [address] Social History Tobacco Use Types Packs/Day [...] How often do you attend confucianist or hoahaoism Patient refused 08/08/2019 services? 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
--- OUTSIDE RECORDS SUMMARY | 2022-01-17 22:34 | XMS_ITS | Encounter Summary ---
:1965 Author Organization [facility] Address [address] [place] [address] Care Team Providers Name Role Phone Vanda Guerrero MD Primary Care Provider [phone] Vanda Guerrero MD Unavailable Reason for Visit [facility] Physical Therapy (Routine) - Closed Specialty Diagnoses / Procedures Referred By Contact Refer red To Contact Physical Therapy Diagnoses new pt needs paperwork post peroneal tendon repair surgery left foot. / Agatha Null DPM, Pod @ [facility] Agtaha Null DPM, Candy Disla, PT Procedures EXTREMITY INITIAL Podiatry/Foot and [facility] [address] [place] [address] [place] [address] [place] [address] Referral ID Status Reason Start Date Expiration Date Visits V isits Requested Authorized LINUS/BC/LFOOT Closed 07/03/2016 06/10/2017 20 18 Encounter Details Date Type Department Care Team Description 09/01/2016 [facility], Ankle p ain, left; Rehabilitation PT Aftercare following surgery of the [facility] Services [facility] [address] [facility] [address] [place] [address] [place], [place] [phone] [address] Social History Tobacco Use Types Packs/Day [...] How often do you attend mandaen or pentecostalism Patient refused 08/08/2019 services? Do [...] for the very basics like Not h uzrdo at all 08/08/2019 food, housing, medical care, [...] documented as of this encounter Care Teams Adult Education Manager Relationship Specialty Start Date End Date Vanda Guerrero MD PCP - General Internal Medicine 04/08/15 01/08/19 [address] [facility] [place] [address] Vanda Guerrero MD PCP - Assigned PCP 07/24/16 06/15/[address] [place] [address] [place] [address] documented as of this encounter
--- OUTSIDE RECORDS SUMMARY | 2022-01-17 22:34 | XMS_ITS | Encounter Summary ---
:1965 Author Organization [facility] Address [address] [place] [address] Care Team Providers Name Role Phone Vanda Guerrero MD Primary Care Provider [phone] Vanda Guerrero MD Unavailable Reason for Visit Reason Comments Diabetes Education Encounter Details Date Type Department Care Team Description 11/14/2016 Allied Health/Nurse [facility] Diabetes Education Visit [address] [place] [address] Social History Tobacco Use Types [...] How often do you attend christianity or episcopal Patient refused 08/08/2019 services? Do [...] water, Diet [place] (trying to reduce) Cultural/episcopal diet restrictions: No Biggest Challenge to Healthy [...] Understanding Diabetes Booklet, Carbohydrate Counting, My Plate White Lead Grinder, Diabetes on a Budget Healthy Eating information [...] resources (magazines, books, etc.), Follow-up visit with staff educator and Follow-up with primary care provider Wilda Fernandez RD, CDE Diabetes Unified Communications Engineer Time Spent: 60 minutes Encounter Type: Individual [...] as of this encounter Care Teams Manager Office Services Relationship Specialty Start Date End Date Vanda Guerrero MD PCP - General Internal Medicine 04/08/15 01/08/19 [address] [facility] [place] [address] Vanda Guerrero MD PCP - Assigned PCP 07/24/16 06/15/18 [address] [facility] [place] [address] documented as of this encounter
--- OUTSIDE RECORDS SUMMARY | 2022-01-17 22:34 | XMS_ITS | Encounter Summary ---
:1965 Author Organization [facility] Address [address] [place] [address] Care Team Providers Name Role Phone Vanda Guerrero MD Primary Care Provider [phone] Vanda Guerrero MD Unavailable Reason for Visit (Routine) - Closed Specialty Diagnoses / Procedures Referred By Contact Refer red To Contact Radiology / Radiology. Diagnoses EPIC ORDER SB PT PREP INFORMED Rh Nuclear Medicine Procedures NM MPI WITH LEXISCAN [address] [place] [address] Phone: Fax: Referral ID Status Reason Start Date Expiration Date Visits Requ ested Visits Authorized [id number] Closed 10/17/2016 10/17/2017 1 1 Encounter Details Date Type Department Care Team Description 10/17/2016 Hospital Encounter M [facility] Vanda Guerrero [facility] [address] [facility] [address] [place], [place] [id number] (Wo rk) Social History Tobacco Use Types [...] How often do you attend jainism or latter day Patient refused 08/08/2019 services? Do you belong to any clubs or organizations such as No 08/08/2019 jainism groups, [employer], fraternal or athletic groups, or school groups? [...] capsule 8 capsule 0 017 01/02/2019 D3) 66420 UNITS (50,000 Units) by capsuleIndications: mouth once [...] climacteric states times weekly fluticasone (FLONASE) [address] [place] 1-2 sprays 3 Bottle 3 05/0306/12/2017 MCG/ACT [...] Routine 10/17/2016 2:34 PM Family history of [place] R esults for this LEXISCAN CDT (myocardial [...] documented as of this encounter Care Teams It Risk Analyst Relationship Specialty Start Date End Date Vanda Guerrero MD PCP - General Internal Medicine 04/08/15 01/08/19 [address] [facility] [place] [address] Vanda Guerrero MD PCP - Assigned PCP 07/24/16 06/15/18 [address] [facility] [place] [address] documented as of this encounter
--- OUTSIDE RECORDS SUMMARY | 2022-01-17 22:34 | XMS_ITS | Encounter Summary ---
:1965 Author Organization [facility] Address [address] [place] [address] Care Team Providers Name Role Phone Vanda Guerrero MD Primary Care Provider [phone] Vanda Guerrero MD Unavailable [address] ENGINEER BENZENE WORKER Unavailable [phone] ENGINEER BENZENE WORKER Unavailable [phone] ENGINEER BENZENE WORKER Primary Care Provider [phone] Kalyan Galvan Unavailable Unavailable Lashae Trevino [facility] Unavailable [phone] Eduardo Sharma MD Unavailable Rios Monteiro MD Unavailable Marcelo Artis-C Unavailable [phone] Rodrigo Man-C Unavailable Reason for Visit Reason Onset Date Comments Refill Request 08/30/2016 Metformin 500mg tab Encounter Details Date Type Department Care Team Description 08/30/2016 Refill M [facility] Vanda Guerrero R efill Request Clinic [facility]ino SALDANA (Metformin 500mg tab) [address] [facility] [address] [place] [address] [place] [address] [phone] Social History Tobacco Use Types Packs/Day Years [...] How often do you attend anglican or bahai Patient refused 08/08/2019 services? Do [...] # refills: 1 Last Office [facility] or [facility] prescribing provider: 06/01/16 BP Readings from Last [...] documented as of this encounter Care Teams Industrial Machine System Technician Relationship Specialty Start Date End Date Vanda Guerrero, PCP - General Internal Medicine 04/08/15 01/08/19 [address] [facility] [place] [address] Vanda Guerrero, PCP - Assigned PCP 07/24/16 06/15/18 [address] [facility] [place] [address] [place] PCP - Assigned PCP 06/16/18 08/13/18 SEAN Haley BENZENE WORKER [address] [facility] [place] [address] [place] PCP - General Nurse Practitioner 01/09/19 12/12/21 SEAN Haley BENZENE WORKER [address] [facility] [place] [address] [place] Assigned PCP 06/16/18 SEAN Haley BENZENE WORKER [address] [facility] [place] [address] Kalyan Galvan Personal Advocate & 08/08/19 Liaison (PAL) Lashae Trevino Pharmacist Pharmacist 10/14/19 12/01/[facility] [address] [place], [place] [id number] Eduardo Sharma MD Assigned Sleep Provider 04/02/20 05/07/[address] [place] [address] Rios Monteiro MD Assigned Musculoskeletal 04/02/20 08/24/[address] Provider [address] [place] [address] Marcelo Artis Assigned Musculoskeletal 08/25/20 08/20/21 MIKAYLA Nuno Provider [address] [place], [place] [address] Rodrigo Man Assigned Surgical 08/25/2011/27 MIKAYLA Lacy Provider [address] [place] [address] documented as of this encounter
--- OUTSIDE RECORDS SUMMARY | 2022-01-17 22:34 | XMS_ITS | Encounter Summary ---
:1965 Author Organization [place] Address [address] [place] [address] Care Team Providers Name Role Phone Vanda Guerrero MD Primary Care Provider [phone] Vanda Guerrero MD Unavailable Reason for Visit Reason Onset Date Comments Refill Request 08/17/2016 DULOXETINE 30MG Encounter Details Date Type Department Care Team Description 08/17/2016 Refill M [facility] Vanda Guerrero R efill Request Clinic [facility] SALDANA (DULOXETINE 30MG) [address] [facility] [address] [place] [address] [place] [id number] [phone] Social History Tobacco Use Types Packs/Day Years [...] often do you attend roman catholic or christian Patient refused 08/08/2019 services? Do [...] 08/18/2016 10:01 AM CST Prescription approved per [facility] Refill Protocol. Kirsten aCsillas RN Triage Nurse BANQUET WAITRESS Telephone Encounter - Marisa Matthew - 08/17/2016 11:01 AM CST DULOXETINE 30MG Last Written Prescription Date: 11/09/2015 Last Fill Quantity: 180, # refills: 2 Last Office Visit with [facility], [facility] or [facility] prescribing provider: 06/01/2016 BP Readings from Last 3 Encounters: 08/15/16 114/74 07/18/16 118/78 07/13/16 112/68 Pulse: (for Fetzima) Creatinine Date Value Ref Range Status 06/08/2016 0.74 0.52 - 1.04 mg/dL Final ] Last PHQ-9 score on record= PHQ-9 SCORE 05/01/2016 Total Score - Total Score MyChart 11 (Moderate depression) Total Score - BANQUET WAITRESS documented in this encounter Plan of Treatment Not on filedocumented as of this encounter Visit Diagnoses Diagnosis Fibromyalgia Mylagia and myositis, unspecified documented in this encounter Additional Health Concerns Assessment Noted Time PHQ-9 Depression Total Score: 11 05/02/2016 7:09 AM CS T documented as of this encounter Care Teams Chro Relationship Specialty Start Date End Date Vanda Guerrero MD PCP - General Internal Medicine 04/08/15 01/08/[address] [place] [address] [place] [address] Vanda Guerrero MD PCP - Assigned PCP 07/24/16 06/15/[address] [place] [address] [place] [address] documented as of this encounter
--- OUTSIDE RECORDS SUMMARY | 2022-01-17 22:35 | XMS_ITS | Encounter Summary ---
:1965 Author Organization [facility] Address [address] [place] [address] Care Team Providers Name Role Phone Vanda Guerrero MD Primary Care Provider [phone] Reason for Visit Reason Onset Date Comments Vaginal Problem 04/18/2016 spotting Encounter Details Date Type Department Care Team Description 04/18/2016 Telephone [facility] Vanda Lal Vaginal Problem [facility] MD Catarino (spotting) [place] [phone] 6935 [facility] [phone] [facility] DAVID [...] How often do you attend presybeterian or mosque Patient refused 08/08/2019 services? Do [...] Vanda Guerrero MD - 04/19/2016 8:40 AM MACHINE COIL ASSEMBLER Patient has appt with me later this month - will discuss in more detail at that time. INE COIL ASSEMBLER Telephone Encounter - Kallie Mishra RN - [...] Guerrero, would like to wait versus seeing PLANT BREEDER SCIENTIST. Patient will call with any new or worsening symptoms. FYI sent to Dr. Guerrero per patient request. INE COIL ASSEMBLER documented in this encounter Plan of Treatment Not on filedocumented as of this encounter Visit Diagnoses Not on filedocumented in this encounter Additional Health Concerns Assessment Noted Time PHQ-9 Depression Total Score: 10 12/23/2015 7:15 AM CD T documented as of this encounter Care Teams Supervisor Phosphatic Fertilizer Relationship Specialty Start Date End Date Vanda Guerrero MD PCP - General Internal Medicine 04/08/15 01/08/19 [address] [facility] [place] [address] documented as of this encounter
--- OUTSIDE RECORDS SUMMARY | 2022-01-17 22:35 | XMS_ITS | Encounter Summary ---
:1965 Author Organization [facility] Address [address] [place] [address] Care Team Providers Name Role Phone Vanda Guerrero MD Primary Care Provider [phone] Reason for Visit Reason Onset Date Comments Schedule Surgery 05/17/2016 Encounter Details Date Type Department Care Team Description 05/17/2016 Telephone [facility] Agatha Null, MARÍA, Schedule Surgery [place] [facility]Foot and [address] [place] [address] Ankle Surgery [place], [place] [id number] [place] [address] DR [place] [phone] [facility] [phone] [place], [place] [address] (Wo rk) Social History [...] How often do you attend uatsdin or protestant Patient refused 08/08/2019 services? Do [...] 06/08/16 @ 10:[address] Null at [facility]. Details confirmed with patient. Thank you. ? DIAGNOSIS: left peroneal tendon tear PROCEDURES: ??Left peroneal tendon repair/transfer Site: ??Left Length of case: ??60 min [place]: ?? No ANESTHESIA: General Popliteal Block: ??Yes Tourniquet: t high ?? PATIENT POSITION: ??Lateral left up Antibiotics: ??Give before surgery Same day EQUIPMENT: ??Mini c-arm, podiatry set, tenotomy scissors, 2-prolene,and 3-0 fiberwire B documented in this encounter Plan of Treatment Not on filedocumented as of this encounter Visit Diagnoses Not on filedocumented in this encounter Additional Health Concerns Assessment Noted Time PHQ-9 Depression Total Score: 11 05/02/2016 7:09 AM CS T documented as of this encounter Care Teams Rubber Insulator Relationship Specialty Start Date End Date Vanda Guerrero MD PCP - General Internal Medicine 04/08/15 01/08/[address] [facility] [place] [address] documented as of this encounter
--- OUTSIDE RECORDS SUMMARY | 2022-01-17 22:35 | XMS_ITS | Encounter Summary ---
:1965 Author Organization [facility] Address [address] [place] [address] Care Team Providers Name Role Phone Vanda Guerrero MD Primary Care Provider [phone] Reason for Visit [facility] Physical Therapy (Routine) - Closed Specialty Diagnoses / Procedures Referred By Contact Refer red To Contact Physical Therapy Diagnoses new pt needs paperwork post peroneal tendon repair surgery left foot. / Agatha Null DPM, Pod @ [facility] Pod[facility] Agatha Null DPM, Candy Disla, PT Procedures [facility] Podiatry/Foot and [facility] [address] [place] [address] [facility] [address] [place] [address] [place] [address] Referral ID Status Reason Start Date Expiration Date Visits V isits Requested Authorized LINUS/BC/LFOOT Closed 07/03/2016 06/10/2017 20 18 Encounter Details Date Type Department Care Team Description 07/05/2016 Therapy [facility] Ankle p ain, left (Primary Dx); Rehabilitation PT Aftercare following surgery of the [facility] loskeletal system Services [facility] [address] [place] [address] [place], [place] [phone] [address] Social History Tobacco Use Types Packs/Day [...] Name Priority Date/Time Associated Diagnosis Comme nts [facility] NEUROMUSCULAR Routine 07/05/2016 12:44 PM Ankle pain , left RE-EDUCATION HVAC ENGINEER Aftercare following surgery of the musculoskeletal system [facility] THERAPEUTIC Routine 07/05/2016 12:44 PM Ankle pain, left EXERCISES HVAC ENGINEER Aftercare following surgery of the musculoskeletal system documented in this encounter Visit Diagnoses Diagnosis Ankle pain, left - Primary Pain in joint, ankle and foot Aftercare following surgery of the [facility] loskeletal system Aftercare following surgery of the [facility] loskeletal system, NEC documented in this encounter Additional Health Concerns Assessment Noted Time PHQ-9 Depression Total Score: 11 05/02/2016 7:09 AM CS T documented as of this encounter Care Teams Stores Assistant Relationship Specialty Start Date End Date Vanda Guerrero MD PCP - General Internal Medicine 04/08/15 01/08/[address] [facility] [place] [address] documented as of this encounter
--- OUTSIDE RECORDS SUMMARY | 2022-01-17 22:35 | XMS_ITS | Encounter Summary ---
:1965 Author Organization [place] Address [address] [place] [address] Care Team Providers Name Role Phone Vanda Guerrero MD Primary Care Provider [phone] Encounter Details Date Type Department Care Team Description 05/22/2016 Orders Only [facility] Agatha Null, Peronea l tendon tear, left, subsequent encounter (Primary Dx); Clinic Pako DPM, Podiatry/Foot Post-operative state [address] [facility] and Ankle Surgery DAV[place] Min [phone] [address] [phone] [facility] [address] [place], [place] [phone] (Wo rk) Social History Tobacco Use Types [...] How often do you attend jain or christian Patient refused 08/08/2019 services? Do [...] documented as of this encounter Care Teams Vehicle Dynamics Engineer Relationship Specialty Start Date End Date Vanda Guerrero MD PCP - General Internal Medicine 04/08/15 01/08/[address] [place] [address] documented as of this encounter
--- OUTSIDE RECORDS SUMMARY | 2022-01-17 22:35 | XMS_ITS | Encounter Summary ---
:1965 Author Organization [place] Address [address] [place] [address] Care Team Providers Name Role Phone Vanda Borja MD Primary Care Provider [phone] Reason for Visit Reason Comments Physical Encounter Details Date Type Department Care Team Description 05/03/2016 Office Visit [facility] Vanda Borja for routine adult health examination with abnormal findings (Primary Dx); Pino Toribio MD Postmenopausal bleeding; [address] [facility] Moderate episode of recurren t major depressive disorder (H); DAVID Pringle DR Type 2 diabetes mellitus without complic ation, without long-term current use of insulin (H); [phone] DAV[place] [address] Fibromyalgia; [phone] Hyperlipidemia LDL goal <100; (Work) Gastroesophageal reflux [...] How often do you attend temple or adventism Patient refused 08/08/2019 services? Do [...] Comments Blood Pressure 122/78 05/03/2016 11:19 AM MACHINE TURNER Pulse 72 05/03/2016 11:19 AM MACHINE TURNER Temperature 36.4 ??C (97.6 ??F) 05/03/2016 11:19 AM MACHINE TURNER Respiratory Rate - - Oxygen Saturation - - Inhaled Oxygen Concentration - - Weight 85.3 kg (188 lb) 05/03/2016 11:19 AM MACHINE TURNER Height 157.5 cm (5' 2) 05/03/2016 11:19 AM MACHINE TURNER Body Mass Index 34.39 05/03/2016 11:19 AM MACHINE TURNER documented in this encounter Patient Instructions Patient InstructionsJodeetoanRejiLori Thomas - 05/03/2016 10:43 AM MACHINE TURNER [facility] Radiology: [phone] - call to set up pelvic ultrasound, then make appointment with LAP WINDING MACHINE OPERATOR here after that - Dr Nelson or [...] doctor every 1 to 2 years. ??? INE TURNER documented in this encounter Progress Notes Vanda [...] recommended All Histories reviewed and updated in [facility]. ROS: 10 point ROS neg other than the symptoms noted above in the HPI. Problem list, Medication list, Allergies, and Medical/Social/Surgical histories reviewed in [facility] andupdated as appropriate. OBJECTIVE: BP 122/78 [...] have US and then follow up with Gastroenterology Nurse 3. Moderate episode of recurrent major depressive [...] in addition to RHM. Vanda Borja MD [facility] INE TURNER documented in this encounter Nursing Notes Lori [...] kg). BP completed using cuff size: regular INE TURNER documented in this encounter Plan of Treatment Not on filedocumented as of this encounter Procedures Procedure Name Priority Date/Time Associated Diagnosis Comme nts HPV HIGH RISK TYPES Routine 05/03/2016 12:17 PM Cervical cance r Results for this DNA CERVICAL MACHINE TURNER screening procedure are i n the results section. PAP IMAGED THIN Routine 05/03/2016 12:00 AM Cervical cancer Re sults for this LAYER SCREEN MACHINE TURNER screening procedure are i n the results section. documented in this encounter Results US Pelvic Complete with Transvaginal (05/05/2016 2:41 PM MACHINE TURNER) Anatomical Region Laterality Modality Abdomen/Pelvis Ultrasound Specimen (Source) Anatomical Location Collection Method / Collectio n Time Received Time / Laterality Volume Impressions 05/05/2016 3:32 PM MACHINE TURNER IMPRESSION: 3.2 cm intramural fibroid. No endometrial thickening. Minimal free pelvic fluid is noted. Ovar ies are unremarkable and appear atrophic. BRIDGETTE LOZA MD Narrative 05/05/2016 3:32 PM MACHINE TURNER US PELVIC COMPLETE WITH TRANSVAGINAL 05/05/2016 2:41 [...] Risk Types DNA Cervical (05/03/2016 12:17 PM MACHINE TURNER) Component Value Ref Test Analysis Performed At [facility] Range Method Time Signature HPV 16 DNA Negative NEG [facility] HPV 18 DNA Negative NEG [facility] Other HR HPV Negative NEG [facility] Final This patient's sample is negative for HPV DNA. [place] Diagnosis (Note) OF [place] METHODOLOGY: ??The Alaina kandy 4800 system uses [...] and its performance characteristics determined by the [facility]. It has not been cleared or approved by the FDA. The laboratory is regulated under CLIA as qualified to perform high-complexity testing. This test is used for clinical purp oses. It should not be regarded as investigational or for research. Specimen Cervical Cells [place] Description C16 [address] OF [facility] Specimen Anatomical Collection Method Collection Time Receive d Time (Source) Location / / Volume Laterality Cervical Cells 05/03/2016 12:17 6 PM MACHINE TURNER 12:20 PM MACHINE TURNER Vanda Borja MD LAB - BLOOD ORDERABLES Performing Organization Address City/State/ZIP Code Phon e Number [facility] [address] Pap imaged thin layer screen with HPV - recommended age 30 - 65 years (select HPV order below) (05/03/2016 12:00 AM MACHINE TURNER) Component Value Ref Test Analysis Performed At [facility] Range Method Time Signature PAP NIL COPATH Copath Report COPATH Patient Name: MEGAN CHOI MR#: [id number] Specimen #: [id number] Collected: 05/03/2016 Received: 05/05/2016 Reported: 05/09/2016 08:26 [...] TARIQ Wick (ASCP) Processed and screened at [facility] CLINICAL HISTORY: LMP: 10/30/11 Post Menopausal, Previous normal pap Date of Last Pap: 10/06/14, Papanicolaou Test Limitations: ??Cervical cytology is a scre ening test with limited sensitivity; regular screening is critical for cancer prevention; Pap tests are primarily effective for the diagnosis/prevention of squamous cell carcinoma, not adenoca rcinomas or other cancers. TESTING LAB LOCATION: [address] ??[address] COLLECTION SITE: Client: ??[facility] Location: EAFP (R) Specimen (Source) Anatomical Collection Method Collection Time Re ceived Time Location / / Volume Laterality Cytologic 05/03/2016 05/05/2016 10:2 2 material AM MACHINE TURNER (specimen) Vanda Borja MD LAB - OPTIME [...] documented as of this encounter Care Teams Map Maker Relationship Specialty Start Date End Date Vanda Borja MD PCP - General Internal Medicine 04/08/15 01/08/[address] [facility] [address] [place], [place] [address] documented as of this encounter
--- OUTSIDE RECORDS SUMMARY | 2022-01-17 22:35 | XMS_ITS | Encounter Summary ---
:1965 Author Organization [facility] [place] Address [address] [place] [address] Care Team Providers Name Role Phone Vanda Guerrero MD Primary Care Provider [phone] Reason for Visit Auth/Cert Specialty Diagnoses / Procedures Referred By Contact Refer red To Contact Surgery Diagnoses Peroneal Tendon tear Rh Periop Services Procedures REPAIR TENDON PERONEAL [address] [place], [place] [address] Fax: Referral ID Status Reason Start Date Expiration Date Visits Requ ested Visits Authorized [id number] 1 1 Encounter Details Date Type Department Care Team Description 06/08/[address] [facility] Agatha Null DPM, Le ft peroneal tendon [place] [facility] Podiatry/Foot and repair and transfer [address] [facility] [place] [address] [place] [phone] [facility] [address] [place], [place] [address] (Wo rk) Surgery Details [...] How often do you attend anglican or catholic Patient refused 08/08/2019 services? Do [...] Comments Blood Pressure 156/103 06/08/2016 11:20 AM HUMAN RESOURCE ADVISER Pulse - - Temperature 36.6 ??C (97.9 ??F) 06/08/2016 11:15 AM HUMAN RESOURCE ADVISER Respiratory Rate 20 06/08/2016 11:20 AM HUMAN RESOURCE ADVISER Oxygen Saturation 100% 06/08/2016 11:20 AM HUMAN RESOURCE ADVISER Inhaled Oxygen Concentration - - Weight 87.1 kg (192 lb 1.6 oz) 06/08/2016 8:52 AM HUMAN RESOURCE ADVISER Height 157.5 cm (5' 2) 06/08/2016 8:52 AM HUMAN RESOURCE ADVISER Body Mass Index 35.14 06/08/2016 8:52 AM HUMAN RESOURCE ADVISER documented in this encounter Discharge Instructions Discharge [...] take any ibuprofen products until 3:15 pm. N RESOURCE ADVISER documented in this encounter Medications at Time [...] or female climacteric states fluticasone (FLONASE) 50 Shoup 1-2 sprays 3 Bottle 3 05/0306/12/2017 MCG/ACT [...] days available in the hospital surgical encounter. N RESOURCE ADVISER Source Note - Noreen Corbett MD - 06/01/2016 10:17 AM HUMAN RESOURCE ADVISER [address] [facility] [address] Dept: [phone] PRE-OP EVALUATION: Today's date: 06/01/2016 Megan Choi (: 1965) presents for pre-operative evaluation assessment as requested by Dr. Null. She requires evaluation and anesthesia risk assessment prior to undergoing surgery/procedure for treatment of left ankle . Proposed procedure: repair of tendon in left ankle Date of Surgery/ Procedure: 06/08/16 Time of Surgery/ Procedure: 10:10am Hospital/Surgical Facility: [facility] Primary Physician: Vanda Guerrero Type of Anesthesia [...] ??? Obesity 04/13/2008 ??? Family history of ID (myocardial infarction) 04/13/2008 At early age, father ID at age 40 Past Medical History Diagnosis [...] ??? fluticasone (FLONASE) 50 MCG/ACT nasal spray Shoup 1-2 sprays into both nostrils daily 3 [...] cardiovascular risks for perioperative complications such as (ID, PE, VFib and 3?? AV Block): No [...] evaluation report is provided to requesting physician. [facility] Preop Guidelines N RESOURCE ADVISER documented in this encounter Nursing Notes Hortencia Sawyer, RN - 06/08/2016 12:26 PM CST Pharmacy [facility] called. Prescription question. Clarified with MD. Will receive the Enoxaparin 100mg/1mlwill give same dose just changing the dispensing container. V. O. Dr Karthik Null N RESOURCE ADVISER documented in this encounter Miscellaneous Notes Op [...] EM#[id number] Name: MEGAN CHOI MRN: [id number] Account: [id number] : 1965 Procedure Date: 06/08/2016 Document: [id number] N RESOURCE ADVISER Brief Op Note - Agatha Null DPM, Podiatry/Foot and Ankle Surgery - 06/08/2016 11:19 AM CST [facility] Brief Operative Note Pre-operative diagnosis: Peroneal Tendon [...] AM Post-operative st ate Results for this HUMAN RESOURCE ADVISER procedure are i n the results section. SURGICAL PATHOLOGY Routine 06/08/2016 10:40 AM Re sults for this EXAM HUMAN RESOURCE ADVISER procedure are i n the results section. REPAIR, TENDON, 06/08/2016 9:59 AM Peroneal Tendon tea r PERONEAL HUMAN RESOURCE ADVISER Special Needs 5'2 / 191# stated POTASSIUM STAT 06/08/2016 9:20 AM HUMAN RESOURCE ADVISER Resul ts for this procedure are i n the results section . CREATININE STAT 06/08/2016 9:20 AM HUMAN RESOURCE ADVISER Resul ts for this procedure are i n the results section . GLUCOSE BY METER Routine 06/08/2016 8:58 AM HUMAN RESOURCE ADVISER R esults for this procedure are i n the results section . PATHOLOGY RESULT - HIM 06/08/2016 12:00 AM HUMAN RESOURCE ADVISER SCAN documented in this encounter Results (ABNORMAL) Glucose by meter (06/08/2016 11:52 AM HUMAN RESOURCE ADVISER) P athologist Signature Glucose 159 (H) 70 - 99 POINT OF CARE mg/dL TEST, GLUCOSE Specimen Anatomical Collection Method Collection Time Receive d Time (Source) Location / / Volume Laterality 06/08/2016 11:52 06/08/2016 AM HUMAN RESOURCE ADVISER 11:55 AM HUMAN RESOURCE ADVISER Agatha Null DPM, Podiatry/Foot and Ankle Surgery LAB - [facility] POCT Performing Organization Address City/State/ZIP Code Phon e Number F[facility] POINT OF CARE TEST, GLUCOSE POINT OF CARE TEST, GLUCOSE Surgical pathology exam (06/08/2016 10:40 AM HUMAN RESOURCE ADVISER) Component Value Ref Test Analysis Performed At [facility] Range Method Time Signature Copath Report Patient Name: MEGAN CHOI MR#: [id number] Specimen #: [id number] Collected: 06/08/2016 Received: 06/08/2016 Reported: 06/09/2016 11:56 [...] is no in flammation. CPT Codes: A: 62486-IA6, 25089-AIT TESTING LAB LOCATION: [address] ??[address] COLLECTION SITE: Client: [facility] Location: RHOR (R) Specimen (Source) Anatomical Collection Method Collection Time Re ceived Time Location / / Volume Laterality Tissue specimen STRUCTURE OF LEFT 06/08/2016 10:40 (specimen) FOOT / Unknown AM HUMAN RESOURCE ADVISER Comment: Left foot tendon for Gross exam ination Agatha J Chaka DPM, Podiatry/Foot and Ankle Surgery LAB - [facility] Performing Organization Address City/State/ZIP Code Phon e Number [place] Creatinine (06/08/2016 9:20 AM HUMAN RESOURCE ADVISER) athologist Signature Creatinine 0.74 0.52 - 1.04 [place] mg/dL [facility] GFR Estimate 82 >60 [place] mL/min/1.7m [address] Comment: Non GFR Calc GFR Estimate If Black >90 >60 mL/min/1.7m2 F [facility] GFR Calc HOSP ITAL Specimen Anatomical Collection Method Collection Time Receive d Time (Source) Location / / Volume Laterality Blood specimen 06/08/2016 9:20 AM 016 9:24 (specimen) HUMAN RESOURCE ADVISER AM HUMAN RESOURCE ADVISER Dusty Sanchez MD LAB - BLOOD ORDERABLES Performing Organization Address City/[facility]/ZIP Code Phon e Number M [facility] [address] [place], [place] [address] [facility] [address] [place] [address], [facility] [phone] Potassium (06/08/2016 9:20 AM HUMAN RESOURCE ADVISER) athologist [facility] Potassium 3.8 3.4 - 5.3 [facility] mmol/L [facility] Specimen Anatomical Collection Method Collection Time Receive d Time (Source) Location / / Volume Laterality Blood specimen 06/08/2016 9:20 AM 016 9:24 (specimen) HUMAN RESOURCE ADVISER AM HUMAN RESOURCE ADVISER Dusty Sanchez MD LAB - BLOOD ORDERABLES Performing Organization Address City/[facility]/ZIP [facility] Phon e Number M [facility] [address] [place], [place] [address] [facility] [address] [place] [address], [facility] [phone] (ABNORMAL) Glucose by meter (06/08/2016 8:58 AM HUMAN RESOURCE ADVISER) athologist Signature Glucose 136 (H) 70 - 99 POINT OF CARE mg/dL TEST, GLUCOSE Specimen Anatomical Collection Method Collection Time Receive d Time (Source) Location / / Volume Laterality 06/08/2016 8:58 AM 6 9:00 HUMAN RESOURCE ADVISER AM HUMAN RESOURCE ADVISER Agatha Null DPM, Podiatry/Foot and Ankle Surgery LAB - [facility] POCT Performing Organization Address City/State/ZIP Code Phon e Number [facility] POINT OF CARE TEST, GLUCOSE POINT OF CARE TEST, GLUCOSE PATHOLOGY RESULT - HIM SCAN (06/08/2016 12:00 AM HUMAN RESOURCE ADVISER) Specimen (Source) Anatomical Location Collection Method / [...] 11:01 10 mLs Operative EPINEPHrine 1:200,000 AM HUMAN RESOURCE ADVISER Sit e/Surgical Site injection PRN, Starting on Elda 06/08/16 at 1101, Intra-procedure oxyCODONE (ROXICODONE) IR tablet 5-10 mg Given 06/08/2016 12:23 PM HUMAN RESOURCE ADVISER 5 mg 5-10 mg, Oral, ONCE PRN, moderate to severe pain, Starting on Elda 06/08/16 at 1107, For 1 dose, One time prior to discharge., Post-procedure documented in this encounter Active and Recently Administered Medications Times are shown in HUMAN RESOURCE ADVISER. Scheduled Medication Order 06/06/2016 06/07/2016 06/08/2016 ceFAZolin [...] documented as of this encounter Care Teams Solar Electric Practitioner Relationship Specialty Start Date End Date Vanda Guerrero MD PCP - General Internal Medicine 04/08/15 01/08/19 [address] [facility] [place] [address] documented as of this encounter
--- OUTSIDE RECORDS SUMMARY | 2022-01-17 22:35 | XMS_ITS | Encounter Summary ---
:1965 Author Organization [facility] Address [address] [place] [address] Care Team Providers Name Role Phone Vanda Guerrero MD Primary Care Provider [phone] Reason for Visit Reason Comments Surgical Followup Left foot peroneal tendon re pair/transfer DOS 06/08/16 Encounter Details Date Type Department Care Team Description 06/13/2016 Office Visit [facility] Agatha Null, Post-op erative state (Primary Dx); Clinic Otho DPM, Podiatry/Foot Burning with urination [address] [facility] [place] [address] [place] [address] [place] [address] [place] [address] (Wo rk) Social History Tobacco [...] How often do you attend mu-ism or mandaen Patient refused 08/08/2019 services? Do [...] Comments Blood Pressure 134/82 06/13/2016 9:59 AM SENIOR PRODUCT DEVELOPMENT MANAGER Pulse - - Temperature - - Respiratory Rate - - Oxygen Saturation - - Inhaled Oxygen Concentration - - Weight 86.6 kg (191 lb) 06/13/2016 9:59 AM SENIOR PRODUCT DEVELOPMENT MANAGER Height 157.5 cm (5' 2) 06/13/2016 9:59 AM SENIOR PRODUCT DEVELOPMENT MANAGER Body Mass Index 34.93 06/13/2016 9:59 AM SENIOR PRODUCT DEVELOPMENT MANAGER documented in this encounter Patient Instructions Patient InstructionsLarry Michael - 06/13/2016 10:[address] [facility] Schedule Follow up in 1 week Sunday AM Sunday [facility] [address] [address] [facility] [address] [address] [place] [address] [facility] [address] [place] [address] Sunday PM & Sunday AM Sunday PM Surgery Scheduling Line: [phone] [facility] [place] [address] [place] [address] [facility] [address] [place] [address] Appointment [phone] General After Hours: Patient [phone] OR PRODUCT DEVELOPMENT MANAGER documented in this encounter Progress Notes Agatha Null, MARÍA, Podiatry/Foot and Ankle Surgery - 06/13/2016 10:03 AM SENIOR PRODUCT DEVELOPMENT MANAGER Podiatry / Foot and Ankle Surgery Progress [...] completed using cuff size: kait Michael MA OR PRODUCT DEVELOPMENT MANAGER documented in this encounter Plan of Treatment Not on filedocumented as of this encounter Procedures Procedure Name Priority Date/Time Associated Diagnosis Comme nts URINE CULTURE Routine 06/13/2016 10:21 AM Burning with Results for this SENIOR PRODUCT DEVELOPMENT MANAGER urination procedure are i n the results section . documented in this encounter Results (ABNORMAL) Urine Culture Aerobic Bacterial (06/13/2016 10:21 AM SENIOR PRODUCT DEVELOPMENT MANAGER) Component Value Ref Test Analysis Performed At [facility] Range Method Time Signature Specimen Midstream Urine [facility] Culture Micro 10,000 to INFECTIOUS 50,000 DISEASE colonies/mL DIAGNOSTIC Escherichia LABORATORY coli (A) Micro Report FINAL INFECTIOUS Status 06/14/2016 DISEASE DIAGNOSTIC LABORATORY Organism: 10,000 to INFECTIOUS 50,000 DISEASE colonies/mL DIAGNOSTIC Escherichia LABORATORY coli Specimen Anatomical Collection Method Collection Time Receive d Time (Source) Location / / Volume Laterality Urine specimen 06/13/2016 10:21 7 (specimen) AM SENIOR PRODUCT DEVELOPMENT MANAGER 10:22 AM SENIOR PRODUCT DEVELOPMENT MANAGER Organism Antibiotic Method Susceptibility 10,000 to 50,000 [...] <=1 Susceptible ug/mL colonies/ml escherichia coli (keyshawn) Agatha SHEPHERDM, Podiatry/Foot and Ankle Surgery LAB - MICRO GENERAL ORDERABLES Performing Organization Address City/State/ZIP Code Phon e Number INFECTIOUS DISEASES [address] [place] [address] DIAGNOSTIC LABORATORY, [address] [address] [place] INFECTIOUS DISEASE [address] [place], [place] [address] DIAGNO[facility]IC [facility] documented in this encounter Visit Diagnoses Diagnosis Post-operative state - Primary Other postprocedural status Burning with urination Dysuria documented in this encounter Additional Health Concerns Assessment Noted Time PHQ-9 Depression Total Score: 11 05/02/2016 7:09 AM CS T documented as of this encounter Care Teams Tmd Teacher Relationship Specialty Start Date End Date Vanda Guerrero MD PCP - General Internal Medicine 04/08/15 01/08/19 [address] [facility] [place] [address] documented as of this encounter
--- OUTSIDE RECORDS SUMMARY | 2022-01-17 22:35 | XMS_ITS | Encounter Summary ---
:1965 Author Organization [facility] Address [address] [place] [address]. [place] [address] Care Team Providers Name Role Phone Vanda Guerrero MD Primary Care Provider [phone] Reason for Visit Auth/Cert Specialty Diagnoses / Procedures Referred By Contact Refer red To Contact Surgery Diagnoses Peroneal Tendon tear Rh Periop Services Procedures REPAIR TENDON PERONEAL [address] [place], [place] [address] Fax: Referral ID Status Reason Start Date Expiration Date Visits Requ ested Visits Authorized [id number] 1 1 Encounter Details Date Type Department Care Team Description 06/08/2016 Anesthesia Event [facility] Olivier Sanchez PeriOp Services MD Sher[place] [address] [place] [address] ANESTH [place] [address] [place], [place] [address] (Wo rk) Anesthesia Record [...] How often do you attend synagogue or baptism Patient refused 08/08/2019 services? Do [...] Sanchez MD June 08, 2016 11:23 AM EN MILL UTILITY WORKER Anesthesia Procedure Notes - Garry Sanchez MD [...] trained nor qualified to perform this procedure. EN MILL UTILITY WORKER Anesthesia Preprocedure Evaluation - Garry Sanchez MD [...] blood products discussed: No . . . EN MILL UTILITY WORKER documented in this encounter Miscellaneous Notes Anesthesia [...] prepare to transfer to PACU, Report to FISHER SPEAR. VSS transfer care Vitals: (Last set prior to Anesthesia Care Transfer) Electronically Signed By: Bryson Marie APRN BACK TENDER [employer]OTH [employer]INTING June 08, 2016 11:18 AM EN MILL UTILITY WORKER documented in this encounter Plan of Treatment Not on filedocumented as of this encounter Procedures Procedure Name Priority Date/Time Associated Diagnosis Comme nts ANE Routine 06/08/2016 10:12 AM Results for this PERIPHERAL/PARAVETE WOOLEN MILL UTILITY WORKER procedur e are in BRAL BLOCK the results section. documented in this encounter Results Peripheral/Paravetebral Block (06/08/2016 10:12 AM WOOLEN MILL UTILITY WORKER) Narrative Garry Sanchez MD - 016 10:12 AM WOOLEN MILL UTILITY WORKER Garry Sanchez MD ? 06/08/2016 10:12 AM [...] scrub. Nerve Stim: Initial Level 1 mA. ??[place] t motor response 0.5 mA.. ?? Needle: [...] to perform this procedure. Garry Sanchez MD [place] ANESTHESIA Peripheral/Paravetebral Block (06/08/2016 10:12 AM WOOLEN MILL UTILITY WORKER) Narrative Garry Sanchez MD - 016 10:12 AM WOOLEN MILL UTILITY WORKER Garry Sanchez MD ? 06/08/2016 10:12 AM [...] scrub. Nerve Stim: Initial Level 1 mA. ??[place] t motor response 0.5 mA.. ?? Needle: [...] to perform this procedure. Garry Sanchez MD [place] ANESTHESIA documented in this encounter Visit Diagnoses Not on filedocumented in this encounter Administered Medications Inactive Administered Medications - up to 3 most recent administrations Medication Order MAR Action Action Date Dose Rate Site bupivacaine 0.5 % - EPINEPHrine Given 06/08/2016 9:53 AM WOOLEN MILL UTILITY WORKER 40 mLs 1:200,000 injection PRN, Starting on Elda 06/08/16 at 0953, Anesthesia Intra-op ceFAZolin sodium-dextrose (ANCEF) infusi on 2 g Given 06/08/2016 10:08 AM WOOLEN MILL UTILITY WORKER 2 g Routine, 2 g, Intravenous, PRE-OP/PRE-PROCEDURE, Starting on [place]a 06/08/16 at 0859, For 1 dose, Give first dose within 1 hour PRIOR to incision. If patient weight is greater than or equal to 120 kg increase dose to 3 g., Indications: Perioperative Pharmacoprophylaxis, Pre-procedure dexamethasone (DECADRON) injection Given 06/08/2016 10:13 AM WOOLEN MILL UTILITY WORKER 8 mg PRN, Administer over 1-4 Minutes, Starting on [place] 06/08/16 at 1013, Anesthesia Intra-op fentaNYL Citrate (PF) (SUBLIMAZE) inject ion Given 06/08/2016 10:13 AM WOOLEN MILL UTILITY WORKER 75 mcg PRN, moderate to severe pain, Starting on [place]a 06/08/16 at 0953, Anesthesia Intra-op Given 06/08/2016 9:53 AM WOOLEN MILL UTILITY WORKER 50 mcg glycopyrrolate (ROBINUL) injection Given 06/08/2016 10:13 AM WOOLEN MILL UTILITY WORKER 0.2 mg PRN, Starting on [place]a 06/08/16 at 1013, Anesthesia Intra-op ketorolac (TORADOL) injection Given 06/08/2016 10:13 AM WOOLEN MILL UTILITY WORKER 30 mg PRN, moderate pain, Starting on [place] 06/08/16 at 1013, Anesthesia Intra-op lactated ringers infusion New Bag 06/08/2016 11:00 AM WOOLEN MILL UTILITY WORKER at 25 mL/hr, Intravenous, CONTINUOUS, IF patient NOT on dialysis., Pre-procedure, Starting on Elda 06/08/16 at 0915, Until [place]a 06/08/16 at 1115 New Bag 06/08/2016 10:08 AM WOOLEN MILL UTILITY WORKER lidocaine 1 % 1 mL Given 06/08/2016 10:13 AM WOOLEN MILL UTILITY WORKER 30 mg 1 mL, Other, EVERY 1 HOUR PRN, mild pain with VAD insertion or accessing implanted port, Starting on [place]a 06/08/16 at 0901, Do NOT give if patient has a history of allergy to any local anesthetic or any jabier product. MAX dose 1 mL subcutaneous OR intradermal in divided doses., Pre-procedure methylPREDNISolone acetate (DEPO-MEDROL) Given 06/08/2016 9:53 A M WOOLEN MILL UTILITY WORKER 80 mg injection PRN, Starting on [place]a 06/08/16 at 0953, Anesthesia Intra-op midazolam (VERSED) injection Given 06/08/2016 10:08 AM WOOLEN MILL UTILITY WORKER 2 mg PRN, anxiety, Starting on [place]a 06/08/16 at 0953, Anesthesia Intra-op Given 06/08/2016 9:53 AM WOOLEN MILL UTILITY WORKER 2 mg ondansetron (ZOFRAN) injection Given 06/08/2016 10:13 AM WOOLEN MILL UTILITY WORKER 4 mg PRN, nausea, vomiting, Administer over 2-5 Minutes, Starting on [place]a 06/08/16 at 1013, Anesthesia Intra-op propofol (DIPRIVAN) injection 10 mg/mL v ial Given 06/08/2016 10:13 AM WOOLEN MILL UTILITY WORKER 200 mg PRN, Starting on [place]a 06/08/16 at 1013, Anesthesia Intra-op rocuronium (ZEMURON) injection Given 06/08/2016 10:13 AM WOOLEN MILL UTILITY WORKER 20 mg PRN, Starting on [place] 06/08/16 at 1013, Anesthesia Intra-op documented in this encounter Additional Health Concerns Assessment Noted Time PHQ-9 Depression Total Score: 11 05/02/2016 7:09 AM CS T documented as of this encounter Care Teams Healthcare Analyst Relationship Specialty Start Date End Date Vanda Guerrero MD PCP - General Internal Medicine 04/08/15 01/08/[address] [place] [address] documented as of this encounter
--- OUTSIDE RECORDS SUMMARY | 2022-01-17 22:35 | XMS_ITS | Encounter Summary ---
:1965 Author Organization [facility] Address [address] [place] [address] Care Team Providers Name Role Phone Vanda Guerrero MD Primary Care Provider [phone] Reason for Visit [facility] Physical Therapy (Routine) - Closed Specialty Diagnoses / Procedures Referred By Contact Refer red To Contact Physical Therapy Diagnoses new pt needs paperwork post peroneal tendon repair surgery left foot. / Agatha Null DPM, Pod @ [facility] Pod[facility] Agatha Null DPM, Candy Disla, PT Procedures EXTREMITY INITIAL Podiatry/Foot and [facility] [address] [place] [address] [facility] [address] [place] [address] [place] [address] Referral ID Status Reason Start Date Expiration Date Visits V isits Requested Authorized LINUS/BC/LFOOT Closed 07/03/2016 06/10/2017 20 18 Encounter Details Date Type Department Care Team Description 07/03/2016 [facility] surgery of the musculoskeletal system (Primary Dx); Rehabilitation PT Ankle pain, left Services [facility] [address] [facility] [address] [place] [address] [place], [place] [phone] [address] Social History Tobacco Use Types Packs/Day [...] How often do you attend religion or jainism Patient refused 08/08/2019 services? Do [...] Objective: System Physical Exam General ROS Assessment/Plan: L ESTIMATOR Candy Disla, PT - 07/03/2016 10:04 AM CST [facility] Initial Evaluation Subjective: Megan [...] Sheet for this information) Short term and [facility] goals: (See Goal Flow Sheet for this [...] and time spent performing 1:1 timed codes. L ESTIMATOR documented in this encounter Plan of Treatment Not on filedocumented as of this encounter Procedures Procedure Name Priority Date/Time Associated Diagnosis Comme [facility] THERAPEUTIC Routine 07/03/2016 2:19 PM Aftercare following EXERCISES CIVIL ESTIMATOR surgery of the musculoskeletal system Ankle pain, left documented in this encounter Visit Diagnoses Diagnosis Aftercare following surgery of the muscu loskeletal system - Primary Aftercare following [facility] the [facility], [facility] Ankle pain, left Pain in joint, ankle and foot documented in this encounter Additional Health Concerns Assessment Noted Time PHQ-9 Depression Total Score: 11 05/02/2016 7:09 AM CS T documented as of this encounter Care Teams Feather Boner Relationship Specialty Start Date End Date Vanda Guerrero MD PCP - General Internal Medicine 04/08/15 01/08/19 [address] [facility] [place] [address] documented as of this encounter
--- OUTSIDE RECORDS SUMMARY | 2022-01-17 22:35 | XMS_ITS | Encounter Summary ---
:1965 Author Organization [facility] Address [address] [place] [address] Care Team Providers Name Role Phone Vanda Guerrero MD Primary Care Provider [phone] Reason for Visit Reason Comments Consult follow-up regarding US done 05/05/16 - post menopausal bleeding x's 1 episode - 04/16-04/19 Encounter Details Date Type Department Care Team Description 05/11/2016 Office Visit [facility] Kodama, Christy Vagina l bleeding [place] Donnelly MD (Primary Dx) [address] [facility] [place] [address] [place] [address] [place] [address] [place] [address] (Wo rk) Social History [...] How often do you attend uatsdin or baptism Patient refused 08/08/2019 services? Do [...] Comments Blood Pressure 110/68 05/11/2016 1:58 PM PROJECT MANAGER PROCESS DEVELOPMENT Pulse 72 05/11/2016 1:58 PM PROJECT MANAGER PROCESS DEVELOPMENT Temperature - - Respiratory Rate - - Oxygen Saturation - - Inhaled Oxygen Concentration - - Weight 85.3 kg (188 lb) 05/11/2016 1:58 PM PROJECT MANAGER PROCESS DEVELOPMENT Height - - Body Mass Index 34.39 05/03/2016 11:19 AM PROJECT MANAGER PROCESS DEVELOPMENT documented in this encounter Progress Notes Kallie [...] regular Nurse assisted visit. Kallie Blanco MA. ECT MANAGER PROCESS DEVELOPMENT Christy Ibarra MD - 05/11/2016 12:50 PM CST Subjective: Megan Choi, a 51 y/o female, presents for follow up of pelvic US. Patient reports light vaginal bleeding 04/16/16-04/19/16. [place] like a period, +PMS, breast tenderness,pelvic pressure. Reports pelvic pressure since February. Confirms minimal discharge, has now stopped. Denies bladder or bowel problems. Sexually active, endorses dyspareunia alleviated with estrace cream. 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 Patient notes persistent fatigue. Reports [...] Relation Age of Onset ??? Cardiovascular Mother DC age 72 ??? Cardiovascular Father DC early 40s, subsequent bipass ??? DIABETES Mother [...] behalf by Gisele Newberry, a trained medical housekeeper. The creation of this document is based the provider's statements to the medical housekeeper. Gisele Newberry May 11, 2016 12:50 PM [...] in this document, created by the medical housekeeper for me, accurately reflects the services I personally performed and the decisions made by me. I have reviewed and approved this document for accuracy prior to leaving the patient care area. 05/11/2016 12:51 PM Christy Ibarra M.D. ECT MANAGER PROCESS DEVELOPMENT documented in this encounter Plan of Treatment Not on filedocumented as of this encounter Visit Diagnoses Diagnosis Vaginal bleeding - Primary Other specified noninflammatory disorder of vagina documented in this encounter Additional Health Concerns Assessment Noted Time PHQ-9 Depression Total Score: 11 05/02/2016 7:09 AM CS T documented as of this encounter Care Teams Video Editing Intern Relationship Specialty Start Date End Date Vanda Guerrero MD PCP - General Internal Medicine 04/08/15 01/08/19 [address] [facility] [place] [address] documented as of this encounter
--- OUTSIDE RECORDS SUMMARY | 2022-01-17 22:35 | XMS_ITS | Encounter Summary ---
:1965 Author Organization [facility] Address [address] [place] [address] Care Team Providers Name Role Phone Vanda Guerrero MD Primary Care Provider [phone] Reason for Visit (Routine) - Closed Specialty Diagnoses / Procedures Referred By Contact Refer red To Contact Radiology / Radiology. Diagnoses Epic Order, sb pt. Voicemail Reminder placed 05/03/16 [facility] [place] [address] [place] [address] Phone: Fax: Referral ID Status Reason Start Date Expiration Date Visits Requ ested Visits Authorized [id number] Closed 05/05/2016 05/05/2017 1 1 Encounter Details Date Type Department Care Team Description 05/05/2016 Hospital Encounter [facility] Agatha Null B ilateral ankle [facility] DPM, joint pain [address] [facility] [address] [place] [address] COUNT [facility]CLUDES [facility] [address] [facility] [address] [place], [place] [id number] Social History Tobacco Use Types Packs/Day Years [...] How often do you attend tenriism or anabaptism Patient refused 08/08/2019 services? Do [...] or female climacteric states fluticasone (FLONASE) 50 [place] 1-2 sprays 3 Bottle 3 05/0306/12/2017 MCG/ACT [...] PM Bilateral ankle Results for this CONTRAST RADIO TELEVISION ANNOUNCER joint pain procedure are i n the results section. documented in this encounter Results MR Ankle Right w/o Contrast (05/05/2016 1:06 PM RADIO TELEVISION ANNOUNCER) Anatomical Region Laterality Modality Right Ankle, SUBRAD MR MSK, UMP MR MSK M agnetic Resonance Specimen (Source) Anatomical Location Collection Method / Collectio n Time Received Time / Laterality Volume Impressions 05/05/2016 4:51 PM RADIO TELEVISION ANNOUNCER IMPRESSION: ?? 1. Type II accessory navicular [...] ROHAN PINK MD Narrative 05/05/2016 4:51 PM RADIO TELEVISION ANNOUNCER MR ANKLE RIGHT WITHOUT CONTRAST 05/05/2016 1:06 [...] documented as of this encounter Care Teams Laser Technician Relationship Specialty Start Date End Date Vanda Guerrero MD PCP - General Internal Medicine 04/08/15 01/08/19 [address] [facility] [address] [place], [place] [address] documented as of this encounter
--- OUTSIDE RECORDS SUMMARY | 2022-01-17 22:35 | XMS_ITS | Encounter Summary ---
:1965 Author Organization [facility] Address [address] [place] [address] Care Team Providers Name Role Phone Vanda Guerrero MD Primary Care Provider [phone] Reason for Visit (Routine) - Closed Specialty Diagnoses / Procedures Referred By Contact Refer red To Contact Radiology / Radiology. Diagnoses Epic Order, sb pt. [place] [address] [place] [address] Phone: Fax: Referral ID Status Reason Start Date Expiration Date Visits Requ ested Visits Authorized [id number] Closed 05/05/2016 05/03/2017 1 1 Encounter Details Date Type Department Care Team Description 05/05/2016 Hospital Encounter [facility] Agatha Null B ilateral ankle [facility] DPM, joint pain [address] [facility] [address] [place] [address] [place] [address] [facility] [address] [place], [place] [id number] Social History Tobacco Use Types Packs/Day Years [...] How often do you attend buddhism or moravian Patient refused 08/08/2019 services? Do [...] or female climacteric states fluticasone (FLONASE) 50 [place] 1-2 sprays 3 Bottle 3 05/0306/12/2017 MCG/ACT [...] Bilateral ankle R esults for this CONTRAST ADVERTISING DESIGNER joint pain procedure are i n the results section. documented in this encounter Results MR Ankle Left w/o Contrast (05/05/2016 1:32 PM ADVERTISING DESIGNER) Anatomical Region Laterality Modality Left Ankle, SUBRAD MR MSK, UMP MR MSK Ma gnetic Resonance Specimen (Source) Anatomical Location Collection Method / Collectio n Time Received Time / Laterality Volume Impressions 05/05/2016 4:51 PM ADVERTISING DESIGNER IMPRESSION: ?? 1. Type II accessory navicular [...] ROHAN PINK MD Narrative 05/05/2016 4:51 PM ADVERTISING DESIGNER MR ANKLE LEFT WITHOUT CONTRAST 05/05/2016 1:32 [...] documented as of this encounter Care Teams Java User Interface Developer Relationship Specialty Start Date End Date Vanda Guerrero MD PCP - General Internal Medicine 04/08/15 01/08/[address] [place] [address] documented as of this encounter
--- OUTSIDE RECORDS SUMMARY | 2022-01-17 22:35 | XMS_ITS | Encounter Summary ---
:1965 Author Organization [facility] Address [address] [place] [address] Care Team Providers Name Role Phone Vanda Guerrero MD Primary Care Provider [phone] Reason for Visit Reason Onset Date Comments Refill Request 06/05/2016 Zanaflex Encounter Details Date Type Department Care Team Description 06/05/2016 Refill [facility] Vanda Guerrero R efill Request Clinic [facility] (Zanaflex) [address] [facility] [address] [place] [address] [place] [phone] Social History Tobacco Use Types Packs/Day Years [...] How often do you attend anabaptist or baptism Patient refused 08/08/2019 services? Do [...] Nicole Magana RN - 06/05/2016 1:16 PM PRIVATE DUTY AIDE Zanaflex Last Written Prescription Date: 12/31/2015 Last Fill Quantity: 90 tablet, # refills: 5 Last Office Visit with [facility], UMP or Health prescribing provider: 06/01/2016 with AF (pre-op) Future Office visit: Next 5 appointments (look out 90 days) Jun 13, 2016 10:00 AM Return Visit with Agatha Null DPM, [facility] [address] [place] [address] Routing refill request to provider for review/approval because: Drug not on the [facility], UMP or Health refill protocol or controlled substance Nicole Magana, RN, BSN, PHN ATE DUTY AIDE documented in this encounter Plan of Treatment Not on filedocumented as of this encounter Visit Diagnoses Diagnosis Cervicalgia - Primary History of fusion of cervical spine Arthrodesis status History of lumbar fusion documented in this encounter Additional Health Concerns Assessment Noted Time PHQ-9 Depression Total Score: 11 05/02/2016 7:09 AM CS T documented as of this encounter Care Teams Operations Superintendent Relationship Specialty Start Date End Date Vanda Guerrero MD PCP - General Internal Medicine 04/08/15 01/08/[address] [facility] [place] [address] documented as of this encounter
--- OUTSIDE RECORDS SUMMARY | 2022-01-17 22:35 | XMS_ITS | Encounter Summary ---
:1965 Author Organization [place] Address [address] [place] [address] Care Team Providers Name Role Phone Vanda Guerrero MD Primary Care Provider [phone] Reason for Visit Reason Comments Pre-Op Exam Encounter Details Date Type Department Care Team Description 06/01/2016 Office Visit [facility] Noreen Corbett Preop gen eral physical exam (Primary Dx); Clinic Pino Mcneil MD Type 2 diabetes mellitus without complic ation, without long-term current use of insulin (H); [address] [facility] Injur y of peroneal tendon of left foot, subsequent encounter; [facility] [place] Heart murmur [address] [place] [address] [place] [phone] Social History Tobacco Use Types Packs/Day Years [...] often do you attend roman catholic or voodoo Patient refused 08/08/2019 services? [...] Comments Blood Pressure 104/68 06/01/2016 10:14 AM MACHINE GROUP LEADER Pulse 72 06/01/2016 10:14 AM MACHINE GROUP LEADER Temperature - - Respiratory Rate - - Oxygen Saturation - - Inhaled Oxygen Concentration - - Weight 86.6 kg (191 lb) 06/01/2016 10:14 AM MACHINE GROUP LEADER Height - - Body Mass Index 34.93 05/16/2016 9:43 AM MACHINE GROUP LEADER documented in this encounter Patient Instructions Patient [...] and have clean sheets on your bed. INE GROUP LEADER documented in this encounter Progress Notes Noreen Corbett MD - 06/01/2016 10:17 AM CST [address] [facility] [address] Dept: [phone] PRE-OP EVALUATION: Today's date: 06/01/2016 Megan Choi (: 1965) presents for pre-operative evaluation assessment as requested by Dr. Null. She requires evaluation and anesthesia risk assessment prior to undergoing surgery/procedure for treatment of left ankle . Proposed procedure: repair of tendon in left ankle Date of Surgery/ Procedure: 06/08/16 Time of Surgery/ Procedure: 10:10am Hospital/Surgical Facility: [facility] Primary Physician: Vanda Guerrero Type of Anesthesia [...] ??? Obesity 04/13/2008 ??? Family history of NM (myocardial infarction) 04/13/2008 At early age, father NM at age 40 Past Medical History Diagnosis [...] ??? fluticasone (FLONASE) 50 MCG/ACT nasal spray [place] 1-2 sprays into both nostrils daily 3 [...] cardiovascular risks for perioperative complications such as (NM, PE, VFib and 3?? AV Block): No [...] provided to requesting physician. [place] Preop Guidelines INE GROUP LEADER documented in this encounter Nursing Notes Kallie [...] completed using cuff size: kait Blanco ma INE GROUP LEADER documented in this encounter Plan of Treatment Not on filedocumented as of this encounter Procedures Procedure Name Priority Date/Time Associated Diagnosis Comme nts EKG 12-LEAD Routine 06/01/2016 10:37 AM Preop general Results for this COMPLETE W/READ - MACHINE GROUP LEADER physical exam procedure are in CLINICS the results section. documented in this encounter Results EKG 12-lead complete w/read - Clinics (06/01/2016 10:37 AM MACHINE GROUP LEADER) Specimen (Source) Anatomical Collection Method Collection Time Re ceived Time Location / / Volume Laterality 06/01/2016 10:37 AM MACHINE GROUP LEADER Narrative This result has an attachment that is no t available. Noreen Corbett MD ECG ORDERABLES documented in this [...] documented as of this encounter Care Teams Crayon Sawyer Relationship Specialty Start Date End Date Vanda Guerrero MD PCP - General Internal Medicine 04/08/15 01/08/[address] [facility] [address] [place] [address] documented as of this encounter
--- OUTSIDE RECORDS SUMMARY | 2022-01-17 22:35 | XMS_ITS | Encounter Summary ---
:1965 Author Organization [place] Address [address] [place] [address] Care Team Providers Name Role Phone Vanda Guerrero MD Primary Care Provider [phone] Reason for Visit Reason Onset Date Comments Prior Authorization 05/25/2016 Encounter Details Date Type Department Care Team Description 05/25/2016 Telephone [facility] Agatha Null, DPM, Pr ior Authorization Clinic [place] [facility]Foot and [address] [place] [address] Ankle [address] [place] [address] [facility] [phone] [place], [place] [address] (Wo rk) Social History [...] How often do you attend quaker or yazidi Patient refused 08/08/2019 services? Do [...] 05/25/2016 1:[address] @ [facility], , no precert is required for patient's 06/08/[address] Null. CPT code 49607. DESTRUCTIVE TESTING ENGINEER documented in this encounter Plan of Treatment Not on filedocumented as of this encounter Visit Diagnoses Not on filedocumented in this encounter Additional Health Concerns Assessment Noted Time PHQ-9 Depression Total Score: 11 05/02/2016 7:09 AM CS T documented as of this encounter Care Teams Fur Storage Clerk Relationship Specialty Start Date End Date Vanda Guerrero MD PCP - General Internal Medicine 04/08/15 01/08/[address] [facility] [facility] [address] [place], [place] [address] documented as of this encounter
--- OUTSIDE RECORDS SUMMARY | 2022-01-17 22:35 | XMS_ITS | Encounter Summary ---
:1965 Author Organization [place] Address [facility] [place] [address] Care Team Providers Name Role Phone Vanda Guerrero MD Primary Care Provider [phone] Reason for Referral [facility] Physical Therapy - Closed Specialty Diagnoses / Procedures Referred By Contact Refer red To Contact Diagnoses Post-operative state Weakness Agatha Null, JOAOM, [facility]Foot [facility] Ankle MED Surgery [address] [place] [address] [address] [place] [address] [place] [address] Phone: [phone] Referral ID Status Reason Start Date Expiration Date Visits Requ ested Visits Authorized [id number] Closed 06/20/2016 06/20/2017 1 1 Y SHOP SUPERVISOR Reason for Visit Reason Comments Surgical Followup Left peroneal tendon repair and transfer Encounter Details Date Type Department Care Team Description 06/20/2016 Office Visit [facility] Agatha De Los Santos, Post-op erative state (Primary Dx); Clinic Mcgregor DPM, Podiatry/Foot Weakness [address] [facility] [place] [address] [place] [address] [address] [place], [place] [id number] (Wo rk) Social History Tobacco Use Types [...] How often do you attend restoration or yarsani Patient refused 08/08/2019 services? Do [...] Comments Blood Pressure 116/82 06/20/2016 10:07 AM RELAY SHOP SUPERVISOR Pulse - - Temperature - - Respiratory Rate - - Oxygen Saturation - - Inhaled Oxygen Concentration - - Weight 86.6 kg (191 lb) 06/20/2016 10:07 AM RELAY SHOP SUPERVISOR Height 157.5 cm (5' 2) 06/20/2016 10:07 AM RELAY SHOP SUPERVISOR Body Mass Index 34.93 06/20/2016 10:07 AM RELAY SHOP SUPERVISOR documented in this encounter Patient Instructions Patient InstructionsLarry Michael - 06/20/2016 10:20 AM CST 1. Can get foot wet. 2. Can start minimal weight bearing in boot and crutches in 3 weeks in the house. 3. Start PT in 2 weeks. 4. Follow up in 1month Dr. Null's Clinic Schedule Sunday AM Sunday [facility] [address] [place] [address] [facility] [address] [place] [address] [facility] [address] [place] [address] Sunday PM & Sunday AM Sunday PM Surgery Scheduling Line: [phone] [facility] [place] [address] [place] [address] [facility] [address] [place] [address] Appointment [phone] General After Hours: Patient [phone] Scar Care Protocol Scarring is an unfortunate [...] appearance of the scar, as it will change consultant the next year. Scar Care 1. [...] and Ankle Surgery - 06/20/2016 10:15 AM RELAY SHOP SUPERVISOR Podiatry / Foot and Ankle Surgery Progress [...] using cuff size: regular Larry Michael MA Y SHOP SUPERVISOR documented in this encounter Plan of [...] as of this encounter Care Teams Senior Operations Analyst Relationship Specialty Start Date End Date Vanda Guerrero MD PCP - General Internal Medicine 04/08/15 01/08/[address] [place] [address] documented as of this encounter
--- OUTSIDE RECORDS SUMMARY | 2022-01-17 22:35 | XMS_ITS | Encounter Summary ---
:1965 Author Organization [place] Address [address] [place] [address] Care Team Providers Name Role Phone Vanda Guerrero MD Primary Care Provider [phone] Reason for Visit (Routine) - Closed Specialty Diagnoses / Procedures Referred By Contact Refer red To Contact Radiology / Diagnoses Epic order sb Rh Ultrasound cc Radiology. Procedures US PELVIC COMP W TRANSVAGINAL [address] [place] [address] Phone: Fax: Referral ID Status Reason Start Date Expiration Date Visits Requ ested Visits Authorized [id number] Closed 05/05/2016 05/05/2017 1 1 Encounter Details Date Type Department Care Team Description 05/05/2016 [facility] Vanda Guerrero opausal Encounter [facility] MD [facility] [address] [place] [address] [place] [address] [address] [place], [place] (Work) [address] Social History Tobacco Use [...] How often do you attend synagogue or scientology Patient refused 08/08/2019 services? Do you belong to any clubs or organizations such as No 08/08/2019 synagogue groups, [employer], [employer] or athletic groups, or school groups? How [...] or female climacteric states fluticasone (FLONASE) 50 [place] 1-2 sprays 3 Bottle 3 05/0306/12/2017 MCG/ACT [...] Results fo r this TRANSABDOMINAL AND PM HOME HEALTH CNA bleeding procedure are in TRANSVAGINAL the results section. documented in this encounter Results US Pelvic Complete with Transvaginal (05/05/2016 2:41 PM HOME HEALTH CNA) Anatomical Region Laterality Modality Abdomen/Pelvis Ultrasound Specimen (Source) Anatomical Location Collection Method / Collectio n Time Received Time / Laterality Volume Impressions 05/05/2016 3:32 PM HOME HEALTH CNA IMPRESSION: 3.2 cm intramural fibroid. No endometrial thickening. Minimal free pelvic fluid is noted. Ovar ies are unremarkable and appear atrophic. DWIGHT LOZA MD Narrative 05/05/2016 3:32 PM HOME HEALTH CNA US PELVIC COMPLETE WITH TRANSVAGINAL 05/05/2016 2:41 [...] as of this encounter Care Teams Floor Worker Relationship Specialty Start Date End Date Vanda Guerrero MD PCP - General Internal Medicine 04/08/15 01/08/19 [address] [facility] [address] [place], [place] [address] documented as of this encounter
--- OUTSIDE RECORDS SUMMARY | 2022-01-17 22:35 | XMS_ITS | Encounter Summary ---
:1965 Author Organization [place] Address [address] [place] [address] Care Team Providers Name Role Phone Vanda Guerrero MD Primary Care Provider [phone] Reason for Visit Reason Onset Date Comments Medication Question 05/08/2016 interactions with me ds Encounter Details Date Type Department Care Team Description 05/08/2016 Telephone [facility] Vanda Lal Medication Question [address] [facility] MD Catarino (interactions with [place] [address] [place] [address]) [phone] [facility] [place] [address] (Wo rk) [...] How often do you attend nondenominational or mormonism Patient refused 08/08/2019 services? Do [...] Telephone Encounter - Kallie Mishra RN - 05/08/2016 6:07 PM CST Gave verbal ok to pharmacist. 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 OK to fill. Please call pharmacy. ARCHITECTURE CONSULTANT Telephone Encounter - Graciela Barone RN - 05/08/2016 3:07 PM CST Cara pharmacist from [facility] calling regarding medication interactions with Citalopram. Omeprazole and Tizanidine in conjunction with Omeprazole may increased the QT interval. Cymbalta also interacts with Citalopram-increased serotonin. Please call pharmacist at [phone], if ok to continue these medications. Iain Barone RN ARCHITECTURE CONSULTANT documented in this encounter Plan of Treatment Not on filedocumented as of this encounter Visit Diagnoses Not on filedocumented in this encounter Additional Health Concerns Assessment Noted Time PHQ-9 Depression Total Score: 05/02/2016 7:09 AM CS T documented as of this encounter Care Teams Facilities Officer Relationship Specialty Start Date End Date Vanda Guerrero MD PCP - General Internal Medicine 04/08/15 01/08/19 [address] [facility] [place] [address] documented as of this encounter
--- OUTSIDE RECORDS SUMMARY | 2022-01-17 22:35 | XMS_ITS | Encounter Summary ---
:1965 Author Organization [place] Address [address] [place] [address] Care Team Providers Name Role Phone Vanda Guerrero MD Primary Care Provider [phone] Reason for Visit Reason Comments Foot Problems recheck afte MRI Encounter Details Date Type Department Care Team Description 05/16/2016 Office Visit [facility] Agatha Null, Foot pa in, bilateral (Primary Dx); Clinic [place] DPM, Podiatry/Foot Peroneal tendon tear, left, initial encounter; [address] [facility] and Ankle Surgery Peroneal tendon tear, right, initial enc ounter; [place] [address] Seda capellan vus, congenital; [address] [address] Fibromyalgia; [phone] [place], [place] Type 2 diabet es mellitus without [...] How often do you attend islam or jew Patient refused 08/08/2019 services? Do [...] Comments Blood Pressure 124/80 05/16/2016 9:43 AM CITY COUNCIL MEMBER Pulse - - Temperature - - Respiratory Rate - - Oxygen Saturation - - Inhaled Oxygen Concentration - - Weight 86.7 kg (191 lb 3.2 oz) 05/16/2016 9:43 AM CITY COUNCIL MEMBER Height 157.5 cm (5' 2) 05/16/2016 9:43 AM CITY COUNCIL MEMBER Body Mass Index 34.97 05/16/2016 9:43 AM CITY COUNCIL MEMBER documented in this encounter Patient Instructions Patient InstructionsAgatha Null DPM, Podiatry/Foot and Ankle Surgery - 05/16/2016 10:[address] Null can be found at these clinics: Sunday AM [facility] [address] [place] [address] Sunday PM Surgery Sunday All Day [facility] [address] [place] [address] Sunday [facility] [address] [place] [facility] [place] [place] [id number] All Day surgery Sunday [facility] [place] [address], [address] [place], [place] [address] Sunday PM [facility] [address] [facility], [address] [place] [address] TO SCHEDULE SURGERY, call Yecenia at [phone]. To Schedule appointments call: [phone] General (after hours): Patient [phone] POTENTIAL COMPLICATIONS OF FOOT AND ANKLE SURGERY [...] and Ankle Surgery - 05/16/2016 1:39 PM CITY COUNCIL MEMBER Podiatry / Foot and Ankle Surgery Progress [...] using cuff size: regular Larry Michael MA COUNCIL MEMBER documented in this encounter Plan of Treatment [...] as of this encounter Care Teams Digital Hardware Design Engineer Relationship Specialty Start Date End Date Vanda Guerrero MD PCP - General Internal Medicine 04/08/15 01/08/19 [address] [facility] [address] [place], [place] [address] documented as of this encounter
--- OUTSIDE RECORDS SUMMARY | 2022-01-17 22:35 | XMS_ITS | Encounter Summary ---
:1965 Author Organization [facility] Address [address] [place] [address] Care Team Providers Name Role Phone Vanda Guerrero MD Primary Care Provider [phone] Reason for Visit Auth/Cert Specialty Diagnoses / Procedures Referred By Contact Refer red To Contact Surgery Diagnoses Peroneal Tendon tear Rh Periop Services Procedures REPAIR TENDON PERONEAL [address] [place], [place] [address] Fax: Referral ID Status Reason Start Date Expiration Date Visits Requ ested Visits Authorized [id number] 1 1 Encounter Details Date Type Department Care Team Description 06/08/2016 Hospital Encounter [facility] Agatha Nieves P ost-operative state (Primary Dx); [place] PreOP/PostOP DPM, Peroneal tendon tear, left, subsequent encounter; [address] Podiatry/Foot and Type 2 diabetes mellitus wit hout complication, without long- term current use of insulin (H) [place], [place] Ankle Surgery [address] [place] [phone] [address] [place], [place] [id number] Social History Tobacco Use Types Packs/Day Years [...] How often do you attend faith or mormonism Patient refused 08/08/2019 services? Do you belong to any clubs or organizations such as No 08/08/2019 faith groups, [employer], fraternal or athletic groups, or school groups? [...] Comments Blood Pressure 122/69 06/08/2016 1:00 PM HR PAYROLL COORDINATOR Pulse - - Temperature 36.8 ??C (98.2 ??F) 06/08/2016 1:00 PM HR PAYROLL COORDINATOR Respiratory Rate 16 06/08/2016 12:59 PM HR PAYROLL COORDINATOR Oxygen Saturation 95% 06/08/2016 1:20 PM HR PAYROLL COORDINATOR Inhaled Oxygen Concentration - - Weight 87.1 kg (192 lb 1.6 oz) 06/08/2016 8:52 AM HR PAYROLL COORDINATOR Height 157.5 cm (5' 2) 06/08/2016 8:52 AM HR PAYROLL COORDINATOR Body Mass Index 35.14 06/08/2016 8:52 AM HR PAYROLL COORDINATOR documented in this encounter Discharge Instructions Discharge [...] take any ibuprofen products until 3:15 pm. PAYROLL COORDINATOR documented in this encounter Medications at Time [...] or female climacteric states fluticasone (FLONASE) 50 [place] 1-2 sprays 3 Bottle 3 05/0306/12/2017 MCG/ACT [...] days available in the hospital surgical encounter. PAYROLL COORDINATOR Source Note - Noreen Corbett MD - 06/01/2016 10:17 AM HR PAYROLL COORDINATOR [place] [id number] [facility] [address] [facility] [address] Dept: [phone] PRE-OP EVALUATION: Today's date: 06/01/2016 Megan Wong (: 1965) presents for pre-operative evaluation assessment as requested by Dr. Nieves. She requires evaluation and anesthesia risk assessment prior to undergoing surgery/procedure for treatment of left ankle . Proposed procedure: repair of tendon in left ankle Date of Surgery/ Procedure: 06/08/16 Time of Surgery/ Procedure: 10:10am Hospital/Surgical Facility: [facility] Primary Physician: Vanda Guerrero Type of Anesthesia [...] ??? Obesity 04/13/2008 ??? Family history of [place] (myocardial infarction) 04/13/2008 At early age, father [place] at age 40 Past Medical History Diagnosis [...] ??? fluticasone (FLONASE) 50 MCG/ACT nasal spray [place] 1-2 sprays into both nostrils daily 3 [...] cardiovascular risks for perioperative complications such as ([place], PE, VFib and 3?? AV Block): No [...] evaluation report is provided to requesting physician. [facility] Preop Guidelines PAYROLL COORDINATOR documented in this encounter Nursing Notes Hortencia Sawyer, RERE - 06/08/2016 12:26 PM CST Pharmacy [facility] called. Prescription question. Clarified with MD. Will receive the Enoxaparin 100mg/1mlwill give same dose just changing the dispensing container. V. O. Dr Karthik Nieves PAYROLL COORDINATOR documented in this encounter Miscellaneous Notes Op [...] DPM MT: [id number] Name: MEGAN WONG Account: [id number] : 1965 Procedure Date: 06/08/2016 Document: [id number] PAYROLL COORDINATOR Brief Op Note - Agatha Nieves DPM, Podiatry/Foot and Ankle Surgery - 06/08/2016 11:19 AM CST [facility] Brief Operative Note Pre-operative diagnosis: Peroneal [...] AM Post-operative st ate Results for this HR PAYROLL COORDINATOR procedure are i n the results section. SURGICAL PATHOLOGY Routine 06/08/2016 10:40 AM Re sults for this EXAM HR PAYROLL COORDINATOR procedure are i n the results section. REPAIR, TENDON, 06/08/2016 9:59 AM Peroneal Tendon tea r PERONEAL HR PAYROLL COORDINATOR Special Needs 5'2 / 191# stated POTASSIUM STAT 06/08/2016 9:20 AM HR PAYROLL COORDINATOR Resul ts for this procedure are i n the results section . CREATININE STAT 06/08/2016 9:20 AM HR PAYROLL COORDINATOR Resul ts for this procedure are i n the results section . GLUCOSE BY METER Routine 06/08/2016 8:58 AM HR PAYROLL COORDINATOR R esults for this procedure are i n the results section . PATHOLOGY RESULT - HIM 06/08/2016 12:00 AM HR PAYROLL COORDINATOR SCAN documented in this encounter Results (ABNORMAL) Glucose by meter (06/08/2016 11:52 AM HR PAYROLL COORDINATOR) P athologist Signature Glucose 159 (H) 70 - 99 POINT OF CARE mg/dL TEST, GLUCOSE Specimen Anatomical Collection Method Collection Time Receive d Time (Source) Location / / Volume Laterality 06/08/2016 11:52 06/08/2016 AM HR PAYROLL COORDINATOR 11:55 AM HR PAYROLL COORDINATOR Agatha Nieves DPM, Podiatry/Foot and Ankle Surgery LAB - [facility] POCT Performing Organization Address City/State/ZIP Code Phon e Number FV POINT OF CARE TEST, GLUCOSE POINT OF CARE TEST, GLUCOSE Surgical pathology exam (06/08/2016 10:40 AM HR PAYROLL COORDINATOR) Component Value Ref Test Analysis Performed At [facility] gist Range Method Time Signature Copath Report Patient Name: MEGAN WONG MR#: [id number] Specimen #: [id number] Collected: 06/08/2016 Received: 06/08/2016 Reported: 06/09/2016 11:56 [...] is no in flammation. CPT Codes: A: 72298-DL2, 57859-HZG TESTING LAB LOCATION: [address] ??[address] COLLECTION SITE: Client: [facility] Location: RHOR (R) Specimen (Source) Anatomical Collection Method Collection Time Re ceived Time Location / / Volume Laterality Tissue specimen STRUCTURE OF LEFT 06/08/2016 10:40 (specimen) FOOT / Unknown AM HR PAYROLL COORDINATOR Comment: Left foot tendon for Gross exam ination Agatha SHEPHERDM, Podiatry/Foot and Ankle Surgery LAB - [place] Performing Organization Address City/State/ZIP Code Phon e Number COPATH Creatinine (06/08/2016 9:20 AM HR PAYROLL COORDINATOR) P athologist Signature Creatinine 0.74 0.52 - 1.04 [place] mg/dL [facility] GFR Estimate 82 >60 [place] mL/min/1.7m [address] Comment: Non GFR Calc GFR Estimate If Black >90 >60 mL/min/1.7m2 [facility] GFR Calc HOSP ITAL Specimen Anatomical Collection Method Collection Time Receive d Time (Source) Location / / Volume Laterality Blood specimen 06/08/2016 9:20 AM 016 9:24 (specimen) HR PAYROLL COORDINATOR AM HR PAYROLL COORDINATOR Dusty Sanchez MD LAB - BLOOD ORDERABLES Performing Organization Address City/[facility] [address]/ZIP [facility] Phon e Number M [facility] [address] [place], [place] [address] [place] [address] [address] [place], [place] [address], [facility] [phone] Potassium (06/08/2016 9:20 AM HR PAYROLL COORDINATOR) athologist Signature Potassium 3.8 3.4 - 5.[address] [facility] mmol/L HOSPITAL Specimen Anatomical Collection Method Collection Time Receive d Time (Source) Location / / Volume Laterality Blood specimen 06/08/2016 9:20 AM 016 9:24 (specimen) HR PAYROLL COORDINATOR AM HR PAYROLL COORDINATOR Dusty Sanchez MD LAB - BLOOD ORDERABLES Performing Organization Address City/[facility] [address]/ZIP [facility] Phon e Number M [facility] [address] [place], [place] [address] [place] [address] [address] [place], [place] [address], [facility] [phone] (ABNORMAL) Glucose by meter (06/08/2016 8:58 AM HR PAYROLL COORDINATOR) P athologist Signature Glucose 136 (H) 70 - 99 POINT OF CARE mg/dL TEST, GLUCOSE Specimen Anatomical Collection Method Collection Time Receive d Time (Source) Location / / Volume Laterality 06/08/2016 8:58 AM 6 9:00 HR PAYROLL COORDINATOR AM HR PAYROLL COORDINATOR Agatha Nieves DPM, Podiatry/Foot and Ankle Surgery LAB - [place] POCT Performing Organization Address City/State/ZIP Code Phon e Number FV POINT OF CARE TEST, GLUCOSE POINT OF CARE TEST, GLUCOSE PATHOLOGY RESULT - HIM SCAN (06/08/2016 12:00 AM HR PAYROLL COORDINATOR) Specimen (Source) Anatomical Location Collection Method / [...] (ROXICODONE) IR tablet Given 06/08/2016 12:23 PM HR PAYROLL COORDINATOR 5 mg 5-10 mg 5-10 mg, Oral, ONCE PRN, moderate to severe pain, Starting on Elda 06/08/16 at 1107, For 1 dose, One time prior to discharge., Post-procedure documented in this encounter Active and Recently Administered Medications Times are shown in HR PAYROLL COORDINATOR. Scheduled Medication Order 06/06/2016 06/07/2016 06/08/2016 ceFAZolin [...] documented as of this encounter Care Teams Librarian Helper Relationship Specialty Start Date End Date Vanda Guerrero MD PCP - General Internal Medicine 04/08/15 01/08/19 [address] [facility] [place] [address] documented as of this encounter
--- OUTSIDE RECORDS SUMMARY | 2022-01-17 22:36 | XMS_ITS | Encounter Summary ---
:1965 Author Organization [facility] Address [address] [place] [address] Care Team Providers Name Role Phone Vanda Guerrero MD Primary Care Provider [phone] Reason for Visit Reason Onset Date Comments Refill Request 08/20/2015 tiZANidine (ZANAFLEX ) 4 MG tablet Encounter Details Date Type Department Care Team Description 08/20/2015 Refill [facility] Vanda Lal, Refill Request 1440 Priscilla Bass MD (tiZANidine (ZANAFLEX) [place] [phone] [place] [address] 4 MG tablet) [phone] [facility] [place] [id number] (Wo rk) Social History Tobacco Use Types [...] How often do you attend hindu or synagogue Patient refused 08/08/2019 services? Do you belong to any clubs or organizations such as No 08/08/2019 hindu groups, unions, [employer] or athletic groups, or school groups? How [...] # refills: 5 Last Office Visit with [facility] or Health prescribing provider: 04/08/15 Future Office visit: Routing refill request to provider for review/approval because: Drug not on the [facility] or Health refill protocol or controlled substance SEAMAN documented in this encounter Plan of Treatment Not on filedocumented as of this encounter Visit Diagnoses Diagnosis Cervicalgia - Primary History of fusion of cervical spine Arthrodesis status History of lumbar fusion documented in this encounter Additional Health Concerns Assessment Noted Time PHQ-9 Depression Total Score: 13 07/09/2015 7:49 AM CS T documented as of this encounter Care Teams Biochemist Relationship Specialty Start Date End Date Vanda Guerrero MD PCP - General Internal Medicine 04/08/15 01/08/[address] [facility] [address] [place], [place] [address] documented as of this encounter
--- OUTSIDE RECORDS SUMMARY | 2022-01-17 22:36 | XMS_ITS | Encounter Summary ---
:1965 Author Organization [facility] Address [address] [place] [address] Care Team Providers Name Role Phone Vanda Guerrero MD Primary Care Provider [phone] Reason for Visit Reason Comments Cough Otalgia Encounter Details Date Type Department Care Team Description 07/08/2015 Office Visit [facility] Serum, Keyona Acute bro nchitis, unspecified organism (Primary Dx); Pino Panda MD Middle ear effusion, bilateral [address] [place] [address] [place] [phone] [address] [place], [place] [address] Social History Tobacco Use [...] How often do you attend scientology or roman catholic Patient refused 08/08/2019 services? [...] Comments Blood Pressure 100/68 07/08/2015 11:18 AM LEGAL EXAMINER Pulse 96 07/08/2015 11:18 AM LEGAL EXAMINER Temperature 37.2 ??C (98.9 ??F) 07/08/2015 11:18 AM LEGAL EXAMINER Respiratory Rate - - Oxygen Saturation 98% 07/08/2015 11:18 AM LEGAL EXAMINER Inhaled Oxygen Concentration - - Weight 80.1 kg (176 lb 8 oz) 07/08/2015 11:18 AM LEGAL EXAMINER Height 158.8 cm (5' 2.5) 07/08/2015 11:18 AM LEGAL EXAMINER Body Mass Index 31.77 07/08/2015 11:18 AM LEGAL EXAMINER documented in this encounter Patient Instructions Patient InstructionsSerum, Keyona Panda MD - 07/08/2015 12:01 PM LEGAL EXAMINER 1. Augmentin 1 pill twice a day for 10 days 2. Continue allergy medications 3. Continue ibuprofen as needed for pain/fevers 4. Follow-up if not improving or getting worse L EXAMINER documented in this encounter Progress Notes Keyona [...] list, Allergies, and Medical/Social/Surgical histories reviewed in [facility] andupdated as appropriate. OBJECTIVE: BP 100/68 mmHg [...] as needed See Patient Instructions Keyona Sexton [facility] L EXAMINER documented in this encounter Nursing Notes Adele [...] completed using cuff size: yennifer OSMAN SMA L EXAMINER documented in this encounter Plan of Treatment Not on filedocumented as of this encounter Visit Diagnoses Diagnosis Acute bronchitis, unspecified organism - Primary Middle ear effusion, bilateral documented in this encounter Additional Health Concerns Assessment Noted Time PHQ-9 Depression Total Score: 13 07/09/2015 7:49 AM CS T documented as of this encounter Care Teams Harvest Manager Relationship Specialty Start Date End Date Vanda Guerrero MD PCP - General Internal Medicine 04/08/15 01/08/19 [address] [facility] [place] [address] documented as of this encounter
--- OUTSIDE RECORDS SUMMARY | 2022-01-17 22:36 | XMS_ITS | Encounter Summary ---
:1965 Author Organization [facility] Address [address] [place] [address] Care Team Providers Name Role Phone Vanda Guerrero MD Primary Care Provider [phone] Encounter Details Date Type Department Care Team Description 04/04/2016 Radiant Appointment [facility] Agatha Null, Pain in both feet Clinic [place] DPM, [address] [facility] Podiatry/Foot and [place], [place] Ankle Surgery [address] [address] [phone] [facility] [address] [place] [address] Social History Tobacco Use Types [...] How often do you attend spiritism or sabianist Patient refused 08/08/2019 services? Do [...] within normal l imits. Procedure Note Jose Doa MD - 04/05/2016For matting of this note [...] documented as of this encounter Care Teams Online Activist Relationship Specialty Start Date End Date Vanda Guerrero MD PCP - General Internal Medicine 04/08/15 01/08/19 [address] [facility] [place] [address] documented as of this encounter
--- OUTSIDE RECORDS SUMMARY | 2022-01-17 22:36 | XMS_ITS | Encounter Summary ---
:1965 Author Organization [facility] Address [address] [place] [address] Care Team Providers Name Role Phone Vanda Guerrero MD Primary Care Provider [phone] Reason for Visit Reason Onset Date Comments Refill Request 12/23/2015 TOPIRAMATE 50MG Refill Request 12/23/2015 OMEPRAZOLE 20MG Encounter Details Date Type Department Care Team Description 12/23/2015 Refill [facility] Vanda Lal, Refill Request 1440 Priscilla Bass MD (TOPIRAMATE 50MG); [place] [address] [facility] Refill Request [phone] NASIR ANDRE (OMEPRAZOLE 20MG) [place] [address] [...] # refills: PRN Last Office Visit with [facility] or Health prescribing provider: 12/22/2015 BP Readings from Last 3 Encounters: 12/22/15 110/76 11/01/15 114/66 09/29/15 114/68 CREATININE Date Value Ref Range Status 09/30/2015 0.67 0.52 - 1.04 mg/dL Final OMEPRAZOLE 20MG Last Written Prescription Date: 10/06/2014 Last Fill Quantity: 90, # refills: PRN Last Office Visit with [facility] or [employer] prescribing provider: 12/22/2015 documented in this encounter [...] as of this encounter Care Teams Radio Commentator Relationship Specialty Start Date End Date Vanda Guerrero MD PCP - General Internal Medicine 04/08/15 01/08/19 [address] [facility] [place] [address] documented as of this encounter
--- OUTSIDE RECORDS SUMMARY | 2022-01-17 22:36 | XMS_ITS | Encounter Summary ---
:1965 Author Organization [facility] Address [address] [place] [address] Care Team Providers Name Role Phone Vanda Guerrero MD Primary Care Provider [phone] Reason for Visit (Routine) - Closed Specialty Diagnoses / Procedures Referred By Contact Refer red To Contact Radiology / Diagnoses prev [facility] Rh Ultrasound Breast Radiology. Procedures US BREAST LT CMPL [facility] [address], [address] [place] [address] Phone: Referral ID Status Reason Start Date Expiration Date Visits Requ ested Visits Authorized [id number] Closed 09/30/2015 09/29/2016 1 1 Encounter Details Date Type Department Care Team Description 09/30/2015 Hospital Encounter [facility] Vanda Guerrero reast pain, left [place] Breast MD Catar[place] [address] [place] [address] [place], [place] [phone] [address] (Work) [phone] Social History Tobacco Use Types Packs/Day Years [...] How often do you attend mosque or rastafarian Patient refused 08/08/2019 services? Do you belong to any clubs or organizations such as No 08/08/2019 mosque groups, [employer], fraLiquidText or athletic groups, or school groups? How [...] 2 Fibromyalgia times daily fluticasone (FLONASE) 50 [place] 1-2 sprays 3 Package 3 10/0605/03/2016 MCG/ACT [...] documented as of this encounter Care Teams Flatwork Finisher Relationship Specialty Start Date End Date Vanda Guerrero MD PCP - General Internal Medicine 04/08/15 01/08/19 [address] [facility] [place] [address] documented as of this encounter
--- OUTSIDE RECORDS SUMMARY | 2022-01-17 22:36 | XMS_ITS | Encounter Summary ---
:1965 Author Organization [facility] Address [address] [place] [address]. [place] [address] Care Team Providers Name Role Phone Vanda Guerrero MD Primary Care Provider [phone] Reason for Referral Consultation - Closed Specialty Diagnoses / Procedures Referred By Contact Refer red To Contact Diagnoses Left foot pain Vanda Guerrero MD [facility] [address] [facility] [address] [facility] [place] [address] [place] [address] Phone: Fax: Referral ID Status Reason Start Date Expiration Date Visits Requ ested Visits Authorized [id number] Closed 03/26/2016 03/26/2017 1 1 Reason for Visit Reason Comments Diabetes Lipids Recheck Medication Flu Shot Encounter Details Date Type Department Care Team Description 03/23/2016 Office Visit [facility] Vanda Guerrero Type 2 d iabetes mellitus without complication, without long-term current use of insulin (H) (Primary Dx); Pino Toribio MD Elevated alkaline phosphatase level; [address] [facility] Left foot pain; [place] DR Moderate episode of recurrent major depr essive disorder (H); [address] [place] [address] Gastroesophageal reflux disease without esophagitis; [phone] Fibromyalgia; (Work) Migraine without status migrainosus, not [...] How often do you attend religious or baptism Patient refused 08/08/2019 services? Do [...] to be active. Recently started therapy at [facility] - going weekly for the next [...] SPLIT VIRUS IM > 3 YO (QUADRIVALENT) [52168] Vaccine Administration, Each Additional [93959] Vanda Guerrero MD [facility] Injectable Influenza Immunization Documentation 1. Is the person to be vaccinated sick today? No 2. Does the person to be vaccinated have an allergy to eggs or to a component of the vaccine? No 3. Has the person to be vaccinated today ever had a serious reaction to influenza vaccine in the past? No 4. Has the person to be vaccinated ever had Guillain-[place] syndrome? No Form completed by patient documented [...] Signature GGT 33 0 - 40 U/L [facility] Specimen Anatomical Collection Method Collection Time Receive d Time (Source) Location / / Volume Laterality 03/23/2016 7:17 PM 6 7:19 CDT PM CDT Vanda Guerrero MD LAB - BLOOD ORDERABLES Performing Organization Address City/State/ZIP Code Phon e Number [facility] [address] [place] [address] (ABNORMAL) Hemoglobin A1c (03/23/2016 7:17 PM CDT) Patholo gist Method Time Signature Hemoglobin A1C 6.1 (H) 4.3 - 6.0 [facility] Specimen Anatomical Collection Method Collection Time Receive d Time (Source) Location / / Volume Laterality Blood specimen 03/23/2016 7:17 PM 016 7:19 (specimen) CDT PM CDT Vanda Guerrero MD LAB - BLOOD ORDERABLES Performing Organization Address City/State/ZIP Code Phon e Number [facility] [address] [place] [address] (ABNORMAL) Comprehensive metabolic panel (03/23/2016 7:17 PM CDT) [facility] Method Time Signature Sodium 142 133 - 144 [place] mmol/L [facility] Potassium 4.4 3.4 - 5.3 [place] mmol/L [facility] Chloride 110 (H) 94 - 109 [place] mmol/L [facility] Carbon Dioxide 29 20 - 32 [place] mmol/L [facility] Anion Gap 3 3 - 14 [place] mmol/L [facility] Glucose 106 (H) 70 - 99 [place] mg/dL [facility] Urea Nitrogen 17 7 - 30 [place] mg/dL [facility] Creatinine 0.77 0.52 - [place] 1.04 mg/dL [facility] GFR Estimate 78 >60 [place] mL/min/1.7 CLINICS m2 [facility] Comment: Non GFR Calc GFR Estimate If Black >90 >60 mL/min/1.7m2 F [facility] GFR Calc [facility] [place] [facility] Calcium 9.6 8.5 - 10.1 mg/dL [place] CLIN ICS [facility] Bilirubin Total 0.3 0.2 - 1.3 mg/dL [facility] Albumin 3.8 3.4 - 5.0 g/dL [facility] S [facility] Protein Total 7.9 6.8 - 8.8 g/dL [place] [facility] INICS [facility] Alkaline Phosphatase 159 (H) 40 - 150 U/L [facility] ALT 30 0 - 50 U/L [facility] AST 16 0 - 45 U/L [facility] Specimen Anatomical Collection Method Collection Time Receive d Time (Source) Location / / Volume Laterality Blood specimen 03/23/2016 7:17 PM 016 7:19 (specimen) CDT PM CDT Vanda Guerrero MD LAB - BLOOD ORDERABLES Performing Organization Address City/State/ZIP Code Phon e Number [facility] [place] [address] [place] [address] documented in this encounter Visit Diagnoses Diagnosis [...] Need for prophylactic vaccination with c ombined ikjenqbfdc-wxfctte-vgwyzzpeb (DTP) vaccine Need for prophylactic vaccination and in oculation against influenza documented in this encounter Additional Health Concerns Assessment Noted Time PHQ-9 Depression Total Score: 10 12/23/2015 7:15 AM CD T documented as of this encounter Care Teams Director Of Cardiology Service Line Relationship Specialty Start Date End Date Vanda Geurrero MD PCP - General Internal Medicine 04/08/15 01/08/19 18[address] [facility] [place] [address] documented as of this encounter
--- OUTSIDE RECORDS SUMMARY | 2022-01-17 22:36 | XMS_ITS | Encounter Summary ---
:1965 Author Organization [place] Address [address] [place] [address] Care Team Providers Name Role Phone Vanda Guerrero MD Primary Care Provider [phone] Reason for Visit Reason Onset Date Comments Patient Request 10/27/2015 Should patient get l abs re-checked? Encounter Details Date Type Department Care Team Description 10/27/[address] [facility] Vanda Lal [facility] [place] (Should patient get [place] [phone] 3305 [facility] labs re-checked?) [phone] [facility] [place] [address] (Wo rk) Social [...] How often do you attend sabianist or denominational Patient refused 08/08/2019 services? Do [...] documented as of this encounter Care Teams Coordinate Measuring Machine Operator Relationship Specialty Start Date End Date Vanda Guerrero MD PCP - General Internal Medicine 04/08/15 01/08/[address] [place] [address] documented as of this encounter
--- OUTSIDE RECORDS SUMMARY | 2022-01-17 22:36 | XMS_ITS | Encounter Summary ---
:1965 Author Organization [place] Address [address] [place] [address] Care Team Providers Name Role Phone Vanda Guerrero MD Primary Care Provider [phone] Reason for Visit Reason Onset Date Comments Refill Request 03/07/2016 METFORMIN 500MG Encounter Details Date Type Department Care Team Description 03/07/2016 Refill [facility] Vanda Lal, Refill Request 1440 Pro[employer] biostructuresmalcolm Kali SALDANA (METFORMIN 500MG) [place] [phone] [facility] [facility] [phone] [facility] [place] [address] (Wo rk) [...] How often do you attend latter-day or anglican Patient refused 08/08/2019 services? Do [...] AM Office Visit with Vanda Guerrero MD [facility]3] [place] ([facility] [address] [place] [address] BP Readings from Last 3 Encounters: [...] documented as of this encounter Care Teams Hat Parts Cutter Machine Relationship Specialty Start Date End Date Vanda Guerrero MD PCP - General Internal Medicine 04/08/15 01/08/19 [facility] [place] [address] documented as of this encounter
--- OUTSIDE RECORDS SUMMARY | 2022-01-17 22:36 | XMS_ITS | Encounter Summary ---
:1965 Author Organization [place] Address [address] [place] [address] Care Team Providers Name Role Phone Vanda Guerrero MD Primary Care Provider [phone] Encounter Details Date Type Department Care Team Description 01/07/2016 Orders Only [facility] Eag an Colon cancer screening [facility] [place] [address] Social History Tobacco Use Types [...] How often do you attend confucianism or voodoo Patient refused 08/08/2019 services? Do [...] logist Time Signature Occult Blood Negative NEG [facility] Specimen Anatomical Collection Method Collection Time Receive d Time (Source) Location / / Volume Laterality Stool specimen 01/07/2016 11:41 6 (specimen) AM CDT 11:42 AM CDT Vanda Guerrero MD LAB - STOOLS ORDERABLES Performing Organization Address City/State/ZIP Code Phon e Number [facility] [address] [place], [place] [id number] [place] [address] documented in this encounter Visit Diagnoses Diagnosis Colon cancer screening Special screening for malignant neoplasm s, colon documented in this encounter Additional Health Concerns Assessment Noted Time PHQ-9 Depression Total Score: 10 12/23/2015 7:15 AM CD T documented as of this encounter Care Teams Client Services Account Manager Relationship Specialty Start Date End Date Vanda Guerrero MD PCP - General Internal Medicine 04/08/15 01/08/19 [address] [facility] [place] [address] documented as of this encounter
--- OUTSIDE RECORDS SUMMARY | 2022-01-17 22:36 | XMS_ITS | Encounter Summary ---
:1965 Author Organization [place] Address [address] [place] [address] Care Team Providers Name Role Phone Vanda Guerrero MD Primary Care Provider [phone] Encounter Details Date Type Department Care Team Description 10/03/2015 Orders Only [facility] Vanda Guerrero Abnormal finding on [place] Toribio MD thyroid function test [address] (Primary Dx) [place] [address] [facility] [phone] [place] [address] (Wo rk) Social History [...] How often do you attend jew or jainism Patient refused 08/08/2019 services? Do you belong to any clubs or organizations such as 08/08/2019 jew groups, unions, fraternal or athletic [...] Thyroid stimulating immunoglobulin (12/03/2015 8:50 AM CDT) [facility] Method Time Signature Thyroid Stim <1.0 [place] Immunog Reference range: <=1.3 [facility] Unit: TSI index [place] (Note) Test Performed by: [address] [address] Radio Announcer: Huseyin Dash II, M.D., Ph.D. Specimen Anatomical Collection Method Collection Time Receive d Time (Source) Location / / Volume Laterality Blood specimen 12/03/2015 8:50 AM 016 8:55 (specimen) CDT AM CDT Vanda Guerrero MD LAB - BLOOD ORDERABLES Performing Organization Address City/State/ZIP Code Phon e Number [facility] [place] 14[address] [facility] [place] [address] documented in this encounter Visit Diagnoses Diagnosis Abnormal finding on thyroid function shirley t - Primary Nonspecific abnormal results of thyroid function study documented in this encounter Additional Health Concerns Assessment Noted Time PHQ-9 Depression Total Score: 13 07/09/2015 7:49 AM CS T documented as of this encounter Care Teams Software Support Engineer Relationship Specialty Start Date End Date Vanda Guerrero MD PCP - General Internal Medicine 04/08/15 01/08/[address] [facility] [place] [address] documented as of this encounter
--- OUTSIDE RECORDS SUMMARY | 2022-01-17 22:36 | XMS_ITS | Encounter Summary ---
:1965 Author Organization [place] Address [address] [place] [address] Care Team Providers Name Role Phone Vanda Guerrero MD Primary Care Provider [phone] Encounter Details Date Type Department Care Team Description 12/03/2015 Orders Only [facility] Eag an Type 2 diabetes mellitus wit hout complication (H); [address] Abnormal finding on thyroid function test [place] [phone] Social History Tobacco Use Types Packs/Day Years [...] How often do you attend hinduism or orthodoxy Patient refused 08/08/2019 services? Do [...] Thyroid stimulating immunoglobulin (12/03/2015 8:50 AM CDT) [facility] Method Time Signature Thyroid Stim <1.0 [place] Immunog Reference range: <=1.3 [facility]INICS Unit: TSI index JACLYN (Note) Test Performed by: [place] [id number] Sustainability Officer: Huseyin Dash II, M.D., Ph.D. Specimen Anatomical Collection Method Collection Time Receive d Time (Source) Location / / Volume Laterality Blood specimen 12/03/2015 8:50 AM 016 8:55 (specimen) CDT AM CDT Vanda Guerrero MD LAB - BLOOD ORDERABLES Performing Organization Address City/[facility]/ZIP Code Phon e Number [place] [address] [place] [address] TSH with free T4 reflex (12/03/2015 8:50 AM CDT) athologist Signature TSH 3.93 0.40 - 4.00 [facility] mU/L [facility] Specimen Anatomical Collection Method Collection Time Receive d Time (Source) Location / / Volume Laterality Blood specimen 12/03/2015 8:50 AM 016 8:55 (specimen) CDT AM CDT Vanda Guerrero MD LAB - BLOOD ORDERABLES Performing Organization Address City/[facility]/ZIP Code Phon e Number [facility] [address] [place] [address] Lipid panel reflex to direct LDL (12/03/2015 8:50 AM CDT) P athologist Signature Cholesterol 152 <200 mg/dL [facility] Triglycerides 109 <150 mg/dL [facility] Comment: Fasting specimen HDL Cholesterol 51 >49 mg/dL [facility] LDL Cholesterol Calculated 79 <100 mg/dL FA [facility] Comment: Desirable: <100 mg/dl Non HDL Cholesterol 101 <130 mg/dL [facility] Specimen Anatomical Collection Method Collection Time Receive d Time (Source) Location / / Volume Laterality Blood specimen 12/03/2015 8:50 AM 016 8:55 (specimen) CDT AM CDT Vanda Guerrero MD LAB - BLOOD ORDERABLES Performing Organization Address City/[facility]/ZIP Code Phon e Number [facility] [address] [place] [address] documented in this encounter Visit Diagnoses Diagnosis Type 2 diabetes mellitus without complic ation (H) Abnormal finding on thyroid function shirley t Nonspecific abnormal results of thyroid function study documented in this encounter Additional Health Concerns Assessment Noted Time PHQ-9 Depression Total Score: 13 07/09/2015 7:49 AM CS T documented as of this encounter Care Teams Chopped Strand Operator Relationship Specialty Start Date End Date Vanda Guerrero MD PCP - General Internal Medicine 04/08/15 01/08/19 10[address] [facility] [place] [address] documented as of this encounter
--- OUTSIDE RECORDS SUMMARY | 2022-01-17 22:36 | XMS_ITS | Encounter Summary ---
:1965 Author Organization [place] Address [address] [place] [address] Care Team Providers Name Role Phone Vanda Guerrero MD Primary Care Provider [phone] Reason for Visit Reason Onset Date Comments Refill Request 02/20/2016 loratadine-pseudoePH EDrine (CLARITIN-D 24-HOUR) 10-240 MG per tablet Encounter Details Date Type Department Care Team Description 02/20/2016 Refill [facility] Eag an [place] Good Refill Request [address] J, POTATO PEELER ANIMAL LABORATORY TECHNICIAN (loratadine-pseudoePHEDr [place] [phone] 2472 [facility] (CLARITIN-D 24-HOUR) [phone] 10-240 MG per tablet) DAV[place] [...] How often do you attend nondenominational or restorationism Patient refused 08/08/2019 services? Do [...] for review/approval because: Drug not on the [facility] refill protocol or controlled substance Raven Emmanuel RN Telephone Encounter - Sukh Beltran - 02/20/2016 1:00 PM CDT loratadine-pseudoePHEDrine (CLARITIN-D 24-HOUR) 10-240 MG per tablet Last Written Prescription Date: 12-22-2014 Last Fill Quantity: 90, # refills: prn Last Office Visit with [facility] or [facility] prescribing provider: 12-22-2015 Next 5 appointments (look out 90 days) Mar 23, 2016 10:20 AM Office Visit with Vanda Guerrero MD [facility] [place] [facility] [place] [address] [place] [address] [place] [address] documented in this encounter Plan of Treatment Not on filedocumented as of this encounter Visit Diagnoses Diagnosis Seasonal allergic rhinitis - Primary Allergic rhinitis, cause unspecified documented in this encounter Additional Health Concerns Assessment Noted Time PHQ-9 Depression Total Score: 12/23/2015 7:15 AM CD T documented as of this encounter Care Teams Cellophaner Relationship Specialty Start Date End Date Vanda Guerrero MD PCP - General Internal Medicine 04/08/15 01/08/[address] [place] [address] [place] [phone] documented as of this encounter
--- OUTSIDE RECORDS SUMMARY | 2022-01-17 22:36 | XMS_ITS | Encounter Summary ---
:1965 Author Organization [place] Address [address] [place] [address] Care Team Providers Name Role Phone Vanda Guerrero MD Primary Care Provider Reason for Visit Reason Onset Date Comments Refill Request 12/31/2015 tiZANidine (ZANAFLEX ) 4 MG tablet Encounter Details Date Type Department Care Team Description 12/31/2015 Refill [facility] Vanda Lal, Refill Request 1440 Priscilla Bass MD (tiZANidine (ZANAFLEX) [place] [phone] [place] [address] 4 MG tablet) [phone] [facility] [place] [phone] (Wo rk) Social History Tobacco Use Types [...] How often do you attend pentecostalism or muslim Patient refused 08/08/2019 services? Do [...] Last Office Visit with [facility], [facility] or [facility] prescribing provider: 12/22/2015 Future Office visit: Next 5 appointments (look out 90 days) Mar 23, 2016 10:20 AM Office Visit with Vanda Guerrero MD [facility] [place] ([facility] [place]) [address] [place] [phone] Routing refill request to provider for review/approval [...] as of this encounter Care Teams Supervisor Shellfish Farming Relationship Specialty Start Date End Date Vanda Guerrero MD PCP - General Internal Medicine 04/08/15 01/08/19 [address] [facility] [place] [address] documented as of this encounter
--- OUTSIDE RECORDS SUMMARY | 2022-01-17 22:36 | XMS_ITS | Encounter Summary ---
:1965 Author Organization [place] Address [address] [place] [address] Care Team Providers Name Role Phone Vanda Guerrero MD Primary Care Provider [phone] Reason for Visit Reason Onset Date Comments Panel Management 03/09/2016 Encounter Details Date Type Department Care Team Description 03/09/[address] [facility] Vanda Lal, Panel Management 1440 [facility] [place] [phone] 6901 [facility] [phone] [facility] [place] [address] (Wo rk) [...] How often do you attend orthodoxy or adventist Patient refused 08/08/2019 services? Do you belong to any clubs or organizations such as Sarahi 08/08/2019 orthodoxy groups, unions, fraternal or athletic [...] documented as of this encounter Care Teams Wellness Health Coach Relationship Specialty Start Date End Date Vanda Guerrero MD PCP - General Internal Medicine 04/08/15 01/08/19 [address] [facility] [address] [place], [place] [address] documented as of this encounter
--- OUTSIDE RECORDS SUMMARY | 2022-01-17 22:36 | XMS_ITS | Encounter Summary ---
:1965 Author Organization [place] Address [address] [place] [address] Care Team Providers Name Role Phone Vanda Guerrero MD Primary Care Provider [phone] Reason for Visit Reason Comments RECHECK Encounter Details Date Type Department Care Team Description 11/01/2015 Office Visit [facility] Vanda Guerrero History of lumbar fusion (Primary Dx); [place] Toribio MD History of fusion of cervical spine; [address] [facility] Recurrent major depressive d isorder, remission status unspecified (H); [place] [address] [facility] Chronic left-sided low back pain with le ft-sided sciatica; [phone] [place] [address] Thyroid function test abnormal [phone] (Wo rk) Social History Tobacco Use Types [...] How often do you attend taoist or islam Patient refused 08/08/2019 services? Do [...] list, Allergies, and Medical/Social/Surgical histories reviewed in [facility] andupdated as appropriate. ROS: Constitutional, msk, [...] a visit 6-8 weeks Vanda Guerrero MD [facility] documented in this encounter Nursing Notes Lori [...] documented as of this encounter Care Teams Direct Care Staffer Relationship Specialty Start Date End Date Vanda Guerrero MD PCP - General Internal Medicine 04/08/15 01/08/[address] [facility] [address] [place], [place] [address] documented as of this encounter
--- OUTSIDE RECORDS SUMMARY | 2022-01-17 22:36 | XMS_ITS | Encounter Summary ---
:1965 Author Organization [place] Address [address] [place] [address] Care Team Providers Name Role Phone Vanda Guerrero MD Primary Care Provider [phone] Vanda Guerrero MD Unavailable JeanaNoreen girard PRESTRESSED CONCRETE LABORER DIVER'S TENDER Unavailable [phone] JeanaNoreen girard PRESTRESSED CONCRETE LABORER DIVER'S TENDER Unavailable [phone] JeanaNoreen girard PRESTRESSED CONCRETE LABORER DIVER'S TENDER Primary Care Provider Kalyan Galvan Unavailable Unavailable Lashae Trevino [facility] Unavailable [phone] Eduardo Sharma MD Unavailable Rios Monteiro MD Unavailable Marcelo Artsi PA-C Unavailable [phone] Rodrigo Man PA-C Unavailable Encounter Details Date Type Department Care Team Description 02/11/2016 [facility] Vanda Ray MD [facility] [address] [place] [phone] [place] [address] (Wo rk) Social History [...] How often do you attend mu-ism or gnosticism Patient refused 08/08/2019 services? Do [...] as of this encounter Care Teams Operations Technician Relationship Specialty Start Date End Date Vanda Guerrero, PCP - General Internal Medicine 04/08/15 01/08/[address] [place] [address] [place] [phone] Vanda Guerrero, PCP - Assigned PCP 07/24/16 06/15/[address] [place] [address] [place] [phone] Noreen Hills PCP - Assigned PCP 06/16/18 08/13/18 SEAN Haley DIVER'S TENDER [address] [place] [address] [place] [phone] Noreen Hills PCP - General Nurse Practitioner 01/09/19 12/12/21 SEAN Haley DIVER'S TENDER [address] [place] [address] [place] [address] Noreen Hills Assigned PCP 06/16/18 SEAN Haley DIVER'S TENDER [address] [place] [address] [place] [address] Kalyan Galvan Personal Advocate & 08/08/19 Liaison (PAL) Lashae Trevino Pharmacist Pharmacist 10/14/19 12/01/20 CLAUDIA Beck [address] [id number] Eduardo Sharma MD Assigned Sleep Provider 04/02/20 05/07/21 [address] ROSHAN [address] [place] [id number] Rios Monteiro MD Assigned Musculoskeletal 04/02/20 08/24/20 [address] [facility] Provider [address]AN [address] [place], [place] [address] Marcelo Artis Assigned Musculoskeletal 08/25/20 08/20/21 MIKAYLA Nuno Provider [address] [facility] [address] [place], [place] [phone] Rodrigo Man Assigned Surgical 08/25/2011/27 MIKAYLA Lacy Provider [address] [place], [place] [address] documented as of this encounter
--- OUTSIDE RECORDS SUMMARY | 2022-01-17 22:36 | XMS_ITS | Encounter Summary ---
:1965 Author Organization [place] Address [address] [place] [address] Care Team Providers Name Role Phone Vnada Guerrero MD Primary Care Provider [phone] Reason for Visit Reason Onset Date Comments Refill Request 11/05/2015 simvastatin, duloxet ine, citalopram Encounter Details Date Type Department Care Team Description 11/05/2015 Refill [facility] Vanda Lal, Refill Request 1440 Belcheririna Bass MD (simvastatin, [place] [phone] [place] [address] duloxetine, citalopram) [phone] [facility] [place] [phone] (Wo rk) Social History Tobacco Use Types [...] How often do you attend zoroastrian or anabaptist Patient refused 08/08/2019 services? Do [...] this regularly per pharmacy. Prescription approved per [facility] Refill Protocol. CITALOPRAM Last Written Prescription Date: [...] Last Office Visit with [facility], [facility] or [facility] prescribing provider: 11/01/2015 Next 5 appointments (look out 90 days) Dec 22, 2015 9:00 AM Office Visit with Vanda Guerrero MD [facility] [address] [place] [address] [place] [phone] CHOL 153 08/10/2014 HDL 61 08/10/2014 LDL [...] as of this encounter Care Teams Acid Conditioning Worker Relationship Specialty Start Date End Date Vanda Guerrero MD PCP - General Internal Medicine 04/08/15 01/08/[address] [facility] [address] [place], [place] [address] documented as of this encounter
--- OUTSIDE RECORDS SUMMARY | 2022-01-17 22:36 | XMS_ITS | Encounter Summary ---
:1965 Author Organization [place] Address [address] [place] [address] Care Team Providers Name Role Phone Vanda Guerrero MD Primary Care Provider [phone] Reason for Visit Reason Onset Date Comments Refill Request 12/06/2015 METFORMIN 500MG Encounter Details Date Type Department Care Team Description 12/06/2015 Refill [facility] Vanda Lal, Refill Request [address] [place] Kali SALDANA (METFORMIN 500MG) [place] [phone] 9380 [facility] [phone] [facility] [place] [address] (Wo rk) Social [...] How often do you attend hoahaoism or worship Patient refused 08/08/2019 services? Do [...] 12/08/2015 4:31 PM CDT Prescription approved [facility] Refill Protocol. Bambi Chaudhary RN Telephone Encounter - Marisa Matthew - 12/06/2015 8:14 AM CDT METFORMIN 500MG Last Written Prescription Date: 09/10/2015 Last Fill Quantity: 180, # refills: 0 Last Office Visit with G, P or [facility] prescribing provider: 11/01/2015 Next 5 appointments (look out 90 days) Dec 22, 2015 9:00 AM Office Visit with Vanda Guerrero MD [facility] [place] ([facility] [place]) [address] [facility] [place] [address] MICROL 10 09/30/2015 MICROALBUMIN [...] documented as of this encounter Care Teams Straight Slicing Machine Operator Relationship Specialty Start Date End Date Vanda Guerrero MD PCP - General Internal Medicine 04/08/15 01/08/[address] [place] [address] documented as of this encounter
--- OUTSIDE RECORDS SUMMARY | 2022-01-17 22:36 | XMS_ITS | Encounter Summary ---
:1965 Author Organization [place] Address [address] [place] [address] Care Team Providers Name Role Phone Vanda Guerrero MD Primary Care Provider [phone] Reason for Visit Reason Onset Date Comments Refill Request 06/08/2015 METFORMIN HCL 500MG Encounter Details Date Type Department Care Team Description 06/08/2015 Refill [facility] Vanda Lal, Refill Request 1440 Priscilla Bass MD (METFORMIN HCL 500MG) [place] [phone] 4020 [facility] [phone] [facility] [place] [address] (Wo rk) Social [...] How often do you attend religion or islam Patient refused 08/08/2019 services? Do [...] 06/10/2015 11:53 AM CST Prescription approved per [facility] Refill Protocol. Abigail Burciaga RN NDMAN Telephone Encounter - Eri Middleton - 06/08/2015 4:46 PM CST METFORMIN HCL 500MG Last Written Prescription Date: 10/06/2014 Last Fill Quantity: 180, # refills: 1 Last Office Visit with [facility] primary care provider: 04/08/2015 MICROL <5 08/10/2014 [...] 10/27/2013 3.8 3.4 - 5.3 mmol/L Final NDMAN documented in this encounter Plan of Treatment Not on filedocumented as of this encounter Visit Diagnoses Diagnosis Type 2 diabetes mellitus without complic ation - Primary documented in this encounter Care Teams Otr [employer] Driver Relationship Specialty Start Date End Date Vanda Guerrero MD PCP - General Internal Medicine 04/08/15 01/08/19 24[facility] [place] [address] documented as of this encounter
--- OUTSIDE RECORDS SUMMARY | 2022-01-17 22:36 | XMS_ITS | Encounter Summary ---
:1965 Author Organization [facility] Address [address] [place] [address] Care Team Providers Name Role Phone Vanda Guerrero MD Primary Care Provider [phone] Encounter Details Date Type Department Care Team Description 09/30/2015 Orders Only [facility] Eag an Type 2 diabetes mellitus wit hout complication (H); [address] Chronic fatigue [place] [address] Social [...] How often do you attend yazidism or taoist Patient refused 08/08/2019 services? Do [...] Signature T4 Free 1.01 0.76 - 1.46 [facility] ng/dL [facility] Specimen Anatomical Collection Method Collection Time Receive d Time (Source) Location / / Volume Laterality 09/30/2015 9:22 AM 6 9:23 CDT AM CDT Vanda Guerrero MD LAB - BLOOD ORDERABLES Performing Organization Address City/State/ZIP Code Phon e Number [facility] [address] [place] [address] Microalbumin quantitative random urine (09/30/2015 9:22 AM CDT) athologist Signature Creatinine 174 mg/dL [place] Urine [facility] Albumin Urine 10 mg/L [place] mg/L [facility] Albumin Urine 5.67 0 - 25 [place] mg/g Cr mg/g Cr [facility] Specimen Anatomical Collection Method Collection Time Receive d Time (Source) Location / / Volume Laterality Urine specimen 09/30/2015 9:22 AM 016 9:23 (specimen) CDT AM CDT Vanda Guerrero MD LAB - URINE ORDERABLES Performing Organization Address City/State/ZIP Code Phon e Number [facility] [address] [place] [address] [facility] [address] [place] [address], U [phone] Vitamin D Deficiency (09/30/2015 9:22 AM CDT) athologist Signature Vitamin D 36 20 - 75 [facility] Deficiency ug/L [facility] Comment: Season, race, dietary intake, and treatm ent affect the concentration of 81-xicwslc-Tqnzzhc D. Values may decrea se during winter [...] Performing Organization Address City/[facility]/ZIP [facility] Phon e Number [address] [place] [address] Vitamin B12 (09/30/2015 9:22 AM CDT) athologist Signature Vitamin B12 482 193 - 986 [facility] pg/mL [facility] Comment: Interp: [phone] = Normal Specimen Anatomical Collection Method Collection Time Receive d Time (Source) Location / / Volume Laterality Blood specimen 09/30/2015 9:22 AM 016 9:23 (specimen) CDT AM CDT Vanda Guerrero MD LAB - BLOOD ORDERABLES Performing Organization Address City/[facility]/ZIP Code Phon e Number [address] (ABNORMAL) TSH with free T4 reflex (09/30/2015 9:22 AM CDT) athologist Signature TSH 0.07 (L) 0.40 - [facility] 4.00 mU/L [facility] Specimen Anatomical Collection Method Collection Time Receive d Time (Source) Location / / Volume Laterality Blood specimen 09/30/2015 9:22 AM 016 9:23 (specimen) CDT AM CDT Vanda Guerrero MD LAB - BLOOD ORDERABLES Performing Organization Address City/[facility]/ZIP Code Phon e Number [facility] [address] [place] [address] (ABNORMAL) Comprehensive metabolic panel (09/30/2015 9:22 AM CDT) Patholo gist Method Time Signature Sodium 145 (H) 133 - 144 [place] mmol/L [facility] Potassium 4.0 3.4 - 5.3 [place] mmol/L [facility] Chloride 110 (H) 94 - 109 [place] mmol/L [facility] Carbon Dioxide 25 20 - 32 [place] mmol/L [facility] Anion Gap 10 3 - 14 [place] mmol/L [facility] Glucose 104 (H) 70 - 99 [place] mg/dL [facility] Urea Nitrogen 10 7 - 30 [place] mg/dL [facility] Creatinine 0.67 0.52 - [place] 1.04 [facility] mg/dL [facility] GFR Estimate >90 >60 [place] Non GFR Calc mL/min/1. CLINICS [address]2 [facility] GFR Estimate If >90 >60 [place] Black GFR Calc mL/min/1. CLIN ICS 7m2 [facility] Calcium 9.7 8.5 - [facility].1 CLINICS mg/dL [facility] Bilirubin Total 0.4 0.2 - 1.3 [place] mg/dL [facility] Albumin 3.6 3.4 - 5.0 [place] g/dL [facility] Protein Total 8.2 6.8 - 8.8 [place] g/dL [facility] Alkaline 148 40 - 150 [place] Phosphatase U/L [facility] ALT 47 0 - 50 [place] U/L [facility] AST 19 0 - 45 [place] U/L [facility] Specimen Anatomical Collection Method Collection Time Receive d Time (Source) Location / / Volume Laterality Blood specimen 09/30/2015 9:22 AM 016 9:23 (specimen) CDT AM CDT Vanda Guerrero MD LAB - BLOOD ORDERABLES Performing Organization Address City/State/ZIP Code Phon e Number [facility] [address] [place] [address] (ABNORMAL) Hemoglobin A1c (09/30/2015 9:22 AM CDT) P athologist Signature Hemoglobin A1C 6.2 (H) 4.3 - 6.0 [facility] Specimen Anatomical Collection Method Collection Time Receive d Time (Source) Location / / Volume Laterality Blood specimen 09/30/2015 9:22 AM 016 9:23 (specimen) CDT AM CDT Vanda Guerrero MD LAB - BLOOD ORDERABLES Performing Organization Address City/State/ZIP Code Phon e Number [facility] [address] [facility] [place] [address] documented in this encounter Visit Diagnoses Diagnosis Type 2 diabetes mellitus without complic ation (H) Chronic fatigue Other malaise and fatigue documented in this encounter Additional Health Concerns Assessment Noted Time PHQ-9 Depression Total Score: 13 07/09/2015 7:49 AM CS T documented as of this encounter Care Teams Retail Sales Associate Seasonal Relationship Specialty Start Date End Date Vanda Guerrero MD PCP - General Internal Medicine 04/08/15 01/08/19 [address] [facility] [place] [address] documented as of this encounter
--- OUTSIDE RECORDS SUMMARY | 2022-01-17 22:36 | XMS_ITS | Encounter Summary ---
:1965 Author Organization [facility] Address [address] [place] [address] Care Team Providers Name Role Phone Vanda Guerrero MD Primary Care Provider [phone] Encounter Details Date Type Department Care Team Description 10/03/2015 Orders Only [facility] Vanda Guerrero Abnormal finding on Pino Toribio MD thyroid function test [address] (Primary Dx) [place] [address] [facility] [phone] [place] [address] (Wo rk) Social History [...] often do you attend oriental orthodox or gnosticism Patient refused 08/08/2019 services? Do you belong to any clubs or organizations such as 08/08/2019 oriental orthodox groups, unions, fraternal or [...] - 4.00 [facility] mU/L [facility] Specimen Anatomical Collection Method Collection Time Receive d Time (Source) Location / / Volume Laterality Blood specimen 12/03/2015 8:50 AM 016 8:55 (specimen) CDT AM CDT Vanda Guerrero MD LAB - BLOOD ORDERABLES Performing Organization Address City/State/ZIP Code Phon e Number [facility] [address] [place] [address] documented in this encounter Visit Diagnoses Diagnosis Abnormal finding on thyroid function shirley t - Primary Nonspecific abnormal results of thyroid function study documented in this encounter Additional Health Concerns Assessment Noted Time PHQ-9 Depression Total Score: 13 07/09/2015 7:49 AM CS T documented as of this encounter Care Teams Brim Raiser Relationship Specialty Start Date End Date Vanda Guerrero MD PCP - General Internal Medicine 04/08/15 01/08/19 [address] [facility] [place] [address] documented as of this encounter
--- OUTSIDE RECORDS SUMMARY | 2022-01-17 22:36 | XMS_ITS | Encounter Summary ---
:1965 Author Organization [facility] Address [address] [place] [address] Care Team Providers Name Role Phone Vanda Guerrero MD Primary Care Provider Reason for Visit Reason Comments Musculoskeletal Problem both, left foot worse. Encounter Details Date Type Department Care Team Description 04/04/2016 Office Visit [facility] Agatha Null, Pain in both feet (Primary Dx); Clinic Alvarado DPM, Podiatry/Foot Peroneal tendinitis of left lower extremity; [address] [facility] Peroneal tendinitis of right lower extre mity; [place] [address] Seda capellan vus, congenital; [address] [address] [address] Venous insufficiency of both lower extre mities; [phone] [place], [place] Fibromyalgia; [address] Type 2 diabetes mellitus without complic ation, without long-term current use of insulin (H); [phone] Non morbid obes ity, unspecified obesity type [...] often do you attend latter day or shinto Patient refused 08/08/2019 services? Do you belong to any clubs or organizations such as No 08/08/2019 latter day groups, [employer], [employer]Mid[employer] or athletic groups, or school groups? How [...] be found at these clinics: Sunday AM [facility] [address] [place] [address] Sunday PM Surgery Sunday All Day [facility] [address] [place], [place] [id number] Sunday [facility] [address] [place] [address] All Day surgery Sunday AM [facility] [address], [address] [place], [place] [address] Sunday PM [facility] [address] [facility], [address] [place] [address] TO SCHEDULE SURGERY, call Yecenia at [phone]. To Schedule appointments call: [phone] General (after hours): Patient [phone] DIABETES AND YOUR FEET What effect does [...] How can these problems be prevented? The am to prevention is good blood sugar control. [...] 2000 IU daily), Alpha-Lipoic Acid (600-1800mg daily), Zmsddc-J-Bruutxifl (500-1000mg TID, L-methyl folate (1500mcgdaily) Metformin can [...] of you. Do 2 sets of 10. supervisor throwing department the same position as above. While keeping [...] ??? 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 Smoking [...] Relation Age of Onset ??? Cardiovascular Mother [place] age 72 ??? Cardiovascular Father [place] early 40s, subsequent bipass ??? DIABETES Mother [...] obesity type PLAN: Reviewed patient's chart in [facility]. Reviewed proper diabetic foot care. Reviewed and [...] as of this encounter Care Teams Industrial Methods Consultant Relationship Specialty Start Date End Date Vanda Guerrero MD PCP - General Internal Medicine 04/08/15 01/08/19 [address] [facility] [place] [address] documented as of this encounter
--- OUTSIDE RECORDS SUMMARY | 2022-01-17 22:36 | XMS_ITS | Encounter Summary ---
:1965 Author Organization [facility] Address [address] [place] [address] Care Team Providers Name Role Phone Vanda Guerrero MD Primary Care Provider [phone] Reason for Visit Reason Comments Menopausal Sx Encounter Details Date Type Department Care Team Description 09/29/2015 Office Visit [facility] Vanda Guerrero Left-ant ed low back pain with left-sided sciatica (Primary Dx); Pino Toribio MD Breast pain, left; [address] [place] [address] Type 2 diabetes mellitus wit hout complication (H); [place] [address] [facility] Major depressive disorder, recurrent epi sode, moderate (H); [phone] [place] [address] Hypertension goal BP (blood pressure) < 130/80; [phone] Hyperlipidemia LDL goal <100; (Work) History of [...] How often do you attend alevism or muslim Patient refused 08/08/2019 services? Do [...] three times daily if you can Call [phone] to set up a special mammogram and [...] Two temporarily, and 2 permanently. Provides primary assistant child care teacher for grandchildren. One year old is [...] three times daily if you can Call [phone] to set up a special mammogram and ultrasound to investigate your breast pain Please come back in about 6 weeks to review everything - in the meantime, you can try Replens or Rephresh (available OTC) I'm happy to send you to physical therapy or back to the surgeons anytime - let me know [facility] MD [facility] documented in this encounter Nursing Notes Jacquelyn [...] CDT) athologist Signature Cholesterol 152 <200 mg/dL [facility] Triglycerides 109 <150 mg/dL [facility] Comment: Fasting specimen HDL Cholesterol 51 >49 mg/dL [place] [facility] CS [facility] LDL Cholesterol Calculated 79 <100 mg/dL [facility] Comment: Desirable: <100 mg/dl Non HDL Cholesterol 101 <130 mg/dL [facility] Specimen Anatomical Collection Method Collection Time Receive d Time (Source) Location / / Volume Laterality Blood specimen 12/03/2015 8:50 AM 016 8:55 (specimen) CDT AM CDT Vanda Guerrero MD LAB - BLOOD ORDERABLES Performing Organization Address City/State/ZIP Code Phon e Number [facility] [address] [place] [address] [place] [address] Microalbumin quantitative random urine (09/30/2015 9:22 AM CDT) athologist Signature Creatinine 174 mg/dL [place] Urine [facility] Albumin Urine 10 mg/L [place] mg/L [facility] Albumin Urine 5.67 0 - 25 [place] mg/g Cr mg/g Cr [facility] Specimen Anatomical Collection Method Collection Time Receive d Time (Source) Location / / Volume Laterality Urine specimen 09/30/2015 9:22 AM 016 9:23 (specimen) CDT AM CDT Vanda Guerrero MD LAB - URINE ORDERABLES Performing Organization Address City/State/ZIP Code Phon e Number [facility] [address] [place] [address] [phone] [facility] [address] [place] [address], U [phone] Vitamin D Deficiency (09/30/2015 9:22 AM CDT) athologist Signature Vitamin D 36 20 - 75 [facility] Deficiency ug/L [facility] Comment: Season, race, dietary intake, and treatm ent affect the concentration of 27-vubgvsb-Agjsbth D. Values may decrea se during winter [...] Organization Address City/State/ZIP Code Phon e Number [address] Vitamin B12 (09/30/2015 9:22 AM CDT) [...] Phon e Number [facility] [address] (ABNORMAL) TSH with free T4 reflex (09/30/2015 9:22 AM CDT) P athologist Signature TSH 0.07 (L) 0.40 - [facility] 4.00 mU/L [facility] Specimen Anatomical Collection Method Collection Time Receive d Time (Source) Location / / Volume Laterality Blood specimen 09/30/2015 9:22 AM 016 9:23 (specimen) CDT AM CDT Vanda Guerrero MD LAB - BLOOD ORDERABLES Performing Organization Address City/State/ZIP Code Phon e Number [facility] [address] [place] [address] (ABNORMAL) Comprehensive metabolic panel (09/30/2015 9:22 AM CDT) [facility] gist Method Time Signature Sodium 145 (H) 133 - 144 [place] mmol/L [facility] Potassium 4.0 3.4 - 5.3 [place] mmol/L [facility] Chloride 110 (H) 94 - 109 [place] mmol/L [facility] Carbon Dioxide 25 20 - 32 [place] mmol/L [facility] Anion Gap 10 3 - 14 [place] mmol/L [facility] Glucose 104 (H) 70 - 99 [place] mg/dL [facility] Urea Nitrogen 10 7 - 30 [place] mg/dL [facility] Creatinine 0.67 0.52 - [place] 1.04 [facility] mg/dL [facility] GFR Estimate >90 >60 [place] Non GFR Calc mL/min/1. CLINICS 7m2 [facility] GFR Estimate If >90 >60 [place] Black GFR Calc mL/min/1. CLIN ICS 7m2 [facility] Calcium 9.7 8.5 - [facility] 10.1 [facility] mg/dL [facility] Bilirubin Total 0.4 0.2 - 1.3 [place] mg/dL [facility] Albumin 3.6 3.4 - 5.0 [place] g/dL [facility] Protein Total 8.2 6.8 - 8.8 [place] g/dL [facility] Alkaline 148 40 - 150 [place] Phosphatase U/L [facility] ALT 47 0 - 50 [place] U/L [facility] AST 19 0 - 45 [place] U/L [facility] Specimen Anatomical Collection Method Collection Time Receive d Time (Source) Location / / Volume Laterality Blood specimen 09/30/2015 9:22 AM 016 9:23 (specimen) CDT AM CDT Vanda Guerrero MD LAB - BLOOD ORDERABLES Performing Organization Address City/State/ZIP Code Phon e Number [facility] [address] [place] [address] (ABNORMAL) Hemoglobin A1c (09/30/2015 9:22 AM CDT) P athologist Signature Hemoglobin A1C 6.2 (H) 4.3 - 6.0 [facility] Specimen Anatomical Collection Method Collection Time Receive d Time (Source) Location / / Volume Laterality Blood specimen 09/30/2015 9:22 AM 016 9:23 (specimen) CDT AM CDT Vanda Guerrero MD LAB - BLOOD ORDERABLES Performing Organization Address City/State/ZIP Code Phon e Number [facility] [place] [address] [facility] [place] [address] documented in this encounter Visit Diagnoses Diagnosis [...] Puncher Relationship Specialty Start Date End Date Vanda Guerrero MD PCP - General Internal Medicine 04/08/15 01/08/19 68[address] [facility] [place] [address] documented as of this encounter
--- OUTSIDE RECORDS SUMMARY | 2022-01-17 22:36 | XMS_ITS | Encounter Summary ---
:1965 Author Organization [place] Address [address] [place] [address] Care Team Providers Name Role Phone Vanda Guerrero MD Primary Care Provider [phone] Reason for Visit Reason Onset Date Comments Refill Request 09/10/2015 METFORMIN HCL 500MG Encounter Details Date Type Department Care Team Description 09/10/2015 Refill [facility] Vanda Lal, Refill Request 1440 Priscilla Bass MD (METFORMIN HCL 500MG) [place] [phone] 7[address] [facility] [phone] [facility] [place] [address] (Wo rk) [...] How often do you attend muslim or taoist Patient refused 08/08/2019 services? Do [...] PM CDT Prescription refilled x [address] [facility] Refill Protocol. Has follow up scheduled. Telephone Encounter - Eri Middleton - 09/10/2015 11:17 AM CDT METFORMIN HCL 500MG Last Written Prescription Date: 06/10/2015 Last Fill Quantity: 180, # refills: 0 Last Office Visit with [facility], P or [facility] prescribing provider: 07/08/2015 Next 5 appointments (look out 90 days) Sep 29, 2015 9:40 AM MyChart Carlos with Vanda Guerrero MD [facility] [place] ([facility]) [address] [facility] [place] [address] MICROL <5 08/10/2014 MICROALBUMIN [...] documented as of this encounter Care Teams Automotive Glass Technician Relationship Specialty Start Date End Date Vanda Guerrero MD PCP - General Internal Medicine 04/08/15 01/08/[address] [place] [address] [place] [address] documented as of this encounter
--- OUTSIDE RECORDS SUMMARY | 2022-01-17 22:36 | XMS_ITS | Encounter Summary ---
:1965 Author Organization [place] Address [address] [place] [address] Care Team Providers Name Role Phone Vanda Guerrero MD Primary Care Provider [phone] Reason for Visit (Routine) - Closed Specialty Diagnoses / Procedures Referred By Contact Refer red To Contact Radiology / Radiology. Diagnoses [facility] Procedures [place] DIAGNOSTIC DIGITAL BILAT [address], [address] [place] [address] Phone: Fax: Referral ID Status Reason Start Date Expiration Date Visits Requ ested Visits Authorized [id number] Closed 09/29/2015 09/28/2016 1 1 Encounter Details Date Type Department Care Team Description 09/30/2015 Hospital Encounter [facility] Vanda Guerrero reast pain, left [facility] MD [place] [address] [place] [address] [address], [address] [place] [address] [place], [place] [phone] [address] (Work) [phone] Social History Tobacco Use Types Packs/Day Years [...] How often do you attend anglican or yarsanism Patient refused 08/08/2019 services? Do you belong to any clubs or organizations such as No 08/08/2019 anglican groups, [employer], fraNomanini or athletic groups, or school groups? How [...] 2 Fibromyalgia times daily fluticasone (FLONASE) 50 [place] 1-2 sprays 3 Package 3 10/0605/03/2016 MCG/ACT [...] documented as of this encounter Care Teams Police Patrol Lieutenant Relationship Specialty Start Date End Date Vanda Guerrero MD PCP - General Internal Medicine 04/08/15 01/08/[address] [facility] [place] [address] documented as of this encounter
--- OUTSIDE RECORDS SUMMARY | 2022-01-17 22:36 | XMS_ITS | Encounter Summary ---
:1965 Author Organization [facility] Address [address] [place] [address] Care Team Providers Name Role Phone Vanda Guerrero MD Primary Care Provider [phone] Reason for Visit Reason Comments Diabetes Lipids Recheck Medication Encounter Details Date Type Department Care Team Description 12/22/2015 Office Visit [facility] Vanda Guerrero Type 2 d iabetes mellitus without complication (H) (Primary Dx); Pino Toribio MD Recurrent major depressive disorder, rem ission status unspecified (H); [address] [facility] Hyperlipidemia LDL goal <100 ; [place] [address] [facility] Fibromyalgia; [phone] [place] [address] Symptomatic menopausal or female climact [place] states; [phone] Anxiety; (Work) History of lumbar fusion; Colon [...] How often do you attend pentecostal or protestant Patient refused 08/08/2019 services? Do [...] Guerrero MD - 12/22/2015 9:31 AM CDT supervisor powder and primer canning your FIT test for colon cancer at [...] Unit: TSI index (Note) Test Performed by: [facility] - [address] [address] Cryptanalyst: Huseyin Dash II, M.D., Ph.D. ASSESSMENT/PLAN: ICD-10-CM [...] neuropathy Z13.89 Normal foot exam Patient Instructions supervisor powder and primer canning your FIT test for colon cancer at [...] current medications for now Vanda Guerrero MD [facility] documented in this encounter Nursing Notes Lori [...] Occult Blood Negative NEG [facility] FIT [facility] Specimen Anatomical Collection Method Collection Time Receive d Time (Source) Location / / Volume Laterality Stool specimen 01/07/2016 11:41 6 (specimen) AM CDT 11:42 AM CDT Vanda Guerrero MD LAB - STOOLS ORDERABLES Performing Organization Address City/State/ZIP Code Phon e Number [facility] [address] [place], [place] [phone] [place] [address] documented in this encounter Visit Diagnoses Diagnosis [...] documented as of this encounter Care Teams Cradle Slide Maker Relationship Specialty Start Date End Date Vanda Guerrero MD PCP - General Internal Medicine 04/08/15 01/08/19 [address] [facility] [place] [address] documented as of this encounter
--- OUTSIDE RECORDS SUMMARY | 2022-01-17 22:36 | XMS_ITS | Encounter Summary ---
:1965 Author Organization [place] Address [address] [place] [address] Care Team Providers Name Role Phone Vanda Guerrero MD Primary Care Provider [phone] Reason for Visit Reason Onset Date Comments Refill Request 02/09/2016 SIMVASTATIN 20MG Refill Request 02/09/2016 CITALOPRAM 20MG Encounter Details Date Type Department Care Team Description 02/09/2016 Refill [facility] Vanda Lal, Refill Request 1440 Priscilla Bass MD (SIMVASTATIN 20MG); [place] [phone] 3[address] [facility] Refill Request [phone] NASIR ANDRE (CITALOPRAM 20MG) [place] [id number] [...] How often do you attend islam or yazidi Patient refused 08/08/2019 services? Do [...] 2:20 PM CDT Simvastatin Prescription approved per [facility] Refill Protocol. Celexa Medication is being filled for 1 time refill only due to: pt needs updated PHQ9-ok to wait until upcoming appt 03/23/16? Kassie Roberts, RN Telephone Encounter - Marisa Matthew - 02/10/2016 3:35 PM CDT CITALOPRAM 20MG Last Written Prescription Date: 11/09/2015 Last Fill Quantity: 90, # refills: 0 Last Office Visit with [facility] primary care provider: 12/22/2015 Next 5 appointments (look out 90 days) Mar 23, 2016 10:20 AM Office Visit with Vanda Guerrero MD [facility] ([facility]) [address] [place] [phone] Last PHQ-9 score on record= PHQ-9 SCORE 12/22/2015 Total Score - Total Score MyChart - Total Score 10 Telephone Encounter - Marisa Matthew - 02/09/2016 7:45 AM CDT SIMVASTATIN 20MG Last Written Prescription Date: 11/09/2015 Last Fill Quantity: 90, # refills: 0 Last Office Visit with [facility], [facility] prescribing provider: 12/22/2015 Next 5 appointments (look out 90 days) Mar 23, 2016 10:20 AM Office Visit with Vanda Guerrero MD [facility] ([facility]) [address] [place] [phone] CHOL 152 12/03/2015 HDL 51 12/03/2015 [...] as of this encounter Care Teams Facilities Engineer Relationship Specialty Start Date End Date Vanda Guerrero MD PCP - General Internal Medicine 04/08/15 01/08/19 [address] [facility] [address] [place], [place] [address] documented as of this encounter
--- OUTSIDE RECORDS SUMMARY | 2022-01-17 22:37 | XMS_ITS | Encounter Summary ---
:1965 Author Organization [place] Address [facility] [place] [address] Care Team Providers Name Role Phone Selma Good APRN TEST INSPECTION ENGINEER Primary Care Provider Reason for Referral Consultation - Closed Specialty Diagnoses / Procedures Referred By Contact Refer red To Contact Diagnoses Lumbar radiculopathy Cervicalgia History of lumbar fusion History of fusion of cervical spine Chronic left SI joint pain Vanda Guerrero MD [facility] [address] [place] [address] CL-SH- REFERRAL (OP) [address] [place] [id number] [id number] [place] [phone] Phone: [phone] Fax: Referral ID Status Reason Start Date Expiration Date Visits Requ ested Visits Authorized [id number] Closed 12/09/2014 12/09/2015 1 1 Reason for Visit Reason Comments Musculoskeletal Problem left leg pain , neck pain Encounter Details Date Type Department Care Team Description 12/09/2014 Office Visit [facility] Vanda Guerrero Lumbar r adiculopathy (Primary Dx); Pino Toribio MD Cervicalgia; [address] [place] [address] [place] [address] History of lumbar fusion; [place] [phone] [facility] History of fusion of cervical spine; [phone] [place] [address] Chronic left SI joint pain [phone] (Wo rk) Social History Tobacco Use Types [...] How often do you attend hindu or jehovah's witness Patient refused 08/08/2019 services? [...] visit with our medical spine specialists in [place] documented in this encounter Progress Notes Vanda Guerrero MD - 12/09/2014 7:37 AM CDT SUBJECTIVE: Megan Choi is a 49 year [...] list, Allergies, and Medical/Social/Surgical histories reviewed in [facility] andupdated as appropriate. OBJECTIVE: BP 106/70 [...] ASSESSMENT/PLAN: ICD-9-CM 1. Lumbar radiculopathy 724.4 ORTHO TOOL STORAGE ATTENDANT REFERRAL 2. Cervicalgia 723.1 ORTHO TOOL STORAGE ATTENDANT REFERRAL 3. History of lumbar fusion V45.89 ORTHO TOOL STORAGE ATTENDANT REFERRAL 4. History of fusion of cervical spine V45.4 ORTHO TOOL STORAGE ATTENDANT REFERRAL 5. Chronic left SI joint pain 724.6 ORTHO TOOL STORAGE ATTENDANT REFERRAL 338.29 Recommended a consultation with special forces specialist as patient has had complicated spine [...] of the above issues. Vanda Guerrero MD [facility] documented in this encounter Nursing Notes [...] sacrum documented in this encounter Care Teams Fraud Representative Relationship Specialty Start Date End Date Selma Good, SEAN TEST INSPECTION ENGINEER PCP - General 04/09/08 04/07/15 [address] [facility] [place] [address] documented as of this encounter
--- OUTSIDE RECORDS SUMMARY | 2022-01-17 22:37 | XMS_ITS | Encounter Summary ---
:1965 Author Organization [place] Address [address] [place] [address] Care Team Providers Name Role Phone Selma Good APRN MULE OPERATOR Primary Care Provider [phone] Reason for Visit Reason Onset Date Comments Patient/info Update 02/02/2015 Post FABIAN Encounter Details Date Type Department Care Team Description 02/02/2015 Telephone [facility] Pain Teagan Solares, Patient/info Update Management Center DO (Post FABIAN) [address] [place] [address] PA[address] [place] [address] [facility] [place], [place] [address] [address] [address] [place] [address] [phone] Social History Tobacco Use Types Packs/Day Years [...] How often do you attend rastafarian or catholic Patient refused 08/08/2019 services? Do [...] pt should call the nurse line at [phone]. Lashae Stack(R) documented in this encounter Plan of Treatment Not on filedocumented as of this encounter Visit Diagnoses Not on filedocumented in this encounter Care Teams Security Police Officer Relationship Specialty Start Date End Date Selma Good APRN MULE OPERATOR PCP - General 04/09/08 04/07/15 [address] [facility] [place] [address] documented as of this encounter
--- OUTSIDE RECORDS SUMMARY | 2022-01-17 22:37 | XMS_ITS | Encounter Summary ---
:1965 Author Organization [place] Address [address] [place] [address] Care Team Providers Name Role Phone Selma Good APRN, CNP Primary Care Provider [phone] Reason for Visit Reason Onset Date Comments Refill Request 09/20/2014 METFORMIN HCL 1000 M G Encounter Details Date Type Department Care Team Description 09/20/2014 Refill [facility] Eag Selma Anthony Refill Request 1440 Heysan SEAN Angeles CNP (METFORMIN HCL 1000 MG) [place] [phone] [facility] [phone] [facility] [place] [address] (Wo rk) [...] How often do you attend voodoo or restorationism Patient refused 08/08/2019 services? Do [...] uncontrolled documented in this encounter Care Teams Group Burner Machine Relationship Specialty Start Date End Date Danilo-Selma Mccoy, BROKE WORKER DOOR MACHINE OPERATOR PCP - General 04/09/08 04/07/15 [address] [facility] [place] [address] documented as of this encounter
--- OUTSIDE RECORDS SUMMARY | 2022-01-17 22:37 | XMS_ITS | Encounter Summary ---
:1965 Author Organization [place] Address [address] [place] [address] Care Team Providers Name Role Phone Selma Good APRN, CNP Primary Care Provider [phone] Reason for Visit Reason Onset Date Comments Refill Request 08/24/2014 OMEPRAZOLE 20MG Encounter Details Date Type Department Care Team Description 08/24/2014 Refill [facility] Eag Selma Anthony Refill Request 1440 Familybuilder SEAN Angeles CNP (OMEPRAZOLE 20MG) [place] [phone] [facility]9 [facility] [phone] [facility] [place] [address] (Wo rk) Social History [...] How often do you attend religion or jew Patient refused 08/08/2019 services? Do [...] reflux documented in this encounter Care Teams Flaker Tender Relationship Specialty Start Date End Date Danilo-Selma Mccoy, FIELD ASSEMBLY SUPERVISOR CAR CLEANER PCP - General 04/09/08 04/07/[address] [facility] [address] [place], [place] [address] documented as of this encounter
--- OUTSIDE RECORDS SUMMARY | 2022-01-17 22:37 | XMS_ITS | Encounter Summary ---
:1965 Author Organization [place] Address [facility] [place] [address] Care Team Providers Name Role Phone Selma Good APRN HUMAN INTELLIGENCE Primary Care Provider [phone] Reason for Visit (Routine) - Closed Specialty Diagnoses / Procedures Referred By Contact Refer red To Contact Radiology / Radiology. Diagnoses R#NA, BC, written order Sh Ct Scan Procedures CT CERVICAL SPINE WO [address] [place] [phone] Phone: Referral ID Status Reason Start Date Expiration Date Visits Requ ested Visits Authorized [id number] Closed 01/01/2015 01/01/2016 1 1 Encounter Details Date Type Department Care Team Description 01/08/2015 Hospital Encounter [facility] atus post cervical [facility] SEAN Angeles HUMAN INTELLIGENCE spinal fusion [address] [place] [phone] ORTHOPEDICS [phone] [place], [place] [address] Social History Tobacco Use Types Packs/Day Years [...] How often do you attend judaism or samaritan Patient refused 08/08/2019 services? Do you belong to any clubs or organizations such as No 08/08/2019 judaism groups, [employer], fraDreamise or athletic groups, or school groups? How [...] 2 times capsuleIndications: daily Fibromyalgia fluticasone (FLONASE) [place] 1-2 sprays into 3 Package 3 05/03/2016 [...] Spine, SUBRAD CT NEURO, SUBRAD CT NEURO, [facility] CT SPINE Computed Tomography Specimen (Source) [...] C3-C4. MARY SWAN MD Rosalia Main APRN HUMAN INTELLIGENCE IMG CT ORDERABLES documented in this encounter Visit Diagnoses Diagnosis Status post cervical spinal fusion Arthrodesis status documented in this encounter Care Teams Assistant Manager/Embalmer Relationship Specialty Start Date End Date Selma Good APRN CNP PCP - General 04/09/08 04/07/15 [address] [facility] [address] [place], [place] [address] documented as of this encounter
--- OUTSIDE RECORDS SUMMARY | 2022-01-17 22:37 | XMS_ITS | Encounter Summary ---
:1965 Author Organization [place] Address [address] [place] [address] Care Team Providers Name Role Phone Selma Good APRN LINE ASSEMBLER Primary Care Provider [phone] Encounter Details Date Type Department Care Team Description 01/26/2015 Radiant Appointment [facility] Teagan Solares DDD (degenerative Clinic [facility] disc disease), Pain Management [facility] cervical [address] [place] [address] [facility] [address] [place] [address] [place], [place] [phone] [address] (Work) [phone] Social History Tobacco Use Types Packs/Day Years [...] How often do you attend anglican or zoroastrianism Patient refused 08/08/2019 services? Do [...] be read by a radiologist or a [place] non-radiologis t provider. Procedure Note Lashae Alexis - 01/26/2015Formatt ing of this note might be different from the original. This exam was marked as non-reportable b ecause it will not be read by a radiologist or a [place] non-radiologist provider. Teagan Solares DO [facility]NOST[facility] [...] dose documented in this encounter Care Teams Drug Worker Relationship Specialty Start Date End Date Danilo-Selma Mccoy, TOLL GATE TENDER LINE ASSEMBLER PCP - General 04/09/08 04/07/15 [address] [facility] [address] [place], [place] [address] documented as of this encounter
--- OUTSIDE RECORDS SUMMARY | 2022-01-17 22:37 | XMS_ITS | Encounter Summary ---
:1965 Author Organization [place] Address [address] [place] [address] Care Team Providers Name Role Phone Selma Good APRN FUNERAL DIRECTOR Primary Care Provider [phone] Reason for Visit Reason Onset Date Comments Refill Request 09/21/2014 SIMVASTATIN 20MG Encounter Details Date Type Department Care Team Description 09/21/2014 Refill [facility] Eag Selma Anthony Refill Request 1440 [employer] Computer SEAN Angeles CNP (SIMVASTATIN 20MG) [place] [phone] 5[address] [facility] [phone] [facility] [place] [address] (Wo rk) Social [...] How often do you attend moravian or mandaen Patient refused 08/08/2019 services? Do [...] Calculated 0 - 129 mg/dL 76 [place] sales representative printing paper Nurse Telephone Encounter - Marisa Matthew - [...] hyperlipidemia documented in this encounter Care Teams Strip Cutter Relationship Specialty Start Date End Date Danilo-Selma Mccoy, LAPELER FUNERAL DIRECTOR PCP - General 04/09/08 04/07/15 [address] [facility] [place] [address] documented as of this encounter
--- OUTSIDE RECORDS SUMMARY | 2022-01-17 22:37 | XMS_ITS | Encounter Summary ---
:1965 Author Organization [place] Address [address] [facility] [place] [address] Care Team Providers Name Role Phone Selma Good APRN METAL CEILING HANGER Primary Care Provider [phone] Reason for Visit Reason Onset Date Comments Procedure 01/08/2015 Encounter Details Date Type Department Care Team Description 01/08/2015 Telephone [facility] Pain Pain Management Pr nela, Procedure Management Center [facility] [address] [place], [place] [phone] Social History Tobacco Use [...] How often do you attend zoroastrian or holiness Patient refused 08/08/2019 services? Do [...] or notify pt of denial. Is an freelance interpreter/translator needed? No Patient has a drive home? [...] ?? If so, was it done at [facility]? Yes ?? If not, where was it done? Was the MRI done w/in the last 3 years? Yes If MRI was not done at [facility], [facility] do NOT schedule. Route to [...] the patient have any questions? Halie Siddiqui [facility] Telephone Encounter - Veronica Porter RN - 01/08/2015 3:46 PM CDT Routing to front of house manager to schedule patient for LESI vs other lumbar procedure TBD by pain specialist.Please include in the visit note that order is for lumbar injection first, then cervical, and that patient has history of spine surgery. Veronica Porter [facility] Telephone Encounter - Yvonne Cedillo - 01/08/2015 2:02 PM CDT Procedure or injection only (pt will be contacted within 24 hrs to schedule): Lumbar injections thencervical. Please advise on scheduling. Yvonne Cedillo [employer] Police Sergeant [facility] documented in this encounter Plan of Treatment Not on filedocumented as of this encounter Visit Diagnoses Not on filedocumented in this encounter Care Teams Cabinet Installer Relationship Specialty Start Date End Date Danilo-Selma Mccoy, SEAN METAL CEILING HANGER PCP - General 04/09/08 04/07/15 [address] [facility] [place] [address] documented as of this encounter
--- OUTSIDE RECORDS SUMMARY | 2022-01-17 22:37 | XMS_ITS | Encounter Summary ---
:1965 Author Organization [place] Address [address] [place] [address] Care Team Providers Name Role Phone Selma Good APRN PROTOZOOLOGY TEACHER Primary Care Provider [phone] Reason for Visit Reason Comments Neurologic Problem Neck/low back pain Encounter Details Date Type Department Care Team Description 12/29/2014 Office Visit [facility] Rosalia Main Status p ost lumbar spinal fusion (Primary Dx); Neurosurgery Clinic SEAN Angeles CN P Status post cervical spinal fusion [facility] ORTHOPEDICS [address] [place] [address] [address] [place] [address] [address] [place], [place] [address] [phone] Social History Tobacco Use Types Packs/Day Years [...] How often do you attend voodoo or adventist Patient refused 08/08/2019 services? Do [...] documented in this encounter Progress Notes Rosalia Mian APRN CNP - 12/29/2014 10:[address] Raoul Danielson [facility] Neurosurgery Clinic Visit The following is a window installer of a shared visit between Dr. Raoul [...] NOT PRESCRIBED, INTENTIONAL, ??? blood glucose (ACCU-CHEK AJNICE) test strip ??? ASPIRIN PO No current facility-administered medications for this visit. Allergies Allergen Reactions ??? Erythromycin History Social History ??? Marital Status: Spouse Name: N/A Number of Children: N/A ??? 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 Smoking status: Never Smoker ??? Smokeless tobacco: Never Used ??? Alcohol Use: Yes Comment: Rare ??? Drug Use: No ??? Sexual Activity: Partners: Male Control/ Protection: Surgical Comment: Tubal Other Topics Concern ??? Parent/Sibling W/ Cabg, Mi Or Angioplasty Before 65f 55m? No Social History Narrative Family History Problem Relation Age of Onset ??? Cardiovascular Mother CT age 72 ??? Cardiovascular Father CT early 40s, subsequent bipass ??? Diabetes Mother [...] Rosalia Main CNP [facility] [place] [address] Pager [phone] Anna Mayberry - 12/29/2014 10:29 AM CDT [...] at C3-C4. RUPERTO SWAN MD Rosalia Main BROADCAST CORRESPONDENT PROTOZOOLOGY TEACHER IMG CT ORDERABLES CT Lumbar Spine w/o Contrast (01/08/2015 12:36 PM CDT) Anatomical Region Laterality Modality Spine, SUBRAD CT MSK, [facility] CT SPINE Compu jayne Tomography Specimen [...] sacroiliac joint. ABRAHAM BAEZ MD Rosalia Main BROADCAST CORRESPONDENT PROTOZOOLOGY TEACHER IMG CT ORDERABLES documented in this encounter Visit Diagnoses Diagnosis Status post lumbar spinal fusion - Prima ry Arthrodesis status Status post cervical spinal fusion Arthrodesis status Status post lumbar spinal fusion Arthrodesis status Status post cervical spinal fusion Arthrodesis status documented in this encounter Care Teams Loading Shovel Oiler Relationship Specialty Start Date End Date Danilo-Selma Mccoy APRN PROTOZOOLOGY TEACHER PCP - General 04/09/08 04/07/15 [address] [facility] [place] [address] documented as of this encounter
--- OUTSIDE RECORDS SUMMARY | 2022-01-17 22:37 | XMS_ITS | Encounter Summary ---
:1965 Author Organization [place] Address [address] [place] [address] Care Team Providers Name Role Phone Selma Good APRN COMPLEX MANAGER Primary Care Provider [phone] Reason for Visit Reason Comments Pain caudal TRACE Encounter Details Date Type Department Care Team Description 01/12/2015 Radiology [facility] Teagan Solares Lumbosacra l spondylosis without myelopathy (Primary Dx); Injection Office Pain Management DO Noreen Lumbar radiculopathy Visit [address] [facility] [address] [place] [address] [place], [place] [phone] [address] (Work) [phone] Social History Tobacco Use Types Packs/Day Years [...] How often do you attend amish or gnosticist Patient refused 08/08/2019 services? Do [...] Santana RN - 01/12/2015 8:40 AM CDT [facility] Procedure Discharge Instructions Nurse line: [phone] Appt line: [phone] Teagan Solares You had [...] center nursing line during work hours at [phone] or concrete engineering technician physician after hours at [phone]: -Fever over 100 degree F -Swelling, bleeding, redness, drainage, warmth at the injection site -Progressive weakness or numbness on your legs or arms -Loss of bowel or bladder function -Unusual headache that is not relieved by Tylenol -Unusual new onset of pain that is not improving documented in this encounter Progress Notes Teagan Solares DO - 01/12/2015 9:20 AM CDT [facility] - Procedure Note Date of Service: 01/12/15 Procedure performed: caudal epidural steroid injection with fluoroscopic guidance Diagnosis: Lumbar spondylosis; Lumbar radiculitis/radiculopathy Machine Shop Lead Man: Teagan Solares DO Anesthesia: none Indications: Megan [...] the patient was advised to contact the [facility] for any of the [...] and for post-procedure evaluation. Teagan Solares DO [facility] documented in this encounter Nursing Notes Shala [...] patient home? Yes Signature/Title: SHALA SANTANA RN Program Facilitator [facility] [place] Shala Santana RN - 01/12/2015 8:27 AM [...] active infection? NO Does patient have a commercial collections driver? 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 Not Applicable Are the vital signs normal? Yes ANDREW Mack, RN-BC Program Facilitator [facility] [place] documented in this encounter Plan of Treatment Not on filedocumented as of this encounter Visit Diagnoses Diagnosis Lumbosacral spondylosis without myelopat hy - Primary Lumbar radiculopathy Thoracic or lumbosacral neuritis or radi culitis, unspecified documented in this encounter Care Teams Informatics Specialist Relationship Specialty Start Date End Date Danilo-Selma Mccoy APRN COMPLEX MANAGER PCP - General 04/09/08 04/07/15 [address] [facility] [place] [address] documented as of this encounter
--- OUTSIDE RECORDS SUMMARY | 2022-01-17 22:37 | XMS_ITS | Encounter Summary ---
:1965 Author Organization [place] Address [address] [place] [address] Care Team Providers Name Role Phone Selma Good APRN, CNP Primary Care Provider [phone] Reason for Visit Reason Onset Date Comments Refill Request 09/22/2014 TOPIRAMATE 50MG Encounter Details Date Type Department Care Team Description 09/22/2014 Refill [facility] Selma Hodges Refill Request 1440 [facility] SEAN Angeles CNP (TOPIRAMATE 50MG) [place] [phone] [place] [address] [facility] [place] [phone] (Wo rk) Social History Tobacco Use Types [...] How often do you attend mormon or islam Patient refused 08/08/2019 services? Do [...] informed. Abigail Burciaga RN Telephone Encounter - NannettedainelMarisa - 09/22/2014 1:38 PM CDT Refill request [...] migrainosus documented in this encounter Care Teams Printer Slotter Helper Relationship Specialty Start Date End Date Danilo-Selma Mccoy, VENDING MANAGER PLASTIC AND RECONSTRUCTIVE SURGEON PCP - General 04/09/08 04/07/[address] [facility] [address] [place], [place] [address] documented as of this encounter
--- OUTSIDE RECORDS SUMMARY | 2022-01-17 22:37 | XMS_ITS | Encounter Summary ---
:1965 Author Organization [facility] Address [address] [place] [address] Care Team Providers Name Role Phone Selma Good APRN HEM INSPECTOR Primary Care Provider [phone] Reason for Visit Reason Onset Date Comments Procedure 01/13/2015 FABIAN Encounter Details Date Type Department Care Team Description 01/13/2015 Telephone [facility] Pain Pain Management Pr ocedure (FABIAN) Management [facility], [facility] [address] [place] [address] [address] [place] [address] Social History Tobacco Use Types [...] How often do you attend restorationism or denominational Patient refused 08/08/2019 services? Do [...] be done at which interventional clinic site? [facility] Procedure ordered by Dr. AGRAWAL Procedure ordered? [...] or notify pt of denial. Is an associate genetics professor needed? No Patient has a drive home? [...] ?? If so, was it done at [facility]? Yes ?? If not, where was it done? Was the MRI done w/in the last 3 years? Yes If MRI was not done at [facility], [facility] do NOT schedule. Route to [...] the patient have any questions? Yvonne Cedillo [facility] documented in this encounter Plan of Treatment Not on filedocumented as of this encounter Visit Diagnoses Not on filedocumented in this encounter Care Teams Blending Kettle Tender Relationship Specialty Start Date End Date Danilo-Selma Mccoy APRN HEM INSPECTOR PCP - General 04/09/08 04/07/15 9189 [facility] [place] [address] documented as of this encounter
--- OUTSIDE RECORDS SUMMARY | 2022-01-17 22:37 | XMS_ITS | Encounter Summary ---
:1965 Author Organization [facility] Address [address] [place] [address] Care Team Providers Name Role Phone Selma Good APRN MANAGER PROPERTY Primary Care Provider [phone] Reason for Visit Reason Onset Date Comments Refill Request 01/25/2015 OUNE TOUCH ULTRA SATISH T STRIPS Encounter Details Date Type Department Care Team Description 01/25/2015 Refill [facility] Eag Selma Anthony Refill Request (OUNE 1440 [employer] SEAN Angeles MANAGER PROPERTY TOUCH ULTRA TEST STRIPS) [place] [address] [facility]0 [facility] [phone] [facility] [place] [address] (Wo rk) Social [...] How often do you attend hoahaoism or yarsani Patient refused 08/08/2019 services? Do [...] uncontrolled documented in this encounter Care Teams Extrusion Die Repairer Relationship Specialty Start Date End Date Danilo-Selma Mccoy, [place] MANAGER MANAGER PROPERTY PCP - General 04/09/08 04/07/15 9856 [facility] [place] [address] documented as of this encounter
--- OUTSIDE RECORDS SUMMARY | 2022-01-17 22:37 | XMS_ITS | Encounter Summary ---
:1965 Author Organization [facility] Address [address] [place] [address] Care Team Providers Name Role Phone Vanda Guerrero MD Primary Care Provider [phone] Reason for Visit Reason Comments RECHECK Follow up neurologist Flu Shot Encounter Details Date Type Department Care Team Description 04/08/2015 Office Visit [facility] Vanda Guerrero bola (Primary Dx); Pino Toribio MD Type 2 diabetes mellitus without complic ation (H); [address] Hyperlipidemia LDL goal <100 ; [place] [address] [facility] Hypertension goal BP (blood pressure) < 130/80; [phone] [place] [address] History of lumbar fusion; [phone] History of fusi on of cervical spine; [...] How often do you attend christian or jewish Patient refused 08/08/2019 services? Do [...] weeks - either in person or via [employer] to update me on how you are doing Schedule your mammogram - either with our mobile unit ([phone]) or at the hospital ([phone]) documented in this encounter Progress Notes Lori [...] the person to be vaccinated ever had Guillain-Brooklyn syndrome? No Form completed by patient Vanda [...] list, Allergies, and Medical/Social/Surgical histories reviewed in [facility] andupdated as appropriate. ROS: Constitutional, msk, [...] can't afford to repeat. Planning on other alf pain strategies. Continue cymbalta for now, add [...] SPLIT VIRUS IM > 3 YO (QUADRIVALENT) [66415] Vaccine Administration, Initial [40771] 10. Migraine without status migrainosus, not intractable, [...] weeks - either in person or via [employer] to update me on how you are doing Schedule your mammogram - either with our mobile unit ([phone]) or at the hospital ([phone]) Vanda Guerrero MD [facility]3]] documented in this encounter Nursing Notes Lori [...] MA Screening Digital Bilateral (04/16/2015 11:13 AM PAPER REWINDER OPERATOR) Anatomical Region Laterality Modality Breast Bilateral Mammography Specimen (Source) Anatomical Location Collection Method / Collectio n Time Received Time / Laterality Volume Impressions 04/16/2015 12:41 PM PAPER REWINDER OPERATOR IMPRESSION: BI-RADS CATEGORY: 1 - ??NEGATIVE. RECOMMENDED FOLLOW-UP: Annual Mammograph y Exam results letter mailed to patient. BRIGIDO RDZ MD Narrative 04/16/2015 12:41 PM PAPER REWINDER OPERATOR SCREENING MAMMOGRAM, BILATERAL, DIGITAL w/CAD - 04/16/2015 [...] Signature Hemoglobin A1C 6.0 4.3 - 6.0 [facility] PIN[place] Specimen Anatomical Collection Method Collection Time Receive d Time (Source) Location / / Volume Laterality Blood specimen 04/08/2015 11:58 5 (specimen) AM CDT 11:59 AM CDT Vanda Guerrero MD LAB - BLOOD ORDERABLES Performing Organization Address City/[facility]/ZIP Code Phon e Number [facility]3] [address] [place] [address] Ferritin (04/08/2015 11:58 AM CDT) athologist Signature Ferritin 31 8 - 252 [facility] ng/mL [facility] Specimen Anatomical Collection Method Collection Time Receive d Time (Source) Location / / Volume Laterality Blood specimen 04/08/2015 11:58 5 (specimen) AM CDT 11:59 AM CDT Vanda Guerrero MD LAB - BLOOD ORDERABLES Performing Organization Address [facility]/ZIP Code Phon e Number [facility] [address] [place] [address] TSH with free T4 reflex (04/08/2015 11:58 AM CDT) athologist Signature TSH 1.84 0.40 - 4.00 [facility] mU/L [facility] Specimen Anatomical Collection Method Collection Time Receive d Time (Source) Location / / Volume Laterality Blood specimen 04/08/2015 11:58 5 (specimen) AM CDT 11:59 AM CDT Vanda Guerrero MD LAB - BLOOD ORDERABLES Performing Organization Address City/[facility]/ZIP [facility] Phon e Number [facility] [address] [place] [address] CBC with platelets (04/08/2015 11:58 AM CDT) athologist Signature WBC 5.4 4.0 - 11.0 [place] 10e9/L [facility] RBC Count 4.09 3.8 - 5.2 [place] 10e12/L [facility] Hemoglobin 13.1 11.7 - [place] 15.7 g/dL [facility] Hematocrit 39.9 35.0 - [place] 47.0 % [facility] MCV 98 78 - 100 [place] fl [facility] MCH 32.0 26.5 - [place] 33.0 pg [facility] MCHC 32.8 31.5 - [place] 36.5 g/dL [facility] RDW 12.7 10.0 - [place] 15.0 % [facility] Platelet Count 260 150 - 450 [place] 10e9/L [facility] Specimen Anatomical Collection Method Collection Time Receive d Time (Source) Location / / Volume Laterality Blood specimen 04/08/2015 11:58 5 (specimen) AM CDT 11:59 AM CDT Vanda Guerrero MD LAB - BLOOD ORDERABLES Performing Organization Address City/State/ZIP Code Phon e Number [facility]3] [address] [place] [address] Vitamin D Deficiency (04/08/2015 11:58 AM CDT) athologist Signature Vitamin D 32 20 - 75 [facility] Deficiency ug/L [facility] Comment: Season, race, dietary intake, and treatm ent affect the concentration of 12-odyplbp-Wvapsex D. Values may decrea se during winter [...] Organization Address City/State/ZIP Code Phon e Number [address] (ABNORMAL) Vitamin B12 (04/08/2015 11:58 AM CDT) athologist Signature Vitamin B12 1,224 (H) 193 - 986 [facility] pg/mL [facility] Comment: Interp: [phone] = Normal Specimen Anatomical Collection Method Collection Time Receive d Time (Source) Location / / Volume Laterality Blood specimen 04/08/2015 11:58 5 (specimen) AM CDT 11:59 AM CDT Vanda Guerrero MD LAB - BLOOD ORDERABLES Performing Organization Address City/[facility]/ZIP Code Phon e Number [id number] [place] [address] (ABNORMAL) Vitamin B6 (04/08/2015 11:58 AM CDT) athologist Signature Vitamin B6 330.6 (H) [facility]3] Comment: Reference range: 20.0 to 125.0 Unit: nmol/L (Note) INTERPRETIVE INFORMATION: Vitamin B6 (Py ridoxal 5-Phosphate) Pyridoxal 5'-phosphate measured in a spe cimen collected following an 8-hour or overnight fast ac curately indicates vitamin B6 nutritional status. Non-fasti ng specimen concentration reflects recent vitamin in take. Test developed and characteristics deter mined by [employer]. See Compliance Statement B : [employer] Performed by [employer], [address] [place] [id number] [email or web address], Jae Botello MD, L ab. Director Specimen Anatomical Collection Method Collection Time Receive d Time (Source) Location / / Volume Laterality Blood specimen 04/08/2015 11:58 5 (specimen) AM CDT 11:59 AM CDT Vanda Guerrero MD LAB - BLOOD ORDERABLES Performing Organization Address City/[facility]/ZIP Code Phon e Number [address] [address] documented in this encounter Visit Diagnoses Diagnosis [...] mammogram documented in this encounter Care Teams Lifts And Cranes Inspector Relationship Specialty Start Date End Date Vanda Guerrero MD PCP - General Internal Medicine 04/08/15 01/08/[address] [facility] [address] [place], [place] [address] documented as of this encounter
--- OUTSIDE RECORDS SUMMARY | 2022-01-17 22:37 | XMS_ITS | Encounter Summary ---
:1965 Author Organization [facility] Address [address] [facility] [place] [address] Care Team Providers Name Role Phone Selma Good APRN DRAWING MACHINE OPERATOR Primary Care Provider [phone] Reason for Visit Reason Onset Date Comments Patient/info Update 01/19/2015 Post LESI Encounter Details Date Type Department Care Team Description 01/19/2015 Telephone [facility] Pain Teagan Solares, Patient/info Update Management Center DO (Post LESI) [address] [place] [address] PAIN [place] [address] CL[facility] [place], [place] [address] [facility] [place] [address] [place] [address] [phone] Social History Tobacco Use Types Packs/Day Years [...] How often do you attend yazdanism or hoahaoism Patient refused 08/08/2019 services? Do [...] pt should call the nurse line at [phone]. Lashae Stack(R) documented in this encounter Plan of Treatment Not on filedocumented as of this encounter Visit Diagnoses Not on filedocumented in this encounter Care Teams Housing Officer Relationship Specialty Start Date End Date Selma Good APRN DRAWING MACHINE OPERATOR PCP - General 04/09/08 04/07/15 9[address] [facility] [place] [address] documented as of this encounter
--- OUTSIDE RECORDS SUMMARY | 2022-01-17 22:37 | XMS_ITS | Encounter Summary ---
:1965 Author Organization [facility] Address [facility]ly [facility], [address] [place] [address] Care Team Providers Name Role Phone Selma Good APRN ASSISTANT ACCOUNT EXECUTIVE Primary Care Provider [phone] Reason for Visit (Routine) - Closed Specialty Diagnoses / Procedures Referred By Contact Refer red To Contact Radiology / Radiology. Diagnoses R#NA, BC, written order Sh Ct Scan Procedures CT LUMBAR SPINE WO [address] [place] [address] Phone: Referral ID Status Reason Start Date Expiration Date Visits Requ ested Visits Authorized [id number] Closed 01/01/2015 01/01/2016 1 1 Encounter Details Date Type Department Care Team Description 01/08/2015 Hospital Encounter [facility], [facility] atus post lumbar [facility] SEAN Angeles ASSISTANT ACCOUNT EXECUTIVE spinal fusion [address] [place] [address] ORTHOPEDICS [phone] [place] [address] Social History Tobacco Use Types Packs/Day Years [...] How often do you attend caodaism or confucianism Patient refused 08/08/2019 services? Do you belong to any clubs or organizations such as No 08/08/2019 caodaism groups, [employer] As[employer], fraVet Brother Lawn Service or athletic groups, or school groups? How [...] 2 times capsuleIndications: daily Fibromyalgia fluticasone (FLONASE) Bronson 1-2 sprays into 3 Package 3 05/03/2016 [...] Region Laterality Modality Spine, SUBRAD CT MSK, [facility] CT SPINE Compu jayne Tomography Specimen [...] joint. ABRAHAM BAEZ MD Rosalia Main APRN ASSISTANT ACCOUNT EXECUTIVE IMG CT ORDERABLES documented in this encounter Visit Diagnoses Diagnosis Status post lumbar spinal fusion Arthrodesis status documented in this encounter Care Teams Feeder Catcher Tobacco Relationship Specialty Start Date End Date Danilo-Selma Mccoy APRN ASSISTANT ACCOUNT EXECUTIVE PCP - General 04/09/08 04/07/[address] [facility] [place] [address] documented as of this encounter
--- OUTSIDE RECORDS SUMMARY | 2022-01-17 22:37 | XMS_ITS | Encounter Summary ---
:1965 Author Organization [facility] Address [address] [place] [address] Care Team Providers Name Role Phone Vanda Guerrero MD Primary Care Provider [phone] Reason for Visit Reason Onset Date Comments Refill Request 05/11/2015 SIMVASTATIN 20MG Encounter Details Date Type Department Care Team Description 05/11/2015 Refill [facility] Vanda Lal, Refill Request [address] [facility] SALDANA (SIMVASTATIN 20MG) [place] [phone] 5[address] [facility] [phone] [facility] [place] [address] (Wo rk) Social [...] How often do you attend mormon or hinduism Patient refused 08/08/2019 services? Do [...] Shante Joya RN - 05/11/2015 12:01 PM WEBFED OFFSET PRESS OPERATOR Prescription approved per [facility] Refill Protocol. RERE Franco Triage Nurse ED OFFSET PRESS OPERATOR Telephone Encounter - Marisa Matthew - 05/11/2015 7:56 AM CST SIMVASTATIN 20MG Last Written Prescription Date: 10/06/2014 Last Fill Quantity: 90, # refills: 1 Last Office Visit with [facility] primary care provider: 04/08/2015 CHOL 153 08/10/2014 HDL 61 08/10/2014 LDL 76 08/10/2014 TRIG 79 08/10/2014 CHOLHDLRATIO 2.5 08/10/2014 ED OFFSET PRESS OPERATOR documented in this encounter Plan of Treatment Not on filedocumented as of this encounter Visit Diagnoses Diagnosis Hyperlipidemia LDL goal <100 - Primary Other and unspecified hyperlipidemia documented in this encounter Care Teams Serologist Relationship Specialty Start Date End Date Vanda Guerrero MD PCP - General Internal Medicine 04/08/15 01/08/19 [address] [facility] [place] [address] documented as of this encounter
--- OUTSIDE RECORDS SUMMARY | 2022-01-17 22:37 | XMS_ITS | Encounter Summary ---
:1965 Author Organization [place] Address [address] [place] [address] Care Team Providers Name Role Phone Selma Angelo APRN [facility] Primary Care Provider [phone] Reason for Visit Reason Comments Physical Encounter Details Date Type Department Care Team Description 10/06/2014 Office Visit [facility] Florentino, Lilo gen eral medical examination at a health care facility (Primary Dx); Pino Angeles APRN Major depressive disorder, r ecurrent (H); [facility] Type 2 diabetes, HbA1C goal < 7% (H); [place] [address] [facility]5 [facility] Hyperlipidemia LDL goal <100 ; [phone] [facility] Hypertension goal BP (blood pressure) < 130/80; [place] [address] Anxiety; [phone] GERD (gastroeso phageal reflux disease); (Work) Migraine headache; [phone] Fibromyalgia; (Fax) OME (otitis med ia with [...] How often do you attend shinto or lutheran Patient refused 08/08/2019 services? Do [...] recommended All Histories reviewed and updated in [facility]. ROS: C: NEGATIVE for fever, chills, [...] list, Allergies, and Medical/Social/Surgical histories reviewed in [facility] andupdated as appropriate. OBJECTIVE: BP 97/67 Pulse [...] - fluticasone (FLONASE) 50 MCG/ACT nasal spray; Schlater 1-2 sprays into both nostrils daily Dispense: [...] 2010 [employer]'s My[employer] Selma Angelo APRN CNP [facility] documented in this encounter Plan of [...] logist Time Signature Occult Blood Negative NEG [facility] [place] Specimen Anatomical Collection Method Collection Time Receive d Time (Source) Location / / Volume Laterality Stool specimen 01/11/2015 9:00 AM 015 (specimen) CDT 10:42 AM CDT Selma Angelo APRN LEATHER SCRAPER LAB - STOOLS ORDERABLES Performing Organization Address City/State/ZIP Code Phon e Number [facility] [address] [place] [address] [facility] Creatinine (10/06/2014 10:18 AM CDT) P athologist Signature Creatinine 0.76 0.52 - 1.04 [facility] mg/dL [facility] GFR Estimate 79 >60 [facility] mL/min/1.7m [address] Comment: Non GFR Calc GFR Estimate If Black >90 >60 mL/min/1.7m2 F [facility] GFR Calc HOSP ITAL Specimen Anatomical Collection Method Collection Time Receive d Time (Source) Location / / Volume Laterality Blood specimen 10/06/2014 10:18 5 (specimen) AM CDT 10:19 AM CDT Selma Angelo APRN, CNP LAB - BLOOD ORDERABLES Performing Organization Address City/State/ZIP Code Phon e Number [facility] [address] [place] [address] [facility] [address] [place] [address] Hemoglobin A1c (10/06/2014 10:18 AM CDT) P athologist Signature Hemoglobin A1C 5.8 4.3 - 6.0 [facility] [place] Specimen Anatomical Collection Method Collection Time Receive d Time (Source) Location / / Volume Laterality Blood specimen 10/06/2014 10:18 5 (specimen) AM CDT 10:19 AM CDT Selma Karthik Angelo APRN, CNP LAB - BLOOD ORDERABLES Performing Organization Address City/State/ZIP Code Phon e Number [facility] [address] [place] [address] HPV High Risk Types DNA Cervical (10/06/2014 9:50 AM CDT) Component Value Ref Test Analysis Performed At [facility] gist Range Method Time Signature HPV 16 DNA Negative NEG [facility] HPV 18 DNA Negative NEG [facility] Other HR HPV Negative NEG [facility] Final This patient's sample is negative for HP V DNA. ?? [employer] Diagnosis Obstetricians and Gynecolog ists (ACOG) recommends any woman between 30-65 years OF [place] old who receives negative test results on both Pap cytology screening and HPV MEDICAL DNA testing should be rescreened in 5 years. [facility] (Note) [place] METHODOLOGY: ??The Alaina kandy 4800 system uses [...] and its performance characteristics determined by the [facility]. It has not been cleared or approved by the FDA. The laboratory is regulated under CLIA as qualified to perform high-complexity testing. This test is used for clinical purp oses. It should not be regarded as investigational or for research. Specimen Cervical Cells [facility] Specimen Anatomical Collection Method Collection Time Receive d Time (Source) Location / / Volume Laterality 10/06/2014 9:50 AM 5 CDT 11:50 AM CDT Selma Angelo APRN LEATHER SCRAPER LAB - BLOOD ORDERABLES Performing Organization Address City/State/ZIP Code Phon e Number [facility] [address] [place] [address] [facility] (ABNORMAL) HPV High Risk Types DNA Cervical (10/06/2014 9:50 AM CDT) Component Value Ref Test Analysis Performed At [facility] Range Method Time Signature HPV 16 DNA Test canceled - [facility] Lab mill recorder [place] error (A) [facility] HPV 18 DNA Test canceled - NEG [facility] Lab mill recorder [place] error (A) [facility] Other HR HPV Test canceled - NEG [facility] Lab mill recorder [place] error (A) [facility] Final Test canceled - Lab mill recorder error [facility] Diagnosis (Note) [place] METHODOLOGY: ??The Alaina kandy 4800 system uses automated extraction, MEDICAL simultaneous amplification of HPV (L1 region) and beta-globi n, [facility] followed by ??real time detection of fluorescent [...] and its performance characteristics determined by the [facility]. It has not been cleared or approved by the FDA. The laboratory is regulated under CLIA as qualified to perform high-complexity testing. This test is used for clinical purp oses. It should not be regarded as investigational or for research. Specimen Test canceled - Lab mill recorder error [facility] Description CORRECTED ON 10/08 AT 1146: PREVIOUSLY REPORTED Cer vical Cells OF [facility] Specimen Anatomical Collection Method Collection Time Receive d Time (Source) Location / / Volume Laterality Cervical Cells 10/06/2014 9:50 AM 015 CDT 10:19 AM CDT Selma Angelo PROC TECH LEATHER SCRAPER LAB - BLOOD ORDERABLES Performing Organization Address City/State/ZIP Code Phon e Number [facility] [address] [place], [place] [id number] [place] [address] PAP IMAGED THIN LAYER SCREEN (10/06/2014 12:00 AM CDT) Component Value Ref Test Analysis Performed At [facility] gist Range Method Time Signature PAP NIL COPATH Copath Report COPATH Patient Name: MEGAN CHOI MR#: [id number] Specimen #: [id number] Collected: 10/06/2014 Received: 10/06/2014 Reported: 10/07/2014 13:33 [...] Lesion or Malignancy Electronically signed out by: DMOENICO Winslow (ASCP) Processed and screened at [facility] CLINICAL HISTORY: Previous normal pap Date of Last Pap: 05/05/2011, Papanicolaou Test Limitations: ??Cervical cytology is a scre ening test with limited sensitivity; regular screening is critical for cancer prevention; Pap tests are primarily effective for the diagnosis/prevention of squamous cell carcinoma, not adenoca rcinomas or other cancers. TESTING LAB LOCATION: [facility] [place], [place] ??[address] COLLECTION SITE: Client: ??[facility] Location: [facility] (R) Specimen (Source) Anatomical Collection [...] left documented in this encounter Care Teams Hydraulic Rockbreaker Operator Relationship Specialty Start Date End Date Selma Angelo APRN LEATHER SCRAPER PCP - General 04/09/08 04/07/15 [address] [facility] [place] [address] documented as of this encounter
--- OUTSIDE RECORDS SUMMARY | 2022-01-17 22:37 | XMS_ITS | Encounter Summary ---
:1965 Author Organization [facility] Address [address] [place] [address] Care Team Providers Name Role Phone Selma Good APRN, CNP Primary Care Provider [phone] Reason for Referral - Closed Specialty Diagnoses / Procedures Referred By Contact Refer red To Contact Diagnoses Degenerative disc disease Rosalia Main APRN CNP [facility] [address] [facility] [address] [place] [address] Referral ID Status Reason Start Date Expiration Date Visits Requ ested Visits Authorized [id number] Closed 01/08/2015 01/08/2016 1 1 Encounter Details Date Type Department Care Team Description 01/08/2015 Orders Only [facility] Rosalia Main cleopatra disc [facility] SEAN Angeles P disease (Primary Dx) Bozena [facility] [address] [facility] [address] [place] [address] [phone] Social History Tobacco Use Types Packs/Day Years [...] How often do you attend catholic or mandaeism Patient refused 08/08/2019 services? Do [...] Name Type Priority Associated Diagnoses Order S [facility] Referral Routine Degenerative disc Ordered: 01/08/2015 (HOMER) REFERRAL disease documented as of this encounter Visit Diagnoses Diagnosis Degenerative disc disease - Primary Degeneration of intervertebral disc, sit e unspecified documented in this encounter Care Teams Pocketed Spring Assembler Relationship Specialty Start Date End Date Selma Good APRN IMMIGRATION SPECIALIST PCP - General 04/09/08 04/07/15 [address] [facility] [place] [address] documented as of this encounter
--- OUTSIDE RECORDS SUMMARY | 2022-01-17 22:37 | XMS_ITS | Encounter Summary ---
:1965 Author Organization [facility] Address [address] [place] [address] Care Team Providers Name Role Phone Selma Good APRN DURALUMIN METALWORKER Primary Care Provider [phone] Reason for Visit Reason Comments Pain FABIAN for Pain Management Encounter Details Date Type Department Care Team Description 01/26/[address] [facility] SolaresTeagan german Cervical s pondylosis without myelopathy (Primary Dx); Injection Office Pain Management DO Noreen Cervical radiculopathy Visit [address] [place] [address] [place], [place] [phone] [address] (Work) [phone] Social History Tobacco Use Types Packs/Day Years [...] How often do you attend congregational or bahai Patient refused 08/08/2019 services? Do [...] Lew CMA - 01/26/2015 9:11 AM CDT [facility] Procedure Discharge Instruction Nurse line #:[phone] Appointment line #; [phone] Teagan Solares You had [...] medication, which will hopefully give you the regional intermodal truck driver relief, may take up to 14 days [...] center nursing line during work hours at [phone] or lead front desk agent physician after hours at [phone] (choose option #1): o Fever over 100F [...] Solares DO - 01/26/2015 8:44 AM CDT [facility] - Procedure Note Date of Visit: 01/26/15 Procedure performed: T1-T2 interlaminar epidural steroid injection with fluoroscopic guidance Diagnosis: Cervical spondylosis; Cervical radiculitis/radiculopathy Alley Worker: Teagan Solares DO Anesthesia: none Indications: Megan [...] the patient was advised to contact the [facility] for any of the [...] weeks for post-procedure evaluation. Teagan Solares DO [facility] documented in this encounter Nursing Notes Cathie [...] active infection? NO Does patient have a cdl driver? 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 NO Are [...] using cuff size: large Cathie Lew CMA ([facility]) Pain Management Center documented in this encounter Plan of Treatment Not on filedocumented as of this encounter Visit Diagnoses Diagnosis Cervical spondylosis without myelopathy - Primary Cervical radiculopathy Brachial neuritis or radiculitis nos documented in this encounter Care Teams Mine Equipment Design Engineer Relationship Specialty Start Date End Date Selma Good APRN DURALUMIN METALWORKER PCP - General 04/09/08 04/07/15 [address] [facility] [address] [place], [place] [address] documented as of this encounter
--- OUTSIDE RECORDS SUMMARY | 2022-01-17 22:37 | XMS_ITS | Encounter Summary ---
:1965 Author Organization [facility] Address [address] [place] [address] Care Team Providers Name Role Phone Selma Good APRN EMBEDDED SOFTWARE DEVELOPER Primary Care Provider Encounter Details Date Type Department Care Team Description 01/11/2015 Orders Only [facility] Eag an Routine general medical [address] [facility] [place] [address] care facility [phone] Social History Tobacco Use Types Packs/Day Years [...] How often do you attend uatsdin or episcopalian Patient refused 08/08/2019 services? Do [...] Signature Occult Blood Negative NEG [facility] FIT [facility] Specimen Anatomical Collection Method Collection Time Receive d Time (Source) Location / / Volume Laterality Stool specimen 01/11/2015 9:00 AM 015 (specimen) CDT 10:42 AM CDT Selma Good APRN EMBEDDED SOFTWARE DEVELOPER LAB - STOOLS ORDERABLES Performing Organization Address City/State/ZIP Code Phon e Number [facility] [address] [place] [address] [facility] documented in this encounter Visit Diagnoses Diagnosis Routine general medical examination at a health care facility documented in this encounter Care Teams Production Posting Clerk Relationship Specialty Start Date End Date Danilo-Selma Mccoy, TABLEAU REPORT DEVELOPER EMBEDDED SOFTWARE DEVELOPER PCP - General 04/09/08 04/07/[address] [facility] [address] [address] [place], [place] [address] documented as of this encounter
--- OUTSIDE RECORDS SUMMARY | 2022-01-17 22:37 | XMS_ITS | Encounter Summary ---
:1965 Author Organization [facility] Address [address] [place] [address] Care Team Providers Name Role Phone Selma Good APRN KNITTING TESTER Primary Care Provider [phone] Reason for Visit Reason Onset Date Comments Other 01/08/2015 Encounter Details Date Type Department Care Team Description 01/08/2015 Telephone [facility] Neurosurgery [place], Angella Angeles, Other Clinic [place] DIESEL LOCOMOTIVE FIRER/FIREMAN KNITTING TESTER [address] [facility] [address] [place] [address] [address] [place], [place] [address] (Wo rk) Social History [...] How often do you attend gnosticist or jain Patient refused 08/08/2019 services? Do [...] and lumbar spine. Recommend injection therapy. Referredto [facility]. documented in this encounter Plan of Treatment Not on filedocumented as of this encounter Visit Diagnoses Not on filedocumented in this encounter Care Teams Warper Tender Relationship Specialty Start Date End Date Selma Good APRN CNP PCP - General 04/09/08 04/07/[address] [facility] [address] [place], [place] [address] documented as of this encounter
--- OUTSIDE RECORDS SUMMARY | 2022-01-17 22:37 | XMS_ITS | Encounter Summary ---
:1965 Author Organization [facility] Address [address] [place] [address] Care Team Providers Name Role Phone Vanda Guerrero MD Primary Care Provider [phone] Reason for Visit (Routine) - Closed Specialty Diagnoses / Procedures Referred By Contact Refer red To Contact Radiology / Radiology. Diagnoses prev [facility] Procedures MA SCREENING DIGITAL BILATERAL [address], [address] [place] [address] Phone: Fax: Referral ID Status Reason Start Date Expiration Date Visits Requ ested Visits Authorized [id number] Closed 04/15/2015 04/14/2016 1 1 Encounter Details Date Type Department Care Team Description 04/16/2015 Hospital Encounter [facility] Vanda Guerrero for screening Dulactoan Toribio MD mammogram Center [address] [place] [address] [address], [address] [place] [address] [place], [place] [phone] [address] (Work) [phone] Social History Tobacco Use Types Packs/Day Years [...] How often do you attend religious or roman catholic Patient refused 08/08/2019 services? Do you belong to any clubs or organizations such as No 08/08/2019 religious groups, Skyengs, fraPaperlit or athletic groups, or school groups? How [...] 2 Fibromyalgia times daily fluticasone (FLONASE) [address] [place] 1-2 sprays 3 Package 3 10/0605/03/2016 MCG/ACT [...] screening R esults for this DIGITAL BILATERAL SURFACE GRINDER TENDER mammogram procedure are in the results section. documented in this encounter Results MA Screening Digital Bilateral (04/16/2015 11:13 AM SURFACE GRINDER TENDER) Anatomical Region Laterality Modality Breast Bilateral Mammography Specimen (Source) Anatomical Location Collection Method / Collectio n Time Received Time / Laterality Volume Impressions 04/16/2015 12:41 PM SURFACE GRINDER TENDER IMPRESSION: BI-RADS CATEGORY: 1 - ??NEGATIVE. RECOMMENDED FOLLOW-UP: Annual Mammograph y Exam results letter mailed to patient. BRIGIDO RDZ MD Narrative 04/16/2015 12:41 PM SURFACE GRINDER TENDER SCREENING MAMMOGRAM, BILATERAL, DIGITAL w/CAD - 04/16/2015 [...] mammogram documented in this encounter Care Teams Field Administrator Relationship Specialty Start Date End Date Vanda Guerrero MD PCP - General Internal Medicine 04/08/15 01/08/19 [address] [facility] [place] [address] documented as of this encounter
--- OUTSIDE RECORDS SUMMARY | 2022-01-17 22:37 | XMS_ITS | Encounter Summary ---
:1965 Author Organization [facility] Address [address] [place] [address] Care Team Providers Name Role Phone Selma Good APRN SUPERVISOR/PORT DIRECTOR Primary Care Provider [phone] Encounter Details Date Type Department Care Team Description 01/12/[address] [facility] Teagan Solares DDD (degenerative Clinic [facility] disc disease), Pain Management [facility] lumbar [address] [facility] [address] [place] [address] [place], [place] [phone] [address] (Work) [phone] Social History Tobacco Use Types Packs/Day Years [...] How often do you attend baptism or jain Patient refused 08/08/2019 services? Do [...] be read by a radiologist or a [facility] non-radiologis t provider. Procedure Note Lashae Alexis - 01/12/2015Formatt ing of this note might be different from the original. This exam was marked as non-reportable b ecause it will not be read by a radiologist or a [facility] non-radiologist provider. Teagan Solares DO IMG DIAGNOSTIC [...] dose documented in this encounter Care Teams Director It Relationship Specialty Start Date End Date Selma Good, PIANO TUNER SUPERVISOR/PORT DIRECTOR PCP - General 04/09/08 04/07/15 [address] [facility] [address] [place], [place] [address] documented as of this encounter
--- OUTSIDE RECORDS SUMMARY | 2022-01-17 22:37 | XMS_ITS | Encounter Summary ---
:1965 Author Organization [facility] Address [address] [place] [address] Care Team Providers Name Role Phone Selma Good APRN, CNP Primary Care Provider [phone] Reason for Visit Reason Onset Date Comments Refill Request 12/22/2014 LORATADINE-D 24 HOUR TABLET Encounter Details Date Type Department Care Team Description 12/22/[address] [facility] Selma Hodges Refill Request [employer] SEAN Angeles CNP (LORATADINE-D 24 HOUR [place] [phone] 7[address] [facility] TABLET) [phone] [facility] [place] [address] (Wo rk) [...] How often do you attend adventism or jehovah's witness Patient refused 08/08/2019 services? [...] PM CDT Faxed. Telephone Encounter - Selma oGod APRN CNP - 12/22/2014 4:51 PM CDT Prescription printed, signed and put on MA/TEST TECHNICIAN's desk. Thanks! Telephone Encounter - Marisa Matthew - 12/22/2014 4:42 PM CDT LORATADINE-D 24 HOUR TABLET Last Written Prescription Date: 12/17/2013 Last Fill Quantity: 90, # refills: PRN Last Office Visit with [facility] primary care provider: 12/09/2014 Future Office visit: Routing refill request to provider for review/approval because: Drug not on the [facility] refill protocol or controlled substance documented in this encounter Plan of Treatment Not on filedocumented as of this encounter Visit Diagnoses Diagnosis Seasonal allergic rhinitis - Primary Allergic rhinitis, cause unspecified documented in this encounter Care Teams Automotive Internet Sales Consultant Relationship Specialty Start Date End Date Selma Good APRN TUTORING ASSISTANT PCP - General 04/09/08 04/07/15 [address] [facility] [facility] [address] [place], [place] [address] documented as of this encounter
--- OUTSIDE RECORDS SUMMARY | 2022-01-17 22:37 | XMS_ITS | Encounter Summary ---
:1965 Author Organization [place] Address [facility] [place] [address] Care Team Providers Name Role Phone Selma Good APRN COSMETIC MAKER Primary Care Provider [phone] Reason for Visit Reason Onset Date Comments Referral 10/21/2014 New Dual Encounter Details Date Type Department Care Team Description 10/21/2014 [facility] Pain Pain Management Re ferral (New Dual ) Management Center Program, [place] [address] [place] [address] [address] [place] [address] Social History Tobacco Use Types [...] How often do you attend taoism or episcopal Patient refused 08/08/2019 services? Do [...] schedule new dual with patient. Halie Siddiqui Ornamental Iron Worker Pain Management Clinic documented in this encounter Plan of Treatment Not on filedocumented as of this encounter Visit Diagnoses Not on filedocumented in this encounter Care Teams Law Tutor Relationship Specialty Start Date End Date Selma Good APRN COSMETIC MAKER PCP - General 04/09/08 04/07/15 [address] [facility] [place] [address] documented as of this encounter
--- OUTSIDE RECORDS SUMMARY | 2022-01-17 22:37 | XMS_ITS | Encounter Summary ---
:1965 Author Organization [place] Address [address] [place] [address] Care Team Providers Name Role Phone Selma Good APRN CHEMICAL SUPERVISOR Primary Care Provider [phone] Encounter Details Date Type Department Care Team Description 03/24/2015 Orders Only [facility] Florentino, Type 2 diab etes mellitus without complication (H) (Primary Dx); Pino Angeles APRN Obesity [address] CHEMICAL SUPERVISOR [place] [address] [address] [facility] [phone] [facility] [place] [address] Social History [...] How often do you attend catholic or scientology Patient refused 08/08/2019 services? Do [...] unspecified documented in this encounter Care Teams Oil Spreader Operator Relationship Specialty Start Date End Date Danilo-Selma Mccoy, TESTING MACHINE OPERATOR CHEMICAL SUPERVISOR PCP - General 04/09/08 04/07/[address] [facility] [address] [place], [place] [address] documented as of this encounter
--- OUTSIDE RECORDS SUMMARY | 2022-01-17 22:37 | XMS_ITS | Encounter Summary ---
:1965 Author Organization [place] Address [address] [place] [address] Care Team Providers Name Role Phone Selma Good APRN, CNP Primary Care Provider [phone] Reason for Visit Reason Onset Date Comments Refill Request 08/25/2014 TOPIRAMATE 50MG Encounter Details Date Type Department Care Team Description 08/25/2014 Refill [facility] Selma Hodges Refill Request [address] [employer] SEAN Angeles CNP (TOPIRAMATE 50MG) [place] [phone] [place] [address] [facility] [place] [id number] (Wo rk) Social History Tobacco Use Types [...] How often do you attend catholic or roman catholic Patient refused 08/08/2019 services? [...] I sent her a reminder letter, via [employer] and also mailed her a letter Meeta Cobb RN. Telephone Encounter - Marisa Matthew - 08/25/2014 8:48 AM CDT Refill request for: TOPIRAMATE 50 mg Last prescribed by provider: Date: 05/30/2013 Quantity 270 w/ PRN refills Last filled through pharmacy: Date: 05/30/2014 Pharmacy Comments: LU ZELENA Matthew RT(R) documented in this encounter Plan of Treatment Not on filedocumented as of this encounter Visit Diagnoses Diagnosis Migraine headache - Primary Migraine, unspecified, without mention o f intractable migraine without mention of status migrainosus documented in this encounter Care Teams Assistant Producer Relationship Specialty Start Date End Date Danilo-Selma Mccoy, COUNSELING PSYCHOLOGIST PRESIDENT AND CMO PCP - General 04/09/08 04/07/15 [address] [facility] [place] [address] documented as of this encounter
--- OUTSIDE RECORDS SUMMARY | 2022-01-17 22:38 | XMS_ITS | Encounter Summary ---
:1965 Author Organization [facility] Address [address] [place] [address] Care Team Providers Name Role Phone Selma Good APRN, CNP Primary Care Provider [phone] Reason for Visit Reason Onset Date Comments Refill Request 08/17/2014 SIMVASTATIN 20MG Refill Request 08/17/2014 LISINOPRIL 5MG Encounter Details Date Type Department Care Team Description 08/17/2014 Refill [facility] E[facility] Selma Anthony Refill Request 1440 [employer] SEAN Angeles CNP (SIMVASTATIN 20MG); [place] [phone] [address] [facility] Refill Request [phone] NASIR ANDRE (LISINOPRIL 5MG) [place] [address] [...] How often do you attend baptism or rastafari Patient refused 08/08/2019 services? Do [...] hypertension documented in this encounter Care Teams Cuff Cutter Relationship Specialty Start Date End Date Danilo-Selma Mccoy, TELECOMMUNICATIONS TECHNICIAN COATINGS INSPECTOR PCP - General 04/09/08 04/07/15 [address] [facility] [address] [place], [place] [address] documented as of this encounter
--- OUTSIDE RECORDS SUMMARY | 2022-01-17 22:38 | XMS_ITS | Encounter Summary ---
:1965 Author Organization [facility] Address [address] [place] [address] Care Team Providers Name Role Phone Selma Good ESTHETICIAN AND MANAGER MEDICAL SPA BENEFITS ANALYST Primary Care Provider [phone] Reason for Visit Reason Onset Date Comments Orders 06/02/2014 Encounter Details Date Type Department Care Team Description 06/02/2014 Telephone [facility] E[facility] Selma Anthony, Orders [facility] [facility] ESTHETICIAN AND MANAGER MEDICAL SPA [place] [phone] [place] [address] [facility] [place] [address] (Wo rk) [...] How often do you attend catholic or catholic Patient refused 08/08/2019 services? Do [...] effects to this medication. Selma Good NP [facility] CAL ASSISTANT FLOAT Telephone Encounter - Rossana Adams - 06/02/2014 12:[address] orders for upcoming lab appointment on 06/08/14 Thank you CAL ASSISTANT FLOAT documented in this encounter Plan of Treatment Not on filedocumented as of this encounter Results Lipid panel reflex to direct LDL (06/08/2014 8:40 AM MEDICAL ASSISTANT FLOAT) athologist Signature Cholesterol 197 <200 mg/dL [facility] Comment: LDL Cholesterol is the primary guide to therapy. The NCEP recommends further evaluation of: patients with cholesterol greater than 200 mg/dL if additional risk facto rs are present, cholesterol greater than 240 mg/dL, triglycerides greater than 1 50 mg/dL, or HDL less than 40 mg/dL. Triglycerides 77 0 - 150 mg/dL [facility] Comment: Fasting specimen HDL Cholesterol 57 >50 mg/dL [facility] LDL Cholesterol Calculated 125 0 - 129 mg/dL [facility] Comment: LDL Cholesterol is the primary guide to therapy: LDL-cholesterol goal in high risk patients is <100 mg/dL and in very high risk patients is <70 mg/dL. VLDL-Cholesterol 15 0 - 30 mg/dL [facility] Cholesterol/HDL Ratio 3.5 0.0 - 5.0 [facility] Specimen Anatomical Collection Method Collection Time Receive d Time (Source) Location / / Volume Laterality Blood specimen 06/08/2014 8:40 AM 014 8:45 (specimen) MEDICAL ASSISTANT FLOAT AM MEDICAL ASSISTANT FLOAT Selma Good ESTHETICIAN AND MANAGER MEDICAL SPA BENEFITS ANALYST LAB - BLOOD ORDERABLES Performing Organization Address City/State/ZIP Code Phon e Number [facility] [address] [place] [address] [facility] [address] [place], [place] [address] documented in this encounter Visit Diagnoses Diagnosis Hyperlipidemia LDL goal <100 - Primary Other and unspecified hyperlipidemia documented in this encounter Care Teams Air Drier Machine Operator Relationship Specialty Start Date End Date Selma Good, SEAN BENEFITS ANALYST PCP - General 04/09/08 04/07/[address] [place] [address] documented as of this encounter
--- OUTSIDE RECORDS SUMMARY | 2022-01-17 22:38 | XMS_ITS | Encounter Summary ---
:1965 Author Organization [facility] Address [address] [place] [address] Care Team Providers Name Role Phone Selma Good APRN INSURANCE SALES SUPERVISOR Primary Care Provider [phone] Reason for Visit Reason Comments Hospital F/U Headache would like med Pain Overall whole body pain Encounter Details Date Type Department Care Team Description 11/15/2011 Office Visit [facility] Florentino, LBP (low ba ck pain) (Primary Dx); Pino Angeles APRN Migraine; [address] INSURANCE SALES SUPERVISOR Cervical pain [place] [address] [facility] [phone] [facility] [place] [id number] Social History Tobacco Use Types Packs/Day Years [...] How often do you attend congregation or synagogue Patient refused 08/08/2019 services? Do [...] Cervicalgia documented in this encounter Care Teams City [place] Relationship Specialty Start Date End Date Selma Good, WATER PUMP INSTALLER INSURANCE SALES SUPERVISOR PCP - General 04/09/08 04/07/15 [address] [facility] [place] [address] documented as of this encounter
--- OUTSIDE RECORDS SUMMARY | 2022-01-17 22:38 | XMS_ITS | Encounter Summary ---
:1965 Author Organization [facility] Address [address] [place] [address] Care Team Providers Name Role Phone Selma Good APRN [facility] Primary Care Provider [phone] Reason for Visit Reason Comments Diabetes Encounter Details Date Type Department Care Team Description 12/10/2012 Office Visit [facility] Florentino, Type 2 diab etes, HbA1C goal < 7% (H) (Primary Dx); Pino Angeles APRN Major depressive disorder, r ecurrent (H); [address] [facility] Hyperlipidemia LDL goal <100; [place] [phone] [address] [facility] Hypertension goal BP (blood pressure) < 130/80; [phone] [facility] DAV[place] [id number] Social History Tobacco Use Types Packs/Day Years [...] How often do you attend samaritan or episcopalian Patient refused 08/08/2019 services? Do [...] non-fasting labs in May. Selma Good NP, LACTATION COORDINATOR [facility] documented in this encounter Nursing Notes [...] unspecified documented in this encounter Care Teams Tour Driver Relationship Specialty Start Date End Date Selma Good, TRIPPER DELIVERY NURSE PCP - General 04/09/08 04/07/[address] [facility] [address] [place], [place] [address] documented as of this encounter
--- OUTSIDE RECORDS SUMMARY | 2022-01-17 22:38 | XMS_ITS | Encounter Summary ---
:1965 Author Organization [facility] Address [address] [place] [address] Care Team Providers Name Role Phone Selma Good APRN [facility] Primary Care Provider [phone] Reason for Visit Reason Comments RECHECK Encounter Details Date Type Department Care Team Description 12/05/2011 Office Visit [facility] Florentino, Headaches, migraine (Primary Dx); Pino Angeles APRN Cervical pain [address] [place] [address] [facility] [phone] [facility] [place] [address] Social History [...] How often do you attend evangelical or islam Patient refused 08/08/2019 services? Do [...] Cervicalgia documented in this encounter Care Teams Gymnastics Coach Or Instructor Relationship Specialty Start Date End Date Selma Good APRN ALTERNATIVE ENERGY TECHNICIAN PCP - General 04/09/08 04/07/15 3301 [facility] [place] [address] documented as of this encounter
--- OUTSIDE RECORDS SUMMARY | 2022-01-17 22:38 | XMS_ITS | Encounter Summary ---
:1965 Author Organization [facility] Address [address] [place] [address] Care Team Providers Name Role Phone Selma Good APRN [facility] Primary Care Provider [phone] Reason for Visit Reason Comments Depression Encounter Details Date Type Department Care Team Description 04/29/2014 Office Visit [facility] Florentino, Anxiety (Pr imary Dx); Pino Angeles APRN Insomnia; [address] [facility] Major depressive disorder, recurrent (H) ; [place] [phone] 3305 [facility] Need for prophylactic vaccin ation and inoculation against influenza; [phone] [facility] Need for prophylactic vaccination agains t Streptococcus pneumoniae (pneumococcus); [place] [address] Type 2 diabetes, HbA1C goal < 7% (H); [phone] Hypertension go al BP (blood pressure) < [...] How often do you attend confucianism or buddhism Patient refused 08/08/2019 services? Do [...] Comments Blood Pressure 86/54 04/29/2014 1:55 PM AEROBICS INSTRUCTOR Pulse 76 04/29/2014 1:55 PM AEROBICS INSTRUCTOR Temperature 35.4 ??C (95.7 ??F) 04/29/2014 1:55 PM AEROBICS INSTRUCTOR Respiratory Rate 16 04/29/2014 1:55 PM AEROBICS INSTRUCTOR Oxygen Saturation - - Inhaled Oxygen Concentration - - Weight 67.9 kg (149 lb 9.6 oz) 04/29/2014 1:55 PM AEROBICS INSTRUCTOR Height - - Body Mass Index 27.36 10/27/2013 8:53 AM CDT documented in this encounter Patient Instructions Patient InstructionsSelma Good NP - 04/29/2014 2:26 PM AEROBICS INSTRUCTOR STOP the lisinopril AND the simvastatin. Schedule [...] discussed possible side effects to this medication. BICS INSTRUCTOR documented in this encounter Progress Notes Selma [...] Disease) ??? Obesity ??? Family History of [place] (Myocardial Infarction) ??? Cervical Pain ??? Insomnia [...] ??? Cardiovascular Mother [place] age 72 ??? Cardiovascular Father [place] early 40s, subsequent bipass ??? Diabetes Mother [...] (QUADRIVALENT W/PRESERVATIVES) - Seasonal Injectionable Immunization Administration [45235] 5. Need for prophylactic vaccination against Streptococcus [...] effects to this medication. Selma Good NP [facility] Injectable Influenza Immunization Documentation 1. [...] the person to be vaccinated ever had Guillain-Sylvester syndrome? No Form completed by self Form reviewed by Charlotte Mark CMA([facility]) BICS INSTRUCTOR documented in this encounter Nursing Notes Charlotte [...] completed using cuff size: regular Charlotte Mark CMA(AANY) BICS INSTRUCTOR documented in this encounter Plan of [...] hyperlipidemia documented in this encounter Care Teams Brand Ambassadors Promotional Sales Relationship Specialty Start Date End Date Danilo-Selma Mccoy, SHIPPING/RECEIVING CLERK ORDER TRACER PCP - General 04/09/08 04/07/15 1180 [facility] [place] [address] documented as of this encounter
--- OUTSIDE RECORDS SUMMARY | 2022-01-17 22:38 | XMS_ITS | Encounter Summary ---
:1965 Author Organization [facility] Address [address] [place] [address] Care Team Providers Name Role Phone Selma Good APRN [facility] Primary Care Provider [phone] Reason for Visit Reason Comments Anxiety Depression Encounter Details Date Type Department Care Team Description 06/09/2014 Office Visit [facility] Florentino, Insomnia (P rimary Dx); Pino Angeles APRN Migraine headache; [address] [facility] Type 2 diabetes, HbA1C goal < 7% (H); [place] [phone] 3300 [facility] Hyperlipidemia LDL goal <100 ; [phone] [facility] Hypertension goal BP (blood pressure) < 130/80; [place] [address] Major depressive disorder, recurrent (H) ; [phone] Anxiety; (Work) OME (otitis media with effusion), [...] How often do you attend christian or yarsani Patient refused 08/08/2019 services? Do [...] Comments Blood Pressure 90/66 06/09/2014 9:31 AM COLLISION WORKER Pulse 80 06/09/2014 9:31 AM COLLISION WORKER Temperature 36 ??C (96.8 ??F) 06/09/2014 9:31 AM COLLISION WORKER Respiratory Rate 16 06/09/2014 9:31 AM COLLISION WORKER Oxygen Saturation - - Inhaled Oxygen Concentration - - Weight 68.7 kg (151 lb 6.4 oz) 06/09/2014 9:31 AM COLLISION WORKER Height - - Body Mass Index 27.69 10/27/2013 8:53 AM CDT documented in this encounter Patient Instructions Patient InstructionsSelma Good NP - 06/09/2014 9:51 AM COLLISION WORKER Restart the simvastatin and we can repeat this lab in about 2 months. Your BP is excellent today so you can continue to be OFF lisinopril. Let's increase the amitriptyline to a total of 40 mg at bedtime. RETURN TO CLINIC 1 month. ISION WORKER documented in this encounter Progress Notes Selma [...] HELGA-7 SCORE 04/29/2014 Total Score 5 PHQ-9 Slovak PHQ-9 Any Language GAD7 At last visit, [...] Disease) ??? Obesity ??? Family History of [place] (Myocardial Infarction) ??? Cervical Pain ??? Insomnia [...] Relation Age of Onset ??? Cardiovascular Mother [place] age 72 ??? Cardiovascular Father [place] early 40s, subsequent bipass ??? Diabetes Mother [...] TO CLINIC 1 month. Selma Good NP [facility] ISION WORKER documented in this encounter Nursing Notes Charlotte [...] using cuff size: regular Charlotte Mark CMA(AAMA) ISION WORKER documented in this encounter Plan of [...] ral documented in this encounter Care Teams Freelance Court Reporter Relationship Specialty Start Date End Date Danilo-Selma Mccoy, PLANOGRAPH OPERATOR CARBIDE POWDER PROCESSOR PCP - General 04/09/08 04/07/[address] [facility] [place] [address] documented as of this encounter
--- OUTSIDE RECORDS SUMMARY | 2022-01-17 22:38 | XMS_ITS | Encounter Summary ---
:1965 Author Organization [facility] Address [address] [place] [address] Care Team Providers Name Role Phone Selma Good APRN INTERNAL GRINDER TENDER Primary Care Provider [phone] Encounter Details Date Type Department Care Team Description 08/25/2013 Orders Only [facility] Eag an Screen for colon cancer [address] [place] [address] Social History Tobacco Use Types Packs/Day [...] How often do you attend presybeterian or roman catholic Patient refused 08/08/2019 services? [...] logist Time Signature Occult Blood Negative NEG [facility] Scn [facility] Specimen Anatomical Collection Method Collection Time Receive d Time (Source) Location / / Volume Laterality Stool specimen 08/21/2013 9:00 AM 014 (specimen) CDT 10:41 AM CDT Selma Good APRN INTERNAL GRINDER TENDER LAB - STOOLS ORDERABLES Performing Organization Address City/State/ZIP Code Phon e Number [facility] [address] [place], [place] [id number] [place] [address] LABS documented in this encounter Visit Diagnoses Diagnosis Screen for colon cancer Special screening for malignant neoplasm s, colon documented in this encounter Care Teams Recyclable Materials Collector Relationship Specialty Start Date End Date Danilo-Selma Mccoy, CLINICAL EDUCATION MANAGER INTERNAL GRINDER TENDER PCP - General 04/09/08 04/07/[address] [facility] [address] [place], [place] [address] documented as of this encounter
--- OUTSIDE RECORDS SUMMARY | 2022-01-17 22:38 | XMS_ITS | Encounter Summary ---
:1965 Author Organization [facility] Address [address] [place] [address] Care Team Providers Name Role Phone Selma Good APRN MICROSTRATEGY ARCHITECT DEVELOPER Primary Care Provider [phone] Reason for Visit Reason Onset Date Comments Panel Management 08/11/2014 Encounter Details Date Type Department Care Team Description 08/11/2014 Telephone [facility] Selma Hodges Panel Management [address] [facility] J, SEAN MICROSTRATEGY ARCHITECT DEVELOPER [place] [address] [facility] [phone] [facility] [place] [address] (Wo rk) Social History [...] How often do you attend baptism or tenriism Patient refused 08/08/2019 services? Do [...] for the very basics like Not h zrudo at all 08/08/2019 food, housing, medical care, [...] Review Date of last visit with a [facility] provider: KATHY on 06-09-14. Date of next visit with a [place] provider: None. Problem List Patient Active Problem List Diagnosis ??? Migraine headache ??? GERD (Gastroesophageal Reflux Disease) ??? Obesity ??? Family History of [place] (Myocardial Infarction) ??? Cervical Pain ??? Insomnia [...] Indicate fasting or not fasting. Charlotte Mark CMA(AAVA) OR COST ESTIMATOR documented in this encounter Plan of Treatment Not on filedocumented as of this encounter Visit Diagnoses Not on filedocumented in this encounter Care Teams Zipper Measurer Relationship Specialty Start Date End Date Selma Good APRN MICROSTRATEGY ARCHITECT DEVELOPER PCP - General 04/09/08 04/07/15 [address] [facility] [place] [address] documented as of this encounter
--- OUTSIDE RECORDS SUMMARY | 2022-01-17 22:38 | XMS_ITS | Encounter Summary ---
:1965 Author Organization [facility] Address [address] [place] [address] Care Team Providers Name Role Phone Selma Good APRN JAIL KEEPER Primary Care Provider [phone] Reason for Visit Reason Onset Date Comments Refill Request 05/05/2014 Accu-Chek multi Clix lancets Encounter Details Date Type Department Care Team Description 05/05/2014 Refill [facility] Eag Selma Anthony Refill Request 1440 [employer] [facility] SEAN Angeles CNP (Accu-Chek multi Clix [place] [phone] [place] [address] [facility]) [phone] [facility] [place] [address] (Wo rk) Social [...] How often do you attend mandaen or anabaptism Patient refused 08/08/2019 services? Do you belong to any clubs or organizations such as No 08/08/2019 mandaen groups, unions, [employer]Aura [employer] or athletic groups, or school groups? How [...] refilled per RN susy. Iain Barone RN ER TUBE REAMER documented in this encounter Plan of Treatment Not on filedocumented as of this encounter Visit Diagnoses Diagnosis Type 2 diabetes, HbA1c goal < 7% (H) - P rimary Type II or unspecified type diabetes sukhdev litus without mention of complication, not stated as uncontrolled documented in this encounter Care Teams Blogs Manager Relationship Specialty Start Date End Date Danilo-Selma Mccoy, NURSING SPECIALIST JAIL KEEPER PCP - General 04/09/08 04/07/15 [address] [facility] [place] [address] documented as of this encounter
--- OUTSIDE RECORDS SUMMARY | 2022-01-17 22:38 | XMS_ITS | Encounter Summary ---
:1965 Author Organization [facility] Address [address] [place] [address] Care Team Providers Name Role Phone Selma Good APRN COMMERCIAL LINES ACCOUNT ASSISTANT Primary Care Provider [phone] Reason for Visit Reason Onset Date Comments Panel Management 07/07/2013 Encounter Details Date Type Department Care Team Description 07/07/2013 Telephone [facility] Selma Hodges Panel Management [address] [facility] J, SEAN COMMERCIAL LINES ACCOUNT ASSISTANT [place] [address] [facility] [phone] [facility] [place] [address] (Wo rk) Social [...] How often do you attend islam or judaism Patient refused 08/08/2019 services? Do [...] in one month if FIT not recd. [facility] Telephone Encounter - Charlotte Mark - 07/07/2013 4:54 PM CST Panel Management Review Date of last visit with a [facility] provider: KATHY on 05-30-13. Date of next visit with a [facility] provider: None. Problem List Patient Active Problem List Diagnosis ??? Migraine headache ??? GERD (Gastroesophageal Reflux Disease) ??? Obesity ??? Family History of [place] (Myocardial Infarction) ??? Cervical Pain ??? Insomnia [...] fasting or not fasting. Charlotte Mark CMA(AAMA) [facility] documented in this encounter Plan of Treatment Not on filedocumented as of this encounter Visit Diagnoses Diagnosis Screening for malignant neoplasm of the rectum - Primary documented in this encounter Care Teams Clinical Practice Consultant Relationship Specialty Start Date End Date Selma Good APRN COMMERCIAL LINES ACCOUNT ASSISTANT PCP - General 04/09/08 04/07/15 4[address] [facility] [place] [address] documented as of this encounter
--- OUTSIDE RECORDS SUMMARY | 2022-01-17 22:38 | XMS_ITS | Encounter Summary ---
:1965 Author Organization [facility] Address [address] [place] [address] Care Team Providers Name Role Phone Selma Good APRN, CNP Primary Care Provider [phone] Reason for Visit Reason Onset Date Comments Refill Request 04/23/2014 CITALOPRAM 20MG Encounter Details Date Type Department Care Team Description 04/23/2014 Refill [facility] Selma Hodges Refill Request [address] SEAN Angeles CNP (CITALOPRAM 20MG) [place] [phone] [place] [address] [facility] [place] [address] (Wo rk) Social [...] How often do you attend restorationism or pentecostal Patient refused 08/08/2019 services? Do [...] Keyona Salcido RN - 04/24/2014 12:39 PM HOEING ROW BOSS Spoke to pharmacist- pt still has 30 left to fill. Removing med request. Keyona Salcido RN NG ROW BOSS Telephone Encounter - Day Greene RN - [...] no active plan Please advise on refill Day Greene RN, BSN PHQ-9 (scale: 0 to 3) 04/23/2014 No interest in doing things 1 Feeling Depressed 1 Trouble sleeping 3 Tired / No energy 1 No appetite or over-eating 1 Feeling bad about self 1 Trouble concentrating 0 Moving slow or restless 1 Suicidal thoughts 1 TOTAL SCORE-----> 10 NG ROW BOSS Telephone Encounter - Marisa Matthew - 04/23/2014 1:10 PM CST Refill request for: CITALOPRAM 20 mg Last prescribed by provider: Date: 03/25/2014 Quantity 120 w/ 0 refills Last filled through pharmacy: Date: Pharmacy Comments: LUZ ELENA Matthew RT(R) NG ROW BOSS documented in this encounter Plan of Treatment Not on filedocumented as of this encounter Visit Diagnoses Diagnosis Major depressive disorder, recurrent (H) Major depressive disorder, recurrent epi sode, unspecified documented in this encounter Care Teams Slot Attendant Relationship Specialty Start Date End Date Selma Good APRN OPHTHALMIC PATHOLOGIST PCP - General 04/09/08 04/07/[address] [facility] [address] [place], [place] [address] documented as of this encounter
--- OUTSIDE RECORDS SUMMARY | 2022-01-17 22:38 | XMS_ITS | Encounter Summary ---
:1965 Author Organization [facility] Address [address] [place] [address] Care Team Providers Name Role Phone Selma Good APRN BACK TACKER Primary Care Provider [phone] Encounter Details Date Type Department Care Team Description 08/10/2014 Orders Only [facility] Eag an Type 2 diabetes, HbA1C goal < 7% (H); [address] [employer] Hyperlipidemia LDL goal <100 ; [place] [address] Hypertension goal BP (blood pressure) < 130/80 [...] How often do you attend uatsdin or yazidism Patient refused 08/08/2019 services? Do [...] 2 diabete s, Results for this QUANTITATIVE DADO OPERATOR HbA1C goal < 7% (H) procedure are in Hyperlipidemia LDL the [facility] ts goal <100 section. Hypertension goal BP (blood pressure) < 130/80 LIPID REFLEX TO Routine 08/10/2014 8:56 AM Type 2 diabetes, Re sults for this DIRECT LDL PANEL DADO OPERATOR HbA1C goal < 7% (H) procedure are in Hyperlipidemia LDL the [facility] ts goal <100 section. Hypertension goal BP (blood pressure) < 130/80 documented in this encounter Results Microalbumin quantitative random urine (08/10/2014 8:57 AM DADO OPERATOR) [facility] Method Time Signature Creatinine 41 mg/dL [place] Urine [facility] Albumin Urine <5 mg/L [place] mg/L [facility] Albumin Urine Unable to calculate due to low value 0 - 25 [place] mg/g Cr Effective 01/07/2014, the re ference range for this assay has changed to reflect mg/g Cr [facility] new instrumentation/methodology. HOSPITAL Specimen Anatomical Collection Method Collection Time Receive d Time (Source) Location / / Volume Laterality Urine specimen 08/10/2014 8:57 AM 015 8:58 (specimen) DADO OPERATOR AM DADO OPERATOR Selma Good APRN BACK TACKER LAB - URINE ORDERABLES Performing Organization Address City/State/ZIP Code Phon e Number [facility] [address] [place] [address] [facility] [address] [place] [address] [facility] [address] [place], [place] [address] [facility] Lipid panel reflex to direct LDL (08/10/2014 8:56 AM DADO OPERATOR) P athologist Signature Cholesterol 153 <200 mg/dL [facility] Comment: LDL Cholesterol is the primary guide to therapy. The NCEP recommends further evaluation of: patients with cholesterol greater than 200 mg/dL if additional risk facto rs are present, cholesterol greater than 240 mg/dL, triglycerides greater than 1 50 mg/dL, or HDL less than 40 mg/dL. Triglycerides 79 0 - 150 mg/dL [place] CLI NICS [facility] HDL Cholesterol 61 >50 mg/dL [place] CLINI CS [facility] LDL Cholesterol Calculated 76 0 - 129 mg/dL [facility] Comment: LDL Cholesterol is the primary guide to therapy: LDL-cholesterol goal in high risk patients is <100 mg/dL and in very high risk patients is <70 mg/dL. VLDL-Cholesterol 16 0 - 30 mg/dL [place] Aleyda COUGHLIN [facility] Cholesterol/HDL Ratio 2.5 0.0 - 5.0 [facility] Specimen Anatomical Collection Method Collection Time Receive d Time (Source) Location / / Volume Laterality Blood specimen 08/10/2014 8:56 AM 015 8:57 (specimen) DADO OPERATOR AM DADO OPERATOR Selma Good APRN, CNP LAB - BLOOD ORDERABLES Performing Organization Address City/State/ZIP Code Phon e Number [facility] [address] [place] [address] documented in this encounter Visit Diagnoses Diagnosis Type 2 diabetes, HbA1c goal < 7% (H) Type II or unspecified type diabetes sukhdev litus without mention of complication, not stated as uncontrolled Hyperlipidemia LDL goal <100 Other and unspecified hyperlipidemia Hypertension goal BP (blood pressure) < 130/80 Unspecified essential hypertension documented in this encounter Care Teams Overhead Cleaner Maintainer Relationship Specialty Start Date End Date Selma Good APRN CNP PCP - General 04/09/08 04/07/15 68[address] [facility] [place] [address] documented as of this encounter
--- OUTSIDE RECORDS SUMMARY | 2022-01-17 22:38 | XMS_ITS | Encounter Summary ---
:1965 Author Organization [facility] Address [address] [place] [address] Care Team Providers Name Role Phone Selma Good APRN GRAIN RECEIVER Primary Care Provider [phone] Reason for Visit Reason Onset Date Comments Refill Request 04/11/2014 ACCU CHEK test strp Encounter Details Date Type Department Care Team Description 04/11/2014 Refill [facility] Eag Selma Anthony Refill Request (ACCU 1440 [facility] J, SEAN GRAIN RECEIVER CHEK test strp) [place] [address] [facility] [phone] [facility] [place] [id number] (Wo rk) Social History Tobacco Use Types [...] How often do you attend alevism or baptist Patient refused 08/08/2019 services? Do [...] per Medication Refill Protocol. Bambi Morales RN ISION AGRONOMIST Telephone Encounter - Tima Melchor - 04/11/2014 [...] uncontrolled documented in this encounter Care Teams Construction Job Titles Relationship Specialty Start Date End Date Danilo-Selma Mccoy, WOOD PLANER GRAIN RECEIVER PCP - General 04/09/08 04/07/15 3[address] [facility] [place] [address] documented as of this encounter
--- OUTSIDE RECORDS SUMMARY | 2022-01-17 22:38 | XMS_ITS | Encounter Summary ---
:1965 Author Organization [place] Address [address] [place] [address]. [place] [address] Care Team Providers Name Role Phone Selma Good APRN [facility] Primary Care Provider Reason for Referral Consultation - Closed Specialty Diagnoses / Procedures Referred By Contact Refer red To Contact Diagnoses Dizziness Selma Good [facility] ROBOTIC WELD TECHNICIAN [address] [place] [phone] [place] [id number] Referral ID Status Reason Start Date Expiration Date Visits Requ ested Visits Authorized [id number] Closed 05/30/2013 11/26/2013 1 1 L OPERATIONS TECHNICIAN Reason for Visit Reason Comments Diabetes Encounter Details Date Type Department Care Team Description 05/30/2013 Office Visit [facility] Florentino, Type 2 diab etes, HbA1C goal < 7% (H) (Primary Dx); Pino Angeles APRN Screen for colon cancer; [address] [facility] Screening for diabetic retinopathy; [place] [phone] [place] [address] Screening for diabetic perip heral neuropathy; [phone] [facility] Need for prophylactic vaccination and in oculation against influenza; [place] [address] Hyperlipidemia LDL goal <100; [phone] GERD (gastroeso phageal reflux disease); (Work) Hypertension goal BP (blood pressure) < 130/80; [phone] Fibromyalgia; (Fax) Migraine headac he; Obesity; Major [...] How often do you attend moravian or hinduism Patient refused 08/08/2019 services? Do [...] Comments Blood Pressure 90/56 05/30/2013 1:02 PM FINAL OPERATIONS TECHNICIAN Pulse 68 05/30/2013 1:02 PM FINAL OPERATIONS TECHNICIAN Temperature 36.7 ??C (98.1 ??F) 05/30/2013 1:02 PM FINAL OPERATIONS TECHNICIAN Respiratory Rate 16 05/30/2013 1:02 PM FINAL OPERATIONS TECHNICIAN Oxygen Saturation 98% 05/30/2013 1:02 PM FINAL OPERATIONS TECHNICIAN Inhaled Oxygen Concentration - - Weight 67.9 kg (149 lb 11.2 oz) 05/30/2013 1:02 PM FINAL OPERATIONS TECHNICIAN Height 157.5 cm (5' 2) 05/30/2013 1:02 PM FINAL OPERATIONS TECHNICIAN Body Mass Index 27.38 05/30/2013 1:02 PM FINAL OPERATIONS TECHNICIAN documented in this encounter Patient Instructions Patient InstructionsSelma Good NP - 05/30/2013 1:27 PM FINAL OPERATIONS TECHNICIAN We'll check your labs to find explanation for the dizziness. If they are normal, I'd like you to schedule an appointment with ENT. [facility] [phone] In the mean time, try the nasal spray to see if it helps. L OPERATIONS TECHNICIAN documented in this encounter Progress Notes [...] / Panic / Manic symptoms: No PHQ-9 Nicaraguan PHQ-9 Any Language ?? Amount of exercise [...] Disease) ??? Obesity ??? Family History of [place] (Myocardial Infarction) ??? Cervical Pain ??? Insomnia [...] against influenza Comment: Plan: ADMIN VACCINE, FIRST [25528], C FLU VACCINE, 3 YRS +, IM (QUADRIVALENT NO PRESERVATIVES) 272.4 Hyperlipidemia LDL goal <100 Comment: Plan: simvastatin (ZOCOR) 20 MG tablet 530.81 GERD (gastroesophageal reflux disease) Comment: Plan: omeprazole (PRILOSEC) 20 MG capsule 401.9 Hypertension goal BP (blood pressure) < 130/80 Comment: Plan: lisinopril (PRINIVIL,ZESTRIL) 5 MG tablet 729.1 Fibromyalgia Comment: Plan: DEPRESSION ACTION PLAN (DAP) Order [[id number]], DULoxetine (CYMBALTA) 30 MG capsule 346.90 Migraine [...] with ENT. [facility] [phone] In the mean time, try the nasal spray to see if it helps. Selma Good NP, CLINICAL PHYSICIAN ASSISTANT [facility] OPERATIONS TECHNICIAN documented in this encounter Nursing Notes 05/30/2013 [...] Name Type Priority Associated Diagnoses [facility] Referral Routine Dizziness Orde red: 05/30/2013 documented as of this encounter Procedures Procedure Name Priority Date/Time Associated Diagnosis Comme nts ALBUMIN RANDOM URINE Routine 05/30/2013 1:50 PM Type 2 diabete s, Results for this QUANTITATIVE FINAL OPERATIONS TECHNICIAN HbA1C goal < 7% (H) procedur e are in the results section. VITAMIN D DEFICIENCY Routine 05/30/2013 1:49 PM Dizziness R esults for this SCREENING FINAL OPERATIONS TECHNICIAN procedure are i n the results section. TSH WITH FREE T4 Routine 05/30/2013 1:49 PM Dizziness Resul ts for this REFLEX FINAL OPERATIONS TECHNICIAN procedure are i n the results section. HEMOGLOBIN A1C Routine 05/30/2013 1:49 PM Type 2 diabetes, Res ults for this FINAL OPERATIONS TECHNICIAN HbA1C goal < 7% (H) procedur e are in the results section. CBC WITH PLATELETS Routine 05/30/2013 1:49 PM Dizziness Res ults for this FINAL OPERATIONS TECHNICIAN procedure are i n the results section. C FOOT EXAM Routine 05/30/2013 1:27 PM Screening for FINAL OPERATIONS TECHNICIAN diabetic peripheral neuropathy EYE EXAM Routine 05/30/2013 1:27 PM Screening for (SIMPLE-NONBILLABLE) FINAL OPERATIONS TECHNICIAN diabetic retinopathy documented in this encounter Results MICROALBUMIN QUANTITATIVE RANDOM URINE (05/30/2013 1:50 PM FINAL OPERATIONS TECHNICIAN) Component Value Ref Test Analysis Performed At Patholo gist Range Method Time Signature Creatinine 146 mg/dL [facility] Urine [facility] Albumin Urine <5 mg/L [facility] mg/L Urine Microalbumin lowest re portable value has been changed from 2 mg/L to 5 [facility] mg/L due to a methodology change on September. CAMPUS LABS Albumin Urine Unable to 0 - 25 [facility] mg/g Cr calculate mg/g Cr [facility] Specimen Anatomical Collection Method Collection Time Receive d Time (Source) Location / / Volume Laterality Urine specimen 05/30/2013 1:50 PM 013 1:52 (specimen) FINAL OPERATIONS TECHNICIAN PM FINAL OPERATIONS TECHNICIAN Selma Good APRN SWAGING MACHINE ADJUSTER LAB - URINE ORDERABLES Performing Organization Address City/State/ZIP Code Phon e Number [facility] [address] LABS (ABNORMAL) Vitamin D Deficiency (05/30/2013 1:49 PM FINAL OPERATIONS TECHNICIAN) athologist Signature Vitamin D 27 (L) 30 - 75 [facility] Deficiency ug/L [facility] LAB[facility] Comment: Season, race, dietary intake, and treatm ent affect the concentration of 53-vfwikfb-Ekhrdgy D. Values may decrea se during winter [...] questions, pl ease contact the laboratory at [phone]. Specimen Anatomical Collection Method Collection Time Receive d Time (Source) Location / / Volume Laterality Blood specimen 05/30/2013 1:49 PM 013 1:51 (specimen) FINAL OPERATIONS TECHNICIAN PM FINAL OPERATIONS TECHNICIAN Selma Good APRN SWAGING MACHINE ADJUSTER LAB - BLOOD ORDERABLES Performing Organization Address City/State/ZIP Code Phon e Number [facility] [address] [place] [address] [facility] CBC with platelets (05/30/2013 1:49 PM FINAL OPERATIONS TECHNICIAN) athologist Signature WBC 7.0 4.0 - 11.0 [...] specimen 05/30/2013 1:49 PM 013 1:51 (specimen) FINAL OPERATIONS TECHNICIAN PM FINAL OPERATIONS TECHNICIAN Selma Good APRN, CNP LAB - BLOOD ORDERABLES Performing Organization Address City/State/ZIP Code Phon e Number [facility] [address] [place] [address] TSH with free T4 reflex (05/30/2013 1:49 PM FINAL OPERATIONS TECHNICIAN) athologist Signature TSH 1.68 0.4 - 5.0 [facility] mU/L [place] Specimen Anatomical Collection Method Collection Time Receive d Time (Source) Location / / Volume Laterality Blood specimen 05/30/2013 1:49 PM 013 1:51 (specimen) FINAL OPERATIONS TECHNICIAN PM FINAL OPERATIONS TECHNICIAN Selma Good APRN, CNP LAB - BLOOD ORDERABLES Performing Organization Address City/State/ZIP Code Phon e Number [facility] [address] [place] [address] [facility] [address] [place], [place] [address] HEMOGLOBIN A1C (05/30/2013 1:49 PM FINAL OPERATIONS TECHNICIAN) P athologist Signature Hemoglobin A1C 5.6 4.3 - 6.0 [facility] [place] Specimen Anatomical Collection Method Collection Time Receive d Time (Source) Location / / Volume Laterality Blood specimen 05/30/2013 1:49 PM 013 1:51 (specimen) FINAL OPERATIONS TECHNICIAN PM FINAL OPERATIONS TECHNICIAN Selma Good APRN, CNP LAB - BLOOD ORDERABLES Performing Organization Address City/State/ZIP Code Phon e Number [facility] [place] [address] [facility] [place] [phone] documented in this encounter Visit Diagnoses Diagnosis [...] left documented in this encounter Care Teams Software Writer Relationship Specialty Start Date End Date Selma Good APRN CNP PCP - General 04/09/08 04/07/15 [address] [facility] [place] [id number] documented as of this encounter
--- OUTSIDE RECORDS SUMMARY | 2022-01-17 22:38 | XMS_ITS | Encounter Summary ---
:1965 Author Organization [facility] Address [address] [place] [address] Care Team Providers Name Role Phone Selma Good APRN MACHINE PULLER AND LASTER Primary Care Provider [phone] Reason for Visit Reason Onset Date Comments Refill Request 05/19/[address] 30 MG Encounter Details Date Type Department Care Team Description 05/19/2014 Refill [facility] Selma Hodges Refill Request 1440 [employer] JSEAN CNP (DULOXETINE HCL DR 30MG) [place] [phone] [facility] [phone] [facility] [place] [address] (Wo rk) Social [...] How often do you attend scientology or sabianist Patient refused 08/08/2019 services? Do [...] Kallie Golden RN - 05/26/2014 9:41 AM DBAS Addended by: KALLIE GOLDEN on: 05/26/2014 09:41 AM Modules accepted: Orders Telephone Encounter - Kallie Golden RN - [...] 03/25/14 86/66 12/17/13 90/50 ALT 24 10/27/2013 Telephone Encounter - Mignon Beatty RN - 05/19/2014 3:33 PM CST Filled 04/28/14 for 90 days with refills Mignon Beatty RN Telephone Encounter - Eri Middleton - 05/19/2014 8:38 AM CST Refill request for: DULOXETINE 30 mg Last prescribed by provider: Date: 10/27/2013 Quantity 180 w/ 1 refills Last filled through pharmacy: Date: 02/19/2014 Pharmacy Comments: LUZ ELENA Middleton RT(R) documented in this encounter Plan of Treatment Not on filedocumented as of this encounter Visit Diagnoses Diagnosis Fibromyalgia Mylagia and myositis, unspecified documented in this encounter Care Teams Children'S Entertainer Relationship Specialty Start Date End Date Danilo-Selma Mccoy, SWEATBAND FLANGER MACHINE PULLER AND LASTER PCP - General 04/09/08 04/07/15 [address] [facility] [address] [place], [place] [address] documented as of this encounter
--- OUTSIDE RECORDS SUMMARY | 2022-01-17 22:38 | XMS_ITS | Encounter Summary ---
:1965 Author Organization [facility] Address [address] [place] [address] Care Team Providers Name Role Phone Selma Good APRN OFFICE PROFESSIONALS Primary Care Provider [phone] Reason for Visit Reason Comments Diabetes Encounter Details Date Type Department Care Team Description 10/27/2013 Office Visit [facility] Florentino, Type 2 diab etes, HbA1C goal < 7% (H) (Primary Dx); Pino Angeles APRN Fibromyalgia; [address] [facility] OME (otitis media with effusion), bilate [place] [address] [facility] [phone] [facility] [place] [address] Social History Tobacco [...] How often do you attend presybeterian or bahai Patient refused 08/08/2019 services? Do [...] Relation Age of Onset ??? Cardiovascular Mother [place] age 72 ??? Cardiovascular Father [place] early 40s, subsequent bipass ??? Diabetes Mother [...] for follow up visit. Selma Good NP, UNDERWRITING CLERKS SUPERVISOR [facility] [place] documented in this encounter Nursing [...] Signature Hemoglobin A1C 6.0 4.3 - 6.0 [facility] Specimen Anatomical Collection Method Collection Time Receive d Time (Source) Location / / Volume Laterality Blood specimen 10/27/2013 8:57 AM 014 8:58 (specimen) CDT AM CDT Selma Good APRN OFFICE PROFESSIONALS LAB - BLOOD ORDERABLES Performing Organization Address City/State/ZIP Code Phon e Number [facility] [address] [place] [address] (ABNORMAL) Lipid panel reflex to direct LDL (10/27/2013 8:57 AM CDT) athologist Signature Cholesterol 106 <200 mg/dL [facility] Comment: LDL Cholesterol is the primary guide to therapy. The NCEP recommends further evaluation of: patients with cholesterol greater than 200 mg/dL if additional risk facto rs are present, cholesterol greater than 240 mg/dL, triglycerides greater than 1 50 mg/dL, or HDL less than 40 mg/dL. Triglycerides 39 0 - 150 mg/dL [facility] [place] HDL Cholesterol 29 (L) >50 mg/dL [facility] [place] LDL Cholesterol Calculated 69 0 - 129 mg/dL [facility] Comment: LDL Cholesterol is the primary guide to therapy: LDL-cholesterol goal in high risk patients is <100 mg/dL and in very high risk patients is <70 mg/dL. VLDL-Cholesterol 8 0 - 30 mg/dL [facility] [place] Cholesterol/HDL Ratio 3.7 0.0 - 5.0 [facility] Specimen Anatomical Collection Method Collection Time Receive d Time (Source) Location / / Volume Laterality Blood specimen 10/27/2013 8:57 AM 014 8:58 (specimen) CDT AM CDT Selma Good APRN [employer]ESSION[employer] LAB - BLOOD ORDERABLES Performing Organization Address City/State/ZIP Code Phon e Number [facility] [place] [address] [place] [address] (ABNORMAL) Comprehensive metabolic panel (10/27/2013 8:57 AM CDT) athologist Signature Sodium 143 133 - 144 [place] mmol/L [facility] Potassium 3.8 3.4 - 5.3 [place] mmol/L [facility] Chloride 107 94 - 109 [place] mmol/L [facility] Carbon Dioxide 26 20 - 32 [place] mmol/L [facility] Anion Gap 10 6 - 17 [place] mmol/L [facility] Glucose 100 (H) 60 - 99 [place] mg/dL [facility] Comment: Fasting specimen Urea Nitrogen 14 7 - 30 mg/dL [facility] [place] Creatinine 0.64 0.52 - 1.04 mg/dL [facility] [place] GFR Estimate >90 >60 mL/min/1.7m2 [facility] [place] GFR Estimate If Black >90 >60 mL/min/1.7m2 [facility] [place] Calcium 8.9 8.5 - 10.4 mg/dL [facility] [place] Bilirubin Total 0.4 0.2 - 1.3 mg/dL [facility] [place] Albumin 3.4 (L) 3.9 - 5.1 g/dL [facility] [place] Comment: Reference range changed on 02/10. Protein Total 6.5 (L) 6.8 - 8.8 g/dL [facility] Comment: As of 07, reference range reflects plasma specimen type. Alkaline Phosphatase 86 40 - 150 U/L [facility] [place] ALT 24 0 - 50 U/L [facility] ALESSANDRO AST 20 0 - 45 U/L [facility] ALESSANDRO Specimen Anatomical Collection Method Collection Time Receive d Time (Source) Location / / Volume Laterality Blood specimen 10/27/2013 8:57 AM 014 8:58 (specimen) CDT AM CDT Selma Good APRN, CNP LAB - BLOOD ORDERABLES Performing Organization Address City/State/ZIP Code Phon e Number [facility] 14[address] [facility] [place] [id number] documented in this encounter Visit Diagnoses Diagnosis Type 2 diabetes, HbA1c goal < 7% (H) - P rimary Type II or unspecified type diabetes sukhdev litus without mention of complication, not stated as uncontrolled Fibromyalgia Mylagia and myositis, unspecified OME (otitis media with effusion), bilate ral documented in this encounter Care Teams Faceter Relationship Specialty Start Date End Date Selma Good APRN OFFICE PROFESSIONALS PCP - General 04/09/08 04/07/15 [address] [facility] [place] [address] documented as of this encounter
--- OUTSIDE RECORDS SUMMARY | 2022-01-17 22:38 | XMS_ITS | Encounter Summary ---
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 Insurance changin g June 11, 2012 Encounter Details Date Type Department Care Team Description 05/29/2012 Office Visit [facility] Florentino Type 2 diab etes, HbA1C goal < 7% (H) (Primary Dx); Pino Angeles APRN Migraine headache; [address] [place] [facility] Cervical pain; [place] [phone] [address] [facility] Hypertension goal BP (blood pressure) < 130/80; [phone] [facility] Hyperlipidemia LDL goal <100; [place] [address] GERD (gastroesophageal reflux disease); [phone] Breast cancer s creening; (Work) Need for [...] How often do you attend denominational or yarsani Patient refused 08/08/2019 services? Do you belong to any clubs or organizations such as No 08/08/2019 denominational groups, [place], fraClipyoo or athletic groups, or school groups? How [...] Comments Blood Pressure 90/61 05/29/2012 10:32 AM HEMODIALYSIS TECHNICIAN Pulse 73 05/29/2012 10:32 AM HEMODIALYSIS TECHNICIAN Temperature 37 ??C (98.6 ??F) 05/29/2012 10:32 AM HEMODIALYSIS TECHNICIAN Respiratory Rate - - Oxygen Saturation - - Inhaled Oxygen Concentration - - Weight 73.9 kg (163 lb) 05/29/2012 10:32 AM HEMODIALYSIS TECHNICIAN Height 157.5 cm (5' 2) 05/29/2012 10:32 AM HEMODIALYSIS TECHNICIAN Body Mass Index 29.81 05/29/2012 10:32 AM HEMODIALYSIS TECHNICIAN documented in this encounter Patient Instructions Patient InstructionsSelma Good NP - 05/29/2012 11:08 AM HEMODIALYSIS TECHNICIAN Schedule a lab only fasting appointment [...] that could help with mood and pain. DIALYSIS TECHNICIAN documented in this encounter Progress Notes [...] list, Allergies, and Medical/Social/Surgical histories reviewed in [facility] andupdated as appropriate. OBJECTIVE: Temp(Src) 98.6 ??F [...] that could help with mood and pain. 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 Insurance changing 2012 Initial BP 90/61 Pulse [...] nts MIGRAINE QUESTIONNAIRE Routine 05/28/2012 10:49 AM HEMODIALYSIS TECHNICIAN Migrain e headache documented in this [...] influenza documented in this encounter Care Teams Publications Editor Relationship Specialty Start Date End Date Danilo-Selma Mccoy, FREELANCE ART DIRECTOR WAITER AND CASHIER PCP - General 04/09/08 04/07/15 [address] [facility] [place] [id number] documented as of this encounter
--- OUTSIDE RECORDS SUMMARY | 2022-01-17 22:38 | XMS_ITS | Encounter Summary ---
:1965 Author Organization [facility] Address [address] [place] [address] Care Team Providers Name Role Phone Selma Good APRN ORDER ENTRY TECHNICIAN Primary Care Provider [phone] Encounter Details Date Type Department Care Team Description 06/05/2012 Orders Only [facility] Eag an Type 2 diabetes, HbA1C goal < 7% (H); [address] Hyperlipidemia LDL goal <100 [place] [phone] Social History Tobacco Use Types Packs/Day Years [...] How often do you attend sabianism or restorationism Patient refused 08/08/2019 services? Do [...] 2 diabete s, Results for this QUANTITATIVE REAL ESTATE FIRM MANAGER HbA1C goal < 7% (H) procedur e are in the results section. LIPID REFLEX TO DIRECT Routine 06/05/2012 7:48 AM Type 2 diabe shirley, Results for this LDL PANEL REAL ESTATE FIRM MANAGER HbA1C goal < 7% (H) procedure are in Hyperlipidemia LDL the resul ts goal <100 section. HEMOGLOBIN A1C Routine 06/05/2012 7:48 AM Type 2 diabetes, Res ults for this REAL ESTATE FIRM MANAGER HbA1C goal < 7% (H) procedur e are in the results section. COMPREHENSIVE Routine 06/05/2012 7:48 AM Type 2 diabetes, Resu lts for this METABOLIC PANEL REAL ESTATE FIRM MANAGER HbA1C goal < 7% (H) proce dure are in the results section. documented in this encounter Results (ABNORMAL) Comprehensive metabolic panel (06/05/2012 7:48 AM REAL ESTATE FIRM MANAGER) athologist Signature Sodium 141 133 - 144 [place] mmol/L [facility] Potassium 4.1 3.4 - 5.3 [place] mmol/L [facility] Chloride 103 94 - 109 [place] mmol/L [facility] Carbon Dioxide 22 20 - 32 [place] mmol/L [facility] Anion Gap 16 6 - 17 [place] mmol/L [facility] Glucose 123 (H) 60 - 99 [place] mg/dL [facility] Urea Nitrogen 16 5 - 24 [place] mg/dL [facility] Creatinine 0.75 0.52 - [facility] 1.04 mg/dL [facility] GFR Estimate 82 >60 [place] mL/min/1.7 [facility] m2 LAB GFR Estimate If >90 >60 [place] Black mL/min/1.7 [facility] m2 LAB Calcium 9.7 8.5 - 10.4 [place] mg/dL [facility] Bilirubin Total 0.6 0.2 - 1.3 [place] mg/dL [facility] Albumin 4.4 3.9 - 5.1 [place] g/dL [facility] Comment: Reference range changed on 02/10. Protein Total 7.5 6.8 - 8.8 g/dL [facility] Comment: As of 07, reference range reflects plasma specimen type. Alkaline Phosphatase 83 40 - 150 U/L [facility] ALT 28 0 - 50 U/L [facility] AST 19 0 - 45 U/L [facility] Specimen Anatomical Collection Method Collection Time Receive d Time (Source) Location / / Volume Laterality Blood specimen 06/05/2012 7:48 AM 012 7:53 (specimen) REAL ESTATE FIRM MANAGER AM REAL ESTATE FIRM MANAGER Selma Good APRN ORDER ENTRY TECHNICIAN LAB - BLOOD ORDERABLES Performing Organization Address City/State/ZIP Code Phon e Number [facility] [address] [place] [address] [facility] Microalbumin quantitative, random urine (06/05/2012 7:48 AM REAL ESTATE FIRM MANAGER) athologist Signature Creatinine 208 mg/dL [facility] Albumin Urine 13 mg/L [facility] mg/L [facility] Albumin Urine 6.25 0 - 25 [facility] mg/g Cr mg/g Cr CAMP[facility] LAB[facility] Specimen Anatomical Collection Method Collection Time Receive d Time (Source) Location / / Volume Laterality Urine specimen 06/05/2012 7:48 AM 012 7:53 (specimen) REAL ESTATE FIRM MANAGER AM REAL ESTATE FIRM MANAGER Selma Good APRN, CNP LAB - URINE ORDERABLES Performing Organization Address City/[facility]/ZIP Code Phon e Number [facility] [address] [place] [address] [facility] LAB[facility] (ABNORMAL) Lipid panel reflex to direct LDL (06/05/2012 7:48 AM REAL ESTATE FIRM MANAGER) athologist Signature Cholesterol 126 0 - 200 [facility] mg/dL CLINIC LAB Comment: LDL Cholesterol is the primary guide to therapy. The NCEP recommends further evaluation of: patients with cholesterol greater than 200 mg/dL if additional risk facto rs are present, cholesterol greater than 240 mg/dL, triglycerides greater than 1 50 mg/dL, or HDL less than 40 mg/dL. Triglycerides 84 0 - 150 mg/dL [facility] HDL Cholesterol 43 (L) 50 - 110 mg/dL [facility] LDL Cholesterol Calculated 66 0 - 129 mg/dL [facility] Comment: LDL Cholesterol is the primary guide to therapy: LDL-cholesterol goal in high risk patients is <100 mg/dL and in very high risk patients is <70 mg/dL. VLDL-Cholesterol 17 0 - 30 mg/dL [facility] Cholesterol/HDL Ratio 2.9 0.0 - 5.0 [facility] Specimen Anatomical Collection Method Collection Time Receive d Time (Source) Location / / Volume Laterality Blood specimen 06/05/2012 7:48 AM 012 7:53 (specimen) REAL ESTATE FIRM MANAGER AM REAL ESTATE FIRM MANAGER Selma Good APRN, CNP LAB - BLOOD ORDERABLES Performing Organization Address City/State/ZIP Code Phon e Number [facility] [address] [place] [address] [facility] Hemoglobin A1c (06/05/2012 7:48 AM REAL ESTATE FIRM MANAGER) athologist Signature Hemoglobin A1C 5.8 4.3 - 6.0 [facility] % [facility]INIC LAB Specimen Anatomical Collection Method Collection Time Receive d Time (Source) Location / / Volume Laterality Blood specimen 06/05/2012 7:48 AM 012 7:53 (specimen) REAL ESTATE FIRM MANAGER AM REAL ESTATE FIRM MANAGER Selma Good APRN, CNP LAB - BLOOD ORDERABLES Performing Organization Address City/State/ZIP Code Phon e Number [place] [id number] [facility] [place] [address] [facility] documented in this encounter Visit Diagnoses Diagnosis Type 2 diabetes, HbA1c goal < 7% (H) Type II or unspecified type diabetes sukhdev litus without mention of complication, not stated as uncontrolled Hyperlipidemia LDL goal <100 Other and unspecified hyperlipidemia documented in this encounter Care Teams Branch Administrator Relationship Specialty Start Date End Date Selma Good APRN CNP PCP - General 04/09/08 04/07/15 7850 [facility] [place] [address] documented as of this encounter
--- OUTSIDE RECORDS SUMMARY | 2022-01-17 22:38 | XMS_ITS | Encounter Summary ---
:1965 Author Organization [facility] Address [address] [place] [address] Care Team Providers Name Role Phone Selma Good APRN ANATOMIC PATHOLOGIST Primary Care Provider [phone] Reason for Visit Reason Onset Date Comments Refill Request 03/14/2013 test strips Encounter Details Date Type Department Care Team Description 03/14/2013 Refill [facility] Eag Selma Anthony Refill Request (test [address] [employer] J, HOT WOUND SPRING PRODUCTION SUPERVISOR ANATOMIC PATHOLOGIST strips) [place] [phone] 3934 [facility] [phone] [facility] [place] [address] (Wo rk) Social [...] How often do you attend advent or spiritism Patient refused 08/08/2019 services? Do [...] uncontrolled documented in this encounter Care Teams Manufacturing Supervisor Relationship Specialty Start Date End Date Danilo-Selma Mccoy, HOT WOUND SPRING PRODUCTION SUPERVISOR ANATOMIC PATHOLOGIST PCP - General 04/09/08 04/07/15 6316 [facility] [place] [id number] documented as of this encounter
--- OUTSIDE RECORDS SUMMARY | 2022-01-17 22:38 | XMS_ITS | Encounter Summary ---
:1965 Author Organization [facility] Address [address] [place] [address] Care Team Providers Name Role Phone Selma Good APRN DYE TUB OPERATOR Primary Care Provider [phone] Reason for Visit Reason Comments UTI Recheck Medication Encounter Details Date Type Department Care Team Description 02/07/2013 Office Visit [facility] [place]orent[place] UTI (lower urinary tract infection) (Primary Dx); [place] APRN Dysuria; [address] [employer] DYE TUB OPERATOR Nail fungus; [place] [phone] 50[address] [facility] Hypertension goal BP (blood pressure) < 130/80; [phone] [facility] DAVID Gilbert [id number] Social History Tobacco Use Types Packs/Day Years [...] How often do you attend mandaen or presybeterian Patient refused 08/08/2019 services? Do [...] underwear and pantyhose every day. Published by [employer]. This content is reviewed periodically and is subject to change as new health information becomes available. The information is intended to inform and educate and is not a replacement for medical evaluation, advice, diagnosis or treatment by a healthcare professional. Developed by Edith Felix RN, ND, and [employer] [facility]. ? 2009 [employer] [facility] and/or its affiliates. All Rights Reserved. Copyright [...] Disease) ??? Obesity ??? Family History of [place] (Myocardial Infarction) ??? Cervical Pain ??? Insomnia [...] Relation Age of Onset ??? Cardiovascular Mother [place] age 72 ??? Cardiovascular Father [place] early 40s, subsequent bipass ??? Diabetes Mother [...] underwear and pantyhose every day. Published by [employer]. This content is reviewed periodically and is subject to change as new health information becomes available. The information is intended to inform and educate and is not a replacement for medical evaluation, advice, diagnosis or treatment by a healthcare professional. Developed by Edith Felix RN, DAVID, and [employer]. ? 2009 [employer] and/or its affiliates. All Rights Reserved. Copyright ?? [employer] Systems 2010 Selma Good NP, ADMINISTRATIVE EXECUTIVE [facility] .soapo documented in this encounter Nursing Notes [...] Component Value Ref Test Analysis Performed At [facility] Method Time Signature Specimen Urine [facility] LAB Culture Micro 10,000 to 50,000 colonies/mL Mixed gram negative and positive jaylen [facility] Multiple species present, probable perineal contamination. MICROBIOLOGY Susceptibility testing not routinely done Micro Report FINAL 02/09/2013 [facility] Status MICROBIOLOGY Specimen Anatomical Collection Method Collection Time Receive d Time (Source) Location / / Volume Laterality Urine specimen 02/07/2013 4:40 PM 013 4:45 (specimen) CDT PM CDT Selma Good APRN DYE TUB OPERATOR LAB - MICRO GENERAL ORD ERABLES Performing Organization Address City/State/ZIP Code Phon e Number [address] [address] [facility] [address] [place] [address] [phone] [facility] MICROBIOLOGY (ABNORMAL) Urine Microscopic (02/07/2013 3:52 PM CDT) [facility] Method Time Signature WBC Urine 5-10 (A) 0 - 2 [facility] RBC Urine 2-5 (A) 0 - 2 [facility] Squamous Few FEW /LPF [place] Epithelial /LPF [facility] Urine LAB Bacteria Urine Few (A) NEG /HPF [facility] Mucous Urine Present (A) NEG /LPF [facility] Specimen Anatomical Collection Method Collection Time Receive d Time (Source) Location / / Volume Laterality 02/07/2013 3:52 PM 3 3:57 CDT PM CDT Selma Good APRN, CNP LAB - URINE ORDERABLES Performing Organization Address [facility]/ZIP [facility] Phon e Number [facility] [address] [place] [address] [facility] [address] [place] [address] (ABNORMAL) *UA reflex to Microscopic and Culture (02/07/2013 3:52 PM CDT) [facility] Method Time Signature Color Urine Yellow [facility] Appearance Urine Clear [facility] Glucose Urine Negative NEG mg/dL [facility] Bilirubin Urine Negative NEG [facility] Ketones Urine Negative NEG mg/dL [facility] Specific [place] 1.010 1.003 - [place] Urine 1.035 [facility] Blood Urine Moderate (A) NEG [facility] pH Urine 7.0 5.0 - 7.0 [place] pH [facility] Protein Albumin Negative NEG mg/dL [place] Urine [facility] Urobilinogen 0.2 0.2 - 1.0 [place] Urine EU/dL [facility] Nitrite Urine Negative NEG [facility] Leukocyte Trace (A) NEG [place] Esterase Urine [facility] Source Midstream [place] Urine [facility] Specimen Anatomical Collection Method Collection Time Receive d Time (Source) Location / / Volume Laterality Urine specimen 02/07/2013 3:52 PM 013 3:57 (specimen) CDT PM CDT Selma Good APRN, CNP LAB - URINE ORDERABLES Performing Organization Address City/State/ZIP Code Phon e Number [facility] 1440 [facility] [place] [phone] [facility] 1440 [facility] [place] [phone] documented in this encounter Visit Diagnoses Diagnosis UTI (lower urinary tract infection) - Pr imary Urinary tract infection, site not specif ied Dysuria Nail fungus Dermatophytosis of nail Hypertension goal BP (blood pressure) < 130/80 Unspecified essential hypertension Fibromyalgia Mylagia and myositis, unspecified documented in this encounter Care Teams Assistant Terminal Manager Relationship Specialty Start Date End Date Selma Good, SOCIAL SERVICES ASSISTANT DYE TUB OPERATOR PCP - General 04/09/08 04/07/15 3565 [facility] [place] [id number] documented as of this encounter
--- OUTSIDE RECORDS SUMMARY | 2022-01-17 22:38 | XMS_ITS | Encounter Summary ---
:1965 Author Organization [facility] Address [address] [place] [address] Care Team Providers Name Role Phone Selma Good APRN LEAD PAINTER Primary Care Provider [phone] Encounter Details Date Type Department Care Team Description 08/18/2012 Results Only [facility] Diego marshall MD Clinic [place] [address] [address] [facility] [address] [place] [address] [place] [address] [phone] Social History Tobacco Use Types Packs/Day Years [...] How often do you attend baptist or buddhism Patient refused 08/08/2019 services? Do you belong to any clubs or organizations such as [employer] 08/08/2019 baptist groups, unions, fraternal or athletic [...] on filedocumented in this encounter Care Teams Nanotechnology Engineering Technologist Relationship Specialty Start Date End Date Danilo-Selma Mccoy, CORRECTION OFFICER SUPERVISOR LEAD PAINTER PCP - General 04/09/08 04/07/[address] [facility] [address] [place], [place] [address] documented as of this encounter
--- OUTSIDE RECORDS SUMMARY | 2022-01-17 22:38 | XMS_ITS | Encounter Summary ---
:1965 Author Organization [facility] Address [address] [place] [address] Care Team Providers Name Role Phone Selma Good APRN, CNP Primary Care Provider [phone] Reason for Visit Reason Onset Date Comments Refill Request 06/23/2014 FLUTICASONE PROP 50M CG SPRAY Encounter Details Date Type Department Care Team Description 06/23/2014 Refill [facility] Eag Selma Anthony Refill Request [address] SEAN Angeles CNP (FLUTICASONE PROP 50MCG [place] [phone] 3305 [facility] SPRAY) [phone] [facility] DAVID [place] [phone] (Wo rk) Social History Tobacco Use Types [...] How often do you attend synagogue or advent Patient refused 08/08/2019 services? Do [...] Abigail Burciaga - 06/23/2014 3:26 PM CST YOSELNI 06-09-14 Filled PSO. Abigail Burciaga RN [employer] Telephone Encounter - Marisa Matthew - 06/23/2014 11:53 AM CST Refill request for: FLUTICASONE 50MCG SPRAY Last prescribed by provider: Date: 05/30/2013 Quantity 1 w/ 11 refills Last filled through pharmacy: Date: 05/25/2014 Pharmacy Comments: LUZ ELENA Matthew RT(R) [employer] documented in this encounter Plan of Treatment Not on filedocumented as of this encounter Visit Diagnoses Diagnosis OME (otitis media with effusion), left - Primary documented in this encounter Care Teams Analytical Engineer Relationship Specialty Start Date End Date Danilo-Selma Mccoy, BREEDING TECHNICIAN [employer] RE[employer] CAMERAMAN PCP - General 04/09/08 04/07/15 1415 [facility] [place] [id number] documented as of this encounter
--- OUTSIDE RECORDS SUMMARY | 2022-01-17 22:38 | XMS_ITS | Encounter Summary ---
:1965 Author Organization [facility] Address [address] [place] [address] Care Team Providers Name Role Phone Selma Good APRN [employer] Primary Care Provider [phone] Encounter Details Date Type Department Care Team Description 06/08/2014 Orders Only [facility] Eag an Hyperlipidemia LDL goal <100 1440 [facility] [address] Social History Tobacco Use Types Packs/Day [...] How often do you attend gnosticism or mandaeism Patient refused 08/08/2019 services? Do [...] goal Results for this DIRECT LDL PANEL MEDICAL PHYSIOLOGIST <100 procedure a re in the results section. documented in this encounter Results Lipid panel reflex to direct LDL (06/08/2014 8:40 AM MEDICAL PHYSIOLOGIST) P athologist Signature Cholesterol 197 <200 mg/dL [facility] Comment: LDL Cholesterol is the primary guide to therapy. The NCEP recommends further evaluation of: patients with cholesterol greater than 200 mg/dL if additional risk facto rs are present, cholesterol greater than 240 mg/dL, triglycerides greater than 1 50 mg/dL, or HDL less than 40 mg/dL. Triglycerides 77 0 - 150 mg/dL [facility] Comment: Fasting specimen HDL Cholesterol 57 >50 mg/dL [facility] LDL Cholesterol Calculated 125 0 - 129 mg/dL [facility] Comment: LDL Cholesterol is the primary guide to therapy: LDL-cholesterol goal in high risk patients is <100 mg/dL and in very high risk patients is <70 mg/dL. VLDL-Cholesterol 15 0 - 30 mg/dL [facility] Cholesterol/HDL Ratio 3.5 0.0 - 5.0 [facility] Specimen Anatomical Collection Method Collection Time Receive d Time (Source) Location / / Volume Laterality Blood specimen 06/08/2014 8:40 AM 014 8:45 (specimen) MEDICAL PHYSIOLOGIST AM MEDICAL PHYSIOLOGIST Selma Good APRN, CNP LAB - BLOOD ORDERABLES Performing Organization Address City/State/ZIP Code Phon e Number [facility] [address] [place] [address] [facility] [address], [place] [address] documented in this encounter Visit Diagnoses Diagnosis Hyperlipidemia LDL goal <100 Other and unspecified hyperlipidemia documented in this encounter Care Teams Finance Broker Relationship Specialty Start Date End Date Selma Good APRN [employer] PCP - General 04/09/08 04/07/15 3305 [facility] [place] [address] documented as of this encounter
--- OUTSIDE RECORDS SUMMARY | 2022-01-17 22:38 | XMS_ITS | Encounter Summary ---
:1965 Author Organization [facility] Address [address] [place] [address] Care Team Providers Name Role Phone Selma Good BENZENE WASHER OPERATOR COCOA BEAN CLEANER Primary Care Provider [phone] Reason for Visit Reason Onset Date Comments Orders 08/04/2014 Encounter Details Date Type Department Care Team Description 08/04/2014 Telephone [facility] Eag Selma Anthony, Orders 1440 [facility] BENZENE WASHER OPERATOR [place] [phone] [place] [address] [facility] [place] [phone] (Wo rk) Social History [...] often do you attend oriental orthodox or yazidi Patient refused 08/08/2019 services? Do [...] and repeat fasting labs in 2 m OR TECHNICAL BUSINESS ANALYST Telephone Encounter - Rossana Adams - 08/04/2014 3:[address] orders for upcoming lab appointment on 08/10/14 Thank you OR TECHNICAL BUSINESS ANALYST documented in this encounter Plan of Treatment Not on filedocumented as of this encounter Results Microalbumin quantitative random urine (08/10/2014 8:57 AM SENIOR TECHNICAL BUSINESS ANALYST) Patholo gist Method Time Signature Creatinine 41 mg/dL [facility] Urine [facility] Albumin Urine <5 mg/L [facility] mg/L [facility] Albumin Urine Unable to calculate due to low value 0 - 25 [facility] mg/g Cr Effective 01/07/2014, the re ference range for this assay has changed to reflect mg/g Cr [facility] new instrumentation/methodology. HOSPITAL Specimen Anatomical Collection Method Collection Time Receive d Time (Source) Location / / Volume Laterality Urine specimen 08/10/2014 8:57 AM 015 8:58 (specimen) SENIOR TECHNICAL BUSINESS ANALYST AM SENIOR TECHNICAL BUSINESS ANALYST Selma Good APRN [employer] LAB - URINE ORDERABLES Performing Organization Address City/State/ZIP Code Phon e Number [facility] [address] [place] [address] [facility] [address] [place] [address] [facility] [address] [place], [place] [address] [facility] Lipid panel reflex to direct LDL (08/10/2014 8:56 AM SENIOR TECHNICAL BUSINESS ANALYST) athologist Signature Cholesterol 153 <200 mg/dL [facility] Comment: LDL Cholesterol is the primary guide to therapy. The NCEP recommends further evaluation of: patients with cholesterol greater than 200 mg/dL if additional risk facto rs are present, cholesterol greater than 240 mg/dL, triglycerides greater than 1 50 mg/dL, or HDL less than 40 mg/dL. Triglycerides 79 0 - 150 mg/dL [facility] HDL Cholesterol 61 >50 mg/dL [facility] [facility] LDL Cholesterol Calculated 76 0 - 129 mg/dL [facility] Comment: LDL Cholesterol is the primary guide to therapy: LDL-cholesterol goal in high risk patients is <100 mg/dL and in very high risk patients is <70 mg/dL. VLDL-Cholesterol 16 0 - 30 mg/dL [facility] Cholesterol/HDL Ratio 2.5 0.0 - 5.0 [facility] Specimen Anatomical Collection Method Collection Time Receive d Time (Source) Location / / Volume Laterality Blood specimen 08/10/2014 8:56 AM 015 8:57 (specimen) SENIOR TECHNICAL BUSINESS ANALYST AM SENIOR TECHNICAL BUSINESS ANALYST Selma Good APRN, CNP LAB - BLOOD ORDERABLES Performing Organization Address City/State/ZIP Code Phon e Number [facility] [address] [place] [address] documented in this encounter Visit Diagnoses Diagnosis Type 2 diabetes, HbA1c goal < 7% (H) - P rimary Type II or unspecified type diabetes sukhdev litus without mention of complication, not stated as uncontrolled Hyperlipidemia LDL goal <100 Other and unspecified hyperlipidemia Hypertension goal BP (blood pressure) < 130/80 Unspecified essential hypertension documented in this encounter Care Teams Electrical Tester Relationship Specialty Start Date End Date Selma Good APRN CNP PCP - General 04/09/08 04/07/15 0601 [facility] [place] [id number] documented as of this encounter
--- OUTSIDE RECORDS SUMMARY | 2022-01-17 22:38 | XMS_ITS | Encounter Summary ---
:1965 Author Organization [place] Address [address] [place] [address] Care Team Providers Name Role Phone Selma Good APRN CONTAINER COORDINATOR Primary Care Provider [phone] Reason for Referral Consultation - Closed Specialty Diagnoses / Procedures Referred By Contact Refer red To Contact Diagnoses OME (otitis media with effusion), bilateral Selma Good, RIO MEDINA ALLERGY AND DIETETIC INTERN [facility] ASTHMA [address] [facility] [place] [address] Referral ID Status Reason Start Date Expiration Date Visits Requ ested Visits Authorized [id number] Closed 12/17/2013 06/15/2014 1 1 Reason for Visit Reason Comments RECHECK Encounter Details Date Type Department Care Team Description 12/17/2013 Office Visit [facility] Le Good al lergic rhinitis (Primary Dx); Pino Angeles APRN OME (otitis media with effus ion), bilateral; [address] [employer] [facility] Amenorrhea [place] [phone] 3[address] [facility] [phone] [facility] [place] [address] Social History Tobacco [...] How often do you attend religious or judaism Patient refused 08/08/2019 services? Do you belong to any clubs or organizations such as No 08/08/2019 religious groups, [employer], [employer] or athletic groups, or school groups? How [...] file for this visit. Selma Good NP, VEHICLE FUEL SYSTEMS CONVERTER [facility] documented in this encounter Nursing Notes [place] [...] menstruation documented in this encounter Care Teams Typing Checker Relationship Specialty Start Date End Date Selma Good, DIETETIC INTERN CONTAINER COORDINATOR PCP - General 04/09/08 04/07/15 [address] [facility] [place] [address] documented as of this encounter
--- OUTSIDE RECORDS SUMMARY | 2022-01-17 22:39 | XMS_ITS | Encounter Summary ---
:1965 Author Organization [place] Address [address] [place] [address] Care Team Providers Name Role Phone Selma Good APRN SOCCER COACH Primary Care Provider [phone] Reason for Visit Reason Onset Date Comments Chronic Care Conference Provider Overview 04/06/2010 Encounter Details Date Type Department Care Team Description 04/06/2010 Telephone [facility] Eag adarsh Good, Chronic Care Conference 1440 [facility] Selma Angeles APRN SOCCER COACH Provider Overview [place] [phone] [address] [facility] [phone] [facility] [place] [address] (Wo [...] How often do you attend synagogue or anglican Patient refused 08/08/2019 services? Do [...] on filedocumented in this encounter Care Teams Skin Care Technician Relationship Specialty Start Date End Date Selma Good, CORPORATE SECRETARY SOCCER COACH PCP - General 04/09/08 04/07/15 [address] [facility] [address] [place], [place] [address] documented as of this encounter
--- OUTSIDE RECORDS SUMMARY | 2022-01-17 22:39 | XMS_ITS | Encounter Summary ---
:1965 Author Organization [place] Address [address] [place] [address] Care Team Providers Name Role Phone Selma Bullard RIGGING UP WORKER ELECTRONIC COILS SUPERVISOR Primary Care Provider Reason for Visit Reason Onset Date Comments Cellulitis 08/29/2010 Encounter Details Date Type Department Care Team Description 08/29/2010 Telephone [facility] Eag Selma Anthony, Cellulitis 1440 [facility] RIGGING UP WORKER ELECTRONIC COILS SUPERVISOR [place] [phone] 119[address] [facility] [phone] [facility] [place] [address] (Wo rk) Social [...] How often do you attend bahai or anabaptist Patient refused 08/08/2019 services? Do [...] this encounter Miscellaneous Notes Telephone Encounter - Chritsina Phipps - 08/29/2010 8:13 AM CDT Patient [...] on filedocumented in this encounter Care Teams Low Raw Sugar Cutter Relationship Specialty Start Date End Date Selma Bullard, RIGGING UP WORKER ELECTRONIC COILS SUPERVISOR PCP - General 04/09/08 04/07/15 [address] [facility] [place] [address] documented as of this encounter
--- OUTSIDE RECORDS SUMMARY | 2022-01-17 22:39 | XMS_ITS | Encounter Summary ---
:1965 Author Organization [place] Address [address] [place] [address] Care Team Providers Name Role Phone Selma Good APRN SPECIAL EDUCATION PROFESSIONAL Primary Care Provider [phone] Encounter Details Date Type Department Care Team Description 06/21/2011 Office Visit [facility] Diego Padilla NO SHOW (Primary Dx) 14[address] [employer] [place] [address] 7[address] [facility] [phone] [facility] [place] [address] Social History Tobacco [...] How often do you attend synagogue or baptist Patient refused 08/08/2019 services? Do [...] 06/26/2011 9:56 AM CST appt cancelled R AND INSPECTOR documented in this encounter Plan of Treatment Not on filedocumented as of this encounter Visit Diagnoses Diagnosis NO SHOW - Primary documented in this encounter Care Teams Golf Course Ranger Relationship Specialty Start Date End Date Selma Good, SEAN SPECIAL EDUCATION PROFESSIONAL PCP - General 04/09/08 04/07/[address] [place] [address] documented as of this encounter
--- OUTSIDE RECORDS SUMMARY | 2022-01-17 22:39 | XMS_ITS | Encounter Summary ---
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 [...] vulva documented in this encounter Care Teams Real Estate Executive Assistant Relationship Specialty Start Date End Date Selma Good, FLEET MAINTENANCE MANAGER FIRER LOCOMOTIVE PCP - General 04/09/08 04/07/[address] [facility] [address] [place], [place] [address] documented as of this encounter
--- OUTSIDE RECORDS SUMMARY | 2022-01-17 22:39 | XMS_ITS | Encounter Summary ---
:1965 Author Organization [place] Address [address] [place] [address] Care Team Providers Name Role Phone Selma Good APRN HEAVY FORGING MACHINE OPERATOR Primary Care Provider [phone] Reason for Visit Reason Comments UTI Or yeast symptoms Encounter Details Date Type Department Care Team Description 07/27/2011 Office Visit [facility] Vanda Guerrero Vaginal infection; Pino Toribio MD UTI (urinary tract infection); [address] [employer] [place] [address] Vaginal itching [place] [address] [facility] [address] [phone] [place] [id number] (Wo rk) Social History Tobacco Use Types [...] How often do you attend cheondoism or jainism Patient refused 08/08/2019 services? Do [...] Comments Blood Pressure 110/65 07/27/2011 9:40 AM DIAGNOSTIC SALES SPECIALIST Pulse 68 07/27/2011 9:40 AM DIAGNOSTIC SALES SPECIALIST Temperature - - Respiratory Rate - - Oxygen Saturation - - Inhaled Oxygen Concentration - - Weight 72.6 kg (160 lb) 07/27/2011 9:40 AM DIAGNOSTIC SALES SPECIALIST Height 157.5 cm (5' 2) 07/27/2011 9:40 AM DIAGNOSTIC SALES SPECIALIST Body Mass Index 29.26 07/27/2011 9:40 AM DIAGNOSTIC SALES SPECIALIST documented in this encounter Patient Instructions Patient InstructionsVanda Guerrero MD - 07/27/2011 10:02 AM CST Bladder infection - push fluids - start taking bactrim twice daily for the next 3 days Vaginal itching - normal wet prep today - trial of steroid cream - use twice daily - make appt to see oyster washer again NOSTIC SALES SPECIALIST documented in this encounter Progress Notes Vanda [...] Ketones Urine Low: NEG mg/dL Negative Specific [place] Urine 1.003 - 1.035 1.025 Blood Urine [...] twice daily - make appt to see oyster washer again Vanda Guerrero MD Internal Medicine - Pediatrics NOSTIC SALES SPECIALIST documented in this encounter Nursing Notes 07/27/2011 9:30 AM CST >> KEYANNA WOODWAR[facility]AL[facility] Jul 27, 2011 9:43 AM Patient presents [...] (urinary tract Resu lts for this AM DIAGNOSTIC SALES SPECIALIST infection) procedure are i n the results section. URINE MICROSCOPIC Routine 07/27/2011 9:37 AM Resu lts for this DIAGNOSTIC SALES SPECIALIST procedure are i n the results section. UA MACROSCOPIC WITH Routine 07/27/2011 9:37 AM UTI (urinary tr act Results for this REFLEX TO MICROSCOPIC DIAGNOSTIC SALES SPECIALIST infection) proced ure are in AND CULTURE the results section. WET PREPARATION Routine 07/27/2011 9:33 AM Vaginal infection R esults for this DIAGNOSTIC SALES SPECIALIST procedure are i n the results section. documented in this encounter Results Urine culture (07/27/2011 10:03 AM DIAGNOSTIC SALES SPECIALIST) Component Value Ref Test Analysis Performed At [...] Urine specimen 07/27/2011 10:03 2 (specimen) AM DIAGNOSTIC SALES SPECIALIST 10:06 AM DIAGNOSTIC SALES SPECIALIST Vanda Guerrero MD LAB - MICRO GENERAL ORDERABL ES Performing Organization Address City/State/ZIP Code Phon e Number [facility] [address] [place], [place] [id number] [place] [address] [facility] MICROBIOLOGY (ABNORMAL) Urine Microscopic (07/27/2011 9:37 AM DIAGNOSTIC SALES SPECIALIST) Analysis Performed At Patho logist Time Signature WBC Urine 5-10 (A) 0 - 2 /HPF [facility] RBC Urine O - 2 0 - 2 /HPF [facility] Squamous Few FEW /LPF [facility] Urine LAB Bacteria Urine Few (A) NEG /HPF [facility] Specimen Anatomical Collection Method Collection Time Receive d Time (Source) Location / / Volume Laterality 07/27/2011 9:37 AM 2 9:39 DIAGNOSTIC SALES SPECIALIST AM DIAGNOSTIC SALES SPECIALIST Vanda Guerrero MD LAB - URINE ORDERABLES Performing Organization Address [facility]/ZIP [facility] Phon e Number [address] [address] [facility] (ABNORMAL) *UA macro reflex to micro and culture (07/27/2011 9:37 AM DIAGNOSTIC SALES SPECIALIST) [facility] Method Time Signature Color Urine Yellow [facility] Appearance Urine Clear [facility] Glucose Urine 250 (A) NEG mg/dL [facility] Bilirubin Urine Negative NEG [facility] Ketones Urine Negative NEG mg/dL [facility] Specific [place] 1.025 1.003 - [place] Urine 1.035 [facility] Blood Urine Trace (A) NEG [facility] pH Urine 5.0 5.0 - 7.0 [place] pH [facility] Protein Albumin Negative NEG mg/dL [place] Urine [facility] Urobilinogen 0.2 0.2 - 1.0 [place] Urine EU/dL [facility] Nitrite Urine Negative NEG [facility] Leukocyte Negative NEG [place] Esterase Urine [facility] Source Midstream [place] Urine [facility] Specimen Anatomical Collection Method Collection Time Receive d Time (Source) Location / / Volume Laterality Urine specimen 07/27/2011 9:37 AM 012 9:39 (specimen) DIAGNOSTIC SALES SPECIALIST AM DIAGNOSTIC SALES SPECIALIST Vanda Geurrero MD LAB - URINE ORDERABLES Performing Organization Address City/[facility]/ZIP Code Phon e Number [facility] [address] [place] [address] [facility] Wet prep (07/27/2011 9:33 AM DIAGNOSTIC SALES SPECIALIST) [facility] Method Time Signature Specimen Urine [place] Description [facility] Wet Prep No Trichomonas seen [place] No clue cells seen [facility] No yeast seen LAB Micro Report FINAL [place] Status 07/27/2011 [facility] Specimen Anatomical Collection Method Collection Time Receive d Time (Source) Location / / Volume Laterality 07/27/2011 9:33 AM 2 9:35 DIAGNOSTIC SALES SPECIALIST AM DIAGNOSTIC SALES SPECIALIST Vanda Guerrero MD LAB - MICRO GENERAL ORDERABL ES Performing Organization Address City/State/ZIP Code Phon e Number [facility] [address] [facility] [place] [address] [facility] documented in this encounter Visit Diagnoses Diagnosis Vaginal infection Vaginitis and vulvovaginitis, unspecifie d UTI (urinary tract infection) Urinary tract infection, site not specif ied Vaginal itching Pruritus of genital organs documented in this encounter Care Teams Dry House Worker Relationship Specialty Start Date End Date Selma Good, SEAN HEAVY FORGING MACHINE OPERATOR PCP - General 04/09/08 04/07/15 [address] [facility] [place] [address] documented as of this encounter
--- OUTSIDE RECORDS SUMMARY | 2022-01-17 22:39 | XMS_ITS | Encounter Summary ---
:1965 Author Organization [place] Address [address] [place] [address] Care Team Providers Name Role Phone Selma Good APRN FLATWORK FINISHER Primary Care Provider [phone] Reason for Visit Reason Comments Jaw Pain jaw pain, neck pain, arm valdo n all day. Encounter Details Date Type Department Care Team Description 10/28/2011 - Emergency [facility] Albert Calloway MD [facility] [address] [place], [place] [address] Chest pain; 10/29/[address] Ольга Hawkins MD [address] [place] [address] Hypertension goal BP (blood pressure) < 130/80; Surgical Vulvar dystrophy; [address] GERD (gastroesophageal reflu x disease); [place], [place] Hyperlipidemi a LDL goal <100 [phone] [...] How often do you attend gnosticism or nondenominational Patient refused 08/08/2019 services? Do you belong to any clubs or organizations such as No 08/08/2019 gnosticism groups, [employer], [employer] or athletic groups, or school groups? How [...] 10:55 AM CDT Thank you for allowing [facility] to participate in your cares. 1 out [...] her upper extremities reveals 5/5 strength of automobile body worker, biceps, triceps of the bilateral upper extremities [...] MD MT: #[id number] Name: MEGAN WONG Account: [id number] : 1965 Admitted: [id number] Document: [id number] documented in this encounter ED Notes Ciera [...] Normal sinus rhythm, ventricular rate 62 bpm. [place] Interval: 196 ms QRS Duration: 98 ms [...] record. The patient was placed on a certification engineer and continuous pulse oximeter. IV inserted. 2230 [...] Individualization/Patient-Specific Goal (Adult,OB,Behavioral The patient and/or their service support representative will achieve their patient-specific goals related [...] . Pharmacy-Admission Medication History - Larry Reyes [facility] - 10/29/2011 9:28 AM CDT Medication Reconciliation Complete. Plan of Care - Cristina Lacy RN - 10/29/2011 7:03 AM CDT Problem: IP GENERAL POC-ADULT,OB,BEHAVIORAL FVCPM Goal: Individualization/Patient-Specific Goal (Adult,OB,Behavioral The patient and/or their service support representative will achieve their patient-specific goals related [...] 4:45 CDT PM CDT Kalyan Calloway MD [facility] POCT Performing Organization Address City/State/ZIP Code Phon e Number FV POINT OF CARE TEST, GLUCOSE POINT OF CARE TEST, GLUCOSE Echo stress test (10/29/2011 7:50 AM CDT) [facility] gist Method Time Signature [facility] Interpretation [...] Signature Troponin I ES <0.012 0.000 - [facility] 0.034 ug/L [facility] Specimen Anatomical Collection Method Collection Time Receive d Time (Source) Location / / Volume Laterality Blood specimen 10/29/2011 6:15 AM 012 6:39 (specimen) CDT AM CDT Wisam Weiss MD LAB - BLOOD ORDERABLES Performing Organization Address City/[facility] Phon e Number [place] [address] [place], [place] [address] [facility] Hemoglobin A1c (10/29/2011 6:15 AM CDT) athologist Signature Hemoglobin A1C 5.5 4.3 - 6.0 [facility] Specimen Anatomical Collection Method Collection Time Receive d Time (Source) Location / / Volume Laterality Blood specimen 10/29/2011 6:15 AM 012 6:38 (specimen) CDT AM CDT Wisam Weiss MD LAB - BLOOD ORDERABLES Performing Organization Address City/[facility] e [place] [address] [place], [place] [address] [phone] [place] [address] LAB Troponin I (10/29/2011 2:35 AM CDT) athologist Signature Troponin I ES <0.012 0.000 - [facility] 0.034 ug/L [facility] Specimen Anatomical Collection Method Collection Time Receive d Time (Source) Location / / Volume Laterality Blood specimen 10/29/2011 2:35 AM 012 2:36 (specimen) CDT AM CDT Ольга Hawkins MD LAB - BLOOD ORDERABLES Performing Organization Address City/[facility] Phon e [place] [address] [place], [place] [address] [facility] CT Angiogram neck w [...] 1:30 CDT AM CDT Kalyan Calloway MD [facility] POCT Performing Organization Address City/State/ZIP [...] Signature D Dimer 0.4 0.0 - 0.50 [facility] ug/ml [facility] Specimen Anatomical Collection Method Collection Time Receive d Time (Source) Location / / Volume Laterality 10/28/2011 9:55 PM 2 CDT 10:12 PM CDT Kalyan Calloway MD LAB - BLOOD ORDERABLES Performing Organization Address City/[facility] Phon e Number [facility] [address] [place], [place] [address] [facility] Troponin I (now) (10/28/2011 9:55 PM CDT) athologist Signature Troponin I ES <0.012 0.000 - [place] 0.034 ug/L [facility] Specimen Anatomical Collection Method Collection Time Receive d Time (Source) Location / / Volume Laterality Blood specimen 10/28/2011 9:55 PM 012 (specimen) CDT 10:12 PM CDT Kalyan Calloway MD LAB - BLOOD ORDERABLES Performing Organization Address City/[facility] Phon e Number [facility] [address] [place], [place] [address] [facility] CBC + differential (10/28/2011 9:55 PM CDT) Patholo gist Method Time Signature WBC 8.1 4.0 - [place] 11.0 [facility] 10e9/L [facility] RBC Count 4.09 3.8 - 5.2 [place] 10e12/L [facility] Hemoglobin 12.3 11.7 - [place] 15.7 g/dL [facility] Hematocrit 37.9 35.0 - [place] 47.0 % [facility] MCV 93 78 - 100 [facility] LAB MCH 30.1 26.5 - [facility] 33.0 pg [facility] MCHC 32.5 31.5 - [facility] 36.5 g/dL [facility] RDW 12.5 10.0 - [place] 15.0 % [facility] Platelet Count 221 150 - 450 [place] 10e9[facility] Diff Method Automated [place] Method [facility] % Neutrophils 48.0 40 - 75 % [facility] % Lymphocytes 39.9 20 - 48 % [facility] % Monocytes 7.9 0 - 12 % [facility] % Eosinophils 3.1 0 - 6 % [facility] % Basophils 0.7 0 - 2 % [facility] % Immature 0.4 0 - 0.4 % [place] Granulocytes [facility] Absolute 3.9 1.6 - 8.3 [place] Neutrophil 10e9/L [facility] Absolute 3.3 0.8 - 5.[address] [place] Lymphocytes [address] LAB Absolute 0.6 0.0 - 1.3 [place] Monocytes 10e9/[facility] Absolute 0.3 0.0 - 0.7 [place] Eosinophils 10e9[facility] Absolute 0.1 0.0 - 0.2 [place] Basophils 10e9[facility] Abs Immature 0.0 0 - 0.03 [place] Granulocytes [address] [place] [address] LAB Specimen Anatomical Collection Method Collection Time Receive d Time (Source) Location / / Volume Laterality Blood specimen 10/28/2011 9:55 PM 012 (specimen) CDT 10:12 PM CDT Kalyan Calloway MD LAB - BLOOD ORDERABLES Performing Organization Address City/State/ZIP Code Phon e Number [facility] [address] [place] [address] [facility] (ABNORMAL) Basic metabolic panel (BMP) (10/28/2011 9:55 PM CDT) P athologist Signature Sodium 142 133 - 144 [place] mmol/L [facility] Potassium 3.6 3.4 - 5.3 [place] mmol/L [facility] Chloride 100 94 - 109 [place] mmol/L [facility] Carbon Dioxide 31 20 - 32 [place] mmol/L [facility] Anion Gap 12 6 - 17 [place] mmol/L [facility] Glucose 102 (H) 60 - 99 [place] mg/dL [facility] Urea Nitrogen 16 5 - 24 [place] mg/dL [facility] Creatinine 0.63 0.52 - [facility] 1.04 mg/dL [facility] GFR Estimate >90 >60 [place] mL/min/1.[address] LAB GFR Estimate If >90 >60 [place] Black mL/min/1.[address] LAB Calcium 9.2 8.5 - 10.4 [place] mg/dL [facility] Specimen Anatomical Collection Method Collection Time Receive d Time (Source) Location / / Volume Laterality Blood specimen 10/28/2011 9:55 PM 012 (specimen) CDT 10:12 PM CDT Kalyan Calloway MD LAB - BLOOD ORDERABLES Performing Organization Address City/State/ZIP Code Phon e Number [place] [address] [place] [address] [facility] EKG 12 lead (10/28/2011 9:15 PM CDT) Component Value Ref Range Test Analysis Performed Pathologis t Method Time At Signature Ventricular Rate 62 BPM RADIOLOGY RESULTS Atrial Rate 62 BPM RADIOLOGY RESULTS [place] Interval 196 ms RADIOLOGY RESULTS QRS Duration 98 ms RADIOLOGY RESULTS QT 410 ms RADIOLOGY RESULTS QTc 416 ms RADIOLOGY RESULTS P Hagan 57 degrees RADIOLOGY RESULTS R AXIS -27 degrees RADIOLOGY RESULTS T Hagan 48 degrees RADIOLOGY RESULTS Interpretation AGE AND [...] doses documented in this encounter Care Teams Key Person Relationship Specialty Start Date End Date Selma Good, BATH SOLUTION MAKER FLATWORK FINISHER PCP - General 04/09/08 04/07/[address] [facility] [place] [address] documented as of this encounter
--- OUTSIDE RECORDS SUMMARY | 2022-01-17 22:39 | XMS_ITS | Encounter Summary ---
:1965 Author Organization [facility] Address [address] [place] [address] Care Team Providers Name Role Phone Selma Good APRN, CNP Primary Care Provider [phone] Reason for Visit Reason Onset Date Comments Refill Request 10/14/2010 change Omeprazole Rx to mail order pharmacy Encounter Details Date Type Department Care Team Description 10/14/2010 Refill [facility] Eag Selma Anthony [facility] Request [facility] SEAN [place] CNP Omeprazole Rx to mail [place] [phone] [place] [address] pharmacy) [phone] [facility] [place] [id number] (Wo rk) Social History Tobacco Use Types [...] How often do you attend rastafari or mormonism Patient refused 08/08/2019 services? Do [...] 9:28 AM CDT Requesting Rx sent to [facility] mail order pharmacy instead of [facility]. Rx faxed to [facility]. Thea Winchester RN documented in this encounter Plan of Treatment Not on filedocumented as of this encounter Visit Diagnoses Diagnosis GERD (gastroesophageal reflux disease) - Primary Esophageal reflux documented in this encounter Care Teams Architecture Consultant Relationship Specialty Start Date End Date Danilo-Selma Mccoy APRN TRIM LINE WORKER PCP - General 10/30/08 10/28/15 [address] [facility] [place] [address] documented as of this encounter
--- OUTSIDE RECORDS SUMMARY | 2022-01-17 22:47 | XMS_ITS | Encounter Summary ---
:1965 Author Organization [facility] Address [address] [place] [address] Care Team Providers Name Role Phone Greyson Gonzalez MD Primary Care Provider Encounter Details Date Type Department Care Team Description 11/21/2001 Office Visit [facility] Optometry Ailyn Silva ey R MYOPIA [address] [place], [place] [address] (Wo rk) Social History Tobacco Use Types Packs/Day Years Used Date Smoking Tobacco: Never Assessed Sex Assigned at Date Recorded Not on file documented as of this encounter Plan of Treatment Not on filedocumented as of this encounter Visit Diagnoses Diagnosis Myopia documented in this encounter Care Teams Edge Kitter Relationship Specialty Start Date End Date Greyson Gonzalez MD PCP - General 04/15/01 12/23/03 [address] [place], [place] [phone] documented as of this encounter
--- OUTSIDE RECORDS SUMMARY | 2022-01-17 22:47 | XMS_ITS | Encounter Summary ---
:1965 [facility] Address [address] [place] [address] Care Team Providers Name Role Phone Greyson Gonzalez MD Primary Care Provider Encounter Details Date Type Department Care Team Description 09/08/2002 Orders Only [facility] Blank Perez APRN, PIT SHOVELER 205 [facility] [address] [place] [address] [place] [address] (Wo rk) Social History Tobacco [...] PM Re sults for this 12 HOUR MARKER ASSEMBLER procedure are i n the results section. documented in this encounter Results (ABNORMAL) CHOLESTEROL LIPID PANEL FAST >12HR FAST (09/08/2002 4:51 PM MARKER ASSEMBLER) P athologist Signature Cholesterol 152 <200 mg/dl [facility] Triglyceride 82 <200 mg/dl [facility] HDL 34 (L) >35 mg/dl [facility] LDL, Calc. 102 mg/dl [facility] Hours Fasting 12 hours [facility] Specimen Anatomical Collection Method Collection Time Receive d Time (Source) Location / / Volume Laterality 09/08/2002 4:51 PM 3 4:51 MARKER ASSEMBLER PM MARKER ASSEMBLER Blank Perez APRN, PIT SHOVELER LAB_1 Performing Organization Address City/State/ZIP Code Phon e Number [facility] [phone] [facility] [address] [address] documented in this encounter Visit Diagnoses Not on filedocumented in this encounter Care Teams Business Continuity Specialist Relationship Specialty Start Date End Date Greyson Gonzalez MD PCP - General 04/15/01 12/23/03 [address] [place], [place] [address] documented as of this encounter
--- OUTSIDE RECORDS SUMMARY | 2022-01-17 22:47 | XMS_ITS | Encounter Summary ---
:1965 Author Organization [facility] Address [address], [place] [address] Care Team Providers Name Role Phone Greyson Gonzalez MD Primary Care Provider Encounter Details Date Type Department Care Team Description 01/03/2002 Office Visit [facility] Juanito Panda, FAITH MAHMOOD CYST; Medicine ESOPHAGEAL REFLUX [address] [place] [address] Social History Tobacco Use Types [...] reflux documented in this encounter Care Teams Glue Machine Operator Relationship Specialty Start Date End Date Greyson Gonzalez MD PCP - General 04/15/01 12/23/03 [address] [place] [address] documented as of this encounter
--- OUTSIDE RECORDS SUMMARY | 2022-01-17 22:47 | XMS_ITS | Encounter Summary ---
:1965 Author Organization [facility] Address [address], [place] [address] Care Team Providers Name Role Phone Greyson Gonzalez MD Primary Care Provider Encounter Details Date Type Department Care Team Description 12/27/2001 Orders Only [facility] Internal Med Juanito Chandra MD [address] [place] [address] Social History Tobacco Use Types Packs/Day Years Used Date Smoking Tobacco: Never Assessed Sex Assigned at Date Recorded Not on file documented as of this encounter Plan of Treatment Not on filedocumented as of this encounter Visit Diagnoses Not on filedocumented in this encounter Care Teams Senior Java Programmer Analyst Relationship Specialty Start Date End Date Greyson Gonzalez MD PCP - General 04/15/01 12/23/03 [address] [place] [address] documented as of this encounter
--- OUTSIDE RECORDS SUMMARY | 2022-01-17 22:47 | XMS_ITS | Encounter Summary ---
:1965 Author Organization [facility] Address [address] [place] [address] Care Team Providers Name Role Phone Greyson Gonzalez MD Primary Care Provider Encounter Details Date Type Department Care Team Description 01/24/2002 Office Visit [facility] Internal OfSchuyler moore, ACUTE Medicine PHARYNGITIS(SORE [address] THROAT) [place] [address] [place], [place] [phone] (Wo rk) Social History Tobacco Use [...] pharyngitis. PLAN: 1. Discussed with patient. Advised [id number] cough syrup and Tylenol. 2. Prescription for [...] pharyngitis documented in this encounter Care Teams Medical Scribe Relationship Specialty Start Date End Date Greyson Gonzalez MD PCP - General 04/15/01 12/23/03 [address] [place] [address] documented as of this encounter
--- OUTSIDE RECORDS SUMMARY | 2022-01-17 22:47 | XMS_ITS | Encounter Summary ---
:1965 Author Organization [facility] Address [address] [place] [address] Care Team Providers Name Role Phone Greyson Gonzalez MD Primary Care Provider Encounter Details Date Type Department Care Team Description 08/22/2002 Office Visit [facility] Internal Greyson Gonzalez, JOINT PAIN-SHLDER; Medicine PAIN IN LIMB 205 [facility] [address] [place] [address] [place], [place] [phone] (Wo rk) Social History Tobacco Use Types Packs/Day Years Used Date Smoking Tobacco: Never Assessed Sex Assigned at Date Recorded Not on file documented as of this encounter Last Filed Vital Signs Vital Sign Reading Time Taken Comments Blood Pressure 108/56 08/22/2002 4:20 PM UNIT AIDE TECH Pulse 72 08/22/2002 4:20 PM UNIT AIDE TECH Temperature - - Respiratory Rate 12 08/22/2002 4:20 PM UNIT AIDE TECH Oxygen Saturation - - Inhaled Oxygen Concentration - - Weight 71.2 kg (157 lb) 08/22/2002 4:20 PM UNIT AIDE TECH Height - - Body Mass Index - - documented in this encounter Progress Notes 08/22/2002 4:20 PM UNIT AIDE TECH Megan Choi is here today for R shoulder pain. Are you having other pain today, that you want to discuss with the provider? -NO Preventive Services up to date? -YES Immunizations up to date? -YES Do you ever feel physically threatened or emotionally afraid? -NO Tobacco Status reviewed? (see History Social-Substance) -YES sludge filtration attendant offered? -NOT APPLICABLE. Aspirin taken daily? -NO BP was taken on the RIGHT arm. Large cuff used? -NO Health Education given? -NO. Current prescriptions: MULTIPLE VITAMIN TABS OR, 1 qd, D: 30, R: 0 ACIPHEX 20MG ORAL TABS, TAKE 1 TABLET by mouthDAILY, D: 30, R: 0 Erythromycin Contact phone number [phone] (home) [phone] (work), alternate phone number . 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 OBJECTIVE: Blood pressure 108/56. Pulse 72. Respiratory [...] Right shoulder and upper extremity pain. cc: AIDE TECH Greyson Gonzalez - 08/22/2002 12:00 AM UNIT AIDE TECH AIDE TECH documented in this encounter Plan of Treatment Not on filedocumented as of this encounter Visit Diagnoses Diagnosis Pain in joint, shoulder region Pain in limb documented in this encounter Care Teams Tractor Mechanic Helper Relationship Specialty Start Date End Date Greyson Gonzalez MD PCP - General 04/15/01 12/23/[address] [facility] [place] [address] documented as of this encounter
--- OUTSIDE RECORDS SUMMARY | 2022-01-17 22:47 | XMS_ITS | Encounter Summary ---
:1965 Author Organization [facility] Address [address] [place] [address] Care Team Providers Name Role Phone Jose Colin DO Primary Care Provider [phone] Encounter Details Date Type Department Care Team Description 04/08/2004 Office Visit [facility] Internal Jose Colin DERM ATITIS NOS; Medicine D, DO SCIATICA(ACUTE); 205 [facility] [address] [place] [address] [place] [phone] [address] (Wo rk) Social History Tobacco Use [...] Body Mass Index 31.09 09/02/2002 2:00 PM SUPERVISOR PUBLIC MESSAGE SERVICE documented in this encounter Progress Notes 04/08/2004 [...] Status reviewed? (see History Social-Substance) -YES NEVER travel attendants offered? -NOT APPLICABLE. Aspirin taken daily? -NO BP was taken on the LEFT arm. BP cuff size used? -Adult Regular Health Education given? -NO. Contact phone number [phone] (home) [phone] (work), alternate phone number- Schuyler Kilgore MONSE [...] reflux documented in this encounter Care Teams Office Asst Relationship Specialty Start Date End Date Jose Colin, DO PCP - General 12/24/03 09/17/08 [address] [place] [address] documented as of this encounter
--- OUTSIDE RECORDS SUMMARY | 2022-01-17 22:47 | XMS_ITS | Encounter Summary ---
:1965 Author Organization [facility] Address [address] [place] [address] Care Team Providers Name Role Phone Greyson Gonzalez MD Primary Care Provider Encounter Details Date Type Department Care Team Description 05/15/2003 Office Visit [facility] Mammogram I, Sp S CREENING MAMM-MAILG Mammography NEOPL-OTHER (Primary [address] [facility]) [place] [address] Social History Tobacco Use Types [...] 10:42 A cc: AUDREY Moffett Radiology SP TRICIAN APPRENTICE documented in this encounter Plan of Treatment [...] cc: AUDREY Moffett Radiology SP Blank Perez EDGE MOLDER, GREEN END MAN RAD_BI documented in this encounter Visit Diagnoses Diagnosis Other screening mammogram - Primary documented in this encounter Care Teams Patient Placement Coordinator Relationship Specialty Start Date End Date Greyson Gonzalez MD PCP - General 04/15/01 12/23/03 [address] [place] [address] documented as of this encounter
--- OUTSIDE RECORDS SUMMARY | 2022-01-17 22:47 | XMS_ITS | Encounter Summary ---
:1965 Author Organization [facility] Address [address], [place] [address] Care Team Providers Name Role Phone Jose Colin DO Primary Care Provider Encounter Details Date Type Department Care Team Description 04/20/2004 Telephone [facility] Internal [facility] icine Jose Colin, [address] [place] [address] [address] [place] [phone] [place] [address] (Wo rk) Social History Tobacco Use Types Packs/Day Years Used Date Smoking Tobacco: Never Alcohol Use Standard Drinks/Week Comments Not Asked 0 (1 standard drink = 0.6 oz pure alcoho l) Sex Assigned at Date Recorded Not on file documented as of this encounter Progress Notes Jose Colin - 04/20/2004 12:00 AM GOLF COURSE RANGER COURSE RANGER documented in this encounter Plan of Treatment Not on filedocumented as of this encounter Visit Diagnoses Not on filedocumented in this encounter Care Teams Adjunct Latin Professor Relationship Specialty Start Date End Date Jose Colin, DO PCP - General 12/24/03 09/17/08 [address] [place] [address] documented as of this encounter
--- OUTSIDE RECORDS SUMMARY | 2022-01-17 22:47 | XMS_ITS | Encounter Summary ---
:1965 Author Organization [facility] Address [address], [place] [address] Care Team Providers Name Role Phone Greyson Gonzalez MD Primary Care Provider Encounter Details Date Type Department Care Team Description 01/24/2002 Orders Only Schuyler Ortiz MD [address] [place] [address] (Wo rk) Social History Tobacco [...] STREP SCREEN (WAITI (01/24/2002 2:38 PM CDT) [facility] Method Time Signature Patient Home [phone] Raise Your Flag Phone # Patient Work None [facility] # Grp A Rapid Negative [facility] Screen Grp A Culture Negative [facility] Final Specimen Anatomical Collection Method Collection Time Receive d Time (Source) Location / / Volume Laterality 01/24/2002 2:38 PM 2 2:39 CDT PM CDT Schuyler Ortiz MD LAB_1 Performing Organization Address City/State/ZIP Code Phon e Number [facility] [phone] [facility] [address] [address] documented in this encounter Visit Diagnoses Not on filedocumented in this encounter Care Teams Oven Tender Bagels Relationship Specialty Start Date End Date Greyson Gonzalez MD PCP - General 04/15/01 12/23/03 [address] [place] [address] documented as of this encounter
--- OUTSIDE RECORDS SUMMARY | 2022-01-17 22:47 | XMS_ITS | Encounter Summary ---
:1965 Author Organization [facility] Address [address], [place] [address] Care Team Providers Name Role Phone Greyson Gonzalez MD Primary Care Provider Encounter Details Date Type Department Care Team Description 01/13/2002 Orders Only [facility] Internal Med Juanito Chandra MD [address] [place] [address] Social History Tobacco Use Types Packs/Day Years Used Date Smoking Tobacco: Never Assessed Sex Assigned at Date Recorded Not on file documented as of this encounter Plan of Treatment Not on filedocumented as of this encounter Visit Diagnoses Not on filedocumented in this encounter Care Teams Head Counselor Relationship Specialty Start Date End Date Greyson Gonzalez MD PCP - General 04/15/01 12/23/03 [address] [place], [place] [address] documented as of this encounter
--- OUTSIDE RECORDS SUMMARY | 2022-01-17 22:47 | XMS_ITS | Encounter Summary ---
:1965 Author Organization [facility] Address [address] [place] [address] Care Team Providers Name Role Phone Greyson Gonzalez MD Primary Care Provider Encounter Details Date Type Department Care Team Description 09/11/2002 Correspondence None Unknown, Physici an [facility] [address] [place], [place] [address] (Wo rk) Social History Tobacco Use Types Packs/Day Years Used Date Smoking Tobacco: Never Alcohol Use Standard Drinks/Week Comments Not Asked 0 (1 standard drink = 0.6 oz pure alcoho l) Sex Assigned at Date Recorded Not on file documented as of this encounter Progress Notes Unknown, Physician - 09/11/2002 12:00 AM ENGINE INSPECTOR documented in this encounter Plan of Treatment Not on filedocumented as of this encounter Visit Diagnoses Not on filedocumented in this encounter Care Teams Lawn Technician Relationship Specialty Start Date End Date Greyson Gonzalez MD PCP - General 04/15/01 12/23/03 [address] [place], [place] [address] documented as of this encounter
--- OUTSIDE RECORDS SUMMARY | 2022-01-17 22:47 | XMS_ITS | Encounter Summary ---
:1965 Author Organization [facility] Address [address] [place] [address] Care Team Providers Name Role Phone Greyson Gonzalez MD Primary Care Provider Encounter Details Date Type Department Care Team Description 11/18/2003 Office Visit [facility] Optometry Dafne Kyle EYE & VISION EXAMINATION; April, JAZMIN MYOPIA; [address] Jaime ASTIGMATISM NOS; [place], [place] [address] PRESBYOPIA Social History Tobacco Use Types Packs/Day [...] Presbyopia documented in this encounter Care Teams Hard Metals Hand Engraver Relationship Specialty Start Date End Date Greyson Gonzalez MD PCP - General 04/15/01 12/23/03 [address] [place] [address] documented as of this encounter
--- OUTSIDE RECORDS SUMMARY | 2022-01-17 22:47 | XMS_ITS | Encounter Summary ---
:1965 Author Organization [facility] Address [address], [place] [address] Care Team Providers Name Role Phone Greyson Gonzalez MD Primary Care Provider Encounter Details Date Type Department Care Team Description 10/14/2001 Office Visit [facility] Internal REMBERTO Colin BACK PA IN(ACUTE)<6 WEEKS; Medicine Jose Allan DO LOW BACK PAIN (CHRONIC)>6 WEEKS; 205 [facility] [address] [place] [address] [place], [place] [phone] [address] Social History Tobacco Use Types Packs/Day [...] 8 days ago she bent over to crab picker a heavy load of laundry and [...] ied documented in this encounter Care Teams Lab Instructor Relationship Specialty Start Date End Date Greyson Gonzalez MD PCP - General 04/15/01 12/23/03 [address] [place] [address] documented as of this encounter
--- OUTSIDE RECORDS SUMMARY | 2022-01-17 22:47 | XMS_ITS | Encounter Summary ---
:1965 Author Organization [facility] Address [address], [place] [address] Care Team Providers Name Role Phone Greyson Gonzalez MD Primary Care Provider Encounter Details Date Type Department Care Team Description 07/02/2001 Office Visit [facility] Internal Greyson Gonzalez, JOINT PAIN-SHLDER; Medicine PAIN IN LIMB; [address] [place] [address] [place], [place] [phone] [address] Social History Tobacco Use Types Packs/Day [...] as tolerated. She was reminded to return [employer] documented in this encounter Plan of Treatment Not on filedocumented as of this encounter Visit Diagnoses Diagnosis Pain in joint, shoulder region Pain in limb Disturbance of skin sensation documented in this encounter Care Teams Asset Protection Professional Relationship Specialty Start Date End Date Greyson Gonzalez MD PCP - General 04/15/01 12/23/03 [facility] [place] [address] documented as of this encounter
--- OUTSIDE RECORDS SUMMARY | 2022-01-17 22:47 | XMS_ITS | Encounter Summary ---
:1965 Author Organization [facility] Address [address], [place] [address] Care Team Providers Name Role Phone Greyson Gonzalez MD Primary Care Provider Encounter Details Date Type Department Care Team Description 05/20/2001 Office Visit [facility] Obstetrics Blank Perez, GENERAL SYMPTOMS NEC; and Gynecology SENIOR BOOKKEEPER, ACCESS LIAISON [facility], [address] [address] [place], [place] [phone] [address] Social History Tobacco Use Types Packs/Day [...] ULTRASOUND AND OCPS, IMPAIRED GLUCOSE TOLERANCE. cc: ICAL DOCUMENTATION CLERK documented in this encounter Plan of Treatment Not on filedocumented as of this encounter Visit Diagnoses Diagnosis General symptoms NEC Other general symptoms Counseling NOS(V65.40) Counseling NOS documented in this encounter Care Teams Door Installer Relationship Specialty Start Date End Date Greyson Gonzalez MD PCP - General 04/15/01 12/23/03 [address] [place] [address] documented as of this encounter
--- OUTSIDE RECORDS SUMMARY | 2022-01-17 22:47 | XMS_ITS | Encounter Summary ---
:1965 Author Organization [facility] Address [address], [place] [address] Care Team Providers Name Role Phone Greyson Gonzalez MD Primary Care Provider Encounter Details Date Type Department Care Team Description 09/11/2002 Office Visit [facility] Internal Med Greyson Romero MD 205 [facility] [address] [place] [address] [place], [place] [phone] (Wo rk) Social History Tobacco Use Types Packs/Day Years Used Date Smoking Tobacco: Never Alcohol Use Standard Drinks/Week Comments Not Asked 0 (1 standard drink = 0.6 oz pure alcoho l) Sex Assigned at Date Recorded Not on file documented as of this encounter Progress Notes Greyson Gonzalez - 09/11/2002 12:00 AM HORSE DOCTOR E DOCTOR documented in this encounter Plan of Treatment Not on filedocumented as of this encounter Visit Diagnoses Not on filedocumented in this encounter Care Teams Assembler Billiard Table Relationship Specialty Start Date End Date Greyson Gonzalez MD PCP - General 04/15/01 12/23/03 [address] [place], [place] [phone] documented as of this encounter
--- OUTSIDE RECORDS SUMMARY | 2022-01-17 22:47 | XMS_ITS | Encounter Summary ---
:1965 Author Organization [facility] Address [address] [address] Care Team Providers Name Role Phone Greyson Gonzalez MD Primary Care Provider Encounter Details Date Type Department Care Team Description 09/02/2002 Orders Only [facility] Blank Giraldo, CENTRAL SERVICE TECH, CAREER TECHNICAL COUNSELOR 205 [facility] [address] [place] [address] [place] [address] (Wo rk) Social History Tobacco [...] 09/02/2002 12:00 AM Res ults for this OFFICER LIEUTENANT procedure are i n the results section. documented in this encounter Results PAP TEST, ROUTINE (09/02/2002 12:00 AM OFFICER LIEUTENANT) Component Value Ref Test Analysis Performed At [facility] Method Time Signature Cytology, Pap (NOTE) REGIONS Sub Prior Cytology Report Patient Name: PADMINI CHOI Taken: 09/02/02 Received: 09/03/02 Reported: 09/10/02 Physician(s): BLANK GIRALDO ([id number]) ? [id number] ? Source of Specimen Liquid routine Pap, [...] / Volume Laterality 09/02/2002 09/03/2002 2:27 PM OFFICER LIEUTENANT Blank Giraldo APRN, CAREER TECHNICAL COUNSELOR LAB_1 Performing Organization Address City/State/ZIP Code Phon e Number [address] [address] [place], [place] [phone] documented in this encounter Visit Diagnoses Not on filedocumented in this encounter Care Teams Loan Broker Relationship Specialty Start Date End Date Greyson Gonzalez MD PCP - General 04/15/01 12/23/03 [address] [place] [address] documented as of this encounter
--- OUTSIDE RECORDS SUMMARY | 2022-01-17 22:47 | XMS_ITS | Encounter Summary ---
:1965 Author Organization [facility] Address [address] [address] Care Team Providers Name Role Phone Greyson Gonzalez MD Primary Care Provider Encounter Details Date Type Department Care Team Description 09/08/2002 Orders Only [facility] Blank Perez APRN, SENIOR AUDIT MANAGER 205 [facility] [address] [place] [address] [place] [address] (Wo rk) Social History [...] AM Res ults for this AND HDL SCIENTIFIC SPECIALIST procedure are i n the results section. GLUCOSE - FASTING > Routine 09/08/2002 7:31 AM Re sults for this 8 HRS FASTING SCIENTIFIC SPECIALIST procedure are in the results section. documented in this encounter Results GLUCOSE - FASTING > 8 HRS FASTING (09/08/2002 7:31 AM SCIENTIFIC SPECIALIST) P athologist Signature Glucose 94 70 - 110 [facility] mg/dl Hours Fasting 12 hours [facility] Specimen Anatomical Collection Method Collection Time Receive d Time (Source) Location / / Volume Laterality 09/08/2002 7:31 AM 3 7:32 SCIENTIFIC SPECIALIST AM SCIENTIFIC SPECIALIST Blank Perez APRN, SENIOR AUDIT MANAGER LAB_1 Performing Organization Address City/State/ZIP Code Phon e Number [facility] [phone] [address] (ABNORMAL) CHOLESTEROL, TOTAL AND HDL (09/08/2002 7:31 AM SCIENTIFIC SPECIALIST) athologist Signature Cholesterol 151 <200 mg/dl [facility] HDL 33 (L) >35 mg/dl [facility] Specimen Anatomical Collection Method Collection Time Receive d Time (Source) Location / / Volume Laterality 09/08/2002 7:31 AM 3 7:32 SCIENTIFIC SPECIALIST AM SCIENTIFIC SPECIALIST Blank Perez ANIMAL NUTRITION TEACHER, SENIOR AUDIT MANAGER LAB_1 Performing Organization Address City/State/ZIP Code Phon e Number [facility] Response [facility] [phone] [address] documented in this encounter Visit Diagnoses Not on filedocumented in this encounter Care Teams Personal Financial Representative Relationship Specialty Start Date End Date Greyson Gonzalez MD PCP - General 04/15/01 12/23/03 [address] [place] [address] documented as of this encounter
--- OUTSIDE RECORDS SUMMARY | 2022-01-17 22:47 | XMS_ITS | Encounter Summary ---
:1965 Author Organization [facility] Address [address], [place] [address] Care Team Providers Name Role Phone Greyson Gonzalez MD Primary Care Provider Encounter Details Date Type Department Care Team Description 2002 Orders Only [facility] Lebron Booth MD ANGELA IGN CARLO SKIN ARM Social History Tobacco Use Types Packs/Day Years Used Date Smoking Tobacco: Never Assessed Sex Assigned at Date Recorded Not on file documented as of this encounter Plan of Treatment Not on filedocumented as of this encounter Procedures Procedure Name Priority Date/Time Associated Diagnosis Comme [facility] DERMATOPATHOLOGY Routine 2002 Benign Carlo Skin Arm Resu lts for this procedure are in the resu lts section. documented in this encounter Results DERMATOPATHOLOGY (2002) Component Value Ref Test Analysis Performed At [facility] Method Time [facility] Dermatopathology [facility] DERMATOPATHOLOGY Patient: MEGAN CHOI ?? : 1965 Med Rec: [id number] Date of BX: 2002 Date Acc: 03/28/2002 Date of DX: 03/31/2002 Physician: LEBRON BOOTH MD INTERP: John Ballesteros,Eddie Alanis SITE: ? ARM, UPPER, RIGHT HX [...] ? ARM, UPPER, RIGHT : DERMATOFIBROMA SNOMED-T: ??T-[id number] SNOMED-M: ??M-55914 ICD9-CM: ??216.6 Eddie Ballesteros M.D./Pathologist Specimen (Source) Anatomical Location Collection Method / Collectio n Time Received Time / Laterality Volume 2002 Lebron Booth MD PAPS Performing Organization Address City/State/[facility] Phon e Number [facility] DERMATOPATHOLOGY [address] [place] [address] documented in this encounter Visit Diagnoses Diagnosis Benign neoplasm of skin of upper limb, i ncluding shoulder documented in this encounter Care Teams Gyn Physician Relationship Specialty Start Date End Date Greyson Gonzalez MD PCP - General 04/15/01 12/23/03 [address] [place] [address] documented as of this encounter
--- OUTSIDE RECORDS SUMMARY | 2022-01-17 22:47 | XMS_ITS | Encounter Summary ---
:1965 Author Organization [facility] Address [address] [place] [address] Care Team Providers Name Role Phone Greyson Gonzalez MD Primary Care Provider Reason for Visit Reason Comments DIZZINESS Encounter Details Date Type Department Care Team Description 03/05/2002 Telephone Careline Dereck Dacosta RN DIZZINESS [address] [place], [place] [address] [facility] [phone] [place] [address] Social History Tobacco Use Types Packs/Day Years [...] on filedocumented in this encounter Care Teams Machine Operator Hop Picker Relationship Specialty Start Date End Date Greyson Gonzalez MD PCP - General 04/15/01 12/23/03 [address] [place] [address] documented as of this encounter
--- OUTSIDE RECORDS SUMMARY | 2022-01-17 22:47 | XMS_ITS | Encounter Summary ---
:1965 Author Organization [facility] Address [address], [place] [address] Care Team Providers Name Role Phone Greyson Gonzalez MD Primary Care Provider Encounter Details Date Type Department Care Team Description 07/26/2001 Orders Only [facility]3] Internal Med Juanito Chandra MD [address] [place] [address] Social History Tobacco Use Types Packs/Day Years Used Date Smoking Tobacco: Never Assessed Sex Assigned at Date Recorded Not on file documented as of this encounter Plan of Treatment Not on filedocumented as of this encounter Visit Diagnoses Not on filedocumented in this encounter Care Teams Electronics Technician Relationship Specialty Start Date End Date Greyson Gonzalez MD PCP - General 04/15/01 12/23/03 [address] [place] [address] documented as of this encounter
--- OUTSIDE RECORDS SUMMARY | 2022-01-17 22:47 | XMS_ITS | Encounter Summary ---
:1965 Author Organization [facility] Address [address] [place] [address] Care Team Providers Name Role Phone Greyson Gonzalez MD Primary Care Provider Encounter Details Date Type Department Care Team Description 04/04/2002 Office Visit [facility] Lebron Mcgrath MD VERITO SSNG CHANGE SUTURE/STAPLE [...] sutures documented in this encounter Care Teams Foaming Machine Operator Relationship Specialty Start Date End Date Greyson Gonzalez MD PCP - General 04/15/01 12/23/03 [address] [place] [address] documented as of this encounter
--- OUTSIDE RECORDS SUMMARY | 2022-01-17 22:47 | XMS_ITS | Encounter Summary ---
:1965 Author Organization [facility] Address [address] [place] [address] Care Team Providers Name Role Phone Greyson Gonzalez MD Primary Care Provider Encounter Details Date Type Department Care Team Description 08/26/2002 Correspondence None Unknown, Physici an STEVEN [address] [address] (Wo rk) Social History Tobacco Use Types Packs/Day Years Used Date Smoking Tobacco: Never Alcohol Use Standard Drinks/Week Comments Not Asked 0 (1 standard drink = 0.6 oz pure alcoho l) Sex Assigned at Date Recorded Not on file documented as of this encounter Progress Notes Unknown, Physician - 08/26/2002 12:00 AM SPRAY CREW documented in this encounter Plan of Treatment Not on filedocumented as of this encounter Visit Diagnoses Not on filedocumented in this encounter Care Teams Human Services Instructor Relationship Specialty Start Date End Date Greyson Gonzalez MD PCP - General 04/15/01 12/23/03 [address] [place], [place] [address] documented as of this encounter
--- OUTSIDE RECORDS SUMMARY | 2022-01-17 22:47 | XMS_ITS | Encounter Summary ---
:1965 Author Organization [facility] Address [address] [place] [address] Care Team Providers Name Role Phone Greyson Gonzalez MD Primary Care Provider Encounter Details Date Type Department Care Team Description 10/14/2003 Office Visit [facility] Internal Greyson Gonzalez HEADACHE ; Julio Angeles MD DERMATOPHYTOSIS OF NAIL; [address] [place]SPEC[place] [address] [place], [place] [phone] [address] Social History Tobacco Use Types Packs/Day Years [...] Body Mass Index 29.26 09/02/2002 2:00 PM RECEIVING AND PROCESSING SUPERVISOR documented in this encounter Progress Notes 10/14/2003 [...] -NO Preventive Services up to date? -{YES/NO NEEDS:79115} Immunizations up to date? -{YES/NO,NEEDS:77901} Do you ever feel physically threatened or emotionally afraid? -NOT ASKED Tobacco Status reviewed? (see History Social-Substance) -NO steamtable attendant railroad offered? -NOT APPLICABLE. Aspirin taken daily? -NO BP was taken on the RIGHT arm. BP cuff size used? -Adult Regular Health Education given? -NO. Contact phone number [phone] (home) [phone] (work), alternate phone number- Esmer Berger LPN [...] eruption documented in this encounter Care Teams Glass Laminating Operator Relationship Specialty Start Date End Date Greyson Gonzalez MD PCP - General 04/15/01 12/23/03 [facility] [place] [address] documented as of this encounter
--- OUTSIDE RECORDS SUMMARY | 2022-01-17 22:47 | XMS_ITS | Encounter Summary ---
:1965 Author Organization [facility] Address [address], [place] [address] Care Team Providers Name Role Phone Greyson Gonzalez MD Primary Care Provider Encounter Details Date Type Department Care Team Description 09/16/2002 Telephone [facility] Greyson Romero MD 205 [facility] [address] [place] [address] [place], [place] [phone] (Wo rk) Social History Tobacco Use Types [...] on filedocumented in this encounter Care Teams Rate Examiner Relationship Specialty Start Date End Date Greyson Gonzalez MD PCP - General 04/15/01 12/23/03 [address] [place], [place] [address] documented as of this encounter
--- OUTSIDE RECORDS SUMMARY | 2022-01-17 22:47 | XMS_ITS | Encounter Summary ---
:1965 Author Organization [facility] Address [address] [place] [address] Care Team Providers Name Role Phone Greyson Gonzalez MD Primary Care Provider Encounter Details Date Type Department Care Team Description 2002 Office Visit [facility] Lebron Mcgrath MD [facility] [...] skin documented in this encounter Care Teams Inspector Soldering Relationship Specialty Start Date End Date Greyson Gonzalez MD PCP - General 04/15/01 12/23/03 [address] [place] [address] documented as of this encounter
--- OUTSIDE RECORDS SUMMARY | 2022-01-17 22:47 | XMS_ITS | Encounter Summary ---
:1965 Author Organization [facility] Address [address] [place] [address] Care Team Providers Name Role Phone Greyson Gonzalez MD Primary Care Provider Encounter Details Date Type Department Care Team Description 10/14/2001 Orders Only Yeyo Colin, DO [address] [place] [address] (Wo rk) Social History Tobacco [...] Organization Address City/State/ZIP Code Phon e Number [facility] [phone] [phone] (ABNORMAL) UA MICRO IF (10/14/2001 1:44 PM CDT) athologist Signature Appr Yellow [facility] Appr Clear [facility] Sp Gr 1.010 1.005 - [facility] 1.030 Leuk Sml (A) [facility] Nitr Neg [facility] pH 7.0 4.5 - 8.0 [facility] Prot Neg mg/dl [facility] Gluc Neg mg/dl [facility] Ket Neg mg/dl [facility] Urob 0.2 0.2 - 1.0 [facility] EU/dl Bili Neg [facility] Blood Tr (A) [facility] Specimen Anatomical Collection Method Collection Time Receive d Time (Source) Location / / Volume Laterality 10/14/2001 1:44 PM 2 1:45 CDT PM CDT Jose Colin DO LAB_1 Performing Organization Address City/State/[facility] Code Phon e Number [facility] [phone] [phone] documented in this encounter Visit Diagnoses Not on filedocumented in this encounter Care Teams Professor Of Art History Relationship Specialty Start Date End Date Greyson Gonzalez MD PCP - General 04/15/01 12/23/03 [address] [place] [address] documented as of this encounter
--- OUTSIDE RECORDS SUMMARY | 2022-01-17 22:47 | XMS_ITS | Encounter Summary ---
:1965 Author Organization [facility] Address [address] [place] [address] Care Team Providers Name Role Phone Jose Colin DO Primary Care Provider [phone] Encounter Details Date Type Department Care Team Description 12/24/2003 Office Visit [facility] Internal Med Jose Witt DERMATITIS NOS [address], DO [place], [place] [address] [address] [facility] [phone] [place] [address] (Wo rk) Social History Tobacco [...] Body Mass Index 30.18 09/02/2002 2:00 PM CADD INSTRUCTOR documented in this encounter Progress Notes 12/24/2003 [...] Status reviewed? (see History Social-Substance) -YES NEVER shower attendant offered? -NOT APPLICABLE. Aspirin taken daily? -NO BP was taken on the LEFT arm. BP cuff size used? -Adult Regular Health Education given? -NO. Contact phone number [phone] (home) [phone] (work), alternate phone number- Schuyler Thorpe LPN 12/24/2003 4:21 PM Current outpatient prescriptions: OMEPRAZOLE (PRILOSEC) 20MG ORAL CAPS,1 tablet daily,Disp: 30,Rfl: 99 FLUOCINONIDE (LIDEX) 0.05% OINTMENT,thin layer to rash on feet bid for up to three weeks,Disp: qs,Rfl: 0 NAPROXEN (NAPROSYN) 500MG ORAL TABS,one po bid,Disp: 14,Rfl: 0 Erythromycin Jose Colin - 12/24/2003 12:00 AM CDT<TRID:SPI> Doc Type<DT:IM> PT Name<NAME:Disha Choiine> <MRNo:[id number]> Dict ID<[id number]> <29:> Pt Tel #<30:> <28:> <BillNo:> Admit Date<4:12/24/2003> DD<5:> Svc Date<31:12/24/2003> <JobNo:[id number]> <TS:> <CC:> <21:0> Doc Status<RptStat:> Appt Clinic<1003:SP> [...] cause documented in this encounter Care Teams Special Investigation Unit Investigator Relationship Specialty Start Date End Date Jose Colin, DO PCP - General 12/24/03 09/17/08 [address] [place] [address] documented as of this encounter
--- OUTSIDE RECORDS SUMMARY | 2022-01-17 22:47 | XMS_ITS | Encounter Summary ---
:1965 Author Organization [facility] Address [address] [place] [address] Care Team Providers Name Role Phone Greyson Gonzalez MD Primary Care Provider Encounter Details Date Type Department Care Team Description 08/26/2002 Office Visit [facility] Internal Med Jose Witt, BURSITIS NEC [address] [place] [address] [address] [facility] [phone] [place] [address] (Wo rk) Social History Tobacco Use Types Packs/Day Years Used Date Smoking Tobacco: Never Alcohol Use Standard Drinks/Week Comments Not Asked 0 (1 standard drink = 0.6 oz pure alcoho l) Sex Assigned at Date Recorded Not on file documented as of this encounter Last Filed Vital Signs Vital Sign Reading Time Taken Comments Blood Pressure 110/56 08/26/2002 4:20 PM SENIOR BUSINESS DEVELOPMENT ANALYST Pulse 68 08/26/2002 4:20 PM SENIOR BUSINESS DEVELOPMENT ANALYST Temperature 36.2 ??C (97.2 ??F) 08/26/2002 4:20 PM SENIOR BUSINESS DEVELOPMENT ANALYST Respiratory Rate 20 08/26/2002 4:20 PM SENIOR BUSINESS DEVELOPMENT ANALYST Oxygen Saturation - - Inhaled Oxygen Concentration - - Weight - - Height - - Body Mass Index - - documented in this encounter Progress Notes 08/26/2002 4:20 PM SENIOR BUSINESS DEVELOPMENT ANALYST Megan Choi is here today for Injection R shoulder Are you having other pain today, that you want to discuss with the provider? -YES Preventive Services up to date? -{YES/NO NEEDS:01478} Immunizations up to date? -{YES/NO,NEEDS:28901} Do you ever feel physically threatened or emotionally afraid? -NO Tobacco Status reviewed? (see History Social-Substance) -YES canteen attendant offered? -NOT APPLICABLE. Aspirin taken daily? -NO BP was taken on the LEFT arm. Large cuff used? -NO Health Education given? -NO. Contact phone number [phone] (home) [phone] (work), alternate phone number . Schuyler ThorpeMONSE [...] IN SUMMARY: BURSITIS OF THE SHOULDER cc: OR BUSINESS DEVELOPMENT ANALYST documented in this encounter Plan of Treatment Not on filedocumented as of this encounter Visit Diagnoses Diagnosis Other bursitis disorders documented in this encounter Care Teams Sheet Metal Worker Supervisor Relationship Specialty Start Date End Date Greyson Gonzalez MD PCP - General 04/15/01 12/23/03 [address] [place] [address] documented as of this encounter
--- OUTSIDE RECORDS SUMMARY | 2022-01-17 22:47 | XMS_ITS | Encounter Summary ---
:1965 Author Organization [facility] Address [address], [place] [address] Care Team Providers Name Role Phone Greyson Gonzalez MD Primary Care Provider Encounter Details Date Type Department Care Team Description 08/13/2001 Office Visit [facility] Wilda Louise AB N GLUCOSE TOLERAN TEST; Clinic RDN, KIESHA PURE HYPERCHOLESTEROLEM; [address] [place] [address] [place], [place] [phone] (Wo rk) Social History Tobacco Use Types [...] nicer to get out. 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 OBJECTIVE: A 36-year-old woman, referred to the [...] glucose intolerance. cc: Wilda Louise RD, KIESHA ENTIONS ASSISTANT documented in this encounter Plan of Treatment Not on filedocumented as of this encounter Visit Diagnoses Diagnosis ABN GLUCOSE TOLERAN TEST Pure hypercholesterolemia Obesity, unspecified ([facility]) Obesity, unspecified documented in this encounter Care Teams Leather Stretcher Relationship Specialty Start Date End Date Greyson Gonzalez MD PCP - General 04/15/01 12/23/03 [address] [place] [address] documented as of this encounter
--- OUTSIDE RECORDS SUMMARY | 2022-01-17 22:47 | XMS_ITS | Encounter Summary ---
:1965 Author Organization [facility] Address [address], [place] [address] Care Team Providers Name Role Phone Greyson Gonzalez MD Primary Care Provider Encounter Details Date Type Department Care Team Description 07/26/2001 Office Visit [facility] Internal Med Juanito Chandra MD DERMATITIS NOS [address] [place] [address] Social History Tobacco Use Types [...] b.i.d. or t.i.d. IN SUMMARY: Dermatitis. cc: OUT MAN documented in this encounter Plan of Treatment Not on filedocumented as of this encounter Visit Diagnoses Diagnosis Contact dermatitis and other eczema, due to unspecified cause documented in this encounter Care Teams Hepatology Physician Relationship Specialty Start Date End Date Greyson Gonzalez MD PCP - General 04/15/01 12/23/03 [address] [place] [address] documented as of this encounter
--- OUTSIDE RECORDS SUMMARY | 2022-01-17 22:47 | XMS_ITS | Encounter Summary ---
:1965 Author Organization [facility] Address [address] [place] [address] Care Team Providers Name Role Phone Greyson Gonzalez MD Primary Care Provider Encounter Details Date Type Department Care Team Description 09/12/2002 Office Visit [facility] Internal Greyson Gonzalez, JOINT PAIN-SHLDER (Primary Dx); Medicine PAIN IN LIMB 205 [facility] [address] [place] [address] [place], [place] [phone] [address] Social History Tobacco Use Types Packs/Day Years Used Date Smoking Tobacco: Never Alcohol Use Standard Drinks/Week Comments Not Asked 0 (1 standard drink = 0.6 oz pure alcoho l) Sex Assigned at Date Recorded Not on file documented as of this encounter Last Filed Vital Signs Vital Sign Reading Time Taken Comments Blood Pressure 108/60 09/12/2002 4:20 PM TRANSPORTATION PLANNING TECHNICIAN Pulse 66 09/12/2002 4:20 PM TRANSPORTATION PLANNING TECHNICIAN Temperature - - Respiratory Rate 16 09/12/2002 4:20 PM TRANSPORTATION PLANNING TECHNICIAN Oxygen Saturation - - Inhaled Oxygen Concentration - - Weight 69.9 kg (154 lb) 09/12/2002 4:20 PM TRANSPORTATION PLANNING TECHNICIAN Height - - Body Mass Index 28.17 09/02/2002 2:00 PM TRANSPORTATION PLANNING TECHNICIAN documented in this encounter Progress Notes 09/12/2002 4:20 PM TRANSPORTATION PLANNING TECHNICIAN Megan Choi is here today for f/u R shoulder pain. Had steroid inj. only provided minimal relief for a few days, per pt. Are you having other pain today, that you want to discuss with the provider? -{PAIN YES/NO:90192} Preventive Services up to date? -{YES/NO NEEDS:16787} Immunizations up to date? -{YES/NO,NEEDS:34518} Do you ever feel physically threatened or emotionally afraid? -NO Tobacco Status reviewed? (see History Social-Substance) -YES ladies' locker room attendant offered? -NOT APPLICABLE. Aspirin taken daily? -NO BP was taken on the RIGHT arm. Large cuff used? -NO Health Education given? -{YES/NO:24830}. Contact phone number [phone] (home) [phone] (work), alternate phone number . Esmerjose Berger [...] RIGHT SHOULDER AND UPPER EXTREMITY PAIN cc: SPORTATION PLANNING TECHNICIAN documented in this encounter Procedure Notes Claritaclaritaloraine [...] limb documented in this encounter Care Teams Conservation Science Officer Relationship Specialty Start Date End Date Greyson Gonzalez MD PCP - General 04/15/01 12/23/03 [address] [place] [address] documented as of this encounter
--- OUTSIDE RECORDS SUMMARY | 2022-01-17 22:48 | XMS_ITS | Encounter Summary ---
:1965 Author Organization [facility] Address [address] [place] [address] Care Team Providers Name Role Phone Unassigned, Provider Primary Care Provider Unavailable Encounter Details Date Type Department Care Team Description 05/13/2001 Orders Only Blank Burleson APRN, DYEHOUSE WORKER [address] [place] [address] [place] [address] (Wo rk) Social History Tobacco [...] Re sults for this 8 HRS FASTING JUNIOR ACCOUNTING CLERK procedure are in the results section. documented in this encounter Results (ABNORMAL) GLUCOSE - FASTING > 8 HRS FASTING (05/13/2001 8:47 AM JUNIOR ACCOUNTING CLERK) [facility] Signature Glucose 119 (H) 70 - 110 [facility] mg/dl Hours Fasting 10 hours [facility] Specimen Anatomical Collection Method Collection Time Receive d Time (Source) Location / / Volume Laterality 05/13/2001 8:47 AM 1 8:48 JUNIOR ACCOUNTING CLERK AM JUNIOR ACCOUNTING CLERK Blank Perez APRN, CNP LAB_1 Performing Organization Address City/State/ZIP Code Phon e Number [facility] [phone] [facility] [address] [address] documented in this encounter Visit Diagnoses Not on filedocumented in this encounter Care Teams Rn Obgyn Relationship Specialty Start Date End Date Unassigned, Provider PCP - General 09/18/08 [address] [place] [address] documented as of this encounter
--- OUTSIDE RECORDS SUMMARY | 2022-01-17 22:48 | XMS_ITS | Encounter Summary ---
:1965 Author Organization [facility] Address [address] [place] [address] Care Team Providers Name Role Phone Juanito Panda MD Primary Care Provider Unavailable Encounter Details Date Type Department Care Team Description 12/20/2000 Orders Only [facility] Internal Med Juanito Chandra MD [address] [place] [address] Social History Tobacco Use Types Packs/Day Years Used Date Smoking Tobacco: Never Assessed Sex Assigned at Date Recorded Not on file documented as of this encounter Plan of Treatment Not on filedocumented as of this encounter Visit Diagnoses Not on filedocumented in this encounter Care Teams Meter Attendant Relationship Specialty Start Date End Date Juanito Panda MD PCP - General 07/30/00 1 documented as of this encounter
--- OUTSIDE RECORDS SUMMARY | 2022-01-17 22:48 | XMS_ITS | Encounter Summary ---
:1965 Author Organization [facility] Address [address] [place] [address] Care Team Providers Name Role Phone Juanito Panda MD Primary Care Provider Unavailable Encounter Details Date Type Department Care Team Description 03/28/2001 Office Visit [facility] Obstetrics Blank Perez, GYNECOLO GIC EXAMINATION; and Gynecology ASSISTANT CHIEF ENGINEER, NUCLEAR SCIENTIST SCREENING MAL NEOP-CERVIX 205 [facility] [address] [place] [address] [place], [place] [phone] [address] Social History Tobacco Use Types Packs/Day Years Used Date Smoking Tobacco: Never Assessed Sex Assigned at Date Recorded Not on file documented as of this encounter Progress Notes Blank Perez - 03/28/2001 12:00 AM CDTSUBJECTIVE: 36 year-old female comes in today for RHM. She is new to [facility]. She had a laminectomy in September involving C6 and C7. She has also had one section in 1987. Her children are 18, 17 and 13 and all healthy. Her one daughter is at college. Her father has HTN and diabetes and two [place]'s. He has had two open heart surgeries, [...] and HTN. May obtain the program through [employer] on prevention of diabetes. Patient will return in one year or prn. IN SUMMARY: RHM. cc: documented in this encounter Plan of Treatment Not on filedocumented as of this encounter Visit Diagnoses Diagnosis Gynecological examination Screening for malignant neoplasm of the cervix documented in this encounter Care Teams Automobile Racer Relationship Specialty Start Date End Date Juanito Panda MD PCP - General 07/30/000 1 documented as of this encounter
--- OUTSIDE RECORDS SUMMARY | 2022-01-17 22:48 | XMS_ITS | Encounter Summary ---
:1965 Author Organization [facility] Address [address] [address] Care Team Providers Name Role Phone Greyson Gonzalez MD Primary Care Provider Encounter Details Date Type Department Care Team Description 04/19/2001 Office Visit [facility] Obstetrics and Blank Perez, FORESTRY EXTENSION SPECIALIST , COUNSELING, HEALTH Gynecology [facility] 205 [facility] [address] [place] [address] [place], [place] [phone] (Wo rk) Social History Tobacco Use [...] results. IN SUMMARY: FOLLOW UP LAB cc: S TECHNICIAN documented in this encounter Plan of Treatment Not on filedocumented as of this encounter Visit Diagnoses Diagnosis Counseling NOS(V65.40) Counseling NOS documented in this encounter Care Teams Millwork Estimator Relationship Specialty Start Date End Date Greyson Gonzalez MD PCP - General 04/15/01 12/23/03 [address] [place] [address] documented as of this encounter
--- OUTSIDE RECORDS SUMMARY | 2022-01-17 22:48 | XMS_ITS | Encounter Summary ---
:1965 Author Organization [facility] Address [address] [place] [address] Care Team Providers Name Role Phone Juanito Panda MD Primary Care Provider Unavailable Reason for Visit Reason Comments NEW MEMBER VISIT VIA INTERFACE Encounter Details Date Type Department Care Team Description 08/10/2000 Office Visit [facility] INTERNAL MED II Juanito Panda, NEURALGIA/NEURITIS NOS [address] [place] [address] Social History Tobacco Use Types Packs/Day Years Used Date Smoking Tobacco: Never Assessed Sex Assigned at Date Recorded Not on file documented as of this encounter Progress Notes Juanito Panda - 08/10/2000 12:00 AM CSTS: This 35 year-old female is a new patient. We have received some records from [facility] on [place] in [place], which are reviewed. These document that in [...] She was referred to Dr. Brandt of [facility] Neurosurgery. She saw him on 06/14/00 and [...] trapezius and paracervical area is diffusely tender. Broadcast Operations Manager strength is slightly reduced on the right [...] an operative date has been decided. cc: LACER documented in this encounter Plan of Treatment Not on filedocumented as of this encounter Visit Diagnoses Diagnosis Neuralgia, neuritis, and radiculitis, un specified documented in this encounter Care Teams Grader Meat Relationship Specialty Start Date End Date Juanito Panda MD PCP - General 07/30/000 1 documented as of this encounter
--- OUTSIDE RECORDS SUMMARY | 2022-01-17 22:48 | XMS_ITS | Encounter Summary ---
:1965 Author Organization [facility] Address [address], [place] [address] Care Team Providers Name Role Phone Juanito Panda MD Primary Care Provider Unavailable Encounter Details Date Type Department Care Team Description 03/18/2001 Office Visit [facility] Internal Med Greyson Romero MD BACKACHE NOS; [address] [place] [address] [place], [place] [phone] (Wo rk) Social History Tobacco Use Types [...] as discussed. She is going to discontinue emkq-udb-rykxvlb ibuprofen and use Naprosyn 500 milligrams po [...] limb documented in this encounter Care Teams Leasing Agent Relationship Specialty Start Date End Date Juanito Panda MD PCP - General 07/30/00 1 documented as of this encounter
--- OUTSIDE RECORDS SUMMARY | 2022-01-17 22:48 | XMS_ITS | Encounter Summary ---
:1965 Author Organization [facility] Address [address] [place] [address] Care Team Providers Name Role Phone Juanito Panda MD Primary Care Provider Unavailable Encounter Details Date Type Department Care Team Description 09/21/2000 Office Visit HOSPITALIST PROGRAM Sg Pal, LOW BACK PAIN (CHRONIC)>6 WE EKS; [address] MBBS GASTRITIS/DUODEN NOS W/O HEMORRH SOUTH [address] [place], [place] [id number] [place] [address] (Wo rk) Social History Tobacco Use Types Packs/Day Years Used Date Smoking Tobacco: Never Assessed Sex Assigned at Date Recorded Not on file documented as of this encounter Plan of Treatment Not on filedocumented as of this encounter Visit Diagnoses Diagnosis Other unspecified back disorder Unspecified gastritis and gastroduodenit is without mention of hemorrhage documented in this encounter Care Teams Wrapper Selector Relationship Specialty Start Date End Date Juanito Panda MD PCP - General 07/30/00 1140 1 documented as of this encounter
--- OUTSIDE RECORDS SUMMARY | 2022-01-17 22:48 | XMS_ITS | Encounter Summary ---
:1965 Author Organization [facility] Address [address] [place] [address] Care Team Providers Name Role Phone Unassigned, Provider Primary Care Provider Unavailable Encounter Details Date Type Department Care Team Description 03/28/2001 Orders Only Blank Burleson APRN, [place] [address] [place], [place] [address] [place] [address] (Wo rk) Social History Tobacco [...] PAP SMEAR, ROUTINE (03/28/2001 9:30 AM CDT) [facility] Method Time Signature Pap Smear, See Separate Report [facility] Routine Performed at [facility] Specimen Anatomical Collection Method Collection Time Receive d Time (Source) Location / / Volume Laterality 03/28/2001 9:30 AM 11/14/200 1 CDT 12:22 PM CELL MANAGER Blank Perez APRN, CNP LAB_1 Performing Organization Address City/State/ZIP Code Phon e Number [facility] [phone] [facility] [address] [address] documented in this encounter Visit Diagnoses Not on filedocumented in this encounter Care Teams Procurement Cost Coordinator Relationship Specialty Start Date End Date Unassigned, Provider PCP - General 09/18/08 [address] [place] [address] documented as of this encounter
--- OUTSIDE RECORDS SUMMARY | 2022-01-17 22:48 | XMS_ITS | Encounter Summary ---
:1965 Author Organization [facility] Address [address] [place] [address] Care Team Providers Name Role Phone Juanito Panda MD Primary Care Provider Unavailable Encounter Details Date Type Department Care Team Description 03/28/2001 Orders Only [facility] Obstetrics and Anayeli Perez, CODE ENFORCEMENT OFFICER, PROFILE GRINDER Gynecology [address] [address] [place], [place] [address] [phone] Social History Tobacco Use Types Packs/Day Years Used Date Smoking Tobacco: Never Assessed Sex Assigned at Date Recorded Not on file documented as of this encounter Procedure Notes Sofia Lilly - 03/28/2001 12:00 AM CDTAssociated Order(s): [...] cc: AUDREY Moffett Radiology SP Blank Perez CODE ENFORCEMENT OFFICER, PROFILE GRINDER PAPS documented in this encounter Visit Diagnoses Not on filedocumented in this encounter Care Teams Crusher Operator Relationship Specialty Start Date End Date Juanito Panda MD PCP - General 07/30/00 1 documented as of this encounter
--- OUTSIDE RECORDS SUMMARY | 2022-01-17 22:48 | XMS_ITS | Encounter Summary ---
:1965 Author Organization [facility] Address [address] [address] Care Team Providers Name Role Phone Juanito Panda MD Primary Care Provider Unavailable Reason for Visit Reason Comments PRE-OP EXAM VIA INTERFACE Encounter Details Date Type Department Care Team Description 09/11/2000 Office Visit SP INTERNAL MED II Juanito Panda, DISC DIS NEC/NOS-UNSPEC; [address] [facility] [address] [place]; [place] [address] PREOP EXA M OTHER SPECIFIED; FOLLOW-UP EXAM [...] and symmetric in upper and lower extremities. Occupational Therapy Co Director strength is full and equal. Remainder of [...] examination documented in this encounter Care Teams Business Objects Analyst Relationship Specialty Start Date End Date Juanito Panda MD PCP - General 07/30/00 1 documented as of this encounter
--- OUTSIDE RECORDS SUMMARY | 2022-01-17 22:48 | XMS_ITS | Encounter Summary ---
:1965 Author Organization [facility] Address [address] [place] [address] Care Team Providers Name Role Phone Unassigned, Provider Primary Care Provider Unavailable Encounter Details Date Type Department Care Team Description 03/28/2001 Orders Only Blank Burleson, DREDGE LEVER OPERATOR, CONFIGURATION MANAGEMENT ADVISOR [address] [place], [place] [address] [place] [address] (Wo rk) Social History Tobacco [...] Perez APRN, CNP LAB_1 Performing Organization Address [facility]/ZIP Code Phon e Number [employer] [phone] [facility] [address] [place] [phone] TSH, SENSITIVE (03/28/2001 10:56 AM CDT) P athologist Signature TSH 1.59 0.30 - 5.00 [facility] uIU/ml Thyroid Meds No [facility] Specimen Anatomical Collection Method Collection Time Receive d Time (Source) Location / / Volume Laterality 03/28/2001 10:56 03/28/2001 AM CDT 10:57 AM CDT Blank Perez APRN, CNP LAB_1 Performing Organization Address [facility] Code Phon e Number [employer] [phone] [facility] [address] [place] [phone] TESTOSTERONE (03/28/2001 10:56 AM CDT) P athologist Signature Testosterone 34 20 - 80 [facility] ng/dl Specimen Anatomical Collection Method Collection Time Receive d Time (Source) Location / / Volume Laterality 03/28/2001 10:56 03/28/2001 AM CDT 10:57 AM CDT Blank Perez APRN, CNP LAB_1 Performing Organization Address [facility] Phon e Number [facility] [place] [place] [facility] [phone] [facility] [address] [place] [phone] HEMOGLOBIN, BLOOD (03/28/2001 10:56 AM CDT) P athologist Signature Hemoglobin 14.6 12.0 - 16.0 [facility] g/dl Specimen Anatomical Collection Method Collection Time Receive d Time (Source) Location / / Volume Laterality 03/28/2001 10:56 03/28/2001 AM CDT 10:57 AM CDT Blank Perez APRN, CNP LAB_1 Performing Organization Address City/[facility] Phon e Number [facility] [place] [place] [facility] [phone] [facility] [address] [place] [phone] (ABNORMAL) CHOLESTEROL LIPID PANEL FAST >12HR FAST (03/28/2001 10:56 AM CDT) Component Value Ref Test Analysis Performed At [facility] Range Method Time Signature Cholesterol 225 [...] CDT 10:57 AM CDT Blank Perez APRN, CONFIGURATION MANAGEMENT ADVISOR LAB_1 Performing Organization Address [facility] Phon e Number [facility] [place] [place] [facility] [phone] [address] documented in this encounter Visit Diagnoses Not on filedocumented in this encounter Care Teams Timber Management Professor Relationship Specialty Start Date End Date Unassigned, Provider PCP - General 09/18/[address] [place] [address] documented as of this encounter
--- OUTSIDE RECORDS SUMMARY | 2022-01-17 22:48 | XMS_ITS | Encounter Summary ---
:1965 Author Organization [facility] Address [address], [place] [address] Care Team Providers Name Role Phone Greyson Gonzalez MD Primary Care Provider Encounter Details Date Type Department Care Team Description 03/28/2001 Orders Only [facility] Obstetrics and Anayeli Giraldo, DECORATIVE CUTTING MACHINE TENDER, RETAIL ASSOCIATE MANAGER BILINGUAL Gynecology [address] [facility] 205 [facility] [place] [address] [place] [address] [phone] Social History Tobacco Use Types Packs/Day Years Used Date Smoking Tobacco: Never Assessed Sex Assigned at Date Recorded Not on file documented as of this encounter Plan of Treatment Not on filedocumented as of this encounter Procedures Procedure Name Priority Date/Time Associated Diagnosis Comme nts INSPECTING AND TESTING LEAD HAND CYTOLOGY Routine 03/28/2001 10:40 AM Results for this CDT procedure are i n the results section . documented in this encounter Results INSPECTING AND TESTING LEAD HAND CYTOLOGY (03/28/2001 10:40 AM CDT) [facility] Method Time Signature Batch Or Continuous Still Operator Cytology Batch Or Continuous Still Operator Cytology Report [facility] Patient Name: PADMINI CHOI Taken: 03/28/01 Received: 04/01/01 Reported: 04/23/01 Physician(s): BLANK GIRALDO ([id number]) ? [id number] Final Cytologic Diagnosis Cervical Endocervical,routine: ? Satisfactory for evaluation. ??Endocervical cells and/or squamous metaplastic cells ??present. This pap smear was sent to [facility], [address] [place] [address] ??[place] ??[phone] for evaluation. ?? Their results are as follows. ? WITHIN NORMAL LIMITS (WNL) ? Comment qcs/04/23/01 Electronically Signed Out By AMEE, [email or web address], [email or web address] ? Source of Specimen(s) Cervical Endocervical,routine [...] Organization Address City/State/ZIP Code Phon e Number [address] [address] [place], [place] [phone] documented in this encounter Visit Diagnoses Not on filedocumented in this encounter Care Teams Medical Surgery Nurse Relationship Specialty Start Date End Date Greyson Gonzalez MD PCP - General 04/15/01 12/23/03 [address] [place], [place] [phone] documented as of this encounter
--- OUTSIDE RECORDS SUMMARY | 2022-01-17 22:48 | XMS_ITS | Encounter Summary ---
:1965 Author Organization [facility] Address [address], [place] [address] Care Team Providers Name Role Phone Greyson Gonzalez MD Primary Care Provider Encounter Details Date Type Department Care Team Description 05/01/2001 Office Visit [place] home supervisor Ult rasound IRREGULAR MENSTRUATION [address] [place], [place] [address] Social History Tobacco Use Types Packs/Day Years Used Date Smoking Tobacco: Never Assessed Sex Assigned at Date Recorded Not on file documented as of this encounter Progress Notes Alfredo Mcmahon - 05/01/2001 12:00 AM CSTThis Document has been Canceled. SH CENTRE MANAGER documented in this encounter Plan of Treatment Not on filedocumented as of this encounter Visit Diagnoses Diagnosis Irregular menstrual cycle documented in this encounter Care Teams Brilliandeer Looper Relationship Specialty Start Date End Date Greyson Gonzalez MD PCP - General 04/15/01 12/23/03 [address] [place], [place] [phone] documented as of this encounter
--- OUTSIDE RECORDS SUMMARY | 2022-01-17 22:48 | XMS_ITS | Encounter Summary ---
:1965 [facility] Address [address] [place] [address] Care Team Providers Name Role Phone Unassigned, Provider Primary Care Provider Unavailable Encounter Details Date Type Department Care Team Description 04/22/2001 Orders Only Blank Burleson, FISHER TROLL LINE, DRUG ABUSE RESISTANCE EDUCATION OFFICER [address] [place], [place] [phone] [place] [address] (Wo rk) Social History Tobacco Use Types Packs/Day Years Used Date Smoking Tobacco: Never Assessed Sex Assigned at Date Recorded Not on file documented as of this encounter Plan of Treatment Not on filedocumented as of this encounter Procedures Procedure Name Priority Date/Time Associated Diagnosis Comme nts INSULIN,SERUM Routine 04/22/2001 7:26 AM Results for this [facility]ATER [facility]ACKER procedure are i n the results section. LH Routine 04/22/2001 7:26 AM Results f or this [facility]ATER [facility] PACKER procedure are i n the results section. FSH Routine 04/22/2001 7:26 AM Results f or this CRATER AND PACKER procedure are i n the results section. GLUCOSE - FASTING > Routine 04/22/2001 7:26 AM Re sults for this 8 HRS FASTING CRATER [facility] PACKER procedure are in the results section. documented in this encounter Results INSULIN,SERUM (04/22/2001 7:26 AM CRATER AND PACKER) [facility] Method Time Signature Insulin, 16 MIU/L [facility] Serum Insulin, Reference [facility] Serum range: 6 to 27 Comment Referred to [facility], [address] [facility] [place], [place] Specimen Anatomical Collection Method Collection Time Receive d Time (Source) Location / / Volume Laterality 04/22/2001 7:26 AM 1 7:27 CRATER AND PACKER AM CRATER AND PACKER Blank Perez APRN, CNP LAB_1 Performing Organization Address City/[facility] Phon e Number [facility] [place] [phone] [phone] (ABNORMAL) GLUCOSE - FASTING > 8 HRS FASTING (04/22/2001 7:26 AM CRATER AND PACKER) Analysis Performed At Patho logist Time Signature Glucose 136 (H) 70 - 110 [facility] mg/dl Hours Fasting 13 hours [facility] Specimen Anatomical Collection Method Collection Time Receive d Time (Source) Location / / Volume Laterality 04/22/2001 7:26 AM 1 7:27 CRATER AND PACKER AM CRATER AND PACKER Blank Perez APRN, CNP LAB_1 Performing Organization Address [facility] Phon e Number [employer] [phone] [phone] LH (04/22/2001 7:26 AM CRATER AND PACKER) [facility] Method Time Signature LH 6.1 mIU/ml [facility] LH Expected Values- [facility] Prepubertal: ??<6.0 Follicular: ??1.9-12.5 Midcycle: ??8.7-76.3 Luteal: ??<1.0-16.9 Postmenopausal: ??5.0-52.3 Specimen Anatomical Collection Method Collection Time Receive d Time (Source) Location / / Volume Laterality 04/22/2001 7:26 AM 1 7:27 CRATER AND PACKER AM CRATER AND PACKER Blank Perez APRN, CNP LAB_1 Performing Organization Address [facility] Phon e Number [facility] [phone] [phone] FSH (04/22/2001 7:26 AM CRATER AND PACKER) [facility] Method Time Signature FSH 5.5 mIU/ml [facility] FSH Expected Values- [facility] Prepubertal: ??<5.0 Follicular: ??2.5-10.2 Midcycle: ??3.4-33.4 Luteal: ??1.5-9.1 Postmenopausal: ??23.0-116.3 Specimen Anatomical Collection Method Collection Time Receive d Time (Source) Location / / Volume Laterality 04/22/2001 7:26 AM 1 7:27 CRATER AND PACKER AM CRATER AND PACKER Blank Perez FISHER TROLL LINE, DRUG ABUSE RESISTANCE EDUCATION OFFICER LAB_1 Performing Organization Address City/State/ZIP Code Phon e Number [facility] [phone] [facility] [address] [phone] documented in this encounter Visit Diagnoses Not on filedocumented in this encounter Care Teams Boiling House Hand Relationship Specialty Start Date End Date Unassigned, Provider PCP - General 09/18/08 [address] [place] [address] documented as of this encounter
--- OUTSIDE RECORDS SUMMARY | 2022-01-17 22:48 | XMS_ITS | Encounter Summary ---
:1965 Author Organization [facility] Address [address], [place] [address] Care Team Providers Name Role Phone Greyson Gonzalez MD Primary Care Provider Encounter Details Date Type Department Care Team Description 05/01/2001 Orders Only [facility] Obstetrics and Anayeli Perez, STAFFING DIRECTOR, PNEUMATIC TOOL REPAIRER Gynecology [address] [place] [address] [place] [address] [phone] Social History Tobacco Use Types Packs/Day Years Used Date Smoking Tobacco: Never Assessed Sex Assigned at Date Recorded Not on file documented as of this encounter Procedure Notes Alfredo Mcmahon - 05/01/2001 12:00 AM CSTAssociated Order(s): ECHO EXAMINATION PROCEDURE TAPE NO: [id number] REFERRING PHYSICIAN: This patient was sent to [...] ESSENTIALLY NORMAL PELVIC ULTRASOUND cc: AUDREY Moffett ATIONS ARCHITECT documented in this encounter Plan of Treatment Not on filedocumented as of this encounter Procedures Procedure Name Priority Date/Time Associated Diagnosis Comme nts UNLISTED ULTRASOUND 05/01/2001 Results for this PROCEDURE procedure are i n the results section . documented in this encounter Results ECHO EXAMINATION PROCEDURE (05/01/2001) Anatomical Region Laterality Modality Other Transcriptions Alfredo Mcmahon - 05/01/2001 12:00 AM OPERATIONS ARCHITECT TAPE NO: [id number] REFERRING PHYSICIAN: This patient was se nt [...] UL TRASOUND cc: AUDREY Moffett Blank Perez STAFFING DIRECTOR, PNEUMATIC TOOL REPAIRER PROC_2 documented in this encounter Visit Diagnoses Not on filedocumented in this encounter Care Teams Air Tester Relationship Specialty Start Date End Date Greyson Gonzalez MD PCP - General 04/15/01 12/23/03 [address] [place] [address] documented as of this encounter
--- OUTSIDE RECORDS SUMMARY | 2022-01-17 22:48 | XMS_ITS | Encounter Summary ---
:1965 Author Organization [facility] Address [address] [place] [address] Care Team Providers Name Role Phone Unassigned, Provider Primary Care Provider Unavailable Encounter Details Date Type Department Care Team Description 09/11/2000 Orders Only Juanito Young MD [address] [place], [place] [phone] Social History Tobacco Use [...] Results EKG TRACING (09/11/2000 4:50 PM CDT) [facility] Method Time Signature EKG See Separate [facility] Report Specimen Anatomical Collection Method Collection Time Receive d Time (Source) Location / / Volume Laterality 09/11/2000 4:50 PM 1 4:53 CDT PM CDT Juanito Panda MD EKG Performing Organization Address City/State/ZIP Code Phon e Number [facility] [phone] [facility] [address] [phone] documented in this encounter Visit Diagnoses Not on filedocumented in this encounter Care Teams Bead Builder Relationship Specialty Start Date End Date Unassigned, Provider PCP - General 09/18/08 [address] [place] [address] documented as of this encounter
--- OUTSIDE RECORDS SUMMARY | 2022-01-17 22:48 | XMS_ITS | Encounter Summary ---
:1965 Author Organization [facility] Address [address], [place] [address] Care Team Providers Name Role Phone Juanito Panda MD Primary Care Provider Unavailable Encounter Details Date Type Department Care Team Description 03/18/2001 Orders Only [facility] Internal Med Greyson Romero MD 205 [facility] [address] [place] [address] [place] [address] [phone] (Wo rk) Social History Tobacco Use Types Packs/Day Years Used Date Smoking Tobacco: Never Assessed Sex Assigned at Date Recorded Not on file documented as of this encounter Plan of Treatment Not on filedocumented as of this encounter Visit Diagnoses Not on filedocumented in this encounter Care Teams Car Salesman Relationship Specialty Start Date End Date Juanito Panda MD PCP - General 07/30/000 1 documented as of this encounter
== END 2022-01-10 17:30 | disposition home or self-care (01) ==
PROVIDERS: Emergency Provider Family Medicine; PCP Nurse Practitioner Family
DX: R07.9 Chest pain, unspecified (principal); K21.9 Gastro-esophageal reflux disease without esophagitis
CPT/HCPCS: 36415; 71046; 76705; 80048; 81001; 83880; 84484; 85025; 85379; 85610; 85730; 86140; 93005; 96374; 99284; 99285; J1885; J7030

== ENCOUNTER 2022-01-16 14:51 | Outpatient (CLI) | payer BC, SELFPAY | END 2022-01-16 14:52 | disposition home or self-care (01) | LOC: RAD 14:52 | PROVIDERS: PCP Nurse Practitioner Family; Visit Provider Nurse Practitioner Family | DX: R07.89 Other chest pain (principal) | CPT/HCPCS: 93306 ==

== ENCOUNTER 2022-02-02 09:04 | Outpatient (CLI) | payer BC, SELFPAY ==
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
--- OUTSIDE RECORDS SUMMARY | 2022-02-02 09:07 | XMS_ITS | Encounter Summary ---
:1965 Author Organization [facility] Address [address] [place] [address] Care Team Providers Name Role Phone Unavailable Primary Care Provider Unavailable Encounter Details Date Type Department Care Team Description 10/11/2021 Clinical Communication Department of [facility], Pcp Medicine, [facility], in [address] [phone] Social History Tobacco Use Types Packs/Day Years Used Date Smoking Tobacco: Never Assessed Sex Assigned at Date Recorded Female 11/16/2021 10:41 AM CDT documented as of this encounter Plan of Treatment Upcoming Encounters Date Type Specialty Care Team Description 03/02/2022 Appointment Sleep Medicine Chrissie Paredes M.D., [facility] [address] [place] [phone] (Racquel morrison) 03/03/2022 Appointment Sleep Medicine Chrissie Paredes M.D., [facility] [address] [place] [phone] (Racquel rk) 03/16/2022 Office Visit Neurology Chrissie Paredes M.D., [facility] [address] [place] [phone] (Racquel rk) documented as of this encounter Visit Diagnoses Not on filedocumented in this encounter
--- OUTSIDE RECORDS SUMMARY | 2022-02-02 09:07 | XMS_ITS | Clinical Summary ---
:1965 Author Organization [facility] Address [address] [place] [address] Care Team Providers Name Role Phone Unavailable Primary Care Provider Unavailable Source Comments Patient records contain information from all sites at [facility]. For routine questions regarding patient records, call [phone] during business hours, M-F 8:00 AM - 5:00 PM Central Time. Record requests for emergency care only can be directed to [phone] at any time.[facility] Allergies Active Allergy Reactions Severity Noted [...] Sleep Medicine Chrissie Paredes M.D., [facility] [address] [phone] (Wo rk) 03/03/2022 Appointment Sleep Medicine Chrissie Paredes M.D., [facility] [address] [phone] (Wo rk) 03/16/2022 Office Visit Neurology Chrissie Paredes M.D., [facility] [address] [phone] (Wo rk) Health Maintenance [...] 01/13/2020, Diabetes Screening 11/06/2019, Additional history exists Lipid (Cholesterol) 08/08/2024 08/08/2019, 04/09/2018 Screening Cervical Cancer Screening 10/14/2024 10/14/2021 DTaP,Tdap,and Td Vaccines 03/23/2026 03/23/2016, 03/23/2016 , (2 - Td or Tdap) 06/16/2005 Pneumococcal vaccine (0-64 Aged Out 10/06/2014 No lo nger eligible years) based on patient 's age to complete this topic Insurance Payer Benefit Plan / Subscriber ID Effective Dates Phone Addre ss Type Group [place] [id number] 2016-Raisa [phone] [id number] O BLUE SHIELD t [address] [place] [address]
--- OUTSIDE RECORDS SUMMARY | 2022-02-02 09:07 | XMS_ITS | Encounter Summary ---
:1965 Author Organization [facility] Address [address] [place] [address] Care Team Providers Name Role Phone Unavailable Primary Care Provider Unavailable Encounter Details Date Type Department Care Team Description 01/26/2021 [facility], Pain Joint (Primary AND CLINICS John Montero Dx) [address] [facility] [address] [place] [address] [place], [place] [phone] Social History Tobacco Use Types Packs/Day Years Used Date Smoking Tobacco: Never Assessed Sex Assigned at Date Recorded Female 11/16/2021 10:41 AM CDT documented as of this encounter Plan of Treatment Upcoming Encounters Date Type Specialty Care Team Description 03/02/2022 Appointment Sleep Medicine Chrissie Paredes M.D., [facility] [address] [place] [phone] (Racquel morrison) 03/03/2022 Appointment Sleep Medicine Chrissie Paredes M.D., [facility] [address] [place] [phone] (Racquel morrison) 03/16/2022 Office Visit Neurology Chrissie Paredes M.D., [facility] [address] [place] [phone] (Racquel morrison) documented as of this encounter Visit Diagnoses Diagnosis Pain Joint - Primary documented in this encounter
--- OUTSIDE RECORDS SUMMARY | 2022-02-02 09:07 | XMS_ITS | Encounter Summary ---
:1965 Author Organization [facility] Address [address] [place] [address] Care Team Providers Name Role Phone Noreen Hills APRN AIDS SOCIAL WORKER Unavailable [phone] Noreen Hills APRN AIDS SOCIAL WORKER Primary Care Provider [phone] Reason for Visit Reason Comments Medication Refill Encounter Details Date Type Department Care Team Description 12/08/2021 Refill [facility] Noreen Hills, Medication Refill Pino ESTRADA AIDS SOCIAL WORKER [address] [facility] [address] [place] [address] [address] [place] [address] [place] [address] [phone] Social History Tobacco Use Types Packs/Day Years [...] How often do you attend caodaism or episcopal Patient refused 08/08/2019 services? Do [...] and she goes to the clinic in [place]. Please remove the pended med.Thank you. Lainey [...] as of this encounter Care Teams Aix Administrator Relationship Specialty Start Date End Date Noreen Hills APRN AIDS SOCIAL WORKER PCP - General Nurse Practitioner 01/09/19 12/12/[address] [place] [address] [place] [address] Noreen Hills APRN AIDS SOCIAL WORKER Assigned PCP 06/16/[address] [place] [address] [place] [id number] documented as of this encounter
--- OUTSIDE RECORDS SUMMARY | 2022-02-02 09:07 | XMS_ITS | Encounter Summary ---
:1965 Author Organization [facility] Address [address] [place] [address] Care Team Providers Name Role Phone Noreen Hills APRN, CNP Unavailable [phone] Noreen Hills APRN, CNP Primary Care Provider [phone] Marcelo Artis PA-C Unavailable [phone] Reason for Visit Reason Comments Medication Refill Encounter Details Date Type Department Care Team Description 08/06/2021 Refill [facility] Noreen Hills Medication Refill Pino ESTRADA DAIRY SPECIALIST [address] [place] [address] [place] [address] [phone] Social History Tobacco Use Types Packs/Day Years [...] How often do you attend hinduism or mu-ism Patient refused 08/08/2019 services? Do [...] 08/08/2021 2:33 PM CST Prescription approved per [facility] Refill Protocol. Marisa Panda RN T SURGEON documented in this encounter Plan of Treatment Not on filedocumented as of this encounter Visit Diagnoses Diagnosis Gastroesophageal reflux disease without esophagitis Esophageal reflux documented in this encounter Additional Health Concerns Assessment Noted Time PHQ-9 Depression Total Score: 7 11/10/2020 1:31 PM CDT documented as of this encounter Care Teams Validation Architect Relationship Specialty Start Date End Date Noreen Hills PCP - General Nurse Practitioner 01/09/19 12/12/21 SEAN Haley DAIRY SPECIALIST [address] [facility] [place] [address] Noreen Hills Assigned PCP 06/16/18 SEAN Haley DAIRY SPECIALIST [address] [facility] [place] [address] Marcelo Artis Assigned Musculoskeletal 08/25/20 08/20/21 MIKAYLA Nuno Provider [address] [address] documented as of this encounter
--- OUTSIDE RECORDS SUMMARY | 2022-02-02 09:07 | XMS_ITS | Clinical Summary ---
:1965 Author Organization [facility] Address [address] [place] [address] Care Team Providers Name Role Phone Noreen Hills APRN BUSHWALKING GUIDE Unavailable Allergies Active Allergy Reactions Severity Noted [...] use of insulin (H) fluticasone (FLONASE) 50 [place] 1-2 sprays into 16 g 11 Active [...] use. Address next visit Family history of [place] (myocardial infarction) 8 Overview: At early age, father [place] at age 40 Resolved Problems Problem Noted [...] Description 12/08/2021 Refill IM/Peds Jeana, Noreen Sudha, GLASS SILVERER BUSHWALKING GUIDE Medication Refill from Last 3 Months Immunizations [...] 4 Kidney Disease Brother 5 Cardiovascular Father [place] early 40s, subseq uent bipass Diabetes Father Hypertension Father Lipids Father Diabetes Maternal Grandfather Hypertension Maternal Grandfather Lipids Maternal Grandfather Diabetes Maternal Grandmother Hypertension Maternal Grandmother Lipids Maternal Grandmother Arthritis Mother OA Cardiovascular Mother [place] age 72 Diabetes Mother Type II Hypertension [...] How often do you attend uatsdin or adventism Patient refused 08/08/2019 services? Do [...] ss Type Group BCBS BCBS OUT OF [id number] 2016-Present [phone] [address] [address] [place] [address] Megan Choi Medication Self 1965 [address] ([place]) [place] [address] Care Teams Filter Press Tender Relationship Specialty Start Date End Date Noreen Hills APRN BUSHWALKING GUIDE Assigned PCP 06/16/[address] [facility] [place] [address]
--- OUTSIDE RECORDS SUMMARY | 2022-02-02 09:07 | XMS_ITS | Encounter Summary ---
:1965 Author Organization [facility] Address [address] [place] [address] Care Team Providers Name Role Phone Unavailable Primary Care Provider Unavailable Reason for Visit Reason Comments Triage Encounter Details Date Type Department Care Team Description 02/01/2021 Clinical Communication Division of Rheumatology Zachary Parks Triage in [facility] gem WANG M.D. [address] [facility] [address] [place], [place] [address] [place], [place] [phone] Social History Tobacco Use Types Packs/Day Years [...] chart Scheduling Priority: Send Response to: T [facility] SCHEDULING Name: Megan Choi [facility] Number: [id number] Birthdate: 1965 Email: Rheumatology Model of Care [...] are your goals for your visit to [facility]: To find out why I'm in so much pain all the time especially in my joints and why I am always swollen every morning when I wake up and continue to be much more so by the time I go to bed at night. Who is referring you to [facility] (provide name and address): Dr. Rosangela Cho Is this a Cardiac Care Unit Nurse: No Is this your local provider that you would like us to communicate with: Yes What are your goals for your visit to [facility]: To find out why I'm in so [...] you should see any specialists while at [facility]: Yes Please list any specialists that you or your local provider feel you should see while you are at [facility] and explain: Lico Sharpe How would you [...] best phone number to reach you at: [phone] documented in this encounter Plan of Treatment Upcoming Encounters Date Type Specialty Care Team Description 03/02/2022 Appointment Sleep Medicine Chrissie Paredes M.D., [facility] [address] [place] [phone] (Racquel morrison) 03/03/2022 Appointment Sleep Medicine Chrissie Paredes M.D., [facility] [address] [place] [phone] (Racquel morrison) 03/16/2022 Office Visit Neurology Chrissie Paredes M.D., [facility] [address] [place] [phone] (Wo rk) documented as of this encounter Visit Diagnoses Not on filedocumented in this encounter
--- OUTSIDE RECORDS SUMMARY | 2022-02-02 09:07 | XMS_ITS | Encounter Summary ---
:1965 Author Organization [facility] Address [address] [place] [address] Care Team Providers Name Role Phone Unavailable Primary Care Provider Unavailable Encounter Details Date Type Department Care Team Description 11/16/2021 Orders Only Department of Neurology in [facility] [place] L.P.N. [address] [place] [phone] [place] [address] Social History Tobacco Use Types Packs/Day Years Used Date Smoking Tobacco: Never Smokeless Tobacco: Never Sex Assigned at Date Recorded Female 11/16/2021 10:41 AM CDT documented as of this encounter Plan of Treatment Upcoming Encounters Date Type Specialty Care Team Description 03/02/2022 Appointment Sleep Medicine Chrissie Paredes M.D., [facility] [address] [place] [phone] (Racquel morrison) 03/03/2022 Appointment Sleep Medicine Chrissie Paredes M.D., [facility] [address] [place] [phone] (Racquel morrison) 03/16/2022 Office Visit Neurology Chrissie Paredes M.D., [facility] [address] [place] [phone] (Racquel morrison) documented as of this encounter Visit Diagnoses Not on filedocumented in this encounter
--- OUTSIDE RECORDS SUMMARY | 2022-02-02 09:08 | XMS_ITS | Encounter Summary ---
:1965 Author Organization [facility] Address [address] [place] [address] Care Team Providers Name Role Phone Noreen Hills APRN, CNP Unavailable [phone] Noreen Hills APRN, CNP Primary Care Provider [phone] Kalyan Galvan Unavailable Unavailable Eduardo Sharma MD Unavailable Marcelo Artis PA-C Unavailable [phone] Reason for Visit Reason Onset Date Comments Panel Management 04/04/2021 phys,pap, colon, thomas mo, PHQ9, Diab f/u, Imm Encounter Details Date Type Department Care Team Description [facility]/04[facility] [facility] Pino Haley APRN CNP (phys,pap, colon, [address] [place] [address] [facility] mammo , PHQ9, Diab f/u, [facility] [address] Imm) [address] [place] [address] [place] [address] [phone] Social History Tobacco Use Types Packs/Day Years [...] Influenza and Shingrix Type of outreach: Sent Domobios message. Questions for provider review: None Christi Panda CMA Chart routed to Care Team. documented in this encounter Plan of Treatment Not on filedocumented as of this encounter Visit Diagnoses Not on filedocumented in this encounter Additional Health Concerns Assessment Noted Time PHQ-9 Depression Total Score: 7 11/10/2020 1:31 PM CDT documented as of this encounter Care Teams Heating And Blending Supervisor Relationship Specialty Start Date End Date Noreen Hills PCP - General Nurse Practitioner 01/09/19 12/12/21 SEAN Haley ELECTRONIC TEST TECHNICIAN [address] [facility] [place] [address] Noreen Hills Assigned PCP 06/16/18 SEAN Haley ELECTRONIC TEST TECHNICIAN [address] [facility] [place] [address] Kalyan Galvan Personal Advocate & 08/08/19 Liaison (PAL) Eduardo Sharma MD Assigned Sleep Provider 04/02/20 05/07/21 [address] [place], [place] [id number] Marcelo Artis Assigned Musculoskeletal 08/25/20 08/20/21 MIKAYLA Nuno Provider [address] [facility] [address] [place], [place] [address] documented as of this encounter
--- OUTSIDE RECORDS SUMMARY | 2022-02-02 09:08 | XMS_ITS | Encounter Summary ---
:1965 Author Organization [facility] Address [address] [place] [address] Care Team Providers Name Role Phone Noreen Hills APRN SPRAY CEMENTER Unavailable [phone] Noreen Hills APRN SPRAY CEMENTER Primary Care Provider [phone] Kalyan Galvan Unavailable Unavailable Lashae Trevino [facility] Unavailable [phone] Eduardo Sharma MD Unavailable Rios Monteiro MD Unavailable Reason for Visit Reason Comments Urgent Care UTI Pt is c/o that she has been having pain with urination and urinary frequency since Sunday. She noticed some blood on tissue when she wiped after urinating. She has not had a fever. Encounter Details Date Type Department Care Team Description 07/17/[address] [facility] Steph Sunny, Acute UTI (Primary Dx); Urgent Care Pino Alejandro PA-C Dysuria; [address] Nonspecific finding on examination of [place], [place] [address] [address] [place] [address] Social History Tobacco Use [...] How often do you attend uatsdin or worship Patient refused 08/08/2019 services? Do you belong to any clubs or organizations such as No 08/08/2019 uatsdin groups, Cell>Points, [employer]end [employer] Plan or athletic groups, or school groups? How [...] with No / Unsure 07/17/2020 1:32 PM SURGERY ATTENDANT someone who was confirmed or suspected to have Coronavirus / COVID-19? documented as of this encounter Last Filed Vital Signs Vital Sign Reading Time Taken Comments Blood Pressure 132/70 07/17/2020 1:44 PM SURGERY ATTENDANT Pulse 94 07/17/2020 1:44 PM SURGERY ATTENDANT Temperature 36.8 ??C (98.3 ??F) 07/17/2020 1:44 PM SURGERY ATTENDANT Respiratory Rate 12 07/17/2020 1:44 PM SURGERY ATTENDANT Oxygen Saturation 96% 07/17/2020 1:44 PM SURGERY ATTENDANT Inhaled Oxygen Concentration - - Weight 80.3 kg (177 lb) 07/17/2020 1:44 PM SURGERY ATTENDANT Height - - Body Mass Index 32.37 01/12/2020 3:45 PM CDT documented in this encounter Patient Instructions Patient InstructionsStaci Herrera PA-C - 07/17/2020 1:35 PM SURGERY ATTENDANT Images from the original note were not included. (N39.0) Acute UTI (primary encounter diagnosis) Comment: Plan: cefdinir (OMNICEF) 300 MG capsule, fluconazole (DIFLUCAN) 150 MG tablet (R30.0) Dysuria Comment: Plan: *UA reflex to Microscopic and Culture ([place] and [facility] (except [place] and [place]), Urine Microscopic Patient Education Understanding Urinary Tract [...] toreach the bladder or kidneys in men. FFWD last reviewed this educational content on 06/11/2019 ?? [id number] [employer]. [address] [place] [address], [place] [address]. All rights reserved. This information is not intended as a substitute for professional medical care. Always follow your healthcare professional's instructions. ERY ATTENDANT documented in this encounter Progress Notes Staci [...] Plan: *UA reflex to Microscopic and Culture ([place] and [facility] (except [place] and [place]), Urine Microscopic See orders in [facility] If not improving or if condition worsens, [...] pain SKIN: no suspicious lesions or rashes ERY ATTENDANT documented in this encounter Nursing Notes Blank [...] completed using cuff size: kait Burgos R.N. ERY ATTENDANT documented in this encounter Plan of Treatment Not on filedocumented as of this encounter Procedures Procedure Name Priority Date/Time Associated Diagnosis Comme nts URINE CULTURE Routine 07/17/2020 2:16 PM Nonspecific finding R esults for this SURGERY ATTENDANT on examination of procedure are in urine the results section. URINE MICROSCOPIC Routine 07/17/2020 2:03 PM Dysuria Resu lts for this SURGERY ATTENDANT procedure are i n the results section. UA MACROSCOPIC WITH Routine 07/17/2020 2:03 PM Dysuria Re sults for this REFLEX TO SURGERY ATTENDANT procedure are i n MICROSCOPIC AND the results CULTURE section. documented in this encounter Results (ABNORMAL) Urine Culture Aerobic Bacterial (07/17/2020 2:16 PM SURGERY ATTENDANT) Component Value Ref Test Analysis Performed At Patholo gist [facility] Method Time Signature Specimen Midstream Urine INFECTIOUS Description DISEASES [facility], [facility] Special Specimen 07/18/2020 INFECTIOUS Requests received in 6:51 PM SURGERY ATTENDANT DISEASES preservative DIAGNOSTIC [facility], [facility] Culture Micro 10,000 to 50,000 colonies/mL 021 INFECTIOUS Escherichia coli 10:02 PM DISEASES (A) SURGERY ATTENDANT DIAGNOSTIC LAB[facility]AT[facility], [facility] Specimen (Source) Anatomical Collection Method Collection Time Re ceived Time Location / / Volume Laterality Examination of 07/17/2020 2:16 07/17/2020 2:17 midstream urine PM SURGERY ATTENDANT PM SURGERY ATTENDANT specimen (procedure) Organism Antibiotic Method Susceptibility Escherichia [...] MICRO GENERAL ORDE RABASAF Performing Organization Address City/[facility]/ZIP Code Phon e Number INFECTIOUS DISEASES DIAGNOSTIC [address] [facility] [address] [address] LABORATORY, [facility] (ABNORMAL) Urine Microscopic (07/17/2020 2:03 PM SURGERY ATTENDANT) [facility] gist Method Time Signature WBC Urine 50-100 (A) OTO5^0 - 5 07/17/2020 [facility] /HPF 2:15 PM SURGERY ATTENDANT [facility] [place] RBC Urine 25-50 (A) OTO2^O - 2 07/17/2020 [facility] /HPF 2:15 PM SURGERY ATTENDANT [facility] [place] Squamous Few FEW^Few 07/17/2020 [facility] Epithelial /LPF /LPF 2:15 PM SURGERY ATTENDANT [facility]INICS [place] N Urine Renal Tub Epi Few (A) NEG^Negati 07/17/2020 [facility] ve /HPF 2:15 PM SURGERY ATTENDANT [facility] [place] Bacteria Urine Many (A) NEG^Negati 07/17/2020 [facility] ve /HPF 2:15 PM SURGERY ATTENDANT [facility] [place] Specimen Anatomical Collection Method Collection Time Receive d Time (Source) Location / / Volume Laterality 07/17/2020 2:03 PM 2:04 SURGERY ATTENDANT PM SURGERY ATTENDANT Staci Correa PA-C LAB - URINE ORDERABLES Performing Organization Address City/[facility] Phon e Number [facility] [place] [address] [place] [address] [phone] (ABNORMAL) *UA reflex to Microscopic and Culture ([facility] ([facility] [place] [facility] (07/17/2020 2:03 PM SURGERY ATTENDANT) [facility] Method Time Signature Color Urine Brown 07/17/2020 [facility] 2:15 PM SURGERY ATTENDANT [facility] Appearance Urine Slightly 07/17/2020 [facility] Cloudy 2:15 PM SURGERY ATTENDANT [facility] Glucose Urine Negative NEG^Negat 07/17/2020 [facility] jaki mg/dL 2:15 PM SURGERY ATTENDANT [facility] Bilirubin Urine Negative NEG^Negat 07/17/2020 [facility] jaki 2:15 PM SURGERY ATTENDANT [facility] Ketones Urine Negative NEG^Negat 07/17/2020 [facility] jaki mg/dL 2:15 PM SURGERY ATTENDANT [facility] [place] Specific [place] >1.030 1.003 - 07/17/2020 [facility] Urine 1.035 2:15 PM SURGERY ATTENDANT [facility] Blood Urine Large (A) NEG^Negat 07/17/2020 [facility] jaki 2:15 PM SURGERY ATTENDANT [facility] pH Urine 5.5 5.0 - 7.0 07/17/2020 [facility] pH 2:15 PM SURGERY ATTEND[facility] Protein Albumin >=300 (A) NEG^Negat 07/17/2020 [facility] Urine jaki mg/dL 2:15 PM SURGERY ATTENDANT [facility] Urobilinogen 0.2 0.2 - 1.0 07/17/2020 [facility] Urine EU/dL 2:15 PM SURGERY ATTENDANT [facility] Nitrite Urine Negative NEG^Negat 07/17/2020 [facility] jaki 2:15 PM SURGERY ATTENDANT [facility] Leukocyte Small (A) NEG^Negat 07/17/2020 [facility] Esterase Urine jaki 2:15 PM SURGERY ATTENDANT [facility] Source Midstream 07/17/2020 [facility] Urine 2:04 PM SURGERY ATTENDANT [facility] Specimen (Source) Anatomical Collection Method Collection Time Re ceived Time Location / / Volume Laterality Examination of 07/17/2020 2:03 07/17/2020 2:04 midstream urine PM SURGERY ATTENDANT PM SURGERY ATTENDANT specimen (procedure) Staci Correa PA-C LAB - URINE ORDERABLES Performing Organization Address City/State/ZIP Code Phon e Number [facility] [place] [address] [place] [phone] documented in this encounter Visit Diagnoses Diagnosis Acute UTI - Primary Urinary tract infection, site not specif ied Dysuria Nonspecific finding on examination of ur ine Other nonspecific finding on examination of urine documented in this encounter Additional Health Concerns Assessment Noted Time PHQ-9 Depression Total Score: 5 03/16/2020 7:09 AM CDT documented as of this encounter Care Teams Mold Puller Relationship Specialty Start Date End Date Noreen Hills PCP - General Nurse Practitioner 01/09/19 12/12/21 SEAN Haley SPRAY CEMENTER [address] [facility] [place] [address] Noreen Hills Assigned PCP 06/16/18 SEAN Haley SPRAY CEMENTER [address] [facility] [place] [address] Kalyan Galvan Personal Advocate & 08/08/19 Liaison (PAL) Lashae Trevino Pharmacist Pharmacist 10/14/19 12/01/20 [facility] [address] [facility] [place] [address] Eduardo Sharma MD Assigned Sleep Provider 04/02/20 05/07/21 [address] [facility] [address] [place] [address] Rios Monteiro MD Assigned Musculoskeletal 04/02/20 08/24/20 [address] [facility] Provider [address] [place] [address] documented as of this encounter
--- OUTSIDE RECORDS SUMMARY | 2022-02-02 09:08 | XMS_ITS | Encounter Summary ---
:1965 Author Organization [facility] Address [address] [place] [address] Care Team Providers Name Role Phone Noreen Hills APRN NECKTIE TURNER Unavailable [phone] Noreen Hills APRN NECKTIE TURNER Primary Care Provider [phone] Kalyan Galvan Unavailable Unavailable Lashae Trevino [facility] Unavailable [phone] Eduardo Sharma MD Unavailable Rios Monteiro MD Unavailable Reason for Visit Reason Comments Other Entered automatically based on patient selection in [facility]. Encounter Details Date Type Department Care Team Description 07/16/2020 E-Visit [facility] Tatiana Marshall NP Other (Entered Clinic [address] automatically based on [address] [place] [address] DR tenorio... [facility] [address] [place] [address] [address] [place] [address] [phone] Social History Tobacco Use Types Packs/Day Years [...] How often do you attend sikh or catholic Patient refused 08/08/2019 services? Do you belong to any clubs or organizations such as No 08/08/2019 sikh groups, [employer], fraBrickell Bay Acquisition or athletic groups, or school groups? How [...] with No / Unsure 07/17/2020 1:32 PM CERTIFIED INCOME TAX PREPARER someone who was confirmed or suspected to have Coronavirus / COVID-19? documented as of this encounter Miscellaneous Notes Telephone Encounter - Lainey Wells - 07/16/2020 11:55 AM CST See message to pt. Lainey Russell on 07/16/2020 at 11:55 AM IFIED INCOME TAX PREPARER Telephone Encounter - Tatiana Marshall NP - 07/16/2020 11:37 AM CST Provider E-Visit time total (minutes): -0 No reply, pt ended up going to for this problem IFIED INCOME TAX PREPARER documented in this encounter Plan of Treatment [...] documented as of this encounter Care Teams Plastic Surgery Nurse Relationship Specialty Start Date End Date Noreen Hills PCP - General Nurse Practitioner 01/09/19 12/12/21 SEAN Haley NECKTIE TURNER [address] [facility] [place] [phone] Noreen Hills Assigned PCP 06/16/18 SEAN Haley NECKTIE TURNER [address] [facility] [place] [address] Kalyan Galvan Personal Advocate & 08/08/19 Liaison (PAL) Lashae Trevino Pharmacist Pharmacist 10/14/19 12/01/20 CLAUDIA Beck [address] [place] [phone] Eduardo Sharma MD Assigned Sleep Provider 04/02/20 05/07/21 [address] [place] [id number] Rios Monteiro MD Assigned Musculoskeletal 04/02/20 08/24/[id number] [place] [address] [id number] documented as of this encounter
--- OUTSIDE RECORDS SUMMARY | 2022-02-02 09:08 | XMS_ITS | Encounter Summary ---
:1965 Author Organization [facility] Address [address] [place] [address] Care Team Providers Name Role Phone Noreen Hills APRN DELIVERY ROOM SUPERVISOR Unavailable [phone] Noreen Hills APRN DELIVERY ROOM SUPERVISOR Primary Care Provider [phone] Kalyan Galvan Unavailable Unavailable Lashae Trevino [facility] Unavailable [phone] Eduardo Sharma MD Unavailable Marcelo Artis PA-C Unavailable [phone] Rodrigo Man PA-C Unavailable [phone] Encounter Details Date Type Department Care Team Description 11/02/2020 Records - [facility] CON[facility] Provider, Histor ical Social History [...] How often do you attend restorationist or scientology Patient refused 08/08/2019 services? Do [...] documented as of this encounter Care Teams High Density Press Operator Relationship Specialty Start Date End Date Noreen Hills PCP - General Nurse Practitioner 01/09/19 12/12/21 SEAN Haley DELIVERY ROOM SUPERVISOR [address] [facility] [place] [phone] Noreen Hills Assigned PCP 06/16/18 SEAN Haley DELIVERY ROOM SUPERVISOR [address] [facility] [place] [address] Kalyan Galvan Personal Advocate & 08/08/19 Liaison (PAL) Lashae Trevino Pharmacist Pharmacist 10/14/19 12/01/20 [facility] [address] [facility] [place] [phone] Eduardo Sharma MD Assigned Sleep Provider 04/02/20 05/07/[address] [place] [id number] Marcelo Artis Assigned Musculoskeletal 08/25/20 08/20/21 MIKAYLA Nuno Provider [address] [facility] [address] [place], [place] 799[address] Rodrigo Man Assigned Surgical 08/25/2011/27 MIKAYLA Lacy Provider [address] [place] [address] documented as of this encounter
--- OUTSIDE RECORDS SUMMARY | 2022-02-02 09:08 | XMS_ITS | Encounter Summary ---
:1965 Author Organization [facility] Address [address] [place] [address] Care Team Providers Name Role Phone Noreen Hills APRN DEMONSTRATOR ELECTRIC GAS APPLIANCES Unavailable [phone] Noreen Hills APRN DEMONSTRATOR ELECTRIC GAS APPLIANCES Primary Care Provider [phone] Kalyan Galvan Unavailable Unavailable Lashae Trevino [facility] Unavailable [phone] Eduardo Sharma MD Unavailable Marcelo Artis PA-C Unavailable [phone] Rodrigo Man PA-C Unavailable [phone] Encounter Details Date Type Department Care Team [...] How often do you attend samaritan or mosque Patient refused 08/08/2019 services? Do [...] documented as of this encounter Care Teams Wood Stock Blank Handler Relationship Specialty Start Date End Date Noreen Hills PCP - General Nurse Practitioner 01/09/19 12/12/21 SEAN Haley DEMONSTRATOR ELECTRIC GAS APPLIANCES [address] [facility] [place] [address] Noreen Hills Assigned PCP 06/16/18 SEAN Haley DEMONSTRATOR ELECTRIC GAS APPLIANCES [address] [facility] [place] [address] Kalyan Galvan Personal Advocate & 08/08/19 Liaison (PAL) Lashae Trevino Pharmacist Pharmacist 10/14/19 12/01/20 [facility] [address] [facility] [place] [phone] Eduardo Sharma MD Assigned Sleep Provider 04/02/20 05/07/21 [address] [place] [id number] Marcelo Artis Assigned Musculoskeletal 08/25/20 08/20/21 MIKAYLA Nuno Provider [address] [facility] [address] [place], [place] 3949[address] Rodrigo Man Assigned Surgical 08/25/2011/27 MIKAYLA Lacy Provider [address] [place] [id number] documented as of this encounter
--- OUTSIDE RECORDS SUMMARY | 2022-02-02 09:08 | XMS_ITS | Encounter Summary ---
:1965 Author Organization [facility] Address [address] [place] [address] Care Team Providers Name Role Phone Noreen Hills APRN, CNP Unavailable [phone] Noreen Hills APRN, CNP Primary Care Provider [phone] Kalyan Galvan Unavailable Unavailable Eduardo Sharma MD Unavailable Marcelo Artis PA-C Unavailable [phone] Reason for Visit Reason Comments Medication Refill Encounter Details Date Type Department Care Team Description 01/11/2021 Refill [facility] Noreen Hills, Medication Refill Pino ESTRADA MILK HANDLER [address] [facility] [address] [place] [address] [address] [place] [address] [place] [address] [phone] Social History Tobacco Use Types Packs/Day Years [...] How often do you attend catholic or religion Patient refused 08/08/2019 services? Do [...] the [facility] refill protocol Radha Manning RN [facility] -- Triage Nurse documented in this encounter Plan of Treatment Not on filedocumented as of this encounter Visit Diagnoses Diagnosis Chronic seasonal allergic rhinitis documented in this encounter Additional Health Concerns Assessment Noted Time PHQ-9 Depression Total Score: 7 11/10/2020 1:31 PM CDT documented as of this encounter Care Teams Dermatology Technician Relationship Specialty Start Date End Date Noreen Hills PCP - General Nurse Practitioner 01/09/19 12/12/21 SEAN Haley MILK HANDLER [address] [facility] [place] [address] Noreen Hills Assigned PCP 06/16/18 SEAN Haley MILK HANDLER [address] [facility] [place] [address] Kalyan Galvan Personal Advocate & 08/08/19 Liaison (PAL) Eduardo Sharma MD Assigned Sleep Provider 04/02/20 05/07/21 [address] [place] [address] Marcelo Artis Assigned Musculoskeletal 08/25/20 08/20/21 MIKAYLA Nuno Provider [address] [address] documented as of this encounter
--- OUTSIDE RECORDS SUMMARY | 2022-02-02 09:08 | XMS_ITS | Encounter Summary ---
:1965 Author Organization [facility] Address [address] [place] [address] Care Team Providers Name Role Phone Noreen Hills APRN BOILER CONTROL ROOM OPERATOR Unavailable [phone] Noreen Hills APRN BOILER CONTROL ROOM OPERATOR Primary Care Provider [phone] Kalyan Galvan Unavailable Unavailable Lashae Trevino [facility] Unavailable [phone] Eduardo Sharma MD Unavailable Rios Monteiro MD Unavailable Marcelo Artis PA-C Unavailable [phone] Rodrigo Man PA-C Unavailable [phone] Reason for Visit Reason Comments Medication Refill Encounter Details Date Type Department Care Team Description 07/10/[address] [facility] Noreen Hills, Medication Refill Pino INDUSTRIAL SWEEPER CLEANER BOILER CONTROL ROOM OPERATOR [address] [facility] [address] [place] [address] [address] [place] [address] [place] [address] [phone] Social History Tobacco Use Types Packs/Day Years [...] How often do you attend mormon or holiness Patient refused 08/08/2019 services? Do [...] Champagne RN on 07/13/2020 at 11:11 AM L BILLING ANALYST Telephone Encounter - Lainey Wells - 07/12/2020 2:22 PM CST The pt called back and she says that she takes anywhere from 8-10 a month. Lainey Wells on 07/12/2020 at 2:25 PM L BILLING ANALYST Telephone Encounter - Lainey Wells - 07/12/2020 10:59 AM CST 1st attempt l/m. Lainey Wells on 07/12/2020 at 10:59 AM L BILLING ANALYST Telephone Encounter - Desirae Champagne RN - 07/12/2020 10:02 AM CST Please call patient and see how many doses of sumatriptan patient has used in the past month. Shouldbe using 8 doses or fewer per month. Desirae Champagne RN on 07/12/2020 at 10:07 AM L BILLING ANALYST documented in this encounter Plan of [...] documented as of this encounter Care Teams Imager Relationship Specialty Start Date End Date Noreen Hills PCP - General Nurse Practitioner 01/09/19 12/12/21 SEAN Haley BOILER CONTROL ROOM OPERATOR [address] [facility] [place] [address] Noreen Hills Assigned PCP 06/16/18 SEAN Haley BOILER CONTROL ROOM OPERATOR [address] [facility] [place] [address] Kalyan Galvan Personal Advocate & 08/08/19 Liaison (PAL) Lashae Trevino Pharmacist Pharmacist 10/14/19 12/01/20 [facility] [address] [facility] [address] [place], [place] [phone] Eduardo Sharma MD Assigned Sleep Provider 04/02/20 05/07/21 [address] [place] [id number] Rios Monteiro MD Assigned Musculoskeletal 04/02/20 08/24/[address] [facility] [address] Provider [address] [place] [address] Marcelo Artis Assigned Musculoskeletal 08/25/20 08/20/21 MIKAYLA Nuno Provider [address] [place] [address] Rodrigo Man Assigned Surgical 08/25/2011/27 MIKAYLA Lacy Provider [address] [place] [address] documented as of this encounter
--- OUTSIDE RECORDS SUMMARY | 2022-02-02 09:08 | XMS_ITS | Encounter Summary ---
:1965 Author Organization [facility] Address [address] [place] [address]. [place] [address] Care Team Providers Name Role Phone Noreen Hills APRN KITCHEN HELP HANDYMAN Unavailable [phone] Noreen Hills APRN KITCHEN HELP HANDYMAN Primary Care Provider [phone] Kalyan Galvan Unavailable Unavailable Lashae Trevino [facility] Unavailable [phone] Eduardo Sharma MD Unavailable Marcelo Artis PA-C Unavailable [phone] Rodrigo Man PA-C Unavailable [phone] Encounter Details Date Type Department Care Team Description 09/24/2020 Immunization [facility] Ruperto Monk, Vaccination Center - [address] [address] [place], [place] [address] [phone] Social History Tobacco Use Types Packs/Day Years [...] How often do you attend sabianist or gnosticism Patient refused 08/08/2019 services? Do you belong to any clubs or organizations such as No 08/08/2019 sabianist groups, [employer], fraSkimlinks or athletic groups, or school groups? How [...] as of this encounter Care Teams Electrical Software Engineer Relationship Specialty Start Date End Date Noreen Hills PCP - General Nurse Practitioner 01/09/19 12/12/21 SEAN Haley KITCHEN HELP HANDYMAN [address] [facility] [place] [phone] Noreen Hills Assigned PCP 06/16/18 SEAN Haley KITCHEN HELP HANDYMAN [address] [facility] [place] [phone] Kalyan Galvan Personal Advocate & 08/08/19 Liaison (PAL) Lashae Trevino Pharmacist Pharmacist 10/14/19 12/01/20 [facility] 1440 [facility] [place] [phone] Eduardo Sharma MD Assigned Sleep Provider 04/02/20 05/07/21 [address] [place] [id number] Marcelo Artis Assigned Musculoskeletal 08/25/20 08/20/21 MIKAYLA Nuno Provider [address] [facility] [address] [place] [address] Rodrigo Man Assigned Surgical 08/25/2011/27 MIKAYLA Lacy Provider [address] [place] [id number] documented as of this encounter
--- OUTSIDE RECORDS SUMMARY | 2022-02-02 09:08 | XMS_ITS | Encounter Summary ---
:1965 Author Organization [place] Address [address] [place] [address] Care Team Providers Name Role Phone Noreen Hills APRN PERSONNEL RESEARCH SCIENTIST Unavailable [phone] Noreen Hills APRN, CNP Primary Care Provider [phone] Kalyan Galvan Unavailable Unavailable Lashae Trevino [facility] Unavailable [phone] Eduardo Sharma MD Unavailable Marcelo Artis PA-C Unavailable [phone] Rodrigo Man PA-C Unavailable [phone] Reason for Visit Reason Onset Date Comments Medication Request 10/20/2020 Encounter Details Date Type Department Care Team Description 10/20/2020 Telephone [facility] Noreen Hills ication Request Pino Haley APRN PERSONNEL RESEARCH SCIENTIST [address] [facility] [address] [place] [address] [place] [phone] Social History Tobacco Use Types Packs/Day Years [...] How often do you attend mormon or advent Patient refused 08/08/2019 services? Do [...] her pharmacy about this. Tatiana Marshall APRN, PERSONNEL RESEARCH SCIENTIST Telephone Encounter - Lainey Wells - 10/20/2020 9:58 AM CDT The pt was calling and she was given some samples of OneTouch Verio Test Strips and Lancets and she would like an rx sent to the [facility] in [place]. Thank you. Lainey Russell on 10/20/2020 at 10:07 AM documented in this encounter Plan of Treatment Not on filedocumented as of this encounter Visit Diagnoses Not on filedocumented in this encounter Additional Health Concerns Assessment Noted Time PHQ-9 Depression Total Score: 5 03/16/2020 7:09 AM CDT documented as of this encounter Care Teams Video Player Mechanic Relationship Specialty Start Date End Date Noreen Hills PCP - General Nurse Practitioner 01/09/19 12/12/21 SEAN Haley PERSONNEL RESEARCH SCIENTIST [address] [facility] [place] [address] Noreen Hills Assigned PCP 06/16/18 SEAN Haley PERSONNEL RESEARCH SCIENTIST [address] [facility] [place] [address] Kalyan Galvan Personal Advocate & 08/08/19 Liaison (PAL) Lashae Trevino Pharmacist Pharmacist 10/14/19 [facility]01/[facility] 1440 [facility] [place] [address] Eduardo Sharma MD Assigned Sleep Provider 04/02/20 05/07/21 [address] [place] [id number] Marcelo Artis Assigned Musculoskeletal 08/25/20 08/20/21 MIKAYLA Nuno Provider [address] [facility] [address] [place] [address] Rodrigo Man Assigned Surgical 08/25/2011/27 MIKAYLA Lacy Provider [address] [place] [id number] documented as of this encounter
--- OUTSIDE RECORDS SUMMARY | 2022-02-02 09:08 | XMS_ITS | Encounter Summary ---
:1965 Author Organization [place] Address [address] [place] [address] Care Team Providers Name Role Phone Noreen Hills APRN, CNP Unavailable [phone] Noreen Hills APRN, CNP Primary Care Provider [phone] Kalyan Galvan Unavailable Unavailable Lashae Trevino [facility] Unavailable [phone] Eduardo Sharma MD Unavailable Marcelo Artis PA-C Unavailable [phone] Rodrigo Man PA-C Unavailable Reason for Visit Reason Onset Date Comments Refill Request 09/24/2020 zolpidem (AMBIEN) 5 MG tablet Encounter Details Date Type Department Care Team Description 09/24/2020 Refill [facility] Noreen Hills Refill Req uest (zolpidem Clinic Pino Haley APRN CNP (AMBIEN) 5 MG tablet) [address] [place] [address] [facility] [address] [place] [address] [place] [address] [phone] Social History Tobacco Use Types Packs/Day Years [...] How often do you attend scientologist or spiritism Patient refused 08/08/2019 services? Do you belong to any clubs or organizations such as No 08/08/2019 scientologist groups, unions, fraSocialSci or athletic groups, or school groups? How [...] documented as of this encounter Care Teams Missionary Coordinator Relationship Specialty Start Date End Date Noreen Hills PCP - General Nurse Practitioner 01/09/19 12/12/21 SEAN Haley PIG FURNACE OPERATOR [address] [facility] [place] [id number] Noreen Hills Assigned PCP 06/16/18 SEAN Haley PIG FURNACE OPERATOR [address] [facility] [place] [phone] Kalyan Galvan Personal Advocate & 08/08/19 Liaison (PAL) Lashae Trevino Pharmacist Pharmacist 10/14/19 12/01/20 [facility] 1440 [facility] [place] [id number] Eduardo Sharma MD Assigned Sleep Provider 04/02/20 05/07/21 [address] [place] [id number] Marcelo Artis Assigned Musculoskeletal 08/25/20 08/20/21 MIKAYLA Nuno Provider [address] [facility] [address] [place], [place] [address] Rodrigo Man Assigned Surgical 08/25/2011/27 MIKAYLA Lacy Provider [address] [place] [id number] documented as of this encounter
--- OUTSIDE RECORDS SUMMARY | 2022-02-02 09:08 | XMS_ITS | Encounter Summary ---
:1965 Author Organization [place] Address [address] [place] [address] Care Team Providers Name Role Phone Noreen Hills APRN, CNP Unavailable [phone] Noreen Hills APRN, CNP Primary Care Provider [phone] Kalyan Galvan Unavailable Unavailable Lashae Trevino [facility] Unavailable [phone] Eduardo Sharma MD Unavailable Marcelo Artis PA-C Unavailable [phone] Rodrigo Man PA-C Unavailable Reason for Visit Reason Onset Date Comments Refill Request 10/05/2020 topiramate (TOPAMAX) 100 MG tablet Encounter Details Date Type Department Care Team Description 10/05/2020 Refill [facility] Noreen Hills Refill Req uest Clinic Pino Haley APRN CNP (topiramate (TOPAMAX) [address] [place] [address]305 [facility] 100 M G tablet) [facility] [address] [place] [address] [place] [address] [phone] Social History Tobacco Use Types Packs/Day Years [...] How often do you attend druze or lutheran Patient refused 08/08/2019 services? Do you belong to any clubs or organizations such as No 08/08/2019 druze groups, Quiblys, fraeziCONEX or athletic groups, or school groups? How [...] General Nurse Practitioner 01/09/19 12/12/21 SEAN Haley COMMERCIAL HOUSEKEEPER [address] [facility] [place] [phone] Noreen Hills Assigned PCP 06/16/18 SEAN Haley COMMERCIAL HOUSEKEEPER [address] [facility] [place] [address] Kalyan Galvan Personal Advocate & 08/08/19 Liaison (PAL) Lashae Trevino Pharmacist Pharmacist 10/14/19 12/01/20 Kiran, [facility] 1440 [facility] [place] [phone] Eduardo Sharma MD Assigned Sleep Provider 04/02/20 05/07/21 [address] [place] [address] Marcelo Artis Assigned Musculoskeletal 08/25/20 08/20/21 MIKAYLA Nuno Provider [address] [facility] 300 [place] [address] Rodrigo Man Assigned Surgical 08/25/2011/27 MIKAYLA Lacy Provider [address] [facility] 450 [place], [place] [address] documented as of this encounter
--- OUTSIDE RECORDS SUMMARY | 2022-02-02 09:08 | XMS_ITS | Encounter Summary ---
:1965 Author Organization [place] Address [address] [place] [address]. [place] [address] Care Team Providers Name Role Phone Noreen Hills APRN PURCHASE REQUEST EDITOR Unavailable [phone] Noreen Hills APRN PURCHASE REQUEST EDITOR Primary Care Provider [phone] Kalyan Galvan Unavailable Unavailable L[facility]ae Trevino [facility] Unavailable [phone] Eduardo Sharma MD Unavailable Marcelo Artis PA-C Unavailable [phone] Rodrigo Man PA-C Unavailable [phone] Encounter Details Date Type Department Care Team Description 09/03/2020 [facility] [address] [place], [place] [phone] Social History Tobacco Use [...] How often do you attend judaism or pentecostal Patient refused 08/08/2019 services? Do [...] documented as of this encounter Care Teams Voice Over Announcer Relationship Specialty Start Date End Date Noreen Hills PCP - General Nurse Practitioner 01/09/19 12/12/21 SEAN Haley PURCHASE REQUEST EDITOR [address] [facility] [place] [address] Noreen Hills Assigned PCP 06/16/18 SEAN Haley PURCHASE REQUEST EDITOR 3305 [facility] [place] [address] Kalyan Galvan Personal Advocate & 08/08/19 Liaison (PAL) Lashae Trevino Pharmacist Pharmacist 10/14/19 12/01/20 [facility] [address] [facility] [address] [place], [place] [id number] Eduardo Sharma MD Assigned Sleep Provider 04/02/20 05/07/21 [address] [place] [id number] Marcelo Artis Assigned Musculoskeletal 08/25/20 08/20/21 MIKAYLA Nuno Provider [address] [facility] 300 [place], [place] [address] Rodrigo Man Assigned Surgical 08/25/2011/27 MIKAYLA Lacy Provider [address] [place] [address] documented as of this encounter
--- OUTSIDE RECORDS SUMMARY | 2022-02-02 09:08 | XMS_ITS | Encounter Summary ---
:1965 Author Organization [place] Address [address] [place] [address] Care Team Providers Name Role Phone Noreen Hills APRN, CNP Unavailable [phone] Noreen Hills APRN, CNP Primary Care Provider [phone] Kalyan Galvan Unavailable Unavailable Eduardo Sharma MD Unavailable Marcelo Artis PA-C Unavailable [phone] Reason for Visit Reason Onset Date Comments Panel Management 12/02/2020 Encounter Details Date Type Department Care Team Description 12/02/2020 Documentation Only [facility] Lashae Trevino [facility] [address] [place] [address] [address] [place] [address] (Work) [phone] Social History Tobacco Use Types Packs/Day Years [...] How often do you attend gnosticist or lutheran Patient refused 08/08/2019 services? Do [...] of this encounter Progress Notes Lashae Trevino [facility] - 12/02/2020 3:44 PM CDT Have not been able to connect with patient. No further attempts will be made at this time. I would be happy to assist in the care of this patient in the future if needed. Lashae Trevino, PharmD Medication Therapy Management Pharmacist Electronically signed by Lashae Trevino [facility] at 12/02/2020 3:44 PM CDT documented in this encounter Plan of Treatment Not on filedocumented as of this encounter Visit Diagnoses Not on filedocumented in this encounter Additional Health Concerns Assessment Noted Time PHQ-9 Depression Total Score: 7 11/10/2020 1:31 PM CDT documented as of this encounter Care Teams Farmworker Grain Relationship Specialty Start Date End Date Noreen Hills PCP - General Nurse Practitioner 01/09/19 12/12/21 SEAN Haley FOREPART ROUNDER [address]305 [facility] [place] [address] Noreen Hills Assigned PCP 06/16/18 SEAN Haley FOREPART ROUNDER 3305 [facility] [place] [address] Kalyan Galvan Personal Advocate & 08/08/19 Liaison (PAL) Eduardo Sharma MD Assigned Sleep Provider 04/02/20 05/07/21 [address] [place], [place] [address] Marcelo Artis Assigned Musculoskeletal 08/25/20 08/20/21 MIKAYLA Nuno Provider [address] [facility] [address] [place] [address] documented as of this encounter
--- OUTSIDE RECORDS SUMMARY | 2022-02-02 09:08 | XMS_ITS | Encounter Summary ---
:1965 Author Organization [place] Address [address] [place] [address] Care Team Providers Name Role Phone Noreen Hills APRN BASKET MACHINE OPERATOR Unavailable [phone] Noreen Hills APRN, CNP Primary Care Provider [phone] Kalyan Galvan Unavailable Unavailable Lashae Trevino [facility] Unavailable [phone] Eduardo Sharma MD Unavailable Marcelo Artis PA-C Unavailable [phone] Rodrigo Man PA-C Unavailable [phone] Encounter Details Date Type Department Care Team Description 11/16/2020 Telephone [facility] Noreen Hills [place] APRN BASKET MACHINE OPERATOR [address] [facility] [address] [place] [address] [address] [place] [address] [place] [address] [phone] Social History Tobacco Use Types Packs/Day Years [...] often do you attend oriental orthodox or sabianism Patient refused 08/08/2019 services? Do you belong to any clubs or organizations such as No 08/08/2019 oriental orthodox groups, [employer], [employer]D Systems or athletic groups, or school groups? [...] V - 11/16/2020 1:31 PM CDT This typewriter repairer [facility] [place]. Both locations have availability end of Decemberfor virtual visit (in-person at [place] location). Called and spoke with patient. Informed patient Rx has been sent to her local pharmacy. Discussed appointment scheduling with patient who is willing to do virtual visit. Patient is rescheduled for video visit on 01/03/2021 at 12:30 pm with same provider (Dr. Painting). Patient also added to wait list for sooner appointment. Provider updated. Barbara Mcd[place] Judge Telephone Encounter - Kavin Fitzgerald PA-C - 11/16/2020 1:15 PM CDT I sent her an rx for anti-inflammatory. It takes a few days to take effect. Can we try to get her into Rheum sooner? Her current appointment is Feb. Can we try [facility] in [place]? Kavin Fitzgerald PA-C Telephone Encounter - Sheeba Oscar RN - 11/16/2020 12:57 PM CDT Called pt. She says she has taken everything OTC and it does not touch it. She was going to send [employer] message last night but could not find [...] documented as of this encounter Care Teams Autographer Relationship Specialty Start Date End Date Noreen Hills PCP - General Nurse Practitioner 01/09/19 12/12/21 SEAN Haley BASKET MACHINE OPERATOR [address] [facility] [place] [address] Noreen Hills Assigned PCP 06/16/18 SEAN Haley BASKET MACHINE OPERATOR [address] [facility] [place] [address] Kalyan Galvan Personal Advocate & 08/08/19 Liaison (PAL) Lashae Trevino Pharmacist Pharmacist 10/14/19 12/01/[facility] [address] [facility] [place] [phone] Eduardo Sharma MD Assigned Sleep Provider 04/02/20 05/07/21 [address] [place] [address] Marcelo Artis Assigned Musculoskeletal 08/25/20 08/20/21 MIKAYLA Nuno Provider [address] [facility] [address] [place], [place] [address] Rodrigo Man Assigned Surgical 08/25/2011/27 MIKAYLA Lacy Provider [address] [place], [place] [address] documented as of this encounter
--- OUTSIDE RECORDS SUMMARY | 2022-02-02 09:08 | XMS_ITS | Encounter Summary ---
:1965 Author Organization [place] Address [address] [place] [address] Care Team Providers Name Role Phone Noreen Hills APRN SPECIAL EDUCATION MATH TEACHER Unavailable [phone] Noreen Hills APRN SPECIAL EDUCATION MATH TEACHER Primary Care Provider [phone] Kalyan Galvan Unavailable Unavailable Lashae Trevino [facility] Unavailable [phone] Eduardo Sharma MD Unavailable Marcelo Artis PA-C Unavailable [phone] Rodrigo Man PA-C Unavailable [phone] Reason for Referral Consultation (Routine) - Closed Specialty Diagnoses / Procedures Referred By Contact Refer red To Contact Rheumatology Diagnoses Polyarthralgia Kavin Fitzgerald [facility] and [address] [place] [id number] [place] [address] Phone: Fax: Referral ID Status Reason Start Date Expiration Date Visits Requ ested Visits Authorized [id number] Closed 11/12/2020 11/12/2021 1 1 Reason for Visit Reason Comments Musculoskeletal Problem bilat legs and hands Encounter Details Date Type Department Care Team Description 11/10/2020 Office Visit [facility] Lizzie Fitzgerald saul[place]lie (Primary Clinic [place]ino Fernandez, [place]) [address] [facility] [address] [facility] [place] [address] [place] [address] [phone] Social History Tobacco Use Types Packs/Day Years [...] How often do you attend islam or religion Patient refused 08/08/2019 services? Do [...] - Rheumatology Referral; Future Kavin Fitzgerald PA-C [facility] Guzman is a 55 year old [...] s/p cervical fusion. Migraines consistent--topamax. 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 FH: mother and daughter [...] Name Type Priority Associated Diagnoses Order S [facility] Rheumatology Referral Referral Routine Polyarthralgia [...] [facility] OF tive 2:05 PM CDT [facility] Comment: ? Reference range: <1:40 ??NEGATIVE 1:40 - 1:80 ??BORDERLINE POSITIVE >1:80 POSITIVE FAL[place]UNI pattern 1 DENSE FINE SPECKLED 11/11/2020 2:[address] [facility] FALGUNI titer 1 1:160 11/11/2020 2:[address] [facility] Specimen Anatomical Collection Method Collection Time Receive d Time (Source) Location / / Volume Laterality Blood 11/10/2020 2:29 PM 1 3:04 CDT PM CDT Kavin Fitzgerald PA-C LAB - BLOOD ORDERABLES Performing Organization Address City/State/ZIP Code Phon e Number [facility] [address] [place], [place] [phone] [place] [address] (ABNORMAL) Erythrocyte sedimentation rate auto (11/10/2020 2:29 PM CDT) P athologist Signature Sed Rate 40 (H) 0 - 30 mm/h 11/10/2020 [facility] 3:21 PM CDT [facility] Specimen Anatomical Collection Method Collection Time Receive d Time (Source) Location / / Volume Laterality Blood 11/10/2020 2:29 PM 1 3:04 CDT PM CDT Kavin Fitzgerald PA-C LAB - BLOOD ORDERABLES Performing Organization Address City/State/ZIP Code Phon e Number [address] [address] [phone] Rheumatoid factor (11/10/2020 2:29 PM CDT) P athologist Signature Rheumatoid <7 <12 IU/mL 11/11/2020 [facility] Factor 11:52 AM CDT [facility] Specimen Anatomical Collection Method Collection Time Receive d Time (Source) Location / / Volume Laterality Blood 11/10/2020 2:29 PM 1 3:04 CDT PM CDT Kavin Fitzgerald PA-C LAB - BLOOD ORDERABLES Performing Organization Address City/[facility]/ZIP Code Phon e Number [facility] [address] [place] [address] [facility] Cyclic Citrullinated Peptide Antibody IgG (11/10/2020 2:29 PM CDT) Patholo gist Method Time Signature Cyclic 2 <7 U/mL 11/11/2020 [facility] 2:03 PM CDT [facility] Peptide Antibody, [facility] Comment: Negative Specimen Anatomical Collection Method Collection Time Receive d Time (Source) Location / / Volume Laterality Blood 11/10/2020 2:29 PM 1 3:04 CDT PM CDT Kavin Fitzgerald PA-C LAB - BLOOD ORDERABLES Performing Organization Address City/[facility]/ZIP Code Phon e Number [facility] [address] [place] [phone] [facility] CRP inflammation (11/10/2020 2:29 PM CDT) Analysis Performed At Patho logist Time Signature CRP Inflammation <2.9 0.0 - 8.0 11/10/2020 [facility] F mg/L 8:40 PM CDT [facility] Specimen Anatomical Collection Method Collection Time Receive d Time (Source) Location / / Volume Laterality Blood 11/10/2020 2:29 PM 1 3:04 CDT PM CDT Kavin Fitzgerald PA-C LAB - BLOOD ORDERABLES Performing Organization Address City/State/ZIP Code Phon e Number [facility] [address] [place] [address] [facility] CBC with platelets differential (11/10/2020 2:29 PM CDT) [facility] Method Time Signature WBC 5.5 4.0 [...] [facility] Absolute 0.5 0.0 - 1.3 11/10/2020 [facility] Monocytes 10e9/L 3:14 PM CDT [facility] Absolute 0.2 0.0 - 0.7 11/10/2020 [facility] Eosinophils 10e9/L 3:14 PM CDT [facility] Absolute 0.1 0.0 - 0.2 11/10/2020 [facility] Basophils 10e9/L 3:14 PM CDT [facility] Diff Method Automated 11/10/2020 [facility] Method 3:14 PM CDT [facility] Specimen Anatomical Collection Method Collection Time Receive d Time (Source) Location / / Volume Laterality Blood 11/10/2020 2:29 PM 3:04 CDT PM CDT Kavin Fitzgerald PA-C LAB - BLOOD ORDERABLES Performing Organization Address City/State/ZIP Code Phon e Number [facility] [address] [place] [address] [phone] (ABNORMAL) Comprehensive metabolic panel (11/10/2020 2:29 PM CDT) Analysis Performed At Patho logist Time Signature Sodium 142 133 - 144 11/10/2020 [facility] mmol/L 7:51 PM CDT [facility] Potassium 4.0 3.4 - 5.3 11/10/2020 [facility] mmol/L 7:51 PM CDT [facility] Chloride 112 (H) 94 - 109 11/10/2020 [facility] mmol/L 7:51 PM CDT [facility] Carbon Dioxide 27 20 - 32 11/10/2020 [facility] mmol/L 7:58 PM CDT [facility] Anion Gap 4 3 - 14 11/10/2020 [facility] mmol/L 7:58 PM CDT [facility] Glucose 96 70 - 99 11/10/2020 [facility] mg/dL 7:58 PM CDT [facility] Urea Nitrogen 14 7 - 30 11/10/2020 [facility] mg/dL 7:58 PM CDT [facility] Creatinine 0.74 0.52 - 11/10/2020 [facility] 1.04 mg/dL 7:58 PM CDT [facility] GFR Estimate >90 >60 11/10/2020 [facility] mL/min/{1. 7:58 PM [facility] 73_m2} [facility] Comment: Non GFR Calc Starting 05/28/2018, serum creatinine ba sed estimated GFR (eGFR) will be calculated using the Chronic Kidney Dise [facility] Epidemiology Collaboration (CKD-EPI) equation. GFR Estimate If >90 >60 mL/min/{1.73_m2} 11/10/2020 7: 58 PM [facility] Black [facility] Comment: GFR Calc Starting 05/28/2018, serum creatinine ba sed estimated GFR (eGFR) will be calculated using the Chronic Kidney Dise [facility] Epidemiology Collaboration (CKD-EPI) equation. Calcium 9.3 8.5 - 10.1 mg/dL 11/10/2020 7:58 PM [facility] Bilirubin Total 0.6 0.2 - 1.3 mg/dL 11/10/2020 8:01 PM [facility] Albumin 3.6 3.4 - 5.0 g/dL 11/10/2020 8:01 PM [facility] Protein Total 7.2 6.8 - 8.8 g/dL 11/10/2020 8:01 PM [facility] Alkaline Phosphatase 143 40 - 150 U/L 11/10/2020 8:01 PM [facility] ALT 23 0 - 50 U/L 11/10/2020 8:01 PM [facility] AST 16 0 - 45 U/L 11/10/2020 8:01 PM [facility] Specimen Anatomical Collection Method Collection Time Receive d Time (Source) Location / / Volume Laterality Blood 11/10/2020 2:29 PM 3:04 CDT PM CDT Kavin Fitzgerald PA-C LAB - BLOOD ORDERABLES Performing Organization Address City/State/ZIP Code Phon e Number [facility] [address] [place] [address] [facility] documented in this encounter Visit Diagnoses Diagnosis Polyarthralgia - Primary Pain in joint, multiple sites documented in this encounter Additional Health Concerns Assessment Noted Time PHQ-9 Depression Total Score: 7 11/10/2020 1:31 PM CDT documented as of this encounter Care Teams Math Teacher Relationship Specialty Start Date End Date Noreen Hills PCP - General Nurse Practitioner 01/09/19 12/12/21 SEAN Haley SPECIAL EDUCATION MATH TEACHER [address] [facility] [place] [address] Noreen Hills Assigned PCP 06/16/18 SEAN Haley SPECIAL EDUCATION MATH TEACHER [address] [facility] [place] [address] Kalyan Galvan Personal Advocate & 08/08/19 Liaison (PAL) Lashae Trevino Pharmacist Pharmacist 10/14/19 12/01/20 [facility] [address] [facility] [place], [place] [id number] Eduardo Sharma MD Assigned Sleep Provider 04/02/20 05/07/[address] [place] [address] Marcelo Artis Assigned Musculoskeletal 08/25/20 08/20/21 MIKAYLA Nuno Provider [address] [facility] [address] [place], [place] [address] Rodrigo Man Assigned Surgical 08/25/2011/27 MIAKYLA Lacy Provider [address] [place] [address] documented as of this encounter
--- OUTSIDE RECORDS SUMMARY | 2022-02-02 09:08 | XMS_ITS | Encounter Summary ---
:1965 Author Organization [place] Address [address] [place] [address] Care Team Providers Name Role Phone Noreen Hills APRN, CNP Unavailable [phone] Noreen Hills APRN, CNP Primary Care Provider [phone] Kalyan Galvan Unavailable Unavailable Eduardo Sharma MD Unavailable Marcelo Artis PA-C Unavailable [phone] Encounter Details Date Type Department Care [...] How often do you attend spiritism or caodaism Patient refused 08/08/2019 services? Do [...] documented as of this encounter Care Teams Hang Gliding Instructor Relationship Specialty Start Date End Date Noreen Hills PCP - General Nurse Practitioner 01/09/19 12/12/21 SEAN Haley MANAGER LOCATION [address] [facility] [place] [address] Noreen Hills Assigned PCP 06/16/18 SEAN Haley MANAGER LOCATION [address] [facility] [place] [phone] Kalyan Galvan Personal Advocate & 08/08/19 Liaison (PAL) Eduardo Sharma MD Assigned Sleep Provider 04/02/20 05/07/21 [address] [facility] [address] [place] [address] Marcelo Artis Assigned Musculoskeletal 08/25/20 08/20/21 MIKAYLA Nuno Provider [address] [facility] [address] [place] [address] documented as of this encounter
--- OUTSIDE RECORDS SUMMARY | 2022-02-02 09:08 | XMS_ITS | Encounter Summary ---
:1965 Author Organization [facility] Address [address] [place] [address] Care Team Providers Name Role Phone Noreen Hills APRN DIRECTOR POST Unavailable [phone] Noreen Hills APRN, CNP Primary Care Provider [phone] Kalyan Galvan Unavailable Unavailable Lashae Trevino [facility] Unavailable [phone] Eduardo Sharma MD Unavailable Marcelo Artis PA-C Unavailable [phone] Rodrigo Man PA-C Unavailable [phone] Encounter Details Date Type Department Care Team Description 11/12/2020 Telephone [facility] Noreen Hills Eagan APRN DIRECTOR POST [address] [facility] [address] [place] [address] [address] [place] [address] [place] [address] [phone] Social History Tobacco Use Types Packs/Day Years [...] How often do you attend episcopalian or holiness Patient refused 08/08/2019 services? Do you belong to any clubs or organizations such as No 08/08/2019 episcopalian groups, Youcruits, fraOffline Media or athletic groups, or school groups? How [...] Faria, RN - Patient Advocate Liason (PAL) [facility] Telephone Encounter - Angel Faria RN - [...] documented as of this encounter Care Teams Door Liner Helper Relationship Specialty Start Date End Date Noreen Hills PCP - General Nurse Practitioner 01/09/19 12/12/21 SEAN Haley DIRECTOR POST [address] [facility] [place] [address] Noreen Hills Assigned PCP 06/16/18 SEAN Haley DIRECTOR POST [address] [facility] [place] [address] Kalyan Galvan Personal Advocate & 08/08/19 Liaison (PAL) Lashae Trevino Pharmacist Pharmacist 10/14/19 12/01/20 [facility] [place] [id number] Eduardo Sharma MD Assigned Sleep Provider 04/02/20 05/07/21 [address] [place] [address] Marcelo Artis Assigned Musculoskeletal 08/25/20 08/20/21 MIKAYLA Nuno Provider [address] [facility] [address] [place] [address] Rodrigo Man Assigned Surgical 08/25/2011/27 MIKAYLA Lacy Provider [address] [place] [address] documented as of this encounter
--- OUTSIDE RECORDS SUMMARY | 2022-02-02 09:08 | XMS_ITS | Encounter Summary ---
:1965 Author Organization [facility] Address [address] [place] [address] Care Team Providers Name Role Phone Noreen Hills APRN, CNP Unavailable [phone] Noreen Hills APRN, CNP Primary Care Provider [phone] Kalyan Galvan Unavailable Unavailable Eduardo Sharma MD Unavailable Marcelo Artis PA-C Unavailable [phone] Reason for Visit Reason Comments Medication Refill Encounter Details Date Type Department Care Team Description 01/18/2021 Refill [facility] Noreen Hills, Medication Refill Pino ESTRADA MANAGEMENT EXPERT [address] [facility] [address] [place] [address] [address] [place] [address] [place] [address] [phone] Social History Tobacco Use Types Packs/Day Years [...] How often do you attend christianity or sikh Patient refused 08/08/2019 services? Do [...] 01/20/2021 3:04 PM CDT Prescription approved per [facility] Refill Protocol. Randall Butt RN documented in this encounter Plan of Treatment Not on filedocumented as of this encounter Visit Diagnoses Diagnosis Fibromyalgia Mylagia and myositis, unspecified documented in this encounter Additional Health Concerns Assessment Noted Time PHQ-9 Depression Total Score: 7 11/10/2020 1:31 PM CDT documented as of this encounter Care Teams Material Processor Relationship Specialty Start Date End Date Noreen Hills PCP - General Nurse Practitioner 01/09/19 12/12/21 SEAN Haley MANAGEMENT EXPERT [address] [facility] [place] [address] Noreen Hills Assigned PCP 06/16/18 SEAN Haley MANAGEMENT EXPERT [address] [facility] [place] [address] Kalyan Galvan Personal Advocate & 08/08/19 Liaison (PAL) Eduardo Sharma MD Assigned Sleep Provider 04/02/20 05/07/21 [address] [facility] [address] [place], [place] [address] Marcelo Artis Assigned Musculoskeletal 08/25/20 08/20/21 MIKAYLA Nuno Provider [address] [facility] [address] [place], [place] [address] documented as of this encounter
--- OUTSIDE RECORDS SUMMARY | 2022-02-02 09:08 | XMS_ITS | Encounter Summary ---
:1965 Author Organization [place] Address [address] [place] [address] Care Team Providers Name Role Phone Noreen Hills APRN, CNP Unavailable [phone] Noreen Hills APRN, CNP Primary Care Provider [phone] Kalyan Galvan Unavailable Unavailable Eduardo Sharma MD Unavailable Marcelo Artis PA-C Unavailable [phone] Reason for Visit Reason Comments Medication Refill Encounter Details Date Type Department Care Team Description 12/20/2020 Refill [facility] Noreen Hills, Medication Refill Pino ESTRADA SUPERVISOR POLICY CHANGE CLERKS [address] [facility] [address] [place] [address] [address] [place] [address] [place] [address] [phone] Social History Tobacco Use Types Packs/Day Years [...] How often do you attend religion or catholic Patient refused 08/08/2019 services? Do [...] 12/22/2020 10:44 AM CDT Prescription approved per [facility] Refill Protocol. Wilda Aponte RN, BSN Message handled by CLINIC NURSE. documented in this encounter Plan of Treatment Not on filedocumented as of this encounter Visit Diagnoses Diagnosis Gastroesophageal reflux disease without esophagitis Esophageal reflux documented in this encounter Additional Health Concerns Assessment Noted Time PHQ-9 Depression Total Score: 7 11/10/2020 1:31 PM CDT documented as of this encounter Care Teams Sharepoint Application Developer Relationship Specialty Start Date End Date Noreen Hills PCP - General Nurse Practitioner 01/09/19 12/12/21 SEAN Haley SUPERVISOR POLICY CHANGE CLERKS [address] [facility] [place] [address] Noreen Hills Assigned PCP 06/16/18 SAEN Haley SUPERVISOR POLICY CHANGE CLERKS [address] [facility] [place] [address] Kalyan Galvan Personal Advocate & 08/08/19 Liaison (PAL) Eduardo Sharma MD Assigned Sleep Provider 04/02/20 05/07/21 [address] [facility] [address] [place] [address] Marcelo Artis Assigned Musculoskeletal 08/25/20 08/20/21 MIKAYLA Nuno Provider [address] [facility] [address] [place] [address] documented as of this encounter
--- OUTSIDE RECORDS SUMMARY | 2022-02-02 09:08 | XMS_ITS | Encounter Summary ---
:1965 Author Organization [place] Address [address] [place] [address] Care Team Providers Name Role Phone Noreen Hills APRN LOST AND FOUND CLERK Unavailable [phone] Noreen Hills APRN LOST AND FOUND CLERK Primary Care Provider [phone] Kalyan Galvan Unavailable Unavailable Lashae Trevino [facility] Unavailable [phone] Eduardo Sharma MD Unavailable Marcelo Artis PA-C Unavailable [phone] Rodrigo Man PA-C Unavailable [phone] Encounter Details Date Type Department Care Team [...] documented as of this encounter Care Teams Lockstitch Collar Setter Relationship Specialty Start Date End Date Noreen Hills PCP - General Nurse Practitioner 01/09/19 12/12/21 SEAN Haley LOST AND FOUND CLERK [address] [facility] [place] [address] Noreen Hills Assigned PCP 06/16/18 SEAN Haley LOST AND FOUND CLERK [address] [facility] [place] [address] Kalyan Galvan Personal Advocate & 08/08/19 Liaison (PAL) Lashae Trevino Pharmacist Pharmacist 10/14/19 12/01/20 [facility] [address] [facility] [facility] [address] [place], [place] [phone] Eduardo Sharma MD Assigned Sleep Provider 04/02/20 05/07/[address] [place] [place] [id number] Marcelo Artis Assigned Musculoskeletal 08/25/20 08/20/21 MIKAYLA Nuno Provider [address] [facility] [address] [place], [place] [address] Rodrigo Man Assigned Surgical 08/25/2011/27 MIKAYLA Lacy Provider [address] [place] [address] documented as of this encounter
--- OUTSIDE RECORDS SUMMARY | 2022-02-02 09:08 | XMS_ITS | Encounter Summary ---
:1965 Author Organization [place] Address [address] [place] [address] Care Team Providers Name Role Phone Noreen Hills APRN OBJECT ORIENTED PROGRAMMER Unavailable [phone] Noreen Hills APRN OBJECT ORIENTED PROGRAMMER Primary Care Provider [phone] Kalyan Galvan Unavailable Unavailable Lashae Trevino [facility] Unavailable [phone] Eduardo Sharma MD Unavailable Marcelo Artis PA-C Unavailable [phone] Rodrigo Man PA-C Unavailable [phone] Encounter Details Date Type Department Care Team [...] How often do you attend worship or christian Patient refused 08/08/2019 services? Do [...] documented as of this encounter Care Teams Tour Operator Relationship Specialty Start Date End Date Noreen Hills PCP - General Nurse Practitioner 01/09/19 12/12/21 SEAN Haley OBJECT ORIENTED PROGRAMMER [address] [facility] [place] [address] Noreen Hills Assigned PCP 06/16/18 SEAN Haley OBJECT ORIENTED PROGRAMMER [address] [facility] [place] [address] Kalyan Galvan Personal Advocate & 08/08/19 Liaison (PAL) Lashae Trevino Pharmacist Pharmacist 10/14/19 12/01/20 [facility] [address] [facility] [address] [place], [place] [phone] Eduardo Sharma MD Assigned Sleep Provider 04/02/20 05/07/21 [address] [place] [address] Marcelo Artis Assigned Musculoskeletal 08/25/20 08/20/21 MIKAYLA Nuno Provider [address] [facility] [address] [place], [place] [address] Rodrigo Man Assigned Surgical 08/25/2011/27 MIKAYLA Lacy Provider [address] [place] [address] documented as of this encounter
--- OUTSIDE RECORDS SUMMARY | 2022-02-02 09:08 | XMS_ITS | Encounter Summary ---
:1965 Author Organization [place] Address [address] [place] [address] Care Team Providers Name Role Phone Noreen Hills APRN PUBLIC INFORMATION DIRECTOR Unavailable [phone] Noreen Hills APRN PUBLIC INFORMATION DIRECTOR Primary Care Provider [phone] Kalyan Galvan Unavailable Unavailable Lashae Trevino [facility] Unavailable [phone] Eduardo Sharma MD Unavailable Rios Monteiro [...] How often do you attend latter-day or faith Patient refused 08/08/2019 services? Do [...] with No / Unsure 07/17/2020 1:32 PM MANAGER LEADERSHIP DEVELOPMENT someone who was confirmed or suspected to have Coronavirus / COVID-19? documented as of this encounter Plan of Treatment Not on filedocumented as of this encounter Visit Diagnoses Not on filedocumented in this encounter Additional Health Concerns Assessment Noted Time PHQ-9 Depression Total Score: 5 03/16/2020 7:09 AM CDT documented as of this encounter Care Teams Wastewater Manager Relationship Specialty Start Date End Date Noreen Hills PCP - General Nurse Practitioner 01/09/19 12/12/21 SEAN Haley PUBLIC INFORMATION DIRECTOR [address] [place] [address] Noreen Hills Assigned PCP 06/16/18 SEAN Haley PUBLIC INFORMATION DIRECTOR [address] [place] [address] Kalyan Galvan Personal Advocate & 08/08/19 Liaison (PAL) Lashae Trevino Pharmacist Pharmacist 10/14/19 12/01/[address] [facility] [address] [facility] [address] [place], [place] [phone] Eduardo Sharma MD Assigned Sleep Provider 04/02/20 05/07/21 [address] [facility] [address] [place] [address] Rios Monteiro MD Assigned Musculoskeletal 04/02/20 08/24/20 [address] [facility] Provider [address] [place], [place] [address] documented as of this encounter
--- OUTSIDE RECORDS SUMMARY | 2022-02-02 09:08 | XMS_ITS | Encounter Summary ---
:1965 Author Organization [facility] Address [address] [place] [address] Care Team Providers Name Role Phone Noreen Hills APRN AIRPLANE PILOT PHOTOGRAMMETRY Unavailable [phone] Noreen Hills APRN AIRPLANE PILOT PHOTOGRAMMETRY Primary Care Provider [phone] Kalyan Galvan Unavailable Unavailable Lashae Trevino [facility] Unavailable [phone] Eduardo Sharma MD Unavailable Marcelo Artis PA-C Unavailable [phone] Rodrigo Man PA-C Unavailable [phone] Reason for Visit Reason Comments Urgent Care Cough cough/sore throat Encounter Details Date Type Department Care Team Description 08/25/2020 Office Visit [facility] [place] nder investigation for COVID-19 (Primary Dx); Urgent Care [place] PA-C Sore throat; [address] [facility] [address] [place] [address] [place] [address] Social History Tobacco Use [...] How often do you attend islam or restorationism Patient refused 08/08/2019 services? Do you belong to any clubs or organizations such as No 08/08/2019 islam groups, unions, fraAdvanced Field Solutions or athletic groups, or school groups? [...] a bandana, T-shirt, or other cloth. The [facility] has instructions on how to [...] that contain caffeine or alcohol. ?? Taking setk-med-euhefuf (OTC) medicine to reduce pain and fever. [...] provider with permission from the publisher. ?? [phone] The [employer]. [address] [place] [address], [place] [id number]. All rights reserved. This information is not [...] secretions in the nose and lungs. ?? Xpzy-uwm-msvscge cold medicines will not shorten the length of time you???re sick, but they may be helpful for the following symptoms: cough, sore throat, and nasal and sinus congestion. If you takeprescription medicines, ask your healthcare provider or pharmacist which unjs-rlb-nmebcmq medicines are safe to use. (Note: Don't [...] it goes along with a muffled voice [employer] last reviewed this educational content on 11/09/2017 ?? 2600-9336 The [employer]. All rights reserved. This information is not [...] in??1/2 cup of warm water ?? An sxjw-cce-ntwxyea anesthetic gargle Use medicine for more relief Eexg-gxa-hioyvum medicine can reduce sore throat symptoms. Ask [...] dizzy or faint ?? Feeling of doom [employer] last reviewed this educational content on 02/09/2019 ?? 5757-8515 The [employer]. All rights reserved. This information is not [...] ??? fluticasone (FLONASE) 50 MCG/ACT nasal spray [place] 1-2 sprays into both nostrils daily 16 [...] the Simplexa COVID-19 Direct Assay on the [employer] MDX instrument. Additional information about this [...] A PCR Not Detected NDET^Not Detected ASSESSMENT: (Z75.500) Person under investigation for COVID-19 (primary encounter [...] a bandana, T-shirt, or other cloth. The [facility] has instructions on how to [...] that contain caffeine or alcohol. ?? Taking bvqz-ppq-cwdjoaa (OTC) medicine to reduce pain and fever. [...] provider with permission from the publisher. ?? 6423-3788 The [employer]. [address] [place], [place] [address] [place] [address]. All rights reserved. This information is not [...] secretions in the nose and lungs. ?? Tvrc-cuo-nullwbj cold medicines will not shorten the length of time you???re sick, but they may be helpful for the following symptoms: cough, sore throat, and nasal and sinus congestion. If you takeprescription medicines, ask your healthcare provider or pharmacist which haym-ekt-azpjdun medicines are safe to use. (Note: Don't [...] it goes along with a muffled voice [employer] last reviewed this educational content on 11/09/2017 ?? 9113-5492 The [employer]. All rights reserved. This information is not [...] in??1/2 cup of warm water ?? An ljhl-qht-oxklrfq anesthetic gargle Use medicine for more relief Kdea-pxx-clawucv medicine can reduce sore throat symptoms. Ask [...] dizzy or faint ?? Feeling of doom [employer] last reviewed this educational content on 02/09/2019 ?? [phone] The [employer]. All rights reserved. This information is not [...] (Coronavirus) by PCR (08/25/2020 7:31 PM CDT) [facility] Method Time Signature SARS-CoV-2 Nasopharyngeal 08/26/2020 INFECTIOUS Virus 3:23 PM CDT DISEASES Specimen DIAGNOSTIC Source LABORATORY, [facility] SARS-CoV-2 NEGATIVE 08/26/2020 INFECTIOUS PCR Result 3:23 PM CDT DISEASES DIAGNOSTIC LABORATORY, [facility] Comment: SARS-CoV2 (COVID-19) RNA not de tected, presumed negative. SARS-CoV-2 PCR Testing was performed using the Simplexa COVID-19 Direct Assay on the [employer] Liaison MDX 08/26/2020 3:23 PM INFECTIOUS DISEASES Comment instrument. Additional info rmation about this Emergency Use Authorization (EUA) assay can CDT DIAGNOSTIC be found via the Lab Guide. L ABORATORY, [facility] Comment: This test should be ordered for [...] COVID-19. This test was validated by the [facility] Infectious Diseases Diagnostic Laboratory. This laboratory [...] Phon e Number INFECTIOUS DISEASES DIAGNOSTIC [address] [facility] [address] LABORATORY, [facility] Group A Streptococcus PCR Throat Swab (08/25/2020 7:31 PM CDT) [facility] Method Time Signature Specimen Throat 08/25/2020 [facility] Description 7:48 PM CDT [facility] [place] Strep Group A Not Detected NDET^Not 08/26/2020 [place] [facility] PCR Detected 2:08 PM CDT [facility] Comment: Group A Streptococcus DNA is not detecte d. FDA approved assay performed using [employer] id GeneXpert real-time PCR. Specimen Anatomical Collection Method Collection Time Receive d Time (Source) Location / / Volume Laterality Specimen from 08/25/2020 7:31 PM 08/26/19 21 7:36 throat CDT PM CDT (specimen) Manuel Archer MD LAB - MICRO GENERAL ORDERABL ES Performing Organization Address City/State/ZIP Code Phon e Number [address] [address] [facility] [place] [address] [place] [address] Symptomatic COVID-19 Virus (Coronavirus) by PCR (08/25/2020 7:31 PM CDT) Component Value Ref Test Analysis Performed At [facility] Range Method Time Signature COVID-19 Nasopharyngeal 08/25/2020 [facility] Virus PCR to 7:40 PM CDT [facility] [place] [facility] [place] - Source COVID-19 Test received-See 08/26/2020 INFECTIOUS Virus PCR to reflex to IDDL 1:00 PM CDT DISEASES [facility] [place] - test SARS CoV2 DIAGNOSTIC Result (COVID-19) Virus LABORATORY, RT-PCR [facility] Specimen (Source) Anatomical Collection Method Collection Time Re ceived Time Location / / Volume Laterality Specimen from 08/25/2020 7:31 08/25/2020 nasopharyngeal PM CDT 7:36 PM CDT structure (specimen) Manuel Archer MD LAB - MICRO GENERAL ORDERABL ES Performing Organization Address City/[facility]/ZIP Code Phon e Number INFECTIOUS DISEASES DIAGNOSTIC [address] [place] [address] LABORATORY, [address] [place] [address] [phone] Streptococcus A Rapid Scr w Reflx to PCR (08/25/2020 7:31 PM CDT) [facility] Method Time Signature Strep Specimen Throat 08/25/2020 [facility] Description 7:[address] [facility] Streptococcus Negative NEG^Negat 08/25/2020 [facility] Group A Rapid jaki 7:[address] [facility] Screen Comment: No Group A streptococcal antigen detecte d by immunoassay. Confirmatory testing in progress. Specimen Anatomical Collection Method Collection Time Receive d Time (Source) Location / / Volume Laterality Specimen from 08/25/2020 7:31 PM 08/26/19 21 7:36 throat CDT PM CDT (specimen) Manuel Archer MD LAB - MICRO GENERAL ORDERABL ES Performing Organization Address City/[facility]/ZIP Code Phon e Number [address] [address] [phone] documented in this encounter Visit Diagnoses Diagnosis Person under investigation for COVID-19 - Primary Sore throat Acute pharyngitis Cough documented in this encounter Additional Health Concerns Infection Onset Date Last Indicated Resolved Time Rule Out COVID-19 08/25/2020 08/25/2020 08/26/2020 3:2 3 PM CDT Assessment Noted Time PHQ-9 Depression Total Score: 5 03/16/2020 7:09 AM CDT documented as of this encounter Care Teams Human Resources Designate Relationship Specialty Start Date End Date Noreen Hills PCP - General Nurse Practitioner 01/09/19 12/12/21 SEAN Haley AIRPLANE PILOT PHOTOGRAMMETRY [address] [facility] [place] [address] Noreen Hills Assigned PCP 06/16/18 SEAN Haley AIRPLANE PILOT PHOTOGRAMMETRY [address] [facility] [place] [address] Kalyan Galvan Personal Advocate & 08/08/19 Liaison (PAL) Lashae Trevino Pharmacist Pharmacist 10/14/19 12/01/20 [facility] 14[address] [facility] [place] [address] Eduardo Sharma MD Assigned Sleep Provider 04/02/20 05/07/21 [address] [place] [address] [place] [id number] Marcelo Artis Assigned Musculoskeletal 08/25/20 08/20/21 MIKAYLA [place]uno Provider [address] [facility] [address] [place], [place] [address] Rodrigo Man Assigned Surgical 08/25/2011/27 MIKAYLA Lacy Provider [address] [place] [address] [place] [id number] documented as of this encounter
--- OUTSIDE RECORDS SUMMARY | 2022-02-02 09:08 | XMS_ITS | Encounter Summary ---
:1965 Author Organization [facility] Address [address] [place] [address] Care Team Providers Name Role Phone Noreen Hills APRN SOUND TESTER Unavailable [phone] Noreen Hills APRN SOUND TESTER Primary Care Provider [phone] Kalyan Galvan Unavailable Unavailable Lashae Trevino [facility] Unavailable [phone] Eduardo Sharma MD Unavailable Marcelo Artis PA-C Unavailable [phone] Rodrigo Man PA-C Unavailable [phone] Encounter Details Date Type Department Care Team [...] How often do you attend episcopal or quaker Patient refused 08/08/2019 services? Do [...] documented as of this encounter Care Teams Desktop Support Manager Relationship Specialty Start Date End Date Noreen Hills PCP - General Nurse Practitioner 01/09/19 12/12/21 SEAN Haley SOUND TESTER [address] [facility] [address] [place], [place] [address] Noreen Hills Assigned PCP 06/16/18 SEAN Haley SOUND TESTER [address] [facility] [address] [place], [place] [address] Kalyan Galvan Personal Advocate & 08/08/19 Liaison (PAL) Lashae Trevino Pharmacist Pharmacist 10/14/19 12/01/20 [facility] [address] [facility] [place] [address] Eduardo Sharma MD Assigned Sleep Provider 04/02/20 05/07/21 [address] [place] [address] [place] [address] Marcelo Artis Assigned Musculoskeletal 08/25/20 08/20/21 MIKAYLA [place]uno Provider [address] [facility] [address] [place] [address] Rodrigo Man Assigned Surgical 08/25/2011/27 MIKAYLA Lacy Provider [address] [place] [address] [place] [address] documented as of this encounter
--- OUTSIDE RECORDS SUMMARY | 2022-02-02 09:08 | XMS_ITS | Encounter Summary ---
:1965 Author Organization [facility] Address [address] [place] [address] Care Team Providers Name Role Phone Noreen Hills APRN PLASTIC CNC MACHINE OPERATOR Unavailable [phone] Noreen Hills APRN PLASTIC CNC MACHINE OPERATOR Primary Care Provider [phone] Kalyan Galvan Unavailable Unavailable Lashae Trevino [facility] Unavailable [phone] Eduardo Sharma MD Unavailable Rios Monteiro MD Unavailable Reason for Visit Reason Comments Medication Refill Encounter Details Date Type Department Care Team Description 07/31/2020 Refill [facility] Noreen Hills, Medication Refill [place] ESTRADA PLASTIC CNC MACHINE OPERATOR [address] [place] [address] [place] [address] [phone] Social History Tobacco Use Types Packs/Day Years [...] How often do you attend congregational or anabaptist Patient refused 08/08/2019 services? Do you belong to any clubs or organizations such as No 08/08/2019 congregational groups, Medypals, fra[employer]Wave or athletic groups, or school groups? How [...] with No / Unsure 07/17/2020 1:32 PM JOB PRESS OPERATOR someone who was confirmed or suspected to have Coronavirus / COVID-19? documented as of this encounter Miscellaneous Notes Telephone Encounter - Russell Lainey - 08/02/2020 12:52 PM CST See message to pt. Lainey Russell on 08/02/2020 at 12:52 PM PRESS OPERATOR Telephone Encounter - Wilda Aponte RN - 08/02/2020 12:15 PM CST Prescription approved per [facility] Refill Protocol. Medication is being filled for 1 time refill only due to: Patient needs to be seen because visit dueApril, please assist in scheduling. Routed to Wilda Aponte RN, BSN Message handled by CLINIC NURSE. PRESS OPERATOR documented in this encounter Plan of Treatment Not on filedocumented as of this encounter Visit Diagnoses Diagnosis Fibromyalgia Mylagia and myositis, unspecified documented in this encounter Additional Health Concerns Assessment Noted Time PHQ-9 Depression Total Score: 5 03/16/2020 7:09 AM CDT documented as of this encounter Care Teams Home Restoration Service Supervisor Relationship Specialty Start Date End Date Noreen Hills PCP - General Nurse Practitioner 01/09/19 12/12/21 SEAN Haley PLASTIC CNC MACHINE OPERATOR [address] [facility] [place] [address] Noreen Hills Assigned PCP 06/16/18 SEAN Haley PLASTIC CNC MACHINE OPERATOR [address] [facility] [place] [address] Kalyan Galvan Personal Advocate & 08/08/19 Liaison (PAL) Lashae Trevino Pharmacist Pharmacist 10/14/19 12/01/20 Kiran [facility] [address] [facility] [place] [id number] Eduardo Sharma MD Assigned Sleep Provider 04/02/20 05/07/21 [address] [place] [address] [place] [address] Rios Monteiro MD Assigned Musculoskeletal 04/02/20 08/24/20 [address] [facility] Provider [address] [address] documented as of this encounter
--- OUTSIDE RECORDS SUMMARY | 2022-02-02 09:08 | XMS_ITS | Encounter Summary ---
:1965 Author Organization [place] Address [address] [place] [address] Care Team Providers Name Role Phone Noreen Hills APRN TRADE SHOW SPECIALIST Unavailable [phone] Noreen Hills APRN, CNP Primary Care Provider [phone] Kalyan Galvan Unavailable Unavailable Eduardo Sharma MD Unavailable Marcelo Artis PA-C Unavailable [phone] Encounter Details Date Type Department Care Team Description 02/28/2021 [facility] Noreen Hills Eagan APRN TRADE SHOW SPECIALIST 3300 [facility] 3305 [facility] [address] [place] [address] [place] [address] [phone] Social History Tobacco Use Types Packs/Day Years [...] How often do you attend tenriism or scientology Patient refused 08/08/2019 services? Do [...] available 3. Did she get a new director case management? Pls let us know who she wants to see and I'll place referral 4. Does she have FIT at home? If not, warehouse order picker at lab. If so, please send in documented in this encounter Plan of Treatment Not on filedocumented as of this encounter Visit Diagnoses Not on filedocumented in this encounter Additional Health Concerns Assessment Noted Time PHQ-9 Depression Total Score: 7 11/10/2020 1:31 PM CDT documented as of this encounter Care Teams Senior Power Scheduler Relationship Specialty Start Date End Date Noreen Hills PCP - General Nurse Practitioner 01/09/19 12/12/21 SEAN Haley TRADE SHOW SPECIALIST [address] [facility] [place] [address] Noreen Hills Assigned PCP 06/16/18 SEAN Haley TRADE SHOW SPECIALIST [address] [facility] [place] [address] Kalyan Galvan Personal Advocate & 08/08/19 Liaison (PAL) Eduardo Sharma MD Assigned Sleep Provider 04/02/20 05/07/21 [address] [facility] [address] [place] [address] Marcelo Artis Assigned Musculoskeletal 08/25/20 08/20/21 MIKAYLA Nuno Provider [address] [facility] [address] [place], [place] [address] documented as of this encounter
--- OUTSIDE RECORDS SUMMARY | 2022-02-02 09:08 | XMS_ITS | Encounter Summary ---
:1965 Author Organization [facility] Address [address] [place] [address] Care Team Providers Name Role Phone Noreen Hills APRN, CNP Unavailable [phone] Noreen Hills APRN, CNP Primary Care Provider [phone] Kalyan Galvan Unavailable Unavailable Eduardo Sharma MD Unavailable Marcelo Artis PA-C Unavailable [phone] Reason for Visit Reason Comments Consult multiple joint pain Consultation (Routine) - Closed Specialty Diagnoses / Procedures Referred By Contact Refer red To Contact Rheumatology Diagnoses Polyarthralgia Kavin Fitzgerald [facility] MIKAYLA Fernandez [facility] and [address] [place], [place] [address] [place] [address] [place] [address] Phone: Fax: Referral ID Status Reason Start Date Expiration Date Visits Requ ested Visits Authorized [id number] Closed 11/12/2020 11/12/2021 1 1 Encounter Details Date Type Department Care Team Description 01/03/2021 Virtual Visit [facility] Kristian Painting M [facility] [address] [address] [address] [place] [address] Social History Tobacco Use Types [...] How often do you attend pentecostalism or islam Patient refused 08/08/2019 services? Do [...] documented as of this encounter Care Teams Pedodontist Relationship Specialty Start Date End Date Noreen Hills PCP - General Nurse Practitioner 01/09/19 12/12/21 SEAN Haley PROFILER [address] [facility] [place] [address] Noreen Hills Assigned PCP 06/16/18 SEAN Haley PROFILER [address] [facility] [place] [address] Kalyan Galvan Personal Advocate & 08/08/19 Liaison (PAL) Eduardo Sharma MD Assigned Sleep Provider 04/02/20 05/07/21 [address] [facility] 103 [place] [address] Marcelo Artis Assigned Musculoskeletal 08/25/20 08/20/21 MIKAYLA Nuno Provider [address] [facility] [address] [place], [place] [address] documented as of this encounter
--- OUTSIDE RECORDS SUMMARY | 2022-02-02 09:08 | XMS_ITS | Encounter Summary ---
:1965 Author Organization [place] Address [address] [place] [address] Care Team Providers Name Role Phone Noreen Hills APRN, CNP Unavailable [phone] Noreen Hills APRN, CNP Primary Care Provider [phone] Kalyan Galvan Unavailable Unavailable Eduardo Sharma MD Unavailable Marcelo Artis PA-C Unavailable [phone] Reason for Visit Reason Comments Medication Refill Encounter Details Date Type Department Care Team Description 01/06/2021 Refill [facility] Noreen Hills, Medication Refill [place] ESTRADA WIND FARM OPERATIONS MANAGER 3305 [facility] [address] [place] [address] [address] [place] [address] [place] [address] [phone] Social History Tobacco Use Types Packs/Day Years [...] How often do you attend pentecostal or taoist Patient refused 08/08/2019 services? Do [...] documented as of this encounter Care Teams Finished Goods Planner Relationship Specialty Start Date End Date Noreen Hills PCP - General Nurse Practitioner 01/09/19 12/12/21 SEAN Haley WIND FARM OPERATIONS MANAGER [address] [place] [address] Noreen Hills Assigned PCP 06/16/18 SEAN Haley WIND FARM OPERATIONS MANAGER [address] [facility] [place] [address] Kalyan Galvan Personal Advocate & 08/08/19 Liaison (PAL) Eduardo Sharma MD Assigned Sleep Provider 04/02/20 05/07/21 [address] [facility] [address] [place], [place] [address] Marcelo Artis Assigned Musculoskeletal 08/25/20 08/20/21 MIKAYLA Nuno Provider [address] [facility] [address] [place], [place] [address] documented as of this encounter
--- OUTSIDE RECORDS SUMMARY | 2022-02-02 09:08 | XMS_ITS | Encounter Summary ---
:1965 Author Organization [place] Address [address] [place] [address] Care Team Providers Name Role Phone Noreen Hills APRN, CNP Unavailable [phone] Noreen Hills APRN, CNP Primary Care Provider [phone] Marcelo Artis PA-C Unavailable [phone] Reason for Visit Reason Onset Date Comments Panel Management 07/25/2021 phys, pap, mammo, co dk, diab, PHQ9, HELGA, imm Encounter Details Date Type Department Care Team Description 07/25/2021 Telephone [facility] Noreen Hills Panel Miriam nash (phys, Clinic [place] APRN CNP pap, mammo, colon, [address] [place] 3305 [facility] diab, PHQ9, HELGA, imm) [facility] [address] [place] [address] [place] [address] [phone] Social History Tobacco Use Types Packs/Day Years [...] review: None Christi Panda CMA Chart closed. TING WORKER Telephone Encounter - Christi Panda MA - 07/28/2021 3:42 PM CST Patient Quality Outreach 2nd Attempt Patient is due for the following: Physical - Due after 08/08/20 And all due below NEXT STEPS: Schedule a yearly physical, mammogram, colonoscopy Type of outreach: Sent letter.+ PHQ9/HELGA Questions for provider review: None Christi Panda MA Chart routed to Care Team. TING WORKER Telephone Encounter - Christi Panda MA - [...] physical, mammogram, colonoscopy Type of outreach: Sent [employer] message.+ PHQ9/HELGA Questions for provider review: None Christi Panda MA Chart routed to Care Team. TING WORKER documented in this encounter Plan of Treatment Not on filedocumented as of this encounter Visit Diagnoses Not on filedocumented in this encounter Additional Health Concerns Assessment Noted Time PHQ-9 Depression Total Score: 7 11/10/2020 1:31 PM CDT documented as of this encounter Care Teams Nurse Private Duty Relationship Specialty Start Date End Date Noreen Hills PCP - General Nurse Practitioner 01/09/19 12/12/21 SEAN Haley EGG BREAKING MACHINE OPERATOR [address] [facility] [address] [place], [place] [address] Noreen Hills Assigned PCP 06/16/18 SEAN Haley EGG BREAKING MACHINE OPERATOR [address] [facility] [address] [place], [place] [address] Marcelo Artis Assigned Musculoskeletal 08/25/20 08/20/21 MIKAYLA Nuno Provider [address] [address] documented as of this encounter
--- OUTSIDE RECORDS SUMMARY | 2022-02-02 09:09 | XMS_ITS | Encounter Summary ---
:1965 Author Organization [place] Address [address] [place] [address] Care Team Providers Name Role Phone Noreen Hills APRN RIG WELDER Unavailable [phone] Noreen Hills APRN RIG WELDER Primary Care Provider [phone] Kalyan Galvan Unavailable Unavailable Lashae Trevino [facility] Unavailable [phone] Eduardo Sharma MD Unavailable Rios Monteiro MD Unavailable Marcelo Artis PA-C Unavailable [phone] Rodrigo Man PA-C Unavailable Reason for Visit Reason Onset Date Comments Refill Request 05/29/2020 omeprazole (PRILOSEC ) [address] capsule Encounter Details Date Type Department Care Team Description 05/29/2020 Refill [facility] [place] Haley APRN CNP (omeprazole (PRILOSEC) [address] [facility] [address] capsule) [facility] [address] [place] [address] [place] [address] [phone] Social History Tobacco Use Types Packs/Day Years [...] How often do you attend christian or baptism Patient refused 08/08/2019 services? Do [...] Keyona Mantilla RN - 05/31/2020 10:42 AM BENZENE WORKER Patient has refills remaining with requesting pharmacy. Keyona Palacios - Registered Nurse [facility] ENE WORKER Telephone Encounter - Kartik Javier - 05/29/2020 5:01 PM CST Alternative Requested: Insurance covers max 90 days in a year. Please submit PA to continue therapy. ENE WORKER documented in this encounter Plan of [...] as of this encounter Care Teams Patient Sitter Relationship Specialty Start Date End Date Noreen Hills PCP - General Nurse Practitioner 01/09/19 12/12/21 SEAN Haley RIG WELDER [address] [facility] [place] [phone] Noreen Hills Assigned PCP 06/16/18 SEAN Haley RIG WELDER [address] [facility] [place] [address] Kalyan Galvan Personal Advocate & 08/08/19 Liaison (PAL) Lashae Trevino Pharmacist Pharmacist 10/14/19 12/01/20 Kiran [facility] [address] [place] [address] Eduardo Sharma MD Assigned Sleep Provider 04/02/20 05/07/[address] [place] [address] Rios Monteiro MD Assigned Musculoskeletal 04/02/20 08/24/20 [address] [facility] Provider [address] [place], [place] [address] Marcelo Artis Assigned Musculoskeletal 08/25/20 08/20/21 MIKAYLA Nuno Provider [address] [place], [place] [address] Rodrigo Man Assigned Surgical 08/25/2011/27 MIKAYLA Lacy Provider [address] [place] [id number] documented as of this encounter
--- OUTSIDE RECORDS SUMMARY | 2022-02-02 09:09 | XMS_ITS | Encounter Summary ---
:1965 Author Organization [place] Address [address] [place] [address] Care Team Providers Name Role Phone Noreen Hills APRN WIRELINE OPERATOR Unavailable [phone] Noreen Hills APRN WIRELINE OPERATOR Primary Care Provider [phone] Kalyan Galvan Unavailable Unavailable Lashae Trevino [facility] Unavailable [phone] Reason for Visit Reason Comments Surgical Followup Right Trigger release, DOS , Dr. Monteiro Encounter Details Date Type Department Care Team Description 02/19/2020 Office Visit [facility] Marcelo Artis opedic aftercare Orthopedic [facility] MIKAYLA Nuno (Primary Dx) [place] [address] [facility] [address] [facility] [address] [place] [address] [place] [address] [phone] Social History Tobacco Use Types Packs/Day Years [...] How often do you attend buddhism or religion Patient refused 08/08/2019 services? 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 Marcelo Artis PA-C Dept. Orthopedic Surgery [facility] 02/19/2020 documented in this encounter Plan of Treatment Not on filedocumented as of this encounter Visit Diagnoses Diagnosis Orthopedic aftercare - Primary Unspecified orthopedic aftercare documented in this encounter Additional Health Concerns Assessment Noted Time PHQ-9 Depression Total Score: 9 08/09/2019 7:03 AM CONTRACT ASSISTANT documented as of this encounter Care Teams Field Investigator Relationship Specialty Start Date End Date Noreen Hills PCP - General Nurse Practitioner 01/09/19 12/12/21 SEAN Haley WIRELINE OPERATOR [address] [facility] [place] [address] Noreen Hills Assigned PCP 06/16/18 SEAN Haley WIRELINE OPERATOR [address] [facility] [place] [address] Kalyan Galvan Personal Advocate & 08/08/19 Liaison (PAL) Lashae Trevino Pharmacist Pharmacist 10/14/19 12/01/20 Kiran, [facility] [address] [place] [address] documented as of this encounter
--- OUTSIDE RECORDS SUMMARY | 2022-02-02 09:09 | XMS_ITS | Encounter Summary ---
:1965 Author Organization [place] Address [address] [place] [address] Care Team Providers Name Role Phone Noreen Hills APRN PLANT TECH Unavailable [phone] Noreen Hills APRN PLANT TECH Primary Care Provider [phone] Kalyan Galvan Unavailable Unavailable Lashae Trevino [facility] Unavailable [phone] Eduardo Sharma MD Unavailable Rios Monteiro MD Unavailable Reason for Visit Reason Comments Medication Refill Encounter Details Date Type Department Care Team Description 03/07/[address] [facility] Noreen Hills, Medication Refill Pino MIRELESN PLANT TECH [address] [facility] [address] [place] [address] [address] [place] [address] [place] [address] [phone] Social History Tobacco Use Types Packs/Day Years [...] How often do you attend congregational or restorationism Patient refused 08/08/2019 services? Do you belong to any clubs or organizations such as No 08/08/2019 congregational groups, unions, fraAdatao or athletic groups, or school groups? How [...] the [facility] refill protocol Radha Manning, RN [facility] -- Triage Nurse documented in this encounter Plan of Treatment Not on filedocumented as of this encounter Visit Diagnoses Diagnosis Persistent insomnia Persistent disorder of initiating or martínez ntaining sleep documented in this encounter Additional Health Concerns Assessment Noted Time PHQ-9 Depression Total Score: 9 08/09/2019 7:03 AM SERVICE DESK AGENT documented as of this encounter Care Teams Car Sales Consultant Relationship Specialty Start Date End Date Noreen Hills PCP - General Nurse Practitioner 01/09/19 12/12/21 SEAN Haley PLANT TECH [address] [facility] [place] [address] Noreen Hills Assigned PCP 06/16/18 SEAN Haley PLANT TECH [address] [facility] [place] [address] Kalyan Galvan Personal Advocate & 08/08/19 Liaison (PAL) Lashae Trevino Pharmacist Pharmacist 10/14/19 12/01/20 [facility] [address] [facility] [place] [address] Eduardo Sharma MD Assigned Sleep Provider 04/02/20 05/07/21 [address] [place] [address] Rios Monteiro MD Assigned Musculoskeletal 04/02/20 08/24/20 [address] Fracture Provider [address] [place] [address] documented as of this encounter
--- OUTSIDE RECORDS SUMMARY | 2022-02-02 09:09 | XMS_ITS | Encounter Summary ---
:1965 Author Organization [place] Address [address] [place] [address] Care Team Providers Name Role Phone Noreen Hills APRN MINE LABORER Unavailable [phone] Noreen Hills APRN MINE LABORER Primary Care Provider [phone] Kalyan Galvan Unavailable Unavailable Lashae Trevino [facility] Unavailable [phone] Reason for Visit Reason Comments Pain Consultation (Routine) - Closed Specialty Diagnoses / Procedures Referred By Contact Refer red To Contact Diagnoses Pain of right thumb Ramin Romero MD 2019 [facility] 06 11 [place], [place] [address]-7762 Referral ID Status Reason Start Date Expiration Date Visits Requ ested Visits Authorized [id number] Closed 01/02/2020 01/01/2021 1 1 Encounter Details Date Type Department Care Team Description 01/12/2020 Office Visit [facility] Rios Monteiro Trigg er finger of right thumb (Primary Dx); Orthopedic Clinic Pain of right thumb; [place] [address] [place] Hand arthritis [address] [facility] [address] [place] [address] [phone] (Wo rk) Social History Tobacco Use Types [...] How often do you attend samaritan or tenriism Patient refused 08/08/2019 services? 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 She has been able to modify her [...] ??? Cardiovascular Mother [place] age 72 ??? Diabetes Mother Type II ??? Hypertension Mother ??? Lipids Mother ??? Arthritis Mother OA ??? Kidney Disease Mother 70 ??? Cardiovascular Father [place] early 40s, subsequent bipass ??? Hypertension Father [...] a week Gets together: Patient refused Attends tenriism service: Patient refused Active member of club or organization: No Attends meetings of clubs or organizations: Patient refused Relationship status: ??? Intimate partner violence Fear of current or ex partner: Not on file Emotionally abused: Not on file Physically abused: Not on file Forced sexual activity: Not on file Other Topics Concern ??? Parent/sibling w/ CABG, [place] or angioplasty before 65F 55M? No Social [...] ??? fluticasone (FLONASE) 50 MCG/ACT nasal spray [place] 1-2 sprays into both nostrils daily 16 [...] Depression Total Score: 9 08/09/2019 7:03 AM UTILITIES MANAGER documented as of this encounter Care Teams Machine Bookkeeper Relationship Specialty Start Date End Date Noreen Hills PCP - General Nurse Practitioner 01/09/19 12/12/21 SEAN Haley MINE LABORER [address] [facility] [place] [address] Noreen Hills Assigned PCP 06/16/18 SEAN Haley MINE LABORER [address] [facility] [place] [address] Kalyan Galvan Personal Advocate & 08/08/19 Liaison (PAL) Lashae Trevino Pharmacist Pharmacist 10/14/19 [facility]/01/[facility] 1440 [facility] [place] [address] documented as of this encounter
--- OUTSIDE RECORDS SUMMARY | 2022-02-02 09:09 | XMS_ITS | Encounter Summary ---
:1965 Author Organization [place] Address [address] [place] [address] Care Team Providers Name Role Phone Noreen Hills APRN FLOOR RENOVATOR Unavailable [phone] Noreen Hills APRN FLOOR RENOVATOR Primary Care Provider [phone] Kalyan Galvan Unavailable Unavailable Lashae Trevino [facility] Unavailable [phone] Reason for Visit Reason Onset Date Comments Schedule Surgery 01/13/2020 right thumb trigger finger Encounter Details Date Type Department Care Team Description 01/13/2020 [facility] Schedule Surgery [facility] [address] [facility] (r ight thumb trigger [place] [address] finger) [address] [place] [address] [address] [place] [address] [phone] Social History Tobacco Use Types Packs/Day Years [...] How often do you attend congregational or roman catholic Patient refused 08/08/2019 services? [...] completed: Not Applicable Date: 01/13/20 Avila Donnelly, Monotypist documented in this encounter Plan of Treatment Not on filedocumented as of this encounter Results Asymptomatic COVID-19 Virus (Coronavirus) by PCR (02/06/2020 4:07 PM CDT) [facility] Method Time Signature COVID-19 Nasopharyngeal 02/06/2020 [place] Virus PCR to 4:35 PM CDT [facility] COVID-19 Not Detected 02/07/2020 [facility] Virus PCR to 2:10 PM CDT [facility] GENOMICS Result CENTER LAB[facility] Comment: Collection [...] N1,N2 gene targets of CoV2 and human GASKET INSPECTOR as an internal control. A negative result [...] (Centers for Disease Control) Testing performed by General acute hospital, Room 1-210, [address] [place] [address]. T his test was developed and its performance characteristics determined b y the [facility]. It has not been cleared [...] Organization Address City/State/ZIP Code Phon e Number [address] [address] [facility] CENTER LABORATORY Room: [address] [place] [address] [facility] documented in this encounter Visit Diagnoses Diagnosis Trigger finger of right thumb - Primary Pre-op testing Preoperative examination, unspecified documented in this encounter Additional Health Concerns Assessment Noted Time PHQ-9 Depression Total Score: 9 08/09/2019 7:03 AM FINANCIAL BUSINESS ANALYST documented as of this encounter Care Teams Health Information Director Relationship Specialty Start Date End Date Noreen Hills PCP - General Nurse Practitioner 01/09/19 12/12/21 SEAN Haley FLOOR RENOVATOR [address] [facility] [place] [phone] Noreen Hills Assigned PCP 06/16/18 SEAN Haley FLOOR RENOVATOR 3305 [facility] [place] [phone] Kalyan Galvan Personal Advocate & 08/08/19 Liaison (PAL) Lashae Trevino Pharmacist Pharmacist 10/14/19 12/01/20 Kiran, [facility] [address] [place] [address] documented as of this encounter
--- OUTSIDE RECORDS SUMMARY | 2022-02-02 09:09 | XMS_ITS | Encounter Summary ---
:1965 Author Organization [place] Address [address] [place] [address] Care Team Providers Name Role Phone Noreen Hills APRN, CNP Unavailable [phone] Noreen Hills APRN, CNP Primary Care Provider [phone] Kalyan Galvan Unavailable Unavailable Lashae Trevino [facility] Unavailable [phone] Eduardo Sharma MD Unavailable Rios Monteiro MD Unavailable Marcelo Artis PA-C Unavailable [phone] Rodrigo Man PA-C Unavailable [phone] Reason for Visit Reason Onset Date Comments Refill Request 06/14/2020 blood glucose monito ring (ONE TOUCH DELICA) lancets Refill Request 06/14/2020 blood glucose (ACCU- CHEK JANICE) test strip Encounter Details Date Type Department Care Team Description 06/14/[address] [facility] Noreen Hills Req uest (blood Clinic [place]ino Haley APRN CNP glucose monitoring (ONE [address] [place] [address] [place] TOUCH DELICA) lancets); [facility] Refclaudia Request (blood [address] [place] [address] glucose ([place] [id number] JANICE) test strip) [phone] Social History Tobacco Use Types Packs/Day Years [...] Christy Pelayo RN - 06/16/2020 11:04 AM INTERNATIONAL TRADE TEACHER Prescription approved per [facility] Refill Protocol. Christy Pelayo RN Flex RNATIONAL TRADE TEACHER Telephone Encounter - Wilda Gupta - 06/14/2020 3:55 PM CST Request from pharmacy states: ONE TOUCH VERIO TEST STRIPS and ONE TOUCH 30G DELICA LNC, RNATIONAL TRADE TEACHER documented in this encounter Plan of Treatment [...] documented as of this encounter Care Teams Catering Chef Relationship Specialty Start Date End Date Noreen Hills PCP - General Nurse Practitioner 01/09/19 12/12/21 SEAN Haley REINSURANCE CLAIMS ANALYST [address] [facility] [place] [address] Noreen Hills Assigned PCP 06/16/18 SEAN Haley REINSURANCE CLAIMS ANALYST [address] [facility] [place] [address] Kalyan Galvan Personal Advocate & 08/08/19 Liaison (PAL) Lashae Trevino Pharmacist Pharmacist 10/14/19 12/01/20 [facility] [address] [facility] [address] [place], [place] [address] Eduardo Sharma MD Assigned Sleep Provider 04/02/20 05/07/[address] [place] [address] Rios Monteiro MD Assigned Musculoskeletal 04/02/20 08/24/20 [address] [facility] Provider [address] [place], [place] [address] Marcelo Artis Assigned Musculoskeletal 08/25/20 08/20/21 MIKAYLA Nuno Provider [address] [place], [place] [address] Rodrigo Man Assigned Surgical 08/25/2011/27 MIKAYLA Lacy Provider [address] [place] [address] documented as of this encounter
--- OUTSIDE RECORDS SUMMARY | 2022-02-02 09:09 | XMS_ITS | Encounter Summary ---
:1965 Author Organization [place] Address [address] [place] [address] Care Team Providers Name Role Phone Noreen Hills APRN, CNP Unavailable [phone] Noreen Hills APRN, CNP Primary Care Provider [phone] Kalyan Galvan Unavailable Unavailable Lashae Trevino [facility] Unavailable [phone] Reason for Visit Reason Onset Date Comments Medication Request 03/22/2020 Metformin. Encounter Details Date Type Department Care Team Description 03/22/2020 Telephone [facility] Noreen Hills Medication Request Clinic [place] Haley APRN CNP (Metformin.) [address] [place] [address] [facility] [address] [place] [address] [place] [address] [phone] Social History Tobacco Use Types Packs/Day Years [...] How often do you attend advent or anabaptist Patient refused 08/08/2019 services? Do [...] at 9:14 AM on March 23, 2020 [facility] Health Guide [phone] Telephone Encounter - Charlotte Mark CMA - 03/22/2020 10:33 AM CDT Fax rec'd from [facility] pharmacy, directions for Metformin 500mg state take [...] Chro Relationship Specialty Start Date End Date Noreen Hills PCP - General Nurse Practitioner 01/09/19 12/12/21 SEAN Haley CONDUCTOR PULLMAN [address]305 [facility] [place] [address] Noreen Hills Assigned PCP 06/16/18 SEAN Haley CONDUCTOR PULLMAN [address] [facility] [place] [address] Kalyan Galvan Personal Advocate & 08/08/19 Liaison (PAL) Lashae Trevino Pharmacist Pharmacist 10/14/19 12/01/20 Kiran [facility] [address] [place] [address] documented as of this encounter
--- OUTSIDE RECORDS SUMMARY | 2022-02-02 09:09 | XMS_ITS | Encounter Summary ---
:1965 Author Organization [place] Address [address] [place] [address] Care Team Providers Name Role Phone Noreen Hills APRN DRAWING TRACER Unavailable [phone] Noreen Hills APRN DRAWING TRACER Primary Care Provider [phone] Kalyan Galvan Unavailable Unavailable Lashae Trevino [facility] Unavailable [phone] Reason for Visit Diagnostic Imaging XR (Routine) - Closed Specialty Diagnoses / Procedures Referred By Contact Refer red To Contact Diagnoses Pain of right thumb Ramin Romero MD Procedures XR Finger Right G/E [address] Views [address] [phone] Referral ID Status Reason Start Date Expiration Date Visits Requ ested Visits Authorized [id number] Closed 01/02/2020 01/01/2021 1 1 Encounter Details Date Type Department Care Team Description 01/02/[address] [facility] Ramin Romero Pai n of right thumb Clinic Pino SALDANA [address] [place] [address] [place] [address] [address] [place] [address] [place] [address] Social History Tobacco Use Types Packs/Day [...] How often do you attend bahai or yazidi Patient refused 08/08/2019 services? Do you belong to any clubs or organizations such as No 08/08/2019 bahai groups, [employer], [employer] or athletic groups, or school groups? How [...] Depression Total Score: 9 08/09/2019 7:03 AM FORM BLOCK MAKER documented as of this encounter Care Teams Assembler Product Relationship Specialty Start Date End Date Noreen Hills PCP - General Nurse Practitioner 01/09/19 12/12/21 SEAN Haley DRAWING TRACER [address] [facility] [address] [place], [place] [phone] Noreen Hills Assigned PCP 06/16/18 SEAN Haley DRAWING TRACER [address] [facility] [place] [phone] Kalyan Galvan Personal Advocate & 08/08/19 Liaison (PAL) Lashae Trevino Pharmacist Pharmacist 10/14/19 12/01/20 Kiran, [facility] [address] [facility] [address] [place], [place] [id number] documented as of this encounter
--- OUTSIDE RECORDS SUMMARY | 2022-02-02 09:09 | XMS_ITS | Encounter Summary ---
:1965 Author Organization [place] Address [address] [place] [address] Care Team Providers Name Role Phone Noreen Hills APRN ISSUING OPERATOR Unavailable [phone] Noreen Hills APRN ISSUING OPERATOR Primary Care Provider [phone] Kalyan Galvan Unavailable Unavailable Lashae Trevino [facility] Unavailable [phone] Encounter Details Date Type Department Care [...] How often do you attend baptism or sikhism Patient refused 08/08/2019 services? Do [...] Depression Total Score: 9 08/09/2019 7:03 AM CAMPUS SUPERVISOR documented as of this encounter Care Teams Licensed Occupational Therapy Assistant Relationship Specialty Start Date End Date Noreen Hills PCP - General Nurse Practitioner 01/09/19 12/12/21 SEAN Haley ISSUING OPERATOR [address] [facility] [address] [place], [place] [address] Noreen Hills PCP 06/16/18 SEAN Haley ISSUING OPERATOR [address] [place] [address] Kalyan Galvan Personal Advocate & 08/08/19 Liaison (PAL) Lashae Trevino Pharmacist Pharmacist 10/14/19 [facility]/01/[facility] [address] [facility] [address] [place], [place] [address] documented as of this encounter
--- OUTSIDE RECORDS SUMMARY | 2022-02-02 09:09 | XMS_ITS | Encounter Summary ---
:1965 Author Organization [place] Address [address] [place] [address] Care Team Providers Name Role Phone Noreen Hills APRN ROOM MANAGER Unavailable [phone] Noreen Hills APRN ROOM MANAGER Primary Care Provider [phone] Kalyan Galvan Unavailable Unavailable Lashae Trevino [facility] Unavailable [phone] Encounter Details Date Type Department Care Team Description 03/09/[address] [facility] Marcelo Artis, Orthopedic Clinic MIKAYLA [place] [address] [facility] [address] [facility] [address] [place] [address] [place], [place] [address] [phone] Social History Tobacco Use Types Packs/Day Years [...] How often do you attend uatsdin or synagogue Patient refused 08/08/2019 services? Do [...] cardboard with a scissors due to discomfort. Medical Supervisor informed Megan that swelling is normal after surgery, and make take ~6 weeks to fully dissipate. She approved of verbiage for updated work letter to say the following OK to return to work with no restrictions on 03/11/20. If she is unable to tolerate her normal work duties and she will follow up with my office for reevaluation. Patient will access letter via [employer]. Latisha Morales ATC Telephone Encounter - Kleber [...] Depression Total Score: 9 08/09/2019 7:03 AM CURRICULUM AND INSTRUCTION DIRECTOR documented as of this encounter Care Teams Transportation Security Screener Relationship Specialty Start Date End Date Noreen Hills PCP - General Nurse Practitioner 01/09/19 12/12/21 SEAN Haley ROOM MANAGER [address] [facility] [place] [address] Noreen Hills Assigned PCP 06/16/18 SEAN Haley ROOM MANAGER [address] [facility] [place] [address] Kalyan Galvan Personal Advocate & 08/08/19 Liaison (PAL) Lashae Trevino Pharmacist Pharmacist 10/14/19 12/01/20 Kiran [facility] [address] [place] [address] documented as of this encounter
--- OUTSIDE RECORDS SUMMARY | 2022-02-02 09:09 | XMS_ITS | Encounter Summary ---
:1965 Author Organization [place] Address [address] [place] [address] Care Team Providers Name Role Phone Noreen Hills APRN BACKHOE OPERATOR Unavailable [phone] Noreen Hills APRN BACKHOE OPERATOR Primary Care Provider [phone] Kalyan Galvan Unavailable Unavailable Lashae Trevino [facility] Unavailable [phone] Encounter Details Date Type Department Care [...] How often do you attend muslim or taoism Patient refused 08/08/2019 services? Do [...] Depression Total Score: 9 08/09/2019 7:03 AM CARDIOPULMONARY TECHNOLOGIST CHIEF documented as of this encounter Care Teams Production Roustabout Relationship Specialty Start Date End Date Noreen Hills PCP - General Nurse Practitioner 01/09/19 12/12/21 SEAN Haley BACKHOE OPERATOR [address] [place], [place] [address] Noreen Hills PCP 06/16/18 SEAN Haley BACKHOE OPERATOR [address] [place] [address] Kalyan Galvan Personal Advocate & 08/08/19 Liaison (PAL) Lashae Trevino Pharmacist Pharmacist 10/14/19 12/01/20 [facility] [address] [place], [place] [address] documented as of this encounter
--- OUTSIDE RECORDS SUMMARY | 2022-02-02 09:09 | XMS_ITS | Encounter Summary ---
:1965 Author Organization [place] Address [address] [place] [address] Care Team Providers Name Role Phone Noreen Hills APRN ACTUARIAL DIRECTOR Unavailable [phone] Noreen Hills APRN ACTUARIAL DIRECTOR Primary Care Provider [phone] Kalyan Galvan Unavailable Unavailable Lashae Trevino [facility] Unavailable [phone] Reason for Visit Reason Onset Date Comments Covid 19 Testing 02/06/2020 Encounter Details Date Type Department Care Team Description 02/06/2020 Orders Only [facility] Marcelo Artis zachary finger of Urgent Care Jolly Nuno PA-C right thumb [address] [address] [place], [place] [id number] (Wo rk) Social History Tobacco Use Types [...] How often do you attend spiritism or hindu Patient refused 08/08/2019 services? Do [...] (Coronavirus) by PCR (02/06/2020 4:07 PM CDT) [facility] Method Time Signature COVID-19 Nasopharyngeal 02/06/2020 [place] Virus PCR to 4:35 PM CDT [facility] Source [facility] COVID-19 Not Detected 02/07/2020 [facility] Virus PCR to 2:10 PM CDT [facility] - GENOMICS Result CENTER LABORATORY [...] N1,N2 gene targets of CoV2 and human SUPERCHARGER REPAIR SUPERVISOR as an internal control. A negative result [...] (Centers for Disease Control) Testing performed by [facility], Room 1-210, [address] [place] [address]. T his test was developed and its performance characteristics determined [facility]. It has not been cleared or appr [...] Organization Address City/State/ZIP Code Phon e Number [address] [address] [facility] CENTER LABORATORY Room: 1-[address] [address] [facility] documented in this encounter Visit Diagnoses Diagnosis Trigger finger of right thumb documented in this encounter Additional Health Concerns Assessment Noted Time PHQ-9 Depression Total Score: 9 08/09/2019 7:03 AM POOL HALL INSPECTOR documented as of this encounter Care Teams Weigh Machine Operator Relationship Specialty Start Date End Date Noreen Hills PCP - General Nurse Practitioner 01/09/19 12/12/21 SEAN Haley ACTUARIAL DIRECTOR [address] [facility] [place] [address] Noreen Hills Assigned PCP 06/16/18 SEAN Haley ACTUARIAL DIRECTOR [address] [facility] [place] [address] Kalyan Galvan Personal Advocate & 08/08/19 Liaison (PAL) Lashae Trevino Pharmacist Pharmacist 10/14/19 12/01/20 Kiran, [facility] [address] [place] [address] documented as of this encounter
--- OUTSIDE RECORDS SUMMARY | 2022-02-02 09:09 | XMS_ITS | Encounter Summary ---
:1965 Author Organization [place] Address [address] [place] [address] Care Team Providers Name Role Phone Noreen Hills APRN REGULATORY AFFAIRS MANAGER Unavailable [phone] Noreen Hills APRN REGULATORY AFFAIRS MANAGER Primary Care Provider [phone] Kalyan Galvan Unavailable Unavailable Lashae Trevino [facility] Unavailable [phone] Eduardo Sharma MD Unavailable Rios Monteiro MD Unavailable Marcelo Artis PA-C Unavailable [phone] Rodrigo Man PA-C Unavailable [phone] Reason for Visit Reason Comments Medication Refill Encounter Details Date Type Department Care Team Description 06/18/2020 Refill [facility] Noreen Hills, Medication Refill Pino SIXTH GRADE TEACHER REGULATORY AFFAIRS MANAGER [address] [facility] [address] [place] [address] [address] [place] [address] [place] [address] [phone] Social History Tobacco Use Types Packs/Day Years [...] How often do you attend taoism or mandaen Patient refused 08/08/2019 services? Do [...] 06/18/2020 10:53 AM CST Prescription approved per [facility] Refill Protocol. Desirae Champagne RN on 06/18/2020 at 10:52 AM [place] GREETER documented in this encounter Plan of Treatment [...] documented as of this encounter Care Teams Edge Inker Relationship Specialty Start Date End Date Noreen Hills PCP - General Nurse Practitioner 01/09/19 12/12/21 SEAN Haley REGULATORY AFFAIRS MANAGER [address] [facility] [place] [address] Noreen Hills Assigned PCP 06/16/18 SEAN Haley REGULATORY AFFAIRS MANAGER [address] [facility] [place] [address] Kalyan Galvan Personal Advocate & 08/08/19 Liaison (PAL) Lashae Trevino Pharmacist Pharmacist 10/14/19 12/01/[address] [facility] [address] [facility] [place] [address] Eduardo Sharma MD Assigned Sleep Provider 04/02/20 05/07/21 [address] ROSHAN [address] [place] [address] Rios Monteiro MD Assigned Musculoskeletal 04/02/20 08/24/20 [address] [employer] Provider ROSHAN [address] [place] [address] Marcelo Artis Assigned Musculoskeletal 08/25/20 08/20/21 MIKAYLA Nuno Provider [address] [facility] 300 [place] [address] Rodrigo Man Assigned Surgical 08/25/2011/27 MIKAYLA Lacy Provider [address] [facility] 450 [place], [place] [address] documented as of this encounter
--- OUTSIDE RECORDS SUMMARY | 2022-02-02 09:09 | XMS_ITS | Encounter Summary ---
:1965 Author Organization [place] Address [address] [place] [address] Care Team Providers Name Role Phone Noreen Hills APRN TILTING HEAD BAND SAWYER Unavailable [phone] Noreen Hills APRN TILTING HEAD BAND SAWYER Primary Care Provider [phone] Kalyan Galvan Unavailable Unavailable Lashae Trevino [facility] Unavailable [phone] Encounter Details Date Type Department Care Team Description 01/13/2020 Orders Only [facility] Typ e 2 diabetes mellitus [facility] with complication, without [address] [facility] ng-term current use of Drive insulin (H) [...] How often do you attend religion or advent Patient refused 08/08/2019 services? Do [...] 6.1 (H) 0 - 5.6 % 01/13/2020 CAMAK 9:27 AM CDT [facility] Comment: Normal <5.7% Prediabetes 5.7-6.4% ??Diab etes 6.5% or higher - adopted from ADA consensus guidelines. Specimen Anatomical Collection Method Collection Time Receive d Time (Source) Location / / Volume Laterality Blood specimen 01/13/2020 8:55 AM 020 8:56 (specimen) CDT AM CDT Noreen Hills APRN TILTING HEAD BAND SAWYER LAB - BLOOD ORDERABLES Performing Organization Address City/State/ZIP Code Phon e Number [facility] [address] [facility] [place] [address] documented in this encounter Visit Diagnoses Diagnosis Type 2 diabetes mellitus with complicati on, without long-term current use of insulin (H) documented in this encounter Additional Health Concerns Assessment Noted Time PHQ-9 Depression Total Score: 9 08/09/2019 7:03 AM GREASE CUP FILLER documented as of this encounter Care Teams Extrusion Die Template Maker Relationship Specialty Start Date End Date Noreen Hills PCP - General Nurse Practitioner 01/09/19 12/12/21 SEAN Haley TILTING HEAD BAND SAWYER [address] [facility] [place] [address] Noreen Hills Assigned PCP 06/16/18 SEAN Haley TILTING HEAD BAND SAWYER [address] [facility] [place] [address] Kalyan Galvan Personal Advocate & 08/08/19 Liaison (PAL) Lashae Trevino Pharmacist Pharmacist 10/14/19 12/01/20 [facility] [address] [facility] [place] [address] documented as of this encounter
--- OUTSIDE RECORDS SUMMARY | 2022-02-02 09:09 | XMS_ITS | Encounter Summary ---
:1965 Author Organization [place] Address [address] [place] [address] Care Team Providers Name Role Phone Noreen Hills APRN PUMP ATTENDANT Unavailable [phone] Noreen Hills APRN PUMP ATTENDANT Primary Care Provider [phone] Kalyan Galvan Unavailable Unavailable Lashae Trevino [facility] Unavailable [phone] Reason for Visit Reason Comments Medication Refill Encounter Details Date Type Department Care Team Description 02/05/2020 Refill [facility] Noreen Hills, Medication Refill Pino ESTRADA PUMP ATTENDANT [address] [facility] [address] [place] [address] [address] [place] [address] [place] [address] [phone] Social History Tobacco Use Types Packs/Day Years [...] Depression Total Score: 9 08/09/2019 7:03 AM BIOMEDICAL SERVICE ENGINEER documented as of this encounter Care Teams Mechanical Pencils Assembler Relationship Specialty Start Date End Date Noreen Hills PCP - General Nurse Practitioner 01/09/19 12/12/21 SEAN Haley PUMP ATTENDANT [address] [facility] [place] [phone] Noreen Hills Assigned PCP 06/16/18 SEAN Haley PUMP ATTENDANT [address] [facility] [place] [address] Kalyan Galvan Personal Advocate & 08/08/19 Liaison (PAL) Lashae Trevino Pharmacist Pharmacist 10/14/19 12/01/20 [facility] [address] [facility] [place] [id number] documented as of this encounter
--- OUTSIDE RECORDS SUMMARY | 2022-02-02 09:09 | XMS_ITS | Encounter Summary ---
:1965 Author Organization [place] Address [address] [place] [address] Care Team Providers Name Role Phone Noreen Hills APRN RADIOLOGICAL DEFENSE OFFICER Unavailable [phone] Noreen Hills APRN, CNP Primary Care Provider [phone] Kalyan Galvan Unavailable Unavailable Lashae Trevino [facility] Unavailable [phone] Eduardo Sharma MD Unavailable Rios Monteiro MD Unavailable Reason for Visit Reason Onset Date Comments Panel Management 04/06/2020 eye exam Encounter Details Date Type Department Care Team Description 04/06/2020 Telephone [facility] JeanaNoreen girarda saad (eye Clinic [place]ino Haley APRN RADIOLOGICAL DEFENSE OFFICER exam) [address] [place] [address] [facility] [address] [place] [address] [place] [address] [phone] Social History Tobacco Use Types Packs/Day Years [...] How often do you attend confucianist or quaker Patient refused 08/08/2019 services? Do [...] appt in Jun 2020. Christi Panda CMA OR FIELD ENGINEER Telephone Encounter - Christi Panda MA - 04/09/2020 9:09 AM CDT Reminder letter mailed to patient. Christi Panda CMA Telephone Encounter - Christi Panda MA - 04/06/2020 3:33 PM CDT Images from the original note were not included. Patient Quality Outreach Summary: Patient is due/failing the following: Eye Exam and Immunizations Type of outreach: [employer] message. Questions for provider review: None Start [...] documented as of this encounter Care Teams Planer Setter Relationship Specialty Start Date End Date Noreen Hills PCP - General Nurse Practitioner 01/09/19 12/12/21 SEAN Haley RADIOLOGICAL DEFENSE OFFICER [address] [facility] [place] [address] Noreen Hills Assigned PCP 06/16/18 SEAN Haley RADIOLOGICAL DEFENSE OFFICER [address] [facility] [place] [address] Kalyan Galvan Personal Advocate & 08/08/19 Liaison (PAL) Lashae Trevino Pharmacist Pharmacist 10/14/19 12/01/20 [facility] [address] [facility] [place] [phone] Eduardo Sharma MD Assigned Sleep Provider 04/02/20 05/07/21 6363 CAT Britton [address]HAN [address] [place] [address] Rios Monteiro MD Assigned Musculoskeletal 04/02/20 08/24/20 [address] [facility] Provider ROSHAN [address] [place], [place] [address] documented as of this encounter
--- OUTSIDE RECORDS SUMMARY | 2022-02-02 09:09 | XMS_ITS | Encounter Summary ---
:1965 Author Organization [place] Address [address] [place] [address] Care Team Providers Name Role Phone Noreen Hills APRN GRAVITY PROSPECTING OBSERVER HELPER Unavailable [phone] Noreen Hills APRN GRAVITY PROSPECTING OBSERVER HELPER Primary Care Provider [phone] Kalyan Galvan Unavailable Unavailable Lashae Trevino [facility] Unavailable [phone] Encounter Details Date Type Department Care [...] How often do you attend restoration or temple Patient refused 08/08/2019 services? Do [...] Depression Total Score: 9 08/09/2019 7:03 AM COMBUSTION ANALYST documented as of this encounter Care Teams Supervising Law Enforcement Analyst Relationship Specialty Start Date End Date Noreen Hills PCP - General Nurse Practitioner 01/09/19 12/12/21 SEAN Haley GRAVITY PROSPECTING OBSERVER HELPER [address] [facility] [address] [place] [address] Noreen Hills PCP 06/16/18 SEAN Haley GRAVITY PROSPECTING OBSERVER HELPER [address] [facility] [place] [address] Kalyan Galvan Personal Advocate & 08/08/19 Liaison (PAL) Lashae Trevino Pharmacist Pharmacist 10/14/19 12/01/20 [facility] [address] [facility] [address] [place], [place] [address] documented as of this encounter
--- OUTSIDE RECORDS SUMMARY | 2022-02-02 09:09 | XMS_ITS | Encounter Summary ---
:1965 Author Organization [place] Address [address] [place] [address] Care Team Providers Name Role Phone Noreen Hills APRN, CNP Unavailable [phone] Noreen Hills APRN, CNP Primary Care Provider [phone] Kalyan Galvan Unavailable Unavailable Lashae Trevino [facility] Unavailable [phone] Eduardo Sharma MD Unavailable Rios Monteiro MD Unavailable Reason for Visit Reason Onset Date Comments Prior Auth - Medication 06/17/2020 Omeprazole Encounter Details Date Type Department Care Team Description 06/17/2020 Telephone [facility] Noreen Hills Prior Auth - Medication Clinic [place] Haley APRN CNP (Omeprazole) [address] [place] [address] [facility] [address] [place] [address] [place] [address] [phone] Social History Tobacco Use Types Packs/Day Years [...] How often do you attend advent or roman catholic Patient refused 08/08/2019 services? Do you belong to any clubs or organizations such as No 08/08/2019 advent groups, Visual IQs, fraternal or athletic groups, or school groups? [...] Approved Dose/Quantity: Reference #: Insurance Company: GAYATHRI GALLARDOfav.or.it - Expected CoPay: CoPay Card Available: Foundation Assistance Needed: Which Pharmacy is filling the prescription (Not needed for infusion/clinic administered): [place] [address] Pharmacy Notified: Yes Patient Notified: Yes Instructed pharmacy to notify patient when script is ready to warehouse order picker/ship. [employer] Telephone Encounter - Rj Salinas - 06/17/2020 3:15 PM CST Images from the original note were not included. Central Prior Authorization Team PA Initiation Medication: Omeprazole Insurance Company: GAYATHRI GALLARDOfav.or.it - Pharmacy Filling the Rx: [place] [address] Filling Pharmacy Filling Pharmacy Fax: Start Date: 06/17/2020 [employer] Telephone Encounter - Charlotte Mark CMA - 06/17/2020 11:02 AM CST Prior Authorization Retail Medication Request Medication/Dose: Omeprazole DR 20mg capsules ICD code (if different than what is on RX): Previously Tried and Failed: Rationale: Insurance requires a prior authorization for more than 90 capsules in 365 days. Insurance Name: Insurance ID: Pharmacy Information (if different than what is on RX) Name: GAYATHRI [employer]CTOR [employer] documented in this encounter Plan of Treatment Not on filedocumented as of this encounter Visit Diagnoses Not on filedocumented in this encounter Additional Health Concerns Assessment Noted Time PHQ-9 Depression Total Score: 5 03/16/2020 7:09 AM CDT documented as of this encounter Care Teams Solution Strategist Relationship Specialty Start Date End Date Noreen Hills PCP - General Nurse Practitioner 01/09/19 12/12/21 SEAN Haley APPLICATION ARCHITECT [address] [facility] [place] [address] Noreen Hills Assigned PCP 06/16/18 SEAN Haley APPLICATION ARCHITECT [address] [facility] [place] [address] Kalyan Galvan Personal Advocate & 08/08/19 Liaison (PAL) Lashae Trevino Pharmacist Pharmacist 10/14/19 12/01/20 [facility] 14[address] [facility] [place] [phone] Eduardo Sharma MD Assigned Sleep Provider 04/02/20 05/07/21 6363 [address] GARCIA [facility] [address] [place] [address] Rios Monteiro MD Assigned Musculoskeletal 04/02/20 08/24/20 [address] [facility] Provider ROSHAN [address] [place] [id number] documented as of this encounter
--- OUTSIDE RECORDS SUMMARY | 2022-02-02 09:09 | XMS_ITS | Encounter Summary ---
:1965 Author Organization [place] Address [address] [place] [address] Care Team Providers Name Role Phone Noreen Hills APRN, CNP Unavailable [phone] Noreen Hills APRN, CNP Primary Care Provider [phone] Kalyan Galvan Unavailable Unavailable Lashae Trevino [facility] Unavailable [phone] Reason for Visit Reason Onset Date Comments Forms 01/05/2020 Encounter Details Date Type Department Care Team Description 01/05/2020 Telephone [facility] Noreen Hills, Forms Pino [facility] INTAKE COORDINATOR 3304 [facility] 3305 [facility] [address] [place] [address] [place] [address] [phone] Social History Tobacco Use Types Packs/Day Years [...] How often do you attend religious or oriental orthodox Patient refused 08/08/2019 services? [...] later is ready for pick at the motel front desk clerk. Pt will supervisor opening and picking the letter tomorrow. I told her theclinic [...] a ligament. ?? PLAN: follow up with fisheries specialist. I ordered an fisheries specialist referral. Continue wearing the right thumb [...] How would you like the form/letter returned: Section Chief Patient Notified form requests are processed in 3-5 business days:Yes Okay to leave a detailed message? Yes Home number on file [phone] (home) Please reach out to pt when ready Kiya Gleason on 01/05/2020 at 10:25 AM documented in this encounter Plan of Treatment Not on filedocumented as of this encounter Visit Diagnoses Not on filedocumented in this encounter Additional Health Concerns Assessment Noted Time PHQ-9 Depression Total Score: 9 08/09/2019 7:03 AM ECONOMICS INSTRUCTOR documented as of this encounter Care Teams Pharmacology Associate Relationship Specialty Start Date End Date Noreen Hills PCP - General Nurse Practitioner 01/09/19 12/12/21 SEAN Haley PHARMACY INTAKE COORDINATOR [address] [facility] [place] [phone] Noreen Hilsl Assigned PCP 06/16/18 SEAN Haley PHARMACY INTAKE COORDINATOR [address] [facility] [place] [address] Kalyan Galvan Personal Advocate & 08/08/19 Liaison (PAL) Lashae Trevino Pharmacist Pharmacist 10/14/19 12/01/20 CLAUDIA Beck [address] [place] [address] documented as of this encounter
--- OUTSIDE RECORDS SUMMARY | 2022-02-02 09:09 | XMS_ITS | Encounter Summary ---
:1965 Author Organization [place] Address [address] [place] [address] Care Team Providers Name Role Phone Noreen Hills APRN HAND BINDER CUTTER Unavailable [phone] Noreen Hills APRN HAND BINDER CUTTER Primary Care Provider [phone] Kalyan Galvan Unavailable Unavailable Lashae Trevino [facility] Unavailable [phone] Encounter Details Date Type Department Care [...] How often do you attend orthodox or caodaism Patient refused 08/08/2019 services? Do [...] Depression Total Score: 9 08/09/2019 7:03 AM PUBLIC HOUSING INTERVIEWER documented as of this encounter Care Teams Rfid Technician Relationship Specialty Start Date End Date Noreen Hills PCP - General Nurse Practitioner 01/09/19 12/12/21 SEAN Haley HAND BINDER CUTTER [address] [facility] [address] [place], [place] [address] Noreen Hills PCP 06/16/18 SEAN Haley HAND BINDER CUTTER [address] [facility] [place] [address] Kalyan Galvan Personal Advocate & 08/08/19 Liaison (PAL) Lashae Trevino Pharmacist Pharmacist 10/14/19 12/01/20 [facility] [address] [facility] [address] [place], [place] [address] documented as of this encounter
--- OUTSIDE RECORDS SUMMARY | 2022-02-02 09:09 | XMS_ITS | Encounter Summary ---
:1965 Author Organization [place] Address [facility] [facility] [place] [address] Care Team Providers Name Role Phone Pankaj Woods APRN, CNP Unavailable [phone] Pankaj Woods APRN, CNP Primary Care Provider [phone] Kalyan Galvan Unavailable Unavailable Lashae Trevino [facility] Unavailable [phone] Reason for Referral Diagnostic Imaging CT Scan (Routine) - Closed Specialty Diagnoses / Procedures Referred By Contact Refer red To Contact Diagnoses Chest pain, unspecified type Pankaj Woods, Procedures CT Angiogram coronary artery [facility] [address] [facility] [place] [address] Referral ID Status Reason Start Date Expiration Date Visits Requ ested Visits Authorized [id number] Closed 03/16/2020 03/16/2021 1 1 Encounter Details Date Type Department Care Team Description 03/16/2020 E-Consult [facility] Heart Ian Hamilton Chest pain, unspecified Clinic Moncho Cade MD type (Primary Dx) [address] [facility] [address] [place] [address] Social History Tobacco Use [...] How often do you attend congregation or mormonism Patient refused 08/08/2019 services? Do [...] documented as of this encounter Care Teams Nurses Educator Relationship Specialty Start Date End Date Pankaj Woods PCP - General Nurse Practitioner 01/09/19 12/12/21 SEAN Haley CALL BOX WIRER [address] [facility] [place] [phone] Pankaj Woods Assigned PCP 06/16/18 SEAN Haley CALL BOX WIRER [address] [facility] [place] [phone] Kalyan Galvan Personal Advocate & 08/08/19 Liaison (PAL) Lashae Trevino Pharmacist Pharmacist 10/14/19 12/01/20 Kiran, [facility] [address] [facility] [place] [phone] documented as of this encounter
--- OUTSIDE RECORDS SUMMARY | 2022-02-02 09:09 | XMS_ITS | Encounter Summary ---
:1965 Author Organization [place] Address [address] [place] [address] Care Team Providers Name Role Phone Noreen Hills APRN VOLTMETER OPERATOR Unavailable [phone] Noreen Hills APRN, CNP Primary Care Provider [phone] Kalyan Galvan Unavailable Unavailable Lashae Trevino [facility] Unavailable [phone] Reason for Visit Reason Comments Diabetes Encounter Details Date Type Department Care Team Description 03/16/2020 Virtual Visit [facility] Noreen Hills Migraine without status migrainosus, not intractable, unspecified migraine type (Primary Dx); Clinic [place] Haley APRN Snoring; [address] VOLTMETER OPERATOR Persistent insomnia; [address] [facility] Chest pain, unspecified type ; [address] [facility] [address] Type 2 diabetes mellitus with complicati on, without long-term current use of insulin (H) [place] [address] [place] [address] Social History Tobacco Use [...] How often do you attend druze or synagogue Patient refused 08/08/2019 services? Do [...] this encounter Progress Notes Noreen Hills, SEAN VOLTMETER OPERATOR - 03/16/2020 7:15 AM CDT Megan Choi [...] would you like to be contacted at? [phone] How would you like to obtain your [...] tingling in feet. 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 Has explored sitting down at work but [...] follow-ups on file. Noreen Hills APRN CNP [facility] Phone call duration: 35 minutes documented [...] documented as of this encounter Care Teams Produce Inspector Relationship Specialty Start Date End Date Noreen Hills PCP - General Nurse Practitioner 01/09/19 12/12/21 SEAN Haley VOLTMETER OPERATOR [address] [facility] [place] [address] Noreen Hills Assigned PCP 06/16/18 SEAN Haley VOLTMETER OPERATOR [address] [facility] [place] [id number] Kalyan Galvan Personal Advocate & 08/08/19 Liaison (PAL) Lashae Trevino Pharmacist Pharmacist 10/14/19 12/01/20 Kiran [facility] [address] [place] [address] documented as of this encounter
--- OUTSIDE RECORDS SUMMARY | 2022-02-02 09:09 | XMS_ITS | Encounter Summary ---
:1965 Author Organization [place] Address [address] [place] [address] Care Team Providers Name Role Phone Noreen Hills APRN BUSINESS INTELLIGENCE REPORTING ANALYST Unavailable [phone] Noreen Hills APRN BUSINESS INTELLIGENCE REPORTING ANALYST Primary Care Provider [phone] Kalyan Galvan Unavailable Unavailable Lashae Trevino [facility] Unavailable [phone] Encounter Details Date Type Department Care [...] often do you attend oriental orthodox or hinduism Patient refused 08/08/2019 services? Do [...] Depression Total Score: 9 08/09/2019 7:03 AM MAIL HANDLERS SUPERVISOR documented as of this encounter Care Teams Communications Billing Analyst Relationship Specialty Start Date End Date Noreen Hills PCP - General Nurse Practitioner 01/09/19 12/12/21 SEAN Haley BUSINESS INTELLIGENCE REPORTING ANALYST [address] [facility] [address] [place], [place] [address] Noreen Hills PCP 06/16/18 SEAN Haley BUSINESS INTELLIGENCE REPORTING ANALYST [address] [facility] [address] Kalyan Galvan Personal Advocate & 08/08/19 Liaison (PAL) Lashae Trevino Pharmacist Pharmacist 10/14/19 12/01/[facility] [address] [facility] [address] [place], [place] [address] documented as of this encounter
--- OUTSIDE RECORDS SUMMARY | 2022-02-02 09:09 | XMS_ITS | Encounter Summary ---
:1965 Author Organization [place] Address [address] [place] [address] Care Team Providers Name Role Phone Noreen Hills APRN EMPLOYMENT APPEALS EXAMINER Unavailable [phone] Noreen Hills APRN EMPLOYMENT APPEALS EXAMINER Primary Care Provider [phone] Kalyan Galvan Unavailable Unavailable Lashae Trevino [facility] Unavailable [phone] Reason for Referral Consultation (Routine) - Closed Specialty Diagnoses / Procedures Referred By Contact Refer red To Contact Diagnoses Pain of right thumb Ramin Romero MD 2019 [facility] 06 11 [place], [place] [phone] Referral ID Status Reason Start Date Expiration Date Visits Requ ested Visits Authorized [id number] Closed 01/02/2020 01/01/2021 1 1 iagnostic Imaging XR (Routine) - Closed Specialty Diagnoses / Procedures Referred By Contact Refer red To Contact Diagnoses Pain of right thumb Ramin Romero MD Procedures XR Finger Right G/E 2 Views 2019 [facility] [place], [place] [phone] Referral ID Status Reason Start Date Expiration Date Visits Requ ested Visits Authorized [id number] Closed 01/02/2020 01/01/2021 1 1 Reason for Visit Reason Comments Urgent Care Thumb Discomfort thumb pain that started 2 we eks ago- popping in and out of joint- thumb brace isnt helping Encounter Details Date Type Department Care Team Description 01/02[facility] of right [facility] [place] 2019 E (Primary Dx) [address] [address] [place] [address] Social History Tobacco Use Types Packs/Day [...] How often do you attend adventist or mandaeism Patient refused 08/08/2019 services? Do you belong to any clubs or organizations such as No 08/08/2019 adventist groups, unions, fraternal or athletic groups, or [...] thumb for now. follow up with an duplication specialist for further evaluation and treatment. documented [...] ??? fluticasone (FLONASE) 50 MCG/ACT nasal spray [place] 1-2 sprays into both nostrils daily 16 [...] right thumb a lot while working at [employer]. ROS: CONSTITUTIONAL:NEGATIVE for fever INTEGUMENTARY/SKIN: negative [...] at a ligament. PLAN: follow up with duplication specialist. I ordered an duplication specialist referral. Continue wearing the right thumb splint Place ice onto the right thumb Rest the right thumb as much as possible. Ramin Romero MD documented in this encounter Plan of Treatment Scheduled Referrals Name Type Priority Associated Diagnoses Order S chedule Orthopedic & Spine Referral Routine Pain of right thumb Ex pected: 01/09/2020 Driller Brake Lining Referral (Approxim ate), Expires: 2019 documented as [...] Depression Total Score: 9 08/09/2019 7:03 AM MANAGEMENT ADVISOR documented as of this encounter Care Teams Healthcare Management Relationship Specialty Start Date End Date Noreen Hills PCP - General Nurse Practitioner 01/09/19 12/12/21 SEAN Haley EMPLOYMENT APPEALS EXAMINER [address] [facility] [place] [phone] Noreen Hills Assigned PCP 06/16/18 SEAN Haley EMPLOYMENT APPEALS EXAMINER [address] [facility] [place] [address] Kalyan Galvan Personal Advocate & 08/08/19 Liaison (PAL) Lashae Trevino Pharmacist Pharmacist 10/14/19 12/01/20 Kiran, [facility] [address] [facility] [place] [id number] documented as of this encounter
--- OUTSIDE RECORDS SUMMARY | 2022-02-02 09:09 | XMS_ITS | Encounter Summary ---
:1965 Author Organization [place] Address [address] [place] [address] Care Team Providers Name Role Phone Noreen Hills APRN WIPER BLENDER Unavailable [phone] Noreen Hills APRN WIPER BLENDER Primary Care Provider [phone] Kalyan Galvan Unavailable Unavailable Lashae Trevino [facility] Unavailable [phone] Encounter Details Date Type Department Care Team Description 01/13/2020 Telephone [facility] Noreen Hills Eagan APRN WIPER BLENDER [address] [facility] 3305 [facility] [address] [place] [address] [place] [address] [phone] Social History Tobacco Use Types Packs/Day Years [...] How often do you attend anglican or oriental orthodox Patient refused 08/08/2019 services? [...] AM CDT Let pt know she can nut picker anytime. Edel Mosqueda MA Telephone Encounter - Noreen Hills APRN CNP - 01/13/2020 9:56 AM CDT Please call pt to schedule lab visit to nut picker FIT documented in this encounter Plan of Treatment Not on filedocumented as of this encounter Visit Diagnoses Diagnosis Special screening for malignant neoplasm s, colon - Primary documented in this encounter Additional Health Concerns Assessment Noted Time PHQ-9 Depression Total Score: 9 08/09/2019 7:03 AM SUPERVISOR DATA PROCESSING documented as of this encounter Care Teams Can Coverer Relationship Specialty Start Date End Date Noreen Hills PCP - General Nurse Practitioner 01/09/19 12/12/21 SEAN Haley CNP [address] [facility] [place] [address] Noreen Hills Assigned PCP 06/16/18 SEAN Haley CNP [address] [facility] [place] [address] Kalyan Galvan Personal Advocate & 08/08/19 Liaison (PAL) Lashae Trevino Pharmacist Pharmacist 10/14/19 [facility]/01/[facility] [address] [place] [address] [place] [id number] documented as of this encounter
--- OUTSIDE RECORDS SUMMARY | 2022-02-02 09:09 | XMS_ITS | Encounter Summary ---
:1965 Author Organization [place] Address [address] [place] [address] Care Team Providers Name Role Phone Noreen Hills APRN ADVERTISING COORDINATOR Unavailable [phone] Noreen Hills APRN ADVERTISING COORDINATOR Primary Care Provider [phone] Kalyan Galvan Unavailable Unavailable Lashae Trevino [facility] Unavailable [phone] Encounter Details Date Type Department Care [...] How often do you attend denominational or jain Patient refused 08/08/2019 services? Do [...] Depression Total Score: 9 08/09/2019 7:03 AM WILDLIFE BIOLOGY TECHNICIAN documented as of this encounter Care Teams Casting Molder Relationship Specialty Start Date End Date Noreen Hills PCP - General Nurse Practitioner 01/09/19 12/12/21 SEAN Haley ADVERTISING COORDINATOR [address] [facility] [address] [place], [place] [address] JeanaNoreen girard PCP 06/16/18 SEAN Haley ADVERTISING COORDINATOR [address] [facility] [address] [place], [place] [address] Kalyan Galvan Personal Advocate & 08/08/19 Liaison (PAL) Lashae Trevino Pharmacist Pharmacist 10/14/19 12/01/20 [facility] [address] [facility] [address] [place], [place] [address] documented as of this encounter
--- OUTSIDE RECORDS SUMMARY | 2022-02-02 09:09 | XMS_ITS | Encounter Summary ---
:1965 Author Organization [place] Address [address] [place] [address] Care Team Providers Name Role Phone Noreen Hills APRN INFORMATION COORDINATOR Unavailable [phone] Noreen Hills APRN INFORMATION COORDINATOR Primary Care Provider [phone] Kalyan Galvan Unavailable Unavailable Lashae Trevino [facility] Unavailable [phone] Encounter Details Date Type Department Care Team Description 01/12/2020 Orders Only [facility] care maintenance [place] [facility] 3[address] [facility] [address] [place] [address] Social History [...] How often do you attend moravian or roman catholic Patient refused 08/08/2019 services? [...] Time Signature Occult Blood Negative NEG^Negati 01/18/2020 [facility] FIT ve 4:19 PM CDT [facility] Specimen Anatomical Collection Method Collection Time Receive d Time (Source) Location / / Volume Laterality Stool specimen 01/12/2020 8:00 AM 020 1:16 (specimen) CDT PM CDT Noreen Hills APRN INFORMATION COORDINATOR LAB - STOOLS ORDERABLES Performing Organization Address City/State/ZIP Code Phon e Number [facility] [address] [place] [address] [facility] documented in this encounter Visit Diagnoses Diagnosis Health care maintenance Unspecified general medical examination documented in this encounter Additional Health Concerns Assessment Noted Time PHQ-9 Depression Total Score: 9 08/09/2019 7:03 AM LINECASTING MACHINE KEYBOARD OPERATOR documented as of this encounter Care Teams Window Glazier Helper Relationship Specialty Start Date End Date Noreen Hills PCP - General Nurse Practitioner 01/09/19 12/12/21 SEAN Haley INFORMATION COORDINATOR [address] [facility] [place] [address] Noreen Hills Assigned PCP 06/16/18 SEAN Haley INFORMATION COORDINATOR [address] [facility] [place] [phone] Kalyan Galvan Personal Advocate & 08/08/19 Liaison (PAL) Lashae Trevino Pharmacist Pharmacist 10/14/19 12/01/20 [facility] [address] [facility] [place] [phone] documented as of this encounter
--- OUTSIDE RECORDS SUMMARY | 2022-02-02 09:09 | XMS_ITS | Encounter Summary ---
:1965 Author Organization [place] Address [address] [place] [address] Care Team Providers Name Role Phone Noreen Hills APRN COMMUNITY NURSE Unavailable [phone] Noreen Hills APRN COMMUNITY NURSE Primary Care Provider [phone] Kalyan Galvan Unavailable Unavailable Lashae Trevino [facility] Unavailable [phone] Eduardo Sharma MD Unavailable Rios Monteiro MD Unavailable Reason for Visit Reason Onset Date Comments Refill Request 06/17/2020 Encounter Details Date Type Department Care Team Description 06/16/2020 Refill [facility] Noreen Hills istine, Refill Request [place] [facility] COMMUNITY NURSE [address] [place] [address] [place] [address] [phone] Social History Tobacco Use Types Packs/Day Years [...] How often do you attend holiness or rastafari Patient refused 08/08/2019 services? Do you belong to any clubs or organizations such as No 08/08/2019 holiness groups, [employer], fraUbiterra or athletic groups, or school groups? How [...] Keyona Mantilla RN - 06/16/2020 11:13 AM BOILER/CHILLER OPERATOR Prescription approved per [facility], [facility] or [facility] refill protocol. Keyona Palacios - Registered Nurse [facility] Acute and Diagnostic Services ER/CHILLER OPERATOR Telephone Encounter - Christy Pelayo RN - 06/16/2020 11:05 AM BOILER/CHILLER OPERATOR Patient needing refill of medication per call. Christy Pelayo RN Flex ER/CHILLER OPERATOR documented in this encounter Plan of Treatment Not on filedocumented as of this encounter Visit Diagnoses Diagnosis Gastroesophageal reflux disease without esophagitis Esophageal reflux documented in this encounter Additional Health Concerns Assessment Noted Time PHQ-9 Depression Total Score: 5 03/16/2020 7:09 AM CDT documented as of this encounter Care Teams Cna Relationship Specialty Start Date End Date Noreen Hills PCP - General Nurse Practitioner 01/09/19 12/12/21 SEAN Haley COMMUNITY NURSE [address] [facility] [place] [address] Noreen Hills Assigned PCP 06/16/18 SEAN Haley COMMUNITY NURSE [address] [facility] [place] [address] Kalyan Galvan Personal Advocate & 08/08/19 Liaison (PAL) Lashae Trevino Pharmacist Pharmacist 10/14/19 12/01/20 [facility] [place] 1440 [facility] [place] [address] Eduardo Sharma MD Assigned Sleep Provider 04/02/20 05/07/21 [address] [place] [id number] Rios Monteiro MD Assigned Musculoskeletal 04/02/20 08/24/20 [address] [facility] Provider [address] [place] [id number] documented as of this encounter
--- OUTSIDE RECORDS SUMMARY | 2022-02-02 09:09 | XMS_ITS | Encounter Summary ---
:1965 Author Organization [place] Address [address] [place] [address] Care Team Providers Name Role Phone Noreen Hills APRN SOLE LAYER HAND Unavailable [phone] Noreen Hills APRN SOLE LAYER HAND Primary Care Provider [phone] Kalyan Galvan Unavailable Unavailable Lashae Trevino [facility] Unavailable [phone] Encounter Details Date Type Department Care [...] How often do you attend anabaptist or orthodoxy Patient refused 08/08/2019 services? Do [...] documented as of this encounter Care Teams Sample Sewer Relationship Specialty Start Date End Date Noreen Hills PCP - General Nurse Practitioner 01/09/19 12/12/21 SEAN Haley SOLE LAYER HAND [address] [facility] [address] [place], [place] [address] Noreen Hills PCP 06/16/18 SEAN Haley SOLE LAYER HAND [address] [place] [address] Kalyan Galvan Personal Advocate & 08/08/19 Liaison (PAL) Lashae Trevino Pharmacist Pharmacist 10/14/19 [facility]/01[facility] [address] [facility] [place] [address] documented as of this encounter
--- OUTSIDE RECORDS SUMMARY | 2022-02-02 09:09 | XMS_ITS | Encounter Summary ---
:1965 Author Organization [place] Address [address] [place] [address] Care Team Providers Name Role Phone Noreen Hills APRN AQUATICS DIRECTOR Unavailable [phone] Noreen Hills APRN AQUATICS DIRECTOR Primary Care Provider [phone] Kalyan Galvan Unavailable Unavailable Lashae Trevino [facility] Unavailable [phone] Encounter Details Date Type Department Care [...] How often do you attend pentecostal or latter day Patient refused 08/08/2019 services? [...] Depression Total Score: 9 08/09/2019 7:03 AM PATHOLOGY LABORATORY AIDE documented as of this encounter Care Teams Orthopedics Teacher Relationship Specialty Start Date End Date Noreen Hills PCP - General Nurse Practitioner 01/09/19 12/12/21 SEAN Haley AQUATICS DIRECTOR [address] [facility] [address] [place], [place] [address] Noreen Hills PCP 06/16/18 SEAN Haley AQUATICS DIRECTOR [address] [place] [address] Kalyan Galvan Personal Advocate & 08/08/19 Liaison (PAL) Lashae Trevino Pharmacist Pharmacist 10/14/19 12/01/20 [facility] [address] [facility] [address] [place], [place] [address] documented as of this encounter
--- OUTSIDE RECORDS SUMMARY | 2022-02-02 09:09 | XMS_ITS | Encounter Summary ---
:1965 Author Organization [place] Address [address] [place] [address] Care Team Providers Name Role Phone Pankaj Woods APRN SCULPTURE INSTRUCTOR Unavailable [phone] Pankaj Woods APRN SCULPTURE INSTRUCTOR Primary Care Provider [phone] Kalyan Galvan Unavailable Unavailable Lashae Trevino [facility] Unavailable [phone] Reason for Visit (Routine) - Closed Specialty Diagnoses / Procedures Referred By Contact Refer red To Contact Cardiology Diagnoses NO BB Rh Cardiac Services Procedures ECHO STRESS TEST [address] [place], [place] [address] Phone: Referral ID Status Reason Start Date Expiration Date Visits Requ ested Visits Authorized [id number] Closed 12/16/2019 12/15/2020 1 1 Encounter Details Date Type Department Care Team Description 12/16/2019 Hospital Encounter [facility] Kera Tripp, Chest pain, unspecified type; [facility] Family history of MA (myocardial infarct ion) [facility] EMERGENCY [address] [facility] [employer] [place], [place] [address] [address] [place], [place] [phone] [address] Social History Tobacco Use Types Packs/Day [...] How often do you attend gnosticist or anabaptist Patient refused 08/08/2019 services? Do you belong to any clubs or organizations such as No 08/08/2019 gnosticist groups, [employer], fraSmartRx or athletic groups, or school groups? How [...] goal < 7% (H) fluticasone (FLONASE) 50 [place] 1-2 sprays 16 g 11 08/08 MCG/ACT [...] procedure are in CONTRAST Family history of MA the res ults (myocardial section. infarction) documented in this encounter Results ECHO EXERCISE STRESS TEST WITH CONTRAST (12/16/2019 9:43 AM CDT) Anatomical Region Laterality Modality Echocardiography Specimen (Source) Anatomical Collection Method Collection Time Re ceived Time Location / / Volume Laterality 12/16/2019 9:06 AM CDT Narrative 12/16/2019 12:34 PM CDT [id number]^QASIM^KERA^[facility] Echocardiography Laboratory [address] [place] [address] Name: MEGAN CHOI : 1965 Study Date: 12/16/2019 09:06 AM Age: 54 yrs Gender: Female Patient Location: [facility] Reason For Study: Chest pain, unspecifie d type, Family history of MA (myocardial i History: Diabetes, Family Hx, Hyperlipid [...] note might be different from the original. [id number]^QASIM^KERA^[facility] Echocardiography Laboratory [address] [place] [address] Name: MEGAN CHOI : 1965 Study Date: 12/16/2019 09:06 AM Age: 54 yrs Gender: Female Patient Location: [facility] Reason For Study: Chest pain, unspecifie d type, Family history of MA (myocardial i History: Diabetes, Family Hx, Hyperlipid [...] Chest pain, unspecified type Family history of MA (myocardial infarct ion) Family history of ischemic [...] On Sun12/16/19 at 0945, For 1 dose, [facility] [id number] sodium chloride (PF) 0.9% PF flush 10 mL Given 12/16/2019 9:44 AM CDT 10 mLs 10 mL, Intracatheter, ONCE, On Sun12/16/19 at 0945, For 1 dose documented in this encounter Additional Health Concerns Assessment Noted Time PHQ-9 Depression Total Score: 9 08/09/2019 7:03 AM INFO ANALYST documented as of this encounter Care Teams Dive Supervisor Relationship Specialty Start Date End Date Pankaj Woods PCP - General Nurse Practitioner 01/09/19 12/12/21 SEAN Haley SCULPTURE INSTRUCTOR [address] [facility] [place] [phone] Pankaj Woods Assigned PCP 06/16/18 SEAN Haley SCULPTURE INSTRUCTOR [address] [facility] [place] [phone] Kalyan Galvan Personal Advocate & 08/08/19 Liaison (PAL) Lashae Trevino Pharmacist Pharmacist 10/14/19 12/01/20 Kiran [facility] [address] [phone] documented as of this encounter
--- OUTSIDE RECORDS SUMMARY | 2022-02-02 09:10 | XMS_ITS | Encounter Summary ---
:1965 Author Organization [place] Address [address] [place] [address] Care Team Providers Name Role Phone Noreen Hills APRN DIRECTOR DERMATOLOGY Unavailable [phone] Noreen Hills APRN, CNP Primary Care Provider [phone] Kalyan Galvan Unavailable Unavailable Lashae Trevino [facility] Unavailable [phone] Eduardo Sharma MD Unavailable Rios Monteiro MD Unavailable Marcelo Artis PA-C Unavailable [phone] Rodrigo Man PA-C Unavailable [phone] Reason for Visit Reason Onset Date Comments Refill Request 08/08/2019 DULoxetine (CYMBALTA ) 30 MG capsule Encounter Details Date Type Department Care Team Description 08/08/2019 Refill [facility] Noreen Hills Req [facility] Pino Haley APRN CNP (DULoxetine (CYMBALTA) [address] [facility] 30 MG capsule) [facility] [address] [place] [address] [place] [address] [phone] Social History Tobacco Use Types Packs/Day Years [...] How often do you attend yazidism or gnosticist Patient refused 08/08/2019 services? Do [...] this in for her. Radha Manning RN [facility] -- Triage Nurse MANAGER Telephone Encounter - Noreen Hills APRN CNP - 08/11/2019 9:41 AM ART MANAGER Please verify that she was previously taking 1 tab twice a day. If so, please switch it to 1, 60mg tab, once per day. Pls notify her of the change. MANAGER Telephone Encounter - Gayathri Mcallister RN - 08/11/2019 9:38 AM CST Please review sig for duloxetine, hydrochlorothiazide and metformin ( per review of last office visit 2000 mg daily of metformin, I am not sure about Duloxetine sig and dispense amount, Thank you) Gayathri Mcallister RN Message handled by Nurse Triage. MANAGER Telephone Encounter - Kartik Javier - 08/08/2019 5:46 PM CST Also Review Rx directions for Metformin hydrochloride 500 mg. Pharmacy is requesting clarification. MANAGER Telephone Encounter - Kartik Javier - 08/08/2019 2:39 PM CST Script Clarification: Rx has two sets of directions. Please send new Rx with the Proper Directions. Thanks. MANAGER documented in this encounter Plan of Treatment Not on filedocumented as of this encounter Visit Diagnoses Diagnosis Fibromyalgia Mylagia and myositis, unspecified documented in this encounter Additional Health Concerns Infection Onset Date Last Indicated Resolved Time Rule Out COVID-19 08/25/2020 08/25/2020 08/26/2020 3:2 3 PM CDT Assessment Noted Time PHQ-9 Depression Total Score: 9 08/09/2019 7:03 AM ART MANAGER documented as of this encounter Care Teams Fire Battalion Chief Relationship Specialty Start Date End Date Noreen Hills PCP - General Nurse Practitioner 01/09/19 12/12/21 SEAN Haley DIRECTOR DERMATOLOGY [address] [facility] [place] [address] Noreen Hills Assigned PCP 06/16/18 SEAN Haley DIRECTOR DERMATOLOGY [address] [facility] [place] [phone] Kalyan Galvan Personal Advocate & 08/08/19 Liaison (PAL) Lashae Trevino Pharmacist Pharmacist 10/14/19 12/01/[facility] [address] [facility] [place] [phone] Eduardo Sharma MD Assigned Sleep Provider 04/02/20 05/07/21 [address] [facility] [address] [place], [place] [address] Rios Monteiro MD Assigned Musculoskeletal 04/02/20 08/24/20 [id number] [employer] Provider [address] [place], [place] [address] Marcelo Artis Assigned Musculoskeletal 08/25/20 08/20/21 MIKAYLA Nuno Provider [address] [place], [place] [address] Rodrigo Man Assigned Surgical 08/25/2011/27 MIKAYLA Lacy Provider [address] [facility] [address] [place] [id number] documented as of this encounter
--- OUTSIDE RECORDS SUMMARY | 2022-02-02 09:10 | XMS_ITS | Encounter Summary ---
:1965 Author Organization [place] Address [address] [place] [address] Care Team Providers Name Role Phone Noreen Hills APRN ESCORT PATIENTS Unavailable [phone] Noreen Hills APRN ESCORT PATIENTS Primary Care Provider [phone] Kalyan Galvan Unavailable Unavailable Lashae Trevino [facility] Unavailable [phone] Reason for Visit Diagnostic Imaging MRI (Routine) - Closed Specialty Diagnoses / Procedures Referred By Contact Refer red To Contact Radiology. Diagnoses Pain of left lower leg Rodrigo Man Mri Procedures MR Lumbar Spine w/o Contrast MR Lumbar Spine w/o & w Contrast MIKAYLA Lacy [address] [facility] [place] [id number] [place] [id number] Referral ID Status Reason Start Date Expiration Date Visits Requ ested Visits Authorized [id number] Closed 10/07/2019 10/06/2020 1 1 Encounter Details Date Type Department Care Team Description 10/21/2019 Hospital Encounter [facility] Alejo Donovan, Pain of left lower [facility] Rodrigo Lacy leg [address] [place] [address] [address] [place] [address] [place] [address] Social History Tobacco Use Types Packs/Day Years [...] How often do you attend gnosticism or zoroastrian Patient refused 08/08/2019 services? Do [...] goal < 7% (H) fluticasone (FLONASE) [address] [place] 1-2 sprays 16 g 11 08/08 MCG/ACT [...] Depression Total Score: 9 08/09/2019 7:03 AM OYSTER SHIPPER documented as of this encounter Care Teams Director Of Regulatory Affairs Relationship Specialty Start Date End Date Noreen Hills PCP - General Nurse Practitioner 01/09/19 12/12/21 SEAN Haley ESCORT PATIENTS [address] [facility] [place] [phone] Noreen Hills Assigned PCP 06/16/18 SEAN Haley ESCORT PATIENTS [address] [facility] [place] [phone] Kalyan Galvan Personal Advocate & 08/08/19 Liaison (PAL) Lashae Trevino Pharmacist Pharmacist 10/14/19 12/01/20 Kiran [facility] [address] [facility] [place] [id number] documented as of this encounter
--- OUTSIDE RECORDS SUMMARY | 2022-02-02 09:10 | XMS_ITS | Encounter Summary ---
:1965 Author Organization [place] Address [address] [place] [address] Care Team Providers Name Role Phone Noreen Hills APRN SHOP BLACKSMITH Unavailable [phone] Noreen Hills APRN SHOP BLACKSMITH Primary Care Provider [phone] Kalyan Galvan Unavailable Unavailable Lashae Trevino [facility] Unavailable [phone] Reason for Visit Reason Onset Date Comments Follow Up 11/11/2019 er follow up Encounter Details Date Type Department Care Team Description 11/11/2019 Virtual Visit [facility] Kleber Lima MD Hyperlipidemia LDL goal <100 (Primary Dx ); Clinic [address] Type 2 diabetes mellitus wit h complication, without long-term current use of insulin (H) [address] [facility] [address] [place] [address] [address] [place] [address] (Work) [phone] Social History Tobacco Use Types Packs/Day Years [...] How often do you attend religious or jew Patient refused 08/08/2019 services? Do [...] would you like to be contacted at? [phone] How would you like to obtain your AVS? MyChart Subjective Megan Choi is a 54 year old female who presents via phone visit today for the following health issues: HPI ED/UC Followup: Facility: [facility] Emergency Department Date of visit: 11/06/2019 [...] disease YES- multiple family member have had PA Tobacco use: no ?? Precipitating factors: Worse with exertion: YES- felt funny at work, chest started to hurt at work Worse with deep breaths : YES Related to food: no ?? Alleviating factors: Ibuprofen. Therapies Tried and outcome: ibuprofen Patient Active Problem List Diagnosis ??? Migraine headache ??? GERD (gastroesophageal reflux disease) ??? Family history of PA (myocardial infarction) ??? Persistent insomnia ??? Type [...] ??? Cardiovascular Mother PA age 72 ??? Diabetes Mother Type II ??? Hypertension Mother ??? Lipids Mother ??? Arthritis Mother OA ??? Kidney Disease Mother 70 ??? Cardiovascular Father PA early 40s, subsequent bipass ??? Hypertension Father [...] ??? fluticasone (FLONASE) 50 MCG/ACT nasal spray [place] 1-2 sprays into both nostrils daily 16 [...] in mood or affect Objective Reported vitals: [facility] 10/30/2011 healthy, alert and no distress [...] Depression Total Score: 9 08/09/2019 7:03 AM COMMERCIAL DRIVER'S LICENSE DRIVER documented as of this encounter Care Teams Home Health Aide Relationship Specialty Start Date End Date Noreen Hills PCP - General Nurse Practitioner 01/09/19 12/12/21 SEAN Haley SHOP BLACKSMITH [address] [facility] [place] [address] Noreen Hills Assigned PCP 06/16/18 SEAN Haley SHOP BLACKSMITH [address] [facility] [place] [address] Kalyan Galvan Personal Advocate & 08/08/19 Liaison (PAL) Lashae Trevino Pharmacist Pharmacist 10/14/19 12/01/20 [facility] [address] [place] [address] [place] [id number] documented as of this encounter
--- OUTSIDE RECORDS SUMMARY | 2022-02-02 09:10 | XMS_ITS | Encounter Summary ---
:1965 Author Organization [place] Address [address] [place] [address] Care Team Providers Name Role Phone Noreen Hills APRN GOLD CHARMER Unavailable [phone] Noreen Hills APRN GOLD CHARMER Primary Care Provider [phone] Kalyan Galvan Unavailable Unavailable Lashae Trevino [facility] Unavailable [phone] Encounter Details Date Type Department Care [...] How often do you attend sikh or congregation Patient refused 08/08/2019 services? Do [...] Depression Total Score: 9 08/09/2019 7:03 AM PROCESS CONSULTANT documented as of this encounter Care Teams Operations Research Director Relationship Specialty Start Date End Date Noreen Hills PCP - General Nurse Practitioner 01/09/19 12/12/21 SEAN Haley GOLD CHARMER [address] [facility] [address] [place], [place] [address] Noreen Hills PCP 06/16/18 SEAN Haley GOLD CHARMER [address] [place] [address] Kalyan Galvan Personal Advocate & 08/08/19 Liaison (PAL) Lashae Trevino Pharmacist Pharmacist 10/14/19 12/01/20 [facility] [address] [facility] [address] [place], [place] [address] documented as of this encounter
--- OUTSIDE RECORDS SUMMARY | 2022-02-02 09:10 | XMS_ITS | Encounter Summary ---
:1965 Author Organization [place] Address [address] [place] [address] Care Team Providers Name Role Phone Noreen Hills APRN MAGNETIC RESONANCE IMAGING DIRECTOR Unavailable [phone] Noreen Hills APRN, CNP Primary Care Provider [phone] Kalyan Galvan Unavailable Unavailable Encounter Details Date [...] How often do you attend jainism or episcopal Patient refused 08/08/2019 services? Do [...] Depression Total Score: 9 08/09/2019 7:03 AM REHEAT FURNACE OPERATOR documented as of this encounter Care Teams Washer Off Relationship Specialty Start Date End Date Noreen Hills PCP - General Nurse Practitioner 01/09/19 12/12/21 SEAN Haley MAGNETIC RESONANCE IMAGING DIRECTOR [address] [facility] [place] [address] Noreen Hills Assigned PCP 06/16/18 SEAN Haley MAGNETIC RESONANCE IMAGING DIRECTOR [address] [facility] [place] [address] Kalyan Galvan Personal Advocate & 08/08/19 Liaison (PAL) documented as of this encounter
--- OUTSIDE RECORDS SUMMARY | 2022-02-02 09:10 | XMS_ITS | Encounter Summary ---
:1965 Author Organization [place] Address [address] [place] [address] Care Team Providers Name Role Phone Noreen Hills APRN WATERMELON HARVESTING SUPERVISOR Unavailable [phone] Noreen Hills APRN, CNP Primary Care Provider [phone] Kalyan Galvan Unavailable Unavailable Reason for Visit Reason Onset Date Comments Referral 10/02/2019 MTM Encounter Details Date Type Department Care Team Description 10/02/2019 Telephone [facility] Noreen Hills, Referral (MTM) Pino ESTRADA WATERMELON HARVESTING SUPERVISOR [address] [facility] [address] [facility] [address] [place] [address] [place] [address] [phone] Social History Tobacco Use Types Packs/Day Years [...] How often do you attend lutheran or oriental orthodox Patient refused 08/08/2019 services? [...] 10/02/2019 1:46 PM CDT MTM referral from: [facility] visit (referral by provider) MTM referral outreach attempt #2 on October 02, 2019 at 1:47 PM Outcome: Patient not reachable after several attempts, will route to [facility] Pharmacist/Provider as an FYI. Thank you for the referral. See LISSA Pickens Banbury Mixer Operator documented in this encounter Plan of Treatment Not on filedocumented as of this encounter Visit Diagnoses Not on filedocumented in this encounter Additional Health Concerns Assessment Noted Time PHQ-9 Depression Total Score: 9 08/09/2019 7:03 AM INCIDENT RESPONSE CONSULTANT documented as of this encounter Care Teams Short Order Cook Relationship Specialty Start Date End Date Noreen Hills PCP - General Nurse Practitioner 01/09/19 12/12/21 SEAN Haley WATERMELON HARVESTING SUPERVISOR [address] [facility] [place] [address] Noreen Hills Assigned PCP 06/16/18 SEAN Haley WATERMELON HARVESTING SUPERVISOR [address] [facility] [place] [address] Kalyan Galvan Personal Advocate & 08/08/19 Liaison (PAL) documented as of this encounter
--- OUTSIDE RECORDS SUMMARY | 2022-02-02 09:10 | XMS_ITS | Encounter Summary ---
:1965 Author Organization [place] Address [address] [place] [address] Care Team Providers Name Role Phone Noreen Hills APRN TEXTILE TECHNOLOGIST Unavailable [phone] Noreen Hills APRN TEXTILE TECHNOLOGIST Primary Care Provider [phone] Kalyan Galvan Unavailable Unavailable Lashae Trevino [facility] Unavailable [phone] Reason for Visit Reason Comments Medication Refill Encounter Details Date Type Department Care Team Description 12/09/2019 Refill [facility] Noreen Hills, Medication Refill Pion ESTRADA TEXTILE TECHNOLOGIST [address] [facility] [address] [place] [address] [address] [place] [address] [place] [address] [phone] Social History Tobacco Use Types Packs/Day Years [...] How often do you attend sikhism or pentecostal Patient refused 08/08/2019 services? Do [...] Depression Total Score: 9 08/09/2019 7:03 AM FOUNDRY SUPERINTENDANT documented as of this encounter Care Teams System Configuration Specialist Relationship Specialty Start Date End Date Noreen Hills PCP - General Nurse Practitioner 01/09/19 12/12/21 SEAN Haley TEXTILE TECHNOLOGIST [address] [facility] [place] [address] Noreen Hills Assigned PCP 06/16/18 SEAN Haley TEXTILE TECHNOLOGIST [address] [facility] [place] [phone] Kalyan Galvan Personal Advocate & 08/08/19 Liaison (PAL) Lashae Trevino Pharmacist Pharmacist 10/14/19 12/01/20 Kiran [facility] [address] [facility] [place] [address] documented as of this encounter
--- OUTSIDE RECORDS SUMMARY | 2022-02-02 09:10 | XMS_ITS | Encounter Summary ---
:1965 Author Organization [place] Address [address] [place] [address] Care Team Providers Name Role Phone Noreen Hills APRN BIOPHARMACEUTICAL REP Unavailable [phone] Noreen Hills APRN BIOPHARMACEUTICAL REP Primary Care Provider [phone] Kalyan Galvan Unavailable Unavailable Lashae Trevino [facility] Unavailable [phone] Encounter Details Date Type Department Care [...] How often do you attend anabaptism or pentecostalism Patient refused 08/08/2019 services? Do [...] Depression Total Score: 9 08/09/2019 7:03 AM SPINNERET PERSON documented as of this encounter Care Teams Entry Level Truck Driver Relationship Specialty Start Date End Date Noreen Hills PCP - General Nurse Practitioner 01/09/19 12/12/21 SEAN Haley BIOPHARMACEUTICAL REP [address] [facility] [address] [place], [place] [address] Noreen Hills PCP 06/16/18 SEAN Haley BIOPHARMACEUTICAL REP [address] [place] [address] Kalyan Galvan Personal Advocate & 08/08/19 Liaison (PAL) Lashae Trevino Pharmacist Pharmacist 10/14/19 12/01/[address] [facility] [address] [facility] [address] [place], [place] [address] documented as of this encounter
--- OUTSIDE RECORDS SUMMARY | 2022-02-02 09:10 | XMS_ITS | Encounter Summary ---
:1965 Author Organization [facility] Address [address] [place] [address] Care Team Providers Name Role Phone Noreen Hills APRN, CNP Unavailable [phone] Noreen Hills APRN, CNP Primary Care Provider [phone] Kalyan Galvan Unavailable Unavailable Reason for Referral Consultation (Routine) - Closed Specialty Diagnoses / Procedures Referred By Contact Refer red To Contact Diagnoses Snoring Noreen Hills [facility] SEAN [address] [place] [phone] [place] [id number] Referral ID Status Reason Start Date Expiration Date Visits Requ ested Visits Authorized [id number] Closed 08/08/2019 08/07/2020 1 1 HOUSE SORTER Reason for Visit Reason Comments Physical Encounter Details Date Type Department Care Team Description [facility] Routine ge neral medical examination at a health care facility (Primary Dx); Clinic Pino Haley APRN Moderate episode of recurren t major depressive disorder (H); [address] [facility] Persistent insomnia; [address] [facility]; [address] [facility] Vitamin D deficiency; [place] [phone] [place] [address] Migraine without status migrainosus, not intractable, unspecified migraine type; [phone] Morbid obesity (H); (Work) Snoring; [phone] Type 2 diabetes mellitus with complication, without [...] How often do you attend sabianism or zoroastrian Patient refused 08/08/2019 services? Do [...] Comments Blood Pressure 104/62 08/08/2019 8:59 AM WAREHOUSE SORTER Pulse 84 08/08/2019 8:59 AM WAREHOUSE SORTER Temperature 36.5 ??C (97.7 ??F) 08/08/2019 8:59 AM WAREHOUSE SORTER Respiratory Rate 16 08/08/2019 8:59 AM WAREHOUSE SORTER Oxygen Saturation 97% 08/08/2019 8:59 AM WAREHOUSE SORTER Inhaled Oxygen Concentration - - Weight 88 kg (193 lb 14.4 oz) 08/08/2019 8:59 AM WAREHOUSE SORTER Height 157.5 cm (5' 2) 08/08/2019 8:59 AM WAREHOUSE SORTER Body Mass Index 35.46 08/08/2019 8:59 AM WAREHOUSE SORTER documented in this encounter Patient Instructions Patient [...] eye doctor every 1 to 2 years. HOUSE SORTER documented in this encounter Progress Notes Noreen [...] NEG Negative Negative Test canceled - Lab order runner error(A) HPV 18 DNA NEG Negative Negative Test canceled - Lab order runner error(A) OTHER HR HPV NEG Negative Negative Test canceled - Lab order runner error(A) Reviewed and updated as needed this [...] - SLEEP EVALUATION & MANAGEMENT REFERRAL - [facility] [phone] (Age 18 and up); Future 9. Type [...] - fluticasone (FLONASE) 50 MCG/ACT nasal spray; [place] 1-2 sprays into both nostrils daily Dispense: [...] Lung CA Screening Noreen Hills APRN CNP [facility] Christi Hanna MA - 08/08/2019 9:15 AM CST Forwarded to SB# RACHEL kennedy. This is regarding Ambien-verified with provider Chrsiti Panda CMA Lashae Dorsey [facility] - 08/08/2019 9:15 AM CST Considerations: 1.Common [...] Trevino, PharmD Medication Therapy Management Pharmacist Pager#: [phone] HOUSE SORTER documented in this encounter Plan of Treatment Scheduled Referrals Name Type Priority Associated Diagnoses Order S chedule SLEEP EVALUATION & Referral Routine Snoring 1 Occurre nces starting MANAGEMENT REFERRAL - 2019 until ADULT -[facility] [phone] (Age 18 and up) documented as of this encounter Procedures Procedure Name Priority Date/Time Associated Diagnosis Comme nts VITAMIN D DEFICIENCY Routine 08/08/2019 10:17 Vitamin D defici ency Results for this SCREENING AM WAREHOUSE SORTER procedure are i n the results section. ALBUMIN RANDOM URINE Routine 08/08/2019 10:17 Routine general Results for this QUANTITATIVE AM WAREHOUSE SORTER medical examination procedur e are in at a health care the results facility section. LIPID REFLEX TO Routine 08/08/2019 10:17 Routine general Resul ts for this DIRECT LDL PANEL AM WAREHOUSE SORTER medical examination proc edure are in at a [facility] care the results facility section. HEMOGLOBIN A1C Routine 08/08/2019 10:17 Routine general Result s for this AM WAREHOUSE SORTER medical examination procedur e are in at a health care the results facility section. BASIC METABOLIC PANEL Routine 08/08/2019 10:17 Routine general Results for this AM WAREHOUSE SORTER medical examination procedur e are in at a health care the results facility section. documented in this encounter Results Vitamin D Deficiency (08/08/2019 10:17 AM WAREHOUSE SORTER) P athologist Signature Vitamin D 49 20 - 75 08/08/2019 [facility] Deficiency ug/L 4:03 PM WAREHOUSE SORTER [facility] Comment: Season, race, dietary intake, and treatm ent affect the concentration of 26-rpqzphk-Sbjwsjy D. Values may decreas e during winter [...] Blood specimen 08/08/2019 10:17 0 (specimen) AM WAREHOUSE SORTER 10:18 AM WAREHOUSE SORTER Noreen Hills APRN, CNP LAB - BLOOD ORDERABLES Performing Organization Address City/State/ZIP Code Phon e Number [facility] [address] [place] [address] [facility] (ABNORMAL) HEMOGLOBIN A1C (08/08/2019 10:17 AM WAREHOUSE SORTER) athologist Signature Hemoglobin A1C 6.2 (H) 0 - 5.6 % 08/08/2019 [place] 10:[address] [facility] Comment: Normal <5.7% Prediabetes 5.7-6.4% ??Diab etes 6.5% or higher - adopted from ADA consensus guidelines. Specimen Anatomical Collection Method Collection Time Receive d Time (Source) Location / / Volume Laterality Blood specimen 08/08/2019 10:17 0 (specimen) AM WAREHOUSE SORTER 10:18 AM WAREHOUSE SORTER Noreen Hills APRN, CNP LAB - BLOOD ORDERABLES Performing Organization Address City/State/ZIP Code Phon e Number [facility] [address] [place] [address] Albumin Random Urine Quantitative with Creat Ratio (08/08/2019 10:17 AM WAREHOUSE SORTER) athologist Signature Creatinine 154 mg/dL 08/09/2019 [place] Urine 1:[address] [facility] Albumin Urine 11 mg/L 08/09/2019 [place] mg/L 1:[address] [facility] Albumin Urine 7.14 0 - 25 08/09/2019 [place] mg/g Cr mg/g Cr 1:[address] [facility] Specimen Anatomical Collection Method Collection Time Receive d Time (Source) Location / / Volume Laterality Urine specimen 08/08/2019 10:17 0 (specimen) AM WAREHOUSE SORTER 10:18 AM WAREHOUSE SORTER Noreen Hills APRN, CNP LAB - URINE ORDERABLES Performing Organization Address City/State/ZIP Code Phon e Number [facility] [address] [place] [address] (ABNORMAL) Lipid panel reflex to direct LDL Fasting (08/08/2019 10:17 AM WAREHOUSE SORTER) P athologist Signature Cholesterol 180 <200 mg/dL 08/08/2019 [place] 7:47 PM [facility] Triglycerides 153 (H) <150 mg/dL 08/08/2019 [place] 7:47 PM [facility] Comment: Borderline high: ??150-199 mg/dl High: ? 200-499 mg/dl Very high: ? >499 mg/dl HDL Cholesterol 46 (L) >49 mg/dL 08/08/2019 7:47 PM [facility] LDL Cholesterol 103 (H) <100 mg/dL 08/08/2019 7:47 PM [facility] Comment: Above desirable: ??100-129 mg/dl Borderline High: ??130-159 mg/dL High: ? 160-189 mg/dL Very high: ? >189 mg/dl Non HDL Cholesterol 134 (H) <130 mg/dL 08/08/2019 7:[address] [facility] Comment: Above Desirable: ??130-159 mg/dl Borderline high: ??160-189 mg/dl High: ? 190-219 mg/dl Very high: ? >219 mg/dl Specimen Anatomical Collection Method Collection Time Receive d Time (Source) Location / / Volume Laterality Blood specimen 08/08/2019 10:17 0 (specimen) AM WAREHOUSE SORTER 10:18 AM WAREHOUSE SORTER Noreen Hills MATH AND SCIENCE DIVISION CHAIR BACON STRINGER LAB - BLOOD ORDERABLES Performing Organization Address City/State/ZIP Code Phon e Number M [facility] [address] [place] [address] [facility] [address] [place] [address], U [phone] (ABNORMAL) BASIC METABOLIC PANEL (08/08/2019 10:17 AM WAREHOUSE SORTER) [facility] Method Time Signature Sodium 143 133 - 144 08/08/2019 [place] mmol/L 7:27 PM [facility] Potassium 4.3 3.4 - 5.3 08/08/2019 [place] mmol/L 7:27 PM [facility] Chloride 112 (H) 94 - 109 08/08/2019 [place] mmol/L 7:27 PM [facility] Carbon Dioxide 26 20 - 32 08/08/2019 [place] mmol/L 7:47 PM [facility] Anion Gap 5 3 - 14 08/08/2019 [place] mmol/L 7:47 PM [facility] Glucose 120 (H) 70 - 99 08/08/2019 [place] mg/dL 7:47 PM [facility] Urea Nitrogen 16 7 - 30 08/08/2019 [place] mg/dL 7:47 PM [facility] Creatinine 0.72 0.52 - 08/08/2019 [place] 1.04 mg/dL 7:47 PM [facility] GFR Estimate >90 >60 08/08/2019 [place] mL/min/{1. 7:47 PM [facility] 73_m2} [facility]OSP[facility] Comment: Non GFR Calc Starting 05/28/2018, serum creatinine ba sed estimated GFR (eGFR) will be calculated using the Chronic Kidney Dise [facility] Epidemiology Collaboration (CKD-EPI) equation. GFR Estimate If >90 >60 mL/min/{1.73_m2} 08/08/2019 7: 47 PM [facility] Comment: GFR Calc Starting 05/28/2018, serum creatinine ba sed estimated GFR (eGFR) will be calculated using the Chronic Kidney Dise [facility] Epidemiology Collaboration (CKD-EPI) equation. Calcium 9.5 8.5 - 10.1 mg/dL 08/08/2019 7:47 PM [facility] Specimen Anatomical Collection Method Collection Time Receive d Time (Source) Location / / Volume Laterality Blood specimen 08/08/2019 10:17 0 (specimen) AM WAREHOUSE SORTER 10:18 AM WAREHOUSE SORTER Noreen Hills APRN BACON STRINGER LAB - BLOOD ORDERABLES Performing Organization Address City/State/ZIP Code Phon e Number M [facility] [address] [place] [address] [facility] [address] [place], [place] [address] [phone] [place] [address] [address] [place], [place] [address], U [phone] documented in this encounter Visit Diagnoses Diagnosis [...] Total Score: 9 08/09/2019 7:03 AM WAREHOUSE SORTER documented as of this encounter Care Teams Print Shop Chief Clerk Relationship Specialty Start Date End Date Noreen Hills PCP - General Nurse Practitioner 01/09/19 12/12/21 SEAN Haley BACON STRINGER [address] [facility] [place] [address] Noreen Hills Assigned PCP 06/16/18 SEAN Haley BACON STRINGER [address] [facility] [place] [address] Kalyan Galvan Personal Advocate & 08/08/19 Liaison (PAL) documented as of this encounter
--- OUTSIDE RECORDS SUMMARY | 2022-02-02 09:10 | XMS_ITS | Encounter Summary ---
:1965 Author Organization [facility] Address [address] [place] [address] Care Team Providers Name Role Phone Noreen Hills APRN CRATE LINER Unavailable [phone] Noreen Hills APRN CRATE LINER Primary Care Provider [phone] Kalyan Galvan Unavailable Unavailable Lashae Trevino [facility] Unavailable [phone] Encounter Details Date Type Department Care [...] How often do you attend baptist or yazdanism Patient refused 08/08/2019 services? Do [...] Depression Total Score: 9 08/09/2019 7:03 AM TRUCKER HAND documented as of this encounter Care Teams Linderman Machine Operator Relationship Specialty Start Date End Date Noreen Hills PCP - General Nurse Practitioner 01/09/19 12/12/21 SEAN Haley CRATE LINER [address] [place], [place] [address] Noreen Hills PCP 06/16/18 SEAN Haley CRATE LINER [address] [place] [address] Kalyan Galvan Personal Advocate & 08/08/19 Liaison (PAL) Lashae Trevino Pharmacist Pharmacist 10/14/19 [facility]/01/[facility] [address] [facility] [facility] [address] [place], [place] [address] documented as of this encounter
--- OUTSIDE RECORDS SUMMARY | 2022-02-02 09:10 | XMS_ITS | Encounter Summary ---
:1965 Author Organization [facility] Address [address] [place] [address] Care Team Providers Name Role Phone Noreen Hills APRN HAY SORTER Unavailable [phone] Noreen Hills APRN, CNP Primary Care Provider [phone] Kalyan Galvan Unavailable Unavailable Encounter Details Date [...] How often do you attend quaker or hinduism Patient refused 08/08/2019 services? Do [...] Depression Total Score: 9 08/09/2019 7:03 AM PROBATION AGENT documented as of this encounter Care Teams Product Finisher Relationship Specialty Start Date End Date Noreen Hills PCP - General Nurse Practitioner 01/09/19 12/12/21 SEAN Haley HAY SORTER [address] [facility] [place] [address] Noreen Hills Assigned PCP 06/16/18 SEAN Haley HAY SORTER [address] [facility] [place] [address] Kalyan Galvan Personal Advocate & 08/08/19 Liaison (PAL) documented as of this encounter
--- OUTSIDE RECORDS SUMMARY | 2022-02-02 09:10 | XMS_ITS | Encounter Summary ---
:1965 Author Organization [facility] Address [address] [place] [address] Care Team Providers Name Role Phone Noreen Hills APRN HOG CUTTER Unavailable [phone] Noreen Hills APRN HOG CUTTER Primary Care Provider [phone] Kalyan Galvan Unavailable Unavailable Lashae Trevino [facility] Unavailable [phone] Encounter Details Date Type Department Care [...] How often do you attend muslim or sikh Patient refused 08/08/2019 services? Do [...] Depression Total Score: 9 08/09/2019 7:03 AM DIRECTOR OF FIELD SALES documented as of this encounter Care Teams Soil Fertility Extension Specialist Relationship Specialty Start Date End Date Noreen Hills PCP - General Nurse Practitioner 01/09/19 12/12/21 SEAN Haley HOG CUTTER [address] [place], [place] [address] Noreen Hills Assigned PCP 06/16/18 SEAN Haley HOG CUTTER [address] [facility] [facility] [facility] [address] [place], [place] [address] Kalyan Galvan Personal Advocate & 08/08/19 Liaison (PAL) Lashae Trevino Pharmacist Pharmacist 10/14/19 12/01/20 [facility] [address] [facility] [address] [address] [place], [place] [address] documented as of this encounter
--- OUTSIDE RECORDS SUMMARY | 2022-02-02 09:10 | XMS_ITS | Encounter Summary ---
:1965 Author Organization [facility] Address [address] [place] [address] Care Team Providers Name Role Phone Noreen Hills APRN SUPERVISOR ESTIMATOR AND DRAFTER Unavailable [phone] Noreen Hills APRN SUPERVISOR ESTIMATOR AND DRAFTER Primary Care Provider [phone] Kalyan Galvan Unavailable Unavailable Lashae Trevino [facility] Unavailable [phone] Reason for Visit Reason Onset Date Comments Recheck Medication 10/28/2019 Cyclobenzaprine Encounter Details Date Type Department Care Team Description 10/28/[address] [facility] Noreen Hills Dry mouth (Primary Dx); Clinic Pino Haley APRN Pain of left lower leg; [address] [facility] Migraine without status migrainosus, not intractable, unspecified migraine type; [address] [facility] Type 2 diabetes mellitus wit h complication, without long-term current use of insulin (H) [address] [facility] [place] [phone] [place] [id number] Social History Tobacco Use Types Packs/Day Years [...] How often do you attend sabianism or taoism Patient refused 08/08/2019 services? Do you belong to any clubs or organizations such as No 08/08/2019 sabianism groups, [employer], [email or web address] or athletic groups, or school groups? How [...] this encounter Progress Notes Noreen Hills, SEAN SUPERVISOR ESTIMATOR AND DRAFTER - 10/28/2019 11:30 AM CDT Megan Choi [...] would you like to be contacted at? [phone] How would you like to obtain your [...] called her but they were cut off. (G41.726) Migraine without status migrainosus, not intractable, unspecified [...] 6.1 (H) 0 - 5.6 % 01/13/2020 [place] 9:27 AM CDT [facility] Comment: Normal <5.7% Prediabetes 5.7-6.4% ??Diab etes 6.5% or higher - adopted from ADA consensus guidelines. Specimen Anatomical Collection Method Collection Time Receive d Time (Source) Location / / Volume Laterality Blood specimen 01/13/2020 8:55 AM 020 8:56 (specimen) CDT AM CDT Noreen Hills APRN, CNP LAB - BLOOD ORDERABLES Performing Organization Address City/State/ZIP Code Phon e Number [address] [place] [address] documented in this encounter Visit Diagnoses Diagnosis [...] Depression Total Score: 9 08/09/2019 7:03 AM CEMENT FINISHER HELPER documented as of this encounter Care Teams Music Therapist [employer] Relationship Specialty Start Date End Date Noreen Hills PCP - General Nurse Practitioner 01/09/19 12/12/21 SEAN Haley CNP [address] [facility] [place] [address] Noreen Hills Assigned PCP 06/16/18 SEAN Haley CNP [address] [facility] [place] [address] Kalyan Galvan Personal Advocate & 08/08/19 Liaison (PAL) Lashae Trevino Pharmacist Pharmacist 10/14/19 12/01/20 [facility] [address] [facility] [place] [id number] documented as of this encounter
--- OUTSIDE RECORDS SUMMARY | 2022-02-02 09:10 | XMS_ITS | Encounter Summary ---
:1965 Author Organization [facility] Address [address] [place] [address] Care Team Providers Name Role Phone Pankaj Hills APRN SHEEP AND WHEAT FARMER Unavailable [phone] Pankaj Hills APRN SHEEP AND WHEAT FARMER Primary Care Provider [phone] Kalyan Galvan Unavailable Unavailable Lashae Trevino [facility] Unavailable [phone] Reason for Visit Reason Comments Chest Pain Encounter Details Date Type Department Care Team Description 11/06/2019 Emergency [facility] Kera Bernard MD Chest pain, unspecified type; [facility] Emergency Dep t EMERGENCY PHYSICIANS Family history of [place] (myocar dial infarction) [address] [place], [place] [address] [facility] [address] [place], [place] [id number] (Wo rk) Social History Tobacco Use Types [...] often do you attend jehovah's witness or yazidi Patient refused 08/08/2019 services? Do [...] through Care Everywhere. Chest Pain, Uncertain Cause ([place])documented in this encounter Medications at Time of [...] goal < 7% (H) fluticasone (FLONASE) 50 Levan 1-2 sprays 16 g 11 08/08 MCG/ACT [...] T&A Left peritoneal tendon repair Family History: VT age 71, type 2 DM, HTN, lipids, osteoarthritis, kidney disease: mother [place] s/p CABG, HTN, diabetes, lipids: father Lipids, [...] Chest pain Time: 18:19:30 Rate 70 bpm. NV interval 174. QRS duration 96. QT/QTc 394/425. [...] GERD (gastroesophageal reflux disease); Family history of VT (myocardial infarction); Persistent insomnia; Type 2 diabetes [...] Echo Stress Echocardiogram 2. Family history of VT (myocardial infarction) Z82.49 Echo Stress Echocardiogram Disposition: Discharged home Kallie Garcia 11/06/2019 [facility] EMERGENCY DEPARTMENT Scribe Disclosure: I, Kallie [...] AM CDT Narrative 12/16/2019 12:34 PM CDT [id number]^[id number]^KERA^[facility] Echocardiography Laboratory [address] [place] [address] Name: MEGAN WONG : 1965 Study Date: 12/16/2019 09:06 AM Age: 54 yrs Gender: Female Patient Location: [facility] Reason For Study: Chest pain, unspecifie d type, Family history of VT (myocardial i History: Diabetes, Family Hx, Hyperlipid [...] note might be different from the original. [id number] [facility] [id number]^QASIM^KERA^[facility] Echocardiography Laboratory [address] [place] [address] Name: MEGAN WONG : 1965 Study Date: 12/16/2019 09:06 AM Age: 54 yrs Gender: Female Patient Location: [facility] Reason For Study: Chest pain, unspecifie d type, Family history of VT (myocardial i History: Diabetes, Family Hx, Hyperlipid [...] CDT EXAM: XR CHEST 2 VW LOCATION: [facility] DATE/TIME: 11/06/2019 7:58 PM INDICATION: Chest pain COMPARISON: None. Procedure Note Zachary Pardo MD - 11/06/2019Formatt ing of this note might be different from the original. EXAM: XR CHEST 2 VW LOCATION: [facility] DATE/TIME: 11/06/2019 7:58 PM INDICATION: Chest pain COMPARISON: None. IMPRESSION: Negative chest. Postsurgical change in the lower cervical spine. Kera Bernard MD IMG DIAGNOSTIC IMAGING ORDER ILDEFONSO (ABNORMAL) Lipase (11/06/2019 6:28 PM CDT) athologist Signature Lipase 66 (L) 73 - 393 11/06/2019 [facility] U/L 7:36 PM CDT HOSPITAL Specimen Anatomical Collection Method Collection Time Receive d Time (Source) Location / / Volume Laterality 11/06/2019 6:28 PM 0 6:35 CDT PM CDT Kera Bernard MD LAB - BLOOD ORDERABLES Performing Organization Address [facility] Phon e [place] [phone] [place] [phone] D dimer quantitative (11/06/2019 6:28 PM CDT) athologist Signature D Dimer 0.5 0.0 - 0.50 11/06/2019 [facility] ug/ml FEU 7:40 PM CDT HOSPITAL [...] LAB - BLOOD ORDERABLES Performing Organization Address [facility] Phon e Number [facility] [address] [place] [address] [facility] [address] [place], [place] [address] [phone] (ABNORMAL) Hepatic panel (11/06/2019 6:28 PM CDT) Analysis Performed At Patho logist Time Signature Bilirubin Direct <0.1 0.0 - 0.2 11/06/2019 [place] mg/dL 7:45 PM T [facility] Bilirubin Total 0.3 0.2 - 1.3 11/06/2019 [place] mg/dL 7:45 PM T [facility] Albumin 3.7 3.4 - 5.0 11/06/2019 [place] g/dL 7:45 PM [facility] Protein Total 7.8 6.8 - 8.8 11/06/2019 [place] g/dL 7:45 PM [facility] Alkaline 157 (H) 40 - 150 11/06/2019 [place] Phosphatase U/L 7:45 PM [facility] ALT 36 0 - 50 U/L 11/06/2019 [place] 7:45 PM [facility] AST 21 0 - 45 U/L 11/06/2019 [place] 7:45 PM [facility] Specimen Anatomical Collection Method Collection Time Receive d Time (Source) Location / / Volume Laterality 11/06/2019 6:28 PM 0 6:35 CDT PM CDT Kera Bernard MD LAB - BLOOD ORDERABLES Performing Organization Address City/State/ZIP Code Phon e Number M [facility] [address] [place] [address] [phone] [facility] [address] [place] [address], U [phone] Troponin I (now) (11/06/2019 6:28 PM CDT) P athologist Signature Troponin I ES <0.015 0.000 - 11/06/2019 [place] 0.045 ug/L 7:00 PM T [facility] Comment: The 99th percentile for upper reference [...] Address City/State/ZIP Code Phon e Number M [place] [address] [address] [place], [place] [address] [facility] [address] [place], [place] [address] [phone] (ABNORMAL) Basic metabolic panel (BMP) (11/06/2019 6:28 PM CDT) athologist Signature Sodium 140 133 - 144 11/06/2019 [place] mmol/L 6:50 PM [facility] Potassium 3.5 3.4 - 5.3 11/06/2019 [place] mmol/L 6:50 PM [facility] Chloride 107 94 - 109 11/06/2019 [place] mmol/L 6:50 PM [facility] Carbon Dioxide 28 20 - 32 11/06/2019 [place] mmol/L 6:56 PM [facility] Anion Gap 5 3 - 14 11/06/2019 [place] mmol/L 6:56 PM [facility] Glucose 129 (H) 70 - 99 11/06/2019 [place] mg/dL 6:56 PM [facility] Urea Nitrogen 17 7 - 30 11/06/2019 [place] mg/dL 6:56 PM [facility] Creatinine 0.82 0.52 - 11/06/2019 [place] 1.04 mg/dL 6:56 PM [facility] GFR Estimate 80 >60 11/06/2019 [place] mL/min/{1. 6:56 PM [facility] 73_m2} HOSPITAL Comment: Non GFR Calc Starting 05/28/2018, serum creatinine ba sed estimated GFR (eGFR) will be calculated using the Chronic Kidney Dise ase Epidemiology Collaboration (CKD-EPI) equation. GFR Estimate If >90 >60 mL/min/{1.73_m2} 11/06/2019 6: 56 PM [facility] Comment: GFR Calc Starting 05/28/2018, serum creatinine ba sed estimated GFR (eGFR) will be calculated using the Chronic Kidney Dise ase Epidemiology Collaboration (CKD-EPI) equation. Calcium 9.1 8.5 - 10.1 mg/dL 11/06/2019 6:56 PM T [facility] Specimen Anatomical Collection Method Collection Time Receive d Time (Source) Location / / Volume Laterality Blood specimen 11/06/2019 6:28 PM 020 6:35 (specimen) CDT PM CDT Kera Bernard MD LAB - BLOOD ORDERABLES Performing Organization Address City/State/ZIP Code Phon e Number M [place] [id number] [place] [address] [facility] [address] [place] [address], [facility] [phone] [address], [facility] CBC + differential (11/06/2019 6:28 PM CDT) [facility] gist Method Time Signature WBC 7.2 4.0 - 11/06/2019 [facility] 11.0 6:41 PM [facility] 10e9/L [facility] RBC Count 4.83 3.8 - 5.2 11/06/2019 [facility] 10e12/L 6:41 PM [facility] Hemoglobin 14.8 11.7 - 11/06/2019 [facility] 15.7 g/dL 6:41 PM [facility] Hematocrit 45.7 35.0 - 11/06/2019 [facility] 47.0 % 6:41 PM [facility] MCV 95 78 - 100 11/06/2019 [facility] fl 6:41 PM [facility] MCH 30.6 26.5 - 11/06/2019 [facility] 33.0 pg 6:41 PM [facility] MCHC 32.4 31.5 - 11/06/2019 [facility] 36.5 g/dL 6:41 PM [facility] RDW 12.6 10.0 - 11/06/2019 [facility] 15.0 % 6:41 PM [facility] Platelet Count 259 150 - 450 11/06/2019 [facility] 10e9/L 6:41 PM [facility] Diff Method Automated 11/06/2019 [facility] Method 6:41 PM [facility] % Neutrophils 42.4 % 11/06/2019 [facility] 6:41 PM [facility] % Lymphocytes 45.5 % 11/06/2019 [facility] 6:41 PM [facility] % Monocytes 9.2 % 11/06/2019 [facility] 6:41 PM [facility] % Eosinophils 1.7 % 11/06/2019 [facility] 6:41 PM [facility] % Basophils 1.1 % 11/06/2019 [facility] 6:41 PM [facility] % Immature 0.1 % 11/06/2019 [facility] Granulocytes 6:41 PM [facility] Nucleated RBCs 0 0 /100 11/06/2019 [facility] 6:41 PM [facility] Absolute 3.0 1.6 - 8.3 11/06/2019 [facility] Neutrophil 10e9/L 6:41 PM [facility] Absolute 3.3 0.8 - 5.3 11/06/2019 [facility] Lymphocytes 10e9/L 6:41 PM [facility] Absolute 0.7 0.0 - 1.3 11/06/2019 [facility] Monocytes 10e9/L 6:41 PM [facility] Absolute 0.1 0.0 - 0.7 11/06/2019 [facility] Eosinophils 10e9/L 6:41 PM [facility] Absolute 0.1 0.0 - 0.2 11/06/2019 [facility] Basophils 10e9/L 6:41 PM [facility] Abs Immature 0.0 0 - 0.4 11/06/2019 [facility] Granulocytes 10e9/L 6:41 PM [facility] Absolute 0.0 11/06/2019 [facility] Nucleated RBC 6:41 PM [facility] Specimen Anatomical Collection Method Collection Time Receive d Time (Source) Location / / Volume Laterality Blood specimen 11/06/2019 6:28 PM 020 6:35 (specimen) CDT CDT Kera Bernard MD LAB - BLOOD ORDERABLES Performing Organization Address City/State/ZIP Code Phon e Number M [facility] [address] [place], [place] [address] [facility] [address] [place], [place] [address] [facility] [phone] EKG 12 lead (11/06/2019 6:19 PM CDT) [facility] gist Method Time Signature Interpretation ECG Click [...] Chest pain, unspecified type Family history of VT (myocardial infarct ion) Family history of ischemic heart disease Chest pain, unspecified type Family history of VT (myocardial infarct ion) Family history of ischemic [...] Chica Alejandro, RERE) 30 mL, Oral, ONCE, [facility] 11/06/19 at 1916, For 1 dose documented in this encounter Additional Health Concerns Assessment Noted Time PHQ-9 Depression Total Score: 9 08/09/2019 7:03 AM AGRONOMIST documented as of this encounter Care Teams Administrator Social Welfare Relationship Specialty Start Date End Date Pankaj Hills PCP - General Nurse Practitioner 01/09/19 12/12/21 SEAN Haley SHEEP AND WHEAT FARMER [address] [facility] [place] [address] Pankaj Hills Assigned PCP 06/16/18 SEAN Haley [employer]EP AND WHEAT FARMER [address] [facility] [place] [address] Kalyan Galvan Personal Advocate & 08/08/19 Liaison (PAL) Lashae Trevino Pharmacist Pharmacist 10/14/19 12/01/20 Kiran [facility] [address] [facility] [place] [address] documented as of this encounter
--- OUTSIDE RECORDS SUMMARY | 2022-02-02 09:10 | XMS_ITS | Encounter Summary ---
:1965 Author Organization [facility] Address [address] [place] [address] Care Team Providers Name Role Phone Noreen Hills APRN PRIZER HAND Unavailable [phone] Noreen Hills APRN PRIZER HAND Primary Care Provider [phone] Kalyan Galvan Unavailable Unavailable Lashae Trevino [facility] Unavailable [phone] Reason for Visit Reason Comments Medication Refill Encounter Details Date Type Department Care Team Description 12/10/2019 Refill [facility] Noreen Hills, Medication Refill Pino ESTRADA PRIZER HAND [address] [facility] [address] [place] [address] [address] [place] [address] [place] [address] [phone] Social History Tobacco Use Types Packs/Day Years [...] How often do you attend hinduism or taoism Patient refused 08/08/2019 services? Do [...] Depression Total Score: 9 08/09/2019 7:03 AM REGISTERED RESPIRATORY TECHNICIAN documented as of this encounter Care Teams Clerk Of Works Relationship Specialty Start Date End Date Noreen Hills PCP - General Nurse Practitioner 01/09/19 12/12/21 SEAN Haley PRIZER HAND [address] [facility] [place] [address] Noreen Hills Assigned PCP 06/16/18 SEAN Haley PRIZER HAND [address] [facility] [place] [phone] Kalyan Galvan Personal Advocate & 08/08/19 Liaison (PAL) Lashae Trevino Pharmacist Pharmacist 10/14/19 12/01/20 Kiran [facility] [address] [facility] [place] [address] documented as of this encounter
--- OUTSIDE RECORDS SUMMARY | 2022-02-02 09:10 | XMS_ITS | Encounter Summary ---
:1965 Author Organization [facility] Address [address] [place] [address] Care Team Providers Name Role Phone Noreen Hills APRN, CNP Unavailable [phone] Noreen Hills APRN, CNP Primary Care Provider Kalyan Galvan Unavailable Unavailable Reason for Visit Reason Onset Date Comments Pain 10/07/2019 left leg pain Consultation (Routine) - Closed Specialty Diagnoses / Procedures Referred By Contact Refer red To Contact Orthopedics and Sports Diagnoses Pain of left lower leg Noreen Hills [facility] SEAN Haley CNP [facility] [address] [place] [address]?? [facility] [address] [place] [address] [address] [place] [address] Phone: Fax: Referral ID Status Reason Start Date Expiration Date Visits Requ ested Visits Authorized [id number] Closed 09/30/2019 09/29/2020 1 1 Encounter Details Date Type Department Care Team Description 10/07/2019 Virtual Visit [facility] Noreen Hills APRN TWISTING FRAME FIXER [address] [place] [address] [address] [place] [id number] Pain of left lower [facility] Rodrigo Mna PA-C [address] [address] leg Clinic [address] [address] Social History Tobacco Use Types [...] often do you attend jehovah's witness or alevism Patient refused 08/08/2019 services? Do [...] ??? fluticasone (FLONASE) 50 MCG/ACT nasal spray, [place] 1-2 sprays into both nostrils daily, Disp: [...] Depression Total Score: 9 08/09/2019 7:03 AM DIGITAL PHOTO PRINTER documented as of this encounter Care Teams Equipment Hire Manager Relationship Specialty Start Date End Date Noreen Hills PCP - General Nurse Practitioner 01/09/19 12/12/21 SEAN Haley TWISTING FRAME FIXER [address] [facility] [place] [address] Noreen Hills Assigned PCP 06/16/18 SEAN Haley TWISTING FRAME FIXER [address] [facility] [place] [address] Kalyan Galvan Personal Advocate & 08/08/19 Liaison (PAL) documented as of this encounter
--- OUTSIDE RECORDS SUMMARY | 2022-02-02 09:10 | XMS_ITS | Encounter Summary ---
:1965 Author Organization [facility] Address [address] [place] [address] Care Team Providers Name Role Phone Noreen Hills APRN [facility] Unavailable [phone] Noreen Hills APRN [facility] Primary Care Provider [phone] Kalyan Galvan Unavailable Unavailable Lashae Trevino [facility] Unavailable [phone] Reason for Visit Reason Comments Medication Therapy Management Med Therapy Management (Routine) - Closed Specialty Diagnoses / Procedures Referred By Contact Refer red To Contact Pharmacist Diagnoses Dry mouth Noreen Hills APRN [facility] [address] [facility] [place] [address] Referral ID Status Reason Start Date Expiration Date Visits Requ ested Visits Authorized [id number] Closed 09/30/2019 09/29/2020 1 1 Encounter Details Date Type Department Care Team Description 10/14/2019 [facility] [place] Lashae Trevino Medic ation Therapy Health/Nurse Clinic Pino Beck [facility] Management Visit [address] [place] [address] [address] [place] [address] (Work) [phone] Social History Tobacco Use Types Packs/Day Years [...] How often do you attend methodist or restorationism Patient refused 08/08/2019 services? Do you belong to any clubs or organizations such as No 08/08/2019 methodist groups, unions, [email or web address] or athletic groups, or school groups? How [...] of this encounter Progress Notes Lashae Trevino, [facility] - 10/14/2019 9:30 AM CDT MTM ENCOUNTER SUBJECTIVE/OBJECTIVE: Megan Choi is a 54 year old female called for an initial visit. She was referred to me from [facility]en [facility]. Patient consented to a telehealth visit: yes Telemedicine Visit Details Type of service: Telephone visit Start Time: 9:31 AM End Time: 10:47 AM Originating Location (pt. Location): Home Distant Location (provider location): [facility] Mode of Communication: Telephone Chief Complaint: Biggest concern is dry mouth. Also wondering if any medications could be causing insomnia. Allergies/ADRs: Reviewed in [facility] Tobacco: reports that she has never smoked. She has never used smokeless tobacco. Alcohol: Less than 1 beverage / month Caffeine: was caffeine free, drinking diet caffeine pop, maybe 3 a day. Activity: works 4 days a week and on her feet 7h a day. PMH: Reviewed in [facility] Medication Adherence/Access: no issues reported Dry mouth: Teeth, tongue and mouth are very dry. Feels she can only get a few words out with gettingstuck. This is all day and makes it hard for her to work as she needs to socialize with customers ([facility]). Has had issues with this for [...] not completed yet. She has tried melatonin [id number]-[id number] but was not effective. She is not [...] for multivitamin due to difficulty of purchasing [id number] as many stores are out of stock. [...] Trevino PharmD Medication Therapy Management Pharmacist Pager#: [phone] documented in this encounter Plan of Treatment [...] Depression Total Score: 9 08/09/2019 7:03 AM RESIN FILTERER documented as of this encounter Care Teams Residential Carpenter Relationship Specialty Start Date End Date Noreen Hills PCP - General Nurse Practitioner 01/09/19 12/12/21 SEAN Haley DROP WIRE ALIGNER [address] [facility] [place] [address] Noreen Hills Assigned PCP 06/16/18 SEAN Haley DROP WIRE ALIGNER [address] [facility] [place] [phone] Kalyan Galvan Personal Advocate & 08/08/19 Liaison (PAL) Lashae Trevino Pharmacist Pharmacist 10/14/19 12/01/20 [facility] [address] [facility] [place] [phone] documented as of this encounter
--- OUTSIDE RECORDS SUMMARY | 2022-02-02 09:10 | XMS_ITS | Encounter Summary ---
:1965 Author Organization [place] Address [address] [place] [address] Care Team Providers Name Role Phone Noreen Hills APRN MONTESSORI TEACHER Unavailable [phone] Noreen Hills APRN, CNP Primary Care Provider [phone] Kalyan Galvan Unavailable Unavailable Encounter Details Date [...] How often do you attend presybeterian or protestant Patient refused 08/08/2019 services? Do [...] Depression Total Score: 9 08/09/2019 7:03 AM DISPATCH MANAGER documented as of this encounter Care Teams Tail Sawyer Relationship Specialty Start Date End Date Noreen Hills PCP - General Nurse Practitioner 01/09/19 12/12/21 SEAN Haley MONTESSORI TEACHER [address] [facility] [place] [address] Noreen Hills Assigned PCP 06/16/18 SEAN Haley MONTESSORI TEACHER [address] [facility] [place] [address] Kalyan Galvan Personal Advocate & 08/08/19 Liaison (PAL) documented as of this encounter
--- OUTSIDE RECORDS SUMMARY | 2022-02-02 09:10 | XMS_ITS | Encounter Summary ---
:1965 Author Organization [place] Address [address] [place] [address] Care Team Providers Name Role Phone Noreen Hills APRN DIRECTOR HR COMMUNICATIONS Unavailable [phone] Noreen Hills APRN DIRECTOR HR COMMUNICATIONS Primary Care Provider [phone] Kalyan Galvan Unavailable Unavailable Lashae Trevino [facility] Unavailable [phone] Reason for Referral Consultation (Routine) - Closed Specialty Diagnoses / Procedures Referred By Contact Refer red To Contact Diagnoses Chronic insomnia Eduardo Sharam MD [address] [address] Referral ID Status Reason Start Date Expiration Date Visits Requ ested Visits Authorized [id number] Closed 10/31/2019 10/30/2020 1 1 Reason for Visit Consultation (Routine) - Closed Specialty Diagnoses / Procedures Referred By Contact Refer red To Contact Diagnoses Snoring Noreen Hills [facility] REGIONAL BUSINESS DEVELOPMENT MANAGER DIRECTOR HR COMMUNICATIONS [facility] [address] [place] [address] [place] [address] Referral ID Status Reason Start Date Expiration Date Visits Requ ested Visits Authorized [id number] Closed 08/08/2019 08/07/2020 1 1 Encounter Details Date Type Department Care Team Description 10/31/2019 Virtual Visit [facility] Noreen Hills Aleyda johnsonemily, REGIONAL BUSINESS DEVELOPMENT MANAGER DIRECTOR HR COMMUNICATIONS [address] [place] [address] Snoring (Primary Dx); Sleep Centers Eduardo Goldman MD [address] [facility] [address] [place] [address] Chronic insomnia; [address] [place] MY[place] (obst ructive sleep apnea); [facility] fatigue [address] [place] [address] [...] How often do you attend yazdanism or buddhist Patient refused 08/08/2019 services? Do [...] They lamps are sold at [employer] such as [employer] or [employer]. A prescription can be written to get insurance coverage in some cases. They are also sold on [employer]. Using the light and melatonin should help [...] it is recommended that you consult an tooth polisher before using a light box. If you have a condition that makes your eyes very sensitive to light, macular degeneration, a family history of such problems, or diabetic changes to your eyes, consult an tooth polisher before using a light box. If you [...] at 10:00 AM. 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 fluticasone (FLONASE) 50 MCG/ACT nasal spray [place] 1-2 sprays into both nostrils daily 16 [...] Address next visit ??? Family history of AR (myocardial infarction) 04/13/2008 Priority: Medium At early age, father AR at age 40 Past Medical/Surgical History: Past [...] a week Gets together: Patient refused Attends buddhist service: Patient refused Active member of club or organization: No Attends meetings of clubs or organizations: Patient refused Relationship status: ??? Intimate partner violence Fear of current or ex partner: Not on file Emotionally abused: Not on file Physically abused: Not on file Forced sexual activity: Not on file Other Topics Concern ??? Parent/sibling w/ CABG, AR or angioplasty before 65F 55M? No Social History Narrative ??? Not on file Family History: Family History Problem Relation Age of Onset ??? Cardiovascular Mother AR age 72 ??? Diabetes Mother Type II ??? Hypertension Mother ??? Lipids Mother ??? Arthritis Mother OA ??? Kidney Disease Mother 70 ??? Cardiovascular Father AR early 40s, subsequent bipass ??? Hypertension Father [...] Name Type Priority Associated Diagnoses Order S [facility] SLEEP PSYCHOLOGY REFERRAL Referral Routine Chronic insomni [...] Depression Total Score: 9 08/09/2019 7:03 AM ACCOUNT INSTALLER documented as of this encounter Care Teams Retail Product Advisor Relationship Specialty Start Date End Date Noreen Hills PCP - General Nurse Practitioner 01/09/19 12/12/21 SEAN Haley DIRECTOR HR COMMUNICATIONS [address] [facility] [place] [address] Noreen Hills Assigned PCP 06/16/18 SEAN Haley DIRECTOR HR COMMUNICATIONS [address] [facility] [place] [address] Kalyan Galvan Personal Advocate & 08/08/19 Liaison (PAL) Lashae Trevino Pharmacist Pharmacist 10/14/19 12/01/20 Kiran, [facility] [address] [place], [place] [id number] documented as of this encounter
--- OUTSIDE RECORDS SUMMARY | 2022-02-02 09:10 | XMS_ITS | Encounter Summary ---
:1965 Author Organization [place] Address [address] [place] [address] Care Team Providers Name Role Phone Noreen Hills APRN BENCH EXAMINER Unavailable [phone] Noreen Hills APRN BENCH EXAMINER Primary Care Provider [phone] Kalyan Galvan Unavailable Unavailable Encounter Details Date Type Department Care Team Description 10/03/[address] [facility] Lashae Trevino Eagan [facility] [address] [place] [address] [address] [place] [address] [phone] Social History Tobacco Use Types Packs/Day Years [...] How often do you attend voodoo or denominational Patient refused 08/08/2019 services? Do [...] Miscellaneous Notes Telephone Encounter - Lashae Trevino, [facility] - 10/06/2019 3:17 PM CDT Received call back earlier today, pt request call back after 3pm today. No answer, LVM to call clinic back to schedule MTM visit, referral per PCP. Lashae Trevino, PharmD Medication Therapy Management Pharmacist Pager#: [phone] Telephone Encounter - Edel Mosqueda CMA - 10/03/2019 8:31 AM CDT LVM to call back for consent. Edel Mosqueda MA documented in this encounter Plan of Treatment Not on filedocumented as of this encounter Visit Diagnoses Not on filedocumented in this encounter Additional Health Concerns Assessment Noted Time PHQ-9 Depression Total Score: 9 08/09/2019 7:03 AM RUSSIAN TEACHER documented as of this encounter Care Teams Wholesaler Relationship Specialty Start Date End Date Noreen Hills PCP - General Nurse Practitioner 01/09/19 12/12/21 SEAN Haley BENCH EXAMINER [address] [facility] [place] [address] Noreen Hills Assigned PCP 06/16/18 SEAN Haley BENCH EXAMINER [address] [facility] [place] [address] Kalyan Galvan Personal Advocate & 08/08/19 Liaison (PAL) documented as of this encounter
--- OUTSIDE RECORDS SUMMARY | 2022-02-02 09:10 | XMS_ITS | Encounter Summary ---
:1965 Author Organization [place] Address [address] [place] [address] Care Team Providers Name Role Phone Nroeen Hills APRN BAND SAW FILER Unavailable [phone] Noreen Hills APRN BAND SAW FILER Primary Care Provider [phone] Kalyan Galvan Unavailable Unavailable Lashae Trevino [facility] Unavailable [phone] Encounter Details Date Type Department Care [...] Depression Total Score: 9 08/09/2019 7:03 AM POCKET MACHINE OPERATOR documented as of this encounter Care Teams Line Haul Driver Relationship Specialty Start Date End Date Noreen Hills PCP - General Nurse Practitioner 01/09/19 12/12/21 SEAN Haley BAND SAW FILER [address] [place], [place] [address] Noreen Hills PCP 06/16/18 SEAN Haley BAND SAW FILER [address] [place] [address] Kalyan Galvan Personal Advocate & 08/08/19 Liaison (PAL) Lashae Trevino Pharmacist Pharmacist 10/14/19 12/01/20 [facility] [address] [facility] [address] [place], [place] [address] documented as of this encounter
--- OUTSIDE RECORDS SUMMARY | 2022-02-02 09:10 | XMS_ITS | Encounter Summary ---
:1965 Author Organization [place] Address [address] [place] [address] Care Team Providers Name Role Phone Noreen Hills APRN ADVANCE SEAL DELIVERY SYSTEM MAINTAINER Unavailable [phone] Noreen Hills APRN ADVANCE SEAL DELIVERY SYSTEM MAINTAINER Primary Care Provider [phone] Kalyan Galvan Unavailable Unavailable Lashae Trevino [facility] Unavailable [phone] Reason for Visit Reason Comments Sleep Problem STM Encounter Details Date Type Department Care Team Description 12/10/2019 Documentation Only [facility] Sleep Sleep Problem (STM) Center [address], [address] [place] [address] Social History Tobacco Use Types [...] How often do you attend confucianism or jehovah's witness Patient refused 08/08/2019 services? [...] Total Score: 9 08/09/2019 7:03 AM SENIOR AGRICULTURAL ASSISTANT documented as of this encounter Care Teams Lead Software Development Engineer Relationship Specialty Start Date End Date Noreen Hills PCP - General Nurse Practitioner 01/09/19 12/12/21 SEAN Haley ADVANCE SEAL DELIVERY SYSTEM MAINTAINER [address] [facility] [place] [address] Noreen Hills Assigned PCP 06/16/18 SEAN Haley ADVANCE SEAL DELIVERY SYSTEM MAINTAINER [address] [facility] [place] [id number] Kalyan Galvan Personal Advocate & 08/08/19 Liaison (PAL) Lashae Trevino Pharmacist Pharmacist 10/14/19 12/01/20 Kiran, [facility] [address] [place] [id number] documented as of this encounter
--- OUTSIDE RECORDS SUMMARY | 2022-02-02 09:10 | XMS_ITS | Encounter Summary ---
:1965 Author Organization [place] Address [address] [place] [address] Care Team Providers Name Role Phone Noreen Hills APRN, CNP Unavailable [phone] Noreen Hills APRN, CNP Primary Care Provider [phone] Kalyan Galvan Unavailable Unavailable Reason for Referral Consultation (Routine) - Closed Specialty Diagnoses / Procedures Referred By Contact Refer red To Contact Orthopedics and Sports Diagnoses Pain of left lower leg Noreen Hills [facility] SEAN Haley [facility] [address] [place] [address]?? [place] [address] [facility] [place] [address] [address] [place] [address] Phone: Fax: Referral ID Status Reason Start Date Expiration Date Visits Requ ested Visits Authorized [id number] Closed 09/30/2019 09/29/2020 1 1 ed Therapy Management (Routine) - Closed Specialty Diagnoses / Procedures Referred By Contact Refer red To Contact Pharmacist Diagnoses Dry mouth Noreen Hills APRN [address] [place] [place] [address] Referral ID Status Reason Start Date Expiration Date Visits Requ ested Visits Authorized [id number] Closed 09/30/2019 09/29/2020 1 1 Reason for Visit Reason Onset Date Comments Weight Problem 09/30/2019 Encounter Details Date Type Department Care Team Description 09/30/[address] [facility] Noreen Hills Dry mouth (Primary Dx); Clinic [place] Haley APRN Pain of left lower leg; [address] [place] SIFTING OPERATOR Taste disorder; [address] [facility] Leg swelling; [address] [facility] Migraine without status migrainosus, not intractable, unspecified migraine type; [place] [address] [place] [address] Morbid obesity (H) [phone] Social History Tobacco Use Types Packs/Day Years [...] How often do you attend scientology or restorationism Patient refused 08/08/2019 services? Do [...] this encounter Progress Notes Noreen Hills APRN SIFTING OPERATOR - 09/30/2019 9:05 AM CDT Megan Choi [...] No red flags. - Orthopedic & Spine Tomato Paste Maker Referral; Future 3. Taste disorder Everything tastes [...] Pain of left lower leg Expected: 09/30/2019 Tomato Paste Maker Referral (Approxim ate), Expires: 2020 documented as [...] Depression Total Score: 9 08/09/2019 7:03 AM COFFEE URN ATTENDANT documented as of this encounter Care Teams Sheep Killer Relationship Specialty Start Date End Date Noreen Hills PCP - General Nurse Practitioner 01/09/19 12/12/21 SEAN Haley CNP [address] [facility] [place] [address] Noreen Hills Assigned PCP 06/16/18 SEAN Haley CNP [address] [facility] [place] [address] Kalyan Galvan Personal Advocate & 08/08/19 Liaison (PAL) documented as of this encounter
--- OUTSIDE RECORDS SUMMARY | 2022-02-02 09:10 | XMS_ITS | Encounter Summary ---
:1965 Author Organization [place] Address [address] [place] [address] Care Team Providers Name Role Phone Noreen Hills APRN BUILDING PERFORMANCE CONSULTANT Unavailable [phone] Noreen Hills APRN BUILDING PERFORMANCE CONSULTANT Primary Care Provider [phone] Kalyan Galvan Unavailable Unavailable Lashae Trveino [facility] Unavailable [phone] Reason for Visit Reason Onset Date Comments Chest Pain 11/06/2019 Encounter Details Date Type Department Care Team Description 11/06/2019 Telephone [facility] Noreen Hills istine, Chest Pain [place] E[place] BUILDING PERFORMANCE CONSULTANT [address] [facility] [address] [place] [address] [address] [place] [address] [place] [address] [phone] Social History Tobacco Use Types Packs/Day Years [...] How often do you attend taoism or adventism Patient refused 08/08/2019 services? Do [...] remedies tried: took IBP AM Requested Pharmacy: [facility] [address] [place] [address] Okay to leave a detailed message? Yes at Cell number on file: Telephone Information: documented in this encounter Plan of Treatment Not on filedocumented as of this encounter Visit Diagnoses Not on filedocumented in this encounter Additional Health Concerns Assessment Noted Time PHQ-9 Depression Total Score: 9 08/09/2019 7:03 AM MEDIA MONITOR documented as of this encounter Care Teams Database Modeler Relationship Specialty Start Date End Date Noreen Hills PCP - General Nurse Practitioner 01/09/19 12/12/21 SEAN Haley BUILDING PERFORMANCE CONSULTANT [address] [facility] [place] [id number] Noreen Hills PCP 06/16/18 SEAN Haley BUILDING PERFORMANCE CONSULTANT [address] [facility] [place] [address] Kalyan Galvan Personal Advocate & 08/08/19 Liaison (PAL) Lashae Trevino Pharmacist Pharmacist 10/14/19 12/01/20 [facility] [address] [facility] [place] [address] documented as of this encounter
--- OUTSIDE RECORDS SUMMARY | 2022-02-02 09:10 | XMS_ITS | Encounter Summary ---
:1965 Author Organization [place] Address [address] [place] [address] Care Team Providers Name Role Phone Noreen Hills APRN RES COUNSELOR Unavailable [phone] Noreen Hills APRN RES COUNSELOR Primary Care Provider [phone] Kalyan Galvan Unavailable Unavailable Lashae Trevino [facility] Unavailable [phone] Reason for Visit Reason Onset Date Comments Appointment 11/07/2019 Encounter Details Date Type Department Care Team Description 11/07/2019 Telephone [facility] Marilin Marshall NP Appointment [place] 3[address] [facility] 3305 [facility] [place] [address] [address] [place] [address] [phone] Social History Tobacco Use Types Packs/Day Years [...] Depression Total Score: 9 08/09/2019 7:03 AM ASSISTANT ASSOCIATE FULL PROFESSOR documented as of this encounter Care Teams Tool Crib Manager Relationship Specialty Start Date End Date Noreen Hills PCP - General Nurse Practitioner 01/09/19 12/12/21 SEAN Haley RES COUNSELOR [address] [facility] [place] [address] Noreen Hills Assigned PCP 06/16/18 SEAN Haley RES COUNSELOR [address] [facility] [place] [address] Kalyan Galvan Personal Advocate & 08/08/19 Liaison (PAL) Lashae Trevino Pharmacist Pharmacist 10/14/19 12/01/20 Kiran, [facility] [address] [place] [address] documented as of this encounter
--- OUTSIDE RECORDS SUMMARY | 2022-02-02 09:10 | XMS_ITS | Encounter Summary ---
:1965 Author Organization [place] Address [address] [place] [address] Care Team Providers Name Role Phone Noreen Hills APRN NATIONAL SALES REPRESENTATIVE Unavailable [phone] Noreen Hills APRN, CNP Primary Care Provider [phone] Kalyan Galvan Unavailable Unavailable Encounter Details Date [...] How often do you attend advent or mormonism Patient refused 08/08/2019 services? Do [...] Depression Total Score: 9 08/09/2019 7:03 AM DRESS MARKER documented as of this encounter Care Teams Linen Supply Load Builder Relationship Specialty Start Date End Date Noreen Hills PCP - General Nurse Practitioner 01/09/19 12/12/21 SEAN Haley NATIONAL SALES REPRESENTATIVE [address] [facility] [place] [address] Noreen Hills Assigned PCP 06/16/18 SEAN Haley NATIONAL SALES REPRESENTATIVE [address] [facility] [place] [address] Kalyan Galvan Personal Advocate & 08/08/19 Liaison (PAL) documented as of this encounter
--- OUTSIDE RECORDS SUMMARY | 2022-02-02 09:11 | XMS_ITS | Encounter Summary ---
:1965 Author Organization [place] Address [address] [place] [address] Care Team Providers Name Role Phone Noreen Hills APRN, CNP Unavailable [phone] Noreen Hills APRN, CNP Primary Care Provider [phone] Reason for Referral (Routine) - Closed Specialty Diagnoses / Procedures Referred By Contact Refer red To Contact Diagnoses Left foot pain Right foot pain Moran's neuroma of both feet Pes cavus Peroneal tendinitis of both lower legs Agatha Nieves DPM, Procedures TRIAMCINOLONE ACET INJ NOS Podiatry/Foot and Ankle Surgery [address] [place] [address] Referral ID Status Reason Start Date Expiration Date Visits Requ ested Visits Authorized [id number] Closed 01/21/2019 01/21/2020 1 1 A Physical Therapy (Routine) - Closed Specialty Diagnoses / Procedures Referred By Contact Refer red To Contact Diagnoses Left foot pain Right foot pain Moran's neuroma of both feet Pes cavus Peroneal tendinitis of both lower legs Agatha Nieves DPM, Podiatry/Foot and Ankle Surgery [address] [facility] [address] [place] [address] Referral ID Status Reason Start Date Expiration Date Visits Requ ested Visits Authorized [id number] Closed 01/21/2019 06/10/2019 30 30 iagnostic Imaging XR (Routine) - Closed Specialty Diagnoses / Procedures Referred By Contact Refer red To Contact Diagnoses Left foot pain Agatha Nieves DPM, Procedures XR Foot Left G/E 3 Views Podiatry/Foot and Ankle Surgery [id number] [place] [address] [address] [place] [address] Referral ID Status Reason Start Date Expiration Date Visits Requ ested Visits Authorized [id number] Closed 01/21/2019 01/21/2020 1 1 Reason for Visit Reason Comments Pain Encounter Details Date Type Department Care Team Description 01/21/2019 Office Visit [facility] Agatha Nieves, Left fo ot pain (Primary Dx); Clinic [place] DPNita, Podiatry/Foot Right foot pain; [address] [facility] and [facility]le Surgery Moran's neuroma of both feet; [place] [address] S[place] h[place]; [address] [address] Peroneal tendinitis of both lower legs; [phone] [place], [place] Type 2 diabet es mellitus without complication, without long-term current use of insulin (H) [address] (Wo rk) Social History Tobacco Use Types [...] How often do you attend yazidism or yazidism Patient refused 08/08/2019 services? Do you belong to any clubs or organizations such as No 08/08/2019 yazidism groups, Parkts, fraWritePath or athletic groups, or school groups? How [...] 10:30 AM CDT Thank you for choosing [facility] [facility]le [facility]! [facility] SCHEDULE SUNDAY AM - [place] SUNDAY - [place] [facility] [facility] [address] [place] [address] [place] [address] / FX [phone] / FX [phone] SUNDAY - [place] SUNDAY AM - [facility] [address] Stephanie [place] [address] [place] [address] [place] [address] / FX [phone] SUNDAY PM - [place] SCHEDULE SURGERY: [phone] [place] [address] BILLING QUESTIONS: [phone] [place] [address] AFTER HOURS: [phone] / FX [phone] APPOINTMENTS: [phone] Consumer [facility] Line (CPL) [phone] PHYSICAL THERAPY REFERRAL [facility] ([facility]) [phone] MORAN'S NEUROMA Moran's neuroma is an enlargement [...] shoe and massaging your foot DIAGNOSIS: Your drawer in stitch bonding machine will ask many questions about your signs [...] of you. Do 2 sets of 10. softlines supervisor the same position as above. While keeping [...] and getting you back on your feet. [facility] [place] has a Comprehensive Weight Management Program. This program includes counseling, education,non-surgical and surgical approaches to weight loss. If you are interested in learning more either talk to you primary care provider or call [phone]. documented in this encounter Progress Notes Agatha [...] 3 ??? fluticasone (FLONASE) 50 MCG/ACT spray, [place] 1-2 sprays into both nostrils daily, Disp: [...] INCREASE, Disp: 180 capsule, Rfl: 0 ??? NosopharmTOUCH ULTRA test strip, USE TO TEST BLOOD [...] file Gets together: Not on file Attends yazidism service: Not on file Active member of club or organization: Not on file Attends meetings of clubs or organizations: Not on file Relationship status: Not on file ??? Intimate partner violence: Fear of current or ex partner: Not on file Emotionally abused: Not on file Physically abused: Not on file Forced sexual activity: Not on file Other Topics Concern ??? Parent/sibling w/ CABG, [place] or angioplasty before 65F 55M? No Social History Narrative ??? Not on file FAMILY HISTORY: Family History Problem Relation Age of Onset ??? Cardiovascular Mother [place] age 72 ??? Diabetes Mother Type II ??? Hypertension Mother ??? Lipids Mother ??? Arthritis Mother OA ??? Kidney Disease Mother 70 ??? Cardiovascular Father [place] early 40s, subsequent bipass ??? Hypertension Father [...] insulin (H) PLAN: Reviewed patient's chart in [facility]. Reviewed and discussed causes of tendonitis. We [...] as of this encounter Care Teams Health Care Recruiter Relationship Specialty Start Date End Date Noreen Hills APRN RECLAIMER PCP - General Nurse Practitioner 01/09/19 12/12/[address] [place] [address] [place] [address] Noreen Hills APRN RECLAIMER Assigned PCP 06/16/18 3[address] [facility] [place] [address] documented as of this encounter
--- OUTSIDE RECORDS SUMMARY | 2022-02-02 09:11 | XMS_ITS | Encounter Summary ---
:1965 Author Organization [place] Address [address] [place] [address] Care Team Providers Name Role Phone Noreen Hills APRN ROTARY DRYER OPERATOR Unavailable [phone] Noreen Hills APRN ROTARY DRYER OPERATOR Primary Care Provider [phone] Reason for Visit Reason Onset Date Comments Refill Request 03/05/2019 omeprazole (PRILOSEC ) [address] capsule Encounter Details Date Type Department Care Team Description 03/05/2019 [facility] Vanda Guerrero R efill Request Clinic [place] (omeprazole (PRILOSEC) [address] [place] [address] [facility] [address] capsule) [facility] [address] [place] [address] [place] [id number] [phone] Social History Tobacco Use Types Packs/Day Years [...] How often do you attend yazidism or judaism Patient refused 08/08/2019 services? Do [...] documented as of this encounter Care Teams Junior Software Engineer Relationship Specialty Start Date End Date Noreen Hills APRN ROTARY DRYER OPERATOR PCP - General Nurse Practitioner 01/09/19 12/12/[address] [place] [address] [place] [address] Noreen Hills APRN ROTARY DRYER OPERATOR Assigned PCP 06/16/[address] [place] [address] [place] [address] documented as of this encounter
--- OUTSIDE RECORDS SUMMARY | 2022-02-02 09:11 | XMS_ITS | Encounter Summary ---
:1965 Author Organization [place] Address [address] [place] [address] Care Team Providers Name Role Phone Noreen Hills APRN, CNP Unavailable [phone] Noreen Hills APRN, CNP Primary Care Provider [phone] Reason for Visit Reason Comments Medication Refill resend - [facility] RELIEF- D 10-240 MG 24 hr tablet Encounter Details Date Type Department Care Team Description 05/18/2019 Refill [facility] Vanda Guerrero M edication Refill Clinic [facility] SALDANA (resend - [facility] [address] [place] 3305 [facility] RELIE F-D 10-240 MG 24 Village [facility] DR hr tablet) [address] [place] [address] [place] [id number] [phone] Social History Tobacco Use Types Packs/Day Years [...] How often do you attend hinduism or methodist Patient refused 08/08/2019 services? Do [...] resend. 05/09/19 rx failed to e-scribe Pharmacy. VITIES DIRECTOR SCOUTING Telephone Encounter - Wilda Patterson - 05/18/2019 2:52 PM CST [facility] RELIEF-D 10-240 MG 24 hr tablet Last Written Prescription Date: 04/29/19 Last Fill Quantity: 90 # refills: 1 Last office visit: 01/02/2019 with prescribing provider: Future Office Visit: VITIES DIRECTOR SCOUTING documented in this encounter Plan of Treatment Not on filedocumented as of this encounter Visit Diagnoses Diagnosis Chronic seasonal allergic rhinitis documented in this encounter Additional Health Concerns Assessment Noted Time PHQ-9 Depression Total Score: 10 01/02/2019 10:18 AM C DT documented as of this encounter Care Teams Global Commodity Manager Relationship Specialty Start Date End Date Noreen Hills APRN FOXING CLOSER PCP - General Nurse Practitioner 01/09/19 12/12/[address] [place] [address] [place] [address] Noreen Hills APRN FOXING CLOSER Assigned PCP 06/16/[address] [place] [address] [place] [address] documented as of this encounter
--- OUTSIDE RECORDS SUMMARY | 2022-02-02 09:11 | XMS_ITS | Encounter Summary ---
:1965 Author Organization [place] Address [address] [place] [address] Care Team Providers Name Role Phone Noreen Hills APRN FOUNDRY WORKER Unavailable [phone] Noreen Hills APRN FOUNDRY WORKER Primary Care Provider [phone] Reason for Visit Reason Onset Date Comments Refill Request 05/22/2019 Encounter Details Date Type Department Care Team Description 05/22/2019 MyC Refill [facility] Noreen Hills Ref ill Request Pino Haley APRN FOUNDRY WORKER 3305 [facility] [address] [place] [address] [address] [place] [address] [place] [id number] [phone] Social History Tobacco Use Types Packs/Day Years [...] How often do you attend baptist or roman catholic Patient refused 08/08/2019 services? [...] Shefali Root MA - 06/02/2019 9:03 AM JEWEL INSERTER Patient has appointment on 08/08/2019 Shefali Root MA L INSERTER Telephone Encounter - Christi Panda MA - 05/30/2019 9:09 AM CST My Chart message sent to schedule. Christi Panda CMA L INSERTER Telephone Encounter - Lainey Wells - 05/23/2019 12:22 PM CST 1st attempt l/m. Lainey Wells on 05/23/2019 at 12:22 PM L INSERTER Telephone Encounter - Noreen Hills APRN CNP - 05/23/2019 11:28 AM JEWEL INSERTER I will fill Ambien. I prefer her not being on Sudafed. Can worsen anxiety and blood pressure\ Would she be willing to switch to regular loratadine? Due for physical in Jul. Please assist with scheduling. L INSERTER Telephone Encounter - Liya Gonzalez RN - 05/23/2019 9:16 AM CST Loratadine prescription failed transmission Ambien has 2 weeks left on script Thea OzunaCONTRACT ANALYST [facility] [phone] L INSERTER documented in this encounter Plan of Treatment Not on filedocumented as of this encounter Visit Diagnoses Diagnosis Persistent insomnia Persistent disorder of initiating or martínez ntaining sleep Chronic seasonal allergic rhinitis documented in this encounter Additional Health Concerns Assessment Noted Time PHQ-9 Depression Total Score: 10 01/02/2019 10:18 AM C DT documented as of this encounter Care Teams Computer Methods Analyst Relationship Specialty Start Date End Date Noreen Hills APRN CNP PCP - General Nurse Practitioner 01/09/19 12/12/[address] [place] [address] [place] [address] Noreen Hills APRN CNP Assigned PCP 06/16/[address] [place] [address] [place] [address] documented as of this encounter
--- OUTSIDE RECORDS SUMMARY | 2022-02-02 09:11 | XMS_ITS | Encounter Summary ---
:1965 Author Organization [place] Address [address] [place] [address] Care Team Providers Name Role Phone Nroeen Hills APRN, CNP Unavailable [phone] Noreen Hills APRN, CNP Primary Care Provider [phone] Kalyan Galvan Unavailable Unavailable Lashae Trevino [facility] Unavailable [phone] Eduardo Sharma MD Unavailable Rios Monteiro MD Unavailable Marcelo Artis PA-C Unavailable [phone] Rodrigo Man PA-C Unavailable Reason for Visit Reason Onset Date Comments Medication Refill 04/25/2019 metFORMIN (GLUCOPHAG E) 500 MG tablet Encounter Details Date Type Department Care Team Description 04/25/2019 Refill [facility] Noreen Hills Medication Refill Clinic Pino Haley APRN CNP (metFORMIN (GLUCOPHAGE) [address] [place] 3305 [facility] 500 M G tablet) [facility] [address] [place] [address] [place] [address] [phone] Social History Tobacco Use Types Packs/Day Years [...] How often do you attend orthodox or congregation Patient refused 08/08/2019 services? Do [...] not current: LDL, creatinine Due for appointment NCIAL SERVICES AUDITOR Telephone Encounter - Lara Villalba - 04/25/2019 [...] & Orders section of the refill encounter. NCIAL SERVICES AUDITOR documented in this encounter Plan of Treatment [...] documented as of this encounter Care Teams Male Infertility Specialist Relationship Specialty Start Date End Date Noreen Hills PCP - General Nurse Practitioner 01/09/19 12/12/21 SEAN Haley BALANCE WHEEL HAND FILER 3305 [facility] [place] [address] Noreen Hills Assigned PCP 06/16/18 SEAN Haley BALANCE WHEEL HAND FILER 3305 [facility] [place] [address] Kalyan Galvan Personal Advocate & 08/08/19 Liaison (PAL) Lashae Trevino Pharmacist Pharmacist 10/14/19 12/01/20 [facility] 1440 [facility] [place] [address] Eduardo Sharma MD Assigned Sleep Provider 04/02/20 05/07/21 [address] [place]AN [address] [place] [id number] Rios Monteiro MD Assigned Musculoskeletal 04/02/20 08/24/20 [address] [employer] Provider ROSHAN 300 [place] [id number] Marcelo Artis Assigned Musculoskeletal 08/25/20 08/20/21 MIKAYLA Nuno Provider [address] [facility] [address] [place] [address] Rodrigo Man Assigned Surgical 08/25/2011/27 MIKAYLA Lacy Provider 6545 [facility] 450 [place], [place] [address] documented as of this encounter
--- OUTSIDE RECORDS SUMMARY | 2022-02-02 09:11 | XMS_ITS | Encounter Summary ---
:1965 Author Organization [facility] Address [address] [place] [address] Care Team Providers Name Role Phone Noreen Hills APRN, CNP Unavailable [phone] Noreen Hills APRN, CNP Primary Care Provider Reason for Visit [facility] (Routine) - Closed Specialty Diagnoses / Procedures Referred By Contact Refer red To Contact Diagnoses Left foot pain Right foot pain Coello's neuroma of both feet Pes cavus Peroneal tendinitis of both lower legs Agatha Null, DPM, Podiatry/Foot and Ankle Surgery [address] [address] [place] [address] Referral ID Status Reason Start Date Expiration Date Visits Requ ested Visits Authorized [id number] Closed 01/21/2019 06/10/2019 30 30 Encounter Details Date Type Department Care Team Description 02/11/2019 Therapy Visit [facility] Marcelo Trejo, Left foot pain; Rehabilitation Services PT Right foot pain; [place]ino [address] Peroneal tendinitis of both lower legs; [address] [place], [place] Chronic ri ght shoulder pain [facility] [address] [address] [address] [place] [address] (Work) [phone] Social History Tobacco Use Types Packs/Day Years [...] How often do you attend scientologist or jewish Patient refused 08/08/2019 services? Do [...] documented as of this encounter Care Teams Spiral Winding Machine Helper Relationship Specialty Start Date End Date Noreen Hills APRN CUSTOMER SUPPORT ASSISTANT PCP - General Nurse Practitioner 01/09/19 12/12/21 3305 [facility] [place] [address] Noreen Hills APRN CUSTOMER SUPPORT ASSISTANT Assigned PCP 06/16/[address] [place] [address] [place] [address] documented as of this encounter
--- OUTSIDE RECORDS SUMMARY | 2022-02-02 09:11 | XMS_ITS | Encounter Summary ---
:1965 Author Organization [place] Address [address] [place] [address] Care Team Providers Name Role Phone Noreen Hills APRN, CNP Unavailable [phone] Noreen Hills APRN, CNP Primary Care Provider [phone] Encounter Details Date Type Department Care Team [...] How often do you attend anabaptism or advent Patient refused 08/08/2019 services? Do [...] as of this encounter Care Teams Animal Husbandry Manager Relationship Specialty Start Date End Date Noreen Hills APRN NETWORK ASSOCIATE PCP - General Nurse Practitioner 01/09/19 12/12/[address] [place] [address] [place] [address] Noreen Hills APRN NETWORK ASSOCIATE Assigned PCP 06/16/[address] [place] [address] [place] [address] documented as of this encounter
--- OUTSIDE RECORDS SUMMARY | 2022-02-02 09:11 | XMS_ITS | Encounter Summary ---
:1965 Author Organization [place] Address [address] [place] [address] Care Team Providers Name Role Phone Noreen Hills APRN, CNP Unavailable [phone] Noreen Hills APRN, CNP Primary Care Provider [phone] Reason for Visit Reason Comments Medication Refill duplicate, see other enc - C [facility] ALLERGY RELIEF-D 10-240 MG 24 hr tablet Encounter Details Date Type Department Care Team Description 05/21/2019 Refill [facility] Vanda Guerrero M edication Refill Clinic [place]ino SALDANA (duplicate, see other [address] [facility] 3305 [facility] enc - [facility] ALL[facility] DR RELIEF-D 10-240 MG 24 [address] [place] [address] hr tablet) [place] [address] [phone] Social History Tobacco Use Types Packs/Day Years [...] How often do you attend advent or congregation Patient refused 08/08/2019 services? Do [...] is a duplicate request. See 05/18/19 encounter. SUPERVISOR documented in this encounter Plan of Treatment Not on filedocumented as of this encounter Visit Diagnoses Diagnosis Chronic seasonal allergic rhinitis documented in this encounter Additional Health Concerns Assessment Noted Time PHQ-9 Depression Total Score: 10 01/02/2019 10:18 AM C DT documented as of this encounter Care Teams Multi Needle Machine Operator Relationship Specialty Start Date End Date Noreen Hills APRN RACEHORSE TRAINER PCP - General Nurse Practitioner 01/09/19 12/12/[address] [place] [address] [place] [address] Noreen Hills APRN RACEHORSE TRAINER Assigned PCP 06/16/[address] [place] [address] [place] [address] documented as of this encounter
--- OUTSIDE RECORDS SUMMARY | 2022-02-02 09:11 | XMS_ITS | Encounter Summary ---
:1965 Author Organization [place] Address [address] [place] [address] Care Team Providers Name Role Phone Noreen Hills APRN, CNP Unavailable [phone] Noreen Hills APRN, CNP Primary Care Provider [phone] Reason for Visit Reason Comments Medication Refill Encounter Details Date Type Department Care Team Description 05/13/2019 Refill [facility] Aleyda Guerrero MD Medication Refill [place] 3305 [facility] 3305 [facility] [place] [address] [address] [place] [address] [phone] Social History Tobacco Use Types Packs/Day Years [...] How often do you attend buddhist or judaism Patient refused 08/08/2019 services? Do [...] Keyona Cartagena RN - 05/13/2019 10:41 AM HEAD RIGGER Patient has refills remaining with requesting pharmacy. Keyona Palacios - Registered Nurse [facility] RIGGER documented in this encounter Plan of Treatment Not on filedocumented as of this encounter Visit Diagnoses Diagnosis Chronic seasonal allergic rhinitis documented in this encounter Additional Health Concerns Assessment Noted Time PHQ-9 Depression Total Score: 10 01/02/2019 10:18 AM C DT documented as of this encounter Care Teams Emissions Repair Technician Relationship Specialty Start Date End Date Noreen Hills APRN TRAVELING MISSIONARY PCP - General Nurse Practitioner 01/09/19 12/12/21 3305 [facility] [place] [address] Noreen Hills APRN TRAVELING MISSIONARY Assigned PCP 06/16/18 3305 [facility] [place] [address] documented as of this encounter
--- OUTSIDE RECORDS SUMMARY | 2022-02-02 09:11 | XMS_ITS | Encounter Summary ---
:1965 Author Organization [place] Address [address] [place] [address] Care Team Providers Name Role Phone Noreen Hills APRN, CNP Unavailable [phone] Noreen Hills APRN, CNP Primary Care Provider [phone] Reason for Visit Reason Comments Medication Refill topiramide Encounter Details Date Type Department Care Team Description 08/04/2019 Refill [facility] Noreen Hills Medication Refill Clinic Pino Haley APRN CNP (topiramide) [address] [place] 3305 [facility] [address] [place] [address] [place] [id number] [phone] Social History Tobacco Use Types Packs/Day Years [...] How often do you attend methodist or anabaptism Patient refused 08/08/2019 services? Do [...] in past 26 months Janice Jaeger RN HETIC STAPLE EXTRUDER Telephone Encounter - Dania Chappell - 08/04/2019 [...] 90 days) Aug 08, 2019 9:15 AM SYNTHETIC STAPLE EXTRUDER (Arrive by 8:50 AM) Adult Preventative Visit with Noreen Hills APRN [facility] [address] [place] [address] [address] [facility] [address] HETIC STAPLE EXTRUDER documented in this encounter Plan of Treatment Not on filedocumented as of this encounter Visit Diagnoses Diagnosis Migraine without status migrainosus, not intractable, unspecified migraine type Morbid obesity (H) Morbid obesity documented in this encounter Additional Health Concerns Assessment Noted Time PHQ-9 Depression Total Score: 10 01/02/2019 10:18 AM C DT documented as of this encounter Care Teams Steaming Cabinet Tender Relationship Specialty Start Date End Date Noreen Hills APRN CATERING COORDINATOR PCP - General Nurse Practitioner 01/09/19 12/12/[address] [place] [address] [place] [address] Noreen Hills APRN CATERING COORDINATOR Assigned PCP 06/16/[address] [place] [address] [place] [address] documented as of this encounter
--- OUTSIDE RECORDS SUMMARY | 2022-02-02 09:11 | XMS_ITS | Encounter Summary ---
:1965 Author Organization [place] Address [address] [place] [address] Care Team Providers Name Role Phone Noreen Hills APRN, CNP Unavailable [phone] Noreen Hills APRN, CNP Primary Care Provider Reason for Visit Reason Comments Medication Refill Encounter Details Date Type Department Care Team Description 05/06/2019 Refill [facility] Aleyda Guerrero MD Medication Refill [place] 3305 [facility] [address] [facility] [place] [address] [address] [place] [address] [phone] Social History Tobacco Use Types Packs/Day Years [...] How often do you attend tenriism or christianity Patient refused 08/08/2019 services? Do [...] or Health refill protocol or controlled substance ING AND RESIDENCE LIFE DIRECTOR documented in this encounter Plan of Treatment Not on filedocumented as of this encounter Visit Diagnoses Diagnosis Chronic seasonal allergic rhinitis documented in this encounter Additional Health Concerns Assessment Noted Time PHQ-9 Depression Total Score: 10 01/02/2019 10:18 AM C DT documented as of this encounter Care Teams Filler Operator Relationship Specialty Start Date End Date Noreen Hills APRN FINISH REPAIR WORKER PCP - General Nurse Practitioner 01/09/19 12/12/[address] [place] [address] [place] [address] Noreen Hills APRN FINISH REPAIR WORKER Assigned PCP 06/16/[address] [place] [address] [place] [address] documented as of this encounter
--- OUTSIDE RECORDS SUMMARY | 2022-02-02 09:11 | XMS_ITS | Encounter Summary ---
:1965 Author Organization [facility] [facility] Address [address] [place] [address] Care Team Providers Name Role Phone Vanda Guerrero MD Primary Care Provider [phone] Noreen Hills APRN STONE DRILLER Unavailable [phone] Encounter Details Date Type Department Care Team [...] How often do you attend zoroastrian or denominational Patient refused 08/08/2019 services? Do [...] Depression Total Score: 7 06/25/2018 9:49 AM FIELD ARTILLERY TARGETING TECHNICIAN documented as of this encounter Care Teams Supervisor Drawing Relationship Specialty Start Date End Date Vanda Guerrero MD PCP - General Internal Medicine 04/08/15 01/08/[address] [place] [address] [place] [address] Noreen Hills APRN STONE DRILLER Assigned PCP 06/16/18 3305 [facility] [place] [address] documented as of this encounter
--- OUTSIDE RECORDS SUMMARY | 2022-02-02 09:11 | XMS_ITS | Encounter Summary ---
:1965 Author Organization [facility] Address [address] [place] [address] Care Team Providers Name Role Phone Vanda Guerrero MD Primary Care Provider [phone] Noreen Hills APRN DAY HAUL OR FARM CHARTER BUS DRIVER Unavailable [phone] Noreen Hills APRN, CNP Primary Care Provider [phone] Reason for Visit Reason Comments Medication Refill Encounter Details Date Type Department Care Team Description 01/07/2019 Refill [facility] Noreen Hills, Medication Refill [place]ino ESTRADA DAY HAUL OR FARM CHARTER BUS DRIVER 330 [facility] 3305 [facility] [address] [place] [address] [place] [address] [phone] Social History Tobacco Use Types Packs/Day Years [...] documented as of this encounter Care Teams Interventional Tech Relationship Specialty Start Date End Date Vanda Guerrero MD PCP - General Internal Medicine 04/08/15 01/08/[address] [place] [address] [place] [address] Noreen Hills APRN DAY HAUL OR FARM CHARTER BUS DRIVER PCP - General Nurse Practitioner 01/09/19 12/12/[address] [place] [address] [place] [address] Noreen Hills APRN DAY HAUL OR FARM CHARTER BUS DRIVER Assigned PCP 06/16/[address] [place] [address] [place] [address] documented as of this encounter
--- OUTSIDE RECORDS SUMMARY | 2022-02-02 09:11 | XMS_ITS | Encounter Summary ---
:1965 Author Organization [place] Address [address] [place] [address] Care Team Providers Name Role Phone Noreen Hills APRN CALENDERING MACHINE OPERATOR Unavailable [phone] Noreen Hills APRN CALENDERING MACHINE OPERATOR Primary Care Provider [phone] Reason for Visit Reason Comments Medication Refill Encounter Details Date Type Department Care Team Description 06/11/2019 Refill [facility] Noreen Hills, Medication Refill [place] ESTRADA CALENDERING MACHINE OPERATOR [address] [place] [address] [place] [address] [phone] Social History Tobacco Use Types Packs/Day Years [...] How often do you attend restorationism or rastafari Patient refused 08/08/2019 services? Do [...] Ok x one refill has appointment pending WAITER/WAITRESS Telephone Encounter - Rosalia Garcia MA - [...] 90 days) Aug 08, 2019 9:15 AM HEAD WAITER/WAITRESS (Arrive by 8:50 AM) Adult Preventative Visit with Noreen Hills [facility]N C[facility]) [address] [place] [address] [address] [place] [address] WAITER/WAITRESS documented in this encounter Plan of Treatment [...] documented as of this encounter Care Teams Steward/Stewardess Wine Relationship Specialty Start Date End Date Noreen Hills APRN CNP PCP - General Nurse Practitioner 01/09/19 12/12/[address] [place] [address] [place] [address] Noreen Hills APRN CNP Assigned PCP 06/16/[address] [place] [address] documented as of this encounter
--- OUTSIDE RECORDS SUMMARY | 2022-02-02 09:11 | XMS_ITS | Encounter Summary ---
:1965 Author Organization [facility] Address [address] [place] [address] Care Team Providers Name Role Phone Noreen Hills APRN, CNP Unavailable [phone] Noreen Hills APRN, CNP Primary Care Provider [phone] Encounter Details Date Type Department Care Team [...] How often do you attend moravian or synagogue Patient refused 08/08/2019 services? Do [...] documented as of this encounter Care Teams Hooker Up Relationship Specialty Start Date End Date Noreen Hills APRN SMALL ARMS ARTILLERY REPAIRER PCP - General Nurse Practitioner 01/09/19 12/12/[address] [place] [address] [place] [address] Noreen Hills APRN SMALL ARMS ARTILLERY REPAIRER Assigned PCP 06/16/[address] [place] [address] [place] [address] documented as of this encounter
--- OUTSIDE RECORDS SUMMARY | 2022-02-02 09:11 | XMS_ITS | Encounter Summary ---
:1965 Author Organization [facility] Address [address] [place] [address] Care Team Providers Name Role Phone Noreen Hills APRN, CNP Unavailable [phone] Noreen Hills APRN, CNP Primary Care Provider [phone] Encounter Details Date Type Department Care Team [...] How often do you attend spiritism or congregation Patient refused 08/08/2019 services? Do [...] Start Date End Date Noreen Hills APRN RABIES INSPECTOR PCP - General Nurse Practitioner 01/09/19 12/12/[address] [place] [address] [place] [address] Noreen Hills APRN RABIES INSPECTOR Assigned PCP 06/16/[address] [place] [address] [place] [address] documented as of this encounter
--- OUTSIDE RECORDS SUMMARY | 2022-02-02 09:11 | XMS_ITS | Encounter Summary ---
:1965 Author Organization [facility] Address [address] [place] [address] Care Team Providers Name Role Phone Vanda Guerrero MD Primary Care Provider [phone] Noreen Hills APRN TELEPHONE SEX WORKER Unavailable [phone] Reason for Visit Reason Onset Date Comments Panel Management 12/09/2018 Encounter Details Date Type Department Care Team Description 12/09/2018 Telephone [facility] Noreen Hills Management [place] Haley APRN TELEPHONE SEX WORKER 3305 [facility] 3305 [facility] [address] [place] [address] [place] [id number] [phone] Social History Tobacco Use Types Packs/Day Years [...] How often do you attend adventism or sabianism Patient refused 08/08/2019 services? Do [...] with pre-visit labs. Type of outreach: Sent [facility] message. Questions for provider review: None Christi Panda CMA Chart routed to Care Team . documented in this encounter Plan of Treatment Not on filedocumented as of this encounter Visit Diagnoses Not on filedocumented in this encounter Additional Health Concerns Assessment Noted Time PHQ-9 Depression Total Score: 7 06/25/2018 9:49 AM LIFE SCIENCES MANAGER documented as of this encounter Care Teams Lei Maker Relationship Specialty Start Date End Date Vanda Guerrero MD PCP - General Internal Medicine 04/08/15 01/08/19 3302 [facility] [place] [address] Noreen Hills APRN TELEPHONE SEX WORKER Assigned PCP 06/16/[address] [place] [address] [place] [id number] documented as of this encounter
--- OUTSIDE RECORDS SUMMARY | 2022-02-02 09:11 | XMS_ITS | Encounter Summary ---
:1965 Author Organization [place] Address [address] [place] [address] Care Team Providers Name Role Phone Noreen Hills APRN, CNP Unavailable [phone] Noreen Hills APRN, CNP Primary Care Provider [phone] Reason for Visit Reason Comments Medication Refill Encounter Details Date Type Department Care Team Description 05/26/2019 Refill [facility] Aleyda Guerrero MD Medication Refill [place] [address] [facility] 3305 [facility] [place] [address] [address] [place] [address] [phone] Social History Tobacco Use Types Packs/Day Years [...] How often do you attend mandaen or adventist Patient refused 08/08/2019 services? Do [...] Hills APRN CNP - 05/27/2019 11:08 AM PLACEMENT OFFICER See refill request from 05/22 EMENT OFFICER Telephone Encounter - Flakita Gaines RN - 05/27/2019 10:57 AM CST Routing refill request to provider for review/approval because: Drug not on the [facility] refill protocol Flakita Gaines RN EMENT OFFICER documented in this encounter Plan of Treatment Not on filedocumented as of this encounter Visit Diagnoses Diagnosis Chronic seasonal allergic rhinitis documented in this encounter Additional Health Concerns Assessment Noted Time PHQ-9 Depression Total Score: 10 01/02/2019 10:18 AM C DT documented as of this encounter Care Teams Setter Automatic Spinning Lathe Relationship Specialty Start Date End Date Noreen Hills APRN RESERVATION MANAGER PCP - General Nurse Practitioner 01/09/19 12/12/[address] [place] [address] [place] [address] Noreen Hills APRN RESERVATION MANAGER Assigned PCP 06/16/[address] [place] [address] [place] [address] documented as of this encounter
--- OUTSIDE RECORDS SUMMARY | 2022-02-02 09:11 | XMS_ITS | Encounter Summary ---
:1965 Author Organization [place] Address [address] [place] [address] Care Team Providers Name Role Phone Noreen Hills APRN HOME SECURITY ALARM INSTALLER Unavailable [phone] Noreen Hills APRN HOME SECURITY ALARM INSTALLER Primary Care Provider [phone] Encounter Details Date Type Department Care Team Description 02/03/2019 Orders Only [facility] Noreen Hills Type 2 [facility] [place]ino Haley APRN mellitus wit h Laboratory HOME SECURITY ALARM INSTALLER complication, without [address] [place] [address] [facility] long- term current use [facility] of insulin (H) [address] [place] [address] [place] [phone] Social History Tobacco Use Types Packs/Day Years [...] How often do you attend muslim or yarsanism Patient refused 08/08/2019 services? Do [...] Time Signature Occult Blood Negative NEG^Negati 02/01/2019 [facility] FIT ve 10:58 AM CDT [facility] Specimen Anatomical Collection Method Collection Time Receive d Time (Source) Location / / Volume Laterality Stool specimen 01/25/2019 7:35 AM 019 (specimen) CDT 10:01 AM CDT Noreen Hills APRN, CNP LAB - STOOLS ORDERABLES Performing Organization Address City/State/ZIP Code Phon e Number [facility] [address] [place], [place] [id number] [place] [address] documented in this encounter Visit Diagnoses Diagnosis Type 2 diabetes mellitus with complicati on, without long-term current use of insulin (H) documented in this encounter Additional Health Concerns Assessment Noted Time PHQ-9 Depression Total Score: 10 01/02/2019 10:18 AM C DT documented as of this encounter Care Teams Juvenile Corrections Officer Relationship Specialty Start Date End Date Noreen Hills APRN CNP PCP - General Nurse Practitioner 01/09/19 12/12/21 [address] [facility] [place] [address] Noreen Hills APRN CNP Assigned PCP 06/16/18 [address] [facility] [place] [address] documented as of this encounter
--- OUTSIDE RECORDS SUMMARY | 2022-02-02 09:11 | XMS_ITS | Encounter Summary ---
:1965 Author Organization [place] Address [address] [place] [address] Care Team Providers Name Role Phone Vanda Guerrero MD Primary Care Provider [phone] Noreen Hills APRN DAIRY NUTRITIONIST Unavailable [phone] Reason for Referral [facility] Physical Therapy (Routine) - Closed Specialty Diagnoses / Procedures Referred By Contact Refer red To Contact Diagnoses Acute pain of right shoulder Noreen Hills APRN CNP [address] [facility] [place] [address] Referral ID Status Reason Start Date Expiration Date Visits Requ ested Visits Authorized [id number] Closed 01/02/2019 06/10/2019 30 30 onsultation (Routine) - Closed Specialty Diagnoses / Procedures Referred By Contact Refer red To Contact Podiatry Diagnoses Left foot pain Noreen Hills M [facility] PATROL MOTHER DAIRY NUTRITIONIST [place] [address] [place] [address] [place] [phone] Fax: Referral ID Status Reason Start Date Expiration Date Visits Requ ested Visits Authorized [id number] Closed 01/02/2019 01/02/2020 1 1 ision Services (Routine) - Closed Specialty Diagnoses / Procedures Referred By Contact Refer red To Contact Diagnoses Type 2 diabetes mellitus with complication, without long-term current use of insulin (H) Noreen Hills M [facility] PATROL MOTHERAngella ROSA JACLYN [address] [place] [address] DR Nevaeh Bass [place] [address] [address] [place] [address] Phone: Fax: Referral ID Status Reason Start Date Expiration Date Visits Requ ested Visits Authorized [id number] Closed 01/02/2019 01/02/2020 1 1 Reason for Visit Reason Comments Shoulder Pain Encounter Details Date Type Department Care Team Description 01/02/[address] [facility] Noreen Hills APRN CNP [address] [place] [address] [place] [address] Fibromyalgia (Primary Dx); [facility], Remberto Rn Pal Acute pain of right shoulder; [address] [place] [address] Left foot pain; [facility] Kali Type 2 diabetes mellitus wit [...] How often do you attend sabianist or episcopalian Patient refused 08/08/2019 services? Do [...] and Fibromayalgia) Lashawn Esquivel & Staci Arambula [phone] Have hubby call [facility] and ask about warm pool therapy or access to the warm pool and discounted memberships. See podiatry Start physical therapy documented in this encounter Progress Notes Noreen Hills APRN CNP - 01/02/2019 9:20 AM CDT Subjective Mgean Choi is a 53 year old female [...] warm water pool therapy at the in [place] (M25.511) Acute pain of right shoulder Comment: [...] Time Signature Occult Blood Negative NEG^Negati 02/01/2019 [facility] FIT ve 10:58 AM CDT [facility] Specimen Anatomical Collection Method Collection Time Receive d Time (Source) Location / / Volume Laterality Stool specimen 01/25/2019 7:35 AM 019 (specimen) CDT 10:01 AM CDT Noreen Hills APRN DAIRY NUTRITIONIST LAB - STOOLS ORDERABLES Performing Organization Address City/State/ZIP Code Phon e Number [facility] [address] [place], [place] [id number] [place] [address] (ABNORMAL) Hemoglobin A1c (01/02/2019 9:56 AM CDT) [...] Organization Address City/State/ZIP Code Phon e Number [facility] JACLYN [address] [facility] [place] [address] [phone] documented in this encounter Visit Diagnoses Diagnosis [...] documented as of this encounter Care Teams Dental Service Chief Relationship Specialty Start Date End Date Vanda Guerrero MD PCP - General Internal Medicine 04/08/15 01/08/[address] [place] [address] [place] [address] Noreen Hills APRN CNP Assigned PCP 06/16/[address] [place] [address] [place] [address] documented as of this encounter
--- OUTSIDE RECORDS SUMMARY | 2022-02-02 09:11 | XMS_ITS | Encounter Summary ---
:1965 Author Organization [place] Address [address] [place] [address] Care Team Providers Name Role Phone Noreen Hills APRN, CNP Unavailable [phone] Noreen Hills APRN, CNP Primary Care Provider [phone] Reason for Visit [facility] Physical Therapy (Routine) - Closed Specialty Diagnoses / Procedures Referred By Contact Refer red To Contact Diagnoses Left foot pain Right foot pain Coello's neuroma of both feet Pes cavus Peroneal tendinitis of both lower legs Agatha Null, DPM, Podiatry/Foot and Ankle Surgery [address] [place] [address] Referral ID Status Reason Start Date Expiration Date Visits Requ ested Visits Authorized [id number] Closed 01/21/2019 06/10/2019 30 30 Encounter Details Date Type Department Care Team Description 01/28/2019 Therapy Visit [facility] Marcelo Trejo, Left foot pain; Rehabilitation Services PT Right foot pain; [place] [address] Coello's neuroma of both feet; [address] [place], [place] Pes cavus; [address] [address] Peroneal tendinitis of both lower legs; [address] Chronic right shoulder pain P[place] [address] (Work) [phone] Social History Tobacco Use Types Packs/Day Years [...] How often do you attend spiritism or christian Patient refused 08/08/2019 services? Do [...] Trejo, PT - 01/28/2019 10:00 AM CDT [facility] Initial Evaluation Subjective: The history is provided by the patient. No wax pattern repairer was used. Megan Choi being seen for [...] gradually worsening. Special tests: X-ray. 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 THERAPEUTIC Routine 01/28/2019 10:42 AM Left [...] documented as of this encounter Care Teams Transactional Paralegal Relationship Specialty Start Date End Date Noreen Hills APRN GROMMET WORKER PCP - General Nurse Practitioner 01/09/19 12/12/[address] [place] [address] [place] [address] Noreen Hills APRN GROMMET WORKER Assigned PCP 06/16/[address] [place] [address] [place] [address] documented as of this encounter
--- OUTSIDE RECORDS SUMMARY | 2022-02-02 09:11 | XMS_ITS | Encounter Summary ---
:1965 Author Organization [facility] Address [address] [place] [address] Care Team Providers Name Role Phone Noreen Hills APRN, CNP Unavailable [phone] Noreen Hills APRN, CNP Primary Care Provider [phone] Encounter Details Date Type Department Care Team [...] How often do you attend mu-ism or sikh Patient refused 08/08/2019 services? Do [...] documented as of this encounter Care Teams Geodetic Surveyor Relationship Specialty Start Date End Date Noreen Hills APRN SUPERVISOR INDUSTRIAL GARMENT PCP - General Nurse Practitioner 01/09/19 12/12/[address] [place] [address] [place] [address] Noreen Hills APRN SUPERVISOR INDUSTRIAL GARMENT Assigned PCP 06/16/[address] [place] [address] [place] [address] documented as of this encounter
--- OUTSIDE RECORDS SUMMARY | 2022-02-02 09:11 | XMS_ITS | Encounter Summary ---
:1965 Author Organization [place] Address [address] [place] [address] Care Team Providers Name Role Phone Noreen Hills APRN, CNP Unavailable [phone] Noreen Hills APRN, CNP Primary Care Provider [phone] Reason for Visit [facility] Physical Therapy (Routine) - Closed Specialty Diagnoses / Procedures Referred By Contact Refer red To Contact Diagnoses Left foot pain Right foot pain Coello's neuroma of both feet Pes cavus Peroneal tendinitis of both lower legs Agatha Null, DPM, Podiatry/Foot and Ankle Surgery [address] [place] [address] Referral ID Status Reason Start Date Expiration Date Visits Requ ested Visits Authorized [id number] Closed 01/21/2019 06/10/2019 30 30 Encounter Details Date Type Department Care Team Description 02/04/[address] [facility] Marcelo Trejo, Left foot pain; Rehabilitation Services PT Right foot pain; [place] [address] Peroneal tendinitis of both lower legs; [address] [place], [place] Chronic ri ght shoulder pain [facility] [address] [address] [address] [place] [address] (Work) [phone] Social History Tobacco Use Types Packs/Day Years [...] How often do you attend islam or sabianist Patient refused 08/08/2019 services? Do [...] documented as of this encounter Care Teams Bed Teacher Relationship Specialty Start Date End Date Noreen Hills APRN DOCUMENTATION SPEC PCP - General Nurse Practitioner 01/09/19 12/12/[address] [place] [address] [place] [address] Noreen Hills APRN DOCUMENTATION SPEC Assigned PCP 06/16/[address] [place] [address] [place] [address] documented as of this encounter
--- OUTSIDE RECORDS SUMMARY | 2022-02-02 09:11 | XMS_ITS | Encounter Summary ---
:1965 Author Organization [place] Address [address] [place] [address] Care Team Providers Name Role Phone Vanda Guerrero MD Primary Care Provider [phone] Noreen Hills APRN QUARRY SUPERVISOR Unavailable [phone] Encounter Details Date Type Department Care Team [...] How often do you attend anabaptist or catholic Patient refused 08/08/2019 services? Do [...] documented as of this encounter Care Teams Recruiting Manager Relationship Specialty Start Date End Date Vanda Guerrero MD PCP - General Internal Medicine 04/08/15 01/08/[address] [place] [address] [place] [address] Noreen Hills APRN QUARRY SUPERVISOR Assigned PCP 06/16/[address] [place] [address] [place] [address] documented as of this encounter
--- OUTSIDE RECORDS SUMMARY | 2022-02-02 09:11 | XMS_ITS | Encounter Summary ---
:1965 Author Organization [place] Address [address] [place] [address] Care Team Providers Name Role Phone Noreen Hills APRN, CNP Unavailable [phone] Noreen Hills APRN, CNP Primary Care Provider [phone] Reason for Visit Diagnostic Imaging XR (Routine) - Closed Specialty Diagnoses / Procedures Referred By Contact Refer red To Contact Diagnoses Left foot pain Agatha Null, DPM, Procedures XR Foot Left G/E 3 Views Podiatry/Foot and Ankle Surgery [address] [place] [address] Referral ID Status Reason Start Date Expiration Date Visits Requ ested Visits Authorized [id number] Closed 01/21/2019 01/21/2020 1 1 Encounter Details Date Type Department Care Team Description 01/21/2019 [facility] [place] DPM, Podiatry/Foot [address] [facility] [place] [address] [address] [address] [facility] [address] [place] [address] Social History Tobacco Use Types [...] How often do you attend samaritan or taoism Patient refused 08/08/2019 services? Do you belong to any clubs or organizations such as No 08/08/2019 samaritan groups, [employer], [employer] or athletic groups, or school groups? [...] documented as of this encounter Care Teams Gym Instructor Relationship Specialty Start Date End Date Noreen Hills APRN TILER PCP - General Nurse Practitioner 01/09/19 12/12/[address] [place] [address] [place] [address] Noreen Hills APRN TILER Assigned PCP 06/16/[address] [place] [address] [place] [address] documented as of this encounter
--- OUTSIDE RECORDS SUMMARY | 2022-02-02 09:11 | XMS_ITS | Encounter Summary ---
:1965 Author Organization [place] Address [address] [place] [address] Care Team Providers Name Role Phone Noreen Hills APRN, CNP Unavailable [phone] Noreen Hills APRN, CNP Primary Care Provider [phone] Reason for Visit [facility] Physical Therapy (Routine) - Closed Specialty Diagnoses / Procedures Referred By Contact Refer red To Contact Diagnoses Left foot pain Right foot pain Coello's neuroma of both feet Pes cavus Peroneal tendinitis of both lower legs Agahta Null, DPM, Podiatry/Foot and Ankle Surgery [address] [place] [address] Referral ID Status Reason Start Date Expiration Date Visits Requ ested Visits Authorized [id number] Closed 01/21/2019 06/10/2019 30 30 Encounter Details Date Type Department Care Team Description 02/25/2019 [facility] [place], Left fo ot pain; Rehabilitation Services PT Right foot pain; [place] [address] Peroneal tendinitis of both lower legs; [address] Chronic right shoulder pain [place], [place] [address] [address] [place] [address] [phone] Social History Tobacco Use Types Packs/Day Years [...] How often do you attend jain or hinduism Patient refused 08/08/2019 services? Do [...] documented as of this encounter Progress Notes Cehn [place], PT - 02/25/2019 10:20 AM CDT [...] and time spent performing 1:1 timed codes. KERCHIEF PRESSER documented in this encounter Plan of Treatment Not on filedocumented as of this encounter Procedures Procedure Name Priority Date/Time Associated Diagnosis Comme nts [facility] NEUROMUSCULAR Routine 02/25/2019 10:49 AM Left foot pain RE-EDUCATION CDT Right foot pain Peroneal tendinitis of both lower le gs Chronic right shoulder pain [facility] THERAPEUTIC EXERCISES Routine 02/25/2019 10:49 [...] documented as of this encounter Care Teams Wire Stitcher Machine Relationship Specialty Start Date End Date Noreen Hills APRN DAY CAMP COUNSELOR PCP - General Nurse Practitioner 01/09/19 12/12/[address] [place] [address] [place] [address] Noreen Hills APRN DAY CAMP COUNSELOR Assigned PCP 06/16/18 [address] [facility] [place] [address] documented as of this encounter
--- OUTSIDE RECORDS SUMMARY | 2022-02-02 09:11 | XMS_ITS | Encounter Summary ---
:1965 Author Organization [place] Address [address] [place] [address] Care Team Providers Name Role Phone Noreen Hills APRN DOOR PANELER Unavailable [phone] Noreen Hills APRN DOOR PANELER Primary Care Provider [phone] Reason for Visit Reason Comments Medication Refill Encounter Details Date Type Department Care Team Description 07/08/2019 Refill [facility] Noreen Hills, Medication Refill [place]ino ESTRADA DOOR PANELER [address] [place] [address] [place] [address] [phone] Social History Tobacco Use Types Packs/Day Years [...] How often do you attend congregational or uatsdin Patient refused 08/08/2019 services? Do [...] Deisy Moon RN - 07/08/2019 3:47 PM CHANNEL MAN Routing refill request to provider for review/approval because: Drug not on the G refill protocol Next 5 appointments (look out 90 days) Aug 08, 2019 9:15 AM CHANNEL MAN (Arrive by 8:50 AM) Adult Preventative Visit with Noreen Hills [facility] [address] [place] [address] [address] [facility] [address] NEL MAN documented in this encounter Plan of Treatment Not on filedocumented as of this encounter Visit Diagnoses Diagnosis Constipation, unspecified constipation t ype documented in this encounter Additional Health Concerns Assessment Noted Time PHQ-9 Depression Total Score: 10 01/02/2019 10:18 AM C DT documented as of this encounter Care Teams Party Demonstrator Relationship Specialty Start Date End Date Noreen Hills APRN DOOR PANELER PCP - General Nurse Practitioner 01/09/19 12/12/[address] [place] [address] [place] [address] Noreen Hills APRN DOOR PANELER Assigned PCP 06/16/[address] [place] [address] [place] [address] documented as of this encounter
--- OUTSIDE RECORDS SUMMARY | 2022-02-02 09:11 | XMS_ITS | Encounter Summary ---
:1965 Author Organization [place] Address [address] [place] [address] Care Team Providers Name Role Phone Noreen Hills APRN, CNP Unavailable [phone] Noreen Hills APRN, CNP Primary Care Provider [phone] Reason for Visit [facility] Physical Therapy (Routine) - Closed Specialty Diagnoses / Procedures Referred By Contact Refer red To Contact Diagnoses Acute pain of right shoulder Noreen Hills APRN SYSTEM ANALYST [address] [facility] [place] [address] Referral ID Status Reason Start Date Expiration Date Visits Requ ested Visits Authorized [id number] Closed 01/02/2019 06/10/2019 30 30 Encounter Details Date Type Department Care Team Description 01/10/[address] [facility] Marcelo Trejo Chro isaac right shoulder pain (Primary Dx); Rehabilitation Services PT Acute pain of right shoulder [place] [address] [address] [address] [place] [address] (Work) [phone] Social History Tobacco Use Types Packs/Day Years [...] How often do you attend taoist or christianity Patient refused 08/08/2019 services? Do [...] Trejo PT - 01/10/2019 3:50 PM CDT [facility] Initial Evaluation Subjective: The history is provided by the patient and a caregiver. No sign language interpreter was used. Megan Choi being seen for [...] Since onset symptoms are unchanged. 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 Restrictions include: Working in normal job without [...] Sheet for this information) Short term and jail goals: (See Goal Flow Sheet for this [...] Procedure Name Priority Date/Time Associated Diagnosis Comme [facility] THERAPEUTIC Routine 01/10/2019 4:26 PM Chronic right shoul donna EXERCISES CDT pain documented in this encounter Visit Diagnoses Diagnosis Chronic right shoulder pain - Primary Pain in joint, shoulder region Acute pain of right shoulder documented in this encounter Additional Health Concerns Assessment Noted Time PHQ-9 Depression Total Score: 10 01/02/2019 10:18 AM C DT documented as of this encounter Care Teams Dry Drug Worker Relationship Specialty Start Date End Date Noreen Hills APRN SYSTEM ANALYST PCP - General Nurse Practitioner 01/09/19 12/12/21 [address] [facility] [place] [id number] Noreen Hills APRN SYSTEM ANALYST Assigned PCP 06/16/18 [address] [facility] [place] [address] documented as of this encounter
--- OUTSIDE RECORDS SUMMARY | 2022-02-02 09:12 | XMS_ITS | Encounter Summary ---
:1965 Author Organization [place] Address [address] [place] [address] Care Team Providers Name Role Phone Vanda Guerrero MD Primary Care Provider [phone] Vanda Guerrero MD Unavailable Encounter Details [...] How often do you attend zoroastrian or anglican Patient refused 08/08/2019 services? Do [...] documented as of this encounter Care Teams Pole Shaver Relationship Specialty Start Date End Date Vanda Guerrero MD PCP - General Internal Medicine 04/08/15 01/08/[address] [place] [address] [place] [address] Vanda Guerrero MD PCP - Assigned PCP 07/24/16 06/15/[address] [place] [address] [place] [address] documented as of this encounter
--- OUTSIDE RECORDS SUMMARY | 2022-02-02 09:12 | XMS_ITS | Encounter Summary ---
:1965 Author Organization [place] Address [address] [place] [address] Care Team Providers Name Role Phone Vanda Guerrero MD Primary Care Provider [phone] Noreen Hills APRN STAGECRAFT PROFESSOR Unavailable [phone] Noreen Hills APRN STAGECRAFT PROFESSOR Unavailable [phone] Reason for Visit Reason Comments Diabetes Encounter Details Date Type Department Care Team Description 06/25/2018 Office Visit [facility] Noreen Hills Abnormal l eg movement (Primary Dx); Clinic Pino Haley APRN Constipation, unspecified co nstipation type; [address] [place] STAGECRAFT PROFESSOR Anxiety; [address] [facility] Persistent insomnia; [address] [facility] [address] Moderate episode of recurrent major depr essive disorder (H); [place] [address] [place] [address] Fibromyalgia; [phone] Migraine withou t status migrainosus, not intractable, unspecified migraine type; (Work) Type 2 diabetes mellitus with complicati on, without long-term current use of insulin (H); [phone] Hyperlipidemia LDL goal <100; (Fax) Morbid obesity [...] How often do you attend pentecostal or oriental orthodox Patient refused 08/08/2019 services? Do you belong to any clubs or organizations such as No 08/08/2019 pentecostal groups, [employer] Mobiles, fraternal or athletic groups, or school groups? [...] Comments Blood Pressure 114/58 06/25/2018 9:50 AM METER AND REGULATOR SHOP SUPERVISOR Pulse 72 06/25/2018 9:50 AM METER AND REGULATOR SHOP SUPERVISOR Temperature 36.7 ??C (98 ??F) 06/25/2018 9:50 AM METER AND REGULATOR SHOP SUPERVISOR Respiratory Rate - - Oxygen Saturation 99% 06/25/2018 9:50 AM METER AND REGULATOR SHOP SUPERVISOR Inhaled Oxygen Concentration - - Weight 82.1 kg (181 lb 1.6 oz) 06/25/2018 9:50 AM METER AND REGULATOR SHOP SUPERVISOR Height 157.5 cm (5' 2) 06/25/2018 9:50 AM METER AND REGULATOR SHOP SUPERVISOR Body Mass Index 33.12 06/25/2018 9:50 AM METER AND REGULATOR SHOP SUPERVISOR documented in this encounter Patient Instructions Patient InstructionsMoliNoreen stone APRN CNP - 06/25/2018 9:40 AM METER AND REGULATOR SHOP SUPERVISOR 1. See if covered. [facility] (Chronic Pain, Rheumatology, and Fibromayalgia) Lashawn Esquivel & Staci Arambula [phone] 2. Same dose of Cymbalta. Cut Celexa in half (just take 10mg). Hopefully this will help with the legmovements but not worsen anxiety. 3. For constipation. Start fiber capsules. Start with 1 capsule and a big glass of water in the morning. Then increase to 2 capsules with a big glass of water in the afternoon. Message me if this isn'tworking. R AND REGULATOR SHOP SUPERVISOR documented in this encounter Progress Notes Noreen [...] (FIT), *MA Screening Digital Bilateral TONY Schneider-DNP. R AND REGULATOR SHOP SUPERVISOR documented in this encounter Plan [...] Depression Total Score: 7 06/25/2018 9:49 AM METER AND REGULATOR SHOP SUPERVISOR documented as of this encounter Care Teams Framing Manager Relationship Specialty Start Date End Date Vanda Guerrero MD PCP - General Internal Medicine 04/08/15 01/08/[address] [place] [address] [place] [address] Noreen Hills APRN PCP - Assigned PCP 06/16/18 08/13/[address] [place] [address] Noreen Hills APRN Assigned PCP 06/16/[address] [place] [address] documented as of this encounter
--- OUTSIDE RECORDS SUMMARY | 2022-02-02 09:12 | XMS_ITS | Encounter Summary ---
:1965 Author Organization [place] Address [address] [place] [address] Care Team Providers Name Role Phone Vanda Guerrero MD Primary Care Provider [phone] Noreen Hills APRN ARMATURE AND ROTOR WINDER Unavailable [phone] Encounter Details Date Type Department Care Team [...] How often do you attend tenriism or uatsdin Patient refused 08/08/2019 services? Do [...] Depression Total Score: 7 06/25/2018 9:49 AM WEATHER STRIP MECHANIC documented as of this encounter Care Teams Director Counseling Bureau Relationship Specialty Start Date End Date Vanda Guerrero MD PCP - General Internal Medicine 04/08/15 01/08/[address] [place] [address] [place] [address] Noreen Hills APRN ARMATURE AND ROTOR WINDER Assigned PCP 06/16/18 [address] [facility] [place] [address] documented as of this encounter
--- OUTSIDE RECORDS SUMMARY | 2022-02-02 09:12 | XMS_ITS | Encounter Summary ---
:1965 Author Organization [place] Address [address] [place] [address] Care Team Providers Name Role Phone Vanda Guerrero MD Primary Care Provider Noreen Hills APRN SOLAR PHOTOVOLTAIC DESIGNER Unavailable [phone] Reason for Visit Reason Onset Date Comments Refill Request 10/20/2018 loratadine-pseudoePH EDrine ([facility] ALLERGY RELIEF-D) 10- 240 MG per 24 hr tablet Encounter Details Date Type Department Care Team Description 10/20/2018 Refill [facility] Vanda Guerrero R efill Request Clinic Pino SALDANA (loratadine-pseudoePHED [address] [place] [address] [facility] rine ([facility] RELIEF-D) 10-240 MG per [address] [place] [address] 24 hr tablet) [place] [address] [phone] Social History Tobacco Use Types Packs/Day Years [...] How often do you attend druze or church Patient refused 08/08/2019 services? Do [...] She would like it faxed to the [facility] in [employer] in [place]. Faxing now. Emily Horn CMA on 10/01/2018 at 9:32 AM Telephone Encounter - Vanda Guerrero MD - 10/22/2018 12:52 PM CDT Script printed, signed, and in station out basket or on MA[employer]/RN desk Vanda Guerrero MD Internal Medicine - Pediatrics Telephone Encounter - Kimberlyn Martinez RN - 10/21/2018 5:50 PM CDT Claritin D Routing refill request to provider for review/approval because: Drug not on the [facility] refill protocol Kimberlyn Martinez RN, BSN Telephone [...] Depression Total Score: 7 06/25/2018 9:49 AM COMPOTYPE OPERATOR documented as of this encounter Care Teams Brand Designer Relationship Specialty Start Date End Date Vanda Guerrero MD PCP - General Internal Medicine 04/08/15 01/08/[address] [facility] [place] [address] Noreen Hills, SEAN SOLAR PHOTOVOLTAIC DESIGNER Assigned PCP 06/16/[address] [facility] [address] [place], [place] [address] documented as of this encounter
--- OUTSIDE RECORDS SUMMARY | 2022-02-02 09:12 | XMS_ITS | Encounter Summary ---
:1965 Author Organization [place] Address [address] [place] [address] Care Team Providers Name Role Phone Vanda Guerrero MD Primary Care Provider [phone] Noreen Hills APRN TUBE COVERER Unavailable [phone] Noreen Hills APRN TUBE COVERER Unavailable [phone] Reason for Referral Diagnostic Imaging Mammo - Closed Specialty Diagnoses / Procedures Referred By Contact Refer red To Contact Diagnoses Health care maintenance Noreen Hills, Procedures *MA Screening Digital Bilateral [place] [address] [facility] [place] [address] Referral ID Status Reason Start Date Expiration Date Visits Requ ested Visits Authorized [id number] Closed 07/25/2018 07/25/2019 1 1 F HAND Reason for Visit Reason Comments Physical Encounter Details Date Type Department Care Team Description 07/25/2018 Office Visit [facility] Noreen Hills car e maintenance (Primary Dx); Clinic Pino Haley APRN Vitamin D deficiency; 3305 [facility] Fibromyalgia; [address] [facility] Migraine without status migr ainosus, not intractable, unspecified migraine type; [address] [facility] Moderate episode of recurrent major depr essive disorder (H) [place] [address] [place] [id number] Social History Tobacco Use Types Packs/Day Years [...] How often do you attend zoroastrian or scientology Patient refused 08/08/2019 services? Do [...] Comments Blood Pressure 116/64 07/25/2018 4:30 PM WHARF HAND Pulse 79 07/25/2018 4:30 PM WHARF HAND Temperature 36.4 ??C (97.5 ??F) 07/25/2018 4:30 PM WHARF HAND Respiratory Rate - - Oxygen Saturation 99% 07/25/2018 4:30 PM WHARF HAND Inhaled Oxygen Concentration - - Weight 82.1 kg (181 lb) 07/25/2018 4:30 PM WHARF HAND Height 157.5 cm (5' 2) 07/25/2018 4:30 PM WHARF HAND Body Mass Index 33.11 07/25/2018 4:30 PM WHARF HAND documented in this encounter Patient Instructions Patient InstructionsChristi Panda MA - 07/25/2018 4:20 PM CST Headaches: -Google rebound headaches -Consider magnesium OXALATE 500mg per day to reduce headaches -Consider B2 400mg -Aromatherapy -Guided relaxation -Stay on topiramate for now -Headache journal Fibro: Rheum nurse consultants Yoga Warm water pool-[facility] warm water pool Stop muscle relaxant cold [...] eye doctor every 1 to 2 years. F HAND documented in this encounter Progress Notes Noreen [...] NEG Negative Negative Test canceled - Lab night order selector error(A) HPV 18 DNA NEG Negative Negative Test canceled - Lab night order selector error(A) OTHER HR HPV NEG Negative Negative Test canceled - Lab night order selector error(A) Reviewed and updated as needed this [...] better nutrition discussed. She is motivated. Recommended Sidell Y warm water pool therapy -Start talk [...] Lung CA Screening Noreen Hills APRN CNP [facility] F HAND documented in this encounter Plan of Treatment Not on filedocumented as of this encounter Results Fecal colorectal cancer screen (FIT) (01/12/2020 8:00 AM CDT) Analysis Performed At Patho logist Time Signature Occult Blood Negative NEG^Negati 01/18/2020 [facility] FIT ve 4:19 PM CDT [facility] Specimen Anatomical Collection Method Collection Time Receive d Time (Source) Location / / Volume Laterality Stool specimen 01/12/2020 8:00 AM 020 1:16 (specimen) CDT PM CDT Noreen Hills APRN, CNP LAB - STOOLS ORDERABLES Performing Organization Address City/State/ZIP Code Phon e Number [facility] [address] [place], [place] [id number] [place] [address] *MA Screening Digital Bilateral (09/03/2018 10:13 AM [...] Scattered fibroglandular densities. CLINICAL INFORMATION: Breast screening. ??[facility] care maintenance, 09/30/15, 04/16/15, 05/27/13 FINDINGS: Negative. Stable exam. Screeni ng exam in one year recommended. Procedure Note Stanislav Desir MD - 09/03/2018Formatt ing of this note might be different from the original. SCREENING MAMMOGRAM, BILATERAL, DIGITAL w/CAD, 09/03/2018 10:29 AM BREAST DENSITY: Scattered fibroglandular densities. CLINICAL INFORMATION: Breast screening. [facility], 09/30/15, 04/16/15, 05/27/13 FINDINGS: Negative. Stable exam. Screeni ng exam in one year recommended. IMPRESSION: BI-RADS CATEGORY: 1 - Negati ve. RECOMMENDED FOLLOW-UP: Annual Mammograph y. STANISLAV DESIR MD Noreen Hills APRN [facility] MAMMOGRAPHY ORDERAB LES documented in this encounter [...] Depression Total Score: 7 06/25/2018 9:49 AM WHARF HAND documented as of this encounter Care Teams Tourist Camp Attendant Relationship Specialty Start Date End Date Vanda Guerrero MD PCP - General Internal Medicine 04/08/15 01/08/[address] [place] [address] [place] [address] Noreen Hills APRN PCP - Assigned PCP 06/16/18 08/13/[address] [place] [address] Noreen Hills APRN Assigned PCP 06/16/[address] [place] [address] documented as of this encounter
--- OUTSIDE RECORDS SUMMARY | 2022-02-02 09:12 | XMS_ITS | Encounter Summary ---
:1965 Author Organization [facility] Address [address] [place] [address] Care Team Providers Name Role Phone Vanda Guerrero MD Primary Care Provider [phone] Vanda Guerrero MD Unavailable Reason for Visit Reason Comments Medication Refill metFORMIN (GLUCOPHAGE) 500 M G tablet Encounter Details Date Type Department Care Team Description 05/23/2018 Refill [facility] Vanda Guerrero M edication Refill Clinic Pino SALDANA (metFORMIN (GLUCOPHAGE) [address] [place] 3305 [facility] 500 M G tablet) [facility] [address] [place] [address] [place] [address] [phone] Social History Tobacco Use Types Packs/Day Years [...] How often do you attend jewish or alevism Patient refused 08/08/2019 services? Do [...] - Lori Weber - 06/03/2018 8:18 AM RN ENDOCRINOLOGY Type of outreach: Phone, spoke to patient. [...] PLANNING Q5 YRS 2018 Lori Weber MA ENDOCRINOLOGY Telephone Encounter - Adali Pierson - 05/27/2018 2:45 PM CST LVM for patient to callback. Thanks Chema Allan Team Coodinator ENDOCRINOLOGY Telephone Encounter - Gayathri Mcallister RN - 05/27/2018 11:47 AM RN ENDOCRINOLOGY TC-please call patient to schedule: Return in about 1 week (around 04/16/2018) for Establish care/DM with Florentino, then to lab, please ask if she wants flu. Prescription approved per [facility] Refill Protocol. Gayathri Mcallister RN Message handled by Nurse Triage. ENDOCRINOLOGY Telephone Encounter - Marisa Matthew - 05/23/2018 [...] & Orders section of the refill encounter. ENDOCRINOLOGY documented in this encounter Plan of Treatment Not on filedocumented as of this encounter Visit Diagnoses Diagnosis Type 2 diabetes mellitus without complic ation, without long-term current use of insulin (H) documented in this encounter Additional Health Concerns Assessment Noted Time PHQ-9 Depression Total Score: 8 02/18/2018 7:04 AM CDT documented as of this encounter Care Teams Sales Operations Analyst Relationship Specialty Start Date End Date Vanda Guerrero MD PCP - General Internal Medicine 04/08/15 01/08/19 [address] [facility] [place] [address] Vanda Guerrero MD PCP - Assigned PCP 07/24/16 06/15/18 [address] [facility] [place] [address] documented as of this encounter
--- OUTSIDE RECORDS SUMMARY | 2022-02-02 09:12 | XMS_ITS | Encounter Summary ---
:1965 Author Organization [facility] Address [address] [place] [address] Care Team Providers Name Role Phone Vanda Guerrero MD Primary Care Provider [phone] Vanda Guerrero MD Unavailable JeanaNoreen girard FARM FORESTRY AND GARDEN WORKERS FACTORY CLERK Unavailable [phone] JeanaNoreen girard FARM FORESTRY [employer] GARDEN WORKERS FACTORY CLERK Unavailable [phone] JeanaNoreen girard FARM FORESTRY AND GARDEN WORKERS FACTORY CLERK Primary Care Provider Kalyan Galvan Unavailable Unavailable Lashae Trevino [facility] Unavailable [phone] Eduardo Sharma MD Unavailable Rios Monteiro MD Unavailable Marcelo Artis-C Unavailable [phone] Rodrigo Man-C Unavailable Reason for Visit Reason Comments Medication Refill zolpidem (AMBIEN) 5 MG table t Encounter Details Date Type Department Care Team Description 02/20/2018 Refill [facility] Vanda Guerrero M edication Refill Clinic Pino SALDANA (zolpidem (AMBIEN) 5 MG [address] [place] [address]305 [facility] table t) [facility] [address] [place] [address] [place] [address] [phone] Social History Tobacco Use Types Packs/Day Years [...] How often do you attend methodist or zoroastrian Patient refused 08/08/2019 services? Do [...] and in station out basket or on MA/CABIN WORKER/RN desk Telephone Encounter - Gayathri Mcallister RN - 02/21/2018 3:33 PM CDT SUPPLY PLANNER checked: patient refilled: 06/12, 07/07 and 10/04 [...] as of this encounter Care Teams Insulation Worker Interior Surface Relationship Specialty Start Date End Date Vanda Guerrero, PCP - General Internal Medicine 04/08/15 01/08/[address] [place] [address] [place] [id number] Vanda Guerrero, PCP - Assigned PCP 07/24/16 [facility] [place] [address] Noreen Hills PCP - Assigned PCP 06/16/18 08/13/18 SEAN Haley FACTORY CLERK [address] [facility] [place] [address] Noreen Hills PCP - General Nurse Practitioner 01/09/19 12/12/21 SEAN Haley FACTORY CLERK [address] [facility] [place] [address] Noreen Hills Assigned PCP 06/16/18 SEAN Haley FACTORY CLERK [address] [facility] [address] Kalyan Galvan Personal Advocate & 08/08/19 Liaison (PAL) Lashae Trevino Pharmacist Pharmacist 10/14/19 12/01/20 Kiran [facility] [address] [place] [id number] Eduardo Sharma MD Assigned Sleep Provider 04/02/20 05/07/21 [address] [place] [address] Rios Monteiro MD Assigned Musculoskeletal 04/02/20 08/24/20 [address] [facility] Provider [address] [place] [address] Marcelo Artis Assigned Musculoskeletal 08/25/20 08/20/21 MIKAYLA Nuno Provider [address] [facility] [address] [place] [address] Rodrigo Man Assigned Surgical 08/25/2011/27 MIKAYLA Lacy Provider [address] [place] [address] documented as of this encounter
--- OUTSIDE RECORDS SUMMARY | 2022-02-02 09:12 | XMS_ITS | Encounter Summary ---
:1965 Author Organization [place] Address [address] [place] [address] Care Team Providers Name Role Phone Vanda Guerrero MD Primary Care Provider [phone] Noreen Hills APRN FREQUENCY CHECKER Unavailable [phone] Noreen Hills APRN FREQUENCY CHECKER Unavailable [phone] Encounter Details Date Type Department Care [...] How often do you attend jainism or presybeterian Patient refused 08/08/2019 services? Do [...] Depression Total Score: 7 06/25/2018 9:49 AM BUSINESS COMMUNICATIONS INSTRUCTOR documented as of this encounter Care Teams Wellness Ambassador Relationship Specialty Start Date End Date Vanda Guerrero MD PCP - General Internal Medicine 04/08/15 01/08/[address] [place] [address] [place] [address] Noreen Hills APRN PCP - Assigned PCP 06/16/18 08/13/[address] [place] [address] Noreen Hills APRN Assigned PCP 06/16/[address] [place] [address] documented as of this encounter
--- OUTSIDE RECORDS SUMMARY | 2022-02-02 09:12 | XMS_ITS | Encounter Summary ---
:1965 Author Organization [place] Address [address] [place] [address] Care Team Providers Name Role Phone Vanda Guerrero MD Primary Care Provider [phone] Noreen Hills APRN INSURANCE CLAIMS SUPERVISOR Unavailable [phone] Encounter Details Date Type Department Care Team [...] Depression Total Score: 7 06/25/2018 9:49 AM RESEARCH WORKER ENCYCLOPEDIA documented as of this encounter Care Teams Interlocking And Signal Mechanic Relationship Specialty Start Date End Date Vanda Guerrero MD PCP - General Internal Medicine 04/08/15 01/08/[address] [place] [address] [place] [address] Noreen Hills APRN INSURANCE CLAIMS SUPERVISOR Assigned PCP 06/16/18 [address] [facility] [place] [address] documented as of this encounter
--- OUTSIDE RECORDS SUMMARY | 2022-02-02 09:12 | XMS_ITS | Encounter Summary ---
:1965 Author Organization [place] Address [address] [place] [address] Care Team Providers Name Role Phone Vanda Guerrero MD Primary Care Provider [phone] Vanda Guerrero MD Unavailable Reason for Visit Reason Onset Date Comments Refill Request 02/15/2018 methocarbamol (ROBAX IN) 500 MG tablet Encounter Details Date Type Department Care Team Description 02/15/2018 Refill [facility] Vanda Guerrero R efill Request Clinic [facility] SALDANA (methocarbamol [address] [place] [address] [facility] 500 MG [facility] tablet) [address] [place] [address] [place] [address] [phone] Social History Tobacco Use Types Packs/Day Years [...] How often do you attend evangelical or orthodoxy Patient refused 08/08/2019 services? Do [...] for review/approval because: Drug not on the [facility] refill protocol Telephone [...] documented as of this encounter Care Teams Skates Operator Relationship Specialty Start Date End Date Vanda Guerrero MD PCP - General Internal Medicine 04/08/15 01/08/[address] [place] [address] [place] [address] Vanda Guerrero MD PCP - Assigned PCP 07/24/16 06/15/[address] [place] [address] [place] [address] documented as of this encounter
--- OUTSIDE RECORDS SUMMARY | 2022-02-02 09:12 | XMS_ITS | Encounter Summary ---
:1965 Author Organization [facility] Address [address] [place] [address] Care Team Providers Name Role Phone Vnada Guerrero MD Primary Care Provider [phone] Noreen Hills APRN UPHOLSTERED GOODS CRAFTER Unavailable [phone] Noreen Hills APRN UPHOLSTERED GOODS CRAFTER Unavailable [phone] Encounter Details Date Type Department Care [...] How often do you attend protestant or confucianist Patient refused 08/08/2019 services? Do [...] Depression Total Score: 7 06/25/2018 9:49 AM GRANULIZING MACHINE OPERATOR documented as of this encounter Care Teams Wheel Tuner Relationship Specialty Start Date End Date Vanda Guerrero MD PCP - General Internal Medicine 04/08/15 01/08/[address] [place] [address] [place] [address] Noreen Hills APRN PCP - Assigned PCP 06/16/18 08/13/[address] [place] [address] Noreen Hills APRN Assigned PCP 06/16/[address] [place] [address] documented as of this encounter
--- OUTSIDE RECORDS SUMMARY | 2022-02-02 09:12 | XMS_ITS | Encounter Summary ---
:1965 Author Organization [facility] Address [address] [place] [address] Care Team Providers Name Role Phone Vanda Guerrero MD Primary Care Provider [phone] Noreen Hills APRN FUR NAILER Unavailable [phone] Reason for Visit Reason Comments Headache Encounter Details Date Type Department Care Team Description 08/29/2018 - Emergency [facility] [place], [place] Migrai ne without aura 08/30/2018 [facility] Emergency MD [place] and with status Dept EMERGENCY PHYSICIANS migrainosus, not [address] [place], [place] [address] [facility] [place] [address] [address] [place], [place] [id number] [phone] (Wo rk) Social History Tobacco Use Types [...] How often do you attend congregational or mandaen Patient refused 08/08/2019 services? Do [...] capsule 8 capsule 0 017 01/02/2019 D3) 76707 UNITS (50,000 Units) by capsuleIndications: mouth once a week Vitamin D deficiency DULoxetine (CYMBALTA) 30 TAKE 1 CAPSULE (30 180 capsule 3 01/02/2019 MG EC capsuleIndications: MG) BY MOUTH 2 Fibromyalgia TIMES DAILY fluticasone (FLONASE) 50 [place] 1-2 sprays 3 Bottle 3 06/1208/07/2019 MCG/ACT [...] or confusion and I doubt stroke or MANAGER MAIL tumor. I do not feel that advanced [...] observations and the provider's statements to me. [facility] EMERGENCY DEPARTMENT Troy Storey MD 09/01/18 [...] 08/29/2018 08/30/2018 sodium chloride 0.9% infusion 2357 ([facility] eled Entry - Provider: Orders Generic [...] Depression Total Score: 7 06/25/2018 9:49 AM DIRECTOR OF CONSULTING SERVICES documented as of this encounter Care Teams Welding Pantograph Operator Relationship Specialty Start Date End Date Vanda Guerrero MD PCP - General Internal Medicine 04/08/15 01/08/19 [address] [facility] [place] [address] Noreen Hills APRN FUR NAILER Assigned PCP 06/16/18 [address] [facility] [place] [address] documented as of this encounter
--- OUTSIDE RECORDS SUMMARY | 2022-02-02 09:12 | XMS_ITS | Encounter Summary ---
:1965 Author Organization [place] Address [address] [place] [address] Care Team Providers Name Role Phone Vanda Guerrero MD Primary Care Provider [phone] Vanda Guerrero MD Unavailable Reason for Visit Reason Comments Medication Refill methocarbamol (ROBAXIN) 500 MG tablet Encounter Details Date Type Department Care Team Description 05/28/2018 Refill [facility] Vanda Guerrero M edication Refill Clinic Pino SALDANA (methocarbamol [address] [facility] (ROBA JESSICA) 500 MG [facility] tablet) [address] [place] [address] [place] [address] [phone] Social History Tobacco Use Types Packs/Day Years [...] How often do you attend zoroastrian or spiritism Patient refused 08/08/2019 services? Do [...] no refill protocol information for this order YSTEMS ENGINEER documented in this encounter Plan of Treatment Not on filedocumented as of this encounter Visit Diagnoses Diagnosis Muscle spasm Spasm of muscle documented in this encounter Additional Health Concerns Assessment Noted Time PHQ-9 Depression Total Score: 8 02/18/2018 7:04 AM CDT documented as of this encounter Care Teams Subgrade Tester Relationship Specialty Start Date End Date Vanda Guerrero MD PCP - General Internal Medicine 04/08/15 01/08/19 3305 [facility] [place] [address] Vanda Guerrero MD PCP - Assigned PCP 07/24/16 06/15/18 3305 [facility] [place] [address] documented as of this encounter
--- OUTSIDE RECORDS SUMMARY | 2022-02-02 09:12 | XMS_ITS | Encounter Summary ---
:1965 Author Organization [place] Address [address] [place] [address] Care Team Providers Name Role Phone Vanda Guerrero MD Primary Care Provider [phone] Noreen Hills STATE COMPTROLLER CASINO BANKER Unavailable [phone] Reason for Visit Diagnostic Imaging Mammo - Closed Specialty Diagnoses / Procedures Referred By Contact Refer red To Contact Diagnoses Health care maintenance Noreen Hills, Procedures *MA Screening Digital Bilateral STATE COMPTROLLER CASINO BANKER [address] [facility] [place] [address] Referral ID Status Reason Start Date Expiration Date Visits Requ ested Visits Authorized [id number] Closed 07/25/2018 07/25/2019 1 1 Encounter Details Date Type Department Care Team Description 09/03/2018 Ancillary Procedure M [facility] care Clinic Pino maintenance [address] [facility] [address] [place] [phone] Social History Tobacco Use Types Packs/Day Years [...] How often do you attend nondenominational or roman catholic Patient refused 08/08/2019 services? [...] fibroglandular densities. CLINICAL INFORMATION: Breast screening. ??[facility] care maintenance, 09/30/15, 04/16/15, 05/27/13 FINDINGS: Negative. Stable exam. Screeni ng exam in one year recommended. Procedure Note Stanislav Desir MD - 09/03/2018Formatt ing of this note might be different from the original. SCREENING MAMMOGRAM, BILATERAL, DIGITAL w/CAD, 09/03/2018 10:29 AM BREAST DENSITY: Scattered fibroglandular densities. CLINICAL INFORMATION: Breast screening. [facility], 09/30/15, 04/16/15, 05/27/13 FINDINGS: Negative. Stable exam. Screeni ng exam in one year recommended. IMPRESSION: BI-RADS CATEGORY: 1 - Negati ve. RECOMMENDED FOLLOW-UP: Annual Mammograph y. STANISLAV DESIR MD Noreen Hills APRN CASINO BANKER IMG MAMMOGRAPHY ORDERAB LES documented in this encounter Visit Diagnoses Diagnosis Health care maintenance Unspecified general medical examination documented in this encounter Additional Health Concerns Assessment Noted Time PHQ-9 Depression Total Score: 7 06/25/2018 9:49 AM FIBRE OPTICS JOINTER documented as of this encounter Care Teams Lance Crewmember/Mlrs Sergeant Relationship Specialty Start Date End Date Vanda Guerrero MD PCP - General Internal Medicine 04/08/15 01/08/[address] [place] [address] [place] [address] N[place]en Hills APRN CNP Assigned PCP 06/16/[address] [place] [address] [place] [address] documented as of this encounter
--- OUTSIDE RECORDS SUMMARY | 2022-02-02 09:12 | XMS_ITS | Encounter Summary ---
:1965 Author Organization [place] Address [facility] [place] [address] Care Team Providers Name Role Phone Vanda Guerrero MD Primary Care Provider [phone] N[place]en Hills APRN MACHINE SET UP TECHNICIAN Unavailable [phone] Reason for Referral Consultation (Routine) - Closed Specialty Diagnoses / Procedures Referred By Contact Refer red To Contact Diagnoses Fibromyalgia Kavin Fitzgerald ARTHRITIS & RHEUMATOLOGY [place] [address] [place], [place] [id number] [facility] [place] [address] [place] [address] Phone: [phone] Referral ID Status Reason Start Date Expiration Date Visits Requ ested Visits Authorized [id number] Closed 11/13/2018 11/13/2019 1 1 Reason for Visit Reason Comments Joint Pain Encounter Details Date Type Department Care Team Description 11/13/2018 Office Visit [facility] Kavin Fitzgerald Fibr omyalgia (Primary Clinic Pino Fernandez PA-C Dx) [address] [place] [address] [place] [address] [address] [place] [address] [place] [address] Social History Tobacco Use [...] How often do you attend jain or jain Patient refused 08/08/2019 services? Do [...] PA-C - 11/13/2018 2:40 PM CDT Subjective Megna Choi is a 53 year old female [...] offered to her. 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 Review of Systems ROS COMP: otherwise NEGATIVE Objective BP 130/64 (BP Location: Right arm, Patient Position: Chair, Cuff Size: Adult Regular) Pulse 92 Temp 97.4 ??F (36.3 ??C) (Tympanic) Ht 1.575 m (5' 2) Wt 83.9 kg (185 lb) LMP 10/30/2011 RrE129% BMI 33.84 kg/m?? Body mass index is [...] MG tablet, RHEUMATOLOGY REFERRAL Kavin Fitzgerald PA-C [facility] documented in this encounter Plan of Treatment Scheduled Referrals Name Type Priority Associated Diagnoses Order S [facility] RHEUMATOLOGY REFERRAL Referral Routine Fibromyalgia Ordere d: 11/13/2018 documented as of this encounter Visit Diagnoses Diagnosis Fibromyalgia - Primary Mylagia and myositis, unspecified documented in this encounter Additional Health Concerns Assessment Noted Time PHQ-9 Depression Total Score: 7 06/25/2018 9:49 AM MAIL DISTRIBUTION CLERK documented as of this encounter Care Teams Wound Care Technician Relationship Specialty Start Date End Date Vanda Guerrero MD PCP - General Internal Medicine 04/08/15 01/08/19 3305 [facility] [place] [address] Noreen Hills APRN MACHINE SET UP TECHNICIAN Assigned PCP 06/16/18 3305 [facility] [place] [address] documented as of this encounter
--- OUTSIDE RECORDS SUMMARY | 2022-02-02 09:12 | XMS_ITS | Encounter Summary ---
:1965 Author Organization [place] Address [address] [place] [address] Care Team Providers Name Role Phone Vanda Guerrero MD Primary Care Provider [phone] Noreen Hills APRN LIVESTOCK PRODUCER Unavailable [phone] Reason for Visit Reason Comments Medication Refill omeprazole (PRILOSEC) 20 MG CR capsule Encounter Details Date Type Department Care Team Description 11/09/2018 Refill [facility] Vanda Guerrero M edication Refill Clinic Pino SALDANA (omeprazole (PRILOSEC) [address] [place] 3305 [facility] 20 MG CR capsule) [facility] [address] [place] [address] [place] [address] [phone] Social History Tobacco Use Types Packs/Day Years [...] How often do you attend bahai or sabianism Patient refused 08/08/2019 services? Do [...] 11/11/2018 2:05 PM CDT Prescription approved per [facility] Refill Protocol. Shala Blackmon RN Telephone Encounter [...] Depression Total Score: 7 06/25/2018 9:49 AM INDUSTRIAL SOCIOLOGIST documented as of this encounter Care Teams Demo Event Specialist Relationship Specialty Start Date End Date Vanda Guerrero MD PCP - General Internal Medicine 04/08/15 01/08/[address] [place] [address] [place] [address] Noreen Hills APRN LIVESTOCK PRODUCER Assigned PCP 06/16/18 3305 [facility] [place] [address] documented as of this encounter
--- OUTSIDE RECORDS SUMMARY | 2022-02-02 09:12 | XMS_ITS | Encounter Summary ---
:1965 Author Organization [place] Address [address] [place] [address] Care Team Providers Name Role Phone Vanda Guerrero MD Primary Care Provider [phone] Vanda Guerrero MD Unavailable Reason for Referral Care Coordination - Closed Specialty Diagnoses / Procedures Referred By Contact Refer red To Contact Diagnoses Acute bilateral low back pain without sciatica N[place]en Hills APRN LENS GRINDER ROUGH [address] [place] [address] [place] [address] Referral ID Status Reason Start Date Expiration Date Visits Requ ested Visits Authorized [id number] Closed 04/09/2018 04/09/2019 1 1 Reason for Visit Reason Comments Back Pain Encounter Details Date Type Department Care Team Description 04/09/2018 Office Visit [facility] Noreen Hills Acute bila teral low back pain without sciatica (Primary Dx); Clinic Pino Haley APRN Symptomatic menopausal or fe male climacteric states; [address] [facility] Type 2 diabetes mellitus without complic ation, without long-term current use of insulin (H); [address] [facility] LDL goal <100 ; [address] [facility] Migraine without status migrainosus, not intractable, unspecified migraine type; [place] [address] [place] [address] Anxiety; [phone] Moderate episod e of recurrent major depressive disorder (H); (Work) Fibromyalgia; [phone] Encounter for s creening for HIV; (Fax) [...] How often do you attend uatsdin or buddhism Patient refused 08/08/2019 services? 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 Date Jun 2017 Sees a specialist for [...] Signature Ferritin 55 8 - 252 04/09/2018 [facility] ng/mL 5:17 PM CDT [facility] Specimen Anatomical Collection Method Collection Time Receive d Time (Source) Location / / Volume Laterality Blood specimen 04/09/2018 11:07 8 (specimen) AM CDT 11:12 AM CDT N[place]en Hills APRN, CNP LAB - BLOOD ORDERABLES Performing Organization Address City/State/ZIP Code Phon e Number [facility] [address] [place] [address] Albumin Random Urine Quantitative with Creat Ratio (04/09/2018 10:10 AM CDT) athologist Signature Creatinine 138 mg/dL 04/09/2018 [place] [facility] Urine 5:28 PM CDT [facility] Albumin Urine 8 mg/L 04/09/2018 [place] [facility] mg/L 5:33 PM CDT [facility] Albumin Urine 5.51 0 - 25 04/09/2018 [place] [facility] mg/g Cr mg/g Cr 5:33 PM CDT [facility] Specimen Anatomical Collection Method Collection Time Receive d Time (Source) Location / / Volume Laterality Urine specimen 04/09/2018 10:10 8 (specimen) AM CDT 10:15 AM CDT N[place]en Hills APRN LENS GRINDER ROUGH LAB - URINE ORDERABLES Performing Organization Address City/State/ZIP Code Phon e Number [facility] [address] [place] [address] HIV Antigen Antibody Combo (04/09/2018 10:09 AM CDT) [facility] gist Method Time Signature HIV Antigen Nonreactive NR^Nonrea 04/10/2018 [facility] ctive 7:29 AM CDT [facility] Comment: HIV-1 p24 Ag & HIV-1/HIV-2 Ab N ot Detected Specimen Anatomical Collection Method Collection Time Receive d Time (Source) Location / / Volume Laterality Blood specimen 04/09/2018 10:09 8 (specimen) AM CDT 10:15 AM CDT Noreen Hills APRN LENS GRINDER ROUGH LAB - BLOOD ORDERABLES Performing Organization Address City/[facility]/ZIP Code Phon e Number [facility] [address] [place] [address] [place] (ABNORMAL) Basic metabolic panel (04/09/2018 10:09 AM CDT) Analysis Performed At [facility] logist Time Signature Sodium 143 133 - 144 04/09/2018 [place] [facility] mmol/L 2:28 PM CDT [facility] Potassium 4.2 3.4 - 5.3 04/09/2018 [facility] mmol/L 2:28 PM CDT [facility] Chloride 109 94 - 109 04/09/2018 [place] mmol/L 2:28 PM CDT [facility] Carbon Dioxide 27 20 - 32 04/09/2018 [facility] mmol/L 2:28 PM CDT [facility] Anion Gap 7 3 - 14 04/09/2018 [place] [facility] mmol/L 2:28 PM CDT [facility] Glucose 133 (H) 70 - 99 04/09/2018 [place] mg/dL 2:28 PM CDT [facility] Comment: Fasting specimen Urea Nitrogen 10 7 - 30 mg/dL 04/09/2018 2:28 PM CDT [facility] Creatinine 0.77 0.52 - 1.04 mg/dL 04/09/2018 2:28 PM CD T [facility] GFR Estimate 78 >60 mL/min/1.7m2 04/09/2018 2:28 PM C DT [facility] Comment: Non GFR Calc GFR Estimate If >90 >60 mL/min/1.7m2 04/09/2018 2:28 P M [facility] Black [facility] Comment: GFR Calc Calcium 9.7 8.5 - 10.1 mg/dL 04/09/2018 2:28 PM CDT [facility] Specimen Anatomical Collection Method Collection Time Receive d Time (Source) Location / / Volume Laterality Blood specimen 04/09/2018 10:09 8 (specimen) AM CDT 10:15 AM CDT Noreen Hills CUTTING AND SPLICING SUPERVISOR LENS GRINDER ROUGH LAB - BLOOD ORDERABLES Performing Organization Address City/State/ZIP Code Phon e Number [facility] [address] [place] [address] (ABNORMAL) Lipid panel reflex to direct LDL Fasting (04/09/2018 10:09 AM CDT) Analysis Performed At Patho logist Time Signature Cholesterol 175 <200 mg/dL 04/09/2018 [place] [facility] 2:28 PM [facility] Triglycerides 213 (H) <150 mg/dL 04/09/2018 [place] [facility] 2:28 PM [facility] Comment: Borderline high: ??150-199 mg/dl High: ? 200-499 mg/dl Very high: ? >499 mg/dl Fasting specimen HDL Cholesterol 45 (L) >49 mg/dL 04/09/2018 2:28 PM [facility] IEW [facility] LDL Cholesterol 87 <100 mg/dL 04/09/2018 2:28 PM [facility] CLINICS Calculated [facility] Comment: Desirable: <100 mg/dl Non HDL Cholesterol 130 (H) <130 mg/dL 04/09/2018 2:28 PM [facility] Comment: Above Desirable: ??130-159 mg/dl [...] [facility]/ZIP Code Phon e Number [facility] [address] [place] [address] (ABNORMAL) Hemoglobin A1c (04/09/2018 10:09 AM CDT) P athologist Signature Hemoglobin A1C 6.1 (H) 0 - 5.6 % 04/09/2018 [place] [facility] 10:35 AM CDT [facility] Comment: Normal <5.7% Prediabetes 5.7-6.4% ??Diab etes 6.5% or higher - adopted from ADA consensus guidelines. Specimen Anatomical Collection Method Collection Time Receive d Time (Source) Location / / Volume Laterality Blood specimen 04/09/2018 10:09 8 (specimen) AM CDT 10:15 AM CDT [place]en [place] APRN, CNP LAB - BLOOD ORDERABLES Performing Organization Address City/[facility]/ZIP Code Phon e Number [facility] [address] [place] [address] documented in this encounter Visit Diagnoses Diagnosis [...] as of this encounter Care Teams Inspector Aide Relationship Specialty Start Date End Date Vanda Guerrero MD PCP - General Internal Medicine 04/08/15 01/08/19 2062 [facility] [place] [address] Vanda Guerrero MD PCP - Assigned PCP 07/24/16 06/15/18 3305 [facility] [place] [address] documented as of this encounter
--- OUTSIDE RECORDS SUMMARY | 2022-02-02 09:12 | XMS_ITS | Encounter Summary ---
:1965 Author Organization [place] Address [address] [place] [address] Care Team Providers Name Role Phone Vanda Guerrero MD Primary Care Provider [phone] Vanda Guerrero MD Unavailable JeanaNoreen girard PROTECTION MGR VAMP LINER Unavailable [phone] JeanaNoreen girard PROTECTION MGR VAMP LINER Unavailable [phone] JeanaNoreen girard PROTECTION MGR VAMP LINER Primary Care Provider [phone] Kalyan Galvan Unavailable Unavailable Lashae Trevino [facility] Unavailable [phone] Eduardo Sharma MD Unavailable Rios Monteiro MD Unavailable Marcelo Artis-C Unavailable [phone] Rodrigo Man PA-C Unavailable Reason for Visit Reason Onset Date Comments Refill Request 03/04/2018 loratadine-pseudoePH EDrine ([facility] RELIEF-D) 10- 240 MG per 24 hr tablet Encounter Details Date Type Department Care Team Description 03/04/2018 Refill [facility] Vanda Guerrero R efill Request [facility] Pino SALDANA (loratadine-pseudoePHED [address] [place] [facility] [address] RELIEF-D) 10-240 MG per [address] [place] [address] 24 hr tablet) [place] [id number] [phone] Social History Tobacco Use Types Packs/Day Years [...] How often do you attend episcopal or congregational Patient refused 08/08/2019 services? Do [...] and in station out basket or on MA/BOX INSPECTOR/RN desk Telephone Encounter - Kartik Javier [...] as of this encounter Care Teams Communications Assistant Relationship Specialty Start Date End Date Vanda Guerrero, PCP - General Internal Medicine 04/08/15 01/08/[address] [place] [address] [place] [address] Vanda Guerrero, PCP - Assigned PCP 07/24/16 06/15/[address] [place] [address] [place] [address] N[place]en Hills PCP - Assigned PCP 06/16/18 08/13/18 SEAN Haley VAMP LINER [address] [place] [address] [place] [address] N[place]en Hills PCP - General Nurse Practitioner 01/09/19 12/12/21 SEAN Haley VAMP LINER [address] [place] [address] [place] [address] N[place]en Hills Assigned PCP 06/16/18 SEAN Haley VAMP LINER [address] [place] [address] [place] [address] Kalyan Galvan Personal Advocate & 08/08/19 Liaison (PAL) Lashae Trevino Pharmacist Pharmacist 10/14/19 12/01/20 Kiran [facility] [address] [id number] Eduardo Sharma MD Assigned Sleep Provider 04/02/20 05/07/21 [address] [facility] [address] [place] [id number] Rios Monteiro MD Assigned Musculoskeletal 04/02/20 08/24/20 [address] [employer] [facility] Provider ROSHAN [address] [place] [address] Marcelo Artis Assigned Musculoskeletal 08/25/20 08/20/21 MIKAYLA Nuno Provider [address] [facility] [address] [place] [address] Rodrigo Man Assigned Surgical 08/25/2011/27 MIKAYLA Lacy Provider 6545 [facility] [address] [place], [place] [address] documented as of this encounter
--- OUTSIDE RECORDS SUMMARY | 2022-02-02 09:13 | XMS_ITS | Encounter Summary ---
:1965 Author Organization [place] Address [address] [place] [address] Care Team Providers Name Role Phone Vanda Guerrero MD Primary Care Provider [phone] Vanda Guerrero MD Unavailable Reason for Visit Reason Onset Date Comments Refill Request 12/04/2017 metFORMIN (GLUCOPHAG E) 500 MG tablet Encounter Details Date Type Department Care Team Description 12/04/2017 Refill [facility] Vanda Guerrero R efill Request Clinic Pino SALDANA (metFORMIN (GLUCOPHAGE) [address] [place] 3305 [facility] 500 M G tablet) [facility] [address] [place] [address] [place] [address] [phone] Social History Tobacco Use Types Packs/Day Years [...] How often do you attend anabaptism or methodist Patient refused 08/08/2019 services? Do [...] Requests new Rx, new pharmacy location at [address] [address] documented in this encounter Plan of Treatment Not on filedocumented as of this encounter Visit Diagnoses Diagnosis Type 2 diabetes mellitus without complic ation, without long-term current use of insulin (H) documented in this encounter Additional Health Concerns Assessment Noted Time PHQ-9 Depression Total Score: 12 06/12/2017 1:02 PM CS T documented as of this encounter Care Teams Urogynaecologist Relationship Specialty Start Date End Date Vanda Guerrero MD PCP - General Internal Medicine 04/08/15 01/08/19 3305 [facility] [place] [address] Vanda Guerrero MD PCP - Assigned PCP 07/24/16 06/15/18 3305 [facility] [place] [address] documented as of this encounter
--- OUTSIDE RECORDS SUMMARY | 2022-02-02 09:13 | XMS_ITS | Encounter Summary ---
:1965 Author Organization [place] Address [address] [place] [address]. [place] [address] Care Team Providers Name Role Phone Vanda Guerrero MD Primary Care Provider [phone] Vanda Guerrero MD Unavailable Reason for Visit Reason Comments Consult mole/brown spot on shoulder, it is sore, crusted and now has been sensitive. Has had for a long time, and has been changing over the last 6-8 months Encounter Details Date Type Department Care Team Description 08/21/2017 Office Visit [facility] Vanda Fuentes of uncertain behavior of skin (Primary Dx); Clinic Pino Donnelly MD Solar lentiginosis [address] [place] [address]305 [facility] [address] [place] [address] [place] [address] [phone] Social History Tobacco Use Types Packs/Day Years [...] How often do you attend quaker or orthodoxy Patient refused 08/08/2019 services? Do [...] disease) ??? Obesity ??? Family history of MT (myocardial infarction) ??? Insomnia ??? Upper back [...] TOUCH DELICA) lancets ??? cholecalciferol (VITAMIN D3) 14034 UNITS capsule ??? order for DME ??? 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 Smoking [...] Component Value Ref Test Analysis Performed At [facility] [employer] Range Method Time Signature Copath Report Patient Name: PADMINI CHOI MR#: [id number] Specimen #: [id number] Collected: 08/21/2017 Received: 08/22/2017 Reported: 08/24/2017 15:20 [...] Electronically signed out by: Larry Andrea M.D., [facility] CLINICAL HISTORY: The patient is a [...] the deep mar gin. CPT Codes: A: 80819-UD4.T, 30105-XZ2.P TESTING LAB LOCATION: [facility], [address] ?? 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
--- OUTSIDE RECORDS SUMMARY | 2022-02-02 09:13 | XMS_ITS | Encounter Summary ---
:1965 Author Organization [facility] Address [address] [place] [address] Care Team Providers Name Role Phone Vanda Guerrero MD Primary Care Provider [phone] Vanda Guerrero MD Unavailable Reason for Visit Reason Comments Medication Refill simvastatin (ZOCOR) 20 MG ta blet Encounter Details Date Type Department Care Team Description 05/15/2017 Refill [facility] Vanda Guerrero M edication Refill Clinic Pino SALDANA (simvastatin (ZOCOR) 20 [address] [place] 3305 [facility] MG ta blet) [facility] [address] [place] [address] [place] [address] [phone] Social History Tobacco Use Types Packs/Day Years [...] How often do you attend voodoo or methodist Patient refused 08/08/2019 services? Do [...] Gayathri Mcallister RN - 05/16/2017 11:16 AM UNISAW OPERATOR Patient is due for a diabetic appointment. Routing refill request to provider for review/approval because: Labs out of range: LDL not at goal Gayathri Mcallister RN Message handled by Nurse Triage. AW OPERATOR Telephone Encounter - Marisa Matthew - 05/15/2017 10:34 AM CST YOSELIN 09/25/2016 AW OPERATOR documented in this encounter Plan of Treatment Not on filedocumented as of this encounter Visit Diagnoses Diagnosis Hyperlipidemia LDL goal <100 Other and unspecified hyperlipidemia documented in this encounter Additional Health Concerns Assessment Noted Time PHQ-9 Depression Total Score: 9 10/12/2016 7:16 AM CDT documented as of this encounter Care Teams Resident Advisor Relationship Specialty Start Date End Date Vanda Guerrero MD PCP - General Internal Medicine 04/08/15 01/08/[address] [facility] [place] [phone] Vanda Guerrero MD PCP - Assigned PCP 07/24/16 06/15/[address] [facility] [place] [id number] documented as of this encounter
--- OUTSIDE RECORDS SUMMARY | 2022-02-02 09:13 | XMS_ITS | Encounter Summary ---
:1965 Author Organization [facility] Address [address] [place] [address] Care Team Providers Name Role Phone Vanda Guerrero MD Primary Care Provider [phone] Vanda Guerrero MD Unavailable Reason for Visit Reason Onset Date Comments Procedure 06/29/2017 cervical facets vs. FABIAN Encounter Details Date Type Department Care Team Description 06/29/2017 Telephone [facility] Pain Management Procedu re (cervical Pain Management Program, [facility] facets vs. FABIAN) [address] [place] [address] Social History Tobacco Use Types [...] How often do you attend pentecostal or taoism Patient refused 08/08/2019 services? Do you belong to any clubs or organizations such as [employer] 08/08/2019 pentecostal groups, unions, fraternal or athletic [...] be done at which interventional clinic site? [facility] Procedure ordered by Rosalia Main Procedure ordered? [...] do NOT schedule and route to pool player Is an special delivery clerk needed? No Patient has a drive home? (mandatory) YES: Is patient taking any blood thinners (plavix, coumadin, jantoven, warfarin, heparin, pradaxa or dabigatran )? No If hold needed, do NOT schedule, route to pool player Is patient taking any aspirin products? Yes - Pt takes 81 mg daily; instructed to hold 6 day(s) prior to procedure. ?? If more than 325mg/day do NOT schedule; route to pool player ?? For CERVICAL procedures, hold all aspirin [...] do NOT schedule and route to pool player Are you able to get on and off an exam table with minimal or no assistance? Yes If NO, do NOT schedule and route to pool player Are you able to roll over and lay on your stomach with minimal or no assistance? Yes If NO, do NOT schedule and route to pool player Any allergies to contrast dye, iodine, shellfish, or numbing and steroid medications? No If YES, route to pool player AND add allergy information to appointment notes [...] years? Yes ?? Was MRI done at [facility]? Yes ?? If not, where was it done? N/A ?? If MRI was not done at [facility], [facility] or [facility] do NOT schedule and route to [...] the patient have any questions? RAJENDRA Guevara [facility] ORT BAGGAGE SCREENER documented in this encounter Plan of Treatment Not on filedocumented as of this encounter Visit Diagnoses Not on filedocumented in this encounter Additional Health Concerns Assessment Noted Time PHQ-9 Depression Total Score: 12 06/12/2017 1:02 PM CS T documented as of this encounter Care Teams Inspector And Hand Packager Relationship Specialty Start Date End Date Vanda Guerrero MD PCP - General Internal Medicine 04/08/15 01/08/19 [address] [facility] [place] [address] Vanda Guerrero MD PCP - Assigned PCP 07/24/16 06/15/18 [address] [facility] [place] [address] documented as of this encounter
--- OUTSIDE RECORDS SUMMARY | 2022-02-02 09:13 | XMS_ITS | Encounter Summary ---
:1965 Author Organization [place] Address [address] [place] [address] Care Team Providers Name Role Phone Vanda Guerrero MD Primary Care Provider [phone] Vanda Guerrero MD Unavailable Reason for Visit Reason Comments Medication Refill DULoxetine (CYMBALTA) 30 MG EC capsule Encounter Details Date Type Department Care Team Description 05/14/2017 Refill [facility] Vanda Guerrero M edication Refill Clinic Pino SALDANA (DULoxetine (CYMBALTA) [address] [place] [address] [facility] 30 MG EC capsule) [facility] [address] [place] [address] [place] [address] [phone] Social History Tobacco Use Types Packs/Day Years [...] How often do you attend lutheran or sabianism Patient refused 08/08/2019 services? Do [...] in past 12 months Prescription approved per [facility] Refill Protocol. Kirsten Casillas, highway technician Nurse COORDINATOR Telephone Encounter - Marisa Matthew - 05/14/2017 7:32 AM CST YOSELIN 09/25/2016 COORDINATOR documented in this encounter Plan of Treatment Not on filedocumented as of this encounter Visit Diagnoses Diagnosis Fibromyalgia Mylagia and myositis, unspecified documented in this encounter Additional Health Concerns Assessment Noted Time PHQ-9 Depression Total Score: 9 10/12/2016 7:16 AM CDT documented as of this encounter Care Teams Continuous Improvement Facilitator Relationship Specialty Start Date End Date Vanda Guerrero MD PCP - General Internal Medicine 04/08/15 01/08/[address] [place] [address] [place] [address] Vanda Guerrero MD PCP - Assigned PCP 07/24/16 06/15/[address] [place] [address] [place] [address] documented as of this encounter
--- OUTSIDE RECORDS SUMMARY | 2022-02-02 09:13 | XMS_ITS | Encounter Summary ---
:1965 Author Organization [facility] Address [address] [place] [address] Care Team Providers Name Role Phone Vanda Guerrero MD Primary Care Provider [phone] Vanda Guerrero MD Unavailable Reason for Visit Reason Comments Medication Refill blood glucose monitoring (ON E TOUCH ULTRA) test strip (Discontinued) Encounter Details Date Type Department Care Team Description 09/22/2017 Refill [facility] Vanda Guerrero M edication Refill Clinic Pino SALDANA (blood glucose [address] [place] 3305 [facility] monit oring (ONE TOUCH [facility] [address] [facility] [address] ULTRA) test strip [address] [place] [address] (Discontinued)) [place] [phone] Social History Tobacco Use Types Packs/Day Years [...] How often do you attend catholic or temple Patient refused 08/08/2019 services? Do [...] 09/25/2017 9:58 AM CDT Prescription approved [facility] Refill Protocol. Telephone Encounter - Efren Roldan [...] documented as of this encounter Care Teams Market Research Executive Relationship Specialty Start Date End Date Vanda Guerrero MD PCP - General Internal Medicine 04/08/15 01/08/[address] [place] [address] [place] [address] Vanda Guerrero MD PCP - Assigned PCP 07/24/16 06/15/[address] [place] [address] [place] [address] documented as of this encounter
--- OUTSIDE RECORDS SUMMARY | 2022-02-02 09:13 | XMS_ITS | Encounter Summary ---
:1965 Author Organization [facility] Address [facility] [place] [address] Care Team Providers Name Role Phone Vanda Guerrero MD Primary Care Provider [phone] Vanda Guerrero MD Unavailable Reason for Visit Diagnostic Imaging XR - Closed Specialty Diagnoses / Procedures Referred By Contact Refer red To Contact Diagnoses Cervical facet joint syndrome Jim Wang, Procedures XR Cervical/Thoracic Epidural Inj [address] [place] [address] Referral ID Status Reason Start Date Expiration Date Visits Requ ested Visits Authorized [id number] Closed 07/09/2017 07/09/2018 1 1 Encounter Details Date Type Department Care Team Description 07/10/2017 Radiant Appointment [facility] Jl Wang vical facet Clinic [place] Jim joint synd shola Pain Management MD [place] [address] [address] [address] [place] [address] [place] [phone] [address] (Work) [phone] Social History Tobacco Use Types Packs/Day Years [...] How often do you attend rastafarian or shinto Patient refused 08/08/2019 services? Do you belong to any clubs or organizations such as No 08/08/2019 rastafarian groups, Disconnects, fraternal or athletic groups, or school groups? [...] Cervical facet joint Results for this CERVICAL/THORACIC DOWEL INSERTING MACHINE OPERATOR syndrome procedure are in EPIDURAL INJ INCL the result s IMAGING section. documented in this encounter Results XR Cervical/Thoracic Epidural Inj (07/10/2017 10:17 AM DOWEL INSERTING MACHINE OPERATOR) Specimen (Source) Anatomical Location Collection Method / Collectio n Time Received Time / Laterality Volume Narrative Rosangela Posada - 07/10/2017 10:43 AM DOWEL INSERTING MACHINE OPERATOR This exam was marked as non-reportable because it will not be read by a radiologist or a [facility] non-radiologis t provider. Jim Wang MD IMG DIAGNOSTIC IMAGING ORD ERABLES documented in this encounter Visit Diagnoses Diagnosis Cervical facet joint syndrome Other symptoms referable to back documented in this encounter Administered Medications Inactive Administered Medications - up to 3 most recent administrations Medication Order MAR Action Action Date Dose Rate Site iohexol (OMNIPAQUE) 300 mg/mL Given by Other 07/10/2017 10:42 AM DOWEL INSERTING MACHINE OPERATOR 1 mL injection 10 mL 10 mL, EPIDURAL, ONCE, On 07/10/17 at 1030, For 1 dose documented in this encounter Additional Health Concerns Assessment Noted Time PHQ-9 Depression Total Score: 12 06/12/2017 1:02 PM CS T documented as of this encounter Care Teams Platinum Smith Relationship Specialty Start Date End Date Vanda Guerrero MD PCP - General Internal Medicine 04/08/15 01/08/[address] [place] [address] [place] [address] Vanda Guerrero MD PCP - Assigned PCP 07/24/16 06/15/[address] [place] [address] [place] [address] documented as of this encounter
--- OUTSIDE RECORDS SUMMARY | 2022-02-02 09:13 | XMS_ITS | Encounter Summary ---
:1965 Author Organization [place] Address [facility] [place] [address] Care Team Providers Name Role Phone Vanda Guerrero MD Primary Care Provider [phone] Vanda Guerrero MD Unavailable JeanaNoreen girard CONVERSION DEVELOPER K 9 POLICE OFFICER Unavailable [phone] JeanaNoreen girard CONVERSION DEVELOPER K 9 POLICE OFFICER Unavailable [phone] JeanaNoreen girard CONVERSION DEVELOPER K 9 POLICE OFFICER Primary Care Provider [phone] Kalyan Galvan Unavailable Unavailable Lashae Trevino [facility] Unavailable [phone] Eduardo Sharma MD Unavailable Rios Monteiro MD Unavailable Marcelo Artis-C Unavailable [phone] Rodrigo Man-C Unavailable [phone] Reason for Visit Reason Onset Date Comments Patient/info Update 07/18/2017 post C7-T1 interlami brown epidural steroid injection Encounter Details Date Type Department Care Team Description 07/18/2017 Telephone [facility] Pain Jim Wang Patient/info Update Management Taylor Taylor MD (post C7-T1 [address] [facility] interlaminar epidural [address] [place] [address] steroid injection ) [place] [address] [phone] Social History Tobacco Use Types Packs/Day Years [...] How often do you attend amish or congregational Patient refused 08/08/2019 services? Do [...] pt should call the nurse line at [phone]. IR MECHANIC documented in this encounter Plan of Treatment Not on filedocumented as of this encounter Visit Diagnoses Not on filedocumented in this encounter Additional Health Concerns Infection Onset Date Last Indicated Resolved Time Rule Out COVID-08/25/2020 08/25/2020 08/26/2020 3:2 3 PM CDT Assessment Noted Time PHQ-9 Depression Total Score: 12 06/12/2017 1:02 PM CS T documented as of this encounter Care Teams Yard Foreman Relationship Specialty Start Date End Date Vanda Guerrero, PCP - General Internal Medicine 04/08/15 [facility] [place] [address] Vanda Guerrero, PCP - Assigned PCP 07/24/16 06/15/18 MD Vargas [facility] [place] [address] [place] PCP - Assigned PCP 06/16/18 08/13/18 SEAN Haley CNP [facility] [place] [address] [place] PCP - General Nurse Practitioner 01/09/19 12/12/21 SEAN Haley K 9 POLICE OFFICER [address] [facility] [place] [address] [place] Assigned PCP 06/16/18 SEAN Haley K 9 POLICE OFFICER [address] [facility] [place] [address] Kalyan Galvan Personal Advocate & 08/08/19 Liaison (PAL) Lashae Trevino Pharmacist Pharmacist 10/14/19 12/01/20 [facility] [address] [facility] [address] [place], [place] [phone] Eduardo Sharma MD Assigned Sleep Provider 04/02/20 05/07/21 [address] [place] [id number] Rios Monteiro MD Assigned Musculoskeletal 04/02/20 08/24/[address] Provider [address] [place], [place] [address] Marcelo Artis Assigned Musculoskeletal 08/25/20 08/20/21 MIKAYLA Nuno Provider [address] [place], [place] [address] Rodirgo Man Assigned Surgical 08/25/2011/27 MIKAYLA Lacy Provider [address] [place] [id number] documented as of this encounter
--- OUTSIDE RECORDS SUMMARY | 2022-02-02 09:13 | XMS_ITS | Encounter Summary ---
:1965 Author Organization [place] Address [address] [place] [address] Care Team Providers Name Role Phone Vanda Guerrero MD Primary Care Provider [phone] Vanda Guerrero MD Unavailable Reason for Referral Diagnostic Imaging MRI - Closed Specialty Diagnoses / Procedures Referred By Contact Refer red To Contact Radiology. Diagnoses Rosalia Pagan APRN Mri Procedures MR Cervical Spine w/o Contrast EPIC MANAGER [address] [facility] [place], [place] [address] [place] [address] [address] [place] [address] Referral ID Status Reason Start Date Expiration Date Visits Requ ested Visits Authorized [id number] Closed 06/27/2017 06/27/2018 1 1 ADVISER Reason for Visit Diagnostic Imaging MRI - Closed Specialty Diagnoses / Procedures Referred By Contact Refer red To Contact Radiology. Diagnoses Rosalia Pagan APRN Mri Procedures MR Cervical Spine w/o Contrast EPIC MANAGER [address] [facility] [place], [place] [address] [place] [address] [address] [place] [address] Referral ID Status Reason Start Date Expiration Date Visits Requ ested Visits Authorized [id number] Closed 06/27/2017 06/27/2018 1 1 Encounter Details Date Type Department Care Team Description 06/28/2017 Hospital Encounter [facility] Angella Main, Cervicalgia Imaging ACCOUNTS RECEIVABLE ANALYST EPIC MANAGER [address] [facility] [place], [place] [address] [facility] [address] [address] [place] [address] (Wo rk) Social History Tobacco Use Types [...] How often do you attend mandaeism or restorationist Patient refused 08/08/2019 services? Do [...] capsule 8 capsule 0 017 01/02/2019 D3) 93012 UNITS (50,000 Units) by capsuleIndications: mouth once [...] or female climacteric states fluticasone (FLONASE) 50 [place] 1-2 sprays 3 Bottle 3 06/1208/07/2019 MCG/ACT [...] Cervicalgia Resu lts for this W/O CONTRAST FOOD ADVISER procedure are i n the results section. documented in this encounter Results MR Cervical Spine w/o Contrast (06/28/2017 1:36 PM FOOD ADVISER) Anatomical Region Laterality Modality Spine, SUBRAD MR NEURO, UMP MR SPINE, RAD MR Magnetic Resonance Specimen (Source) Anatomical Location Collection Method / Collectio n Time Received Time / Laterality Volume Impressions 06/28/2017 2:37 PM FOOD ADVISER IMPRESSION: ?? 1. Anterior fusion at C5-C6 [...] MILAGROS JC MD Narrative 06/28/2017 2:37 PM FOOD ADVISER MRI CERVICAL SPINE WITHOUT CONTRAST June 28, [...] is associated bone marrow edema in the sahyy cent articular processes. This is best seen [...] level. MILAGROS JC MD Rosalia Angeles Etelvina ACCOUNTS RECEIVABLE ANALYST EPIC MANAGER IMG MRI ORDERABLES documented in this encounter Visit Diagnoses Diagnosis Cervicalgia documented in this encounter Additional Health Concerns Assessment Noted Time PHQ-9 Depression Total Score: 12 06/12/2017 1:02 PM CS T documented as of this encounter Care Teams Seo Coordinator Relationship Specialty Start Date End Date Vanda Guerrero MD PCP - General Internal Medicine 04/08/15 01/08/19 [address] [facility] [place] [phone] Vanda Guerrero MD PCP - Assigned PCP 07/24/16 06/15/18 [address] [facility] [place] [phone] documented as of this encounter
--- OUTSIDE RECORDS SUMMARY | 2022-02-02 09:13 | XMS_ITS | Encounter Summary ---
:1965 Author Organization [place] Address [address] [place] [address] Care Team Providers Name Role Phone Vanda Guerrero MD Primary Care Provider [phone] Vanda Guerrero MD Unavailable Reason for Visit Reason Comments Medication Refill citalopram (CELEXA) 20 MG ta blet-DUPLICATE Encounter Details Date Type Department Care Team Description 06/27/2017 Refill [facility] Vanda Guerrero M edication Refill Clinic Pino SALDANA (citalopram (CELEXA) 20 [address] [place] 3305 [facility] MG ta blet-DUPLICATE) [facility] [address] [place] [address] [place] [phone] Social History Tobacco Use Types Packs/Day Years [...] How often do you attend congregation or quaker Patient refused 08/08/2019 services? Do [...] CST Sent back as duplicate. Kirsten Casillas, baseball scout Nurse R BRICKLAYER Telephone Encounter - Marisa Matthew - 06/27/2017 7:59 AM CST Duplicate. citalopram (CELEXA) 20 MG tablet was filled on 06/12/2017, qty 135 with 3 refills. R BRICKLAYER documented in this encounter Plan of Treatment Not on filedocumented as of this encounter Visit Diagnoses Diagnosis Anxiety Anxiety state, unspecified documented in this encounter Additional Health Concerns Assessment Noted Time PHQ-9 Depression Total Score: 12 06/12/2017 1:02 PM CS T documented as of this encounter Care Teams Automation And Controls Manager Relationship Specialty Start Date End Date Vanda Guerrero MD PCP - General Internal Medicine 04/08/15 01/08/[address] [facility] [address] [place], [place] [phone] Vanda Guerrero MD PCP - Assigned PCP 07/24/16 06/15/[address] [facility] [place] [address] documented as of this encounter
--- OUTSIDE RECORDS SUMMARY | 2022-02-02 09:13 | XMS_ITS | Encounter Summary ---
:1965 Author Organization [place] Address [address] [place] [address] Care Team Providers Name Role Phone Vanda Guerrero MD Primary Care Provider [phone] Vanda Guerrero MD Unavailable Reason for Visit Diagnostic Imaging XR - Closed Specialty Diagnoses / Procedures Referred By Contact Refer red To Contact Diagnoses Cervicalgia Rosalia Main APRN Procedures XR Cervical Spine 2/3 Views [facility] [address] [place] [address] Referral ID Status Reason Start Date Expiration Date Visits Requ ested Visits Authorized [id number] Closed 06/27/2017 06/27/2018 1 1 Encounter Details Date Type Department Care Team Description 06/27/2017 Radiant Appointment [facility] Sports Rosalia Main Cervicalbola and Orthopedic Care SEAN Angeles CN P [facility] [address] [place] [address] [place] [address] [place], [place] [phone] [address] Social History Tobacco Use Types Packs/Day Years [...] How often do you attend confucianist or yazdanism Patient refused 08/08/2019 services? Do you belong to any clubs or organizations such as No 08/08/2019 confucianist groups, [employer], fraternal or athletic groups, or school groups? [...] Cervicalgia Res ults for this 2/3 VIEWS DRAWING PRESS OPERATOR procedure are i n the results section. documented in this encounter Results XR Cervical Spine 2/3 Views (06/27/2017 10:30 AM DRAWING PRESS OPERATOR) Anatomical Region Laterality Modality Spine Computed Radiography Specimen (Source) Anatomical Location Collection Method / Collectio n Time Received Time / Laterality Volume Impressions 06/27/2017 4:33 PM DRAWING PRESS OPERATOR IMPRESSION: Flexion and extension lateral views only. 1 mm anterolisthesis C2 on C3 and C4 on C5. T hese levels reduce with extension. Anterior interbody fusion C5- C7 appears solid with normal alignment. Degenerative disc space narro wing C3-4. No acute bony or soft tissue abnormality in the lateral v iew. ROHAN PINK MD Narrative 06/27/2017 4:33 PM DRAWING PRESS OPERATOR CERVICAL SPINE TWO - THREE VIEWS 06/27/2017 [...] iew. ROHAN PINK MD Rosalia Main APRN MARINE HABITAT RESOURCE SPECIALIST IMG DIAGNOSTIC IMAGING DAMASO MIRAMONTES documented in this encounter Visit Diagnoses Diagnosis Cervicalgia documented in this encounter Additional Health Concerns Assessment Noted Time PHQ-9 Depression Total Score: 12 06/12/2017 1:02 PM CS T documented as of this encounter Care Teams Kettleman Relationship Specialty Start Date End Date Vanda Guerrero MD PCP - General Internal Medicine 04/08/15 01/08/19 [address] [facility] [place] [phone] Vanda Guerrero MD PCP - Assigned PCP 07/24/16 06/15/18 [address]122 [facility] [place] [id number] documented as of this encounter
--- OUTSIDE RECORDS SUMMARY | 2022-02-02 09:13 | XMS_ITS | Encounter Summary ---
:1965 Author Organization [place] Address [address] [place] [address] Care Team Providers Name Role Phone Vanda Guerrero MD Primary Care Provider [phone] Vanda Guerrero MD Unavailable Reason for Referral Diagnostic Imaging Ultrasound - Closed Specialty Diagnoses / Procedures Referred By Contact Refer red To Contact Radiology. Diagnoses Alkaline phosphatase elevation Vanda Guerrero MD Ultrasound Rscc Procedures US Abdomen Limited [address] [facility] [id number] [place] [address] [address] [address] Phone: Fax: Referral ID Status Reason Start Date Expiration Date Visits Requ ested Visits Authorized [id number] Closed 06/15/2017 06/15/2018 1 1 [facility] Reason for Visit Diagnostic Imaging Ultrasound - Closed Specialty Diagnoses / Procedures Referred By Contact Refer red To Contact Radiology. Diagnoses Alkaline phosphatase elevation Vanda Guerrero MD Ultrasound Rscc Procedures US Abdomen Limited [address] [facility] [address] [facility] [address] [address] Phone: Fax: Referral ID Status Reason Start Date Expiration Date Visits Requ ested Visits Authorized [id number] Closed 06/15/2017 06/15/2018 1 1 Encounter Details Date Type Department Care Team Description 06/21/2017 Hospital Encounter [facility]icia Toribio MD [facility] Imaging [address] [facility] [address] [facility] [address] [place] [address] [place], [place] [phone] [address] (Work) [phone] Social History Tobacco Use Types Packs/Day Years [...] often do you attend latter day or cheondoism Patient refused 08/08/2019 services? Do [...] capsule 8 capsule 0 017 01/02/2019 D3) 61362 UNITS (50,000 Units) by capsuleIndications: mouth once [...] or female climacteric states fluticasone (FLONASE) [address] [place] 1-2 sprays 3 Bottle 3 06/1208/07/2019 MCG/ACT [...] AM Alkaline phosph atase Results for this PLANT WORKER elevation procedure are i n the results section. documented in this encounter Results US Abdomen Limited (06/21/2017 10:11 AM PLANT WORKER) Anatomical Region Laterality Modality Abdomen/Pelvis Ultrasound Specimen (Source) Anatomical Location Collection Method / Collectio n Time Received Time / Laterality Volume Impressions 06/21/2017 10:49 AM PLANT WORKER IMPRESSION: ??Fatty infiltration of the liver. No gallstones or bile duct dilatation. DWIGHT LOZA MD Narrative 06/21/2017 10:49 AM PLANT WORKER ULTRASOUND ABDOMEN LIMITED 06/21/2017 10:11 AM HISTORY: [...] documented as of this encounter Care Teams Site Technician Relationship Specialty Start Date End Date Vanda Guerrero MD PCP - General Internal Medicine 04/08/15 01/08/[address] [place] [address] [place] [address] Vanda Guerrero MD PCP - Assigned PCP 07/24/16 06/15/[address] [place] [address] [place] [address] documented as of this encounter
--- OUTSIDE RECORDS SUMMARY | 2022-02-02 09:13 | XMS_ITS | Encounter Summary ---
:1965 Author Organization [place] Address [address] [place] [address] Care Team Providers Name Role Phone Vanda Guerrero MD Primary Care Provider [phone] Vanda Guerrero MD Unavailable Reason for Visit Reason Comments Medication Refill tiZANidine (ZANAFLEX) 4 MG t ablet Encounter Details Date Type Department Care Team Description 05/05/2017 Refill [facility] Vanda Guerrero M edication Refill Clinic Pino SALDANA (tiZANidine (ZANAFLEX) [address] [facility] 4 MG tablet) [facility] [address] [place] [address] [place] [address] [phone] Social History Tobacco Use Types Packs/Day Years [...] How often do you attend worship or scientology Patient refused 08/08/2019 services? Do [...] on the [facility] refill protocol Kirsten Casillas, mortgage field inspector Nurse MENT CONTROL COORDINATOR Telephone Encounter - Efren Pryor - 05/06/2017 7:37 PM CST YOSELIN: 12/25/2016 MENT CONTROL COORDINATOR documented in this encounter Plan of Treatment Not on filedocumented as of this encounter Visit Diagnoses Diagnosis Cervicalgia History of fusion of cervical spine Arthrodesis status History of lumbar fusion documented in this encounter Additional Health Concerns Assessment Noted Time PHQ-9 Depression Total Score: 9 10/12/2016 7:16 AM CDT documented as of this encounter Care Teams Distributor Cleaner Relationship Specialty Start Date End Date Vanda Guerrero MD PCP - General Internal Medicine 04/08/15 01/08/19 [address] [facility] [address] [place], [place] [id number] Vanda Guerrero MD PCP - Assigned PCP 07/24/16 06/15/18 [address] [facility] [place] [address] documented as of this encounter
--- OUTSIDE RECORDS SUMMARY | 2022-02-02 09:13 | XMS_ITS | Encounter Summary ---
:1965 Author Organization [place] Address [address] [place] [address] Care Team Providers Name Role Phone Vanda Guerrero MD Primary Care Provider [phone] Vanda Guerrero MD Unavailable Encounter Details Date Type Department Care Team Description 07/18/2017 Therapy Visit [facility] Serena Blount (Primary Dx); CHIRO J, DC Thoracic spine pain; [address] [facility] Cervical segment dysfunction [address] [facility] 300 [address] [place] [id number] Social History Tobacco Use Types Packs/Day Years [...] How often do you attend hindu or latter-day Patient refused 08/08/2019 services? Do [...] to feel looser post manipulation Procedures: CMT: 69672 Chiropractic manipulative treatment 1-2 regions performed Occiput: Gentle distraction-x10, C0, Supine Cervical: Gentle PtoA mob'sC4, T2, Supine NO rotary manipulation due to fusion C5-C7 Activator to right first rib Modalities: 35368: Acupuncture, for 15 minutes: Points: For neck [...] Follow-up: Return to care in one week. OSITY TESTER documented in this encounter Plan of Treatment Not on filedocumented as of this encounter Procedures Procedure Name Priority Date/Time Associated Diagnosis Comme nts ACUPUNCTURE, 1+ Routine 07/18/2017 1:03 PM Cervicalgi a NEEDLES, W/O ELECTRICAL VISCOSITY TESTER Thoracic spine pain STIM; INIT 15 MIN Cervical segment PERSONAL CONTACT dysfunction ZC CHIROPRAC Routine 07/18/2017 1:03 PM Cervicalgia MANIP,SPINAL,1-2 VISCOSITY TESTER Thoracic spine pain REGIONS Cervical segment dysfunction documented in this encounter Visit Diagnoses Diagnosis Cervicalgia - Primary Thoracic spine pain Pain in thoracic spine Cervical segment dysfunction Nonallopathic lesion of cervical region, not elsewhere classified documented in this encounter Additional Health Concerns Assessment Noted Time PHQ-9 Depression Total Score: 12 06/12/2017 1:02 PM CS T documented as of this encounter Care Teams Pain Management Physician Relationship Specialty Start Date End Date Vanda Guerrero MD PCP - General Internal Medicine 04/08/15 01/08/19 [address] [facility] [place] [address] Vanda Guerrero MD PCP - Assigned PCP 07/24/16 06/15/[address] [place] [address] [place] [address] documented as of this encounter
--- OUTSIDE RECORDS SUMMARY | 2022-02-02 09:13 | XMS_ITS | Encounter Summary ---
:1965 Author Organization [facility] Address [address] [place] [address] Care Team Providers Name Role Phone Vanda Guerrero MD Primary Care Provider [phone] Vanda Guerrero MD Unavailable JeanaNoreen girard DELIVERY AGENT HEELER Unavailable [phone] JeanaNorene girard DELIVERY AGENT HEELER Unavailable [phone] JeanaNoreen girard DELIVERY AGENT HEELER Primary Care Provider [phone] Kalyan Galvan Unavailable Unavailable Lashae Trevino [facility] Unavailable [phone] Eduardo Sharma MD Unavailable Rios Monteiro MD Unavailable Marcelo Artis-C Unavailable [phone] Rodrigo Man-C Unavailable [phone] Reason for Visit Reason Comments Medication Refill ONETOUCH ULTRA test strip; s imvastatin (ZOCOR) 20 MG tablet Encounter Details Date Type Department Care Team Description 12/21/2017 Refill [facility] Vanda Guerrero M edication Refill Clinic [place]ino SALDANA (ONETOUCH ULTRA test [address] [place] 3[address] [facility] strip ; sim[facility] (ZOCOR) 20 MG tablet) [address] [place] [address] [place] [phone] Social History Tobacco Use Types Packs/Day Years [...] How often do you attend mandaeism or temple Patient refused 08/08/2019 services? Do [...] 12/25/2017 10:56 AM CDT Prescription approved per [facility] Refill Protocol. Day Greene RN, BSN Telephone [...] documented as of this encounter Care Teams Cash Applications Clerk Relationship Specialty Start Date End Date Vanda Guerrero, PCP - General Internal Medicine 04/08/15 01/08/[address] [place] [address] [place] [address] Vanda Guerrero, PCP - Assigned PCP 07/24/16 [facility] [place] [address] [place] PCP - Assigned PCP 06/16/18 08/13/18 SEAN Haley HEELER [facility] [place] [address] [place] PCP - General Nurse Practitioner 01/09/19 12/12/21 SEAN Haley HEELER [facility] [place] [address] [place] Assigned PCP 06/16/18 SEAN Haley HEELER [address] [place] [address] [place] [phone] Kalyan Galvan Personal Advocate & 08/08/19 Liaison (PAL) Lashae Trevino Pharmacist Pharmacist 10/14/19 12/01/20 [facility] [address] [facility] [place] [address] Eduardo Sharma MD Assigned Sleep Provider 04/02/20 05/07/[address] [place] [id number] Rios Monteiro MD Assigned Musculoskeletal 04/02/20 08/24/[address] Provider [address] [place], [place] [address] Marcelo Artis Assigned Musculoskeletal 08/25/20 08/20/21 MIKAYLA Nuno Provider [address] [place], [place] [address] Rodrigo Man Assigned Surgical 08/25/2011/27 MIKAYLA Lacy Provider [address] [place] [id number] documented as of this encounter
--- OUTSIDE RECORDS SUMMARY | 2022-02-02 09:13 | XMS_ITS | Encounter Summary ---
:1965 Author Organization [place] Address [address] [place] [address] Care Team Providers Name Role Phone Vanda Guerrero MD Primary Care Provider [phone] Vanda Guerrero MD Unavailable Reason for Visit Reason Onset Date Comments Refill Request 02/15/2018 topiramate (TOPAMAX) 50 MG tablet Refill Request 02/15/2018 citalopram (CELEXA) 20 MG tablet Encounter Details Date Type Department Care Team Description 02/15/[address] [facility] Vanda Guerrero R efill Request Clinic [place] SALDANA (topiramate (TOPAMAX) [address] [place] [address] [facility] 50 MG tablet); Refill [facility] [address] Request (citalopram [address] [place] [address] (CELEXA) 20 MG tablet) [place] [phone] Social History Tobacco Use Types Packs/Day Years [...] How often do you attend islam or spiritism Patient refused 08/08/2019 services? Do [...] of protocol range. Thea Gonzalez RN BSN [facility] [phone] Telephone Encounter - Liya Gonzalez RN - 02/17/2018 9:25 PM CDT phq9 sent via SimpliVity. Topiramate dx is Fibromyalgia and obesity Thea Gonzalez RN BSN [facility] [phone] Telephone Encounter - Efren Pryor - 02/15/2018 [...] HCT 38.1 PLT 229 For G[facility] ONLY: [id number] = WBC, WUAF433 = RBC Passed - Normal ALT or [...] as of this encounter Care Teams Wet Washer Machine Relationship Specialty Start Date End Date Vanda Guerrero MD PCP - General Internal Medicine 04/08/15 01/08/19 [address] [facility] [place] [address] Vanda Guerrero MD PCP - Assigned PCP 07/24/16 06/15/18 [address] [facility] [place] [address] documented as of this encounter
--- OUTSIDE RECORDS SUMMARY | 2022-02-02 09:13 | XMS_ITS | Encounter Summary ---
:[address] [place] Address [address] [place] [address] Care Team Providers Name Role Phone Vanda Guerrero MD Primary Care Provider [phone] Vanda Guerrero MD Unavailable Reason for Visit Reason Comments Medication Refill SUMAtriptan (IMITREX) 25 MG tablet Encounter Details Date Type Department Care Team Description 07/13/2017 Refill [facility] Vanda Guerrero M edication Refill Clinic [place] [place]NA (SUMAtriptan (IMITREX) [address] [place] [address] [facility] 25 MG tablet) [facility] [address] [place] [address] [place] [address] [phone] Social History Tobacco Use Types Packs/Day Years [...] How often do you attend mu-ism or presybeterian Patient refused 08/08/2019 services? Do [...] Mimi Roberts RN - 07/13/2017 12:25 PM CARD PLAYER BP Readings from Last 3 Encounters: 07/10/17 118/72 06/27/17 124/77 06/12/17 116/72 Prescription approved per [facility] Refill Protocol. Kassie Roberts RN PLAYER Telephone Encounter - Kartik Javier - 07/13/2017 [...] no refill protocol information for this order PLAYER documented in this encounter Plan of Treatment Not on filedocumented as of this encounter Visit Diagnoses Diagnosis Migraine without status migrainosus, not intractable, unspecified migraine type documented in this encounter Additional Health Concerns Assessment Noted Time PHQ-9 Depression Total Score: 12 06/12/2017 1:02 PM CS T documented as of this encounter Care Teams Machine Adjuster Leader Relationship Specialty Start Date End Date Vanda Guerrero MD PCP - General Internal Medicine 04/08/15 01/08/19 [address] [facility] [place] [address] Vanda Guerrero MD PCP - Assigned PCP 07/24/16 06/15/18 [address] [facility] [place] [address] documented as of this encounter
--- OUTSIDE RECORDS SUMMARY | 2022-02-02 09:13 | XMS_ITS | Encounter Summary ---
:1965 Author Organization [facility] Address [address] [place] [address] Care Team Providers Name Role Phone Vanda Guerrero MD Primary Care Provider [phone] Vanda Guerrero MD Unavailable Reason for Visit Reason Comments Medication Refill metFORMIN (GLUCOPHAGE) 500 M G tablet Encounter Details Date Type Department Care Team Description 12/08/2017 Refill [facility] Vanda Guerrero M edication Refill Clinic [place] (metFORMIN (GLUCOPHAGE) [address] [place] 3305 [facility] 500 M G tablet) [facility] [address] [place] [address] [place] [address] [phone] Social History Tobacco Use Types Packs/Day Years [...] How often do you attend scientologist or anabaptist Patient refused 08/08/2019 services? Do [...] month diabetes check Radha Manning RN -- [facility] Telephone Encounter - Kartik Javier - [...] documented as of this encounter Care Teams Funeral Home Location Manager Relationship Specialty Start Date End Date Vanda Guerrero MD PCP - General Internal Medicine 04/08/15 01/08/19 [address] [facility] [place] [address] Vanda Guerrero MD PCP - Assigned PCP 07/24/16 06/15/18 [address] [facility] [place] [address] documented as of this encounter
--- OUTSIDE RECORDS SUMMARY | 2022-02-02 09:13 | XMS_ITS | Encounter Summary ---
:1965 Author Organization [place] Address [address] [place] [address] Care Team Providers Name Role Phone Vanda Guerrero MD Primary Care Provider [phone] Vanda Guerrero MD Unavailable Reason for Visit Reason Comments Medication Refill [facility] 24 HOUR 10- 240 MG per 24 hr tablet Encounter Details Date Type Department Care Team Description 08/01/2017 Refill [facility] Vanda Guerrero M edication Refill [facility] [place] [place] LORATADINE-D 24 HOUR [address] [place] 3305 [facility] 10-24 0 MG per 24 hr [facility] [address] tablet) [address] [place] [address] [place] [phone] [phone] Social History Tobacco Use Types Packs/Day Years [...] How often do you attend mu-ism or episcopalian Patient refused 08/08/2019 services? Do [...] - Lori Weber - 08/06/2017 3:54 PM LOCAL ANNOUNCER Faxed RX to patients pharmacy. Lori Weber MA L ANNOUNCER Telephone Encounter - Vanda Guerrero MD - 08/06/2017 2:15 PM LOCAL ANNOUNCER Script printed, signed, and in station out basket. R L ANNOUNCER Telephone Encounter - Kirsten Casillas RN - 08/06/2017 1:44 PM CST Routing refill request to provider for review/approval because: Drug not on the [facility] refill protocol Kirsten Casillas, stock raiser Nurse L ANNOUNCER Telephone Encounter - Marisa Matthew - 08/01/2017 1:28 PM CST [facility] 24 HOUR 10-240 MG per 24 hr tablet Last Written Prescription Date: Last Fill Quantity: 90, # refills: 1 Last Office Visit: 06/12/2017 Future Office visit: Routing refill request to provider for review/approval because: Drug not on the [facility], P or [facility] refill protocol or controlled substance L ANNOUNCER documented in this encounter Plan of Treatment Not on filedocumented as of this encounter Visit Diagnoses Diagnosis Chronic seasonal allergic rhinitis, unsp ecified trigger documented in this encounter Additional Health Concerns Assessment Noted Time PHQ-9 Depression Total Score: 12 06/12/2017 1:02 PM CS T documented as of this encounter Care Teams Certified Peer Specialist Relationship Specialty Start Date End Date Vanda Guerrero MD PCP - General Internal Medicine 04/08/15 01/08/[address] [place] [address] [place] [address] Vanda Guerrero MD PCP - Assigned PCP 07/24/16 06/15/[address] [place] [address] [place] [address] documented as of this encounter
--- OUTSIDE RECORDS SUMMARY | 2022-02-02 09:13 | XMS_ITS | Encounter Summary ---
:1965 Author Organization [facility] Address [facility] [place] [address] Care Team Providers Name Role Phone Vanda Guerrero MD Primary Care Provider [phone] Vanda Guerrero MD Unavailable Reason for Referral - Closed Specialty Diagnoses / Procedures Referred By Contact Refer red To Contact Diagnoses Cervical radiculopathy Jim Wang Procedures NO CHARGE ANDREEA Taylor MD [address] [place] [address] Referral ID Status Reason Start Date Expiration Date Visits Requ ested Visits Authorized [id number] Closed 07/10/2017 07/10/2018 1 1 CIDE SQUAD COMMANDING OFFICER Reason for Visit Reason Comments Pain - Closed Specialty Diagnoses / Procedures Referred By Contact Refer red To Contact Diagnoses Cervical facet joint syndrome Rosalia Main APRN FUND ACCOUNTING MANAGER [facility] [address] [place] [address] Referral ID Status Reason Start Date Expiration Date Visits Requ ested Visits Authorized [id number] Closed 06/29/2017 06/29/2018 1 1 Encounter Details Date Type Department Care Team Description 07/10/2017 Radiology [facility] Rosalia Main APRN FUND ACCOUNTING MANAGER [facility] [address] [place] [address] Cervical Injection Office Pain Management Jim Wang MD [address] [place], [place] [address] radiculopathy Visit [place] (Primary Dx) [address] [facility] [address] [place] [address] Social History Tobacco Use Types [...] How often do you attend confucianist or spiritism Patient refused 08/08/2019 services? Do [...] Comments Blood Pressure 118/72 07/10/2017 10:58 AM HOMICIDE SQUAD COMMANDING OFFICER Pulse 80 07/10/2017 10:58 AM HOMICIDE SQUAD COMMANDING OFFICER Temperature - - Respiratory Rate - - Oxygen Saturation 100% 07/10/2017 10:58 AM HOMICIDE SQUAD COMMANDING OFFICER Inhaled Oxygen Concentration - - Weight - - Height - - Body Mass Index - - documented in this encounter Patient Instructions Patient InstructionsSteeCara coley RN - 07/10/2017 10:15 AM CST [facility] Procedure Discharge Instructions Today you [...] pain center line during work hours at [phone] or on-call physician after hours at [phone]: -Fever over 100 degree F -Swelling, bleeding, redness, drainage, warmth at the injection site -Progressive weakness or numbness in your legs or arms -Loss of bowel or bladder function -Unusual headache that is not relieved by Tylenol or your regular headache medication -Unusual new onset of pain that is not improving Phone #s: Nurse triage line for general questions: [phone] CIDE SQUAD COMMANDING OFFICER documented in this encounter Progress Notes Jim Wang MD - 07/10/2017 10:15 AM CST [facility] - Procedure Note Date of Visit: 07/10/2017 Procedure performed: C7-T1 interlaminar epidural steroid injection with fluoroscopic guidance Diagnosis: Cervical spondylosis; Cervical radiculitis/radiculopathy Formula Maker: Jim Wang MD Anesthesia: none Indications: Megan [...] the patient was advised to contact the [facility] for any of the [...] for post-procedure evaluation. Jim WangMD Pain Management CIDE SQUAD COMMANDING OFFICER documented in this encounter Nursing Notes Sandy [...] oral steroids? NO Do you have a driver license agent? Yes Are you or ? NO Are the vital signs normal? Yes CIDE SQUAD COMMANDING OFFICER Cara Mcnulty RN - 07/10/2017 10:15 AM CST 22 gauge Peripheral IV inserted into left anticubital - attempts: 1 Cara MORALES-RN President & Ceo [facility] CIDE SQUAD COMMANDING OFFICER Cara Mcnulty RN - 07/10/2017 10:15 AM [...] patient home? Yes Signature/Title: Cara Mcnulty RN President & Ceo [facility] CIDE SQUAD COMMANDING OFFICER documented in this encounter Plan of Treatment Not on filedocumented as of this encounter Visit Diagnoses Diagnosis Cervical radiculopathy - Primary Brachial neuritis or radiculitis nos documented in this encounter Additional Health Concerns Assessment Noted Time PHQ-9 Depression Total Score: 12 06/12/2017 1:02 PM CS T documented as of this encounter Care Teams Vice President Industrial Relations Relationship Specialty Start Date End Date Vanda Guerrero MD PCP - General Internal Medicine 04/08/15 01/08/19 [address] [facility] [place] [phone] Vanda Guerrero MD PCP - Assigned PCP 07/24/16 06/15/18 [address] [facility] [place] [address] documented as of this encounter
--- OUTSIDE RECORDS SUMMARY | 2022-02-02 09:13 | XMS_ITS | Encounter Summary ---
:1965 Author Organization [place] Address [address] [place] [address] Care Team Providers Name Role Phone Vanda Guerrero MD Primary Care Provider [phone] Vanda Guerrero MD Unavailable Reason for Referral - Closed Specialty Diagnoses / Procedures Referred By Contact Refer red To Contact Diagnoses Cervical facet joint syndrome Rosalia Main, SEAN PACKAGING SALES REPRESENTATIVE [facility] [address] [place] [place] [address] Referral ID Status Reason Start Date Expiration Date Visits Requ ested Visits Authorized [id number] Closed 06/29/2017 06/29/2018 1 1 IT CASHIER Reason for Visit Reason Onset Date Comments Results 06/29/2017 Encounter Details Date Type Department Care Team Description 06/29/2017 Telephone [facility] Neurosurgery [place] Main, Results [facility] ASSOCIATE DATA SCIENTIST PACKAGING SALES REPRESENTATIVE [address] [facility] [address] [place] [address] [address] [place], [place] [address] (Wo rk) Social History [...] How often do you attend faith or jehovah's witness Patient refused 08/08/2019 services? [...] Main APRN CNP - 06/29/2017 2:11 PM CREDIT CASHIER Pt contacted with MRI results. Fusion solid. She was very concerned about her C1-2 and was told years ago there was something wrong. Her C1-2 per MRI is normal. She does have facet degeneration on the right. Recc. Injections and PT. She is open to this. Rosalia Main PACKAGING SALES REPRESENTATIVE [facility] [address] [place] [address]. [address] Tel. [phone] IT CASHIER documented in this encounter Plan of [...] documented as of this encounter Care Teams Egg Pasteurizer Relationship Specialty Start Date End Date Vanda Guerrero MD PCP - General Internal Medicine 04/08/15 01/08/[address] [place] [address] [place] [address] Vanda Guerrero MD PCP - Assigned PCP 07/24/16 06/15/[address] [place] [address] [place] [id number] documented as of this encounter
--- OUTSIDE RECORDS SUMMARY | 2022-02-02 09:13 | XMS_ITS | Encounter Summary ---
:1965 Author Organization [place] Address [address] [place] [address] Care Team Providers Name Role Phone Vanda Guerrero MD Primary Care Provider [phone] Vanda Guerrero MD Unavailable Reason for Visit Reason Onset Date Comments Patient Request for Note/Letter 12/19/2017 Encounter Details Date Type Department Care Team Description 12/19/2017 Telephone [facility] Vanda Guerrero Patient Request for Clinic Pino Toribio MD Note/Letter [address] [place] [address] [facility] [address] [place] [address] [place] [address] [phone] Social History Tobacco Use Types Packs/Day Years [...] How often do you attend holiness or caodaism Patient refused 08/08/2019 services? Do [...] and signed provider. Pt will pickup at help desk support downstairs. Telephone Encounter - Vanda Guerrero MD - 12/19/2017 3:04 PM CDT Letter printed, signed, and in station out basket or on MA/SCREED PERSON/RN desk Telephone Encounter - Lori Weber - [...] Sunday. Needs the letter ALLEN. (Company is [employer]) Detailed comments: Megan will supervisor picking crew when the letter is ready. Call her at below number when letter is ready. Phone Number Patient can be reached at: [phone] Best Time: Anytime Can we leave a [...] documented as of this encounter Care Teams Developer Trading Systems Relationship Specialty Start Date End Date Vanda Guerrero MD PCP - General Internal Medicine 04/08/15 01/08/[address] [place] [address] [place] [address] Vanda Guerrero MD PCP - Assigned PCP 07/24/16 06/15/[address] [place] [address] [place] [address] documented as of this encounter
--- OUTSIDE RECORDS SUMMARY | 2022-02-02 09:13 | XMS_ITS | Encounter Summary ---
:1965 Author Organization [place] Address [address] [place] [address] Care Team Providers Name Role Phone Vanda Guerrero MD Primary Care Provider [phone] Vanda Guerrero MD Unavailable Reason for Referral [facility] - Closed Specialty Diagnoses / Procedures Referred By Contact Refer red To Contact Diagnoses Rosalia Pagan APRN CNP [facility] [address] [place] [address] Referral ID Status Reason Start Date Expiration Date Visits Requ ested Visits Authorized [id number] Closed 06/27/2017 06/27/2018 1 1 AGE MANAGEMENT CONSULTANT Diagnostic Imaging MRI - Closed Specialty Diagnoses / Procedures Referred By Contact Refer red To Contact Radiology. Diagnoses Rosalia Pagan APRN Mri Procedures MR Cervical Spine w/o Contrast FIELD AUTO APPRAISER [address] [facility] [place], [place] [address] [address] [place] [address] Referral ID Status Reason Start Date Expiration Date Visits Requ ested Visits Authorized [id number] Closed 06/27/2017 06/27/2018 1 1 AGE MANAGEMENT CONSULTANT Diagnostic Imaging XR - Closed Specialty Diagnoses / Procedures Referred By Contact Refer red To Contact Diagnoses Cervicalgia Rosalia Main APRN Procedures XR Cervical Spine 2/3 Views [facility] [address] [place] [address] Referral ID Status Reason Start Date Expiration Date Visits Requ ested Visits Authorized [id number] Closed 06/27/2017 06/27/2018 1 1 AGE MANAGEMENT CONSULTANT Reason for Visit Reason Comments Neurologic Problem DDD, Cervical radiates down the right side into the right shoulder more than left down to the e lbow, patient has hand numbness and tingling at times weakness, has had previous surgery with Dr. Brandt in 2000 Encounter Details Date Type Department Care Team Description 06/27/2017 Office Visit [facility] Rosalia Main Cervical bola (Primary [facility] Neurosurgery SEAN [place] CN P Dx) [facility] [address] [facility] [address] [place] [address] [phone] Social History Tobacco Use Types Packs/Day Years [...] How often do you attend faith or yazidi Patient refused 08/08/2019 services? Do [...] Comments Blood Pressure 124/77 06/27/2017 10:03 AM STORAGE MANAGEMENT CONSULTANT Pulse 83 06/27/2017 10:03 AM STORAGE MANAGEMENT CONSULTANT Temperature - - Respiratory Rate - - Oxygen Saturation 97% 06/27/2017 10:03 AM STORAGE MANAGEMENT CONSULTANT Inhaled Oxygen Concentration - - Weight 90.7 kg (200 lb) 06/27/2017 10:03 AM STORAGE MANAGEMENT CONSULTANT Height 157.5 cm (5' 2) 06/27/2017 10:03 AM STORAGE MANAGEMENT CONSULTANT Body Mass Index 36.58 06/27/2017 10:03 AM STORAGE MANAGEMENT CONSULTANT documented in this encounter Patient Instructions Patient InstructionsSchmidtRosalia APRN FIELD AUTO APPRAISER - 06/27/2017 10:00 AM STORAGE MANAGEMENT CONSULTANT 1. Please call [facility] Radiology to have cervical MRI completed. Call [phone]. I will contact you with results. 2. Cervical xray today 3. Please schedule your auto care center manager with [facility] AGE MANAGEMENT CONSULTANT documented in this encounter Progress Notes Rosalia Main APRN CNP - 06/27/2017 10:[address] Raoul Danielson [facility] Neurosurgery Clinic Visit CC: neck and arm pain Primary care Provider: Vanda Guerrero Reason For Visit: I was asked by Dr. Guerrero to consult on the patient for cervical radicular pain. HPI: Megan Choi is a 52 year old female with cervical radicular pain. She notes that she hadC5-7 fusion in 2000 at [facility] [employer]. We are in the process of obtaining [...] TOUCH DELICA) lancets ??? cholecalciferol (VITAMIN D3) 42352 UNITS capsule ??? order for DME ??? [...] Relation Age of Onset ??? Cardiovascular Mother [place] age 72 ??? DIABETES Mother Type II ??? Hypertension Mother ??? Lipids Mother ??? Arthritis Mother OA ??? KIDNEY DISEASE Mother 70 ??? Cardiovascular Father [place] early 40s, subsequent bipass ??? Hypertension Father [...] notes that she hadC5-7fusion in 2000 at [facility] ([employer]). We are in the process of obtaining [...] to this. We will have her try auto care center manager as well through [facility]. She is open to this. Patient Instructions 1. Please call [facility] Radiology to have cervical MRI completed. Call [phone]. I will contact you with results. 2. Cervical xray today 3. Please schedule your auto care center manager with [facility] Main CNP [facility] [address] [place] [address] Pager [phone] AGE MANAGEMENT CONSULTANT documented in this encounter Plan of Treatment Scheduled Referrals Name Type Priority Associated Diagnoses Order S chedule [facility] PT, HAND, AND Referral Routine Cervicalgia Ordered: 0 06/27/2017 CHIROPRACTIC REFERRAL documented as of this encounter Results MR Cervical Spine w/o Contrast (06/28/2017 1:36 PM STORAGE MANAGEMENT CONSULTANT) Anatomical Region Laterality Modality Spine, SUBRAD MR NEURO, UMP MR SPINE, RAD MR Magnetic Resonance Specimen (Source) Anatomical Location Collection Method / Collectio n Time Received Time / Laterality Volume Impressions 06/28/2017 2:37 PM STORAGE MANAGEMENT CONSULTANT IMPRESSION: ?? 1. Anterior fusion at C5-C6 [...] MILAGROS JC MD Narrative 06/28/2017 2:37 PM STORAGE MANAGEMENT CONSULTANT MRI CERVICAL SPINE WITHOUT CONTRAST June 28, [...] level. MILAGROS JC MD Rosalia Main APRN FIELD AUTO APPRAISER IMG MRI ORDERABLES XR Cervical Spine 2/3 Views (06/27/2017 10:30 AM STORAGE MANAGEMENT CONSULTANT) Anatomical Region Laterality Modality Spine Computed Radiography Specimen (Source) Anatomical Location Collection Method / Collectio n Time Received Time / Laterality Volume Impressions 06/27/2017 4:33 PM STORAGE MANAGEMENT CONSULTANT IMPRESSION: Flexion and extension lateral views only. 1 mm anterolisthesis C2 on C3 and C4 on C5. T hese levels reduce with extension. Anterior interbody fusion C5- C7 appears solid with normal alignment. Degenerative disc space narro wing C3-4. No acute bony or soft tissue abnormality in the lateral v iew. ROHAN PINK MD Narrative 06/27/2017 4:33 PM STORAGE MANAGEMENT CONSULTANT CERVICAL SPINE TWO - THREE VIEWS 06/27/2017 [...] iew. ROHAN PINK MD Rosalia Karthik Main LABORATORY [facility]ETERINAR[facility] FIELD AUTO APPRAISER IMG DIAGNOSTIC IMAGING DAMASO MIRAMONTES documented in this encounter Visit Diagnoses Diagnosis Cervicalgia - Primary Cervicalgia Cervicalgia documented in this encounter Additional Health Concerns Assessment Noted Time PHQ-9 Depression Total Score: 12 06/12/2017 1:02 PM CS T documented as of this encounter Care Teams Calender Wind Up Helper Relationship Specialty Start Date End Date Vanda Guerrero MD PCP - General Internal Medicine 04/08/15 01/08/19 [address] [facility] [place] [address] Vanda Guerrero MD PCP - Assigned PCP 07/24/16 06/15/18 [address] [facility] [place] [address] documented as of this encounter
--- OUTSIDE RECORDS SUMMARY | 2022-02-02 09:13 | XMS_ITS | Encounter Summary ---
:1965 Author Organization [place] Address [address] [place] [address] Care Team Providers Name Role Phone Vanda Guerrero MD Primary Care Provider [phone] Vanda Guerrero MD Unavailable Reason for Visit Reason Comments Medication Refill omeprazole (PRILOSEC) 20 MG capsule Encounter Details Date Type Department Care Team Description 05/04/2017 Refill [facility] Vanda Guerrero M edication Refill Clinic Pino SALDANA (omeprazole (PRILOSEC) [address] [place] 3305 [facility] 20 MG capsule) [facility] [address] [place] [address] [place] [address] [phone] Social History Tobacco Use Types Packs/Day Years [...] How often do you attend taoist or baptist Patient refused 08/08/2019 services? Do [...] approved through 10/2019. Refills sent. Kirsten Casillas, painting manager Nurse ONAL BANKER Telephone Encounter - Marisa Matthew - 05/04/2017 8:18 AM CST [place] 09/25/2016 ONAL BANKER documented in this encounter Plan of Treatment Not on filedocumented as of this encounter Visit Diagnoses Diagnosis Gastroesophageal reflux disease without esophagitis Esophageal reflux documented in this encounter Additional Health Concerns Assessment Noted Time PHQ-9 Depression Total Score: 9 10/12/2016 7:16 AM CDT documented as of this encounter Care Teams Professor Of Genetics Relationship Specialty Start Date End Date Vanda Guerrero MD PCP - General Internal Medicine 04/08/15 01/08/[address] [place] [address] [place] [address] Vanda Guerrero MD PCP - Assigned PCP 07/24/16 06/15/[address] [place] [address] [place] [address] documented as of this encounter
--- OUTSIDE RECORDS SUMMARY | 2022-02-02 09:13 | XMS_ITS | Encounter Summary ---
:1965 Author Organization [facility] Address [address] [place] [address] Care Team Providers Name Role Phone Vanda Guerrero MD Primary Care Provider [phone] Vanda Guerrero MD Unavailable Reason for Referral Consultation - Closed Specialty Diagnoses / Procedures Referred By Contact Refer red To Contact Diagnoses Multiple pigmented nevi Vanda Guerrero MD [facility], [address] [place] [address] [address] [place] [address] [place] [address] Fax: Referral ID Status Reason Start Date Expiration Date Visits Requ ested Visits Authorized [id number] Closed 06/12/2017 06/12/2018 1 1 HOUSING TECHNICIAN Consultation - Closed Specialty Diagnoses / Procedures Referred By Contact Refer red To Contact Diagnoses Degenerative disc disease, cervical Vanda Guerrero MD [facility] [address] [place] [address] CL-RH- REFERRAL (OP) [address] [place] [address] [address] [place] [address] Phone: Fax: Referral ID Status Reason Start Date Expiration Date Visits Requ ested Visits Authorized [id number] Closed 06/12/2017 06/12/2018 1 1 HOUSING TECHNICIAN Reason for Visit Reason Comments Diabetes Lipids Recheck Medication Encounter Details Date Type Department Care Team Description 06/12/2017 Office Visit [facility] Vanda Guerrero ative disc disease, cervical (Primary Dx); Clinic Pino Toribio MD Moderate episode of recurrent major depr essive disorder (H); [address] [place] 3305 [facility] Morbi d obesity (H); [facility] Type 2 diabetes mellitus without complic ation, without long-term current use of insulin (H); [address] [place] [address] Anxiety; [place] [address] Muscle spasm; [phone] Persisten t insomnia; Fibromyalgia; Multiple pigmen jayne [...] How often do you attend synagogue or adventism Patient refused 08/08/2019 services? Do [...] Comments Blood Pressure 116/72 06/12/2017 12:11 PM WAREHOUSING TECHNICIAN Pulse 76 06/12/2017 12:11 PM WAREHOUSING TECHNICIAN Temperature 36.4 ??C (97.6 ??F) 06/12/2017 12:11 PM WAREHOUSING TECHNICIAN Respiratory Rate - - Oxygen Saturation 99% 06/12/2017 12:11 PM WAREHOUSING TECHNICIAN Inhaled Oxygen Concentration - - Weight 90.7 kg (200 lb) 06/12/2017 12:11 PM WAREHOUSING TECHNICIAN Height 157.5 cm (5' 2) 06/12/2017 12:11 PM WAREHOUSING TECHNICIAN Body Mass Index 36.58 06/12/2017 12:11 PM WAREHOUSING TECHNICIAN documented in this encounter Patient Instructions Patient InstructionsVanda Guerrero MD - 06/12/2017 12:00 PM CST Expect a call to set up a visit with the child specialist. Increase your citalopram to 1.5 pills per day. Stop the zanaflex and start robaxin (methocarbamol) in its place for your muscle pain Repeat labs today Numbers below for dermatology visit for the spot on your left shoulder Trial of ambien for sleep - don't drive on this - think about trying a 1/2 tablet first HOUSING TECHNICIAN documented in this encounter Progress Notes Vanda [...] or the safety of others? No PHQ-9 Portuguese PHQ-9 Any Language Suicide Assessment Five-step Evaluation [...] 1. Degenerative disc disease, cervical M50.30 ORTHO SECURITY INTERN REFERRAL Recommended repeat evaluation for cervical spine [...] IM See Patient Instructions Vanda Guerrero MD [facility] HOUSING TECHNICIAN documented in this encounter Nursing Notes Lori [...] 200 lb (90.7 kg). Medication Reconciliation: complete HOUSING TECHNICIAN documented in this encounter Plan of Treatment Pending Results Name Type Priority Associated Diagnoses Date/Ti me ORTHO SECURITY INTERN REFERRAL Referral Routine Degenerative dis c disease, 06/13/2017 cervical Scheduled Referrals Name Type Priority Associated Diagnoses Order S chedule DERMATOLOGY REFERRAL Referral Routine Multiple pigmented n missy Ordered: 06/12/2017 documented as of this encounter Procedures Procedure Name Priority Date/Time Associated Comments Diagnosis VITAMIN D DEFICIENCY Routine 06/12/2017 12:55 Fatigue, Res ults for this SCREENING PM WAREHOUSING TECHNICIAN unspecified type procedure a re in the results section. HEMOGLOBIN A1C Routine 06/12/2017 12:55 Type 2 diabetes Result s for this PM WAREHOUSING TECHNICIAN mellitus without procedure a re in complication, the results without long-term section. current use of insulin (H) Morbid obesity (H) COMPREHENSIVE Routine 06/12/2017 12:55 Type 2 diabetes Results for this METABOLIC PANEL PM WAREHOUSING TECHNICIAN mellitus without procedur e are in complication, the results without long-term section. current use of insulin (H) Morbid obesity (H) documented in this encounter Results Vitamin D Deficiency (06/12/2017 12:55 PM WAREHOUSING TECHNICIAN) P athologist Signature Vitamin D 35 20 - 75 06/13/2017 [facility] Deficiency ug/L 11:48 AM WAREHOUSING TECHNICIAN [facility] Comment: Season, race, dietary intake, and treatm ent affect the concentration of 40-qhgnxvy-Dqiqpby D. Values may decreas e during winter [...] Blood specimen 06/12/2017 12:55 8 (specimen) PM WAREHOUSING TECHNICIAN 12:56 PM WAREHOUSING TECHNICIAN Vanda Guerrero MD LAB - BLOOD ORDERABLES Performing Organization Address City/State/ZIP Code Phon e Number [address] [address] [facility] (ABNORMAL) Hemoglobin A1c (06/12/2017 12:55 PM WAREHOUSING TECHNICIAN) athologist Signature Hemoglobin A1C 6.7 (H) 4.3 - 6.0 06/12/2017 [place] % 1:47 PM WAREHOUSING TECHNICIAN [facility] Specimen Anatomical Collection Method Collection Time Receive d Time (Source) Location / / Volume Laterality Blood specimen 06/12/2017 12:55 8 (specimen) PM WAREHOUSING TECHNICIAN 12:56 PM WAREHOUSING TECHNICIAN Vanda Guerrero MD LAB - BLOOD ORDERABLES Performing Organization Address City/State/ZIP Code Phon e Number [address] [address] (ABNORMAL) Comprehensive metabolic panel (06/12/2017 12:55 PM WAREHOUSING TECHNICIAN) [employer] gist Method Time Signature Sodium 147 (H) 133 - 144 06/13/2017 [facility] mmol/L 8:14 AM [facility] Potassium 4.5 3.4 - 5.3 06/13/2017 [facility] mmol/L 8:14 AM [facility] Chloride 112 (H) 94 - 109 06/13/2017 [facility] mmol/L 8:14 AM [facility] Carbon Dioxide 30 20 - 32 06/13/2017 [facility] mmol/L 8:14 AM [facility] Anion Gap 5 3 - 14 06/13/2017 [facility] mmol/L 8:14 AM [facility] Glucose 125 (H) 70 - 99 06/13/2017 [place] mg/dL 8:14 AM [facility] Urea Nitrogen 11 7 - 30 06/13/2017 [facility] mg/dL 8:14 AM [facility] Creatinine 0.70 0.52 - 06/13/2017 [place] 1.04 mg/dL 8:14 AM [facility] GFR Estimate 87 >60 06/13/2017 [place] mL/min/1.7 8:14 AM [facility] m2 [facility] Comment: Non GFR Calc GFR Estimate If >90 >60 mL/min/1.7m2 06/13/2017 8:14 A M [facility] Black [facility] Comment: GFR Calc Calcium 9.2 8.5 - 10.1 06/13/2017 8:[address] [facility] mg/dL [facility] Bilirubin Total 0.2 0.2 - 1.3 06/13/2017 8:14 AM [facility] mg/dL [facility] Albumin 3.6 3.4 - 5.0 g/dL 06/13/2017 8:14 AM [facility] Protein Total 7.4 6.8 - 8.8 g/dL 06/13/2017 8:14 AM [facility] Alkaline Phosphatase 194 (H) 40 - 150 U/L 06/13/2017 8:14 AM [facility] ALT 31 0 - 50 U/L 06/13/2017 8:14 AM [place] C [facility] AST 25 0 - 45 U/L 06/13/2017 8:[address] [facility] Specimen Anatomical Collection Method Collection Time Receive d Time (Source) Location / / Volume Laterality Blood specimen 06/12/2017 12:55 8 (specimen) PM WAREHOUSING TECHNICIAN 12:56 PM WAREHOUSING TECHNICIAN Vanda Guerrero MD LAB - BLOOD ORDERABLES Performing Organization Address City/State/ZIP Code Phon e Number [facility] [address] [place] [address] documented in this encounter Visit Diagnoses Diagnosis [...] documented as of this encounter Care Teams Processing Engineer Relationship Specialty Start Date End Date Vanda Guerrero MD PCP - General Internal Medicine 04/08/15 01/08/19 [address] [facility] [place] [id number] Vanda Guerrero MD PCP - Assigned PCP 07/24/16 06/15/18 [address] [facility] [place] [address] documented as of this encounter
--- OUTSIDE RECORDS SUMMARY | 2022-02-02 09:13 | XMS_ITS | Encounter Summary ---
:1965 Author Organization [place] Address [address] [place] [address] Care Team Providers Name Role Phone Vanda Guerrero MD Primary Care Provider [phone] Vanda Guerrero MD Unavailable Encounter Details Date Type Department Care Team Description 07/09/2017 Therapy Visit [facility] Serena Blount (Primary Dx); CHIRO J, [place] Cervical segment dysfunction; [address] [facility] Thoracic segment dysfunction [address] [facility] [address] [address] [place] [address] Social History Tobacco Use Types Packs/Day Years [...] How often do you attend jain or catholic Patient refused 08/08/2019 services? Do [...] post manipulation Plan: Procedures: Evaluation and Management: [address] Moderate level exam 30 min CMT: 08399 Chiropractic manipulative treatment 1-2 regions performed Occiput: Gentle distraction-x10, C0, Supine Cervical: Gentle PtoA mob'sC4, T2, Supine NO rotary manipulation due to fusion C5-C7 Activator to right first rib Modalities: 66768: Acupuncture, for 15 minutes: Points: For neck [...] C5-C7 Activator to right first rib Modalities: 64037: Acupuncture, for 15 minutes: Points: For neck [...] when interpreting information found in this chart. ERWARE BUFFING MACHINE OPERATOR documented in this encounter Plan of Treatment Not on filedocumented as of this encounter Procedures Procedure Name Priority Date/Time Associated Diagnosis Comme nts HC ACUPUNCTURE, 1+ Routine 07/09/2017 1:43 PM Cervicalgi a NEEDLES, W/O ELECTRICAL SILVERWARE BUFFING MACHINE OPERATOR Cervical segment STIM; INIT 15 MIN dysfunction PERSONAL CONTACT Thoracic segment dysfunction [facility] CHIROPRAC Routine 07/09/2017 1:43 PM Cervicalgia MANIP,SPINAL,1-2 SILVERWARE BUFFING MACHINE OPERATOR Cervical segment REGIONS dysfunction Thoracic segment dysfunction [...] as of this encounter Care Teams Medical Transcription Editor Relationship Specialty Start Date End Date Vanda Guerrero MD PCP - General Internal Medicine 04/08/15 01/08/19 [address] [facility] [place] [address] Vanda Guerrero MD PCP - Assigned PCP 07/24/16 06/15/18 [address] [facility] [place] [address] documented as of this encounter
--- OUTSIDE RECORDS SUMMARY | 2022-02-02 09:13 | XMS_ITS | Encounter Summary ---
:1965 Author Organization [place] Address [address] [place] [address] Care Team Providers Name Role Phone Vanda Guerrero MD Primary Care Provider [phone] Vanda Guerrero MD Unavailable Encounter Details Date Type Department Care Team Description 07/27/2017 Therapy Visit [place] [facility] Serena Blount rvicalgia (Primary Dx); Medicine [place] Cervical segment dysfunction 3305 [facility] [address] [place] [address] [place] [address] DAV[place] MUNIZ [id number] Social History Tobacco Use Types Packs/Day Years [...] How often do you attend taoism or baptist Patient refused 08/08/2019 services? Do [...] to feel looser post manipulation Procedures: CMT: 28542 Chiropractic manipulative treatment 1-2 regions performed Occiput: Gentle distraction-x10, C0, Supine Cervical: Gentle PtoA mob'sC4, T2, Supine NO rotary manipulation due to fusion C5-C7 Activator to right first rib Modalities: 60007: Acupuncture, for 15 minutes: Points: For neck [...] Follow-up: Return to care in one week. SITION OPERATOR documented in this encounter Plan of Treatment Not on filedocumented as of this encounter Procedures Procedure Name Priority Date/Time Associated Diagnosis Comme nts HC ACUPUNCTURE, 1+ Routine 07/27/2017 10:08 AM Cervicalg ia NEEDLES, W/O ELECTRICAL DEPOSITION OPERATOR Cervical segment STIM; INIT 15 MIN dysfunction PERSONAL CONTACT [facility] CHIROPRAC Routine 07/27/2017 10:08 AM Cervicalgia MANIP,SPINAL,1-2 DEPOSITION OPERATOR Cervical segment REGIONS dysfunction documented in this encounter Visit Diagnoses Diagnosis Cervicalgia - Primary Cervical segment dysfunction Nonallopathic lesion of cervical region, not elsewhere classified documented in this encounter Additional Health Concerns Assessment Noted Time PHQ-9 Depression Total Score: 12 06/12/2017 1:02 PM CS T documented as of this encounter Care Teams Service Attendant Relationship Specialty Start Date End Date Vanda Guerrero MD PCP - General Internal Medicine 04/08/15 01/08/19 3305 [facility] [place] [address] Vanda Guerrero MD PCP - Assigned PCP 07/24/16 06/15/18 3305 [facility] [place] [address] documented as of this encounter
--- OUTSIDE RECORDS SUMMARY | 2022-02-02 09:13 | XMS_ITS | Encounter Summary ---
:1965 Author Organization [place] Address [address] [place] [address] Care Team Providers Name Role Phone Vanda Guerrero MD Primary Care Provider [phone] Vanda Guerrero MD Unavailable Reason for Visit Reason Comments Medication Refill omeprazole (PRILOSEC) 20 MG CR capsule Encounter Details Date Type Department Care Team Description 10/31/2017 Refill [facility] Vanda Guerrero M edication Refill Clinic [place] SALDANA (omeprazole (PRILOSEC) [address] [place] 3305 [facility] 20 MG CR capsule) [facility] [address] [place] [address] [place] [address] [phone] Social History Tobacco Use Types Packs/Day Years [...] How often do you attend spiritism or yazidism Patient refused 08/08/2019 services? Do [...] 10/31/2017 9:08 AM CDT Prescription approved per [facility] Refill Protocol. Telephone Encounter - [...] documented as of this encounter Care Teams Lan Engineer Relationship Specialty Start Date End Date Vanda Guerrero MD PCP - General Internal Medicine 04/08/15 01/08/19 3305 [facility] [place] [address] Vanda Guerrero MD PCP - Assigned PCP 07/24/16 06/15/18 3305 [facility] [place] [address] documented as of this encounter
--- OUTSIDE RECORDS SUMMARY | 2022-02-02 09:14 | XMS_ITS | Encounter Summary ---
:1965 Author Organization [place] Address [address] [place] [address] Care Team Providers Name Role Phone Vanda Guerrero MD Primary Care Provider [phone] Vanda Guerrero MD Unavailable Reason for Visit Reason Onset Date Comments Refill Request 12/10/2016 tiZANidine (ZANAFLEX ) 4 MG tablet Encounter Details Date Type Department Care Team Description 12/10/2016 Refill [facility] Vanda Guerrero R efill Request Clinic [place] SALDANA (tiZANidine (ZANAFLEX) [address] [place] 1123 [facility] 4 MG tablet) [facility] [address] [place] [address] [place] [address] [phone] Social History Tobacco Use Types Packs/Day Years [...] How often do you attend yazdanism or latter-day Patient refused 08/08/2019 services? Do [...] Agatha Null DPM, Podiatry/Foot and Ankle Surgery [facility] ([facility]) [address] [place] [phone] Routing refill request to provider for review/approval [...] documented as of this encounter Care Teams Screen Vent Binder Relationship Specialty Start Date End Date Vanda Guerrero MD PCP - General Internal Medicine 04/08/15 01/08/[address] [place] [address] [place] [address] Vanda Guerrero MD PCP - Assigned PCP 07/24/16 06/15/[address] [place] [address] [place] [address] documented as of this encounter
--- OUTSIDE RECORDS SUMMARY | 2022-02-02 09:14 | XMS_ITS | Encounter Summary ---
:1965 Author Organization [place] Address [address] [place] [address] Care Team Providers Name Role Phone Vanda Guerrero MD Primary Care Provider [phone] Vanda Guerrero MD Unavailable Reason for Visit (Routine) - Closed Specialty Diagnoses / Procedures Referred By Contact Refer red To Contact Radiology / Radiology. Diagnoses Epic order, sb pt [place] [address] [place] [address] [place] [address] Phone: Fax: Referral ID Status Reason Start Date Expiration Date Visits Requ ested Visits Authorized [id number] Closed 12/25/2016 12/22/2017 1 1 Encounter Details Date Type Department Care Team Description 12/25/2016 Hospital Encounter [facility] Agatha Null, Marcos eft foot pain; [facility] DPM, Acute left ankle pain; [address] [place] [facility]/Foot and Type 2 d iabetes mellitus without complication, without long-term current use of insulin (H); Drive [address] Ankle Surgery Edema [place] [address] [place] [address] [facility] [address] [place] [address] Social History Tobacco Use Types [...] capsule 8 capsule 0 017 01/02/2019 D3) 73708 UNITS (50,000 Units) by capsuleIndications: mouth once [...] or female climacteric states fluticasone (FLONASE) 50 [place] 1-2 sprays 3 Bottle 3 05/0306/12/2017 MCG/ACT [...] documented as of this encounter Care Teams Replanting Machine Operator Relationship Specialty Start Date End Date Vanda Guerrero MD PCP - General Internal Medicine 04/08/15 01/08/19 3305 [facility] [place] [address] Vanda Guerrero MD PCP - Assigned PCP 07/24/16 06/15/18 3305 [facility] [place] [address] documented as of this encounter
--- OUTSIDE RECORDS SUMMARY | 2022-02-02 09:14 | XMS_ITS | Encounter Summary ---
:1965 Author Organization [place] Address [address] [place] [address] Care Team Providers Name Role Phone Vanda Guerrero MD Primary Care Provider [phone] Vanda Guerrero MD Unavailable Reason for Visit Reason Comments Medication Refill [facility] L[facility]AT[facility]INE[facility] 24 HOUR 10- 240 MG per 24 hr tablet Encounter Details Date Type Department Care Team Description 02/05/2017 Refill [facility] Vanda Guerrero M edication Refill [facility] [place]DANA LORATADINE-D 24 HOUR [address] [place] 3305 [facility] 10-24 0 MG per 24 hr [facility] [address] tablet) [address] [place] [address] [place] [phone] [phone] Social History Tobacco Use Types Packs/Day Years [...] How often do you attend gnosticism or mormon Patient refused 08/08/2019 services? Do [...] CDT Info sent . Thea Gonzalez RN [facility] [phone] Telephone Encounter - Marisa Matthew - 02/05/2017 [...] documented as of this encounter Care Teams Fusion Analyst Relationship Specialty Start Date End Date Vanda Guerrero MD PCP - General Internal Medicine 04/08/15 01/08/[address] [place] [address] [place] [address] Vanda Guerrero MD PCP - Assigned PCP 07/24/16 06/15/[address] [place] [address] [place] [address] documented as of this encounter
--- OUTSIDE RECORDS SUMMARY | 2022-02-02 09:14 | XMS_ITS | Encounter Summary ---
:1965 Author Organization [place] Address [address] [place] [address] Care Team Providers Name Role Phone Vanda Guerrero MD Primary Care Provider [phone] Vanda Guerrero MD Unavailable Reason for Visit Reason Comments Medication Refill topiramate (TOPAMAX) 50 MG t ablet Encounter Details Date Type Department Care Team Description 12/11/2016 Refill [facility] Vanda Guerrero M edication Refill Clinic [place]ino SALDANA (topiramate (TOPAMAX) [address] [place] 3305 [facility] 50 MG tablet) [facility] [place] [address] [place] [address] [place] [address] [phone] Social History Tobacco Use Types Packs/Day Years [...] How often do you attend samaritan or voodoo Patient refused 08/08/2019 services? Do [...] documented as of this encounter Care Teams Content Director Relationship Specialty Start Date End Date Vanda Guerrero MD PCP - General Internal Medicine 04/08/15 01/08/[address] [place] [address] [place] [address] Vanda Guerrero MD PCP - Assigned PCP 07/24/16 06/15/[address] [place] [address] [place] [address] documented as of this encounter
--- OUTSIDE RECORDS SUMMARY | 2022-02-02 09:14 | XMS_ITS | Encounter Summary ---
:1965 Author Organization [place] Address [address] [place] [address] Care Team Providers Name Role Phone Vanda Guerrero MD Primary Care Provider [phone] Vanda Guerrero MD Unavailable Reason for Referral Specialty Diagnoses / Procedures Referred By Contact Refer red To Contact [facility] [address] [place] [address] [place] [address] Referral ID Status Reason Start Date Expiration Date Visits Requ ested Visits Authorized Reason for Visit Reason Comments Medication Therapy Management Encounter Details Date Type Department Care Team Description 10/11/2016 Office Visit [facility] Sandy Joe Fibrom yalgia (Primary Dx); Clinic Pino Jerez RPH Non morbid obesity, unspecified obesity type; [address] [place] [address] BENI ANDRE Type 2 diabetes mellitus without complic ation, without long-term current use of insulin (H); [email or web address] [place] [address] Vitamin D deficiency; [address] Anxiety; [place] (Work) 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 Do [...] this encounter Patient Instructions Patient InstructionsSandy Joe, [facility] - 10/11/2016 2:30 PM CDT Recommendations from today's MTM visit: MTM (medication therapy management) is a service provided by a clinical pharmacist designed to help you get the most of out of your medicines. Vitamin D deficiency: After 50,000 IU aim for 2,000 IU of vitamin D (look in your multivitamin) Diabetes: Stop metformin. Meet with filter tip catcher. Migraines: Change topiramate to 50mg twice daily. [...] may call the MTM scheduling line at [phone] or toll-free at . My Clinical Pharmacist's contact information: It was a pleasure seeing you today! Please feel free to contact me with any questions or concerns you have. Sandy Joe, Donald [facility] Medication Therapy Management Practitioner #[phone] You may receive a survey about the MTM services you received. I would appreciate your feedback to help me serve you better in the future. Please fill it out and return it when you can. Your comments will be anonymous. Electronically signed by Sandy Joe [facility] at 10/11/2016 3:37 PM CDT documented in this encounter Progress Notes Sandy Joe RPH - 10/11/2016 2:30 PM CDT SUBJECTIVE/OBJECTIVE: Megan Choi is a 51 year old female coming in for an initial visit for Medication Therapy Management. She was referred to me from Dr. Guerrero. Chief Complaint: She wants to get off medications. Wants to decrease weight. Allergies/ADRs: Reviewed in [employer] Tobacco: No tobacco use Alcohol: Less than 1 beverage / month Caffeine: no caffeine Activity: She is not exercising due to foot surgery, torn tendons PMH: Reviewed in [facility] Medication Adherence: no issues reported and [...] Weight gain: Needs improvement. Discussed meeting with under water assistant and continuing topiramate for now. Give consideration [...] your multivitamin) Diabetes: Stop metformin. Meet with filter tip catcher, CDE referral placed. Migraines: Change topiramate to [...] Cost of services discussed before visit, [facility] Ac[facility]. Note. All changes were made via collaborative practice agreement with Vanda Guerrero. A copy of the visit note was provided to the patient's primary care provider. The patient was given a summary of these recommendations as an after visit summary. Sandy Joe PharmD [facility] Medication Therapy Management Practitioner VM #[phone] Electronically signed by Sandy Joe [facility] at 10/12/2016 7:30 AM CDT documented in this encounter Plan [...] documented as of this encounter Care Teams Parole Or Probation Officer Relationship Specialty Start Date End Date Vanda Guerrero MD PCP - General Internal Medicine 04/08/15 01/08/[address] [facility] [place] [address] Vanda Guerrero MD PCP - Assigned PCP 07/24/16 06/15/[address] [facility] [place] [address] documented as of this encounter
--- OUTSIDE RECORDS SUMMARY | 2022-02-02 09:14 | XMS_ITS | Encounter Summary ---
:1965 Author Organization [place] Address [address] [place] [address] Care Team Providers Name Role Phone Vanda Guerrero MD Primary Care Provider [phone] Vanda Guerrero MD Unavailable Reason for Visit [facility] Physical Therapy (Routine) - Closed Specialty Diagnoses / Procedures Referred By Contact Refer red To Contact Physical Therapy Diagnoses new pt needs paperwork post peroneal tendon repair surgery left foot. / Agatha Null DPM, Pod @ [facility] Agatha Null DPM, Candy Disla, PT Procedures EXTREM[facility] Podiatry/Foot and [facility] Ankle Surgery CENTER [address] [place] [address] [place] [address] [place] [address] Referral ID Status Reason Start Date Expiration Date Visits V isits Requested Authorized LINUS/BC/LFOOT Closed 07/03/2016 06/10/2017 20 18 Encounter Details Date Type Department Care Team Description 09/01/2016 [facility], left; Rehabilitation PT Aftercare following surgery of the [facility] Services [facility] [address] [facility] [address] [place] [address] [place], [place] [phone] [address] Social History Tobacco Use Types Packs/Day [...] How often do you attend quaker or restoration Patient refused 08/08/2019 services? Do [...] documented as of this encounter Care Teams Business Process Architect Relationship Specialty Start Date End Date Vanda Guerrero MD PCP - General Internal Medicine 04/08/15 01/08/19 3305 [facility] [place] [address] Vanda Guerrero MD PCP - Assigned PCP 07/24/16 06/15/[address] [place] [address] [place] [address] documented as of this encounter
--- OUTSIDE RECORDS SUMMARY | 2022-02-02 09:14 | XMS_ITS | Encounter Summary ---
:1965 Author Organization [place] Address [address] [place] [address] Care Team Providers Name Role Phone Vanda Guerrero MD Primary Care Provider [phone] Vanda Guerrero MD Unavailable Reason for Visit (Routine) - Closed Specialty Diagnoses / Procedures Referred By Contact Refer red To Contact Radiology / Radiology. Diagnoses EPIC ORDER SB PT PREP INFORMED Rh Nuclear Medicine Procedures NM MPI WITH LEXISCAN [address] [place] [address] Phone: Fax: Referral ID Status Reason Start Date Expiration Date Visits Requ ested Visits Authorized [id number] Closed 10/17/2016 10/17/2017 1 1 Encounter Details Date Type Department Care Team Description 10/17/2016 Hospital Encounter [facility] Vanda Guerrero [facility] [address] 5669 [facility] [address] [place], [place] [id number] (Wo rk) Social History Tobacco Use Types [...] How often do you attend sikh or uatsdin Patient refused 08/08/2019 services? Do you belong to any clubs or organizations such as No 08/08/2019 sikh groups, [employer], fraternal or athletic groups, or school groups? [...] capsule 8 capsule 0 017 01/02/2019 D3) 06050 UNITS (50,000 Units) by capsuleIndications: mouth once [...] climacteric states times weekly fluticasone (FLONASE) 50 [place] 1-2 sprays 3 Bottle 3 05/0306/12/2017 MCG/ACT [...] Routine 10/17/2016 2:34 PM Family history of [place] R esults for this LEXISCAN CDT (myocardial [...] as of this encounter Care Teams Electric Golf Cart Repairer Relationship Specialty Start Date End Date Vanda Guerrero MD PCP - General Internal Medicine 04/08/15 01/08/19 3305 [facility] [place] [address] Vanda Guerrero MD PCP - Assigned PCP 07/24/16 06/15/18 3305 [facility] [place] [address] documented as of this encounter
--- OUTSIDE RECORDS SUMMARY | 2022-02-02 09:14 | XMS_ITS | Encounter Summary ---
:1965 Author Organization [place] Address [address] [place] [address] Care Team Providers Name Role Phone Vanda Guerrero MD Primary Care Provider [phone] Vanda Guerrero MD Unavailable Reason for Visit Reason Comments Diabetes Education Encounter Details Date Type Department Care Team Description 11/14/2016 Allied Health/Nurse [facility] Diabetes Education Visit [address] [place] [address] Social History Tobacco Use Types [...] How often do you attend quaker or amish Patient refused 08/08/2019 services? Do [...] water, Diet [place] (trying to reduce) Cultural/amish diet restrictions: No Biggest Challenge to Healthy [...] Understanding Diabetes Booklet, Carbohydrate Counting, My Plate Virtual Reality Specialist, Diabetes on a Budget Healthy Eating information [...] resources (magazines, books, etc.), Follow-up visit with community educator and Follow-up with primary care provider Wilda Fernandez RD, CDE Diabetes Society Reporter Time Spent: 60 minutes Encounter Type: Individual [...] documented as of this encounter Care Teams Team Manager Relationship Specialty Start Date End Date Vanda Guerrero MD PCP - General Internal Medicine 04/08/15 01/08/19 3305 [facility] [place] [address] Vanda Guerrero MD PCP - Assigned PCP 07/24/16 06/15/18 3303 [facility] [place] [address] documented as of this encounter
--- OUTSIDE RECORDS SUMMARY | 2022-02-02 09:14 | XMS_ITS | Encounter Summary ---
:1965 Author Organization [place] Address [address] [place] [address] Care Team Providers Name Role Phone Vanda Guerrero MD Primary Care Provider [phone] Vanda Guerrero MD Unavailable Reason for Visit Reason Onset Date Comments Refill Request 08/17/2016 DULOXETINE 30MG Encounter Details Date Type Department Care Team Description 08/17/2016 Refill [facility] Vanda Guerrero R efill Request Clinic Pino SALDANA (DULOXETINE 30MG) [address] [place] 3305 [facility] [address] [place] [address] [place] [phone] [phone] Social History Tobacco Use Types Packs/Day Years [...] How often do you attend evangelical or confucianism Patient refused 08/08/2019 services? Do [...] 08/18/2016 10:01 AM CST Prescription approved per [facility] Refill Protocol. Kirsten Casillas RN Triage Nurse IFOCAL BUTTON GENERATOR Telephone Encounter - Marisa Matthew - 08/17/2016 11:01 AM CST DULOXETINE 30MG Last Written Prescription Date: 11/09/2015 Last Fill Quantity: 180, # refills: 2 Last Office Visit with [facility], [facility] or [facility] prescribing provider: 06/01/2016 BP Readings from Last 3 Encounters: 08/15/16 114/74 07/18/16 118/78 07/13/16 112/68 Pulse: (for Fetzima) Creatinine Date Value Ref Range Status 06/08/2016 0.74 0.52 - 1.04 mg/dL Final ] Last PHQ-9 score on record= PHQ-9 SCORE 05/01/2016 Total Score - Total Score MyChart 11 (Moderate depression) Total Score - IFOCAL BUTTON GENERATOR documented in this encounter Plan of Treatment Not on filedocumented as of this encounter Visit Diagnoses Diagnosis Fibromyalgia Mylagia and myositis, unspecified documented in this encounter Additional Health Concerns Assessment Noted Time PHQ-9 Depression Total Score: 11 05/02/2016 7:09 AM CS T documented as of this encounter Care Teams Superintendent Construction Relationship Specialty Start Date End Date Vanda Guerrero MD PCP - General Internal Medicine 04/08/15 01/08/[address] [place] [address] [place] [address] Vanda Guerrero MD PCP - Assigned PCP 07/24/16 06/15/[address] [place] [address] [place] [address] documented as of this encounter
--- OUTSIDE RECORDS SUMMARY | 2022-02-02 09:14 | XMS_ITS | Encounter Summary ---
:1965 Author Organization [facility] Address [address] [place] [address] Care Team Providers Name Role Phone Vanda Guerrero MD Primary Care Provider [phone] Vanda Guerrero MD Unavailable JeanaNoreen girard VALVE MECHANIC DINKEY BRAKEMAN Unavailable [phone] JeanaNoreen girard VALVE MECHANIC DINKEY BRAKEMAN Unavailable [phone] JeanaNoreen girard VALVE MECHANIC DINKEY BRAKEMAN Primary Care Provider Kalyan Galvan Unavailable Unavailable Lashae Trevino [facility] Unavailable [phone] Eduardo Sharma MD Unavailable Rios Monteiro MD Unavailable Marcelo Artis-C Unavailable [phone] Rodrigo ManC Unavailable Reason for Visit Reason Comments Medication Refill simvastatin (ZOCOR) 20 MG ta blet Encounter Details Date Type Department Care Team Description 02/15/2017 Refill [facility] Vanda Guerrero M edication Refill Clinic Pino SALDANA (simvastatin (ZOCOR) 20 [address] [place] [address] [facility] MG ta blet) [facility] [address] [place] [address] [place] [address] [phone] Social History Tobacco Use Types Packs/Day Years [...] How often do you attend presybeterian or worship Patient refused 08/08/2019 services? Do [...] # refills: 3 Last Office Visit with [facility], [facility] or [facility] prescribing provider: 09/25/2016 Lab Results Component Value [...] <200 mg/dL 02/17/2017 [facility] 2:14 PM CDT [facility] Triglycerides 121 <150 mg/dL 02/17/2017 [facility] 2:14 PM T [facility] Comment: Fasting specimen HDL Cholesterol 43 (L) >49 mg/dL 02/17/2017 2:14 PM [facility] LDL Cholesterol 111 (H) <100 mg/dL 02/17/2017 2:14 PM [facility] Calculated CDT [facility] Comment: Above desirable: ??100-129 mg/dl Borderline High: ??130-159 mg/dL High: ? 160-189 mg/dL Very high: ? >189 mg/dl Non HDL Cholesterol 135 (H) <130 mg/dL 02/17/2017 2:[address] [facility] Comment: Above Desirable: ??130-159 mg/dl Borderline high: ??160-189 mg/dl High: ? 190-219 mg/dl Very high: ? >219 mg/dl Specimen Anatomical Collection Method Collection Time Receive d Time (Source) Location / / Volume Laterality Blood specimen 02/17/2017 9:13 AM 017 9:18 (specimen) CDT AM CDT Vanda Guerrero MD LAB - BLOOD ORDERABLES Performing Organization Address City/State/ZIP Code Phon e Number [facility] [address] [place] [address] documented in this encounter Visit Diagnoses Diagnosis Hyperlipidemia LDL goal <100 Other and unspecified hyperlipidemia documented in this encounter Additional Health Concerns Infection Onset Date Last Indicated Resolved Time Rule Out COVID-19 08/25/2020 08/25/2020 08/26/2020 3:2 3 PM CDT Assessment Noted Time PHQ-9 Depression Total Score: 9 10/12/2016 7:16 AM CDT documented as of this encounter Care Teams Aerial Advertiser Relationship Specialty Start Date End Date Vanda Guerrero, PCP - General Internal Medicine 04/08/15 01/08/[address] [place] [address] Vanda Guerrero, PCP - Assigned PCP 07/24/16 06/15/[address] [address] Noreen [place] PCP - Assigned PCP 06/16/18 08/13/18 SEAN Haley DINKEY BRAKEMAN [facility] [facility] [place] [address] Noreen [place] PCP - General Nurse Practitioner 01/09/19 12/12/21 SEAN Haley DINKEY BRAKEMAN [address] [place] [id number] Noreen [place] Assigned PCP 06/16/18 SEAN Haley DINKEY BRAKEMAN [address] [place] [address] [place] [phone] Kalyan Galvan Personal Advocate & 08/08/19 Liaison (PAL) Lashae Trevino Pharmacist Pharmacist 10/14/19 12/01/20 [facility] [address] [place], [place] [id number] Eduardo Sharma MD Assigned Sleep Provider 04/02/20 05/07/21 [address] [place] [address] Rios Monteiro MD Assigned Musculoskeletal 04/02/20 08/24/[address] Provider [address] [place], [place] [address] Marcelo Artis Assigned Musculoskeletal 08/25/20 08/20/21 MIKAYLA Nuno Provider [address] [place] [address] Rodrigo Man Assigned Surgical 08/25/2011/27 MIKAYLA Lacy Provider [address] [place] [address] documented as of this encounter
--- OUTSIDE RECORDS SUMMARY | 2022-02-02 09:14 | XMS_ITS | Encounter Summary ---
:1965 Author Organization [facility] Address [address] [place] [address] Care Team Providers Name Role Phone Vanda Guerrero MD Primary Care Provider [phone] Vanda Guerrero MD Unavailable Reason for Visit Reason Onset Date Comments Refill Request 10/06/2016 blood glucose monito ring (ONE TOUCH DELICA) lancets Encounter Details Date Type Department Care Team Description 10/06/2016 Refill [facility] Vanda Guerrero R efill Request (blood Clinic [place] SALDANA glucose monitoring (ONE [address] [place] [address] [place] TOUCH DELICA) lancets) [facility] [address] [place] [address] [place] [address] [phone] Social History Tobacco Use Types Packs/Day Years [...] How often do you attend quaker or adventist Patient refused 08/08/2019 services? Do [...] 10/06/2016 11:35 AM CDT Prescription approved per [facility] Refill Protocol. Kirsten Casillas, director talent management Nurse Telephone Encounter - Meri Palma - 10/06/2016 10:11 AM CDT blood glucose monitoring (ONE TOUCH DELICA) lancets Last Written Prescription Date: 10/07/15 Last Fill Quantity: 1 box, # refills: prn Last Office Visit with [facility], [facility] or [facility] prescribing provider: 09/25/16 Next 5 appointments (look out 90 days) October 11, 2016 2:30 PM CDT [facility] [address] [place] [address] [address] [facility] [address] BP Readings from Last 3 [...] documented as of this encounter Care Teams Loan Officer Assistant Relationship Specialty Start Date End Date Vanda Guerrero MD PCP - General Internal Medicine 04/08/15 01/08/19 [address] [facility] [place] [address] Vanda Guerrero MD PCP - Assigned PCP 07/24/16 06/15/18 [address] [facility] [place] [address] documented as of this encounter
--- OUTSIDE RECORDS SUMMARY | 2022-02-02 09:14 | XMS_ITS | Encounter Summary ---
:1965 Author Organization [facility] Address [address] [place] [address] Care Team Providers Name Role Phone Vanda Guerrero MD Primary Care Provider [phone] Vanda Guerrero MD Unavailable Reason for Visit Reason Onset Date Comments Refill Request 09/19/2016 ONE TOUCH ULTRA TEST STRIPS Encounter Details Date Type Department Care Team Description 09/19/2016 Refill [facility] Vanda Guerrero R efill Request (ONE Clinic [place] SAL[place]NA TOUCH ULTRA TEST [address] [place] [address] [facility] STRIP S) [facility] [address] [place] [address] [place] [address] [phone] Social History Tobacco Use Types Packs/Day Years [...] How often do you attend religion or buddhism Patient refused 08/08/2019 services? Do [...] CDT Office Visit with [facility] [address] [place] [address] [address] [facility] [address] documented in this encounter Plan of Treatment Not on filedocumented as of this encounter Visit Diagnoses Diagnosis Type 2 diabetes mellitus without complic ation (H) - Primary documented in this encounter Additional Health Concerns Assessment Noted Time PHQ-9 Depression Total Score: 11 05/02/2016 7:09 AM CS T documented as of this encounter Care Teams Measurement Psychologist Relationship Specialty Start Date End Date Vanda Guerrero MD PCP - General Internal Medicine 04/08/15 01/08/[address] [place] [address] [place] [address] Vanda Guerrero MD PCP - Assigned PCP 07/24/16 06/15/[address] [place] [address] [place] [address] documented as of this encounter
--- OUTSIDE RECORDS SUMMARY | 2022-02-02 09:14 | XMS_ITS | Encounter Summary ---
:1965 Author Organization [facility] Address [address] [place] [address] Care Team Providers Name Role Phone Vanda Guerrero MD Primary Care Provider [phone] Vanda Guerrero MD Unavailable Reason for Visit Reason Onset Date Comments Outreach 04/26/2017 Encounter Details Date Type Department Care Team Description 04/26/2017 Telephone [facility] Sandy Joe, Outreach [facility] [address] [place] [address] [address] [place] [address] Social History [...] How often do you attend congregation or bahai Patient refused 08/08/2019 services? Do [...] Sandy Joe RPH - 04/26/2017 12:19 PM AUTOMATIC THREAD WINDER We have attempted to contact this patient two times to set up a MTM follow up appointment and were unsuccessful. Contact attempts were made via [employer]. We will no longer continue to contact this patient to schedule a visit at this time. Please refer back to MTM if you believe this patient would continue to benefit from our services. Thank you! Sandy Joe PharmD BCPS Medication Therapy Management Practitioner #[phone] MATIC THREAD WINDER documented in this encounter Plan of Treatment Not on filedocumented as of this encounter Visit Diagnoses Not on filedocumented in this encounter Additional Health Concerns Assessment Noted Time PHQ-9 Depression Total Score: 9 10/12/2016 7:16 AM CDT documented as of this encounter Care Teams Billet Sawyer Relationship Specialty Start Date End Date Vanda Guerrero MD PCP - General Internal Medicine 04/08/15 01/08/19 [address] [facility] [place] [address] Vanda Guerrero MD PCP - Assigned PCP 07/24/16 06/15/18 [address] [facility] [place] [address] documented as of this encounter
--- OUTSIDE RECORDS SUMMARY | 2022-02-02 09:14 | XMS_ITS | Encounter Summary ---
:1965 Author Organization [facility] Address [address] [place] [address] Care Team Providers Name Role Phone Vanda Guerrero MD Primary Care Provider [phone] Vanda Guerrero MD Unavailable Reason for Visit Reason Onset Date Comments Refill Request 11/01/2016 gabapentin (NEURONTI N) 300 MG capsule Encounter Details Date Type Department Care Team Description 11/01/[address] [facility] Vanda Guerrero R efill Request Clinic [place] SALDANA (gabapentin (NEURONTIN) [address] [place] [address]305 [facility] 300 M G capsule) [facility] [address] [place] [address] [place] [address] [phone] Social History Tobacco Use Types Packs/Day Years [...] How often do you attend amish or rastafarian Patient refused 08/08/2019 services? Do [...] # refills: 11 Last Office Visit with [facility], [facility] or Health prescribing provider: 09/25/16 Future Office visit: Routing refill request to provider for review/approval because: Drug not on the [facility], [facility] or M Health refill protocol or [...] documented as of this encounter Care Teams Airplane Cabin Attendant Relationship Specialty Start Date End Date Vanda Guerrero MD PCP - General Internal Medicine 04/08/15 01/08/[address] [facility] [place] [address] Vanda Guerrero MD PCP - Assigned PCP 07/24/16 06/15/[address] [facility] [place] [address] documented as of this encounter
--- OUTSIDE RECORDS SUMMARY | 2022-02-02 09:14 | XMS_ITS | Encounter Summary ---
:1965 Author Organization [facility] Address [address] [place] [address] Care Team Providers Name Role Phone Vanda Guerrero MD Primary Care Provider [phone] Vanda Guerrero MD Unavailable Reason for Visit [facility] Physical Therapy (Routine) - Closed Specialty Diagnoses / Procedures Referred By Contact Refer red To Contact Physical Therapy Diagnoses new pt needs paperwork post peroneal tendon repair surgery left foot. / Agatha Null DPM, Pod @ [facility] Agatha Null DPM, Candy Disla, PT Procedures [facility] Podiatry/Foot and [facility] [address] [place] [address] [place] [address] [place] [address] Referral ID Status Reason Start Date Expiration Date Visits V isits Requested Authorized LINUS/BC/LFOOT Closed 07/03/2016 06/10/2017 20 18 Encounter Details Date Type Department Care Team Description 08/18/2016 [facility], left; Rehabilitation PT Aftercare following surgery of the [facility] Services [facility] [address] [facility] [address] [place] [address] [place], [place] [phone] [address] Social History Tobacco Use Types Packs/Day [...] How often do you attend episcopal or lutheran Patient refused 08/08/2019 services? Do [...] Name Priority Date/Time Associated Diagnosis Comme nts [facility] NEUROMUSCULAR Routine 08/18/2016 10:39 AM Ankle pain , left RE-EDUCATION CULINARY INTERNSHIP Aftercare following surgery of the musculoskeletal system [facility] THERAPEUTIC Routine 08/18/2016 10:39 AM Ankle pain, left EXERCISES CULINARY INTERNSHIP Aftercare following surgery of the musculoskeletal system documented in this encounter Visit Diagnoses Diagnosis Ankle pain, left Pain in joint, ankle and foot Aftercare following surgery of the muscu loskeletal system Aftercare following surgery of the [facility] loskeletal system, NEC documented in this encounter Additional Health Concerns Assessment Noted Time PHQ-9 Depression Total Score: 11 05/02/2016 7:09 AM CS T documented as of this encounter Care Teams Wind Development Director Relationship Specialty Start Date End Date Vanda Guerrero MD PCP - General Internal Medicine 04/08/15 01/08/19 [address] [facility] [place] [address] Vanda Guerrero MD PCP - Assigned PCP 07/24/16 06/15/[address] [place] [address] [place] [address] documented as of this encounter
--- OUTSIDE RECORDS SUMMARY | 2022-02-02 09:14 | XMS_ITS | Encounter Summary ---
:1965 Author Organization [facility] Address [address] [place] [address] Care Team Providers Name Role Phone Vanda Borja MD Primary Care Provider [phone] Vanda Borja MD Unavailable Reason for Referral Med Therapy Management - Closed Specialty Diagnoses / Procedures Referred By Contact Refer red To Contact Diagnoses Fatigue, unspecified type Type 2 diabetes mellitus without complication, without long-term current use of insulin (H) Fibromyalgia Chronic pain of left ankle Vanda Borja MD [address] [place] [address] Referral ID Status Reason Start Date Expiration Date Visits Requ ested Visits Authorized [id number] Closed 09/25/2016 09/25/2017 1 1 Reason for Visit Reason Comments Diabetes Encounter Details Date Type Department Care Team Description 09/25/2016 Office Visit [facility] Vanda Borja Type 2 diabetes mellitus without complication, without long-term current use of insulin (H) (Primary Dx); Clinic Pino Toribio MD Moderate episode of recurrent major depr essive disorder (H); [address] [place] [address] Fibro myalgia; [facility] Chronic pain of left ankle; [address] [place] [address] Family history of [place] (myocardial infarct ion); [place] [address] Atypical chest pain; [phone] Fatigue, unspecified type; Seasonal allerg ic rhinitis [...] How often do you attend holiness or holiness Patient refused 08/08/2019 services? Do [...] to set up a stress test in [place], the other to set up a visit [...] MANAGE REFERRAL G89.29 5. Family history of [place] (myocardial infarction) Z82.49 NM Exercise stress test [...] measures. See Patient Instructions Vanda Borja MD [facility] documented in this encounter Nursing [...] [facility] ug/L 2:25 PM CDT [place] [facility] Comment: Season, race, dietary intake, and treatm ent affect the concentration of 43-jujqvxe-Ncqdqwz D. Values may decreas e during winter [...] Phon e Number [facility] [address] [place], [place] [id number] [place] [address] (ABNORMAL) Comprehensive metabolic panel (02/17/2017 9:13 AM CDT) Analysis Performed At Patho logist Time Signature Sodium 145 (H) 133 - 144 02/17/2017 [place] mmol/L 2:14 PM CDT [facility] Potassium 3.9 3.4 - 5.3 02/17/2017 [place] mmol/L 2:14 PM CDT [facility] Chloride 111 (H) 94 - 109 02/17/2017 [facility] 2[facility]14 PM CDT [facility] Carbon Dioxide 28 20 - 32 02/17/2017 [place] mmol/L 2:14 PM [facility] Anion Gap 6 3 - 14 02/17/2017 [place] mmol/L 2:14 PM [facility] Glucose 137 (H) 70 - 99 02/17/2017 [place] mg/dL 2:14 PM [facility] Comment: Fasting specimen Urea Nitrogen 12 7 - 30 mg/dL 02/17/2017 2:14 PM CDT [facility] Creatinine 0.75 0.52 - 1.04 mg/dL 02/17/2017 2:14 PM CD T [facility] GFR Estimate 80 >60 mL/min/1.7m2 02/17/2017 2:14 PM C DT [facility] Comment: Non GFR Calc GFR Estimate If >90 >60 mL/min/1.7m2 02/17/2017 2:14 P M [facility] Black [facility] Comment: GFR Calc Calcium 9.1 8.5 - 10.1 02/17/2017 2:14 PM [facility] mg/dL [facility] Bilirubin Total 0.5 0.2 - 1.3 02/17/2017 2:14 PM [facility] mg/dL [facility] Albumin 3.5 3.4 - 5.0 g/dL 02/17/2017 2:14 PM [facility] Protein Total 7.3 6.8 - 8.8 g/dL 02/17/2017 2:14 PM [facility] Alkaline Phosphatase 169 (H) 40 - 150 U/L 02/17/2017 2:14 PM [facility] ALT 32 0 - 50 U/L 02/17/2017 2:14 PM [facility] AST 17 0 - 45 U/L 02/17/2017 2:14 PM [facility] Specimen Anatomical Collection Method Collection Time Receive d Time (Source) Location / / Volume Laterality Blood specimen 02/17/2017 9:13 AM 017 9:18 (specimen) CDT AM CDT Vanda Borja MD LAB - BLOOD ORDERABLES Performing Organization Address City/State/ZIP Code Phon e Number [facility] [address] [place] [address] Hepatitis C Screen Reflex to HCV RNA Quant and Genotype (09/25/2016 2:30 PM CDT) Component Value Ref Test Analysis Performed At [facility] gist Range Method Time Signature Hepatitis C Nonreactive NR [facility] Antibody Assay performance character istics have not been established for [facility], [place] MEDICAL infants, and children [facility] Specimen Anatomical Collection Method Collection Time Receive d Time (Source) Location / / Volume Laterality Blood specimen 09/25/2016 2:30 PM 017 (specimen) CDT 11:29 AM CDT Vanda Borja MD LAB - BLOOD ORDERABLES Performing Organization Address City/[facility]/ZIP Code Phon e Number [facility] [address] [place] [address] [facility] CBC with platelets (09/25/2016 2:30 PM [...] LAB - BLOOD ORDERABLES Performing Organization Address City/[facility]/ZIP Code Phon e Number [facility] [address] [place] [address] TSH with free T4 reflex (09/25/2016 2:30 PM CDT) athologist Signature TSH 1.80 0.40 - 4.00 [facility] mU/L [facility] Specimen Anatomical Collection Method Collection Time Receive d Time (Source) Location / / Volume Laterality Blood specimen 09/25/2016 2:30 PM 017 2:31 (specimen) CDT PM CDT Vanda Borja MD LAB - BLOOD ORDERABLES Performing Organization Address City/State/ZIP Code Phon e Number [facility] [address] [place] [address] Vitamin D Deficiency (09/25/2016 2:30 PM CDT) athologist Signature Vitamin D 25 20 - 75 [facility] Deficiency ug/L [place] [facility] Comment: Season, race, dietary intake, and treatm ent affect the concentration of 82-qrbrzpw-Rncjlfy D. Values may decrea se during winter [...] Phon e Number [facility] [address] [place] [address] [facility] Hemoglobin A1c (09/25/2016 2:30 PM CDT) athologist Signature Hemoglobin A1C 5.9 4.3 - 6.0 [facility] Specimen Anatomical Collection Method Collection Time Receive d Time (Source) Location / / Volume Laterality Blood specimen 09/25/2016 2:30 PM 017 2:31 (specimen) CDT PM CDT Vanda Borja MD LAB - BLOOD ORDERABLES Performing Organization Address City/State/ZIP Code Phon e Number [address] [address] (ABNORMAL) Comprehensive metabolic panel (09/25/2016 2:30 PM CDT) [facility] Method Time Signature Sodium 148 (H) 133 - 144 [place] mmol/L [facility] Potassium 4.5 3.4 - 5.3 [place] mmol/L [facility] Chloride 113 (H) 94 - 109 [place] mmol/L [facility] Carbon Dioxide 26 20 - 32 [place] mmol/L [facility] Anion Gap 9 3 - 14 [place] mmol/L [facility] Glucose 100 (H) 70 - 99 [place] mg/dL [facility] Urea Nitrogen 13 7 - 30 [place] mg/dL [facility] Creatinine 0.72 0.52 - [place] 1.04 mg/dL [facility] GFR Estimate 85 >60 [place] mL/min/1.7 CLINICS m2 [facility] Comment: Non GFR Calc GFR Estimate If Black >90 >60 mL/min/1.7m2 F [facility] GFR Calc [facility] Calcium 9.3 8.5 - 10.1 mg/dL [place] CLIN ICS [facility] Bilirubin Total 0.2 0.2 - 1.3 mg/dL [facility] Albumin 3.7 3.4 - 5.0 g/dL [facility] S [facility] Protein Total 7.4 6.8 - 8.8 g/dL [place] CL INICS [facility] Alkaline Phosphatase 165 (H) 40 - 150 U/L [facility] ALT 28 0 - 50 U/L [facility] AST 17 0 - 45 U/L [facility] Specimen Anatomical Collection Method Collection Time Receive d Time (Source) Location / / Volume Laterality Blood specimen 09/25/2016 2:30 PM 017 2:31 (specimen) CDT PM CDT Vanda Borja MD LAB - BLOOD ORDERABLES Performing Organization Address City/State/ZIP Code Phon e Number [facility] [address] [place] [address] Albumin Random Urine Quantitative (09/25/2016 2:30 PM CDT) P athologist Signature Creatinine 128 mg/dL [place] Urine [facility] Albumin Urine 8 mg/L [place] mg/L [facility] Albumin Urine 5.96 0 - 25 [place] mg/g Cr mg/g Cr [facility] Specimen Anatomical Collection Method Collection Time Receive d Time (Source) Location / / Volume Laterality Urine specimen 09/25/2016 2:30 PM 017 2:31 (specimen) CDT PM CDT Vanda Borja MD LAB - URINE ORDERABLES Performing Organization Address City/State/ZIP Code Phon e Number [facility] [address] [place] [address] [phone] [facility] [address] [place] [address], [facility] [phone] documented in this encounter Visit Diagnoses Diagnosis Type 2 diabetes mellitus without complic ation, without long-term current use of insulin (H) - Primary Moderate episode of recurrent major depr essive disorder (H) Fibromyalgia Mylagia and myositis, unspecified Chronic pain of left ankle Family history of [place] (myocardial infarct ion) Family history of ischemic [...] documented as of this encounter Care Teams Experience Planning Strategist Relationship Specialty Start Date End Date Vanda Borja MD PCP - General Internal Medicine 04/08/15 01/08/19 [address] [facility] [place] [address] Vanda Borja MD PCP - Assigned PCP 07/24/16 06/15/18 [address] [facility] [place] [address] documented as of this encounter
--- OUTSIDE RECORDS SUMMARY | 2022-02-02 09:14 | XMS_ITS | Encounter Summary ---
:1965 Author Organization [facility] Address [address] [place] [address] Care Team Providers Name Role Phone Vanda Borja MD Primary Care Provider [phone] Vanda Borja MD Unavailable Encounter Details Date Type Department Care Team Description 02/17/2017 Orders Only [facility] Thea vated alkaline phosphatase level; [facility] Hypernatremia; [address] Vitamin D deficiency; [address] Hyperlipidemia LDL [...] How often do you attend shinto or sabianist Patient refused 08/08/2019 services? Do [...] 67 (H) 0 - 40 U/L 02/20/2017 [facility] 7:47 AM CDT [facility] Specimen Anatomical Collection Method Collection Time Receive d Time (Source) Location / / Volume Laterality Blood specimen 02/17/2017 9:13 AM 017 8:18 (specimen) CDT PM CDT Vanda Borja MD LAB - BLOOD ORDERABLES Performing Organization Address City/State/ZIP Code Phon e Number [facility] [address] [place] [address] (ABNORMAL) Lipid panel reflex to direct LDL (02/17/2017 9:13 AM CDT) athologist Signature Cholesterol 178 <200 mg/dL 02/17/2017 [facility] 2:14 PM CDT [facility] Triglycerides 121 <150 mg/dL 02/17/2017 [facility] CS 2:14 PM CDT [facility] Comment: Fasting specimen HDL Cholesterol 43 (L) >49 mg/dL 02/17/2017 2:14 PM [facility] CDT [facility] LDL Cholesterol 111 (H) <100 mg/dL 02/17/2017 2:14 PM [facility] Calculated CDT [facility] Comment: Above desirable: ??100-129 mg/dl Borderline High: ??130-159 mg/dL High: ? 160-189 mg/dL Very high: ? >189 mg/dl Non HDL Cholesterol 135 (H) <130 mg/dL 02/17/2017 2:14 PM [facility] CDT [facility] Comment: [...] City/State/ZIP Code Phon e Number [facility] [address] [place] [address] Vitamin D Deficiency (02/17/2017 9:13 AM CDT) athologist Signature Vitamin D 33 20 - 75 02/19/2017 [facility] ug/L 2:25 PM CDT [place] [facility] Comment: Season, race, dietary intake, and treatm ent affect the concentration of 69-ueesvsz-Fdeovlz D. Values may decreas e during winter [...] Code Phon e Number [facility] [address] [place] [address] [facility] (ABNORMAL) Comprehensive metabolic panel (02/17/2017 9:13 AM CDT) Analysis Performed At Patho logist Time Signature Sodium 145 (H) 133 - 144 02/17/2017 [facility] mmol/L 2:14 PM [facility] Potassium 3.9 3.4 - 5.3 02/17/2017 [facility] mmol/L 2:14 PM T [place] [facility] Chloride 111 (H) 94 - 109 02/17/2017 [facility] mmol/L 2:14 PM [facility] [place] [facility] Carbon Dioxide 28 20 - 32 02/17/2017 [facility] mmol/L 2:14 PM [facility] [place] [facility] Anion Gap 6 3 - 14 02/17/2017 [facility] mmol/L 2:14 PM [facility] [place] [facility] Glucose 137 (H) 70 - 99 02/17/2017 [facility] mg/dL 2:14 PM [facility] [place] [facility] Comment: Fasting specimen Urea Nitrogen 12 7 - 30 mg/dL 02/17/2017 2:14 PM T [facility] Creatinine 0.75 0.52 - 1.04 mg/dL 02/17/2017 2:14 PM CD T [facility] GFR Estimate 80 >60 mL/min/1.7m2 02/17/2017 2:14 PM C DT [facility] Comment: Non GFR Calc GFR Estimate If >90 >60 mL/min/1.7m2 02/17/2017 2:14 P M [facility] Black [facility] Comment: GFR Calc Calcium 9.1 8.5 - 10.1 02/17/2017 2:14 PM [facility] mg/dL [facility] Bilirubin Total 0.5 0.2 - 1.3 02/17/2017 2:14 PM [facility] mg/dL [facility] Albumin 3.5 3.4 - 5.0 g/dL 02/17/2017 2:14 PM [facility] Protein Total 7.3 6.8 - 8.8 g/dL 02/17/2017 2:14 PM FA [facility] Alkaline Phosphatase 169 (H) 40 - 150 U/L 02/17/2017 2:[address] [facility] ALT 32 0 - 50 U/L 02/17/2017 2:14 PM [facility] CDT [facility] AST 17 0 - 45 U/L 02/17/2017 2:14 PM [facility] A[facility] CDT [facility] Specimen Anatomical Collection Method Collection Time Receive d Time (Source) Location / / Volume Laterality Blood specimen 02/17/2017 9:13 AM 017 9:18 (specimen) CDT AM CDT Vanda Borja MD LAB - BLOOD ORDERABLES Performing Organization Address City/State/ZIP Code Phon e Number [facility] [address] [place] [address] documented in this encounter Visit Diagnoses Diagnosis Elevated alkaline phosphatase level Other nonspecific abnormal serum enzyme levels Hypernatremia Hyperosmolality and/or hypernatremia Vitamin D deficiency Unspecified vitamin D deficiency Hyperlipidemia LDL goal <100 Other and unspecified hyperlipidemia documented in this encounter Additional Health Concerns Assessment Noted Time PHQ-9 Depression Total Score: 9 10/12/2016 7:16 AM CDT documented as of this encounter Care Teams Picked Edge Sewing Machine Operator Relationship Specialty Start Date End Date Vanda Borja MD PCP - General Internal Medicine 04/08/15 01/08/[address] [facility] [place] [address] Vanda Borja MD PCP - Assigned PCP 07/24/16 06/15/[address] [facility] [place] [place] [address] documented as of this encounter
--- OUTSIDE RECORDS SUMMARY | 2022-02-02 09:14 | XMS_ITS | Encounter Summary ---
:1965 Author Organization [facility] Address [address] [place] [address] Care Team Providers Name Role Phone Vanda Guerrero MD Primary Care Provider [phone] Vanda Guerrero MD Unavailable Reason for Visit (Routine) - Closed Specialty Diagnoses / Procedures Referred By Contact Refer red To Contact Cardiology Diagnoses EPIC ORDER SB PT PREP INFORMED [facility] Electrocardiology Procedures EKG STRESS NM [facility] [address] [place], [place] [address] Phone: Referral ID Status Reason Start Date Expiration Date Visits Requ ested Visits Authorized [id number] Closed 10/17/2016 10/17/2017 1 1 Encounter Details Date Type Department Care Team Description 10/17/2016 Hospital Encounter [facility] Vanda Watkins history of [place] (myocardial infarction); Electrocardiolgy MD Catarino Atypical chest pain [address] [place], [place] [address] [place] [address] Social History Tobacco Use Types [...] How often do you attend rastafari or jain Patient refused 08/08/2019 services? Do you belong to any clubs or organizations such as No 08/08/2019 rastafari groups, [employer], fraternal or athletic groups, or school groups? [...] capsule 8 capsule 0 017 01/02/2019 D3) 17638 UNITS (50,000 Units) by capsuleIndications: mouth once [...] climacteric states times weekly fluticasone (FLONASE) [address] [place] 1-2 sprays 3 Bottle 3 05/0306/12/2017 MCG/ACT [...] Routine 10/17/2016 2:34 PM Family history of [place] R esults for this [facility] CDT (myocardial [...] encounter Visit Diagnoses Diagnosis Family history of [place] (myocardial infarct ion) Family history of ischemic [...] documented as of this encounter Care Teams Chemistry Technician Relationship Specialty Start Date End Date Vanda Guerrero MD PCP - General Internal Medicine 04/08/15 01/08/19 [address] [facility] [place] [id number] Vanda Guerrero MD PCP - Assigned PCP 07/24/16 06/15/18 [address] [facility] [place] [id number] documented as of this encounter
--- OUTSIDE RECORDS SUMMARY | 2022-02-02 09:14 | XMS_ITS | Encounter Summary ---
:1965 Author Organization [facility] Address [address] [place] [address] Care Team Providers Name Role Phone Vanda Guerrero MD Primary Care Provider [phone] Vanda Guerrero MD Unavailable Reason for Visit Reason Onset Date Comments Refill Request 11/29/2016 not needed - choleca lciferol (VITAMIN D3) 36713 UNITS capsule Encounter Details Date Type Department Care Team Description 11/29/2016 Refill M [facility] Vanda Guerrero Refill Request (not needed Clinic Pino Toribio MD - cholecalciferol (VITAMIN [address] [place] [place] D3) 5 0000 UNITS capsule) [facility] [address] [place] [address] [place] [phone] Social History Tobacco Use Types Packs/Day Years [...] How often do you attend adventist or gnosticist Patient refused 08/08/2019 services? Do [...] the patient. I will also send a Codeanywhere message. Telephone Encounter - Marisa Matthew - 11/29/2016 4:03 PM CDT cholecalciferol (VITAMIN D3) 90367 UNITS capsule Last Written Prescription Date: 09/27/2016 Last Fill Quantity: 8, # refills: 0 Last Office Visit with [facility], P or [facility] prescribing provider: 09/25/2016 documented in this encounter Plan of Treatment Not on filedocumented as of this encounter Visit Diagnoses Diagnosis Vitamin D deficiency Unspecified vitamin D deficiency documented in this encounter Additional Health Concerns Assessment Noted Time PHQ-9 Depression Total Score: 9 10/12/2016 7:16 AM CDT documented as of this encounter Care Teams Spotlight Operator Relationship Specialty Start Date End Date Vanda Guerrero MD PCP - General Internal Medicine 04/08/15 01/08/19 [address] [facility] [place] [address] Vanda Guerrero MD PCP - Assigned PCP 07/24/16 06/15/18 [address] [facility] [place] [address] documented as of this encounter
--- OUTSIDE RECORDS SUMMARY | 2022-02-02 09:14 | XMS_ITS | Encounter Summary ---
:1965 Author Organization [facility] Address [address] [place] [address] Care Team Providers Name Role Phone Vanda Guerrero MD Primary Care Provider [phone] Vanda Guerrero MD Unavailable JeanaNoreen girard TARGETING ACQUISITION OFFICER [employer]IEF DESIGN BRANCH Unavailable [phone] JeanaNoreen girard TARGETING ACQUISITION OFFICER [employer] DESIGN BRANCH Unavailable [phone] JeanaNoreen girard TARGETING ACQUISITION OFFICER CHIEF DESIGN BRANCH Primary Care Provider [phone] Kalyan Galvan Unavailable Unavailable Lashae Trevino [facility] Unavailable [phone] Eduardo Sharma MD Unavailable Rios Monteiro MD Unavailable Marcelo Artis-C Unavailable [phone] Rodrigo Man-C Unavailable [phone] Reason for Visit Reason Onset Date Comments Refill Request 08/30/2016 Metformin 500mg tab Encounter Details Date Type Department Care Team Description 08/30/2016 Refill [facility] [employer] Vanda Guerrero R efill Request Clinic Pino SALDANA (Metformin 500mg tab) [address] [facility] [address] [place] [address] [place] [address] [phone] Social History Tobacco Use Types Packs/Day Years [...] How often do you attend adventist or adventism Patient refused 08/08/2019 services? Do [...] # refills: [address] Office Visit with [facility], [facility] or [facility] prescribing provider: 06/01/16 BP Readings from Last [...] of this encounter Care Teams Cloth Shrinking Machine Operator Helper Relationship Specialty Start Date End Date Vanda Guerrero, PCP - General Internal Medicine 04/08/15 01/08/19 [address] [facility] [place] [address] Vanda Guerrero, PCP - Assigned PCP 07/24/16 06/15/18 [address] [place] [address] [place] PCP - Assigned PCP 06/16/18 08/13/18 SEAN Haley CHIEF DESIGN BRANCH [address] [facility] [place] [address] [place] PCP - General Nurse Practitioner 01/09/19 12/12/21 SEAN Haley [employer]ANCH [address] [facility] [place] [address] [place] Assigned PCP 06/16/18 SEAN Haley [employer] DES[employer] BRANCH [address] [facility] [place] [address] Kalyan Galvan Personal Advocate & 08/08/19 Liaison (PAL) Lashae Trevino Pharmacist Pharmacist 10/14/19 12/01/20 [facility] [address] [address] [place], [place] [id number] Eduardo Sharma MD Assigned Sleep Provider 04/02/20 05/07/[address] [place] [address] Rios Monteiro MD Assigned Musculoskeletal 04/02/20 08/24/[address] Provider [address] [place] [address] Marcelo Artis Assigned Musculoskeletal 08/25/20 08/20/21 MIKAYLA Nuno Provider [address] [place], [place] [address] Rodrigo Man Assigned Surgical 08/25/2011/27 MIKAYLA Lacy Provider [address] [place] [address] documented as of this encounter
--- OUTSIDE RECORDS SUMMARY | 2022-02-02 09:14 | XMS_ITS | Encounter Summary ---
:1965 Author Organization [facility] Address [address] [place] [address] Care Team Providers Name Role Phone Vanda Guerrero MD Primary Care Provider [phone] Vanda Guerrero MD Unavailable Reason for Visit (Routine) - Closed Specialty Diagnoses / Procedures Referred By Contact Refer red To Contact Radiology / Radiology. Diagnoses EPIC ORDER, sb pt [place] [address] [place] [address] Phone: Fax: Referral ID Status Reason Start Date Expiration Date Visits Requ ested Visits Authorized [id number] Closed 12/25/2016 12/22/2017 1 1 Encounter Details Date Type Department Care Team Description 12/25/2016 Hospital Encounter [facility] Agatha Null E leopoldo of left lower extremity; [facility] DPM, Left foot pain; [address] [facility]Foot and Acute le ft ankle pain; Drive [address] Ankle Surgery Type 2 diabetes mellitus without complic ation, without long-term current use of insulin (H) [place] [address] [place] [address] [facility] [address] [place] [address] Social History Tobacco Use Types [...] How often do you attend tenriism or jainism Patient refused 08/08/2019 services? Do [...] capsule 8 capsule 0 017 01/02/2019 D3) 10509 UNITS (50,000 Units) by capsuleIndications: mouth once [...] or female climacteric states fluticasone (FLONASE) 50 [place] 1-2 sprays 3 Bottle 3 05/0306/12/2017 MCG/ACT [...] documented as of this encounter Care Teams Land Title Examiner Relationship Specialty Start Date End Date Vanda Guerrero MD PCP - General Internal Medicine 04/08/15 01/08/19 [address] [facility] [place] [address] Vanda Guerrero MD PCP - Assigned PCP 07/24/16 06/15/18 [address] [facility] [place] [address] documented as of this encounter
--- OUTSIDE RECORDS SUMMARY | 2022-02-02 09:14 | XMS_ITS | Encounter Summary ---
:1965 Author Organization [place] Address [address] [place] [address] Care Team Providers Name Role Phone Vanda Guerrero MD Primary Care Provider [phone] Vanda Guerrero MD Unavailable Reason for Visit Reason Comments Medication Refill loratadine-pseudoePHEDrine ( CLARITIN-D 24-HOUR) 10-240 MG per tablet Encounter Details Date Type Department Care Team Description 02/02/2017 Refill [facility] [place] Good dication Refill [facility] [place] APRN CHAIN MAKER HAND (loratadine-pseudoePHEDr [address] [place] [address] [facility] ine ( CLARITIN-D 24-HOUR) [facility] 10-240 MG per tablet ) [address] [place] [address] [place] [address] [phone] Social History Tobacco Use Types Packs/Day Years [...] AM CDT Faxed RX to patients pharmacy. oLri Weber MA Telephone Encounter - Vanda Guerrero MD - 02/05/2017 11:01 AM CDT Script printed, signed, and in station out basket. Telephone Encounter - Kirsten Casillas RN - 02/05/2017 10:27 AM CDT Routing refill request to provider for review/approval because: Drug not active on patient's medication list, not on [facility] protocol. Kirsten Casillas, flue dust laborer Nurse Telephone Encounter - Marisa Matthew - 02/05/2017 8:15 AM CDT loratadine-pseudoePHEDrine (CLARITIN-D 24-HOUR) 10-240 MG per tablet Last Written Prescription Date: 02/23/2016 Last Fill Quantity: 90, # refills: 3 Last Office Visit with [facility] or Health prescribing provider: 09/25/2016 Future Office visit: Routing refill request to provider for review/approval because: Drug not on the [facility], [facility] or Health refill protocol or controlled substance documented in this encounter Plan of Treatment Not on filedocumented as of this encounter Visit Diagnoses Diagnosis Chronic seasonal allergic rhinitis, unsp ecified trigger - Primary documented in this encounter Additional Health Concerns Assessment Noted Time PHQ-9 Depression Total Score: 9 10/12/2016 7:16 AM CDT documented as of this encounter Care Teams Functional Skills Tutor Relationship Specialty Start Date End Date Vanda Guerrero MD PCP - General Internal Medicine 04/08/15 01/08/19 [address] [facility] [place] [address] Vanda Guerrero MD PCP - Assigned PCP 07/24/16 06/15/18 [address] [facility] [place] [address] documented as of this encounter
--- OUTSIDE RECORDS SUMMARY | 2022-02-02 09:14 | XMS_ITS | Encounter Summary ---
:1965 Author Organization [place] Address [address] [place] [address] Care Team Providers Name Role Phone Vanda Guerrero MD Primary Care Provider [phone] Vanda Guerrero MD Unavailable Reason for Visit Reason Onset Date Comments Prior Auth - Medication 11/07/2016 omeprazole (PRIL OSEC) 20 MG capsule Encounter Details Date Type Department Care Team Description 11/07/2016 Telephone [facility] Pino Toribio MD Medication (omeprazole [address] [place] [address] [facility] (PRIL OSEC) 20 MG [facility] capsule) [address] [place] [address] [place] [id number] [phone] Social History Tobacco Use Types Packs/Day Years [...] How often do you attend anabaptist or uatsdin Patient refused 08/08/2019 services? Do [...] approval, they will inform pt. Auth #: [id number] Lori Weber MA Telephone Encounter - Lori Weber - 11/07/2016 9:40 AM CDT Received notice from pharmacy that medication is not covered. Medication: omeprazole (PRILOSEC) 20 MG capsule Insurance phone # : [phone] BIN :[id number] PCN: BRYAN GROUPRX: [id number] documented in this encounter Plan of Treatment Not on filedocumented as of this encounter Visit Diagnoses Not on filedocumented in this encounter Additional Health Concerns Assessment Noted Time PHQ-9 Depression Total Score: 9 10/12/2016 7:16 AM CDT documented as of this encounter Care Teams Account Underwriter Relationship Specialty Start Date End Date Vanda Guerrero MD PCP - General Internal Medicine 04/08/15 01/08/19 [address] [facility] [place] [address] Vanda Guerrero MD PCP - Assigned PCP 07/24/16 06/15/18 [address] [facility] [place] [address] documented as of this encounter
--- OUTSIDE RECORDS SUMMARY | 2022-02-02 09:14 | XMS_ITS | Encounter Summary ---
:1965 Author Organization [place] Address [address] [place] [address] Care Team Providers Name Role Phone Vanda Guerrero MD Primary Care Provider [phone] Vanda Guerrero MD Unavailable Reason for Visit Reason Comments RECHECK pt still having some pain an d swelling where the incision was, gets more and more swollen throughout the day Encounter Details Date Type Department Care Team Description 12/19/2016 Office Visit [facility] Agatha Null, Left fo ot pain (Primary Dx); [facility] [place] DPM, Podiatry/Foot Acute left ankle pain; [address] [facility] Type 2 diabetes mellitus without complic ation, without long-term current use of insulin (H); [place] [address] Edema of left lower extremity; [address] [place] [address] Pes cavus, congenital [phone] [place], [place] [phone] (Wo rk) Social History Tobacco Use Types [...] How often do you attend religious or buddhism Patient refused 08/08/2019 services? Do you belong to any clubs or organizations such as No 08/08/2019 religious groups, [employer], fraternal or athletic groups, or school groups? [...] LOCATIONS: SUNDAY AM - MIN SUNDAY - [place] [address] [facility] [address] [place] [address] [place] [address] / FX [phone] / FX [phone] SUNDAY - [place] SUNDAY AM - WOUND CENTER [address] [place] [address] [place] [address] [place] [address] / FX [phone] SUNDAY PM - [place] SCHEDULE SURGERY: [phone] [address] BILLING QUESTIONS: [phone] [place] [address] AFTER HOURS: / FX [phone] APPOINTMENTS: [phone] DIABETES AND YOUR FEET Diabetes can result [...] 2000 IU daily), Alpha-Lipoic Acid (600-1800mg daily), Mseuvs-N-Zxzeczfjw (500-1000mg TID, L-methyl folate (1500mcgdaily) Metformin can [...] trim your own toenails contact [employer] ([phone]) or [employer] ([phone]). THINGS TO AVOID DOING 1. Do not [...] you smoke, stop!!! Home Medical Equipment: 1. [facility] - [address] [facility] Center[facility] Mobile SolutionsCity [facility], [phone] 2. [facility] -[address] [address] Suite: [address] [place] 3. [employer] (knee walkers and power scooters) - [address] [facility] Shana [place], or [address] [facility] Mahesh [place], [phone]. 4. [facility] - [address], 5. [facility], [address] [place] [address]. Body Mass Index (BMI) Many things can [...] documented as of this encounter Care Teams Refrigeration Houseman Relationship Specialty Start Date End Date Vanda Guerrero MD PCP - General Internal Medicine 04/08/15 01/08/[address] [facility] [address] ANAYA, DAVID [id number] Vanda Guerrero MD PCP - Assigned PCP 07/24/16 06/15/18 [address] [facility] [place] [address] documented as of this encounter
--- OUTSIDE RECORDS SUMMARY | 2022-02-02 09:15 | XMS_ITS | Encounter Summary ---
:1965 Author Organization [facility] Address [address] [place] [address] Care Team Providers Name Role Phone Vanda Guerrero MD Primary Care Provider [phone] Vanda Guerrero MD Unavailable Reason for Visit [facility] Physical Therapy (Routine) - Closed Specialty Diagnoses / Procedures Referred By Contact Refer red To Contact Physical Therapy Diagnoses new pt needs paperwork post peroneal tendon repair surgery left foot. / Agatha Null DPM, Pod @ [facility] Agatha Null DPM, Candy Disla, PT Procedures EXTREMITY INITIAL Podiatry/Foot and [facility] Ankle Surgery CENTER [address] [place] [address] [place] [address] [place] [address] Referral ID Status Reason Start Date Expiration Date Visits V isits Requested Authorized LINUS/BC/LFOOT Closed 07/03/2016 06/10/2017 20 18 Encounter Details Date Type Department Care Team Description 07/24/2016 [facility], Ankle p ain, left; Rehabilitation PT Aftercare following surgery of the [facility] system Services [facility] [address] [facility] [address] [place] [address] [place], [place] [phone] [address] Social History Tobacco Use Types Packs/Day [...] How often do you attend pentecostal or caodaism Patient refused 08/08/2019 services? Do [...] 07/24/2016 1:51 PM Ankle pain, left RE-EDUCATION CABLE REPAIRER Aftercare following surgery of the musculoskeletal system Z THERAPEUTIC Routine 07/24/2016 1:51 PM Ankle pain, l eft EXERCISES CABLE REPAIRER Aftercare following surgery of the musculoskeletal system [...] documented as of this encounter Care Teams Poultry Hanger Relationship Specialty Start Date End Date Vanda Guerrero MD PCP - General Internal Medicine 04/08/15 01/08/19 [address] [facility] [place] [address] Vanda Guerrero MD PCP - Assigned PCP 07/24/16 06/15/[address] [place] [address] [place] [address] documented as of this encounter
--- OUTSIDE RECORDS SUMMARY | 2022-02-02 09:15 | XMS_ITS | Encounter Summary ---
:1965 Author Organization [facility] Address [address] [place] [address] Care Team Providers Name Role Phone Vanda Guerrero MD Primary Care Provider [phone] Reason for Visit Reason Onset Date Comments Prior Authorization 05/25/2016 Encounter Details Date Type Department Care Team Description 05/25/2016 Telephone [facility] Agatha Null, DPM, Pr ior Authorization [facility]/Foot and [address] [place] [address] Ank[address] [place] [address] [facility] [phone] [place], [place] [address] (Wo rk) Social History [...] How often do you attend latter-day or yazidism Patient refused 08/08/2019 services? Do [...] 05/25/2016 1:[address] [facility], , no precert is required for patient's 06/08/[address] Null. CPT code 55409. OGRAPHIC EQUIPMENT MECHANIC documented in this encounter Plan of Treatment Not on filedocumented as of this encounter Visit Diagnoses Not on filedocumented in this encounter Additional Health Concerns Assessment Noted Time PHQ-9 Depression Total Score: 11 05/02/2016 7:09 AM CS T documented as of this encounter Care Teams Forge Shop Machine Repairer Relationship Specialty Start Date End Date Vanda Guerrero MD PCP - General Internal Medicine 04/08/15 01/08/[address] [facility] [address] A[place], DAV[place] [address] documented as of this encounter
--- OUTSIDE RECORDS SUMMARY | 2022-02-02 09:15 | XMS_ITS | Encounter Summary ---
:1965 Author Organization [facility] Address [address] [place] [address] Care Team Providers Name Role Phone Vanda Guerrero MD Primary Care Provider [phone] Reason for Visit Reason Comments Foot Problems recheck afte MRI Encounter Details Date Type Department Care Team Description 05/16/2016 Office Visit [facility] Agatha Null, Foot pa in, bilateral (Primary Dx); [facility] [place] DPM, Podiatry/Foot Peroneal tendon tear, left, initial encounter; [address] [facility] and Ankle Surgery Peroneal tendon tear, right, initial enc ounter; [place] [address] Seda capellan vus, congenital; [address] [place] [address] Fibromyalgia; [phone] [place], [place] Type 2 diabet es mellitus without [...] How often do you attend gnosticist or religion Patient refused 08/08/2019 services? Do [...] Comments Blood Pressure 124/80 05/16/2016 9:43 AM CONSUMER SCIENCE TEACHER Pulse - - Temperature - - Respiratory Rate - - Oxygen Saturation - - Inhaled Oxygen Concentration - - Weight 86.7 kg (191 lb 3.2 oz) 05/16/2016 9:43 AM CONSUMER SCIENCE TEACHER Height 157.5 cm (5' 2) 05/16/2016 9:43 AM CONSUMER SCIENCE TEACHER Body Mass Index 34.97 05/16/2016 9:43 AM CONSUMER SCIENCE TEACHER documented in this encounter Patient Instructions Patient InstructionsAgatha Null DPM, Podiatry/Foot and Ankle Surgery - 05/16/2016 10:[address] Null can be found at these clinics: Sunday AM [facility] [address] [place] [address] Sunday PM Surgery Sunday All Day [facility] [address] [place] [address] Sunday [facility] [address] [place] [facility] [place], [place] [address] All Day surgery Sunday [facility] [place] [address], [address] [place], [place] [address] Sunday PM [facility] [address] [facility] [place], [address] [place] [address] TO SCHEDULE SURGERY, call Yecenia at [phone]. To Schedule appointments call: [phone] General (after hours): Patient [phone] POTENTIAL COMPLICATIONS OF FOOT AND ANKLE SURGERY [...] and Ankle Surgery - 05/16/2016 1:39 PM CONSUMER SCIENCE TEACHER Podiatry / Foot and Ankle Surgery Progress [...] using cuff size: regular Larry Michael MA UMER SCIENCE TEACHER documented in this encounter Plan of [...] documented as of this encounter Care Teams Vault Keeper Relationship Specialty Start Date End Date Vanda Guerrero MD PCP - General Internal Medicine 04/08/15 01/08/[address] [facility] [address] [place], [place] [address] documented as of this encounter
--- OUTSIDE RECORDS SUMMARY | 2022-02-02 09:15 | XMS_ITS | Encounter Summary ---
:1965 Author Organization [place] Address [address] [place] [address] Care Team Providers Name Role Phone Vanda Guerrero MD Primary Care Provider [phone] Reason for Visit [facility] Physical Therapy (Routine) - Closed Specialty Diagnoses / Procedures Referred By Contact Refer red To Contact Physical Therapy Diagnoses new pt needs paperwork post peroneal tendon repair surgery left foot. / Agatha Null DPM, Pod @ [facility] Agatha Null DPM, Candy Disla, PT Procedures EXTREMITY INITIAL Podiatry/Foot and [facility] Ankle Surgery CENTER [address] [place] [address] [facility] [place] [address] [place] [address] Referral ID Status Reason Start Date Expiration Date Visits V isits Requested Authorized LINUS/BC/LFOOT Closed 07/03/2016 06/10/2017 20 18 Encounter Details Date Type Department Care Team Description 07/14/2016 [facility]le p vinita, left (Primary Dx); Rehabilitation PT Aftercare following surgery of the [facility] loskeletal system Services [facility] [address] [facility] [address] [place] [address] [place], [place] [address] Social History Tobacco Use Types Packs/Day Years [...] How often do you attend bahai or advent Patient refused 08/08/2019 services? Do [...] Name Priority Date/Time Associated Diagnosis Comme nts [facility] NEUROMUSCULAR Routine 07/14/2016 10:49 AM Ankle pain , left RE-EDUCATION PHYSICAL THERAPY ATTENDANT Aftercare following surgery of the musculoskeletal system [facility] THERAPEUTIC Routine 07/14/2016 10:49 AM Ankle pain, left EXERCISES PHYSICAL THERAPY ATTENDANT Aftercare following surgery of the musculoskeletal system documented in this encounter Visit Diagnoses Diagnosis Ankle pain, left - Primary Pain in joint, ankle and foot Aftercare following surgery of the muscu loskeletal system Aftercare following surgery of the [facility] loskeletal system, NEC documented in this encounter Additional Health Concerns Assessment Noted Time PHQ-9 Depression Total Score: 11 05/02/2016 7:09 AM CS T documented as of this encounter Care Teams Flavor Room Worker Relationship Specialty Start Date End Date Vanda Guerrero MD PCP - General Internal Medicine 04/08/15 01/08/19 [address] [facility] [place] [address] documented as of this encounter
--- OUTSIDE RECORDS SUMMARY | 2022-02-02 09:15 | XMS_ITS | Encounter Summary ---
:1965 Author Organization [place] Address [address] [place] [address] Care Team Providers Name Role Phone Vanda Guerrero MD Primary Care Provider [phone] Reason for Visit Reason Comments Surgical Followup Left peroneal tendon repair and transfer DOS 06/10/16 Encounter Details Date Type Department Care Team Description 07/18/2016 Office Visit [facility] Agatha Null, Post-op [facility] DPM, Podiatry/Foot (Primary Dx) [address] [facility] [place] [address] [place] [address] [place] [address] [place], [place] [address] (Wo rk) Social History Tobacco Use Types [...] How often do you attend mandaeism or taoist Patient refused 08/08/2019 services? Do [...] Comments Blood Pressure 118/78 07/18/2016 9:54 AM LABORATORY SUPERVISOR Pulse - - Temperature - - Respiratory Rate - - Oxygen Saturation - - Inhaled Oxygen Concentration - - Weight 86.6 kg (191 lb) 07/18/2016 9:54 AM LABORATORY SUPERVISOR Height 157.5 cm (5' 2) 07/18/2016 9:54 AM LABORATORY SUPERVISOR Body Mass Index 34.93 07/18/2016 9:54 AM LABORATORY SUPERVISOR documented in this encounter Patient Instructions Patient InstructionsLarry Michael - 07/18/2016 10:[address] [facility] Schedule Follow up in 1 month Sunday AM Sunday [facility] [address] [place] [address] [facility] [address] [address] [place] [address] [facility] [address] [place] [address] Sunday PM & Sunday AM Sunday PM Surgery Scheduling Line: [phone] [facility]ound [facility] [place] [address] [place] [address] [facility] [address] [place] [address] Appointment [phone] General After Hours: Patient [phone] RATORY SUPERVISOR documented in this encounter Progress Notes Agatha Null, MARÍA, Podiatry/Foot and Ankle Surgery - 07/18/2016 9:58 AM LABORATORY SUPERVISOR Podiatry / Foot and Ankle Surgery [...] kg). Medication Reconciliation: complete Larry Michael MA RATORY SUPERVISOR documented in this encounter Plan of Treatment Not on filedocumented as of this encounter Visit Diagnoses Diagnosis Post-operative state - Primary Other postprocedural status documented in this encounter Additional Health Concerns Assessment Noted Time PHQ-9 Depression Total Score: 11 05/02/2016 7:09 AM CS T documented as of this encounter Care Teams Chemical Maker Relationship Specialty Start Date End Date Vanda Guerrero MD PCP - General Internal Medicine 04/08/15 01/08/19 [address] [facility] [place] [address] documented as of this encounter
--- OUTSIDE RECORDS SUMMARY | 2022-02-02 09:15 | XMS_ITS | Encounter Summary ---
:1965 Author Organization [place] Address [address] [place] [address] Care Team Providers Name Role Phone Vanda Guerrero MD Primary Care Provider [phone] Reason for Visit [facility] Physical Therapy (Routine) - Closed Specialty Diagnoses / Procedures Referred By Contact Refer red To Contact Physical Therapy Diagnoses new pt needs paperwork post peroneal tendon repair surgery left foot. / Agatha Null DPM, Pod @ [facility] Agatha Null DPM, Candy Disla, PT Procedures EXTREMITY INITIAL Podiatry/Foot and [facility] Ankle Surgery CENTER [address] [place] [address] [facility] [address] [place] [address] [place] [address] Referral ID Status Reason Start Date Expiration Date Visits V isits Requested Authorized LINUS/BC/LFOOT Closed 07/03/2016 06/10/2017 20 18 Encounter Details Date Type Department Care Team Description 07/05/2016 [facility]le p ain, left (Primary Dx); Rehabilitation PT Aftercare following surgery of the [facility] loskeletal system Services [facility] [address] [facility] [address] [place] [address] [place], [place] [phone] [address] Social History Tobacco Use Types Packs/Day [...] How often do you attend quaker or latter day Patient refused 08/08/2019 services? [...] Name Priority Date/Time Associated Diagnosis Comme nts [facility] NEUROMUSCULAR Routine 07/05/2016 12:44 PM Ankle pain , left RE-EDUCATION LEVEE SUPERINTENDENT Aftercare following surgery of the musculoskeletal system [facility] THERAPEUTIC Routine 07/05/2016 12:44 PM Ankle pain, left EXERCISES LEVEE SUPERINTENDENT Aftercare following surgery of the musculoskeletal system documented in this encounter Visit Diagnoses Diagnosis Ankle pain, left - Primary Pain in joint, ankle and foot Aftercare [facility] the [facility] Aftercare following [facility] the [facility], NEC documented in this encounter Additional Health Concerns Assessment Noted Time PHQ-9 Depression Total Score: 11 05/02/2016 7:09 AM CS T documented as of this encounter Care Teams Insurance Assistant Relationship Specialty Start Date End Date Vanda Guerrero MD PCP - General Internal Medicine 04/08/15 01/08/19 [address] [facility] [place] [address] documented as of this encounter
--- OUTSIDE RECORDS SUMMARY | 2022-02-02 09:15 | XMS_ITS | Encounter Summary ---
:1965 Author Organization [place] Address [address] [place] [address] Care Team Providers Name Role Phone Vanda Guerrero MD Primary Care Provider [phone] Reason for Visit (Routine) - Closed Specialty Diagnoses / Procedures Referred By Contact Refer red To Contact Radiology / Diagnoses Epic order sb Rh Ultrasound cc Radiology. Procedures US PELVIC COMP W TRANSVAGINAL [address] [place] [address] Phone: Fax: Referral ID Status Reason Start Date Expiration Date Visits Requ ested Visits Authorized [id number] Closed 05/05/2016 05/05/2017 1 1 Encounter Details Date Type Department Care Team Description 05/05/2016 [facility] Vanda Guerrero opausal Encounter [facility] MD [facility] [address] [place] [address] [place] [address] [address] [place], [place] (Work) [address] Social History Tobacco Use [...] How often do you attend jain or alevism Patient refused 08/08/2019 services? Do you belong to any clubs or organizations such as No 08/08/2019 jain groups, [employer], [employer] or athletic groups, or school groups? [...] or female climacteric states fluticasone (FLONASE) [address] [place] 1-2 sprays 3 Bottle 3 05/0306/12/2017 MCG/ACT [...] Results fo r this TRANSABDOMINAL AND PM GAMING ASSOCIATE bleeding procedure are in TRANSVAGINAL the results section. documented in this encounter Results US Pelvic Complete with Transvaginal (05/05/2016 2:41 PM GAMING ASSOCIATE) Anatomical Region Laterality Modality Abdomen/Pelvis Ultrasound Specimen (Source) Anatomical Location Collection Method / Collectio n Time Received Time / Laterality Volume Impressions 05/05/2016 3:32 PM GAMING ASSOCIATE IMPRESSION: 3.2 cm intramural fibroid. No endometrial thickening. Minimal free pelvic fluid is noted. Ovar ies are unremarkable and appear atrophic. DWIGHT LOZA MD Narrative 05/05/2016 3:32 PM GAMING ASSOCIATE US PELVIC COMPLETE WITH TRANSVAGINAL 05/05/2016 2:41 [...] documented as of this encounter Care Teams Systems Checkout Mechanic Relationship Specialty Start Date End Date Vanda Guerrero MD PCP - General Internal Medicine 04/08/15 01/08/[address] [facility] [place] [address] [place], [place] [address] documented as of this encounter
--- OUTSIDE RECORDS SUMMARY | 2022-02-02 09:15 | XMS_ITS | Encounter Summary ---
:1965 Author Organization [place] Address [facility]ly [facility] [place] [address] Care Team Providers Name Role Phone Vanda Guerrero MD Primary Care Provider [phone] Reason for Referral LINUS Physical Therapy - Closed Specialty Diagnoses / Procedures Referred By Contact Refer red To Contact Diagnoses Post-operative state Weakness Agatha Null, JOAOM, [facility]Foot [facility] Ankle [facility] Surgery [address] [place] [address] [address] [place] [address] [place] [address] Phone: [phone] Referral ID Status Reason Start Date Expiration Date Visits Requ ested Visits Authorized [id number] Closed 06/20/2016 06/20/2017 1 1 ORT TEACHER Reason for Visit Reason Comments Surgical Followup Left peroneal tendon repair and transfer Encounter Details Date Type Department Care Team Description 06/20/2016 Office Visit [facility] Agatha De Los Santos, Post-op erative state (Primary Dx); [facility] [place] DPM, Podiatry/Foot Weakness [address] [facility] [place] [address] [place] [address] [address] [place], [place] [id number] (Wo rk) Social History Tobacco Use Types [...] How often do you attend advent or protestant Patient refused 08/08/2019 services? Do [...] Comments Blood Pressure 116/82 06/20/2016 10:07 AM SUPPORT TEACHER Pulse - - Temperature - - Respiratory Rate - - Oxygen Saturation - - Inhaled Oxygen Concentration - - Weight 86.6 kg (191 lb) 06/20/2016 10:07 AM SUPPORT TEACHER Height 157.5 cm (5' 2) 06/20/2016 10:07 AM SUPPORT TEACHER Body Mass Index 34.93 06/20/2016 10:07 AM SUPPORT TEACHER documented in this encounter Patient Instructions Patient InstructionsLarry Michael - 06/20/2016 10:20 AM CST 1. Can get foot wet. 2. Can start minimal weight bearing in boot and crutches in 3 weeks in the house. 3. Start PT in 2 weeks. 4. Follow up in 1month Dr. Null's [facility] Schedule Sunday AM Sunday [facility] [address] [place] [address] [facility] [address] [place] [address] [facility] [address] [place] [address] Sunday PM & Sunday AM Sunday PM Surgery Scheduling Line: [phone] [facility] [place] [address] [place] [address] [facility] [address] [place] [address] Appointment [phone] General After Hours: Patient [phone] Scar Care Protocol Scarring is an unfortunate [...] appearance of the scar, as it will foreign exchange 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 Scar Care 1. Do [...] and Ankle Surgery - 06/20/2016 10:15 AM SUPPORT TEACHER Podiatry / Foot and Ankle Surgery [...] using cuff size: regular Larry Michael MA ORT TEACHER documented in this encounter Plan of [...] as of this encounter Care Teams Radio Division Lieutenant Relationship Specialty Start Date End Date Vanda Guerrero MD PCP - General Internal Medicine 04/08/15 01/08/[address] [place] [address] documented as of this encounter
--- OUTSIDE RECORDS SUMMARY | 2022-02-02 09:15 | XMS_ITS | Encounter Summary ---
:1965 Author Organization [place] Address [address] [place] [address]. [place] [address] Care Team Providers Name Role Phone Vanda Guerrero MD Primary Care Provider [phone] Reason for Visit Auth/Cert Specialty Diagnoses / Procedures Referred By Contact Refer red To Contact Surgery Diagnoses Peroneal Tendon tear Rh Periop Services Procedures REPAIR TENDON PERONEAL [address] [place], [place] [address] Fax: Referral ID Status Reason Start Date Expiration Date Visits Requ ested Visits Authorized [id number] 1 1 Encounter Details Date Type Department Care Team Description 06/08/2016 Anesthesia Event [facility] Olivier Sanchez PeriOp Services MD [place] [address] [place] [address] ANESTH [place] [address] [place], [place] [address] (Wo rk) Anesthesia Record [...] How often do you attend jew or hindu Patient refused 08/08/2019 services? Do [...] Sanchez MD June 08, 2016 11:23 AM GRADER OPERATOR Anesthesia Procedure Notes - Garry Sanchez MD [...] trained nor qualified to perform this procedure. GRADER OPERATOR Anesthesia Preprocedure Evaluation - Garry Sanchez MD [...] blood products discussed: No . . . GRADER OPERATOR documented in this encounter Miscellaneous Notes Anesthesia [...] prepare to transfer to PACU, Report to DIE TRIPPER. VSS transfer care Vitals: (Last set prior to Anesthesia Care Transfer) Electronically Signed By: Bryson Marie APRN SHIRT TRIMMER June 08, 2016 11:18 AM GRADER OPERATOR documented in this encounter Plan of Treatment Not on filedocumented as of this encounter Procedures Procedure Name Priority Date/Time Associated Diagnosis Comme nts ANE Routine 06/08/2016 10:12 AM Results for this PERIPHERAL/PARAVETE ROAD GRADER OPERATOR procedur e are in BRAL BLOCK the results section. documented in this encounter Results Peripheral/Paravetebral Block (06/08/2016 10:[address] GRADER OPERATOR) Narrative Garry Sanchez MD - 016 10:[address] GRADER OPERATOR Garry Sanchez MD ? 06/08/2016 10:12 AM [...] scrub. Nerve Stim: Initial Level 1 mA. ??[place] t motor response 0.5 mA.. ?? Needle: [...] to perform this procedure. Garry Sanchez MD [place] ANESTHESIA Peripheral/Paravetebral Block (06/08/2016 10:[address] GRADER OPERATOR) Narrative Garry Sanchez MD - 016 10:[address] GRADER OPERATOR Garry Sanchez MD ? 06/08/2016 10:12 AM [...] scrub. Nerve Stim: Initial Level 1 mA. ??[place] t motor response 0.5 mA.. ?? Needle: [...] to perform this procedure. Garry Sanchez MD [place] ANESTHESIA documented in this encounter Visit Diagnoses Not on filedocumented in this encounter Administered Medications Inactive Administered Medications - up to 3 most recent administrations Medication Order MAR Action Action Date Dose Rate Site bupivacaine 0.5 % - EPINEPHrine Given 06/08/2016 9:[address] GRADER OPERATOR 40 mLs 1:200,000 injection PRN, Starting on Eld[place] 06/08/16 at 0953, Anesthesia Intra-op ceFAZolin sodium-dextrose (ANCEF) infusi on 2 g Given 06/08/2016 10:[address] GRADER OPERATOR 2 g Routine, 2 g, Intravenous, PRE-OP/PRE-PROCEDURE, Starting on [place] 06/08/16 at 0859, For 1 dose, Give first dose within 1 hour PRIOR to incision. If patient weight is greater than or equal to 120 kg increase dose to 3 g., Indications: Perioperative Pharmacoprophylaxis, Pre-procedure dexamethasone (DECADRON) injection Given 06/08/2016 10:[address] GRADER OPERATOR 8 mg PRN, Administer over 1-4 Minutes, Starting on [place] 06/08/16 at 1013, Anesthesia Intra-op fentaNYL Citrate (PF) (SUBLIMAZE) inject ion Given 06/08/2016 10:[address] GRADER OPERATOR 75 mcg PRN, moderate to severe pain, Starting on [place] 06/08/16 at 0953, Anesthesia Intra-op Given 06/08/2016 9:[address] GRADER OPERATOR 50 mcg glycopyrrolate (ROBINUL) injection Given 06/08/2016 10:[address] GRADER OPERATOR 0.2 mg PRN, Starting on [place] 06/08/16 at 1013, Anesthesia Intra-op ketorolac (TORADOL) injection Given 06/08/2016 10:[address] GRADER OPERATOR 30 mg PRN, moderate pain, Starting on [place] 06/08/16 at 1013, Anesthesia Intra-op lactated ringers infusion New Bag 06/08/2016 11:[address] GRADER OPERATOR at 25 mL/hr, Intravenous, CONTINUOUS, IF patient NOT on dialysis., Pre-procedure, Starting on [place]a 06/08/16 at 0915, Until [place] 06/08/16 at 1115 New Bag 06/08/2016 10:[address] GRADER OPERATOR lidocaine 1 % 1 mL Given 06/08/2016 10:[address] GRADER OPERATOR 30 mg 1 mL, Other, EVERY 1 HOUR PRN, mild pain with VAD insertion or accessing implanted port, Starting on [place] 06/08/16 at 0901, Do NOT give if patient has a history of allergy to any local anesthetic or any jabier product. MAX dose 1 mL subcutaneous OR intradermal in divided doses., Pre-procedure methylPREDNISolone acetate (DEPO-MEDROL) Given 06/08/2016 9:[address] GRADER OPERATOR 80 mg injection PRN, Starting on [place] 06/08/16 at 0953, Anesthesia Intra-op midazolam (VERSED) injection Given 06/08/2016 10:[address] GRADER OPERATOR 2 mg PRN, anxiety, Starting on [place] 06/08/16 at 0953, Anesthesia Intra-op Given 06/08/2016 9:[address] GRADER OPERATOR 2 mg ondansetron (ZOFRAN) injection Given 06/08/2016 10:[address] GRADER OPERATOR 4 mg PRN, nausea, vomiting, Administer over 2-5 Minutes, Starting on [place] 06/08/16 at 1013, Anesthesia Intra-op propofol (DIPRIVAN) injection 10 mg/mL v ial Given 06/08/2016 10:[address] GRADER OPERATOR 200 mg PRN, Starting on [place] 06/08/16 at 1013, Anesthesia Intra-op rocuronium (ZEMURON) injection Given 06/08/2016 10:[address] GRADER OPERATOR 20 mg PRN, Starting on [place] 06/08/16 at 1013, Anesthesia Intra-op documented in this encounter Additional Health Concerns Assessment Noted Time PHQ-9 Depression Total Score: 11 05/02/2016 7:09 AM CS T documented as of this encounter Care Teams Interactive Digital Media Specialist Relationship Specialty Start Date End Date Vanda Guerrero MD PCP - General Internal Medicine 04/08/15 01/08/[address] [place] [address] documented as of this encounter
--- OUTSIDE RECORDS SUMMARY | 2022-02-02 09:15 | XMS_ITS | Encounter Summary ---
:1965 Author Organization [place] Address [address] [place] [address] Care Team Providers Name Role Phone Vanda Guerrero MD Primary Care Provider [phone] Vanda Guerrero MD Unavailable Reason for [...] and [facility] [address] [place] [address] [place] [address] [place] [address] Referral ID Status Reason Start Date Expiration Date Visits V isits Requested Authorized LINUS/BC/LFOOT Closed 07/03/2016 06/10/2017 20 18 Encounter Details Date Type Department Care Team Description 08/11/2016 [facility] ain, left; Rehabilitation PT Aftercare following surgery of the [facility] Services [facility] [address] [facility] [address] [place] [address] [place], [place] [phone] [address] Social History Tobacco Use Types Packs/Day [...] How often do you attend restorationist or holiness Patient refused 08/08/2019 services? Do [...] short term goals and is progressing towards watcher automat long goods goals. Self Management Plans: Patient has been [...] and time spent performing 1:1 timed codes. EACH COUNSELOR documented in this encounter Plan of Treatment Not on filedocumented as of this encounter Procedures Procedure Name Priority Date/Time Associated Diagnosis Comme nts [facility] NEUROMUSCULAR Routine 08/11/2016 10:38 AM Ankle pain , left RE-EDUCATION OUTREACH COUNSELOR Aftercare following surgery of the musculoskeletal system [facility] THERAPEUTIC Routine 08/11/2016 10:38 AM Ankle pain, left EXERCISES OUTREACH COUNSELOR Aftercare following surgery of the musculoskeletal system documented in this encounter Visit Diagnoses Diagnosis Ankle pain, left Pain in joint, ankle and foot Aftercare [facility] Aftercare [facility], NEC documented in this encounter Additional Health Concerns Assessment Noted Time PHQ-9 Depression Total Score: 11 05/02/2016 7:09 AM CS T documented as of this encounter Care Teams Label Printing Machinist Relationship Specialty Start Date End Date Vanda Guerrero MD PCP - General Internal Medicine 04/08/15 01/08/[address] [place] [address] [place] [address] Vanda Guerrero MD PCP - Assigned PCP 07/24/16 06/15/[address] [place] [address] [place] [address] documented as of this encounter
--- OUTSIDE RECORDS SUMMARY | 2022-02-02 09:15 | XMS_ITS | Encounter Summary ---
:1965 Author Organization [place] Address [address] [place] [address] Care Team Providers Name Role Phone Vanda Guerrero MD Primary Care Provider [phone] Reason for Visit LINUS Physical Therapy (Routine) - Closed Specialty Diagnoses / Procedures Referred By Contact Refer red To Contact Physical Therapy Diagnoses new pt needs paperwork post peroneal tendon repair surgery left foot. / Agatha Null DPM, Pod @ Cr Podiatry Agatha Null DPM, Candy Disla, PT Procedures EXTREMITY INITIAL Podiatry/Foot and [facility] Ankle Surgery [facility]ENTER [address] [place] [address] [facility] [address] [place] [address] [place] [address] Referral ID Status Reason Start Date Expiration Date Visits V isits Requested Authorized LINUS/BC/LFOOT Closed 07/03/2016 06/10/2017 20 18 Encounter Details Date Type Department Care Team Description 07/03/2016 [facility] Afterca re following surgery of the musculoskeletal system (Primary Dx); Rehabilitation PT Ankle pain, left Services [facility] [address] [facility] [address] [place] [address] [place], [place] [phone] [address] Social History Tobacco Use Types Packs/Day [...] How often do you attend moravian or buddhism Patient refused 08/08/2019 services? Do [...] Objective: System Physical Exam General ROS Assessment/Plan: GRINDER Candy Disla, PT - 07/03/2016 10:04 AM CST [facility] Initial Evaluation Subjective: Megan [...] Sheet for this information) Short term and correction goals: (See Goal Flow Sheet for this [...] and time spent performing 1:1 timed codes. GRINDER documented in this encounter Plan of Treatment Not on filedocumented as of this encounter Procedures Procedure Name Priority Date/Time Associated Diagnosis Comme [facility] THERAPEUTIC Routine 07/03/2016 2:19 PM Aftercare following EXERCISES WOOD GRINDER surgery of the musculoskeletal system Ankle pain, left documented in this encounter Visit Diagnoses Diagnosis Aftercare following surgery of the muscu loskeletal system - Primary Aftercare [facility], NEC Ankle pain, left Pain in joint, ankle and foot documented in this encounter Additional Health Concerns Assessment Noted Time PHQ-9 Depression Total Score: 11 05/02/2016 7:09 AM CS T documented as of this encounter Care Teams Health Program Specialist Relationship Specialty Start Date End Date Vanda Guerrero MD PCP - General Internal Medicine 04/08/15 01/08/19 [address] [facility] [place] [address] documented as of this encounter
--- OUTSIDE RECORDS SUMMARY | 2022-02-02 09:15 | XMS_ITS | Encounter Summary ---
:1965 Author Organization [place] Address [address] [place] [address] Care Team Providers Name Role Phone Vanda Guerrero MD Primary Care Provider [phone] Reason for Visit Reason Comments Pre-Op Exam Encounter Details Date Type Department Care Team Description 06/01/2016 Office Visit [facility] Noreen Corbett Preop gen eral physical exam (Primary Dx); Clinic Pino Mcneil MD Type 2 diabetes mellitus without complic ation, without long-term current use of insulin (H); [address] [place] [address] [facility] Injur y of peroneal tendon of left foot, subsequent encounter; [facility] [address] murm[address] [place] [address] [place] [phone] Social History Tobacco Use Types Packs/Day Years [...] How often do you attend mormon or scientology Patient refused 08/08/2019 services? Do [...] Comments Blood Pressure 104/68 06/01/2016 10:14 AM PHOTO LAB MANAGER Pulse 72 06/01/2016 10:14 AM PHOTO LAB MANAGER Temperature - - Respiratory Rate - - Oxygen Saturation - - Inhaled Oxygen Concentration - - Weight 86.6 kg (191 lb) 06/01/2016 10:14 AM PHOTO LAB MANAGER Height - - Body Mass Index 34.93 05/16/2016 9:43 AM PHOTO LAB MANAGER documented in this encounter Patient Instructions [...] and have clean sheets on your bed. O LAB MANAGER documented in this encounter Progress Notes Noreen Corbett MD - 06/01/2016 10:17 AM CST [address] [facility] [address] Dept: [phone] PRE-OP EVALUATION: Today's date: 06/01/2016 Megan Choi (: 1965) presents for pre-operative evaluation assessment as requested by Dr. Null. She requires evaluation and anesthesia risk assessment prior to undergoing surgery/procedure for treatment of left ankle . Proposed procedure: repair of tendon in left ankle Date of Surgery/ Procedure: 06/08/16 Time of Surgery/ Procedure: 10:10am Hospital/Surgical Facility: [facility] Primary Physician: Vanda Guerrero Type of Anesthesia [...] ??? fluticasone (FLONASE) 50 MCG/ACT nasal spray [place] 1-2 sprays into both nostrils daily 3 [...] provided to requesting physician. [place] Preop Guidelines O LAB MANAGER documented in this encounter Nursing Notes Kallie [...] completed using cuff size: kait Blanco ma O LAB MANAGER documented in this encounter Plan of Treatment Not on filedocumented as of this encounter Procedures Procedure Name Priority Date/Time Associated Diagnosis Comme nts EKG 12-LEAD Routine 06/01/2016 10:37 AM Preop general Results for this COMPLETE W/READ - PHOTO LAB MANAGER physical exam procedure are in CLINICS the results section. documented in this encounter Results EKG 12-lead complete w/read - Clinics (06/01/2016 10:37 AM PHOTO LAB MANAGER) Specimen (Source) Anatomical Collection Method Collection Time Re ceived Time Location / / Volume Laterality 06/01/2016 10:37 AM PHOTO LAB MANAGER Narrative This result has an attachment that [...] documented as of this encounter Care Teams Chiller Operator Relationship Specialty Start Date End Date Vanda Guerrero MD PCP - General Internal Medicine 04/08/15 01/08/19 [address] [place] [address] documented as of this encounter
--- OUTSIDE RECORDS SUMMARY | 2022-02-02 09:15 | XMS_ITS | Encounter Summary ---
:1965 Author Organization [place] Address [address] [place] [address] Care Team Providers Name Role Phone Vanda Guerrero MD Primary Care Provider [phone] Reason for Visit Reason Onset Date Comments Medication Question 05/08/2016 interactions with me ds Encounter Details Date Type Department Care Team Description 05/08/2016 Telephone [facility] Vanda Lal Medication Question [address] [facility] MD Caatrino (interactions with [place] [phone] [place] [address]) [phone] [facility] [place] [address] (Wo rk) [...] How often do you attend mandaeism or bahai Patient refused 08/08/2019 services? Do [...] PM CST Gave verbal ok to pharmacist. PULLER Telephone Encounter - Vanda Guerrero MD - 05/08/2016 3:34 PM SLAB PULLER Patient has been on this combination keno terminal operator, is tolerating well, and is being followed closely. OK to fill. Please call pharmacy. PULLER Telephone Encounter - Graciela Barone RN - 05/08/2016 3:07 PM CST Cara pharmacist from [facility] calling regarding medication interactions with Citalopram. Omeprazole and Tizanidine in conjunction with Omeprazole may increased the QT interval. Cymbalta also interacts with Citalopram-increased serotonin. Please call pharmacist at [phone], if ok to continue these medications. Iain Barone RN PULLER documented in this encounter Plan of Treatment Not on filedocumented as of this encounter Visit Diagnoses Not on filedocumented in this encounter Additional Health Concerns Assessment Noted Time PHQ-9 Depression Total Score: 05/02/2016 7:09 AM CS T documented as of this encounter Care Teams Underwriting Internship Relationship Specialty Start Date End Date Vanda Guerrero MD PCP - General Internal Medicine 04/08/15 01/08/19 [address] [facility] [place] [address] documented as of this encounter
--- OUTSIDE RECORDS SUMMARY | 2022-02-02 09:15 | XMS_ITS | Encounter Summary ---
:1965 Author Organization [facility] Address [address] [place] [address] Care Team Providers Name Role Phone Vanda Guerrero MD Primary Care Provider [phone] Reason for Visit Reason Onset Date Comments Schedule Surgery 05/17/2016 Encounter Details Date Type Department Care Team Description 05/17/2016 Telephone [facility] Agatha Null, MARÍA, Schedule Surgery [facility]Foot and [address] [place] [address] Ankle Surgery [place], [place] [id number] [place] [address] [address] [place] [address] [facility] [phone] [place], [place] [address] (Wo rk) Social History [...] How often do you attend pentecostalism or moravian Patient refused 08/08/2019 services? Do [...] 06/08/16 @ 10:[address] [facility] Details confirmed with patient. Thank you. ? DIAGNOSIS: left peroneal tendon tear PROCEDURES: ??Left peroneal tendon repair/transfer Site: ??Left Length of case: ??60 min [place]: ?? No ANESTHESIA: General Popliteal Block: ??Yes Tourniquet: t high ?? PATIENT POSITION: ??Lateral left up Antibiotics: ??Give before surgery Same day EQUIPMENT: ??Mini c-arm, podiatry set, tenotomy scissors, 2-prolene,and 3-0 fiberwire HALMOLOGY TECHNICIAN documented in this encounter Plan of Treatment Not on filedocumented as of this encounter Visit Diagnoses Not on filedocumented in this encounter Additional Health Concerns Assessment Noted Time PHQ-9 Depression Total Score: 11 05/02/2016 7:09 AM CS T documented as of this encounter Care Teams Hair Clipper Power Relationship Specialty Start Date End Date Vanda Guerrero MD PCP - General Internal Medicine 04/08/15 01/08/[address] [facility] [place] [address] documented as of this encounter
--- OUTSIDE RECORDS SUMMARY | 2022-02-02 09:15 | XMS_ITS | Encounter Summary ---
:1965 Author Organization [facility] Address [address] [place] [address] Care Team Providers Name Role Phone Vanda Guerrero MD Primary Care Provider [phone] Vanda Guerrero MD Unavailable Reason for Visit Reason Comments Surgical Followup Left peroneal tendon repair and transfer DOS 06/08/16 Encounter Details Date Type Department Care Team Description 08/15/2016 Office Visit [facility] Agatha Null, Post-op erative state (Primary Dx); [facility] [place] DPM, Podiatry/Foot Type 2 diabetes mellitus wit hout complication, without long- term current use of insulin (H); [address] and Ankle Surgery Peroneal tendon tear, right, [place] [address] [facility] [address] [facility] [address] [place], [place] [address] (Wo rk) Social History Tobacco Use Types [...] How often do you attend temple or cheondoism Patient refused 08/08/2019 services? Do [...] Comments Blood Pressure 114/74 08/15/2016 9:54 AM POULTRY FARM SUPERVISOR Pulse - - Temperature - - Respiratory Rate - - Oxygen Saturation - - Inhaled Oxygen Concentration - - Weight 86.6 kg (191 lb) 08/15/2016 9:54 AM POULTRY FARM SUPERVISOR Height 157.5 cm (5' 2) 08/15/2016 9:54 AM POULTRY FARM SUPERVISOR Body Mass Index 34.93 08/15/2016 9:54 AM POULTRY FARM SUPERVISOR documented in this encounter Patient Instructions Patient InstructionsLarry Michael - 08/15/2016 10:[address] [facility] Schedule Follow up in 2 months Sunday AM Sunday [facility] [address] [place] [address] [facility] [address] [place] [address] [facility] [address] [place] [address] Sunday PM & Sunday AM Sunday PM Surgery Scheduling Line: [phone] [facility] [address] [place] [address] [facility] [address] [place] [address] Appointment [phone] General After Hours: Patient [phone] To Schedule surgery, Call: [phone] TRY FARM SUPERVISOR documented in this encounter Progress Notes Agatha Null, DPM, Podiatry/Foot and Ankle Surgery - 08/15/2016 10:00 AM POULTRY FARM SUPERVISOR Podiatry / Foot and Ankle Surgery [...] kg). Medication Reconciliation: complete Larry Michael MA TRY FARM SUPERVISOR documented in this encounter Plan of [...] documented as of this encounter Care Teams Infant Teacher Relationship Specialty Start Date End Date Vanda Guerrero MD PCP - General Internal Medicine 04/08/15 01/08/19 [address] [facility] [place] [address] Vanda Guerrero MD PCP - Assigned PCP 07/24/16 06/15/18 [address] [facility] [place] [address] documented as of this encounter
--- OUTSIDE RECORDS SUMMARY | 2022-02-02 09:15 | XMS_ITS | Encounter Summary ---
:1965 Author Organization [facility] Address [address] [place] [address] Care Team Providers Name Role Phone Vanda Guerrero MD Primary Care Provider [phone] Reason for Visit Auth/Cert Specialty Diagnoses / Procedures Referred By Contact Refer red To Contact Surgery Diagnoses Peroneal Tendon tear Rh Periop Services Procedures REPAIR TENDON PERONEAL [address] [place], [place] [address] Fax: Referral ID Status Reason Start Date Expiration Date Visits Requ ested Visits Authorized [id number] 1 1 Encounter Details Date Type Department Care Team Description 06/08/2016 Hospital Encounter [facility] Agatha Nieves P ost-operative state (Primary Dx); [facility] PreOP/PostOP DPM, Peroneal tendon tear, left, subsequent encounter; [address] Podiatry/Foot and Type 2 diabetes mellitus wit hout complication, without long- term current use of insulin (H) [place], [place] Ankle Surgery [address] [place] [phone] [address] [place], [place] [id number] Social History Tobacco Use Types Packs/Day Years [...] How often do you attend methodist or jewish Patient refused 08/08/2019 services? Do you belong to any clubs or organizations such as No 08/08/2019 methodist groups, SysClasss, fraternal or athletic groups, or school groups? [...] Comments Blood Pressure 122/69 06/08/2016 1:00 PM SHEARING SHED WORKER Pulse - - Temperature 36.8 ??C (98.2 ??F) 06/08/2016 1:00 PM SHEARING SHED WORKER Respiratory Rate 16 06/08/2016 12:59 PM SHEARING SHED WORKER Oxygen Saturation 95% 06/08/2016 1:20 PM SHEARING SHED WORKER Inhaled Oxygen Concentration - - Weight 87.1 kg (192 lb 1.6 oz) 06/08/2016 8:52 AM SHEARING SHED WORKER Height 157.5 cm (5' 2) 06/08/2016 8:52 AM SHEARING SHED WORKER Body Mass Index 35.14 06/08/2016 8:52 AM SHEARING SHED WORKER documented in this encounter Discharge Instructions Discharge [...] take any ibuprofen products until 3:15 pm. RING SHED WORKER documented in this encounter Medications at Time [...] or female climacteric states fluticasone (FLONASE) [address] [place] 1-2 sprays 3 Bottle 3 05/0306/12/2017 MCG/ACT [...] days available in the hospital surgical encounter. RING SHED WORKER Source Note - Noreen Corbett MD - 06/01/2016 10:17 AM SHEARING SHED WORKER [place] [address] [facility] [address] [facility] [address] Dept: [phone] PRE-OP EVALUATION: Today's date: 06/01/2016 Megan Wong [...] pain 11/24/2009 ??? Migraine headache 04/13/2008 Dr. Martniez, neurology (Problem list name updated by automated process. Provider to review and confirm.) ??? GERD (gastroesophageal reflux disease) 04/13/2008 ??? Obesity 04/13/2008 ??? Family history of PA (myocardial infarction) 04/13/2008 At early age, father PA at age 40 Past Medical History Diagnosis [...] ??? fluticasone (FLONASE) 50 MCG/ACT nasal spray [place] 1-2 sprays into both nostrils daily [...] cardiovascular risks for perioperative complications such as (PA, PE, VFib and 3?? AV Block): No [...] evaluation report is provided to requesting physician. [facility] Preop Guidelines RING SHED WORKER documented in this encounter Nursing Notes Hortencia Sawyer, RERE - 06/08/2016 12:26 PM CST Pharmacy [facility] called. Prescription question. Clarified with MD. Will receive the Enoxaparin 100mg/1mlwill give same dose just changing the dispensing container. V. O. Dr Karthik Nieves RING SHED WORKER documented in this encounter Miscellaneous Notes Op [...] DPM MT: [id number] Name: MEGAN WONG Account: [id number] : 1965 Procedure Date: 06/08/2016 Document: [id number] RING SHED WORKER Brief Op Note - Agatha Nieves DPM, Podiatry/Foot and Ankle Surgery - 06/08/2016 11:19 AM CST [facility] Brief Operative Note Pre-operative diagnosis: Peroneal [...] AM Post-operative st ate Results for this SHEARING SHED WORKER procedure are i n the results section. SURGICAL PATHOLOGY Routine 06/08/2016 10:40 AM Re sults for this EXAM SHEARING SHED WORKER procedure are i n the results section. REPAIR, TENDON, 06/08/2016 9:59 AM Peroneal Tendon tea r PERONEAL SHEARING SHED WORKER Special Needs 5'2 / 191# stated POTASSIUM STAT 06/08/2016 9:20 AM SHEARING SHED WORKER Resul ts for this procedure are i n the results section . CREATININE STAT 06/08/2016 9:20 AM SHEARING SHED WORKER Resul ts for this procedure are i n the results section . GLUCOSE BY METER Routine 06/08/2016 8:58 AM SHEARING SHED WORKER R esults for this procedure are i n the results section . PATHOLOGY RESULT - HIM 06/08/2016 12:00 AM SHEARING SHED WORKER SCAN documented in this encounter Results (ABNORMAL) Glucose by meter (06/08/2016 11:52 AM SHEARING SHED WORKER) P athologist Signature Glucose 159 (H) 70 - 99 POINT OF CARE mg/dL TEST, GLUCOSE Specimen Anatomical Collection Method Collection Time Receive d Time (Source) Location / / Volume Laterality 06/08/2016 11:52 06/08/2016 AM SHEARING SHED WORKER 11:55 AM SHEARING SHED WORKER Agatha Nieves DPM, Podiatry/Foot and Ankle Surgery LAB - [facility] POCT Performing Organization Address City/State/ZIP Code Phon e Number FV POINT OF CARE TEST, GLUCOSE POINT OF CARE TEST, GLUCOSE Surgical pathology exam (06/08/2016 10:40 AM SHEARING SHED WORKER) Component Value Ref Test Analysis Performed At [facility] gist Range Method Time Signature Copath Report Patient Name: MEGAN WONG MR#: [id number] Specimen #: [id number] Collected: 06/08/2016 Received: 06/08/2016 Reported: 06/09/2016 11:56 [...] is no in flammation. CPT Codes: A: 35240-UQ7, 45678-OBK TESTING LAB LOCATION: [address] ??[address] COLLECTION SITE: Client: [facility] Location: RHOR (R) Specimen (Source) Anatomical Collection Method Collection Time Re ceived Time Location / / Volume Laterality Tissue specimen STRUCTURE OF LEFT 06/08/2016 10:40 (specimen) FOOT / Unknown AM SHEARING SHED WORKER Comment: Left foot tendon for Gross exam ination Agatha SHEPHERDM, Podiatry/Foot and Ankle Surgery LAB - [facility] Performing Organization Address City/State/ZIP Code Phon e Number COPATH Creatinine (06/08/2016 9:20 AM SHEARING SHED WORKER) P athologist Signature Creatinine 0.74 0.52 - 1.04 [place] mg/dL [facility] GFR Estimate 82 >60 [place] mL/min/1.7m [address] Comment: Non GFR Calc GFR Estimate If Black >90 >60 mL/min/1.7m2 F [facility] GFR Calc HOSP ITAL Specimen Anatomical Collection Method Collection Time Receive d Time (Source) Location / / Volume Laterality Blood specimen 06/08/2016 9:20 AM 016 9:24 (specimen) SHEARING SHED WORKER AM SHEARING SHED WORKER Dusty Sanchez MD LAB - BLOOD ORDERABLES Performing Organization Address City/[facility]/ZIP [facility] Phon e Number M [facility] [address] [place], [place] [address] [place] [address] [address] [place], [place] [address], [facility] [phone] Potassium (06/08/2016 9:20 AM SHEARING SHED WORKER) athologist Signature Potassium 3.8 3.4 - 5.3 [facility] mmol/L HOSPITAL Specimen Anatomical Collection Method Collection Time Receive d Time (Source) Location / / Volume Laterality Blood specimen 06/08/2016 9:20 AM 016 9:24 (specimen) SHEARING SHED WORKER AM SHEARING SHED WORKER Dusty Sanchez MD LAB - BLOOD ORDERABLES Performing Organization Address City/[facility]/ZIP [facility] Phon e Number [facility] [address] [place], [place] [address] [place] [address] [address] [place], [place] [address], [facility] [phone] (ABNORMAL) Glucose by meter (06/08/2016 8:58 AM SHEARING SHED WORKER) P athologist Signature Glucose 136 (H) 70 - 99 POINT OF CARE mg/dL TEST, GLUCOSE Specimen Anatomical Collection Method Collection Time Receive d Time (Source) Location / / Volume Laterality 06/08/2016 8:58 AM 6 9:00 SHEARING SHED WORKER AM SHEARING SHED WORKER Agatha Nieves DPM, Podiatry/Foot and Ankle Surgery LAB - [facility] POCT Performing Organization Address City/State/ZIP Code Phon e Number FV POINT OF CARE TEST, GLUCOSE POINT OF CARE TEST, GLUCOSE PATHOLOGY RESULT - HIM SCAN (06/08/2016 12:00 AM SHEARING SHED WORKER) Specimen (Source) Anatomical Location Collection Method / [...] (ROXICODONE) IR tablet Given 06/08/2016 12:23 PM SHEARING SHED WORKER 5 mg 5-10 mg 5-10 mg, Oral, ONCE PRN, moderate to severe pain, Starting on Elda 06/08/16 at 1107, For 1 dose, One time prior to discharge., Post-procedure documented in this encounter Active and Recently Administered Medications Times are shown in SHEARING SHED WORKER. Scheduled Medication Order 06/06/2016 06/07/2016 06/08/2016 ceFAZolin [...] as of this encounter Care Teams Financial Reporting Consultant Relationship Specialty Start Date End Date Vanda Guerrero MD PCP - General Internal Medicine 04/08/15 01/08/19 54[address] [facility] [place] [address] documented as of this encounter
--- OUTSIDE RECORDS SUMMARY | 2022-02-02 09:15 | XMS_ITS | Encounter Summary ---
:1965 Author Organization [facility] Address [address] [place] [address] Care Team Providers Name Role Phone Vanda Guerrero MD Primary Care Provider [phone] Encounter Details Date Type Department Care Team Description 05/22/2016 Orders Only [facility] Agatha Null, Peronea l tendon tear, left, subsequent encounter (Primary Dx); [facility] DPM, Podiatry/Foot Post-operative state [address] [facility] [place] and Ankle Surgery [place] [phone] [place] [phone] [facility] [address] [place], [place] [id number] (Wo rk) Social History Tobacco Use Types [...] How often do you attend presybeterian or baptist Patient refused 08/08/2019 services? Do [...] documented as of this encounter Care Teams Accounting Machine Operator Relationship Specialty Start Date End Date Vanda Guerrero MD PCP - General Internal Medicine 04/08/15 01/08/19 [address] [facility] [place] [address] documented as of this encounter
--- OUTSIDE RECORDS SUMMARY | 2022-02-02 09:15 | XMS_ITS | Encounter Summary ---
:1965 Author Organization [facility] Address [address] [place] [address] Care Team Providers Name Role Phone Vanda Guerrero MD Primary Care Provider [phone] Reason for Visit Reason Comments Consult follow-up regarding US done 05/05/16 - post menopausal bleeding x's 1 episode - 04/16-04/19 Encounter Details Date Type Department Care Team Description 05/11/2016 Office Visit [facility] Kodama, Christy Vagina l bleeding Pino Donnelly MD (Primary Dx) [address] [facility] [place] [address] [place] [address] [place] [address] [place] [address] (Wo rk) Social History [...] How often do you attend caodaism or holiness Patient refused 08/08/2019 services? Do [...] Comments Blood Pressure 110/68 05/11/2016 1:58 PM FEED MILL MANAGER Pulse 72 05/11/2016 1:58 PM FEED MILL MANAGER Temperature - - Respiratory Rate - - Oxygen Saturation - - Inhaled Oxygen Concentration - - Weight 85.3 kg (188 lb) 05/11/2016 1:58 PM FEED MILL MANAGER Height - - Body Mass Index 34.39 05/03/2016 11:19 AM FEED MILL MANAGER documented in this encounter Progress Notes Kallie [...] regular Nurse assisted visit. Kallie Blanco MA. MILL MANAGER Christy Ibarra MD - 05/11/2016 12:50 PM CST Subjective: Megan Choi, a 51 y/o female, presents for follow up of pelvic US. Patient reports light vaginal bleeding 04/16/16-04/19/16. [place] like a period, +PMS, breast tenderness,pelvic pressure. Reports pelvic pressure since February. Confirms minimal discharge, has now stopped. Denies bladder or bowel problems. Sexually active, endorses dyspareunia alleviated with estrace cream. Denies any other DIRECTOR OF SPECIAL EVENTS related problems. Patient notes persistent fatigue. Reports [...] behalf by Gisele Newberry, a trained medical equipment sales. The creation of this document is based the provider's statements to the medical equipment sales. Gisele Newberry May 11, 2016 12:50 PM [...] in this document, created by the medical equipment sales for me, accurately reflects the services I personally performed and the decisions made by me. I have reviewed and approved this document for accuracy prior to leaving the patient care area. 05/11/2016 12:51 PM Christy Ibarra M.D. MILL MANAGER documented in this encounter Plan of Treatment Not on filedocumented as of this encounter Visit Diagnoses Diagnosis Vaginal bleeding - Primary Other specified noninflammatory disorder of vagina documented in this encounter Additional Health Concerns Assessment Noted Time PHQ-9 Depression Total Score: 11 05/02/2016 7:09 AM CS T documented as of this encounter Care Teams Clinical Lab Scientist Relationship Specialty Start Date End Date Vanda Guerrero MD PCP - General Internal Medicine 04/08/15 01/08/19 0431 [facility] [place] [address] documented as of this encounter
--- OUTSIDE RECORDS SUMMARY | 2022-02-02 09:15 | XMS_ITS | Encounter Summary ---
:1965 Author Organization [facility] Address [address] [place] [address] Care Team Providers Name Role Phone Vanda Guerrero MD Primary Care Provider [phone] Reason for Visit (Routine) - Closed Specialty Diagnoses / Procedures Referred By Contact Refer red To Contact Radiology / Radiology. Diagnoses Epic Order, sb pt. [place] [address] [place] [address] [place] [address] Phone: Fax: Referral ID Status Reason Start Date Expiration Date Visits Requ ested Visits Authorized [id number] Closed 05/05/2016 05/03/2017 1 1 Encounter Details Date Type Department Care Team Description 05/05/2016 Hospital Encounter [facility] Agatha Null B ilateral ankle [facility] DPM, joint pain [address] [place] [address] [place] [address] [place] [address] [facility] [address] [place], [place] [id number] Social History Tobacco Use Types Packs/Day Years [...] How often do you attend tenriism or zoroastrian Patient refused 08/08/2019 services? Do [...] or female climacteric states fluticasone (FLONASE) 50 [place] 1-2 sprays 3 Bottle 3 05/0306/12/2017 MCG/ACT [...] Bilateral ankle R esults for this CONTRAST GEOPHYSICAL ENGINEER joint pain procedure are i n the results section. documented in this encounter Results MR Ankle Left w/o Contrast (05/05/2016 1:32 PM GEOPHYSICAL ENGINEER) Anatomical Region Laterality Modality Left Ankle, SUBRAD MR MSK, UMP MR MSK Ma gnetic Resonance Specimen (Source) Anatomical Location Collection Method / Collectio n Time Received Time / Laterality Volume Impressions 05/05/2016 4:51 PM GEOPHYSICAL ENGINEER IMPRESSION: ?? 1. Type II accessory navicular [...] ROHAN PINK MD Narrative 05/05/2016 4:51 PM GEOPHYSICAL ENGINEER MR ANKLE LEFT WITHOUT CONTRAST 05/05/2016 1:32 [...] documented as of this encounter Care Teams Paramedic Supervisor Relationship Specialty Start Date End Date Vanda Guerrero MD PCP - General Internal Medicine 04/08/15 01/08/[address] [place] [address] documented as of this encounter
--- OUTSIDE RECORDS SUMMARY | 2022-02-02 09:15 | XMS_ITS | Encounter Summary ---
:1965 Author Organization [facility] Address [address] [place] [address] Care Team Providers Name Role Phone Vanda Guerrero MD Primary Care Provider [phone] Vanda Guerrero MD Unavailable Reason for Visit [facility] Physical Therapy (Routine) - Closed Specialty Diagnoses / Procedures Referred By Contact Refer red To Contact Physical Therapy Diagnoses new pt needs paperwork post peroneal tendon repair surgery left foot. / Agatha Null DPM, Pod @ [facility] Agatha Null DPM, Candy Disla, PT Procedures [facility]TREM[facility]IAL Podiatry/Foot and [facility] [address] [place] [address] [place] [address] [place] [address] Referral ID Status Reason Start Date Expiration Date Visits V isits Requested Authorized LINUS/BC/LFOOT Closed 07/03/2016 06/10/2017 20 18 Encounter Details Date Type Department Care Team Description 08/04/2016 [facility], left; Rehabilitation PT Aftercare following surgery [facility] [address] [facility] [address] [place] [address] [place], [place] [phone] [address] Social History Tobacco Use Types Packs/Day [...] How often do you attend sabianism or zoroastrianism Patient refused 08/08/2019 services? 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 KILN BURNER HELPER Aftercare following surgery of the musculoskeletal system Z THERAPEUTIC Routine 08/04/2016 10:35 AM Ankle pain, left EXERCISES KILN BURNER HELPER Aftercare following surgery of the musculoskeletal system documented in this encounter Visit Diagnoses Diagnosis Ankle pain, left Pain in joint, ankle and foot Aftercare following surgery of the muscu loskeletal system Aftercare following surgery of the [facility] [place] [place] [place], NEC documented in this encounter Additional Health Concerns Assessment Noted Time PHQ-9 Depression Total Score: 11 05/02/2016 7:09 AM CS T documented as of this encounter Care Teams Electronics Lead Relationship Specialty Start Date End Date Vanda Guerrero MD PCP - General Internal Medicine 04/08/15 01/08/19 [address] [facility] [place] [address] Vanda uGerrero MD PCP - Assigned PCP 07/24/16 06/15/[address] [place] [address] [place] [id number] documented as of this encounter
--- OUTSIDE RECORDS SUMMARY | 2022-02-02 09:15 | XMS_ITS | Encounter Summary ---
:1965 Author Organization [place] Address [address] [place] [address] Care Team Providers Name Role Phone Vanda Guerrero MD Primary Care Provider Reason for Visit Auth/Cert Specialty Diagnoses / Procedures Referred By Contact Refer red To Contact Surgery Diagnoses Peroneal Tendon tear Rh Periop Services Procedures REPAIR TENDON PERONEAL [address] [place], [place] [address]-5017 Fax: Referral ID Status Reason Start Date Expiration Date Visits Requ ested Visits Authorized [id number] 1 1 Encounter Details Date Type Department Care Team Description 06/08/2016 Surgery [facility] Agatha Null DPM, Le ft peroneal tendon [facility] Podiatry/Foot and repair and transfer [address] [facility] [place] [address] [place] [address] [facility] [address] [place], [place] [address] (Wo rk) Surgery Details [...] How often do you attend congregational or mandaeism Patient refused 08/08/2019 services? Do [...] Comments Blood Pressure 156/103 06/08/2016 11:20 AM COMMODITY LOAN CLERK Pulse - - Temperature 36.6 ??C (97.9 ??F) 06/08/2016 11:15 AM COMMODITY LOAN CLERK Respiratory Rate 20 06/08/2016 11:20 AM COMMODITY LOAN CLERK Oxygen Saturation 100% 06/08/2016 11:20 AM COMMODITY LOAN CLERK Inhaled Oxygen Concentration - - Weight 87.1 kg (192 lb 1.6 oz) 06/08/2016 8:52 AM COMMODITY LOAN CLERK Height 157.5 cm (5' 2) 06/08/2016 8:52 AM COMMODITY LOAN CLERK Body Mass Index 35.14 06/08/2016 8:52 AM COMMODITY LOAN CLERK documented in this encounter Discharge Instructions Discharge [...] take any ibuprofen products until 3:15 pm. ODITY LOAN CLERK documented in this encounter Medications at Time [...] or female climacteric states fluticasone (FLONASE) 50 Carbon 1-2 sprays 3 Bottle 3 05/0306/12/2017 MCG/ACT [...] days available in the hospital surgical encounter. ODITY LOAN CLERK Source Note - Noreen Corbett MD - 06/01/2016 10:17 AM COMMODITY LOAN CLERK [address] [facility] [address] Dept: [phone] PRE-OP EVALUATION: Today's date: 06/01/2016 Megan Choi (: 1965) presents for pre-operative evaluation assessment as requested by Dr. Null. She requires evaluation and anesthesia risk assessment prior to undergoing surgery/procedure for treatment of left ankle . Proposed procedure: repair of tendon in left ankle Date of Surgery/ Procedure: 06/08/16 Time of Surgery/ Procedure: 10:10am Hospital/Surgical Facility: [facility] Primary Physician: Vanda Guerrero Type of Anesthesia [...] ??? Obesity 04/13/2008 ??? Family history of VA (myocardial infarction) 04/13/2008 At early age, father VA at age 40 Past Medical History Diagnosis [...] ??? fluticasone (FLONASE) 50 MCG/ACT nasal spray Carbon 1-2 sprays into both nostrils daily 3 [...] cardiovascular risks for perioperative complications such as (VA, PE, VFib and 3?? AV Block): No [...] evaluation report is provided to requesting physician. [facility] Preop Guidelines ODITY LOAN CLERK documented in this encounter Nursing Notes Hortencia Sawyer, RN - 06/08/2016 12:26 PM CST Pharmacy [facility] called. Prescription question. Clarified with MD. Will receive the Enoxaparin 100mg/1mlwill give same dose just changing the dispensing container. V. O. Dr Karthik Null ODITY LOAN CLERK documented in this encounter Miscellaneous Notes Op [...] EM#[id number] Name: MEGAN CHOI MRN: [id number] Account: [id number] : 1965 Procedure Date: 06/08/2016 Document: [id number] ODITY LOAN CLERK Brief Op Note - Agatha Null DPM, Podiatry/Foot and Ankle Surgery - 06/08/2016 11:19 AM CST [facility] Brief Operative Note Pre-operative diagnosis: Peroneal [...] AM Post-operative st ate Results for this COMMODITY LOAN CLERK procedure are i n the results section. SURGICAL PATHOLOGY Routine 06/08/2016 10:40 AM Re sults for this EXAM COMMODITY LOAN CLERK procedure are i n the results section. REPAIR, TENDON, 06/08/2016 9:59 AM Peroneal Tendon tea r PERONEAL COMMODITY LOAN CLERK Special Needs 5'2 / 191# stated POTASSIUM STAT 06/08/2016 9:20 AM COMMODITY LOAN CLERK Resul ts for this procedure are i n the results section . CREATININE STAT 06/08/2016 9:20 AM COMMODITY LOAN CLERK Resul ts for this procedure are i n the results section . GLUCOSE BY METER Routine 06/08/2016 8:58 AM COMMODITY LOAN CLERK R esults for this procedure are i n the results section . PATHOLOGY RESULT - HIM 06/08/2016 12:00 AM COMMODITY LOAN CLERK SCAN documented in this encounter Results (ABNORMAL) Glucose by meter (06/08/2016 11:52 AM COMMODITY LOAN CLERK) P athologist Signature Glucose 159 (H) 70 - 99 POINT OF CARE mg/dL TEST, GLUCOSE Specimen Anatomical Collection Method Collection Time Receive d Time (Source) Location / / Volume Laterality 06/08/2016 11:52 06/08/2016 AM COMMODITY LOAN CLERK 11:55 AM COMMODITY LOAN CLERK Agatha Null DPM, Podiatry/Foot and Ankle Surgery LAB - [facility] POCT Performing Organization Address City/State/ZIP Code Phon e Number FV POINT OF CARE TEST, GLUCOSE POINT OF CARE TEST, GLUCOSE Surgical pathology exam (06/08/2016 10:40 AM COMMODITY LOAN CLERK) Component Value Ref Test Analysis Performed At [facility] Range Method Time Signature Copath Report Patient Name: MEGAN CHOI MR#: [id number] Specimen #: [id number] Collected: 06/08/2016 Received: 06/08/2016 Reported: 06/09/2016 11:56 [...] is no in flammation. CPT Codes: A: 58888-RK9, 00145-QZH TESTING LAB LOCATION: [address] ??[address] COLLECTION SITE: Client: [facility] Location: RHOR (R) Specimen (Source) Anatomical Collection Method Collection Time Re ceived Time Location / / Volume Laterality Tissue specimen STRUCTURE OF LEFT 06/08/2016 10:40 (specimen) FOOT / Unknown AM COMMODITY LOAN CLERK Comment: Left foot tendon for Gross exam ination Agatha J Chaka DPM, Podiatry/Foot and Ankle Surgery LAB - [facility] [facility] Performing Organization Address City/State/ZIP Code Phon e Number COPATH Creatinine (06/08/2016 9:20 AM COMMODITY LOAN CLERK) athologist Signature Creatinine 0.74 0.52 - 1.04 [place] mg/dL [facility] GFR Estimate 82 >60 [place] mL/min/1.7m [address] Comment: Non GFR Calc GFR Estimate If Black >90 >60 mL/min/1.7m2 F [facility] GFR Calc HOSP ITAL Specimen Anatomical Collection Method Collection Time Receive d Time (Source) Location / / Volume Laterality Blood specimen 06/08/2016 9:20 AM 016 9:24 (specimen) COMMODITY LOAN CLERK AM COMMODITY LOAN CLERK Dusty Sanchez MD LAB - BLOOD ORDERABLES Performing Organization Address City/[facility]/ZIP Code Phon e Number M [facility] [address] [place], [place] [address] [facility] [address] [place] [address], [facility] [phone] Potassium (06/08/2016 9:20 AM COMMODITY LOAN CLERK) athologist [facility] Potassium 3.8 3.4 - 5.3 [facility] mmol/L [facility] Specimen Anatomical Collection Method Collection Time Receive d Time (Source) Location / / Volume Laterality Blood specimen 06/08/2016 9:20 AM 016 9:24 (specimen) COMMODITY LOAN CLERK AM COMMODITY LOAN CLERK Dusty Sanchez MD LAB - BLOOD ORDERABLES Performing Organization Address City/[facility]/ZIP [facility] Phon e Number M [facility] [address] [place], [place] [address] [facility] [address] [place] [address], [facility] [phone] (ABNORMAL) Glucose by meter (06/08/2016 8:58 AM COMMODITY LOAN CLERK) athologist Signature Glucose 136 (H) 70 - 99 POINT OF CARE mg/dL TEST, GLUCOSE Specimen Anatomical Collection Method Collection Time Receive d Time (Source) Location / / Volume Laterality 06/08/2016 8:58 AM 6 9:00 COMMODITY LOAN CLERK AM COMMODITY LOAN CLERK Agatha Null DPM, Podiatry/Foot and Ankle Surgery LAB - [place] POCT Performing Organization Address City/State/ZIP Code Phon e Number FV POINT OF CARE TEST, GLUCOSE POINT OF CARE TEST, GLUCOSE PATHOLOGY RESULT - HIM SCAN (06/08/2016 12:00 AM COMMODITY LOAN CLERK) Specimen (Source) Anatomical Location Collection Method / [...] 11:01 10 mLs Operative EPINEPHrine 1:200,000 AM COMMODITY LOAN CLERK Sit e/Surgical Site injection PRN, Starting on Elda 06/08/16 at 1101, Intra-procedure oxyCODONE (ROXICODONE) IR tablet 5-10 mg Given 06/08/2016 12:23 PM COMMODITY LOAN CLERK 5 mg 5-10 mg, Oral, ONCE PRN, moderate to severe pain, Starting on Elda 06/08/16 at 1107, For 1 dose, One time prior to discharge., Post-procedure documented in this encounter Active and Recently Administered Medications Times are shown in COMMODITY LOAN CLERK. Scheduled Medication Order 06/06/2016 06/07/2016 06/08/2016 ceFAZolin [...] documented as of this encounter Care Teams Delivery Room Supervisor Relationship Specialty Start Date End Date Vanda Guerrero MD PCP - General Internal Medicine 04/08/15 01/08/19 [address] [facility] [place] [address] documented as of this encounter
--- OUTSIDE RECORDS SUMMARY | 2022-02-02 09:15 | XMS_ITS | Encounter Summary ---
:1965 Author Organization [facility] Address [address] [place] [address] Care Team Providers Name Role Phone Vanda Guerrero MD Primary Care Provider [phone] Reason for Visit Reason Onset Date Comments Refill Request 06/05/2016 Zanaflex Encounter Details Date Type Department Care Team Description 06/05/2016 [facility]ill [facility] Vanda Guerrero R efill Request Clinic [facility] SAL[facility] (Zanaflex) [address] [facility] [address] [place] [address] [place] [phone] Social History Tobacco Use Types Packs/Day Years [...] How often do you attend orthodox or taoist Patient refused 08/08/2019 services? Do [...] Nicole Magana RN - 06/05/2016 1:16 PM METAL CANS SUPERVISOR Zanaflex Last Written Prescription Date: 12/31/2015 Last Fill Quantity: 90 tablet, # refills: 5 Last Office Visit with [facility], [facility] or Health prescribing provider: 06/01/2016 with AF (pre-op) Future Office visit: Next 5 appointments (look out 90 days) Jun 13, 2016 10:00 AM Return Visit with Agatha Null DPM, [facility] [address] [place] [address] Routing refill request to provider for review/approval because: Drug not on the [facility], [facility] or Health refill protocol or controlled substance Nicole Magana, RN, BSN, PHN L CANS SUPERVISOR documented in this encounter Plan of Treatment Not on filedocumented as of this encounter Visit Diagnoses Diagnosis Cervicalgia - Primary History of fusion of cervical spine Arthrodesis status History of lumbar fusion documented in this encounter Additional Health Concerns Assessment Noted Time PHQ-9 Depression Total Score: 11 05/02/2016 7:09 AM CS T documented as of this encounter Care Teams Stitcher Tape Controlled Machine Relationship Specialty Start Date End Date Vanda Guerrero MD PCP - General Internal Medicine 04/08/15 01/08/[address] [facility] [place] [address] documented as of this encounter
--- OUTSIDE RECORDS SUMMARY | 2022-02-02 09:15 | XMS_ITS | Encounter Summary ---
:1965 Author Organization [facility] Address [address] [place] [address] Care Team Providers Name Role Phone Vanda Guerrero MD Primary Care Provider [phone] Reason for Visit Reason Comments Surgical Followup Left foot peroneal tendon re pair/transfer DOS 06/08/16 Encounter Details Date Type Department Care Team Description 06/13/2016 Office Visit [facility] Agatha Null, Post-op erative state (Primary Dx); Clinic [place] DPM, Podiatry/Foot Burning with urination [address] [facility] and [place] [address] [place] [address] [place] [address] [place] [address] (Wo rk) Social History Tobacco [...] How often do you attend congregational or mosque Patient refused 08/08/2019 services? Do [...] Comments Blood Pressure 134/82 06/13/2016 9:59 AM JAVASCRIPT SOFTWARE ENGINEER Pulse - - Temperature - - Respiratory Rate - - Oxygen Saturation - - Inhaled Oxygen Concentration - - Weight 86.6 kg (191 lb) 06/13/2016 9:59 AM JAVASCRIPT SOFTWARE ENGINEER Height 157.5 cm (5' 2) 06/13/2016 9:59 AM JAVASCRIPT SOFTWARE ENGINEER Body Mass Index 34.93 06/13/2016 9:59 AM JAVASCRIPT SOFTWARE ENGINEER documented in this encounter Patient Instructions Patient InstructionsLarry Michael - 06/13/2016 10:[address] [facility] Schedule Follow up in 1 week Sunday AM Sunday [facility] [address] [address] [facility] [address] [address] [place] [address] [facility] [address] [place] [address] Sunday PM & Sunday AM Sunday PM Surgery Scheduling Line: [phone] [facility] [place] [address] [place] [address] [facility] [address] [address] [place] [address] Appointment [phone] General After Hours: Patient [phone] SCRIPT SOFTWARE ENGINEER documented in this encounter Progress Notes Agatha Null, MARÍA, Podiatry/Foot and Ankle Surgery - 06/13/2016 10:03 AM JAVASCRIPT SOFTWARE ENGINEER Podiatry / Foot and Ankle Surgery Progress [...] completed using cuff size: kait Michael MA SCRIPT SOFTWARE ENGINEER documented in this encounter Plan of Treatment Not on filedocumented as of this encounter Procedures Procedure Name Priority Date/Time Associated Diagnosis Comme nts URINE CULTURE Routine 06/13/2016 10:21 AM Burning with Results for this JAVASCRIPT SOFTWARE ENGINEER urination procedure are i n the results section . documented in this encounter Results (ABNORMAL) Urine Culture Aerobic Bacterial (06/13/2016 10:21 AM JAVASCRIPT SOFTWARE ENGINEER) Component Value Ref Test Analysis Performed At [facility] Range Method Time Signature Specimen Midstream Urine [facility] Culture Micro 10,000 to INFECTIOUS 50,000 DISEASE colonies/mL DIAGNOSTIC Escherichia LABORATORY coli (A) Micro Report FINAL INFECTIOUS Status 06/14/2016 DISEASE DIAGNOSTIC LABORATORY Organism: 10,000 to INFECTIOUS 50,000 DISEASE colonies/mL DIAGNOSTIC Escherichia LABORATORY coli Specimen Anatomical Collection Method Collection Time Receive d Time (Source) Location / / Volume Laterality Urine specimen 06/13/2016 10:21 7 (specimen) AM JAVASCRIPT SOFTWARE ENGINEER 10:22 AM JAVASCRIPT SOFTWARE ENGINEER Organism Antibiotic Method Susceptibility 10,000 to 50,000 [...] Code Phon e Number INFECTIOUS DISEASES [address] [place] [address] DIAGNOSTIC LABORATORY, [address] [address] [place] INFECTIOUS DISEASE [address] [place], [place] [address] DIAGNOSTIC LABORATORY documented in this encounter Visit Diagnoses Diagnosis Post-operative state - Primary Other postprocedural status Burning with urination Dysuria documented in this encounter Additional Health Concerns Assessment Noted Time PHQ-9 Depression Total Score: 11 05/02/2016 7:09 AM CS T documented as of this encounter Care Teams Motor Tester Relationship Specialty Start Date End Date Vanda Guerrero MD PCP - General Internal Medicine 04/08/15 01/08/19 [address] [facility] [place] [address] documented as of this encounter
--- OUTSIDE RECORDS SUMMARY | 2022-02-02 09:15 | XMS_ITS | Encounter Summary ---
:1965 Author Organization [place] Address [facility] [place] [address] Care Team Providers Name Role Phone Vanda Guerrero MD Primary Care Provider [phone] Reason for Visit Reason Comments Facial Pain 2-3 days, left side of face, swelling, pain with eating, tender to the touch. URI 1 week, fever, congestion, c ough, ear pain and dizziness. Encounter Details Date Type Department Care Team Description 07/13/2016 Office Visit [facility] Santos Alegria Acute si nusitis with symptoms > 10 days (Primary Dx); Urgent Care Pino Benítez PA-C Acute suppurative otitis media of both e ars without spontaneous rupture of tympanic membranes, recurrence not specified [address] [place] [address] [address] [address] [place] [address] Social History Tobacco Use [...] Comments Blood Pressure 112/68 07/13/2016 11:09 AM ASPHALT SCREED OPERATOR Pulse 94 07/13/2016 11:09 AM ASPHALT SCREED OPERATOR Temperature 37.1 ??C (98.7 ??F) 07/13/2016 11:09 AM ASPHALT SCREED OPERATOR Respiratory Rate - - Oxygen Saturation 98% 07/13/2016 11:09 AM ASPHALT SCREED OPERATOR Inhaled Oxygen Concentration - - Weight 86.6 kg (191 lb) 07/13/2016 11:09 AM ASPHALT SCREED OPERATOR Height 157.5 cm (5' 2) 07/13/2016 11:09 AM ASPHALT SCREED OPERATOR Body Mass Index 34.93 07/13/2016 11:09 AM ASPHALT SCREED OPERATOR documented in this encounter Patient Instructions [...] a towel soaked in hot water. Or, home staging specialist theshower and direct the hot spray onto your face. Using a vaporizer along with a menthol rub at night may also help.? An??expectorant??containing guaifenesin may help thin the mucus and promote drainage from the sinuses. ?? Kdrj-qfq-hbfatmt??decongestants??may be used unless a similar medicine was [...] decongestants. They can raise blood pressure.) ?? Upfo-rlg-wrekjke??antihistamines??may help if allergies contributed to your sinusitis. [...] Symptoms not resolving within 10 days ?? 5425-4999 [employer]. [address] [place] [address]. All rights reserved. This information is not intended as a substitute for professional medical care. Always follow your healthcare professional's instructions. ALT SCREED OPERATOR documented in this encounter Progress Notes Santos [...] fail to fully resolve with above tx. ALT SCREED OPERATOR documented in this encounter Nursing Notes Gisele [...] using cuff size: large Gisele Patel MA ALT SCREED OPERATOR documented in this encounter Plan of [...] as of this encounter Care Teams Traffic Safety Administrator Relationship Specialty Start Date End Date Vanda Guerrero MD PCP - General Internal Medicine 04/08/15 01/08/19 [address] [facility] [address] [place], [place] [address] documented as of this encounter
--- OUTSIDE RECORDS SUMMARY | 2022-02-02 09:16 | XMS_ITS | Encounter Summary ---
:1965 Author Organization [facility] Address [address] [place] [address] Care Team Providers Name Role Phone Vanda Guerrero MD Primary Care Provider [phone] Reason for Visit Reason Onset Date Comments Refill Request 12/23/2015 TOPIRAMATE 50MG Refill Request 12/23/2015 OMEPRAZOLE 20MG Encounter Details Date Type Department Care Team Description 12/23/2015 Refill [facility]3] Vanda Lal, Refill Request [address] Priscilla Bass MD (TOPIRAMATE 50MG); [place] [address] [facility]8 [facility] Refill Request [phone] NASIR ANDRE (OMEPRAZOLE 20MG) [place] [address] [...] How often do you attend worship or latter day Patient refused 08/08/2019 services? [...] # refills: PRN Last Office Visit with [facility], [facility] or Health prescribing provider: 12/22/2015 BP Readings from Last 3 Encounters: 12/22/15 110/76 11/01/15 114/66 09/29/15 114/68 CREATININE Date Value Ref Range Status 09/30/2015 0.67 0.52 - 1.04 mg/dL Final OMEPRAZOLE 20MG Last Written Prescription Date: 10/06/2014 Last Fill Quantity: 90, # refills: PRN Last Office Visit with [facility], [facility] or [employer] prescribing provider: 12/22/2015 documented in this encounter [...] documented as of this encounter Care Teams Theatrical Trouper Relationship Specialty Start Date End Date Vanda Guerrero MD PCP - General Internal Medicine 04/08/15 01/08/19 [address] [facility] [place] [address] documented as of this encounter
--- OUTSIDE RECORDS SUMMARY | 2022-02-02 09:16 | XMS_ITS | Encounter Summary ---
:1965 Author Organization [place] Address [address] [place] [address] Care Team Providers Name Role Phone Vanda Guerrero MD Primary Care Provider [phone] Reason for Visit Reason Comments Diabetes Lipids Recheck Medication Encounter Details Date Type Department Care Team Description 12/22/2015 Office Visit [facility] Vanda Guerrero Type 2 d iabetes mellitus without complication (H) (Primary Dx); Pino Toribio MD Recurrent major depressive disorder, rem ission status unspecified (H); [address] [facility] Hyperlipidemia LDL goal <100 ; [place] [address] [facility] Fibromyalgia; [phone] [place] [address] Symptomatic menopausal or female climact ro[place]anna states; [phone] Anxiety; (Work) History of lumbar fusion; Colon [...] How often do you attend pentecostalism or sikhism Patient refused 08/08/2019 services? Do [...] Guerrero MD - 12/22/2015 9:31 AM CDT group leader your FIT test for colon cancer at [...] Unit: TSI index (Note) Test Performed by: [facility] - [address] [address] [facility]: Huseyin Dash II, M.D., Ph.D. ASSESSMENT/PLAN: ICD-10-CM [...] neuropathy Z13.89 Normal foot exam Patient Instructions group leader your FIT test for colon cancer at [...] current medications for now Vanda Guerrero MD [facility] documented in this encounter Nursing Notes Lori [...] Time Signature Occult Blood Negative NEG [facility] Specimen Anatomical Collection Method Collection Time Receive d Time (Source) Location / / Volume Laterality Stool specimen 01/07/2016 11:41 6 (specimen) AM CDT 11:42 AM CDT Vanda Guerrero MD LAB - STOOLS ORDERABLES Performing Organization Address City/State/ZIP Code Phon e Number [facility] [address] [place], [place] [phone] [place] [address] documented in this encounter Visit Diagnoses Diagnosis [...] documented as of this encounter Care Teams Electrician Supervisor Substation Relationship Specialty Start Date End Date Vanda Guerrero MD PCP - General Internal Medicine 04/08/15 01/08/19 [address] [facility] [place] [address] documented as of this encounter
--- OUTSIDE RECORDS SUMMARY | 2022-02-02 09:16 | XMS_ITS | Encounter Summary ---
:1965 Author Organization [place] Address [address] [place] [address] Care Team Providers Name Role Phone Vanda Guerrero MD Primary Care Provider [phone] Reason for Visit Reason Comments Menopausal Sx Encounter Details Date Type Department Care Team Description 09/29/2015 Office Visit [facility] Vanda Guerrero Left-ant ed low back pain with left-sided sciatica (Primary Dx); Pino Toribio MD Breast pain, left; [address] [place] [address] Type 2 diabetes mellitus wit hout complication (H); [place] [address] [facility] Major depressive disorder, recurrent epi sode, moderate (H); [phone] [place] [address] Hypertension goal BP (blood pressure) < 130/80; [phone] Hyperlipidemia LDL goal <100; (Work) History of [...] How often do you attend alevism or cheondoism Patient refused 08/08/2019 services? Do [...] three times daily if you can Call [phone] to set up a special mammogram and [...] Two temporarily, and 2 permanently. Provides primary child care attendant for grandchildren. [age] year old is 19 [...] three times daily if you can Call [phone] to set up a special mammogram and [...] CDT) athologist Signature Cholesterol 152 <200 mg/dL [facility] Triglycerides 109 <150 mg/dL [facility] Comment: Fasting specimen HDL Cholesterol 51 >49 mg/dL [facility]I CS [facility] LDL Cholesterol Calculated 79 <100 mg/dL FA [facility] Comment: Desirable: <100 mg/dl Non HDL Cholesterol 101 <130 mg/dL [facility] Specimen Anatomical Collection Method Collection Time Receive d Time (Source) Location / / Volume Laterality Blood specimen 12/03/2015 8:50 AM 016 8:55 (specimen) CDT AM CDT Vanda Guerrero MD LAB - BLOOD ORDERABLES Performing Organization Address City/State/ZIP Code Phon e Number [facility] [address] [place] [address] Microalbumin quantitative random urine (09/30/2015 9:22 AM CDT) athologist Signature Creatinine 174 mg/dL ETHEL Urine [facility] Albumin Urine 10 mg/L [facility] mg/L [facility] Albumin Urine 5.67 0 - 25 [place] mg/g Cr mg/g Cr [facility] Specimen Anatomical Collection Method Collection Time Receive d Time (Source) Location / / Volume Laterality Urine specimen 09/30/2015 9:22 AM 016 9:23 (specimen) CDT AM CDT Vanda Guerrero MD LAB - URINE ORDERABLES Performing Organization Address City/State/ZIP Code Phon e Number [facility] [address] [place] [address] [phone] [facility] [address] [place] [address], U [phone] Vitamin D Deficiency (09/30/2015 9:22 AM CDT) athologist Signature Vitamin D 36 20 - 75 [facility] Deficiency ug/L [facility] Comment: Season, race, dietary intake, and treatm ent affect the concentration of 85-qznyfry-Yamswws D. Values may decrea se during winter [...] Organization Address City/State/ZIP Code Phon e Number [address] Vitamin B12 (09/30/2015 9:22 AM CDT) athologist Signature Vitamin B12 482 193 - 986 [facility] pg/mL [facility] Comment: Interp: [phone] = Normal Specimen Anatomical Collection Method Collection Time Receive d Time (Source) Location / / Volume Laterality Blood specimen 09/30/2015 9:22 AM 016 9:23 (specimen) CDT AM CDT Vanda Guerrero MD LAB - BLOOD ORDERABLES Performing Organization Address City/State/ZIP Code Phon e Number [facility] [address] (ABNORMAL) TSH with free T4 reflex (09/30/2015 9:22 AM CDT) P athologist Signature TSH 0.07 (L) 0.40 - [facility] 4.00 mU/L [facility] Specimen Anatomical Collection Method Collection Time Receive d Time (Source) Location / / Volume Laterality Blood specimen 09/30/2015 9:22 AM 016 9:23 (specimen) CDT AM CDT Vanda Guerrero MD LAB - BLOOD ORDERABLES Performing Organization Address City/State/ZIP Code Phon e Number [facility] [address] [place] [address] (ABNORMAL) Comprehensive metabolic panel (09/30/2015 9:22 AM CDT) [facility] gist Method Time Signature Sodium 145 (H) 133 - 144 E[facility] mmol/L [facility] Potassium 4.0 3.4 - 5.3 E[facility] mmol/L [facility] Chloride 110 (H) 94 - 109 [place] mmol/L [facility] Carbon Dioxide 25 20 - 32 E[facility] mmol/L [facility] Anion Gap 10 3 - 14 E[facility] mmol/L [facility] Glucose 104 (H) 70 - 99 E[facility] mg/dL [facility] Urea Nitrogen 10 7 - 30 E[facility] mg/dL [facility] Creatinine 0.67 0.52 - ETHEL 1.04 [facility] mg/dL [facility] GFR Estimate >90 >60 E[facility] Non GFR Calc mL/min/1. CLINICS 7m2 [facility] GFR Estimate If >90 >60 ETHEL Black GFR Calc mL/min/1. CLIN ICS 7m2 [facility] Calcium 9.7 8.5 - [facility] 10.1 [facility] mg/dL [facility] Bilirubin Total 0.4 0.2 - 1.3 [facility] mg/dL [facility] Albumin 3.6 3.4 - 5.0 E[facility] g/dL [facility] Protein Total 8.2 6.8 - 8.8 [facility] g/dL [facility] Alkaline 148 40 - 150 [facility] Phosphatase U/L [facility] ALT 47 0 - 50 [facility] U/L [facility] AST 19 0 - 45 [facility] U/L [facility] Specimen Anatomical Collection Method Collection Time Receive d Time (Source) Location / / Volume Laterality Blood specimen 09/30/2015 9:22 AM 016 9:23 (specimen) CDT AM CDT Vanda Guerrero MD LAB - BLOOD ORDERABLES Performing Organization Address City/State/ZIP Code Phon e Number [facility] [address] [place] [address] (ABNORMAL) Hemoglobin A1c (09/30/2015 9:22 AM CDT) P athologist Signature Hemoglobin A1C 6.2 (H) 4.3 - 6.0 [facility] Specimen Anatomical Collection Method Collection Time Receive d Time (Source) Location / / Volume Laterality Blood specimen 09/30/2015 9:22 AM 016 9:23 (specimen) CDT AM CDT Vanda Guerrero MD LAB - BLOOD ORDERABLES Performing Organization Address City/State/ZIP Code Phon e Number [facility] [place] [address] [facility] [place] [address] [phone] documented in this encounter Visit Diagnoses Diagnosis [...] documented as of this encounter Care Teams Farm Contractor Buyer Relationship Specialty Start Date End Date Vanda Guerrero MD PCP - General Internal Medicine 04/08/15 01/08/19 [address] [facility] [place] [address] documented as of this encounter
--- OUTSIDE RECORDS SUMMARY | 2022-02-02 09:16 | XMS_ITS | Encounter Summary ---
:1965 Author Organization [place] Address [address] [place] [address] Care Team Providers Name Role Phone Vanda Guerrero MD Primary Care Provider [phone] Reason for Visit Reason Onset Date Comments Refill Request 11/05/2015 simvastatin, duloxet ine, citalopram Encounter Details Date Type Department Care Team Description 11/05/2015 Refill [facility] Vanda Lal, Refill Request [address] [place] MD (simvastatin, [place] [phone] [place] [address] duloxetine, citalopram) [phone] [facility] [place] [phone] (Wo rk) Social History Tobacco Use Types [...] How often do you attend restorationism or mormon Patient refused 08/08/2019 services? Do [...] this regularly per pharmacy. Prescription approved per [facility] Refill Protocol. CITALOPRAM Last Written Prescription Date: [...] Last Office Visit with [facility], [facility] or [facility] prescribing provider: 11/01/2015 Next 5 appointments (look out 90 days) Dec 22, 2015 9:00 AM Office Visit with Vanda Guerrero MD [facility] [address] [place] [address] [place] [phone] CHOL 153 08/10/2014 HDL 61 08/10/2014 LDL [...] as of this encounter Care Teams Passenger Locomotive Engineer Relationship Specialty Start Date End Date Vanda Guerrero MD PCP - General Internal Medicine 04/08/15 01/08/19 [address] [facility] [address] [place], [place] [address] documented as of this encounter
--- OUTSIDE RECORDS SUMMARY | 2022-02-02 09:16 | XMS_ITS | Encounter Summary ---
:1965 Author Organization [place] Address [address] [place] [address] Care Team Providers Name Role Phone Vanda Guerrero MD Primary Care Provider [phone] Vanda Guerrero MD Unavailable JeanaNoreen girard PATIENT SITTER CRUDE OIL TREATER Unavailable JeanaNoreen girard PATIENT SITTER CRUDE OIL TREATER Unavailable [phone] JeanaNoreen girard PATIENT SITTER CRUDE OIL TREATER Primary Care Provider Kalyan Galvan Unavailable Unavailable Lashae Trevino [facility] Unavailable [phone] Eduardo Sharma MD Unavailable Rios Monteiro MD Unavailable Marcelo Artis PA-C Unavailable [phone] Rodrigo Man PA-C Unavailable Encounter Details Date Type Department Care Team Description 02/11/2016 [facility] Vanda Ray MD [facility] [address] [place] [address] [place] [address] (Wo rk) Social History [...] How often do you attend druze or mandaen Patient refused 08/08/2019 services? Do [...] documented as of this encounter Care Teams Type Copyist Relationship Specialty Start Date End Date Vanda Guerrero, PCP - General Internal Medicine 04/08/15 01/08/[address] [place] [address] [place] [phone] Vanda Guerrero, PCP - Assigned PCP 07/24/16 06/15/[address] [place] [address] [place] [phone] Noreen Hills PCP - Assigned PCP 06/16/18 08/13/18 SEAN Haley CRUDE OIL TREATER [address] [place] [address] [place] [phone] Noreen Hills PCP - General Nurse Practitioner 01/09/19 12/12/21 SEAN Haley CRUDE OIL TREATER [address] [place] [address] [place] [address] Noreen Hills Assigned PCP 06/16/18 SEAN Haley CRUDE OIL TREATER [address] [place] [address] [place] [phone] Kalyan Galvan Personal Advocate & 08/08/19 Liaison (PAL) Lashae Trevino Pharmacist Pharmacist 10/14/19 12/01/20 CLAUDIA Beck [address] [phone] Eduardo Sharma MD Assigned Sleep Provider 04/02/20 05/07/21 [address] [place] [id number] Rios Monteiro MD Assigned Musculoskeletal 04/02/20 08/24/20 [address] [facility] Provider [address] [place], [place] [address] Marcelo Artis Assigned Musculoskeletal 08/25/20 08/20/21 MIKAYLA Nuno Provider [address] [facility] [address] [place], [place] [id number] Rodrigo Man Assigned Surgical 08/25/2011/27 MIKAYLA Lacy Provider [address] [place], [place] [address] documented as of this encounter
--- OUTSIDE RECORDS SUMMARY | 2022-02-02 09:16 | XMS_ITS | Encounter Summary ---
:1965 Author Organization [place] Address [address] [place] [address] Care Team Providers Name Role Phone Vanda Borja MD Primary Care Provider Reason for Visit Reason Comments Physical Encounter Details Date Type Department Care Team Description 05/03/2016 Office Visit [facility] Vanda Borja for routine adult health examination with abnormal findings (Primary Dx); Pino Toribio MD Postmenopausal bleeding; [address] [employer] [address] [facility] Moderate episode of recurren t major depressive disorder (H); [address] DR Type 2 diabetes mellitus without complic ation, without long-term current use of insulin (H); [id number] [place] [address] Fibromyalgia; [phone] Hyperlipidemia LDL goal <100; (Work) Gastroesophageal reflux [...] How often do you attend yazidi or confucianist Patient refused 08/08/2019 services? Do [...] Comments Blood Pressure 122/78 05/03/2016 11:19 AM ANGLEDOZER OPERATOR Pulse 72 05/03/2016 11:19 AM ANGLEDOZER OPERATOR Temperature 36.4 ??C (97.6 ??F) 05/03/2016 11:19 AM ANGLEDOZER OPERATOR Respiratory Rate - - Oxygen Saturation - - Inhaled Oxygen Concentration - - Weight 85.3 kg (188 lb) 05/03/2016 11:19 AM ANGLEDOZER OPERATOR Height 157.5 cm (5' 2) 05/03/2016 11:19 AM ANGLEDOZER OPERATOR Body Mass Index 34.39 05/03/2016 11:19 AM ANGLEDOZER OPERATOR documented in this encounter Patient Instructions Patient InstructionsJodeetoanRejiLori Thomas - 05/03/2016 10:43 AM ANGLEDOZER OPERATOR [facility] Radiology: [phone] - call to set up pelvic ultrasound, then make appointment with MANAGER OF PHOTOGRAPHY here after that - Dr Nelson or [...] doctor every 1 to 2 years. ??? EDOZER OPERATOR documented in this encounter Progress Notes [...] recommended All Histories reviewed and updated in [facility]. ROS: 10 point ROS neg other than the symptoms noted above in the HPI. Problem list, Medication list, Allergies, and Medical/Social/Surgical histories reviewed in [facility] andupdated as appropriate. OBJECTIVE: BP 122/78 [...] have US and then follow up with Behavior Analyst 3. Moderate episode of recurrent major depressive [...] in addition to RHM. Vanda Borja MD [facility] [place] EDOZER OPERATOR documented in this encounter Nursing Notes [...] kg). BP completed using cuff size: regular EDOZER OPERATOR documented in this encounter Plan of Treatment Not on filedocumented as of this encounter Procedures Procedure Name Priority Date/Time Associated Diagnosis Comme nts HPV HIGH RISK TYPES Routine 05/03/2016 12:17 PM Cervical cance r Results for this DNA CERVICAL ANGLEDOZER OPERATOR screening procedure are i n the results section. PAP IMAGED THIN Routine 05/03/2016 12:00 AM Cervical cancer Re sults for this LAYER SCREEN ANGLEDOZER OPERATOR screening procedure are i n the results section. documented in this encounter Results US Pelvic Complete with Transvaginal (05/05/2016 2:41 PM ANGLEDOZER OPERATOR) Anatomical Region Laterality Modality Abdomen/Pelvis Ultrasound Specimen (Source) Anatomical Location Collection Method / Collectio n Time Received Time / Laterality Volume Impressions 05/05/2016 3:32 PM ANGLEDOZER OPERATOR IMPRESSION: 3.2 cm intramural fibroid. No endometrial thickening. Minimal free pelvic fluid is noted. Ovar ies are unremarkable and appear atrophic. BRIDGETTE LOZA MD Narrative 05/05/2016 3:32 PM ANGLEDOZER OPERATOR US PELVIC COMPLETE WITH TRANSVAGINAL 05/05/2016 [...] Risk Types DNA Cervical (05/03/2016 12:17 PM ANGLEDOZER OPERATOR) Component Value Ref Test Analysis Performed At [facility] Range Method Time Signature HPV 16 DNA Negative NEG [facility] HPV 18 DNA Negative NEG [facility] Other HR HPV Negative NEG [facility] Final This patient's sample is negative for HPV DNA. [facility] Diagnosis (Note) OF [place] METHODOLOGY: ??The Alaina kandy 4800 system uses [...] and its performance characteristics determined by the [facility] [place] [facility]. It has not been cleared or approved by the FDA. The laboratory is regulated under CLIA as qualified to perform high-complexity testing. This test is used for clinical purp oses. It should not be regarded as investigational or for research. Specimen Cervical Cells [facility] Description C16 [address] OF [facility] Specimen Anatomical Collection Method Collection Time Receive d Time (Source) Location / / Volume Laterality Cervical Cells 05/03/2016 12:17 6 PM ANGLEDOZER OPERATOR 12:20 PM ANGLEDOZER OPERATOR Vanda Borja MD LAB - BLOOD ORDERABLES Performing Organization Address City/State/ZIP Code Phon e Number [facility] [address] Pap imaged thin layer screen with HPV - recommended age 30 - 65 years (select HPV order below) (05/03/2016 12:00 AM ANGLEDOZER OPERATOR) Component Value Ref Test Analysis Performed At [facility] Range Method Time Signature PAP NIL COPATH Copath Report COPATH Patient Name: MEGAN CHOI MR#: [id number] Specimen #: [id number] Collected: 05/03/2016 Received: 05/05/2016 Reported: 05/09/2016 08:26 [...] TARIQ Wick (ASCP) Processed and screened at [facility] CLINICAL HISTORY: LMP: 10/30/11 Post Menopausal, Previous normal pap Date of Last Pap: 10/06/14, Papanicolaou Test Limitations: ??Cervical cytology is a scre ening test with limited sensitivity; regular screening is critical for cancer prevention; Pap tests are primarily effective for the diagnosis/prevention of squamous cell carcinoma, not adenoca rcinomas or other cancers. TESTING LAB LOCATION: [address] ??[id number] COLLECTION SITE: Client: ??[facility] Location: EAFP (R) Specimen (Source) Anatomical Collection Method Collection Time Re ceived Time Location / / Volume Laterality Cytologic 05/03/2016 05/05/2016 10:2 2 material AM ANGLEDOZER OPERATOR (specimen) Vanda Borja MD LAB - [...] documented as of this encounter Care Teams Analysis Mgr Relationship Specialty Start Date End Date Vanda Borja MD PCP - General Internal Medicine 04/08/15 01/08/[address] [facility] [address] [place], [place] [address] documented as of this encounter
--- OUTSIDE RECORDS SUMMARY | 2022-02-02 09:16 | XMS_ITS | Encounter Summary ---
:1965 Author Organization [place] Address [address] [place] [address] Care Team Providers Name Role Phone Vanda Guerrero MD Primary Care Provider [phone] Reason for Visit (Routine) - Closed Specialty Diagnoses / Procedures Referred By Contact Refer red To Contact Radiology / Radiology. Diagnoses Epic Order, sb pt. Voicemail Reminder placed 05/03/16 [facility] [place] [address] [place] [address] [place] [address] Phone: Fax: Referral ID Status Reason Start Date Expiration Date Visits Requ ested Visits Authorized [id number] Closed 05/05/2016 05/05/2017 1 1 Encounter Details Date Type Department Care Team Description 05/05/2016 Hospital Encounter [facility] [place] Agatha Null B ilateral ankle [facility] DPM, joint pain [address] [place] [address] [place] [address] [facility] [address] [facility] [address] [place], [place] [id number] Social History Tobacco Use Types Packs/Day Years [...] How often do you attend catholic or mosque Patient refused 08/08/2019 services? Do [...] or female climacteric states fluticasone (FLONASE) 50 [place] 1-2 sprays 3 Bottle 3 05/0306/12/2017 MCG/ACT [...] PM Bilateral ankle Results for this CONTRAST DOUBLER OPERATOR joint pain procedure are i n the results section. documented in this encounter Results MR Ankle Right w/o Contrast (05/05/2016 1:06 PM DOUBLER OPERATOR) Anatomical Region Laterality Modality Right Ankle, SUBRAD MR MSK, UMP MR MSK M agnetic Resonance Specimen (Source) Anatomical Location Collection Method / Collectio n Time Received Time / Laterality Volume Impressions 05/05/2016 4:51 PM DOUBLER OPERATOR IMPRESSION: ?? 1. Type II accessory navicular [...] ROHAN PINK MD Narrative 05/05/2016 4:51 PM DOUBLER OPERATOR MR ANKLE RIGHT WITHOUT CONTRAST 05/05/2016 1:06 [...] documented as of this encounter Care Teams Conference Assistant Relationship Specialty Start Date End Date Vanda Guerrero MD PCP - General Internal Medicine 04/08/15 01/08/19 [address] [facility] [address] [place], [place] [address] documented as of this encounter
--- OUTSIDE RECORDS SUMMARY | 2022-02-02 09:16 | XMS_ITS | Encounter Summary ---
:1965 Author Organization [place] Address [address] [place] [address] Care Team Providers Name Role Phone Vanda Guerrero MD Primary Care Provider [phone] Encounter Details Date Type Department Care Team Description 10/03/2015 Orders Only [facility] Vanda Guerrero Abnormal finding on [place] Toribio MD thyroid function test [address] (Primary Dx) [place] [address] [facility] [phone] [place] [address] (Wo rk) Social History [...] often do you attend oriental orthodox or muslim Patient refused 08/08/2019 services? Do [...] athologist Signature TSH 3.93 0.40 - 4.00 [facility] mU/L [facility] Specimen Anatomical Collection Method Collection Time Receive d Time (Source) Location / / Volume Laterality Blood specimen 12/03/2015 8:50 AM 016 8:55 (specimen) CDT AM CDT Vanda Guerrero MD LAB - BLOOD ORDERABLES Performing Organization Address City/State/ZIP Code Phon e Number [facility] [address] [place] [address] documented in this encounter Visit Diagnoses Diagnosis Abnormal finding on thyroid function shirley t - Primary Nonspecific abnormal results of thyroid function study documented in this encounter Additional Health Concerns Assessment Noted Time PHQ-9 Depression Total Score: 13 07/09/2015 7:49 AM CS T documented as of this encounter Care Teams Autocad Detailer Relationship Specialty Start Date End Date Vanda Guerrero MD PCP - General Internal Medicine 04/08/15 01/08/19 [address] [facility] [place] [address] documented as of this encounter
--- OUTSIDE RECORDS SUMMARY | 2022-02-02 09:16 | XMS_ITS | Encounter Summary ---
:1965 Author Organization [place] Address [address] [place] [address] Care Team Providers Name Role Phone Vanda Guerrero MD Primary Care Provider [phone] Reason for Visit Reason Onset Date Comments Refill Request 02/20/2016 loratadine-pseudoePH EDrine (CLARITIN-D 24-HOUR) 10-240 MG per tablet Encounter Details Date Type Department Care Team Description 02/20/2016 Refill [facility] Eag an [place] Good Refill Request [address] J, EDUCATION MANAGER WEED THINNER (loratadine-pseudoePHEDr [place] [phone] 72[address] [facility] (CLARITIN-D 24-HOUR) [phone] 10-240 MG per tablet) DAVID [...] How often do you attend sikh or evangelical Patient refused 08/08/2019 services? Do [...] not on the [facility], [facility] or [facility] refill protocol or controlled substance Raven Emmanuel RN Telephone Encounter - Sukh Beltran - 02/20/2016 1:00 PM CDT loratadine-pseudoePHEDrine (CLARITIN-D 24-HOUR) 10-240 MG per tablet Last Written Prescription Date: 12-22-2014 Last Fill Quantity: 90, # refills: prn Last Office Visit with [facility], [facility] or Health prescribing provider: 12-22-2015 Next 5 appointments (look out 90 days) Mar 23, 2016 10:20 AM Office Visit with Vanda Guerrero MD [facility] [place] ([facility] [place]) [address] [place] [address] [place] [address] documented in this encounter Plan of Treatment Not on filedocumented as of this encounter Visit Diagnoses Diagnosis Seasonal allergic rhinitis - Primary Allergic rhinitis, cause unspecified documented in this encounter Additional Health Concerns Assessment Noted Time PHQ-9 Depression Total Score: 12/23/2015 7:15 AM CD T documented as of this encounter Care Teams Manager Private Relationship Specialty Start Date End Date Vanda Guerrero MD PCP - General Internal Medicine 04/08/15 01/08/[address] [place] [address] [place] [phone] documented as of this encounter
--- OUTSIDE RECORDS SUMMARY | 2022-02-02 09:16 | XMS_ITS | Encounter Summary ---
:1965 Author Organization [place] Address [address] [place] [address] Care Team Providers Name Role Phone Vanda Guerrero MD Primary Care Provider [phone] Encounter Details Date Type Department Care Team Description 04/04/[address] [facility] Agatha Null, Pain in both feet Clinic [place], [address] [facility] Podiatry/Foot and [place], [place] Ankle Surgery [phone] [facility] [phone] [facility] [address] [place] [address] Social History Tobacco Use Types [...] How often do you attend buddhism or mandaen Patient refused 08/08/2019 services? Do [...] as of this encounter Care Teams Inspector Eyeglass Relationship Specialty Start Date End Date Vanda Guerrero MD PCP - General Internal Medicine 04/08/15 01/08/[address] [facility] [place] [address] documented as of this encounter
--- OUTSIDE RECORDS SUMMARY | 2022-02-02 09:16 | XMS_ITS | Encounter Summary ---
:1965 Author Organization [place] Address [address] [place] [address] Care Team Providers Name Role Phone Vanda Guerrero MD Primary Care Provider [phone] Reason for Visit Reason Onset Date Comments Vaginal Problem 04/18/2016 spotting Encounter Details Date Type Department Care Team Description 04/18/2016 Telephone [facility] Vanda Lal Vaginal Problem 1440 [facility] MD Catarino (spotting) [place] [phone] 3085 [facility] [phone] [facility] [place] [address] (Wo rk) Social [...] How often do you attend sikhism or mandaeism Patient refused 08/08/2019 services? Do [...] Vanda Guerrero MD - 04/19/2016 8:40 AM PHARMACY BILLING ADJUDICATOR Patient has appt with me later this month - will discuss in more detail at that time. MACY BILLING ADJUDICATOR Telephone Encounter - Kallie Mishra RN - [...] Guerrero, would like to wait versus seeing FINANCIAL REPORTING DIRECTOR. Patient will call with any new or worsening symptoms. FYI sent to Dr. Guerrero per patient request. MACY BILLING ADJUDICATOR documented in this encounter Plan of Treatment Not on filedocumented as of this encounter Visit Diagnoses Not on filedocumented in this encounter Additional Health Concerns Assessment Noted Time PHQ-9 Depression Total Score: 10 12/23/2015 7:15 AM CD T documented as of this encounter Care Teams Irrigator Valve Pipe Relationship Specialty Start Date End Date Vanda Guerrero MD PCP - General Internal Medicine 04/08/15 01/08/19 3184 [facility] [place] [address] documented as of this encounter
--- OUTSIDE RECORDS SUMMARY | 2022-02-02 09:16 | XMS_ITS | Encounter Summary ---
:1965 Author Organization [facility] Address [address] [place] [address] Care Team Providers Name Role Phone Vanda Guerrero MD Primary Care Provider [phone] Reason for Visit Reason Onset Date Comments Refill Request 02/09/2016 SIMVASTATIN 20MG Refill Request 02/09/2016 CITALOPRAM 20MG Encounter Details Date Type Department Care Team Description 02/09/2016 Refill [facility] Vanda Lal, Refill Request 1440 Priscilla Bass MD (SIMVASTATIN 20MG); [place] [phone] 8142 [facility] Refill Request [phone] NASIR ANDRE (CITALOPRAM 20MG) [place] [address] [...] How often do you attend scientology or adventist Patient refused 08/08/2019 services? Do [...] 2:20 PM CDT Simvastatin Prescription approved per [facility] Refill Protocol. Celexa Medication is being filled for 1 time refill only due to: pt needs updated PHQ9-ok to wait until upcoming appt 03/23/16? Kassie Roberts, RN Telephone Encounter - Marisa Matthew - 02/10/2016 3:35 PM CDT CITALOPRAM 20MG Last Written Prescription Date: 11/09/2015 Last Fill Quantity: 90, # refills: 0 Last Office Visit with [facility] primary care provider: 12/22/2015 Next 5 appointments (look out 90 days) Mar 23, 2016 10:20 AM Office Visit with Vanda Guerrero MD [facility] ([facility] [address] [place] [phone] Last PHQ-9 score on record= PHQ-9 SCORE 12/22/2015 Total Score - Total Score MyChart - Total Score 10 Telephone Encounter - Marisa Matthew - 02/09/2016 7:45 AM CDT SIMVASTATIN 20MG Last Written Prescription Date: 11/09/2015 Last Fill Quantity: 90, # refills: 0 Last Office Visit with [facility], [facility] or [facility] prescribing provider: 12/22/2015 Next 5 appointments (look out 90 days) Mar 23, 2016 10:20 AM Office Visit with Vanda Guerrero MD [facility] ([facility]) [address] [place] [address] CHOL 152 12/03/2015 HDL 51 12/03/2015 [...] as of this encounter Care Teams Computer Science Intern Relationship Specialty Start Date End Date Vanda Guerrero MD PCP - General Internal Medicine 04/08/15 01/08/19 [address] [facility] [address] [place], [place] [address] documented as of this encounter
--- OUTSIDE RECORDS SUMMARY | 2022-02-02 09:16 | XMS_ITS | Encounter Summary ---
:1965 Author Organization [place] Address [address] [place] [address] Care Team Providers Name Role Phone Vanda Guerrero MD Primary Care Provider [phone] Encounter Details Date Type Department Care Team Description 10/03/2015 Orders Only [facility] Vanda Guerrero Abnormal finding on Pino Toribio MD thyroid function test [address] (Primary Dx) [place] [address] [facility] [phone] [place] [address] (Wo rk) Social History [...] How often do you attend cheondoism or congregational Patient refused 08/08/2019 services? Do you belong to any clubs or organizations such as 08/08/2019 cheondoism groups, unions, fraternal or athletic [...] Thyroid stimulating immunoglobulin (12/03/2015 8:50 AM CDT) [facility] Method Time Signature Thyroid Stim <1.0 [place] Immunog Reference range: <=1.3 [facility] Unit: TSI index PIN[place] (Note) Test Performed by: [address] [address] Information Coder: Huseyin Dash II, M.D., Ph.D. Specimen Anatomical Collection Method Collection Time Receive d Time (Source) Location / / Volume Laterality Blood specimen 12/03/2015 8:50 AM 016 8:55 (specimen) CDT AM CDT Vanda Guerrero MD LAB - BLOOD ORDERABLES Performing Organization Address City/State/ZIP Code Phon e Number [facility] PIN[place] [address] [facility] [place] [address] documented in this encounter Visit Diagnoses Diagnosis Abnormal finding on thyroid function shirley t - Primary Nonspecific abnormal results of thyroid function study documented in this encounter Additional Health Concerns Assessment Noted Time PHQ-9 Depression Total Score: 13 07/09/2015 7:49 AM CS T documented as of this encounter Care Teams Office Services Clerk Relationship Specialty Start Date End Date Vanda Guerrero MD PCP - General Internal Medicine 04/08/15 01/08/19 2310 [facility] [place] [address] documented as of this encounter
--- OUTSIDE RECORDS SUMMARY | 2022-02-02 09:16 | XMS_ITS | Encounter Summary ---
:1965 Author Organization [place] Address [address] [place] [address] Care Team Providers Name Role Phone Vanda Guerrero MD Primary Care Provider [phone] Reason for Visit Reason Onset Date Comments Panel Management 03/09/2016 Encounter Details Date Type Department Care Team Description 03/09/2016 Telephone [facility] Vanda Lal, Panel Management 1440 [facility] [place] [address] 5830 [facility] [phone] [facility] [place] [address] (Wo rk) Social History [...] How often do you attend holiness or denominational Patient refused 08/08/2019 services? Do you belong to any clubs or organizations such as Sarahi 08/08/2019 holiness groups, unions, fraternal or athletic [...] as of this encounter Care Teams Oil Well Services Dispatcher Relationship Specialty Start Date End Date Vanda Geurrero MD PCP - General Internal Medicine 04/08/15 01/08/19 [address] [facility] [address] [place], [place] [address] documented as of this encounter
--- OUTSIDE RECORDS SUMMARY | 2022-02-02 09:16 | XMS_ITS | Encounter Summary ---
:1965 Author Organization [facility] Address [address] [place] [address] Care Team Providers Name Role Phone Vanda Guerrero MD Primary Care Provider [phone] Reason for Visit Reason Onset Date Comments Refill Request 12/31/2015 tiZANidine (ZANAFLEX ) 4 MG tablet Encounter Details Date Type Department Care Team Description 12/31/2015 Refill [facility] Vanda Lal, Refill Request 1440 Priscilla Bass MD (tiZANidine (ZANAFLEX) [place] [phone] [place] [address] 4 MG tablet) [phone] [facility] [place] [phone] (Wo rk) Social History Tobacco Use Types [...] How often do you attend sabianism or spiritism Patient refused 08/08/2019 services? Do [...] Last Office Visit with [facility], [facility] or [facility] prescribing provider: 12/22/2015 Future Office visit: Next 5 appointments (look out 90 days) Mar 23, 2016 10:20 AM Office Visit with Vanda Guerrero MD [facility] [place] ([facility] [place]) [address] [place] [phone] Routing refill request to provider for review/approval [...] as of this encounter Care Teams Video Production Intern Relationship Specialty Start Date End Date Vanda Guerrero MD PCP - General Internal Medicine 04/08/15 01/08/19 9985 [facility] [place] [address] documented as of this encounter
--- OUTSIDE RECORDS SUMMARY | 2022-02-02 09:16 | XMS_ITS | Encounter Summary ---
:1965 Author Organization [facility] Address [address] [place] [address] Care Team Providers Name Role Phone Vanda Guerrero MD Primary Care Provider [phone] Reason for Visit Reason Onset Date Comments Refill Request 03/07/2016 METFORMIN 500MG Encounter Details Date Type Department Care Team Description 03/07/2016 Refill [facility] Vanda Lal, Refill Request 1440 [employer] Kali SALDANA (METFORMIN 500MG) [place] [phone] [facility] [phone] [facility] [place] [address] (Wo [...] How often do you attend mosque or rastafari Patient refused 08/08/2019 services? Do [...] AM Office Visit with Vanda Guerrero MD [facility] [address] [place] [address] BP Readings from Last 3 Encounters: [...] of this encounter Care Teams Director Of Hotel Operations Relationship Specialty Start Date End Date Vanda Guerrero MD PCP - General Internal Medicine 04/08/15 01/08/19 8697 [facility] [place] [address] documented as of this encounter
--- OUTSIDE RECORDS SUMMARY | 2022-02-02 09:16 | XMS_ITS | Encounter Summary ---
:1965 Author Organization [facility] Address [address] [place] [address] Care Team Providers Name Role Phone Vanda Guerrero MD Primary Care Provider Reason for Visit Reason Onset Date Comments Refill Request 12/06/2015 METFORMIN 500MG Encounter Details Date Type Department Care Team Description 12/06/2015 Refill [facility] Vanda Lal, Refill Request 1440 [facility] Kali SALDANA (METFORMIN 500MG) [place] [phone] 8539 [facility] [phone] [facility] [place] [address] (Wo rk) Social [...] How often do you attend hoahaoism or zoroastrianism Patient refused 08/08/2019 services? Do [...] 12/08/2015 4:31 PM CDT Prescription approved per [facility] Refill Protocol. Bambi Chaudhary RN Telephone Encounter - Marisa Matthew - 12/06/2015 8:14 AM CDT METFORMIN 500MG Last Written Prescription Date: 09/10/2015 Last Fill Quantity: 180, # refills: 0 Last Office Visit with G, P or [facility] prescribing provider: 11/01/2015 Next 5 appointments (look out 90 days) Dec 22, 2015 9:00 AM Office Visit with Vanda Guerrero MD [facility] [place] ([facility] [place]) 1440 [facility] [place] [address] MICROL 10 09/30/2015 [...] documented as of this encounter Care Teams Qc Chemist Relationship Specialty Start Date End Date Vanda Guerrero MD PCP - General Internal Medicine 04/08/15 01/08/[address] [place] [address] documented as of this encounter
--- OUTSIDE RECORDS SUMMARY | 2022-02-02 09:16 | XMS_ITS | Encounter Summary ---
:1965 Author Organization [facility] Address [address] [place] [address] Care Team Providers Name Role Phone Vanda Guerrero MD Primary Care Provider [phone] Encounter Details Date Type Department Care Team Description 12/03/2015 Orders Only [facility] Eag an Type 2 diabetes mellitus wit hout complication (H); [address] Abnormal finding on thyroid function test [place] [phone] Social History Tobacco Use Types Packs/Day Years [...] How often do you attend sabianism or confucianist Patient refused 08/08/2019 services? Do [...] stimulating immunoglobulin (12/03/2015 8:50 AM CDT) [facility] Method Time Signature Thyroid Stim <1.0 [place] Immunog Reference range: <=1.3 [facility]IN[facility] Unit: TSI index JACLYN (Note) Test Performed by: [place] [id number] Aircraft Refueler: Huseyin Dash II, M.D., Ph.D. Specimen Anatomical Collection Method Collection Time Receive d Time (Source) Location / / Volume Laterality Blood specimen 12/03/2015 8:50 AM 016 8:55 (specimen) CDT AM CDT Vanda Guerrero MD LAB - BLOOD ORDERABLES Performing Organization Address City/[facility]/ZIP Code Phon e Number [place] [address] [place] [address] TSH with free T4 reflex (12/03/2015 8:50 AM CDT) athologist Signature TSH 3.93 0.40 - 4.00 [facility] mU/L [facility] Specimen Anatomical Collection Method Collection Time Receive d Time (Source) Location / / Volume Laterality Blood specimen 12/03/2015 8:50 AM 016 8:55 (specimen) CDT AM CDT Vanda Guerrero MD LAB - BLOOD ORDERABLES Performing Organization Address City/[facility]/ZIP Code Phon e Number [facility] [address] [place] [address] Lipid panel reflex to direct LDL (12/03/2015 8:50 AM CDT) P athologist Signature Cholesterol 152 <200 mg/dL [facility] Triglycerides 109 <150 mg/dL [facility] S [facility] Comment: Fasting specimen HDL Cholesterol 51 >49 mg/dL [place] [facility] CS [facility] LDL Cholesterol Calculated 79 <100 mg/dL FA [facility] Comment: Desirable: <100 mg/dl Non HDL Cholesterol 101 <130 mg/dL [facility] Specimen Anatomical Collection Method Collection Time Receive d Time (Source) Location / / Volume Laterality Blood specimen 12/03/2015 8:50 AM 016 8:55 (specimen) CDT AM CDT Vanda Guerrero MD LAB - BLOOD ORDERABLES Performing Organization Address City/[facility]/ZIP Code Phon e Number [facility] [address] [place] [address] documented in this encounter Visit Diagnoses Diagnosis Type 2 diabetes mellitus without complic ation (H) Abnormal finding on thyroid function shirley t Nonspecific abnormal results of thyroid function study documented in this encounter Additional Health Concerns Assessment Noted Time PHQ-9 Depression Total Score: 13 07/09/2015 7:49 AM CS T documented as of this encounter Care Teams Derivatives Trader Relationship Specialty Start Date End Date Vanda Guerrero MD PCP - General Internal Medicine 04/08/15 01/08/19 4245 [facility] [place] [address] documented as of this encounter
--- OUTSIDE RECORDS SUMMARY | 2022-02-02 09:16 | XMS_ITS | Encounter Summary ---
:1965 Author Organization [place] Address [address] [place] [address] Care Team Providers Name Role Phone Vanda Guerrero MD Primary Care Provider [phone] Reason for Visit Reason Comments Musculoskeletal Problem both, left foot worse. Encounter Details Date Type Department Care Team Description 04/04/2016 Office Visit [facility] Agatha Null, Pain in both feet (Primary Dx); [facility] [place] DPM, Podiatry/Foot Peroneal tendinitis of left lower extremity; [address] [facility]le Surgery Peroneal tendinitis of right lower extre mity; [place] [address] Seda capellan vus, congenital; [address] [place] [address] Venous insufficiency of both lower extre mities; [phone] [place], [place] Fibromyalgia; [address] Type 2 diabetes mellitus without complic ation, without long-term current use of insulin (H); [phone] Non morbid obes ity, unspecified obesity type [...] How often do you attend restorationism or sikh Patient refused 08/08/2019 services? Do you belong to any clubs or organizations such as No 08/08/2019 restorationism groups, [employer] Loading[employer]ss, fraReedsy or athletic groups, or school groups? How [...] be found at these clinics: Sunday AM [facility] [address] [place] [address] Sunday PM Surgery Sunday All Day [facility] [address] [place], [place] [phone] Sunday [facility] [address] [place], [place] [phone] All Day surgery Sunday AM [facility] [address], [address] [place], [place] [address] Sunday PM [facility] [address] [facility], [address] [place] [address] TO SCHEDULE SURGERY, call Yecenia at [phone]. To Schedule appointments call: [phone] General (after hours): Patient [phone] DIABETES AND YOUR FEET What effect does [...] 2000 IU daily), Alpha-Lipoic Acid (600-1800mg daily), Oqzbqo-N-Yyfucigub (500-1000mg TID, L-methyl folate (1500mcgdaily) Metformin can [...] of you. Do 2 sets of 10. link trainer mechanic the same position as above. While keeping [...] ??? 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 [employer] Social History Main Topics ??? [...] Relation Age of Onset ??? Cardiovascular Mother [place] age 72 ??? Cardiovascular Father [place] early 40s, subsequent bipass ??? DIABETES Mother [...] obesity type PLAN: [facility]. Reviewed proper diabetic foot care. Reviewed [...] documented as of this encounter Care Teams Special Education Resource Teacher Relationship Specialty Start Date End Date Vanda Guerrero MD PCP - General Internal Medicine 04/08/15 01/08/19 0398 [facility] [place] [address] documented as of this encounter
--- OUTSIDE RECORDS SUMMARY | 2022-02-02 09:16 | XMS_ITS | Encounter Summary ---
:1965 Author Organization [facility] Address [address] [place] [address] Care Team Providers Name Role Phone Vanda Guerrero MD Primary Care Provider [phone] Encounter Details Date Type Department Care Team Description 01/07/2016 Orders Only [facility] Eag an Colon cancer screening [facility] [place] [address] Social History Tobacco Use Types [...] How often do you attend rastafari or scientologist Patient refused 08/08/2019 services? Do [...] logist Time Signature Occult Blood Negative NEG [facility] Specimen Anatomical Collection Method Collection Time Receive d Time (Source) Location / / Volume Laterality Stool specimen 01/07/2016 11:41 6 (specimen) AM CDT 11:42 AM CDT Vanda Guerrero MD LAB - STOOLS ORDERABLES Performing Organization Address City/State/ZIP Code Phon e Number [facility] [address] [place], [place] [phone] [place] [address] documented in this encounter Visit Diagnoses Diagnosis Colon cancer screening Special screening for malignant neoplasm s, colon documented in this encounter Additional Health Concerns Assessment Noted Time PHQ-9 Depression Total Score: 10 12/23/2015 7:15 AM CD T documented as of this encounter Care Teams Ergonomist Relationship Specialty Start Date End Date Vanda Guerrero MD PCP - General Internal Medicine 04/08/15 01/08/19 9166 [facility] [place] [address] documented as of this encounter
--- OUTSIDE RECORDS SUMMARY | 2022-02-02 09:16 | XMS_ITS | Encounter Summary ---
:1965 Author Organization [facility] Address [address] [place] [address] Care Team Providers Name Role Phone Vanda Guerrero MD Primary Care Provider [phone] Reason for Visit Reason Comments RECHECK Encounter Details Date Type Department Care Team Description 11/01/2015 Office Visit [facility] Vanda Guerrero History of lumbar fusion (Primary Dx); Pino Toribio MD History of fusion of cervical spine; [address] [facility] [facility] Recurrent major depressive d isorder, remission status unspecified (H); [place] [address] [facility] Chronic left-sided low back pain with le ft-sided sciatica; [phone] [place] [address] Thyroid function test abnormal [phone] (Wo rk) Social History Tobacco Use Types [...] How often do you attend pentecostalism or episcopalian Patient refused 08/08/2019 services? Do [...] a visit 6-8 weeks Vanda Guerrero MD [facility] documented in this encounter Nursing Notes Lori [...] documented as of this encounter Care Teams Furniture Salesperson Relationship Specialty Start Date End Date Vanda Guerrero MD PCP - General Internal Medicine 04/08/15 01/08/19 [address] [facility] [address] [place], [place] [address] documented as of this encounter
--- OUTSIDE RECORDS SUMMARY | 2022-02-02 09:16 | XMS_ITS | Encounter Summary ---
:1965 Author Organization [place] Address [address] [place] [address]. [place] [address] Care Team Providers Name Role Phone Vanda Guerrero MD Primary Care Provider [phone] Reason for Referral Consultation - Closed Specialty Diagnoses / Procedures Referred By Contact Refer red To Contact Diagnoses Left foot pain Vanda Guerrero MD [facility] [address] [facility] [address] [facility] [place] [address] [place] [address] Phone: Fax: Referral ID Status Reason Start Date Expiration Date Visits Requ ested Visits Authorized [id number] Closed 03/26/2016 03/26/2017 1 1 Reason for Visit Reason Comments Diabetes Lipids Recheck Medication Flu Shot Encounter Details Date Type Department Care Team Description 03/23/2016 Office Visit [facility] Vanda Guerrero Type 2 d iabetes mellitus without complication, without long-term current use of insulin (H) (Primary Dx); Pino Toribio MD Elevated alkaline phosphatase level; [address] [facility] Left foot pain; [address] [place] [address] Moderate episode of recurrent major depr essive disorder (H); [address] [place] [address] Gastroesophageal reflux disease without esophagitis; [phone] Fibromyalgia; (Work) Migraine without status migrainosus, not [...] How often do you attend spiritism or zoroastrian Patient refused 08/08/2019 services? Do [...] to be active. Recently started therapy at [facility] - going weekly for the next [...] SPLIT VIRUS IM > 3 YO (QUADRIVALENT) [78260] Vaccine Administration, Each Additional [23057] Vanda Guerrero MD [facility] Injectable Influenza Immunization Documentation 1. Is [...] the person to be vaccinated ever had Guillain-Kanab syndrome? No Form completed by patient documented [...] Signature GGT 33 0 - 40 U/L [facility] Specimen Anatomical Collection Method Collection Time Receive d Time (Source) Location / / Volume Laterality 03/23/2016 7:17 PM 6 7:19 CDT PM CDT Vanda Guerrero MD LAB - BLOOD ORDERABLES Performing Organization Address City/State/ZIP Code Phon e Number [facility] [address] [place] [address] (ABNORMAL) Hemoglobin A1c (03/23/2016 7:17 PM CDT) Patholo gist Method Time Signature Hemoglobin A1C 6.1 (H) 4.3 - 6.0 [facility] Specimen Anatomical Collection Method Collection Time Receive d Time (Source) Location / / Volume Laterality Blood specimen 03/23/2016 7:17 PM 016 7:19 (specimen) CDT PM CDT Vanda Guerrero MD LAB - BLOOD ORDERABLES Performing Organization Address City/State/ZIP Code Phon e Number [facility] [address] [place] [address] (ABNORMAL) Comprehensive metabolic panel (03/23/2016 7:17 PM CDT) [facility] Method Time Signature Sodium 142 133 - 144 [place] mmol/L [facility] Potassium 4.4 3.4 - 5.3 [place] mmol/L [facility] Chloride 110 (H) 94 - 109 [place] mmol/L [facility] Carbon Dioxide 29 20 - 32 [place] mmol/L [facility] Anion Gap 3 3 - 14 [place] mmol/L [facility] Glucose 106 (H) 70 - 99 [place] mg/dL [facility] Urea Nitrogen 17 7 - 30 [place] mg/dL [facility] Creatinine 0.77 0.52 - [place] 1.04 mg/dL [facility] GFR Estimate 78 >60 [place] mL/min/1.7 CLINICS m2 [facility] Comment: Non GFR Calc GFR Estimate If Black >90 >60 mL/min/1.7m2 [facility] GFR Calc [facility] Calcium 9.6 8.5 - 10.1 mg/dL [place] CLIN ICS [facility] Bilirubin Total 0.3 0.2 - 1.3 mg/dL [facility] Albumin 3.8 3.4 - 5.0 g/dL [facility] Protein Total 7.9 6.8 - 8.8 g/dL [place] [facility] INICS [facility] Alkaline Phosphatase 159 (H) 40 - 150 U/L [facility] ALT 30 0 - 50 U/L [facility] AST 16 0 - 45 U/L [facility] Specimen Anatomical Collection Method Collection Time Receive d Time (Source) Location / / Volume Laterality Blood specimen 03/23/2016 7:17 PM 016 7:19 (specimen) CDT PM CDT Vanda Guerrero MD LAB - BLOOD ORDERABLES Performing Organization Address City/State/ZIP Code Phon e Number [facility] [address] [place] [address] documented in this encounter Visit Diagnoses Diagnosis [...] Need for prophylactic vaccination with c ombined ohtknnlkqf-uxmlqku-najdnugud (DTP) vaccine Need for prophylactic vaccination and in oculation against influenza documented in this encounter Additional Health Concerns Assessment Noted Time PHQ-9 Depression Total Score: 10 12/23/2015 7:15 AM CD T documented as of this encounter Care Teams Agricultural Lender Relationship Specialty Start Date End Date Vanda Guerrero MD PCP - General Internal Medicine 04/08/15 01/08/19 [address] [facility] [place] [address] documented as of this encounter
--- OUTSIDE RECORDS SUMMARY | 2022-02-02 09:16 | XMS_ITS | Encounter Summary ---
:1965 Author Organization [place] Address [address] [place] [address] Care Team Providers Name Role Phone Vanda Guerrero MD Primary Care Provider [phone] Reason for Visit (Routine) - Closed Specialty Diagnoses / Procedures Referred By Contact Refer red To Contact Radiology / Radiology. Diagnoses [facility] Procedures [facility] [address], [address] [place] [address] Phone: Fax: Referral ID Status Reason Start Date Expiration Date Visits Requ ested Visits Authorized [id number] Closed 09/29/2015 09/28/2016 1 1 Encounter Details Date Type Department Care Team Description 09/30/2015 Hospital Encounter [facility] Vanda Guerrero reast pain, left [facility] MD [place] [address] [place] [address] [address], [address] [place] [address] [place], [place] [phone] [address] (Work) [phone] Social History Tobacco Use Types Packs/Day Years [...] How often do you attend buddhist or spiritism Patient refused 08/08/2019 services? Do you belong to any clubs or organizations such as No 08/08/2019 buddhist groups, [employer], fraOgone or athletic groups, or school groups? How [...] 2 Fibromyalgia times daily fluticasone (FLONASE) 50 [place] 1-2 sprays 3 Package 3 10/0605/03/2016 MCG/ACT [...] documented as of this encounter Care Teams [employer] Remover Relationship Specialty Start Date End Date Vanda Guerrero MD PCP - General Internal Medicine 04/08/15 01/08/19 [address] [facility] [place] [address] documented as of this encounter
--- OUTSIDE RECORDS SUMMARY | 2022-02-02 09:16 | XMS_ITS | Encounter Summary ---
:1965 Author Organization [place] Address [address] [place] [address] Care Team Providers Name Role Phone Vanda Guerrero MD Primary Care Provider [phone] Reason for Visit Reason Onset Date Comments Patient Request 10/27/2015 Should patient get l abs re-checked? Encounter Details Date Type Department Care Team Description 10/27/2015 Telephone [facility] Vanda Lal Patient [facility] [facility] MD [place] (Should patient get [place] [phone] 3305 [facility] labs re-checked?) [phone] [facility] [place] [address] (Wo rk) [...] How often do you attend advent or jain Patient refused 08/08/2019 services? Do [...] documented as of this encounter Care Teams Inspection Supervisor Relationship Specialty Start Date End Date Vanda Guerrero MD PCP - General Internal Medicine 04/08/15 01/08/19 [address] [facility] [place] [address] documented as of this encounter
--- OUTSIDE RECORDS SUMMARY | 2022-02-02 09:16 | XMS_ITS | Encounter Summary ---
:1965 Author Organization [place] Address [address] [place] [address] Care Team Providers Name Role Phone Vanda Guerrero MD Primary Care Provider [phone] Reason for Visit (Routine) - Closed Specialty Diagnoses / Procedures Referred By Contact Refer red To Contact Radiology / Diagnoses prev ridges Rh Ultrasound Breast Radiology. Procedures US BREAST LT [facility] [address], [address] [place] [address] Phone: Referral ID Status Reason Start Date Expiration Date Visits Requ ested Visits Authorized [id number] Closed 09/30/2015 09/29/2016 1 1 Encounter Details Date Type Department Care Team Description 09/30/2015 Hospital Encounter [facility] Vanda Guerrreo reast pain, left [facility] MD [place]ino [address] [place] [address] [place], [place] [phone] [address] (Work) [phone] Social History Tobacco Use Types Packs/Day Years [...] How often do you attend scientologist or restorationist Patient refused 08/08/2019 services? Do you belong to any clubs or organizations such as No 08/08/2019 scientologist groups, FX Aligneds, fraDahu or athletic groups, or school groups? How [...] 2 Fibromyalgia times daily fluticasone (FLONASE) 50 [place] 1-2 sprays 3 Package 3 10/0605/03/2016 MCG/ACT [...] as of this encounter Care Teams Fitness Plan Coordinator Relationship Specialty Start Date End Date Vanda Guerrero MD PCP - General Internal Medicine 04/08/15 01/08/19 [address] [facility] [place] [address] documented as of this encounter
--- OUTSIDE RECORDS SUMMARY | 2022-02-02 09:16 | XMS_ITS | Encounter Summary ---
:1965 Author Organization [place] Address [address] [place] [address] Care Team Providers Name Role Phone Vanda Guerrero MD Primary Care Provider [phone] Encounter Details Date Type Department Care Team Description 09/30/2015 Orders Only [facility] Eag an Type 2 diabetes mellitus wit hout complication (H); [address] Chronic fatigue [place] [address] Social [...] How often do you attend moravian or jewish Patient refused 08/08/2019 services? Do [...] Signature T4 Free 1.01 0.76 - 1.46 [facility] ng/dL [facility] Specimen Anatomical Collection Method Collection Time Receive d Time (Source) Location / / Volume Laterality 09/30/2015 9:22 AM 6 9:23 CDT AM CDT Vanda Guerrero MD LAB - BLOOD ORDERABLES Performing Organization Address City/State/ZIP Code Phon e Number [facility] [address] [place] [address] Microalbumin quantitative random urine (09/30/2015 9:22 AM CDT) athologist Signature Creatinine 174 mg/dL [place] Urine [facility] Albumin Urine 10 mg/L [place] mg/L [facility] Albumin Urine 5.67 0 - 25 [place] mg/g Cr mg/g Cr [facility] Specimen Anatomical Collection Method Collection Time Receive d Time (Source) Location / / Volume Laterality Urine specimen 09/30/2015 9:22 AM 016 9:23 (specimen) CDT AM CDT Vanda Guerrero MD LAB - URINE ORDERABLES Performing Organization Address City/State/ZIP Code Phon e Number [facility] [address] [place] [address] [facility] [address] [place] [address], U [phone] Vitamin D Deficiency (09/30/2015 9:22 AM CDT) athologist Signature Vitamin D 36 20 - 75 [facility] Deficiency ug/L [facility] Comment: Season, race, dietary intake, and treatm ent affect the concentration of 09-jofvfaz-Lzlsbfe D. Values may decrea se during winter [...] LAB - BLOOD ORDERABLES Performing Organization Address City/[facility]/ZIP [facility] Phon e Number [address] Vitamin B12 (09/30/2015 9:22 AM CDT) athologist Signature Vitamin B12 482 193 - 986 [facility] pg/mL [facility] Comment: Interp: [phone] = Normal Specimen Anatomical Collection Method Collection Time Receive d Time (Source) Location / / Volume Laterality Blood specimen 09/30/2015 9:22 AM 016 9:23 (specimen) CDT AM CDT Vanda Guerrero MD LAB - BLOOD ORDERABLES Performing Organization Address City/[facility]/ZIP Code Phon e Number [address] (ABNORMAL) TSH with free T4 reflex (09/30/2015 9:22 AM CDT) athologist Signature TSH 0.07 (L) 0.40 - [facility] 4.00 mU/L [facility] Specimen Anatomical Collection Method Collection Time Receive d Time (Source) Location / / Volume Laterality Blood specimen 09/30/2015 9:22 AM 016 9:23 (specimen) CDT AM CDT Vanda Guerrero MD LAB - BLOOD ORDERABLES Performing Organization Address City/[facility]/ZIP Code Phon e Number [facility] [address] [place] [address] (ABNORMAL) Comprehensive metabolic panel (09/30/2015 9:22 AM CDT) Patholo gist Method Time Signature Sodium 145 (H) 133 - 144 [place] mmol/L [facility] Potassium 4.0 3.4 - 5.3 [place] mmol/L [facility] Chloride 110 (H) 94 - 109 [place] mmol/L [facility] Carbon Dioxide 25 20 - 32 [place] mmol/L [facility] Anion Gap 10 3 - 14 [place] mmol/L [facility] Glucose 104 (H) 70 - 99 [place] mg/dL [facility] Urea Nitrogen 10 7 - 30 [place] mg/dL [facility] Creatinine 0.67 0.52 - [place] 1.04 [facility] mg/dL [facility] GFR Estimate >90 >60 [place] Non GFR Calc mL/min/1. CLINICS 7m2 [facility] GFR Estimate If >90 >60 [place] Black GFR Calc mL/min/1. CLIN ICS 7m2 [facility] Calcium 9.7 8.5 - [facility].1 [facility]ICS mg/dL [facility] Bilirubin Total 0.4 0.2 - 1.3 [place] mg/dL [facility] Albumin 3.6 3.4 - 5.0 [place] g/dL [facility] Protein Total 8.2 6.8 - 8.8 [place] g/dL [facility] Alkaline 148 40 - 150 [place] Phosphatase U/L [facility] ALT 47 0 - 50 [place] U/L [facility] AST 19 0 - 45 [place] U/L [facility] Specimen Anatomical Collection Method Collection Time Receive d Time (Source) Location / / Volume Laterality Blood specimen 09/30/2015 9:22 AM 016 9:23 (specimen) CDT AM CDT Vanda Guerrero MD LAB - BLOOD ORDERABLES Performing Organization Address City/State/ZIP Code Phon e Number [facility] [address] [place] [address] (ABNORMAL) Hemoglobin A1c (09/30/2015 9:22 AM CDT) P athologist Signature Hemoglobin A1C 6.2 (H) 4.3 - 6.0 [facility] [place] Specimen Anatomical Collection Method Collection Time Receive d Time (Source) Location / / Volume Laterality Blood specimen 09/30/2015 9:22 AM 016 9:23 (specimen) CDT AM CDT Vanda Guerrero MD LAB - BLOOD ORDERABLES Performing Organization Address City/State/ZIP Code Phon e Number [facility] JACLYN [address] [facility] [place] [address] documented in this encounter Visit Diagnoses Diagnosis Type 2 diabetes mellitus without complic ation (H) Chronic fatigue Other malaise and fatigue documented in this encounter Additional Health Concerns Assessment Noted Time PHQ-9 Depression Total Score: 13 07/09/2015 7:49 AM CS T documented as of this encounter Care Teams Roster Clerk Relationship Specialty Start Date End Date Vanda Guerrero MD PCP - General Internal Medicine 04/08/15 01/08/19 [address] [facility] [place] [address] documented as of this encounter
--- OUTSIDE RECORDS SUMMARY | 2022-02-02 09:17 | XMS_ITS | Encounter Summary ---
:1965 Author Organization [place] Address [address] [place] [address] Care Team Providers Name Role Phone Vanda Guerrero MD Primary Care Provider [phone] Reason for Visit Reason Comments Cough Otalgia Encounter Details Date Type Department Care Team Description 07/08/2015 Office Visit [facility] Serum, [place] Acute bro nchitis, unspecified organism (Primary Dx); Pino Panda MD Middle ear effusion, bilateral [address] [email or web address] [address] [place] [phone] [address] [place], [place] [address] Social History Tobacco Use [...] How often do you attend voodoo or church Patient refused 08/08/2019 services? Do [...] Comments Blood Pressure 100/68 07/08/2015 11:18 AM ASSOCIATE PROFESSOR OF GEOGRAPHY Pulse 96 07/08/2015 11:18 AM ASSOCIATE PROFESSOR OF GEOGRAPHY Temperature 37.2 ??C (98.9 ??F) 07/08/2015 11:18 AM ASSOCIATE PROFESSOR OF GEOGRAPHY Respiratory Rate - - Oxygen Saturation 98% 07/08/2015 11:18 AM ASSOCIATE PROFESSOR OF GEOGRAPHY Inhaled Oxygen Concentration - - Weight 80.1 kg (176 lb 8 oz) 07/08/2015 11:18 AM ASSOCIATE PROFESSOR OF GEOGRAPHY Height 158.8 cm (5' 2.5) 07/08/2015 11:18 AM ASSOCIATE PROFESSOR OF GEOGRAPHY Body Mass Index 31.77 07/08/2015 11:18 AM ASSOCIATE PROFESSOR OF GEOGRAPHY documented in this encounter Patient Instructions Patient InstructionsSerum, [place]ona Panda MD - 07/08/2015 12:01 PM ASSOCIATE PROFESSOR OF GEOGRAPHY 1. Augmentin 1 pill twice a day for 10 days 2. Continue allergy medications 3. Continue ibuprofen as needed for pain/fevers 4. Follow-up if not improving or getting worse CIATE PROFESSOR OF GEOGRAPHY documented in this encounter Progress Notes Keyona [...] list, Allergies, and Medical/Social/Surgical histories reviewed in [facility] andupdated as appropriate. OBJECTIVE: BP 100/68 [...] as needed See Patient Instructions Keyona Sexton [facility] CIATE PROFESSOR OF GEOGRAPHY documented in this encounter Nursing Notes Adele [...] completed using cuff size: yennifer OSMAN SMA CIATE PROFESSOR OF GEOGRAPHY documented in this encounter Plan of Treatment Not on filedocumented as of this encounter Visit Diagnoses Diagnosis Acute bronchitis, unspecified organism - Primary Middle ear effusion, bilateral documented in this encounter Additional Health Concerns Assessment Noted Time PHQ-9 Depression Total Score: 13 07/09/2015 7:49 AM CS T documented as of this encounter Care Teams Chips Screen Tender Relationship Specialty Start Date End Date Vanda Guerrero MD PCP - General Internal Medicine 04/08/15 01/08/19 [address] [facility] [place] [address] documented as of this encounter
--- OUTSIDE RECORDS SUMMARY | 2022-02-02 09:17 | XMS_ITS | Encounter Summary ---
:1965 Author Organization [facility] Address [address] [place] [address] Care Team Providers Name Role Phone Vanda Guerrero MD Primary Care Provider [phone] Reason for Visit Reason Comments RECHECK Follow up neurologist Flu Shot Encounter Details Date Type Department Care Team Description 04/08/2015 Office Visit [facility] Vanda Guerrero bola (Primary Dx); Pino Toribio MD Type 2 diabetes mellitus without complic ation (H); [address] Hyperlipidemia LDL goal <100 ; [place] [address] [facility] Hypertension goal BP (blood pressure) < 130/80; [phone] [place] [address] History of lumbar fusion; [phone] History of fusi on of cervical spine; [...] How often do you attend yazdanism or hinduism Patient refused 08/08/2019 services? Do [...] weeks - either in person or via [employer] to update me on how you are doing Schedule your mammogram - either with our mobile unit ([phone]) or at the hospital ([phone]) documented in this encounter Progress Notes Lori [...] the person to be vaccinated ever had Guillain-Gainesville syndrome? No Form completed by patient Vanda [...] in [facility] andupdated as appropriate. ROS: Constitutional, msk, neuro, [...] can't afford to repeat. Planning on other nursing home pain strategies. Continue cymbalta for now, add [...] SPLIT VIRUS IM > 3 YO (QUADRIVALENT) [08068] Vaccine Administration, Initial [74864] 10. Migraine without status migrainosus, not intractable, [...] weeks - either in person or via [employer] Networkshart to update me on how you are doing Schedule your mammogram - either with our mobile unit ([phone]) or at the hospital ([phone]) Vanda Guerrero MD [facility]] documented in this encounter Nursing Notes Lori [...] MA Screening Digital Bilateral (04/16/2015 11:13 AM COMMAND POST SUPERINTENDENT) Anatomical Region Laterality Modality Breast Bilateral Mammography Specimen (Source) Anatomical Location Collection Method / Collectio n Time Received Time / Laterality Volume Impressions 04/16/2015 12:41 PM COMMAND POST SUPERINTENDENT IMPRESSION: BI-RADS CATEGORY: 1 - ??NEGATIVE. RECOMMENDED FOLLOW-UP: Annual Mammograph y Exam results letter mailed to patient. BRIGIDO RDZ MD Narrative 04/16/2015 12:41 PM COMMAND POST SUPERINTENDENT SCREENING MAMMOGRAM, BILATERAL, DIGITAL w/CAD - 04/16/2015 [...] Signature Hemoglobin A1C 6.0 4.3 - 6.0 [facility] Specimen Anatomical Collection Method Collection Time Receive d Time (Source) Location / / Volume Laterality Blood specimen 04/08/2015 11:58 5 (specimen) AM CDT 11:59 AM CDT Vanda Guerrero MD LAB - BLOOD ORDERABLES Performing Organization Address City/[facility] [address]/ZIP Code Phon e Number [facility] [address] [place] [address] Ferritin (04/08/2015 11:58 AM CDT) athologist Signature Ferritin 31 8 - 252 [facility] ng/mL [facility] Specimen Anatomical Collection Method Collection Time Receive d Time (Source) Location / / Volume Laterality Blood specimen 04/08/2015 11:58 5 (specimen) AM CDT 11:59 AM CDT Vanda Guerrero MD LAB - BLOOD ORDERABLES Performing Organization Address [facility] [address]/ZIP Code Phon e Number [facility] [address] [place] [address] TSH with free T4 reflex (04/08/2015 11:58 AM CDT) athologist Signature TSH 1.84 0.40 - 4.00 [facility] mU/L [facility] Specimen Anatomical Collection Method Collection Time Receive d Time (Source) Location / / Volume Laterality Blood specimen 04/08/2015 11:58 5 (specimen) AM CDT 11:59 AM CDT Vanda Guerrero MD LAB - BLOOD ORDERABLES Performing Organization Address City/[facility] [address] [facility]/ZIP [facility] Phon e Number [facility] [address] [place] [address] CBC with platelets (04/08/2015 11:58 AM CDT) athologist Signature WBC 5.4 4.0 - 11.0 [place] 10e9/L [facility] RBC Count 4.09 3.8 - 5.2 [place] 10e12/L [facility] Hemoglobin 13.1 11.7 - [place] 15.7 g/dL [facility] Hematocrit 39.9 35.0 - [place] 47.0 % [facility] MCV 98 78 - 100 [place] fl [facility] MCH 32.0 26.5 - [place] 33.0 pg [facility] MCHC 32.8 31.5 - [place] 36.5 g/dL [facility] RDW 12.7 10.0 - [place] 15.0 % [facility] Platelet Count 260 150 - 450 [place] 10e9/L [facility] Specimen Anatomical Collection Method Collection Time Receive d Time (Source) Location / / Volume Laterality Blood specimen 04/08/2015 11:58 5 (specimen) AM CDT 11:59 AM CDT Vanda Guerrero MD LAB - BLOOD ORDERABLES Performing Organization Address City/State/ZIP Code Phon e Number [facility] [address] [place] [address] Vitamin D Deficiency (04/08/2015 11:58 AM CDT) athologist Signature Vitamin D 32 20 - 75 [facility] Deficiency ug/L [facility] Comment: Season, race, dietary intake, and treatm ent affect the concentration of 33-xbhwdpa-Qdoksbl D. Values may decrea se during winter [...] Organization Address City/State/ZIP Code Phon e Number [address] (ABNORMAL) Vitamin B12 (04/08/2015 11:58 AM CDT) athologist Signature Vitamin B12 1,224 (H) 193 - 986 [facility] pg/mL [facility] Comment: Interp: [phone] = Normal Specimen Anatomical Collection Method Collection Time Receive d Time (Source) Location / / Volume Laterality Blood specimen 04/08/2015 11:58 5 (specimen) AM CDT 11:59 AM CDT Vanda Guerrero MD LAB - BLOOD ORDERABLES Performing Organization Address City/[facility]/ZIP Code Phon e Number [id number] [place] [address] (ABNORMAL) Vitamin B6 (04/08/2015 11:58 AM CDT) athologist Signature Vitamin B6 330.6 (H) [facility] Comment: Reference range: 20.0 to 125.0 Unit: nmol/L (Note) INTERPRETIVE INFORMATION: Vitamin B6 (Py ridoxal 5-Phosphate) Pyridoxal 5'-phosphate measured in a spe cimen collected following an 8-hour or overnight fast ac curately indicates vitamin B6 nutritional status. Non-fasti ng specimen concentration reflects recent vitamin in take. Test developed and characteristics deter mined by [employer]. See Compliance Statement B : [employer]/CS Performed by [employer], [address] [place] [address] www.[employer], Jae Botello MD, L ab. Director Specimen Anatomical Collection Method Collection Time Receive d Time (Source) Location / / Volume Laterality Blood specimen 04/08/2015 11:58 5 (specimen) AM CDT 11:59 AM CDT Vanda Guerrero MD LAB - BLOOD ORDERABLES Performing Organization Address City/[facility]/ZIP Code Phon e Number [address] [address] documented in this encounter Visit Diagnoses Diagnosis [...] mammogram documented in this encounter Care Teams Neurosurgery Spine Physician Relationship Specialty Start Date End Date Vanda Guerrero MD PCP - General Internal Medicine 04/08/15 01/08/[address] [place], [place] [address] documented as of this encounter
--- OUTSIDE RECORDS SUMMARY | 2022-02-02 09:17 | XMS_ITS | Encounter Summary ---
:1965 Author Organization [facility] Address [address] [place] [address] Care Team Providers Name Role Phone Vanda Guerrero MD Primary Care Provider [phone] Reason for Visit Reason Onset Date Comments Refill Request 06/08/2015 METFORMIN HCL 500MG Encounter Details Date Type Department Care Team Description 06/08/2015 Refill [facility] Vanda Lal, Refill Request 1440 Priscilla Bass MD (METFORMIN HCL 500MG) [place] [address] [address] [facility] [phone] [facility] [place] [address] [...] How often do you attend bahai or catholic Patient refused 08/08/2019 services? Do [...] 06/10/2015 11:53 AM CST Prescription approved per [facility] Refill Protocol. Abigail Burciaga RN PARTS PROFESSIONAL Telephone Encounter - Eri Middleton - 06/08/2015 4:46 PM CST METFORMIN HCL 500MG Last Written Prescription Date: 10/06/2014 Last Fill Quantity: 180, # refills: 1 Last Office Visit with [facility] primary care provider: 04/08/2015 MICROL <5 08/10/2014 [...] 10/27/2013 3.8 3.4 - 5.3 mmol/L Final PARTS PROFESSIONAL documented in this encounter Plan of Treatment Not on filedocumented as of this encounter Visit Diagnoses Diagnosis Type 2 diabetes mellitus without complic ation - Primary documented in this encounter Care Teams Colorer Hides And Skins Relationship Specialty Start Date End Date Vanda Guerrero MD PCP - General Internal Medicine 04/08/15 01/08/19 [address] [facility] [place] [address] documented as of this encounter
--- OUTSIDE RECORDS SUMMARY | 2022-02-02 09:17 | XMS_ITS | Encounter Summary ---
:1965 Author Organization [facility] Address [address] [facility] [place] [address] Care Team Providers Name Role Phone Selma Good APRN MEDICAL DELIVERY TECHNICIAN Primary Care Provider [phone] Reason for Visit Reason Onset Date Comments Patient/info Update 02/02/2015 Post FABIAN Encounter Details Date Type Department Care Team Description 02/02/2015 Telephone [facility] Pain Teagan Solares, Patient/info Update Management Center DO (Post FABIAN) [address] [place] [address] PAIN [place] [address] [place] [place], [place] [address] [facility] [place] [place] [place] [address] [place] [address] [phone] Social History Tobacco Use Types Packs/Day Years [...] How often do you attend orthodox or voodoo Patient refused 08/08/2019 services? Do [...] pt should call the nurse line at [phone]. Lashae Stack(R) documented in this encounter Plan of Treatment Not on filedocumented as of this encounter Visit Diagnoses Not on filedocumented in this encounter Care Teams Therapeutic Activities Services Worker Relationship Specialty Start Date End Date Selma Good APRN MEDICAL DELIVERY TECHNICIAN PCP - General 04/09/08 04/07/15 [address] [facility] [place] [address] documented as of this encounter
--- OUTSIDE RECORDS SUMMARY | 2022-02-02 09:17 | XMS_ITS | Encounter Summary ---
:1965 Author Organization [facility] Address [address] [place] [address] Care Team Providers Name Role Phone Selma Good APRN HEAD REFRIGERATING ENGINEER Primary Care Provider [phone] Encounter Details Date Type Department Care Team Description 01/26/2015 Radiant Appointment [facility] Teagan Solares DDD (degenerative Clinic [facility] disc disease), Pain Management [facility] cervical [address] [place] [address] [address] [place] [address] [place], [place] [phone] [address] (Work) [phone] Social History Tobacco Use Types Packs/Day Years [...] How often do you attend orthodox or islam Patient refused 08/08/2019 services? Do [...] be read by a radiologist or a [facility] non-radiologis t provider. Procedure Note Lashae Alexis - 01/26/2015Formatt ing of this note might be different from the original. This exam was marked as non-reportable b ecause it will not be read by a radiologist or a [facility] non-radiologist provider. Teagan Solares DO [facility] DIAGNOSTIC [...] dose documented in this encounter Care Teams Battery Container Inspector Relationship Specialty Start Date End Date Danilo-Selma Mccoy, [place]AP[place]IN MACHINE OPERATOR HEAD REFRIGERATING ENGINEER PCP - General 04/09/08 04/07/15 [address] [facility] [address] [place], [place] [address] documented as of this encounter
--- OUTSIDE RECORDS SUMMARY | 2022-02-02 09:17 | XMS_ITS | Encounter Summary ---
:1965 Author Organization [facility] Address [address] [place] [address] Care Team Providers Name Role Phone Selma Good APRN CHILD CARE LEADER Primary Care Provider [phone] Reason for Visit Reason Comments Pain FABIAN for Pain Management Encounter Details Date Type Department Care Team Description 01/26/[address] [facility] SolaresTeagan german Cervical s pondylosis without myelopathy (Primary Dx); Injection Office Pain Management DO Noreen Cervical radiculopathy Visit [address] [facility] [address] [place] [address] [place], [place] [phone] [address] (Work) [phone] Social History Tobacco Use Types Packs/Day Years [...] How often do you attend zoroastrian or buddhism Patient refused 08/08/2019 services? Do [...] Lew CMA - 01/26/2015 9:11 AM CDT [facility] Procedure Discharge Instruction Nurse line #:[phone] Appointment line #; [phone] Teagan Solares You had [...] medication, which will hopefully give you the technician terminal and repeater relief, may take up to 14 days [...] center nursing line during work hours at [phone] or inside sales consultant physician after hours at [phone] (choose option #1): o Fever over 100F [...] Solares DO - 01/26/2015 8:44 AM CDT [facility] - Procedure Note Date of Visit: 01/26/15 Procedure performed: T1-T2 interlaminar epidural steroid injection with fluoroscopic guidance Diagnosis: Cervical spondylosis; Cervical radiculitis/radiculopathy Tank Inspector: Teagan Solares DO Anesthesia: none Indications: Megan [...] the patient was advised to contact the [facility] for any of the [...] weeks for post-procedure evaluation. Teagan Solares DO [facility] documented in this encounter [...] active infection? NO Does patient have a six horse hitch driver? 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 NO [...] using cuff size: large Cathie Lew CMA ([facility]) Pain Management Center documented in this encounter Plan of Treatment Not on filedocumented as of this encounter Visit Diagnoses Diagnosis Cervical spondylosis without myelopathy - Primary Cervical radiculopathy Brachial neuritis or radiculitis nos documented in this encounter Care Teams Dental Technician Relationship Specialty Start Date End Date Selma Good APRN CHILD CARE LEADER PCP - General 04/09/08 04/07/15 [address] [facility] [address] [place], [place] [address] documented as of this encounter
--- OUTSIDE RECORDS SUMMARY | 2022-02-02 09:17 | XMS_ITS | Encounter Summary ---
:1965 Author Organization [facility] Address [address] [place] [address] Care Team Providers Name Role Phone Vanda Guerrero MD Primary Care Provider [phone] Reason for Visit (Routine) - Closed Specialty Diagnoses / Procedures Referred By Contact Refer red To Contact Radiology / Radiology. Diagnoses prev [facility] Procedures MA SCREENING DIGITAL BILATERAL [address], [address] [place] [address] Phone: Fax: Referral ID Status Reason Start Date Expiration Date Visits Requ ested Visits Authorized [id number] Closed 04/15/2015 04/14/2016 1 1 Encounter Details Date Type Department Care Team Description 04/16/2015 Hospital Encounter [facility] Vanda Guerrero for screening Coquilletoan Toribio MD mammogram Center [address] [place] [place] [address] [address], [address] [place] [address] [place], [place] [phone] [address] (Work) [phone] Social History Tobacco Use Types Packs/Day Years [...] How often do you attend uatsdin or spiritism Patient refused 08/08/2019 services? Do you belong to any clubs or organizations such as No 08/08/2019 uatsdin groups, PresenterNets, fraOony or athletic groups, or school groups? How [...] 2 Fibromyalgia times daily fluticasone (FLONASE) 50 [place] 1-2 sprays 3 Package 3 10/0605/03/2016 MCG/ACT [...] screening R esults for this DIGITAL BILATERAL GEOTHERMAL INSTALLER mammogram procedure are in the results section. documented in this encounter Results MA Screening Digital Bilateral (04/16/2015 11:13 AM GEOTHERMAL INSTALLER) Anatomical Region Laterality Modality Breast Bilateral Mammography Specimen (Source) Anatomical Location Collection Method / Collectio n Time Received Time / Laterality Volume Impressions 04/16/2015 12:41 PM GEOTHERMAL INSTALLER IMPRESSION: BI-RADS CATEGORY: 1 - ??NEGATIVE. RECOMMENDED FOLLOW-UP: Annual Mammograph y Exam results letter mailed to patient. BRIGIDO RDZ MD Narrative 04/16/2015 12:41 PM GEOTHERMAL INSTALLER SCREENING MAMMOGRAM, BILATERAL, DIGITAL w/CAD - 04/16/2015 [...] mammogram documented in this encounter Care Teams Green Prize Packer Relationship Specialty Start Date End Date Vanda Guerrero MD PCP - General Internal Medicine 04/08/15 01/08/19 [address] [facility] [place] [address] documented as of this encounter
--- OUTSIDE RECORDS SUMMARY | 2022-02-02 09:17 | XMS_ITS | Encounter Summary ---
:1965 Author Organization [facility] Address [address] [place] [address] Care Team Providers Name Role Phone Vanda Guerrero MD Primary Care Provider Reason for Visit Reason Onset Date Comments Refill Request 08/20/2015 tiZANidine (ZANAFLEX ) 4 MG tablet Encounter Details Date Type Department Care Team Description 08/20/2015 Refill [facility] Vanda Lal, Refill Request 1440 Priscilla Bass MD (tiZANidine (ZANAFLEX) [place] [address] [place] [address] 4 MG tablet) [phone] [facility] [place] [id number] (Wo rk) Social History Tobacco Use Types [...] How often do you attend episcopalian or taoism Patient refused 08/08/2019 services? Do you belong to any clubs or organizations such as No 08/08/2019 episcopalian groups, unions, fraBplats or athletic groups, or school groups? How [...] # refills: 5 Last Office Visit with [facility] or Health prescribing provider: 04/08/15 Future Office visit: Routing refill request to provider for review/approval because: Drug not on the [facility] or Health refill protocol or controlled substance STERED DIETITIAN documented in this encounter Plan of Treatment Not on filedocumented as of this encounter Visit Diagnoses Diagnosis Cervicalgia - Primary History of fusion of cervical spine Arthrodesis status History of lumbar fusion documented in this encounter Additional Health Concerns Assessment Noted Time PHQ-9 Depression Total Score: 13 07/09/2015 7:49 AM CS T documented as of this encounter Care Teams Transportation Maintenance Operator Relationship Specialty Start Date End Date Vanda Guerrero MD PCP - General Internal Medicine 04/08/15 01/08/19 [address] [facility] [address] [place], [place] [address] documented as of this encounter
--- OUTSIDE RECORDS SUMMARY | 2022-02-02 09:17 | XMS_ITS | Encounter Summary ---
:1965 Author Organization [facility] Address [address] [place] [address] Care Team Providers Name Role Phone Selma Good APRN POSITION CLERK Primary Care Provider [phone] Reason for Visit Reason Onset Date Comments Refill Request 01/25/2015 OUNE TOUCH ULTRA SATISH T STRIPS Encounter Details Date Type Department Care Team Description 01/25/2015 Refill [facility] Eag Selma Anthony Refill Request (OUNE 1440 arviem AG [place] POSITION CLERK TOUCH ULTRA TEST STRIPS) [place] [address] [facility] [phone] [facility] [place] [address] (Wo rk) [...] How often do you attend christian or faith Patient refused 08/08/2019 services? Do [...] uncontrolled documented in this encounter Care Teams Scrap Metal Collector Relationship Specialty Start Date End Date Danilo-Selma Mccoy, SWINE GENETICS RESEARCHER POSITION CLERK PCP - General 04/09/08 04/07/15 [address] [facility] [place] [address] documented as of this encounter
--- OUTSIDE RECORDS SUMMARY | 2022-02-02 09:17 | XMS_ITS | Encounter Summary ---
:1965 Author Organization [facility] Address [address] [place] [address] Care Team Providers Name Role Phone Vanda Guerrero MD Primary Care Provider [phone] Reason for Visit Reason Onset Date Comments Refill Request 09/10/2015 METFORMIN HCL 500MG Encounter Details Date Type Department Care Team Description 09/10/2015 Refill [facility] Vanda Lal, Refill Request 1440 Priscilla Bass MD (METFORMIN HCL 500MG) [place] [phone] [address] [facility] [phone] [facility] [place] [address] (Wo rk) [...] How often do you attend faith or uatsdin Patient refused 08/08/2019 services? Do [...] PM CDT Prescription refilled x 1 per [facility] Refill Protocol. Has follow up scheduled. Telephone Encounter - Eri Middleton - 09/10/2015 11:17 AM CDT METFORMIN HCL 500MG Last Written Prescription Date: 06/10/2015 Last Fill Quantity: 180, # refills: 0 Last Office Visit with [facility], P or [facility] prescribing provider: 07/08/2015 Next 5 appointments (look out 90 days) Sep 29, 2015 9:40 AM MyChart Carlos with Vanda Guerrero MD [facility] ([facility]) 14[address] [facility] [place] [address] MICROL <5 08/10/2014 [...] as of this encounter Care Teams Animal Control Supervisor Relationship Specialty Start Date End Date Vanda Guerrero MD PCP - General Internal Medicine 04/08/15 01/08/[address] [place] [address] [place] [address] documented as of this encounter
--- OUTSIDE RECORDS SUMMARY | 2022-02-02 09:17 | XMS_ITS | Encounter Summary ---
:1965 Author Organization [facility] Address [address] [place] [address] Care Team Providers Name Role Phone Selma Good APRN HABITAT MANAGEMENT COORDINATOR Primary Care Provider [phone] Encounter Details Date Type Department Care Team Description 03/24/2015 Orders Only [facility] Florentino, Type 2 diab etes mellitus without complication (H) (Primary Dx); [place] APRN Obesity [address] HABITAT MANAGEMENT COORDINATOR [place] [phone] [address] [facility] [phone] [facility] [place] [address] Social History Tobacco Use [...] How often do you attend jain or nondenominational Patient refused 08/08/2019 services? Do [...] unspecified documented in this encounter Care Teams Salesperson Parts Relationship Specialty Start Date End Date Danilo-Selma Mccoy, RESEARCH PROJECT COORDINATOR HABITAT MANAGEMENT COORDINATOR PCP - General 04/09/08 04/07/[address] [facility] [address] [place], [place] [address] documented as of this encounter
--- OUTSIDE RECORDS SUMMARY | 2022-02-02 09:17 | XMS_ITS | Encounter Summary ---
:1965 Author Organization [facility] Address [address] [place] [address] Care Team Providers Name Role Phone Vanda Guerrero MD Primary Care Provider [phone] Reason for Visit Reason Onset Date Comments Refill Request 05/11/2015 SIMVASTATIN 20MG Encounter Details Date Type Department Care Team Description 05/11/2015 Refill [facility] Vanda Lal, Refill Request [address] [place] SAL[place]NA (SIMVASTATIN 20MG) [place] [id number] 6956 [facility] [phone] [facility] [place] [address] (Wo rk) Social [...] How often do you attend faith or sabianism Patient refused 08/08/2019 services? Do [...] Shante Joya RN - 05/11/2015 12:01 PM MULTI SHARE PROGRAM COORDINATOR Prescription approved per [facility] Refill Protocol. RERE Franco Triage Nurse I SHARE PROGRAM COORDINATOR Telephone Encounter - Marisa Matthew - 05/11/2015 7:56 AM CST SIMVASTATIN 20MG Last Written Prescription Date: 10/06/2014 Last Fill Quantity: 90, # refills: 1 Last Office Visit with [facility] primary care provider: 04/08/2015 CHOL 153 08/10/2014 HDL 61 08/10/2014 LDL 76 08/10/2014 TRIG 79 08/10/2014 CHOLHDLRATIO 2.5 08/10/2014 I SHARE PROGRAM COORDINATOR documented in this encounter Plan of Treatment Not on filedocumented as of this encounter Visit Diagnoses Diagnosis Hyperlipidemia LDL goal <100 - Primary Other and unspecified hyperlipidemia documented in this encounter Care Teams Pbx Manager Relationship Specialty Start Date End Date Vanda Guerrero MD PCP - General Internal Medicine 04/08/15 01/08/19 3045 [facility] [place] [address] documented as of this encounter
--- OUTSIDE RECORDS SUMMARY | 2022-02-02 09:18 | XMS_ITS | Encounter Summary ---
:1965 Author Organization [facility] Address [address] [place] [address] Care Team Providers Name Role Phone Selma Good APRN COLD PATCHER Primary Care Provider [phone] Encounter Details Date Type Department Care Team Description 06/08/2014 Orders Only [facility] Eag an Hyperlipidemia LDL goal <100 1440 [facility] [address] Social History Tobacco Use Types Packs/Day [...] How often do you attend mu-ism or adventism Patient refused 08/08/2019 services? Do [...] goal Results for this DIRECT LDL PANEL ANALYSIS EVALUATOR <100 procedure a re in the results section. documented in this encounter Results Lipid panel reflex to direct LDL (06/08/2014 8:40 AM ANALYSIS EVALUATOR) P athologist Signature Cholesterol 197 <200 mg/dL [facility] Comment: LDL Cholesterol is the primary guide to therapy. The NCEP recommends further evaluation of: patients with cholesterol greater than 200 mg/dL if additional risk facto rs are present, cholesterol greater than 240 mg/dL, triglycerides greater than 1 50 mg/dL, or HDL less than 40 mg/dL. Triglycerides 77 0 - 150 mg/dL [facility] Comment: Fasting specimen HDL Cholesterol 57 >50 mg/dL [facility] LDL Cholesterol Calculated 125 0 - 129 mg/dL [facility] Comment: LDL Cholesterol is the primary guide to therapy: LDL-cholesterol goal in high risk patients is <100 mg/dL and in very high risk patients is <70 mg/dL. VLDL-Cholesterol 15 0 - 30 mg/dL [facility] [place] Cholesterol/HDL Ratio 3.5 0.0 - 5.0 [facility] Specimen Anatomical Collection Method Collection Time Receive d Time (Source) Location / / Volume Laterality Blood specimen 06/08/2014 8:40 AM 014 8:45 (specimen) ANALYSIS EVALUATOR AM ANALYSIS EVALUATOR Selma Good APRN, CNP LAB - BLOOD ORDERABLES Performing Organization Address City/State/ZIP Code Phon e Number [facility] [address] [place] [address] [facility] [address], [place] [address] documented in this encounter Visit Diagnoses Diagnosis Hyperlipidemia LDL goal <100 Other and unspecified hyperlipidemia documented in this encounter Care Teams Talent Coordinator Relationship Specialty Start Date End Date Selma Good APRN COLD PATCHER PCP - General 04/09/08 04/07/15 3305 [facility] [place] [address] documented as of this encounter
--- OUTSIDE RECORDS SUMMARY | 2022-02-02 09:18 | XMS_ITS | Encounter Summary ---
:1965 Author Organization [facility] Address [address] [place] [address] Care Team Providers Name Role Phone Selma Good WOOD FILLER VP PRODUCT MANAGEMENT Primary Care Provider [phone] Reason for Visit Reason Onset Date Comments Orders 08/04/2014 Encounter Details Date Type Department Care Team Description 08/04/2014 Telephone [facility] Eag Selma Anthony, Orders 1440 [facility] WOOD FILLER [place] [address] [place] [address] [facility] [place] [address] [...] How often do you attend spiritism or gnosticist Patient refused 08/08/2019 services? Do [...] and repeat fasting labs in 2 m INE OPERATOR PACKAGING Telephone Encounter - Rossana Adams - 08/04/2014 3:[address] orders for upcoming lab appointment on 08/10/14 Thank you INE OPERATOR PACKAGING documented in this encounter Plan of Treatment Not on filedocumented as of this encounter Results Microalbumin quantitative random urine (08/10/2014 8:57 AM MACHINE OPERATOR PACKAGING) Patholo gist Method Time Signature Creatinine 41 mg/dL [place] [facility] Albumin Urine <5 mg/L [place] mg/L [facility] Albumin Urine Unable to calculate due to low value 0 - 25 [place] mg/g Cr Effective 01/07/2014, the re ference range for this assay has changed to reflect mg/g Cr [facility] new instrumentation/methodology. HOSPITAL Specimen Anatomical Collection Method Collection Time Receive d Time (Source) Location / / Volume Laterality Urine specimen 08/10/2014 8:57 AM 015 8:58 (specimen) MACHINE OPERATOR PACKAGING AM MACHINE OPERATOR PACKAGING Selma Good APRN VP PRODUCT MANAGEMENT LAB - URINE ORDERABLES Performing Organization Address City/State/ZIP Code Phon e Number [facility] [address] [place] [address] [facility] [address] [place] [address] [facility] [address] [place], [place] [address] [facility] Lipid panel reflex to direct LDL (08/10/2014 8:56 AM MACHINE OPERATOR PACKAGING) athologist Signature Cholesterol 153 <200 mg/dL [facility] Comment: LDL Cholesterol is the primary guide to therapy. The NCEP recommends further evaluation of: patients with cholesterol greater than 200 mg/dL if additional risk facto rs are present, cholesterol greater than 240 mg/dL, triglycerides greater than 1 50 mg/dL, or HDL less than 40 mg/dL. Triglycerides 79 0 - 150 mg/dL [place] [facility] HDL Cholesterol 61 >50 mg/dL [place] [facility] LDL Cholesterol Calculated 76 0 - 129 mg/dL [facility] Comment: LDL Cholesterol is the primary guide to therapy: LDL-cholesterol goal in high risk patients is <100 mg/dL and in very high risk patients is <70 mg/dL. VLDL-Cholesterol 16 0 - 30 mg/dL [facility] Cholesterol/HDL Ratio 2.5 0.0 - 5.0 [facility] Specimen Anatomical Collection Method Collection Time Receive d Time (Source) Location / / Volume Laterality Blood specimen 08/10/2014 8:56 AM 015 8:57 (specimen) MACHINE OPERATOR PACKAGING AM MACHINE OPERATOR PACKAGING Selma Good APRN, CNP LAB - BLOOD ORDERABLES Performing Organization Address City/State/ZIP Code Phon e Number [facility] [address] [place] [address] documented in this encounter Visit Diagnoses Diagnosis Type 2 diabetes, HbA1c goal < 7% (H) - P rimary Type II or unspecified type diabetes sukhdev litus without mention of complication, not stated as uncontrolled Hyperlipidemia LDL goal <100 Other and unspecified hyperlipidemia Hypertension goal BP (blood pressure) < 130/80 Unspecified essential hypertension documented in this encounter Care Teams Pressure Tank Operator Relationship Specialty Start Date End Date Selma Good APRN CNP PCP - General 04/09/08 04/07/15 8050 [facility] [place] [address] documented as of this encounter
--- OUTSIDE RECORDS SUMMARY | 2022-02-02 09:18 | XMS_ITS | Encounter Summary ---
:1965 Author Organization [facility] Address [address] [place] [address] Care Team Providers Name Role Phone Selma Good APRN ARMATURE WINDER Primary Care Provider [phone] Reason for Visit Reason Comments Neurologic Problem Neck/low back pain Encounter Details Date Type Department Care Team Description 12/29/2014 Office Visit [facility] Rosalia Main Status p ost lumbar spinal fusion (Primary Dx); Neurosurgery Clinic SEAN Angeles CN P Status post cervical spinal fusion [facility] ORTHOPEDICS [address] [place] [address] [address] [place] [address] [address] [place], [place] [address] [phone] Social History Tobacco Use Types Packs/Day Years [...] How often do you attend voodoo or sikhism Patient refused 08/08/2019 services? Do [...] 12/29/2014 10:[address] Raoul Danielson [facility] Neurosurgery Clinic Visit The following is a cash specialist of a shared visit between Dr. 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 Smoking status: [...] [facility] Main CNP [facility] [place] [address] Pager [phone] Anna Mayberry - 12/29/2014 10:29 AM CDT [...] at C3-C4. RUPERTO SWAN MD [facility] TOBACCO SORTER ARMATURE WINDER IMG CT ORDERABLES CT Lumbar Spine w/o Contrast (01/08/2015 12:36 PM CDT) Anatomical Region Laterality Modality Spine, SUBRAD CT MSK, [facility] CT SPINE Compu jayne Tomography [...] sacroiliac joint. ABRAHAM BAEZ MD [facility] TOBACCO SORTER ARMATURE WINDER IMG CT ORDERABLES documented in this encounter Visit Diagnoses Diagnosis Status post lumbar spinal fusion - Prima ry Arthrodesis status Status post cervical spinal fusion Arthrodesis status Status post lumbar spinal fusion Arthrodesis status Status post cervical spinal fusion Arthrodesis status documented in this encounter Care Teams Group Teacher Relationship Specialty Start Date End Date Danilo-Selma Mccoy APRN ARMATURE WINDER PCP - General 04/09/08 04/07/15 1005 [facility] [place] [address] documented as of this encounter
--- OUTSIDE RECORDS SUMMARY | 2022-02-02 09:18 | XMS_ITS | Encounter Summary ---
:1965 Author Organization [facility] Address [facility] [place] [address] Care Team Providers Name Role Phone Selma Good APRN CAREER PLACEMENT SERVICES COUNSELOR Primary Care Provider Reason for Referral Consultation - Closed Specialty Diagnoses / Procedures Referred By Contact Refer red To Contact Diagnoses Lumbar radiculopathy Cervicalgia History of lumbar fusion History of fusion of cervical spine Chronic left SI joint pain Vanda Guerrero MD [facility] [address] [place] [address] CL-SH- REFERRAL (OP) [address] [place] [address] [address] [place] [address] Phone: [phone] Fax: Referral ID Status Reason Start Date Expiration Date Visits Requ ested Visits Authorized [id number] Closed 12/09/2014 12/09/2015 1 1 Reason for Visit Reason Comments Musculoskeletal Problem left leg pain , neck pain Encounter Details Date Type Department Care Team Description 12/09/2014 Office Visit [facility] Vanda Guerrero Lumbar r adiculopathy (Primary Dx); Pino Toribio MD Cervicalgia; [address] [employer] [address] [place] [address] History of lumbar fusion; [place] [address] [facility] History of fusion of cervical spine; [phone] [place] [address] Chronic left SI joint pain [phone] (Wo rk) Social History Tobacco Use Types [...] How often do you attend taoist or anglican Patient refused 08/08/2019 services? Do [...] visit with our medical spine specialists in [place] documented in this encounter Progress Notes Vanda [...] and Medical/Social/Surgical histories reviewed in [facility] andupdated as appropriate. OBJECTIVE: BP 106/70 mmHg [...] ASSESSMENT/PLAN: ICD-9-CM 1. Lumbar radiculopathy 724.4 ORTHO SHAREMILKER REFERRAL 2. Cervicalgia 723.1 ORTHO SHAREMILKER REFERRAL 3. History of lumbar fusion V45.89 ORTHO SHAREMILKER REFERRAL 4. History of fusion of cervical spine V45.4 ORTHO SHAREMILKER REFERRAL 5. Chronic left SI joint pain 724.6 ORTHO SHAREMILKER REFERRAL 338.29 Recommended a consultation with demo event specialist as patient has had complicated spine [...] of the above issues. Vanda Guerrero MD [facility] documented in this encounter [...] sacrum documented in this encounter Care Teams Marketing Proposal Coordinator Relationship Specialty Start Date End Date Selma Good, SEAN CAREER PLACEMENT SERVICES COUNSELOR PCP - General 04/09/08 04/07/15 4428 [facility] [place] [address] documented as of this encounter
--- OUTSIDE RECORDS SUMMARY | 2022-02-02 09:18 | XMS_ITS | Encounter Summary ---
:1965 Author Organization [facility] Address [address] [place] [address] Care Team Providers Name Role Phone Selma Good APRN, CNP Primary Care Provider [phone] Reason for Visit Reason Onset Date Comments Refill Request 08/24/2014 OMEPRAZOLE 20MG Encounter Details Date Type Department Care Team Description 08/24/2014 Refill [facility] Eag Selma Anthony Refill Request [address]40 [employer] SEAN Angeles CNP (OMEPRAZOLE 20MG) [place] [address] [facility] [phone] [facility] [place] [address] (Wo rk) Social [...] How often do you attend rastafarian or bahai Patient refused 08/08/2019 services? Do [...] reflux documented in this encounter Care Teams L D Rn Relationship Specialty Start Date End Date Danilo-Selma Mccoy, VERTICAL CONTOUR BAND SAW OPERATOR MANDARIN CHINESE TEACHER PCP - General 04/09/08 04/07/[address] [facility] [address] [place], [place] [address] documented as of this encounter
--- OUTSIDE RECORDS SUMMARY | 2022-02-02 09:18 | XMS_ITS | Encounter Summary ---
:1965 Author Organization [facility] Address [facility] [place] [address] Care Team Providers Name Role Phone Selma Good APRN RESEARCH PHYSICIAN Primary Care Provider Reason for Visit (Routine) - Closed Specialty Diagnoses / Procedures Referred By Contact Refer red To Contact Radiology / Radiology. Diagnoses R#NA, BC, written order Sh Ct Scan Procedures CT LUMBAR SPINE WO [address] [place] [address] Phone: Referral ID Status Reason Start Date Expiration Date Visits Requ ested Visits Authorized [id number] Closed 01/01/2015 01/01/2016 1 1 Encounter Details Date Type Department Care Team Description 01/08/2015 Hospital Encounter [facility], [facility] atus post lumbar [facility] SEAN Angeles RESEARCH PHYSICIAN spinal fusion [address] [place] [address] ORTHOPEDICS [phone] [place] [address] Social History Tobacco Use Types Packs/Day Years [...] How often do you attend presybeterian or judaism Patient refused 08/08/2019 services? Do you belong to any clubs or organizations such as No 08/08/2019 presybeterian groups, [employer], fraChauffeur Prive or athletic groups, or school groups? How [...] 2 times capsuleIndications: daily Fibromyalgia fluticasone (FLONASE) [place] 1-2 sprays into 3 Package 3 05/03/2016 [...] Region Laterality Modality Spine, SUBRAD CT MSK, [facility] CT SPINE Compu jayne Tomography Specimen (Source) [...] joint. ABRAHAM BAEZ MD [facility] APRN RESEARCH PHYSICIAN IMG CT ORDERABLES documented in this encounter Visit Diagnoses Diagnosis Status post lumbar spinal fusion Arthrodesis status documented in this encounter Care Teams Coreroom Foundry Laborer Relationship Specialty Start Date End Date Danilo-Selma Mccoy APRN RESEARCH PHYSICIAN PCP - General 04/09/08 04/07/15 4201 [facility] [place] [address] documented as of this encounter
--- OUTSIDE RECORDS SUMMARY | 2022-02-02 09:18 | XMS_ITS | Encounter Summary ---
:1965 Author Organization [place] Address [facility] [place] [address] Care Team Providers Name Role Phone Selma Good APRN CRIMINAL JUSTICE PROFESSOR Primary Care Provider [phone] Reason for Visit Reason Onset Date Comments Referral 10/21/2014 New Dual Encounter Details Date Type Department Care Team Description 10/21/2014 [facility] Pain Pain Management Re ferral (New Dual ) Management Center Program, [place] [address] [place] [address] [address] [place] [address] Social History Tobacco Use Types [...] How often do you attend evangelical or latter-day Patient refused 08/08/2019 services? Do [...] previous pain clinics? No (If yes, send [facility] with welcome letter) 6. Which insurance are [...] schedule new dual with patient. Halie Siddiqui Drilling Field Operator [facility] documented in this encounter Plan of Treatment Not on filedocumented as of this encounter Visit Diagnoses Not on filedocumented in this encounter Care Teams Automotive Parts Counterperson Relationship Specialty Start Date End Date Selma Good APRN CRIMINAL JUSTICE PROFESSOR PCP - General 04/09/08 04/07/15 4039 [facility] [place] [address] documented as of this encounter
--- OUTSIDE RECORDS SUMMARY | 2022-02-02 09:18 | XMS_ITS | Encounter Summary ---
:1965 Author Organization [facility] Address [address] [place] [address] Care Team Providers Name Role Phone Selma Good APRN SMALL WIND ENERGY INSTALLER Primary Care Provider [phone] Reason for Visit Reason Onset Date Comments Procedure 01/13/2015 FABIAN Encounter Details Date Type Department Care Team Description 01/13/2015 Telephone [facility] Pain Pain Management Pr ocedure (FABIAN) Management [facility], [facility] [address] [place] [address] [address] [place] [address] Social History Tobacco Use Types [...] How often do you attend buddhist or mosque Patient refused 08/08/2019 services? Do [...] be done at which interventional clinic site? [facility] Procedure ordered by Dr. AGRAWAL Procedure ordered? [...] or notify pt of denial. Is an librarian head needed? No Patient has a drive home? [...] ?? If so, was it done at [facility]? Yes ?? If not, where was it done? Was the MRI done w/in the last 3 years? Yes If MRI was not done at [facility], [facility] schedule. Route to [...] the patient have any questions? Yvonne Cedillo [facility] documented in this encounter Plan of Treatment Not on filedocumented as of this encounter Visit Diagnoses Not on filedocumented in this encounter Care Teams Geography Teacher Relationship Specialty Start Date End Date Danilo-Selma Mccoy APRN SMALL WIND ENERGY INSTALLER PCP - General 04/09/08 04/07/15 9465 [facility] [place] [address] documented as of this encounter
--- OUTSIDE RECORDS SUMMARY | 2022-02-02 09:18 | XMS_ITS | Encounter Summary ---
:1965 Author Organization [facility] Address [address] [place] [address] Care Team Providers Name Role Phone Selma Good APRN PLASTICS PLATER Primary Care Provider [phone] Reason for Visit Reason Onset Date Comments Refill Request 09/21/2014 SIMVASTATIN 20MG Encounter Details Date Type Department Care Team Description 09/21/2014 Refill [facility] Eag Selma Anthony Refill Request [address] SEAN Angeles CNP (SIMVASTATIN 20MG) [place] [address] 0835 [facility] [phone] [facility] [place] [address] (Wo rk) Social History [...] How often do you attend cheondoism or jain Patient refused 08/08/2019 services? Do [...] Calculated 0 - 129 mg/dL 76 [place] pool technician Nurse Telephone Encounter - Marisa Matthew [...] hyperlipidemia documented in this encounter Care Teams Compliance Monitor Relationship Specialty Start Date End Date Danilo-Selma Mccoy, ESTHETICIAN SPA PLASTICS PLATER PCP - General 04/09/08 04/07/15 4175 [facility] [place] [address] documented as of this encounter
--- OUTSIDE RECORDS SUMMARY | 2022-02-02 09:18 | XMS_ITS | Encounter Summary ---
:1965 Author Organization [place] Address [address] [place] [address] Care Team Providers Name Role Phone Selma Angelo APRN [facility] Primary Care Provider [phone] Reason for Visit Reason Comments Physical Encounter Details Date Type Department Care Team Description 10/06/2014 Office Visit [facility] Florentino, Lilo gen eral medical examination at a health care facility (Primary Dx); Pino Angeles APRN Major depressive disorder, r ecurrent (H); [facility] Type 2 diabetes, HbA1C goal < 7% (H); [place] [phone] [facility] Hyperlipidemia LDL goal <100 ; [phone] [facility] Hypertension goal BP (blood pressure) < 130/80; [place] [address] Anxiety; [phone] GERD (gastroeso phageal reflux disease); (Work) Migraine headache; [phone] Fibromyalgia; (Fax) OME (otitis med ia with [...] How often do you attend confucianist or latter day Patient refused 08/08/2019 services? [...] Histories reviewed and updated in [facility]. ROS: C: NEGATIVE for fever, chills, change [...] list, Allergies, and Medical/Social/Surgical histories reviewed in [facility] andupdated as appropriate. OBJECTIVE: BP [...] - fluticasone (FLONASE) 50 MCG/ACT nasal spray; [place] 1-2 sprays into both nostrils daily Dispense: [...] 2010 USDA's MyPlate Selma Angelo APRN CNP [facility] documented in this encounter Plan of Treatment [...] logist Time Signature Occult Blood Negative NEG [facility] [place] Specimen Anatomical Collection Method Collection Time Receive d Time (Source) Location / / Volume Laterality Stool specimen 01/11/2015 9:00 AM 015 (specimen) CDT 10:42 AM CDT Selma Angelo APRN MAGNESIUM MILL OPERATOR LAB - STOOLS ORDERABLES Performing Organization Address City/State/ZIP Code Phon e Number [facility] [address] [place] [address] [facility] Creatinine (10/06/2014 10:18 AM CDT) P athologist Signature Creatinine 0.76 0.52 - 1.04 [facility] mg/dL [facility] GFR Estimate 79 >60 [facility] mL/min/1.7m [address] Comment: Non GFR Calc GFR Estimate If Black >90 >60 mL/min/1.7m2 F [facility] GFR Calc HOSP ITAL Specimen Anatomical Collection Method Collection Time Receive d Time (Source) Location / / Volume Laterality Blood specimen 10/06/2014 10:18 5 (specimen) AM CDT 10:19 AM CDT Selma Angelo APRN, CNP LAB - BLOOD ORDERABLES Performing Organization Address City/State/ZIP Code Phon e Number [facility] [address] [place] [address] [facility] [address] [place] [place] [address] Hemoglobin A1c (10/06/2014 10:18 AM CDT) P athologist Signature Hemoglobin A1C 5.8 4.3 - 6.0 [facility] Specimen Anatomical Collection Method Collection Time Receive d Time (Source) Location / / Volume Laterality Blood specimen 10/06/2014 10:18 5 (specimen) AM CDT 10:19 AM CDT Selma Karthik Angelo APRN, CNP LAB - BLOOD ORDERABLES Performing Organization Address City/State/ZIP Code Phon e Number [facility] [address] [place] [address] HPV High Risk Types DNA Cervical (10/06/2014 9:50 AM CDT) Component Value Ref Test Analysis Performed At [facility] gist Range Method Time Signature HPV 16 DNA Negative NEG [facility] HPV 18 DNA Negative NEG [facility] Other HR HPV Negative NEG [facility] Final This patient's sample is negative for HP V DNA. ?? [employer] Diagnosis Obstetricians and Gynecolog ists (ACOG) recommends any woman between 30-65 years OF [place] old who receives negative test results on both Pap cytology screening and HPV MEDICAL DNA testing should be rescreened in 5 years. [facility] (Note) [place] METHODOLOGY: ??The Alaina kandy 4800 system uses [...] its performance characteristics determined by the [facility]. It has not been cleared or approved by the FDA. The laboratory is regulated under CLIA as qualified to perform high-complexity testing. This test is used for clinical purp oses. It should not be regarded as investigational or for research. Specimen Cervical Cells [facility] Specimen Anatomical Collection Method Collection Time Receive d Time (Source) Location / / Volume Laterality 10/06/2014 9:50 AM 5 CDT 11:50 AM CDT Selma Angelo APRN MAGNESIUM MILL OPERATOR LAB - BLOOD ORDERABLES Performing Organization Address City/State/ZIP Code Phon e Number [facility] [address] [place] [address] [facility] (ABNORMAL) HPV High Risk Types DNA Cervical (10/06/2014 9:50 AM CDT) Component Value Ref Test Analysis Performed At [facility] Range Method Time Signature HPV 16 DNA Test canceled - [facility] Lab purchase order checker OF [place] error (A) [facility] HPV 18 DNA Test canceled - NEG [facility] Lab purchase order checker [place] error (A) [facility] Other HR HPV Test canceled - NEG [facility] Lab purchase order checker [place] error (A) [facility] Final Test canceled - Lab purchase order checker error [facility] Diagnosis (Note) [place] METHODOLOGY: ??The Alaina kandy 4800 system uses automated extraction, MEDICAL simultaneous amplification of HPV (L1 region) and beta-globi n, [facility] followed by ??real time detection [...] and its performance characteristics determined by the [facility]. It has not been cleared or approved by the FDA. The laboratory is regulated under CLIA as qualified to perform high-complexity testing. This test is used for clinical purp oses. It should not be regarded as investigational or for research. Specimen Test canceled - Lab purchase order checker error UNIVERSITY Description CORRECTED ON 10/08 AT 1146: PREVIOUSLY REPORTED Cer vical Cells [facility] Specimen Anatomical Collection Method Collection Time Receive d Time (Source) Location / / Volume Laterality Cervical Cells 10/06/2014 9:50 AM 015 CDT 10:19 AM CDT Selma Angelo MINIATURE SET BUILDER MAGNESIUM MILL OPERATOR LAB - BLOOD ORDERABLES Performing Organization Address City/State/ZIP Code Phon e Number [facility] [address] [place], [place] [id number] [place] [address] PAP IMAGED THIN LAYER SCREEN (10/06/2014 12:00 AM CDT) Component Value Ref Test Analysis Performed At [facility] gist Range Method Time Signature PAP NIL COPATH Copath Report COPATH Patient Name: MEGAN CHOI MR#: [id number] Specimen #: [id number] Collected: 10/06/2014 Received: 10/06/2014 Reported: 10/07/2014 13:33 [...] DOMENICO Winslow (ASCP) Processed and screened at [facility] CLINICAL HISTORY: Previous normal pap Date of Last Pap: 05/05/2011, Papanicolaou Test Limitations: ??Cervical cytology is a scre ening test with limited sensitivity; regular screening is critical for cancer prevention; Pap tests are primarily effective for the diagnosis/prevention of squamous cell carcinoma, not adenoca rcinomas or other cancers. TESTING LAB LOCATION: [facility] [place], [place] ??[address] COLLECTION SITE: Client: ??[facility] Location: [facility] (R) Specimen (Source) Anatomical [...] left documented in this encounter Care Teams Human Resources Designate Relationship Specialty Start Date End Date Selma Angelo APRN MAGNESIUM MILL OPERATOR PCP - General 04/09/08 04/07/15 [address] [facility] [place] [address] documented as of this encounter
--- OUTSIDE RECORDS SUMMARY | 2022-02-02 09:18 | XMS_ITS | Encounter Summary ---
:1965 Author Organization [facility] Address [address] [place] [address] Care Team Providers Name Role Phone Selma Good APRN, CNP Primary Care Provider [phone] Reason for Visit Reason Onset Date Comments Refill Request 08/17/2014 SIMVASTATIN 20MG Refill Request 08/17/2014 LISINOPRIL 5MG Encounter Details Date Type Department Care Team Description 08/17/2014 Refill [facility] Eag Selma Anthony Refill Request [address]40 [employer] SEAN Angeles CNP (SIMVASTATIN 20MG); [place] [phone] 4908 [facility] Refill Request [phone] NASIR ANDRE (LISINOPRIL 5MG) [place] [address] [...] How often do you attend baptism or restorationist Patient refused 08/08/2019 services? Do [...] hypertension documented in this encounter Care Teams Wicker Worker Relationship Specialty Start Date End Date Danilo-Selma Mccoy, CEMENT CAR DUMPER SOCIAL MEDIA SENIOR ASSOCIATE PCP - General 04/09/08 04/07/[address] [facility] [facility] [address] [place], [place] [address] documented as of this encounter
--- OUTSIDE RECORDS SUMMARY | 2022-02-02 09:18 | XMS_ITS | Encounter Summary ---
:1965 Author Organization [place] Address [address] [place] [address] Care Team Providers Name Role Phone Selma Good APRN, CNP Primary Care Provider [phone] Reason for Visit Reason Onset Date Comments Refill Request 09/20/2014 METFORMIN HCL 1000 M G Encounter Details Date Type Department Care Team Description 09/20/2014 Refill [facility] Eag Selma Anthony Refill Request 1440 [employer] SEAN Angeles CNP (METFORMIN HCL 1000 MG) [place] [address] [facility] [phone] [facility] [place] [address] [...] How often do you attend advent or methodist Patient refused 08/08/2019 services? Do [...] uncontrolled documented in this encounter Care Teams Full Stack Php Developer Relationship Specialty Start Date End Date Danilo-Selma Mccoy, HOSPICE NURSE PRACTITIONER MARKETING TRAFFIC COORDINATOR PCP - General 04/09/08 04/07/15 [address] [facility] [place] [address] documented as of this encounter
--- OUTSIDE RECORDS SUMMARY | 2022-02-02 09:18 | XMS_ITS | Encounter Summary ---
:1965 Author Organization [place] Address [address] [place] [address] Care Team Providers Name Role Phone Selma Good APRN, CNP Primary Care Provider [phone] Reason for Visit Reason Onset Date Comments Refill Request 12/22/2014 LORATADINE-D 24 HOUR TABLET Encounter Details Date Type Department Care Team Description 12/22/2014 Refill [facility] Selma Hodges Refill Request 1440 [employer] SEAN Angeles CNP (LORATADINE-D 24 HOUR [place] [phone] 0426 [facility] TABLET) [phone] [facility] [place] [address] (Wo rk) Social [...] How often do you attend synagogue or buddhist Patient refused 08/08/2019 services? Do [...] CDT Prescription printed, signed and put on MA/STRATEGIC PLANNING DIRECTOR's desk. Thanks! Telephone Encounter - Marisa Matthew - 12/22/2014 4:42 PM CDT LORATADINE-D 24 HOUR TABLET Last Written Prescription Date: 12/17/2013 Last Fill Quantity: 90, # refills: PRN Last Office Visit with [facility] primary care provider: 12/09/2014 Future Office visit: Routing refill request to provider for review/approval because: Drug not on the [facility] refill protocol or controlled substance documented in this encounter Plan of Treatment Not on filedocumented as of this encounter Visit Diagnoses Diagnosis Seasonal allergic rhinitis - Primary Allergic rhinitis, cause unspecified documented in this encounter Care Teams Information Resource Consultant Relationship Specialty Start Date End Date Selma Good APRN [employer] PCP - General 04/09/08 04/07/15 [address] [facility] [address] [place], [place] [address] documented as of this encounter
--- OUTSIDE RECORDS SUMMARY | 2022-02-02 09:18 | XMS_ITS | Encounter Summary ---
:1965 Author Organization [facility] Address [address] [place] [address] Care Team Providers Name Role Phone Selma Good APRN, CNP Primary Care Provider [phone] Reason for Visit Reason Onset Date Comments Refill Request 06/23/2014 FLUTICASONE PROP 50M CG SPRAY Encounter Details Date Type Department Care Team Description 06/23/2014 Refill [facility] Eag Selma Anthony Refill Request 1440 [employer] SEAN Angeles CNP (FLUTICASONE PROP 50MCG [place] [phone] [address] [facility] SPRAY) [phone] [facility] [place] [phone] (Wo rk) Social History Tobacco Use Types [...] How often do you attend protestant or advent Patient refused 08/08/2019 services? Do [...] YOSELIN 06-09-14 Filled PSO. Abigail Burciaga RN WORKOUT OFFICER Telephone Encounter - Marisa Matthew - 06/23/2014 11:53 AM CST Refill request for: FLUTICASONE 50MCG SPRAY Last prescribed by provider: Date: 05/30/2013 Quantity 1 w/ 11 refills Last filled through pharmacy: Date: 05/25/2014 Pharmacy Comments: LUZ ELENA Matthew RT(R) WORKOUT OFFICER documented in this encounter Plan of Treatment Not on filedocumented as of this encounter Visit Diagnoses Diagnosis OME (otitis media with effusion), left - Primary documented in this encounter Care Teams Traffic Counter Relationship Specialty Start Date End Date Danilo-Selma Mccoy, US ADMINISTRATIVE LAW JUDGE PROFESSOR OF GEOLOGY PCP - General 04/09/08 04/07/15 45[address] [facility] [place] [address] documented as of this encounter
--- OUTSIDE RECORDS SUMMARY | 2022-02-02 09:18 | XMS_ITS | Encounter Summary ---
:1965 Author Organization [facility] Address [address] [facility] [place] [address] Care Team Providers Name Role Phone Selma Good APRN LINDERMAN OPERATOR Primary Care Provider [phone] Reason for Visit Reason Onset Date Comments Patient/info Update 01/19/2015 Post LESI Encounter Details Date Type Department Care Team Description 01/19/2015 Telephone [facility] Teagan Solares, Patient/info Update Management Center DO (Post LESI) [address] [place] [address] PAIN [place] [address] [place], [place] [address] [place] [place] [address] [place] [address] [phone] Social History Tobacco Use Types Packs/Day Years [...] How often do you attend hindu or hindu Patient refused 08/08/2019 services? Do [...] pt should call the nurse line at [phone]. Lashae Stack(R) documented in this encounter Plan of Treatment Not on filedocumented as of this encounter Visit Diagnoses Not on filedocumented in this encounter Care Teams Prune Washer Relationship Specialty Start Date End Date Selma Good APRN LINDERMAN OPERATOR PCP - General 04/09/08 04/07/15 5535 [facility] [place] [address] documented as of this encounter
--- OUTSIDE RECORDS SUMMARY | 2022-02-02 09:18 | XMS_ITS | Encounter Summary ---
:1965 Author Organization [facility] Address [address] [place] [address] Care Team Providers Name Role Phone Selma Good FARM AGENT DELIVERY HELPER Primary Care Provider [phone] Reason for Visit Reason Onset Date Comments Orders 06/02/2014 Encounter Details Date Type Department Care Team Description 06/02/2014 Telephone [facility] Eag Selma Anthony, Orders 1440 [facility] FARM AGENT [place] [phone] [place] [address] [facility] [place] [address] (Wo rk) [...] often do you attend oriental orthodox or roman catholic Patient refused 08/08/2019 services? [...] effects to this medication. Selma Good NP [facility] ENT'S LIBRARIAN Telephone Encounter - Rossana Adams - 06/02/2014 12:[address] orders for upcoming lab appointment on 06/08/14 Thank you ENT'S LIBRARIAN documented in this encounter Plan of Treatment Not on filedocumented as of this encounter Results Lipid panel reflex to direct LDL (06/08/2014 8:40 AM PATIENT'S LIBRARIAN) athologist Signature Cholesterol 197 <200 mg/dL [facility] Comment: LDL Cholesterol is the primary guide to therapy. The NCEP recommends further evaluation of: patients with cholesterol greater than 200 mg/dL if additional risk facto rs are present, cholesterol greater than 240 mg/dL, triglycerides greater than 1 50 mg/dL, or HDL less than 40 mg/dL. Triglycerides 77 0 - 150 mg/dL [facility] Comment: Fasting specimen HDL Cholesterol 57 >50 mg/dL [facility] [place] LDL Cholesterol Calculated 125 0 - 129 mg/dL [facility] Comment: LDL Cholesterol is the primary guide to therapy: LDL-cholesterol goal in high risk patients is <100 mg/dL and in very high risk patients is <70 mg/dL. VLDL-Cholesterol 15 0 - 30 mg/dL [facility] [place] Cholesterol/HDL Ratio 3.5 0.0 - 5.0 [facility] Specimen Anatomical Collection Method Collection Time Receive d Time (Source) Location / / Volume Laterality Blood specimen 06/08/2014 8:40 AM 014 8:45 (specimen) PATIENT'S LIBRARIAN AM PATIENT'S LIBRARIAN Selma Good FARM AGENT DELIVERY HELPER LAB - BLOOD ORDERABLES Performing Organization Address City/State/ZIP Code Phon e Number [facility] [address] [place] [address] [facility] [address] [place], [place] [address] documented in this encounter Visit Diagnoses Diagnosis Hyperlipidemia LDL goal <100 - Primary Other and unspecified hyperlipidemia documented in this encounter Care Teams Rn Ccu Relationship Specialty Start Date End Date Selma Good, SEAN DELIVERY HELPER PCP - General 04/09/08 04/07/[address] [facility] [place] [address] documented as of this encounter
--- OUTSIDE RECORDS SUMMARY | 2022-02-02 09:18 | XMS_ITS | Encounter Summary ---
:1965 Author Organization [facility] Address [address] [place] [address] Care Team Providers Name Role Phone Selma Good APRN GRINDER HARDBOARD Primary Care Provider [phone] Encounter Details Date Type Department Care Team Description 01/12/2015 Radiant Appointment [facility] Teagan Solares DDD (degenerative Clinic [facility] disc disease), Pain Management [facility] lumbar [address] [facility] [address] [place] [address] [place], [place] [phone] [address] (Work) [phone] Social History Tobacco Use Types Packs/Day Years [...] How often do you attend holiness or alevism Patient refused 08/08/2019 services? Do [...] be read by a radiologist or a [facility] non-radiologis t provider. Procedure Note Lashae Alexis - 01/12/2015Formatt ing of this note might be different from the original. This exam was marked as non-reportable b ecause it will not be read by a radiologist or a [facility] non-radiologist provider. Teagan Solares DO IMG DIAGNOSTIC [...] dose documented in this encounter Care Teams Top Carrier Relationship Specialty Start Date End Date Selma Good, ELECTRIC SWITCH REPAIRER GRINDER HARDBOARD PCP - General 04/09/08 04/07/15 [address] [facility] [address] [place], [place] [address] documented as of this encounter
--- OUTSIDE RECORDS SUMMARY | 2022-02-02 09:18 | XMS_ITS | Encounter Summary ---
:1965 Author Organization [facility] Address [address] [place] [address] Care Team Providers Name Role Phone Selma Good APRN FACE HARDENER Primary Care Provider [phone] Encounter Details Date Type Department Care Team Description 08/10/2014 Orders Only [facility] Eag an Type 2 diabetes, HbA1C goal < 7% (H); 1440 [employer] Hyperlipidemia LDL goal <100 ; [place] [phone] Hypertension goal BP (blood pressure) < 130/80 [...] How often do you attend yazdanism or yazdanism Patient refused 08/08/2019 services? Do [...] 2 diabete s, Results for this QUANTITATIVE RELIEF DRILLER HbA1C goal < 7% (H) procedure are in Hyperlipidemia LDL the [facility] ts goal <100 section. Hypertension goal BP (blood pressure) < 130/80 LIPID REFLEX TO Routine 08/10/2014 8:56 AM Type 2 diabetes, Re sults for this DIRECT LDL PANEL RELIEF DRILLER HbA1C goal < 7% (H) procedure are in Hyperlipidemia LDL the [facility] ts goal <100 section. Hypertension goal BP (blood pressure) < 130/80 documented in this encounter Results Microalbumin quantitative random urine (08/10/2014 8:57 AM RELIEF DRILLER) [facility] Method Time Signature Creatinine 41 mg/dL [place] Urine [facility] Albumin Urine <5 mg/L [place] mg/L [facility] Albumin Urine Unable to calculate due to low value 0 - 25 [place] mg/g Cr Effective 01/07/2014, the re ference range for this assay has changed to reflect mg/g Cr [facility] new instrumentation/methodology. HOSPITAL Specimen Anatomical Collection Method Collection Time Receive d Time (Source) Location / / Volume Laterality Urine specimen 08/10/2014 8:57 AM 015 8:58 (specimen) RELIEF DRILLER AM RELIEF DRILLER Selma Good APRN FACE HARDENER LAB - URINE ORDERABLES Performing Organization Address City/State/ZIP Code Phon e Number M [facility] [address] [place] [address] [facility] [address] [place] [address] [facility] [address] [place], [place] [address] [facility] Lipid panel reflex to direct LDL (08/10/2014 8:56 AM RELIEF DRILLER) P athologist Signature Cholesterol 153 <200 mg/dL [facility] Comment: LDL Cholesterol is the primary guide to therapy. The NCEP recommends further evaluation of: patients with cholesterol greater than 200 mg/dL if additional risk facto rs are present, cholesterol greater than 240 mg/dL, triglycerides greater than 1 50 mg/dL, or HDL less than 40 mg/dL. Triglycerides 79 0 - 150 mg/dL [place] [facility] HDL Cholesterol 61 >50 mg/dL [place] [facility] LDL Cholesterol Calculated 76 0 - 129 mg/dL [facility] Comment: LDL Cholesterol is the primary guide to therapy: LDL-cholesterol goal in high risk patients is <100 mg/dL and in very high risk patients is <70 mg/dL. VLDL-Cholesterol 16 0 - 30 mg/dL [place] Aleyda COUGHLIN [facility] Cholesterol/HDL Ratio 2.5 0.0 - 5.0 [facility] Specimen Anatomical Collection Method Collection Time Receive d Time (Source) Location / / Volume Laterality Blood specimen 08/10/2014 8:56 AM 015 8:57 (specimen) RELIEF DRILLER AM RELIEF DRILLER Selma Good APRN, CNP LAB - BLOOD ORDERABLES Performing Organization Address City/State/ZIP Code Phon e Number [facility] [address] [place] [address] documented in this encounter Visit Diagnoses Diagnosis Type 2 diabetes, HbA1c goal < 7% (H) Type II or unspecified type diabetes sukhdev litus without mention of complication, not stated as uncontrolled Hyperlipidemia LDL goal <100 Other and unspecified hyperlipidemia Hypertension goal BP (blood pressure) < 130/80 Unspecified essential hypertension documented in this encounter Care Teams Or Nurse Manager Relationship Specialty Start Date End Date Selma Good APRN CNP PCP - General 04/09/08 04/07/15 [address] [facility] [place] [address] documented as of this encounter
--- OUTSIDE RECORDS SUMMARY | 2022-02-02 09:18 | XMS_ITS | Encounter Summary ---
:1965 Author Organization [place] Address [address] [place] [address] Care Team Providers Name Role Phone Selma Good APRN, CNP Primary Care Provider [phone] Reason for Referral - Closed Specialty Diagnoses / Procedures Referred By Contact Refer red To Contact Diagnoses Degenerative disc disease Rosalia Main APRN CNP [facility] [address] [facility] [address] [place] [address] Referral ID Status Reason Start Date Expiration Date Visits Requ ested Visits Authorized [id number] Closed 01/08/2015 01/08/2016 1 1 Encounter Details Date Type Department Care Team Description 01/08/2015 Orders Only [facility] Rosalia Main cleopatra disc Neurosurgery Clinic SEAN Angeles P disease (Primary Dx) Bozena [facility] [address] [facility] [address] [place] [address] [phone] Social History Tobacco Use Types Packs/Day Years [...] How often do you attend sabianist or congregational Patient refused 08/08/2019 services? Do [...] Name Type Priority Associated Diagnoses Order [facility] Referral Routine Degenerative disc Ordered: 01/08/2015 ([place]) REFERRAL disease documented as of this encounter Visit Diagnoses Diagnosis Degenerative disc disease - Primary Degeneration of intervertebral disc, sit e unspecified documented in this encounter Care Teams Food Quality Technician Relationship Specialty Start Date End Date Selma Good APRN WARP HAND PCP - General 04/09/08 04/07/15 [address] [facility] [place] [address] documented as of this encounter
--- OUTSIDE RECORDS SUMMARY | 2022-02-02 09:18 | XMS_ITS | Encounter Summary ---
:1965 Author Organization [place] Address [address] [place] [address] Care Team Providers Name Role Phone Selma Good APRN RAIL FILLER Primary Care Provider Encounter Details Date Type Department Care Team Description 01/11/2015 Orders Only [facility] Eag an Routine general medical [address] [facility] [place] [address] care facility [phone] Social History Tobacco Use Types Packs/Day Years [...] How often do you attend synagogue or moravian Patient refused 08/08/2019 services? Do [...] logist Time Signature Occult Blood Negative NEG [facility] FIT [facility] Specimen Anatomical Collection Method Collection Time Receive d Time (Source) Location / / Volume Laterality Stool specimen 01/11/2015 9:00 AM 015 (specimen) CDT 10:42 AM CDT Selma Good APRN RAIL FILLER LAB - STOOLS ORDERABLES Performing Organization Address City/State/ZIP Code Phon e Number [facility] [address] [place] [address] [facility] documented in this encounter Visit Diagnoses Diagnosis Routine general medical examination at a health care facility documented in this encounter Care Teams Optics Technical Officer Relationship Specialty Start Date End Date Danilo-Selma Mccoy, MEDART OPERATOR RAIL FILLER PCP - General 04/09/08 04/07/[address] [facility] [address] [place], [place] [address] documented as of this encounter
--- OUTSIDE RECORDS SUMMARY | 2022-02-02 09:18 | XMS_ITS | Encounter Summary ---
:1965 Author Organization [facility] Address [address] [place] [address] Care Team Providers Name Role Phone Selma Good APRN, CNP Primary Care Provider [phone] Reason for Visit Reason Onset Date Comments Refill Request 09/22/2014 TOPIRAMATE 50MG Encounter Details Date Type Department Care Team Description 09/22/2014 Refill [facility] Selma Hodges Refill Request 14[address] SEAN Angeles CNP (TOPIRAMATE 50MG) [place] [phone] [place] [address] [facility] DAV[place] [id number] (Wo rk) Social History Tobacco Use Types [...] How often do you attend bahai or baptist Patient refused 08/08/2019 services? Do [...] migrainosus documented in this encounter Care Teams Data Security Consultant Relationship Specialty Start Date End Date Danilo-Selma Mccoy, MARKET INVESTIGATOR FLIGHT ENGINEER PERFORMANCE QUALIFIED PCP - General 04/09/08 04/07/[address] [facility] [address] [place], [place] [address] documented as of this encounter
--- OUTSIDE RECORDS SUMMARY | 2022-02-02 09:18 | XMS_ITS | Encounter Summary ---
:1965 Author Organization [place] Address [address] [place] [address] Care Team Providers Name Role Phone Selma Good APRN DIRECT SUPPORT PROFESSIONAL CAREGIVER Primary Care Provider [phone] Reason for Visit Reason Onset Date Comments Other 01/08/2015 Encounter Details Date Type Department Care Team Description 01/08/2015 Telephone [facility] Neurosurgery [place], Angella Angeles, Other Clinic [place] UTILITY MANAGER DIRECT SUPPORT PROFESSIONAL CAREGIVER [address] [facility] [address] [place] [address] [address] [place], [place] [address] (Wo rk) Social History [...] How often do you attend worship or nondenominational Patient refused 08/08/2019 services? Do [...] and lumbar spine. Recommend injection therapy. Referredto [facility]. documented in this encounter Plan of Treatment Not on filedocumented as of this encounter Visit Diagnoses Not on filedocumented in this encounter Care Teams Fast Food Crew Member Relationship Specialty Start Date End Date Selma Good APRN CNP PCP - General 04/09/08 04/07/[address] [facility] [address] [place], [place] [address] documented as of this encounter
--- OUTSIDE RECORDS SUMMARY | 2022-02-02 09:18 | XMS_ITS | Encounter Summary ---
:1965 Author Organization [facility] Address [address] [place] [address] Care Team Providers Name Role Phone eSlma Good APRN CONSUMER EDUCATOR Primary Care Provider [phone] Reason for Visit Reason Onset Date Comments Procedure 01/08/2015 Encounter Details Date Type Department Care Team Description 01/08/2015 Telephone [facility] Pain Pain Management Pr nela, Procedure Management [facility] [address] [place] [address] [place], [place] [phone] Social History Tobacco Use [...] How often do you attend jewish or jainism Patient refused 08/08/2019 services? Do [...] done at which interventional clinic site? [facility] Procedure ordered by Dr. Main Procedure ordered? [...] or notify pt of denial. Is an disaster recovery analyst needed? No Patient has a drive home? [...] ?? If so, was it done at [facility]? Yes ?? If not, where was it done? Was the MRI done w/in the last 3 years? Yes If MRI was not done at [facility], [facility] schedule. Route to [...] the patient have any questions? Halie Siddiqui [facility] Telephone Encounter - Veronica Porter RN - 01/08/2015 3:46 PM CDT Routing to front desk coordinator to schedule patient for LESI vs other lumbar procedure TBD by pain specialist.Please include in the visit note that order is for lumbar injection first, then cervical, and that patient has history of spine surgery. Veronica Porter RN-[facility] Tele[facility] Encounter - Yvonne Cedillo - 01/08/2015 2:02 PM CDT Procedure or injection only (pt will be contacted within 24 hrs to schedule): Lumbar injections thencervical. Please advise on scheduling. Yvonne Cedillo Conveyor Maintenance Mechanic [facility] documented in this encounter Plan of Treatment Not on filedocumented as of this encounter Visit Diagnoses Not on filedocumented in this encounter Care Teams Metal Drill Press Operator Relationship Specialty Start Date End Date Danilo-Selma Mccoy, SEAN CONSUMER EDUCATOR PCP - General 04/09/08 04/07/15 [address] [facility] [place] [address] documented as of this encounter
--- OUTSIDE RECORDS SUMMARY | 2022-02-02 09:18 | XMS_ITS | Encounter Summary ---
:1965 Author Organization [facility] Address [address] [place] [address] Care Team Providers Name Role Phone Selam Good APRN, CNP Primary Care Provider [phone] Reason for Visit Reason Onset Date Comments Refill Request 08/25/2014 TOPIRAMATE 50MG Encounter Details Date Type Department Care Team Description 08/25/2014 Refill [facility] Selma Hodges Refill Request [address] [employer] SEAN Angeles CNP (TOPIRAMATE 50MG) [place] [phone] [place] [address] [facility] DAV[place] [phone] (Wo rk) Social History Tobacco Use Types [...] How often do you attend scientology or church Patient refused 08/08/2019 services? Do [...] I sent her a reminder letter, via [employer] and also mailed her a letter Meeta [...] migrainosus documented in this encounter Care Teams Restrooms Or Lounges Maid Relationship Specialty Start Date End Date Danilo-Selma Mccoy, CABBAGE SALTER TRAINING DEVELOPMENT SPECIALIST PCP - General 04/09/08 04/07/15 [address] [facility] [place] [address] documented as of this encounter
--- OUTSIDE RECORDS SUMMARY | 2022-02-02 09:18 | XMS_ITS | Encounter Summary ---
:1965 Author Organization [facility] Address [address] [place] [address] Care Team Providers Name Role Phone Selma Good APRN ENVELOPE ADJUSTER Primary Care Provider [phone] Reason for Visit Reason Onset Date Comments Panel Management 08/11/2014 Encounter Details Date Type Department Care Team Description 08/11/2014 Telephone [facility] Selma Hodges Panel Management [address] [facility] J, SEAN ENVELOPE ADJUSTER [place] [address] [facility] [phone] [facility] [place] [address] (Wo rk) [...] How often do you attend sikh or amish Patient refused 08/08/2019 services? Do [...] Review Date of last visit with a [facility] provider: KATHY on 06-09-14. Date of next visit with a [facility] provider: None. Problem List Patient Active Problem List Diagnosis ??? Migraine headache ??? GERD (Gastroesophageal Reflux Disease) ??? Obesity ??? Family History of HI (Myocardial Infarction) ??? Cervical Pain ??? Insomnia [...] Indicate fasting or not fasting. [place] Mark CMA(AASC) INE ROOM ATTENDANT documented in this encounter Plan of Treatment Not on filedocumented as of this encounter Visit Diagnoses Not on filedocumented in this encounter Care Teams Optic Fibre Drawer Relationship Specialty Start Date End Date Selma Good APRN ENVELOPE ADJUSTER PCP - General 04/09/08 04/07/15 [address] [facility] [place] [address] documented as of this encounter
--- OUTSIDE RECORDS SUMMARY | 2022-02-02 09:18 | XMS_ITS | Encounter Summary ---
:1965 Author Organization [place] Address [facility] [place] [address] Care Team Providers Name Role Phone Selma Good APRN CISCO CONSULTANT Primary Care Provider [phone] Reason for Visit (Routine) - Closed Specialty Diagnoses / Procedures Referred By Contact Refer red To Contact Radiology / Radiology. Diagnoses R#NA, BC, written order Sh Ct Scan Procedures CT CERVICAL SPINE WO [address] [place] [phone] Phone: Referral ID Status Reason Start Date Expiration Date Visits Requ ested Visits Authorized [id number] Closed 01/01/2015 01/01/2016 1 1 Encounter Details Date Type Department Care Team Description 01/08/2015 Hospital Encounter [facility], [facility] atus post cervical [facility] SEAN Angeles CISCO CONSULTANT spinal fusion [address] [place] [phone] ORTHOPEDICS [phone] [place] [place], [place] [address] Social History Tobacco Use Types Packs/Day Years [...] How often do you attend religion or voodoo Patient refused 08/08/2019 services? Do you belong to any clubs or organizations such as No 08/08/2019 religion groups, [employer], fraZAPITANO or athletic groups, or school groups? How [...] 2 times capsuleIndications: daily Fibromyalgia fluticasone (FLONASE) Burton 1-2 sprays into 3 Package 3 05/03/2016 [...] Spine, SUBRAD CT NEURO, SUBRAD CT NEURO, [facility] CT SPINE Computed Tomography Specimen (Source) Anatomical [...] C3-C4. MARY SWAN MD Rosalia Main APRN CISCO CONSULTANT IMG CT ORDERABLES documented in this encounter Visit Diagnoses Diagnosis Status post cervical spinal fusion Arthrodesis status documented in this encounter Care Teams Cotton Candy Maker Relationship Specialty Start Date End Date Selma Good APRN CNP PCP - General 04/09/08 04/07/[address] [facility] [address] [place], [place] [address] documented as of this encounter
--- OUTSIDE RECORDS SUMMARY | 2022-02-02 09:18 | XMS_ITS | Encounter Summary ---
:1965 Author Organization [facility] Address [address] [place] [address] Care Team Providers Name Role Phone Selma Good APRN AGRICULTURAL RESEARCH TECHNICIAN Primary Care Provider [phone] Reason for Visit Reason Comments Pain caudal TRACE Encounter Details Date Type Department Care Team Description 01/12/2015 Radiology [facility] Teagan Solares Lumbosacra l spondylosis without myelopathy (Primary Dx); Injection Office Pain Management DO Noreen Lumbar radiculopathy Visit [address] [address] [place] [address] [place], [place] [phone] [address] (Work) [phone] Social History Tobacco Use Types Packs/Day Years [...] How often do you attend caodaism or restorationism Patient refused 08/08/2019 services? Do [...] Santana RN - 01/12/2015 8:[address] [facility] Procedure Discharge Instructions Nurse line: [phone] Appt line: [phone] Teagan Solares You had [...] center nursing line during work hours at [phone] or organizational effectiveness director physician after hours at [phone]: -Fever over 100 degree F -Swelling, bleeding, redness, drainage, warmth at the injection site -Progressive weakness or numbness on your legs or arms -Loss of bowel or bladder function -Unusual headache that is not relieved by Tylenol -Unusual new onset of pain that is not improving documented in this encounter Progress Notes Teagan Solares DO - 01/12/2015 9:20 AM CDT [facility] - Procedure Note Date of Service: 01/12/15 Procedure performed: caudal epidural steroid injection with fluoroscopic guidance Diagnosis: Lumbar spondylosis; Lumbar radiculitis/radiculopathy Gameplay Programmer: Teagan Solares DO Anesthesia: none Indications: Megan [...] the patient was advised to contact the [facility] for any of the [...] and for post-procedure evaluation. Teagan Solares DO [facility] documented in this encounter Nursing Notes [...] patient home? Yes Signature/Title: SHALA SANTANA RN Financial Rep [facility] Shala Santana RN - 01/12/2015 8:27 AM [...] active infection? NO Does patient have a route driver salesperson? 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 Not Applicable Are the vital signs normal? Yes ANDREW Mack, RN-BC Financial Rep [facility] documented in this encounter Plan of Treatment Not on filedocumented as of this encounter Visit Diagnoses Diagnosis Lumbosacral spondylosis without myelopat hy - Primary Lumbar radiculopathy Thoracic or lumbosacral neuritis or radi culitis, unspecified documented in this encounter Care Teams Manager Interface Relationship Specialty Start Date End Date Danilo-Selma Mccoy APRN AGRICULTURAL RESEARCH TECHNICIAN PCP - General 04/09/08 04/07/15 [address] [facility] [place] [address] documented as of this encounter
--- OUTSIDE RECORDS SUMMARY | 2022-02-02 09:18 | XMS_ITS | Encounter Summary ---
:1965 Author Organization [facility] Address [address] [place] [address] Care Team Providers Name Role Phone Selma Good APRN [facility] Primary Care Provider [phone] Reason for Visit Reason Comments Anxiety Depression Encounter Details Date Type Department Care Team Description 06/09/2014 Office Visit [facility] Florentino, Insomnia (P rimary Dx); Pino Angeles APRN Migraine headache; [address] [facility] Type 2 diabetes, HbA1C goal < 7% (H); [place] [phone] [address] [facility] Hyperlipidemia LDL goal <100 ; [phone] [facility] Hypertension goal BP (blood pressure) < 130/80; [place] [address] Major depressive disorder, recurrent (H) ; [phone] Anxiety; (Work) OME (otitis media with effusion), [...] How often do you attend sabianist or lutheran Patient refused 08/08/2019 services? Do [...] Comments Blood Pressure 90/66 06/09/2014 9:31 AM AERIAL SURVEY TECHNICIAN Pulse 80 06/09/2014 9:31 AM AERIAL SURVEY TECHNICIAN Temperature 36 ??C (96.8 ??F) 06/09/2014 9:31 AM AERIAL SURVEY TECHNICIAN Respiratory Rate 16 06/09/2014 9:31 AM AERIAL SURVEY TECHNICIAN Oxygen Saturation - - Inhaled Oxygen Concentration - - Weight 68.7 kg (151 lb 6.4 oz) 06/09/2014 9:31 AM AERIAL SURVEY TECHNICIAN Height - - Body Mass Index 27.69 10/27/2013 8:53 AM CDT documented in this encounter Patient Instructions Patient InstructionsSelma Good NP - 06/09/2014 9:51 AM AERIAL SURVEY TECHNICIAN Restart the simvastatin and we can repeat this lab in about 2 months. Your BP is excellent today so you can continue to be OFF lisinopril. Let's increase the amitriptyline to a total of 40 mg at bedtime. RETURN TO CLINIC 1 month. AL SURVEY TECHNICIAN documented in this encounter Progress Notes [...] HELGA-7 SCORE 04/29/2014 Total Score 5 PHQ-9 Ethiopian PHQ-9 Any Language GAD7 At last visit, [...] Disease) ??? Obesity ??? Family History of MD (Myocardial Infarction) ??? Cervical Pain ??? Insomnia [...] Relation Age of Onset ??? Cardiovascular Mother MD age 72 ??? Cardiovascular Father MD early 40s, subsequent bipass ??? Diabetes Mother [...] TO CLINIC [address] NP [facility] AL SURVEY TECHNICIAN documented in this encounter Nursing Notes [place] [...] using cuff size: regular [place] Mark CMA(AAMA) AL SURVEY TECHNICIAN documented in this encounter Plan of [...] ral documented in this encounter Care Teams Student Truck Driver Relationship Specialty Start Date End Date Danilo-Selma Mccoy, GENERATOR SWITCHBOARD OPERATOR RADIO PRODUCER PCP - General 04/09/08 04/07/15 [address] [facility] [place] [address] documented as of this encounter
--- OUTSIDE RECORDS SUMMARY | 2022-02-02 09:19 | XMS_ITS | Encounter Summary ---
:1965 Author Organization [facility] Address [address] [place] [address] Care Team Providers Name Role Phone Selma Good APRN [facility] Primary Care Provider [phone] Reason for Visit Reason Comments Diabetes Encounter Details Date Type Department Care Team Description 12/10/2012 Office Visit [facility] Florentino, Type 2 diab etes, HbA1C goal < 7% (H) (Primary Dx); Pino Angeles APRN Major depressive disorder, r ecurrent (H); [address] [facility] Hyperlipidemia LDL goal <100; [place] [phone] [address] [facility] Hypertension goal BP (blood pressure) < 130/80; [phone] [facility] DAVID Gilbert [id number] Social History Tobacco Use Types Packs/Day Years [...] How often do you attend bahai or islam Patient refused 08/08/2019 services? Do [...] non-fasting labs in May. Selma Good NP, PUSH BENCH OPERATOR HELPER [facility] documented in this encounter Nursing Notes [...] unspecified documented in this encounter Care Teams Strategic Partnership Manager Relationship Specialty Start Date End Date Selma Good, SURVEY ANALYST BIODIESEL PLANT MANAGER PCP - General 04/09/08 04/07/[address] [facility] [address] [place], [place] [address] documented as of this encounter
--- OUTSIDE RECORDS SUMMARY | 2022-02-02 09:19 | XMS_ITS | Encounter Summary ---
:1965 Author Organization [place] Address [address] [place] [address] Care Team Providers Name Role Phone Selma Good APRN SHUTDOWN PLANNER Primary Care Provider [phone] Reason for Visit Reason Comments UTI Recheck Medication Encounter Details Date Type Department Care Team Description 02/07/2013 Office Visit [facility] Florentino UTI (lower urinary tract infection) (Primary Dx); Pino Angeles APRN Dysuria; [address] [employer] SHUTDOWN PLANNER Nail fungus; [place] [phone] 9859 [facility] Hypertension goal BP (blood pressure) < 130/80; [phone] [facility] [place] [id number] Social History Tobacco Use Types Packs/Day Years [...] How often do you attend amish or worship Patient refused 08/08/2019 services? Do [...] underwear and pantyhose every day. Published by [employer]. This content is reviewed periodically and is subject to change as new health information becomes available. The information is intended to inform and educate and is not a replacement for medical evaluation, advice, diagnosis or treatment by a healthcare professional. Developed by Edith Felix RN, [place], and [email or web address]. ? 2009 [email or web address] and/or its affiliates. All Rights Reserved. [...] underwear and pantyhose every day. Published by [employer]. This content is reviewed periodically and is subject to change as new health information becomes available. The information is intended to inform and educate and is not a replacement for medical evaluation, advice, diagnosis or treatment by a healthcare professional. Developed by Edith Felix RN, DAVID, and [employer]. ? 2009 [employer] and/or its affiliates. All Rights Reserved. Copyright ?? Clinical Reference Systems 2010 Selma Good NP, NURSE STAFF [facility] .soapo documented in this [...] Component Value Ref Test Analysis Performed At [facility] Method Time Signature Specimen Urine [facility] LAB Culture Micro 10,000 to 50,000 colonies/mL Mixed gram negative and positive jaylen [facility] Multiple species present, probable perineal contamination. MICROBIOLOGY Susceptibility testing not routinely done Micro Report FINAL 02/09/2013 [facility] Status MICROBIOLOGY Specimen Anatomical Collection Method Collection Time Receive d Time (Source) Location / / Volume Laterality Urine specimen 02/07/2013 4:40 PM 013 4:45 (specimen) CDT PM CDT Selma Good APRN SHUTDOWN PLANNER LAB - MICRO GENERAL ORD ERABLES Performing Organization Address City/State/ZIP Code Phon e Number [address] [address] [facility] [address] [place] [address] [facility] MICROBIOLOGY (ABNORMAL) Urine Microscopic (02/07/2013 3:52 PM CDT) [facility] Method Time Signature WBC Urine 5-10 (A) 0 - 2 [place] RBC Urine 2-5 (A) 0 - 2 [facility] Squamous Few FEW /LPF [place] Epithelial /LPF [facility] Urine LAB Bacteria Urine Few (A) NEG /HPF [facility] Mucous Urine Present (A) NEG /LPF [facility] Specimen Anatomical Collection Method Collection Time Receive d Time (Source) Location / / Volume Laterality 02/07/2013 3:52 PM 3 3:57 CDT PM CDT Selma Good APRN, CNP LAB - URINE ORDERABLES Performing Organization Address [facility]/ZIP [facility] Phon e Number [facility] [address] [place] [address] [facility] [address] [place] [address] (ABNORMAL) *UA reflex to Microscopic and Culture (02/07/2013 3:52 PM CDT) [facility] Method Time Signature Color Urine Yellow [facility] Appearance Urine Clear [facility] Glucose Urine Negative NEG mg/dL [facility] Bilirubin Urine Negative NEG [facility] Ketones Urine Negative NEG mg/dL [facility] Specific [place] 1.010 1.003 - [place] Urine 1.035 [facility] Blood Urine Moderate (A) NEG [facility] pH Urine 7.0 5.0 - 7.0 [place] pH [facility] Protein Albumin Negative NEG mg/dL [place] Urine [facility] Urobilinogen 0.2 0.2 - 1.0 [place] Urine EU/dL [facility] Nitrite Urine Negative NEG [facility] Leukocyte Trace (A) NEG [place] Esterase Urine [facility] Source Midstream [place] Urine [facility] Specimen Anatomical Collection Method Collection Time Receive d Time (Source) Location / / Volume Laterality Urine specimen 02/07/2013 3:52 PM 013 3:57 (specimen) CDT PM CDT Selma Good APRN, CNP LAB - URINE ORDERABLES Performing Organization Address City/State/ZIP Code Phon e Number [facility] [address] [facility] DAV[place] [phone] [facility] [address] [facility] [place] [phone] documented in this encounter Visit Diagnoses Diagnosis UTI (lower urinary tract infection) - Pr imary Urinary tract infection, site not specif ied Dysuria Nail fungus Dermatophytosis of nail Hypertension goal BP (blood pressure) < 130/80 Unspecified essential hypertension Fibromyalgia Mylagia and myositis, unspecified documented in this encounter Care Teams Corporate Law Assistant Relationship Specialty Start Date End Date Selma Good, WASHROOM ATTENDANT SHUTDOWN PLANNER PCP - General 04/09/08 04/07/15 [address] [facility] [place] [address] documented as of this encounter
--- OUTSIDE RECORDS SUMMARY | 2022-02-02 09:19 | XMS_ITS | Encounter Summary ---
:1965 Author Organization [place] Address [address] [place] [address] Care Team Providers Name Role Phone Selma Good APRN INTERPRETIVE PROGRAM COORDINATOR Primary Care Provider [phone] Reason for Referral Specialty Diagnoses / Procedures Referred By Contact Refer red To Contact Rayo Whitehead DPM [address] [place] [address] Referral ID Status Reason Start Date Expiration Date Visits Requ ested Visits Authorized Reason for Visit Reason Comments Musculoskeletal Problem left great toe- possible fun anette. Diabetic foot check. Encounter Details Date Type Department Care Team Description 02/21/2013 Office Visit [facility] Rayo Whitehead Type II or unspecified type diabetes mellitus without mention of complication, not stated as uncontrolled (Primary Dx); Pino Jacome DPM Contusion of toe [address] [place] [address] E [phone] [address] [place], [place] [address] Social History Tobacco Use Types [...] How often do you attend tenriism or yazidism Patient refused 08/08/2019 services? Do you belong to any clubs or organizations such as No 08/08/2019 tenriism groups, [place], fraternal or athletic groups, or school groups? [...] sensation to light touch and using 5.07 [place] wire is present to both feet. Skin [...] Notes 02/21/2013 2:30 PM CDT >> LIANA Freeman Feb 21, 2013 2:29 PM Patient presents [...] toe documented in this encounter Care Teams Patent Drafter Relationship Specialty Start Date End Date Danilo-Selma Mccoy, MACHINE PACKAGE SEALER INTERPRETIVE PROGRAM COORDINATOR PCP - General 04/09/08 04/07/15 [address] [facility] [place] [address] documented as of this encounter
--- OUTSIDE RECORDS SUMMARY | 2022-02-02 09:19 | XMS_ITS | Encounter Summary ---
:1965 Author Organization [place] Address [address] [place] [address] Care Team Providers Name Role Phone Selma Good APRN SAND FILLER Primary Care Provider Reason for Referral Consultation - Closed Specialty Diagnoses / Procedures Referred By Contact Refer red To Contact Diagnoses OME (otitis media with effusion), bilateral Selma Good, [place] ALLERGY AND HEALTH PHYSICS TECHNICIAN [facility] ASTHMA [address] [facility] [place] [address] Referral ID Status Reason Start Date Expiration Date Visits Requ ested Visits Authorized [id number] Closed 12/17/2013 06/15/2014 1 1 Reason for Visit Reason Comments RECHECK Encounter Details Date Type Department Care Team Description 12/17/2013 Office Visit [facility] Le Good al lergic rhinitis (Primary Dx); Pino Angeles APRN OME (otitis media with effus ion), bilateral; [address] [employer] [facility] Amenorrhea [place] [phone] [address] [facility] [phone] [facility] [place] [address] Social History [...] How often do you attend religious or anglican Patient refused 08/08/2019 services? Do you belong to any clubs or organizations such as No 08/08/2019 religious groups, [employer], fraTellja or athletic groups, or school groups? How [...] Disease) ??? Obesity ??? Family History of [place] (Myocardial Infarction) ??? Cervical Pain ??? Insomnia [...] file for this visit. Selma Good NP, METAL REED TUNER [facility] documented in this encounter Nursing Notes [place] [...] menstruation documented in this encounter Care Teams Household Appliances Salesperson Relationship Specialty Start Date End Date Selma Good, HEALTH PHYSICS TECHNICIAN SAND FILLER PCP - General 04/09/08 04/07/15 [address] [facility] [place] [address] documented as of this encounter
--- OUTSIDE RECORDS SUMMARY | 2022-02-02 09:19 | XMS_ITS | Encounter Summary ---
:1965 Author Organization [place] Address [address] [place] [address] Care Team Providers Name Role Phone Selma Good APRN TEXTILE STYLIST Primary Care Provider [phone] Reason for Visit Reason Onset Date Comments Refill Request 04/11/2014 ACCU CHEK test strp Encounter Details Date Type Department Care Team Description 04/11/2014 Refill [facility] Eag Selma Anthony Refill Request (ACCU [address] [facility] J, SEAN TEXTILE STYLIST CHEK test strp) [place] [phone] [facility] [phone] [facility] [place] [phone] (Wo rk) Social History Tobacco Use Types [...] How often do you attend baptist or christianity Patient refused 08/08/2019 services? Do [...] per Medication Refill Protocol. Bambi Morales RN GEMENT QUALITY CONSULTANT Telephone Encounter - Tima Melchor - 04/11/2014 [...] uncontrolled documented in this encounter Care Teams Bulk Plant Supervisor Relationship Specialty Start Date End Date Danilo-Selma Mccoy, ECHOCARDIOGRAPHY TECHNOLOGIST TEXTILE STYLIST PCP - General 04/09/08 04/07/15 [address] [facility] [place] [id number] documented as of this encounter
--- OUTSIDE RECORDS SUMMARY | 2022-02-02 09:19 | XMS_ITS | Encounter Summary ---
:1965 Author Organization [place] Address [address] [place] [address] Care Team Providers Name Role Phone Selma Good APRN [facility] Primary Care Provider [phone] Reason for Visit Reason Comments Musculoskeletal Problem Encounter Details Date Type Department Care Team Description 03/25/2014 Office Visit [facility] Florentino, Janey speci fihermes idiopathic peripheral neuropathy (Primary Dx); Pino Angeles APRN Insomnia; [address] [facility] Type 2 diabetes, HbA1C goal < 7% (H); [place] [phone] [place] [address] Major depressive disorder, r ecurrent (H); [phone] [facility] DAV[place] [phone] Social History Tobacco Use Types Packs/Day Years [...] How often do you attend pentecostal or hindu Patient refused 08/08/2019 services? Do [...] Disease) ??? Obesity ??? Family History of [place] (Myocardial Infarction) ??? Cervical Pain ??? Insomnia [...] Relation Age of Onset ??? Cardiovascular Mother [place] age 72 ??? Cardiovascular Father [place] early 40s, subsequent bipass ??? Diabetes Mother [...] month for follow up. Selma Good NP, DIE FORGER [facility] documented in this encounter Nursing [...] Signature Vitamin D 36 30 - 75 [facility] Deficiency ug/L CAMPUS LABS screening Comment: Season, race, dietary intake, and treatm ent affect the concentration of 54-tkoshno-Iinosln D. Values may decrea se during winter [...] questions, pl ease contact the laboratory at [phone]. Specimen Anatomical Collection Method Collection Time Receive d Time (Source) Location / / Volume Laterality Blood specimen 03/25/2014 3:16 PM 014 3:19 (specimen) CDT PM CDT Selma Good APRN, CNP LAB - BLOOD ORDERABLES Performing Organization Address City/State/ZIP Code Phon e Number [facility] [address] [place] [address] [facility] TSH with free T4 reflex (03/25/2014 3:16 PM CDT) athologist Signature TSH 2.39 0.40 - 4.00 [facility] mU/L [place] Comment: Effective 01/07/2014, the reference range for this assay has changed to reflect new instrumentation/methodology. Specimen Anatomical Collection Method Collection Time Receive d Time (Source) Location / / Volume Laterality Blood specimen 03/25/2014 3:16 PM 014 3:19 (specimen) CDT PM CDT Selma Good APRN, CNP LAB - BLOOD ORDERABLES Performing Organization Address City/[facility]/ZIP Code Phon e Number [facility] [address] [place] [address] [facility] [address] [place] [address] 20 Hemoglobin A1c (03/25/2014 3:16 PM CDT) athologist Signature Hemoglobin A1C 5.9 4.3 - 6.0 [facility] Specimen Anatomical Collection Method Collection Time Receive d Time (Source) Location / / Volume Laterality Blood specimen 03/25/2014 3:16 PM 014 3:19 (specimen) CDT PM CDT Selma Good APRN, CNP LAB - BLOOD ORDERABLES Performing Organization Address City/State/ZIP Code Phon e Number [facility] [address] [place] [address] documented in this encounter Visit Diagnoses Diagnosis [...] unspecified documented in this encounter Care Teams Slip Caster Relationship Specialty Start Date End Date Danilo-Selma Mccoy, LEAD TELLER STOCKROOM SELECTOR PCP - General 04/09/08 04/07/[address] [facility] [address] documented as of this encounter
--- OUTSIDE RECORDS SUMMARY | 2022-02-02 09:19 | XMS_ITS | Encounter Summary ---
:1965 Author Organization [facility] Address [address] [place] [address] Care Team Providers Name Role Phone Selma Good APRN MISSILE INSPECTOR PREFLIGHT Primary Care Provider [phone] Encounter Details Date Type Department Care Team Description 06/05/2012 Orders Only [facility] Eag an Type 2 diabetes, HbA1C goal < 7% (H); [address] Hyperlipidemia LDL goal <100 [place] [phone] Social History Tobacco Use Types Packs/Day Years [...] How often do you attend hinduism or caodaism Patient refused 08/08/2019 services? Do [...] 2 diabete s, Results for this QUANTITATIVE GRE INSTRUCTOR HbA1C goal < 7% (H) procedur e are in the results section. LIPID REFLEX TO DIRECT Routine 06/05/2012 7:48 AM Type 2 diabe shirley, Results for this LDL PANEL GRE INSTRUCTOR HbA1C goal < 7% (H) procedure are in Hyperlipidemia LDL the resul ts goal <100 section. HEMOGLOBIN A1C Routine 06/05/2012 7:48 AM Type 2 diabetes, Res ults for this GRE INSTRUCTOR HbA1C goal < 7% (H) procedur e are in the results section. COMPREHENSIVE Routine 06/05/2012 7:48 AM Type 2 diabetes, Resu lts for this METABOLIC PANEL GRE INSTRUCTOR HbA1C goal < 7% (H) proce dure are in the results section. documented in this encounter Results (ABNORMAL) Comprehensive metabolic panel (06/05/2012 7:48 AM GRE INSTRUCTOR) athologist Signature Sodium 141 133 - 144 [place] mmol/L [facility] Potassium 4.1 3.4 - 5.3 [place] mmol/L [facility] Chloride 103 94 - 109 [place] mmol/L [facility] Carbon Dioxide 22 20 - 32 [place] mmol/L [facility] Anion Gap 16 6 - 17 [place] mmol/L [facility] Glucose 123 (H) 60 - 99 [place] mg/dL [facility] Urea Nitrogen 16 5 - 24 [place] mg/dL [facility] Creatinine 0.75 0.52 - [facility] 1.04 mg/dL [facility] GFR Estimate 82 >60 [place] mL/min/1.7 [facility] m2 LAB GFR Estimate If >90 >60 [place] Black mL/min/1.7 [facility] m2 LAB Calcium 9.7 8.5 - 10.4 [place] mg/dL [facility] Bilirubin Total 0.6 0.2 - 1.3 [place] mg/dL [facility] Albumin 4.4 3.9 - 5.1 [place] g/dL [facility] Comment: Reference range changed on 02/10. Protein Total 7.5 6.8 - 8.8 g/dL [facility] Comment: As of 07, reference range reflects plasma specimen type. Alkaline Phosphatase 83 40 - 150 U/L [facility] ALT 28 0 - 50 U/L [facility] AST 19 0 - 45 U/L [facility] Specimen Anatomical Collection Method Collection Time Receive d Time (Source) Location / / Volume Laterality Blood specimen 06/05/2012 7:48 AM 012 7:53 (specimen) GRE INSTRUCTOR AM GRE INSTRUCTOR Selma Good APRN MISSILE INSPECTOR PREFLIGHT LAB - BLOOD ORDERABLES Performing Organization Address City/State/ZIP Code Phon e Number [facility] [address] [place] [address] [facility] Microalbumin quantitative, random urine (06/05/2012 7:48 AM GRE INSTRUCTOR) athologist Signature Creatinine 208 mg/dL [facility] Albumin Urine 13 mg/L [facility] mg/L [facility] Albumin Urine 6.25 0 - 25 [facility] mg/g Cr mg/g Cr CAMPUS LAB[facility] Specimen Anatomical Collection Method Collection Time Receive d Time (Source) Location / / Volume Laterality Urine specimen 06/05/2012 7:48 AM 012 7:53 (specimen) GRE INSTRUCTOR AM GRE INSTRUCTOR Selma Good APRN, CNP LAB - URINE ORDERABLES Performing Organization Address City/[facility]/ZIP Code Phon e Number [facility] [address] [place] [address] [facility] (ABNORMAL) Lipid panel reflex to direct LDL (06/05/2012 7:48 AM GRE INSTRUCTOR) athologist Signature Cholesterol 126 0 - 200 [facility] mg/dL CLINIC LAB Comment: LDL Cholesterol is the primary guide to therapy. The NCEP recommends further evaluation of: patients with cholesterol greater than 200 mg/dL if additional risk facto rs are present, cholesterol greater than 240 mg/dL, triglycerides greater than 1 50 mg/dL, or HDL less than 40 mg/dL. Triglycerides 84 0 - 150 mg/dL [facility] HDL Cholesterol 43 (L) 50 - 110 mg/dL [facility] LDL Cholesterol Calculated 66 0 - 129 mg/dL [facility] Comment: LDL Cholesterol is the primary guide to therapy: LDL-cholesterol goal in high risk patients is <100 mg/dL and in very high risk patients is <70 mg/dL. VLDL-Cholesterol 17 0 - 30 mg/dL [facility] Cholesterol/HDL Ratio 2.9 0.0 - 5.0 [facility] Specimen Anatomical Collection Method Collection Time Receive d Time (Source) Location / / Volume Laterality Blood specimen 06/05/2012 7:48 AM 012 7:53 (specimen) GRE INSTRUCTOR AM GRE INSTRUCTOR Selma Good APRN, CNP LAB - BLOOD ORDERABLES Performing Organization Address City/State/ZIP Code Phon e Number [facility] [address] [place] [address] [facility] Hemoglobin A1c (06/05/2012 7:48 AM GRE INSTRUCTOR) athologist Signature Hemoglobin A1C 5.8 4.3 - 6.0 [facility] % CLINIC LAB Specimen Anatomical Collection Method Collection Time Receive d Time (Source) Location / / Volume Laterality Blood specimen 06/05/2012 7:48 AM 012 7:53 (specimen) GRE INSTRUCTOR AM GRE INSTRUCTOR Selma Good APRN, CNP LAB - BLOOD ORDERABLES Performing Organization Address City/State/ZIP Code Phon e Number [place] [phone] [facility] [place] [address] [facility] documented in this encounter Visit Diagnoses Diagnosis Type 2 diabetes, HbA1c goal < 7% (H) Type II or unspecified type diabetes sukhdev litus without mention of complication, not stated as uncontrolled Hyperlipidemia LDL goal <100 Other and unspecified hyperlipidemia documented in this encounter Care Teams End Matcher Relationship Specialty Start Date End Date Selma Good APRN CNP PCP - General 04/09/08 04/07/15 [address] [facility] [place] [address] documented as of this encounter
--- OUTSIDE RECORDS SUMMARY | 2022-02-02 09:19 | XMS_ITS | Encounter Summary ---
:1965 Author Organization [facility] Address [address] [place] [address] Care Team Providers Name Role Phone Selma Good APRN WOOD BORING MACHINE OPERATOR Primary Care Provider [phone] Encounter Details Date Type Department Care Team Description 08/18/2012 Results Only [facility] Diego marshall MD [facility] [place] [address] [facility] [address] [place] [address] [place] [address] [phone] Social History Tobacco Use Types Packs/Day Years [...] to any clubs or organizations such as [place] 08/08/2019 lutheran groups, unions, fraternal or athletic [...] on filedocumented in this encounter Care Teams Building Performance Consultant Relationship Specialty Start Date End Date Danilo-Selma Mccoy, ENDOCRINOLOGIST WOOD BORING MACHINE OPERATOR PCP - General 04/09/08 04/07/[address] [address] [place], [place] [address] documented as of this encounter
--- OUTSIDE RECORDS SUMMARY | 2022-02-02 09:19 | XMS_ITS | Encounter Summary ---
:1965 Author Organization [facility] Address [address] [place] [address]. [place] [address] Care Team Providers Name Role Phone Selma Good APRN [facility] Primary Care Provider Reason for Referral Consultation - Closed Specialty Diagnoses / Procedures Referred By Contact Refer red To Contact Diagnoses Dizziness Selma Good [facility] SUPERVISOR AGENCY APPOINTMENTS [address] [place] [phone] [place] [id number] Referral ID Status Reason Start Date Expiration Date Visits Requ ested Visits Authorized [id number] Closed 05/30/2013 11/26/2013 1 1 RENTAL CLERK Reason for Visit Reason Comments Diabetes Encounter Details Date Type Department Care Team Description 05/30/2013 Office Visit [facility] Florentino, Type 2 diab etes, HbA1C goal < 7% (H) (Primary Dx); Pino Angeles APRN Screen for colon cancer; 1440 [facility] Screening for diabetic retinopathy; [place] [phone] [place] [address] Screening for diabetic perip heral neuropathy; [phone] [facility] Need for prophylactic vaccination and in oculation against influenza; [place] [address] Hyperlipidemia LDL goal <100; [phone] GERD (gastroeso phageal reflux disease); (Work) Hypertension goal BP (blood pressure) < 130/80; [phone] Fibromyalgia; (Fax) Migraine headac he; Obesity; Major [...] How often do you attend yazdanism or mu-ism Patient refused 08/08/2019 services? Do [...] Comments Blood Pressure 90/56 05/30/2013 1:02 PM BOAT RENTAL CLERK Pulse 68 05/30/2013 1:02 PM BOAT RENTAL CLERK Temperature 36.7 ??C (98.1 ??F) 05/30/2013 1:02 PM BOAT RENTAL CLERK Respiratory Rate 16 05/30/2013 1:02 PM BOAT RENTAL CLERK Oxygen Saturation 98% 05/30/2013 1:02 PM BOAT RENTAL CLERK Inhaled Oxygen Concentration - - Weight 67.9 kg (149 lb 11.2 oz) 05/30/2013 1:02 PM BOAT RENTAL CLERK Height 157.5 cm (5' 2) 05/30/2013 1:02 PM BOAT RENTAL CLERK Body Mass Index 27.38 05/30/2013 1:02 PM BOAT RENTAL CLERK documented in this encounter Patient Instructions Patient InstructionsSelma Good NP - 05/30/2013 1:27 PM BOAT RENTAL CLERK We'll check your labs to find explanation for the dizziness. If they are normal, I'd like you to schedule an appointment with ENT. [facility] [phone] In the mean time, try the nasal spray to see if it helps. RENTAL CLERK documented in this encounter Progress Notes Selma [...] / Panic / Manic symptoms: No PHQ-9 Andorran PHQ-9 Any Language ?? Amount of exercise [...] Disease) ??? Obesity ??? Family History of SC (Myocardial Infarction) ??? Cervical Pain ??? Insomnia [...] against influenza Comment: Plan: ADMIN VACCINE, FIRST [43515], C FLU VACCINE, 3 YRS +, IM (QUADRIVALENT NO PRESERVATIVES) 272.4 Hyperlipidemia LDL goal <100 Comment: Plan: simvastatin (ZOCOR) 20 MG tablet 530.81 GERD (gastroesophageal reflux disease) Comment: Plan: omeprazole (PRILOSEC) 20 MG capsule 401.9 Hypertension goal BP (blood pressure) < 130/80 Comment: Plan: lisinopril (PRINIVIL,ZESTRIL) 5 MG tablet 729.1 Fibromyalgia Comment: Plan: DEPRESSION ACTION PLAN (DAP) Order [[id number]], DULoxetine (CYMBALTA) 30 MG capsule 346.90 Migraine [...] with ENT. [facility] [phone] In the mean time, try the nasal spray to see if it helps. Selma Good NP, AXLE INSPECTOR [facility] RENTAL CLERK documented in this encounter Nursing Notes 05/30/2013 [...] Name Type Priority Associated Diagnoses [facility] Referral Routine Dizziness Orde red: 05/30/2013 documented as of this encounter Procedures Procedure Name Priority Date/Time Associated Diagnosis Comme nts ALBUMIN RANDOM URINE Routine 05/30/2013 1:50 PM Type 2 diabete s, Results for this QUANTITATIVE BOAT RENTAL CLERK HbA1C goal < 7% (H) procedur e are in the results section. VITAMIN D DEFICIENCY Routine 05/30/2013 1:49 PM Dizziness R esults for this SCREENING BOAT RENTAL CLERK procedure are i n the results section. TSH WITH FREE T4 Routine 05/30/2013 1:49 PM Dizziness Resul ts for this REFLEX BOAT RENTAL CLERK procedure are i n the results section. HEMOGLOBIN A1C Routine 05/30/2013 1:49 PM Type 2 diabetes, Res ults for this BOAT RENTAL CLERK HbA1C goal < 7% (H) procedur e are in the results section. CBC WITH PLATELETS Routine 05/30/2013 1:49 PM Dizziness Res ults for this BOAT RENTAL CLERK procedure are i n the results section. C FOOT EXAM Routine 05/30/2013 1:27 PM Screening for BOAT RENTAL CLERK diabetic peripheral neuropathy EYE EXAM Routine 05/30/2013 1:27 PM Screening for (SIMPLE-NONBILLABLE) BOAT RENTAL CLERK diabetic retinopathy documented in this encounter Results MICROALBUMIN QUANTITATIVE RANDOM URINE (05/30/2013 1:50 PM BOAT RENTAL CLERK) Component Value Ref Test Analysis Performed At Patholo gist Range Method Time Signature Creatinine 146 mg/dL [facility] Urine [facility] LABS Albumin Urine <5 mg/L [facility] mg/L Urine Microalbumin lowest re portable value has been changed from 2 mg/L to 5 [facility] mg/L due to a methodology change on September. CAMPUS LABS Albumin Urine Unable to 0 - 25 [facility] mg/g Cr calculate mg/g Cr [facility] Specimen Anatomical Collection Method Collection Time Receive d Time (Source) Location / / Volume Laterality Urine specimen 05/30/2013 1:50 PM 013 1:52 (specimen) BOAT RENTAL CLERK PM BOAT RENTAL CLERK Selma Good APRN EQUINE MANAGER LAB - URINE ORDERABLES Performing Organization Address City/State/ZIP Code Phon e Number [facility] [address] LABS (ABNORMAL) Vitamin D Deficiency (05/30/2013 1:49 PM BOAT RENTAL CLERK) athologist Signature Vitamin D 27 (L) 30 - 75 [facility] Deficiency ug/L [facility] LABS Comment: Season, race, dietary intake, and treatm ent affect the concentration of 40-ptytsdq-Ywhdvbq D. Values may decrea se during winter [...] questions, pl ease contact the laboratory at [phone]. Specimen Anatomical Collection Method Collection Time Receive d Time (Source) Location / / Volume Laterality Blood specimen 05/30/2013 1:49 PM 013 1:51 (specimen) BOAT RENTAL CLERK PM BOAT RENTAL CLERK Selma Good APRN EQUINE MANAGER LAB - BLOOD ORDERABLES Performing Organization Address City/State/ZIP Code Phon e Number [facility] [address] [place] [address] [facility] LABS CBC with platelets (05/30/2013 1:49 PM BOAT RENTAL CLERK) athologist Signature WBC 7.0 4.0 - 11.0 [...] specimen 05/30/2013 1:49 PM 013 1:51 (specimen) BOAT RENTAL CLERK PM BOAT RENTAL CLERK Selma Good APRN, CNP LAB - BLOOD ORDERABLES Performing Organization Address City/State/ZIP Code Phon e Number [facility] [address] [place] [address] TSH with free T4 reflex (05/30/2013 1:49 PM BOAT RENTAL CLERK) athologist Signature TSH 1.68 0.4 - 5.0 [facility] mU/L [place] Specimen Anatomical Collection Method Collection Time Receive d Time (Source) Location / / Volume Laterality Blood specimen 05/30/2013 1:49 PM 013 1:51 (specimen) BOAT RENTAL CLERK PM BOAT RENTAL CLERK Selma Good APRN, CNP LAB - BLOOD ORDERABLES Performing Organization Address City/State/ZIP Code Phon e Number [facility] [address] [place] [address] [facility] [address] [place], [place] [address] HEMOGLOBIN A1C (05/30/2013 1:49 PM BOAT RENTAL CLERK) P athologist Signature Hemoglobin A1C 5.6 4.3 - 6.0 [facility] [place] Specimen Anatomical Collection Method Collection Time Receive d Time (Source) Location / / Volume Laterality Blood specimen 05/30/2013 1:49 PM 013 1:51 (specimen) BOAT RENTAL CLERK PM BOAT RENTAL CLERK Selma Good APRN, CNP LAB - BLOOD ORDERABLES Performing Organization Address City/State/ZIP Code Phon e Number [facility] [address] [facility] [place] [address] documented in this encounter Visit Diagnoses Diagnosis [...] left documented in this encounter Care Teams Therapist Rrt Relationship Specialty Start Date End Date Selma Good APRN CNP PCP - General 04/09/08 04/07/15 3305 [facility] [place] [address] documented as of this encounter
--- OUTSIDE RECORDS SUMMARY | 2022-02-02 09:19 | XMS_ITS | Encounter Summary ---
:1965 Author Organization [facility] Address [address] [place] [address] Care Team Providers Name Role Phone Selma Good APRN WINDOW GLASS CUTTER OFF Primary Care Provider Reason for Visit Reason Comments Diabetes Encounter Details Date Type Department Care Team Description 10/27/2013 Office Visit [facility] Florentino, Type 2 diab etes, HbA1C goal < 7% (H) (Primary Dx); Pino Angeles APRN Fibromyalgia; [address] [facility] OME (otitis media with effusion), bilate [place] [address] [facility] [phone] [facility] [place] [address] Social History Tobacco [...] How often do you attend yarsanism or amish Patient refused 08/08/2019 services? Do [...] for follow up visit. Selma Good NP, DESIGN MAINTENANCE ENGINEER [facility] [place] documented in this encounter [...] Signature Hemoglobin A1C 6.0 4.3 - 6.0 [facility] Specimen Anatomical Collection Method Collection Time Receive d Time (Source) Location / / Volume Laterality Blood specimen 10/27/2013 8:57 AM 014 8:58 (specimen) CDT AM CDT Selma Good APRN WINDOW GLASS CUTTER OFF LAB - BLOOD ORDERABLES Performing Organization Address City/State/ZIP Code Phon e Number [facility] [address] [place] [address] (ABNORMAL) Lipid panel reflex to direct LDL (10/27/2013 8:57 AM CDT) athologist Signature Cholesterol 106 <200 mg/dL [facility] Comment: LDL Cholesterol is the primary guide to therapy. The NCEP recommends further evaluation of: patients with cholesterol greater than 200 mg/dL if additional risk facto rs are present, cholesterol greater than 240 mg/dL, triglycerides greater than 1 50 mg/dL, or HDL less than 40 mg/dL. Triglycerides 39 0 - 150 mg/dL [facility] HDL Cholesterol 29 (L) >50 mg/dL [facility] LDL Cholesterol Calculated 69 0 - 129 mg/dL [facility] Comment: LDL Cholesterol is the primary guide to therapy: LDL-cholesterol goal in high risk patients is <100 mg/dL and in very high risk patients is <70 mg/dL. VLDL-Cholesterol 8 0 - 30 mg/dL [facility] [place] Cholesterol/HDL Ratio 3.7 0.0 - 5.0 [facility] Specimen Anatomical Collection Method Collection Time Receive d Time (Source) Location / / Volume Laterality Blood specimen 10/27/2013 8:57 AM 014 8:58 (specimen) CDT AM CDT Selma Good APRN WINDOW GLASS CUTTER OFF LAB - BLOOD ORDERABLES Performing Organization Address City/State/ZIP Code Phon e Number [facility] [place] [address] [place] [address] (ABNORMAL) Comprehensive metabolic panel (10/27/2013 8:57 AM CDT) athologist Signature Sodium 143 133 - 144 [facility] mmol/L [facility] Potassium 3.8 3.4 - 5.3 [facility] mmol/L [facility] Chloride 107 94 - 109 [facility] mmol/L [facility] Carbon Dioxide 26 20 - 32 [facility] mmol/L [facility] Anion Gap 10 6 - 17 [facility] mmol/L [facility] Glucose 100 (H) 60 - 99 [facility] mg/dL [facility] Comment: Fasting specimen Urea Nitrogen 14 7 - 30 mg/dL [facility] Creatinine 0.64 0.52 - 1.04 mg/dL [facility] GFR Estimate >90 >60 mL/min/1.7m2 [facility] GFR Estimate If Black >90 >60 mL/min/1.7m2 [facility] [place] Calcium 8.9 8.5 - 10.4 mg/dL [facility] Bilirubin Total 0.4 0.2 - 1.3 mg/dL [facility] Albumin 3.4 (L) 3.9 - 5.1 g/dL [facility] Comment: Reference range changed on 02/10. Protein Total 6.5 (L) 6.8 - 8.8 g/dL [facility] Comment: As of 07, reference range reflects plasma specimen type. Alkaline Phosphatase 86 40 - 150 U/L [facility] ALT 24 0 - 50 U/L [facility] EA AL[facility] AST 20 0 - 45 U/L [facility] AL[facility] Specimen Anatomical Collection Method Collection Time Receive d Time (Source) Location / / Volume Laterality Blood specimen 10/27/2013 8:57 AM 014 8:58 (specimen) CDT AM CDT Selma Good APRN, CNP LAB - BLOOD ORDERABLES Performing Organization Address City/State/ZIP Code Phon e Number [facility] 1440 [facility] [place] [address] documented in this encounter Visit Diagnoses Diagnosis Type 2 diabetes, HbA1c goal < 7% (H) - P rimary Type II or unspecified type diabetes sukhdev litus without mention of complication, not stated as uncontrolled Fibromyalgia Mylagia and myositis, unspecified OME (otitis media with effusion), bilate ral documented in this encounter Care Teams Precinct Police Lieutenant Relationship Specialty Start Date End Date Selma Good APRN WINDOW GLASS CUTTER OFF PCP - General 04/09/08 04/07/15 [address] [facility] [place] [address] documented as of this encounter
--- OUTSIDE RECORDS SUMMARY | 2022-02-02 09:19 | XMS_ITS | Encounter Summary ---
:1965 Author Organization [facility] Address [address] [place] [address] Care Team Providers Name Role Phone Selma Good APRN AERIAL ERECTOR Primary Care Provider [phone] Reason for Visit Reason Onset Date Comments Refill Request 12/05/2012 metformin hcl 1000mg Encounter Details Date Type Department Care Team Description 12/05/2012 Refill [facility] Eag Selma Anthony Refill Request 1440 [employer] SEAN Angeles CNP (metformin hcl 1000mg) [place] [phone] [facility] [phone] [facility] [place] [address] (Wo rk) [...] How often do you attend restorationism or sikhism Patient refused 08/08/2019 services? Do [...] uncontrolled documented in this encounter Care Teams Cherry Sorter Relationship Specialty Start Date End Date Selma Good, ELECTRICAL CONTRACTOR AERIAL ERECTOR PCP - General 04/09/08 04/07/15 0[address] [facility] [address] [place], [place] [address] documented as of this encounter
--- OUTSIDE RECORDS SUMMARY | 2022-02-02 09:19 | XMS_ITS | Encounter Summary ---
:1965 Author Organization [facility] Address [address] [place] [address] Care Team Providers Name Role Phone Selma Good APRN RADIO EQUIPMENT REPAIRER Primary Care Provider [phone] Reason for Visit Reason Onset Date Comments Refill Request 05/05/2014 Accu-Chek multi Clix lancets Encounter Details Date Type Department Care Team Description 05/05/2014 Refill [facility] Eag Selma Anthony Refill Request 1440 [employer] [facility] SEAN Angeles CNP (Accu-Chek multi Clix [place] [phone] [place] [address] [facility]) [phone] [facility] [place] [address] (Wo rk) Social [...] How often do you attend presybeterian or baptism Patient refused 08/08/2019 services? Do you belong to any clubs or organizations such as No 08/08/2019 presybeterian groups, unions, fraEncision or athletic groups, or school groups? How [...] refilled per RN susy. Iain Barone RN ALL MACHINE REPAIRER documented in this encounter Plan of Treatment Not on filedocumented as of this encounter Visit Diagnoses Diagnosis Type 2 diabetes, HbA1c goal < 7% (H) - P rimary Type II or unspecified type diabetes sukhdev litus without mention of complication, not stated as uncontrolled documented in this encounter Care Teams Material Requirements Planning Manager Relationship Specialty Start Date End Date Danilo-Selma Mccoy, DIP LUBE OPERATOR RADIO EQUIPMENT REPAIRER PCP - General 04/09/08 04/07/15 6671 [facility] [place] [address] documented as of this encounter
--- OUTSIDE RECORDS SUMMARY | 2022-02-02 09:19 | XMS_ITS | Encounter Summary ---
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 Insurance changin g June 11, 2012 Encounter Details Date Type Department Care Team Description 05/29/2012 Office Visit [facility] Florentino Type 2 diab etes, HbA1C goal < 7% (H) (Primary Dx); Pino Angeles APRN Migraine headache; [address] [employer] [facility] Cervical pain; [place] [phone] 4868 [facility] Hypertension goal BP (blood pressure) < 130/80; [phone] [facility] Hyperlipidemia LDL goal <100; [place] [address] GERD (gastroesophageal reflux disease); [phone] Breast cancer s creening; (Work) Need for [...] How often do you attend spiritism or yarsani Patient refused 08/08/2019 services? Do you belong to any clubs or organizations such as No 08/08/2019 spiritism groups, [employer], fraAdility or athletic groups, or school groups? How [...] Comments Blood Pressure 90/61 05/29/2012 10:32 AM BATTALION CHIEF Pulse 73 05/29/2012 10:32 AM BATTALION CHIEF Temperature 37 ??C (98.6 ??F) 05/29/2012 10:32 AM BATTALION CHIEF Respiratory Rate - - Oxygen Saturation - - Inhaled Oxygen Concentration - - Weight 73.9 kg (163 lb) 05/29/2012 10:32 AM BATTALION CHIEF Height 157.5 cm (5' 2) 05/29/2012 10:32 AM BATTALION CHIEF Body Mass Index 29.81 05/29/2012 10:32 AM BATTALION CHIEF documented in this encounter Patient Instructions Patient InstructionsSelma Good NP - 05/29/2012 11:08 AM BATTALION CHIEF Schedule a lab only fasting appointment within [...] that could help with mood and pain. ALION CHIEF documented in this encounter Progress Notes Selma [...] list, Allergies, and Medical/Social/Surgical histories reviewed in [facility] andupdated as appropriate. OBJECTIVE: Temp(Src) 98.6 [...] that could help with mood and pain. 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 Insurance changing 2012 Initial BP 90/61 Pulse [...] BP completed using cuff size: regular Beba Rievra MA documented in this encounter Plan of Treatment Not on filedocumented as of this encounter Procedures Procedure Name Priority Date/Time Associated Diagnosis Comme nts MIGRAINE QUESTIONNAIRE Routine 05/28/2012 10:49 AM BATTALION CHIEF Migrain e headache documented in this encounter [...] influenza documented in this encounter Care Teams Od Grinder Operator Relationship Specialty Start Date End Date Danilo-Selma Mccoy, ENGINEER INTERNSHIP ENTRY LEVEL AUTOMOTIVE TECHNICIAN PCP - General 04/09/08 04/07/15 2916 [facility] [place] [address] documented as of this encounter
--- OUTSIDE RECORDS SUMMARY | 2022-02-02 09:19 | XMS_ITS | Encounter Summary ---
:1965 Author Organization [facility] Address [address] [place] [address] Care Team Providers Name Role Phone Selma Good APRN [facility] Primary Care Provider [phone] Reason for Visit Reason Comments Depression Encounter Details Date Type Department Care Team Description 04/29/2014 Office Visit [facility] Florentino, Anxiety (Pr imary Dx); Pino Angeles APRN Insomnia; [address] [employer] [address] [facility] Major depressive disorder, recurrent (H) ; [place] [phone] 3305 [facility] Need for prophylactic vaccin ation and inoculation against influenza; [phone] [facility] Need for prophylactic vaccination agains t Streptococcus pneumoniae (pneumococcus); [place] [address] Type 2 diabetes, HbA1C goal < 7% (H); [phone] Hypertension go al BP (blood pressure) < [...] Comments Blood Pressure 86/54 04/29/2014 1:55 PM FUNDING SPECIALIST Pulse 76 04/29/2014 1:55 PM FUNDING SPECIALIST Temperature 35.4 ??C (95.7 ??F) 04/29/2014 1:55 PM FUNDING SPECIALIST Respiratory Rate 16 04/29/2014 1:55 PM FUNDING SPECIALIST Oxygen Saturation - - Inhaled Oxygen Concentration - - Weight 67.9 kg (149 lb 9.6 oz) 04/29/2014 1:55 PM FUNDING SPECIALIST Height - - Body Mass Index 27.36 10/27/2013 8:53 AM CDT documented in this encounter Patient Instructions Patient InstructionsSelma Good NP - 04/29/2014 2:26 PM FUNDING SPECIALIST STOP the lisinopril AND the simvastatin. Schedule [...] discussed possible side effects to this medication. ING SPECIALIST documented in this encounter Progress Notes Selma [...] (QUADRIVALENT W/PRESERVATIVES) - Seasonal Injectionable Immunization Administration [75877] 5. Need for prophylactic vaccination against Streptococcus [...] effects to this medication. Selma Good NP [facility] Injectable Influenza Immunization [...] the person to be vaccinated ever had Guillain-Greer syndrome? No Form completed by self Form reviewed by Charlotte Mark CMA([facility]) ING SPECIALIST documented in this encounter Nursing Notes Charlotte [...] completed using cuff size: regular Charlotte Mark CMA([facility]) ING SPECIALIST documented in this encounter Plan of [...] hyperlipidemia documented in this encounter Care Teams Hyperbaric Nurse Relationship Specialty Start Date End Date Danilo-Selma Mccoy, VISUAL PRESENTATION MANAGER STOCK RECEIVER PCP - General 04/09/08 04/07/15 9594 [facility] [place] [address] documented as of this encounter
--- OUTSIDE RECORDS SUMMARY | 2022-02-02 09:19 | XMS_ITS | Encounter Summary ---
:1965 Author Organization [facility] Address [address] [place] [address] Care Team Providers Name Role Phone Selma Good APRN ORE SMELTER Primary Care Provider [phone] Encounter Details Date Type Department Care Team Description 08/25/2013 Orders Only [facility] Eag an Screen for colon cancer [address] [place] [address] Social History Tobacco Use Types Packs/Day [...] How often do you attend zoroastrianism or orthodox Patient refused 08/08/2019 services? Do [...] logist Time Signature Occult Blood Negative NEG [facility] Scn [facility] LABS Specimen Anatomical Collection Method Collection Time Receive d Time (Source) Location / / Volume Laterality Stool specimen 08/21/2013 9:00 AM 014 (specimen) CDT 10:41 AM CDT Selma Good APRN ORE SMELTER LAB - STOOLS ORDERABLES Performing Organization Address City/State/ZIP Code Phon e Number [facility] [address] [place], [place] [address] [place] [address] LABS documented in this encounter Visit Diagnoses Diagnosis Screen for colon cancer Special screening for malignant neoplasm s, colon documented in this encounter Care Teams Invas Tech Relationship Specialty Start Date End Date Danilo-Selma Mccoy, METAL CASTER ORE SMELTER PCP - General 04/09/08 04/07/[address] [facility] [address] [place], [place] [address] documented as of this encounter
--- OUTSIDE RECORDS SUMMARY | 2022-02-02 09:19 | XMS_ITS | Encounter Summary ---
:1965 Author Organization [facility] Address [address] [place] [address] Care Team Providers Name Role Phone Selma Good APRN INFRASTRUCTURE DEVELOPER Primary Care Provider [phone] Reason for Visit Reason Onset Date Comments Panel Management 07/07/2013 Encounter Details Date Type Department Care Team Description 07/07/2013 Telephone [facility] Selma Hodges Panel Management 1440 Screamin Daily Deals [facility] J, SEAN INFRASTRUCTURE DEVELOPER [place] [phone] [facility]3 [facility] [phone] [facility] [place] [id number] (Wo rk) [...] How often do you attend restorationism or spiritism Patient refused 08/08/2019 services? Do [...] in one month if FIT not recd. ISHER AND BUMPER Telephone Encounter - Charlotte Mark - 07/07/2013 4:54 PM CST Panel Management Review Date of last visit with a [facility] provider: KATHY on 05-30-13. Date of next visit with a [facility] provider: None. Problem List Patient Active Problem List Diagnosis ??? Migraine headache ??? GERD (Gastroesophageal Reflux Disease) ??? Obesity ??? Family History of MS (Myocardial Infarction) ??? Cervical Pain ??? Insomnia [...] fasting or not fasting. Charlotte Mark CMA(AAMA) ISHER AND BUMPER documented in this encounter Plan of Treatment Not on filedocumented as of this encounter Visit Diagnoses Diagnosis Screening for malignant neoplasm of the rectum - Primary documented in this encounter Care Teams Cook Helper Dessert Relationship Specialty Start Date End Date Selma Good APRN INFRASTRUCTURE DEVELOPER PCP - General 04/09/08 04/07/15 2435 [facility] [place] [address] documented as of this encounter
--- OUTSIDE RECORDS SUMMARY | 2022-02-02 09:19 | XMS_ITS | Encounter Summary ---
:1965 Author Organization [place] Address [address] [place] [address] Care Team Providers Name Role Phone Selma Good APRN VIDEO CONTROL ENGINEER Primary Care Provider [phone] Encounter Details Date Type Department Care Team Description 12/06/2012 Orders Only [facility] Eag an Type 2 diabetes, HbA1C [...] athologist Signature TSH 2.01 0.4 - 5.0 [facility] mU/L CLINIC LAB Specimen Anatomical Collection Method Collection Time Receive d Time (Source) Location / / Volume Laterality Blood specimen 12/06/2012 9:14 AM 013 9:15 (specimen) CDT AM CDT Selma Good APRN VIDEO CONTROL ENGINEER LAB - BLOOD ORDERABLES Performing Organization Address City/State/ZIP Code Phon e Number [facility] [address] [place] [address] [facility] [address] [place] [address] (ABNORMAL) Lipid Profile with reflex to direct LDL (12/06/2012 9:14 AM CDT) athologist Signature Cholesterol 128 0 - 200 [place] mg/dL MED CTR Comment: LDL Cholesterol is the primary guide to therapy. The NCEP recommends further evaluation of: patients with cholesterol greater than 200 mg/dL if additional risk facto rs are present, cholesterol greater than 240 mg/dL, triglycerides greater than 1 50 mg/dL, or HDL less than 40 mg/dL. Triglycerides 39 0 - 150 mg/dL [facility] Comment: Fasting specimen HDL Cholesterol 43 (L) 50 - 110 mg/dL [facility] VE MED CTR LDL Cholesterol Calculated 77 0 - 129 mg/dL [facility] Comment: LDL Cholesterol is the primary guide to therapy: LDL-cholesterol goal in high risk patients is <100 mg/dL and in very high risk patients is <70 mg/dL. VLDL-Cholesterol 8 0 - 30 mg/dL [facility] Cholesterol/HDL Ratio 3.0 0.0 - 5.[address] [facility] Specimen Anatomical Collection Method Collection Time Receive d Time (Source) Location / / Volume Laterality Blood specimen 12/06/2012 9:14 AM 013 9:15 (specimen) CDT AM CDT Selma Good APRN VIDEO CONTROL ENGINEER LAB - BLOOD ORDERABLES Performing Organization Address City/State/ZIP Code Phon e Number [facility] [address] [place] [address] [facility] [address] [place] [address] (ABNORMAL) Comprehensive metabolic panel (BMP + Alb, Alk Phos, ALT, AST, Total. Bili, TP) (12/06/2012 9:14 AM CDT) athologist Signature Sodium 143 133 - 144 [place] mmol/L [facility] Potassium 4.5 3.4 - 5.3 [place] mmol/L [facility] Chloride 108 94 - 109 [place] mmol/L [facility] Carbon Dioxide 24 20 - 32 [place] mmol/L [facility] Anion Gap 12 6 - 17 [place] mmol/L [facility] Glucose 103 (H) 60 - 99 [place] mg/dL [facility] Comment: Fasting specimen Urea Nitrogen 14 5 - 24 mg/dL [facility] Creatinine 0.59 0.52 - 1.04 mg/dL [facility] GFR Estimate >90 >60 mL/min/1.7m2 [facility] GFR Estimate If Black >90 >60 mL/min/1.7m2 [facility] Calcium 8.6 8.5 - 10.4 mg/dL [facility] Bilirubin Total 0.2 0.2 - 1.3 mg/dL [facility] Albumin 3.7 (L) 3.9 - 5.1 g/dL [facility] Protein Total 6.9 6.8 - 8.8 g/dL [facility] Alkaline Phosphatase 76 40 - 150 U/L [facility] ALT 20 0 - 50 U/L [facility] AST 17 0 - 45 U/L [facility] Specimen Anatomical Collection Method Collection Time Receive d Time (Source) Location / / Volume Laterality Blood specimen 12/06/2012 9:14 AM 06/28/2 013 9:15 (specimen) CDT AM CDT Selma Good APRN, CNP LAB - BLOOD ORDERABLES Performing Organization Address City/[facility] Phon e Number [facility] [address] [place] [address] [facility] [address] [place] [address] Hemoglobin A1c (12/06/2012 8:53 AM CDT) P athologist Signature Hemoglobin A1C 5.8 4.3 - 6.0 [facility] LAB Specimen Anatomical Collection Method Collection Time Receive d Time (Source) Location / / Volume Laterality Blood specimen 12/06/2012 8:53 AM 013 8:54 (specimen) CDT AM CDT Selma Good APRN, CNP LAB - BLOOD ORDERABLES Performing Organization Address [facility] Code Phon e Number [facility] [address] [place] [phone] [facility] [address] [place] [address] documented in this encounter Visit Diagnoses Diagnosis Type 2 diabetes, HbA1c goal < 7% (H) - P rimary Type II or unspecified type diabetes sukhdev litus without mention of complication, not stated as uncontrolled documented in this encounter Care Teams Plastic Products Sales Representative Relationship Specialty Start Date End Date Selma Good APRN CNP PCP - General 04/09/08 04/07/15 [facility] [place] [address] documented as of this encounter
--- OUTSIDE RECORDS SUMMARY | 2022-02-02 09:19 | XMS_ITS | Encounter Summary ---
:1965 Author Organization [facility] Address [address] [place] [address] Care Team Providers Name Role Phone Selma Good APRN, CNP Primary Care Provider [phone] Reason for Visit Reason Onset Date Comments Refill Request 04/23/2014 CITALOPRAM 20MG Encounter Details Date Type Department Care Team Description 04/23/2014 Refill [facility] Selma Hodges Refill Request 1440 Tailored Fit SEAN Angeles CNP (CITALOPRAM 20MG) [place] [phone] [place] [address] [facility] [place] [id number] (Wo rk) [...] How often do you attend nondenominational or jain Patient refused 08/08/2019 services? Do [...] Keyona Salcido RN - 04/24/2014 12:39 PM OFFICE MANAGER Spoke to pharmacist- pt still has 30 left to fill. Removing med request. Keyona Salcido RN CE MANAGER Telephone Encounter - Day Greene RN - [...] 1 Suicidal thoughts 1 TOTAL SCORE-----> 10 CE MANAGER Telephone Encounter - Marisa Matthew - 04/23/2014 1:10 PM CST Refill request for: CITALOPRAM 20 mg Last prescribed by provider: Date: 03/25/2014 Quantity 120 w/ 0 refills Last filled through pharmacy: Date: Pharmacy Comments: LUZ ELENA Matthew RT(R) CE MANAGER documented in this encounter Plan of Treatment Not on filedocumented as of this encounter Visit Diagnoses Diagnosis Major depressive disorder, recurrent (H) Major depressive disorder, recurrent epi sode, unspecified documented in this encounter Care Teams Tenterer Relationship Specialty Start Date End Date Selma Good APRN MANAGER TELEMETRY PCP - General 04/09/08 04/07/[address] [facility] [address] [place], [place] [address] documented as of this encounter
--- OUTSIDE RECORDS SUMMARY | 2022-02-02 09:19 | XMS_ITS | Encounter Summary ---
:1965 Author Organization [facility] Address [address] [place] [address] Care Team Providers Name Role Phone Selma Good APRN DIGITAL IMAGING TECHNICIAN Primary Care Provider [phone] Reason for Visit Reason Onset Date Comments Refill Request 03/14/2013 test strips Encounter Details Date Type Department Care Team Description 03/14/2013 Refill [facility] Eag Selma Anthony Refill Request (test 1440 [address] J, UNDERBASTER DIGITAL IMAGING TECHNICIAN strips) [place] [phone] 4025 [facility] [phone] [facility] [place] [id number] (Wo rk) Social History [...] How often do you attend methodist or oriental orthodox Patient refused 08/08/2019 services? [...] uncontrolled documented in this encounter Care Teams Agriculture Science Teacher Relationship Specialty Start Date End Date Danilo-Selma Mccoy, UNDERBASTER DIGITAL IMAGING TECHNICIAN PCP - General 04/09/08 04/07/15 9282 [facility] [place] [address] documented as of this encounter
--- OUTSIDE RECORDS SUMMARY | 2022-02-02 09:19 | XMS_ITS | Encounter Summary ---
:1965 Author Organization [facility] Address [address] [place] [address] Care Team Providers Name Role Phone Selma Good APRN ENGLISH DRAWER Primary Care Provider [phone] Reason for Visit Reason Onset Date Comments Refill Request 05/19/[address] 30 MG Encounter Details Date Type Department Care Team Description 05/19/2014 Refill [facility] Selma Hodges Refill Request 1440 Malhar JSEAN CNP (DULOXETINE HCL DR 30MG) [place] [address] [facility] [place] [facility] [phone] [facility] [place] [phone] (Wo rk) Social [...] Kallie Golden RN - 05/26/2014 9:41 AM PROSTHODONTIST Addended by: KALLIE GOLDEN on: 05/26/2014 09:41 AM Modules accepted: Orders THODONTIST Telephone Encounter - Kallie Golden RN - [...] 03/25/14 86/66 12/17/13 90/50 ALT 24 10/27/2013 THODONTIST Telephone Encounter - Mignon Beatty RN - 05/19/2014 3:33 PM CST Filled 04/28/14 for 90 days with refills Mignon Beatty RN THODONTIST Telephone Encounter - Eri Middleton - 05/19/2014 8:38 AM CST Refill request for: DULOXETINE 30 mg Last prescribed by provider: Date: 10/27/2013 Quantity 180 w/ 1 refills Last filled through pharmacy: Date: 02/19/2014 Pharmacy Comments: LUZ ELENA Middleton RT(R) THODONTIST documented in this encounter Plan of Treatment Not on filedocumented as of this encounter Visit Diagnoses Diagnosis Fibromyalgia Mylagia and myositis, unspecified documented in this encounter Care Teams Licensed Loan Officer Relationship Specialty Start Date End Date Danilo-Selma Mccoy, ROAD ROLLER OPERATOR HOT MIX ENGLISH DRAWER PCP - General 04/09/08 04/07/[address] [facility] [address] [place], [place] [address] documented as of this encounter
--- OUTSIDE RECORDS SUMMARY | 2022-02-02 09:19 | XMS_ITS | Encounter Summary ---
:1965 Author Organization [facility] Address [address] [place] [address] Care Team Providers Name Role Phone Selma Good APRN [facility] Primary Care Provider [phone] Encounter Details Date Type Department Care Team Description 05/27/2013 Radiant Appointment [facility] Lexii Good cancer Pino Angeles, COPER HAND screening [address] [facility] ,[address] [place], [place], [place] [phone] Social History Tobacco Use Types Packs/Day [...] How often do you attend islam or confucianism Patient refused 08/08/2019 services? Do [...] Procedure Name Priority Date/Time Associated Diagnosis Comme [facility] SCREENING Routine 05/27/2013 1:54 PM Breast cancer Results for this DIGITAL BILATERAL MIXING MACHINE TENDER CORK GASKET screening procedure are in the results section. documented in this encounter Results Mammo Screening digital (bilat) (05/27/2013 1:54 PM MIXING MACHINE TENDER CORK GASKET) Anatomical Region Laterality Modality Breast Bilateral Mammography Specimen (Source) Anatomical Location Collection Method / Collectio n Time Received Time / Laterality Volume Impressions 05/28/2013 9:50 AM MIXING MACHINE TENDER CORK GASKET IMPRESSION: BI-RADS CATEGORY: 1 - ??NEGATIVE. RECOMMENDED FOLLOW-UP: Annual Mammograph y. Exam results letter mailed to patient. JOSE DAO MD Narrative 05/28/2013 9:50 AM MIXING MACHINE TENDER CORK GASKET SCREENING MAMMOGRAM, BILATERAL, DIGITAL w/CAD - 05/27/2013 [...] unspecified documented in this encounter Care Teams Stock Feeder Relationship Specialty Start Date End Date Selma Good APRN GLASS CLEANER PCP - General 04/09/08 04/07/[address] [facility] [address] [place], [place] [address] documented as of this encounter
--- OUTSIDE RECORDS SUMMARY | 2022-02-02 09:20 | XMS_ITS | Encounter Summary ---
:1965 Author Organization [facility] Address [address] [place] [address] Care Team Providers Name Role Phone Selma Good APRN PETROLEUM REFINING FIRER Primary Care Provider [phone] Reason for Visit Reason Comments RECHECK cellulitis on left leg,state s doesnt notice any difference,c/o pain,dryness and burning sen sation Letter for School/Work Encounter Details Date Type Department Care Team Description 08/29/2010 Office Visit [facility] Vanda Guerrero Cellulit is of leg Pino Toribio MD (Primary Dx) [address] [place] [address] [facility] [phone] [place] [id number] (Wo rk) Social History [...] How often do you attend samaritan or latter day Patient refused 08/08/2019 services? [...] recheck of cellulitis. Seen in clinic by Aedle Good 08/26 and given augmentin. Cellulitis started [...] ??? Obesity 278.00J ??? Family History of MD (Myocardial Infarction) V17.3Y ??? Cervical Pain 723.1L [...] 08/29/2010 2:15 PM CDT >> ADALBERTO FULTON [facility] Aug 29, 2010 2:20 PM Patient presents [...] ot documented in this encounter Care Teams Communications Electrician Supervisor Relationship Specialty Start Date End Date Selma Good, PHYSICAL AERODYNAMICIST PETROLEUM REFINING FIRER PCP - General 04/09/08 04/07/[address] [place], [place] [address] documented as of this encounter
--- OUTSIDE RECORDS SUMMARY | 2022-02-02 09:20 | XMS_ITS | Encounter Summary ---
:1965 Author Organization [facility] Address [address] [place] [address] Care Team Providers Name Role Phone Selma Good APRN PRESS DEPARTMENT MANAGER Primary Care Provider [phone] Reason for Visit Reason Onset Date Comments Refill Request 04/01/2012 topamax Encounter Details Date Type Department Care Team Description 04/01/2012 Refill [facility] Eag Selma Anthony Refill Request (topamax) [address] J, CREDIT SUPPORT SPECIALIST PRESS DEPARTMENT MANAGER [place] [phone] [facility]9 [facility] [phone] [facility] [place] [address] (Wo rk) [...] How often do you attend christian or worship Patient refused 08/08/2019 services? Do [...] migrainosus documented in this encounter Care Teams Adjunct Lecturer Relationship Specialty Start Date End Date Selma Good, CREDIT SUPPORT SPECIALIST PRESS DEPARTMENT MANAGER PCP - General 04/09/08 04/07/[address] [facility] [address] [place], [place] [address] documented as of this encounter
--- OUTSIDE RECORDS SUMMARY | 2022-02-02 09:20 | XMS_ITS | Encounter Summary ---
:1965 Author Organization [facility] Address [address] [place] [address] Care Team Providers Name Role Phone Selma Good APRN DEBIT AGENT Primary Care Provider [phone] Encounter Details Date Type Department Care Team Description 04/02/2010 Orders Only [facility] Eag an Type 2 diabetes, HbA1C goal < 7% (H); [address] Hyperlipidemia LDL goal <100 ; [place] [address] Hypertension goal BP (blood pressure) < 130/80; [phone] Unspecified epi lepsy without mention of intractable [...] How often do you attend restoration or mosque Patient refused 08/08/2019 services? Do [...] CDT) P athologist Signature Creatinine 207 mg/dL [facility] Urine [facility]AMPUS LABS Albumin Urine 11 mg/L [facility] mg/L [place] [facility] Albumin Urine 5.31 0 - 20 [facility] mg/g Cr mg/g Cr CAMPUS LABS Specimen Anatomical Collection Method Collection Time Receive d Time (Source) Location / / Volume Laterality Urine specimen 04/02/2010 8:36 AM 010 8:41 (specimen) CDT AM CDT Selma Good APRN DEBIT AGENT LAB - URINE ORDERABLES Performing Organization Address City/State/ZIP Code Phon e Number [facility] [address] [place] [address] [facility] (ABNORMAL) Vitamin D deficiency screening (04/02/2010 8:36 AM CDT) Component Value Ref Test Analysis Performed At Patholo gist Range Method Time Signature 25 [place] Vit D2 <5 ug/L [facility]S 25 [place] Vit D3 25 ug/L [facility] 25 [place] Vit D <30 30 - 75 [facility] total Season, race, dietary intake, and treatm ent affect the concentration of ug/L [place] 87-mhpznym-Hqdgrph D. Values may decrease during gordon er [...] Code Phon e Number [facility] [address] [place] [address] [facility] (ABNORMAL) Comprehensive metabolic panel (04/02/2010 8:16 AM CDT) P athologist Signature Sodium 143 133 - 144 [place] mmol/L [facility] Potassium 4.3 3.4 - 5.3 [place] mmol/L [facility] Chloride 105 94 - 109 [place] mmol/L [facility] Carbon Dioxide 27 20 - 32 [place] mmol/L [facility] Anion Gap 10 6 - 17 [place] mmol/L [facility] Glucose 134 (H) 60 - 99 [place] mg/dL [facility] Urea Nitrogen 10 5 - 24 [place] mg/dL [facility] Creatinine 0.74 0.52 - [place] 1.04 mg/dL [facility] Comment: New IDMS-traceable calibration beginning 10/10/07 GFR Estimate 84 >60 mL/min/1.7m2 [facility] AGAN [facility] GFR Estimate If Black >90 >60 mL/min/1.7m2 [facility] Calcium 9.2 8.5 - 10.4 mg/dL [facility] Bilirubin Total 0.5 0.2 - 1.3 mg/dL [facility] Albumin 4.1 3.9 - 5.1 g/dL [facility] Comment: Reference range changed on 02/10. Protein Total 7.2 6.8 - 8.8 g/dL [facility] Comment: As of 07, reference range reflects plasma specimen type. Alkaline Phosphatase 119 40 - 150 U/L [facility] ALT 22 0 - 50 U/L [facility] CLIN IC LAB AST 20 0 - 45 U/L [facility] CLIN IC LAB Specimen Anatomical Collection Method Collection Time Receive d Time (Source) Location / / Volume Laterality Blood specimen 04/02/2010 8:16 AM 010 8:21 (specimen) CDT AM CDT Selma Good APRN DEBIT AGENT LAB - BLOOD ORDERABLES Performing Organization Address City/State/ZIP Code Phon e Number [facility] [address] [place] [address] [facility] (ABNORMAL) Lipid panel reflex to direct LDL (04/02/2010 8:16 AM CDT) athologist Signature Cholesterol 130 0 - 200 [facility] mg/dL CLINIC LAB Comment: LDL Cholesterol is the primary guide to therapy. The NCEP recommends further evaluation of: patients with cholesterol <200 mg/dL if additional risk factors are present, cholesterol >240 mg/dL, triglycerides >150 mg/dL, or HDL <40 mg/dL. Triglycerides 74 0 - 150 mg/dL [facility] LAB HDL Cholesterol 37 (L) 50 - 110 mg/dL [facility] LDL Cholesterol Calculated 78 0 - 129 mg/dL [facility] Comment: LDL Cholesterol is the primary guide to therapy: LDL-cholesterol goal in high risk patients is <100 mg/dL and in very high risk patients is <70 mg/dL. VLDL-Cholesterol 15 0 - 30 mg/dL [facility] LAB Cholesterol/HDL Ratio 3.5 0.0 - 5.0 [facility] LAB Specimen Anatomical Collection Method Collection Time Receive d Time (Source) Location / / Volume Laterality Blood specimen 04/02/2010 8:16 AM 8:21 (specimen) CDT AM CDT Selma Good APRN, CNP LAB - BLOOD ORDERABLES Performing Organization Address City/[facility]/ZIP Code Phon e Number [facility] [address] [place] [address] [phone] [facility] LAB (ABNORMAL) Hemoglobin A1c (04/02/2010 8:16 AM CDT) athologist Signature Hemoglobin A1C 6.7 (H) 4.3 - 6.0 [facility] Specimen Anatomical Collection Method Collection Time Receive d Time (Source) Location / / Volume Laterality Blood specimen 04/02/2010 8:16 AM 8:21 (specimen) CDT AM CDT Selma Good APRN, CNP LAB - BLOOD ORDERABLES Performing Organization Address City/[facility]/ZIP Code Phon e Number [facility] [address] [place] [address] [facility] documented in this encounter [...] epilepsy documented in this encounter Care Teams Custody Officer Relationship Specialty Start Date End Date Danilo-Selma Mccoy, MARKETING BUDGET ANALYST DEBIT AGENT PCP - General 04/09/08 04/07/[address] [facility] [address] [place], [place] [address] documented as of this encounter
--- OUTSIDE RECORDS SUMMARY | 2022-02-02 09:20 | XMS_ITS | Encounter Summary ---
:1965 Author Organization [facility] Address [address] [place] [address] Care Team Providers Name Role Phone Selma oGod APRN SELF PROPELLED MINING MACHINE OPERATOR Primary Care Provider [phone] Reason for Visit Reason Comments Hospital F/U Headache would like med Pain Overall whole body pain Encounter Details Date Type Department Care Team Description 11/15/2011 Office Visit [facility] Florentino, LBP (low ba ck pain) (Primary Dx); Pino Angeles APRN Migraine; [address] SELF PROPELLED MINING MACHINE OPERATOR Cervical pain [place] [phone] [facility] [phone] [facility] [place] [phone] Social History Tobacco Use Types Packs/Day Years [...] How often do you attend buddhist or episcopal Patient refused 08/08/2019 services? Do [...] Cervicalgia documented in this encounter Care Teams Power Washer Relationship Specialty Start Date End Date Selma Good, FARM MANAGEMENT SUPERVISOR SELF PROPELLED MINING MACHINE OPERATOR PCP - General 04/09/08 04/07/15 [address] [facility] [place] [address] documented as of this encounter
--- OUTSIDE RECORDS SUMMARY | 2022-02-02 09:20 | XMS_ITS | Encounter Summary ---
:1965 Author Organization [place] Address [facility] [place] [address] Care Team Providers Name Role Phone Selma Angelo APRN [facility] Primary Care Provider [phone] Reason for Referral Referral not Required - Closed Specialty Diagnoses / Procedures Referred By Contact Refer red To Contact Diagnoses External hemorrhoids with other complication Diego Nelson MD [facility] [address] [facility] [address] [place] [address] [place] [phone] Fax: Referral ID Status Reason Start Date Expiration Date Visits Requ ested Visits Authorized [id number] Closed 11/15/2011 05/13/2012 1 1 Reason for Visit Reason Comments Procedure EMB - follow-up regarding va ginal itching - nystatin cream did help with sx's - questions concerning area near retum - possible removal of a piece of skin near the rectum Encounter Details Date Type Department Care Team Description 11/15/2011 Office Visit [facility] Diego Nelson Menorrh agia (Primary Dx); Pino Alejandro MD External hemorrhoids with other complica tion [address] [email or web address] [address] [facility] [place] [address] [facility] [phone] [place] [address] Social History Tobacco Use [...] How often do you attend restorationism or jew Patient refused 08/08/2019 services? Do [...] regular Nurse assisted visit. Kallie Blanco MA. documented in this encounter Plan [...] Component Value Ref Test Analysis Performed At [facility] Method Time Signature Copath Report Patient Name: PADMINI CHOI MR#: [id number] Specimen #: [id number] Collected: 11/15/2011 Received: 11/16/2011 Reported: 11/17/2011 14:07 [...] is performed. SA/sg /11-17-11 TESTING LAB LOCATION: [address] ??[phone] COLLECTION SITE: Client: [facility] Location: EAOB (R) Specimen Anatomical Collection [...] tion documented in this encounter Care Teams Tufting Creeler Relationship Specialty Start Date End Date Danilo-Selma Mccoy, CRYPTOLOGICAL TECHNICIAN DEMAND EQUIPMENT REPAIRER PCP - General 04/09/08 04/07/[address] [place] [address] documented as of this encounter
--- OUTSIDE RECORDS SUMMARY | 2022-02-02 09:20 | XMS_ITS | Encounter Summary ---
:1965 Author Organization [place] Address [address] [place] [address] Care Team Providers Name Role Phone Selma Good APRN STREET CLEANER Primary Care Provider [phone] Reason for Visit Reason Comments Consult chronic vaginal itching x's 9 months - tried a steroid cream that made sx's worse - menstral cycle also seems to make sx's worse Encounter Details Date Type Department Care Team Description 10/18/2011 Office Visit [facility] Fermin Nelson Vulvar dystrophy (Primary Dx); Pino Alejandro MD Vaginal itching; [address] [place] [address] Menorrhagia [place] [address] [facility] [phone] [place] [id number] Social History Tobacco Use Types Packs/Day Years [...] How often do you attend faith or jain Patient refused 08/08/2019 services? Do [...] Body Mass Index 31.46 07/27/2011 9:40 AM ROTOFORMER BACKTENDER documented in this encounter Progress Notes Kallie [...] need further evaluation or therapy pending ultrasound Klalie Mora - 10/18/2011 10:04 AM CDT Chief [...] Component Value Ref Test Analysis Performed At [facility] Method Time Signature Copath Report Patient Name: MEGAN CHOI MR#: [id number] Specimen #: [id number] Collected: 10/18/2011 Received: 10/19/2011 Reported: 10/23/2011 07:01 [...] is required. PATRICIO/ritu DT/5-11-12 TESTING LAB LOCATION: [facility] [address] [place], [place] ??[phone] COLLECTION SITE: Client: [facility] Location: EAOB (R) Specimen Anatomical Collection Method Collection Time Receive d Time (Source) Location / / Volume Laterality 10/18/2011 1:42 PM 2 7:49 CDT AM CDT Fermin Nelson MD LAB - BEAKER AP Performing Organization Address City/[facility]/ZIP Code Phon e Number COPATH Wet prep (10/18/2011 10:20 AM CDT) [facility] gist Method Time Signature Specimen Vagina [place] Description [facility] LAB Wet Prep No Trichomonas seen [place] Clue cells seen [facility] Yeast seen LAB Micro Report FINAL [place] Status 10/18/2011 [facility] LAB Specimen Anatomical Collection Method Collection Time Receive d Time (Source) Location / / Volume Laterality 10/18/2011 10:20 10/18/2011 AM CDT 10:23 AM CDT Fermin Nelson MD LAB - MICRO GENERAL ORDERABL ES Performing Organization Address City/[facility]/ZIP Code Phon e Number [facility] [address] [facility] [place] [address] [facility] LAB documented in this encounter Visit Diagnoses Diagnosis Vulvar dystrophy - Primary Other dystrophy of vulva Vaginal itching Pruritus of genital organs Menorrhagia Excessive or frequent menstruation documented in this encounter Care Teams Science And Operations Officer Relationship Specialty Start Date End Date Danilo-Selma Mccoy, LEGAL EXAMINER STREET CLEANER PCP - General 04/09/08 04/07/15 [facility]5 [facility] [place] [address] documented as of this encounter
--- OUTSIDE RECORDS SUMMARY | 2022-02-02 09:20 | XMS_ITS | Encounter Summary ---
:1965 Author Organization [place] Address [address] [place] [address] Care Team Providers Name Role Phone Selma Angelo APRN [facility] Primary Care Provider Reason for Referral Referral not Required - Closed Specialty Diagnoses / Procedures Referred By Contact Refer red To Contact Diagnoses Upper back pain Selma Angelo, [facility] SUPERVISOR [facility] MED [address] [place] [address] ADMIN OFFICE [place] [address] [place] [address] Phone: [phone] Referral ID Status Reason Start Date Expiration Date Visits Requ ested Visits Authorized [id number] Closed 05/05/2011 11/01/2011 1 1 ILITY SPECIALIST Reason for Visit Reason Comments Physical Needs refill on medications but has enough until mid May Previsit Encounter Details Date Type Department Care Team Description 05/05/2011 Office Visit [facility] Lilo Angelo gen eral medical examination at a health care facility (Primary Dx); Pino Angeles APRN Hypertension goal BP (blood pressure) < 130/80; [address] [facility] Type 2 diabetes, HbA1C goal < 7% (H); [place] [address] [facility] Hyperlipidemia LDL goal <100 ; [phone] [facility] Migraine headache; [place] [address] GERD (gastroesophageal reflux disease); [phone] Vaginal atrophy ; (Work) Cervical pain; [phone] Upper back pain ; (Fax) Seasonal allerg [...] How often do you attend alevism or jewish Patient refused 08/08/2019 services? Do [...] Comments Blood Pressure 98/56 05/05/2011 8:38 AM USABILITY SPECIALIST Pulse 72 05/05/2011 8:38 AM USABILITY SPECIALIST Temperature - - Respiratory Rate - - Oxygen Saturation - - Inhaled Oxygen Concentration - - Weight 73.5 kg (162 lb) 05/05/2011 8:38 AM USABILITY SPECIALIST Height - - Body Mass Index 29.63 08/26/2010 2:29 PM CDT documented in this encounter Patient Instructions Patient InstructionsDanilo-Selma Mccoy NP - 05/05/2011 7:57 AM USABILITY SPECIALIST Return to clinic in 6 months (november) [...] a year for an exam and cleaning. ILITY SPECIALIST documented in this encounter Progress Notes [...] pain. Neck pain: She did go to [facility], which is controlled with gabapentin without relief of pain. She would like to come off this. The pain is stable and he would opt to not do any intervention at this ttime. L hip/back pain: Stable, but moderate. She does have a hx of SI joint fusion surgery, but [facility] said it looks as if it [...] Maintenance. All Histories reviewed and updated in [facility]. ROS: C: NEGATIVE for fever, chills, [...] a year for an exam and cleaning. ILITY SPECIALIST documented in this encounter Plan of Treatment Scheduled Referrals Name Type Priority Associated Diagnoses Order S katay BARRIGA PT, HAND, AND Referral Routine Upper back pain Ordered : 05/05/2011 CHIROPRACTIC REFERRAL documented as of this encounter Procedures Procedure Name Priority Date/Time Associated Diagnosis Comme nts PAP IMAGED THIN Routine 05/05/2011 8:39 AM Routine general Res ults for this LAYER SCREEN USABILITY SPECIALIST medical examination procedur e are in at a health care the results facility section. WET PREPARATION Routine 05/05/2011 8:39 AM Vaginal atrophy Res ults for this USABILITY SPECIALIST procedure are i n the results section. documented in this encounter Results Wet prep (05/05/2011 8:39 AM USABILITY SPECIALIST) [facility] Method Time Signature Specimen Vagina [place] Description [facility] LAB Wet Prep No yeast seen [place] No clue cells seen [facility] No Trichomonas seen LAB Micro Report FINAL [place] Status 05/05/2011 [facility] LAB Specimen Anatomical Collection Method Collection Time Receive d Time (Source) Location / / Volume Laterality 05/05/2011 8:39 AM 1 8:42 USABILITY SPECIALIST AM USABILITY SPECIALIST Selma Angelo DIALS SUPERVISOR RECORD TABULATING CLERK LAB - MICRO GENERAL ORD ERABLES Performing Organization Address City/State/ZIP Code Phon e Number [facility] [address] [place] [address] [address] [facility] LAB PAP IMAGED THIN LAYER SCREEN (05/05/2011 8:39 AM USABILITY SPECIALIST) Component Value Ref Test Analysis Performed At [facility] Range Method Time Signature PAP NIL COPATH Copath Report COPATH Patient Name: MEGAN CHOI MR#: [id number] Specimen #: [id number] Collected: 05/05/2011 Received: 05/08/2011 Reported: 05/09/2011 14:02 [...] TARIQ Mohamud(ASCP) Processed and screened at [facility] CLINICAL HISTORY: LMP: 04/09/2011 Previous Other-NIL EM>40 Date of Last Pap: 04/13/2008, Papanicolaou Test Limitations: ??Cervical cytology is a scre ening test with limited sensitivity; regular screening is critical for cancer prevention; Pap tests are primarily effective for the diagnosis/prevention of squamous cell carcinoma, not adenoca rcinomas or other cancers. TESTING LAB LOCATION: [facility] [address] [place], [place] ??[phone] COLLECTION SITE: Client: ??[facility] Location: EAFP (R) Specimen (Source) Anatomical Collection Method Collection Time Re ceived Time Location / / Volume Laterality Cytologic 05/05/2011 8:39 05/08/2011 material AM USABILITY SPECIALIST 10:11 AM USABILITY SPECIALIST (specimen) Selma Angelo APRN, CNP LAB - [...] unspecified documented in this encounter Care Teams Director Of Market Intelligence Relationship Specialty Start Date End Date Selma Angelo APRN CNP PCP - General 04/09/08 04/07/15 [address] [facility] [place] [address] documented as of this encounter
--- OUTSIDE RECORDS SUMMARY | 2022-02-02 09:20 | XMS_ITS | Encounter Summary ---
:1965 Author Organization [place] Address [address] [place] [address] Care Team Providers Name Role Phone Selma Bullard LIME BURNER MUSICAL STRING MAKER Primary Care Provider Reason for Visit Reason Onset Date Comments Cellulitis 08/29/2010 Encounter Details Date Type Department Care Team Description 08/29/2010 Telephone [facility] Eag Selma Anthony, Cellulitis [address] [facility] LIME BURNER MUSICAL STRING MAKER [place] [address] [facility] [phone] [facility] [place] [address] (Wo rk) Social [...] How often do you attend shinto or jainism Patient refused 08/08/2019 services? Do [...] on filedocumented in this encounter Care Teams Edge Grinder Machine Relationship Specialty Start Date End Date Selma Bullard, LIME BURNER MUSICAL STRING MAKER PCP - General 04/09/08 04/07/[address] [place] [address] documented as of this encounter
--- OUTSIDE RECORDS SUMMARY | 2022-02-02 09:20 | XMS_ITS | Encounter Summary ---
:1965 Author Organization [place] Address [address] [place] [address] Care Team Providers Name Role Phone Selma Good APRN [facility] Primary Care Provider [phone] Reason for Visit Reason Comments Other Pt [...] Department Care Team Description 08/26/2010 Office Visit [facility] Florentino, Cellulitis of leg Pino Angeles APRN (Primary Dx) [address] [facility] [place] [address] [facility]9 [facility] [phone] [facility] [place] [id number] Social History Tobacco Use Types Packs/Day Years [...] How often do you attend yarsanism or restoration Patient refused 08/08/2019 services? Do [...] ot documented in this encounter Care Teams Emergency Crew Supervisor Relationship Specialty Start Date End Date Selma Good APRN OPERATIONS RECRUITER PCP - General 04/09/08 04/07/15 [address] [facility] [address] [place], [place] [address] documented as of this encounter
--- OUTSIDE RECORDS SUMMARY | 2022-02-02 09:20 | XMS_ITS | Encounter Summary ---
:1965 Author Organization [place] Address [address] [place] [address] Care Team Providers Name Role Phone Selma Good APRN [facility] Primary Care Provider [phone] Reason for Visit Reason Comments RECHECK Encounter Details Date Type Department Care Team Description 12/05/2011 Office Visit [facility] Florentino, Headaches, migraine (Primary Dx); Pino Angeles APRN Cervical pain [address] [place] [address] [address] [facility] [phone] [facility] [place] [address] Social History Tobacco [...] medication. documented in this encounter Progress Notes eSlma Good NP - 12/05/2011 11:53 AM CDT [...] Cervicalgia documented in this encounter Care Teams Signal Circuit Designer Relationship Specialty Start Date End Date Selma Good APRN CFD ENGINEER PCP - General 04/09/08 04/07/15 [address] [facility] [place] [address] documented as of this encounter
--- OUTSIDE RECORDS SUMMARY | 2022-02-02 09:20 | XMS_ITS | Encounter Summary ---
:1965 Author Organization [place] Address [address] [place] [address] Care Team Providers Name Role Phone Selma Good APRN DRILLING INSPECTOR Primary Care Provider [phone] Reason for Visit Reason Onset Date Comments Chronic Care Conference Provider Overview 04/06/2010 Encounter Details Date Type Department Care Team Description 04/06/2010 Telephone [facility] Eag adarsh Good, Chronic Care Conference [address] [facility] Selma Angeles APRN DRILLING INSPECTOR Provider Overview [place] [phone] [address] [facility] [phone] [facility] [place] [address] (Wo rk) [...] How often do you attend scientologist or jainism Patient refused 08/08/2019 services? Do [...] filedocumented in this encounter Care Teams Senior Architect Relationship Specialty Start Date End Date Selma Good, B2B SALES MANAGER DRILLING INSPECTOR PCP - General 04/09/08 04/07/[address] [facility] [address] [place], [place] [address] documented as of this encounter
--- OUTSIDE RECORDS SUMMARY | 2022-02-02 09:20 | XMS_ITS | Encounter Summary ---
:1965 Author Organization [place] Address [address] [place] [address] Care Team Providers Name Role Phone Selma Good APRN HANDSTITCHING MACHINE ARMHOLE FELLER Primary Care Provider [phone] Encounter Details Date Type Department Care Team Description 10/23/2011 Orders Only [facility] Diego Nelson Vulvar dystrophy [facility] MD Flavia (Primary Dx) [place] [address] [place] [address] [facility] [address] [place] [address] [place], [place] [phone] [address] (Work) [phone] Social History Tobacco Use Types Packs/Day Years [...] vulva documented in this encounter Care Teams Clinical Rehab Specialist Relationship Specialty Start Date End Date Selma Good, SECURITY STRATEGIST HANDSTITCHING MACHINE ARMHOLE FELLER PCP - General 04/09/08 04/07/15 [address] [facility] [address] [place], [place] [address] documented as of this encounter
--- OUTSIDE RECORDS SUMMARY | 2022-02-02 09:20 | XMS_ITS | Encounter Summary ---
:1965 Author Organization [place] Address [address] [place] [address] Care Team Providers Name Role Phone Selma Good APRN AUTO BUMPER MECHANIC Primary Care Provider [phone] Reason for Visit Reason Comments Diabetes Recheck Medication Encounter Details Date Type Department Care Team Description 01/10/2012 Office Visit [facility] [place] [facility] Florentino, Type 2 diab etes, HbA1C goal < 7% (H) (Primary Dx); Pino Angeles APRN Migraine [address] [place] [address] [facility] [phone] [facility] [place] [address] Social History Tobacco Use [...] NP - 01/10/2012 9:39 AM CDT SUBJECTIVE: Megan Choi is a 46 year [...] mouth daily. Histories reviewed and updated in [facility]. ROS: Complete/DM ROS - C: NEGATIVE for fatigue, unexpected change in weight EYES: positive for worsening in visual acuity; is going to see remote encoding operations supervisor soon, feels that vision has been decreasing [...] athologist Signature TSH 1.55 0.4 - 5.0 [facility] mU/L CLINIC LAB Specimen Anatomical Collection Method Collection Time Receive d Time (Source) Location / / Volume Laterality Blood specimen 01/10/2012 10:38 2 (specimen) AM CDT 10:40 AM CDT Selma Good STERILIZER MACHINE OPERATOR AUTO BUMPER MECHANIC LAB - BLOOD ORDERABLES Performing Organization Address City/State/ZIP Code Phon e Number [facility] [address] [place] [address] [facility] LAB documented in this encounter Visit Diagnoses Diagnosis Type 2 diabetes, HbA1c goal < 7% (H) - P rimary Type II or unspecified type diabetes sukhdev litus without mention of complication, not stated as uncontrolled Migraine Migraine, unspecified, without mention o f intractable migraine without mention of status migrainosus documented in this encounter Care Teams Mail Handler Sorter Relationship Specialty Start Date End Date Selma Good, SEAN AUTO BUMPER MECHANIC PCP - General 04/09/08 04/07/[address] [facility] [place] [address] documented as of this encounter
--- OUTSIDE RECORDS SUMMARY | 2022-02-02 09:20 | XMS_ITS | Encounter Summary ---
:1965 Author Organization [place] Address [address] [place] [address] Care Team Providers Name Role Phone Selma Good APRN BACK END DEVELOPER Primary Care Provider Reason for Visit Reason Comments Jaw Pain jaw pain, neck pain, arm valdo n all day. Encounter Details Date Type Department Care Team Description 10/28/2011 - Emergency [facility] Albert Calloway MD [facility] [address] [place], [place] [id number] Chest pain; 10/29/[address] Ольга Hawkins MD [address] [place] [address] Hypertension goal BP (blood pressure) < 130/80; Surgical Vulvar dystrophy; [address] GERD (gastroesophageal reflu x disease); [place], [place] Hyperlipidemi a LDL goal <100 [phone] [...] How often do you attend jew or tenriism Patient refused 08/08/2019 services? Do you belong to any clubs or organizations such as No 08/08/2019 jew groups, [employer], [employer] or athletic groups, or school groups? How [...] 10:55 AM CDT Thank you for allowing [facility] to participate in your cares. 1 [...] her upper extremities reveals 5/5 strength of feed inspection supervisor, biceps, triceps of the bilateral upper extremities [...] MD MT: #[id number] Name: MEGAN WONG Account: [id number] : 1965 Admitted: [id number] Document: [id number] documented in this encounter ED Notes Ciera [...] Normal sinus rhythm, ventricular rate 62 bpm. GA Interval: 196 ms QRS Duration: 98 ms [...] record. The patient was placed on a cardiac catheterization technician and continuous pulse oximeter. IV inserted. 2230 [...] Individualization/Patient-Specific Goal (Adult,OB,Behavioral The patient and/or their quality assurance representative will achieve their patient-specific goals related [...] . Pharmacy-Admission Medication History - Larry Reyes [facility] - 10/29/2011 9:28 AM CDT Medication Reconciliation Complete. Plan of Care - Cristina Lacy RN - 10/29/2011 7:03 AM CDT Problem: IP GENERAL POC-ADULT,OB,BEHAVIORAL FVCPM Goal: Individualization/Patient-Specific Goal (Adult,OB,Behavioral The patient and/or their quality assurance representative will achieve their patient-specific goals related [...] 4:45 CDT PM CDT Kalyan Calloway MD [facility] POCT Performing Organization Address City/State/ZIP Code Phon e Number FV POINT OF CARE TEST, GLUCOSE POINT OF CARE TEST, GLUCOSE Echo stress test (10/29/2011 7:50 AM CDT) [facility] gist Method Time Signature [facility] Interpretation [...] Signature Troponin I ES <0.012 0.000 - [facility] 0.034 ug/L [facility] Specimen Anatomical Collection Method Collection Time Receive d Time (Source) Location / / Volume Laterality Blood specimen 10/29/2011 6:15 AM 012 6:39 (specimen) CDT AM CDT Wisam Weiss MD LAB - BLOOD ORDERABLES Performing Organization Address City/[facility] [address]/[facility] Phon e Number [place] [address] [place], [place] [address] [facility] Hemoglobin A1c (10/29/2011 6:15 AM CDT) athologist Signature Hemoglobin A1C 5.5 4.3 - 6.0 [facility] Specimen Anatomical Collection Method Collection Time Receive d Time (Source) Location / / Volume Laterality Blood specimen 10/29/2011 6:15 AM 012 6:38 (specimen) CDT AM CDT Wisam Weiss MD LAB - BLOOD ORDERABLES Performing Organization Address City/[facility] [address]/[facility] e [place] [address] [place], [place] [address] [address] [phone] [place] [address] LAB Troponin I (10/29/2011 2:35 AM CDT) athologist Signature Troponin I ES <0.012 0.000 - [facility] 0.034 ug/L [facility] Specimen Anatomical Collection Method Collection Time Receive d Time (Source) Location / / Volume Laterality Blood specimen 10/29/2011 2:35 AM 012 2:36 (specimen) CDT AM CDT Ольга Hawkins MD LAB - BLOOD ORDERABLES Performing Organization Address City/[facility] [address]/[facility] Phon e [place] [address] [place], [place] [address] [facility] CT Angiogram neck w & w/o [...] 1:30 CDT AM CDT Kalyan Calloway MD [facility] - [facility] POCT Performing Organization Address City/State/ZIP [...] Signature D Dimer 0.4 0.0 - 0.50 [facility] ug/ml [facility] LAB Specimen Anatomical Collection Method Collection Time Receive d Time (Source) Location / / Volume Laterality 10/28/2011 9:55 PM 2 CDT 10:12 PM CDT Kalyan Calloway MD LAB - BLOOD ORDERABLES Performing Organization Address City/[facility] [address]/[facility] Phon e Number [facility] [address] [place], [place] [address] [facility] Troponin I (now) (10/28/2011 9:55 PM CDT) athologist Signature Troponin I ES <0.012 0.000 - [place] 0.034 ug/L [facility] Specimen Anatomical Collection Method Collection Time Receive d Time (Source) Location / / Volume Laterality Blood specimen 10/28/2011 9:55 PM 012 (specimen) CDT 10:12 PM CDT Kalyan Calloway MD LAB - BLOOD ORDERABLES Performing Organization Address City/[facility] [address]/[facility] Phon e Number [facility] [address] [place], [place] [address] [facility] CBC + differential (10/28/2011 9:55 PM CDT) Patholo gist Method Time Signature WBC 8.1 4.0 - [place] 11.0 [facility] 10e9/L [facility] RBC Count 4.09 3.8 - 5.2 [place] 10e12/L [facility] Hemoglobin 12.3 11.7 - [place] 15.7 g/dL [facility] Hematocrit 37.9 35.0 - [place] 47.0 % [facility] MCV 93 78 - 100 [facility] LAB MCH 30.1 26.5 - [facility] 33.0 pg [facility] MCHC 32.5 31.5 - [facility] 36.5 g/dL [facility] RDW 12.5 10.0 - [place] 15.0 % [facility] Platelet Count 221 150 - 450 [place] 10e9[facility] Diff Method Automated [place] Method [facility] % Neutrophils 48.0 40 - 75 % [facility] % Lymphocytes 39.9 20 - 48 % [facility] % Monocytes 7.9 0 - 12 % [facility] % Eosinophils 3.1 0 - 6 % [facility] % Basophils 0.7 0 - 2 % [facility] % Immature 0.4 0 - 0.4 % [place] Granulocytes [facility] Absolute 3.9 1.6 - 8.3 [place] Neutrophil 10e9/L [facility] Absolute 3.3 0.8 - 5.3 [place] Lymphocytes [address] LAB Absolute 0.6 0.0 - 1.3 [place] Monocytes 10e9/[facility] Absolute 0.3 0.0 - 0.7 [place] Eosinophils 10e9[facility] Absolute 0.1 0.0 - 0.2 [place] Basophils 10e9[facility] Abs Immature 0.0 0 - 0.03 [place] Granulocytes [address] [place] [address] LAB Specimen Anatomical Collection Method Collection Time Receive d Time (Source) Location / / Volume Laterality Blood specimen 10/28/2011 9:55 PM 012 (specimen) CDT 10:12 PM CDT Kalyan Calloway MD LAB - BLOOD ORDERABLES Performing Organization Address City/State/ZIP Code Phon e Number [facility] [address] [place], [place] [address] [facility] (ABNORMAL) Basic metabolic panel (BMP) (10/28/2011 9:55 PM CDT) P athologist Signature Sodium 142 133 - 144 [place] mmol/L [facility] Potassium 3.6 3.4 - 5.3 [place] mmol/L [facility] Chloride 100 94 - 109 [place] mmol/L [facility] Carbon Dioxide 31 20 - 32 [place] mmol/L [facility] Anion Gap 12 6 - 17 [place] mmol/L [facility] Glucose 102 (H) 60 - 99 [place] mg/dL [facility] Urea Nitrogen 16 5 - 24 [place] mg/dL [facility] Creatinine 0.63 0.52 - [facility] 1.04 mg/dL [facility] GFR Estimate >90 >60 [place] mL/min/1.[address] LAB GFR Estimate If >90 >60 [place] Black mL/min/1.[address] LAB Calcium 9.2 8.5 - 10.4 [place] mg/dL [facility] Specimen Anatomical Collection Method Collection Time Receive d Time (Source) Location / / Volume Laterality Blood specimen 10/28/2011 9:55 PM 012 (specimen) CDT 10:12 PM CDT Kalyan Calloway MD LAB - BLOOD ORDERABLES Performing Organization Address City/State/ZIP Code Phon e Number [place] [address] [place], [place] [address] [facility] EKG 12 lead (10/28/2011 9:15 PM CDT) Component Value Ref Range Test Analysis Performed Pathologis t Method Time At Signature Ventricular Rate 62 BPM RADIOLOGY RESULTS Atrial Rate 62 BPM RADIOLOGY RESULTS GA Interval 196 ms RADIOLOGY RESULTS QRS Duration 98 ms RADIOLOGY RESULTS QT 410 ms RADIOLOGY RESULTS QTc 416 ms RADIOLOGY RESULTS P [place] 57 degrees RADIOLOGY RESULTS R AXIS -27 degrees RADIOLOGY RESULTS T [place] 48 degrees RADIOLOGY RESULTS Interpretation AGE AND [...] doses documented in this encounter Care Teams Nuclear Operations Specialist Relationship Specialty Start Date End Date Slema Good, PROJECT ARCHITECT BACK END DEVELOPER PCP - General 04/09/08 04/07/15 [address] [facility] [place] [address] documented as of this encounter
--- OUTSIDE RECORDS SUMMARY | 2022-02-02 09:20 | XMS_ITS | Encounter Summary ---
:1965 Author Organization [place] Address [address] [place] [address] Care Team Providers Name Role Phone Selma Good APRN COMMUNITY HEALTH REPRESENTATIVE Primary Care Provider [phone] Encounter Details Date Type Department Care Team Description 04/29/2011 Orders Only [facility] Eag an Type 2 diabetes, HbA1C [...] How often do you attend hinduism or yarsani Patient refused 08/08/2019 services? Do [...] 2 diabete s, Results for this QUANTITATIVE FRONT END ASSISTANT HbA1C goal < 7% (H) procedur e are in the results section. LIPID REFLEX TO DIRECT Routine 04/29/2011 8:15 AM Type 2 diabe shirley, Results for this LDL PANEL FRONT END ASSISTANT HbA1C goal < 7% (H) procedur e are in the results section. HEMOGLOBIN A1C Routine 04/29/2011 8:15 AM Type 2 diabetes, Res ults for this FRONT END ASSISTANT HbA1C goal < 7% (H) procedur e are in the results section. COMPREHENSIVE Routine 04/29/2011 8:15 AM Type 2 diabetes, Resu lts for this METABOLIC PANEL FRONT END ASSISTANT HbA1C goal < 7% (H) proce dure are in the results section. documented in this encounter Results Microalbumin quantitative, random urine (04/29/2011 8:16 AM FRONT END ASSISTANT) P athologist Signature Creatinine 241 mg/dL [facility] Urine [facility] Albumin Urine 10 mg/L [facility] mg/L [facility] Albumin Urine 4.27 0 - 20 [facility] mg/g Cr mg/g Cr [facility] Specimen Anatomical Collection Method Collection Time Receive d Time (Source) Location / / Volume Laterality Urine specimen 04/29/2011 8:16 AM 011 8:17 (specimen) FRONT END ASSISTANT AM FRONT END ASSISTANT Selma Good APRN COMMUNITY HEALTH REPRESENTATIVE LAB - URINE ORDERABLES Performing Organization Address City/State/ZIP Code Phon e Number [facility] [address] [place] [address] [facility] Comprehensive metabolic panel (BMP + Alb, Alk Phos, ALT, AST, Total. Bili, TP) (04/29/2011 8:15 AM FRONT END ASSISTANT) athologist Signature Sodium 142 133 - 144 [facility] mmol/L [facility] Potassium 3.9 3.4 - 5.3 [facility] mmol/L [facility] Chloride 107 94 - 109 [facility] mmol/L [facility] Carbon Dioxide 25 20 - 32 [facility] mmol/L [facility] Anion Gap 10 6 - 17 [facility] mmol/L [facility] Glucose 97 60 - 99 [facility] mg/dL [facility] Urea Nitrogen 13 5 - 24 [facility] mg/dL [facility] LAB Creatinine 0.74 0.52 - [facility] 1.04 mg/dL [facility] LAB GFR Estimate 84 >60 [facility] mL/min/1.7 [facility] m2 GFR Estimate If >90 >60 [facility] Black mL/min/1.7 [facility] LAB m2 Calcium 9.3 8.5 - 10.4 [facility] mg/dL [facility] Bilirubin Total 0.7 0.2 - 1.3 [facility] mg/dL [facility] Albumin 4.1 3.9 - 5.1 [facility] g/dL [facility] LAB Comment: Reference range changed on 02/10. Protein Total 7.5 6.8 - 8.8 g/dL [facility] Comment: As of 07, reference range reflects plasma specimen type. Alkaline Phosphatase 78 40 - 150 U/L [facility] ALT 19 0 - 50 U/L [facility] LAB AST 21 0 - 45 U/L [facility] LAB Specimen Anatomical Collection Method Collection Time Receive d Time (Source) Location / / Volume Laterality Blood specimen 04/29/2011 8:15 AM 011 8:17 (specimen) FRONT END ASSISTANT AM FRONT END ASSISTANT Selma Good APRN COMMUNITY HEALTH REPRESENTATIVE LAB - BLOOD ORDERABLES Performing Organization Address City/[facility]/ZIP Code Phon e Number [facility] [address] [place] [address] [phone] [facility] (ABNORMAL) Lipid Profile with reflex to direct LDL (04/29/2011 8:15 AM FRONT END ASSISTANT) athologist Signature Cholesterol 123 0 - 200 [facility] mg/dL CLINIC LAB Comment: LDL Cholesterol is the primary guide to therapy. The NCEP recommends further evaluation of: patients with cholesterol greater than 200 mg/dL if additional risk facto rs are present, cholesterol greater than 240 mg/dL, triglycerides greater than 1 50 mg/dL, or HDL less than 40 mg/dL. Triglycerides 63 0 - 150 mg/dL [facility] LAB HDL Cholesterol 40 (L) 50 - 110 mg/dL [facility] LDL Cholesterol Calculated 70 0 - 129 mg/dL [facility] Comment: LDL Cholesterol is the primary guide to therapy: LDL-cholesterol goal in high risk patients is <100 mg/dL and in very high risk patients is <70 mg/dL. VLDL-Cholesterol 13 0 - 30 mg/dL [facility] LAB Cholesterol/HDL Ratio 3.1 0.0 - 5.0 [facility] Specimen Anatomical Collection Method Collection Time Receive d Time (Source) Location / / Volume Laterality Blood specimen 04/29/2011 8:15 AM 011 8:17 (specimen) FRONT END ASSISTANT AM FRONT END ASSISTANT Selma Good APRN, CNP LAB - BLOOD ORDERABLES Performing Organization Address City/[facility]/ZIP Code Phon e Number [facility] [address] [place] [address] [phone] [facility] Hemoglobin A1c (04/29/2011 8:15 AM FRONT END ASSISTANT) athologist Signature Hemoglobin A1C 5.6 4.3 - 6.0 [facility] % CLINIC LAB Specimen Anatomical Collection Method Collection Time Receive d Time (Source) Location / / Volume Laterality Blood specimen 04/29/2011 8:15 AM 011 8:17 (specimen) FRONT END ASSISTANT AM FRONT END ASSISTANT Selma Good APRN, CNP LAB - BLOOD ORDERABLES Performing Organization Address City/State/ZIP Code Phon e Number [facility] [address] [facility] [place] [address] [facility] documented in this encounter Visit Diagnoses Diagnosis Type 2 diabetes, HbA1c goal < 7% (H) Type II or unspecified type diabetes sukhdev litus without mention of complication, not stated as uncontrolled documented in this encounter Care Teams Medical Secretary Receptionist Relationship Specialty Start Date End Date Selma Good APRN CNP PCP - General 04/09/08 04/07/15 [address] [facility] [place] [address] documented as of this encounter
--- OUTSIDE RECORDS SUMMARY | 2022-02-02 09:20 | XMS_ITS | Encounter Summary ---
:1965 Author Organization [place] Address [address] [place] [address] Care Team Providers Name Role Phone Selma Good APRN MANAGER FIXED INCOME Primary Care Provider [phone] Reason for Visit Reason Onset Date Comments Refill Request 06/20/2010 omeprazole Encounter Details Date Type Department Care Team Description 06/20/2010 Refill [facility] Eag Selma Anthony Refill Request [address], SEAN MANAGER FIXED INCOME (omeprazole ) [place] [phone] [address] [facility] [phone] [facility] [place] [address] (Wo rk) Social [...] How often do you attend gnosticist or restorationism Patient refused 08/08/2019 services? Do [...] per standing order per protocol. Zak JERNIGAN ING PERSONS INVESTIGATOR documented in this encounter Plan of Treatment Not on filedocumented as of this encounter Visit Diagnoses Diagnosis GERD (gastroesophageal reflux disease) - Primary Esophageal reflux documented in this encounter Care Teams Line Pilot Relationship Specialty Start Date End Date Danilo-Selma Mccoy, DIETITIAN CHIEF MANAGER FIXED INCOME PCP - General 04/09/08 04/07/15 [address] [facility] [place] [address] documented as of this encounter
--- OUTSIDE RECORDS SUMMARY | 2022-02-02 09:20 | XMS_ITS | Encounter Summary ---
:1965 Author Organization [facility] Address [address] [place] [address] Care Team Providers Name Role Phone Selma Good APRN REINFORCED IRONWORKER Primary Care Provider [phone] Reason for Visit Reason Comments UTI Or yeast symptoms Encounter Details Date Type Department Care Team Description 07/27/2011 Office Visit [facility] Vanda Guerrero Vaginal infection; Pino Toribio MD UTI (urinary tract infection); [address] [place] [address] Vaginal itching [place] [phone] [facility] [address] [phone] [place] [phone] (Wo rk) Social History Tobacco Use Types [...] Comments Blood Pressure 110/65 07/27/2011 9:40 AM CYCLE MANAGER Pulse 68 07/27/2011 9:40 AM CYCLE MANAGER Temperature - - Respiratory Rate - - Oxygen Saturation - - Inhaled Oxygen Concentration - - Weight 72.6 kg (160 lb) 07/27/2011 9:40 AM CYCLE MANAGER Height 157.5 cm (5' 2) 07/27/2011 9:40 AM CYCLE MANAGER Body Mass Index 29.26 07/27/2011 9:40 AM CYCLE MANAGER documented in this encounter Patient Instructions Patient InstructionsVanda Guerrero MD - 07/27/2011 10:02 AM CST Bladder infection - push fluids - start taking bactrim twice daily for the next 3 days Vaginal itching - normal wet prep today - trial of steroid cream - use twice daily - make appt to see swat team member again E MANAGER documented in this encounter Progress Notes Vanda [...] Ketones Urine Low: NEG mg/dL Negative Specific Exchange Urine 1.003 - 1.035 1.025 Blood Urine [...] twice daily - make appt to see swat team member again Vanda Guerrero MD Internal Medicine - Pediatrics E MANAGER documented in this encounter Nursing Notes 07/27/2011 9:30 AM CST >> KEYANNA WOODWARDSALAS [facility] Jul 27, 2011 9:43 AM Patient [...] (urinary tract Resu lts for this AM CYCLE MANAGER infection) procedure are i n the results section. URINE MICROSCOPIC Routine 07/27/2011 9:37 AM Resu lts for this CYCLE MANAGER procedure are i n the results section. UA MACROSCOPIC WITH Routine 07/27/2011 9:37 AM UTI (urinary tr act Results for this REFLEX TO MICROSCOPIC CYCLE MANAGER infection) proced ure are in AND CULTURE the results section. WET PREPARATION Routine 07/27/2011 9:33 AM Vaginal infection R esults for this CYCLE MANAGER procedure are i n the results section. documented in this encounter Results Urine culture (07/27/2011 10:03 AM CYCLE MANAGER) Component Value Ref Test Analysis Performed [...] Urine specimen 07/27/2011 10:03 2 (specimen) AM CYCLE MANAGER 10:06 AM CYCLE MANAGER Vanda Guerrero MD LAB - MICRO GENERAL ORDERABL ES Performing Organization Address City/State/ZIP Code Phon e Number [facility] [address] [place], [place] [phone] [place] [address] [facility] (ABNORMAL) Urine Microscopic (07/27/2011 9:37 AM CYCLE MANAGER) Analysis Performed At Patho logist Time Signature WBC Urine 5-10 (A) 0 - 2 /HPF [facility] RBC Urine O - 2 0 - 2 /HPF [facility] Squamous Few FEW /LPF [facility] Epit[facility] /[facility] Urine LAB Bacteria Urine Few (A) NEG /HPF [facility] Specimen Anatomical Collection Method Collection Time Receive d Time (Source) Location / / Volume Laterality 07/27/2011 9:37 AM 2 9:39 CYCLE MANAGER AM CYCLE MANAGER Vanda Guerrero MD LAB - URINE ORDERABLES Performing Organization Address [facility]/ZIP [facility] Phon e Number [address] [address] [facility] (ABNORMAL) *UA macro reflex to micro and culture (07/27/2011 9:37 AM CYCLE MANAGER) [facility] Method Time Signature Color Urine Yellow [facility] Appearance Urine Clear [facility] Glucose Urine 250 (A) NEG mg/dL [facility] Bilirubin Urine Negative NEG [facility] Ketones Urine Negative NEG mg/dL [facility] Specific Exchange 1.025 1.003 - [place] Urine 1.035 [facility] Blood Urine Trace (A) NEG [facility] pH Urine 5.0 5.0 - 7.0 [place] pH [facility] Protein Albumin Negative NEG mg/dL [place] Urine [facility] Urobilinogen 0.2 0.2 - 1.0 [place] Urine EU/dL [facility] Nitrite Urine Negative NEG [facility] Leukocyte Negative NEG [place] Esterase Urine [facility] Source Midstream [place] Urine [facility] Specimen Anatomical Collection Method Collection Time Receive d Time (Source) Location / / Volume Laterality Urine specimen 07/27/2011 9:37 AM 012 9:39 (specimen) CYCLE MANAGER AM CYCLE MANAGER Vanda Guerrero MD LAB - URINE ORDERABLES Performing Organization Address City/[facility]/ZIP Code Phon e Number [facility] [address] [place] [address] [facility] Wet prep (07/27/2011 9:33 AM CYCLE MANAGER) [facility] Method Time Signature Specimen Urine [place] Description [facility] Wet Prep No Trichomonas seen [place] No clue cells seen [facility] No yeast seen LAB Micro Report FINAL [place] Status 07/27/2011 [facility] Specimen Anatomical Collection Method Collection Time Receive d Time (Source) Location / / Volume Laterality 07/27/2011 9:33 AM 2 9:35 CYCLE MANAGER AM CYCLE MANAGER Vanda Guerrero MD LAB - MICRO GENERAL ORDERABL ES Performing Organization Address City/State/ZIP Code Phon e Number [facility] [address] [facility] [place] [address] [facility] documented in this encounter Visit Diagnoses Diagnosis Vaginal infection Vaginitis and vulvovaginitis, unspecifie d UTI (urinary tract infection) Urinary tract infection, site not specif ied Vaginal itching Pruritus of genital organs documented in this encounter Care Teams Studio Associate Relationship Specialty Start Date End Date Selma Good, SEAN REINFORCED IRONWORKER PCP - General 04/09/08 04/07/15 [address] [facility] [place] [address] documented as of this encounter
--- OUTSIDE RECORDS SUMMARY | 2022-02-02 09:20 | XMS_ITS | Encounter Summary ---
:1965 Author Organization [place] Address [address] [place] [address] Care Team Providers Name Role Phone Selma Good APRN PRESIDENT EDUCATIONAL INSTITUTION Primary Care Provider [phone] Reason for Visit Reason Comments Vaginal Problem c/o vaginal itching and disc harge x 2 mos,has tried OTC Monistat 7 day with previous relief Flu Shot Encounter Details Date Type Department Care Team Description 03/09/2011 Office Visit [facility] Vanda Guerrero vaginosis (Primary Dx); Pino Toribio MD Vaginal candidiasis; [address] [address] [place] [address] Migraine headaches; [place] [phone] [facility] Need for prophylactic vaccination and in oculation against influenza [phone] [place] [address] (Wo rk) Social History [...] How often do you attend episcopalian or hindu Patient refused 08/08/2019 services? 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 She usually follows with Dr Howard for [...] 10:00 AM CDT >> ADALBERTO VILLAFANA [facility] Mar 09, 2011 10:14 AM Patient presents [...] to contact lens solution/thimerosol? No History of Guillain-Rensselaer syndrome? No Undergoing chemotherapy or radiation therapy? [...] Results Wet prep (03/09/2011 10:04 AM CDT) [facility] Method Time Signature Specimen Vagina [facility] Description [facility] Wet Prep No Trichomonas seen [facility] Clue cells seen [facility] Yeast seen LAB Micro Report FINAL [facility] Status 03/09/2011 [facility] Specimen Anatomical Collection Method Collection Time Receive d Time (Source) Location / / Volume Laterality 03/09/2011 10:04 03/09/2011 AM CDT 10:09 AM CDT Vanda Guerrero MD LAB - MICRO GENERAL ORDERABL ES Performing Organization Address City/State/ZIP Code Phon e Number [facility] [address] [place] [address] [facility] documented in this encounter Visit Diagnoses Diagnosis Bacterial vaginosis - Primary Vaginitis and vulvovaginitis, unspecifie d Vaginal candidiasis Candidiasis of vulva and vagina Migraine headaches Migraine, unspecified, without mention o f intractable migraine without mention of status migrainosus Need for prophylactic vaccination and in oculation against influenza documented in this encounter Care Teams Nougat Cutter Machine Relationship Specialty Start Date End Date Danilo-Selma Mccoy, TIMBER FRAMER PRESIDENT EDUCATIONAL INSTITUTION PCP - General 04/09/08 04/07/[address] [place] [address] documented as of this encounter
--- OUTSIDE RECORDS SUMMARY | 2022-02-02 09:20 | XMS_ITS | Encounter Summary ---
:1965 Author Organization [place] Address [address] [place] [address]. [place] [address] Care Team Providers Name Role Phone Selma Good APRN LINK TRAINER OPERATOR Primary Care Provider [phone] Encounter Details Date Type Department Care Team Description 07/16/2010 Historic Results [facility] Kylah Howard, [address] [place] [address] [address] [place], [place] [address] NEUROLOGY [phone] [address] [facility] [address] [place], [place] [address] (Wo rk) Social History [...] How often do you attend adventist or mandaen Patient refused 08/08/2019 services? Do [...] 07/16/2010 11:00 AM Res ults for this INBOUND INGREDIENT LOGISTICS SPECIALIST procedure are i n the results section. documented in this encounter Results (ABNORMAL) Electrolyte panel (07/16/2010 11:00 AM INBOUND INGREDIENT LOGISTICS SPECIALIST) P athologist Signature Sodium 145 (H) 133 - 144 [facility] mmol/L Potassium 4.0 3.4 - 5.3 [facility] mmol/L Chloride 108 94 - 109 [facility] mmol/L Carbon Dioxide 28 20 - 32 [place] mmol/L Anion Gap 9 6 - 17 [place] mmol/L Specimen Anatomical Collection Method Collection Time Receive d Time (Source) Location / / Volume Laterality 07/16/2010 11:00 07/16/2010 AM INBOUND INGREDIENT LOGISTICS SPECIALIST 10:57 AM INBOUND INGREDIENT LOGISTICS SPECIALIST Kylah Howard MD LAB - BLOOD ORDERABLES Performing Organization Address City/State/ZIP Code Phon e Number [facility] documented in this encounter Visit Diagnoses Not on filedocumented in this encounter Care Teams Knife Machine Operator Relationship Specialty Start Date End Date Selma Good APRN LINK TRAINER OPERATOR PCP - General 04/09/08 04/07/15 [address] [facility] [place] [address] documented as of this encounter
--- OUTSIDE RECORDS SUMMARY | 2022-02-02 09:20 | XMS_ITS | Encounter Summary ---
:1965 Author Organization [place] Address [address] [place] [address] Care Team Providers Name Role Phone Selma Good APRN [facility] Primary Care Provider Reason for Referral - Closed Specialty Diagnoses / Procedures Referred By Contact Refer red To Contact Diagnoses Back pain Selma Good APRN [facility] [address] [facility] [place] [address] Referral ID Status Reason Start Date Expiration Date Visits Requ ested Visits Authorized [id number] Closed 04/08/2010 04/08/2010 1 1 Reason for Visit Reason Comments RECHECK Pt is here today to review l ab results. Also she would like to discuss some of the medications (Metformi n) she is currently taking. Encounter Details Date Type Department Care Team Description 04/08/2010 Office Visit [facility] Florentino, Migraine he adaches; Pino Angeles APRN Type 2 diabetes, HbA1C goal < 7% (H); [facility] Hyperlipidemia LDL goal <100; [place] [phone] [address] [facility] Hypertension goal BP (blood pressure) < 130/80; [phone] NASIR ANDRE Back pain; [place] [address] Need for prophylactic vaccination and in oculation [...] How often do you attend moravian or confucianism Patient refused 08/08/2019 services? Do [...] Body Mass Index 35.49 07/12/2009 4:06 PM BI DATA ARCHITECT documented in this encounter Patient Instructions Patient [...] Expect a phone call to schedule with [facility] to discuss back pain. Schedule Mammogram: [facility] at documented in this encounter Progress Notes Selma Good - 04/08/2010 4:52 PM CDT SUBJECTIVE: Megan Choi presents today [...] Histories reviewed and updated in [facility]. REVIEW OF SYSTEMS: C: NEGATIVE for fatigue, [...] tablet 724.5E Back pain Comment: Plan: ORTHO PCTS REFERRAL V04.81 Need for prophylactic vaccination and [...] Expect a phone call to schedule with [facility] to discuss back pain. Schedule Mammogram: [facility] at documented in this encounter Nursing [...] Priority Date/Time Associated Diagnosis Comme nts ORTHOPEDIC PCTS Routine 09/20/2010 Back pain Results for this REFERRAL procedure are i n the results section . documented in this encounter Results ORTHO PCTS REFERRAL (09/20/2010) Brendas Yoly Blackwell - 09/20/2010 Dates & times dont work for her right now, she has no PTO time left. She will call back and make an jairo ointment next year Narrative This result has an attachment that is no t available. Selma Good APRN LIQUOR MERCHANT REFERRAL documented in this encounter Visit Diagnoses [...] influenza documented in this encounter Care Teams Laborer Drying Department Relationship Specialty Start Date End Date Selma Good APRN LIQUOR MERCHANT PCP - General 04/09/08 04/07/15 [address] [facility] [place] [address] documented as of this encounter
--- OUTSIDE RECORDS SUMMARY | 2022-02-02 09:20 | XMS_ITS | Encounter Summary ---
:1965 Author Organization [place] Address [address] [place] [address] Care Team Providers Name Role Phone Selma Good APRN ASSOCIATE LOAN OFFICER Primary Care Provider [phone] Vanda Guerrero MD Primary Care Provider [phone] Encounter Details Date Type Department Care Team Description 10/29/2011 Historic Results [facility] Heart Unknown, [facility] ider Clinic [address] [place] [address] Social History Tobacco Use Types [...] How often do you attend restorationism or jainism Patient refused 08/08/2019 services? Do [...] on filedocumented in this encounter Care Teams Alumni Relations Manager Relationship Specialty Start Date End Date Selma Good APRN ASSOCIATE LOAN OFFICER PCP - General 04/09/08 04/07/[address] [place] [address] Vanda Guerrero MD PCP - General Internal Medicine 04/08/15 01/08/[address] [facility] [facility] [address] [place], [place] [address] documented as of this encounter
--- OUTSIDE RECORDS SUMMARY | 2022-02-02 09:20 | XMS_ITS | Encounter Summary ---
:1965 Author Organization [place] Address [address] [place] [address] Care Team Providers Name Role Phone Selma Good APRN, CNP Primary Care Provider [phone] Reason for Visit Reason Onset Date Comments Refill Request 10/14/2010 change Omeprazole Rx to mail order pharmacy Encounter Details Date Type Department Care Team Description 10/14/2010 Refill [facility] Selma Anthony Refill Request (change [facility] SEAN Angeles CNP Omeprazole Rx to mail [place] [phone] [place] [address] pharmacy) [phone] [facility] [place] [id number] (Wo rk) Social History Tobacco Use Types [...] How often do you attend religion or jewish Patient refused 08/08/2019 services? Do [...] 9:28 AM CDT Requesting Rx sent to [facility] mail order pharmacy instead of [facility]. Rx faxed to [facility]. Thea Winchester RN documented in this encounter Plan of Treatment Not on filedocumented as of this encounter Visit Diagnoses Diagnosis GERD (gastroesophageal reflux disease) - Primary Esophageal reflux documented in this encounter Care Teams Primary Montessori Teacher Relationship Specialty Start Date End Date Danilo-Selma Mccoy APRN FELT CUTTER PCP - General 10/30/08 10/28/15 [address] [facility] [place] [address] documented as of this encounter
--- OUTSIDE RECORDS SUMMARY | 2022-02-02 09:20 | XMS_ITS | Encounter Summary ---
:1965 Author Organization [place] Address [address] [place] [address] Care Team Providers Name Role Phone Selma Good APRN ADVANCED REGISTERED NURSE Primary Care Provider [phone] Encounter Details Date Type Department Care Team Description 06/21/2011 Office Visit [facility] Diego Padilla NO SHOW (Primary Dx) [address] [email or web address] [address] [address] [facility] [phone] [facility] [place] [address] Social History Tobacco [...] - 06/26/2011 9:56 AM CST appt cancelled RNET MEDIA PLANNER documented in this encounter Plan of Treatment Not on filedocumented as of this encounter Visit Diagnoses Diagnosis NO SHOW - Primary documented in this encounter Care Teams Horse Farm Manager Relationship Specialty Start Date End Date Selma Good, SEAN ADVANCED REGISTERED NURSE PCP - General 04/09/08 04/07/15 [address] [facility] [place] [address] documented as of this encounter
--- OUTSIDE RECORDS SUMMARY | 2022-02-02 09:20 | XMS_ITS | Encounter Summary ---
:1965 Author Organization [place] Address [address] [place] [address] Care Team Providers Name Role Phone Selma Good APRN INFORMATION TECHNOLOGY PROFESSOR Primary Care Provider [phone] Reason for Visit Reason Comments Ultrasound Encounter Details Date Type Department Care Team Description 10/27/[address] [facility] Women's [facility] norrhagia (Primary Dx) Clinic [place] [address] [place] [address] Social History Tobacco Use [...] How often do you attend congregation or latter day Patient refused 08/08/2019 services? [...] ??Normal study. Christy Ibarra M.D. Narrative 10/27/2011 [facility] [address] [facility]. [address] [place] [address] ULTRASOUND - PELVIC AMMUNITION STORAGE SUPERINTENDENT Referring MD: Diego Nelson MD Primary Clinic: [facility] Ultrasound disk#: [id number] CLINICAL INFORMATION Indications for ultrasound: Bleeding/Menses - [...] menstruation documented in this encounter Care Teams Public Health Teacher Relationship Specialty Start Date End Date Selma Good APRN INFORMATION TECHNOLOGY PROFESSOR PCP - General 04/09/08 04/07/15 [address] [facility] [place] [address] documented as of this encounter
--- OUTSIDE RECORDS SUMMARY | 2022-02-02 09:20 | XMS_ITS | Encounter Summary ---
:1965 Author Organization [place] Address [address] [place] [address] Care Team Providers Name Role Phone Selma Good APRN GUM MAKER Primary Care Provider [phone] Encounter Details Date Type Department Care Team Description 08/03/2010 Orders Only [facility] Eag [...] Type 2 diabetes, Res ults for this JUNIOR STAFF ACCOUNTANT HbA1C goal < 7% (H) procedur e are in the results section . documented in this encounter Results Hemoglobin A1c (08/03/2010 9:25 AM JUNIOR STAFF ACCOUNTANT) athologist Signature Hemoglobin A1C 6.0 4.3 - 6.0 [facility] Specimen Anatomical Collection Method Collection Time Receive d Time (Source) Location / / Volume Laterality Blood specimen 08/03/2010 9:25 AM 011 9:30 (specimen) JUNIOR STAFF ACCOUNTANT AM JUNIOR STAFF ACCOUNTANT Selma Good APRN GUM MAKER LAB - BLOOD ORDERABLES Performing Organization Address City/State/ZIP Code Phon e Number [facility] [address] [place] [address] [facility] documented in this encounter Visit Diagnoses Diagnosis Type 2 diabetes, HbA1c goal < 7% (H) - P rimary Type II or unspecified type diabetes sukhdev litus without mention of complication, not stated as uncontrolled documented in this encounter Care Teams Electrical Engineering Draftsperson Relationship Specialty Start Date End Date Selma Good APRN GUM MAKER PCP - General 04/09/08 04/07/[address] [facility] [address] documented as of this encounter
--- OUTSIDE RECORDS SUMMARY | 2022-02-02 09:21 | XMS_ITS | Encounter Summary ---
:1965 Author Organization [place] Address [address] [place] [address] Care Team Providers Name Role Phone Selma Good APRN IMPORT CLERK Primary Care Provider [phone] Reason for Visit Reason Comments UTI Encounter Details Date Type Department Care Team Description 07/12/2009 Office Visit [facility] Kleber Lima MD UTI (Urinary Tract Infection) (Primary D x); Pino [address] [facility] Positional Vertigo [address] [place] [address] [place] [phone] [place] [address] Social History Tobacco Use [...] How often do you attend buddhist or nondenominational Patient refused 08/08/2019 services? Do [...] Comments Blood Pressure 128/72 07/12/2009 4:06 PM ASSISTANT PROGRAM DIRECTOR Pulse 68 07/12/2009 4:06 PM ASSISTANT PROGRAM DIRECTOR Temperature 36.8 ??C (98.2 ??F) 07/12/2009 4:06 PM ASSISTANT PROGRAM DIRECTOR Respiratory Rate - - Oxygen Saturation 100% 07/12/2009 4:06 PM ASSISTANT PROGRAM DIRECTOR Inhaled Oxygen Concentration - - Weight 95.7 kg (210 lb 14.4 oz) 07/12/2009 4:06 PM ASSISTANT PROGRAM DIRECTOR Height 157.5 cm (5' 2) 07/12/2009 4:06 PM ASSISTANT PROGRAM DIRECTOR Body Mass Index 38.57 07/12/2009 4:06 PM ASSISTANT PROGRAM DIRECTOR documented in this encounter Progress Notes Kleber [...] ??? Obesity 278.00J ??? Family History of ME (Myocardial Infarction) V17.3Y Past Medical History Diagnosis [...] Kleber Lima MD Internal Medicine and Pediatrics STANT PROGRAM DIRECTOR Anh Winn - 07/12/2009 4:12 PM CST [...] ??? Control/ Protection: Surgical Tubal WYATT Frey STANT PROGRAM DIRECTOR documented in this encounter Nursing Notes 07/12/2009 [...] BP completed using cuff size: yennifer [email or web address], PUBLISHING SYSTEMS ANALYST documented in this encounter Plan of Treatment Not on filedocumented as of this encounter Procedures Procedure Name Priority Date/Time Associated Diagnosis Comme nts HCL UA MICRO IF Routine 07/12/2009 4:24 PM UTI (Urinary Tract Results for this POSITIVE ASSISTANT PROGRAM DIRECTOR Infection) procedure are i n the results section. CL AFF MICRO Routine 07/12/2009 4:24 PM Results f or this EXAM-URINE ASSISTANT PROGRAM DIRECTOR procedure are i n the results section. documented in this encounter Results (ABNORMAL) MICRO EXAM-URINE (07/12/2009 4:24 PM ASSISTANT PROGRAM DIRECTOR) P athologist Signature WBC Urine 5-10 (A) 0 - 2 /HPF [facility] RBC Urine O - 2 0 - 2 /HPF [facility] Squamous EPI Few FEW /LPF [facility] Bacteria Urine Few (A) NEG /HPF [facility] Specimen Anatomical Collection Method Collection Time Receive d Time (Source) Location / / Volume Laterality 07/12/2009 4:24 PM 0 4:28 ASSISTANT PROGRAM DIRECTOR PM ASSISTANT PROGRAM DIRECTOR Kleber Lima MD LABORATORY Performing Organization Address City/State/ZIP Code Phon e Number [address] [address] [facility] (ABNORMAL) UA MICRO IF POSITIVE (07/12/2009 4:24 PM ASSISTANT PROGRAM DIRECTOR) [facility] gist Method Time Signature Color Urine Yellow [facility] Appearance Urine Slightly [place] [place] Cloudy [facility] Glucose Urine Negative NEG mg/dL [facility] Bilirubin Urine Negative NEG [facility] Ketones Urine Negative NEG mg/dL [facility] Specific [place] 1.015 1.003 - [facility] [place] Urine 1.035 [facility] Blood Urine Negative NEG [facility] pH Urine 5.5 5.0 - 7.[address] [place] [place] [address] [facility] Protein Albumin Negative NEG mg/dL [facility] Urine [facility] Urobilinogen 0.2 0.2 - 1.0 [place] [place] Urine EU/dL [facility] Nitrite Urine Negative NEG [facility] Leukocyte Small (A) NEG [facility] [place] Esterase Urine [facility] Source Midstream [facility] [place] Urine [facility] Specimen Anatomical Collection Method Collection Time Receive d Time (Source) Location / / Volume Laterality 07/12/2009 4:24 PM 0 4:28 ASSISTANT PROGRAM DIRECTOR PM ASSISTANT PROGRAM DIRECTOR Kleber Lima MD LABORATORY Performing Organization Address City/State/ZIP Code Phon e Number [facility] [address] [facility] [place] [address] [facility] documented in this encounter Visit Diagnoses Diagnosis UTI (urinary tract infection) - Primary Urinary tract infection, site not specif ied Positional vertigo Benign paroxysmal positional vertigo documented in this encounter Care Teams Parish Visitor Relationship Specialty Start Date End Date Danilo-Selma Mccoy, DIRECTOR OF GLOBAL SALES IMPORT CLERK PCP - General 04/09/08 04/07/[address] [facility] [place] [address] documented as of this encounter
--- OUTSIDE RECORDS SUMMARY | 2022-02-02 09:21 | XMS_ITS | Encounter Summary ---
:1965 Author Organization [place] Address [address] [place] [address] Care Team Providers Name Role Phone Selma Good APRN WATER RESOURCE AGENT Primary Care Provider [phone] Reason for Visit [facility] Physical Therapy (Routine) - Closed Specialty Diagnoses / Procedures Referred By Contact Refer red To Contact Rayo Whitehead, MARÍA [facility] [address] [place] [address] Referral ID Status Reason Start Date Expiration Date Visits Requ ested Visits Authorized HP - FOOT Closed 01/03/2010 06/10/2010 12 10 Encounter Details Date Type Department Care Team Description 02/07/2010 Therapy Visit [facility] Athletic Medicine - Sal Gonzales Enthesopathies (Primary [place] [facility] [address] Dx) Therapy [place] [address] [place] [address] [place] [address] [phone] Social History Tobacco Use Types Packs/Day Years [...] How often do you attend yazidi or muslim Patient refused 08/08/2019 services? Do you belong to any clubs or organizations such as No 08/08/2019 yazidi groups, cortical.ios, fraRevon Systems or athletic groups, or school groups? [...] 5:44 PM Other Peripheral EXERCISES CDT Enthesopathies [facility] ELECTRIC CURRENT Routine 02/07/2010 5:44 PM Other Peripher al THERAPY CDT Enthesopathies documented in this encounter Visit Diagnoses Diagnosis Other peripheral enthesopathies - Primar y documented in this encounter Care Teams Herb Counselor Relationship Specialty Start Date End Date Selma Good, DIE FITTER WATER RESOURCE AGENT PCP - General 04/09/08 04/07/[address] [facility] [address] [place], [place] [address] documented as of this encounter
--- OUTSIDE RECORDS SUMMARY | 2022-02-02 09:21 | XMS_ITS | Encounter Summary ---
:1965 Author Organization [place] Address [address] [place] [address] Care Team Providers Name Role Phone Selma Good APRN ELEMENTARY SCHOOL TEACHER'S AIDE Primary Care Provider [phone] Reason for Visit [facility] Therapy (Routine) - Closed Specialty Diagnoses / Procedures Referred By Contact Refer red To Contact Rayo Whitehead, MARÍA [facility] [address] [facility] [address] [place] [address] Referral ID Status Reason Start Date Expiration Date Visits Requ ested Visits Authorized HP - FOOT Closed 01/03/2010 06/10/2010 12 10 Encounter Details Date Type Department Care Team Description 01/14/2010 Therapy Visit [place] [facility]aciela Dupree, PT Other Peripheral Athletic Medicine - [address] Enthesopathies (Primary [place] [facility] [place] [address] Dx) Therapy [phone] [address]isc[address] Shar[address] (Work) [place] [address] Social History Tobacco Use Types Packs/Day Years [...] How often do you attend lutheran or caodaism Patient refused 08/08/2019 services? Do you belong to any clubs or organizations such as No 08/08/2019 lutheran groups, [employer]s, fraMediaXstream or athletic groups, or school groups? How [...] Sheet for this information) Short term and oysterman goals: (See Goal Flow Sheet for this [...] y documented in this encounter Care Teams Manufacturing Engineering Technician Relationship Specialty Start Date End Date Selma Good APRN ELEMENTARY SCHOOL TEACHER'S AIDE PCP - General 04/09/08 04/07/15 [address] [facility] [place] [address] documented as of this encounter
--- OUTSIDE RECORDS SUMMARY | 2022-02-02 09:21 | XMS_ITS | Encounter Summary ---
:1965 Author Organization [place] Address [address] [place] [address] Care Team Providers Name Role Phone Selma Good APRN [facility] Primary Care Provider Reason for Referral Referral not Required - Closed Specialty Diagnoses / Procedures Referred By Contact Refer red To Contact Diagnoses Pain in the foot Plantar fascial fibromatosis Rayo Whitehead DPM [facility] [address] [facility] Yeyo [address] [place] [address] Referral ID Status Reason Start Date Expiration Date Visits Requ ested Visits Authorized [id number] Closed 12/31/2009 12/31/2009 1 1 Reason for Visit Reason Comments Musculoskeletal Problem right foot arch and heel valdo n. Encounter Details Date Type Department Care Team Description 12/31/2009 Office Visit [facility] Rayo Whitehead Pain in the Foot (Primary Dx); Pino Jacome DPM Plantar Fascial Fibromatosis [address] [place] [address] E [phone] [address] [place], [place] [address] Social History Tobacco Use Types [...] organizations such as No 08/08/2019 protestant groups, [employer], [employer] or athletic groups, or school groups? How [...] using cuff size: large right Liana Roelchris, ARTIFICIAL PEARL MAKER documented in this encounter Plan of Treatment Scheduled Orders Name Type Priority Associated Diagnoses Order S chedule XR Foot Right G/E 3 Views Imaging Or dered: 09/18/2012 documented as of this encounter Procedures Procedure Name Priority Date/Time Associated Diagnosis Comme [facility] Z RT X-RAY FOOT Routine 12/31/2009 [...] fibromatosis documented in this encounter Care Teams Outdoor Adventure Guides Relationship Specialty Start Date End Date Danilo-Selma Mccoy, MANAGER ENTERPRISE CONTENT MANAGEMENT SKINNING MACHINE FEEDER PCP - General 04/09/08 04/07/15 2247 [facility] [place] [address] documented as of this encounter
--- OUTSIDE RECORDS SUMMARY | 2022-02-02 09:21 | XMS_ITS | Encounter Summary ---
:1965 Author Organization [place] Address [address] [place] [address] Care Team Providers Name Role Phone Selma Good APRN [facility] Primary Care Provider [phone] Reason for Visit [facility] Physical Therapy (Routine) - Closed Specialty Diagnoses / Procedures Referred By Contact Refer red To Contact Kylah Howard MD [facility] NEURO LOGY MED [address] [facility] [address] [place] [address] Referral ID Status Reason Start Date Expiration Date Visits Requ ested Visits Authorized HP - NECK Closed 11/15/2009 06/10/2010 8 8 Encounter Details Date Type Department Care Team Description 12/24/2009 Therapy Visit [place] for Vadim Banda P Pietro Cervical Pain Athletic Medicine - Rehab Services (Prima ry Dx) Pino Physical Sports and PT. Therapy [address] [place] [address] [place] [address] [place] [address] [phone] Social History Tobacco Use Types Packs/Day Years [...] How often do you attend mandaen or mu-ism Patient refused 08/08/2019 services? Do you belong to any clubs or organizations such as No 08/08/2019 mandaen groups, [employer], fraternal or athletic groups, or school groups? [...] is being advanced to more complex exercises. INFORMATION SECURITY CONSULTANT/ATC plan: N/A Please refer to the daily flowsheet for treatment today, total treatment time and time spent performing 1:1 timed codes. documented in this encounter Plan of Treatment Not on filedocumented as of this encounter Procedures Procedure Name Priority Date/Time Associated Diagnosis Comme nts [facility] MANUAL THER Routine 12/24/2009 4:44 PM CDT Cervical Pain TECH,1+REGIONS,EA 15 MIN ZZC THERAPEUTIC Routine 12/24/2009 4:44 PM CDT Cervical Pain EXERCISES documented in this encounter Visit Diagnoses Diagnosis Cervical pain - Primary Cervicalgia documented in this encounter Care Teams Accounting Assistant Relationship Specialty Start Date End Date Selma Good APRN CONCESSIONS MANAGER PCP - General 04/09/08 04/07/15 8045 [facility] [place] [address] documented as of this encounter
--- OUTSIDE RECORDS SUMMARY | 2022-02-02 09:21 | XMS_ITS | Encounter Summary ---
:1965 Author Organization [place] Address [address] [place] [address]. [place] [address] Care Team Providers Name Role Phone Selma Good APRN CHARGE MACHINE OPERATOR Primary Care Provider [phone] Encounter Details Date Type Department Care Team Description 06/28/2009 Historic Results [facility] Kylah Howard, [address] [place] [address] [address] [place], [place] [address] NEUROLOGY [phone] [address] [facility] [address] [place], [place] [address] (Wo rk) Social History [...] How often do you attend episcopal or anabaptist Patient refused 08/08/2019 services? Do [...] 06/28/2009 10:45 AM Results for this SCREENING DEDICATED LOCAL TRUCK DRIVER procedure are i n the results section. documented in this encounter Results (ABNORMAL) Vitamin D deficiency screening (06/28/2009 10:45 AM DEDICATED LOCAL TRUCK DRIVER) P athologist Signature 25 OH Vit D2 <5 ug/L MIS[place] 25 OH Vit D3 21 ug/L MIS[facility] 25 OH Vit D <26 (L) 30 - 75 [facility] total ug/L Comment: Season, race, dietary intake, and treatm ent affect the concentration of 79-bldhbns-Czjlwig D. Values may decrea se during winter months and increase during summer months. Values less than 30 ug/L may indicate Vitamin D deficiency. Specimen Anatomical Collection Method Collection Time Receive d Time (Source) Location / / Volume Laterality 06/28/2009 10:45 06/28/2009 AM DEDICATED LOCAL TRUCK DRIVER 10:42 AM DEDICATED LOCAL TRUCK DRIVER Kylah Howard MD LAB - BLOOD ORDERABLES Performing Organization Address City/State/ZIP Code Phon e Number MISYS documented in this encounter Visit Diagnoses Not on filedocumented in this encounter Care Teams Physician President Relationship Specialty Start Date End Date Danilo-Selma Mccoy, STORAGE BATTERY INSPECTOR AND TESTER CHARGE MACHINE OPERATOR PCP - General 04/09/08 04/07/15 3305 [facility] [place] [address] documented as of this encounter
--- OUTSIDE RECORDS SUMMARY | 2022-02-02 09:21 | XMS_ITS | Encounter Summary ---
:1965 Author Organization [place] Address [address] [place] [address] Care Team Providers Name Role Phone Selma Good APRN [facility] Primary Care Provider [phone] Reason for Visit [facility] Physical Therapy (Routine) - Closed Specialty Diagnoses / Procedures Referred By Contact Refer red To Contact Kylah Howard MD [facility]IN[facility] OF NE[facility]O LOGY MED [address] [facility] [address] [place] [address] Referral ID Status Reason Start Date Expiration Date Visits Requ ested Visits Authorized HP - NECK Closed 11/15/2009 06/10/2010 8 8 Encounter Details Date Type Department Care Team Description 12/20/2009 Therapy Visit [place] for Sukhi Rust, P T Cervical Pain Athletic Medicine - [facility] Pino (Primary Dx) Pino Physical [address] [place] [address] [place] [address] [place] [phone] Social History Tobacco Use Types Packs/Day [...] How often do you attend shinto or mu-ism Patient refused 08/08/2019 services? Do you belong to any clubs or organizations such as No 08/08/2019 shinto groups, [employer], [employer]iliman[employer] or athletic groups, or school groups? How [...] Diagnosis Comme [facility] ZC MANUAL THER Routine 12/20/2009 4:39 PM CDT Cervical Pain TECH,1+REGIONS,EA 15 MIN ZZC THERAPEUTIC Routine 12/20/2009 4:39 PM CDT Cervical Pain EXERCISES documented in this encounter Visit Diagnoses Diagnosis Cervical pain - Primary Cervicalgia documented in this encounter Care Teams Night Nurse Relationship Specialty Start Date End Date Danilo-Selma Mccoy, BRIM ROUNDER METAL HANGING SUPERVISOR PCP - General 04/09/08 04/07/15 5268 [facility] [place] [address] documented as of this encounter
--- OUTSIDE RECORDS SUMMARY | 2022-02-02 09:21 | XMS_ITS | Encounter Summary ---
:1965 Author Organization [place] Address [address] [place] [address] Care Team Providers Name Role Phone Selma Good ASSISTANT CLINICAL DIRECTOR CONSULTING 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 Primary Care Provider [phone] Reason for Referral Referral not Required - Closed Specialty Diagnoses / Procedures Referred By Contact Refer red To Contact Diagnoses Neck pain Selma Good [facility] ASSISTANT CLINICAL DIRECTOR CONSULTING 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 CNTR [address] [place] [address] [place] [phone] Referral ID Status Reason Start Date Expiration Date Visits Requ ested Visits Authorized [id number] Closed 01/12/2010 01/12/2010 1 1 - Closed Specialty Diagnoses / Procedures Referred By Contact Refer red To Contact Diagnoses Prediabetes Selma Good, ASSISTANT CLINICAL DIRECTOR CONSULTING 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 [address] [facility] [place] [address] Referral ID Status Reason Start Date Expiration Date Visits Requ ested Visits Authorized [id number] Closed 01/12/2010 01/12/2010 1 1 eferral not Required - Closed Specialty Diagnoses / Procedures Referred By Contact Refer red To Contact Diagnoses Insomnia Danilo-Steer, Selma J, [facility] SLEEP ASSISTANT CLINICAL DIRECTOR [facility] 3[address] [facility] [address] [place] [address] [place] [id number] Referral ID Status Reason Start Date Expiration Date Visits Requ ested Visits Authorized [id number] Closed 01/12/2010 01/12/2010 1 1 Reason for Visit Reason Comments Physical Pre Visit Planning - Done Encounter Details Date Type Department Care Team Description 01/12/2010 Office Visit [facility] Florentino, Routine Gen eral Medical Examination at a Health Care Facility (Primary Dx); Pino Angeles APRN Insomnia; [address] [facility] Prediabetes; [place] [phone] [place] [address] Bruises Easily; [phone] [facility] Breast Cancer Screening; [place] [address] Neck Pain; [phone] Chronic Fatigue (Work) Social History Tobacco Use [...] How often do you attend tenriism or evangelical Patient refused 08/08/2019 services? Do [...] Body Mass Index 37.58 07/12/2009 4:06 PM AUTOMATIC PINSETTER ADJUSTER documented in this encounter Patient Instructions Patient [...] ultrasound instead for screening. Sleep Issues: call [facility] at [phone], and schedule a sleep study. They will forward your results to me and afterward, schedule an appointment with me to discuss your results and a plan. DON'T FORGET: Please let Dr. Martinez know about your sleeping issues at neurology follow up. Prediabetes: Schedule an appointment with Arianna, the telehealth nurse educator to discuss dietary Breast center: Please call them and schedule a consultation appointment re: breast reduction surgeryin relation to chronic neck pain and headaches. Lab work results will be emailed by [facility] or mailed to your home. Your prescriptions [...] list. All Histories reviewed and updated in [facility]. ROS: C: NEGATIVE for fever, chills, change [...] ultrasound instead for screening. Sleep Issues: call [facility] at [phone], and schedule a sleep study. They will forward your results to me and afterward, schedule an appointment with me to discuss your results and a plan. DON'T FORGET: Please let Dr. Martinez know about your sleeping issues at neurology follow up. Prediabetes: Schedule an appointment with Arianna, the telehealth nurse educator to discuss dietary Breast center: Please call them and schedule a consultation appointment re: breast reduction surgeryin relation to chronic neck pain and headaches. Lab work results will be emailed by [facility] or mailed to your home. Your prescriptions [...] is no t available. Selma Good APRN CONSULTING 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 REFERRAL CRP, INFLAMMATION (01/12/2010 5:00 PM CDT) Analysis Performed At Path logist Time Signature CRP Inflammation 7.9 0.0 - 8.0 [facility] mg/L [facility] LABS Specimen Anatomical Collection Method Collection Time Receive d Time (Source) Location / / Volume Laterality 01/12/2010 5:00 PM 0 5:03 CDT PM CDT Selma Good APRN CONSULTING 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 LABORATORY Performing Organization Address City/State/ZIP Code Phon e Number [facility] [address] [place] [address] [facility] LABS VITAMIN D DEFICIENCY SCREENING (01/12/2010 5:00 PM CDT) Component Value Ref Test Analysis Performed At [facility] gist Range Method Time Signature 25 OH Vit D2 <5 ug/L [facility] LABS 25 OH Vit D3 32 ug/L [facility] 25 OH Vit D <37 30 - 75 [facility] total Season, race, dietary intake, and treatm ent affect the concentration of ug/L UNIVERSITY 10-fwfnucy-Yosczib D. Values may decrease during gordon er months and increase CAMPUS LABS during summer months. Values less than 30 ug/L may indicate Vitamin D deficiency. Specimen Anatomical Collection Method Collection Time Receive d Time (Source) Location / / Volume Laterality 01/12/2010 5:00 PM 0 5:03 CDT PM CDT Selma Good APRN CONSULTING 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 LABORATORY Performing Organization Address City/State/ZIP Code Phon e Number [facility] [address] [place] [address] [facility]S PTT THROMBOPLAS TIME PARTIAL (01/12/2010 5:00 PM CDT) P athologist Signature PTT 27 22 - 37 sec [facility] LAB Specimen Anatomical Collection Method Collection Time Receive d Time (Source) Location / / Volume Laterality 01/12/2010 5:00 PM 0 5:03 CDT PM CDT Selma Good APRN CONSULTING 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 LABORATORY Performing Organization Address City/State/ZIP Code Phon e Number [facility] [address] [place] [address] [facility] LAB CBC WITH PLATELETS, DIFF (01/12/2010 5:00 PM CDT) Patholo gist Method Time Signature WBC 7.9 4.0 - [facility] 11.0 [facility] 10e9/L LAB RBC Count 4.51 3.8 - 5.2 [facility] 10e12/L [facility] LAB Hemoglobin 13.6 11.7 - [facility] 15.7 g/dL [facility] LAB Hematocrit 41.7 35.0 - [facility] 47.0 % [facility] LAB MCV 93 78 - 100 [facility] fl [facility] LAB MCH 30.2 26.5 - [facility] 33.0 pg [facility] LAB MCHC 32.6 31.5 - [facility] 36.5 g/dL [facility] LAB RDW 12.8 10.0 - [facility] 15.0 % [facility] LAB Platelet Count 259 150 - 450 [facility] 10e9/L [facility] LAB Diff Method Automated [facility] Method [facility] LAB % Neutrophils 61 40 - 75 % [facility] LAB % Lymphocytes 29 20 - 48 % [facility] % Monocytes 8 0 - 12 % [facility] % Eosinophils 1 0 - 6 % [facility] % Basophils 1 0 - 2 % [facility] Absolute 4.8 1.6 - 8.3 [facility] Neutrophil 10e9/L [facility] Absolute 2.3 0.8 - 5.3 [facility] Lymphocytes 10e9/L [facility] Absolute 0.7 0.0 - 1.3 [facility] Monocytes 10e9/L [facility] Absolute 0.1 0.0 - 0.7 [facility] Eosinophils 10e9/L [facility] Absolute 0.0 0.0 - 0.2 [facility] Basophils 10e9/L [facility] Specimen Anatomical Collection Method Collection Time Receive d Time (Source) Location / / Volume Laterality 01/12/2010 5:00 PM 0 5:03 CDT PM CDT Selma Good APRN CONSULTING 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 LABORATORY Performing Organization Address City/State/ZIP Code Phon e Number [facility] [address] [place] [address] [facility] TSH W/FREE T4 REFLEX (01/12/2010 5:00 PM CDT) P athologist Signature TSH 1.63 0.4 - 5.0 [facility] mU/L [facility] LAB Specimen Anatomical Collection Method Collection Time Receive d Time (Source) Location / / Volume Laterality 01/12/2010 5:00 PM 0 5:03 CDT PM CDT Selma Good APRN CONSULTING 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 LABORATORY Performing Organization Address City/State/ZIP Code Phon e Number [facility] [address] [place] [address] [facility] (ABNORMAL) GLUCOSE (01/12/2010 5:00 PM CDT) P athologist Signature Glucose 149 (H) 60 - 99 [facility] mg/dL CLINIC LAB Specimen Anatomical Collection Method Collection Time Receive d Time (Source) Location / / Volume Laterality 01/12/2010 5:00 PM 0 5:03 CDT PM CDT Selma Good APRN, CNP LABORATORY Performing Organization Address City/State/ZIP Code Phon e Number [facility] [address] [employer] [place] [address] [facility] documented in this encounter Visit Diagnoses Diagnosis Routine general medical examination at a [facility] care facility - Primary Insomnia Insomnia, unspecified Prediabetes Other abnormal glucose Bruises easily Other symptoms involving skin and integu mentary tissues Neck pain Cervicalgia Chronic fatigue Other malaise and fatigue documented in this encounter Care Teams Pharmacy Operations Manager Relationship Specialty Start Date End Date Selma Good APRN CNP PCP - General 04/09/08 04/07/15 70[address] [facility] [place] [address] documented as of this encounter
--- OUTSIDE RECORDS SUMMARY | 2022-02-02 09:21 | XMS_ITS | Encounter Summary ---
:1965 Author Organization [place] Address [address] [place] [address] Care Team Providers Name Role Phone Selma Good APRN RECTIFYING ATTENDANT Primary Care Provider [phone] Reason for Visit Reason Comments Diabetes Education Encounter Details Date Type Department Care Team Description 01/26/2010 Office Visit [facility] Arianna Caldwell Prediabetes (Primary Dx); XX RESIGNED XX DM w/o Complication Type II, [place] [address] (Wo rk) Social History Tobacco [...] How often do you attend gnosticist or latter-day Patient refused 08/08/2019 services? Do [...] Body Mass Index 37.11 07/12/2009 4:06 PM DRIVER TRAINER documented in this encounter Patient Instructions Patient [...] up: I will follow up with my life educator: At classes or in a couple of [...] since last visit Language(s) spoken at home: Thai ROS: Patient experiencing the following diabetes related [...] uncontrolled documented in this encounter Care Teams Interpretive Naturalist Relationship Specialty Start Date End Date Danilo-Selma Mccoy, SUPERVISOR SAFETY DEPOSIT RECTIFYING ATTENDANT PCP - General 04/09/08 04/07/15 [address] [facility] [place] [address] documented as of this encounter
--- OUTSIDE RECORDS SUMMARY | 2022-02-02 09:21 | XMS_ITS | Encounter Summary ---
:1965 Author Organization [facility] Address [address] [place] [address] Care Team Providers Name Role Phone Selma Good APRN CONTEMPORARY OR MODERN DANCER Primary Care Provider [phone] Reason for Visit [facility] Physical Therapy (Routine) - Closed Specialty Diagnoses / Procedures Referred By Contact Refer red To Contact Rayo Whitehead, MARÍA [facility] [address] [facility] [address] MED [address] [place] [address] Referral ID Status Reason Start Date Expiration Date Visits Requ ested Visits Authorized HP - FOOT Closed 01/03/2010 06/10/2010 12 10 Encounter Details Date Type Department Care Team Description 01/27/2010 Therapy Visit [place] for Graciela Dupree, PT Other Peripheral Athletic Medicine - [address] Enthesopathies (Primary [facility] [place] [address] Dx) Therapy [phone] [address] (Work) [place] [address] Social History Tobacco Use Types Packs/Day Years [...] How often do you attend rastafarian or congregational Patient refused 08/08/2019 services? Do you belong to any clubs or organizations such as No 08/08/2019 rastafarian groups, AFTER-MOUSEs, fraJule Game or athletic groups, or school groups? How [...] Procedure Name Priority Date/Time Associated Diagnosis Comme [facility] ZZC THERAPEUTIC Routine 01/27/2010 4:19 PM Other Peripheral EXERCISES CDT Enthesopathies Z ELECTRIC CURRENT Routine 01/27/2010 4:19 PM Other Peripher al THERAPY CDT Enthesopathies [facility] MANUAL THER Routine 01/27/2010 4:19 PM Other Peripheral TECH,1+REGIONS,EA 15 CDT Enthesopathies MIN documented in this encounter Visit Diagnoses Diagnosis Other peripheral enthesopathies - Primar y documented in this encounter Care Teams Tip Puncher Relationship Specialty Start Date End Date Selma Good, GENERAL REPAIR MECHANIC CONTEMPORARY OR MODERN DANCER PCP - General 04/09/08 04/07/[address] [place] [address] documented as of this encounter
--- OUTSIDE RECORDS SUMMARY | 2022-02-02 09:21 | XMS_ITS | Encounter Summary ---
:1965 Author Organization [facility] Address [address] [place] [address] Care Team Providers Name Role Phone Selma Good APRN RECONSTRUCTIVE SURGEON Primary Care Provider [phone] Reason for Visit Reason Comments Cough cough, st x 4 days Encounter Details Date Type Department Care Team Description 11/17/2009 Office Visit [facility] Ashli Montoya C ough (Primary Dx); Care ACUTE PHARYNGITIS [address] [place] [address] [place] [phone] [place] [phone] (Wo rk) Social History Tobacco Use Types [...] How often do you attend cheondoism or faith Patient refused 08/08/2019 services? Do [...] cough and pharyngitis PLAN: See orders in [facility] for prednisone burst, albuterol MDI, and Tessalon. [...] completed using cuff size: large Blank [place] TOP FORMER documented in this encounter Plan of Treatment [...] Component Value Ref Test Analysis Performed At [facility] gist Range Method Time Signature Specimen Throat [place] Description [facility] Culture Micro No Beta [place] Streptococcus [facility] isolated LAB Micro Report FINAL 11/19/2009 [place] Status [facility] Specimen Anatomical Collection Method Collection Time Receive d Time (Source) Location / / Volume Laterality 11/17/2009 7:28 PM 0 7:33 CDT PM CDT Ashli Tamez MD LABORATORY Performing Organization Address City/[facility]/ZIP Code Phon e Number [facility] [address] [facility] [place] [address] [phone] [facility] STREP GROUP A ANTIGEN (RAPID) (11/17/2009 7:28 PM CDT) Component Value Ref Test Analysis Performed At [facility] ThriveOn Range Method Time Signature Specimen Throat [place] Description [facility] Rapid Strep A NEGATIVE: No Group A strepto coccal antigen detected by immunoassay, await [place] Screen culture report. [facility] Micro Report FINAL 11/17/2009 [place] Status [facility] Specimen Anatomical Collection Method Collection Time Receive d Time (Source) Location / / Volume Laterality 11/17/2009 7:28 PM 0 7:33 CDT PM CDT Ashli Tamez MD LABORATORY Performing Organization Address City/[facility]/ZIP Code Phon e Number [facility] [address] [place] [address] [phone] [facility] documented in this encounter Visit Diagnoses Diagnosis Cough - Primary Acute pharyngitis documented in this encounter Care Teams Government Relations Director Relationship Specialty Start Date End Date Danilo-Selma Mccoy APRN RECONSTRUCTIVE SURGEON PCP - General 04/09/08 04/07/15 [address] [facility] [place] [address] documented as of this encounter
--- OUTSIDE RECORDS SUMMARY | 2022-02-02 09:21 | XMS_ITS | Encounter Summary ---
:1965 Author Organization [place] Address [address] [place] [address] Care Team Providers Name Role Phone Selma Good APRN NAPKIN MACHINE OPERATOR Primary Care Provider [phone] Reason for Visit [facility] Physical Therapy (Routine) - Closed Specialty Diagnoses / Procedures Referred By Contact Refer red To Contact Rayo Whitehead, MARÍA [facility] [address] [facility] [address] [place] [address] Referral ID Status Reason Start Date Expiration Date Visits Requ ested Visits Authorized HP - FOOT Closed 01/03/2010 06/10/2010 12 10 Encounter Details Date Type Department Care Team Description 01/20/2010 Therapy Visit [place] for Janice Dc, PT Other Peripheral Athletic Medicine - [address] Enthesopathies (Primary [place] Physical [place] [address] Dx) Therapy [phone] [address] (Work) [place] [id number] Social History Tobacco Use Types Packs/Day Years [...] How often do you attend hinduism or cheondoism Patient refused 08/08/2019 services? Do you belong to any clubs or organizations such as No 08/08/2019 hinduism groups, [employer], fraNetero or athletic groups, or school groups? How [...] y documented in this encounter Care Teams Department Head [employer] Relationship Specialty Start Date End Date Selma Good, SEAN NAPKIN MACHINE OPERATOR PCP - General 04/09/08 04/07/[address] [place] [address] documented as of this encounter
--- OUTSIDE RECORDS SUMMARY | 2022-02-02 09:21 | XMS_ITS | Encounter Summary ---
:1965 Author Organization [place] Address [address] [place] [address] Care Team Providers Name Role Phone Selma Good APRN TRIPE COOKER Primary Care Provider [phone] Reason for Visit [facility] Physical Therapy (Routine) - Closed Specialty Diagnoses / Procedures Referred By Contact Refer red To Contact Rayo Whitehead, MARÍA [facility] [address] [facility] E MED [address] [place] [address] Referral ID Status Reason Start Date Expiration Date Visits Requ ested Visits Authorized HP - FOOT Closed 01/03/2010 06/10/2010 12 10 Encounter Details Date Type Department Care Team Description 01/18/2010 Therapy Visit [place] for Graciela Dupree, PT Other Peripheral Athletic Medicine - [address] Enthesopathies (Primary [place] Physical [place] [address] Dx) Therapy [phone] [address] (Work) [place] [address] Social History Tobacco Use Types Packs/Day Years [...] organizations such as No 08/08/2019 synagogue groups, [employer], fraYellow [employer] or athletic groups, or school groups? How [...] documented in this encounter Care Teams Store Shopper Relationship Specialty Start Date End Date Selma Good, LINE MAINTENANCE SUPERVISOR TRIPE COOKER PCP - General 04/09/08 04/07/[address] [place], [place] [address] documented as of this encounter
--- OUTSIDE RECORDS SUMMARY | 2022-02-02 09:21 | XMS_ITS | Encounter Summary ---
:1965 Author Organization [place] Address [address] [place] [address] Care Team Providers Name Role Phone Selma Good APRN NIP WRAPPER Primary Care Provider [phone] Reason for Visit [facility] Physical Therapy (Routine) - Closed Specialty Diagnoses / Procedures Referred By Contact Refer red To Contact Rayo Rouse PA-C [facility] [place] [address] [place] [address] Referral ID Status Reason Start Date Expiration Date Visits Requ ested Visits Authorized HP - ELBOW Closed 03/22/2009 06/10/2009 17 15 Encounter Details Date Type Department Care Team Description 05/17/2009 Therapy Visit [place] for Graciela Dupree PT Lateral Epicondylitis Athletic Medicine - [address] of Elbow (Primary Dx) [place] [address] Therapy [phone] [facility] Priscilla Sharpe (Work) [place] [address] Social History Tobacco Use Types Packs/Day Years [...] How often do you attend anabaptism or judaism Patient refused 08/08/2019 services? Do [...] Medicaid as primary or secondary insurance? NO CONTROLLER documented in this encounter Plan of Treatment Not on filedocumented as of this encounter Procedures Procedure Name Priority Date/Time Associated Diagnosis Comme nts [facility] MANUAL THER Routine 05/17/2009 5:01 PM Lateral Epicondylit is of TECH,1+REGIONS,EA 15 PEST CONTROLLER Elbow MIN ZZC THERAPEUTIC Routine 05/17/2009 5:01 PM Lateral Epicondylit is of EXERCISES PEST CONTROLLER Elbow documented in this encounter Visit Diagnoses Diagnosis Lateral epicondylitis of elbow - Primary Lateral epicondylitis of elbow documented in this encounter Care Teams Ditch Digger Relationship Specialty Start Date End Date Danilo-Selma Mccoy, FINANCIAL SERVICES EDUCATION CONSULTANT NIP WRAPPER PCP - General 04/09/08 04/07/[address] [facility] [address] [place], [place] [address] documented as of this encounter
--- OUTSIDE RECORDS SUMMARY | 2022-02-02 09:21 | XMS_ITS | Encounter Summary ---
:1965 Author Organization [place] Address [address] [place] [address] Care Team Providers Name Role Phone Selma Good APRN RELAYS DRAFTSPERSON Primary Care Provider [phone] Reason for Visit [facility] Physical Therapy (Routine) - Closed Specialty Diagnoses / Procedures Referred By Contact Refer red To Contact Rayo Rouse PA-C [facility] [place] [address] [place], [place] [address] Referral ID Status Reason Start Date Expiration Date Visits Requ ested Visits Authorized HP - ELBOW Closed 03/22/2009 06/10/2009 17 15 Encounter Details Date Type Department Care Team Description 06/01/2009 Therapy Visit [place] for Vadim Banda P T Lateral Epicondylitis Athletic Medicine - [facility] Services [facility] (Primary Dx) [facility]. Therapy [address] [place] [address] [place] [address] [place] [address] [phone] Social History Tobacco Use Types Packs/Day Years [...] How often do you attend evangelical or faith Patient refused 08/08/2019 services? Do [...] Notes Margot Miller - 07/05/2009 5:28 PM HAZARDOUS MATERIALS HANDLER Addended by: MARGOT MILLER on: 07/05/2009 5:28:17 PM Modules accepted: Orders RDOUS MATERIALS HANDLER Margot Miller - 07/05/2009 5:27 PM CST Megan Choi completed therapy on 06-01-09. Please refer to discharge report. RDOUS MATERIALS HANDLER Vadim Banda - 06/01/2009 4:19 PM CST Please refer to the daily flowsheet for treatment today and total treatment time. Does this patient have Medicare or Medicaid as primary or secondary insurance? NO RDOUS MATERIALS HANDLER documented in this encounter Plan of Treatment Not on filedocumented as of this encounter Procedures Procedure Name Priority Date/Time Associated Diagnosis Comme nts ZC MANUAL THER Routine 06/01/2009 4:21 PM Lateral Epicondylit is of TECH,1+REGIONS,EA 15 HAZARDOUS MATERIALS HANDLER Elbow MIN ZZC THERAPEUTIC Routine 06/01/2009 4:21 PM Lateral Epicondylit is of EXERCISES HAZARDOUS MATERIALS HANDLER Elbow documented in this encounter Visit Diagnoses Diagnosis Lateral epicondylitis of elbow - Primary Lateral epicondylitis of elbow documented in this encounter Care Teams Golf Club Head Former Relationship Specialty Start Date End Date Danilo-Selma Mccoy, FUND ACCOUNTANT RELAYS DRAFTSPERSON PCP - General 04/09/08 04/07/15 [address] [facility] [place] [address] documented as of this encounter
--- OUTSIDE RECORDS SUMMARY | 2022-02-02 09:21 | XMS_ITS | Encounter Summary ---
:1965 Author Organization [place] Address [address] [place] [address] Care Team Providers Name Role Phone Selma Good APRN [facility] Primary Care Provider [phone] Reason for Visit [facility] Physical Therapy (Routine) - Closed Specialty Diagnoses / Procedures Referred By Contact Refer red To Contact Kylah Howard MD [facility]IC [facility] CLINIC OF NEURO LOGY MED [address] [facility] [address] [place] [address] Referral ID Status Reason Start Date Expiration Date Visits Requ ested Visits Authorized HP - NECK Closed 11/15/2009 06/10/2010 8 8 Encounter Details Date Type Department Care Team Description 12/06/2009 Therapy Visit [place] for Sukhi Rust, P T Cervical Pain Athletic Medicine - [facility] [place] (Primary Dx) [place] Physical [address] [place] [address] [place] [address] [place] [phone] Social History Tobacco Use Types Packs/Day [...] organizations such as No 08/08/2019 congregation groups, Topics, fraTribi [employer] Private or athletic groups, or school groups? How [...] is being advanced to more complex exercises. NUTRITION INTERN/ATC plan: N/A Please refer to the daily [...] Cervicalgia documented in this encounter Care Teams Blanker Operator Relationship Specialty Start Date End Date Selma Good APRN KEYBOARD INSTRUMENT REPAIRER PCP - General 04/09/08 04/07/15 [address] [facility] [place] [address] documented as of this encounter
--- OUTSIDE RECORDS SUMMARY | 2022-02-02 09:21 | XMS_ITS | Encounter Summary ---
:1965 Author Organization [place] Address [address] [place] [address] Care Team Providers Name Role Phone Selma Good APRN BISQUE CLEANER Primary Care Provider [phone] Reason for Visit [facility] Physical Therapy (Routine) - Closed Specialty Diagnoses / Procedures Referred By Contact Refer red To Contact Rayo Rouse PA-C [facility] [place] [address] [address] [place] [address] Referral ID Status Reason Start Date Expiration Date Visits Requ ested Visits Authorized HP - ELBOW Closed 03/22/2009 06/10/2009 17 15 Encounter Details Date Type Department Care Team Description 04/16/2009 Therapy Visit [place] for Graciela Dupree PT Lateral Epicondylitis Athletic Medicine - [address] of Elbow (Primary Dx) [place] [address] Therapy [phone] [facility] Priscilla Sharpe (Work) [place] [address] Social History Tobacco Use Types Packs/Day Years [...] How often do you attend advent or episcopalian Patient refused 08/08/2019 services? Do [...] Medicaid as primary or secondary insurance? NO LEAF LABORER documented in this encounter Plan of Treatment Not on filedocumented as of this encounter Procedures Procedure Name Priority Date/Time Associated Diagnosis Comme nts Z MANUAL THER Routine 04/16/2009 4:31 PM Lateral Epicondylit is of TECH,1+REGIONS,EA 15 GOLD LEAF LABORER Elbow MIN ZZC THERAPEUTIC Routine 04/16/2009 4:31 PM Lateral Epicondylit is of EXERCISES GOLD LEAF LABORER Elbow Z ULTRASOUND THERAPY Routine 04/16/2009 4:31 PM Lateral Epic ondylitis of GOLD LEAF LABORER Elbow documented in this encounter Visit Diagnoses Diagnosis Lateral epicondylitis of elbow - Primary Lateral epicondylitis of elbow documented in this encounter Care Teams Administrative Support Clerk Relationship Specialty Start Date End Date Danilo-Selma Mccoy, MANAGER ADVANCED BISQUE CLEANER PCP - General 04/09/08 04/07/15 [address] [facility] [place] [address] documented as of this encounter
--- OUTSIDE RECORDS SUMMARY | 2022-02-02 09:21 | XMS_ITS | Encounter Summary ---
:1965 Author Organization [place] Address [address] [place] [address] Care Team Providers Name Role Phone Selma Good APRN [facility] Primary Care Provider [phone] Reason for Visit [facility] Physical Therapy (Routine) - Closed Specialty Diagnoses / Procedures Referred By Contact Refer red To Contact Kylah Howard MD [facility]IC [facility] CLINIC OF NEURO LOGY MED [address] [facility] [address] [place] [address] Referral ID Status Reason Start Date Expiration Date Visits Requ ested Visits Authorized HP - NECK Closed 11/15/2009 06/10/2010 8 8 Encounter Details Date Type Department Care Team Description 11/24/2009 Therapy Visit [place] for Sukhi Rust, P T Cervical Pain Athletic Medicine - [facility] [place] (Primary Dx) [place] Physical [address] [place] [address] [place] [address] [place] [phone] Social History Tobacco Use Types Packs/Day [...] How often do you attend sikh or episcopal Patient refused 08/08/2019 services? Do you belong to any clubs or organizations such as No 08/08/2019 sikh groups, At[employer], fraJamLegend or athletic groups, or school groups? How [...] Sheet for this information) Short term and FCI goals: (See Goal Flow Sheet for this [...] Cervicalgia documented in this encounter Care Teams Interlibrary Loan Specialist Relationship Specialty Start Date End Date Danilo-Selma Mccoy APRN POLITICAL ORGANIZER PCP - General 04/09/08 04/07/15 [address] [facility] [place] [address] documented as of this encounter
--- OUTSIDE RECORDS SUMMARY | 2022-02-02 09:21 | XMS_ITS | Encounter Summary ---
:1965 Author Organization [place] Address [address] [place] [address]. [place] [address] Care Team Providers Name Role Phone Selma Good APRN CARBIDE GRINDER Primary Care Provider [phone] Encounter Details Date Type Department Care Team Description 03/11/2010 Outpatient Visit [facility] Ricardo Sotelo [facility] PA-C Results [address] [facility] [address] [place] [address] (Wo rk) Social History Tobacco Use Types [...] How often do you attend spiritism or baptist Patient refused 08/08/2019 services? Do [...] of nocturnal enuresis as a child. Megan Nyssa Sleepiness Score is 12/24 consistent with mild [...] allowed in her bed. 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 She denies having ever smoked cigarettes. Denies [...] 1. Polysomnogram split night with titration at [facility]. Pathophysiology, risk factors, and implications of untreated [...] pamphlet on sleep hygiene produced by the [employer] and was encouraged [...] and coordination of care. Part two job #[id number] p.m. a.m. mary kate Electronically signed on 03/18/2010 12:44 by RICARDO SOTELO PA-C MT: mary kate Name: MEGAN CHOI Account: [id number] : 1965 Visit Date: 03/11/2010 Document: [id number] cc: Selma Good LIBRARY SERVICES ASSISTANT documented in this encounter Plan of Treatment Not on filedocumented as of this encounter Visit Diagnoses Not on filedocumented in this encounter Care Teams Manager Access Relationship Specialty Start Date End Date Selma Good, SEAN CARBIDE GRINDER PCP - General 04/09/08 04/07/15 [address] [facility] [place] [address] documented as of this encounter
--- OUTSIDE RECORDS SUMMARY | 2022-02-02 09:21 | XMS_ITS | Encounter Summary ---
:1965 Author Organization [place] Address [address] [place] [address] Care Team Providers Name Role Phone Selma Good APRN RESTAURANT MAINTENANCE TECHNICIAN Primary Care Provider [phone] Reason for Visit Reason Onset Date Comments Headache 12/16/2009 send migraine letter 1 month-01/15/10 Encounter Details Date Type Department Care Team Description 12/16/2009 Telephone [facility] Eag adarsh Good, Headache (send migraine [address] [place] APRN RESTAURANT MAINTENANCE TECHNICIAN letter 1 month-01/15/10 ) [place] [address] [facility] [phone] [facility] [place] [id number] (Wo rk) Social History Tobacco Use Types [...] How often do you attend faith or gnosticist Patient refused 08/08/2019 services? Do [...] on filedocumented in this encounter Care Teams Fabric Pattern Grader Relationship Specialty Start Date End Date Danilo-Selma Mccoy APRN RESTAURANT MAINTENANCE TECHNICIAN PCP - General 04/09/08 04/07/[address] [facility] [place] [address] documented as of this encounter
--- OUTSIDE RECORDS SUMMARY | 2022-02-02 09:21 | XMS_ITS | Encounter Summary ---
:1965 Author Organization [place] Address [address] [place] [address]. [place] [address] Care Team Providers Name Role Phone Selma Good APRN DOCUMENT PROCESSING SPECIALIST Primary Care Provider [phone] Encounter Details Date Type Department Care Team Description 11/22/2009 Historic Results [facility] Kylah Howard, [address] [place] [address] [address] [place], [place] [address] NEUROLOGY [phone] [address] [facility] [facility] [address] [place], [place] [address] (Wo rk) Social History [...] How often do you attend synagogue or taoism Patient refused 08/08/2019 services? Do [...] on filedocumented in this encounter Care Teams Electrician Office Relationship Specialty Start Date End Date Selma Good APRN DOCUMENT PROCESSING SPECIALIST PCP - General 04/09/08 04/07/15 [address] [facility] [place] [address] documented as of this encounter
--- OUTSIDE RECORDS SUMMARY | 2022-02-02 09:21 | XMS_ITS | Encounter Summary ---
:1965 Author Organization [place] Address [address] [place] [address] Care Team Providers Name Role Phone Selma Good APRN [facility] Primary Care Provider [phone] Reason for Visit [facility] Physical Therapy (Routine) - Closed Specialty Diagnoses / Procedures Referred By Contact Refer red To Contact Kylah Howard MD [facility] A[facility]LETIC [facility] CLINIC OF NEURO LOGY MED [address] [facility] [address] [place] [address] Referral ID Status Reason Start Date Expiration Date Visits Requ ested Visits Authorized HP - NECK Closed 11/15/2009 06/10/2010 8 8 Encounter Details Date Type Department Care Team Description 12/10/2009 Therapy Visit [place] for Sukhi Rust, P T Cervical Pain Athletic Medicine - [facility] [place] (Primary Dx) [place] [facility] [address] [place] [address] [place] [address] [place] [phone] Social History Tobacco Use Types Packs/Day [...] How often do you attend anglican or tenriism Patient refused 08/08/2019 services? Do you belong to any clubs or organizations such as No 08/08/2019 anglican groups, [employer], fraU.S. [employer] or athletic groups, or school groups? How [...] Procedure Name Priority Date/Time Associated Diagnosis Comme [facility] ZC MANUAL THER Routine 12/10/2009 5:35 PM CDT Cervical Pain TECH,1+REGIONS,EA 15 MIN ZZC THERAPEUTIC Routine 12/10/2009 5:35 PM CDT Cervical Pain EXERCISES documented in this encounter Visit Diagnoses Diagnosis Cervical pain - Primary Cervicalgia documented in this encounter Care Teams Powderer Relationship Specialty Start Date End Date Danilo-Selma Mccoy, FIBROUS PLASTERER LABEL DESIGNER PCP - General 04/09/08 04/07/[address] [facility] [place] [address] documented as of this encounter
--- OUTSIDE RECORDS SUMMARY | 2022-02-02 09:21 | XMS_ITS | Encounter Summary ---
:1965 Author Organization [place] Address [address] [place] [address] Care Team Providers Name Role Phone Selma Good APRN [facility] Primary Care Provider [phone] Reason for Visit [facility] Physical Therapy (Routine) - Closed Specialty Diagnoses / Procedures Referred By Contact Refer red To Contact Kylah Howard MD [facility] CLIN[facility] NEURO LOGY MED [address] [facility] [address] [place] [address] Referral ID Status Reason Start Date Expiration Date Visits Requ ested Visits Authorized HP - NECK Closed 11/15/2009 06/10/2010 8 8 Encounter Details Date Type Department Care Team Description 12/17/2009 Therapy Visit [place] for Vadim Banda P Pietro Cervical Pain Athletic Medicine - Rehab Services (Prima ry Dx) [facility]. Therapy [address] [place] [address] [place] [address] [place] [address] [phone] Social History Tobacco Use Types Packs/Day Years [...] How often do you attend evangelical or religion Patient refused 08/08/2019 services? Do you belong to any clubs or organizations such as No 08/08/2019 evangelical groups, [employer], fraternal or athletic groups, or school groups? [...] is being advanced to more complex exercises. ASSOCIATE PROFESSOR OF MEDIA ARTS/ATC plan: N/A Please refer to the daily [...] Cervicalgia documented in this encounter Care Teams Tire Shop Manager Relationship Specialty Start Date End Date Selma Good, SEAN COTTAGE SUPERVISOR PCP - General 04/09/08 04/07/15 [address] [facility] [address] [place], [place] [address] documented as of this encounter
--- OUTSIDE RECORDS SUMMARY | 2022-02-02 09:21 | XMS_ITS | Encounter Summary ---
:1965 Author Organization [place] Address [facility] [place] [address] Care Team Providers Name Role Phone Selma Good APRN CLINICAL TRIAL COORDINATOR Primary Care Provider [phone] Encounter Details Date Type Department Care Team Description 03/13/2010 Consultation [facility] Lianna Devries MD Results [address] [place] [address] (Wo rk) Social History Tobacco [...] nr Name: PADMINI CHOI MRN: [id number] Account: [id number] : 1965 Visit Date: 03/13/2010 Document: [id number] documented in this encounter Plan of Treatment Not on filedocumented as of this encounter Procedures Procedure Name Priority Date/Time Associated Diagnosis Comme [facility] ZZC 03/21/2010 11:39 AM Results for this [...] nr Name: PADMINI CHOI MRN: [id number] Account: [id number] : 1965 Visit Date: 03/13/2010 Document: [id number] Sriram Sosa MD PROCEDURES documented in this encounter Visit Diagnoses Not on filedocumented in this encounter Care Teams Mft Relationship Specialty Start Date End Date Danilo-Selma Mccoy, DEPARTMENT STORE GENERAL MANAGER CLINICAL TRIAL COORDINATOR PCP - General 04/09/08 04/07/15 [address] [facility] [place] [address] documented as of this encounter
--- OUTSIDE RECORDS SUMMARY | 2022-02-02 09:21 | XMS_ITS | Encounter Summary ---
:1965 Author Organization [place] Address [address] [place] [address] Care Team Providers Name Role Phone Selma Good APRN REGIONAL SALES EXECUTIVE Primary Care Provider [phone] Reason for Visit [facility] Physical Therapy (Routine) - Closed Specialty Diagnoses / Procedures Referred By Contact Refer red To Contact Rayo Rouse PA-C [facility] [place] [address] [address] [place] [address] Referral ID Status Reason Start Date Expiration Date Visits Requ ested Visits Authorized HP - ELBOW Closed 03/22/2009 06/10/2009 17 15 Encounter Details Date Type Department Care Team Description 04/23/2009 Therapy Visit [place] for Graciela Dupree PT Lateral Epicondylitis Athletic Medicine - [address] of Elbow (Primary Dx) [place] Physical [place] [address] Therapy [phone] [facility] Priscilla Sharpe (Work) [place] [address] Social History Tobacco Use Types Packs/Day Years [...] How often do you attend spiritism or cheondoism Patient refused 08/08/2019 services? Do [...] Medicaid as primary or secondary insurance? NO KITTER documented in this encounter Plan of Treatment Not on filedocumented as of this encounter Procedures Procedure Name Priority Date/Time Associated Diagnosis Comme nts [facility] MANUAL THER Routine 04/23/2009 4:27 PM Lateral Epicondylit is of TECH,1+REGIONS,EA 15 EDGE KITTER Elbow MIN Z THERAPEUTIC Routine 04/23/2009 4:27 PM Lateral Epicondylit is of EXERCISES EDGE KITTER Elbow documented in this encounter Visit Diagnoses Diagnosis Lateral epicondylitis of elbow - Primary Lateral epicondylitis of elbow documented in this encounter Care Teams Supervisor Machine Workers Relationship Specialty Start Date End Date Danilo-Selma Mccoy, MD UROLOGIST REGIONAL SALES EXECUTIVE PCP - General 04/09/08 04/07/[address] [facility] [address] [place], [place] [address] documented as of this encounter
--- OUTSIDE RECORDS SUMMARY | 2022-02-02 09:21 | XMS_ITS | Encounter Summary ---
:1965 Author Organization [place] Address [address] [place] [address] Care Team Providers Name Role Phone Selma Good APRN [facility] Primary Care Provider [phone] Reason for Visit [facility] Physical Therapy (Routine) - Closed Specialty Diagnoses / Procedures Referred By Contact Refer red To Contact Kylah Howard MD [facility] MED [address] [facility] [address] [place] [address] Referral ID Status Reason Start Date Expiration Date Visits Requ ested Visits Authorized HP - NECK Closed 11/15/2009 06/10/2010 8 8 Encounter Details Date Type Department Care Team Description 12/14/2009 Therapy Visit [place] for Vadim Banda P Pietro Cervical Pain Athletic Medicine - Rehab Services (Prima ry Dx) [facility] [facility] Therapy [address] [place] [address] DAV[place] Salvador [address] DAV[place] Seals [address] [phone] Social History Tobacco Use Types Packs/Day Years [...] How often do you attend hinduism or shinto Patient refused 08/08/2019 services? Do you belong to any clubs or organizations such as No 08/08/2019 hinduism groups, [employer], fraternal or athletic groups, or school groups? [...] Cervicalgia documented in this encounter Care Teams Film Painter Relationship Specialty Start Date End Date Danilo-Selma Mccoy, RELOCATION SPECIALIST CONTROL TOWER RADIO OPERATOR PCP - General 04/09/08 04/07/15 [address] [facility] [address] ANAYA, DAVID [address] documented as of this encounter
--- OUTSIDE RECORDS SUMMARY | 2022-02-02 09:21 | XMS_ITS | Encounter Summary ---
:1965 Author Organization [place] Address [address] [place] [address] Care Team Providers Name Role Phone Selma Good APRN [facility] Primary Care Provider [phone] Reason for Visit [facility] Physical Therapy (Routine) - Closed Specialty Diagnoses / Procedures Referred By Contact Refer red To Contact Kylah Howard MD [facility] NE[facility]O LOG[facility] MED [address] [facility] [address] [place] [address] Referral ID Status Reason Start Date Expiration Date Visits Requ ested Visits Authorized HP - NECK Closed 11/15/2009 06/10/2010 8 8 Encounter Details Date Type Department Care Team Description 12/28/2009 Therapy Visit [place] for Vadim Banda P Pietro Cervical Pain Athletic Medicine - Rehab Services (Prima ry Dx) [facility] Therapy [address] [place] [address] DAVID Salvador [address] DAVID Seals [address] [phone] Social History Tobacco Use Types Packs/Day Years [...] How often do you attend confucianism or sikh Patient refused 08/08/2019 services? Do you belong to any clubs or organizations such as No 08/08/2019 confucianism groups, [employer], fraternal or athletic groups, or school groups? [...] Cervicalgia documented in this encounter Care Teams Cad Application Support Specialist Relationship Specialty Start Date End Date Danilo-Selma Mccoy, HISTOLOGIST PRINTER ASSISTANT PCP - General 04/09/08 04/07/15 [address] [facility] [address] ANAYA, DAVID [address] documented as of this encounter
--- OUTSIDE RECORDS SUMMARY | 2022-02-02 09:21 | XMS_ITS | Encounter Summary ---
:1965 Author Organization [place] Address [address] [place] [address] Care Team Providers Name Role Phone Selma Good APRN STRAW HAT BRIM RAISER OPERATOR Primary Care Provider [phone] Encounter Details Date Type Department Care Team Description 01/19/2010 Orders Only [facility] Eag an Prediabetes [address] [place] [address] Social History Tobacco Use Types Packs/Day [...] How often do you attend advent or mosque Patient refused 08/08/2019 services? Do [...] Hemoglobin A1C 6.4 (H) 4.3 - 6.0 [facility] Specimen Anatomical Collection Method Collection Time Receive d Time (Source) Location / / Volume Laterality 01/19/2010 3:46 PM 0 3:51 CDT PM CDT Selma Good APRN STRAW HAT BRIM RAISER OPERATOR LABORATORY Performing Organization Address City/State/ZIP Code Phon e Number [address] [address] [facility] documented in this encounter Visit Diagnoses Diagnosis Prediabetes Other abnormal glucose documented in this encounter Care Teams Lamp Shade Sewer Relationship Specialty Start Date End Date Selma Good, MEDICAL IMAGING SPECIALIST STRAW HAT BRIM RAISER OPERATOR PCP - General 04/09/08 04/07/[address] [facility] [place] [address] documented as of this encounter
--- OUTSIDE RECORDS SUMMARY | 2022-02-02 09:21 | XMS_ITS | Encounter Summary ---
:1965 Author Organization [place] Address [address] [place] [address] Care Team Providers Name Role Phone Selma Good APRN [facility] Primary Care Provider Reason for Visit Reason Comments Foot Problems [...] Department Care Team Description 12/15/2009 Office Visit [place] [facility] Florent[place], Foot Pain ( Primary Dx); [place] APRN Migraine Headaches 14[address] [facility] DAVID Vasquez [address] 2544 [facility] [phone] [facility] DAVID [place] [id number] Social History Tobacco Use Types Packs/Day Years [...] How often do you attend mandaen or congregational Patient refused 08/08/2019 services? Do [...] Body Mass Index 37.93 07/12/2009 4:06 PM TAILER OFF documented in this encounter Progress Notes Selma [...] migrainosus documented in this encounter Care Teams E Commerce Architect Relationship Specialty Start Date End Date Danilo-Selma Mccoy, MANUGRAPHER BOARD OF EDUCATION SECRETARY PCP - General 04/09/08 04/07/15 7948 [facility] DAV[place] [address] documented as of this encounter
--- OUTSIDE RECORDS SUMMARY | 2022-02-02 09:21 | XMS_ITS | Encounter Summary ---
:1965 Author Organization [place] Address [address] [place] [address] Care Team Providers Name Role Phone Selma Good APRN ACCOUNT SUPPORT REP Primary Care Provider [phone] Reason for Visit [facility] Physical Therapy (Routine) - Closed Specialty Diagnoses / Procedures Referred By Contact Refer red To Contact Rayo Whitehead, MARÍA [facility] [address] [facility] E MED Yeyo 100 [place] [address] Referral ID Status Reason Start Date Expiration Date Visits Requ ested Visits Authorized HP - FOOT Closed 01/03/2010 06/10/2010 12 10 Encounter Details Date Type Department Care Team Description 01/25/2010 Therapy Visit [place] for Graciela Dupree, PT Other Peripheral Athletic Medicine - [address] Enthesopathies (Primary [place] [facility] DAVID ANAYA [address] Dx) Therapy [phone] 1440 Priscilla Sharpe (Work) DAVID ANAYA [address] Social History Tobacco Use Types Packs/Day Years [...] How often do you attend jewish or confucianist Patient refused 08/08/2019 services? Do you belong to any clubs or organizations such as No 08/08/2019 jewish groups, [employer], fraSERPs or athletic groups, or school groups? How [...] readiness to progress to higher level exercises. OBIEE ARCHITECT/ATC plan: N/A Please refer to the daily [...] y documented in this encounter Care Teams National Flatbed Truck Driver Relationship Specialty Start Date End Date Danilo-Selma Mccoy, PROCEDURES ANALYST ACCOUNT SUPPORT REP PCP - General 04/09/08 04/07/15 7745 [facility] DAVID [place] [address] documented as of this encounter
--- OUTSIDE RECORDS SUMMARY | 2022-02-02 09:21 | XMS_ITS | Encounter Summary ---
:1965 Author Organization [place] Address [address] [place] [address] Care Team Providers Name Role Phone Selma Good APRN GAS SPECIALIST Primary Care Provider [phone] Reason for Visit [facility] Physical Therapy (Routine) - Closed Specialty Diagnoses / Procedures Referred By Contact Refer red To Contact Rayo Whitehead, MARÍA [facility]LETIC [address] [place] [address] Referral ID Status Reason Start Date Expiration Date Visits Requ ested Visits Authorized HP - FOOT Closed 01/03/2010 06/10/2010 12 10 Encounter Details Date Type Department Care Team Description 02/02/2010 Therapy Visit [place] for [facility] Athletic Medicine - Sal Gonzales Enthesopathies (Primary [place] [facility] [address] Dx) Therapy ROSHAN [address] [place] [address] [place] [address] [phone] Social History Tobacco Use Types Packs/Day Years [...] How often do you attend restoration or methodist Patient refused 08/08/2019 services? Do you belong to any clubs or organizations such as No 08/08/2019 restoration groups, [employer], fraStorwize or athletic groups, or school groups? How [...] y documented in this encounter Care Teams Potato Chip Packaging Machine Operator Relationship Specialty Start Date End Date Selma Good, LEAD ASSEMBLER GAS SPECIALIST PCP - General 04/09/08 04/07/15 [address] [facility] [address] ANAYA, DAVID [address] documented as of this encounter
--- OUTSIDE RECORDS SUMMARY | 2022-02-02 09:21 | XMS_ITS | Encounter Summary ---
:1965 Author Organization [place] Address [address] [place] [address] Care Team Providers Name Role Phone Selma Good APRN COAL HAULER OPERATOR Primary Care Provider [phone] Reason for Visit [facility] Physical Therapy (Routine) - Closed Specialty Diagnoses / Procedures Referred By Contact Refer red To Contact Rayo Rouse PA-C [facility] [place] [address] [place] [address] Referral ID Status Reason Start Date Expiration Date Visits Requ ested Visits Authorized HP - ELBOW Closed 03/22/2009 06/10/2009 17 15 Encounter Details Date Type Department Care Team Description 04/19/2009 Therapy Visit [place] for Graciela Dupree PT Lateral Epicondylitis Athletic Medicine - [address] of Elbow (Primary Dx) [place] [facility] [place] [address] Therapy [phone] [facility] Priscilla Sharpe (Work) DAVID ANAYA [address] Social History Tobacco Use Types Packs/Day Years [...] How often do you attend adventism or moravian Patient refused 08/08/2019 services? Do [...] Medicaid as primary or secondary insurance? NO R PLACER documented in this encounter Plan of Treatment Not on filedocumented as of this encounter Procedures Procedure Name Priority Date/Time Associated Diagnosis Comme nts Z MANUAL THER Routine 04/19/2009 5:30 PM Lateral Epicondylit is of TECH,1+REGIONS,EA 15 MINER PLACER Elbow MIN ZZC THERAPEUTIC Routine 04/19/2009 5:30 PM Lateral Epicondylit is of EXERCISES MINER PLACER Elbow Z ULTRASOUND THERAPY Routine 04/19/2009 5:30 PM Lateral Epic ondylitis of MINER PLACER Elbow documented in this encounter Visit Diagnoses Diagnosis Lateral epicondylitis of elbow - Primary Lateral epicondylitis of elbow documented in this encounter Care Teams Band Teacher Relationship Specialty Start Date End Date Danilo-Selma Mccoy, CRUSHER FEEDER COAL HAULER OPERATOR PCP - General 04/09/08 04/07/15 3[address] [facility] DAVID [place] [address] documented as of this encounter
--- OUTSIDE RECORDS SUMMARY | 2022-02-02 09:21 | XMS_ITS | Encounter Summary ---
:1965 Author Organization [place] Address [address] [place] [address] Care Team Providers Name Role Phone Selma Good APRN COW BUYER Primary Care Provider [phone] Reason for Visit Reason Comments RECHECK Pt is here for a f/u visit f or diabetes Encounter Details Date Type Department Care Team Description 02/15/2010 Office Visit [facility] Florentino, Type 2 Diab etes, HbA1c Goal < 7% (H) (Primary Dx); [place] APRN Hyperlipidemia LDL Goal <100 ; [address] [facility] Hypertension Goal BP (Blood Pressure) < 130/80 DAVID [place]ring[place] [address] [facility] [phone] [facility] DAVID [place] [id number] Social History Tobacco Use Types Packs/Day Years [...] How often do you attend uatsdin or rastafari Patient refused 08/08/2019 services? Do [...] Body Mass Index 36.76 07/12/2009 4:06 PM FACING END TRIMMER documented in this encounter Patient Instructions Patient [...] OR TABS Histories reviewed and updated in [facility]. Shayy Ramos MA REVIEW OF SYSTEMS: C: [...] hypertension documented in this encounter Care Teams Book Salesman Relationship Specialty Start Date End Date Selma Good, MASTER OCEAN YACHT COW BUYER PCP - General 04/09/08 04/07/[address] [facility] [address] PRINGLE, DAVID [address] documented as of this encounter
--- OUTSIDE RECORDS SUMMARY | 2022-02-02 09:21 | XMS_ITS | Encounter Summary ---
:1965 Author Organization [place] Address [address] [place] [address] Care Team Providers Name Role Phone Selma Good APRN UNISHEAR OPERATOR Primary Care Provider [phone] Reason for Visit [facility] Physical Therapy (Routine) - Closed Specialty Diagnoses / Procedures Referred By Contact Refer red To Contact Rayo Whitehead, MARÍA [facility] [address] [place] [address] Referral ID Status Reason Start Date Expiration Date Visits Requ ested Visits Authorized HP - FOOT Closed 01/03/2010 06/10/2010 12 10 Encounter Details Date Type Department Care Team Description 01/31/2010 Therapy Visit [place] for [facility] Athletic Medicine - Sal Gonzales Enthesopathies (Primary [place] [facility] [address] Dx) Therapy [place] [address] [place] [address] [place] [address] [phone] Social History Tobacco Use Types Packs/Day Years [...] How often do you attend amish or christianity Patient refused 08/08/2019 services? Do you belong to any clubs or organizations such as No 08/08/2019 amish groups, [place], [employer] or athletic groups, or school groups? [...] y documented in this encounter Care Teams Stamping Bench Die Maker Relationship Specialty Start Date End Date Selma Good, VALET CASHIER UNISHEAR OPERATOR PCP - General 04/09/08 04/07/15 6645 [facility] DAV[place] [address] documented as of this encounter
--- OUTSIDE RECORDS SUMMARY | 2022-02-02 09:22 | XMS_ITS | Encounter Summary ---
:1965 Author Organization [place] Address [address] [place] [address] Care Team Providers Name Role Phone Selma Good APRN BLAST FURNACE BLOWER Primary Care Provider [phone] Reason for Visit [facility] Physical Therapy (Routine) - Closed Specialty Diagnoses / Procedures Referred By Contact Refer red To Contact Rayo Rouse PA-C [facility] [place] [address], [place] [address] Referral ID Status Reason Start Date Expiration Date Visits Requ ested Visits Authorized HP - ELBOW Closed 03/22/2009 06/10/2009 17 15 Encounter Details Date Type Department Care Team Description 04/01/2009 Therapy Visit [place] for Vadim Banda P T Lateral Epicondylitis Athletic Medicine - Rehab Services of Elisabet govea (Primary Dx) [facility] Therapy [address] [place] [address] DAV[place] Salvador [address] DAV[place] Seals [address] [phone] Social History Tobacco Use Types Packs/Day Years [...] organizations such as No 08/08/2019 orthodox groups, [employer], fraternal or athletic groups, or school groups? [...] elbow documented in this encounter Care Teams Housekeeper Nanny Relationship Specialty Start Date End Date Danilo-Selma Mccoy, BILLING ASSISTANT BLAST FURNACE BLOWER PCP - General 04/09/08 04/07/15 [address] [facility] [address] ANAYA, DAVID [address] documented as of this encounter
--- OUTSIDE RECORDS SUMMARY | 2022-02-02 09:22 | XMS_ITS | Encounter Summary ---
:1965 Author Organization [place] Address [facility] [place] [address] Care Team Providers Name Role Phone Selma Good APRN AERIAL ERECTOR Primary Care Provider [phone] Reason for Referral - Closed Specialty Diagnoses / Procedures Referred By Contact Refer red To Contact Diagnoses Right elbow pain Rayo Rouse PA-C [facility] [address] [place] [address] Referral ID Status Reason Start Date Expiration Date Visits Requ ested Visits Authorized [id number] Closed 03/12/2009 06/10/2011 1 1 Reason for Visit Reason Comments Musculoskeletal Problem right arm injury on 6 days a go after hanging up clothes, she felt a large pop near forear m Urgent Care Encounter Details Date Type Department Care Team Description 03/12/2009 Office Visit [facility] Urgent Rayo Rouse Righ t Elbow Pain Care MIKAYLA (Primary Dx) 14[address] [facility] DAV[place]ring[place] [address] [phone] [place] [id number] Social History Tobacco Use Types Packs/Day Years [...] How often do you attend confucianist or lutheran Patient refused 08/08/2019 services? Do you belong to any clubs or organizations such as No 08/08/2019 confucianist groups, [email or web address], fra[employer]yLife Software or athletic groups, or school groups? How [...] the distal circulation. Pulses are +2 and METER MAKER is brisk GENERAL APPEARANCE: healthy, alert and [...] Procedure Name Priority Date/Time Associated Diagnosis Comme [facility] RT X-RAY ELBOW Routine 03/12/2009 6:28 PM [...] arm documented in this encounter Care Teams Collection Clerk Relationship Specialty Start Date End Date Danilo-Selma Mccoy, ENTERTAINMENT DIRECTOR AERIAL ERECTOR PCP - General 04/09/08 04/07/15 [address] [facility] [address] PRINGLE, DAVID [address] documented as of this encounter
--- OUTSIDE RECORDS SUMMARY | 2022-02-02 09:22 | XMS_ITS | Encounter Summary ---
:1965 Author Organization [place] Address [address] [place] [address] Care Team Providers Name Role Phone Selma Good APRN FLIGHT CONTROLS ENGINEER Primary Care Provider [phone] Encounter Details Date Type Department Care Team Description 02/24/2006 Historic Faith Doctor INTERFACED REPORT Interface, MD Brannon Social History [...] How often do you attend caodaism or hinduism Patient refused 08/08/2019 services? Do [...] on filedocumented in this encounter Care Teams Tassel Making Machine Operator Relationship Specialty Start Date End Date Danilo-Selma Mccoy APRN FLIGHT CONTROLS ENGINEER PCP - General 04/09/08 04/07/15 1465 [facility] DAVID [place] [address] documented as of this encounter
--- OUTSIDE RECORDS SUMMARY | 2022-02-02 09:22 | XMS_ITS | Encounter Summary ---
:1965 Author Organization [place] Address [address] [place] [address] Care Team Providers Name Role Phone Unavailable Primary Care Provider Unavailable Encounter Details Date Type Department Care Team Description 02/19/2006 Operative Report Cora Galvan MD (Import/Export Freight Forwarder) XXX RETIRED XXX 640 [facility] 8 [place], [place] [address] (Wo rk) Social History Tobacco [...] How often do you attend moravian or mu-ism Patient refused 08/08/2019 services? Do [...] by: CORA GALVAN MD MT: armin Document: [id number] LCN: [id number] DSC: Name: MR#: : Procedure Date: PADMINI CHOI [id number] 1965 02/19/2006 OPERATIVE REPORT Page 2 of 1 documented in this encounter Plan of Treatment Not on filedocumented as of this encounter Visit Diagnoses Not on filedocumented in this encounter
--- OUTSIDE RECORDS SUMMARY | 2022-02-02 09:22 | XMS_ITS | Encounter Summary ---
:1965 Author Organization [place] Address [address] [place] [address] Care Team Providers Name Role Phone Selma Good APRN REGISTERED DIET TECHNICIAN Primary Care Provider [phone] Reason for Visit Reason Comments Sinus Problem Urgent Care Encounter Details Date Type Department Care Team Description 07/28/2008 Office Visit [place] [facility] [place], Ashli Minor, Shine eckert Otitis Media Care MD (Primary Dx) [address] [place] [address] DAV[place] Saldivar [phone] DAVID ANAYA [address] (Wo rk) Social History [...] How often do you attend sabianist or baptist Patient refused 08/08/2019 services? Do [...] Comments Blood Pressure 122/74 07/28/2008 6:00 PM BENCH BORING MACHINE OPERATOR Pulse - - Temperature 37.1 ??C (98.7 ??F) 07/28/2008 6:00 PM BENCH BORING MACHINE OPERATOR Respiratory Rate 16 07/28/2008 6:00 PM BENCH BORING MACHINE OPERATOR Oxygen Saturation - - Inhaled Oxygen [...] the amount of pus behind the membrane. H BORING MACHINE OPERATOR documented in this encounter Nursing [...] media documented in this encounter Care Teams Supervisor Filling And Packing Relationship Specialty Start Date End Date Danilo-Selma Mccoy, TELEPHOTO INSTALLER REGISTERED DIET TECHNICIAN PCP - General 04/09/08 04/07/[address] [facility] [address] ANAYA, DAVID [address] documented as of this encounter
--- OUTSIDE RECORDS SUMMARY | 2022-02-02 09:22 | XMS_ITS | Encounter Summary ---
:1965 Author Organization [place] Address [address] [place] [address] Care Team Providers Name Role Phone Selma Good APRN ENGINEERING SCIENTIST Primary Care Provider [phone] Encounter Details Date Type Department Care Team Description 02/20/2006 Historic Results [facility] Urgent Adriana Montesinos, Stephanie Azevedo MD [address] [address] [place] [address] (Wo rk) Social History Tobacco [...] How often do you attend faith or hoahaoism Patient refused 08/08/2019 services? Do [...] Component Value Ref Test Analysis Performed At [facility] gist Range Method Time Signature Source Unspecified MISYS Urine Color Urine Yellow MISYS Appearance Urine Clear MISYS Glucose Urine 70 (A) NEG MISYS mg/dL Bilirubin Urine Negative NEG MISYS Ketones Urine Negative NEG MISYS mg/dL Specific [place] 1.009 1.003 - MISYS Urine 1.035 Blood [...] LAB - URINE ORDERABLES Performing Organization Address City/[facility]/ZIP Code Phon e Number MISYS Urine culture (02/20/2006 1:30 PM CDT) Dining Secretary Method Time Signature Specimen Unspecified MISYS Description Urine Culture Micro No growth MISYS Micro Report FINAL [id number] MISYS Status Specimen Anatomical Collection Method Collection Time Receive d Time (Source) Location / / Volume Laterality 02/20/2006 1:30 PM 6 CDT 11:[address] Montesinos MD LAB - MICRO GENERAL ORDERABL ES Performing Organization Address City/[facility]/ZIP Code Phon e Number MISYS (ABNORMAL) Hemogram differential and platelet (02/20/2006 12:00 PM CDT) Dining Secretary Method Time Signature MCV [id number] - [...] filedocumented in this encounter Care Teams Spray Machine Tender Relationship Specialty Start Date End Date Selma Good, OUTER DIAMETER GRINDER TOOL ENGINEERING SCIENTIST PCP - General 04/09/08 04/07/[address] [facility] [address] [address] ANAYA, DAVID [address] documented as of this encounter
--- OUTSIDE RECORDS SUMMARY | 2022-02-02 09:22 | XMS_ITS | Encounter Summary ---
:1965 Author Organization [place] Address [address] [place] [address] Care Team Providers Name Role Phone Selma Good APRN MANUAL ARTS THERAPIST Primary Care Provider [phone] Encounter Details Date Type Department Care Team Description 02/19/2006 Historic Results INTERFACED REPORT Zachary Kirkland MD JOHN STARK MD PA [address] [facility] 715 [place] [address] (Wo rk) Social History Tobacco [...] How often do you attend orthodoxy or jain Patient refused 08/08/2019 services? Do [...] Crossmatch red cells (02/19/2006 12:10 PM CDT) [facility] Method Time Signature ABO O MISYS RH(D) Pos MISYS Antibody Neg MISYS Screen Blood Red Cells MISYS Component Type Units Ordered 2 MISYS Specimen 02/22/2006 MISYS Expires Unit Number [id number] MISYS Blood Red Blood MISYS Component Cells Type Leukocyte Reduced Status of REL FROM MISYS Unit ALLOC Unit Number [id number] MISYS Blood Red Blood MISYS Component Cells [...] on filedocumented in this encounter Care Teams Well Driller Helper Relationship Specialty Start Date End Date Selma Good, SEAN MANUAL ARTS THERAPIST PCP - General 04/09/08 04/07/[address] [address] documented as of this encounter
--- OUTSIDE RECORDS SUMMARY | 2022-02-02 09:22 | XMS_ITS | Encounter Summary ---
:1965 Author Organization [place] Address [address] [place] [address] Care Team Providers Name Role Phone Selma Good APRN MEDIA SERVICES DIRECTOR Primary Care Provider Encounter Details Date Type Department Care Team Description 10/24/2008 Orders Only [facility] Eag an Obesity; [address] [employer] Obesity, Unspecified [place] [address] Social History [...] How often do you attend synagogue or holiness Patient refused 08/08/2019 services? Do [...] athologist Signature Cholesterol 183 0 - 200 [facility] mg/dL CLINIC LAB Comment: LDL Cholesterol is the primary guide to therapy: LDL-cholesterol goal in high risk patients is <100 mg/dL and in very high risk patients is <70 mg/dL. The NCEP recommends further evaluation of: patients with cholesterol <200 mg/dL if additional risk factors are present, cholesterol >240 mg/dL, triglycerides >150 mg/dL, or HDL <40 mg/dL. Triglycerides 132 0 - 150 mg/dL [facility] HDL Cholesterol 34 (L) 50 - 110 mg/dL [facility] LDL Cholesterol Calculated 123 0 - 129 mg/dL [facility] Comment: LDL Cholesterol is the primary guide to therapy: LDL-cholesterol goal in high risk patients is <100 mg/dL and in very high risk patients is <70 mg/dL. VLDL-Cholesterol 26 0 - 30 mg/dL [facility] Cholesterol/HDL Ratio 5.4 (H) 0.0 - 5.0 [facility] Specimen Anatomical Collection Method Collection Time Receive d Time (Source) Location / / Volume Laterality 10/24/2008 9:56 AM 9 CDT 10:01 AM CDT Selma Good APRN MEDIA SERVICES DIRECTOR LABORATORY Performing Organization Address City/[facility]/ZIP Code Phon e Number [facility] [address] [place] [phone] [facility] (ABNORMAL) GLUCOSE (10/24/2008 9:56 AM CDT) athologist Signature Glucose 119 (H) 60 - 99 [facility] mg/dL CLINIC LAB Specimen Anatomical Collection Method Collection Time Receive d Time (Source) Location / / Volume Laterality 10/24/2008 9:56 AM 9 CDT 10:01 AM CDT Selma Good APRN [facility] LABORATORY Performing Organization Address [facility] Phon e Number [facility] [address] [place] [address] [phone] [facility] (ABNORMAL) HEMOGLOBIN A1C (10/24/2008 9:56 AM CDT) P athologist Signature Hemoglobin A1C 6.3 (H) 4.3 - 6.0 [facility] Specimen Anatomical Collection Method Collection Time Receive d Time (Source) Location / / Volume Laterality 10/24/2008 9:56 AM 9 CDT 10:01 AM CDT Selma Good APRN, CNP LABORATORY Performing Organization Address City/State/ZIP Code Phon e Number [facility] [address] [facility] [place] [phone] [facility] documented in this encounter Visit Diagnoses Diagnosis Obesity Obesity, unspecified Obesity, unspecified documented in this encounter Care Teams Gas Technician Relationship Specialty Start Date End Date Selma Good APRN MEDIA SERVICES DIRECTOR PCP - General 04/09/08 04/07/15 [address] [facility] [place] [address] documented as of this encounter
--- OUTSIDE RECORDS SUMMARY | 2022-02-02 09:22 | XMS_ITS | Encounter Summary ---
:1965 Author Organization [place] Address [address] [place] [address]. [place] [address] Care Team Providers Name Role Phone Selma Good APRN PIGMENT WEIGHER Primary Care Provider [phone] Encounter Details Date Type Department Care Team Description 02/24/2009 Historic Results [facility] Kylah Howard, [address] [place] [address] [address] [place], [place] [address] NEUROLOGY [phone] [address] [facility] [address] [place], [place] [address] (Wo rk) Social History [...] How often do you attend yarsani or nondenominational Patient refused 08/08/2019 services? Do [...] LAB - BLOOD ORDERABLES Performing Organization Address [facility] [[email or web address]] Code Phon e Number MISYS Rheumatoid factor (02/24/2009 2:38 PM CDT) athologist Signature Rheumatoid <7 0 - 14 [facility] Factor IU/mL Specimen Anatomical Collection Method Collection Time Receive d Time (Source) Location / / Volume Laterality 02/24/2009 2:38 PM 9 2:32 CDT PM CDT Kylah Howard MD LAB - BLOOD ORDERABLES Performing Organization Address [facility] Phon e Number MISYS Erythrocyte sedimentation rate auto (02/24/2009 2:38 PM CDT) athologist Signature Sed Rate 13 0 - 20 mm/h [facility] Specimen Anatomical Collection Method Collection Time Receive d Time (Source) Location / / Volume Laterality 02/24/2009 2:38 PM 9 2:32 CDT PM CDT Kylah Howard MD LAB - BLOOD ORDERABLES Performing Organization Address [facility] Phon e Number MISYS Lyme IgG and IgM screen (02/24/2009 2:38 PM CDT) [facility] Method Time Signature Specimen Serum MISYS [...] LAB - BLOOD ORDERABLES Performing Organization Address [facility] [[email or web address]] Code Phon e Number MISYS documented in this encounter Visit Diagnoses Not on filedocumented in this encounter Care Teams Hydro Station Operator Relationship Specialty Start Date End Date Selma Good, ENROLLMENT MANAGER PIGMENT WEIGHER PCP - General 04/09/08 04/07/[address] [facility] [address] [place], [place] [address] documented as of this encounter
--- OUTSIDE RECORDS SUMMARY | 2022-02-02 09:22 | XMS_ITS | Encounter Summary ---
:1965 Author Organization [place] Address [address] [place] [address] Care Team Providers Name Role Phone Selma Good APRN INSURANCE CONSULTANT Primary Care Provider [phone] Encounter Details Date Type Department Care Team Description 04/21/2008 Orders Only [facility] Eag an Routine General Medical [address] [facility] [place] [address] Care Facility [phone] Social History Tobacco Use Types Packs/Day Years [...] How often do you attend protestant or jehovah's witness Patient refused 08/08/2019 services? [...] General R esults for this METABOLIC PANEL LADLE PULLER Medical Examination proce dure are in at a Health Care the results Facility section. CL AFF A.M.A. LIPID Routine 04/21/2008 8:01 AM Routine General Results for this PANEL LADLE PULLER Medical Examination procedur e are in at a [facility] the results Facility section. documented in this encounter Results (ABNORMAL) A.M.A. COMPREHENSIVE MET.PANEL (04/21/2008 8:01 AM LADLE PULLER) athologist Signature Sodium 142 133 - 144 [facility] mmol/L [facility] Potassium 3.8 3.4 - 5.3 [facility] mmol/L [facility] Chloride 102 94 - 109 [facility] mmol/L [facility] Carbon Dioxide 27 20 - 32 [facility] mmol/L [facility] Anion Gap 12 6 - 17 [facility] mmol/L [facility] Glucose 126 (H) 60 - 99 [place] mg/dL [facility] Urea Nitrogen 9 5 - 24 [place] mg/dL [facility] Creatinine 0.66 0.52 - [place] 1.04 mg/dL [facility] Comment: New IDMS-traceable calibration beginning 10/10/07 GFR Estimate >90 >60 mL/min/1.7m2 [place] E AGAN [facility] GFR Estimate If Black >90 >60 mL/min/1.7m2 [facility] Calcium 9.0 8.5 - 10.4 mg/dL [facility] Bilirubin Total 0.5 0.2 - 1.3 mg/dL [facility] Albumin 3.6 (L) 3.9 - 5.1 g/dL [facility] Comment: Reference range changed on 02/10. Protein Total 7.2 6.8 - 8.8 g/dL [place] [facility] Comment: As of 07, reference range reflects plasma specimen type. Alkaline Phosphatase 129 40 - 150 U/L [facility] EW [facility] ALT 24 0 - 50 U/L [facility] IC LAB AST 21 0 - 45 U/L [facility] LAB Specimen Anatomical Collection Method Collection Time Receive d Time (Source) Location / / Volume Laterality 04/21/2008 8:01 AM 8 8:03 LADLE PULLER AM LADLE PULLER Selma Good APRN INSURANCE CONSULTANT LABORATORY Performing Organization Address City/State/ZIP Code Phon e Number [facility] [address] [place] [address] [facility] (ABNORMAL) A.M.A. LIPID PANEL (04/21/2008 8:01 AM LADLE PULLER) P athologist Signature Cholesterol 190 0 - 200 [facility] mg/dL CLINIC LAB Comment: LDL Cholesterol [...] Triglycerides 155 (H) 0 - 150 mg/dL [facility] HDL Cholesterol 34 (L) 50 - 110 mg/dL [facility] LDL Cholesterol Calculated 125 0 - 129 mg/dL [facility] Comment: LDL Cholesterol is the primary guide to therapy: LDL-cholesterol goal in high risk patients is <100 mg/dL and in very high risk patients is <70 mg/dL. VLDL-Cholesterol 31 (H) 0 - 30 mg/dL [facility] Cholesterol/HDL Ratio 5.6 (H) 0.0 - 5.0 [facility] Specimen Anatomical Collection Method Collection Time Receive d Time (Source) Location / / Volume Laterality 04/21/2008 8:01 AM 8 8:03 LADLE PULLER AM LADLE PULLER Selma Good APRN, CNP LABORATORY Performing Organization Address City/State/ZIP Code Phon e Number [facility] [address] [facility] [place] [address] [facility] documented in this encounter Visit Diagnoses Diagnosis Routine general medical examination at a health care facility documented in this encounter Care Teams Metal Products Fabricator Assembler Relationship Specialty Start Date End Date Selma Good APRN INSURANCE CONSULTANT PCP - General 04/09/08 04/07/15 [address] [facility] [place] [address] documented as of this encounter
--- OUTSIDE RECORDS SUMMARY | 2022-02-02 09:22 | XMS_ITS | Encounter Summary ---
:1965 Author Organization [place] Address [address] [place] [address] Care Team Providers Name Role Phone Unavailable Primary Care Provider Unavailable Encounter Details Date Type Department Care Team Description 02/19/2006 Results Only [facility] Hamzah Kirkland MD [facility] Radiology Results HAMZAH KIRKLAND MD PA [address] [facility] 715 [place] [address] (Wo rk) Social History Tobacco [...]
--- OUTSIDE RECORDS SUMMARY | 2022-02-02 09:22 | XMS_ITS | Encounter Summary ---
:1965 Author Organization [place] Address [address] [place] [address] Care Team Providers Name Role Phone Selma Good APRN NEWSPAPER JOURNALIST Primary Care Provider [phone] Reason for Visit [facility] Physical Therapy (Routine) - Closed Specialty Diagnoses / Procedures Referred By Contact Refer red To Contact Rayo Rouse PA-C [facility] [place] [address] [address] [place] [address] Referral ID Status Reason Start Date Expiration Date Visits Requ ested Visits Authorized HP - ELBOW Closed 03/22/2009 06/10/2009 17 15 Encounter Details Date Type Department Care Team Description 04/12/2009 Therapy Visit [place] for Graciela Dupree PT Lateral Epicondylitis Athletic Medicine - [address] of [place] (Primary Dx) [facility] [place] [address] Therapy [phone] [facility] Priscilla Sharpe (Work) [place] [address] Social History Tobacco Use Types Packs/Day Years [...] How often do you attend yazdanism or anabaptism Patient refused 08/08/2019 services? Do you belong to any clubs or organizations such as No 08/08/2019 yazdanism groups, Exaras, fraternal or athletic groups, or school groups? [...] Medicaid as primary or secondary insurance? NO ICAL SERVICES CONSULTANT documented in this encounter Plan of Treatment Not on filedocumented as of this encounter Procedures Procedure Name Priority Date/Time Associated Diagnosis Comme nts ZZC MANUAL THER Routine 04/12/2009 5:23 PM Lateral Epicondylit is of TECH,1+REGIONS,EA 15 CLINICAL SERVICES CONSULTANT [place] MIN ZZC THERAPEUTIC Routine 04/12/2009 5:23 PM Lateral Epicondylit is of EXERCISES CLINICAL SERVICES CONSULTANT [place] ZC ULTRASOUND THERAPY Routine 04/12/2009 5:23 PM Lateral Epic ondylitis of CLINICAL SERVICES CONSULTANT [place] ZZC HOT OR COLD PACKS Routine 04/12/2009 5:23 PM Lateral Epico ndylitis of THERAPY CLINICAL SERVICES CONSULTANT [place] documented in this encounter Visit Diagnoses Diagnosis Lateral epicondylitis of elbow - Primary Lateral epicondylitis of elbow documented in this encounter Care Teams Certified Nuclear Medicine Technologist Relationship Specialty Start Date End Date Danilo-Selma Mccoy, CARTON GLUING MACHINE OPERATOR NEWSPAPER JOURNALIST PCP - General 04/09/08 04/07/[address] [facility] [address] [place], [place] [address] documented as of this encounter
--- OUTSIDE RECORDS SUMMARY | 2022-02-02 09:22 | XMS_ITS | Encounter Summary ---
:1965 Author Organization [place] Address [address] [place] [address] Care Team Providers Name Role Phone Selma Good APRN MATERIAL REQUIREMENTS PLANNING MANAGER Primary Care Provider [phone] Reason for Visit Reason Onset Date Comments Refill Request 08/04/2008 amoxicillin Encounter Details Date Type Department Care Team Description 08/04/[address] [facility] Eag Selma Anthony Refill Request 1440 [employer] JSEAN CNP (amoxicillin) [place] [phone] 9[address] [facility] [phone] [facility] [place] [address] (Wo rk) Social [...] How often do you attend jainism or christian Patient refused 08/08/2019 services? Do [...] for her? Please call her when done. [phone] OK to leave a message. Tash Montez RN ITIES MANAGER documented in this encounter Plan of Treatment Not on filedocumented as of this encounter Visit Diagnoses Diagnosis Acute otitis media - Primary Unspecified otitis media documented in this encounter Care Teams Field Laboratory Operator Relationship Specialty Start Date End Date Danilo-Selma Mccoy, KEY ACCOUNT REPRESENTATIVE MATERIAL REQUIREMENTS PLANNING MANAGER PCP - General 04/09/08 04/07/[address] [facility] [address] [address] [place], [place] [address] documented as of this encounter
--- OUTSIDE RECORDS SUMMARY | 2022-02-02 09:22 | XMS_ITS | Encounter Summary ---
:1965 Author Organization [place] Address [address] [place] [address] Care Team Providers Name Role Phone Selma Good APRN MANAGER AUDIO Primary Care Provider [phone] Reason for Visit [facility] Physical Therapy (Routine) - Closed Specialty Diagnoses / Procedures Referred By Contact Refer red To Contact Rayo Rouse PA-C [facility] [place] [address] [address] Referral ID Status Reason Start Date Expiration Date Visits Requ ested Visits Authorized HP - ELBOW Closed 03/22/2009 06/10/2009 17 15 Encounter Details Date Type Department Care Team Description 04/08/2009 Therapy Visit [place] for Vadim Banda P T Lateral Epicondylitis Athletic Medicine - [facility] (Primary Dx) [facility] Therapy [address] [place] [address] [place] [address] [place] [address] [phone] Social History Tobacco Use Types Packs/Day Years [...] often do you attend roman catholic or taoism Patient refused 08/08/2019 services? Do you belong to any clubs or organizations such as No 08/08/2019 roman catholic groups, [employer], fraternal or athletic groups, or school groups? [...] elbow documented in this encounter Care Teams Cat Scan Tech Relationship Specialty Start Date End Date Danilo-Selma Mccoy, TRANSFORMER TESTER MANAGER AUDIO PCP - General 04/09/08 04/07/[address] [facility] [address] [place], [place] [address] documented as of this encounter
--- OUTSIDE RECORDS SUMMARY | 2022-02-02 09:22 | XMS_ITS | Encounter Summary ---
:1965 Author Organization [place] Address [address] [place] [address] Care Team Providers Name Role Phone Selma Good APRN STAFF ANESTHETIST Primary Care Provider [phone] Encounter Details Date Type Department Care Team Description 02/21/2006 Historic Results INTERFACED REPORT Zachary Kirkland MD JOHN STARK MD PA [address] [facility] 715 [place] [address] (Wo rk) Social History Tobacco [...] on filedocumented in this encounter Care Teams Licensed Life And Health Agent Relationship Specialty Start Date End Date Danilo-Selma Mccoy APRN STAFF ANESTHETIST PCP - General 04/09/08 04/07/15 [address] [facility] [address] [place], [place] [id number] documented as of this encounter
--- OUTSIDE RECORDS SUMMARY | 2022-02-02 09:22 | XMS_ITS | Encounter Summary ---
:1965 Author Organization [place] Address [address] [place] [address] Care Team Providers Name Role Phone Selma Good APRN OPHTHALMIC MEDICAL ASSISTANT Primary Care Provider [phone] Reason for Visit [facility] Physical Therapy (Routine) - Closed Specialty Diagnoses / Procedures Referred By Contact Refer red To Contact Rayo Rouse PA-C [facility] [place] [address] [address] [place] [address] Referral ID Status Reason Start Date Expiration Date Visits Requ ested Visits Authorized HP - ELBOW Closed 03/22/2009 06/10/2009 17 15 Encounter Details Date Type Department Care Team Description 03/24/2009 Therapy Visit [place] for Graciela Dupree PT Lateral Epicondylitis Athletic Medicine - [address] of [place] (Primary Dx) [facility] [place] [address] Therapy [phone] [facility] Priscilla Sharpe (Work) [place] [address] Social History Tobacco Use Types Packs/Day Years [...] How often do you attend zoroastrian or restoration Patient refused 08/08/2019 services? Do [...] elbow documented in this encounter Care Teams Fire Apparatus Sprinkler Inspector Relationship Specialty Start Date End Date Danilo-Selma Mccoy, SALES AGENT PROTECTIVE SERVICE OPHTHALMIC MEDICAL ASSISTANT PCP - General 04/09/08 04/07/15 [address] [facility] [place] [address] documented as of this encounter
--- OUTSIDE RECORDS SUMMARY | 2022-02-02 09:22 | XMS_ITS | Encounter Summary ---
:1965 Author Organization [place] Address [address] [place] [address] Care Team Providers Name Role Phone Selma Good FINISHING FRAME RUNNER REFINERY OPERATOR CRUDE UNIT Primary Care Provider [phone] Encounter Details Date Type Department Care Team Description 03/15/2009 Orders Only [facility] Eag Selma Anthony, 1440 [facility] FINISHING FRAME RUNNER REFINERY OPERATOR CRUDE UNIT [place] [phone] 0353 [facility] [phone] [facility] [place] [address] (Wo rk) Social History [...] How often do you attend zoroastrian or jain Patient refused 08/08/2019 services? Do [...] Procedure Name Priority Date/Time Associated Diagnosis Comme [facility] NCS MOTOR W/O F-WAVE, EACH Routine 03/08/2009 NERVE documented in this encounter Results MOTOR NERVE CONDUCT TEST (03/08/2009) Specimen (Source) Anatomical Location Collection Method / Collectio n Time Received Time / Laterality Volume 03/08/2009 Narrative This result has an attachment that is no t available. Selma Good APRN REFINERY OPERATOR CRUDE UNIT PROCEDURES documented in this encounter Visit Diagnoses Not on filedocumented in this encounter Care Teams Magazine Feeder Relationship Specialty Start Date End Date Selma Good APRN REFINERY OPERATOR CRUDE UNIT PCP - General 04/09/08 04/07/[address] [place] [address] documented as of this encounter
--- OUTSIDE RECORDS SUMMARY | 2022-02-02 09:22 | XMS_ITS | Encounter Summary ---
:1965 Author Organization [place] Address [address] [place] [address] Care Team Providers Name Role Phone Selma Good APRN FLAME CUTTER Primary Care Provider [phone] Reason for Visit [facility] Physical Therapy (Routine) - Closed Specialty Diagnoses / Procedures Referred By Contact Refer red To Contact Rayo Rouse PA-C [facility] [place] [address] [address] [place] [address] Referral ID Status Reason Start Date Expiration Date Visits Requ ested Visits Authorized HP - ELBOW Closed 03/22/2009 06/10/2009 17 15 Encounter Details Date Type Department Care Team Description 03/29/2009 Therapy Visit [place] for Graciela Dupree PT Lateral Epicondylitis Athletic Medicine - [address] of [place] (Primary Dx) [facility] [place] [address] Therapy [phone] [facility] Priscilla Sharpe (Work) [place] [address] Social History Tobacco Use Types Packs/Day Years [...] How often do you attend congregational or baptist Patient refused 08/08/2019 services? Do [...] elbow documented in this encounter Care Teams Discovery Guide Relationship Specialty Start Date End Date Danilo-Selma Mccoy, PROCESSING SPEC FLAME CUTTER PCP - General 04/09/08 04/07/15 [address] [facility] [place] [address] documented as of this encounter
--- OUTSIDE RECORDS SUMMARY | 2022-02-02 09:22 | XMS_ITS | Encounter Summary ---
:1965 Author Organization [place] Address [address] [place] [address] Care Team Providers Name Role Phone Selma Good APRN POLICE SURGEON Primary Care Provider [phone] Reason for Visit Reason Onset Date Comments Erroneous encounter-disregard 04/14/2009 Encounter Details Date Type Department Care Team Description 04/14/2009 Refill [facility] Eag Selma Anthony Erroneous [address] [employer] JSEAN CNP encounter-disregard [place] [phone] 5[address] [facility] [phone] [facility] [place] [address] (Wo rk) Social [...] How often do you attend advent or shinto Patient refused 08/08/2019 services? Do [...] LRF 01/17/09 Omeprazole # 90 x 3. L OPPORTUNITY ASSISTANT documented in this encounter Plan of Treatment Not on filedocumented as of this encounter Visit Diagnoses Diagnosis GERD (gastroesophageal reflux disease) - Primary Esophageal reflux documented in this encounter Care Teams Client Success Manager Relationship Specialty Start Date End Date Danilo-Selma Mccoy APRN POLICE SURGEON PCP - General 04/09/08 04/07/[address] [place] [address] documented as of this encounter
--- OUTSIDE RECORDS SUMMARY | 2022-02-02 09:22 | XMS_ITS | Encounter Summary ---
:1965 Author Organization [place] Address [address] [place] [address] Care Team Providers Name Role Phone Unavailable Primary Care Provider Unavailable Encounter Details Date Type Department Care Team Description 02/19/2006 Operative Report Hamzah Ramos MD (Clothing Cutter) HAMZAH RAMOS MD PA [address] [facility] 7[address] [place] [address] (Wo rk) Social History Tobacco [...] How often do you attend confucianism or episcopal Patient refused 08/08/2019 services? Do [...] HAMZAH RAMOS MD 151:1 MT: armin Document: [id number] LCN: [id number] DSC: Name: MR#: : Procedure Date: PADMINI CHOI [id number] 1965 02/19/2006 OPERATIVE REPORT Page 2 of [...] was prepped and draped prone on the four-bulk cooler installer. A longitudinal incision was made under direct [...] Midas Chilango was used to create a car pilot hole and then using the C-arm [...] distally and mediolaterally within a pedicle. A car pilot hole was made with the Midas [...] in 2 to 4 days. Lovenox and EXAMINATION SUPERVISOR Dilaudid while in the hospital. HAMZAH RAMOS MD Dictated by: HAMZAH RMAOS MD 181:0 MT: armin Document: [id number] LCN: [id number] DSC: Name: MR#: : Procedure Date: PADMINI CHOI [id number] 1965 02/19/2006 OPERATIVE REPORT Page 3 of 3 documented in this encounter Plan of Treatment Not on filedocumented as of this encounter Visit Diagnoses Not on filedocumented in this encounter
--- OUTSIDE RECORDS SUMMARY | 2022-02-02 09:22 | XMS_ITS | Encounter Summary ---
:1965 Author Organization [place] Address [address] [place] [address] Care Team Providers Name Role Phone Selma Good APRN [facility] Primary Care Provider [phone] Reason for Visit Reason Comments Elbow Pain c/o left elbow pain for 3 mo nths. no known injury Encounter Details Date Type Department Care Team Description 02/11/2009 Office Visit [facility] Florentino, Cervical Ra diculopathy Pino Angeles APRN (Primary Dx) 14[address] [facility] [place] Vasquez [address] [place] [address] [facility] DAV[place] [id number] Social History Tobacco Use Types Packs/Day Years [...] trap muscular tension and tendernes upon palpation. Machine Fancy Stitcher strength +2/+2, sensation to lt touch of fingers intact. Pain described as tingling and numbness. X-RAY was not done. ASSESSMENT/PLAN: 723.4AS Cervical Radiculopathy (primary encounter diagnosis) Comment: Discussed this pain is most likely stemming from her ongoing neck problems. She had an option to see neurology or compound specialist. Her old compound specialist who did her surgeries in 2000 [...] nos documented in this encounter Care Teams Photo Checker Relationship Specialty Start Date End Date Danilo-Selma Mccoy, DRAPERY MAKER SALES ASSOCIATE CASHIER PCP - General 04/09/08 04/07/15 [address] [facility] [address] [place], [place] [address] documented as of this encounter
--- OUTSIDE RECORDS SUMMARY | 2022-02-02 09:22 | XMS_ITS | Encounter Summary ---
:1965 Author Organization [place] Address [facility] [place] [address] Care Team Providers Name Role Phone Unavailable Primary Care Provider Unavailable Encounter Details Date Type Department Care Team Description 02/20/2006 Results Only [facility] Hamzah Kirkland MD [facility] Radiology Results HAMZAH KIRKLAND MD PA [address] [facility] 715 [place] [address] (Wo rk) Social History Tobacco [...] How often do you attend scientology or adventism Patient refused 08/08/2019 services? Do [...] Procedure Name Priority Date/Time Associated Diagnosis Comme [facility] X-RAY LUMBAR Routine 02/20/2006 8:33 PM Result [...]
--- OUTSIDE RECORDS SUMMARY | 2022-02-02 09:22 | XMS_ITS | Encounter Summary ---
:1965 Author Organization [place] Address [address] [place] [address] Care Team Providers Name Role Phone Selma Good GEOPHYSICAL PROSPECTING SURVEYOR COMMUNITY SERVICE REPRESENTATIVE Primary Care Provider [phone] Encounter Details Date Type Department Care Team Description 04/21/2008 Results Only [facility] Eag Selma Anthony, 1440 [facility] GEOPHYSICAL PROSPECTING SURVEYOR COMMUNITY SERVICE REPRESENTATIVE [place] [phone] 90[address] [facility] [phone] [facility] [place] [address] (Wo rk) [...] How often do you attend yarsanism or alevism Patient refused 08/08/2019 services? Do [...] Procedure Name Priority Date/Time Associated Diagnosis Comme [facility] MAMMO SCREEN Routine 04/21/2008 10:29 AM Resul ts for this BILATATERAL, INCL HYDROELECTRIC POWERPLANT SUPERVISOR procedure are in CAD WHEN PERF the results section. documented in this encounter Results SCREENING MAMMOGRAPHY DIGITAL (BILAT) (04/21/2008 10:29 AM HYDROELECTRIC POWERPLANT SUPERVISOR) Specimen (Source) Anatomical Collection Method Collection Time Re ceived Time Location / / Volume Laterality 04/21/2008 10:29 AM HYDROELECTRIC POWERPLANT SUPERVISOR Impressions RADIOLOGY RESULTS - 04/21/2008 11:04 AM HYDROELECTRIC POWERPLANT SUPERVISOR SCREENING MAMMOGRAM, BILATERAL, DIGITAL w/ CAD BREAST SYMPTOMS/COMPARISON:Routine. 09-29 BREAST PARENCHYMAL PATTERN: Heterogeneou sly dense. COMMENTS: Negative. IMPRESSION: BI-RADS 1, NEGATIVE. Selma Good APRN, CNP SPECIAL IMAGING STUDIES Performing Organization Address City/State/ZIP Code Phon e Number RADIOLOGY RESULTS documented in this encounter Visit Diagnoses Not on filedocumented in this encounter Care Teams Line Up Worker Relationship Specialty Start Date End Date Selma Good APRN CNP PCP - General 04/09/08 04/07/15 [address] [facility] [address] [place], [place] [address] documented as of this encounter
--- OUTSIDE RECORDS SUMMARY | 2022-02-02 09:22 | XMS_ITS | Encounter Summary ---
:1965 Author Organization [place] Address [address] [place] [address] Care Team Providers Name Role Phone Unavailable Primary Care Provider Unavailable Encounter Details Date Type Department Care Team Description 02/19/2006 Discharge Summary Hamzah Ramos M D (Merchandise Adjustment Clerk) HAMZAH RAMOS MD PA [address] [facility] 7[address] [place] [address] (Wo rk) Social History Tobacco [...] How often do you attend moravian or presybeterian Patient refused 08/08/2019 services? Do [...] Notes Hamzah Ramos - 07/05/2006 9:14 AM BUTCHER FISH FINAL FINAL DISCHARGE DIAGNOSES: Intractable pain, discogenic [...] LEXIS Name: PADMINI CHOI MRN: -[id number] Account: [id number] : 1965 Admit Date: Discharge Date: 02/24/2006 Document: [id number] cc: Jose Colin MD HER FISH documented in this encounter Plan of Treatment Not on filedocumented as of this encounter Visit Diagnoses Not on filedocumented in this encounter
--- OUTSIDE RECORDS SUMMARY | 2022-02-02 09:22 | XMS_ITS | Encounter Summary ---
:1965 Author Organization [place] Address [address] [place] [address] Care Team Providers Name Role Phone Selma Angelo APRN TOURS HOSTESS Primary Care Provider [phone] Reason for Visit Reason Comments Physical Encounter Details Date Type Department Care Team Description 04/13/2008 Office Visit [facility] Florentino, Lilo Gen eral Medical Examination at a Health Care Facility (Primary Dx); Pino Angeles APRN Screening Mammogram; 14[address] [facility] Screening for Malignant Neoplasm of the Cervix; [place] [phone] [facility] Need for Prophylactic Vaccin ation and Inoculation Against Influenza; [phone] 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 Tobacco Use: Never ??? Alcohol Use: Yes Rare ??? Drug Use: No ??? Sexually Active: Yes -- Male partner(s) Control/ Protection: Surgical Tubal Other Topics Concern ??? Not on file Social History Narrative ??? No narrative on file Family History Problem Relation ??? Cardiovascular Mother [place] age 72 ??? [...] appointment if any problems or failureto improve. ER WORKER Dafne Guerrero - 04/13/2008 3:36 PM CST [...] you fasting today? No Ivette Allan M.A. ER WORKER documented in this encounter Plan of Treatment Not on filedocumented as of this encounter Procedures Procedure Name Priority Date/Time Associated Diagnosis Comme nts HCL PAP THIN LAYER Routine 04/13/2008 12:00 AM Screening for R esults for this SCREEN TILLER WORKER Malignant Neoplasm procedure are in of the Cervix the results section. documented in this encounter Results A THIN LAYER PAP SCREEN (04/13/2008 12:00 AM TILLER WORKER) Component Value Ref Test Analysis Performed At [facility] Range Method Time Signature PAP OTHER-NIL EM>40 COPATH Copath Report COPATH Patient Name: PADMINI CHOI MR#: [id number] Specimen #: [id number] Collected: 04/13/2008 Received: 04/14/2008 Reported: 04/16/2008 16:11 [...] Todd Mckeon M.D. Processed and [facility] CLINICAL HISTORY: LMP: 03/28/08 TESTING LAB LOCATION: [address] ??[phone] COLLECTION SITE: Client: ??[facility] Location: EAFP (R) Specimen (Source) Anatomical Collection Method Collection Time Re ceived Time Location / / Volume Laterality 04/13/2008 04/14/2008 4:20 PM TILLER WORKER Selma Angelo APRN, CNP LABORATORY Performing Organization [...] unspecified documented in this encounter Care Teams Staff Internist Office Based Only Relationship Specialty Start Date End Date Selma Angelo APRN CNP PCP - General 04/09/08 04/07/[address] [facility] [facility] [place] [address] documented as of this encounter
--- OUTSIDE RECORDS SUMMARY | 2022-02-02 09:24 | XMS_ITS | Encounter Summary ---
:1965 Author Organization [facility] Address [address], [place] [address] Care Team Providers Name Role Phone Jose Colin DO Primary Care Provider [phone] Encounter Details Date Type Department Care Team Description 11/23/2007 Orders Only [facility] Radiology [address] [place] [address] Social History Tobacco Use Types [...] filedocumented in this encounter Care Teams Supervisor In Charge Relationship Specialty Start Date End Date Jose Colin DO PCP - General 12/24/03 09/17/08 [address] [place] [address] documented as of this encounter
--- OUTSIDE RECORDS SUMMARY | 2022-02-02 09:24 | XMS_ITS | Encounter Summary ---
:1965 [facility] Address [address] [place] [address] Care Team Providers Name Role Phone Jose Colin DO Primary Care Provider [phone] Encounter Details Date Type Department Care Team Description 12/31/2007 Orders Only [facility] DVT (Deep Venous [address] Thrombosis) [place], [place] [id number] Social History Tobacco Use Types Packs/Day Years [...] 14.5 sec Coumadin Yes [facility] INR 2.4 [facility] Specimen Anatomical Collection Method Collection Time Receive d Time (Source) Location / / Volume Laterality 12/31/2007 8:10 AM 8 8:16 CDT AM CDT Jose Colin DO LAB_1 Performing Organization Address City/State/ZIP Code Phon e Number [facility] [phone] [facility] [address] [address] documented in this encounter Visit Diagnoses Diagnosis DVT (deep venous thrombosis) ([facility]) Acute venous embolism and thrombosis of unspecified deep vessels of lower extremity documented in this encounter Care Teams Agency Director Relationship Specialty Start Date End Date Jose Colin DO PCP - General 12/24/03 09/17/08 [address] [place] [address] documented as of this encounter
--- OUTSIDE RECORDS SUMMARY | 2022-02-02 09:24 | XMS_ITS | Encounter Summary ---
:1965 Author Organization [facility] Address [address], [place] [address] Care Team Providers Name Role Phone Jose Colin DO Primary Care Provider [phone] Encounter Details Date Type Department Care Team Description 11/26/2007 [facility] Internal Med Wilda Burton RN [address] [place] [address] [address] [phone] [place], [place] [address] Social History Tobacco Use Types [...] on filedocumented in this encounter Care Teams Heavy Equipment Diesel Mechanic Relationship Specialty Start Date End Date Jose Colin, PCP - General 12/24/03 09/17/[address] [place] [address] documented as of this encounter
--- OUTSIDE RECORDS SUMMARY | 2022-02-02 09:24 | XMS_ITS | Encounter Summary ---
:1965 Author Organization [facility] Address [address], [place] [address] Care Team Providers Name Role Phone Jose Colin DO Primary Care Provider [phone] Encounter Details Date Type Department Care Team Description 12/19/2007 [facility] Internal Med Wilda Burton RN [address] [place] [address] [address] [phone] [place], [place] [address] Social History Tobacco Use Types [...] on filedocumented in this encounter Care Teams Sales Compensation Analyst Relationship Specialty Start Date End Date Jose Colin, PCP - General 12/24/03 09/17/[address] [place] [address] [address] documented as of this encounter
--- OUTSIDE RECORDS SUMMARY | 2022-02-02 09:24 | XMS_ITS | Encounter Summary ---
:1965 Author Organization [facility] Address [address] [address] Care Team Providers Name Role Phone Jose Colin DO Primary Care Provider [phone] Encounter Details Date Type Department Care Team Description 12/05/2007 [facility] Internal Med Wilda Burton RN 205 [place] [address] [address] [phone] [place], [place] [address] Social History Tobacco Use Types [...] on filedocumented in this encounter Care Teams Color Dipper Relationship Specialty Start Date End Date Jose Colin, PCP - General 12/24/03 09/17/[address] [place] [address] [address] [address] documented as of this encounter
--- OUTSIDE RECORDS SUMMARY | 2022-02-02 09:24 | XMS_ITS | Encounter Summary ---
:1965 Author Organization [facility] Address [address], [place] [address] Care Team Providers Name Role Phone Jose Colin DO Primary Care Provider [phone] Reason for Visit Reason Onset Date Comments Test Results 12/06/2007 Encounter Details Date Type Department Care Team Description 12/06/2007 [facility] [address] [facility] Marcos Harris RN Test Results Care [facility] [address] [place] [address] Social History Tobacco Use Types Packs/Day Years [...] on filedocumented in this encounter Care Teams Cable Ferryboat Operator Relationship Specialty Start Date End Date Jose Colin, PCP - General 12/24/03 09/17/08 [address] [place] [address] documented as of this encounter
--- OUTSIDE RECORDS SUMMARY | 2022-02-02 09:24 | XMS_ITS | Encounter Summary ---
:1965 Author Organization [facility] Address [address] [address] Care Team Providers Name Role Phone Jose Colin DO Primary Care Provider [phone] Encounter Details Date Type Department Care Team Description 12/03/2007 Orders Only [facility] [address] [place] [address] Social History Tobacco Use Types Packs/Day Years [...] on filedocumented in this encounter Care Teams Abrasive Grader Relationship Specialty Start Date End Date Jose Colin DO PCP - General 12/24/03 09/17/08 [address] [place] [address] documented as of this encounter
--- OUTSIDE RECORDS SUMMARY | 2022-02-02 09:24 | XMS_ITS | Encounter Summary ---
:1965 [facility] Address [address] [place] [address] Care Team Providers Name Role Phone Jose Colin DO Primary Care Provider [phone] Encounter Details Date Type Department Care Team Description 11/26/2007 Orders Only [facility] DVT (Deep Venous [address] Thrombosis) [place], [place] [id number] Social History Tobacco Use Types Packs/Day Years [...] 14.5 sec Coumadin Yes [facility] INR 4.5 [facility] Specimen Anatomical Collection Method Collection Time Receive d Time (Source) Location / / Volume Laterality 11/26/2007 7:34 AM 8 7:36 CDT AM CDT Jose Colin DO LAB_1 Performing Organization Address City/State/ZIP Code Phon e Number [facility] [phone] [facility] [address] [address] documented in this encounter Visit Diagnoses Diagnosis DVT (deep venous thrombosis) ([facility]) Acute venous embolism and thrombosis of unspecified deep vessels of lower extremity documented in this encounter Care Teams Marble Setter Helper Relationship Specialty Start Date End Date Jose Colin DO PCP - General 12/24/03 09/17/08 [address] [place] [address] documented as of this encounter
--- OUTSIDE RECORDS SUMMARY | 2022-02-02 09:24 | XMS_ITS | Encounter Summary ---
:1965 Author Organization [facility] Address [address] [place] [address] Care Team Providers Name Role Phone Unassigned, Provider Primary Care Provider Unavailable Encounter Details Date Type Department Care Team Description 05/25/2021 Lab Visit [facility] Arthralgia, unspecified join t; [address] [facility] [place] [address] Social History Tobacco Use Types Packs/Day Years [...] PM Arthralgia, Results for this ANTIBODY (CONSTANCE NETWORK TECHNICIAN unspecified join t procedure are in ASSAY) Fibromyalgia the results section. C-REACTIVE PROTEIN Routine 05/25/2021 12:16 PM Arthralgia, Re sults for this NETWORK TECHNICIAN unspecified join t procedure are in Fibromyalgia the results section. CK, TOTAL Routine 05/25/2021 12:16 PM Arthralgia, Results for this NETWORK TECHNICIAN unspecified join t procedure are in Fibromyalgia the results section. ESR Routine 05/25/2021 12:16 PM Arthralgia, Results for this NETWORK TECHNICIAN unspecified join t procedure are in Fibromyalgia the results section. documented in this encounter Results CPK - CK Total (05/25/2021 12:16 PM NETWORK TECHNICIAN) P athologist Signature CK, Total 64 29 - 168 05/25/2021 [place] U/L 3:03 PM NETWORK TECHNICIAN LABORATORY Specimen Anatomical Collection Method / Collection Time Recei terell Time (Source) Location / Volume Laterality Blood Venipuncture / 05/25/2021 12:16 1 Unknown PM NETWORK TECHNICIAN 12:16 PM NETWORK TECHNICIAN Kerrie Iqbal MD LAB_1 Performing Organization Address City/[facility]/ZIP Code Phon e Nar[facility] [address] [place] [address] ESR - Sedimentation Rate (05/25/2021 12:16 PM NETWORK TECHNICIAN) Patholo gist Method Time Signature Sedimentation Rate 6 0 - 20 05/25/2021 [place] mm/hr 12:56 PM NETWORK TECHNICIAN LABORATORY Specimen Anatomical Collection Method / Collection Time Recei terell Time (Source) Location / Volume Laterality Blood Venipuncture / 05/25/2021 12:16 1 Unknown PM NETWORK TECHNICIAN 12:16 PM NETWORK TECHNICIAN Kerrie Iqbal MD LAB_1 Performing Organization Address [facility] Phon e Number [facility] [address] [place] [address] UBA-Jdzd-FL-DNA by Constance Assay (05/25/2021 12:16 PM NETWORK TECHNICIAN) P athologist Signature Anti-dsDNA Ab <8.0 <8.0 IU/mL 06/03/2021 [facility] (Constance Assay) 5:06 PM NETWORK TECHNICIAN INTERFACED Specimen Anatomical Collection Method / Collection Time Recei terell Time (Source) Location / Volume Laterality Blood Venipuncture / 05/25/2021 12:16 1 Unknown PM NETWORK TECHNICIAN 12:16 PM NETWORK TECHNICIAN Narrative [facility] INTER[facility]ACED - 06/03/2021 5:06 PM NETWORK TECHNICIAN Test(s) [id number] Ab by Constance(RDL) was developed and its performance charac teristics determined by [facility]. It has not been cleared or a pproved by the Food and Drug Administration. Performed at: ??01 - [employer] [address] [place] [address] A ??[id number] Die Assembler: Vadim Palacios MD, Phone: ? ?[phone] Kerrie Iqbal MD LAB_1 Performing Organization Address City/State/ZIP Code Phon e Number [facility] INTERFACED [address] [address] [place] [address] CRP - C Reactive Protein (05/25/2021 12:16 PM NETWORK TECHNICIAN) P athologist Signature C-Reactive <0.5 0.0 - 0.7 05/25/2021 [place] Protein mg/dL 3:03 PM NETWORK TECHNICIAN LABORATORY Specimen Anatomical Collection Method / Collection Time Recei terell Time (Source) Location / Volume Laterality Blood Venipuncture / 05/25/2021 12:16 1 Unknown PM NETWORK TECHNICIAN 12:16 PM NETWORK TECHNICIAN Kerrie Iqbal MD LAB_1 Performing Organization Address City/State/ZIP Code Phon e Number [facility] [address] [place] [address] documented in this encounter Visit Diagnoses Diagnosis Arthralgia, unspecified joint Fibromyalgia Mylagia and myositis, unspecified documented in this encounter Care Teams Snuff Grinder And Screener Relationship Specialty Start Date End Date Unassigned, Provider PCP - General 09/18/08 [address] [place] [address] documented as of this encounter
--- OUTSIDE RECORDS SUMMARY | 2022-02-02 09:24 | XMS_ITS | Encounter Summary ---
:1965 [facility] Address [address] [place] [address] Care Team Providers Name Role Phone Jose Colin DO Primary Care Provider [phone] Encounter Details Date Type Department Care Team Description 01/27/2008 Orders Only [facility] DVT (Deep Venous [address] Thrombosis) [place], [place] [id number] Social History Tobacco Use Types Packs/Day Years [...] 12.0 - [facility] 14.5 sec [facility]madin [facility]1 [facility] Specimen Anatomical Collection Method Collection Time Receive d Time (Source) Location / / Volume Laterality 01/27/2008 7:37 AM 8 8:00 CDT AM CDT Jose Colin DO LAB_1 Performing Organization Address City/State/ZIP Code Phon e Number [facility] [phone] [facility] [address] [address] documented in this encounter Visit Diagnoses Diagnosis DVT (deep venous thrombosis) ([facility]) Acute venous embolism and thrombosis of unspecified deep vessels of lower extremity documented in this encounter Care Teams Tallow Pumper Relationship Specialty Start Date End Date Jose Colin DO PCP - General 12/24/03 09/17/08 [address] [place] [address] documented as of this encounter
--- OUTSIDE RECORDS SUMMARY | 2022-02-02 09:24 | XMS_ITS | Encounter Summary ---
:1965 Author Organization [facility] Address [address], [place] [address] Care Team Providers Name Role Phone Dungjosé antonioelbaJose medina Primary Care Provider [phone] Reason for Referral Specialty Diagnoses / [...] [place], Test Results [facility] CARTON FILLER [address] [facility] [address] Social History Tobacco Use Types [...] rimary documented in this encounter Care Teams Attic Blower Relationship Specialty Start Date End Date Jose Colin DO PCP - General 12/24/03 09/17/08 [address] [place] [address] documented as of this encounter
--- OUTSIDE RECORDS SUMMARY | 2022-02-02 09:24 | XMS_ITS | Encounter Summary ---
:1965 Author Organization [facility] Address [address], [place] [address] Care Team Providers Name Role Phone DungJose gonzalez Primary Care Provider [phone] Encounter Details Date Type Department Care Team Description 11/19/2007 Orders Only [facility] Tamra Ro MD Gastroenterology [address] [place] [address] [place] [address] [phone] Social History Tobacco Use Types Packs/Day Years [...] PAIN, OTHER SPECIFIED SITE... RUQ PAIN ?# [id number] HEPATOBILIARY IMAGING WITH EJECTION FRAC TION, 12/03/07. INDICATION: ??Abdominal pain and right u pper quadrant pain. TECHNIQUE: ??8.8 mCi of [id number]-[id number] i ntravenous and 1.8 mcg CCK infused. [...] quadrant pain. Narrative 11/27/2007 10:47 PM CDT #[id number], RUQ PAIN ULTRASOUND ABDOMEN 11/23/07: COMPARISON: ??None. [...] on filedocumented in this encounter Care Teams Clinical Field Specialist Relationship Specialty Start Date End Date Jose Colin, PCP - General 12/24/03 09/17/08 [address] [place] [address] documented as of this encounter
--- OUTSIDE RECORDS SUMMARY | 2022-02-02 09:24 | XMS_ITS | Encounter Summary ---
:1965 Author Organization [facility] Address [address] [place] [address] Care Team Providers Name Role Phone DixiePipochris Allan DO Primary Care Provider [phone] Reason for Visit Reason Onset Date Comments Return Call 11/29/2007 about further testin g Encounter Details Date Type Department Care Team Description 11/29/2007 Telephone [facility] Sandra Cardenas Call (about [facility], RN further testing) Clinic [address] [place] [address] [id number] (Wo rk) Social History Tobacco Use Types [...] rimary documented in this encounter Care Teams Printer Apprentice Relationship Specialty Start Date End Date Jose Colin DO PCP - General 12/24/03 09/17/08 [address] [place] [address] documented as of this encounter
--- OUTSIDE RECORDS SUMMARY | 2022-02-02 09:24 | XMS_ITS | Encounter Summary ---
:1965 Author Organization [facility] Address [address], [place] [address] Care Team Providers Name Role Phone DungJose gonzalez Primary Care Provider [phone] Encounter Details Date Type Department Care Team Description 01/27/2008 Anticoagulation [facility] Internal Brigido Burch DVT ( Deep Venous Medicine RN Thrombosis) (Primary [address] [facility] Dx) [place] [address] CLINIC [phone] [address] [place], [place] [id number] Social History Tobacco Use Types Packs/Day Years [...] Visit Diagnoses Diagnosis DVT (deep venous thrombosis) ([facility]) - Argelia bravo Acute venous embolism and thrombosis of unspecified deep vessels of lower extremity documented in this encounter Care Teams Office Professionals Relationship Specialty Start Date End Date Jose Colin, PCP - General 12/24/03 09/17/08 [address] [place] [address] documented as of this encounter
--- OUTSIDE RECORDS SUMMARY | 2022-02-02 09:24 | XMS_ITS | Encounter Summary ---
:1965 Author Organization [facility] Address [address] [place] [address] Care Team Providers Name Role Phone Jose Colin DO Primary Care Provider [phone] Encounter Details Date Type Department Care Team Description 12/05/2007 Orders Only [facility] DVT (Deep Venous [address] Thrombosis) [place], [place] [id number] Social History Tobacco Use Types Packs/Day Years [...] 14.5 sec Coumadin Yes [facility] INR 3.7 [facility] Specimen Anatomical Collection Method Collection Time Receive d Time (Source) Location / / Volume Laterality 12/05/2007 7:25 AM 8 7:48 CDT AM CDT Jose Colin DO LAB_1 Performing Organization Address City/State/ZIP Code Phon e Number [facility] [phone] [facility] [address] [address] documented in this encounter Visit Diagnoses Diagnosis DVT (deep venous thrombosis) ([facility]) Acute venous embolism and thrombosis of unspecified deep vessels of lower extremity documented in this encounter Care Teams Service Supervisor Relationship Specialty Start Date End Date Jose Colin DO PCP - General 12/24/03 09/17/08 [address] [place] [address] documented as of this encounter
--- OUTSIDE RECORDS SUMMARY | 2022-02-02 09:24 | XMS_ITS | Encounter Summary ---
:1965 Author Organization [facility] Address [address] [place] [address] Care Team Providers Name Role Phone Unassigned, Provider Primary Care Provider Unavailable Reason for Referral Procedure/Equipment (Routine) - Incomplete Specialty Diagnoses / Procedures Referred By Contact Refer red To Contact Diagnoses Arthralgia, unspecified joint Fibromyalgia Kerrie Iqbal MD Procedures XR Hands 1 View Bilat Arthritis [address] [place], [place] [address] Referral ID Status Reason Start Date Expiration Date Visits V isits Requested Authorized [id number] Incomplete 05/25/2021 08/24/2022 1 1 D EDUCATION COORDINATOR Reason for Visit Reason Comments CONSULT Encounter Details Date Type Department Care Team Description 05/25/2021 Office Visit Kerrie Grijalva Arthralgi a, unspecified joint (Primary Dx); Rheumatology MD Jeramie Fibromyalgia; [address] [facility] Chronic neck pain with histo ry of cervical spinal surgery; [place] [address] [facility] Chronic low back pain with sciatica, sci atica laterality unspecified, unspecified back pain laterality (HRC); [phone] [place], [place] Positive A NA (antinuclear antibody) [address] (Wo rk) Social History Tobacco Use Types [...] Blood Pressure 120/62 05/25/2021 11:09 AM FIELD EDUCATION COORDINATOR Pulse 59 05/25/2021 11:09 AM FIELD EDUCATION COORDINATOR Temperature 36.7 ??C (98.1 ??F) 05/25/2021 11:09 AM FIELD EDUCATION COORDINATOR Respiratory Rate - - Oxygen Saturation - - Inhaled Oxygen Concentration - - Weight 78.8 kg (173 lb 12.8 oz) 05/25/2021 11:09 AM FIELD EDUCATION COORDINATOR Height - - Body Mass Index - [...] in helping patients better manage chronic pain. Kev-iphefyhgan-ttqrk treatments An exercise program is an essential [...] pool. Many community pools such as the [facility] offer ???fibrocize?? water aerobics programs. A very [...] also help reduce stress. Occupational therapists at [facility] offer a program called the Lifestyle renewal program (see information on last page), where you can learn these techniques, and the majority of patients report that this is helpful. Pain psychologists at [facility] are another helpful resource. Emma Horn, PhD, Mandy Roldan M.Ed, LP, Psychologist at [facility] [Chronic pain (headaches, fibromyalgia, etc.) and irritable bowel syndrome - evaluation and treatment], and Rajiv Sutherland, Ph.D., LP, Psychologist at [facility] APPLICATION SUPERVISOR (Chronic pain evaluation). Patients may schedule appointments [...] strengthening can help in someinstances, as can health care facilities inspector. Warm water pool physical therapy at places like the [facility] and [facility] can be prescribed by your physician, if [...] trigger points can be injected by your Bleach Range Operator or other providers with a mixture of [...] internal organs. Resources ??? National Fibromyalgia Association [phone] www.fmaware.org ??? National Spraggs of Arthritis and Musculoskeletal and Skin Diseases 980 843 1257 www.niams.nih.gov ??? National Center for Complementary and Alternative Medicine [phone] www.[facility].nih.gov ??? [facility] [employer] (Water aerobics, heated pool to 91 degrees) [address] [place] [address]; charges apply. What else can be tried? Sometimes, for a minority of patients, the above interventions do not result in control of fibromyalgia. In these cases, you should consider a chronic pain program. Several of these and additional resources are listed below: [facility]), a nursing practice for fibromyalgia patients, has opened at [address] [place] [address], to serve [facility]. Lashawn Larios, RN, SCALLOP CUTTER and Staci Porter MS, RN, are the founders and co-owners. [phone] [facility], Dr. Emir Saini , [address] [facility] [place] [address] [facility] [address], [place] [address] Also offices in [place] and [place]. , [email or web address]/ [facility] Therapy: [facility], [place], Ann Velasquez, [place], [facility], [facility]. http://www.[facility] – guymonLarada Sciences.Seadev-FermenSys/ContentPages/Locations.aspx [facility] [place] [address] Outpatient therapy: (physical, occupational and speech therapy; bicycle taxi driver evaluations) Initial appointment: [phone]; Follow-up appointment: [phone] Aquatic therapy, Ann Yusuf [phone] [facility], [email or web address].[email or web address]/, [address] [facility], [place] [address], . [facility] - Pain Management [address] [place] [address] Appointments: [phone] [facility] [email or web address]- [email or web address]/tip/ [email or web address], [address], [place] [address]; Also a location in [place]. [facility] [phone] [facility] [place] [address] [place] [address] [facility] - they focus more on back pain, but offer cognitive behavioral therapy. Tip Hartley [facility] [phone] [facility] [phone], [address] [facility], [address], [place] [address] Saleem Mayberry MD [phone], critical care nurse specialist, [place] [address] [facility], , [place] [address] [facility] (will treat fibromyalgia and chronic pain syndrome in additionto head & neck disorders; also have MedX equipment for chronic back pain). [email or web address] ??? [place]: [address] [facility], [address], [address]; [phone] ??? [place]: [address] [facility], [address], [address]; [phone] ??? [place]: [address] [place] [address], [address]; [phone] ??? [place]: [address] [facility], [address]; [phone] Lifestyle Renewal Program - At [facility] The LifeStyle Renewal Program is an integrated [...] symptoms and improve quality of life. Location: [facility] and [place] Providers: Occupational Therapists with specialty training. Program: [...] Increase understanding - provide education 4. Use fwcm-fqyz-tkwrrt therapies to reframe pain/symptom experience 5. Modify behaviors to improve function 6. Relieve stress 7. Set up support systems 8. Increase physical activity 9. Improve sleep Education is provided in the areas of pacing, exercise, relaxation, sleep hygiene, body mechanics, postural awareness, ergonomics, Qigong, Healing Touch, problem solving and adaptive equipment. How to Contact: General information/scheduling D EDUCATION COORDINATOR documented in this encounter Progress Notes Kerrie Iqbal MD - 05/25/2021 11:00 AM CST Rheumatology New Patient/Consult Note Encounter Date: 05/25/2021 Referral: Kylah Cho MD [address] [place] [address] Reason for consult: Chief Complaint Patient presents with ??? CONSULT HPI: The patient is a 56 y.o. female with medical history of type II DM, degenerative spine disease with history of cervical and lumbar fusion, and fibromyalgia presenting to our clinic today for evaluation of arthralgias and abnormal lab. Outside labs from [facility] reviewed. She was previously scheduled to see rheumatology in December but had issues with the video visit. FALGUNI done at [facility] in November 2020 1:160 dense fine speckled. She had a normal ESR and CRP at that time. RF and CCP negative. She had repeat blood work done in February 2021-results uploaded in MEDIA and reviewed. FALGUNI positive with negative WILNER panel including anti chromatin, anti SM, MAIL CARRIER TECHNICIAN, Scl-70, SSA, SSB. ESR and CRP normal. [...] was just recently increased. 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 [...] CAREPLAN: ANTI-COAGULATION(Exp-05/01/08) ??? DVT (deep venous thrombosis) ([facility]) 05/01/2007 Priority: Low priority Class: Active [...] proximal and distal, upper and lower extremities. Automobile Travel Club Counselor 5/5. Psych: Normal affect, normal speech. MSK: [...] left Hands: FROM, 100% fist making, good synchronous motor assembler strength, there is some slight fullness more [...] 04/16/2007 Protein, Urine Qual Negative 04/16/2007 Specific [place],Ur 1.001 (L) 04/16/2007 Urobil, Urine Qual <2.0 04/16/2007 Epith, Squamous Occ 02/15/2006 WBC'S 1 04/16/2007 Bact Occ 04/16/2007 No results found for: CRP No results found for: ANASCREEN, RFQ, ESR Lab Results Component Value Date TSH, with Reflex 1.80 10/07/2005 outside labs from [facility] and [facility] reviewed, noted in HPI MRI lumbar spine [...] All questions answered. Kerrie Iqbal MD Rheumatology [facility] Billing based on: time Total time for the visit was 65 minutes including, but not limited to, sdg-ktea-lg-face time spent reviewing records, counseling, and coordination of care. Thank you for involving me in this patient's care. This note was dictated using voice recognition software. There may be sound- alike and/or punctuationerrors. Copy to Kylah Cho MD [address] [place] [address] D EDUCATION COORDINATOR documented in this encounter Plan of Treatment Not on filedocumented as of this encounter Results XR Hands 1 View Bilat Arthritis (05/25/2021 12:24 PM FIELD EDUCATION COORDINATOR) Anatomical Region Laterality Modality Upper Extremity, Hand Digital Radiograph y Specimen (Source) Anatomical Collection Method Collection Time Re ceived Time Location / / Volume Laterality 05/25/2021 12:19 PM FIELD EDUCATION COORDINATOR Impressions 05/25/2021 2:16 PM FIELD EDUCATION COORDINATOR COMPARISON: ??None. FINDINGS: ??Single view bilateral AP [...] CPK - CK Total (05/25/2021 12:16 PM FIELD EDUCATION COORDINATOR) P athologist Signature CK, Total 64 29 - 168 05/25/2021 [place] U/L 3:03 PM FIELD EDUCATION COORDINATOR LABORATORY Specimen Anatomical Collection Method / Collection Time Recei terell Time (Source) Location / Volume Laterality Blood Venipuncture / 05/25/2021 12:16 1 Unknown PM FIELD EDUCATION COORDINATOR 12:16 PM FIELD EDUCATION COORDINATOR Kerrie Iqbal MD LAB_1 Performing Organization Address [facility] Phon e Narayan [facility] [address] [place] [address] ESR - Sedimentation Rate (05/25/2021 12:16 PM FIELD EDUCATION COORDINATOR) Patholo gist Method Time Signature Sedimentation Rate 6 0 - 20 05/25/2021 [place] mm/hr 12:56 PM FIELD EDUCATION COORDINATOR LABORATORY Specimen Anatomical Collection Method / Collection Time Recei terell Time (Source) Location / Volume Laterality Blood Venipuncture / 05/25/2021 12:16 1 Unknown PM FIELD EDUCATION COORDINATOR 12:16 PM FIELD EDUCATION COORDINATOR Kerrie Iqbal MD LAB_1 Performing Organization Address [facility] jeramie [facility] [address] [place] [address] UJY-Jaqq-AE-DNA by Kirstie Assay (05/25/2021 12:16 PM FIELD EDUCATION COORDINATOR) P athologist Signature Anti-dsDNA Ab <8.0 <8.0 IU/mL 06/03/2021 [facility] (Kirstie Assay) 5:06 PM FIELD EDUCATION COORDINATOR INTERFACED Specimen Anatomical Collection Method / Collection Time Recei terell Time (Source) Location / Volume Laterality Blood Venipuncture / 05/25/2021 12:16 1 Unknown PM FIELD EDUCATION COORDINATOR 12:16 PM FIELD EDUCATION COORDINATOR Narrative [facility] INTERFACED - 06/03/2021 5:06 PM FIELD EDUCATION COORDINATOR Test(s) [id number] Ab by Kirstie(RDL) was developed and its performance charac teristics determined by [facility]. It has not been cleared or a pproved by the Food and Drug Administration. Performed at: ??01 - [facility] [address] [place] [address] A ??[id number] Stencil Sprayer: Vadim Palacios MD, Phone: ? ?[phone] Kerrie Iqbal MD LAB_1 Performing Organization Address City/State/ZIP Code Phon e Number [facility] INTERFACED [address] [address] [place] [address] CRP - C Reactive Protein (05/25/2021 12:16 PM FIELD EDUCATION COORDINATOR) P athologist Signature C-Reactive <0.5 0.0 - 0.7 05/25/2021 [place] Protein mg/dL 3:03 PM FIELD EDUCATION COORDINATOR LABORATORY Specimen Anatomical Collection Method / Collection Time Recei terell Time (Source) Location / Volume Laterality Blood Venipuncture / 05/25/2021 12:16 1 Unknown PM FIELD EDUCATION COORDINATOR 12:16 PM FIELD EDUCATION COORDINATOR Kerrie Iqbal MD LAB_1 Performing Organization Address City/State/ZIP Code Phon e Number [facility] [address] [place] [address] documented in this encounter Visit Diagnoses [...] unspecified documented in this encounter Care Teams Automatic Maintainer Relationship Specialty Start Date End Date Unassigned, Provider PCP - General 09/18/08 [address] [place] [address] documented as of this encounter
--- OUTSIDE RECORDS SUMMARY | 2022-02-02 09:24 | XMS_ITS | Encounter Summary ---
:1965 [facility] Address [address] [place] [address] Care Team Providers Name Role Phone Unassigned, Provider Primary Care Provider Unavailable Reason for Visit Procedure/Equipment (Routine) - Incomplete Specialty Diagnoses / Procedures Referred By Contact Refer red To Contact Diagnoses Arthralgia, unspecified joint Fibromyalgia Kerrie Iqbal MD Procedures XR Hands 1 View Bilat Arthritis [address] [place], [place] [address] Referral ID Status Reason Start Date Expiration Date Visits V isits Requested Authorized [id number] Incomplete 05/25/2021 08/24/2022 1 1 Encounter Details Date Type Department Care Team Description 05/25/2021 Ancillary [place], Arthralgia, uns pecified joint; Procedure Radiology Kerrie Alvarez MD Fibromyalgia [address] [phone] Social History Tobacco Use Types Packs/Day Years [...] Arthralgia, Resul ts for this BILAT ARTHRITIS ELIGIBILITY SUPERVISOR unspecified join t procedure are in Fibromyalgia the results section. documented in this encounter Results XR Hands 1 View Bilat Arthritis (05/25/2021 12:24 PM ELIGIBILITY SUPERVISOR) Anatomical Region Laterality Modality Upper Extremity, Hand Digital Radiograph y Specimen (Source) Anatomical Collection Method Collection Time Re ceived Time Location / / Volume Laterality 05/25/2021 12:19 PM ELIGIBILITY SUPERVISOR Impressions 05/25/2021 2:16 PM ELIGIBILITY SUPERVISOR COMPARISON: ??None. FINDINGS: ??Single view bilateral AP [...] unspecified documented in this encounter Care Teams Solutions Sales Executive Relationship Specialty Start Date End Date Unassigned, Provider PCP - General 09/18/[address] [place] [address] documented as of this encounter
--- OUTSIDE RECORDS SUMMARY | 2022-02-02 09:24 | XMS_ITS | Encounter Summary ---
:1965 Author Organization [facility] Address [address], [place] [address] Care Team Providers Name Role Phone Jose Colin DO Primary Care Provider [phone] Encounter Details Date Type Department Care Team Description 12/31/2007 [facility] Internal Med Wilda Burton RN [address] [place] [address] [address] [phone] [place], [place] [address] Social History Tobacco Use Types [...] on filedocumented in this encounter Care Teams Racetrack Steward Relationship Specialty Start Date End Date Jose Colin, PCP - General 12/24/03 09/17/[address] [place] [address] documented as of this encounter
--- OUTSIDE RECORDS SUMMARY | 2022-02-02 09:24 | XMS_ITS | Encounter Summary ---
:1965 Author Organization [facility] Address [address] [place] [address] Care Team Providers Name Role Phone DixieJose Jerrell BOOGIE Primary Care Provider [phone] Reason for Visit Reason Onset Date Comments Test Results 12/10/2007 HIDA scan Encounter Details Date Type Department Care Team Description 12/10/2007 Telephone [facility] [address] Results ([facility] Luciana Riojas, COFFEE SHOP ATTENDANT, scan) [address] [place] [address] [address] [phone] [place] [address] Social History Tobacco Use Types [...] on filedocumented in this encounter Care Teams Maintenance Engineer Relationship Specialty Start Date End Date Jose Colin DO PCP - General 12/24/03 09/17/08 [address] [place] [address] documented as of this encounter
--- OUTSIDE RECORDS SUMMARY | 2022-02-02 09:24 | XMS_ITS | Encounter Summary ---
:1965 Author Organization [facility] Address [address] [place] [address] Care Team Providers Name Role Phone Jose Colin DO Primary Care Provider Encounter Details Date Type Department Care Team Description 12/19/2007 Orders Only [facility] DVT (Deep Venous [address] Thrombosis) [place], [place] [id number] Social History Tobacco Use Types Packs/Day Years [...] 12.0 - [facility] 14.5 sec [facility]mad[facility]0 [facility] Specimen Anatomical Collection Method Collection Time Receive d Time (Source) Location / / Volume Laterality 12/19/2007 7:22 AM 8 7:45 CDT AM CDT Jose Colin DO LAB_1 Performing Organization Address City/State/ZIP Code Phon e Number [facility] [phone] [facility] [address] [address] documented in this encounter Visit Diagnoses Diagnosis DVT (deep venous thrombosis) ([facility]) Acute venous embolism and thrombosis of unspecified deep vessels of lower extremity documented in this encounter Care Teams Utility Appraiser Relationship Specialty Start Date End Date Jose Colin DO PCP - General 12/24/03 09/17/08 [address] [place] [address] documented as of this encounter
--- OUTSIDE RECORDS SUMMARY | 2022-02-02 09:24 | XMS_ITS | Clinical Summary ---
:1965 Author Organization [facility] Address [address], [place] [address] Care Team Providers Name Role Phone Unassigned, [...] for each transition of care or referral. Freeppie Allergies Active Allergy Reactions Severity Noted Date [...] Influenza IIV4 (Quadrivalent) 0.5mL 06/12/2017, 03/23/2016, 04/08/2015, (23573) 05/30/2013 PPSV23 (Pneumovax) 10/06/2014 Pfizer (Comirnaty) COVID-19, [...] Comments Blood Pressure 120/62 05/25/2021 11:09 AM STENCIL SPRAYER Pulse 59 05/25/2021 11:09 AM STENCIL SPRAYER Temperature 36.7 ??C (98.1 ??F) 05/25/2021 11:09 AM STENCIL SPRAYER Respiratory Rate 16 08/23/2007 1:13 PM CDT Oxygen Saturation 97% 08/23/2007 1:13 PM CDT Inhaled Oxygen Concentration - - Weight 78.8 kg (173 lb 12.8 oz) 05/25/2021 11:09 AM STENCIL SPRAYER Height 160 cm (5' 3) 08/23/2007 1:13 [...] this topic Medical Devices Implanted Type Area Factory Engineer Device Shelf Model / Identifier Expiration Date Ser ial / Lot Bone Canc Crushed 60cc - [id number] BIOLOGIC Left: Henna [id number] / Implanted: Qty: 1 on 04/15/2007 at [facility] OTS [id number] / Device Cage Ray Thrd 12x26 - [id number] DEVICE Left: Henna [id number] / Implanted: Qty: 2 on 04/15/2007 at [facility] / [id number] Cage Ray [id number] - [id number] Left: Henna 7-1426 / Implanted: Qty: 1 on 04/15/2007 at [facility] / [id number] Insurance Payer Benefit Plan / Subscriber ID Effective Dates Phone Addre ss Type Group BCBS BCBS OUT OF [id number] 2016-Present [address] [address] [place] [address] (Work) Megan Choi Personal/Family Self 1965 [address] (Home) DAVID LARA [phone] (Work) Advance Directives Latest Code Status on File Code Status Date Activated Date Inactivated Comments Full Code 04/15/2007 8:03 AM 04/19/2007 8:53 PM Care Teams Food Services Director Relationship Specialty Start Date End Date Unassigned, Provider PCP - General 09/18/[address] [place] [address]
--- OUTSIDE RECORDS SUMMARY | 2022-02-02 09:25 | XMS_ITS | Encounter Summary ---
:1965 Author [facility] Address [address] [place] [address] Care Team Providers Name Role Phone Jose Colin DO Primary Care Provider [phone] Encounter Details Date Type Department Care Team Description 10/23/2007 Orders Only [facility] DVT (Deep Venous [address] S[address] Thrombosis) [place], [place] [id number] Social History Tobacco Use Types Packs/Day Years [...] 12.0 - [facility] 14.5 sec Coumadin Yes [facility]7 [facility] Specimen Anatomical Collection Method Collection Time Receive d Time (Source) Location / / Volume Laterality 10/23/2007 7:31 AM 8 7:33 CDT AM CDT Jose Colin DO LAB_1 Performing Organization Address City/State/ZIP Code Phon e Number [facility] [phone] [facility] [address] [address] documented in this encounter Visit Diagnoses Diagnosis DVT (deep venous thrombosis) ([facility]) Acute venous embolism and thrombosis of unspecified deep vessels of lower extremity documented in this encounter Care Teams Systems Integration Engineer Relationship Specialty Start Date End Date Jose Colin DO PCP - General 12/24/03 09/17/08 [address] [place] [address] documented as of this encounter
--- OUTSIDE RECORDS SUMMARY | 2022-02-02 09:25 | XMS_ITS | Encounter Summary ---
:1965 Author Organization [facility] Address [address], [place] [address] Care Team Providers Name Role Phone Jose Colin DO Primary Care Provider [phone] Encounter Details Date Type Department Care Team Description 10/16/2007 Anticoagulation [facility] Internal Med Laura Martinez 205 [facility][1] Aleyda, [place] [address] [facility] [phone] 205 [place], [place] [address] (Wo rk) Social History [...] on filedocumented in this encounter Care Teams Buck Presser Relationship Specialty Start Date End Date Jose Colin, PCP - General 12/24/03 09/17/08 [address] [place] [address] documented as of this encounter
--- OUTSIDE RECORDS SUMMARY | 2022-02-02 09:25 | XMS_ITS | Encounter Summary ---
:1965 Author Organization [facility] Address [address], [place] [address] Care Team Providers Name Role Phone Jose Colin DO Primary Care Provider [phone] Encounter Details Date Type Department Care Team Description 10/08/2007 [facility] Internal Med arnel Puente Laura 205 [facility], [place] [address] [facility] [phone] [address] [place], [place] [address] (Wo rk) Social History [...] on filedocumented in this encounter Care Teams Editor Sound Relationship Specialty Start Date End Date Jose Colin DO PCP - General 12/24/03 09/17/[address] [place] [address] documented as of this encounter
--- OUTSIDE RECORDS SUMMARY | 2022-02-02 09:25 | XMS_ITS | Encounter Summary ---
:1965 Author [facility] Address [address] [place] [address] Care Team Providers Name Role Phone Jose Colin DO Primary Care Provider [phone] Encounter Details Date Type Department Care Team Description 10/08/2007 Orders Only [facility] DVT (Deep Venous [address] Thrombosis) [place], [place] [id number] Social History Tobacco Use Types Packs/Day Years [...] 14.5 sec Coumadin Yes [facility] INR 1.5 [facility] Specimen Anatomical Collection Method Collection Time Receive d Time (Source) Location / / Volume Laterality 10/08/2007 7:40 AM 8 7:41 CDT AM CDT Jose Colin DO LAB_1 Performing Organization Address City/State/ZIP Code Phon e Number [facility] [phone] [facility] [address] [address] documented in this encounter Visit Diagnoses Diagnosis DVT (deep venous thrombosis) ([facility]) Acute venous embolism and thrombosis of unspecified deep vessels of lower extremity documented in this encounter Care Teams Record Clerk Relationship Specialty Start Date End Date Jose Colin DO PCP - General 12/24/03 09/17/08 [address] [place] [address] documented as of this encounter
--- OUTSIDE RECORDS SUMMARY | 2022-02-02 09:25 | XMS_ITS | Encounter Summary ---
:1965 Author [facility] Address [address] [place] [address] Care Team Providers Name Role Phone Jose Colin DO Primary Care Provider [phone] Encounter Details Date Type Department Care Team Description 10/29/2007 Orders Only [facility] DVT (Deep Venous [address] [place] [address] St. S. Thrombosis) [place], [place] [id number] Social History Tobacco Use Types Packs/Day Years [...] 14.5 sec Coumadin Yes [facility] INR 2.0 [facility] Specimen Anatomical Collection Method Collection Time Receive d Time (Source) Location / / Volume Laterality 10/29/2007 7:50 AM 8 7:51 CDT AM CDT Jose Colin DO LAB_1 Performing Organization Address City/State/ZIP Code Phon e Number [facility] [phone] [facility] [address] [address] documented in this encounter Visit Diagnoses Diagnosis DVT (deep venous thrombosis) ([facility]) Acute venous embolism and thrombosis of unspecified deep vessels of lower extremity documented in this encounter Care Teams Centura Technical Lead Senior Developer Relationship Specialty Start Date End Date Jose Colin DO PCP - General 12/24/03 09/17/08 [address] [place] [address] documented as of this encounter
--- OUTSIDE RECORDS SUMMARY | 2022-02-02 09:25 | XMS_ITS | Encounter Summary ---
:1965 [facility] Address [address] [place] [address] Care Team Providers Name Role Phone Jose Colin DO Primary Care Provider [phone] Encounter Details Date Type Department Care Team Description 10/29/2007 Anticoagulation [facility] Internal Sandy Light RN [address] [place] [address] [place], [place] [address] (Wo rk) Social History Tobacco Use Types [...] on filedocumented in this encounter Care Teams Route Deliverer Relationship Specialty Start Date End Date Jose Colin DO PCP - General 12/24/03 09/17/[address] [place] [address] documented as of this encounter
--- OUTSIDE RECORDS SUMMARY | 2022-02-02 09:25 | XMS_ITS | Encounter Summary ---
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 [address] Social History Tobacco Use Types Packs/Day [...] prior, this is done over at the [address] [place] [address] on [facility]. If you need to cancel or reschedule please call [phone]. If you have any questions or concerns please call [phone]. Option 3 for the nurse line. documented [...] 11/19/2007 15:40:18 Transcribed: 11/20/2007 13:41:47 Doc #: [id number] cc:Jose Colin DO, Referring Physician 1 Page 1 Patient Name: MEGAN CHOI Visit Date: 11/19/2007 [facility] [address] [address] Page 1 Patient: MEGAN CHOI Location: [facility] HPN: [id number] Visit Date: 11/19/2007 Date of : 1965 [...] rimary documented in this encounter Care Teams Tool Repairer Relationship Specialty Start Date End Date Jose Colin DO PCP - General 12/24/03 09/17/08 [address] [place] [address] documented as of this encounter
--- OUTSIDE RECORDS SUMMARY | 2022-02-02 09:25 | XMS_ITS | Encounter Summary ---
:1965 Author Organization [facility] Address [address], [place] [address] Care Team Providers Name Role Phone Jose Colin DO Primary Care Provider [phone] Encounter Details Date Type Department Care Team Description 10/23/2007 Anticoagulation [facility] Internal Med Laura Martinez 205 [facility] Aleyda, [place] [address] [facility] [phone] 205 [place], [place] [address] (Wo rk) Social History [...] on filedocumented in this encounter Care Teams Double Needle Operator Lockstitch Relationship Specialty Start Date End Date Jose Colin, PCP - General 12/24/03 09/17/08 [address] [place] [address] documented as of this encounter
--- OUTSIDE RECORDS SUMMARY | 2022-02-02 09:25 | XMS_ITS | Encounter Summary ---
:1965 Author Organization [facility] Address [address] [place] [address] Care Team Providers Name Role Phone Jose Colin DO Primary Care Provider [phone] Encounter Details Date Type Department Care Team Description 10/16/2007 Orders Only [facility] DVT (Deep Venous [address] [place] [address] St. S. Thrombosis) [place], [place] [id number] Social History Tobacco Use Types Packs/Day Years [...] 14.5 sec Coumadin Yes [facility] INR 1.9 [facility] Specimen Anatomical Collection Method Collection Time Receive d Time (Source) Location / / Volume Laterality 10/16/2007 8:06 AM 8 8:07 CDT AM CDT Jose Colin DO LAB_1 Performing Organization Address City/State/ZIP Code Phon e Number [facility] [phone] [facility] [address] [address] documented in this encounter Visit Diagnoses Diagnosis DVT (deep venous thrombosis) ([facility]) Acute venous embolism and thrombosis of unspecified deep vessels of lower extremity documented in this encounter Care Teams Dishroom Attendant Relationship Specialty Start Date End Date Jose Colin DO PCP - General 12/24/03 09/17/08 [address] [place] [address] documented as of this encounter
--- OUTSIDE RECORDS SUMMARY | 2022-02-02 09:26 | XMS_ITS | Encounter Summary ---
:1965 Author [facility] Address [address] [place] [address] Care Team Providers Name Role Phone Jose Colin DO Primary Care Provider [phone] Encounter Details Date Type Department Care Team Description 10/03/2007 Orders Only [facility] DVT (Deep Venous [address] Thrombosis) [place], [place] [id number] Social History Tobacco Use Types Packs/Day Years [...] 14.5 sec Coumadin Yes [facility] INR 1.4 [facility] Specimen Anatomical Collection Method Collection Time Receive d Time (Source) Location / / Volume Laterality 10/03/2007 7:27 AM 8 7:28 CDT AM CDT Jose Colin DO LAB_1 Performing Organization Address City/State/ZIP Code Phon e Number [facility] [phone] [facility] [address] [address] documented in this encounter Visit Diagnoses Diagnosis DVT (deep venous thrombosis) ([facility]) Acute venous embolism and thrombosis of unspecified deep vessels of lower extremity documented in this encounter Care Teams Color Mixer Relationship Specialty Start Date End Date Jose Colin DO PCP - General 12/24/03 09/17/08 [address] [place] [address] documented as of this encounter
--- OUTSIDE RECORDS SUMMARY | 2022-02-02 09:26 | XMS_ITS | Encounter Summary ---
:1965 Author Organization [facility] Address [address], [place] [address] Care Team Providers Name Role Phone Jose Colin DO Primary Care Provider [phone] Encounter Details Date Type Department Care Team Description 05/20/2007 [facility] Internal Med Wilda Burton RN 205 [place] [address] [address] [phone] [place], [place] [address] Social History Tobacco Use Types Packs/Day Years Used Date Smoking Tobacco: Never Alcohol Use Standard Drinks/Week Comments Yes 0 (1 standard drink = 0.6 oz pure alcoho l) rarely Sex Assigned at Date Recorded Not on file documented as of this encounter Progress Notes Wilda Anand - 05/20/2007 3:09 PM CST See Anticoagulation Flowsheet for details. Wilda Burch RN IED COMMUNICATIONS ARCHITECT documented in this encounter Plan of Treatment Not on filedocumented as of this encounter Visit Diagnoses Not on filedocumented in this encounter Care Teams Manager Program Management Relationship Specialty Start Date End Date Jose Colin, PCP - General 12/24/03 09/17/08 [address] [facility] [address] documented as of this encounter
--- OUTSIDE RECORDS SUMMARY | 2022-02-02 09:26 | XMS_ITS | Encounter Summary ---
:1965 [facility] Address [address] [place] [address] Care Team Providers Name Role Phone Jose Colin DO Primary Care Provider [phone] Encounter Details Date Type Department Care Team Description 05/29/2007 Orders Only [facility] DVT (Deep Venous [address] Thrombosis) [place], [place] [id number] Social History Tobacco Use Types Packs/Day Years [...] DVT (Deep Venous Resul ts for this FORMULA ROOM WORKER Thrombosis) procedure are i n the results section . documented in this encounter Results (ABNORMAL) INR/PROTIME (05/29/2007 8:08 AM FORMULA ROOM WORKER) P athologist Signature Protime 41.3 (H) 12.0 - [facility] 14.5 sec Coumadin Yes [facility] INR 4.2 COUNTS INCLUDE 234 [facility] AT [facility] Specimen Anatomical Collection Method Collection Time Receive d Time (Source) Location / / Volume Laterality 05/29/2007 8:08 AM 7 8:09 FORMULA ROOM WORKER AM FORMULA ROOM WORKER Jose Colin DO LAB_1 Performing Organization Address City/State/ZIP Code Phon e Number [facility] [phone] [facility] [address] [address] documented in this encounter Visit Diagnoses Diagnosis DVT (deep venous thrombosis) ([facility]) Acute venous embolism and thrombosis of unspecified deep vessels of lower extremity documented in this encounter Care Teams Flare Breaker Relationship Specialty Start Date End Date Jose Colin DO PCP - General 12/24/03 09/17/08 [address] [place] [address] documented as of this encounter
--- OUTSIDE RECORDS SUMMARY | 2022-02-02 09:26 | XMS_ITS | Encounter Summary ---
:1965 Author Organization [facility] Address [address] [address] Care Team Providers Name Role Phone Jose Colin DO Primary Care Provider [phone] Encounter Details Date Type Department Care Team Description 08/28/2007 Orders Only [facility] Radiology [address] [place] [address] Social History Tobacco Use Types [...] on filedocumented in this encounter Care Teams Gambling Box Person Relationship Specialty Start Date End Date Jose Colin DO PCP - General 12/24/03 09/17/08 [address] [place] [address] documented as of this encounter
--- OUTSIDE RECORDS SUMMARY | 2022-02-02 09:26 | XMS_ITS | Encounter Summary ---
:1965 Author Organization [facility] Address [address] [address] Care Team Providers Name Role Phone Jose Colin DO Primary Care Provider [phone] Encounter Details Date Type Department Care Team Description 06/17/2007 [facility] Internal Med Wilda Burton RN 205 [place] [address] [address] [facility] [address] [phone] [place], [place] [address] Social History Tobacco Use Types Packs/Day Years Used Date Smoking Tobacco: Never Alcohol Use Standard Drinks/Week Comments Yes 0 (1 standard drink = 0.6 oz pure alcoho l) rarely Sex Assigned at Date Recorded Not on file documented as of this encounter Progress Notes Wilda Anand - 06/17/2007 3:51 PM CST See Anticoagulation Flowsheet for details. Wilda Burch RN MESSENGER documented in this encounter Plan of Treatment Not on filedocumented as of this encounter Visit Diagnoses Not on filedocumented in this encounter Care Teams Foley Artist Relationship Specialty Start Date End Date Jose Colin, PCP - General 12/24/03 09/17/08 [address] [facility] [address] documented as of this encounter
--- OUTSIDE RECORDS SUMMARY | 2022-02-02 09:26 | XMS_ITS | Encounter Summary ---
:1965 [facility] Address [address] [place] [address] Care Team Providers Name Role Phone Jose Colin DO Primary Care Provider Encounter Details Date Type Department Care Team Description 07/01/2007 Orders Only [facility] DVT (Deep Venous [address] Thrombosis) [place], [place] [phone] Social History Tobacco Use Types Packs/Day Years [...] DVT (Deep Venous Resul ts for this PERSONNEL ADVISER Thrombosis) procedure are i n the results section . documented in this encounter Results (ABNORMAL) INR/PROTIME (07/01/2007 7:45 AM PERSONNEL ADVISER) P athologist Signature Protime 31.3 (H) 12.0 - [facility] 14.5 sec Coumadin Yes [facility] INR 2.9 [facility] Specimen Anatomical Collection Method Collection Time Receive d Time (Source) Location / / Volume Laterality 07/01/2007 7:45 AM 8 7:46 PERSONNEL ADVISER AM PERSONNEL ADVISER Jose Coiln DO LAB_1 Performing Organization Address City/State/ZIP Code Phon e Number [facility] [phone] [facility] [address] [address] documented in this encounter Visit Diagnoses Diagnosis DVT (deep venous thrombosis) ([facility]) Acute venous embolism and thrombosis of unspecified deep vessels of lower extremity documented in this encounter Care Teams Spanish Linguist Relationship Specialty Start Date End Date Jose Colin DO PCP - General 12/24/03 09/17/08 [address] [place] [address] documented as of this encounter
--- OUTSIDE RECORDS SUMMARY | 2022-02-02 09:26 | XMS_ITS | Encounter Summary ---
:1965 Author Organization [facility] Address [address] [address] Care Team Providers Name Role Phone Jose Colin DO Primary Care Provider [phone] Encounter Details Date Type Department Care Team Description 06/03/2007 [facility] Internal Med Wilda Burton RN 205 [place] [address] [address] [phone] [place], [place] [address] Social History Tobacco Use Types Packs/Day Years Used Date Smoking Tobacco: Never Alcohol Use Standard Drinks/Week Comments Yes 0 (1 standard drink = 0.6 oz pure alcoho l) rarely Sex Assigned at Date Recorded Not on file documented as of this encounter Progress Notes Wilda Anand - 06/03/2007 2:23 PM CST See Anticoagulation Flowsheet for details. Wilda Burch RN TECHNOLOGY ENGINEERING TECHNICIAN documented in this encounter Plan of Treatment Not on filedocumented as of this encounter Visit Diagnoses Not on filedocumented in this encounter Care Teams Hand Etcher Helper Relationship Specialty Start Date End Date Jose Colin, PCP - General 12/24/03 09/17/08 [address] [facility] [address] documented as of this encounter
--- OUTSIDE RECORDS SUMMARY | 2022-02-02 09:26 | XMS_ITS | Encounter Summary ---
:1965 Author Organization [facility] Address [address] [place] [address] Care Team Providers Name Role Phone Jose Colin DO Primary Care Provider [phone] Encounter Details Date Type Department Care Team Description 08/26/[address] [facility] Internal Med icine Jose Colin, [address] [place] [address] 989 [facility] [address] [place] [address] (Wo rk) Social History Tobacco [...] on filedocumented in this encounter Care Teams Communications Equipment Operator Relationship Specialty Start Date End Date Jose Colin DO PCP - General 12/24/03 09/17/08 [address] [place] [address] documented as of this encounter
--- OUTSIDE RECORDS SUMMARY | 2022-02-02 09:26 | XMS_ITS | Encounter Summary ---
:1965 Author Organization [facility] Address [address] [address] Care Team Providers Name Role Phone Jose Colin DO Primary Care Provider [phone] Encounter Details Date Type Department Care Team Description 06/12/2007 [facility] Internal Med Thea Carmona, RERE 205 [place] [address] [address] [phone] [place], [place] [address] Social History Tobacco Use Types [...] filedocumented in this encounter Care Teams Director Digital Advertising Relationship Specialty Start Date End Date Jose Colin DO PCP - General 12/24/03 09/17/[address] [place] [address] documented as of this encounter
--- OUTSIDE RECORDS SUMMARY | 2022-02-02 09:26 | XMS_ITS | Encounter Summary ---
:1965 Author Organization [facility] Address [address] [address] Care Team Providers Name Role Phone Dungjosé antonioelbaJose medina Primary Care Provider [phone] Encounter Details Date Type Department Care Team Description 05/23/2007 Orders Only [facility] DVT (Deep Venous [address] Thrombosis) [place], [place] [id number] Social History Tobacco Use Types Packs/Day Years [...] (Deep Venous Res ults for this COUNT-W/DIFF TOOL GRINDER OPERATOR EXTERNAL Thrombosis) procedure are i n the results section. INR/PROTIME Same Day 05/23/2007 8:09 AM DVT (Deep Venous Resul ts for this TOOL GRINDER OPERATOR EXTERNAL Thrombosis) procedure are i n the results section. documented in this encounter Results HEMOGRAM/PLTS/DIFF (05/23/2007 8:09 AM TOOL GRINDER OPERATOR EXTERNAL) Analysis Performed At Patho logist Time Signature WBC 7.3 4.0 - 11.0 [facility] k/ul RBC 4.26 4.0 - 5.2 [facility] M/ul Hemoglobin 13.3 12.0 - [facility] 16.0 g/dl HCT 38.7 36.0 - [facility] 46.0 % MCV 90.7 80 - 100 [facility] fl MCH 31.2 26 - 34 pg [facility] MCHC 34.4 32 - 36 % [facility] RDW 12.5 11.5 - [facility] 14.5 % Platelets 307 150 - 450 [facility] k/ul PMN/Band 58 43 - 72 % [facility] Lymph 34 17 - 43 % [facility] Coos 5 4 - 12 % [facility] Eos 3 0 - 8 % [facility] Baso 1 0 - 1 % [facility] Neutrophil 4.2 1.8 - 7.7 [facility] Absolute k/ul Lymph Absolute 2.4 1.0 - 4.8 [facility] k/ul Coos Absolute 0.4 0.1 - 0.7 [facility] k/ul Eos Absolute 0.2 0.0 - 0.5 [facility] k/ul Baso Absolute 0.0 0.0 - 0.2 [facility] k/ul Specimen Anatomical Collection Method Collection Time Receive d Time (Source) Location / / Volume Laterality 05/23/2007 8:09 AM 7 8:11 TOOL GRINDER OPERATOR EXTERNAL AM TOOL GRINDER OPERATOR EXTERNAL Jose Colin DO LAB_1 Performing Organization Address City/[facility] Code Phon e Number [facility] [phone] [address] (ABNORMAL) INR/PROTIME (05/23/2007 8:09 AM TOOL GRINDER OPERATOR EXTERNAL) P athologist Signature Protime 24.1 (H) 12.0 - [facility] 14.5 sec Coumadin Yes [facility] INR 2.1 [facility] Specimen Anatomical Collection Method Collection Time Receive d Time (Source) Location / / Volume Laterality 05/23/2007 8:09 AM 7 8:11 TOOL GRINDER OPERATOR EXTERNAL AM TOOL GRINDER OPERATOR EXTERNAL Jose Colin DO LAB_1 Performing Organization Address City[facility] Phon e Number [employer] [phone] [address] documented in this encounter Visit Diagnoses Diagnosis DVT (deep venous thrombosis) ([facility]) Acute venous embolism and thrombosis of unspecified deep vessels of lower extremity documented in this encounter Care Teams Home Appliance Installer Relationship Specialty Start Date End Date Jose Colin DO PCP - General 12/24/03 09/17/08 [address] [place] [address] documented as of this encounter
--- OUTSIDE RECORDS SUMMARY | 2022-02-02 09:26 | XMS_ITS | Encounter Summary ---
:1965 Author Organization [facility] Address [address] [place] [address] Care Team Providers Name Role Phone Jose Stack DO Primary Care Provider Reason for Visit Reason Onset Date Comments Refill 09/23/2007 Encounter Details Date Type Department Care Team Description 09/23/2007 Refill [facility] Internal Med Wilda Burton RN Refill [address] [place] [address] [address] [phone] [place], [place] [address] Social History Tobacco Use Types [...] migrainosus documented in this encounter Care Teams Portfolio Accountant Relationship Specialty Start Date End Date Jose Stack, PCP - General 12/24/03 09/17/[address] [place] [place] [address] documented as of this encounter
--- OUTSIDE RECORDS SUMMARY | 2022-02-02 09:26 | XMS_ITS | Encounter Summary ---
:1965 Author Organization [facility] Address [address], [place] [address] Care Team Providers Name Role Phone Jose Colin DO Primary Care Provider [phone] Encounter Details Date Type Department Care Team Description 08/26/2007 [facility] Internal Med Wilda Burton RN [address] [place] [address] [address] [phone] [place], [place] [address] Social History Tobacco Use Types [...] on filedocumented in this encounter Care Teams Printed Circuit Board Designer Relationship Specialty Start Date End Date Jose Colin, PCP - General 12/24/03 09/17/[address] [place] [address] [address] documented as of this encounter
--- OUTSIDE RECORDS SUMMARY | 2022-02-02 09:26 | XMS_ITS | Encounter Summary ---
:1965 Author Organization [facility] Address [address], [place] [address] Care Team Providers Name Role Phone Jose Colin DO Primary Care Provider [phone] Encounter Details Date Type Department Care Team Description 10/03/2007 [facility] Internal Med Wilda Burton RN [address] [place] [address] [address] [phone] [place], [place] [address] Social History Tobacco Use Types [...] on filedocumented in this encounter Care Teams Medicine Aide Relationship Specialty Start Date End Date Jose Colin, PCP - General 12/24/03 09/17/[address] [place] [address] [place] [address] documented as of this encounter
--- OUTSIDE RECORDS SUMMARY | 2022-02-02 09:26 | XMS_ITS | Encounter Summary ---
:1965 Author [facility] Address [address] [place] [address] Care Team Providers Name Role Phone Jose Colin DO Primary Care Provider [phone] Reason for Visit Reason Onset Date Comments LETTER NEEDED 05/28/2007 Encounter Details Date Type Department Care Team Description 05/28/2007 Telephone [facility] Jose Witt, LETTER NEEDED [address] [place] [address] 829 [facility] [phone] [place] [address] (Wo rk) Social History Tobacco Use Types Packs/Day Years Used Date Smoking Tobacco: Never Alcohol Use Standard Drinks/Week Comments Yes 0 (1 standard drink = 0.6 oz pure alcoho l) rarely Sex Assigned at Date Recorded Not on file documented as of this encounter Nursing Notes Hanna Shin - 05/28/2007 2:46 PM CST Pt will pick pulling machine tender letter JOINER CHAINSTITCH Jose Colin - 05/28/2007 2:02 PM CST Letter made Please contact pt to let he know it's done Jose Allan. DO [place] 2:02 PM 05/28/2007 JOINER CHAINSTITCH Emmie Lake - 05/28/2007 10:10 AM CST Pt needs letter for employer re her having INR tests. Pt needs detailed letter explaining she will have to have lab draws and may be late for work. The letter should explain how it is determined when she needs labs, since it really is not on a regular schedule. JOINER CHAINSTITCH documented in this encounter Plan of Treatment Not on filedocumented as of this encounter Visit Diagnoses Not on filedocumented in this encounter Care Teams Frame Repairer Relationship Specialty Start Date End Date Jose Colin, PCP - General 12/24/03 09/17/08 [address] [place] [address] documented as of this encounter
--- OUTSIDE RECORDS SUMMARY | 2022-02-02 09:26 | XMS_ITS | Encounter Summary ---
:1965 Author Organization [facility] Address [address], [place] [address] Care Team Providers Name Role Phone Jose Colin DO Primary Care Provider [phone] Encounter Details Date Type Department Care Team Description 06/10/2007 [facility] Internal Med Wilda Burton RN [address] [place] [address] [address] [phone] [place], [place] [address] Social History Tobacco Use Types Packs/Day Years Used Date Smoking Tobacco: Never Alcohol Use Standard Drinks/Week Comments Yes 0 (1 standard drink = 0.6 oz pure alcoho l) rarely Sex Assigned at Date Recorded Not on file documented as of this encounter Progress Notes Wilda Anand - 06/10/2007 5:11 PM CST See Anticoagulation Flowsheet for details. Wilda Burch RN ORATOR TYPIST documented in this encounter Plan of Treatment Not on filedocumented as of this encounter Visit Diagnoses Not on filedocumented in this encounter Care Teams Pilot Boat Deckhand Relationship Specialty Start Date End Date Jose Colin, PCP - General 12/24/03 09/17/08 [address] [facility] [address] documented as of this encounter
--- OUTSIDE RECORDS SUMMARY | 2022-02-02 09:26 | XMS_ITS | Encounter Summary ---
:1965 Author Organization [facility] Address [address] [address] Care Team Providers Name Role Phone Jose Colin DO Primary Care Provider [phone] Encounter Details Date Type Department Care Team Description 05/29/2007 [facility] Internal Med Wilda Burton RN [address] [place] [address] [address] [phone] [place], [place] [address] Social History Tobacco Use Types Packs/Day Years Used Date Smoking Tobacco: Never Alcohol Use Standard Drinks/Week Comments Yes 0 (1 standard drink = 0.6 oz pure alcoho l) rarely Sex Assigned at Date Recorded Not on file documented as of this encounter Progress Notes Wilda Anand - 05/29/2007 4:11 PM CST See Anticoagulation Flowsheet for details. Wilda Burch RN VISION PRODUCTION CLERK documented in this encounter Plan of Treatment Not on filedocumented as of this encounter Visit Diagnoses Not on filedocumented in this encounter Care Teams Hydraulic Dredge Operator Relationship Specialty Start Date End Date Jose Colin, PCP - General 12/24/03 09/17/08 [address] [facility] [address] documented as of this encounter
--- OUTSIDE RECORDS SUMMARY | 2022-02-02 09:26 | XMS_ITS | Encounter Summary ---
:1965 Author Organization [facility] Address [address], [place] [address] Care Team Providers Name Role Phone Jose Colin DO Primary Care Provider [phone] Encounter Details Date Type Department Care Team Description 08/12/2007 [facility] Internal Med Wilda Burton RN [address] [place] [address] [address] [phone] [place], [place] [address] Social History Tobacco Use Types Packs/Day Years Used Date Smoking Tobacco: Never Alcohol Use Standard Drinks/Week Comments Yes 0 (1 standard drink = 0.6 oz pure alcoho l) rarely Sex Assigned at Date Recorded Not on file documented as of this encounter Progress Notes Wilda Anand - 08/12/2007 2:19 PM CST See Anticoagulation Flowsheet for details. Wilda Burch RN R SET UP OPERATOR documented in this encounter Plan of Treatment Not on filedocumented as of this encounter Visit Diagnoses Not on filedocumented in this encounter Care Teams Infantry Indirect Fire Crewmember Relationship Specialty Start Date End Date Jose Colin, PCP - General 12/24/03 09/17/08 [address] [facility] [address] documented as of this encounter
--- OUTSIDE RECORDS SUMMARY | 2022-02-02 09:26 | XMS_ITS | Encounter Summary ---
:1965 Author Organization [facility] Address [address] [address] Care Team Providers Name Role Phone Jose Colin DO Primary Care Provider [phone] Encounter Details Date Type Department Care Team Description 07/15/2007 [facility] Internal Med Wilda Burton RN [address] [place] [address] [address] [phone] [place], [place] [address] Social History Tobacco Use Types Packs/Day Years Used Date Smoking Tobacco: Never Alcohol Use Standard Drinks/Week Comments Yes 0 (1 standard drink = 0.6 oz pure alcoho l) rarely Sex Assigned at Date Recorded Not on file documented as of this encounter Progress Notes Wilda Anand - 07/15/2007 2:38 PM CST See Anticoagulation Flowsheet for details. Wilda Burch RN GER PLACEMENT documented in this encounter Plan of Treatment Not on filedocumented as of this encounter Visit Diagnoses Not on filedocumented in this encounter Care Teams Solid State Tester Relationship Specialty Start Date End Date Jose Colin, PCP - General 12/24/03 09/17/08 [address] [facility] [address] documented as of this encounter
--- OUTSIDE RECORDS SUMMARY | 2022-02-02 09:26 | XMS_ITS | Encounter Summary ---
:1965 [facility] Address [address] [place] [address] Care Team Providers Name Role Phone Jose Colin DO Primary Care Provider Encounter Details Date Type Department Care Team Description 06/10/2007 Orders Only [facility] DVT (Deep Venous [address] Thrombosis) [place], [place] [id number] Social History Tobacco Use Types Packs/Day Years [...] DVT (Deep Venous Resul ts for this ESTATE ADMINISTRATOR Thrombosis) procedure are i n the results section . documented in this encounter Results (ABNORMAL) INR/PROTIME (06/10/2007 9:04 AM ESTATE ADMINISTRATOR) P athologist Signature Protime 28.8 (H) 12.0 - [facility] 14.5 sec Coumadin Yes [facility] INR 2.6 [facility] Specimen Anatomical Collection Method Collection Time Receive d Time (Source) Location / / Volume Laterality 06/10/2007 9:04 AM 7 9:05 ESTATE ADMINISTRATOR AM ESTATE ADMINISTRATOR Jose Colin DO LAB_1 Performing Organization Address City/State/ZIP Code Phon e Number [facility] [phone] [facility] [address] [address] documented in this encounter Visit Diagnoses Diagnosis DVT (deep venous thrombosis) ([facility]) Acute venous embolism and thrombosis of unspecified deep vessels of lower extremity documented in this encounter Care Teams Lead Producer Relationship Specialty Start Date End Date Jose Colin DO PCP - General 12/24/03 09/17/08 [address] [place] [address] documented as of this encounter
--- OUTSIDE RECORDS SUMMARY | 2022-02-02 09:26 | XMS_ITS | Encounter Summary ---
:1965 Author [facility] Address [address] [place] [address] Care Team Providers Name Role Phone Jose Colin DO Primary Care Provider [phone] Encounter Details Date Type Department Care Team Description 09/23/2007 Orders Only [facility] DVT (Deep Venous [address] Thrombosis) [place], [place] [id number] Social History Tobacco Use Types Packs/Day Years [...] [facility] 14.5 sec Coumadin Yes [facility] 1.2 [facility] Specimen Anatomical Collection Method Collection Time Receive d Time (Source) Location / / Volume Laterality 09/23/2007 7:32 AM 8 7:35 CDT AM CDT Jose Colin DO LAB_1 Performing Organization Address City/State/ZIP Code Phon e Number [facility] [phone] [facility] [address] [address] documented in this encounter Visit Diagnoses Diagnosis DVT (deep venous thrombosis) ([facility]) Acute venous embolism and thrombosis of unspecified deep vessels of lower extremity documented in this encounter Care Teams Patient Svcs Mgr Relationship Specialty Start Date End Date Jose Colin DO PCP - General 12/24/03 09/17/08 [address] [place] [address] documented as of this encounter
--- OUTSIDE RECORDS SUMMARY | 2022-02-02 09:26 | XMS_ITS | Encounter Summary ---
:1965 [facility] Address [address] [place] [address] Care Team Providers Name Role Phone Jose Colin DO Primary Care Provider [phone] Encounter Details Date Type Department Care Team Description 08/12/2007 Orders Only [facility] DVT (Deep Venous [address] Thrombosis) [place], [place] [id number] Social History Tobacco Use Types Packs/Day Years [...] DVT (Deep Venous Resul ts for this CRYPTANALYST Thrombosis) procedure are i n the results section . documented in this encounter Results (ABNORMAL) INR/PROTIME (08/12/2007 7:33 AM CRYPTANALYST) P athologist Signature Protime 33.3 (H) 12.0 - [facility] 14.5 sec Coumadin Yes [facility] INR 3.2 [facility] Specimen Anatomical Collection Method Collection Time Receive d Time (Source) Location / / Volume Laterality 08/12/2007 7:33 AM 8 7:35 CRYPTANALYST AM CRYPTANALYST Jose Colin DO LAB_1 Performing Organization Address City/State/ZIP Code Phon e Number [facility] [phone] [facility] [address] [address] documented in this encounter Visit Diagnoses Diagnosis DVT (deep venous thrombosis) ([facility]) Acute venous embolism and thrombosis of unspecified deep vessels of lower extremity documented in this encounter Care Teams Flower Maker Relationship Specialty Start Date End Date Jose Colin DO PCP - General 12/24/03 09/17/08 [address] [place] [address] documented as of this encounter
--- OUTSIDE RECORDS SUMMARY | 2022-02-02 09:26 | XMS_ITS | Encounter Summary ---
:1965 Author Organization [facility] [address] [place] [address] Care Team Providers Name Role Phone Jose Colin DO Primary Care Provider [phone] Reason for Referral Specialty Diagnoses / Procedures Referred By Contact Refer red To Contact Jose Colin DO [address] [place], [place] [phone] Referral ID Status Reason Start Date Expiration Date Visits Requ ested Visits Authorized Scheduling Instructions If an appointment with [facility] stroenterology was advised and you have not been contacted to schedule that appointm ent within 3 business days, please call [phone] for assistance. Specialty Diagnoses / Procedures Referred By Contact Refer olga To Contact Jose Colin DO [address] [place], [place] [address] Referral ID Status Reason Start Date Expiration Date Visits Requ ested Visits Authorized Reason for Visit Reason Comments HEADACHE,MIGRAINE f/u visit DIFFICULTY SWALLOWING and digestive problems CHEST SYMPTOMS a weight and cold feeling CONSULT about the clot and tx Encounter Details Date Type Department Care Team Description 08/23/2007 Office Visit [facility] Internal [place] DVT (Deep V enous Thrombosis) (Primary Dx); Medicine Jose Allan DO Migraine; 205 [facility] [address] Diarrhea; [place] [address] [facility] [phone] [address] Social History Tobacco Use Types Packs/Day [...] Visit Diagnoses Diagnosis DVT (deep venous thrombosis) ([facility]) - [facility] Acute venous embolism and thrombosis of unspecified deep vessels of lower extremity Migraine Migraine, unspecified, without mention o f intractable migraine without mention of status migrainosus Diarrhea Dysphagia Dysphagia, unspecified documented in this encounter Care Teams Sheriffs Relationship Specialty Start Date End Date Jose Colin DO PCP - General 12/24/03 09/17/08 [address] [place] [address] documented as of this encounter
--- OUTSIDE RECORDS SUMMARY | 2022-02-02 09:26 | XMS_ITS | Encounter Summary ---
:1965 Author Organization [facility] Address [address] [place] [address] Care Team Providers Name Role Phone Jose Colin DO Primary Care Provider [phone] Encounter Details Date Type Department Care Team Description 05/30/2007 Orders Only [facility] DVT (Deep Venous [address] Thrombosis) [place], [place] [id number] Social History Tobacco Use Types Packs/Day Years [...] DVT (Deep Venous Resu lts for this RESOURCE DIRECTOR Thrombosis) procedure are i n the results section . documented in this encounter Results (ABNORMAL) INR/PROTIME (05/30/2007 10:59 AM RESOURCE DIRECTOR) P athologist Signature Protime 34.8 (H) 12.0 - [facility] 14.5 sec Coumadin Yes [facility] INR 3.4 [facility] Specimen Anatomical Collection Method Collection Time Receive d Time (Source) Location / / Volume Laterality 05/30/2007 10:59 05/30/2007 AM RESOURCE DIRECTOR 11:00 AM RESOURCE DIRECTOR Jose Colin DO LAB_1 Performing Organization Address City/State/ZIP Code Phon e Number [facility] [phone] [facility] [address] [address] documented in this encounter Visit Diagnoses Diagnosis DVT (deep venous thrombosis) ([facility]) Acute venous embolism and thrombosis of unspecified deep vessels of lower extremity documented in this encounter Care Teams Speech Instructor Relationship Specialty Start Date End Date Jose Colin DO PCP - General 12/24/03 09/17/08 [address] [place] [address] documented as of this encounter
--- OUTSIDE RECORDS SUMMARY | 2022-02-02 09:26 | XMS_ITS | Encounter Summary ---
:1965 Author [facility] Address [address] [place] [address] Care Team Providers Name Role Phone Jose Colin DO Primary Care Provider [phone] Encounter Details Date Type Department Care Team Description 07/15/2007 Orders Only [facility] DVT (Deep Venous [address] Thrombosis) [place], [place] [phone] Social History Tobacco Use Types Packs/Day Years [...] DVT (Deep Venous Resul ts for this ROLLER OPERATOR Thrombosis) procedure are i n the results section . documented in this encounter Results (ABNORMAL) INR/PROTIME (07/15/2007 7:31 AM ROLLER OPERATOR) P athologist Signature Protime 26.3 (H) 12.0 - [facility] 14.5 sec Coumadin Yes [facility] INR 2.3 [facility] Specimen Anatomical Collection Method Collection Time Receive d Time (Source) Location / / Volume Laterality 07/15/2007 7:31 AM 8 7:32 ROLLER OPERATOR AM ROLLER OPERATOR Jose Colin DO LAB_1 Performing Organization Address City/State/ZIP Code Phon e Number [facility] [phone] [facility] [address] [address] documented in this encounter Visit Diagnoses Diagnosis DVT (deep venous thrombosis) ([facility] Acute venous embolism and thrombosis of unspecified deep vessels of lower extremity documented in this encounter Care Teams Pastry Cook Apprentice Relationship Specialty Start Date End Date Jose Colin DO PCP - General 12/24/03 09/17/08 [address] [place] [address] documented as of this encounter
--- OUTSIDE RECORDS SUMMARY | 2022-02-02 09:26 | XMS_ITS | Encounter Summary ---
:1965 Author Organization [facility] Address [address] [place] [address] Care Team Providers Name Role Phone Jose Colin DO Primary Care Provider [phone] Reason for Visit Reason Onset Date Comments Careplan: Anticoagulation 09/24/2007 Encounter Details Date Type Department Care Team Description 09/24/2007 Telephone [facility] Internal Stephanie Colinplan: [facility] Medicine Jose Allan DO 205 [facility] [address] [place] [address] [place] [phone] [address] Social History Tobacco Use Types Packs/Day [...] on filedocumented in this encounter Care Teams Analytical Laboratory Technician Relationship Specialty Start Date End Date Jose Colin DO PCP - General 12/24/03 09/17/08 [address] [place] [address] documented as of this encounter
--- OUTSIDE RECORDS SUMMARY | 2022-02-02 09:26 | XMS_ITS | Encounter Summary ---
:1965 Author Organization [facility] Address [address], [place] [address] Care Team Providers Name Role Phone Jose Colin DO Primary Care Provider [phone] Encounter Details Date Type Department Care Team Description 09/23/2007 [facility] Internal Med Wilda Burton RN 205 [place] [address] [address] [phone] [place], [place] [address] Social History Tobacco Use Types [...] filedocumented in this encounter Care Teams Manager Nicu Relationship Specialty Start Date End Date Jose Colin, PCP - General 12/24/03 09/17/[address] [place] [address] [place] [address] documented as of this encounter
--- OUTSIDE RECORDS SUMMARY | 2022-02-02 09:26 | XMS_ITS | Encounter Summary ---
:1965 Author Organization [facility] Address [address], [place] [address] Care Team Providers Name Role Phone Jose Colin DO Primary Care Provider [phone] Encounter Details Date Type Department Care Team Description 05/23/2007 [facility] Internal Med Wilda Burton RN 205 [place] [address] [address] [phone] [place], [place] [address] Social History Tobacco Use Types Packs/Day Years Used Date Smoking Tobacco: Never Alcohol Use Standard Drinks/Week Comments Yes 0 (1 standard drink = 0.6 oz pure alcoho l) rarely Sex Assigned at Date Recorded Not on file documented as of this encounter Progress Notes Wilda Anand - 05/23/2007 3:08 PM CST See Anticoagulation Flowsheet for details. Wilda Burch RN KMAKER documented in this encounter Plan of Treatment Not on filedocumented as of this encounter Visit Diagnoses Not on filedocumented in this encounter Care Teams Lathe Tender Relationship Specialty Start Date End Date Jose Colin, PCP - General 12/24/03 09/17/08 [address] [facility] [address] documented as of this encounter
--- OUTSIDE RECORDS SUMMARY | 2022-02-02 09:26 | XMS_ITS | Encounter Summary ---
:1965 Author Organization [facility] Address [address] [place] [address] Care Team Providers Name Role Phone Jose Colin DO Primary Care Provider [phone] Encounter Details Date Type Department Care Team Description 06/03/2007 Orders Only [place] [facility] DVT (Deep Venous [address] Thrombosis) [place], [place] [id number] Social History Tobacco Use Types Packs/Day Years [...] DVT (Deep Venous Resul ts for this SENIOR SUPPLIER QUALITY ENGINEER Thrombosis) procedure are i n the results section . documented in this encounter Results (ABNORMAL) INR/PROTIME (06/03/2007 8:53 AM SENIOR SUPPLIER QUALITY ENGINEER) P athologist Signature Protime 24.7 (H) 12.0 - [facility] 14.5 sec Coumadin Yes [facility]2 [facility] Specimen Anatomical Collection Method Collection Time Receive d Time (Source) Location / / Volume Laterality 06/03/2007 8:53 AM 7 8:54 SENIOR SUPPLIER QUALITY ENGINEER AM SENIOR SUPPLIER QUALITY ENGINEER Jose Colin DO LAB_1 Performing Organization Address City/State/ZIP Code Phon e Number [facility] [phone] [facility] [address] [address] documented in this encounter Visit Diagnoses Diagnosis DVT (deep venous thrombosis) ([facility]) Acute venous embolism and thrombosis of unspecified deep vessels of lower extremity documented in this encounter Care Teams Real Estate Firm Manager Relationship Specialty Start Date End Date Jose Colin DO PCP - General 12/24/03 09/17/08 [address] [place] [address] documented as of this encounter
--- OUTSIDE RECORDS SUMMARY | 2022-02-02 09:26 | XMS_ITS | Encounter Summary ---
:1965 Author Organization [facility] Address [address] [place] [address] Care Team Providers Name Role Phone Jose Colin DO Primary Care Provider [phone] Reason for Visit Reason Onset Date Comments Careplan: Anticoagulation 05/30/2007 Encounter Details Date Type Department Care Team Description 05/30/2007 Telephone [facility] Internal Stephanie Colinplan: [facility] Medicine Jose Allan DO 205 [facility] [address] [place] [address] [place], [place] [phone] [address] Social History Tobacco Use Types Packs/Day Years Used Date Smoking Tobacco: Never Alcohol Use Standard Drinks/Week Comments Yes 0 (1 standard drink = 0.6 oz pure alcoho l) rarely Sex Assigned at Date Recorded Not on file documented as of this encounter Nursing Notes Wilda Anand - 05/30/2007 4:51 PM CST See Anticoagulation Flowsheet for details. Wilda Burch RN RVISOR ELEMENTARY EDUCATION [place]ie [place] - 05/30/2007 4:42 PM CST Pt calling for INR result. RVISOR ELEMENTARY EDUCATION documented in this encounter Plan of Treatment Not on filedocumented as of this encounter Visit Diagnoses Not on filedocumented in this encounter Care Teams Dredge Pipeman Relationship Specialty Start Date End Date Jose Colin DO PCP - General 12/24/03 09/17/08 [address] [place] [address] documented as of this encounter
--- OUTSIDE RECORDS SUMMARY | 2022-02-02 09:26 | XMS_ITS | Encounter Summary ---
:1965 Author Organization [facility] Address [address] [address] Care Team Providers Name Role Phone Jose Colin DO Primary Care Provider [phone] Encounter Details Date Type Department Care Team Description 05/30/2007 [facility] Internal Med Wilda Burton RN 205 [place] [address] [address] [phone] [place], [place] [address] Social History Tobacco Use Types Packs/Day Years Used Date Smoking Tobacco: Never Alcohol Use Standard Drinks/Week Comments Yes 0 (1 standard drink = 0.6 oz pure alcoho l) rarely Sex Assigned at Date Recorded Not on file documented as of this encounter Progress Notes Wilda Anand - 05/30/2007 4:51 PM CST See Anticoagulation Flowsheet for details. Wilda Burch RN NOSTIC ASSISTANT documented in this encounter Plan of Treatment Not on filedocumented as of this encounter Visit Diagnoses Not on filedocumented in this encounter Care Teams Mill Roll Operator Relationship Specialty Start Date End Date Jose Colin, PCP - General 12/24/03 09/17/08 [address] [facility] [facility] [address] documented as of this encounter
--- OUTSIDE RECORDS SUMMARY | 2022-02-02 09:26 | XMS_ITS | Encounter Summary ---
:1965 Author Organization [facility] Address [address] [place] [address] Care Team Providers Name Role Phone Jose Colin DO Primary Care Provider [phone] Encounter Details Date Type Department Care Team Description 06/17/2007 Orders Only [place] [facility] DVT (Deep Venous [address] Thrombosis) [place], [place] [id number] Social History Tobacco Use Types Packs/Day Years [...] DVT (Deep Venous Resul ts for this OPERATING SYSTEMS SPECIALIST Thrombosis) procedure are i n the results section . documented in this encounter Results (ABNORMAL) INR/PROTIME (06/17/2007 8:01 AM OPERATING SYSTEMS SPECIALIST) P athologist Signature Protime 30.0 (H) 12.0 - [facility] 14.5 sec [facility]madin Yes [facility]8 [facility] Specimen Anatomical Collection Method Collection Time Receive d Time (Source) Location / / Volume Laterality 06/17/2007 8:01 AM 8 8:02 OPERATING SYSTEMS SPECIALIST AM OPERATING SYSTEMS SPECIALIST Jose Colin DO LAB_1 Performing Organization Address City/State/ZIP Code Phon e Number [facility] [phone] [facility] [address] [address] documented in this encounter Visit Diagnoses Diagnosis DVT (deep venous thrombosis) ([facility]) Acute venous embolism and thrombosis of unspecified deep vessels of lower extremity documented in this encounter Care Teams Book Sewer Relationship Specialty Start Date End Date Jose Colin DO PCP - General 12/24/03 09/17/08 [address] [place] [address] documented as of this encounter
--- OUTSIDE RECORDS SUMMARY | 2022-02-02 09:26 | XMS_ITS | Encounter Summary ---
:1965 Author Organization [facility] Address [address], [place] [address] Care Team Providers Name Role Phone Jose Colin DO Primary Care Provider [phone] Encounter Details Date Type Department Care Team Description 07/01/2007 [facility] Internal Med Wilda Burton RN [address] [place] [address] [address] [phone] [place], [place] [address] Social History Tobacco Use Types Packs/Day Years Used Date Smoking Tobacco: Never Alcohol Use Standard Drinks/Week Comments Yes 0 (1 standard drink = 0.6 oz pure alcoho l) rarely Sex Assigned at Date Recorded Not on file documented as of this encounter Progress Notes Wilda Anand - 07/01/2007 4:11 PM CST See Anticoagulation Flowsheet for details. Wilda Burch RN AL TRANSPORTATION CLERK documented in this encounter Plan of Treatment Not on filedocumented as of this encounter Visit Diagnoses Not on filedocumented in this encounter Care Teams Vfx Artist Relationship Specialty Start Date End Date Jose Colin, PCP - General 12/24/03 09/17/08 [address] [facility] [facility] [address] documented as of this encounter
--- OUTSIDE RECORDS SUMMARY | 2022-02-02 09:26 | XMS_ITS | Encounter Summary ---
:1965 Author Organization [facility] Address [address] [place] [address] Care Team Providers Name Role Phone Jose Colin DO Primary Care Provider [phone] Reason for Visit Reason Onset Date Comments RESULTS, TEST 08/30/2007 Encounter Details Date Type Department Care Team Description 08/30/2007 Telephone [facility] Jose Witt, RESULTS, TEST 205 [place] [address] 311 [facility] [phone] [place] [address] (Wo rk) Social History Tobacco [...] on filedocumented in this encounter Care Teams Bottom Hoop Driver Relationship Specialty Start Date End Date Jose Colin DO PCP - General 12/24/03 09/17/08 [address] [place] [address] documented as of this encounter
--- OUTSIDE RECORDS SUMMARY | 2022-02-02 09:26 | XMS_ITS | Encounter Summary ---
:1965 Author Organization [facility] Address [address] [place] [address] Care Team Providers Name Role Phone Jose Colin DO Primary Care Provider [phone] Encounter Details Date Type Department Care Team Description 08/26/2007 Orders Only [place] [facility] DVT (Deep Venous [address] Thrombosis) [place], [place] [phone] Social History Tobacco Use Types Packs/Day Years [...] 12.0 - [facility] 14.5 sec Coumadin Yes [facility]R 2.9 [facility] Specimen Anatomical Collection Method Collection Time Receive d Time (Source) Location / / Volume Laterality 08/26/2007 7:44 AM 8 7:45 CDT AM CDT Jose Colin DO LAB_1 Performing Organization Address City/State/ZIP Code Phon e Number [facility] [phone] [facility] [address] [address] documented in this encounter Visit Diagnoses Diagnosis DVT (deep venous thrombosis) ([facility]) Acute venous embolism and thrombosis of unspecified deep vessels of lower extremity documented in this encounter Care Teams Narcotics Agent Relationship Specialty Start Date End Date Jose Colin DO PCP - General 12/24/03 09/17/08 [address] [place] [address] documented as of this encounter
--- OUTSIDE RECORDS SUMMARY | 2022-02-02 09:27 | XMS_ITS | Encounter Summary ---
:1965 Author Organization [facility] Address [address], [place] [address] Care Team Providers Name Role Phone Jose Colin DO Primary Care Provider [phone] Encounter Details Date Type Department Care Team Description 05/06/2007 [facility] Internal Med Wilda Burton RN [address] [place] [address] [address] [place] [phone] [place], [place] [address] Social History Tobacco Use Types Packs/Day Years Used Date Smoking Tobacco: Never Alcohol Use Standard Drinks/Week Comments Yes 0 (1 standard drink = 0.6 oz pure alcoho l) rarely Sex Assigned at Date Recorded Not on file documented as of this encounter Progress Notes Wilda Anand - 05/06/2007 3:53 PM CST See Anticoagulation Flowsheet for details. Wilda Burch RN STRY FARM LABORER documented in this encounter Plan of Treatment Not on filedocumented as of this encounter Visit Diagnoses Not on filedocumented in this encounter Care Teams Director Of Informatics Relationship Specialty Start Date End Date Jose Colin, PCP - General 12/24/03 09/17/08 599 [facility] [facility] [address] documented as of this encounter
--- OUTSIDE RECORDS SUMMARY | 2022-02-02 09:27 | XMS_ITS | Encounter Summary ---
:1965 Author Organization [facility] Address [address], [place] [address] Care Team Providers Name Role Phone Jose Colin DO Primary Care Provider [phone] Encounter Details Date Type Department Care Team Description 05/03/2007 Orders Only [place] DVT (Deep Venous [address] Thrombosis) [place], [place] [id number] Social History Tobacco Use Types Packs/Day Years Used Date Smoking Tobacco: Never Alcohol Use Standard Drinks/Week Comments Yes 0 (1 standard drink = 0.6 oz pure alcoho l) rarely Sex Assigned at Date Recorded Not on file documented as of this encounter Progress Notes Jose Colin - 05/27/2007 12:47 PM JAVA MANAGER Quick Note: ok to send letter Jose Colin DO 12:47 PM 05/27/2007 MANAGER documented in this encounter Plan of Treatment Not on filedocumented as of this encounter Procedures Procedure Name Priority Date/Time Associated Diagnosis Comme nts COMPLETE BLOOD Routine 05/03/2007 8:55 AM DVT (Deep Venous Res ults for this COUNT-W/DIFF JAVA MANAGER Thrombosis) procedure are i n the results section. INR/PROTIME Same Day 05/03/2007 8:55 AM DVT (Deep Venous Resul ts for this JAVA MANAGER Thrombosis) procedure are i n the results section. documented in this encounter Results (ABNORMAL) HEMOGRAM/PLTS/DIFF (05/03/2007 8:55 AM JAVA MANAGER) [facility] Method Time Signature WBC 6.9 4.0 - [...] 14.5 % Platelets 419 150 - 450 [facility] k/ul PMN/Band 40 (L) 43 - 72 % [facility] Lymph 49 (H) 17 - 43 % [facility] [place] 6 4 - 12 % [facility] Eos 3 0 - 8 % [facility] Baso 1 0 - 1 % [facility] Neutrophil 2.8 1.8 - 7.7 [facility] Absolute k/ul Lymph Absolute 3.4 1.0 - 4.8 [facility] k/ul [place] Absolute 0.4 0.1 - 0.7 [facility] k/ul Eos Absolute 0.2 0.0 - 0.5 [facility] k/ul Baso Absolute 0.1 0.0 - 0.2 [facility] k/ul Specimen Anatomical Collection Method Collection Time Receive d Time (Source) Location / / Volume Laterality 05/03/2007 8:55 AM 7 8:56 JAVA MANAGER AM JAVA MANAGER Jose Colin DO LAB_1 Performing Organization Address City/Special Care Hospital/ZIP Code Phon e Number [facility] [phone] [facility] [address] [place] [address] (ABNORMAL) INR/PROTIME (05/03/2007 8:55 AM JAVA MANAGER) P athologist Signature Protime 18.5 (H) 12.0 - [facility] 14.5 sec Coumadin Yes [facility] INR 1.5 [facility] Specimen Anatomical Collection Method Collection Time Receive d Time (Source) Location / / Volume Laterality 05/03/2007 8:55 AM 7 8:56 JAVA MANAGER AM JAVA MANAGER Jose Colin DO LAB_1 Performing Organization Address City/Special Care Hospital/ZIP Code Phon e Number [facility] [phone] [place] [phone] [address] documented in this encounter Visit Diagnoses Diagnosis DVT (deep venous thrombosis) ([facility]) Acute venous embolism and thrombosis of unspecified deep vessels of lower extremity documented in this encounter Care Teams Denture Technician Relationship Specialty Start Date End Date Jose Colin DO PCP - General 12/24/03 09/17/[address] [place] [address] documented as of this encounter
--- OUTSIDE RECORDS SUMMARY | 2022-02-02 09:27 | XMS_ITS | Encounter Summary ---
:1965 Author Organization [facility] Address [address], [place] [address] Care Team Providers Name Role Phone Jose Colin DO Primary Care Provider [phone] Encounter Details Date Type Department Care Team Description 05/10/2007 [facility] Internal Med Wilda Burton RN 205 [place] [address] [address] [phone] [place], [place] [address] Social History Tobacco Use Types Packs/Day Years Used Date Smoking Tobacco: Never Alcohol Use Standard Drinks/Week Comments Yes 0 (1 standard drink = 0.6 oz pure alcoho l) rarely Sex Assigned at Date Recorded Not on file documented as of this encounter Progress Notes Wilda Anand - 05/10/2007 3:37 PM CST See Anticoagulation Flowsheet for details. Wilda Burch RN OLOGY TECH documented in this encounter Plan of Treatment Not on filedocumented as of this encounter Visit Diagnoses Not on filedocumented in this encounter Care Teams Harvesting Contractor Relationship Specialty Start Date End Date Jose Colin, PCP - General 12/24/03 09/17/08 [address] [facility] [address] documented as of this encounter
--- OUTSIDE RECORDS SUMMARY | 2022-02-02 09:27 | XMS_ITS | Encounter Summary ---
:1965 Author Organization [facility] Address [address] [place] [address] Care Team Providers Name Role Phone Dixie Jose Jerrell DO Primary Care Provider [phone] Reason for Visit Reason Comments DVT(DEEP VEIN THROMBOSIS) left Encounter Details Date Type Department Care Team Description 04/30/2007 [facility] [address] [facility] DVT (Deep Venous [address] Thrombosis) (Primary Dx) [place], [place] [id number] Social History Tobacco Use Types Packs/Day Years Used Date Smoking Tobacco: Never Alcohol Use Standard Drinks/Week Comments Yes 0 (1 standard drink = 0.6 oz pure alcoho l) rarely Sex Assigned at Date Recorded Not on file documented as of this encounter Last Filed Vital Signs Vital Sign Reading Time Taken Comments Blood Pressure 120/76 04/30/2007 7:19 PM FARROWING MANAGER Pulse 80 04/30/2007 7:19 PM FARROWING MANAGER Temperature 36.7 ??C (98 ??F) 04/30/2007 7:19 PM FARROWING MANAGER Respiratory Rate 16 04/30/2007 7:19 PM FARROWING MANAGER Oxygen Saturation - - Inhaled Oxygen Concentration - - Weight - - Height - - Body Mass Index - - documented in this encounter Patient Instructions Patient Oksbhvrvwyvk52/20/2007 7:46 PM FARROWING MANAGER Lovenox (Heparin) 90mg every 12 hours until told to stop Warfarin 5mg a day 04/30, 05/01, 05/02 on 05/03 check with nurse for dose INR (lab test) 05/03 AM Goal for INR 2-3 OWING MANAGER documented in this encounter Progress Notes Chirag Braxton - 04/30/2007 7:35 PM CST This office note has been dictated. Chirag Braxton MD OWING MANAGER Chirag Braxton - 04/30/2007 12:00 AM FARROWING MANAGER Chief complaint: I have a vein clot [...] of Lovenox in the clinic. P cc: OWING MANAGER documented in this encounter Nursing Notes 04/30/2007 [...] DVT (Deep Venous Resul ts for this FARROWING MANAGER Thrombosis) procedure are i n the results section . documented in this encounter Results INR/PROTIME (04/30/2007 8:09 PM FARROWING MANAGER) athologist Signature Protime 13.0 12.0 - 14.5 Poacht App sec Coumadin No [facility] 0.9 [facility] Specimen Anatomical Collection Method Collection Time Receive d Time (Source) Location / / Volume Laterality 04/30/2007 8:09 PM 7 8:10 FARROWING MANAGER PM FARROWING MANAGER Chirag Braxton MD LAB_1 Performing Organization Address City/State/ZIP Code Phon e Number [facility] [phone] [facility] [address] [address] documented in this encounter Visit Diagnoses Diagnosis DVT (deep venous thrombosis) ([facility]) - Argelia bravo Acute venous embolism and thrombosis of unspecified deep vessels of lower extremity documented in this encounter Care Teams Microcomputer Support Specialist Relationship Specialty Start Date End Date Jose Colin DO PCP - General 12/24/03 09/17/08 [address] [place] [address] documented as of this encounter
--- OUTSIDE RECORDS SUMMARY | 2022-02-02 09:27 | XMS_ITS | Encounter Summary ---
:1965 Author [facility] Address [address] [address] Care Team Providers Name Role Phone Jose Colin Primary Care Provider [phone] Reason for Visit Reason Comments Careplan: Anticoagulation DVT Encounter Details Date Type Department Care Team Description 05/01/2007 Careplan [facility] Internal Thea Bella R N Careplan: Anticoagulation Medicine [facility] (DVT) [address] [place] [address] [address] [phone] [place], [place] [id number] Social History Tobacco Use Types Packs/Day Years Used Date Smoking Tobacco: Never Alcohol Use Standard Drinks/Week Comments Yes 0 (1 standard drink = 0.6 oz pure alcoho l) rarely Sex Assigned at Date Recorded Not on file documented as of this encounter Progress Notes Brigido Anand - 05/03/2007 8:23 AM MANAGER CARDIAC Addended by: BRIGIDO ROGERS on: 05/03/2007 8:23:29 AM Modules accepted: Orders GER CARDIAC Thea Bella - 05/01/2007 2:54 PM CST Anticoagulation initiation order for Megan Choi. Diagnoses: DVT. Therapeutic range: 2 - 3. Warfarin pill strength: 5 mg. Initiation date ( AKA date when started on warfarin ): 04/30/07. On enoxaparin: YES Length of treatment: 6 monthes or until directed by PCP. Comments: none Thea Bella RN 05/01/2007 2:53 PM GER CARDIAC documented in this encounter Plan of Treatment Not on filedocumented as of this encounter Visit Diagnoses Diagnosis DVT (deep venous thrombosis) ([facility]) - Argelia bravo Acute venous embolism and thrombosis of unspecified deep vessels of lower extremity documented in this encounter Care Teams Taper/Finisher Relationship Specialty Start Date End Date Jose Colin DO PCP - General 12/24/03 09/17/08 [address] [place] [address] documented as of this encounter
--- OUTSIDE RECORDS SUMMARY | 2022-02-02 09:27 | XMS_ITS | Encounter Summary ---
:1965 Author Organization [facility] Address [address] [place] [address] Care Team Providers Name Role Phone Jose Colin DO Primary Care Provider [phone] Encounter Details Date Type Department Care Team Description 05/20/2007 Orders Only [place] [facility] DVT (Deep Venous [address] Thrombosis) [place], [place] [id number] Social History Tobacco Use Types Packs/Day Years [...] DVT (Deep Venous Resul ts for this SKIN LAP BONDER Thrombosis) procedure are i n the results section . documented in this encounter Results (ABNORMAL) INR/PROTIME (05/20/2007 8:00 AM SKIN LAP BONDER) P athologist Signature Protime 22.9 (H) 12.0 - [facility] 14.5 sec Coumadin Yes [facility] 2.0 [facility] Specimen Anatomical Collection Method Collection Time Receive d Time (Source) Location / / Volume Laterality 05/20/2007 8:00 AM 7 8:01 SKIN LAP BONDER AM SKIN LAP BONDER Jose Colin DO LAB_1 Performing Organization Address City/State/ZIP Code Phon e Number [facility] [phone] [facility] [address] [address] documented in this encounter Visit Diagnoses Diagnosis DVT (deep venous thrombosis) ([facility]) Acute venous embolism and thrombosis of unspecified deep vessels of lower extremity documented in this encounter Care Teams Cull Grader Relationship Specialty Start Date End Date Jose Colin DO PCP - General 12/24/03 09/17/08 [address] [place] [address] documented as of this encounter
--- OUTSIDE RECORDS SUMMARY | 2022-02-02 09:27 | XMS_ITS | Encounter Summary ---
:1965 Author Organization [facility] Address [address], [place] [address] Care Team Providers Name Role Phone Dungjosé antonioelbaJose medina DO Primary Care Provider [phone] Encounter Details Date Type Department Care Team Description 04/30/2007 Orders Only [facility] ter Radiology [address] [place] [address] Social History Tobacco Use Types Packs/Day Years [...] ts for this LOW EXT - LT RETAIL SALESWORKER procedure are i n the results section. documented in this encounter Results US VASC OMID DOPP LOW EXT - LT (04/30/2007 5:58 PM RETAIL SALESWORKER) Anatomical Region Laterality Modality Other Specimen (Source) Anatomical Collection Method Collection Time Re ceived Time Location / / Volume Laterality 04/30/2007 5:58 PM RETAIL SALESWORKER Impressions 05/03/2007 8:40 AM RETAIL SALESWORKER IMPRESSION: Short segment occlusive thrombus within the left peroneal vein at the level of the mid calf. Results were discussed with Shyla mckeon, nurse practioner on 04/30/07 at 6:20 PM. ??Patient sent to [facility] for further evaluation and treatment. Narrative 05/03/2007 8:40 AM RETAIL SALESWORKER EVAL FOR DVT, LT CALF PAIN, # [id number], PAGE SHYLA (MAURICIO) @ PAGER# [id number] [...] on filedocumented in this encounter Care Teams Import Export Agent Relationship Specialty Start Date End Date Jose Colin, PCP - General 12/24/03 09/17/08 [address] [place] [address] documented as of this encounter
--- OUTSIDE RECORDS SUMMARY | 2022-02-02 09:27 | XMS_ITS | Encounter Summary ---
:1965 [facility] Address [address] [place] [address] Care Team Providers Name Role Phone Jose Colin DO Primary Care Provider [phone] Reason for Visit Reason Comments ERRONEOUS ENTRY Encounter Details Date Type Department Care Team Description 05/03/2007 [facility] Internal Med Wilda Burton RN ERRONEOUS ENTRY [address] [place] [address] [address] [phone] [place], [place] [address] Social History Tobacco Use Types [...] on filedocumented in this encounter Care Teams Multiple Wire Sawyer Relationship Specialty Start Date End Date Jose Colin DO PCP - General 12/24/03 09/17/[address] [place] [address] documented as of this encounter
--- OUTSIDE RECORDS SUMMARY | 2022-02-02 09:27 | XMS_ITS | Encounter Summary ---
:1965 Author Organization [facility] Address [address], [place] [address] Care Team Providers Name Role Phone Jose Colin DO Primary Care Provider [phone] Reason for Visit Reason Onset Date Comments FOLLOW-UP,[facility] 04/22/2007 Encounter Details Date Type Department Care Team Description 04/22/2007 Telephone [facility] C91 Rosalia Schafer, FOLLOW-UP,[address] [id number] Social History Tobacco Use Types Packs/Day Years Used Date Smoking Tobacco: Never Alcohol Use Standard Drinks/Week Comments Yes 0 (1 standard drink = 0.6 oz pure alcoho l) rarely Sex Assigned at Date Recorded Not on file documented as of this encounter Nursing Notes Rosalia Schafer - 04/22/2007 11:05 AM CST Pt had concerns about noisey kiowa tribe and difficult dealing with night float nurse She spoke to Soco hernandez this ITORY SALES REPRESENTATIVE documented in this encounter Plan of Treatment Not on filedocumented as of this encounter Visit Diagnoses Not on filedocumented in this encounter Care Teams Plastic And Reconstructive Surgeon Relationship Specialty Start Date End Date Jose Colin, PCP - General 12/24/03 09/17/[address] [place] [address] documented as of this encounter
--- OUTSIDE RECORDS SUMMARY | 2022-02-02 09:27 | XMS_ITS | Encounter Summary ---
:1965 Author [facility] Address [address], [place] [address] Care Team Providers Name Role Phone Jose Colin DO Primary Care Provider [phone] Encounter Details Date Type Department Care Team Description 05/03/2007 Anticoagulation [facility] Internal Wilda Burch, DVT ( Deep Venous Thrombosis) (Primary Dx); Medicine RN GERD (Gastroesophageal Reflux Disease) [address] [place] [address] [facility] [phone] [address] [place], [place] [phone] Social History Tobacco Use Types Packs/Day Years Used Date Smoking Tobacco: Never Alcohol Use Standard Drinks/Week Comments Yes 0 (1 standard drink = 0.6 oz pure alcoho l) rarely Sex Assigned at Date Recorded Not on file documented as of this encounter Progress Notes Jose Colin - 06/20/2007 9:01 AM CST Agree with carenikki. Jose Colin DO OF MUSIC Wilda Anand - 05/03/2007 2:40 PM CST See Anticoagulation Flowsheet for details. Wilda Burch RN OF MUSIC documented in this encounter Plan of Treatment Not on filedocumented as of this encounter Visit Diagnoses Diagnosis DVT (deep venous thrombosis) ([facility]) - [facility] Acute venous embolism and thrombosis of unspecified deep vessels of lower extremity GERD (gastroesophageal reflux disease) Esophageal reflux documented in this encounter Care Teams Survey Data Technician Relationship Specialty Start Date End Date Jose Colin DO PCP - General 12/24/03 09/17/08 [address] [place] [address] documented as of this encounter
--- OUTSIDE RECORDS SUMMARY | 2022-02-02 09:27 | XMS_ITS | Encounter Summary ---
:1965 Author Organization [facility] Address [address] [place] [address] Care Team Providers Name Role Phone MoJose medina Jerrell BOOGIE Primary Care Provider [phone] Reason for Visit Reason Onset Date Comments DVT(DEEP VEIN THROMBOSIS) 04/30/2007 Encounter Details Date Type Department Care Team Description 04/30/2007 Telephone Careline Celena Wells, DVT(DEEP VEIN [address] RN THROMBOSIS) [place], [place] [address] [phone] [place] [address] Social History Tobacco Use Types Packs/Day Years Used Date Smoking Tobacco: Never Alcohol Use Standard Drinks/Week Comments Yes 0 (1 standard drink = 0.6 oz pure alcoho l) rarely Sex Assigned at Date Recorded Not on file documented as of this encounter Nursing Notes Celena Wells - 04/30/2007 7:00 PM CST Shyla Perdomo OFFICE TECHNICIAN called [facility] to let [facility] know pt has a DVT as [facility]. She cannot remember pt's name and gave [facility] nurse number to call at ultrasound to get pt name as pt is still there waiting for further direction. Pt needs lovenox started but Aleyda Perdomo gopingout of phone service shortly. She wondered if pt can be seen at [facility] to get shots started. Called Lead Rn Celena Alejandro at [facility] and she stated pt can be seen at any [facility] and if Rn there, pt can get shot from Rn if [facility] Dr orders it and then will need to f/u in regular clinic in am to get pt teaching on thelovenox shots and then further f/u. PT can be seen at [facility] but will need to see Dr as [...] paz. Stated pt could be seen at [facility] or [facility] or [facility] and be seen by Dr to get [...] she would like to be seen at [facility] as it is only 10 min from her. Called Rissa at [facility] to give number for them toreach radiologist for confirmation if needed and to let them know pt would be coming in for lovenox shot. She stated nurses are busy. Did not get to give radiology number to nurses. She hung up. Cb from [facility] and they stated to speak with Dr Choi and did not speak with Dr Choi as Dr did not come to the phone. They thought Dr concrete wall grinder operator for clinic should have been consulted about matter. They maysend her to Er was stated. Relayed information that pt was enroute but she did know how to give herself shots but she would need Dr orders to get medication started for DVT per protocol. NT GRINDING MILL OPERATOR documented in this encounter Plan of Treatment Not on filedocumented as of this encounter Visit Diagnoses Not on filedocumented in this encounter Care Teams Bridge Tender Relationship Specialty Start Date End Date Jose Colin DO PCP - General 12/24/03 09/17/[address] [place] [address] documented as of this encounter
--- OUTSIDE RECORDS SUMMARY | 2022-02-02 09:27 | XMS_ITS | Encounter Summary ---
:1965 Author [facility] Address [address] [place] [address] Care Team Providers Name Role Phone Jose Colin DO Primary Care Provider [phone] Encounter Details Date Type Department Care Team Description 05/07/2007 Orders Only [facility] DVT (Deep Venous [address] Thrombosis) [place], [place] [id number] Social History Tobacco Use Types Packs/Day Years [...] DVT (Deep Venous Resul ts for this REAL ESTATE DEVELOPER Thrombosis) procedure are i n the results section . documented in this encounter Results (ABNORMAL) INR/PROTIME (05/07/2007 8:11 AM REAL ESTATE DEVELOPER) P athologist Signature Protime 23.8 (H) 12.0 - [facility] 14.5 sec Coumadin Yes [facility]1 [facility] Specimen Anatomical Collection Method Collection Time Receive d Time (Source) Location / / Volume Laterality 05/07/2007 8:11 AM 7 8:12 REAL ESTATE DEVELOPER AM REAL ESTATE DEVELOPER Jose Colin DO LAB_1 Performing Organization Address City/State/ZIP Code Phon e Number [facility] [phone] [facility] [address] [address] documented in this encounter Visit Diagnoses Diagnosis DVT (deep venous thrombosis) ([facility]) Acute venous embolism and thrombosis of unspecified deep vessels of lower extremity documented in this encounter Care Teams Rib Sawyer Relationship Specialty Start Date End Date Jose Colin DO PCP - General 12/24/03 09/17/08 [address] [place] [address] documented as of this encounter
--- OUTSIDE RECORDS SUMMARY | 2022-02-02 09:27 | XMS_ITS | Encounter Summary ---
:1965 [facility] Address [address] [place] [address] Care Team Providers Name Role Phone Jose Colin DO Primary Care Provider [phone] Encounter Details Date Type Department Care Team Description 05/17/2007 Orders Only [facility] DVT (Deep Venous [address] Thrombosis) [place], [place] [id number] Social History Tobacco Use Types Packs/Day Years [...] DVT (Deep Venous Resul ts for this LIBRARY ASSISTANT Thrombosis) procedure are i n the results section . documented in this encounter Results (ABNORMAL) INR/PROTIME (05/17/2007 9:00 AM LIBRARY ASSISTANT) P athologist Signature Protime 39.4 (H) 12.0 - [facility] 14.5 sec Coumadin Yes [facility] 3.9 [facility] Specimen Anatomical Collection Method Collection Time Receive d Time (Source) Location / / Volume Laterality 05/17/2007 9:00 AM 7 9:01 LIBRARY ASSISTANT AM LIBRARY ASSISTANT Jose Colin DO LAB_1 Performing Organization Address City/State/ZIP Code Phon e Number [facility] [phone] [facility] [address] [address] documented in this encounter Visit Diagnoses Diagnosis DVT (deep venous thrombosis) ([facility]) Acute venous embolism and thrombosis of unspecified deep vessels of lower extremity documented in this encounter Care Teams Wrapper Leaf Inspector Relationship Specialty Start Date End Date Jose Colin DO PCP - General 12/24/03 09/17/08 [address] [place] [address] documented as of this encounter
--- OUTSIDE RECORDS SUMMARY | 2022-02-02 09:27 | XMS_ITS | Encounter Summary ---
:1965 Author Organization [facility] Address [address], [place] [address] Care Team Providers Name Role Phone Jose Colin DO Primary Care Provider [phone] Encounter Details Date Type Department Care Team Description 05/01/2007 Anticoagulation [facility] Internal Thea Bella, DVT (De ep Venous Medicine RN Thrombosis) (Primary [address] [facility] Dx) [place] [address] CLINIC [phone] [address] [place] [address] Social History Tobacco Use Types Packs/Day Years Used Date Smoking Tobacco: Never Alcohol Use Standard Drinks/Week Comments Yes 0 (1 standard drink = 0.6 oz pure alcoho l) rarely Sex Assigned at Date Recorded Not on file documented as of this encounter Plan of Treatment Not on filedocumented as of this encounter Visit Diagnoses Diagnosis DVT (deep venous thrombosis) ([facility]) - [facility] Acute venous embolism and thrombosis of unspecified deep vessels of lower extremity documented in this encounter Care Teams Offensive Coordinator Relationship Specialty Start Date End Date Jose Colin DO PCP - General 12/24/03 09/17/08 [address] [place] [address] documented as of this encounter
--- OUTSIDE RECORDS SUMMARY | 2022-02-02 09:27 | XMS_ITS | Encounter Summary ---
:1965 Author Organization [facility] Address [address], [place] [address] Care Team Providers Name Role Phone Jose Colin DO Primary Care Provider [phone] Encounter Details Date Type Department Care Team Description 05/07/2007 [facility] Internal Med Wilda Burton RN [address] [place] [address] [address] [phone] [place], [place] [address] Social History Tobacco Use Types Packs/Day Years Used Date Smoking Tobacco: Never Alcohol Use Standard Drinks/Week Comments Yes 0 (1 standard drink = 0.6 oz pure alcoho l) rarely Sex Assigned at Date Recorded Not on file documented as of this encounter Progress Notes Wilda Anand - 05/07/2007 2:28 PM CST See Anticoagulation Flowsheet for details. Wilda Burch RN TESTER documented in this encounter Plan of Treatment Not on filedocumented as of this encounter Visit Diagnoses Not on filedocumented in this encounter Care Teams Asset Protection Lead Relationship Specialty Start Date End Date Jose Colin, PCP - General 12/24/03 09/17/08 [address] [facility] [address] documented as of this encounter
--- OUTSIDE RECORDS SUMMARY | 2022-02-02 09:27 | XMS_ITS | Encounter Summary ---
:1965 Author Organization [facility] Address [address] [address] Care Team Providers Name Role Phone DixieJose Jerrell DO Primary Care Provider [phone] Reason for Referral Specialty Diagnoses / Procedures Referred By Contact Refer red To Contact Shyla Perdomo, AP RN, ROBOT PROGRAMMER [address] [place] [address] Referral ID Status Reason Start Date Expiration Date Visits Requ ested Visits Authorized BILITATION TEAM LEAD Reason for Visit Reason Comments LEG PAIN Left Calf Encounter Details Date Type Department Care Team Description 04/30/2007 Office Visit [facility] Internal Shyla Perdomo, Calf P ain (Primary Dx) Medicine OCCUPATIONAL HEALTH AND SAFETY MANAGER, ROBOT PROGRAMMER [address] [facility] [address] [place] [address] [place], [place] [phone] [address] Social History Tobacco Use Types Packs/Day Years Used Date Smoking Tobacco: Never Alcohol Use Standard Drinks/Week Comments Yes 0 (1 standard drink = 0.6 oz pure alcoho l) rarely Sex Assigned at Date Recorded Not on file documented as of this encounter Last Filed Vital Signs Vital Sign Reading Time Taken Comments Blood Pressure 118/60 04/30/2007 3:43 PM REHABILITATION TEAM LEAD Pulse 76 04/30/2007 3:43 PM REHABILITATION TEAM LEAD Temperature 36.2 ??C (97.2 ??F) 04/30/2007 3:43 PM REHABILITATION TEAM LEAD Respiratory Rate 24 04/30/2007 3:43 PM REHABILITATION TEAM LEAD Oxygen Saturation - - Inhaled Oxygen Concentration [...] 04/30/2007 This chart has been electronically signed. BILITATION TEAM LEAD documented in this encounter Plan of Treatment Not on filedocumented as of this encounter Visit Diagnoses Diagnosis Calf pain - Primary Pain in limb documented in this encounter Care Teams Brazing Machine Feeder Relationship Specialty Start Date End Date Jose Colin DO PCP - General 12/24/03 09/17/08 [address] [place] [address] documented as of this encounter
--- OUTSIDE RECORDS SUMMARY | 2022-02-02 09:27 | XMS_ITS | Encounter Summary ---
:1965 Author [facility] Address [address], [place] [address] Care Team Providers Name Role Phone Jose Colin DO Primary Care Provider [phone] Reason for Visit Reason Onset Date Comments Same Day/Next Day Appt. 04/30/2007 Same Day Appt Encounter Details Date Type Department Care Team Description 04/30/2007 Telephone [facility] Same Day/Ne Appt. Medicine Jose Allan DO (Same Day Appt [address] [facility]. 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 She would like to see someone today. Please call her at phone [phone] Cristhian Romo ING MACHINE OPERATOR documented in this encounter Plan of Treatment Not on filedocumented as of this encounter Visit Diagnoses Not on filedocumented in this encounter Care Teams Bread Jockey Relationship Specialty Start Date End Date Jose Colin DO PCP - General 12/24/03 09/17/08 [address] [place] [address] documented as of this encounter
--- OUTSIDE RECORDS SUMMARY | 2022-02-02 09:27 | XMS_ITS | Encounter Summary ---
:1965 Author Organization [facility] Address [address], [place] [address] Care Team Providers Name Role Phone Jose Colin DO Primary Care Provider [phone] Encounter Details Date Type Department Care Team Description 05/17/2007 [facility] Internal Med Wilda Burton RN [address] [place] [address] [address] [phone] [place], [place] [address] Social History Tobacco Use Types Packs/Day Years Used Date Smoking Tobacco: Never Alcohol Use Standard Drinks/Week Comments Yes 0 (1 standard drink = 0.6 oz pure alcoho l) rarely Sex Assigned at Date Recorded Not on file documented as of this encounter Progress Notes Wilda Anand - 05/17/2007 3:06 PM CST See Anticoagulation Flowsheet for details. Wilda Burch RN EXPERIENCE DESIGNER documented in this encounter Plan of Treatment Not on filedocumented as of this encounter Visit Diagnoses Not on filedocumented in this encounter Care Teams Snack Bar Attendant Relationship Specialty Start Date End Date Jose Colin, PCP - General 12/24/03 09/17/08 [address] [facility] [address] documented as of this encounter
--- OUTSIDE RECORDS SUMMARY | 2022-02-02 09:27 | XMS_ITS | Encounter Summary ---
:1965 Author Organization [facility] Address [address] [place] [address] Care Team Providers Name Role Phone Jose Colin DO Primary Care Provider Encounter Details Date Type Department Care Team Description 05/06/2007 Orders Only [facility] DVT (Deep Venous [address] Thrombosis) [place], [place] [id number] Social History Tobacco Use Types Packs/Day Years [...] DVT (Deep Venous Resul ts for this TEA BAG MACHINE TENDER Thrombosis) procedure are i n the results section . documented in this encounter Results (ABNORMAL) INR/PROTIME (05/06/2007 8:01 AM TEA BAG MACHINE TENDER) P athologist Signature Protime 24.2 (H) 12.0 - [facility] 14.5 sec Coumadin Yes [facility] Specimen Anatomical Collection Method Collection Time Receive d Time (Source) Location / / Volume Laterality 05/06/2007 8:01 AM 7 8:02 TEA BAG MACHINE TENDER AM TEA BAG MACHINE TENDER Jose Colin DO LAB_1 Performing Organization Address City/State/ZIP Code Phon e Number [facility] [phone] [facility] [address] [address] documented in this encounter Visit Diagnoses Diagnosis DVT (deep venous thrombosis) ([facility]) Acute venous embolism and thrombosis of unspecified deep vessels of lower extremity documented in this encounter Care Teams Appliance Servicer Relationship Specialty Start Date End Date Jose Colin DO PCP - General 12/24/03 09/17/08 [address] [place] [address] documented as of this encounter
--- OUTSIDE RECORDS SUMMARY | 2022-02-02 09:27 | XMS_ITS | Encounter Summary ---
:1965 Author [facility] Address [address] [place] [address] Care Team Providers Name Role Phone Jose Colin DO Primary Care Provider [phone] Encounter Details Date Type Department Care Team Description 05/10/2007 Orders Only [facility] DVT (Deep Venous [address] Thrombosis) [place], [place] [id number] Social History Tobacco Use Types Packs/Day Years [...] DVT (Deep Venous Resul ts for this CSW Thrombosis) procedure are i n the results section . documented in this encounter Results (ABNORMAL) INR/PROTIME (05/10/2007 8:05 AM CSW) P athologist Signature Protime 24.7 (H) 12.0 - [facility] 14.5 sec Coumadin Yes [facility] INR 2.2 [facility] Specimen Anatomical Collection Method Collection Time Receive d Time (Source) Location / / Volume Laterality 05/10/2007 8:05 AM 7 8:07 CSW AM CSW Jose Colin DO LAB_1 Performing Organization Address City/State/ZIP Code Phon e Number [facility] [phone] [facility] [address] [address] documented in this encounter Visit Diagnoses Diagnosis DVT (deep venous thrombosis) ([facility]) Acute venous embolism and thrombosis of unspecified deep vessels of lower extremity documented in this encounter Care Teams Manager Power Relationship Specialty Start Date End Date Jose Colin DO PCP - General 12/24/03 09/17/08 [address] [place] [address] documented as of this encounter
--- OUTSIDE RECORDS SUMMARY | 2022-02-02 09:28 | XMS_ITS | Encounter Summary ---
:1965 Author Organization [facility] Address [address] [place] [address] Care Team Providers Name Role Phone MoJose medina Jerrell BOOGIE Primary Care Provider [phone] Encounter Details Date Type Department Care Team Description 04/15/2007 - Hospital Encounter RH C91 Zachary Kirkland MD 04/19/[address] [place] [address] [address] [place] [address] [place], [place] [phone] [id number] Social History Tobacco Use Types Packs/Day Years Used Date Smoking Tobacco: Never Alcohol Use Standard Drinks/Week Comments Yes 0 (1 standard drink = 0.6 oz pure alcoho l) rarely Sex Assigned at Date Recorded Not on file documented as of this encounter Last Filed Vital Signs Vital Sign Reading Time Taken Comments Blood Pressure 105/50 04/19/2007 7:15 AM GEOLOGY TECHNICIAN Pulse 92 04/19/2007 7:15 AM GEOLOGY TECHNICIAN Temperature 37.2 ??C (98.9 ??F) 04/19/2007 7:15 AM GEOLOGY TECHNICIAN Respiratory Rate 16 04/19/2007 7:15 AM GEOLOGY TECHNICIAN Oxygen Saturation 96% 04/19/2007 7:15 AM GEOLOGY TECHNICIAN Inhaled Oxygen Concentration - - Weight 89.4 kg (197 lb) 04/15/2007 6:07 AM GEOLOGY TECHNICIAN Height 160 cm (5' 3) 04/15/2007 6:07 AM GEOLOGY TECHNICIAN Body Mass Index 34.9 04/15/2007 6:07 AM GEOLOGY TECHNICIAN documented in this encounter Discharge Summaries Zachary Kirkland - 05/15/2007 9:55 AM GEOLOGY TECHNICIAN ADMIT DATE: 04/15/2007 DISCHARGE DATE: 04/19/2007 FINAL [...] aspirin for anticoagulation prophylaxis. Zachary Kirkland MD [facility] Dictated: 05/15/2007 09:55:58 Transcribed: 05/16/2007 10:31:51 Doc #: [id number] cc:Zachary Kirkland MD, Referring Physician Jose Colin DO, Primary Physician 1 Page 1 Patient Name: MEGAN WONG DISCHARGE SUMMARY CONFIDENTIAL MEDICAL RECORD [address] [address] Page 1 Patient: MEGAN WONG Location: HPN: [id number] Admit Date: 04/15/2007 Date of : 1965 Discharge Date: 04/19/2007 Age: 42Y DISCHARGE SUMMARY OGY TECHNICIAN documented in this encounter Discharge Instructions Discharge InstructionsAmanda Lawrence - 04/19/2007 6:43 PM GEOLOGY TECHNICIAN ` Discharge Instructions for: Megan Wong Thank you for choosing [facility] as your hospital. Please read the following instructions carefully. The staff will go over this information with you and answer your questions. General Information Allergies: Erythromycin Immunization: Most Recent Immunizations Name Date(s) Administered * Td, Preservative Free 06/16/2005 Phone number: [phone] (home) [phone] (work) Discharging physician: RICHARD Discharge date: 04/19/07 [...] the anticoagulation order. Contact information (name/clinic/phone number): [phone] When to Resume Normal Activities: Order Comments: [...] been sent to the following clinic:{[facility] FAX DESTINATION:[id number]} Home Care Instructions Patient Teaching Handouts INCISION [...] and/or chills Community Resources NONE Contact Information [address] [id number] For questions about your discharge instructions call the nursing unit : [phone] Emergency & Urgently Needed Care: For emergencies call 911 and/or get medical help right away. If you are a [employer] member and have medical needs after clinic hours you may call the CareLine at [phone] or . Smoking and second-hand smoke exposure: Smoking damages blood vessels, reduces the oxygen in your blood and makes your heart beat too fast.If you smoke you should quit. Everyone should avoid second- hand smoke. If you would like further assistance after your discharge, please contact [phone] or visit [email or web address] can offer further information and assistance. You will receive a patient satisfaction survey either at the time of discharge or by mail in about two weeks. We want to hear about your stay at [facility]. Please help us improve by telling us about your experience . When leaving your room at discharge, please stop at the nursing unit desk to check out. I understand my discharge instructions: Megan Wong (or Draw Bench Operator Helper) OGY TECHNICIAN documented in this encounter Medications at Time [...] Ant Thomas - 04/19/2007 6:27 PM CST [facility] Discharge Note - Nursing Patient Name: [...] by: Robert Pelaez RN ---End of Report--- OGY TECHNICIAN Maria E Galindo - 04/19/2007 2:25 PM CST I have evaluated this patient and reviewed all related documentation. Maria E Galindo RN 04/19/2007 2:[address] Gilliland - 04/19/2007 1:56 AM CST [facility] Progress Note (Nursing) Patient Name: Megan Wong [...] movement Lane Ballesteros, ---End of Report --- OGY TECHNICIAN Patti Lynch - 04/18/2007 10:57 PM CST [facility] Progress Note (Nursing) Patient Name: Megan Wong [...] Patti Bahena RN ---End of Report --- OGY TECHNICIAN Jessica Romero - 04/18/2007 4:13 PM CST [facility] PT Progress Note Patient Name: Megan Wong [...] Rosalia Sotelo - 04/18/2007 2:03 PM CST [facility] Progress Note (Nursing) Patient Name: Megan Wong [...] Rosalia Schafer LPN ---End of Report --- OGY TECHNICIAN Sloane Harvey - 04/18/2007 2:03 PM CST PT HAS BEEN ASSESSED,AGREE WITH NOTE AND PLAN OF CARE. OGY TECHNICIAN Jessica Romero - 04/18/2007 12:57 PM CST [facility] PT Progress Note Patient Name: Megan Wong [...] stairs upon d/c initially. Jessica Romero PT OGY TECHNICIAN Rosina Morgan - 04/18/2007 11:44 AM CST [facility] [place] Occupational Therapy Progress Note Patient Name: Megan [...] minutes MIGUEL Holcomb/Marcos (pager) OT Dept #: [phone] - OT Weekend Pager #: [phone] - [facility] Main #: [phone] OGY TECHNICIAN Irene Mascorro - 04/18/2007 9:15 AM CST [facility] Progress Note (MD) Patient Name: Megan Wong Date of : 1965 Date of service: 04/18/07 Diagnosis: Sacroiliac fusion, fever, abdominal pain, prior lumbar fusion Admit Date/Time: 04/15/2007 5:32 AM Attending Prov: Zachary Kirkland Patient Service: Orthopedics Subjective: Patient feeling much better. ROUNDING AND BACKING MACHINE OPERATOR stopped yesterday. Ambulating. Still has LLQ pain [...] 9:22 AM --- End of Report --- OGY TECHNICIAN Hannah Borrego - 04/18/2007 2:36 AM CST [facility] Progress Note (Nursing) Patient Name: Megan Wong [...] Taniya Hanley - 04/17/2007 9:31 PM CST [facility] Progress Note (Nursing) Patient Name: Megan Wong [...] fax to [facility]/ care coordinated with [facility] on duty. Refused flu vaccine and MOM ordered. Afebrile the whole shift. With pending blood cultures x 2 sites today and cxray results..IS at max volume when able. Plan: Monitor for comfort Continue cares Taniya Brewster RN ---End of Report --- OGY TECHNICIAN Zachary Kirkland - 04/17/2007 6:43 PM CST Post op day two. Alert, CMS intact, Reasonable comfort Progressing in PT No complication Zachary Kirkland MD OGY TECHNICIAN Sena Zamarripa - 04/17/2007 3:27 PM CST [...] bowel sounds present. No tenderness and distension. INSOLE TACK PULLER HAND Alert and oriented. Extremeties: No pitting edema, [...] 1 Tab Oral TID ??? HYDROmorphone (DILAUDID) ROUNDING AND BACKING MACHINE OPERATOR 10 mg in NS 50 mL IV [...] fusion 4) Post-op pain control - dilaudid ROUNDING AND BACKING MACHINE OPERATOR To continue IVF. Sena Zamarripa MD 04/17/2007, 3:32 PM [phone] Date of Service: 04/17/2007 Report completed by: Sena Zamarripa MD ([facility]) at 3:27 PM on 04/17/2007 OGY TECHNICIAN Jessica Romero - 04/17/2007 2:55 PM CST [facility] PT Progress Note Patient Name: Megan Wong [...] bid in dept tomorrow. Jessica Romero, PT OGY TECHNICIAN Iván Shin - 04/17/2007 11:56 AM CST [facility] Progress Note (Nursing) Patient Name: Megan Wong [...] Iván Shin RN ---End of Report --- OGY TECHNICIAN Kia Infante - 04/17/2007 11:39 AM CST [facility] Care Management Substance Abuse Counselor Initial Assessment Name: Megan Wong Admission Date/Time: 04/15/2007 5:32 AM Attending MD: Zachary Kirkland DATA Megan Wong was referred to this Substance Abuse Counselor for discharge planning. Chart reviewed, discussed with interdisciplinary team, as well as with patient and family. Megan Wong was admitted to for a L SI fusion Insurance: Payor: [employer] [id number] Plan: [employer]URED Product Type: *No [...] with her and two dtrs in a [facility] in [place]. There are 3 steps with a railing [...] completed by Kia Infante RN, Pager Number [phone] Christy Pepper - 04/17/2007 1:31 AM CST [facility] Progress Note (Nursing) Patient Name: Megan Wong [...] Sandra Cabrera - 04/16/2007 9:35 PM CST [facility] Progress Note (Nursing) Patient Name: Megan Wong [...] 2500 cc of urine output via emery,dialudid ROUNDING AND BACKING MACHINE OPERATOR discontinued and pt started on oral meds, notified regarding pt status and request for oycontin,pt bathed and repostitioned. Plan: Continue to monitor, turn Q2 hours, reassess need for emery in am, encourage IS. Sandra Blackmon RN ---End of Report --- OGY TECHNICIAN Irene Mascorro - 04/16/2007 6:00 PM CST [facility] Progress Note (MD) Patient Name: Megan Wong [...] pyelonephritis. Incision pain okay, but on dilaudid ROUNDING AND BACKING MACHINE OPERATOR. Occasionally desats due to sleepiness, but sats [...] 1 Tab Oral TID ??? HYDROmorphone (DILAUDID) ROUNDING AND BACKING MACHINE OPERATOR 10 mg in NS 50 mL IV [...] NS 7) Post-op pain control - dilaudid ROUNDING AND BACKING MACHINE OPERATOR Total time for chart review, exam and interview, following up on labs and ultimately reviewing AXR 35 minutes, coordination of care > 50%. Report Completed by: Irene Mascorro MD --- End of Report --- OGY TECHNICIAN Leanna French - 04/16/2007 2:14 PM CST [facility] Progress Note (Nursing) Patient Name: Megan Wong Date of : 1965 Identify/Problem(s): GENERAL STATU. Desired Outcome(s): Will be stabilized. Evaluation: Pt oriented but quite sleepy. On waxer floor dilaudid with adequate pain control. C/o nausea, received prn zofran with relief. Incision to lower back is intact with some shadowing. Cms to LE intact. Vss exceptfor temp of 99.5 and 100.9 at 0800 and noon respectively. Lungs clear, encouraged IS usage. MD updated. Plan: Cont to monitor, assess and medicate as indicated. Leanna Perales Mba, RN ---End of Report --- OGY TECHNICIAN Rosina Morgan - 04/16/2007 1:02 PM CST [facility] Occupational Therapy The patient is scheduled to be seen by OT. MIGUEL Holcomb/Marcos (pager) OT Dept #: [phone] - OT Weekend Pager #: [phone] - [facility] Main #: [phone] Gavin Ortiz - 04/16/2007 10:25 AM CST [facility] Clinical Pharmacy Medication Reconciliation Note Patient Name: Megan Wong Date of : 1965 Medications Reviewed and Reconciled: Any medication adjustments made from patient's medication history regimen are appropriate for current hospitalization and medical condition. PHARMACIST NAME: Gavin Sanchez Phone/Pager #: [phone] -- End of Report -- Huseyin Dey - 04/16/2007 7:59 AM CST [facility] Progress Note (Nursing) Patient Name: Megan Wong Date of : 1965 Identify/Problem(s): pain Desired Outcome(s): Will have maximum Evaluation: Pt neuro intact, lower back incision d/i with small shadow, takes I.S to 1250, got 50mg of atarax for muscle pain with relief, repositioned often on this shift. BP improved. Used 4.73 mg of dilaudid ROUNDING AND BACKING MACHINE OPERATOR-- new syringe placed at 0800. Presently lying down in bed without problem. Plan: Will continue to monitor Huseyin Miguel RN ---End of Report --- Zachary Porter - 04/16/2007 7:53 AM CST Post op day one Alert, CMS intact Reasonable comfort. No complication evident P: per protocol PT Zachary Kirkland MD OGY TECHNICIAN Sandra Blackmon - 04/15/2007 11:57 PM CST [facility] Progress Note (Nursing) Patient Name: Megan Wong Date of : 1965 Identify/Problem(s): Comfort Desired Outcome(s): Will remain comfortable Evaluation: Vitals stable with exception of low BP, BP at 1600 103/61, recheck at 1999 102/57, LS clear, BS hypo, ate 50% of clear liquid dinner, denies N/V, SOB, CP, CMS + to BLE , moderate amount of shadowing noted, pain controlled with dilaudid ROUNDING AND BACKING MACHINE OPERATOR (14.9 mg of dilauid used) and atarax, emery patent with good amount of output, plexipulses on BLE. Plan: Continue to monitor. Sandra Blackmon RN ---End of Report --- Iván Pinto - 04/15/2007 1:30 PM CST [facility] Nursing Post-Op Note Patient Name: Megan Wong Date of : 1965 Admission Date/Time: 04/15/2007 5:32 AM Returned to: 9E on (date) 04/15/07 at (time) 1230 from P.A.R. Transported by: Litter/cart Medical devices present on return from O.R.: IV General condition on return from O.R.: fair Report Completed by: Iván Shin RN ---End of Report--- OGY TECHNICIAN Zachary Kirkland - 04/15/2007 8:03 AM CST Post op note Left SI fusion for sacralgia No complications EBL 100 cc Plan per orders, ROUNDING AND BACKING MACHINE OPERATOR, PT home in 2-3 days Zachary Kirkland MD OGY TECHNICIAN documented in this encounter Procedure Notes Zachary [...] was prepped and draped prone on a 4-croze cutter. A longitudinal incision was made under x-ray [...] touch weight-bearing for 6 weeks, Lovenox and ROUNDING AND BACKING MACHINE OPERATOR Dilaudid, home in 2-3 days. Zachary Kirkland MD mjb Dictated: 04/15/2007 11:00:01 Transcribed: 04/15/2007 11:53:11 Doc #: [id number] cc:Zachary Kirkland MD, Referring Physician Jose Colin, , Primary Physician DO NOT SIGN UNLESS PRESENT FOR PROCEDURE I attest that I was present for and participated in the ma portions of this procedure(s) in compliance with the Health Care Financing Administration Teaching Physician Guidelines. Signed Date Regions Staff Physician 1 Page 2 Patient Name: MEGAN WONG OPERATIVE REPORT CONFIDENTIAL MEDICAL RECORD [address] [address] Page 1 Patient: MEGAN WONG Location: [place] HPN: [id number] Admit Date: 04/15/2007 Date of : 1965 Discharge Date: Age: 42Y OPERATIVE REPORT OGY TECHNICIAN documented in this encounter Plan of Treatment Not on filedocumented as of this encounter Procedures Procedure Name Priority Date/Time Associated Comments Diagnosis COMPLETE BLOOD Routine 04/18/2007 6:25 AM Results for this COUNT-NO DIFF GEOLOGY TECHNICIAN procedure are in the results section. BLOOD CULTURE SITE 2 Routine 04/17/2007 6:15 PM R esults for this GEOLOGY TECHNICIAN procedure are i n the results section. BLOOD CULTURE Routine 04/17/2007 5:50 PM Results for this GEOLOGY TECHNICIAN procedure are i n the results section. CHEST PA/LATERAL Routine 04/17/2007 3:51 PM Resul ts for this GEOLOGY TECHNICIAN procedure are i n the results section. BASIC METABOLIC PANEL Routine 04/17/2007 7:10 AM Results for this GEOLOGY TECHNICIAN procedure are i n the results section. COMPLETE BLOOD Routine 04/17/2007 7:10 AM Results for this COUNT-NO DIFF GEOLOGY TECHNICIAN procedure are in the results section. URINE CULTURE Routine 04/16/2007 8:45 PM Results for this GEOLOGY TECHNICIAN procedure are i n the results section. UA CONDITIONAL UC Routine 04/16/2007 8:45 PM Resu lts for this GEOLOGY TECHNICIAN procedure are i n the results section. BLOOD CULTURE SITE 2 Routine 04/16/2007 8:00 PM R esults for this GEOLOGY TECHNICIAN procedure are i n the results section. GOLD HOLD TUBE (OR Routine 04/16/2007 8:00 PM Res ults for this RED/LOPEZ) GEOLOGY TECHNICIAN procedure are i n the results section. BLOOD CULTURE Routine 04/16/2007 8:00 PM Results for this GEOLOGY TECHNICIAN procedure are i n the results section. BASIC METABOLIC PANEL Routine 04/16/2007 8:00 PM Results for this GEOLOGY TECHNICIAN procedure are i n the results section. BILIRUBIN, TOTAL & Routine 04/16/2007 8:00 PM Res ults for this DIRECT GEOLOGY TECHNICIAN procedure are i n the results section. COMPLETE BLOOD Routine 04/16/2007 8:00 PM Results for this COUNT-NO DIFF GEOLOGY TECHNICIAN procedure are in the results section. ALT (SGPT) Routine 04/16/2007 8:00 PM Results f or this GEOLOGY TECHNICIAN procedure are i n the results section. AST Routine 04/16/2007 8:00 PM Results f or this GEOLOGY TECHNICIAN procedure are i n the results section. ALKALINE PHOSPHATASE, Routine 04/16/2007 8:00 PM Results for this TOTAL GEOLOGY TECHNICIAN procedure are i n the results section. CT PELVIS WITHOUT IV Routine 04/16/2007 10:40 Res ults for this CONTRAST AM GEOLOGY TECHNICIAN procedure are i n the results section. AP PELVIS Routine 04/15/2007 10:50 Results for this AM GEOLOGY TECHNICIAN procedure are i n the results section. FUSION SACRAL ILIAC AM Admit 04/15/2007 7:50 AM SI PAIN GEOLOGY TECHNICIAN Case Notes PROC: LEFT SI FUSION ABO RH & ANTIBODY SCREEN STAT 04/15/2007 6:50 AM GEOLOGY TECHNICIAN Results for this procedure (TYPE & SCREEN) are in the r esults section. documented in this encounter Results (ABNORMAL) HEMOGRAM/PLTS (04/18/2007 6:25 AM GEOLOGY TECHNICIAN) P athologist Signature WBC 10.3 4.0 - [...] Volume Laterality 04/18/2007 6:25 AM 7 6:36 GEOLOGY TECHNICIAN AM GEOLOGY TECHNICIAN Sena Zamarripa MD LAB_1 Performing Organization Address City/State/ZIP Code Phon e Number [address] [address] [place], [place] [phone] BLOOD CULTURE SITE 2 (04/17/2007 6:15 PM GEOLOGY TECHNICIAN) Component Value Ref Test Analysis Performed At Patholo gist Range Method Time Signature Specimen Blood REGIONS Description VENIPUNCTURE Special Site 2 REGIONS Requests Venipuncture Culture No Growth After REGIONS 6 Days Report Status Final 04/23/2007 REGIONS Specimen Anatomical Location Collection Method Collection Time Received Time (Source) / Laterality / Volume Blood specimen VENIPUNCTURE / 04/17/2007 6:15 04/17/20 07 8:14 (specimen) Unknown PM GEOLOGY TECHNICIAN PM GEOLOGY TECHNICIAN Sena Zamarripa MD LAB_1 Performing Organization Address [facility]/ZIP [facility] Phon e Number [address] [address] [place], [place] [phone] BLOOD CULTURE SITE 1 (04/17/2007 5:50 PM GEOLOGY TECHNICIAN) Patholo gist Method Time Signature Specimen Blood AT IV REGIONS Description INSERTION Special Site 1 At IV REGIONS Requests Insertion Culture No Growth REGIONS After 6 Days Report Status Final REGIONS 04/23/2007 Specimen Anatomical Collection Method Collection Time Receive d Time (Source) Location / / Volume Laterality Blood specimen 04/17/2007 5:50 PM 007 6:25 (specimen) (At GEOLOGY TECHNICIAN PM GEOLOGY TECHNICIAN IV Insertion) Sena Zamarripa MD LAB_1 Performing Organization Address City/[facility]/ZIP [facility] Phon e Number [address] [address] [place], [place] [phone] CHEST PA/LATERAL (04/17/2007 3:51 PM GEOLOGY TECHNICIAN) Anatomical Region Laterality Modality Other Specimen (Source) Anatomical Collection Method Collection Time Re ceived Time Location / / Volume Laterality 04/17/2007 3:51 PM GEOLOGY TECHNICIAN Narrative 04/19/2007 1:34 PM GEOLOGY TECHNICIAN pneumonia: FEVER . CHEST 2 VIEWS 04/17/07 INDICATION: ??Fever and pneumonia. COMPARISON: ??None. FINDINGS: ??No infiltrates. ??Heart norm al size allowing for technique. Post-op change lower cervical spine. Sena Zamarripa MD RAD GENERAL DIAGNOSTIC/RH (ABNORMAL) BASIC METABOLIC PANEL (04/17/2007 7:10 AM GEOLOGY TECHNICIAN) athologist Signature BUN 5 (L) 10 - [...] Volume Laterality 04/17/2007 7:10 AM 7 7:30 GEOLOGY TECHNICIAN AM GEOLOGY TECHNICIAN Irene Mascorro MD LAB_1 Performing Organization Address [facility] Phon e Number [address] [address] [place], [place] [phone] (ABNORMAL) HEMOGRAM/PLTS (04/17/2007 7:10 AM GEOLOGY TECHNICIAN) athologist Signature WBC 11.0 4.0 - 11.0 [...] Volume Laterality 04/17/2007 7:10 AM 7 7:30 GEOLOGY TECHNICIAN AM GEOLOGY TECHNICIAN Irene Mascorro MD LAB_1 Performing Organization Address [facility] Phon e Number [address] [address] [place], [place] [phone] URINE CULTURE (04/16/2007 8:45 PM GEOLOGY TECHNICIAN) [facility] Method Time Signature Specimen Urine REGIONS Description Special Unspecified REGIONS Requests Culture No Growth After REGIONS 2 Days Report Status Final REGIONS 04/18/2007 Specimen Anatomical Collection Method Collection Time Receive d Time (Source) Location / / Volume Laterality 04/16/2007 8:45 PM 200 7 9:17 GEOLOGY TECHNICIAN PM GEOLOGY TECHNICIAN Zachary Kirkland MD LAB_1 Performing Organization Address [facility] Phon e Number [address] [address] [place], [place] [phone] (ABNORMAL) UA CONDITIONAL UC (04/16/2007 8:45 PM GEOLOGY TECHNICIAN) [facility] [employer] Method Time Signature Urine Color None REGIONS Urine Clarity Clear REGIONS Specific 1.001 (L) 1.005 - REGIONS [place] 1.03 pH, Urine 5.5 4.5 - 8.0 [...] specimen 04/16/2007 8:45 PM 007 9:00 (specimen) GEOLOGY TECHNICIAN PM GEOLOGY TECHNICIAN Irene Mascorro MD LAB_1 Performing Organization Address [facility] Phon e Number [address] [address] [place], [place] [phone] GOLD HOLD TUBE (OR RED/LOPZE) (04/16/2007 8:00 PM GEOLOGY TECHNICIAN) [facility] Method Time Signature Gold Hold Held in REGIONS Tube Chemistry sample rack for 7 days Specimen Anatomical Collection Method Collection Time Receive d Time (Source) Location / / Volume Laterality 04/16/2007 8:00 PM 7 8:21 GEOLOGY TECHNICIAN PM GEOLOGY TECHNICIAN Irene Mascorro MD LAB_1 Performing Organization Address [facility] Phon e Number [address] [address] [place], [place] [phone] BILIRUBIN, TOTAL & DIRECT (04/16/2007 8:00 PM GEOLOGY TECHNICIAN) P athologist Signature Bilirubin, 0.8 0.2 - 1.2 REGIONS Total mg/dl Bilirubin, 0.2 0.1 - 0.4 REGIONS Direct mg/dl Specimen Anatomical Collection Method Collection Time Receive d Time (Source) Location / / Volume Laterality 04/16/2007 8:00 PM 7 8:21 GEOLOGY TECHNICIAN PM GEOLOGY TECHNICIAN Irene Mascorro MD LAB_1 Performing Organization Address [facility]/ZIP [facility] Phon e Number [address] [address] [place], [place] [phone] ALKALINE PHOSPHATASE, TOTAL (04/16/2007 8:00 PM GEOLOGY TECHNICIAN) athologist Signature Alkaline 77 34 - 104 REGIONS Phosphatase U/L Specimen Anatomical Collection Method Collection Time Receive d Time (Source) Location / / Volume Laterality 04/16/2007 8:00 PM 7 8:21 GEOLOGY TECHNICIAN PM GEOLOGY TECHNICIAN Irene Mascorro MD LAB_1 Performing Organization Address City/[facility]/ZIP [facility] Phon e Number [address] [address] [place], [place] [phone] ALT (SGPT) (04/16/2007 8:00 PM GEOLOGY TECHNICIAN) P athologist Signature ALT (SGPT) 12 0 - 55 U/L REGIONS Specimen Anatomical Collection Method Collection Time Receive d Time (Source) Location / / Volume Laterality 04/16/2007 8:00 PM 7 8:21 GEOLOGY TECHNICIAN PM GEOLOGY TECHNICIAN Irene Mascorro MD LAB_1 Performing Organization Address City/[facility]/ZIP [facility] Phon e Number [address] [address] [place], [place] [phone] AST (04/16/2007 8:00 PM GEOLOGY TECHNICIAN) athologist Signature AST (SGOT) 21 <45 U/L REGIONS Specimen Anatomical Collection Method Collection Time Receive d Time (Source) Location / / Volume Laterality 04/16/2007 8:00 PM 7 8:21 GEOLOGY TECHNICIAN PM GEOLOGY TECHNICIAN Irene Mascorro MD LAB_1 Performing Organization Address [facility] Phon e Number [address] [address] [place], [place] [phone] (ABNORMAL) BASIC METABOLIC PANEL (04/16/2007 8:00 PM GEOLOGY TECHNICIAN) athologist Signature BUN 4 (L) 10 - [...] Volume Laterality 04/16/2007 8:00 PM 7 8:21 GEOLOGY TECHNICIAN PM GEOLOGY TECHNICIAN Irene Mascorro MD LAB_1 Performing Organization Address [facility] Phon e Number [address] [address] [place], [place] [phone] (ABNORMAL) HEMOGRAM/PLTS (04/16/2007 8:00 PM GEOLOGY TECHNICIAN) P athologist Signature WBC 10.8 4.0 - [...] Volume Laterality 04/16/2007 8:00 PM 7 8:21 GEOLOGY TECHNICIAN PM GEOLOGY TECHNICIAN Irene Mascorro MD LAB_1 Performing Organization Address [facility] Phon e Number [address] [address] [place], [place] [phone] BLOOD CULTURE SITE 2 (04/16/2007 8:00 PM GEOLOGY TECHNICIAN) Component Value Ref Test Analysis Performed At [facility] Range Method Time Signature Specimen Blood REGIONS Description Special Venipuncture REGIONS Requests Culture No Growth After REGIONS 6 Days Report Status Final 04/22/2007 REGIONS Specimen Anatomical Location Collection Method Collection Time Received Time (Source) / Laterality / Volume Blood specimen VENIPUNCTURE / 04/16/2007 8:00 04/16/20 07 8:56 (specimen) Unknown PM GEOLOGY TECHNICIAN PM GEOLOGY TECHNICIAN Irene Mascorro MD LAB_1 Performing Organization Address [facility] Phon e Number [address] [address] [place], [place] [phone] BLOOD CULTURE SITE 1 (04/16/2007 8:00 PM GEOLOGY TECHNICIAN) Component Value Ref Test Analysis Performed At [facility] Range Method Time Signature Specimen Blood REGIONS Description Special Venipuncture REGIONS Requests Culture No Growth After REGIONS 6 Days Report Status Final 04/22/2007 REGIONS Specimen Anatomical Location Collection Method Collection Time Received Time (Source) / Laterality / Volume Blood specimen VENIPUNCTURE / 04/16/2007 8:00 04/16/20 07 8:57 (specimen) Unknown PM GEOLOGY TECHNICIAN PM GEOLOGY TECHNICIAN Irene Mascorro MD LAB_1 Performing Organization Address City/State/ZIP Code Phon e Number [address] [address] [place], [place] [phone] CT PELVIS WITHOUT IV CONTRAST (04/16/2007 10:40 AM GEOLOGY TECHNICIAN) Anatomical Region Laterality Modality Other Specimen (Source) Anatomical Collection Method Collection Time Re ceived Time Location / / Volume Laterality 04/16/2007 10:40 AM GEOLOGY TECHNICIAN Impressions 04/19/2007 12:07 PM GEOLOGY TECHNICIAN IMPRESSION: Three Ray cages in the left sacroiliac j oint extra-articular recess. ??No evidence of loosening. ??Co mplete bony fusion is not yet appreciated. Narrative 04/19/2007 12:[address] sacrum, donna sacral joints from L4-acetabulum, [...] RAD CT/RH AP PELVIS (04/15/2007 10:50 AM GEOLOGY TECHNICIAN) Anatomical Region Laterality Modality Other Specimen (Source) Anatomical Collection Method Collection Time Re ceived Time Location / / Volume Laterality 04/15/2007 10:50 AM GEOLOGY TECHNICIAN Narrative 04/15/2007 10:50 AM GEOLOGY TECHNICIAN LEFT SI FUSION IN O.R.15 AT [phone] HRS. Zachary Kirkland MD RAD GENERAL DIAGNOSTIC/RH ABO Rh & Antibody Screen (Type & Screen) (04/15/2007 6:50 AM GEOLOGY TECHNICIAN) Patholo gist Method Time Signature Crossmatch 04/18/2007 REGIONS Expires ABO/RH(D) O POSITIVE REGIONS Antibody NEGATIVE REGIONS Screen Specimen Anatomical Collection Method Collection Time Receive d Time (Source) Location / / Volume Laterality 04/15/2007 6:50 AM 7 6:56 GEOLOGY TECHNICIAN AM GEOLOGY TECHNICIAN Zachary Kirkland MD LAB_1 Performing Organization Address City/State/ZIP Code Phon e Number [address] [address] [place], [place] [phone] documented in this encounter Visit Diagnoses Initial Assessments - Rosina Morgan - 04/17/2007 11:33 AM CST [facility] [place] [facility] Orthopedic ADL Evaluation Patient Name: [...] and safety the following equipment is recommended: Supervisor Blast Furnace: patient has Standard shower chair without backrest: patient has Additional Information: The patient had a sacroiliac fusion and is TDWB on the left LE. The patient lives with her and daughters. She states they will be able to assist her at home. The patient was able to complete lower body dressing with a netting inspector which she used previously at home. Will [...] home MIGUEL Holcomb/Marcos (pager) OT Dept #: [phone] - OT Weekend Pager #: [phone] - [facility] [place] Main #: [phone] OGY TECHNICIAN Initial Assessments - Jessica Romero - 04/16/2007 2:07 PM CST [facility] Physical Therapy Evaluation Patient Name: Megan [...] minutes Jessica Romero PT Phone number is [phone] Pager: [phone] OGY TECHNICIAN Initial Assessments - Iván Shin - 04/15/2007 1:09 PM CST [facility] Med-Surg, ICU Initial Assessment Note Patient Name: Megan Wong Date of : 1965 General Information Demographics Admitted from: OR to 9E Reason for admission: SI Fusion [facility] admission date/time: 04/15/2007 5:32 AM Actual arrival [...] of age or older OR patient has termite treater helper health problems? [residential health problems include chronic pulmonary or cardiovascular [...] Pain Level:3, Duration: intermittent, Current treatment methods: Pre K Teacher dilaudid, Method of expressing pain: Verbal, [...] there Guardianship issues affecting care planning? No Spiritual/Faith Is the nurse aware, at present, of any needs or issues for which support from the hospital supervisor bottle machines might be helpful to patient and/or family? (e.g. need or desire for spiritual support, difficulty coping, end of life issues, grief/loss, etc.) No. ([facility] makes daily rounds to all christianity patients.) Cultural On the Best Care/Best Experience [...] contributed to the completion of this document. OGY TECHNICIAN documented in this encounter Administered Medications Inactive Administered Medications - up to 3 most recent administrations Medication Order MAR Action Action Date Dose Rate Site bisacodyl (DULCOLAX) rectal Given 04/18/2007 9:00 AM GEOLOGY TECHNICIAN 10 mg suppository 10 mg 10 mg, Rectal, DAILY PRN, Constipation, Starting on Sun04/15/07 at 0800, Until Sun04/19/07 at 2053 calcium carb-vit D 500 mg-200 units (OSCAL Given 04/19 2:00 PM GEOLOGY TECHNICIAN 1 Tablet D) 1 Tab 1 Tablet, Oral, TID, First dose on Sun04/15/07 at 1400, Until Discontinued Given 04/19/2007 8:00 AM GEOLOGY TECHNICIAN 1 Tablet Given 04/18/2007 8:00 PM GEOLOGY TECHNICIAN 1 Tablet cefazolin (ANCEF) 1,000 mg in NS 50 mL IV Given 2006 12:00 AM GEOLOGY TECHNICIAN 1,000 mg Piggyback 1,000 mg (1 g), Intravenous, Administer over 30 Minutes, Q8H, First dose on Sun04/15/07 at 1600, For 2 doses, First dose given pre-opGive if not allergic to PCN or cephalosporins. Given 04/15/2007 4:00 PM GEOLOGY TECHNICIAN 1,000 mg citric acid/sodium citrate (BICITRA) oral Given 04/15/2007 6:42 AM GEOLOGY TECHNICIAN 30 mL solution 30 mL 30 mL, Oral, NOW, On Sun04/15/07 at 0642, For 1 dose D5W 0.45NS 20 KCl IV 1,000 mL Started 04/15/2007 9:49 PM GEOLOGY TECHNICIAN 1,000 mL 125 mL/hr 1,000 mL, Intravenous, at 125 mL/hr, CONTINUOUS, Starting on Sun04/15/07 at 0804 Started 04/15/2007 12:00 PM GEOLOGY TECHNICIAN 1,000 mL 125 mL/hr docusate (COLACE) capsule 100 mg Given 04/19/2007 8:00 AM GEOLOGY TECHNICIAN 100 mg 100 mg, Oral, BID, First dose on Sun04/15/07 at 2000, Until Discontinued Given 04/18/2007 8:00 PM GEOLOGY TECHNICIAN 100 mg Given 04/18/2007 8:00 AM GEOLOGY TECHNICIAN 100 mg enoxaparin (LOVENOX) injection 40 mg Given 04/19/2007 8:00 AM GEOLOGY TECHNICIAN 40 mg 40 mg, Subcutaneous, Q24H, First dose on Sun04/16/07 at 0800, Until Discontinued Given 04/18/2007 8:00 AM GEOLOGY TECHNICIAN 40 mg Given 04/17/2007 8:00 AM GEOLOGY TECHNICIAN 40 mg famotidine (PEPCID) IV 20 mg Given 04/15/2007 8:00 AM GEOLOGY TECHNICIAN 20 mg 20 mg, Intravenous, Q12H, First dose on Sun04/15/07 at 0800, Until Discontinued hydrocodone/acetaminophen (VICODIN) 5-500 Given 2006 5:18 PM GEOLOGY TECHNICIAN 2 Tablets MG 1-2 Tab 1-2 Tablet, Oral, Q4H PRN, Pain, Starting on Sun04/15/07 at 0800, Maximum Daily Acetaminophen dose for patients > 53 k g/day Maximum Daily Acetaminophen dose for patients < 53 k mg/kg/day This product contains 500 mg Acetaminophen per tablet. Given 04/19/2007 7:15 AM GEOLOGY TECHNICIAN 2 Tablets Given 04/18/2007 8:25 PM GEOLOGY TECHNICIAN 2 Tablets HYDROmorphone (DILAUDID) injection 0.1-0 .4 mg Given 04/15/2007 2:45 PM GEOLOGY TECHNICIAN 0.4 mg 0.1-0.4 mg, Intravenous, Q1-2H PRN, Pain, Starting on Sun04/15/07 at 0800, Until Sun04/19/07 at 2053 HYDROmorphone (DILAUDID) ROUNDING AND BACKING MACHINE OPERATOR 10 mg in NS Started 04/15/2007 12 :23 PM GEOLOGY TECHNICIAN mL/hr 50 mL IV infusion* Intravenous, TITRATE, Starting on Sun04/15/07 at 0809, Until Sun04/19/07 at 0832 hydrOXYzine (ATARAX) tablet 25-50 mg Given 04/19/2007 5:17 PM GEOLOGY TECHNICIAN 50 mg 25-50 mg, Oral, Q4H PRN, Pain, Starting on Sun04/15/07 at 0800, Until Sun04/19/07 at 2053 Given 04/19/2007 7:15 AM GEOLOGY TECHNICIAN 50 mg Given 04/18/2007 8:25 PM GEOLOGY TECHNICIAN 50 mg lansoprazole (PREVACID) capsule 30 mg Given 04/19/2007 8:00 AM GEOLOGY TECHNICIAN 30 mg 30 mg, Oral, DAILY, First dose on Sun04/17/07 at 1528, Until Discontinued Given 04/18/2007 8:00 AM GEOLOGY TECHNICIAN 30 mg Given 04/17/2007 5:00 PM GEOLOGY TECHNICIAN 30 mg lidocaine/EPINEphrine 1-1:248180 %, Given 04/15/2007 9:00 AM GEOLOGY TECHNICIAN 60 mL bupivacaine/EPINEphrine 0.5-1:175548 % at 0 , INTRA-OP, Starting on Sun04/15/07 at 0607, Verify Route and Dose with Surgeon Prior to Administration LR injection 1,000 mL Given 04/15/2007 6:44 AM GEOLOGY TECHNICIAN 1,000 mL 1,000 mL, Intravenous, at 30 mL/hr, PACU, Starting on Sun04/15/07 at 0618, Continuous magnesium citrate oral solution 296 mL Given 04/18/2007 11:29 AM GEOLOGY TECHNICIAN 296 mL 296 mL (1 Bottle), Oral, ONCE, On Elda 04/18/07 at 1129, For 1 dose meperidine (DEMEROL) injection 12.5-50 m g Given 04/15/2007 11:50 AM GEOLOGY TECHNICIAN 25 mg 12.5-50 mg, Intravenous, PACU, Starting on Sun04/15/07 at 1045, Until Sun04/15/07 at 1246, Up to a total dose of no more than 2 mg/kg. Use in PACU only milk of magnesia oral suspension 30 mL Given 04/18/2007 9:00 AM GEOLOGY TECHNICIAN 30 mL 30 mL, Oral, ONCE PRN, Constipation, Starting on Sun04/17/07 at 2200, Until Sun04/19/07 at 2053, Give dose at 22:00 on post-op day #2 if no BM by 48 hours post-op milk of magnesia oral suspension 30 mL Given 04/18/2007 9:45 PM GEOLOGY TECHNICIAN 30 mL 30 mL, Oral, ONCE, On Elda 04/18/07 at 2126, For 1 dose MORphine injectable 5 mg Given 04/15/2007 12:12 PM GEOLOGY TECHNICIAN 5 mg 5 mg, Intravenous, PACU, Starting on Sun04/15/07 at 1150, Until Sun04/15/07 at 1246, May give in incremental doses up to a maximum of 0.15 mg/kg. Use in PACU only Given 04/15/2007 11:52 AM GEOLOGY TECHNICIAN 5 mg multivitamin (HEXAVITAMIN) 1 Tab Given 04/19/2007 8:00 AM GEOLOGY TECHNICIAN 1 Tablet 1 Tablet, Oral, DAILY, First dose on Sun04/16/07 at 0800 Given 04/18/2007 8:00 AM GEOLOGY TECHNICIAN 1 Tablet Given 04/17/2007 8:00 AM GEOLOGY TECHNICIAN 1 Tablet NS IV 1,000 mL Started 04/17/2007 3:05 AM GEOLOGY TECHNICIAN 1,000 mL 125 mL/hr 1,000 mL, Intravenous, at 125 mL/hr, CONTINUOUS, Starting on Sun04/16/07 at 1818 Started 04/16/2007 7:00 PM GEOLOGY TECHNICIAN 1,000 mL 125 mL/hr ondansetron (ZOFRAN) injection 4 mg Given 04/19/2007 2:00 AM GEOLOGY TECHNICIAN 4 mg 4 mg, Intravenous, Q6H PRN, Nausea, Starting on Sun04/15/07 at 0800 Given 04/16/2007 12:50 PM GEOLOGY TECHNICIAN 4 mg oxycodone (OXYCONTIN) tablet 20 mg Given 04/19/2007 8:00 AM GEOLOGY TECHNICIAN 20 mg 20 mg, Oral, BID, First dose on Sun04/16/07 at 2155, DO NOT crush or cut in half. Given 04/18/2007 9:45 PM GEOLOGY TECHNICIAN 20 mg Given 04/18/2007 8:00 AM GEOLOGY TECHNICIAN 20 mg phosphate enema (FLEET) enema 118 mL Given 04/19/2007 7:00 AM GEOLOGY TECHNICIAN 118 mL 118 mL (1 Enema), Rectal, DAILY PRN, Starting on Sun04/15/07 at 0800, Until Sun04/19/07 at 2053, Constipation propoxyphene/acetaminophen (DARVOCET-N Given 04/17/2007 12:00 PM GEOLOGY TECHNICIAN 1 Tablet 100) 100-650 MG 1 Tab 1 Tablet, Oral, Q4H PRN, Pain, Starting on Sun04/15/07 at 0800, Maximum Daily Acetaminophen dose for patients > 53 k g/day Maximum Daily Acetaminophen dose for patients < 53 k mg/kg/day This product contains 650 mg Acetaminophen per tablet. Given 04/17/2007 6:40 AM GEOLOGY TECHNICIAN 1 Tablet Given 04/17/2007 12:35 AM GEOLOGY TECHNICIAN 1 Tablet documented in this encounter Active and Recently Administered Medications Times are shown in GEOLOGY TECHNICIAN. Scheduled Medication Order 04/17/2007 04/18/2007 04/19/2007 calcium [...] ued documented in this encounter Care Teams Gas Engine Operator Compressors Relationship Specialty Start Date End Date Jose Colin DO PCP - General 12/24/03 09/17/08 [address] [place] [address] documented as of this encounter
--- OUTSIDE RECORDS SUMMARY | 2022-02-02 09:28 | XMS_ITS | Encounter Summary ---
:1965 Author Organization [facility] Address [address] [place] [address] Care Team Providers Name Role Phone Jose Colin DO Primary Care Provider [phone] Reason for Visit Reason Onset Date Comments LAB TESTS, NOS 02/15/2006 Encounter Details Date Type Department Care Team Description 02/15/2006 Telephone Sunshine Alston CANCER PROGRAM CONSULTANT TESTS, NOS [address] AFTER HOU[facility] - [place], [place] [address] CARELINE [phone] [place], [place] [address] Social History Tobacco Use Types Packs/Day Years [...] has to be done and faxed to [facility] by tomorrow in order for her [...] t they received it. Call transferred to [facility]. Sunshine Landa RN documented in this encounter Plan of Treatment Not on filedocumented as of this encounter Visit Diagnoses Not on filedocumented in this encounter Care Teams Laundry Assistant Relationship Specialty Start Date End Date Jose Colin DO PCP - General 12/24/03 09/17/08 [address] [place] [id number] documented as of this encounter
--- OUTSIDE RECORDS SUMMARY | 2022-02-02 09:28 | XMS_ITS | Encounter Summary ---
:1965 Author Organization [facility] Address [address] [place] [address] Care Team Providers Name Role Phone Jose Colin DO Primary Care Provider [phone] Reason for Visit Reason Comments Suture/Staple Removal from back, incesion to abd w ith no visable sutures, no signs of infections. Encounter Details Date Type Department Care Team Description 03/01/2006 Office Visit [facility] Juanito Panda, Spinal Fusion (Primary Medicine MD Dx) [address] [place] [address] Social History Tobacco Use Types Packs/Day [...] underwent an AP fusion of L5-S1 at [facility] on 02/19/[address] Kirkland. For [...] status documented in this encounter Care Teams Prototype Sewer Relationship Specialty Start Date End Date Jose Colin DO PCP - General 12/24/03 09/17/08 [address] [place] [address] documented as of this encounter
--- OUTSIDE RECORDS SUMMARY | 2022-02-02 09:28 | XMS_ITS | Encounter Summary ---
:1965 Author Organization [facility] Address [address] [place] [address] Care Team Providers Name Role Phone Jose Colin DO Primary Care Provider Encounter Details Date Type Department Care Team Description 11/20/2005 Correspondence None Unknown, Physici an CONSENT AND RELEASE [address] [place], [place] [address] (Wo rk) Social History Tobacco Use Types [...] on filedocumented in this encounter Care Teams Mobile Heavy Equipment Mechanic Relationship Specialty Start Date End Date Jose Colin DO PCP - General 12/24/03 09/17/[address] [place] [phone] documented as of this encounter
--- OUTSIDE RECORDS SUMMARY | 2022-02-02 09:28 | XMS_ITS | Encounter Summary ---
:1965 [facility] Address [address], [place] [address] Care Team Providers Name Role Phone Unassigned, Provider Primary Care Provider Unavailable Encounter Details Date Type Department Care Team Description 02/19/2006 Outside Hospital External to Alejo, Rissa [facility] Social History Tobacco Use Types Packs/Day [...] on filedocumented in this encounter Care Teams Fisheries Management Biologist Relationship Specialty Start Date End Date Unassigned, Provider PCP - General 09/18/[address] [place] [address] documented as of this encounter
--- OUTSIDE RECORDS SUMMARY | 2022-02-02 09:28 | XMS_ITS | Encounter Summary ---
:1965 Author Organization [facility] Address [address], [place] [address] Care Team Providers Name Role Phone Dixie Jose Jerrell BOOGIE Primary Care Provider [phone] Encounter Details Date Type Department Care [...] 11/07/2005 20:32:53 Transcribed: 11/07/2005 22:32:42 Doc #: [id number] cc: Yun Flynn MD, Attending Physician Jose [...] 11/07/2005 OUTPATIENT OPERATIVE REPORT [facility] RECORD [address] [address] Page 1 Patient: PADMINI CHOI Location: [facility] HPN: [id number] Date of : 1965 Age: 40Y Visit Date: 11/07/2005 OUTPATIENT OPERATIVE REPORT documented in this encounter Miscellaneous Notes OR Nursing - Emmie Burch - 11/07/2005 9:44 AM CDT [facility] Progress Note Patient Name: Padmini Choi Date of : 1965 glycine 1.5% input 4850cc deficit 580cc mEmie Burch 11/07/2005 at 9:45 AM documented in [...] Results SURGICAL PATH (11/07/2005 12:00 AM CDT) [facility] Method Time Signature 9911 (NOTE) REGIONS [...] Signed Out By ? Gudelia Jaffe MD ([id number]) Procedures/Addenda Clinical History Excessive bleeding Gross Description [...] Microscopic examination is performed on six slides. enterprise11/08/2005 Gudelia Jaffe MD ([id number]) Specimen (Source) Anatomical Location Collection Method / Collectio n Time Received Time / Laterality Volume 11/07/2005 11/07/2005 Yun Flynn MD LAB_1 Performing Organization Address City/State/ZIP Code Phon e Number [address] [address] [place], [place] [phone] documented in this encounter Visit Diagnoses Not [...] Sun11/07/05 documented in this encounter Care Teams Belt And Link Assembly Supervisor Relationship Specialty Start Date End Date Jose Colin DO PCP - General 12/24/03 09/17/08 [address] [place] [address] documented as of this encounter
--- OUTSIDE RECORDS SUMMARY | 2022-02-02 09:28 | XMS_ITS | Encounter Summary ---
:1965 Author Organization [facility] Address [address] [place] [address] Care Team Providers Name Role Phone Jose Colin DO Primary Care Provider [phone] Reason for Visit Reason Onset Date Comments QUESTIONS, GENERAL 02/27/2007 Encounter Details Date Type Department Care Team Description 02/27/2007 Telephone [facility] Internal Med mikaylane Jose Colin QUESTIONS, GENERAL [address] [facility], [place] [address] [address] [facility] [phone] [place] [address] (Wo rk) Social History Tobacco [...] can be reached at work until 3:30pm ([phone]). Please call as soon as you can. Thank-you! Sincerely, Nestor Mitchell Her documented in this encounter Plan of Treatment Not on filedocumented as of this encounter Visit Diagnoses Diagnosis GERD (gastroesophageal reflux disease) - Primary Esophageal reflux documented in this encounter Care Teams Brush Worker Relationship Specialty Start Date End Date Jose Colin DO PCP - General 12/24/03 09/17/08 [address] [place] [address] documented as of this encounter
--- OUTSIDE RECORDS SUMMARY | 2022-02-02 09:28 | XMS_ITS | Encounter Summary ---
:1965 Author Organization [facility] Address [address] [place] [address] Care Team Providers Name Role Phone DixieJose Jerrell BOOGIE Primary Care Provider [phone] Reason for Visit Reason Comments Post Op Exam Encounter Details Date Type Department Care Team Description 11/20/2005 Office Visit [facility] Obstetrics and Yun Varma EN DOMETRIAL POLYP (Primary Dx); Gynecology EXCESSIVE MENSTRUATION [address] [place] [address] Social History Tobacco Use Types [...] CDT >> ALLISON HERRERA 11/20/2005 3:12 pm FILAMENT CUTTER POST OPERATIVE NURSE NOTE Megan Choi presents for post operative follow up. Date of surgery:11/07/05 Procedure: hysteroscopy dc Surgeon: dr varma PAIN ASSESSMENT: Ratin Duration: Not applicable Description: Cramping Emerson/sutures removed: NO Fever: NO Is home health [...] menstruation documented in this encounter Care Teams Radio Tower Technician Relationship Specialty Start Date End Date Jose Colin DO PCP - General 12/24/03 09/17/08 [address] [place] [address] documented as of this encounter
--- OUTSIDE RECORDS SUMMARY | 2022-02-02 09:28 | XMS_ITS | Encounter Summary ---
:1965 Author Organization [facility] Address [address] [place] [address] Care Team Providers Name Role Phone NickiJose murphy Edilia BOOGIE Primary Care Provider Encounter Details Date Type Department Care Team Description 04/15/2007 Surgery RH Operating Room Zachary Kirkland MD FUSION SACRAL ILIAC [address] [facility]. [address] [place] [address] [place] [address] [phone] (Wo rk) Social History Tobacco Use Types Packs/Day Years Used Date Smoking Tobacco: Never Alcohol Use Standard Drinks/Week Comments Yes 0 (1 standard drink = 0.6 oz pure alcoho l) rarely Sex Assigned at Date Recorded Not on file documented as of this encounter Last Filed Vital Signs Vital Sign Reading Time Taken Comments Blood Pressure 123/70 04/15/2007 6:07 AM DRILL OPERATOR AUTOMATIC Pulse 65 04/15/2007 6:07 AM DRILL OPERATOR AUTOMATIC Temperature 37.2 ??C (98.9 ??F) 04/15/2007 6:07 AM DRILL OPERATOR AUTOMATIC Respiratory Rate 16 04/15/2007 6:07 AM DRILL OPERATOR AUTOMATIC Oxygen Saturation 99% 04/15/2007 6:07 AM DRILL OPERATOR AUTOMATIC Inhaled Oxygen Concentration - - Weight 89.4 kg (197 lb) 04/15/2007 6:07 AM DRILL OPERATOR AUTOMATIC Height 160 cm (5' 3) 04/15/2007 6:07 AM DRILL OPERATOR AUTOMATIC Body Mass Index 34.9 04/15/2007 6:07 AM DRILL OPERATOR AUTOMATIC documented in this encounter Discharge Summaries Zachary Kirkland - 05/15/2007 9:55 AM DRILL OPERATOR AUTOMATIC ADMIT DATE: 04/15/2007 DISCHARGE DATE: 04/19/2007 FINAL [...] aspirin for anticoagulation prophylaxis. Zachary Kirkland MD [facility] Dictated: 05/15/2007 09:55:58 Transcribed: 05/16/2007 10:31:51 Doc #: [id number] cc:Zachary Kirkland MD, Referring Physician Jose Colin DO, Primary Physician 1 Page 1 Patient Name: MEGAN WONG DISCHARGE SUMMARY CONFIDENTIAL MEDICAL RECORD [address] [address] Page 1 Patient: MEGAN WONG Location: HPN: [id number] Admit Date: 04/15/2007 Date of : 1965 Discharge Date: 04/19/2007 Age: 42Y DISCHARGE SUMMARY L OPERATOR AUTOMATIC documented in this encounter Discharge Instructions Discharge InstructionsRobAmanda vasquez Kim - 04/19/2007 6:43 PM DRILL OPERATOR AUTOMATIC ` Discharge Instructions for: Megan Wong Thank you for choosing [facility] as your hospital. Please read the following instructions carefully. The staff will go over this information with you and answer your questions. General Information Allergies: Erythromycin Immunization: Most Recent Immunizations Name Date(s) Administered * Td, Preservative Free 06/16/2005 Phone number: [phone] (home) [phone] (work) Discharging physician: RICHARD Discharge date: 04/19/07 [...] the anticoagulation order. Contact information (name/clinic/phone number): [phone] When to Resume Normal Activities: Order Comments: [...] been sent to the following clinic:{[facility] FAX DESTINATION:[id number]} Home Care Instructions Patient Teaching Handouts INCISION [...] and/or chills Community Resources NONE Contact Information [address] [id number] For questions about your discharge instructions call the nursing unit : 9E Emergency & Urgently Needed Care: For emergencies call 911 and/or get medical help right away. If you are a [employer] member and have medical needs after clinic hours you may call the CareLine at [phone] or . Smoking and second-hand smoke exposure: Smoking damages blood vessels, reduces the oxygen in your blood and makes your heart beat too fast.If you smoke you should quit. Everyone should avoid second- hand smoke. If you would like further assistance after your discharge, please contact [phone] or visit [email or web address] can offer further information and assistance. You will receive a patient satisfaction survey either at the time of discharge or by mail in about two weeks. We want to hear about your stay at [facility]. Please help us improve by telling us about your experience . When leaving your room at discharge, please stop at the nursing unit desk to check out. I understand my discharge instructions: Megan Wong (or Hat Body Inspector) L OPERATOR AUTOMATIC documented in this encounter Medications at Time [...] Ant Thomas - 04/19/2007 6:27 PM CST [facility] Discharge Note - Nursing Patient Name: [...] by: Robert Pelaez RN ---End of Report--- L OPERATOR AUTOMATIC Maria E Galindo - 04/19/2007 2:25 PM CST I have evaluated this patient and reviewed all related documentation. Maria E Galindo RN 04/19/2007 2:35 PM L OPERATOR AUTOMATIC Lane Gilliland - 04/19/2007 1:56 AM CST [facility] Progress Note (Nursing) Patient Name: Megan [...] movement Lane Ballesteros, ---End of Report --- L OPERATOR AUTOMATIC Patti Lynch - 04/18/2007 10:57 PM CST [facility] Progress Note (Nursing) Patient Name: Megan [...] Patti Bahena RN ---End of Report --- L OPERATOR AUTOMATIC Jessica Romero - 04/18/2007 4:13 PM CST [facility] PT Progress Note Patient Name: Megan [...] Rosalia Sotelo - 04/18/2007 2:03 PM CST [facility] Progress Note (Nursing) Patient Name: Megan [...] Rosalia Schafer LPN ---End of Report --- L OPERATOR AUTOMATIC Sloane Harvey - 04/18/2007 2:03 PM CST PT HAS BEEN ASSESSED,AGREE WITH NOTE AND PLAN OF CARE. L OPERATOR AUTOMATIC Jessica Romero - 04/18/2007 12:57 PM CST [facility] PT Progress Note Patient Name: Megan [...] stairs upon d/c initially. Jessica Romero, PT L OPERATOR AUTOMATIC Rosina Morgan - 04/18/2007 11:44 AM CST [facility] [place] Occupational Therapy Progress Note Patient Name: Megan [...] minutes MIGUEL Holcomb/Marcos (pager) OT Dept #: [phone] - OT Weekend Pager #: [phone] - [facility] Main #: [phone] L OPERATOR AUTOMATIC Irene Mascorro - 04/18/2007 9:15 AM CST [facility] Progress Note (MD) Patient Name: Megan Wong Date of : 1965 Date of service: 04/18/07 Diagnosis: Sacroiliac fusion, fever, abdominal pain, prior lumbar fusion Admit Date/Time: 04/15/2007 5:32 AM Attending Prov: Zachary Kirkland Patient Service: Orthopedics Subjective: Patient feeling much better. OCEANOGRAPHER PHYSICAL stopped yesterday. Ambulating. Still has LLQ pain [...] 9:22 AM --- End of Report --- L OPERATOR AUTOMATIC Hannah Borrego - 04/18/2007 2:36 AM CST [facility] Progress Note (Nursing) Patient Name: Megan [...] Taniya Hanley - 04/17/2007 9:31 PM CST [facility] Progress Note (Nursing) Patient Name: Megan [...] fax to [facility]/ care coordinated with [facility] on duty. Refused flu vaccine and MOM ordered. Afebrile the whole shift. With pending blood cultures x 2 sites today and cxray results..IS at max volume when able. Plan: Monitor for comfort Continue cares Taniya Brewster RN ---End of Report --- L OPERATOR AUTOMATIC Zachary Kirkland - 04/17/2007 6:43 PM CST Post op day two. Alert, CMS intact, Reasonable comfort Progressing in PT No complication Zachary Kirkland MD L OPERATOR AUTOMATIC Sena Zamarripa - 04/17/2007 3:27 PM CST [...] bowel sounds present. No tenderness and distension. BEAVER TRAPPER Alert and oriented. Extremeties: No pitting edema, [...] 1 Tab Oral TID ??? HYDROmorphone (DILAUDID) OCEANOGRAPHER PHYSICAL 10 mg in NS 50 mL IV [...] fusion 4) Post-op pain control - dilaudid OCEANOGRAPHER PHYSICAL To continue IVF. Sena Zamarripa MD 04/17/2007, 3:32 PM [phone] Date of Service: 04/17/2007 Report completed by: Sena Zamarripa MD ([facility]) at 3:27 PM on 04/17/2007 L OPERATOR AUTOMATIC Jessica Romero - 04/17/2007 2:55 PM CST [facility] PT Progress Note Patient Name: Megan [...] bid in dept tomorrow. Jessica Romero, PT L OPERATOR AUTOMATIC Iván Shin - 04/17/2007 11:56 AM CST [facility] Progress Note (Nursing) Patient Name: Megan [...] Iván Shin RN ---End of Report --- L OPERATOR AUTOMATIC Kia Infante - 04/17/2007 11:39 AM CST [facility] Care Management Special Educator Initial Assessment Name: Megan Wong Admission Date/Time: 04/15/2007 5:32 AM Attending MD: Zachary Kirkland DATA Megan Wong was referred to this Special Educator for discharge planning. Chart reviewed, discussed with interdisciplinary team, as well as with patient and family. Megan Wong was admitted to for a L SI fusion Insurance: Payor: [employer] SELF [id number] Plan: [employer] SELF INSURED Product Type: *No [...] completed by Kia Infante RN, Pager Number [phone] L OPERATOR AUTOMATIC Christy Pizarro - 04/17/2007 1:31 AM CST [facility] Progress Note (Nursing) Patient Name: Megan [...] Sandra Cabrera - 04/16/2007 9:35 PM CST [facility] Progress Note (Nursing) Patient Name: Megan [...] 2500 cc of urine output via emery,dialudid OCEANOGRAPHER PHYSICAL discontinued and pt started on oral meds, notified regarding pt status and request for oycontin,pt bathed and repostitioned. Plan: Continue to monitor, turn Q2 hours, reassess need for emery in am, encourage IS. Sandra Blackmon RN ---End of Report --- L OPERATOR AUTOMATIC Irene Mascorro - 04/16/2007 6:00 PM CST [facility] Progress Note (MD) Patient Name: Megan [...] pyelonephritis. Incision pain okay, but on dilaudid OCEANOGRAPHER PHYSICAL. Occasionally desats due to sleepiness, but sats [...] 1 Tab Oral TID ??? HYDROmorphone (DILAUDID) OCEANOGRAPHER PHYSICAL 10 mg in NS 50 mL IV [...] NS 7) Post-op pain control - dilaudid OCEANOGRAPHER PHYSICAL Total time for chart review, exam and interview, following up on labs and ultimately reviewing AXR 35 minutes, coordination of care > 50%. Report Completed by: Irene Mascorro MD --- End of Report --- L OPERATOR AUTOMATIC Leanna French - 04/16/2007 2:14 PM CST [facility] Progress Note (Nursing) Patient Name: Megan Wong Date of : 1965 Identify/Problem(s): GENERAL STATU. Desired Outcome(s): Will be stabilized. Evaluation: Pt oriented but quite sleepy. On film inspector dilaudid with adequate pain control. C/o nausea, received prn zofran with relief. Incision to lower back is intact with some shadowing. Cms to LE intact. Vss exceptfor temp of 99.5 and 100.9 at 0800 and noon respectively. Lungs clear, encouraged IS usage. MD updated. Plan: Cont to monitor, assess and medicate as indicated. Leanna Perales Mba, RN ---End of Report --- L OPERATOR AUTOMATIC Rosina Morgan - 04/16/2007 1:02 PM CST [facility] Occupational Therapy The patient is scheduled to be seen by OT. MIGUEL Holcomb/Marcos (pager) OT Dept #: [phone] - OT Weekend Pager #: [phone] - [facility] Main #: [phone] Gavin Ortiz - 04/16/2007 10:25 AM CST [facility] Clinical Pharmacy Medication Reconciliation Note Patient Name: Megan Wong Date of : 1965 Medications Reviewed and Reconciled: Any medication adjustments made from patient's medication history regimen are appropriate for current hospitalization and medical condition. PHARMACIST NAME: Gavin Sanchez Phone/Pager #: [phone] -- End of Report -- Huseyin Dey - 04/16/2007 7:59 AM CST [facility] Progress Note (Nursing) Patient Name: Megan Wong Date of : 1965 Identify/Problem(s): pain Desired Outcome(s): Will have maximum Evaluation: Pt neuro intact, lower back incision d/i with small shadow, takes I.S to 1250, got 50mg of atarax for muscle pain with relief, repositioned often on this shift. BP improved. Used 4.73 mg of dilaudid OCEANOGRAPHER PHYSICAL-- new syringe placed at 0800. Presently lying down in bed without problem. Plan: Will continue to monitor Huseyin Miguel RN ---End of Report --- Zachary Porter - 04/16/2007 7:53 AM CST Post op day one Alert, CMS intact Reasonable comfort. No complication evident P: per protocol PT Zachary Kirkland MD Sandra Cabrera - 04/15/2007 11:57 PM CST [facility] Progress Note (Nursing) Patient Name: Megan Wong Date of : 1965 Identify/Problem(s): Comfort Desired Outcome(s): Will remain comfortable Evaluation: Vitals stable with exception of low BP, BP at 1600 103/61, recheck at 2000 102/57, LS clear, BS hypo, ate 50% of clear liquid dinner, denies N/V, SOB, CP, CMS + to BLE , moderate amount of shadowing noted, pain controlled with dilaudid OCEANOGRAPHER PHYSICAL (14.9 mg of dilauid used) and atarax, emery patent with good amount of output, plexipulses on BLE. Plan: Continue to monitor. Sandra Blackmon RN ---End of Report --- Iván Pinto - 04/15/2007 1:30 PM CST [facility] Nursing Post-Op Note Patient Name: Megan Wong Date of : 1965 Admission Date/Time: 04/15/2007 5:32 AM Returned to: 9E on (date) 04/15/07 at (time) 1230 from P.A.R. Transported by: Litter/cart Medical devices present on return from O.R.: IV General condition on return from O.R.: fair Report Completed by: Iván Shin RN ---End of Report--- L OPERATOR AUTOMATIC Zachary Kirkland - 04/15/2007 8:03 AM CST Post op note Left SI fusion for sacralgia No complications EBL 100 cc Plan per orders, OCEANOGRAPHER PHYSICAL, PT home in 2-3 days Zachary Kirkland MD L OPERATOR AUTOMATIC documented in this encounter Procedure Notes Zachary [...] was prepped and draped prone on a 4-claims adjuster. A longitudinal incision was made under x-ray [...] touch weight-bearing for 6 weeks, Lovenox and OCEANOGRAPHER PHYSICAL Dilaudid, home in 2-3 days. Zachary Kirkland MD mjb Dictated: 04/15/2007 11:00:01 Transcribed: 04/15/2007 11:53:11 Doc #: [id number] cc:Zachary Kirkland MD, Referring Physician Jose Colin, , Primary Physician DO NOT SIGN UNLESS PRESENT FOR PROCEDURE I attest that I was present for and participated in the ma portions of this procedure(s) in compliance with the Health Care Financing Administration Teaching Physician Guidelines. Signed Date Regions Staff Physician 1 Page 2 Patient Name: MEGAN WONG OPERATIVE REPORT CONFIDENTIAL MEDICAL RECORD [address] [address] Page 1 Patient: MEGAN WONG Location: [place] HPN: [id number] Admit Date: 04/15/2007 Date of : 1965 Discharge Date: Age: 42Y OPERATIVE REPORT L OPERATOR AUTOMATIC documented in this encounter Plan of Treatment Not on filedocumented as of this encounter Procedures Procedure Name Priority Date/Time Associated Comments Diagnosis COMPLETE BLOOD Routine 04/18/2007 6:25 AM Results for this COUNT-NO DIFF DRILL OPERATOR AUTOMATIC procedure are in the results section. BLOOD CULTURE SITE 2 Routine 04/17/2007 6:15 PM R esults for this DRILL OPERATOR AUTOMATIC procedure are i n the results section. BLOOD CULTURE Routine 04/17/2007 5:50 PM Results for this DRILL OPERATOR AUTOMATIC procedure are i n the results section. CHEST PA/LATERAL Routine 04/17/2007 3:51 PM Resul ts for this DRILL OPERATOR AUTOMATIC procedure are i n the results section. BASIC METABOLIC PANEL Routine 04/17/2007 7:10 AM Results for this DRILL OPERATOR AUTOMATIC procedure are i n the results section. COMPLETE BLOOD Routine 04/17/2007 7:10 AM Results for this COUNT-NO DIFF DRILL OPERATOR AUTOMATIC procedure are in the results section. URINE CULTURE Routine 04/16/2007 8:45 PM Results for this DRILL OPERATOR AUTOMATIC procedure are i n the results section. UA CONDITIONAL UC Routine 04/16/2007 8:45 PM Resu lts for this DRILL OPERATOR AUTOMATIC procedure are i n the results section. BLOOD CULTURE SITE 2 Routine 04/16/2007 8:00 PM R esults for this DRILL OPERATOR AUTOMATIC procedure are i n the results section. GOLD HOLD TUBE (OR Routine 04/16/2007 8:00 PM Res ults for this RED/LOPEZ) DRILL OPERATOR AUTOMATIC procedure are i n the results section. BLOOD CULTURE Routine 04/16/2007 8:00 PM Results for this DRILL OPERATOR AUTOMATIC procedure are i n the results section. BASIC METABOLIC PANEL Routine 04/16/2007 8:00 PM Results for this DRILL OPERATOR AUTOMATIC procedure are i n the results section. BILIRUBIN, TOTAL & Routine 04/16/2007 8:00 PM Res ults for this DIRECT DRILL OPERATOR AUTOMATIC procedure are i n the results section. COMPLETE BLOOD Routine 04/16/2007 8:00 PM Results for this COUNT-NO DIFF DRILL OPERATOR AUTOMATIC procedure are in the results section. ALT (SGPT) Routine 04/16/2007 8:00 PM Results f or this DRILL OPERATOR AUTOMATIC procedure are i n the results section. AST Routine 04/16/2007 8:00 PM Results f or this DRILL OPERATOR AUTOMATIC procedure are i n the results section. ALKALINE PHOSPHATASE, Routine 04/16/2007 8:00 PM Results for this TOTAL DRILL OPERATOR AUTOMATIC procedure are i n the results section. CT PELVIS WITHOUT IV Routine 04/16/2007 10:40 Res ults for this CONTRAST AM DRILL OPERATOR AUTOMATIC procedure are i n the results section. AP PELVIS Routine 04/15/2007 10:50 Results for this AM DRILL OPERATOR AUTOMATIC procedure are i n the results section. FUSION SACRAL ILIAC AM Admit 04/15/2007 7:50 AM SI PAIN DRILL OPERATOR AUTOMATIC Case Notes PROC: LEFT SI FUSION ABO RH & ANTIBODY SCREEN STAT 04/15/2007 6:50 AM DRILL OPERATOR AUTOMATIC Results for this procedure (TYPE & SCREEN) are in the r esults section. documented in this encounter Results (ABNORMAL) HEMOGRAM/PLTS (04/18/2007 6:25 AM DRILL OPERATOR AUTOMATIC) P athologist Signature WBC 10.3 4.0 - [...] Volume Laterality 04/18/2007 6:25 AM 7 6:36 DRILL OPERATOR AUTOMATIC AM DRILL OPERATOR AUTOMATIC Eddiedaedilia Zamarripa MD LAB_1 Performing Organization Address City/State/ZIP Code Phon e Number [address] [address] [place], [place] [phone] BLOOD CULTURE SITE 2 (04/17/2007 6:15 PM DRILL OPERATOR AUTOMATIC) Component Value Ref Test Analysis Performed At Patholo gist Range Method Time Signature Specimen Blood REGIONS Description VENIPUNCTURE Special Site 2 REGIONS Requests Venipuncture Culture No Growth After REGIONS 6 Days Report Status Final 04/23/2007 REGIONS Specimen Anatomical Location Collection Method Collection Time Received Time (Source) / Laterality / Volume Blood specimen VENIPUNCTURE / 04/17/2007 6:15 04/17/20 07 8:14 (specimen) Unknown PM DRILL OPERATOR AUTOMATIC PM DRILL OPERATOR AUTOMATIC Sena Zamarripa MD LAB_1 Performing Organization Address [facility]/ZIP [facility] Phon e Number [address] [address] [place], [place] [phone] BLOOD CULTURE SITE 1 (04/17/2007 5:50 PM DRILL OPERATOR AUTOMATIC) [facility] gist Method Time Signature Specimen Blood AT IV REGIONS Description INSERTION Special Site 1 At IV REGIONS Requests Insertion Culture No Growth REGIONS After 6 Days Report Status Final REGIONS 04/23/2007 Specimen Anatomical Collection Method Collection Time Receive d Time (Source) Location / / Volume Laterality Blood specimen 04/17/2007 5:50 PM 007 6:25 (specimen) (At DRILL OPERATOR AUTOMATIC PM DRILL OPERATOR AUTOMATIC IV Insertion) Sena Zamarripa MD LAB_1 Performing Organization Address City/[facility] Phon e Number [address] [address] [place], [place] [phone] CHEST PA/LATERAL (04/17/2007 3:51 PM DRILL OPERATOR AUTOMATIC) Anatomical Region Laterality Modality Other Specimen (Source) Anatomical Collection Method Collection Time Re ceived Time Location / / Volume Laterality 04/17/2007 3:51 PM DRILL OPERATOR AUTOMATIC Narrative 04/19/2007 1:34 PM DRILL OPERATOR AUTOMATIC pneumonia: FEVER . CHEST 2 VIEWS 04/17/07 INDICATION: ??Fever and pneumonia. COMPARISON: ??None. FINDINGS: ??No infiltrates. ??Heart norm al size allowing for technique. Post-op change lower cervical spine. Sena Zamarripa MD RAD GENERAL DIAGNOSTIC/RH (ABNORMAL) BASIC METABOLIC PANEL (04/17/2007 7:10 AM DRILL OPERATOR AUTOMATIC) athologist Signature BUN 5 (L) 10 - [...] Volume Laterality 04/17/2007 7:10 AM 7 7:30 DRILL OPERATOR AUTOMATIC AM DRILL OPERATOR AUTOMATIC Irene Mascorro MD LAB_1 Performing Organization Address [facility] Phon e Number [address] [address] [place], [place] [phone] (ABNORMAL) HEMOGRAM/PLTS (04/17/2007 7:10 AM DRILL OPERATOR AUTOMATIC) [facility] WBC 11.0 4.0 - 11.0 REGIONS [...] Volume Laterality 04/17/2007 7:10 AM 7 7:30 DRILL OPERATOR AUTOMATIC AM DRILL OPERATOR AUTOMATIC Irene Mascorro MD LAB_1 Performing Organization Address [facility] Phon e Number [address] [address] [place], [place] [phone] URINE CULTURE (04/16/2007 8:45 PM DRILL OPERATOR AUTOMATIC) [facility] Method Time Signature Specimen Urine REGIONS Description Special Unspecified REGIONS Requests Culture No Growth After REGIONS 2 Days Report Status Final REGIONS 04/18/2007 Specimen Anatomical Collection Method Collection Time Receive d Time (Source) Location / / Volume Laterality 04/16/2007 8:45 PM 7 9:17 DRILL OPERATOR AUTOMATIC PM DRILL OPERATOR AUTOMATIC Zachary Kirkland MD LAB_1 Performing Organization Address [facility] Phon e Number [address] [address] [place], [place] [phone] (ABNORMAL) UA CONDITIONAL UC (04/16/2007 8:45 PM DRILL OPERATOR AUTOMATIC) [facility] Method Time Signature Urine Color None REGIONS Urine Clarity Clear REGIONS Specific 1.001 (L) 1.005 - REGIONS Adrian,Ur 1.03 pH, Urine 5.5 4.5 - 8.0 [...] specimen 04/16/2007 8:45 PM 007 9:00 (specimen) DRILL OPERATOR AUTOMATIC PM DRILL OPERATOR AUTOMATIC Irene Mascorro MD LAB_1 Performing Organization Address [facility] Phon e Number [address] [address] [place], [place] [phone] GOLD HOLD TUBE (OR RED/LOPEZ) (04/16/2007 8:00 PM DRILL OPERATOR AUTOMATIC) [facility] Method Clute Signature Gold Hold Held in REGIONS Tube Chemistry sample rack for 7 days Specimen Anatomical Collection Method Collection Time Receive d Time (Source) Location / / Volume Laterality 04/16/2007 8:00 PM 7 8:21 DRILL OPERATOR AUTOMATIC PM DRILL OPERATOR AUTOMATIC Irene Mascorro MD LAB_1 Performing Organization Address [facility] Phon e Number [address] [address] [place], [place] [phone] BILIRUBIN, TOTAL & DIRECT (04/16/2007 8:00 PM DRILL OPERATOR AUTOMATIC) athologist Signature Bilirubin, 0.8 0.2 - 1.2 REGIONS Total mg/dl Bilirubin, 0.2 0.1 - 0.4 REGIONS Direct mg/dl Specimen Anatomical Collection Method Collection Time Receive d Time (Source) Location / / Volume Laterality 04/16/2007 8:00 PM 7 8:21 DRILL OPERATOR AUTOMATIC PM DRILL OPERATOR AUTOMATIC Irene Mascorro MD LAB_1 Performing Organization Address [facility] Phon e Number [address] [address] [place], [place] [phone] ALKALINE PHOSPHATASE, TOTAL (04/16/2007 8:00 PM DRILL OPERATOR AUTOMATIC) athologist Signature Alkaline 77 34 - 104 REGIONS Phosphatase U/L Specimen Anatomical Collection Method Collection Time Receive d Time (Source) Location / / Volume Laterality 04/16/2007 8:00 PM 7 8:21 DRILL OPERATOR AUTOMATIC PM DRILL OPERATOR AUTOMATIC Irene Mascorro MD LAB_1 Performing Organization Address City/[facility] Phon e Number [address] [address] [place], [place] [phone] ALT (SGPT) (04/16/2007 8:00 PM DRILL OPERATOR AUTOMATIC) P athologist Signature ALT (SGPT) 12 0 - 55 U/L REGIONS Specimen Anatomical Collection Method Collection Time Receive d Time (Source) Location / / Volume Laterality 04/16/2007 8:00 PM 7 8:21 DRILL OPERATOR AUTOMATIC PM DRILL OPERATOR AUTOMATIC Irene Mascorro MD LAB_1 Performing Organization Address City/[facility]/ZIP [facility] Phon e Number [address] [address] [place], [place] [phone] AST (04/16/2007 8:00 PM DRILL OPERATOR AUTOMATIC) athologist Signature AST (SGOT) 21 <45 U/L REGIONS Specimen Anatomical Collection Method Collection Time Receive d Time (Source) Location / / Volume Laterality 04/16/2007 8:00 PM 7 8:21 DRILL OPERATOR AUTOMATIC PM DRILL OPERATOR AUTOMATIC Irene Mascorro MD LAB_1 Performing Organization Address [facility] Phon e Number [address] [address] [place], [place] [phone] (ABNORMAL) BASIC METABOLIC PANEL (04/16/2007 8:00 PM DRILL OPERATOR AUTOMATIC) athologist Signature BUN 4 (L) 10 - [...] Volume Laterality 04/16/2007 8:00 PM 7 8:21 DRILL OPERATOR AUTOMATIC PM DRILL OPERATOR AUTOMATIC Irene Mascorro MD LAB_1 Performing Organization Address [facility] Phon e Number [address] [address] [place], [place] [phone] (ABNORMAL) HEMOGRAM/PLTS (04/16/2007 8:00 PM DRILL OPERATOR AUTOMATIC) P athologist Signature WBC 10.8 4.0 - [...] Volume Laterality 04/16/2007 8:00 PM 7 8:21 DRILL OPERATOR AUTOMATIC PM DRILL OPERATOR AUTOMATIC Irene Mascorro MD LAB_1 Performing Organization Address [facility] Phon e Number [address] [address] [place], [place] [phone] BLOOD CULTURE SITE 2 (04/16/2007 8:00 PM DRILL OPERATOR AUTOMATIC) Component Value Ref Test Analysis Performed At [facility] [employer] Range Method Time Signature Specimen Blood REGIONS Description Special Venipuncture REGIONS Requests Culture No Growth After REGIONS 6 Days Report Status Final 04/22/2007 REGIONS Specimen Anatomical Location Collection Method Collection Time Received Time (Source) / Laterality / Volume Blood specimen VENIPUNCTURE / 04/16/2007 8:00 04/16/20 07 8:56 (specimen) Unknown PM DRILL OPERATOR AUTOMATIC PM DRILL OPERATOR AUTOMATIC Irene Mascorro MD LAB_1 Performing Organization Address City/[facility] Phon e Number [address] [address] [place], [place] [phone] BLOOD CULTURE SITE 1 (04/16/2007 8:00 PM DRILL OPERATOR AUTOMATIC) Component Value Ref Test Analysis Performed At [facility] [employer] Range Method Time Signature Specimen Blood REGIONS Description Special Venipuncture REGIONS Requests Culture No Growth After REGIONS 6 Days Report Status Final 04/22/2007 REGIONS Specimen Anatomical Location Collection Method Collection Time Received Time (Source) / Laterality / Volume Blood specimen VENIPUNCTURE / 04/16/2007 8:00 04/16/20 07 8:57 (specimen) Unknown PM DRILL OPERATOR AUTOMATIC PM DRILL OPERATOR AUTOMATIC Irene Mascorro MD LAB_1 Performing Organization Address City/State/ZIP Code Phon e Number [address] [address] [place], [place] [phone] CT PELVIS WITHOUT IV CONTRAST (04/16/2007 10:40 AM DRILL OPERATOR AUTOMATIC) Anatomical Region Laterality Modality Other Specimen (Source) Anatomical Collection Method Collection Time Re ceived Time Location / / Volume Laterality 04/16/2007 10:40 AM DRILL OPERATOR AUTOMATIC Impressions 04/19/2007 12:07 PM DRILL OPERATOR AUTOMATIC IMPRESSION: Three Ray cages in the left sacroiliac j oint extra-articular recess. ??No evidence of loosening. ??Co mplete bony fusion is not yet appreciated. Narrative 04/19/2007 12:07 [address] DRILL OPERATOR AUTOMATIC ct sacrum, donna sacral joints from L4-acetabulum, [...] RAD CT/RH AP PELVIS (04/15/2007 10:50 AM DRILL OPERATOR AUTOMATIC) Anatomical Region Laterality Modality Other Specimen (Source) Anatomical Collection Method Collection Time Re ceived Time Location / / Volume Laterality 04/15/2007 10:50 AM DRILL OPERATOR AUTOMATIC Narrative 04/15/2007 10:50 AM DRILL OPERATOR AUTOMATIC LEFT SI FUSION IN O.R.15 AT 1359-7661 HRS. Zachary Kirkland MD RAD GENERAL DIAGNOSTIC/RH ABO Rh & Antibody Screen (Type & Screen) (04/15/2007 6:50 AM DRILL OPERATOR AUTOMATIC) Patholo gist Method Time Signature Crossmatch 04/18/2007 REGIONS Expires ABO/RH(D) O POSITIVE REGIONS Antibody NEGATIVE REGIONS Screen Specimen Anatomical Collection Method Collection Time Receive d Time (Source) Location / / Volume Laterality 04/15/2007 6:50 AM 7 6:56 DRILL OPERATOR AUTOMATIC AM DRILL OPERATOR AUTOMATIC Zachary Kirkland MD LAB_1 Performing Organization Address City/State/ZIP Code Phon e Number [address] [address] [place], [place] [phone] documented in this encounter Visit Diagnoses Initial Assessments - Rosina Morgan - 04/17/2007 11:33 AM [facility] [place] [facility] Orth[facility] ADL Evaluation Patient Name: [...] and safety the following equipment is recommended: Lead Designer: patient has Standard shower chair without backrest: patient has Additional Information: The patient had a sacroiliac fusion and is TDWB on the left LE. The patient lives with her and daughters. She states they will be able to assist her at home. The patient was able to complete lower body dressing with a packaging sales representative which she used previously at home. Will [...] home MIGUEL Holcomb/Marcos (pager) OT Dept #: [phone] - OT Weekend Pager #: [phone] - [facility] [place] Main #: [phone] L OPERATOR AUTOMATIC Initial Assessments - Jessica Romero - 04/16/2007 2:07 PM CST [facility] Physical Therapy Evaluation Patient Name: Megan [...] minutes Jessica Romero PT Phone number is [phone] Pager: [phone] L OPERATOR AUTOMATIC Initial Assessments - Iván Shin - 04/15/2007 1:09 PM CST [facility] Med-Surg, ICU Initial Assessment Note Patient Name: Megan Wong Date of : 1965 General Information Demographics Admitted from: OR to 9E Reason for admission: SI Fusion [facility] admission date/time: 04/15/2007 5:32 AM Actual arrival [...] of age or older OR patient has fdc health problems? [health center assistant health problems include chronic pulmonary or cardiovascular [...] Pain Level:3, Duration: intermittent, Current treatment methods: Cork Sorter dilaudid, Method of expressing pain: Verbal, Desired [...] there Guardianship issues affecting care planning? No Spiritual/Buddhist Is the nurse aware, at present, of any needs or issues for which support from the hospital jig builder helper might be helpful to patient and/or family? (e.g. need or desire for spiritual support, difficulty coping, end of life issues, grief/loss, etc.) No. ([facility] makes daily rounds to all hoahaoism patients.) Cultural On the Best Care/Best Experience [...] contributed to the completion of this document. L OPERATOR AUTOMATIC documented in this encounter Active and Recently Administered Medications Times are shown in DRILL OPERATOR AUTOMATIC. Scheduled Medication Order 04/17/2007 04/18/2007 04/19/2007 calcium [...] ued documented in this encounter Care Teams Machine Binding Folder Relationship Specialty Start Date End Date Jose Colin DO PCP - General 12/24/03 09/17/08 [address] [place] [address] documented as of this encounter
--- OUTSIDE RECORDS SUMMARY | 2022-02-02 09:28 | XMS_ITS | Encounter Summary ---
:1965 Author Organization [facility] Address [address], [place] [address] Care Team Providers Name Role Phone Unassigned, Provider Primary Care Provider Unavailable Encounter Details Date Type Department Care Team Description 02/19/2006 Outside Hospital External to Rissa Dhillon OPE RATIVE REPORT- [facility] Social History Tobacco Use Types Packs/Day [...] on filedocumented in this encounter Care Teams Seed Laboratory Technician Relationship Specialty Start Date End Date Unassigned, Provider PCP - General 09/18/[address] [place] [address] documented as of this encounter
--- OUTSIDE RECORDS SUMMARY | 2022-02-02 09:28 | XMS_ITS | Encounter Summary ---
:1965 Author Organization [facility] Address [address], [place] [address] Care Team Providers Name Role Phone Jose Colin DO Primary Care Provider [phone] Encounter Details Date Type Department Care Team Description 02/24/2006 Outside Hospital External to DISCHARGE SUMMARY/[facility] Social History Tobacco Use Types Packs/Day Years Used Date Smoking Tobacco: Never Alcohol Use Standard Drinks/Week Comments Yes 0 (1 standard drink = 0.6 oz pure alcoho l) rarely Sex Assigned at Date Recorded Not on file documented as of this encounter Progress Notes [facility], PROVIDER - 02/24/2006 12:00 AM CDT documented in this encounter Plan of Treatment Not on filedocumented as of this encounter Visit Diagnoses Not on filedocumented in this encounter Care Teams Naval Gunfire Spotter Relationship Specialty Start Date End Date Joes Colin DO PCP - General 12/24/03 09/17/08 [address] [place] [address] documented as of this encounter
--- OUTSIDE RECORDS SUMMARY | 2022-02-02 09:28 | XMS_ITS | Encounter Summary ---
:1965 Author Organization [facility] Address [address], [place] [address] Care Team Providers Name Role Phone Jose Colin DO Primary Care Provider [phone] Encounter Details Date Type Department Care Team Description 02/15/2006 Notes/Orders [facility] Brigido Patel, Other Best Lee RN Pre-Operative [facility] [address] [facility] Examination ([place] [address] [place], [place] Dx) [phone] Social History Tobacco Use Types Packs/Day Years [...] tonight and results will be faxed to [facility] Brigido Bates RN >> BRIGIDO BATES Elda [...] UA WITH MICRO (02/15/2006 6:38 PM CDT) [facility] gist Method Time Signature Appr Yellow [facility] [...] [facility] [phone] [facility] [phone] APTT (ACTIVATED PARTIAL THROMBOPLASTIN TIME (02/15/2006 6:38 PM CDT) athologist Signature PTT 27.6 24.0 - 37.0 [facility] sec Comment: Pre-Op [facility], [facility] Specimen Anatomical Collection Method Collection Time Receive d Time (Source) Location / / Volume Laterality 02/15/2006 6:38 PM 6 6:39 CDT PM CDT Jose Colin DO LAB_1 Performing Organization Address [facility]/ZIP [facility] Phon e Number [employer] [phone] [facility] [address] [place] [phone] SODIUM (02/15/2006 6:38 PM CDT) athologist Signature Sodium 140 135 - 145 [facility] mmol/L Comment: Performed at [facility] Specimen Anatomical Collection Method Collection Time Receive d Time (Source) Location / / Volume Laterality 02/15/2006 6:38 PM 6 6:39 CDT PM CDT Jose Colin DO LAB_1 Performing Organization Address [facility] Phon e Number [employer] [phone] [facility] [address] [place] [phone] POTASSIUM (02/15/2006 6:38 PM CDT) athologist Signature Potassium 4.3 3.5 - 5.3 [facility] mmol/L Comment: Performed at [facility] Specimen Anatomical Collection Method Collection Time Receive d Time (Source) Location / / Volume Laterality 02/15/2006 6:38 PM 6 6:39 CDT PM CDT Jose Colin DO LAB_1 Performing Organization Address [facility] Phon e Number [employer] [phone] [facility] [address] [place] [phone] INR/PROTIME (02/15/2006 6:38 PM CDT) athologist Signature Protime 12.9 12.0 - 14.5 [facility] sec Comment: Pre-Op Coumadin No [facility] INR 0.9 [facility] Pre-Op Specimen Anatomical Collection Method Collection Time Receive d Time (Source) Location / / Volume Laterality 02/15/2006 6:38 PM 6 6:39 CDT PM CDT Jose Colin DO LAB_1 Performing Organization Address City/[facility]/ZIP Code Phon e Number [facility] [phone] [facility] [address] [place] [phone] HEMOGRAM/PLTS/DIFF (02/15/2006 6:38 PM CDT) P [...] Lymph 36 17 - 43 % [facility] Metcalfe 10 4 - 12 % [facility] Eos 3 0 - 8 % [facility] Baso 1 0 - 1 % [facility] Neutrophil 3.8 1.8 - 7.7 [facility] Absolute k/ul Lymph Absolute 2.7 1.0 - 4.8 [facility] k/ul Metcalfe Absolute 0.7 0.1 - 0.7 [facility] k/ul Eos Absolute 0.2 0.0 - 0.5 [facility] k/ul Baso Absolute 0.1 0.0 - 0.2 [facility] k/ul Specimen Anatomical Collection Method Collection Time Receive d Time (Source) Location / / Volume Laterality 02/15/2006 6:38 PM 6 6:39 CDT PM CDT Jose Hassanangelitakatherine DO LAB_1 Performing Organization Address City/[facility]/ZIP Code Phon e Number [employer] [phone] [facility] [address] [phone] documented in this encounter Visit Diagnoses Diagnosis Other specified pre-operative examinatio n - Primary documented in this encounter Care Teams Ticket Seller Relationship Specialty Start Date End Date Jose Colin DO PCP - General 12/24/03 09/17/08 [address] [place] [address] documented as of this encounter
--- OUTSIDE RECORDS SUMMARY | 2022-02-02 09:28 | XMS_ITS | Encounter Summary ---
:1965 Author Organization [facility] Address [address] [place] [address] Care Team Providers Name Role Phone Jose Stack DO Primary Care Provider [phone] Reason for Visit Reason Onset Date Comments Refill 02/23/2007 Encounter Details Date Type Department Care Team Description 02/23/2007 Refill [facility] Jose Stack, Refill [facility] [address] [place] [address] [place], [place] [phone] [address] (Wo rk) Social History Tobacco Use [...] reflux documented in this encounter Care Teams Rail Operations Controller Relationship Specialty Start Date End Date Jose Stack DO PCP - General 12/24/03 09/17/08 [address] [place] [address] documented as of this encounter
--- OUTSIDE RECORDS SUMMARY | 2022-02-02 09:28 | XMS_ITS | Encounter Summary ---
:1965 Author Organization [facility] Address [address], [place] [address] Care Team Providers Name Role Phone Jose Colin DO Primary Care Provider [phone] Encounter Details Date Type Department Care [...] Progress Notes [facility], PROVIDER - 02/19/2006 12:00 AM CDT documented in this encounter Plan of Treatment Not on filedocumented as of this encounter Visit Diagnoses Not on filedocumented in this encounter Care Teams Director Labor Standards Relationship Specialty Start Date End Date Jose Colin DO PCP - General 12/24/03 09/17/08 [address] [place] [address] documented as of this encounter
--- OUTSIDE RECORDS SUMMARY | 2022-02-02 09:28 | XMS_ITS | Encounter Summary ---
:1965 Author Organization [facility] Address [address] [place] [address] Care Team Providers Name Role Phone Jose Colin DO Primary Care Provider [phone] Reason for Visit Reason Comments PRE-OP EXAM Encounter Details Date Type Department Care Team Description 02/13/2006 Office Visit [facility] [place] Internal [place] Preoperativ e Examination (Primary Dx); Medicine Jose Allan DO Lumbar Disc Disease; [address] [facility] [address] GERD (Gastroesophageal Reflux Disease); [place] [address] [place], [place] Insomnia [phone] Social History Tobacco Use Types Packs/Day Years [...] for surgery. She [facility] Zachary Kirkland. 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
--- OUTSIDE RECORDS SUMMARY | 2022-02-02 09:28 | XMS_ITS | Encounter Summary ---
:1965 Author Organization [facility] Address [address], [place] [address] Care Team Providers Name Role Phone Unassigned, Provider Primary Care Provider Unavailable Encounter Details Date Type Department Care Team Description 02/19/2006 Outside Hospital External to Rissa Dhillon OPE RATIVE REPORT- [facility] Social History Tobacco Use Types [...] filedocumented in this encounter Care Teams Electrical Parts Reconditioner Relationship Specialty Start Date End Date Unassigned, Provider PCP - General 09/18/[address] [place] [address] documented as of this encounter
--- OUTSIDE RECORDS SUMMARY | 2022-02-02 09:28 | XMS_ITS | Encounter Summary ---
:1965 Author Organization [facility] Address [address], [place] [address] Care Team Providers Name Role Phone DungJose gonzalez Primary Care Provider [phone] Reason for Visit Reason Onset Date Comments Bleeding Nos 11/14/2005 Encounter Details Date Type Department Care Team Description 11/14/2005 Telephone [facility] Obstetrics and Yun Flynn MD Bleeding Nos Gynecology [address] [place] [address] Social History Tobacco Use Types [...] on filedocumented in this encounter Care Teams Corporate Aircraft Mechanic Relationship Specialty Start Date End Date Jose Colin DO PCP - General 12/24/03 09/17/08 [address] [place] [address] documented as of this encounter
--- OUTSIDE RECORDS SUMMARY | 2022-02-02 09:28 | XMS_ITS | Encounter Summary ---
:1965 Author Organization [facility] Address [address] [place] [address] Care Team Providers Name Role Phone Jose Colin DO Primary Care Provider [phone] Reason for Visit Reason Comments EXAM,PRE-OP @ [facility] 04/[facility] Tobi lehman S1 joint Fusion Encounter Details Date Type Department Care Team Description 04/10/2007 Office Visit [facility] Dusty Flores Preoperati ve Clement Huang MD Examination (Primary [address] [facility] Dx) [place] [address] PRACTICE [phone] [place] [address] Social History Tobacco Use Types Packs/Day [...] 4:50 PM CDT Megan Choi, medical record [id number], is a 42 yr year old female who is here for presurgical assessment. She is scheduled for surgery at [facility] on 04/15/[address] Kirkland. HPI: Low [...] GHP QTc 430 ms MUSE GHP P Raymond 44 degrees MUSE GHP R Raymond -18 degrees MUSE GHP T Raymond 43 degrees MUSE GHP URL Link MUSE [...] e Number MUSE [facility] [address] [place] [address] MUSE [facility] [address] [place] [address] HEMOGRAM/PLTS (04/10/2007 4:01 PM CDT) P athologist Signature WBC 10.0 4.0 - 11.0 [facility] k/ul RBC 4.46 4.0 - 5.2 [facility] M/ul Hemoglobin 13.7 12.0 - 16.0 [facility] g/dl HCT 40.1 36.0 - 46.0 [facility] % MCV 90.0 80 - 100 fl [facility] MCH 30.8 26 - 34 pg [facility] MCHC 34.2 32 - 36 % [facility] RDW 12.6 11.5 - 14.5 [facility] % Platelets 244 150 - 450 [facility] k/ul Specimen Anatomical Collection Method Collection Time Receive d Time (Source) Location / / Volume Laterality 04/10/2007 4:01 PM 7 4:02 CDT PM CDT Dusty Flores MD LAB_1 Performing Organization Address City/State/[facility] Code Phon e Number [facility] [phone] [facility] [address] [phone] documented in this encounter Visit Diagnoses Diagnosis Preoperative examination - Primary Preoperative examination, unspecified documented in this encounter Care Teams Hair Mixer Relationship Specialty Start Date End Date Jose Colin DO PCP - General 12/24/03 09/17/08 [address] [place] [address] documented as of this encounter
--- OUTSIDE RECORDS SUMMARY | 2022-02-02 09:28 | XMS_ITS | Encounter Summary ---
:1965 Author Organization [facility] Address [address], [place] [address] Care Team Providers Name Role Phone DixieJose Jerrell BOOGIE Primary Care Provider [phone] Encounter Details Date Type Department Care Team Description 03/22/2006 Office Visit [facility] Huseyin Vogt, Arrived Cardiac Surgery PA-C [address] [facility] [address] [place] [address] [place] [address] [phone] (Wo rk) Social History Tobacco Use Types [...] Notes Huseyin Vogt - 04/11/2006 10:28 AM BRAZER ELECTRONIC VISIT DATE: 03/22/2006 I am seeing the [...] 03/22/2006 14:07:09 Transcribed: 03/25/2006 12:40:40 Doc #: [id number] cc:Jose Colin DO, Primary Physician This document was electronically reviewed by Huseyin Vogt PA-C on 04/04/2006 14:26:23. This document was electronically signed by Kleber Galvan MD on 04/11/2006 10:28:00. 1 Page 1 Patient Name: PADMINI CHOI Visit Date: 03/22/2006 CARDIOLOGY [facility] [address] [phone] Page 1 Patient: [facility]ADMINI CHOI [id number] Date of : 1965 Age: 40Y Visit Date: 03/22/2006 CARDIOLOGY documented in this encounter Nursing Notes 03/22/2006 2:00 PM CDT >> TRINY DELGADO 03/22/2006 2:18 pm Jose Colin DO PT HERE FOR F/U documented in this encounter Plan of Treatment Not on filedocumented as of this encounter Visit Diagnoses Not on filedocumented in this encounter Care Teams Director Of Retail Relationship Specialty Start Date End Date Jose Colin DO PCP - General 12/24/03 09/17/08 [address] [place] [address] documented as of this encounter
--- OUTSIDE RECORDS SUMMARY | 2022-02-02 09:28 | XMS_ITS | Encounter Summary ---
:1965 Author Organization [facility] Address [address] [place] [address] Care Team Providers Name Role Phone Jose Stack DO Primary Care Provider [phone] Reason for Visit Reason Onset Date Comments Refill 03/28/2007 Encounter Details Date Type Department Care Team Description 03/28/2007 Refill [facility] Jose Stack, Refill [address] [facility] [address] [place] [address] [place], [place] [phone] [address] (Wo rk) Social History Tobacco Use [...] reflux documented in this encounter Care Teams Hatch Tender Relationship Specialty Start Date End Date Jose Stack DO PCP - General 12/24/03 09/17/08 [address] [place] [address] documented as of this encounter
--- OUTSIDE RECORDS SUMMARY | 2022-02-02 09:28 | XMS_ITS | Encounter Summary ---
:1965 Author [facility] Address [address] [place] [address] Care Team Providers Name Role Phone Jose Colin DO Primary Care Provider [phone] Reason for Visit Reason Onset Date Comments QUESTIONS, GENERAL 12/15/2005 Encounter Details Date Type Department Care Team Description 12/15/2005 Telephone [facility] Jose Allan DO [address] [place], [place] [address] [place], [place] [phone] [address] Social History Tobacco Use Types Packs/Day [...] on filedocumented in this encounter Care Teams Demand Planner Relationship Specialty Start Date End Date Jose Colin DO PCP - General 12/24/03 09/17/08 [address] [place] [address] documented as of this encounter
--- OUTSIDE RECORDS SUMMARY | 2022-02-02 09:28 | XMS_ITS | Encounter Summary ---
:1965 [address] [facility] Address [address] [place] [address] Care Team Providers Name Role Phone Jose Stack DO Primary Care Provider [phone] Reason for Visit Reason Onset Date Comments RESULTS, BLOOD TEST, NOS 02/16/2006 Encounter Details Date Type Department Care Team Description 02/16/2006 Telephone [facility] Internal [place], RESULTS, BL OOD TEST, Medicine Jose Allan DO NOS [address] [facility] [address] [place] [address] [place], [place] [phone] Social History Tobacco Use Types Packs/Day [...] on filedocumented in this encounter Care Teams Photography Professor Relationship Specialty Start Date End Date Jose Stack DO PCP - General 12/24/03 09/17/08 [address] [place] [address] documented as of this encounter
--- OUTSIDE RECORDS SUMMARY | 2022-02-02 09:29 | XMS_ITS | Encounter Summary ---
:1965 Author Organization [facility] Address [address], [place] [address] Care Team Providers Name Role Phone DixeiJose Jerrell BOOGIE Primary Care Provider [phone] Reason for Visit Reason Comments Foot Pain follow up right foot pain ba ll of her foot, wanting another injection coritisone last done 06/26/05 Encounter Details Date Type Department Care Team Description 08/04/2005 Office Visit [facility] PL[facility] TAR [facility]E [facility] Foot and Ankle Surge ry DPNita (Primary Dx) [address] [place] [address] Social History Tobacco Use Types Packs/Day Years Used Date Smoking Tobacco: Never Alcohol Use Standard Drinks/Week Comments Yes 0 (1 standard drink = 0.6 oz pure alcoho l) rarely Sex Assigned at Date Recorded Not on file documented as of this encounter Last Filed Vital Signs Vital Sign Reading Time Taken Comments Blood Pressure 96/64 08/04/2005 2:00 PM MANAGER MEDICARE MARKETING Pulse 66 08/04/2005 2:00 PM MANAGER MEDICARE MARKETING Temperature 36.6 ??C (97.9 ??F) 08/04/2005 2:00 PM MANAGER MEDICARE MARKETING Respiratory Rate - - Oxygen Saturation - - Inhaled Oxygen Concentration - - Weight - - Height - - Body Mass Index - - documented in this encounter Progress Notes 08/04/2005 2:00 PM MANAGER MEDICARE MARKETING This office note has been dictated. MARÍA [...] All questions were answered. ?? P cc: GER MEDICARE MARKETING documented in this encounter Nursing Notes 08/04/2005 [...] Primary documented in this encounter Care Teams Oxygen Equipment Technician Relationship Specialty Start Date End Date Jose Colin DO PCP - General 12/24/03 09/17/08 [address] [place] [address] documented as of this encounter
--- OUTSIDE RECORDS SUMMARY | 2022-02-02 09:29 | XMS_ITS | Encounter Summary ---
:1965 Author Organization [facility] Address [address] [place] [address] Care Team Providers Name Role Phone Jose Colin DO Primary Care Provider [phone] Encounter Details Date Type Department Care Team Description 08/26/2005 Correspondence None Unknown, Physici an CONSENT AND RELEASE [address] [place], [place] [address] (Wo rk) Social History Tobacco Use Types Packs/Day Years Used Date Smoking Tobacco: Never Alcohol Use Standard Drinks/Week Comments Yes 0 (1 standard drink = 0.6 oz pure alcoho l) rarely Sex Assigned at Date Recorded Not on file documented as of this encounter Progress Notes Unknown, Physician - 08/26/2005 12:00 AM PRODUCT LINE MANAGER documented in this encounter Plan of Treatment Not on filedocumented as of this encounter Visit Diagnoses Not on filedocumented in this encounter Care Teams Exceptional Student Education Aide Relationship Specialty Start Date End Date Jose Colin DO PCP - General 12/24/03 09/17/[address] [place] [address] documented as of this encounter
--- OUTSIDE RECORDS SUMMARY | 2022-02-02 09:29 | XMS_ITS | Encounter Summary ---
:1965 Author Organization [facility] [address], [place] [address] Care Team Providers Name Role Phone DungJose gonzalez Primary Care Provider [phone] Encounter Details Date Type Department Care Team Description 07/19/2005 Office Visit [facility] Plastic Aravind Jose MD GANGLION NOS Surgery [address] [place] [address] Social History Tobacco Use Types Packs/Day Years Used Date Smoking Tobacco: Never Alcohol Use Standard Drinks/Week Comments Yes 0 (1 standard drink = 0.6 oz pure alcoho l) rarely Sex Assigned at Date Recorded Not on file documented as of this encounter Last Filed Vital Signs Vital Sign Reading Time Taken Comments Blood Pressure 115/65 07/19/2005 2:30 PM HEALTH CARE FACILITIES INSPECTOR Pulse 74 07/19/2005 2:30 PM HEALTH CARE FACILITIES INSPECTOR Temperature - - Respiratory Rate 12 07/19/2005 2:30 PM HEALTH CARE FACILITIES INSPECTOR Oxygen Saturation - - Inhaled Oxygen [...] a return to work notice. P cc: TH CARE FACILITIES INSPECTOR Aravind Jose - 07/19/2005 12:00 AM HEALTH CARE FACILITIES INSPECTOR TH CARE FACILITIES INSPECTOR documented in this encounter Nursing Notes 07/19/2005 [...] unspecified documented in this encounter Care Teams Ampoule Washing Machine Operator Relationship Specialty Start Date End Date Jose Colin DO PCP - General 12/24/03 09/17/08 [address] [place] [address] documented as of this encounter
--- OUTSIDE RECORDS SUMMARY | 2022-02-02 09:29 | XMS_ITS | Encounter Summary ---
:1965 Author Organization [facility] Address [address], [place] [address] Care Team Providers Name Role Phone DungJose gonzalez DO Primary Care Provider [phone] Encounter Details Date Type Department Care Team Description 07/04/2005 Office Visit [facility] Aravind Jose, [facility] [place] SYMPPietro Plastic Surgery [facility] [address] Social History Tobacco Use Types Packs/Day Years Used Date Smoking Tobacco: Never Alcohol Use Standard Drinks/Week Comments Yes 0 (1 standard drink = 0.6 oz pure alcoho l) rarely Sex Assigned at Date Recorded Not on file documented as of this encounter Last Filed Vital Signs Vital Sign Reading Time Taken Comments Blood Pressure 125/79 07/04/2005 2:15 PM APPLICATION COUNSELOR Pulse 77 07/04/2005 2:15 PM APPLICATION COUNSELOR Temperature - - Respiratory Rate 18 07/04/2005 2:15 PM APPLICATION COUNSELOR Oxygen Saturation - - Inhaled Oxygen [...] dominant 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 MEDICATIONS: Medications she takes at this time [...] earliest convenience for the patient. P cc: ICATION COUNSELOR documented in this encounter Nursing Notes 07/04/2005 [...] she is still having issues from. Sees Electric Frying Pan Repairer re: this problem. documented in this encounter Plan of Treatment Scheduled Referrals Name Type Priority Associated Diagnoses Order S chedule SURGERY Referral Routine Ganglion Nos Ordered: 2005 documented as of this encounter Visit Diagnoses Diagnosis Other symptoms referable to forearm join t documented in this encounter Care Teams Embroiderer Hand Relationship Specialty Start Date End Date Jose Colin DO PCP - General 12/24/03 09/17/08 [address] [place] [address] documented as of this encounter
--- OUTSIDE RECORDS SUMMARY | 2022-02-02 09:29 | XMS_ITS | Encounter Summary ---
:1965 Author Organization [facility] Address [address], [place] [address] Care Team Providers Name Role Phone Jose Colin Primary Care Provider Encounter Details Date Type Department Care Team Description 10/04/2005 Orders Only [facility] Obstetrics and Yun Flynn MD Gynecology [address], [place] [id number] Social History Tobacco Use Types Packs/Day Years [...] patient referred by Dr. Yun Flynn of [place]. TAPE NUMBER: [id number] ULTRASOUND INDICATIONS: [age] -year-old patient last period [...] patient referred by Dr. Yun Flynn of [facility]. TAPE NUMBER: [id number] ULTRASOUND INDICATIONS: [age] -year- old patient last [...] on filedocumented in this encounter Care Teams Stoker Mechanic Relationship Specialty Start Date End Date Jose Colin DO PCP - General 12/24/03 09/17/08 [address] [place] [address] documented as of this encounter
--- OUTSIDE RECORDS SUMMARY | 2022-02-02 09:29 | XMS_ITS | Encounter Summary ---
:1965 Author Organization [facility] Address [address], [place] [address] Care Team Providers Name Role Phone Jose Colin DO Primary Care Provider [phone] Encounter Details Date Type Department Care [...] Nicholas Shahid, Provider - 05/25/2005 12:00 AM RN PROGRESSIVE CARE UNIT documented in this encounter Plan of Treatment Not on filedocumented as of this encounter Visit Diagnoses Not on filedocumented in this encounter Care Teams Metal Hardener Relationship Specialty Start Date End Date Jose Colin DO PCP - General 12/24/03 09/17/08 [address] [place] [address] documented as of this encounter
--- OUTSIDE RECORDS SUMMARY | 2022-02-02 09:29 | XMS_ITS | Encounter Summary ---
:1965 Author Organization [facility] Address [address], [place] [address] Care Team Providers Name Role Phone Dungjosé antonioelbaJose medina Primary Care Provider [phone] Encounter Details Date Type Department Care Team Description 10/07/2005 Notes/Orders [facility] Obstetrics and Yun Flynn, EX CESSIVE MENSTRUATION; Gynecology MD PREVENTIVE CARE EXAM [address] [place], [place] [id number] Social History Tobacco Use Types Packs/Day Years [...] Yun Flynn MD LAB_1 Performing Organization Address [facility] Code Phon e Number [facility] [phone] [facility] [address] [place] [phone] TSH, SENSITIVE (WITH REFLEX) (10/07/2005 8:32 AM CDT) P athologist Signature TSH, with 1.80 0.3 - 5.0 [facility] Reflex uIU/ml Specimen Anatomical Collection Method Collection Time Receive d Time (Source) Location / / Volume Laterality 10/07/2005 8:32 AM 6 8:33 CDT AM CDT Yun Flynn MD LAB_1 Performing Organization Address [facility] Code Phon e Number [facility] [phone] [phone] (ABNORMAL) GLUCOSE - FASTING > 8 HRS FASTING (V77.1) (10/07/2005 8:31 AM CDT) Analysis Performed At Patho logist Time Signature Glucose 111 (H) 70 - 100 [facility] mg/dl Hours Fasting 12 hours [facility] Specimen Anatomical Collection Method Collection Time Receive d Time (Source) Location / / Volume Laterality 10/07/2005 8:31 AM 6 8:32 CDT AM CDT Yun Flynn MD LAB_1 Performing Organization Address [facility]/ZIP Code Phon e Number [facility] [phone] [phone] documented in this encounter Visit Diagnoses Diagnosis Excessive or frequent menstruation Routine general medical examination at [facility] facility Routine general medical examination at a health care facility documented in this encounter Care Teams Maintenance Service Technician Relationship Specialty Start Date End Date Jose Colin DO PCP - General 12/24/03 09/17/08 [place] [address] documented as of this encounter
--- OUTSIDE RECORDS SUMMARY | 2022-02-02 09:29 | XMS_ITS | Encounter Summary ---
:1965 Author Organization [facility] Address [address] [place] [address] Care Team Providers Name Role Phone Jose Colin DO Primary Care Provider [phone] Encounter Details Date Type Department Care Team Description 10/31/2005 Notes/Orders [facility] Internal [place], PREOP EXAM OTHER Medicine Jose Allan DO SPECIFIED [address] [facility] [address] [place] [address] [place], [place] [phone] [address] Social History Tobacco Use Types Packs/Day [...] TUBE & HOLD (10/31/2005 4:11 PM CDT) [facility] gist Method Time Signature Draw and Hold Specimen [facility] Available Based on Sample Stability Specimen Anatomical Collection Method Collection Time Receive d Time (Source) Location / / Volume Laterality 10/31/2005 4:11 PM 6 4:12 CDT PM CDT Jose Colin DO LAB_1 Performing Organization Address [facility] Phon e Number [employer] [facility] [phone] [facility] [address] [place] [phone] HEMOGRAM/PLTS/DIFF (10/31/2005 4:11 PM CDT) P athologist Signature WBC 7.7 4.0 - 11.0 [facility] k/ul RBC 4.27 4.0 - 5.2 [facility] M/ul Hemoglobin 13.2 12.0 - [facility] 16.0 g/dl HCT 37.8 36.0 - [facility] 46.0 % MCV 88.5 80 - 100 [facility] fl MCH 30.9 26 - 34 pg [facility] MCHC 34.9 32 - 36 % [facility] RDW 13.7 11.5 - [facility] 14.5 % Platelets 241 150 - 450 [facility] k/ul PMN/Band 56 43 - 72 % [facility] Lymph 34 17 - 43 % [facility] Cobb 7 4 - 12 % [facility] Eos 2 0 - 8 % [facility] Baso 1 0 - 1 % [facility] Neutrophil 4.3 1.8 - 7.7 [facility] Absolute k/ul Lymph Absolute 2.7 1.0 - 4.8 [facility] k/ul Cobb Absolute 0.6 0.1 - 0.7 [facility] k/ul Eos Absolute 0.2 0.0 - 0.5 [facility] k/ul Baso Absolute 0.1 0.0 - 0.2 [facility] k/ul Specimen Anatomical Collection Method Collection Time Receive d Time (Source) Location / / Volume Laterality 10/31/2005 4:11 PM 6 4:12 CDT PM CDT Jose Allan Nickikatherine DO LAB_1 Performing Organization Address [facility] Phon e Number [facility] [phone] [facility] [address] [place] [phone] documented in this encounter Visit Diagnoses Diagnosis Other specified pre-operative examinatio n documented in this encounter Care Teams Harp Maker Relationship Specialty Start Date End Date Cytrynowicz, Jose D, DO PCP - General 12/24/03 09/17/08 [address] [place] [address] documented as of this encounter
--- OUTSIDE RECORDS SUMMARY | 2022-02-02 09:29 | XMS_ITS | Encounter Summary ---
:1965 Author Organization [facility] Address [address] [place] [address] Care Team Providers Name Role Phone Jose Colin DO Primary Care Provider [phone] Reason for Visit Reason Comments RESULTS, TEST Labs. Consult from Dr. Cotto er Encounter Details Date Type Department Care Team Description 10/20/[address] [facility] Internal MARLA Colin FA STING GLUCOSE (Primary Dx); Medicine Jose Allan DO INSOMNIA NOS [address] [facility] [place] [place] [address] [place] [address] [place] [phone] Social History Tobacco Use Types Packs/Day [...] unspecified documented in this encounter Care Teams Elevator Inspector Relationship Specialty Start Date End Date Jose Colin DO PCP - General 12/24/03 09/17/08 [address] [place] [address] documented as of this encounter
--- OUTSIDE RECORDS SUMMARY | 2022-02-02 09:29 | XMS_ITS | Encounter Summary ---
:1965 Author Organization [facility] Address [address] [place] [address] Care Team Providers Name Role Phone Pipo Colinen Jerrell BOOGIE Primary Care Provider [phone] Encounter Details Date Type Department Care Team Description 07/13/2005 Hospital Encounter [facility] Clark Jose, [facility] [place] [address] Social History Tobacco Use Types Packs/Day Years Used Date Smoking Tobacco: Never Alcohol Use Standard Drinks/Week Comments Yes 0 (1 standard drink = 0.6 oz pure alcoho l) rarely Sex Assigned at Date Recorded Not on file documented as of this encounter Last Filed Vital Signs Vital Sign Reading Time Taken Comments Blood Pressure 111/54 07/13/2005 3:45 PM ORACLE HYPERION CONSULTANT Pulse 72 07/13/2005 3:45 PM ORACLE HYPERION CONSULTANT Temperature 36.6 ??C (97.8 ??F) 07/13/2005 2:15 PM ORACLE HYPERION CONSULTANT Respiratory Rate 16 07/13/2005 3:45 PM ORACLE HYPERION CONSULTANT Oxygen Saturation 93% 07/13/2005 3:45 PM ORACLE HYPERION CONSULTANT Inhaled Oxygen Concentration - - Weight 82.6 kg (182 lb 1.6 oz) 07/13/2005 11:59 AM ORACLE HYPERION CONSULTANT Height 160 cm (5' 3) 07/13/2005 11:59 AM ORACLE HYPERION CONSULTANT Body Mass Index 32.26 07/13/2005 11:59 AM ORACLE HYPERION CONSULTANT documented in this encounter Medications at Time [...] Notes Clark Jose - 07/13/2005 12:00 AM ORACLE HYPERION CONSULTANT DATE OF SURGERY: July 13, 2005 PREOPERATIVE [...] Jose MD Transcribed: 07/14/2005 08:17:07 Doc #: [id number] cc: Jose Colin DO, Referring/Primary DO NOT [...] 07/13/2005 OUTPATIENT OPERATIVE REPORT [facility]IAL [facility]ICAL RECORD [address] [phone] Page 1 Patient: PADMINI CHOI [id number] Date of : 1965 Age: 40Y Visit Date: 07/13/2005 OUTPATIENT OPERATIVE REPORT LE HYPERION CONSULTANT documented in this encounter Plan of Treatment Not on filedocumented as of this encounter Procedures Procedure Name Priority Date/Time Associated Diagnosis Comme nts EXCISION MASS FINGER OR HPSDS 07/13/2005 12:40 PM ORACLE HYPERION CONSULTANT HAND OR WRIST Case Notes right wrist ganglion cyst ex cision SURGICAL PATH Routine 07/13/2005 12:00 AM ORACLE HYPERION CONSULTANT Res ults for this procedure are in the results section . documented in this encounter Results SURGICAL PATH (07/13/2005 12:00 AM ORACLE HYPERION CONSULTANT) [facility] gist Method Time Signature 9911 (NOTE) [facility] Final Report Patient Name: PADMINI CHOI Taken: 07/13/2005 Received: 07/13/2005 Reported: 07/14/2005 Physician(s): CLARK JOSE ([id number]) ? Final Pathologic Diagnosis Soft tissue, right wrist, excision ??Ganglion cyst. cab/07/14/2005 Electronically Signed Out By ? Sudha Mahoney MD ([id number]) Procedures/Addenda Clinical History Cyst Gross Description The [...] examination is performed on one (1) slide. [facility]07/14/2005 Sudha Mahoney MD ([id number]) Specimen (Source) Anatomical Location Collection Method / Collectio n Time Received Time / Laterality Volume 07/13/2005 07/13/2005 Clark Jose MD LAB_1 Performing Organization Address City/State/ZIP Code Phon e Number [address] [address] [place], [place] [phone] documented in this encounter Visit Diagnoses Diagnosis Ganglion of joint documented in this encounter Administered Medications Inactive Administered Medications - up to 3 most recent administrations Medication Order MAR Action Action Date Dose Rate Site BUPIVACAINE HCL 0.5 % SOLN Given 07/13/2005 1:19 PM ORACLE HYPERION CONSULTANT 6 mL Injection, Starting on Elda 07/13/05 DEXAMETHASONE SODIUM PHOSPHATE 4 MG/ML IJ Given 07/13/2005 3:16 PM ORACLE HYPERION CONSULTANT 4 mg Port SOLN 4 mg, Intravenous, Starting on Elda 07/13/05, Until Elda 07/13/05 at 1731 FENTANYL CITRATE 0.05 MG/ML IJ SOLN Given 07/13/2005 2:02 PM ORACLE HYPERION CONSULTANT 50 mcg Port 50 mcg, Intravenous, Starting on Elda 07/13/05, Until Elda 07/13/05 at 1731 Given 07/13/2005 1:48 PM ORACLE HYPERION CONSULTANT 50 mcg Port KETOROLAC TROMETHAMINE 30 MG/ML IJ SOLN Given 07/13/2005 1:49 PM ORACLE HYPERION CONSULTANT 30 mg Port 30 mg, Intravenous, Starting on Elda 07/13/05, Until Elda 07/13/05 at 1731 METOCLOPRAMIDE HCL 5 MG/ML IJ SOLN Given 07/13/2005 3:13 PM ORACLE HYPERION CONSULTANT 10 mg Port 10 mg, Intravenous, Starting on Elda 07/13/05, Until Elda 07/13/05 at 1731 OXYCODONE-ACETAMINOPHEN Given 07/13/2005 1:45 PM ORACLE HYPERION CONSULTANT 1 Tablet 1 Tablet, Oral, Starting on Elda 07/13/05, Until Elda 07/13/05 at 1731 ZOFRAN 2MG/ML IV SOLN Given 07/13/2005 3:05 PM ORACLE HYPERION CONSULTANT 4 mg Port 4 mg, Intravenous, Starting on Elda 07/13/05 documented in this encounter Care Teams Rn Field Case Manager Relationship Specialty Start Date End Date Jose Colin DO PCP - General 12/24/03 09/17/08 [address] [place] [address] documented as of this encounter
--- OUTSIDE RECORDS SUMMARY | 2022-02-02 09:29 | XMS_ITS | Encounter Summary ---
:1965 Author Organization [facility] Address [address] [place] [address] Care Team Providers Name Role Phone Jose Colin DO Primary Care Provider [phone] Reason for Visit Reason Comments PRE-OP EXAM cyst removal on Rt wrist 07/[address] Jose at [facility] Encounter Details Date Type Department Care Team Description 07/10/2005 Office Visit [facility] Internal [place], PREOP EXAM OTHER SPECIFIED (Primary Dx); Medicine Jose Allan, RADICULAR CYST [address] [facility] [address] [place] [address] [place], [place] [phone] Social History Tobacco Use Types Packs/Day Years Used Date Smoking Tobacco: Never Alcohol Use Standard Drinks/Week Comments Yes 0 (1 standard drink = 0.6 oz pure alcoho l) rarely Sex Assigned at Date Recorded Not on file documented as of this encounter Last Filed Vital Signs Vital Sign Reading Time Taken Comments Blood Pressure 108/64 07/10/2005 3:20 PM BACK END ENGINEER Pulse 64 07/10/2005 3:20 PM BACK END ENGINEER Temperature 36.9 ??C (98.4 ??F) 07/10/2005 3:20 PM BACK END ENGINEER Respiratory Rate 16 07/10/2005 3:20 PM BACK END ENGINEER Oxygen Saturation - - Inhaled Oxygen Concentration - - Weight 82.6 kg (182 lb) 07/10/2005 3:20 PM BACK END ENGINEER Height 157.5 cm (5' 2) 07/10/2005 3:20 PM BACK END ENGINEER Body Mass Index 33.29 07/10/2005 3:20 PM BACK END ENGINEER documented in this encounter Progress Notes 07/10/2005 3:20 PM BACK END ENGINEER PRE-OP QUESTIONS: Tightening or pressure in chest [...] for surgery. She [facility] Jose. 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 Social History Main Topics Tobacco Use: [...] pulp documented in this encounter Care Teams Gang Punch Operator Relationship Specialty Start Date End Date Jose Colin DO PCP - General 12/24/03 09/17/08 [address] [place] [address] documented as of this encounter
--- OUTSIDE RECORDS SUMMARY | 2022-02-02 09:29 | XMS_ITS | Encounter Summary ---
:1965 Author Organization [facility] Address [address] [place] [address] Care Team Providers Name Role Phone Jose Colin DO Primary Care Provider [phone] Reason for Visit Reason Comments PRE-OP EXAM Encounter Details Date Type Department Care Team Description 10/31/2005 Office Visit [facility] Internal [place], PREOP EXAM OTHER SPECIFIED (Primary Dx); Medicine Jose Allan DO EXCESSIVE MENSTRUATION 205 [facility] [address] [place] [address] [place] [phone] [address] Social History Tobacco Use Types Packs/Day [...] for surgery. She isscheduled for surgery at [facility] on 11/07/[address] Hobson. HPI: long-standing menometthorgia and fibroids; The rest of the complete ROS are negative. 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* [employer] Social History Main Topics Tobacco Use: [...] TUBE & HOLD (10/31/2005 4:11 PM CDT) [facility] gist Method Time Signature Draw and Hold Specimen [facility] Available Based on Sample Stability Specimen Anatomical Collection Method Collection Time Receive d Time (Source) Location / / Volume Laterality 10/31/2005 4:11 PM 6 4:12 CDT PM CDT Jose Colin DO LAB_1 Performing Organization Address City/State/ZIP Code Phon e Number [facility] [phone] [facility] [address] [place] [phone] HEMOGRAM/PLTS/DIFF (10/31/2005 4:11 PM CDT) athologist [...] Lymph 34 17 - 43 % [facility] Sarpy 7 4 - 12 % [facility] Eos 2 0 - 8 % [facility] Baso 1 0 - 1 % [facility] Neutrophil 4.3 1.8 - 7.7 [facility] Absolute k/ul Lymph Absolute 2.7 1.0 - 4.8 [facility] k/ul Sarpy Absolute 0.6 0.1 - 0.7 [facility] k/ul Eos Absolute 0.2 0.0 - 0.5 [facility] k/ul Baso Absolute 0.1 0.0 - 0.2 [facility] k/ul Specimen Anatomical Collection Method Collection Time Receive d Time (Source) Location / / Volume Laterality 10/31/2005 4:11 PM 4:12 CDT PM CDT Jose Colin DO LAB_1 Performing Organization Address City/State/ZIP Code Phon e Number [facility] [phone] [phone] documented in this encounter Visit Diagnoses Diagnosis Other specified pre-operative examinatio n - Primary Excessive or frequent menstruation documented in this encounter Care Teams Second Baker Relationship Specialty Start Date End Date Jose Colin DO PCP - General 12/24/03 09/17/[address] [place] [address] documented as of this encounter
--- OUTSIDE RECORDS SUMMARY | 2022-02-02 09:29 | XMS_ITS | Encounter Summary ---
:1965 Author Organization [facility] Address [address], [place] [address] Care Team Providers Name Role Phone Jose Colin DO Primary Care Provider Encounter Details Date Type Department Care Team Description 10/04/2005 Office Visit [facility] director of primary care Ultra sound IRREGULAR MENSTRUATION; [address] [facility] [place] [address] Social History Tobacco Use Types Packs/Day Years [...] uteri documented in this encounter Care Teams Marine Equipment Preservation Inspector Relationship Specialty Start Date End Date Jose Colin DO PCP - General 12/24/03 09/17/08 [address] [place] [address] documented as of this encounter
--- OUTSIDE RECORDS SUMMARY | 2022-02-02 09:29 | XMS_ITS | Encounter Summary ---
:1965 Author Organization [facility] Address [address] [place] [address] Care Team Providers Name Role Phone MoJose medina DO Primary Care Provider [phone] Encounter Details Date Type Department Care [...] Comments Blood Pressure 123/62 07/13/2005 2:00 PM ASSISTANT QUALITY MANAGER Pulse 66 07/13/2005 2:00 PM ASSISTANT QUALITY MANAGER Temperature 36.6 ??C (97.8 ??F) 07/13/2005 11:59 AM ASSISTANT QUALITY MANAGER Respiratory Rate 16 07/13/2005 2:00 PM ASSISTANT QUALITY MANAGER Oxygen Saturation 100% 07/13/2005 2:00 PM ASSISTANT QUALITY MANAGER Inhaled Oxygen Concentration - - Weight 82.6 kg (182 lb 1.6 oz) 07/13/2005 11:59 AM ASSISTANT QUALITY MANAGER Height 160 cm (5' 3) 07/13/2005 11:59 AM ASSISTANT QUALITY MANAGER Body Mass Index 32.26 07/13/2005 11:59 AM ASSISTANT QUALITY MANAGER documented in this encounter Medications at [...] Notes Clark Jose - 07/13/2005 12:00 AM ASSISTANT QUALITY MANAGER DATE OF SURGERY: July 13, 2005 PREOPERATIVE [...] Jose MD Transcribed: 07/14/2005 08:17:07 Doc #: [id number] cc: Jose Colin DO, Referring/Primary DO NOT [...] 07/13/2005 OUTPATIENT OPERATIVE REPORT CONFIDENTIAL MEDICAL RECORD [address] [phone] Page 1 Patient: PADMINI CHOI [facility]: [id number] Date of : 1965 Age: 40Y Visit Date: 07/13/2005 OUTPATIENT OPERATIVE REPORT STANT QUALITY MANAGER documented in this encounter Plan of Treatment Not on filedocumented as of this encounter Procedures Procedure Name Priority Date/Time Associated Diagnosis Comme nts EXCISION MASS FINGER OR HPSDS 07/13/2005 12:40 PM ASSISTANT QUALITY MANAGER HAND OR WRIST Case Notes right wrist ganglion cyst ex cision SURGICAL PATH Routine 07/13/2005 12:00 AM ASSISTANT QUALITY MANAGER Res ults for this procedure are in the results section . documented in this encounter Results SURGICAL PATH (07/13/2005 12:00 AM ASSISTANT QUALITY MANAGER) [facility] gist Method Time Signature 9911 (NOTE) [facility] Final Report Patient Name: PADMINI CHOI Taken: 07/13/2005 Received: 07/13/2005 Reported: 07/14/2005 Physician(s): CLARK JOSE ([id number]) ? Final Pathologic Diagnosis Soft tissue, right wrist, excision ??Ganglion cyst. cab/07/14/2005 Electronically Signed Out By ? Sudha Mahoney MD ([id number]) Procedures/Addenda Clinical History Cyst Gross Description The [...] one (1) slide. cab/07/14/2005 Sudha Mahoney MD ([id number]) Specimen (Source) Anatomical Location Collection Method / Collectio n Time Received Time / Laterality Volume 07/13/2005 07/13/2005 Clark Jose MD LAB_1 Performing Organization Address City/State/ZIP Code Phon e Number [address] [address] [place], [place] [phone] documented in this encounter Visit Diagnoses Not on filedocumented in this encounter Administered Medications Inactive Administered Medications - up to 3 most recent administrations Medication Order MAR Action Action Date Dose Rate Site BUPIVACAINE HCL 0.5 % SOLN Given 07/13/2005 1:19 PM ASSISTANT QUALITY MANAGER 6 mL Injection, Starting on Elda 07/13/05 DEXAMETHASONE SODIUM PHOSPHATE 4 MG/ML IJ Given 07/13/2005 3:16 PM ASSISTANT QUALITY MANAGER 4 mg Port SOLN 4 mg, Intravenous, Starting on Elda 07/13/05, Until Elda 07/13/05 at 1731 FENTANYL CITRATE 0.05 MG/ML IJ SOLN Given 07/13/2005 2:02 PM ASSISTANT QUALITY MANAGER 50 mcg Port 50 mcg, Intravenous, Starting on Elda 07/13/05, Until Elda 07/13/05 at 1731 Given 07/13/2005 1:48 PM ASSISTANT QUALITY MANAGER 50 mcg Port KETOROLAC TROMETHAMINE 30 MG/ML IJ SOLN Given 07/13/2005 1:49 PM ASSISTANT QUALITY MANAGER 30 mg Port 30 mg, Intravenous, Starting on Elda 07/13/05, Until Elda 07/13/05 at 1731 METOCLOPRAMIDE HCL 5 MG/ML IJ SOLN Given 07/13/2005 3:13 PM ASSISTANT QUALITY MANAGER 10 mg Port 10 mg, Intravenous, Starting on Elda 07/13/05, Until Elda 07/13/05 at 1731 OXYCODONE-ACETAMINOPHEN Given 07/13/2005 1:45 PM ASSISTANT QUALITY MANAGER 1 Tablet 1 Tablet, Oral, Starting on Elda 07/13/05, Until Elda 07/13/05 at 1731 ZOFRAN 2MG/ML IV SOLN Given 07/13/2005 3:05 PM ASSISTANT QUALITY MANAGER 4 mg Port 4 mg, Intravenous, Starting on Elda 07/13/05 documented in this encounter Care Teams Sap Grc Security Relationship Specialty Start Date End Date Jose Colin DO PCP - General 12/24/03 09/17/08 [address] [place] [address] documented as of this encounter
--- OUTSIDE RECORDS SUMMARY | 2022-02-02 09:29 | XMS_ITS | Encounter Summary ---
:1965 Author Organization [facility] Address [address] [place] [address] Care Team Providers Name Role Phone Dixie Jose Jerrell BOOGIE Primary Care Provider [phone] Reason for Visit Reason Comments PAIN, FOOT follow up injection right fo ot metatarsal Encounter Details Date Type Department Care Team Description 07/12/2005 Office Visit [facility] Draper PLAN TAR NERVE LESION Foot and Ankle Surge ry DPM [address] [place] [address] Social History Tobacco Use Types Packs/Day Years Used Date Smoking Tobacco: Never Alcohol Use Standard Drinks/Week Comments Yes 0 (1 standard drink = 0.6 oz pure alcoho l) rarely Sex Assigned at Date Recorded Not on file documented as of this encounter Last Filed Vital Signs Vital Sign Reading Time Taken Comments Blood Pressure 127/68 07/12/2005 1:40 PM GRAY TENDER Pulse 66 07/12/2005 1:40 PM GRAY TENDER Temperature 35.7 ??C (96.3 ??F) 07/12/2005 1:40 PM GRAY TENDER Respiratory Rate - - Oxygen Saturation - - Inhaled Oxygen Concentration - - Weight - - Height - - Body Mass Index - - documented in this encounter Progress Notes 07/12/2005 1:40 PM GRAY TENDER This office note has been dictated. MARÍA [...] wear but fairly flexible, has added an [id number] arch support. PLAN: We discussed with the [...] reappoint in three weeks. ?? P cc: TENDER documented in this encounter Nursing Notes 07/12/2005 [...] nerve documented in this encounter Care Teams Rag Baler Relationship Specialty Start Date End Date Jose Colin DO PCP - General 12/24/03 09/17/08 [address] [place] [address] documented as of this encounter
--- OUTSIDE RECORDS SUMMARY | 2022-02-02 09:29 | XMS_ITS | Encounter Summary ---
:1965 [facility] Address [address], [place] [address] Care Team Providers Name Role Phone Jose Colin DO Primary Care Provider [phone] Reason for Visit Reason Onset Date Comments RESULTS, TEST 10/09/2005 Encounter Details Date Type Department Care Team Description 10/09/2005 Telephone [facility] Obstetrics and Cathy Vanegas LPN RESULTS, TEST Gynecology [address] [place] [address] [place] [address] [phone] Social History Tobacco Use Types Packs/Day Years [...] on filedocumented in this encounter Care Teams Accounts Receivable Representative Relationship Specialty Start Date End Date Jose Colin DO PCP - General 12/24/03 09/17/[address] [place] [address] documented as of this encounter
--- OUTSIDE RECORDS SUMMARY | 2022-02-02 09:29 | XMS_ITS | Encounter Summary ---
:1965 Author [facility] Address [address] [place] [address] Care Team Providers Name Role Phone Jose Stack DO Primary Care Provider [phone] Reason for Referral Specialty Diagnoses / Procedures Referred By Contact Refer red To Contact Jose Stack DO [address] [facility] [place] [address] Referral ID Status Reason Start Date Expiration Date Visits Requ ested Visits Authorized R CUTTER Specialty Diagnoses / Procedures Referred By Contact Refer red To Contact Jose Stack DO [address] [place], [place] [address] Referral ID Status Reason Start Date Expiration Date Visits Requ ested Visits Authorized R CUTTER Reason for Visit Reason Comments BACK PAIN f/u visit Encounter Details Date Type Department Care Team Description 06/16/2005 Office Visit [facility] Internal [place], PAIN IN MUSTAFA B (Primary Dx); Medicine Jose Allan DO VACCINE FOR TETANUS + DIPHTHERIA; 205 [facility] 599 [facility] [place]; [place] [address] [place] FX FOOT BONE NOS-CLOSED [phone] [address] Social History Tobacco Use Types Packs/Day Years Used Date Smoking Tobacco: Never Alcohol Use Standard Drinks/Week Comments Yes 0 (1 standard drink = 0.6 oz pure alcoho l) rarely Sex Assigned at Date Recorded Not on file documented as of this encounter Last Filed Vital Signs Vital Sign Reading Time Taken Comments Blood Pressure 112/74 06/16/2005 1:47 PM PAPER CUTTER Pulse 60 06/16/2005 1:47 PM PAPER CUTTER Temperature - - Respiratory Rate 16 06/16/2005 1:47 PM PAPER CUTTER Oxygen Saturation - - Inhaled Oxygen Concentration - - Weight 82.1 kg (181 lb) 06/16/2005 1:47 PM PAPER CUTTER Height 160 cm (5' 3) 06/16/2005 1:47 PM PAPER CUTTER Body Mass Index 32.06 06/16/2005 1:47 PM PAPER CUTTER documented in this encounter Patient Instructions Patient [id number]/06/2006 1:20 PM PAPER CUTTER PLEASE STOP AT CHECK OUT DESK BEFORE LEAVING THE CLINIC Schedule Appointment with the Specialist using the phone number provided Stop by Radiology for X-ray documented in this encounter Progress Notes 06/16/2005 1:20 PM PAPER CUTTER Quick Note by: JOSE STACK on 06/20/05 [...] foot injury - this summer; discussed at [facility]; may be causing back/leg pain; will [...] A cc: Jose Stack DO Radiology SP R CUTTER documented in this encounter Plan of Treatment [...] toes) documented in this encounter Care Teams Lawn Service Worker Relationship Specialty Start Date End Date Jose Stack DO PCP - General 7/15/04 4/9/09 [address] [place] [address] documented as of this encounter
--- OUTSIDE RECORDS SUMMARY | 2022-02-02 09:29 | XMS_ITS | Encounter Summary ---
:1965 Author Organization [facility] Address [address] [place] [address] Care Team Providers Name Role Phone Dungjosé antonioelbaJose medina Primary Care Provider [phone] Reason for Visit Reason Onset Date Comments Medication Questions 10/16/2005 Encounter Details Date Type Department Care Team Description 10/16/2005 Telephone [facility] Obstetrics and Yun Flynn MD Medication Questions Gynecology [address] [place] [address] Social History Tobacco Use Types [...] filedocumented in this encounter Care Teams Commercial Floor Covering Installer Relationship Specialty Start Date End Date Jose Colin DO PCP - General 12/24/03 09/17/08 [address] [place] [address] documented as of this encounter
--- OUTSIDE RECORDS SUMMARY | 2022-02-02 09:29 | XMS_ITS | Encounter Summary ---
:1965 Author Organization [facility] Address [address] [address] Care Team Providers Name Role Phone DungJose gonzalez Primary Care Provider [phone] Encounter Details Date Type Department Care Team Description 06/01/2005 Orders Only [facility] Radiology Unknown, Physician [address] [facility]. [address] [place] [address] [place] [address] [phone] (Wo rk) Social History Tobacco Use Types Packs/Day Years Used Date Smoking Tobacco: Never Alcohol Use Standard Drinks/Week Comments Yes 0 (1 standard drink = 0.6 oz pure alcoho l) rarely Sex Assigned at Date Recorded Not on file documented as of this encounter Procedure Notes Staci Cohen - 06/01/2005 12:00 AM CSTAssociated Order(s): MRI SC OMER EXPERIENCE PROFESSIONAL documented in this encounter Plan of Treatment Not on filedocumented as of this encounter Procedures Procedure Name Priority Date/Time Associated Diagnosis Comme nts MRI SC 06/01/2005 12:00 AM Results for this CUSTOMER EXPERIENCE PROFESSIONAL procedure are i n the results section. MAGNETIC SOURCE 06/01/2005 Results for this IMAGING procedure are i n the results section. documented in this encounter Results MRI SC (06/01/2005 12:00 AM CUSTOMER EXPERIENCE PROFESSIONAL) Anatomical Region Laterality Modality Other Narrative 06/01/2005 12:00 AM CUSTOMER EXPERIENCE PROFESSIONAL This result has an attachment that is no t available. Ordered by an unspecified provider. Transcriptions Staci Cohen - 06/01/2005 12:[address] Physician Unknown DUMMY/OTHER/AR documented in this encounter Visit Diagnoses Not on filedocumented in this encounter Care Teams Wireless Telegrapher Relationship Specialty Start Date End Date Jose Colin DO PCP - General 12/24/03 09/17/08 [address] [place] [address] documented as of this encounter
--- OUTSIDE RECORDS SUMMARY | 2022-02-02 09:29 | XMS_ITS | Encounter Summary ---
:1965 [facility] Address [address] [place] [address] Care Team Providers Name Role Phone Jose Colin DO Primary Care Provider [phone] Reason for Visit Reason Onset Date Comments Other 10/23/2005 Encounter Details Date Type Department Care Team Description 10/23/2005 Telephone [facility] Obstetrics a ma Gynecology Yun Flynn MD Other [address] [place], [place] [phone] Social History Tobacco Use Types Packs/Day Years [...] has been sched for 11/07/05 8 30 [facility] pt will sched preop post- op is [...] on filedocumented in this encounter Care Teams Promotions Assistant Sales Marketing Relationship Specialty Start Date End Date Jose Colin, PCP - General 12/24/03 09/17/08 [address] [place] [address] documented as of this encounter
--- OUTSIDE RECORDS SUMMARY | 2022-02-02 09:29 | XMS_ITS | Encounter Summary ---
:1965 Author [facility] Address [address] [place] [address] Care Team Providers Name Role Phone Unassigned, Provider Primary Care Provider Unavailable Encounter Details Date Type Department Care Team Description 10/31/2005 Orders Only [facility] Internal Med icine Unknown, Physician [address] [facility] [address] [place] [address] [place] [address] [phone] (Wo rk) Social History Tobacco Use Types [...] on filedocumented in this encounter Care Teams Ripsaw Grader Relationship Specialty Start Date End Date Unassigned, Provider PCP - General 09/18/08 [address] [place] [address] documented as of this encounter
--- OUTSIDE RECORDS SUMMARY | 2022-02-02 09:29 | XMS_ITS | Encounter Summary ---
:1965 Author Organization [facility] Address [address] [address] Care Team Providers Name Role Phone Jose Colin DO Primary Care Provider [phone] Encounter Details Date Type Department Care Team Description 07/04/2005 Correspondence [facility] Aravind Jose MD INFORMED CONSENT Plastic Surgery [address] [place] [address] Social History Tobacco Use Types Packs/Day Years Used Date Smoking Tobacco: Never Alcohol Use Standard Drinks/Week Comments Yes 0 (1 standard drink = 0.6 oz pure alcoho l) rarely Sex Assigned at Date Recorded Not on file documented as of this encounter Progress Notes Aravind Jose - 07/04/2005 12:00 AM FASHION ILLUSTRATOR ION ILLUSTRATOR documented in this encounter Plan of Treatment Not on filedocumented as of this encounter Visit Diagnoses Not on filedocumented in this encounter Care Teams Neuroscientist Relationship Specialty Start Date End Date Jose Colin DO PCP - General 12/24/03 09/17/[address] [place] [address] [place] [address] documented as of this encounter
--- OUTSIDE RECORDS SUMMARY | 2022-02-02 09:29 | XMS_ITS | Encounter Summary ---
:1965 Author Organization [facility] Address [address], [place] [address] Care Team Providers Name Role Phone Jose Colin DO Primary Care Provider [phone] Reason for Visit Reason Onset Date Comments ERRONEOUS ENTRY 06/16/2005 Encounter Details Date Type Department Care Team Description 06/16/2005 Telephone [facility] Jose Witt, ERRONEOUS ENTRY [address] [place] [address] 403 [facility] [phone] [place] [phone] (Wo rk) Social History Tobacco Use Types Packs/Day Years Used Date Smoking Tobacco: Never Alcohol Use Standard Drinks/Week Comments Yes 0 (1 standard drink = 0.6 oz pure alcoho l) rarely Sex Assigned at Date Recorded Not on file documented as of this encounter Nursing Notes 06/16/2005 11:59 PM SCRUM MASTER >> MELISSA OBREGON Fri Jun 16, 2005 2:05 PM Encounter initiated. documented in this encounter Plan of Treatment Not on filedocumented as of this encounter Visit Diagnoses Not on filedocumented in this encounter Care Teams Regulatory Scientist Relationship Specialty Start Date End Date Jose Colin, DO PCP - General 12/24/03 09/17/08 [address] [place] [address] documented as of this encounter
--- OUTSIDE RECORDS SUMMARY | 2022-02-02 09:29 | XMS_ITS | Encounter Summary ---
:1965 [facility] Address [address] [place] [address] Care Team Providers Name Role Phone Jose Colin DO Primary Care Provider [phone] Reason for Visit Reason Onset Date Comments QUESTIONS, GENERAL 09/26/2005 Encounter Details Date Type Department Care Team Description 09/26/2005 [facility] Allan DO [address] [place], [place] [address] [place], [place] [phone] [address] Social History Tobacco Use Types Packs/Day [...] on filedocumented in this encounter Care Teams Wireline Supervisor Relationship Specialty Start Date End Date Jose Colin, PCP - General 12/24/03 09/17/08 [address] [place] [address] documented as of this encounter
--- OUTSIDE RECORDS SUMMARY | 2022-02-02 09:29 | XMS_ITS | Encounter Summary ---
:1965 Author Organization [facility] Address [address] [place] [address] Care Team Providers Name Role Phone DixieJoes Jerrell BOOGIE Primary Care Provider [phone] Reason for Visit Reason Comments INFECTION, FINGER swollen and painful x 2 days Encounter Details Date Type Department Care Team Description 08/26/2005 Office Visit [facility] ONYCHIA OF FINGER ([place]) [address] [place], [place] [address] Social History Tobacco Use [...] - - Pulse 76 08/26/2005 10:45 AM BEAUTY PARLOR CLEANER Temperature 36.8 ??C (98.2 ??F) 08/26/2005 10:45 AM BEAUTY PARLOR CLEANER Respiratory Rate 14 08/26/2005 10:45 AM BEAUTY PARLOR CLEANER Oxygen Saturation - - Inhaled Oxygen Concentration - - Weight - - Height - - Body Mass Index - - documented in this encounter Progress Notes 08/26/2005 10:45 AM BEAUTY PARLOR CLEANER This Urgent Care encounter note has been [...] one week's time if unimproved. P cc: TY PARLOR CLEANER documented in this encounter Plan of Treatment Not on filedocumented as of this encounter Visit Diagnoses Diagnosis Onychia and paronychia of finger - Prima ry documented in this encounter Care Teams Belt Notcher Relationship Specialty Start Date End Date Jose Colin DO PCP - General 12/24/03 09/17/08 [address] [place] [address] documented as of this encounter
--- OUTSIDE RECORDS SUMMARY | 2022-02-02 09:29 | XMS_ITS | Encounter Summary ---
:1965 Author [facility] Address [address] [place] [address] Care Team Providers Name Role Phone Jose Colin DO Primary Care Provider [phone] Reason for Visit Reason Onset Date Comments RESULTS, TEST 06/06/2005 Encounter Details Date Type Department Care Team Description 06/06/2005 Telephone [facility] Jose Witt, RESULTS, TEST [address] [place] [address] 703 [facility] [phone] [place] [address] (Wo rk) Social History Tobacco Use Types Packs/Day Years Used Date Smoking Tobacco: Never Alcohol Use Standard Drinks/Week Comments Yes 0 (1 standard drink = 0.6 oz pure alcoho l) rarely Sex Assigned at Date Recorded Not on file documented as of this encounter Nursing Notes 06/06/2005 11:59 PM HEALTH AND FITNESS INSTRUCTOR >> BRIGIDO ROGERS [facility] Jun 09, 2005 8:18 AM Pt notified [...] back since Sunday. Can be reached at [phone] until 3:30 today. >> BOB S RENEE jeramie Jun 06, 2005 9:42 AM Pt had mri done @ [facility] & would like results. documented in this encounter Plan of Treatment Not on filedocumented as of this encounter Visit Diagnoses Not on filedocumented in this encounter Care Teams Principal Investigator Relationship Specialty Start Date End Date Jose Colin, PCP - General 12/24/03 09/17/08 [address] [place] [address] documented as of this encounter
--- OUTSIDE RECORDS SUMMARY | 2022-02-02 09:29 | XMS_ITS | Encounter Summary ---
:1965 Author Organization [facility] Address [address] [place] [address] Care Team Providers Name Role Phone DixieJose Jerrell BOOGIE Primary Care Provider [phone] Reason for Visit Reason Comments Follow Up Ultrasound Encounter Details Date Type Department Care Team Description 10/16/2005 Office Visit [facility]3] Obstetrics and Yun Flynn EN DOMETRIAL POLYP (Primary Dx); Gynecology EXCESSIVE MENSTRUATION [address] [place] [address] Social History Tobacco Use Types [...] menstruation documented in this encounter Care Teams Engineering Mathematician Relationship Specialty Start Date End Date Jose Colin DO PCP - General 12/24/03 09/17/08 [address] [place] [address] documented as of this encounter
--- OUTSIDE RECORDS SUMMARY | 2022-02-02 09:29 | XMS_ITS | Encounter Summary ---
:1965 [facility] Address [address], [place] [address] Care Team Providers Name Role Phone Jose Colin DO Primary Care Provider [phone] Reason for Visit Reason Onset Date Comments Sooner Appointment 10/05/2005 Encounter Details Date Type Department Care Team Description 10/05/[address] [facility] Obstetrics and Yun Flynn MD Sooner Appointment Gynecology [address] [place], [place] [address] Social History Tobacco Use Types Packs/Day Years Used Date Smoking Tobacco: Never Alcohol Use Standard Drinks/Week Comments Yes 0 (1 standard drink = 0.6 oz pure alcoho l) rarely Sex Assigned at Date Recorded Not on file documented as of this encounter Nursing Notes 10/05/2005 11:59 PM CDT >> RACHEL VANEGAS [facility] Oct 05, 2005 1:35 PM pt given appt. for f/u 10/16/05 8:45 dr avani Vanegas LPN 1:34 PM >> ANGELA MARTINEZ [facility] Oct 05, 2005 8:12 AM Pt. had an U/S appt. 10/04/05. Needs to sched. f/u appt. 1st avail. mid to end of October. Please advi se. documented in this encounter Plan of Treatment Not on filedocumented as of this encounter Visit Diagnoses Not on filedocumented in this encounter Care Teams Tankroom Worker Relationship Specialty Start Date End Date Jose Colin DO PCP - General 12/24/03 09/17/08 [address] [place] [address] documented as of this encounter
--- OUTSIDE RECORDS SUMMARY | 2022-02-02 09:29 | XMS_ITS | Encounter Summary ---
:1965 Author Organization [facility] [address], [place] [address] Care Team Providers Name Role Phone DungJose gonzalez Primary Care Provider [phone] Encounter Details Date Type Department Care Team Description 08/09/2005 Office Visit [facility] Plastic Aravind Jose MD GANGLION NOS Surgery [address] [place] [address] Social History Tobacco Use Types Packs/Day Years [...] on a p.r.n. basis only. P cc: ER SPLICER documented in this encounter Nursing Notes 08/09/2005 [...] unspecified documented in this encounter Care Teams Funeral Assistant Relationship Specialty Start Date End Date Jose Colin DO PCP - General 12/24/03 09/17/08 [address] [place] [address] documented as of this encounter
--- OUTSIDE RECORDS SUMMARY | 2022-02-02 09:29 | XMS_ITS | Encounter Summary ---
:1965 Author Organization [facility] Address [address] [place] [address] Care Team Providers Name Role Phone Jose Colin DO Primary Care Provider [phone] Reason for Visit Reason Comments TOE PAIN--ED right foot jamed her toes in to the door 3rd , 4th 5th toe Encounter Details Date Type Department Care Team Description 06/26/2005 [facility] Visit [facility] PLAN TAR NERVE LESION Foot and Ankle Surge ry DPM [address] [place] [address] Social History Tobacco Use Types Packs/Day Years Used Date Smoking Tobacco: Never Alcohol Use Standard Drinks/Week Comments Yes 0 (1 standard drink = 0.6 oz pure alcoho l) rarely Sex Assigned at Date Recorded Not on file documented as of this encounter Last Filed Vital Signs Vital Sign Reading Time Taken Comments Blood Pressure 121/71 06/26/2005 8:58 AM LINE LEAD Pulse 84 06/26/2005 8:58 AM LINE LEAD Temperature 36.2 ??C (97.2 ??F) 06/26/2005 8:58 AM LINE LEAD Respiratory Rate - - Oxygen Saturation - - Inhaled Oxygen Concentration - - Weight - - Height - - Body Mass Index - - documented in this encounter Progress Notes 06/26/2005 9:10 AM LINE LEAD This office note has been dictated. MARÍA [...] on her progress. ?? A cc: Jose Cloin DO LEAD documented in this encounter Plan of Treatment Not on filedocumented as of this encounter Visit Diagnoses Diagnosis Lesion of plantar nerve documented in this encounter Care Teams Market Superintendent Relationship Specialty Start Date End Date Jose Colin, PCP - General 12/24/03 09/17/08 [address] [place] [address] documented as of this encounter
--- OUTSIDE RECORDS SUMMARY | 2022-02-02 09:29 | XMS_ITS | Encounter Summary ---
:1965 Author Organization [facility] Address [address], [place] [address] Care Team Providers Name Role Phone MoJose medina Jerrell DO Primary Care Provider [phone] Reason for Referral Specialty Diagnoses / Procedures Referred By Contact Refer red To Contact Yun Flynn MD [address] [place] [address] Referral ID Status Reason Start Date Expiration Date Visits Requ ested Visits Authorized Reason for Visit Reason Comments Period Problems Encounter Details Date Type Department Care Team Description 10/02/2005 Office Visit [facility] Obstetrics and Yun Flynn, EX CESSIVE MENSTRUATION (Primary Dx); Gynecology MD PREVENTIVE CARE EXAM [address] [place] [address] Social History Tobacco Use Types [...] Body Mass Index 32.59 07/13/2005 11:59 AM SCRATCH BRUSHER documented in this encounter Progress Notes 10/02/2005 [...] the same time. Check cholesterol and glucose. STAFF OCCUPATIONAL THERAPIST ultrasound with SIS as indicated. Reviewed options. Is willing to use Provera x 12 days attempting to produce a 24 day cycle. These are ordered. Return following the ultrasound. P cc: documented in this encounter Nursing Notes 10/02/2005 3:40 PM CDT >> YUN FLYNN 10/02/2005 4:06 pm pt c/o irreg menses xfew mo. para 3003 bc tubal lig Yun Flynn MD 4:06 PM documented in this encounter Plan of Treatment Scheduled Referrals Name Type Priority Associated Diagnoses Order S chedule PELVIC/STAFF OCCUPATIONAL THERAPIST ULTRASOUND Referral Routine Excessive Menstruat ion Ordered: [...] <200 mg/dl [facility] Triglyceride 95 <200 mg/dl [facility] HDL 46 >35 mg/dl [facility] LDL, Calc. 123 mg/dl [facility] Hours Fasting 12 hours [facility] Specimen Anatomical Collection Method Collection Time Receive d Time (Source) Location / / Volume Laterality 10/07/2005 8:33 AM 6 8:34 CDT AM CDT Yun Flynn MD LAB_1 Performing Organization Address City/[facility] Phon e Number Tappit [phone] [facility] [address] [place] [phone] TSH, SENSITIVE (WITH REFLEX) (10/07/2005 8:32 AM CDT) athologist Signature TSH, with 1.80 0.3 - 5.0 [facility] Reflex uIU/ml Specimen Anatomical Collection Method Collection Time Receive d Time (Source) Location / / Volume Laterality 10/07/2005 8:32 AM 6 8:33 CDT AM CDT Yun Flynn MD LAB_1 Performing Organization Address [facility] Phon e Number fuseSPORT [phone] [facility] [address] [place] [phone] (ABNORMAL) GLUCOSE - FASTING > 8 HRS FASTING (V77.1) (10/07/2005 8:31 AM CDT) Analysis Performed At [facility] logist Time Signature Glucose 111 (H) 70 - 100 [facility] mg/dl Hours Fasting 12 hours [facility] Specimen Anatomical Collection Method Collection Time Receive d Time (Source) Location / / Volume Laterality 10/07/2005 8:31 AM 6 8:32 CDT AM CDT Yun Flynn MD LAB_1 Performing Organization Address City/State/ZIP Code Phon e Number [facility] [phone] [facility] [address] [phone] PAP TEST, ROUTINE (10/02/2005 12:00 AM CDT) Component Value Ref Test Analysis Performed At [facility] gist Range Method Time Signature Cytology, Pap (NOTE) [facility] Anchor Tacker Cytology Report Patient Name: PADMINI CHOI Taken: 10/02/2005 Received: 10/06/2005 Reported: 10/13/2005 Physician(s): YUN FLYNN ?Source of Specimen Liquid routine Pap, [...] Signed Out By ? Kelly Elmore MD ([id number]) Rakel Valle, ??CT (ASCP) ?Pap Smear History ?Date of Last Menstrual Period: ? 09/22/05 ?Contraceptive History: ?Not Stated/Unknown ?Other Clinical Conditions: ?LAST PAP: N/A HPV reflex testing requested with interpretation of ASCUS ? Specimen (Source) Anatomical Collection Method Collection Time Re ceived Time Location / / Volume Laterality 10/02/2005 10/06/2005 9:58 AM CDT Yun Flynn MD LAB_1 Performing Organization Address City/[facility] Phon e Number [address] [address] [place], [place] [phone] documented in this encounter Visit Diagnoses Diagnosis Excessive or frequent menstruation - Argelia shelly Routine general medical examination at [facility] Routine general medical examination at a [facility] care facility documented in this encounter Care Teams Labor Gang Supervisor Relationship Specialty Start Date End Date Jose Colin DO PCP - General 12/24/03 09/17/08 [address] [place] [address] documented as of this encounter
--- OUTSIDE RECORDS SUMMARY | 2022-02-02 09:29 | XMS_ITS | Encounter Summary ---
:1965 Author Organization [facility] Address [address], [place] [address] Care Team Providers Name Role Phone Jose Colin DO Primary Care Provider [phone] Encounter Details Date Type Department Care Team Description 11/07/2005 Hospital Encounter [facility] Same Day [facility] Flynn; Surgery Center MD Yun ENDOMETRIAL POLYP [address] [place] [address] Social History Tobacco Use Types [...] 11/07/2005 20:32:53 Transcribed: 11/07/2005 22:32:42 Doc #: [id number] cc: Yun Flynn MD, Attending Physician Jose [...] 11/07/2005 OUTPATIENT OPERATIVE REPORT CON[facility]IDENTIAL MEDICAL RECORD [address] [address] Page 1 Patient: PADMINI CHOI [id number] Date of : 1965 Age: 40Y Visit Date: 11/07/2005 OUTPATIENT OPERATIVE REPORT documented in this encounter Miscellaneous Notes OR Nursing - Emmie Burch - 11/07/2005 9:44 AM CDT [facility] Progress Note Patient Name: Padmini Choi Date [...] Results SURGICAL PATH (11/07/2005 12:00 AM CDT) [facility] Method Time Signature 9911 (NOTE) [facility] Final Report Patient Name: PADMINI CHOI Taken: 11/07/2005 Received: 11/07/2005 Reported: 11/08/2005 Physician(s): YUN FLNYN ? Final Pathologic Diagnosis A. ??Endometrium, curettage ?1. ??Fragments of benign endometrium admixed with frag ments of endometrial polyp and fragments of myometrium. ?2. ??Negative for hyperplasia and malignancy. B. ??Endometrium, polyp, curettage ?1. ??Fragments of endometrial polyp admixed with myome trium. ?2. ??Negative for hyperplasia and malignancy. /11/08/2005 Electronically Signed Out By ? Gudelia Jaffe MD ([id number]) Procedures/Addenda Clinical History Excessive bleeding Gross Description [...] on six slides. man/11/08/2005 Gudelia Jaffe MD ([id number]) Specimen (Source) Anatomical Location Collection Method / Collectio n Time Received Time / Laterality Volume 11/07/2005 11/07/2005 Yun Flynn MD LAB_1 Performing Organization Address City/State/ZIP Code Phon e Number [address] [address] [place], [place] [phone] documented in this encounter Visit Diagnoses Diagnosis [...] Sun11/07/05 documented in this encounter Care Teams Wildfire Prevention Specialist Relationship Specialty Start Date End Date Jose Colin DO PCP - General 12/24/03 09/17/08 [address] [place] [address] documented as of this encounter
--- OUTSIDE RECORDS SUMMARY | 2022-02-02 09:30 | XMS_ITS | Encounter Summary ---
:1965 Author Organization [facility] Address [address] [address] Care Team Providers Name Role Phone Jose Colin DO Primary Care Provider Encounter Details Date Type Department Care Team Description 11/14/2004 Correspondence External to Jose Colin OW-UP EVALUATION0/ D, DO [facility] [address] [place] [address] (Wo rk) Social History Tobacco [...] on filedocumented in this encounter Care Teams Wire Weaver Relationship Specialty Start Date End Date Jose Colin, DO PCP - General 12/24/03 09/17/08 [address] [place] [address] documented as of this encounter
--- OUTSIDE RECORDS SUMMARY | 2022-02-02 09:30 | XMS_ITS | Encounter Summary ---
:1965 Author Organization [facility] Address [address] [address] Care Team Providers Name Role Phone Jose Colin DO Primary Care Provider [phone] Encounter Details Date Type Department Care Team Description 07/15/2004 Orders Only [facility] Unknown, Physician [address] [facility] [address] [place] [address] [place] [address] [phone] (Wo rk) Social History Tobacco Use Types [...] SC 07/15/2004 12:00 AM Results for this HEEL BLACKER procedure are i n the results section. MAGNETIC SOURCE 07/15/2004 Results for this IMAGING procedure are i n the results section. documented in this encounter Results MRI SC (07/15/2004 12:00 AM HEEL BLACKER) Anatomical Region Laterality Modality Other Narrative 07/15/2004 12:00 AM HEEL BLACKER This result has an attachment that is no t available. Ordered by an unspecified provider. Transcriptions Unknown, Physician - 07/15/2004 12:00 AM HEEL BLACKER Physician Unknown DUMMY/OTHER/AR documented in this encounter Visit Diagnoses Not on filedocumented in this encounter Care Teams Forest Manager Relationship Specialty Start Date End Date Jose Colin, PCP - General 7/15/04 4/9/09 [address] [place] [address] documented as of this encounter
--- OUTSIDE RECORDS SUMMARY | 2022-02-02 09:30 | XMS_ITS | Encounter Summary ---
:1965 Author [facility] Address [address] [place] [address] Care Team Providers Name Role Phone Jose Stack DO Primary Care Provider [phone] Reason for Visit Reason Onset Date Comments Refill 02/15/2005 Encounter Details Date Type Department Care Team Description 02/15/2005 Refill [facility] Jose Stcak, DO Refill 205 [facility] [address] [place] [address] [place], [place] [phone] [address] (Wo rk) Social History Tobacco Use [...] nos documented in this encounter Care Teams Hat Blocker Relationship Specialty Start Date End Date Jose Stack DO PCP - General 12/24/03 09/17/08 [address] [place] [address] documented as of this encounter
--- OUTSIDE RECORDS SUMMARY | 2022-02-02 09:30 | XMS_ITS | Encounter Summary ---
:1965 Author Organization [facility] Address [address] [address] Care Team Providers Name Role Phone Jose Colin DO Primary Care Provider [phone] Encounter Details Date Type Department Care Team Description 11/23/2004 Therapy External to Yeyo Colin DO [address] [place] [address] (Wo rk) Social History Tobacco [...] filedocumented in this encounter Care Teams Director Data Analytics Relationship Specialty Start Date End Date Jose Colin DO PCP - General 12/24/03 09/17/08 [address] [place] [address] documented as of this encounter
--- OUTSIDE RECORDS SUMMARY | 2022-02-02 09:30 | XMS_ITS | Encounter Summary ---
:1965 Author Organization [facility] Address [address] [place] [address] Care Team Providers Name Role Phone Jose Colin DO Primary Care Provider [phone] Encounter Details Date Type Department Care Team Description 04/08/2004 Office Visit [facility] Internal Jose Colin DERM ATITIS NOS; Medicine D, DO SCIATICA(ACUTE); 205 [facility] [address] [place] [address] [place], [place] [phone] [address] (Wo rk) Social History Tobacco Use [...] Body Mass Index 31.09 09/02/2002 2:00 PM RECORDS MANAGEMENT MANAGER documented in this encounter Progress Notes 04/08/2004 [...] Status reviewed? (see History Social-Substance) -YES NEVER sales attendant offered? -NOT APPLICABLE. Aspirin taken daily? -NO BP was taken on the LEFT arm. BP cuff size used? -Adult Regular Health Education given? -NO. Contact phone number [phone] (home) [phone] (work), alternate phone number- Schuyler Kilgore MONSE [...] reflux documented in this encounter Care Teams Economic Geographer Relationship Specialty Start Date End Date Jose Colin, DO PCP - General 12/24/03 09/17/08 [address] [place] [address] documented as of this encounter
--- OUTSIDE RECORDS SUMMARY | 2022-02-02 09:30 | XMS_ITS | Encounter Summary ---
:1965 Author Organization [facility] Address [address], [place] [address] Care Team Providers Name Role Phone Unassigned, Provider Primary Care Provider Unavailable Encounter Details Date Type Department Care Team Description 08/23/2004 [facility] Day Gavin Justice MD Surgery Center [address] [place] [address] [place] [address] [phone] Social History Tobacco Use Types Packs/Day Years Used Date Smoking Tobacco: Never Smokeless Tobacco: Never Alcohol Use Standard Drinks/Week Comments Yes 0 (1 standard drink = 0.6 oz pure alcoho l) rarely Sex Assigned at Date Recorded Not on file documented as of this encounter Procedure Notes Jerome Garg - 08/23/2004 12:00 AM RESIDENTIAL DRIVER DATE OF SURGERY: August 23, 2004. STAFF [...] Justice MD Transcribed: 08/24/2004 07:37:56 Doc #: [id number] cc: Jose Colin, DO, Referring DO NOT SIGN UNLESS PRESENT FOR PROCEDURE I attest that I was present for and participated in the ma portions of this procedure(s) in compliance with the Health Care Financing Administration Teaching Physician Guidelines. Signed Date [facility] Staff Physician 1 Page 2 Patient Name: PADMINI CHOI Visit Date: 08/23/2004 OUTPATIENT OPERATIVE REPORT CONFIDENTIAL MEDICAL RECORD [address] [address] Page 1 Patient: PADMINI CHOI Location: PAIN HPN: [id number] Date of : 1965 Visit Date: 08/23/2004 OUTPATIENT OPERATIVE REPORT documented in this encounter Plan of Treatment Not on filedocumented as of this encounter Visit Diagnoses Not on filedocumented in this encounter Care Teams Veneer Grader Relationship Specialty Start Date End Date Unassigned, Provider PCP - General 09/18/[address] [place] [address] documented as of this encounter
--- OUTSIDE RECORDS SUMMARY | 2022-02-02 09:30 | XMS_ITS | Encounter Summary ---
:1965 Author Organization [facility] Address [address] [place] [address] Care Team Providers Name Role Phone Jose Stack DO Primary Care Provider [phone] Reason for Referral Specialty Diagnoses / Procedures Referred By Contact Refer red To Contact Jose Stack DO [address] [facility] [place] [place] [place] [address] Referral ID Status Reason Start Date Expiration Date Visits Requ ested Visits Authorized Reason for Visit Reason Onset Date Comments REFERRAL REQUEST 11/15/2004 Encounter Details Date Type Department Care Team Description 11/15/2004 Telephone [facility] Internal [facility] Jose Witt REFERRAL REQUEST [address] [place], [place] [phone] [facility] [phone] [place] [address] (Wo rk) Social History Tobacco [...] notified of referral, will be returning to [facility], [facility] # she will call to [facility], will fax refer ral Brigido Burch RN [...] Primary documented in this encounter Care Teams Bung Driver Relationship Specialty Start Date End Date Jose Stack DO PCP - General 12/24/03 09/17/08 [address] [place] [address] documented as of this encounter
--- OUTSIDE RECORDS SUMMARY | 2022-02-02 09:30 | XMS_ITS | Encounter Summary ---
:1965 Author Organization [facility] Address [address] [place] [address] Care Team Providers Name Role Phone Greyson Gonzalez MD Primary Care Provider Encounter Details Date Type Department Care Team Description 05/15/2003 Office Visit [facility] Mammogram I, Sp S CREENING MAMM-MAILG Mammography NEOPL-OTHER (Primary [address] [facility] Dx) [place] [address] Social History Tobacco Use Types Packs/Day Years Used Date Smoking Tobacco: Never Alcohol Use Standard Drinks/Week Comments Not Asked 0 (1 standard drink = 0.6 oz pure alcoho l) Sex Assigned at Date Recorded Not on file documented as of this encounter Procedure Notes uDsty Gonsalves - 05/15/2003 12:00 AM CSTAssociated Order(s): MAMMOGRAM, SCREENING CLINICAL DATA: Screening. EXAMINATION: Bilateral mammogram, 05/15/03. ACR BIRADS CATEGORY 1 - NEGATIVE MAMMOGRAM. FINDINGS: Nothing for malignancy. Dusty Gonsalves MD 10:42 A cc: AUDREY Moffett Radiology SP RACT CLERK documented in this encounter Plan of [...] cc: AUDREY Moffett Radiology SP Blank Perez SENIOR TABLEAU DEVELOPER, DOOR FRAME ASSEMBLER MACHINE RAD_BI documented in this encounter Visit Diagnoses Diagnosis Other screening mammogram - Primary documented in this encounter Care Teams Resp Therapist Relationship Specialty Start Date End Date Greyson Gonzalez MD PCP - General 04/15/01 12/23/03 [address] [place] [address] documented as of this encounter
--- OUTSIDE RECORDS SUMMARY | 2022-02-02 09:30 | XMS_ITS | Encounter Summary ---
:1965 Author Organization [facility] Address [address] [place] [address] Care Team Providers Name Role Phone Jose Colin DO Primary Care Provider [phone] Encounter Details Date Type Department Care Team Description 07/15/2004 Correspondence None Unknown, Physici an Regions Consent and Release [address] [place], [place] [address] (Wo rk) Social History Tobacco Use Types Packs/Day Years Used Date Smoking Tobacco: Never Alcohol Use Standard Drinks/Week Comments Not Asked 0 (1 standard drink = 0.6 oz pure alcoho l) Sex Assigned at Date Recorded Not on file documented as of this encounter Progress Notes Unknown, Physician - 07/15/2004 12:00 AM ASSISTANT BUYER documented in this encounter Plan of Treatment Not on filedocumented as of this encounter Visit Diagnoses Not on filedocumented in this encounter Care Teams Photography Editor Relationship Specialty Start Date End Date Jose Colin DO PCP - General 12/24/03 09/17/[address] [place] [address] documented as of this encounter
--- OUTSIDE RECORDS SUMMARY | 2022-02-02 09:30 | XMS_ITS | Encounter Summary ---
:1965 Author Organization [facility] Address [address] [place] [address] Care Team Providers Name Role Phone Jose Colin DO Primary Care Provider [phone] Encounter Details Date Type Department Care Team Description 04/21/2004 Notes/Orders [facility] Internal [place], DERMATITIS NOS Medicine Jose Allan DO (Primary Dx) [address] [facility] [address] [place] [address] [place] [phone] [address] Social History Tobacco Use Types Packs/Day [...] Primary documented in this encounter Care Teams Cabinet Professional Relationship Specialty Start Date End Date Jose Colin DO PCP - General 12/24/03 09/17/08 [address] [place] [address] documented as of this encounter
--- OUTSIDE RECORDS SUMMARY | 2022-02-02 09:30 | XMS_ITS | Encounter Summary ---
:1965 Author Organization [facility] Address [address], [place] [address] Care Team Providers Name Role Phone Jose Colin DO Primary Care Provider Reason for Visit Reason Onset Date Comments RESULTS, TEST 09/26/2004 opened in error Encounter Details Date Type Department Care Team Description 09/23/2004 Telephone [facility] Internal [place], RESULTS, TE ST (opened Medicine Jose Allan DO in error) 205 [facility] [address] [place] [address] [place], [place] [phone] [address] Social History Tobacco Use Types Packs/Day [...] filedocumented in this encounter Care Teams Label Machine Operator Relationship Specialty Start Date End Date Jose Colin DO PCP - General 12/24/03 09/17/08 [address] [place] [address] documented as of this encounter
--- OUTSIDE RECORDS SUMMARY | 2022-02-02 09:30 | XMS_ITS | Encounter Summary ---
:1965 Author Organization [facility] Address [address] [place] [address] Care Team Providers Name Role Phone Dungjosé antonioelbaJose medina Jerrell BOOGIE Primary Care Provider [phone] Reason for Visit Reason Comments LEG PAIN numb MOLE Encounter Details Date Type Department Care Team Description 06/20/2004 Office Visit [facility] Chris Smalls MD [facility]( ACUTE) Practice (Primary Dx) [address] [place] [address] Social History Tobacco Use Types Packs/Day Years Used Date Smoking Tobacco: Never Alcohol Use Standard Drinks/Week Comments Not Asked 0 (1 standard drink = 0.6 oz pure alcoho l) Sex Assigned at Date Recorded Not on file documented as of this encounter Last Filed Vital Signs Vital Sign Reading Time Taken Comments Blood Pressure 100/60 06/20/2004 2:38 PM PRINTER SLOTTER HELPER Pulse 72 06/20/2004 2:38 PM PRINTER SLOTTER HELPER Temperature 36.7 ??C (98.1 ??F) 06/20/2004 2:38 PM PRINTER SLOTTER HELPER Respiratory Rate 20 06/20/2004 2:38 PM PRINTER SLOTTER HELPER Oxygen Saturation - - Inhaled Oxygen Concentration - - Weight - - Height - - Body Mass Index - - documented in this encounter Progress Notes 06/20/2004 2:40 PM PRINTER SLOTTER HELPER This office note has been dictated. Chris [...] she should have this removed. P cc: TER SLOTTER HELPER documented in this encounter Procedure Notes Sofia [...] A cc: Radiology SP Chris Smalls MD TER SLOTTER HELPER documented in this encounter Plan of [...] Sciatica documented in this encounter Care Teams Casino Cashier Relationship Specialty Start Date End Date Jose Colin, PCP - General 12/24/03 09/17/08 [address] [place] [address] documented as of this encounter
--- OUTSIDE RECORDS SUMMARY | 2022-02-02 09:30 | XMS_ITS | Encounter Summary ---
:1965 Author Organization [facility] Address [address] [place] [address] Care Team Providers Name Role Phone Jose Colin DO Primary Care Provider [phone] Encounter Details Date Type Department Care Team Description 12/24/2003 Office Visit [facility] Internal Med Jose Witt DERMATITIS NOS [address] [place], [place] [address] [address] [facility] [phone] [place] [address] (Wo rk) Social History Tobacco [...] Body Mass Index 30.18 09/02/2002 2:00 PM PORT PATROL OFFICER documented in this encounter Progress Notes 12/24/2003 [...] Status reviewed? (see History Social-Substance) -YES NEVER station attendant offered? -NOT APPLICABLE. Aspirin taken daily? -NO BP was taken on the LEFT arm. BP cuff size used? -Adult Regular Health Education given? -NO. Contact phone number [phone] (home) [phone] (work), alternate phone number- Schuyler Thorpe LPN 12/24/2003 4:21 PM Current outpatient prescriptions: OMEPRAZOLE (PRILOSEC) 20MG ORAL CAPS,1 tablet daily,Disp: 30,Rfl: 99 FLUOCINONIDE (LIDEX) 0.05% OINTMENT,thin layer to rash on feet bid for up to three weeks,Disp: qs,Rfl: 0 NAPROXEN (NAPROSYN) 500MG ORAL TABS,one po bid,Disp: 14,Rfl: 0 Erythromycin Jose Colin - 12/24/2003 12:00 AM CDT<TRID:SPI> Doc Type<DT:IM> PT Name<NAME:Disha Choiine> <MRNo:[id number]> Dict ID<[id number]> <29:> Pt Tel #<30:> <28:> <BillNo:> Admit Date<4:12/24/2003> DD<5:> Svc Date<31:12/24/2003> <JobNo:[id number]> <TS:> <CC:> <21:0> Doc Status<RptStat:> Appt Clinic<1003:SP> [...] cause documented in this encounter Care Teams Grader Patrol Relationship Specialty Start Date End Date Jose Colin, DO PCP - General 12/24/03 09/17/08 [address] [place] [address] documented as of this encounter
--- OUTSIDE RECORDS SUMMARY | 2022-02-02 09:30 | XMS_ITS | Encounter Summary ---
:1965 Author [facility] Address [address] [place] [address] Care Team Providers Name Role Phone Jose Stack DO Primary Care Provider [phone] Reason for Visit Reason Onset Date Comments Refill 05/09/2004 Encounter Details Date Type Department Care Team Description 05/09/2004 Refill [facility] Jose Stack, DO Refill 205 [facility] [address] [place] [address] [place], [place] [phone] [address] (Wo rk) Social History Tobacco Use Types Packs/Day Years Used Date Smoking Tobacco: Never Alcohol Use Standard Drinks/Week Comments Not Asked 0 (1 standard drink = 0.6 oz pure alcoho l) Sex Assigned at Date Recorded Not on file documented as of this encounter Nursing Notes 05/09/2004 11:59 PM PSYCHIATRIC MENTAL HEALTH NURSE Approved Prescriptions: Disp Refills ACIPHEX 20MG ORAL TABS 30 99 Sig: Take 1 tablet by mouth once a day Authorizing Provider: JOSE STACK Ordering User: NORBERTO ROBLES >> RUBY Prasad May 09, 2004 5:00 PM Last fill on [id number] for a quantity of 30 documented in this encounter Plan of Treatment Not on filedocumented as of this encounter Visit Diagnoses Diagnosis Brachial neuritis or radiculitis NOS Brachial neuritis or radiculitis nos documented in this encounter Care Teams Portable Feed Mill Operator Relationship Specialty Start Date End Date Jose Stack DO PCP - General 12/24/03 09/17/08 [address] [place] [address] documented as of this encounter
--- OUTSIDE RECORDS SUMMARY | 2022-02-02 09:30 | XMS_ITS | Encounter Summary ---
:1965 Author Organization [facility] Address [address], [place] [address] Care Team Providers Name Role Phone Greyson Gonzalez MD Primary Care Provider Encounter Details Date Type Department Care Team Description 09/16/2002 Telephone [facility] Greyson Romero MD 205 [facility] [address] [place] [address] [place], [place] [phone] (Wo rk) Social History Tobacco Use Types [...] on filedocumented in this encounter Care Teams Locksmith Relationship Specialty Start Date End Date Greyson Gonzalez MD PCP - General 04/15/01 12/23/03 [address] [place], [place] [phone] documented as of this encounter
--- OUTSIDE RECORDS SUMMARY | 2022-02-02 09:30 | XMS_ITS | Encounter Summary ---
:1965 Author Organization [facility] Address [address] [place] [address] Care Team Providers Name Role Phone Unassigned, Provider Primary Care Provider Unavailable Encounter Details Date Type Department Care Team Description 07/26/2004 [facility] Gavin Justiec MD [address] [place] [address] (Wo rk) Social History Tobacco Use Types Packs/Day Years Used Date Smoking Tobacco: Never Smokeless Tobacco: Never Alcohol Use Standard Drinks/Week Comments Yes 0 (1 standard drink = 0.6 oz pure alcoho l) rarely Sex Assigned at Date Recorded Not on file documented as of this encounter Procedure Notes Jerome Garg - 07/26/2004 12:00 AM APARTMENT MAINTENANCE WORKER DATE OF SURGERY: 07/26/2004 STAFF SURGEON: Gavin [...] nerve impingement. Therefore, she is referred to [facility] pain clinic for evaluation for epidural steroid [...] Justice MD Transcribed: 07/26/2004 14:26:15 Doc #: [id number] cc: Jose Colin, , Primary/Referring DO NOT SIGN UNLESS PRESENT FOR PROCEDURE I attest that I was present for and participated in the ma portions of this procedure(s) in compliance with the Health Care Financing Administration Teaching Physician Guidelines. Signed Date Regions Staff Physician 1 Page 2 Patient Name: PADMINI CHOI Visit Date: 07/26/2004 OUTPATIENT OPERATIVE REPORT CONFIDENTIAL MEDICAL RECORD [address] [phone] Page 1 Patient: PADMINI CHOI [id number] Date of : 1965 Visit Date: 07/26/2004 OUTPATIENT OPERATIVE REPORT documented in this encounter Plan of Treatment Not on filedocumented as of this encounter Visit Diagnoses Not on filedocumented in this encounter Care Teams Ammonia Refrigeration Technician Relationship Specialty Start Date End Date Unassigned, Provider PCP - General 09/18/[address] [place] [address] documented as of this encounter
--- OUTSIDE RECORDS SUMMARY | 2022-02-02 09:30 | XMS_ITS | Encounter Summary ---
:1965 Author Organization [facility] Address [address] [place] [address] Care Team Providers Name Role Phone Jose Colin DO Primary Care Provider [phone] Reason for Referral Specialty Diagnoses / Procedures Referred By Contact Refer red To Contact Jose Colin DO [address] [place], [place] [address] Referral ID Status Reason Start Date Expiration Date Visits Requ ested Visits Authorized INE TOOL DESIGNER Reason for Visit Reason Comments BACK PAIN affects both legs Encounter Details Date Type Department Care Team Description 05/25/2005 Office Visit [facility] Internal [place] LOW BACK DEBRA IN Medicine Jose Allan DO (CHRONIC)>6 WEEKS 205 [facility] [address] (Primary Dx) [place] [address] [place], [place] [phone] [address] Social History Tobacco Use Types Packs/Day Years Used Date Smoking Tobacco: Never Alcohol Use Standard Drinks/Week Comments Yes 0 (1 standard drink = 0.6 oz pure alcoho l) rarely Sex Assigned at Date Recorded Not on file documented as of this encounter Last Filed Vital Signs Vital Sign Reading Time Taken Comments Blood Pressure 126/72 05/25/2005 4:17 PM MACHINE TOOL DESIGNER Pulse 72 05/25/2005 4:17 PM MACHINE TOOL DESIGNER Temperature - - Respiratory Rate 16 05/25/2005 4:17 PM MACHINE TOOL DESIGNER Oxygen Saturation - - Inhaled Oxygen Concentration - - Weight 82.1 kg (181 lb) 05/25/2005 4:17 PM MACHINE TOOL DESIGNER Height 160 cm (5' 3) 05/25/2005 4:17 PM MACHINE TOOL DESIGNER Body Mass Index 32.06 05/25/2005 4:17 PM MACHINE TOOL DESIGNER documented in this encounter Patient Instructions Patient Jjmbqrmvcwlr68/15/2005 4:20 PM MACHINE TOOL DESIGNER PLEASE STOP AT CHECK OUT DESK BEFORE LEAVING THE CLINIC Check in at the Pharmacy for your prescription(s) to be filled at the Clinic documented in this encounter Progress Notes 05/25/2005 4:20 PM MACHINE TOOL DESIGNER SUBJECTIVE: Work comp?: no History of: -back [...] y documented in this encounter Care Teams Environmental Engineering Professor Relationship Specialty Start Date End Date Jose Colin DO PCP - General 12/24/03 09/17/[address] [place] [address] documented as of this encounter
--- OUTSIDE RECORDS SUMMARY | 2022-02-02 09:30 | XMS_ITS | Encounter Summary ---
:1965 [facility] Address [address], [place] [address] Care Team Providers Name Role Phone Jose Colin DO Primary Care Provider [phone] Reason for Referral Specialty Diagnoses / Procedures Referred By Contact Refer red To Contact Jose Colin DO [address] [place], [place] [address] Referral ID Status Reason Start Date Expiration Date Visits Requ ested Visits Authorized UNICATIONS DEPARTMENT HEAD Encounter Details Date Type Department Care Team Description 07/18/2004 Notes/Orders [facility] Internal REMBERTO Colin BACK PA IN(ACUTE)<6 Medicine Jose Allan DO WEEKS (Primary Dx) 205 [facility] [address] [place] [address] [place], [place] [phone] Social History Tobacco Use Types Packs/Day [...] Primary documented in this encounter Care Teams Parts Analyst Relationship Specialty Start Date End Date Jose Colin DO PCP - General 12/24/03 09/17/08 [address] [place] [address] documented as of this encounter
--- OUTSIDE RECORDS SUMMARY | 2022-02-02 09:30 | XMS_ITS | Encounter Summary ---
:1965 Author Organization [facility] Address [address], [place] [address] Care Team Providers Name Role Phone Jose Colin DO Primary Care Provider [phone] Encounter Details Date Type Department Care Team Description 04/20/[address] [facility] Internal [facility] icine Jose Colin, 205 [place] [address] [address] [phone] [place] [address] (Wo rk) Social History Tobacco Use Types Packs/Day Years Used Date Smoking Tobacco: Never Alcohol Use Standard Drinks/Week Comments Not Asked 0 (1 standard drink = 0.6 oz pure alcoho l) Sex Assigned at Date Recorded Not on file documented as of this encounter Progress Notes Jose Colin - 04/20/2004 12:00 AM RUNNING RIGGER ING RIGGER documented in this encounter Plan of Treatment Not on filedocumented as of this encounter Visit Diagnoses Not on filedocumented in this encounter Care Teams Wood Shingle Roofer Relationship Specialty Start Date End Date Jose Colin, DO PCP - General 12/24/03 09/17/08 [address] [place] [address] documented as of this encounter
--- OUTSIDE RECORDS SUMMARY | 2022-02-02 09:30 | XMS_ITS | Encounter Summary ---
:1965 Author Organization [facility] Address [address] [place] [address] Care Team Providers Name Role Phone Jose Colin DO Primary Care Provider [phone] Encounter Details Date Type Department Care Team Description 09/21/2004 Orders Only [facility] Radiology Unknown, Physician 640 [facility] [address] [place] [address] [place] [address] [phone] (Wo rk) Social History Tobacco Use Types [...] on filedocumented in this encounter Care Teams User Interface Artist Relationship Specialty Start Date End Date Jose Colin, DO PCP - General 12/24/03 09/17/08 [address] [place] [address] documented as of this encounter
--- OUTSIDE RECORDS SUMMARY | 2022-02-02 09:30 | XMS_ITS | Encounter Summary ---
:1965 Author Organization [facility] Address [address] [place] [address] Care Team Providers Name Role Phone Greyson Gonzalez MD Primary Care Provider Encounter Details Date Type Department Care Team Description 10/14/2003 Office Visit [facility] Internal Greyson Gonzalez HEADACHE ; Julio Angeles MD DERMATOPHYTOSIS OF NAIL; [address] NONSPECIF [place] [address] [place], [place] [phone] Social History Tobacco Use Types Packs/Day Years [...] Body Mass Index 29.26 09/02/2002 2:00 PM ATTRACTION ATTENDANT documented in this encounter Progress Notes 10/14/2003 [...] -NO Preventive Services up to date? -{YES/NO NEEDS:37392} Immunizations up to date? -{YES/NO,NEEDS:77749} Do you ever feel physically threatened or emotionally afraid? -NOT ASKED Tobacco Status reviewed? (see History Social-Substance) -NO home care attendant offered? -NOT APPLICABLE. Aspirin taken daily? -NO BP was taken on the RIGHT arm. BP cuff size used? -Adult Regular Health Education given? -NO. Contact phone number [phone] (home) [phone] (work), alternate phone number- Esmer Berger LPN [...] eruption documented in this encounter Care Teams Creative Services Director Relationship Specialty Start Date End Date Greyson Gonzalez MD PCP - General 04/15/01 12/23/03 [facility] [place] [address] documented as of this encounter
--- OUTSIDE RECORDS SUMMARY | 2022-02-02 09:30 | XMS_ITS | Encounter Summary ---
:1965 Author Organization [facility] Address [address] [place] [address] Care Team Providers Name Role Phone Greyson Gonzalez MD Primary Care Provider Encounter Details Date Type Department Care Team Description 11/18/2003 Office Visit [facility] Optometry Dafne Kyle EYE & VISION EXAMINATION; April, JAZMIN MYOPIA; [address] Jaime ASTIGMATISM NOS; [place], [place] [address] [place] Social History Tobacco Use Types Packs/Day [...] Presbyopia documented in this encounter Care Teams Sheather Relationship Specialty Start Date End Date Greyson Gonzalez MD PCP - General 04/15/01 12/23/03 [address] [place] [address] documented as of this encounter
--- OUTSIDE RECORDS SUMMARY | 2022-02-02 09:30 | XMS_ITS | Encounter Summary ---
:1965 Author Organization [facility] Address [address] [place] [address] Care Team Providers Name Role Phone Jose Colin DO Primary Care Provider [phone] Reason for Visit Reason Comments PRE-OP EXAM Encounter Details Date Type Department Care Team Description 09/22/2004 Office Visit [facility] Internal [place], PREOP EXAM OTHER SPECIFIED (Primary Dx); Medicine Jose Allan DO DISC DIS NEC/NOS-LUMBAR 205 [facility] [address] [place] [address] [place], [place] [phone] [address] Social History Tobacco Use Types Packs/Day [...] Body Mass Index 30.91 09/02/2002 2:00 PM VEHICLE MAINTENANCE SUPERVISOR documented in this encounter Patient Instructions Patient [id number]/14/2005 4:00 PM CDT Stop by Lab for [...] surgery. She is scheduled for surgery at [facility] on 09/27/[address] Espinosa. 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* [employer] Social History Main Topics Tobacco Use: [...] [facility] k/ul RBC 4.35 4.0 - 5.2 [facility] M/ul Hemoglobin 13.8 12.0 - [facility] 16.0 g/dl HCT 41.0 36.0 - [facility] 46.0 % MCV 94.1 80 - 100 [facility] fl MCH 31.8 26 - 34 pg [facility] MCHC 33.8 32 - 36 % [facility] RDW 13.4 11.5 - [facility] 14.5 % Platelets 237 150 - 450 [facility] k/ul PMN/Band 63 43 - 72 % [facility] Lymph 28 17 - 43 % [facility] [place] 8 4 - 12 % [facility] Eos 1 0 - 8 % [facility] Baso 1 0 - 1 % [facility] Neutrophil 5.9 1.8 - 7.7 [facility] Absolute k/ul Lymph Absolute 2.6 1.0 - 4.8 [facility] k/ul [place] Absolute 0.7 0.1 - 0.7 [facility] k/ul Eos Absolute 0.1 0.0 - 0.5 [facility] k/ul Baso Absolute 0.1 0.0 - 0.2 [facility] k/ul Specimen Anatomical Collection Method Collection Time Receive d Time (Source) Location / / Volume Laterality 09/22/2004 4:50 PM 5 4:51 CDT PM CDT Jose Colin DO LAB_1 Performing Organization Address City/State/[facility] Code Phon e Number [facility] [phone] [facility] [address] [address] documented in this encounter Visit Diagnoses Diagnosis Other specified pre-operative examinatio n - Primary Other and unspecified disc disorder of l umbar region ([facility]) Other and unspecified disc disorder of l umbar region documented in this encounter Care Teams Dry Pan Feeder Relationship Specialty Start Date End Date Jose Colin DO PCP - General 12/24/03 09/17/[address] [place] [address] documented as of this encounter
--- OUTSIDE RECORDS SUMMARY | 2022-02-02 09:30 | XMS_ITS | Encounter Summary ---
:1965 Author Organization [facility] Address [address] [place] [address] Care Team Providers Name Role Phone Greyson Gonzalez MD Primary Care Provider Encounter Details Date Type Department Care Team Description 09/12/2002 Office Visit [facility] Internal Greyson Gonzalez, JOINT PAIN-SHLDER (Primary Dx); Medicine PAIN IN LIMB 205 [facility] [address] [place] [address] [place], [place] [phone] Social History Tobacco Use Types Packs/Day Years Used Date Smoking Tobacco: Never Alcohol Use Standard Drinks/Week Comments Not Asked 0 (1 standard drink = 0.6 oz pure alcoho l) Sex Assigned at Date Recorded Not on file documented as of this encounter Last Filed Vital Signs Vital Sign Reading Time Taken Comments Blood Pressure 108/60 09/12/2002 4:20 PM TAP PULLER Pulse 66 09/12/2002 4:20 PM TAP PULLER Temperature - - Respiratory Rate 16 09/12/2002 4:20 PM TAP PULLER Oxygen Saturation - - Inhaled Oxygen Concentration - - Weight 69.9 kg (154 lb) 09/12/2002 4:20 PM TAP PULLER Height - - Body Mass Index 28.17 09/02/2002 2:00 PM TAP PULLER documented in this encounter Progress Notes 09/12/2002 4:20 PM TAP PULLER Megan Choi is here today for f/u R shoulder pain. Had steroid inj. only provided minimal relief for a few days, per pt. Are you having other pain today, that you want to discuss with the provider? -{PAIN YES/NO:12241} Preventive Services up to date? -{YES/NO NEEDS:41493} Immunizations up to date? -{YES/NO,NEEDS:21825} Do you ever feel physically threatened or emotionally afraid? -NO Tobacco Status reviewed? (see History Social-Substance) -YES general lot attendant offered? -NOT APPLICABLE. Aspirin taken daily? -NO BP was taken on the RIGHT arm. Large cuff used? -NO Health Education given? -{YES/NO:46165}. Contact phone number [phone] (home) [phone] (work), alternate phone number . Esmerjose Berger [...] RIGHT SHOULDER AND UPPER EXTREMITY PAIN cc: PULLER documented in this encounter Procedure Notes Claritaclaritaloraine [...] limb documented in this encounter Care Teams Concrete Mixing Truck Driver Relationship Specialty Start Date End Date Greyson Gonzalez MD PCP - General 04/15/01 12/23/03 [address] [place] [address] documented as of this encounter
--- OUTSIDE RECORDS SUMMARY | 2022-02-02 09:30 | XMS_ITS | Encounter Summary ---
:1965 Author Organization [facility] Address [address], [place] [address] Care Team Providers Name Role Phone MoJose medina Primary Care Provider Encounter Details Date Type Department Care Team Description 09/27/2004 - Hospital Encounter RH C6Declan Singhann, 09/28/2004 [address] [place] [address] [phone] [address] [place] [address] Social History Tobacco Use Types [...] have her marisol removed. She will call [phone] to make those appointments. She is instructed [...] CONDITION ON DISCHARGE IS STABLE. [facility] Dictated: 09/28/2004 08:00:35 Staff: Transcribed: 10/03/2004 08:21:09 Shelbi Arauz CNP Doc #: [id number] cc: Jose Colin DO Referring Esmer Espinosa MD, Attending 1 Page 1 Patient Name: PADMINI CHOI DISCHARGE SUMMARY CONFIDENTIAL MEDICAL RECORD [address] [address] Page 1 Patient: PADMINI CHOI Location: [facility] HPN: [id number] Admit Date: 09/27/2004 Date of : 1965 [...] 08:01:33 Staff: Esmer Espinosa MD Doc #: [id number] cc: Jose Colin DO, referring DO NOT SIGN UNLESS PRESENT FOR PROCEDURE I attest that I was present for and participated in the ma portions of this procedure(s) in compliance with the Health Care Financing Administration Teaching Physician Guidelines. Signed Date Regions Staff Physician 1 Page 2 Patient Name: PADMINI CHOI OPERATIVE REPORT CONFIDENTIAL MEDICAL RECORD [address] [address] Page 1 Patient: PADMINI CHOI Location: [facility]DIS HPN: [id number] Admit Date: 09/27/2004 Date of : 1965 [...] 1 VIEW- PORTABLE (09/27/2004 2:35 PM CDT) [facility] gist Method Time Signature Portable PORTABLE [...] on filedocumented in this encounter Care Teams Research Engineer Marine Equipment Relationship Specialty Start Date End Date Jose Colin DO PCP - General 12/24/03 09/17/[address] [place] [address] documented as of this encounter
--- OUTSIDE RECORDS SUMMARY | 2022-02-02 09:30 | XMS_ITS | Encounter Summary ---
:1965 Author Organization [facility] Address [address] [place] [address] Care Team Providers Name Role Phone Jose Colin DO Primary Care Provider [phone] Reason for Visit Reason Onset Date Comments RESULTS, TEST 07/19/2004 Encounter Details Date Type Department Care Team Description 07/19/2004 Telephone [facility] Jose Witt, RESULTS, TEST 205 [place] [address] [address] [phone] [facility] [place] [phone] (Wo rk) Social History Tobacco Use Types Packs/Day Years Used Date Smoking Tobacco: Never Alcohol Use Standard Drinks/Week Comments Not Asked 0 (1 standard drink = 0.6 oz pure alcoho l) Sex Assigned at Date Recorded Not on file documented as of this encounter Nursing Notes 07/19/2004 11:59 PM CONSTRUCTION ENGINEERING MANAGER >> JOSE Newberry Jul 19, 2004 2:33 PM see encounter from 07/18/2004 Jose Colin DO 2:33 PM 07/19/2004 >> BOB Newberry Jul 19, 2004 10:47 AM Re: MRI Results documented in this encounter Plan of Treatment Not on filedocumented as of this encounter Visit Diagnoses Not on filedocumented in this encounter Care Teams Director Of Personnel Relationship Specialty Start Date End Date Jose Colin DO PCP - General 12/24/03 09/17/08 [address] [place] [phone] documented as of this encounter
--- OUTSIDE RECORDS SUMMARY | 2022-02-02 09:30 | XMS_ITS | Encounter Summary ---
:1965 Author Organization [facility] Address [address] [place] [address] Care Team Providers Name Role Phone Jose Colin DO Primary Care Provider [phone] Encounter Details Date Type Department Care Team Description 04/27/2004 Correspondence None Unknown, Physici an [facility] [address] [place], [place] [address] (Wo rk) Social History Tobacco Use Types Packs/Day Years Used Date Smoking Tobacco: Never Alcohol Use Standard Drinks/Week Comments Not Asked 0 (1 standard drink = 0.6 oz pure alcoho l) Sex Assigned at Date Recorded Not on file documented as of this encounter Progress Notes Unknown, Physician - 04/27/2004 12:00 AM WIND ENERGY PROJECT MANAGER documented in this encounter Plan of Treatment Not on filedocumented as of this encounter Visit Diagnoses Not on filedocumented in this encounter Care Teams Service Desk Associate Relationship Specialty Start Date End Date Jose Colin DO PCP - General 12/24/03 09/17/[address] [place] [address] documented as of this encounter
--- OUTSIDE RECORDS SUMMARY | 2022-02-02 09:30 | XMS_ITS | Encounter Summary ---
:1965 Author Organization [facility] Address [address] [place] [address] Care Team Providers Name Role Phone DixieJose Jerrell BOOGIE Primary Care Provider [phone] Reason for Visit Reason Comments NECK PAIN BACK PAIN Encounter Details Date Type Department Care Team Description 04/27/2004 Office Visit [facility] BRACHIAL N EURITIS Practice NOS(CERVICAL 205 [facility] [address] [place]ULOPATHY ([place] [address] [place], [place] Dx) [phone] Social History Tobacco Use Types Packs/Day Years Used Date Smoking Tobacco: Never Alcohol Use Standard Drinks/Week Comments Not Asked 0 (1 standard drink = 0.6 oz pure alcoho l) Sex Assigned at Date Recorded Not on file documented as of this encounter Last Filed Vital Signs Vital Sign Reading Time Taken Comments Blood Pressure 118/64 04/27/2004 1:11 PM CHERRY PITTER Pulse - - Temperature 37.2 ??C (98.9 ??F) 04/27/2004 1:11 PM CHERRY PITTER Respiratory Rate - - Oxygen Saturation - - Inhaled Oxygen Concentration - - Weight - - Height - - Body Mass Index - - documented in this encounter Progress Notes 04/27/2004 1:20 PM CHERRY PITTER This office note has been dictated Que [...] right elbow and wrist. There is strong catering cook strength in the right hand. ASSESSMENT: Cervical [...] problems she should follow up. P cc: RY PITTER documented in this encounter Plan of Treatment Not on filedocumented as of this encounter Visit Diagnoses Diagnosis Brachial neuritis or radiculitis NOS - P rimary Brachial neuritis or radiculitis nos documented in this encounter Care Teams Office Chair Assembler Relationship Specialty Start Date End Date Jose Colin DO PCP - General 12/24/03 09/17/08 [address] [place] [address] documented as of this encounter
--- OUTSIDE RECORDS SUMMARY | 2022-02-02 09:30 | XMS_ITS | Encounter Summary ---
:1965 Author Organization [facility] Address [address] [place] [address] Care Team Providers Name Role Phone Jose Colin DO Primary Care Provider [phone] Reason for Referral Specialty Diagnoses / Procedures Referred By Contact Refer red To Contact Jose Colin DO [address] [place], [place] [phone] Referral ID Status Reason Start Date Expiration Date Visits Requ ested Visits Authorized DREN TEACHER Reason for Visit Reason Comments LEG PAIN f/u left leg Encounter Details Date Type Department Care Team Description 07/12/2004 Office Visit [facility] Internal Dixie SCIATICA(AC GRINDSTONE) Medicine Jose Allan DO (Primary Dx) 205 [facility] [address] [place] [address] [place], [place] [phone] [address] Social History Tobacco Use Types Packs/Day Years Used Date Smoking Tobacco: Never Alcohol Use Standard Drinks/Week Comments Not Asked 0 (1 standard drink = 0.6 oz pure alcoho l) Sex Assigned at Date Recorded Not on file documented as of this encounter Last Filed Vital Signs Vital Sign Reading Time Taken Comments Blood Pressure 100/60 07/12/2004 3:22 PM CHILDREN TEACHER Pulse 60 07/12/2004 3:22 PM CHILDREN TEACHER Temperature 36.9 ??C (98.4 ??F) 07/12/2004 3:22 PM CHILDREN TEACHER Respiratory Rate 16 07/12/2004 3:22 PM CHILDREN TEACHER Oxygen Saturation - - Inhaled Oxygen Concentration - - Weight 78.1 kg (172 lb 3.2 oz) 07/12/2004 3:22 PM CHILDREN TEACHER Height - - Body Mass Index 31.5 09/02/2002 2:00 PM CHILDREN TEACHER documented in this encounter Patient Instructions Patient Qkijrwpcftyx40/01/2005 3:20 PM CHILDREN TEACHER Stop by the Referral [place] to schedule referral appointment. Continue Naprosyn and Vicodin as needed Call 2 to 3 days after MRI for next step documented in this encounter Progress Notes 07/12/2004 3:20 PM CHILDREN TEACHER SUBJECTIVE: Megan Choi is a 39 yr [...] Sciatica documented in this encounter Care Teams Data Analysis Manager Relationship Specialty Start Date End Date Jose Colin DO PCP - General 12/24/03 09/17/08 [address] [place] [address] documented as of this encounter
--- OUTSIDE RECORDS SUMMARY | 2022-02-02 09:30 | XMS_ITS | Encounter Summary ---
:1965 [facility] Address [address] [place] [address] Care Team Providers Name Role Phone Jose Colin DO Primary Care Provider [phone] Reason for Visit Reason Onset Date Comments RESULTS, TEST 07/18/2004 Encounter Details Date Type Department Care Team Description 07/18/2004 Telephone [facility] Internal Med Brigido Burton RN RESULTS, TEST 205 [place] [address] [address] [phone] [place], [place] [address] Social History Tobacco Use Types Packs/Day Years Used Date Smoking Tobacco: Never Alcohol Use Standard Drinks/Week Comments Not Asked 0 (1 standard drink = 0.6 oz pure alcoho l) Sex Assigned at Date Recorded Not on file documented as of this encounter Nursing Notes 07/18/2004 11:59 PM HOT STRIP MILL INSPECTOR >> MICHAEL HALE Mon Jul 18, 2004 [...] on filedocumented in this encounter Care Teams Bricklayer Apprentice Relationship Specialty Start Date End Date Jose Colin DO PCP - General 12/24/03 09/17/08 [address] [place] [address] documented as of this encounter
--- OUTSIDE RECORDS SUMMARY | 2022-02-02 09:31 | XMS_ITS | Encounter Summary ---
:1965 Author Organization [facility] Address [address], [place] [address] Care Team Providers Name Role Phone Greyson Gonzalez MD Primary Care Provider Encounter Details Date Type Department Care Team Description 09/11/2002 Office Visit [facility] Internal Med Greyson Romero MD 205 [facility] [address] [place] [address] [place], [place] [phone] (Wo rk) Social History Tobacco Use Types Packs/Day Years Used Date Smoking Tobacco: Never Alcohol Use Standard Drinks/Week Comments Not Asked 0 (1 standard drink = 0.6 oz pure alcoho l) Sex Assigned at Date Recorded Not on file documented as of this encounter Progress Notes Greyson Gonzalez - 09/11/2002 12:00 AM CHIP MIXER MIXER documented in this encounter Plan of Treatment Not on filedocumented as of this encounter Visit Diagnoses Not on filedocumented in this encounter Care Teams Office Machine Service Supervisor Relationship Specialty Start Date End Date Greyson Gonzalez MD PCP - General 04/15/01 12/23/03 [address] [place], [place] [address] documented as of this encounter
--- OUTSIDE RECORDS SUMMARY | 2022-02-02 09:31 | XMS_ITS | Encounter Summary ---
:1965 Author Organization [facility] Address [address] [place] [address] Care Team Providers Name Role Phone Greyson Gonzalez MD Primary Care Provider Encounter Details Date Type Department Care Team Description 2002 Office Visit [facility] Lebron Mcgrath MD [facility] R [facility] [...] skin documented in this encounter Care Teams Chemist Assistant Relationship Specialty Start Date End Date Greyson Gonzalez MD PCP - General 04/15/01 12/23/03 [address] [place] [address] documented as of this encounter
--- OUTSIDE RECORDS SUMMARY | 2022-02-02 09:31 | XMS_ITS | Encounter Summary ---
:1965 Author Organization [facility] Address [address], [place] [address] Care Team Providers Name Role Phone Greyson Gonzalez MD Primary Care Provider Encounter Details Date Type Department Care Team Description 01/03/2002 Office Visit [facility] Juanito Panda, FAITH MAHMOOD CYST; Medicine ESOPHAGEAL REFLUX 205 [place] [address] Social History Tobacco Use Types [...] reflux documented in this encounter Care Teams Public Records Researcher Relationship Specialty Start Date End Date Greyson Gonzalez MD PCP - General 04/15/01 12/23/03 [address] [place] [address] documented as of this encounter
--- OUTSIDE RECORDS SUMMARY | 2022-02-02 09:31 | XMS_ITS | Encounter Summary ---
:1965 Author Organization [facility] Address [address] [place] [address] Care Team Providers Name Role Phone Greyson Gonzalez MD Primary Care Provider Encounter Details Date Type Department Care Team Description 04/04/2002 Office Visit [facility] Lebron Mcgrath MD VERITO SSNG CHANGE SUTURE/STAPLE [...] sutures documented in this encounter Care Teams Supervisor Offset Plate Preparation Relationship Specialty Start Date End Date Greyson Gonzalez MD PCP - General 04/15/01 12/23/03 [address] [place] [address] documented as of this encounter
--- OUTSIDE RECORDS SUMMARY | 2022-02-02 09:31 | XMS_ITS | Encounter Summary ---
:1965 [facility] Address [address], [place] [address] Care Team Providers Name Role Phone Greyson Gonzalez MD Primary Care Provider Encounter Details Date Type Department Care Team Description 12/27/2001 Orders Only [facility] Internal Med Juanito Chandra MD 205 [place] [address] Social History Tobacco Use Types Packs/Day Years Used Date Smoking Tobacco: Never Assessed Sex Assigned at Date Recorded Not on file documented as of this encounter Plan of Treatment Not on filedocumented as of this encounter Visit Diagnoses Not on filedocumented in this encounter Care Teams Printing Specialist Relationship Specialty Start Date End Date Greyson Gonzalez MD PCP - General 04/15/01 12/23/03 [address] [place] [address] documented as of this encounter
--- OUTSIDE RECORDS SUMMARY | 2022-02-02 09:31 | XMS_ITS | Encounter Summary ---
:1965 Author Organization [facility] Address [address] [place] [address] Care Team Providers Name Role Phone Greyson Gonzalez MD Primary Care Provider Encounter Details Date Type Department Care Team Description 08/26/2002 Correspondence None Unknown, Physici an STEVEN [address] [place] [address] (Wo rk) Social History Tobacco Use Types Packs/Day Years Used Date Smoking Tobacco: Never Alcohol Use Standard Drinks/Week Comments Not Asked 0 (1 standard drink = 0.6 oz pure alcoho l) Sex Assigned at Date Recorded Not on file documented as of this encounter Progress Notes Unknown, Physician - 08/26/2002 12:00 AM RIDE ASSEMBLY SUPERVISOR documented in this encounter Plan of Treatment Not on filedocumented as of this encounter Visit Diagnoses Not on filedocumented in this encounter Care Teams Relocation Commissioner Relationship Specialty Start Date End Date Greyson Gonzalez MD PCP - General 04/15/01 12/23/03 [address] [place], [place] [address] documented as of this encounter
--- OUTSIDE RECORDS SUMMARY | 2022-02-02 09:31 | XMS_ITS | Encounter Summary ---
:1965 Author Organization [facility] Address [address] [place] [address] Care Team Providers Name Role Phone Greyson Gonzalez MD Primary Care Provider Encounter Details Date Type Department Care Team Description 08/22/2002 Office Visit [facility] Internal Greyson Gonzalez, JOINT PAIN-SHLDER; Medicine PAIN IN LIMB 205 [facility] [address] [place] [address] [place], [place] [phone] (Wo rk) Social History Tobacco Use Types Packs/Day Years Used Date Smoking Tobacco: Never Assessed Sex Assigned at Date Recorded Not on file documented as of this encounter Last Filed Vital Signs Vital Sign Reading Time Taken Comments Blood Pressure 108/56 08/22/2002 4:20 PM LEG BREAKER Pulse 72 08/22/2002 4:20 PM LEG BREAKER Temperature - - Respiratory Rate 12 08/22/2002 4:20 PM LEG BREAKER Oxygen Saturation - - Inhaled Oxygen Concentration - - Weight 71.2 kg (157 lb) 08/22/2002 4:20 PM LEG BREAKER Height - - Body Mass Index - - documented in this encounter Progress Notes 08/22/2002 4:20 PM LEG BREAKER Megan Choi is here today for R shoulder pain. Are you having other pain today, that you want to discuss with the provider? -NO Preventive Services up to date? -YES Immunizations up to date? -YES Do you ever feel physically threatened or emotionally afraid? -NO Tobacco Status reviewed? (see History Social-Substance) -YES blower room attendant offered? -NOT APPLICABLE. Aspirin taken daily? -NO BP was taken on the RIGHT arm. Large cuff used? -NO Health Education given? -NO. Current prescriptions: MULTIPLE VITAMIN TABS OR, 1 qd, D: 30, R: 0 ACIPHEX 20MG ORAL TABS, TAKE 1 TABLET by mouthDAILY, D: 30, R: 0 Erythromycin Contact phone number [phone] (home) [phone] (work), alternate phone number . 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 OBJECTIVE: Blood pressure 108/56. Pulse 72. Respiratory [...] Right shoulder and upper extremity pain. cc: BREAKER Greyson Gonzalez - 08/22/2002 12:00 AM LEG BREAKER BREAKER documented in this encounter Plan of Treatment Not on filedocumented as of this encounter Visit Diagnoses Diagnosis Pain in joint, shoulder region Pain in limb documented in this encounter Care Teams Biochemistry Technologist Relationship Specialty Start Date End Date Greyson Gonzalez MD PCP - General 04/15/01 12/23/03 [facility] [place] [address] documented as of this encounter
--- OUTSIDE RECORDS SUMMARY | 2022-02-02 09:31 | XMS_ITS | Encounter Summary ---
:1965 Author Organization [facility] Address [address], [place] [address] Care Team Providers Name Role Phone Greyson Gonzalez MD Primary Care Provider Encounter Details Date Type Department Care Team Description 07/26/2001 [facility] Internal Med Juanito Chandra MD DERMATITIS NOS 205 [place] [address] Social History Tobacco Use Types [...] b.i.d. or t.i.d. IN SUMMARY: Dermatitis. cc: APPLIANCES MECHANIC documented in this encounter Plan of Treatment Not on filedocumented as of this encounter Visit Diagnoses Diagnosis Contact dermatitis and other eczema, due to unspecified cause documented in this encounter Care Teams Director Medicaid Relationship Specialty Start Date End Date Greyson Gonzalez MD PCP - General 04/15/01 12/23/03 [address] [place] [address] documented as of this encounter
--- OUTSIDE RECORDS SUMMARY | 2022-02-02 09:31 | XMS_ITS | Encounter Summary ---
:1965 Author Organization [facility] Address [address] [place] [address] Care Team Providers Name Role Phone Greyson Gonzalez MD Primary Care Provider Encounter Details Date Type Department Care Team Description 08/26/2002 Office Visit [facility] Internal Med Jose Witt, BURSITIS NEC [address] [place] [address] 883 [facility] [phone] [place] [address] (Wo rk) Social History Tobacco Use Types Packs/Day Years Used Date Smoking Tobacco: Never Alcohol Use Standard Drinks/Week Comments Not Asked 0 (1 standard drink = 0.6 oz pure alcoho l) Sex Assigned at Date Recorded Not on file documented as of this encounter Last Filed Vital Signs Vital Sign Reading Time Taken Comments Blood Pressure 110/56 08/26/2002 4:20 PM DISH CARRIER Pulse 68 08/26/2002 4:20 PM DISH CARRIER Temperature 36.2 ??C (97.2 ??F) 08/26/2002 4:20 PM DISH CARRIER Respiratory Rate 20 08/26/2002 4:20 PM DISH CARRIER Oxygen Saturation - - Inhaled Oxygen Concentration - - Weight - - Height - - Body Mass Index - - documented in this encounter Progress Notes 08/26/2002 4:20 PM DISH CARRIER Megan Choi is here today for Injection R shoulder Are you having other pain today, that you want to discuss with the provider? -YES Preventive Services up to date? -{YES/NO NEEDS:92067} Immunizations up to date? -{YES/NO,NEEDS:84685} Do you ever feel physically threatened or emotionally afraid? -NO Tobacco Status reviewed? (see History Social-Substance) -YES hospice entrance attendant offered? -NOT APPLICABLE. Aspirin taken daily? -NO BP was taken on the LEFT arm. Large cuff used? -NO Health Education given? -NO. Contact phone number [phone] (home) [phone] (work), alternate phone number . Schuyler ThorpeMONSE [...] IN SUMMARY: BURSITIS OF THE SHOULDER cc: CARRIER documented in this encounter Plan of Treatment Not on filedocumented as of this encounter Visit Diagnoses Diagnosis Other bursitis disorders documented in this encounter Care Teams Logging Tractor Operator Swamp Relationship Specialty Start Date End Date Greyson Gonzalez MD PCP - General 04/15/01 12/23/03 [address] [place] [address] documented as of this encounter
--- OUTSIDE RECORDS SUMMARY | 2022-02-02 09:31 | XMS_ITS | Encounter Summary ---
:1965 [facility] Address [address], [place] [address] Care Team Providers Name Role Phone Greyson Gonzalez MD Primary Care Provider Encounter Details Date Type Department Care Team Description 07/26/2001 Orders Only [facility] Internal Med Juanito Chandra MD 205 [place] [address] Social History Tobacco Use Types Packs/Day Years Used Date Smoking Tobacco: Never Assessed Sex Assigned at Date Recorded Not on file documented as of this encounter Plan of Treatment Not on filedocumented as of this encounter Visit Diagnoses Not on filedocumented in this encounter Care Teams Museum Director Relationship Specialty Start Date End Date Greyson Gonzalez MD PCP - General 04/15/01 12/23/03 [address] [place] [address] documented as of this encounter
--- OUTSIDE RECORDS SUMMARY | 2022-02-02 09:31 | XMS_ITS | Encounter Summary ---
:1965 Author Organization [facility] Address [address] [place] [address] Care Team Providers Name Role Phone Greyson Gonzalez MD Primary Care Provider Encounter Details Date Type Department Care Team Description 10/14/2001 Orders Only Yeyo Colin, DO [address] [place] [address] (Wo rk) Social History Tobacco [...] City/State/ZIP Code Phon e Number [facility] [phone] [phone] (ABNORMAL) UA MICRO IF (10/14/2001 1:44 PM CDT) athologist Signature Appr Yellow [facility] Appr Clear [facility] Sp Gr 1.010 1.005 - [facility] 1.030 Leuk Sml (A) [facility] Nitr Neg [facility] pH 7.0 4.5 - 8.0 [facility] Prot Neg mg/dl [facility] Gluc Neg mg/dl [facility] Ket Neg mg/dl [facility] Urob 0.2 0.2 - 1.0 [facility] EU/dl Bili Neg [facility] Blood Tr (A) [facility] Specimen Anatomical Collection Method Collection Time Receive d Time (Source) Location / / Volume Laterality 10/14/2001 1:44 PM 2 1:45 CDT PM CDT Jose Colin DO LAB_1 Performing Organization Address City/State/[facility] Code Phon e Number [facility] [phone] [address] documented in this encounter Visit Diagnoses Not on filedocumented in this encounter Care Teams Oil And Gas Exploration Technician Relationship Specialty Start Date End Date Greyson Gonzalez MD PCP - General 04/15/01 12/23/03 [address] [place] [address] documented as of this encounter
--- OUTSIDE RECORDS SUMMARY | 2022-02-02 09:31 | XMS_ITS | Encounter Summary ---
:1965 Author Organization [facility] Address [address] [place] [address] Care Team Providers Name Role Phone Greyson Gonzalez MD Primary Care Provider Reason for Visit Reason Comments DIZZINESS Encounter Details Date Type Department Care Team Description 03/05/2002 Telephone Careline Dereck Dacosta RN DIZZINESS [address] [place], [place] [address] [facility] [phone] [place] [address] Social History Tobacco Use Types Packs/Day Years [...] on filedocumented in this encounter Care Teams Clip Loading Machine Feeder Relationship Specialty Start Date End Date Greyson Gonzalez MD PCP - General 04/15/01 12/23/03 [address] [place] [address] documented as of this encounter
--- OUTSIDE RECORDS SUMMARY | 2022-02-02 09:31 | XMS_ITS | Encounter Summary ---
:1965 Author Organization [facility] Address [address], [place] [address] Care Team Providers Name Role Phone Greyson Gonzalez MD Primary Care Provider Encounter Details Date Type Department Care Team Description 09/08/2002 Orders Only [facility] Blank Perez APRN, DEVELOPMENT SPECIALIST 205 [facility] [address] [place] [address] [place] [address] (Wo rk) Social History Tobacco [...] AM Res ults for this AND HDL WEB PRODUCTION MANAGER procedure are i n the results section. GLUCOSE - FASTING > Routine 09/08/2002 7:31 AM Re sults for this 8 HRS FASTING WEB PRODUCTION MANAGER procedure are in the results section. documented in this encounter Results GLUCOSE - FASTING > 8 HRS FASTING (09/08/2002 7:31 AM WEB PRODUCTION MANAGER) P athologist Signature Glucose 94 70 - 110 [facility] mg/dl Hours Fasting 12 hours [facility] Specimen Anatomical Collection Method Collection Time Receive d Time (Source) Location / / Volume Laterality 09/08/2002 7:31 AM 3 7:32 WEB PRODUCTION MANAGER AM WEB PRODUCTION MANAGER Blank Perez APRN, DEVELOPMENT SPECIALIST LAB_1 Performing Organization Address City/State/ZIP Code Phon e Number [facility] [phone] [address] (ABNORMAL) CHOLESTEROL, TOTAL AND HDL (09/08/2002 7:31 AM WEB PRODUCTION MANAGER) athologist Signature Cholesterol 151 <200 mg/dl [facility] HDL 33 (L) >35 mg/dl [facility] Specimen Anatomical Collection Method Collection Time Receive d Time (Source) Location / / Volume Laterality 09/08/2002 7:31 AM 3 7:32 WEB PRODUCTION MANAGER AM WEB PRODUCTION MANAGER Blank Perez SALES ENGAGEMENT EXECUTIVE, DEVELOPMENT SPECIALIST LAB_1 Performing Organization Address City/State/ZIP Code Phon e Number [facility] [employer] [phone] [address] documented in this encounter Visit Diagnoses Not on filedocumented in this encounter Care Teams Reamer Hand Relationship Specialty Start Date End Date Greyson Gonzalez MD PCP - General 04/15/01 12/23/03 [address] [place] [address] documented as of this encounter
--- OUTSIDE RECORDS SUMMARY | 2022-02-02 09:31 | XMS_ITS | Encounter Summary ---
:1965 [facility] Address [address], [place] [address] Care Team Providers Name Role Phone Greyson Gonzalez MD Primary Care Provider Encounter Details Date Type Department Care Team Description 09/02/2002 Orders Only [facility] Blank Giraldo, SLIP MIXER, LOCAL [place] TRUCK DRIVER 205 [facility] [address] [place] [address] [place] [address] (Wo rk) Social History Tobacco [...] 09/02/2002 12:00 AM Res ults for this PRINT GRAPHIC DESIGNER procedure are i n the results section. documented in this encounter Results PAP TEST, ROUTINE (09/02/2002 12:00 AM PRINT GRAPHIC DESIGNER) Component Value Ref Test Analysis Performed At [facility] Method Time Signature Cytology, Pap (NOTE) REGIONS Quarry Worker Cytology Report Patient Name: PADMINI CHOI Taken: 09/02/02 Received: 09/03/02 Reported: 09/10/02 Physician(s): BLANK GIRALDO ([id number]) ? [id number] ? Source of Specimen Liquid routine Pap, [...] / Volume Laterality 09/02/2002 09/03/2002 2:27 PM PRINT GRAPHIC DESIGNER Blank Giraldo APRN, LOCAL [place] TRUCK DRIVER LAB_1 Performing Organization Address City/State/ZIP Code Phon e Number [address] [address] [place], [place] [phone] documented in this encounter Visit Diagnoses Not on filedocumented in this encounter Care Teams Truck Engine Assembler Relationship Specialty Start Date End Date Greyson Gonzalez MD PCP - General 04/15/01 12/23/03 [address] [place] [address] documented as of this encounter
--- OUTSIDE RECORDS SUMMARY | 2022-02-02 09:31 | XMS_ITS | Encounter Summary ---
:1965 [facility] Address [address], [place] [address] Care Team Providers Name Role Phone Greyson Gonzalez MD Primary Care Provider Encounter Details Date Type Department Care Team Description 10/14/2001 Office Visit [facility] Internal REMBERTO Colin BACK PA IN(ACUTE)<6 WEEKS; Medicine Jose Allan DO LOW BACK PAIN (CHRONIC)>6 WEEKS; 205 [facility] [address] [place] [address] [place] [phone] [address] Social History Tobacco Use Types Packs/Day [...] 8 days ago she bent over to special agent group insurance a heavy load of laundry and when [...] ied documented in this encounter Care Teams Dimension Warehouse Supervisor Relationship Specialty Start Date End Date Greyson Gonzalez MD PCP - General 04/15/01 12/23/03 [address] [place] [address] documented as of this encounter
--- OUTSIDE RECORDS SUMMARY | 2022-02-02 09:31 | XMS_ITS | Encounter Summary ---
:1965 Author [facility] Address [address], [place] [address] Care Team Providers Name Role Phone Greyson Gonzalez MD Primary Care Provider Encounter Details Date Type Department Care Team Description 2002 Orders Only [facility] Lebron Booth MD AN[facility] IGN CARLO SKIN ARM Social History Tobacco Use Types Packs/Day Years Used Date Smoking Tobacco: Never Assessed Sex Assigned at Date Recorded Not on file documented as of this encounter Plan of Treatment Not on filedocumented as of this encounter Procedures Procedure Name Priority Date/Time Associated Diagnosis Comme [facility] DERMATOPATHOLOGY Routine 2002 Benign Carlo Skin Arm Resu lts for this procedure are in the resu lts section. documented in this encounter Results DERMATOPATHOLOGY (2002) Component Value Ref Test Analysis Performed At [facility] Method Time [facility] Dermatopathology [facility] DERMATOPATHOLOGY Patient: MEGAN CHOI ?? : 1965 Med Rec: [id number] Date of BX: 2002 Date Acc: 03/28/2002 [...] ? ARM, UPPER, RIGHT : DERMATOFIBROMA SNOMED-T: ??T-08851 SNOMED-M: ??M-45137 ICD9-CM: ??216.6 Eddie Ballesteros M.D./Pathologist Specimen (Source) Anatomical Location Collection Method / Collectio n Time Received Time / Laterality Volume 2002 Lebron Booth MD PAPS Performing Organization Address City/State/[facility] Phon e Number [facility] DERMATOPATHOLOGY [address] [place] [address] documented in this encounter Visit Diagnoses Diagnosis Benign neoplasm of skin of upper limb, i ncluding shoulder documented in this encounter Care Teams Windows Administrator Relationship Specialty Start Date End Date Greyson Gonzalez MD PCP - General 04/15/01 12/23/03 [address] [place] [address] documented as of this encounter
--- OUTSIDE RECORDS SUMMARY | 2022-02-02 09:31 | XMS_ITS | Encounter Summary ---
:1965 [facility] Address [address] [place] [address] Care Team Providers Name Role Phone Greyson Gonzalez MD Primary Care Provider Encounter Details Date Type Department Care Team Description 09/08/2002 Orders Only [facility] Blank Perez APRN, LAV CREWMAN 205 [facility] [address] [place] [address] [place] [address] (Wo rk) Social History Tobacco [...] PM Re sults for this 12 HOUR APPRENTICE FUNERAL DIRECTOR procedure are i n the results section. documented in this encounter Results (ABNORMAL) CHOLESTEROL LIPID PANEL FAST >12HR FAST (09/08/2002 4:51 PM APPRENTICE FUNERAL DIRECTOR) P athologist Signature Cholesterol 152 <200 mg/dl [facility] Triglyceride 82 <200 mg/dl [facility] HDL 34 (L) >35 mg/dl [facility] LDL, Calc. 102 mg/dl [facility] Hours Fasting 12 hours [facility] Specimen Anatomical Collection Method Collection Time Receive d Time (Source) Location / / Volume Laterality 09/08/2002 4:51 PM 3 4:51 APPRENTICE FUNERAL DIRECTOR PM APPRENTICE FUNERAL DIRECTOR Blank Perez APRN, LAV CREWMAN LAB_1 Performing Organization Address City/State/ZIP Code Phon e Number [facility] [phone] [facility] [address] [phone] documented in this encounter Visit Diagnoses Not on filedocumented in this encounter Care Teams Transcribing Operators Supervisor Relationship Specialty Start Date End Date Greyson Gonzalez MD PCP - General 04/15/01 12/23/03 [address] [place], [place] [phone] documented as of this encounter
--- OUTSIDE RECORDS SUMMARY | 2022-02-02 09:31 | XMS_ITS | Encounter Summary ---
:1965 Author Organization [facility] Address [address] [place] [address] Care Team Providers Name Role Phone Greyson Gonzalez MD Primary Care Provider Encounter Details Date Type Department Care Team Description 09/02/2002 Office Visit [facility] Obstetrics Blank Perez, GYNECOLO GIC EXAMINATION; and Gynecology LAW OFFICE MANAGER, BACK ROLL LATHE OPERATOR SCREENING MAL NEOP-CERVIX; [address] [facility] PREVENTIVE [place] [address] [place], [place] [phone] [address] Social History Tobacco Use Types Packs/Day Years Used Date Smoking Tobacco: Never Alcohol Use Standard Drinks/Week Comments Not Asked 0 (1 standard drink = 0.6 oz pure alcoho l) Sex Assigned at Date Recorded Not on file documented as of this encounter Last Filed Vital Signs Vital Sign Reading Time Taken Comments Blood Pressure 102/56 09/02/2002 2:00 PM RESAWYER Pulse 64 09/02/2002 2:00 PM RESAWYER Temperature - - Respiratory Rate - - Oxygen Saturation - - Inhaled Oxygen Concentration - - Weight 69.8 kg (153 lb 12.8 oz) 09/02/2002 2:00 PM RESAWYER Height 157.5 cm (5' 2) 09/02/2002 2:00 PM RESAWYER Body Mass Index 28.13 09/02/2002 2:00 PM RESAWYER documented in this encounter Progress Notes 09/02/2002 2:00 PM RESAWYER Megan Choi is here today for pe [...] Final Value: See Separate Report Performed at [facility] No results found for this basename: CHOLESTEROL CHOLESTEROL-L (mg/dl) Date Value Low High Status 03/28/2001 225* <200 Final Mammogram done? -yes awile ago. Bone Density study done? -No testing done. Do you ever feel physically threatened or emotionally afraid -NO Tobacco Status reviewed? (see History Social-Substance) -NO animal care attendant offered? -DECLINED. Aspirin taken daily? - NO Health Education given? -NO. Patient's phone [phone] (home) [phone] (work) Thania YañezMONSE 09/02/2002 2:24 PM Current [...] p.r.n. IN SUMMARY: Routine health maintenance cc: WYER documented in this encounter Plan of Treatment Not on filedocumented as of this encounter Visit Diagnoses Diagnosis Gynecological examination Screening for malignant neoplasm of the cervix Routine general medical [facility] at [facility] Routine general medical examination at [facility] documented in this encounter Care Teams Salvage Machine Operator Relationship Specialty Start Date End Date Greyson Gonzalez MD PCP - General 04/15/01 12/23/03 [address] [place] [address] documented as of this encounter
--- OUTSIDE RECORDS SUMMARY | 2022-02-02 09:31 | XMS_ITS | Encounter Summary ---
:1965 [facility] Address [address], [place] [address] Care Team Providers Name Role Phone Greyson Gonzalez MD Primary Care Provider Encounter Details Date Type Department Care Team Description 01/13/2002 Orders Only [facility] Internal Med Juanito Chandra MD [address] [place] [address] Social History Tobacco Use Types Packs/Day Years Used Date Smoking Tobacco: Never Assessed Sex Assigned at Date Recorded Not on file documented as of this encounter Plan of Treatment Not on filedocumented as of this encounter Visit Diagnoses Not on filedocumented in this encounter Care Teams Cna Instructor Relationship Specialty Start Date End Date Greyson Gonzalez MD PCP - General 04/15/01 12/23/03 [address] [place], [place] [phone] documented as of this encounter
--- OUTSIDE RECORDS SUMMARY | 2022-02-02 09:31 | XMS_ITS | Encounter Summary ---
:1965 Author Organization [facility] Address [address] [place] [address] Care Team Providers Name Role Phone Greyson Gonzalez MD Primary Care Provider Encounter Details Date Type Department Care Team Description 09/11/2002 Correspondence None Unknown, Physici an [facility] RESULTS [address] [place], [place] [address] (Wo rk) Social History Tobacco Use Types Packs/Day Years Used Date Smoking Tobacco: Never Alcohol Use Standard Drinks/Week Comments Not Asked 0 (1 standard drink = 0.6 oz pure alcoho l) Sex Assigned at Date Recorded Not on file documented as of this encounter Progress Notes Unknown, Physician - 09/11/2002 12:00 AM SPOOL SANDER documented in this encounter Plan of Treatment Not on filedocumented as of this encounter Visit Diagnoses Not on filedocumented in this encounter Care Teams Rv Mechanic Relationship Specialty Start Date End Date Greyson Gonzalez MD PCP - General 04/15/01 12/23/03 [address] [place], [place] [address] documented as of this encounter
--- OUTSIDE RECORDS SUMMARY | 2022-02-02 09:31 | XMS_ITS | Encounter Summary ---
:1965 Author Organization [facility] Address [address] [place] [address] Care Team Providers Name Role Phone Greyson Gonzalez MD Primary Care Provider Encounter Details Date Type Department Care Team Description 01/24/2002 Office Visit [facility] Internal OfSchuyler moore, ACUTE Medicine PHARYNGITIS(SORE [address] [place]) [place] [address] [place], [place] [phone] [address] (Wo rk) Social History Tobacco Use [...] pharyngitis. PLAN: 1. Discussed with patient. Advised [id number] cough syrup and Tylenol. 2. Prescription for [...] pharyngitis documented in this encounter Care Teams Can Cutter Relationship Specialty Start Date End Date Greyson Gonzalez MD PCP - General 04/15/01 12/23/03 [address] [place] [address] documented as of this encounter
--- OUTSIDE RECORDS SUMMARY | 2022-02-02 09:31 | XMS_ITS | Encounter Summary ---
:1965 Author Organization [facility] Address [address], [place] [address] Care Team Providers Name Role Phone Greyson Gonzalez MD Primary Care Provider Encounter Details Date Type Department Care Team Description 08/13/2001 Office Visit [facility] Wilda Louise AB N GLUCOSE TOLERAN TEST; Clinic RDN, KIESHA PURE HYPERCHOLESTEROLEM; [address] [place] [address] [place], [place] [phone] (Wo rk) Social History Tobacco Use Types [...] nicer to get out. 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 OBJECTIVE: A 36-year-old woman, referred to the [...] glucose intolerance. cc: Wilda Louise RD, KIESHA R SERVICES SPECIALIST documented in this encounter Plan of Treatment Not on filedocumented as of this encounter Visit Diagnoses Diagnosis ABN GLUCOSE TOLERAN TEST Pure hypercholesterolemia Obesity, unspecified (HRC) Obesity, unspecified documented in this encounter Care Teams Furnace Operator Oil Or Gas Relationship Specialty Start Date End Date Greyson Gonzalez MD PCP - General 04/15/01 12/23/03 [address] [place] [address] documented as of this encounter
--- OUTSIDE RECORDS SUMMARY | 2022-02-02 09:31 | XMS_ITS | Encounter Summary ---
:1965 Author Organization [facility] Address [address], [place] [address] Care Team Providers Name Role Phone Greyson Gonzalez MD Primary Care Provider Encounter Details Date Type Department Care Team Description 01/24/2002 Orders Only Schuyler Ortiz MD [address] [place] [address] (Wo rk) Social History Tobacco [...] STREP SCREEN (WAITI (01/24/2002 2:38 PM CDT) [facility] Method Time Signature Patient Home [id number] [employer] Phone # Patient Work None [facility] Phone # Grp A Rapid Negative [facility] Screen Grp A Culture Negative [facility] Final Specimen Anatomical Collection Method Collection Time Receive d Time (Source) Location / / Volume Laterality 01/24/2002 2:38 PM 2 2:39 CDT PM CDT Schuyler Ortiz MD LAB_1 Performing Organization Address City/State/ZIP Code Phon e Number [facility] [phone] [facility] [address] [address] documented in this encounter Visit Diagnoses Not on filedocumented in this encounter Care Teams Clerk Telegraph Service Relationship Specialty Start Date End Date Greyson Gonzalez MD PCP - General 04/15/01 12/23/03 [address] [place] [address] documented as of this encounter
--- OUTSIDE RECORDS SUMMARY | 2022-02-02 09:31 | XMS_ITS | Encounter Summary ---
:1965 [facility] Address [address] [place] [address] Care Team Providers Name Role Phone Greyson Gonzalez MD Primary Care Provider Encounter Details Date Type Department Care Team Description 11/21/2001 Office Visit [facility] Optometry Ailyn Silva ey R MYOPIA [address] [place], [place] [address] (Wo rk) Social History Tobacco Use Types Packs/Day Years Used Date Smoking Tobacco: Never Assessed Sex Assigned at Date Recorded Not on file documented as of this encounter Plan of Treatment Not on filedocumented as of this encounter Visit Diagnoses Diagnosis Myopia documented in this encounter Care Teams Laboratory Mechanical Technician Relationship Specialty Start Date End Date Greyson Gonzalez MD PCP - General 04/15/01 12/23/03 [address] [place], [place] [address] documented as of this encounter
--- OUTSIDE RECORDS SUMMARY | 2022-02-02 09:32 | XMS_ITS | Encounter Summary ---
:1965 Author Organization [facility] Address [address] [address] Care Team Providers Name Role Phone Greyson Gonzalez MD Primary Care Provider Encounter Details Date Type Department Care Team Description 05/20/[address] [facility] Obstetrics Blank Perez, GENERAL SYMPTOMS NEC; and Gynecology SENIOR HEALTH EDUCATOR, PARENT COACH [facility], [address] [address] [place], [place] [phone] [address] Social History Tobacco Use Types Packs/Day [...] ULTRASOUND AND OCPS, IMPAIRED GLUCOSE TOLERANCE. cc: IDENT AND CHIEF OPERATING OFFICER documented in this encounter Plan of Treatment Not on filedocumented as of this encounter Visit Diagnoses Diagnosis General symptoms NEC Other general symptoms Counseling NOS(V65.40) Counseling NOS documented in this encounter Care Teams Veneer Clipper Helper Relationship Specialty Start Date End Date Greyson Gonzalez MD PCP - General 04/15/01 12/23/03 [address] [place] [address] documented as of this encounter
--- OUTSIDE RECORDS SUMMARY | 2022-02-02 09:32 | XMS_ITS | Encounter Summary ---
:1965 Author Organization [facility] Address [address] [place] [address] Care Team Providers Name Role Phone Juanito Panda MD Primary Care Provider Unavailable Encounter Details Date Type Department Care Team Description 03/28/2001 Orders Only [facility] Obstetrics and Anayeli Perez, ENDOSCOPY TECH, PHYSICIAN SCRIBE Gynecology [address] [address] [place], [place] [address] [phone] Social History Tobacco Use Types Packs/Day Years [...] cc: AUDREY Moffett Radiology SP Blank Perez ENDOSCOPY TECH, PHYSICIAN SCRIBE PAPS documented in this encounter Visit Diagnoses Not on filedocumented in this encounter Care Teams Civil Preparedness Coordinator Relationship Specialty Start Date End Date Juanito Panda MD PCP - General 07/30/00 1 documented as of this encounter
--- OUTSIDE RECORDS SUMMARY | 2022-02-02 09:32 | XMS_ITS | Encounter Summary ---
:1965 Author Organization [facility] Address [address] [place] [address] Care Team Providers Name Role Phone Unassigned, Provider Primary Care Provider Unavailable Encounter Details Date Type Department Care Team Description 09/11/2000 Orders Only Juanito Young MD [address] [place], [place] [phone] Social History Tobacco Use [...] Results EKG TRACING (09/11/2000 4:50 PM CDT) [facility] Method Time Signature EKG See Separate [facility] Report Specimen Anatomical Collection Method Collection Time Receive d Time (Source) Location / / Volume Laterality 09/11/2000 4:50 PM 1 4:53 CDT PM CDT Juanito Panda MD EKG Performing Organization Address City/State/ZIP Code Phon e Number [facility] [phone] [facility] [address] [address] documented in this encounter Visit Diagnoses Not on filedocumented in this encounter Care Teams Cable Armorer Operator Relationship Specialty Start Date End Date Unassigned, Provider PCP - General 09/18/08 [address] [place] [address] documented as of this encounter
--- OUTSIDE RECORDS SUMMARY | 2022-02-02 09:32 | XMS_ITS | Encounter Summary ---
:1965 Author Organization [facility] Address [address] [address] Care Team Providers Name Role Phone Juanito Panda MD Primary Care Provider Unavailable Encounter Details Date Type Department Care Team Description 03/18/2001 Office Visit [facility] Internal Med Greyson Romero MD BACKACHE NOS; [address] [place] [address] [place], [place] [phone] (Wo rk) Social History Tobacco Use Types [...] as discussed. She is going to discontinue yfoy-[id number]-[id number] ibuprofen and use Naprosyn 500 milligrams po [...] limb documented in this encounter Care Teams Analytical Data Miner Relationship Specialty Start Date End Date Juanito Panda MD PCP - General 07/30/00 1 documented as of this encounter
--- OUTSIDE RECORDS SUMMARY | 2022-02-02 09:32 | XMS_ITS | Encounter Summary ---
:1965 Author Organization [facility] Address [address] [place] [address] Care Team Providers Name Role Phone Juanito Panda MD Primary Care Provider Unavailable Encounter Details Date Type Department Care Team Description 03/28/2001 Office Visit [facility] Obstetrics Blank Perez, GYNECOLO GIC EXAMINATION; and Gynecology GOVERNMENT GAUGER, VULCANIZER SCREENING MAL NEOP-CERVIX [address] [facility] [address] [place] [address] [place], [place] [phone] Social History Tobacco Use Types Packs/Day Years Used Date Smoking Tobacco: Never Assessed Sex Assigned at Date Recorded Not on file documented as of this encounter Progress Notes Blank Perez - 03/28/2001 12:00 AM CDTSUBJECTIVE: 36 year-old female comes in today for RHM. She is new to [facility]. She had a laminectomy in September involving C6 and C7. She has also had one section in 1987. Her children are 18, 17 and 13 and all healthy. Her one daughter is at college. Her father has HTN and diabetes and two VA's. He has had two open heart surgeries, [...] and HTN. May obtain the program through [employer] on prevention of diabetes. Patient will return in one year or prn. IN SUMMARY: RHM. cc: documented in this encounter Plan of Treatment Not on filedocumented as of this encounter Visit Diagnoses Diagnosis Gynecological examination Screening for malignant neoplasm of the cervix documented in this encounter Care Teams Office Rental Clerk Relationship Specialty Start Date End Date Juanito Panda MD PCP - General 07/30/000 1 documented as of this encounter
--- OUTSIDE RECORDS SUMMARY | 2022-02-02 09:32 | XMS_ITS | Encounter Summary ---
:1965 Author Organization [facility] Address [address], [place] [address] Care Team Providers Name Role Phone Greyson Gonzalez MD Primary Care Provider Encounter Details Date Type Department Care Team Description 05/01/2001 Orders Only [facility] Obstetrics and Anayeli Perez, MARINE HABITAT RESOURCE SPECIALIST, ADVERTISING DIRECTOR Gynecology [address] [place] [address] [place] [address] [phone] Social History Tobacco Use Types Packs/Day Years Used Date Smoking Tobacco: Never Assessed Sex Assigned at Date Recorded Not on file documented as of this encounter Procedure Notes Alfredo Mcmahon - 05/01/2001 12:00 AM CSTAssociated Order(s): ECHO EXAMINATION PROCEDURE TAPE NO: [id number] REFERRING PHYSICIAN: This patient was sent to [...] ESSENTIALLY NORMAL PELVIC ULTRASOUND cc: AUDREY Moffett ZINE EDITOR documented in this encounter Plan of Treatment Not on filedocumented as of this encounter Procedures Procedure Name Priority Date/Time Associated Diagnosis Comme nts UNLISTED ULTRASOUND 05/01/2001 Results for this PROCEDURE procedure are i n the results section . documented in this encounter Results ECHO EXAMINATION PROCEDURE (05/01/2001) Anatomical Region Laterality Modality Other Transcriptions Alfredo Mcmahon - 05/01/2001 12:00 AM MAGAZINE EDITOR TAPE NO: [id number] REFERRING PHYSICIAN: This patient was se nt [...] UL TRASOUND cc: AUDREY Moffett Blank Perez MARINE HABITAT RESOURCE SPECIALIST, ADVERTISING DIRECTOR PROC_2 documented in this encounter Visit Diagnoses Not on filedocumented in this encounter Care Teams Cocoa Bean Roaster Relationship Specialty Start Date End Date Greyson Gonzalez MD PCP - General 04/15/01 12/23/03 [address] [place] [address] documented as of this encounter
--- OUTSIDE RECORDS SUMMARY | 2022-02-02 09:32 | XMS_ITS | Encounter Summary ---
:1965 Author Organization [facility] Address [address], [place] [address] Care Team Providers Name Role Phone Greyson Gonzalez MD Primary Care Provider Encounter Details Date Type Department Care Team Description 07/02/2001 Office Visit [facility] Internal Greyson Gonzalez, JOINT PAIN-SHLDER; Medicine PAIN IN LIMB; [address] [place] [address] [place], [place] [phone] Social History Tobacco Use Types Packs/Day [...] as tolerated. She was reminded to return 911 DISPATCHER documented in this encounter Plan of Treatment Not on filedocumented as of this encounter Visit Diagnoses Diagnosis Pain in joint, shoulder region Pain in limb Disturbance of skin sensation documented in this encounter Care Teams Textile Examiner Relationship Specialty Start Date End Date Greyson Gonzalez MD PCP - General 04/15/01 12/23/03 [facility] [place] [address] documented as of this encounter
--- OUTSIDE RECORDS SUMMARY | 2022-02-02 09:32 | XMS_ITS | Encounter Summary ---
:1965 Author Organization [facility] Address [address] [place] [address] Care Team Providers Name Role Phone Juanito Panda MD Primary Care Provider Unavailable Encounter Details Date Type Department Care Team Description 09/21/2000 Office Visit HOSPITAL[facility] PROGRAM Sg Pal, LOW BACK PAIN (CHRONIC)>6 WE EKS; [address] MBBS GASTRITIS/DUODEN NOS W/O HEMORRH SOUTH [address] [place], [place] [address] [place] [address] (Wo rk) Social History Tobacco Use Types Packs/Day Years Used Date Smoking Tobacco: Never Assessed Sex Assigned at Date Recorded Not on file documented as of this encounter Plan of Treatment Not on filedocumented as of this encounter Visit Diagnoses Diagnosis Other unspecified back disorder Unspecified gastritis and gastroduodenit is without mention of hemorrhage documented in this encounter Care Teams Custodial Maintenance Worker Relationship Specialty Start Date End Date Juanito Panda MD PCP - General 07/30/00 1140 1 documented as of this encounter
--- OUTSIDE RECORDS SUMMARY | 2022-02-02 09:32 | XMS_ITS | Encounter Summary ---
:1965 Author Organization [facility] Address [address], [place] [address] Care Team Providers Name Role Phone Juanito Panda MD Primary Care Provider Unavailable Reason for Visit Reason Comments PRE-OP EXAM VIA INTERFACE Encounter Details Date Type Department Care Team Description 09/11/2000 Office Visit [facility] INTERNAL MED II Juanito Panda, DISC DIS NEC/NOS-UNSPEC; [address] [facility] [address] [place]; [place] [address] PREOP EXA M OTHER SPECIFIED; FOLLOW-UP EXAM [...] and symmetric in upper and lower extremities. Kinesiology Professor strength is full and equal. Remainder of [...] examination documented in this encounter Care Teams Boy'S Adviser Relationship Specialty Start Date End Date Juanito Panda MD PCP - General 07/30/00 1 documented as of this encounter
--- OUTSIDE RECORDS SUMMARY | 2022-02-02 09:32 | XMS_ITS | Encounter Summary ---
:1965 Author Organization [facility] Address [address] [place] [address] Care Team Providers Name Role Phone Juanito Panda MD Primary Care Provider Unavailable Encounter Details Date Type Department Care Team Description 12/20/2000 Orders Only [facility] Internal Med Juanito Chandra MD [address] [place] [address] Social History Tobacco Use Types Packs/Day Years Used Date Smoking Tobacco: Never Assessed Sex Assigned at Date Recorded Not on file documented as of this encounter Plan of Treatment Not on filedocumented as of this encounter Visit Diagnoses Not on filedocumented in this encounter Care Teams Cnc Maintenance Mechanic Relationship Specialty Start Date End Date Juanito Panda MD PCP - General 07/30/00 1 documented as of this encounter
--- OUTSIDE RECORDS SUMMARY | 2022-02-02 09:32 | XMS_ITS | Encounter Summary ---
:1965 Author Organization [facility] Address [address], [place] [address] Care Team Providers Name Role Phone Greyson Gonzalez MD Primary Care Provider Encounter Details Date Type Department Care Team Description 05/01/2001 Office Visit [place] [facility] community assistant manager Ult rasound IRREGULAR MENSTRUATION [address] [place], [place] [address] Social History Tobacco Use Types Packs/Day Years Used Date Smoking Tobacco: Never Assessed Sex Assigned at Date Recorded Not on file documented as of this encounter Progress Notes Alfredo Mcmahon - 05/01/2001 12:00 AM CSTThis Document has been Canceled. R STRIPPER documented in this encounter Plan of Treatment Not on filedocumented as of this encounter Visit Diagnoses Diagnosis Irregular menstrual cycle documented in this encounter Care Teams College Advisor Relationship Specialty Start Date End Date Greyson Gonzalez MD PCP - General 04/15/01 12/23/03 [address] [place], [place] [phone] documented as of this encounter
--- OUTSIDE RECORDS SUMMARY | 2022-02-02 09:32 | XMS_ITS | Encounter Summary ---
:1965 Author Organization [facility] Address [address] [place] [address] Care Team Providers Name Role Phone Unassigned, Provider Primary Care Provider Unavailable Encounter Details Date Type Department Care Team Description 03/28/2001 Orders Only Blank Burleson APRN, [place] [address] [place] [address] [place] [address] (Wo rk) Social History Tobacco [...] PAP SMEAR, ROUTINE (03/28/2001 9:30 AM CDT) [facility] Method Time Signature Pap Smear, See Separate Report [facility] Routine Performed at [facility] Specimen Anatomical Collection Method Collection Time Receive d Time (Source) Location / / Volume Laterality 03/28/2001 9:30 AM 11/14/200 1 CDT 12:22 PM EMERGENCY DEPARTMENT CLINICIAN Blank Perez APRN, CNP LAB_1 Performing Organization Address City/State/ZIP Code Phon e Number [facility] [phone] [facility] [address] [phone] documented in this encounter Visit Diagnoses Not on filedocumented in this encounter Care Teams Television Equipment Operator Relationship Specialty Start Date End Date Unassigned, Provider PCP - General 09/18/08 [address] [place] [address] documented as of this encounter
--- OUTSIDE RECORDS SUMMARY | 2022-02-02 09:32 | XMS_ITS | Encounter Summary ---
:1965 Author Organization [facility] Address [address] [place] [address] Care Team Providers Name Role Phone Juanito Panda MD Primary Care Provider Unavailable Reason for Visit Reason Comments NEW MEMBER VISIT VIA INTERFACE Encounter Details Date Type Department Care Team Description 08/10/2000 Office Visit [facility] INTERNAL MED II Juanito Panda, NEURALGIA/NEURITIS NOS [address] [place] [address] Social History Tobacco Use Types Packs/Day Years Used Date Smoking Tobacco: Never Assessed Sex Assigned at Date Recorded Not on file documented as of this encounter Progress Notes Juanito Panda - 08/10/2000 12:00 AM CSTS: This 35 year-old female is a new patient. We have received some records from [facility] [address] in [place], which are reviewed. These document that in [...] She was referred to Dr. Brandt of [facility] Neurosurgery. She saw him on 06/14/00 [...] trapezius and paracervical area is diffusely tender. Cns strength is slightly reduced on the right [...] an operative date has been decided. cc: R IN SUPERVISOR documented in this encounter Plan of Treatment Not on filedocumented as of this encounter Visit Diagnoses Diagnosis Neuralgia, neuritis, and radiculitis, un specified documented in this encounter Care Teams Oil Treater Relationship Specialty Start Date End Date Juanito Panda MD PCP - General 07/30/000 1 documented as of this encounter
--- OUTSIDE RECORDS SUMMARY | 2022-02-02 09:32 | XMS_ITS | Encounter Summary ---
:1965 [facility] Address [address] [place] [address] Care Team Providers Name Role Phone Unassigned, Provider Primary Care Provider Unavailable Encounter Details Date Type Department Care Team Description 04/22/2001 Orders Only Blank Burleson, MALL PLANT CARETAKER, ROADMASTER [address] [place], [place] [phone] [place] [address] (Wo rk) Social History Tobacco Use Types Packs/Day Years Used Date Smoking Tobacco: Never Assessed Sex Assigned at Date Recorded Not on file documented as of this encounter Plan of Treatment Not on filedocumented as of this encounter Procedures Procedure Name Priority Date/Time Associated Diagnosis Comme nts INSULIN,SERUM Routine 04/22/2001 7:26 AM Results for this RECEIVING WEIGHER procedure are i n the results section. LH Routine 04/22/2001 7:26 AM Results f or this RECEIVING WEIGHER procedure are i n the results section. FSH Routine 04/22/2001 7:26 AM Results f or this RECEIVING WEIGHER procedure are i n the results section. GLUCOSE - FASTING > Routine 04/22/2001 7:26 AM Re sults for this 8 HRS FASTING RECEIVING WEIGHER procedure are in the results section. documented in this encounter Results INSULIN,SERUM (04/22/2001 7:26 AM RECEIVING WEIGHER) [facility] Method Time Signature Insulin, 16 MIU/L [facility] Serum Insulin, Reference [facility] Serum range: 6 to 27 Comment Referred to [employer], 1355 [facility] 3[facility] [place], [place] Specimen Anatomical Collection Method Collection Time Receive d Time (Source) Location / / Volume Laterality 04/22/2001 7:26 AM 1 7:27 RECEIVING WEIGHER AM RECEIVING WEIGHER Blank Perez APRN, CNP LAB_1 Performing Organization Address City/[facility] Phon e Number [facility] [employer] [phone] [phone] (ABNORMAL) GLUCOSE - FASTING > 8 HRS FASTING (04/22/2001 7:26 AM RECEIVING WEIGHER) Analysis Performed At Patho logist Time Signature Glucose 136 (H) 70 - 110 [facility] mg/dl Hours Fasting 13 hours [facility] Specimen Anatomical Collection Method Collection Time Receive d Time (Source) Location / / Volume Laterality 04/22/2001 7:26 AM 1 7:27 RECEIVING WEIGHER AM RECEIVING WEIGHER Blank Peerz APRN, CNP LAB_1 Performing Organization Address [facility] Phon e Number [facility] [phone] [address] LH (04/22/2001 7:26 AM RECEIVING WEIGHER) [facility] g[facility] Method Time Signature LH 6.1 mIU/ml [facility] LH Expected Values- [facility] Prepubertal: ??<6.0 Follicular: ??1.9-12.5 Midcycle: ??8.7-76.3 Luteal: ??<1.0-16.9 Postmenopausal: ??5.0-52.3 Specimen Anatomical Collection Method Collection Time Receive d Time (Source) Location / / Volume Laterality 04/22/2001 7:26 AM 1 7:27 RECEIVING WEIGHER AM RECEIVING WEIGHER Blank Perez APRN, CNP LAB_1 Performing Organization Address [facility] Phon e Number [facility] [phone] [address] FSH (04/22/2001 7:26 AM RECEIVING WEIGHER) [facility] gist Method Time Signature FSH 5.5 mIU/ml [facility] FSH Expected Values- [facility] Prepubertal: ??<5.0 Follicular: ??2.5-10.2 Midcycle: ??3.4-33.4 Luteal: ??1.5-9.1 Postmenopausal: ??23.0-116.3 Specimen Anatomical Collection Method Collection Time Receive d Time (Source) Location / / Volume Laterality 04/22/2001 7:26 AM 1 7:27 RECEIVING WEIGHER AM RECEIVING WEIGHER Blank Perez MALL PLANT CARETAKER, ROADMASTER LAB_1 Performing Organization Address City/State/ZIP Code Phon e Number [facility] [phone] [facility] [address] [address] documented in this encounter Visit Diagnoses Not on filedocumented in this encounter Care Teams Mogul Operator Relationship Specialty Start Date End Date Unassigned, Provider PCP - General 09/18/08 [address] [place] [address] documented as of this encounter
--- OUTSIDE RECORDS SUMMARY | 2022-02-02 09:32 | XMS_ITS | Encounter Summary ---
:1965 Author Organization [facility] Address [address], [place] [address] Care Team Providers Name Role Phone Greyson Gonzalez MD Primary Care Provider Encounter Details Date Type Department Care Team Description 04/19/[address] [facility] Obstetrics and Blank Perez, WOOD PILE DRIVER OPERATOR , COUNSELING, HEALTH Gynecology [facility] [address] [facility] [address] [place] [address] [place], [place] [phone] [address] (Wo rk) Social History Tobacco Use [...] results. IN SUMMARY: FOLLOW UP LAB cc: HANDISE COLLECTOR documented in this encounter Plan of Treatment Not on filedocumented as of this encounter Visit Diagnoses Diagnosis Counseling NOS(V65.40) Counseling NOS documented in this encounter Care Teams Dental Practice Manager Relationship Specialty Start Date End Date Greyson Gonzalez MD PCP - General 04/15/01 12/23/03 [address] [place] [address] documented as of this encounter
--- OUTSIDE RECORDS SUMMARY | 2022-02-02 09:32 | XMS_ITS | Encounter Summary ---
:1965 Author Organization [facility] Address [address] [place] [address] Care Team Providers Name Role Phone Unassigned, Provider Primary Care Provider Unavailable Encounter Details Date Type Department Care Team Description 03/28/2001 Orders Only Blank Burleson, TEST CAR DRIVER, SHOWROOM MANAGER [address] [place], [place] [address] [place] [address] (Wo rk) Social History Tobacco [...] Perez APRN, CNP LAB_1 Performing Organization Address [facility]/ZIP Code Phon e Number [facility] [phone] [facility] [address] [place] [phone] TSH, SENSITIVE (03/28/2001 10:56 AM CDT) P athologist Signature TSH 1.59 0.30 - 5.00 [facility] uIU/ml Thyroid Meds No [facility] Specimen Anatomical Collection Method Collection Time Receive d Time (Source) Location / / Volume Laterality 03/28/2001 10:56 03/28/2001 AM CDT 10:57 AM CDT Blank Perez APRN, CNP LAB_1 Performing Organization Address [facility] Code Phon e Number [facility] [phone] [facility] [address] [place] [phone] TESTOSTERONE (03/28/2001 10:56 AM CDT) P athologist Signature Testosterone 34 20 - 80 [facility] ng/dl Specimen Anatomical Collection Method Collection Time Receive d Time (Source) Location / / Volume Laterality 03/28/2001 10:56 03/28/2001 AM CDT 10:57 AM CDT Blank Perez APRN, CNP LAB_1 Performing Organization Address [facility] Phon e Number [facility] [phone] [facility] [address] [place] [phone] HEMOGLOBIN, BLOOD (03/28/2001 10:56 AM CDT) P athologist Signature Hemoglobin 14.6 12.0 - 16.0 [facility] g/dl Specimen Anatomical Collection Method Collection Time Receive d Time (Source) Location / / Volume Laterality 03/28/2001 10:56 03/28/2001 AM CDT 10:57 AM CDT Blank Perez APRN, CNP LAB_1 Performing Organization Address City/[facility] Phon e Number [facility] [phone] [facility] [address] [place] [phone] (ABNORMAL) CHOLESTEROL LIPID PANEL FAST >12HR FAST (03/28/2001 10:56 AM CDT) Component Value Ref Test Analysis Performed At [facility] Range Method Time Signature Cholesterol 225 [...] CDT 10:57 AM CDT Blank Perez APRN, SHOWROOM MANAGER LAB_1 Performing Organization Address [facility] Phon e Number [facility] [phone] [address] documented in this encounter Visit Diagnoses Not on filedocumented in this encounter Care Teams High Speed Warper Tender Relationship Specialty Start Date End Date Unassigned, Provider PCP - General 09/18/[address] [place] [address] documented as of this encounter
--- OUTSIDE RECORDS SUMMARY | 2022-02-02 09:32 | XMS_ITS | Encounter Summary ---
:1965 Author Organization [facility] Address [address], [place] [address] Care Team Providers Name Role Phone Greyson Gonzalez MD Primary Care Provider Encounter Details Date Type Department Care Team Description 03/28/2001 Orders Only [facility] Obstetrics and Anayeli Giraldo, INFANTRY UNIT LEADER, AUDIT ANALYST Gynecology [address] [facility] [address] [facility] [place] [address] [place] [address] [phone] Social History Tobacco Use Types Packs/Day Years Used Date Smoking Tobacco: Never Assessed Sex Assigned at Date Recorded Not on file documented as of this encounter Plan of Treatment Not on filedocumented as of this encounter Procedures Procedure Name Priority Date/Time Associated Diagnosis Comme nts EDUCATION TRAINER CYTOLOGY Routine 03/28/2001 10:40 AM Results for this CDT procedure are i n the results section . documented in this encounter Results EDUCATION TRAINER CYTOLOGY (03/28/2001 10:40 AM CDT) [facility] Method Time Signature Technical Product Manager Cytology Technical Product Manager Cytology Report [facility] Patient Name: PADMINI CHOI Taken: 03/28/01 Received: 04/01/01 Reported: 04/23/01 Physician(s): BLANK IGRALDO ([id number]) ? [id number] Final Cytologic Diagnosis Cervical Endocervical,routine: ? Satisfactory for evaluation. ??Endocervical cells and/or squamous metaplastic cells ??present. This pap smear was sent to [facility] [address] [place] [address] ??[place] ??[address] for evaluation. ?? Their results are as follows. ? WITHIN NORMAL LIMITS (WNL) ? Comment qcs/04/23/01 Electronically Signed Out By [facility], [employer], MD [facility] ? Source of Specimen(s) Cervical Endocervical,routine [...] Address City/State/ZIP Code Phon e Number [address] [address] [place], [place] [phone] documented in this encounter Visit Diagnoses Not on filedocumented in this encounter Care Teams Pipelines Laborer Relationship Specialty Start Date End Date Greyson Gonzalez MD PCP - General 04/15/01 12/23/03 [address] [place], [place] [phone] documented as of this encounter
--- OUTSIDE RECORDS SUMMARY | 2022-02-02 09:32 | XMS_ITS | Encounter Summary ---
:1965 Author Organization [facility] Address [address], [place] [address] Care Team Providers Name Role Phone Juanito Panda MD Primary Care Provider Unavailable Encounter Details Date Type Department Care Team Description 03/18/2001 Orders Only [facility] Internal Med Greyson Romero MD 205 [facility] [address] [place] [address] [place] [address] [phone] (Wo rk) Social History Tobacco Use Types Packs/Day Years Used Date Smoking Tobacco: Never Assessed Sex Assigned at Date Recorded Not on file documented as of this encounter Plan of Treatment Not on filedocumented as of this encounter Visit Diagnoses Not on filedocumented in this encounter Care Teams Rn On Site Relationship Specialty Start Date End Date Juanito Panda MD PCP - General 07/30/000 1 documented as of this encounter
--- OUTSIDE RECORDS SUMMARY | 2022-02-02 09:32 | XMS_ITS | Encounter Summary ---
:1965 Author Organization [facility] Address [address] [place] [address] Care Team Providers Name Role Phone Unassigned, Provider Primary Care Provider Unavailable Encounter Details Date Type Department Care Team Description 05/13/2001 Orders Only Blank Burleson APRN, ANIMAL HUSBANDMAN [address] [place], [place] [address] [place] [address] (Wo rk) Social History Tobacco [...] Re sults for this 8 HRS FASTING TEACHER PUBLIC HEALTH procedure are in the results section. documented in this encounter Results (ABNORMAL) GLUCOSE - FASTING > 8 HRS FASTING (05/13/2001 8:47 AM TEACHER PUBLIC HEALTH) [facility] Time Signature Glucose 119 (H) 70 - 110 [facility] mg/dl Hours Fasting 10 hours [facility] Specimen Anatomical Collection Method Collection Time Receive d Time (Source) Location / / Volume Laterality 05/13/2001 8:47 AM 1 8:48 TEACH[facility] PUBLIC HEALTH AM TEACHER PUBLIC HEALTH Blank Perez APRN, CNP LAB_1 Performing Organization Address City/State/ZIP Code Phon e Number [facility] [phone] [facility] [address] [address] documented in this encounter Visit Diagnoses Not on filedocumented in this encounter Care Teams Revenue Stamp Clerk Relationship Specialty Start Date End Date Unassigned, Provider PCP - General 09/18/08 [address] [place] [address] documented as of this encounter
[2022-02-02 14:52] LABS: SARS PCR* Negative SARS-CoV-2 (Negative)
== END 2022-02-02 09:05 | disposition home or self-care (01) ==
PROVIDERS: PCP Nurse Practitioner Family; Visit Provider Nurse Practitioner Family
DX: Z20.822 Contact with and (suspected) exposure to COVID-19 (principal)
CPT/HCPCS: 87635

== ENCOUNTER 2022-02-06 10:07 | Outpatient (CLI) | payer BC, SELFPAY ==
--- OUTSIDE RECORDS SUMMARY | 2022-02-06 10:09 | XMS_ITS | Clinical Summary ---
:1965 Author Organization [facility] Address [address] [place] [address] Care Team Providers Name Role Phone Unavailable Primary Care Provider Unavailable Source Comments Patient records contain information from all sites at [facility]. For routine questions regarding patient records, call [phone] during business hours, M-F 8:00 AM - 5:00 PM Central Time. Record requests for emergency care only can be directed to [phone] at any time.[facility] Allergies Active Allergy Reactions Severity Noted [...] Sleep Medicine Chrissie Paredes M.D., M.P.H. [address] [phone] (Wo rk) 03/03/2022 Appointment Sleep Medicine Crhissie Paredes M.D., M.P.H. [address] [phone] (Wo rk) 03/16/2022 Office Visit Neurology Chrissie Paredes M.D., M.P.H. [address] [phone] (Wo rk) Health Maintenance [...] Addre ss Type Group BLUE [employer] [place] [id number] 2016-Raisa [phone] [address] O BLUE SHIELD t [address] [place] [address]
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
--- OUTSIDE RECORDS SUMMARY | 2022-02-06 10:09 | XMS_ITS | Encounter Summary ---
:1965 Author Organization [facility] Address [address] [place] [address] Care Team Providers Name Role Phone Unavailable Primary Care Provider Unavailable Encounter Details Date Type Department Care Team Description 11/16/2021 Orders Only [facility] [place] [facility] L[facility]N. [address] [place] [address] [place] [address] Social History Tobacco Use Types Packs/Day Years Used Date Smoking Tobacco: Never Smokeless Tobacco: Never Sex Assigned at Date Recorded Female 11/16/2021 10:41 AM CDT documented as of this encounter Plan of Treatment Upcoming Encounters Date Type Specialty Care Team Description 03/02/2022 Appointment Sleep Medicine Chrissie Paredes M.D., M.P.H. [address] [place] [phone] (Racquel morrison) 03/03/2022 Appointment Sleep Medicine Chrissie Paredes M.D., M.P.H[facility] [address] [place] [phone] (Racquel morrison) 03/16/2022 Office Visit Neurology Chrissie Paredes M.D., M.P.H. [address] [place] [phone] (Racquel morrison) documented as of this encounter Visit Diagnoses Not on filedocumented in this encounter
--- OUTSIDE RECORDS SUMMARY | 2022-02-06 10:09 | XMS_ITS | Encounter Summary ---
:1965 Author Organization [facility] Address [address] [place] [address] Care Team Providers Name Role Phone Unavailable Primary Care Provider Unavailable Encounter Details Date Type Department Care Team Description 10/11/2021 Clinical Communication [facility], Pcp Medicine, [facility], in [address] [address] Social History Tobacco Use Types Packs/Day Years Used Date Smoking Tobacco: Never Assessed Sex Assigned at Date Recorded Female 11/16/2021 10:41 AM CDT documented as of this encounter Plan of Treatment Upcoming Encounters Date Type Specialty Care Team Description 03/02/2022 Appointment Sleep Medicine Chrissie Paredes M.D., M.P.H. [address] [place] [phone] (Racquel morrison) 03/03/2022 Appointment Sleep Medicine Chrissie Paredes M.D., M.P.H. [address] [place] [phone] (Racquel rk) 03/16/2022 Office Visit Neurology Chrissie Paredes M.D., M.P.H. [address] [place] [phone] (Racquel rk) documented as of this encounter Visit Diagnoses Not on filedocumented in this encounter
--- OUTSIDE RECORDS SUMMARY | 2022-02-06 10:10 | XMS_ITS | Encounter Summary ---
:1965 Author Organization [facility] Address [address] [place] [address] Care Team Providers Name Role Phone Noreen Hills APRN SYSTEM ARCHIVE ANALYST Unavailable [phone] Noreen Hills APRN SYSTEM ARCHIVE ANALYST Primary Care Provider [phone] Kalyan Galvan Unavailable Unavailable Lashae Trevino [facility] Unavailable [phone] Eduardo Sharma MD Unavailable Marcelo Artis PA-C Unavailable [phone] Rodrigo Man PA-C Unavailable [phone] Reason for Referral Consultation (Routine) - Closed Specialty Diagnoses / Procedures Referred By Contact Refer red To Contact Rheumatology Diagnoses Polyarthralgia Kavin Fitzgerald [facility] MIKAYLA [facility] and [address] [place] [address] [place] [phone] Phone: Fax: Referral ID Status Reason Start Date Expiration Date Visits Requ ested Visits Authorized [id number] Closed 11/12/2020 11/12/2021 1 1 Reason for Visit Reason Comments Musculoskeletal Problem bilat legs and hands Encounter Details Date Type Department Care Team Description 11/10/2020 Office Visit [facility] Lizzie Fitzgerald sauloleslie (Primary Clinic Pino Fernandez, [place]) [address] [facility] [address] [facility] [place] [address] [place] [address] [phone] Social History Tobacco Use Types Packs/Day Years [...] How often do you attend quaker or buddhist Patient refused 08/08/2019 services? Do [...] - Rheumatology Referral; Future Kavin Fitzgerald PA-C [facility] Guzman is a 55 year [...] s/p cervical fusion. Migraines consistent--topamax. 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 FH: mother and daughter [...] [facility] OF tive 2:05 PM CDT [facility] Comment: ? Reference range: <1:40 ??NEGATIVE 1:40 - 1:80 ??BORDERLINE POSITIVE >1:80 POSITIVE FALGUNI pattern 1 DENSE FINE SPECKLED 11/11/2020 2:05 PM CDT [facility] FALGUNI titer 1 1:160 11/11/2020 2:05 PM CDT [facility] Specimen Anatomical Collection Method Collection Time Receive d Time (Source) Location / / Volume Laterality Blood 11/10/2020 2:29 PM 1 3:04 CDT PM CDT Kavin Fitzgerald PA-C LAB - BLOOD ORDERABLES Performing Organization Address City/State/ZIP Code Phon e Number [facility] [address] [place], [place] [phone] [place] [address] (ABNORMAL) Erythrocyte sedimentation rate auto (11/10/2020 2:29 PM CDT) P athologist Signature Sed Rate 40 (H) 0 - 30 mm/h 11/10/2020 [facility] 3:21 PM CDT [facility] Specimen Anatomical Collection Method Collection Time Receive d Time (Source) Location / / Volume Laterality Blood 11/10/2020 2:29 PM 1 3:04 CDT PM CDT Kavin Fitzgerald PA-C LAB - BLOOD ORDERABLES Performing Organization Address City/State/ZIP Code Phon e Number [address] [address] [phone] Rheumatoid factor (11/10/2020 2:29 PM CDT) P athologist Signature Rheumatoid <7 <12 IU/mL 11/11/2020 [facility] Factor 11:52 AM CDT [facility] Specimen Anatomical Collection Method Collection Time Receive d Time (Source) Location / / Volume Laterality Blood 11/10/2020 2:29 PM 1 3:04 CDT PM CDT Kavin Fitzgerald PA-C LAB - BLOOD ORDERABLES Performing Organization Address City/[facility]/ZIP Code Phon e Number [facility] [address] [place] [address] [facility] Cyclic Citrullinated Peptide Antibody IgG (11/10/2020 2:29 PM CDT) Patholo gist Method Time Signature Cyclic 2 <7 U/mL 11/11/2020 [facility] 2:03 PM CDT [facility] Peptide Antibody, [facility] Comment: Negative Specimen Anatomical Collection Method Collection Time Receive d Time (Source) Location / / Volume Laterality Blood 11/10/2020 2:29 PM 1 3:04 CDT PM CDT Kavin Fitzgerald PA-C LAB - BLOOD ORDERABLES Performing Organization Address City/[facility]/ZIP Code Phon e Number [facility] [address] [place] [phone] [facility] CRP inflammation (11/10/2020 2:29 PM CDT) Analysis Performed At Patho logist Time Signature CRP Inflammation <2.9 0.0 - 8.0 11/10/2020 [facility] F mg/L 8:40 PM CDT [facility] Specimen Anatomical Collection Method Collection Time Receive d Time (Source) Location / / Volume Laterality Blood 11/10/2020 2:29 PM 1 3:04 CDT PM CDT Kavin Fitzgerald PA-C LAB - BLOOD ORDERABLES Performing Organization Address City/State/ZIP Code Phon e Number [facility] [address] [place] [address] [facility] CBC with platelets differential (11/10/2020 2:29 PM CDT) [facility] Method Time Signature WBC 5.5 4.0 [...] [facility] Absolute 0.1 0.0 - 0.2 11/10/2020 [facility] Basophils 10e9/L 3:14 PM CDT [facility] Diff Method Automated 11/10/2020 [facility] Method 3:14 PM CDT [facility] Specimen Anatomical Collection Method Collection Time Receive d Time (Source) Location / / Volume Laterality Blood 11/10/2020 2:29 PM 3:04 CDT PM CDT Kavin Fitzgerald PA-C LAB - BLOOD ORDERABLES Performing Organization Address City/State/ZIP Code Phon e Number [facility] [address] [place] [address] [phone] (ABNORMAL) Comprehensive metabolic panel (11/10/2020 2:29 PM CDT) Analysis Performed At Patho logist Time Signature Sodium 142 133 - 144 11/10/2020 [facility] mmol/L 7:51 PM CDT [facility] Potassium 4.0 3.4 - 5.3 11/10/2020 [facility] mmol/L 7:51 PM CDT [facility] Chloride 112 (H) 94 - 109 11/10/2020 [facility] mmol/L 7:51 PM CDT [facility] Carbon Dioxide 27 20 - 32 11/10/2020 [facility] mmol/L 7:58 PM CDT [facility] Anion Gap 4 3 - 14 11/10/2020 [facility] mmol/L 7:58 PM CDT [facility] Glucose 96 70 - 99 11/10/2020 [facility] mg/dL 7:58 PM CDT [facility] Urea Nitrogen 14 7 - 30 11/10/2020 [facility] mg/dL 7:58 PM CDT [facility] Creatinine 0.74 0.52 - 11/10/2020 [facility] 1.04 mg/dL 7:58 PM CDT [facility] GFR Estimate >90 >60 11/10/2020 [facility] mL/min/{1. 7:58 PM [facility] MEDICAL 73_m2} [facility] Comment: Non GFR Calc Starting 05/28/2018, serum creatinine ba sed estimated GFR (eGFR) will be calculated using the Chronic Kidney Dise banner Epidemiology Collaboration (CKD-EPI) equation. GFR Estimate If >90 >60 mL/min/{1.73_m2} 11/10/2020 7: 58 PM [facility] Black [facility] Comment: GFR Calc Starting 05/28/2018, serum creatinine ba sed estimated GFR (eGFR) will be calculated using the Chronic Kidney Dise banner Epidemiology Collaboration (CKD-EPI) equation. Calcium 9.3 8.5 - 10.1 mg/dL 11/10/2020 7:58 PM [facility] Bilirubin Total 0.6 0.2 - 1.3 mg/dL 11/10/2020 8:01 PM [facility] Albumin 3.6 3.4 - 5.0 g/dL 11/10/2020 8:01 PM [facility] Protein Total 7.2 6.8 - 8.8 g/dL 11/10/2020 8:01 PM [facility] Alkaline Phosphatase 143 40 - 150 [...] Organization Address City/State/ZIP Code Phon e Number [facility] [address] [place] [address] [facility] documented in this encounter Visit Diagnoses Diagnosis Polyarthralgia - Primary Pain in joint, multiple sites documented in this encounter Additional Health Concerns Assessment Noted Time PHQ-9 Depression Total Score: 7 11/10/2020 1:31 PM CDT documented as of this encounter Care Teams Cost Recovery Technician Relationship Specialty Start Date End Date Noreen Hills PCP - General Nurse Practitioner 01/09/19 12/12/21 SEAN Haley SYSTEM ARCHIVE ANALYST [address] [facility] [place] [address] Noreen Hills Assigned PCP 06/16/18 SEAN Haley SYSTEM ARCHIVE ANALYST [address] [facility] [place] [address] Kalyan Galvan Personal Advocate & 08/08/19 Liaison (PAL) Lashae Trevino Pharmacist Pharmacist 10/14/19 12/01/20 [facility] [address] [address] [place], [place] [phone] Eduardo Sharma MD Assigned Sleep Provider 04/02/20 05/07/[address] [place] [address] Marcelo Artis Assigned Musculoskeletal 08/25/20 08/20/21 MIKAYLA Nuno Provider [address] [facility] [address] [place], [place] [address] Rodrigo Man Assigned Surgical 08/25/2011/27 MIKAYLA Lacy Provider [address] [place] [id number] documented as of this encounter
--- OUTSIDE RECORDS SUMMARY | 2022-02-06 10:10 | XMS_ITS | Encounter Summary ---
:1965 Author Organization [facility] Address [address] [place] [address] Care Team Providers Name Role Phone Noreen Hills APRN, CNP Unavailable [phone] Noreen Hills APRN, CNP Primary Care Provider [phone] Kalyan Galvan Unavailable Unavailable Eduardo Sharma MD Unavailable Marcelo Artis PA-C Unavailable [phone] Encounter Details Date Type Department Care [...] How often do you attend worship or bahai Patient refused 08/08/2019 services? Do [...] as of this encounter Care Teams Electrical Prospecting Engineer Relationship Specialty Start Date End Date Noreen Hills PCP - General Nurse Practitioner 01/09/19 12/12/21 SEAN Haley FEATHER DUSTER WINDER [address] [facility] [place] [address] Noreen Hills Assigned PCP 06/16/18 SEAN Haley FEATHER DUSTER WINDER [address] [facility] [place] [phone] Kalyan Galvan Personal Advocate & 08/08/19 Liaison (PAL) Eduardo Sharma MD Assigned Sleep Provider 04/02/20 05/07/21 [address] [facility] [address] [place] [address] Marcelo Artis Assigned Musculoskeletal 08/25/20 08/20/21 MIKAYLA Nuno Provider [address] [facility] [address] [place] [address] documented as of this encounter
--- OUTSIDE RECORDS SUMMARY | 2022-02-06 10:10 | XMS_ITS | Encounter Summary ---
:1965 Author Organization [facility] Address [address] [place] [address] Care Team Providers Name Role Phone Noreen Hills APRN RATE EXAMINER Unavailable [phone] Noreen Hills APRN, CNP Primary Care Provider [phone] Kalyan Galvan Unavailable Unavailable Lashae Trevino [facility] Unavailable [phone] Eduardo Sharma MD Unavailable Marcelo Atris PA-C Unavailable [phone] Rodrigo Man PA-C Unavailable [phone] Encounter Details Date Type Department Care Team Description 11/12/2020 Telephone [facility] Noreen Hills Eagan APRN RATE EXAMINER [address] [facility] [address] [place] [address] [address] [place] [address] [place] [address] [phone] Social History Tobacco Use Types Packs/Day Years [...] How often do you attend bahai or jain Patient refused 08/08/2019 services? Do you belong to any clubs or organizations such as No 08/08/2019 bahai groups, Herotainments, fraOperation Supply Drop or athletic groups, or school groups? How [...] Faria, RN - Patient Advocate Liason (PAL) [facility] Telephone Encounter - Angel Faria [...] documented as of this encounter Care Teams Block And Case Maker Relationship Specialty Start Date End Date Noreen Hills PCP - General Nurse Practitioner 01/09/19 12/12/21 SEAN Haley RATE EXAMINER [address] [facility] [place] [address] Noreen Hills Assigned PCP 06/16/18 SEAN Haley RATE EXAMINER [address] [facility] [place] [address] Kalyan Galvan Personal Advocate & 08/08/19 Liaison (PAL) Lashae Trevino Pharmacist Pharmacist 10/14/19 12/01/20 [facility] [address] [place] [phone] Eduardo Sharma MD Assigned Sleep Provider 04/02/20 05/07/21 [address] [place] [address] Marcelo Artis Assigned Musculoskeletal 08/25/20 08/20/21 MIKAYLA Nuno Provider [address] [facility] [address] [place] [address] Rodrigo Man Assigned Surgical 08/25/2011/27 MIKAYLA Lacy Provider [address] [place] [address] documented as of this encounter
--- OUTSIDE RECORDS SUMMARY | 2022-02-06 10:10 | XMS_ITS | Encounter Summary ---
:1965 Author Organization [facility] Address [address] [place] [address] Care Team Providers Name Role Phone Noreen Hills APRN, CNP Unavailable [phone] Noreen Hills APRN, CNP Primary Care Provider [phone] Kalyan Galvan Unavailable Unavailable Lashae Trevino [facility] Unavailable [phone] Eduardo Sharma MD Unavailable Marcelo Artis PA-C Unavailable [phone] Rodrigo Man PA-C Unavailable [phone] Reason for Visit Reason Onset Date Comments Refill Request 09/24/2020 zolpidem (AMBIEN) 5 MG tablet Encounter Details Date Type Department Care Team Description 09/24/2020 Refill M [facility] Noreen Hills Refill Req uest (zolpidem Clinic Pino Haley APRN CNP (AMBIEN) 5 MG tablet) [address] [place] [address] [facility] [address] [place] [address] [place] [address] [phone] Social History Tobacco Use Types Packs/Day Years [...] such as No 08/08/2019 jainism groups, unions, fraEchodio or athletic groups, or school groups? How [...] as of this encounter Care Teams Compliance Counsel Relationship Specialty Start Date End Date Noreen Hills PCP - General Nurse Practitioner 01/09/19 12/12/21 SEAN Haley FIRER TUNNEL KILN [address] [facility] [place] [phone] Noreen Hills Assigned PCP 06/16/18 SEAN Haley FIRER TUNNEL KILN [address] [facility] [place] [phone] Kalyan Galvan Personal Advocate & 08/08/19 Liaison (PAL) Lashae Trevino Pharmacist Pharmacist 10/14/19 12/01/20 [facility] [address] [facility] [place] [phone] Eduardo Sharma MD Assigned Sleep Provider 04/02/20 05/07/21 [address] [place] [id number] Marcelo Artis Assigned Musculoskeletal 08/25/20 08/20/21 MIKAYLA Nuno Provider [address] [facility] [address] [place], [place] [address] Rodrigo Man Assigned Surgical 08/25/2011/27 MIKAYLA Lacy Provider [address] [place] [address] documented as of this encounter
--- OUTSIDE RECORDS SUMMARY | 2022-02-06 10:10 | XMS_ITS | Encounter Summary ---
:1965 Author Organization [facility] Address [address] [place] [address] Care Team Providers Name Role Phone Noreen Hills APRN POLITICAL ANALYST Unavailable [phone] Noreen Hills APRN POLITICAL ANALYST Primary Care Provider [phone] Kalyan Galvan Unavailable Unavailable Lashae Trevino [facility] Unavailable [phone] Eduardo Sharma MD Unavailable Marcelo Artis PA-C Unavailable [phone] Rodrigo Man PA-C Unavailable [phone] Encounter Details Date Type Department Care Team [...] How often do you attend synagogue or congregational Patient refused 08/08/2019 services? Do [...] as of this encounter Care Teams Window Caser Relationship Specialty Start Date End Date Noreen Hills PCP - General Nurse Practitioner 01/09/19 12/12/21 SEAN Haley POLITICAL ANALYST 3305 [facility] [place] [address] Noreen Hills Assigned PCP 06/16/18 SEAN Haley POLITICAL ANALYST 3305 [facility] [place] [address] Kalyan Galvan Personal Advocate & 08/08/19 Liaison (PAL) Lashae Trevino Pharmacist Pharmacist 10/14/19 12/01/20 [facility] 1440 [facility] [place] [phone] Eduardo Sharma MD Assigned Sleep Provider 04/02/20 05/07/21 [address] [place] [id number] Marcelo Artis Assigned Musculoskeletal 08/25/20 08/20/21 MIKAYLA Nuno Provider [address]88 [facility] [address] [place], [place] 282827 Rodrigo Man Assigned Surgical 08/25/2011/27 MIKAYLA Lacy Provider [address] [place] [id number] documented as of this encounter
--- OUTSIDE RECORDS SUMMARY | 2022-02-06 10:10 | XMS_ITS | Encounter Summary ---
:1965 Author Organization [place] Address [address] [place] [address] Care Team Providers Name Role Phone Noreen Hills APRN PATROL COMMANDER Unavailable [phone] Noreen Hills APRN PATROL COMMANDER Primary Care Provider [phone] Kalyan Galvan Unavailable Unavailable Lashae Trevino [facility] Unavailable [phone] Eduardo Sharma MD Unavailable Marcelo Artis PA-C Unavailable [phone] Rodrigo Man PA-C Unavailable [phone] Encounter Details Date Type Department Care Team Description 11/02/2020 Records - [facility] CON[facility] Provider, Histor ical Social History [...] How often do you attend rastafari or nondenominational Patient refused 08/08/2019 services? Do [...] documented as of this encounter Care Teams Messenger Floorperson Relationship Specialty Start Date End Date Noreen Hills PCP - General Nurse Practitioner 01/09/19 12/12/21 SEAN Haley PATROL COMMANDER 3305 [facility] [place] [phone] Noreen Hills Assigned PCP 06/16/18 SEAN Haley PATROL COMMANDER 3305 [facility] [place] [address] Kalyan Galvan Personal Advocate & 08/08/19 Liaison (PAL) Lashae Trevino Pharmacist Pharmacist 10/14/19 12/01/20 [facility] 1440 [facility] [place] [phone] Eduardo Sharma MD Assigned Sleep Provider 04/02/20 05/07/[address] [place] [id number] Marcelo Artis Assigned Musculoskeletal 08/25/20 08/20/21 MIKAYLA Nuno Provider [address]39 [facility] [address] [place], [place] 171087 Rodrigo Man Assigned Surgical 08/25/2011/27 MIKAYLA Lacy Provider [address] [place] [address] documented as of this encounter
--- OUTSIDE RECORDS SUMMARY | 2022-02-06 10:10 | XMS_ITS | Encounter Summary ---
:1965 Author Organization [facility] Address [address] [place] [address] Care Team Providers Name Role Phone Noreen Hills APRN, CNP Unavailable [phone] Noreen Hills APRN, CNP Primary Care Provider [phone] Kalyan Galvan Unavailable Unavailable Lashae Trevino [facility] Unavailable [phone] Eduardo Sharma MD Unavailable Marcelo Artis PA-C Unavailable [phone] Rodrigo Man PA-C Unavailable Reason for Visit Reason Onset Date Comments Refill Request 10/05/2020 topiramate (TOPAMAX) 100 MG tablet Encounter Details Date Type Department Care Team Description 10/05/2020 Refill [facility] Noreen Hills Refill [facility] Pino Haley APRN CNP (topiramate (TOPAMAX) [address] [place] 3305 [facility] 100 M G tablet) [facility] [address] [place] [address] [place] [address] [phone] Social History Tobacco Use Types Packs/Day Years [...] How often do you attend voodoo or anglican Patient refused 08/08/2019 services? Do you belong to any clubs or organizations such as No 08/08/2019 voodoo groups, NetHookss, fraPersoneta or athletic groups, or school groups? How [...] documented as of this encounter Care Teams Engravings Polisher Relationship Specialty Start Date End Date Noreen Hills PCP - General Nurse Practitioner 01/09/19 12/12/21 SEAN Haley DEGREASER 3305 [facility] [place] [phone] Noreen Hills Assigned PCP 06/16/18 SEAN Haley DEGREASER 3305 [facility] [place] [address] Kalyan Galvan Personal Advocate & 08/08/19 Liaison (PAL) Lashae Trevino Pharmacist Pharmacist 10/14/19 12/01/20 Kiran, [facility] [address] [facility] [place] [phone] Eduardo Sharma MD Assigned Sleep Provider 04/02/20 05/07/21 [address] [place] [address] Marcelo Artis Assigned Musculoskeletal 08/25/20 08/20/21 MIKAYLA Nuno Provider 39044 [facility] 300 [place] [address] Rodrigo Man Assigned Surgical 08/25/2011/27 MIKAYLA Lacy Provider 6545 [facility] 450 [place], [place] 134595 documented as of this encounter
--- OUTSIDE RECORDS SUMMARY | 2022-02-06 10:10 | XMS_ITS | Encounter Summary ---
:1965 Author Organization [facility] Address [address] [place] [address]. [place] [address] Care Team Providers Name Role Phone Noreen Hills APRN ANALYST Unavailable [phone] Noreen Hills APRN ANALYST Primary Care Provider [phone] Kalyan Galvan Unavailable Unavailable Lashae Trevino [facility] Unavailable [phone] Eduardo Sharma MD Unavailable Marcelo Artis PA-C Unavailable [phone] Rodrigo Man PA-C Unavailable [phone] Encounter Details Date Type Department Care Team Description 09/24/[address] [facility] Ruperto Monk, Vaccination Center - [address] [address] [place], [place] [address] [phone] Social History Tobacco Use Types Packs/Day Years [...] How often do you attend confucianist or gnosticist Patient refused 08/08/2019 services? Do you belong to any clubs or organizations such as No 08/08/2019 confucianist groups, Cortina Systemss, fraTarpon Towers or athletic groups, or school groups? How [...] documented as of this encounter Care Teams Joinery Setter Out Relationship Specialty Start Date End Date Noreen Hills PCP - General Nurse Practitioner 01/09/19 12/12/21 SEAN Haley ANALYST 3305 [facility] [place] [phone] Noreen Hills Assigned PCP 06/16/18 SEAN Haley ANALYST 3305 [facility] [place] [phone] Kalyan Galvan Personal Advocate & 08/08/19 Liaison (PAL) Lashae Trevino Pharmacist Pharmacist 10/14/19 12/01/[address] [facility] 1440 [facility] [place] [phone] Eduardo Sharma MD Assigned Sleep Provider 04/02/20 05/07/21 [address] [place] [id number] Marcelo Artis Assigned Musculoskeletal 08/25/20 08/20/21 MIKAYLA Nuno Provider 98869 [facility] [address] [place] [address] Rodrigo Man Assigned Surgical 08/25/2011/27 MIKAYLA Lacy Provider [address] [place] [id number] documented as of this encounter
--- OUTSIDE RECORDS SUMMARY | 2022-02-06 10:10 | XMS_ITS | Encounter Summary ---
:1965 Author Organization [facility] Address [address] [place] [address] Care Team Providers Name Role Phone Noreen Hills APRN, CNP Unavailable [phone] Noreen Hills APRN, CNP Primary Care Provider [phone] Kalyan Galvan Unavailable Unavailable Eduardo Sharma MD Unavailable Marcelo Artis PA-C Unavailable [phone] Reason for Visit Reason Comments Medication Refill Encounter Details Date Type Department Care Team Description 12/20/2020 Refill [facility] Noreen Hills, Medication Refill Pino ESTRADA SPORTS PHYSICIAN 3305 [facility] [address] [place] [address] [address] [place] [address] [place] [address] [phone] Social History Tobacco Use Types Packs/Day Years [...] How often do you attend episcopalian or latter day Patient refused 08/08/2019 services? [...] 12/22/2020 10:44 AM CDT Prescription approved per [facility] Refill Protocol. Wilda Aponte RN, BSN Message handled by CLINIC NURSE. documented in this encounter Plan of Treatment Not on filedocumented as of this encounter Visit Diagnoses Diagnosis Gastroesophageal reflux disease without esophagitis Esophageal reflux documented in this encounter Additional Health Concerns Assessment Noted Time PHQ-9 Depression Total Score: 7 11/10/2020 1:31 PM CDT documented as of this encounter Care Teams Landfill Gas Collection System Operator Relationship Specialty Start Date End Date Noreen Hills PCP - General Nurse Practitioner 01/09/19 12/12/21 SEAN Haley SPORTS PHYSICIAN 3305 [facility] [place] [address] Noreen Hills Assigned PCP 06/16/18 SEAN Haley SPORTS PHYSICIAN 3305 [facility] [place] [address] Kalyan Galvan Personal Advocate & 08/08/19 Liaison (PAL) Eduardo Sharma MD Assigned Sleep Provider 04/02/20 05/07/21 [address] [facility] 103 [place] [address] Marcelo Artis Assigned Musculoskeletal 08/25/20 08/20/21 MIKAYLA Nuno Provider [address] [facility] [address] [place] [address] documented as of this encounter
--- OUTSIDE RECORDS SUMMARY | 2022-02-06 10:10 | XMS_ITS | Encounter Summary ---
:1965 Author Organization [facility] Address [address] [place] [address]. [place] [address] Care Team Providers Name Role Phone Noreen Hills APRN DOCUMENT CONTROL ASSISTANT Unavailable [phone] Noreen Hills APRN DOCUMENT CONTROL ASSISTANT Primary Care Provider [phone] Kalyan Galvan Unavailable Unavailable Lashae Trevino [facility] Unavailable [phone] Eduardo Sharma MD Unavailable Marcelo Artis PA-C Unavailable [phone] Rodrigo Man PA-C Unavailable [phone] Encounter Details Date Type Department Care Team Description 09/03/2020 [facility] [address] [place], [place] [phone] Social History Tobacco Use [...] How often do you attend protestant or druze Patient refused 08/08/2019 services? Do [...] documented as of this encounter Care Teams Ribbon Winder Relationship Specialty Start Date End Date Noreen Hills PCP - General Nurse Practitioner 01/09/19 12/12/21 SEAN Haley DOCUMENT CONTROL ASSISTANT 3305 [facility] [place] [address] Noreen Hills Assigned PCP 06/16/18 SEAN Haley DOCUMENT CONTROL ASSISTANT 3305 [facility] [place] [address] Kalyan Galvan Personal Advocate & 08/08/19 Liaison (PAL) Lashae Trevino Pharmacist Pharmacist 10/14/19 12/01/20 [facility] [address] [facility] [address] [place], [place] [phone] Eduardo Sharma MD Assigned Sleep Provider 04/02/20 05/07/21 [address] [place] [address] Marcelo Artis Assigned Musculoskeletal 08/25/20 08/20/21 MIKAYLA Nuno Provider 442[address] [facility] 300 [place], [place] 37[address] Rodrigo Man Assigned Surgical 08/25/2011/27 MIKAYLA Lacy Provider [address] [place] [address] documented as of this encounter
--- OUTSIDE RECORDS SUMMARY | 2022-02-06 10:10 | XMS_ITS | Encounter Summary ---
:1965 Author Organization [facility] Address [address] [place] [address] Care Team Providers Name Role Phone Unavailable Primary Care Provider Unavailable Reason for Visit Reason Comments Triage Encounter Details Date Type Department Care Team Description 02/01/2021 Clinical Communication Division of Rheumatology Zachary Parks Triage in [facility] gem WANG M.D. [address] [facility] [address] [place], [place] [address] [place], [place] [phone] Social History Tobacco Use Types Packs/Day Years [...] chart Scheduling Priority: Send Response to: T [facility] SCHEDULING Name: Megan Choi [facility] Number: [id number] Birthdate: 1965 Email: Rheumatology Model of Care [...] goals for your visit to [facility]: To find out why I'm in so much pain all the time especially in my joints and why I am always swollen every morning when I wake up and continue to be much more so by the time I go to bed at night. Who is referring you to [facility] (provide name and address): Dr. Rosangela Cho Is this a Pulpwood Dealer: No Is this your local provider that you would like us to communicate with: Yes What are your goals for your visit to [facility]: To find out why I'm in [...] see any specialists while at [facility]: Yes Please list any specialists that you or your local provider feel you should see while you are at [facility] and explain: Lico Sharpe How would [...] best phone number to reach you at: [phone] documented in this encounter Plan of Treatment Upcoming Encounters Date Type Specialty Care Team Description 03/02/2022 Appointment Sleep Medicine Chrissie Paredes M.D., M[facility]P.[facility] [address] [place] [phone] (Racquel morrison) 03/03/2022 Appointment Sleep Medicine Chrissie Paredes M.D., M.P.H[facility] [address] [place] [phone] (Racquel morrison) 03/16/2022 Office Visit Neurology Chrissie Paredes M.D., M.P.H[facility] [address] [place] [phone] (Wo rk) documented as of this encounter Visit Diagnoses Not on filedocumented in this encounter
--- OUTSIDE RECORDS SUMMARY | 2022-02-06 10:10 | XMS_ITS | Clinical Summary ---
:1965 Author Organization [facility] Address [address] [place] [address] Care Team Providers Name Role Phone Noreen Hills APRN DISPLAY DESIGNER OUTSIDE Unavailable [phone] Allergies Active Allergy Reactions Severity Noted Date [...] use of insulin (H) fluticasone (FLONASE) [address] [place] 1-2 sprays into 16 g 11 Active [...] use. Address next visit Family history of ND (myocardial infarction) 8 Overview: At early age, father ND at age 40 Resolved Problems Problem Noted [...] Description 12/08/2021 Refill IM/Peds Jeana, Noreen Sudha, ORACLE EBS DEVELOPER DISPLAY DESIGNER OUTSIDE Medication Refill from Last 3 Months Immunizations [...] 4 Kidney Disease Brother 5 Cardiovascular Father ND early 40s, subseq uent bipass Diabetes Father Hypertension Father Lipids Father Diabetes Maternal Grandfather Hypertension Maternal Grandfather Lipids Maternal Grandfather Diabetes Maternal Grandmother Hypertension Maternal Grandmother Lipids Maternal Grandmother Arthritis Mother OA Cardiovascular Mother ND age 72 Diabetes Mother Type II Hypertension [...] How often do you attend faith or mosque Patient refused 08/08/2019 services? Do [...] ss Type Group BCBS BCBS OUT OF [id number] 2016-Present [phone] [address] [address] [place] [address] Megan Choi Medication Self 1965 [address]Home) [address] [place] ([place]) [place] [address] Care Teams Tram Driver Relationship Specialty Start Date End Date Noreen Hills APRN DISPLAY DESIGNER OUTSIDE Assigned PCP 06/16/18 3305 [facility] [place] [address]
--- OUTSIDE RECORDS SUMMARY | 2022-02-06 10:10 | XMS_ITS | Encounter Summary ---
:1965 Author Organization [facility] Address [address] [place] [address] Care Team Providers Name Role Phone Noreen Hills APRN, CNP Unavailable [phone] Noreen Hills APRN, CNP Primary Care Provider [phone] Kalyan Galvan Unavailable Unavailable Eduardo Sharma MD Unavailable Marcelo Artis PA-C Unavailable [phone] Reason for Visit Reason Comments Consult multiple joint pain Consultation (Routine) - Closed Specialty Diagnoses / Procedures Referred By Contact Refer red To Contact Rheumatology Diagnoses Polyarthralgia Kavin Fitzgerald [facility] MIKAYLA Fernandez [facility] and [address] [place], [place] [address] [place] [address] [place] [address] Phone: Fax: Referral ID Status Reason Start Date Expiration Date Visits Requ ested Visits Authorized [id number] Closed 11/12/2020 11/12/2021 1 1 Encounter Details Date Type Department Care Team Description 01/03/2021 Virtual Visit [facility] Kristian Painting M [facility] [address] [address] [address] [place] [address] Social History Tobacco Use Types [...] documented as of this encounter Care Teams Lens Grinder Rough Relationship Specialty Start Date End Date Noreen Hills PCP - General Nurse Practitioner 01/09/19 12/12/21 SEAN Haley INFANT LEAD TEACHER 3305 [facility] [place] [address] Noreen Hills Assigned PCP 06/16/18 SEAN Haley INFANT LEAD TEACHER 3305 [facility] [place] [address] Kalyan Galvan Personal Advocate & 08/08/19 Liaison (PAL) Eduardo Sharma MD Assigned Sleep Provider 04/02/20 05/07/21 [address] [facility] 103 [place] [address] Marcelo Artis Assigned Musculoskeletal 08/25/20 08/20/21 MIKAYLA Nuno Provider 12244 [facility] [address] [place], [place] 8[address] documented as of this encounter
--- OUTSIDE RECORDS SUMMARY | 2022-02-06 10:10 | XMS_ITS | Encounter Summary ---
:1965 Author Organization [place] Address [address] [place] [address] Care Team Providers Name Role Phone Noreen Hills APRN, CNP Unavailable [phone] Noreen Hills APRN, CNP Primary Care Provider [phone] Kalyan Gavlan Unavailable Unavailable Eduardo Sharma MD Unavailable Marcelo Artis PA-C Unavailable [phone] Reason for Visit Reason Onset Date Comments Panel Management 04/04/2021 phys,pap, colon, thomas mo, PHQ9, Diab f/u, Imm Encounter Details Date Type Department Care Team Description 04/04/2021 [facility] Pino Haley APRN CNP (phys,pap, colon, [address] [place] 3305 [facility] mammo , PHQ9, Diab f/u, [facility] DR Imm) [address] [place] [address] [place] [address] [phone] Social History Tobacco Use Types Packs/Day Years [...] How often do you attend rastafari or pentecostalism Patient refused 08/08/2019 services? Do [...] Influenza and Shingrix Type of outreach: Sent Bib + Tuck message. Questions for provider review: None Christi Panda CMA Chart routed to Care Team. documented in this encounter Plan of Treatment Not on filedocumented as of this encounter Visit Diagnoses Not on filedocumented in this encounter Additional Health Concerns Assessment Noted Time PHQ-9 Depression Total Score: 7 11/10/2020 1:31 PM CDT documented as of this encounter Care Teams Mold Press Operator Relationship Specialty Start Date End Date Noreen Hills PCP - General Nurse Practitioner 01/09/19 12/12/21 SEAN Haley PARTICLEBOARD FACTORY WORKER 3305 [facility] [place] [address] Noreen Hills Assigned PCP 06/16/18 SEAN Haley PARTICLEBOARD FACTORY WORKER 3305 [facility] [place] [address] Kalyan Galvan Personal Advocate & 08/08/19 Liaison (PAL) Eduardo Sharma MD Assigned Sleep Provider 04/02/20 05/07/21 [address] [place], [place] [address] Marcelo Artis Assigned Musculoskeletal 08/25/20 08/20/21 MIKAYLA Nuno Provider [address] [facility] [address] [place], [place] [address] documented as of this encounter
--- OUTSIDE RECORDS SUMMARY | 2022-02-06 10:10 | XMS_ITS | Encounter Summary ---
:1965 Author Organization [facility] Address [address] [place] [address] Care Team Providers Name Role Phone Noreen Hills APRN ROVING MARKER Unavailable [phone] Noreen Hills APRN ROVING MARKER Primary Care Provider [phone] Kalyan Galvan Unavailable Unavailable Lashae Trevino [facility] Unavailable [phone] Eduardo Sharma MD Unavailable Marcelo Artis PA-C Unavailable [phone] Rodrigo Man PA-C Unavailable [phone] Encounter Details Date Type Department Care Team [...] How often do you attend alevism or sabianism Patient refused 08/08/2019 services? Do [...] as of this encounter Care Teams Front End Ui Developer Relationship Specialty Start Date End Date Noreen Hills PCP - General Nurse Practitioner 01/09/19 12/12/21 SEAN Haley ROVING MARKER [address] [facility] [address] [place], [place] [address] Noreen Hills Assigned PCP 06/16/18 ESAN Haley ROVING MARKER [address] [facility] [address] [place], [place] [address] Kalyan Galvan Personal Advocate & 08/08/19 Liaison (PAL) Lashae Trevino Pharmacist Pharmacist 10/14/19 12/01/20 [facility] [address] [facility] [place] [address] Eduardo Sharma MD Assigned Sleep Provider 04/02/20 05/07/21 [address] [place] [address] Marcelo Artis Assigned Musculoskeletal 08/25/20 08/20/21 MIKAYLA Nuno Provider [address] [facility] [address] [place] [address] Rodrigo Man Assigned Surgical 08/25/2011/27 MIKAYLA Lacy Provider [address] [place] [address] documented as of this encounter
--- OUTSIDE RECORDS SUMMARY | 2022-02-06 10:10 | XMS_ITS | Encounter Summary ---
:1965 Author Organization [facility] Address [address] [place] [address] Care Team Providers Name Role Phone Unavailable Primary Care Provider Unavailable Encounter Details Date Type Department Care Team Description 01/26/2021 [facility], Pain Joint (Primary AND CLINICS John Montero Dx) 1999 [facility] 1999 [place] [address] [place], [place] [phone] Social History Tobacco Use Types Packs/Day Years Used Date Smoking Tobacco: Never Assessed Sex Assigned at Date Recorded Female 11/16/2021 10:41 AM CDT documented as of this encounter Plan of Treatment Upcoming Encounters Date Type Specialty Care Team Description 03/02/2022 Appointment Sleep Medicine Chrissie Paredes M.D., M.P.H. [address] [place] [phone] (Racquel morrison) 03/03/2022 Appointment Sleep Medicine Chrissie Paredes M.D., M.P.H[facility] [address] [place] [phone] (Racquel morrison) 03/16/2022 Office Visit Neurology Chrissie Paredes M.D., M.P.H. [address] [place] [phone] (Racquel morrison) documented as of this encounter Visit Diagnoses Diagnosis Pain Joint - Primary documented in this encounter
--- OUTSIDE RECORDS SUMMARY | 2022-02-06 10:10 | XMS_ITS | Encounter Summary ---
:1965 Author Organization [place] Address [address] [place] [address] Care Team Providers Name Role Phone Noreen Hills APRN LAB TESTER Unavailable [phone] Noreen Hills APRN, CNP Primary Care Provider [phone] Kalyan Galvan Unavailable Unavailable Lashae Trevino [facility] Unavailable [phone] Eduardo Sharma MD Unavailable Marcelo Artis PA-C Unavailable [phone] Rodrigo Man PA-C Unavailable [phone] Reason for Visit Reason Onset Date Comments Medication Request 10/20/2020 Encounter Details Date Type Department Care Team Description 10/20/2020 Telephone [facility] Noreen Hills ication Request Pino Haley APRN LAB TESTER [address] [place] [address] [facility] [address] [place] [address] [place] [phone] Social History Tobacco Use Types Packs/Day Years [...] her pharmacy about this. Tatiana Marshall APRN, LAB TESTER Telephone Encounter - Lainey Wells - 10/20/2020 9:58 AM CDT The pt was calling and she was given some samples of OneTouch Verio Test Strips and Lancets and she would like an rx sent to the [facility] in [place]. Thank you. Lainey Russell on 10/20/2020 at 10:07 AM documented in this encounter Plan of Treatment Not on filedocumented as of this encounter Visit Diagnoses Not on filedocumented in this encounter Additional Health Concerns Assessment Noted Time PHQ-9 Depression Total Score: 5 03/16/2020 7:09 AM CDT documented as of this encounter Care Teams Director Of Automation Relationship Specialty Start Date End Date Noreen Hills PCP - General Nurse Practitioner 01/09/19 12/12/21 SEAN Haley LAB TESTER [address] [facility] [place] [address] Noreen Hills Assigned PCP 06/16/18 SEAN Haley LAB TESTER [address] [facility] [place] [address] Kalyan Galvan Personal Advocate & 08/08/19 Liaison (PAL) Lashae Trevino Pharmacist Pharmacist 10/14/19 12/01/20 [facility] 1440 [facility] [place] [address] Eduardo Sharma MD Assigned Sleep Provider 04/02/20 05/07/21 [address] [place] [address] Marcelo Artis Assigned Musculoskeletal 08/25/20 08/20/21 MIKAYLA Nuno Provider [address] [facility] [address] [place] [address] Rodrigo Man Assigned Surgical 08/25/2011/27 MIKAYLA Lacy Provider [address] [place] [address] documented as of this encounter
--- OUTSIDE RECORDS SUMMARY | 2022-02-06 10:10 | XMS_ITS | Encounter Summary ---
:1965 Author Organization [place] Address [address] [place] [address] Care Team Providers Name Role Phone Noreen Hills APRN, CNP Unavailable [phone] Noreen Hills APRN, CNP Primary Care Provider [phone] Kalyan Galvan Unavailable Unavailable Eduardo Sharma MD Unavailable Marcelo Artis PA-C Unavailable [phone] Reason for Visit Reason Comments Medication Refill Encounter Details Date Type Department Care Team Description 01/18/2021 Refill [facility] Noreen Hills, Medication Refill Pino ESTRADA BOILER TESTING TECHNICIAN 3305 [facility] [address] [place] [address] [address] [place] [address] [place] [address] [phone] Social History Tobacco Use Types Packs/Day Years [...] 01/20/2021 3:04 PM CDT Prescription approved per [facility] Refill Protocol. Randall Butt RN documented in this encounter Plan of Treatment Not on filedocumented as of this encounter Visit Diagnoses Diagnosis Fibromyalgia Mylagia and myositis, unspecified documented in this encounter Additional Health Concerns Assessment Noted Time PHQ-9 Depression Total Score: 7 11/10/2020 1:31 PM CDT documented as of this encounter Care Teams Jig Maker Relationship Specialty Start Date End Date Noreen Hills PCP - General Nurse Practitioner 01/09/19 12/12/21 SEAN Haley BOILER TESTING TECHNICIAN 3305 [facility] [place] [address] Noreen Hills Assigned PCP 06/16/18 SEAN Haley BOILER TESTING TECHNICIAN 3305 [facility] [place] [address] Kalyan Galvan Personal Advocate & 08/08/19 Liaison (PAL) Eduardo Sharma MD Assigned Sleep Provider 04/02/20 05/07/21 [address] [facility] 103 [place], [place] [address] Marcelo Artis Assigned Musculoskeletal 08/25/20 08/20/21 MIKAYLA Nuno Provider [address] [facility] 300 [place], [place] [address] documented as of this encounter
--- OUTSIDE RECORDS SUMMARY | 2022-02-06 10:10 | XMS_ITS | Encounter Summary ---
:1965 Author Organization [place] Address [address] [place] [address] Care Team Providers Name Role Phone Noreen Hills APRN CAKE WINDER Unavailable [phone] Noreen Hills APRN CAKE WINDER Primary Care Provider [phone] Kalyan Galvan Unavailable Unavailable Lashae Trevino [facility] Unavailable [phone] Eduardo Sharma MD Unavailable Marcelo Artis PA-C Unavailable [phone] Rodrigo Man PA-C Unavailable [phone] Encounter Details Date Type Department Care Team [...] How often do you attend gnosticist or baptism Patient refused 08/08/2019 services? Do [...] as of this encounter Care Teams Assistant Health Educator Relationship Specialty Start Date End Date Noreen Hills PCP - General Nurse Practitioner 01/09/19 12/12/21 SEAN Haley CAKE WINDER 3305 [facility] [place] [address] Noreen Hills Assigned PCP 06/16/18 SEAN Haley CAKE WINDER 3305 [facility] [place] [address] Kalyan Galvan Personal Advocate & 08/08/19 Liaison (PAL) Lashae Trevino Pharmacist Pharmacist 10/14/19 12/01/20 [facility] [address] [facility] [address] [place], [place] [id number] Eduardo Sharma MD Assigned Sleep Provider 04/02/20 05/07/21 [address] [place] [address] Marcelo Artis Assigned Musculoskeletal 08/25/20 08/20/21 MIKAYLA Nuno Provider [address] [facility] [address] [place], [place] [address] Rodrigo Man Assigned Surgical 08/25/2011/27 MIKAYLA Lacy Provider [address] [place] [address] documented as of this encounter
--- OUTSIDE RECORDS SUMMARY | 2022-02-06 10:10 | XMS_ITS | Encounter Summary ---
:1965 Author Organization [place] Address [address] [place] [address] Care Team Providers Name Role Phone Noreen Hills APRN HUMAN SERVICES ASSISTANT Unavailable [phone] Noreen Hills APRN, CNP Primary Care Provider [phone] Kalyan Galvan Unavailable Unavailable Eduardo Sharma MD Unavailable Marcelo Artis PA-C Unavailable [phone] Encounter Details Date Type Department Care Team Description 02/28/2021 [facility] Noreen Hills Eagan APRN HUMAN SERVICES ASSISTANT 3307 [facility] 3305 [facility] [address] [place] [address] [place] [address] [phone] Social History Tobacco Use Types Packs/Day Years [...] How often do you attend uatsdin or yazdanism Patient refused 08/08/2019 services? Do [...] available 3. Did she get a new show jumping instructor? Pls let us know who she wants to see and I'll place referral 4. Does she have FIT at home? If not, cigar packer and picker at lab. If so, please send in documented in this encounter Plan of Treatment Not on filedocumented as of this encounter Visit Diagnoses Not on filedocumented in this encounter Additional Health Concerns Assessment Noted Time PHQ-9 Depression Total Score: 7 11/10/2020 1:31 PM CDT documented as of this encounter Care Teams Job Placement Specialist Relationship Specialty Start Date End Date Noreen Hills PCP - General Nurse Practitioner 01/09/19 12/12/21 SEAN Haley HUMAN SERVICES ASSISTANT [address] [facility] [place] [address] Noreen Hills Assigned PCP 06/16/18 SEAN Haley HUMAN SERVICES ASSISTANT 3305 [facility] [place] [address] Kalyan Galvan Personal Advocate & 08/08/19 Liaison (PAL) Eduardo Sharma MD Assigned Sleep Provider 04/02/20 05/07/21 [address] [facility] 103 [place] [address] Marcelo Artis Assigned Musculoskeletal 08/25/20 08/20/21 MIKAYLA Nuno Provider [address] [facility] [address] [place], [place] [address] documented as of this encounter
--- OUTSIDE RECORDS SUMMARY | 2022-02-06 10:10 | XMS_ITS | Encounter Summary ---
:1965 Author Organization [place] Address [address] [place] [address] Care Team Providers Name Role Phone Noreen Hills APRN FURNACE ROOM SUPERVISOR Unavailable [phone] Noreen Hills APRN, CNP Primary Care Provider [phone] Kalyan Galvan Unavailable Unavailable Lashae Trevino [facility] Unavailable [phone] Eduardo Sharma MD Unavailable Marcelo Artis PA-C Unavailable [phone] Rodrigo Man PA-C Unavailable [phone] Encounter Details Date Type Department Care Team Description 11/16/2020 Telephone [facility] Noreen Hills Eagan APRN FURNACE ROOM SUPERVISOR [address] [facility] [address] [place] [address] [address] [place] [address] [place] [address] [phone] Social History Tobacco Use Types Packs/Day Years [...] How often do you attend gnosticism or jew Patient refused 08/08/2019 services? Do you belong to any clubs or organizations such as No 08/08/2019 gnosticism groups, Pump[employer], [employer] or athletic groups, or school groups? How [...] V - 11/16/2020 1:31 PM CDT This business [facility] [place]. Both locations have availability end of Decemberfor virtual visit (in-person at [place] location). Called and spoke with patient. Informed patient Rx has been sent to her local pharmacy. Discussed appointment scheduling with patient who is willing to do virtual visit. Patient is rescheduled for video visit on 01/03/2021 at 12:30 pm with same provider (Dr. Painting). Patient also added to wait list for sooner appointment. Provider updated. Barbara Mcdonough Associate Quality Engineer Telephone Encounter - Kavin Fitzgerald PA-C - 11/16/2020 1:15 PM CDT I sent her an rx for anti-inflammatory. It takes a few days to take effect. Can we try to get her into Rheum sooner? Her current appointment is Feb. Can we [facility] in [place]? Kavin Fitzgerald PA-C Telephone Encounter - Sheeba Oscar RN - 11/16/2020 12:57 PM CDT Called pt. She says she has taken everything OTC and it does not touch it. She was going to send [employer] message last night but could not find [...] documented as of this encounter Care Teams Oracle Etl Developer Relationship Specialty Start Date End Date Noreen Hills PCP - General Nurse Practitioner 01/09/19 12/12/21 SEAN Haley FURNACE ROOM SUPERVISOR 3305 [facility] [place] [address] Noreen Hills Assigned PCP 06/16/18 SEAN Haley FURNACE ROOM SUPERVISOR 3305 [facility] [place] [address] Kalyan Galvan Personal Advocate & 08/08/19 Liaison (PAL) Lashae Trevino Pharmacist Pharmacist 10/14/19 12/01/20 [facility] 1440 [facility] [place] [id number] Eduardo Sharma MD Assigned Sleep Provider 04/02/20 05/07/21 [address] [place] [address] Marcelo Artis Assigned Musculoskeletal 08/25/20 08/20/21 MIKAYLA Nuno Provider 360[address] [facility] [address] [place], [place] [address] Rodrigo Man Assigned Surgical 08/25/2011/27 MIKAYLA Lacy Provider [address] [place], [place] [address] documented as of this encounter
--- OUTSIDE RECORDS SUMMARY | 2022-02-06 10:10 | XMS_ITS | Encounter Summary ---
:1965 Author Organization [place] Address [address] [place] [address] Care Team Providers Name Role Phone Noreen Hills APRN LICENSED PHYSICAL THERAPIST Unavailable [phone] Noreen Hills APRN LICENSED PHYSICAL THERAPIST Primary Care Provider [phone] Reason for Visit Reason Comments Medication Refill Encounter Details Date Type Department Care Team Description 12/08/2021 Refill [facility] Noreen Hills, Medication Refill Pino ESTRADA LICENSED PHYSICAL THERAPIST 3305 [facility] [address] [place] [address] [address] [place] [address] [place] [address] [phone] Social History Tobacco Use Types Packs/Day Years [...] How often do you attend faith or episcopalian Patient refused 08/08/2019 services? Do [...] and she goes to the clinic in [place]. Please remove the pended med.Thank you. Lainey [...] documented as of this encounter Care Teams Elect Equip Maint Eng Relationship Specialty Start Date End Date Noreen Hills APRN LICENSED PHYSICAL THERAPIST PCP - General Nurse Practitioner 01/09/19 12/12/[address] [place] [address] [place] [address] Noreen Hills APRN LICENSED PHYSICAL THERAPIST Assigned PCP 06/16/[address] [place] [address] [place] [address] documented as of this encounter
--- OUTSIDE RECORDS SUMMARY | 2022-02-06 10:10 | XMS_ITS | Encounter Summary ---
:1965 Author Organization [place] Address [address] [place] [address] Care Team Providers Name Role Phone Noreen Hills APRN, CNP Unavailable [phone] Noreen Hills APRN, CNP Primary Care Provider [phone] Kalyan Galvan Unavailable Unavailable Eduardo Sharma MD Unavailable Marcelo Artis PA-C Unavailable [phone] Reason for Visit Reason Comments Medication Refill Encounter Details Date Type Department Care Team Description 01/11/2021 Refill [facility] Noreen Hills, Medication Refill Pino ESTRADA SWITCHBOARD MECHANIC 3305 [facility] [address] [place] [address] [address] [place] [address] [place] [address] [phone] Social History Tobacco Use Types Packs/Day Years [...] documented as of this encounter Care Teams Seismograph Chief Relationship Specialty Start Date End Date Noreen Hills PCP - General Nurse Practitioner 01/09/19 12/12/21 SEAN Haley SWITCHBOARD MECHANIC 3305 [facility] [place] [address] Noreen Hills Assigned PCP 06/16/18 SEAN aHley SWITCHBOARD MECHANIC 3305 [facility] [place] [address] Kalyan Galvan Personal Advocate & 08/08/19 Liaison (PAL) Eduardo Sharma MD Assigned Sleep Provider 04/02/20 05/07/21 [address] [place] [address] Marcelo Artis Assigned Musculoskeletal 08/25/20 08/20/21 MIKAYLA Nuno Provider [address] [address] documented as of this encounter
--- OUTSIDE RECORDS SUMMARY | 2022-02-06 10:10 | XMS_ITS | Encounter Summary ---
:1965 Author Organization [place] Address [address] [place] [address] Care Team Providers Name Role Phone Noreen Hills APRN, CNP Unavailable [phone] Noreen Hills APRN, CNP Primary Care Provider [phone] Marcelo Artis PA-C Unavailable [phone] Reason for Visit Reason Comments Medication Refill Encounter Details Date Type Department Care Team Description 08/06/2021 Refill [facility] Noreen Hills Medication Refill Pino ESTRADA GRAPPLE CREW LEADER [address] [place] [address] [place] [address] [phone] Social History Tobacco Use Types Packs/Day Years [...] How often do you attend zoroastrianism or uatsdin Patient refused 08/08/2019 services? Do [...] 08/08/2021 2:33 PM CST Prescription approved per [facility] Refill Protocol. Marisa Panda RN ING ANALYST documented in this encounter Plan of Treatment Not on filedocumented as of this encounter Visit Diagnoses Diagnosis Gastroesophageal reflux disease without esophagitis Esophageal reflux documented in this encounter Additional Health Concerns Assessment Noted Time PHQ-9 Depression Total Score: 7 11/10/2020 1:31 PM CDT documented as of this encounter Care Teams Child Watch Attendant Relationship Specialty Start Date End Date Noreen Hills PCP - General Nurse Practitioner 01/09/19 12/12/21 SEAN Haley GRAPPLE CREW LEADER 3305 [facility] [place] [address] Noreen Hills Assigned PCP 06/16/18 SEAN Haley GRAPPLE CREW LEADER 3305 [facility] [place] [address] Marcelo Artis Assigned Musculoskeletal 08/25/20 08/20/21 MIKAYLA Nuno Provider [address] [address] documented as of this encounter
--- OUTSIDE RECORDS SUMMARY | 2022-02-06 10:10 | XMS_ITS | Encounter Summary ---
:1965 Author Organization [place] Address [address] [place] [address] Care Team Providers Name Role Phone Noreen Hills APRN, CNP Unavailable [phone] Noreen Hills APRN, CNP Primary Care Provider [phone] Marcelo Artis PA-C Unavailable [phone] Reason for Visit Reason Onset Date Comments Panel Management 07/25/2021 phys, pap, mammo, co dk, diab, PHQ9, HELGA, imm Encounter Details Date Type Department Care Team Description 07/25/2021 Telephone [facility] Noreen Hills Panel Miriam nash (phys, Clinic Pino Haley APRN CNP pap, mammo, colon, 3305 [facility] 3305 [facility] diab, PHQ9, HELGA, imm) [facility] [address] [place] [address] [place] [address] [phone] Social History Tobacco Use Types Packs/Day Years [...] review: None Christi Panda CMA Chart closed. INSPECTOR Telephone Encounter - Christi Panda MA - 07/28/2021 3:42 PM CST Patient Quality Outreach 2nd Attempt Patient is due for the following: Physical - Due after 08/08/20 And all due below NEXT STEPS: Schedule a yearly physical, mammogram, colonoscopy Type of outreach: Sent letter.+ PHQ9/HELGA Questions for provider review: None Christi Panda MA Chart routed to Care Team. INSPECTOR Telephone Encounter - Christi Panda MA - [...] physical, mammogram, colonoscopy Type of outreach: Sent Joustt message.+ PHQ9/HELGA Questions for provider review: None Christi Panda MA Chart routed to Care Team. INSPECTOR documented in this encounter Plan of Treatment Not on filedocumented as of this encounter Visit Diagnoses Not on filedocumented in this encounter Additional Health Concerns Assessment Noted Time PHQ-9 Depression Total Score: 7 11/10/2020 1:31 PM CDT documented as of this encounter Care Teams Carton Folder Relationship Specialty Start Date End Date Noreen Hills PCP - General Nurse Practitioner 01/09/19 12/12/21 SEAN Haley EXECUTIVE MEETING MANAGER [address] [facility] [address] [place], [place] [address] Noreen Hills Assigned PCP 06/16/18 SEAN Haley EXECUTIVE MEETING MANAGER [address] [facility] [address] [place], [place] [address] Marcelo Artis Assigned Musculoskeletal 08/25/20 08/20/21 MIKAYLA Nuno Provider [address] [address] documented as of this encounter
--- OUTSIDE RECORDS SUMMARY | 2022-02-06 10:10 | XMS_ITS | Encounter Summary ---
:1965 Author Organization [place] Address [address] [place] [address] Care Team Providers Name Role Phone Noreen Hills APRN, CNP Unavailable [phone] Noreen Hills APRN, CNP Primary Care Provider [phone] Kalyan Galvan Unavailable Unavailable Eduardo Sharma MD Unavailable Marcelo Artis PA-C Unavailable [phone] Reason for Visit Reason Comments Medication Refill Encounter Details Date Type Department Care Team Description 01/06/2021 Refill [facility] Noreen Hills, Medication Refill Pino ESTRADA OIL PIT ATTENDANT 3305 [facility] [address] [place] [address] [address] [place] [address] [place] [address] [phone] Social History Tobacco Use Types Packs/Day Years [...] How often do you attend pentecostal or buddhism Patient refused 08/08/2019 services? Do [...] documented as of this encounter Care Teams Coremaking Machine Setter Relationship Specialty Start Date End Date Noreen Hills PCP - General Nurse Practitioner 01/09/19 12/12/21 SEAN Haley OIL PIT ATTENDANT [address] [facility] [place] [address] Noreen Hills Assigned PCP 06/16/18 SEAN Haley OIL PIT ATTENDANT 3305 [facility] [place] [address] Kalyan Galvan Personal Advocate & 08/08/19 Liaison (PAL) Eduardo Sharma MD Assigned Sleep Provider 04/02/20 05/07/21 [address] [facility] 103 [place], [place] [address] Marcelo Artis Assigned Musculoskeletal 08/25/20 08/20/21 MIKAYLA Nuno Provider [address] [facility] [address] [place], [place] [address] documented as of this encounter
--- OUTSIDE RECORDS SUMMARY | 2022-02-06 10:10 | XMS_ITS | Encounter Summary ---
:1965 Author Organization [place] Address [address] [place] [address] Care Team Providers Name Role Phone Noreen Hills APRN DRAMATIC TEACHER Unavailable [phone] Noreen Hills APRN DRAMATIC TEACHER Primary Care Provider [phone] Kalyan Galvan Unavailable Unavailable L[facility]ae Trevino [facility] Unavailable [phone] Eduardo Sharma MD Unavailable Marcelo Artis PA-C Unavailable [phone] Rodrigo Man PA-C Unavailable [phone] Encounter Details Date Type Department Care Team [...] How often do you attend mandaen or quaker Patient refused 08/08/2019 services? Do [...] documented as of this encounter Care Teams Laboratory Mechanical Technician Relationship Specialty Start Date End Date Noreen Hills PCP - General Nurse Practitioner 01/09/19 12/12/21 SEAN Haley DRAMATIC TEACHER [address] [place] [address] Noreen Hills Assigned PCP 06/16/18 SEAN Haley DRAMATIC TEACHER 3305 [facility] [place] [address] Kalyan Galvan Personal Advocate & 08/08/19 Liaison (PAL) Lashae Trevino Pharmacist Pharmacist 10/14/19 12/01/20 [facility] [address] [facility] [address] [place], [place] [id number] Eduardo Sharma MD Assigned Sleep Provider 04/02/20 05/07/[address] [place] [place] [address] Marcelo Artis Assigned Musculoskeletal 08/25/20 08/20/21 MIKAYLA Nuno Provider [address] [facility] 300 [place], [place] [address] Rodrigo Man Assigned Surgical 08/25/2011/27 MIKAYLA Lacy Provider [address] [place] [address] documented as of this encounter
--- OUTSIDE RECORDS SUMMARY | 2022-02-06 10:10 | XMS_ITS | Encounter Summary ---
:1965 Author Organization [place] Address [address] [place] [address] Care Team Providers Name Role Phone Noreen Hills APRN, CNP Unavailable [phone] Noreen Hills APRN, CNP Primary Care Provider [phone] Kalyan Galvan Unavailable Unavailable Eduardo Sharma MD Unavailable Marcelo Artis PA-C Unavailable [phone] Reason for Visit Reason Onset Date Comments Panel Management 12/02/2020 Encounter Details Date Type Department Care Team Description 12/02/[address] [facility] Lashae Trevino Panel Management [facility] [address] [place] [address] [address] [place] [address] (Work) [phone] Social History Tobacco Use Types Packs/Day Years [...] this encounter Progress Notes Lashae Trevino [facility] - 12/02/2020 3:44 PM CDT Have not [...] documented as of this encounter Care Teams Ceramic Tile Setter Relationship Specialty Start Date End Date Noreen Hills PCP - General Nurse Practitioner 01/09/19 12/12/21 SEAN Haley HARBOR DEPARTMENT MANAGER 3305 [facility] [place] [address] Noreen Hills Assigned PCP 06/16/18 SEAN Haley HARBOR DEPARTMENT MANAGER 3305 [facility] [place] [address] Kalyan Galvan Personal Advocate & 08/08/19 Liaison (PAL) Eduardo Sharma MD Assigned Sleep Provider 04/02/20 05/07/21 [address] [place], [place] [address] Marcelo Artis Assigned Musculoskeletal 08/25/20 08/20/21 MIKAYLA Nuno Provider [address] [facility] [address] [place] [address] documented as of this encounter
--- OUTSIDE RECORDS SUMMARY | 2022-02-06 10:11 | XMS_ITS | Encounter Summary ---
:1965 Author Organization [place] Address [address] [place] [address] Care Team Providers Name Role Phone Noreen Hills APRN WEB CONTENT EXECUTIVE Unavailable [phone] Noreen Hills APRN WEB CONTENT EXECUTIVE Primary Care Provider [phone] Kalyan Galvan Unavailable Unavailable Lashae Trevino [facility] Unavailable [phone] Encounter Details Date Type Department Care Team Description 01/12/2020 Orders Only [facility] care maintenance [place] [facility] [address] [facility] [address] [place] [address] Social [...] How often do you attend yarsani or islam Patient refused 08/08/2019 services? Do [...] Time Signature Occult Blood Negative NEG^Negati 01/18/2020 [facility] FIT ve 4:19 PM CDT [facility] Specimen Anatomical Collection Method Collection Time Receive d Time (Source) Location / / Volume Laterality Stool specimen 01/12/2020 8:00 AM 020 1:16 (specimen) CDT PM CDT Noreen Hills APRN WEB CONTENT EXECUTIVE LAB - STOOLS ORDERABLES Performing Organization Address City/State/ZIP Code Phon e Number [facility] [address] [place] [address] [facility] documented in this encounter Visit Diagnoses Diagnosis Health care maintenance Unspecified general medical examination documented in this encounter Additional Health Concerns Assessment Noted Time PHQ-9 Depression Total Score: 9 08/09/2019 7:03 AM CIGARETTE PAPER TESTER documented as of this encounter Care Teams Physician General Internal Medicine Relationship Specialty Start Date End Date Noreen Hills PCP - General Nurse Practitioner 01/09/19 12/12/21 SEAN Haley WEB CONTENT EXECUTIVE [address] [facility] [place] [address] Noreen Hills Assigned PCP 06/16/18 SEAN Haley WEB CONTENT EXECUTIVE [address] [facility] [place] [phone] Kalyan Galvan Personal Advocate & 08/08/19 Liaison (PAL) Lashae Trevino Pharmacist Pharmacist 10/14/19 12/01/20 [facility] [address] [facility] [place] [id number] documented as of this encounter
--- OUTSIDE RECORDS SUMMARY | 2022-02-06 10:11 | XMS_ITS | Encounter Summary ---
:1965 Author Organization [place] Address [address] [place] [address] Care Team Providers Name Role Phone Noreen Hills APRN INTEGRATION ENGINEER Unavailable [phone] Noreen Hills APRN INTEGRATION ENGINEER Primary Care Provider [phone] Kalyan Galvan Unavailable Unavailable Lashae Trevino [facility] Unavailable [phone] Encounter Details Date Type Department Care Team Description 03/09/2020 Telephone [employer] Marcelo Artis, [facility] MIKAYLA Golden [address] [facility] [address] [facility] [address] [place] [address] [place], [place] [id number] [phone] Social History Tobacco Use Types Packs/Day Years [...] cardboard with a scissors due to discomfort. Certification Engineer informed Megan that swelling is normal after surgery, and make take ~6 weeks to fully dissipate. She approved of verbiage for updated work letter to say the following OK to return to work with no restrictions on 03/11/20. If she is unable to tolerate her normal work duties and she will follow up with my office for reevaluation. Patient will access letter via Bubbleball. Latisha Morales ATC Telephone Encounter - Kleber [...] Depression Total Score: 9 08/09/2019 7:03 AM DRY HOUSE OPERATOR documented as of this encounter Care Teams Blending Kettle Tender Relationship Specialty Start Date End Date Noreen Hills PCP - General Nurse Practitioner 01/09/19 12/12/21 SEAN Haley INTEGRATION ENGINEER [address] [facility] [place] [address] Noreen Hills Assigned PCP 06/16/18 SEAN Haley INTEGRATION ENGINEER [address] [facility] [place] [address] Kalyan Galvan Personal Advocate & 08/08/19 Liaison (PAL) Lashae Trevino Pharmacist Pharmacist 10/14/19 12/01/20 Kiran [facility] [address] [place] [address] documented as of this encounter
--- OUTSIDE RECORDS SUMMARY | 2022-02-06 10:11 | XMS_ITS | Encounter Summary ---
:1965 Author Organization [place] Address [address] [place] [address] Care Team Providers Name Role Phone Noreen Hills APRN FEDERAL LAW CLERK Unavailable [phone] Noreen Hills APRN FEDERAL LAW CLERK Primary Care Provider [phone] Kalyan Galvan Unavailable Unavailable Lashae Trevino [facility] Unavailable [phone] Reason for Visit Reason Comments Medication Refill Encounter Details Date Type Department Care Team Description 02/05/2020 Refill [facility] Noreen Hills, Medication Refill [place]STRADA FEDERAL LAW CLERK [address] [facility] [address] [place] [address] [address] [place] [address] [place] [address] [phone] Social History Tobacco Use Types Packs/Day Years [...] How often do you attend restoration or scientology Patient refused 08/08/2019 services? Do [...] encounter Miscellaneous Notes Telephone Encounter - Noreen Hilsl APRN CNP - 02/05/2020 12:31 PM CDT [...] Depression Total Score: 9 08/09/2019 7:03 AM ANTENNA MACHINE OPERATOR documented as of this encounter Care Teams Hay Baler Relationship Specialty Start Date End Date Noreen Hills PCP - General Nurse Practitioner 01/09/19 12/12/21 SEAN Haley FEDERAL LAW CLERK [address] [facility] [place] [phone] Noreen Hills Assigned PCP 06/16/18 SEAN Haley FEDERAL LAW CLERK [address] [facility] [place] [address] Kalyan Galvan Personal Advocate & 08/08/19 Liaison (PAL) Lashae Trevino Pharmacist Pharmacist 10/14/19 12/01/20 [facility] [address] [facility] [place] [id number] documented as of this encounter
--- OUTSIDE RECORDS SUMMARY | 2022-02-06 10:11 | XMS_ITS | Encounter Summary ---
:1965 Author Organization [place] Address [address] [place] [address] Care Team Providers Name Role Phone Noreen Hills APRN PLASTICS SHEET FINISHING PRESS OPERATOR Unavailable [phone] Noreen Hills APRN PLASTICS SHEET FINISHING PRESS OPERATOR Primary Care Provider [phone] Kalyan Galvan Unavailable Unavailable Lashae Trevino [facility] Unavailable [phone] Eduardo Sharma MD Unavailable Rios Monteiro MD Unavailable Marcelo Artis PA-C Unavailable [phone] Rodrigo Man PA-C Unavailable [phone] Reason for Visit Reason Comments Medication Refill Encounter Details Date Type Department Care Team Description 07/10/2020 Refill [facility] Noreen Hills, Medication Refill [place] SEWAGE TREATMENT PLANT OPERATOR PLASTICS SHEET FINISHING PRESS OPERATOR [address] [facility] [address] [place] [address] [address] [place] [address] [place] [address] [phone] Social History Tobacco Use Types Packs/Day Years [...] How often do you attend confucianism or taoist Patient refused 08/08/2019 services? Do [...] RN on 07/13/2020 at 11:11 AM L ROLLER Telephone Encounter - Lainey Wells - 07/12/2020 2:22 PM CST The pt called back and she says that she takes anywhere from 8-10 a month. Lainey Wells on 07/12/2020 at 2:25 PM L ROLLER Telephone Encounter - Lainey Wells - 07/12/2020 10:59 AM CST 1st attempt l/m. Lainey Wells on 07/12/2020 at 10:59 AM L ROLLER Telephone Encounter - Desirae Champagne RN - 07/12/2020 10:02 AM CST Please call patient and see how many doses of sumatriptan patient has used in the past month. Shouldbe using 8 doses or fewer per month. Desirae Champagne RN on 07/12/2020 at 10:07 AM L ROLLER documented in this encounter Plan of [...] as of this encounter Care Teams Automation Controls Specialist Relationship Specialty Start Date End Date Noreen Hills PCP - General Nurse Practitioner 01/09/19 12/12/21 SEAN Haley PLASTICS SHEET FINISHING PRESS OPERATOR [address] [facility] [address] Noreen Hills Assigned PCP 06/16/18 SEAN Haley PLASTICS SHEET FINISHING PRESS OPERATOR [address] [facility] [address] Kalyan Galvan Personal Advocate & 08/08/19 Liaison (PAL) Lashae Trevino Pharmacist Pharmacist 10/14/19 12/01/20 [facility] [address] [facility] [address] [place], [place] [id number] Eduardo Sharma MD Assigned Sleep Provider 04/02/20 05/07/21 [address] [place] [address] Rios Monteiro MD Assigned Musculoskeletal 04/02/20 08/24/[id number] Provider [address] [place] [address] Marcelo Artis Assigned Musculoskeletal 08/25/20 08/20/21 MIKAYLA [place] Provider [address] [place] [address] Rodrigo Man Assigned Surgical 08/25/2011/27 MIKAYLA Lacy Provider [address] [place] [address] documented as of this encounter
--- OUTSIDE RECORDS SUMMARY | 2022-02-06 10:11 | XMS_ITS | Encounter Summary ---
:1965 Author Organization [place] Address [facility] [place] [address] Care Team Providers Name Role Phone Pankaj Woods APRN, CNP Unavailable [phone] Pankaj Woods APRN, CNP Primary Care Provider [phone] Kalyan Galvan Unavailable Unavailable Lashae Trevino [facility] Unavailable [phone] Reason for Referral Diagnostic Imaging CT Scan (Routine) - Closed Specialty Diagnoses / Procedures Referred By Contact Refer red To Contact Diagnoses Chest pain, unspecified type Pankaj Woods, Procedures CT Angiogram coronary artery [facility] [address] [place] [id number] Referral ID Status Reason Start Date Expiration Date Visits Requ ested Visits Authorized [id number] Closed 03/16/2020 03/16/2021 1 1 Encounter Details Date Type Department Care Team Description 03/16/2020 E-Consult [facility] Heart Ian Hamilton Chest pain, unspecified Clinic Moncho Cade MD type (Primary Dx) [address] [facility] [place] [address] [place] [address] Social History Tobacco Use [...] How often do you attend buddhism or taoist Patient refused 08/08/2019 services? Do [...] as of this encounter Care Teams Body Design Checker Relationship Specialty Start Date End Date Pankaj Woods PCP - General Nurse Practitioner 01/09/19 12/12/21 SEAN Haley SPLUNK ARCHITECT [address] [facility] [place] [id number] Pankaj Woods Assigned PCP 06/16/18 SEAN Haley SPLUNK ARCHITECT [address] [facility] [place] [id number] Kalyan Galvan Personal Advocate & 08/08/19 Liaison (PAL) Lashae Trevino Pharmacist Pharmacist 10/14/19 12/01/20 Kiran, [facility] [address] [facility] [place] [phone] documented as of this encounter
--- OUTSIDE RECORDS SUMMARY | 2022-02-06 10:11 | XMS_ITS | Encounter Summary ---
:1965 Author Organization [place] Address [address] [place] [address] Care Team Providers Name Role Phone Noreen Hills APRN REHABILITATOR Unavailable [phone] Noreen Hills APRN REHABILITATOR Primary Care Provider [phone] Kalyan Galvan Unavailable Unavailable Lashae Trevino [facility] Unavailable [phone] Eduardo Sharma MD Unavailable Marcelo Artis PA-C Unavailable [phone] Rodrigo Man PA-C Unavailable [phone] Reason for Visit Reason Comments Urgent Care Cough cough/sore throat Encounter Details Date Type Department Care Team Description 08/25/2020 Office Visit [facility] nder investigation for COVID-19 (Primary Dx); Urgent Care [place] PA-C Sore throat; [address] [place] [address] [facility] [address] [place] [address] [place] [address] Social History Tobacco Use [...] How often do you attend amish or amish Patient refused 08/08/2019 services? Do you belong to any clubs or organizations such as No 08/08/2019 amish groups, unions, fraGild or athletic groups, or school groups? How [...] a bandana, T-shirt, or other cloth. The [facility] has instructions on how to make [...] that contain caffeine or alcohol. ?? Taking vcjg-dpn-sadgean (OTC) medicine to reduce pain and fever. [...] provider with permission from the publisher. ?? [phone] The [employer]. [address] [place] [address], [place] [id number]. All rights reserved. This information is not [...] secretions in the nose and lungs. ?? Xtlq-pkd-vagktbs cold medicines will not shorten the length of time you???re sick, but they may be helpful for the following symptoms: cough, sore throat, and nasal and sinus congestion. If you takeprescription medicines, ask your healthcare provider or pharmacist which klsa-jik-yzoxnmq medicines are safe to use. (Note: Don't [...] it goes along with a muffled voice [employer] last reviewed this educational content on 11/09/2017 ?? [phone] The [employer]. All rights reserved. This information is not [...] in??1/2 cup of warm water ?? An ryeh-ojf-bjpyncv anesthetic gargle Use medicine for more relief Zpib-xkl-anahrto medicine can reduce sore throat symptoms. Ask [...] dizzy or faint ?? Feeling of doom [employer] last reviewed this educational content on 02/09/2019 ?? [phone] The [employer]. All rights reserved. This information is not [...] ??? fluticasone (FLONASE) 50 MCG/ACT nasal spray [place] 1-2 sprays into both nostrils daily 16 [...] the Simplexa COVID-19 Direct Assay on the [employer] Liaison MDX instrument. Additional information about this [...] A PCR Not Detected NDET^Not Detected ASSESSMENT: (Z31.144) Person under investigation for COVID-19 (primary encounter [...] a bandana, T-shirt, or other cloth. The [facility] has instructions on how to make [...] that contain caffeine or alcohol. ?? Taking qvmz-lrc-jnefxkq (OTC) medicine to reduce pain and fever. [...] provider with permission from the publisher. ?? [phone] The [employer]. [address] [place], [place] [address] [place] [address]. All rights reserved. This information is not [...] secretions in the nose and lungs. ?? Slnz-rin-iqpvmqx cold medicines will not shorten the length of time you???re sick, but they may be helpful for the following symptoms: cough, sore throat, and nasal and sinus congestion. If you takeprescription medicines, ask your healthcare provider or pharmacist which ofhk-fce-radigzm medicines are safe to use. (Note: Don't [...] it goes along with a muffled voice [employer] last reviewed this educational content on 11/09/2017 ?? [phone] The [employer]. All rights reserved. This information is not [...] in??1/2 cup of warm water ?? An emwz-rnj-cvxlokr anesthetic gargle Use medicine for more relief Rcbg-cxz-smtcoiv medicine can reduce sore throat symptoms. Ask [...] dizzy or faint ?? Feeling of doom [employer] last reviewed this educational content on 02/09/2019 ?? [phone] The [employer]. All rights reserved. This information is not [...] (Coronavirus) by PCR (08/25/2020 7:31 PM CDT) [facility] Method Time Signature SARS-CoV-2 Nasopharyngeal 08/26/2020 INFECTIOUS Virus 3:23 PM CDT DISEASES Specimen DIAGNOSTIC Source LABORATORY, [facility] SARS-CoV-2 NEGATIVE 08/26/2020 INFECTIOUS PCR Result 3:23 PM CDT DISEASES DIAGNOSTIC LABORATORY, [facility] Comment: SARS-CoV2 (COVID-19) RNA not de tected, presumed negative. SARS-CoV-2 PCR Testing was performed using the Simplexa COVID-19 Direct Assay on the [employer] Liaison MDX 08/26/2020 3:23 PM INFECTIOUS DISEASES Comment instrument. Additional info rmation about this Emergency Use Authorization (EUA) assay can CDT DIAGNOSTIC be found via the Lab Guide. L ABORATORY, [facility] Comment: This test should be ordered [...] COVID-19. This test was validated by the [facility] Infectious Diseases Diagnostic Laboratory. This laboratory [...] Phon e Number INFECTIOUS DISEASES DIAGNOSTIC [address] [facility] [address] LABORATORY, [facility] Group A Streptococcus PCR Throat Swab (08/25/2020 7:31 PM CDT) [facility] Method Time Signature Specimen Throat 08/25/2020 [place] Description 7:48 PM CDT [facility] Strep Group A Not Detected NDET^Not 08/26/2020 [place] O F PCR Detected 2:08 PM CDT [facility] Comment: Group A Streptococcus DNA is not detecte d. FDA approved assay performed using [employer] GeneXpert real-time PCR. Specimen Anatomical Collection Method Collection Time Receive d Time (Source) Location / / Volume Laterality Specimen from 08/25/2020 7:31 PM 08/26/19 21 7:36 throat CDT PM CDT (specimen) Manuel Archer MD LAB - MICRO GENERAL ORDERABL ES Performing Organization Address City/State/ZIP Code Phon e Number [address] [address] [facility] [place] [address] [place] [address] Symptomatic COVID-19 Virus (Coronavirus) by PCR (08/25/2020 7:31 PM CDT) Component Value Ref Test Analysis Performed At [facility] Range Method Time Signature COVID-19 Nasopharyngeal 08/25/2020 [place] Virus PCR to 7:40 PM CDT [facility] [place] [facility] [place] - Source COVID-19 Test received-See 08/26/2020 INFECTIOUS Virus PCR to reflex to IDDL 1:00 PM CDT DISEASES [facility] [place] - test SARS CoV2 DIAGNOSTIC Result (COVID-19) Virus LABORATORY, RT-PCR [facility] Specimen (Source) Anatomical Collection Method Collection Time Re ceived Time Location / / Volume Laterality Specimen from 08/25/2020 7:31 08/25/2020 nasopharyngeal PM CDT 7:36 PM CDT structure (specimen) Manuel Archer MD LAB - MICRO GENERAL ORDERABL ES Performing Organization Address City/[facility]/ZIP Code Phon e Number INFECTIOUS DISEASES DIAGNOSTIC [address] [place] [address] LABORATORY, [address] [place] [address] [phone] Streptococcus A Rapid Scr w Reflx to PCR (08/25/2020 7:31 PM CDT) [facility] Method Time Signature Strep Specimen Throat 08/25/2020 [place] Description 7:34 PM CDT [facility] Streptococcus Negative NEG^Negat 08/25/2020 [place] Group A Rapid jaki 7:48 PM CDT [facility] Screen Comment: No Group A streptococcal antigen detecte d by immunoassay. Confirmatory testing in progress. Specimen Anatomical Collection Method Collection Time Receive d Time (Source) Location / / Volume Laterality Specimen from 08/25/2020 7:31 PM 08/26/19 21 7:36 throat CDT PM CDT (specimen) Manuel Archer MD LAB - MICRO GENERAL ORDERABL ES Performing Organization Address City/[facility]/ZIP Code Phon e Number [address] [address] [phone] documented in this encounter Visit Diagnoses Diagnosis Person under investigation for COVID-19 - Primary Sore throat Acute pharyngitis Cough documented in this encounter Additional Health Concerns Infection Onset Date Last Indicated Resolved Time Rule Out COVID-19 08/25/2020 08/25/2020 08/26/2020 3:2 3 PM CDT Assessment Noted Time PHQ-9 Depression Total Score: 5 03/16/2020 7:09 AM CDT documented as of this encounter Care Teams Bumper Operator Relationship Specialty Start Date End Date Noreen Hills PCP - General Nurse Practitioner 01/09/19 12/12/21 SEAN Haley REHABILITATOR [address] [facility] [place] [address] Noreen Hills Assigned PCP 06/16/18 SEAN Haley REHABILITATOR [address] [facility] [place] [address] Kalyan Galvan Personal Advocate & 08/08/19 Liaison (PAL) Lashae [place] Pharmacist Pharmacist 10/14/19 12/01/20 [facility] [address] [facility] [place] [address] Eduardo Sharma MD Assigned Sleep Provider 04/02/20 05/07/21 [address] [place] [id number] Marcelo Artis Assigned Musculoskeletal 08/25/20 08/20/21 MIKAYLA [place] Provider [address] [facility] [address] [place], [place] [address] Rodrigo Man Assigned Surgical 08/25/2011/27 MIKAYLA Lacy Provider [address] [place] [id number] documented as of this encounter
--- OUTSIDE RECORDS SUMMARY | 2022-02-06 10:11 | XMS_ITS | Encounter Summary ---
:1965 Author Organization [place] Address [address] [place] [address] Care Team Providers Name Role Phone Noreen Hills APRN ANDROID DEVELOPER Unavailable [phone] Noreen Hills APRN ANDROID DEVELOPER Primary Care Provider [phone] Kalyan Galvan Unavailable Unavailable Lashae Trevino [facility] Unavailable [phone] Encounter Details Date Type Department Care [...] How often do you attend adventist or nondenominational Patient refused 08/08/2019 services? Do [...] Depression Total Score: 9 08/09/2019 7:03 AM LAST TRIMMER documented as of this encounter Care Teams Elementary Instructional Coach Relationship Specialty Start Date End Date Noreen Hills PCP - General Nurse Practitioner 01/09/19 12/12/21 SEAN Haley ANDROID DEVELOPER [address] [facility] [address] [place], [place] [address] JeanaNoreen girard PCP 06/16/18 SEAN Haley ANDROID DEVELOPER [address] [facility] [address] [place], [place] [address] Kalyan Galvan Personal Advocate & 08/08/19 Liaison (PAL) Lashae [place] Pharmacist Pharmacist 10/14/19 12/01/[facility] [address] [facility] [address] [place], [place] [address] documented as of this encounter
--- OUTSIDE RECORDS SUMMARY | 2022-02-06 10:11 | XMS_ITS | Encounter Summary ---
:1965 Author Organization [place] Address [address] [place] [address] Care Team Providers Name Role Phone Noreen Hills APRN GROCERY CLERK SELLING Unavailable [phone] Noreen Hills APRN GROCERY CLERK SELLING Primary Care Provider [phone] Kalyan Galvan Unavailable Unavailable Lashae Trevino [facility] Unavailable [phone] Encounter Details Date Type Department Care Team Description 01/13/2020 Orders Only [facility] Typ e 2 diabetes mellitus [place] [facility] with complication, without [address] [facility] ng-term current use of Drive insulin (H) [...] How often do you attend evangelical or jain Patient refused 08/08/2019 services? Do [...] 6.1 (H) 0 - 5.6 % 01/13/2020 [place] 9:27 AM CDT [facility] Comment: Normal <5.7% Prediabetes 5.7-6.4% ??Diab etes 6.5% or higher - adopted from ADA consensus guidelines. Specimen Anatomical Collection Method Collection Time Receive d Time (Source) Location / / Volume Laterality Blood specimen 01/13/2020 8:55 AM 020 8:56 (specimen) CDT AM CDT Noreen Hills APRN GROCERY CLERK SELLING LAB - BLOOD ORDERABLES Performing Organization Address City/State/ZIP Code Phon e Number [facility] [address] [facility] [place] [address] documented in this encounter Visit Diagnoses Diagnosis Type 2 diabetes mellitus with complicati on, without long-term current use of insulin (H) documented in this encounter Additional Health Concerns Assessment Noted Time PHQ-9 Depression Total Score: 9 08/09/2019 7:03 AM SUPERVISOR TICKET SALES documented as of this encounter Care Teams Resident Director Relationship Specialty Start Date End Date Noreen Hills PCP - General Nurse Practitioner 01/09/19 12/12/21 SEAN Haley GROCERY CLERK SELLING [address] [facility] [place] [address] Noreen Hills Assigned PCP 06/16/18 SEAN Haley GROCERY CLERK SELLING [address] [facility] [place] [address] Kalyan Galvan Personal Advocate & 08/08/19 Liaison (PAL) Lashae Tre[place]ino Pharmacist Pharmacist 10/14/19 12/01/20 [facility] [address] [facility] [place] [address] documented as of this encounter
--- OUTSIDE RECORDS SUMMARY | 2022-02-06 10:11 | XMS_ITS | Encounter Summary ---
:1965 Author Organization [place] Address [address] [place] [address] Care Team Providers Name Role Phone Noreen Hills APRN TYPIST Unavailable [phone] Noreen Hills APRN TYPIST Primary Care Provider [phone] Kalyan Galvan Unavailable Unavailable Lashae Trevino [facility] Unavailable [phone] Encounter Details Date Type Department Care Team Description 01/13/2020 Telephone [facility] Noreen Hills Eagan APRN TYPIST [address]305 [facility] 3305 [facility] [address] [place] [address] [place] [address] [phone] Social History Tobacco Use Types Packs/Day Years [...] AM CDT Let pt know she can machine operator hop picker anytime. Edel Mosqueda MA Telephone Encounter - Noreen Hills APRN CNP - 01/13/2020 9:56 AM CDT Please call pt to schedule lab visit to machine operator hop picker FIT documented in this encounter Plan of Treatment Not on filedocumented as of this encounter Visit Diagnoses Diagnosis Special screening for malignant neoplasm s, colon - Primary documented in this encounter Additional Health Concerns Assessment Noted Time PHQ-9 Depression Total Score: 9 08/09/2019 7:03 AM OFFICE SUPPORT SPECIALIST documented as of this encounter Care Teams Hospice Clinical Marketer Relationship Specialty Start Date End Date Noreen Hills PCP - General Nurse Practitioner 01/09/19 12/12/21 SEAN Haley CNP [address]305 [facility] [place] [address] Noreen Hills Assigned PCP 06/16/18 SEAN Haley CNP [address] [facility] [place] [address] Kalyan Galvan Personal Advocate & 08/08/19 Liaison (PAL) Lashae Trevino Pharmacist Pharmacist 10/14/19 12/01/20 [facility] [address] [place] [address] [place] [address] documented as of this encounter
--- OUTSIDE RECORDS SUMMARY | 2022-02-06 10:11 | XMS_ITS | Encounter Summary ---
:1965 Author Organization [place] Address [address] [place] [address] Care Team Providers Name Role Phone Noreen Hills APRN RUBBER TIRE AND TUBES SUPERVISOR Unavailable [phone] Noreen Hills APRN RUBBER TIRE AND TUBES SUPERVISOR Primary Care Provider [phone] Kalyan Galvan Unavailable Unavailable Lashae Trevino [facility] Unavailable [phone] Encounter Details Date Type Department Care [...] How often do you attend samaritan or presybeterian Patient refused 08/08/2019 services? Do [...] documented as of this encounter Care Teams Dispatcher Tow Truck Relationship Specialty Start Date End Date Noreen Hills PCP - General Nurse Practitioner 01/09/19 12/12/21 SEAN Haley RUBBER TIRE AND TUBES SUPERVISOR [address] [facility] [address] [place], [place] [address] Noreen Hills PCP 06/16/18 SEAN Haley RUBBER TIRE AND TUBES SUPERVISOR [address] [facility] [place] [address] Kalyan Galvan Personal Advocate & 08/08/19 Liaison (PAL) Lashae Trevino Pharmacist Pharmacist 10/14/19 12/01/20 [facility] [address] [place] [place] [address] documented as of this encounter
--- OUTSIDE RECORDS SUMMARY | 2022-02-06 10:11 | XMS_ITS | Encounter Summary ---
:1965 Author Organization [place] Address [address] [place] [address] Care Team Providers Name Role Phone Noreen Hills APRN MANUFACTURER AGENT Unavailable [phone] Noreen Hills APRN MANUFACTURER AGENT Primary Care Provider [phone] Kalyan Galvan Unavailable Unavailable Lashae Trevino [facility] Unavailable [phone] Eduardo Sharma MD Unavailable Rios Monteiro MD Unavailable Reason for Visit Reason Comments Other Entered automatically based on patient selection in [employer]. Encounter Details Date Type Department Care Team Description 07/16/2020 E-Visit [facility] Tatiana [place] NP Other (Entered Clinic [address] automatically based on [address] [place] [address] DR tenorio... [facility] [address] [place] [address] [address] [place] [address] [phone] Social History Tobacco Use Types Packs/Day Years [...] How often do you attend shinto or jewish Patient refused 08/08/2019 services? Do you belong to any clubs or organizations such as No 08/08/2019 shinto groups, Nanotherapeuticss, fraE-Cube Energy or athletic groups, or school groups? [...] with No / Unsure 07/17/2020 1:32 PM PHYS ASSISTANT someone who was confirmed or suspected to have Coronavirus / COVID-19? documented as of this encounter Miscellaneous Notes Telephone Encounter - Lainey Wells - 07/16/2020 11:55 AM CST See message to pt. Lainey Russell on 07/16/2020 at 11:55 AM ASSISTANT Telephone Encounter - Tatiana [place] NP - 07/16/2020 11:37 AM CST Provider E-Visit time total (minutes): -0 No reply, pt ended up going to for this problem ASSISTANT documented in this encounter Plan of [...] as of this encounter Care Teams Inventory Audit Clerk Relationship Specialty Start Date End Date Noreen Hills PCP - General Nurse Practitioner 01/09/19 12/12/21 SEAN Haley MANUFACTURER AGENT 3305 [facility] [place] [id number] Noreen Hills Assigned PCP 06/16/18 SEAN Haley MANUFACTURER AGENT [address] [facility] [place] [address] Kalyan Galvan Personal Advocate & 08/08/19 Liaison (PAL) Lashae Trevino Pharmacist Pharmacist 10/14/19 12/01/20 CLAUDIA Beck [address] [place] [id number] Eduardo Sharma MD Assigned Sleep Provider 04/02/20 05/07/21 [address] [place] [id number] Rios Monteiro MD Assigned Musculoskeletal 04/02/20 08/24/[address] [place] [address]30867 documented as of this encounter
--- OUTSIDE RECORDS SUMMARY | 2022-02-06 10:11 | XMS_ITS | Encounter Summary ---
:1965 Author Organization [place] Address [address] [place] [address] Care Team Providers Name Role Phone Noreen Hills APRN PERFORATOR OPERATOR Unavailable [phone] Noreen Hills APRN, CNP Primary Care Provider [phone] Kalyan Galvan Unavailable Unavailable Lashae Trevino [facility] Unavailable [phone] Reason for Visit Reason Comments Diabetes Encounter Details Date Type Department Care Team Description 03/16/2020 Virtual Visit [facility] Noreen Hills Migraine without status migrainosus, not intractable, unspecified migraine type (Primary Dx); Clinic [place] Haley APRN Snoring; 3305 Dasher PERFORATOR OPERATOR Persistent insomnia; [address] [facility] Chest pain, unspecified type ; [address] [facility] [address] Type 2 diabetes mellitus with complicati on, without long-term current use of insulin (H) [place] [address] [place] [address] Social History Tobacco Use [...] How often do you attend islam or sabianism Patient refused 08/08/2019 services? Do [...] this encounter Progress Notes Noreen Hills, SEAN PERFORATOR OPERATOR - 03/16/2020 7:15 AM CDT Megan [...] would you like to be contacted at? [phone] How would you like to obtain your [...] in feet. 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 Has explored sitting down at work but [...] follow-ups on file. Noreen Hills APRN CNP [facility] [place] Phone call duration: 35 minutes documented [...] as of this encounter Care Teams Irrigator Relationship Specialty Start Date End Date Noreen Hills PCP - General Nurse Practitioner 01/09/19 12/12/21 SEAN Haley PERFORATOR OPERATOR [address]305 [facility] [place] [address] Noreen Hills Assigned PCP 06/16/18 SEAN Haley PERFORATOR OPERATOR [address] [facility] [place] [id number] Kalyan Galvan Personal Advocate & 08/08/19 Liaison (PAL) Lashae Trevino Pharmacist Pharmacist 10/14/19 12/01/20 Kiran [facility] [address] [place] [address] documented as of this encounter
--- OUTSIDE RECORDS SUMMARY | 2022-02-06 10:11 | XMS_ITS | Encounter Summary ---
:1965 Author Organization [place] Address [address] [place] [address] Care Team Providers Name Role Phone Noreen Hills APRN, CNP Unavailable [phone] Noreen Hills APRN, CNP Primary Care Provider [phone] Kalyan Galvan Unavailable Unavailable Lashae Trevino [facility] Unavailable [phone] Eduardo Sharma MD Unavailable Rios Monteiro MD Unavailable Marcelo Artis PA-C Unavailable [phone] Rodrigo Man PA-C Unavailable Reason for Visit Reason Onset Date Comments Refill Request 06/14/2020 blood glucose monito ring (ONE TOUCH DELICA) lancets Refill Request 06/14/2020 blood glucose (ACCU- CHEK JANICE) test strip Encounter Details Date Type Department Care Team Description 06/14/2020 Refill [facility] Noreen Hills Req uest (blood Clinic [place] Haley APRN CNP glucose monitoring (ONE [address] [place] [address] [place] TOUCH DELICA) lancets); [facility] Refclaudia Request (blood [address] [place] [address] glucose ([place] [id number] JANICE) test strip) [phone] Social History Tobacco Use Types Packs/Day Years [...] How often do you attend christianity or church Patient refused 08/08/2019 services? Do [...] Christy Pelayo RN - 06/16/2020 11:04 AM APPLIANCES SAMPLE MAKER Prescription approved per [facility] Refill Protocol. Christy Pelayo RN Flex IANCES SAMPLE MAKER Telephone Encounter - Wilda Gupta - 06/14/2020 3:55 PM CST Request from pharmacy states: ONE TOUCH VERIO TEST STRIPS and ONE TOUCH 30G DELICA LNC, IANCES SAMPLE MAKER documented in this encounter Plan of [...] documented as of this encounter Care Teams Woodenware Assembler Relationship Specialty Start Date End Date Noreen Hills PCP - General Nurse Practitioner 01/09/19 12/12/21 SEAN Haley AUDIO INSTALLER 3305 [facility] [place] [address] Noreen Hills Assigned PCP 06/16/18 SEAN Haley AUDIO INSTALLER 3[address] [facility] [place] [address] Kalyan Galvan Personal Advocate & 08/08/19 Liaison (PAL) Lashae Trevino Pharmacist Pharmacist 10/14/19 12/01/20 [facility] [address] [facility] [address] [place], [place] [address] Eduardo Sharma MD Assigned Sleep Provider 04/02/20 05/07/[address] [place] [id number] Rios Monteiro MD Assigned Musculoskeletal 04/02/20 08/24/20 [address] [facility] Provider [address] [place], [place] [address] Marcelo Artis Assigned Musculoskeletal 08/25/20 08/20/21 MIKAYLA Nuno Provider [address] [place], [place] 6[address] Rodrigo Man Assigned Surgical 08/25/2011/27 MIKAYLA [place]acy Provider [address] [place] [id number] documented as of this encounter
--- OUTSIDE RECORDS SUMMARY | 2022-02-06 10:11 | XMS_ITS | Encounter Summary ---
:1965 Author Organization [place] Address [address] [place] [address] Care Team Providers Name Role Phone Noreen Hills APRN HAND CIGAR MAKER Unavailable [phone] Noreen Hills APRN HAND CIGAR MAKER Primary Care Provider [phone] Kalyan Galvan Unavailable Unavailable Lashae Trevino [facility] Unavailable [phone] Eduardo Sharma MD Unavailable Rios Monteiro MD Unavailable Marcelo Artis PA-C Unavailable [phone] Rodrigo Man PA-C Unavailable Reason for Visit Reason Onset Date Comments Refill Request 05/29/2020 omeprazole (PRILOSEC ) [address] capsule Encounter Details Date Type Department Care Team Description 05/29/2020 Refill [facility] Noreen Hillsill Req uest Clinic [place] Haley APRN CNP (omeprazole (PRILOSEC) [address] [place] [address] [facility] [address] capsule) [facility] [address] [place] [address] [place] [address] [phone] Social History Tobacco Use Types Packs/Day Years [...] How often do you attend tenriism or muslim Patient refused 08/08/2019 services? Do [...] Keyona Mantilla RN - 05/31/2020 10:42 AM CASKET UPHOLSTERER Patient has refills remaining with requesting pharmacy. Keyona Palacios - Registered Nurse [facility] ET UPHOLSTERER Telephone Encounter - Kartik Javier - 05/29/2020 5:01 PM CST Alternative Requested: Insurance covers max 90 days in a year. Please submit PA to continue therapy. ET UPHOLSTERER documented in this encounter Plan of Treatment [...] as of this encounter Care Teams Tool Room Attendant Relationship Specialty Start Date End Date Noreen Hills PCP - General Nurse Practitioner 01/09/19 12/12/21 SEAN Haley HAND CIGAR MAKER 3305 [facility] [place] [id number] Noreen Hills Assigned PCP 06/16/18 SEAN Haley HAND CIGAR MAKER [address] [facility] [place] [address] Kalyan Galvan Personal Advocate & 08/08/19 Liaison (PAL) Lashae Trevino Pharmacist Pharmacist 10/14/19 12/01/20 Kiran [facility] [address] [place] [address] Eduardo Sharma MD Assigned Sleep Provider 04/02/20 05/07/[address] [place] [address] Rios Monteiro MD Assigned Musculoskeletal 04/02/20 08/24/20 [address] [facility] [employer] [facility] Provider [address] [place], [place] 47[address] Marcelo Artis Assigned Musculoskeletal 08/25/20 08/20/21 MIKAYLA Nuno Provider [address] [place], [place] [address] Rodrigo Man Assigned Surgical 08/25/2011/27 MIKAYLA Lacy Provider [address] [place] [address] documented as of this encounter
--- OUTSIDE RECORDS SUMMARY | 2022-02-06 10:11 | XMS_ITS | Encounter Summary ---
:1965 Author Organization [place] Address [address] [place] [address] Care Team Providers Name Role Phone Noreen Hills APRN TELEPHONY ENGINEER Unavailable [phone] Noreen Hills APRN TELEPHONY ENGINEER Primary Care Provider [phone] Kalyan Galvan Unavailable Unavailable Lashae Trevino [facility] Unavailable [phone] Reason for Visit Reason Onset Date Comments Covid 19 Testing 02/06/2020 Encounter Details Date Type Department Care Team Description 02/06/2020 Orders Only [facility] Marcelo Artis zachary finger of Urgent Care Jolly Nuno PA-C right thumb [address] [address] [place], [place] [id number] (Wo rk) Social History Tobacco Use Types [...] How often do you attend gnosticism or yarsanism Patient refused 08/08/2019 services? Do [...] (Coronavirus) by PCR (02/06/2020 4:07 PM CDT) [facility] Method Time Signature COVID-19 Nasopharyngeal 02/06/2020 [place] Virus PCR to 4:35 PM CDT [facility] Source [facility] COVID-19 Not Detected 02/07/2020 [facility] Virus PCR to 2:10 PM CDT [facility] - GENOMICS Result CENTER LABORATORY Comment: [...] N1,N2 gene targets of CoV2 and human CLINICAL RESEARCH MANAGER as an internal control. A negative result [...] (Centers for Disease Control) Testing performed by [facility], Room 1-210, [address] [place] [address]. T his test was developed and its performance characteristics determined b y the [facility]. It has not been cleared or [...] Address City/State/ZIP Code Phon e Number [address] [address] [facility] CENTER LABORATORY Room: 1-[address] [address] [facility] documented in this encounter Visit Diagnoses Diagnosis Trigger finger of right thumb documented in this encounter Additional Health Concerns Assessment Noted Time PHQ-9 Depression Total Score: 9 08/09/2019 7:03 AM SPORTS CARTOONIST documented as of this encounter Care Teams System Programmer Relationship Specialty Start Date End Date Noreen Hills PCP - General Nurse Practitioner 01/09/19 12/12/21 SEAN Haley TELEPHONY ENGINEER [address] [facility] [place] [address] Noreen Hills Assigned PCP 06/16/18 SEAN Haley TELEPHONY ENGINEER [address] [facility] [place] [address] Kalyan Galvan Personal Advocate & 08/08/19 Liaison (PAL) Lashae Trevino Pharmacist Pharmacist 10/14/19 12/01/20 Kiran, [facility] [address] [place] [address] documented as of this encounter
--- OUTSIDE RECORDS SUMMARY | 2022-02-06 10:11 | XMS_ITS | Encounter Summary ---
:1965 Author Organization [place] Address [address] [place] [address] Care Team Providers Name Role Phone Noreen Hills APRN EMPLOYEE RELATIONS SPECIALIST Unavailable [phone] Noreen Hills APRN EMPLOYEE RELATIONS SPECIALIST Primary Care Provider [phone] Kalyan Galvan Unavailable Unavailable Lashae Trevino [facility] Unavailable [phone] Encounter Details Date Type Department Care [...] How often do you attend rastafari or gnosticism Patient refused 08/08/2019 services? Do [...] Depression Total Score: 9 08/09/2019 7:03 AM SEAM PRESS OPERATOR documented as of this encounter Care Teams Skidder Lever Operator Relationship Specialty Start Date End Date Noreen Hills PCP - General Nurse Practitioner 01/09/19 12/12/21 SEAN Haley EMPLOYEE RELATIONS SPECIALIST [address] [facility] [address] [place], [place] [address] Noreen Hills PCP 06/16/18 SEAN Haley EMPLOYEE RELATIONS SPECIALIST [address] [facility] [place] [address] Kalyan Galvan Personal Advocate & 08/08/19 Liaison (PAL) Lashae Trevino Pharmacist Pharmacist 10/14/19 12/01/20 [facility] [address] [facility] [address] [place], [place] [address] documented as of this encounter
--- OUTSIDE RECORDS SUMMARY | 2022-02-06 10:11 | XMS_ITS | Encounter Summary ---
:1965 Author Organization [place] Address [address] [place] [address] Care Team Providers Name Role Phone Noreen Hills APRN FIREBRICK LAYER HELPER Unavailable [phone] Noreen Hills APRN, CNP Primary Care Provider [phone] Kalyan Galvan Unavailable Unavailable Lashae Trevino [facility] Unavailable [phone] Eduardo Sharma MD Unavailable Rios Monteiro MD Unavailable Reason for Visit Reason Onset Date Comments Panel Management 04/06/2020 eye exam Encounter Details Date Type Department Care Team Description 04/06/[address] [facility] JeanaNoreen girarda saad (eye Clinic [place] Haley APRN FIREBRICK LAYER HELPER exam) [address] [place] 3305 [facility] [address] [place] [address] [place] [address] [phone] Social History Tobacco Use Types Packs/Day Years [...] How often do you attend rastafari or protestant Patient refused 08/08/2019 services? Do [...] appt in Jun 2020. Christi Panda CMA [facility]NT Telephone Encounter - Christi Panda MA - 04/09/2020 9:09 AM CDT Reminder letter mailed to patient. Christi Panda CMA Telephone Encounter - Christi Panda MA - 04/06/2020 3:33 PM CDT Images from the original note were not included. Patient Quality Outreach Summary: Patient is due/failing the following: Eye Exam and Immunizations Type of outreach: Sent Year Up message. Questions for provider review: None Start [...] as of this encounter Care Teams Block Out Machine Operator Relationship Specialty Start Date End Date Noreen Hills PCP - General Nurse Practitioner 01/09/19 12/12/21 SEAN Haley FIREBRICK LAYER HELPER [address] [facility] [place] [address] Noreen Hills Assigned PCP 06/16/18 SEAN Haley FIREBRICK LAYER HELPER [address] [facility] [place] [address] Kalyan Galvan Personal Advocate & 08/08/19 Liaison (PAL) Lashae Trevino Pharmacist Pharmacist 10/14/19 12/01/20 [facility] [facility] [place] [phone] Eduardo Sharma MD Assigned Sleep Provider 04/02/20 05/07/21 [address] [place] [id number] Rios Monteiro MD Assigned Musculoskeletal 04/02/20 08/24/20 [address] [facility] Provider [address] [place], [place] 4[address] documented as of this encounter
--- OUTSIDE RECORDS SUMMARY | 2022-02-06 10:11 | XMS_ITS | Encounter Summary ---
:1965 Author Organization [place] Address [address] [place] [address] Care Team Providers Name Role Phone Noreen Hills APRN KEYBOARD INSTRUMENT REPAIRER Unavailable [phone] Noreen Hills APRN KEYBOARD INSTRUMENT REPAIRER Primary Care Provider [phone] Kalyan Galvan Unavailable Unavailable Lashae Trevino [facility] Unavailable [phone] Eduardo Sharma MD Unavailable Rios Monteiro MD Unavailable Reason for Visit Reason Comments Medication Refill Encounter Details Date Type Department Care Team Description 03/07/2020 Refill [facility] Noreen Hills, Medication Refill Pino MIRELESN KEYBOARD INSTRUMENT REPAIRER 3304 [facility] [address] [place] [address] [address] [place] [address] [place] [address] [phone] Social History Tobacco Use Types Packs/Day Years [...] How often do you attend buddhism or gnosticism Patient refused 08/08/2019 services? Do you belong to any clubs or organizations such as No 08/08/2019 buddhism groups, unions, fraLiquefied Natural Gas or athletic groups, or school groups? How [...] the [facility] refill protocol Radha Manning, RN [facility] -- Triage Nurse documented in this encounter Plan of Treatment Not on filedocumented as of this encounter Visit Diagnoses Diagnosis Persistent insomnia Persistent disorder of initiating or martínez ntaining sleep documented in this encounter Additional Health Concerns Assessment Noted Time PHQ-9 Depression Total Score: 9 08/09/2019 7:03 AM TOOL AND DIE REPAIR documented as of this encounter Care Teams Ground Services Instructor Relationship Specialty Start Date End Date Noreen Hills PCP - General Nurse Practitioner 01/09/19 12/12/21 SEAN Haley KEYBOARD INSTRUMENT REPAIRER [address] [facility] [place] [address] Noreen Hills Assigned PCP 06/16/18 SEAN Haley KEYBOARD INSTRUMENT REPAIRER [address] [facility] [place] [address] Kalyan Galvan Personal Advocate & 08/08/19 Liaison (PAL) Lashae Trevino Pharmacist Pharmacist 10/14/19 12/01/20 [facility] 1440 [facility] [place] [address] Eduardo Sharma MD Assigned Sleep Provider 04/02/20 05/07/21 [address] [place] [address] Rios Monteiro MD Assigned Musculoskeletal 04/02/20 08/24/20 [address] [facility] Provider [address] [place] [address] documented as of this encounter
--- OUTSIDE RECORDS SUMMARY | 2022-02-06 10:11 | XMS_ITS | Encounter Summary ---
:1965 Author Organization [place] Address [address] [place] [address] Care Team Providers Name Role Phone Noreen Hills APRN, CNP Unavailable [phone] Noreen Hills APRN, CNP Primary Care Provider [phone] Kalyan Galvan Unavailable Unavailable Lashae Trevino [facility] Unavailable [phone] Reason for Visit Reason Onset Date Comments Medication Request 03/22/2020 Metformin. Encounter Details Date Type Department Care Team Description 03/22/2020 Telephone [facility] Noreen Hills Medication Request Clinic Pino Haley APRN CNP (Metformin.) [address] [facility] [address] [place] [address] [place] [address] [phone] Social History Tobacco Use Types Packs/Day Years [...] How often do you attend zoroastrian or yarsanism Patient refused 08/08/2019 services? Do [...] at 9:14 AM on March 23, 2020 [facility] Guide [phone] Telephone Encounter - Charlotte Mark CMA - 03/22/2020 10:33 AM CDT Fax rec'd from [facility] pharmacy, directions for Metformin 500mg state take [...] documented as of this encounter Care Teams Talent Acquisition Manager Relationship Specialty Start Date End Date Noreen Hills PCP - General Nurse Practitioner 01/09/19 12/12/21 SEAN Haley WINDOW MACHINE OPERATOR [address] [facility] [place] [address] Noreen Hills Assigned PCP 06/16/18 SEAN Haley WINDOW MACHINE OPERATOR [address] [facility] [place] [address] Kalyan Galvan Personal Advocate & 08/08/19 Liaison (PAL) Lashae Trevino Pharmacist Pharmacist 10/14/19 12/01/20 Kiran [facility] [address] [place] [address] documented as of this encounter
--- OUTSIDE RECORDS SUMMARY | 2022-02-06 10:11 | XMS_ITS | Encounter Summary ---
:1965 Author Organization [place] Address [address] [place] [address] Care Team Providers Name Role Phone Noreen Hills APRN RADIO DESPATCHER Unavailable [phone] Noreen Hills APRN RADIO DESPATCHER Primary Care Provider [phone] Kalyan Galvan Unavailable Unavailable Lashae Trevino [facility] Unavailable [phone] Encounter Details Date Type Department Care [...] How often do you attend confucianist or jainism Patient refused 08/08/2019 services? Do [...] Depression Total Score: 9 08/09/2019 7:03 AM SECURITY SCREENER documented as of this encounter Care Teams Rn Acls Relationship Specialty Start Date End Date Noreen Hills PCP - General Nurse Practitioner 01/09/19 12/12/21 SEAN Haley RADIO DESPATCHER [address] [facility] [place], [place] [address] Noreen Hills PCP 06/16/18 SEAN Haley RADIO DESPATCHER [address] [place] [address] Kalyan Galvan Personal Advocate & 08/08/19 Liaison (PAL) Lashae Trevino Pharmacist Pharmacist 10/14/19 12/01/20 [facility] [address] [facility] [address] [facility] [address] [place], [place] [address] documented as of this encounter
--- OUTSIDE RECORDS SUMMARY | 2022-02-06 10:11 | XMS_ITS | Encounter Summary ---
:1965 Author Organization [facility] Address [address] [place] [address] Care Team Providers Name Role Phone Noreen Hills APRN AIRCRAFT INSTRUMENT ENGINEER Unavailable [phone] Noreen Hills APRN AIRCRAFT INSTRUMENT ENGINEER Primary Care Provider [phone] Kalyan Galvan Unavailable Unavailable Lashae Trevino [facility] Unavailable [phone] Reason for Visit Reason Onset Date Comments Schedule Surgery 01/13/2020 right thumb trigger finger Encounter Details Date Type Department Care Team Description 01/13/2020 [facility] [address] [facility] (r ight thumb trigger Hooks ROSHAN 300 finger) [address] [place] [address] [address] [place] [address] [phone] Social History Tobacco Use Types Packs/Day Years [...] How often do you attend gnosticist or uatsdin Patient refused 08/08/2019 services? Do [...] completed: Not Applicable Date: 01/13/20 Avila Donnelly, Cafe Operator documented in this encounter Plan of Treatment Not on filedocumented as of this encounter Results Asymptomatic COVID-19 Virus (Coronavirus) by PCR (02/06/2020 4:07 PM CDT) [facility] Method Time Signature COVID-19 Nasopharyngeal 02/06/2020 [place] Virus PCR to 4:35 PM CDT [facility] COVID-19 Not Detected 02/07/2020 [facility] Virus PCR to 2:10 PM CDT [facility] Comment: Collection of [...] N1,N2 gene targets of CoV2 and human MANAGER GYN as an internal control. A negative result [...] (Centers for Disease Control) Testing performed by [facility], Room 1-210, [address] [place] [address]. T his test was developed and its performance characteristics determined b y the [facility]. It has not been cleared or [...] Organization Address City/State/ZIP Code Phon e Number [address] [address] [facility] Room: [address] [place] [address] [facility] documented in this encounter Visit Diagnoses Diagnosis Trigger finger of right thumb - Primary Pre-op testing Preoperative examination, unspecified documented in this encounter Additional Health Concerns Assessment Noted Time PHQ-9 Depression Total Score: 9 08/09/2019 7:03 AM SENIOR EDUCATION SPECIALIST documented as of this encounter Care Teams Caser In Relationship Specialty Start Date End Date Noreen Hills PCP - General Nurse Practitioner 01/09/19 12/12/21 SEAN Haley AIRCRAFT INSTRUMENT ENGINEER [address] [facility] [place] [id number] Noreen Hills Assigned PCP 06/16/18 SEAN Haley AIRCRAFT INSTRUMENT ENGINEER [address] [facility] [place] [id number] Kalyan Galvan Personal Advocate & 08/08/19 Liaison (PAL) Lashae Trevino Pharmacist Pharmacist 10/14/19 12/01/20 Kiran, [facility] [address] [place] [address] documented as of this encounter
--- OUTSIDE RECORDS SUMMARY | 2022-02-06 10:11 | XMS_ITS | Encounter Summary ---
:1965 Author Organization [place] Address [address] [place] [address] Care Team Providers Name Role Phone Noreen Hills APRN, CNP Unavailable [phone] Noreen Hills APRN, CNP Primary Care Provider [phone] Kalyan Galvan Unavailable Unavailable Lashae Trevino [facility] Unavailable [phone] Eduardo Sharma MD Unavailable Rios Monteiro MD Unavailable Reason for Visit Reason Onset Date Comments Prior Auth - Medication 06/17/2020 Omeprazole Encounter Details Date Type Department Care Team Description 06/17/2020 Telephone [facility] Noreen Hills Prior Auth - Medication Clinic Pino Haley APRN CNP (Omeprazole) [address] [facility] [address] [place] [address] [place] [address] [phone] Social History Tobacco Use Types Packs/Day Years [...] How often do you attend nondenominational or rastafari Patient refused 08/08/2019 services? Do you belong to any clubs or organizations such as No 08/08/2019 nondenominational groups, Sonicbidss, fraternal or athletic groups, or school groups? [...] Approved Dose/Quantity: Reference #: Insurance Company: [employer] - Expected CoPay: CoPay Card Available: Foundation Assistance Needed: Which Pharmacy is filling the prescription (Not needed for infusion/clinic administered): [place] [address] Pharmacy Notified: Yes Patient Notified: Yes Instructed pharmacy to notify patient when script is ready to machine operator picker/ship. [place] PLANNER Telephone Encounter - Rj Salinas - 06/17/2020 3:15 PM CST Images from the original note were not included. Central Prior Authorization Team PA Initiation Medication: Omeprazole Insurance Company: [employer] - Pharmacy Filling the Rx: [place] [address] Filling Pharmacy Filling Pharmacy Fax: Start Date: 06/17/2020 ND PLANNER Telephone Encounter - Charlotte Mark CMA - 06/17/2020 11:02 AM CST Prior Authorization Retail Medication Request Medication/Dose: Omeprazole DR 20mg capsules ICD code (if different than what is on RX): Previously Tried and Failed: Rationale: Insurance requires a prior authorization for more than 90 capsules in 365 days. Insurance Name: Insurance ID: Pharmacy Information (if different than what is on RX) Name: GAYATHRI [place] PLANNER documented in this encounter Plan of Treatment Not on filedocumented as of this encounter Visit Diagnoses Not on filedocumented in this encounter Additional Health Concerns Assessment Noted Time PHQ-9 Depression Total Score: 5 03/16/2020 7:09 AM CDT documented as of this encounter Care Teams Power Brake Rebuilder Relationship Specialty Start Date End Date Noreen Hills PCP - General Nurse Practitioner 01/09/19 12/12/21 SEAN Haley EARTH BURNER [address] [facility] [place] [address] Noreen Hills Assigned PCP 06/16/18 SEAN Haley EARTH BURNER [address] [facility] [place] [address] Kalyan Galvan Personal Advocate & 08/08/19 Liaison (PAL) Lashae Trevino Pharmacist Pharmacist 10/14/19 12/01/20 [facility] [address] [facility] [place] [id number] Eduardo Sharma MD Assigned Sleep Provider 04/02/20 05/07/21 [address] [facility] [address] [place] [address] Rios Monteiro MD Assigned Musculoskeletal 04/02/20 08/24/20 [address] [facility] Provider ROSHAN [address] [place] [id number] documented as of this encounter
--- OUTSIDE RECORDS SUMMARY | 2022-02-06 10:11 | XMS_ITS | Encounter Summary ---
:1965 Author Organization [facility] Address [address] [place] [address] Care Team Providers Name Role Phone Noreen Hills APRN COMMUNITY HEALTH DIRECTOR Unavailable [phone] Noreen Hills APRN COMMUNITY HEALTH DIRECTOR Primary Care Provider [phone] Kalyan Galvan Unavailable Unavailable Lashae Trevino [facility] Unavailable [phone] Eduardo Sharma MD Unavailable Rios Monteiro MD Unavailable Reason for Visit Reason Onset Date Comments Refill Request 06/17/2020 Encounter Details Date Type Department Care Team Description 06/16/2020 Refill [facility] Noreen Hills istine, Refill Request Pino ESTRADA COMMUNITY HEALTH DIRECTOR [address] [place] [address] [place] [address] [phone] Social History Tobacco Use Types Packs/Day Years [...] How often do you attend protestant or lutheran Patient refused 08/08/2019 services? Do you belong to any clubs or organizations such as No 08/08/2019 protestant groups, Ku6s, fraScrap Connection or athletic groups, or school groups? How [...] Keyona Mantilla RN - 06/16/2020 11:13 AM PRINT OPERATOR Prescription approved per [facility], [facility] or [facility] refill protocol. Keyona Palacios - Registered Nurse [facility] Diagnostic Services T OPERATOR Telephone Encounter - Christy Pelayo RN - 06/16/2020 11:05 AM PRINT OPERATOR Patient needing refill of medication per call. Christy Pelayo RN Flex T OPERATOR documented in this encounter Plan of Treatment Not on filedocumented as of this encounter Visit Diagnoses Diagnosis Gastroesophageal reflux disease without esophagitis Esophageal reflux documented in this encounter Additional Health Concerns Assessment Noted Time PHQ-9 Depression Total Score: 5 03/16/2020 7:09 AM CDT documented as of this encounter Care Teams Weigher Production Relationship Specialty Start Date End Date Noreen Hills PCP - General Nurse Practitioner 01/09/19 12/12/21 SEAN Haley COMMUNITY HEALTH DIRECTOR [address] [facility] [place] [address] Noreen Hills Assigned PCP 06/16/18 SEAN Haley COMMUNITY HEALTH DIRECTOR 3[address] [facility] [place] [address] Kalyan Galvan Personal Advocate & 08/08/19 Liaison (PAL) Lashae Trevino Pharmacist Pharmacist 10/14/19 12/01/20 [facility] 1440 [facility] [place] [address] Eduardo Sharma MD Assigned Sleep Provider 04/02/20 05/07/21 [address] ROSHAN [address] [place] [id number] Rios Monteiro MD Assigned Musculoskeletal 04/02/20 08/24/20 [address] [facility] Provider ROSHAN [address] [place] [address] documented as of this encounter
--- OUTSIDE RECORDS SUMMARY | 2022-02-06 10:11 | XMS_ITS | Encounter Summary ---
:1965 Author Organization [place] Address [address] [place] [address] Care Team Providers Name Role Phone Noreen Hills APRN AQUACULTURE FARMER Unavailable [phone] Noreen Hills APRN AQUACULTURE FARMER Primary Care Provider [phone] Kalyan Galvan Unavailable Unavailable Lashae Trevino [facility] Unavailable [phone] Reason for Visit Reason Comments Surgical Followup Right Trigger release, DOS , Dr. 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 Marcelo Artis PA-C Dept. Orthopedic Surgery [facility] 02/19/2020 documented in this encounter Plan of Treatment Not on filedocumented as of this encounter Visit Diagnoses Diagnosis Orthopedic aftercare - Primary Unspecified orthopedic aftercare documented in this encounter Additional Health Concerns Assessment Noted Time PHQ-9 Depression Total Score: 9 08/09/2019 7:03 AM LEGAL RECEPTIONIST documented as of this encounter Care Teams Manager Transition Relationship Specialty Start Date End Date Noreen Hills PCP - General Nurse Practitioner 01/09/19 12/12/21 SEAN Haley AQUACULTURE FARMER 3305 [facility] [place] [address] Noreen Hills Assigned PCP 06/16/18 SEAN Haley AQUACULTURE FARMER 3305 [facility] [place] [address] Kalyan Galvan Personal Advocate & 08/08/19 Liaison (PAL) Lashae Trevino Pharmacist Pharmacist 10/14/19 12/01/20 Kiran, [facility] [address] [place] [address] documented as of this encounter
--- OUTSIDE RECORDS SUMMARY | 2022-02-06 10:11 | XMS_ITS | Encounter Summary ---
:1965 Author Organization [place] Address [address] [place] [address] Care Team Providers Name Role Phone Noreen Hills APRN CORE MICROARCHITECT Unavailable [phone] Noreen Hills APRN CORE MICROARCHITECT Primary Care Provider [phone] Kalyan Galvan Unavailable Unavailable Lashae Trevino [facility] Unavailable [phone] Eduardo Sharma MD Unavailable Rios Monteiro MD Unavailable Marcelo Artis PA-C Unavailable [phone] Rodrigo Man PA-C Unavailable [phone] Reason for Visit Reason Comments Medication Refill Encounter Details Date Type Department Care Team Description 06/18/[address] [facility] Noreen Hills, Medication Refill Pino MECHANICAL TEST ENGINEER CORE MICROARCHITECT 3308 [facility] [address] [place] [address] [address] [place] [address] [place] [address] [phone] Social History Tobacco Use Types Packs/Day Years [...] How often do you attend scientologist or moravian Patient refused 08/08/2019 services? Do [...] 06/18/2020 10:53 AM CST Prescription approved per [facility] Refill Protocol. Desirae Champagne RN on 06/18/2020 at 10:52 AM RAL SUPPLY ASSISTANT documented in this encounter Plan of [...] documented as of this encounter Care Teams Pipe And Test Supervisor Relationship Specialty Start Date End Date Noreen Hills PCP - General Nurse Practitioner 01/09/19 12/12/21 SEAN Haley CORE MICROARCHITECT [address] [facility] [place] [address] Noreen Hills Assigned PCP 06/16/18 SEAN Haley CORE MICROARCHITECT [address] [facility] [place] [address] Kalyan Galvan Personal Advocate & 08/08/19 Liaison (PAL) Lashae Trevino Pharmacist Pharmacist 10/14/19 12/01/[address] [facility] [address] [facility] [place] [address] Eduardo Sharma MD Assigned Sleep Provider 04/02/20 05/07/21 [address] ROSHAN [address] [place] [id number] Rios Monteiro MD Assigned Musculoskeletal 04/02/20 08/24/20 [address] [employer] Provider ROSHAN [address] [place] [address] Marcelo Artis Assigned Musculoskeletal 08/25/20 08/20/21 MIKAYLA Nuno Provider [address] [facility] [address] [place] [address] Rodrigo Man Assigned Surgical 08/25/2011/27 MIKAYLA Lacy Provider 6545 [facility] [address] [place], [place] [address] documented as of this encounter
--- OUTSIDE RECORDS SUMMARY | 2022-02-06 10:11 | XMS_ITS | Encounter Summary ---
:1965 Author Organization [place] Address [address] [place] [address] Care Team Providers Name Role Phone Noreen Hills APRN FARMWORKER CRANBERRY Unavailable [phone] Noreen Hills APRN FARMWORKER CRANBERRY Primary Care Provider [phone] Kalyan Galvan Unavailable Unavailable Lashae Trevino [facility] Unavailable [phone] Eduardo Sharma MD Unavailable Rios Monteiro [...] How often do you attend orthodoxy or adventism Patient refused 08/08/2019 services? Do [...] with No / Unsure 07/17/2020 1:32 PM MEDICAL ATTENDANT someone who was confirmed or suspected to have Coronavirus / COVID-19? documented as of this encounter Plan of Treatment Not on filedocumented as of this encounter Visit Diagnoses Not on filedocumented in this encounter Additional Health Concerns Assessment Noted Time PHQ-9 Depression Total Score: 5 03/16/2020 7:09 AM CDT documented as of this encounter Care Teams Weigher Packing Relationship Specialty Start Date End Date Noreen Hills PCP - General Nurse Practitioner 01/09/19 12/12/21 SEAN Haley FARMWORKER CRANBERRY [address] [facility] [place] [address] Noreen Hills Assigned PCP 06/16/18 SEAN Haley FARMWORKER CRANBERRY [address] [facility] [place] [address] Kalyan Galvan Personal Advocate & 08/08/19 Liaison (PAL) Lashae Trevino Pharmacist Pharmacist 10/14/19 12/01/20 [facility] [address] [facility] [address] [place], [place] [id number] Eduardo Sharma MD Assigned Sleep Provider 04/02/20 05/07/21 [address] [facility] [address] [place] [address] Rios Monteiro MD Assigned Musculoskeletal 04/02/20 08/24/20 [address] [facility] Provider ROSHAN [address] [place], [place] [address]64[address] documented as of this encounter
--- OUTSIDE RECORDS SUMMARY | 2022-02-06 10:11 | XMS_ITS | Encounter Summary ---
:1965 Author Organization [place] Address [address] [place] [address] Care Team Providers Name Role Phone Noreen Hills APRN PULLER THROUGH Unavailable [phone] Noreen Hills APRN PULLER THROUGH Primary Care Provider Kalyan Galvan Unavailable Unavailable Lashae Trevino [facility] Unavailable [phone] Eduardo Sharma MD Unavailable Rios Monteiro MD Unavailable Reason for Visit Reason Comments Medication Refill Encounter Details Date Type Department Care Team Description 07/31/2020 Refill [facility] Noreen Hills, Medication Refill Pino ESTRADA PULLER THROUGH [address] [place] [address] [place] [address] [phone] Social History Tobacco Use Types Packs/Day Years [...] How often do you attend anabaptism or latter day Patient refused 08/08/2019 services? Do you belong to any clubs or organizations such as No 08/08/2019 anabaptism groups, Dattchs, fraAvangate BV or athletic groups, or school groups? How [...] with No / Unsure 07/17/2020 1:32 PM MEAT AND POULTRY INSPECTOR someone who was confirmed or suspected to have Coronavirus / COVID-19? documented as of this encounter Miscellaneous Notes Telephone Encounter - Russell Lainey - 08/02/2020 12:52 PM CST See message to pt. Lainey Russell on 08/02/2020 at 12:52 PM AND POULTRY INSPECTOR Telephone Encounter - Wilda Aponte RN - 08/02/2020 12:15 PM CST Prescription approved per [facility] Refill Protocol. Medication is being filled for 1 time refill only due to: Patient needs to be seen because visit dueApril, please assist in scheduling. Routed to Wilda Aponte RN, BSN Message handled by CLINIC NURSE. AND POULTRY INSPECTOR documented in this encounter Plan of Treatment Not on filedocumented as of this encounter Visit Diagnoses Diagnosis Fibromyalgia Mylagia and myositis, unspecified documented in this encounter Additional Health Concerns Assessment Noted Time PHQ-9 Depression Total Score: 5 03/16/2020 7:09 AM CDT documented as of this encounter Care Teams Wire Loop Machine Operator Relationship Specialty Start Date End Date Noreen Hills PCP - General Nurse Practitioner 01/09/19 12/12/21 SEAN Haley PULLER THROUGH [address] [facility] [place] [address] Noreen Hills Assigned PCP 06/16/18 SEAN Haley PULLER THROUGH [address] [facility] [place] [address] Kalyan Galvan Personal Advocate & 08/08/19 Liaison (PAL) Lashae Trevino Pharmacist Pharmacist 10/14/19 12/01/20 Kiran [facility] 9340 [facility] [place] [phone] Eduardo Sharma MD Assigned Sleep Provider 04/02/20 05/07/21 [address] [place] [address] [place] [address] Rios Monteiro MD Assigned Musculoskeletal 04/02/20 08/24/20 [address] [facility] Provider [address] [address] documented as of this encounter
--- OUTSIDE RECORDS SUMMARY | 2022-02-06 10:11 | XMS_ITS | Encounter Summary ---
:1965 Author Organization [place] Address [address] [place] [address] Care Team Providers Name Role Phone Noreen Hills APRN AIR DUCT MECHANIC Unavailable [phone] Noreen Hills APRN AIR DUCT MECHANIC Primary Care Provider [phone] Kalyan Galvan Unavailable Unavailable Lashae Trevino [facility] Unavailable [phone] Eduardo Sharma MD Unavailable Rios Monteiro MD Unavailable Reason for Visit Reason Comments Urgent Care UTI Pt is c/o that she has been having pain with urination and urinary frequency since Sunday. She noticed some blood on tissue when she wiped after urinating. She has not had a fever. Encounter Details Date Type Department Care Team Description 07/17/[address] [facility] Steph Sunny, Acute UTI (Primary Dx); Urgent Care [place] Ale[place]andro PA-C Dysuria; [address] Nonspecific finding on examination of [place], [place] [address] [address] [place] [address] Social History Tobacco Use [...] How often do you attend congregation or church Patient refused 08/08/2019 services? Do you belong to any clubs or organizations such as No 08/08/2019 congregation groups, I-Stands, fraNavionics or athletic groups, or school groups? How [...] with No / Unsure 07/17/2020 1:32 PM DIRECTOR MONEY someone who was confirmed or suspected to have Coronavirus / COVID-19? documented as of this encounter Last Filed Vital Signs Vital Sign Reading Time Taken Comments Blood Pressure 132/70 07/17/2020 1:44 PM DIRECTOR MONEY Pulse 94 07/17/2020 1:44 PM DIRECTOR MONEY Temperature 36.8 ??C (98.3 ??F) 07/17/2020 1:44 PM DIRECTOR MONEY Respiratory Rate 12 07/17/2020 1:44 PM DIRECTOR MONEY Oxygen Saturation 96% 07/17/2020 1:44 PM DIRECTOR MONEY Inhaled Oxygen Concentration - - Weight 80.3 kg (177 lb) 07/17/2020 1:44 PM DIRECTOR MONEY Height - - Body Mass Index 32.37 01/12/2020 3:45 PM CDT documented in this encounter Patient Instructions Patient InstructionsStaci Herrera PA-C - 07/17/2020 1:35 PM DIRECTOR MONEY Images from the original note were not included. (N39.0) Acute UTI (primary encounter diagnosis) Comment: Plan: cefdinir (OMNICEF) 300 MG capsule, fluconazole (DIFLUCAN) 150 MG tablet (R30.0) Dysuria Comment: Plan: *UA reflex to Microscopic and Culture ([facility] (except [place] and [place]), Urine Microscopic Patient Education Understanding Urinary Tract [...] toreach the bladder or kidneys in men. [employer] last reviewed this educational content on 06/11/2019 ?? [phone] [employer]. [address] [place] [address], [place] [address]. All rights reserved. This information is not intended as a substitute for professional medical care. Always follow your healthcare professional's instructions. CTOR MONEY documented in this encounter Progress Notes Staci [...] Plan: *UA reflex to Microscopic and Culture ([facility] (except [place] and [place]), Urine Microscopic See orders in [facility] If not improving or if condition [...] pain SKIN: no suspicious lesions or rashes CTOR MONEY documented in this encounter Nursing Notes Blank [...] completed using cuff size: kait Burgos R.N. CTOR MONEY documented in this encounter Plan of Treatment Not on filedocumented as of this encounter Procedures Procedure Name Priority Date/Time Associated Diagnosis Comme nts URINE CULTURE Routine 07/17/2020 2:16 PM Nonspecific finding R esults for this DIRECTOR MONEY on examination of procedure are in urine the results section. URINE MICROSCOPIC Routine 07/17/2020 2:03 PM Dysuria Resu lts for this DIRECTOR MONEY procedure are i n the results section. UA MACROSCOPIC WITH Routine 07/17/2020 2:03 PM Dysuria Re sults for this REFLEX TO DIRECTOR MONEY procedure are i n MICROSCOPIC AND the results CULTURE section. documented in this encounter Results (ABNORMAL) Urine Culture Aerobic Bacterial (07/17/2020 2:16 PM DIRECTOR MONEY) Component Value Ref Test Analysis Performed At Patholo gist [place] Method Time Signature Specimen Midstream Urine INFECTIOUS Description DISEASES [facility], [facility] Special Specimen 07/18/2020 INFECTIOUS Requests received in 6:51 PM DIRECTOR MONEY DISEASES preservative DIAGNOST[facility], [facility] Culture Micro 10,000 to 50,000 colonies/mL 021 INFECTIOUS Escherichia coli 10:02 PM DISEASES (A) DIRECTOR MONEY DIAGNOSTIC [facility]AT[facility], [facility] Specimen (Source) Anatomical Collection Method Collection Time Re ceived Time Location / / Volume Laterality Examination of 07/17/2020 2:16 07/17/2020 2:17 midstream urine PM DIRECTOR MONEY PM DIRECTOR MONEY specimen (procedure) Organism Antibiotic Method Susceptibility Escherichia [...] MICRO GENERAL ORDE RABASAF Performing Organization Address City/[facility]/ZIP Code Phon e Number INFECTIOUS DISEASES DIAGNOSTIC [address] [facility] N [address] LABORATORY, [facility] (ABNORMAL) Urine Microscopic (07/17/2020 2:03 PM DIRECTOR MONEY) [facility] gist Method Time Signature WBC Urine 50-100 (A) OTO5^0 - 5 07/17/2020 [facility] /HPF 2:15 PM DIRECTOR MONEY [facility] [place] RBC Urine 25-50 (A) OTO2^O - 2 07/17/2020 [facility] /HPF 2:15 PM [facility]OR MONEY [facility] [place] Squamous Few FEW^Few 07/17/2020 [facility] Epithelial /LPF /LPF 2:15 PM DIRECTOR MONEY [facility] [place] N Urine Renal Tub Epi Few (A) NEG^Negati 07/17/2020 [facility] ve /HPF 2:15 PM [facility]OR M[facility]Y [facility] [place] Bacteria Urine Many (A) NEG^Negati 07/17/2020 [facility] ve /HPF 2:15 PM DIRECTOR MONEY [facility] [place] Specimen Anatomical Collection Method Collection Time Receive d Time (Source) Location / / Volume Laterality 07/17/2020 2:03 PM 2:04 DIRECTOR MONEY PM DIRECTOR MONEY Staci Correa PA-C LAB - URINE ORDERABLES Performing Organization Address City/[facility] Phon e Number [facility] [place] [address] [place] [phone] (ABNORMAL) *UA reflex to Microscopic and Culture ([facility] ([facility] [place] [facility] (07/17/2020 2:03 PM DIRECTOR MONEY) [facility] Method Time Signature Color Urine Brown 07/17/2020 [place] 2:15 PM DIRECTOR MONEY [facility] [place] Appearance Urine Slightly 07/17/2020 [place] Cloudy 2:15 PM [facility]OR [facility] [place] Glucose Urine Negative NEG^Negat 07/17/2020 [place] jaki mg/dL 2:15 PM [facility] [place] Bilirubin Urine Negative NEG^Negat 07/17/2020 [place] jaki 2:15 PM [facility] [place] Ketones Urine Negative NEG^Negat 07/17/2020 [place] jaki mg/dL 2:15 PM DIRECTOR MONEY [facility] [place] Specific [place] >1.030 1.003 - 07/17/2020 [place] Urine 1.035 2:15 PM [facility]OR M[facility]Y [facility] [place] Blood Urine Large (A) NEG^Negat 07/17/2020 [place] jaki 2:15 PM DIRECTOR MONEY [facility] [place] pH Urine 5.5 5.0 - 7.0 07/17/2020 [place] pH 2:15 PM [facility]OR M[facility] [place] Protein Albumin >=300 (A) NEG^Negat 07/17/2020 [place] Urine jaki mg/dL 2:15 PM DIRECTOR MONEY [facility] [place] Urobilinogen 0.2 0.2 - 1.0 07/17/2020 [place] Urine EU/dL 2:15 PM [facility]OR M[facility]Y [facility] [place] Nitrite Urine Negative NEG^Negat 07/17/2020 [place] jaki 2:15 PM [facility]OR M[facility] [place] Leukocyte Small (A) NEG^Negat 07/17/2020 [place] Esterase Urine jaki 2:15 PM DIRECTOR MONEY [facility] [place] Source Midstream 07/17/2020 [place] Urine 2:04 PM [facility]OR M[facility] [place] Specimen (Source) Anatomical Collection Method Collection Time Re ceived Time Location / / Volume Laterality Examination of 07/17/2020 2:03 07/17/2020 2:04 midstream urine PM DIRECTOR MONEY PM DIRECTOR MONEY specimen (procedure) Staci Correa PA-C LAB - URINE ORDERABLES Performing Organization Address City/State/ZIP Code Phon e Number [facility] [place] [address] [place] [phone] documented in this encounter Visit Diagnoses Diagnosis Acute UTI - Primary Urinary tract infection, site not specif ied Dysuria Nonspecific finding on examination of ur ine Other nonspecific finding on examination of urine documented in this encounter Additional Health Concerns Assessment Noted Time PHQ-9 Depression Total Score: 5 03/16/2020 7:09 AM CDT documented as of this encounter Care Teams Electronic Device Monitor Relationship Specialty Start Date End Date Noreen Hills PCP - General Nurse Practitioner 01/09/19 12/12/21 SEAN Haley AIR DUCT MECHANIC [address] [facility] [place] [address] Noreen Hills Assigned PCP 06/16/18 SEAN Haley AIR DUCT MECHANIC [address] [facility] [place] [address] Kalyan Galvan Personal Advocate & 08/08/19 Liaison (PAL) Lashae Trevino Pharmacist Pharmacist 10/14/19 12/01/[facility] [address] [facility] [place] [address] Eduardo Sharma MD Assigned Sleep Provider 04/02/20 05/07/21 [address] [facility] [address] [address] Rios Monteiro MD Assigned Musculoskeletal 04/02/20 08/24/20 [address] [facility] Provider [place] [address] [place] [address] documented as of this encounter
--- OUTSIDE RECORDS SUMMARY | 2022-02-06 10:12 | XMS_ITS | Encounter Summary ---
:1965 Author Organization [place] Address [address] [place] [address] Care Team Providers Name Role Phone Noreen Hills APRN DICE DEALER Unavailable [phone] Noreen Hills APRN DICE DEALER Primary Care Provider [phone] Kalyan Galvan Unavailable Unavailable Lashae Trevino [facility] Unavailable [phone] Encounter Details Date Type Department Care [...] How often do you attend yazidism or jehovah's witness Patient refused 08/08/2019 services? [...] Depression Total Score: 9 08/09/2019 7:03 AM GAUGE MACHINE OPERATOR documented as of this encounter Care Teams Fruit And Vegetable Factory Worker Relationship Specialty Start Date End Date Noreen Hills PCP - General Nurse Practitioner 01/09/19 12/12/21 SEAN Haley DICE DEALER [address] [facility] [address] [place], [place] [address] Noreen Hills PCP 06/16/18 SEAN Hlaey DICE DEALER [address] [facility] [place] [address] Kalyan Galvan Personal Advocate & 08/08/19 Liaison (PAL) Lashae Trevino Pharmacist Pharmacist 10/14/19 12/01/20 [facility] [address] [place], [place] [address] documented as of this encounter
--- OUTSIDE RECORDS SUMMARY | 2022-02-06 10:12 | XMS_ITS | Encounter Summary ---
:1965 Author Organization [place] Address [address] [place] [address] Care Team Providers Name Role Phone Noreen Hills APRN ANNOUNCER Unavailable [phone] Noreen Hills APRN ANNOUNCER Primary Care Provider [phone] Kalyan Galvan Unavailable Unavailable Lashae Trevino [facility] Unavailable [phone] Reason for Visit Reason Onset Date Comments Appointment 11/07/2019 Encounter Details Date Type Department Care Team Description 11/07/2019 Telephone [facility] Marilin Marshall NP Appointment [place] [address] [facility] [address] [facility] [place] [address] [address] [place] [address] [phone] Social History Tobacco Use Types Packs/Day Years [...] Depression Total Score: 9 08/09/2019 7:03 AM CANE FLUME FEEDING MACHINE OPERATOR documented as of this encounter Care Teams Floral Assistant Relationship Specialty Start Date End Date Noreen Hills PCP - General Nurse Practitioner 01/09/19 12/12/21 SEAN Haley ANNOUNCER [address] [facility] [place] [address] Noreen Hills Assigned PCP 06/16/18 SEAN Haley ANNOUNCER [address] [facility] [place] [address] Kalyan Galvan Personal Advocate & 08/08/19 Liaison (PAL) Lashae Trevino Pharmacist Pharmacist 10/14/19 12/01/20 Kiran, [facility] [address] [place] [address] documented as of this encounter
--- OUTSIDE RECORDS SUMMARY | 2022-02-06 10:12 | XMS_ITS | Encounter Summary ---
:1965 Author Organization [facility] Address [address] [place] [address] Care Team Providers Name Role Phone Pankaj Woods APRN REAL ESTATE ANALYST Unavailable [phone] Pankaj Woods APRN REAL ESTATE ANALYST Primary Care Provider [phone] Kalyan Galvan Unavailable Unavailable Lashae Trevino [facility] Unavailable [phone] Reason for Visit (Routine) - Closed Specialty Diagnoses / Procedures Referred By Contact Refer red To Contact Cardiology Diagnoses NO BB Rh Cardiac Services Procedures ECHO STRESS TEST [address] [place], [place] [address] Phone: Referral ID Status Reason Start Date Expiration Date Visits Requ ested Visits Authorized [id number] Closed 12/16/2019 12/15/2020 1 1 Encounter Details Date Type Department Care Team Description 12/16/2019 Hospital Encounter [facility] Kera Tripp, Chest pain, unspecified type; [facility] Family history of [place] (myocardial infarct ion) [facility] [address] [facility] [place], [place] [address] [address] [place], [place] [phone] [address] Social History Tobacco Use Types Packs/Day [...] How often do you attend baptism or confucianist Patient refused 08/08/2019 services? Do you belong to any clubs or organizations such as No 08/08/2019 baptism groups, [employer], [employer] or athletic groups, or school groups? How [...] goal < 7% (H) fluticasone (FLONASE) 50 [place] 1-2 sprays 16 g 11 08/08 MCG/ACT [...] procedure are in CONTRAST Family history of [place] the res ults (myocardial section. infarction) documented in this encounter Results ECHO EXERCISE STRESS TEST WITH CONTRAST (12/16/2019 9:43 AM CDT) Anatomical Region Laterality Modality Echocardiography Specimen (Source) Anatomical Collection Method Collection Time Re ceived Time Location / / Volume Laterality 12/16/2019 9:06 AM CDT Narrative 12/16/2019 12:34 PM CDT [id number]^QASIM^KERA^Tobi [facility] Echocardiography Laboratory [address] [place] [address] Name: MEGAN CHOI : 1965 Study Date: 12/16/2019 09:06 AM Age: 54 yrs Gender: Female Patient Location: [facility] Reason For Study: Chest pain, unspecifie d type, Family history of [place] (myocardial i History: Diabetes, Family Hx, Hyperlipid [...] note might be different from the original. [id number]^QASIM^KERA^Tobi [facility] Echocardiography Laboratory [address] [place] [address] Name: MEGAN CHOI : 1965 Study Date: 12/16/2019 09:06 AM Age: 54 yrs Gender: Female Patient Location: [facility] Reason For Study: Chest pain, unspecifie d type, Family history of [place] (myocardial i History: Diabetes, Family Hx, Hyperlipid [...] Chest pain, unspecified type Family history of [place] (myocardial infarct ion) Family history of ischemic [...] On Sun12/16/19 at 0945, For 1 dose, [facility] [id number] sodium chloride (PF) 0.9% PF flush 10 mL Given 12/16/2019 9:44 AM CDT 10 mLs 10 mL, Intracatheter, ONCE, On Sun12/16/19 at 0945, For 1 dose documented in this encounter Additional Health Concerns Assessment Noted Time PHQ-9 Depression Total Score: 9 08/09/2019 7:03 AM CABLE LACER documented as of this encounter Care Teams Freight Hustler Relationship Specialty Start Date End Date Pankaj Woods PCP - General Nurse Practitioner 01/09/19 12/12/21 SEAN Haley REAL ESTATE ANALYST [address] [facility] [place] [phone] Pankaj Woods Assigned PCP 06/16/18 SEAN Haley REAL ESTATE ANALYST [address] [facility] [place] [phone] Kalyan Galvan Personal Advocate & 08/08/19 Liaison (PAL) Lashae Trevino Pharmacist Pharmacist 10/14/19 12/01/20 Kiran [facility] [address] [place] [id number] documented as of this encounter
--- OUTSIDE RECORDS SUMMARY | 2022-02-06 10:12 | XMS_ITS | Encounter Summary ---
:1965 Author Organization [place] Address [address] [place] [address] Care Team Providers Name Role Phone Noreen Hills APRN CARE MANAGEMENT COORDINATOR Unavailable [phone] Noreen Hills APRN CARE MANAGEMENT COORDINATOR Primary Care Provider [phone] Kalyan Galvan Unavailable Unavailable Lashae Trevino [facility] Unavailable [phone] Encounter Details Date Type Department Care [...] How often do you attend rastafarian or adventism Patient refused 08/08/2019 services? Do [...] Depression Total Score: 9 08/09/2019 7:03 AM LINUX DEVOPS ENGINEER documented as of this encounter Care Teams Hot Packer Relationship Specialty Start Date End Date Noreen Hills PCP - General Nurse Practitioner 01/09/19 12/12/21 SEAN Haley CARE MANAGEMENT COORDINATOR [address] [facility] [address] [place], [place] [address] Noreen Hills PCP 06/16/18 SEAN Haley CARE MANAGEMENT COORDINATOR [address] [facility] [place] [address] Kalyan Galvan Personal Advocate & 08/08/19 Liaison (PAL) Lashae Trevino Pharmacist Pharmacist 10/14/19 [facility]/01/[facility] [address] [facility] [address] [place], [place] [address] documented as of this encounter
--- OUTSIDE RECORDS SUMMARY | 2022-02-06 10:12 | XMS_ITS | Encounter Summary ---
:1965 Author Organization [place] Address [address] [place] [address] Care Team Providers Name Role Phone Noreen Hills APRN TEXTILE CUTTING MACHINE OPERATOR Unavailable [phone] Noreen Hills APRN TEXTILE CUTTING MACHINE OPERATOR Primary Care Provider [phone] Kalyan Galvan Unavailable Unavailable Lashae Trevino [facility] Unavailable [phone] Encounter Details Date Type Department Care [...] How often do you attend adventism or sikhism Patient refused 08/08/2019 services? Do [...] Depression Total Score: 9 08/09/2019 7:03 AM TELECOMMUNICATIONS PROJECT MANAGER documented as of this encounter Care Teams Furniture Fabricator Relationship Specialty Start Date End Date Noreen Hills PCP - General Nurse Practitioner 01/09/19 12/12/21 SEAN Haley TEXTILE CUTTING MACHINE OPERATOR [address] [facility] [address] [place], [place] [address] Noreen Hills Assigned PCP 06/16/18 SEAN Haley TEXTILE CUTTING MACHINE OPERATOR [address] [facility] [address] [address] [place], [place] [address] Kalyan Galvan Personal Advocate & 08/08/19 Liaison (PAL) Lashae Trevino Pharmacist Pharmacist 10/14/19 12/01/[facility] [address] [facility] [address] [place], [place] [address] documented as of this encounter
--- OUTSIDE RECORDS SUMMARY | 2022-02-06 10:12 | XMS_ITS | Encounter Summary ---
:1965 Author Organization [place] Address [address] [place] [address] Care Team Providers Name Role Phone Noreen Hills APRN CABLE FORMER Unavailable [phone] Noreen Hills APRN CABLE FORMER Primary Care Provider [phone] Kalyan Galvan Unavailable Unavailable Lashae Trevino [facility] Unavailable [phone] Reason for Visit Reason Comments Medication Refill Encounter Details Date Type Department Care Team Description 12/10/2019 Refill [facility] Noreen Hills, Medication Refill [place] ESTRADA CABLE FORMER [address] [facility] [address] [place] [address] [address] [place] [address] [place] [address] [phone] Social History Tobacco Use Types Packs/Day Years [...] How often do you attend gnosticism or pentecostal Patient refused 08/08/2019 services? Do [...] Total Score: 9 08/09/2019 7:03 AM WAREHOUSE INCENTIVE SELECTOR documented as of this encounter Care Teams Threading Machine Operator Relationship Specialty Start Date End Date Noreen Hills PCP - General Nurse Practitioner 01/09/19 12/12/21 SEAN Haley CABLE FORMER [address] [facility] [place] [address] Noreen Hills Assigned PCP 06/16/18 SAEN Haley CABLE FORMER [address] [facility] [place] [phone] Kalyan Galvan Personal Advocate & 08/08/19 Liaison (PAL) Lashae Trevino Pharmacist Pharmacist 10/14/19 12/01/20 Kiran [facility] [address] [facility] [place] [address] documented as of this encounter
--- OUTSIDE RECORDS SUMMARY | 2022-02-06 10:12 | XMS_ITS | Encounter Summary ---
:1965 Author Organization [place] Address [address] [place] [address] Care Team Providers Name Role Phone Noreen Hills APRN ROOFER Unavailable [phone] Noreen Hills APRN ROOFER Primary Care Provider [phone] Kalyan Galvan Unavailable Unavailable Lashae Trevino [facility] Unavailable [phone] Reason for Referral Consultation (Routine) - Closed Specialty Diagnoses / Procedures Referred By Contact Refer red To Contact Diagnoses Pain of right thumb Ramin Romero MD [address] [facility] [address] [place], [place] [phone] Referral ID Status Reason Start Date Expiration Date Visits Requ ested Visits Authorized [id number] Closed 01/02/2020 01/01/2021 1 1 iagnostic Imaging XR (Routine) - Closed Specialty Diagnoses / Procedures Referred By Contact Refer red To Contact Diagnoses Pain of right thumb Ramin Romero MD Procedures XR Finger Right G/E 2 Views [address] [facility] [place], [place] [phone] Referral ID Status Reason Start Date Expiration Date Visits Requ ested Visits Authorized [id number] Closed 01/02/2020 01/01/2021 1 1 Reason for Visit Reason Comments Urgent Care Thumb Discomfort thumb pain that started 2 we eks ago- popping in and out of joint- thumb brace isnt helping Encounter Details Date Type Department Care Team Description [facility]/02[facility]2020 [facility] of right [facility] [place] 2019 E (Primary Dx) [address] [address] [place] [address] Social History Tobacco Use Types Packs/Day [...] How often do you attend restorationism or mu-ism Patient refused 08/08/2019 services? Do [...] thumb for now. follow up with an cannon fire direction specialist for further evaluation and treatment. documented [...] ??? fluticasone (FLONASE) 50 MCG/ACT nasal spray [place] 1-2 sprays into both nostrils daily 16 [...] right thumb a lot while working at [employer]. ROS: CONSTITUTIONAL:NEGATIVE for fever INTEGUMENTARY/SKIN: negative [...] at a ligament. PLAN: follow up with cannon fire direction specialist. I ordered an cannon fire direction specialist referral. Continue wearing the right thumb splint Place ice onto the right thumb Rest the right thumb as much as possible. Raimn Romero MD documented in this encounter Plan of Treatment Scheduled Referrals Name Type Priority Associated Diagnoses Order S chedule Orthopedic & Spine Referral Routine Pain of right thumb Ex pected: 01/09/2020 Sweatband Maker Referral (Approxim ate), Expires: 2019 documented as [...] Depression Total Score: 9 08/09/2019 7:03 AM ACCOUNTING PROFESSIONAL documented as of this encounter Care Teams Executive Administrative Assistant Relationship Specialty Start Date End Date Noreen Hills PCP - General Nurse Practitioner 01/09/19 12/12/21 SEAN Haley ROOFER [address] [facility] [place] [phone] Noreen Hills Assigned PCP 06/16/18 SEAN Haley ROOFER [address] [facility] [place] [address] Kalyan Galvan Personal Advocate & 08/08/19 Liaison (PAL) Lashae Trevino Pharmacist Pharmacist 10/14/19 12/01/20 Kiran, [facility] [address] [facility] [place] [phone] documented as of this encounter
--- OUTSIDE RECORDS SUMMARY | 2022-02-06 10:12 | XMS_ITS | Encounter Summary ---
:1965 Author Organization [place] Address [address] [place] [address] Care Team Providers Name Role Phone Noreen Hills APRN CENTER MEDICAL AND LAB DIRECTOR Unavailable [phone] Noreen Hills APRN CENTER MEDICAL AND LAB DIRECTOR Primary Care Provider [phone] Kalyan Galvan Unavailable Unavailable Lashae Trevino [facility] Unavailable [phone] Reason for Visit Reason Onset Date Comments Follow Up 11/11/2019 er follow up Encounter Details Date Type Department Care Team Description 11/11/2019 Virtual Visit [facility] Kleber Lima MD Hyperlipidemia LDL goal <100 (Primary Dx ); Clinic [address] Type 2 diabetes mellitus wit h complication, without long-term current use of insulin (H) [address] [place] [address] [address] [place] [address] (Work) [phone] Social History Tobacco Use Types Packs/Day Years [...] How often do you attend taoist or jew Patient refused 08/08/2019 services? Do [...] would you like to be contacted at? [phone] How would you like to obtain your AVS? MyChart Subjective Megan Choi is a 54 year old female who presents via phone visit today for the following health issues: HPI ED/UC Followup: Facility: [facility] Emergency Department Date of visit: [...] disease YES- multiple family member have had CA Tobacco use: no ?? Precipitating factors: Worse with exertion: YES- felt funny at work, chest started to hurt at work Worse with deep breaths : YES Related to food: no ?? Alleviating factors: Ibuprofen. Therapies Tried and outcome: ibuprofen Patient Active Problem List Diagnosis ??? Migraine headache ??? GERD (gastroesophageal reflux disease) ??? Family history of CA (myocardial infarction) ??? Persistent insomnia ??? Type [...] Relation Age of Onset ??? Cardiovascular Mother [place] age 72 ??? Diabetes Mother Type II ??? Hypertension Mother ??? Lipids Mother ??? Arthritis Mother OA ??? Kidney Disease Mother 70 ??? Cardiovascular Father [place] early 40s, subsequent bipass ??? Hypertension Father [...] ??? fluticasone (FLONASE) 50 MCG/ACT nasal spray [facility] 1-2 sprays into both nostrils daily 16 [...] in mood or affect Objective Reported vitals: [facility] 10/30/2011 healthy, alert and no distress PSYCH: [...] Depression Total Score: 9 08/09/2019 7:03 AM MOLD BUNCH TRIMMER documented as of this encounter Care Teams Education Finance Processor Relationship Specialty Start Date End Date Noreen Hills PCP - General Nurse Practitioner 01/09/19 12/12/21 SEAN Haley CENTER MEDICAL AND LAB DIRECTOR [address] [facility] [place] [address] Noreen Hills Assigned PCP 06/16/18 SEAN Haley CENTER MEDICAL AND LAB DIRECTOR [address] [facility] [place] [address] Kalyan Galvan Personal Advocate & 08/08/19 Liaison (PAL) Lashae Trevino Pharmacist Pharmacist 10/14/19 [facility]/01/[facility] [address] [place] [address] [place] [address] documented as of this encounter
--- OUTSIDE RECORDS SUMMARY | 2022-02-06 10:12 | XMS_ITS | Encounter Summary ---
:1965 Author Organization [place] Address [address] [place] [address] Care Team Providers Name Role Phone Noreen Hills APRN CLEANER LABORATORY EQUIPMENT Unavailable [phone] Noreen Hills APRN CLEANER LABORATORY EQUIPMENT Primary Care Provider [phone] Kalyan Galvan Unavailable Unavailable Lashae Trevino [facility] Unavailable [phone] Encounter Details Date Type Department Care [...] often do you attend latter day or religion Patient refused 08/08/2019 services? Do [...] Depression Total Score: 9 08/09/2019 7:03 AM PRESS BUCKER documented as of this encounter Care Teams Reading Interventionist Relationship Specialty Start Date End Date Noreen Hills PCP - General Nurse Practitioner 01/09/19 12/12/21 SEAN Haley CLEANER LABORATORY EQUIPMENT [address] [facility] [address] [place], [place] [address] Noreen Hills PCP 06/16/18 SEAN Haley CLEANER LABORATORY EQUIPMENT [address] [place] [address] Kalyan Galvan Personal Advocate & 08/08/19 Liaison (PAL) Lashae Trevino Pharmacist Pharmacist 10/14/19 12/01/20 [facility] [address] [facility] [address] [place], [place] [address] documented as of this encounter
--- OUTSIDE RECORDS SUMMARY | 2022-02-06 10:12 | XMS_ITS | Encounter Summary ---
:1965 Author Organization [place] Address [address] [place] [address] Care Team Providers Name Role Phone Noreen Hills APRN TYPING SECTION CHIEF Unavailable [phone] Noreen Hills APRN TYPING SECTION CHIEF Primary Care Provider [phone] Kalyan Galvan Unavailable Unavailable Lashae Trevino [facility] Unavailable [phone] Reason for Visit Diagnostic Imaging XR (Routine) - Closed Specialty Diagnoses / Procedures Referred By Contact Refer red To Contact Diagnoses Pain of right thumb Ramin Romero MD Procedures XR Finger Right G/E 2 Views [address] [phone] Referral ID Status Reason Start Date Expiration Date Visits Requ ested Visits Authorized [id number] Closed 01/02/2020 01/01/2021 1 1 Encounter Details Date Type Department Care Team Description 01/02/2020 Ancillary Procedure [facility] Ramin Romero Pai n of right thumb Clinic Pino SALDANA [address] [place] [address] [place] [address] [address] [place] [address] [place] [address] Social History Tobacco Use Types Packs/Day [...] How often do you attend sabianism or episcopalian Patient refused 08/08/2019 services? Do you belong to any clubs or organizations such as No 08/08/2019 sabianism groups, [employer], Be[employer]an or athletic groups, or school groups? How [...] Depression Total Score: 9 08/09/2019 7:03 AM PARAMEDIC INSTRUCTOR documented as of this encounter Care Teams Diesel Technician Relationship Specialty Start Date End Date Noreen Hills PCP - General Nurse Practitioner 01/09/19 12/12/21 SEAN Haley TYPING SECTION CHIEF [address] [facility] [address] [place], [place] [phone] Noreen Hills Assigned PCP 06/16/18 SEAN Haley TYPING SECTION CHIEF [address] [facility] [place] [phone] Kalyan Galvan Personal Advocate & 08/08/19 Liaison (PAL) Lashae Trevino Pharmacist Pharmacist 10/14/19 12/01/20 Kiran, [facility] [address] [facility] [address] [place], [place] [id number] documented as of this encounter
--- OUTSIDE RECORDS SUMMARY | 2022-02-06 10:12 | XMS_ITS | Encounter Summary ---
:1965 Author Organization [place] Address [address] [place] [address] Care Team Providers Name Role Phone Noreen Hills APRN METALIZING MACHINE OPERATOR AUTOMATIC Unavailable [phone] Noreen Hills APRN METALIZING MACHINE OPERATOR AUTOMATIC Primary Care Provider [phone] Kalyan Galvan Unavailable Unavailable Lashae Trevino [facility] Unavailable [phone] Encounter Details Date Type Department Care [...] How often do you attend religious or taoism Patient refused 08/08/2019 services? Do [...] Depression Total Score: 9 08/09/2019 7:03 AM DIMENSIONAL INSPECTOR documented as of this encounter Care Teams Band Booker Relationship Specialty Start Date End Date Noreen Hills PCP - General Nurse Practitioner 01/09/19 12/12/21 SEAN Haley METALIZING MACHINE OPERATOR AUTOMATIC [address] [facility] [address] [place], [place] [address] Noreen Hills PCP 06/16/18 SEAN Haley METALIZING MACHINE OPERATOR AUTOMATIC [address] [facility] [place] [address] Kalyan Galvan Personal Advocate & 08/08/19 Liaison (PAL) Lashae Trevino Pharmacist Pharmacist 10/14/19 12/01/20 [facility] [address] [facility] [address] [place], [place] [address] documented as of this encounter
--- OUTSIDE RECORDS SUMMARY | 2022-02-06 10:12 | XMS_ITS | Encounter Summary ---
:1965 Author Organization [place] Address [address] [place] [address] Care Team Providers Name Role Phone Noreen Hills APRN REFRIGERATION SUPERVISOR Unavailable [phone] Noreen Hills APRN REFRIGERATION SUPERVISOR Primary Care Provider [phone] Kalyan Galvan Unavailable Unavailable Lashae Trevino [facility] Unavailable [phone] Encounter Details Date Type Department Care [...] How often do you attend scientologist or orthodox Patient refused 08/08/2019 services? Do [...] Depression Total Score: 9 08/09/2019 7:03 AM RIVET HEATER documented as of this encounter Care Teams Oracle Wms Consultant Relationship Specialty Start Date End Date Noreen Hills PCP - General Nurse Practitioner 01/09/19 12/12/21 SEAN Haley REFRIGERATION SUPERVISOR [address] [facility] [address] [place], [place] [address] Noreen Hills PCP 06/16/18 SEAN Haley REFRIGERATION SUPERVISOR [address] [facility] [place] [address] Kalyan Galvan Personal Advocate & 08/08/19 Liaison (PAL) Lashae Trevino Pharmacist Pharmacist 10/14/19 12/01/20 [facility] [address] [facility] [address] [place], [place] [address] documented as of this encounter
--- OUTSIDE RECORDS SUMMARY | 2022-02-06 10:12 | XMS_ITS | Encounter Summary ---
:1965 Author Organization [place] Address [address] [place] [address] Care Team Providers Name Role Phone Noreen Hills APRN, CNP Unavailable [phone] Noreen Hills APRN, CNP Primary Care Provider [phone] Kalyan Galvan Unavailable Unavailable Lashae Trevino [facility] Unavailable [phone] Reason for Visit Reason Onset Date Comments Forms 01/05/2020 Encounter Details Date Type Department Care Team Description 01/05/2020 Telephone [facility] Noreen Hills, Forms Pino ESTRADA RADIO TESTER [address] [facility] [address] [facility] [address] [place] [address] [place] [address] [phone] Social History Tobacco Use Types Packs/Day Years [...] How often do you attend jew or uatsdin Patient refused 08/08/2019 services? Do [...] is ready for pick at the front end mechanic. Pt will slate picker the letter tomorrow. I told her [...] a ligament. ?? PLAN: follow up with cryptologic support specialist. I ordered an cryptologic support specialist referral. Continue wearing the right thumb [...] How would you like the form/letter returned: Validation Specialist Patient Notified form requests are processed in 3-5 business days:Yes Okay to leave a detailed message? Yes Home number on file [phone] (home) Please reach out to pt when ready Kiya Gleason on 01/05/2020 at 10:25 AM documented in this encounter Plan of Treatment Not on filedocumented as of this encounter Visit Diagnoses Not on filedocumented in this encounter Additional Health Concerns Assessment Noted Time PHQ-9 Depression Total Score: 9 08/09/2019 7:03 AM WRAPPER LAYER AND EXAMINER SOFT WORK documented as of this encounter Care Teams Sprayer Operator Relationship Specialty Start Date End Date Noreen Hills PCP - General Nurse Practitioner 01/09/19 12/12/21 SEAN Haley RADIO TESTER [address] [facility] [place] [phone] Noreen Hills Assigned PCP 06/16/18 SEAN Haley RADIO TESTER [address] [facility] [place] [address] Kalyan Galvan Personal Advocate & 08/08/19 Liaison (PAL) Lashae Trevino Pharmacist Pharmacist 10/14/19 12/01/20 CLAUDIA Beck [address] [place] [address] documented as of this encounter
--- OUTSIDE RECORDS SUMMARY | 2022-02-06 10:12 | XMS_ITS | Encounter Summary ---
:1965 Author Organization [place] Address [address] [place] [address] Care Team Providers Name Role Phone Noreen Hills APRN DEALER RELATIONSHIP MANAGER Unavailable [phone] Noreen Hills APRN DEALER RELATIONSHIP MANAGER Primary Care Provider [phone] Kalyan Galvan Unavailable Unavailable Lashae Trevino [facility] Unavailable [phone] Reason for Visit Reason Comments Medication Refill Encounter Details Date Type Department Care Team Description 12/09/2019 Refill [facility] Noreen Hills, Medication Refill Pino ESTRADA DEALER RELATIONSHIP MANAGER [address] [facility] [address] [place] [address] [address] [place] [address] [place] [address] [phone] Social History Tobacco Use Types Packs/Day Years [...] How often do you attend restoration or taoism Patient refused 08/08/2019 services? Do [...] Depression Total Score: 9 08/09/2019 7:03 AM CUSHION WORKER documented as of this encounter Care Teams Auxiliary Equipment Operator Relationship Specialty Start Date End Date Noreen Hills PCP - General Nurse Practitioner 01/09/19 12/12/21 SEAN Haley DEALER RELATIONSHIP MANAGER [address] [facility] [place] [address] Noreen Hills Assigned PCP 06/16/18 SEAN Haley DEALER RELATIONSHIP MANAGER [address] [facility] [place] [phone] Kalyan Galvan Personal Advocate & 08/08/19 Liaison (PAL) Lashae Trevino Pharmacist Pharmacist 10/14/19 12/01/20 Kiran [facility] [address] [facility] [place] [address] documented as of this encounter
--- OUTSIDE RECORDS SUMMARY | 2022-02-06 10:12 | XMS_ITS | Encounter Summary ---
:1965 Author Organization [place] Address [address] [place] [address] Care Team Providers Name Role Phone Noreen Hills APRN LINING STRAP CLOSER Unavailable [phone] Noreen Hills APRN LINING STRAP CLOSER Primary Care Provider [phone] Kalyan Galvan Unavailable Unavailable Lashae Trevino [facility] Unavailable [phone] Reason for Visit Reason Comments Pain Consultation (Routine) - Closed Specialty Diagnoses / Procedures Referred By Contact Refer red To Contact Diagnoses Pain of right thumb Ramin Romero MD 2019 [facility] 06 11 [place], [place] [phone] Referral ID Status Reason Start Date Expiration Date Visits Requ ested Visits Authorized [id number] Closed 01/02/2020 01/01/2021 1 1 Encounter Details Date Type Department Care Team Description 01/12/[address] 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 She has been able to modify her [...] Relation Age of Onset ??? Cardiovascular Mother [place] age 72 ??? Diabetes Mother Type II ??? Hypertension Mother ??? Lipids Mother ??? Arthritis Mother OA ??? Kidney Disease Mother 70 ??? Cardiovascular Father [place] early 40s, subsequent bipass ??? Hypertension Father [...] a week Gets together: Patient refused Attends confucianist service: Patient refused Active member of club or organization: No Attends meetings of clubs or organizations: Patient refused Relationship status: ??? Intimate partner violence Fear of current or ex partner: Not on file Emotionally abused: Not on file Physically abused: Not on file Forced sexual activity: Not on file Other Topics Concern ??? Parent/sibling w/ CABG, [place] or angioplasty before 65F 55M? No Social [...] ??? fluticasone (FLONASE) 50 MCG/ACT nasal spray [place] 1-2 sprays into both nostrils daily 16 [...] Depression Total Score: 9 08/09/2019 7:03 AM LOTUS NOTES ADMINISTRATOR documented as of this encounter Care Teams Wooden Frame Builder Relationship Specialty Start Date End Date Noreen Hills PCP - General Nurse Practitioner 01/09/19 12/12/21 SEAN Haley LINING STRAP CLOSER [address] [facility] [place] [address] Noreen Hills Assigned PCP 06/16/18 SEAN Haley LINING STRAP CLOSER [address] [facility] [place] [address] Kalyan Galvan Personal Advocate & 08/08/19 Liaison (PAL) Lashae Trevino Pharmacist Pharmacist 10/14/19 12/01/20 [facility] [address] [facility] [place] [address] documented as of this encounter
--- OUTSIDE RECORDS SUMMARY | 2022-02-06 10:12 | XMS_ITS | Encounter Summary ---
:1965 Author Organization [place] Address [address] [place] [address] Care Team Providers Name Role Phone Noreen Hills APRN SWIMMING POOL CLEANER Unavailable [phone] Noreen Hills APRN SWIMMING POOL CLEANER Primary Care Provider [phone] Kalyan Galvan Unavailable Unavailable Lashae Trevino [facility] Unavailable [phone] Reason for Visit Reason Comments Sleep Problem STM Encounter Details Date Type Department Care Team Description 12/10/[address] [facility] Sleep Problem (STM) [facility] [address], [address] [place] [address] Social History Tobacco Use Types [...] How often do you attend lutheran or gnosticism Patient refused 08/08/2019 services? Do [...] Depression Total Score: 9 08/09/2019 7:03 AM BILLBOARD POSTER HELPER documented as of this encounter Care Teams Pedorthist Relationship Specialty Start Date End Date Noreen Hills PCP - General Nurse Practitioner 01/09/19 12/12/21 SEAN Haley SWIMMING POOL CLEANER [address] [facility] [place] [address] Noreen Hills Assigned PCP 06/16/18 SEAN Haley SWIMMING POOL CLEANER [address] [facility] [place] [phone] Kalyan Galvan Personal Advocate & 08/08/19 Liaison (PAL) Lashae Trevino Pharmacist Pharmacist 10/14/19 12/01/20 Kiran, [facility] [address] [facility] [address] [place] [phone] documented as of this encounter
--- OUTSIDE RECORDS SUMMARY | 2022-02-06 10:13 | XMS_ITS | Encounter Summary ---
:1965 Author Organization [place] Address [address] [place] [address] Care Team Providers Name Role Phone Noreen Hills APRN LNA Unavailable [phone] Noreen Hills APRN LNA Primary Care Provider [phone] Reason for Visit Reason Comments Medication Refill Encounter Details Date Type Department Care Team Description 07/08/2019 Refill [facility] Noreen Hills, Medication Refill Pino ESTRADA LNA [address] [place] [address] [place] [address] [phone] Social History Tobacco Use Types Packs/Day Years [...] How often do you attend gnosticism or samaritan Patient refused 08/08/2019 services? Do [...] Deisy Moon RN - 07/08/2019 3:47 PM HEALTH SERVICES INFORMATION SPECIALIST Routing refill request to provider for review/approval because: Drug not on the G refill protocol Next 5 appointments (look out 90 days) Aug 08, 2019 9:15 AM HEALTH SERVICES INFORMATION SPECIALIST (Arrive by 8:50 AM) Adult Preventative Visit with Noreen Hills [facility]N [facility] [address] [place] [address] [address] [employer] [address] TH SERVICES INFORMATION SPECIALIST documented in this encounter Plan of Treatment Not on filedocumented as of this encounter Visit Diagnoses Diagnosis Constipation, unspecified constipation t ype documented in this encounter Additional Health Concerns Assessment Noted Time PHQ-9 Depression Total Score: 10 01/02/2019 10:18 AM C DT documented as of this encounter Care Teams Geoint Analyst Relationship Specialty Start Date End Date Noreen Hills APRN LNA PCP - General Nurse Practitioner 01/09/19 12/12/[address] [place] [address] [place] [address] Noreen Hills APRN LNA Assigned PCP 06/16/[address] [place] [address] [place] [address] documented as of this encounter
--- OUTSIDE RECORDS SUMMARY | 2022-02-06 10:13 | XMS_ITS | Encounter Summary ---
:1965 Author Organization [place] Address [address] [place] [address] Care Team Providers Name Role Phone Noreen Hills APRN DESIGN AGENT Unavailable [phone] Noreen Hills APRN DESIGN AGENT Primary Care Provider [phone] Kalyan Galvan Unavailable Unavailable Lashae Trevino [facility] Unavailable [phone] Reason for Visit Reason Onset Date Comments Recheck Medication 10/28/2019 Cyclobenzaprine Encounter Details Date Type Department Care Team Description 10/28/2019 Virtual Visit [facility] Noreen Hills Dry mouth (Primary Dx); Clinic Pino Haley APRN Pain of left lower leg; 3305 [facility] Migraine without status migrainosus, not intractable, unspecified migraine type; [address] [facility] Type 2 diabetes mellitus wit h complication, without long-term current use of insulin (H) [address] [facility] [place] [address] [place] [id number] Social History Tobacco Use Types Packs/Day Years [...] How often do you attend voodoo or confucianist Patient refused 08/08/2019 services? Do you belong to any clubs or organizations such as No 08/08/2019 voodoo groups, Webss, fraTravark or athletic groups, or school groups? How [...] this encounter Progress Notes Noreen Hills, SEAN DESIGN AGENT - 10/28/2019 11:30 AM CDT Megan hCoi is a 54 year old female who [...] would you like to be contacted at? [phone] How would you like to obtain your [...] called her but they were cut off. (G4.156) Migraine without status migrainosus, not intractable, unspecified [...] 6.1 (H) 0 - 5.6 % 01/13/2020 [place] 9:27 AM CDT [facility] Comment: [...] Organization Address City/State/ZIP Code Phon e Number [address] [place] [address] documented in this encounter Visit Diagnoses Diagnosis [...] Depression Total Score: 9 08/09/2019 7:03 AM POULTRY EVISCERATOR documented as of this encounter Care Teams President And Chief Commercial Officer Relationship Specialty Start Date End Date Noreen Hills PCP - General Nurse Practitioner 01/09/19 12/12/21 SEAN Haley CNP [address] [facility] [place] [address] Noreen Hills Assigned PCP 06/16/18 SEAN Haley CNP [address] [facility] [place] [address] Kalyan Galvan Personal Advocate & 08/08/19 Liaison (PAL) Lashae Trevino Pharmacist Pharmacist 10/14/19 12/01/[address] [facility] [address] [facility] [place] [id number] documented as of this encounter
--- OUTSIDE RECORDS SUMMARY | 2022-02-06 10:13 | XMS_ITS | Encounter Summary ---
:1965 Author Organization [place] Address [address] [place] [address] Care Team Providers Name Role Phone Noreen Hills APRN RADIOLOGY SPECIAL PROCEDURE TECH Unavailable [phone] Noreen Hills APRN RADIOLOGY SPECIAL PROCEDURE TECH Primary Care Provider [phone] Kalyan Galvan Unavailable Unavailable Lashae Trevino [facility] Unavailable [phone] Encounter Details Date Type Department Care [...] How often do you attend caodaism or taoism Patient refused 08/08/2019 services? Do [...] Total Score: 9 08/09/2019 7:03 AM VACUUM PAN TENDER documented as of this encounter Care Teams Manager Mission Relationship Specialty Start Date End Date Noreen Hills PCP - General Nurse Practitioner 01/09/19 12/12/21 SEAN Haley RADIOLOGY SPECIAL PROCEDURE TECH [address] [facility] [address] [place], [place] [address] Noreen Hills PCP 06/16/18 SEAN Haley RADIOLOGY SPECIAL PROCEDURE TECH [address] [facility] [place] [address] Kalyan Galvan Personal Advocate & 08/08/19 Liaison (PAL) Lashae Trevino Pharmacist Pharmacist 10/14/19 12/01/20 [facility] [address] [facility] [address] [place], [place] [address] documented as of this encounter
--- OUTSIDE RECORDS SUMMARY | 2022-02-06 10:13 | XMS_ITS | Encounter Summary ---
:1965 Author Organization [place] Address [address] [place] [address] Care Team Providers Name Role Phone Noreen Hills APRN [facility] Unavailable [phone] Noreen Hills APRN [facility] Primary Care Provider [phone] Kalyan Galvan Unavailable Unavailable Lashae Trevino [facility] Unavailable [phone] Reason for Visit Reason Comments Medication Therapy Management Med Therapy Management (Routine) - Closed Specialty Diagnoses / Procedures Referred By Contact Refer red To Contact Pharmacist Diagnoses Dry mouth Noreen Hills APRN [facility] [address] [facility] [place] [address] Referral ID Status Reason Start Date Expiration Date Visits Requ ested Visits Authorized [id number] Closed 09/30/2019 09/29/2020 1 1 Encounter Details Date Type Department Care Team Description 10/14/2019 [facility] [place] Lashae Trevino Medic ation Therapy Health/Nurse Clinic Pino Beck [facility] Management Visit [address] [place] [address] [address] [place] [address] (Work) [phone] Social History Tobacco Use Types Packs/Day Years [...] How often do you attend zoroastrianism or confucianist Patient refused 08/08/2019 services? Do you belong to any clubs or organizations such as No 08/08/2019 zoroastrianism groups, unions, [employer] or athletic groups, or school groups? How [...] of this encounter Progress Notes Lashae Trevino, [facility] - 10/14/2019 9:30 AM CDT MTM ENCOUNTER SUBJECTIVE/OBJECTIVE: Megan Choi is a 54 year old female called for an initial visit. She was referred to me from Noreen [facility]. Patient consented to a telehealth visit: yes Telemedicine Visit Details Type of service: Telephone visit Start Time: 9:31 AM End Time: 10:47 AM Originating Location (pt. Location): Home Distant Location (provider location): [facility] Mode of Communication: Telephone Chief Complaint: Biggest concern is dry mouth. Also wondering if any medications could be causing insomnia. Allergies/ADRs: Reviewed in [facility] Tobacco: reports that she has never smoked. She has never used smokeless tobacco. Alcohol: Less than 1 beverage / month Caffeine: was caffeine free, drinking diet caffeine pop, maybe 3 a day. Activity: works 4 days a week and on her feet 7h a day. PMH: Reviewed in [facility] Medication Adherence/Access: no issues reported Dry mouth: Teeth, tongue and mouth are very dry. Feels she can only get a few words out with gettingstuck. This is all day and makes it hard for her to work as she needs to socialize with customers ([facility]). Has had issues with this for [...] not completed yet. She has tried melatonin nghp-omn-hazmscc but was not effective. She is not [...] for multivitamin due to difficulty of purchasing oter-tqb-rewcqij as many stores are out of stock. [...] Trevino PharmD Medication Therapy Management Pharmacist Pager#: [phone] documented in this encounter Plan of Treatment [...] Depression Total Score: 9 08/09/2019 7:03 AM TACTICAL INTELLIGENCE OFFICER documented as of this encounter Care Teams Decorator Mannequin Relationship Specialty Start Date End Date Noreen Hills PCP - General Nurse Practitioner 01/09/19 12/12/21 SEAN Haley AUTOMATION CONTROLS SPECIALIST [address] [facility] [place] [address] Noreen Hills Assigned PCP 06/16/18 SEAN Haley AUTOMATION CONTROLS SPECIALIST [address] [facility] [place] [phone] Kalyan Galvan Personal Advocate & 08/08/19 Liaison (PAL) Lashae Trevino Pharmacist Pharmacist 10/14/19 12/01/20 [facility] [address] [facility] [place] [phone] documented as of this encounter
--- OUTSIDE RECORDS SUMMARY | 2022-02-06 10:13 | XMS_ITS | Encounter Summary ---
:1965 Author Organization [place] Address [address] [place] [address] Care Team Providers Name Role Phone Noreen Hills APRN PHARMACEUTICAL COMPOUNDING SUPERVISOR Unavailable [phone] Noreen Hills APRN, CNP Primary Care Provider [phone] Kalyan Galvan Unavailable Unavailable Encounter Details Date [...] Total Score: 9 08/09/2019 7:03 AM SUPERVISOR TANK STORAGE documented as of this encounter Care Teams Spool Winder Relationship Specialty Start Date End Date Noreen Hills PCP - General Nurse Practitioner 01/09/19 12/12/21 SEAN Haley PHARMACEUTICAL COMPOUNDING SUPERVISOR [address] [facility] [place] [address] Noreen Hills Assigned PCP 06/16/18 SEAN Haley PHARMACEUTICAL COMPOUNDING SUPERVISOR [address] [facility] [place] [address] Kalyan Galvan Personal Advocate & 08/08/19 Liaison (PAL) documented as of this encounter
--- OUTSIDE RECORDS SUMMARY | 2022-02-06 10:13 | XMS_ITS | Encounter Summary ---
:1965 Author Organization [place] Address [address] [place] [address] Care Team Providers Name Role Phone Noreen Hills APRN, CNP Unavailable [phone] Noreen Hills APRN, CNP Primary Care Provider [phone] Kalyan Galvan Unavailable Unavailable Reason for Referral Consultation (Routine) - Closed Specialty Diagnoses / Procedures Referred By Contact Refer red To Contact Orthopedics and Sports Diagnoses Pain of left lower leg Noreen Hills [facility] SEAN Haley [facility] [address] [place] [address]?? [place] [address] [facility] [place] [address] [address] [place] [address] Phone: Fax: Referral ID Status Reason Start Date Expiration Date Visits Requ ested Visits Authorized [id number] Closed 09/30/2019 09/29/2020 1 1 ed Therapy Management (Routine) - Closed Specialty Diagnoses / Procedures Referred By Contact Refer red To Contact Pharmacist Diagnoses Dry mouth Noreen Hills APRN [address] [place] [address] Referral ID Status Reason Start Date Expiration Date Visits Requ ested Visits Authorized [id number] Closed 09/30/2019 09/29/2020 1 1 Reason for Visit Reason Onset Date Comments Weight Problem 09/30/2019 Encounter Details Date Type Department Care Team Description 09/30/2019 Virtual Visit [facility] Noreen Hills Dry mouth (Primary Dx); Clinic Pino Haley APRN Pain of left lower leg; [address] [employer] MATERIAL REQUIREMENTS PLANNING MANAGER Taste disorder; [address] [facility] Leg swelling; [address] [facility] Migraine without status migrainosus, not intractable, unspecified migraine type; [place] [address] [place] [address] Morbid obesity (H) [phone] Social History Tobacco Use Types Packs/Day Years [...] How often do you attend sikh or jehovah's witness Patient refused 08/08/2019 services? [...] this encounter Progress Notes Noreen Hills APRN MATERIAL REQUIREMENTS PLANNING MANAGER - 09/30/2019 9:05 AM CDT Megan Choi [...] No red flags. - Orthopedic & Spine Food And Beverage Cashier Referral; Future 3. Taste disorder Everything tastes [...] Pain of left lower leg Expected: 09/30/2019 Food And Beverage Cashier Referral (Approxim ate), Expires: 2020 documented as [...] Depression Total Score: 9 08/09/2019 7:03 AM JAVA SOFTWARE DEVELOPER documented as of this encounter Care Teams Dismantler Relationship Specialty Start Date End Date Noreen Hills PCP - General Nurse Practitioner 01/09/19 12/12/21 SEAN Haley CNP [facility] [place] [address] Noreen Hills Assigned PCP 06/16/18 SEAN Haley CNP [facility] [place] [address] Kalyan Galvan Personal Advocate & 08/08/19 Liaison (PAL) documented as of this encounter
--- OUTSIDE RECORDS SUMMARY | 2022-02-06 10:13 | XMS_ITS | Encounter Summary ---
:1965 Author Organization [place] Address [address] [place] [address] Care Team Providers Name Role Phone Noreen Hills APRN HOG FEEDER Unavailable [phone] Noreen Hills APRN, CNP Primary Care Provider [phone] Kalyan Galvan Unavailable Unavailable Encounter Details Date [...] How often do you attend adventism or mandaen Patient refused 08/08/2019 services? Do [...] Total Score: 9 08/09/2019 7:03 AM SUPERINTENDENT OVERHEAD DISTRIBUTION documented as of this encounter Care Teams Forming Yardage Control Operator Relationship Specialty Start Date End Date Noreen Hills PCP - General Nurse Practitioner 01/09/19 12/12/21 SEAN Haley HOG FEEDER [address] [facility] [place] [address] Noreen Hills Assigned PCP 06/16/18 SEAN aHley HOG FEEDER [address] [facility] [place] [address] Kalyan Galvan Personal Advocate & 08/08/19 Liaison (PAL) documented as of this encounter
--- OUTSIDE RECORDS SUMMARY | 2022-02-06 10:13 | XMS_ITS | Encounter Summary ---
:1965 Author Organization [place] Address [address] [place] [address] Care Team Providers Name Role Phone Noreen Hills APRN LABORATORY ENGINEER Unavailable [phone] Noreen Hills APRN, CNP Primary Care Provider [phone] Kalyan Galvan Unavailable Unavailable Encounter Details Date [...] How often do you attend catholic or jehovah's witness Patient refused 08/08/2019 services? [...] Depression Total Score: 9 08/09/2019 7:03 AM ENGINEERING INTERN documented as of this encounter Care Teams Poke In Relationship Specialty Start Date End Date Noreen Hills PCP - General Nurse Practitioner 01/09/19 12/12/21 SEAN Haley LABORATORY ENGINEER [address]305 [facility] [place] [address] Noreen Hills Assigned PCP 06/16/18 SEAN Haley LABORATORY ENGINEER 3305 [facility] [place] [address] Kalyan Galvan Personal Advocate & 08/08/19 Liaison (PAL) documented as of this encounter
--- OUTSIDE RECORDS SUMMARY | 2022-02-06 10:13 | XMS_ITS | Encounter Summary ---
:1965 Author Organization [place] Address [address] [place] [address] Care Team Providers Name Role Phone Noreen Hills APRN, CNP Unavailable [phone] Noreen Hills APRN, CNP Primary Care Provider [phone] Kalyan Galvan Unavailable Unavailable Reason for Referral Consultation (Routine) - Closed Specialty Diagnoses / Procedures Referred By Contact Refer red To Contact Diagnoses Snoring Noreen Hills [facility] SEAN [address] [place] [address] [place] [address] Referral ID Status Reason Start Date Expiration Date Visits Requ ested Visits Authorized [id number] Closed 08/08/2019 08/07/2020 1 1 REFERRAL Reason for Visit Reason Comments Physical Encounter Details Date Type Department Care Team Description [facility] Routine ge neral medical examination at a health care facility (Primary Dx); Clinic Pino Haley APRN Moderate episode of recurren t major depressive disorder (H); 3[address] [facility] Persistent insomnia; [address] [facility]; [address] [facility] Vitamin D deficiency; [place] [address] [place] [address] Migraine without status migrainosus, not intractable, unspecified migraine type; [phone] Morbid obesity (H); (Work) Snoring; [phone] Type 2 diabetes mellitus with complication, without [...] How often do you attend faith or taoism Patient refused 08/08/2019 services? Do [...] Comments Blood Pressure 104/62 08/08/2019 8:59 AM RN REFERRAL Pulse 84 08/08/2019 8:59 AM RN REFERRAL Temperature 36.5 ??C (97.7 ??F) 08/08/2019 8:59 AM RN REFERRAL Respiratory Rate 16 08/08/2019 8:59 AM RN REFERRAL Oxygen Saturation 97% 08/08/2019 8:59 AM RN REFERRAL Inhaled Oxygen Concentration - - Weight 88 kg (193 lb 14.4 oz) 08/08/2019 8:59 AM RN REFERRAL Height 157.5 cm (5' 2) 08/08/2019 8:59 AM RN REFERRAL Body Mass Index 35.46 08/08/2019 8:59 AM RN REFERRAL documented in this encounter Patient Instructions Patient [...] eye doctor every 1 to 2 years. REFERRAL documented in this encounter Progress Notes Noreen [...] NEG Negative Negative Test canceled - Lab eating disorder specialist error(A) HPV 18 DNA NEG Negative Negative Test canceled - Lab eating disorder specialist error(A) OTHER HR HPV NEG Negative Negative Test canceled - Lab eating disorder specialist error(A) Reviewed and updated as needed this [...] - SLEEP EVALUATION & MANAGEMENT REFERRAL - [facility] [phone] (Age 18 and up); Future 9. Type [...] - fluticasone (FLONASE) 50 MCG/ACT nasal spray; [place] 1-2 sprays into both nostrils daily Dispense: [...] Lung CA Screening Noreen Hills APRN CNP [facility] Christi Hanna MA - 08/08/2019 9:15 AM CST Forwarded to SB# RACHEL kennedy. This is regarding Ambien-verified with provider Christi Panda CMA Lashae Dorsey [facility] - 08/08/2019 9:15 AM CST [...] Trevino, PharmD Medication Therapy Management Pharmacist Pager#: [phone] REFERRAL documented in this encounter Plan of Treatment Scheduled Referrals Name Type Priority Associated Diagnoses Order S chedule SLEEP EVALUATION & Referral Routine Snoring 1 Occurre nces starting MANAGEMENT REFERRAL - 2019 until ADULT -[place] [facility] [phone] (Age 18 and up) documented as of this encounter Procedures Procedure Name Priority Date/Time Associated Diagnosis Comme nts VITAMIN D DEFICIENCY Routine 08/08/2019 10:17 Vitamin D defici ency Results for this SCREENING AM RN REFERRAL procedure are i n the results section. ALBUMIN RANDOM URINE Routine 08/08/2019 10:17 Routine general Results for this QUANTITATIVE AM RN REFERRAL medical examination procedur e are in at a health care the results facility section. LIPID REFLEX TO Routine 08/08/2019 10:17 Routine general Resul ts for this DIRECT LDL PANEL AM RN REFERRAL medical examination proc edure are in at a [facility] care the results facility section. HEMOGLOBIN A1C Routine 08/08/2019 10:17 Routine general Result s for this AM RN REFERRAL medical examination procedur e are in at a health care the results facility section. BASIC METABOLIC PANEL Routine 08/08/2019 10:17 Routine general Results for this AM RN REFERRAL medical examination procedur e are in at a health care the results facility section. documented in this encounter Results Vitamin D Deficiency (08/08/2019 10:17 AM RN REFERRAL) P athologist Signature Vitamin D 49 20 - 75 08/08/2019 [facility] Deficiency ug/L 4:03 PM RN REFERRAL [facility] Comment: Season, race, dietary intake, and treatm ent affect the concentration of 03-sqjprzf-Xcrzbth D. Values may decreas e during winter [...] Blood specimen 08/08/2019 10:17 0 (specimen) AM RN REFERRAL 10:18 AM RN REFERRAL Noreen Hills APRN, CNP LAB - BLOOD ORDERABLES Performing Organization Address City/State/ZIP Code Phon e Number [facility] [address] [place] [address] [facility] (ABNORMAL) HEMOGLOBIN A1C (08/08/2019 10:17 AM RN REFERRAL) athologist Signature Hemoglobin A1C 6.2 (H) 0 - 5.6 % 08/08/2019 [place] 10:44 AM [facility] Comment: Normal <5.7% Prediabetes 5.7-6.4% ??Diab etes 6.5% or higher - adopted from ADA consensus guidelines. Specimen Anatomical Collection Method Collection Time Receive d Time (Source) Location / / Volume Laterality Blood specimen 08/08/2019 10:17 0 (specimen) AM RN REFERRAL 10:18 AM RN REFERRAL Noreen Hills APRN, CNP LAB - BLOOD ORDERABLES Performing Organization Address City/State/ZIP Code Phon e Number [facility] [address] [place] [address] Albumin Random Urine Quantitative with Creat Ratio (08/08/2019 10:17 AM RN REFERRAL) athologist Signature Creatinine 154 mg/dL 08/09/2019 [place] Urine 1:54 PM RN REFERRAL [facility] Albumin Urine 11 mg/L 08/09/2019 [place] mg/L 1:59 PM RN REFERRAL [facility] Albumin Urine 7.14 0 - 25 08/09/2019 [place] mg/g Cr mg/g Cr 1:59 PM RN REFERRAL [facility] Specimen Anatomical Collection Method Collection Time Receive d Time (Source) Location / / Volume Laterality Urine specimen 08/08/2019 10:17 0 (specimen) AM RN REFERRAL 10:18 AM RN REFERRAL Noreen Hills APRN, CNP LAB - URINE ORDERABLES Performing Organization Address City/State/ZIP Code Phon e Number [facility] [address] [place] [address] (ABNORMAL) Lipid panel reflex to direct LDL Fasting (08/08/2019 10:17 AM RN REFERRAL) P athologist Signature Cholesterol 180 <200 mg/dL 08/08/2019 [facility] 7:47 PM [facility] Triglycerides 153 (H) <150 mg/dL 08/08/2019 [place] 7:47 PM [facility] Comment: Borderline high: ??150-199 mg/dl High: ? 200-499 mg/dl Very high: ? >499 mg/dl HDL Cholesterol 46 (L) >49 mg/dL 08/08/2019 7:47 PM [facility] LDL Cholesterol 103 (H) <100 mg/dL 08/08/2019 7:47 PM [facility] Comment: Above desirable: ??100-129 mg/dl Borderline High: ??130-159 mg/dL High: ? 160-189 mg/dL Very high: ? >189 mg/dl Non HDL Cholesterol 134 (H) <130 mg/dL 08/08/2019 7:47 PM RN REFERRAL [facility] Comment: Above Desirable: ??130-159 mg/dl Borderline high: ??160-189 mg/dl High: ? 190-219 mg/dl Very high: ? >219 mg/dl Specimen Anatomical Collection Method Collection Time Receive d Time (Source) Location / / Volume Laterality Blood specimen 08/08/2019 10:17 0 (specimen) AM RN REFERRAL 10:18 AM RN REFERRAL Noreen Hills METAL CABINET FINISHER DRAPERY SEAMSTRESS LAB - BLOOD ORDERABLES Performing Organization Address City/State/ZIP Code Phon e Number [facility] [address] [place] [address] [phone] [facility] [address] [place] [address], U [phone] (ABNORMAL) BASIC METABOLIC PANEL (08/08/2019 10:17 AM RN REFERRAL) [facility] gist Method Time Signature Sodium 143 133 - 144 08/08/2019 [place] mmol/L 7:27 PM [facility] Potassium 4.3 3.4 - 5.3 08/08/2019 [place] mmol/L 7:27 PM [facility] Chloride 112 (H) 94 - 109 08/08/2019 [place] mmol/L 7:27 PM [facility] Carbon Dioxide 26 20 - 32 08/08/2019 [place] mmol/L 7:47 PM [facility] Anion Gap 5 3 - 14 08/08/2019 [place] mmol/L 7:47 PM [facility] Glucose 120 (H) 70 - 99 08/08/2019 [place] mg/dL 7:47 PM [facility] Urea Nitrogen 16 7 - 30 08/08/2019 [place] mg/dL 7:47 PM [facility] Creatinine 0.72 0.52 - 08/08/2019 [place] 1.04 mg/dL 7:47 PM [facility] GFR Estimate >90 >60 08/08/2019 [place] mL/min/{1. 7:47 PM [facility] 73_m2} HOSPITAL Comment: Non GFR Calc Starting 05/28/2018, serum creatinine ba sed estimated GFR (eGFR) will be calculated using the Chronic Kidney Dise [facility] Epidemiology Collaboration (CKD-EPI) equation. GFR Estimate If >90 >60 mL/min/{1.73_m2} 08/08/2019 7: 47 PM [facility] Comment: GFR Calc Starting 05/28/2018, serum creatinine ba sed estimated GFR (eGFR) will be calculated using the Chronic Kidney Dise [facility] Epidemiology Collaboration (CKD-EPI) equation. Calcium 9.5 8.5 - 10.1 mg/dL 08/08/2019 7:[address] [facility] Specimen Anatomical Collection Method Collection Time Receive d Time (Source) Location / / Volume Laterality Blood specimen 08/08/2019 10:17 0 (specimen) AM RN REFERRAL 10:18 AM RN REFERRAL Noreen Hills APRN DRAPERY SEAMSTRESS LAB - BLOOD ORDERABLES Performing Organization Address City/State/ZIP Code Phon e Number [facility] [address] [place] [address] [facility] [address] [place], [place] [address] [phone] [place] [address] [place], [place] [address], U [phone] documented in this encounter Visit Diagnoses Diagnosis [...] Total Score: 9 08/09/2019 7:03 AM RN REFERRAL documented as of this encounter Care Teams Interior Paneler Relationship Specialty Start Date End Date Noreen Hills PCP - General Nurse Practitioner 01/09/19 12/12/21 SEAN Haley DRAPERY SEAMSTRESS [address] [facility] [place] [address] Noreen Hills Assigned PCP 06/16/18 SEAN Haley DRAPERY SEAMSTRESS [address] [facility] [place] [address] Kalyan Galvan Personal Advocate & 08/08/19 Liaison (PAL) documented as of this encounter
--- OUTSIDE RECORDS SUMMARY | 2022-02-06 10:13 | XMS_ITS | Encounter Summary ---
:1965 Author Organization [place] Address [address] [place] [address] Care Team Providers Name Role Phone Noreen Hills APRN SEMICONDUCTOR PACKAGES LEAK TESTER Unavailable [phone] Noreen Hills APRN SEMICONDUCTOR PACKAGES LEAK TESTER Primary Care Provider [phone] Kalyan Galvan Unavailable Unavailable Encounter Details Date Type Department Care Team Description 10/03/2019 Telephone [facility] Lashae Trevino [place] [facility] [address] [place] [address] [address] [place] [address] [phone] Social History Tobacco Use Types Packs/Day Years [...] How often do you attend advent or sikhism Patient refused 08/08/2019 services? Do [...] Miscellaneous Notes Telephone Encounter - Lashae Trevino, [facility] - 10/06/2019 3:17 PM CDT Received call back earlier today, pt request call back after 3pm today. No answer, LVM to call clinic back to schedule MTM visit, referral per PCP. Lashae Trevino, PharmD Medication Therapy Management Pharmacist Pager#: [phone] Telephone Encounter - Edel Mosqueda CMA - 10/03/2019 8:31 AM CDT LVM to call back for consent. Edel Mosqueda MA documented in this encounter Plan of Treatment Not on filedocumented as of this encounter Visit Diagnoses Not on filedocumented in this encounter Additional Health Concerns Assessment Noted Time PHQ-9 Depression Total Score: 9 08/09/2019 7:03 AM WELDER/FITTER documented as of this encounter Care Teams Shelver Relationship Specialty Start Date End Date Noreen Hills PCP - General Nurse Practitioner 01/09/19 12/12/21 SEAN Haley SEMICONDUCTOR PACKAGES LEAK TESTER [address] [facility] [place] [address] Noreen Hills Assigned PCP 06/16/18 SEAN Haley SEMICONDUCTOR PACKAGES LEAK TESTER 3[address] [facility] [place] [address] Kalyan Galvan Personal Advocate & 08/08/19 Liaison (PAL) documented as of this encounter
--- OUTSIDE RECORDS SUMMARY | 2022-02-06 10:13 | XMS_ITS | Encounter Summary ---
:1965 Author Organization [place] Address [address] [place] [address] Care Team Providers Name Role Phone Noreen Hills APRN UTILITY LOCATE TECHNICIAN Unavailable [phone] Noreen Hills APRN, CNP Primary Care Provider [phone] Kalyan Galvan Unavailable Unavailable Lashae Trevino [facility] Unavailable [phone] Eduardo Sharma MD Unavailable Rios Monteiro MD Unavailable Marcelo Artis PA-C Unavailable [phone] Rodrigo Man PA-C Unavailable [phone] Reason for Visit Reason Onset Date Comments Refill Request 08/08/2019 DULoxetine (CYMBALTA ) 30 MG capsule Encounter Details Date Type Department Care Team Description 08/08/2019 Refill [facility] Noreen Hills Req [facility] Pino Haley APRN CNP (DULoxetine (CYMBALTA) [address] [facility] 30 MG capsule) [facility] [address] [place] [address] [place] [address] [phone] Social History Tobacco Use Types Packs/Day Years [...] How often do you attend nondenominational or worship Patient refused 08/08/2019 services? Do [...] this in for her. Radha Manning RN [facility] -- Triage Nurse RPILLAR TRACTOR OPERATOR Telephone Encounter - Noreen Hills APRN CNP - 08/11/2019 9:41 AM CATERPILLAR TRACTOR OPERATOR Please verify that she was previously taking 1 tab twice a day. If so, please switch it to 1, 60mg tab, once per day. Pls notify her of the change. RPILLAR TRACTOR OPERATOR Telephone Encounter - Gayathri Mcallister RN - 08/11/2019 9:38 AM CST Please review sig for duloxetine, hydrochlorothiazide and metformin ( per review of last office visit 2000 mg daily of metformin, I am not sure about Duloxetine sig and dispense amount, Thank you) Gayathri Mcallister RN Message handled by Nurse Triage. RPILLAR TRACTOR OPERATOR Telephone Encounter - Kartik Javier - 08/08/2019 5:46 PM CST Also Review Rx directions for Metformin hydrochloride 500 mg. Pharmacy is requesting clarification. RPILLAR TRACTOR OPERATOR Telephone Encounter - Kartik Javier - 08/08/2019 2:39 PM CST Script Clarification: Rx has two sets of directions. Please send new Rx with the Proper Directions. Thanks. RPILLAR TRACTOR OPERATOR documented in this encounter Plan of Treatment Not on filedocumented as of this encounter Visit Diagnoses Diagnosis Fibromyalgia Mylagia and myositis, unspecified documented in this encounter Additional Health Concerns Infection Onset Date Last Indicated Resolved Time Rule Out COVID-19 08/25/2020 08/25/2020 08/26/2020 3:2 3 PM CDT Assessment Noted Time PHQ-9 Depression Total Score: 9 08/09/2019 7:03 AM CATERPILLAR TRACTOR OPERATOR documented as of this encounter Care Teams Outside Plant Engineer Relationship Specialty Start Date End Date Noreen Hills PCP - General Nurse Practitioner 01/09/19 12/12/21 SEAN Haley UTILITY LOCATE TECHNICIAN [address]305 [facility] [place] [address] Noreen Hills Assigned PCP 06/16/18 SEAN Haley UTILITY LOCATE TECHNICIAN [address]305 [facility] [place] [id number] Kalyan Galvan Personal Advocate & 08/08/19 Liaison (PAL) Lashae Trevino Pharmacist Pharmacist 10/14/19 12/01/[facility] 14[address] [facility] [place] [id number] Eduardo Sharma MD Assigned Sleep Provider 04/02/20 05/07/21 [address] [facility] [address] [place], [place] [address] Rios Monteiro MD Assigned Musculoskeletal 04/02/20 08/24/20 [id number] [employer] Loyalty Provider [address] [place], [place] [address] Marcelo Artis Assigned Musculoskeletal 08/25/20 08/20/21 MIKAYLA Nuno Provider [address] [place], [place] [address] Rodrigo Man Assigned Surgical 08/25/2011/27 MIKAYLA Lacy Provider [address] [facility] [address] [place] [id number] documented as of this encounter
--- OUTSIDE RECORDS SUMMARY | 2022-02-06 10:13 | XMS_ITS | Encounter Summary ---
:1965 Author Organization [place] Address [address] [place] [address] Care Team Providers Name Role Phone Noreen Hills APRN, CNP Unavailable [phone] Noreen Hills APRN, CNP Primary Care Provider [phone] Reason for Visit Reason Comments Medication Refill Encounter Details Date Type Department Care Team Description 05/26/[address] [facility] Aleyda Guerrero MD Medication Refill [place] 3305 [facility] 3305 [facility] [place] [address] [address] [place] [address] [phone] Social History Tobacco Use Types Packs/Day Years [...] Hills APRN CNP - 05/27/2019 11:08 AM MIXING PICKER TENDER See refill request from 05/22 NG PICKER TENDER Telephone Encounter - Flakita Gaines RN - 05/27/2019 10:57 AM CST Routing refill request to provider for review/approval because: Drug not on the [facility] refill protocol Flakita Gaines RN NG PICKER TENDER documented in this encounter Plan of Treatment Not on filedocumented as of this encounter Visit Diagnoses Diagnosis Chronic seasonal allergic rhinitis documented in this encounter Additional Health Concerns Assessment Noted Time PHQ-9 Depression Total Score: 10 01/02/2019 10:18 AM C DT documented as of this encounter Care Teams Tv News Director Relationship Specialty Start Date End Date Noreen Hills APRN STORE LOSS PREVENTION MANAGER PCP - General Nurse Practitioner 01/09/19 12/12/[address] [place] [address] [place] [address] Noreen Hills APRN STORE LOSS PREVENTION MANAGER Assigned PCP 06/16/[address] [place] [address] [place] [address] documented as of this encounter
--- OUTSIDE RECORDS SUMMARY | 2022-02-06 10:13 | XMS_ITS | Encounter Summary ---
:1965 Author Organization [place] Address [address] [place] [address] Care Team Providers Name Role Phone Noreen Hills APRN GLASS CUT OFF SUPERVISOR Unavailable [phone] Noreen Hills APRN GLASS CUT OFF SUPERVISOR Primary Care Provider [phone] Kalyan Galvan Unavailable Unavailable Lashae Trevino [facility] Unavailable [phone] Reason for Referral Consultation (Routine) - Closed Specialty Diagnoses / Procedures Referred By Contact Refer red To Contact Diagnoses Chronic insomnia Eduardo Sharma MD [address] [address] Referral ID Status Reason Start Date Expiration Date Visits Requ ested Visits Authorized [id number] Closed 10/31/2019 10/30/2020 1 1 Reason for Visit Consultation (Routine) - Closed Specialty Diagnoses / Procedures Referred By Contact Refer red To Contact Diagnoses Snoring Noreen Hills [facility] CLOUD OPERATIONS ENGINEER GLASS CUT OFF SUPERVISOR Critical access hospital[address] [place] [address] [place] [address] Referral ID Status Reason Start Date Expiration Date Visits Requ ested Visits Authorized [id number] Closed 08/08/2019 08/07/2020 1 1 Encounter Details Date Type Department Care Team Description 10/31/2019 Virtual Visit [facility] Noreen Hills Aleyda johnsonemily, CLOUD OPERATIONS ENGINEER GLASS CUT OFF SUPERVISOR [address] [place] [address] Snoring (Primary Dx); Sleep Centers Eduardo Goldman MD [address] [facility] [address] [place] [id number] Chronic insomnia; [address] MYLES (obst ructive sleep apnea); [facility] fatigue [address] [place] [address] Social [...] How often do you attend spiritism or jewish Patient refused 08/08/2019 services? Do [...] They lamps are sold at [employer] such as [employer] or [employer]. A prescription can be written to get insurance coverage in some cases. They are also sold on [employer]. Using the light and melatonin should help [...] it is recommended that you consult an editor continuity and script before using a light box. If you have a condition that makes your eyes very sensitive to light, macular degeneration, a family history of such problems, or diabetic changes to your eyes, consult an editor continuity and script before using a light box. If you [...] at 10:00 AM. 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 fluticasone (FLONASE) 50 MCG/ACT nasal spray [place] 1-2 sprays into both nostrils daily 16 [...] Address next visit ??? Family history of GA (myocardial infarction) 04/13/2008 Priority: Medium At early age, father GA at age 40 Past Medical/Surgical History: Past [...] a week Gets together: Patient refused Attends jewish service: Patient refused Active member of club or organization: No Attends meetings of clubs or organizations: Patient refused Relationship status: ??? Intimate partner violence Fear of current or ex partner: Not on file Emotionally abused: Not on file Physically abused: Not on file Forced sexual activity: Not on file Other Topics Concern ??? Parent/sibling w/ CABG, GA or angioplasty before 65F 55M? No Social History Narrative ??? Not on file Family History: Family History Problem Relation Age of Onset ??? Cardiovascular Mother GA age 72 ??? Diabetes Mother Type II ??? Hypertension Mother ??? Lipids Mother ??? Arthritis Mother OA ??? Kidney Disease Mother 70 ??? Cardiovascular Father GA early 40s, subsequent bipass ??? Hypertension Father [...] Priority Associated Diagnoses Order S [facility] SLEEP PSYCHOLOGY REFERRAL Referral Routine Chronic insomni [...] Depression Total Score: 9 08/09/2019 7:03 AM TOP LIFT COMPRESSER documented as of this encounter Care Teams Portable Track Crew Chief Relationship Specialty Start Date End Date Noreen Hills PCP - General Nurse Practitioner 01/09/19 12/12/21 SEAN Haley GLASS CUT OFF SUPERVISOR [address] [facility] [place] [address] Noreen Hills Assigned PCP 06/16/18 SEAN Haley GLASS CUT OFF SUPERVISOR [address] [facility] [place] [address] Kalyan Galvan Personal Advocate & 08/08/19 Liaison (PAL) Lashae Trevino Pharmacist Pharmacist 10/14/19 12/01/20 Kiran, [facility] [address] [place], [place] [id number] documented as of this encounter
--- OUTSIDE RECORDS SUMMARY | 2022-02-06 10:13 | XMS_ITS | Encounter Summary ---
:1965 Author Organization [place] Address [address] [place] [address] Care Team Providers Name Role Phone Noreen Hills APRN EVICTION SPECIALIST Unavailable [phone] Noreen Hills APRN EVICTION SPECIALIST Primary Care Provider [phone] Kalyan Galvan Unavailable Unavailable Lashae Trevino [facility] Unavailable [phone] Encounter Details Date Type Department Care [...] How often do you attend lutheran or church Patient refused 08/08/2019 services? Do [...] Depression Total Score: 9 08/09/2019 7:03 AM HEALTH INSURANCE AGENT documented as of this encounter Care Teams Replacer Relationship Specialty Start Date End Date Noreen Hills PCP - General Nurse Practitioner 01/09/19 12/12/21 SEAN Haley EVICTION SPECIALIST [address] [facility] [address] [place], [place] [address] Noreen Hills PCP 06/16/18 SEAN Haley EVICTION SPECIALIST [address] [place] [address] Kalyan Galvan Personal Advocate & 08/08/19 Liaison (PAL) Lashae Trevino Pharmacist Pharmacist 10/14/19 12/01/20 [facility] [address] [facility] [address] [place], [place] [address] documented as of this encounter
--- OUTSIDE RECORDS SUMMARY | 2022-02-06 10:13 | XMS_ITS | Encounter Summary ---
:1965 Author Organization [place] Address [address] [place] [address] Care Team Providers Name Role Phone Noreen Hills APRN CHICKEN FANCIER Unavailable [phone] Noreen Hills APRN CHICKEN FANCIER Primary Care Provider [phone] Kalyan Galvan Unavailable Unavailable Lashae Trevino [facility] Unavailable [phone] Encounter Details Date Type Department Care [...] Total Score: 9 08/09/2019 7:03 AM LEAD PRESS OPERATOR documented as of this encounter Care Teams Bookbinding Machine Operator Relationship Specialty Start Date End Date Noreen Hills PCP - General Nurse Practitioner 01/09/19 12/12/21 SEAN Haley CHICKEN FANCIER [address] [facility] [address] [place], [place] [address] Noreen Hills PCP 06/16/18 SEAN Haley CHICKEN FANCIER [address] [facility] [place] [address] Kalyan Galvan Personal Advocate & 08/08/19 Liaison (PAL) Lashae Trevino Pharmacist Pharmacist 10/14/19 12/01/[facility] [address] [facility] [address] [place], [place] [address] documented as of this encounter
--- OUTSIDE RECORDS SUMMARY | 2022-02-06 10:13 | XMS_ITS | Encounter Summary ---
:1965 Author Organization [place] Address [address] [place] [address] Care Team Providers Name Role Phone Noreen Hills APRN MATERIAL MAN Unavailable [phone] Noreen Hills APRN, CNP Primary Care Provider [phone] Kalyan Galvan Unavailable Unavailable Encounter Details Date [...] How often do you attend spiritism or mormon Patient refused 08/08/2019 services? Do [...] Depression Total Score: 9 08/09/2019 7:03 AM CERTIFIED TOWER CLIMBER documented as of this encounter Care Teams Monorail Car Operator Relationship Specialty Start Date End Date Noreen Hills PCP - General Nurse Practitioner 01/09/19 12/12/21 SEAN Haley MATERIAL MAN [address] [facility] [place] [address] Noreen Hills Assigned PCP 06/16/18 SEAN Haley MATERIAL MAN [address] [facility] [place] [address] Kalyan Galvan Personal Advocate & 08/08/19 Liaison (PAL) documented as of this encounter
--- OUTSIDE RECORDS SUMMARY | 2022-02-06 10:13 | XMS_ITS | Encounter Summary ---
:1965 Author Organization [place] Address [address] [place] [address] Care Team Providers Name Role Phone Noreen Hills APRN ORACLE APPLICATION ARCHITECT Unavailable [phone] Noreen Hills APRN ORACLE APPLICATION ARCHITECT Primary Care Provider [phone] Kalyan Galvan Unavailable Unavailable Lashae Trevino [facility] Unavailable [phone] Reason for Visit Diagnostic Imaging MRI (Routine) - Closed Specialty Diagnoses / Procedures Referred By Contact Refer red To Contact Radiology. Diagnoses Pain of left lower leg Rodrigo Man Mri Procedures MR Lumbar Spine w/o Contrast MR Lumbar Spine w/o & w Contrast MIKAYLA Lacy [address] [facility] [place] [address] [place] [address] Referral ID Status Reason Start Date Expiration Date Visits Requ ested Visits Authorized [id number] Closed 10/07/2019 10/06/2020 1 1 Encounter Details Date Type Department Care Team Description 10/21/2019 Hospital Encounter [facility] Alejo Donovan, Pain of left lower [facility] Rodrigo [place] leg [address] [place] [address] [address] [place] [address] [place] [address] Social History Tobacco Use Types Packs/Day Years [...] How often do you attend sabianism or yazidi Patient refused 08/08/2019 services? Do [...] goal < 7% (H) fluticasone (FLONASE) 50 [place] 1-2 sprays 16 g 11 08/08 MCG/ACT [...] Depression Total Score: 9 08/09/2019 7:03 AM INDUSTRIAL ECOLOGY TECHNICIAN documented as of this encounter Care Teams Senior International Tax Manager Relationship Specialty Start Date End Date Noreen Hills PCP - General Nurse Practitioner 01/09/19 12/12/21 SEAN Haley ORACLE APPLICATION ARCHITECT [address] [facility] [place] [phone] Noreen Hills Assigned PCP 06/16/18 SEAN Haley ORACLE APPLICATION ARCHITECT [address] [facility] [place] [phone] Kalyan Galvan Personal Advocate & 08/08/19 Liaison (PAL) Lashae Trevino Pharmacist Pharmacist 10/14/19 12/01/20 Kiran [facility] 14[address] [facility] [place] [id number] documented as of this encounter
--- OUTSIDE RECORDS SUMMARY | 2022-02-06 10:13 | XMS_ITS | Encounter Summary ---
:1965 Author Organization [place] Address [address] [place] [address] Care Team Providers Name Role Phone Noreen Hills APRN, CNP Unavailable [phone] Noreen Hills APRN, CNP Primary Care Provider [phone] Reason for Visit Reason Comments Medication Refill duplicate, see other enc - C [facility] ALLERGY RELIEF-D 10-240 MG 24 hr tablet Encounter Details Date Type Department Care Team Description 05/21/2019 Refill [facility] Vanda Guerrero M edication Refill Clinic Pino SALDANA (duplicate, see other [address] [facility] enc - [facility] RELIEF-D 10-240 MG 24 [address] [place] [address] hr tablet) [place] [address] [phone] Social History Tobacco Use Types Packs/Day Years [...] How often do you attend orthodox or taoism Patient refused 08/08/2019 services? Do [...] is a duplicate request. See 05/18/19 encounter. PER DIEM documented in this encounter Plan of Treatment Not on filedocumented as of this encounter Visit Diagnoses Diagnosis Chronic seasonal allergic rhinitis documented in this encounter Additional Health Concerns Assessment Noted Time PHQ-9 Depression Total Score: 10 01/02/2019 10:18 AM C DT documented as of this encounter Care Teams Jerker Relationship Specialty Start Date End Date Noreen Hills APRN MID LEVEL BUSINESS ANALYST PCP - General Nurse Practitioner 01/09/19 12/12/[address] [place] [address] [place] [address] Noreen Hills APRN MID LEVEL BUSINESS ANALYST Assigned PCP 06/16/[address] [place] [address] [place] [address] documented as of this encounter
--- OUTSIDE RECORDS SUMMARY | 2022-02-06 10:13 | XMS_ITS | Encounter Summary ---
:1965 Author Organization [place] Address [address] [place] [address] Care Team Providers Name Role Phone Noreen Hills APRN LAY OUT DRAFTER Unavailable [phone] Noreen Hills APRN LAY OUT DRAFTER Primary Care Provider [phone] Kalyan Galvan Unavailable Unavailable Lashae Trevino [facility] Unavailable [phone] Reason for Visit Reason Onset Date Comments Chest Pain 11/06/2019 Encounter Details Date Type Department Care Team Description 11/06/2019 Telephone [facility] Noreen Hills istine, Chest Pain Pino ESTRADA LAY OUT DRAFTER 3307 [facility] [address] [place] [address] [address] [place] [address] [place] [address] [phone] Social History Tobacco Use Types Packs/Day Years [...] How often do you attend methodist or druze Patient refused 08/08/2019 services? Do [...] remedies tried: took IBP AM Requested Pharmacy: [facility] [address] [place] [address] Okay to leave a detailed message? Yes at Cell number on file: Telephone Information: documented in this encounter Plan of Treatment Not on filedocumented as of this encounter Visit Diagnoses Not on filedocumented in this encounter Additional Health Concerns Assessment Noted Time PHQ-9 Depression Total Score: 9 08/09/2019 7:03 AM ALLERGIST/IMMUNOLOGIST PHYSICIAN documented as of this encounter Care Teams Planning Associate Relationship Specialty Start Date End Date Noreen Hills PCP - General Nurse Practitioner 01/09/19 12/12/21 SEAN Haley LAY OUT DRAFTER [address] [facility] [place] [phone] Noreen Hills PCP 06/16/18 SEAN Haley LAY OUT DRAFTER 3305 [facility] [place] [address] Kalyan Galvan Personal Advocate & 08/08/19 Liaison (PAL) Lashae Trevino Pharmacist Pharmacist 10/14/19 [facility]/01/[facility] [address] [facility] [place] [address] documented as of this encounter
--- OUTSIDE RECORDS SUMMARY | 2022-02-06 10:13 | XMS_ITS | Encounter Summary ---
:1965 Author Organization [place] Address [address] [place] [address] Care Team Providers Name Role Phone Noreen Hills APRN, CNP Unavailable [phone] Noreen Hills APRN, CNP Primary Care Provider [phone] Reason for Visit Reason Comments Medication Refill resend - [facility] RELIEF- D 10-240 MG 24 hr tablet Encounter Details Date Type Department Care Team Description 05/18/2019 Refill [facility] Vanda Guerrero M edication Refill Clinic Pino SALDANA (resend - [facility] [address] [facility] RELIE F-D 10-240 MG [address] [facility] [address] hr tablet) [address] [place] [address] [place] [address] [phone] Social History Tobacco Use Types Packs/Day Years [...] How often do you attend samaritan or hoahaoism Patient refused 08/08/2019 services? Do [...] resend. 05/09/19 rx failed to e-scribe Pharmacy. [place] OFFICE MANAGER Telephone Encounter - Wilda Patterson - 05/18/2019 2:52 PM CST [facility] RELIEF-D 10-240 MG 24 hr tablet Last Written Prescription Date: 04/29/19 Last Fill Quantity: 90 # refills: 1 Last office visit: 01/02/2019 with prescribing provider: Future Office Visit: [place] OFFICE MANAGER documented in this encounter Plan of Treatment Not on filedocumented as of this encounter Visit Diagnoses Diagnosis Chronic seasonal allergic rhinitis documented in this encounter Additional Health Concerns Assessment Noted Time PHQ-9 Depression Total Score: 10 01/02/2019 10:18 AM C DT documented as of this encounter Care Teams Wrapper Hand Relationship Specialty Start Date End Date Noreen Hills APRN ELECTRON GUN INSPECTOR PCP - General Nurse Practitioner 01/09/19 12/12/[address] [place] [address] [place] [address] Noreen Hills APRN ELECTRON GUN INSPECTOR Assigned PCP 06/16/[address] [place] [address] [place] [address] documented as of this encounter
--- OUTSIDE RECORDS SUMMARY | 2022-02-06 10:13 | XMS_ITS | Encounter Summary ---
:1965 Author Organization [place] Address [address] [place] [address] Care Team Providers Name Role Phone Noreen Hills APRN, CNP Unavailable [phone] Noreen Hills APRN, CNP Primary Care Provider [phone] Reason for Visit Reason Comments Medication Refill Encounter Details Date Type Department Care Team Description 05/06/2019 Refill [facility] Aleyda Guerrero MD Medication Refill [facility] 3305 [facility] 3305 [facility] [place] [address] [address] [place] [address] [phone] Social History Tobacco Use Types Packs/Day Years [...] How often do you attend christianity or christian Patient refused 08/08/2019 services? Do [...] or Health refill protocol or controlled substance MATIC MOUNTER documented in this encounter Plan of Treatment Not on filedocumented as of this encounter Visit Diagnoses Diagnosis Chronic seasonal allergic rhinitis documented in this encounter Additional Health Concerns Assessment Noted Time PHQ-9 Depression Total Score: 10 01/02/2019 10:18 AM C DT documented as of this encounter Care Teams Traffic Administrator Relationship Specialty Start Date End Date Noreen Hills APRN ELIGIBILITY COUNSELOR PCP - General Nurse Practitioner 01/09/19 12/12/[address] [place] [address] [place] [address] Noreen Hills APRN ELIGIBILITY COUNSELOR Assigned PCP 06/16/[address] [place] [address] [place] [address] documented as of this encounter
--- OUTSIDE RECORDS SUMMARY | 2022-02-06 10:13 | XMS_ITS | Encounter Summary ---
:1965 Author Organization [place] Address [address] [place] [address] Care Team Providers Name Role Phone Pankaj Hills APRN SCIENCE LIAISON Unavailable [phone] Pankaj Hills APRN SCIENCE LIAISON Primary Care Provider [phone] Kalyan Galvan Unavailable Unavailable Lashae Trevino [facility] Unavailable [phone] Reason for Visit Reason Comments Chest Pain Encounter Details Date Type Department Care Team Description 11/06/2019 Emergency [facility] Kera Bernard MD Chest pain, unspecified type; [facility] Emergency Dep t EMERGENCY PHYSICIANS Family history of ME (myocar dial infarction) [address] [place], [place] [address] [facility] [address] [place], [place] [id number] (Wo rk) Social History Tobacco Use Types [...] often do you attend jehovah's witness or yarsanism Patient refused 08/08/2019 services? Do [...] through Care Everywhere. Chest Pain, Uncertain Cause (Palauan)documented in this encounter Medications at Time of [...] goal < 7% (H) fluticasone (FLONASE) 50 Prosper 1-2 sprays 16 g 11 08/08 MCG/ACT [...] T&A Left peritoneal tendon repair Family History: ME age 71, type 2 DM, HTN, lipids, osteoarthritis, kidney disease: mother ME s/p CABG, HTN, diabetes, lipids: father Lipids, [...] Chest pain Time: 18:19:30 Rate 70 bpm. [place] interval 174. QRS duration 96. QT/QTc 394/425. [...] GERD (gastroesophageal reflux disease); Family history of ME (myocardial infarction); Persistent insomnia; Type 2 diabetes [...] Echo Stress Echocardiogram 2. Family history of ME (myocardial infarction) Z82.49 Echo Stress Echocardiogram Disposition: Discharged home Kallie Garcia 11/06/2019 [facility] EMERGENCY DEPARTMENT Scribe Disclosure: I, Kallie [...] AM CDT Narrative 12/16/2019 12:34 PM CDT [id number]^QASIM^KERA^S [facility] Echocardiography Laboratory [address] [place] [address] Name: MEGAN WONG : 1965 Study Date: 12/16/2019 09:06 AM Age: 54 yrs Gender: Female Patient Location: [facility] Reason For Study: Chest pain, unspecifie d type, Family history of ME (myocardial i History: Diabetes, Family Hx, Hyperlipid [...] note might be different from the original. [id number] [facility] [id number]^QASIM^KERA^Tobi [facility] Echocardiography Laboratory [address] [place] [address] Name: MEGAN WONG : 1965 Study Date: 12/16/2019 09:06 AM Age: 54 yrs Gender: Female Patient Location: [facility] Reason For Study: Chest pain, unspecifie d type, Family history of ME (myocardial i History: Diabetes, Family Hx, Hyperlipid [...] CDT EXAM: XR CHEST 2 VW LOCATION: [facility] DATE/TIME: 11/06/2019 7:58 PM INDICATION: Chest pain COMPARISON: None. Procedure Note Zachary Pardo MD - 11/06/2019Formatt ing of this note might be different from the original. EXAM: XR CHEST 2 VW LOCATION: [facility] DATE/TIME: 11/06/2019 7:58 PM INDICATION: Chest pain COMPARISON: None. IMPRESSION: Negative chest. Postsurgical change in the lower cervical spine. Kera Bernard MD IMG DIAGNOSTIC IMAGING ORDER ILDEFONSO (ABNORMAL) Lipase (11/06/2019 6:28 PM CDT) athologist Signature Lipase 66 (L) 73 - 393 11/06/[address] [facility] U/L 7:36 PM CDT HOSPITAL Specimen Anatomical Collection Method Collection Time Receive d Time (Source) Location / / Volume Laterality 11/06/2019 6:28 PM 0 6:35 CDT PM CDT Kera Bernard MD LAB - BLOOD ORDERABLES Performing Organization Address [facility] Phon e [place] [phone] [place] [phone] D dimer quantitative (11/06/2019 6:28 PM CDT) athologist Signature D Dimer 0.5 0.0 - 0.50 11/06/2019 [facility] ug/ml FEU 7:40 PM CDT HOSPITAL Comment: [...] BLOOD ORDERABLES Performing Organization Address [facility] Phon e Number [facility] [address] [place] [address] [facility] [address] [place], [place] [address] [facility] [phone] (ABNORMAL) Hepatic panel (11/06/2019 6:28 PM CDT) Analysis Performed At Patho logist Time Signature Bilirubin Direct <0.1 0.0 - 0.2 11/06/2019 [place] mg/dL 7:45 PM T [facility] Bilirubin Total 0.3 0.2 - 1.3 11/06/2019 [place] mg/dL 7:45 PM T [facility] Albumin 3.7 3.4 - 5.0 11/06/2019 [place] g/dL 7:45 PM [facility] Protein Total 7.8 6.8 - 8.8 11/06/2019 [place] g/dL 7:45 PM [facility] Alkaline 157 (H) 40 - 150 11/06/2019 [place] Phosphatase U/L 7:45 PM [facility] ALT 36 0 - 50 U/L 11/06/2019 [place] 7:45 PM [facility] AST 21 0 - 45 U/L 11/06/2019 [place] 7:45 PM [facility] Specimen Anatomical Collection Method Collection Time Receive d Time (Source) Location / / Volume Laterality 11/06/2019 6:28 PM 0 6:35 CDT PM CDT Kera Bernard MD LAB - BLOOD ORDERABLES Performing Organization Address City/State/ZIP Code Phon e Number M [facility] [address] [place] [address] [phone] [facility] [address] [place] [address], U [phone] Troponin I (now) (11/06/2019 6:28 PM CDT) P athologist Signature Troponin I ES <0.015 0.000 - 11/06/2019 [place] 0.045 ug/L 7:00 PM T [facility] Comment: The 99th percentile for upper [...] Address City/State/ZIP Code Phon e Number M [place] [address] [address] [place], [place] [address] [facility] [address] [place], [place] [address] [phone] (ABNORMAL) Basic metabolic panel (BMP) (11/06/2019 6:28 PM CDT) athologist Signature Sodium 140 133 - 144 11/06/2019 [place] mmol/L 6:50 PM [facility] Potassium 3.5 3.4 - 5.3 11/06/2019 [place] mmol/L 6:50 PM [facility] Chloride 107 94 - 109 11/06/2019 [place] mmol/L 6:50 PM [facility] Carbon Dioxide 28 20 - 32 11/06/2019 [place] mmol/L 6:56 PM [facility] Anion Gap 5 3 - 14 11/06/2019 [place] mmol/L 6:56 PM [facility] Glucose 129 (H) 70 - 99 11/06/2019 [place] mg/dL 6:56 PM [facility] Urea Nitrogen 17 7 - 30 11/06/2019 [place] mg/dL 6:56 PM [facility] Creatinine 0.82 0.52 - 11/06/2019 [place] 1.04 mg/dL 6:56 PM [facility] GFR Estimate 80 >60 11/06/2019 [place] mL/min/{1. 6:56 PM [facility] 73_m2} HOSPITAL Comment: Non GFR Calc Starting 05/28/2018, serum creatinine ba sed estimated GFR (eGFR) will be calculated using the Chronic Kidney Dise ase Epidemiology Collaboration (CKD-EPI) equation. GFR Estimate If >90 >60 mL/min/{1.73_m2} 11/06/2019 6: 56 PM [facility] Comment: GFR Calc Starting 05/28/2018, serum creatinine ba sed estimated GFR (eGFR) will be calculated using the Chronic Kidney Dise ase Epidemiology Collaboration (CKD-EPI) equation. Calcium 9.1 8.5 - 10.1 mg/dL 11/06/2019 6:56 PM T [facility] Specimen Anatomical Collection Method Collection Time Receive d Time (Source) Location / / Volume Laterality Blood specimen 11/06/2019 6:28 PM 020 6:35 (specimen) CDT PM CDT Kera Bernard MD LAB - BLOOD ORDERABLES Performing Organization Address City/State/ZIP Code Phon e Number M [place] [address] [place] [address] [facility] [address] [place], [place] [address], [facility] [phone] [address], [facility] CBC + differential (11/06/2019 6:28 PM CDT) [facility] gist Method Time Signature WBC 7.2 4.0 - 11/06/2019 [facility] 11.0 6:41 PM [facility] 10e9/L [facility] RBC Count 4.83 3.8 - 5.2 11/06/2019 [facility] 10e12/L 6:41 PM [facility] Hemoglobin 14.8 11.7 - 11/06/2019 [facility] 15.7 g/dL 6:41 PM [facility] Hematocrit 45.7 35.0 - 11/06/2019 [facility] 47.0 % 6:41 PM [facility] MCV 95 78 - 100 11/06/2019 [facility] fl 6:41 PM [facility] MCH 30.6 26.5 - 11/06/2019 [facility] 33.0 pg 6:41 PM [facility] MCHC 32.4 31.5 - 11/06/2019 [facility] 36.5 g/dL 6:41 PM [facility] RDW 12.6 10.0 - 11/06/2019 [facility] 15.0 % 6:41 PM [facility] Platelet Count 259 150 - 450 11/06/2019 [facility] 10e9/L 6:41 PM [facility] Diff Method Automated 11/06/2019 [facility] Method 6:41 PM [facility] % Neutrophils 42.4 % 11/06/2019 [facility] 6:41 PM [facility] % Lymphocytes 45.5 % 11/06/2019 [facility] 6:41 PM [facility] % Monocytes 9.2 % 11/06/2019 [facility] 6:41 PM [facility] % Eosinophils 1.7 % 11/06/2019 [facility] 6:41 PM [facility] % Basophils 1.1 % 11/06/2019 [facility] 6:41 PM [facility] % Immature 0.1 % 11/06/2019 [facility] Granulocytes 6:41 PM [facility] Nucleated RBCs 0 0 /100 11/06/2019 [facility] 6:41 PM [facility] Absolute 3.0 1.6 - 8.3 11/06/2019 [facility] Neutrophil 10e9/L 6:41 PM [facility] Absolute 3.3 0.8 - 5.3 11/06/2019 [facility] Lymphocytes 10e9/L 6:41 PM [facility] Absolute 0.7 0.0 - 1.3 11/06/2019 [facility] Monocytes 10e9/L 6:41 PM [facility] Absolute 0.1 0.0 - 0.7 11/06/2019 [facility] Eosinophils 10e9/L 6:41 PM [facility] Absolute 0.1 0.0 - 0.2 11/06/2019 [facility] Basophils 10e9/L 6:41 PM [facility] Abs Immature 0.0 0 - 0.4 11/06/2019 [facility] Granulocytes 10e9/L 6:41 PM [facility] Absolute 0.0 11/06/2019 [facility] Nucleated RBC 6:41 PM [facility] Specimen Anatomical Collection Method Collection Time Receive d Time (Source) Location / / Volume Laterality Blood specimen 11/06/2019 6:28 PM 020 6:35 (specimen) CDT CDT Kera Bernard MD LAB - BLOOD ORDERABLES Performing Organization Address City/State/ZIP Code Phon e Number M [facility] [address] [place], [place] [address] [facility] [address] [place], [place] [address] [facility] [phone] EKG 12 lead (11/06/2019 6:19 PM CDT) [facility] gist Method Time Signature Interpretation ECG [...] Chest pain, unspecified type Family history of ME (myocardial infarct ion) Family history of ischemic heart disease Chest pain, unspecified type Family history of ME (myocardial infarct ion) Family history of ischemic [...] Chica Alejandro, RERE) 30 mL, Oral, ONCE, [facility] 11/06/19 at 1916, For 1 dose documented in this encounter Additional Health Concerns Assessment Noted Time PHQ-9 Depression Total Score: 9 08/09/2019 7:03 AM MANAGER TRANSPORT documented as of this encounter Care Teams Director Of Instrumental Music Relationship Specialty Start Date End Date Pankaj Hills PCP - General Nurse Practitioner 01/09/19 12/12/21 SEAN Haley SCIENCE LIAISON [address] [facility] [place] [address] Pankaj Hills Assigned PCP 06/16/18 SEAN Haley SCIENCE LIAISON [address] [facility] [place] [address] Kalyan Galvan Personal Advocate & 08/08/19 Liaison (PAL) Lashae Trevino Pharmacist Pharmacist 10/14/19 12/01/20 Krian [facility] [address] [facility] [place] [address] documented as of this encounter
--- OUTSIDE RECORDS SUMMARY | 2022-02-06 10:13 | XMS_ITS | Encounter Summary ---
:1965 Author Organization [place] Address [address] [place] [address] Care Team Providers Name Role Phone Noreen Hills APRN MASSAGE OPERATOR Unavailable [phone] Noreen Hills APRN MASSAGE OPERATOR Primary Care Provider [phone] Reason for Visit Reason Onset Date Comments Refill Request 05/22/2019 Encounter Details Date Type Department Care Team Description 05/22/2019 MyC Refill [facility] Noreen Hills Ref ill Request Pino Haley APRN MASSAGE OPERATOR [address] [facility] [address] [place] [address] [address] [place] [address] [place] [id number] [phone] Social History Tobacco Use Types Packs/Day Years [...] Shefali Root MA - 06/02/2019 9:03 AM TEACHERS' AIDE Patient has appointment on 08/08/2019 Shefali Root MA HERS' AIDE Telephone Encounter - Christi Panda MA - 05/30/2019 9:09 AM CST My Chart message sent to schedule. Christi Panda CMA HERS' AIDE Telephone Encounter - Lainey Wells - 05/23/2019 12:22 PM CST 1st attempt l/m. Lainey Wells on 05/23/2019 at 12:22 PM HERS' AIDE Telephone Encounter - Noreen Hills APRN CNP - 05/23/2019 11:28 AM TEACHERS' AIDE I will fill Ambien. I prefer her not being on Sudafed. Can worsen anxiety and blood pressure\ Would she be willing to switch to regular loratadine? Due for physical in Jul. Please assist with scheduling. HERS' AIDE Telephone Encounter - Liya Gonzalez RN - 05/23/2019 9:16 AM CST Loratadine prescription failed transmission Ambien has 2 weeks left on script Thea OzunaFREIGHT RECEIVER [facility] [phone] HERS' AIDE documented in this encounter Plan of Treatment Not on filedocumented as of this encounter Visit Diagnoses Diagnosis Persistent insomnia Persistent disorder of initiating or martínez ntaining sleep Chronic seasonal allergic rhinitis documented in this encounter Additional Health Concerns Assessment Noted Time PHQ-9 Depression Total Score: 10 01/02/2019 10:18 AM C DT documented as of this encounter Care Teams Internet Project Manager Relationship Specialty Start Date End Date Noreen Hills APRN CNP PCP - General Nurse Practitioner 01/09/19 12/12/[address] [place] [address] [place] [address] Noreen Hills APRN CNP Assigned PCP 06/16/[address] [place] [address] [place] [address] documented as of this encounter
--- OUTSIDE RECORDS SUMMARY | 2022-02-06 10:13 | XMS_ITS | Encounter Summary ---
:1965 Author Organization [place] Address [address] [place] [address] Care Team Providers Name Role Phone Noreen Hills APRN VISCERA WASHER Unavailable [phone] Noreen Hills APRN, CNP Primary Care Provider [phone] Kalyan Galvan Unavailable Unavailable Reason for Visit Reason Onset Date Comments Referral 10/02/2019 MTM Encounter Details Date Type Department Care Team Description 10/02/2019 Telephone [facility] Noreen Hills, Referral (MTM) Pino ESTRADA VISCERA WASHER [address] [facility] [address] [facility] [address] [place] [address] [place] [address] [phone] Social History Tobacco Use Types Packs/Day Years [...] How often do you attend sabianist or bahai Patient refused 08/08/2019 services? Do [...] 10/02/2019 1:46 PM CDT MTM referral from: [facility] visit (referral by provider) MTM referral outreach attempt #2 on October 02, 2019 at 1:47 PM Outcome: Patient not reachable after several attempts, will route to [facility] Pharmacist/Provider as an FYI. Thank you for the referral. See LISSA Pickens Vigoureux Printer documented in this encounter Plan of Treatment Not on filedocumented as of this encounter Visit Diagnoses Not on filedocumented in this encounter Additional Health Concerns Assessment Noted Time PHQ-9 Depression Total Score: 9 08/09/2019 7:03 AM DIETITIAN HELPER documented as of this encounter Care Teams Recreation Therapy Director Relationship Specialty Start Date End Date Noreen Hills PCP - General Nurse Practitioner 01/09/19 12/12/21 SEAN Haley VISCERA WASHER [address] [facility] [place] [address] Noreen Hills Assigned PCP 06/16/18 SEAN Haley VISCERA WASHER [address] [facility] [place] [address] Kalyan Galvan Personal Advocate & 08/08/19 Liaison (PAL) documented as of this encounter
--- OUTSIDE RECORDS SUMMARY | 2022-02-06 10:13 | XMS_ITS | Encounter Summary ---
:1965 Author Organization [place] Address [address] [place] [address] Care Team Providers Name Role Phone Noreen Hills APRN, CNP Unavailable [phone] Noreen Hills APRN, CNP Primary Care Provider [phone] Reason for Visit Reason Comments Medication Refill topiramide Encounter Details Date Type Department Care Team Description 08/04/2019 Refill [facility] Noreen Hills Medication Refill Clinic Pino Haley APRN CNP (topiramide) [address] [place] [address] [facility] [address] [place] [address] [place] [phone] [phone] Social History Tobacco Use Types Packs/Day Years [...] often do you attend roman catholic or zoroastrian Patient refused 08/08/2019 services? Do [...] in past 26 months Janice Jaeger RN HER REPAIRER Telephone Encounter - Dania Chappell - 08/04/2019 [...] 90 days) Aug 08, 2019 9:15 AM LEATHER REPAIRER (Arrive by 8:50 AM) Adult Preventative Visit with Noreen Hills APRN [facility] [address] [place] [address] [address] [facility] [address] HER REPAIRER documented in this encounter Plan of Treatment Not on filedocumented as of this encounter Visit Diagnoses Diagnosis Migraine without status migrainosus, not intractable, unspecified migraine type Morbid obesity (H) Morbid obesity documented in this encounter Additional Health Concerns Assessment Noted Time PHQ-9 Depression Total Score: 10 01/02/2019 10:18 AM C DT documented as of this encounter Care Teams Drafting Supervisor Relationship Specialty Start Date End Date Noreen Hills APRN HYDROCHLORIC ACID OPERATOR PCP - General Nurse Practitioner 01/09/19 12/12/[address] [place] [address] [place] [address] Noreen Hills APRN HYDROCHLORIC ACID OPERATOR Assigned PCP 06/16/[address] [place] [address] [place] [address] documented as of this encounter
--- OUTSIDE RECORDS SUMMARY | 2022-02-06 10:13 | XMS_ITS | Encounter Summary ---
:1965 Author Organization [place] Address [address] [place] [address] Care Team Providers Name Role Phone Noreen Hills APRN, CNP Unavailable [phone] Noreen Hills APRN, CNP Primary Care Provider [phone] Kalyan Galvan Unavailable Unavailable Reason for Visit Reason Onset Date Comments Pain 10/07/2019 left leg pain Consultation (Routine) - Closed Specialty Diagnoses / Procedures Referred By Contact Refer red To Contact Orthopedics and Sports Diagnoses Pain of left lower leg Noreen Hills [facility] SEAN Haley CNP [facility] [address] [place] [address]?? [facility] [address] [place] [address] [address] [place] [address] Phone: Fax: Referral ID Status Reason Start Date Expiration Date Visits Requ ested Visits Authorized [id number] Closed 09/30/2019 09/29/2020 1 1 Encounter Details Date Type Department Care Team Description 10/07/2019 Virtual Visit [facility] Noreen Hills APRN SENIOR LICENSING MANAGER [address] [place] [address] [address] [place] [id number] Pain of left lower [facility] Rodrigo Man PA-C [address] [id number] leg Clinic [address] [address] Social History Tobacco Use Types [...] How often do you attend caodaism or zoroastrian Patient refused 08/08/2019 services? Do [...] ??? fluticasone (FLONASE) 50 MCG/ACT nasal spray, [place] 1-2 sprays into both nostrils daily, Disp: [...] Depression Total Score: 9 08/09/2019 7:03 AM CHARGING OPERATOR documented as of this encounter Care Teams Watch Guard Gate Relationship Specialty Start Date End Date Noreen Hills PCP - General Nurse Practitioner 01/09/19 12/12/21 SEAN Haley SENIOR LICENSING MANAGER [address] [facility] [place] [address] Noreen Hills Assigned PCP 06/16/18 SEAN Haley SENIOR LICENSING MANAGER [address] [facility] [place] [address] Kalyan Galvan Personal Advocate & 08/08/19 Liaison (PAL) documented as of this encounter
--- OUTSIDE RECORDS SUMMARY | 2022-02-06 10:13 | XMS_ITS | Encounter Summary ---
:1965 Author Organization [place] Address [address] [place] [address] Care Team Providers Name Role Phone Noreen Hills APRN TERMITE EXTERMINATOR Unavailable [phone] Noreen Hills APRN TERMITE EXTERMINATOR Primary Care Provider [phone] Reason for Visit Reason Comments Medication Refill Encounter Details Date Type Department Care Team Description 06/11/2019 Refill [facility] Noreen Hills, Medication Refill Pino ESTRADA TERMITE EXTERMINATOR [address] [place] [address] [place] [address] [phone] Social History Tobacco Use Types Packs/Day Years [...] How often do you attend confucianism or restorationist Patient refused 08/08/2019 services? Do [...] Ok x one refill has appointment pending Y PILOT Telephone Encounter - Rosalia Garcia MA - [...] 90 days) Aug 08, 2019 9:15 AM SPRAY PILOT (Arrive by 8:50 AM) Adult Preventative Visit with [facility]oreen Hills [facility] [address] [place] [address] [address] [place] [address] Y PILOT documented in this encounter Plan of [...] documented as of this encounter Care Teams Plasma Specialist Relationship Specialty Start Date End Date Noreen Hills APRN CNP PCP - General Nurse Practitioner 01/09/19 12/12/[address] [place] [address] [place] [address] Noreen Hills APRN CNP Assigned PCP 06/16/[address] [facility] [address] documented as of this encounter
--- OUTSIDE RECORDS SUMMARY | 2022-02-06 10:13 | XMS_ITS | Encounter Summary ---
:1965 Author Organization [place] Address [address] [place] [address] Care Team Providers Name Role Phone Noreen Hills APRN, CNP Unavailable [phone] Noreen Hills APRN, CNP Primary Care Provider Reason for Visit Reason Comments Medication Refill Encounter Details Date Type Department Care Team Description 05/13/2019 Refill [facility] Aleyda Guerrero MD Medication Refill [place] 3305 [facility] 3305 [facility] [place] [address] [address] [place] [address] [phone] Social History Tobacco Use Types Packs/Day Years [...] Keyona Cartagena RN - 05/13/2019 10:41 AM SUPERVISOR FISH HATCHERY Patient has refills remaining with requesting pharmacy. Keyona Palacios - Registered Nurse [facility] Acute and Diagnostic Services RVISOR FISH HATCHERY documented in this encounter Plan of Treatment Not on filedocumented as of this encounter Visit Diagnoses Diagnosis Chronic seasonal allergic rhinitis documented in this encounter Additional Health Concerns Assessment Noted Time PHQ-9 Depression Total Score: 10 01/02/2019 10:18 AM C DT documented as of this encounter Care Teams Knockout Machine Operator Relationship Specialty Start Date End Date Noreen Hills APRN HEALTH INFORMATION CLERK PCP - General Nurse Practitioner 01/09/19 12/12/21 [address] [facility] [place] [address] Noreen Hills APRN HEALTH INFORMATION CLERK Assigned PCP 06/16/18 [address] [facility] [place] [address] documented as of this encounter
--- OUTSIDE RECORDS SUMMARY | 2022-02-06 10:14 | XMS_ITS | Encounter Summary ---
:1965 Author Organization [facility] Address [address] [place] [address] Care Team Providers Name Role Phone Noreen Hills APRN, CNP Unavailable [phone] Noreen Hills APRN, CNP Primary Care Provider [phone] Encounter Details Date Type Department Care Team [...] How often do you attend adventism or orthodoxy Patient refused 08/08/2019 services? Do [...] documented as of this encounter Care Teams Spray Painter Helper Relationship Specialty Start Date End Date Noreen Hills APRN SEMICONDUCTOR DIES LOADER PCP - General Nurse Practitioner 01/09/19 12/12/[address] [place] [address] DAV[place] [address] Noreen Hills APRN SEMICONDUCTOR DIES LOADER Assigned PCP 06/16/[address] [place] [address] DAV[place] GR[place] [address] documented as of this encounter
--- OUTSIDE RECORDS SUMMARY | 2022-02-06 10:14 | XMS_ITS | Encounter Summary ---
:1965 Author Organization [facility] Address [address] [place] [address] Care Team Providers Name Role Phone Noreen Hills APRN, CNP Unavailable [phone] Noreen Hills APRN, CNP Primary Care Provider [phone] Encounter Details Date Type Department Care Team [...] How often do you attend anabaptist or synagogue Patient refused 08/08/2019 services? Do [...] as of this encounter Care Teams Pigment Furnace Tender Relationship Specialty Start Date End Date Noreen Hills APRN WASTE OIL PUMPER PCP - General Nurse Practitioner 01/09/19 12/12/[address] [place] [address] [place] [address] Noreen Hills APRN WASTE OIL PUMPER Assigned PCP 06/16/[address] [place] [address] DAV[place] GRESH[place] [address] documented as of this encounter
--- OUTSIDE RECORDS SUMMARY | 2022-02-06 10:14 | XMS_ITS | Encounter Summary ---
:1965 Author Organization [place] Address [address] [place] [address] Care Team Providers Name Role Phone Noreen Hills APRN, CNP Unavailable [phone] Noreen Hills APRN, CNP Primary Care Provider [phone] Reason for Referral (Routine) - Closed Specialty Diagnoses / Procedures Referred By Contact Refer red To Contact Diagnoses Left foot pain Right foot pain Moran's neuroma of both feet Pes cavus Peroneal tendinitis of both lower legs Agatha Nieves DPM, Procedures TRIAMCINOLONE ACET INJ NOS Podiatry/Foot and Ankle Surgery [address] [place] [address] Referral ID Status Reason Start Date Expiration Date Visits Requ ested Visits Authorized [id number] Closed 01/21/2019 01/21/2020 1 1 A Physical Therapy (Routine) - Closed Specialty Diagnoses / Procedures Referred By Contact Refer red To Contact Diagnoses Left foot pain Right foot pain Moran's neuroma of both feet Pes cavus Peroneal tendinitis of both lower legs Agatha Nieves DPM, Podiatry/Foot and Ankle Surgery [address] [facility] [address] [place] [address] Referral ID Status Reason Start Date Expiration Date Visits Requ ested Visits Authorized [id number] Closed 01/21/2019 06/10/2019 30 30 iagnostic Imaging XR (Routine) - Closed Specialty Diagnoses / Procedures Referred By Contact Refer red To Contact Diagnoses Left foot pain Agatha Nieves DPM, Procedures XR Foot Left G/E 3 Views Podiatry/Foot and Ankle Surgery [id number] [place] [address] [address] [place] [address] Referral ID Status Reason Start Date Expiration Date Visits Requ ested Visits Authorized [id number] Closed 01/21/2019 01/21/2020 1 1 Reason for Visit Reason Comments Pain Encounter Details Date Type Department Care Team Description 01/21/2019 Office Visit [facility] Agatha Nieves, Left fo ot pain (Primary Dx); [facility] [place] [facility], Podiatry/Foot Right foot pain; [address] [facility] Moran's neuroma of both feet; [place] [address] Seda hwang; [address] [address] Peroneal tendinitis of both lower legs; [phone] [place], [place] Type 2 diabet es mellitus without complication, without long-term current use of insulin (H) 40430 (Wo rk) Social History Tobacco Use Types [...] How often do you attend evangelical or protestant Patient refused 08/08/2019 services? Do you belong to any clubs or organizations such as No 08/08/2019 evangelical groups, SuperLikerss, [employer]Clean Power Finance or athletic groups, or school groups? How [...] 10:30 AM CDT Thank you for choosing [facility]! [facility] SCHEDULE SUNDAY AM - [place] SUNDAY - [place] [facility] [address] [place] [address] [place] [address] / FX [phone] / FX [phone] SUNDAY - [place] SUNDAY AM - [facility] [address] Stephanie Saldana [address] [place] [address] BozenaDAVID [address] / FX [phone] SUNDAY PM - [place] SCHEDULE SURGERY: [phone] [place] [address] BILLING QUESTIONS: [phone] CotatiDAVID [address] AFTER HOURS: [phone] / FX [phone] APPOINTMENTS: [phone] Consumer Casiano Line (CPL) [phone] PHYSICAL THERAPY REFERRAL [facility] ([facility]) [phone] [facility] Moran's neuroma is an enlargement [...] shoe and massaging your foot DIAGNOSIS: Your rx specialist will ask many questions about your signs [...] of you. Do 2 sets of 10. disease control inspector the same position as above. While keeping [...] and getting you back on your feet. [facility] has a Comprehensive Weight Management Program. This program includes counseling, education,non-surgical and surgical approaches to weight loss. If you are interested in learning more either talk to you primary care provider or call [phone]. documented in this encounter Progress Notes Agatha [...] 3 ??? fluticasone (FLONASE) 50 MCG/ACT spray, Lamar 1-2 sprays into both nostrils daily, Disp: [...] INCREASE, Disp: 180 capsule, Rfl: 0 ??? RetrieveTOUCH ULTRA test strip, USE TO TEST BLOOD [...] file Gets together: Not on file Attends protestant service: Not on file Active member of club or organization: Not on file Attends meetings of clubs or organizations: Not on file Relationship status: Not on file ??? Intimate partner violence: Fear of current or ex partner: Not on file Emotionally abused: Not on file Physically abused: Not on file Forced sexual activity: Not on file Other Topics Concern ??? Parent/sibling w/ CABG, MD or angioplasty before 65F 55M? No Social History Narrative ??? Not on file FAMILY HISTORY: Family History Problem Relation Age of Onset ??? Cardiovascular Mother MD age 72 ??? Diabetes Mother Type II ??? Hypertension Mother ??? Lipids Mother ??? Arthritis Mother OA ??? Kidney Disease Mother 70 ??? Cardiovascular Father MD early 40s, subsequent bipass ??? Hypertension Father [...] insulin (H) PLAN: [facility]. Reviewed and discussed causes of tendonitis. [...] HISTORY: ??Left foot pain. Procedure Note Thompson Baze MD - 01/21/2019Formatt ing of this note [...] documented as of this encounter Care Teams Skin Care Instructor Relationship Specialty Start Date End Date Noreen Hills APRN HOSE TURNER PCP - General Nurse Practitioner 01/09/19 12/12/[address] [place] [address] DAV[place] [address] Noreen Hills APRN HOSE TURNER Assigned PCP 06/16/18 [address] [facility] [place] [address] documented as of this encounter
--- OUTSIDE RECORDS SUMMARY | 2022-02-06 10:14 | XMS_ITS | Encounter Summary ---
:1965 Author Organization [facility] Address [address] [place] [address] Care Team Providers Name Role Phone Vanda Guerrero MD Primary Care Provider [phone] Noreen Hills APRN CUSTOMER DEVELOPMENT REPRESENTATIVE Unavailable [phone] Noreen Hills APRN CUSTOMER DEVELOPMENT REPRESENTATIVE Unavailable [phone] Encounter Details Date Type Department Care [...] Depression Total Score: 7 06/25/2018 9:49 AM CONTROL INTEGRATION ENGINEER documented as of this encounter Care Teams Associate Professor Of Counseling Relationship Specialty Start Date End Date Vanda Guerrero MD PCP - General Internal Medicine 04/08/15 01/08/[address] [place] [address] [place] [address] Noreen Hills APRN PCP - Assigned PCP 06/16/18 08/13/[address] [place] [address] Noreen Hills APRN Assigned PCP 06/16/[address] [place] [address] documented as of this encounter
--- OUTSIDE RECORDS SUMMARY | 2022-02-06 10:14 | XMS_ITS | Encounter Summary ---
:1965 Author Organization [facility] Address [address] [place] [address] Care Team Providers Name Role Phone Noreen Hills APRN, CNP Unavailable [phone] Noreen Hills APRN, CNP Primary Care Provider [phone] Reason for Visit [facility] Physical Therapy (Routine) - Closed Specialty Diagnoses / Procedures Referred By Contact Refer red To Contact Diagnoses Acute pain of right shoulder Noreen Hills APRN HISTOTECHNOLOGIST SUPERVISOR [address] [facility] DAV[place] GRESHAM [address] Referral ID Status Reason Start Date Expiration Date Visits Requ ested Visits Authorized [id number] Closed 01/02/2019 06/10/2019 30 30 Encounter Details Date Type Department Care Team Description 01/10/2019 Therapy Visit [facility] Marcelo Trejo Chro isaac right shoulder pain (Primary Dx); Rehabilitation Services PT Acute pain of right shoulder [place] [address] [facility] [address] [address] [address] [place] [address] (Work) [phone] Social History Tobacco Use Types Packs/Day Years [...] How often do you attend rastafari or lutheran Patient refused 08/08/2019 services? Do [...] Trejo PT - 01/10/2019 3:50 PM CDT [facility] Initial Evaluation Subjective: The history is provided by the patient and a caregiver. No roustabout crew leader was used. Megan Choi being seen for [...] Since onset symptoms are unchanged. 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 Restrictions include: Working in normal job without [...] Priority Date/Time Associated Diagnosis Comme [facility] Z THERAPEUTIC Routine 01/10/2019 4:26 PM [...] Start Date End Date Noreen Hills APRN HISTOTECHNOLOGIST SUPERVISOR PCP - General Nurse Practitioner 01/09/19 12/12/21 [address] [facility] DAIVD GRESHAM [id number] Noreen Hills APRN HISTOTECHNOLOGIST SUPERVISOR Assigned PCP 06/16/18 [address] [facility] [place] [address] documented as of this encounter
--- OUTSIDE RECORDS SUMMARY | 2022-02-06 10:14 | XMS_ITS | Encounter Summary ---
:1965 Author Organization [facility] Address [address] [place] [address] Care Team Providers Name Role Phone Vanda Guerrero MD Primary Care Provider [phone] Noreen Hills APRN DERRICK BUILDER Unavailable [phone] Reason for Visit Reason Comments Medication Refill omeprazole (PRILOSEC) 20 MG CR capsule Encounter Details Date Type Department Care Team Description 11/09/2018 Refill [facility] Vanda Guerrero M edication Refill Clinic [place] SALDANA (omeprazole (PRILOSEC) [address] [facility] 20 MG CR capsule) [facility] [address] [place] [address] [place] [address] [phone] Social History Tobacco Use Types Packs/Day Years [...] How often do you attend presybeterian or scientology Patient refused 08/08/2019 services? Do [...] 11/11/2018 2:05 PM CDT Prescription approved per [facility] Refill Protocol. Shala Blackmon [...] Depression Total Score: 7 06/25/2018 9:49 AM SUPERVISOR BOTTLE HOUSE CLEANERS documented as of this encounter Care Teams Teacher Adult Education Relationship Specialty Start Date End Date Vanda Guerrero MD PCP - General Internal Medicine 04/08/15 01/08/[address] [place] [address] [place] [address] Noreen Hills APRN DERRICK BUILDER Assigned PCP 06/16/18 [address] [facility] [place] GR[place] [address] documented as of this encounter
--- OUTSIDE RECORDS SUMMARY | 2022-02-06 10:14 | XMS_ITS | Encounter Summary ---
:1965 Author Organization [facility] [place] Address [address] [place] [address] Care Team Providers Name Role Phone Noreen Hills APRN, CNP Unavailable [phone] Noreen Hills APRN, CNP Primary Care Provider [phone] Reason for Visit [facility] Physical Therapy (Routine) - Closed Specialty Diagnoses / Procedures Referred By Contact Refer red To Contact Diagnoses Left foot pain Right foot pain Coello's neuroma of both feet Pes cavus Peroneal tendinitis of both lower legs Agatha Null, DPM, Podiatry/Foot and Ankle Surgery [address] [place] [address] Referral ID Status Reason Start Date Expiration Date Visits Requ ested Visits Authorized [id number] Closed 01/21/2019 06/10/2019 30 30 Encounter Details Date Type Department Care Team Description 02/04/2019 Therapy Visit [facility] Marcelo Trejo, Left foot pain; Rehabilitation Services PT Right foot pain; [place] [address] Peroneal tendinitis of both lower legs; [address] [place], [place] Chronic ri ght shoulder pain [facility] [address] [address] [address] [place] [address] (Work) [phone] Social History Tobacco Use Types Packs/Day Years [...] How often do you attend jewish or mosque Patient refused 08/08/2019 services? Do [...] documented as of this encounter Care Teams Wild Life Photographer Relationship Specialty Start Date End Date Noreen Hills APRN INTERLOCKING TOWER OPERATOR PCP - General Nurse Practitioner 01/09/19 12/12/[address] [place] [address] [place] [address] Noreen Hills APRN INTERLOCKING TOWER OPERATOR Assigned PCP 06/16/[address] [place] [address] [place] GR[place] [address] documented as of this encounter
--- OUTSIDE RECORDS SUMMARY | 2022-02-06 10:14 | XMS_ITS | Encounter Summary ---
:1965 Author Organization [facility] Address [address] [place] [address] Care Team Providers Name Role Phone Vanda Guerrero MD Primary Care Provider [phone] Noreen Hills RODEO CLOWN RULING MACHINE SET UP OPERATOR Unavailable [phone] Reason for Visit Diagnostic Imaging Mammo - Closed Specialty Diagnoses / Procedures Referred By Contact Refer red To Contact Diagnoses Health care maintenance Noreen Hills, Procedures *MA Screening Digital Bilateral RODEO CLOWN RULING MACHINE SET UP OPERATOR [address] [facility] [place] [address] Referral ID Status Reason Start Date Expiration Date Visits Requ ested Visits Authorized [id number] Closed 07/25/2018 07/25/2019 1 1 Encounter Details Date Type Department Care Team Description 09/03/2018 Ancillary Procedure M [facility] care [facility] [place] maintenance [address] [facility] [address] [place] [phone] Social History Tobacco Use Types Packs/Day Years [...] Scattered fibroglandular densities. CLINICAL INFORMATION: Breast screening. ??[facility] care maintenance, 09/30/15, 04/16/15, 05/27/13 FINDINGS: Negative. Stable exam. Screeni ng exam in one year recommended. Procedure Note Stanislav Desir MD - 09/03/2018Formatt ing of this note might be different from the original. SCREENING MAMMOGRAM, BILATERAL, DIGITAL w/CAD, 09/03/2018 10:29 AM BREAST DENSITY: Scattered fibroglandular densities. CLINICAL INFORMATION: Breast screening. [facility], 09/30/15, 04/16/15, 05/27/13 FINDINGS: Negative. Stable exam. Screeni ng exam in one year recommended. IMPRESSION: BI-RADS CATEGORY: 1 - Negati ve. RECOMMENDED FOLLOW-UP: Annual Mammograph y. STANISLAV DESIR MD Noreen Hills APRN RULING MACHINE SET UP OPERATOR IMG MAMMOGRAPHY ORDERAB LES documented in this encounter Visit Diagnoses Diagnosis Health care maintenance Unspecified general medical examination documented in this encounter Additional Health Concerns Assessment Noted Time PHQ-9 Depression Total Score: 7 06/25/2018 9:49 AM EVENT MANAGER documented as of this encounter Care Teams Metal Lather Relationship Specialty Start Date End Date Vanda Guerrero MD PCP - General Internal Medicine 04/08/15 01/08/[address] [place] [address] [place] [address] Noreen Hills APRN CNP Assigned PCP 06/16/[address] [place] [address] [place] GR[place] [address] documented as of this encounter
--- OUTSIDE RECORDS SUMMARY | 2022-02-06 10:14 | XMS_ITS | Encounter Summary ---
:1965 Author Organization [facility] Address [address] [place] [address] Care Team Providers Name Role Phone Noreen Hills APRN, CNP Unavailable [phone] Noreen Hills APRN, CNP Primary Care Provider [phone] Kalyan Galvan Unavailable Unavailable Lashae Trevino [facility] Unavailable [phone] Eduardo Sharma MD Unavailable Rios Monteiro MD Unavailable Marcelo Artis PA-C Unavailable [phone] Rodrigo Man PA-C Unavailable Reason for Visit Reason Onset Date Comments Medication Refill 04/25/2019 metFORMIN (GLUCOPHAG E) 500 MG tablet Encounter Details Date Type Department Care Team Description 04/25/2019 Refill [facility] Noreen Hills Medication Refill Clinic [place] Haley APRN CNP (metFORMIN (GLUCOPHAGE) [address] [facility] 500 M G tablet) [facility] [address] [place] [address] [place] [address] [phone] Social History Tobacco Use Types Packs/Day Years [...] How often do you attend mosque or anglican Patient refused 08/08/2019 services? Do [...] not current: LDL, creatinine Due for appointment MANAGER Telephone Encounter - Lara Villalba - 04/25/2019 [...] & Orders section of the refill encounter. MANAGER documented in this encounter Plan of [...] documented as of this encounter Care Teams Pork Cutlet Maker Relationship Specialty Start Date End Date Noreen Hills PCP - General Nurse Practitioner 01/09/19 12/12/21 SEAN Haley MOULDER OPERATOR [address] [facility] [place] [address] Noreen Hills Assigned PCP 06/16/18 SEAN Haley MOULDER OPERATOR 3[address] [facility] [place] [address] Kalyan Galvan Personal Advocate & 08/08/19 Liaison (PAL) Lashae Trevino Pharmacist Pharmacist 10/14/19 12/01/20 [facility] [address] [facility] [place] [address] Eduardo Sharma MD Assigned Sleep Provider 04/02/20 05/07/21 [address] [place] [id number] Rios Monteiro MD Assigned Musculoskeletal 04/02/20 08/24/20 [address] [facility] Provider [address] [place] [id number] Marcelo Artis Assigned Musculoskeletal 08/25/20 08/20/21 MIKAYLA Nuno Provider [address] [facility] [address] [place] [address] Rodrigo Man Assigned Surgical 08/25/2011/27 MIKAYLA Lacy Provider [address] [facility] [address] [place], [place] [address] documented as of this encounter
--- OUTSIDE RECORDS SUMMARY | 2022-02-06 10:14 | XMS_ITS | Encounter Summary ---
:1965 Author Organization [facility] Address [address] [place] [address] Care Team Providers Name Role Phone Noreen Hills APRN, CNP Unavailable [phone] Noreen Hills APRN, CNP Primary Care Provider [phone] Encounter Details Date Type Department Care Team [...] How often do you attend adventism or christianity Patient refused 08/08/2019 services? Do [...] as of this encounter Care Teams Software Development Advisor Relationship Specialty Start Date End Date Noreen Hills APRN CAMPAIGN COORDINATOR PCP - General Nurse Practitioner 01/09/19 12/12/[address] [place] [address] [place] [address] Noreen Hills APRN CAMPAIGN COORDINATOR Assigned PCP 06/16/[address] [place] [address] [place] [address] documented as of this encounter
--- OUTSIDE RECORDS SUMMARY | 2022-02-06 10:14 | XMS_ITS | Encounter Summary ---
:1965 Author Organization [facility] Address [address] [place] [address] Care Team Providers Name Role Phone Noreen Hlils APRN, CNP Unavailable [phone] Noreen Hills APRN, CNP Primary Care Provider [phone] Reason for Visit [facility] Physical Therapy (Routine) - Closed Specialty Diagnoses / Procedures Referred By Contact Refer red To Contact Diagnoses Left foot pain Right foot pain Coello's neuroma of both feet Pes cavus Peroneal tendinitis of both lower legs Agatha Null, DPM, Podiatry/Foot and Ankle Surgery [address] [place] [address] Referral ID Status Reason Start Date Expiration Date Visits Requ ested Visits Authorized [id number] Closed 01/21/2019 06/10/2019 30 30 Encounter Details Date Type Department Care Team Description 02/25/2019 [facility] [place] [place], Left fo ot pain; Rehabilitation Services PT Right foot pain; [place] [address] Peroneal tendinitis of both lower legs; [address] Chronic right shoulder pain [place], [place] [address] [address] [place] [address] [phone] Social History Tobacco Use Types Packs/Day Years [...] How often do you attend muslim or adventist Patient refused 08/08/2019 services? Do [...] and time spent performing 1:1 timed codes. ICULUM DEVELOPMENT SPECIALIST documented in this encounter Plan of Treatment Not on filedocumented as of this encounter Procedures Procedure Name Priority Date/Time Associated Diagnosis Comme nts [facility] NEUROMUSCULAR Routine 02/25/2019 10:49 AM Left foot pain RE-EDUCATION CDT Right foot pain Peroneal tendinitis of both lower le gs Chronic right shoulder pain [facility] THERAPEUTIC EXERCISES Routine 02/25/2019 10:49 AM [...] documented as of this encounter Care Teams Windows Server Engineer Relationship Specialty Start Date End Date Noreen Hills APRN FIRER GLOST KILN PCP - General Nurse Practitioner 01/09/19 12/12/[address] [place] [address] [place] [address] Noreen Hills APRN FIRER GLOST KILN Assigned PCP 06/16/18 3[address] [facility] [place] [address] documented as of this encounter
--- OUTSIDE RECORDS SUMMARY | 2022-02-06 10:14 | XMS_ITS | Encounter Summary ---
:1965 Author Organization [place] Address [address] [place] [address] Care Team Providers Name Role Phone Vanda Guerrero MD Primary Care Provider [phone] Noreen Hills APRN FUNERAL PRE ARRANGEMENT COUNSELOR Unavailable [phone] Noreen Hills APRN FUNERAL PRE ARRANGEMENT COUNSELOR Unavailable [phone] Encounter Details Date Type Department Care [...] How often do you attend confucianism or baptist Patient refused 08/08/2019 services? Do [...] Depression Total Score: 7 06/25/2018 9:49 AM ORGAN TEACHER documented as of this encounter Care Teams Associate Software Development Engineer Relationship Specialty Start Date End Date Vanda Guerrero MD PCP - General Internal Medicine 04/08/15 01/08/[address] [place] [address] [place] [address] Noreen Hills APRN PCP - Assigned PCP 06/16/18 08/13/[address] [place] [address] Noreen Hills APRN Assigned PCP 06/16/[address] [place] [address] documented as of this encounter
--- OUTSIDE RECORDS SUMMARY | 2022-02-06 10:14 | XMS_ITS | Encounter Summary ---
:1965 Author Organization [place] Address [address] [place] [address] Care Team Providers Name Role Phone Vanda Guerrero MD Primary Care Provider [phone] Noreen Hills APRN OCEANOGRAPHER GEOLOGICAL Unavailable [phone] Reason for Visit Reason Onset Date Comments Refill Request 10/20/2018 loratadine-pseudoePH EDrine ([facility] ALLERGY RELIEF-D) 10- 240 MG per 24 hr tablet Encounter Details Date Type Department Care Team Description 10/20/2018 Refill [facility] Vanda Guerrero R efill Request Clinic Pino SALDANA (loratadine-pseudoePHED [address] [place] [address] [facility] rine ([facility] RELIEF-D) 10-240 MG per [address] [place] [address] 24 hr tablet) [place] [address] [phone] Social History Tobacco Use Types Packs/Day Years [...] How often do you attend spiritism or orthodox Patient refused 08/08/2019 services? Do [...] She would like it faxed to the [facility] in [employer] in [place]. Faxing now. Emily Horn CMA on 10/01/2018 at 9:32 AM Telephone Encounter - Vanda Guerrero MD - 10/22/2018 12:52 PM CDT Script printed, signed, and in station out basket or on MA/SUPERVISOR DRAPERY HANGING/RN desk Vanda Guerrero MD Internal Medicine - Pediatrics Telephone Encounter - Kimberlyn Martinez RN - 10/21/2018 5:50 PM CDT Claritin D Routing refill request to provider for review/approval because: Drug not on the [facility] refill protocol Kimberlyn Martinez RN, BSN Telephone [...] Depression Total Score: 7 06/25/2018 9:49 AM TELEPHONIC NURSE documented as of this encounter Care Teams Vp Scientific Relationship Specialty Start Date End Date Vanda Guerrero MD PCP - General Internal Medicine 04/08/15 01/08/[address] [facility] [place] [address] Noreen Hills, SEAN OCEANOGRAPHER GEOLOGICAL Assigned PCP 06/16/[address] [place], [place] [address] documented as of this encounter
--- OUTSIDE RECORDS SUMMARY | 2022-02-06 10:14 | XMS_ITS | Encounter Summary ---
:1965 Author Organization [place] Address [address] [place] [address] Care Team Providers Name Role Phone Vanda Guerrero MD Primary Care Provider [phone] Noreen Hills APRN YOGHURT MAKER Unavailable [phone] Encounter Details Date Type Department Care Team [...] How often do you attend congregation or adventism Patient refused 08/08/2019 services? Do [...] Depression Total Score: 7 06/25/2018 9:49 AM WIPING CLOTH CUTTER documented as of this encounter Care Teams Logistics Supervisor Relationship Specialty Start Date End Date Vanda Guerrero MD PCP - General Internal Medicine 04/08/15 01/08/[address] [place] [address] [place] [address] Noreen Hills APRN YOGHURT MAKER Assigned PCP 06/16/18 [address] [facility] [place] [address] documented as of this encounter
--- OUTSIDE RECORDS SUMMARY | 2022-02-06 10:14 | XMS_ITS | Encounter Summary ---
:1965 Author Organization [place] Address [address] [place] [address] Care Team Providers Name Role Phone Vanda Guerrero MD Primary Care Provider [phone] Vanda Guerrero MD Unavailable Reason for Visit Reason Comments Medication Refill metFORMIN (GLUCOPHAGE) 500 M G tablet Encounter Details Date Type Department Care Team Description 05/23/2018 Refill [facility] Vanda Guerrero M edication Refill Clinic Pino SALDANA (metFORMIN (GLUCOPHAGE) [address] [place] 3305 [facility] 500 M G tablet) [facility] [address] [place] [address] [place] [address] [phone] Social History Tobacco Use Types Packs/Day Years [...] How often do you attend orthodoxy or methodist Patient refused 08/08/2019 services? Do [...] - Lori Weber - 06/03/2018 8:18 AM CITY MANAGER Type of outreach: Phone, spoke to patient. [...] PLANNING Q5 YRS 2018 Lori Weber MA MANAGER Telephone Encounter - Adali Pierson - 05/27/2018 2:45 PM CST LVM for patient to callback. Thanks Chema Allan Team Coodinator MANAGER Telephone Encounter - Gayathri Mcallister RN - 05/27/2018 11:47 AM CITY MANAGER TC-please call patient to schedule: Return in about 1 week (around 04/16/2018) for Establish care/DM with Florentino, then to lab, please ask if she wants flu. Prescription approved per [facility] Refill Protocol. Gayathri Mcallister RN Message handled by Nurse Triage. MANAGER Telephone Encounter - Marisa Matthew - 05/23/2018 [...] documented as of this encounter Care Teams Square Cutter Relationship Specialty Start Date End Date Vanda Guerrero MD PCP - General Internal Medicine 04/08/15 01/08/19 [address] [facility] [place] [address] Vanda Guerrero MD PCP - Assigned PCP 07/24/16 06/15/18 [address] [facility] [place] [address] documented as of this encounter
--- OUTSIDE RECORDS SUMMARY | 2022-02-06 10:14 | XMS_ITS | Encounter Summary ---
:1965 Author Organization [place] Address [address] [place] [address] Care Team Providers Name Role Phone Noreen Hills APRN EDITOR PRODUCER Unavailable [phone] Noreen Hills APRN EDITOR PRODUCER Primary Care Provider [phone] Reason for Visit Reason Onset Date Comments Refill Request 03/05/2019 omeprazole (PRILOSEC ) [address] capsule Encounter Details Date Type Department Care Team Description 03/05/2019 [facility] Vanda Guerrero R efill Request Clinic Pino SALDANA (omeprazole (PRILOSEC) [address] [place] [address] [facility] [address] capsule) [facility] [address] [place] [address] [place] [phone] Social History Tobacco Use Types Packs/Day Years [...] How often do you attend mosque or sikh Patient refused 08/08/2019 services? Do [...] documented as of this encounter Care Teams Bath Mix Operator Relationship Specialty Start Date End Date Noreen Hills APRN EDITOR PRODUCER PCP - General Nurse Practitioner 01/09/19 12/12/[address] [place] [address] [place] [address] Noreen Hills APRN EDITOR PRODUCER Assigned PCP 06/16/[address] [place] [address] [place] [address] documented as of this encounter
--- OUTSIDE RECORDS SUMMARY | 2022-02-06 10:14 | XMS_ITS | Encounter Summary ---
:1965 Author Organization [place] Address [address] [place] [address] Care Team Providers Name Role Phone Vanda Guerrero MD Primary Care Provider [phone] Noreen Hills APRN PEDIATRIC REGISTERED NURSE Unavailable [phone] Reason for Visit Reason Comments Headache Encounter Details Date Type Department Care Team Description 08/29/2018 - Emergency [facility] [place], [place] Migrai ne without aura 08/30/2018 [facility] Emergency MD [place] and with status Dept [facility]ERG[facility]YS[facility] migrainosus, not [address] [place], [place] [address] [facility] [place] [place] [address] [place], [place] [id number] [phone] (Wo rk) Social History Tobacco Use Types [...] How often do you attend faith or bahai Patient refused 08/08/2019 services? Do [...] capsule 8 capsule 0 017 01/02/2019 D3) 57311 UNITS (50,000 Units) by capsuleIndications: mouth once a week Vitamin D deficiency DULoxetine (CYMBALTA) 30 TAKE 1 CAPSULE (30 180 capsule 3 01/02/2019 MG EC capsuleIndications: MG) BY MOUTH 2 Fibromyalgia TIMES DAILY fluticasone (FLONASE) 50 [place] 1-2 sprays 3 Bottle 3 06/1208/07/2019 MCG/ACT [...] or confusion and I doubt stroke or REFINERY OPERATOR [employer]ANT tumor. I do not feel that advanced [...] observations and the provider's statements to me. [facility] [place] Storey MD 09/01/18 0114 [...] 10 mg (COMPLETED) 0027 (Given - Provider: Macrelina Henry RN) 10 mg, Intravenous, ONCE, Administer [...] mg (COMPLETED) 002 (Given - Provider: Marcelina Herny RN) 10 mg, Intravenous, Administer over 2 Mi nutes, ONCE, Sun08/30/18 at 0008, For 1 dose, Avoid use if patient has full bowel obstruction or perforation. Irritant. For ordered IV doses 1-10 mg, give IV Push undiluted over 2 minutes. Continuous Medication Order 08/28/2018 08/29/2018 08/30/2018 sodium chloride 0.9% infusion 2357 ([facility] eled Entry - Provider: Orders [...] Depression Total Score: 7 06/25/2018 9:49 AM JUICE PACKAGING MACHINES SETTER documented as of this encounter Care Teams Ingredient Mixer Relationship Specialty Start Date End Date Vanda Guerrero MD PCP - General Internal Medicine 04/08/15 01/08/19 [address] [facility] [place] [address] Noreen Hills APRN PEDIATRIC REGISTERED NURSE Assigned PCP 06/16/18 [address] [facility] [place] [address] documented as of this encounter
--- OUTSIDE RECORDS SUMMARY | 2022-02-06 10:14 | XMS_ITS | Encounter Summary ---
:1965 Author Organization [place] Address [address] [place] [address] Care Team Providers Name Role Phone Vanda Guerrero MD Primary Care Provider [phone] Vanda Guerrero MD Unavailable Reason for Visit Reason Comments Medication Refill methocarbamol (ROBAXIN) 500 MG tablet Encounter Details Date Type Department Care Team Description 05/28/2018 Refill [facility] Vanda Guerrero M edication Refill Clinic Pino SALDANA (methocarbamol [address] [place] 3305 [facility] ([facility]ESS[facility]) 500 MG [facility] DR tablet) [address] [place] [address] [place] [address] [phone] Social History Tobacco Use Types Packs/Day Years [...] How often do you attend samaritan or baptism Patient refused 08/08/2019 services? Do [...] documented as of this encounter Care Teams Services Account Manager Relationship Specialty Start Date End Date Vanda Guerrero MD PCP - General Internal Medicine 04/08/15 01/08/19 [address] [facility] [place] [address] Vanda Guerrero MD PCP - Assigned PCP 07/24/16 06/15/18 [address] [facility] [place] [address] documented as of this encounter
--- OUTSIDE RECORDS SUMMARY | 2022-02-06 10:14 | XMS_ITS | Encounter Summary ---
:1965 Author Organization [place] Address [address] [place] [address] Care Team Providers Name Role Phone Vanda Guerrero MD Primary Care Provider [phone] Vanda Guerrero MD Unavailable Encounter Details [...] How often do you attend rastafari or episcopal Patient refused 08/08/2019 services? Do [...] documented as of this encounter Care Teams Security Software Engineer Relationship Specialty Start Date End Date Vanda Guerrero MD PCP - General Internal Medicine 04/08/15 01/08/[address] [place] [address] [place] [address] Vanda Guerrero MD PCP - Assigned PCP 07/24/16 06/15/[address] [place] [address] [place] [address] documented as of this encounter
--- OUTSIDE RECORDS SUMMARY | 2022-02-06 10:14 | XMS_ITS | Encounter Summary ---
:1965 Author Organization [place] Address [address] [place] [address] Care Team Providers Name Role Phone Vanda Guerrero MD Primary Care Provider [phone] Noreen Hills APRN WIRE HARNESS ASSEMBLER Unavailable [phone] Noreen Hills APRN WIRE HARNESS ASSEMBLER Unavailable [phone] Reason for Referral Diagnostic Imaging Mammo - Closed Specialty Diagnoses / Procedures Referred By Contact Refer red To Contact Diagnoses Health care maintenance Noreen Hills, Procedures *MA Screening Digital Bilateral [place] [address] [facility] [place] [address] Referral ID Status Reason Start Date Expiration Date Visits Requ ested Visits Authorized [id number] Closed 07/25/2018 07/25/2019 1 1 OTIC TECHNICIAN Reason for Visit Reason Comments Physical Encounter Details Date Type Department Care Team Description 07/25/2018 Office Visit [facility] Noreen Hills car e maintenance (Primary Dx); Clinic [place] Haley APRN Vitamin D deficiency; [address] [facility] Fibromyalgia; [address] [facility] Migraine without status migr ainosus, not intractable, unspecified migraine type; [address] [facility] Moderate episode of recurrent major depr essive disorder (H) [place] [address] [place] [id number] Social History Tobacco Use Types Packs/Day Years [...] How often do you attend cheondoism or islam Patient refused 08/08/2019 services? Do [...] Comments Blood Pressure 116/64 07/25/2018 4:30 PM ORTHOTIC TECHNICIAN Pulse 79 07/25/2018 4:30 PM ORTHOTIC TECHNICIAN Temperature 36.4 ??C (97.5 ??F) 07/25/2018 4:30 PM ORTHOTIC TECHNICIAN Respiratory Rate - - Oxygen Saturation 99% 07/25/2018 4:30 PM ORTHOTIC TECHNICIAN Inhaled Oxygen Concentration - - Weight 82.1 kg (181 lb) 07/25/2018 4:30 PM ORTHOTIC TECHNICIAN Height 157.5 cm (5' 2) 07/25/2018 4:30 PM ORTHOTIC TECHNICIAN Body Mass Index 33.11 07/25/2018 4:30 PM ORTHOTIC TECHNICIAN documented in this encounter Patient Instructions Patient InstructionsChristi Panda MA - 07/25/2018 4:20 PM CST Headaches: -Google rebound headaches -Consider magnesium OXALATE 500mg per day to reduce headaches -Consider B2 400mg -Aromatherapy -Guided relaxation -Stay on topiramate for now -Headache journal Fibro: Rheum nurse consultants Yoga Warm water pool-[facility] warm water pool Stop muscle relaxant [...] eye doctor every 1 to 2 years. OTIC TECHNICIAN documented in this encounter Progress Notes Noreen [...] NEG Negative Negative Test canceled - Lab mental health orderly error(A) HPV 18 DNA NEG Negative Negative Test canceled - Lab mental health orderly error(A) OTHER HR HPV NEG Negative Negative Test canceled - Lab mental health orderly error(A) Reviewed and updated as needed this [...] better nutrition discussed. She is motivated. Recommended Anton Y warm water pool therapy -Start talk [...] Lung CA Screening Noreen Hills APRN CNP [facility] OTIC TECHNICIAN documented in this encounter Plan of Treatment Not on filedocumented as of this encounter Results Fecal colorectal cancer screen (FIT) (01/12/2020 8:00 AM CDT) Analysis Performed At Patho logist Time Signature Occult Blood Negative NEG^Negati 01/18/2020 [facility] FIT ve 4:19 PM CDT [facility] Specimen Anatomical Collection Method Collection Time Receive d Time (Source) Location / / Volume Laterality Stool specimen 01/12/2020 8:00 AM 020 1:16 (specimen) CDT PM CDT Noreen Hills APRN, CNP LAB - STOOLS ORDERABLES Performing Organization Address City/State/ZIP Code Phon e Number [facility] [address] [place], [place] [id number] [place] [address] *MA Screening Digital Bilateral (09/03/2018 10:13 AM [...] Scattered fibroglandular densities. CLINICAL INFORMATION: Breast screening. ??[facility] care maintenance, 09/30/15, 04/16/15, 05/27/13 FINDINGS: Negative. Stable exam. Screeni ng exam in one year recommended. Procedure Note Stanislav Desir MD - 09/03/2018Formatt ing of this note might be different from the original. SCREENING MAMMOGRAM, BILATERAL, DIGITAL w/CAD, 09/03/2018 10:29 AM BREAST DENSITY: Scattered fibroglandular densities. CLINICAL INFORMATION: Breast screening. [facility], 09/30/15, 04/16/15, 05/27/13 FINDINGS: Negative. Stable exam. Screeni ng exam in one year recommended. IMPRESSION: BI-RADS CATEGORY: 1 - Negati ve. RECOMMENDED FOLLOW-UP: Annual Mammograph y. STANISLAV DESIR MD Noreen Hills APRN [facility] MAMMOGRAPHY ORDERAB LES documented in this encounter [...] Depression Total Score: 7 06/25/2018 9:49 AM ORTHOTIC TECHNICIAN documented as of this encounter Care Teams Metal Burnisher Relationship Specialty Start Date End Date Vanda Guerrero MD PCP - General Internal Medicine 04/08/15 01/08/[address] [place] [address] [place] [address] Noreen Hills APRN PCP - Assigned PCP 06/16/18 08/13/[address] [place] [address] Noreen Hills APRN Assigned PCP 06/16/[address] [place] [address] documented as of this encounter
--- OUTSIDE RECORDS SUMMARY | 2022-02-06 10:14 | XMS_ITS | Encounter Summary ---
:1965 Author Organization [place] Address [address] [place] [address] Care Team Providers Name Role Phone Vanda Guerrero MD Primary Care Provider [phone] Noreen Hills APRN EXHIBIT CLEANER Unavailable [phone] Reason for Referral [facility] Physical Therapy (Routine) - Closed Specialty Diagnoses / Procedures Referred By Contact Refer red To Contact Diagnoses Acute pain of right shoulder Noreen Hills APRN CNP [address] [facility] [place] [address] Referral ID Status Reason Start Date Expiration Date Visits Requ ested Visits Authorized [id number] Closed 01/02/2019 06/10/2019 30 30 onsultation (Routine) - Closed Specialty Diagnoses / Procedures Referred By Contact Refer red To Contact Podiatry Diagnoses Left foot pain Noreen Hills M [facility] FITTER UP EXHIBIT CLEANER [place] [address] [place] [address] [place] [phone] Fax: Referral ID Status Reason Start Date Expiration Date Visits Requ ested Visits Authorized [id number] Closed 01/02/2019 01/02/2020 1 1 ision Services (Routine) - Closed Specialty Diagnoses / Procedures Referred By Contact Refer red To Contact Diagnoses Type 2 diabetes mellitus with complication, without long-term current use of insulin (H) Noreen Hills M [facility] FITTER UPAngella ROSA JACLYN [address] [place] [address] DR Nevaeh Bass [place] [address] [address] [place] [address] Phone: Fax: Referral ID Status Reason Start Date Expiration Date Visits Requ ested Visits Authorized [id number] Closed 01/02/2019 01/02/2020 1 1 Reason for Visit Reason Comments Shoulder Pain Encounter Details Date Type Department Care Team Description 01/02/2019 Office Visit [facility] Noreen Hills APRN CNP [address] [place] [address] [place] [address] Fibromyalgia (Primary Dx); Clinic [place] 3a, Remberto Rn Pal Acute pain of right shoulder; [address] [place] [address] Left foot pain; [facility] Kali Type 2 diabetes mellitus wit [...] How often do you attend hoahaoism or gnosticism Patient refused 08/08/2019 services? Do [...] and Fibromayalgia) Lashawn Esquivel & Staci Arambula [phone] Have hubby call [facility] and ask about warm pool therapy or [...] warm water pool therapy at the in [place] (M25.511) Acute pain of right shoulder Comment: As above. DDX includes muscular weakness vs bursitis. No evidence of more serious pathology, but will refer to ortho if no improvement in 6 weeks. Plan: [facility] PT, HAND, AND CHIROPRACTIC REFERRAL (M79.672) Left [...] Time Signature Occult Blood Negative NEG^Negati 02/01/2019 [facility] FIT ve 10:58 AM CDT [facility] Specimen Anatomical Collection Method Collection Time Receive d Time (Source) Location / / Volume Laterality Stool specimen 01/25/2019 7:35 AM 019 (specimen) CDT 10:01 AM CDT N[place]en [place] APRN EXHIBIT CLEANER LAB - STOOLS ORDERABLES Performing Organization Address City/State/ZIP Code Phon e Number [facility] [address] [place], [place] [id number] [place] [address] (ABNORMAL) Hemoglobin A1c (01/02/2019 9:56 AM CDT) [...] Phon e Number [facility] JACLYN [address] [facility] [place] [address] [phone] documented in this encounter Visit Diagnoses Diagnosis [...] as of this encounter Care Teams Wood Heel Finisher Relationship Specialty Start Date End Date Vanda Guerrero MD PCP - General Internal Medicine 04/08/15 01/08/[address] [place] [address] [place] [address] Noreen Hills APRN CNP Assigned PCP 06/16/[address] [place] [address] [place] [address] documented as of this encounter
--- OUTSIDE RECORDS SUMMARY | 2022-02-06 10:14 | XMS_ITS | Encounter Summary ---
:1965 Author Organization [place] Address [address] [place] [address] Care Team Providers Name Role Phone [place] APRN, CNP Unavailable [phone] N[place]en Hills APRN, CNP Primary Care Provider [phone] Reason for Visit [facility] (Routine) - Closed Specialty Diagnoses / Procedures Referred By Contact Refer red To Contact Diagnoses Left foot pain Right foot pain Coello's neuroma of both feet Pes cavus Peroneal tendinitis of both lower legs Agatha Null, DPM, Podiatry/Foot and Ankle Surgery [address] [place] [address] Referral ID Status Reason Start Date Expiration Date Visits Requ ested Visits Authorized [id number] Closed 01/21/2019 06/10/2019 30 30 Encounter Details Date Type Department Care Team Description 02/11/2019 Therapy Visit [facility] Marcelo Trejo, Left foot pain; Rehabilitation Services PT Right foot pain; [place] [address] Peroneal tendinitis of both lower legs; [address] [place], [place] Chronic ri ght shoulder pain [facility] [address] [address] [address] [place] [address] (Work) [phone] Social History Tobacco Use Types Packs/Day Years [...] How often do you attend amish or temple Patient refused 08/08/2019 services? Do [...] as of this encounter Care Teams Retail General Manager Relationship Specialty Start Date End Date Noreen Hills APRN ELECTROSTATIC PAINTER PCP - General Nurse Practitioner 01/09/19 12/12/21 [address] [facility] [place] [address] N[place]en Hills APRN ELECTROSTATIC PAINTER Assigned PCP 06/16/[address] [place] [address] [place] [address] documented as of this encounter
--- OUTSIDE RECORDS SUMMARY | 2022-02-06 10:14 | XMS_ITS | Encounter Summary ---
:1965 Author Organization [place] Address [address] [place] [address] Care Team Providers Name Role Phone Vanda Guerrero MD Primary Care Provider [phone] Noreen Hills APRN EMS MANAGER Unavailable [phone] Noreen Hills APRN EMS MANAGER Unavailable [phone] Reason for Visit Reason Comments Diabetes Encounter Details Date Type Department Care Team Description 06/25/2018 Office Visit [facility] Noreen Hills Abnormal l eg movement (Primary Dx); Clinic Pino Haley APRN Constipation, unspecified co nstipation type; [address] [facility] MANAGER Anxiety; [address] [facility] Persistent insomnia; [address] [facility] [address] Moderate episode of recurrent major depr essive disorder (H); [place] [address] [place] [address] Fibromyalgia; [phone] Migraine withou t status migrainosus, not intractable, unspecified migraine type; (Work) Type 2 diabetes mellitus with complicati on, without long-term current use of insulin (H); [phone] Hyperlipidemia LDL goal <100; (Fax) Morbid obesity [...] How often do you attend taoism or shinto Patient refused 08/08/2019 services? Do you belong to any clubs or organizations such as No 08/08/2019 taoism groups, [employer]s, fraternal or athletic groups, or school groups? [...] Comments Blood Pressure 114/58 06/25/2018 9:50 AM ASSISTANT CORPORATE CONTROLLER Pulse 72 06/25/2018 9:50 AM ASSISTANT CORPORATE CONTROLLER Temperature 36.7 ??C (98 ??F) 06/25/2018 9:50 AM ASSISTANT CORPORATE CONTROLLER Respiratory Rate - - Oxygen Saturation 99% 06/25/2018 9:50 AM ASSISTANT CORPORATE CONTROLLER Inhaled Oxygen Concentration - - Weight 82.1 kg (181 lb 1.6 oz) 06/25/2018 9:50 AM ASSISTANT CORPORATE CONTROLLER Height 157.5 cm (5' 2) 06/25/2018 9:50 AM ASSISTANT CORPORATE CONTROLLER Body Mass Index 33.12 06/25/2018 9:50 AM ASSISTANT CORPORATE CONTROLLER documented in this encounter Patient Instructions Patient InstructionsMoliNoreen stone APRN CNP - 06/25/2018 9:40 AM ASSISTANT CORPORATE CONTROLLER 1. See if covered. [facility] (Chronic Pain, Rheumatology, and Fibromayalgia) Lashawn Esquivel & Staci Arambula [phone] 2. Same dose of Cymbalta. Cut Celexa in half (just take 10mg). Hopefully this will help with the legmovements but not worsen anxiety. 3. For constipation. Start fiber capsules. Start with 1 capsule and a big glass of water in the morning. Then increase to 2 capsules with a big glass of water in the afternoon. Message me if this isn'tworking. STANT CORPORATE CONTROLLER documented in this encounter Progress Notes Noreen [...] (FIT), *MA Screening Digital Bilateral TONY Schneider-DNP. STANT CORPORATE CONTROLLER documented in this encounter Plan of [...] Depression Total Score: 7 06/25/2018 9:49 AM ASSISTANT CORPORATE CONTROLLER documented as of this encounter Care Teams Data Clerk Relationship Specialty Start Date End Date Vanda Guerrero MD PCP - General Internal Medicine 04/08/15 01/08/[address] [place] [address] [place] [address] Noreen Hills APRN PCP - Assigned PCP 06/16/18 08/13/[address] [place] [address] Noreen Hills APRN Assigned PCP 06/16/[address] [place] [address] documented as of this encounter
--- OUTSIDE RECORDS SUMMARY | 2022-02-06 10:14 | XMS_ITS | Encounter Summary ---
:1965 Author Organization [place] Address [address] [place] [address] Care Team Providers Name Role Phone Vanda Guerrero MD Primary Care Provider [phone] Noreen Hills APRN PIANO REGULATOR Unavailable [phone] Reason for Visit Reason Onset Date Comments Panel Management 12/09/2018 Encounter Details Date Type Department Care Team Description 12/09/2018 Telephone [facility] Noreen Hills Management Pino Haley APRN PIANO REGULATOR [address]305 [facility] [address] [facility] [address] [place] [address] [place] [phone] Social History Tobacco Use Types Packs/Day Years [...] How often do you attend holiness or sabianist Patient refused 08/08/2019 services? Do [...] with pre-visit labs. Type of outreach: Sent [email or web address] message. Questions for provider review: None Christi Panda CMA Chart routed to Care Team . documented in this encounter Plan of Treatment Not on filedocumented as of this encounter Visit Diagnoses Not on filedocumented in this encounter Additional Health Concerns Assessment Noted Time PHQ-9 Depression Total Score: 7 06/25/2018 9:49 AM OIL OPERATOR documented as of this encounter Care Teams Java Programmer Analyst Relationship Specialty Start Date End Date Vanda Guerrero MD PCP - General Internal Medicine 04/08/15 01/08/19 [address] [facility] [place] [address] Noreen Hills APRN PIANO REGULATOR Assigned PCP 06/16/[address] [place] [address] [place] [phone] documented as of this encounter
--- OUTSIDE RECORDS SUMMARY | 2022-02-06 10:14 | XMS_ITS | Encounter Summary ---
:1965 Author Organization [place] Address [address] [place] [address] Care Team Providers Name Role Phone Noreen Hills APRN, CNP Unavailable [phone] Noreen Hills APRN, CNP Primary Care Provider [phone] Reason for Visit Diagnostic Imaging XR (Routine) - Closed Specialty Diagnoses / Procedures Referred By Contact Refer red To Contact Diagnoses Left foot pain Agatha Null, DPM, Procedures XR Foot Left G/E 3 Views Podiatry/Foot and Ankle Surgery [address] [place] [address] Referral ID Status Reason Start Date Expiration Date Visits Requ ested Visits Authorized [id number] Closed 01/21/2019 01/21/2020 1 1 Encounter Details Date Type Department Care Team Description 01/21/2019 [facility] [place] DPM, Podiatry/Foot [address] [facility] [place] [address] [address] [phone] [facility] [address] [place] [address] Social History Tobacco Use Types [...] How often do you attend spiritism or hinduism Patient refused 08/08/2019 services? Do you belong to any clubs or organizations such as No 08/08/2019 spiritism groups, [employer], fraRentelligence or athletic groups, or school groups? How [...] documented as of this encounter Care Teams Tying Machine Operator Relationship Specialty Start Date End Date Noreen Hills APRN KEY BED INSTALLER PCP - General Nurse Practitioner 01/09/19 12/12/[address] [place] [address] [place] [address] Noreen Hills APRN KEY BED INSTALLER Assigned PCP 06/16/[address] [place] [address] [place] [address] documented as of this encounter
--- OUTSIDE RECORDS SUMMARY | 2022-02-06 10:14 | XMS_ITS | Encounter Summary ---
:1965 Author Organization [place] Address [address] [place] [address] Care Team Providers Name Role Phone Vanda Guerrero MD Primary Care Provider [phone] Noreen Hills APRN TYING MACHINE OPERATOR LUMBER Unavailable [phone] Encounter Details Date Type Department Care Team [...] as of this encounter Care Teams Client Care Coordinator Relationship Specialty Start Date End Date Vanda Guerrero MD PCP - General Internal Medicine 04/08/15 01/08/[address] [place] [address] [place] [address] Noreen Hills APRN TYING MACHINE OPERATOR LUMBER Assigned PCP 06/16/[address] [place] [address] [place] [address] documented as of this encounter
--- OUTSIDE RECORDS SUMMARY | 2022-02-06 10:14 | XMS_ITS | Encounter Summary ---
:1965 Author Organization [place] Address [address] [place] [address] Care Team Providers Name Role Phone Noreen Hills APRN, CNP Unavailable [phone] Noreen Hills APRN, CNP Primary Care Provider [phone] Reason for Visit [facility] (Routine) - Closed Specialty Diagnoses / Procedures Referred By Contact Refer red To Contact Diagnoses Left foot pain Right foot pain Coello's neuroma of both feet Pes cavus Peroneal tendinitis of both lower legs Agatha Null, DPM, Podiatry/Foot and Ankle Surgery [address] [place] [address] Referral ID Status Reason Start Date Expiration Date Visits Requ ested Visits Authorized [id number] Closed 01/21/2019 06/10/2019 30 30 Encounter Details Date Type Department Care Team Description 01/28/2019 Therapy Visit [facility] Marcelo Trejo, Left foot pain; Rehabilitation Services PT Right foot pain; P[place] [address] Coello's neuroma of both feet; [address] [place], [place] Pes cavus; [address] [address] Peroneal tendinitis of both lower legs; [address] Chronic right shoulder pain PinoDAVID [address] (Work) [phone] Social History Tobacco Use Types Packs/Day Years [...] Trejo, PT - 01/28/2019 10:00 AM CDT [facility] Initial Evaluation Subjective: The history is provided by the patient. No english as a second language instructor was used. Megan Choi being seen for [...] gradually worsening. Special tests: X-ray. 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
--- OUTSIDE RECORDS SUMMARY | 2022-02-06 10:14 | XMS_ITS | Encounter Summary ---
:1965 Author Organization [place] Address [address] [place] [address] Care Team Providers Name Role Phone Noreen Hills APRN, CNP Unavailable [phone] Noreen Hills APRN, CNP Primary Care Provider [phone] Encounter Details Date Type Department Care Team [...] How often do you attend episcopalian or baptist Patient refused 08/08/2019 services? Do [...] documented as of this encounter Care Teams Electro Mechanical Technician Relationship Specialty Start Date End Date Noreen Hills APRN VETERINARY X RAY OPERATOR PCP - General Nurse Practitioner 01/09/19 12/12/[address] [place] [address] [place] [address] Noreen Hills APRN VETERINARY X RAY OPERATOR Assigned PCP 06/16/[address] [place] [address] [place] [address] documented as of this encounter
--- OUTSIDE RECORDS SUMMARY | 2022-02-06 10:14 | XMS_ITS | Encounter Summary ---
:1965 Author Organization [place] Address [address] [place] [address] Care Team Providers Name Role Phone Vanda Guerrero MD Primary Care Provider [phone] Noreen Hills APRN SUPERVISOR HOT DIP TINNING Unavailable [phone] Noreen Hills APRN, CNP Primary Care Provider [phone] Reason for Visit Reason Comments Medication Refill Encounter Details Date Type Department Care Team Description 01/07/2019 Refill [facility] Noreen Hills, Medication Refill Pino ESTRADA SUPERVISOR HOT DIP TINNING 3303 [facility] 3305 [facility] [address] [place] [address] [place] [address] [phone] Social History Tobacco Use Types Packs/Day Years [...] How often do you attend congregation or christianity Patient refused 08/08/2019 services? Do [...] documented as of this encounter Care Teams Chute Boss Relationship Specialty Start Date End Date Vanda Guerrero MD PCP - General Internal Medicine 04/08/15 01/08/[address] [place] [address] [place] [address] Noreen Hills APRN SUPERVISOR HOT DIP TINNING PCP - General Nurse Practitioner 01/09/19 12/12/[address] [place] [address] [place] [address] Noreen Hills APRN SUPERVISOR HOT DIP TINNING Assigned PCP 06/16/[address] [place] [address] [place] [address] documented as of this encounter
--- OUTSIDE RECORDS SUMMARY | 2022-02-06 10:14 | XMS_ITS | Encounter Summary ---
:1965 Author Organization [place] Address [address] [place] [address] Care Team Providers Name Role Phone Noreen Hills APRN RESIDENCE SUPERVISOR Unavailable [phone] Noreen Hills APRN RESIDENCE SUPERVISOR Primary Care Provider [phone] Encounter Details Date Type Department Care Team Description 02/03/2019 Orders Only [facility] Noreen Hills Type 2 [facility] Pino Haley APRN mellitus wit h Laboratory RESIDENCE SUPERVISOR complication, without [address] [facility] long- term current use [facility] of insulin (H) [address] [place] [address] [place] [phone] Social History Tobacco Use Types Packs/Day Years [...] How often do you attend jew or spiritism Patient refused 08/08/2019 services? Do [...] [facility] FIT ve 10:58 AM CDT [facility] Specimen Anatomical Collection Method Collection Time Receive d Time (Source) Location / / Volume Laterality Stool specimen 01/25/2019 7:35 AM 019 (specimen) CDT 10:01 AM CDT Noreen Hills APRN, CNP LAB - STOOLS ORDERABLES Performing Organization Address City/State/ZIP Code Phon e Number [facility] [address] [place], [place] [id number] [place] [address] documented in this encounter Visit Diagnoses Diagnosis Type 2 diabetes mellitus with complicati on, without long-term current use of insulin (H) documented in this encounter Additional Health Concerns Assessment Noted Time PHQ-9 Depression Total Score: 10 01/02/2019 10:18 AM C DT documented as of this encounter Care Teams Rn Prior Authorization Relationship Specialty Start Date End Date Noreen Hills APRN CNP PCP - General Nurse Practitioner 01/09/19 12/12/21 [address] [facility] [place] [address] Noreen Hills APRN CNP Assigned PCP 06/16/18 [address] [facility] [place] [address] documented as of this encounter
--- OUTSIDE RECORDS SUMMARY | 2022-02-06 10:14 | XMS_ITS | Encounter Summary ---
:1965 Author Organization [place] Address [address] [place] [address] Care Team Providers Name Role Phone Vanda Guerrero MD Primary Care Provider [phone] Noreen Hills APRN CROSS TIE TRAM LOADER Unavailable [phone] Encounter Details Date Type Department Care Team [...] How often do you attend amish or advent Patient refused 08/08/2019 services? Do [...] Depression Total Score: 7 06/25/2018 9:49 AM CHOKER HOOKER documented as of this encounter Care Teams Welder Plastic Relationship Specialty Start Date End Date Vanda Guerrero MD PCP - General Internal Medicine 04/08/15 01/08/[address] [place] [address] [place] [address] Noreen Hills APRN CROSS TIE TRAM LOADER Assigned PCP 06/16/18 [address]305 [facility] [place] [address] documented as of this encounter
--- OUTSIDE RECORDS SUMMARY | 2022-02-06 10:14 | XMS_ITS | Encounter Summary ---
:1965 Author Organization [place] Address [facility] [place] [address] Care Team Providers Name Role Phone Vanda Guerrero MD Primary Care Provider [phone] Noreen Hills APRN PAINT FORMULATOR Unavailable [phone] Reason for Referral Consultation (Routine) - Closed Specialty Diagnoses / Procedures Referred By Contact Refer red To Contact Diagnoses Fibromyalgia Kavin Fitzgerald ARTHRITIS & RHEUMATOLOGY [place] [address] [place], [place] [id number] [facility] [place] [address] [place] [address] [phone] Referral ID Status Reason Start Date Expiration Date Visits Requ ested Visits Authorized [id number] Closed 11/13/2018 11/13/2019 1 1 Reason for Visit Reason Comments Joint Pain Encounter Details Date Type Department Care Team Description 11/13/2018 Office Visit [facility] Kavin Fitzgerald Fibr omyalgia (Primary Clinic Pino Fernandez PA-C Dx) [address] [place] [address] [place] [address] [address] [place] [address] [place] [address] Social History Tobacco Use [...] How often do you attend mandaeism or muslim Patient refused 08/08/2019 services? Do [...] offered to her. 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 Review of Systems ROS COMP: otherwise NEGATIVE Objective BP 130/64 (BP Location: Right arm, Patient Position: Chair, Cuff Size: Adult Regular) Pulse 92 Temp 97.4 ??F (36.3 ??C) (Tympanic) Ht 1.575 m (5' 2) Wt 83.9 kg (185 lb) LMP 10/30/2011 OkC223% BMI 33.84 kg/m?? Body mass index is [...] MG tablet, RHEUMATOLOGY REFERRAL Kavin Fitzgerald PA-C [facility] documented in this encounter Plan of Treatment Scheduled Referrals Name Type Priority Associated Diagnoses [facility]FERR[facility] Referral Routine Fibromyalgia Ordere d: 11/13/2018 documented as of this encounter Visit Diagnoses Diagnosis Fibromyalgia - Primary Mylagia and myositis, unspecified documented in this encounter Additional Health Concerns Assessment Noted Time PHQ-9 Depression Total Score: 7 06/25/2018 9:49 AM COOK HELPER MEAT documented as of this encounter Care Teams Aircraft Servicer Relationship Specialty Start Date End Date Vanda Guerrero MD PCP - General Internal Medicine 04/08/15 01/08/19 [address] [facility] [place] [address] Noreen Hills APRN PAINT FORMULATOR Assigned PCP 06/16/18 [address] [facility] [place] [address] documented as of this encounter
--- OUTSIDE RECORDS SUMMARY | 2022-02-06 10:14 | XMS_ITS | Encounter Summary ---
:1965 Author Organization [place] Address [address] [place] [address] Care Team Providers Name Role Phone Vanda Guerrero MD Primary Care Provider [phone] Noreen Hills APRN TICKET MANAGER Unavailable [phone] Encounter Details Date Type Department Care Team [...] How often do you attend samaritan or taoist Patient refused 08/08/2019 services? Do [...] Depression Total Score: 7 06/25/2018 9:49 AM LAUNDRY LABORER documented as of this encounter Care Teams Tax Director Relationship Specialty Start Date End Date Vanda Guerrero MD PCP - General Internal Medicine 04/08/15 01/08/[address] [place] [address] [place] [address] Noreen Hills APRN TICKET MANAGER Assigned PCP 06/16/18 [address]305 [facility] [place] [address] documented as of this encounter
--- OUTSIDE RECORDS SUMMARY | 2022-02-06 10:15 | XMS_ITS | Encounter Summary ---
:1965 Author Organization [place] Address [address] [place] [address] Care Team Providers Name Role Phone Vanda Guerrero MD Primary Care Provider [phone] Vanda Guerrero MD Unavailable Reason for Referral Care Coordination - Closed Specialty Diagnoses / Procedures Referred By Contact Refer red To Contact Diagnoses Acute bilateral low back pain without sciatica N[place]en Hills APRN POLISHING WHEEL REPAIRER [address] [place] [address] [place] [address] Referral ID Status Reason Start Date Expiration Date Visits Requ ested Visits Authorized [id number] Closed 04/09/2018 04/09/2019 1 1 Reason for Visit Reason Comments Back Pain Encounter Details Date Type Department Care Team Description 04/09/2018 Office Visit [facility] Noreen Hills Acute bila teral low back pain without sciatica (Primary Dx); Clinic Pino Haley APRN Symptomatic menopausal or fe male climacteric states; [address] [facility] Type 2 diabetes mellitus without complic ation, without long-term current use of insulin (H); [address] [facility] LDL goal <100 ; [address] [facility] Migraine without status migrainosus, not intractable, unspecified migraine type; [place] [address] [place] [address] Anxiety; [phone] Moderate episod e of recurrent major depressive disorder (H); (Work) Fibromyalgia; [phone] Encounter for s creening for HIV; (Fax) [...] How often do you attend tenriism or advent Patient refused 08/08/2019 services? 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 Date Jun 2017 Sees a specialist for [...] Signature Ferritin 55 8 - 252 04/09/2018 [facility] ng/mL 5:17 PM CDT [facility] Specimen Anatomical Collection Method Collection Time Receive d Time (Source) Location / / Volume Laterality Blood specimen 04/09/2018 11:07 8 (specimen) AM CDT 11:12 AM CDT N[place]en Hills APRN, CNP LAB - BLOOD ORDERABLES Performing Organization Address City/State/ZIP Code Phon e Number [facility] [address] [place] [address] Albumin Random Urine Quantitative with Creat Ratio (04/09/2018 10:10 AM CDT) athologist Signature Creatinine 138 mg/dL 04/09/2018 [place] Urine 5:28 PM CDT [facility] Albumin Urine 8 mg/L 04/09/2018 [place] mg/L 5:33 PM CDT [facility] Albumin Urine 5.51 0 - 25 04/09/2018 [place] mg/g Cr mg/g Cr 5:33 PM CDT [facility] Specimen Anatomical Collection Method Collection Time Receive d Time (Source) Location / / Volume Laterality Urine specimen 04/09/2018 10:10 8 (specimen) AM CDT 10:15 AM CDT N[place]en Hills APRN POLISHING WHEEL REPAIRER LAB - URINE ORDERABLES Performing Organization Address City/State/ZIP Code Phon e Number [facility] [address] [place] [address] HIV Antigen Antibody Combo (04/09/2018 10:09 AM CDT) [facility] gist Method Time Signature HIV Antigen Nonreactive NR^Nonrea 04/10/2018 [facility] ctive 7:29 AM CDT [facility] Comment: HIV-1 p24 Ag & HIV-1/HIV-2 Ab N ot Detected Specimen Anatomical Collection Method Collection Time Receive d Time (Source) Location / / Volume Laterality Blood specimen 04/09/2018 10:09 8 (specimen) AM CDT 10:15 AM CDT N[place]en Hills APRN POLISHING WHEEL REPAIRER LAB - BLOOD ORDERABLES Performing Organization Address City/[facility]/ZIP Code Phon e Number [facility] [address] [place] [address] [place] (ABNORMAL) Basic metabolic panel (04/09/2018 10:09 AM CDT) Analysis Performed At [facility] logist Time Signature Sodium 143 133 - 144 04/09/2018 [place] mmol/L 2:28 PM CDT [facility] Potassium 4.2 3.4 - 5.3 04/09/2018 [facility] mmol/L 2:28 PM CDT [facility] Chloride 109 94 - 109 04/09/2018 [place] mmol/L 2:28 PM CDT [facility] Carbon Dioxide 27 20 - 32 04/09/2018 [facility] mmol/L 2:28 PM CDT [facility] Anion Gap 7 3 - 14 04/09/2018 [place] mmol/L 2:28 PM CDT [facility] Glucose 133 (H) 70 - 99 04/09/2018 [place] mg/dL 2:28 PM CDT [facility] Comment: Fasting specimen Urea Nitrogen 10 7 - 30 mg/dL 04/09/2018 2:28 PM CDT [facility] Creatinine 0.77 0.52 - 1.04 mg/dL 04/09/2018 2:28 PM CD T [facility] GFR Estimate 78 >60 mL/min/1.7m2 04/09/2018 2:28 PM C DT [facility] Comment: Non GFR Calc GFR Estimate If >90 >60 mL/min/1.7m2 04/09/2018 2:28 P M [facility] Black [facility] Comment: GFR Calc Calcium 9.7 8.5 - 10.1 mg/dL 04/09/2018 2:28 PM CDT [facility] Specimen Anatomical Collection Method Collection Time Receive d Time (Source) Location / / Volume Laterality Blood specimen 04/09/2018 10:09 8 (specimen) AM CDT 10:15 AM CDT Noreen Hills AMMONIA NITRATE OPERATOR POLISHING WHEEL REPAIRER LAB - BLOOD ORDERABLES Performing Organization Address City/State/ZIP Code Phon e Number [facility] [address] [place] [address] (ABNORMAL) Lipid panel reflex to direct LDL Fasting (04/09/2018 10:09 AM CDT) Analysis Performed At Patho logist Time Signature Cholesterol 175 <200 mg/dL 04/09/2018 [place] 2:28 PM [facility] Triglycerides 213 (H) <150 mg/dL 04/09/2018 [place] 2:28 PM [facility] Comment: Borderline high: ??150-199 mg/dl High: ? 200-499 mg/dl Very high: ? >499 mg/dl Fasting specimen HDL Cholesterol 45 (L) >49 mg/dL 04/09/2018 2:28 PM [facility] LDL Cholesterol 87 <100 mg/dL 04/09/2018 2:28 PM [facility] Calculated [facility] Comment: Desirable: <100 mg/dl Non HDL Cholesterol 130 (H) <130 mg/dL 04/09/2018 2:28 PM [facility] Comment: Above Desirable: ??130-159 mg/dl Borderline high: ??160-189 mg/dl High: ? 190-219 mg/dl Very high: ? >219 mg/dl Specimen Anatomical Collection Method Collection Time Receive d Time (Source) Location / / Volume Laterality Blood specimen 04/09/2018 10:09 8 (specimen) AM CDT 10:15 AM CDT [place] APRN, CNP LAB - BLOOD ORDERABLES Performing Organization Address City/[facility]/ZIP Code Phon e Number [facility] [address] [place] [address] (ABNORMAL) Hemoglobin A1c (04/09/2018 10:09 AM CDT) P athologist Signature Hemoglobin A1C 6.1 (H) 0 - 5.6 % 04/09/2018 [place] 10:35 AM CDT [facility] Comment: Normal <5.7% Prediabetes 5.7-6.4% ??Diab etes 6.5% or higher - adopted from ADA consensus guidelines. Specimen Anatomical Collection Method Collection Time Receive d Time (Source) Location / / Volume Laterality Blood specimen 04/09/2018 10:09 8 (specimen) AM CDT 10:15 AM CDT [place] APRN, CNP LAB - BLOOD ORDERABLES Performing Organization Address City/[facility]/ZIP Code Phon e Number [facility] [address] [place] [address] documented in this encounter Visit Diagnoses Diagnosis [...] documented as of this encounter Care Teams Gasoline Truck Crane Operator Relationship Specialty Start Date End Date Vanda Guerrero MD PCP - General Internal Medicine 04/08/15 01/08/19 [address] [facility] [place] [address] Vanda Guerrero MD PCP - Assigned PCP 07/24/16 06/15/18 [address] [facility] [place] [address] documented as of this encounter
--- OUTSIDE RECORDS SUMMARY | 2022-02-06 10:15 | XMS_ITS | Encounter Summary ---
:1965 Author Organization [place] Address [address] [place] [address] Care Team Providers Name Role Phone Vanda Guerrero MD Primary Care Provider [phone] Vanda Guerrero MD Unavailable JeanaNoreen girard MASON FOREMAN/SUPERINTENDANT METALLIC YARN SLITTING MACHINE OPERATOR Unavailable [phone] JeanaNoreen girard MASON FOREMAN/SUPERINTENDANT METALLIC YARN SLITTING MACHINE OPERATOR Unavailable [phone] JeanaNoreen girard MASON FOREMAN/SUPERINTENDANT METALLIC YARN SLITTING MACHINE OPERATOR Primary Care Provider Kalyan Galvan Unavailable Unavailable Lashae Trevino [facility] Unavailable [phone] Eduardo Sharma MD Unavailable Rios Monteiro MD Unavailable Marcelo Artis-C Unavailable [phone] Rodrigo Man-C Unavailable Reason for Visit Reason Comments Medication Refill ONETOUCH ULTRA test strip; s imvastatin (ZOCOR) 20 MG tablet Encounter Details Date Type Department Care Team Description 12/21/2017 Refill [facility] Vanda Guerrero M edication Refill Clinic Pino SALDANA (ONETOUCH ULTRA test [address] [place] 3305 [facility] strip ; simvastatin [facility] (ZOCOR) 20 MG tablet) [address] [place] [address] [place] [phone] Social History Tobacco Use Types Packs/Day Years [...] How often do you attend faith or scientology Patient refused 08/08/2019 services? Do [...] 12/25/2017 10:56 AM CDT Prescription approved per [facility] Refill Protocol. Day [place] RN, BSN Telephone [...] documented as of this encounter Care Teams House Worker General Relationship Specialty Start Date End Date Vanda Guerrero, PCP - General Internal Medicine 04/08/15 01/08/[address] [place] [address] [place] [address] Vanda Guerrero, PCP - Assigned PCP 07/24/16 [facility] [place] [address] Noreen Hills PCP - Assigned PCP 06/16/18 08/13/18 SEAN Haley METALLIC YARN SLITTING MACHINE OPERATOR [facility] [place] [address] Noreen Hills PCP - General Nurse Practitioner 01/09/19 12/12/21 SEAN Haley METALLIC YARN SLITTING MACHINE OPERATOR [facility] [place] [address] Noreen Hills Assigned PCP 06/16/18 SEAN Haley METALLIC YARN SLITTING MACHINE OPERATOR [address] [place] [address] [place] [phone] Kalyan Galvan Personal Advocate & 08/08/19 Liaison (PAL) Lashae Trevino Pharmacist Pharmacist 10/14/19 12/01/20 [facility] [address] [address] Eduardo Sharma MD Assigned Sleep Provider 04/02/20 05/07/[address] [place] [address] [place] [address] Rios Monteiro MD Assigned Musculoskeletal 04/02/20 08/24/[address] Provider [address] [place], [place] [address] Marcelo Artis Assigned Musculoskeletal 08/25/20 08/20/21 MIKAYLA Nuno Provider [address] [place], [place] [address] Rodrigo Man Assigned Surgical 08/25/2011/27 MIKAYLA Lacy Provider [address] [place] [address] documented as of this encounter
--- OUTSIDE RECORDS SUMMARY | 2022-02-06 10:15 | XMS_ITS | Encounter Summary ---
:1965 Author Organization [place] Address [address] [place] [address] Care Team Providers Name Role Phone Vanda Guerrero MD Primary Care Provider [phone] Vanda Guerrero MD Unavailable Reason for Referral - Closed Specialty Diagnoses / Procedures Referred By Contact Refer red To Contact Diagnoses Cervical facet joint syndrome Rosalia Main, SEAN NEURO PSYCH SALES SPECIALIST [facility] [address] [place] [address] Referral ID Status Reason Start Date Expiration Date Visits Requ ested Visits Authorized [id number] Closed 06/29/2017 06/29/2018 1 1 ING LIVESTOCK WORKER Reason for Visit Reason Onset Date Comments Results 06/29/2017 Encounter Details Date Type Department Care Team Description 06/29/2017 Telephone [facility] Neurosurgery Angella Main, Results [facility] OPEN HEARTH FURNACE OPERATOR NEURO PSYCH SALES SPECIALIST [address] [facility] [address] [place] [address] [address] [place], [place] [address] (Wo rk) Social History [...] How often do you attend mosque or mu-ism Patient refused 08/08/2019 services? Do [...] Main APRN CNP - 06/29/2017 2:11 PM SORTING LIVESTOCK WORKER Pt contacted with MRI results. Fusion solid. She was very concerned about her C1-2 and was told years ago there was something wrong. Her C1-2 per MRI is normal. She does have facet degeneration on the right. Recc. Injections and PT. She is open to this. Rosalia Main NEURO PSYCH SALES SPECIALIST [facility] [address] [place] [address]. [address] Tel. [phone] ING LIVESTOCK WORKER documented in this encounter Plan of [...] documented as of this encounter Care Teams Brick Carrier Relationship Specialty Start Date End Date Vanda Guerrero MD PCP - General Internal Medicine 04/08/15 01/08/[address] [place] [address] [place] [address] Vanda Guerrero MD PCP - Assigned PCP 07/24/16 06/15/[address] [place] [address] [place] [address] documented as of this encounter
--- OUTSIDE RECORDS SUMMARY | 2022-02-06 10:15 | XMS_ITS | Encounter Summary ---
:1965 Author Organization [place] Address [address] [place] [address] Care Team Providers Name Role Phone Vanda Guerrero MD Primary Care Provider [phone] Vanda Guerrero MD Unavailable Reason for Visit Reason Comments Medication Refill blood glucose monitoring (ON E TOUCH ULTRA) test strip (Discontinued) Encounter Details Date Type Department Care Team Description 09/22/2017 Refill [facility] Vanda Guerrero M edication Refill Clinic Pino SALDANA (blood glucose [address] [place] [address]305 [facility] monit oring (ONE TOUCH [facility] [address] [facility] [address] ULTRA) test strip [address] [place] [address] (Discontinued)) [place] [phone] Social History Tobacco Use Types Packs/Day Years [...] How often do you attend caodaism or church Patient refused 08/08/2019 services? Do [...] 09/25/2017 9:58 AM CDT Prescription approved per [facility] Refill Protocol. Telephone Encounter - Efren Roldan [...] documented as of this encounter Care Teams Modeling Agency Manager Relationship Specialty Start Date End Date Vanda Guerrero MD PCP - General Internal Medicine 04/08/15 01/08/[address] [place] [address] [place] [address] Vanda Guerrero MD PCP - Assigned PCP 07/24/16 06/15/[address] [place] [address] [place] [address] documented as of this encounter
--- OUTSIDE RECORDS SUMMARY | 2022-02-06 10:15 | XMS_ITS | Encounter Summary ---
:1965 Author Organization [place] Address [address] [place] [address] Care Team Providers Name Role Phone Vanda Guerrero MD Primary Care Provider [phone] Vanda Guerrero MD Unavailable Reason for Referral Diagnostic Imaging MRI - Closed Specialty Diagnoses / Procedures Referred By Contact Refer red To Contact Radiology. Diagnoses Rosalia Pagan APRN Mri Procedures MR Cervical Spine w/o Contrast ARMATURE BALANCER [address] [facility] [place], [place] [address] [place] [address] [address] [place] [address] Referral ID Status Reason Start Date Expiration Date Visits Requ ested Visits Authorized [id number] Closed 06/27/2017 06/27/2018 1 1 OSURGERY SPINE PHYSICIAN Reason for Visit Diagnostic Imaging MRI - Closed Specialty Diagnoses / Procedures Referred By Contact Refer red To Contact Radiology. Diagnoses Rosalia Pagan APRN Mri Procedures MR Cervical Spine w/o Contrast ARMATURE BALANCER [address] [facility] [place], [place] [address] [place] [address] [address] [place] [address] Referral ID Status Reason Start Date Expiration Date Visits Requ ested Visits Authorized [id number] Closed 06/27/2017 06/27/2018 1 1 Encounter Details Date Type Department Care Team Description 06/28/2017 Hospital Encounter [facility] Angella Main, Cervicalgia Imaging VERIFYING SPECIALIST ARMATURE BALANCER [address] [facility] [place] [address] [facility] [address] [address] [place] [address] (Wo rk) Social History Tobacco Use Types [...] capsule 8 capsule 0 017 01/02/2019 D3) 64828 UNITS (50,000 Units) by capsuleIndications: mouth once [...] or female climacteric states fluticasone (FLONASE) 50 [place] 1-2 sprays 3 Bottle 3 06/1208/07/2019 MCG/ACT [...] Cervicalgia Resu lts for this W/O CONTRAST NEUROSURGERY SPINE PHYSICIAN procedure are i n the results section. documented in this encounter Results MR Cervical Spine w/o Contrast (06/28/2017 1:36 PM NEUROSURGERY SPINE PHYSICIAN) Anatomical Region Laterality Modality Spine, SUBRAD MR NEURO, UMP MR SPINE, RAD MR Magnetic Resonance Specimen (Source) Anatomical Location Collection Method / Collectio n Time Received Time / Laterality Volume Impressions 06/28/2017 2:37 PM NEUROSURGERY SPINE PHYSICIAN IMPRESSION: ?? 1. Anterior fusion at C5-C6 [...] MILAGROS JC MD Narrative 06/28/2017 2:37 PM NEUROSURGERY SPINE PHYSICIAN MRI CERVICAL SPINE WITHOUT CONTRAST June 28, [...] level. MILAGROS JC MD Rosalia Angeles Etelvina VERIFYING SPECIALIST ARMATURE BALANCER IMG MRI ORDERABLES documented in this encounter Visit Diagnoses Diagnosis Cervicalgia documented in this encounter Additional Health Concerns Assessment Noted Time PHQ-9 Depression Total Score: 12 06/12/2017 1:02 PM CS T documented as of this encounter Care Teams Trestle Mechanic Relationship Specialty Start Date End Date Vanda Guerrero MD PCP - General Internal Medicine 04/08/15 01/08/19 [address] [facility] [place] [phone] Vanda Guerrero MD PCP - Assigned PCP 07/24/16 06/15/18 [address] [facility] [place] [phone] documented as of this encounter
--- OUTSIDE RECORDS SUMMARY | 2022-02-06 10:15 | XMS_ITS | Encounter Summary ---
:1965 Author Organization [place] Address [address] [place] [address] Care Team Providers Name Role Phone Vanda Guerrero MD Primary Care Provider [phone] Vanda Guerrero MD Unavailable Reason for Visit Reason Onset Date Comments Patient Request for Note/Letter 12/19/2017 Encounter Details Date Type Department Care Team Description 12/19/2017 Telephone [facility] Vanda Guerrero Patient Request for Clinic Pino Toribio MD Note/Letter [address] [place] 3305 [facility] [address] [place] [address] [place] [address] [phone] Social History Tobacco Use Types Packs/Day Years [...] How often do you attend holiness or yazidi Patient refused 08/08/2019 services? Do [...] signed provider. Pt will pickup at front desk specialist downstairs. Telephone Encounter - Vanda Guerrero MD - 12/19/2017 3:04 PM CDT Letter printed, signed, and in station out basket or on MA/DIRECTOR OF EXTENSION WORK/RN desk Telephone Encounter - Lori Weber - [...] Sunday. Needs the letter ALLEN. (Company is [employer]) Detailed comments: Megan will tow picker when the letter is ready. Call her at below number when letter is ready. Phone Number Patient can be reached at: [phone] Best Time: Anytime Can we leave a [...] documented as of this encounter Care Teams Co Founder Relationship Specialty Start Date End Date Vanda Guerrero MD PCP - General Internal Medicine 04/08/15 01/08/[address] [place] [address] [place] [address] Vanda Guerrero MD PCP - Assigned PCP 07/24/16 06/15/[address] [place] [address] [place] [address] documented as of this encounter
--- OUTSIDE RECORDS SUMMARY | 2022-02-06 10:15 | XMS_ITS | Encounter Summary ---
:1965 Author Organization [place] Address [address] [place] [address] Care Team Providers Name Role Phone Vanda Guerrero MD Primary Care Provider [phone] Vanda Guerrero MD Unavailable Reason for Visit Reason Onset Date Comments Refill Request 02/15/2018 topiramate (TOPAMAX) 50 MG tablet Refill Request 02/15/2018 citalopram (CELEXA) 20 MG tablet Encounter Details Date Type Department Care Team Description 02/15/2018 Refill [facility] Vanda Guerrero R efill Request Clinic Pino SALDANA (topiramate (TOPAMAX) [address] [place] 3305 [facility] 50 MG tablet); Refill [facility] Request (citalopram [address] [place] [address] (CELEXA) 20 MG tablet) [place] [phone] Social History Tobacco Use Types Packs/Day Years [...] How often do you attend tenriism or hinduism Patient refused 08/08/2019 services? Do [...] of protocol range. Thea Gonzalez RN BSN [facility] [phone] Telephone Encounter - Liya Gonzalez RN - 02/17/2018 9:25 PM CDT phq9 sent via [employer]. Topiramate dx is Fibromyalgia and obesity Thea Gonzalez RN BSN [facility] [phone] Telephone Encounter - Efren Pryor - 02/15/2018 [...] HCT 38.1 PLT 229 For [facility] ONLY: [id number] = WBC, [id number] = RBC Passed - Normal ALT or [...] documented as of this encounter Care Teams Mutuel Department Manager Relationship Specialty Start Date End Date Vanda Guerrero MD PCP - General Internal Medicine 04/08/15 01/08/[address] [place] [address] Vanda Guerrero MD PCP - Assigned PCP 07/24/16 06/15/18 [address] [place] [address] documented as of this encounter
--- OUTSIDE RECORDS SUMMARY | 2022-02-06 10:15 | XMS_ITS | Encounter Summary ---
:1965 Author Organization [place] Address [address] [place] [address] Care Team Providers Name Role Phone Vanda Guerrero MD Primary Care Provider [phone] Vanda Guerrero MD Unavailable Encounter Details Date Type Department Care Team Description 07/18/2017 Therapy Visit [facility] Serena Blount (Primary Dx); CHIRO J, [place] Thoracic spine pain; [address] [facility] Cervical segment dysfunction [address] [facility] [address] [address] [place] [id number] Social History Tobacco Use Types Packs/Day Years [...] How often do you attend bahai or buddhism Patient refused 08/08/2019 services? Do [...] to feel looser post manipulation Procedures: CMT: 58418 Chiropractic manipulative treatment 1-2 regions performed Occiput: Gentle distraction-x10, C0, Supine Cervical: Gentle PtoA mob'sC4, T2, Supine NO rotary manipulation due to fusion C5-C7 Activator to right first rib Modalities: 11586: Acupuncture, for 15 minutes: Points: For neck [...] Return to care in one week. E SCALEMAN documented in this encounter Plan of Treatment Not on filedocumented as of this encounter Procedures Procedure Name Priority Date/Time Associated Diagnosis Comme nts ACUPUNCTURE, 1+ Routine 07/18/2017 1:03 PM Cervicalgi a NEEDLES, W/O ELECTRICAL JUICE SCALEMAN Thoracic spine pain STIM; INIT 15 MIN Cervical segment PERSONAL CONTACT dysfunction ZC CHIROPRAC Routine 07/18/2017 1:03 PM Cervicalgia MANIP,SPINAL,1-2 JUICE SCALEMAN Thoracic spine pain REGIONS Cervical segment dysfunction documented in this encounter Visit Diagnoses Diagnosis Cervicalgia - Primary Thoracic spine pain Pain in thoracic spine Cervical segment dysfunction Nonallopathic lesion of cervical region, not elsewhere classified documented in this encounter Additional Health Concerns Assessment Noted Time PHQ-9 Depression Total Score: 12 06/12/2017 1:02 PM CS T documented as of this encounter Care Teams Collar Setter Overlock Relationship Specialty Start Date End Date Vanda Guerrero MD PCP - General Internal Medicine 04/08/15 01/08/19 [address] [facility] [place] [address] Vanda Guerrero MD PCP - Assigned PCP 07/24/16 06/15/[address] [place] [address] [place] [address] documented as of this encounter
--- OUTSIDE RECORDS SUMMARY | 2022-02-06 10:15 | XMS_ITS | Encounter Summary ---
:1965 Author Organization [facility] Address [address] [place] [address] Care Team Providers Name Role Phone Vanda Guerrero MD Primary Care Provider [phone] Vanda Guerrero MD Unavailable Reason for Visit Reason Comments Medication Refill metFORMIN (GLUCOPHAGE) 500 M G tablet Encounter Details Date Type Department Care Team Description 12/08/2017 Refill [facility] Vanda Guerrero M edication Refill Clinic Pino SALDANA (metFORMIN (GLUCOPHAGE) [address] [place] 3305 [facility] 500 M G tablet) [facility] [address] [place] [address] [place] [address] [phone] Social History Tobacco Use Types Packs/Day Years [...] How often do you attend baptist or voodoo Patient refused 08/08/2019 services? Do [...] month diabetes check Radha Manning RN -- [facility] Telephone Encounter - Kartik Javier - [...] documented as of this encounter Care Teams Bite Block Maker Relationship Specialty Start Date End Date Vanda Guerrero MD PCP - General Internal Medicine 04/08/15 01/08/19 3305 [facility] [place] [address] Vanda Guerrero MD PCP - Assigned PCP 07/24/16 06/15/18 3305 [facility] [place] [address] documented as of this encounter
--- OUTSIDE RECORDS SUMMARY | 2022-02-06 10:15 | XMS_ITS | Encounter Summary ---
:1965 Author Organization [facility] Address [address] [place] [address] Care Team Providers Name Role Phone Vanda Guerrero MD Primary Care Provider [phone] Vanda Guerrero MD Unavailable JeanaNoreen girard ORNAMENTAL BRICK INSTALLER FUR FINISHER SEAMSTRESS Unavailable [phone] JeanaNoreen girard ORNAMENTAL BRICK INSTALLER FUR FINISHER SEAMSTRESS Unavailable [phone] JeanaNoreen girard ORNAMENTAL BRICK INSTALLER FUR FINISHER SEAMSTRESS Primary Care Provider [phone] Kalyan Galvan Unavailable Unavailable Lashae Trevino [facility] Unavailable [phone] Eduardo Sharma MD Unavailable Rios Monteiro MD Unavailable Marcelo Artis-C Unavailable [phone] Rodrigo Man PA-C Unavailable Reason for Visit Reason Onset Date Comments Refill Request 03/04/2018 loratadine-pseudoePH EDrine ([facility] RELIEF-D) 10- 240 MG per 24 hr tablet Encounter Details Date Type Department Care Team Description 03/04/2018 Refill [facility] Vanda Guerrero R efill Request [facility] Pino SALDANA (loratadine-pseudoePHED [address] [facility] ([facility] DR RELIEF-D) 10-240 MG per [address] [place] [address] 24 hr tablet) [place] [phone] [phone] Social History Tobacco Use Types Packs/Day Years [...] How often do you attend jainism or scientology Patient refused 08/08/2019 services? Do [...] and in station out basket or on MA/FOREIGN STUDENT ADVISER/RN desk Telephone Encounter - Kartik Javier - [...] of this encounter Care Teams Entry Level Lab Technician Relationship Specialty Start Date End Date Vanda Guerrero, PCP - General Internal Medicine 04/08/15 01/08/[address] [place] [address] [place] [address] Vanda Guerrero, PCP - Assigned PCP 07/24/16 06/15/[address] [place] [address] [place] [address] [place] PCP - Assigned PCP 06/16/18 08/13/18 SEAN Haley FUR FINISHER SEAMSTRESS [address] [place] [address] [place] [address] Noreen [place] PCP - General Nurse Practitioner 01/09/19 12/12/21 SEAN Haley FUR FINISHER SEAMSTRESS [address] [place] [address] [place] [address] Noreen [place] Assigned PCP 06/16/18 SEAN Haley FUR FINISHER SEAMSTRESS [address] [place] [address] [place] [address] Kalyan Galvan Personal Advocate & 08/08/19 Liaison (PAL) Lashae Trevino Pharmacist Pharmacist 10/14/19 12/01/20 Kiran [facility] [address] [id number] Eduardo Sharma MD Assigned Sleep Provider 04/02/20 05/07/[address] [facility] [address] [place] [address] Rios Monteiro MD Assigned Musculoskeletal 04/02/20 08/24/20 [address] [employer] [facility] Provider [address] [place] [id number] Marcelo Artis Assigned Musculoskeletal 08/25/20 08/20/21 MIKAYLA Nuno Provider [address] [facility] 300 [place] [address] Rodrigo Man Assigned Surgical 08/25/2011/27 MIKAYLA Lacy Provider 6545 [facility] 450 [place], [place] 3212[address] documented as of this encounter
--- OUTSIDE RECORDS SUMMARY | 2022-02-06 10:15 | XMS_ITS | Encounter Summary ---
:1965 Author Organization [facility] Address [address] [place] [address] Care Team Providers Name Role Phone Vanda Guerrero MD Primary Care Provider [phone] Vanda Guerrero MD Unavailable Encounter Details Date Type Department Care Team Description 07/09/2017 [facility] Serena Blount (Primary Dx); [place]O J, [place] Cervical segment dysfunction; [address] [facility] Thoracic segment dysfunction [address] [facility] 300 [address] [place] [address] Social History Tobacco Use Types Packs/Day Years [...] How often do you attend mormon or yazdanism Patient refused 08/08/2019 services? Do [...] post manipulation Plan: Procedures: Evaluation and Management: 61837 Moderate level exam 30 min CMT: 90494 Chiropractic manipulative treatment 1-2 regions performed Occiput: Gentle distraction-x10, C0, Supine Cervical: Gentle PtoA mob'sC4, T2, Supine NO rotary manipulation due to fusion C5-C7 Activator to right first rib Modalities: 63605: Acupuncture, for 15 minutes: Points: For neck [...] C5-C7 Activator to right first rib Modalities: 19243: Acupuncture, for 15 minutes: Points: For neck [...] when interpreting information found in this chart. INTEGRATION ARCHITECT documented in this encounter Plan of Treatment Not on filedocumented as of this encounter Procedures Procedure Name Priority Date/Time Associated Diagnosis Comme nts HC ACUPUNCTURE, 1+ Routine 07/09/2017 1:43 PM Cervicalgi a NEEDLES, W/O ELECTRICAL SAP INTEGRATION ARCHITECT Cervical segment STIM; INIT 15 MIN dysfunction PERSONAL CONTACT Thoracic segment dysfunction [facility] CHIROPRAC Routine 07/09/2017 1:43 PM Cervicalgia MANIP,SPINAL,1-2 SAP INTEGRATION ARCHITECT Cervical segment REGIONS dysfunction Thoracic segment dysfunction [...] documented as of this encounter Care Teams Nuclear Control Room Operator Relationship Specialty Start Date End Date Vanda Guerrero MD PCP - General Internal Medicine 04/08/15 01/08/19 3305 [facility] [place] [address] Vanda Guerrero MD PCP - Assigned PCP 07/24/16 06/15/18 3305 [facility] [place] [address] documented as of this encounter
--- OUTSIDE RECORDS SUMMARY | 2022-02-06 10:15 | XMS_ITS | Encounter Summary ---
:1965 Author Organization [facility] Address [address] [place] [address] Care Team Providers Name Role Phone Vanda Guerrero MD Primary Care Provider [phone] Vanda Guerrero MD Unavailable Reason for Visit Reason Onset Date Comments Refill Request 12/04/2017 metFORMIN (GLUCOPHAG E) 500 MG tablet Encounter Details Date Type Department Care Team Description 12/04/2017 Refill [facility] Vanda Guerrero R efill Request Clinic Pino SALDANA (metFORMIN (GLUCOPHAGE) [address] [place] 3305 [facility] 500 M G tablet) [facility] [address] [place] [address] [place] [address] [phone] Social History Tobacco Use Types Packs/Day Years [...] How often do you attend shinto or church Patient refused 08/08/2019 services? Do [...] Requests new Rx, new pharmacy location at [address] [address] documented in this encounter Plan of Treatment Not on filedocumented as of this encounter Visit Diagnoses Diagnosis Type 2 diabetes mellitus without complic ation, without long-term current use of insulin (H) documented in this encounter Additional Health Concerns Assessment Noted Time PHQ-9 Depression Total Score: 12 06/12/2017 1:02 PM CS T documented as of this encounter Care Teams Patternmaker All Around Relationship Specialty Start Date End Date Vanda Guerrero MD PCP - General Internal Medicine 04/08/15 01/08/19 3305 [facility] [place] [address] Vanda Guerrero MD PCP - Assigned PCP 07/24/16 06/15/18 3305 [facility] [place] [address] documented as of this encounter
--- OUTSIDE RECORDS SUMMARY | 2022-02-06 10:15 | XMS_ITS | Encounter Summary ---
:1965 Author Organization [facility] Address [address] [place] [address] Care Team Providers Name Role Phone Vanda Guerrero MD Primary Care Provider [phone] Vanda Guerrero MD Unavailable Reason for Visit Diagnostic Imaging XR - Closed Specialty Diagnoses / Procedures Referred By Contact Refer red To Contact Diagnoses Cervicalgia Rosalia Main APRN Procedures XR Cervical Spine 2/3 Views [facility] [address] [place] [address] [place] [address] Referral ID Status Reason Start Date Expiration Date Visits Requ ested Visits Authorized [id number] Closed 06/27/2017 06/27/2018 1 1 Encounter Details Date Type Department Care Team Description 06/27/2017 Radiant Appointment [facility] Sports Rosalia Main Cervicalbola and Orthopedic Care SEAN [place] CN P [facility] ORTHOPEDICS [address] [place] [address] [place], [place] [phone] Social History Tobacco Use Types Packs/Day Years [...] How often do you attend anglican or christian Patient refused 08/08/2019 services? Do you belong to any clubs or organizations such as No 08/08/2019 anglican groups, [employer], fraternal or athletic groups, or school groups? [...] Cervicalgia Res ults for this 2/3 VIEWS COMMITTEE MEMBER procedure are i n the results section. documented in this encounter Results XR Cervical Spine 2/3 Views (06/27/2017 10:30 AM COMMITTEE MEMBER) Anatomical Region Laterality Modality Spine Computed Radiography Specimen (Source) Anatomical Location Collection Method / Collectio n Time Received Time / Laterality Volume Impressions 06/27/2017 4:33 PM COMMITTEE MEMBER IMPRESSION: Flexion and extension lateral views only. 1 mm anterolisthesis C2 on C3 and C4 on C5. T hese levels reduce with extension. Anterior interbody fusion C5- C7 appears solid with normal alignment. Degenerative disc space narro wing C3-4. No acute bony or soft tissue abnormality in the lateral v iew. ROHAN PINK MD Narrative 06/27/2017 4:33 PM COMMITTEE MEMBER CERVICAL SPINE TWO - THREE VIEWS 06/27/2017 [...] iew. ROHAN PINK MD Rosalia Main APRN NETWORK CONTROLLER IMG DIAGNOSTIC IMAGING DAMASO MIRAMONTES documented in this encounter Visit Diagnoses Diagnosis Cervicalgia documented in this encounter Additional Health Concerns Assessment Noted Time PHQ-9 Depression Total Score: 12 06/12/2017 1:02 PM CS T documented as of this encounter Care Teams Stave Machine Tender Relationship Specialty Start Date End Date Vanda Guerrero MD PCP - General Internal Medicine 04/08/15 01/08/19 3307 [facility] [place] [id number] Vanda Guerrero MD PCP - Assigned PCP 07/24/16 06/15/18 1105 [facility] [place] [id number] documented as of this encounter
--- OUTSIDE RECORDS SUMMARY | 2022-02-06 10:15 | XMS_ITS | Encounter Summary ---
:1965 Author Organization [facility] Address [address] [place] [address] Care Team Providers Name Role Phone Vanda Guerrero MD Primary Care Provider [phone] Vanda Guerrero MD Unavailable Reason for Visit Reason Comments Medication Refill SUMAtriptan (IMITREX) 25 MG tablet Encounter Details Date Type Department Care Team Description 07/13/2017 Refill [facility] Vanda Guerrero M edication Refill Clinic Pino SALDANA (SUMAtriptan (IMITREX) [address] 3304 [facility] 25 MG tablet) [facility] [address] [place] [address] [place] [address] [phone] Social History Tobacco Use Types Packs/Day Years [...] How often do you attend scientology or faith Patient refused 08/08/2019 services? Do [...] Mimi Roberts RN - 07/13/2017 12:25 PM MANAGER QUANTITATIVE BP Readings from Last 3 Encounters: 07/10/17 118/72 06/27/17 124/77 06/12/17 116/72 Prescription approved per [facility] Refill Protocol. Kassie Roberts RN GER QUANTITATIVE Telephone Encounter - Kartik Javier - 07/13/2017 [...] no refill protocol information for this order GER QUANTITATIVE documented in this encounter Plan of Treatment Not on filedocumented as of this encounter Visit Diagnoses Diagnosis Migraine without status migrainosus, not intractable, unspecified migraine type documented in this encounter Additional Health Concerns Assessment Noted Time PHQ-9 Depression Total Score: 12 06/12/2017 1:02 PM CS T documented as of this encounter Care Teams Staff Services Manager Relationship Specialty Start Date End Date Vanda Guerrero MD PCP - General Internal Medicine 04/08/15 01/08/19 3305 [facility] [place] [address] Vanda Guerrero MD PCP - Assigned PCP 07/24/16 06/15/18 3305 [facility] [place] [address] documented as of this encounter
--- OUTSIDE RECORDS SUMMARY | 2022-02-06 10:15 | XMS_ITS | Encounter Summary ---
:1965 Author Organization [facility] Address [facility] [place] [address] Care Team Providers Name Role Phone Vanda Guerrero MD Primary Care Provider [phone] Vanda Guerrero MD Unavailable Reason for Visit Diagnostic Imaging XR - Closed Specialty Diagnoses / Procedures Referred By Contact Refer red To Contact Diagnoses Cervical facet joint syndrome Jim Wang, Procedures XR Cervical/Thoracic Epidural Inj [address] [place] [address] Referral ID Status Reason Start Date Expiration Date Visits Requ ested Visits Authorized [id number] Closed 07/09/2017 07/09/2018 1 1 Encounter Details Date Type Department Care Team Description 07/10/2017 Radiant Appointment [facility] Jl Wang vical facet Clinic [place] Jim joint synd shola Pain Management MD [place] [address] [place] [address] [address] [place] [address] [place] [phone] [address] (Work) [phone] Social History Tobacco Use Types Packs/Day Years [...] How often do you attend tenriism or confucianism Patient refused 08/08/2019 services? Do you belong to any clubs or organizations such as No 08/08/2019 tenriism groups, [employer]s, fraternal or athletic groups, or school groups? [...] Cervical facet joint Results for this CERVICAL/THORACIC TERMINAL CARMAN syndrome procedure are in EPIDURAL INJ INCL the result s IMAGING section. documented in this encounter Results XR Cervical/Thoracic Epidural Inj (07/10/2017 10:17 AM TERMINAL CARMAN) Specimen (Source) Anatomical Location Collection Method / Collectio n Time Received Time / Laterality Volume Narrative Rosanegla Posada - 07/10/2017 10:43 AM TERMINAL CARMAN This exam was marked as non-reportable because it will not be read by a radiologist or a [facility] non-radiologis t provider. Jim Wang MD IMG DIAGNOSTIC IMAGING ORD ERABLES documented in this encounter Visit Diagnoses Diagnosis Cervical facet joint syndrome Other symptoms referable to back documented in this encounter Administered Medications Inactive Administered Medications - up to 3 most recent administrations Medication Order MAR Action Action Date Dose Rate Site iohexol (OMNIPAQUE) 300 mg/mL Given by Other 07/10/2017 10:42 AM TERMINAL CARMAN 1 mL injection 10 mL 10 mL, EPIDURAL, ONCE, On 07/10/17 at 1030, For 1 dose documented in this encounter Additional Health Concerns Assessment Noted Time PHQ-9 Depression Total Score: 12 06/12/2017 1:02 PM CS T documented as of this encounter Care Teams Brazer Electronic Relationship Specialty Start Date End Date Vanda Guerrero MD PCP - General Internal Medicine 04/08/15 01/08/[address] [place] [address] [place] [address] Vanda Guerrero MD PCP - Assigned PCP 07/24/16 06/15/[address] [place] [address] [place] [address] documented as of this encounter
--- OUTSIDE RECORDS SUMMARY | 2022-02-06 10:15 | XMS_ITS | Encounter Summary ---
:1965 Author Organization [facility] Address [address] [place] [address] Care Team Providers Name Role Phone Vanda Guerrero MD Primary Care Provider [phone] Vanda Guerrero MD Unavailable JeanaNoreen girard ENVELOPE ADDRESSER FISH HATCHERY INSPECTOR Unavailable [phone] JeanaNoreen girard ENVELOPE ADDRESSER FISH HATCHERY INSPECTOR Unavailable [phone] JeanaNoreen girard ENVELOPE ADDRESSER FISH HATCHERY INSPECTOR Primary Care Provider Kalyan Galvan Unavailable Unavailable Lashae Trevino [facility] Unavailable [phone] Eduardo Sharma MD Unavailable Rios Monteiro MD Unavailable Marcelo Artis-C Unavailable [phone] Rodrigo Man-C Unavailable [phone] Reason for Visit Reason Comments Medication Refill zolpidem (AMBIEN) 5 MG table t Encounter Details Date Type Department Care Team Description 02/20/2018 Refill [facility] Vanda Guerrero M edication Refill Clinic Pino SALDANA (zolpidem (AMBIEN) 5 MG [address] [place] 3305 [facility] table t) [facility] [address] [place] [address] [place] [address] [phone] Social History Tobacco Use Types Packs/Day Years [...] How often do you attend religious or quaker Patient refused 08/08/2019 services? Do [...] and in station out basket or on MA/OFFSET PLATE MAKER/RN desk Telephone Encounter - Gayathri Mcallister RN - 02/21/2018 3:33 PM CDT CLUB CAR ATTENDANT checked: patient refilled: 06/12, 07/07 and 10/04 [...] as of this encounter Care Teams Manager Vehicle Relationship Specialty Start Date End Date Vanda Guerrero, PCP - General Internal Medicine 04/08/15 01/08/[address] [place] [address] [place] [id number] Vanda Guerrero, PCP - Assigned PCP 07/24/16 [facility]15[facility]18 [facility] [place] [address] [place] PCP - Assigned PCP 06/16/18 08/13/18 SEAN Haley FISH HATCHERY INSPECTOR 3305 [facility] [place] [address] [place]en [place] PCP - General Nurse Practitioner 01/09/19 12/12/21 SEAN Haley FISH HATCHERY INSPECTOR 3305 [facility] [place] [address] [place] Assigned PCP 06/16/18 SEAN Haley FISH HATCHERY INSPECTOR [address] [facility] [place] [address] Kalyan Galvan Personal Advocate & 08/08/19 Liaison (PAL) Lashae Trevino Pharmacist Pharmacist 10/14/19 12/01/20 Kiran [facility] [address] [place] [id number] Eduardo Sharma MD Assigned Sleep Provider 04/02/20 05/07/21 [address] [place] [address] Rios Monteiro MD Assigned Musculoskeletal 04/02/20 08/24/20 [id number] [facility] [address] [place] [address] Marcelo Artis Assigned Musculoskeletal 08/25/20 08/20/21 MIKAYLA Nuno Provider [address] [place] [address] Rodrigo Man Assigned Surgical 08/25/2011/27 MKIAYLA Lacy Provider [address] [place] [address] documented as of this encounter
--- OUTSIDE RECORDS SUMMARY | 2022-02-06 10:15 | XMS_ITS | Encounter Summary ---
:1965 Author Organization [facility] Address [address] [place] [address] Care Team Providers Name Role Phone Vanda Guerrero MD Primary Care Provider [phone] Vanda Guerrero MD Unavailable Encounter Details Date Type Department Care Team Description 07/27/2017 Therapy Visit [facility] Serena Blount rvicalgia (Primary Dx); Medicine [place] Cervical segment dysfunction 3305 [facility] [address] [place] [address] [place] [id number] Social History Tobacco Use Types Packs/Day Years [...] to feel looser post manipulation Procedures: CMT: 73132 Chiropractic manipulative treatment 1-2 regions performed Occiput: Gentle distraction-x10, C0, Supine Cervical: Gentle PtoA mob'sC4, T2, Supine NO rotary manipulation due to fusion C5-C7 Activator to right first rib Modalities: 47207: Acupuncture, for 15 minutes: Points: For neck [...] Follow-up: Return to care in one week. OW SHADE CUTTER documented in this encounter Plan of Treatment Not on filedocumented as of this encounter Procedures Procedure Name Priority Date/Time Associated Diagnosis Comme nts HC ACUPUNCTURE, 1+ Routine 07/27/2017 10:08 AM Cervicalg ia NEEDLES, W/O ELECTRICAL WINDOW SHADE CUTTER Cervical segment STIM; INIT 15 MIN dysfunction PERSONAL CONTACT [facility] CHIROPRAC Routine 07/27/2017 10:08 AM Cervicalgia MANIP,SPINAL,1-2 WINDOW SHADE CUTTER Cervical segment REGIONS dysfunction documented in this encounter Visit Diagnoses Diagnosis Cervicalgia - Primary Cervical segment dysfunction Nonallopathic lesion of cervical region, not elsewhere classified documented in this encounter Additional Health Concerns Assessment Noted Time PHQ-9 Depression Total Score: 12 06/12/2017 1:02 PM CS T documented as of this encounter Care Teams Cell Attendant Helper Relationship Specialty Start Date End Date Vanda Guerrero MD PCP - General Internal Medicine 04/08/15 01/08/19 3305 [facility] [place] [address] Vanda Guerrero MD PCP - Assigned PCP 07/24/16 06/15/18 3305 [facility] [place] [address] documented as of this encounter
--- OUTSIDE RECORDS SUMMARY | 2022-02-06 10:15 | XMS_ITS | Encounter Summary ---
:1965 Author Organization [place] Address [facility] [place] [address] Care Team Providers Name Role Phone Vanda Guerrero MD Primary Care Provider [phone] Vanda Guerrero MD Unavailable Reason for Referral - Closed Specialty Diagnoses / Procedures Referred By Contact Refer red To Contact Diagnoses Cervical radiculopathy Jim Wang Procedures NO CHARGE ANDREEA Taylor MD [address] [place] [address] Referral ID Status Reason Start Date Expiration Date Visits Requ ested Visits Authorized [id number] Closed 07/10/2017 07/10/2018 1 1 L AND AXLE INSPECTOR Reason for Visit Reason Comments Pain - Closed Specialty Diagnoses / Procedures Referred By Contact Refer red To Contact Diagnoses Cervical facet joint syndrome Rosalia Main APRN MILITARY TECHNOLOGY SPECIALIST [facility] [address] [place] [address] Referral ID Status Reason Start Date Expiration Date Visits Requ ested Visits Authorized [id number] Closed 06/29/2017 06/29/2018 1 1 Encounter Details Date Type Department Care Team Description 07/10/2017 Radiology [facility] Rosalia Main APRN MILITARY TECHNOLOGY SPECIALIST [facility] [address] [place] [address] Cervical Injection Office Pain Management Jim Wang MD [address] [place], [place] [id number] radiculopathy Visit [place] (Primary Dx) [address] [facility] [address] [place] [address] Social History Tobacco Use Types [...] Comments Blood Pressure 118/72 07/10/2017 10:58 AM WHEEL AND AXLE INSPECTOR Pulse 80 07/10/2017 10:58 AM WHEEL AND AXLE INSPECTOR Temperature - - Respiratory Rate - - Oxygen Saturation 100% 07/10/2017 10:58 AM WHEEL AND AXLE INSPECTOR Inhaled Oxygen Concentration - - Weight - - Height - - Body Mass Index - - documented in this encounter Patient Instructions Patient InstructionsSteeCara coley RN - 07/10/2017 10:15 AM CST [facility] Procedure Discharge Instructions Today you [...] pain center line during work hours at [phone] or on-call physician after hours at [phone]: -Fever over 100 degree F -Swelling, bleeding, redness, drainage, warmth at the injection site -Progressive weakness or numbness in your legs or arms -Loss of bowel or bladder function -Unusual headache that is not relieved by Tylenol or your regular headache medication -Unusual new onset of pain that is not improving Phone #s: Nurse triage line for general questions: [phone] L AND AXLE INSPECTOR documented in this encounter Progress Notes Jim Wang MD - 07/10/2017 10:15 AM CST [facility] - Procedure Note Date of Visit: 07/10/2017 Procedure performed: C7-T1 interlaminar epidural steroid injection with fluoroscopic guidance Diagnosis: Cervical spondylosis; Cervical radiculitis/radiculopathy Specialty Plant Supervisor: Jim Wang MD Anesthesia: none Indications: Megan [...] the patient was advised to contact the [facility] for any of the [...] for post-procedure evaluation. Jim WangMD Pain Management L AND AXLE INSPECTOR documented in this encounter Nursing Notes Sandy [...] oral steroids? 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 NO Are the vital signs normal? Yes L AND AXLE INSPECTOR Cara Mcnulty RN - 07/10/2017 10:15 AM CST 22 gauge Peripheral IV inserted into left anticubital - attempts: 1 Cara MORALES-RN Fish Agent [facility] L AND AXLE INSPECTOR Cara Mcnulty RN - 07/10/2017 10:15 AM [...] patient home? Yes Signature/Title: Cara Mcnulty RN Fish Agent [facility] L AND AXLE INSPECTOR documented in this encounter Plan of Treatment Not on filedocumented as of this encounter Visit Diagnoses Diagnosis Cervical radiculopathy - Primary Brachial neuritis or radiculitis nos documented in this encounter Additional Health Concerns Assessment Noted Time PHQ-9 Depression Total Score: 12 06/12/2017 1:02 PM CS T documented as of this encounter Care Teams Instructor Apparel Manufacture Relationship Specialty Start Date End Date Vanda Guerrero MD PCP - General Internal Medicine 04/08/15 01/08/19 [address] [facility] [place] [id number] Vanda Guerrero MD PCP - Assigned PCP 07/24/16 06/15/18 [address] [facility] [place] [id number] documented as of this encounter
--- OUTSIDE RECORDS SUMMARY | 2022-02-06 10:15 | XMS_ITS | Encounter Summary ---
:1965 Author Organization [place] Address [address] [place] [address] Care Team Providers Name Role Phone Vanda Guerrero MD Primary Care Provider [phone] Vanda Guerrero MD Unavailable Reason for Visit Reason Comments Medication Refill citalopram (CELEXA) 20 MG ta blet-DUPLICATE Encounter Details Date Type Department Care Team Description 06/27/2017 Refill [facility] Vanda Guerrero M edication Refill Clinic Pino SALDANA (citalopram (CELEXA) [address] [place] [address] [facility] MG ta blet-DUPLICATE) [facility] [address] [place] [address] [place] [id number] [phone] Social History Tobacco Use Types Packs/Day Years [...] How often do you attend yazidism or church Patient refused 08/08/2019 services? Do [...] CST Sent back as duplicate. Kirsten Casillas, parking officer Nurse UCTION OPERATIONS INSPECTOR Telephone Encounter - Marisa Matthew - 06/27/2017 7:59 AM CST Duplicate. citalopram (CELEXA) 20 MG tablet was filled on 06/12/2017, qty 135 with 3 refills. UCTION OPERATIONS INSPECTOR documented in this encounter Plan of Treatment Not on filedocumented as of this encounter Visit Diagnoses Diagnosis Anxiety Anxiety state, unspecified documented in this encounter Additional Health Concerns Assessment Noted Time PHQ-9 Depression Total Score: 12 06/12/2017 1:02 PM CS T documented as of this encounter Care Teams Bunk Assembler Relationship Specialty Start Date End Date Vanda Guerrero MD PCP - General Internal Medicine 04/08/15 01/08/19 [address] [facility] [address] [place], [place] [phone] Vanda Guerrero MD PCP - Assigned PCP 07/24/16 06/15/18 [address] [facility] [place] [address] documented as of this encounter
--- OUTSIDE RECORDS SUMMARY | 2022-02-06 10:15 | XMS_ITS | Encounter Summary ---
:1965 Author Organization [place] Address [address] [place] [address] Care Team Providers Name Role Phone Vanda Guerrero MD Primary Care Provider [phone] Vanda Guerrero MD Unavailable Reason for Visit Reason Onset Date Comments Refill Request 02/15/2018 methocarbamol (ROBAX IN) 500 MG tablet Encounter Details Date Type Department Care Team Description 02/15/2018 Refill [facility] Vanda Guerrero R efill Request Clinic Pino SALDANA (methocarbamol [address] [address] [facility] 500 [address] [facility] [address] tablet) [address] [place] [address] [place] [phone] Social History Tobacco Use Types Packs/Day Years [...] How often do you attend yarsanism or religion Patient refused 08/08/2019 services? Do [...] review/approval because: Drug not on the [facility] refill protocol Telephone Encounter [...] as of this encounter Care Teams Human Relations Professor Relationship Specialty Start Date End Date Vanda Guerrero MD PCP - General Internal Medicine 04/08/15 01/08/[address] [place] [address] [place] [address] Vanda Guerrero MD PCP - Assigned PCP 07/24/16 06/15/[address] [place] [address] [place] [address] documented as of this encounter
--- OUTSIDE RECORDS SUMMARY | 2022-02-06 10:15 | XMS_ITS | Encounter Summary ---
:1965 Author Organization [place] Address [address] [place] [address] Care Team Providers Name Role Phone Vanda Guerrero MD Primary Care Provider [phone] Vanda Guerrero MD Unavailable Reason for Referral [facility] - Closed Specialty Diagnoses / Procedures Referred By Contact Refer red To Contact Diagnoses Rosalia Pagan APRN CNP [facility] [address] [place] [address] Referral ID Status Reason Start Date Expiration Date Visits Requ ested Visits Authorized [id number] Closed 06/27/2017 06/27/2018 1 1 R AND RECOVERY SUPERVISOR Diagnostic Imaging MRI - Closed Specialty Diagnoses / Procedures Referred By Contact Refer red To Contact Radiology. Diagnoses Rosalia Pagan APRN Mri Procedures MR Cervical Spine w/o Contrast [facility] [address] [facility] [place], [place] [address] [address] [place] [address] Referral ID Status Reason Start Date Expiration Date Visits Requ ested Visits Authorized [id number] Closed 06/27/2017 06/27/2018 1 1 R AND RECOVERY SUPERVISOR Diagnostic Imaging XR - Closed Specialty Diagnoses / Procedures Referred By Contact Refer red To Contact Diagnoses Cervicalgia Rosalia Main APRN Procedures XR Cervical Spine 2/3 Views [facility] [address] [place] [address] Referral ID Status Reason Start Date Expiration Date Visits Requ ested Visits Authorized [id number] Closed 06/27/2017 06/27/2018 1 1 R AND RECOVERY SUPERVISOR Reason for Visit Reason Comments Neurologic Problem DDD, Cervical radiates down the right side into the right shoulder more than left down to the e lbow, patient has hand numbness and tingling at times weakness, has had previous surgery with Dr. Brandt in 2000 Encounter Details Date Type Department Care Team Description 06/27/2017 Office Visit [facility] Rosalia Main Cervical bola (Primary [facility] Neurosurgery SEAN [place] CN P Dx) [facility] ORTHOPEDIC [address] [facility] [address] [place] [address] [phone] Social History Tobacco Use Types Packs/Day Years [...] Comments Blood Pressure 124/77 06/27/2017 10:03 AM POWER AND RECOVERY SUPERVISOR Pulse 83 06/27/2017 10:03 AM POWER AND RECOVERY SUPERVISOR Temperature - - Respiratory Rate - - Oxygen Saturation 97% 06/27/2017 10:03 AM POWER AND RECOVERY SUPERVISOR Inhaled Oxygen Concentration - - Weight 90.7 kg (200 lb) 06/27/2017 10:03 AM POWER AND RECOVERY SUPERVISOR Height 157.5 cm (5' 2) 06/27/2017 10:03 AM POWER AND RECOVERY SUPERVISOR Body Mass Index 36.58 06/27/2017 10:03 AM POWER AND RECOVERY SUPERVISOR documented in this encounter Patient Instructions Patient InstructionsSchmidtRosalia APRN FISHING HAND - 06/27/2017 10:00 AM POWER AND RECOVERY SUPERVISOR 1. Please call [facility] to have cervical MRI completed. Call [phone]. I will contact you with results. 2. Cervical xray today 3. Please schedule your critical care nurse specialist with [facility] R AND RECOVERY SUPERVISOR documented in this encounter Progress Notes Rosalia Main APRN CNP - 06/27/2017 10:[address] Raoul Danielson [facility] Neurosurgery Clinic Visit CC: neck and arm pain Primary care Provider: Vanda Guerrero Reason For Visit: I was asked by Dr. Guerrero to consult on the patient for cervical radicular pain. HPI: Megan Choi is a 52 year old female with cervical radicular pain. She notes that she hadC5-7 fusion in [facility] at [facility]. We are in the process of obtaining [...] TOUCH DELICA) lancets ??? cholecalciferol (VITAMIN D3) 16747 UNITS capsule ??? order for DME ??? [...] ??? Cardiovascular Mother MO age 72 ??? DIABETES Mother Type II ??? Hypertension Mother ??? Lipids Mother ??? Arthritis Mother OA ??? KIDNEY DISEASE Mother 70 ??? Cardiovascular Father MO early [...] notes that she hadC5-7fusion in 2000 at [facility]. We are in the process of obtaining [...] to this. We will have her try critical care nurse specialist as well through [facility]. She is open to this. Patient Instructions 1. Please call [facility] Rad[facility] to have cervical MRI completed. Call [phone]. I will contact you with results. 2. Cervical xray today 3. Please schedule your critical care nurse specialist with [facility] C[facility] [address] [place] [address] Pager [phone] R AND RECOVERY SUPERVISOR documented in this encounter Plan of Treatment Scheduled Referrals Name Type Priority Associated Diagnoses Order S chedule [facility] PT, HAND, AND Referral Routine Cervicalgia Ordered: 0 06/27/2017 CHIROPRACTIC REFERRAL documented as of this encounter Results MR Cervical Spine w/o Contrast (06/28/2017 1:36 PM POWER AND RECOVERY SUPERVISOR) Anatomical Region Laterality Modality Spine, SUBRAD MR NEURO, UMP MR SPINE, RAD MR Magnetic Resonance Specimen (Source) Anatomical Location Collection Method / Collectio n Time Received Time / Laterality Volume Impressions 06/28/2017 2:37 PM POWER AND RECOVERY SUPERVISOR IMPRESSION: ?? 1. Anterior fusion at C5-C6 [...] MILAGROS JC MD Narrative 06/28/2017 2:37 PM POWER AND RECOVERY SUPERVISOR MRI CERVICAL SPINE WITHOUT CONTRAST June 28, [...] level. MILAGROS JC MD Rosalia Main APRN FISHING HAND IMG MRI ORDERABLES XR Cervical Spine 2/3 Views (06/27/2017 10:30 AM POWER AND RECOVERY SUPERVISOR) Anatomical Region Laterality Modality Spine Computed Radiography Specimen (Source) Anatomical Location Collection Method / Collectio n Time Received Time / Laterality Volume Impressions 06/27/2017 4:33 PM POWER AND RECOVERY SUPERVISOR IMPRESSION: Flexion and extension lateral views only. 1 mm anterolisthesis C2 on C3 and C4 on C5. T hese levels reduce with extension. Anterior interbody fusion C5- C7 appears solid with normal alignment. Degenerative disc space narro wing C3-4. No acute bony or soft tissue abnormality in the lateral v iew. ROHAN PINK MD Narrative 06/27/2017 4:33 PM POWER AND RECOVERY SUPERVISOR CERVICAL SPINE TWO - THREE VIEWS 06/27/2017 [...] iew. ROHAN PINK MD Rosalia Karthik Main HOUSING MANAGEMENT OFFICER FISHING HAND IMG DIAGNOSTIC IMAGING DAMASO MIRAMONTES documented in this encounter Visit Diagnoses Diagnosis Cervicalgia - Primary Cervicalgia Cervicalgia documented in this encounter Additional Health Concerns Assessment Noted Time PHQ-9 Depression Total Score: 12 06/12/2017 1:02 PM CS T documented as of this encounter Care Teams Rental Car Deliverer Relationship Specialty Start Date End Date Vanda Guerrero MD PCP - General Internal Medicine 04/08/15 01/08/19 [address] [facility] [place] [address] Vanda Guerrero MD PCP - Assigned PCP 07/24/16 06/15/18 [address] [facility] [place] [address] documented as of this encounter
--- OUTSIDE RECORDS SUMMARY | 2022-02-06 10:15 | XMS_ITS | Encounter Summary ---
:1965 Author Organization [facility] Address [address] [place] [address] Care Team Providers Name Role Phone Vanda Guerrero MD Primary Care Provider [phone] Vanda Guerrero MD Unavailable Reason for Visit Reason Onset Date Comments Procedure 06/29/2017 cervical facets vs. FABIAN Encounter Details Date Type Department Care Team Description 06/29/2017 Telephone [facility] Procedu re (cervical Pain Management Program, [place] facets vs. FABIAN) [address] [place] [address] Social History Tobacco Use Types [...] How often do you attend alevism or jew Patient refused 08/08/2019 services? Do you belong to any clubs or organizations such as [employer] 08/08/2019 alevism groups, unions, fraternal or athletic [...] site? [facility] Procedure ordered by Rosalia Main Procedure ordered? [...] YES, do NOT schedule and route to timber hewer Is an space systems operations manager needed? No Patient has a drive home? (mandatory) YES: Is patient taking any blood thinners (plavix, coumadin, jantoven, warfarin, heparin, pradaxa or dabigatran )? No If hold needed, do NOT schedule, route to timber hewer Is patient taking any aspirin products? Yes - Pt takes 81 mg daily; instructed to hold 6 day(s) prior to procedure. ?? If more than 325mg/day do NOT schedule; route to timber hewer ?? For CERVICAL procedures, hold all aspirin [...] YES, do NOT schedule and route to timber hewer Are you able to get on and off an exam table with minimal or no assistance? Yes If NO, do NOT schedule and route to timber hewer Are you able to roll over and lay on your stomach with minimal or no assistance? Yes If NO, do NOT schedule and route to timber hewer Any allergies to contrast dye, iodine, shellfish, or numbing and steroid medications? No If YES, route to timber hewer AND add allergy information to appointment notes [...] years? Yes ?? Was MRI done at [facility]? Yes ?? If not, where was it done? N/A ?? If MRI was not done at [facility], [facility] or [facility] do NOT schedule and route to [...] the patient have any questions? RAJENDRA Guevara [facility] NTORY CONTROL MANAGER documented in this encounter Plan of Treatment Not on filedocumented as of this encounter Visit Diagnoses Not on filedocumented in this encounter Additional Health Concerns Assessment Noted Time PHQ-9 Depression Total Score: 12 06/12/2017 1:02 PM CS T documented as of this encounter Care Teams Thread Checker Relationship Specialty Start Date End Date Vanda Guerrero MD PCP - General Internal Medicine 04/08/15 01/08/19 [address] [facility] [place] [address] Vanda Guerrero MD PCP - Assigned PCP 07/24/16 06/15/18 [address] [facility] [place] [address] documented as of this encounter
--- OUTSIDE RECORDS SUMMARY | 2022-02-06 10:15 | XMS_ITS | Encounter Summary ---
:1965 Author Organization [place] Address [address] [place] [address]. [place] [address] Care Team Providers Name Role Phone Vanda Guerrero MD Primary Care Provider [phone] Vanda Guerrero MD Unavailable Reason for Visit Reason Comments Consult mole/brown spot on shoulder, it is sore, crusted and now has been sensitive. Has had for a long time, and has been changing over the last 6-8 months Encounter Details Date Type Department Care Team Description 08/21/2017 Office Visit [facility] Vanda Fuentes of uncertain behavior of skin (Primary Dx); Clinic Pino Donnelly MD Solar lentiginosis [address] [facility] [address] [place] [address] [place] [address] [phone] Social History Tobacco Use Types Packs/Day Years [...] How often do you attend yazidi or advent Patient refused 08/08/2019 services? Do [...] as of this encounter Progress Notes Vanda Funetes MD - 08/21/2017 11:45 AM CDT Images [...] disease) ??? Obesity ??? Family history of NE (myocardial infarction) ??? Insomnia ??? Upper back [...] TOUCH DELICA) lancets ??? cholecalciferol (VITAMIN D3) 12042 UNITS capsule ??? order for DME ??? 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 Smoking status: [...] Component Value Ref Test Analysis Performed At [facility] [employer] Range Method Time Signature Copath Report Patient Name: PADMINI CHOI MR#: [id number] Specimen #: [id number] Collected: 08/21/2017 Received: 08/22/2017 Reported: 08/24/2017 15:20 [...] Electronically signed out by: Larry Andrea M.D., [facility] CLINICAL HISTORY: The patient is a [...] the deep mar gin. CPT Codes: A: 13043-PM9.T, 77263-MZ7.P TESTING LAB LOCATION: [facility], [address] ?? 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
--- OUTSIDE RECORDS SUMMARY | 2022-02-06 10:15 | XMS_ITS | Encounter Summary ---
:1965 Author Organization [place] Address [address] [place] [address] Care Team Providers Name Role Phone Vanda Guerrero MD Primary Care Provider [phone] Vanda Guerrero MD Unavailable Reason for Visit Reason Comments Medication Refill [facility] 24 HOUR 10- 240 MG per 24 hr tablet Encounter Details Date Type Department Care Team Description 08/01/2017 Refill [facility] Vanda Guerrero M edication Refill ([facility] SALDANA LORATADINE-D 24 HOUR [address] [place] [address] [facility] 10-24 0 MG per 24 hr [facility] [address] tablet) [address] [place] [address] [place] [id number] [phone] Social History Tobacco Use Types Packs/Day Years [...] How often do you attend gnosticism or anglican Patient refused 08/08/2019 services? Do [...] - Lori Weber - 08/06/2017 3:54 PM PROPERTY APPRAISER Faxed RX to patients pharmacy. Lori Weber MA ERTY APPRAISER Telephone Encounter - Vanda Guerrero MD - 08/06/2017 2:15 PM PROPERTY APPRAISER Script printed, signed, and in station out basket. R ERTY APPRAISER Telephone Encounter - Kirsten Casillas RN - 08/06/2017 1:44 PM CST Routing refill request to provider for review/approval because: Drug not on the [facility] refill protocol Kirsten Casillas, telesales professional Nurse ERTY APPRAISER Telephone Encounter - Marisa Matthew - 08/01/2017 1:28 PM CST [facility] 24 HOUR 10-240 MG per 24 hr tablet Last Written Prescription Date: Last Fill Quantity: 90, # refills: 1 Last Office Visit: 06/12/2017 Future Office visit: Routing refill request to provider for review/approval because: Drug not on the [facility], P or [facility] refill protocol or controlled substance ERTY APPRAISER documented in this encounter Plan of Treatment Not on filedocumented as of this encounter Visit Diagnoses Diagnosis Chronic seasonal allergic rhinitis, unsp ecified trigger documented in this encounter Additional Health Concerns Assessment Noted Time PHQ-9 Depression Total Score: 12 06/12/2017 1:02 PM CS T documented as of this encounter Care Teams Paper Tube Machine Operator Relationship Specialty Start Date End Date Vanda Guerrero MD PCP - General Internal Medicine 04/08/15 01/08/[address] [place] [address] [place] [address] Vanda Guerrero MD PCP - Assigned PCP 07/24/16 06/15/[address] [place] [address] [place] [id number] documented as of this encounter
--- OUTSIDE RECORDS SUMMARY | 2022-02-06 10:15 | XMS_ITS | Encounter Summary ---
:1965 Author Organization Center Address [facility] [place] [address] Care Team Providers Name Role Phone Vnada Guerrero MD Primary Care Provider [phone] Vanda Guerrero MD Unavailable JeanaNoreen girard RFID DEVELOPER WINDOWS APPLICATION ADMINISTRATOR Unavailable [phone] JeanaNoreen girard RFID DEVELOPER WINDOWS APPLICATION ADMINISTRATOR Unavailable [phone] JeanaNoreen girard RFID DEVELOPER WINDOWS APPLICATION ADMINISTRATOR Primary Care Provider [phone] Kalyan Galvan Unavailable Unavailable Lashae Trevino [facility] Unavailable [phone] Eduardo Sharma MD Unavailable Rios Monteiro MD Unavailable Marcelo Artis-C Unavailable [phone] Rodrigo Man-C Unavailable [phone] Reason for Visit Reason Onset Date Comments Patient/info Update 07/18/2017 post C7-T1 interlami brown epidural steroid injection Encounter Details Date Type Department Care Team Description 07/18/2017 Telephone [facility] Jim Wang Patient/info Update Management Taylor Taylor MD (post C7-T1 [address] [facility] interlaminar epidural [address] [place] [address] steroid injection ) [place] [address] [phone] Social History Tobacco Use Types Packs/Day Years [...] How often do you attend synagogue or restoration Patient refused 08/08/2019 services? Do [...] pt should call the nurse line at [phone]. 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 documented in this encounter Plan of Treatment Not on filedocumented as of this encounter Visit Diagnoses Not on filedocumented in this encounter Additional Health Concerns Infection Onset Date Last Indicated Resolved Time Rule Out COVID-08/25/2020 08/25/2020 08/26/2020 3:2 3 PM CDT Assessment Noted Time PHQ-9 Depression Total Score: 12 06/12/2017 1:02 PM CS T documented as of this encounter Care Teams Ruby Rails Developer Relationship Specialty Start Date End Date Vanda Guerrero, PCP - General Internal Medicine 04/08/15 [facility] [place] [address] Vanda Guerrero, PCP - Assigned PCP 07/24/16 06/15/18 MD Vargas [facility] [place] [address] [place] PCP - Assigned PCP 06/16/18 08/13/18 SEAN Haley CNP [facility] [place] [address] [place] [place] PCP - General Nurse Practitioner 01/09/19 12/12/21 SEAN Haley WINDOWS APPLICATION ADMINISTRATOR [address] [facility] [place] [address] [place] [place] Assigned PCP 06/16/18 SEAN Haley WINDOWS APPLICATION ADMINISTRATOR [address] [facility] [place] [address] Kalyan Galvan Personal Advocate & 08/08/19 Liaison (PAL) Lashae Trevino Pharmacist Pharmacist 10/14/19 12/01/20 [facility] [address] [place], [place] [id number] Eduardo Sharma MD Assigned Sleep Provider 04/02/20 05/07/21 [address] [place] [id number] Rios Monteiro MD Assigned Musculoskeletal 04/02/20 08/24/[address] Provider [address] [place], [place] [address] Marcelo Artis Assigned Musculoskeletal 08/25/20 08/20/21 MIKAYLA Nuno Provider [address] [place], [place] [address] Rodrigo Man Assigned Surgical 08/25/2011/27 MIKAYLA Lacy Provider [address] [place] [id number] documented as of this encounter
--- OUTSIDE RECORDS SUMMARY | 2022-02-06 10:15 | XMS_ITS | Encounter Summary ---
:1965 Author Organization [place] Address [address] [place] [address] Care Team Providers Name Role Phone Vanda Guerrero MD Primary Care Provider [phone] Vanda Guerrero MD Unavailable Reason for Visit Reason Comments Medication Refill omeprazole (PRILOSEC) 20 MG CR capsule Encounter Details Date Type Department Care Team Description 10/31/2017 Refill [facility] Vanda Guerrero M edication Refill Clinic Pino SALDANA (omeprazole (PRILOSEC) [address] [place] [address] [facility] 20 MG CR capsule) [facility] [address] [place] [address] [place] [address] [phone] Social History Tobacco Use Types Packs/Day Years [...] often do you attend jehovah's witness or yazdanism Patient refused 08/08/2019 services? Do [...] 10/31/2017 9:08 AM CDT Prescription approved per [facility] Refill Protocol. Telephone Encounter - Marisa Matthew [...] as of this encounter Care Teams Forming Machine Upkeep Mechanic Relationship Specialty Start Date End Date Vanda Guerrero MD PCP - General Internal Medicine 04/08/15 01/08/19 [address] [facility] [place] [address] Vanda Guerrero MD PCP - Assigned PCP 07/24/16 06/15/18 [address] [facility] [place] [address] documented as of this encounter
--- OUTSIDE RECORDS SUMMARY | 2022-02-06 10:16 | XMS_ITS | Encounter Summary ---
:1965 Author Organization [place] Address [address] [place] [address] Care Team Providers Name Role Phone Vanda Guerrero MD Primary Care Provider [phone] Vanda Guerrero MD Unavailable Reason for Visit Reason Onset Date Comments Refill Request 11/29/2016 not needed - choleca lciferol (VITAMIN D3) 55299 UNITS capsule Encounter Details Date Type Department Care Team Description 11/29/2016 Refill [facility] Vanda Guerrero Refill Request (not needed Clinic Pino Toribio MD - cholecalciferol (VITAMIN [address] [place] [address] [place] D3) 5 0000 UNITS capsule) [facility] [address] [place] [address] [place] [id number] [phone] Social History Tobacco Use Types Packs/Day Years [...] How often do you attend mandaen or sabianist Patient refused 08/08/2019 services? Do [...] the patient. I will also send a GOOM message. Telephone Encounter - Marisa Matthwe - 11/29/2016 4:03 PM CDT cholecalciferol (VITAMIN D3) 73948 UNITS capsule Last Written Prescription Date: 09/27/2016 Last Fill Quantity: 8, # refills: 0 Last Office Visit with [facility], P or [facility] prescribing provider: 09/25/2016 documented in this encounter Plan of Treatment Not on filedocumented as of this encounter Visit Diagnoses Diagnosis Vitamin D deficiency Unspecified vitamin D deficiency documented in this encounter Additional Health Concerns Assessment Noted Time PHQ-9 Depression Total Score: 9 10/12/2016 7:16 AM CDT documented as of this encounter Care Teams Multi Media Specialist Relationship Specialty Start Date End Date Vanda Guerrero MD PCP - General Internal Medicine 04/08/15 01/08/19 [address] [facility] [place] [address] Vanda Guerrero MD PCP - Assigned PCP 07/24/16 06/15/18 [address] [facility] [place] [address] documented as of this encounter
--- OUTSIDE RECORDS SUMMARY | 2022-02-06 10:16 | XMS_ITS | Encounter Summary ---
:1965 Author Organization [facility] Address [address] [place] [address] Care Team Providers Name Role Phone Vanda Guerrero MD Primary Care Provider [phone] Vanda Guerrero MD Unavailable Reason for Visit (Routine) - Closed Specialty Diagnoses / Procedures Referred By Contact Refer red To Contact Cardiology Diagnoses EPIC ORDER SB PT PREP INFORMED [facility] Electrocardiology Procedures EKG STRESS NM [place] [address] [place], [place] [address] Phone: Referral ID Status Reason Start Date Expiration Date Visits Requ ested Visits Authorized [id number] Closed 10/17/2016 10/17/2017 1 1 Encounter Details Date Type Department Care Team Description 10/17/2016 Hospital Encounter [facility] Vanda Watkins history of SD (myocardial infarction); Electrocardiolgy MD Catarino Atypical chest pain [address] [place], [place] [address] [place] [address] Social History Tobacco Use Types [...] organizations such as No 08/08/2019 yazidi groups, Examifys, fraternal or athletic groups, or school groups? [...] capsule 8 capsule 0 017 01/02/2019 D3) 44689 UNITS (50,000 Units) by capsuleIndications: mouth once [...] climacteric states times weekly fluticasone (FLONASE) 50 [place] 1-2 sprays 3 Bottle 3 05/0306/12/2017 MCG/ACT [...] Routine 10/17/2016 2:34 PM Family history of SD R esults for this LEXISCAN CDT (myocardial [...] encounter Visit Diagnoses Diagnosis Family history of SD (myocardial infarct ion) Family history of ischemic [...] documented as of this encounter Care Teams Jelly Maker Relationship Specialty Start Date End Date Vanda Guerrero MD PCP - General Internal Medicine 04/08/15 01/08/19 [address] [facility] [place] [id number] Vanda Guerrero MD PCP - Assigned PCP 07/24/16 06/15/18 3300 [facility] [place] [id number] documented as of this encounter
--- OUTSIDE RECORDS SUMMARY | 2022-02-06 10:16 | XMS_ITS | Encounter Summary ---
:1965 Author Organization [facility] Address [address] [place] [address] Care Team Providers Name Role Phone Vanda Guerrero MD Primary Care Provider [phone] Vanda Guerrero MD Unavailable Reason for Referral Consultation - Closed Specialty Diagnoses / Procedures Referred By Contact Refer red To Contact Diagnoses Multiple pigmented nevi Vanda Guerrero MD [facility], [address] [place] [address] [address] [place] [address] [place] [address] Fax: Referral ID Status Reason Start Date Expiration Date Visits Requ ested Visits Authorized [id number] Closed 06/12/2017 06/12/2018 1 1 N RESOURCE ANALYST Consultation - Closed Specialty Diagnoses / Procedures Referred By Contact Refer red To Contact Diagnoses Degenerative disc disease, cervical Vanda Guerrero MD [facility] [address] [place] [address] CL-RH- REFERRAL (OP) [address] [facility] [place] [address] [address] [place] [address] Phone: Fax: Referral ID Status Reason Start Date Expiration Date Visits Requ ested Visits Authorized [id number] Closed 06/12/2017 06/12/2018 1 1 N RESOURCE ANALYST Reason for Visit Reason Comments Diabetes Lipids Recheck Medication Encounter Details Date Type Department Care Team Description 06/12/[address] [facility] Vanda Guerrero ative disc disease, cervical (Primary Dx); Clinic Pino Toribio MD Moderate episode of recurrent major depr essive disorder (H); [address] [place] [address] [facility] Morbi d obesity (H); [facility] Type 2 diabetes mellitus without complic ation, without long-term current use of insulin (H); [address] [place] [address] Anxiety; [place] [address] Muscle spasm; [phone] Persisten t insomnia; Fibromyalgia; Multiple pigmen jayne [...] How often do you attend mormonism or yazidism Patient refused 08/08/2019 services? Do [...] Comments Blood Pressure 116/72 06/12/2017 12:11 PM HUMAN RESOURCE ANALYST Pulse 76 06/12/2017 12:11 PM HUMAN RESOURCE ANALYST Temperature 36.4 ??C (97.6 ??F) 06/12/2017 12:11 PM HUMAN RESOURCE ANALYST Respiratory Rate - - Oxygen Saturation 99% 06/12/2017 12:11 PM HUMAN RESOURCE ANALYST Inhaled Oxygen Concentration - - Weight 90.7 kg (200 lb) 06/12/2017 12:11 PM HUMAN RESOURCE ANALYST Height 157.5 cm (5' 2) 06/12/2017 12:11 PM HUMAN RESOURCE ANALYST Body Mass Index 36.58 06/12/2017 12:11 PM HUMAN RESOURCE ANALYST documented in this encounter Patient Instructions Patient InstructionsVanda Guerrero MD - 06/12/2017 12:00 PM CST Expect a call to set up a visit with the government affairs specialist. Increase your citalopram to 1.5 pills per day. Stop the zanaflex and start robaxin (methocarbamol) in its place for your muscle pain Repeat labs today Numbers below for dermatology visit for the spot on your left shoulder Trial of ambien for sleep - don't drive on this - think about trying a 1/2 tablet first N RESOURCE ANALYST documented in this encounter Progress Notes Vanda [...] or the safety of others? No PHQ-9 Greek PHQ-9 Any Language Suicide Assessment Five-step Evaluation [...] 1. Degenerative disc disease, cervical M50.30 ORTHO CNC CUTTING OPERATOR REFERRAL Recommended repeat evaluation for cervical spine [...] IM See Patient Instructions Vanda Guerrero MD [facility] N RESOURCE ANALYST documented in this encounter Nursing Notes Lori [...] 200 lb (90.7 kg). Medication Reconciliation: complete N RESOURCE ANALYST documented in this encounter Plan of Treatment Pending Results Name Type Priority Associated Diagnoses Date/Ti me ORTHO CNC CUTTING OPERATOR REFERRAL Referral Routine Degenerative dis c disease, 06/13/2017 cervical Scheduled Referrals Name Type Priority Associated Diagnoses Order S chedule DERMATOLOGY REFERRAL Referral Routine Multiple pigmented n missy Ordered: 06/12/2017 documented as of this encounter Procedures Procedure Name Priority Date/Time Associated Comments Diagnosis VITAMIN D DEFICIENCY Routine 06/12/2017 12:55 Fatigue, Res ults for this SCREENING PM HUMAN RESOURCE ANALYST unspecified type procedure a re in the results section. HEMOGLOBIN A1C Routine 06/12/2017 12:55 Type 2 diabetes Result s for this PM HUMAN RESOURCE ANALYST mellitus without procedure a re in complication, the results without long-term section. current use of insulin (H) Morbid obesity (H) COMPREHENSIVE Routine 06/12/2017 12:55 Type 2 diabetes Results for this METABOLIC PANEL PM HUMAN RESOURCE ANALYST mellitus without procedur e are in complication, the results without long-term section. current use of insulin (H) Morbid obesity (H) documented in this encounter Results Vitamin D Deficiency (06/12/2017 12:55 PM HUMAN RESOURCE ANALYST) P athologist Signature Vitamin D 35 20 - 75 06/13/2017 [facility] Deficiency ug/L 11:48 AM HUMAN RESOURCE ANALYST [facility] Comment: Season, race, dietary intake, and treatm ent affect the concentration of 24-wrpcgak-Angyabw D. Values may decreas e during winter [...] Blood specimen 06/12/2017 12:55 8 (specimen) PM HUMAN RESOURCE ANALYST 12:56 PM HUMAN RESOURCE ANALYST Vanda Guerrero MD LAB - BLOOD ORDERABLES Performing Organization Address City/State/ZIP Code Phon e Number [address] [address] [facility] (ABNORMAL) Hemoglobin A1c (06/12/2017 12:55 PM HUMAN RESOURCE ANALYST) athologist Signature Hemoglobin A1C 6.7 (H) 4.3 - 6.0 06/12/2017 [place] % 1:47 PM HUMAN RESOURCE ANALYST [facility] Specimen Anatomical Collection Method Collection Time Receive d Time (Source) Location / / Volume Laterality Blood specimen 06/12/2017 12:55 8 (specimen) PM HUMAN RESOURCE ANALYST 12:56 PM HUMAN RESOURCE ANALYST Vanda Guerrero MD LAB - BLOOD ORDERABLES Performing Organization Address City/State/ZIP Code Phon e Number [address] [address] (ABNORMAL) Comprehensive metabolic panel (06/12/2017 12:55 PM HUMAN RESOURCE ANALYST) [facility] gist Method Time Signature Sodium 147 (H) 133 - 144 06/13/2017 [facility] mmol/L 8:14 AM [facility] Potassium 4.5 3.4 - 5.3 06/13/2017 [facility] mmol/L 8:14 AM [facility] Chloride 112 (H) 94 - 109 06/13/2017 [facility] mmol/L 8:14 AM [facility] Carbon Dioxide 30 20 - 32 06/13/2017 [facility] mmol/L 8:14 AM [facility] Anion Gap 5 3 - 14 06/13/2017 [facility] mmol/L 8:14 AM [facility] Glucose 125 (H) 70 - 99 06/13/2017 [place] mg/dL 8:14 AM [facility] Urea Nitrogen 11 7 - 30 06/13/2017 [place] mg/dL 8:14 AM [facility] Creatinine 0.70 0.52 - 06/13/2017 [place] 1.04 mg/dL 8:14 AM [facility] GFR Estimate 87 >60 06/13/2017 [place] mL/min/1.7 8:14 AM [facility] m2 [facility] Comment: Non GFR Calc GFR Estimate If >90 >60 mL/min/1.7m2 06/13/2017 8:14 A M [facility] Black [facility] Comment: GFR Calc Calcium 9.2 8.5 - 10.1 06/13/2017 8:14 AM [facility] mg/dL [facility] Bilirubin Total 0.2 0.2 - 1.3 06/13/2017 8:14 AM [facility] IEW [facility] mg/dL [facility] Albumin 3.6 3.4 - 5.0 g/dL 06/13/2017 8:14 AM [facility] EW [facility] Protein Total 7.4 6.8 - 8.8 g/dL 06/13/2017 8:14 AM [facility] Alkaline Phosphatase 194 (H) 40 - 150 U/L 06/13/2017 8:14 AM [facility] ALT 31 0 - 50 U/L 06/13/2017 8:14 AM [place] [facility] AST 25 0 - 45 U/L 06/13/2017 8:14 AM [facility] Specimen Anatomical Collection Method Collection Time Receive d Time (Source) Location / / Volume Laterality Blood specimen 06/12/2017 12:55 8 (specimen) PM HUMAN RESOURCE ANALYST 12:56 PM HUMAN RESOURCE ANALYST Vanda Guerrero MD LAB - BLOOD ORDERABLES Performing Organization Address City/State/ZIP Code Phon e Number [facility] [address] [place] [address] documented in this encounter Visit Diagnoses Diagnosis [...] documented as of this encounter Care Teams School Services Officer Relationship Specialty Start Date End Date Vanda Guerrero MD PCP - General Internal Medicine 04/08/15 01/08/19 [address] [facility] [place] [phone] Vanda Guerrero MD PCP - Assigned PCP 07/24/16 06/15/18 [address] [facility] [place] [address] documented as of this encounter
--- OUTSIDE RECORDS SUMMARY | 2022-02-06 10:16 | XMS_ITS | Encounter Summary ---
:1965 Author Organization [place] Address [address] [place] [address] Care Team Providers Name Role Phone Vanda Guerrero MD Primary Care Provider [phone] Vanda Guerrero MD Unavailable Reason for Visit (Routine) - Closed Specialty Diagnoses / Procedures Referred By Contact Refer red To Contact Radiology / Radiology. Diagnoses Epic order, sb pt [place] [address] [place] [address] Phone: Fax: Referral ID Status Reason Start Date Expiration Date Visits Requ ested Visits Authorized [id number] Closed 12/25/2016 12/22/2017 1 1 Encounter Details Date Type Department Care Team Description 12/25/2016 Hospital Encounter [facility] Agatha Null, Marcos eft foot pain; [facility] DPM, Acute left ankle pain; [address] [facility]Foot and Type 2 d iabetes mellitus without complication, without long-term current use of insulin (H); Drive [address] Ankle Surgery Edema of [place] [address] [place] [address] [facility] [address] [place] [address] Social History Tobacco Use Types [...] How often do you attend rastafari or tenriism Patient refused 08/08/2019 services? Do [...] capsule 8 capsule 0 017 01/02/2019 D3) 16201 UNITS (50,000 Units) by capsuleIndications: mouth once [...] or female climacteric states fluticasone (FLONASE) 50 [place] 1-2 sprays 3 Bottle 3 05/0306/12/2017 MCG/ACT [...] as of this encounter Care Teams Second Hand Paper Machine Relationship Specialty Start Date End Date Vanda Guerrero MD PCP - General Internal Medicine 04/08/15 01/08/19 [address] [facility] [place] [address] Vanda Guerrero MD PCP - Assigned PCP 07/24/16 06/15/18 [address] [facility] [place] [address] documented as of this encounter
--- OUTSIDE RECORDS SUMMARY | 2022-02-06 10:16 | XMS_ITS | Encounter Summary ---
:1965 Author Organization [place] Address [address] [place] [address] Care Team Providers Name Role Phone Vanda Guerrero MD Primary Care Provider [phone] Vanda Guerrero MD Unavailable JeanaNoreen girard FLAME ANNEALING MACHINE OPERATOR LABORATORY [facility]ER Unavailable [phone] JeanaNoreen girard FLAME ANNEALING MACHINE OPERATOR LABORATORY MILLER Unavailable [phone] JeanaNoreen girard FLAME ANNEALING MACHINE OPERATOR LABORATORY MILLER Primary Care Provider Kalyan Galvan Unavailable Unavailable Lashae Trevino [facility] Unavailable [phone] Eduardo Sharma MD Unavailable Rios Monteiro MD Unavailable Marcelo Artis-C Unavailable [phone] Rodrigo ManC Unavailable Reason for Visit Reason Comments Medication Refill simvastatin (ZOCOR) 20 MG ta blet Encounter Details Date Type Department Care Team Description 02/15/2017 Refill [facility] Vanda Guerrero M edication Refill Clinic Pino SALDANA (simvastatin (ZOCOR) 20 [address] [place] [address] [facility] MG ta blet) [facility] [address] [place] [address] [place] [address] [phone] Social History Tobacco Use Types Packs/Day Years [...] How often do you attend voodoo or pentecostal Patient refused 08/08/2019 services? Do [...] # refills: 3 Last Office Visit with [facility] or [facility] prescribing provider: 09/25/2016 Lab Results Component [...] athologist Signature Cholesterol 178 <200 mg/dL 02/17/2017 [facility] 2:14 PM CDT [facility] Triglycerides 121 <150 mg/dL 02/17/2017 [facility] CS 2:14 PM T [facility] Comment: Fasting specimen HDL Cholesterol 43 (L) >49 mg/dL 02/17/2017 2:14 PM [facility] LDL Cholesterol 111 (H) <100 mg/dL 02/17/2017 2:14 PM [facility] Calculated CDT [facility] Comment: Above desirable: ??100-129 mg/dl Borderline High: ??130-159 mg/dL High: ? 160-189 mg/dL Very high: ? >189 mg/dl Non HDL Cholesterol 135 (H) <130 mg/dL 02/17/2017 2:14 PM [facility] Comment: Above Desirable: ??130-159 mg/dl Borderline high: ??160-189 mg/dl High: ? 190-219 mg/dl Very high: ? >219 mg/dl Specimen Anatomical Collection Method Collection Time Receive d Time (Source) Location / / Volume Laterality Blood specimen 02/17/2017 9:13 AM 017 9:18 (specimen) CDT AM CDT Vanda Guerrero MD LAB - BLOOD ORDERABLES Performing Organization Address City/State/ZIP Code Phon e Number [facility] [address] [place] [address] documented in this encounter Visit Diagnoses Diagnosis Hyperlipidemia LDL goal <100 Other and unspecified hyperlipidemia documented in this encounter Additional Health Concerns Infection Onset Date Last Indicated Resolved Time Rule Out COVID-19 08/25/2020 08/25/2020 08/26/2020 3:2 3 PM CDT Assessment Noted Time PHQ-9 Depression Total Score: 9 10/12/2016 7:16 AM CDT documented as of this encounter Care Teams Leather Cartridge Belt Maker Relationship Specialty Start Date End Date Vanda Guerrero, PCP - General Internal Medicine 04/08/15 01/08/19 [address] [facility] [place] [address] Vanda Guerrero, PCP - Assigned PCP 07/24/16 06/15/18 [address] [facility] [place] [address] [place] PCP - Assigned PCP 06/16/18 08/13/18 SEAN Haley LABORATORY MILLER [facility] [place] [address] Noreen Hills PCP - General Nurse Practitioner 01/09/19 12/12/21 SEAN Haley LABORATORY MILLER [address] [facility] [address] [place] [phone] Noreen Hills Assigned PCP 06/16/18 SEAN Haley LABORATORY MILLER [address] [place] [address] [place] [phone] Kalyan Galvan Personal Advocate & 08/08/19 Liaison (PAL) Lashae Trevino Pharmacist Pharmacist 10/14/19 12/01/20 [facility] [address] [facility] [address] [place], [place] [id number] Eduardo Sharma MD Assigned Sleep Provider 04/02/20 05/07/21 [address] [place] [id number] Rios Monteiro MD Assigned Musculoskeletal 04/02/20 08/24/[address] Provider [address] [place], [place] [address] Marcelo Artis Assigned Musculoskeletal 08/25/20 08/20/21 MIKAYLA Nuno Provider [address] [place] [address] Rodrigo Man Assigned Surgical 08/25/2011/27 MIKAYLA Lacy Provider [address] [place] [address] documented as of this encounter
--- OUTSIDE RECORDS SUMMARY | 2022-02-06 10:16 | XMS_ITS | Encounter Summary ---
:1965 Author Organization [place] Address [address] [place] [address] Care Team Providers Name Role Phone Vanda Guerrero MD Primary Care Provider [phone] Vanda Guerrero MD Unavailable Reason for Visit Reason Onset Date Comments Refill Request 12/10/2016 tiZANidine (ZANAFLEX ) 4 MG tablet Encounter Details Date Type Department Care Team Description 12/10/2016 Refill [facility] Vanda Guerrero R efill Request Clinic Pino SALDANA (tiZANidine (ZANAFLEX) [address] [facility] 4 MG tablet) [facility] [address] [place] [address] [place] [address] [phone] Social History Tobacco Use Types Packs/Day Years [...] How often do you attend gnosticism or druze Patient refused 08/08/2019 services? Do [...] Agatha Null DPM, Podiatry/[facility] [address] [place] [phone] Routing refill request to provider for review/approval [...] as of this encounter Care Teams Fruit Or Nut Farm Worker Relationship Specialty Start Date End Date Vanda Guerrero MD PCP - General Internal Medicine 04/08/15 01/08/[address] [place] [address] [place] [address] Vanda Guerrero MD PCP - Assigned PCP 07/24/16 06/15/[address] [place] [address] [place] [address] documented as of this encounter
--- OUTSIDE RECORDS SUMMARY | 2022-02-06 10:16 | XMS_ITS | Encounter Summary ---
:1965 Author Organization [place] Address [address] [place] [address] Care Team Providers Name Role Phone Vanda Guerrero MD Primary Care Provider [phone] Vanda Guerrero MD Unavailable Reason for Visit Reason Comments Diabetes Education Encounter Details Date Type Department Care Team Description 11/14/2016 Allied Health/Nurse [facility] Diabetes Education Visit [address] [place] [address] Social History Tobacco Use Types [...] How often do you attend rastafari or congregational Patient refused 08/08/2019 services? Do [...] water, Diet [place] (trying to reduce) Cultural/congregational diet restrictions: No Biggest Challenge to Healthy [...] Understanding Diabetes Booklet, Carbohydrate Counting, My Plate Cleaning Machine Operator, Diabetes on a Budget Healthy Eating information [...] resources (magazines, books, etc.), Follow-up visit with frozen food selector and Follow-up with primary care provider Wilda Fernandez RD, CDE Diabetes System Safety Manager Time Spent: 60 minutes Encounter Type: Individual [...] documented as of this encounter Care Teams Depalletizer Operator Relationship Specialty Start Date End Date Vanda Guerrero MD PCP - General Internal Medicine 04/08/15 01/08/19 [address] [facility] [place] [address] Vanda Guerrero MD PCP - Assigned PCP 07/24/16 06/15/18 [address] [facility] [place] [address] documented as of this encounter
--- OUTSIDE RECORDS SUMMARY | 2022-02-06 10:16 | XMS_ITS | Encounter Summary ---
:1965 Author Organization [place] Address [address] [place] [address] Care Team Providers Name Role Phone Vanda Guerrero MD Primary Care Provider [phone] Vanda Guerrero MD Unavailable Reason for Visit Reason Onset Date Comments Prior Auth - Medication 11/07/2016 omeprazole (PRIL OSEC) 20 MG capsule Encounter Details Date Type Department Care Team Description 11/07/2016 Telephone [facility] Vanda Guerrero [facility] Pino Toribio MD Medication (omeprazole [address] [place] [address] [facility] (PRIL OSEC) 20 MG [facility] [address] capsule) [address] [place] [address] [place] [address] [phone] Social History Tobacco Use Types Packs/Day Years [...] approval, they will inform pt. Auth #: [id number] Lori Weber MA Telephone Encounter - Lori Weber - 11/07/2016 9:40 AM CDT Received notice from pharmacy that medication is not covered. Medication: omeprazole (PRILOSEC) 20 MG capsule Insurance phone # : [phone] BIN :[id number] PCN: BRYAN GROUPRX: [id number] documented in this encounter Plan of Treatment Not on filedocumented as of this encounter Visit Diagnoses Not on filedocumented in this encounter Additional Health Concerns Assessment Noted Time PHQ-9 Depression Total Score: 9 10/12/2016 7:16 AM CDT documented as of this encounter Care Teams Multiple Tube Winding Machine Operator Relationship Specialty Start Date End Date Vanda Guerrero MD PCP - General Internal Medicine 04/08/15 01/08/19 [address] [facility] [place] [address] Vanda Guerrero MD PCP - Assigned PCP 07/24/16 06/15/18 [address] [facility] [place] [address] documented as of this encounter
--- OUTSIDE RECORDS SUMMARY | 2022-02-06 10:16 | XMS_ITS | Encounter Summary ---
:1965 Author Organization [place] Address [address] [place] [address] Care Team Providers Name Role Phone Vanda Guerrero MD Primary Care Provider [phone] Vanda Guerrero MD Unavailable Reason for Visit (Routine) - Closed Specialty Diagnoses / Procedures Referred By Contact Refer red To Contact Radiology / Radiology. Diagnoses EPIC ORDER, sb [place] [address] [place] [address] [place] [address] Phone: Fax: Referral ID Status Reason Start Date Expiration Date Visits Requ ested Visits Authorized [id number] Closed 12/25/2016 12/22/2017 1 1 Encounter Details Date Type Department Care Team Description 12/25/2016 Hospital Encounter [facility] Agatha Null E leopoldo of left lower extremity; [facility] DPM, Left foot pain; [address] [place] [facility]/Foot and Acute le ft ankle pain; Drive [address] Ankle Surgery Type 2 diabetes mellitus without complic ation, without long-term current use of insulin (H) [place] [address] [place] [address] [facility] [address] [place] [address] Social History Tobacco Use Types [...] capsule 8 capsule 0 017 01/02/2019 D3) 70453 UNITS (50,000 Units) by capsuleIndications: mouth once [...] or female climacteric states fluticasone (FLONASE) 50 [place] 1-2 sprays 3 Bottle 3 05/0306/12/2017 MCG/ACT [...] documented as of this encounter Care Teams Check Processor Relationship Specialty Start Date End Date Vanda Guerrero MD PCP - General Internal Medicine 04/08/15 01/08/19 [address] [facility] [place] [address] Vanda Guerrero MD PCP - Assigned PCP 07/24/16 06/15/18 [address] [facility] [place] [address] documented as of this encounter
--- OUTSIDE RECORDS SUMMARY | 2022-02-06 10:16 | XMS_ITS | Encounter Summary ---
:1965 Author Organization [place] Address [address] [place] [address] Care Team Providers Name Role Phone Vanda Guerrero MD Primary Care Provider [phone] Vanda Guerrero MD Unavailable Reason for Visit Reason Comments Medication Refill tiZANidine (ZANAFLEX) 4 MG t ablet Encounter Details Date Type Department Care Team Description 05/05/2017 Refill [facility] Vanda Guerrero M edication Refill Clinic Pino SALDANA (tiZANidine (ZANAFLEX) [address] [place] 3305 [facility] 4 MG tablet) [facility] [address] [place] [address] [place] [address] [phone] Social History Tobacco Use Types Packs/Day Years [...] often do you attend latter day or jew Patient refused 08/08/2019 services? Do [...] on the [facility] refill protocol Kirsten Casillas, application development project manager Nurse ONAL EHS MANAGER Telephone Encounter - Efren Pryor - 05/06/2017 7:37 PM CST YOSELIN: 12/25/2016 ONAL EHS MANAGER documented in this encounter Plan of Treatment Not on filedocumented as of this encounter Visit Diagnoses Diagnosis Cervicalgia History of fusion of cervical spine Arthrodesis status History of lumbar fusion documented in this encounter Additional Health Concerns Assessment Noted Time PHQ-9 Depression Total Score: 9 10/12/2016 7:16 AM CDT documented as of this encounter Care Teams Setter Out Relationship Specialty Start Date End Date Vanda Guerrero MD PCP - General Internal Medicine 04/08/15 01/08/19 [address] [facility] [address] [place], DAVID [id number] Vanda Guerrero MD PCP - Assigned PCP 07/24/16 06/15/18 [address] [facility] [place] [address] documented as of this encounter
--- OUTSIDE RECORDS SUMMARY | 2022-02-06 10:16 | XMS_ITS | Encounter Summary ---
:1965 Author Organization [place] Address [address] [place] [address] Care Team Providers Name Role Phone Vanda Guerrero MD Primary Care Provider [phone] Vanda Guerrero MD Unavailable Reason for Visit Reason Comments Medication Refill omeprazole (PRILOSEC) 20 MG capsule Encounter Details Date Type Department Care Team Description 05/04/[address] [facility] Vanda Guerrero M edication Refill Clinic Pino SALDANA (omeprazole (PRILOSEC) [address] [place] [address] [facility] 20 MG capsule) [facility] [address] [place] [address] [place] [address] [phone] Social History Tobacco Use Types Packs/Day Years [...] approved through 10/2019. Refills sent. Kirsten Casillas, offset printing operator Nurse MOTIVE GENERATOR REPAIRER Telephone Encounter - Marisa Matthew - 05/04/2017 8:18 AM CST YOSELIN 09/25/2016 MOTIVE GENERATOR REPAIRER documented in this encounter Plan of Treatment Not on filedocumented as of this encounter Visit Diagnoses Diagnosis Gastroesophageal reflux disease without esophagitis Esophageal reflux documented in this encounter Additional Health Concerns Assessment Noted Time PHQ-9 Depression Total Score: 9 10/12/2016 7:16 AM CDT documented as of this encounter Care Teams Flight Deck Officer Relationship Specialty Start Date End Date Vanda Guerrero MD PCP - General Internal Medicine 04/08/15 01/08/[address] [place] [address] [place] [address] Vanda Guerrero MD PCP - Assigned PCP 07/24/16 06/15/[address] [place] [address] [place] [address] documented as of this encounter
--- OUTSIDE RECORDS SUMMARY | 2022-02-06 10:16 | XMS_ITS | Encounter Summary ---
:1965 Author Organization [place] Address [address] [place] [address] Care Team Providers Name Role Phone Vanda Guerrero MD Primary Care Provider [phone] Vanda Guerrero MD Unavailable Reason for Referral Specialty Diagnoses / Procedures Referred By Contact Refer red To Contact [facility] [address] [place] [address] [place] [id number] Referral ID Status Reason Start Date Expiration Date Visits Requ ested Visits Authorized Reason for Visit Reason Comments Medication Therapy Management Encounter Details Date Type Department Care Team Description 10/11/[address] [facility] Sandy Joe Fibrom yalgia (Primary Dx); Clinic Pino Jerez RPH Non morbid obesity, unspecified obesity type; [address] [place] [address] BENI ANDRE Type 2 diabetes mellitus without complic ation, without long-term current use of insulin (H); [address] [place] [address] Vitamin D deficiency; [address] Anxiety; DAV[place] Pringle (Work) Moderate episod e of recurrent major depressive disorder (H); [address] Gastroesophageal reflux dise ase without esophagitis; [phone] Hyperlipidemia LDL goal <100; Migraine withou t [...] How often do you attend presybeterian or moravian Patient refused 08/08/2019 services? Do [...] this encounter Patient Instructions Patient InstructionsSandy Joe, [facility] - 10/11/2016 2:30 PM CDT Recommendations from today's MTM visit: MTM (medication therapy management) is a service provided by a clinical pharmacist designed to help you get the most of out of your medicines. Vitamin D deficiency: After 50,000 IU aim for 2,000 IU of vitamin D (look in your multivitamin) Diabetes: Stop metformin. Meet with certified diabetes educator. Migraines: Change topiramate to 50mg twice daily. [...] may call the MTM scheduling line at [phone] or toll-free at . My Clinical Pharmacist's contact information: It was a pleasure seeing you today! Please feel free to contact me with any questions or concerns you have. Sandy Joe, Donald [facility] Medication Therapy Management Practitioner #[phone] You may receive a survey about the [...] Wants to decrease weight. Allergies/ADRs: Reviewed in Character Booster Tobacco: No tobacco use Alcohol: Less than [...] Weight gain: Needs improvement. Discussed meeting with family life counselor and continuing topiramate for now. Give consideration [...] your multivitamin) Diabetes: Stop metformin. Meet with certified diabetes educator, CDE referral placed. Migraines: Change topiramate to [...] Cost of services discussed before visit, see [facility] Acct. Note. All changes were made via collaborative practice agreement with Vanda Guerrero. A copy of the visit note was provided to the patient's primary care provider. The patient was given a summary of these recommendations as an after visit summary. Sandy Joe PharmD [facility] Medication Therapy Management Practitioner VM #[phone] documented in this encounter Plan of Treatment [...] as of this encounter Care Teams Financial Institution Treasurer Relationship Specialty Start Date End Date Vanda Guerrero MD PCP - General Internal Medicine 04/08/15 01/08/19 [address] [facility] [place] [address] Vanda Guerrero MD PCP - Assigned PCP 07/24/16 06/15/18 [address] [facility] [place] [address] documented as of this encounter
--- OUTSIDE RECORDS SUMMARY | 2022-02-06 10:16 | XMS_ITS | Encounter Summary ---
:1965 Author Organization [place] Address [address] [place] [address] Care Team Providers Name Role Phone Vanda Guerrero MD Primary Care Provider [phone] Vanda Guerrero MD Unavailable Reason for Visit Reason Comments Medication Refill [facility] LORAT[facility]INE[facility] 24 HOUR 10- 240 MG per 24 hr tablet Encounter Details Date Type Department Care Team Description 02/05/2017 Refill [facility] Vanda Guerrero M edication Refill ([facility] Pino SALDANA LORATADINE-D 24 HOUR [address] [place] 3305 [facility] 10-24 0 MG per 24 hr [facility] [address] tablet) [address] [place] [address] [place] [id number] [phone] Social History Tobacco Use Types Packs/Day Years [...] How often do you attend rastafari or samaritan Patient refused 08/08/2019 services? Do [...] CDT Info sent . Thea Gonzalez RN [facility] [phone] Telephone Encounter - Marisa Matthew - 02/05/2017 [...] documented as of this encounter Care Teams Color Repairer Relationship Specialty Start Date End Date Vanda Guerrero MD PCP - General Internal Medicine 04/08/15 01/08/[address] [place] [address] [place] [address] Vanda Guerrero MD PCP - Assigned PCP 07/24/16 06/15/[address] [place] [address] [place] [address] documented as of this encounter
--- OUTSIDE RECORDS SUMMARY | 2022-02-06 10:16 | XMS_ITS | Encounter Summary ---
:1965 Author Organization [place] Address [address] [place] [address] Care Team Providers Name Role Phone Vanda Guerrero MD Primary Care Provider [phone] Vanda Guerrero MD Unavailable Reason for Visit Reason Comments Medication Refill DULoxetine (CYMBALTA) 30 MG EC capsule Encounter Details Date Type Department Care Team Description 05/14/2017 Refill [facility] Vanda Guerrero M edication Refill Clinic Pino SALDANA (DULoxetine (CYMBALTA) [address] [place] 3305 [facility] 30 MG EC capsule) [facility] [address] [place] [address] [place] [address] [phone] Social History Tobacco Use Types Packs/Day Years [...] How often do you attend mandaeism or congregation Patient refused 08/08/2019 services? Do [...] in past 12 months Prescription approved per [facility] Refill Protocol. Kirsten Casillas, dye reel operator helper Nurse S PRODUCT MANAGER Telephone Encounter - Marisa Matthew - 05/14/2017 7:32 AM CST YO[place] 09/25/2016 S PRODUCT MANAGER documented in this encounter Plan of Treatment Not on filedocumented as of this encounter Visit Diagnoses Diagnosis Fibromyalgia Mylagia and myositis, unspecified documented in this encounter Additional Health Concerns Assessment Noted Time PHQ-9 Depression Total Score: 9 10/12/2016 7:16 AM CDT documented as of this encounter Care Teams Insurance Verification Rep Relationship Specialty Start Date End Date Vanda Guerrero MD PCP - General Internal Medicine 04/08/15 01/08/[address] [place] [address] [place] [address] Vanda Guerrero MD PCP - Assigned PCP 07/24/16 06/15/[address] [place] [address] [place] [address] documented as of this encounter
--- OUTSIDE RECORDS SUMMARY | 2022-02-06 10:16 | XMS_ITS | Encounter Summary ---
:1965 Author Organization [place] Address [address] [place] [address] Care Team Providers Name Role Phone Vanda Guerrero MD Primary Care Provider [phone] Vanda Guerrero MD Unavailable Reason for Referral Diagnostic Imaging Ultrasound - Closed Specialty Diagnoses / Procedures Referred By Contact Refer red To Contact Radiology. Diagnoses Alkaline phosphatase elevation Vanda Guerrero MD Ultrasound Rscc Procedures US Abdomen Limited 3[address] [facility] [address] [place] [address] [address] [address] Phone: Fax: Referral ID Status Reason Start Date Expiration Date Visits Requ ested Visits Authorized [id number] Closed 06/15/2017 06/15/2018 1 1 [facility] Reason for Visit Diagnostic Imaging Ultrasound - Closed Specialty Diagnoses / Procedures Referred By Contact Refer red To Contact Radiology. Diagnoses Alkaline phosphatase elevation Vanda Guerrero MD Ultrasound Rscc Procedures US Abdomen Limited 3[address] [place] [place] [address] [facility] [address] [address] Phone: Fax: Referral ID Status Reason Start Date Expiration Date Visits Requ ested Visits Authorized [id number] Closed 06/15/2017 06/15/2018 1 1 Encounter Details Date Type Department Care Team Description 06/21/2017 Hospital Encounter [facility] Felicia Toribio MD [facility] Imaging 3[address] [facility] elevation [address] [facility] [address] [place] [address] [place], [place] [phone] [address] (Work) [phone] Social History Tobacco Use Types Packs/Day Years [...] How often do you attend pentecostalism or nondenominational Patient refused 08/08/2019 services? Do [...] capsule 8 capsule 0 017 01/02/2019 D3) 76446 UNITS (50,000 Units) by capsuleIndications: mouth once [...] or female climacteric states fluticasone (FLONASE) 50 [place] 1-2 sprays 3 Bottle 3 06/1208/07/2019 MCG/ACT [...] AM Alkaline phosph atase Results for this KNIT GOODS WASHER elevation procedure are i n the results section. documented in this encounter Results US Abdomen Limited (06/21/2017 10:11 AM KNIT GOODS WASHER) Anatomical Region Laterality Modality Abdomen/Pelvis Ultrasound Specimen (Source) Anatomical Location Collection Method / Collectio n Time Received Time / Laterality Volume Impressions 06/21/2017 10:49 AM KNIT GOODS WASHER IMPRESSION: ??Fatty infiltration of the liver. No gallstones or bile duct dilatation. DWIGHT LOZA MD Narrative 06/21/2017 10:49 AM KNIT GOODS WASHER ULTRASOUND ABDOMEN LIMITED 06/21/2017 10:11 AM HISTORY: [...] as of this encounter Care Teams Business Project Manager Relationship Specialty Start Date End Date Vanda Guerrero MD PCP - General Internal Medicine 04/08/15 01/08/[address] [place] [address] [place] [address] Vanda Guerrero MD PCP - Assigned PCP 07/24/16 06/15/[address] [place] [address] [place] [address] documented as of this encounter
--- OUTSIDE RECORDS SUMMARY | 2022-02-06 10:16 | XMS_ITS | Encounter Summary ---
:1965 Author Organization [place] Address [address] [place] [address] Care Team Providers Name Role Phone Vanda Guerrero MD Primary Care Provider [phone] Vanda Guerrero MD Unavailable Reason for Visit Reason Comments RECHECK pt still having some pain an d swelling where the incision was, gets more and more swollen throughout the day Encounter Details Date Type Department Care Team Description 12/19/2016 Office Visit [facility] Agatha Null, Left fo ot pain (Primary Dx); Clinic [place] DPM, Podiatry/Foot Acute left ankle pain; [address] [facility] and Ankle Surgery Type 2 diabetes mellitus without complic ation, without long-term current use of insulin (H); [place] [address] Edema of left lower extremity; [address] [address] [address] cavus, congenital [phone] [place], [place] [phone] (Wo rk) Social History Tobacco Use Types [...] How often do you attend yazidism or latter day Patient refused 08/08/2019 services? Do you belong to any clubs or organizations such as No 08/08/2019 yazidism groups, Akdemias, fraternal or athletic groups, or school groups? [...] LOCATIONS: SUNDAY AM - [place] SUNDAY - [place] [address] [facility] [address] [place] [address] [place] [address] / FX [phone] / FX [phone] SUNDAY - [place] SUNDAY AM - [facility] [address] [address] [place] [address] [place] [address] / FX [phone] SUNDAY PM - [place] SCHEDULE SURGERY: [phone] [place] [address] BILLING QUESTIONS: [phone] [place] [address] AFTER HOURS: / FX [phone] APPOINTMENTS: [phone] DIABETES AND YOUR FEET Diabetes can result [...] 2000 IU daily), Alpha-Lipoic Acid (600-1800mg daily), Eiqnjo-M-Zkclahlfc (500-1000mg TID, L-methyl folate (1500mcgdaily) Metformin can [...] trim your own toenails contact [employer] ([phone]) or [employer] ([phone]). THINGS TO AVOID DOING 1. Do not [...] you smoke, stop!!! Home Medical Equipment: 1. [facility] [address] [facility], [phone] 2. [place] [facility] -[address] [address]: [address] [place] 3. [place] (knee walkers and power scooters) - [address] [facility] Shana [place], or 1662 [facility] [place], [phone]. 4. [place] [facility] - [address], 5. [facility], [address] [place] [address]. Body Mass Index (BMI) Many things can [...] as of this encounter Care Teams Plastic Die Maker Apprentice Relationship Specialty Start Date End Date Vanda Guerrero MD PCP - General Internal Medicine 04/08/15 01/08/19 [address] [facility] [address] A[place], DAVID [phone] Vanda Guerrero MD PCP - Assigned PCP 07/24/16 06/15/18 [address] [facility] [place] [address] documented as of this encounter
--- OUTSIDE RECORDS SUMMARY | 2022-02-06 10:16 | XMS_ITS | Encounter Summary ---
:1965 Author Organization [facility] Address [address] [place] [address] Care Team Providers Name Role Phone Vanda Guerrero MD Primary Care Provider [phone] Vanda Guerrero MD Unavailable Reason for Visit Reason Comments Medication Refill topiramate (TOPAMAX) 50 MG t ablet Encounter Details Date Type Department Care Team Description 12/11/2016 Refill [facility] Vanda Guerrero M edication Refill Clinic [facility] SALDANA (topiramate (TOPAMAX) [address] [place] 3305 [facility] 50 MG tablet) [facility] [address] [place] [address] [place] [address] [phone] Social History Tobacco Use Types Packs/Day Years [...] How often do you attend confucianist or jain Patient refused 08/08/2019 services? Do [...] as of this encounter Care Teams Power Plant Supervisor Relationship Specialty Start Date End Date Vanda Guerrero MD PCP - General Internal Medicine 04/08/15 01/08/[address] [place] [address] [place] [address] Vanda Guerrero MD PCP - Assigned PCP 07/24/16 06/15/[address] [place] [address] [place] [address] documented as of this encounter
--- OUTSIDE RECORDS SUMMARY | 2022-02-06 10:16 | XMS_ITS | Encounter Summary ---
:1965 Author Organization [facility] Address [address] [place] [address] Care Team Providers Name Role Phone Vanda Guerrero MD Primary Care Provider [phone] Vanda Guerrero MD Unavailable Reason for Visit Reason Comments Medication Refill loratadine-pseudoePHEDrine ( CLARITIN-D 24-HOUR) 10-240 MG per tablet Encounter Details Date Type Department Care Team Description 02/02/2017 Refill [facility] [place] APRN CAST SHELL GRINDER (loratadine-pseudoePHEDr [address] [place] 3305 [facility] ine ( CLARITIN-D 24-HOUR) [facility] 10-240 MG per tablet ) [address] [place] [address] [place] [address] [phone] Social History Tobacco Use Types Packs/Day Years [...] How often do you attend scientology or sabianism Patient refused 08/08/2019 services? Do [...] active on patient's medication list, not on [facility] protocol. Kirsten Casillas, tube room cashier Nurse Telephone Encounter - Marisa Matthew - 02/05/2017 8:15 AM CDT loratadine-pseudoePHEDrine (CLARITIN-D 24-HOUR) 10-240 MG per tablet Last Written Prescription Date: 02/23/2016 Last Fill Quantity: 90, # refills: 3 Last Office Visit with [facility] or Health prescribing provider: 09/25/2016 Future Office visit: Routing refill request to provider for review/approval because: Drug not on the [facility], [facility] or Health refill protocol or controlled substance documented in this encounter Plan of Treatment Not on filedocumented as of this encounter Visit Diagnoses Diagnosis Chronic seasonal allergic rhinitis, unsp ecified trigger - Primary documented in this encounter Additional Health Concerns Assessment Noted Time PHQ-9 Depression Total Score: 9 10/12/2016 7:16 AM CDT documented as of this encounter Care Teams Special Needs Child Caregiver Relationship Specialty Start Date End Date Vanda Guerrero MD PCP - General Internal Medicine 04/08/15 01/08/19 3305 [facility] [place] [address] Vanda Guerrero MD PCP - Assigned PCP 07/24/16 06/15/18 3305 [facility] [place] [address] documented as of this encounter
--- OUTSIDE RECORDS SUMMARY | 2022-02-06 10:16 | XMS_ITS | Encounter Summary ---
:1965 Author Organization [facility] Address [address] [place] [address] Care Team Providers Name Role Phone Vanda Guerrero MD Primary Care Provider [phone] Vanda Guerrero MD Unavailable Reason for Visit Reason Onset Date Comments Refill Request 11/01/2016 gabapentin (NEURONTI N) 300 MG capsule Encounter Details Date Type Department Care Team Description 11/01/[address] [facility] Vanda Guerrero R efill Request Clinic [place]ino SALDANA (gabapentin (NEURONTIN) [address] [place] 3305 [facility] 300 M G capsule) [facility] [address] [place] [address] [place] [address] [phone] Social History Tobacco Use Types Packs/Day Years [...] How often do you attend advent or samaritan Patient refused 08/08/2019 services? Do [...] # refills: 11 Last Office Visit with [facility] or Health prescribing provider: 09/25/16 Future Office visit: Routing refill request to provider for review/approval because: Drug not on the [facility] or M Health refill protocol or [...] as of this encounter Care Teams Heel Brusher Relationship Specialty Start Date End Date Vanda Guerrero MD PCP - General Internal Medicine 04/08/15 01/08/19 3305 [facility] [place] [address] Vanda Guerrero MD PCP - Assigned PCP 07/24/16 06/15/18 3305 [facility] [place] [address] documented as of this encounter
--- OUTSIDE RECORDS SUMMARY | 2022-02-06 10:16 | XMS_ITS | Encounter Summary ---
:1965 Author Organization [facility] Address [address] [place] [address] Care Team Providers Name Role Phone Vanda Guerrero MD Primary Care Provider [phone] Vanda Guerrero MD Unavailable Reason for Visit Reason Comments Medication Refill simvastatin (ZOCOR) 20 MG ta blet Encounter Details Date Type Department Care Team Description 05/15/2017 Refill [facility] Vanda Guerrero M edication Refill Clinic [place] SALDANA (simvastatin (ZOCOR) 20 [address] [place] 3305 [facility] MG ta blet) [facility] [address] [place] [address] [place] [address] [phone] Social History Tobacco Use Types Packs/Day Years [...] How often do you attend amish or jain Patient refused 08/08/2019 services? Do [...] Gayathri Mcallister RN - 05/16/2017 11:16 AM MEAL ATTENDANT Patient is due for a diabetic appointment. Routing refill request to provider for review/approval because: Labs out of range: LDL not at goal Gayathri Mcallister RN Message handled by Nurse Triage. ATTENDANT Telephone Encounter - Marisa Matthew - 05/15/2017 10:34 AM CST YOSELIN 09/25/2016 ATTENDANT documented in this encounter Plan of Treatment Not on filedocumented as of this encounter Visit Diagnoses Diagnosis Hyperlipidemia LDL goal <100 Other and unspecified hyperlipidemia documented in this encounter Additional Health Concerns Assessment Noted Time PHQ-9 Depression Total Score: 9 10/12/2016 7:16 AM CDT documented as of this encounter Care Teams Rn Pediatric Icu Relationship Specialty Start Date End Date Vanda Guerrero MD PCP - General Internal Medicine 04/08/15 01/08/19 3305 [facility] [place] [phone] Vanda Guerrero MD PCP - Assigned PCP 07/24/16 06/15/18 3305 [facility] [place] [address] documented as of this encounter
--- OUTSIDE RECORDS SUMMARY | 2022-02-06 10:16 | XMS_ITS | Encounter Summary ---
:1965 Author Organization [facility] Address [address] [place] [address] Care Team Providers Name Role Phone Vanda Guerrero MD Primary Care Provider [phone] Vanda Guerrero MD Unavailable Reason for Visit Reason Onset Date Comments Refill Request 10/06/2016 blood glucose monito ring (ONE TOUCH DELICA) lancets Encounter Details Date Type Department Care Team Description 10/06/2016 Refill [facility] Vanda Guerrero R efill Request (blood Clinic Pino SALDANA glucose monitoring (ONE [address] [employer] [address] [place] TOUCH DELICA) lancets) [facility] [address] [place] [address] [place] [address] [phone] Social History Tobacco Use Types Packs/Day Years [...] How often do you attend quaker or zoroastrian Patient refused 08/08/2019 services? Do [...] 10/06/2016 11:35 AM CDT Prescription approved per [facility] Refill Protocol. Kirsten Casillas, marketing operations intern Nurse Telephone Encounter - Meri Palma - 10/06/2016 10:11 AM CDT blood glucose monitoring (ONE TOUCH DELICA) lancets Last Written Prescription Date: 10/07/15 Last Fill Quantity: 1 box, # refills: prn Last Office Visit with [facility], [facility] or [facility] prescribing provider: 09/25/16 Next 5 appointments (look out 90 days) October 11, 2016 2:30 PM CDT [facility] [place] [facility] [address] [place] [address] [address] [facility] [address] BP Readings from Last 3 [...] documented as of this encounter Care Teams Stunt Man Relationship Specialty Start Date End Date Vanda Guerrero MD PCP - General Internal Medicine 04/08/15 01/08/19 [address]305 [facility] [place] [address] Vanda Guerrero MD PCP - Assigned PCP 07/24/16 06/15/18 [address] [facility] [place] [address] documented as of this encounter
--- OUTSIDE RECORDS SUMMARY | 2022-02-06 10:16 | XMS_ITS | Encounter Summary ---
:1965 Author Organization [facility] Address [address] [place] [address] Care Team Providers Name Role Phone Vanda Guerrero MD Primary Care Provider [phone] Vanda Guerrero MD Unavailable Reason for Visit (Routine) - Closed Specialty Diagnoses / Procedures Referred By Contact Refer red To Contact Radiology / Radiology. Diagnoses EPIC ORDER SB PT PREP INFORMED Rh Nuclear Medicine Procedures NM MPI WITH LEXISCAN [address] [place] [address] Phone: Fax: Referral ID Status Reason Start Date Expiration Date Visits Requ ested Visits Authorized [id number] Closed 10/17/2016 10/17/2017 1 1 Encounter Details Date Type Department Care Team Description 10/17/2016 Hospital Encounter [facility] Vanda Guerrero [facility] [address] 8026 [facility] [address] [place], [place] [id number] (Wo rk) Social History Tobacco Use Types [...] How often do you attend taoism or moravian Patient refused 08/08/2019 services? Do you belong to any clubs or organizations such as No 08/08/2019 taoism groups, Chelailes, fraternal or athletic groups, or school groups? [...] capsule 8 capsule 0 017 01/02/2019 D3) 67762 UNITS (50,000 Units) by capsuleIndications: mouth once [...] climacteric states times weekly fluticasone (FLONASE) 50 [place] 1-2 sprays 3 Bottle 3 05/0306/12/2017 MCG/ACT [...] Routine 10/17/2016 2:34 PM Family history of NM R esults for this LEXISCAN CDT (myocardial [...] documented as of this encounter Care Teams Mussel Opener Relationship Specialty Start Date End Date Vanda Guerrero MD PCP - General Internal Medicine 04/08/15 01/08/19 3305 [facility] [place] [address] Vanda Guerrero MD PCP - Assigned PCP 07/24/16 06/15/18 3305 [facility] [place] [address] documented as of this encounter
--- OUTSIDE RECORDS SUMMARY | 2022-02-06 10:16 | XMS_ITS | Encounter Summary ---
:1965 Author Organization [facility] Address [address] [place] [address] Care Team Providers Name Role Phone Vanda Guerrero MD Primary Care Provider [phone] Vanda Guerrero MD Unavailable Reason for Visit Reason Onset Date Comments Outreach 04/26/2017 Encounter Details Date Type Department Care Team Description 04/26/[address] [facility] Sandy Joe, Outreach [facility] [address] [place] [address] [address] [place] [address] Social History [...] How often do you attend pentecostalism or yazdanism Patient refused 08/08/2019 services? Do [...] Sandy Joe RPH - 04/26/2017 12:19 PM WEB RETAILER We have attempted to contact this patient two times to set up a MTM follow up appointment and were unsuccessful. Contact attempts were made via Instant Opinion. We will no longer continue to contact this patient to schedule a visit at this time. Please refer back to MTM if you believe this patient would continue to benefit from our services. Thank you! Sandy Joe PharmD BCPS Medication Therapy Management Practitioner #[phone] RETAILER documented in this encounter Plan of Treatment Not on filedocumented as of this encounter Visit Diagnoses Not on filedocumented in this encounter Additional Health Concerns Assessment Noted Time PHQ-9 Depression Total Score: 9 10/12/2016 7:16 AM CDT documented as of this encounter Care Teams Handbook Writer Relationship Specialty Start Date End Date Vanda Guerrero MD PCP - General Internal Medicine 04/08/15 01/08/[address] [facility] [place] [address] Vanda Guerrero MD PCP - Assigned PCP 07/24/16 06/15/[address] [facility] [place] [address] documented as of this encounter
--- OUTSIDE RECORDS SUMMARY | 2022-02-06 10:16 | XMS_ITS | Encounter Summary ---
:1965 Author Organization [facility] Address [address] [place] [address] Care Team Providers Name Role Phone Vanda Borja MD Primary Care Provider [phone] Vanda Borja MD Unavailable Encounter Details Date Type Department Care Team Description 02/17/2017 Orders Only [facility] Thea vated alkaline phosphatase level; [place] [facility] Hypernatremia; [address] [place] Vitamin D deficiency; [address] Hyperlipidemia LDL [...] How often do you attend cheondoism or cheondoism Patient refused 08/08/2019 services? Do [...] 67 (H) 0 - 40 U/L 02/20/2017 [facility] 7:47 AM CDT [facility] Specimen Anatomical Collection Method Collection Time Receive d Time (Source) Location / / Volume Laterality Blood specimen 02/17/2017 9:13 AM 017 8:18 (specimen) CDT PM CDT Vanda Borja MD LAB - BLOOD ORDERABLES Performing Organization Address City/State/ZIP Code Phon e Number [facility] [address] [place] [address] (ABNORMAL) Lipid panel reflex to direct LDL (02/17/2017 9:13 AM CDT) athologist Signature Cholesterol 178 <200 mg/dL 02/17/2017 [facility] 2:14 PM CDT [facility] Triglycerides 121 <150 mg/dL 02/17/2017 [facility] CS 2:14 PM CDT [facility] Comment: Fasting specimen HDL Cholesterol 43 (L) >49 mg/dL 02/17/2017 2:14 PM [facility] CDT [facility] LDL Cholesterol 111 (H) <100 mg/dL 02/17/2017 2:14 PM [facility] Calculated CDT [facility] Comment: Above desirable: ??100-129 mg/dl Borderline High: ??130-159 mg/dL High: ? 160-189 mg/dL Very high: ? >189 mg/dl Non HDL Cholesterol 135 (H) <130 mg/dL 02/17/2017 2:14 PM [facility] CDT [facility] Comment: Above Desirable: ??130-159 mg/dl Borderline high: ??160-189 mg/dl High: ? 190-219 mg/dl Very high: ? >219 mg/dl Specimen Anatomical Collection Method Collection Time Receive d Time (Source) Location / / Volume Laterality Blood specimen 02/17/2017 9:13 AM 017 9:18 (specimen) CDT AM CDT Vanda Borja MD LAB - BLOOD ORDERABLES Performing Organization Address City/State/ZIP Code Phon e Number [facility] [address] [place] [address] Vitamin D Deficiency (02/17/2017 9:13 AM CDT) athologist Signature Vitamin D 33 20 - 75 02/19/2017 [facility] ug/L 2:25 PM CDT [facility] Comment: Season, race, dietary intake, and treatm ent affect the concentration of 01-kwrhchp-Enohoof D. Values may decreas e during winter [...] e Number [facility] [address] [place] [address] [facility] (ABNORMAL) Comprehensive metabolic panel (02/17/2017 9:13 AM CDT) Analysis Performed At Patho logist Time Signature Sodium 145 (H) 133 - 144 02/17/2017 [place] mmol/L 2:14 PM T [facility] Potassium 3.9 3.4 - 5.3 02/17/2017 [place] mmol/L 2:14 PM T [facility] Chloride 111 (H) 94 - 109 02/17/2017 [place] mmol/L 2:14 PM T [facility] Carbon Dioxide 28 20 - 32 02/17/2017 [place] mmol/L 2:14 PM T [facility] Anion Gap 6 3 - 14 02/17/2017 [place] mmol/L 2:14 PM T [facility] Glucose 137 (H) 70 - 99 02/17/2017 [place] mg/dL 2:14 PM T [facility] Comment: Fasting specimen Urea Nitrogen 12 7 - 30 mg/dL 02/17/2017 2:14 PM T [facility] Creatinine 0.75 0.52 - 1.04 mg/dL 02/17/2017 2:14 PM CD T [facility] GFR Estimate 80 >60 mL/min/1.7m2 02/17/2017 2:14 PM C DT [facility] Comment: Non GFR Calc GFR Estimate If >90 >60 mL/min/1.7m2 02/17/2017 2:14 P M [facility] Black [facility] Comment: GFR Calc Calcium 9.1 8.5 - 10.1 02/17/2017 2:14 PM [facility] mg/dL [facility] Bilirubin Total 0.5 0.2 - 1.3 02/17/2017 2:14 PM [facility] mg/dL [facility] Albumin 3.5 3.4 - 5.0 g/dL 02/17/2017 2:14 PM [facility] Protein Total 7.3 6.8 - 8.8 g/dL 02/17/2017 2:14 PM [facility] Alkaline Phosphatase 169 (H) 40 - 150 U/L 02/17/2017 2:14 PM [facility] ALT 32 0 - 50 U/L 02/17/2017 2:14 PM [place] [facility] CDT [facility] AST 17 0 - 45 U/L 02/17/2017 2:14 PM [place] CDT [facility] Specimen Anatomical Collection Method Collection Time Receive d Time (Source) Location / / Volume Laterality Blood specimen 02/17/2017 9:13 AM 017 9:18 (specimen) CDT AM CDT Vanda Borja MD LAB - BLOOD ORDERABLES Performing Organization Address City/State/ZIP Code Phon e Number [facility] [address] [place] [address] documented in this encounter Visit Diagnoses Diagnosis Elevated alkaline phosphatase level Other nonspecific abnormal serum enzyme levels Hypernatremia Hyperosmolality and/or hypernatremia Vitamin D deficiency Unspecified vitamin D deficiency Hyperlipidemia LDL goal <100 Other and unspecified hyperlipidemia documented in this encounter Additional Health Concerns Assessment Noted Time PHQ-9 Depression Total Score: 9 10/12/2016 7:16 AM CDT documented as of this encounter Care Teams Boat Hoist Operator Helper Relationship Specialty Start Date End Date Vanda Borja MD PCP - General Internal Medicine 04/08/15 01/08/19 [address]305 [facility] [place] [address] Vanda Broja MD PCP - Assigned PCP 07/24/16 06/15/18 [address]305 [facility] [place] [address] documented as of this encounter
--- OUTSIDE RECORDS SUMMARY | 2022-02-06 10:17 | XMS_ITS | Encounter Summary ---
:1965 Author Organization [facility] Address [address] [place] [address] Care Team Providers Name Role Phone Vanda Guerrero MD Primary Care Provider [phone] Vanda Guerrero MD Unavailable JeanaNoreen girard STAIN REMOVER RESEARCH MECHANIC Unavailable [phone] JeanaNoreen girard STAIN REMOVER RESEARCH MECHANIC Unavailable [phone] JeanaNoreen girard STAIN REMOVER RESEARCH MECHANIC Primary Care Provider Kalyan Galvan Unavailable Unavailable Lashae Trevino [facility] Unavailable [phone] Eduardo Sharma MD Unavailable Rios Monteiro MD Unavailable Marcelo Artis-C Unavailable [phone] Rodrigo Man-C Unavailable Reason for Visit Reason Onset Date Comments Refill Request 08/30/2016 Metformin 500mg tab Encounter Details Date Type Department Care Team Description 08/30/2016 Refill [facility] Vanda Guerrero R efill Request Clinic Pino SALDANA (Metformin 500mg tab) [address] [place] [address]305 [facility] [address] [place] [address] [place] [address] [phone] Social History Tobacco Use Types Packs/Day Years [...] How often do you attend restoration or buddhism Patient refused 08/08/2019 services? Do [...] # refills: 1 Last Office Visit with [facility], [facility] or [facility] prescribing provider: 06/01/16 BP Readings from Last [...] as of this encounter Care Teams Director Biologics Relationship Specialty Start Date End Date Vanda Guerrero, PCP - General Internal Medicine 04/08/15 01/08/19 [address] [facility] [place] [address] Vanda Guerrero, PCP - Assigned PCP 07/24/16 06/15/18 [address] [facility] [place] [address] [place] PCP - Assigned PCP 06/16/18 08/13/18 SEAN Haley RESEARCH MECHANIC [address] [facility] [place] [address] [place]en [place] PCP - General Nurse Practitioner 01/09/19 12/12/21 SEAN Haley RESEARCH MECHANIC [address] [facility] [address] [place] Assigned PCP 06/16/18 SEAN Haley RESEARCH MECHANIC [address] [facility] [address] Kalyan Galvan Personal Advocate & 08/08/19 Liaison (PAL) Lashae Trevino Pharmacist Pharmacist 10/14/19 12/01/20 [facility] [address] [facility] [address] [place], [place] [id number] Eduardo Sharma MD Assigned Sleep Provider 04/02/20 05/07/[address] [place] [address] [place] [id number] Rios Monteiro MD Assigned Musculoskeletal 04/02/20 08/24/[address] Provider [address] [place] [address] Marcelo Artis Assigned Musculoskeletal 08/25/20 08/20/21 MIKAYLA Nuno Provider [address] [place], [place] [address] Rodrigo Man Assigned Surgical 08/25/2011/27 MIKAYLA Lacy Provider [address] [place] [address] documented as of this encounter
--- OUTSIDE RECORDS SUMMARY | 2022-02-06 10:17 | XMS_ITS | Encounter Summary ---
:1965 Author Organization [facility] Address [address] [place] [address] Care Team Providers Name Role Phone Vanda Guerrero MD Primary Care Provider [phone] Reason for Visit Reason Onset Date Comments Prior Authorization 05/25/2016 Encounter Details Date Type Department Care Team Description 05/25/2016 Telephone [facility] Agatha Null, DPM, Pr ior Authorization Clinic [facility] [address] [place] [address] Ankle Surgery [address] [place] [address] [facility] [phone] [place], [place] [address] (Wo rk) Social History [...] How often do you attend catholic or mu-ism Patient refused 08/08/2019 services? Do [...] 1:[address] @ [facility], , no precert is required for patient's 06/08/[address] Null. CPT code 11873. DENT PHYSICIAN documented in this encounter Plan of Treatment Not on filedocumented as of this encounter Visit Diagnoses Not on filedocumented in this encounter Additional Health Concerns Assessment Noted Time PHQ-9 Depression Total Score: 11 05/02/2016 7:09 AM CS T documented as of this encounter Care Teams Hip Hop Dance Instructor Relationship Specialty Start Date End Date Vanda Guerrero MD PCP - General Internal Medicine 04/08/15 01/08/[address] [place], [place] [address] documented as of this encounter
--- OUTSIDE RECORDS SUMMARY | 2022-02-06 10:17 | XMS_ITS | Encounter Summary ---
:1965 Author Organization [facility] Address [address] [place] [address]. [place] [address] Care Team Providers Name Role Phone Vanda Guerrero MD Primary Care Provider [phone] Reason for Visit Auth/Cert Specialty Diagnoses / Procedures Referred By Contact Refer red To Contact Surgery Diagnoses Peroneal Tendon tear Rh Periop Services Procedures REPAIR TENDON PERONEAL [address] [place], [place] [address] Fax: Referral ID Status Reason Start Date Expiration Date Visits Requ ested Visits Authorized [id number] 1 1 Encounter Details Date Type Department Care Team Description 06/08/2016 Anesthesia Event [facility] Olivier Sanchez PeriOp Services MD Sherwin [address] [place] [address] ANESTH ES[place] [address] [place], [place] [address] (Wo rk) Anesthesia Record [...] How often do you attend uatsdin or mosque Patient refused 08/08/2019 services? Do [...] OR Notes Anesthesia Postprocedure Evaluation - Garry Sanchze MD - 06/08/2016 11:23 AM CST Patient: [...] Sanchez MD June 08, 2016 11:23 AM OLEUM PLANT OPERATOR Anesthesia Procedure Notes - Garry Sanchez [...] trained nor qualified to perform this procedure. OLEUM PLANT OPERATOR Anesthesia Preprocedure Evaluation - Garry Sanchez [...] blood products discussed: No . . . OLEUM PLANT OPERATOR documented in this encounter Miscellaneous Notes [...] prepare to transfer to PACU, Report to PICKLE CUTTER. VSS transfer care Vitals: (Last set prior to Anesthesia Care Transfer) Electronically Signed By: Bryson Marie APRN SENIOR SALES OPERATIONS ANALYST June 08, 2016 11:18 AM OLEUM PLANT OPERATOR documented in this encounter Plan of Treatment Not on filedocumented as of this encounter Procedures Procedure Name Priority Date/Time Associated Diagnosis Comme nts ANE Routine 06/08/2016 10:12 AM Results for this PERIPHERAL/PARAVETE PETROLEUM PLANT OPERATOR procedur e are in BRAL BLOCK the results section. documented in this encounter Results Peripheral/Paravetebral Block (06/08/2016 10:12 AM PETROLEUM PLANT OPERATOR) Narrative Garry Sanchez MD - 016 10:12 AM PETROLEUM PLANT OPERATOR Garry Sanchez MD ? 06/08/2016 10:12 [...] scrub. Nerve Stim: Initial Level 1 mA. ??[place] t motor response 0.5 mA.. ?? Needle: [...] to perform this procedure. Garry Sanchez MD DC ANESTHESIA Peripheral/Paravetebral Block (06/08/2016 10:12 AM PETROLEUM PLANT OPERATOR) Narrative Garry Sanchez MD - 016 10:12 AM PETROLEUM PLANT OPERATOR Garry Sanchez MD ? 06/08/2016 10:12 [...] scrub. Nerve Stim: Initial Level 1 mA. ??[place] t motor response 0.5 mA.. ?? Needle: [...] to perform this procedure. Garry Sanchez MD DC ANESTHESIA documented in this encounter Visit Diagnoses Not on filedocumented in this encounter Administered Medications Inactive Administered Medications - up to 3 most recent administrations Medication Order MAR Action Action Date Dose Rate Site bupivacaine 0.5 % - EPINEPHrine Given 06/08/2016 9:53 AM PETROLEUM PLANT OPERATOR 40 mLs 1:200,000 injection PRN, Starting on Elda 06/08/16 at 0953, Anesthesia Intra-op ceFAZolin sodium-dextrose (ANCEF) infusi on 2 g Given 06/08/2016 10:08 AM PETROLEUM PLANT OPERATOR 2 g Routine, 2 g, Intravenous, PRE-OP/PRE-PROCEDURE, Starting on Elda 06/08/16 at 0859, For 1 dose, Give first dose within 1 hour PRIOR to incision. If patient weight is greater than or equal to 120 kg increase dose to 3 g., Indications: Perioperative Pharmacoprophylaxis, Pre-procedure dexamethasone (DECADRON) injection Given 06/08/2016 10:13 AM PETROLEUM PLANT OPERATOR 8 mg PRN, Administer over 1-4 Minutes, Starting on [place] 06/08/16 at 1013, Anesthesia Intra-op fentaNYL Citrate (PF) (SUBLIMAZE) inject ion Given 06/08/2016 10:13 AM PETROLEUM PLANT OPERATOR 75 mcg PRN, moderate to severe pain, Starting on [place]a 06/08/16 at 0953, Anesthesia Intra-op Given 06/08/2016 9:53 AM PETROLEUM PLANT OPERATOR 50 mcg glycopyrrolate (ROBINUL) injection Given 06/08/2016 10:13 AM PETROLEUM PLANT OPERATOR 0.2 mg PRN, Starting on [place] 06/08/16 at 1013, Anesthesia Intra-op ketorolac (TORADOL) injection Given 06/08/2016 10:13 AM PETROLEUM PLANT OPERATOR 30 mg PRN, moderate pain, Starting on [place]a 06/08/16 at 1013, Anesthesia Intra-op lactated ringers infusion New Bag 06/08/2016 11:00 AM PETROLEUM PLANT OPERATOR at 25 mL/hr, Intravenous, CONTINUOUS, IF patient NOT on dialysis., Pre-procedure, Starting on Elda 06/08/16 at 0915, Until Elda 06/08/16 at 1115 New Bag 06/08/2016 10:08 AM PETROLEUM PLANT OPERATOR lidocaine 1 % 1 mL Given 06/08/2016 10:13 AM PETROLEUM PLANT OPERATOR 30 mg 1 mL, Other, EVERY 1 HOUR PRN, mild pain with VAD insertion or accessing implanted port, Starting on Elda 06/08/16 at 0901, Do NOT give if patient has a history of allergy to any local anesthetic or any jabier product. MAX dose 1 mL subcutaneous OR intradermal in divided doses., Pre-procedure methylPREDNISolone acetate (DEPO-MEDROL) Given 06/08/2016 9:53 A M PETROLEUM PLANT OPERATOR 80 mg injection PRN, Starting on [place]a 06/08/16 at 0953, Anesthesia Intra-op midazolam (VERSED) injection Given 06/08/2016 10:08 AM PETROLEUM PLANT OPERATOR 2 mg PRN, anxiety, Starting on Elda 06/08/16 at 0953, Anesthesia Intra-op Given 06/08/2016 9:53 AM PETROLEUM PLANT OPERATOR 2 mg ondansetron (ZOFRAN) injection Given 06/08/2016 10:13 AM PETROLEUM PLANT OPERATOR 4 mg PRN, nausea, vomiting, Administer over 2-5 Minutes, Starting on [place]a 06/08/16 at 1013, Anesthesia Intra-op propofol (DIPRIVAN) injection 10 mg/mL v ial Given 06/08/2016 10:13 AM PETROLEUM PLANT OPERATOR 200 mg PRN, Starting on [place]a 06/08/16 at 1013, Anesthesia Intra-op rocuronium (ZEMURON) injection Given 06/08/2016 10:13 AM PETROLEUM PLANT OPERATOR 20 mg PRN, Starting on [place]a 06/08/16 at 1013, Anesthesia Intra-op documented in this encounter Additional Health Concerns Assessment Noted Time PHQ-9 Depression Total Score: 11 05/02/2016 7:09 AM CS T documented as of this encounter Care Teams Investment Broker Relationship Specialty Start Date End Date Vanda Guerrero MD PCP - General Internal Medicine 04/08/15 01/08/[address] [place] [address] documented as of this encounter
--- OUTSIDE RECORDS SUMMARY | 2022-02-06 10:17 | XMS_ITS | Encounter Summary ---
:1965 Author Organization [facility] Address [address] [place] [address] Care Team Providers Name Role Phone Vanda Guerrero MD Primary Care Provider [phone] Vanda Guerrero MD Unavailable Reason for Visit Reason Comments Surgical Followup Left peroneal tendon repair and transfer DOS 06/08/16 Encounter Details Date Type Department Care Team Description 08/15/2016 Office Visit [facility] Agatha Null, Post-op erative state (Primary Dx); Clinic [place] DPM, Podiatry/Foot Type 2 diabetes mellitus wit hout complication, without long- term current use of insulin (H); [address] and Ankle Surgery Peroneal tendon tear, right, [place] [address] [place] [address] [facility] [address] [place], [place] [address] (Wo rk) Social History Tobacco Use Types [...] often do you attend jehovah's witness or jainism Patient refused 08/08/2019 services? Do [...] Comments Blood Pressure 114/74 08/15/2016 9:54 AM DIRECTOR AGENCY & STRATEGIC PARTNERSHIPS Pulse - - Temperature - - Respiratory Rate - - Oxygen Saturation - - Inhaled Oxygen Concentration - - Weight 86.6 kg (191 lb) 08/15/2016 9:54 AM DIRECTOR AGENCY & STRATEGIC PARTNERSHIPS Height 157.5 cm (5' 2) 08/15/2016 9:54 AM DIRECTOR AGENCY & STRATEGIC PARTNERSHIPS Body Mass Index 34.93 08/15/2016 9:54 AM DIRECTOR AGENCY & STRATEGIC PARTNERSHIPS documented in this encounter Patient Instructions Patient InstructionsLarry Michael - 08/15/2016 10:[address] [facility] Schedule Follow up in 2 months Sunday AM Sunday [facility] [address] [place] [address] [facility] [address] [place] [address] [facility] [address] [place] [address] Sunday PM & Sunday AM Sunday PM Surgery Scheduling Line: [phone] [facility] [place] [address] [place] [address] [facility] [address] [place] [address] Appointment [phone] General After Hours: Patient [phone] To Schedule surgery, Call: [phone] CTOR AGENCY & STRATEGIC PARTNERSHIPS documented in this encounter Progress Notes Agatha Null, DPM, Podiatry/Foot and Ankle Surgery - 08/15/2016 10:00 AM DIRECTOR AGENCY & STRATEGIC PARTNERSHIPS Podiatry / Foot and Ankle Surgery Progress [...] kg). Medication Reconciliation: complete Larry Michael MA CTOR AGENCY & STRATEGIC PARTNERSHIPS documented in this encounter Plan of Treatment [...] as of this encounter Care Teams Foreign Banknote Teller Trader Relationship Specialty Start Date End Date Vanda Guerrero MD PCP - General Internal Medicine 04/08/15 01/08/19 [address] [facility] [place] [address] Vanda Guerrero MD PCP - Assigned PCP 07/24/16 06/15/18 [address] [facility] [place] [address] documented as of this encounter
--- OUTSIDE RECORDS SUMMARY | 2022-02-06 10:17 | XMS_ITS | Encounter Summary ---
:1965 Author Organization [facility] Address [address] [place] [address] Care Team Providers Name Role Phone Vanda Guerrero MD Primary Care Provider [phone] Encounter Details Date Type Department Care Team Description 05/22/2016 Orders Only [facility] Agatha Null, Peronea l tendon tear, left, subsequent encounter (Primary Dx); Clinic [place] DPM, Podiatry/Foot Post-operative state [address] [facility] [place] and Ankle Surgery [place] [phone] [place] [phone] [facility] [address] [place], [place] [id number] (Wo rk) Social History Tobacco Use Types [...] How often do you attend pentecostalism or mosque Patient refused 08/08/2019 services? Do [...] as of this encounter Care Teams Rn Lab Relationship Specialty Start Date End Date Vanda Guerrero MD PCP - General Internal Medicine 04/08/15 01/08/[address] [place] [address] documented as of this encounter
--- OUTSIDE RECORDS SUMMARY | 2022-02-06 10:17 | XMS_ITS | Encounter Summary ---
:1965 Author Organization [facility] Address [address] [place] [address] Care Team Providers Name Role Phone Vanda Guerrero MD Primary Care Provider [phone] Reason for Visit Reason Comments Surgical Followup Left foot peroneal tendon re pair/transfer DOS 06/08/16 Encounter Details Date Type Department Care Team Description 06/13/2016 Office Visit [facility] Agatha Null, Post-op erative state (Primary Dx); Clinic [place] DPM, Podiatry/Foot Burning with urination [address] [facility] [place] [address] [place] [address] [place] [address] [place] [address] (Wo rk) Social History Tobacco [...] Comments Blood Pressure 134/82 06/13/2016 9:59 AM SWEEPER OPERATOR HIGHWAYS Pulse - - Temperature - - Respiratory Rate - - Oxygen Saturation - - Inhaled Oxygen Concentration - - Weight 86.6 kg (191 lb) 06/13/2016 9:59 AM SWEEPER OPERATOR HIGHWAYS Height 157.5 cm (5' 2) 06/13/2016 9:59 AM SWEEPER OPERATOR HIGHWAYS Body Mass Index 34.93 06/13/2016 9:59 AM SWEEPER OPERATOR HIGHWAYS documented in this encounter Patient Instructions Patient InstructionsLarry Michael - 06/13/2016 10:[address] [facility] Schedule Follow up in 1 week Sunday AM Sunday [facility] [address] [place] [address] [facility] [address] [address] [place] [address] [facility] [address] [place] [address] Sunday PM & Sunday AM Sunday PM Surgery Scheduling Line: [phone] [facility] Wound Healing [place] [address] [place] [address] [facility] [address] [place] [address] [place] [address] Appointment [phone] General After Hours: Patient [phone] PER OPERATOR HIGHWAYS documented in this encounter Progress Notes Agatha Null, MARÍA, Podiatry/Foot and Ankle Surgery - 06/13/2016 10:03 AM SWEEPER OPERATOR HIGHWAYS Podiatry / Foot and Ankle Surgery Progress [...] completed using cuff size: kait Michael MA PER OPERATOR HIGHWAYS documented in this encounter Plan of Treatment Not on filedocumented as of this encounter Procedures Procedure Name Priority Date/Time Associated Diagnosis Comme nts URINE CULTURE Routine 06/13/2016 10:21 AM Burning with Results for this SWEEPER OPERATOR HIGHWAYS urination procedure are i n the results section . documented in this encounter Results (ABNORMAL) Urine Culture Aerobic Bacterial (06/13/2016 10:21 AM SWEEPER OPERATOR HIGHWAYS) Component Value Ref Test Analysis Performed At [facility] Range Method Time Signature Specimen Midstream Urine [facility] Culture Micro 10,000 to INFECTIOUS 50,000 DISEASE colonies/mL DIAGNOSTIC Escherichia LABORATORY coli (A) Micro Report FINAL INFECTIOUS Status 06/14/2016 DISEASE DIAGNOSTIC LABORATORY Organism: 10,000 to INFECTIOUS 50,000 DISEASE colonies/mL DIAGNOSTIC Escherichia LABORATORY coli Specimen Anatomical Collection Method Collection Time Receive d Time (Source) Location / / Volume Laterality Urine specimen 06/13/2016 10:21 7 (specimen) AM SWEEPER OPERATOR HIGHWAYS 10:22 AM SWEEPER OPERATOR HIGHWAYS Organism Antibiotic Method Susceptibility 10,000 to 50,000 [...] Code Phon e Number INFECTIOUS DISEASES [address] [place] [address] DIAGNOSTIC LABORATORY, [address] [address] [place] INFECTIOUS DISEASE [address] [place], [place] [address] DIAGNOSTIC LABORATORY documented in this encounter Visit Diagnoses Diagnosis Post-operative state - Primary Other postprocedural status Burning with urination Dysuria documented in this encounter Additional Health Concerns Assessment Noted Time PHQ-9 Depression Total Score: 11 05/02/2016 7:09 AM CS T documented as of this encounter Care Teams Vessel Scrapper Relationship Specialty Start Date End Date Vanda Guerrero MD PCP - General Internal Medicine 04/08/15 01/08/19 [address] [facility] [place] [address] documented as of this encounter
--- OUTSIDE RECORDS SUMMARY | 2022-02-06 10:17 | XMS_ITS | Encounter Summary ---
:1965 Author Organization [facility] Address [address] [place] [address] Care Team Providers Name Role Phone Vanda Guerrero MD Primary Care Provider [phone] Reason for Visit [facility] Physical Therapy (Routine) - Closed Specialty Diagnoses / Procedures Referred By Contact Refer red To Contact Physical Therapy Diagnoses new pt needs paperwork post peroneal tendon repair surgery left foot. / Agatha Null DPM, Pod @ Cr Pod[facility]ry Agatha Null DPM, Candy [place], PT Procedures EXTREMITY INITIAL Podiatry/Foot and [facility] Ankle Surgery CENTER [address] [place] [address] [facility] [place] [address] [place] [address] Referral ID Status Reason Start Date Expiration Date Visits V isits Requested Authorized LINUS/BC/LFOOT Closed 07/03/2016 06/10/2017 20 18 Encounter Details Date Type Department Care Team Description 07/14/2016 [facility] p v[place], left (Primary Dx); Rehabilitation PT Aftercare following surgery of the [facility] loskeletal system Services [facility] [address] [facility] [address] [place] [address] [place], [place] [address] Social History Tobacco Use Types Packs/Day Years [...] How often do you attend adventist or yazdanism Patient refused 08/08/2019 services? Do [...] Name Priority Date/Time Associated Diagnosis Comme nts [facility] NEUROMUSCULAR Routine 07/14/2016 10:49 AM Ankle pain , left RE-EDUCATION PAROLE BOARD MEMBER Aftercare following surgery of the musculoskeletal system [facility] THERAPEUTIC Routine 07/14/2016 10:49 AM Ankle pain, left EXERCISES PAROLE BOARD MEMBER Aftercare following surgery of the musculoskeletal system documented in this encounter Visit Diagnoses Diagnosis Ankle pain, left - Primary Pain in joint, ankle and foot Aftercare following surgery of the muscu loskeletal system Aftercare following surgery of the [facility] los[facility] system, NEC documented in this encounter Additional Health Concerns Assessment Noted Time PHQ-9 Depression Total Score: 11 05/02/2016 7:09 AM CS T documented as of this encounter Care Teams Coupon Collection Clerk Relationship Specialty Start Date End Date Vanda Guerrero MD PCP - General Internal Medicine 04/08/15 01/08/19 [address] [facility] [place] [address] documented as of this encounter
--- OUTSIDE RECORDS SUMMARY | 2022-02-06 10:17 | XMS_ITS | Encounter Summary ---
:1965 Author Organization [facility] Address [address] [place] [address] Care Team Providers Name Role Phone Vnada Guerrero MD Primary Care Provider [phone] Reason for Visit Reason Comments Pre-Op Exam Encounter Details Date Type Department Care Team Description 06/01/2016 Office Visit [facility] Noreen Corbett Preop gen eral physical exam (Primary Dx); Clinic [place]ino Mcneil MD Type 2 diabetes mellitus without complic ation, without long-term current use of insulin (H); [address] [facility] Injur y of peroneal tendon of left foot, subsequent encounter; [facility] Heart murm[address] [place] [address] [place] [phone] Social History Tobacco Use Types Packs/Day Years [...] How often do you attend mu-ism or samaritan Patient refused 08/08/2019 services? Do [...] Comments Blood Pressure 104/68 06/01/2016 10:14 AM CITY PLANT SUPERVISOR Pulse 72 06/01/2016 10:14 AM CITY PLANT SUPERVISOR Temperature - - Respiratory Rate - - Oxygen Saturation - - Inhaled Oxygen Concentration - - Weight 86.6 kg (191 lb) 06/01/2016 10:14 AM CITY PLANT SUPERVISOR Height - - Body Mass Index 34.93 05/16/2016 9:43 AM CITY PLANT SUPERVISOR documented in this encounter Patient Instructions [...] and have clean sheets on your bed. PLANT SUPERVISOR documented in this encounter Progress Notes Noreen Corbett MD - 06/01/2016 10:17 AM CST [address] [facility] [address] Dept: [phone] PRE-OP EVALUATION: Today's date: 06/01/2016 Megan Choi (: 1965) presents for pre-operative evaluation assessment as requested by Dr. Null. She requires evaluation and anesthesia risk assessment prior to undergoing surgery/procedure for treatment of left ankle . Proposed procedure: repair of tendon in left ankle Date of Surgery/ Procedure: 06/08/16 Time of Surgery/ Procedure: 10:10am Hospital/Surgical Facility: [facility] Primary Physician: Vanda Guerrero Type of [...] ??? Obesity 04/13/2008 ??? Family history of NE (myocardial infarction) 04/13/2008 At early age, father NE at age 40 Past Medical History Diagnosis [...] ??? fluticasone (FLONASE) 50 MCG/ACT nasal spray [place] 1-2 sprays into both nostrils daily 3 [...] cardiovascular risks for perioperative complications such as (NE, PE, VFib and 3?? AV Block): No [...] provided to requesting physician. Alejo Preop Guidelines PLANT SUPERVISOR documented in this encounter Nursing Notes Kallie [...] completed using cuff size: kait Blanco ma PLANT SUPERVISOR documented in this encounter Plan of Treatment Not on filedocumented as of this encounter Procedures Procedure Name Priority Date/Time Associated Diagnosis Comme nts EKG 12-LEAD Routine 06/01/2016 10:37 AM Preop general Results for this COMPLETE W/READ - CITY PLANT SUPERVISOR physical exam procedure are in CLINICS the results section. documented in this encounter Results EKG 12-lead complete w/read - Clinics (06/01/2016 10:37 AM CITY PLANT SUPERVISOR) Specimen (Source) Anatomical Collection Method Collection Time Re ceived Time Location / / Volume Laterality 06/01/2016 10:37 AM CITY PLANT SUPERVISOR Narrative This result has an attachment that [...] documented as of this encounter Care Teams Geometry Teacher Relationship Specialty Start Date End Date Vanda Guerrero MD PCP - General Internal Medicine 04/08/15 01/08/[address] [place] [address] documented as of this encounter
--- OUTSIDE RECORDS SUMMARY | 2022-02-06 10:17 | XMS_ITS | Encounter Summary ---
:1965 Author Organization [place] Address [address] [place] [address] Care Team Providers Name Role Phone Vanda Guerrero MD Primary Care Provider [phone] Reason for Visit [facility] Physical Therapy (Routine) - Closed Specialty Diagnoses / Procedures Referred By Contact Refer red To Contact Physical Therapy Diagnoses new pt needs paperwork post peroneal tendon repair surgery left foot. / Agatha Null DPM, Pod @ [facility] Agatha Null DPM, Candy Disla, PT Procedures EXTREMITY INITIAL Podiatry/Foot and [facility] Ankle Surgery CENTER [address] [place] [address] [facility] [address] [place] [address] [place] [address] Referral ID Status Reason Start Date Expiration Date Visits V isits Requested Authorized LINUS/BC/LFOOT Closed 07/03/2016 06/10/2017 20 18 Encounter Details Date Type Department Care Team Description 07/05/2016 [facility] ain, left (Primary Dx); Rehabilitation PT Aftercare following surgery of the [facility] loskeletal system Services [facility] [address] [facility] [address] [place] [address] [place], [place] [phone] [address] Social History Tobacco Use Types Packs/Day [...] How often do you attend baptist or restorationist Patient refused 08/08/2019 services? Do [...] Name Priority Date/Time Associated Diagnosis Comme nts [facility] NEUROMUSCULAR Routine 07/05/2016 12:44 PM Ankle pain , left RE-EDUCATION FISCAL SERVICES DIRECTOR Aftercare following surgery of the musculoskeletal system [facility] THERAPEUTIC Routine 07/05/2016 12:44 PM Ankle pain, left EXERCISES FISCAL SERVICES DIRECTOR Aftercare following surgery of the musculoskeletal system documented in this encounter Visit Diagnoses Diagnosis Ankle pain, left - Primary Pain in joint, ankle and foot Aftercare [facility] the [facility] Aftercare following [facility] of the [facility], NEC documented in this encounter Additional Health Concerns Assessment Noted Time PHQ-9 Depression Total Score: 11 05/02/2016 7:09 AM CS T documented as of this encounter Care Teams Statue Maker Relationship Specialty Start Date End Date Vanda Guerrero MD PCP - General Internal Medicine 04/08/15 01/08/[address] [facility] [place] [address] documented as of this encounter
--- OUTSIDE RECORDS SUMMARY | 2022-02-06 10:17 | XMS_ITS | Encounter Summary ---
:1965 Author Organization [place] Address [address] [place] [address] Care Team Providers Name Role Phone Vanda Guerrero MD Primary Care Provider [phone] Reason for Visit Auth/Cert Specialty Diagnoses / Procedures Referred By Contact Refer red To Contact Surgery Diagnoses Peroneal Tendon tear Rh Periop Services Procedures REPAIR TENDON PERONEAL [address] [place], [place] [address] Fax: Referral ID Status Reason Start Date Expiration Date Visits Requ ested Visits Authorized [id number] 1 1 Encounter Details Date Type Department Care Team Description 06/08/2016 Surgery [facility] Agatha Null DPM, Le ft peroneal tendon [facility] Podiatry/Foot and repair and transfer [address] [facility] [place] [address] [place] [phone] [facility] [address] [place], [place] [address] (Wo rk) Surgery Details [...] How often do you attend mormonism or cheondoism Patient refused 08/08/2019 services? Do [...] Comments Blood Pressure 156/103 06/08/2016 11:20 AM [employer]SEAMER Pulse - - Temperature 36.6 ??C (97.9 ??F) 06/08/2016 11:15 AM [employer] Respiratory Rate 20 06/08/2016 11:20 AM [employer]ER Oxygen Saturation 100% 06/08/2016 11:20 AM [employer]ER Inhaled Oxygen Concentration - - Weight 87.1 kg (192 lb 1.6 oz) 06/08/2016 8:52 AM [employer] Height 157.5 cm (5' 2) 06/08/2016 8:52 AM [employer] Body Mass Index 35.14 06/08/2016 8:52 AM [employer]AMER documented in this encounter Discharge Instructions Discharge [...] take any ibuprofen products until 3:15 pm. [employer]SEAMER documented in this encounter Medications at Time [...] without long-term current use of insulin (H) AJY NOT PRESCRIBED, JAY Inhibitor not 0 each [...] or female climacteric states fluticasone (FLONASE) 50 [place] 1-2 sprays 3 Bottle 3 05/0306/12/2017 MCG/ACT [...] days available in the hospital surgical encounter. [employer] Source Note - Noreen Corbett MD - 06/01/2016 10:17 AM [employer]SEAMER [address] [facility] [address] Dept: [phone] PRE-OP EVALUATION: Today's date: 06/01/2016 Megan Choi (: 1965) presents for pre-operative evaluation assessment as requested by Dr. Null. She requires evaluation and anesthesia risk assessment prior to undergoing surgery/procedure for treatment of left ankle . Proposed procedure: repair of tendon in left ankle Date of Surgery/ Procedure: 06/08/16 Time of Surgery/ Procedure: 10:10am Hospital/Surgical Facility: [facility] Primary Physician: Vanda Guerrero Type of Anesthesia [...] ??? Obesity 04/13/2008 ??? Family history of CT (myocardial infarction) 04/13/2008 At early age, father CT at age 38 Past Medical History Diagnosis [...] ??? fluticasone (FLONASE) 50 MCG/ACT nasal spray [place] 1-2 sprays into both nostrils daily 3 [...] cardiovascular risks for perioperative complications such as (CT, PE, VFib and 3?? AV Block): No [...] evaluation report is provided to requesting physician. [place] Preop Guidelines [employer] documented in this encounter Nursing Notes Hortencia Sawyer, RN - 06/08/2016 12:26 PM CST Pharmacy [facility] called. Prescription question. Clarified with MD. Will receive the Enoxaparin 100mg/1mlwill give same dose just changing the dispensing container. V. O. Dr Karthik Null [employer] documented in this encounter Miscellaneous Notes Op [...] EM#[id number] Name: MEGAN CHOI MRN: [id number] Account: [id number] : 1965 Procedure Date: 06/08/2016 Document: [id number] [employer] Brief Op Note - Agatha Null DPM, Podiatry/Foot and Ankle Surgery - 06/08/2016 11:19 AM CST [facility] Brief Operative Note Pre-operative diagnosis: Peroneal [...] AM Post-operative st ate Results for this [employer]ER procedure are i n the results section. SURGICAL PATHOLOGY Routine 06/08/2016 10:40 AM Re sults for this EXAM [employer] procedure are i n the results section. REPAIR, TENDON, 06/08/2016 9:59 AM Peroneal Tendon tea r PERONEAL [employer] Special Needs 5'2 / 191# stated POTASSIUM STAT 06/08/2016 9:20 AM [employer]ER Resul ts for this procedure are i n the results section . CREATININE STAT 06/08/2016 9:20 AM [employer]ER Resul ts for this procedure are i n the results section . GLUCOSE BY METER Routine 06/08/2016 8:58 AM [employer]ER R esults for this procedure are i n the results section . PATHOLOGY RESULT - HIM 06/08/2016 12:00 AM [employer]ER SCAN documented in this encounter Results (ABNORMAL) Glucose by meter (06/08/2016 11:52 AM [employer]SEAMER) P athologist Signature Glucose 159 (H) 70 - 99 POINT OF CARE mg/dL TEST, GLUCOSE Specimen Anatomical Collection Method Collection Time Receive d Time (Source) Location / / Volume Laterality 06/08/2016 11:52 06/08/2016 AM [employer] 11:55 AM [employer]ER Aagtha Null DPM, Podiatry/Foot and Ankle Surgery LAB - [facility] POCT Performing Organization Address City/State/ZIP Code Phon e Number FV POINT OF CARE TEST, GLUCOSE POINT OF CARE TEST, GLUCOSE Surgical pathology exam (06/08/2016 10:40 AM CH[employer]SEAMER) Component Value Ref Test Analysis Performed At [facility] Range Method Time Signature Copath Report Patient Name: MEGAN CHOI MR#: [id number] Specimen #: [id number] Collected: 06/08/2016 Received: 06/08/2016 Reported: 06/09/2016 11:56 [...] is no in flammation. CPT Codes: A: 61350-OF1, 63063-RCX TESTING LAB LOCATION: [address] ??[address] COLLECTION SITE: Client: [facility] Location: RHOR (R) Specimen (Source) Anatomical Collection Method Collection Time Re ceived Time Location / / Volume Laterality Tissue specimen STRUCTURE OF LEFT 06/08/2016 10:40 (specimen) FOOT / Unknown AM [employer] Comment: Left foot tendon for Gross exam ination Agatha J Chaka DPM, Podiatry/Foot and Ankle Surgery LAB - [facility] Performing Organization Address City/State/ZIP Code Phon e Number [place] Creatinine (06/08/2016 9:20 AM CH[employer]ER) athologist Signature Creatinine 0.74 0.52 - 1.04 [place] mg/dL [facility] GFR Estimate 82 >60 [place] mL/min/1.7m [address] Comment: Non GFR Calc GFR Estimate If Black >90 >60 mL/min/1.7m2 F [facility] GFR Calc HOSP ITAL Specimen Anatomical Collection Method Collection Time Receive d Time (Source) Location / / Volume Laterality Blood specimen 06/08/2016 9:20 AM 016 9:24 (specimen) [employer]ER AM [employer]ER Dusty Sanchez MD LAB - BLOOD ORDERABLES Performing Organization Address City/[facility]/ZIP Code Phon e Number M [facility] [address] [place], [place] [address] [facility] [address] [address] 7, [facility] [phone] Potassium (06/08/2016 9:20 AM CH[employer] OUTSEAMER) athologist [facility] Potassium 3.8 3.4 - 5.3 [facility] mmol/L [facility] Specimen Anatomical Collection Method Collection Time Receive d Time (Source) Location / / Volume Laterality Blood specimen 06/08/2016 9:20 AM 016 9:24 (specimen) [employer]ER AM [employer]ER Dusty Sanchez MD LAB - BLOOD ORDERABLES Performing Organization Address City/[facility]/ZIP [facility] Phon e Number M [facility] [address] [place], [place] [address] [facility] [address] [address], [facility] [phone] (ABNORMAL) Glucose by meter (06/08/2016 8:58 AM [employer]SEAMER) athologist Signature Glucose 136 (H) 70 - 99 POINT OF CARE mg/dL TEST, GLUCOSE Specimen Anatomical Collection Method Collection Time Receive d Time (Source) Location / / Volume Laterality 06/08/2016 8:58 AM 6 9:00 [employer]AMER AM [employer]ER Agatha Null DPM, Podiatry/Foot and Ankle Surgery LAB - [facility] POCT Performing Organization Address City/State/ZIP Code Phon e Number FV POINT OF CARE TEST, GLUCOSE POINT OF CARE TEST, GLUCOSE PATHOLOGY RESULT - HIM SCAN (06/08/2016 12:00 AM CH[employer]SEAMER) Specimen (Source) Anatomical Location Collection Method / [...] 11:01 10 mLs Operative EPINEPHrine 1:200,000 AM [employer]SEAMER Sit e/Surgical Site injection PRN, Starting on Elda 06/08/16 at 1101, Intra-procedure oxyCODONE (ROXICODONE) IR tablet 5-10 mg Given 06/08/2016 12:23 PM [employer]ER 5 mg 5-10 mg, Oral, ONCE PRN, moderate to severe pain, Starting on Elda 06/08/16 at 1107, For 1 dose, One time prior to discharge., Post-procedure documented in this encounter Active and Recently Administered Medications Times are shown in [employer]ER. Scheduled Medication Order 06/06/2016 06/07/2016 06/08/2016 ceFAZolin [...] as of this encounter Care Teams Body Corporate Manager Relationship Specialty Start Date End Date Vanda Guerrero MD PCP - General Internal Medicine 04/08/15 01/08/19 [address] [facility] [place] [id number] documented as of this encounter
--- OUTSIDE RECORDS SUMMARY | 2022-02-06 10:17 | XMS_ITS | Encounter Summary ---
:1965 Author Organization [place] Address [address] [place] [address] Care Team Providers Name Role Phone Vanda Guerrero MD Primary Care Provider [phone] Vanda Guerrero MD Unavailable Reason for Visit [facility] Physical Therapy (Routine) - Closed Specialty Diagnoses / Procedures Referred By Contact Refer red To Contact Physical Therapy Diagnoses new pt needs paperwork post peroneal tendon repair surgery left foot. / Agatha Null DPM, Pod @ Cr Podiatry Agatha Null DPM, Candy Disla, PT Procedures EXTREMITY INITIAL Podiatry/Foot and [facility] Ankle Surgery CENTER [address] [place] [address] [place] [address] [place] [address] Referral ID Status Reason Start Date Expiration Date Visits V isits Requested Authorized LINUS/BC/LFOOT Closed 07/03/2016 06/10/2017 20 18 Encounter Details Date Type Department Care Team Description 07/24/2016 [facility]le p ain, left; Rehabilitation PT Aftercare following surgery of the [facility] Services [facility] [address] [facility] [address] [place] [address] [place], [place] [phone] [address] Social History Tobacco Use Types Packs/Day [...] 07/24/2016 1:51 PM Ankle pain, left 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
--- OUTSIDE RECORDS SUMMARY | 2022-02-06 10:17 | XMS_ITS | Encounter Summary ---
:1965 Author Organization [place] Address [address] [place] [address] Care Team Providers Name Role Phone Vanda Borja MD Primary Care Provider [phone] Vanda Borja MD Unavailable Reason for Referral Med Therapy Management - Closed Specialty Diagnoses / Procedures Referred By Contact Refer red To Contact Diagnoses Fatigue, unspecified type Type 2 diabetes mellitus without complication, without long-term current use of insulin (H) Fibromyalgia Chronic pain of left ankle Vanda Borja MD [address] [place] [address] Referral ID Status Reason Start Date Expiration Date Visits Requ ested Visits Authorized [id number] Closed 09/25/2016 09/25/2017 1 1 Reason for Visit Reason Comments Diabetes Encounter Details Date Type Department Care Team Description 09/25/2016 Office Visit [facility] Vanda Borja Type 2 diabetes mellitus without complication, without long-term current use of insulin (H) (Primary Dx); Clinic Pino Toribio MD Moderate episode of recurrent major depr essive disorder (H); [address] [place] [address] Fibro myalgia; [facility] Chronic pain of left ankle; [address] [place] [address] Family history of [place] (myocardial infarct ion); [place] [address] Atypical chest pain; [phone] Fatigue, unspecified type; Seasonal allerg ic rhinitis [...] How often do you attend mandaen or spiritism Patient refused 08/08/2019 services? Do [...] to set up a stress test in [place], the other to set up a visit [...] MANAGE REFERRAL G89.29 5. Family history of VT (myocardial infarction) Z82.49 NM Exercise stress test [...] measures. See Patient Instructions Vanda Borja MD [facility] [place] [facility] documented in this encounter Nursing [...] D 33 20 - 75 02/19/2017 [facility] ug/L 2:25 PM CDT [place] [facility] Comment: Season, race, dietary intake, and treatm ent affect the concentration of 91-ujtumva-Evzczvo D. Values may decreas e during winter [...] Phon e Number [facility] [address] [place], [place] [id number] [place] [address] (ABNORMAL) Comprehensive metabolic panel (02/17/2017 9:13 AM CDT) Analysis Performed At Patho logist Time Signature Sodium 145 (H) 133 - 144 02/17/2017 [place] mmol/L 2:14 PM CDT [facility] Potassium 3.9 3.4 - 5.3 02/17/2017 [place] mmol/L 2:14 PM CDT [facility] Chloride 111 (H) 94 - 109 02/17/2017 [facility] mmol/L 2:14 PM CDT [facility] Carbon Dioxide 28 20 - 32 02/17/2017 [place] mmol/L 2:14 PM [facility] Anion Gap 6 3 - 14 02/17/2017 [place] mmol/L 2:14 PM [facility] Glucose 137 (H) 70 - 99 02/17/2017 [place] mg/dL 2:14 PM [facility] Comment: Fasting specimen Urea Nitrogen 12 7 - 30 mg/dL 02/17/2017 2:14 PM CDT [facility] Creatinine 0.75 0.52 - 1.04 mg/dL 02/17/2017 2:14 PM CD T [facility] GFR Estimate 80 >60 mL/min/1.7m2 02/17/2017 2:14 PM C DT [facility] Comment: Non GFR Calc GFR Estimate If >90 >60 mL/min/1.7m2 02/17/2017 2:[address] [facility] [place] [facility] Black [facility] Comment: GFR Calc Calcium 9.1 8.5 - 10.1 02/17/2017 2:14 PM [facility] LINICS mg/dL [facility] Bilirubin Total 0.5 0.2 - 1.3 02/17/2017 2:14 PM [facility] IEW CLINICS mg/dL [facility] Albumin 3.5 3.4 - 5.0 g/dL 02/17/2017 2:14 PM [facility] Protein Total 7.3 6.8 - 8.8 g/dL 02/17/2017 2:14 PM FA [facility] Alkaline Phosphatase 169 (H) 40 - 150 U/L 02/17/2017 2:14 PM [facility] ALT 32 0 - 50 U/L 02/17/2017 2:14 PM [facility] LINICS [facility] AST 17 0 - 45 U/L 02/17/2017 2:14 PM [facility] LINICS [facility] Specimen Anatomical Collection Method Collection Time Receive d Time (Source) Location / / Volume Laterality Blood specimen 02/17/2017 9:13 AM 017 9:18 (specimen) CDT AM CDT Vanda Borja MD LAB - BLOOD ORDERABLES Performing Organization Address City/State/ZIP Code Phon e Number [facility] [address] [place] [address] Hepatitis C Screen Reflex to HCV RNA Quant and Genotype (09/25/2016 2:30 PM CDT) Component Value Ref Test Analysis Performed At [facility] gist Range Method Time Signature Hepatitis C Nonreactive NR [facility] Antibody Assay performance character istics have not been established for [facility], [place] MEDICAL infants, and children [facility] Specimen Anatomical Collection Method Collection Time Receive d Time (Source) Location / / Volume Laterality Blood specimen 09/25/2016 2:30 PM 017 (specimen) CDT 11:29 AM CDT Vanda Borja MD LAB - BLOOD ORDERABLES Performing Organization Address City/[facility]/ZIP Code Phon e Number [facility] [address] [place] [address] [facility] CBC with platelets (09/25/2016 2:30 PM CDT) [...] LAB - BLOOD ORDERABLES Performing Organization Address City/[facility]/ZIP Code Phon e Number [facility] [address] [place] [address] TSH with free T4 reflex (09/25/2016 2:30 PM CDT) athologist Signature TSH 1.80 0.40 - 4.00 [facility] [place] [facility] mU/L [facility] Specimen Anatomical Collection Method Collection Time Receive d Time (Source) Location / / Volume Laterality Blood specimen 09/25/2016 2:30 PM 017 2:31 (specimen) CDT PM CDT Vanda Borja MD LAB - BLOOD ORDERABLES Performing Organization Address City/State/ZIP Code Phon e Number [facility] [address] [place] [address] Vitamin D Deficiency (09/25/2016 2:30 PM CDT) athologist Signature Vitamin D 25 20 - 75 [facility] Deficiency ug/L [place] [facility] Comment: Season, race, dietary intake, and treatm ent affect the concentration of 37-jryeelk-Qevnuyj D. Values may decrea se during winter [...] Phon e Number [facility] [address] [place] [address] [facility] Hemoglobin A1c (09/25/2016 2:30 PM CDT) athologist Signature Hemoglobin A1C 5.9 4.3 - 6.0 [facility] Specimen Anatomical Collection Method Collection Time Receive d Time (Source) Location / / Volume Laterality Blood specimen 09/25/2016 2:30 PM 017 2:31 (specimen) CDT PM CDT Vanda Borja MD LAB - BLOOD ORDERABLES Performing Organization Address City/State/ZIP Code Phon e Number [address] [address] (ABNORMAL) Comprehensive metabolic panel (09/25/2016 2:30 PM CDT) [facility] Method Time Signature Sodium 148 (H) 133 - 144 [place] mmol/L [facility] Potassium 4.5 3.4 - 5.3 [place] mmol/L [facility] Chloride 113 (H) 94 - 109 [place] mmol/L [facility] Carbon Dioxide 26 20 - 32 [place] mmol/L [facility] Anion Gap 9 3 - 14 [place] mmol/L [facility] Glucose 100 (H) 70 - 99 [place] mg/dL [facility] Urea Nitrogen 13 7 - 30 [place] mg/dL [facility] Creatinine 0.72 0.52 - [place] 1.04 mg/dL [facility] GFR Estimate 85 >60 [place] mL/min/1.7 CLINICS m2 [facility] Comment: Non GFR Calc GFR Estimate If Black >90 >60 mL/min/1.7m2 F [facility] GFR Calc BLOO [facility] Calcium 9.3 8.5 - 10.1 mg/dL [place] CLIN ICS [facility] Bilirubin Total 0.2 0.2 - 1.3 mg/dL [facility] Albumin 3.7 3.4 - 5.0 g/dL [facility] S [facility] Protein Total 7.4 6.8 - 8.8 g/dL [place] CL INICS [facility] Alkaline Phosphatase 165 (H) 40 - 150 U/L [facility] ALT 28 0 - 50 U/L [facility] AST 17 0 - 45 U/L [facility] Specimen Anatomical Collection Method Collection Time Receive d Time (Source) Location / / Volume Laterality Blood specimen 09/25/2016 2:30 PM 017 2:31 (specimen) CDT PM CDT Vanda Borja MD LAB - BLOOD ORDERABLES Performing Organization Address City/State/ZIP Code Phon e Number [facility] [address] [place] [address] Albumin Random Urine Quantitative (09/25/2016 2:30 PM CDT) P athologist Signature Creatinine 128 mg/dL [place] Urine [facility] Albumin Urine 8 mg/L [place] mg/L [facility] Albumin Urine 5.96 0 - 25 [place] mg/g Cr mg/g Cr [facility] Specimen Anatomical Collection Method Collection Time Receive d Time (Source) Location / / Volume Laterality Urine specimen 09/25/2016 2:30 PM 017 2:31 (specimen) CDT PM CDT Vanda Borja MD LAB - URINE ORDERABLES Performing Organization Address City/State/ZIP Code Phon e Number [facility] [address] [place] [address] [phone] [facility] [address] [place] [address], [facility] [phone] documented in this encounter Visit Diagnoses Diagnosis Type 2 diabetes mellitus without complic ation, without long-term current use of insulin (H) - Primary Moderate episode of recurrent major depr essive disorder (H) Fibromyalgia Mylagia and myositis, unspecified Chronic pain of left ankle Family history of VT (myocardial infarct ion) [...] documented as of this encounter Care Teams Principal Cyber Engineer Relationship Specialty Start Date End Date Vanda Borja MD PCP - General Internal Medicine 04/08/15 01/08/19 [address] [place] [address] Vanda Borja MD PCP - Assigned PCP 07/24/16 06/15/18 [address] [place] [address] documented as of this encounter
--- OUTSIDE RECORDS SUMMARY | 2022-02-06 10:17 | XMS_ITS | Encounter Summary ---
:1965 Author Organization [place] Address [address] [place] [address] Care Team Providers Name Role Phone Vanda Guerrero MD Primary Care Provider [phone] Vanda Guerrero MD Unavailable Reason for Visit [facility] Physical Therapy (Routine) - Closed Specialty Diagnoses / Procedures Referred By Contact Refer red To Contact Physical Therapy Diagnoses new pt needs paperwork post peroneal tendon repair surgery left foot. / Agatha Null DPM, Pod @ Cr Podiatry Agatha Null DPM, Candy Disla, PT Procedures EXTREMITY INITIAL Podiatry/Foot and [facility] Ankle Surgery CENTER [address] [place] [address] [place] [address] [place] [address] Referral ID Status Reason Start Date Expiration Date Visits V isits Requested Authorized LINUS/BC/LFOOT Closed 07/03/2016 06/10/2017 20 18 Encounter Details Date Type Department Care Team Description 09/01/2016 [facility], [facility]; Rehabilitation PT Aftercare following surgery of the [facility] Services [facility] [address] [facility] [address] [place] [address] [place], [place] [phone] [address] Social History Tobacco Use Types Packs/Day [...] How often do you attend denominational or jew Patient refused 08/08/2019 services? Do [...] as of this encounter Care Teams Test Driller Relationship Specialty Start Date End Date Vanda Guerrero MD PCP - General Internal Medicine 04/08/15 01/08/19 [address] [facility] [place] [address] Vanda Guerrero MD PCP - Assigned PCP 07/24/16 06/15/[address] [place] [address] [place] [id number] documented as of this encounter
--- OUTSIDE RECORDS SUMMARY | 2022-02-06 10:17 | XMS_ITS | Encounter Summary ---
:1965 Author Organization [place] Address [address] [place] [address] Care Team Providers Name Role Phone Vanda Guerrero MD Primary Care Provider [phone] Vanda Guerrero MD Unavailable Reason for Visit LINUS Physical Therapy (Routine) - Closed Specialty Diagnoses / Procedures Referred By Contact Refer red To Contact Physical Therapy Diagnoses new pt needs paperwork post peroneal tendon repair surgery left foot. / Agatha Null DPM, Pod @ Cr Podiatry Agatha Null DPM, Candy Disla, PT Procedures EXTREMITY INITIAL Podiatry/Foot and [facility] [address] [place] [address] [place] [address] [place] [address] Referral ID Status Reason Start Date Expiration Date Visits V isits Requested Authorized LINUS/BC/LFOOT Closed 07/03/2016 06/10/2017 20 18 Encounter Details Date Type Department Care Team Description 08/04/2016 [facility], left; Rehabilitation PT Aftercare following surgery of the [facility] system Services [facility] [address] [place] [address] [place], [place] [phone] [address] Social History Tobacco Use Types Packs/Day [...] How often do you attend restoration or sabianism Patient refused 08/08/2019 services? 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 Aftercare following surgery of the musculoskeletal system documented in this encounter Visit Diagnoses Diagnosis Ankle pain, left Pain in joint, ankle and foot Aftercare following surgery of the muscu loskeletal system Aftercare following surgery of the [facility], NEC documented in this encounter Additional Health Concerns Assessment Noted Time PHQ-9 Depression Total Score: 11 05/02/2016 7:09 AM CS T documented as of this encounter Care Teams Budget Counselor Relationship Specialty Start Date End Date Vanda Guerrero MD PCP - General Internal Medicine 04/08/15 01/08/19 [address] [facility] [place] [id number] Vanda Guerrero MD PCP - Assigned PCP 07/24/16 06/15/[address] [place] [address] [place] [id number] documented as of this encounter
--- OUTSIDE RECORDS SUMMARY | 2022-02-06 10:17 | XMS_ITS | Encounter Summary ---
:1965 Author Organization [place] Address [address] [place] [address] Care Team Providers Name Role Phone Vanda Guerrero MD Primary Care Provider [phone] Vanda Guerrero MD Unavailable Reason for Visit Reason Onset Date Comments Refill Request 08/17/2016 DULOXETINE 30MG Encounter Details Date Type Department Care Team Description 08/17/[address] [facility] Vanda Guerrero R efill Request Clinic [facility] [facility] (DULOXETINE 30MG) [address] [facility] [address] [place] [address] [place] [phone] Social History Tobacco Use Types Packs/Day Years [...] often do you attend latter day or taoist Patient refused 08/08/2019 services? Do [...] 08/18/2016 10:01 AM CST Prescription approved per [facility] Refill Protocol. Kirsten Casillas RN Triage Nurse HEADER Telephone Encounter - Marisa Matthew - 08/17/2016 11:01 AM CST DULOXETINE 30MG Last Written Prescription Date: 11/09/2015 Last Fill Quantity: 180, # refills: 2 Last Office Visit with [facility], [facility] or [facility] prescribing provider: 06/01/2016 BP Readings from Last 3 Encounters: 08/15/16 114/74 07/18/16 118/78 07/13/16 112/68 Pulse: (for Fetzima) Creatinine Date Value Ref Range Status 06/08/2016 0.74 0.52 - 1.04 mg/dL Final ] Last PHQ-9 score on record= PHQ-9 SCORE 05/01/2016 Total Score - Total Score MyChart 11 (Moderate depression) Total Score - HEADER documented in this encounter Plan of Treatment Not on filedocumented as of this encounter Visit Diagnoses Diagnosis Fibromyalgia Mylagia and myositis, unspecified documented in this encounter Additional Health Concerns Assessment Noted Time PHQ-9 Depression Total Score: 11 05/02/2016 7:09 AM CS T documented as of this encounter Care Teams Custom Car Builder Relationship Specialty Start Date End Date Vanda Guerrero MD PCP - General Internal Medicine 04/08/15 01/08/[address] [place] [address] [place] [id number] Vanda Guerrero MD PCP - Assigned PCP 07/24/16 06/15/[address] [place] [address] [place] [id number] documented as of this encounter
--- OUTSIDE RECORDS SUMMARY | 2022-02-06 10:17 | XMS_ITS | Encounter Summary ---
:1965 Author Organization [place] Address [address] [place] [address] Care Team Providers Name Role Phone Vanda Guerrero MD Primary Care Provider [phone] Reason for Visit Reason Onset Date Comments Refill Request 06/05/2016 Zanaflex Encounter Details Date Type Department Care Team Description 06/05/2016 [facility]ill [facility] [place] Vanda Guerrero R efill Request Clinic [place] (Zanaflex) [address] [facility] [address] [place] [address] [place] [phone] Social History Tobacco Use Types Packs/Day Years [...] How often do you attend advent or christian Patient refused 08/08/2019 services? Do [...] Nicole Magana RN - 06/05/2016 1:16 PM FISHING MANAGER Zanaflex Last Written Prescription Date: 12/31/2015 Last Fill Quantity: 90 tablet, # refills: 5 Last Office Visit with [facility], [facility] or [facility] prescribing provider: 06/01/2016 with AF (pre-op) Future Office visit: Next 5 appointments (look out 90 days) Jun 13, 2016 10:00 AM Return Visit with Agatha Null DPM, Pod [facility] [address] [place] [phone] Routing refill request to provider for review/approval because: Drug not on the [facility], [facility] or [facility] refill protocol or controlled substance Nicole Magana, RN, BSN, PHN ING MANAGER documented in this encounter Plan of Treatment Not on filedocumented as of this encounter Visit Diagnoses Diagnosis Cervicalgia - Primary History of fusion of cervical spine Arthrodesis status History of lumbar fusion documented in this encounter Additional Health Concerns Assessment Noted Time PHQ-9 Depression Total Score: 11 05/02/2016 7:09 AM CS T documented as of this encounter Care Teams Senior Informatica Developer Relationship Specialty Start Date End Date Vanda Guerrero MD PCP - General Internal Medicine 04/08/15 01/08/19 [address] [facility] [place] [id number] documented as of this encounter
--- OUTSIDE RECORDS SUMMARY | 2022-02-06 10:17 | XMS_ITS | Encounter Summary ---
:1965 Author Organization [facility] Address [address] [place] [address] Care Team Providers Name Role Phone Vanda Guerrero MD Primary Care Provider [phone] Reason for Visit Auth/Cert Specialty Diagnoses / Procedures Referred By Contact Refer red To Contact Surgery Diagnoses Peroneal Tendon tear Rh Periop Services Procedures REPAIR TENDON PERONEAL [address] [place], [place] [address] Fax: Referral ID Status Reason Start Date Expiration Date Visits Requ ested Visits Authorized [id number] 1 1 Encounter Details Date Type Department Care Team Description 06/08/2016 Hospital Encounter [facility] Agatha Nieves P ost-operative state (Primary Dx); [place] PreOP/PostOP DPM, Peroneal tendon tear, left, subsequent encounter; [address] Podiatry/Foot and Type 2 diabetes mellitus wit hout complication, without long- term current use of insulin (H) [place], [place] Ankle Surgery [phone] [place] [phone] [address] [place], [place] [phone] Social History Tobacco Use Types Packs/Day Years [...] How often do you attend sabianism or restoration Patient refused 08/08/2019 services? Do you belong to any clubs or organizations such as No 08/08/2019 sabianism groups, Teraminds, fraternal or athletic groups, or school groups? [...] Comments Blood Pressure 122/69 06/08/2016 1:00 PM STEVEDORING SUPERINTENDENT Pulse - - Temperature 36.8 ??C (98.2 ??F) 06/08/2016 1:00 PM STEVEDORING SUPERINTENDENT Respiratory Rate 16 06/08/2016 12:59 PM STEVEDORING SUPERINTENDENT Oxygen Saturation 95% 06/08/2016 1:20 PM STEVEDORING SUPERINTENDENT Inhaled Oxygen Concentration - - Weight 87.1 kg (192 lb 1.6 oz) 06/08/2016 8:52 AM STEVEDORING SUPERINTENDENT Height 157.5 cm (5' 2) 06/08/2016 8:52 AM STEVEDORING SUPERINTENDENT Body Mass Index 35.14 06/08/2016 8:52 AM STEVEDORING SUPERINTENDENT documented in this encounter Discharge Instructions Discharge [...] take any ibuprofen products until 3:15 pm. EDORING SUPERINTENDENT documented in this encounter Medications at Time [...] or female climacteric states fluticasone (FLONASE) 50 [place] 1-2 sprays 3 Bottle 3 05/0306/12/2017 MCG/ACT [...] days available in the hospital surgical encounter. EDORING SUPERINTENDENT Source Note - Noreen Corbett MD - 06/01/2016 10:17 AM STEVEDORING SUPERINTENDENT [place] [id number] [facility] [address] [facility] [address] Dept: [phone] PRE-OP EVALUATION: Today's date: 06/01/2016 Megan Wong (: 1965) presents for pre-operative evaluation assessment as requested by Dr. Nieves. She requires evaluation and anesthesia risk assessment prior to undergoing surgery/procedure for treatment of left ankle . Proposed procedure: repair of tendon in left ankle Date of Surgery/ Procedure: 06/08/16 Time of Surgery/ Procedure: 10:10am Hospital/Surgical Facility: [facility] Primary Physician: Vanda Guerrero Type of [...] ??? Obesity 04/13/2008 ??? Family history of OK (myocardial infarction) 04/13/2008 At early age, father OK at age 40 Past Medical History Diagnosis [...] ??? fluticasone (FLONASE) 50 MCG/ACT nasal spray [place] 1-2 sprays into both nostrils daily 3 [...] cardiovascular risks for perioperative complications such as (OK, PE, VFib and 3?? AV Block): No [...] evaluation report is provided to requesting physician. [facility] Preop Guidelines EDORING SUPERINTENDENT documented in this encounter Nursing Notes Hortencia Sawyer, RERE - 06/08/2016 12:26 PM CST Pharmacy [facility] called. Prescription question. Clarified with MD. Will receive the Enoxaparin 100mg/1mlwill give same dose just changing the dispensing container. V. O. Dr Karthik Nieves EDORING SUPERINTENDENT documented in this encounter Miscellaneous Notes Op [...] DPM MT: [id number] Name: MEGAN WONG Account: [id number] : 1965 Procedure Date: 06/08/2016 Document: [id number] EDORING SUPERINTENDENT Brief Op Note - Agatha Nieves DPM, Podiatry/Foot and Ankle Surgery - 06/08/2016 11:19 AM CST [facility] Brief Operative Note Pre-operative diagnosis: Peroneal [...] AM Post-operative st ate Results for this STEVEDORING SUPERINTENDENT procedure are i n the results section. SURGICAL PATHOLOGY Routine 06/08/2016 10:40 AM Re sults for this EXAM STEVEDORING SUPERINTENDENT procedure are i n the results section. REPAIR, TENDON, 06/08/2016 9:59 AM Peroneal Tendon tea r PERONEAL STEVEDORING SUPERINTENDENT Special Needs 5'2 / 191# stated POTASSIUM STAT 06/08/2016 9:20 AM STEVEDORING SUPERINTENDENT Resul ts for this procedure are i n the results section . CREATININE STAT 06/08/2016 9:20 AM STEVEDORING SUPERINTENDENT Resul ts for this procedure are i n the results section . GLUCOSE BY METER Routine 06/08/2016 8:58 AM STEVEDORING SUPERINTENDENT R esults for this procedure are i n the results section . PATHOLOGY RESULT - HIM 06/08/2016 12:00 AM STEVEDORING SUPERINTENDENT SCAN documented in this encounter Results (ABNORMAL) Glucose by meter (06/08/2016 11:52 AM STEVEDORING SUPERINTENDENT) P athologist Signature Glucose 159 (H) 70 - 99 POINT OF CARE mg/dL TEST, GLUCOSE Specimen Anatomical Collection Method Collection Time Receive d Time (Source) Location / / Volume Laterality 06/08/2016 11:52 06/08/2016 AM STEVEDORING SUPERINTENDENT 11:55 AM STEVEDORING SUPERINTENDENT Agatha Nieves DPM, Podiatry/Foot and Ankle [facility] PO[facility] Performing Organization Address City/State/ZIP Code Phon e Number FV POINT OF CARE TEST, GLUCOSE POINT OF CARE TEST, GLUCOSE Surgical pathology exam (06/08/2016 10:40 AM STEVEDORING SUPERINTENDENT) Component Value Ref Test Analysis Performed At [facility] gist Range Method Time Signature Copath Report Patient Name: MEGAN WONG MR#: [id number] Specimen #: [id number] Collected: 06/08/2016 Received: 06/08/2016 Reported: 06/09/2016 11:56 [...] is no in flammation. CPT Codes: A: 76528-DB4, 13730-HVA TESTING LAB LOCATION: [address] ??[address] COLLECTION SITE: Client: [facility] Location: RHOR (R) Specimen (Source) Anatomical Collection Method Collection Time Re ceived Time Location / / Volume Laterality Tissue specimen STRUCTURE OF LEFT 06/08/2016 10:40 (specimen) FOOT / Unknown AM STEVEDORING SUPERINTENDENT Comment: Left foot tendon for Gross exam ination Agatha SHEPHERDM, Podiatry/Foot and Ankle Surgery LAB - [place] Performing Organization Address City/State/ZIP Code Phon e Number [place] Creatinine (06/08/2016 9:20 AM STEVEDORING SUPERINTENDENT) P athologist Signature Creatinine 0.74 0.52 - 1.04 [place] mg/dL [facility] GFR Estimate 82 >60 [place] mL/min/1.7m [address] Comment: Non GFR Calc GFR Estimate If Black >90 >60 mL/min/1.7m2 F [facility] GFR Calc HOSP ITAL Specimen Anatomical Collection Method Collection Time Receive d Time (Source) Location / / Volume Laterality Blood specimen 06/08/2016 9:20 AM 016 9:24 (specimen) STEVEDORING SUPERINTENDENT AM STEVEDORING SUPERINTENDENT Dusty Sanchez MD LAB - BLOOD ORDERABLES Performing Organization Address City/[facility]/ZIP [facility] Phon e Number [facility] [address] [place], [place] [address] [place] [address] [address] [place], [place] [address], [facility] [phone] Potassium (06/08/2016 9:20 AM STEVEDORING SUPERINTENDENT) athologist Signature Potassium 3.8 3.4 - 5.3 [facility] mmol/L HOSPITAL Specimen Anatomical Collection Method Collection Time Receive d Time (Source) Location / / Volume Laterality Blood specimen 06/08/2016 9:20 AM 016 9:24 (specimen) STEVEDORING SUPERINTENDENT AM STEVEDORING SUPERINTENDENT Dusty Sanchez MD LAB - BLOOD ORDERABLES Performing Organization Address City[facility]/ZIP [facility] Phon e Number [facility] [address] [place], [place] [address] [place] [address] [place], [place] [address], [facility] [phone] (ABNORMAL) Glucose by meter (06/08/2016 8:58 AM STEVEDORING SUPERINTENDENT) P athologist Signature Glucose 136 (H) 70 - 99 POINT OF CARE mg/dL TEST, GLUCOSE Specimen Anatomical Collection Method Collection Time Receive d Time (Source) Location / / Volume Laterality 06/08/2016 8:58 AM 6 9:00 STEVEDORING SUPERINTENDENT AM STEVEDORING SUPERINTENDENT Agatha Nieves DPM, Podiatry/Foot and Ankle Surgery LAB - [place] Performing Organization Address City/State/ZIP Code Phon e Number FV POINT OF CARE TEST, GLUCOSE POINT OF CARE TEST, GLUCOSE PATHOLOGY RESULT - HIM SCAN (06/08/2016 12:00 AM STEVEDORING SUPERINTENDENT) Specimen (Source) Anatomical Location Collection Method / [...] (ROXICODONE) IR tablet Given 06/08/2016 12:23 PM STEVEDORING SUPERINTENDENT 5 mg 5-10 mg 5-10 mg, Oral, ONCE PRN, moderate to severe pain, Starting on [place] 06/08/16 at 1107, For 1 dose, One time prior to discharge., Post-procedure documented in this encounter Active and Recently Administered Medications Times are shown in STEVEDORING SUPERINTENDENT. Scheduled Medication Order 06/06/2016 06/07/2016 06/08/2016 ceFAZolin [...] documented as of this encounter Care Teams Paint Grinder Relationship Specialty Start Date End Date Vanda Guerrero MD PCP - General Internal Medicine 04/08/15 01/08/19 [address] [facility] [place] [id number] documented as of this encounter
--- OUTSIDE RECORDS SUMMARY | 2022-02-06 10:17 | XMS_ITS | Encounter Summary ---
:1965 Author Organization [place] Address [address] [place] [address] Care Team Providers Name Role Phone Vanda Guerrero MD Primary Care Provider [phone] Vanda Guerrero MD Unavailable Reason for Visit [facility] Physical Therapy (Routine) - Closed Specialty Diagnoses / Procedures Referred By Contact Refer red To Contact Physical Therapy Diagnoses new pt needs paperwork post peroneal tendon repair surgery left foot. / Agatha Null DPM, Pod @ [facility] Pod[facility] Agatha Null DPM, Candy Disla, PT Procedures EXTREMITY INITIAL Podiatry/Foot and [facility] [address] [place] [address] [place] [address] [place] [address] Referral ID Status Reason Start Date Expiration Date Visits V isits Requested Authorized LINUS/BC/LFOOT Closed 07/03/2016 06/10/2017 20 18 Encounter Details Date Type Department Care Team Description 08/11/2016 [facility] p ain, left; Rehabilitation PT Aftercare following surgery of the [facility] Services [facility] [address] [facility] [address] [place] [address] [place], [place] [phone] [address] Social History Tobacco Use Types Packs/Day [...] How often do you attend jainism or amish Patient refused 08/08/2019 services? Do [...] short term goals and is progressing towards terminal manager goals. Self Management Plans: Patient has been [...] and time spent performing 1:1 timed codes. SQL DEVELOPER documented in this encounter Plan of Treatment Not on filedocumented as of this encounter Procedures Procedure Name Priority Date/Time Associated Diagnosis Comme n[facility] Routine 08/11/2016 10:38 AM Ankle pain , left RE-EDUCATION JAVA SQL DEVELOPER Aftercare following surgery of the musculoskeletal system [facility] Routine 08/11/2016 10:38 AM Ankle pain, left EXERCISES JAVA SQL DEVELOPER Aftercare following surgery of the musculoskeletal system documented in this encounter Visit Diagnoses Diagnosis Ankle pain, left Pain in joint, ankle and foot Aftercare [facility] the [facility] Aftercare following [facility] the [facility], NEC documented in this encounter Additional Health Concerns Assessment Noted Time PHQ-9 Depression Total Score: 11 05/02/2016 7:09 AM CS T documented as of this encounter Care Teams Senior Android Developer Relationship Specialty Start Date End Date Vanda Guerrero MD PCP - General Internal Medicine 04/08/15 01/08/[address] [place] [address] [place] [id number] Vanda Guerrero MD PCP - Assigned PCP 07/24/16 06/15/[address] [place] [address] [place] [id number] documented as of this encounter
--- OUTSIDE RECORDS SUMMARY | 2022-02-06 10:17 | XMS_ITS | Encounter Summary ---
:1965 Author Organization [facility] Address [address] [place] [address] Care Team Providers Name Role Phone Vanda Guerrero MD Primary Care Provider [phone] Reason for Visit LINUS Physical Therapy (Routine) - Closed Specialty Diagnoses / Procedures Referred By Contact Refer red To Contact Physical Therapy Diagnoses new pt needs paperwork post peroneal tendon repair surgery left foot. / Agatha Null DPM, Pod @ Cr Podiatry Agatha Null DPM, Candy Disla, PT Procedures EXTREMITY INITIAL Podiatry/Foot and [facility] [address] [place] [address] [facility] [address] [place] [address] [place] [address] Referral ID Status Reason Start Date Expiration Date Visits V isits Requested Authorized LINUS/BC/LFOOT Closed 07/03/2016 06/10/2017 20 18 Encounter Details Date Type Department Care Team Description 07/03/2016 [facility] After[facility] re following surgery of the musculoskeletal system (Primary Dx); Rehabilitation PT Ankle pain, left Services Pino [facility] [address] [facility] [address] [place] [address] [place], [place] [phone] [address] Social History Tobacco Use Types Packs/Day [...] How often do you attend bahai or temple Patient refused 08/08/2019 services? Do [...] Objective: System Physical Exam General ROS Assessment/Plan: AND STEEL WORK SUPERVISOR Candy Disla, PT - 07/03/2016 10:04 AM CST [facility] Initial Evaluation Subjective: Megan [...] Sheet for this information) Short term and alf goals: (See Goal Flow Sheet for this [...] and time spent performing 1:1 timed codes. AND STEEL WORK SUPERVISOR documented in this encounter Plan of Treatment Not on filedocumented as of this encounter Procedures Procedure Name Priority Date/Time Associated Diagnosis Comme [facility] THERAPEUTIC Routine 07/03/2016 2:19 PM Aftercare following EXERCISES IRON AND STEEL WORK SUPERVISOR surgery of the musculoskeletal system Ankle pain, left documented in this encounter Visit Diagnoses Diagnosis Aftercare following surgery of the muscu loskeletal system - Primary Aftercare [facility], NEC Ankle pain, left Pain in joint, ankle and foot documented in this encounter Additional Health Concerns Assessment Noted Time PHQ-9 Depression Total Score: 11 05/02/2016 7:09 AM CS T documented as of this encounter Care Teams Senior Process Control Tech Relationship Specialty Start Date End Date Vanda Guerrero MD PCP - General Internal Medicine 04/08/15 01/08/19 [address] [facility] [place] [id number] documented as of this encounter
--- OUTSIDE RECORDS SUMMARY | 2022-02-06 10:17 | XMS_ITS | Encounter Summary ---
:1965 Author Organization [place] Address [address] [place] [address] Care Team Providers Name Role Phone Vanda Guerrero MD Primary Care Provider [phone] Reason for Visit Reason Comments Surgical Followup Left peroneal tendon repair and transfer DOS 06/10/16 Encounter Details Date Type Department Care Team Description 07/18/2016 Office Visit [facility] Agatha Null, Post-op [facility] DPM, Podiatry/Foot (Primary Dx) [address] [facility] [place] [address] [place] [address] [place] [address] [place], [place] [address] (Wo rk) Social History Tobacco Use Types [...] How often do you attend yarsani or anabaptism Patient refused 08/08/2019 services? Do [...] Comments Blood Pressure 118/78 07/18/2016 9:54 AM PHOTO OFFSET PRINTER Pulse - - Temperature - - Respiratory Rate - - Oxygen Saturation - - Inhaled Oxygen Concentration - - Weight 86.6 kg (191 lb) 07/18/2016 9:54 AM PHOTO OFFSET PRINTER Height 157.5 cm (5' 2) 07/18/2016 9:54 AM PHOTO OFFSET PRINTER Body Mass Index 34.93 07/18/2016 9:54 AM PHOTO OFFSET PRINTER documented in this encounter Patient Instructions Patient InstructionsLarry Michael - 07/18/2016 10:[address] [facility] Schedule Follow up in 1 month Sunday AM Sunday [facility] [address] [place] [address] [facility] [address] [address] [place] [place] [address] [facility] [address] [place] [address] Sunday PM & Sunday AM Sunday PM Surgery Scheduling Line: [phone] [facility] [place] [address] [place] [address] [facility] [address] [place] [address] Appointment [phone] General After Hours: Patient [phone] O OFFSET PRINTER documented in this encounter Progress Notes Agatha Null, MARÍA, Podiatry/Foot and Ankle Surgery - 07/18/2016 9:58 AM PHOTO OFFSET PRINTER Podiatry / Foot and Ankle Surgery Progress [...] kg). Medication Reconciliation: complete Larry Michael MA O OFFSET PRINTER documented in this encounter Plan of Treatment Not on filedocumented as of this encounter Visit Diagnoses Diagnosis Post-operative state - Primary Other postprocedural status documented in this encounter Additional Health Concerns Assessment Noted Time PHQ-9 Depression Total Score: 11 05/02/2016 7:09 AM CS T documented as of this encounter Care Teams Agricultural Extension Educator Relationship Specialty Start Date End Date Vanda Guerrero MD PCP - General Internal Medicine 04/08/15 01/08/19 [address] [facility] [place] [address] documented as of this encounter
--- OUTSIDE RECORDS SUMMARY | 2022-02-06 10:17 | XMS_ITS | Encounter Summary ---
:1965 Author Organization [place] Address [facility] [place] [address] Care Team Providers Name Role Phone Vanda Guerrero MD Primary Care Provider Reason for Referral [facility] Physical Therapy - Closed Specialty Diagnoses / Procedures Referred By Contact Refer red To Contact Diagnoses Post-operative state Weakness Agatha Null, JOAOM, [facility] Pod[facility]ry/Foot and Ankle MED Surgery [address] [place] [address] [address] [place] [address] [place] [address] Phone: [phone] Referral ID Status Reason Start Date Expiration Date Visits Requ ested Visits Authorized [id number] Closed 06/20/2016 06/20/2017 1 1 TOLOGY PHYSICIAN Reason for Visit Reason Comments Surgical Followup Left peroneal tendon repair and transfer Encounter Details Date Type Department Care Team Description 06/20/[address] [facility] Agatha De Los Santos, Post-op erative state (Primary Dx); [facility] [place] DPM, Podiatry/Foot Weakness [address] [facility] [place] [address] [place] [address] [address] [place], [place] [id number] (Wo rk) Social History Tobacco Use Types [...] How often do you attend taoism or quaker Patient refused 08/08/2019 services? Do [...] Comments Blood Pressure 116/82 06/20/2016 10:07 AM HEPATOLOGY PHYSICIAN Pulse - - Temperature - - Respiratory Rate - - Oxygen Saturation - - Inhaled Oxygen Concentration - - Weight 86.6 kg (191 lb) 06/20/2016 10:07 AM HEPATOLOGY PHYSICIAN Height 157.5 cm (5' 2) 06/20/2016 10:07 AM HEPATOLOGY PHYSICIAN Body Mass Index 34.93 06/20/2016 10:07 AM HEPATOLOGY PHYSICIAN documented in this encounter Patient Instructions Patient InstructionsLarry Michael - 06/20/2016 10:20 AM CST 1. Can get foot wet. 2. Can start minimal weight bearing in boot and crutches in 3 weeks in the house. 3. Start PT in 2 weeks. 4. Follow up in 1month [facility] Schedule Sunday AM Sunday [facility] [address] [place] [address] [facility] [address] [place] [address] [facility] [address] [place] [address] Sunday PM & Sunday AM Sunday PM Surgery Scheduling Line: [phone] [facility] [place] [address] [place] [address] [facility] [address] [place] [address] Appointment [phone] General After Hours: Patient [phone] Scar Care Protocol Scarring is an unfortunate [...] of the scar, as it will exchange trouble shooter the next year. Scar Care 1. Do [...] and Ankle Surgery - 06/20/2016 10:15 AM HEPATOLOGY PHYSICIAN Podiatry / Foot and Ankle Surgery Progress [...] using cuff size: regular Larry Michael MA TOLOGY PHYSICIAN documented in this encounter Plan of [...] documented as of this encounter Care Teams Arm Rest Builder Relationship Specialty Start Date End Date Vanda Guerrero MD PCP - General Internal Medicine 04/08/15 01/08/19 [address] [place] [address] documented as of this encounter
--- OUTSIDE RECORDS SUMMARY | 2022-02-06 10:17 | XMS_ITS | Encounter Summary ---
:1965 Author Organization [place] Address [address] [place] [address] Care Team Providers Name Role Phone Vanda Guerrero MD Primary Care Provider [phone] Vanda Guerrero MD Unavailable Reason for Visit [facility] Physical Therapy (Routine) - Closed Specialty Diagnoses / Procedures Referred By Contact Refer red To Contact Physical Therapy Diagnoses new pt needs paperwork post peroneal tendon repair surgery left foot. / Agatha Null DPM, Pod @ Cr Podiatry Agatha Null DPM, Candy Disla, PT Procedures [facility] Podiatry/Foot and [facility] [address] [place] [address] [place] [address] [place] [address] Referral ID Status Reason Start Date Expiration Date Visits V isits Requested Authorized LINUS/BC/LFOOT Closed 07/03/2016 06/10/2017 20 18 Encounter Details Date Type Department Care Team Description 08/18/2016 [facility], Ankle p ain, left; Rehabilitation PT Aftercare following surgery of the [facility] Services [facility] [address] [facility] [address] [place] [address] [place], [place] [phone] [address] Social History Tobacco Use Types Packs/Day [...] How often do you attend buddhist or synagogue Patient refused 08/08/2019 services? 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
--- OUTSIDE RECORDS SUMMARY | 2022-02-06 10:17 | XMS_ITS | Encounter Summary ---
:1965 Author Organization [place] Address [facility] [place] [address] Care Team Providers Name Role Phone Vanda Guerrero MD Primary Care Provider [phone] Reason for Visit Reason Comments Facial Pain 2-3 days, left side of face, swelling, pain with eating, tender to the touch. URI 1 week, fever, congestion, c ough, ear pain and dizziness. Encounter Details Date Type Department Care Team Description 07/13/2016 Office Visit [facility] Santos Alegria Acute si nusitis with symptoms > 10 days (Primary Dx); [facility]gent [facility] [place] Ben[place]tez PA-C Acute suppurative otitis media of both e ars without spontaneous rupture of tympanic membranes, recurrence not specified [address] [place] [address] [address] [address] [place] [address] Social History Tobacco Use [...] How often do you attend adventism or advent Patient refused 08/08/2019 services? Do [...] Comments Blood Pressure 112/68 07/13/2016 11:09 AM MANAGER SUBWAY Pulse 94 07/13/2016 11:09 AM MANAGER SUBWAY Temperature 37.1 ??C (98.7 ??F) 07/13/2016 11:09 AM MANAGER SUBWAY Respiratory Rate - - Oxygen Saturation 98% 07/13/2016 11:09 AM MANAGER SUBWAY Inhaled Oxygen Concentration - - Weight 86.6 kg (191 lb) 07/13/2016 11:09 AM MANAGER SUBWAY Height 157.5 cm (5' 2) 07/13/2016 11:09 AM MANAGER SUBWAY Body Mass Index 34.93 07/13/2016 11:09 AM MANAGER SUBWAY documented in this encounter Patient Instructions Patient [...] a towel soaked in hot water. Or, in home sales consultant theshower and direct the hot spray onto your face. Using a vaporizer along with a menthol rub at night may also help.? An??expectorant??containing guaifenesin may help thin the mucus and promote drainage from the sinuses. ?? Qvxt-utx-capzncv??decongestants??may be used unless a similar medicine was [...] decongestants. They can raise blood pressure.) ?? Nzpi-fzg-vmrvqpo??antihistamines??may help if allergies contributed to your sinusitis. [...] Symptoms not resolving within 10 days ?? [id number] [employer]. [address] [place] [address]. All rights reserved. This information is not intended as a substitute for professional medical care. Always follow your healthcare professional's instructions. GER SUBWAY documented in this encounter Progress Notes Santos [...] fail to fully resolve with above tx. GER SUBWAY documented in this encounter Nursing Notes Gisele [...] using cuff size: large Gisele Patel MA GER SUBWAY documented in this encounter Plan of Treatment [...] documented as of this encounter Care Teams Anesthesiologist Assistant Certified Relationship Specialty Start Date End Date Vanda Guerrero MD PCP - General Internal Medicine 04/08/15 01/08/[address] [facility] [address] [place], [place] [address] documented as of this encounter
--- OUTSIDE RECORDS SUMMARY | 2022-02-06 10:17 | XMS_ITS | Encounter Summary ---
:1965 Author Organization [place] Address [address] [place] [address] Care Team Providers Name Role Phone Vanda Guerrero MD Primary Care Provider [phone] Vanda Guerrero MD Unavailable Reason for Visit Reason Onset Date Comments Refill Request 09/19/2016 ONE TOUCH ULTRA TEST STRIPS Encounter Details Date Type Department Care Team Description 09/19/2016 Refill [facility] Vanda Guerrero R efill Request (ONE [facility] [place] TOUCH ULTRA TEST [address] [facility] STRIP S) [facility] [address] [place] [address] [place] [address] [phone] Social History Tobacco Use Types Packs/Day Years [...] How often do you attend denominational or holiness Patient refused 08/08/2019 services? Do [...] CDT Office Visit with Vanda Guerrero MD [facility]) [address] [place] [address] [address] [employer] [address] documented in this encounter Plan of Treatment Not on filedocumented as of this encounter Visit Diagnoses Diagnosis Type 2 diabetes mellitus without complic ation (H) - Primary documented in this encounter Additional Health Concerns Assessment Noted Time PHQ-9 Depression Total Score: 11 05/02/2016 7:09 AM CS T documented as of this encounter Care Teams Agricultural Research Technician Relationship Specialty Start Date End Date Vanda Guerrero MD PCP - General Internal Medicine 04/08/15 01/08/[address] [place] [address] [place] [address] Vanda Guerrero MD PCP - Assigned PCP 07/24/16 06/15/[address] [place] [address] [place] [address] documented as of this encounter
--- OUTSIDE RECORDS SUMMARY | 2022-02-06 10:18 | XMS_ITS | Encounter Summary ---
:1965 Author Organization [place] Address [address] [place] [address] Care Team Providers Name Role Phone Vanda Guerrero MD Primary Care Provider [phone] Reason for Visit Reason Onset Date Comments Refill Request 02/20/2016 loratadine-pseudoePH EDrine (CLARITIN-D 24-HOUR) 10-240 MG per tablet Encounter Details Date Type Department Care Team Description 02/20/2016 Refill [facility] [place] Good Refill Request [address] J, BROKER ASSISTANT AQUATICS LIFEGUARD (loratadine-pseudoePHEDr [place] [address] [facility] (CLARITIN-D 24-HOUR) [phone] 10-240 MG per tablet) DAVID [...] How often do you attend worship or church Patient refused 08/08/2019 services? Do [...] because: Drug not on the [facility] or [facility] refill protocol or controlled substance Raven Emmanuel RN Telephone Encounter - Sukh Beltran - 02/20/2016 1:00 PM CDT loratadine-pseudoePHEDrine (CLARITIN-D 24-HOUR) 10-240 MG per tablet Last Written Prescription Date: 12-22-2014 Last Fill Quantity: 90, # refills: prn Last Office Visit with [facility] or Health prescribing provider: 12-22-2015 Next 5 appointments (look out 90 days) Mar 23, 2016 10:20 AM Office Visit with Vanda Guerrero MD [facility] [place] ([facility] [place]) [address] [place] [address] [place] [address] documented in this encounter Plan of Treatment Not on filedocumented as of this encounter Visit Diagnoses Diagnosis Seasonal allergic rhinitis - Primary Allergic rhinitis, cause unspecified documented in this encounter Additional Health Concerns Assessment Noted Time PHQ-9 Depression Total Score: 12/23/2015 7:15 AM CD T documented as of this encounter Care Teams Sat Math Tutor Relationship Specialty Start Date End Date Vanda Guerrero MD PCP - General Internal Medicine 04/08/15 01/08/[address] [place] [address] [place] [id number] documented as of this encounter
--- OUTSIDE RECORDS SUMMARY | 2022-02-06 10:18 | XMS_ITS | Encounter Summary ---
:1965 Author Organization [place] Address [address] [place] [address] Care Team Providers Name Role Phone Vanda Guerrero MD Primary Care Provider [phone] Reason for Visit Reason Onset Date Comments Medication Question 05/08/2016 interactions with me ds Encounter Details Date Type Department Care Team Description 05/08/2016 Telephone [facility] Vanda Lal Medication Question 14[address] [facility] MD [place] (interactions with [place] [address] [place] [address]) [phone] [facility] [place] [address] (Wo rk) [...] How often do you attend restorationism or synagogue Patient refused 08/08/2019 services? Do [...] PM CST Gave verbal ok to pharmacist. HOUSE ORDER FILLER Telephone Encounter - Vanda Guerrero MD - 05/08/2016 3:34 PM WAREHOUSE ORDER FILLER Patient has been on this combination scale clerk, is tolerating well, and is being followed closely. OK to fill. Please call pharmacy. HOUSE ORDER FILLER Telephone Encounter - Graciela Barone RN - 05/08/2016 3:07 PM CST Cara pharmacist from [facility] calling regarding medication interactions with Citalopram. Omeprazole and Tizanidine in conjunction with Omeprazole may increased the QT interval. Cymbalta also interacts with Citalopram-increased serotonin. Please call pharmacist at [phone], if ok to continue these medications. Iain Barone RN HOUSE ORDER FILLER documented in this encounter Plan of Treatment Not on filedocumented as of this encounter Visit Diagnoses Not on filedocumented in this encounter Additional Health Concerns Assessment Noted Time PHQ-9 Depression Total Score: 05/02/2016 7:09 AM CS T documented as of this encounter Care Teams Paving Foreman Relationship Specialty Start Date End Date Vanda Guerrero MD PCP - General Internal Medicine 04/08/15 01/08/19 [address] [facility] [place] [address] documented as of this encounter
--- OUTSIDE RECORDS SUMMARY | 2022-02-06 10:18 | XMS_ITS | Encounter Summary ---
:1965 Author Organization [place] Address [address] [place] [address] Care Team Providers Name Role Phone Vanda Guerrero MD Primary Care Provider [phone] Encounter Details Date Type Department Care Team Description 10/03/2015 Orders Only [facility] Vanda Guerrero Abnormal finding on [place] Toribio MD thyroid function test [address] (Primary Dx) [place] [address] [facility] [phone] [place] [address] (Wo rk) Social History [...] How often do you attend mormonism or episcopal Patient refused 08/08/2019 services? Do you belong to any clubs or organizations such as 08/08/2019 mormonism groups, unions, fraternal or athletic [...] Thyroid stimulating immunoglobulin (12/03/2015 8:50 AM CDT) [facility] Method Time Signature Thyroid Stim <1.0 [place] Immunog Reference range: <=1.3 [facility] Unit: TSI index [place] (Note) Test Performed by: [address] [address] Painter Barrel: Huseyin Dash II, M.D., Ph.D. Specimen Anatomical Collection Method Collection Time Receive d Time (Source) Location / / Volume Laterality Blood specimen 12/03/2015 8:50 AM 016 8:55 (specimen) CDT AM CDT Vanda Guerrero MD LAB - BLOOD ORDERABLES Performing Organization Address City/State/ZIP Code Phon e Number [facility] [place] [address] [facility] [place] [address] documented in this encounter Visit Diagnoses Diagnosis Abnormal finding on thyroid function shirley t - Primary Nonspecific abnormal results of thyroid function study documented in this encounter Additional Health Concerns Assessment Noted Time PHQ-9 Depression Total Score: 13 07/09/2015 7:49 AM CS T documented as of this encounter Care Teams Sand Miller Relationship Specialty Start Date End Date Vanda Guerrero MD PCP - General Internal Medicine 04/08/15 01/08/19 [address] [facility] [place] [address] documented as of this encounter
--- OUTSIDE RECORDS SUMMARY | 2022-02-06 10:18 | XMS_ITS | Encounter Summary ---
:1965 Author Organization [place] Address [address] [place] [address] Care Team Providers Name Role Phone Vanda Guerrero MD Primary Care Provider [phone] Reason for Visit Reason Onset Date Comments Refill Request 12/06/2015 METFORMIN 500MG Encounter Details Date Type Department Care Team Description 12/06/2015 Refill [facility] Vanda Lal, Refill Request [address] [place] (METFORMIN 500MG) [place] [address] [address] [facility] [phone] [facility] [place] [address] (Wo rk) Social [...] How often do you attend islam or zoroastrian Patient refused 08/08/2019 services? Do [...] 12/08/2015 4:31 PM CDT Prescription approved per [facility] Refill Protocol. Bambi Chaudhary RN Telephone Encounter - Marisa Matthew - 12/06/2015 8:14 AM CDT METFORMIN 500MG Last Written Prescription Date: 09/10/2015 Last Fill Quantity: 180, # refills: 0 Last Office Visit with G, P or [facility] prescribing provider: 11/01/2015 Next 5 appointments (look out 90 days) Dec 22, 2015 9:00 AM Office Visit with Vanda Guerrero MD [facility] [place] ([facility] [place]) [address] [facility] [place] [address] MICROL 10 09/30/2015 MICROALBUMIN [...] as of this encounter Care Teams Director Medical Surgical Relationship Specialty Start Date End Date Vanda Guerrero MD PCP - General Internal Medicine 04/08/15 01/08/[address] [facility] [place] [address] documented as of this encounter
--- OUTSIDE RECORDS SUMMARY | 2022-02-06 10:18 | XMS_ITS | Encounter Summary ---
:1965 Author Organization [place] Address [address] [place] [address] Care Team Providers Name Role Phone Vanda Guerrero MD Primary Care Provider [phone] Reason for Visit Reason Comments Diabetes Lipids Recheck Medication Encounter Details Date Type Department Care Team Description 12/22/2015 Office Visit [facility] Vanda Guerrero Type 2 d iabetes mellitus without complication (H) (Primary Dx); [place] Toribio MD Recurrent major depressive disorder, rem ission status unspecified (H); [address] [facility] Hyperlipidemia LDL goal <100 ; [place] [address] [facility] Fibromyalgia; [phone] [place] [address] Symptomatic menopausal or female climact [place]; [phone] Anxiety; (Work) History of lumbar fusion; Colon [...] How often do you attend orthodoxy or tenriism Patient refused 08/08/2019 services? Do [...] Guerrero MD - 12/22/2015 9:31 AM CDT mold cleaning and storage supervisor your FIT test for colon cancer at [...] Unit: TSI index (Note) Test Performed by: [facility] - [address] [address] Floor Coverings Installer: Huseyin Dash II, M.D., Ph.D. ASSESSMENT/PLAN: ICD-10-CM [...] neuropathy Z13.89 Normal foot exam Patient Instructions mold cleaning and storage supervisor your FIT test for colon cancer at [...] current medications for now Vanda Guerrero MD [facility] documented in this encounter Nursing Notes [...] Signature Occult Blood Negative NEG [facility] FIT [facility] Specimen Anatomical Collection Method Collection Time Receive d Time (Source) Location / / Volume Laterality Stool specimen 01/07/2016 11:41 6 (specimen) AM CDT 11:42 AM CDT Vanda Guerrero MD LAB - STOOLS ORDERABLES Performing Organization Address City/State/ZIP Code Phon e Number [facility] [address] [place], [place] [id number] [place] [address] documented in this encounter Visit Diagnoses Diagnosis [...] documented as of this encounter Care Teams Drop Wire Operator Relationship Specialty Start Date End Date Vanda Guerrero MD PCP - General Internal Medicine 04/08/15 01/08/[address] [facility] [place] [address] documented as of this encounter
--- OUTSIDE RECORDS SUMMARY | 2022-02-06 10:18 | XMS_ITS | Encounter Summary ---
:1965 Author Organization [facility] Address [address] [place] [address] Care Team Providers Name Role Phone Vanda Guerrero MD Primary Care Provider [phone] Reason for Visit Reason Comments Foot Problems recheck afte MRI Encounter Details Date Type Department Care Team Description 05/16/2016 Office Visit [facility] Agatha Null, Foot pa in, bilateral (Primary Dx); [facility] [place] DPM, Podiatry/Foot Peroneal tendon tear, left, initial encounter; [address] [facility] Peroneal tendon tear, right, initial enc ounter; [place] [address] Seda capellan vus, congenital; [address] [address] Fibromyalgia; [phone] [place], [place] Type 2 diabet es mellitus without [...] How often do you attend orthodoxy or jew Patient refused 08/08/2019 services? Do [...] Comments Blood Pressure 124/80 05/16/2016 9:43 AM FITNESS STUDIES TEACHER Pulse - - Temperature - - Respiratory Rate - - Oxygen Saturation - - Inhaled Oxygen Concentration - - Weight 86.7 kg (191 lb 3.2 oz) 05/16/2016 9:43 AM FITNESS STUDIES TEACHER Height 157.5 cm (5' 2) 05/16/2016 9:43 AM FITNESS STUDIES TEACHER Body Mass Index 34.97 05/16/2016 9:43 AM FITNESS STUDIES TEACHER documented in this encounter Patient Instructions Patient InstructionsAgatha Null DPM, Podiatry/Foot and Ankle Surgery - 05/16/2016 10:[address] Null can be found at these clinics: Sunday AM [facility] [address] [place] [address] Sunday PM Surgery Sunday All Day [facility] [address] [place] [address] Sunday [facility] [address] [place] [facility] [place] [place] [id number] All Day surgery Sunday [facility] [place] [address], [address] [place], [place] [address] Sunday PM [facility] [address] [facility], [address] [place] [address] TO SCHEDULE SURGERY, call Yecenia at [phone]. To Schedule appointments call: [phone] General (after hours): Patient [phone] POTENTIAL COMPLICATIONS OF FOOT AND ANKLE SURGERY [...] and Ankle Surgery - 05/16/2016 1:39 PM FITNESS STUDIES TEACHER Podiatry / Foot and Ankle Surgery [...] using cuff size: regular Larry Michael MA ESS STUDIES TEACHER documented in this encounter Plan of [...] of this encounter Care Teams Speech And Drama Teacher Relationship Specialty Start Date End Date Vanda Guerrero MD PCP - General Internal Medicine 04/08/15 01/08/19 [address] [facility] [address] [place], [place] [address] documented as of this encounter
--- OUTSIDE RECORDS SUMMARY | 2022-02-06 10:18 | XMS_ITS | Encounter Summary ---
:1965 Author Organization [facility] Address [address] [place] [address] Care Team Providers Name Role Phone Vanda Guerrero MD Primary Care Provider [phone] Reason for Visit Reason Onset Date Comments Refill Request 02/09/2016 SIMVASTATIN 20MG Refill Request 02/09/2016 CITALOPRAM 20MG Encounter Details Date Type Department Care Team Description 02/09/2016 Refill [facility] Vanda Lal, Refill Request 1440 Priscilla Bass MD (SIMVASTATIN 20MG); [place] [phone] 4187 [facility] Refill Request [phone] NASIR ANDRE (CITALOPRAM 20MG) [place] [address] [...] How often do you attend buddhism or cheondoism Patient refused 08/08/2019 services? Do [...] 2:20 PM CDT Simvastatin Prescription approved per [facility] Refill Protocol. Celexa Medication is being filled for 1 time refill only due to: pt needs updated PHQ9-ok to wait until upcoming appt 03/23/16? Kassie Roberts, RN Telephone Encounter - Marisa Matthew - 02/10/2016 3:35 PM CDT CITALOPRAM 20MG Last Written Prescription Date: 11/09/2015 Last Fill Quantity: 90, # refills: 0 Last Office Visit with [facility] primary care provider: 12/22/2015 Next 5 appointments (look out 90 days) Mar 23, 2016 10:20 AM Office Visit with Vanda Guerrero MD [facility] [address] [place] [phone] Last PHQ-9 score on record= PHQ-9 SCORE 12/22/2015 Total Score - Total Score MyChart - Total Score 10 Telephone Encounter - Marisa Matthew - 02/09/2016 7:45 AM CDT SIMVASTATIN 20MG Last Written Prescription Date: 11/09/2015 Last Fill Quantity: 90, # refills: 0 Last Office Visit with [facility], [facility] or [facility] prescribing provider: 12/22/2015 Next 5 appointments (look out 90 days) Mar 23, 2016 10:20 AM Office Visit with Vanda Guerrero MD [facility] ([facility]) [address] [place] [address] CHOL 152 12/03/2015 HDL 51 12/03/2015 [...] as of this encounter Care Teams Can Sterilizer Relationship Specialty Start Date End Date Vanda Guerrero MD PCP - General Internal Medicine 04/08/15 01/08/19 [address] [facility] [address] [place], [place] [address] documented as of this encounter
--- OUTSIDE RECORDS SUMMARY | 2022-02-06 10:18 | XMS_ITS | Encounter Summary ---
:1965 Author Organization [facility] Address [address] [place] [address] Care Team Providers Name Role Phone Vanda Guerrero MD Primary Care Provider [phone] Encounter Details Date Type Department Care Team Description 10/03/2015 Orders Only [facility] Vanda Guerrero Abnormal finding on Pino Toribio MD thyroid function test [address] (Primary Dx) [place] [address] [facility] [phone] [place] [address] (Wo rk) Social History [...] any clubs or organizations such as 08/08/2019 scientologist groups, unions, fraternal or athletic [...] athologist Signature TSH 3.93 0.40 - 4.00 [facility] mU/L [facility] Specimen Anatomical Collection Method Collection Time Receive d Time (Source) Location / / Volume Laterality Blood specimen 12/03/2015 8:50 AM 016 8:55 (specimen) CDT AM CDT Vanda Guerrero MD LAB - BLOOD ORDERABLES Performing Organization Address City/State/ZIP Code Phon e Number [facility] [address] [place] [address] documented in this encounter Visit Diagnoses Diagnosis Abnormal finding on thyroid function shirley t - Primary Nonspecific abnormal results of thyroid function study documented in this encounter Additional Health Concerns Assessment Noted Time PHQ-9 Depression Total Score: 13 07/09/2015 7:49 AM CS T documented as of this encounter Care Teams Cutter Woodwind Reeds Relationship Specialty Start Date End Date Vanda Guerrero MD PCP - General Internal Medicine 04/08/15 01/08/19 [address] [facility] [place] [address] documented as of this encounter
--- OUTSIDE RECORDS SUMMARY | 2022-02-06 10:18 | XMS_ITS | Encounter Summary ---
:1965 Author Organization [place] Address [address] [place] [address] Care Team Providers Name Role Phone Vanda Guerrero MD Primary Care Provider [phone] Vanda Guerrero MD Unavailable JeanaNoreen girard TIME STAMP ASSEMBLER SUPERVISOR [employer] Unavailable JeanaNoreen girard TIME STAMP ASSEMBLER SUPERVISOR [employer] Unavailable [phone] JeanaNoreen girard TIME STAMP ASSEMBLER SUPERVISOR [employer] Primary Care Provider Kalyan Galvan Unavailable Unavailable Lashae Trevino [facility] Unavailable [phone] Eduardo Sharma MD Unavailable Rios Monteiro MD Unavailable Marcelo Artis PA-C Unavailable [phone] Rodrigo Man PA-C Unavailable [phone] Encounter Details Date Type Department Care Team Description 02/11/2016 [facility] Vanda Ray MD [facility] [address] [place] [address] [place] [address] (Wo rk) Social History [...] How often do you attend scientologist or episcopalian Patient refused 08/08/2019 services? Do [...] as of this encounter Care Teams Pharmacy Sales Representative Relationship Specialty Start Date End Date Vanda Guerrero, PCP - General Internal Medicine 04/08/15 01/08/[address] [place] [address] [place] [phone] Vanda Guerrero, PCP - Assigned PCP 07/24/16 06/15/[address] [place] [address] [place] [phone] Noreen Hills PCP - Assigned PCP 06/16/18 08/13/18 SEAN Haley SUPERVISOR [employer] [address] [place] [address] [place] [phone] Noreen Hills PCP - General Nurse Practitioner 01/09/19 12/12/21 SEAN Haley SUPERVISOR [employer] [address] [place] [address] [place] [address] Noreen Hills Assigned PCP 06/16/18 SEAN Haley SUPERVISOR [employer] [address] [place] [address] [place] [address] Kalyan Galvan Personal Advocate & 08/08/19 Liaison (PAL) Lashae Trevino Pharmacist Pharmacist 10/14/19 12/01/20 CLAUDIA Beck [address] [id number] Eduardo Sharma MD Assigned Sleep Provider 04/02/20 05/07/21 [address] [place] 875145 Rios Monteiro MD Assigned Musculoskeletal 04/02/20 08/24/20 [address] [facility] Provider [address] [place], [place] [address] Marcelo Artis Assigned Musculoskeletal 08/25/20 08/20/21 MIKAYLA Nuno Provider [address] [facility] [address] [place], [place] [id number] Rodrigo Man Assigned Surgical 08/25/2011/27 MIKAYLA Lacy Provider [address] [place], [place] [address] documented as of this encounter
--- OUTSIDE RECORDS SUMMARY | 2022-02-06 10:18 | XMS_ITS | Encounter Summary ---
:1965 Author Organization [facility] Address [address] [place] [address] Care Team Providers Name Role Phone Vanda Guerrero MD Primary Care Provider [phone] Reason for Visit Reason Onset Date Comments Patient Request 10/27/2015 Should patient get l abs re-checked? Encounter Details Date Type Department Care Team Description 10/27/2015 Telephone [facility] Vanda Lal Patient [facility] 1440 [facility] MD Catarino (Should patient get [place] [phone] 3305 [facility] labs re-checked?) [phone] [facility] [place] [address] (Wo [...] documented as of this encounter Care Teams Occupational Therapist Assistants Relationship Specialty Start Date End Date Vanda Guerrero MD PCP - General Internal Medicine 04/08/15 01/08/[address] [facility] [place] [address] documented as of this encounter
--- OUTSIDE RECORDS SUMMARY | 2022-02-06 10:18 | XMS_ITS | Encounter Summary ---
:1965 Author Organization [facility] Address [address] [place] [address]. [place] [address] Care Team Providers Name Role Phone Vanda Guerrero MD Primary Care Provider [phone] Reason for Referral Consultation - Closed Specialty Diagnoses / Procedures Referred By Contact Refer red To Contact Diagnoses Left foot pain Vanda Guerrero MD [facility] 3[address] [facility] [address] [facility] [place] [address] [place] [address] Phone: Fax: Referral ID Status Reason Start Date Expiration Date Visits Requ ested Visits Authorized [id number] Closed 03/26/2016 03/26/2017 1 1 Reason for Visit Reason Comments Diabetes Lipids Recheck Medication Flu Shot Encounter Details Date Type Department Care Team Description 03/23/2016 Office Visit [facility] Vanda Guerrero Type 2 d iabetes mellitus without complication, without long-term current use of insulin (H) (Primary Dx); Pino Toribio MD Elevated alkaline phosphatase level; [address] [facility] Left foot pain; [place] DR Moderate episode of recurrent major depr essive disorder (H); [address] [place] [address] Gastroesophageal reflux disease without esophagitis; [phone] Fibromyalgia; (Work) Migraine without status migrainosus, not [...] How often do you attend adventist or congregation Patient refused 08/08/2019 services? Do [...] CDT documented in this encounter Progress Notes aVnda Guerrero MD - 03/23/2016 4:35 PM CDT [...] be active. Recently started therapy at [facility] - going weekly for the next 3 [...] SPLIT VIRUS IM > 3 YO (QUADRIVALENT) [47261] Vaccine Administration, Each Additional [77540] Vanda Guerrero MD [facility] Injectable Influenza Immunization Documentation 1. Is [...] the person to be vaccinated ever had Guillain-Emerson syndrome? No Form completed by patient documented [...] Signature GGT 33 0 - 40 U/L [facility] Specimen Anatomical Collection Method Collection Time Receive d Time (Source) Location / / Volume Laterality 03/23/2016 7:17 PM 6 7:19 CDT PM CDT Vanda Guerrero MD LAB - BLOOD ORDERABLES Performing Organization Address City/State/ZIP Code Phon e Number [facility] [address] [place] [address] (ABNORMAL) Hemoglobin A1c (03/23/2016 7:17 PM CDT) Patholo gist Method Time Signature Hemoglobin A1C 6.1 (H) 4.3 - 6.0 [facility] Specimen Anatomical Collection Method Collection Time Receive d Time (Source) Location / / Volume Laterality Blood specimen 03/23/2016 7:17 PM 016 7:19 (specimen) CDT PM CDT Vanda Guerrero MD LAB - BLOOD ORDERABLES Performing Organization Address City/State/ZIP Code Phon e Number [facility] [address] [place] [address] (ABNORMAL) Comprehensive metabolic panel (03/23/2016 7:17 PM CDT) [facility] Method Time Signature Sodium 142 133 - 144 [place] mmol/L [facility] Potassium 4.4 3.4 - 5.3 [place] mmol/L [facility] Chloride 110 (H) 94 - 109 [place] mmol/L [facility] Carbon Dioxide 29 20 - 32 [place] mmol/L [facility] Anion Gap 3 3 - 14 [place] mmol/L [facility] Glucose 106 (H) 70 - 99 [place] mg/dL [facility] Urea Nitrogen 17 7 - 30 [place] mg/dL [facility] Creatinine 0.77 0.52 - [place] 1.04 mg/dL [facility] GFR Estimate 78 >60 [place] mL/min/1.7 CLINICS m2 [facility] Comment: Non GFR Calc GFR Estimate If Black >90 >60 mL/min/1.7m2 F [facility] GFR Calc [place]OO [facility] Calcium 9.6 8.5 - 10.1 mg/dL [place] CLIN ICS [facility] Bilirubin Total 0.3 0.2 - 1.3 mg/dL [facility] Albumin 3.8 3.4 - 5.0 g/dL [facility] S [facility] Protein Total 7.9 6.8 - 8.8 g/dL [place] CL INICS [facility] Alkaline Phosphatase 159 (H) 40 - 150 U/L [facility] ALT 30 0 - 50 U/L [facility] AST 16 0 - 45 U/L [facility] Specimen Anatomical Collection Method Collection Time Receive d Time (Source) Location / / Volume Laterality Blood specimen 03/23/2016 7:17 PM 016 7:19 (specimen) CDT PM CDT Vanda Guerrero MD LAB - BLOOD ORDERABLES Performing Organization Address City/State/ZIP Code Phon e Number [facility] [address] [place] [address] documented in this encounter Visit Diagnoses Diagnosis [...] Need for prophylactic vaccination with c ombined jlihdzdgtq-fngsqjc-buzcstmkt (DTP) vaccine Need for prophylactic vaccination and in oculation against influenza documented in this encounter Additional Health Concerns Assessment Noted Time PHQ-9 Depression Total Score: 10 12/23/2015 7:15 AM CD T documented as of this encounter Care Teams Hypnotherapist Relationship Specialty Start Date End Date Vanda Guerrero MD PCP - General Internal Medicine 04/08/15 01/08/19 [address] [facility] [place] [address] documented as of this encounter
--- OUTSIDE RECORDS SUMMARY | 2022-02-06 10:18 | XMS_ITS | Encounter Summary ---
:1965 Author Organization [facility] Address [address] [place] [address] Care Team Providers Name Role Phone Vanda Guerrero MD Primary Care Provider [phone] Encounter Details Date Type Department Care Team Description 01/07/2016 Orders Only [facility] Eag an Colon cancer screening [facility] [place] [address] Social History Tobacco Use Types [...] How often do you attend episcopal or buddhism Patient refused 08/08/2019 services? Do [...] logist Time Signature Occult Blood Negative NEG [facility] FIT [facility] Specimen Anatomical Collection Method Collection Time Receive d Time (Source) Location / / Volume Laterality Stool specimen 01/07/2016 11:41 6 (specimen) AM CDT 11:42 AM CDT Vanda Guerrero MD LAB - STOOLS ORDERABLES Performing Organization Address City/State/ZIP Code Phon e Number [facility] [address] [place], [place] [id number] [place] [address] documented in this encounter Visit Diagnoses Diagnosis Colon cancer screening Special screening for malignant neoplasm s, colon documented in this encounter Additional Health Concerns Assessment Noted Time PHQ-9 Depression Total Score: 10 12/23/2015 7:15 AM CD T documented as of this encounter Care Teams Supervisor [place] Relationship Specialty Start Date End Date Vanda Guerrero MD PCP - General Internal Medicine 04/08/15 01/08/19 9[address] [facility] [place] [address] documented as of this encounter
--- OUTSIDE RECORDS SUMMARY | 2022-02-06 10:18 | XMS_ITS | Encounter Summary ---
:1965 Author Organization [facility] Address [address] [place] [address] Care Team Providers Name Role Phone aVnda Guerrero MD Primary Care Provider [phone] Reason for Visit Reason Onset Date Comments Vaginal Problem 04/18/2016 spotting Encounter Details Date Type Department Care Team Description 04/18/2016 Telephone [facility] Vanda Lal Vaginal Problem 1440 [facility] MD Catarino (spotting) [place] [address] 7921 [facility] [phone] [facility] [place] [address] (Wo [...] How often do you attend baptism or adventism Patient refused 08/08/2019 services? Do [...] Vanda Guerrero MD - 04/19/2016 8:40 AM REGIONAL TANKER TRUCK DRIVER Patient has appt with me later this month - will discuss in more detail at that time. ONAL TANKER TRUCK DRIVER Telephone Encounter - Kallie Mishra RN - [...] Guerrero, would like to wait versus seeing AMALGAMATOR. Patient will call with any new or worsening symptoms. FYI sent to Dr. Guerrero per patient request. ONAL TANKER TRUCK DRIVER documented in this encounter Plan of Treatment Not on filedocumented as of this encounter Visit Diagnoses Not on filedocumented in this encounter Additional Health Concerns Assessment Noted Time PHQ-9 Depression Total Score: 10 12/23/2015 7:15 AM CD T documented as of this encounter Care Teams Carbon Brushes Assembler Relationship Specialty Start Date End Date Vanda Guerrero MD PCP - General Internal Medicine 04/08/15 01/08/19 1013 [facility] [place] [address] documented as of this encounter
--- OUTSIDE RECORDS SUMMARY | 2022-02-06 10:18 | XMS_ITS | Encounter Summary ---
:1965 Author Organization [facility] Address [address] [place] [address] Care Team Providers Name Role Phone Vanda Guerrero MD Primary Care Provider [phone] Reason for Visit (Routine) - Closed Specialty Diagnoses / Procedures Referred By Contact Refer red To Contact Radiology / Diagnoses Epic order sb Rh Ultrasound cc Radiology. Procedures US PELVIC COMP W TRANSVAGINAL [address] [place] [address] Phone: Fax: Referral ID Status Reason Start Date Expiration Date Visits Requ ested Visits Authorized [id number] Closed 05/05/2016 05/05/2017 1 1 Encounter Details Date Type Department Care Team Description 05/05/2016 [facility] Vanda Guerrero opausal Encounter [facility] MD Catarino [facility] [address] [place] [address] [place] [address] [address] [place], [place] (Work) [address] Social History Tobacco Use [...] How often do you attend gnosticism or protestant Patient refused 08/08/2019 services? Do you belong to any clubs or organizations such as No 08/08/2019 gnosticism groups, [employer] LED Productss, fraAIFOTEC or athletic groups, or school groups? How [...] or female climacteric states fluticasone (FLONASE) 50 [place] 1-2 sprays 3 Bottle 3 05/0306/12/2017 MCG/ACT [...] Results fo r this TRANSABDOMINAL AND PM DISASSEMBLER PRODUCT bleeding procedure are in TRANSVAGINAL the results section. documented in this encounter Results US Pelvic Complete with Transvaginal (05/05/2016 2:41 PM DISASSEMBLER PRODUCT) Anatomical Region Laterality Modality Abdomen/Pelvis Ultrasound Specimen (Source) Anatomical Location Collection Method / Collectio n Time Received Time / Laterality Volume Impressions 05/05/2016 3:32 PM DISASSEMBLER PRODUCT IMPRESSION: 3.2 cm intramural fibroid. No endometrial thickening. Minimal free pelvic fluid is noted. Ovar ies are unremarkable and appear atrophic. DWIGHT LOZA MD Narrative 05/05/2016 3:32 PM DISASSEMBLER PRODUCT US PELVIC COMPLETE WITH TRANSVAGINAL 05/05/2016 2:41 [...] documented as of this encounter Care Teams Pharmaceutical Assistant Relationship Specialty Start Date End Date Vanda Guerrero MD PCP - General Internal Medicine 04/08/15 01/08/[address] [facility] [address] [place], [place] [address] documented as of this encounter
--- OUTSIDE RECORDS SUMMARY | 2022-02-06 10:18 | XMS_ITS | Encounter Summary ---
:1965 Author Organization [facility] Address [address] [place] [address] Care Team Providers Name Role Phone Vanda Guerrero MD Primary Care Provider [phone] Reason for Visit Reason Onset Date Comments Refill Request 12/31/2015 tiZANidine (ZANAFLEX ) 4 MG tablet Encounter Details Date Type Department Care Team Description 12/31/2015 Refill [facility] Vanda Lal, Refill Request 1440 Priscilla Bass MD (tiZANidine (ZANAFLEX) [place] [address] [place] [address] 4 MG tablet) [phone] [facility] [place] [phone] (Wo rk) Social History Tobacco Use Types [...] How often do you attend restorationist or lutheran Patient refused 08/08/2019 services? Do [...] Last Office Visit with [facility], [facility] or [facility] prescribing provider: 12/22/2015 Future Office visit: Next 5 appointments (look out 90 days) Mar 23, 2016 10:20 AM Office Visit with Vanda Guerrero MD [facility] [place] ([facility]) [address] [place] [phone] Routing refill request to provider for review/approval [...] documented as of this encounter Care Teams Bus Driver Supervisor Relationship Specialty Start Date End Date Vanda Guerrero MD PCP - General Internal Medicine 04/08/15 01/08/19 9501 [facility] [place] [address] documented as of this encounter
--- OUTSIDE RECORDS SUMMARY | 2022-02-06 10:18 | XMS_ITS | Encounter Summary ---
:1965 Author Organization [place] Address [address] [place] [address] Care Team Providers Name Role Phone Vanda Guerrero MD Primary Care Provider [phone] Reason for Visit Reason Comments Musculoskeletal Problem both, left foot worse. Encounter Details Date Type Department Care Team Description 04/04/2016 Office Visit [facility] Agatha Null, Pain in both feet (Primary Dx); [facility] [place] DPM, Podiatry/Foot Peroneal tendinitis of left lower extremity; [address] [facility] Peroneal tendinitis of right lower extre mity; [place] [address] Seda capellan vus, congenital; [address] [address] 300 Venous insufficiency of both lower extre mities; [phone] [place], [place] Fibromyalgia; [address] Type 2 diabetes mellitus without complic ation, without long-term current use of insulin (H); [phone] Non morbid obes ity, unspecified obesity type [...] How often do you attend christian or zoroastrian Patient refused 08/08/2019 services? Do you belong to any clubs or organizations such as No 08/08/2019 christian groups, ClassPasss, fraAirbrite or athletic groups, or school groups? How [...] be found at these clinics: Sunday AM [facility] [address] [place] [address] Sunday PM Surgery Sunday All Day [facility] [address] [place], [place] [id number] Sunday [facility] [address] [address] Turner[address] [place], [place] [id number] All Day surgery Sunday AM [facility] [place] [address], [address] [place], [place] [address] Sunday PM [facility] [address] [facility], [address] [place] [address] TO SCHEDULE SURGERY, call Yecenia at [phone]. To Schedule appointments call: [phone] General (after hours): Patient [phone] DIABETES AND YOUR FEET What effect does [...] 2000 IU daily), Alpha-Lipoic Acid (600-1800mg daily), Ibdcli-L-Edsoszgvy (500-1000mg TID, L-methyl folate (1500mcgdaily) Metformin can [...] of you. Do 2 sets of 10. teller coordinator the same position as above. While keeping [...] ??? 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 [...] ??? Cardiovascular Mother [place] age 72 ??? Cardiovascular Father RI early 40s, subsequent bipass ??? DIABETES Mother [...] obesity type PLAN: [facility]. Reviewed proper diabetic foot care. Reviewed [...] documented in this encounter Nursing Notes Zita Wotrhy CMA - 04/04/2016 9:48 AM CDT Chief [...] documented as of this encounter Care Teams Pricer Relationship Specialty Start Date End Date Vanda Guerrero MD PCP - General Internal Medicine 04/08/15 01/08/[address] [facility] [place] [address] documented as of this encounter
--- OUTSIDE RECORDS SUMMARY | 2022-02-06 10:18 | XMS_ITS | Encounter Summary ---
:1965 Author Organization [facility] Address [address] [place] [address] Care Team Providers Name Role Phone Vanda Guerrero MD Primary Care Provider [phone] Reason for Visit (Routine) - Closed Specialty Diagnoses / Procedures Referred By Contact Refer red To Contact Radiology / Radiology. Diagnoses Epic Order, sb pt. Voicemail Reminder placed 05/03/16 [facility] [place] [address] [place] [address] [place] [address] Phone: Fax: Referral ID Status Reason Start Date Expiration Date Visits Requ ested Visits Authorized [id number] Closed 05/05/2016 05/05/2017 1 1 Encounter Details Date Type Department Care Team Description 05/05/2016 Hospital Encounter [facility] Agatha Null B ilateral ankle [facility] DPM, joint pain [address] [facility] [address] [place] [address] [facility] [address] [facility] [address] [place], [place] [id number] Social History Tobacco Use Types Packs/Day Years [...] How often do you attend hindu or mormonism Patient refused 08/08/2019 services? Do [...] or female climacteric states fluticasone (FLONASE) 50 [place] 1-2 sprays 3 Bottle 3 05/0306/12/2017 MCG/ACT [...] PM Bilateral ankle Results for this CONTRAST MAKING MACHINE CATCHER joint pain procedure are i n the results section. documented in this encounter Results MR Ankle Right w/o Contrast (05/05/2016 1:06 PM MAKING MACHINE CATCHER) Anatomical Region Laterality Modality Right Ankle, SUBRAD MR MSK, UMP MR MSK M agnetic Resonance Specimen (Source) Anatomical Location Collection Method / Collectio n Time Received Time / Laterality Volume Impressions 05/05/2016 4:51 PM MAKING MACHINE CATCHER IMPRESSION: ?? 1. Type II accessory navicular [...] ROHAN PINK MD Narrative 05/05/2016 4:51 PM MAKING MACHINE CATCHER MR ANKLE RIGHT WITHOUT CONTRAST 05/05/2016 1:06 [...] documented as of this encounter Care Teams Bullard Machine Operator Relationship Specialty Start Date End Date Vanda Guerrero MD PCP - General Internal Medicine 04/08/15 01/08/[address] [facility] [address] [place], DAV[place] [address] documented as of this encounter
--- OUTSIDE RECORDS SUMMARY | 2022-02-06 10:18 | XMS_ITS | Encounter Summary ---
:1965 Author Organization [facility] Address [address] [place] [address] Care Team Providers Name Role Phone Vanda Guerrero MD Primary Care Provider [phone] Reason for Visit Reason Onset Date Comments Refill Request 11/05/2015 simvastatin, duloxet ine, citalopram Encounter Details Date Type Department Care Team Description 11/05/2015 Refill [facility] Vanda Lal, Refill Request 1440 Cochranirina Bass MD (simvastatin, [place] [address] [place] [address] duloxetine, citalopram) [phone] [facility] DAV[place] [id number] (Wo rk) Social History Tobacco Use Types [...] How often do you attend sabianist or caodaism Patient refused 08/08/2019 services? Do [...] this regularly per pharmacy. Prescription approved per [facility] Refill Protocol. CITALOPRAM Last Written Prescription Date: [...] UMP or [facility] prescribing provider: 11/01/2015 Next 5 appointments (look out 90 days) Dec 22, 2015 9:00 AM Office Visit with Vanda Guerrero MD [facility] [address] [place] [address] Pino HERNANDEZ [phone] CHOL 153 08/10/2014 HDL 61 08/10/2014 LDL [...] as of this encounter Care Teams Certified Alcohol And Drug Counselor Relationship Specialty Start Date End Date Vanda Guerrero MD PCP - General Internal Medicine 04/08/15 01/08/19 [address] [facility] [address] [place], [place] [address] documented as of this encounter
--- OUTSIDE RECORDS SUMMARY | 2022-02-06 10:18 | XMS_ITS | Encounter Summary ---
:1965 Author Organization [place] Address [address] [place] [address] Care Team Providers Name Role Phone Vanda Guerrero MD Primary Care Provider [phone] Reason for Visit (Routine) - Closed Specialty Diagnoses / Procedures Referred By Contact Refer red To Contact Radiology / Radiology. Diagnoses Epic Order, sb pt. [place] [address] [place] [address] [place] [address] Phone: Fax: Referral ID Status Reason Start Date Expiration Date Visits Requ ested Visits Authorized [id number] Closed 05/05/2016 05/03/2017 1 1 Encounter Details Date Type Department Care Team Description 05/05/2016 Hospital Encounter [facility] Agatha Null B ilateral ankle [facility] DPM, joint pain [address] [facility] [place] [address] [place] [address] [facility] 300 [place], [place] [id number] Social History Tobacco Use Types Packs/Day Years [...] How often do you attend sabianism or muslim Patient refused 08/08/2019 services? Do [...] or female climacteric states fluticasone (FLONASE) 50 [place] 1-2 sprays 3 Bottle 3 05/0306/12/2017 MCG/ACT [...] Bilateral ankle R esults for this CONTRAST SIMULATION ANALYST joint pain procedure are i n the results section. documented in this encounter Results MR Ankle Left w/o Contrast (05/05/2016 1:32 PM SIMULATION ANALYST) Anatomical Region Laterality Modality Left Ankle, SUBRAD MR MSK, UMP MR MSK Ma gnetic Resonance Specimen (Source) Anatomical Location Collection Method / Collectio n Time Received Time / Laterality Volume Impressions 05/05/2016 4:51 PM SIMULATION ANALYST IMPRESSION: ?? 1. Type II accessory navicular [...] ROHAN PINK MD Narrative 05/05/2016 4:51 PM SIMULATION ANALYST MR ANKLE LEFT WITHOUT CONTRAST 05/05/2016 1:32 [...] documented as of this encounter Care Teams Limnologist Relationship Specialty Start Date End Date Vanda Guerrero MD PCP - General Internal Medicine 04/08/15 01/08/[address] [facility] [address] documented as of this encounter
--- OUTSIDE RECORDS SUMMARY | 2022-02-06 10:18 | XMS_ITS | Encounter Summary ---
:1965 Author Organization [facility] Address [address] [place] [address] Care Team Providers Name Role Phone Vanda Guerrero MD Primary Care Provider [phone] Reason for Visit Reason Onset Date Comments Refill Request 03/07/2016 METFORMIN 500MG Encounter Details Date Type Department Care Team Description 03/07/2016 Refill [facility] Vanda Lal, Refill Request [address] [employer] [place] Kali SALDANA (METFORMIN 500MG) [place] [address] 8940 [facility] [phone] [facility] [place] [address] (Wo rk) Social [...] often do you attend latter day or episcopal Patient refused 08/08/2019 services? Do [...] MD [facility] [address] [place] [address] BP Readings from Last 3 Encounters: [...] documented as of this encounter Care Teams Educational Administration Teacher Relationship Specialty Start Date End Date Vanda Guerrero MD PCP - General Internal Medicine 04/08/15 01/08/19 [address] [facility] [place] [address] documented as of this encounter
--- OUTSIDE RECORDS SUMMARY | 2022-02-06 10:18 | XMS_ITS | Encounter Summary ---
:1965 Author Organization [facility] Address [address] [place] [address] Care Team Providers Name Role Phone Vanda Guerrero MD Primary Care Provider [phone] Encounter Details Date Type Department Care Team Description 12/03/2015 Orders Only [facility] Eag an Type 2 diabetes mellitus wit hout complication (H); [address] Abnormal finding on thyroid function test [place] [phone] Social History Tobacco Use Types Packs/Day Years [...] How often do you attend religion or protestant Patient refused 08/08/2019 services? Do [...] stimulating immunoglobulin (12/03/2015 8:50 AM CDT) [facility] Method Time Signature Thyroid Stim <1.0 [place] Immunog Reference range: <=1.3 CLINICS Unit: TSI index JACLYN (Note) Test Performed by: [place] [id number] Edger Automatic: Huseyin Dash II, M.D., Ph.D. Specimen Anatomical Collection Method Collection Time Receive d Time (Source) Location / / Volume Laterality Blood specimen 12/03/2015 8:50 AM 016 8:55 (specimen) CDT AM CDT Vanda Guerrero MD LAB - BLOOD ORDERABLES Performing Organization Address City/[facility]/ZIP Code Phon e Number [place] [id number] [place] [address] TSH with free T4 reflex (12/03/2015 8:50 AM CDT) athologist Signature TSH 3.93 0.40 - 4.00 [facility] mU/L [facility] Specimen Anatomical Collection Method Collection Time Receive d Time (Source) Location / / Volume Laterality Blood specimen 12/03/2015 8:50 AM 016 8:55 (specimen) CDT AM CDT Vanda Guerrero MD LAB - BLOOD ORDERABLES Performing Organization Address City/[facility]/ZIP Code Phon e Number [facility] [address] [place] [address] Lipid panel reflex to direct LDL (12/03/2015 8:50 AM CDT) P athologist Signature Cholesterol 152 <200 mg/dL [facility] Triglycerides 109 <150 mg/dL [facility] S [facility] Comment: Fasting specimen HDL Cholesterol 51 >49 mg/dL [place] [facility] CS [facility] LDL Cholesterol Calculated 79 <100 mg/dL [facility] Comment: Desirable: <100 mg/dl Non HDL Cholesterol 101 <130 mg/dL [facility] Specimen Anatomical Collection Method Collection Time Receive d Time (Source) Location / / Volume Laterality Blood specimen 12/03/2015 8:50 AM 016 8:55 (specimen) CDT AM CDT Vanda Guerrero MD LAB - BLOOD ORDERABLES Performing Organization Address City/[facility]/ZIP Code Phon e Number [facility] [address] [place] [address] documented in this encounter Visit Diagnoses Diagnosis Type 2 diabetes mellitus without complic ation (H) Abnormal finding on thyroid function shirley t Nonspecific abnormal results of thyroid function study documented in this encounter Additional Health Concerns Assessment Noted Time PHQ-9 Depression Total Score: 13 07/09/2015 7:49 AM CS T documented as of this encounter Care Teams Measurement And Verification Engineer Relationship Specialty Start Date End Date Vanda Guerrero MD PCP - General Internal Medicine 04/08/15 01/08/19 [address] [facility] [place] [address] documented as of this encounter
--- OUTSIDE RECORDS SUMMARY | 2022-02-06 10:18 | XMS_ITS | Encounter Summary ---
:1965 Author Organization [facility] Address [address] [place] [address] Care Team Providers Name Role Phone Vanda Borja MD Primary Care Provider [phone] Reason for Visit Reason Comments Physical Encounter Details Date Type Department Care Team Description 05/03/2016 Office Visit [facility] Vanda Borja for routine adult health examination with abnormal findings (Primary Dx); Pino Toribio MD Postmenopausal bleeding; [address] [facility] Moderate episode of recurren t major depressive disorder (H); DAVID Pringle DR Type 2 diabetes mellitus without complic ation, without long-term current use of insulin (H); [address] [place] [address] Fibromyalgia; [phone] Hyperlipidemia LDL goal <100; (Work) Gastroesophageal reflux [...] How often do you attend mormonism or oriental orthodox Patient refused 08/08/2019 services? [...] Comments Blood Pressure 122/78 05/03/2016 11:19 AM MEDICAL RECRUITER Pulse 72 05/03/2016 11:19 AM MEDICAL RECRUITER Temperature 36.4 ??C (97.6 ??F) 05/03/2016 11:19 AM MEDICAL RECRUITER Respiratory Rate - - Oxygen Saturation - - Inhaled Oxygen Concentration - - Weight 85.3 kg (188 lb) 05/03/2016 11:19 AM MEDICAL RECRUITER Height 157.5 cm (5' 2) 05/03/2016 11:19 AM MEDICAL RECRUITER Body Mass Index 34.39 05/03/2016 11:19 AM MEDICAL RECRUITER documented in this encounter Patient Instructions Patient InstructionsJodeetoanRejiLori Thomas - 05/03/2016 10:[address] [facility] ([place], [place]) Radiology: [phone] - call to set up pelvic ultrasound, then make appointment with ELECTROMECHANICAL ASSEMBLER here after that - Dr Nelson or [...] doctor every 1 to 2 years. ??? CAL RECRUITER documented in this encounter Progress Notes Vanda [...] recommended All Histories reviewed and updated in [facility]. ROS: 10 point ROS neg other than the symptoms noted above in the HPI. Problem list, Medication list, Allergies, and Medical/Social/Surgical histories reviewed in [facility] andupdated as appropriate. OBJECTIVE: BP 122/78 [...] have US and then follow up with Steward/Stewardess Chief Cargo Vessel 3. Moderate episode of recurrent major depressive [...] in addition to RHM. Vanda Borja MD [facility] [place] CAL RECRUITER documented in this encounter Nursing Notes Lori [...] kg). BP completed using cuff size: regular CAL RECRUITER documented in this encounter Plan of Treatment Not on filedocumented as of this encounter Procedures Procedure Name Priority Date/Time Associated Diagnosis Comme nts HPV HIGH RISK TYPES Routine 05/03/2016 12:17 PM Cervical cance r Results for this DNA CERVICAL MEDICAL RECRUITER screening procedure are i n the results section. PAP IMAGED THIN Routine 05/03/2016 12:00 AM Cervical cancer Re sults for this LAYER SCREEN MEDICAL RECRUITER screening procedure are i n the results section. documented in this encounter Results US Pelvic Complete with Transvaginal (05/05/2016 2:41 PM MEDICAL RECRUITER) Anatomical Region Laterality Modality Abdomen/Pelvis Ultrasound Specimen (Source) Anatomical Location Collection Method / Collectio n Time Received Time / Laterality Volume Impressions 05/05/2016 3:32 PM MEDICAL RECRUITER IMPRESSION: 3.2 cm intramural fibroid. No endometrial thickening. Minimal free pelvic fluid is noted. Ovar ies are unremarkable and appear atrophic. BRIDGETTE LOZA MD Narrative 05/05/2016 3:32 PM MEDICAL RECRUITER US PELVIC COMPLETE WITH TRANSVAGINAL 05/05/2016 2:41 [...] Risk Types DNA Cervical (05/03/2016 12:17 PM MEDICAL RECRUITER) Component Value Ref Test Analysis Performed At [facility] Range Method Time Signature HPV 16 DNA Negative NEG [facility] HPV 18 DNA Negative NEG [facility] Other HR HPV Negative NEG [facility] Final This patient's sample is negative for HPV DNA. [facility] Diagnosis (Note) OF [place] METHODOLOGY: ??The Alaina kandy 4800 system uses [...] and its performance characteristics determined by the [facility], [place] [facility]. It has not been cleared or approved by the FDA. The laboratory is regulated under CLIA as qualified to perform high-complexity testing. This test is used for clinical purp oses. It should not be regarded as investigational or for research. Specimen Cervical Cells [facility] Description C16 [id number] OF [facility] Specimen Anatomical Collection Method Collection Time Receive d Time (Source) Location / / Volume Laterality Cervical Cells 05/03/2016 12:17 6 PM MEDICAL RECRUITER 12:20 PM MEDICAL RECRUITER Vanda Borja MD LAB - BLOOD ORDERABLES Performing Organization Address City/State/ZIP Code Phon e Number [facility] [address] Pap imaged thin layer screen with HPV - recommended age 30 - 65 years (select HPV order below) (05/03/2016 12:00 AM MEDICAL RECRUITER) Component Value Ref Test Analysis Performed At [facility] Range Method Time Signature PAP NIL COPATH Copath Report COPATH Patient Name: MEGAN CHOI MR#: [id number] Specimen #: [id number] Collected: 05/03/2016 Received: 05/05/2016 Reported: 05/09/2016 08:26 [...] TARIQ Wick (ASCP) Processed and screened at [facility] CLINICAL HISTORY: LMP: 10/30/11 Post Menopausal, Previous normal pap Date of Last Pap: 10/06/14, Papanicolaou Test Limitations: ??Cervical cytology is a scre ening test with limited sensitivity; regular screening is critical for cancer prevention; Pap tests are primarily effective for the diagnosis/prevention of squamous cell carcinoma, not adenoca rcinomas or other cancers. TESTING LAB LOCATION: [address] ??[address] COLLECTION SITE: Client: ??[facility] Location: [facility] (R) Specimen (Source) Anatomical Collection Method Collection Time Re ceived Time Location / / Volume Laterality Cytologic 05/03/2016 05/05/2016 10:2 2 material AM MEDICAL RECRUITER (specimen) Vanda Borja MD LAB - OPTIME [...] documented as of this encounter Care Teams Nickel Plant Operator Relationship Specialty Start Date End Date Vanda Borja MD PCP - General Internal Medicine 04/08/15 01/08/[address] [facility] [address] [place], DAVID [address] documented as of this encounter
--- OUTSIDE RECORDS SUMMARY | 2022-02-06 10:18 | XMS_ITS | Encounter Summary ---
:1965 Author Organization [facility] Address [address] [place] [address] Care Team Providers Name Role Phone Vanda Guerrero MD Primary Care Provider [phone] Reason for Visit Reason Onset Date Comments Panel Management 03/09/2016 Encounter Details Date Type Department Care Team Description 03/09/2016 Telephone [facility] Vanda Lal, Panel Management 1440 [facility] DAVID Dobbs [address] 1654 [facility] [phone] [facility] DAV[place] [address] (Wo [...] clubs or organizations such as Sarahi 08/08/2019 rastafari groups, unions, fraternal or athletic [...] documented as of this encounter Care Teams Pattern Puncher Relationship Specialty Start Date End Date Vanda Guerrero MD PCP - General Internal Medicine 04/08/15 01/08/19 [address] [facility] [address] [place], DAVID [address] documented as of this encounter
--- OUTSIDE RECORDS SUMMARY | 2022-02-06 10:18 | XMS_ITS | Encounter Summary ---
:1965 Author Organization [facility] Address [address] [place] [address] Care Team Providers Name Role Phone Vanda Guerrero MD Primary Care Provider [phone] Reason for Visit Reason Onset Date Comments Schedule Surgery 05/17/2016 Encounter Details Date Type Department Care Team Description 05/17/2016 Telephone [facility] Agatha Null, MARÍA, Schedule Surgery [facility] and [address] [place] [address] Ankle Surgery [place], [place] [phone] [place] [address] DR [address] [phone] [facility] [phone] [place], [place] [address] (Wo rk) Social History [...] How often do you attend anabaptist or oriental orthodox Patient refused 08/08/2019 services? [...] 06/08/16 @ 10:[address] Null at [facility]. Details confirmed with patient. Thank you. ? DIAGNOSIS: left peroneal tendon tear PROCEDURES: ??Left peroneal tendon repair/transfer Site: ??Left Length of case: ??60 min [place]: ?? No ANESTHESIA: General Popliteal Block: ??Yes Tourniquet: t high ?? PATIENT POSITION: ??Lateral left up Antibiotics: ??Give before surgery Same day EQUIPMENT: ??Mini c-arm, podiatry set, tenotomy scissors, 2-prolene,and 3-0 fiberwire REVIEW SPECIALIST documented in this encounter Plan of Treatment Not on filedocumented as of this encounter Visit Diagnoses Not on filedocumented in this encounter Additional Health Concerns Assessment Noted Time PHQ-9 Depression Total Score: 11 05/02/2016 7:09 AM CS T documented as of this encounter Care Teams Personnel Director Relationship Specialty Start Date End Date Vanda Guerrero MD PCP - General Internal Medicine 04/08/15 01/08/19 1806 [facility] [place] [address] documented as of this encounter
--- OUTSIDE RECORDS SUMMARY | 2022-02-06 10:18 | XMS_ITS | Encounter Summary ---
:1965 Author Organization [place] Address [address] [place] [address] Care Team Providers Name Role Phone Vanda Guerrero MD Primary Care Provider [phone] Reason for Visit Reason Comments Consult follow-up regarding US done 05/05/16 - post menopausal bleeding x's 1 episode - 04/16-04/19 Encounter Details Date Type Department Care Team Description 05/11/2016 Office Visit [facility] Kodama, Christy Vagina l bleeding Pino Donnelly MD (Primary Dx) 1440 [facility] [employer] [facility] [place] [address] [place] [address] [place] [address] DAV[place] [address] (Wo rk) Social History [...] How often do you attend shinto or advent Patient refused 08/08/2019 services? Do [...] Comments Blood Pressure 110/68 05/11/2016 1:58 PM ROTARY CUTTER FEEDER Pulse 72 05/11/2016 1:58 PM ROTARY CUTTER FEEDER Temperature - - Respiratory Rate - - Oxygen Saturation - - Inhaled Oxygen Concentration - - Weight 85.3 kg (188 lb) 05/11/2016 1:58 PM ROTARY CUTTER FEEDER Height - - Body Mass Index 34.39 05/03/2016 11:19 AM ROTARY CUTTER FEEDER documented in this encounter Progress Notes Kallie [...] regular Nurse assisted visit. Kallie Blanco MA. RY CUTTER FEEDER Christy Ibarra MD - 05/11/2016 12:50 PM CST Subjective: Megan Choi, a 51 y/o female, presents for follow up of pelvic US. Patient reports light vaginal bleeding 04/16/16-04/19/16. [place] like a period, +PMS, breast tenderness,pelvic pressure. Reports pelvic pressure since February. Confirms minimal discharge, has now stopped. Denies bladder or bowel problems. Sexually active, endorses dyspareunia alleviated with estrace cream. Denies any other CERTIFIED NURSE MIDWIFE related problems. Patient notes persistent fatigue. Reports [...] ??? Cardiovascular Mother [place] age 72 ??? Cardiovascular Father [place] early 40s, subsequent bipass ??? DIABETES Mother [...] behalf by Gisele Newberry, a trained medical hospital sales. The creation of this document is based the provider's statements to the medical hospital sales. Gisele Newberry May 11, 2016 12:50 [...] in this document, created by the medical hospital sales for me, accurately reflects the services I personally performed and the decisions made by me. I have reviewed and approved this document for accuracy prior to leaving the patient care area. 05/11/2016 12:51 PM Christy Ibarra M.D. RY CUTTER FEEDER documented in this encounter Plan of Treatment Not on filedocumented as of this encounter Visit Diagnoses Diagnosis Vaginal bleeding - Primary Other specified noninflammatory disorder of vagina documented in this encounter Additional Health Concerns Assessment Noted Time PHQ-9 Depression Total Score: 11 05/02/2016 7:09 AM CS T documented as of this encounter Care Teams Research Hydrologist Relationship Specialty Start Date End Date Vanda Guerrero MD PCP - General Internal Medicine 04/08/15 01/08/19 9317 [facility] [place] [address] documented as of this encounter
--- OUTSIDE RECORDS SUMMARY | 2022-02-06 10:18 | XMS_ITS | Encounter Summary ---
:1965 Author Organization [place] Address [address] [place] [address] Care Team Providers Name Role Phone Vanda Guerrero MD Primary Care Provider [phone] Encounter Details Date Type Department Care Team Description 04/04/2016 Radiant Appointment [facility] Agatha Null, Pain in both feet [facility] [place], [address] [facility] Podiatry/Foot and [place], [place] Ankle Surgery [address] [place] [phone] [facility] [address] [place] [address] Social History Tobacco Use Types [...] documented as of this encounter Care Teams Cia Agent Relationship Specialty Start Date End Date Vanda Guerrero MD PCP - General Internal Medicine 04/08/15 01/08/19 7808 [facility] [place] [address] documented as of this encounter
--- OUTSIDE RECORDS SUMMARY | 2022-02-06 10:18 | XMS_ITS | Encounter Summary ---
:1965 Author Organization [place] Address [address] [place] [address] Care Team Providers Name Role Phone Vanda Guerrero MD Primary Care Provider [phone] Reason for Visit Reason Onset Date Comments Refill Request 12/23/2015 TOPIRAMATE 50MG Refill Request 12/23/2015 OMEPRAZOLE 20MG Encounter Details Date Type Department Care Team Description 12/23/2015 Refill [facility] Vanda Lal, Refill Request 1440 Priscilla Bass MD (TOPIRAMATE 50MG); [place] [address] [facility] Refill Request [phone] NASIR ANDRE (OMEPRAZOLE 20MG) [place] [address] [...] # refills: PRN Last Office Visit with [facility] or Health prescribing provider: 12/22/2015 BP Readings from Last 3 Encounters: 12/22/15 110/76 11/01/15 114/66 09/29/15 114/68 CREATININE Date Value Ref Range Status 09/30/2015 0.67 0.52 - 1.04 mg/dL Final OMEPRAZOLE 20MG Last Written Prescription Date: 10/06/2014 Last Fill Quantity: 90, # refills: PRN Last Office Visit with [facility], [facility] or [facility] prescribing provider: 12/22/2015 documented in this encounter [...] documented as of this encounter Care Teams Dictating Machine Transcriber Relationship Specialty Start Date End Date Vanda Guerrero MD PCP - General Internal Medicine 04/08/15 01/08/19 1747 [facility] [place] [address] documented as of this encounter
--- OUTSIDE RECORDS SUMMARY | 2022-02-06 10:19 | XMS_ITS | Encounter Summary ---
:1965 Author Organization [place] Address [address] [place] [address] Care Team Providers Name Role Phone Selma Good APRN OPERATIONS INSPECTOR Primary Care Provider [phone] Reason for Visit Reason Comments Pain caudal TRACE Encounter Details Date Type Department Care Team Description 01/12/[address] [facility] Teagan Solares Lumbosacra l spondylosis without myelopathy (Primary Dx); Injection Office Pain Management DO Noreen Lumbar radiculopathy Visit [address] [facility] [address] [place] [address] [place], [place] [phone] [address] (Work) [phone] Social History Tobacco Use Types Packs/Day Years [...] How often do you attend samaritan or holiness Patient refused 08/08/2019 services? Do [...] Santana RN - 01/12/2015 8:40 AM CDT [facility] Procedure Discharge Instructions Nurse line: [phone] Appt line: [phone] Teagan Solares You had [...] center nursing line during work hours at [phone] or eight section blower physician after hours at [phone]: -Fever over 100 degree F -Swelling, bleeding, redness, drainage, warmth at the injection site -Progressive weakness or numbness on your legs or arms -Loss of bowel or bladder function -Unusual headache that is not relieved by Tylenol -Unusual new onset of pain that is not improving documented in this encounter Progress Notes Teagan Solares DO - 01/12/2015 9:20 AM CDT [facility] - Procedure Note Date of Service: 01/12/15 Procedure performed: caudal epidural steroid injection with fluoroscopic guidance Diagnosis: Lumbar spondylosis; Lumbar radiculitis/radiculopathy Budget Technician: Teagan Solares DO Anesthesia: none Indications: Megan [...] the patient was advised to contact the [facility] for any of the [...] and for post-procedure evaluation. Teagan Solares DO [facility] documented in this encounter Nursing Notes [...] patient home? Yes Signature/Title: SHALA SANTANA RN Glove Sewer [facility] Shala Santana RN - 01/12/2015 8:27 AM [...] active infection? 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 Not Applicable Are the vital signs normal? Yes ANDREW Mack, RN-BC Glove Sewer [facility] documented in this encounter Plan of Treatment Not on filedocumented as of this encounter Visit Diagnoses Diagnosis Lumbosacral spondylosis without myelopat hy - Primary Lumbar radiculopathy Thoracic or lumbosacral neuritis or radi culitis, unspecified documented in this encounter Care Teams Industrial Nurse Relationship Specialty Start Date End Date Danilo-Selma Mccoy APRN OPERATIONS INSPECTOR PCP - General 04/09/08 04/07/15 1643 [facility] [place] [address] documented as of this encounter
--- OUTSIDE RECORDS SUMMARY | 2022-02-06 10:19 | XMS_ITS | Encounter Summary ---
:1965 Author Organization [place] Address [address] [facility] [place] [address] Care Team Providers Name Role Phone Selma Good APRN COUNTING MACHINE OPERATOR Primary Care Provider [phone] Reason for Visit Reason Onset Date Comments Patient/info Update 01/19/2015 Post LESI Encounter Details Date Type Department Care Team Description 01/19/2015 Telephone [facility] Pain Teagan Solares, Patient/info Update Management Center DO (Post LESI) [address] [place] [address] PAIN [place] [address] [facility] [place], [place] [address] [facility] [place] [address] [place] [address] [phone] Social History Tobacco Use Types Packs/Day Years [...] How often do you attend jew or denominational Patient refused 08/08/2019 services? Do [...] pt should call the nurse line at [phone]. Lashae Stack(R) documented in this encounter Plan of Treatment Not on filedocumented as of this encounter Visit Diagnoses Not on filedocumented in this encounter Care Teams Billiard Table Assembler Relationship Specialty Start Date End Date Selma Good APRN COUNTING MACHINE OPERATOR PCP - General 04/09/08 04/07/15 8035 [facility] [place] [address] documented as of this encounter
--- OUTSIDE RECORDS SUMMARY | 2022-02-06 10:19 | XMS_ITS | Encounter Summary ---
:1965 Author Organization [place] Address [address] [place] [address] Care Team Providers Name Role Phone Selma Good APRN MICA LAMINATING MACHINE FEEDER Primary Care Provider [phone] Reason for Visit Reason Onset Date Comments Refill Request 01/25/2015 OUNE TOUCH ULTRA SATISH T STRIPS Encounter Details Date Type Department Care Team Description 01/25/2015 Refill [facility] Eag Selma Anthony Refill Request (OUNE 1440 N-Sided [place] MICA LAMINATING MACHINE FEEDER TOUCH ULTRA TEST STRIPS) [place] [address] [facility] [phone] [facility] [place] [address] (Wo rk) Social [...] How often do you attend jew or mosque Patient refused 08/08/2019 services? Do [...] uncontrolled documented in this encounter Care Teams Sensor Specialist Relationship Specialty Start Date End Date Danilo-Selma Mccoy, EXTRUSION TECHNICIAN MICA LAMINATING MACHINE FEEDER PCP - General 04/09/08 04/07/15 5518 [facility] [place] [address] documented as of this encounter
--- OUTSIDE RECORDS SUMMARY | 2022-02-06 10:19 | XMS_ITS | Encounter Summary ---
:1965 Author Organization [place] Address [address] [place] [address] Care Team Providers Name Role Phone Selma Good APRN, CNP Primary Care Provider [phone] Reason for Referral - Closed Specialty Diagnoses / Procedures Referred By Contact Refer red To Contact Diagnoses Degenerative disc disease [place] Main APRN CNP [facility] [address] [facility] [address] [place] [address] Referral ID Status Reason Start Date Expiration Date Visits Requ ested Visits Authorized [id number] Closed 01/08/2015 01/08/2016 1 1 Encounter Details Date Type Department Care Team Description 01/08/2015 Orders Only [facility] [place] Main cleopatra disc Neurosurgery Clinic SEAN Angeles P disease (Primary Dx) Bozena [facility] [address] [facility] [address] [facility] [address] [place] [address] [phone] Social History Tobacco Use Types Packs/Day Years [...] How often do you attend yazidi or roman catholic Patient refused 08/08/2019 services? [...] Name Type Priority Associated Diagnoses Order [facility] Referral Routine Degenerative disc Ordered: 01/08/2015 ([place]) REFERRAL disease documented as of this encounter Visit Diagnoses Diagnosis Degenerative disc disease - Primary Degeneration of intervertebral disc, sit e unspecified documented in this encounter Care Teams Biomedical Engineering Professor Relationship Specialty Start Date End Date Selma Good APRN [employer]OMOTIONAL SALES PCP - General 04/09/08 04/07/15 1458 [facility] [place] [address] documented as of this encounter
--- OUTSIDE RECORDS SUMMARY | 2022-02-06 10:19 | XMS_ITS | Encounter Summary ---
:1965 Author Organization [place] Address [address] [place] [address] Care Team Providers Name Role Phone Vanda Guerrero MD Primary Care Provider [phone] Reason for Visit Reason Onset Date Comments Refill Request 09/10/2015 METFORMIN HCL 500MG Encounter Details Date Type Department Care Team Description 09/10/2015 Refill [facility] Vanda Lal, Refill Request 1440 Priscilla Bass MD (METFORMIN HCL 500MG) [place] [address] 7[address] [facility] [phone] [facility] [place] [address] (Wo rk) Social [...] How often do you attend yazidism or scientologist Patient refused 08/08/2019 services? Do [...] PM CDT Prescription refilled x 1 per [facility] Refill Protocol. Has follow up scheduled. Telephone Encounter - Eri Middleton - 09/10/2015 11:17 AM CDT METFORMIN HCL 500MG Last Written Prescription Date: 06/10/2015 Last Fill Quantity: 180, # refills: 0 Last Office Visit with [facility], P or [facility] prescribing provider: 07/08/2015 Next 5 appointments (look out 90 days) Sep 29, 2015 9:40 AM MyChart Carlos with Vanda Guerrero MD [facility] ([facility]) 1440 [facility] [place] [address] MICROL <5 08/10/2014 [...] documented as of this encounter Care Teams Siebel Consultant Relationship Specialty Start Date End Date Vanda Guerrero MD PCP - General Internal Medicine 04/08/15 01/08/[address] [place] [address] [place] [address] documented as of this encounter
--- OUTSIDE RECORDS SUMMARY | 2022-02-06 10:19 | XMS_ITS | Encounter Summary ---
:1965 Author Organization [place] Address [address] [place] [address] Care Team Providers Name Role Phone Selma Good APRN TEXTURING MACHINE FIXER Primary Care Provider [phone] Encounter Details Date Type Department Care Team Description 03/24/2015 Orders Only [facility] Florentino, Type 2 diab etes mellitus without complication (H) (Primary Dx); [place] APRN Obesity [address] TEXTURING MACHINE FIXER [place] [address] [facility] [phone] [facility] [place] [address] Social History Tobacco [...] How often do you attend methodist or samaritan Patient refused 08/08/2019 services? Do [...] unspecified documented in this encounter Care Teams Lowerator Operator Relationship Specialty Start Date End Date Danilo-Selma Mccoy, SAW RUNNER TEXTURING MACHINE FIXER PCP - General 04/09/08 04/07/[address] [facility] [address] [place], [place] [address] documented as of this encounter
--- OUTSIDE RECORDS SUMMARY | 2022-02-06 10:19 | XMS_ITS | Encounter Summary ---
:1965 Author Organization [place] Address [address] [place] [address] Care Team Providers Name Role Phone Selma Good APRN ELECTRON BEAM WELDER SETTER Primary Care Provider [phone] Reason for Visit Reason Onset Date Comments Other 01/08/2015 Encounter Details Date Type Department Care Team Description 01/08/2015 Telephone [facility] Neurosurgery [place], Angella [place], Other Clinic [place] HELIOTHERAPIST ELECTRON BEAM WELDER SETTER 5688 [facility] ORTHOPEDICS [address] [place] [address] 201 [place], [place] [address] (Wo rk) Social History [...] How often do you attend yazdanism or anglican Patient refused 08/08/2019 services? Do [...] and lumbar spine. Recommend injection therapy. Referredto [facility]. documented in this encounter Plan of Treatment Not on filedocumented as of this encounter Visit Diagnoses Not on filedocumented in this encounter Care Teams Project Management Instructor Relationship Specialty Start Date End Date Selma Good APRN CNP PCP - General 04/09/08 04/07/15 [address] [facility] [address] [place], [place] [address] documented as of this encounter
--- OUTSIDE RECORDS SUMMARY | 2022-02-06 10:19 | XMS_ITS | Encounter Summary ---
:1965 Author Organization [place] Address [address] [place] [address] Care Team Providers Name Role Phone Selma Good APRN TRAVEL SERVICE CONSULTANT Primary Care Provider [phone] Reason for Visit Reason Comments Neurologic Problem Neck/low back pain Encounter Details Date Type Department Care Team Description 12/29/2014 Office Visit [facility] [place] Main Status p ost lumbar spinal fusion (Primary Dx); Neurosurgery Clinic SEAN Angeles CN P Status post cervical spinal fusion [facility] ORTHOPEDICS [address] [place] [address] [address] [place] [address] [address] [place], [place] [address] [phone] Social History Tobacco Use Types Packs/Day Years [...] How often do you attend anabaptism or hindu Patient refused 08/08/2019 services? Do [...] 12/29/2014 10:[address] Raoul Danielson [facility] Neurosurgery Clinic Visit The following is a command and control specialist of a shared visit between Dr. [...] ops specialist [facility] Social History Main Topics ??? Smoking status: Never Smoker ??? Smokeless tobacco: Never Used ??? Alcohol Use: Yes Comment: Rare ??? Drug Use: No ??? Sexual Activity: Partners: Male Control/ Protection: Surgical Comment: Tubal Other Topics Concern ??? Parent/Sibling W/ Cabg, Mi Or Angioplasty Before 65f 55m? No Social History Narrative Family History Problem Relation Age of Onset ??? Cardiovascular Mother [place] age 72 ??? Cardiovascular Father [place] early 40s, subsequent bipass ??? Diabetes Mother [...] [place] Main CNP [facility] [place] [address] Pager [phone] Anna Mayberry - 12/29/2014 10:29 AM CDT [...] at C3-C4. RUPERTO SWAN MD [place] Main TRENCH DIGGING MACHINE OPERATOR TRAVEL SERVICE CONSULTANT IMG CT ORDERABLES CT Lumbar Spine w/o Contrast (01/08/2015 12:36 PM CDT) Anatomical Region Laterality Modality Spine, SUBRAD CT MSK, [facility] CT SPINE Compu jayne Tomography Specimen (Source) [...] sacroiliac joint. ABRAHAM BAEZ MD [place] Main TRENCH DIGGING MACHINE OPERATOR TRAVEL SERVICE CONSULTANT IMG CT ORDERABLES documented in this encounter Visit Diagnoses Diagnosis Status post lumbar spinal fusion - Prima ry Arthrodesis status Status post cervical spinal fusion Arthrodesis status Status post lumbar spinal fusion Arthrodesis status Status post cervical spinal fusion Arthrodesis status documented in this encounter Care Teams Gem Setter Relationship Specialty Start Date End Date Danilo-Selma Mccoy APRN TRAVEL SERVICE CONSULTANT PCP - General 04/09/08 04/07/15 1097 [facility] [place] [address] documented as of this encounter
--- OUTSIDE RECORDS SUMMARY | 2022-02-06 10:19 | XMS_ITS | Encounter Summary ---
:1965 Author Organization [place] Address [address] [place] [address] Care Team Providers Name Role Phone Selma Good APRN, CNP Primary Care Provider [phone] Reason for Visit Reason Onset Date Comments Refill Request 12/22/2014 LORATADINE-D 24 HOUR TABLET Encounter Details Date Type Department Care Team Description 12/22/2014 Refill [facility] Selma Hodges Refill Request 1440 Kanjoya SEAN Angeles CNP (LORATADINE-D 24 HOUR [place] [phone] 2[address] [facility] TABLET) [phone] [facility] [place] [address] [...] How often do you attend yarsanism or samaritan Patient refused 08/08/2019 services? Do [...] CDT Prescription printed, signed and put on MA/SPECIAL DIET COOK's desk. Thanks! Telephone Encounter - Marisa Matthew - 12/22/2014 4:42 PM CDT LORATADINE-D 24 HOUR TABLET Last Written Prescription Date: 12/17/2013 Last Fill Quantity: 90, # refills: PRN Last Office Visit with [facility] primary care provider: 12/09/2014 Future Office visit: Routing refill request to provider for review/approval because: Drug not on the [facility] refill protocol or controlled substance documented in this encounter Plan of Treatment Not on filedocumented as of this encounter Visit Diagnoses Diagnosis Seasonal allergic rhinitis - Primary Allergic rhinitis, cause unspecified documented in this encounter Care Teams Stroboroma Operator Relationship Specialty Start Date End Date Selma Good APRN IT SOLUTIONS ARCHITECT PCP - General 04/09/08 04/07/[address] [facility] [address] [place], [place] [address] documented as of this encounter
--- OUTSIDE RECORDS SUMMARY | 2022-02-06 10:19 | XMS_ITS | Encounter Summary ---
:1965 Author Organization [place] Address [address] [place] [address] Care Team Providers Name Role Phone Vanda Guerrero MD Primary Care Provider [phone] Reason for Visit Reason Onset Date Comments Refill Request 08/20/2015 tiZANidine (ZANAFLEX ) 4 MG tablet Encounter Details Date Type Department Care Team Description 08/20/2015 Refill [facility] Vanda Lal, Refill Request 1440 Priscilla Bass MD (tiZANidine (ZANAFLEX) [place] [phone] [place] [address] 4 MG tablet) [phone] [facility] DAV[place] [id number] (Wo rk) Social History Tobacco Use Types [...] How often do you attend sikhism or sikh Patient refused 08/08/2019 services? Do you belong to any clubs or organizations such as No 08/08/2019 sikhism groups, unions, [employer] or athletic groups, or school groups? How [...] # refills: 5 Last Office Visit with [facility] or Health prescribing provider: 04/08/15 Future Office visit: Routing refill request to provider for review/approval because: Drug not on the [facility] or Health refill protocol or controlled substance LASS FRAMES POLISHER documented in this encounter Plan of Treatment Not on filedocumented as of this encounter Visit Diagnoses Diagnosis Cervicalgia - Primary History of fusion of cervical spine Arthrodesis status History of lumbar fusion documented in this encounter Additional Health Concerns Assessment Noted Time PHQ-9 Depression Total Score: 13 07/09/2015 7:49 AM CS T documented as of this encounter Care Teams Porter Sample Case Relationship Specialty Start Date End Date Vanda Guerrero MD PCP - General Internal Medicine 04/08/15 01/08/[address] [facility] [address] [place], [place] [address] documented as of this encounter
--- OUTSIDE RECORDS SUMMARY | 2022-02-06 10:19 | XMS_ITS | Encounter Summary ---
:1965 Author Organization [place] Address [address] [facility] [place] [address] Care Team Providers Name Role Phone Selma Good APRN BOOKING MANAGER Primary Care Provider [phone] Reason for Visit Reason Onset Date Comments Patient/info Update 02/02/2015 Post FABIAN Encounter Details Date Type Department Care Team Description 02/02/[address] [facility] Pain Teagan Solares, Patient/info Update Management Center DO (Post FABIAN) [address] [place] [address] PAIN [address] [facility] [place], [place] [address] [address] [place] [address] [phone] Social History Tobacco Use Types Packs/Day Years [...] often do you attend oriental orthodox or taoist Patient refused 08/08/2019 services? [...] pt should call the nurse line at [phone]. Lashae Stack(R) documented in this encounter Plan of Treatment Not on filedocumented as of this encounter Visit Diagnoses Not on filedocumented in this encounter Care Teams Ecommerce Merchandising Manager Relationship Specialty Start Date End Date Selma Good APRN BOOKING MANAGER PCP - General 04/09/08 04/07/15 [address] [facility] [place] [address] documented as of this encounter
--- OUTSIDE RECORDS SUMMARY | 2022-02-06 10:19 | XMS_ITS | Encounter Summary ---
:1965 Author Organization [place] Address [address] [place] [address] Care Team Providers Name Role Phone Vanda Guerrero MD Primary Care Provider [phone] Reason for Visit Reason Onset Date Comments Refill Request 06/08/2015 METFORMIN HCL 500MG Encounter Details Date Type Department Care Team Description 06/08/2015 Refill [facility] Vanda Lal, Refill Request 1440 Priscilla Bass MD (METFORMIN HCL 500MG) [place] [phone] 30[address] [facility] [phone] [facility] [place] [id number] (Wo rk) [...] 06/10/2015 11:53 AM CST Prescription approved per [facility] Refill Protocol. Abigail Burciaga RN E SCENE EXAMINER Telephone Encounter - Eri Middleton - 06/08/2015 4:46 PM CST METFORMIN HCL 500MG Last Written Prescription Date: 10/06/2014 Last Fill Quantity: 180, # refills: 1 Last Office Visit with [facility] primary care provider: 04/08/2015 MICROL <5 08/10/2014 [...] 10/27/2013 3.8 3.4 - 5.3 mmol/L Final E SCENE EXAMINER documented in this encounter Plan of Treatment Not on filedocumented as of this encounter Visit Diagnoses Diagnosis Type 2 diabetes mellitus without complic ation - Primary documented in this encounter Care Teams Mechanical Engineering Draftsperson Relationship Specialty Start Date End Date Vanda Guerrero MD PCP - General Internal Medicine 04/08/15 01/08/19 4875 [facility] [place] [address] documented as of this encounter
--- OUTSIDE RECORDS SUMMARY | 2022-02-06 10:19 | XMS_ITS | Encounter Summary ---
:1965 Author Organization [place] Address [facility] [place] [address] Care Team Providers Name Role Phone Selma Good APRN DIRECTOR OF PARTNERSHIPS Primary Care Provider [phone] Reason for Visit (Routine) - Closed Specialty Diagnoses / Procedures Referred By Contact Refer red To Contact Radiology / Radiology. Diagnoses R#NA, BC, written order Sh Ct Scan Procedures CT LUMBAR SPINE WO [address] [place] [phone] Phone: Referral ID Status Reason Start Date Expiration Date Visits Requ ested Visits Authorized [id number] Closed 01/01/2015 01/01/2016 1 1 Encounter Details Date Type Department Care Team Description 01/08/2015 Hospital Encounter [facility], [facility] atus post lumbar [facility] SEAN [place] DIRECTOR OF PARTNERSHIPS spinal fusion [address] [place] [id number] ORTHOPEDICS [phone] [place] [address] Social History Tobacco Use Types Packs/Day Years [...] How often do you attend voodoo or yazidi Patient refused 08/08/2019 services? Do you belong to any clubs or organizations such as No 08/08/2019 voodoo groups, [employer], fraClick[employer]ale or athletic groups, or school groups? How [...] 2 times capsuleIndications: daily Fibromyalgia fluticasone (FLONASE) [place] 1-2 sprays into 3 Package 3 05/03/2016 [...] Region Laterality Modality Spine, SUBRAD CT MSK, [facility] CT SPINE Compu jayne Tomography Specimen (Source) [...] joint. ABRAHAM BAEZ MD Rosalia Main APRN DIRECTOR OF PARTNERSHIPS IMG CT ORDERABLES documented in this encounter Visit Diagnoses Diagnosis Status post lumbar spinal fusion Arthrodesis status documented in this encounter Care Teams Accountant Helper Relationship Specialty Start Date End Date Danilo-Selma Mccoy APRN DIRECTOR OF PARTNERSHIPS PCP - General 04/09/08 04/07/15 [address] [facility] [place] [address] documented as of this encounter
--- OUTSIDE RECORDS SUMMARY | 2022-02-06 10:19 | XMS_ITS | Encounter Summary ---
:1965 Author Organization [place] Address [address] [place] [address] Care Team Providers Name Role Phone Vanda Guerrero MD Primary Care Provider [phone] Reason for Visit Reason Comments RECHECK Follow up neurologist Flu Shot Encounter Details Date Type Department Care Team Description 04/08/2015 Office Visit [facility] Vanda Guerrero bola (Primary Dx); Pino Toribio MD Type 2 diabetes mellitus without complic ation (H); [address] Hyperlipidemia LDL goal <100 ; [place] [address] [facility] Hypertension goal BP (blood pressure) < 130/80; [phone] [place] [address] History of lumbar fusion; [phone] History of fusi on of cervical spine; [...] How often do you attend cheondoism or amish Patient refused 08/08/2019 services? Do [...] weeks - either in person or via [employer] to update me on how you are doing Schedule your mammogram - either with our mobile unit ([phone]) or at the hospital ([phone]) documented in this encounter Progress Notes Lori [...] the person to be vaccinated ever had Guillain-Hollytree syndrome? No Form completed by patient Vanda [...] list, Allergies, and Medical/Social/Surgical histories reviewed in [facility] andupdated as appropriate. ROS: Constitutional, msk, [...] can't afford to repeat. Planning on other fdc pain strategies. Continue cymbalta for now, add [...] SPLIT VIRUS IM > 3 YO (QUADRIVALENT) [16735] Vaccine Administration, Initial [41260] 10. Migraine without status migrainosus, not intractable, [...] weeks - either in person or via H2Sonicshart to update me on how you are doing Schedule your mammogram - either with our mobile unit ([phone]) or at the hospital ([phone]) Vanda Guerrero MD [facility]] documented in this encounter Nursing Notes Lori [...] MA Screening Digital Bilateral (04/16/2015 11:13 AM SENIOR ANALYST DEVELOPER) Anatomical Region Laterality Modality Breast Bilateral Mammography Specimen (Source) Anatomical Location Collection Method / Collectio n Time Received Time / Laterality Volume Impressions 04/16/2015 12:41 PM SENIOR ANALYST DEVELOPER IMPRESSION: BI-RADS CATEGORY: 1 - ??NEGATIVE. RECOMMENDED FOLLOW-UP: Annual Mammograph y Exam results letter mailed to patient. BRIGIDO RDZ MD Narrative 04/16/2015 12:41 PM SENIOR ANALYST DEVELOPER SCREENING MAMMOGRAM, BILATERAL, DIGITAL w/CAD - 04/16/2015 [...] Signature Hemoglobin A1C 6.0 4.3 - 6.0 [facility] Specimen Anatomical Collection Method Collection Time Receive d Time (Source) Location / / Volume Laterality Blood specimen 04/08/2015 11:58 5 (specimen) AM CDT 11:59 AM CDT Vanda Guerrero MD LAB - BLOOD ORDERABLES Performing Organization Address City/[facility]/ZIP Code Phon e Number [facility] [address] [place] [address] Ferritin (04/08/2015 11:58 AM CDT) athologist Signature Ferritin 31 8 - 252 [facility] ng/mL [facility] Specimen Anatomical Collection Method Collection Time Receive d Time (Source) Location / / Volume Laterality Blood specimen 04/08/2015 11:58 5 (specimen) AM CDT 11:59 AM CDT Vanda Guerrero MD LAB - BLOOD ORDERABLES Performing Organization Address [facility]/ZIP Code Phon e Number [facility] [address] [place] [address] TSH with free T4 reflex (04/08/2015 11:58 AM CDT) athologist Signature TSH 1.84 0.40 - 4.00 [facility] mU/L [facility] Specimen Anatomical Collection Method Collection Time Receive d Time (Source) Location / / Volume Laterality Blood specimen 04/08/2015 11:58 5 (specimen) AM CDT 11:59 AM CDT Vanda Guerrero MD LAB - BLOOD ORDERABLES Performing Organization Address City/[facility]/ZIP [facility] [place] Phon e Number [facility] [address] [place] [address] CBC with platelets (04/08/2015 11:58 AM CDT) athologist Signature WBC 5.4 4.0 - 11.0 [place] 10e9/L [facility] RBC Count 4.09 3.8 - 5.2 [place] 10e12/L [facility] Hemoglobin 13.1 11.7 - [place] 15.7 g/dL [facility] Hematocrit 39.9 35.0 - [place] 47.0 % [facility] MCV 98 78 - 100 [place] fl [facility] MCH 32.0 26.5 - [place] 33.0 pg [facility] MCHC 32.8 31.5 - [place] 36.5 g/dL [facility] RDW 12.7 10.0 - [place] 15.0 % [facility] Platelet Count 260 150 - 450 [place] 10e9/L [facility] Specimen Anatomical Collection Method Collection Time Receive d Time (Source) Location / / Volume Laterality Blood specimen 04/08/2015 11:58 5 (specimen) AM CDT 11:59 AM CDT Vanda Guerrero MD LAB - BLOOD ORDERABLES Performing Organization Address City/State/ZIP Code Phon e Number [facility] [address] [place] [address] Vitamin D Deficiency (04/08/2015 11:58 AM CDT) athologist Signature Vitamin D 32 20 - 75 [facility] Deficiency ug/L [facility] Comment: Season, race, dietary intake, and treatm ent affect the concentration of 73-cwiagvj-Wxrshvp D. Values may decrea se during winter [...] Address City/State/ZIP Code Phon e Number [address] (ABNORMAL) Vitamin B12 (04/08/2015 11:58 AM CDT) athologist Signature Vitamin B12 1,224 (H) 193 - 986 [facility] pg/mL [facility] Comment: Interp: [phone] = Normal Specimen Anatomical Collection Method Collection Time Receive d Time (Source) Location / / Volume Laterality Blood specimen 04/08/2015 11:58 5 (specimen) AM CDT 11:59 AM CDT Vanda Guerrero MD LAB - BLOOD ORDERABLES Performing Organization Address City/[facility]/ZIP Code Phon e Number [id number] [place] [address] (ABNORMAL) Vitamin B6 (04/08/2015 11:58 AM CDT) athologist Signature Vitamin B6 330.6 (H) [facility] Comment: Reference range: 20.0 to 125.0 Unit: nmol/L (Note) INTERPRETIVE INFORMATION: Vitamin B6 (Py ridoxal 5-Phosphate) Pyridoxal 5'-phosphate measured in a spe cimen collected following an 8-hour or overnight fast ac curately indicates vitamin B6 nutritional status. Non-fasti ng specimen concentration reflects recent vitamin in take. Test developed and characteristics deter mined by [employer]. See Compliance Statement B : [employer]CS Performed by [employer], [address] [place] [id number] [email or web address], Jae Botello MD, L ab. Director Specimen Anatomical Collection Method Collection Time Receive d Time (Source) Location / / Volume Laterality Blood specimen 04/08/2015 11:58 5 (specimen) AM CDT 11:59 AM CDT Vanda Guerrero MD LAB - BLOOD ORDERABLES Performing Organization Address City/[facility]/ZIP Code Phon e Number [address] [address] documented in this encounter Visit Diagnoses Diagnosis [...] mammogram documented in this encounter Care Teams Sausage Inspector Relationship Specialty Start Date End Date Vanda Guerrero MD PCP - General Internal Medicine 04/08/15 01/08/[address] [facility] [address] [place], [place] [address] documented as of this encounter
--- OUTSIDE RECORDS SUMMARY | 2022-02-06 10:19 | XMS_ITS | Encounter Summary ---
:1965 Author Organization [place] Address [address] [facility] [place] [address] Care Team Providers Name Role Phone Selma Good APRN ASSISTANT SPEECH LANGUAGE PATHOLOGIST Primary Care Provider [phone] Reason for Visit Reason Onset Date Comments Procedure 01/08/2015 Encounter Details Date Type Department Care Team Description 01/08/2015 Telephone [facility] Pain Pain Management Pr nela, Procedure [facility] [address] [place], [place] [phone] Social History Tobacco Use [...] be done at which interventional clinic site? [facility] Procedure ordered by Dr. Main Procedure ordered? [...] or notify pt of denial. Is an maintenance person needed? No Patient has a drive home? [...] ?? If so, was it done at [facility]? Yes ?? If not, where was it done? Was the MRI done w/in the last 3 years? Yes If MRI was not done at [facility], [facility] do NOT schedule. Route to [...] the patient have any questions? Halie Siddiqui [facility] Telephone Encounter - Veronica Porter RN - 01/08/2015 3:46 PM CDT Routing to front load trash truck driver to schedule patient for LESI vs other lumbar procedure TBD by pain specialist.Please include in the visit note that order is for lumbar injection first, then cervical, and that patient has history of spine surgery. Veronica Porter [facility] Telephone Encounter - Yvonne Cedillo - 01/08/2015 2:02 PM CDT Procedure or injection only (pt will be contacted within 24 hrs to schedule): Lumbar injections thencervical. Please advise on scheduling. Yvonne Cedillo [employer] [facility] documented in this encounter Plan of Treatment Not on filedocumented as of this encounter Visit Diagnoses Not on filedocumented in this encounter Care Teams Seed Analyst Relationship Specialty Start Date End Date Danilo-Selma Mccoy, SEAN ASSISTANT SPEECH LANGUAGE PATHOLOGIST PCP - General 04/09/08 04/07/15 [address] [facility] [place] [address] documented as of this encounter
--- OUTSIDE RECORDS SUMMARY | 2022-02-06 10:19 | XMS_ITS | Encounter Summary ---
:1965 Author Organization [place] Address [address] [place] [address] Care Team Providers Name Role Phone Vanda Guerrero MD Primary Care Provider [phone] Reason for Visit (Routine) - Closed Specialty Diagnoses / Procedures Referred By Contact Refer red To Contact Radiology / Diagnoses prev ridges Rh Ultrasound Breast Radiology. Procedures US BREAST LT CMPL [facility] [address], [address] [place] [address] Phone: Referral ID Status Reason Start Date Expiration Date Visits Requ ested Visits Authorized [id number] Closed 09/30/2015 09/29/2016 1 1 Encounter Details Date Type Department Care Team Description 09/30/2015 Hospital Encounter [facility] Vanda Guerrero reast pain, left [place] Breast MD Catar[place] [address] [place] [address] [place], [place] [phone] [address] (Work) [phone] Social History Tobacco Use Types Packs/Day Years [...] often do you attend jehovah's witness or amish Patient refused 08/08/2019 services? Do you belong to any clubs or organizations such as No 08/08/2019 jehovah's witness groups, [employer], fraSinosun Technology or athletic groups, or school groups? [...] 2 Fibromyalgia times daily fluticasone (FLONASE) 50 [place] 1-2 sprays 3 Package 3 10/0605/03/2016 MCG/ACT [...] documented as of this encounter Care Teams Pool Attendant Relationship Specialty Start Date End Date Vanda Guerrero MD PCP - General Internal Medicine 04/08/15 01/08/19 [address] [facility] [place] [address] documented as of this encounter
--- OUTSIDE RECORDS SUMMARY | 2022-02-06 10:19 | XMS_ITS | Encounter Summary ---
:1965 Author Organization [place] Address [address] [place] [address] Care Team Providers Name Role Phone Vanda Guerrero MD Primary Care Provider [phone] Reason for Visit Reason Onset Date Comments Refill Request 05/11/2015 SIMVASTATIN 20MG Encounter Details Date Type Department Care Team Description 05/11/2015 Refill [facility] Vanda Lal, Refill Request [address] Kali SALDANA (SIMVASTATIN 20MG) [place] [phone] 08[address] [facility] [phone] [facility] [place] [address] (Wo rk) Social [...] Shante Joya RN - 05/11/2015 12:01 PM MEDICAL AFFAIRS MANAGER Prescription approved per [facility] Refill Protocol. RERE Franco Triage Nurse CAL AFFAIRS MANAGER Telephone Encounter - Marisa Matthew - 05/11/2015 7:56 AM CST SIMVASTATIN 20MG Last Written Prescription Date: 10/06/2014 Last Fill Quantity: 90, # refills: 1 Last Office Visit with [facility] primary care provider: 04/08/2015 CHOL 153 08/10/2014 HDL 61 08/10/2014 LDL 76 08/10/2014 TRIG 79 08/10/2014 CHOLHDLRATIO 2.5 08/10/2014 CAL AFFAIRS MANAGER documented in this encounter Plan of Treatment Not on filedocumented as of this encounter Visit Diagnoses Diagnosis Hyperlipidemia LDL goal <100 - Primary Other and unspecified hyperlipidemia documented in this encounter Care Teams Rn Ostomy Relationship Specialty Start Date End Date Vanda Guerrero MD PCP - General Internal Medicine 04/08/15 01/08/19 [address] [facility] [place] [address] documented as of this encounter
--- OUTSIDE RECORDS SUMMARY | 2022-02-06 10:19 | XMS_ITS | Encounter Summary ---
:1965 Author Organization [place] Address [facility] [place] [address] Care Team Providers Name Role Phone Selma Good APRN FREIGHT SOLICITOR Primary Care Provider [phone] Reason for Visit (Routine) - Closed Specialty Diagnoses / Procedures Referred By Contact Refer red To Contact Radiology / Radiology. Diagnoses R#NA, BC, written order Sh Ct Scan Procedures CT CERVICAL SPINE WO [address] [place] [phone] Phone: Referral ID Status Reason Start Date Expiration Date Visits Requ ested Visits Authorized [id number] Closed 01/01/2015 01/01/2016 1 1 Encounter Details Date Type Department Care Team Description 01/08/2015 Hospital Encounter [facility], [facility] atus post cervical [facility] [place]AN [place] FREIGHT SOLICITOR spinal fusion [address] [place] [phone] ORTHOPEDICS [phone] [place], [place] [address] Social History Tobacco Use Types Packs/Day Years [...] How often do you attend presybeterian or jewish Patient refused 08/08/2019 services? Do you belong to any clubs or organizations such as No 08/08/2019 presybeterian groups, [employer], [employer] or athletic groups, or school groups? How [...] 2 times capsuleIndications: daily Fibromyalgia fluticasone (FLONASE) [place] 1-2 sprays into 3 Package 3 05/03/2016 [...] Spine, SUBRAD CT NEURO, SUBRAD CT NEURO, [facility] CT SPINE Computed Tomography Specimen (Source) Anatomical [...] C3-C4. MARY SWAN MD Rosalia Main APRN FREIGHT SOLICITOR IMG CT ORDERABLES documented in this encounter Visit Diagnoses Diagnosis Status post cervical spinal fusion Arthrodesis status documented in this encounter Care Teams Advertising Editor Relationship Specialty Start Date End Date Selma Good APRN CNP PCP - General 04/09/08 04/07/[address] [facility] [address] [place], [place] [address] documented as of this encounter
--- OUTSIDE RECORDS SUMMARY | 2022-02-06 10:19 | XMS_ITS | Encounter Summary ---
:1965 Author Organization [place] Address [address] [place] [address] Care Team Providers Name Role Phone Vanda Guerrero MD Primary Care Provider [phone] Reason for Visit Reason Comments Cough Otalgia Encounter Details Date Type Department Care Team Description 07/08/2015 Office Visit [facility] Serum, [place] Acute bro nchitis, unspecified organism (Primary Dx); Pino Panda MD Middle ear effusion, bilateral [address] [place] [address] [place] [phone] [address] [place], [place] [address] Social History Tobacco Use [...] Comments Blood Pressure 100/68 07/08/2015 11:18 AM DIRECTOR OF CONSULTING SERVICES Pulse 96 07/08/2015 11:18 AM DIRECTOR OF CONSULTING SERVICES Temperature 37.2 ??C (98.9 ??F) 07/08/2015 11:18 AM DIRECTOR OF CONSULTING SERVICES Respiratory Rate - - Oxygen Saturation 98% 07/08/2015 11:18 AM DIRECTOR OF CONSULTING SERVICES Inhaled Oxygen Concentration - - Weight 80.1 kg (176 lb 8 oz) 07/08/2015 11:18 AM DIRECTOR OF CONSULTING SERVICES Height 158.8 cm (5' 2.5) 07/08/2015 11:18 AM DIRECTOR OF CONSULTING SERVICES Body Mass Index 31.77 07/08/2015 11:18 AM DIRECTOR OF CONSULTING SERVICES documented in this encounter Patient Instructions Patient InstructionsSerum, Keyona Panda MD - 07/08/2015 12:01 PM DIRECTOR OF CONSULTING SERVICES 1. Augmentin 1 pill twice a day for 10 days 2. Continue allergy medications 3. Continue ibuprofen as needed for pain/fevers 4. Follow-up if not improving or getting worse CTOR OF CONSULTING SERVICES documented in this encounter Progress Notes Keyona [...] list, Allergies, and Medical/Social/Surgical histories reviewed in [facility] andupdated as appropriate. OBJECTIVE: BP 100/68 [...] as needed See Patient Instructions Keyona Sexton [facility] CTOR OF CONSULTING SERVICES documented in this encounter Nursing Notes Adele [...] completed using cuff size: yennifer OSMAN SMA CTOR OF CONSULTING SERVICES documented in this encounter Plan of Treatment Not on filedocumented as of this encounter Visit Diagnoses Diagnosis Acute bronchitis, unspecified organism - Primary Middle ear effusion, bilateral documented in this encounter Additional Health Concerns Assessment Noted Time PHQ-9 Depression Total Score: 13 07/09/2015 7:49 AM CS T documented as of this encounter Care Teams Speech Communication Professor Relationship Specialty Start Date End Date Vanda Guerrero MD PCP - General Internal Medicine 04/08/15 01/08/19 [address] [facility] [place] [address] documented as of this encounter
--- OUTSIDE RECORDS SUMMARY | 2022-02-06 10:19 | XMS_ITS | Encounter Summary ---
:1965 Author Organization [place] Address [address] [place] [address] Care Team Providers Name Role Phone Vanda Guerrero MD Primary Care Provider [phone] Reason for Visit Reason Comments Menopausal Sx Encounter Details Date Type Department Care Team Description 09/29/2015 Office Visit [facility] Vanda Guerrero Left-ant ed low back pain with left-sided sciatica (Primary Dx); Pino Toribio MD Breast pain, left; [address] [place] [address] Type 2 diabetes mellitus wit hout complication (H); [place] [address] [facility] Major depressive disorder, recurrent epi sode, moderate (H); [phone] [place] [address] Hypertension goal BP (blood pressure) < 130/80; [phone] Hyperlipidemia LDL goal <100; (Work) History of [...] three times daily if you can Call [phone] to set up a special mammogram and [...] Two temporarily, and 2 permanently. Provides primary childcare center director for grandchildren. [age] year old is 19 [...] three times daily if you can Call [phone] to set up a special mammogram and ultrasound to investigate your breast pain Please come back in about 6 weeks to review everything - in the meantime, you can try Replens or Rephresh (available OTC) I'm happy to send you to physical therapy or back to the surgeons anytime - let me know Vanda Guerrero MD [facility] documented in this encounter Nursing Notes Jacquelyn [...] CDT) athologist Signature Cholesterol 152 <200 mg/dL [facility] Triglycerides 109 <150 mg/dL [facility] Comment: Fasting specimen HDL Cholesterol 51 >49 mg/dL [place] [facility] LDL Cholesterol Calculated 79 <100 mg/dL [facility] Comment: Desirable: <100 mg/dl Non HDL Cholesterol 101 <130 mg/dL [facility] Specimen Anatomical Collection Method Collection Time Receive d Time (Source) Location / / Volume Laterality Blood specimen 12/03/2015 8:50 AM 016 8:55 (specimen) CDT AM CDT Vanda Guerrero MD LAB - BLOOD ORDERABLES Performing Organization Address City/State/ZIP Code Phon e Number [facility] [address] [place] [address] Microalbumin quantitative random urine (09/30/2015 9:22 AM CDT) athologist Signature Creatinine 174 mg/dL [place] Urine [facility] Albumin Urine 10 mg/L [place] mg/L [facility] Albumin Urine 5.67 0 - 25 [place] mg/g Cr mg/g Cr [facility] Specimen Anatomical Collection Method Collection Time Receive d Time (Source) Location / / Volume Laterality Urine specimen 09/30/2015 9:22 AM 016 9:23 (specimen) CDT AM CDT Vanda Guerrero MD LAB - URINE ORDERABLES Performing Organization Address City/State/ZIP Code Phon e Number [facility] [address] [place] [address] [facility] [address] [place] [place] [address], U [phone] Vitamin D Deficiency (09/30/2015 9:22 AM CDT) athologist Signature Vitamin D 36 20 - 75 [facility] Deficiency ug/L [facility] Comment: Season, race, dietary intake, and treatm ent affect the concentration of 52-scibbkz-Oflgvkr D. Values may decrea se during winter [...] Address City/State/ZIP Code Phon e Number [address] Vitamin B12 (09/30/2015 9:22 AM CDT) athologist Signature Vitamin B12 482 193 - 986 [facility] pg/mL [facility] Comment: Interp: [phone] = Normal Specimen Anatomical Collection Method Collection Time Receive d Time (Source) Location / / Volume Laterality Blood specimen 09/30/2015 9:22 AM 016 9:23 (specimen) CDT AM CDT Vanda Guerrero MD LAB - BLOOD ORDERABLES Performing Organization Address City/State/ZIP Code Phon e Number [facility] [address] (ABNORMAL) TSH with free T4 reflex (09/30/2015 9:22 AM CDT) P athologist Signature TSH 0.07 (L) 0.40 - [facility] 4.00 mU/L [facility] Specimen Anatomical Collection Method Collection Time Receive d Time (Source) Location / / Volume Laterality Blood specimen 09/30/2015 9:22 AM 016 9:23 (specimen) CDT AM CDT Vanda Guerrero MD LAB - BLOOD ORDERABLES Performing Organization Address City/State/ZIP Code Phon e Number [facility] [address] [place] [address] (ABNORMAL) Comprehensive metabolic panel (09/30/2015 9:22 AM CDT) [facility] gist Method Time Signature Sodium 145 (H) 133 - 144 [place] mmol/L [facility] Potassium 4.0 3.4 - 5.3 [place] mmol/L [facility] Chloride 110 (H) 94 - 109 [place] mmol/L [facility] Carbon Dioxide 25 20 - 32 [place] mmol/L [facility] Anion Gap 10 3 - 14 [place] mmol/L [facility] Glucose 104 (H) 70 - 99 [place] mg/dL [facility] Urea Nitrogen 10 7 - 30 [place] mg/dL [facility] Creatinine 0.67 0.52 - [place] 1.04 [facility] mg/dL [facility] GFR Estimate >90 >60 [place] Non GFR Calc mL/min/1. CLINICS 7m2 [facility] GFR Estimate If >90 >60 [place] Black GFR Calc mL/min/1. CLIN ICS 7m2 [facility] Calcium 9.7 8.5 - [facility] 10.1 [facility] mg/dL [facility] Bilirubin Total 0.4 0.2 - 1.3 [place] mg/dL [facility] Albumin 3.6 3.4 - 5.0 [place] g/dL [facility] Protein Total 8.2 6.8 - 8.8 [place] g/dL [facility] Alkaline 148 40 - 150 [place] Phosphatase U/L [facility] ALT 47 0 - 50 [place] U/L [facility] AST 19 0 - 45 [place] U/L [facility] Specimen Anatomical Collection Method Collection Time Receive d Time (Source) Location / / Volume Laterality Blood specimen 09/30/2015 9:22 AM 016 9:23 (specimen) CDT AM CDT Vanda Guerrero MD LAB - BLOOD ORDERABLES Performing Organization Address City/State/ZIP Code Phon e Number [facility] [address] [place] [address] (ABNORMAL) Hemoglobin A1c (09/30/2015 9:22 AM CDT) P athologist Signature Hemoglobin A1C 6.2 (H) 4.3 - 6.0 [facility] Specimen Anatomical Collection Method Collection Time Receive d Time (Source) Location / / Volume Laterality Blood specimen 09/30/2015 9:22 AM 016 9:23 (specimen) CDT AM CDT Vanda Guerrero MD LAB - BLOOD ORDERABLES Performing Organization Address City/State/ZIP Code Phon e Number [facility] [address] [facility] [place] [address] documented in this encounter Visit Diagnoses Diagnosis [...] as of this encounter Care Teams Custom Frame Assembler Relationship Specialty Start Date End Date Vanda Guerrero MD PCP - General Internal Medicine 04/08/15 01/08/19 [address] [facility] [place] [address] documented as of this encounter
--- OUTSIDE RECORDS SUMMARY | 2022-02-06 10:19 | XMS_ITS | Encounter Summary ---
:1965 Author Organization [place] Address [address] [place] [address] Care Team Providers Name Role Phone Selma Good APRN PAINTER HELPER Primary Care Provider [phone] Reason for Visit Reason Comments Pain FABIAN for Pain Management Encounter Details Date Type Department Care Team Description 01/26/2015 Radiology [facility] SolaresTeagan german Cervical s pondylosis without myelopathy (Primary Dx); Injection Office Pain Management DO Noreen Cervical radiculopathy Visit [address] [place] [address] [place], [place] [phone] [address] (Work) [phone] Social History Tobacco Use Types Packs/Day Years [...] Lew CMA - 01/26/2015 9:11 AM CDT [facility] Procedure Discharge Instruction Nurse line #:[phone] Appointment line #; [phone] Teagan Solares You had [...] medication, which will hopefully give you the terminologist relief, may take up to 14 days [...] center nursing line during work hours at [phone] or watermelon inspector physician after hours at [phone] (choose option #1): o Fever over 100F [...] Solares DO - 01/26/2015 8:44 AM CDT [facility] - Procedure Note Date of Visit: 01/26/15 Procedure performed: T1-T2 interlaminar epidural steroid injection with fluoroscopic guidance Diagnosis: Cervical spondylosis; Cervical radiculitis/radiculopathy Yoga Coordinator: Teagan Solares DO Anesthesia: none Indications: Megan [...] the patient was advised to contact the [facility] for any of the [...] weeks for post-procedure evaluation. Teagan Solares DO [facility] documented in this encounter Nursing Notes Cathie [...] active infection? 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 NO [...] using cuff size: large Cathie Lew CMA ([facility]) Pain Management Center documented in this encounter Plan of Treatment Not on filedocumented as of this encounter Visit Diagnoses Diagnosis Cervical spondylosis without myelopathy - Primary Cervical radiculopathy Brachial neuritis or radiculitis nos documented in this encounter Care Teams Rotary Drier Relationship Specialty Start Date End Date Selma Good APRN PAINTER HELPER PCP - General 04/09/08 04/07/[address] [place], [place] [address] documented as of this encounter
--- OUTSIDE RECORDS SUMMARY | 2022-02-06 10:19 | XMS_ITS | Encounter Summary ---
:1965 Author Organization [place] Address [address] [place] [address] Care Team Providers Name Role Phone Vanda Guerrero MD Primary Care Provider [phone] Reason for Visit (Routine) - Closed Specialty Diagnoses / Procedures Referred By Contact Refer red To Contact Radiology / Radiology. Diagnoses [facility] Procedures NE DIAGNOSTIC DIGITAL BILAT [address], [address] [place] [address] Phone: Fax: Referral ID Status Reason Start Date Expiration Date Visits Requ ested Visits Authorized [id number] Closed 09/29/2015 09/28/2016 1 1 Encounter Details Date Type Department Care Team Description 09/30/2015 Hospital Encounter [facility] Vanda Guerrero reast pain, left [facility] MD Catarino Rolla [address] [place] [address] [address], [address] [place] [address] [place], [place] [phone] [address] (Work) [phone] Social History Tobacco Use Types Packs/Day Years [...] often do you attend oriental orthodox or confucianism Patient refused 08/08/2019 services? Do you belong to any clubs or organizations such as No 08/08/2019 oriental orthodox groups, Floorball Gears, fraHumacyte or athletic groups, or school groups? How [...] 2 Fibromyalgia times daily fluticasone (FLONASE) 50 [place] 1-2 sprays 3 Package 3 10/0605/03/2016 MCG/ACT [...] documented as of this encounter Care Teams Lace Stripper Relationship Specialty Start Date End Date Vanda Guerrero MD PCP - General Internal Medicine 04/08/15 01/08/19 [address] [facility] [place] [address] documented as of this encounter
--- OUTSIDE RECORDS SUMMARY | 2022-02-06 10:19 | XMS_ITS | Encounter Summary ---
:1965 Author Organization [facility] Address [address] [place] [address] Care Team Providers Name Role Phone Selma Good APRN ACCOUNT SERVICES COORDINATOR Primary Care Provider [phone] Reason for Visit Reason Onset Date Comments Procedure 01/13/2015 FABIAN Encounter Details Date Type Department Care Team Description 01/13/2015 Telephone [facility] Pain Pain Management Pr ocedure (FABIAN) Management [facility] [address] [place] [address] [address] [place] [address] Social History Tobacco Use Types [...] How often do you attend religion or denominational Patient refused 08/08/2019 services? Do [...] be done at which interventional clinic site? [facility] Procedure ordered by Dr. AGRAWAL Procedure [...] or notify pt of denial. Is an biztalk administrator needed? No Patient has a drive home? [...] ?? If so, was it done at [facility]? Yes ?? If not, where was it done? Was the MRI done w/in the last 3 years? Yes If MRI was not done at [facility], [facility] do NOT schedule. Route [...] the patient have any questions? Yvonne Cedillo [facility] documented in this encounter Plan of Treatment Not on filedocumented as of this encounter Visit Diagnoses Not on filedocumented in this encounter Care Teams Pattern Grader Cutter Relationship Specialty Start Date End Date Danilo-Selma Mccoy APRN ACCOUNT SERVICES COORDINATOR PCP - General 04/09/08 04/07/15 [address] [facility] [place] [address] documented as of this encounter
--- OUTSIDE RECORDS SUMMARY | 2022-02-06 10:19 | XMS_ITS | Encounter Summary ---
:1965 Author Organization [place] Address [address] [place] [address] Care Team Providers Name Role Phone Selma Good APRN MANGANESE WHEELER Primary Care Provider [phone] Encounter Details Date Type Department Care Team Description 01/12/2015 Radiant Appointment [facility] Teagan Solares DDD (degenerative Clinic [facility] disc disease), Pain Management [facility] lumbar [address] [place] [address] [place] [address] [place], [place] [phone] [address] (Work) [phone] Social History Tobacco Use Types Packs/Day Years [...] How often do you attend voodoo or nondenominational Patient refused 08/08/2019 services? Do [...] be read by a radiologist or a [facility] non-radiologis t provider. Procedure Note Lashae Alexis - 01/12/2015Formatt ing of this note might be different from the original. This exam was marked as non-reportable b ecause it will not be read by a radiologist or a [facility] non-radiologist provider. Teagan Solares DO IMG DIAGNOSTIC [...] dose documented in this encounter Care Teams Silk Screen Frame Assembler Relationship Specialty Start Date End Date Selma Good, BANK EXAMINER MANGANESE WHEELER PCP - General 04/09/08 04/07/[address] [place], [place] [address] documented as of this encounter
--- OUTSIDE RECORDS SUMMARY | 2022-02-06 10:19 | XMS_ITS | Encounter Summary ---
:1965 Author Organization [place] Address [address] [place] [address] Care Team Providers Name Role Phone Vanda Guerrero MD Primary Care Provider [phone] Encounter Details Date Type Department Care Team Description 09/30/2015 Orders Only [facility] Eag an Type 2 diabetes mellitus wit hout complication (H); [address] Chronic fatigue [place] [address] Social [...] Signature T4 Free 1.01 0.76 - 1.46 [facility] ng/dL [facility] Specimen Anatomical Collection Method Collection Time Receive d Time (Source) Location / / Volume Laterality 09/30/2015 9:22 AM 6 9:23 CDT AM CDT Vanda Guerrero MD LAB - BLOOD ORDERABLES Performing Organization Address City/State/ZIP Code Phon e Number [facility] [address] [place] [address] Microalbumin quantitative random urine (09/30/2015 9:22 AM CDT) athologist Signature Creatinine 174 mg/dL [place] Urine [facility] Albumin Urine 10 mg/L [place] mg/L [facility] Albumin Urine 5.67 0 - 25 [place] mg/g Cr mg/g Cr [facility] Specimen Anatomical Collection Method Collection Time Receive d Time (Source) Location / / Volume Laterality Urine specimen 09/30/2015 9:22 AM 016 9:23 (specimen) CDT AM CDT Vanda Guerrero MD LAB - URINE ORDERABLES Performing Organization Address City/State/ZIP Code Phon e Number [facility] [address] [place] [address] [phone] [facility] [address] [place] [address], U [phone] Vitamin D Deficiency (09/30/2015 9:22 AM CDT) athologist Signature Vitamin D 36 20 - 75 [facility] Deficiency ug/L [facility] Comment: Season, race, dietary intake, and treatm ent affect the concentration of 97-fzrsetf-Jepvupx D. Values may decrea se during winter [...] Performing Organization Address City/[facility]/ZIP [facility] Phon e Number [address] Vitamin B12 (09/30/2015 9:22 AM CDT) athologist Signature Vitamin B12 482 193 - 986 [facility] pg/mL [facility] Comment: Interp: [phone] = Normal Specimen Anatomical Collection Method Collection Time Receive d Time (Source) Location / / Volume Laterality Blood specimen 09/30/2015 9:22 AM 016 9:23 (specimen) CDT AM CDT Vanda Guerrero MD LAB - BLOOD ORDERABLES Performing Organization Address City/[facility]/ZIP Code Phon e Number [address] (ABNORMAL) TSH with free T4 reflex (09/30/2015 9:22 AM CDT) athologist Signature TSH 0.07 (L) 0.40 - [facility] 4.00 mU/L [facility] Specimen Anatomical Collection Method Collection Time Receive d Time (Source) Location / / Volume Laterality Blood specimen 09/30/2015 9:22 AM 016 9:23 (specimen) CDT AM CDT Vanda Guerrero MD LAB - BLOOD ORDERABLES Performing Organization Address City/[facility]/ZIP Code Phon e Number [facility] [address] [place] [address] (ABNORMAL) Comprehensive metabolic panel (09/30/2015 9:22 AM CDT) Patholo gist Method Time Signature Sodium 145 (H) 133 - 144 [place] mmol/L [facility] Potassium 4.0 3.4 - 5.3 [place] mmol/L [facility] Chloride 110 (H) 94 - 109 [place] mmol/L [facility] Carbon Dioxide 25 20 - 32 [place] mmol/L [facility] Anion Gap 10 3 - 14 [place] mmol/L [facility] Glucose 104 (H) 70 - 99 [place] mg/dL [facility] Urea Nitrogen 10 7 - 30 [place] mg/dL [facility] Creatinine 0.67 0.52 - [place] 1.04 [facility] mg/dL [facility] GFR Estimate >90 >60 [place] Non GFR Calc mL/min/1. CLINICS 7m2 [facility] GFR Estimate If >90 >60 [place] Black GFR Calc mL/min/1. CLIN ICS 7m2 [facility] Calcium 9.7 8.5 - [facility] 10.1 CLINICS mg/dL [facility] Bilirubin Total 0.4 0.2 - 1.3 [place] mg/dL [facility] Albumin 3.6 3.4 - 5.0 [place] g/dL [facility] Protein Total 8.2 6.8 - 8.8 [place] g/dL [facility] Alkaline 148 40 - 150 [place] Phosphatase U/L [facility] ALT 47 0 - 50 [place] U/L [facility] AST 19 0 - 45 [place] U/L [facility] Specimen Anatomical Collection Method Collection Time Receive d Time (Source) Location / / Volume Laterality Blood specimen 09/30/2015 9:22 AM 016 9:23 (specimen) CDT AM CDT Vanda Guerrero MD LAB - BLOOD ORDERABLES Performing Organization Address City/State/ZIP Code Phon e Number [facility] [address] [place] [address] (ABNORMAL) Hemoglobin A1c (09/30/2015 9:22 AM CDT) P athologist Signature Hemoglobin A1C 6.2 (H) 4.3 - 6.0 [facility] Specimen Anatomical Collection Method Collection Time Receive d Time (Source) Location / / Volume Laterality Blood specimen 09/30/2015 9:22 AM 016 9:23 (specimen) CDT AM CDT Vanda Guerrero MD LAB - BLOOD ORDERABLES Performing Organization Address City/State/ZIP Code Phon e Number [facility] [address] [facility] [place] [address] documented in this encounter Visit Diagnoses Diagnosis Type 2 diabetes mellitus without complic ation (H) Chronic fatigue Other malaise and fatigue documented in this encounter Additional Health Concerns Assessment Noted Time PHQ-9 Depression Total Score: 13 07/09/2015 7:49 AM CS T documented as of this encounter Care Teams Outsole Paraffiner Relationship Specialty Start Date End Date Vanda Guerrero MD PCP - General Internal Medicine 04/08/15 01/08/19 [address] [facility] [place] [address] documented as of this encounter
--- OUTSIDE RECORDS SUMMARY | 2022-02-06 10:19 | XMS_ITS | Encounter Summary ---
:1965 Author Organization [facility] Address [address] [place] [address] Care Team Providers Name Role Phone Selma Good APRN ENGINEERING TEACHER Primary Care Provider [phone] Encounter Details Date Type Department Care Team Description 01/11/2015 Orders Only [facility] Eag an Routine general medical [address] [facility] [place] [address] care facility [phone] Social History Tobacco Use Types Packs/Day Years [...] How often do you attend restorationist or yarsanism Patient refused 08/08/2019 services? Do [...] logist Time Signature Occult Blood Negative NEG [facility] Specimen Anatomical Collection Method Collection Time Receive d Time (Source) Location / / Volume Laterality Stool specimen 01/11/2015 9:00 AM 015 (specimen) CDT 10:42 AM CDT Selma Good APRN ENGINEERING TEACHER LAB - STOOLS ORDERABLES Performing Organization Address City/State/ZIP Code Phon e Number [facility] [address] [place] [address] [facility] documented in this encounter Visit Diagnoses Diagnosis Routine general medical examination at a health care facility documented in this encounter Care Teams Respiratory Director Relationship Specialty Start Date End Date Danilo-Selma Mccoy, BODY ART TECHNICIAN ENGINEERING TEACHER PCP - General 04/09/08 04/07/15 [address] [address] [place], [place] [address] documented as of this encounter
--- OUTSIDE RECORDS SUMMARY | 2022-02-06 10:19 | XMS_ITS | Encounter Summary ---
:1965 Author Organization [place] Address [address] [place] [address] Care Team Providers Name Role Phone Vanda Guerrero MD Primary Care Provider [phone] Reason for Visit (Routine) - Closed Specialty Diagnoses / Procedures Referred By Contact Refer red To Contact Radiology / Radiology. Diagnoses prev [facility] Procedures MA SCREENING DIGITAL BILATERAL [address], [address] [place] [address] Phone: Fax: Referral ID Status Reason Start Date Expiration Date Visits Requ ested Visits Authorized [id number] Closed 04/15/2015 04/14/2016 1 1 Encounter Details Date Type Department Care Team Description 04/16/2015 Hospital Encounter [facility] Vanda Guerrero for screening Appletontoan Toribio MD mammogram Center [address] [place] [address] [address], [address] [place] [address] [place], [place] [phone] [address] (Work) [phone] Social History Tobacco Use Types Packs/Day Years [...] How often do you attend judaism or presybeterian Patient refused 08/08/2019 services? Do you belong to any clubs or organizations such as No 08/08/2019 judaism groups, [place] OTRs, fraBig Stage or athletic groups, or school groups? How [...] 2 Fibromyalgia times daily fluticasone (FLONASE) 50 [place] 1-2 sprays 3 Package 3 10/0605/03/2016 MCG/ACT [...] screening R esults for this DIGITAL BILATERAL [facility] MAN mammogram procedure are in the results section. documented in this encounter Results MA Screening Digital Bilateral (04/16/2015 11:13 AM HIDE MILL MAN) Anatomical Region Laterality Modality Breast Bilateral Mammography Specimen (Source) Anatomical Location Collection Method / Collectio n Time Received Time / Laterality Volume Impressions 04/16/2015 12:41 PM [facility] MAN IMPRESSION: BI-RADS CATEGORY: 1 - ??NEGATIVE. RECOMMENDED FOLLOW-UP: Annual Mammograph y Exam results letter mailed to patient. BRIGIDO RDZ MD Narrative 04/16/2015 12:41 PM [facility] MAN SCREENING MAMMOGRAM, BILATERAL, DIGITAL w/CAD - 04/16/2015 [...] mammogram documented in this encounter Care Teams Door Clamper Relationship Specialty Start Date End Date Vanda Guerrero MD PCP - General Internal Medicine 04/08/15 01/08/19 [address] [facility] [place] [address] documented as of this encounter
--- OUTSIDE RECORDS SUMMARY | 2022-02-06 10:19 | XMS_ITS | Encounter Summary ---
:1965 Author Organization [place] Address [address] [place] [address] Care Team Providers Name Role Phone Selma Good APRN CHAIR CAR ATTENDANT Primary Care Provider Encounter Details Date Type Department Care Team Description 01/26/2015 Radiant Appointment [facility] Teagan Solares DDD (degenerative Clinic [facility] disc disease), Pain Management [facility] cervical [address] [place] [address] [place] [address] [place], [place] [phone] [address] (Work) [phone] Social History Tobacco Use Types Packs/Day Years [...] How often do you attend cheondoism or jehovah's witness Patient refused 08/08/2019 services? [...] be read by a radiologist or a [place] non-radiologis t provider. Procedure Note Lashae Alexis - 01/26/2015Formatt ing of this note might be different from the original. This exam was marked as non-reportable b ecause it will not be read by a radiologist or a [place] non-radiologist provider. Teagan Solares DO [facility]MM[facility] DIAGNOSTIC [...] dose documented in this encounter Care Teams Internet Application Developer Relationship Specialty Start Date End Date Danilo-Selma Mccoy, ASSOCIATE DEAN OF WOMEN CHAIR CAR ATTENDANT PCP - General 04/09/08 04/07/[address] [place], [place] [address] documented as of this encounter
--- OUTSIDE RECORDS SUMMARY | 2022-02-06 10:20 | XMS_ITS | Encounter Summary ---
:1965 Author Organization [place] Address [address] [place] [address] Care Team Providers Name Role Phone Selma Good APRN, CNP Primary Care Provider [phone] Reason for Visit Reason Onset Date Comments Refill Request 08/25/2014 TOPIRAMATE 50MG Encounter Details Date Type Department Care Team Description 08/25/2014 Refill [facility] Selma Hodges Refill Request 1440 [address] SEAN Angeles CNP (TOPIRAMATE 50MG) [place] [phone] [place] [address] [facility] [place] [phone] (Wo rk) Social History Tobacco Use Types [...] How often do you attend yarsanism or jewish Patient refused 08/08/2019 services? Do [...] I sent her a reminder letter, via [employer]. [employer] and also mailed her a letter Meeta [...] migrainosus documented in this encounter Care Teams Periodicals Clerk Relationship Specialty Start Date End Date Danilo-Selma Mccoy, SOFTWARE TEST DEVELOPER LEARNING SERVICES COORDINATOR PCP - General 04/09/08 04/07/15 [address] [facility] [place] [address] documented as of this encounter
--- OUTSIDE RECORDS SUMMARY | 2022-02-06 10:20 | XMS_ITS | Encounter Summary ---
:1965 Author Organization [place] Address [address] [place] [address] Care Team Providers Name Role Phone Selma Good APRN CELL TOWER CLIMBER Primary Care Provider [phone] Encounter Details Date Type Department Care Team Description 06/08/2014 Orders Only [facility] Eag an Hyperlipidemia LDL goal <100 [address] [facility] [place] [address] Social History Tobacco Use Types Packs/Day [...] How often do you attend rastafarian or jain Patient refused 08/08/2019 services? Do [...] goal Results for this DIRECT LDL PANEL BEACH LIFEGUARD <100 procedure a re in the results section. documented in this encounter Results Lipid panel reflex to direct LDL (06/08/2014 8:40 AM BEACH LIFEGUARD) P athologist Signature Cholesterol 197 <200 mg/dL [facility] Comment: LDL Cholesterol is the primary guide to therapy. The NCEP recommends further evaluation of: patients with cholesterol greater than 200 mg/dL if additional risk facto rs are present, cholesterol greater than 240 mg/dL, triglycerides greater than 1 50 mg/dL, or HDL less than 40 mg/dL. Triglycerides 77 0 - 150 mg/dL [facility] [place] Comment: Fasting specimen HDL Cholesterol 57 >50 mg/dL [facility] LDL Cholesterol Calculated 125 0 - 129 mg/dL [facility] Comment: LDL Cholesterol is the primary guide to therapy: LDL-cholesterol goal in high risk patients is <100 mg/dL and in very high risk patients is <70 mg/dL. VLDL-Cholesterol 15 0 - 30 mg/dL [facility] [place] Cholesterol/HDL Ratio 3.5 0.0 - 5.0 [facility] Specimen Anatomical Collection Method Collection Time Receive d Time (Source) Location / / Volume Laterality Blood specimen 06/08/2014 8:40 AM 014 8:45 (specimen) [facility] LIFE[facility] AM [facility] Selma Good APRN, CNP LAB - BLOOD ORDERABLES Performing Organization Address City/State/ZIP Code Phon e Number [facility] [address] [place] [address] [facility] [address], [place] [address] documented in this encounter Visit Diagnoses Diagnosis Hyperlipidemia LDL goal <100 Other and unspecified hyperlipidemia documented in this encounter Care Teams Manufacturing Chief Engineer Relationship Specialty Start Date End Date Selma Good APRN CELL TOWER CLIMBER PCP - General 04/09/08 04/07/15 [address] [facility] [place] [address] documented as of this encounter
--- OUTSIDE RECORDS SUMMARY | 2022-02-06 10:20 | XMS_ITS | Encounter Summary ---
:1965 Author Organization [place] Address [address] [place] [address] Care Team Providers Name Role Phone Selma Good APRN, CNP Primary Care Provider [phone] Reason for Visit Reason Onset Date Comments Refill Request 09/22/2014 TOPIRAMATE 50MG Encounter Details Date Type Department Care Team Description 09/22/2014 Refill [facility] Selma Hodges Refill Request 14[address] SEAN Angeles CNP (TOPIRAMATE 50MG) [place] [phone] [place] [address] [facility] [place] [phone] (Wo rk) Social History Tobacco Use Types [...] How often do you attend temple or restoration Patient refused 08/08/2019 services? Do [...] migrainosus documented in this encounter Care Teams Automatic Coin Machine Mechanic Relationship Specialty Start Date End Date Danilo-Selma Mccoy, DOCK LOADER POULTRY VETERINARIAN PCP - General 04/09/08 04/07/[address] [facility] [address] [place], [place] [address] documented as of this encounter
--- OUTSIDE RECORDS SUMMARY | 2022-02-06 10:20 | XMS_ITS | Encounter Summary ---
:1965 Author Organization [place] Address [address] [place] [address] Care Team Providers Name Role Phone Selma Angelo APRN [facility] Primary Care Provider [phone] Reason for Visit Reason Comments Physical Encounter Details Date Type Department Care Team Description 10/06/2014 Office Visit [facility] Florentino, Lilo gen eral medical examination at a health care facility (Primary Dx); [place] Angeles APRN Major depressive disorder, r ecurrent (H); [facility] Type 2 diabetes, HbA1C goal < 7% (H); [place] [address] [facility] Hyperlipidemia LDL goal <100 ; [phone] [facility] Hypertension goal BP (blood pressure) < 130/80; [place] [address] Anxiety; [phone] GERD (gastroeso phageal reflux disease); (Work) Migraine headache; [phone] Fibromyalgia; (Fax) OME (otitis med ia with [...] How often do you attend mandaeism or sabianism Patient refused 08/08/2019 services? Do [...] and updated in [facility]. ROS: C: NEGATIVE for fever, chills, [...] list, Allergies, and Medical/Social/Surgical histories reviewed in [facility] andupdated as appropriate. OBJECTIVE: BP [...] - fluticasone (FLONASE) 50 MCG/ACT nasal spray; [place] 1-2 sprays into both nostrils daily Dispense: [...] 2010 [employer]'s My[employer] Selma Angelo APRN CNP [facility] documented in this encounter Plan [...] logist Time Signature Occult Blood Negative NEG [facility] [address] Specimen Anatomical Collection Method Collection Time Receive d Time (Source) Location / / Volume Laterality Stool specimen 01/11/2015 9:00 AM 015 (specimen) CDT 10:42 AM CDT Selma Angelo APRN DIMMER BOARD OPERATOR LAB - STOOLS ORDERABLES Performing Organization Address City/State/ZIP Code Phon e Number [facility] [address] [place] [address] [facility] Creatinine (10/06/2014 10:18 AM CDT) P athologist Signature Creatinine 0.76 0.52 - 1.04 [facility] mg/dL [facility] GFR Estimate 79 >60 [facility] mL/min/1.7m [address] Comment: Non GFR Calc GFR Estimate If Black >90 >60 mL/min/1.7m2 F [facility] GFR Calc HOSP ITAL Specimen Anatomical Collection Method Collection Time Receive d Time (Source) Location / / Volume Laterality Blood specimen 10/06/2014 10:18 5 (specimen) AM CDT 10:19 AM CDT Selma Angelo APRN, CNP LAB - BLOOD ORDERABLES Performing Organization Address City/State/ZIP Code Phon e Number [facility] [address] [place] [address] [facility] [address] [place] [address] Hemoglobin A1c (10/06/2014 10:18 AM CDT) P athologist Signature Hemoglobin A1C 5.8 4.3 - 6.0 [facility] Specimen Anatomical Collection Method Collection Time Receive d Time (Source) Location / / Volume Laterality Blood specimen 10/06/2014 10:18 5 (specimen) AM CDT 10:19 AM CDT Selma Karthik Angelo APRN, CNP LAB - BLOOD ORDERABLES Performing Organization Address City/State/ZIP Code Phon e Number [facility] [address] [place] [address] HPV High Risk Types DNA Cervical (10/06/2014 9:50 AM CDT) Component Value Ref Test Analysis Performed At [facility] gist Range Method Time Signature HPV 16 DNA Negative NEG [facility] HPV 18 DNA Negative NEG [facility] Other HR HPV Negative NEG [facility] Final This patient's sample is negative for HP V DNA. ?? [employer] Diagnosis Obstetricians and Gynecolog ists (ACOG) recommends any woman between 30-65 years OF [place] old who receives negative test results on both Pap cytology screening and HPV MEDICAL DNA testing should be rescreened in 5 years. [facility] (Note) [address] METHODOLOGY: ??The Alaina kandy 4800 system uses [...] and its performance characteristics determined by the [facility]. It has not been cleared or [...] CDT 11:50 AM CDT Selma Angelo APRN DIMMER BOARD OPERATOR LAB - BLOOD ORDERABLES Performing Organization Address City/State/ZIP Code Phon e Number [facility] [address] [place] [address] [facility] (ABNORMAL) HPV High Risk Types DNA Cervical (10/06/2014 9:50 AM CDT) Component Value Ref Test Analysis Performed At [facility] Range Method Time Signature HPV 16 DNA Test canceled - [facility] Lab order planner [place] error (A) [facility] HPV 18 DNA Test canceled - NEG [place] Lab order planner [place] error (A) [facility] Other HR HPV Test canceled - NEG [place] Lab order planner [place] error (A) [facility] Final Test canceled - Lab order planner error [facility] Diagnosis (Note) OF [place] METHODOLOGY: ??The Alaina kandy 4800 system uses automated extraction, MEDICAL simultaneous amplification of HPV (L1 region) and beta-globi n, [facility] followed by ??real time detection [...] and its performance characteristics determined by the [facility]. It has not been cleared or approved by the FDA. The laboratory is regulated under CLIA as qualified to perform high-complexity testing. This test is used for clinical purp oses. It should not be regarded as investigational or for research. Specimen Test canceled - Lab order planner error UNIVERSITY Description CORRECTED ON 10/08 AT 1146: PREVIOUSLY REPORTED Cer vical Cells OF [facility] Specimen Anatomical Collection Method Collection Time Receive d Time (Source) Location / / Volume Laterality Cervical Cells 10/06/2014 9:50 AM 015 CDT 10:19 AM CDT Selma Angelo CHANNEL MANAGER DIMMER BOARD OPERATOR LAB - BLOOD ORDERABLES Performing Organization Address City/State/ZIP Code Phon e Number [facility] [address] [place], [place] [id number] [place] [address] PAP IMAGED THIN LAYER SCREEN (10/06/2014 12:00 AM CDT) Component Value Ref Test Analysis Performed At [facility] gist Range Method Time Signature PAP NIL COPATH Copath Report COPATH Patient Name: MEGAN CHOI MR#: [id number] Specimen #: [id number] Collected: 10/06/2014 Received: 10/06/2014 Reported: 10/07/2014 13:33 [...] DOMENICO Winslow (ASCP) Processed and screened at [facility] CLINICAL HISTORY: Previous normal pap Date of Last Pap: 05/05/2011, Papanicolaou Test Limitations: ??Cervical cytology is a scre ening test with limited sensitivity; regular screening is critical for cancer prevention; Pap tests are primarily effective for the diagnosis/prevention of squamous cell carcinoma, not adenoca rcinomas or other cancers. TESTING LAB LOCATION: [facility] [place], [place] ??[address] COLLECTION SITE: Client: ??[facility] Location: [facility] (R) Specimen (Source) Anatomical Collection [...] left documented in this encounter Care Teams Chemical Unit Operator Relationship Specialty Start Date End Date Selma Angelo APRN DIMMER BOARD OPERATOR PCP - General 04/09/08 04/07/15 [address] [facility] [place] [address] documented as of this encounter
--- OUTSIDE RECORDS SUMMARY | 2022-02-06 10:20 | XMS_ITS | Encounter Summary ---
:1965 Author Organization [place] Address [facility] [place] [address] Care Team Providers Name Role Phone Selma Good APRN GLOVE TAGGER Primary Care Provider [phone] Reason for Visit Reason Onset Date Comments Referral 10/21/2014 New Dual Encounter Details Date Type Department Care Team Description 10/21/2014 [facility] Pain Pain Management Re ferral (New Dual ) Management Center Program, [place] [address] [place] [address] [address] [place] [address] Social History Tobacco Use Types [...] How often do you attend yarsani or sabianism Patient refused 08/08/2019 services? Do [...] schedule new dual with patient. Halie Siddiqui Showroom Consultant Pain Management Clinic documented in this encounter Plan of Treatment Not on filedocumented as of this encounter Visit Diagnoses Not on filedocumented in this encounter Care Teams Gutter Mouth Cutter Relationship Specialty Start Date End Date Selma Good APRN GLOVE TAGGER PCP - General 04/09/08 04/07/15 [address] [facility] [place] [address] documented as of this encounter
--- OUTSIDE RECORDS SUMMARY | 2022-02-06 10:20 | XMS_ITS | Encounter Summary ---
:1965 Author Organization [place] Address [address] [place] [address] Care Team Providers Name Role Phone Selma Good OCEANOGRAPHER PHYSICAL FLIGHT DISPATCHER Primary Care Provider [phone] Reason for Visit Reason Onset Date Comments Orders 06/02/2014 Encounter Details Date Type Department Care Team Description 06/02/2014 Telephone [facility] Eag Selma Anthony, Orders 1440 [facility] OCEANOGRAPHER PHYSICAL [place] [address] [place] [address] [facility] [place] [address] (Wo rk) Social [...] How often do you attend adventist or restorationist Patient refused 08/08/2019 services? Do [...] effects to this medication. Selma Good NP [facility] Telephone Encounter - Rossana Adams - 06/02/2014 12:[address] orders for upcoming lab appointment on 06/08/14 Thank you STIFFENER documented in this encounter Plan of Treatment Not on filedocumented as of this encounter Results Lipid panel reflex to direct LDL (06/08/2014 8:40 AM HEEL STIFFENER) athologist Signature Cholesterol 197 <200 mg/dL [facility] Comment: LDL Cholesterol is the primary guide to therapy. The NCEP recommends further evaluation of: patients with cholesterol greater than 200 mg/dL if additional risk facto rs are present, cholesterol greater than 240 mg/dL, triglycerides greater than 1 50 mg/dL, or HDL less than 40 mg/dL. Triglycerides 77 0 - 150 mg/dL [facility] Comment: Fasting specimen HDL Cholesterol 57 >50 mg/dL [facility] LDL Cholesterol Calculated 125 0 - 129 mg/dL [facility] Comment: LDL Cholesterol is the primary guide to therapy: LDL-cholesterol goal in high risk patients is <100 mg/dL and in very high risk patients is <70 mg/dL. VLDL-Cholesterol 15 0 - 30 mg/dL [facility] Cholesterol/HDL Ratio 3.5 0.0 - 5.0 [facility] Specimen Anatomical Collection Method Collection Time Receive d Time (Source) Location / / Volume Laterality Blood specimen 06/08/2014 8:40 AM 014 8:45 (specimen) HEEL STIFFENER AM HEEL STIFFENER Selma Good OCEANOGRAPHER PHYSICAL FLIGHT DISPATCHER LAB - BLOOD ORDERABLES Performing Organization Address City/State/ZIP Code Phon e Number [facility] [address] [place] [address] [facility] [address] [place], [place] [address] documented in this encounter Visit Diagnoses Diagnosis Hyperlipidemia LDL goal <100 - Primary Other and unspecified hyperlipidemia documented in this encounter Care Teams Tractor Driver Relationship Specialty Start Date End Date Selma Good, SEAN FLIGHT DISPATCHER PCP - General 04/09/08 04/07/[address] [facility] [address] documented as of this encounter
--- OUTSIDE RECORDS SUMMARY | 2022-02-06 10:20 | XMS_ITS | Encounter Summary ---
:1965 Author Organization [place] Address [facility] [place] [address] Care Team Providers Name Role Phone Selma Good APRN FELT HAT INSPECTOR AND PACKER Primary Care Provider [phone] Reason for Referral Consultation - Closed Specialty Diagnoses / Procedures Referred By Contact Refer red To Contact Diagnoses Lumbar radiculopathy Cervicalgia History of lumbar fusion History of fusion of cervical spine Chronic left SI joint pain Vanda Guerrero MD [facility] [address] [place] [address] CL-SH- REFERRAL (OP) [address] [place] [address] [place] [address] Phone: [phone] Fax: Referral ID Status Reason Start Date Expiration Date Visits Requ ested Visits Authorized [id number] Closed 12/09/2014 12/09/2015 1 1 Reason for Visit Reason Comments Musculoskeletal Problem left leg pain , neck pain Encounter Details Date Type Department Care Team Description 12/09/2014 Office Visit [facility] Vanda Guerrero Lumbar r adiculopathy (Primary Dx); Pino Toribio MD Cervicalgia; [address] [address] [place] [address] History of lumbar fusion; [place] [address] [facility] History of fusion of cervical spine; [phone] [place] [address] Chronic left SI joint pain [phone] (Wo rk) Social History Tobacco Use Types [...] How often do you attend evangelical or rastafari Patient refused 08/08/2019 services? Do [...] visit with our medical spine specialists in [place] documented in this encounter Progress Notes Vanda [...] [facility] andupdated as appropriate. OBJECTIVE: BP 106/70 [...] ASSESSMENT/PLAN: ICD-9-CM 1. Lumbar radiculopathy 724.4 ORTHO WEATHERIZATION ADMINISTRATOR REFERRAL 2. Cervicalgia 723.1 ORTHO WEATHERIZATION ADMINISTRATOR REFERRAL 3. History of lumbar fusion V45.89 ORTHO WEATHERIZATION ADMINISTRATOR REFERRAL 4. History of fusion of cervical spine V45.4 ORTHO WEATHERIZATION ADMINISTRATOR REFERRAL 5. Chronic left SI joint pain 724.6 ORTHO WEATHERIZATION ADMINISTRATOR REFERRAL 338.29 Recommended a consultation with funeral pre arrangement specialist as patient has had complicated spine [...] of the above issues. Vanda Guerrero MD [facility] documented in this encounter Nursing Notes Lori [...] sacrum documented in this encounter Care Teams Automobile Body Customizer Relationship Specialty Start Date End Date Selma Good, SEAN FELT HAT INSPECTOR AND PACKER PCP - General 04/09/08 04/07/[address] [facility] [place] [address] documented as of this encounter
--- OUTSIDE RECORDS SUMMARY | 2022-02-06 10:20 | XMS_ITS | Encounter Summary ---
:1965 Author Organization [facility] Address [address] [place] [address] Care Team Providers Name Role Phone Selma Good APRN, CNP Primary Care Provider [phone] Reason for Visit Reason Onset Date Comments Refill Request 06/23/2014 FLUTICASONE PROP 50M CG SPRAY Encounter Details Date Type Department Care Team Description 06/23/2014 Refill [facility] Eag Selma Anthony Refill Request 1440 true[x] Media SEAN Angeles CNP (FLUTICASONE PROP 50MCG [place] [phone] 3305 [facility] SPRAY) [phone] [facility] DAVID [place] [phone] (Wo rk) Social History Tobacco Use Types [...] How often do you attend latter-day or islam Patient refused 08/08/2019 services? Do [...] YOSELIN 06-09-14 Filled PSO. Abigail Burciaga RN ISION STRUCTURAL METAL FITTER Telephone Encounter - Marisa Matthew - 06/23/2014 11:53 AM CST Refill request for: FLUTICASONE 50MCG SPRAY Last prescribed by provider: Date: 05/30/2013 Quantity 1 w/ 11 refills Last filled through pharmacy: Date: 05/25/2014 Pharmacy Comments: LUZ ELENA Matthew RT(R) ISION STRUCTURAL METAL FITTER documented in this encounter Plan of Treatment Not on filedocumented as of this encounter Visit Diagnoses Diagnosis OME (otitis media with effusion), left - Primary documented in this encounter Care Teams Round Boner Relationship Specialty Start Date End Date Danilo-Selma Mccoy, FUNERAL HOME ASSISTANT HOME WORKER PCP - General 04/09/08 04/07/15 5065 [facility] [place] [address] documented as of this encounter
--- OUTSIDE RECORDS SUMMARY | 2022-02-06 10:20 | XMS_ITS | Encounter Summary ---
:1965 Author Organization [facility] Address [address] [place] [address] Care Team Providers Name Role Phone Selma Good APRN UNIVERSITY EXTENSION SPECIALIST Primary Care Provider [phone] Encounter Details Date Type Department Care Team Description 08/10/2014 Orders Only [facility] Eag an Type 2 diabetes, HbA1C goal < 7% (H); 1440 [employer] [place] Hyperlipidemia LDL goal <100 ; [place] [phone] Hypertension goal BP (blood pressure) < 130/80 [...] How often do you attend muslim or buddhist Patient refused 08/08/2019 services? Do [...] 2 diabete s, Results for this QUANTITATIVE DINING ROOM HOST/HOSTESS HbA1C goal < 7% (H) procedure are in Hyperlipidemia LDL the [facility] ts goal <100 section. Hypertension goal BP (blood pressure) < 130/80 LIPID REFLEX TO Routine 08/10/2014 8:56 AM Type 2 diabetes, Re sults for this DIRECT LDL PANEL DINING ROOM HOST/HOSTESS HbA1C goal < 7% (H) procedure are in Hyperlipidemia LDL the [facility] ts goal <100 section. Hypertension goal BP (blood pressure) < 130/80 documented in this encounter Results Microalbumin quantitative random urine (08/10/2014 8:57 AM DINING ROOM HOST/HOSTESS) [facility] Method Time Signature Creatinine 41 mg/dL [place] Urine [facility] Albumin Urine <5 mg/L [place] mg/L [facility] Albumin Urine Unable to calculate due to low value 0 - 25 [place] mg/g Cr Effective 01/07/2014, the re ference range for this assay has changed to reflect mg/g Cr [facility] new instrumentation/methodology. HOSPITAL Specimen Anatomical Collection Method Collection Time Receive d Time (Source) Location / / Volume Laterality Urine specimen 08/10/2014 8:57 AM 015 8:58 (specimen) DINING ROOM HOST/HOSTESS AM DINING ROOM HOST/HOSTESS Selma Good APRN UNIVERSITY EXTENSION SPECIALIST LAB - URINE ORDERABLES Performing Organization Address City/State/ZIP Code Phon e Number M [facility] [address] [place] [address] [facility] [address] [place] [address] [facility] [address] [place] [address] [facility] Lipid panel reflex to direct LDL (08/10/2014 8:56 AM DINING ROOM HOST/HOSTESS) P athologist Signature Cholesterol 153 <200 mg/dL [facility] Comment: LDL Cholesterol is the primary guide to therapy. The NCEP recommends further evaluation of: patients with cholesterol greater than 200 mg/dL if additional risk facto rs are present, cholesterol greater than 240 mg/dL, triglycerides greater than 1 50 mg/dL, or HDL less than 40 mg/dL. Triglycerides 79 0 - 150 mg/dL [place] CLI NICS [facility] HDL Cholesterol 61 >50 mg/dL [place] CLINI CS [facility] LDL Cholesterol Calculated 76 0 - 129 mg/dL [facility] Comment: LDL Cholesterol is the primary guide to therapy: LDL-cholesterol goal in high risk patients is <100 mg/dL and in very high risk patients is <70 mg/dL. VLDL-Cholesterol 16 0 - 30 mg/dL [place] Aleyda COUGHLIN [facility] Cholesterol/HDL Ratio 2.5 0.0 - 5.0 [facility] Specimen Anatomical Collection Method Collection Time Receive d Time (Source) Location / / Volume Laterality Blood specimen 08/10/2014 8:56 AM 015 8:57 (specimen) DINING ROOM HOST/HOSTESS AM DINING ROOM HOST/HOSTESS Selma Good APRN, CNP LAB - BLOOD ORDERABLES Performing Organization Address City/State/ZIP Code Phon e Number [facility] [address] [place] [address] documented in this encounter Visit Diagnoses Diagnosis Type 2 diabetes, HbA1c goal < 7% (H) Type II or unspecified type diabetes sukhdev litus without mention of complication, not stated as uncontrolled Hyperlipidemia LDL goal <100 Other and unspecified hyperlipidemia Hypertension goal BP (blood pressure) < 130/80 Unspecified essential hypertension documented in this encounter Care Teams Cartography Technician Relationship Specialty Start Date End Date Selma Good APRN CNP PCP - General 04/09/08 04/07/15 8375 [facility] [place] [address] documented as of this encounter
--- OUTSIDE RECORDS SUMMARY | 2022-02-06 10:20 | XMS_ITS | Encounter Summary ---
:1965 Author Organization [facility] Address [address] [place] [address] Care Team Providers Name Role Phone Selma Good APRN BALL WARPER TENDER Primary Care Provider [phone] Reason for Visit Reason Onset Date Comments Panel Management 08/11/2014 Encounter Details Date Type Department Care Team Description 08/11/2014 Telephone [facility] Selma Hodges Panel Management 1440 [employer] [facility] J, SEAN BALL WARPER TENDER [place] [phone] [facility] [phone] [facility] [place] [address] (Wo rk) [...] How often do you attend restorationist or pentecostal Patient refused 08/08/2019 services? Do [...] Review Date of last visit with a [facility] provider: KATHY on 06-09-14. Date of next visit with a [facility] provider: None. Problem List Patient Active Problem [...] Indicate fasting or not fasting. Charlotte Mark CMA(AAND) O CHECKER documented in this encounter Plan of Treatment Not on filedocumented as of this encounter Visit Diagnoses Not on filedocumented in this encounter Care Teams Pick Up Relationship Specialty Start Date End Date Selma Good APRN BALL WARPER TENDER PCP - General 04/09/08 04/07/15 4845 [facility] [place] [address] documented as of this encounter
--- OUTSIDE RECORDS SUMMARY | 2022-02-06 10:20 | XMS_ITS | Encounter Summary ---
:1965 Author Organization [facility] Address [address] [place] [address] Care Team Providers Name Role Phone Selma Good APRN, CNP Primary Care Provider [phone] Reason for Visit Reason Onset Date Comments Refill Request 08/24/2014 OMEPRAZOLE 20MG Encounter Details Date Type Department Care Team Description 08/24/2014 Refill [facility] Eag Selma Anthony Refill Request 1440 [employer] SEAN Angeles CNP (OMEPRAZOLE 20MG) [place] [phone] [facility] [phone] [facility] [place] [address] (Wo rk) Social [...] reflux documented in this encounter Care Teams Shingle Catcher Relationship Specialty Start Date End Date Danilo-Selma Mccoy, SURVEILLANCE OBSERVER RAIL LOADER PCP - General 04/09/08 04/07/15 [address] [facility] [address] [place], [place] [address] documented as of this encounter
--- OUTSIDE RECORDS SUMMARY | 2022-02-06 10:20 | XMS_ITS | Encounter Summary ---
:1965 Author Organization [facility] Address [address] [place] [address] Care Team Providers Name Role Phone Selma Good GUM PULLER CHIEF AIRLINE RADIO OPERATOR Primary Care Provider [phone] Reason for Visit Reason Onset Date Comments Orders 08/04/2014 Encounter Details Date Type Department Care Team Description 08/04/2014 Telephone [facility] Eag Selma Anthony, Orders 1440 [facility] GUM PULLER [place] Vas[place] [phone] [place] [address] [facility] [place] [address] (Wo rk) [...] How often do you attend mandaeism or pentecostal Patient refused 08/08/2019 services? Do [...] and repeat fasting labs in 2 m L HOLE DRILLER Telephone Encounter - Rossana Adams - 08/04/2014 3:[address] orders for upcoming lab appointment on 08/10/14 Thank you L HOLE DRILLER documented in this encounter Plan of Treatment Not on filedocumented as of this encounter Results Microalbumin quantitative random urine (08/10/2014 8:57 AM JEWEL HOLE DRILLER) Patholo gist Method Time Signature Creatinine 41 mg/dL [place] Urine [facility] Albumin Urine <5 mg/L [place] mg/L [facility] Albumin Urine Unable to calculate due to low value 0 - 25 [place] mg/g Cr Effective 01/07/2014, the re ference range for this assay has changed to reflect mg/g Cr [facility] new instrumentation/methodology. HOSPITAL Specimen Anatomical Collection Method Collection Time Receive d Time (Source) Location / / Volume Laterality Urine specimen 08/10/2014 8:57 AM 015 8:58 (specimen) JEWEL HOLE DRILLER AM JEWEL HOLE DRILLER Selma Good APRN CHIEF AIRLINE RADIO OPERATOR LAB - URINE ORDERABLES Performing Organization Address City/State/ZIP Code Phon e Number M [facility] [address] [place] [address] [facility] [address] [place] [address] [facility] [address] [place], [place] [address] [facility] Lipid panel reflex to direct LDL (08/10/2014 8:56 AM JEWEL HOLE DRILLER) athologist Signature Cholesterol 153 <200 mg/dL [facility] Comment: LDL Cholesterol is the primary guide to therapy. The NCEP recommends further evaluation of: patients with cholesterol greater than 200 mg/dL if additional risk facto rs are present, cholesterol greater than 240 mg/dL, triglycerides greater than 1 50 mg/dL, or HDL less than 40 mg/dL. Triglycerides 79 0 - 150 mg/dL [place] CLI NICS [facility] HDL Cholesterol 61 >50 mg/dL [place] CLINI CS [facility] LDL Cholesterol Calculated 76 0 - 129 mg/dL [facility] Comment: LDL Cholesterol is the primary guide to therapy: LDL-cholesterol goal in high risk patients is <100 mg/dL and in very high risk patients is <70 mg/dL. VLDL-Cholesterol 16 0 - 30 mg/dL [facility] Cholesterol/HDL Ratio 2.5 0.0 - 5.0 [facility] Specimen Anatomical Collection Method Collection Time Receive d Time (Source) Location / / Volume Laterality Blood specimen 08/10/2014 8:56 AM 015 8:57 (specimen) JEWEL HOLE DRILLER AM JEWEL HOLE DRILLER Selma Good APRN, CNP LAB - BLOOD ORDERABLES Performing Organization Address City/State/ZIP Code Phon e Number [facility] [address] [place] [address] documented in this encounter Visit Diagnoses Diagnosis Type 2 diabetes, HbA1c goal < 7% (H) - P rimary Type II or unspecified type diabetes sukhdev litus without mention of complication, not stated as uncontrolled Hyperlipidemia LDL goal <100 Other and unspecified hyperlipidemia Hypertension goal BP (blood pressure) < 130/80 Unspecified essential hypertension documented in this encounter Care Teams Tile Burner Relationship Specialty Start Date End Date Selma Good APRN CNP PCP - General 04/09/08 04/07/15 4034 [facility] [place] [address] documented as of this encounter
--- OUTSIDE RECORDS SUMMARY | 2022-02-06 10:20 | XMS_ITS | Encounter Summary ---
:1965 Author Organization [facility] Address [address] [place] [address] Care Team Providers Name Role Phone Selma Good APRN, CNP Primary Care Provider [phone] Reason for Visit Reason Onset Date Comments Refill Request 08/17/2014 SIMVASTATIN 20MG Refill Request 08/17/2014 LISINOPRIL 5MG Encounter Details Date Type Department Care Team Description 08/17/2014 Refill [facility] Eag Selma Anthony Refill Request 1440 [employer] SEAN Angeles CNP (SIMVASTATIN 20MG); [place] [phone] [address] [facility] Refill Request [phone] NASIR ANDRE (LISINOPRIL 5MG) [place] [address] [...] How often do you attend worship or judaism Patient refused 08/08/2019 services? Do [...] hypertension documented in this encounter Care Teams Experimental Technician Relationship Specialty Start Date End Date Danilo-Selma Mccoy, CNC TECHNICIAN WOOL WASHER PCP - General 04/09/08 04/07/15 [address] [facility] [address] [place], DAV[place] [address] documented as of this encounter
--- OUTSIDE RECORDS SUMMARY | 2022-02-06 10:20 | XMS_ITS | Encounter Summary ---
:1965 Author Organization [facility] Address [address] [place] [address] Care Team Providers Name Role Phone Selma Good APRN, CNP Primary Care Provider [phone] Reason for Visit Reason Onset Date Comments Refill Request 09/20/2014 METFORMIN HCL 1000 M G Encounter Details Date Type Department Care Team Description 09/20/2014 Refill [facility] Eag Selma Anthony Refill Request 1440 [employer] SEAN Angeles CNP (METFORMIN HCL 1000 MG) [place] [phone] [facility] [phone] [facility] DAV[place] [address] (Wo [...] How often do you attend taoist or judaism Patient refused 08/08/2019 services? Do [...] uncontrolled documented in this encounter Care Teams Records Associate Relationship Specialty Start Date End Date Danilo-Selma Mccoy, OPHTHALMIC AIDE LICENSED MENTAL HEALTH COUNSELOR PCP - General 04/09/08 04/07/15 7270 [facility] [place] [address] documented as of this encounter
--- OUTSIDE RECORDS SUMMARY | 2022-02-06 10:20 | XMS_ITS | Encounter Summary ---
:1965 Author Organization [facility] Address [address] [place] [address] Care Team Providers Name Role Phone Selma Good APRN SPECIAL SKILLS OFFICER Primary Care Provider [phone] Reason for Visit Reason Onset Date Comments Refill Request 09/21/2014 SIMVASTATIN 20MG Encounter Details Date Type Department Care Team Description 09/21/2014 Refill [facility] Eag Selma Anthony Refill Request 1440 [employer] SEAN Angeles CNP (SIMVASTATIN 20MG) [place] [phone] 6707 [facility] [phone] [facility] DAV[place] [address] (Wo rk) [...] often do you attend roman catholic or hindu Patient refused 08/08/2019 services? Do [...] Calculated 0 - 129 mg/dL 76 [place] felt finisher Nurse Telephone Encounter - Marisa Matthew - [...] hyperlipidemia documented in this encounter Care Teams Real Estate Investor Relationship Specialty Start Date End Date Danilo-Selma Mccoy, TILE SETTER SUPERVISOR SPECIAL SKILLS OFFICER PCP - General 04/09/08 04/07/15 7875 [facility] [place] [address] documented as of this encounter
--- OUTSIDE RECORDS SUMMARY | 2022-02-06 10:20 | XMS_ITS | Encounter Summary ---
:1965 Author Organization [facility] Address [address] [place] [address] Care Team Providers Name Role Phone Selma Good APRN VB NET PROGRAMMER Primary Care Provider [phone] Reason for Visit Reason Onset Date Comments Refill Request 05/19/[address] 30 MG Encounter Details Date Type Department Care Team Description 05/19/2014 Refill [facility] Selma Hodges Refill Request 1440 [employer] JSEAN CNP (DULOXETINE HCL DR 30MG) [place] [address] [facility] [phone] [facility] DAV[place] [address] (Wo rk) Social History [...] How often do you attend congregational or congregational Patient refused 08/08/2019 services? Do [...] Kallie Golden RN - 05/26/2014 9:41 AM MARKETING COMMUNICATIONS ASSOCIATE Addended by: KALLIE GOLDEN on: 05/26/2014 09:41 AM Modules accepted: Orders ETING COMMUNICATIONS ASSOCIATE Telephone Encounter - Kallie Golden RN - [...] 03/25/14 86/66 12/17/13 90/50 ALT 24 10/27/2013 ETING COMMUNICATIONS ASSOCIATE Telephone Encounter - Mignon Beatty RN - 05/19/2014 3:33 PM CST Filled 04/28/14 for 90 days with refills Mignon Beatty RN ETING COMMUNICATIONS ASSOCIATE Telephone Encounter - Eri Middleton - 05/19/2014 8:38 AM CST Refill request for: DULOXETINE 30 mg Last prescribed by provider: Date: 10/27/2013 Quantity 180 w/ 1 refills Last filled through pharmacy: Date: 02/19/2014 Pharmacy Comments: LUZ ELENA Middleton RT(R) ETING COMMUNICATIONS ASSOCIATE documented in this encounter Plan of Treatment Not on filedocumented as of this encounter Visit Diagnoses Diagnosis Fibromyalgia Mylagia and myositis, unspecified documented in this encounter Care Teams Talent Consultant Relationship Specialty Start Date End Date Danilo-Selma Mccoy, PROJECT COORDINATOR RN VB NET PROGRAMMER PCP - General 04/09/08 04/07/[address] [facility] [address] [place], DAVID [address] documented as of this encounter
--- OUTSIDE RECORDS SUMMARY | 2022-02-06 10:20 | XMS_ITS | Encounter Summary ---
:1965 Author Organization [facility] Address [address] [place] [address] Care Team Providers Name Role Phone Selma Good APRN [facility] Primary Care Provider [phone] Reason for Visit Reason Comments Anxiety Depression Encounter Details Date Type Department Care Team Description 06/09/2014 Office Visit [facility] Florentino, Insomnia (P rimary Dx); Pino Angeles APRN Migraine headache; [address] [facility] Type 2 diabetes, HbA1C goal < 7% (H); [place] [phone] 3302 [facility] Hyperlipidemia LDL goal <100 ; [phone] [facility] Hypertension goal BP (blood pressure) < 130/80; [place] [address] Major depressive disorder, recurrent (H) ; [phone] Anxiety; (Work) OME (otitis media with effusion), [...] Comments Blood Pressure 90/66 06/09/2014 9:31 AM TELEVISION STATION MANAGER Pulse 80 06/09/2014 9:31 AM TELEVISION STATION MANAGER Temperature 36 ??C (96.8 ??F) 06/09/2014 9:31 AM TELEVISION STATION MANAGER Respiratory Rate 16 06/09/2014 9:31 AM TELEVISION STATION MANAGER Oxygen Saturation - - Inhaled Oxygen Concentration - - Weight 68.7 kg (151 lb 6.4 oz) 06/09/2014 9:31 AM TELEVISION STATION MANAGER Height - - Body Mass Index 27.69 10/27/2013 8:53 AM CDT documented in this encounter Patient Instructions Patient InstructionsSelma Good NP - 06/09/2014 9:51 AM TELEVISION STATION MANAGER Restart the simvastatin and we can repeat this lab in about 2 months. Your BP is excellent today so you can continue to be OFF lisinopril. Let's increase the amitriptyline to a total of 40 mg at bedtime. RETURN TO CLINIC 1 month. VISION STATION MANAGER documented in this encounter Progress Notes Selma [...] HELGA-7 SCORE 04/29/2014 Total Score 5 PHQ-9 Malawian PHQ-9 Any Language GAD7 At last visit, [...] Disease) ??? Obesity ??? Family History of ND (Myocardial Infarction) ??? Cervical Pain ??? Insomnia [...] Relation Age of Onset ??? Cardiovascular Mother ND age 72 ??? Cardiovascular Father ND early 40s, subsequent bipass ??? Diabetes Mother [...] TO CLINIC 1 month. Selma Good NP [facility] VISION STATION MANAGER documented in this encounter Nursing Notes Charlotte [...] using cuff size: regular Charlotte Mark CMA(AAMA) VISION STATION MANAGER documented in this encounter Plan of [...] ral documented in this encounter Care Teams Freight Elevator Erector Relationship Specialty Start Date End Date Danilo-Selma Mccoy, IT WEB DEVELOPMENT CONSULTANT EXTRUSION MANAGER PCP - General 04/09/08 04/07/15 3305 [facility] [place] [address] documented as of this encounter
--- OUTSIDE RECORDS SUMMARY | 2022-02-06 10:21 | XMS_ITS | Encounter Summary ---
:1965 Author Organization [facility] Address [address] [place] [address] Care Team Providers Name Role Phone Selma Good APRN MANAGER CCU Primary Care Provider [phone] Encounter Details Date Type Department Care Team Description 08/18/2012 Results Only [facility] Diego marshall MD Clinic [place] [address] [address] [facility] [address] [place] [address] [place] [address] [phone] Social History Tobacco Use Types Packs/Day Years [...] How often do you attend restoration or evangelical Patient refused 08/08/2019 services? Do you belong to any clubs or organizations such as [employer] 08/08/2019 restoration groups, unions, fraternal or athletic [...] on filedocumented in this encounter Care Teams Laborer Tan House Relationship Specialty Start Date End Date Danilo-Selma Mccoy, MILIEU THERAPIST MANAGER CCU PCP - General 04/09/08 04/07/15 [address] [facility] [address] [place], [place] [address] documented as of this encounter
--- OUTSIDE RECORDS SUMMARY | 2022-02-06 10:21 | XMS_ITS | Encounter Summary ---
:1965 Author Organization [facility] Address [address] [place] [address] Care Team Providers Name Role Phone Selma Good APRN CRIME PREVENTION WORKER Primary Care Provider [phone] Reason for Visit Reason Onset Date Comments Refill Request 12/05/2012 metformin hcl 1000mg Encounter Details Date Type Department Care Team Description 12/05/2012 Refill [facility] Eag Selma Anthony Refill Request 1440 [employer] SEAN Angeles CNP (metformin hcl 1000mg) [place] [phone] 6865 [facility] [phone] [facility] [place] [address] (Wo rk) Social History [...] How often do you attend caodaism or spiritism Patient refused 08/08/2019 services? Do [...] uncontrolled documented in this encounter Care Teams Marine Photographer Relationship Specialty Start Date End Date Selma Good, AUTOMOTIVE TITLE CLERK CRIME PREVENTION WORKER PCP - General 04/09/08 04/07/[address] [facility] [address] [place], [place] [address] documented as of this encounter
--- OUTSIDE RECORDS SUMMARY | 2022-02-06 10:21 | XMS_ITS | Encounter Summary ---
:1965 Author Organization [facility] Address [address] [place] [address] Care Team Providers Name Role Phone Selma Good APRN TAILINGS MAN Primary Care Provider [phone] Reason for Visit Reason Onset Date Comments Refill Request 05/05/2014 Accu-Chek multi Clix lancets Encounter Details Date Type Department Care Team Description 05/05/2014 Refill [facility] Eag Selma Anthony Refill Request [address] [facility] SEAN Angeles CNP (Accu-Chek multi Clix [place] [phone] [place] [address] [facility] [phone] [facility] [place] [address] (Wo rk) Social [...] How often do you attend mormonism or adventist Patient refused 08/08/2019 services? Do you belong to any clubs or organizations such as No 08/08/2019 mormonism groups, unions, fraRice University or athletic groups, or school groups? How [...] refilled per RN susy. Iain Barone RN EN PRINTING MACHINE OPERATOR HELPER documented in this encounter Plan of Treatment Not on filedocumented as of this encounter Visit Diagnoses Diagnosis Type 2 diabetes, HbA1c goal < 7% (H) - P rimary Type II or unspecified type diabetes sukhdev litus without mention of complication, not stated as uncontrolled documented in this encounter Care Teams Recreation Coordinator Relationship Specialty Start Date End Date Danilo-Selma Mccoy, SUPERVISOR SLASHING DEPARTMENT TAILINGS MAN PCP - General 04/09/08 04/07/15 [address] [facility] [place] [address] documented as of this encounter
--- OUTSIDE RECORDS SUMMARY | 2022-02-06 10:21 | XMS_ITS | Encounter Summary ---
:1965 Author Organization [facility] Address [address] [place] [address] Care Team Providers Name Role Phone Selma Good APRN [facility] Primary Care Provider [phone] Reason for Visit Reason Comments Diabetes Encounter Details Date Type Department Care Team Description 12/10/2012 Office Visit [facility] Florentino, Type 2 diab etes, HbA1C goal < 7% (H) (Primary Dx); Pino Angeles APRN Major depressive disorder, r ecurrent (H); [address] [facility] Hyperlipidemia LDL goal <100; [place] [phone] 66[address] [facility] Hypertension goal BP (blood pressure) < 130/80; [phone] [facility] [place] [id number] Social History Tobacco Use Types Packs/Day Years [...] often do you attend jehovah's witness or samaritan Patient refused 08/08/2019 services? Do [...] non-fasting labs in May. Selma Good NP, DERRICK MAN [facility] documented in this [...] unspecified documented in this encounter Care Teams Hollock Maker Relationship Specialty Start Date End Date Selma Good, VEGETABLE TIER FLOOR COVERING PRINTER PCP - General 04/09/08 04/07/[address] [facility] [address] [place], [place] [address] documented as of this encounter
--- OUTSIDE RECORDS SUMMARY | 2022-02-06 10:21 | XMS_ITS | Encounter Summary ---
:1965 Author Organization [facility] Address [address] [place] [address] Care Team Providers Name Role Phone Selma Good APRN CONVERTIBLE TOP INSTALLER Primary Care Provider [phone] Reason for Visit Reason Comments Diabetes Encounter Details Date Type Department Care Team Description 10/27/2013 Office Visit [facility] Florentino, Type 2 diab etes, HbA1C goal < 7% (H) (Primary Dx); Pino Angeles APRN Fibromyalgia; [address] [facility] OME (otitis media with effusion), bilate [place] [address] [facility]0 [facility] [phone] [facility] [place] [address] Social History Tobacco [...] for follow up visit. Selma Good NP, DEAF/HARD OF HEARING SPECIALIST [facility] [place] documented in this encounter Nursing [...] Signature Hemoglobin A1C 6.0 4.3 - 6.0 [facility] Specimen Anatomical Collection Method Collection Time Receive d Time (Source) Location / / Volume Laterality Blood specimen 10/27/2013 8:57 AM 014 8:58 (specimen) CDT AM CDT Selma Good APRN CONVERTIBLE TOP INSTALLER LAB - BLOOD ORDERABLES Performing Organization Address City/State/ZIP Code Phon e Number [facility] [address] [place] [address] (ABNORMAL) Lipid panel reflex to direct LDL (10/27/2013 8:57 AM CDT) athologist Signature Cholesterol 106 <200 mg/dL [facility] Comment: LDL Cholesterol is the primary guide to therapy. The NCEP recommends further evaluation of: patients with cholesterol greater than 200 mg/dL if additional risk facto rs are present, cholesterol greater than 240 mg/dL, triglycerides greater than 1 50 mg/dL, or HDL less than 40 mg/dL. Triglycerides 39 0 - 150 mg/dL [facility] HDL Cholesterol 29 (L) >50 mg/dL [facility] LDL Cholesterol Calculated 69 0 - 129 mg/dL [facility] Comment: LDL Cholesterol is the primary guide to therapy: LDL-cholesterol goal in high risk patients is <100 mg/dL and in very high risk patients is <70 mg/dL. VLDL-Cholesterol 8 0 - 30 mg/dL [facility] Cholesterol/HDL Ratio 3.7 0.0 - 5.0 [facility] Specimen Anatomical Collection Method Collection Time Receive d Time (Source) Location / / Volume Laterality Blood specimen 10/27/2013 8:57 AM 014 8:58 (specimen) CDT AM CDT Selma Good APRN CONVERTIBLE TOP INSTALLER LAB - BLOOD ORDERABLES Performing Organization Address City/State/ZIP Code Phon e Number [facility] [address] [place] [address] (ABNORMAL) Comprehensive metabolic panel (10/27/2013 8:57 AM CDT) athologist Signature Sodium 143 133 - 144 [place] mmol/L [facility] Potassium 3.8 3.4 - 5.3 [place] mmol/L [facility] Chloride 107 94 - 109 [place] mmol/L [facility] Carbon Dioxide 26 20 - 32 [place] mmol/L [facility] Anion Gap 10 6 - 17 [place] mmol/L [facility] Glucose 100 (H) 60 - 99 [place] mg/dL [facility] Comment: Fasting specimen Urea Nitrogen 14 7 - 30 mg/dL [facility] Creatinine 0.64 0.52 - 1.04 mg/dL [facility] GFR Estimate >90 >60 mL/min/1.7m2 [facility] GFR Estimate If Black >90 >60 mL/min/1.7m2 F [facility] Calcium 8.9 8.5 - 10.4 mg/dL [facility] Bilirubin Total 0.4 0.2 - 1.3 mg/dL [facility] Albumin 3.4 (L) 3.9 - 5.1 g/dL [facility] Comment: Reference range changed on 02/10. Protein Total 6.5 (L) 6.8 - 8.8 g/dL [facility] Comment: As of 07, reference range reflects plasma specimen type. Alkaline Phosphatase 86 40 - 150 U/L [facility] ALT 24 0 - 50 U/L [facility] EA ALESSAN[facility] AST 20 0 - 45 U/L [facility] ALESSANDRO Specimen Anatomical Collection Method Collection Time Receive d Time (Source) Location / / Volume Laterality Blood specimen 10/27/2013 8:57 AM 014 8:58 (specimen) CDT AM CDT Selma Good APRN, CNP LAB - BLOOD ORDERABLES Performing Organization Address City/State/ZIP Code Phon e Number [facility] [address] [facility] [place] [address] documented in this encounter Visit Diagnoses Diagnosis Type 2 diabetes, HbA1c goal < 7% (H) - P rimary Type II or unspecified type diabetes sukhdev litus without mention of complication, not stated as uncontrolled Fibromyalgia Mylagia and myositis, unspecified OME (otitis media with effusion), bilate ral documented in this encounter Care Teams Regional Recruiter Relationship Specialty Start Date End Date Selma Good APRN CONVERTIBLE TOP INSTALLER PCP - General 04/09/08 04/07/15 [address] [facility] [place] [address] documented as of this encounter
--- OUTSIDE RECORDS SUMMARY | 2022-02-06 10:21 | XMS_ITS | Encounter Summary ---
:1965 Author Organization [facility] Address [facility] [place] [address] Care Team Providers Name Role Phone Selma Angelo APRN [facility] Primary Care Provider Reason for Referral Referral not Required - Closed Specialty Diagnoses / Procedures Referred By Contact Refer red To Contact Diagnoses External hemorrhoids with other complication Diego Nelson MD [facility] [address] [facility] [address] [place] [address] [place] [phone] Fax: Referral ID Status Reason Start Date Expiration Date Visits Requ ested Visits Authorized [id number] Closed 11/15/2011 05/13/2012 1 1 Reason for Visit Reason Comments Procedure EMB - follow-up regarding va ginal itching - nystatin cream did help with sx's - questions concerning area near retum - possible removal of a piece of skin near the rectum Encounter Details Date Type Department Care Team Description 11/15/2011 Office Visit [facility] Diego Nelson Menorrh agia (Primary Dx); Pino Alejandro MD External hemorrhoids with other complica tion [address] [employer] [address] [facility] [place] [address] [facility] [phone] [place] [address] Social History Tobacco Use [...] How often do you attend episcopal or synagogue Patient refused 08/08/2019 services? Do [...] Value Ref Test Analysis Performed At [facility] Range Method Time Signature Copath Report Patient Name: PADMINI CHOI MR#: [id number] Specimen #: [id number] Collected: 11/15/2011 Received: 11/16/2011 Reported: 11/17/2011 14:07 [...] is performed. SA/sg /11-17-11 TESTING LAB LOCATION: [address] ??[address] COLLECTION SITE: Client: [facility] Location: EAOB (R) Specimen Anatomical Collection Method [...] tion documented in this encounter Care Teams Building Custodian Relationship Specialty Start Date End Date Danilo-Selma Mccoy, MANAGEMENT AIDE KNIFE SETTER GRINDER MACHINE PCP - General 04/09/08 04/07/15 [address] [facility] [place] [address] documented as of this encounter
--- OUTSIDE RECORDS SUMMARY | 2022-02-06 10:21 | XMS_ITS | Encounter Summary ---
:1965 Author Organization [facility] Address [address] [place] [address] Care Team Providers Name Role Phone Selma Good APRN [facility] Primary Care Provider [phone] Encounter Details Date Type Department Care Team Description 05/27/2013 Radiant Appointment [facility] Lexii Good cancer Pino Angeles, DEMURRAGE MAN screening [address] [facility] ,[address] [place], [place], [place] [address] Social History Tobacco Use Types Packs/Day [...] How often do you attend caodaism or caodaism Patient refused 08/08/2019 services? Do [...] Procedure Name Priority Date/Time Associated Diagnosis Comme [facility] SCREENING Routine 05/27/2013 1:54 PM Breast cancer Results for this DIGITAL BILATERAL SPECIAL EDUCATION ITINERANT TEACHER screening procedure are in the results section. documented in this encounter Results Mammo Screening digital (bilat) (05/27/2013 1:54 PM SPECIAL EDUCATION ITINERANT TEACHER) Anatomical Region Laterality Modality Breast Bilateral Mammography Specimen (Source) Anatomical Location Collection Method / Collectio n Time Received Time / Laterality Volume Impressions 05/28/2013 9:50 AM SPECIAL EDUCATION ITINERANT TEACHER IMPRESSION: BI-RADS CATEGORY: 1 - ??NEGATIVE. RECOMMENDED FOLLOW-UP: Annual Mammograph y. Exam results letter mailed to patient. JOSE DAO MD Narrative 05/28/2013 9:50 AM SPECIAL EDUCATION ITINERANT TEACHER SCREENING MAMMOGRAM, BILATERAL, DIGITAL w/CAD - 05/27/2013 [...] documented in this encounter Care Teams Automotive Shop Foreman Relationship Specialty Start Date End Date Selma Good APRN EXTRACTOR LOADER AND UNLOADER PCP - General 04/09/08 04/07/[address] [facility] [address] [place], [place] [address] documented as of this encounter
--- OUTSIDE RECORDS SUMMARY | 2022-02-06 10:21 | XMS_ITS | Encounter Summary ---
:1965 Author Organization [facility] Address [address] [place] [address] Care Team Providers Name Role Phone Selma Good APRN [facility] Primary Care Provider Reason for Visit Reason Comments Musculoskeletal Problem Encounter Details Date Type Department Care Team Description 03/25/2014 Office Visit [facility] Florentino, Janey speci fihermes idiopathic peripheral neuropathy (Primary Dx); Pino Angeles APRN Insomnia; [address] [email or web address] [facility] Type 2 diabetes, HbA1C goal < 7% (H); [place] [phone] [place] [address] Major depressive disorder, r ecurrent (H); [phone] [facility] [place] [id number] Social History Tobacco Use Types Packs/Day Years [...] How often do you attend tenriism or religion Patient refused 08/08/2019 services? Do [...] Disease) ??? Obesity ??? Family History of [place] (Myocardial Infarction) ??? Cervical Pain ??? Insomnia [...] Father [place] early 40s, subsequent bipass ??? Diabetes Mother [...] month for follow up. Selma Good NP, UNDERWATER TRAPPER [facility] documented in this encounter Nursing [...] Signature Vitamin D 36 30 - 75 [facility] Deficiency ug/L [facility] screening Comment: Season, race, dietary intake, and treatm ent affect the concentration of 38-oaaigbx-Eqjtsyo D. Values may decrea se during winter [...] questions, pl ease contact the laboratory at [phone]. Specimen Anatomical Collection Method Collection Time Receive d Time (Source) Location / / Volume Laterality Blood specimen 03/25/2014 3:16 PM 014 3:19 (specimen) CDT PM CDT Selma Good APRN, CNP LAB - BLOOD ORDERABLES Performing Organization Address City/State/ZIP Code Phon e Number [facility] [address] [place] [address] [facility] TSH with free T4 reflex (03/25/2014 3:16 PM CDT) athologist Signature TSH 2.39 0.40 - 4.00 [facility] mU/L [place] Comment: Effective 01/07/2014, the reference range for this assay has changed to reflect new instrumentation/methodology. Specimen Anatomical Collection Method Collection Time Receive d Time (Source) Location / / Volume Laterality Blood specimen 03/25/2014 3:16 PM 014 3:19 (specimen) CDT PM CDT Selma Good APRN, CNP LAB - BLOOD ORDERABLES Performing Organization Address City/[facility]/ZIP Code Phon e Number [facility] [address] [place] [address] [facility] [address] [place] [address] Hemoglobin A1c (03/25/2014 3:16 PM CDT) athologist Signature Hemoglobin A1C 5.9 4.3 - 6.0 [facility] Specimen Anatomical Collection Method Collection Time Receive d Time (Source) Location / / Volume Laterality Blood specimen 03/25/2014 3:16 PM 014 3:19 (specimen) CDT PM CDT Selma Good APRN, CNP LAB - BLOOD ORDERABLES Performing Organization Address City/State/ZIP Code Phon e Number [facility] [address] [place] [address] documented in this encounter Visit Diagnoses Diagnosis [...] unspecified documented in this encounter Care Teams Certified Diabetes Educator Relationship Specialty Start Date End Date Danilo-Selma Mccoy, ARCHIVIST ECONOMIC HISTORY ENVIRONMENTAL HEALTH AND SAFETY MANAGER PCP - General 04/09/08 04/07/[address] [facility] [place] [address] documented as of this encounter
--- OUTSIDE RECORDS SUMMARY | 2022-02-06 10:21 | XMS_ITS | Encounter Summary ---
:1965 Author Organization [facility] Address [address] [place] [address] Care Team Providers Name Role Phone Selma Good APRN COMPONENT LAB TECH Primary Care Provider [phone] Reason for Visit Reason Onset Date Comments Refill Request 04/01/2012 topamax Encounter Details Date Type Department Care Team Description 04/01/2012 Refill [facility] Eag Selma Anthony Refill Request (topamax) [address] [employer] J, DATA ANALYTICS ANALYST COMPONENT LAB TECH [place] [address] [facility] [phone] [facility] DAVID [...] How often do you attend samaritan or yarsani Patient refused 08/08/2019 services? Do [...] migrainosus documented in this encounter Care Teams Physician Recruiter Relationship Specialty Start Date End Date Selma Good, DATA ANALYTICS ANALYST COMPONENT LAB TECH PCP - General 04/09/08 04/07/[address] [facility] [facility] [address] [place], [place] [address] documented as of this encounter
--- OUTSIDE RECORDS SUMMARY | 2022-02-06 10:21 | XMS_ITS | Encounter Summary ---
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 Insurance changin g June 11, 2012 Encounter Details Date Type Department Care Team Description 05/29/2012 Office Visit [facility] Florentino Type 2 diab etes, HbA1C goal < 7% (H) (Primary Dx); Pino Angeles APRN Migraine headache; [address] [employer] [facility] Cervical pain; [place] [phone] [address] [facility] Hypertension goal BP (blood pressure) < 130/80; [phone] [facility] Hyperlipidemia LDL goal <100; [place] [address] GERD (gastroesophageal reflux disease); [phone] Breast cancer s creening; (Work) Need for [...] organizations such as No 08/08/2019 confucianist groups, Grazes, fraCloudary or athletic groups, or school groups? How [...] Comments Blood Pressure 90/61 05/29/2012 10:32 AM TRACK DRESSER Pulse 73 05/29/2012 10:32 AM TRACK DRESSER Temperature 37 ??C (98.6 ??F) 05/29/2012 10:32 AM TRACK DRESSER Respiratory Rate - - Oxygen Saturation - - Inhaled Oxygen Concentration - - Weight 73.9 kg (163 lb) 05/29/2012 10:32 AM TRACK DRESSER Height 157.5 cm (5' 2) 05/29/2012 10:32 AM TRACK DRESSER Body Mass Index 29.81 05/29/2012 10:32 AM TRACK DRESSER documented in this encounter Patient Instructions Patient InstructionsSelma Good NP - 05/29/2012 11:08 AM TRACK DRESSER Schedule a lab only fasting appointment within [...] that could help with mood and pain. K DRESSER documented in this encounter Progress Notes Selma [...] list, Allergies, and Medical/Social/Surgical histories reviewed in [facility] andupdated as appropriate. OBJECTIVE: Temp(Src) 98.6 ??F [...] that could help with mood and pain. 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 Insurance changing 2012 Initial BP 90/61 Pulse [...] nts MIGRAINE QUESTIONNAIRE Routine 05/28/2012 10:49 AM TRACK DRESSER Migrain e headache documented in this encounter [...] influenza documented in this encounter Care Teams Impregnating Machine Operator Relationship Specialty Start Date End Date Danilo-Selma Mccoy, UROLOGY NURSE INDEPENDENT CROP CONSULTANT PCP - General 04/09/08 04/07/15 [address] [facility] [place] [address] documented as of this encounter
--- OUTSIDE RECORDS SUMMARY | 2022-02-06 10:21 | XMS_ITS | Encounter Summary ---
:1965 Author Organization [facility] Address [address] [place] [address] Care Team Providers Name Role Phone Selma Good APRN FILM CUTTER Primary Care Provider Reason for Referral Consultation - Closed Specialty Diagnoses / Procedures Referred By Contact Refer red To Contact Diagnoses OME (otitis media with effusion), bilateral Selma Good, NEWELL ALLERGY AND HYPERBARIC TECHNOLOGIST [facility] ASTHMA [address] [facility] [place] [address] Referral ID Status Reason Start Date Expiration Date Visits Requ ested Visits Authorized [id number] Closed 12/17/2013 06/15/2014 1 1 Reason for Visit Reason Comments RECHECK Encounter Details Date Type Department Care Team Description 12/17/2013 Office Visit [facility] Le Good al lergic rhinitis (Primary Dx); Pino Angeles APRN OME (otitis media with effus ion), bilateral; [address] [facility] Amenorrhea [place] [address] [address] [facility] [phone] [facility] [place] [address] Social History Tobacco [...] How often do you attend gnosticism or sikh Patient refused 08/08/2019 services? Do you belong to any clubs or organizations such as No 08/08/2019 gnosticism groups, PicLyfs, fraBIXI or athletic groups, or school groups? How [...] Disease) ??? Obesity ??? Family History of [place] (Myocardial Infarction) ??? Cervical Pain ??? Insomnia [...] ??? Cardiovascular Mother [place] age 72 ??? Cardiovascular Father [place] early 40s, subsequent bipass ??? Diabetes Mother [...] file for this visit. Selma Good NP, [facility] documented in this encounter Nursing [...] menstruation documented in this encounter Care Teams Research Associate Quality Control Qc Relationship Specialty Start Date End Date Selma Godo, HYPERBARIC TECHNOLOGIST FILM CUTTER PCP - General 04/09/08 04/07/[address] [place] [address] documented as of this encounter
--- OUTSIDE RECORDS SUMMARY | 2022-02-06 10:21 | XMS_ITS | Encounter Summary ---
:1965 Author Organization [facility] Address [address] [place] [address] Care Team Providers Name Role Phone Selma Good APRN [facility] Primary Care Provider [phone] Reason for Visit Reason Comments Depression Encounter Details Date Type Department Care Team Description 04/29/2014 Office Visit [facility] Florentino, Anxiety (Pr imary Dx); Pino Angeles APRN Insomnia; [address] [facility] Major depressive disorder, recurrent (H) ; [place] [phone] [address] [facility] Need for prophylactic vaccin ation and inoculation against influenza; [phone] [facility] Need for prophylactic vaccination agains t Streptococcus pneumoniae (pneumococcus); [place] [address] Type 2 diabetes, HbA1C goal < 7% (H); [phone] Hypertension go al BP (blood pressure) < [...] How often do you attend christian or buddhist Patient refused 08/08/2019 services? Do [...] Comments Blood Pressure 86/54 04/29/2014 1:55 PM BARREL DEDENTING MACHINE OPERATOR Pulse 76 04/29/2014 1:55 PM BARREL DEDENTING MACHINE OPERATOR Temperature 35.4 ??C (95.7 ??F) 04/29/2014 1:55 PM BARREL DEDENTING MACHINE OPERATOR Respiratory Rate 16 04/29/2014 1:55 PM BARREL DEDENTING MACHINE OPERATOR Oxygen Saturation - - Inhaled Oxygen Concentration - - Weight 67.9 kg (149 lb 9.6 oz) 04/29/2014 1:55 PM BARREL DEDENTING MACHINE OPERATOR Height - - Body Mass Index 27.36 10/27/2013 8:53 AM CDT documented in this encounter Patient Instructions Patient InstructionsSelma Good NP - 04/29/2014 2:26 PM BARREL DEDENTING MACHINE OPERATOR STOP the lisinopril AND the simvastatin. Schedule [...] discussed possible side effects to this medication. EL DEDENTING MACHINE OPERATOR documented in this encounter Progress Notes Selma [...] (QUADRIVALENT W/PRESERVATIVES) - Seasonal Injectionable Immunization Administration [83263] 5. Need for prophylactic vaccination against Streptococcus [...] effects to this medication. Selma Good NP [facility] Injectable Influenza Immunization Documentation 1. Is [...] the person to be vaccinated ever had Guillain-Harrisburg syndrome? No Form completed by self Form reviewed by Charlotte Mark CMA([facility]) EL DEDENTING MACHINE OPERATOR documented in this encounter Nursing Notes Charlotte [...] completed using cuff size: regular Charlotte Mark CMA([facility]) EL DEDENTING MACHINE OPERATOR documented in this encounter Plan [...] documented in this encounter Care Teams Rn Outpatient Surgery Relationship Specialty Start Date End Date Danilo-Selma Mccoy, MANAGER OFFICE LEAD ATHLETE PCP - General 04/09/08 04/07/15 [address] [facility] [place] [address] documented as of this encounter
--- OUTSIDE RECORDS SUMMARY | 2022-02-06 10:21 | XMS_ITS | Encounter Summary ---
:1965 Author Organization [facility] Address [address] [place] [address] Care Team Providers Name Role Phone Selma Good APRN ORACLE ETL DEVELOPER Primary Care Provider [phone] Reason for Referral Specialty Diagnoses / Procedures Referred By Contact Refer red To Contact Rayo Whitehead DPM [address] [place] [address] Referral ID Status Reason Start Date Expiration Date Visits Requ ested Visits Authorized Reason for Visit Reason Comments Musculoskeletal Problem left great toe- possible fun anette. Diabetic foot check. Encounter Details Date Type Department Care Team Description 02/21/2013 Office Visit [facility] Rayo Whitehead Type II or unspecified type diabetes mellitus without mention of complication, not stated as uncontrolled (Primary Dx); Pino Jacome DPM Contusion of toe [address] [place] [address] E [phone] [address] [place], [place] [address] Social History Tobacco Use Types [...] How often do you attend temple or worship Patient refused 08/08/2019 services? Do you belong to any clubs or organizations such as No 08/08/2019 temple groups, [employer], fraternal or athletic groups, or school groups? [...] sensation to light touch and using 5.07 Wharton-Tanisha wire is present to both feet. Skin [...] toe documented in this encounter Care Teams Internet E Commerce Specialist Relationship Specialty Start Date End Date Danilo-Selma Mccoy, HUMAN RESOURCES PROFESSIONAL ORACLE ETL DEVELOPER PCP - General 04/09/08 04/07/15 [address] [facility] [place] [address] documented as of this encounter
--- OUTSIDE RECORDS SUMMARY | 2022-02-06 10:21 | XMS_ITS | Encounter Summary ---
:1965 Author Organization [facility] Address [address] [place] [address] Care Team Providers Name Role Phone Selma Good APRN SENIOR TRIAL ATTORNEY Primary Care Provider [phone] Vanda Guerrero MD Primary Care Provider [phone] Encounter Details Date Type Department Care Team Description 10/29/2011 Historic Results [facility] Heart Unknown, [facility] [address] [place] [address] Social History Tobacco Use Types [...] often do you attend oriental orthodox or worship Patient refused 08/08/2019 services? Do [...] on filedocumented in this encounter Care Teams Dispatcher Service Or Work Relationship Specialty Start Date End Date Selma Good APRN SENIOR TRIAL ATTORNEY PCP - General 04/09/08 04/07/[address] [facility] [place] [address] Vanda Guerrero MD PCP - General Internal Medicine 04/08/15 01/08/[address] [facility] [address] [place], [place] [address] documented as of this encounter
--- OUTSIDE RECORDS SUMMARY | 2022-02-06 10:21 | XMS_ITS | Encounter Summary ---
:1965 Author Organization [facility] Address [address] [place] [address] Care Team Providers Name Role Phone Selma Good APRN FARM MACHINERY ERECTOR Primary Care Provider [phone] Encounter Details Date Type Department Care Team Description 06/05/2012 Orders Only [facility] Eag an Type 2 diabetes, HbA1C goal < 7% (H); [address] Hyperlipidemia LDL goal <100 [place] [id number] Social History Tobacco Use Types Packs/Day Years [...] How often do you attend orthodox or judaism Patient refused 08/08/2019 services? Do [...] 2 diabete s, Results for this QUANTITATIVE CAR BODY INSPECTOR HbA1C goal < 7% (H) procedur e are in the results section. LIPID REFLEX TO DIRECT Routine 06/05/2012 7:48 AM Type 2 diabe shirley, Results for this LDL PANEL CAR BODY INSPECTOR HbA1C goal < 7% (H) procedure are in Hyperlipidemia LDL the resul ts goal <100 section. HEMOGLOBIN A1C Routine 06/05/2012 7:48 AM Type 2 diabetes, Res ults for this CAR BODY INSPECTOR HbA1C goal < 7% (H) procedur e are in the results section. COMPREHENSIVE Routine 06/05/2012 7:48 AM Type 2 diabetes, Resu lts for this METABOLIC PANEL CAR BODY INSPECTOR HbA1C goal < 7% (H) proce dure are in the results section. documented in this encounter Results (ABNORMAL) Comprehensive metabolic panel (06/05/2012 7:48 AM CAR BODY INSPECTOR) athologist Signature Sodium 141 133 - 144 [place] mmol/L [facility] Potassium 4.1 3.4 - 5.3 [place] mmol/L [facility] Chloride 103 94 - 109 [place] mmol/L [facility] Carbon Dioxide 22 20 - 32 [place] mmol/L [facility] Anion Gap 16 6 - 17 [place] mmol/L [facility] Glucose 123 (H) 60 - 99 [place] mg/dL [facility] Urea Nitrogen 16 5 - 24 [place] mg/dL [facility] Creatinine 0.75 0.52 - [facility] 1.04 mg/dL [facility] GFR Estimate 82 >60 [place] mL/min/1.7 [facility] m2 LAB GFR Estimate If >90 >60 [place] Black mL/min/1.7 [facility] m2 LAB Calcium 9.7 8.5 - 10.4 [place] mg/dL [facility] Bilirubin Total 0.6 0.2 - 1.3 [place] mg/dL [facility] Albumin 4.4 3.9 - 5.1 [place] g/dL [facility] Comment: Reference range changed on 02/10. Protein Total 7.5 6.8 - 8.8 g/dL [facility] Comment: As of 07, reference range reflects plasma specimen type. Alkaline Phosphatase 83 40 - 150 U/L [facility] ALT 28 0 - 50 U/L [facility] IC LAB AST 19 0 - 45 U/L [facility] LAB Specimen Anatomical Collection Method Collection Time Receive d Time (Source) Location / / Volume Laterality Blood specimen 06/05/2012 7:48 AM 012 7:53 (specimen) CAR BODY INSPECTOR AM CAR BODY INSPECTOR Selma Good APRN FARM MACHINERY ERECTOR LAB - BLOOD ORDERABLES Performing Organization Address City/State/ZIP Code Phon e Number [facility] [address] [place] [address] [facility] Microalbumin quantitative, random urine (06/05/2012 7:48 AM CAR BODY INSPECTOR) athologist Signature Creatinine 208 mg/dL [facility] Urine CAMPUS LABS Albumin Urine 13 mg/L [facility] mg/L [place] [facility] Albumin Urine 6.25 0 - 25 [facility] mg/g Cr mg/g Cr CAMPUS LABS Specimen Anatomical Collection Method Collection Time Receive d Time (Source) Location / / Volume Laterality Urine specimen 06/05/2012 7:48 AM 012 7:53 (specimen) CAR BODY INSPECTOR AM CAR BODY INSPECTOR Selma Good APRN, CNP LAB - URINE ORDERABLES Performing Organization Address City/[facility]/ZIP Code Phon e Number [facility] [address] [place] [address] [facility] LABS (ABNORMAL) Lipid panel reflex to direct LDL (06/05/2012 7:48 AM CAR BODY INSPECTOR) athologist Signature Cholesterol 126 0 - 200 [facility] mg/dL CLINIC LAB Comment: LDL Cholesterol is the primary guide to therapy. The NCEP recommends further evaluation of: patients with cholesterol greater than 200 mg/dL if additional risk facto rs are present, cholesterol greater than 240 mg/dL, triglycerides greater than 1 50 mg/dL, or HDL less than 40 mg/dL. Triglycerides 84 0 - 150 mg/dL [facility] HDL Cholesterol 43 (L) 50 - 110 mg/dL [facility] LDL Cholesterol Calculated 66 0 - 129 mg/dL [facility] Comment: LDL Cholesterol is the primary guide to therapy: LDL-cholesterol goal in high risk patients is <100 mg/dL and in very high risk patients is <70 mg/dL. VLDL-Cholesterol 17 0 - 30 mg/dL [facility] Cholesterol/HDL Ratio 2.9 0.0 - 5.0 [facility] Specimen Anatomical Collection Method Collection Time Receive d Time (Source) Location / / Volume Laterality Blood specimen 06/05/2012 7:48 AM 012 7:53 (specimen) CAR BODY INSPECTOR AM CAR BODY INSPECTOR Selma Good APRN, CNP LAB - BLOOD ORDERABLES Performing Organization Address City/State/ZIP Code Phon e Number [facility] [address] [place] [address] [facility] Hemoglobin A1c (06/05/2012 7:48 AM CAR BODY INSPECTOR) athologist Signature Hemoglobin A1C 5.8 4.3 - 6.0 [facility] % CLINIC LAB Specimen Anatomical Collection Method Collection Time Receive d Time (Source) Location / / Volume Laterality Blood specimen 06/05/2012 7:48 AM 012 7:53 (specimen) CAR BODY INSPECTOR AM CAR BODY INSPECTOR Selma Good APRN, CNP LAB - BLOOD ORDERABLES Performing Organization Address City/State/ZIP Code Phon e Number [place] [id number] [facility] [place] [address] [facility] documented in this encounter Visit Diagnoses Diagnosis Type 2 diabetes, HbA1c goal < 7% (H) Type II or unspecified type diabetes sukhdev litus without mention of complication, not stated as uncontrolled Hyperlipidemia LDL goal <100 Other and unspecified hyperlipidemia documented in this encounter Care Teams Inventory Taker Relationship Specialty Start Date End Date Selma Good APRN CNP PCP - General 04/09/08 04/07/15 [address] [facility] [place] [address] documented as of this encounter
--- OUTSIDE RECORDS SUMMARY | 2022-02-06 10:21 | XMS_ITS | Encounter Summary ---
:1965 Author Organization [facility] Address [address] [place] [address]. [place] [address] Care Team Providers Name Role Phone Selma Good APRN [facility] Primary Care Provider [phone] Reason for Referral Consultation - Closed Specialty Diagnoses / Procedures Referred By Contact Refer red To Contact Diagnoses Dizziness Selma Good [facility] [address] [place] [phone] [place] [id number] Referral ID Status Reason Start Date Expiration Date Visits Requ ested Visits Authorized [id number] Closed 05/30/2013 11/26/2013 1 1 UCT TECHNICIAN Reason for Visit Reason Comments Diabetes Encounter Details Date Type Department Care Team Description 05/30/2013 Office Visit [facility] Florentino, Type 2 diab etes, HbA1C goal < 7% (H) (Primary Dx); Pino Angeles APRN Screen for colon cancer; 14[address] [facility] Screening for diabetic retinopathy; [place] [phone] [place] [address] Screening for diabetic perip heral neuropathy; [phone] [facility] Need for prophylactic vaccination and in oculation against influenza; [place] [address] Hyperlipidemia LDL goal <100; [phone] GERD (gastroeso phageal reflux disease); (Work) Hypertension goal BP (blood pressure) < 130/80; [phone] Fibromyalgia; (Fax) Migraine headac he; Obesity; Major [...] How often do you attend nondenominational or adventist Patient refused 08/08/2019 services? Do [...] Comments Blood Pressure 90/56 05/30/2013 1:02 PM PRODUCT TECHNICIAN Pulse 68 05/30/2013 1:02 PM PRODUCT TECHNICIAN Temperature 36.7 ??C (98.1 ??F) 05/30/2013 1:02 PM PRODUCT TECHNICIAN Respiratory Rate 16 05/30/2013 1:02 PM PRODUCT TECHNICIAN Oxygen Saturation 98% 05/30/2013 1:02 PM PRODUCT TECHNICIAN Inhaled Oxygen Concentration - - Weight 67.9 kg (149 lb 11.2 oz) 05/30/2013 1:02 PM PRODUCT TECHNICIAN Height 157.5 cm (5' 2) 05/30/2013 1:02 PM PRODUCT TECHNICIAN Body Mass Index 27.38 05/30/2013 1:02 PM PRODUCT TECHNICIAN documented in this encounter Patient Instructions Patient InstructionsSelma Good NP - 05/30/2013 1:27 PM PRODUCT TECHNICIAN We'll check your labs to find explanation for the dizziness. If they are normal, I'd like you to schedule an appointment with [facility]NT. [facility] [phone] In the mean time, try the nasal spray to see if it helps. UCT TECHNICIAN documented in this encounter Progress Notes [...] / Panic / Manic symptoms: No PHQ-9 Mongolian PHQ-9 Any Language ?? Amount of exercise [...] Disease) ??? Obesity ??? Family History of AK (Myocardial Infarction) ??? Cervical Pain ??? Insomnia [...] Relation Age of Onset ??? Cardiovascular Mother AK age 72 ??? Cardiovascular Father AK early 40s, subsequent bipass ??? Diabetes Mother [...] against influenza Comment: Plan: ADMIN VACCINE, FIRST [35123], C FLU VACCINE, 3 YRS +, IM (QUADRIVALENT NO PRESERVATIVES) 272.4 Hyperlipidemia LDL goal <100 Comment: Plan: simvastatin (ZOCOR) 20 MG tablet 530.81 GERD (gastroesophageal reflux disease) Comment: Plan: omeprazole (PRILOSEC) 20 MG capsule 401.9 Hypertension goal BP (blood pressure) < 130/80 Comment: Plan: lisinopril (PRINIVIL,ZESTRIL) 5 MG tablet 729.1 Fibromyalgia Comment: Plan: DEPRESSION ACTION PLAN (DAP) Order [[id number]], DULoxetine (CYMBALTA) 30 MG capsule 346.90 Migraine [...] with [facility]. [facility] [phone] In the mean time, try the nasal spray to see if it helps. Selma Good NP, SENIOR CORPORATE RECRUITER [facility] UCT TECHNICIAN documented in this encounter Nursing Notes [...] Name Type Priority Associated Diagnoses [facility] Referral Routine Dizziness Orde red: 05/30/2013 documented as of this encounter Procedures Procedure Name Priority Date/Time Associated Diagnosis Comme nts ALBUMIN RANDOM URINE Routine 05/30/2013 1:50 PM Type 2 diabete s, Results for this QUANTITATIVE PRODUCT TECHNICIAN HbA1C goal < 7% (H) procedur e are in the results section. VITAMIN D DEFICIENCY Routine 05/30/2013 1:49 PM Dizziness R esults for this SCREENING PRODUCT TECHNICIAN procedure are i n the results section. TSH WITH FREE T4 Routine 05/30/2013 1:49 PM Dizziness Resul ts for this REFLEX PRODUCT TECHNICIAN procedure are i n the results section. HEMOGLOBIN A1C Routine 05/30/2013 1:49 PM Type 2 diabetes, Res ults for this PRODUCT TECHNICIAN HbA1C goal < 7% (H) procedur e are in the results section. CBC WITH PLATELETS Routine 05/30/2013 1:49 PM Dizziness Res ults for this PRODUCT TECHNICIAN procedure are i n the results section. C FOOT EXAM Routine 05/30/2013 1:27 PM Screening for PRODUCT TECHNICIAN diabetic peripheral neuropathy EYE EXAM Routine 05/30/2013 1:27 PM Screening for (SIMPLE-NONBILLABLE) PRODUCT TECHNICIAN diabetic retinopathy documented in this encounter Results MICROALBUMIN QUANTITATIVE RANDOM URINE (05/30/2013 1:50 PM PRODUCT TECHNICIAN) Component Value Ref Test Analysis Performed At Patholo gist Range Method Time Signature Creatinine 146 mg/dL [facility] Urine [facility]S Albumin Urine <5 mg/L [facility] mg/L Urine Microalbumin lowest re portable value has been changed from 2 mg/L to 5 UNIVERSITY mg/L due to a methodology change on September. CAMPUS LABS Albumin Urine Unable to 0 - 25 [facility] mg/g Cr calculate mg/g Cr [facility] Specimen Anatomical Collection Method Collection Time Receive d Time (Source) Location / / Volume Laterality Urine specimen 05/30/2013 1:50 PM 013 1:52 (specimen) PRODUCT TECHNICIAN PM PRODUCT TECHNICIAN Selma Good APRN HOLE DIGGER OPERATOR LAB - URINE ORDERABLES Performing Organization Address City/State/ZIP Code Phon e Number [facility] [address] LABS (ABNORMAL) Vitamin D Deficiency (05/30/2013 1:49 PM PRODUCT TECHNICIAN) athologist Signature Vitamin D 27 (L) 30 - 75 [facility] Deficiency ug/L [facility] LABS Comment: Season, race, dietary intake, and treatm ent affect the concentration of 77-vuxxwvj-Rztuelf D. Values may decrea se during winter [...] questions, pl ease contact the laboratory at [phone]. Specimen Anatomical Collection Method Collection Time Receive d Time (Source) Location / / Volume Laterality Blood specimen 05/30/2013 1:49 PM 013 1:51 (specimen) PRODUCT TECHNICIAN PM PRODUCT TECHNICIAN Selma Good APRN HOLE DIGGER OPERATOR LAB - BLOOD ORDERABLES Performing Organization Address City/State/ZIP Code Phon e Number [facility] [address] [place] [address] [facility] LABS CBC with platelets (05/30/2013 1:49 PM PRODUCT TECHNICIAN) athologist Signature WBC 7.0 4.0 - [...] specimen 05/30/2013 1:49 PM 013 1:51 (specimen) PRODUCT TECHNICIAN PM PRODUCT TECHNICIAN Selma Good APRN, CNP LAB - BLOOD ORDERABLES Performing Organization Address City/State/ZIP Code Phon e Number [facility] [address] [place] [address] TSH with free T4 reflex (05/30/2013 1:49 PM PRODUCT TECHNICIAN) athologist Signature TSH 1.68 0.4 - 5.0 [facility] mU/L [place] Specimen Anatomical Collection Method Collection Time Receive d Time (Source) Location / / Volume Laterality Blood specimen 05/30/2013 1:49 PM 013 1:51 (specimen) PRODUCT TECHNICIAN PM PRODUCT TECHNICIAN Selma Good APRN, CNP LAB - BLOOD ORDERABLES Performing Organization Address City/State/ZIP Code Phon e Number [facility] [address] [place] [address] [facility] [address] [place], [place] [address] HEMOGLOBIN A1C (05/30/2013 1:49 PM PRODUCT TECHNICIAN) P athologist Signature Hemoglobin A1C 5.6 4.3 - 6.0 [facility] Specimen Anatomical Collection Method Collection Time Receive d Time (Source) Location / / Volume Laterality Blood specimen 05/30/2013 1:49 PM 013 1:51 (specimen) PRODUCT TECHNICIAN PM PRODUCT TECHNICIAN Selma Good APRN, CNP LAB - BLOOD ORDERABLES Performing Organization Address City/State/ZIP Code Phon e Number [facility] [address] [facility] [place] [address] documented in this encounter Visit Diagnoses Diagnosis [...] left documented in this encounter Care Teams Childcare Attendant Relationship Specialty Start Date End Date Selma Good APRN CNP PCP - General 04/09/08 04/07/15 [address] [facility] [place] [address] documented as of this encounter
--- OUTSIDE RECORDS SUMMARY | 2022-02-06 10:21 | XMS_ITS | Encounter Summary ---
:1965 Author Organization [facility] Address [address] [place] [address] Care Team Providers Name Role Phone Selma Good APRN, CNP Primary Care Provider [phone] Reason for Visit Reason Onset Date Comments Refill Request 04/23/2014 CITALOPRAM 20MG Encounter Details Date Type Department Care Team Description 04/23/2014 Refill [facility] Selma Hodges Refill Request [address] [employer] SEAN Angeles CNP (CITALOPRAM 20MG) [place] [phone] [place] [address] [facility] [place] [address] (Wo rk) Social [...] Keyona Salcido RN - 04/24/2014 12:39 PM VICE PRESIDENT OF BUSINESS DEVELOPMENT Spoke to pharmacist- pt still has 30 left to fill. Removing med request. Keyona Salcido RN PRESIDENT OF BUSINESS DEVELOPMENT Telephone Encounter - Day Greene RN - [...] 1 Suicidal thoughts 1 TOTAL SCORE-----> 10 PRESIDENT OF BUSINESS DEVELOPMENT Telephone Encounter - Marisa Matthew - 04/23/2014 1:10 PM CST Refill request for: CITALOPRAM 20 mg Last prescribed by provider: Date: 03/25/2014 Quantity 120 w/ 0 refills Last filled through pharmacy: Date: Pharmacy Comments: LUZ ELENA Matthew RT(R) PRESIDENT OF BUSINESS DEVELOPMENT documented in this encounter Plan of Treatment Not on filedocumented as of this encounter Visit Diagnoses Diagnosis Major depressive disorder, recurrent (H) Major depressive disorder, recurrent epi sode, unspecified documented in this encounter Care Teams Marketing Proposal Specialist Relationship Specialty Start Date End Date Selma Good APRN LOADER MALT HOUSE PCP - General 04/09/08 04/07/[address] [facility] [address] [place], [place] [address] documented as of this encounter
--- OUTSIDE RECORDS SUMMARY | 2022-02-06 10:21 | XMS_ITS | Encounter Summary ---
:1965 Author Organization [facility] Address [address] [place] [address] Care Team Providers Name Role Phone Selma Good APRN PRESS LOADER Primary Care Provider [phone] Encounter Details Date Type Department Care Team Description 08/25/2013 Orders Only [facility] Eag an Screen for colon cancer [address] [facility] [place] [address] Social History Tobacco Use Types Packs/Day [...] How often do you attend rastafari or oriental orthodox Patient refused 08/08/2019 services? [...] logist Time Signature Occult Blood Negative NEG [facility] Scn [facility] LABS Specimen Anatomical Collection Method Collection Time Receive d Time (Source) Location / / Volume Laterality Stool specimen 08/21/2013 9:00 AM 014 (specimen) CDT 10:41 AM CDT Selma Good APRN PRESS LOADER LAB - STOOLS ORDERABLES Performing Organization Address City/State/ZIP Code Phon e Number [facility] [address] [place], [place] [id number] [place] [address] LABS documented in this encounter Visit Diagnoses Diagnosis Screen for colon cancer Special screening for malignant neoplasm s, colon documented in this encounter Care Teams Bindery Technician Relationship Specialty Start Date End Date Danilo-Selma Mccoy, TOGGLER PRESS LOADER PCP - General 04/09/08 04/07/[address] [facility] [address] [address] [place], [place] [address] documented as of this encounter
--- OUTSIDE RECORDS SUMMARY | 2022-02-06 10:21 | XMS_ITS | Encounter Summary ---
:1965 Author Organization [facility] Address [address] [place] [address] Care Team Providers Name Role Phone Selma Good APRN PRODUCT SUPPORT SPECIALIST Primary Care Provider [phone] Reason for Visit Reason Comments Hospital F/U Headache would like med Pain Overall whole body pain Encounter Details Date Type Department Care Team Description 11/15/2011 Office Visit [facility] Florentino, LBP (low ba ck pain) (Primary Dx); Pino Angeles APRN Migraine; [address] PRODUCT SUPPORT SPECIALIST Cervical pain [place] [phone] [facility] [phone] [facility] DAVID [place] [id number] Social History Tobacco Use Types Packs/Day Years [...] How often do you attend anglican or alevism Patient refused 08/08/2019 services? Do [...] Cervicalgia documented in this encounter Care Teams Maxillofacial Surgeon Relationship Specialty Start Date End Date Selma Good, KIER DRIER PRODUCT SUPPORT SPECIALIST PCP - General 04/09/08 04/07/15 2313 [facility] [place] [id number] documented as of this encounter
--- OUTSIDE RECORDS SUMMARY | 2022-02-06 10:21 | XMS_ITS | Encounter Summary ---
:1965 Author Organization [facility] Address [address] [place] [address] Care Team Providers Name Role Phone Selma Good APRN PAINTER ASSISTANT Primary Care Provider [phone] Reason for Visit Reason Onset Date Comments Panel Management 07/07/2013 Encounter Details Date Type Department Care Team Description 07/07/2013 Telephone [facility] Selma Hodges Panel Management [address] [employer] [facility] J, SEAN PAINTER ASSISTANT [place] [phone] [facility] [phone] [facility] [place] [address] (Wo rk) Social [...] How often do you attend restorationist or tenriism Patient refused 08/08/2019 services? Do [...] one month if FIT not recd. ER ENGINEER Telephone Encounter - Charlotte Mark - 07/07/2013 4:54 PM CST Panel Management Review Date of last visit with a [place] provider: KATHY on 05-30-13. Date of next visit with a [place] provider: None. Problem List Patient Active Problem List Diagnosis ??? Migraine headache ??? GERD (Gastroesophageal Reflux Disease) ??? Obesity ??? Family History of CO (Myocardial Infarction) ??? Cervical Pain ??? Insomnia [...] or not fasting. Charlotte Mark CMA(AAMA) ER ENGINEER documented in this encounter Plan of Treatment Not on filedocumented as of this encounter Visit Diagnoses Diagnosis Screening for malignant neoplasm of the rectum - Primary documented in this encounter Care Teams Fiber Optics Supervisor Relationship Specialty Start Date End Date Selma Good APRN PAINTER ASSISTANT PCP - General 04/09/08 04/07/[address] [facility] [place] [id number] documented as of this encounter
--- OUTSIDE RECORDS SUMMARY | 2022-02-06 10:21 | XMS_ITS | Encounter Summary ---
:1965 Author Organization [facility] Address [address] [place] [address] Care Team Providers Name Role Phone Selma Good APRN SUPERVISOR PUBLICATIONS Primary Care Provider [phone] Reason for Visit Reason Comments UTI Recheck Medication Encounter Details Date Type Department Care Team Description 02/07/2013 Office Visit [facility] Florentino UTI (lower urinary tract infection) (Primary Dx); Pino Angeles APRN Dysuria; [address] [employer] SUPERVISOR PUBLICATIONS Nail fungus; [place] [phone] 5289 [facility] Hypertension goal BP (blood pressure) < 130/80; [phone] [facility] DAVID Gilbert [id number] Social History Tobacco Use Types Packs/Day Years [...] How often do you attend lutheran or presybeterian Patient refused 08/08/2019 services? Do [...] underwear and pantyhose every day. Published by [employer]. This content is reviewed periodically and is subject to change as new health information becomes available. The information is intended to inform and educate and is not a replacement for medical evaluation, advice, diagnosis or treatment by a healthcare professional. Developed by Edith Felix RN, [place], and [facility]. ? 2009 [facility] [facility] and/or its affiliates. All Rights Reserved. Copyright [...] Disease) ??? Obesity ??? Family History of NM (Myocardial Infarction) ??? Cervical Pain ??? Insomnia [...] Relation Age of Onset ??? Cardiovascular Mother NM age 72 ??? Cardiovascular Father NM early 40s, subsequent bipass ??? Diabetes Mother [...] underwear and pantyhose every day. Published by [employer]. This content is reviewed periodically and is subject to change as new health information becomes available. The information is intended to inform and educate and is not a replacement for medical evaluation, advice, diagnosis or treatment by a healthcare professional. Developed by Edith Felix RN, DAVID, and [employer]. ? 2009 [employer] and/or its affiliates. All Rights Reserved. Copyright ?? [employer] 2010 Selma Good NP, VP SITE [facility] .soapo documented in this encounter [...] Component Value Ref Test Analysis Performed At Table8 Range Method Time Signature Specimen Urine [facility] LAB Culture Micro 10,000 to 50,000 colonies/mL Mixed gram negative and positive jaylen [facility] Multiple species present, probable perineal contamination. MICROBIOLOGY Susceptibility testing not routinely done Micro Report FINAL 02/09/2013 [facility] Status MICROBIOLOGY Specimen Anatomical Collection Method Collection Time Receive d Time (Source) Location / / Volume Laterality Urine specimen 02/07/2013 4:40 PM 013 4:45 (specimen) CDT PM CDT Selma Good APRN SUPERVISOR PUBLICATIONS LAB - MICRO GENERAL ORD ERABLES Performing Organization Address City/State/ZIP Code Phon e Number [address] [address] [facility] [address] [place] [address] [facility] MICROBIOLOGY (ABNORMAL) Urine Microscopic (02/07/2013 3:52 PM CDT) [facility] Method Time Signature WBC Urine 5-10 (A) 0 - 2 [facility] RBC Urine 2-5 (A) 0 - 2 [facility] Squamous Few FEW /LPF [facility] Epithelial /LPF [facility] Urine LAB Bacteria Urine Few (A) NEG /HPF [facility] Mucous Urine Present (A) NEG /LPF [facility] Specimen Anatomical Collection Method Collection Time Receive d Time (Source) Location / / Volume Laterality 02/07/2013 3:52 PM 3 3:57 CDT PM CDT Selma Good APRN, CNP LAB - URINE ORDERABLES Performing Organization Address [facility]/ZIP [facility] Phon e Number [facility] [address] [place] [address] [facility] [address] [place] [address] (ABNORMAL) *UA reflex to Microscopic and Culture (02/07/2013 3:52 PM CDT) [facility] Method Time Signature Color Urine Yellow [facility] Appearance Urine Clear [facility] Glucose Urine Negative NEG mg/dL [facility] Bilirubin Urine Negative NEG [facility] Ketones Urine Negative NEG mg/dL [facility] Specific [place] 1.010 1.003 - [facility] Urine 1.035 [facility] Blood Urine Moderate (A) NEG [facility] pH Urine 7.0 5.0 - 7.0 [facility] pH [facility] Protein Albumin Negative NEG mg/dL [facility] Urine [facility] Urobilinogen 0.2 0.2 - 1.0 [facility] Urine EU/dL [facility] Nitrite Urine Negative NEG [facility] Leukocyte Trace (A) NEG [facility] Esterase Urine [facility] Source Midstream [facility] Urine [facility] Specimen Anatomical Collection Method Collection Time Receive d Time (Source) Location / / Volume Laterality Urine specimen 02/07/2013 3:52 PM 013 3:57 (specimen) CDT PM CDT Selma Good APRN, CNP LAB - URINE ORDERABLES Performing Organization Address City/State/ZIP Code Phon e Number [facility] 1440 [facility] DAVID Pringle [phone] [facility] 14[address] [facility] [place] [phone] documented in this encounter Visit Diagnoses Diagnosis UTI (lower urinary tract infection) - Pr imary Urinary tract infection, site not specif ied Dysuria Nail fungus Dermatophytosis of nail Hypertension goal BP (blood pressure) < 130/80 Unspecified essential hypertension Fibromyalgia Mylagia and myositis, unspecified documented in this encounter Care Teams Credit Administrator Relationship Specialty Start Date End Date Selma Good, EROSION CONTROL SPECIALIST SUPERVISOR PUBLICATIONS PCP - General 04/09/08 04/07/15 4305 [facility] [place] [address] documented as of this encounter
--- OUTSIDE RECORDS SUMMARY | 2022-02-06 10:21 | XMS_ITS | Encounter Summary ---
:1965 Author Organization [facility] Address [address] [place] [address] Care Team Providers Name Role Phone Selma Good APRN STORE TEAM MEMBER Primary Care Provider [phone] Encounter Details Date Type Department Care Team Description 12/06/2012 Orders Only [facility] Eag an Type 2 diabetes, HbA1C 1440 [...] How often do you attend taoism or bahai Patient refused 08/08/2019 services? Do [...] athologist Signature TSH 2.01 0.4 - 5.0 [facility] mU/L CLINIC LAB Specimen Anatomical Collection Method Collection Time Receive d Time (Source) Location / / Volume Laterality Blood specimen 12/06/2012 9:14 AM 013 9:15 (specimen) CDT AM CDT Selma Good APRN STORE TEAM MEMBER LAB - BLOOD ORDERABLES Performing Organization Address City/State/ZIP Code Phon e Number [facility] [address] [place] [phone] [facility] [address] [place] [phone] (ABNORMAL) Lipid Profile with reflex to direct LDL (12/06/2012 9:14 AM CDT) athologist Signature Cholesterol 128 0 - 200 [place] mg/dL MED CTR Comment: LDL Cholesterol is the primary guide to therapy. The NCEP recommends further evaluation of: patients with cholesterol greater than 200 mg/dL if additional risk facto rs are present, cholesterol greater than 240 mg/dL, triglycerides greater than 1 50 mg/dL, or HDL less than 40 mg/dL. Triglycerides 39 0 - 150 mg/dL [facility] Comment: Fasting specimen HDL Cholesterol 43 (L) 50 - 110 mg/dL [facility] VE MED CTR LDL Cholesterol Calculated 77 0 - 129 mg/dL [facility] Comment: LDL Cholesterol is the primary guide to therapy: LDL-cholesterol goal in high risk patients is <100 mg/dL and in very high risk patients is <70 mg/dL. VLDL-Cholesterol 8 0 - 30 mg/dL [facility] Cholesterol/HDL Ratio 3.0 0.0 - 5.[address] [facility] Specimen Anatomical Collection Method Collection Time Receive d Time (Source) Location / / Volume Laterality Blood specimen 12/06/2012 9:14 AM 013 9:15 (specimen) CDT AM CDT Selma Good APRN STORE TEAM MEMBER LAB - BLOOD ORDERABLES Performing Organization Address City/State/ZIP Code Phon e Number [facility] [address] [place] [address] [facility] [address] [place] [address] (ABNORMAL) Comprehensive metabolic panel (BMP + Alb, Alk Phos, ALT, AST, Total. Bili, TP) (12/06/2012 9:14 AM CDT) athologist Signature Sodium 143 133 - 144 [place] mmol/L [facility] Potassium 4.5 3.4 - 5.3 [place] mmol/L [facility] Chloride 108 94 - 109 [place] mmol/L [facility] Carbon Dioxide 24 20 - 32 [place] mmol/L [facility] Anion Gap 12 6 - 17 [place] mmol/L [facility] Glucose 103 (H) 60 - 99 [place] mg/dL [facility] Comment: Fasting specimen Urea Nitrogen 14 5 - 24 mg/dL [facility] Creatinine 0.59 0.52 - 1.04 mg/dL [facility] GFR Estimate >90 >60 mL/min/1.7m2 [facility] GFR Estimate If Black >90 >60 mL/min/1.7m2 [facility] Calcium 8.6 8.5 - 10.4 mg/dL [facility] Bilirubin Total 0.2 0.2 - 1.3 mg/dL [facility] Albumin 3.7 (L) 3.9 - 5.1 g/dL [facility] Protein Total 6.9 6.8 - 8.8 g/dL [facility] Alkaline Phosphatase 76 40 - 150 U/L [facility] ALT 20 0 - 50 U/L [facility] AST 17 0 - 45 U/L [facility] Specimen Anatomical Collection Method Collection Time Receive d Time (Source) Location / / Volume Laterality Blood specimen 12/06/2012 9:14 AM 06/28/2 013 9:15 (specimen) CDT AM CDT Selma Good APRN, CNP LAB - BLOOD ORDERABLES Performing Organization Address City/[facility] Phon e Number [facility] [address] [place] [address] [facility] [address] [place] [address] Hemoglobin A1c (12/06/2012 8:53 AM CDT) P athologist Signature Hemoglobin A1C 5.8 4.3 - 6.0 [facility] LAB Specimen Anatomical Collection Method Collection Time Receive d Time (Source) Location / / Volume Laterality Blood specimen 12/06/2012 8:53 AM 013 8:54 (specimen) CDT AM CDT Selma Good APRN, CNP LAB - BLOOD ORDERABLES Performing Organization Address [facility] Code Phon e Number [facility] [address] [place] [phone] [facility] [address] [place] [address] documented in this encounter Visit Diagnoses Diagnosis Type 2 diabetes, HbA1c goal < 7% (H) - P rimary Type II or unspecified type diabetes sukhdev litus without mention of complication, not stated as uncontrolled documented in this encounter Care Teams Cutter Plastics Rolls Relationship Specialty Start Date End Date Selma Good APRN CNP PCP - General 04/09/08 04/07/15 [facility]5 [facility] [place] [address] documented as of this encounter
--- OUTSIDE RECORDS SUMMARY | 2022-02-06 10:21 | XMS_ITS | Encounter Summary ---
:1965 Author Organization [facility] Address [address] [place] [address] Care Team Providers Name Role Phone Selma Good APRN [facility] Primary Care Provider [phone] Reason for Visit Reason Comments RECHECK Encounter Details Date Type Department Care Team Description 12/05/2011 Office Visit [facility] Florentino, Headaches, migraine (Primary Dx); Pino Angeles APRN Cervical pain [address] [place] [phone] [address] [facility] [phone] [facility] [place] [address] Social History [...] How often do you attend mormonism or yazdanism Patient refused 08/08/2019 services? Do [...] Cervicalgia documented in this encounter Care Teams Senior Qa Tester Relationship Specialty Start Date End Date Selma Good APRN PHYSICAL PLANT EMPLOYEE PCP - General 04/09/08 04/07/15 3306 [facility] [place] [id number] documented as of this encounter
--- OUTSIDE RECORDS SUMMARY | 2022-02-06 10:21 | XMS_ITS | Encounter Summary ---
:1965 Author Organization [facility] Address [address] [place] [address] Care Team Providers Name Role Phone Selma Good APRN SURGICAL ASSIST Primary Care Provider [phone] Reason for Visit Reason Onset Date Comments Refill Request 04/11/2014 ACCU CHEK test strp Encounter Details Date Type Department Care Team Description 04/11/2014 Refill [facility] Eag Selma Anthony Refill Request (ACCU [address] [employer] [facility] J, SEAN SURGICAL ASSIST CHEK test strp) [place] [phone] [facility] [phone] [facility] DAV[place] [phone] (Wo rk) Social History Tobacco Use Types [...] How often do you attend congregation or mu-ism Patient refused 08/08/2019 services? Do [...] per Medication Refill Protocol. Bambi Morales RN EMIC REGISTRAR Telephone Encounter - Tima Melchor - 04/11/2014 [...] uncontrolled documented in this encounter Care Teams Propulsion Engineer Relationship Specialty Start Date End Date Danilo-Selma Mccoy, PLUMBING ASSEMBLER SURGICAL ASSIST PCP - General 04/09/08 04/07/15 3305 [facility] [place] [address] documented as of this encounter
--- OUTSIDE RECORDS SUMMARY | 2022-02-06 10:21 | XMS_ITS | Encounter Summary ---
:1965 Author Organization [facility] Address [address] [place] [address] Care Team Providers Name Role Phone Selma Good APRN BELT CUTTER Primary Care Provider [phone] Reason for Visit Reason Comments Diabetes Recheck Medication Encounter Details Date Type Department Care Team Description 01/10/2012 Office Visit [facility] Florentino, Type 2 diab etes, HbA1C goal < 7% (H) (Primary Dx); Pino Angeles APRN Migraine [address] [place] [address] [facility] [phone] [facility] [place] [address] Social History Tobacco Use [...] How often do you attend muslim or episcopalian Patient refused 08/08/2019 services? Do [...] mouth daily. Histories reviewed and updated in [facility]. ROS: Complete/DM ROS - C: NEGATIVE for fatigue, unexpected change in weight EYES: positive for worsening in visual acuity; is going to see lead sql developer soon, feels that vision has been decreasing [...] Signature TSH 1.55 0.4 - 5.0 [facility] mU/L CLINIC LAB Specimen Anatomical Collection Method Collection Time Receive d Time (Source) Location / / Volume Laterality Blood specimen 01/10/2012 10:38 2 (specimen) AM CDT 10:40 AM CDT Selma Good MASTER STEAM YACHT BELT CUTTER LAB - BLOOD ORDERABLES Performing Organization Address City/State/ZIP Code Phon e Number [facility] [address] [place] [address] [facility] documented in this encounter Visit Diagnoses Diagnosis Type 2 diabetes, HbA1c goal < 7% (H) - P rimary Type II or unspecified type diabetes sukhdev litus without mention of complication, not stated as uncontrolled Migraine Migraine, unspecified, without mention o f intractable migraine without mention of status migrainosus documented in this encounter Care Teams Women'S Studies Lecturer Relationship Specialty Start Date End Date Selma Good, SEAN BELT CUTTER PCP - General 04/09/08 04/07/[address] [facility] [address] documented as of this encounter
--- OUTSIDE RECORDS SUMMARY | 2022-02-06 10:21 | XMS_ITS | Encounter Summary ---
:1965 Author Organization [facility] Address [address] [place] [address] Care Team Providers Name Role Phone Selma Good APRN LAUNDRY AIDE Primary Care Provider [phone] Reason for Visit Reason Onset Date Comments Refill Request 03/14/2013 test strips Encounter Details Date Type Department Care Team Description 03/14/2013 Refill [facility] Eag Selma Anthony Refill Request (test 1440 [employer] J, GUIDE CHANGER LAUNDRY AIDE strips) [place] [phone] [facility] [phone] [facility] DAV[place] [address] (Wo rk) Social [...] How often do you attend episcopal or latter day Patient refused 08/08/2019 services? [...] uncontrolled documented in this encounter Care Teams Compensation Business Partner Relationship Specialty Start Date End Date Danilo-Selma Mccoy, GUIDE CHANGER LAUNDRY AIDE PCP - General 04/09/08 04/07/15 4662 [facility] [place] [address] documented as of this encounter
--- OUTSIDE RECORDS SUMMARY | 2022-02-06 10:22 | XMS_ITS | Encounter Summary ---
:1965 Author Organization [place] Address [address] [place] [address] Care Team Providers Name Role Phone Selma Good APRN UNDERWRITING ASSISTANT Primary Care Provider [phone] Encounter Details Date Type Department Care Team Description 04/29/2011 Orders Only [facility] Type 2 diabetes, HbA1C 1440 [...] How often do you attend hoahaoism or gnosticist Patient refused 08/08/2019 services? Do [...] 2 diabete s, Results for this QUANTITATIVE BUSINESS TRANSFORMATION CONSULTANT HbA1C goal < 7% (H) procedur e are in the results section. LIPID REFLEX TO DIRECT Routine 04/29/2011 8:15 AM Type 2 diabe shirley, Results for this LDL PANEL BUSINESS TRANSFORMATION CONSULTANT HbA1C goal < 7% (H) procedur e are in the results section. HEMOGLOBIN A1C Routine 04/29/2011 8:15 AM Type 2 diabetes, Res ults for this BUSINESS TRANSFORMATION CONSULTANT HbA1C goal < 7% (H) procedur e are in the results section. COMPREHENSIVE Routine 04/29/2011 8:15 AM Type 2 diabetes, Resu lts for this METABOLIC PANEL BUSINESS TRANSFORMATION CONSULTANT HbA1C goal < 7% (H) proce dure are in the results section. documented in this encounter Results Microalbumin quantitative, random urine (04/29/2011 8:16 AM BUSINESS TRANSFORMATION CONSULTANT) P athologist Signature Creatinine 241 mg/dL [facility] Urine [facility] Albumin Urine 10 mg/L [facility] mg/L [facility] Albumin Urine 4.27 0 - 20 [facility] mg/g Cr mg/g Cr [facility] Specimen Anatomical Collection Method Collection Time Receive d Time (Source) Location / / Volume Laterality Urine specimen 04/29/2011 8:16 AM 011 8:17 (specimen) BUSINESS TRANSFORMATION CONSULTANT AM BUSINESS TRANSFORMATION CONSULTANT Selma Good APRN UNDERWRITING ASSISTANT LAB - URINE ORDERABLES Performing Organization Address City/State/ZIP Code Phon e Number [facility] [address] [place] [address] [facility] Comprehensive metabolic panel (BMP + Alb, Alk Phos, ALT, AST, Total. Bili, TP) (04/29/2011 8:15 AM BUSINESS TRANSFORMATION CONSULTANT) athologist Signature Sodium 142 133 - 144 [facility] mmol/L [facility] Potassium 3.9 3.4 - 5.3 [facility] mmol/L [facility] Chloride 107 94 - 109 [facility] mmol/L [facility] Carbon Dioxide 25 20 - 32 [facility] mmol/L [facility] Anion Gap 10 6 - 17 [facility] mmol/L [facility] Glucose 97 60 - 99 [facility] mg/dL [facility] Urea Nitrogen 13 5 - 24 [facility] mg/dL [facility] Creatinine 0.74 0.52 - [facility] 1.04 mg/dL [facility] GFR Estimate 84 >60 [facility] mL/min/1.7 [facility] m2 GFR Estimate If >90 >60 [facility] Black mL/min/1.7 [facility] m2 Calcium 9.3 8.5 - 10.4 [facility] mg/dL [facility] Bilirubin Total 0.7 0.2 - 1.3 [facility] mg/dL [facility] Albumin 4.1 3.9 - 5.1 [facility] g/dL [facility] Comment: Reference range changed on 02/10. Protein Total 7.5 6.8 - 8.8 g/dL [facility] Comment: As of 07, reference range reflects plasma specimen type. Alkaline Phosphatase 78 40 - 150 U/L [facility] ALT 19 0 - 50 U/L [facility] AST 21 0 - 45 U/L [facility] Specimen Anatomical Collection Method Collection Time Receive d Time (Source) Location / / Volume Laterality Blood specimen 04/29/2011 8:15 AM 011 8:17 (specimen) BUSINESS TRANSFORMATION CONSULTANT AM BUSINESS TRANSFORMATION CONSULTANT Selma Good APRN UNDERWRITING ASSISTANT LAB - BLOOD ORDERABLES Performing Organization Address City/[facility]/ZIP Code Phon e Number [facility] [address] [place] [address] [phone] [facility] (ABNORMAL) Lipid Profile with reflex to direct LDL (04/29/2011 8:15 AM BUSINESS TRANSFORMATION CONSULTANT) athologist Signature Cholesterol 123 0 - 200 [facility] mg/dL [facility] Comment: LDL Cholesterol is the primary guide to therapy. The NCEP recommends further evaluation of: patients with cholesterol greater than 200 mg/dL if additional risk facto rs are present, cholesterol greater than 240 mg/dL, triglycerides greater than 1 50 mg/dL, or HDL less than 40 mg/dL. Triglycerides 63 0 - 150 mg/dL [facility] HDL Cholesterol 40 (L) 50 - 110 mg/dL [facility] LDL Cholesterol Calculated 70 0 - 129 mg/dL [facility] Comment: LDL Cholesterol is the primary guide to therapy: LDL-cholesterol goal in high risk patients is <100 mg/dL and in very high risk patients is <70 mg/dL. VLDL-Cholesterol 13 0 - 30 mg/dL [facility] Cholesterol/HDL Ratio 3.1 0.0 - 5.0 [facility] Specimen Anatomical Collection Method Collection Time Receive d Time (Source) Location / / Volume Laterality Blood specimen 04/29/2011 8:15 AM 011 8:17 (specimen) BUSINESS TRANSFORMATION CONSULTANT AM BUSINESS TRANSFORMATION CONSULTANT Selma Good APRN, CNP LAB - BLOOD ORDERABLES Performing Organization Address City/[facility]/ZIP Code Phon e Number [facility] [address] [place] [address] [phone] [facility] Hemoglobin A1c (04/29/2011 8:15 AM BUSINESS TRANSFORMATION CONSULTANT) athologist Signature Hemoglobin A1C 5.6 4.3 - 6.0 [facility] % [facility]INIC [facility] Specimen Anatomical Collection Method Collection Time Receive d Time (Source) Location / / Volume Laterality Blood specimen 04/29/2011 8:15 AM 011 8:17 (specimen) BUSINESS TRANSFORMATION CONSULTANT AM BUSINESS TRANSFORMATION CONSULTANT Selma Good APRN, CNP LAB - BLOOD ORDERABLES Performing Organization Address City/State/ZIP Code Phon e Number [facility] [address] [facility] [place] [phone] [facility] documented in this encounter Visit Diagnoses Diagnosis Type 2 diabetes, HbA1c goal < 7% (H) Type II or unspecified type diabetes sukhdev litus without mention of complication, not stated as uncontrolled documented in this encounter Care Teams Profile Trimmer Relationship Specialty Start Date End Date Selma Good APRN CNP PCP - General 04/09/08 04/07/15 [address] [facility] [place] [id number] documented as of this encounter
--- OUTSIDE RECORDS SUMMARY | 2022-02-06 10:22 | XMS_ITS | Encounter Summary ---
:1965 Author Organization [place] Address [address] [place] [address] Care Team Providers Name Role Phone Selma Good APRN BROADCAST TECHNICIAN Primary Care Provider [phone] Reason for Visit [facility] Physical Therapy (Routine) - Closed Specialty Diagnoses / Procedures Referred By Contact Refer red To Contact Rayo Whitehead, MARÍA [facility] [address] [place] [address] Referral ID Status Reason Start Date Expiration Date Visits Requ ested Visits Authorized HP - FOOT Closed 01/03/2010 06/10/2010 12 10 Encounter Details Date Type Department Care Team Description 02/02/2010 Therapy Visit [place] for [facility] Athletic Medicine - Sal Gonzales Enthesopathies (Primary [place] Physical [address] Dx) Therapy [place] [address] [place] [address] [place] [address] [phone] Social History Tobacco Use Types Packs/Day Years [...] How often do you attend adventist or jehovah's witness Patient refused 08/08/2019 services? Do you belong to any clubs or organizations such as No 08/08/2019 adventist groups, Naroomis, fraXoomsys or athletic groups, or school groups? How [...] y documented in this encounter Care Teams Inspector And Tester Relationship Specialty Start Date End Date Selma Good, FISCAL SERVICES DIRECTOR BROADCAST TECHNICIAN PCP - General 04/09/08 04/07/[address] [facility] [address] [place], [place] [address] documented as of this encounter
--- OUTSIDE RECORDS SUMMARY | 2022-02-06 10:22 | XMS_ITS | Encounter Summary ---
:1965 Author Organization [place] Address [address] [place] [address]. [place] [address] Care Team Providers Name Role Phone Selma Good APRN SOCIAL WORK MANAGER Primary Care Provider Encounter Details Date Type Department Care Team Description 07/16/2010 Historic Results [facility] Kylah Howard, [address] [place] [address] [address] [place], [place] [address] NEUROLOGY [phone] [address] [facility] ROS[place] 100 [place], [place] [address] (Wo rk) Social History [...] often do you attend roman catholic or hoahaoism Patient refused 08/08/2019 services? Do [...] 07/16/2010 11:00 AM Res ults for this PLANING MACHINE OPERATOR procedure are i n the results section. documented in this encounter Results (ABNORMAL) Electrolyte panel (07/16/2010 11:00 AM PLANING MACHINE OPERATOR) P athologist Signature Sodium 145 (H) 133 - 144 [facility] mmol/L Potassium 4.0 3.4 - 5.3 [facility] mmol/L Chloride 108 94 - 109 [facility] mmol/L Carbon Dioxide 28 20 - 32 [facility] mmol/L Anion Gap 9 6 - 17 [facility] mmol/L Specimen Anatomical Collection Method Collection Time Receive d Time (Source) Location / / Volume Laterality 07/16/2010 11:00 07/16/2010 AM PLANING MACHINE OPERATOR 10:57 AM PLANING MACHINE OPERATOR Kylah Howard MD LAB - BLOOD ORDERABLES Performing Organization Address City/State/ZIP Code Phon e Number [facility] documented in this encounter Visit Diagnoses Not on filedocumented in this encounter Care Teams Backer Up Relationship Specialty Start Date End Date Selma Good APRN SOCIAL WORK MANAGER PCP - General 04/09/08 04/07/15 [address] [facility] [place] [address] documented as of this encounter
--- OUTSIDE RECORDS SUMMARY | 2022-02-06 10:22 | XMS_ITS | Encounter Summary ---
:1965 Author Organization [place] Address [address] [place] [address] Care Team Providers Name Role Phone Selma Good APRN ENVIRONMENTAL ENGINEER SCIENTIST Primary Care Provider [phone] Reason for Visit [facility] Physical Therapy (Routine) - Closed Specialty Diagnoses / Procedures Referred By Contact Refer red To Contact Rayo Whitehead, MARÍA [facility] [address] [facility] E MED Yey[address] [place] [address] Referral ID Status Reason Start Date Expiration Date Visits Requ ested Visits Authorized HP - FOOT Closed 01/03/2010 06/10/2010 12 10 Encounter Details Date Type Department Care Team Description 01/25/2010 Therapy Visit [place] for Graciela Dupree, PT Other Peripheral Athletic Medicine - [address] Enthesopathies (Primary Pand[place] Physical [place] [address] Dx) Therapy [phone] [address] (Work) [place] [address] Social History Tobacco Use Types Packs/Day Years [...] organizations such as No 08/08/2019 voodoo groups, [employer], fraCipherOptics or athletic groups, or school groups? How [...] readiness to progress to higher level exercises. STRUCTURAL STEEL IRONWORKER/ATC plan: N/A Please refer to the daily [...] y documented in this encounter Care Teams Mud Jack Nozzleman Relationship Specialty Start Date End Date Danilo-Selma Mccoy, UPHOLSTERY MECHANIC ENVIRONMENTAL ENGINEER SCIENTIST PCP - General 04/09/08 04/07/15 [address] [facility] [place] [address] documented as of this encounter
--- OUTSIDE RECORDS SUMMARY | 2022-02-06 10:22 | XMS_ITS | Encounter Summary ---
:1965 Author Organization [place] Address [address] [place] [address] Care Team Providers Name Role Phone Selma Good APRN [facility] Primary Care Provider Reason for Referral - Closed Specialty Diagnoses / Procedures Referred By Contact Refer red To Contact Diagnoses Back pain Selma Good APRN [facility] [address] [facility] [address] [place] [address] Referral ID Status Reason Start Date Expiration Date Visits Requ ested Visits Authorized [id number] Closed 04/08/2010 04/08/2010 1 1 Reason for Visit Reason Comments RECHECK Pt is here today to review l ab results. Also she would like to discuss some of the medications (Metformi n) she is currently taking. Encounter Details Date Type Department Care Team Description 04/08/2010 Office Visit [facility] Florentino, Migraine he adaches; Pino Angeles APRN Type 2 diabetes, HbA1C goal < 7% (H); [facility] Hyperlipidemia LDL goal <100; [place] [phone] [address] [facility] Hypertension goal BP (blood pressure) < 130/80; [phone] NASIR ANDRE Back pain; [place] [address] Need for prophylactic vaccination and in oculation [...] How often do you attend nondenominational or anabaptist Patient refused 08/08/2019 services? Do [...] Body Mass Index 35.49 07/12/2009 4:06 PM DIMENSION SPECIFICATION INSPECTOR documented in this encounter Patient Instructions [...] Expect a phone call to schedule with [facility] to discuss back pain. Schedule Mammogram: [facility] Radiology at documented in this encounter Progress [...] OR TABS Histories reviewed and updated in [facility]. REVIEW OF SYSTEMS: C: NEGATIVE for [...] tablet 724.5E Back pain Comment: Plan: ORTHO PAIN MANAGEMENT NURSE REFERRAL V04.81 Need for prophylactic vaccination and [...] Expect a phone call to schedule with [facility] to discuss back pain. Schedule Mammogram: [facility] Radiology at documented in this encounter Nursing [...] Priority Date/Time Associated Diagnosis Comme nts ORTHOPEDIC PAIN MANAGEMENT NURSE Routine 09/20/2010 Back pain Results for this REFERRAL procedure are i n the results section . documented in this encounter Results ORTHO PAIN MANAGEMENT NURSE REFERRAL (09/20/2010) Brendas Yoly Blackwell - 09/20/2010 Dates & times dont work for her right now, she has no PTO time left. She will call back and make an jairo ointment next year Narrative This result has an attachment that is no t available. Selma Good APRN FINANCIAL ADVISER REFERRAL documented in this encounter Visit Diagnoses [...] influenza documented in this encounter Care Teams Hospital Medicine Director Relationship Specialty Start Date End Date Selma Good APRN FINANCIAL ADVISER PCP - General 04/09/08 04/07/15 [address] [facility] [place] [address] documented as of this encounter
--- OUTSIDE RECORDS SUMMARY | 2022-02-06 10:22 | XMS_ITS | Encounter Summary ---
:1965 Author Organization [place] Address [address] [place] [address] Care Team Providers Name Role Phone Selma Good APRN SHIP/REC/DOC CONTROL Primary Care Provider [phone] Reason for Visit [facility] Physical Therapy (Routine) - Closed Specialty Diagnoses / Procedures Referred By Contact Refer red To Contact Rayo Whitehead, MARÍA [facility] [address] [place] [address] Referral ID Status Reason Start Date Expiration Date Visits Requ ested Visits Authorized HP - FOOT Closed 01/03/2010 06/10/2010 12 10 Encounter Details Date Type Department Care Team Description 01/31/2010 Therapy Visit [place] for [facility] Athletic Medicine - Sal Gonzales Enthesopathies (Primary [place] Physical [address] Dx) Therapy [place] [address] [place] [address] [place] [address] [phone] Social History Tobacco Use Types Packs/Day Years [...] How often do you attend adventism or yarsani Patient refused 08/08/2019 services? Do you belong to any clubs or organizations such as No 08/08/2019 adventism groups, GenJu[employer], fraSungevity or athletic groups, or school groups? How [...] y documented in this encounter Care Teams Creative Services Designer Relationship Specialty Start Date End Date Selma Good, PHOTOCOPY OPERATOR SHIP/REC/DOC CONTROL PCP - General 04/09/08 04/07/15 [address] [facility] [place] [id number] documented as of this encounter
--- OUTSIDE RECORDS SUMMARY | 2022-02-06 10:22 | XMS_ITS | Encounter Summary ---
:1965 Author Organization [place] Address [address] [place] [address] Care Team Providers Name Role Phone Selma Angelo APRN [facility] Primary Care Provider Reason for Referral Referral not Required - Closed Specialty Diagnoses / Procedures Referred By Contact Refer red To Contact Diagnoses Upper back pain Selma Angelo, [facility] CARD GRINDER HELPER [facility] MED [address] [place] [address] ADMIN OFFICE [place] [address] [place] [address] Phone: [phone] Referral ID Status Reason Start Date Expiration Date Visits Requ ested Visits Authorized [id number] Closed 05/05/2011 11/01/2011 1 1 ER STICKER Reason for Visit Reason Comments Physical Needs refill on medications but has enough until mid May Previsit Encounter Details Date Type Department Care Team Description 05/05/2011 Office Visit [facility] Lilo Angelo gen eral medical examination at a health care facility (Primary Dx); Pino Angeles APRN Hypertension goal BP (blood pressure) < 130/80; 1440 [facility] Type 2 diabetes, HbA1C goal < 7% (H); [place] [phone] [facility]5 [facility] Hyperlipidemia LDL goal <100 ; [phone] [facility] Migraine headache; [place] [address] GERD (gastroesophageal reflux disease); [phone] Vaginal atrophy ; (Work) Cervical pain; [phone] Upper back pain ; (Fax) Seasonal allerg [...] How often do you attend protestant or jewish Patient refused 08/08/2019 services? Do [...] Comments Blood Pressure 98/56 05/05/2011 8:38 AM LUMBER STICKER Pulse 72 05/05/2011 8:38 AM LUMBER STICKER Temperature - - Respiratory Rate - - Oxygen Saturation - - Inhaled Oxygen Concentration - - Weight 73.5 kg (162 lb) 05/05/2011 8:38 AM LUMBER STICKER Height - - Body Mass Index 29.63 08/26/2010 2:29 PM CDT documented in this encounter Patient Instructions Patient InstructionsDanilo-Selma Mccoy NP - 05/05/2011 7:57 AM LUMBER STICKER Return to clinic in 6 months (november) [...] a year for an exam and cleaning. ER STICKER documented in this encounter Progress Notes Selma Agnelo NP - 05/05/2011 7:57 AM CST CC: [...] pain. Neck pain: She did go to [facility], which is controlled with gabapentin without relief of pain. She would like to come off this. The pain is stable and he would opt to not do any intervention at this ttime. L hip/back pain: Stable, but moderate. She does have a hx of SI joint fusion surgery, but [facility] said it looks as if it [...] Maintenance. All Histories reviewed and updated in [facility]. ROS: C: NEGATIVE for fever, chills, [...] a year for an exam and cleaning. ER STICKER documented in this encounter Plan of Treatment Scheduled Referrals Name Type Priority Associated Diagnoses Order S katya BARRIGA PT, HAND, AND Referral Routine Upper back pain Ordered : 05/05/2011 CHIROPRACTIC REFERRAL documented as of this encounter Procedures Procedure Name Priority Date/Time Associated Diagnosis Comme nts PAP IMAGED THIN Routine 05/05/2011 8:39 AM Routine general Res ults for this LAYER SCREEN LUMBER STICKER medical examination procedur e are in at a health care the results facility section. WET PREPARATION Routine 05/05/2011 8:39 AM Vaginal atrophy Res ults for this LUMBER STICKER procedure are i n the results section. documented in this encounter Results Wet prep (05/05/2011 8:39 AM LUMBER STICKER) [facility] Method Time Signature Specimen Vagina [place] Description [facility] Wet Prep No yeast seen [place] No clue cells seen [facility] No Trichomonas seen LAB Micro Report FINAL [place] Status 05/05/2011 [facility] Specimen Anatomical Collection Method Collection Time Receive d Time (Source) Location / / Volume Laterality 05/05/2011 8:39 AM 1 8:42 LUMBER STICKER AM LUMBER STICKER Selma Angelo CARD GRINDER HELPER CHEMICAL RECLAMATION EQUIPMENT OPERATOR LAB - MICRO GENERAL ORD ERABLES Performing Organization Address City/State/ZIP Code Phon e Number [facility] [address] [place] [address] [facility] PAP IMAGED THIN LAYER SCREEN (05/05/2011 8:39 AM LUMBER STICKER) Component Value Ref Test Analysis Performed At [facility] Range Method Time Signature PAP NIL COPATH Copath Report COPATH Patient Name: MEGAN CHOI MR#: [id number] Specimen #: [id number] Collected: 05/05/2011 Received: 05/08/2011 Reported: 05/09/2011 14:02 [...] TARIQ Mohamud(ASCP) Processed and screened at [facility] rick [facility] CLINICAL HISTORY: LMP: 04/09/2011 Previous Other-NIL EM>40 Date of Last Pap: 04/13/2008, Papanicolaou Test Limitations: ??Cervical cytology is a scre ening test with limited sensitivity; regular screening is critical for cancer prevention; Pap tests are primarily effective for the diagnosis/prevention of squamous cell carcinoma, not adenoca rcinomas or other cancers. TESTING LAB LOCATION: [facility] [address] [place], [place] ??[id number] COLLECTION SITE: Client: ??[facility] Location: [facility] (R) Specimen (Source) Anatomical Collection Method Collection Time Re ceived Time Location / / Volume Laterality Cytologic 05/05/2011 8:39 05/08/2011 material AM LUMBER STICKER 10:11 AM LUMBER STICKER (specimen) Selma Angelo APRN, CNP LAB - [...] unspecified documented in this encounter Care Teams Hospital Corpsman Relationship Specialty Start Date End Date Selma Angelo APRN CNP PCP - General 04/09/08 04/07/15 [address] [facility] [place] [address] documented as of this encounter
--- OUTSIDE RECORDS SUMMARY | 2022-02-06 10:22 | XMS_ITS | Encounter Summary ---
:1965 Author Organization [place] Address [address] [place] [address] Care Team Providers Name Role Phone Selma Good APRN KNOTTER Primary Care Provider [phone] Reason for Visit Reason Comments RECHECK cellulitis on left leg,state s doesnt notice any difference,c/o pain,dryness and burning sen sation Letter for School/Work Encounter Details Date Type Department Care Team Description 08/29/2010 Office Visit [facility] Vanda Guerrero Cellulit is of leg Pino Toribio MD (Primary Dx) [address] [place] [address] [facility] [phone] [place] [address] (Wo rk) Social History [...] How often do you attend mandaen or catholic Patient refused 08/08/2019 services? Do [...] ??? Obesity 278.00J ??? Family History of [place] (Myocardial Infarction) V17.3Y ??? Cervical Pain 723.1L [...] 08/29/2010 2:15 PM CDT >> ADALBERTO FULTON [facility] Aug 29, 2010 2:20 PM Patient [...] ot documented in this encounter Care Teams Trade Sales Assistant Relationship Specialty Start Date End Date Selma Good, METALLURGICAL ENGINEERING TECHNICIAN KNOTTER PCP - General 04/09/08 04/07/[address] [facility] [facility] [address] [place], [place] [address] documented as of this encounter
--- OUTSIDE RECORDS SUMMARY | 2022-02-06 10:22 | XMS_ITS | Encounter Summary ---
:1965 Author Organization [place] Address [address] [place] [address]. [place] [address] Care Team Providers Name Role Phone Selma Good APRN RETAIL AND RESTAURANT Primary Care Provider [phone] Encounter Details Date Type Department Care Team Description 03/11/2010 Outpatient Visit [facility] Ricardo Sot[facility] PA-C Results [address] [facility] [address] [place] [address] (Wo rk) Social History Tobacco Use Types [...] How often do you attend druze or christian Patient refused 08/08/2019 services? Do [...] of nocturnal enuresis as a child. Megan [place] Sleepiness Score is 12/24 consistent with mild [...] allowed in her bed. 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 She denies having ever smoked cigarettes. Denies [...] 1. Polysomnogram split night with titration at [facility]. Pathophysiology, risk factors, and implications [...] pamphlet on sleep hygiene produced by the [employer] and was encouraged [...] and coordination of care. Part two job #[id number] p.m. a.m. mary kate Electronically signed on 03/18/2010 12:44 by RICARDO SOTELO PA-C MT: mary kate Name: MEGAN CHOI Account: [id number] : 1965 Visit Date: 03/11/2010 Document: [id number] cc: Selma Good HUMAN RESOURCE ADVISER documented in this encounter Plan of Treatment Not on filedocumented as of this encounter Visit Diagnoses Not on filedocumented in this encounter Care Teams Lan/Wan Engineer Relationship Specialty Start Date End Date Selma Good, SEAN RETAIL AND RESTAURANT PCP - General 04/09/08 04/07/15 [address] [facility] [place] [address] documented as of this encounter
--- OUTSIDE RECORDS SUMMARY | 2022-02-06 10:22 | XMS_ITS | Encounter Summary ---
:1965 Author Organization [place] Address [address] [place] [address] Care Team Providers Name Role Phone Selma Good APRN CELLOPHANE WRAPPING EXAMINER Primary Care Provider [phone] Reason for Visit Reason Comments RECHECK Pt is here for a f/u visit f or diabetes Encounter Details Date Type Department Care Team Description 02/15/2010 Office Visit [facility] Florentino, Type 2 Diab etes, HbA1c Goal < 7% (H) (Primary Dx); [place] Angeles APRN Hyperlipidemia LDL Goal <100 ; [address] [facility] Hypertension Goal BP (Blood Pressure) < 130/80 [place] [id number] [facility] [phone] [facility] [place] [id number] Social History Tobacco Use Types Packs/Day Years [...] How often do you attend congregational or taoism Patient refused 08/08/2019 services? Do [...] Body Mass Index 36.76 07/12/2009 4:06 PM PATROL JUDGE documented in this encounter Patient Instructions Patient [...] OR TABS Histories reviewed and updated in [facility]. Shayy Ramos MA REVIEW OF SYSTEMS: C: [...] hypertension documented in this encounter Care Teams Main Line Station Engineer Relationship Specialty Start Date End Date Selma Good, DAUB COLOR MIXER CELLOPHANE WRAPPING EXAMINER PCP - General 04/09/08 04/07/[address] [facility] [address] [facility] [address] [place], [place] [address] documented as of this encounter
--- OUTSIDE RECORDS SUMMARY | 2022-02-06 10:22 | XMS_ITS | Encounter Summary ---
:1965 Author Organization [place] Address [address] [place] [address] Care Team Providers Name Role Phone Selma Good APRN ENGINEER TECHNICIAN Primary Care Provider [phone] Encounter Details Date Type Department Care Team Description 08/03/2010 Orders Only [facility] Eag an Type 2 diabetes, HbA1C 1440 [...] How often do you attend latter-day or protestant Patient refused 08/08/2019 services? Do [...] Type 2 diabetes, Res ults for this SUPERVISOR MAPPING HbA1C goal < 7% (H) procedur e are in the results section . documented in this encounter Results Hemoglobin A1c (08/03/2010 9:25 AM SUPERVISOR MAPPING) athologist Signature Hemoglobin A1C 6.0 4.3 - 6.0 [facility] Specimen Anatomical Collection Method Collection Time Receive d Time (Source) Location / / Volume Laterality Blood specimen 08/03/2010 9:25 AM 011 9:30 (specimen) SUPERVISOR MAPPING AM SUPERVISOR MAPPING Selma Good APRN ENGINEER TECHNICIAN LAB - BLOOD ORDERABLES Performing Organization Address City/State/ZIP Code Phon e Number [facility] [address] [place] [address] [facility] documented in this encounter Visit Diagnoses Diagnosis Type 2 diabetes, HbA1c goal < 7% (H) - P rimary Type II or unspecified type diabetes sukhdev litus without mention of complication, not stated as uncontrolled documented in this encounter Care Teams Swing Frame Grinder Operator Relationship Specialty Start Date End Date Selma Good APRN ENGINEER TECHNICIAN PCP - General 04/09/08 04/07/[address] [place] [address] documented as of this encounter
--- OUTSIDE RECORDS SUMMARY | 2022-02-06 10:22 | XMS_ITS | Encounter Summary ---
:1965 Author Organization [place] Address [address] [place] [address] Care Team Providers Name Role Phone Selma Bullard BROKERAGE COORDINATOR CALL WORKER PERSON Primary Care Provider Reason for Visit Reason Onset Date Comments Cellulitis 08/29/2010 Encounter Details Date Type Department Care Team Description 08/29/2010 Telephone [facility] Eag Selma Anthony, Cellulitis [address] [facility] BROKERAGE COORDINATOR CALL WORKER PERSON [place] [phone] [address] [facility] [phone] [facility] [place] [address] [...] How often do you attend rastafarian or adventist Patient refused 08/08/2019 services? Do [...] on filedocumented in this encounter Care Teams Cafeteria Associate Relationship Specialty Start Date End Date Selma Bullard, BROKERAGE COORDINATOR CALL WORKER PERSON PCP - General 04/09/08 04/07/[address] [place] [address] documented as of this encounter
--- OUTSIDE RECORDS SUMMARY | 2022-02-06 10:22 | XMS_ITS | Encounter Summary ---
:1965 Author Organization [place] Address [address] [place] [address] Care Team Providers Name Role Phone Selma Good APRN INSECT CONTROL AIDE Primary Care Provider [phone] Reason for Visit [facility] Physical Therapy (Routine) - Closed Specialty Diagnoses / Procedures Referred By Contact Refer red To Contact Rayo Whitehead, MARÍA [facility] [address] [facility] [address] [place] [address] Referral ID Status Reason Start Date Expiration Date Visits Requ ested Visits Authorized HP - FOOT Closed 01/03/2010 06/10/2010 12 10 Encounter Details Date Type Department Care Team Description 01/20/2010 Therapy Visit [place] for Janice Dc, PT Other Peripheral Athletic Medicine - [address] Enthesopathies (Primary [place] [facility] [place] [address] Dx) Therapy [phone] [address] (Work) [place] [id number] Social History Tobacco Use Types Packs/Day Years [...] How often do you attend scientologist or faith Patient refused 08/08/2019 services? Do you belong to any clubs or organizations such as No 08/08/2019 scientologist groups, [employer], fraWork[employer]y or athletic groups, or school groups? How [...] Diagnosis Comme [facility] Z ELECTRIC CURRENT Routine 01/20/2010 5:14 PM Other Peripher al THERAPY CDT Enthesopathies documented in this encounter Visit Diagnoses Diagnosis Other peripheral enthesopathies - Primar y documented in this encounter Care Teams Mmi Teacher Relationship Specialty Start Date End Date Selma Good, SEAN INSECT CONTROL AIDE PCP - General 04/09/08 04/07/[address] [place] [place] [address] documented as of this encounter
--- OUTSIDE RECORDS SUMMARY | 2022-02-06 10:22 | XMS_ITS | Encounter Summary ---
:1965 Author Organization [place] Address [address] [place] [address] Care Team Providers Name Role Phone Selma Good APRN MUSICAL STRING MAKER Primary Care Provider [phone] Reason for Visit Reason Comments Ultrasound Encounter Details Date Type Department Care Team Description 10/27/[address] [facility] norrhagia (Primary Dx) Clinic [place] [address] [place] [address] Social History Tobacco Use [...] How often do you attend christian or congregational Patient refused 08/08/2019 services? Do [...] ??Normal study. Christy Ibarra M.D. Narrative 10/27/2011 [facility] [address] [facility] [place] [address] ULTRASOUND - PELVIC GOLF STUD RIVETER Referring MD: Diego Nelson MD Primary Clinic: [facility] Ultrasound disk#: [id number] CLINICAL INFORMATION Indications for ultrasound: Bleeding/Menses - [...] menstruation documented in this encounter Care Teams Brim Stretcher Relationship Specialty Start Date End Date Selma Good APRN MUSICAL STRING MAKER PCP - General 04/09/08 04/07/[address] [facility] [place] [address] documented as of this encounter
--- OUTSIDE RECORDS SUMMARY | 2022-02-06 10:22 | XMS_ITS | Encounter Summary ---
:1965 Author Organization [place] Address [address] [place] [address] Care Team Providers Name Role Phone Selma Good APRN GAS APPLIANCE SERVICER Primary Care Provider Reason for Visit [facility] Physical Therapy (Routine) - Closed Specialty Diagnoses / Procedures Referred By Contact Refer red To Contact Rayo Whitehead, MARÍA [facility] [address] [place] [address] Referral ID Status Reason Start Date Expiration Date Visits Requ ested Visits Authorized HP - FOOT Closed 01/03/2010 06/10/2010 12 10 Encounter Details Date Type Department Care Team Description 02/07/2010 Therapy Visit [place] for [facility] Athletic Medicine - Sal Gonzales Enthesopathies (Primary [place] [facility] [address] Dx) Therapy [address] [place] [address] [place] [address] [phone] Social History Tobacco Use Types Packs/Day Years [...] How often do you attend samaritan or baptist Patient refused 08/08/2019 services? Do you belong to any clubs or organizations such as No 08/08/2019 samaritan groups, [employer], fraBringg or athletic groups, or school groups? How [...] documented as of this encounter Progress Notes Jante Payne - 02/23/2010 3:21 PM CDT Addended [...] 5:44 PM Other Peripheral EXERCISES CDT Enthesopathies [facility] ELECTRIC CURRENT Routine 02/07/2010 5:44 PM Other Peripher al THERAPY CDT Enthesopathies documented in this encounter Visit Diagnoses Diagnosis Other peripheral enthesopathies - Primar y documented in this encounter Care Teams Wood And Hardware Outfitter Relationship Specialty Start Date End Date Selma Good, PARTS ADVISOR GAS APPLIANCE SERVICER PCP - General 04/09/08 04/07/[address] [facility] [address] [place], [place] [address] documented as of this encounter
--- OUTSIDE RECORDS SUMMARY | 2022-02-06 10:22 | XMS_ITS | Encounter Summary ---
:1965 Author Organization [place] Address [address] [place] [address] Care Team Providers Name Role Phone Selma Good APRN PRIMARY SPECIAL EDUCATOR Primary Care Provider [phone] Reason for Visit [facility] Physical Therapy (Routine) - Closed Specialty Diagnoses / Procedures Referred By Contact Refer red To Contact Rayo Whitehead, MARÍA [facility] [address] [facility] [address] [place] [address] Referral ID Status Reason Start Date Expiration Date Visits Requ ested Visits Authorized HP - FOOT Closed 01/03/2010 06/10/2010 12 10 Encounter Details Date Type Department Care Team Description 01/18/2010 Therapy Visit [place] for Graciela Dupree, PT Other Peripheral Athletic Medicine - [address] Enthesopathies (Primary [place] Physical [place] [address] Dx) Therapy [phone] [address] (Work) [place] [address] Social History Tobacco Use Types Packs/Day Years [...] How often do you attend confucianism or church Patient refused 08/08/2019 services? Do you belong to any clubs or organizations such as No 08/08/2019 confucianism groups, [employer], fraThe University of North [employer] at Chapel Hill or athletic groups, or school groups? How [...] y documented in this encounter Care Teams Production Tech Relationship Specialty Start Date End Date Selma Good, ASSISTANT PROFESSOR OF FORESTRY PRIMARY SPECIAL EDUCATOR PCP - General 04/09/08 04/07/15 [address] [facility] [address] [place], [place] [address] documented as of this encounter
--- OUTSIDE RECORDS SUMMARY | 2022-02-06 10:22 | XMS_ITS | Encounter Summary ---
:1965 Author Organization [place] Address [address] [place] [address] Care Team Providers Name Role Phone Selma Good APRN STATION INSTALLER Primary Care Provider [phone] Encounter Details Date Type Department Care Team Description 04/02/2010 Orders Only [facility] Eag an Type 2 diabetes, HbA1C goal < 7% (H); [address] Hyperlipidemia LDL goal <100 ; [place] [phone] Hypertension goal BP (blood pressure) < 130/80; [phone] Unspecified epi lepsy without mention of intractable [...] How often do you attend pentecostal or anabaptist Patient refused 08/08/2019 services? Do [...] CDT) P athologist Signature Creatinine 207 mg/dL [facility] Urine [facility] Albumin Urine 11 mg/L [facility] mg/L [place] [facility] Albumin Urine 5.31 0 - 20 [facility] mg/g Cr mg/g Cr [facility] Specimen Anatomical Collection Method Collection Time Receive d Time (Source) Location / / Volume Laterality Urine specimen 04/02/2010 8:36 AM 010 8:41 (specimen) CDT AM CDT Selma Good APRN STATION INSTALLER LAB - URINE ORDERABLES Performing Organization Address City/State/ZIP Code Phon e Number [facility] [address] [place] [address] [facility] (ABNORMAL) Vitamin D deficiency screening (04/02/2010 8:36 AM CDT) Component Value Ref Test Analysis Performed At Patholo gist Range Method Time Signature 25 [place] Vit D2 <5 ug/L [facility] 25 [place] Vit D3 25 ug/L [facility] 25 [place] Vit D <30 30 - 75 [facility] total Season, race, dietary intake, and treatm ent affect the concentration of ug/L [place] [id number] D. Values may decrease during gordon er [...] Phon e Number [facility] [address] [place] [address] [facility] (ABNORMAL) Comprehensive metabolic panel (04/02/2010 8:16 AM CDT) P athologist Signature Sodium 143 133 - 144 [place] mmol/L [facility] Potassium 4.3 3.4 - 5.3 [place] mmol/L [facility] Chloride 105 94 - 109 [place] mmol/L [facility] Carbon Dioxide 27 20 - 32 [place] mmol/L [facility] Anion Gap 10 6 - 17 [place] mmol/L [facility] Glucose 134 (H) 60 - 99 [place] mg/dL [facility] Urea Nitrogen 10 5 - 24 [place] mg/dL [facility] Creatinine 0.74 0.52 - [place] 1.04 mg/dL [facility] Comment: New IDMS-traceable calibration beginning 10/10/07 GFR Estimate 84 >60 mL/min/1.7m2 [facility] GFR Estimate If Black >90 >60 mL/min/1.7m2 [facility] Calcium 9.2 8.5 - 10.4 mg/dL [facility] Bilirubin Total 0.5 0.2 - 1.3 mg/dL [facility] Albumin 4.1 3.9 - 5.1 g/dL [facility] Comment: Reference range changed on 02/10. Protein Total 7.2 6.8 - 8.8 g/dL [facility] Comment: As of 07, reference range reflects plasma specimen type. Alkaline Phosphatase 119 40 - 150 U/L [facility] ALT 22 0 - 50 U/L [facility] LAB AST 20 0 - 45 U/L [facility] LAB Specimen Anatomical Collection Method Collection Time Receive d Time (Source) Location / / Volume Laterality Blood specimen 04/02/2010 8:16 AM 010 8:21 (specimen) CDT AM CDT Selma Good APRN STATION INSTALLER LAB - BLOOD ORDERABLES Performing Organization Address City/State/ZIP Code Phon e Number [facility] [address] [place] [address] [facility] (ABNORMAL) Lipid panel reflex to direct LDL (04/02/2010 8:16 AM CDT) athologist Signature Cholesterol 130 0 - 200 [facility] mg/dL CLINIC LAB Comment: LDL Cholesterol is the primary guide to therapy. The NCEP recommends further evaluation of: patients with cholesterol <200 mg/dL if additional risk factors are present, cholesterol >240 mg/dL, triglycerides >150 mg/dL, or HDL <40 mg/dL. Triglycerides 74 0 - 150 mg/dL [facility] HDL Cholesterol 37 (L) 50 - 110 mg/dL [facility] LDL Cholesterol Calculated 78 0 - 129 mg/dL [facility] Comment: LDL Cholesterol is the primary guide to therapy: LDL-cholesterol goal in high risk patients is <100 mg/dL and in very high risk patients is <70 mg/dL. VLDL-Cholesterol 15 0 - 30 mg/dL [facility] Cholesterol/HDL Ratio 3.5 0.0 - 5.0 [facility] Specimen Anatomical Collection Method Collection Time Receive d Time (Source) Location / / Volume Laterality Blood specimen 04/02/2010 8:16 AM 8:21 (specimen) CDT AM CDT Selma Good APRN, CNP LAB - BLOOD ORDERABLES Performing Organization Address City/[facility]/ZIP Code Phon e Number [facility] [address] [place] [address] [phone] [facility] (ABNORMAL) Hemoglobin A1c (04/02/2010 8:16 AM CDT) athologist Signature Hemoglobin A1C 6.7 (H) 4.3 - 6.0 [facility] Specimen Anatomical Collection Method Collection Time Receive d Time (Source) Location / / Volume Laterality Blood specimen 04/02/2010 8:16 AM 8:21 (specimen) CDT AM CDT Selma Good APRN, CNP LAB - BLOOD ORDERABLES Performing Organization Address City/[facility]/ZIP Code Phon e Number [facility] [address] [place] [address] [facility] documented in this encounter Visit [...] epilepsy documented in this encounter Care Teams Bee Worker Relationship Specialty Start Date End Date Danilo-Selma Mccoy, IT FIELD TECHNICIAN STATION INSTALLER PCP - General 04/09/08 04/07/[address] [facility] [address] [place], [place] [address] documented as of this encounter
--- OUTSIDE RECORDS SUMMARY | 2022-02-06 10:22 | XMS_ITS | Encounter Summary ---
:1965 Author Organization [place] Address [address] [place] [address] Care Team Providers Name Role Phone Selma Good APRN [facility] Primary Care Provider [phone] Reason for Visit Reason Comments Other Pt [...] Department Care Team Description 08/26/2010 Office Visit [facility] Florentino, Cellulitis of leg [place] Angeles APRN (Primary Dx) [address] [facility] [place] [address] [facility] [phone] [facility] [place] [id number] Social History Tobacco Use Types Packs/Day Years [...] How often do you attend rastafarian or temple Patient refused 08/08/2019 services? Do [...] ot documented in this encounter Care Teams Caddy Relationship Specialty Start Date End Date Selma Good APRN TIMBER ESTIMATOR PCP - General 04/09/08 04/07/[address] [place], [place] [address] documented as of this encounter
--- OUTSIDE RECORDS SUMMARY | 2022-02-06 10:22 | XMS_ITS | Encounter Summary ---
:1965 Author Organization [place] Address [address] [place] [address] Care Team Providers Name Role Phone Selma Good APRN PRIVATE TUTOR Primary Care Provider [phone] Reason for Visit Reason Comments Jaw Pain jaw pain, neck pain, arm valdo n all day. Encounter Details Date Type Department Care Team Description 10/28/2011 - Emergency [facility] Albert Calloway MD [facility] [address] [place], [place] [address] Chest pain; 10/29/[address] Ольга Hawkins MD [address] [place] [address] Hypertension goal BP (blood pressure) < 130/80; Surgical Vulvar dystrophy; [address] GERD (gastroesophageal reflu x disease); [place], [place] Hyperlipidemi a LDL goal <100 [phone] [...] How often do you attend yazdanism or orthodoxy Patient refused 08/08/2019 services? Do you belong to any clubs or organizations such as No 08/08/2019 yazdanism groups, [email or web address], [employer] or athletic groups, or school groups? [...] 10:55 AM CDT Thank you for allowing [facility] to participate in your cares. 1 out [...] her upper extremities reveals 5/5 strength of field artillery officer, biceps, triceps of the bilateral upper extremities [...] MD MT: #[id number] Name: MEGAN WONG Account: [id number] : 1965 Admitted: [id number] Document: [id number] documented in this encounter ED Notes Ciera [...] Normal sinus rhythm, ventricular rate 62 bpm. OR Interval: 196 ms QRS Duration: 98 ms [...] record. The patient was placed on a monitor worker and continuous pulse oximeter. IV inserted. 2230 [...] the hospital under the care of Dr. Hawikns for further evaluation and treatment. The patient [...] Individualization/Patient-Specific Goal (Adult,OB,Behavioral The patient and/or their sales representative rural power will achieve their patient-specific goals related to [...] . Pharmacy-Admission Medication History - Larry Reyes [facility] - 10/29/2011 9:28 AM CDT Medication Reconciliation Complete. Plan of Care - Cristina Lacy RN - 10/29/2011 7:03 AM CDT Problem: IP GENERAL POC-ADULT,OB,BEHAVIORAL FVCPM Goal: Individualization/Patient-Specific Goal (Adult,OB,Behavioral The patient and/or their sales representative rural power will achieve their patient-specific goals related to [...] 4:45 CDT PM CDT Kalyan Calloway MD [facility] POCT Performing Organization Address City/State/ZIP Code Phon e Number FV POINT OF CARE TEST, GLUCOSE POINT OF CARE TEST, GLUCOSE Echo stress test (10/29/2011 7:50 AM CDT) [facility] gist Method Time Signature [facility] Interpretation [...] Signature Troponin I ES <0.012 0.000 - [facility] 0.[facility] ug/L [facility] Specimen Anatomical Collection Method Collection Time Receive d Time (Source) Location / / Volume Laterality Blood specimen 10/29/2011 6:15 AM 012 6:39 (specimen) CDT AM CDT Wisam Weiss MD LAB - BLOOD ORDERABLES Performing Organization Address City/[facility] Phon e Number [place] [address] [place], [place] [address] [facility] LAB Hemoglobin A1c (10/29/2011 6:15 AM CDT) athologist Signature Hemoglobin A1C 5.5 4.3 - 6.0 [facility] LAB Specimen Anatomical Collection Method Collection Time Receive d Time (Source) Location / / Volume Laterality Blood specimen 10/29/2011 6:15 AM 012 6:38 (specimen) CDT AM CDT Wisam Weiss MD LAB - BLOOD ORDERABLES Performing Organization Address City/[facility] e [place] [address] [place], [place] [address] [address] [phone] [place] [address] LAB Troponin I (10/29/2011 2:35 AM CDT) athologist Signature Troponin I ES <0.012 0.000 - ON LICENSE OF [facility] 0.[facility] ug/L [facility] Specimen Anatomical Collection Method Collection Time Receive d Time (Source) Location / / Volume Laterality Blood specimen 10/29/2011 2:35 AM 012 2:36 (specimen) CDT AM CDT Ольга Hawkins MD LAB - BLOOD ORDERABLES Performing Organization Address City/[facility] Phon e [place] [address] [place], [place] [address] [facility] LAB CT Angiogram neck w [...] 1:30 CDT AM CDT Kalyan Calloway MD [facility] POCT Performing Organization Address City/State/ZIP [...] Signature D Dimer 0.4 0.0 - 0.50 [facility] ug/ml [facility] Specimen Anatomical Collection Method Collection Time Receive d Time (Source) Location / / Volume Laterality 10/28/2011 9:55 PM 2 CDT 10:12 PM CDT Kalyan Calloway MD LAB - BLOOD ORDERABLES Performing Organization Address City/[facility] Phon e Number [facility] [address] [place], [place] [address] [facility] LAB Troponin I (now) (10/28/2011 9:55 PM CDT) athologist Signature Troponin I ES <0.012 0.000 - [place] 0.034 ug/L [facility] Specimen Anatomical Collection Method Collection Time Receive d Time (Source) Location / / Volume Laterality Blood specimen 10/28/2011 9:55 PM 012 (specimen) CDT 10:12 PM CDT Kalyan Calloway MD LAB - BLOOD ORDERABLES Performing Organization Address City/[facility] Phon e Number [facility] [address] [place], [place] [address] [facility] LAB CBC + differential (10/28/2011 9:55 PM CDT) Patholo gist Method Time Signature WBC 8.1 4.0 - [place] 11.0 [facility] 10e9/L [facility] RBC Count 4.09 3.8 - 5.2 [place] 10e12/L [facility] Hemoglobin 12.3 11.7 - [place] 15.7 g/dL [facility] Hematocrit 37.9 35.0 - [place] 47.0 % [facility] MCV 93 78 - 100 [facility] LAB MCH 30.1 26.5 - [facility] 33.0 pg [facility] MCHC 32.5 31.5 - ON LICENSE [facility] 36.5 g/dL [facility] RDW 12.5 10.0 - [place] 15.0 % [facility] Platelet Count 221 150 - 450 [place] 10e9[facility] Diff Method Automated [place] Method [facility] % Neutrophils 48.0 40 - 75 % [facility] LAB % Lymphocytes 39.9 20 - 48 % [facility] LAB % Monocytes 7.9 0 - 12 % [facility] LAB % Eosinophils 3.1 0 - 6 % [facility] LAB % Basophils 0.7 0 - 2 % [facility] LAB % Immature 0.4 0 - 0.4 % [place] Granulocytes [facility] Absolute 3.9 1.6 - 8.3 [place] Neutrophil 10e9/L [facility] Absolute 3.3 0.8 - 5.3 [place] Lymphocytes [address] LAB Absolute 0.6 0.0 - 1.3 [place] Monocytes 10e9[facility] Absolute 0.3 0.0 - 0.7 [place] Eosinophils 10[facility] Absolute 0.1 0.0 - 0.2 [place] Basophils 10e9[facility] Abs Immature 0.0 0 - 0.03 [place] Granulocytes [address] [place] [address] LAB Specimen Anatomical Collection Method Collection Time Receive d Time (Source) Location / / Volume Laterality Blood specimen 10/28/2011 9:55 PM 012 (specimen) CDT 10:12 PM CDT Kalyan Calloway MD LAB - BLOOD ORDERABLES Performing Organization Address City/State/ZIP Code Phon e Number [facility] [address] [place], [place] [address] [facility] LAB (ABNORMAL) Basic metabolic panel (BMP) (10/28/2011 9:55 PM CDT) P athologist Signature Sodium 142 133 - 144 [place] mmol/L [facility] Potassium 3.6 3.4 - 5.3 [place] mmol/L [facility] Chloride 100 94 - 109 [place] mmol/L [facility] Carbon Dioxide 31 20 - 32 [place] mmol/L [facility] Anion Gap 12 6 - 17 [place] mmol/L [facility] Glucose 102 (H) 60 - 99 [place] mg/dL [facility] Urea Nitrogen 16 5 - 24 [place] mg/dL [facility] Creatinine 0.63 0.52 - ON LICENSE [facility] 1.04 mg/dL [facility] GFR Estimate >90 >60 [place] mL/min/1.[address] LAB GFR Estimate If >90 >60 [place] Black mL/min/1.[address] LAB Calcium 9.2 8.5 - 10.4 [place] mg/dL [facility] Specimen Anatomical Collection Method Collection Time Receive d Time (Source) Location / / Volume Laterality Blood specimen 10/28/2011 9:55 PM 012 (specimen) CDT 10:12 PM CDT Kalyan Calloway MD LAB - BLOOD ORDERABLES Performing Organization Address City/State/ZIP Code Phon e Number [place] [address] [place], [place] [address] [facility] EKG 12 lead (10/28/2011 9:15 PM CDT) Component Value Ref Range Test Analysis Performed Pathologis t Method Time At Signature Ventricular Rate 62 BPM RADIOLOGY RESULTS Atrial Rate 62 BPM RADIOLOGY RESULTS OR Interval 196 ms RADIOLOGY RESULTS QRS Duration 98 ms RADIOLOGY RESULTS QT 410 ms RADIOLOGY RESULTS QTc 416 ms RADIOLOGY RESULTS P [place] 57 degrees RADIOLOGY RESULTS R AXIS -27 degrees RADIOLOGY RESULTS T [place] 48 degrees RADIOLOGY RESULTS Interpretation AGE AND [...] doses documented in this encounter Care Teams Supervisor Sandblaster Relationship Specialty Start Date End Date Selma Good, AMMONIUM HYDROXIDE OPERATOR PRIVATE TUTOR PCP - General 04/09/08 04/07/[address] [facility] [address] documented as of this encounter
--- OUTSIDE RECORDS SUMMARY | 2022-02-06 10:22 | XMS_ITS | Encounter Summary ---
:1965 Author Organization [place] Address [facility] [place] [address] Care Team Providers Name Role Phone Selma Good APRN BREAD DISTRIBUTOR Primary Care Provider [phone] Encounter Details Date Type Department Care Team Description 03/13/2010 Consultation [facility] Lianna Devries MD Results [address] [place] [address] (Wo rk) Social History Tobacco [...] nr Name: PADMINI CHOI MRN: [id number] Account: [id number] : 1965 Visit Date: 03/13/2010 Document: [id number] documented in this encounter Plan of Treatment Not on filedocumented as of this encounter Procedures Procedure Name Priority Date/Time Associated Diagnosis Comme [facility] ZZC 03/21/2010 11:39 [...] nr Name: PADMINI CHOI MRN: [id number] Account: [id number] : 1965 Visit Date: 03/13/2010 Document: [id number] Sriram Sosa MD PROCEDURES documented in this encounter Visit Diagnoses Not on filedocumented in this encounter Care Teams Codifier Relationship Specialty Start Date End Date Danilo-Selma Mccoy, COMPRESSOR STATION CHIEF ENGINEER BREAD DISTRIBUTOR PCP - General 04/09/08 04/07/15 [address] [facility] [place] [address] documented as of this encounter
--- OUTSIDE RECORDS SUMMARY | 2022-02-06 10:22 | XMS_ITS | Encounter Summary ---
:1965 Author Organization [place] Address [address] [place] [address] Care Team Providers Name Role Phone Selma Good APRN DATABASE REPORT WRITER Primary Care Provider [phone] Reason for Visit [facility] Physical Therapy (Routine) - Closed Specialty Diagnoses / Procedures Referred By Contact Refer red To Contact Rayo Whitehead, MARÍA [facility] [address] [facility] [address] [place] [address] Referral ID Status Reason Start Date Expiration Date Visits Requ ested Visits Authorized HP - FOOT Closed 01/03/2010 06/10/2010 12 10 Encounter Details Date Type Department Care Team Description 01/27/2010 Therapy Visit [place] for Graciela Dupree, PT Other Peripheral Athletic Medicine - [address] Enthesopathies (Primary [place] Physical [place] [address] Dx) Therapy [phone] [address] (Work) [place] [address] Social History Tobacco Use Types Packs/Day Years [...] How often do you attend hindu or voodoo Patient refused 08/08/2019 services? Do you belong to any clubs or organizations such as No 08/08/2019 hindu groups, [employer], [email or web address] or athletic groups, or school groups? How [...] Priority Date/Time Associated Diagnosis Comme [facility] ZZC THERAPEUTIC Routine 01/27/2010 4:19 PM Other Peripheral EXERCISES CDT Enthesopathies Z ELECTRIC CURRENT Routine 01/27/2010 4:19 PM Other Peripher al THERAPY CDT Enthesopathies [facility] MANUAL THER Routine 01/27/2010 4:19 PM Other Peripheral TECH,1+REGIONS,EA 15 CDT Enthesopathies MIN documented in this encounter Visit Diagnoses Diagnosis Other peripheral enthesopathies - Primar y documented in this encounter Care Teams Doctor Of Medicine Relationship Specialty Start Date End Date Selma Good, ASSISTANT AT SURGERY DATABASE REPORT WRITER PCP - General 04/09/08 04/07/[address] [address] documented as of this encounter
--- OUTSIDE RECORDS SUMMARY | 2022-02-06 10:22 | XMS_ITS | Encounter Summary ---
:1965 Author Organization [place] Address [address] [place] [address] Care Team Providers Name Role Phone Selma Good APRN JOB COUNSELOR Primary Care Provider [phone] Reason for Visit Reason Onset Date Comments Refill Request 06/20/2010 omeprazole Encounter Details Date Type Department Care Team Description 06/20/2010 Refill [facility] Eag Selma Anthony Refill Request [address], SEAN JOB COUNSELOR (omeprazole ) [place] [phone] [address] [facility] [phone] [facility] [place] [address] (Wo rk) Social [...] How often do you attend restorationist or buddhist Patient refused 08/08/2019 services? Do [...] per standing order per protocol. Zak JERNIGAN GRAPHIC ANALYST documented in this encounter Plan of Treatment Not on filedocumented as of this encounter Visit Diagnoses Diagnosis GERD (gastroesophageal reflux disease) - Primary Esophageal reflux documented in this encounter Care Teams Zigzag Tunnel Elastic Operator Relationship Specialty Start Date End Date Danilo-Selma Mccoy, BUSINESS DEVELOPMENT SPECIALIST JOB COUNSELOR PCP - General 04/09/08 04/07/[address] [place] [address] documented as of this encounter
--- OUTSIDE RECORDS SUMMARY | 2022-02-06 10:22 | XMS_ITS | Encounter Summary ---
:1965 Author Organization [place] Address [address] [place] [address] Care Team Providers Name Role Phone Selma Good APRN AUTOMATIC PRESSER Primary Care Provider [phone] Reason for Visit Reason Comments UTI Or yeast symptoms Encounter Details Date Type Department Care Team Description 07/27/2011 Office Visit [facility] Vanda Guerrero Vaginal infection; Pino Toribio MD UTI (urinary tract infection); [address] [employer] [address] [place] [address] Vaginal itching [place] [phone] [facility] [address] [phone] [place] [id number] (Wo rk) Social History Tobacco Use Types [...] How often do you attend samaritan or judaism Patient refused 08/08/2019 services? Do [...] Comments Blood Pressure 110/65 07/27/2011 9:40 AM RN RESOURCE NURSE Pulse 68 07/27/2011 9:40 AM RN RESOURCE NURSE Temperature - - Respiratory Rate - - Oxygen Saturation - - Inhaled Oxygen Concentration - - Weight 72.6 kg (160 lb) 07/27/2011 9:40 AM RN RESOURCE NURSE Height 157.5 cm (5' 2) 07/27/2011 9:40 AM RN RESOURCE NURSE Body Mass Index 29.26 07/27/2011 9:40 AM RN RESOURCE NURSE documented in this encounter Patient Instructions Patient InstructionsVanda Guerrero MD - 07/27/2011 10:02 AM CST Bladder infection - push fluids - start taking bactrim twice daily for the next 3 days Vaginal itching - normal wet prep today - trial of steroid cream - use twice daily - make appt to see direct mail clerk again RESOURCE NURSE documented in this encounter Progress Notes Vanda [...] Ketones Urine Low: NEG mg/dL Negative Specific [place] Urine 1.003 - 1.035 1.025 Blood Urine [...] twice daily - make appt to see direct mail clerk again Vanda Guerrero MD Internal Medicine - Pediatrics RESOURCE NURSE documented in this encounter Nursing Notes 07/27/2011 9:30 AM CST >> KEYANNA WOODWARDSALAS [facility] Jul 27, 2011 9:43 AM Patient presents [...] (urinary tract Resu lts for this AM RN RESOURCE NURSE infection) procedure are i n the results section. URINE MICROSCOPIC Routine 07/27/2011 9:37 AM Resu lts for this RN RESOURCE NURSE procedure are i n the results section. UA MACROSCOPIC WITH Routine 07/27/2011 9:37 AM UTI (urinary tr act Results for this REFLEX TO MICROSCOPIC RN RESOURCE NURSE infection) proced ure are in AND CULTURE the results section. WET PREPARATION Routine 07/27/2011 9:33 AM Vaginal infection R esults for this RN RESOURCE NURSE procedure are i n the results section. documented in this encounter Results Urine culture (07/27/2011 10:03 AM RN RESOURCE NURSE) Component Value Ref Test Analysis Performed At [...] Urine specimen 07/27/2011 10:03 2 (specimen) AM RN RESOURCE NURSE 10:06 AM RN RESOURCE NURSE Vanda Guerrero MD LAB - MICRO GENERAL ORDERABL ES Performing Organization Address City/State/ZIP Code Phon e Number [facility] [address] [place], [place] [id number] [place] [address] [facility] MICROBIOLOGY (ABNORMAL) Urine Microscopic (07/27/2011 9:37 AM RN RESOURCE NURSE) Analysis Performed At Patho logist Time Signature WBC Urine 5-10 (A) 0 - 2 /HPF [facility] RBC Urine O - 2 0 - 2 /HPF [place] [facility] Squamous Few FEW /LPF [facility] Urine LAB Bacteria Urine Few (A) NEG /HPF [place] [facility] Specimen Anatomical Collection Method Collection Time Receive d Time (Source) Location / / Volume Laterality 07/27/2011 9:37 AM 2 9:39 RN RESOURCE NURSE AM RN RESOURCE NURSE Vanda Guerrero MD LAB - URINE ORDERABLES Performing Organization Address [facility]/ZIP [facility] Phon [place] Number [address] [address] [facility] (ABNORMAL) *UA macro reflex to micro and culture (07/27/2011 9:37 AM RN RESOURCE NURSE) [facility] Method Time Signature Color Urine Yellow [facility] Appearance Urine Clear [facility] Glucose Urine 250 (A) NEG mg/dL [facility] Bilirubin Urine Negative NEG [facility] Ketones Urine Negative NEG mg/dL [facility] Specific [place] 1.025 1.003 - [place] Urine 1.035 [facility] Blood Urine Trace (A) NEG [facility] pH Urine 5.0 5.0 - 7.0 [place] pH [facility] Protein Albumin Negative NEG mg/dL [place] Urine [facility] Urobilinogen 0.2 0.2 - 1.0 [place] Urine EU/dL [facility] Nitrite Urine Negative NEG [facility] Leukocyte Negative NEG [place] Esterase Urine [facility] Source Midstream [place] Urine [facility] Specimen Anatomical Collection Method Collection Time Receive d Time (Source) Location / / Volume Laterality Urine specimen 07/27/2011 9:37 AM 012 9:39 (specimen) RN RESOURCE NURSE AM RN RESOURCE NURSE Vanda Guerrero MD LAB - URINE ORDERABLES Performing Organization Address City/[facility]/ZIP Code Phon e Number [facility] [address] [place] [address] [facility] Wet prep (07/27/2011 9:33 AM RN RESOURCE NURSE) [facility] Method Time Signature Specimen Urine [place] Description [facility] Wet Prep No Trichomonas seen [place] No clue cells seen [facility] No yeast seen LAB Micro Report FINAL [place] Status 07/27/2011 [facility] Specimen Anatomical Collection Method Collection Time Receive d Time (Source) Location / / Volume Laterality 07/27/2011 9:33 AM 2 9:35 RN RESOURCE NURSE AM RN RESOURCE NURSE Vanda Guerrero MD LAB - MICRO GENERAL ORDERABL ES Performing Organization Address City/State/ZIP Code Phon e Number [facility] [address] [facility] [place] [address] [facility] documented in this encounter Visit Diagnoses Diagnosis Vaginal infection Vaginitis and vulvovaginitis, unspecifie d UTI (urinary tract infection) Urinary tract infection, site not specif ied Vaginal itching Pruritus of genital organs documented in this encounter Care Teams Salesperson Florist Supplies Relationship Specialty Start Date End Date Selma Good, SEAN AUTOMATIC PRESSER PCP - General 04/09/08 04/07/15 [address] [facility] [place] [address] documented as of this encounter
--- OUTSIDE RECORDS SUMMARY | 2022-02-06 10:22 | XMS_ITS | Encounter Summary ---
:1965 Author Organization [place] Address [address] [place] [address] Care Team Providers Name Role Phone Selma Good APRN BLANCHING MACHINE OPERATOR Primary Care Provider [phone] Reason for Visit [facility] Physical Therapy (Routine) - Closed Specialty Diagnoses / Procedures Referred By Contact Refer red To Contact Rayo Whitehead, MARÍA [facility] [address] [facility] [address] [place] [address] Referral ID Status Reason Start Date Expiration Date Visits Requ ested Visits Authorized HP - FOOT Closed 01/03/2010 06/10/2010 12 10 Encounter Details Date Type Department Care Team Description 01/14/2010 Therapy Visit [place] for Graciela Dupree, PT Other Peripheral Athletic Medicine - [address] Enthesopathies (Primary [place] Physical [place] [address] Dx) Therapy [phone] [address] (Work) [place] [address] Social History Tobacco Use Types Packs/Day Years [...] How often do you attend sikhism or jewish Patient refused 08/08/2019 services? Do you belong to any clubs or organizations such as No 08/08/2019 sikhism groups, theRightAPIs, fraGreenIQ or athletic groups, or school groups? How [...] Sheet for this information) Short term and terminal clerk goals: (See Goal Flow Sheet for this [...] y documented in this encounter Care Teams Stitching Machine Feeder Or Offbearer Relationship Specialty Start Date End Date Selma Good APRN BLANCHING MACHINE OPERATOR PCP - General 04/09/08 04/07/15 [address] [facility] [place] [address] documented as of this encounter
--- OUTSIDE RECORDS SUMMARY | 2022-02-06 10:22 | XMS_ITS | Encounter Summary ---
:1965 Author Organization [place] Address [address] [place] [address] Care Team Providers Name Role Phone Selma Good APRN ATHLETIC MONITOR Primary Care Provider [phone] Reason for Visit Reason Onset Date Comments Chronic Care Conference Provider Overview 04/06/2010 Encounter Details Date Type Department Care Team Description 04/06/2010 Telephone [facility] Eag adarsh Good, Chronic Care Conference [address] [facility] Selma Angeles APRN ATHLETIC MONITOR Provider Overview [place] [phone] [address] [facility] [phone] [facility] [place] [address] [...] How often do you attend buddhist or holiness Patient refused 08/08/2019 services? Do [...] on filedocumented in this encounter Care Teams Property Handler Relationship Specialty Start Date End Date Selma Good, MECHANICAL SOUND TECHNICIAN ATHLETIC MONITOR PCP - General 04/09/08 04/07/[address] [facility] [address] [place], [place] [address] documented as of this encounter
--- OUTSIDE RECORDS SUMMARY | 2022-02-06 10:22 | XMS_ITS | Encounter Summary ---
:1965 Author Organization [place] Address [address] [place] [address] Care Team Providers Name Role Phone Selma Good APRN TRACTOR OPERATOR Primary Care Provider [phone] Encounter Details Date Type Department Care Team Description 01/19/2010 Orders Only [facility] Eag an Prediabetes [address] [place] [address] Social History Tobacco Use Types Packs/Day [...] How often do you attend jainism or anglican Patient refused 08/08/2019 services? Do [...] Hemoglobin A1C 6.4 (H) 4.3 - 6.0 [facility] Specimen Anatomical Collection Method Collection Time Receive d Time (Source) Location / / Volume Laterality 01/19/2010 3:46 PM 0 3:51 CDT PM CDT Selma Good APRN TRACTOR OPERATOR LABORATORY Performing Organization Address City/State/ZIP Code Phon e Number [address] [address] [facility] documented in this encounter Visit Diagnoses Diagnosis Prediabetes Other abnormal glucose documented in this encounter Care Teams Restaurant Hospitality Manager Relationship Specialty Start Date End Date Selma Good, COMMERCIAL SPECIALIST TRACTOR OPERATOR PCP - General 04/09/08 04/07/15 8522 [facility] [place] [address] documented as of this encounter
--- OUTSIDE RECORDS SUMMARY | 2022-02-06 10:22 | XMS_ITS | Encounter Summary ---
:1965 Author Organization [place] Address [address] [place] [address] Care Team Providers Name Role Phone Selma Good APRN, CNP Primary Care Provider [phone] Reason for Visit Reason Onset Date Comments Refill Request 10/14/2010 change Omeprazole Rx to mail order pharmacy Encounter Details Date Type Department Care Team Description 10/14/2010 Refill [facility] Eag Selma Anthony Refill Request (change [facility] [place] CNP Omeprazole Rx to mail [place] [phone] [place] [address] pharmacy) [phone] [facility] [place] [id number] (Wo rk) Social History Tobacco Use Types [...] How often do you attend taoist or congregation Patient refused 08/08/2019 services? Do [...] 9:28 AM CDT Requesting Rx sent to [facility] mail order pharmacy instead of [facility]. Rx faxed to [facility]. Thea Winchester RN documented in this encounter Plan of Treatment Not on filedocumented as of this encounter Visit Diagnoses Diagnosis GERD (gastroesophageal reflux disease) - Primary Esophageal reflux documented in this encounter Care Teams Mock Up Builder Relationship Specialty Start Date End Date Danilo-Selma Mccoy APRN HEEL SANDER PCP - General 10/30/08 10/28/[address] [place] [address] documented as of this encounter
--- OUTSIDE RECORDS SUMMARY | 2022-02-06 10:22 | XMS_ITS | Encounter Summary ---
:1965 Author Organization [place] Address [address] [place] [address] Care Team Providers Name Role Phone Selma Good APRN STAMPING MILL TENDER Primary Care Provider [phone] Reason for Visit Reason Comments Consult chronic vaginal itching x's 9 months - tried a steroid cream that made sx's worse - menstral cycle also seems to make sx's worse Encounter Details Date Type Department Care Team Description 10/18/2011 Office Visit [facility] [facility] Fermin Nelson Vulvar dystrophy (Primary Dx); [place] Alejandro MD Vaginal itching; [address] [place] [address] Menorrhagia [place] [address] [facility] [phone] [place] [id number] Social History Tobacco Use Types Packs/Day Years [...] Body Mass Index 31.46 07/27/2011 9:40 AM TANK WELDER documented in this encounter Progress Notes Kallie [...] Component Value Ref Test Analysis Performed At [facility] Method Time Signature Copath Report Patient Name: MEGAN CHOI MR#: [id number] Specimen #: [id number] Collected: 10/18/2011 Received: 10/19/2011 Reported: 10/23/2011 07:01 [...] is required. PATRICIO/ritu DT/5-11-12 TESTING LAB LOCATION: [facility] [address] [place], [place] ??[phone] COLLECTION SITE: Client: [facility] Location: EAOB (R) Specimen Anatomical Collection Method Collection Time Receive d Time (Source) Location / / Volume Laterality 10/18/2011 1:42 PM 2 7:49 CDT AM CDT Fermin Nelson MD LAB - BEAKER AP Performing Organization Address City/[facility]/ZIP Code Phon e Number COP[place] Wet prep (10/18/2011 10:20 AM CDT) [facility] gist Method Time Signature Specimen Vagina [place] Description [facility] Wet Prep No Trichomonas seen [place] Clue cells seen [facility] Yeast seen LAB Micro Report FINAL [place] Status 10/18/2011 [facility] Specimen Anatomical Collection Method Collection Time Receive d Time (Source) Location / / Volume Laterality 10/18/2011 10:20 10/18/2011 AM CDT 10:23 AM CDT Fermin Nelson MD LAB - MICRO GENERAL ORDERABL ES Performing Organization Address City/[facility]/ZIP Code Phon e Number [facility] [address] [facility] [place] [address] [facility] documented in this encounter Visit Diagnoses Diagnosis Vulvar dystrophy - Primary Other dystrophy of vulva Vaginal itching Pruritus of genital organs Menorrhagia Excessive or frequent menstruation documented in this encounter Care Teams Objective C Developer Relationship Specialty Start Date End Date Danilo-Selma Mccoy, APPLICATIONS TRAINER STAMPING MILL TENDER PCP - General 04/09/08 04/07/15 [facility] [place] [address] documented as of this encounter
--- OUTSIDE RECORDS SUMMARY | 2022-02-06 10:22 | XMS_ITS | Encounter Summary ---
:1965 Author Organization [place] Address [address] [place] [address] Care Team Providers Name Role Phone Selma Good APRN SAP TREASURY CONSULTANT Primary Care Provider [phone] Reason for Visit Reason Comments Vaginal Problem c/o vaginal itching and disc harge x 2 mos,has tried OTC Monistat 7 day with previous relief Flu Shot Encounter Details Date Type Department Care Team Description 03/09/2011 Office Visit [facility] Vanda Guerrero vaginosis (Primary Dx); [place] Toribio MD Vaginal candidiasis; [address] [employer] [address] [place] [address] Migraine headaches; [place] [address] [facility] Need for prophylactic vaccination and in oculation against influenza [phone] [place] [address] (Wo rk) Social History [...] How often do you attend temple or hoahaoism Patient refused 08/08/2019 services? Do [...] starting to take care of her grandchildren prn physical therapist. She usually follows with Dr Howard for [...] 03/09/2011 10:00 AM CDT >> ADALBERTO VILLAFANA [facility] Mar 09, 2011 10:14 AM Patient [...] to contact lens solution/thimerosol? No History of Guillain-[place] syndrome? No Undergoing chemotherapy or radiation therapy? [...] Results Wet prep (03/09/2011 10:04 AM CDT) [facility] Method Time Signature Specimen Vagina [place] Description [facility] Wet Prep No Trichomonas seen [place] Clue cells seen [facility] Yeast seen LAB Micro Report FINAL [place] Status 03/09/2011 [facility] Specimen Anatomical Collection Method Collection Time Receive d Time (Source) Location / / Volume Laterality 03/09/2011 10:04 03/09/2011 AM CDT 10:09 AM CDT Vanda Guerrero MD LAB - MICRO GENERAL ORDERABL ES Performing Organization Address City/State/ZIP Code Phon e Number [facility] [address] [place] [address] [facility] documented in this encounter Visit Diagnoses Diagnosis Bacterial vaginosis - Primary Vaginitis and vulvovaginitis, unspecifie d Vaginal candidiasis Candidiasis of vulva and vagina Migraine headaches Migraine, unspecified, without mention o f intractable migraine without mention of status migrainosus Need for prophylactic vaccination and in oculation against influenza documented in this encounter Care Teams Rn Cardiac Relationship Specialty Start Date End Date Danilo-Selma Mccoy, CHARTER COORDINATOR SAP TREASURY CONSULTANT PCP - General 04/09/08 04/07/[address] [facility] [place] [address] documented as of this encounter
--- OUTSIDE RECORDS SUMMARY | 2022-02-06 10:22 | XMS_ITS | Encounter Summary ---
:1965 Author Organization [place] Address [address] [place] [address] Care Team Providers Name Role Phone Selma Good APRN SECURITY SOFTWARE ENGINEER Primary Care Provider [phone] Encounter Details Date Type Department Care Team Description 06/21/2011 Office Visit [facility] Diego Padilla NO SHOW (Primary Dx) [address] [place] [address] [address] [facility] [phone] [facility] [place] [address] Social History Tobacco [...] How often do you attend cheondoism or mormonism Patient refused 08/08/2019 services? Do [...] - 06/26/2011 9:56 AM CST appt cancelled DENT PHYSICIAN IN RADIOLOGY documented in this encounter Plan of Treatment Not on filedocumented as of this encounter Visit Diagnoses Diagnosis NO SHOW - Primary documented in this encounter Care Teams Professor Of Violin Relationship Specialty Start Date End Date Selma Good, SEAN SECURITY SOFTWARE ENGINEER PCP - General 04/09/08 04/07/[address] [facility] [address] documented as of this encounter
--- OUTSIDE RECORDS SUMMARY | 2022-02-06 10:22 | XMS_ITS | Encounter Summary ---
:1965 Author Organization [place] Address [address] [place] [address] Care Team Providers Name Role Phone Selma Good APRN STENCIL MAKER Primary Care Provider Reason for Visit Reason Comments Diabetes Education Encounter Details Date Type Department Care Team Description 01/26/2010 Office Visit [facility] Arianna Caldwell Prediabetes (Primary Dx); XX RESIGNED XX DM w/o Complication Type II, [place] [address] (Wo rk) Social History Tobacco [...] How often do you attend scientology or muslim Patient refused 08/08/2019 services? Do [...] Body Mass Index 37.11 07/12/2009 4:06 PM PRESSURE VESSEL INSPECTOR documented in this encounter Patient Instructions [...] up: I will follow up with my informatics educator: At classes or in a couple [...] since last visit Language(s) spoken at home: Luxembourgish ROS: Patient experiencing the following diabetes related [...] uncontrolled documented in this encounter Care Teams Copy Lathe Operator Relationship Specialty Start Date End Date Danilo-Selma Mccoy, RN SOCIAL WORK STENCIL MAKER PCP - General 04/09/08 04/07/15 [address] [facility] [place] [address] documented as of this encounter
--- OUTSIDE RECORDS SUMMARY | 2022-02-06 10:22 | XMS_ITS | Encounter Summary ---
:1965 Author Organization [place] Address [address] [place] [address] Care Team Providers Name Role Phone Selma Good APRN STATE COMPTROLLER Primary Care Provider [phone] Encounter Details Date Type Department Care Team Description 10/23/2011 Orders Only [facility] Diego Nelson Vulvar dystrophy [facility] MD Flavia (Primary Dx) [place] [address] [place] [address] Flex [address] [facility] [address] [place] [address] [place], [place] [phone] [address] (Work) [phone] Social History Tobacco Use Types Packs/Day Years [...] How often do you attend sikh or holiness Patient refused 08/08/2019 services? Do [...] vulva documented in this encounter Care Teams Food Preservation Scientist Relationship Specialty Start Date End Date Selma Good, GRAB SETTER STATE COMPTROLLER PCP - General 04/09/08 04/07/[address] [facility] [address] [place], [place] [address] documented as of this encounter
--- OUTSIDE RECORDS SUMMARY | 2022-02-06 10:23 | XMS_ITS | Encounter Summary ---
:1965 Author Organization [place] Address [address] [place] [address] Care Team Providers Name Role Phone Selma Good APRN FERRIS WHEEL ATTENDANT Primary Care Provider [phone] Reason for Visit Reason Onset Date Comments Headache 12/16/2009 send migraine letter 1 month-01/15/10 Encounter Details Date Type Department Care Team Description 12/16/2009 Telephone [facility] Eag adarsh Good, Headache (send migraine [address] Selma Angeles APRN FERRIS WHEEL ATTENDANT letter 1 month-01/15/10 ) [place] [address] [facility] [phone] [facility] [place] [id number] (Wo rk) Social History Tobacco Use Types [...] How often do you attend catholic or amish Patient refused 08/08/2019 services? Do [...] in this encounter Care Teams Printed Circuit Boards Router Relationship Specialty Start Date End Date Danilo-Selma Mccoy APRN FERRIS WHEEL ATTENDANT PCP - General 04/09/08 04/07/[address] [place] [address] documented as of this encounter
--- OUTSIDE RECORDS SUMMARY | 2022-02-06 10:23 | XMS_ITS | Encounter Summary ---
:1965 Author Organization [place] Address [address] [place] [address] Care Team Providers Name Role Phone Selma Good APRN WIRE COILER MACHINE OPERATOR Primary Care Provider [phone] Reason for Visit [facility] Physical Therapy (Routine) - Closed Specialty Diagnoses / Procedures Referred By Contact Refer red To Contact Rayo Rouse PA-C [facility] [place] [address] [address] [place] [address] Referral ID Status Reason Start Date Expiration Date Visits Requ ested Visits Authorized HP - ELBOW Closed 03/22/2009 06/10/2009 17 15 Encounter Details Date Type Department Care Team Description 04/23/2009 Therapy Visit [place] for Graciela Dupree PT Lateral Epicondylitis Athletic Medicine - [address] of Elbow (Primary Dx) [place] [facility] [place] [address] Therapy [phone] [facility] Priscilla Sharpe (Work) [place] [address] Social History Tobacco Use Types Packs/Day Years [...] How often do you attend holiness or mosque Patient refused 08/08/2019 services? Do [...] Medicaid as primary or secondary insurance? NO CHUTE CUSHION INSTALLER documented in this encounter Plan of Treatment Not on filedocumented as of this encounter Procedures Procedure Name Priority Date/Time Associated Diagnosis Comme nts [facility] MANUAL [facility]ER Routine 04/23/2009 4:27 PM Lateral Epicondylit is of TECH,1+REGIONS,EA 15 [place] CUSHION INSTALLER Elbow MIN Z THERAPEUTIC Routine 04/23/2009 4:27 PM Lateral Epicondylit is of EXERCISES [place] CUSHION INSTALLER Elbow documented in this encounter Visit Diagnoses Diagnosis Lateral epicondylitis of elbow - Primary Lateral epicondylitis of elbow documented in this encounter Care Teams Slusher Operator Relationship Specialty Start Date End Date Danilo-Selma Mccoy, INSTALLATION SUPERINTENDENT WIRE COILER MACHINE OPERATOR PCP - General 04/09/08 04/07/15 [address] [facility] [address] [place], [place] [address] documented as of this encounter
--- OUTSIDE RECORDS SUMMARY | 2022-02-06 10:23 | XMS_ITS | Encounter Summary ---
:1965 Author Organization [place] Address [address] [place] [address] Care Team Providers Name Role Phone Selma Good APRN [facility] Primary Care Provider [phone] Reason for Visit Reason Comments Foot Problems [...] Department Care Team Description 12/15/2009 Office Visit [facility] Florentino, Foot Pain ( Primary Dx); [place] APRN Migraine Headaches [address] [facility] [place] [address] [address] [facility] [phone] [facility] [place] [id number] Social History Tobacco Use Types Packs/Day Years [...] How often do you attend shinto or rastafari Patient refused 08/08/2019 services? Do [...] Body Mass Index 37.93 07/12/2009 4:06 PM [employer] documented in this encounter Progress Notes Selma [...] migrainosus documented in this encounter Care Teams Box Chipper Relationship Specialty Start Date End Date Danilo-Selma Mccoy, PERSONAL SERVICE REPRESENTATIVE CONTRACTS OFFICER PCP - General 04/09/08 04/07/15 [address] [facility] [place] [address] documented as of this encounter
--- OUTSIDE RECORDS SUMMARY | 2022-02-06 10:23 | XMS_ITS | Encounter Summary ---
:1965 Author Organization [place] Address [address] [place] [address] Care Team Providers Name Role Phone Selma Good APRN ROLLER MILL OPERATOR Primary Care Provider [phone] Reason for Visit Reason Comments UTI Encounter Details Date Type Department Care Team Description 07/12/2009 Office Visit [facility] Kleber Lima MD UTI (Urinary Tract Infection) (Primary D x); [place] [address] [facility] Positional Vertigo [address] [place] [address] [place] [address] [place] [address] Social History Tobacco Use [...] How often do you attend spiritism or congregational Patient refused 08/08/2019 services? Do [...] Comments Blood Pressure 128/72 07/12/2009 4:06 PM QUANTOMETER OPERATOR Pulse 68 07/12/2009 4:06 PM QUANTOMETER OPERATOR Temperature 36.8 ??C (98.2 ??F) 07/12/2009 4:06 PM QUANTOMETER OPERATOR Respiratory Rate - - Oxygen Saturation 100% 07/12/2009 4:06 PM QUANTOMETER OPERATOR Inhaled Oxygen Concentration - - Weight 95.7 kg (210 lb 14.4 oz) 07/12/2009 4:06 PM QUANTOMETER OPERATOR Height 157.5 cm (5' 2) 07/12/2009 4:06 PM QUANTOMETER OPERATOR Body Mass Index 38.57 07/12/2009 4:06 PM QUANTOMETER OPERATOR documented in this encounter Progress Notes Kleber [...] ??? Obesity 278.00J ??? Family History of PA (Myocardial Infarction) V17.3Y Past Medical History Diagnosis [...] Kleber Lima MD Internal Medicine and Pediatrics TOMETER OPERATOR Anh Winn - 07/12/2009 4:12 PM CST [...] ??? Control/ Protection: Surgical Tubal WYATT Frey TOMETER OPERATOR documented in this encounter Nursing Notes 07/12/2009 [...] BP completed using cuff size: yennifer Frey.Era, VERSE WRITER documented in this encounter Plan of Treatment Not on filedocumented as of this encounter Procedures Procedure Name Priority Date/Time Associated Diagnosis Comme nts HCL UA MICRO IF Routine 07/12/2009 4:24 PM UTI (Urinary Tract Results for this POSITIVE QUANTOMETER OPERATOR Infection) procedure are i n the results section. CL AFF MICRO Routine 07/12/2009 4:24 PM Results f or this EXAM-URINE QUANTOMETER OPERATOR procedure are i n the results section. documented in this encounter Results (ABNORMAL) MICRO EXAM-URINE (07/12/2009 4:24 PM QUANTOMETER OPERATOR) P athologist Signature WBC Urine 5-10 (A) 0 - 2 /HPF [facility] RBC Urine O - 2 0 - 2 /HPF [facility] Squamous EPI Few FEW /LPF [facility] Bacteria Urine Few (A) NEG /HPF [facility] Specimen Anatomical Collection Method Collection Time Receive d Time (Source) Location / / Volume Laterality 07/12/2009 4:24 PM 0 4:28 QUANTOMETER OPERATOR PM QUANTOMETER OPERATOR Kleber Lima MD LABORATORY Performing Organization Address City/State/ZIP Code Phon e Number [address] [address] [facility] (ABNORMAL) UA MICRO IF POSITIVE (07/12/2009 4:24 PM QUANTOMETER OPERATOR) [facility] gist Method Time Signature Color Urine Yellow [facility] Appearance Urine Slightly [place] Cloudy [facility] Glucose Urine Negative NEG mg/dL [facility] Bilirubin Urine Negative NEG [facility] Ketones Urine Negative NEG mg/dL [facility] Specific [place] 1.015 1.003 - [place] Urine 1.035 [facility] Blood Urine Negative NEG [facility] pH Urine 5.5 5.0 - 7.0 [place] pH [facility] Protein Albumin Negative NEG mg/dL [place] Urine [facility] Urobilinogen 0.2 0.2 - 1.0 [place] Urine EU/dL [facility] Nitrite Urine Negative NEG [facility] Leukocyte Small (A) NEG [place] Esterase Urine [facility] Source Midstream [place] Urine [facility] Specimen Anatomical Collection Method Collection Time Receive d Time (Source) Location / / Volume Laterality 07/12/2009 4:24 PM 0 4:28 QUANTOMETER OPERATOR PM QUANTOMETER OPERATOR Kleber Lima MD LABORATORY Performing Organization Address City/State/ZIP Code Phon e Number [facility] [address] [facility] [place] [address] [facility] documented in this encounter Visit Diagnoses Diagnosis UTI (urinary tract infection) - Primary Urinary tract infection, site not specif ied Positional vertigo Benign paroxysmal positional vertigo documented in this encounter Care Teams Seasoning Mixer Relationship Specialty Start Date End Date Danilo-Selma Mccoy, PROGRAMMER ANALYST CONSULTANT ROLLER MILL OPERATOR PCP - General 04/09/08 04/07/15 [address] [facility] [place] [address] documented as of this encounter
--- OUTSIDE RECORDS SUMMARY | 2022-02-06 10:23 | XMS_ITS | Encounter Summary ---
:1965 Author Organization [place] Address [address] [place] [address] Care Team Providers Name Role Phone Selma Good APRN [facility] Primary Care Provider [phone] Reason for Visit [facility] Physical Therapy (Routine) - Closed Specialty Diagnoses / Procedures Referred By Contact Refer red To Contact Kylah Howard MD [facility]LETIC [facility] [address] [facility] [address] [place] [address] Referral ID Status Reason Start Date Expiration Date Visits Requ ested Visits Authorized HP - NECK Closed 11/15/2009 06/10/2010 8 8 Encounter Details Date Type Department Care Team Description 12/14/2009 Therapy Visit [place] for Vadim Banda P Pietro Cervical Pain Athletic Medicine - Rehab Services (Prima ry Dx) [facility] [address] [place] [address] [place] [address] [place] [address] [phone] Social History Tobacco Use Types Packs/Day Years [...] How often do you attend taoism or latter-day Patient refused 08/08/2019 services? Do you belong to any clubs or organizations such as No 08/08/2019 taoism groups, Wevebobs, fraternal or athletic groups, or school groups? [...] Cervicalgia documented in this encounter Care Teams De Icer Relationship Specialty Start Date End Date Danilo-Selma Mccoy, ENGINE MAINTENANCE MECHANIC WHARF TENDER HELPER PCP - General 04/09/08 04/07/[address] [facility] [address] [place], [place] [address] documented as of this encounter
--- OUTSIDE RECORDS SUMMARY | 2022-02-06 10:23 | XMS_ITS | Encounter Summary ---
:1965 Author Organization [place] Address [address] [place] [address] Care Team Providers Name Role Phone Selma Good APRN [facility] Primary Care Provider [phone] Reason for Visit [facility] Physical Therapy (Routine) - Closed Specialty Diagnoses / Procedures Referred By Contact Refer red To Contact Kylah Howard MD [facility]THLETIC [facility] CLINIC OF NEURO LOG[place] MED [address] [facility] [address] [place] [address] Referral ID Status Reason Start Date Expiration Date Visits Requ ested Visits Authorized HP - NECK Closed 11/15/2009 06/10/2010 8 8 Encounter Details Date Type Department Care Team Description 12/24/2009 Therapy Visit [place] for Vadim Banda P Pietro Cervical Pain Athletic Medicine - Rehab Services (Prima ry Dx) [facility] Therapy [address] [place] [address] [place] [address] [place] [address] [phone] Social History Tobacco Use Types Packs/Day Years [...] How often do you attend synagogue or bahai Patient refused 08/08/2019 services? Do you belong to any clubs or organizations such as No 08/08/2019 synagogue groups, Tyromers, fraternal or athletic groups, or school groups? [...] is being advanced to more complex exercises. ESCALATOR ATTENDANT/ATC plan: N/A Please refer to the daily flowsheet for treatment today, total treatment time and time spent performing 1:1 timed codes. documented in this encounter Plan of Treatment Not on filedocumented as of this encounter Procedures Procedure Name Priority Date/Time Associated Diagnosis Comme nts [facility] MANUAL THER Routine 12/24/2009 4:44 PM CDT Cervical Pain TECH,1+REGIONS,EA 15 MIN ZZC THERAPEUTIC Routine 12/24/2009 4:44 PM CDT Cervical Pain EXERCISES documented in this encounter Visit Diagnoses Diagnosis Cervical pain - Primary Cervicalgia documented in this encounter Care Teams Ux Ui Designer Relationship Specialty Start Date End Date Selma Good APRN SENIOR BUYER PLANNER PCP - General 04/09/08 04/07/15 [address] [facility] [place] [address] documented as of this encounter
--- OUTSIDE RECORDS SUMMARY | 2022-02-06 10:23 | XMS_ITS | Encounter Summary ---
:1965 Author Organization [facility] Address [address] [place] [address]. [place] [address] Care Team Providers Name Role Phone Selma Good APRN EMERGENCY PLANNING AND RESPONSE MANAGER Primary Care Provider [phone] Encounter Details Date Type Department Care Team Description 11/22/2009 Historic Results [facility] Kylah Howard, [address] [place] [address] [address] [place], [place] [address] NEUROLOGY [phone] [address] [facility] [address] [place], [place] [address] (Wo rk) Social History [...] How often do you attend buddhist or uatsdin Patient refused 08/08/2019 services? Do [...] filedocumented in this encounter Care Teams Manager Latin Relationship Specialty Start Date End Date Selma Good APRN EMERGENCY PLANNING AND RESPONSE MANAGER PCP - General 04/09/08 04/07/15 [address] [facility] [place] [address] documented as of this encounter
--- OUTSIDE RECORDS SUMMARY | 2022-02-06 10:23 | XMS_ITS | Encounter Summary ---
:1965 Author Organization [place] Address [address] [place] [address] Care Team Providers Name Role Phone Selma Good APRN [facility] Primary Care Provider [phone] Reason for Visit [facility] Physical Therapy (Routine) - Closed Specialty Diagnoses / Procedures Referred By Contact Refer red To Contact Kylah Howard MD [facility] CLINIC OF NEURO LOGY MED [address] [facility] [address] [place] [address] Referral ID Status Reason Start Date Expiration Date Visits Requ ested Visits Authorized HP - NECK Closed 11/15/2009 06/10/2010 8 8 Encounter Details Date Type Department Care Team Description 12/28/2009 Therapy Visit [place] for Vadim Banda P Pietro Cervical Pain Athletic Medicine - Rehab Services (Prima ry Dx) [facility] Therapy [address] [place] [address] [place] [address] [place] [address] [phone] Social History Tobacco Use Types Packs/Day Years [...] How often do you attend sikhism or yazdanism Patient refused 08/08/2019 services? Do you belong to any clubs or organizations such as No 08/08/2019 sikhism groups, [employer]ss, fraternal or athletic groups, or school [...] Cervicalgia documented in this encounter Care Teams Registered Public Surveyor Relationship Specialty Start Date End Date Danilo-Selma Mccoy, PHYSICIST SOLID EARTH RECORDS ANALYSIS MANAGER PCP - General 04/09/08 04/07/[address] [facility] [address] [place], [place] [address] documented as of this encounter
--- OUTSIDE RECORDS SUMMARY | 2022-02-06 10:23 | XMS_ITS | Encounter Summary ---
:1965 Author Organization [place] Address [address] [place] [address] Care Team Providers Name Role Phone Selma Good APRN INSTRUCTOR PRIVATE Primary Care Provider [phone] Reason for Visit [facility] Physical Therapy (Routine) - Closed Specialty Diagnoses / Procedures Referred By Contact Refer red To Contact Rayo Rouse PA-C [facility] [place] [address] [address] [address] Referral ID Status Reason Start Date Expiration Date Visits Requ ested Visits Authorized HP - ELBOW Closed 03/22/2009 06/10/2009 17 15 Encounter Details Date Type Department Care Team Description 04/12/2009 Therapy Visit [place] for Graciela Dupree PT Lateral Epicondylitis Athletic Medicine - [address] of [place] (Primary Dx) [facility] [place] [address] Therapy [phone] [facility] Priscilla Sharpe (Work) [place] [address] Social History Tobacco Use Types Packs/Day Years [...] How often do you attend mandaen or yazidism Patient refused 08/08/2019 services? Do you belong to any clubs or organizations such as No 08/08/2019 mandaen groups, [employer]iess, fraternal or athletic groups, or school [...] Medicaid as primary or secondary insurance? NO BASE MANAGEMENT SPECIALIST documented in this encounter Plan of Treatment Not on filedocumented as of this encounter Procedures Procedure Name Priority Date/Time Associated Diagnosis Comme nts ZZC MANUAL THER Routine 04/12/2009 5:23 PM Lateral Epicondylit is of TECH,1+REGIONS,EA 15 DATABASE MANAGEMENT SPECIALIST [place] MIN ZZC THERAPEUTIC Routine 04/12/2009 5:23 PM Lateral Epicondylit is of EXERCISES DATABASE MANAGEMENT SPECIALIST [place] ZC ULTRASOUND THERAPY Routine 04/12/2009 5:23 PM Lateral Epic ondylitis of DATABASE MANAGEMENT SPECIALIST [place] ZZC HOT OR COLD PACKS Routine 04/12/2009 5:23 PM Lateral Epico ndylitis of THERAPY DATABASE MANAGEMENT SPECIALIST [place] documented in this encounter Visit Diagnoses Diagnosis Lateral epicondylitis of elbow - Primary Lateral epicondylitis of elbow documented in this encounter Care Teams Detail Sergeant Relationship Specialty Start Date End Date Danilo-Selma Mccoy, TRANSIT OPERATOR INSTRUCTOR PRIVATE PCP - General 04/09/08 04/07/[address] [facility] [address] [place], [place] [address] documented as of this encounter
--- OUTSIDE RECORDS SUMMARY | 2022-02-06 10:23 | XMS_ITS | Encounter Summary ---
:1965 Author Organization [place] Address [address] [place] [address] Care Team Providers Name Role Phone Selma Good APRN [facility] Primary Care Provider [phone] Reason for Visit [facility] Physical Therapy (Routine) - Closed Specialty Diagnoses / Procedures Referred By Contact Refer red To Contact Kylah Howard MD [facility] ATHLETIC [facility] CLINIC OF NEURO LOGY MED [address] [facility] [address] [place] [address] Referral ID Status Reason Start Date Expiration Date Visits Requ ested Visits Authorized HP - NECK Closed 11/15/2009 06/10/2010 8 8 Encounter Details Date Type Department Care Team Description 11/24/2009 Therapy Visit [place] for Sukhi Rust, P T Cervical Pain Athletic Medicine - [facility] [place] (Primary Dx) [facility] [address] [place] [address] [place] [address] [place] [phone] Social History Tobacco Use Types Packs/Day [...] How often do you attend latter-day or jain Patient refused 08/08/2019 services? Do you belong to any clubs or organizations such as No 08/08/2019 latter-day groups, FreshBookss, fraValveXchange or athletic groups, or school groups? How [...] Sheet for this information) Short term and senior living goals: (See Goal Flow Sheet for this [...] Cervicalgia documented in this encounter Care Teams Account Service Associate Relationship Specialty Start Date End Date Danilo-Selma Mccoy APRN PLUG PASTER PCP - General 04/09/08 04/07/15 [address] [facility] [place] [address] documented as of this encounter
--- OUTSIDE RECORDS SUMMARY | 2022-02-06 10:23 | XMS_ITS | Encounter Summary ---
:1965 Author Organization [facility] Address [address] [place] [address] Care Team Providers Name Role Phone Selma Good APRN HADOOP JAVA DEVELOPER Primary Care Provider [phone] Reason for Visit Reason Comments Cough cough, st x 4 days Encounter Details Date Type Department Care Team Description 11/17/2009 Office Visit [place] Ashli Montoya C ough (Primary Dx); Care ACUTE PHARYNGITIS [address] [place] [address] [place] [phone] [place] A[place] [phone] (Wo rk) Social History Tobacco Use Types [...] How often do you attend pentecostalism or restorationist Patient refused 08/08/2019 services? Do [...] cough and pharyngitis PLAN: [facility] for prednisone burst, albuterol MDI, and [...] completed using cuff size: large Blank [place] HEART SPECIALIST documented in this encounter Plan of [...] Component Value Ref Test Analysis Performed At [facility] gist Range Method Time Signature Specimen Throat GALLION Description [facility] Culture Micro No Beta GALLION Streptococcus [facility] isolated LAB Micro Report FINAL 11/19/2009 GALLION Status [facility] Specimen Anatomical Collection Method Collection Time Receive d Time (Source) Location / / Volume Laterality 11/17/2009 7:28 PM 0 7:33 CDT PM CDT Ashli Tamez MD LABORATORY Performing Organization Address City/[facility]/ZIP Code Phon e Number [facility] [address] [place] [address] [phone] [facility] STREP GROUP A ANTIGEN (RAPID) (11/17/2009 7:28 PM CDT) Component Value Ref Test Analysis Performed At [facility] Noveporter Range Method Time Signature Specimen Throat GALLION Description [facility] Rapid Strep A NEGATIVE: No Group A strepto coccal antigen detected by immunoassay, await GALLION Screen culture report. [facility] Micro Report FINAL 11/17/2009 GALLION Status [facility] Specimen Anatomical Collection Method Collection Time Receive d Time (Source) Location / / Volume Laterality 11/17/2009 7:28 PM 0 7:33 CDT PM CDT Ashli Tamez MD LABORATORY Performing Organization Address City/[facility]/ZIP Code Phon [facility] Number [facility] [address] [place] [address] [phone] [facility] documented in this encounter Visit Diagnoses Diagnosis Cough - Primary Acute pharyngitis documented in this encounter Care Teams Automobile Rental Clerk Relationship Specialty Start Date End Date Danilo-Selma Mccoy APRN HADOOP JAVA DEVELOPER PCP - General 04/09/08 04/07/15 [address] [facility] [place] [address] documented as of this encounter
--- OUTSIDE RECORDS SUMMARY | 2022-02-06 10:23 | XMS_ITS | Encounter Summary ---
:1965 Author Organization [place] Address [address] [place] [address] Care Team Providers Name Role Phone Selma Good APRN COMMERCIAL FINANCE MANAGER Primary Care Provider [phone] Reason for Visit [facility] Physical Therapy (Routine) - Closed Specialty Diagnoses / Procedures Referred By Contact Refer red To Contact Rayo Rouse PA-C [facility] [place] [address], [place] [address] Referral ID Status Reason Start Date Expiration Date Visits Requ ested Visits Authorized HP - ELBOW Closed 03/22/2009 06/10/2009 17 15 Encounter Details Date Type Department Care Team Description 06/01/2009 Therapy Visit [place] for Vadim Banda P T Lateral Epicondylitis Athletic Medicine - Rehab Services of Elisabet govea (Primary Dx) [facility] Therapy [address] [place] [address] [place] [address] [place] [address] [phone] Social History Tobacco Use Types Packs/Day Years [...] How often do you attend yarsani or samaritan Patient refused 08/08/2019 services? Do [...] Notes Margot Miller - 07/05/2009 5:28 PM PRODUCT SAFETY ADMINISTRATOR Addended by: MARGOT MILLER on: 07/05/2009 5:28:17 PM Modules accepted: Orders UCT SAFETY ADMINISTRATOR Margot Miller - 07/05/2009 5:27 PM CST Megan Choi completed therapy on 06-01-09. Please refer to discharge report. UCT SAFETY ADMINISTRATOR Vadim Banda - 06/01/2009 4:19 PM CST Please refer to the daily flowsheet for treatment today and total treatment time. Does this patient have Medicare or Medicaid as primary or secondary insurance? NO UCT SAFETY ADMINISTRATOR documented in this encounter Plan of Treatment Not on filedocumented as of this encounter Procedures Procedure Name Priority Date/Time Associated Diagnosis Comme nts ZC MANUAL THER Routine 06/01/2009 4:21 PM Lateral Epicondylit is of TECH,1+REGIONS,EA 15 PRODUCT SAFETY ADMINISTRATOR [place] MIN ZZC THERAPEUTIC Routine 06/01/2009 4:21 PM Lateral Epicondylit is of EXERCISES PRODUCT SAFETY ADMINISTRATOR [place] documented in this encounter Visit Diagnoses Diagnosis Lateral epicondylitis of elbow - Primary Lateral epicondylitis of elbow documented in this encounter Care Teams College Recruiter Relationship Specialty Start Date End Date Danilo-Selma Mccoy, SWAGE TOOLSETTER COMMERCIAL FINANCE MANAGER PCP - General 04/09/08 04/07/15 [address] [facility] [place] [address] documented as of this encounter
--- OUTSIDE RECORDS SUMMARY | 2022-02-06 10:23 | XMS_ITS | Encounter Summary ---
:1965 Author Organization [place] Address [address] [place] [address] Care Team Providers Name Role Phone Selma Good APRN [facility] Primary Care Provider [phone] Reason for Visit [facility] Physical Therapy (Routine) - Closed Specialty Diagnoses / Procedures Referred By Contact Refer red To Contact Kylah Howard MD [facility] ATHLETIC [facility] CLINIC OF NEURO LOGY MED [address] [facility] [address] [place] [address] Referral ID Status Reason Start Date Expiration Date Visits Requ ested Visits Authorized HP - NECK Closed 11/15/2009 06/10/2010 8 8 Encounter Details Date Type Department Care Team Description 12/06/2009 Therapy Visit [place] for Sukhi Rust, P T Cervical Pain Athletic Medicine - [facility] [place] (Primary Dx) [facility] [address] [place] [address] [place] [address] [place] [phone] Social History Tobacco Use Types Packs/Day [...] How often do you attend catholic or pentecostalism Patient refused 08/08/2019 services? Do you belong to any clubs or organizations such as No 08/08/2019 catholic groups, [employer], fraTapZen or athletic groups, or school groups? How [...] is being advanced to more complex exercises. OPERATIONS EXECUTIVE/ATC plan: N/A Please refer to the daily [...] Cervicalgia documented in this encounter Care Teams Research Epidemiologist Relationship Specialty Start Date End Date Selma Good APRN TECHNICAL ASSISTANCE CONSULTANT PCP - General 04/09/08 04/07/15 [address] [facility] [place] [address] documented as of this encounter
--- OUTSIDE RECORDS SUMMARY | 2022-02-06 10:23 | XMS_ITS | Encounter Summary ---
:1965 Author Organization [facility] Address [address] [place] [address] Care Team Providers Name Role Phone Selma Good STREETCAR CONDUCTOR GEODETIC SURVEYOR TECHNOLOGIST Primary Care Provider [phone] Reason for Referral Referral not Required - Closed Specialty Diagnoses / Procedures Referred By Contact Refer red To Contact Diagnoses Neck pain Selma Good [facility] STREETCAR CONDUCTOR GEODETIC SURVEYOR TECHNOLOGIST CNTR [address], [address] [place] [address] [place]UN[place] [phone] Referral ID Status Reason Start Date Expiration Date Visits Requ ested Visits Authorized [id number] Closed 01/12/2010 01/12/2010 1 1 - Closed Specialty Diagnoses / Procedures Referred By Contact Refer red To Contact Diagnoses Prediabetes Selma Good, STREETCAR CONDUCTOR GEODETIC SURVEYOR TECHNOLOGIST [address] [facility] [place] [address] Referral ID Status Reason Start Date Expiration Date Visits Requ ested Visits Authorized [id number] Closed 01/12/2010 01/12/2010 1 1 eferral not Required - Closed Specialty Diagnoses / Procedures Referred By Contact Refer red To Contact Diagnoses Insomnia Danilo-Steer, Selma J, NAYELY [facility] SLEEP STREETCAR CONDUCTOR [facility] 3[address] [facility] [address] [place] [address] [place] [id number] Referral ID Status Reason Start Date Expiration Date Visits Requ ested Visits Authorized [id number] Closed 01/12/2010 01/12/2010 1 1 Reason for Visit Reason Comments Physical Pre Visit Planning - Done Encounter Details Date Type Department Care Team Description 01/12/2010 Office Visit [facility] Flo[place], Routine Gen eral Medical Examination at a Health Care Facility (Primary Dx); [place]ino [place] APRN Insomnia; [address] [facility] Prediabetes; [place] [phone] [place] [address] Bruises Easily; [phone] [facility] Breast Cancer Screening; [place] [address] Neck Pain; [phone] Chronic Fatigue (Work) Social History Tobacco Use [...] How often do you attend rastafarian or worship Patient refused 08/08/2019 services? Do [...] Body Mass Index 37.58 07/12/2009 4:06 PM ROTOFORMER BACKTENDER documented in this encounter Patient Instructions Patient [...] ultrasound instead for screening. Sleep Issues: call [facility] at [phone], and schedule a sleep study. They will forward your results to me and afterward, schedule an appointment with me to discuss your results and a plan. DON'T FORGET: Please let Dr. Martinez know about your sleeping issues at neurology follow up. Prediabetes: Schedule an appointment with Arianna, the life educator to discuss dietary Breast center: Please call them and schedule a consultation appointment re: breast reduction surgeryin relation to chronic neck pain and headaches. Lab work results will be emailed by [employer] or mailed to your home. Your prescriptions [...] list. All Histories reviewed and updated in Clone. ROS: C: NEGATIVE for fever, chills, change [...] ultrasound instead for screening. Sleep Issues: call [facility] at [phone], and schedule a sleep study. They will forward your results to me and afterward, schedule an appointment with me to discuss your results and a plan. DON'T FORGET: Please let Dr. Martinez know about your sleeping issues at neurology follow up. Prediabetes: Schedule an appointment with Arianna, the life educator to discuss dietary Breast center: Please call them and schedule a consultation appointment re: breast reduction surgeryin relation to chronic neck pain and headaches. Lab work results will be emailed by [facility] or mailed to your home. Your prescriptions [...] is no t available. Selma Good APRN GEODETIC SURVEYOR TECHNOLOGIST REFERRAL CRP, INFLAMMATION (01/12/2010 5:00 PM CDT) Analysis Performed At Path logist Time Signature CRP Inflammation 7.9 0.0 - 8.0 [facility] mg/L [facility] Specimen Anatomical Collection Method Collection Time Receive d Time (Source) Location / / Volume Laterality 01/12/2010 5:00 PM 0 5:03 CDT PM CDT Selma Good APRN GEODETIC SURVEYOR TECHNOLOGIST LABORATORY Performing Organization Address City/State/ZIP Code Phon e Number [facility] [address] [place] [address] [facility] LABS VITAMIN D DEFICIENCY SCREENING (01/12/2010 5:00 PM CDT) Component Value Ref Test Analysis Performed At [facility] gist Range Method Time Signature 25 [place] Vit D2 <5 ug/L [facility] 25 [place] Vit D3 32 ug/L [facility] 25 [place] Vit D <37 30 - 75 [facility] total Season, race, dietary intake, and treatm ent affect the concentration of ug/L UNIVERSITY 76-nyyobiy-Aepooty D. Values may decrease during gordon er months and increase CAMPUS LABS during summer months. Values less than 30 ug/L may indicate Vitamin D deficiency. Specimen Anatomical Collection Method Collection Time Receive d Time (Source) Location / / Volume Laterality 01/12/2010 5:00 PM 0 5:03 CDT PM CDT Selma Good APRN GEODETIC SURVEYOR TECHNOLOGIST LABORATORY Performing Organization Address City/State/ZIP Code Phon e Number [facility] [address] [place] [address] [facility] PTT THROMBOPLAS TIME PARTIAL (01/12/2010 5:00 PM CDT) P athologist Signature PTT 27 22 - 37 sec [facility] Specimen Anatomical Collection Method Collection Time Receive d Time (Source) Location / / Volume Laterality 01/12/2010 5:00 PM 0 5:03 CDT PM CDT Selma Good APRN GEODETIC SURVEYOR TECHNOLOGIST LABORATORY Performing Organization Address City/State/ZIP Code Phon e Number [facility] [address] [place] [address] [facility] CBC WITH PLATELETS, DIFF (01/12/2010 5:00 PM CDT) Patholo gist Method Time Signature WBC 7.9 4.0 - [facility] 11.0 [facility] 10e9/L LAB RBC Count 4.51 3.8 - 5.2 [place] 10e12/L [facility] LAB Hemoglobin 13.6 11.7 - [facility] 15.7 g/dL [facility] LAB Hematocrit 41.7 35.0 - [facility] 47.0 % [facility] MCV 93 78 - 100 [place] fl [facility] MCH 30.2 26.5 - [facility] 33.0 pg [facility] MCHC 32.6 31.5 - [facility] 36.5 g/dL [facility] RDW 12.8 10.0 - [facility] 15.0 % [facility] Platelet Count 259 150 - 450 [place] 10e9/L [facility] Diff Method Automated [place] Method [facility] % Neutrophils 61 40 - 75 % [facility] % Lymphocytes 29 20 - 48 % [place] [facility] % Monocytes 8 0 - 12 % [facility] % Eosinophils 1 0 - 6 % [facility] % Basophils 1 0 - 2 % [facility] Absolute 4.8 1.6 - 8.3 [place] Neutrophil 10e9/L [facility] Absolute 2.3 0.8 - 5.3 [place] Lymphocytes 10e9/L [facility] Absolute 0.7 0.0 - 1.3 [place] Monocytes 10e9/L [facility] Absolute 0.1 0.0 - 0.7 [place] Eosinophils 10e9/L [facility] Absolute 0.0 0.0 - 0.2 [place] Basophils 10e9/L [facility] Specimen Anatomical Collection Method Collection Time Receive d Time (Source) Location / / Volume Laterality 01/12/2010 5:00 PM 0 5:03 CDT PM CDT Selma Good APRN GEODETIC SURVEYOR TECHNOLOGIST LABORATORY Performing Organization Address City/State/ZIP Code Phon e Number [facility] [address] [place] [address] [facility] TSH W/FREE T4 REFLEX (01/12/2010 5:00 PM CDT) P athologist Signature TSH 1.63 0.4 - 5.0 [place] [facility] mU/L [facility] Specimen Anatomical Collection Method Collection Time Receive d Time (Source) Location / / Volume Laterality 01/12/2010 5:00 PM 0 5:03 CDT PM CDT Selma Good APRN GEODETIC SURVEYOR TECHNOLOGIST LABORATORY Performing Organization Address City/State/ZIP Code Phon e Number [facility] [address] [place] [address] [facility] LAB (ABNORMAL) GLUCOSE (01/12/2010 5:00 PM CDT) P athologist Signature Glucose 149 (H) 60 - 99 [facility] mg/dL CLINIC LAB Specimen Anatomical Collection Method Collection Time Receive d Time (Source) Location / / Volume Laterality 01/12/2010 5:00 PM 0 5:03 CDT PM CDT Selma Good APRN, CNP LABORATORY Performing Organization Address City/State/ZIP Code Phon e Number [facility] [address] [facility] [place] [address] [facility] documented in this encounter Visit Diagnoses Diagnosis Routine general medical examination at a [facility] care facility - Primary Insomnia Insomnia, unspecified Prediabetes Other abnormal glucose Bruises easily Other symptoms involving skin and integu mentary tissues Neck pain Cervicalgia Chronic fatigue Other malaise and fatigue documented in this encounter Care Teams Cement Finisher Helper Relationship Specialty Start Date End Date Selma Good APRN CNP PCP - General 04/09/08 04/07/15 [address] [facility] [place] [address] documented as of this encounter
--- OUTSIDE RECORDS SUMMARY | 2022-02-06 10:23 | XMS_ITS | Encounter Summary ---
:1965 Author Organization [facility] Address [address] [place] [address] Care Team Providers Name Role Phone Selam Good APRN [facility] Primary Care Provider [phone] Reason for Visit [facility] Physical Therapy (Routine) - Closed Specialty Diagnoses / Procedures Referred By Contact Refer red To Contact Kylah Howard MD [facility] [address] [facility] [address] [place] [address] Referral ID Status Reason Start Date Expiration Date Visits Requ ested Visits Authorized HP - NECK Closed 11/15/2009 06/10/2010 8 8 Encounter Details Date Type Department Care Team Description 12/10/2009 Therapy Visit [place] for Sukhi Rust, P T Cervical Pain Athletic Medicine - [facility] P[place] (Primary Dx) [facility] Physical [address] [place] [address] [place] [address] [place] [id number] Social History Tobacco Use Types Packs/Day [...] organizations such as No 08/08/2019 lutheran groups, SocialTaggs, fraPlayviews or athletic groups, or school groups? How [...] Associated Diagnosis Comme [facility] ZC MANUAL THER Routine 12/10/2009 5:35 PM CDT Cervical Pain TECH,1+REGIONS,EA 15 MIN ZZC THERAPEUTIC Routine 12/10/2009 5:35 PM CDT Cervical Pain EXERCISES documented in this encounter Visit Diagnoses Diagnosis Cervical pain - Primary Cervicalgia documented in this encounter Care Teams Over The Road Driver Relationship Specialty Start Date End Date Danilo-Selma Mccoy, REVIEW TRAINER EQUITY MANAGER PCP - General 04/09/08 04/07/[address] [facility] [place] [address] documented as of this encounter
--- OUTSIDE RECORDS SUMMARY | 2022-02-06 10:23 | XMS_ITS | Encounter Summary ---
:1965 Author Organization [facility] Address [address] [place] [address] Care Team Providers Name Role Phone Selma Good APRN FLAT KNITTER HELPER Primary Care Provider [phone] Reason for Visit [facility] Physical Therapy (Routine) - Closed Specialty Diagnoses / Procedures Referred By Contact Refer red To Contact Rayo Rouse PA-C [facility] [place] [address] [address] [place] [address] Referral ID Status Reason Start Date Expiration Date Visits Requ ested Visits Authorized HP - ELBOW Closed 03/22/2009 06/10/2009 17 15 Encounter Details Date Type Department Care Team Description 05/17/2009 Therapy Visit [place] for Graciela Dupree PT Lateral Epicondylitis Athletic Medicine - [address] of Elbow (Primary Dx) [facility] Physical [place] [address] Therapy [phone] [facility] Priscilla Sharpe (Work) [place] [address] Social History Tobacco Use Types Packs/Day Years [...] How often do you attend hoahaoism or yazidism Patient refused 08/08/2019 services? Do [...] Medicaid as primary or secondary insurance? NO GE DECKHAND documented in this encounter Plan of Treatment Not on filedocumented as of this encounter Procedures Procedure Name Priority Date/Time Associated Diagnosis Comme nts [facility] MANUAL THER Routine 05/17/2009 5:01 PM Lateral Epicondylit is of TECH,1+REGIONS,EA 15 DREDGE DECKHAND Elbow MIN ZZC THERAPEUTIC Routine 05/17/2009 5:01 PM Lateral Epicondylit is of EXERCISES DREDGE DECKHAND Elbow documented in this encounter Visit Diagnoses Diagnosis Lateral epicondylitis of elbow - Primary Lateral epicondylitis of elbow documented in this encounter Care Teams Blanket Winder Operator Relationship Specialty Start Date End Date Danilo-Selma Mccoy, SIGN MANUFACTURER FLAT KNITTER HELPER PCP - General 04/09/08 04/07/[address] [facility] [address] [address] [place], [place] [address] documented as of this encounter
--- OUTSIDE RECORDS SUMMARY | 2022-02-06 10:23 | XMS_ITS | Encounter Summary ---
:1965 Author Organization [facility] Address [address] [place] [address] Care Team Providers Name Role Phone Selma Good APRN SUPPLY CHAIN LOGISTICS MANAGER Primary Care Provider [phone] Reason for Visit [facility] Physical Therapy (Routine) - Closed Specialty Diagnoses / Procedures Referred By Contact Refer red To Contact Rayo Rouse PA-C [facility] [place] [address] [address] [place] [address] Referral ID Status Reason Start Date Expiration Date Visits Requ ested Visits Authorized HP - ELBOW Closed 03/22/2009 06/10/2009 17 15 Encounter Details Date Type Department Care Team Description 03/29/2009 Therapy Visit [place] for Graciela Dupree PT Lateral Epicondylitis Athletic Medicine - [address] of Elbow (Primary Dx) [facility] Physical [place] [address] Therapy [phone] [facility] Priscilla Sharpe (Work) [place] [address] Social History Tobacco Use Types Packs/Day Years [...] How often do you attend anglican or restorationism Patient refused 08/08/2019 services? Do [...] elbow documented in this encounter Care Teams Investment Trader Relationship Specialty Start Date End Date Danilo-Selma Mccoy, BALER SUPPLY CHAIN LOGISTICS MANAGER PCP - General 04/09/08 04/07/[address] [facility] [place] [address] documented as of this encounter
--- OUTSIDE RECORDS SUMMARY | 2022-02-06 10:23 | XMS_ITS | Encounter Summary ---
:1965 Author Organization [facility] Address [address] [place] [address] Care Team Providers Name Role Phone Selma Good APRN [facility] Primary Care Provider [phone] Reason for Visit [facility] Physical Therapy (Routine) - Closed Specialty Diagnoses / Procedures Referred By Contact Refer red To Contact Kylah Howard MD [facility] OF NEURO LOGY MED [address] [facility] [address] [place] [address] Referral ID Status Reason Start Date Expiration Date Visits Requ ested Visits Authorized HP - NECK Closed 11/15/2009 06/10/2010 8 8 Encounter Details Date Type Department Care Team Description 12/20/2009 Therapy Visit [place] for Sukhi Rust, P T Cervical Pain Athletic Medicine - [facility] Pino (Primary Dx) [facility] Physical [address] [place] [address] [place] [address] [place] [phone] Social History Tobacco Use Types Packs/Day [...] How often do you attend gnosticist or mormonism Patient refused 08/08/2019 services? Do you belong to any clubs or organizations such as No 08/08/2019 gnosticist groups, Kilopasss, fraAmicrobe or athletic groups, or school groups? How [...] Priority Date/Time Associated Diagnosis Comme [facility] ZC MANUAL THER Routine 12/20/2009 4:39 PM CDT Cervical Pain TECH,1+REGIONS,EA 15 MIN ZZC THERAPEUTIC Routine 12/20/2009 4:39 PM CDT Cervical Pain EXERCISES documented in this encounter Visit Diagnoses Diagnosis Cervical pain - Primary Cervicalgia documented in this encounter Care Teams Felling Bucking Supervisor Relationship Specialty Start Date End Date Danilo-Selma Mccoy, ROAD EQUIPMENT OPERATOR SAND ANALYST PCP - General 04/09/08 04/07/15 36[address] [facility] [place] [address] documented as of this encounter
--- OUTSIDE RECORDS SUMMARY | 2022-02-06 10:23 | XMS_ITS | Encounter Summary ---
:1965 Author Organization [facility] Address [address] [place] [address] Care Team Providers Name Role Phone Selma Good APRN LOCK CORNER MACHINE OPERATOR Primary Care Provider [phone] Reason for Visit Reason Onset Date Comments Erroneous encounter-disregard 04/14/2009 Encounter Details Date Type Department Care Team Description 04/14/2009 Refill [facility] Eag Selma Anthony Erroneous [address] JSEAN CNP encounter-disregard [place] [phone] 92[address] [facility] [phone] [facility] [place] [address] (Wo rk) Social History [...] How often do you attend yarsanism or spiritism Patient refused 08/08/2019 services? Do [...] LRF 01/17/09 Omeprazole # 90 x 3. E UP WORKER documented in this encounter Plan of Treatment Not on filedocumented as of this encounter Visit Diagnoses Diagnosis GERD (gastroesophageal reflux disease) - Primary Esophageal reflux documented in this encounter Care Teams Soccer Referee Relationship Specialty Start Date End Date Danilo-Selma Mccoy APRN LOCK CORNER MACHINE OPERATOR PCP - General 04/09/08 04/07/15 [address] [facility] [place] [address] documented as of this encounter
--- OUTSIDE RECORDS SUMMARY | 2022-02-06 10:23 | XMS_ITS | Encounter Summary ---
:1965 Author Organization [facility] Address [address] [place] [address] Care Team Providers Name Role Phone Selma Good APRN WEIGHT SHIFTER Primary Care Provider [phone] Reason for Visit [facility] Physical Therapy (Routine) - Closed Specialty Diagnoses / Procedures Referred By Contact Refer red To Contact Rayo Rouse PA-C [facility] [place] [address] [place], [place] [address] Referral ID Status Reason Start Date Expiration Date Visits Requ ested Visits Authorized HP - ELBOW Closed 03/22/2009 06/10/2009 17 15 Encounter Details Date Type Department Care Team Description 04/01/2009 Therapy Visit [place] for Vadim Banda P T Lateral Epicondylitis Athletic Medicine - [facility] (Primary Dx) [facility] Sports [facility]. Therapy [address] [place] [address] [place] [address] [place] [address] [phone] Social History Tobacco Use Types Packs/Day Years [...] How often do you attend judaism or christian Patient refused 08/08/2019 services? Do you belong to any clubs or organizations such as No 08/08/2019 judaism groups, BuildingOpss, fraternal or athletic groups, or school groups? [...] elbow documented in this encounter Care Teams Childcare Center Administrator Relationship Specialty Start Date End Date Danilo-Selma Mccoy, HEAD OF STRATEGY WEIGHT SHIFTER PCP - General 04/09/08 04/07/[address] [facility] [address] [place], [place] [address] documented as of this encounter
--- OUTSIDE RECORDS SUMMARY | 2022-02-06 10:23 | XMS_ITS | Encounter Summary ---
:1965 Author Organization [facility] Address [address] [place] [address] Care Team Providers Name Role Phone Selma Good APRN COOK PRESSURE Primary Care Provider [phone] Reason for Visit [facility] Physical Therapy (Routine) - Closed Specialty Diagnoses / Procedures Referred By Contact Refer red To Contact Rayo Rouse PA-C [facility] [place] [address] [address] [place] [address] Referral ID Status Reason Start Date Expiration Date Visits Requ ested Visits Authorized HP - ELBOW Closed 03/22/2009 06/10/2009 17 15 Encounter Details Date Type Department Care Team Description 04/19/2009 Therapy Visit [place] for Graciela Dupree PT Lateral Epicondylitis Athletic Medicine - [address] of Elbow (Primary Dx) [facility] Physical [place] [address] Therapy [phone] [facility] Priscilla Sharpe (Work) [place] [address] Social History Tobacco Use Types Packs/Day Years [...] Medicaid as primary or secondary insurance? NO CTOR HEMATOLOGY documented in this encounter Plan of Treatment Not on filedocumented as of this encounter Procedures Procedure Name Priority Date/Time Associated Diagnosis Comme nts Z MANUAL THER Routine 04/19/2009 5:30 PM Lateral Epicondylit is of TECH,1+REGIONS,EA 15 DIRECTOR HEMATOLOGY Elbow MIN ZZC THERAPEUTIC Routine 04/19/2009 5:30 PM Lateral Epicondylit is of EXERCISES DIRECTOR HEMATOLOGY Elbow Z ULTRASOUND THERAPY Routine 04/19/2009 5:30 PM Lateral Epic ondylitis of DIRECTOR HEMATOLOGY Elbow documented in this encounter Visit Diagnoses Diagnosis Lateral epicondylitis of elbow - Primary Lateral epicondylitis of elbow documented in this encounter Care Teams Carbon Dioxide Operator Relationship Specialty Start Date End Date Danilo-Selma Mccoy, SIGN LANGUAGE INSTRUCTOR COOK PRESSURE PCP - General 04/09/08 04/07/15 [address] [facility] [place] [address] documented as of this encounter
--- OUTSIDE RECORDS SUMMARY | 2022-02-06 10:23 | XMS_ITS | Encounter Summary ---
:1965 Author Organization [facility] Address [address] [place] [address] Care Team Providers Name Role Phone Selma Good METALSMITH APPRENTICE CHEMICAL PROCESSING EQUIPMENT REPAIRER Primary Care Provider [phone] Encounter Details Date Type Department Care Team Description 03/15/2009 Orders Only [facility] Eag Selma Anthony, [address] [facility] METALSMITH APPRENTICE CHEMICAL PROCESSING EQUIPMENT REPAIRER [place] [phone] 78[address] [facility] [phone] [facility] [place] [address] (Wo rk) [...] How often do you attend voodoo or yazdanism Patient refused 08/08/2019 services? Do [...] Procedure Name Priority Date/Time Associated Diagnosis Comme [facility] NCS MOTOR W/O F-WAVE, EACH Routine 03/08/2009 NERVE documented in this encounter Results MOTOR NERVE CONDUCT TEST (03/08/2009) Specimen (Source) Anatomical Location Collection Method / Collectio n Time Received Time / Laterality Volume 03/08/2009 Narrative This result has an attachment that is no t available. Selma Good APRN CHEMICAL PROCESSING EQUIPMENT REPAIRER PROCEDURES documented in this encounter Visit Diagnoses Not on filedocumented in this encounter Care Teams Generation Manager Relationship Specialty Start Date End Date Selma Good APRN CHEMICAL PROCESSING EQUIPMENT REPAIRER PCP - General 04/09/08 04/07/[address] [facility] [address] documented as of this encounter
--- OUTSIDE RECORDS SUMMARY | 2022-02-06 10:23 | XMS_ITS | Encounter Summary ---
:1965 Author Organization [place] Address [address] [place] [address] Care Team Providers Name Role Phone Selma Good APRN FACT CHECKER Primary Care Provider [phone] Reason for Visit [facility] Physical Therapy (Routine) - Closed Specialty Diagnoses / Procedures Referred By Contact Refer red To Contact Rayo Rouse PA-C [facility] [place] [address] [place] [address] Referral ID Status Reason Start Date Expiration Date Visits Requ ested Visits Authorized HP - ELBOW Closed 03/22/2009 06/10/2009 17 15 Encounter Details Date Type Department Care Team Description 03/24/2009 Therapy Visit [place] for Graciela Dupree PT Lateral Epicondylitis Athletic Medicine - [address] of Elbow (Primary Dx) [facility] [place] [address] Therapy [phone] [facility] Priscilla Sharpe (Work) [place] [address] Social History Tobacco Use Types Packs/Day Years [...] How often do you attend mandaen or restoration Patient refused 08/08/2019 services? Do [...] elbow documented in this encounter Care Teams Poultry Cutter Relationship Specialty Start Date End Date Danilo-Selma Mccoy, LEATHER PRODUCTS SUPERVISOR FACT CHECKER PCP - General 04/09/08 04/07/15 [address] [facility] [place] [address] documented as of this encounter
--- OUTSIDE RECORDS SUMMARY | 2022-02-06 10:23 | XMS_ITS | Encounter Summary ---
:1965 Author Organization [place] Address [address] [place] [address] Care Team Providers Name Role Phone Selma Good APRN [facility] Primary Care Provider [phone] Reason for Visit [facility] Physical Therapy (Routine) - Closed Specialty Diagnoses / Procedures Referred By Contact Refer red To Contact Kylah Howard MD [facility] [address] [facility] [address] [place] [address] Referral ID Status Reason Start Date Expiration Date Visits Requ ested Visits Authorized HP - NECK Closed 11/15/2009 06/10/2010 8 8 Encounter Details Date Type Department Care Team Description 12/17/2009 Therapy Visit [place] for Vadim Banda P Pietro Cervical Pain Athletic Medicine - Rehab Services (Prima ry Dx) [facility] Therapy [address] [place] [address] [place] [address] DAV[place] [address] [phone] Social History Tobacco Use Types Packs/Day Years [...] How often do you attend mormonism or denominational Patient refused 08/08/2019 services? Do you belong to any clubs or organizations such as No 08/08/2019 mormonism groups, [employer], fraternal or athletic groups, or school groups? [...] is being advanced to more complex exercises. CAT SCANNER OPERATOR/ATC plan: N/A Please refer to the daily [...] Cervicalgia documented in this encounter Care Teams Clinical Rehabilitation Coordinator Relationship Specialty Start Date End Date Selma Good, SEAN WIRELESS ENGINEER PCP - General 04/09/08 04/07/[address] [facility] [address] [place], [place] [address] documented as of this encounter
--- OUTSIDE RECORDS SUMMARY | 2022-02-06 10:23 | XMS_ITS | Encounter Summary ---
:1965 Author Organization [place] Address [address] [place] [address] Care Team Providers Name Role Phone Selma Good APRN [facility] Primary Care Provider [phone] Reason for Referral Referral not Required - Closed Specialty Diagnoses / Procedures Referred By Contact Refer red To Contact Diagnoses Pain in the foot Plantar fascial fibromatosis Rayo Whitehead DPM [facility] [address] [facility] Yeyo [address] [place] [address] Referral ID Status Reason Start Date Expiration Date Visits Requ ested Visits Authorized [id number] Closed 12/31/2009 12/31/2009 1 1 Reason for Visit Reason Comments Musculoskeletal Problem right foot arch and heel valdo n. Encounter Details Date Type Department Care Team Description 12/31/2009 Office Visit [facility] Rayo Whitehead Pain in the Foot (Primary Dx); Pino Jacome DPM Plantar Fascial Fibromatosis [address] [place] [address] E [phone] Y[address] [place], [place] [address] Social History Tobacco Use Types [...] How often do you attend mormonism or rastafarian Patient refused 08/08/2019 services? Do you belong to any clubs or organizations such as No 08/08/2019 mormonism groups, [employer], [employer] or athletic groups, or school groups? How [...] using cuff size: large right Liana Roelchris, FERTILIZER MIXER documented in this encounter Plan of Treatment Scheduled Orders Name Type Priority Associated Diagnoses Order S chedule XR Foot Right G/E 3 Views Imaging Or dered: 09/18/2012 documented as of this encounter Procedures Procedure Name Priority Date/Time Associated Diagnosis Comme [facility] Z RT X-RAY FOOT Routine 12/31/2009 [...] fibromatosis documented in this encounter Care Teams Quality Assurance Test Program Manager Relationship Specialty Start Date End Date Danilo-Selma Mccoy, CLERK CHECKER COMPLIANCE ENGINEER PRODUCTS PCP - General 04/09/08 04/07/15 [address] [facility] [place] [address] documented as of this encounter
--- OUTSIDE RECORDS SUMMARY | 2022-02-06 10:23 | XMS_ITS | Encounter Summary ---
:1965 Author Organization [place] Address [address] [place] [address] Care Team Providers Name Role Phone Selma Good APRN CISCO CONSULTANT Primary Care Provider [phone] Reason for Visit [facility] Physical Therapy (Routine) - Closed Specialty Diagnoses / Procedures Referred By Contact Refer red To Contact Rayo Rouse PA-C [facility] [place] [address] [place] [address] Referral ID Status Reason Start Date Expiration Date Visits Requ ested Visits Authorized HP - ELBOW Closed 03/22/2009 06/10/2009 17 15 Encounter Details Date Type Department Care Team Description 04/16/2009 Therapy Visit [place] for Graciela Dupree PT Lateral Epicondylitis Athletic Medicine - [address] of Elbow (Primary Dx) [facility] [place] [address] Therapy [phone] [facility] Priscilla Sharpe (Work) DAVID [place] [address] Social History Tobacco Use Types Packs/Day Years [...] Medicaid as primary or secondary insurance? NO TRICIAN CONTROL EQUIPMENT documented in this encounter Plan of Treatment Not on filedocumented as of this encounter Procedures Procedure Name Priority Date/Time Associated Diagnosis Comme nts Z MANUAL THER Routine 04/16/2009 4:31 PM Lateral Epicondylit is of TECH,1+REGIONS,EA 15 ELECTRICIAN CONTROL EQUIPMENT Elbow MIN ZZC THERAPEUTIC Routine 04/16/2009 4:31 PM Lateral Epicondylit is of EXERCISES ELECTRICIAN CONTROL EQUIPMENT Elbow Z ULTRASOUND THERAPY Routine 04/16/2009 4:31 PM Lateral Epic ondylitis of ELECTRICIAN CONTROL EQUIPMENT Elbow documented in this encounter Visit Diagnoses Diagnosis Lateral epicondylitis of elbow - Primary Lateral epicondylitis of elbow documented in this encounter Care Teams Guest Services Lead Relationship Specialty Start Date End Date Danilo-Selma Mccoy, STEEL RULE DIE MAKER APPRENTICE CISCO CONSULTANT PCP - General 04/09/08 04/07/15 [address] [facility] [place] [address] documented as of this encounter
--- OUTSIDE RECORDS SUMMARY | 2022-02-06 10:23 | XMS_ITS | Encounter Summary ---
:1965 Author Organization [place] Address [address] [place] [address] Care Team Providers Name Role Phone Selma Good APRN PALLET STONE INSERTER Primary Care Provider [phone] Reason for Visit [facility] Physical Therapy (Routine) - Closed Specialty Diagnoses / Procedures Referred By Contact Refer red To Contact Rayo Rouse PA-C [facility] [place] [address] [address] [address] Referral ID Status Reason Start Date Expiration Date Visits Requ ested Visits Authorized HP - ELBOW Closed 03/22/2009 06/10/2009 17 15 Encounter Details Date Type Department Care Team Description 04/08/2009 Therapy Visit [place] for Vadim Banda P T Lateral Epicondylitis Athletic Medicine - Rehab Services of Elisabet govea (Primary Dx) [facility] Therapy [address] [place] [address] DAV[place] [address] DAV[place] Se[place] [address] [phone] Social History Tobacco Use Types Packs/Day Years [...] How often do you attend worship or quaker Patient refused 08/08/2019 services? Do you belong to any clubs or organizations such as No 08/08/2019 worship groups, [employer], fraternal or athletic groups, or school [...] elbow documented in this encounter Care Teams Sample Shoe Inspector And Reworker Relationship Specialty Start Date End Date Danilo-Selma Mccoy, CHEMISTRY ACCOUNT MANAGER PALLET STONE INSERTER PCP - General 04/09/08 04/07/[address] [facility] [address] [place], DAV[place] [address] documented as of this encounter
--- OUTSIDE RECORDS SUMMARY | 2022-02-06 10:23 | XMS_ITS | Encounter Summary ---
:1965 Author Organization [place] Address [address] [place] [address]. [place] [address] Care Team Providers Name Role Phone Selma Good APRN ENTRY OPERATOR Primary Care Provider [phone] Encounter Details Date Type Department Care Team Description 06/28/2009 Historic Results [facility] Kylah Howard, [address] [place] [address] [address] [place], [place] [address] NEUROLOGY [phone] [address] [facility] [address] [place], [place] [address] (Wo rk) Social History [...] How often do you attend hoahaoism or confucianism Patient refused 08/08/2019 services? Do [...] 06/28/2009 10:45 AM Results for this SCREENING FREELANCE MAKEUP ARTIST procedure are i n the results section. documented in this encounter Results (ABNORMAL) Vitamin D deficiency screening (06/28/2009 10:45 AM FREELANCE MAKEUP ARTIST) P athologist Signature 25 OH Vit D2 <5 ug/L MISYS 25 OH Vit D3 21 ug/L MISYS 25 OH Vit D <26 (L) 30 - 75 MISYS total ug/L Comment: Season, race, dietary intake, and treatm ent affect the concentration of 80-yhsxmmv-Rcpyrtf D. Values may decrea se during winter months and increase during summer months. Values less than 30 ug/L may indicate Vitamin D deficiency. Specimen Anatomical Collection Method Collection Time Receive d Time (Source) Location / / Volume Laterality 06/28/2009 10:45 06/28/2009 AM FREELANCE MAKEUP ARTIST 10:42 AM FREELANCE MAKEUP ARTIST Kylah Howard MD LAB - BLOOD ORDERABLES Performing Organization Address City/State/ZIP Code Phon e Number MISYS documented in this encounter Visit Diagnoses Not on filedocumented in this encounter Care Teams Incident Coordinator Relationship Specialty Start Date End Date Danilo-Selma Mccoy, COURT CRIER ENTRY OPERATOR PCP - General 04/09/08 04/07/15 [address] [facility] DAV[place] [address] documented as of this encounter
--- OUTSIDE RECORDS SUMMARY | 2022-02-06 10:24 | XMS_ITS | Encounter Summary ---
:1965 Author Organization [place] Address [address] [place] [address]. [place] [address] Care Team Providers Name Role Phone Selma Good APRN [employer] SPANISH TEACHER Primary Care Provider [phone] Encounter Details Date Type Department Care Team Description 02/24/2009 Historic Results [facility] Kylah Howard, [address] [place] [address] [address] [place], [place] [address] NEUROLOGY [phone] [address] [facility] [address] [place], [place] [address] (Wo rk) Social History [...] How often do you attend spiritism or buddhism Patient refused 08/08/2019 services? Do [...] LAB - BLOOD ORDERABLES Performing Organization Address [facility] Code Phon e Number MISYS Rheumatoid factor (02/24/2009 2:38 PM CDT) athologist Signature Rheumatoid <7 0 - 14 MISYS Factor IU/mL Specimen Anatomical Collection Method Collection Time Receive d Time (Source) Location / / Volume Laterality 02/24/2009 2:38 PM 9 2:32 CDT PM CDT Kylah Howard MD LAB - BLOOD ORDERABLES Performing Organization Address [facility] Phon e Number MISYS Erythrocyte sedimentation rate auto (02/24/2009 2:38 PM CDT) athologist Signature Sed Rate 13 0 - 20 mm/h MISYS Specimen Anatomical Collection Method Collection Time Receive d Time (Source) Location / / Volume Laterality 02/24/2009 2:38 PM 9 2:32 CDT PM CDT Kylah Howard MD LAB - BLOOD ORDERABLES Performing Organization Address [facility] Phon e Number MISYS Lyme IgG and IgM screen (02/24/2009 2:38 PM CDT) [facility] Method Time Signature Specimen Serum MISYS [...] LAB - BLOOD ORDERABLES Performing Organization Address [facility] Code Phon e Number MISYS documented in this encounter Visit Diagnoses Not on filedocumented in this encounter Care Teams Full Stack Software Engineer Relationship Specialty Start Date End Date Selma Good, REVENUE AUDIT CLERK [employer] SPANISH TEACHER PCP - General 04/09/08 04/07/15 [address] [facility] [address] A[place], DAV[place] [address] documented as of this encounter
--- OUTSIDE RECORDS SUMMARY | 2022-02-06 10:24 | XMS_ITS | Encounter Summary ---
:1965 Author Organization [place] Address [address] [place] [address] Care Team Providers Name Role Phone Unavailable Primary Care Provider Unavailable Encounter Details Date Type Department Care Team Description 02/19/2006 Results Only [facility] Hamzah Kirkland MD [facility] Radiology Results HAMZAH KIRKLAND MD PA [address] [facility] 7[address] [place] [address] (Wo rk) Social History Tobacco [...]
--- OUTSIDE RECORDS SUMMARY | 2022-02-06 10:24 | XMS_ITS | Encounter Summary ---
:1965 Author Organization [place] Address [address] [place] [address] Care Team Providers Name Role Phone Selma Good APRN ASSURANCE ASSISTANT Primary Care Provider [phone] Encounter Details Date Type Department Care Team Description 04/21/2008 Orders Only [facility] Eag an Routine General Medical [address] [facility] [place] [address] Care Facility [phone] Social History Tobacco Use Types Packs/Day Years [...] How often do you attend quaker or confucianist Patient refused 08/08/2019 services? Do [...] General R esults for this METABOLIC PANEL DIGITAL CARTOGRAPHER Medical Examination proce dure are in at a Health Care the results Facility section. CL AFF A.M.A. LIPID Routine 04/21/2008 8:01 AM Routine General Results for this PANEL DIGITAL CARTOGRAPHER Medical Examination procedur e are in at a [facility] the results Facility section. documented in this encounter Results (ABNORMAL) A.M.A. COMPREHENSIVE MET.PANEL (04/21/2008 8:01 AM DIGITAL CARTOGRAPHER) athologist Signature Sodium 142 133 - 144 [facility]L [facility] Potassium 3.8 3.4 - 5.3 [facility] mmol/L [facility] Chloride 102 94 - 109 [facility] mmol/L [facility] Carbon Dioxide 27 20 - 32 [facility] mmol/L [facility] Anion Gap 12 6 - 17 [facility] mmol/L [facility] Glucose 126 (H) 60 - 99 [place] mg/dL [facility] Urea Nitrogen 9 5 - 24 [place] mg/dL [facility] Creatinine 0.66 0.52 - [place] 1.04 mg/dL [facility] Comment: New IDMS-traceable calibration beginning 10/10/07 GFR Estimate >90 >60 mL/min/1.7m2 [place] E AGAN [facility] GFR Estimate If Black >90 >60 mL/min/1.7m2 [facility] Calcium 9.0 8.5 - 10.4 mg/dL [facility] Bilirubin Total 0.5 0.2 - 1.3 mg/dL [facility] Albumin 3.6 (L) 3.9 - 5.1 g/dL [facility] Comment: Reference range changed on 02/10. Protein Total 7.2 6.8 - 8.8 g/dL [place] EA [facility] Comment: As of 07, reference range reflects plasma specimen type. Alkaline Phosphatase 129 40 - 150 U/L [facility] ALT 24 0 - 50 U/L [facility] LAB AST 21 0 - 45 U/L [facility] LAB Specimen Anatomical Collection Method Collection Time Receive d Time (Source) Location / / Volume Laterality 04/21/2008 8:01 AM 8 8:03 DIGITAL CARTOGRAPHER AM DIGITAL CARTOGRAPHER Selma Good APRN ASSURANCE ASSISTANT LABORATORY Performing Organization Address City/State/ZIP Code Phon e Number [facility] [address] [place] [address] [facility] (ABNORMAL) A.M.A. LIPID PANEL (04/21/2008 8:01 AM DIGITAL CARTOGRAPHER) P athologist Signature Cholesterol 190 0 - 200 [facility] mg/dL CLINIC LAB Comment: LDL Cholesterol is [...] Triglycerides 155 (H) 0 - 150 mg/dL [facility] HDL Cholesterol 34 (L) 50 - 110 mg/dL [facility] LDL Cholesterol Calculated 125 0 - 129 mg/dL [facility] Comment: LDL Cholesterol is the primary guide to therapy: LDL-cholesterol goal in high risk patients is <100 mg/dL and in very high risk patients is <70 mg/dL. VLDL-Cholesterol 31 (H) 0 - 30 mg/dL [facility] Cholesterol/HDL Ratio 5.6 (H) 0.0 - 5.0 [facility] Specimen Anatomical Collection Method Collection Time Receive d Time (Source) Location / / Volume Laterality 04/21/2008 8:01 AM 8 8:03 DIGITAL CARTOGRAPHER AM DIGITAL CARTOGRAPHER Selma Good APRN, CNP LABORATORY Performing Organization Address City/State/ZIP Code Phon e Number [facility] [address] [facility] [place] [address] [facility] documented in this encounter Visit Diagnoses Diagnosis Routine general medical examination at a health care facility documented in this encounter Care Teams Medical Laboratory Specialist Relationship Specialty Start Date End Date Selma Good APRN ASSURANCE ASSISTANT PCP - General 04/09/08 04/07/15 [address] [facility] [place] [address] documented as of this encounter
--- OUTSIDE RECORDS SUMMARY | 2022-02-06 10:24 | XMS_ITS | Encounter Summary ---
:1965 Author Organization [place] Address [address] [place] [address] Care Team Providers Name Role Phone Unavailable Primary Care Provider Unavailable Encounter Details Date Type Department Care Team Description 02/19/2006 Discharge Summary Hamzah Ramos M D (Machine Buffer) HAMZAH RAMOS MD PA [address] [facility] [address] [place] [address] (Wo rk) Social History Tobacco [...] How often do you attend restoration or adventism Patient refused 08/08/2019 services? Do [...] Notes Hamzah Ramos - 07/05/2006 9:14 AM PUBLICITY DIRECTOR FINAL FINAL DISCHARGE DIAGNOSES: Intractable pain, discogenic [...] LEXIS Name: PADMINI CHOI MRN: [id number] Account: [id number] : 1965 Admit Date: Discharge Date: 02/24/2006 Document: [id number] cc: Jose Colin MD ICITY DIRECTOR documented in this encounter Plan of Treatment Not on filedocumented as of this encounter Visit Diagnoses Not on filedocumented in this encounter
--- OUTSIDE RECORDS SUMMARY | 2022-02-06 10:24 | XMS_ITS | Encounter Summary ---
:1965 Author Organization [place] Address [address] [place] [address] Care Team Providers Name Role Phone Selma Good APRN FLOUR INSPECTOR Primary Care Provider [phone] Encounter Details Date Type Department Care Team Description 02/21/2006 Historic Results INTERFACED REPORT Zachary Kirkland MD JOHN STARK MD PA [address] [facility] [address] [place] [address] (Wo rk) Social History Tobacco [...] on filedocumented in this encounter Care Teams Canal Superintendent Relationship Specialty Start Date End Date Danilo-Selma Mccoy APRN FLOUR INSPECTOR PCP - General 04/09/08 04/07/[address] [facility] [address] ANAYA, DAVID [id number] documented as of this encounter
--- OUTSIDE RECORDS SUMMARY | 2022-02-06 10:24 | XMS_ITS | Encounter Summary ---
:1965 Author Organization [place] Address [address] [place] [address] Care Team Providers Name Role Phone Unavailable Primary Care Provider Unavailable Encounter Details Date Type Department Care Team Description 02/19/2006 Operative Report Cora Galvan MD (Ct Technician) XXX RETIRED XXX [address] [facility] [address] [place], [place] [address] (Wo rk) Social History Tobacco [...] How often do you attend amish or baptism Patient refused 08/08/2019 services? Do [...] by: CORA GALVAN MD MT: armin Document: [id number] LCN: [id number] DSC: Name: MR#: : Procedure Date: PADMINI CHOI [id number] 1965 02/19/2006 OPERATIVE REPORT Page 2 of 1 documented in this encounter Plan of Treatment Not on filedocumented as of this encounter Visit Diagnoses Not on filedocumented in this encounter
--- OUTSIDE RECORDS SUMMARY | 2022-02-06 10:24 | XMS_ITS | Encounter Summary ---
:1965 Author Organization [place] Address [address] [place] [address] Care Team Providers Name Role Phone Selma Good SURFACE SHIP USW SUPERVISOR TECHNICAL ADVISOR Primary Care Provider [phone] Encounter Details Date Type Department Care Team Description 04/21/2008 Results Only [facility] Eag Selma Anthony, 14[address] [facility] SURFACE SHIP USW SUPERVISOR TECHNICAL ADVISOR [place] [phone] [address] [facility] [phone] [facility] DAV[place] [address] (Wo rk) Social [...] How often do you attend anabaptism or adventist Patient refused 08/08/2019 services? Do [...] Name Priority Date/Time Associated Diagnosis Comme [facility] MAMMO SCREEN Routine 04/21/2008 10:29 AM Resul ts for this BILATATERAL, INCL FIELD ARTILLERY OFFICER procedure are in CAD WHEN PERF the results section. documented in this encounter Results SCREENING MAMMOGRAPHY DIGITAL (BILAT) (04/21/2008 10:29 AM FIELD ARTILLERY OFFICER) Specimen (Source) Anatomical Collection Method Collection Time Re ceived Time Location / / Volume Laterality 04/21/2008 10:29 AM FIELD ARTILLERY OFFICER Impressions RADIOLOGY RESULTS - 04/21/2008 11:04 AM FIELD ARTILLERY OFFICER SCREENING MAMMOGRAM, BILATERAL, DIGITAL w/ CAD BREAST SYMPTOMS/COMPARISON:Routine. 09-29 BREAST PARENCHYMAL PATTERN: Heterogeneou sly dense. COMMENTS: Negative. IMPRESSION: BI-RADS 1, NEGATIVE. Selma Good APRN, CNP SPECIAL IMAGING STUDIES Performing Organization Address City/State/ZIP Code Phon e Number RADIOLOGY RESULTS documented in this encounter Visit Diagnoses Not on filedocumented in this encounter Care Teams Forestry Workers Relationship Specialty Start Date End Date Selma Good APRN CNP PCP - General 04/09/08 04/07/15 [address] [facility] [address] [place], [place] [address] documented as of this encounter
--- OUTSIDE RECORDS SUMMARY | 2022-02-06 10:24 | XMS_ITS | Encounter Summary ---
:1965 Author Organization [place] Address [address] [place] [address] Care Team Providers Name Role Phone Selma Good APRN BOWL ATTENDANT Primary Care Provider [phone] Encounter Details Date Type Department Care Team Description 02/19/2006 Historic Results INTERFACED REPORT Zachary Kirkland MD JOHN STARK MD PA [address] [facility] [address] [place] [address] (Wo rk) Social History Tobacco [...] How often do you attend sabianist or jehovah's witness Patient refused 08/08/2019 services? [...] Crossmatch red cells (02/19/2006 12:10 PM CDT) [facility] Method Time Signature ABO O MISYS RH(D) Pos MISYS Antibody Neg MISYS Screen Blood Red Cells MISYS Component Type Units Ordered 2 MISYS Specimen 02/22/2006 MISYS Expires Unit Number [id number] MISYS Blood Red Blood MISYS Component Cells Type Leukocyte Reduced Status of REL FROM MISYS Unit ALLOC Unit Number [id number] MISYS Blood Red Blood MISYS Component Cells [...] on filedocumented in this encounter Care Teams Global Sales Director Relationship Specialty Start Date End Date Selma Good, SEAN BOWL ATTENDANT PCP - General 04/09/08 04/07/[address] [place] [address] documented as of this encounter
--- OUTSIDE RECORDS SUMMARY | 2022-02-06 10:24 | XMS_ITS | Encounter Summary ---
:1965 Author Organization [employer] Address [address] [place] [address] Care Team Providers Name Role Phone Selma Good APRN MOLD INJECTOR Primary Care Provider [phone] Encounter Details Date Type Department Care Team Description 02/24/2006 Historic Closing Manager INTERFACED REPORT Interface, MD Brannon Social History [...] How often do you attend samaritan or yazidi Patient refused 08/08/2019 services? Do [...] on filedocumented in this encounter Care Teams Organ Grinder Relationship Specialty Start Date End Date Danilo-Selma Mccoy APRN MOLD INJECTOR PCP - General 04/09/08 04/07/15 [address] [facility] [place] [address] documented as of this encounter
--- OUTSIDE RECORDS SUMMARY | 2022-02-06 10:24 | XMS_ITS | Encounter Summary ---
:1965 Author Organization [place] Address [address] [place] [address] Care Team Providers Name Role Phone Unavailable Primary Care Provider Unavailable Encounter Details Date Type Department Care Team Description 02/19/2006 Operative Report Hamzah Ramos MD (Custody Officer) HAMZAH RAMOS MD PA [address] [facility] 715 [place] [address] (Wo rk) Social History Tobacco [...] How often do you attend religion or gnosticist Patient refused 08/08/2019 services? Do [...] draped supine on the operating table. Dr. Galavn performed a retroperitoneal approach. He will dictate [...] HAMZAH RAMOS MD 151:1 MT: armin Document: [id number] LCN: [id number] DSC: Name: MR#: : Procedure Date: PADMINI CHOI [id number] 1965 02/19/2006 OPERATIVE REPORT Page 2 of [...] was prepped and draped prone on the four-manager shell. A longitudinal incision was made under direct [...] Midas Chilango was used to create a ship harbor pilot hole and then using the C-arm [...] distally and mediolaterally within a pedicle. A ship harbor pilot hole was made with the Midas [...] in 2 to 4 days. Lovenox and TRANSPORT PILOT Dilaudid while in the hospital. HAMZAH RAMOS MD Dictated by: HAMZAH RAMOS MD 181:0 MT: armin Document: [id number] LCN: [id number] DSC: Name: MR#: : Procedure Date: PADMINI CHOI [id number] 1965 02/19/2006 OPERATIVE REPORT Page 3 of 3 documented in this encounter Plan of Treatment Not on filedocumented as of this encounter Visit Diagnoses Not on filedocumented in this encounter
--- OUTSIDE RECORDS SUMMARY | 2022-02-06 10:24 | XMS_ITS | Encounter Summary ---
:1965 Author Organization [place] Address [address] [place] [address] Care Team Providers Name Role Phone Selma Good APRN LINING PRINTER Primary Care Provider [phone] Encounter Details Date Type Department Care Team Description 10/24/2008 Orders Only [facility] Eag an Obesity; [address] Obesity, Unspecified [place] [address] Social History Tobacco Use Types [...] How often do you attend evangelical or temple Patient refused 08/08/2019 services? Do [...] athologist Signature Cholesterol 183 0 - 200 [facility] mg/dL CLINIC LAB Comment: LDL Cholesterol [...] mg/dL. Triglycerides 132 0 - 150 mg/dL [facility] HDL Cholesterol 34 (L) 50 - 110 mg/dL [facility] LDL Cholesterol Calculated 123 0 - 129 mg/dL [facility] Comment: LDL Cholesterol is the primary guide to therapy: LDL-cholesterol goal in high risk patients is <100 mg/dL and in very high risk patients is <70 mg/dL. VLDL-Cholesterol 26 0 - 30 mg/dL [facility] Cholesterol/HDL Ratio 5.4 (H) 0.0 - 5.0 [facility] Specimen Anatomical Collection Method Collection Time Receive d Time (Source) Location / / Volume Laterality 10/24/2008 9:56 AM 9 CDT 10:01 AM CDT Selma Good APRN LINING PRINTER LABORATORY Performing Organization Address City/[facility]/ZIP Code Phon e Number [facility] [address] [place] [phone] [facility] (ABNORMAL) GLUCOSE (10/24/2008 9:56 AM CDT) athologist Signature Glucose 119 (H) 60 - 99 [facility] mg/dL CLINIC LAB Specimen Anatomical Collection Method Collection Time Receive d Time (Source) Location / / Volume Laterality 10/24/2008 9:56 AM 9 CDT 10:01 AM CDT Selma Good APRN [facility] LABORATORY Performing Organization Address [facility] Phon e Number [facility] [address] [place] [address] [phone] [facility] (ABNORMAL) HEMOGLOBIN A1C (10/24/2008 9:56 AM CDT) P athologist Signature Hemoglobin A1C 6.3 (H) 4.3 - 6.0 [facility] Specimen Anatomical Collection Method Collection Time Receive d Time (Source) Location / / Volume Laterality 10/24/2008 9:56 AM 9 CDT 10:01 AM CDT Selma Good APRN, CNP LABORATORY Performing Organization Address City/State/ZIP Code Phon e Number [facility] [address] [facility] [place] [phone] [facility] documented in this encounter Visit Diagnoses Diagnosis Obesity Obesity, unspecified Obesity, unspecified documented in this encounter Care Teams Manufacturing Team Leader Relationship Specialty Start Date End Date Selma Good APRN LINING PRINTER PCP - General 04/09/08 04/07/15 [address] [facility] [place] [address] documented as of this encounter
--- OUTSIDE RECORDS SUMMARY | 2022-02-06 10:24 | XMS_ITS | Encounter Summary ---
:1965 Author Organization [place] Address [facility] [place] [address] Care Team Providers Name Role Phone Selma Good APRN VENTILATION MECHANIC Primary Care Provider [phone] Reason for Referral - Closed Specialty Diagnoses / Procedures Referred By Contact Refer red To Contact Diagnoses Right elbow pain Rayo Rouse PA-C [facility] [address] [place] [address] Referral ID Status Reason Start Date Expiration Date Visits Requ ested Visits Authorized [id number] Closed 03/12/2009 06/10/2011 1 1 Reason for Visit Reason Comments Musculoskeletal Problem right arm injury on 6 days a go after hanging up clothes, she felt a large pop near forear m Urgent Care Encounter Details Date Type Department Care Team Description 03/12/2009 Office Visit [facility] Urgent Rayo Rouse Righ t Elbow Pain Care MIKAYLA (Primary Dx) [address] [facility] [place] [address] [phone] [place] [id number] Social History Tobacco Use Types Packs/Day Years [...] How often do you attend yazdanism or shinto Patient refused 08/08/2019 services? Do you belong to any clubs or organizations such as No 08/08/2019 yazdanism groups, [employer], [employer] or athletic groups, or school groups? How [...] the distal circulation. Pulses are +2 and HOSPITAL RECEPTIONIST is brisk GENERAL APPEARANCE: healthy, alert and [...] Name Priority Date/Time Associated Diagnosis Comme [facility] RT X-RAY ELBOW Routine 03/12/2009 6:28 [...] arm documented in this encounter Care Teams High Speed Operator Relationship Specialty Start Date End Date Danilo-Selma Mccoy, VALUE STREAM COACH VENTILATION MECHANIC PCP - General 04/09/08 04/07/15 [address] [facility] [address] [place], [place] [address] documented as of this encounter
--- OUTSIDE RECORDS SUMMARY | 2022-02-06 10:24 | XMS_ITS | Encounter Summary ---
:1965 Author Organization [place] Address [address] [place] [address] Care Team Providers Name Role Phone Selma Good APRN PROVIDER RELATIONS SPECIALIST Primary Care Provider Encounter Details Date Type Department Care Team Description 02/20/2006 Historic Results [facility] Urgent Adriana Montesinos, Stephanie Azevedo MD [address] [place] [address] [place] [address] (Wo rk) Social History Tobacco [...] How often do you attend yarsani or yazdanism Patient refused 08/08/2019 services? Do [...] Component Value Ref Test Analysis Performed At [facility] gist Range Method Time Signature Source Unspecified MISYS Urine Color Urine Yellow MISYS Appearance Urine Clear MISYS Glucose Urine 70 (A) NEG MISYS mg/dL Bilirubin Urine Negative NEG MISYS Ketones Urine Negative NEG MISYS mg/dL Specific [place] 1.009 1.003 - MISYS Urine 1.035 Blood [...] LAB - URINE ORDERABLES Performing Organization Address City/[facility]/ZIP Code Phon e Number MISYS Urine culture (02/20/2006 1:30 PM CDT) [facility] Method Time Signature Specimen Unspecified MISYS Description Urine Culture Micro No growth MISYS Micro Report FINAL [id number] MISYS Status Specimen Anatomical Collection Method Collection Time Receive d Time (Source) Location / / Volume Laterality 02/20/2006 1:30 PM 6 CDT 11:[address] Montesinos MD LAB - MICRO GENERAL ORDERABL ES Performing Organization Address City/[facility]/ZIP Code Phon e Number MISYS (ABNORMAL) Hemogram differential and platelet (02/20/2006 12:00 PM CDT) [facility] Method Time Signature MCV 91 78 - [...] on filedocumented in this encounter Care Teams Wet End Tester Relationship Specialty Start Date End Date Selma Good, FARMWORKER BROODER FARM PROVIDER RELATIONS SPECIALIST PCP - General 04/09/08 04/07/15 [address] [address] [place], [place] [address] documented as of this encounter
--- OUTSIDE RECORDS SUMMARY | 2022-02-06 10:24 | XMS_ITS | Encounter Summary ---
:1965 Author Organization [place] Address [address] [place] [address] Care Team Providers Name Role Phone Selma Good APRN ROUGE SIFTER Primary Care Provider [phone] Reason for Visit Reason Comments Sinus Problem Urgent Care Encounter Details Date Type Department Care Team Description 07/28/2008 Office Visit [facility] [place], Ashli Minor, Shine eckert Otitis Media Care MD (Primary Dx) [address] [place] [address] [place] [address] [place] [address] (Wo rk) Social History [...] How often do you attend bahai or judaism Patient refused 08/08/2019 services? Do [...] Comments Blood Pressure 122/74 07/28/2008 6:00 PM RIVET CATCHER Pulse - - Temperature 37.1 ??C (98.7 ??F) 07/28/2008 6:00 PM RIVET CATCHER Respiratory Rate 16 07/28/2008 6:00 PM RIVET CATCHER Oxygen Saturation - - Inhaled Oxygen Concentration [...] the amount of pus behind the membrane. T CATCHER documented in this encounter Nursing Notes 07/28/2008 [...] media documented in this encounter Care Teams Research Advisor Relationship Specialty Start Date End Date Danilo-Selma Mccoy, COMPUTER OPERATIONS SUPERVISOR ROUGE SIFTER PCP - General 04/09/08 04/07/[address] [facility] [address] [place], [place] [address] documented as of this encounter
--- OUTSIDE RECORDS SUMMARY | 2022-02-06 10:24 | XMS_ITS | Encounter Summary ---
:1965 Author Organization [place] Address [address] [place] [address] Care Team Providers Name Role Phone Selma Good APRN PAINTER APPRENTICE Primary Care Provider [phone] Reason for Visit Reason Onset Date Comments Refill Request 08/04/2008 amoxicillin Encounter Details Date Type Department Care Team Description 08/04/2008 Refill [facility] Eag Selma Anthony Refill Request 1440 HALKAR JSEAN CNP (amoxicillin) [place] [address] [facility] [phone] [facility] [place] [address] (Wo rk) Social History [...] for her? Please call her when done. [phone] OK to leave a message. Tash Montez RN OR SALES OPERATIONS MANAGER documented in this encounter Plan of Treatment Not on filedocumented as of this encounter Visit Diagnoses Diagnosis Acute otitis media - Primary Unspecified otitis media documented in this encounter Care Teams Size Mixer Relationship Specialty Start Date End Date Danilo-Selma Mccoy, KNOCK OUT HAND PAINTER APPRENTICE PCP - General 04/09/08 04/07/15 [address] [facility] [address] [place], [place] [address] documented as of this encounter
--- OUTSIDE RECORDS SUMMARY | 2022-02-06 10:24 | XMS_ITS | Encounter Summary ---
:1965 Author Organization [place] Address [address] [place] [address] Care Team Providers Name Role Phone Selma Good APRN [facility] Primary Care Provider [phone] Reason for Visit Reason Comments Elbow Pain c/o left elbow pain for 3 mo nths. no known injury Encounter Details Date Type Department Care Team Description 02/11/2009 Office Visit [facility] Florentino, Cervical Ra diculopathy Pino Anglees APRN (Primary Dx) 14[address] [facility] [place] [address] [place] [address] [facility] [place] [phone] Social History Tobacco Use Types Packs/Day Years [...] How often do you attend voodoo or alevism Patient refused 08/08/2019 services? Do [...] trap muscular tension and tendernes upon palpation. Investment Counselor strength +2/+2, sensation to lt touch of fingers intact. Pain described as tingling and numbness. X-RAY was not done. ASSESSMENT/PLAN: 723.4AS Cervical Radiculopathy (primary encounter diagnosis) Comment: Discussed this pain is most likely stemming from her ongoing neck problems. She had an option to see neurology or wildland fire operations specialist. 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
--- OUTSIDE RECORDS SUMMARY | 2022-02-06 10:24 | XMS_ITS | Encounter Summary ---
:1965 Author Organization [place] Address [address] [place] [address] Care Team Providers Name Role Phone Selma Angelo APRN CNC MACHINE OPERATOR Primary Care Provider [phone] Reason for Visit Reason Comments Physical Encounter Details Date Type Department Care Team Description 04/13/2008 Office Visit [facility] Florentino, Lilo Gen eral Medical Examination at a Health Care Facility (Primary Dx); Pino [place] APRN Screening Mammogram; 1440 [facility] Screening for Malignant Neoplasm of the Cervix; [place] [address] [facility] Need for Prophylactic Vaccin ation and Inoculation Against Influenza; [phone] [facility] Migraine Headaches; [place] [address] GERD (Gastroesophageal Reflux Disease); [phone] Obesity (Work) Social History Tobacco Use Types [...] Comments Blood Pressure 118/70 04/13/2008 3:30 PM FITTING ROOM ASSOCIATE Pulse 76 04/13/2008 3:30 PM FITTING ROOM ASSOCIATE Temperature - - Respiratory Rate - - Oxygen Saturation - - Inhaled Oxygen Concentration - - Weight 94.3 kg (208 lb) 04/13/2008 3:30 PM FITTING ROOM ASSOCIATE Height 157.5 cm (5' 2) 04/13/2008 3:30 PM FITTING ROOM ASSOCIATE Body Mass Index 38.04 04/13/2008 3:30 PM FITTING ROOM ASSOCIATE documented in this encounter Progress Notes Selma [...] security ops specialist [facility] Social History Main Topics ??? Tobacco Use: Never ??? Alcohol Use: Yes Rare ??? Drug Use: No ??? Sexually Active: Yes -- Male partner(s) Control/ Protection: Surgical Tubal Other Topics Concern ??? Not on file Social History Narrative ??? No narrative on file Family History Problem Relation ??? Cardiovascular Mother [place] age 72 ??? Cardiovascular Father [place] early 40s, subsequent bipass ??? Diabetes Mother [...] appointment if any problems or failureto improve. ING ROOM ASSOCIATE Dafne Guerrero - 04/13/2008 3:36 PM CST [...] you fasting today? No Ivette Allan M.A. ING ROOM ASSOCIATE documented in this encounter Plan of Treatment Not on filedocumented as of this encounter Procedures Procedure Name Priority Date/Time Associated Diagnosis Comme nts HCL PAP THIN LAYER Routine 04/13/2008 12:00 AM Screening for R esults for this SCREEN FITTING ROOM ASSOCIATE Malignant Neoplasm procedure are in of the Cervix the results section. documented in this encounter Results A THIN LAYER PAP SCREEN (04/13/2008 12:00 AM FITTING ROOM ASSOCIATE) Component Value Ref Test Analysis Performed At [facility] Range Method Time Signature PAP OTHER-NIL EM>40 COPATH Copath Report COPATH Patient Name: PADMINI CHOI MR#: [id number] Specimen #: [id number] Collected: 04/13/2008 Received: 04/14/2008 Reported: 04/16/2008 16:11 [...] Todd Mckeon M.D. [facility] CLINICAL HISTORY: LMP: 03/28/08 TESTING LAB LOCATION: [address] ??[address] COLLECTION SITE: Client: ??[facility] Location: [facility] (R) Specimen (Source) Anatomical Collection Method Collection Time Re ceived Time Location / / Volume Laterality 04/13/2008 04/14/2008 4:20 PM FITTING ROOM ASSOCIATE Selma Angelo APRN, CNP LABORATORY Performing Organization [...] unspecified documented in this encounter Care Teams Property Custodian Relationship Specialty Start Date End Date Selma Angelo APRN CNP PCP - General 04/09/08 04/07/[address] [place] [address] documented as of this encounter
--- OUTSIDE RECORDS SUMMARY | 2022-02-06 10:24 | XMS_ITS | Encounter Summary ---
:1965 Author Organization [place] Address [facility] [place] [address] Care Team Providers Name Role Phone Unavailable Primary Care Provider Unavailable Encounter Details Date Type Department Care Team Description 02/20/2006 Results Only [facility] Hamzah Kirkland MD [facility] Radiology Results HAMZAH KIRKLAND MD PA [address] [facility] [address] [place] [address] (Wo rk) Social History Tobacco [...] How often do you attend scientology or mosque Patient refused 08/08/2019 services? Do [...] Procedure Name Priority Date/Time Associated Diagnosis Comme [facility] X-RAY LUMBAR Routine 02/20/2006 8:33 PM [...]
--- OUTSIDE RECORDS SUMMARY | 2022-02-06 10:27 | XMS_ITS | Encounter Summary ---
:1965 Author Organization [facility] Address [address], [place] [address] Care Team Providers Name Role Phone Jose Colin DO Primary Care Provider [phone] Encounter Details Date Type Department Care Team Description 12/05/2007 [facility] Internal Med Wilda Burton RN [address] [place] [address] [address] [phone] [place], [place] [address] Social History Tobacco Use Types [...] on filedocumented in this encounter Care Teams Test Tech Relationship Specialty Start Date End Date Jose Colin, PCP - General 12/24/03 09/17/[address] [place] [address] documented as of this encounter
--- OUTSIDE RECORDS SUMMARY | 2022-02-06 10:27 | XMS_ITS | Encounter Summary ---
:1965 Author Organization [facility] Address [address] [place] [address] Care Team Providers Name Role Phone Unassigned, Provider Primary Care Provider Unavailable Reason for Referral Procedure/Equipment (Routine) - Incomplete Specialty Diagnoses / Procedures Referred By Contact Refer red To Contact Diagnoses Arthralgia, unspecified joint Fibromyalgia Kerrie Iqbal MD Procedures XR Hands 1 View Bilat Arthritis [address] [place], [place] [address] Referral ID Status Reason Start Date Expiration Date Visits V isits Requested Authorized [id number] Incomplete 05/25/2021 08/24/2022 1 1 [facility] Reason for Visit Reason Comments CONSULT Encounter Details Date Type Department Care Team Description 05/25/2021 Office Visit Kerrie Grijalva Arthralgi a, unspecified joint (Primary Dx); Rheumatology MD Jeramie Fibromyalgia; [address] [facility] Chronic neck pain with histo ry of cervical spinal surgery; [place] [address] [facility] Chronic low back pain with sciatica, sci atica laterality unspecified, unspecified back pain laterality (HRC); [phone] [place], [place] Positive A NA (antinuclear antibody) [address] (Wo rk) Social History Tobacco Use Types Packs/Day Years Used Date Smoking Tobacco: Never Smokeless Tobacco: Never Alcohol Use Standard Drinks/Week Comments Yes 0 (1 standard drink = 0.6 oz pure alcoho l) rarely Sex Assigned at Date Recorded Not on file documented as of this encounter Last Filed Vital Signs Vital Sign Reading Time Taken Comments Blood Pressure 120/62 05/25/2021 11:09 AM [facility] Pulse 59 05/25/2021 11:09 AM DIRECTOR [facility]ARMAC[facility]ILANCE Temperature 36.7 ??C (98.1 ??F) 05/25/2021 11:09 AM DIRECTOR [facility]ARMAC[facility]IGILANCE Respiratory Rate - - Oxygen Saturation - - Inhaled Oxygen Concentration - - Weight 78.8 kg (173 lb 12.8 oz) 05/25/2021 11:09 AM DIRECTOR PHARMACOVIGILANCE Height - - Body Mass Index - [...] in helping patients better manage chronic pain. Epg-suiyzwhvla-mazac treatments An exercise program is an essential [...] pool. Many community pools such as the [facility] offer ???fibrocize?? water aerobics programs. A [...] also help reduce stress. Occupational therapists at [facility] offer a program called the Lifestyle renewal program (see information on last page), where you can learn these techniques, and the majority of patients report that this is helpful. Pain psychologists at [facility] are another helpful resource. Emma Horn, PhD, Mandy Roldan M.Ed, LP, Psychologist at [facility] [Chronic pain (headaches, fibromyalgia, etc.) and irritable bowel syndrome - evaluation and treatment], and Rajiv Sutherland, Ph.D., LP, Psychologist at [facility]INTING MACHINE OPERATOR (Chronic pain evaluation). Patients may schedule [...] help in someinstances, as can health care sanitary technician. Warm water pool physical therapy at places like the [facility] and [facility] can be prescribed by your physician, [...] trigger points can be injected by your Algebra Teacher or other providers with a mixture of [...] internal organs. Resources ??? National Fibromyalgia Association [phone] www.fmaware.org ??? National [place] of Arthritis and Musculoskeletal and Skin Diseases 026 658 2293 www.niams.nih.gov ??? National Center for Complementary and Alternative Medicine 852 425 6119 www.[facility].nih.gov ??? [facility] (Water aerobics, heated pool to 91 degrees) [address] [place] [address]; charges apply. What else can be tried? Sometimes, for a minority of patients, the above interventions do not result in control of fibromyalgia. In these cases, you should consider a chronic pain program. Several of these and additional resources are listed below: [facility]), a nursing practice for fibromyalgia patients, has opened at [address] [place] [address], to serve [facility]. Lashawn Larios, RN, CATALYST OPERATOR CHIEF and Staci Porter MS, RN, are the founders and co-owners. [phone] [facility], Dr. Emir Saini , [address] [facility] [place] [address] [facility] [address], [place] [address] Also offices in [place] and [place]. , [email or web address].[employer]/ [facility] - Aquatic Therapy: [facility], [place], Ann Velasquez, [place], [facility], [facility]. http://www.[email or web address] – fairfaxTrabajoPanel.Skimo TV/ContentPages/Locations.aspx [facility] [place] [address] Outpatient therapy: (physical, occupational and speech therapy; pile driver engineer evaluations) Initial appointment: [phone]; Follow-up appointment: [phone] Aquatic therapy, Ann Yusuf [phone] [facility], [email or web address]://www.[email or web address].[employer]/, [address] [facility], [place] [address], . [facility] - Pain Management [address] [place] [address] Appointments: [phone] [facility] [email or web address]- [email or web address]/ [email or web address], [address], [place] [address]; Also a location in [place]. [facility] [phone] [facility] [facility] [address] [place] [address] [facility] - they focus more on back pain, but offer cognitive behavioral therapy. [facility] [phone] [facility] [phone], [address] [facility], [address], [place] [address] Saleem Mayberry MD [phone], fireworks display specialist, [place] [address]15 [facility], , [place] [address] [facility] (will treat fibromyalgia and chronic pain syndrome in additionto head & neck disorders; also have MedX equipment for chronic back pain). www.[email or web address] ??? [place]: [address] [facility], [address], [address]; [phone] ??? [place]: [address] [facility], [address], [address]; [phone] ??? [place]: [address], [address]; [phone] ??? [place]: [address] [facility], [address]; [phone] Lifestyle Renewal Program - At [facility] The LifeStyle Renewal Program is an integrated [...] symptoms and improve quality of life. Location: [facility] and [place] Providers: Occupational Therapists with specialty training. Program: [...] Increase understanding - provide education 4. Use ixbq-cmxx-zaomdt therapies to reframe pain/symptom experience 5. Modify behaviors to improve function 6. Relieve stress 7. Set up support systems 8. Increase physical activity 9. Improve sleep Education is provided in the areas of pacing, exercise, relaxation, sleep hygiene, body mechanics, postural awareness, ergonomics, Qigong, Healing Touch, problem solving and adaptive equipment. How to Contact: General information/scheduling [facility] documented in this encounter Progress Notes Kerrie Iqbal MD - 05/25/2021 11:00 AM CST Rheumatology New Patient/Consult Note Encounter Date: 05/25/2021 Referral: Kylah Cho MD [address] [place] [address] Reason for consult: Chief Complaint Patient presents with ??? CONSULT HPI: The patient is a 56 y.o. female with medical history of type II DM, degenerative spine disease with history of cervical and lumbar fusion, and fibromyalgia presenting to our clinic today for evaluation of arthralgias and abnormal lab. Outside labs from [place] clinic reviewed. She was previously scheduled to see rheumatology in December but had issues with the video visit. FALGUNI done at [place] in November 2020 1:160 dense fine speckled. She had a normal ESR and CRP at that time. RF and CCP negative. She had repeat blood work done in February 2021-results uploaded in MEDIA and reviewed. FALGUNI positive with negative WILNER panel including anti chromatin, anti SM, PARTS SALESPERSON, Scl-70, SSA, SSB. ESR and CRP normal. [...] was just recently increased. 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 [...] CAREPLAN: ANTI-COAGULATION(Exp-05/01/08) ??? DVT (deep venous thrombosis) ([facility]) 05/01/2007 Priority: Low priority Class: Active [...] proximal and distal, upper and lower extremities. Head Stock Transfer Clerk 5/5. Psych: Normal affect, normal speech. MSK: [...] left Hands: FROM, 100% fist making, good plaster machine operator strength, there is some slight fullness more [...] 04/16/2007 Protein, Urine Qual Negative 04/16/2007 Specific Sweetser,Ur 1.001 (L) 04/16/2007 Urobil, Urine Qual <2.0 04/16/2007 Epith, Squamous Occ 02/15/2006 WBC'S 1 04/16/2007 Bact Occ 04/16/2007 No results found for: CRP No results found for: ANASCREEN, RFQ, ESR Lab Results Component Value Date TSH, with Reflex 1.80 10/07/2005 outside labs from [facility] and [place] reviewed, noted in HPI MRI lumbar spine [...] All questions answered. Kerrie Iqbal MD Rheumatology [place] Flex Billing based on: time Total time for the visit was 65 minutes including, but not limited to, zgs-iojf-ku-face time spent reviewing records, counseling, and coordination of care. Thank you for involving me in this patient's care. This note was dictated using voice recognition software. There may be sound- alike and/or punctuationerrors. Copy to Kylah Cho MD [address] [place] [address] [facility] documented in this encounter Plan of Treatment Not on filedocumented as of this encounter Results XR Hands 1 View Bilat Arthritis (05/25/2021 12:24 PM DIRECTOR [facility]ARMAC[facility]IL[facility]) Anatomical Region Laterality Modality Upper Extremity, Hand Digital Radiograph y Specimen (Source) Anatomical Collection Method Collection Time Re ceived Time Location / / Volume Laterality 05/25/2021 12:19 PM [facility] Impressions 05/25/2021 2:16 PM [facility] COMPARISON: ??None. FINDINGS: ??Single view bilateral AP [...] CPK - CK Total (05/25/2021 12:16 PM [facility]ARMAC[facility]IL[facility]) P athologist Signature CK, Total 64 29 - 168 05/25/2021 [place] U/L 3:03 PM [facility] LABORATORY Specimen Anatomical Collection Method / Collection Time Recei terell Time (Source) Location / Volume Laterality Blood Venipuncture / 05/25/2021 12:16 1 Unknown PM [facility] 12:16 PM [facility]ANCE Kerrie Iqbal MD LAB_1 Performing Organization Address [facility] Phon e Narayan [facility] [address] [place] [address] ESR - Sedimentation Rate (05/25/2021 12:16 PM DIRECTOR [facility]ARMAC[facility]IGILANCE) Patholo gist Method Time Signature Sedimentation Rate 6 0 - 20 05/25/2021 [facility] mm/hr 12:56 PM [facility]ORATORY Specimen Anatomical Collection Method / Collection Time Recei terell Time (Source) Location / Volume Laterality Blood Venipuncture / 05/25/2021 12:16 1 Unknown PM [facility]ARMAC[facility]IGILANCE 12:16 PM DIRECTOR PHARMAC[facility]IGILANCE Kerrie Iqbal MD LAB_1 Performing Organization Address City/[facility] jeramie [facility] [address] [place] [address] ZHB-Qvhv-NN-DNA by Kirstie Assay (05/25/2021 12:16 PM [facility]ARMAC[facility]IL[facility]) P athologist Signature Anti-dsDNA Ab <8.0 <8.0 IU/mL 06/03/2021 [facility] (Kirstie Assay) 5:06 PM DIRECT[facility]ARMAC[facility]IGILANCE INTERFACED Specimen Anatomical Collection Method / Collection Time Recei terell Time (Source) Location / Volume Laterality Blood Venipuncture / 05/25/2021 12:16 1 Unknown PM DIRECTOR PHARMACOVIGILANCE 12:16 PM DIRECTOR PHARMAC[facility]IGILANCE Narrative [facility] INTERFACED - 06/03/2021 5:06 PM DIRECTOR PHARMACOVIGILANCE Test(s) [id number] Ab by Kirstie(RDL) was developed and its performance charac teristics determined by [facility]. It has not been cleared or a pproved by the Food and Drug Administration. Performed at: ??01 - [employer] [address] [place] [address] A ??[id number] Peripheral Vascular Tech: Vadim Palacios MD, Phone: ? ?[phone] Kerrie Iqbal MD LAB_1 Performing Organization Address City/State/ZIP Code Phon e Number [facility] INTERFACED [address] [address] [place] [address] CRP - C Reactive Protein (05/25/2021 12:16 PM DIRECTOR PHARMACOVIGILANCE) P athologist Signature C-Reactive <0.5 0.0 - 0.7 05/25/2021 [facility] Protein mg/dL 3:03 PM [facility]ORATORY Specimen Anatomical Collection Method / Collection Time Recei terell Time (Source) Location / Volume Laterality Blood Venipuncture / 05/25/2021 12:16 1 Unknown PM DIRECTOR PHARMAC[facility]IGILANCE 12:16 PM DIRECTOR PHARMACOVIGILANCE Kerrie Iqbal MD LAB_1 Performing Organization Address City/State/ZIP Code Phon e Number [facility] [address] [place] [address] documented in this encounter Visit Diagnoses [...] unspecified documented in this encounter Care Teams Casino Cashier Manager Relationship Specialty Start Date End Date Unassigned, Provider PCP - General 09/18/08 [address] [place] [address] documented as of this encounter
--- OUTSIDE RECORDS SUMMARY | 2022-02-06 10:27 | XMS_ITS | Encounter Summary ---
:1965 [facility] Address [address] [place] [address] Care Team Providers Name Role Phone Jose Colin DO Primary Care Provider [phone] Encounter Details Date Type Department Care Team Description 12/19/2007 Orders Only [facility] DVT (Deep Venous [address] Thrombosis) [place], [place] [id number] Social History Tobacco Use Types Packs/Day Years [...] 12.0 - [facility] 14.5 sec [facility]madin [facility]0 [facility] Specimen Anatomical Collection Method Collection Time Receive d Time (Source) Location / / Volume Laterality 12/19/2007 7:22 AM 8 7:45 CDT AM CDT Jose Colin DO LAB_1 Performing Organization Address City/State/ZIP Code Phon e Number [facility] [phone] [facility] [address] [address] documented in this encounter Visit Diagnoses Diagnosis DVT (deep venous thrombosis) ([facility]) Acute venous embolism and thrombosis of unspecified deep vessels of lower extremity documented in this encounter Care Teams Rail Operator Relationship Specialty Start Date End Date Jose Colin DO PCP - General 12/24/03 09/17/08 [address] [place] [address] documented as of this encounter
--- OUTSIDE RECORDS SUMMARY | 2022-02-06 10:27 | XMS_ITS | Encounter Summary ---
:1965 Author Organization [facility] Address [address] [place] [address] Care Team Providers Name Role Phone Jose Colin DO Primary Care Provider [phone] Encounter Details Date Type Department Care Team Description 10/08/2007 Orders Only [facility] DVT (Deep Venous [address] Thrombosis) [place], [place] [id number] Social History Tobacco Use Types Packs/Day Years [...] 14.5 sec Coumadin Yes [facility] INR 1.5 [facility] Specimen Anatomical Collection Method Collection Time Receive d Time (Source) Location / / Volume Laterality 10/08/2007 7:40 AM 8 7:41 CDT AM CDT Jose Colin DO LAB_1 Performing Organization Address City/State/ZIP Code Phon e Number [facility] [phone] [facility] [address] [address] documented in this encounter Visit Diagnoses Diagnosis DVT (deep venous thrombosis) ([facility]) Acute venous embolism and thrombosis of unspecified deep vessels of lower extremity documented in this encounter Care Teams Utility System Repairer Relationship Specialty Start Date End Date Jose Colin DO PCP - General 12/24/03 09/17/08 [address] [place] [address] documented as of this encounter
--- OUTSIDE RECORDS SUMMARY | 2022-02-06 10:27 | XMS_ITS | Encounter Summary ---
:1965 Author Organization [facility] Address [address] [place] [address] Care Team Providers Name Role Phone Jose Colin DO Primary Care Provider [phone] Reason for Visit Reason Onset Date Comments Careplan: Anticoagulation 09/24/2007 Encounter Details Date Type Department Care Team Description 09/24/2007 Telephone [facility] Internal Stephanie Colinplan: A [facility] Jose Allan DO [address] [facility] [address] [place] [address] [place], [place] [phone] [address] Social History Tobacco Use Types Packs/Day [...] on filedocumented in this encounter Care Teams Broke Worker Relationship Specialty Start Date End Date Jose Colin DO PCP - General 12/24/03 09/17/08 [address] [place] [address] documented as of this encounter
--- OUTSIDE RECORDS SUMMARY | 2022-02-06 10:27 | XMS_ITS | Encounter Summary ---
:1965 Author Organization [facility] Address [address], [place] [address] Care Team Providers Name Role Phone Jose Colin DO Primary Care Provider [phone] Encounter Details Date Type Department Care Team Description 10/03/2007 [facility] Internal Med Wilda Burton RN [address] [place] [address] [address] [phone] [place], [place] [address] Social History Tobacco Use Types [...] on filedocumented in this encounter Care Teams Chip Unloader Relationship Specialty Start Date End Date Jose Colin, PCP - General 12/24/03 09/17/[address] [place] [address] documented as of this encounter
--- OUTSIDE RECORDS SUMMARY | 2022-02-06 10:27 | XMS_ITS | Encounter Summary ---
:1965 Author Organization [facility] Address [address], [place] [address] Care Team Providers Name Role Phone Jose Colin DO Primary Care Provider Encounter Details Date Type Department Care Team Description 12/31/2007 [facility] Internal Med Wilda Burton RN [address] [place] [address] [address] [phone] [place], [place] [address] Social History Tobacco Use Types [...] on filedocumented in this encounter Care Teams Tire Buffer Relationship Specialty Start Date End Date Jose Colin, PCP - General 12/24/03 09/17/[address] [place] [address] [address] documented as of this encounter
--- OUTSIDE RECORDS SUMMARY | 2022-02-06 10:27 | XMS_ITS | Encounter Summary ---
:1965 Author Organization [facility] Address [address], [place] [address] Care Team Providers Name Role Phone Jose Colin DO Primary Care Provider [phone] Encounter Details Date Type Department Care Team Description 10/16/2007 Anticoagulation [facility] Internal Med Laura Martinez [address] [facility] Aleyda, [place] [address] [facility] [phone] [address] [place], [place] [address] (Wo rk) Social History [...] filedocumented in this encounter Care Teams User Support Analyst Supervisor Relationship Specialty Start Date End Date Jose Colin, PCP - General 12/24/03 09/17/08 [address] [place] [address] documented as of this encounter
--- OUTSIDE RECORDS SUMMARY | 2022-02-06 10:27 | XMS_ITS | Encounter Summary ---
:1965 Author Organization [facility] Address [address] [place] [address] Care Team Providers Name Role Phone Jose Colin DO Primary Care Provider [phone] Encounter Details Date Type Department Care Team Description 11/26/2007 Orders Only [facility] DVT (Deep Venous [address] Thrombosis) [place], [place] [phone] Social History Tobacco Use Types Packs/Day Years [...] 14.5 sec Coumadin Yes [facility] INR 4.5 [facility] Specimen Anatomical Collection Method Collection Time Receive d Time (Source) Location / / Volume Laterality 11/26/2007 7:34 AM 8 7:36 CDT AM CDT Jose Colin DO LAB_1 Performing Organization Address City/State/ZIP Code Phon e Number [facility] [phone] [facility] [address] [address] documented in this encounter Visit Diagnoses Diagnosis DVT (deep venous thrombosis) ([facility]) Acute venous embolism and thrombosis of unspecified deep vessels of lower extremity documented in this encounter Care Teams Liaison Officer Relationship Specialty Start Date End Date Jose Colin DO PCP - General 12/24/03 09/17/08 [address] [place] [address] documented as of this encounter
--- OUTSIDE RECORDS SUMMARY | 2022-02-06 10:27 | XMS_ITS | Encounter Summary ---
:1965 Author [facility] Address [address], [place] [address] Care Team Providers Name Role Phone Dungjosé antonioelbaJose medina Primary Care Provider [phone] Reason for Referral Specialty Diagnoses / [...] [place], Test Results [facility] SUPERVISOR STOCK RANCH [address] [facility], [place] [address] Social History Tobacco Use Types [...] rimary documented in this encounter Care Teams Special Collections Librarian Relationship Specialty Start Date End Date Jose Colin DO PCP - General 12/24/03 09/17/08 [address] [place] [address] documented as of this encounter
--- OUTSIDE RECORDS SUMMARY | 2022-02-06 10:27 | XMS_ITS | Encounter Summary ---
:1965 Author Organization [facility] Address [address], [place] [address] Care Team Providers Name Role Phone Jose Colin DO Primary Care Provider [phone] Encounter Details Date Type Department Care Team Description 10/08/2007 [facility] Internal Med arnel Puente Laura [address] [facility], [place] [address] [facility] [phone] [address] [place], [place] [address] (Wo rk) Social History [...] on filedocumented in this encounter Care Teams Tool Repairer Relationship Specialty Start Date End Date Jose Colin DO PCP - General 12/24/03 09/17/[address] [place] [address] documented as of this encounter
--- OUTSIDE RECORDS SUMMARY | 2022-02-06 10:27 | XMS_ITS | Clinical Summary ---
:1965 Author Organization [facility] Address [address], [place] [address] Care Team Providers Name Role Phone Unassigned, [...] for each transition of care or referral. [employer] Allergies Active Allergy Reactions Severity Noted Date [...] Influenza IIV4 (Quadrivalent) 0.5mL 06/12/2017, 03/23/2016, 04/08/2015, ([id number]) 05/30/2013 PPSV23 (Pneumovax) 10/06/2014 Pfizer (Comirnaty) COVID-19, [...] Comments Blood Pressure 120/62 05/25/2021 11:09 AM TOOLMAKER Pulse 59 05/25/2021 11:09 AM TOOLMAKER Temperature 36.7 ??C (98.1 ??F) 05/25/2021 11:09 AM TOOLMAKER Respiratory Rate 16 08/23/2007 1:13 PM CDT Oxygen Saturation 97% 08/23/2007 1:13 PM CDT Inhaled Oxygen Concentration - - Weight 78.8 kg (173 lb 12.8 oz) 05/25/2021 11:09 AM TOOLMAKER Height 160 cm (5' 3) 08/23/2007 1:13 [...] this topic Medical Devices Implanted Type Area International Sourcing Manager Device Shelf Model / Identifier Expiration Date Ser ial / Lot Bone Canc Crushed 60cc - [id number] BIOLOGIC Left: Henna [id number] / Implanted: Qty: 1 on 04/15/2007 at [facility] OTS [id number] / Device Cage Ray Thrd 12x26 - [id number] DEVICE Left: Henna [id number] / Implanted: Qty: 2 on 04/15/2007 at [facility] / [id number] Cage Ray [id number] - [id number] Left: Henna 7-1426 / Implanted: Qty: 1 on 04/15/2007 at [facility] / [id number] Insurance Payer Benefit Plan / Subscriber ID Effective Dates Phone Addre ss Type Group BCBS BCBS OUT OF [id number] 2016-Present [address] [address] [place] [address] (Work) Megan Chio Personal/Family Self 1965 [address] (Home) DAVID LARA [phone] (Work) Advance Directives Latest Code Status on File Code Status Date Activated Date Inactivated Comments Full Code 04/15/2007 8:03 AM 04/19/2007 8:53 PM Care Teams Degreaser Operator Relationship Specialty Start Date End Date Unassigned, Provider PCP - General 09/18/[address] [place] [address]
--- OUTSIDE RECORDS SUMMARY | 2022-02-06 10:27 | XMS_ITS | Encounter Summary ---
:1965 Author Organization [facility] Address [address], [place] [address] Care Team Providers Name Role Phone Jose Colin DO Primary Care Provider [phone] Encounter Details Date Type Department Care Team Description 11/26/2007 [facility] Internal Med Wilda Burton RN [address] [place] [address] [address] [phone] [place], [place] [address] Social History Tobacco Use Types [...] on filedocumented in this encounter Care Teams Manufacturing Laborer Relationship Specialty Start Date End Date Jose Colin, PCP - General 12/24/03 09/17/[address] [place] [address] [address] documented as of this encounter
--- OUTSIDE RECORDS SUMMARY | 2022-02-06 10:27 | XMS_ITS | Encounter Summary ---
:1965 Author Organization [facility] Address [address], [place] [address] Care Team Providers Name Role Phone Jose Colin DO Primary Care Provider [phone] Encounter Details Date Type Department Care Team Description 10/23/2007 Anticoagulation [facility] Internal Med Laura Martinez 205 [facility] Aleyda, [place] [address] [facility] [phone] [address] [place], [place] [address] (Wo rk) Social History [...] on filedocumented in this encounter Care Teams Beverage Host Relationship Specialty Start Date End Date Jose Colin, PCP - General 12/24/03 09/17/08 [address] [place] [address] documented as of this encounter
--- OUTSIDE RECORDS SUMMARY | 2022-02-06 10:27 | XMS_ITS | Encounter Summary ---
:1965 [facility] Address [address] [place] [address] Care Team Providers Name Role Phone Jose Colin DO Primary Care Provider [phone] Encounter Details Date Type Department Care Team Description 10/29/2007 Orders Only [facility] DVT (Deep Venous [address] [place] [address] St. S. Thrombosis) [place], [place] [phone] Social History Tobacco Use Types Packs/Day Years [...] 14.5 sec Coumadin Yes [facility] INR 2.0 [facility] Specimen Anatomical Collection Method Collection Time Receive d Time (Source) Location / / Volume Laterality 10/29/2007 7:50 AM 8 7:51 CDT AM CDT Jose Colin DO LAB_1 Performing Organization Address City/State/ZIP Code Phon e Number [facility] [phone] [facility] [address] [address] documented in this encounter Visit Diagnoses Diagnosis DVT (deep venous thrombosis) ([facility]) Acute venous embolism and thrombosis of unspecified deep vessels of lower extremity documented in this encounter Care Teams Burglar Alarm Inspector Relationship Specialty Start Date End Date Jose Colin DO PCP - General 12/24/03 09/17/08 [address] [place] [address] documented as of this encounter
--- OUTSIDE RECORDS SUMMARY | 2022-02-06 10:27 | XMS_ITS | Encounter Summary ---
:1965 Author [facility] Address [address] [place] [address] Care Team Providers Name Role Phone DixiePipocrhis Allan DO Primary Care Provider [phone] Reason for Visit Reason Onset Date Comments Return Call 11/29/2007 about further testin g Encounter Details Date Type Department Care Team Description 11/29/2007 Telephone [facility] Sandra Cardenas Call (about [address] [facility] A, RN further testing) Clinic [address] [place] [phone] (Wo rk) Social History Tobacco Use Types [...] rimary documented in this encounter Care Teams Rehabilitation Psychologist Relationship Specialty Start Date End Date Jose Colin DO PCP - General 12/24/03 09/17/08 [address] [place] [address] documented as of this encounter
--- OUTSIDE RECORDS SUMMARY | 2022-02-06 10:27 | XMS_ITS | Encounter Summary ---
:1965 Author Organization [facility] Address [address] [place] [address] Care Team Providers Name Role Phone Jose Colin DO Primary Care Provider [phone] Encounter Details Date Type Department Care Team Description 10/16/2007 Orders Only [facility] DVT (Deep Venous [address] [place] [address] St. S. Thrombosis) [place], [place] [id number] Social History Tobacco Use Types Packs/Day Years [...] 14.5 sec Coumadin Yes [facility] INR 1.9 [facility] Specimen Anatomical Collection Method Collection Time Receive d Time (Source) Location / / Volume Laterality 10/16/2007 8:06 AM 8 8:07 CDT AM CDT Jose Colin DO LAB_1 Performing Organization Address City/State/ZIP Code Phon e Number [facility] [phone] [facility] [address] [address] documented in this encounter Visit Diagnoses Diagnosis DVT (deep venous thrombosis) ([facility]) Acute venous embolism and thrombosis of unspecified deep vessels of lower extremity documented in this encounter Care Teams Sr. Director Product Management Relationship Specialty Start Date End Date Jose Colin DO PCP - General 12/24/03 09/17/08 [address] [place] [address] documented as of this encounter
--- OUTSIDE RECORDS SUMMARY | 2022-02-06 10:27 | XMS_ITS | Encounter Summary ---
:1965 Author Organization [facility] Address [address] [address] Care Team Providers Name Role Phone Jose Colin DO Primary Care Provider Encounter Details Date Type Department Care Team Description 12/03/2007 Orders Only [facility] [address] [place] [address] Social History Tobacco Use Types Packs/Day Years [...] on filedocumented in this encounter Care Teams Customer Service Sales Associate Relationship Specialty Start Date End Date Jose Colin DO PCP - General 12/24/03 09/17/08 [address] [place] [address] documented as of this encounter
--- OUTSIDE RECORDS SUMMARY | 2022-02-06 10:27 | XMS_ITS | Encounter Summary ---
:1965 Author Organization [facility] Address [address] [address] Care Team Providers Name Role Phone Jose Colin DO Primary Care Provider [phone] Reason for Visit Reason Onset Date Comments Test Results 12/06/2007 Encounter Details Date Type Department Care Team Description 12/06/2007 Telephone Specialty Center [address] Marcos Harris RN Test Results Care Clinic [address] [place] [address] Social History Tobacco Use Types Packs/Day Years [...] on filedocumented in this encounter Care Teams Routeman Relationship Specialty Start Date End Date Jose Colin, PCP - General 12/24/03 09/17/08 [address] [place] [address] documented as of this encounter
--- OUTSIDE RECORDS SUMMARY | 2022-02-06 10:27 | XMS_ITS | Encounter Summary ---
:1965 Author Organization [facility] Address [address] [address] Care Team Providers Name Role Phone Jose Colin DO Primary Care Provider [phone] Encounter Details Date Type Department Care Team Description 09/23/2007 [facility] Internal Med Wilda Burton RN [address] [place] [address] [address] [place] [phone] [place], [place] [address] Social History Tobacco Use Types [...] on filedocumented in this encounter Care Teams Teacher Hearing Impaired Relationship Specialty Start Date End Date Jose Colin, PCP - General 12/24/03 09/17/[address] [place] [address] [place] [address] documented as of this encounter
--- OUTSIDE RECORDS SUMMARY | 2022-02-06 10:27 | XMS_ITS | Encounter Summary ---
:1965 Author Organization [facility] Address [address], [place] [address] Care Team Providers Name Role Phone Jose Colin DO Primary Care Provider [phone] Encounter Details Date Type Department Care Team Description 12/19/2007 [facility] Internal Med Wilda Burton RN [address] [place] [address] [address] [phone] [place], [place] [address] Social History Tobacco Use Types [...] on filedocumented in this encounter Care Teams Tank Furnace Operator Relationship Specialty Start Date End Date Jose Colin, PCP - General 12/24/03 09/17/[address] [place] [address] [place] [address] documented as of this encounter
--- OUTSIDE RECORDS SUMMARY | 2022-02-06 10:27 | XMS_ITS | Encounter Summary ---
:1965 Author Organization [facility] Address [address] [address] Care Team Providers Name Role Phone Jose Colin DO Primary Care Provider Encounter Details Date Type Department Care Team Description 11/23/2007 Orders Only [facility] Rad[facility] [address] [place] [address] Social History Tobacco Use Types [...] on filedocumented in this encounter Care Teams Bin Operator Relationship Specialty Start Date End Date Jose Colin DO PCP - General 12/24/03 09/17/08 [address] [place] [address] documented as of this encounter
--- OUTSIDE RECORDS SUMMARY | 2022-02-06 10:27 | XMS_ITS | Encounter Summary ---
:1965 [facility] Address [address] [place] [address] Care Team Providers Name Role Phone Unassigned, Provider Primary Care Provider Unavailable Reason for Visit Procedure/Equipment (Routine) - Incomplete Specialty Diagnoses / Procedures Referred By Contact Refer red To Contact Diagnoses Arthralgia, unspecified joint Fibromyalgia Kerrie Iqbal MD Procedures XR Hands 1 View Bilat Arthritis [address] [place], [place] [address] Referral ID Status Reason Start Date Expiration Date Visits V isits Requested Authorized [id number] Incomplete 05/25/2021 08/24/2022 1 1 Encounter Details Date Type Department Care Team Description 05/25/2021 Ancillary [place], Arthralgia, uns pecified joint; Procedure Radiology Kerrie Alvarez MD Fibromyalgia [address] [phone] Social History Tobacco Use Types Packs/Day Years [...] Arthralgia, Resul ts for this BILAT ARTHRITIS CYBER INCIDENT RESPONDER unspecified join t procedure are in Fibromyalgia the results section. documented in this encounter Results XR Hands 1 View Bilat Arthritis (05/25/2021 12:24 PM CYBER INCIDENT RESPONDER) Anatomical Region Laterality Modality Upper Extremity, Hand Digital Radiograph y Specimen (Source) Anatomical Collection Method Collection Time Re ceived Time Location / / Volume Laterality 05/25/2021 12:19 PM CYBER INCIDENT RESPONDER Impressions 05/25/2021 2:16 PM CYBER INCIDENT RESPONDER COMPARISON: ??None. FINDINGS: ??Single view bilateral AP [...] unspecified documented in this encounter Care Teams Head Orthopedic Team Physician Relationship Specialty Start Date End Date Unassigned, Provider PCP - General 09/18/[address] [place] [address] documented as of this encounter
--- OUTSIDE RECORDS SUMMARY | 2022-02-06 10:27 | XMS_ITS | Encounter Summary ---
:1965 Author Organization [facility] Address [address] [place] [address] Care Team Providers Name Role Phone DixieJose Jerrell BOOGIE Primary Care Provider [phone] Reason for Visit Reason Onset Date Comments Test Results 12/10/2007 HIDA scan Encounter Details Date Type Department Care Team Description 12/10/2007 Telephone Specialty Center [address] N[address] Ceja Results ([facility] Luciana Riojas, MANAGER MECHANICAL, scan) [address] [place] [address] [address] [phone] [place] [address] Social History Tobacco Use Types [...] filedocumented in this encounter Care Teams Automotive Sales Associate Relationship Specialty Start Date End Date Jose Colin DO PCP - General 12/24/03 09/17/08 [address] [place] [address] documented as of this encounter
--- OUTSIDE RECORDS SUMMARY | 2022-02-06 10:27 | XMS_ITS | Encounter Summary ---
:1965 Author Organization [facility] Address [address] [place] [address] Care Team Providers Name Role Phone Jose Colin DO Primary Care Provider [phone] Encounter Details Date Type Department Care Team Description 12/31/2007 Orders Only [facility] DVT (Deep Venous [address] Thrombosis) [place], [place] [phone] Social History Tobacco Use Types Packs/Day Years [...] 14.5 sec Coumadin Yes [facility] 2.4 [facility] Specimen Anatomical Collection Method Collection Time Receive d Time (Source) Location / / Volume Laterality 12/31/2007 8:10 AM 8 8:16 CDT AM CDT Jose Colin DO LAB_1 Performing Organization Address City/State/ZIP Code Phon e Number [facility] [phone] [facility] [address] [address] documented in this encounter Visit Diagnoses Diagnosis DVT (deep venous thrombosis) ([facility]) Acute venous embolism and thrombosis of unspecified deep vessels of lower extremity documented in this encounter Care Teams Metallurgical Specialist Relationship Specialty Start Date End Date Jose Colin DO PCP - General 12/24/03 09/17/08 [address] [place] [address] documented as of this encounter
--- OUTSIDE RECORDS SUMMARY | 2022-02-06 10:27 | XMS_ITS | Encounter Summary ---
:1965 Author Organization [facility] Address [address] [place] [address] Care Team Providers Name Role Phone Unassigned, Provider Primary Care Provider Unavailable Encounter Details Date Type Department Care Team Description 05/25/2021 Lab Visit [facility] Arthralgia, unspecified join t; [address] [facility] [place] [address] Social History Tobacco Use Types Packs/Day Years [...] PM Arthralgia, Results for this ANTIBODY (CONSTANCE DIRECTOR COMMUNICATIONS unspecified join t procedure are in ASSAY) Fibromyalgia the results section. C-REACTIVE PROTEIN Routine 05/25/2021 12:16 PM Arthralgia, Re sults for this DIRECTOR COMMUNICATIONS unspecified join t procedure are in Fibromyalgia the results section. CK, TOTAL Routine 05/25/2021 12:16 PM Arthralgia, Results for this DIRECTOR COMMUNICATIONS unspecified join t procedure are in Fibromyalgia the results section. ESR Routine 05/25/2021 12:16 PM Arthralgia, Results for this DIRECTOR COMMUNICATIONS unspecified join t procedure are in Fibromyalgia the results section. documented in this encounter Results CPK - CK Total (05/25/2021 12:16 PM DIRECTOR COMMUNICATIONS) P athologist Signature CK, Total 64 29 - 168 05/25/2021 [facility] U/L 3:03 PM [facility] COMMUN[facility]S LABOR[facility]ORY Specimen Anatomical Collection Method / Collection Time Recei terell Time (Source) Location / Volume Laterality Blood Venipuncture / 05/25/2021 12:16 1 Unknown PM DIRECTOR COMMUNICATIONS 12:16 PM DIRECTOR COMMUNICATIONS Kerrie Iqbal MD LAB_1 Performing Organization Address City/[facility]/ZIP Code Phon e Nar[facility] [address] [place] [address] ESR - Sedimentation Rate (05/25/2021 12:16 PM DIRECTOR COMMUNICATIONS) Patholo gist Method Time Signature Sedimentation Rate 6 0 - 20 05/25/2021 [facility] mm/hr 12:56 PM DIRECTOR COMMUNICATIONS LABOR[facility]ORY Specimen Anatomical Collection Method / Collection Time Recei terell Time (Source) Location / Volume Laterality Blood Venipuncture / 05/25/2021 12:16 1 Unknown PM DIRECTOR COMMUNICATIONS 12:16 PM DIRECTOR COMMUNICATIONS Kerrie qIbal MD LAB_1 Performing Organization Address [facility] Phon e Number [facility] [address] [place] [address] CVC-Tvyk-QT-DNA by Constance Assay (05/25/2021 12:16 PM DIRECTOR COMMUNICATIONS) P athologist Signature Anti-dsDNA Ab <8.0 <8.0 IU/mL 06/03/2021 [facility] (Constance Assay) 5:06 PM DIRECTOR COMMUNICATIONS INTERFACED Specimen Anatomical Collection Method / Collection Time Recei terell Time (Source) Location / Volume Laterality Blood Venipuncture / 05/25/2021 12:16 1 Unknown PM DIRECTOR COMMUNICATIONS 12:16 PM DIRECTOR COMMUNICATIONS Narrative [facility] INTERFACED - 06/03/2021 5:06 PM DIRECTOR COMMUNICATIONS Test(s) [id number] Ab by Constance(RDL) was developed and its performance charac teristics determined by [facility]. It has not been cleared or a pproved by the Food and Drug Administration. Performed at: ??01 - [place] [address] [place] [address] A ??[id number] Presetter Operator: Vadim Palacios MD, Phone: ? ?[phone] Kerrie Iqbal MD LAB_1 Performing Organization Address City/State/ZIP Code Phon e Number [facility] INTERFACED [address] [address] [place] [address] CRP - C Reactive Protein (05/25/2021 12:16 PM DIRECTOR COMMUNICATIONS) P athologist Signature C-Reactive <0.5 0.0 - 0.7 05/25/2021 [facility] Protein mg/dL 3:03 PM DIRECTOR COMMUNICATIONS LABORATORY Specimen Anatomical Collection Method / Collection Time Recei terell Time (Source) Location / Volume Laterality Blood Venipuncture / 05/25/2021 12:16 1 Unknown PM DIRECTOR COMMUNICATIONS 12:16 PM DIRECTOR COMMUNICATIONS Kerrie Iqbal MD LAB_1 Performing Organization Address City/State/ZIP Code Phon e Number [facility] [address] [place] [address] documented in this encounter Visit Diagnoses Diagnosis Arthralgia, unspecified joint Fibromyalgia Mylagia and myositis, unspecified documented in this encounter Care Teams Network Desktop Support Specialist Relationship Specialty Start Date End Date Unassigned, Provider PCP - General 09/18/08 [address] [place] [address] documented as of this encounter
--- OUTSIDE RECORDS SUMMARY | 2022-02-06 10:27 | XMS_ITS | Encounter Summary ---
:1965 [facility] Address [address] [place] [address] Care Team Providers Name Role Phone Jose Colin DO Primary Care Provider [phone] Encounter Details Date Type Department Care Team Description 10/29/2007 Anticoagulation [facility] Internal Sandy Light RN [address] [place] [address] [place], [place] [address] (Wo rk) Social History Tobacco Use Types [...] on filedocumented in this encounter Care Teams Outside Sales Account Manager Relationship Specialty Start Date End Date Jose Colin DO PCP - General 12/24/03 09/17/[address] [place] [address] documented as of this encounter
--- OUTSIDE RECORDS SUMMARY | 2022-02-06 10:27 | XMS_ITS | Encounter Summary ---
:1965 Author Organization [facility] Address [address] [place] [address] Care Team Providers Name Role Phone Jose Stack DO Primary Care Provider [phone] Reason for Visit Reason Onset Date Comments Refill 09/23/2007 Encounter Details Date Type Department Care Team Description 09/23/2007 Refill [facility] Internal Med Wilda Burton RN Refill [address] [place] [address] [address] [phone] [place], [place] [address] Social History Tobacco Use Types [...] migrainosus documented in this encounter Care Teams Solvent Plant Operator Relationship Specialty Start Date End Date Jose Stack, PCP - General 12/24/03 09/17/[address] [place] [address] documented as of this encounter
--- OUTSIDE RECORDS SUMMARY | 2022-02-06 10:27 | XMS_ITS | Encounter Summary ---
:1965 Author Organization [facility] Address [address] [place] [address] Care Team Providers Name Role Phone Jose Colin DO Primary Care Provider [phone] Encounter Details Date Type Department Care Team Description 01/27/2008 Orders Only [facility] DVT (Deep Venous [address] Thrombosis) [place], [place] [id number] Social History Tobacco Use Types Packs/Day Years [...] - [facility] 14.5 sec [facility] Specimen Anatomical Collection Method Collection Time Receive d Time (Source) Location / / Volume Laterality 01/27/2008 7:37 AM 8 8:00 CDT AM CDT Jose Colin DO LAB_1 Performing Organization Address City/State/ZIP Code Phon e Number [facility] [phone] [facility] [address] [address] documented in this encounter Visit Diagnoses Diagnosis DVT (deep venous thrombosis) ([facility]) Acute venous embolism and thrombosis of unspecified deep vessels of lower extremity documented in this encounter Care Teams Reference Services Head Relationship Specialty Start Date End Date Jose Colin DO PCP - General 12/24/03 09/17/08 [address] [place] [address] documented as of this encounter
--- OUTSIDE RECORDS SUMMARY | 2022-02-06 10:27 | XMS_ITS | Encounter Summary ---
:1965 Author Organization [facility] Address [address] [place] [address] Care Team Providers Name Role Phone Jose Colin DO Primary Care Provider [phone] Encounter Details Date Type Department Care Team Description 10/03/2007 Orders Only [facility] DVT (Deep Venous [address] Thrombosis) [place], [place] [phone] Social History Tobacco Use Types Packs/Day Years [...] 14.5 sec Coumadin Yes [facility] 1.4 COUNTS INCLUDE 234 B[facility]S [facility] Specimen Anatomical Collection Method Collection Time Receive d Time (Source) Location / / Volume Laterality 10/03/2007 7:27 AM 8 7:28 CDT AM CDT Jose Colin DO LAB_1 Performing Organization Address City/State/ZIP Code Phon e Number [facility] [phone] [facility] [address] [address] documented in this encounter Visit Diagnoses Diagnosis DVT (deep venous thrombosis) ([facility]) Acute venous embolism and thrombosis of unspecified deep vessels of lower extremity documented in this encounter Care Teams Head And Neck Surgeon Relationship Specialty Start Date End Date Jose Colin DO PCP - General 12/24/03 09/17/08 [address] [place] [address] documented as of this encounter
--- OUTSIDE RECORDS SUMMARY | 2022-02-06 10:27 | XMS_ITS | Encounter Summary ---
:1965 Author Organization [facility] Address [address] [address] Care Team Providers Name Role Phone DungJose gonzalez Primary Care Provider [phone] Encounter Details Date Type Department Care Team Description 01/27/2008 Anticoagulation [facility] Internal Brigido Burch DVT ( Deep Venous Medicine RN Thrombosis) (Primary [address] [facility] Dx) [place] [address] CLINIC [phone] [address] [place], [place] [id number] Social History Tobacco Use Types Packs/Day Years [...] DVT (deep venous thrombosis) ([facility]) - Argelia bravo Acute venous embolism and thrombosis of unspecified deep vessels of lower extremity documented in this encounter Care Teams Silver Designer Relationship Specialty Start Date End Date Jose Colin, PCP - General 12/24/03 09/17/08 [address] [place] [address] documented as of this encounter
--- OUTSIDE RECORDS SUMMARY | 2022-02-06 10:27 | XMS_ITS | Encounter Summary ---
:1965 Author Organization [facility] Address [address], [place] [address] Care Team Providers Name Role Phone DungJose gonzalez Primary Care Provider [phone] Encounter Details Date Type Department Care Team Description 11/19/2007 Orders Only [facility] Tamra Ro MD Gastroenterology [address] [place] [address] [place] [address] [phone] Social History Tobacco Use Types Packs/Day Years [...] PAIN, OTHER SPECIFIED SITE... RUQ PAIN ?# [id number] HEPATOBILIARY IMAGING WITH EJECTION FRAC TION, 12/03/07. INDICATION: ??Abdominal pain and right u pper quadrant pain. TECHNIQUE: ??8.8 mCi of [id number] i ntravenous and 1.8 mcg CCK infused. [...] quadrant pain. Narrative 11/27/2007 10:47 PM CDT #[id number], RUQ PAIN ULTRASOUND ABDOMEN 11/23/07: COMPARISON: ??None. [...] on filedocumented in this encounter Care Teams Geophysical Support Specialist Relationship Specialty Start Date End Date Joes Colin, PCP - General 12/24/03 09/17/08 [address] [place] [address] documented as of this encounter
--- OUTSIDE RECORDS SUMMARY | 2022-02-06 10:27 | XMS_ITS | Encounter Summary ---
:1965 Author Organization [facility] Address [address] [place] [address] Care Team Providers Name Role Phone DixieJose Jerrell BOOGIE Primary Care Provider [phone] Reason for Referral Specialty Diagnoses / Procedures Referred By Contact Refer red To Contact Thaddeus Ro MD [address] [place] [address] Referral ID Status Reason Start Date Expiration Date Visits Requ ested Visits Authorized Reason for Visit Reason Comments LOOSE STOOLS Encounter Details Date Type Department Care Team Description 11/19/2007 Office Visit [facility] Thaddeus Ro, Ashleyo omega Pain, Right [facility] [address] (Primary Dx) [address] [place] [address] Social History Tobacco Use Types Packs/Day [...] prior, this is done over at the [address] [place] [address] on [facility]. If you need to cancel or reschedule please call [phone]. If you have any questions or concerns please call [phone]. Option 3 for the nurse line. documented [...] 11/19/2007 15:40:18 Transcribed: 11/20/2007 13:41:47 Doc #: [id number] cc:Jose Colin DO, Referring Physician 1 Page 1 Patient Name: MEGAN CHOI Visit Date: 11/19/2007 CONFIDENTIAL MEDICAL RECORD [address] [address] Page 1 Patient: MEGAN CHOI Location: [facility] HPN: [id number] Visit Date: 11/19/2007 Date of : 1965 [...] rimary documented in this encounter Care Teams Playground Monitor Relationship Specialty Start Date End Date Jose Colin DO PCP - General 12/24/03 09/17/08 [address] [place] [address] documented as of this encounter
--- OUTSIDE RECORDS SUMMARY | 2022-02-06 10:27 | XMS_ITS | Encounter Summary ---
:1965 Author Organization [facility] Address [address] [place] [address] Care Team Providers Name Role Phone Jose Colin DO Primary Care Provider [phone] Encounter Details Date Type Department Care Team Description 12/05/2007 Orders Only [facility] DVT (Deep Venous [address] Thrombosis) [place], [place] [id number] Social History Tobacco Use Types Packs/Day Years [...] 14.5 sec Coumadin Yes [facility] 3.7 [facility] Specimen Anatomical Collection Method Collection Time Receive d Time (Source) Location / / Volume Laterality 12/05/2007 7:25 AM 8 7:48 CDT AM CDT Jose Colin DO LAB_1 Performing Organization Address City/State/ZIP Code Phon e Number [facility] [phone] [facility] [address] [address] documented in this encounter Visit Diagnoses Diagnosis DVT (deep venous thrombosis) ([facility]) Acute venous embolism and thrombosis of unspecified deep vessels of lower extremity documented in this encounter Care Teams Boot Turner Relationship Specialty Start Date End Date Jose Colin DO PCP - General 12/24/03 09/17/08 [address] [place] [address] documented as of this encounter
--- OUTSIDE RECORDS SUMMARY | 2022-02-06 10:27 | XMS_ITS | Encounter Summary ---
:1965 Author Organization [facility] Address [address] [place] [address] Care Team Providers Name Role Phone Jose Colin DO Primary Care Provider [phone] Encounter Details Date Type Department Care Team Description 10/23/2007 Orders Only [facility] DVT (Deep Venous [address] Thrombosis) [place], [place] [id number] Social History Tobacco Use Types Packs/Day Years [...] 12.0 - [facility] 14.5 sec Coumadin Yes [facility] Specimen Anatomical Collection Method Collection Time Receive d Time (Source) Location / / Volume Laterality 10/23/2007 7:31 AM 8 7:33 CDT AM CDT Jose Colin DO LAB_1 Performing Organization Address City/State/ZIP Code Phon e Number [facility] [phone] [facility] [address] [address] documented in this encounter Visit Diagnoses Diagnosis DVT (deep venous thrombosis) ([facility]) Acute venous embolism and thrombosis of unspecified deep vessels of lower extremity documented in this encounter Care Teams Behavior Interventionist Relationship Specialty Start Date End Date Jose Colin DO PCP - General 12/24/03 09/17/08 [address] [place] [address] documented as of this encounter
--- OUTSIDE RECORDS SUMMARY | 2022-02-06 10:28 | XMS_ITS | Encounter Summary ---
:1965 Author [facility] Address [address] [place] [address] Care Team Providers Name Role Phone Jose Colin DO Primary Care Provider [phone] Encounter Details Date Type Department Care Team Description 07/15/2007 Orders Only [facility] DVT (Deep Venous [address] Thrombosis) [place], [place] [id number] Social History Tobacco Use Types Packs/Day Years [...] DVT (Deep Venous Resul ts for this BLAST FURNACE OPERATOR Thrombosis) procedure are i n the results section . documented in this encounter Results (ABNORMAL) INR/PROTIME (07/15/2007 7:31 AM BLAST FURNACE OPERATOR) P athologist Signature Protime 26.3 (H) 12.0 - [facility] 14.5 sec Coumadin Yes [facility]R 2.3 [facility] Specimen Anatomical Collection Method Collection Time Receive d Time (Source) Location / / Volume Laterality 07/15/2007 7:31 AM 8 7:32 BLAST FURNACE OPERATOR AM BLAST FURNACE OPERATOR Jose Colin DO LAB_1 Performing Organization Address City/State/ZIP Code Phon e Number [facility] [phone] [facility] [address] [address] documented in this encounter Visit Diagnoses Diagnosis DVT (deep venous thrombosis) ([facility]) Acute venous embolism and thrombosis of unspecified deep vessels of lower extremity documented in this encounter Care Teams Plastic Duplicator Relationship Specialty Start Date End Date Jose Colin DO PCP - General 12/24/03 09/17/08 [address] [place] [address] documented as of this encounter
--- OUTSIDE RECORDS SUMMARY | 2022-02-06 10:28 | XMS_ITS | Encounter Summary ---
:1965 Author [facility] Address [address] [place] [address] Care Team Providers Name Role Phone Jose Colin DO Primary Care Provider [phone] Encounter Details Date Type Department Care Team Description 05/29/2007 Orders Only [facility] DVT (Deep Venous [address] Thrombosis) [place], [place] [id number] Social History Tobacco Use Types Packs/Day Years [...] DVT (Deep Venous Resul ts for this HARBOR DEPARTMENT MANAGER Thrombosis) procedure are i n the results section . documented in this encounter Results (ABNORMAL) INR/PROTIME (05/29/2007 8:08 AM HARBOR DEPARTMENT MANAGER) P athologist Signature Protime 41.3 (H) 12.0 - [facility] 14.5 sec Coumadin Yes [facility] INR 4.2 [facility] Specimen Anatomical Collection Method Collection Time Receive d Time (Source) Location / / Volume Laterality 05/29/2007 8:08 AM 7 8:09 HARBOR DEPARTMENT MANAGER AM HARBOR DEPARTMENT MANAGER Jose Colin DO LAB_1 Performing Organization Address City/State/ZIP Code Phon e Number [facility] [phone] [facility] [address] [address] documented in this encounter Visit Diagnoses Diagnosis DVT (deep venous thrombosis) ([facility]) Acute venous embolism and thrombosis of unspecified deep vessels of lower extremity documented in this encounter Care Teams Computer Game Designer Relationship Specialty Start Date End Date Jose Colin DO PCP - General 12/24/03 09/17/08 [address] [place] [address] documented as of this encounter
--- OUTSIDE RECORDS SUMMARY | 2022-02-06 10:28 | XMS_ITS | Encounter Summary ---
:1965 Author Organization [facility] Address [address] [place] [address] Care Team Providers Name Role Phone Jose Colin DO Primary Care Provider [phone] Encounter Details Date Type Department Care Team Description 08/12/2007 Orders Only [facility] DVT (Deep Venous [address] Thrombosis) [place], [place] [id number] Social History Tobacco Use Types Packs/Day Years [...] DVT (Deep Venous Resul ts for this [address] [facility] [facility]ILOT Thrombosis) procedure are i n the results section . documented in this encounter Results (ABNORMAL) INR/PROTIME (08/12/2007 7:[address]) P athologist Signature Protime 33.3 (H) 12.0 - [facility] 14.5 sec Coumadin Yes [facility]R 3.2 [facility] Specimen Anatomical Collection Method Collection Time Receive d Time (Source) Location / / Volume Laterality 08/12/2007 7:33 AM 8 7:[address] [facility] Jose Colin DO LAB_1 Performing Organization Address City/State/ZIP Code Phon e Number [facility] [phone] [facility] [address] [address] documented in this encounter Visit Diagnoses Diagnosis DVT (deep venous thrombosis) ([facility]) Acute venous embolism and thrombosis of unspecified deep vessels of lower extremity documented in this encounter Care Teams Oral And Maxillofacial Surgeon Relationship Specialty Start Date End Date Jose Colin DO PCP - General 12/24/03 09/17/08 [address] [place] [address] documented as of this encounter
--- OUTSIDE RECORDS SUMMARY | 2022-02-06 10:28 | XMS_ITS | Encounter Summary ---
:1965 Author Organization [facility] Address [address], [place] [address] Care Team Providers Name Role Phone Jose Colin DO Primary Care Provider [phone] Encounter Details Date Type Department Care Team Description 06/03/2007 [facility] Internal Med Wilda Burton RN [address] [place] [address] [address] [phone] [place], [place] [address] Social History Tobacco Use Types Packs/Day Years Used Date Smoking Tobacco: Never Alcohol Use Standard Drinks/Week Comments Yes 0 (1 standard drink = 0.6 oz pure alcoho l) rarely Sex Assigned at Date Recorded Not on file documented as of this encounter Progress Notes Wilda Anand - 06/03/2007 2:23 PM CST See Anticoagulation Flowsheet for details. Wilda Burch RN OR ENGINEER documented in this encounter Plan of Treatment Not on filedocumented as of this encounter Visit Diagnoses Not on filedocumented in this encounter Care Teams Organ Installer Relationship Specialty Start Date End Date Jose Colin, PCP - General 12/24/03 09/17/08 [address] [facility] [address] documented as of this encounter
--- OUTSIDE RECORDS SUMMARY | 2022-02-06 10:28 | XMS_ITS | Encounter Summary ---
:1965 Author Organization [facility] Address [address], [place] [address] Care Team Providers Name Role Phone Jose Colin DO Primary Care Provider [phone] Encounter Details Date Type Department Care Team Description 06/10/2007 [facility] Internal Med Wilda Burton RN [address] [place] [address] [address] [phone] [place], [place] [address] Social History Tobacco Use Types Packs/Day Years Used Date Smoking Tobacco: Never Alcohol Use Standard Drinks/Week Comments Yes 0 (1 standard drink = 0.6 oz pure alcoho l) rarely Sex Assigned at Date Recorded Not on file documented as of this encounter Progress Notes Wilda Anand - 06/10/2007 5:11 PM CST See Anticoagulation Flowsheet for details. Wilda Burch RN RIBUTION ACCOUNTING CLERK documented in this encounter Plan of Treatment Not on filedocumented as of this encounter Visit Diagnoses Not on filedocumented in this encounter Care Teams Denture Model Maker Relationship Specialty Start Date End Date Jose Colin, PCP - General 12/24/03 09/17/08 [address] [facility] [address] documented as of this encounter
--- OUTSIDE RECORDS SUMMARY | 2022-02-06 10:28 | XMS_ITS | Encounter Summary ---
:1965 Author Organization [facility] Address [address] [address] Care Team Providers Name Role Phone Jose Colin DO Primary Care Provider [phone] Encounter Details Date Type Department Care Team Description 08/12/2007 [facility] Internal Med Wilda Burton RN [address] [place] [address] [address] [phone] [place], [place] [address] Social History Tobacco Use Types Packs/Day Years Used Date Smoking Tobacco: Never Alcohol Use Standard Drinks/Week Comments Yes 0 (1 standard drink = 0.6 oz pure alcoho l) rarely Sex Assigned at Date Recorded Not on file documented as of this encounter Progress Notes Wilda Anand - 08/12/2007 2:19 PM CST See Anticoagulation Flowsheet for details. Wilda Burch RN BALL CLUB MANAGER documented in this encounter Plan of Treatment Not on filedocumented as of this encounter Visit Diagnoses Not on filedocumented in this encounter Care Teams Cream Dumper Relationship Specialty Start Date End Date Jose Colin, PCP - General 12/24/03 09/17/08 [address] [facility] [address] documented as of this encounter
--- OUTSIDE RECORDS SUMMARY | 2022-02-06 10:28 | XMS_ITS | Encounter Summary ---
:1965 Author Organization [facility] Address [address] [address] Care Team Providers Name Role Phone Jose Colin DO Primary Care Provider [phone] Encounter Details Date Type Department Care Team Description 07/15/2007 [facility] Internal Med Wilda Burton RN [address] [place] [address] [address] [phone] [place], [place] [address] Social History Tobacco Use Types Packs/Day Years Used Date Smoking Tobacco: Never Alcohol Use Standard Drinks/Week Comments Yes 0 (1 standard drink = 0.6 oz pure alcoho l) rarely Sex Assigned at Date Recorded Not on file documented as of this encounter Progress Notes Wilda Anand - 07/15/2007 2:38 PM CST See Anticoagulation Flowsheet for details. Wilda Burch RN MARKETER SUPERVISOR documented in this encounter Plan of Treatment Not on filedocumented as of this encounter Visit Diagnoses Not on filedocumented in this encounter Care Teams Engraver Flatware Relationship Specialty Start Date End Date Jose Colin, PCP - General 12/24/03 09/17/08 [address] [facility] [address] documented as of this encounter
--- OUTSIDE RECORDS SUMMARY | 2022-02-06 10:28 | XMS_ITS | Encounter Summary ---
:1965 Author Organization [facility] Address [address] [place] [address] Care Team Providers Name Role Phone Jose Colin DO Primary Care Provider [phone] Encounter Details Date Type Department Care Team Description 06/17/2007 Orders Only [facility] DVT (Deep Venous [address] Thrombosis) [place], [place] [id number] Social History Tobacco Use Types Packs/Day Years [...] DVT (Deep Venous Resul ts for this HR ANALYST Thrombosis) procedure are i n the results section . documented in this encounter Results (ABNORMAL) INR/PROTIME (06/17/2007 8:01 AM HR ANALYST) P athologist Signature Protime 30.0 (H) 12.0 - [facility] 14.5 sec Coumadin Yes [facility] Specimen Anatomical Collection Method Collection Time Receive d Time (Source) Location / / Volume Laterality 06/17/2007 8:01 AM 8 8:02 HR ANALYST AM HR ANALYST Jose Colin DO LAB_1 Performing Organization Address City/State/ZIP Code Phon e Number [facility] [phone] [facility] [address] [address] documented in this encounter Visit Diagnoses Diagnosis DVT (deep venous thrombosis) ([facility]) Acute venous embolism and thrombosis of unspecified deep vessels of lower extremity documented in this encounter Care Teams Veterinary Technician Instructor Relationship Specialty Start Date End Date Jose Colin DO PCP - General 12/24/03 09/17/08 [address] [place] [address] documented as of this encounter
--- OUTSIDE RECORDS SUMMARY | 2022-02-06 10:28 | XMS_ITS | Encounter Summary ---
:1965 Author Organization [facility] Address [address] [place] [address] Care Team Providers Name Role Phone Jose Colin DO Primary Care Provider [phone] Encounter Details Date Type Department Care Team Description 06/10/2007 Orders Only [facility] DVT (Deep Venous [address] Thrombosis) [place], [place] [id number] Social History Tobacco Use Types Packs/Day Years [...] DVT (Deep Venous Resul ts for this WHARFINGER CHIEF Thrombosis) procedure are i n the results section . documented in this encounter Results (ABNORMAL) INR/PROTIME (06/10/2007 9:04 AM WHARFINGER CHIEF) P athologist Signature Protime 28.8 (H) 12.0 - [facility] 14.5 sec Coumadin Yes [facility]R 2.6 [facility] Specimen Anatomical Collection Method Collection Time Receive d Time (Source) Location / / Volume Laterality 06/10/2007 9:04 AM 7 9:05 WHARFINGER CHIEF AM WHARFINGER CHIEF Jose Colin DO LAB_1 Performing Organization Address City/State/ZIP Code Phon e Number [facility] [phone] [facility] [address] [address] documented in this encounter Visit Diagnoses Diagnosis DVT (deep venous thrombosis) ([facility]) Acute venous embolism and thrombosis of unspecified deep vessels of lower extremity documented in this encounter Care Teams Pole Shaver Helper Relationship Specialty Start Date End Date Jose Colin DO PCP - General 12/24/03 09/17/08 [address] [place] [address] documented as of this encounter
--- OUTSIDE RECORDS SUMMARY | 2022-02-06 10:28 | XMS_ITS | Encounter Summary ---
:1965 Author Organization [facility] Address [address], [place] [address] Care Team Providers Name Role Phone Jose Colin DO Primary Care Provider [phone] Encounter Details Date Type Department Care Team Description 07/01/2007 [facility] Internal Med Wilda Burton RN [address] [place] [address] [address] [phone] [place], [place] [address] Social History Tobacco Use Types Packs/Day Years Used Date Smoking Tobacco: Never Alcohol Use Standard Drinks/Week Comments Yes 0 (1 standard drink = 0.6 oz pure alcoho l) rarely Sex Assigned at Date Recorded Not on file documented as of this encounter Progress Notes Wilda Anand - 07/01/2007 4:11 PM CST See Anticoagulation Flowsheet for details. Wilda Burch RN NET STRINGER documented in this encounter Plan of Treatment Not on filedocumented as of this encounter Visit Diagnoses Not on filedocumented in this encounter Care Teams Forepart Laster Relationship Specialty Start Date End Date Jose Colin, PCP - General 12/24/03 09/17/08 [address] [facility] [address] documented as of this encounter
--- OUTSIDE RECORDS SUMMARY | 2022-02-06 10:28 | XMS_ITS | Encounter Summary ---
:1965 Author Organization [facility] Address [address] [address] Care Team Providers Name Role Phone Jose Colin DO Primary Care Provider [phone] Encounter Details Date Type Department Care Team Description 05/30/2007 [facility] Internal Med Wilda Burton RN [address] [place] [address] [address] [phone] [place], [place] [address] Social History Tobacco Use Types Packs/Day Years Used Date Smoking Tobacco: Never Alcohol Use Standard Drinks/Week Comments Yes 0 (1 standard drink = 0.6 oz pure alcoho l) rarely Sex Assigned at Date Recorded Not on file documented as of this encounter Progress Notes Wilda Anand - 05/30/2007 4:51 PM CST See Anticoagulation Flowsheet for details. Wilda Burch RN RVISOR DOG LICENSE OFFICER documented in this encounter Plan of Treatment Not on filedocumented as of this encounter Visit Diagnoses Not on filedocumented in this encounter Care Teams Loan Officer Assistant Relationship Specialty Start Date End Date Jose Colin, PCP - General 12/24/03 09/17/08 [address] [facility]DR[facility] HEALTHCAREDEB[facility] [address] documented as of this encounter
--- OUTSIDE RECORDS SUMMARY | 2022-02-06 10:28 | XMS_ITS | Encounter Summary ---
:1965 Author Organization [facility] Address [address] [place] [address] Care Team Providers Name Role Phone Jose Colin DO Primary Care Provider [phone] Encounter Details Date Type Department Care Team Description 08/26/2007 Orders Only [facility] DVT (Deep Venous [address] Thrombosis) [place], [place] [id number] Social History Tobacco Use Types Packs/Day Years [...] 12.0 - [facility] 14.5 sec Coumadin Yes [facility] Specimen Anatomical Collection Method Collection Time Receive d Time (Source) Location / / Volume Laterality 08/26/2007 7:44 AM 8 7:45 CDT AM CDT Jose Colin DO LAB_1 Performing Organization Address City/State/ZIP Code Phon e Number [facility] [phone] [facility] [address] [address] documented in this encounter Visit Diagnoses Diagnosis DVT (deep venous thrombosis) ([facility]) Acute venous embolism and thrombosis of unspecified deep vessels of lower extremity documented in this encounter Care Teams Wealth Management Director Relationship Specialty Start Date End Date Jose Colin DO PCP - General 12/24/03 09/17/08 [address] [place] [address] documented as of this encounter
--- OUTSIDE RECORDS SUMMARY | 2022-02-06 10:28 | XMS_ITS | Encounter Summary ---
:1965 Author Organization [facility] Address [address] [address] Care Team Providers Name Role Phone Jose Colin DO Primary Care Provider [phone] Encounter Details Date Type Department Care Team Description 06/12/2007 [facility] Internal Med Thea Carmona, RERE [address] [place] [address] [address] [phone] [place], [place] [address] Social History Tobacco Use [...] on filedocumented in this encounter Care Teams Water Proofer Relationship Specialty Start Date End Date Jose Colin DO PCP - General 12/24/03 09/17/[address] [place] [address] documented as of this encounter
--- OUTSIDE RECORDS SUMMARY | 2022-02-06 10:28 | XMS_ITS | Encounter Summary ---
:1965 Author Organization [facility] Address [address], [place] [address] Care Team Providers Name Role Phone Jose Colin DO Primary Care Provider [phone] Encounter Details Date Type Department Care Team Description 06/17/2007 [facility] Internal Med Wilda Burton RN 205 [place] [address] [address] [phone] [place], [place] [address] Social History Tobacco Use Types Packs/Day Years Used Date Smoking Tobacco: Never Alcohol Use Standard Drinks/Week Comments Yes 0 (1 standard drink = 0.6 oz pure alcoho l) rarely Sex Assigned at Date Recorded Not on file documented as of this encounter Progress Notes Wilda Anand - 06/17/2007 3:51 PM CST See Anticoagulation Flowsheet for details. Wilda Burch RN ER RETRAINING INSTRUCTOR documented in this encounter Plan of Treatment Not on filedocumented as of this encounter Visit Diagnoses Not on filedocumented in this encounter Care Teams An/Sqq 89(V)15 Sonar System Journeyman Relationship Specialty Start Date End Date Jose Colin, PCP - General 12/24/03 09/17/08 [address] [facility] [address] documented as of this encounter
--- OUTSIDE RECORDS SUMMARY | 2022-02-06 10:28 | XMS_ITS | Encounter Summary ---
:1965 Author Organization [facility] Address [address] [place] [address] Care Team Providers Name Role Phone Jose Colin DO Primary Care Provider [phone] Encounter Details Date Type Department Care Team Description 06/03/2007 Orders Only [facility] DVT (Deep Venous [address] Thrombosis) [place], [place] [id number] Social History Tobacco Use Types Packs/Day Years [...] DVT (Deep Venous Resul ts for this FISHING INSTRUCTOR Thrombosis) procedure are i n the results section . documented in this encounter Results (ABNORMAL) INR/PROTIME (06/03/2007 8:53 AM FISHING INSTRUCTOR) P athologist Signature Protime 24.7 (H) 12.0 - [facility] 14.5 sec [facility]mad[facility] Yes [facility]2 [facility] Specimen Anatomical Collection Method Collection Time Receive d Time (Source) Location / / Volume Laterality 06/03/2007 8:53 AM 7 8:54 FISHING INSTRUCTOR AM FISHING INSTRUCTOR Jose Colin DO LAB_1 Performing Organization Address City/State/ZIP Code Phon e Number [facility] [phone] [facility] [address] [address] documented in this encounter Visit Diagnoses Diagnosis DVT (deep venous thrombosis) ([facility]) Acute venous embolism and thrombosis of unspecified deep vessels of lower extremity documented in this encounter Care Teams Pmo Consultant Relationship Specialty Start Date End Date Jose Colin DO PCP - General 12/24/03 09/17/08 [address] [place] [address] documented as of this encounter
--- OUTSIDE RECORDS SUMMARY | 2022-02-06 10:28 | XMS_ITS | Encounter Summary ---
:1965 Author Organization [facility] Address [address] [place] [address] Care Team Providers Name Role Phone Jose Colin DO Primary Care Provider [phone] Encounter Details Date Type Department Care Team Description 08/26/2007 Orders Only [facility] Internal Med icine Jose Colin, 205 [place] [address] 598 [facility] [phone] [place] [address] (Wo rk) Social History [...] on filedocumented in this encounter Care Teams Newscast Producer Relationship Specialty Start Date End Date Jose Colin DO PCP - General 12/24/03 09/17/08 [address] [place] [address] documented as of this encounter
--- OUTSIDE RECORDS SUMMARY | 2022-02-06 10:28 | XMS_ITS | Encounter Summary ---
:1965 Author Organization [facility] Address [address], [place] [address] Care Team Providers Name Role Phone Jose Colin DO Primary Care Provider [phone] Encounter Details Date Type Department Care Team Description 08/28/2007 Orders Only [facility] Radiology [address] [place] [address] Social History Tobacco Use Types [...] on filedocumented in this encounter Care Teams Lineman Relationship Specialty Start Date End Date Jose Colin DO PCP - General 12/24/03 09/17/08 [address] [place] [place] [address] documented as of this encounter
--- OUTSIDE RECORDS SUMMARY | 2022-02-06 10:28 | XMS_ITS | Encounter Summary ---
:1965 Author Organization [facility] Address [address] [place] [address] Care Team Providers Name Role Phone Jose Colin DO Primary Care Provider [phone] Reason for Visit Reason Onset Date Comments Careplan: Anticoagulation 05/30/2007 Encounter Details Date Type Department Care Team Description 05/30/2007 Telephone [facility] Internal Stephanie Colinplan: [facility] Jose Allan DO 205 [facility] 599 [place] [address] [place], [place] [phone] [address] Social History Tobacco Use Types Packs/Day Years Used Date Smoking Tobacco: Never Alcohol Use Standard Drinks/Week Comments Yes 0 (1 standard drink = 0.6 oz pure alcoho l) rarely Sex Assigned at Date Recorded Not on file documented as of this encounter Nursing Notes Wilda Anand - 05/30/2007 4:51 PM CST See Anticoagulation Flowsheet for details. Wilda uBrch RN LAYING FITTER Emmie Lake - 05/30/2007 4:42 PM CST Pt calling for INR result. LAYING FITTER documented in this encounter Plan of Treatment Not on filedocumented as of this encounter Visit Diagnoses Not on filedocumented in this encounter Care Teams Public Health Representative Relationship Specialty Start Date End Date Jose Colin DO PCP - General 12/24/03 09/17/08 [address] [place] [address] documented as of this encounter
--- OUTSIDE RECORDS SUMMARY | 2022-02-06 10:28 | XMS_ITS | Encounter Summary ---
:1965 Author Organization [facility] Address [address], [place] [address] Care Team Providers Name Role Phone Jose Colin DO Primary Care Provider [phone] Encounter Details Date Type Department Care Team Description 08/26/2007 [facility] Internal Med Wilda Burton RN 205 [place] [address] [address] [phone] [place], [place] [address] Social History Tobacco Use Types [...] on filedocumented in this encounter Care Teams Warehouse Insulation Worker Relationship Specialty Start Date End Date Jose Colin, PCP - General 12/24/03 09/17/[address] [address] documented as of this encounter
--- OUTSIDE RECORDS SUMMARY | 2022-02-06 10:28 | XMS_ITS | Encounter Summary ---
:1965 Author Organization [facility] Address [address] [place] [address] Care Team Providers Name Role Phone Jose Colin DO Primary Care Provider [phone] Encounter Details Date Type Department Care Team Description 09/23/2007 Orders Only [facility] DVT (Deep Venous [address] Thrombosis) [place], [place] [id number] Social History Tobacco Use Types Packs/Day Years [...] - [place] 1.2 [facility] Specimen Anatomical Collection Method Collection Time Receive d Time (Source) Location / / Volume Laterality 09/23/2007 7:32 AM 8 7:35 CDT AM CDT Jose Colin DO LAB_1 Performing Organization Address City/State/ZIP Code Phon e Number [facility] [place] [facility] [phone] [facility] [place] [address] [address] documented in this encounter Visit Diagnoses Diagnosis DVT (deep venous thrombosis) ([facility]) Acute venous embolism and thrombosis of unspecified deep vessels of lower extremity documented in this encounter Care Teams Javascript Engineer Relationship Specialty Start Date End Date Jose Colin DO PCP - General 12/24/03 09/17/08 [address] [place] [address] documented as of this encounter
--- OUTSIDE RECORDS SUMMARY | 2022-02-06 10:28 | XMS_ITS | Encounter Summary ---
:1965 Author Organization [facility] Address [address] [place] [address] Care Team Providers Name Role Phone Jose Colin DO Primary Care Provider [phone] Reason for Visit Reason Onset Date Comments RESULTS, TEST 08/30/2007 Encounter Details Date Type Department Care Team Description 08/30/2007 Telephone [facility] Jose Witt, RESULTS, TEST 205 [place] [address] 421 [facility] [phone] [place] [address] (Wo rk) Social History Tobacco [...] on filedocumented in this encounter Care Teams Order Dispatcher Chief Relationship Specialty Start Date End Date Jose Colin DO PCP - General 12/24/03 09/17/08 [address] [place] [address] documented as of this encounter
--- OUTSIDE RECORDS SUMMARY | 2022-02-06 10:28 | XMS_ITS | Encounter Summary ---
:1965 Author Organization [facility] Address [address] [place] [address] Care Team Providers Name Role Phone Jose Colin DO Primary Care Provider [phone] Encounter Details Date Type Department Care Team Description 07/01/2007 Orders Only [facility] DVT (Deep Venous [address] Thrombosis) [place], [place] [id number] Social History Tobacco Use Types Packs/Day Years [...] DVT (Deep Venous Resul ts for this HAY CHOPPER Thrombosis) procedure are i n the results section . documented in this encounter Results (ABNORMAL) INR/PROTIME (07/01/2007 7:45 AM HAY CHOPPER) P athologist Signature Protime 31.3 (H) 12.0 - [facility] 14.5 sec Coumadin Yes [facility] INR 2.9 [facility] Specimen Anatomical Collection Method Collection Time Receive d Time (Source) Location / / Volume Laterality 07/01/2007 7:45 AM 8 7:46 HAY CHOPPER AM HAY CHOPPER Jose Colin DO LAB_1 Performing Organization Address City/State/ZIP Code Phon e Number [facility] [place] [facility] [phone] [facility] [address] [address] documented in this encounter Visit Diagnoses Diagnosis DVT (deep venous thrombosis) ([facility]) Acute venous embolism and thrombosis of unspecified deep vessels of lower extremity documented in this encounter Care Teams Wrapper Layer Relationship Specialty Start Date End Date Jose Colin DO PCP - General 12/24/03 09/17/08 [address] [place] [address] documented as of this encounter
--- OUTSIDE RECORDS SUMMARY | 2022-02-06 10:28 | XMS_ITS | Encounter Summary ---
:1965 Author Organization [facility] Address [address], [place] [address] Care Team Providers Name Role Phone Jose Colin DO Primary Care Provider [phone] Encounter Details Date Type Department Care Team Description 05/29/2007 [facility] Internal Med Wilda Burton RN 205 [place] [address] [address] [phone] [place], [place] [address] Social History Tobacco Use Types Packs/Day Years Used Date Smoking Tobacco: Never Alcohol Use Standard Drinks/Week Comments Yes 0 (1 standard drink = 0.6 oz pure alcoho l) rarely Sex Assigned at Date Recorded Not on file documented as of this encounter Progress Notes Wilda Anand - 05/29/2007 4:11 PM CST See Anticoagulation Flowsheet for details. Wilda Burch RN NDER WIND UP HELPER documented in this encounter Plan of Treatment Not on filedocumented as of this encounter Visit Diagnoses Not on filedocumented in this encounter Care Teams Telemarketing Supervisor Relationship Specialty Start Date End Date Jose Colin, PCP - General 12/24/03 09/17/08 [address] [facility] [address] documented as of this encounter
--- OUTSIDE RECORDS SUMMARY | 2022-02-06 10:28 | XMS_ITS | Encounter Summary ---
:1965 Author Organization [facility] Address [address] [place] [address] Care Team Providers Name Role Phone Jose Colin DO Primary Care Provider [phone] Encounter Details Date Type Department Care Team Description 05/30/2007 Orders Only [facility] DVT (Deep Venous [address] Thrombosis) [place], [place] [id number] Social History Tobacco Use Types Packs/Day Years [...] DVT (Deep Venous Resu lts for this VP RESEARCH Thrombosis) procedure are i n the results section . documented in this encounter Results (ABNORMAL) INR/PROTIME (05/30/2007 10:59 AM VP RESEARCH) P athologist Signature Protime 34.8 (H) 12.0 - [facility] 14.5 sec Coumadin Yes [facility] INR 3.4 [facility] Specimen Anatomical Collection Method Collection Time Receive d Time (Source) Location / / Volume Laterality 05/30/2007 10:59 05/30/2007 AM VP RESEARCH 11:00 AM VP RESEARCH Jose Colin DO LAB_1 Performing Organization Address City/State/ZIP Code Phon e Number [facility] [place] [phone] [facility] [address] [address] documented in this encounter Visit Diagnoses Diagnosis DVT (deep venous thrombosis) ([facility]) Acute venous embolism and thrombosis of unspecified deep vessels of lower extremity documented in this encounter Care Teams Change Director Relationship Specialty Start Date End Date Jose Colin DO PCP - General 12/24/03 09/17/08 [address] [place] [address] documented as of this encounter
--- OUTSIDE RECORDS SUMMARY | 2022-02-06 10:28 | XMS_ITS | Encounter Summary ---
:1965 Author Organization [facility] [address] [place] [address] Care Team Providers Name Role Phone Jose Colin DO Primary Care Provider Reason for Referral Specialty Diagnoses / Procedures Referred By Contact Refer red To Contact Jose Colin DO [address] [place], [place] [address] Referral ID Status Reason Start Date Expiration Date Visits Requ ested Visits Authorized Scheduling Instructions If an appointment with [facility] include [facility] beds at the [facility] stroenterology was advised and you have not been contacted to schedule that appointm ent within 3 business days, please call [phone] for assistance. Specialty Diagnoses / Procedures Referred By Contact Refer olga To Contact Jose Colin DO [address] [place], [place] [address] Referral ID Status Reason Start Date Expiration Date Visits Requ ested Visits Authorized Reason for Visit Reason Comments HEADACHE,MIGRAINE f/u visit DIFFICULTY SWALLOWING and digestive problems CHEST SYMPTOMS a weight and cold feeling CONSULT about the clot and tx Encounter Details Date Type Department Care Team Description 08/23/2007 Office Visit [facility] Internal [place] DVT (Deep V enous Thrombosis) (Primary Dx); Medicine Jose Allan DO Migraine; 205 [facility] [address] [place] Diarrhea; [place] [address] [facility] [phone] [address] Social History Tobacco Use Types Packs/Day [...] Diagnosis DVT (deep venous thrombosis) ([facility]) - [facility] Acute venous embolism and thrombosis of unspecified deep vessels of lower extremity Migraine Migraine, unspecified, without mention o f intractable migraine without mention of status migrainosus Diarrhea Dysphagia Dysphagia, unspecified documented in this encounter Care Teams Advertising Executive Relationship Specialty Start Date End Date Jose Colin DO PCP - General 12/24/03 09/17/08 [address] [place] [address] documented as of this encounter
--- OUTSIDE RECORDS SUMMARY | 2022-02-06 10:29 | XMS_ITS | Encounter Summary ---
:1965 Author [facility] Address [address] [place] [address] Care Team Providers Name Role Phone Jose Colin DO Primary Care Provider [phone] Encounter Details Date Type Department Care Team Description 05/06/2007 Orders Only [place] [facility] DVT (Deep Venous [address] Thrombosis) [place], [place] [id number] Social History Tobacco Use Types Packs/Day Years [...] DVT (Deep Venous Resul ts for this DESCRIPTIVE CATALOG LIBRARIAN Thrombosis) procedure are i n the results section . documented in this encounter Results (ABNORMAL) INR/PROTIME (05/06/2007 8:01 AM DESCRIPTIVE CATALOG LIBRARIAN) P athologist Signature Protime 24.2 (H) 12.0 - [facility] 14.5 sec Coumadin Yes [facility] Specimen Anatomical Collection Method Collection Time Receive d Time (Source) Location / / Volume Laterality 05/06/2007 8:01 AM 7 8:02 DESCRIPTIVE CATALOG LIBRARIAN AM DESCRIPTIVE CATALOG LIBRARIAN Jose Colin DO LAB_1 Performing Organization Address City/State/ZIP Code Phon e Number [facility] [place] [facility] [place] [facility] [phone] [facility] [address] [address] documented in this encounter Visit Diagnoses Diagnosis DVT (deep venous thrombosis) ([facility]) Acute venous embolism and thrombosis of unspecified deep vessels of lower extremity documented in this encounter Care Teams Urology Physician Relationship Specialty Start Date End Date Jose Colin DO PCP - General 12/24/03 09/17/08 [address] [place] [address] documented as of this encounter
--- OUTSIDE RECORDS SUMMARY | 2022-02-06 10:29 | XMS_ITS | Encounter Summary ---
:1965 Author Organization [facility] Address [address] [place] [address] Care Team Providers Name Role Phone Jose Colin DO Primary Care Provider [phone] Encounter Details Date Type Department Care Team Description 05/07/2007 Orders Only [facility] DVT (Deep Venous [address] [place] [address] Thrombosis) [place], [place] [id number] Social History Tobacco Use Types Packs/Day Years [...] DVT (Deep Venous Resul ts for this SUPPLEMENTAL MANAGER Thrombosis) procedure are i n the results section . documented in this encounter Results (ABNORMAL) INR/PROTIME (05/07/2007 8:11 AM SUPPLEMENTAL MANAGER) P athologist Signature Protime 23.8 (H) 12.0 - [facility] 14.5 sec Coumadin Yes [facility]1 [facility] Specimen Anatomical Collection Method Collection Time Receive d Time (Source) Location / / Volume Laterality 05/07/2007 8:11 AM 7 8:12 SUPPLEMENTAL MANAGER AM SUPPLEMENTAL MANAGER Jose Colin DO LAB_1 Performing Organization Address City/State/ZIP Code Phon e Number [facility] [phone] [facility] [address] [address] documented in this encounter Visit Diagnoses Diagnosis DVT (deep venous thrombosis) ([facility]) Acute venous embolism and thrombosis of unspecified deep vessels of lower extremity documented in this encounter Care Teams Associate Dean Relationship Specialty Start Date End Date Jose Colin DO PCP - General 12/24/03 09/17/08 [address] [place] [address] documented as of this encounter
--- OUTSIDE RECORDS SUMMARY | 2022-02-06 10:29 | XMS_ITS | Encounter Summary ---
:1965 Author Organization [facility] Address [address], [place] [address] Care Team Providers Name Role Phone Jose Colin DO Primary Care Provider [phone] Encounter Details Date Type Department Care Team Description 05/07/2007 [facility] Internal Med Wilda Burton RN 205 [place] [address] [address] [phone] [place], [place] [address] Social History Tobacco Use Types Packs/Day Years Used Date Smoking Tobacco: Never Alcohol Use Standard Drinks/Week Comments Yes 0 (1 standard drink = 0.6 oz pure alcoho l) rarely Sex Assigned at Date Recorded Not on file documented as of this encounter Progress Notes Wilda Anand - 05/07/2007 2:28 PM CST See Anticoagulation Flowsheet for details. Wilda Burch RN STANT MANAGER BILINGUAL documented in this encounter Plan of Treatment Not on filedocumented as of this encounter Visit Diagnoses Not on filedocumented in this encounter Care Teams Rug Cutter Helper Relationship Specialty Start Date End Date Jose Colin, PCP - General 12/24/03 09/17/08 [address] [facility] [address] documented as of this encounter
--- OUTSIDE RECORDS SUMMARY | 2022-02-06 10:29 | XMS_ITS | Encounter Summary ---
:1965 Author Organization [facility] Address [address], [place] [address] Care Team Providers Name Role Phone Jose Colin DO Primary Care Provider [phone] Encounter Details Date Type Department Care Team Description 05/17/2007 [facility] Internal Med Wilda Burton RN 205 [place] [address] [address] [phone] [place], [place] [address] Social History Tobacco Use Types Packs/Day Years Used Date Smoking Tobacco: Never Alcohol Use Standard Drinks/Week Comments Yes 0 (1 standard drink = 0.6 oz pure alcoho l) rarely Sex Assigned at Date Recorded Not on file documented as of this encounter Progress Notes Wilda Anand - 05/17/2007 3:06 PM CST See Anticoagulation Flowsheet for details. Wilda Burch RN CUTTER DIAMOND documented in this encounter Plan of Treatment Not on filedocumented as of this encounter Visit Diagnoses Not on filedocumented in this encounter Care Teams Machine Operators Relationship Specialty Start Date End Date Jose Colin, PCP - General 12/24/03 09/17/08 [address] [facility] [address] documented as of this encounter
--- OUTSIDE RECORDS SUMMARY | 2022-02-06 10:29 | XMS_ITS | Encounter Summary ---
:1965 [facility] Address [address] [place] [address] Care Team Providers Name Role Phone Jose Colin DO Primary Care Provider [phone] Encounter Details Date Type Department Care Team Description 05/17/2007 Orders Only [facility] DVT (Deep Venous [address] Thrombosis) [place], [place] [id number] Social History Tobacco Use Types Packs/Day Years [...] DVT (Deep Venous Resul ts for this PRODUCTS MECHANICAL DESIGN ENGINEER Thrombosis) procedure are i n the results section . documented in this encounter Results (ABNORMAL) INR/PROTIME (05/17/2007 9:00 AM PRODUCTS MECHANICAL DESIGN ENGINEER) P athologist Signature Protime 39.4 (H) 12.0 - [facility] 14.[address] [facility]9 [facility] Specimen Anatomical Collection Method Collection Time Receive d Time (Source) Location / / Volume Laterality 05/17/2007 9:00 AM 7 9:01 PRODUCTS MECHANICAL DESIGN ENGINEER AM PRODUCTS MECHANICAL DESIGN ENGINEER Jose Colin DO LAB_1 Performing Organization Address City/State/ZIP Code Phon e Number [facility] [phone] [facility] [address] [address] documented in this encounter Visit Diagnoses Diagnosis DVT (deep venous thrombosis) ([facility]) Acute venous embolism and thrombosis of unspecified deep vessels of lower extremity documented in this encounter Care Teams Process Designer Relationship Specialty Start Date End Date Jose Colin DO PCP - General 12/24/03 09/17/08 [address] [place] [address] documented as of this encounter
--- OUTSIDE RECORDS SUMMARY | 2022-02-06 10:29 | XMS_ITS | Encounter Summary ---
:1965 Author Organization [facility] Address [address], [place] [address] Care Team Providers Name Role Phone Jose Colin DO Primary Care Provider [phone] Encounter Details Date Type Department Care Team Description 05/20/2007 [facility] Internal Med Wilda Burton RN [address] [place] [address] [address] [phone] [place], [place] [address] Social History Tobacco Use Types Packs/Day Years Used Date Smoking Tobacco: Never Alcohol Use Standard Drinks/Week Comments Yes 0 (1 standard drink = 0.6 oz pure alcoho l) rarely Sex Assigned at Date Recorded Not on file documented as of this encounter Progress Notes Wilda Anand - 05/20/2007 3:09 PM CST See Anticoagulation Flowsheet for details. Wilda Burch RN N'S HEALTH CARE NURSE PRACTITIONER documented in this encounter Plan of Treatment Not on filedocumented as of this encounter Visit Diagnoses Not on filedocumented in this encounter Care Teams Firmware Manager Relationship Specialty Start Date End Date Jose Colin, PCP - General 12/24/03 09/17/08 [facility] [address] documented as of this encounter
--- OUTSIDE RECORDS SUMMARY | 2022-02-06 10:29 | XMS_ITS | Encounter Summary ---
:1965 Author Organization [facility] Address [address] [address] Care Team Providers Name Role Phone Jose Colin DO Primary Care Provider [phone] Encounter Details Date Type Department Care Team Description 05/06/2007 [facility] Internal Med Wilda Burton RN [address] [place] [address] [address] [phone] [place], [place] [address] Social History Tobacco Use Types Packs/Day Years Used Date Smoking Tobacco: Never Alcohol Use Standard Drinks/Week Comments Yes 0 (1 standard drink = 0.6 oz pure alcoho l) rarely Sex Assigned at Date Recorded Not on file documented as of this encounter Progress Notes Wilda Anand - 05/06/2007 3:53 PM CST See Anticoagulation Flowsheet for details. Wilda Burch RN GE RN documented in this encounter Plan of Treatment Not on filedocumented as of this encounter Visit Diagnoses Not on filedocumented in this encounter Care Teams Hot Kettle Tender Relationship Specialty Start Date End Date Jose Colin, PCP - General 12/24/03 09/17/08 [facility] [address] documented as of this encounter
--- OUTSIDE RECORDS SUMMARY | 2022-02-06 10:29 | XMS_ITS | Encounter Summary ---
:1965 Author [facility] Address [address] [address] Care Team Providers Name Role Phone Jose Colin Primary Care Provider [phone] Reason for Visit Reason Comments Careplan: Anticoagulation DVT Encounter Details Date Type Department Care Team Description 05/01/2007 [facility] Internal Thea Bella R N Careplan: Anticoagulation Medicine [facility] (DVT) [address] [place] [address] [address] [phone] [place], [place] [id number] Social History Tobacco Use Types Packs/Day Years Used Date Smoking Tobacco: Never Alcohol Use Standard Drinks/Week Comments Yes 0 (1 standard drink = 0.6 oz pure alcoho l) rarely Sex Assigned at Date Recorded Not on file documented as of this encounter Progress Notes Brigido Anand - 05/03/2007 8:23 AM HATCHERY WORKER Addended by: BRIGIDO ROGERS on: 05/03/2007 8:23:29 AM Modules accepted: Orders HERY WORKER Thea Bella - 05/01/2007 2:54 PM CST Anticoagulation initiation order for Megan Choi. Diagnoses: DVT. Therapeutic range: 2 - 3. Warfarin pill strength: 5 mg. Initiation date ( AKA date when started on warfarin ): 04/30/07. On enoxaparin: YES Length of treatment: 6 monthes or until directed by PCP. Comments: none Thea Bella RN 05/01/2007 2:53 PM HERY WORKER documented in this encounter Plan of Treatment Not on filedocumented as of this encounter Visit Diagnoses Diagnosis DVT (deep venous thrombosis) ([facility]) - Argelia bravo Acute venous embolism and thrombosis of unspecified deep vessels of lower extremity documented in this encounter Care Teams First Breaker Feeder Relationship Specialty Start Date End Date Jose Colin DO PCP - General 12/24/03 09/17/08 [address] [place] [address] documented as of this encounter
--- OUTSIDE RECORDS SUMMARY | 2022-02-06 10:29 | XMS_ITS | Encounter Summary ---
:1965 Author Organization [facility] Address [address], [place] [address] Care Team Providers Name Role Phone Jose Colin DO Primary Care Provider Encounter Details Date Type Department Care Team Description 05/10/2007 [facility] Internal Med Wilda Burton RN [address] [place] [address] [address] [phone] [place], [place] [address] Social History Tobacco Use Types Packs/Day Years Used Date Smoking Tobacco: Never Alcohol Use Standard Drinks/Week Comments Yes 0 (1 standard drink = 0.6 oz pure alcoho l) rarely Sex Assigned at Date Recorded Not on file documented as of this encounter Progress Notes Wilda Anand - 05/10/2007 3:37 PM CST See Anticoagulation Flowsheet for details. Wilda Burch RN AR PADDER BLINDSTITCH documented in this encounter Plan of Treatment Not on filedocumented as of this encounter Visit Diagnoses Not on filedocumented in this encounter Care Teams Rubber Goods Inspector Tester Relationship Specialty Start Date End Date Jose Colin, PCP - General 12/24/03 09/17/08 [address] [facility] [address] documented as of this encounter
--- OUTSIDE RECORDS SUMMARY | 2022-02-06 10:29 | XMS_ITS | Encounter Summary ---
:1965 Author Organization [facility] Address [address] [place] [address] Care Team Providers Name Role Phone Jose Colin DO Primary Care Provider [phone] Reason for Visit Reason Comments ERRONEOUS ENTRY Encounter Details Date Type Department Care Team Description 05/03/2007 [facility] Internal Med Wilda Burton RN ERRONEOUS ENTRY [address] [place] [address] [address] [phone] [place], [place] [address] Social History Tobacco Use Types [...] filedocumented in this encounter Care Teams Corporate General Manager Relationship Specialty Start Date End Date Jose Colin DO PCP - General 12/24/03 09/17/[address] [place] [address] documented as of this encounter
--- OUTSIDE RECORDS SUMMARY | 2022-02-06 10:29 | XMS_ITS | Encounter Summary ---
:1965 Author [facility] Address [address] [place] [address] Care Team Providers Name Role Phone Jose Colin DO Primary Care Provider [phone] Encounter Details Date Type Department Care Team Description 05/20/2007 Orders Only [facility] DVT (Deep Venous [address] Thrombosis) [place], [place] [id number] Social History Tobacco Use Types Packs/Day Years [...] DVT (Deep Venous Resul ts for this SUBSTATION DESIGN DRAFTSPERSON Thrombosis) procedure are i n the results section . documented in this encounter Results (ABNORMAL) INR/PROTIME (05/20/2007 8:00 AM SUBSTATION DESIGN DRAFTSPERSON) P athologist Signature Protime 22.9 (H) 12.0 - [facility] 14.5 sec Coumadin Yes [facility]0 [facility] Specimen Anatomical Collection Method Collection Time Receive d Time (Source) Location / / Volume Laterality 05/20/2007 8:00 AM 7 8:01 SUBSTATION DESIGN DRAFTSPERSON AM SUBSTATION DESIGN DRAFTSPERSON Jose Colin DO LAB_1 Performing Organization Address City/State/ZIP Code Phon e Number [facility] [phone] [facility] [address] [address] documented in this encounter Visit Diagnoses Diagnosis DVT (deep venous thrombosis) ([facility]) Acute venous embolism and thrombosis of unspecified deep vessels of lower extremity documented in this encounter Care Teams Rougher Merchant Mill Relationship Specialty Start Date End Date Jose Colin DO PCP - General 12/24/03 09/17/08 [address] [place] [address] documented as of this encounter
--- OUTSIDE RECORDS SUMMARY | 2022-02-06 10:29 | XMS_ITS | Encounter Summary ---
:1965 Author Organization [facility] Address [address], [place] [address] Care Team Providers Name Role Phone DixieJose Jerrell DO Primary Care Provider [phone] Reason for Referral Specialty Diagnoses / Procedures Referred By Contact Refer red To Contact Shyla Perdomo, AP RN, YARD JOCKEY [address] [place] [address] Referral ID Status Reason Start Date Expiration Date Visits Requ ested Visits Authorized TRICAL SERVICE TECHNICIAN Reason for Visit Reason Comments LEG PAIN Left Calf Encounter Details Date Type Department Care Team Description 04/30/2007 Office Visit [facility] Internal Shyla Perdomo, Calf P ain (Primary Dx) Medicine MICROBIOLOGY MANAGER, YARD JOCKEY [address] [facility] [address] [place] [address] [place], [place] [phone] Social History Tobacco Use Types Packs/Day Years Used Date Smoking Tobacco: Never Alcohol Use Standard Drinks/Week Comments Yes 0 (1 standard drink = 0.6 oz pure alcoho l) rarely Sex Assigned at Date Recorded Not on file documented as of this encounter Last Filed Vital Signs Vital Sign Reading Time Taken Comments Blood Pressure 118/60 04/30/2007 3:43 PM ELECTRICAL SERVICE TECHNICIAN Pulse 76 04/30/2007 3:43 PM ELECTRICAL SERVICE TECHNICIAN Temperature 36.2 ??C (97.2 ??F) 04/30/2007 3:43 PM ELECTRICAL SERVICE TECHNICIAN Respiratory Rate 24 04/30/2007 3:43 PM ELECTRICAL SERVICE TECHNICIAN Oxygen Saturation - - Inhaled Oxygen [...] 04/30/2007 This chart has been electronically signed. TRICAL SERVICE TECHNICIAN documented in this encounter Plan of Treatment Not on filedocumented as of this encounter Visit Diagnoses Diagnosis Calf pain - Primary Pain in limb documented in this encounter Care Teams Online Health And Fitness Coach Relationship Specialty Start Date End Date Jose Colin DO PCP - General 12/24/03 09/17/08 [address] [place] [address] documented as of this encounter
--- OUTSIDE RECORDS SUMMARY | 2022-02-06 10:29 | XMS_ITS | Encounter Summary ---
:1965 Author [facility] Address [address], [place] [address] Care Team Providers Name Role Phone Jose Colin DO Primary Care Provider [phone] Encounter Details Date Type Department Care Team Description 05/03/2007 Antico[facility] Internal Wilda Burch, DVT ( Deep Venous Thrombosis) (Primary Dx); Medicine RN GERD (Gastroesophageal Reflux Disease) [address] [place] [address] [facility] [phone] [address] [place], [place] [phone] Social History Tobacco Use Types Packs/Day Years Used Date Smoking Tobacco: Never Alcohol Use Standard Drinks/Week Comments Yes 0 (1 standard drink = 0.6 oz pure alcoho l) rarely Sex Assigned at Date Recorded Not on file documented as of this encounter Progress Notes Jose Colin - 06/20/2007 9:01 AM CST Agree with carenikki. Jose Colin DO MAKER Wilda Anand - 05/03/2007 2:40 PM CST See Anticoagulation Flowsheet for details. Wilda Burch RN MAKER documented in this encounter Plan of Treatment Not on filedocumented as of this encounter Visit Diagnoses Diagnosis DVT (deep venous thrombosis) ([facility]) - [facility] Acute venous embolism and thrombosis of unspecified deep vessels of lower extremity GERD (gastroesophageal reflux disease) Esophageal reflux documented in this encounter Care Teams Regrader Relationship Specialty Start Date End Date Jose Colin DO PCP - General 12/24/03 09/17/08 [address] [place] [address] documented as of this encounter
--- OUTSIDE RECORDS SUMMARY | 2022-02-06 10:29 | XMS_ITS | Encounter Summary ---
:1965 Author Organization [facility] Address [address], [place] [address] Care Team Providers Name Role Phone Jose Colin DO Primary Care Provider [phone] Encounter Details Date Type Department Care Team Description 05/23/2007 [facility] Internal Med Wilda Burton RN [address] [place] [address] [address] [phone] [place], [place] [address] Social History Tobacco Use Types Packs/Day Years Used Date Smoking Tobacco: Never Alcohol Use Standard Drinks/Week Comments Yes 0 (1 standard drink = 0.6 oz pure alcoho l) rarely Sex Assigned at Date Recorded Not on file documented as of this encounter Progress Notes Wilda Anand - 05/23/2007 3:08 PM CST See Anticoagulation Flowsheet for details. Wilda Burch RN SYSTEMS ANALYST documented in this encounter Plan of Treatment Not on filedocumented as of this encounter Visit Diagnoses Not on filedocumented in this encounter Care Teams Incident Commander Relationship Specialty Start Date End Date Jose Colin, PCP - General 12/24/03 09/17/08 [address] [facility] [address] documented as of this encounter
--- OUTSIDE RECORDS SUMMARY | 2022-02-06 10:29 | XMS_ITS | Encounter Summary ---
:1965 Author Organization [facility] Address [address], [place] [address] Care Team Providers Name Role Phone Dungjosé antonioelbaJose medina DO Primary Care Provider [phone] Encounter Details Date Type Department Care Team Description 04/30/2007 Orders Only [facility] Radiology [address] [place] [address] Social History Tobacco Use Types Packs/Day Years [...] ts for this LOW EXT - LT JAVA DEVELOPMENT MANAGER procedure are i n the results section. documented in this encounter Results US VASC OMID DOPP LOW EXT - LT (04/30/2007 5:58 PM JAVA DEVELOPMENT MANAGER) Anatomical Region Laterality Modality Other Specimen (Source) Anatomical Collection Method Collection Time Re ceived Time Location / / Volume Laterality 04/30/2007 5:58 PM JAVA DEVELOPMENT MANAGER Impressions 05/03/2007 8:40 AM JAVA DEVELOPMENT MANAGER IMPRESSION: Short segment occlusive thrombus within the left peroneal vein at the level of the mid calf. Results were discussed with Shyla mckeon, nurse practioner on 04/30/07 at 6:20 PM. ??Patient sent to [facility] for further evaluation and treatment. Narrative 05/03/2007 8:40 AM JAVA DEVELOPMENT MANAGER EVAL FOR DVT, LT CALF PAIN, # [id number], PAGE SHYLA (MAURICIO) @ PAGER# [email or web address] [...] in this encounter Care Teams Entry Level Account Representative Relationship Specialty Start Date End Date Jose Colin, PCP - General 12/24/03 09/17/08 [address] [place] [address] documented as of this encounter
--- OUTSIDE RECORDS SUMMARY | 2022-02-06 10:29 | XMS_ITS | Encounter Summary ---
:[address] [facility] Address [address] [place] [address] Care Team Providers Name Role Phone Jose Colin DO Primary Care Provider [phone] Encounter Details Date Type Department Care Team Description 05/10/2007 Orders Only [facility] DVT (Deep Venous [address] Thrombosis) [place], [place] [id number] Social History Tobacco Use Types Packs/Day Years [...] DVT (Deep Venous Resul ts for this COMPUTER HARDWARE DESIGNER Thrombosis) procedure are i n the results section . documented in this encounter Results (ABNORMAL) INR/PROTIME (05/10/2007 8:05 AM COMPUTER HARDWARE DESIGNER) P athologist Signature Protime 24.7 (H) 12.0 - [facility] 14.5 sec Coumadin Yes [facility] INR 2.2 [facility] Specimen Anatomical Collection Method Collection Time Receive d Time (Source) Location / / Volume Laterality 05/10/2007 8:05 AM 7 8:07 COMPUTER HARDWARE DESIGNER AM COMPUTER HARDWARE DESIGNER Jose Colin DO LAB_1 Performing Organization Address City/State/ZIP Code Phon e Number [facility] [phone] [facility] [address] [address] documented in this encounter Visit Diagnoses Diagnosis DVT (deep venous thrombosis) ([facility]) Acute venous embolism and thrombosis of unspecified deep vessels of lower extremity documented in this encounter Care Teams Electric Freight Car Operator Relationship Specialty Start Date End Date Jose Colin DO PCP - General 12/24/03 09/17/08 [address] [place] [address] documented as of this encounter
--- OUTSIDE RECORDS SUMMARY | 2022-02-06 10:29 | XMS_ITS | Encounter Summary ---
:1965 Author Organization [facility] Address [address] [place] [address] Care Team Providers Name Role Phone MoJose medina Jerrell BOOGIE Primary Care Provider [phone] Reason for Visit Reason Onset Date Comments DVT(DEEP VEIN THROMBOSIS) 04/30/2007 Encounter Details Date Type Department Care Team Description 04/30/2007 Telephone [facility]line Celena Wells, DVT(DEEP VEIN [address] RN THROMBOSIS) [place], [place] [address] [phone] [place] [address] Social History Tobacco Use Types Packs/Day Years Used Date Smoking Tobacco: Never Alcohol Use Standard Drinks/Week Comments Yes 0 (1 standard drink = 0.6 oz pure alcoho l) rarely Sex Assigned at Date Recorded Not on file documented as of this encounter Nursing Notes Celena Wells - 04/30/2007 7:00 PM CST Shyla Perdomo POWER PLANT ENGINEER called [facility] to let [facility] know pt has a DVT as [facility]. She cannot remember pt's name and gave [facility] nurse number to call at ultrasound to get pt name as pt is still there waiting for further direction. Pt needs lovenox started but Aleyda Perdomo gopingout of phone service shortly. She wondered if pt can be seen at [facility] to get shots started. Called Lead Rn Celena Alejandro at [facility] and she stated pt can be seen at any [facility] and if Rn there, pt can get shot from Rn if [facility] Dr orders it and then will need to f/u in regular clinic in am to get pt teaching on thelovenox shots and then further f/u. PT can be seen at [facility] but will need to see Dr as [...] paz. Stated pt could be seen at [facility] or [facility] or [facility] and be seen by Dr to get [...] she would like to be seen at [facility] as it is only 10 min from her. Called Rissa at [facility] to give number for them toreach radiologist for confirmation if needed and to let them know pt would be coming in for lovenox shot. She stated nurses are busy. Did not get to give radiology number to nurses. She hung up. Cb from [facility] and they stated to speak with Dr Choi and did not speak with Dr Choi as Dr did not come to the phone. They thought Dr career and technology education teacher for clinic should have been consulted about matter. They maysend her to Er was stated. Relayed information that pt was enroute but she did know how to give herself shots but she would need Dr orders to get medication started for DVT per protocol. ER SUPERVISOR documented in this encounter Plan of Treatment Not on filedocumented as of this encounter Visit Diagnoses Not on filedocumented in this encounter Care Teams Transformer Builder Relationship Specialty Start Date End Date Jose Colin DO PCP - General 12/24/03 09/17/[address] [place] [place] [address] documented as of this encounter
--- OUTSIDE RECORDS SUMMARY | 2022-02-06 10:29 | XMS_ITS | Encounter Summary ---
:1965 [facility] Address [address] [place] [address] Care Team Providers Name Role Phone Jose Colin DO Primary Care Provider [phone] Reason for Visit Reason Onset Date Comments LETTER NEEDED 05/28/2007 Encounter Details Date Type Department Care Team Description 05/28/2007 Telephone [facility] Jose Witt, LETTER NEEDED [address] [place] [address] [address] [facility] [phone] [place] [address] (Wo rk) Social History Tobacco Use Types Packs/Day Years Used Date Smoking Tobacco: Never Alcohol Use Standard Drinks/Week Comments Yes 0 (1 standard drink = 0.6 oz pure alcoho l) rarely Sex Assigned at Date Recorded Not on file documented as of this encounter Nursing Notes Hanna Shin - 05/28/2007 2:46 PM CST Pt will cigar packer and picker letter RY CHEF Jose Colin - 05/28/2007 2:02 PM CST Letter made Please contact pt to let he know it's done Jose Allan. DO Dixie 2:02 PM 05/28/2007 RY CHEF Emmie Lake - 05/28/2007 10:10 AM CST Pt needs letter for employer re her having INR tests. Pt needs detailed letter explaining she will have to have lab draws and may be late for work. The letter should explain how it is determined when she needs labs, since it really is not on a regular schedule. RY CHEF documented in this encounter Plan of Treatment Not on filedocumented as of this encounter Visit Diagnoses Not on filedocumented in this encounter Care Teams Load Haul Dump Operator Relationship Specialty Start Date End Date Jose Colin, PCP - General 12/24/03 09/17/08 [address] [place] [address] documented as of this encounter
--- OUTSIDE RECORDS SUMMARY | 2022-02-06 10:29 | XMS_ITS | Encounter Summary ---
:1965 Author Organization [facility] Address [address] [address] Care Team Providers Name Role Phone Jose Colin DO Primary Care Provider [phone] Encounter Details Date Type Department Care Team Description 05/03/2007 Orders Only [facility] DVT (Deep Venous [address] Thrombosis) [place], [place] [id number] Social History Tobacco Use Types Packs/Day Years Used Date Smoking Tobacco: Never Alcohol Use Standard Drinks/Week Comments Yes 0 (1 standard drink = 0.6 oz pure alcoho l) rarely Sex Assigned at Date Recorded Not on file documented as of this encounter Progress Notes Jose Colin - 05/27/2007 12:47 PM EQUIPMENT INSTALLATION PROFESSIONAL Quick Note: ok to send letter Jose Colin DO 12:47 PM 05/27/2007 PMENT INSTALLATION PROFESSIONAL documented in this encounter Plan of Treatment Not on filedocumented as of this encounter Procedures Procedure Name Priority Date/Time Associated Diagnosis Comme nts COMPLETE BLOOD Routine 05/03/2007 8:55 AM DVT (Deep Venous Res ults for this COUNT-W/DIFF EQUIPMENT INSTALLATION PROFESSIONAL Thrombosis) procedure are i n the results section. INR/PROTIME Same Day 05/03/2007 8:55 AM DVT (Deep Venous Resul ts for this EQUIPMENT INSTALLATION PROFESSIONAL Thrombosis) procedure are i n the results section. documented in this encounter Results (ABNORMAL) HEMOGRAM/PLTS/DIFF (05/03/2007 8:55 AM EQUIPMENT INSTALLATION PROFESSIONAL) [facility] Method Time Signature WBC 6.9 4.0 [...] 14.5 % Platelets 419 150 - 450 [facility] k/ul PMN/Band 40 (L) 43 - 72 % [facility] Lymph 49 (H) 17 - 43 % [facility] [place] 6 4 - 12 % [facility] Eos 3 0 - 8 % [facility] Baso 1 0 - 1 % [facility] Neutrophil 2.8 1.8 - 7.7 [facility] Absolute k/ul Lymph Absolute 3.4 1.0 - 4.8 [facility] k/ul [place] Absolute 0.4 0.1 - 0.7 [facility] k/ul Eos Absolute 0.2 0.0 - 0.5 [facility] k/ul Baso Absolute 0.1 0.0 - 0.2 [facility] k/ul Specimen Anatomical Collection Method Collection Time Receive d Time (Source) Location / / Volume Laterality 05/03/2007 8:55 AM 7 8:56 EQUIPMENT INSTALLATION PROFESSIONAL AM EQUIPMENT INSTALLATION PROFESSIONAL Jose Colin DO LAB_1 Performing Organization Address City/[facility]/ZIP Code Phon e Number [place] [phone] [facility] [address] [place] [address] (ABNORMAL) INR/PROTIME (05/03/2007 8:55 AM EQUIPMENT INSTALLATION PROFESSIONAL) P athologist Signature Protime 18.5 (H) 12.0 - [facility] 14.5 sec Coumadin Yes [facility] INR 1.5 [facility] Specimen Anatomical Collection Method Collection Time Receive d Time (Source) Location / / Volume Laterality 05/03/2007 8:55 AM 7 8:56 EQUIPMENT INSTALLATION PROFESSIONAL AM EQUIPMENT INSTALLATION PROFESSIONAL Jose Colin DO LAB_1 Performing Organization Address City/[facility]/ZIP Code Phon e Number [place] [phone] [place] [phone] [address] documented in this encounter Visit Diagnoses Diagnosis DVT (deep venous thrombosis) ([facility]) Acute venous embolism and thrombosis of unspecified deep vessels of lower extremity documented in this encounter Care Teams Resource Technician Relationship Specialty Start Date End Date Jose Colin DO PCP - General 12/24/03 09/17/[address] [place] [address] documented as of this encounter
--- OUTSIDE RECORDS SUMMARY | 2022-02-06 10:29 | XMS_ITS | Encounter Summary ---
:1965 Author Organization [facility] Address [address], [place] [address] Care Team Providers Name Role Phone Dungjosé antonioelbaJose medina Primary Care Provider [phone] Encounter Details Date Type Department Care Team Description 05/23/2007 Orders Only [facility] DVT (Deep Venous [address] Thrombosis) [place], [place] [id number] Social History Tobacco Use Types Packs/Day Years [...] (Deep Venous Res ults for this COUNT-W/DIFF ETIOLOGY TEACHER Thrombosis) procedure are i n the results section. INR/PROTIME Same Day 05/23/2007 8:09 AM DVT (Deep Venous Resul ts for this ETIOLOGY TEACHER Thrombosis) procedure are i n the results section. documented in this encounter Results HEMOGRAM/PLTS/DIFF (05/23/2007 8:09 AM ETIOLOGY TEACHER) Analysis Performed At Patho logist Time Signature WBC 7.3 4.0 - 11.0 [facility] k/ul RBC 4.26 4.0 - 5.2 [facility] M/ul Hemoglobin 13.3 12.0 - [facility] 16.0 g/dl HCT 38.7 36.0 - [facility] 46.0 % MCV 90.7 80 - 100 [facility] fl MCH 31.2 26 - 34 pg [facility] MCHC 34.4 32 - 36 % [facility] RDW 12.5 11.5 - [facility] 14.5 % Platelets 307 150 - 450 [facility] k/ul PMN/Band 58 43 - 72 % [facility] Lymph 34 17 - 43 % [facility] [place] 5 4 - 12 % [facility] Eos 3 0 - 8 % [facility] Baso 1 0 - 1 % [facility] Neutrophil 4.2 1.8 - 7.7 [facility] Absolute k/ul Lymph Absolute 2.4 1.0 - 4.8 [facility] k/ul [place] Absolute 0.4 0.1 - 0.7 [facility] k/ul Eos Absolute 0.2 0.0 - 0.5 [facility] k/ul Baso Absolute 0.0 0.0 - 0.2 [facility] k/ul Specimen Anatomical Collection Method Collection Time Receive d Time (Source) Location / / Volume Laterality 05/23/2007 8:09 AM 7 8:11 ETIOLOGY TEACHER AM ETIOLOGY TEACHER Jose Colin DO LAB_1 Performing Organization Address City/[facility] Code Phon e Number [facility] [phone] [address] (ABNORMAL) INR/PROTIME (05/23/2007 8:09 AM ETIOLOGY TEACHER) P athologist Signature Protime 24.1 (H) 12.0 - [facility] 14.5 sec Coumadin Yes [facility] INR 2.1 [facility] Specimen Anatomical Collection Method Collection Time Receive d Time (Source) Location / / Volume Laterality 05/23/2007 8:09 AM 7 8:11 ETIOLOGY TEACHER AM ETIOLOGY TEACHER Jose Colin DO LAB_1 Performing Organization Address City/[facility] Phon e Number [facility] [phone] [address] documented in this encounter Visit Diagnoses Diagnosis DVT (deep venous thrombosis) ([facility]) Acute venous embolism and thrombosis of unspecified deep vessels of lower extremity documented in this encounter Care Teams [place]ak Worker Relationship Specialty Start Date End Date Jose Colin DO PCP - General 12/24/03 09/17/08 [address] [place] [place] [address] documented as of this encounter
--- OUTSIDE RECORDS SUMMARY | 2022-02-06 10:29 | XMS_ITS | Encounter Summary ---
:1965 Author Organization [facility] Address [address] [address] Care Team Providers Name Role Phone Jose Colin DO Primary Care Provider [phone] Encounter Details Date Type Department Care Team Description 05/01/2007 Anticoagulation [facility] Internal Thea Bella, DVT (De ep Venous Medicine RN Thrombosis) (Primary [address] [facility] Dx) [place] [address] CLINIC [phone] [address] [place] [address] Social History Tobacco Use Types Packs/Day Years Used Date Smoking Tobacco: Never Alcohol Use Standard Drinks/Week Comments Yes 0 (1 standard drink = 0.6 oz pure alcoho l) rarely Sex Assigned at Date Recorded Not on file documented as of this encounter Plan of Treatment Not on filedocumented as of this encounter Visit Diagnoses Diagnosis DVT (deep venous thrombosis) ([facility]) - Argelia shelly Acute venous embolism and thrombosis of unspecified deep vessels of lower extremity documented in this encounter Care Teams Regulatory Intern Relationship Specialty Start Date End Date Jose Colin DO PCP - General 12/24/03 09/17/08 [address] [place] [address] documented as of this encounter
--- OUTSIDE RECORDS SUMMARY | 2022-02-06 10:29 | XMS_ITS | Encounter Summary ---
:1965 Author Organization [facility] Address [address] [place] [address] Care Team Providers Name Role Phone Dixie Jose Jerrell DO Primary Care Provider [phone] Reason for Visit Reason Comments DVT(DEEP VEIN THROMBOSIS) left Encounter Details Date Type Department Care Team Description 04/30/2007 [facility] Visit [facility] DVT (Deep Venous [address] Thrombosis) (Primary Dx) [place], [place] [id number] Social History Tobacco Use Types Packs/Day Years Used Date Smoking Tobacco: Never Alcohol Use Standard Drinks/Week Comments Yes 0 (1 standard drink = 0.6 oz pure alcoho l) rarely Sex Assigned at Date Recorded Not on file documented as of this encounter Last Filed Vital Signs Vital Sign Reading Time Taken Comments Blood Pressure 120/76 04/30/2007 7:19 PM STEAM AND POWER SUPERVISOR Pulse 80 04/30/2007 7:19 PM STEAM AND POWER SUPERVISOR Temperature 36.7 ??C (98 ??F) 04/30/2007 7:19 PM STEAM AND POWER SUPERVISOR Respiratory Rate 16 04/30/2007 7:19 PM STEAM AND POWER SUPERVISOR Oxygen Saturation - - Inhaled Oxygen Concentration - - Weight - - Height - - Body Mass Index - - documented in this encounter Patient Instructions Patient [id number]/20/2007 7:46 PM STEAM AND POWER SUPERVISOR Lovenox (Heparin) 90mg every 12 hours until told to stop Warfarin 5mg a day 04/30, 05/01, 05/02 on 05/03 check with nurse for dose INR (lab test) 05/03 AM Goal for INR 2-3 M AND POWER SUPERVISOR documented in this encounter Progress Notes Chirag Braxton - 04/30/2007 7:35 PM CST This office note has been dictated. Chirag Braxton MD M AND POWER SUPERVISOR Chirag Braxton - 04/30/2007 12:00 AM STEAM AND POWER SUPERVISOR Chief complaint: I have a vein clot [...] of Lovenox in the clinic. P cc: M AND POWER SUPERVISOR documented in this encounter Nursing Notes 04/30/2007 [...] DVT (Deep Venous Resul ts for this STEAM AND POWER SUPERVISOR Thrombosis) procedure are i n the results section . documented in this encounter Results INR/PROTIME (04/30/2007 8:09 PM STEAM AND POWER SUPERVISOR) athologist Signature Protime 13.0 12.0 - 14.5 [employer] sec Coumadin No [facility] 0[facility] [employer] Specimen Anatomical Collection Method Collection Time Receive d Time (Source) Location / / Volume Laterality 04/30/2007 8:09 PM 7 8:10 STEAM AND POWER SUPERVISOR PM STEAM AND POWER SUPERVISOR Chirag Braxton MD LAB_1 Performing Organization Address City/State/ZIP Code Phon e Number [facility] [phone] [facility] [address] [address] documented in this encounter Visit Diagnoses Diagnosis DVT (deep venous thrombosis) ([facility]) - Argelia bravo Acute venous embolism and thrombosis of unspecified deep vessels of lower extremity documented in this encounter Care Teams Coordinator Hotels Relationship Specialty Start Date End Date Jose Colin DO PCP - General 12/24/03 09/17/08 [address] [place] [address] documented as of this encounter
--- OUTSIDE RECORDS SUMMARY | 2022-02-06 10:30 | XMS_ITS | Encounter Summary ---
:1965 Author Organization [facility] Address [address], [place] [address] Care Team Providers Name Role Phone Jose Colin DO Primary Care Provider [phone] Encounter Details Date Type Department Care Team Description 02/19/2006 Outside Hospital External to [facility] OPER ATIVE REPORT Social History Tobacco Use Types Packs/Day Years Used Date Smoking Tobacco: Never Alcohol Use Standard Drinks/Week Comments Yes 0 (1 standard drink = 0.6 oz pure alcoho l) rarely Sex Assigned at Date Recorded Not on file documented as of this encounter Progress Notes [facility], PROVIDER - 02/19/2006 12:00 AM CDT documented in this encounter Plan of Treatment Not on filedocumented as of this encounter Visit Diagnoses Not on filedocumented in this encounter Care Teams Retail Pos Specialist Relationship Specialty Start Date End Date Jose Colin DO PCP - General 12/24/03 09/17/08 [address] [place] [place] [address] documented as of this encounter
--- OUTSIDE RECORDS SUMMARY | 2022-02-06 10:30 | XMS_ITS | Encounter Summary ---
:1965 Author Organization [facility] Address [address] [place] [address] Care Team Providers Name Role Phone Jose Colin DO Primary Care Provider [phone] Reason for Visit Reason Onset Date Comments QUESTIONS, GENERAL 02/27/2007 Encounter Details Date Type Department Care Team Description 02/27/2007 Telephone [facility] Internal Med mikaylane Jose Colin QUESTIONS, GENERAL [address] [facility], [place] [address] [address] [facility] [phone] [place] [address] (Wo rk) Social History Tobacco [...] can be reached at work until 3:30pm ([phone]). Please call as soon as you can. Thank-you! Sincerely, Nestor Mitchell Her documented in this encounter Plan of Treatment Not on filedocumented as of this encounter Visit Diagnoses Diagnosis GERD (gastroesophageal reflux disease) - Primary Esophageal reflux documented in this encounter Care Teams Towel Folder Relationship Specialty Start Date End Date Jose Colin DO PCP - General 12/24/03 09/17/08 [address] [place] [address] documented as of this encounter
--- OUTSIDE RECORDS SUMMARY | 2022-02-06 10:30 | XMS_ITS | Encounter Summary ---
:1965 Author [facility] Address [address], [place] [address] Care Team Providers Name Role Phone Unassigned, Provider Primary Care Provider Unavailable Encounter Details Date Type Department Care Team Description 02/19/2006 Outside Hospital External to Rissa Dhillon OPE RATIVE REPORT- [facility] Social History Tobacco Use Types Packs/Day [...] on filedocumented in this encounter Care Teams Batcher Operator Relationship Specialty Start Date End Date Unassigned, Provider PCP - General 09/18/[address] [place] [address] documented as of this encounter
--- OUTSIDE RECORDS SUMMARY | 2022-02-06 10:30 | XMS_ITS | Encounter Summary ---
:1965 Author Organization [facility] Address [address] [place] [id number] Care Team Providers Name Role Phone NickiJose murphy Edilia BOOGIE Primary Care Provider [phone] Encounter Details Date Type Department Care Team Description 04/15/2007 Surgery RH Operating Room Zachary Kirkland MD FUSION SACRAL ILIAC [address] [facility]. [address] [place] [address] [place] [address] [phone] (Wo rk) Social History Tobacco Use Types Packs/Day Years Used Date Smoking Tobacco: Never Alcohol Use Standard Drinks/Week Comments Yes 0 (1 standard drink = 0.6 oz pure alcoho l) rarely Sex Assigned at Date Recorded Not on file documented as of this encounter Last Filed Vital Signs Vital Sign Reading Time Taken Comments Blood Pressure 123/70 04/15/2007 6:07 AM REINSPECTOR Pulse 65 04/15/2007 6:07 AM REINSPECTOR Temperature 37.2 ??C (98.9 ??F) 04/15/2007 6:07 AM REINSPECTOR Respiratory Rate 16 04/15/2007 6:07 AM REINSPECTOR Oxygen Saturation 99% 04/15/2007 6:07 AM REINSPECTOR Inhaled Oxygen Concentration - - Weight 89.4 kg (197 lb) 04/15/2007 6:07 AM REINSPECTOR Height 160 cm (5' 3) 04/15/2007 6:07 AM REINSPECTOR Body Mass Index 34.9 04/15/2007 6:07 AM REINSPECTOR documented in this encounter Discharge Summaries Zachary Kirkland - 05/15/2007 9:55 AM REINSPECTOR ADMIT DATE: 04/15/2007 DISCHARGE DATE: 04/19/2007 FINAL [...] aspirin for anticoagulation prophylaxis. 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 Please read the following instructions carefully. The staff will go over this information with you and answer your questions. General Information Allergies: Erythromycin Immunization: Most Recent Immunizations Name Date(s) Administered * Td, Preservative Free 06/16/2005 Phone number: [phone] (home) [phone] (work) Discharging physician: RICHARD Discharge date: 04/19/07 [...] the anticoagulation order. Contact information (name/clinic/phone number): [phone] When to Resume Normal Activities: Order Comments: [...] been sent to the following clinic:{[facility] FAX DESTINATION:[id number]} Home Care Instructions Patient Teaching Handouts INCISION [...] and/or chills Community Resources NONE Contact Information [address] [id number] For questions about your discharge instructions call the nursing unit : 9E Emergency & Urgently Needed Care: For emergencies call 911 and/or get medical help right away. If you are a [employer] member and have medical needs after clinic hours you may call the CareLine at [phone] or . Smoking and second-hand smoke exposure: Smoking damages blood vessels, reduces the oxygen in your blood and makes your heart beat too fast.If you smoke you should quit. Everyone should avoid second- hand smoke. If you would like further assistance after your discharge, please contact [phone] [facility] or visit [email or web address] can offer further information and assistance. You will receive a patient satisfaction survey either at the time of discharge or by mail in about two weeks. We want to hear about your stay at [facility]. Please help us improve by telling us about your experience . When leaving your room at discharge, please stop at the nursing unit desk to check out. I understand my discharge instructions: Megan Wong (or Cushion Cover Inspector) SPECTOR documented in this encounter Medications at Time [...] Ant Thomas - 04/19/2007 6:27 PM CST [facility] Hospital Discharge Note - Nursing Patient [...] by: Robert Pelaez RN ---End of Report--- SPECTOR Maria E Galindo - 04/19/2007 2:25 PM CST I have evaluated this patient and reviewed all related documentation. Maria E Galindo RN 04/19/2007 2:[address] Gilliland - 04/19/2007 1:56 AM CST [facility] Progress Note (Nursing) Patient Name: [...] movement Lane Ballesteros, ---End of Report --- SPECTOR Patti Lynch - 04/18/2007 10:57 PM CST [facility] Progress Note (Nursing) Patient Name: [...] Patti Bahena RN ---End of Report --- SPECTOR Jessica Romero - 04/18/2007 4:13 PM CST [facility] PT Progress Note Patient Name: [...] Rosalia Sotelo - 04/18/2007 2:03 PM CST [facility] Progress Note (Nursing) Patient Name: [...] Rosalia Schafer LPN ---End of Report --- SPECTOR Sloane Harvey - 04/18/2007 2:03 PM CST PT HAS BEEN ASSESSED,AGREE WITH NOTE AND PLAN OF CARE. SPECTOR Jessica Romero - 04/18/2007 12:57 PM CST [facility] PT Progress Note Patient Name: [...] stairs upon d/c initially. Jessica Romero, PT SPECTOR Rosina Morgan - 04/18/2007 11:44 AM CST [facility] [place] Occupational Therapy Progress Note Patient Name: Megan [...] minutes MIGUEL Holcomb/Marcos (pager) OT Dept #: [phone] - OT Weekend Pager #: [phone] - [facility] Main #: [phone] SPECTOR Irene Mascorro - 04/18/2007 9:15 AM CST [facility] Progress Note (MD) Patient Name: Megan Wong Date of : 1965 Date of service: 04/18/07 Diagnosis: Sacroiliac fusion, fever, abdominal pain, prior lumbar fusion Admit Date/Time: 04/15/2007 5:32 AM Attending Prov: Zachary Kirkland Patient Service: Orthopedics Subjective: Patient feeling much better. PUNCH MOLDER stopped yesterday. Ambulating. Still has LLQ pain [...] 9:22 AM --- End of Report --- SPECTOR Hannah Borrego - 04/18/2007 2:36 AM CST [facility] Progress Note (Nursing) Patient Name: [...] Taniya Hanley - 04/17/2007 9:31 PM CST [facility] Progress Note (Nursing) Patient Name: [...] fax to Facility [facility]/ care coordinated with [facility] on duty. Refused flu vaccine and MOM ordered. Afebrile the whole shift. With pending blood cultures x 2 sites today and cxray results..IS at max volume when able. Plan: Monitor for comfort Continue cares Taniya Brewster RN ---End of Report --- SPECTOR Zachary Kirkland - 04/17/2007 6:43 PM CST Post op day two. Alert, CMS intact, Reasonable comfort Progressing in PT No complication Zachary Kirkland MD SPECTOR Sena Zamarripa - 04/17/2007 3:27 PM CST [...] bowel sounds present. No tenderness and distension. SUPERVISOR DIE CASTING Alert and oriented. Extremeties: No pitting edema, [...] 1 Tab Oral TID ??? HYDROmorphone (DILAUDID) PUNCH MOLDER 10 mg in NS 50 mL IV [...] fusion 4) Post-op pain control - dilaudid PUNCH MOLDER To continue IVF. Sena Zamarripa MD 04/17/2007, 3:32 PM [phone] Date of Service: 04/17/2007 Report completed by: Sena Zamarripa MD ([facility]) at 3:27 PM on 04/17/2007 SPECTOR Jessica Romero - 04/17/2007 2:55 PM CST [facility] PT Progress Note Patient Name: [...] bid in dept tomorrow. Jessica Romero, PT SPECTOR Iván Shin - 04/17/2007 11:56 AM CST [facility] Progress Note (Nursing) Patient Name: [...] Iván Shin RN ---End of Report --- SPECTOR Kia Infante - 04/17/2007 11:39 AM CST [facility] Care Management Principal Automation Engineer Initial Assessment Name: Megan Wong Admission Date/Time: 04/15/2007 5:32 AM Attending MD: Zachary Kirkland DATA Megan Wong was referred to this Principal Automation Engineer for discharge planning. Chart reviewed, discussed with interdisciplinary team, as well as with patient and family. Megan Wong was admitted to for a L SI fusion Insurance: Payor: [employer] S[employer] [id number] Plan: [employer] INSURED Product Type: *No [...] completed by Kia Infante RN, Pager Number [phone] SPECTOR Christy Pizarro - 04/17/2007 1:31 AM CST [facility] Progress Note (Nursing) Patient Name: [...] Sandra Cabrera - 04/16/2007 9:35 PM CST [facility] Progress Note (Nursing) Patient Name: [...] 2500 cc of urine output via emery,dialudid PUNCH MOLDER discontinued and pt started on oral meds, notified regarding pt status and request for oycontin,pt bathed and repostitioned. Plan: Continue to monitor, turn Q2 hours, reassess need for emery in am, encourage IS. Sandra Blackmon RN ---End of Report --- SPECTOR Irene Mascorro - 04/16/2007 6:00 PM CST [facility] Progress Note (MD) Patient Name: [...] pyelonephritis. Incision pain okay, but on dilaudid PUNCH MOLDER. Occasionally desats due to sleepiness, but sats [...] 1 Tab Oral TID ??? HYDROmorphone (DILAUDID) PUNCH MOLDER 10 mg in NS 50 mL IV [...] NS 7) Post-op pain control - dilaudid PUNCH MOLDER Total time for chart review, exam and interview, following up on labs and ultimately reviewing AXR 35 minutes, coordination of care > 50%. Report Completed by: Irene Mascorro MD --- End of Report --- SPECTOR Leanna French - 04/16/2007 2:14 PM CST [facility] Progress Note (Nursing) Patient Name: Megan Wong Date of : 1965 Identify/Problem(s): GENERAL STATU. Desired Outcome(s): Will be stabilized. Evaluation: Pt oriented but quite sleepy. On gem technician dilaudid with adequate pain control. C/o nausea, received prn zofran with relief. Incision to lower back is intact with some shadowing. Cms to LE intact. Vss exceptfor temp of 99.5 and 100.9 at 0800 and noon respectively. Lungs clear, encouraged IS usage. MD updated. Plan: Cont to monitor, assess and medicate as indicated. Leanna Perales Mba, RN ---End of Report --- SPECTOR Rosina Morgan - 04/16/2007 1:02 PM CST [facility] Occupational Therapy The patient is scheduled to be seen by OT. MIGUEL Holcomb/Marcos (pager) OT Dept #: [phone] - OT Weekend Pager #: [phone] - [facility] Main #: [phone] Gavin Ortiz - 04/16/2007 10:25 AM CST [facility] Clinical Pharmacy Medication Reconciliation Note Patient Name: Megan Wong Date of : 1965 Medications Reviewed and Reconciled: Any medication adjustments made from patient's medication history regimen are appropriate for current hospitalization and medical condition. PHARMACIST NAME: Gavin Sanchez Phone/Pager #: [phone] -- End of Report -- Huseyin Dey - 04/16/2007 7:59 AM CST [facility] Progress Note (Nursing) Patient Name: Megan Wong Date of : 1965 Identify/Problem(s): pain Desired Outcome(s): Will have maximum Evaluation: Pt neuro intact, lower back incision d/i with small shadow, takes I.S to 1250, got 50mg of atarax for muscle pain with relief, repositioned often on this shift. BP improved. Used 4.73 mg of dilaudid PUNCH MOLDER-- new syringe placed at 0800. Presently lying down in bed without problem. Plan: Will continue to monitor Huseyin Miguel RN ---End of Report --- Zachary Porter - 04/16/2007 7:53 AM CST Post op day one Alert, CMS intact Reasonable comfort. No complication evident P: per protocol PT Zachary Kirkland MD Sandra Cabrera - 04/15/2007 11:57 PM CST [facility] Progress Note (Nursing) Patient Name: [...] of shadowing noted, pain controlled with dilaudid PUNCH MOLDER (14.9 mg of dilauid used) and atarax, emery patent with good amount of output, plexipulses on BLE. Plan: Continue to monitor. Sandra Blackmon RN ---End of Report --- Iván Pinto - 04/15/2007 1:30 PM CST [facility] Nursing Post-Op Note Patient Name: Megan Wong Date of : 1965 Admission Date/Time: 04/15/2007 5:32 AM Returned to: 9E on (date) 04/15/07 at (time) 1230 from P.A.R. Transported by: Litter/cart Medical devices present on return from O.R.: IV General condition on return from O.R.: fair Report Completed by: Iván Shin RN ---End of Report--- SPECTOR Zachary Kirkland - 04/15/2007 8:03 AM CST Post op note Left SI fusion for sacralgia No complications EBL 100 cc Plan per orders, PUNCH MOLDER, PT home in 2-3 days Zachary Kirkland MD SPECTOR documented in this encounter Procedure Notes Zachary [...] was prepped and draped prone on a 4-pugger helper. A longitudinal incision was made under x-ray [...] touch weight-bearing for 6 weeks, Lovenox and PUNCH MOLDER Dilaudid, home in 2-3 days. Zachary Kirkland MD mjb Dictated: 04/15/2007 11:00:01 Transcribed: 04/15/2007 11:53:11 Doc #: [id number] cc:Zachary Kirkland MD, Referring Physician Jose Colin, , Primary Physician DO NOT SIGN UNLESS PRESENT FOR PROCEDURE I attest that I was present for and participated in the ma portions of this procedure(s) in compliance with the Health Care Financing Administration Teaching Physician Guidelines. 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 BLOOD CULTURE SITE 2 Routine 04/17/2007 6:15 PM R esults for this REINSPECTOR procedure are i n the results section. BLOOD CULTURE Routine 04/17/2007 5:50 PM Results for this REINSPECTOR procedure are i n the results section. CHEST PA/LATERAL Routine 04/17/2007 3:51 PM Resul ts for this REINSPECTOR procedure are i n the results section. BASIC METABOLIC PANEL Routine 04/17/2007 7:10 AM Results for this REINSPECTOR procedure are i n the results section. COMPLETE BLOOD Routine 04/17/2007 7:10 AM Results for this COUNT-NO DIFF REINSPECTOR procedure are in the results section. URINE CULTURE Routine 04/16/2007 8:45 PM Results for this REINSPECTOR procedure are i n the results section. UA CONDITIONAL UC Routine 04/16/2007 8:45 PM Resu lts for this REINSPECTOR procedure are i n the results section. BLOOD CULTURE SITE 2 Routine 04/16/2007 8:00 PM R esults for this REINSPECTOR procedure are i n the results section. GOLD HOLD TUBE (OR Routine 04/16/2007 8:00 PM Res ults for this RED/LOPEZ) REINSPECTOR procedure are i n the results section. BLOOD CULTURE Routine 04/16/2007 8:00 PM Results for this REINSPECTOR procedure are i n the results section. BASIC METABOLIC PANEL Routine 04/16/2007 8:00 PM Results for this REINSPECTOR procedure are i n the results section. BILIRUBIN, TOTAL & Routine 04/16/2007 8:00 PM Res ults for this DIRECT REINSPECTOR procedure are i n the results section. COMPLETE BLOOD Routine 04/16/2007 8:00 PM Results for this COUNT-NO DIFF REINSPECTOR procedure are in the results section. ALT (SGPT) Routine 04/16/2007 8:00 PM Results f or this REINSPECTOR procedure are i n the results section. AST Routine 04/16/2007 8:00 PM Results f or this REINSPECTOR procedure are i n the results section. ALKALINE PHOSPHATASE, Routine 04/16/2007 8:00 PM Results for this TOTAL REINSPECTOR procedure are i n the results section. CT PELVIS WITHOUT IV Routine 04/16/2007 10:40 Res ults for this CONTRAST AM REINSPECTOR procedure are i n the results section. AP PELVIS Routine 04/15/2007 10:50 Results for this AM REINSPECTOR procedure are i n the results section. FUSION SACRAL ILIAC AM Admit 04/15/2007 7:50 AM SI PAIN REINSPECTOR Case Notes PROC: LEFT SI FUSION ABO RH & ANTIBODY SCREEN STAT 04/15/2007 6:50 AM REINSPECTOR Results for this procedure (TYPE & SCREEN) are in the r esults section. documented in this encounter Results (ABNORMAL) HEMOGRAM/PLTS (04/18/2007 6:25 AM REINSPECTOR) P athologist Signature WBC 10.3 4.0 - [...] Volume Laterality 04/18/2007 6:25 AM 7 6:36 REINSPECTOR AM REINSPECTOR Eddiedaedilia Zamarripa MD LAB_1 Performing Organization Address City/State/ZIP Code Phon e Number [address] [address] [place], [place] [phone] BLOOD CULTURE SITE 2 (04/17/2007 6:15 PM REINSPECTOR) Component Value Ref Test Analysis Performed At Patholo gist Range Method Time Signature Specimen Blood REGIONS Description VENIPUNCTURE Special Site 2 REGIONS Requests Venipuncture Culture No Growth After REGIONS 6 Days Report Status Final 04/23/2007 REGIONS Specimen Anatomical Location Collection Method Collection Time Received Time (Source) / Laterality / Volume Blood specimen VENIPUNCTURE / 04/17/2007 6:15 04/17/20 07 8:14 (specimen) Unknown PM REINSPECTOR PM REINSPECTOR Sena Zamarripa MD LAB_1 Performing Organization Address [facility]/ZIP [facility] Phon e Number [address] [address] [place], [place] [phone] BLOOD CULTURE SITE 1 (04/17/2007 5:50 PM REINSPECTOR) [facility] gist Method Time Signature Specimen Blood AT IV REGIONS Description INSERTION Special Site 1 At IV REGIONS Requests Insertion Culture No Growth REGIONS After 6 Days Report Status Final REGIONS 04/23/2007 Specimen Anatomical Collection Method Collection Time Receive d Time (Source) Location / / Volume Laterality Blood specimen 04/17/2007 5:50 PM 007 6:25 (specimen) (At REINSPECTOR PM REINSPECTOR IV Insertion) Sena Zamarripa MD LAB_1 Performing Organization Address City/[facility] Phon e Number [address] [address] [place], [place] [phone] CHEST PA/LATERAL (04/17/2007 3:51 PM REINSPECTOR) Anatomical Region Laterality Modality Other Specimen (Source) Anatomical Collection Method Collection Time Re ceived Time Location / / Volume Laterality 04/17/2007 3:51 PM REINSPECTOR Narrative 04/19/2007 1:34 PM REINSPECTOR pneumonia: FEVER . CHEST 2 VIEWS 04/17/07 INDICATION: ??Fever and pneumonia. COMPARISON: ??None. FINDINGS: ??No infiltrates. ??Heart norm al size allowing for technique. Post-op change lower cervical spine. Sena Zamarripa MD RAD GENERAL DIAGNOSTIC/RH (ABNORMAL) BASIC METABOLIC PANEL (04/17/2007 7:10 AM REINSPECTOR) athologist Signature BUN 5 (L) 10 - [...] Volume Laterality 04/17/2007 7:10 AM 7 7:30 REINSPECTOR AM REINSPECTOR Irene Mascorro MD LAB_1 Performing Organization Address [facility] Phon e Number [address] [address] [place], [place] [phone] (ABNORMAL) HEMOGRAM/PLTS (04/17/2007 7:10 AM REINSPECTOR) [facility] WBC 11.0 4.0 - 11.0 REGIONS k/ul [...] Volume Laterality 04/17/2007 7:10 AM 7 7:30 REINSPECTOR AM REINSPECTOR Irene Mascorro MD LAB_1 Performing Organization Address [facility] Phon e Number [address] [address] [place], [place] [phone] URINE CULTURE (04/16/2007 8:45 PM REINSPECTOR) [facility] Method Time Signature Specimen Urine REGIONS Description Special Unspecified REGIONS Requests Culture No Growth After REGIONS 2 Days Report Status Final REGIONS 04/18/2007 Specimen Anatomical Collection Method Collection Time Receive d Time (Source) Location / / Volume Laterality 04/16/2007 8:45 PM 7 9:17 REINSPECTOR PM REINSPECTOR Zachary Kirkland MD LAB_1 Performing Organization Address [facility] Phon e Number [address] [address] [place], [place] [phone] (ABNORMAL) UA CONDITIONAL UC (04/16/2007 8:45 PM REINSPECTOR) [facility] Method Time Signature Urine Color None REGIONS Urine Clarity Clear REGIONS Specific 1.001 (L) 1.005 - REGIONS [place] 1.03 pH, Urine 5.5 4.5 - 8.0 [...] specimen 04/16/2007 8:45 PM 007 9:00 (specimen) REINSPECTOR PM REINSPECTOR Irene Mascorro MD LAB_1 Performing Organization Address [facility] Phon e Number [address] [address] [place], [place] [phone] GOLD HOLD TUBE (OR RED/LOPEZ) (04/16/2007 8:00 PM REINSPECTOR) [facility] Method [place] Signature Gold Hold Held in REGIONS Tube Chemistry sample rack for 7 days Specimen Anatomical Collection Method Collection Time Receive d Time (Source) Location / / Volume Laterality 04/16/2007 8:00 PM 7 8:21 REINSPECTOR PM REINSPECTOR Irene Mascorro MD LAB_1 Performing Organization Address [facility] Phon e Number [address] [address] [place], [place] [phone] BILIRUBIN, TOTAL & DIRECT (04/16/2007 8:00 PM REINSPECTOR) athologist Signature Bilirubin, 0.8 0.2 - 1.2 REGIONS Total mg/dl Bilirubin, 0.2 0.1 - 0.4 REGIONS Direct mg/dl Specimen Anatomical Collection Method Collection Time Receive d Time (Source) Location / / Volume Laterality 04/16/2007 8:00 PM 7 8:21 REINSPECTOR PM REINSPECTOR Irene Mascorro MD LAB_1 Performing Organization Address [facility] Phon e Number [address] [address] [place], [place] [phone] ALKALINE PHOSPHATASE, TOTAL (04/16/2007 8:00 PM REINSPECTOR) athologist Signature Alkaline 77 34 - 104 REGIONS Phosphatase U/L Specimen Anatomical Collection Method Collection Time Receive d Time (Source) Location / / Volume Laterality 04/16/2007 8:00 PM 7 8:21 REINSPECTOR PM REINSPECTOR Irene Mascorro MD LAB_1 Performing Organization Address City/[facility] Phon e Number [address] [address] [place], [place] [phone] ALT (SGPT) (04/16/2007 8:00 PM REINSPECTOR) P athologist Signature ALT (SGPT) 12 0 - 55 U/L REGIONS Specimen Anatomical Collection Method Collection Time Receive d Time (Source) Location / / Volume Laterality 04/16/2007 8:00 PM 7 8:21 REINSPECTOR PM REINSPECTOR Irene Mascorro MD LAB_1 Performing Organization Address City/[facility]/ZIP [facility] Phon e Number [address] [address] [place], [place] [phone] AST (04/16/2007 8:00 PM REINSPECTOR) athologist Signature AST (SGOT) 21 <45 U/L REGIONS Specimen Anatomical Collection Method Collection Time Receive d Time (Source) Location / / Volume Laterality 04/16/2007 8:00 PM 7 8:21 REINSPECTOR PM REINSPECTOR Irene Mascorro MD LAB_1 Performing Organization Address [facility] Phon e Number [address] [address] [place], [place] [phone] (ABNORMAL) BASIC METABOLIC PANEL (04/16/2007 8:00 PM REINSPECTOR) athologist Signature BUN 4 (L) 10 - [...] Volume Laterality 04/16/2007 8:00 PM 7 8:21 REINSPECTOR PM REINSPECTOR Irene Mascorro MD LAB_1 Performing Organization Address [facility] Phon e Number [address] [address] [place], [place] [phone] (ABNORMAL) HEMOGRAM/PLTS (04/16/2007 8:00 PM REINSPECTOR) P athologist Signature WBC 10.8 4.0 - [...] Volume Laterality 04/16/2007 8:00 PM 7 8:21 REINSPECTOR PM REINSPECTOR Irene Mascorro MD LAB_1 Performing Organization Address [facility] Phon e Number [address] [address] [place], [place] [phone] BLOOD CULTURE SITE 2 (04/16/2007 8:00 PM REINSPECTOR) Component Value Ref Test Analysis Performed At [facility] [place] Range Method Time Signature Specimen Blood REGIONS Description Special Venipuncture REGIONS Requests Culture No Growth After REGIONS 6 Days Report Status Final 04/22/2007 REGIONS Specimen Anatomical Location Collection Method Collection Time Received Time (Source) / Laterality / Volume Blood specimen VENIPUNCTURE / 04/16/2007 8:00 04/16/20 07 8:56 (specimen) Unknown PM REINSPECTOR PM REINSPECTOR Irene Mascorro MD LAB_1 Performing Organization Address City/[facility] Phon e Number [address] [address] [place], [place] [phone] BLOOD CULTURE SITE 1 (04/16/2007 8:00 PM REINSPECTOR) Component Value Ref Test Analysis Performed At [facility] [place] Method Time Signature Specimen Blood REGIONS Description Special Venipuncture REGIONS Requests Culture No Growth After REGIONS 6 Days Report Status Final 04/22/2007 REGIONS Specimen Anatomical Location Collection Method Collection Time Received Time (Source) / Laterality / Volume Blood specimen VENIPUNCTURE / 04/16/2007 8:00 04/16/20 07 8:57 (specimen) Unknown PM REINSPECTOR PM REINSPECTOR Irene Mascorro MD LAB_1 Performing Organization Address City/State/ZIP Code Phon e Number [address] [address] [place], [place] [phone] CT PELVIS WITHOUT IV CONTRAST (04/16/2007 10:40 AM REINSPECTOR) Anatomical Region Laterality Modality Other Specimen (Source) Anatomical Collection Method Collection Time Re ceived Time Location / / Volume Laterality 04/16/2007 10:40 AM REINSPECTOR Impressions 04/19/2007 12:07 PM REINSPECTOR IMPRESSION: Three Ray cages in the left sacroiliac j oint extra-articular recess. ??No evidence of loosening. ??Co mplete bony fusion is not yet appreciated. Narrative 04/19/2007 12:[address] sacrum, donna sacral joints from L4-acetabulum, [...] RAD CT/RH AP PELVIS (04/15/2007 10:50 AM REINSPECTOR) Anatomical Region Laterality Modality Other Specimen (Source) Anatomical Collection Method Collection Time Re ceived Time Location / / Volume Laterality 04/15/2007 10:50 AM REINSPECTOR Narrative 04/15/2007 10:50 AM REINSPECTOR LEFT SI FUSION IN O.R.15 AT [phone] HRS. Zachary Kirkland MD RAD GENERAL DIAGNOSTIC/RH ABO Rh & Antibody Screen (Type & Screen) (04/15/2007 6:50 AM REINSPECTOR) Patholo gist Method Time Signature Crossmatch 04/18/2007 REGIONS Expires ABO/RH(D) O POSITIVE REGIONS Antibody NEGATIVE REGIONS Screen Specimen Anatomical Collection Method Collection Time Receive d Time (Source) Location / / Volume Laterality 04/15/2007 6:50 AM 7 6:56 REINSPECTOR AM REINSPECTOR Zachary Kirkland MD LAB_1 Performing Organization Address City/State/ZIP Code Phon e Number [address] [address] [place], [place] [phone] documented in this encounter Visit Diagnoses Initial Assessments - Rosina Morgan - 04/17/2007 11:[address] [facility] Orthopedic ADL Evaluation Patient Name: [...] and safety the following equipment is recommended: Beaver Trapper: patient has Standard shower chair without backrest: patient has Additional Information: The patient had a sacroiliac fusion and is TDWB on the left LE. The patient lives with her and daughters. She states they will be able to assist her at home. The patient was able to complete lower body dressing with a manager supply chain which she used previously at home. Will [...] home MIGUEL Holcomb/Marcos (pager) OT Dept #: [phone] - OT Weekend Pager #: [phone] - [facility] Main #: [phone] SPECTOR Initial Assessments - Jessica Romero - 04/16/2007 2:07 PM CST [facility] Physical Therapy Evaluation Patient Name: Megan [...] minutes Jessica Romero PT Phone number is [phone] Pager: [phone] SPECTOR Initial Assessments - Iván Shin - 04/15/2007 1:09 PM CST [facility] Med-Surg, ICU Initial Assessment Note Patient Name: Megan Wong Date of : 1965 General Information Demographics Admitted from: OR to 9E Reason for admission: SI Fusion [facility] admission date/time: 04/15/2007 5:32 AM Actual [...] of age or older OR patient has detention 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 No Spiritual/Adventism Is the nurse aware, at present, of any needs or issues for which support from the hospital fuse cup expander might be helpful to patient and/or family? (e.g. need or desire for spiritual support, difficulty coping, end of life issues, grief/loss, etc.) No. ([facility] makes daily rounds to all nondenominational patients.) Cultural On the Best Care/Best Experience [...] contributed to the completion of this document. SPECTOR documented in this encounter Active and Recently Administered Medications Times are shown in REINSPECTOR. Scheduled Medication Order 04/17/2007 04/18/2007 04/19/2007 calcium [...] ued documented in this encounter Care Teams Top Stitcher Relationship Specialty Start Date End Date Jose Colin DO PCP - General 12/24/03 09/17/08 [address] [place] [address] documented as of this encounter
--- OUTSIDE RECORDS SUMMARY | 2022-02-06 10:30 | XMS_ITS | Encounter Summary ---
:1965 Author Organization [facility] Address [address], [place] [address] Care Team Providers Name Role Phone Jose Colin DO Primary Care Provider [phone] Encounter Details Date Type Department Care Team Description 02/15/2006 Notes/Orders [facility] Brigido Patel, Other Best Lee RN Pre-Operative 205 [facility] [address] [facility] Examination ([place] [address] [place], [place] Dx) [phone] Social History Tobacco Use Types Packs/Day Years [...] tonight and results will be faxed to [facility] Brigido Bates RN >> BRIGIDO BATES Elda [...] UA WITH MICRO (02/15/2006 6:38 PM CDT) [facility] gist Method Time Signature Appr Yellow [...] Number [facility] [phone] [facility] [phone] APTT (ACTIVATED PARTIAL THROMBOPLASTIN TIME (02/15/2006 6:38 PM CDT) athologist Signature PTT 27.6 24.0 - 37.0 [facility] sec Comment: Pre-Op [facility] Specimen Anatomical Collection Method Collection Time Receive d Time (Source) Location / / Volume Laterality 02/15/2006 6:38 PM 6 6:39 CDT PM CDT Jose Colin DO LAB_1 Performing Organization Address [facility]/ZIP [facility] Phon e Number [employer] [phone] [facility] [address] [place] [phone] SODIUM (02/15/2006 6:38 PM CDT) athologist Signature Sodium 140 135 - 145 [facility] mmol/L Comment: Performed at [facility] Specimen Anatomical Collection Method Collection Time Receive d Time (Source) Location / / Volume Laterality 02/15/2006 6:38 PM 6 6:39 CDT PM CDT Jose Colin DO LAB_1 Performing Organization Address [facility] Phon e Number [employer] [phone] [facility] [address] [place] [phone] POTASSIUM (02/15/2006 6:38 PM CDT) athologist Signature Potassium 4.3 3.5 - 5.3 [facility] mmol/L Comment: Performed at [facility] Specimen Anatomical Collection Method Collection Time Receive d Time (Source) Location / / Volume Laterality 02/15/2006 6:38 PM 6 6:39 CDT PM CDT Jose Colin DO LAB_1 Performing Organization Address [facility] Phon e Number [employer] [phone] [facility] [address] [place] [phone] INR/PROTIME (02/15/2006 6:38 PM CDT) athologist Signature Protime 12.9 12.0 - 14.5 [facility] sec Comment: Pre-Op Coumadin No [facility] INR 0.9 [facility] Pre-Op Specimen Anatomical Collection Method Collection Time Receive d Time (Source) Location / / Volume Laterality 02/15/2006 6:38 PM 6 6:39 CDT PM CDT Jose Colin DO LAB_1 Performing Organization Address City/[facility]/ZIP Code Phon e Number [employer] [phone] [facility] [address] [place] [phone] HEMOGRAM/PLTS/DIFF (02/15/2006 6:38 PM CDT) P [...] Lymph 36 17 - 43 % [facility] Eaton 10 4 - 12 % [facility] Eos 3 0 - 8 % [facility] Baso 1 0 - 1 % [facility] Neutrophil 3.8 1.8 - 7.7 [facility] Absolute k/ul Lymph Absolute 2.7 1.0 - 4.8 [facility] k/ul Eaton Absolute 0.7 0.1 - 0.7 [facility] k/ul Eos Absolute 0.2 0.0 - 0.5 [facility] k/ul Baso Absolute 0.1 0.0 - 0.2 [facility] k/ul Specimen Anatomical Collection Method Collection Time Receive d Time (Source) Location / / Volume Laterality 02/15/2006 6:38 PM 6 6:39 CDT PM CDT Jose Hassanangelitakatherine DO LAB_1 Performing Organization Address City/[facility]/ZIP Code Phon e Number [employer] [phone] [facility] [address] [phone] documented in this encounter Visit Diagnoses Diagnosis Other specified pre-operative examinatio n - Primary documented in this encounter Care Teams Subgrade Roller Operator Relationship Specialty Start Date End Date Jose Colin DO PCP - General 12/24/03 09/17/08 [address] [place] [address] documented as of this encounter
--- OUTSIDE RECORDS SUMMARY | 2022-02-06 10:30 | XMS_ITS | Encounter Summary ---
:1965 Author Organization [facility] Address [address] [place] [address] Care Team Providers Name Role Phone Jose Colin DO Primary Care Provider [phone] Reason for Visit Reason Onset Date Comments LAB TESTS, NOS 02/15/2006 Encounter Details Date Type Department Care Team Description 02/15/2006 Telephone Sunshine Alston CONSERVATION ASSISTANT TESTS, NOS [address] AFTER HOU[facility] - [place], [place] [address] CARELINE [phone] [place], [place] [address] Social History Tobacco Use Types Packs/Day Years [...] has to be done and faxed to [facility] by tomorrow in order for her [...] t they received it. Call transferred to [facility]. Sunshine Landa RN documented in this encounter Plan of Treatment Not on filedocumented as of this encounter Visit Diagnoses Not on filedocumented in this encounter Care Teams Medical Writer Relationship Specialty Start Date End Date Jose Colin DO PCP - General 12/24/03 09/17/08 [address] [place] [address] documented as of this encounter
--- OUTSIDE RECORDS SUMMARY | 2022-02-06 10:30 | XMS_ITS | Encounter Summary ---
:1965 Author Organization [facility] Address [address] [place] [address] Care Team Providers Name Role Phone Jose Colin DO Primary Care Provider [phone] Reason for Visit Reason Comments Suture/Staple Removal from back, incesion to abd w ith no visable sutures, no signs of infections. Encounter Details Date Type Department Care Team Description 03/01/2006 Office Visit [facility] Juanito Panda, Spinal Fusion (Primary Medicine MD Dx) [address] [place] [address] Social History Tobacco Use Types Packs/Day [...] dictated. documented in this encounter Consult Notes Juantio Panda - 03/01/2006 12:00 AM CDTSUBJECTIVE: This 40-year-old, white female is followed by Dr. Colin. Patient recently underwent an AP fusion of L5-S1 at [facility] on 02/19/[address] Kirkland. For complete [...] status documented in this encounter Care Teams Gear Roller Relationship Specialty Start Date End Date Jose Colin DO PCP - General 12/24/03 09/17/08 [address] [place] [address] documented as of this encounter
--- OUTSIDE RECORDS SUMMARY | 2022-02-06 10:30 | XMS_ITS | Encounter Summary ---
:1965 Author Organization [facility] Address [address] [place] [address] Care Team Providers Name Role Phone Jose Colin DO Primary Care Provider [phone] Reason for Visit Reason Comments PRE-OP EXAM Encounter Details Date Type Department Care Team Description 02/13/2006 Office Visit [facility] Internal [place] Preoperativ e Examination (Primary Dx); Medicine Jose Allan DO Lumbar Disc Disease; 205 [facility] [address] GERD (Gastroesophageal Reflux Disease); [place] [address] [place], [place] Insomnia [phone] [address] Social History Tobacco Use Types Packs/Day Years [...] for surgery. She [facility] on 02[facility] Zachary Kirkland. HPI: [...] Occupational History Occupation Employer Comment [employer] Social History Main Topics Tobacco Use: [...] unspecified documented in this encounter Care Teams Retort Condenser Attendant Relationship Specialty Start Date End Date Jose Colin DO PCP - General 12/24/03 09/17/08 [address] [place] [address] documented as of this encounter
--- OUTSIDE RECORDS SUMMARY | 2022-02-06 10:30 | XMS_ITS | Encounter Summary ---
:1965 Author Organization [facility] Address [address] [place] [address] Care Team Providers Name Role Phone DixieJose Jerrell BOOGIE Primary Care Provider [phone] Reason for Visit Reason Comments Post Op Exam Encounter Details Date Type Department Care Team Description 11/20/2005 Office Visit [facility] Obstetrics and Yun Varma EN DOMETRIAL POLYP (Primary Dx); Gynecology EXCESSIVE MENSTRUATION [address] [place] [address] Social History Tobacco Use Types [...] CDT >> ALLISON HERRERA 11/20/2005 3:12 pm DIRECTOR EMERGENCY POST OPERATIVE NURSE NOTE Megan Choi presents for post operative follow up. Date of surgery:11/07/05 Procedure: hysteroscopy dc Surgeon: dr varma PAIN ASSESSMENT: Ratin Duration: Not applicable Description: Cramping [place]/sutures removed: NO Fever: NO Is home health [...] menstruation documented in this encounter Care Teams Fine Jewelry Sales Associate Relationship Specialty Start Date End Date Jose Colin DO PCP - General 12/24/03 09/17/08 [address] [place] [address] documented as of this encounter
--- OUTSIDE RECORDS SUMMARY | 2022-02-06 10:30 | XMS_ITS | Encounter Summary ---
:1965 Author Organization [facility] Address [address] [place] [address] Care Team Providers Name Role Phone Jose Stack DO Primary Care Provider [phone] Reason for Visit Reason Onset Date Comments Refill 02/23/2007 Encounter Details Date Type Department Care Team Description 02/23/2007 Refill [facility] Jose Stack, Refill 205 [facility] [address] [place] [address] [place], [place] [phone] (Wo rk) Social History Tobacco Use [...] reflux documented in this encounter Care Teams Car Repairer Relationship Specialty Start Date End Date Jose Stack DO PCP - General 12/24/03 09/17/08 [address] [place] [address] documented as of this encounter
--- OUTSIDE RECORDS SUMMARY | 2022-02-06 10:30 | XMS_ITS | Encounter Summary ---
:1965 Author Organization [facility] Address [address], [place] [address] Care Team Providers Name Role Phone Jose Colin DO Primary Care Provider [phone] Reason for Visit Reason Onset Date Comments Same Day/Next Day Appt. 04/30/2007 Same Day Appt Encounter Details Date Type Department Care Team Description 04/30/2007 Telephone [facility] [place] Same Day/Ne Appt. Medicine Jose Allan DO (Same Day Appt 205 [facility]. [address] 04/30/07) [place] [address] [place], [place] [phone] [address] Social History Tobacco Use Types Packs/Day Years Used Date Smoking Tobacco: Never Alcohol Use Standard Drinks/Week Comments Yes 0 (1 standard drink = 0.6 oz pure alcoho l) rarely Sex Assigned at Date Recorded Not on file documented as of this encounter Nursing Notes Hanna Shin - 04/30/2007 1:21 PM CST Pt sched OMER RECORDS DIVISION SUPERVISOR Cristhian Romo - 04/30/2007 10:37 AM CST Patient requesting appointment for: Today 04/30/07 Symptoms: Pt stated needs a f/u as soon as possible per her surgeon to make sure that she doesnt have any blood clots. She would like to see someone today. Please call her at phone [phone] Cristhian Romo OMER RECORDS DIVISION SUPERVISOR documented in this encounter Plan of Treatment Not on filedocumented as of this encounter Visit Diagnoses Not on filedocumented in this encounter Care Teams Oil And Gas Drafter Relationship Specialty Start Date End Date Jose Colin DO PCP - General 12/24/03 09/17/08 [address] [place] [address] documented as of this encounter
--- OUTSIDE RECORDS SUMMARY | 2022-02-06 10:30 | XMS_ITS | Encounter Summary ---
:1965 Author Organization [facility] Address [address] [address] Care Team Providers Name Role Phone DungJose gonzalez Primary Care Provider [phone] Reason for Visit Reason Onset Date Comments Bleeding Nos 11/14/2005 Encounter Details Date Type Department Care Team Description 11/14/2005 Telephone [facility] Obstetrics and Yun Flynn MD Bleeding Nos Gynecology [address] [place] [address] Social History Tobacco Use Types [...] on filedocumented in this encounter Care Teams Patient Care Representative Relationship Specialty Start Date End Date Jose Colin DO PCP - General 12/24/03 09/17/08 [address] [place] [address] documented as of this encounter
--- OUTSIDE RECORDS SUMMARY | 2022-02-06 10:30 | XMS_ITS | Encounter Summary ---
:1965 Author Organization [facility] Address [address] [place] [address] Care Team Providers Name Role Phone Jose Colin DO Primary Care Provider [phone] Encounter Details Date Type Department Care Team Description 11/20/2005 Correspondence None Unknown, [facility]SENT [facility] RELEASE [address] [place], [place] [address] (Wo rk) Social History Tobacco Use Types [...] on filedocumented in this encounter Care Teams Crystallography Teacher Relationship Specialty Start Date End Date Jose Colin DO PCP - General 12/24/03 09/17/[address] [place] [address] documented as of this encounter
--- OUTSIDE RECORDS SUMMARY | 2022-02-06 10:30 | XMS_ITS | Encounter Summary ---
:1965 Author Organization [facility] Address [address] [place] [address] Care Team Providers Name Role Phone Jose Stack DO Primary Care Provider [phone] Reason for Visit Reason Onset Date Comments RESULTS, BLOOD TEST, NOS 02/16/2006 Encounter Details Date Type Department Care Team Description 02/16/2006 Telephone [facility] Internal [place], RESULTS, BL OOD TEST, Medicine Jose Allan DO NOS 205 [facility] [address] [place] [address] [place], [place] [phone] Social History Tobacco Use Types Packs/Day [...] on filedocumented in this encounter Care Teams Road Machine Operator Relationship Specialty Start Date End Date Jose Stack DO PCP - General 12/24/03 09/17/08 [address] [place] [address] documented as of this encounter
--- OUTSIDE RECORDS SUMMARY | 2022-02-06 10:30 | XMS_ITS | Encounter Summary ---
:1965 Author Organization [facility] Address [address] [place] [address] Care Team Providers Name Role Phone Jose Colin DO Primary Care Provider [phone] Reason for Visit Reason Comments EXAM,PRE-OP @ [facility] 04/15[facility] Tobi lehman S1 joint Fusion Encounter Details Date Type Department Care Team Description 04/10/2007 Office Visit [facility] Dusty Flores Preoperati ve Clement Huang MD Examination (Primary 205 [facility] Dx) [place] [address] PRACTICE [phone] [place] [address] Social History Tobacco Use Types Packs/Day [...] 4:50 PM CDT Megan Choi, medical record [id number], is a 42 yr year old female who is here for presurgical assessment. She is scheduled for surgery at [facility] on 04/15/[address] Kirkland. HPI: Low [...] GHP QTc 430 ms MUSE [facility] P [place] 44 degrees MUSE GHP R [place] -18 degrees MUSE GHP T [place] 43 degrees MUSE GHP URL Link MUSE [...] e Number MUSE [facility] [address] [place] [address] MUSE [facility] [address] [place] [address] HEMOGRAM/PLTS (04/10/2007 4:01 PM CDT) P athologist Signature WBC 10.0 4.0 - 11.0 [facility] k/ul RBC 4.46 4.0 - 5.2 [facility] M/ul Hemoglobin 13.7 12.0 - 16.0 [facility] g/dl HCT 40.1 36.0 - 46.0 [facility] % MCV 90.0 80 - 100 fl [facility] MCH 30.8 26 - 34 pg [facility] MCHC 34.2 32 - 36 % [facility] RDW 12.6 11.5 - 14.5 [facility] % Platelets 244 150 - 450 [facility] k/ul Specimen Anatomical Collection Method Collection Time Receive d Time (Source) Location / / Volume Laterality 04/10/2007 4:01 PM 7 4:02 CDT PM CDT Dusty Flores MD LAB_1 Performing Organization Address City/State/[facility] Code Phon e Number [facility] [phone] [facility] [address] [phone] documented in this encounter Visit Diagnoses Diagnosis Preoperative examination - Primary Preoperative examination, unspecified documented in this encounter Care Teams Vector Control Specialist Relationship Specialty Start Date End Date Jose Colin DO PCP - General 12/24/03 09/17/08 [address] [place] [address] documented as of this encounter
--- OUTSIDE RECORDS SUMMARY | 2022-02-06 10:30 | XMS_ITS | Encounter Summary ---
:1965 Author Organization [facility] Address [address] [place] [address] Care Team Providers Name Role Phone Jose Colin DO Primary Care Provider [phone] Reason for Visit Reason Onset Date Comments QUESTIONS, GENERAL 12/15/2005 Encounter Details Date Type Department Care Team Description 12/15/2005 Telephone [email or web address] Allan DO [address] [place], [place] [address] [place], [place] [phone] [address] Social History Tobacco Use Types Packs/Day [...] on filedocumented in this encounter Care Teams Acquisition Marketing Coordinator Relationship Specialty Start Date End Date Jose Colin DO PCP - General 12/24/03 09/17/08 [address] [place] [address] documented as of this encounter
--- OUTSIDE RECORDS SUMMARY | 2022-02-06 10:30 | XMS_ITS | Encounter Summary ---
:1965 Author Organization [facility] Address [address], [place] [address] Care Team Providers Name Role Phone Dixie Jose Jerrell BOOGIE Primary Care Provider Encounter Details Date [...] 11/07/2005 20:32:53 Transcribed: 11/07/2005 22:32:42 Doc #: [id number] cc: Yun Flynn MD, Attending Physician Jose [...] 11/07/2005 OUTPATIENT OPERATIVE REPORT CONFIDENTIAL MEDICAL RECORD [address] [address] Page 1 Patient: PADMINI CHOI Location: [facility] HPN: [id number] Date of : 1965 Age: 40Y Visit Date: 11/07/2005 OUTPATIENT OPERATIVE REPORT documented in this encounter Miscellaneous Notes OR Nursing - Emmie Burch - 11/07/2005 9:44 AM CDT [facility] Progress Note Patient Name: Padmini [...] Results SURGICAL PATH (11/07/2005 12:00 AM CDT) [facility] Method Time Signature 9911 (NOTE) REGIONS [...] Signed Out By ? Gudelia Jaffe MD ([id number]) Procedures/Addenda Clinical History Excessive bleeding Gross Description [...] Microscopic examination is performed on six slides. [place]11/08/2005 Gudelia Jaffe MD ([id number]) Specimen (Source) Anatomical Location Collection Method / Collectio n Time Received Time / Laterality Volume 11/07/2005 11/07/2005 Yun Flynn MD LAB_1 Performing Organization Address City/State/ZIP Code Phon e Number [address] [address] [place], [place] [phone] documented in this encounter Visit Diagnoses Not [...] Sun11/07/05 documented in this encounter Care Teams Senior Media Director Relationship Specialty Start Date End Date Jose Colin DO PCP - General 12/24/03 09/17/08 [address] [place] [address] documented as of this encounter
--- OUTSIDE RECORDS SUMMARY | 2022-02-06 10:30 | XMS_ITS | Encounter Summary ---
:1965 Author Organization [facility] Address [address] [place] [address] Care Team Providers Name Role Phone Jose Stack DO Primary Care Provider Reason for Visit Reason Onset Date Comments Refill 03/28/2007 Encounter Details Date Type Department Care Team Description 03/28/2007 Refill [facility] Jose Stack, Refill [address] [facility] [address] [place] [address] [place], [place] [phone] (Wo rk) Social History Tobacco Use [...] reflux documented in this encounter Care Teams [facility] Administrator Relationship Specialty Start Date End Date Jose Stack DO PCP - General 12/24/03 09/17/08 [address] [place] [address] documented as of this encounter
--- OUTSIDE RECORDS SUMMARY | 2022-02-06 10:30 | XMS_ITS | Encounter Summary ---
:1965 Author Organization [facility] Address [address] [place] [address] Care Team Providers Name Role Phone MoJose medina Jerrell BOOGIE Primary Care Provider [phone] Encounter Details Date Type Department Care Team Description 04/15/2007 - Hospital Encounter RH C91 Zachary Kirkland MD 04/19/[address] [place] [address] [address] [place] [address] [place], [place] [phone] [id number] Social History Tobacco Use Types Packs/Day Years Used Date Smoking Tobacco: Never Alcohol Use Standard Drinks/Week Comments Yes 0 (1 standard drink = 0.6 oz pure alcoho l) rarely Sex Assigned at Date Recorded Not on file documented as of this encounter Last Filed Vital Signs Vital Sign Reading Time Taken Comments Blood Pressure 105/50 04/19/2007 7:15 AM PROTECTIVE CLOTHING ISSUER Pulse 92 04/19/2007 7:15 AM PROTECTIVE CLOTHING ISSUER Temperature 37.2 ??C (98.9 ??F) 04/19/2007 7:15 AM PROTECTIVE CLOTHING ISSUER Respiratory Rate 16 04/19/2007 7:15 AM PROTECTIVE CLOTHING ISSUER Oxygen Saturation 96% 04/19/2007 7:15 AM PROTECTIVE CLOTHING ISSUER Inhaled Oxygen Concentration - - Weight 89.4 kg (197 lb) 04/15/2007 6:07 AM PROTECTIVE CLOTHING ISSUER Height 160 cm (5' 3) 04/15/2007 6:07 AM PROTECTIVE CLOTHING ISSUER Body Mass Index 34.9 04/15/2007 6:07 AM PROTECTIVE CLOTHING ISSUER documented in this encounter Discharge Summaries Zachary Kirkland - 05/15/2007 9:55 AM PROTECTIVE CLOTHING ISSUER ADMIT DATE: 04/15/2007 DISCHARGE DATE: 04/19/2007 FINAL [...] aspirin for anticoagulation prophylaxis. Zachary Kirkland MD [facility] Dictated: 05/15/2007 09:55:58 Transcribed: 05/16/2007 10:31:51 Doc #: [id number] cc:Zachary Kirkland MD, Referring Physician Jose Colin DO, Primary Physician 1 Page 1 Patient Name: MEGAN WONG DISCHARGE SUMMARY CONFIDENTIAL MEDICAL RECORD [address] [address] Page 1 Patient: MEGAN WONG Location: HPN: [id number] Admit Date: 04/15/2007 Date of : 1965 Discharge Date: 04/19/2007 Age: 42Y DISCHARGE SUMMARY ECTIVE CLOTHING ISSUER documented in this encounter Discharge Instructions Discharge InstructionsAmanda Lawrence - 04/19/2007 6:43 PM PROTECTIVE CLOTHING ISSUER ` Discharge Instructions for: Megan Wong Thank you for choosing [facility] as your hospital. Please read the following instructions carefully. The staff will go over this information with you and answer your questions. General Information Allergies: Erythromycin Immunization: Most Recent Immunizations Name Date(s) Administered * Td, Preservative Free 06/16/2005 Phone number: [phone] (home) [phone] (work) Discharging physician: RICHARD Discharge date: 04/19/07 [...] the anticoagulation order. Contact information (name/clinic/phone number): [phone] When to Resume Normal Activities: Order Comments: [...] been sent to the following clinic:{[facility]:[id number]} Home Care Instructions Patient Teaching Handouts INCISION [...] and/or chills Community Resources NONE Contact Information [address] [phone] For questions about your discharge instructions call the nursing unit : 9E Emergency & Urgently Needed Care: For emergencies call 911 and/or get medical help right away. If you are a [employer] member and have medical needs after clinic hours you may call the CareLine at [phone] or . Smoking and second-hand smoke exposure: Smoking damages blood vessels, reduces the oxygen in your blood and makes your heart beat too fast.If you smoke you should quit. Everyone should avoid second- hand smoke. If you would like further assistance after your discharge, please contact [phone] or visit [email or web address] and [facility] [employer] can offer further information and assistance. You will receive a patient satisfaction survey either at the time of discharge or by mail in about two weeks. We want to hear about your stay at [facility]. Please help us improve by telling us about your experience . When leaving your room at discharge, please stop at the nursing unit desk to check out. 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 Maria E Galindo RN 04/19/2007 2:[address] CLOTHING ISSUER [address] Gilliland - 04/19/2007 1:56 AM CST [facility] Progress Note (Nursing) Patient Name: Megan [...] movement Lane Ballesteros, ---End of Report --- ECTIVE CLOTHING ISSUER Patti Lynch - 04/18/2007 10:57 PM CST [facility] Progress Note (Nursing) Patient Name: Megan [...] Patti Bahena RN ---End of Report --- ECTIVE CLOTHING ISSUER Jessica Romero - 04/18/2007 4:13 PM CST [facility] PT Progress Note Patient Name: Megan [...] Rosalia Sotelo - 04/18/2007 2:03 PM CST [facility] Progress Note (Nursing) Patient Name: Megan [...] Rosalia Schafer LPN ---End of Report --- ECTIVE CLOTHING ISSUER Sloane Harvey - 04/18/2007 2:03 PM CST PT HAS BEEN ASSESSED,AGREE WITH NOTE AND PLAN OF CARE. ECTIVE CLOTHING ISSUER Jessica Romero - 04/18/2007 12:57 PM CST [facility] PT Progress Note Patient Name: Megan [...] stairs upon d/c initially. Jessica Romero PT ECTIVE CLOTHING ISSUER Rosina Morgan - 04/18/2007 11:44 AM CST [facility] Progress Note Patient Name: Megan [...] minutes MIGUEL Holcomb/Marcos (pager) OT Dept #: [phone] - OT Weekend Pager #: [phone] - [facility] Main #: [phone] ECTIVE CLOTHING ISSUER Irene Mascorro - 04/18/2007 9:15 AM CST [facility] Progress Note (MD) Patient Name: Megan Wong Date of : 1965 Date of service: 04/18/07 Diagnosis: Sacroiliac fusion, fever, abdominal pain, prior lumbar fusion Admit Date/Time: 04/15/2007 5:32 AM Attending Prov: Zachary Kirkland Patient Service: Orthopedics Subjective: Patient feeling much better. RESTORATION SILVERSMITH stopped yesterday. Ambulating. Still has LLQ pain [...] 9:22 AM --- End of Report --- ECTIVE CLOTHING ISSUER Hannah Borrego - 04/18/2007 2:36 AM CST [facility] Progress Note (Nursing) Patient Name: Megan [...] Taniya Hanley - 04/17/2007 9:31 PM CST [facility] Progress Note (Nursing) Patient Name: Megan [...] fax to [facility]/ care coordinated with [facility] on duty. Refused flu vaccine and MOM ordered. Afebrile the whole shift. With pending blood cultures x 2 sites today and cxray results..IS at max volume when able. Plan: Monitor for comfort Continue cares Taniya Brewster RN ---End of Report --- ECTIVE CLOTHING ISSUER Zachary Kirkland - 04/17/2007 6:43 PM CST Post op day two. Alert, CMS intact, Reasonable comfort Progressing in PT No complication Zachary Kirkland MD ECTIVE CLOTHING ISSUER Sena Zamarripa - 04/17/2007 3:27 PM CST [...] bowel sounds present. No tenderness and distension. HUMAN SERVICES ASSISTANT Alert and oriented. Extremeties: No pitting edema, [...] 1 Tab Oral TID ??? HYDROmorphone (DILAUDID) RESTORATION SILVERSMITH 10 mg in NS 50 mL IV [...] fusion 4) Post-op pain control - dilaudid RESTORATION SILVERSMITH To continue IVF. Sena Zamarripa MD 04/17/2007, 3:32 PM [phone] Date of Service: 04/17/2007 Report completed by: Sena Zamarripa MD ([facility] medicine) at 3:27 PM on 04/17/2007 ECTIVE CLOTHING ISSUER Jessica Romero - 04/17/2007 2:55 PM CST [facility] PT Progress Note Patient Name: Megan [...] bid in dept tomorrow. Jessica Romero, PT ECTIVE CLOTHING ISSUER Iván Shin - 04/17/2007 11:56 AM CST [facility] Progress Note (Nursing) Patient Name: Megan [...] Iván Shin RN ---End of Report --- ECTIVE CLOTHING ISSUER Kia Infante - 04/17/2007 11:39 AM CST [facility] Care Management Concrete Block Molder Initial Assessment Name: Megan Wong Admission Date/Time: 04/15/2007 5:32 AM Attending MD: Zachary Kirkland DATA Megan Wong was referred to this Concrete Block Molder for discharge planning. Chart reviewed, discussed with interdisciplinary team, as well as with patient and family. Megan Wong was admitted to for a L SI fusion Insurance: Payor: [employer] S[employer] [id number] Plan: [employer]URED Product Type: *No [...] with her and two dtrs in a [facility] in [place]. There are 3 steps with a railing [...] completed by Kia Infante RN, Pager Number [phone] Christy Pepper - 04/17/2007 1:31 AM CST [facility] Progress Note (Nursing) Patient Name: Megan [...] Sandra Cabrera - 04/16/2007 9:35 PM CST [facility] Progress Note (Nursing) Patient Name: Megan [...] 2500 cc of urine output via emery,dialudid RESTORATION SILVERSMITH discontinued and pt started on oral meds, notified regarding pt status and request for oycontin,pt bathed and repostitioned. Plan: Continue to monitor, turn Q2 hours, reassess need for emery in am, encourage IS. Sandra Blackmon RN ---End of Report --- ECTIVE CLOTHING ISSUER Irene Mascorro - 04/16/2007 6:00 PM CST [facility] Progress Note (MD) Patient Name: Megan [...] pyelonephritis. Incision pain okay, but on dilaudid RESTORATION SILVERSMITH. Occasionally desats due to sleepiness, but sats [...] 1 Tab Oral TID ??? HYDROmorphone (DILAUDID) RESTORATION SILVERSMITH 10 mg in NS 50 mL IV [...] NS 7) Post-op pain control - dilaudid RESTORATION SILVERSMITH Total time for chart review, exam and interview, following up on labs and ultimately reviewing AXR 35 minutes, coordination of care > 50%. Report Completed by: Irene Mascorro MD --- End of Report --- ECTIVE CLOTHING ISSUER Leanna French - 04/16/2007 2:14 PM CST [facility] Progress Note (Nursing) Patient Name: Megan Wong Date of : 1965 Identify/Problem(s): GENERAL STATU. Desired Outcome(s): Will be stabilized. Evaluation: Pt oriented but quite sleepy. On machine rope maker dilaudid with adequate pain control. C/o nausea, received prn zofran with relief. Incision to lower back is intact with some shadowing. Cms to LE intact. Vss exceptfor temp of 99.5 and 100.9 at 0800 and noon respectively. Lungs clear, encouraged IS usage. MD updated. Plan: Cont to monitor, assess and medicate as indicated. Leanna Perales Mba, RN ---End of Report --- ECTIVE CLOTHING ISSUER Rosina Morgan - 04/16/2007 1:02 PM CST [facility] Occupational Therapy The patient is scheduled to be seen by OT. MIGUEL Holcomb/Marcos (pager) OT Dept #: [phone] - OT Weekend Pager #: [phone] - [facility] Main #: [phone] Gavin Ortiz - 04/16/2007 10:25 AM CST [facility] Clinical Pharmacy Medication Reconciliation Note Patient Name: Megan Wong Date of : 1965 Medications Reviewed and Reconciled: Any medication adjustments made from patient's medication history regimen are appropriate for current hospitalization and medical condition. PHARMACIST NAME: Gavin Sanchez Phone/Pager #: [phone] -- End of Report -- Huseyin Dey - 04/16/2007 7:59 AM CST [facility] Progress Note (Nursing) Patient Name: Megan Wong Date of : 1965 Identify/Problem(s): pain Desired Outcome(s): Will have maximum Evaluation: Pt neuro intact, lower back incision d/i with small shadow, takes I.S to 1250, got 50mg of atarax for muscle pain with relief, repositioned often on this shift. BP improved. Used 4.73 mg of dilaudid RESTORATION SILVERSMITH-- new syringe placed at 0800. Presently lying down in bed without problem. Plan: Will continue to monitor Huseyin Miguel RN ---End of Report --- Zachary Porter - 04/16/2007 7:53 AM CST Post op day one Alert, CMS intact Reasonable comfort. No complication evident P: per protocol PT Zachary Kirkland MD ECTIVE CLOTHING ISSUER Sandra Blackmon - 04/15/2007 11:57 PM CST [facility] Progress Note (Nursing) Patient Name: Megan Wong Date of : 1965 Identify/Problem(s): Comfort Desired Outcome(s): Will remain comfortable Evaluation: Vitals stable with exception of low BP, BP at 1600 103/61, recheck at 1999 102/57, LS clear, BS hypo, ate 50% of clear liquid dinner, denies N/V, SOB, CP, CMS + to BLE , moderate amount of shadowing noted, pain controlled with dilaudid RESTORATION SILVERSMITH (14.9 mg of dilauid used) and atarax, emery patent with good amount of output, plexipulses on BLE. Plan: Continue to monitor. Sandra Blackmon RN ---End of Report --- Iván Pinto - 04/15/2007 1:30 PM CST [facility] Nursing Post-Op Note Patient Name: Megan Wong Date of : 1965 Admission Date/Time: 04/15/2007 5:32 AM Returned to: 9E on (date) 04/15/07 at (time) 1230 from [facility] Transported by: Litter/cart Medical devices present on return from O.R.: IV General condition on return from O.R.: fair Report Completed by: Iván Shin RN ---End of Report--- ECTIVE CLOTHING ISSUER Zachary Kirkland - 04/15/2007 8:03 AM CST Post op note Left SI fusion for sacralgia No complications EBL 100 cc Plan per orders, RESTORATION SILVERSMITH, PT home in 2-3 days Zachary Kirkland MD ECTIVE CLOTHING ISSUER documented in this encounter Procedure Notes Zachary [...] was prepped and draped prone on a 4-hand finisher. A longitudinal incision was made under x-ray [...] touch weight-bearing for 6 weeks, Lovenox and RESTORATION SILVERSMITH Dilaudid, home in 2-3 days. Zachary Kirkland MD mjb Dictated: 04/15/2007 11:00:01 Transcribed: 04/15/2007 11:53:11 Doc #: [id number] cc:Zachary Kirkland MD, Referring Physician Jose Colin, , Primary Physician DO NOT SIGN UNLESS PRESENT FOR PROCEDURE I attest that I was present for and participated in the ma portions of this procedure(s) in compliance with the Health Care Financing Administration Teaching Physician Guidelines. Signed Date [facility] Staff Physician 1 Page 2 Patient Name: MEGAN WONG OPERATIVE REPORT CONFIDENTIAL MEDICAL RECORD [address] [address] Page 1 Patient: MEGAN WONG Location: [place] HPN: [id number] Admit Date: 04/15/2007 Date of : 1965 Discharge Date: Age: 42Y OPERATIVE REPORT ECTIVE CLOTHING ISSUER documented in this encounter Plan of Treatment Not on filedocumented as of this encounter Procedures Procedure Name Priority Date/Time Associated Comments Diagnosis COMPLETE BLOOD Routine 04/18/2007 6:25 AM Results for this COUNT-NO DIFF PROTECTIVE CLOTHING ISSUER procedure are in the results section. BLOOD CULTURE SITE 2 Routine 04/17/2007 6:15 PM R esults for this PROTECTIVE CLOTHING ISSUER procedure are i n the results section. BLOOD CULTURE Routine 04/17/2007 5:50 PM Results for this PROTECTIVE CLOTHING ISSUER procedure are i n the results section. CHEST PA/LATERAL Routine 04/17/2007 3:51 PM Resul ts for this PROTECTIVE CLOTHING ISSUER procedure are i n the results section. BASIC METABOLIC PANEL Routine 04/17/2007 7:10 AM Results for this PROTECTIVE CLOTHING ISSUER procedure are i n the results section. COMPLETE BLOOD Routine 04/17/2007 7:10 AM Results for this COUNT-NO DIFF PROTECTIVE CLOTHING ISSUER procedure are in the results section. URINE CULTURE Routine 04/16/2007 8:45 PM Results for this PROTECTIVE CLOTHING ISSUER procedure are i n the results section. UA CONDITIONAL UC Routine 04/16/2007 8:45 PM Resu lts for this PROTECTIVE CLOTHING ISSUER procedure are i n the results section. BLOOD CULTURE SITE 2 Routine 04/16/2007 8:00 PM R esults for this PROTECTIVE CLOTHING ISSUER procedure are i n the results section. GOLD HOLD TUBE (OR Routine 04/16/2007 8:00 PM Res ults for this RED/LOPEZ) PROTECTIVE CLOTHING ISSUER procedure are i n the results section. BLOOD CULTURE Routine 04/16/2007 8:00 PM Results for this PROTECTIVE CLOTHING ISSUER procedure are i n the results section. BASIC METABOLIC PANEL Routine 04/16/2007 8:00 PM Results for this PROTECTIVE CLOTHING ISSUER procedure are i n the results section. BILIRUBIN, TOTAL & Routine 04/16/2007 8:00 PM Res ults for this DIRECT PROTECTIVE CLOTHING ISSUER procedure are i n the results section. COMPLETE BLOOD Routine 04/16/2007 8:00 PM Results for this COUNT-NO DIFF PROTECTIVE CLOTHING ISSUER procedure are in the results section. ALT (SGPT) Routine 04/16/2007 8:00 PM Results f or this PROTECTIVE CLOTHING ISSUER procedure are i n the results section. AST Routine 04/16/2007 8:00 PM Results f or this PROTECTIVE CLOTHING ISSUER procedure are i n the results section. ALKALINE PHOSPHATASE, Routine 04/16/2007 8:00 PM Results for this TOTAL PROTECTIVE CLOTHING ISSUER procedure are i n the results section. CT PELVIS WITHOUT IV Routine 04/16/2007 10:40 Res ults for this CONTRAST AM PROTECTIVE CLOTHING ISSUER procedure are i n the results section. AP PELVIS Routine 04/15/2007 10:50 Results for this AM PROTECTIVE CLOTHING ISSUER procedure are i n the results section. FUSION SACRAL ILIAC AM Admit 04/15/2007 7:50 AM SI PAIN PROTECTIVE CLOTHING ISSUER Case Notes PROC: LEFT SI FUSION ABO RH & ANTIBODY SCREEN STAT 04/15/2007 6:50 AM PROTECTIVE CLOTHING ISSUER Results for this procedure (TYPE & SCREEN) are in the r esults section. documented in this encounter Results (ABNORMAL) HEMOGRAM/PLTS (04/18/2007 6:25 AM PROTECTIVE CLOTHING ISSUER) P athologist Signature WBC 10.3 4.0 - [...] Volume Laterality 04/18/2007 6:25 AM 7 6:36 PROTECTIVE CLOTHING ISSUER AM PROTECTIVE CLOTHING ISSUER Sena Zamarripa MD LAB_1 Performing Organization Address City/State/ZIP Code Phon e Number [address] [address] [place], [place] [phone] BLOOD CULTURE SITE 2 (04/17/2007 6:15 PM PROTECTIVE CLOTHING ISSUER) Component Value Ref Test Analysis Performed At Patholo gist Range Method Time Signature Specimen Blood REGIONS Description VENIPUNCTURE Special Site 2 REGIONS Requests Venipuncture Culture No Growth After REGIONS 6 Days Report Status Final 04/23/2007 REGIONS Specimen Anatomical Location Collection Method Collection Time Received Time (Source) / Laterality / Volume Blood specimen VENIPUNCTURE / 04/17/2007 6:15 04/17/20 07 8:14 (specimen) Unknown PM PROTECTIVE CLOTHING ISSUER PM PROTECTIVE CLOTHING ISSUER Sena Zamarripa MD LAB_1 Performing Organization Address [facility]/ZIP [facility] Phon e Number [address] [address] [place], [place] [phone] BLOOD CULTURE SITE 1 (04/17/2007 5:50 PM PROTECTIVE CLOTHING ISSUER) Patholo gist Method Time Signature Specimen Blood AT IV REGIONS Description INSERTION Special Site 1 At IV REGIONS Requests Insertion Culture No Growth REGIONS After 6 Days Report Status Final REGIONS 04/23/2007 Specimen Anatomical Collection Method Collection Time Receive d Time (Source) Location / / Volume Laterality Blood specimen 04/17/2007 5:50 PM 007 6:25 (specimen) (At PROTECTIVE CLOTHING ISSUER PM PROTECTIVE CLOTHING ISSUER IV Insertion) Sena Zamarripa MD LAB_1 Performing Organization Address City/[facility]/ZIP [facility] Phon e Number [address] [address] [place], [place] [phone] CHEST PA/LATERAL (04/17/2007 3:51 PM PROTECTIVE CLOTHING ISSUER) Anatomical Region Laterality Modality Other Specimen (Source) Anatomical Collection Method Collection Time Re ceived Time Location / / Volume Laterality 04/17/2007 3:51 PM PROTECTIVE CLOTHING ISSUER Narrative 04/19/2007 1:34 PM PROTECTIVE CLOTHING ISSUER pneumonia: FEVER . CHEST 2 VIEWS 04/17/07 INDICATION: ??Fever and pneumonia. COMPARISON: ??None. FINDINGS: ??No infiltrates. ??Heart norm al size allowing for technique. Post-op change lower cervical spine. Sena Zamarripa MD RAD GENERAL DIAGNOSTIC/RH (ABNORMAL) BASIC METABOLIC PANEL (04/17/2007 7:10 AM PROTECTIVE CLOTHING ISSUER) athologist Signature BUN 5 (L) 10 - [...] Volume Laterality 04/17/2007 7:10 AM 7 7:30 PROTECTIVE CLOTHING ISSUER AM PROTECTIVE CLOTHING ISSUER Irene Mascorro MD LAB_1 Performing Organization Address [facility] Phon e Number [address] [address] [place] [phone] (ABNORMAL) HEMOGRAM/PLTS (04/17/2007 7:10 AM PROTECTIVE CLOTHING ISSUER) athologist Signature WBC 11.0 4.0 - 11.0 [...] Volume Laterality 04/17/2007 7:10 AM 7 7:30 PROTECTIVE CLOTHING ISSUER AM PROTECTIVE CLOTHING ISSUER Irene Mascorro MD LAB_1 Performing Organization Address [facility] Phon e Number [address] [address] [place] [phone] URINE CULTURE (04/16/2007 8:45 PM PROTECTIVE CLOTHING ISSUER) [facility] Method Time Signature Specimen Urine REGIONS Description Special Unspecified REGIONS Requests Culture No Growth After REGIONS 2 Days Report Status Final REGIONS 04/18/2007 Specimen Anatomical Collection Method Collection Time Receive d Time (Source) Location / / Volume Laterality 04/16/2007 8:45 PM 200 7 9:17 PROTECTIVE CLOTHING ISSUER PM PROTECTIVE CLOTHING ISSUER Zachary Kirkland MD LAB_1 Performing Organization Address [facility] Phon e Number [address] [address] [place] [phone] (ABNORMAL) UA CONDITIONAL UC (04/16/2007 8:45 PM PROTECTIVE CLOTHING ISSUER) [facility] Method Time Signature Urine Color None REGIONS Urine Clarity Clear REGIONS Specific 1.001 (L) 1.005 - REGIONS [place],Ur 1.03 pH, Urine 5.5 4.5 - 8.0 [...] specimen 04/16/2007 8:45 PM 007 9:00 (specimen) PROTECTIVE CLOTHING ISSUER PM PROTECTIVE CLOTHING ISSUER Irene Mascorro MD LAB_1 Performing Organization Address [facility] Phon e Number [address] [address] [place], [place] [phone] GOLD HOLD TUBE (OR RED/LOPEZ) (04/16/2007 8:00 PM PROTECTIVE CLOTHING ISSUER) [facility] Method Time Signature Gold Hold Held in REGIONS Tube Chemistry sample rack for 7 days Specimen Anatomical Collection Method Collection Time Receive d Time (Source) Location / / Volume Laterality 04/16/2007 8:00 PM 7 8:21 PROTECTIVE CLOTHING ISSUER PM PROTECTIVE CLOTHING ISSUER Irene Mascorro MD LAB_1 Performing Organization Address [facility] Phon e Number [address] [address] [place] [phone] BILIRUBIN, TOTAL & DIRECT (04/16/2007 8:00 PM PROTECTIVE CLOTHING ISSUER) P athologist Signature Bilirubin, 0.8 0.2 - 1.2 REGIONS Total mg/dl Bilirubin, 0.2 0.1 - 0.4 REGIONS Direct mg/dl Specimen Anatomical Collection Method Collection Time Receive d Time (Source) Location / / Volume Laterality 04/16/2007 8:00 PM 7 8:21 PROTECTIVE CLOTHING ISSUER PM PROTECTIVE CLOTHING ISSUER Irene Mascorro MD LAB_1 Performing Organization Address [facility]/ZIP [facility] Phon e Number [address] [address] [place] [phone] ALKALINE PHOSPHATASE, TOTAL (04/16/2007 8:00 PM PROTECTIVE CLOTHING ISSUER) athologist Signature Alkaline 77 34 - 104 REGIONS Phosphatase U/L Specimen Anatomical Collection Method Collection Time Receive d Time (Source) Location / / Volume Laterality 04/16/2007 8:00 PM 7 8:21 PROTECTIVE CLOTHING ISSUER PM PROTECTIVE CLOTHING ISSUER Irene Mascorro MD LAB_1 Performing Organization Address City/[facility]/ZIP [facility] Phon e Number [address] [address] [place] [phone] ALT (SGPT) (04/16/2007 8:00 PM PROTECTIVE CLOTHING ISSUER) P athologist Signature ALT (SGPT) 12 0 - 55 U/L REGIONS Specimen Anatomical Collection Method Collection Time Receive d Time (Source) Location / / Volume Laterality 04/16/2007 8:00 PM 7 8:21 PROTECTIVE CLOTHING ISSUER PM PROTECTIVE CLOTHING ISSUER Irene Mascorro MD LAB_1 Performing Organization Address City/[facility]/ZIP [facility] Phon e Number [address] [address] [place] [phone] AST (04/16/2007 8:00 PM PROTECTIVE CLOTHING ISSUER) athologist Signature AST (SGOT) 21 <45 U/L REGIONS Specimen Anatomical Collection Method Collection Time Receive d Time (Source) Location / / Volume Laterality 04/16/2007 8:00 PM 7 8:21 PROTECTIVE CLOTHING ISSUER PM PROTECTIVE CLOTHING ISSUER Irene Mascorro MD LAB_1 Performing Organization Address [facility] Phon e Number [address] [address] [place], [place] [phone] (ABNORMAL) BASIC METABOLIC PANEL (04/16/2007 8:00 PM PROTECTIVE CLOTHING ISSUER) athologist Signature BUN 4 (L) 10 - [...] Volume Laterality 04/16/2007 8:00 PM 7 8:21 PROTECTIVE CLOTHING ISSUER PM PROTECTIVE CLOTHING ISSUER Irene Mascorro MD LAB_1 Performing Organization Address [facility] Phon e Number [address] [address] [place], [place] [phone] (ABNORMAL) HEMOGRAM/PLTS (04/16/2007 8:00 PM PROTECTIVE CLOTHING ISSUER) P athologist Signature WBC 10.8 4.0 - [...] Volume Laterality 04/16/2007 8:00 PM 7 8:21 PROTECTIVE CLOTHING ISSUER PM PROTECTIVE CLOTHING ISSUER Irene Mascorro MD LAB_1 Performing Organization Address [facility] Phon e Number [address] [address] [place], [place] [phone] BLOOD CULTURE SITE 2 (04/16/2007 8:00 PM PROTECTIVE CLOTHING ISSUER) Component Value Ref Test Analysis Performed At [facility] [place] Range Method Time Signature Specimen Blood REGIONS Description Special Venipuncture REGIONS Requests Culture No Growth After REGIONS 6 Days Report Status Final 04/22/2007 REGIONS Specimen Anatomical Location Collection Method Collection Time Received Time (Source) / Laterality / Volume Blood specimen VENIPUNCTURE / 04/16/2007 8:00 04/16/20 07 8:56 (specimen) Unknown PM PROTECTIVE CLOTHING ISSUER PM PROTECTIVE CLOTHING ISSUER Irene Mascorro MD LAB_1 Performing Organization Address [facility] Phon e Number [address] [address] [place], [place] [phone] BLOOD CULTURE SITE 1 (04/16/2007 8:00 PM PROTECTIVE CLOTHING ISSUER) Component Value Ref Test Analysis Performed At [facility] [place] Range Method Time Signature Specimen Blood REGIONS Description Special Venipuncture REGIONS Requests Culture No Growth After REGIONS 6 Days Report Status Final 04/22/2007 REGIONS Specimen Anatomical Location Collection Method Collection Time Received Time (Source) / Laterality / Volume Blood specimen VENIPUNCTURE / 04/16/2007 8:00 04/16/20 07 8:57 (specimen) Unknown PM PROTECTIVE CLOTHING ISSUER PM PROTECTIVE CLOTHING ISSUER Irene Mascorro MD LAB_1 Performing Organization Address City/State/ZIP Code Phon e Number [address] [address] [place], [place] [phone] CT PELVIS WITHOUT IV CONTRAST (04/16/2007 10:40 AM PROTECTIVE CLOTHING ISSUER) Anatomical Region Laterality Modality Other Specimen (Source) Anatomical Collection Method Collection Time Re ceived Time Location / / Volume Laterality 04/16/2007 10:40 AM PROTECTIVE CLOTHING ISSUER Impressions 04/19/2007 12:07 PM PROTECTIVE CLOTHING ISSUER IMPRESSION: Three Ray cages in the left sacroiliac j oint extra-articular recess. ??No evidence of loosening. ??Co mplete bony fusion is not yet appreciated. Narrative 04/19/2007 12:07 [address]IVE CLOTHING ISSUER ct sacrum, donna sacral joints from L4-acetabulum, [...] RAD CT/RH AP PELVIS (04/15/2007 10:50 AM PROTECTIVE CLOTHING ISSUER) Anatomical Region Laterality Modality Other Specimen (Source) Anatomical Collection Method Collection Time Re ceived Time Location / / Volume Laterality 04/15/2007 10:50 AM PROTECTIVE CLOTHING ISSUER Narrative 04/15/2007 10:50 AM PROTECTIVE CLOTHING ISSUER LEFT SI FUSION IN O.R.15 AT [id number] HRS. Zachary Kirkland MD RAD GENERAL DIAGNOSTIC/RH ABO Rh & Antibody Screen (Type & Screen) (04/15/2007 6:50 AM PROTECTIVE CLOTHING ISSUER) Patholo gist Method Time Signature Crossmatch 04/18/2007 REGIONS Expires ABO/RH(D) O POSITIVE REGIONS Antibody NEGATIVE REGIONS Screen Specimen Anatomical Collection Method Collection Time Receive d Time (Source) Location / / Volume Laterality 04/15/2007 6:50 AM 7 6:56 PROTECTIVE CLOTHING ISSUER AM PROTECTIVE CLOTHING ISSUER Zachary Kirkland MD LAB_1 Performing Organization Address City/State/ZIP Code Phon e Number [address] [address] [place], [place] [phone] documented in this encounter Visit Diagnoses Initial Assessments - Rosina Morgan - 04/17/2007 11:33 AM [facility] Evaluation Patient Name: [...] and safety the following equipment is recommended: Cloud Solutions Architect: patient has Standard shower chair without backrest: patient has Additional Information: The patient had a sacroiliac fusion and is TDWB on the left LE. The patient lives with her and daughters. She states they will be able to assist her at home. The patient was able to complete lower body dressing with a boat deckhand which she used previously at home. Will [...] body dressing. Patient's goals: Return home MIGUEL Holcomb/Mracos (pager) OT Dept #: [phone] - OT Weekend Pager #: [phone] - [facility] Main #: [phone] ECTIVE CLOTHING ISSUER Initial Assessments - Jessica Romero - 04/16/2007 2:07 PM CST [facility] Physical Therapy Evaluation Patient Name: Megan [...] minutes Jessica Romero PT Phone number is [phone] Pager: [phone] ECTIVE CLOTHING ISSUER Initial Assessments - Iván Shin - 04/15/2007 1:09 PM CST [facility] Med-Surg, ICU Initial Assessment Note Patient Name: Megan Wong Date of : 1965 General Information Demographics Admitted from: OR to 9E Reason for admission: SI Fusion [facility] admission date/time: 04/15/2007 5:32 AM Actual arrival [...] of age or older OR 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 [[facility] health problems include chronic pulmonary or cardiovascular [...] Pain Level:3, Duration: intermittent, Current treatment methods: Pharmacist Apprentice dilaudid, Method of expressing pain: Verbal, Desired [...] there Guardianship issues affecting care planning? No Spiritual/Episcopalian Is the nurse aware, at present, of any needs or issues for which support from the hospital grinder set up operator internal might be helpful to patient and/or family? (e.g. need or desire for spiritual support, difficulty coping, end of life issues, grief/loss, etc.) No. ([facility] makes daily rounds to all oriental orthodox patients.) Cultural On the Best Care/Best Experience [...] contributed to the completion of this document. ECTIVE CLOTHING ISSUER documented in this encounter Administered Medications Inactive Administered Medications - up to 3 most recent administrations Medication Order MAR Action Action Date Dose Rate Site bisacodyl (DULCOLAX) rectal Given 04/18/2007 9:00 AM PROTECTIVE CLOTHING ISSUER 10 mg suppository 10 mg 10 mg, Rectal, DAILY PRN, Constipation, Starting on Sun04/15/07 at 0800, Until Sun04/19/07 at 2053 calcium carb-vit D 500 mg-200 units (OSCAL Given 04/19 2:00 PM PROTECTIVE CLOTHING ISSUER 1 Tablet D) 1 Tab 1 Tablet, Oral, TID, First dose on Sun04/15/07 at 1400, Until Discontinued Given 04/19/2007 8:00 AM PROTECTIVE CLOTHING ISSUER 1 Tablet Given 04/18/2007 8:00 PM PROTECTIVE CLOTHING ISSUER 1 Tablet cefazolin (ANCEF) 1,000 mg in NS 50 mL IV Given 2006 12:00 AM PROTECTIVE CLOTHING ISSUER 1,000 mg Piggyback 1,000 mg (1 g), Intravenous, Administer over 30 Minutes, Q8H, First dose on Sun04/15/07 at 1600, For 2 doses, First dose given pre-opGive if not allergic to PCN or cephalosporins. Given 04/15/2007 4:00 PM PROTECTIVE CLOTHING ISSUER 1,000 mg citric acid/sodium citrate (BICITRA) oral Given 04/15/2007 6:42 AM PROTECTIVE CLOTHING ISSUER 30 mL solution 30 mL 30 mL, Oral, NOW, On Sun04/15/07 at 0642, For 1 dose D5W 0.45NS 20 KCl IV 1,000 mL Started 04/15/2007 9:49 PM PROTECTIVE CLOTHING ISSUER 1,000 mL 125 mL/hr 1,000 mL, Intravenous, at 125 mL/hr, CONTINUOUS, Starting on Sun04/15/07 at 0804 Started 04/15/2007 12:00 PM PROTECTIVE CLOTHING ISSUER 1,000 mL 125 mL/hr docusate (COLACE) capsule 100 mg Given 04/19/2007 8:00 AM PROTECTIVE CLOTHING ISSUER 100 mg 100 mg, Oral, BID, First dose on Sun04/15/07 at 2000, Until Discontinued Given 04/18/2007 8:00 PM PROTECTIVE CLOTHING ISSUER 100 mg Given 04/18/2007 8:00 AM PROTECTIVE CLOTHING ISSUER 100 mg enoxaparin (LOVENOX) injection 40 mg Given 04/19/2007 8:00 AM PROTECTIVE CLOTHING ISSUER 40 mg 40 mg, Subcutaneous, Q24H, First dose on Sun04/16/07 at 0800, Until Discontinued Given 04/18/2007 8:00 AM PROTECTIVE CLOTHING ISSUER 40 mg Given 04/17/2007 8:00 AM PROTECTIVE CLOTHING ISSUER 40 mg famotidine (PEPCID) IV 20 mg Given 04/15/2007 8:00 AM PROTECTIVE CLOTHING ISSUER 20 mg 20 mg, Intravenous, Q12H, First dose on Sun04/15/07 at 0800, Until Discontinued hydrocodone/acetaminophen (VICODIN) 5-500 Given 2006 5:18 PM PROTECTIVE CLOTHING ISSUER 2 Tablets MG 1-2 Tab 1-2 Tablet, Oral, Q4H PRN, Pain, Starting on Sun04/15/07 at 0800, Maximum Daily Acetaminophen dose for patients > 53 k g/day Maximum Daily Acetaminophen dose for patients < 53 k mg/kg/day This product contains 500 mg Acetaminophen per tablet. Given 04/19/2007 7:15 AM PROTECTIVE CLOTHING ISSUER 2 Tablets Given 04/18/2007 8:25 PM PROTECTIVE CLOTHING ISSUER 2 Tablets HYDROmorphone (DILAUDID) injection 0.1-0 .4 mg Given 04/15/2007 2:45 PM PROTECTIVE CLOTHING ISSUER 0.4 mg 0.1-0.4 mg, Intravenous, Q1-2H PRN, Pain, Starting on Sun04/15/07 at 0800, Until Sun04/19/07 at 2053 HYDROmorphone (DILAUDID) RESTORATION SILVERSMITH 10 mg in NS Started 04/15/2007 12 :23 PM PROTECTIVE CLOTHING ISSUER mL/hr 50 mL IV infusion* Intravenous, TITRATE, Starting on Sun04/15/07 at 0809, Until Sun04/19/07 at 0832 hydrOXYzine (ATARAX) tablet 25-50 mg Given 04/19/2007 5:17 PM PROTECTIVE CLOTHING ISSUER 50 mg 25-50 mg, Oral, Q4H PRN, Pain, Starting on Sun04/15/07 at 0800, Until Sun04/19/07 at 2053 Given 04/19/2007 7:15 AM PROTECTIVE CLOTHING ISSUER 50 mg Given 04/18/2007 8:25 PM PROTECTIVE CLOTHING ISSUER 50 mg lansoprazole (PREVACID) capsule 30 mg Given 04/19/2007 8:00 AM PROTECTIVE CLOTHING ISSUER 30 mg 30 mg, Oral, DAILY, First dose on Sun04/17/07 at 1528, Until Discontinued Given 04/18/2007 8:00 AM PROTECTIVE CLOTHING ISSUER 30 mg Given 04/17/2007 5:00 PM PROTECTIVE CLOTHING ISSUER 30 mg lidocaine/EPINEphrine 1-1:212123 %, Given 04/15/2007 9:00 AM PROTECTIVE CLOTHING ISSUER 60 mL bupivacaine/EPINEphrine 0.5-1:642585 % at 0 , INTRA-OP, Starting on Sun04/15/07 at 0607, Verify Route and Dose with Surgeon Prior to Administration LR injection 1,000 mL Given 04/15/2007 6:44 AM PROTECTIVE CLOTHING ISSUER 1,000 mL 1,000 mL, Intravenous, at 30 mL/hr, PACU, Starting on Sun04/15/07 at 0618, Continuous magnesium citrate oral solution 296 mL Given 04/18/2007 11:29 AM PROTECTIVE CLOTHING ISSUER 296 mL 296 mL (1 Bottle), Oral, ONCE, On Elda 04/18/07 at 1129, For 1 dose meperidine (DEMEROL) injection 12.5-50 m g Given 04/15/2007 11:50 AM PROTECTIVE CLOTHING ISSUER 25 mg 12.5-50 mg, Intravenous, PACU, Starting on Sun04/15/07 at 1045, Until Sun04/15/07 at 1246, Up to a total dose of no more than 2 mg/kg. Use in PACU only milk of magnesia oral suspension 30 mL Given 04/18/2007 9:00 AM PROTECTIVE CLOTHING ISSUER 30 mL 30 mL, Oral, ONCE PRN, Constipation, Starting on Sun04/17/07 at 2200, Until Sun04/19/07 at 2053, Give dose at 22:00 on post-op day #2 if no BM by 48 hours post-op milk of magnesia oral suspension 30 mL Given 04/18/2007 9:45 PM PROTECTIVE CLOTHING ISSUER 30 mL 30 mL, Oral, ONCE, On Elda 04/18/07 at 2126, For 1 dose MORphine injectable 5 mg Given 04/15/2007 12:12 PM PROTECTIVE CLOTHING ISSUER 5 mg 5 mg, Intravenous, PACU, Starting on Sun04/15/07 at 1150, Until Sun04/15/07 at 1246, May give in incremental doses up to a maximum of 0.15 mg/kg. Use in PACU only Given 04/15/2007 11:52 AM PROTECTIVE CLOTHING ISSUER 5 mg multivitamin (HEXAVITAMIN) 1 Tab Given 04/19/2007 8:00 AM PROTECTIVE CLOTHING ISSUER 1 Tablet 1 Tablet, Oral, DAILY, First dose on Sun04/16/07 at 0800 Given 04/18/2007 8:00 AM PROTECTIVE CLOTHING ISSUER 1 Tablet Given 04/17/2007 8:00 AM PROTECTIVE CLOTHING ISSUER 1 Tablet NS IV 1,000 mL Started 04/17/2007 3:05 AM PROTECTIVE CLOTHING ISSUER 1,000 mL 125 mL/hr 1,000 mL, Intravenous, at 125 mL/hr, CONTINUOUS, Starting on Sun04/16/07 at 1818 Started 04/16/2007 7:00 PM PROTECTIVE CLOTHING ISSUER 1,000 mL 125 mL/hr ondansetron (ZOFRAN) injection 4 mg Given 04/19/2007 2:00 AM PROTECTIVE CLOTHING ISSUER 4 mg 4 mg, Intravenous, Q6H PRN, Nausea, Starting on Sun04/15/07 at 0800 Given 04/16/2007 12:50 PM PROTECTIVE CLOTHING ISSUER 4 mg oxycodone (OXYCONTIN) tablet 20 mg Given 04/19/2007 8:00 AM PROTECTIVE CLOTHING ISSUER 20 mg 20 mg, Oral, BID, First dose on Sun04/16/07 at 2155, DO NOT crush or cut in half. Given 04/18/2007 9:45 PM PROTECTIVE CLOTHING ISSUER 20 mg Given 04/18/2007 8:00 AM PROTECTIVE CLOTHING ISSUER 20 mg phosphate enema (FLEET) enema 118 mL Given 04/19/2007 7:00 AM PROTECTIVE CLOTHING ISSUER 118 mL 118 mL (1 Enema), Rectal, DAILY PRN, Starting on Sun04/15/07 at 0800, Until Sun04/19/07 at 2053, Constipation propoxyphene/acetaminophen (DARVOCET-N Given 04/17/2007 12:00 PM PROTECTIVE CLOTHING ISSUER 1 Tablet 100) 100-650 MG 1 Tab 1 Tablet, Oral, Q4H PRN, Pain, Starting on Sun04/15/07 at 0800, Maximum Daily Acetaminophen dose for patients > 53 k g/day Maximum Daily Acetaminophen dose for patients < 53 k mg/kg/day This product contains 650 mg Acetaminophen per tablet. Given 04/17/2007 6:40 AM PROTECTIVE CLOTHING ISSUER 1 Tablet Given 04/17/2007 12:35 AM PROTECTIVE CLOTHING ISSUER 1 Tablet documented in this encounter Active and Recently Administered Medications Times are shown in PROTECTIVE CLOTHING ISSUER. Scheduled Medication Order 04/17/2007 04/18/2007 04/19/2007 calcium carb-vit D 500 mg-200 units (OSCAL D) 1 Tab (C ANCELED) 0800 (Given - Provider: Iván Shin)1400 (Due)2100 (Given - Provider: Taniya Brewster) 0800 (Given - Provider: Rosalia Schafer)1400 (Given - Provider: Rosalia Schafer)1999 (Given - Provider: Patti Lynch) 0800 (Given - Provider: Rosalia cShafer)1400 (Given - Provider: Rosalia Schafer) 1 Tab, [...] Provider: Iván Shin)2100 (Given - Provider: Taniya Breswter) 0800 (Given - Provider: Rosalia Schafer)2145 (Given [...] ued documented in this encounter Care Teams Low Altitude Air Defense Gunner Relationship Specialty Start Date End Date Jose Colin DO PCP - General 12/24/03 09/17/08 [address] [place] [address] documented as of this encounter
--- OUTSIDE RECORDS SUMMARY | 2022-02-06 10:30 | XMS_ITS | Encounter Summary ---
:1965 Author Organization [facility] Address [address] [address] Care Team Providers Name Role Phone Jose Colin DO Primary Care Provider [phone] Reason for Visit Reason Onset Date Comments FOLLOW-UP,[facility] 04/22/2007 Encounter Details Date Type Department Care Team Description 04/22/2007 Telephone RH C91 Rosalia Schafer, FOLLOW-UP,[address] [id number] Social History Tobacco Use Types Packs/Day Years Used Date Smoking Tobacco: Never Alcohol Use Standard Drinks/Week Comments Yes 0 (1 standard drink = 0.6 oz pure alcoho l) rarely Sex Assigned at Date Recorded Not on file documented as of this encounter Nursing Notes Rosalia Schafer - 04/22/2007 11:05 AM CST Pt had concerns about [place] and difficult dealing with night production quality manager She spoke to Soco hernandez this ENTIALER documented in this encounter Plan of Treatment Not on filedocumented as of this encounter Visit Diagnoses Not on filedocumented in this encounter Care Teams Sheet Manufacturing Supervisor Relationship Specialty Start Date End Date Jose Colin, PCP - General 12/24/03 09/17/[address] [place] [address] documented as of this encounter
--- OUTSIDE RECORDS SUMMARY | 2022-02-06 10:30 | XMS_ITS | Encounter Summary ---
:1965 Author Organization [facility] Address [address] [place] [address] Care Team Providers Name Role Phone Unassigned, Provider Primary Care Provider Unavailable Encounter Details Date Type Department Care Team Description 10/31/2005 Orders Only [facility] Internal Med icine Unknown, Physician [address] [facility] [address] [place] [address] [place] [address] [phone] (Wo rk) Social History Tobacco Use Types [...] filedocumented in this encounter Care Teams Director Energy Relationship Specialty Start Date End Date Unassigned, Provider PCP - General 09/18/08 [address] [place] [address] documented as of this encounter
--- OUTSIDE RECORDS SUMMARY | 2022-02-06 10:30 | XMS_ITS | Encounter Summary ---
:1965 Author Organization [facility] Address [address], [place] [address] Care Team Providers Name Role Phone Jose Colin DO Primary Care Provider [phone] Encounter Details Date Type Department Care Team Description 02/24/2006 Outside Hospital External to DISCHARGE SUMMARY/[facility] Social History Tobacco Use Types Packs/Day Years Used Date Smoking Tobacco: Never Alcohol Use Standard Drinks/Week Comments Yes 0 (1 standard drink = 0.6 oz pure alcoho l) rarely Sex Assigned at Date Recorded Not on file documented as of this encounter Progress Notes [facility], PROVIDER - 02/24/2006 12:00 AM CDT documented in this encounter Plan of Treatment Not on filedocumented as of this encounter Visit Diagnoses Not on filedocumented in this encounter Care Teams Fire Pot Operator Relationship Specialty Start Date End Date Jose Colin DO PCP - General 12/24/03 09/17/08 [address] [place] [address] documented as of this encounter
--- OUTSIDE RECORDS SUMMARY | 2022-02-06 10:30 | XMS_ITS | Encounter Summary ---
:1965 Author Organization [facility] Address [address] [address] Care Team Providers Name Role Phone Unassigned, Provider Primary Care Provider Unavailable Encounter Details Date Type Department Care Team Description 02/19/2006 Outside Hospital External to Rissa Dhillon OPE RATIVE REPORT- [facility] Social History Tobacco Use Types Packs/Day [...] filedocumented in this encounter Care Teams Manufacturing Engineer Automotive Relationship Specialty Start Date End Date Unassigned, Provider PCP - General 09/18/[address] [place] [address] documented as of this encounter
--- OUTSIDE RECORDS SUMMARY | 2022-02-06 10:30 | XMS_ITS | Encounter Summary ---
:1965 [facility] Address [address], [place] [address] Care Team Providers Name Role Phone Unassigned, Provider Primary Care Provider Unavailable Encounter Details Date Type Department Care Team Description 02/19/2006 Outside Hospital External to Alejo, Rissa OPE RATIVE REPORT -[facility] Social History Tobacco Use Types Packs/Day [...] filedocumented in this encounter Care Teams Manager Financial Planning Relationship Specialty Start Date End Date Unassigned, Provider PCP - General 09/18/[address] [place] [id number] documented as of this encounter
--- OUTSIDE RECORDS SUMMARY | 2022-02-06 10:30 | XMS_ITS | Encounter Summary ---
:1965 Author Organization [facility] Address [address] [address] Care Team Providers Name Role Phone DixieJose Jerrell BOOGIE Primary Care Provider [phone] Encounter Details Date Type Department Care Team Description 03/22/2006 Office Visit [facility] Huseyin Vogt, Arrived Cardiac Surgery PA-C [address] [facility] [address] [place] [address] [place] [address] [phone] (Wo rk) Social History Tobacco Use Types [...] Notes Huseyin Vogt - 04/11/2006 10:28 AM MANAGER INTRANET VISIT DATE: 03/22/2006 I am seeing the [...] 03/22/2006 14:07:09 Transcribed: 03/25/2006 12:40:40 Doc #: [id number] cc:Jose Colin DO, Primary Physician This document was electronically reviewed by Huseyin Vogt PA-C on 04/04/2006 14:26:23. This document was electronically signed by Kleber Galvan MD on 04/11/2006 10:28:00. 1 Page 1 Patient Name: PADMINI CHOI Visit Date: 03/22/2006 CARDIOLOGY [facility] [address] [phone] Page 1 Patient: [facility]ADMIN[id number] Date of : 1965 Age: 40Y Visit Date: 03/22/2006 CARDIOLOGY documented in this encounter Nursing Notes 03/22/2006 2:00 PM CDT >> TRINY DELGADO 03/22/2006 2:18 pm Jose Colin DO PT HERE FOR F/U documented in this encounter Plan of Treatment Not on filedocumented as of this encounter Visit Diagnoses Not on filedocumented in this encounter Care Teams Administrative Support Coordinator Relationship Specialty Start Date End Date Jose Colin DO PCP - General 12/24/03 09/17/08 [address] [place] [address] documented as of this encounter
--- OUTSIDE RECORDS SUMMARY | 2022-02-06 10:30 | XMS_ITS | Encounter Summary ---
:1965 Author Organization [facility] Address [address] [address] Care Team Providers Name Role Phone Jose Colin DO Primary Care Provider [phone] Encounter Details Date Type Department Care Team Description 11/07/2005 Hospital Encounter [facility] MD Yun ENDOMETRIAL POLYP [address] [place] [address] Social History Tobacco Use Types [...] 11/07/2005 20:32:53 Transcribed: 11/07/2005 22:32:42 Doc #: [id number] cc: Yun Flynn MD, Attending Physician Jose [...] 11/07/2005 OUTPATIENT OPERATIVE REPORT [facility] [address] [phone] Page 1 Patient: PADMINI CHOI [id number] Date of : 1965 Age: 40Y Visit Date: 11/07/2005 OUTPATIENT OPERATIVE REPORT documented in this encounter Miscellaneous Notes OR Nursing - Emmie Burch - 11/07/2005 9:44 AM CDT [facility] Progress Note Patient Name: Padmini [...] Results SURGICAL PATH (11/07/2005 12:00 AM CDT) [facility] Method Time Signature 9911 (NOTE) [facility] Surgical [...] Signed Out By ? Gudelia Jaffe MD (1999) Procedures/Addenda Clinical History Excessive bleeding Gross Description [...] on six slides. man/11/08/2005 Gudelia Jaffe MD ([id number]) Specimen (Source) Anatomical Location Collection Method / Collectio n Time Received Time / Laterality Volume 11/07/2005 11/07/2005 Yun Flynn MD LAB_1 Performing Organization Address City/State/ZIP Code Phon e Number [address] [address] [place], [place] [phone] documented in this encounter Visit Diagnoses Diagnosis [...] Sun11/07/05 documented in this encounter Care Teams Mixing Pan Tender Relationship Specialty Start Date End Date Jose Colin DO PCP - General 12/24/03 09/17/08 [address] [place] [id number] documented as of this encounter
--- OUTSIDE RECORDS SUMMARY | 2022-02-06 10:31 | XMS_ITS | Encounter Summary ---
:1965 Author Organization [facility] Address [address] [place] [address] Care Team Providers Name Role Phone MoJose medina DO Primary Care Provider Encounter Details Date [...] Comments Blood Pressure 123/62 07/13/2005 2:00 PM GARMENT LINER Pulse 66 07/13/2005 2:00 PM GARMENT LINER Temperature 36.6 ??C (97.8 ??F) 07/13/2005 11:59 AM GARMENT LINER Respiratory Rate 16 07/13/2005 2:00 PM GARMENT LINER Oxygen Saturation 100% 07/13/2005 2:00 PM GARMENT LINER Inhaled Oxygen Concentration - - Weight 82.6 kg (182 lb 1.6 oz) 07/13/2005 11:59 AM GARMENT LINER Height 160 cm (5' 3) 07/13/2005 11:59 AM GARMENT LINER Body Mass Index 32.26 07/13/2005 11:59 AM GARMENT LINER documented in this encounter Medications at Time [...] Notes Clark Jose - 07/13/2005 12:00 AM GARMENT LINER DATE OF SURGERY: July 13, 2005 PREOPERATIVE [...] Jose MD Transcribed: 07/14/2005 08:17:07 Doc #: [id number] cc: Jose Colin DO, Referring/Primary DO NOT [...] 07/13/2005 OUTPATIENT OPERATIVE REPORT CONFIDENTIAL MEDICAL RECORD [address] [address] Page 1 Patient: PADMINI CHOI [id number] Date of : 1965 Age: 40Y Visit Date: 07/13/2005 OUTPATIENT OPERATIVE REPORT ENT LINER documented in this encounter Plan of Treatment Not on filedocumented as of this encounter Procedures Procedure Name Priority Date/Time Associated Diagnosis Comme nts EXCISION MASS FINGER OR HPSDS 07/13/2005 12:40 PM GARMENT LINER HAND OR WRIST Case Notes right wrist ganglion cyst ex cision SURGICAL PATH Routine 07/13/2005 12:00 AM GARMENT LINER Res ults for this procedure are in the results section . documented in this encounter Results SURGICAL PATH (07/13/2005 12:00 AM GARMENT LINER) [facility] gist Method Time Signature 9911 (NOTE) [facility] Surgical Final Report Patient Name: PADMINI CHOI Taken: 07/13/2005 Received: 07/13/2005 Reported: 07/14/2005 Physician(s): CLARK JOSE ([id number]) ? Final Pathologic Diagnosis Soft tissue, right wrist, excision ??Ganglion cyst. cab/07/14/2005 Electronically Signed Out By ? Sudha Mahoney MD ([id number]) Procedures/Addenda Clinical History Cyst Gross Description The [...] one (1) slide. cab/07/14/2005 Sudha Mahoney MD ([id number]) Specimen (Source) Anatomical Location Collection Method / Collectio n Time Received Time / Laterality Volume 07/13/2005 07/13/2005 Clark Jose MD LAB_1 Performing Organization Address City/State/ZIP Code Phon e Number [address] [address] [place], [place] [phone] documented in this encounter Visit Diagnoses Not on filedocumented in this encounter Administered Medications Inactive Administered Medications - up to 3 most recent administrations Medication Order MAR Action Action Date Dose Rate Site BUPIVACAINE HCL 0.5 % SOLN Given 07/13/2005 1:19 PM GARMENT LINER 6 mL Injection, Starting on Elda 07/13/05 DEXAMETHASONE SODIUM PHOSPHATE 4 MG/ML IJ Given 07/13/2005 3:16 PM GARMENT LINER 4 mg Port SOLN 4 mg, Intravenous, Starting on Elda 07/13/05, Until Elda 07/13/05 at 1731 FENTANYL CITRATE 0.05 MG/ML IJ SOLN Given 07/13/2005 2:02 PM GARMENT LINER 50 mcg Port 50 mcg, Intravenous, Starting on Elda 07/13/05, Until Elda 07/13/05 at 1731 Given 07/13/2005 1:48 PM GARMENT LINER 50 mcg Port KETOROLAC TROMETHAMINE 30 MG/ML IJ SOLN Given 07/13/2005 1:49 PM GARMENT LINER 30 mg Port 30 mg, Intravenous, Starting on Elda 07/13/05, Until Elda 07/13/05 at 1731 METOCLOPRAMIDE HCL 5 MG/ML IJ SOLN Given 07/13/2005 3:13 PM GARMENT LINER 10 mg Port 10 mg, Intravenous, Starting on Elda 07/13/05, Until Elda 07/13/05 at 1731 OXYCODONE-ACETAMINOPHEN Given 07/13/2005 1:45 PM GARMENT LINER 1 Tablet 1 Tablet, Oral, Starting on Elda 07/13/05, Until Elda 07/13/05 at 1731 ZOFRAN 2MG/ML IV SOLN Given 07/13/2005 3:05 PM GARMENT LINER 4 mg Port 4 mg, Intravenous, Starting on Elda 07/13/05 documented in this encounter Care Teams Hogshead Opener Relationship Specialty Start Date End Date Jose Colin DO PCP - General 12/24/03 09/17/08 [address] [place] [address] documented as of this encounter
--- OUTSIDE RECORDS SUMMARY | 2022-02-06 10:31 | XMS_ITS | Encounter Summary ---
:1965 [facility] Address [address] [place] [address] Care Team Providers Name Role Phone Jose Stack DO Primary Care Provider [phone] Reason for Visit Reason Onset Date Comments Refill 02/15/2005 Encounter Details Date Type Department Care Team Description 02/15/2005 Refill [facility] Jose Stack, DO Refill 205 [facility] [address] [place] [address] [place], [place] [phone] [address] (Wo rk) Social History Tobacco Use [...] nos documented in this encounter Care Teams Executive Sales Manager Relationship Specialty Start Date End Date Jose Stack DO PCP - General 12/24/03 09/17/08 [address] [place] [address] documented as of this encounter
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
--- OUTSIDE RECORDS SUMMARY | 2022-02-06 10:31 | XMS_ITS | Encounter Summary ---
:1965 Author Organization [facility] Address [address] [address] Care Team Providers Name Role Phone Jose Colin DO Primary Care Provider Reason for Visit Reason Onset Date Comments ERRONEOUS ENTRY 06/16/2005 Encounter Details Date Type Department Care Team Description 06/16/2005 Telephone [facility] Jose Witt, ERRONEOUS ENTRY [address] [place] [address] 795 [facility] [phone] [place] [phone] (Wo rk) Social History Tobacco Use Types Packs/Day Years Used Date Smoking Tobacco: Never Alcohol Use Standard Drinks/Week Comments Yes 0 (1 standard drink = 0.6 oz pure alcoho l) rarely Sex Assigned at Date Recorded Not on file documented as of this encounter Nursing Notes 06/16/2005 11:59 PM FINANCE ATTORNEY >> MELISSA OBREGON Fri Jun 16, 2005 2:05 PM Encounter initiated. documented in this encounter Plan of Treatment Not on filedocumented as of this encounter Visit Diagnoses Not on filedocumented in this encounter Care Teams Data Communications Technician Relationship Specialty Start Date End Date Jose Colin, DO PCP - General 12/24/03 09/17/08 [address] [place] [address] documented as of this encounter
--- OUTSIDE RECORDS SUMMARY | 2022-02-06 10:31 | XMS_ITS | Encounter Summary ---
:1965 Author Organization [facility] Address [address] [place] [address] Care Team Providers Name Role Phone Jose Colin DO Primary Care Provider [phone] Encounter Details Date Type Department Care Team Description 08/26/2005 Correspondence None Unknown, Physici an CONSENT AND RELEASE [address] [place], [place] [address] (Wo rk) Social History Tobacco Use Types Packs/Day Years Used Date Smoking Tobacco: Never Alcohol Use Standard Drinks/Week Comments Yes 0 (1 standard drink = 0.6 oz pure alcoho l) rarely Sex Assigned at Date Recorded Not on file documented as of this encounter Progress Notes Unknown, Physician - 08/26/2005 12:00 AM SHORT RANGE AIR DEFENSE ARTILLERY documented in this encounter Plan of Treatment Not on filedocumented as of this encounter Visit Diagnoses Not on filedocumented in this encounter Care Teams Global Clinical Leader Relationship Specialty Start Date End Date Jose Colin DO PCP - General 12/24/03 09/17/[address] [place] [address] documented as of this encounter
--- OUTSIDE RECORDS SUMMARY | 2022-02-06 10:31 | XMS_ITS | Encounter Summary ---
:1965 Author Organization [facility] Address [address] [place] [address] Care Team Providers Name Role Phone Jose Colin DO Primary Care Provider [phone] Reason for Visit Reason Comments PRE-OP EXAM Encounter Details Date Type Department Care Team Description 09/22/2004 Office Visit [facility] Internal [place], PREOP EXAM OTHER SPECIFIED (Primary Dx); Medicine Jose Allan DO DISC DIS NEC/NOS-LUMBAR 205 [facility] [address] [place] [address] [place], [place] [phone] [address] Social History Tobacco Use Types Packs/Day [...] Body Mass Index 30.91 09/02/2002 2:00 PM WATER RECLAMATION SYSTEMS OPERATOR documented in this encounter Patient Instructions Patient Xziotdwqquxn80/14/2005 4:00 PM CDT Stop by Lab for [...] surgery. She is scheduled for surgery at [facility] on 09/27/[address] Espinosa. 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* [employer] Social History Main Topics Tobacco Use: Never [...] surgery LAB: labs pending ASSESSMENT/PLAN: 1) Megan Cohi is a 39 yr old female is [...] [facility] k/ul RBC 4.35 4.0 - 5.2 [facility] M/ul Hemoglobin 13.8 12.0 - [facility] 16.0 g/dl HCT 41.0 36.0 - [facility] 46.0 % MCV 94.1 80 - 100 [facility] fl MCH 31.8 26 - 34 pg [facility] MCHC 33.8 32 - 36 % [facility] RDW 13.4 11.5 - [facility] 14.5 % Platelets 237 150 - 450 [facility] k/ul PMN/Band 63 43 - 72 % [facility] Lymph 28 17 - 43 % [facility] Tyler 8 4 - 12 % [facility] Eos 1 0 - 8 % [facility] Baso 1 0 - 1 % [facility] Neutrophil 5.9 1.8 - 7.7 [facility] Absolute k/ul Lymph Absolute 2.6 1.0 - 4.8 [facility] k/ul Tyler Absolute 0.7 0.1 - 0.7 [facility] k/ul Eos Absolute 0.1 0.0 - 0.5 [facility] k/ul Baso Absolute 0.1 0.0 - 0.2 [facility] k/ul Specimen Anatomical Collection Method Collection Time Receive d Time (Source) Location / / Volume Laterality 09/22/2004 4:50 PM 5 4:51 CDT PM CDT Jose Colin DO LAB_1 Performing Organization Address City/State/[facility] Code Phon e Number [facility] [phone] [facility] [address] [phone] documented in this encounter Visit Diagnoses Diagnosis Other specified pre-operative examinatio n - Primary Other and unspecified disc disorder of l umbar region (HRC) Other and unspecified disc disorder of l umbar region documented in this encounter Care Teams Fiber Analyst Relationship Specialty Start Date End Date Jose Colin DO PCP - General 12/24/03 09/17/[address] [place] [address] documented as of this encounter
--- OUTSIDE RECORDS SUMMARY | 2022-02-06 10:31 | XMS_ITS | Encounter Summary ---
:1965 Author Organization [facility] Address [address] [place] [address] Care Team Providers Name Role Phone Dungjosé antonioelbaJose medina Primary Care Provider [phone] Reason for Visit Reason Onset Date Comments Medication Questions 10/16/2005 Encounter Details Date Type Department Care Team Description 10/16/[address] [facility] Obstetrics and Yun Flynn MD Medication Questions Gynecology [address] [place] [address] Social History Tobacco Use Types [...] on filedocumented in this encounter Care Teams Rare/Endangered Species Specialist Relationship Specialty Start Date End Date Jose Colin DO PCP - General 12/24/03 09/17/08 [address] [place] [address] documented as of this encounter
--- OUTSIDE RECORDS SUMMARY | 2022-02-06 10:31 | XMS_ITS | Encounter Summary ---
:1965 Author Organization [facility] Address [address] [place] [address] Care Team Providers Name Role Phone Jose Colin DO Primary Care Provider [phone] Reason for Visit Reason Comments PRE-OP EXAM cyst removal on Rt wrist 07/[address] Jose at [facility] Encounter Details Date Type Department Care Team Description 07/10/2005 Office Visit [facility] Internal Dixie, PREOP EXAM OTHER SPECIFIED (Primary Dx); Medicine oJse Allan, RADICULAR CYST 205 [facility] [address] [place] [address] [place], [place] [phone] [address] Social History Tobacco Use Types Packs/Day Years Used Date Smoking Tobacco: Never Alcohol Use Standard Drinks/Week Comments Yes 0 (1 standard drink = 0.6 oz pure alcoho l) rarely Sex Assigned at Date Recorded Not on file documented as of this encounter Last Filed Vital Signs Vital Sign Reading Time Taken Comments Blood Pressure 108/64 07/10/2005 3:20 PM WOVEN WOOD SHADE ASSEMBLER Pulse 64 07/10/2005 3:20 PM WOVEN WOOD SHADE ASSEMBLER Temperature 36.9 ??C (98.4 ??F) 07/10/2005 3:20 PM WOVEN WOOD SHADE ASSEMBLER Respiratory Rate 16 07/10/2005 3:20 PM WOVEN WOOD SHADE ASSEMBLER Oxygen Saturation - - Inhaled Oxygen Concentration - - Weight 82.6 kg (182 lb) 07/10/2005 3:20 PM WOVEN WOOD SHADE ASSEMBLER Height 157.5 cm (5' 2) 07/10/2005 3:20 PM WOVEN WOOD SHADE ASSEMBLER Body Mass Index 33.29 07/10/2005 3:20 PM WOVEN WOOD SHADE ASSEMBLER documented in this encounter Progress Notes 07/10/2005 3:20 PM WOVEN WOOD SHADE ASSEMBLER PRE-OP QUESTIONS: Tightening or pressure in chest [...] for surgery. [facility] Jose. 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
--- OUTSIDE RECORDS SUMMARY | 2022-02-06 10:31 | XMS_ITS | Encounter Summary ---
:1965 [facility] Address [address] [place] [address] Care Team Providers Name Role Phone Jose Colin DO Primary Care Provider [phone] Reason for Visit Reason Onset Date Comments QUESTIONS, GENERAL 09/26/2005 Encounter Details Date Type Department Care Team Description 09/26/2005 [facility] Jose Allan DO [address] [place], [place] [address] [place], [place] [phone] [address] Social History Tobacco Use Types Packs/Day [...] on filedocumented in this encounter Care Teams Internal Grinding Machine Operator Relationship Specialty Start Date End Date Jose Colin, PCP - General 12/24/03 09/17/08 [address] [place] [address] documented as of this encounter
--- OUTSIDE RECORDS SUMMARY | 2022-02-06 10:31 | XMS_ITS | Encounter Summary ---
:1965 Author Organization [facility] Address [address] [place] [address] Care Team Providers Name Role Phone Jose Colin DO Primary Care Provider [phone] Reason for Visit Reason Comments TOE PAIN--ED right foot jamed her toes in to the door 3rd , 4th 5th toe Encounter Details Date Type Department Care Team Description 06/26/2005 [facility] Visit [facility]E [facility]ES[facility] Foot and Ankle Surge ry DPM [address] [place] [address] Social History Tobacco Use Types Packs/Day Years Used Date Smoking Tobacco: Never Alcohol Use Standard Drinks/Week Comments Yes 0 (1 standard drink = 0.6 oz pure alcoho l) rarely Sex Assigned at Date Recorded Not on file documented as of this encounter Last Filed Vital Signs Vital Sign Reading Time Taken Comments Blood Pressure 121/71 06/26/2005 8:58 AM MEDICAL APPARATUS MODEL MAKER Pulse 84 06/26/2005 8:58 AM MEDICAL APPARATUS MODEL MAKER Temperature 36.2 ??C (97.2 ??F) 06/26/2005 8:58 AM MEDICAL APPARATUS MODEL MAKER Respiratory Rate - - Oxygen Saturation - - Inhaled Oxygen Concentration - - Weight - - Height - - Body Mass Index - - documented in this encounter Progress Notes 06/26/2005 9:10 AM MEDICAL APPARATUS MODEL MAKER This office note has been dictated. MARÍA [...] progress. ?? A cc: Jose Colin DO CAL APPARATUS MODEL MAKER documented in this encounter Plan of Treatment Not on filedocumented as of this encounter Visit Diagnoses Diagnosis Lesion of plantar nerve documented in this encounter Care Teams Heel Nailing Machine Operator Relationship Specialty Start Date End Date Jose Colin, PCP - General 12/24/03 09/17/08 [address] [place] [address] documented as of this encounter
--- OUTSIDE RECORDS SUMMARY | 2022-02-06 10:31 | XMS_ITS | Encounter Summary ---
:1965 Author Organization [facility] Address [address] [place] [address] Care Team Providers Name Role Phone DixieJose Jerrell BOOGIE Primary Care Provider [phone] Reason for Visit Reason Comments Follow Up Ultrasound Encounter Details Date Type Department Care Team Description 10/16/2005 Office Visit [facility] Obstetrics and Yun lFynn EN DOMETRIAL POLYP (Primary Dx); Gynecology EXCESSIVE MENSTRUATION [address] [place] [address] Social History Tobacco Use Types [...] menstruation documented in this encounter Care Teams Educational Administration Teacher Relationship Specialty Start Date End Date Jose Colin DO PCP - General 12/24/03 09/17/08 [address] [place] [address] documented as of this encounter
--- OUTSIDE RECORDS SUMMARY | 2022-02-06 10:31 | XMS_ITS | Encounter Summary ---
:1965 Author Organization [facility] Address [address] [place] [address] Care Team Providers Name Role Phone Jose Stack DO Primary Care Provider [phone] Reason for Referral Specialty Diagnoses / Procedures Referred By Contact Refer red To Contact Jose Stack DO [address] [facility] [address] [place] [place] [address] Referral ID Status Reason Start Date Expiration Date Visits Requ ested Visits Authorized Reason for Visit Reason Onset Date Comments REFERRAL REQUEST 11/15/2004 Encounter Details Date Type Department Care Team Description 11/15/2004 Telephone [facility] Internal [facility] Jose Witt REFERRAL REQUEST 205 [place], [place] [phone] [facility] [phone] [place] [address] (Wo rk) Social History Tobacco [...] notified of referral, will be returning [facility], [facility] # she will call to [facility], will fax refer ral Brigido Burch RN [...] Primary documented in this encounter Care Teams Nuclear Control Operator Relationship Specialty Start Date End Date Jose Stack DO PCP - General 12/24/03 09/17/08 [address] [place] [address] documented as of this encounter
--- OUTSIDE RECORDS SUMMARY | 2022-02-06 10:31 | XMS_ITS | Encounter Summary ---
:1965 Author Organization [facility] Address [address], [place] [address] Care Team Providers Name Role Phone Dungjosé antonioelbaJose medina Primary Care Provider [phone] Encounter Details Date Type Department Care Team Description 10/07/2005 Notes/Orders [facility] Obstetrics and Yun Flynn, EX CESSIVE MENSTRUATION; Gynecology MD PREVENTIVE CARE EXAM [address] [place], [place] [phone] Social History Tobacco Use Types Packs/Day Years [...] Yun Flynn MD LAB_1 Performing Organization Address [facility] Code Phon e Number [facility] [phone] [facility] [address] [place] [phone] TSH, SENSITIVE (WITH REFLEX) (10/07/2005 8:32 AM CDT) P athologist Signature TSH, with 1.80 0.3 - 5.0 [facility] Reflex uIU/ml Specimen Anatomical Collection Method Collection Time Receive d Time (Source) Location / / Volume Laterality 10/07/2005 8:32 AM 6 8:33 CDT AM CDT Yun Flynn MD LAB_1 Performing Organization Address [facility] Code Phon e Number [facility] Kik [phone] [phone] (ABNORMAL) GLUCOSE - FASTING > 8 HRS FASTING (V77.1) (10/07/2005 8:31 AM CDT) Analysis Performed At Patho logist Time Signature Glucose 111 (H) 70 - 100 [facility] mg/dl Hours Fasting 12 hours [facility] Specimen Anatomical Collection Method Collection Time Receive d Time (Source) Location / / Volume Laterality 10/07/2005 8:31 AM 6 8:32 CDT AM CDT Yun Flynn MD LAB_1 Performing Organization Address [facility]/ZIP Code Phon e Number [facility] [phone] [phone] documented in this encounter Visit Diagnoses Diagnosis Excessive or frequent menstruation Routine general medical examination at [facility] facility Routine general medical examination at a health care facility documented in this encounter Care Teams Cobol Programmer Relationship Specialty Start Date End Date Jose Colin DO PCP - General 12/24/03 09/17/08 [place] [address] documented as of this encounter
--- OUTSIDE RECORDS SUMMARY | 2022-02-06 10:31 | XMS_ITS | Encounter Summary ---
:1965 Author Organization [facility] Address [address] [place] [address] Care Team Providers Name Role Phone Unassigned, Provider Primary Care Provider Unavailable Encounter Details Date Type Department Care Team Description 07/26/2004 [facility] Gavin Justice MD [address] [place] [address] [phone] (Wo rk) Social History Tobacco Use Types Packs/Day Years Used Date Smoking Tobacco: Never Smokeless Tobacco: Never Alcohol Use Standard Drinks/Week Comments Yes 0 (1 standard drink = 0.6 oz pure alcoho l) rarely Sex Assigned at Date Recorded Not on file documented as of this encounter Procedure Notes Jerome Garg - 07/26/2004 12:00 AM TORCH BURNER DATE OF SURGERY: 07/26/2004 STAFF SURGEON: Gavin [...] nerve impingement. Therefore, she is referred to [facility] pain clinic for evaluation for [...] Justice MD Transcribed: 07/26/2004 14:26:15 Doc #: [id number] cc: Jose Colin, , Primary/Referring DO NOT SIGN UNLESS PRESENT FOR PROCEDURE I attest that I was present for and participated in the ma portions of this procedure(s) in compliance with the Health Care Financing Administration Teaching Physician Guidelines. Signed Date [facility] Staff Physician 1 Page 2 Patient Name: PADMINI CHOI Visit Date: 07/26/2004 OUTPATIENT OPERATIVE REPORT CONFIDENTIAL MEDICAL RECORD [address] [id number] Page 1 Patient: PADMINI CHOI [id number] Date of : 1965 Visit Date: 07/26/2004 OUTPATIENT OPERATIVE REPORT documented in this encounter Plan of Treatment Not on filedocumented as of this encounter Visit Diagnoses Not on filedocumented in this encounter Care Teams Assistant Track And Field Coach Relationship Specialty Start Date End Date Unassigned, Provider PCP - General 09/18/[address] [place] [address] documented as of this encounter
--- OUTSIDE RECORDS SUMMARY | 2022-02-06 10:31 | XMS_ITS | Encounter Summary ---
:1965 Author Organization [facility] Address [address] [address] Care Team Providers Name Role Phone Jose Colin DO Primary Care Provider [phone] Reason for Visit Reason Onset Date Comments RESULTS, TEST 10/09/2005 Encounter Details Date Type Department Care Team Description 10/09/2005 Telephone [facility] Obstetrics and Cathy Vanegas LPN RESULTS, TEST Gynecology [address] [place] [address] [place] [address] [phone] Social History Tobacco Use Types Packs/Day Years [...] on filedocumented in this encounter Care Teams Gas Tender Relationship Specialty Start Date End Date Jose Colin DO PCP - General 12/24/03 09/17/[address] [place] [address] documented as of this encounter
--- OUTSIDE RECORDS SUMMARY | 2022-02-06 10:31 | XMS_ITS | Encounter Summary ---
:1965 Author Organization [facility] Address [address] [place] [address] Care Team Providers Name Role Phone Dixie Jose Jerrell BOOGIE Primary Care Provider [phone] Reason for Visit Reason Comments PAIN, FOOT follow up injection right fo ot metatarsal Encounter Details Date Type Department Care Team Description 07/12/2005 Office Visit Specialty [facility] Huseyin Draper PLAN TAR NERVE LESION Foot and Ankle Surge ry DPM [address] [place] [address] Social History Tobacco Use Types Packs/Day Years Used Date Smoking Tobacco: Never Alcohol Use Standard Drinks/Week Comments Yes 0 (1 standard drink = 0.6 oz pure alcoho l) rarely Sex Assigned at Date Recorded Not on file documented as of this encounter Last Filed Vital Signs Vital Sign Reading Time Taken Comments Blood Pressure 127/68 07/12/2005 1:40 PM NAPHTHALENE OPERATOR Pulse 66 07/12/2005 1:40 PM NAPHTHALENE OPERATOR Temperature 35.7 ??C (96.3 ??F) 07/12/2005 1:40 PM NAPHTHALENE OPERATOR Respiratory Rate - - Oxygen Saturation - - Inhaled Oxygen Concentration - - Weight - - Height - - Body Mass Index - - documented in this encounter Progress Notes 07/12/2005 1:40 PM NAPHTHALENE OPERATOR This office note has been dictated. [...] wear but fairly flexible, has added an [id number] arch support. PLAN: We discussed with the [...] reappoint in three weeks. ?? P cc: THALENE OPERATOR documented in this encounter Nursing Notes 07/12/2005 [...] nerve documented in this encounter Care Teams Bankruptcy Law Specialist Relationship Specialty Start Date End Date Jose Colin DO PCP - General 12/24/03 09/17/08 [address] [place] [address] documented as of this encounter
--- OUTSIDE RECORDS SUMMARY | 2022-02-06 10:31 | XMS_ITS | Encounter Summary ---
:1965 Author Organization Pending sale to [facility] [address], [place] [address] Care Team Providers Name Role Phone DungJose gonzalez Primary Care Provider [phone] Encounter Details Date Type Department Care Team Description 08/09/2005 Office Visit [facility] Plastic Aravind Jose MD GANGLION NOS Surgery [address] [place] [address] Social History Tobacco Use Types Packs/Day Years [...] on a p.r.n. basis only. P cc: FACTURING ENGINEERING INTERN documented in this encounter Nursing Notes 08/09/2005 [...] unspecified documented in this encounter Care Teams Scientific Glass Blower Relationship Specialty Start Date End Date Jose Colin DO PCP - General 12/24/03 09/17/08 [address] [place] [address] documented as of this encounter
--- OUTSIDE RECORDS SUMMARY | 2022-02-06 10:31 | XMS_ITS | Encounter Summary ---
:1965 Author Organization [facility] Address [address] [address] Care Team Providers Name Role Phone DixieJose Jerrell BOOGIE Primary Care Provider [phone] Reason for Visit Reason Comments Foot Pain follow up right foot pain ba ll of her foot, wanting another injection coritisone last done 06/26/05 Encounter Details Date Type Department Care Team Description 08/04/2005 Office Visit Specialty Center Huseyin Draper PLAN TAR NERVE LESION Foot and Ankle Surge ry DPNita (Primary Dx) [address] [place] [address] Social History Tobacco Use Types Packs/Day Years Used Date Smoking Tobacco: Never Alcohol Use Standard Drinks/Week Comments Yes 0 (1 standard drink = 0.6 oz pure alcoho l) rarely Sex Assigned at Date Recorded Not on file documented as of this encounter Last Filed Vital Signs Vital Sign Reading Time Taken Comments Blood Pressure 96/64 08/04/2005 2:00 PM RANCH HAND SUPERVISOR Pulse 66 08/04/2005 2:00 PM RANCH HAND SUPERVISOR Temperature 36.6 ??C (97.9 ??F) 08/04/2005 2:00 PM RANCH HAND SUPERVISOR Respiratory Rate - - Oxygen Saturation - - Inhaled Oxygen Concentration - - Weight - - Height - - Body Mass Index - - documented in this encounter Progress Notes 08/04/2005 2:00 PM RANCH HAND SUPERVISOR This office note has been dictated. MARÍA [...] All questions were answered. ?? P cc: H HAND SUPERVISOR documented in this encounter Nursing Notes 08/04/2005 [...] Primary documented in this encounter Care Teams Bridal Service Sales And Management Relationship Specialty Start Date End Date Jose Colin DO PCP - General 12/24/03 09/17/08 [address] [place] [address] documented as of this encounter
--- OUTSIDE RECORDS SUMMARY | 2022-02-06 10:31 | XMS_ITS | Encounter Summary ---
:1965 Author Organization [facility] Address [address] [address] Care Team Providers Name Role Phone Jose Colin DO Primary Care Provider [phone] Encounter Details Date Type Department Care Team Description 11/23/2004 Therapy External to Yeyo Colin DO [address] [place] [address] (Wo rk) Social History Tobacco [...] on filedocumented in this encounter Care Teams Family Resource Coordinator Relationship Specialty Start Date End Date Jose Colin DO PCP - General 12/24/03 09/17/08 [address] [place] [address] documented as of this encounter
--- OUTSIDE RECORDS SUMMARY | 2022-02-06 10:31 | XMS_ITS | Encounter Summary ---
:1965 [facility] Address [address] [place] [address] Care Team Providers Name Role Phone Jose Colin DO Primary Care Provider [phone] Reason for Referral Specialty Diagnoses / Procedures Referred By Contact Refer red To Contact Jose Colin DO [address] [place], [place] [address] Referral ID Status Reason Start Date Expiration Date Visits Requ ested Visits Authorized AL BOUNTY HUNTER Reason for Visit Reason Comments BACK PAIN affects both legs Encounter Details Date Type Department Care Team Description 05/25/2005 Office Visit [facility] Internal [place] LOW BACK DEBRA IN Medicine Jose Allan DO (CHRONIC)>6 WEEKS [address] [facility] [address] (Primary Dx) [place] [address] [place], [place] [phone] [address] Social History Tobacco Use Types Packs/Day Years Used Date Smoking Tobacco: Never Alcohol Use Standard Drinks/Week Comments Yes 0 (1 standard drink = 0.6 oz pure alcoho l) rarely Sex Assigned at Date Recorded Not on file documented as of this encounter Last Filed Vital Signs Vital Sign Reading Time Taken Comments Blood Pressure 126/72 05/25/2005 4:17 PM ANIMAL BOUNTY HUNTER Pulse 72 05/25/2005 4:17 PM ANIMAL BOUNTY HUNTER Temperature - - Respiratory Rate 16 05/25/2005 4:17 PM ANIMAL BOUNTY HUNTER Oxygen Saturation - - Inhaled Oxygen Concentration - - Weight 82.1 kg (181 lb) 05/25/2005 4:17 PM ANIMAL BOUNTY HUNTER Height 160 cm (5' 3) 05/25/2005 4:17 PM ANIMAL BOUNTY HUNTER Body Mass Index 32.06 05/25/2005 4:17 PM ANIMAL BOUNTY HUNTER documented in this encounter Patient Instructions Patient Atodykrzvuva44/15/2005 4:20 PM ANIMAL BOUNTY HUNTER PLEASE STOP AT CHECK OUT DESK BEFORE LEAVING THE CLINIC Check in at the Pharmacy for your prescription(s) to be filled at the Clinic documented in this encounter Progress Notes 05/25/2005 4:20 PM ANIMAL BOUNTY HUNTER SUBJECTIVE: Work comp?: no History of: -back [...] y documented in this encounter Care Teams Needle Felt Making Machine Operator Relationship Specialty Start Date End Date Jose Colin DO PCP - General 12/24/03 09/17/[address] [place] [address] documented as of this encounter
--- OUTSIDE RECORDS SUMMARY | 2022-02-06 10:31 | XMS_ITS | Encounter Summary ---
:1965 Author Organization [facility] [address], [place] [address] Care Team Providers Name Role Phone DungJose gonzalez Primary Care Provider [phone] Encounter Details Date Type Department Care Team Description 07/19/2005 Office Visit [facility] Plastic Aravind Jose MD GANGLION NOS Surgery [address] [place] [address] Social History Tobacco Use Types Packs/Day Years Used Date Smoking Tobacco: Never Alcohol Use Standard Drinks/Week Comments Yes 0 (1 standard drink = 0.6 oz pure alcoho l) rarely Sex Assigned at Date Recorded Not on file documented as of this encounter Last Filed Vital Signs Vital Sign Reading Time Taken Comments Blood Pressure 115/65 07/19/2005 2:30 PM READING TUTOR Pulse 74 07/19/2005 2:30 PM READING TUTOR Temperature - - Respiratory Rate 12 07/19/2005 2:30 PM READING TUTOR Oxygen Saturation - - Inhaled Oxygen Concentration [...] a return to work notice. P cc: ING TUTOR Aravind Jose - 07/19/2005 12:00 AM READING TUTOR ING TUTOR documented in this encounter Nursing Notes 07/19/2005 [...] unspecified documented in this encounter Care Teams Oven Technician Relationship Specialty Start Date End Date Jose Colin DO PCP - General 12/24/03 09/17/08 [address] [place] [address] documented as of this encounter
--- OUTSIDE RECORDS SUMMARY | 2022-02-06 10:31 | XMS_ITS | Encounter Summary ---
:1965 Author Organization [facility] Address [address] [place] [address] Care Team Providers Name Role Phone Pipo Colinen Jerrell BOOGIE Primary Care Provider [phone] Encounter Details Date Type Department Care Team Description 07/13/2005 Hospital Encounter [facility] Day Clark Jose, [facility] [place] [address] Social History Tobacco Use Types Packs/Day Years Used Date Smoking Tobacco: Never Alcohol Use Standard Drinks/Week Comments Yes 0 (1 standard drink = 0.6 oz pure alcoho l) rarely Sex Assigned at Date Recorded Not on file documented as of this encounter Last Filed Vital Signs Vital Sign Reading Time Taken Comments Blood Pressure 111/54 07/13/2005 3:45 PM DIALS INSPECTOR Pulse 72 07/13/2005 3:45 PM DIALS INSPECTOR Temperature 36.6 ??C (97.8 ??F) 07/13/2005 2:15 PM DIALS INSPECTOR Respiratory Rate 16 07/13/2005 3:45 PM DIALS INSPECTOR Oxygen Saturation 93% 07/13/2005 3:45 PM DIALS INSPECTOR Inhaled Oxygen Concentration - - Weight 82.6 kg (182 lb 1.6 oz) 07/13/2005 11:59 AM DIALS INSPECTOR Height 160 cm (5' 3) 07/13/2005 11:59 AM DIALS INSPECTOR Body Mass Index 32.26 07/13/2005 11:59 AM DIALS INSPECTOR documented in this encounter Medications at Time [...] Notes Clark Jose - 07/13/2005 12:00 AM DIALS INSPECTOR DATE OF SURGERY: July 13, 2005 PREOPERATIVE [...] Jose MD Transcribed: 07/14/2005 08:17:07 Doc #: [id number] cc: Jose Colin DO, Referring/Primary DO NOT [...] 07/13/2005 OUTPATIENT OPERATIVE REPORT CONFIDENTIAL MEDICAL RECORD [address] [phone] Page 1 Patient: PADMINI CHOI [id number] Date of : 1965 Age: 40Y Visit Date: 07/13/2005 OUTPATIENT OPERATIVE REPORT S INSPECTOR documented in this encounter Plan of Treatment Not on filedocumented as of this encounter Procedures Procedure Name Priority Date/Time Associated Diagnosis Comme nts EXCISION MASS FINGER OR HPSDS 07/13/2005 12:40 PM DIALS INSPECTOR HAND OR WRIST Case Notes right wrist ganglion cyst ex cision SURGICAL PATH Routine 07/13/2005 12:00 AM DIALS INSPECTOR Res ults for this procedure are in the results section . documented in this encounter Results SURGICAL PATH (07/13/2005 12:00 AM DIALS INSPECTOR) [facility] gist Method Time Signature 9911 (NOTE) [facility] Surgical Final Report Patient Name: PADMINI CHOI Taken: 07/13/2005 Received: 07/13/2005 Reported: 07/14/2005 Physician(s): CLARK JOSE ([id number]) ? Final Pathologic Diagnosis Soft tissue, right wrist, excision ??Ganglion cyst. cab/07/14/2005 Electronically Signed Out By ? Sudha Mahoney MD ([id number]) Procedures/Addenda Clinical History Cyst Gross Description The [...] examination is performed on one (1) slide. [facility]07/14/2005 Sudha Mahoney MD ([id number]) Specimen (Source) Anatomical Location Collection Method / Collectio n Time Received Time / Laterality Volume 07/13/2005 07/13/2005 Clark Jose MD LAB_1 Performing Organization Address City/State/ZIP Code Phon e Number [address] [address] [place], [place] [phone] documented in this encounter Visit Diagnoses Diagnosis Ganglion of joint documented in this encounter Administered Medications Inactive Administered Medications - up to 3 most recent administrations Medication Order MAR Action Action Date Dose Rate Site BUPIVACAINE HCL 0.5 % SOLN Given 07/13/2005 1:19 PM DIALS INSPECTOR 6 mL Injection, Starting on [place] 07/13/05 DEXAMETHASONE SODIUM PHOSPHATE 4 MG/ML IJ Given 07/13/2005 3:16 PM DIALS INSPECTOR 4 mg Port SOLN 4 mg, Intravenous, Starting on [place] 07/13/05, Until [place] 07/13/05 at 1731 FENTANYL CITRATE 0.05 MG/ML IJ SOLN Given 07/13/2005 2:02 PM DIALS INSPECTOR 50 mcg Port 50 mcg, Intravenous, Starting on [place] 07/13/05, Until [place] 07/13/05 at 1731 Given 07/13/2005 1:48 PM DIALS INSPECTOR 50 mcg Port KETOROLAC TROMETHAMINE 30 MG/ML IJ SOLN Given 07/13/2005 1:49 PM DIALS INSPECTOR 30 mg Port 30 mg, Intravenous, Starting on [place] 07/13/05, Until [place] 07/13/05 at 1731 METOCLOPRAMIDE HCL 5 MG/ML IJ SOLN Given 07/13/2005 3:13 PM DIALS INSPECTOR 10 mg Port 10 mg, Intravenous, Starting on [place] 07/13/05, Until [place] 07/13/05 at 1731 OXYCODONE-ACETAMINOPHEN Given 07/13/2005 1:45 PM DIALS INSPECTOR 1 Tablet 1 Tablet, Oral, Starting on [place] 07/13/05, Until [place] 07/13/05 at 1731 ZOFRAN 2MG/ML IV SOLN Given 07/13/2005 3:05 PM DIALS INSPECTOR 4 mg Port 4 mg, Intravenous, Starting on [place] 07/13/05 documented in this encounter Care Teams Grain And Yeast Plants Supervisor Relationship Specialty Start Date End Date Jose Colin DO PCP - General 12/24/03 09/17/08 [address] [place] [address] documented as of this encounter
--- OUTSIDE RECORDS SUMMARY | 2022-02-06 10:31 | XMS_ITS | Encounter Summary ---
:1965 Author Organization [facility] Address [address] [place] [address] Care Team Providers Name Role Phone Jose Colin DO Primary Care Provider [phone] Encounter Details Date Type Department Care Team Description 09/21/2004 Orders Only [facility] Radiology Unknown, Physician [address] [facility] [address] [place] [address] [place] [address] [phone] (Wo rk) Social History Tobacco Use Types [...] on filedocumented in this encounter Care Teams Aviation Safety Officer Relationship Specialty Start Date End Date Jose Colin, DO PCP - General 12/24/03 09/17/08 [address] [place] [address] documented as of this encounter
--- OUTSIDE RECORDS SUMMARY | 2022-02-06 10:31 | XMS_ITS | Encounter Summary ---
:1965 Author Organization [facility] Address [address], [place] [address] Care Team Providers Name Role Phone Unassigned, Provider Primary Care Provider Unavailable Encounter Details Date Type Department Care Team Description 08/23/2004 [facility] Day Gavin Justice MD Surgery Center [address] [place] [address] [place] [address] [phone] Social History Tobacco Use Types Packs/Day Years Used Date Smoking Tobacco: Never Smokeless Tobacco: Never Alcohol Use Standard Drinks/Week Comments Yes 0 (1 standard drink = 0.6 oz pure alcoho l) rarely Sex Assigned at Date Recorded Not on file documented as of this encounter Procedure Notes Jerome Garg - 08/23/2004 12:00 AM BANK EXAMINER DATE OF SURGERY: August 23, 2004. STAFF [...] Justice MD Transcribed: 08/24/2004 07:37:56 Doc #: [id number] cc: Jose Colin, DO, Referring DO NOT SIGN UNLESS PRESENT FOR PROCEDURE I attest that I was present for and participated in the ma portions of this procedure(s) in compliance with the Health Care Financing Administration Teaching Physician Guidelines. Signed Date [facility] Staff Physician 1 Page 2 Patient Name: PADMINI CHOI Visit Date: 08/23/2004 OUTPATIENT OPERATIVE REPORT CONFIDENTIAL MEDICAL RECORD [address] [phone] Page 1 Patient: PADMINI CHOI Location: PAIN HPN: [id number] Date of : 1965 Visit Date: 08/23/2004 OUTPATIENT OPERATIVE REPORT documented in this encounter Plan of Treatment Not on filedocumented as of this encounter Visit Diagnoses Not on filedocumented in this encounter Care Teams Cyber Forensics Analyst Relationship Specialty Start Date End Date Unassigned, Provider PCP - General 09/18/[address] [place] [address] documented as of this encounter
--- OUTSIDE RECORDS SUMMARY | 2022-02-06 10:31 | XMS_ITS | Encounter Summary ---
:1965 Author Organization [facility] Address [address] [place] [address] Care Team Providers Name Role Phone Jose Colin DO Primary Care Provider [phone] Reason for Visit Reason Comments PRE-OP EXAM Encounter Details Date Type Department Care Team Description 10/31/2005 Office Visit [facility] Internal [place], PREOP EXAM OTHER SPECIFIED (Primary Dx); Medicine Jose Allan DO EXCESSIVE MENSTRUATION [address] [facility] [address] [place] [address] [place] [phone] [address] Social History Tobacco Use Types Packs/Day [...] for surgery. She isscheduled [facility] at [facility] on [facility] Hobson. HPI: long-standing menometthorgia and fibroids; The rest of the complete ROS are negative. 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* [employer] Social History Main Topics Tobacco [...] TUBE & HOLD (10/31/2005 4:11 PM CDT) [facility] gist Method Time Signature Draw and Hold Specimen [facility] Available Based on Sample Stability Specimen Anatomical Collection Method Collection Time Receive d Time (Source) Location / / Volume Laterality 10/31/2005 4:11 PM 6 4:12 CDT PM CDT Jose Colin DO LAB_1 Performing Organization Address City/State/ZIP Code Phon e Number [facility] [phone] [facility] [address] [place] [address] HEMOGRAM/PLTS/DIFF (10/31/2005 4:11 PM CDT) athologist [...] Lymph 34 17 - 43 % [facility] [place] 7 4 - 12 % [facility] Eos 2 0 - 8 % [facility] Baso 1 0 - 1 % [facility] Neutrophil 4.3 1.8 - 7.7 [facility] Absolute k/ul Lymph Absolute 2.7 1.0 - 4.8 [facility] k/ul [place] Absolute 0.6 0.1 - 0.7 [facility] k/ul Eos Absolute 0.2 0.0 - 0.5 [facility] k/ul Baso Absolute 0.1 0.0 - 0.2 [facility] k/ul Specimen Anatomical Collection Method Collection Time Receive d Time (Source) Location / / Volume Laterality 10/31/2005 4:11 PM 4:12 CDT PM CDT Jose Colin DO LAB_1 Performing Organization Address City/State/ZIP Code Phon e Number [facility] [phone] [address] documented in this encounter Visit Diagnoses Diagnosis Other specified pre-operative examinatio n - Primary Excessive or frequent menstruation documented in this encounter Care Teams Transmission Specialist Relationship Specialty Start Date End Date Jose Colin DO PCP - General 12/24/03 09/17/[address] [place] [address] documented as of this encounter
--- OUTSIDE RECORDS SUMMARY | 2022-02-06 10:31 | XMS_ITS | Encounter Summary ---
:1965 Author Organization [facility] Address [address] [place] [address] Care Team Providers Name Role Phone DungJose gonzalez Primary Care Provider [phone] Encounter Details Date Type Department Care Team Description 06/01/2005 Orders Only [facility] Radiology Unknown, Physician [address] [facility]. [address] [place] [address] [place] [address] [phone] (Wo rk) Social History Tobacco Use Types Packs/Day Years Used Date Smoking Tobacco: Never Alcohol Use Standard Drinks/Week Comments Yes 0 (1 standard drink = 0.6 oz pure alcoho l) rarely Sex Assigned at Date Recorded Not on file documented as of this encounter Procedure Notes Staci Cohen - 06/01/2005 12:00 AM CSTAssociated Order(s): MRI SC NESS DEVELOPMENT COORDINATOR documented in this encounter Plan of Treatment Not on filedocumented as of this encounter Procedures Procedure Name Priority Date/Time Associated Diagnosis Comme nts MRI SC 06/01/2005 12:00 AM Results for this BUSINESS DEVELOPMENT COORDINATOR procedure are i n the results section. MAGNETIC SOURCE 06/01/2005 Results for this IMAGING procedure are i n the results section. documented in this encounter Results MRI SC (06/01/2005 12:00 AM BUSINESS DEVELOPMENT COORDINATOR) Anatomical Region Laterality Modality Other Narrative 06/01/2005 12:00 AM BUSINESS DEVELOPMENT COORDINATOR This result has an attachment that is no t available. Ordered by an unspecified provider. Transcriptions Staci Cohen - 06/01/2005 12:[address] Physician Unknown DUMMY/OTHER/AR documented in this encounter Visit Diagnoses Not on filedocumented in this encounter Care Teams Director Child Development Center Relationship Specialty Start Date End Date Jose Colin DO PCP - General 12/24/03 09/17/08 [address] [place] [address] documented as of this encounter
--- OUTSIDE RECORDS SUMMARY | 2022-02-06 10:31 | XMS_ITS | Encounter Summary ---
:1965 Author Organization [facility] Address [address], [place] [address] Care Team Providers Name Role Phone MoJose medina Jerrell DO Primary Care Provider [phone] Reason for Referral Specialty Diagnoses / Procedures Referred By Contact Refer red To Contact Yun Flynn MD [address] [place] [address] Referral ID Status Reason Start Date Expiration Date Visits Requ ested Visits Authorized Reason for Visit Reason Comments Period Problems Encounter Details Date Type Department Care Team Description 10/02/2005 Office Visit [facility] Obstetrics and Yun Flynn, EX CESSIVE MENSTRUATION (Primary Dx); Gynecology MD PREVENTIVE CARE EXAM [address] [place] [address] Social History Tobacco Use Types [...] Body Mass Index 32.59 07/13/2005 11:59 AM CUTTING TORCH OPERATOR documented in this encounter Progress Notes 10/02/2005 [...] the same time. Check cholesterol and glucose. GRAIN CLEANER ultrasound with SIS as indicated. Reviewed options. [...] Type Priority Associated Diagnoses Order S chedule PELVIC/GRAIN CLEANER ULTRASOUND Referral Routine Excessive Menstruat ion Ordered: [...] <200 mg/dl [facility] Triglyceride 95 <200 mg/dl [facility] HDL 46 >35 mg/dl [facility] LDL, Calc. 123 mg/dl [facility] Hours Fasting 12 hours [facility] Specimen Anatomical Collection Method Collection Time Receive d Time (Source) Location / / Volume Laterality 10/07/2005 8:33 AM 6 8:34 CDT AM CDT Yun Flynn MD LAB_1 Performing Organization Address City/[facility] Phon e Number [employer] [phone] [facility] [address] [place] [phone] TSH, SENSITIVE (WITH REFLEX) (10/07/2005 8:32 AM CDT) athologist Signature TSH, with 1.80 0.3 - 5.0 [facility] Reflex uIU/ml Specimen Anatomical Collection Method Collection Time Receive d Time (Source) Location / / Volume Laterality 10/07/2005 8:32 AM 6 8:33 CDT AM CDT Yun Flynn MD LAB_1 Performing Organization Address [facility] Phon e Number sifonr [phone] [facility] [address] [place] [phone] (ABNORMAL) GLUCOSE - FASTING > 8 HRS FASTING (V77.1) (10/07/2005 8:31 AM CDT) Analysis Performed At [facility] logist Time Signature Glucose 111 (H) 70 - 100 [facility] mg/dl Hours Fasting 12 hours [facility] Specimen Anatomical Collection Method Collection Time Receive d Time (Source) Location / / Volume Laterality 10/07/2005 8:31 AM 6 8:32 CDT AM CDT Yun Flynn MD LAB_1 Performing Organization Address City/State/ZIP Code Phon e Number [facility] [phone] [facility] [address] [phone] PAP TEST, ROUTINE (10/02/2005 12:00 AM CDT) Component Value Ref Test Analysis Performed At [facility] gist Range Method Time Signature Cytology, Pap (NOTE) [facility] Cytology Report Patient Name: PADMINI CHOI Taken: [...] Signed Out By ? Kelly Elmore MD ([id number]) Rakel Valle, ??CT (ASCP) ?Pap Smear History ?Date of Last Menstrual Period: ? 09/22/05 ?Contraceptive History: ?Not Stated/Unknown ?Other Clinical Conditions: ?LAST PAP: N/A HPV reflex testing requested with interpretation of ASCUS ? Specimen (Source) Anatomical Collection Method Collection Time Re ceived Time Location / / Volume Laterality 10/02/2005 10/06/2005 9:58 AM CDT Yun Flynn MD LAB_1 Performing Organization Address City/[facility] Phon e Number [address] [address] [place], [place] [phone] documented in this encounter Visit Diagnoses Diagnosis Excessive or frequent menstruation - Argelia shelly Routine general medical examination at [facility] Routine general medical examination at a [facility] care facility documented in this encounter Care Teams Cream Cheese Maker Relationship Specialty Start Date End Date Jose Colin DO PCP - General 12/24/03 09/17/08 [address] [place] [address] documented as of this encounter
--- OUTSIDE RECORDS SUMMARY | 2022-02-06 10:31 | XMS_ITS | Encounter Summary ---
:1965 Author Organization [facility] Address [address] [address] Care Team Providers Name Role Phone DungJose gonzalez DO Primary Care Provider [phone] Encounter Details Date Type Department Care Team Description 07/04/2005 Office Visit [facility] Aravind Jose, SOCRATES [place] SYMPPietro Plastic Surgery [facility] [address] Social History Tobacco Use Types Packs/Day Years Used Date Smoking Tobacco: Never Alcohol Use Standard Drinks/Week Comments Yes 0 (1 standard drink = 0.6 oz pure alcoho l) rarely Sex Assigned at Date Recorded Not on file documented as of this encounter Last Filed Vital Signs Vital Sign Reading Time Taken Comments Blood Pressure 125/79 07/04/2005 2:15 PM BLIND AIDE Pulse 77 07/04/2005 2:15 PM BLIND AIDE Temperature - - Respiratory Rate 18 07/04/2005 2:15 PM BLIND AIDE Oxygen Saturation - - Inhaled Oxygen Concentration [...] dominant individual 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 MEDICATIONS: Medications she takes at this time [...] earliest convenience for the patient. P cc: D AIDE documented in this encounter Nursing Notes 07/04/2005 [...] she is still having issues from. Sees Wheel Loader Operator re: this problem. documented in this encounter Plan of Treatment Scheduled Referrals Name Type Priority Associated Diagnoses Order S chedule SURGERY Referral Routine Ganglion Nos Ordered: 2005 documented as of this encounter Visit Diagnoses Diagnosis Other symptoms referable to forearm join t documented in this encounter Care Teams Counselor Manager Relationship Specialty Start Date End Date Jose Colin DO PCP - General 12/24/03 09/17/08 [address] [place] [address] documented as of this encounter
--- OUTSIDE RECORDS SUMMARY | 2022-02-06 10:31 | XMS_ITS | Encounter Summary ---
:1965 Author Organization [facility] Address [address] [address] Care Team Providers Name Role Phone Jose Colin Primary Care Provider [phone] Encounter Details Date Type Department Care Team Description 10/04/2005 Orders Only [facility] Obstetrics and Yun Flynn MD Gynecology [address] [place], [place] [id number] Social History Tobacco Use Types Packs/Day Years [...] patient referred by Dr. Yun Flynn of [place]. TAPE NUMBER: [id number] ULTRASOUND INDICATIONS: [age] -year-old patient last period [...] patient referred by Dr. Yun Flynn of [place]. TAPE NUMBER: [id number] ULTRASOUND INDICATIONS: [age] -year- old patient last [...] on filedocumented in this encounter Care Teams Vamp Cut Out Worker Relationship Specialty Start Date End Date Jose Colin DO PCP - General 12/24/03 09/17/08 [address] [place] [address] documented as of this encounter
--- OUTSIDE RECORDS SUMMARY | 2022-02-06 10:31 | XMS_ITS | Encounter Summary ---
:1965 Author Organization [facility] Address [address], [place] [address] Care Team Providers Name Role Phone Jose Colin DO Primary Care Provider [phone] Encounter Details Date Type Department Care [...] Nicholas Shahid, Provider - 05/25/2005 12:00 AM REMOTE RECRUITER documented in this encounter Plan of Treatment Not on filedocumented as of this encounter Visit Diagnoses Not on filedocumented in this encounter Care Teams Depot Manager Relationship Specialty Start Date End Date Jose Colin DO PCP - General 12/24/03 09/17/08 [address] [place] [address] documented as of this encounter
--- OUTSIDE RECORDS SUMMARY | 2022-02-06 10:31 | XMS_ITS | Encounter Summary ---
:1965 Author Organization [facility] Address [address] [place] [address] Care Team Providers Name Role Phone Jose Colin DO Primary Care Provider [phone] Reason for Visit Reason Comments RESULTS, TEST Labs. Consult from Dr. Cotto er Encounter Details Date Type Department Care Team Description 10/20/2005 Office Visit [facility] Internal MARLA Colin FA STING GLUCOSE (Primary Dx); Medicine Jose Allan DO INSOMNIA NOS [address] [facility] [address] [place] [address] [place], [place] [phone] [address] Social History Tobacco Use Types Packs/Day [...] unspecified documented in this encounter Care Teams Plastic Hospital Products Assembler Relationship Specialty Start Date End Date Jose Colin DO PCP - General 12/24/03 09/17/08 [address] [place] [address] documented as of this encounter
--- OUTSIDE RECORDS SUMMARY | 2022-02-06 10:31 | XMS_ITS | Encounter Summary ---
:1965 Author Organization [facility] Address [address] [place] [address] Care Team Providers Name Role Phone DixieJose Jerrell BOOGIE Primary Care Provider [phone] Reason for Visit Reason Comments INFECTION, FINGER swollen and painful x 2 days Encounter Details Date Type Department Care Team Description 08/26/2005 Office Visit [facility] ONYCHIA OF FINGER ([place]) [address] [place], [place] [address] Social History Tobacco Use [...] - - Pulse 76 08/26/2005 10:45 AM HARDWARE MANAGER Temperature 36.8 ??C (98.2 ??F) 08/26/2005 10:45 AM HARDWARE MANAGER Respiratory Rate 14 08/26/2005 10:45 AM HARDWARE MANAGER Oxygen Saturation - - Inhaled Oxygen Concentration - - Weight - - Height - - Body Mass Index - - documented in this encounter Progress Notes 08/26/2005 10:45 AM HARDWARE MANAGER This Urgent Care encounter note has been [...] one week's time if unimproved. P cc: WARE MANAGER documented in this encounter Plan of Treatment Not on filedocumented as of this encounter Visit Diagnoses Diagnosis Onychia and paronychia of finger - Prima ry documented in this encounter Care Teams Cat Operator Relationship Specialty Start Date End Date Jose Colin DO PCP - General 12/24/03 09/17/08 [address] [place] [address] documented as of this encounter
--- OUTSIDE RECORDS SUMMARY | 2022-02-06 10:31 | XMS_ITS | Encounter Summary ---
:1965 Author Organization [facility] Address [address], [place] [address] Care Team Providers Name Role Phone Jose Colin DO Primary Care Provider [phone] Encounter Details Date Type Department Care Team Description 07/04/2005 Correspondence [facility] Aravind Jose MD INFORMED CONSENT Plastic Surgery [address] [place] [address] Social History Tobacco Use Types Packs/Day Years Used Date Smoking Tobacco: Never Alcohol Use Standard Drinks/Week Comments Yes 0 (1 standard drink = 0.6 oz pure alcoho l) rarely Sex Assigned at Date Recorded Not on file documented as of this encounter Progress Notes Aravind Jose - 07/04/2005 12:00 AM NEUROPHYSIOLOGICAL TECHNICIAN OPHYSIOLOGICAL TECHNICIAN documented in this encounter Plan of Treatment Not on filedocumented as of this encounter Visit Diagnoses Not on filedocumented in this encounter Care Teams Director Learning And Development Relationship Specialty Start Date End Date Jose Colin DO PCP - General 12/24/03 09/17/[address] [place] [place] [address] documented as of this encounter
--- OUTSIDE RECORDS SUMMARY | 2022-02-06 10:31 | XMS_ITS | Encounter Summary ---
:1965 Author [facility] Address [address] [place] [address] Care Team Providers Name Role Phone Jose Colin DO Primary Care Provider [phone] Reason for Visit Reason Onset Date Comments Other 10/23/2005 Encounter Details Date Type Department Care Team Description 10/23/2005 Telephone [facility] Obstetrics a ne Gynecology Yun Flynn MD Other [address] [place], [place] [phone] Social History Tobacco Use Types Packs/Day Years [...] has been sched for 11/07/05 8 30 [facility] pt will sched preop post- op is [...] on filedocumented in this encounter Care Teams Rehabilitation Director Relationship Specialty Start Date End Date Jose Colin, PCP - General 12/24/03 09/17/08 [address] [place] [address] documented as of this encounter
--- OUTSIDE RECORDS SUMMARY | 2022-02-06 10:31 | XMS_ITS | Encounter Summary ---
:1965 Author Organization [facility] Address [address], [place] [address] Care Team Providers Name Role Phone Jose Colin DO Primary Care Provider [phone] Encounter Details Date Type Department Care Team Description 10/04/2005 Office Visit [facility] research engineer marine equipment Ultra sound IRREGULAR MENSTRUATION; [address] [facility] [place] [address] Social History Tobacco Use Types Packs/Day Years [...] uteri documented in this encounter Care Teams Piston Maker Relationship Specialty Start Date End Date Jose Colin DO PCP - General 12/24/03 09/17/08 [address] [place] [address] documented as of this encounter
--- OUTSIDE RECORDS SUMMARY | 2022-02-06 10:31 | XMS_ITS | Encounter Summary ---
:1965 Author Organization [facility] Address [address], [place] [address] Care Team Providers Name Role Phone Jose Colin DO Primary Care Provider [phone] Reason for Visit Reason Onset Date Comments Sooner Appointment 10/05/2005 Encounter Details Date Type Department Care Team Description 10/05/2005 Telephone [facility] Obstetrics and Yun Flynn MD Sooner Appointment Gynecology [address] [place], [place] [phone] Social History Tobacco Use Types Packs/Day Years Used Date Smoking Tobacco: Never Alcohol Use Standard Drinks/Week Comments Yes 0 (1 standard drink = 0.6 oz pure alcoho l) rarely Sex Assigned at Date Recorded Not on file documented as of this encounter Nursing Notes 10/05/2005 11:59 PM CDT >> RACHEL VANEGAS [facility] Oct 05, 2005 1:35 PM pt given appt. for f/u 10/16/05 8:45 dr avani Vanegas LPN 1:34 PM >> ANGELA MARTINEZ [facility] Oct 05, 2005 8:12 AM Pt. had an U/S appt. 10/04/05. Needs to sched. f/u appt. 1st avail. mid to end of October. Please advi se. documented in this encounter Plan of Treatment Not on filedocumented as of this encounter Visit Diagnoses Not on filedocumented in this encounter Care Teams Commercial Loan Administrator Relationship Specialty Start Date End Date Jose Colin DO PCP - General 12/24/03 09/17/08 [address] [place] [address] documented as of this encounter
--- OUTSIDE RECORDS SUMMARY | 2022-02-06 10:31 | XMS_ITS | Encounter Summary ---
:1965 Author Organization [facility] Address [address] [place] [address] Care Team Providers Name Role Phone Jose Colin DO Primary Care Provider [phone] Encounter Details Date Type Department Care Team Description 10/31/2005 Notes/Orders [facility] Internal [place], PREOP EXAM OTHER Medicine Jose Allan DO SPECIFIED 205 [facility] [address] [place] [address] [place], [place] [phone] Social History Tobacco Use Types Packs/Day [...] TUBE & HOLD (10/31/2005 4:11 PM CDT) [facility] gist Method Time Signature Draw and Hold Specimen [facility] Available Based on Sample Stability Specimen Anatomical Collection Method Collection Time Receive d Time (Source) Location / / Volume Laterality 10/31/2005 4:11 PM 6 4:12 CDT PM CDT Jose Colin DO LAB_1 Performing Organization Address [facility] Phon e Number [facility] [phone] [facility] [address] [place] [phone] HEMOGRAM/PLTS/DIFF (10/31/2005 4:11 PM CDT) P athologist Signature WBC 7.7 4.0 - 11.0 [facility] k/ul RBC 4.27 4.0 - 5.2 [facility] M/ul Hemoglobin 13.2 12.0 - [facility] 16.0 g/dl HCT 37.8 36.0 - [facility] 46.0 % MCV 88.5 80 - 100 [facility] fl MCH 30.9 26 - 34 pg [facility] MCHC 34.9 32 - 36 % [facility] RDW 13.7 11.5 - [facility] 14.5 % Platelets 241 150 - 450 [facility] k/ul PMN/Band 56 43 - 72 % [facility] Lymph 34 17 - 43 % [facility] Lumpkin 7 4 - 12 % [facility] Eos 2 0 - 8 % [facility] Baso 1 0 - 1 % [facility] Neutrophil 4.3 1.8 - 7.7 [facility] Absolute k/ul Lymph Absolute 2.7 1.0 - 4.8 [facility] k/ul [place]kin Absolute 0.6 0.1 - 0.7 [facility] k/ul Eos Absolute 0.2 0.0 - 0.5 [facility] k/ul Baso Absolute 0.1 0.0 - 0.2 [facility] k/ul Specimen Anatomical Collection Method Collection Time Receive d Time (Source) Location / / Volume Laterality 10/31/2005 4:11 PM 6 4:12 CDT PM CDT Jose Allan Nickikatherine DO LAB_1 Performing Organization Address [facility] Phon e Number [facility] [phone] [facility] [address] [place] [phone] documented in this encounter Visit Diagnoses Diagnosis Other specified pre-operative examinatio n documented in this encounter Care Teams Men'S Garment Fitter Relationship Specialty Start Date End Date Cytrynowicz, Jose D, DO PCP - General 12/24/03 09/17/08 [address] [place] [address] documented as of this encounter
--- OUTSIDE RECORDS SUMMARY | 2022-02-06 10:31 | XMS_ITS | Encounter Summary ---
:1965 Author Organization [facility] Address [address] [place] [address] Care Team Providers Name Role Phone Jose Stack DO Primary Care Provider [phone] Reason for Referral Specialty Diagnoses / Procedures Referred By Contact Refer red To Contact Jose Stack DO [address] [facility] [place] [address] Referral ID Status Reason Start Date Expiration Date Visits Requ ested Visits Authorized COVERER Specialty Diagnoses / Procedures Referred By Contact Refer red To Contact Jose Stack DO [address] [place], [place] [address] Referral ID Status Reason Start Date Expiration Date Visits Requ ested Visits Authorized COVERER Reason for Visit Reason Comments BACK PAIN f/u visit Encounter Details Date Type Department Care Team Description 06/16/2005 Office Visit [facility] Internal [place], PAIN IN MUSTAFA B (Primary Dx); Medicine Jose Allan DO VACCINE FOR TETANUS + DIPHTHERIA; 205 [facility] 599 [facility] GANGLION NOS; [place] [address] [place] FX FOOT BONE NOS-CLOSED [phone] [address] Social History Tobacco Use Types Packs/Day Years Used Date Smoking Tobacco: Never Alcohol Use Standard Drinks/Week Comments Yes 0 (1 standard drink = 0.6 oz pure alcoho l) rarely Sex Assigned at Date Recorded Not on file documented as of this encounter Last Filed Vital Signs Vital Sign Reading Time Taken Comments Blood Pressure 112/74 06/16/2005 1:47 PM HEEL COVERER Pulse 60 06/16/2005 1:47 PM HEEL COVERER Temperature - - Respiratory Rate 16 06/16/2005 1:47 PM HEEL COVERER Oxygen Saturation - - Inhaled Oxygen Concentration - - Weight 82.1 kg (181 lb) 06/16/2005 1:47 PM HEEL COVERER Height 160 cm (5' 3) 06/16/2005 1:47 PM HEEL COVERER Body Mass Index 32.06 06/16/2005 1:47 PM HEEL COVERER documented in this encounter Patient Instructions Patient Zmnofelojvxv21/06/2006 1:20 PM HEEL COVERER PLEASE STOP AT CHECK OUT DESK BEFORE LEAVING THE CLINIC Schedule Appointment with the Specialist using the phone number provided Stop by Radiology for X-ray documented in this encounter Progress Notes 06/16/2005 1:20 PM HEEL COVERER Quick Note by: JOSE STACK on 06/20/05 [...] foot injury - this summer; discussed at [facility]; may be causing back/leg pain; will get xrays and have her make appt with PODIATRY 3) ganglion cyst - painful with use; refer to GEN SURG Total time spent with the patient today was 26 minutes. Of this time, 20 minutes were spent counseling her on the above issues and coordinating her care. Jsoe Stack DO 2:04 PM 06/16/2005 documented in [...] A cc: Jose Stack DO Radiology SP COVERER documented in this encounter Plan of Treatment [...] toes) documented in this encounter Care Teams Intellectual Property Legal Assistant Relationship Specialty Start Date End Date Jose Stack DO PCP - General 7/15/04 4/9/09 [address] [place] [address] documented as of this encounter
--- OUTSIDE RECORDS SUMMARY | 2022-02-06 10:31 | XMS_ITS | Encounter Summary ---
:1965 Author [facility] Address [address] [place] [address] Care Team Providers Name Role Phone Jose Colin DO Primary Care Provider [phone] Reason for Visit Reason Onset Date Comments RESULTS, TEST 06/06/2005 Encounter Details Date Type Department Care Team Description 06/06/2005 Telephone [facility] Jose Witt, RESULTS, TEST [address] [place] [address] 743 [facility] [phone] [place] [address] (Wo rk) Social History Tobacco Use Types Packs/Day Years Used Date Smoking Tobacco: Never Alcohol Use Standard Drinks/Week Comments Yes 0 (1 standard drink = 0.6 oz pure alcoho l) rarely Sex Assigned at Date Recorded Not on file documented as of this encounter Nursing Notes 06/06/2005 11:59 PM ELECTRICAL CALIBRATOR >> BRIGIDO ROGERS [facility] Jun 09, 2005 8:18 AM Pt notified [...] back since Sunday. Can be reached at [phone] until 3:30 today. >> BOB S RENEE jeramie Jun 06, 2005 9:42 AM Pt had mri done @ [facility] & would like results. documented in this encounter Plan of Treatment Not on filedocumented as of this encounter Visit Diagnoses Not on filedocumented in this encounter Care Teams Spinning Lathe Operator Relationship Specialty Start Date End Date Jose Colin, PCP - General 12/24/03 09/17/08 [address] [place] [address] documented as of this encounter
--- OUTSIDE RECORDS SUMMARY | 2022-02-06 10:31 | XMS_ITS | Encounter Summary ---
:1965 Author Organization [facility] Address [address], [place] [address] Care Team Providers Name Role Phone Jose Colin DO Primary Care Provider [phone] Reason for Visit Reason Onset Date Comments RESULTS, TEST 09/26/2004 opened in error Encounter Details Date Type Department Care Team Description 09/23/2004 Telephone [facility] Internal Dungryramon, RESULTS, TE ST (opened Medicine Jose Allan DO in error) 205 [facility] [address] [place] [address] [place], [place] [phone] Social History Tobacco Use Types Packs/Day [...] on filedocumented in this encounter Care Teams Associate Professor Of Anthropology Relationship Specialty Start Date End Date Jose Colin DO PCP - General 12/24/03 09/17/08 [address] [place] [address] documented as of this encounter
--- OUTSIDE RECORDS SUMMARY | 2022-02-06 10:31 | XMS_ITS | Encounter Summary ---
:1965 Author Organization [facility] Address [address], [place] [address] Care Team Providers Name Role Phone Jose Colin DO Primary Care Provider [phone] Encounter Details Date Type Department Care Team Description 11/14/2004 Correspondence External to Jose Colin OW-UP EVALUATION0/ D, DO [facility] [address] [place] [address] (Wo rk) Social History Tobacco [...] on filedocumented in this encounter Care Teams Patrol Police Lieutenant Relationship Specialty Start Date End Date Jose Colin, DO PCP - General 12/24/03 09/17/08 [address] [place] [address] documented as of this encounter
--- OUTSIDE RECORDS SUMMARY | 2022-02-06 10:32 | XMS_ITS | Encounter Summary ---
:1965 Author Organization [facility] Address [address] [place] [address] Care Team Providers Name Role Phone DixieJose Jerrell BOOGIE Primary Care Provider [phone] Reason for Visit Reason Comments NECK PAIN BACK PAIN Encounter Details Date Type Department Care Team Description 04/27/2004 Office Visit [facility] Que Urban BRACHIAL N EURITIS Practice NOS(CERVICAL 205 [facility] [address] RADICULOPATHY ([place] [address] [place], [place] Dx) [phone] Social History Tobacco Use Types Packs/Day Years Used Date Smoking Tobacco: Never Alcohol Use Standard Drinks/Week Comments Not Asked 0 (1 standard drink = 0.6 oz pure alcoho l) Sex Assigned at Date Recorded Not on file documented as of this encounter Last Filed Vital Signs Vital Sign Reading Time Taken Comments Blood Pressure 118/64 04/27/2004 1:11 PM ROBOTIC WELD TECHNICIAN Pulse - - Temperature 37.2 ??C (98.9 ??F) 04/27/2004 1:11 PM ROBOTIC WELD TECHNICIAN Respiratory Rate - - Oxygen Saturation - - Inhaled Oxygen Concentration - - Weight - - Height - - Body Mass Index - - documented in this encounter Progress Notes 04/27/2004 1:20 PM ROBOTIC WELD TECHNICIAN This office note has been dictated Que [...] right elbow and wrist. There is strong youth career specialist strength in the right hand. ASSESSMENT: Cervical [...] problems she should follow up. P cc: TIC WELD TECHNICIAN documented in this encounter Plan of Treatment Not on filedocumented as of this encounter Visit Diagnoses Diagnosis Brachial neuritis or radiculitis NOS - P rimary Brachial neuritis or radiculitis nos documented in this encounter Care Teams Crane Engineer Relationship Specialty Start Date End Date Jose Colin DO PCP - General 12/24/03 09/17/08 [address] [place] [address] documented as of this encounter
--- OUTSIDE RECORDS SUMMARY | 2022-02-06 10:32 | XMS_ITS | Encounter Summary ---
:1965 Author Organization [facility] Address [address] [place] [address] Care Team Providers Name Role Phone Jose Colin DO Primary Care Provider Encounter Details Date Type Department Care Team Description 04/08/2004 Office Visit [facility] Internal Jose Colin DERM ATITIS NOS; Medicine D, DO SCIATICA(ACUTE); 205 [facility] [address] [place] [address] [place], [place] [phone] [address] (Wo rk) Social History Tobacco Use [...] Body Mass Index 31.09 09/02/2002 2:00 PM WET WASHER MACHINE documented in this encounter Progress Notes 04/08/2004 [...] Status reviewed? (see History Social-Substance) -YES NEVER board attendant offered? -NOT APPLICABLE. Aspirin taken daily? -NO BP was taken on the LEFT arm. BP cuff size used? -Adult Regular Health Education given? -NO. Contact phone number [phone] (home) [phone] (work), alternate phone number- Schuyler Kilgore MONSE [...] reflux documented in this encounter Care Teams Hyperbaric Welder Diver Relationship Specialty Start Date End Date Jose Colin, DO PCP - General 12/24/03 09/17/08 [address] [place] [address] documented as of this encounter
--- OUTSIDE RECORDS SUMMARY | 2022-02-06 10:32 | XMS_ITS | Encounter Summary ---
:1965 Author [facility] Address [address] [address] Care Team Providers Name Role Phone Jose Colin DO Primary Care Provider [phone] Encounter Details Date Type Department Care Team Description 04/21/2004 Notes/Orders [facility] Internal Dixie, DERMATITIS NOS Medicine Jose Allan DO (Primary Dx) 205 [facility] [address] [place] [address] [place], [place] [phone] [address] Social History Tobacco Use Types Packs/Day [...] documented in this encounter Care Teams Ticket Machine Operator Relationship Specialty Start Date End Date Jose Colin DO PCP - General 12/24/03 09/17/08 [address] [place] [address] documented as of this encounter
--- OUTSIDE RECORDS SUMMARY | 2022-02-06 10:32 | XMS_ITS | Encounter Summary ---
:1965 Author Organization [facility] Address [address], [place] [address] Care Team Providers Name Role Phone Greyson Gonzalez MD Primary Care Provider Encounter Details Date Type Department Care Team Description 09/16/2002 Telephone [facility] Greyson Romero MD 205 [facility] [address] [place] [address] [place], [place] [phone] (Wo rk) Social History Tobacco Use Types [...] on filedocumented in this encounter Care Teams Club Concierge Relationship Specialty Start Date End Date Greyson Gonzalez MD PCP - General 04/15/01 12/23/03 [address] [place], [place] [address] documented as of this encounter
--- OUTSIDE RECORDS SUMMARY | 2022-02-06 10:32 | XMS_ITS | Encounter Summary ---
:1965 Author Organization [facility] Address [address] [address] Care Team Providers Name Role Phone Jose Colin DO Primary Care Provider [phone] Encounter Details Date Type Department Care Team Description 07/15/2004 Orders Only [facility] Unknown, Physician 640 [facility] [address] [place] [address] [place] [address] [phone] (Wo rk) Social History Tobacco Use Types [...] SC 07/15/2004 12:00 AM Results for this PAYROLL SERVICES ANALYST procedure are i n the results section. MAGNETIC SOURCE 07/15/2004 Results for this IMAGING procedure are i n the results section. documented in this encounter Results MRI SC (07/15/2004 12:00 AM PAYROLL SERVICES ANALYST) Anatomical Region Laterality Modality Other Narrative 07/15/2004 12:00 AM PAYROLL SERVICES ANALYST This result has an attachment that is no t available. Ordered by an unspecified provider. Transcriptions Unknown, Physician - 07/15/2004 12:00 AM PAYROLL SERVICES ANALYST Physician Unknown DUMMY/OTHER/AR documented in this encounter Visit Diagnoses Not on filedocumented in this encounter Care Teams Capacitor Repairer Relationship Specialty Start Date End Date Jose Colin, PCP - General 7/15/04 4/9/09 [address] [place] [address] documented as of this encounter
--- OUTSIDE RECORDS SUMMARY | 2022-02-06 10:32 | XMS_ITS | Encounter Summary ---
:1965 Author Organization [facility] Address [address] [place] [address] Care Team Providers Name Role Phone Greyson Gonzalez MD Primary Care Provider Encounter Details Date Type Department Care Team Description 05/15/2003 Office Visit [facility] Mammogram I, Sp S CREENING MAMM-MAILG Mammography NEOPL-OTHER (Primary [address] [facility] Dx) [place] [address] Social History Tobacco Use Types [...] 10:42 A cc: AUDREY Moffett Radiology SP INIST documented in this encounter Plan of Treatment [...] cc: AUDREY Moffett Radiology SP Blank Perez CORN LAB TECHNICIAN, BOX TOE FLANGER STITCHDOWNS RAD_BI documented in this encounter Visit Diagnoses Diagnosis Other screening mammogram - Primary documented in this encounter Care Teams Chemist Intern Relationship Specialty Start Date End Date Greyson Gonzalez MD PCP - General 04/15/01 12/23/03 [address] [place] [address] documented as of this encounter
--- OUTSIDE RECORDS SUMMARY | 2022-02-06 10:32 | XMS_ITS | Encounter Summary ---
:1965 Author Organization [facility] Address [address] [place] [address] Care Team Providers Name Role Phone Jose Colin DO Primary Care Provider Encounter Details Date Type Department Care Team Description 04/27/2004 Correspondence None Unknown, Physici an [facility]LEASE [address] [place], [place] [address] (Wo rk) Social History Tobacco Use Types Packs/Day Years Used Date Smoking Tobacco: Never Alcohol Use Standard Drinks/Week Comments Not Asked 0 (1 standard drink = 0.6 oz pure alcoho l) Sex Assigned at Date Recorded Not on file documented as of this encounter Progress Notes Unknown, Physician - 04/27/2004 12:00 AM COPRA PROCESSOR documented in this encounter Plan of Treatment Not on filedocumented as of this encounter Visit Diagnoses Not on filedocumented in this encounter Care Teams Entry Level Accountant Relationship Specialty Start Date End Date Jose Colin DO PCP - General 12/24/03 09/17/[address] [place] [address] [place] [address] documented as of this encounter
--- OUTSIDE RECORDS SUMMARY | 2022-02-06 10:32 | XMS_ITS | Encounter Summary ---
:1965 [facility] Address [address] [place] [address] Care Team Providers Name Role Phone Greyson Gonzalez MD Primary Care Provider Encounter Details Date Type Department Care Team Description 09/08/2002 Orders Only [facility] Blank Perez APRN, DIRECTOR AUDIENCE MARKETING 205 [facility] [address] [place] [address] [place] [address] (Wo rk) Social History Tobacco [...] PM Re sults for this 12 HOUR INSTRUCTOR MILITARY SCIENCE procedure are i n the results section. documented in this encounter Results (ABNORMAL) CHOLESTEROL LIPID PANEL FAST >12HR FAST (09/08/2002 4:51 PM INSTRUCTOR MILITARY SCIENCE) P athologist Signature Cholesterol 152 <200 mg/dl [facility] Triglyceride 82 <200 mg/dl [facility] HDL 34 (L) >35 mg/dl [facility] LDL, Calc. 102 mg/dl [facility] Hours Fasting 12 hours [facility] Specimen Anatomical Collection Method Collection Time Receive d Time (Source) Location / / Volume Laterality 09/08/2002 4:51 PM 3 4:51 INSTRUCTOR MILITARY SCIENCE PM INSTRUCTOR MILITARY SCIENCE Blank Perez APRN, DIRECTOR AUDIENCE MARKETING LAB_1 Performing Organization Address City/State/ZIP Code Phon e Number [facility] [phone] [facility] [address] [address] documented in this encounter Visit Diagnoses Not on filedocumented in this encounter Care Teams After School Driver Relationship Specialty Start Date End Date Greyson Gonzalez MD PCP - General 04/15/01 12/23/03 [address] [place], [place] [phone] documented as of this encounter
--- OUTSIDE RECORDS SUMMARY | 2022-02-06 10:32 | XMS_ITS | Encounter Summary ---
:1965 Author Organization [facility] Address [address] [place] [address] Care Team Providers Name Role Phone Greyson Gonzalez MD Primary Care Provider Encounter Details Date Type Department Care Team Description 09/11/2002 Correspondence None Unknown, Physici an [facility] [address] [place], [place] [address] (Wo rk) Social History Tobacco Use Types Packs/Day Years Used Date Smoking Tobacco: Never Alcohol Use Standard Drinks/Week Comments Not Asked 0 (1 standard drink = 0.6 oz pure alcoho l) Sex Assigned at Date Recorded Not on file documented as of this encounter Progress Notes Unknown, Physician - 09/11/2002 12:00 AM MALT HOUSE OPERATOR documented in this encounter Plan of Treatment Not on filedocumented as of this encounter Visit Diagnoses Not on filedocumented in this encounter Care Teams Shift Coordinator Relationship Specialty Start Date End Date Greyson Gonzalez MD PCP - General 04/15/01 12/23/03 [address] [place], [place] [phone] documented as of this encounter
--- OUTSIDE RECORDS SUMMARY | 2022-02-06 10:32 | XMS_ITS | Encounter Summary ---
:1965 Author Organization [facility] Address [address] [place] [address] Care Team Providers Name Role Phone Jose Colin DO Primary Care Provider [phone] Reason for Referral Specialty Diagnoses / Procedures Referred By Contact Refer red To Contact Jose Colin DO [address] [place], [place] [phone] Referral ID Status Reason Start Date Expiration Date Visits Requ ested Visits Authorized ION BLOCK CLERK Reason for Visit Reason Comments LEG PAIN f/u left leg Encounter Details Date Type Department Care Team Description 07/12/2004 Office Visit [facility] Internal Dixie SCIATICA(AC ONONDAGA) Medicine Jose Allan DO (Primary Dx) 205 [facility] 599 [place] [address] [place] [phone] [address] Social History Tobacco Use Types Packs/Day Years Used Date Smoking Tobacco: Never Alcohol Use Standard Drinks/Week Comments Not Asked 0 (1 standard drink = 0.6 oz pure alcoho l) Sex Assigned at Date Recorded Not on file documented as of this encounter Last Filed Vital Signs Vital Sign Reading Time Taken Comments Blood Pressure 100/60 07/12/2004 3:22 PM AUCTION BLOCK CLERK Pulse 60 07/12/2004 3:22 PM AUCTION BLOCK CLERK Temperature 36.9 ??C (98.4 ??F) 07/12/2004 3:22 PM AUCTION BLOCK CLERK Respiratory Rate 16 07/12/2004 3:22 PM AUCTION BLOCK CLERK Oxygen Saturation - - Inhaled Oxygen Concentration - - Weight 78.1 kg (172 lb 3.2 oz) 07/12/2004 3:22 PM AUCTION BLOCK CLERK Height - - Body Mass Index 31.5 09/02/2002 2:00 PM AUCTION BLOCK CLERK documented in this encounter Patient Instructions Patient Erpqfeiocrjj15/01/2005 3:20 PM AUCTION BLOCK CLERK Stop by the Referral [place] to schedule referral appointment. Continue Naprosyn and Vicodin as needed Call 2 to 3 days after MRI for next step documented in this encounter Progress Notes 07/12/2004 3:20 PM AUCTION BLOCK CLERK SUBJECTIVE: Megan Choi is a 39 yr [...] Sciatica documented in this encounter Care Teams Lath Hand Relationship Specialty Start Date End Date Jose Colin DO PCP - General 12/24/03 09/17/08 [address] [place] [address] documented as of this encounter
--- OUTSIDE RECORDS SUMMARY | 2022-02-06 10:32 | XMS_ITS | Encounter Summary ---
:1965 Author Organization [facility] Address [address], [place] [address] Care Team Providers Name Role Phone Greyson Gonzalez MD Primary Care Provider Encounter Details Date Type Department Care Team Description 09/11/2002 Office Visit [facility] Internal Med Greyson Romero MD 205 [facility] [address] [place] [address] [place], [place] [phone] (Wo rk) Social History Tobacco Use Types Packs/Day Years Used Date Smoking Tobacco: Never Alcohol Use Standard Drinks/Week Comments Not Asked 0 (1 standard drink = 0.6 oz pure alcoho l) Sex Assigned at Date Recorded Not on file documented as of this encounter Progress Notes Greyson Gonzalez - 09/11/2002 12:00 AM LABOUR MARKET ECONOMIST UR MARKET ECONOMIST documented in this encounter Plan of Treatment Not on filedocumented as of this encounter Visit Diagnoses Not on filedocumented in this encounter Care Teams Professor Of Geography Relationship Specialty Start Date End Date Greyson Gonzalez MD PCP - General 04/15/01 12/23/03 [address] [place], [place] [phone] documented as of this encounter
--- OUTSIDE RECORDS SUMMARY | 2022-02-06 10:32 | XMS_ITS | Encounter Summary ---
:1965 [facility] Address [address] [place] [address] Care Team Providers Name Role Phone Greyson Gonzalez MD Primary Care Provider Encounter Details Date Type Department Care Team Description 11/18/2003 Office Visit [facility] Optometry Dafne Kyle EYE & VISION EXAMINATION; April, JAZMIN MYOPIA; [address] Jaime ASTIGMATISM NOS; [place], [place] [address] [place] Social History Tobacco Use Types Packs/Day [...] Presbyopia documented in this encounter Care Teams Zoogler Relationship Specialty Start Date End Date Greyson Gonzalez MD PCP - General 04/15/01 12/23/03 [address] [place] [address] documented as of this encounter
--- OUTSIDE RECORDS SUMMARY | 2022-02-06 10:32 | XMS_ITS | Encounter Summary ---
:1965 [facility] Address [address], [place] [address] Care Team Providers Name Role Phone Jose Colin DO Primary Care Provider [phone] Reason for Referral Specialty Diagnoses / Procedures Referred By Contact Refer red To Contact Jose Colin DO [address] [place], [place] [address] Referral ID Status Reason Start Date Expiration Date Visits Requ ested Visits Authorized CONDUCTOR Encounter Details Date Type Department Care Team Description 07/18/2004 Notes/Orders [facility] Internal REMBERTO Colin BACK PA IN(ACUTE)<6 Medicine Jose Allan DO WEEKS (Primary Dx) 205 [facility] [address] [place] [address] [place], [place] [phone] [address] Social History Tobacco Use Types Packs/Day [...] Primary documented in this encounter Care Teams Heating And Refrigeration Inspector Relationship Specialty Start Date End Date Jose Colin DO PCP - General 12/24/03 09/17/08 [address] [place] [address] documented as of this encounter
--- OUTSIDE RECORDS SUMMARY | 2022-02-06 10:32 | XMS_ITS | Encounter Summary ---
:1965 Author Organization [facility] Address [address] [place] [address] Care Team Providers Name Role Phone Greyson Gonzalez MD Primary Care Provider Encounter Details Date Type Department Care Team Description 09/12/2002 Office Visit [facility] Internal Greyson Gonzalez, JOINT PAIN-SHLDER (Primary Dx); Medicine PAIN IN LIMB 205 [facility] [address] [place] [address] [place], [place] [phone] Social History Tobacco Use Types Packs/Day Years Used Date Smoking Tobacco: Never Alcohol Use Standard Drinks/Week Comments Not Asked 0 (1 standard drink = 0.6 oz pure alcoho l) Sex Assigned at Date Recorded Not on file documented as of this encounter Last Filed Vital Signs Vital Sign Reading Time Taken Comments Blood Pressure 108/60 09/12/2002 4:20 PM FOIL CUTTER Pulse 66 09/12/2002 4:20 PM FOIL CUTTER Temperature - - Respiratory Rate 16 09/12/2002 4:20 PM FOIL CUTTER Oxygen Saturation - - Inhaled Oxygen Concentration - - Weight 69.9 kg (154 lb) 09/12/2002 4:20 PM FOIL CUTTER Height - - Body Mass Index 28.17 09/02/2002 2:00 PM FOIL CUTTER documented in this encounter Progress Notes 09/12/2002 4:20 PM FOIL CUTTER Megan Choi is here today for f/u R shoulder pain. Had steroid inj. only provided minimal relief for a few days, per pt. Are you having other pain today, that you want to discuss with the provider? -{PAIN YES/NO:94283} Preventive Services up to date? -{YES/NO NEEDS:31003} Immunizations up to date? -{YES/NO,NEEDS:44854} Do you ever feel physically threatened or emotionally afraid? -NO Tobacco Status reviewed? (see History Social-Substance) -YES luggage attendant offered? -NOT APPLICABLE. Aspirin taken daily? -NO BP was taken on the RIGHT arm. Large cuff used? -NO Health Education given? -{YES/NO:24464}. Contact phone number [phone] (home) [phone] (work), alternate phone number . Esmerjose Berger [...] RIGHT SHOULDER AND UPPER EXTREMITY PAIN cc: CUTTER documented in this encounter Procedure Notes Claritaclaritaloraine [...] limb documented in this encounter Care Teams Poke In Relationship Specialty Start Date End Date Greyson Gonzalez MD PCP - General 04/15/01 12/23/03 [address] [place] [address] documented as of this encounter
--- OUTSIDE RECORDS SUMMARY | 2022-02-06 10:32 | XMS_ITS | Encounter Summary ---
:1965 [facility] Address [address] [place] [address] Care Team Providers Name Role Phone Jose Colin DO Primary Care Provider [phone] Reason for Visit Reason Onset Date Comments RESULTS, TEST 07/18/2004 Encounter Details Date Type Department Care Team Description 07/18/2004 Telephone [facility] Internal Med Brigido Burton RN RESULTS, TEST 205 [place] [address] [address] [place] [phone] [place], [place] [address] Social History Tobacco Use Types Packs/Day Years Used Date Smoking Tobacco: Never Alcohol Use Standard Drinks/Week Comments Not Asked 0 (1 standard drink = 0.6 oz pure alcoho l) Sex Assigned at Date Recorded Not on file documented as of this encounter Nursing Notes 07/18/2004 11:59 PM PROJECT DEVELOPMENT DIRECTOR >> MICHAEL HALE Mon Jul 18, 2004 [...] on filedocumented in this encounter Care Teams Carpet Sewer Relationship Specialty Start Date End Date Jose Colin DO PCP - General 12/24/03 09/17/08 [address] [place] [address] documented as of this encounter
--- OUTSIDE RECORDS SUMMARY | 2022-02-06 10:32 | XMS_ITS | Encounter Summary ---
:1965 Author Organization [facility] Address [address] [place] [address] Care Team Providers Name Role Phone Dungjosé antonioelbaJose medina Jerrell BOOGIE Primary Care Provider [phone] Reason for Visit Reason Comments LEG PAIN numb MOLE Encounter Details Date Type Department Care Team Description 06/20/2004 Office Visit [facility] Chris Smalls MD SCIATICA( ACUTE) Practice (Primary Dx) [address] [place] [address] Social History Tobacco Use Types Packs/Day Years Used Date Smoking Tobacco: Never Alcohol Use Standard Drinks/Week Comments Not Asked 0 (1 standard drink = 0.6 oz pure alcoho l) Sex Assigned at Date Recorded Not on file documented as of this encounter Last Filed Vital Signs Vital Sign Reading Time Taken Comments Blood Pressure 100/60 06/20/2004 2:38 PM TAX SERVICES SPECIALIST Pulse 72 06/20/2004 2:38 PM TAX SERVICES SPECIALIST Temperature 36.7 ??C (98.1 ??F) 06/20/2004 2:38 PM TAX SERVICES SPECIALIST Respiratory Rate 20 06/20/2004 2:38 PM TAX SERVICES SPECIALIST Oxygen Saturation - - Inhaled Oxygen Concentration - - Weight - - Height - - Body Mass Index - - documented in this encounter Progress Notes 06/20/2004 2:40 PM TAX SERVICES SPECIALIST This office note has been dictated. Chris [...] she should have this removed. P cc: SERVICES SPECIALIST documented in this encounter Procedure Notes Sofia [...] A cc: Radiology SP Chris Smalls MD SERVICES SPECIALIST documented in this encounter Plan [...] Sciatica documented in this encounter Care Teams Produce Shipper Relationship Specialty Start Date End Date Jose Colin, PCP - General 12/24/03 09/17/08 [address] [place] [address] documented as of this encounter
--- OUTSIDE RECORDS SUMMARY | 2022-02-06 10:32 | XMS_ITS | Encounter Summary ---
:1965 Author [facility] Address [address] [place] [address] Care Team Providers Name Role Phone Jose Stack DO Primary Care Provider [phone] Reason for Visit Reason Onset Date Comments Refill 05/09/2004 Encounter Details Date Type Department Care Team Description 05/09/2004 Refill [facility] Jose Stack, DO Refill 205 [facility] 599 [place] [address] [place], [place] [phone] [address] (Wo rk) Social History Tobacco Use Types Packs/Day Years Used Date Smoking Tobacco: Never Alcohol Use Standard Drinks/Week Comments Not Asked 0 (1 standard drink = 0.6 oz pure alcoho l) Sex Assigned at Date Recorded Not on file documented as of this encounter Nursing Notes 05/09/2004 11:59 PM SUBCONTRACTS MANAGER Approved Prescriptions: Disp Refills ACIPHEX 20MG ORAL TABS 30 99 Sig: Take 1 tablet by mouth once a day Authorizing Provider: JOSE STACK Ordering User: NORBERTO ROBLES >> RUBY Prasad May 09, 2004 5:00 PM Last fill on [id number] for a quantity of 30 documented in this encounter Plan of Treatment Not on filedocumented as of this encounter Visit Diagnoses Diagnosis Brachial neuritis or radiculitis NOS Brachial neuritis or radiculitis nos documented in this encounter Care Teams Security Patrol Officer Relationship Specialty Start Date End Date Jose Stack DO PCP - General 12/24/03 09/17/08 [address] [place] [address] documented as of this encounter
--- OUTSIDE RECORDS SUMMARY | 2022-02-06 10:32 | XMS_ITS | Encounter Summary ---
:1965 Author Organization [facility] Address [address] [place] [address] Care Team Providers Name Role Phone Greyson Gonzalez MD Primary Care Provider Encounter Details Date Type Department Care Team Description 10/14/2003 Office Visit [facility] Internal Greyson Gonzalez HEADACHE ; Julio Angeles MD DERMATOPHYTOSIS OF NAIL; [address] NONSPECIF [place] [address] [place], [place] [phone] [address] Social History Tobacco Use Types Packs/Day Years [...] Body Mass Index 29.26 09/02/2002 2:00 PM GYNECOLOGIST documented in this encounter Progress Notes 10/14/2003 [...] -NO Preventive Services up to date? -{YES/NO NEEDS:66155} Immunizations up to date? -{YES/NO,NEEDS:10521} Do you ever feel physically threatened or emotionally afraid? -NOT ASKED Tobacco Status reviewed? (see History Social-Substance) -NO cafeteria attendant offered? -NOT APPLICABLE. Aspirin taken daily? -NO BP was taken on the RIGHT arm. BP cuff size used? -Adult Regular Health Education given? -NO. Contact phone number [phone] (home) [phone] (work), alternate phone number- Esmer Berger LPN [...] eruption documented in this encounter Care Teams It Programmer Relationship Specialty Start Date End Date Greyson Gonzalez MD PCP - General 04/15/01 12/23/03 [facility] [place] [address] documented as of this encounter
--- OUTSIDE RECORDS SUMMARY | 2022-02-06 10:32 | XMS_ITS | Encounter Summary ---
:1965 Author Organization [facility] Address [address] [place] [address] Care Team Providers Name Role Phone Jose Colin DO Primary Care Provider [phone] Encounter Details Date Type Department Care Team Description 12/24/2003 Office Visit [facility] Internal Med Jose Witt DERMATITIS NOS [address], DO [place], [place] [address] 139 [facility] [phone] [place] [address] (Wo rk) Social History Tobacco [...] Body Mass Index 30.18 09/02/2002 2:00 PM POLICY WRITER TYPIST documented in this encounter Progress Notes 12/24/2003 [...] Status reviewed? (see History Social-Substance) -YES NEVER attendant coin operated laundry offered? -NOT APPLICABLE. Aspirin taken daily? -NO BP was taken on the LEFT arm. BP cuff size used? -Adult Regular Health Education given? -NO. Contact phone number [phone] (home) [phone] (work), alternate phone number- Schuyler Thorpe LPN 12/24/2003 4:21 PM Current outpatient prescriptions: OMEPRAZOLE (PRILOSEC) 20MG ORAL CAPS,1 tablet daily,Disp: 30,Rfl: 99 FLUOCINONIDE (LIDEX) 0.05% OINTMENT,thin layer to rash on feet bid for up to three weeks,Disp: qs,Rfl: 0 NAPROXEN (NAPROSYN) 500MG ORAL TABS,one po bid,Disp: 14,Rfl: 0 Erythromycin Jose Colin - 12/24/2003 12:00 AM CDT<TRID:SPI> Doc Type<DT:IM> PT Name<NAME:Disha Choiine> <MRNo:[id number]> Dict ID<[id number]> <29:> Pt Tel #<30:> <28:> <BillNo:> Admit Date<4:12/24/2003> DD<5:> Svc Date<31:12/24/2003> <JobNo:[id number]> <TS:> <CC:> <21:0> Doc Status<RptStat:> Appt Clinic<1003:SP> [...] cause documented in this encounter Care Teams Garland Machine Operator Relationship Specialty Start Date End Date Jose Colin, DO PCP - General 12/24/03 09/17/08 [address] [place] [address] documented as of this encounter
--- OUTSIDE RECORDS SUMMARY | 2022-02-06 10:32 | XMS_ITS | Encounter Summary ---
:1965 Author Organization [facility] Address [address] [place] [address] Care Team Providers Name Role Phone Jose Colin DO Primary Care Provider [phone] Encounter Details Date Type Department Care Team Description 07/15/2004 Correspondence None Unknown, Physici an Regions Consent and Release [address] [place], [place] [address] (Wo rk) Social History Tobacco Use Types Packs/Day Years Used Date Smoking Tobacco: Never Alcohol Use Standard Drinks/Week Comments Not Asked 0 (1 standard drink = 0.6 oz pure alcoho l) Sex Assigned at Date Recorded Not on file documented as of this encounter Progress Notes Unknown, Physician - 07/15/2004 12:00 AM PIN INSERTER documented in this encounter Plan of Treatment Not on filedocumented as of this encounter Visit Diagnoses Not on filedocumented in this encounter Care Teams Property Worker Relationship Specialty Start Date End Date Jose Colin DO PCP - General 12/24/03 09/17/[address] [place] [place] [address] documented as of this encounter
--- OUTSIDE RECORDS SUMMARY | 2022-02-06 10:32 | XMS_ITS | Encounter Summary ---
:1965 Author Organization [facility] Address [address], [place] [address] Care Team Providers Name Role Phone Jose Colin DO Primary Care Provider [phone] Encounter Details Date Type Department Care Team Description 04/20/2004 Telephone [facility] Internal [facility] icine Jose Colin, [address] [place] [address] [address] [phone] [place] [address] (Wo rk) Social History Tobacco Use Types Packs/Day Years Used Date Smoking Tobacco: Never Alcohol Use Standard Drinks/Week Comments Not Asked 0 (1 standard drink = 0.6 oz pure alcoho l) Sex Assigned at Date Recorded Not on file documented as of this encounter Progress Notes Jose Colin - 04/20/2004 12:00 AM WHAT JOB TITLES MEAN JOB TITLES MEAN documented in this encounter Plan of Treatment Not on filedocumented as of this encounter Visit Diagnoses Not on filedocumented in this encounter Care Teams Virology Teacher Relationship Specialty Start Date End Date Jose Colin, DO PCP - General 12/24/03 09/17/08 [address] [place] [address] documented as of this encounter
--- OUTSIDE RECORDS SUMMARY | 2022-02-06 10:32 | XMS_ITS | Encounter Summary ---
:1965 Author Organization [facility] Address [address] [place] [address] Care Team Providers Name Role Phone Jose Colin DO Primary Care Provider [phone] Reason for Visit Reason Onset Date Comments RESULTS, TEST 07/19/2004 Encounter Details Date Type Department Care Team Description 07/19/2004 Telephone [facility] Jose Witt, RESULTS, TEST [address] [place] [address] [address] [phone] [place] [phone] (Wo rk) Social History Tobacco Use Types Packs/Day Years Used Date Smoking Tobacco: Never Alcohol Use Standard Drinks/Week Comments Not Asked 0 (1 standard drink = 0.6 oz pure alcoho l) Sex Assigned at Date Recorded Not on file documented as of this encounter Nursing Notes 07/19/2004 11:59 PM TEACHER CCLC >> JOSE Newberry Jul 19, 2004 2:33 PM see encounter from 07/18/2004 Jose Colin DO 2:33 PM 07/19/2004 >> BOB Newberry Jul 19, 2004 10:47 AM Re: MRI Results documented in this encounter Plan of Treatment Not on filedocumented as of this encounter Visit Diagnoses Not on filedocumented in this encounter Care Teams Casino Floorperson Relationship Specialty Start Date End Date Jose Colin DO PCP - General 12/24/03 09/17/08 [address] [place] [phone] documented as of this encounter
--- OUTSIDE RECORDS SUMMARY | 2022-02-06 10:33 | XMS_ITS | Encounter Summary ---
:1965 Author Organization [facility] Address [address] [place] [address] Care Team Providers Name Role Phone Greyson Gonzalez MD Primary Care Provider Encounter Details Date Type Department Care Team Description 08/26/2002 Office Visit [facility] Internal Med Jose Witt, BURSITIS NEC [address] [place] [address] [facility] [phone] [place] [address] (Wo rk) Social History Tobacco Use Types Packs/Day Years Used Date Smoking Tobacco: Never Alcohol Use Standard Drinks/Week Comments Not Asked 0 (1 standard drink = 0.6 oz pure alcoho l) Sex Assigned at Date Recorded Not on file documented as of this encounter Last Filed Vital Signs Vital Sign Reading Time Taken Comments Blood Pressure 110/56 08/26/2002 4:20 PM SIZE PAINTER Pulse 68 08/26/2002 4:20 PM SIZE PAINTER Temperature 36.2 ??C (97.2 ??F) 08/26/2002 4:20 PM SIZE PAINTER Respiratory Rate 20 08/26/2002 4:20 PM SIZE PAINTER Oxygen Saturation - - Inhaled Oxygen Concentration - - Weight - - Height - - Body Mass Index - - documented in this encounter Progress Notes 08/26/2002 4:20 PM SIZE PAINTER Megan Choi is here today for Injection R shoulder Are you having other pain today, that you want to discuss with the provider? -YES Preventive Services up to date? -{YES/NO NEEDS:63485} Immunizations up to date? -{YES/NO,NEEDS:67888} Do you ever feel physically threatened or emotionally afraid? -NO Tobacco Status reviewed? (see History Social-Substance) -YES safe deposit attendant offered? -NOT APPLICABLE. Aspirin taken daily? -NO BP was taken on the LEFT arm. Large cuff used? -NO Health Education given? -NO. Contact phone number [phone] (home) [phone] (work), alternate phone number . Schuyler ThorpeMONSE [...] IN SUMMARY: BURSITIS OF THE SHOULDER cc: PAINTER documented in this encounter Plan of Treatment Not on filedocumented as of this encounter Visit Diagnoses Diagnosis Other bursitis disorders documented in this encounter Care Teams Film Numberer Relationship Specialty Start Date End Date Greyson Gonzalez MD PCP - General 04/15/01 12/23/03 [address] [place] [address] documented as of this encounter
--- OUTSIDE RECORDS SUMMARY | 2022-02-06 10:33 | XMS_ITS | Encounter Summary ---
:1965 Author Organization [facility] Address [address], [place] [address] Care Team Providers Name Role Phone Greyson Gonzalez MD Primary Care Provider Encounter Details Date Type Department Care Team Description 09/08/2002 Orders Only [facility] Blank Perez APRN, INTERMODAL OWNER OPERATOR TRUCK DRIVER 205 [facility] [address] [place] [address] [place] [address] (Wo rk) Social History Tobacco [...] AM Res ults for this AND HDL INSPECTOR RADAR AND ELECTRONICS procedure are i n the results section. GLUCOSE - FASTING > Routine 09/08/2002 7:31 AM Re sults for this 8 HRS FASTING INSPECTOR RADAR AND ELECTRONICS procedure are in the results section. documented in this encounter Results GLUCOSE - FASTING > 8 HRS FASTING (09/08/2002 7:31 AM INSPECTOR RADAR AND ELECTRONICS) P athologist Signature Glucose 94 70 - 110 [facility] mg/dl Hours Fasting 12 hours [facility] Specimen Anatomical Collection Method Collection Time Receive d Time (Source) Location / / Volume Laterality 09/08/2002 7:31 AM 3 7:32 INSPECTOR RADAR AND ELECTRONICS AM INSPECTOR RADAR AND ELECTRONICS Blank Perez APRN, INTERMODAL OWNER OPERATOR TRUCK DRIVER LAB_1 Performing Organization Address City/State/ZIP Code Phon e Number [facility] [phone] [address] (ABNORMAL) CHOLESTEROL, TOTAL AND HDL (09/08/2002 7:31 AM INSPECTOR RADAR AND ELECTRONICS) athologist Signature Cholesterol 151 <200 mg/dl [facility] HDL 33 (L) >35 mg/dl [facility] Specimen Anatomical Collection Method Collection Time Receive d Time (Source) Location / / Volume Laterality 09/08/2002 7:31 AM 3 7:32 INSPECTOR RADAR AND ELECTRONICS AM INSPECTOR RADAR AND ELECTRONICS Blank Perez FOREST FIRE WARDEN, INTERMODAL OWNER OPERATOR TRUCK DRIVER LAB_1 Performing Organization Address City/State/ZIP Code Phon e Number [facility] [employer] [phone] [address] documented in this encounter Visit Diagnoses Not on filedocumented in this encounter Care Teams Fisher Pound Net Or Trap Relationship Specialty Start Date End Date Greyson Gonzalez MD PCP - General 04/15/01 12/23/03 [address] [place] [address] documented as of this encounter
--- OUTSIDE RECORDS SUMMARY | 2022-02-06 10:33 | XMS_ITS | Encounter Summary ---
:1965 Author Organization [facility] Address [address], [place] [address] Care Team Providers Name Role Phone Greyson Gonzalez MD Primary Care Provider Encounter Details Date Type Department Care Team Description 05/01/2001 Orders Only [facility] Obstetrics and Anayeli Perez, SLUDGE FILTRATION ATTENDANT, CREAM HAULER Gynecology [address] [place] [address] [place] [address] [phone] Social History Tobacco Use Types Packs/Day Years Used Date Smoking Tobacco: Never Assessed Sex Assigned at Date Recorded Not on file documented as of this encounter Procedure Notes Alfredo Mcmahon - 05/01/2001 12:00 AM CSTAssociated Order(s): ECHO EXAMINATION PROCEDURE TAPE NO: [id number] REFERRING PHYSICIAN: This patient was sent to [...] ESSENTIALLY NORMAL PELVIC ULTRASOUND cc: AUDREY Moffett M INVESTIGATOR documented in this encounter Plan of Treatment Not on filedocumented as of this encounter Procedures Procedure Name Priority Date/Time Associated Diagnosis Comme nts UNLISTED ULTRASOUND 05/01/2001 Results for this PROCEDURE procedure are i n the results section . documented in this encounter Results ECHO EXAMINATION PROCEDURE (05/01/2001) Anatomical Region Laterality Modality Other Transcriptions Alfredo Mcmahon - 05/01/2001 12:00 AM CLAIM INVESTIGATOR TAPE NO: [id number] REFERRING PHYSICIAN: This patient was se nt [...] UL TRASOUND cc: AUDREY Moffett Blank Perez SLUDGE FILTRATION ATTENDANT, CREAM HAULER PROC_2 documented in this encounter Visit Diagnoses Not on filedocumented in this encounter Care Teams Arborist Representative Relationship Specialty Start Date End Date Greyson Gonzalez MD PCP - General 04/15/01 12/23/03 [address] [place] [address] documented as of this encounter
--- OUTSIDE RECORDS SUMMARY | 2022-02-06 10:33 | XMS_ITS | Encounter Summary ---
:1965 Author Organization [facility] Address [address], [place] [address] Care Team Providers Name Role Phone Greyson Gonzalez MD Primary Care Provider Encounter Details Date Type Department Care Team Description 07/26/2001 Orders Only [facility] Internal Med Juanito Chandra MD [address] [place] [address] Social History Tobacco Use Types Packs/Day Years Used Date Smoking Tobacco: Never Assessed Sex Assigned at Date Recorded Not on file documented as of this encounter Plan of Treatment Not on filedocumented as of this encounter Visit Diagnoses Not on filedocumented in this encounter Care Teams Metal Patternmaker Apprentice Relationship Specialty Start Date End Date Greyson Gonzalez MD PCP - General 04/15/01 12/23/03 [address] [place] [address] documented as of this encounter
--- OUTSIDE RECORDS SUMMARY | 2022-02-06 10:33 | XMS_ITS | Encounter Summary ---
:1965 Author Organization [facility] Address [address] [address] Care Team Providers Name Role Phone Greyson Gonzalez MD Primary Care Provider Encounter Details Date Type Department Care Team Description 09/02/2002 Orders Only [facility] Blank Giraldo, TRY OUT PERSON, MANUFACTURING ENGINEERING TECHNICIAN 205 [facility] [address] [place] [address] [place] [address] (Wo rk) Social History Tobacco [...] 09/02/2002 12:00 AM Res ults for this OUTSIDE ENERGY SALES REPRESENTATIVES procedure are i n the results section. documented in this encounter Results PAP TEST, ROUTINE (09/02/2002 12:00 AM OUTSIDE ENERGY SALES REPRESENTATIVES) Component Value Ref Test Analysis Performed At [facility] Method Time Signature Cytology, Pap (NOTE) [facility] Cytology Report Patient Name: PADMINI CHOI Taken: 09/02/02 Received: 09/03/02 Reported: 09/10/02 Physician(s): BLANK GIRALDO ([id number]) ? [id number] ? Source of Specimen Liquid routine Pap, [...] / Volume Laterality 09/02/2002 09/03/2002 2:27 PM OUTSIDE ENERGY SALES REPRESENTATIVES Blank Giraldo APRN, MANUFACTURING ENGINEERING TECHNICIAN LAB_1 Performing Organization Address City/State/ZIP Code Phon e Number [address] [address] [place], [place] [phone] documented in this encounter Visit Diagnoses Not on filedocumented in this encounter Care Teams Senior Receptionist Relationship Specialty Start Date End Date Greyson Gonzalez MD PCP - General 04/15/01 12/23/03 [address] [place] [address] documented as of this encounter
--- OUTSIDE RECORDS SUMMARY | 2022-02-06 10:33 | XMS_ITS | Encounter Summary ---
:1965 Author Organization [facility] Address [address], [place] [address] Care Team Providers Name Role Phone Greyson Gonzalez MD Primary Care Provider Encounter Details Date Type Department Care Team Description 07/02/2001 Office Visit [facility] Internal Greyson Gonzalez, JOINT PAIN-SHLDER; Medicine PAIN IN LIMB; [address] [place] [address] [place], [place] [phone] [address] Social History Tobacco Use Types Packs/Day [...] as tolerated. She was reminded to return CIPAL CONSULTING ENGINEER documented in this encounter Plan of Treatment Not on filedocumented as of this encounter Visit Diagnoses Diagnosis Pain in joint, shoulder region Pain in limb Disturbance of skin sensation documented in this encounter Care Teams Hop Strainer Relationship Specialty Start Date End Date Greyson Gonzalez MD PCP - General 04/15/01 12/23/03 [facility] [place] [address] documented as of this encounter
--- OUTSIDE RECORDS SUMMARY | 2022-02-06 10:33 | XMS_ITS | Encounter Summary ---
:1965 Author [facility] Address [address], [place] [address] Care Team Providers Name Role Phone Greyson Gonzalez MD Primary Care Provider Encounter Details Date Type Department Care Team Description 2002 Orders Only [facility] Lebron Booth MD ANGELA IGN CARLO SKIN ARM Social History Tobacco Use Types Packs/Day Years Used Date Smoking Tobacco: Never Assessed Sex Assigned at Date Recorded Not on file documented as of this encounter Plan of Treatment Not on filedocumented as of this encounter Procedures Procedure Name Priority Date/Time Associated Diagnosis Comme [facility] DERMATOPATHOLOGY Routine 2002 Benign Carlo Skin Arm Resu lts for this procedure are in the resu lts section. documented in this encounter Results DERMATOPATHOLOGY (2002) Component Value Ref Test Analysis Performed At [facility] Method Time [facility] Dermatopathology [facility] DERMATOPATHOLOGY Patient: MEGAN CHOI ?? : 1965 Med Rec: [id number] Date of BX: 2002 Date Acc: 03/28/2002 [...] ? ARM, UPPER, RIGHT : DERMATOFIBROMA SNOMED-T: ??[id number] SNOMED-M: ??M-64876 ICD9-CM: ??216.6 Eddie Ballesteros M.D./Pathologist Specimen (Source) Anatomical Location Collection Method / Collectio n Time Received Time / Laterality Volume 2002 Lebron Booth MD PAPS Performing Organization Address City/State/[facility] Phon e Number [facility] DERMATOPATHOLOGY [address] [place] [address] documented in this encounter Visit Diagnoses Diagnosis Benign neoplasm of skin of upper limb, i ncluding shoulder documented in this encounter Care Teams Automobile Detailer Relationship Specialty Start Date End Date Greyson Gonzalez MD PCP - General 04/15/01 12/23/03 [address] [place] [address] documented as of this encounter
--- OUTSIDE RECORDS SUMMARY | 2022-02-06 10:33 | XMS_ITS | Encounter Summary ---
:1965 Author Organization [facility] Address [address] [place] [address] Care Team Providers Name Role Phone Greyson Gonzalez MD Primary Care Provider Encounter Details Date Type Department Care Team Description 04/04/2002 Office Visit [facility] Lebron Mcgrath MD VERITO SSNG CHANGE [...] sutures documented in this encounter Care Teams Reefer Engineer Relationship Specialty Start Date End Date Greyson Gonzalez MD PCP - General 04/15/01 12/23/03 [address] [place] [address] documented as of this encounter
--- OUTSIDE RECORDS SUMMARY | 2022-02-06 10:33 | XMS_ITS | Encounter Summary ---
:1965 Author Organization [facility] Address [address] [place] [address] Care Team Providers Name Role Phone Greyson Gonzalez MD Primary Care Provider Encounter Details Date Type Department Care Team Description 01/24/2002 Office Visit [facility] Internal OfSchuyler moore, ACUTE Medicine PHARYNGITIS(SORE [address] THROAT) [place] [address] [place], [place] [phone] [address] (Wo rk) Social History Tobacco Use [...] pharyngitis. PLAN: 1. Discussed with patient. Advised [id number] cough syrup and Tylenol. 2. Prescription for [...] pharyngitis documented in this encounter Care Teams Jewel Bearing Broacher Relationship Specialty Start Date End Date Greyson Gonzalez MD PCP - General 04/15/01 12/23/03 [address] [place] [address] documented as of this encounter
--- OUTSIDE RECORDS SUMMARY | 2022-02-06 10:33 | XMS_ITS | Encounter Summary ---
:1965 Author Organization [facility] Address [address] [place] [address] Care Team Providers Name Role Phone Greyson Gonzalez MD Primary Care Provider Encounter Details Date Type Department Care Team Description 08/26/2002 Correspondence None Unknown, Physici an [facility] [address] [place] [address] (Wo rk) Social History Tobacco Use Types Packs/Day Years Used Date Smoking Tobacco: Never Alcohol Use Standard Drinks/Week Comments Not Asked 0 (1 standard drink = 0.6 oz pure alcoho l) Sex Assigned at Date Recorded Not on file documented as of this encounter Progress Notes Unknown, Physician - 08/26/2002 12:00 AM INSTALLER documented in this encounter Plan of Treatment Not on filedocumented as of this encounter Visit Diagnoses Not on filedocumented in this encounter Care Teams Human Relations Professor Relationship Specialty Start Date End Date Greyson Gonzalez MD PCP - General 04/15/01 12/23/03 [address] [place], [place] [address] documented as of this encounter
--- OUTSIDE RECORDS SUMMARY | 2022-02-06 10:33 | XMS_ITS | Encounter Summary ---
:1965 Author [facility] Address [address] [place] [address] Care Team Providers Name Role Phone Greyson Gonzalez MD Primary Care Provider Reason for Visit Reason Comments DIZZINESS Encounter Details Date Type Department Care Team Description 03/05/2002 Telephone Careline Dereck Dacosta RN DIZZINESS [address] [place], [place] [address] [facility] [phone] [place] [address] Social History Tobacco Use Types Packs/Day Years [...] filedocumented in this encounter Care Teams Senior Sales Manager Relationship Specialty Start Date End Date Greyson Gonzalez MD PCP - General 04/15/01 12/23/03 [address] [place] [address] documented as of this encounter
--- OUTSIDE RECORDS SUMMARY | 2022-02-06 10:33 | XMS_ITS | Encounter Summary ---
:1965 Author Organization [facility] Address [address] [place] [address] Care Team Providers Name Role Phone Unassigned, Provider Primary Care Provider Unavailable Encounter Details Date Type Department Care Team Description 05/13/2001 Orders Only Blank Burleson APRN, POWDER GUARD [address] [place] [address] [place] [address] (Wo rk) Social History Tobacco [...] Re sults for this 8 HRS FASTING STOCK BUYER procedure are in the results section. documented in this encounter Results (ABNORMAL) GLUCOSE - FASTING > 8 HRS FASTING (05/13/2001 8:47 AM STOCK BUYER) [facility] Time Signature Glucose 119 (H) 70 - 110 [facility] mg/dl Hours Fasting 10 hours [facility] Specimen Anatomical Collection Method Collection Time Receive d Time (Source) Location / / Volume Laterality 05/13/2001 8:47 AM 1 8:48 STOCK BUYER AM STOCK BUYER Blank Perez APRN, CNP LAB_1 Performing Organization Address City/State/ZIP Code Phon e Number [facility] [phone] [facility] [address] [address] documented in this encounter Visit Diagnoses Not on filedocumented in this encounter Care Teams Workers Compensation Specialist Relationship Specialty Start Date End Date Unassigned, Provider PCP - General 09/18/08 [address] [place] [address] documented as of this encounter
--- OUTSIDE RECORDS SUMMARY | 2022-02-06 10:33 | XMS_ITS | Encounter Summary ---
:1965 Author Organization [facility] Address [address] [place] [address] Care Team Providers Name Role Phone Greyson Gonzalez MD Primary Care Provider Encounter Details Date Type Department Care Team Description 11/21/2001 Office Visit [facility] Optometry Ailyn Silva ey R MYOPIA [address] [place], [place] [address] (Wo rk) Social History Tobacco Use Types Packs/Day Years Used Date Smoking Tobacco: Never Assessed Sex Assigned at Date Recorded Not on file documented as of this encounter Plan of Treatment Not on filedocumented as of this encounter Visit Diagnoses Diagnosis Myopia documented in this encounter Care Teams Water Reuse Program Manager Relationship Specialty Start Date End Date Greyson Gonzalez MD PCP - General 04/15/01 12/23/03 [address] [place], [place] [id number] documented as of this encounter
--- OUTSIDE RECORDS SUMMARY | 2022-02-06 10:33 | XMS_ITS | Encounter Summary ---
:1965 Author Organization [facility] Address [address], [place] [address] Care Team Providers Name Role Phone Greyson Gonzalez MD Primary Care Provider Encounter Details Date Type Department Care Team Description 01/03/2002 Office Visit [facility] Juanito Panda, FAITH MAHMOOD CYST; Medicine ESOPHAGEAL REFLUX [address] [place] [address] Social History Tobacco Use Types [...] reflux documented in this encounter Care Teams Pyrotechnician Relationship Specialty Start Date End Date Greyson Gonzalez MD PCP - General 04/15/01 12/23/03 [address] [place] [address] documented as of this encounter
--- OUTSIDE RECORDS SUMMARY | 2022-02-06 10:33 | XMS_ITS | Encounter Summary ---
:1965 Author Organization [facility] Address [address] [place] [address] Care Team Providers Name Role Phone Greyson Gonzalez MD Primary Care Provider Encounter Details Date Type Department Care Team Description 09/02/2002 Office Visit [facility] Obstetrics Blank Perez, GYNECOLO GIC EXAMINATION; and Gynecology ESE TEACHER, SHEETER WAXER OPERATOR SCREENING MAL NEOP-CERVIX; [address] [facility] [place] [address] [place], [place] [phone] Social History Tobacco Use Types Packs/Day Years Used Date Smoking Tobacco: Never Alcohol Use Standard Drinks/Week Comments Not Asked 0 (1 standard drink = 0.6 oz pure alcoho l) Sex Assigned at Date Recorded Not on file documented as of this encounter Last Filed Vital Signs Vital Sign Reading Time Taken Comments Blood Pressure 102/56 09/02/2002 2:00 PM SHOWROOM SALES CONSULTANT Pulse 64 09/02/2002 2:00 PM SHOWROOM SALES CONSULTANT Temperature - - Respiratory Rate - - Oxygen Saturation - - Inhaled Oxygen Concentration - - Weight 69.8 kg (153 lb 12.8 oz) 09/02/2002 2:00 PM SHOWROOM SALES CONSULTANT Height 157.5 cm (5' 2) 09/02/2002 2:00 PM SHOWROOM SALES CONSULTANT Body Mass Index 28.13 09/02/2002 2:00 PM SHOWROOM SALES CONSULTANT documented in this encounter Progress Notes 09/02/2002 2:00 PM SHOWROOM SALES CONSULTANT Megan Choi is here today for pe [...] Final Value: See Separate Report Performed at [facility] No results found for this basename: CHOLESTEROL CHOLESTEROL-L (mg/dl) Date Value Low High Status 03/28/2001 225* <200 Final Mammogram done? -yes awile ago. Bone Density study done? -No testing done. Do you ever feel physically threatened or emotionally afraid -NO Tobacco Status reviewed? (see History Social-Substance) -NO elevator attendant offered? -DECLINED. Aspirin taken daily? - NO Health Education given? -NO. Patient's phone [phone] (home) [phone] (work) Thania YañezMONSE 09/02/2002 2:24 PM Current [...] p.r.n. IN SUMMARY: Routine health maintenance cc: ROOM SALES CONSULTANT documented in this encounter Plan of Treatment Not on filedocumented as of this encounter Visit Diagnoses Diagnosis Gynecological examination Screening for malignant neoplasm of the cervix Routine general medical examination at [facility] Routine general medical examination at [facility] facility documented in this encounter Care Teams Cardiovascular Surgeon Relationship Specialty Start Date End Date Greyson Gonzalez MD PCP - General 04/15/01 12/23/03 [address] [place] [address] documented as of this encounter
--- OUTSIDE RECORDS SUMMARY | 2022-02-06 10:33 | XMS_ITS | Encounter Summary ---
:1965 Author Organization [facility] Address [address], [place] [address] Care Team Providers Name Role Phone Greyson Gonzalez MD Primary Care Provider Encounter Details Date Type Department Care Team Description 10/14/2001 Office Visit [facility] Internal REMBERTO Colin BACK PA IN(ACUTE)<6 WEEKS; Medicine Jose Allan DO LOW BACK PAIN (CHRONIC)>6 WEEKS; [facility] [address] [place] [address] [place] [phone] [address] Social History Tobacco Use Types Packs/Day [...] 8 days ago she bent over to pickle solution maker a heavy load of laundry and when [...] ied documented in this encounter Care Teams Manager Fast Food Relationship Specialty Start Date End Date Greyson Gonzalez MD PCP - General 04/15/01 12/23/03 [address] [place] [address] documented as of this encounter
--- OUTSIDE RECORDS SUMMARY | 2022-02-06 10:33 | XMS_ITS | Encounter Summary ---
:1965 Author Organization [facility] Address [address] [place] [address] Care Team Providers Name Role Phone Greyson Gonzalez MD Primary Care Provider Encounter Details Date Type Department Care Team Description 08/22/2002 Office Visit [facility] Internal Greyson Gonzalez, JOINT PAIN-SHLDER; Medicine PAIN IN LIMB 205 [facility] [address] [place] [address] [place], [place] [phone] (Wo rk) Social History Tobacco Use Types Packs/Day Years Used Date Smoking Tobacco: Never Assessed Sex Assigned at Date Recorded Not on file documented as of this encounter Last Filed Vital Signs Vital Sign Reading Time Taken Comments Blood Pressure 108/56 08/22/2002 4:20 PM BIRTH ATTENDANT Pulse 72 08/22/2002 4:20 PM BIRTH ATTENDANT Temperature - - Respiratory Rate 12 08/22/2002 4:20 PM BIRTH ATTENDANT Oxygen Saturation - - Inhaled Oxygen Concentration - - Weight 71.2 kg (157 lb) 08/22/2002 4:20 PM BIRTH ATTENDANT Height - - Body Mass Index - - documented in this encounter Progress Notes 08/22/2002 4:20 PM BIRTH ATTENDANT Megan Choi is here today for R shoulder pain. Are you having other pain today, that you want to discuss with the provider? -NO Preventive Services up to date? -YES Immunizations up to date? -YES Do you ever feel physically threatened or emotionally afraid? -NO Tobacco Status reviewed? (see History Social-Substance) -YES beach attendant offered? -NOT APPLICABLE. Aspirin taken daily? -NO BP was taken on the RIGHT arm. Large cuff used? -NO Health Education given? -NO. Current prescriptions: MULTIPLE VITAMIN TABS OR, 1 qd, D: 30, R: 0 ACIPHEX 20MG ORAL TABS, TAKE 1 TABLET by mouthDAILY, D: 30, R: 0 Erythromycin Contact phone number [phone] (home) [phone] (work), alternate phone number . 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 OBJECTIVE: Blood pressure 108/56. Pulse 72. Respiratory [...] Right shoulder and upper extremity pain. cc: H ATTENDANT Greyson Gonzalez - 08/22/2002 12:00 AM BIRTH ATTENDANT H ATTENDANT documented in this encounter Plan of Treatment Not on filedocumented as of this encounter Visit Diagnoses Diagnosis Pain in joint, shoulder region Pain in limb documented in this encounter Care Teams Community Service Coordinator Relationship Specialty Start Date End Date Greyson Gonzalez MD PCP - General 04/15/01 12/23/03 [facility] [place] [address] documented as of this encounter
--- OUTSIDE RECORDS SUMMARY | 2022-02-06 10:33 | XMS_ITS | Encounter Summary ---
:1965 Author Organization [facility] Address [address], [place] [address] Care Team Providers Name Role Phone Greyson Gonzalez MD Primary Care Provider Encounter Details Date Type Department Care Team Description 08/13/2001 Office Visit [facility] Wilda Louise AB N GLUCOSE TOLERAN TEST; Clinic RDN, KIESHA PURE HYPERCHOLESTEROLEM; [address] [place] [address] [place], [place] [phone] (Wo rk) Social History Tobacco Use Types [...] nicer to get out. 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 OBJECTIVE: A 36-year-old woman, referred to the [...] glucose intolerance. cc: Wilda Louise RD, KIESHA EPOINT SPECIALIST documented in this encounter Plan of Treatment Not on filedocumented as of this encounter Visit Diagnoses Diagnosis ABN GLUCOSE TOLERAN TEST Pure hypercholesterolemia Obesity, unspecified ([facility]) Obesity, unspecified documented in this encounter Care Teams Specimen Transporter Relationship Specialty Start Date End Date Greyson Gonzalez MD PCP - General 04/15/01 12/23/03 [address] [place] [address] documented as of this encounter
--- OUTSIDE RECORDS SUMMARY | 2022-02-06 10:33 | XMS_ITS | Encounter Summary ---
:1965 Author Organization [facility] Address [address] [place] [address] Care Team Providers Name Role Phone Greyson Gonzalez MD Primary Care Provider Encounter Details Date Type Department Care Team Description 10/14/2001 Orders Only Yeyo Colin, DO [address] [place] [address] (Wo rk) Social History Tobacco [...] [facility] [phone] [phone] (ABNORMAL) UA MICRO IF (10/14/2001 1:44 PM CDT) athologist Signature Appr Yellow [facility] Appr Clear [facility] Sp Gr 1.010 1.005 - [facility] 1.030 Leuk Sml (A) [facility] Nitr Neg [facility] pH 7.0 4.5 - 8.0 [facility] Prot Neg mg/dl [facility] Gluc Neg mg/dl [facility] Ket Neg mg/dl [facility] Urob 0.2 0.2 - 1.0 [facility] EU/dl Bili Neg [facility] Blood Tr (A) [facility] Specimen Anatomical Collection Method Collection Time Receive d Time (Source) Location / / Volume Laterality 10/14/2001 1:44 PM 2 1:45 CDT PM CDT Jose Colin DO LAB_1 Performing Organization Address City/State/[facility] Code Phon e Number [facility] [phone] [address] documented in this encounter Visit Diagnoses Not on filedocumented in this encounter Care Teams Assistant Auto Center Manager Relationship Specialty Start Date End Date Greyson Gonzalez MD PCP - General 04/15/01 12/23/03 [address] [place] [address] documented as of this encounter
--- OUTSIDE RECORDS SUMMARY | 2022-02-06 10:33 | XMS_ITS | Encounter Summary ---
:1965 Author Organization [facility] Address [address] [address] Care Team Providers Name Role Phone Greyson Gonzalez MD Primary Care Provider Encounter Details Date Type Department Care Team Description 07/26/2001 Office Visit [facility] Internal Med Juanito Chandra MD DERMATITIS NOS [address] [place] [address] Social History Tobacco Use Types [...] b.i.d. or t.i.d. IN SUMMARY: Dermatitis. cc: P CONTROLLER documented in this encounter Plan of Treatment Not on filedocumented as of this encounter Visit Diagnoses Diagnosis Contact dermatitis and other eczema, due to unspecified cause documented in this encounter Care Teams Manager Services Relationship Specialty Start Date End Date Greyson Gonzalez MD PCP - General 04/15/01 12/23/03 [address] [place] [address] documented as of this encounter
--- OUTSIDE RECORDS SUMMARY | 2022-02-06 10:33 | XMS_ITS | Encounter Summary ---
:1965 Author Organization [facility] Address [address], [place] [address] Care Team Providers Name Role Phone Greyson Gonzalez MD Primary Care Provider Encounter Details Date Type Department Care Team Description 01/24/2002 Orders Only Schuyler Ortiz MD [address] [place] [address] (Wo rk) Social History Tobacco [...] STREP SCREEN (WAITI (01/24/2002 2:38 PM CDT) [facility] Method Time Signature Patient Home [id number] Phone # Patient Work None [facility] # Grp A Rapid Negative [facility] Screen Grp A Culture Negative [facility] Final Specimen Anatomical Collection Method Collection Time Receive d Time (Source) Location / / Volume Laterality 01/24/2002 2:38 PM 2 2:39 CDT PM CDT Schuyler Ortiz MD LAB_1 Performing Organization Address City/State/ZIP Code Phon e Number [facility] [phone] [facility] [address] [address] documented in this encounter Visit Diagnoses Not on filedocumented in this encounter Care Teams Learning Manager Relationship Specialty Start Date End Date Greyson Gonzalez MD PCP - General 04/15/01 12/23/03 [address] [place] [address] documented as of this encounter
--- OUTSIDE RECORDS SUMMARY | 2022-02-06 10:33 | XMS_ITS | Encounter Summary ---
:1965 Author Organization [facility] Address [address] [place] [address] Care Team Providers Name Role Phone Greyson Gonzalez MD Primary Care Provider Encounter Details Date Type Department Care Team Description 2002 Office Visit [facility] Lebron Mcgrath MD [facility] R & [...] skin documented in this encounter Care Teams Sprinkling System Irrigator Relationship Specialty Start Date End Date Greyson Gonzalez MD PCP - General 04/15/01 12/23/03 [address] [place] [address] documented as of this encounter
--- OUTSIDE RECORDS SUMMARY | 2022-02-06 10:33 | XMS_ITS | Encounter Summary ---
:1965 Author Organization [facility] Address [address], [place] [address] Care Team Providers Name Role Phone Greyson Gonzalez MD Primary Care Provider Encounter Details Date Type Department Care Team Description 05/20/2001 Office Visit [facility] Obstetrics Blank Perez, GENERAL SYMPTOMS NEC; and Gynecology CAFE TEAM MEMBER, [facility], [address] [address] [place], [place] [phone] [address] Social History Tobacco Use Types Packs/Day [...] ULTRASOUND AND OCPS, IMPAIRED GLUCOSE TOLERANCE. cc: AL INSURANCE BILLER documented in this encounter Plan of Treatment Not on filedocumented as of this encounter Visit Diagnoses Diagnosis General symptoms NEC Other general symptoms Counseling NOS(V65.40) Counseling NOS documented in this encounter Care Teams Crusher Wet Ground Mica Relationship Specialty Start Date End Date Greyson Gonzalez MD PCP - General 04/15/01 12/23/03 [address] [place] [address] documented as of this encounter
--- OUTSIDE RECORDS SUMMARY | 2022-02-06 10:33 | XMS_ITS | Encounter Summary ---
:1965 [facility] Address [address], [place] [address] Care Team Providers Name Role Phone Greyson Gonzalez MD Primary Care Provider Encounter Details Date Type Department Care Team Description 12/27/2001 Orders Only [facility] Internal Med Juanito Chandra MD [address] [place] [address] Social History Tobacco Use Types Packs/Day Years Used Date Smoking Tobacco: Never Assessed Sex Assigned at Date Recorded Not on file documented as of this encounter Plan of Treatment Not on filedocumented as of this encounter Visit Diagnoses Not on filedocumented in this encounter Care Teams Med Specialist Relationship Specialty Start Date End Date Greyson Gonzalez MD PCP - General 04/15/01 12/23/03 [address] [place] [address] documented as of this encounter
--- OUTSIDE RECORDS SUMMARY | 2022-02-06 10:33 | XMS_ITS | Encounter Summary ---
:1965 [facility] Address [address] [address] Care Team Providers Name Role Phone Greyson Gonzalez MD Primary Care Provider Encounter Details Date Type Department Care Team Description 01/13/2002 Orders Only [facility] Internal Med Juanito Chandra MD [address] [place] [address] Social History Tobacco Use Types Packs/Day Years Used Date Smoking Tobacco: Never Assessed Sex Assigned at Date Recorded Not on file documented as of this encounter Plan of Treatment Not on filedocumented as of this encounter Visit Diagnoses Not on filedocumented in this encounter Care Teams Conservation Specialist Relationship Specialty Start Date End Date Greyson Gonzalez MD PCP - General 04/15/01 12/23/03 [address] [place], [place] [address] documented as of this encounter
--- OUTSIDE RECORDS SUMMARY | 2022-02-06 10:33 | XMS_ITS | Encounter Summary ---
:1965 Author Organization [facility] Address [address], [place] [address] Care Team Providers Name Role Phone Greyson Gonzalez MD Primary Care Provider Encounter Details Date Type Department Care Team Description 05/01/2001 Office Visit [place] beef pluck trimmer Ult rasound IRREGULAR MENSTRUATION [address] [place], [place] [address] Social History Tobacco Use Types Packs/Day Years Used Date Smoking Tobacco: Never Assessed Sex Assigned at Date Recorded Not on file documented as of this encounter Progress Notes Alfredo Mcmahon - 05/01/2001 12:00 AM CSTThis Document has been Canceled. CA SPRAY MIXER documented in this encounter Plan of Treatment Not on filedocumented as of this encounter Visit Diagnoses Diagnosis Irregular menstrual cycle documented in this encounter Care Teams Adolescent Specialist Relationship Specialty Start Date End Date Greyson Gonzalez MD PCP - General 04/15/01 12/23/03 [address] [place], [place] [address] documented as of this encounter
--- OUTSIDE RECORDS SUMMARY | 2022-02-06 10:34 | XMS_ITS | Encounter Summary ---
:1965 Author Organization [facility] Address [address] [address] Care Team Providers Name Role Phone Juanito Panda MD Primary Care Provider Unavailable Encounter Details Date Type Department Care Team Description 03/18/2001 Office Visit [facility] Internal Med Greyson Romero MD BACKACHE NOS; [address] [place] [address] [place], [place] [phone] (Wo rk) Social History Tobacco Use Types [...] as discussed. She is going to discontinue [id number] ibuprofen and use Naprosyn 500 milligrams po [...] limb documented in this encounter Care Teams Branch Operation Evaluation Manager Relationship Specialty Start Date End Date Juanito Panda MD PCP - General 07/30/00 1 documented as of this encounter
--- OUTSIDE RECORDS SUMMARY | 2022-02-06 10:34 | XMS_ITS | Encounter Summary ---
:1965 Author Organization [facility] Address [address] [place] [address] Care Team Providers Name Role Phone Juanito Panda MD Primary Care Provider Unavailable Encounter Details Date Type Department Care Team Description 03/28/2001 Office Visit [facility] Obstetrics Blank Perez, GYNECOLO GIC EXAMINATION; and Gynecology HOTEL CASINO FLOORPERSON, ADHESIVE BANDAGE MACHINE OPERATOR SCREENING MAL NEOP-CERVIX 205 [facility] [address] [place] [address] [place], [place] [phone] [address] Social History Tobacco Use Types Packs/Day Years Used Date Smoking Tobacco: Never Assessed Sex Assigned at Date Recorded Not on file documented as of this encounter Progress Notes Blank Perez - 03/28/2001 12:00 AM CDTSUBJECTIVE: 36 year-old female comes in today for RHM. She is new to [facility]. She had a laminectomy in September involving C6 and C7. She has also had one section in 1987. Her children are 18, 17 and 13 and all healthy. Her one daughter is at college. Her father has HTN and diabetes and two AL's. He has had two open heart surgeries, [...] and HTN. May obtain the program through [employer] on prevention of diabetes. Patient will return in one year or prn. IN SUMMARY: RHM. cc: documented in this encounter Plan of Treatment Not on filedocumented as of this encounter Visit Diagnoses Diagnosis Gynecological examination Screening for malignant neoplasm of the cervix documented in this encounter Care Teams Sports Psychologist Relationship Specialty Start Date End Date Juanito Panda MD PCP - General 07/30/000 1 documented as of this encounter
--- OUTSIDE RECORDS SUMMARY | 2022-02-06 10:34 | XMS_ITS | Encounter Summary ---
:1965 Author Organization [facility] Address [address] [address] Care Team Providers Name Role Phone Greyson Gonzalez MD Primary Care Provider Encounter Details Date Type Department Care Team Description 04/19/2001 Office Visit [facility] Obstetrics and Blank Perez, CARE MANAGEMENT COORDINATOR , COUNSELING, HEALTH Gynecology [facility] 205 [facility] [address] [place] [address] [place], [place] [phone] (Wo rk) Social History Tobacco Use [...] results. IN SUMMARY: FOLLOW UP LAB cc: E SPOTTER documented in this encounter Plan of Treatment Not on filedocumented as of this encounter Visit Diagnoses Diagnosis Counseling NOS(V65.40) Counseling NOS documented in this encounter Care Teams Almond Sorter Relationship Specialty Start Date End Date Greyson Gonzalez MD PCP - General 04/15/01 12/23/03 [address] [place] [address] documented as of this encounter
--- OUTSIDE RECORDS SUMMARY | 2022-02-06 10:34 | XMS_ITS | Encounter Summary ---
:1965 Author Organization [facility] Address [address] [place] [address] Care Team Providers Name Role Phone Juanito Panda MD Primary Care Provider Unavailable Reason for Visit Reason Comments NEW MEMBER VISIT VIA INTERFACE Encounter Details Date Type Department Care Team Description 08/10/2000 Office Visit [facility] Juanito Panda, NEURALGIA/NEURITIS NOS [address] [place] [address] Social History Tobacco Use Types Packs/Day Years Used Date Smoking Tobacco: Never Assessed Sex Assigned at Date Recorded Not on file documented as of this encounter Progress Notes Juanito Panda - 08/10/2000 12:00 AM CSTS: This 35 year-old female is a new patient. We have received some records from [facility] on [place] in [place], which are reviewed. These document that in [...] She was referred to [facility]. Brandt of [facility] Neurosurgery. She saw him on 06/14/00 and [...] trapezius and paracervical area is diffusely tender. Marine Farmer strength is slightly reduced on the right [...] an operative date has been decided. cc: UCTION WELDER documented in this encounter Plan of Treatment Not on filedocumented as of this encounter Visit Diagnoses Diagnosis Neuralgia, neuritis, and radiculitis, un specified documented in this encounter Care Teams Rolled Gold Plater Relationship Specialty Start Date End Date Juanito Panda MD PCP - General 07/30/000 1 documented as of this encounter
--- OUTSIDE RECORDS SUMMARY | 2022-02-06 10:34 | XMS_ITS | Encounter Summary ---
:1965 Author Organization [facility] Address [address] [place] [address] Care Team Providers Name Role Phone Unassigned, Provider Primary Care Provider Unavailable Encounter Details Date Type Department Care Team Description 03/28/2001 Orders Only Blank Burleson APRN, [place] [address] [place], [place] [address] [place] [address] (Wo rk) Social History Tobacco [...] PAP SMEAR, ROUTINE (03/28/2001 9:30 AM CDT) [facility] Method Time Signature Pap Smear, See Separate Report [facility] Routine Performed at [facility] Specimen Anatomical Collection Method Collection Time Receive d Time (Source) Location / / Volume Laterality 03/28/2001 9:30 AM 11/14/200 1 CDT 12:22 PM LEAD CUSTOMER SERVICE REPRESENTATIVE Blank Perez APRN, CNP LAB_1 Performing Organization Address City/State/ZIP Code Phon e Number [facility] [phone] [facility] [address] [address] documented in this encounter Visit Diagnoses Not on filedocumented in this encounter Care Teams Mountain Services Manager Relationship Specialty Start Date End Date Unassigned, Provider PCP - General 09/18/08 [address] [place] [address] documented as of this encounter
--- OUTSIDE RECORDS SUMMARY | 2022-02-06 10:34 | XMS_ITS | Encounter Summary ---
:1965 Author Organization [facility] Address [address] [place] [address] Care Team Providers Name Role Phone Juanito Panda MD Primary Care Provider Unavailable Encounter Details Date Type Department Care Team Description 12/20/2000 Orders Only [facility] Internal Med Juanito Chandra MD [address] [place] [address] Social History Tobacco Use Types Packs/Day Years Used Date Smoking Tobacco: Never Assessed Sex Assigned at Date Recorded Not on file documented as of this encounter Plan of Treatment Not on filedocumented as of this encounter Visit Diagnoses Not on filedocumented in this encounter Care Teams Supervisor Pipeline Relationship Specialty Start Date End Date Juanito Panda MD PCP - General 07/30/00 1 documented as of this encounter
--- OUTSIDE RECORDS SUMMARY | 2022-02-06 10:34 | XMS_ITS | Encounter Summary ---
:1965 Author Organization [facility] Address [address] [place] [address] Care Team Providers Name Role Phone Unassigned, Provider Primary Care Provider Unavailable Encounter Details Date Type Department Care Team Description 04/22/2001 Orders Only Blank Burleson, METAL ENGINEERING PROCESS WORKER, BLINTZE ROLLER [address] [place] [phone] [place] [address] (Wo rk) Social History Tobacco Use Types Packs/Day Years Used Date Smoking Tobacco: Never Assessed Sex Assigned at Date Recorded Not on file documented as of this encounter Plan of Treatment Not on filedocumented as of this encounter Procedures Procedure Name Priority Date/Time Associated Diagnosis Comme nts INSULIN,SERUM Routine 04/22/2001 7:26 AM Results for this QUALITY ASSURANCE AUDITOR procedure are i n the results section. LH Routine 04/22/2001 7:26 AM Results f or this QUALITY ASSURANCE AUDITOR procedure are i n the results section. FSH Routine 04/22/2001 7:26 AM Results f or this QUALITY ASSURANCE AUDITOR procedure are i n the results section. GLUCOSE - FASTING > Routine 04/22/2001 7:26 AM Re sults for this 8 HRS FASTING QUALITY ASSURANCE AUDITOR procedure are in the results section. documented in this encounter Results INSULIN,SERUM (04/22/2001 7:26 AM QUALITY ASSURANCE AUDITOR) [facility] Method Time Signature Insulin, 16 MIU/L [facility] Serum Insulin, Reference [facility] Serum range: 6 to 27 Comment Referred to [facility], 135[address] [facility] [place] Specimen Anatomical Collection Method Collection Time Receive d Time (Source) Location / / Volume Laterality 04/22/2001 7:26 AM 1 7:27 QUALITY ASSURANCE AUDITOR AM QUALITY ASSURANCE AUDITOR Blank Perez APRN, CNP LAB_1 Performing Organization Address City/[facility] Phon e Number [facility] [phone] [phone] (ABNORMAL) GLUCOSE - FASTING > 8 HRS FASTING (04/22/2001 7:26 AM QUALITY ASSURANCE AUDITOR) Analysis Performed At Patho logist Time Signature Glucose 136 (H) 70 - 110 [facility] mg/dl Hours Fasting 13 hours [facility] Specimen Anatomical Collection Method Collection Time Receive d Time (Source) Location / / Volume Laterality 04/22/2001 7:26 AM 1 7:27 QUALITY ASSURANCE AUDITOR AM QUALITY ASSURANCE AUDITOR Blank Perez APRN, CNP LAB_1 Performing Organization Address [facility] Phon e Number [email or web address] [phone] [address] LH (04/22/2001 7:26 AM QUALITY ASSURANCE AUDITOR) [facility] Method Time Signature LH 6.1 mIU/ml [facility] LH Expected Values- [facility] Prepubertal: ??<6.0 Follicular: ??1.9-12.5 Midcycle: ??8.7-76.3 Luteal: ??<1.0-16.9 Postmenopausal: ??5.0-52.3 Specimen Anatomical Collection Method Collection Time Receive d Time (Source) Location / / Volume Laterality 04/22/2001 7:26 AM 1 7:27 QUALITY ASSURANCE AUDITOR AM QUALITY ASSURANCE AUDITOR Blank Perez APRN, CNP LAB_[address] Performing Organization Address [facility] Phon e Number [id number] [phone] [address] FSH (04/22/2001 7:26 AM QUALITY ASSURANCE AUDITOR) [facility] gist Method Time Signature FSH 5.5 mIU/ml [facility] FSH Expected Values- [facility] Prepubertal: ??<5.0 Follicular: ??2.5-10.2 Midcycle: ??3.4-33.4 Luteal: ??1.5-9.1 Postmenopausal: ??23.0-116.3 Specimen Anatomical Collection Method Collection Time Receive d Time (Source) Location / / Volume Laterality 04/22/2001 7:26 AM 1 7:27 QUALITY ASSURANCE AUDITOR AM QUALITY ASSURANCE AUDITOR Blank Perez METAL ENGINEERING PROCESS WORKER, BLINTZE ROLLER LAB_1 Performing Organization Address City/State/ZIP Code Phon e Number [facility] [phone] [facility] [address] [address] documented in this encounter Visit Diagnoses Not on filedocumented in this encounter Care Teams Scrap Drop Crane Operator Relationship Specialty Start Date End Date Unassigned, Provider PCP - General 09/18/08 [address] [place] [address] documented as of this encounter
--- OUTSIDE RECORDS SUMMARY | 2022-02-06 10:34 | XMS_ITS | Encounter Summary ---
:1965 Author Organization [facility] Address [address] [place] [address] Care Team Providers Name Role Phone Juanito Panda MD Primary Care Provider Unavailable Encounter Details Date Type Department Care Team Description 03/28/2001 Orders Only [facility] Obstetrics and Anayeli Perez, TOUR CONSULTANT, DEICER REPAIRER ELECTRIC Gynecology [address] [address] [place], [place] [id number] [phone] Social History Tobacco Use Types Packs/Day Years [...] cc: AUDREY [facility] Radiology SP Blank Perez TOUR CONSULTANT, DEICER REPAIRER ELECTRIC PAPS documented in this encounter Visit Diagnoses Not on filedocumented in this encounter Care Teams Instructional Technology Instructor Relationship Specialty Start Date End Date Juanito Panda MD PCP - General 07/30/00 1 documented as of this encounter
--- OUTSIDE RECORDS SUMMARY | 2022-02-06 10:34 | XMS_ITS | Encounter Summary ---
:1965 Author Organization [facility] Address [address] [place] [address] Care Team Providers Name Role Phone Unassigned, Provider Primary Care Provider Unavailable Encounter Details Date Type Department Care Team Description 09/11/2000 Orders Only Juanito Young MD [address] [place], [place] [phone] Social History Tobacco Use [...] Results EKG TRACING (09/11/2000 4:50 PM CDT) [facility] Method Time Signature EKG See Separate [facility] Report Specimen Anatomical Collection Method Collection Time Receive d Time (Source) Location / / Volume Laterality 09/11/2000 4:50 PM 1 4:53 CDT PM CDT Juanito Panda MD EKG Performing Organization Address City/State/ZIP Code Phon e Number [facility] [phone] [facility] [address] [address] documented in this encounter Visit Diagnoses Not on filedocumented in this encounter Care Teams Hot Stick Man Relationship Specialty Start Date End Date Unassigned, Provider PCP - General 09/18/08 [address] [place] [address] documented as of this encounter
--- OUTSIDE RECORDS SUMMARY | 2022-02-06 10:34 | XMS_ITS | Encounter Summary ---
:1965 Author Organization [facility] Address [address], [place] [address] Care Team Providers Name Role Phone Greyson Gonzalez MD Primary Care Provider Encounter Details Date Type Department Care Team Description 03/28/[address] [facility] Obstetrics and Anayeli Giraldo, NAILER OPERATOR, VEHICLE MONITOR TECHNICIAN Gynecology [address] [facility] [address] [facility] [place] [address] [place] [address] [phone] Social History Tobacco Use Types Packs/Day Years Used Date Smoking Tobacco: Never Assessed Sex Assigned at Date Recorded Not on file documented as of this encounter Plan of Treatment Not on filedocumented as of this encounter Procedures Procedure Name Priority Date/Time Associated Diagnosis Comme nts GRAIN CLEANER CYTOLOGY Routine 03/28/2001 10:40 AM Results for this CDT procedure are i n the results section . documented in this encounter Results GRAIN CLEANER CYTOLOGY (03/28/2001 10:40 AM CDT) [facility] Method Time Signature Intelligence Manager Cytology Intelligence Manager Cytology Report [facility] Patient Name: PADMINI CHOI Taken: 03/28/01 Received: 04/01/01 Reported: 04/23/01 Physician(s): BLANK GIRALDO ([id number]) ? [id number] Final Cytologic Diagnosis Cervical Endocervical,routine: ? Satisfactory for evaluation. ??Endocervical cells and/or squamous metaplastic cells ??present. This pap smear was sent to [facility], [address] [place] [address] ??[place] ??[id number] for evaluation. ?? Their results are as follows. ? WITHIN NORMAL LIMITS (WNL) ? Comment qcs/04/23/01 Electronically Signed Out By [facility], [facility] ? Source of Specimen(s) Cervical Endocervical,routine [...] Address City/State/ZIP Code Phon e Number [address] [address] [place], [place] [phone] documented in this encounter Visit Diagnoses Not on filedocumented in this encounter Care Teams Wellness Manager Relationship Specialty Start Date End Date Greyson Gonzalez MD PCP - General 04/15/01 12/23/03 [address] [place], [place] [address] documented as of this encounter
--- OUTSIDE RECORDS SUMMARY | 2022-02-06 10:34 | XMS_ITS | Encounter Summary ---
:1965 Author Organization [facility] Address [address] [place] [address] Care Team Providers Name Role Phone Unassigned, Provider Primary Care Provider Unavailable Encounter Details Date Type Department Care Team Description 03/28/2001 Orders Only Blank Burleson, PRODUCTION PROOFREADER, CYCLE SPECIALIST [address] [place], [place] [address] [place] [address] (Wo rk) Social History [...] Perez APRN, CNP LAB_1 Performing Organization Address [facility]/ZIP Code Phon e Number [employer] [phone] [facility] [address] [place] [phone] TSH, SENSITIVE (03/28/2001 10:56 AM CDT) P athologist Signature TSH 1.59 0.30 - 5.00 [facility] uIU/ml Thyroid Meds No [facility] Specimen Anatomical Collection Method Collection Time Receive d Time (Source) Location / / Volume Laterality 03/28/2001 10:56 03/28/2001 AM CDT 10:57 AM CDT Blank Perez APRN, CNP LAB_1 Performing Organization Address [facility] Code Phon e Number [employer] [phone] [facility] [address] [place] [phone] TESTOSTERONE (03/28/2001 10:56 AM CDT) P athologist Signature Testosterone 34 20 - 80 [facility] ng/dl Specimen Anatomical Collection Method Collection Time Receive d Time (Source) Location / / Volume Laterality 03/28/2001 10:56 03/28/2001 AM CDT 10:57 AM CDT Blank Perez APRN, CNP LAB_1 Performing Organization Address [facility] Phon e Number [facility] [phone] [facility] [address] [place] [phone] HEMOGLOBIN, BLOOD (03/28/2001 10:56 AM CDT) P athologist Signature Hemoglobin 14.6 12.0 - 16.0 [facility] g/dl Specimen Anatomical Collection Method Collection Time Receive d Time (Source) Location / / Volume Laterality 03/28/2001 10:56 03/28/2001 AM CDT 10:57 AM CDT Blank Perez APRN, CNP LAB_1 Performing Organization Address City/[facility] Phon e Number [facility] [phone] [facility] [address] [place] [address] (ABNORMAL) CHOLESTEROL LIPID PANEL FAST >12HR FAST (03/28/2001 10:56 AM CDT) Component Value Ref Test Analysis Performed At [facility] Range Method Time Signature Cholesterol 225 [...] CDT 10:57 AM CDT Blank Perez APRN, CYCLE SPECIALIST LAB_1 Performing Organization Address [facility] Phon e Number [facility] [phone] [address] documented in this encounter Visit Diagnoses Not on filedocumented in this encounter Care Teams Staffing Operations Manager Relationship Specialty Start Date End Date Unassigned, Provider PCP - General 09/18/[address] [place] [address] documented as of this encounter
--- OUTSIDE RECORDS SUMMARY | 2022-02-06 10:34 | XMS_ITS | Encounter Summary ---
:1965 Author Organization [email or web address] Address [address] [address] Care Team Providers Name Role Phone Juanito Panda MD Primary Care Provider Unavailable Reason for Visit Reason Comments PRE-OP EXAM VIA INTERFACE Encounter Details Date Type Department Care Team Description 09/11/2000 Office Visit SP INTERNAL MED II Juanito Panda, DISC DIS NEC/NOS-UNSPEC; [address] [facility] [address] [place]; [place] [address] PREOP EXA M OTHER SPECIFIED; FOLLOW-UP EXAM [...] and symmetric in upper and lower extremities. Business Info Consultant strength is full and equal. Remainder of [...] examination documented in this encounter Care Teams Bit Shaver Relationship Specialty Start Date End Date Juanito Panda MD PCP - General 07/30/00 1 documented as of this encounter
--- OUTSIDE RECORDS SUMMARY | 2022-02-06 10:34 | XMS_ITS | Encounter Summary ---
:1965 Author Organization [facility] Address [address] [place] [address] Care Team Providers Name Role Phone Juanito Panda MD Primary Care Provider Unavailable Encounter Details Date Type Department Care Team Description 09/21/2000 Office Visit HOSPITALIST PROGRAM Sg Pal, LOW BACK PAIN (CHRONIC)>6 WE EKS; [address] MBBS GASTRITIS/DUODEN NOS W/O HEMORRH SOUTH [address] [place], [place] [phone] [place] [address] (Wo rk) Social History Tobacco Use Types Packs/Day Years Used Date Smoking Tobacco: Never Assessed Sex Assigned at Date Recorded Not on file documented as of this encounter Plan of Treatment Not on filedocumented as of this encounter Visit Diagnoses Diagnosis Other unspecified back disorder Unspecified gastritis and gastroduodenit is without mention of hemorrhage documented in this encounter Care Teams Electric Lineman Relationship Specialty Start Date End Date Juanito Panda MD PCP - General 07/30/00 1140 1 documented as of this encounter
--- OUTSIDE RECORDS SUMMARY | 2022-02-06 10:34 | XMS_ITS | Encounter Summary ---
:1965 Author Organization [facility] Address [address] [address] Care Team Providers Name Role Phone Juanito Panda MD Primary Care Provider Unavailable Encounter Details Date Type Department Care Team Description 03/18/2001 Orders Only [facility] Internal Med Greyson Romero MD [address] [facility] [address] [place] [address] [place] [address] [phone] (Wo rk) Social History Tobacco Use Types Packs/Day Years Used Date Smoking Tobacco: Never Assessed Sex Assigned at Date Recorded Not on file documented as of this encounter Plan of Treatment Not on filedocumented as of this encounter Visit Diagnoses Not on filedocumented in this encounter Care Teams Camera Storage Clerk Relationship Specialty Start Date End Date Juanito Panda MD PCP - General 07/30/000 1 documented as of this encounter
--- NOTE | 2022-02-06 11:50 | W.ANESCHARGE ---
Anesthesia Charges Start Date/Time Anesthesia Start Date: 02/06/22 Anesthesia Start Time: 11:20 Stop Date/Time Anesthesia Stop Date: 02/06/22 Anesthesia Stop Time: 11:50 Summary Emergency: No
== END 2022-02-06 10:08 | disposition home or self-care (01) ==
LOC: OP CLINIC 10:08
PROVIDERS: PCP Nurse Practitioner Family; Visit Provider Surgery
DX: K21.9 Gastro-esophageal reflux disease without esophagitis (principal); K31.89 Other diseases of stomach and duodenum; K31.7 Polyp of stomach and duodenum
CPT/HCPCS: 00731; 43239; 88305; J2704; J3490

== ENCOUNTER 2022-05-09 13:17 | Outpatient (CLI) | payer BC, SELFPAY ==
--- OUTSIDE RECORDS SUMMARY | 2022-05-09 13:20 | XMS_ITS | Clinical Summary ---
:1965 Author Organization [facility] [place] [address] Care Team Providers Name Role Phone Sudha Greene COLOR MAKER FORMULATOR Primary Care Provider Allergies Active Allergy Reactions Severity Noted Date Comments Erythromycin Rash Low 04/13/2008 As a child Medications Medication Sig Dispensed Refills Start Date End Date Status cyclobenzaprine Take 1 tablet by 30 tablet 1 08/12/2020 Active (FLEXERIL) 10 mg mouth 3 times tabletIndications: daily. Sciatica of right side aspirin (ECOTRIN) 81 mg Take 1 Tablet 0 03/10/2022 Active enteric coated tablet (81 mg) by mouth once daily. DULoxetine (CYMBALTA) 30 Take 3 Capsules 0 2 Active mg Delayed-release (90 mg) by mouth capsule once daily. gabapentin (NEURONTIN) Take 1 Capsule 0 03/10/2022 Active 300 mg capsule (300 mg) by mouth three times daily. metFORMIN (GLUCOPHAGE) Take 1 Tablet 0 03/10/2022 Active 1,000 mg tablet (1,000 mg) by mouth two times daily with meals. simvastatin (ZOCOR) 20 Take 1 Tablet 0 03/10/2022 Active mg tablet (20 mg) by mouth at bedtime. topiramate (TOPAMAX) 50 Take 1 Tablet 0 03/10/2022 Active mg tablet (50 mg) by mouth two times daily. Active Problems Not on file Encounters Date Type Specialty Care Team Description 03/28/2022 Telephone Cora Ibarra MD Results (CT angiogram) 2022 Hospital Encounter Cora Ibarra MD A typical chest pain 2022 Travel 03/10/2022 Office Visit Cora Ibarra MD Consult 03/10/2022 Orders Only Cora Ibarra MD <No sca ns attached> 02/06/2022 Lab Requisition Luisa Anthony MD from Last 3 Months Social History Tobacco Use Types Packs/Day Years Used Date Never Smoker Smokeless Tobacco: Never Used Alcohol Use Standard Drinks/Week Comments Never 0 (1 standard drink = 0.6 oz pure alcoho l) Alcohol Habits Answer Date Recorded How often do you have a drink containing alcohol? Never 08/13/2020 How many drinks containing alcohol do you have on a typical Not asked day when you are drinking? How often do you have six or more drinks on one occasion? No t asked Comment: Not asked Sex Assigned at Date Recorded Not on file Obstetrics History Last Filed Vital Signs Vital Sign Reading Time Taken Comments Blood Pressure 142/66 2022 1:23 PM CDT Pulse 80 2022 2:16 PM CDT Temperature 36.9 ??C (98.4 ??F) 08/12/2020 6:13 PM FISH HATCHERY SPECIALIST Respiratory Rate 14 03/10/2022 11:19 AM CDT Oxygen Saturation 97% 08/12/2020 6:13 PM FISH HATCHERY SPECIALIST Inhaled Oxygen Concentration - - Weight 79.4 kg (175 lb) 2022 1:23 PM CDT Height 150 cm (4' 11.06) 2022 1:23 PM CDT Body Mass Index 35.28 2022 1:23 PM CDT Plan of Treatment Upcoming Encounters Date Type Specialty Care Team Description 05/09/2022 Orders Only [facility] Maintenance Due Date Last Done Comments Tdap 1974 Depression screening for age 12+ 1975 HIV for age 15-65 1978 BMI (ht and wt on same day) for age 1003/27/1981 18+ Hepatitis C screening for age 18-79 1981 Tetanus booster 1983 Colonoscopy through age 75 2008 Lipids for age 45-75 2008 Mammogram for age 45-75 2008 Zoster (shingles) series for age 50+ 2013 (1 of 2) COVID-19 vaccine series (4 - Booster 08/19/2021 06/24/2021, 09/24/2020, for Pfizer series) 09/03/2020 Influenza for age 50-64 02/09/2022 Pap test for age 21-65 10/14/2024 10/14/2021, 10/14/2021 Procedures Procedure Name Priority Date/Time Associated Diagnosis Comme nts CT CARDIAC CORONARY Routine 2022 2:05 PM Atypical chest pain Results for this ARTERIES DUAL READ CDT procedure are in the results section. CREATININE,ISTAT Routine 2022 1:38 PM Resul ts for this CDT procedure are i n the results section. LAB TRACKING EVENT Routine 02/06/2022 11:55 AM CDT PATH TISSUE EXAM Routine 02/06/2022 11:55 AM Resu lts for this CDT procedure are i n the results section. from Last [address] CARDIAC CORONARY ARTERIES DUAL READ (2022 2:05 PM CDT) Anatomical Region Laterality Modality HEART Computed Tomography Specimen (Source) Anatomical Collection Method Collection Time Re ceived Time Location / / Volume Laterality 2022 2:06 PM CDT Impressions 2022 4:24 PM CDT ??No significant noncardiovascular findings. Please note that all CT scans at this [facility] use dose modulation, iterative reconstruction and/or weight-b ased dosing when appropriate to reduce radiation dose to as low as reaso nably achievable. ?? Navid Schumacher M.D. Diagnostic/Musculoskeletal Radiologist [email or web address] / Narrative 2022 4:24 PM CDT ?[facility] ? Cardiac CT Report ??MRN: ?[id number] ?Name: ?MEGAN WONG ?: ?1965-1 0-17 ?Scan Date: ?? 2022 14:06:42 ? Electronically signed by Zachary Bhandari 15:00:18 VITALS HEIGHT: 59.06 in ?(150.00 cm) WEIGHT: 175.00 lbs ?(79.38 kgs) BSA: 1.74 m^2 BMI: 35 kg/m^2 BP: 142 / 66 mmHg BASELINE HR: 50 BPM HEART RHYTHM: Normal Sinus Rhythm FINAL IMPRESSION 1. Mild Non-obstructive coronary atheros clerosis 2. Total coronary artery calcium score 1 0. DYER percentile based on age, gender, and race is 74%. 3. Symptoms are not from a coronary lesi on. Patient exhibits elevated coronary ather osclerosis burden and will likely benefit from aggressive risk factor modification. RECOMMENDATIONS: \n NOTE FOR PATIENT: Results are automatica lly released to your [employer] account once available, in compliance with federal re gulations. ??This means that you may see your results before your provider has had a chance to review them . ??Please allow 2-3 business days for your provider to comment on the results. STUDY QUALITY: Study quality is adequate . Misalignment(s) due to patient breathing. CAD-RADS: CAD-RADS Classification 1 (<25 % stenosis). CALCIUM SCORING: Total coronary artery c alcium score 10. DYER percentile based on age, gender, and race is 74%. DOMINANCE: Right dominant coronary arter y system. LM: The LM is normal. LAD: The proximal LAD has partially calc ified atherosclerosis. ??There is a <25% proximal LAD stenosis. ?There is no mid LAD stenosis. ?There is no distal LAD stenosis. D1: The first diagonal is normal. D2: The second diagonal is normal. LCX: The LCx is normal. OM1: The first obtuse marginal is normal . OM2: The second obtuse marginal is francisca l. LEFT PLB: The left posterolateral branch is normal. RCA: The RCA is normal. RIGHT PDA: The right PDA is normal. RIGHT PLB: The right posterolateral bran ch is normal. OTHER FINDINGS: Thoracic aorta: ??Aortic sinus maximum cusp-cusp: 25x23 x28 mm. ??Ascending aorta maximum diameters: 28 x29h mm. ??Descending thoracic aorta maximum marcy meters: 20x21 mm. Pericardium: No effusion. Left atrium: Normal contrast opacificati on. Atrial septum: There is evidence of shun t. Pulmonary veins: Normal anatomy. CALCIUM SCORING TABLE . . ? Number of Lesions Pattern of Calcium Volume Total Score +-------+ + ---------+--------+ + LM ? 0 ? 0 LAD ? 0 ? 5 LCx ? 0 ? 0 RCA ? 0 ? 5 Ramus ? 0 ? 0 '-------+ + ---------+--------+ ' SCAN INFO TEST TYPE: ??Calcium score, Coronary CT Angiography SCANNER SOLUTION LEAD: ??SIEMENS SCANNER MODEL: ??IN-PIPE TECHNOLOGY DOSE REDUCTION ALGORITHM: ??Prospective/ [id number] PHASE UNITS: ??% START PHASE: ??65 % END PHASE: ??75 % EKG GATED: ??Yes PRE-CONTRAST: ??Yes POST-CONTRAST: ??Yes 3D RECONSTRUCTION: ??Yes GENERAL ?CONTRAST AGENT ?CONTRAST AGENT USED?: ??Yes ?TYPE: ??Omnipaque 350 ?DOSE: ??100 ml ?RATE: ??6.5 ml/s ?ROUTE: ??IV ?ARM: ??Right ?BOLUS TECHNIQUE: ??Biphasic ?SERUM CREATININE: ??0.6 mg/d L ?GFR: ??108.75 ml/min/1.73m^2 ?CREATININE DATE: ??2022-03-11 00:00:00 ?CT CONTRAST REACTION: ??None ?MEDICATION ADMINISTERED DURING SCA N ?TYPE: ??Nitroglycerin, subli ngual, B-Blockers ?NITROGLYCERIN, TOTAL DOSE: ? ?0.8 mg ?B-DEVENDRA TYPE: ??Oral, IV ?B-DEVENDRA NAME, ORAL: ??Meto prolol tartrate ?B-DEVENDRA NAME, IV: ??Metopr olol tartrate ?B-BLOCKERS, ORAL DOSE: ??50 mg ?B-BLOCKERS, IV DOSE: ??20 mg ?NUMBER OF DOSES: ??2 ?RADIATION DOSE ?DLP: ??404 ?KV: ??100 ?SETUP ?PATIENT TYPE: ??Outpatient ?REASON(S) FOR SCAN: ??Chest pain ?REFERRING PHYSICIAN: ??CORA IBARRA ?ATTENDING PHYSICIAN: ??CORA IBARRA ?TECHNOLOGIST: ??Phillip Hussein BILLING Patient Account ?[id number] ICD10 Codes ?R07.89 Report generated by abeba De Los Santos of [employer] For Patients: As a result of the ntury Cures Act, medical imaging exams and procedure reports are released immediately into your electronic medical record. ??You may view this repo rt before your referring provider. ?? If you have questions, please contact [facility] care provider. OVER-READ ??OVER-READ ??OVER-READ OVER-READ: DETAILED RADIOLOGY EXTRACARDI AC OVER-READ OF CARDIAC CT 2022 TECHNIQUE: ??Please see cardiology repor t for technical information. ??100 cc Omnipaque-350 intravenous contrast. ? ? This exam is being performed in [facility] with the services provided by the [facility] ([facility]). CLINICAL HISTORY: ??Cardiac over-read. ? ? FINDINGS: ??No infiltrate or suspicious nodules within the included lung valdez. ??No pleural effusion. ??There a re mild degenerative changes of the spine. ??No enlarged inferior hilar lymp h nodes. ?? Cora Ibarra MD CT CREATININE,ISTAT (2022 1:38 PM CDT) athologist Signature CREATININE, 0.60 0.57 - 2022 [facility] POCT 1.11 mg/dL 1:43 PM CDT LABORATORY-CENT RAL LABORATORY eGFR >90 >90 2022 [facility] mL/min/1.7 1:43 PM CDT LABORATORY-CENT 3m2 RAL LABORATORY Comment: As of 2021, eGFR is calcu lated by the CKD-EPI creatinine equation without race adjustment. eGFR can be inf luenced by muscle mass, exercise, and diet. The reported eGFR is an estimation only and is only applicable if the renal function is stable. Specimen Anatomical Collection Method Collection Time Receive d Time (Source) Location / / Volume Laterality Blood BLOOD SPECIMEN / 2022 1:38 PM 03/27 1:43 Unknown CDT PM CDT Cora Ibarra MD CHEMISTRY Performing Organization Address [facility] Phon e Number [facility] [address] [place] [address] LABORATORY-CENTRAL 1999 LABORATORY LAB TRACKING EVENT (02/06/2022 11:55 AM CDT) Specimen Anatomical Collection Method Collection Time Receive d Time (Source) Location / / Volume Laterality Other (Other) Client Collect / 02/06/2022 11:55 2021 Unknown AM CDT 10:30 PM CDT Luisa Anthony MD LAB BILL ONLY Performing Organization Address [facility] Phon e Number [facility] [address] [place] [address] LABORATORY-CENTRAL [facility] LABORATORY PATH TISSUE EXAM (02/06/2022 11:55 AM CDT) Component Value Ref Test Analysis Performed At [facility] Range Method Time Signature Case Report Pathology Report ?Case: [id number] ? 02/08/2022 [facility] Authorizing Provider: ??Luisa Marshall MD ??Collected: ? 02/06/2022 1155 ? 2:56 PM HEALTH Ordering Location: ? [facility] CENTRAL LAB ?Received: ?02/07/2022 0904 ? CDT [facility] JOSE ANGELC Pathologist: ? Gonzalez Garcia ? ENTRAL ? MD KARRIE ? LABORATORY Specimens: ?? A) - Antrum ? B) - Stom ach Biopsy ? Final A) STOMACH, BIOPSY: 02/08/2022 [facility] Electronically Diagnosis 1. Normal gastric body mucosa ?? 2:56 PM HEALTH signed by 2. Negative for Helicobacter CDT L ABORATORY-C SERENE Garcia B) STOMACH, RANDOM, BIOPSY: KENDALL GOODEN IV, MD on 1. Mild non-erosive reactive gastropathy (see comment) 02/08/2022 at ?? a. Sampling: Body 2:56 PM ?? b. Distribution: Body 2. Negative for inflammation, atrophy and Helicobacter Comment 02/08/2022 [facility] B) The likely etiology is an ongoing non-inflammatory type mucosal injury due to a chemical type of injury; this may be due to ingestion of non-steroidal anti-inflammatory drugs, aspirin (via prostaglan 2:56 PM HEALTH din-mediated injury), excess alcohol, corticosteroids, or bile/alkaline reflux, the latter usually in the setting of a gastroenteric anastomosis. CDT LABORATORY-C ENTRAL LABORATORY Clinical Ms. Wong is a 56 y.o. who presents with reflux symp toms. 02/08/2022 [facility] Information 2:56 PM HEALTH EGD findings include: CDT LABORATO RY-C - Antral erythema ENTRAL - Endoscopically normal duodenum and esophagus LABORATORY Gross A) Received in formalin is a mi mucosal fragment measuring 3 mm in greatest dimension, which is entirely submitted in one cassette. It is labeled with the patient's name and designated gastric antrum biopsies. 02/08/2022 [facility] Description 2:56 PM HEALTH B) Received in formalin are 3 mi mucosal fragments averaging 3 mm in greatest dimension, which are entirely submitted in one cassette. It is labeled with the patient's name and designated random stomach biopsies. CDT LABORATORY-C ENTRAL iJm Terry 02/07/2022 10:21 AM LABORATORY Microscopic The final 02/08/2022 [facility] Description diagnosis is 2:56 PM HEALTH based on CDT LABORATORY-C microscopic ENTRAL examination of LABORATORY appropriate sections of all specimens. Additional 02/08/2022 [facility] Information Interpreted at [facility], Central Laboratory - [address], [place] [address] 2:56 PM HEALTH CDT LABORATORY-C ENTRAL LABORATORY Specimen Anatomical Collection Method Collection Time Receive d Time (Source) Location / / Volume Laterality Other (Antrum) 02/06/2022 11:55 9:04 AM CDT AM CDT Specimen 02/06/2022 11:55 02/07/2022 9:04 (specimen) AM CDT AM CDT (Stomach Biopsy) Luisa Anthony MD PATHOLOGY/CYTOLOGY Performing Organization Address City/State/ZIP Code Phon e Number [facility] [address] [place] [address] LABORATORY-CENTRAL 2000 LABORATORY from Last 3 Months Insurance Payer Benefit Plan / Subscriber ID Effective Dates Phone Addre ss Type Group [employer] BL[employer] OF [id number] 2016-Present [address] [address] [place] [address] [employer] OF [id number] 2016-Present [address] [address] [place] [address] Megan Wong Personal/Family Self [address] (Home) [place] [address] Care Teams Solutions Development Analyst Relationship Specialty Start Date End Date Sudha Greene NP PCP - General Emergency Medicine 03/27/22 [address] [place] [address]
--- OUTSIDE RECORDS SUMMARY | 2022-05-09 13:20 | XMS_ITS | Encounter Summary ---
:[address] [facility] Address [address] [place] [address] Care Team Providers Name Role Phone Unavailable Primary Care Provider Unavailable Encounter Details Date Type Department Care Team Description 11/16/2021 Orders Only Department [place] [facility] [address] [place] [address] [place] [address] Social History Tobacco Use Types Packs/Day Years Used Date Smoking Tobacco: Never Smokeless Tobacco: Never Sex Assigned at Date Recorded Female 11/16/2021 10:41 AM CDT documented as of this encounter Plan of Treatment Not on filedocumented as of this encounter Visit Diagnoses Not on filedocumented in this encounter
--- OUTSIDE RECORDS SUMMARY | 2022-05-09 13:20 | XMS_ITS | Encounter Summary ---
:1965 Author Organization [facility] Address [address] [place] [address] Care Team Providers Name Role Phone Unavailable Primary Care Provider Unavailable Encounter Details Date Type Department Care Team Description [facility] Dx[facility] [address] [facility] [address] [place] [address] [place], [place] [phone] Social History Tobacco Use Types Packs/Day Years Used Date Smoking Tobacco: Never Assessed Sex Assigned at Date Recorded Female 11/16/2021 10:41 AM CDT documented as of this encounter Plan of Treatment Not on filedocumented as of this encounter Visit Diagnoses Diagnosis Pain Joint - Primary documented in this encounter
--- OUTSIDE RECORDS SUMMARY | 2022-05-09 13:20 | XMS_ITS | Encounter Summary ---
:1965 Author Organization [facility] Address [address] [place] [address] Care Team Providers Name Role Phone Unavailable Primary Care Provider Unavailable Reason for Referral Outpatient (Routine) - Closed Specialty Diagnoses / Procedures Referred By Contact Refer red To Contact Diagnoses Recurrent Hypersomnia Obstructive Sleep Apnea Adult Chrissie Paredes M.D., [facility] Procedures Polysomnography (PSG): Full Diagnostic PSG [facility] [address] [phone] Referral ID Status Reason Start Date Expiration Date Visits Requ ested Visits Authorized [id number] Closed 11/16/2021 11/16/2022 1 1 Reason for Visit Outpatient (Routine) - Closed Specialty Diagnoses / Procedures Referred By Contact Refer red To Contact Diagnoses Recurrent Hypersomnia Obstructive Sleep Apnea Adult Chrissie Paredes M.D., [facility] Procedures Polysomnography (PSG): Full Diagnostic PSG [facility] [address] [place] [phone] Referral ID Status Reason Start Date Expiration Date Visits Requ ested Visits Authorized [id number] Closed 11/16/2021 11/16/2022 1 1 Encounter Details Date Type Department Care Team Description 03/02/2022 - Hospital [facility]counter [facility] Chrissie Paredes Hypersomnia; 03/05/2022 Medicine in [place], Obstructive Sle ep Apnea Adult [facility]ina [facility] [place] [address] [place], [place] [phone] Social History Tobacco Use Types Packs/Day Years Used Date Smoking Tobacco: Never Smokeless Tobacco: Never Sex Assigned at Date Recorded Female 11/16/2021 10:41 AM CDT documented as of this encounter Medications at Time of Discharge Medication Sig Dispensed Refills Start Date End Date blood sugar diagnostic 1 strip. 0 04/11/2014 (glucose blood) strips cholecalciferol (VITAMIN Twice A Day 0 D3) 50 mcg (2,000 Unit) tablet cyanocobalamin, vitamin Daily 0 02/16/2021 B-12, 1,000 mcg tablet extended release DULoxetine (CYMBALTA) 30 Taking 30 mg with 0 11/[address] capsule 60 mg for total of 90 mg daily. DULoxetine (CYMBALTA) 60 Take 60 mg by mouth [address] capsule daily. fluticasone propionate Daily 0 04/20/2021 (FLONASE) 50 mcg/actuation nasal spray gabapentin (NEURONTIN) 300 One in the a.m., 0 03/2021 mg capsule one in the afternoon, and two at bedtime. ibuprofen (ADVIL,MOTRIN) Take 800 mg by 0 800 mg tablet mouth. metFORMIN (GLUCOPHAGE) 500 Take 1,000 mg by 0 mg tablet mouth 2 (two) times a day with meals. omeprazole (PriLOSEC) 20 Twice A Day 0 05/03/[address] capsule polycarbophil (FIBERCON) 0 625 mg tablet simvastatin (ZOCOR) 20 mg Daily 0 08/08/2019 tablet SUMAtriptan (IMITREX) 25 As Directed as 0 021 mg tablet needed topiramate (TOPAMAX) 50 mg Twice A Day 0 10/12/19 21 tablet aspirin 81 mg chewable Chew 81 mg daily. 0 03/16/2022 tablet documented as of this encounter Plan of Treatment Not on filedocumented as of this encounter Procedures Procedure Name Priority Date/Time Associated Diagnosis Comme nts POLYSOMNOGRAPHY Routine 03/03/2022 3:13 AM Recurrent Hyp ersomnia Results for this CDT Obstructive Sleep procedure are in Apnea Adult the results section. documented in this encounter Results Polysomnography (PSG): Full Diagnostic PSG (03/03/2022 3:13 AM CDT) Specimen (Source) Anatomical Location Collection Method / Collectio n Time Received Time / Laterality Volume Narrative ONBASE - 03/09/2022 8:04 AM CDT THERAPEUTIC PAP TITRATION Summary A therapeutic trial of CPAP (continuous positive airway pressure) was tried, using a eROI FX inte rface. ??Using CPAP at a pressure of Auto titrating 6-17 cm H2O with a CFl ex of 0, the disordered breathing noted during the diagnostic study was we ll-controlled. ??Supplemental oxygen was not used.. ??A chin-strap was not used. ??Oxygen saturation remained at or above an SpO2 of 90%, 100 % of the time. ??The patient's own machine was AutoSet from 5-17 cm water p ressure but increasing the minimum pressure to six improved her sleep disor dered breathing substantially Clinical Interpretation Successful trial of positive airway pres sure (PAP). ??Study limitations: No technical limitations occurred during study.. ??Patient should have her auto titrating lower pressure increased from 5-6. Chrissie Paredes M.D., [facility] ORDERABLES Performing Organization Address City/State/ZIP Code Phon e Number ONBASE ONBASE NA documented in this encounter Visit Diagnoses Diagnosis Recurrent Hypersomnia Obstructive Sleep Apnea Adult documented in this encounter
--- OUTSIDE RECORDS SUMMARY | 2022-05-09 13:20 | XMS_ITS | Clinical Summary ---
:1965 Author Organization [facility] Address [address] [place] [address] Care Team Providers Name Role Phone Unavailable Primary Care Provider Unavailable Source Comments Patient records contain information from all sites at [facility]. For routine questions regarding patient records, call [phone] during business hours, M-F 8:00 AM - 5:00 PM Central Time. Record requests for emergency care only can be directed to [phone] at any time.[facility] Allergies Active Allergy Reactions Severity Noted Date Comments Azithromycin Other (see comments) 01/10/2022 Erythromycin Rash 11/16/2021 Medications Medication Sig Dispensed [...] A Day 0 10/11/2020 Active mg tablet ibuprofen (ADVIL,MOTRIN) Take 800 mg by 0 Active 800 mg tablet mouth. DULoxetine (CYMBALTA) 30 Taking 30 mg 0 10/14/[address] capsule with 60 mg for total of 90 mg daily. DME CPAPIndications: DME Order 1 each 11 03/16/2022 Active Obstructive Sleep Apnea Adult blood sugar diagnostic 1 strip. 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 03/16/2022 Office Visit Neurology Chrissie Paredes Obstructive Sle ep John Jones, Apnea Adult (Pr imary M.P.H. Dx) 03/03/2022 - Hospital Encounter Sleep Medicine Chrissie Paredes Recurrjeramie nt Hypersomnia; 03/06/2022 John Jones, Obstructive Sle ep Apnea Adult M.P.H. 03/02/2022 - Hospital Encounter Sleep Medicine Chrissie Paredes Recurrjeramie nt Hypersomnia; 03/05/2022 John Jones, Obstructive Sle ep Apnea Adult M.P.H. from Last 3 Months Social History Tobacco Use Types Packs/Day Years Used Date Smoking Tobacco: Never Smokeless Tobacco: Never Tobacco Cessation: Counseling Given: Not Answered Sex Assigned at Date Recorded Female 11/16/2021 10:41 AM CDT Last Filed Vital Signs Vital Sign Reading Time Taken Comments Blood Pressure 130/71 04/24/2022 10:52 AM PINION AND WHEEL TRUER Pulse 78 04/24/2022 10:52 AM PINION AND WHEEL TRUER Temperature 36.4 ??C (97.5 ??F) 03/16/2022 10:13 AM CDT Respiratory Rate - - Oxygen Saturation 97% 11/16/2021 10:41 AM CDT room a ir Inhaled Oxygen Concentration - - Weight 83.5 kg (184 lb 1.4 oz) 04/24/2022 10:52 AM PINION AND WHEEL TRUER Height 156 cm (5' 1.42) 11/16/2021 10:41 AM CDT Body Mass Index 34.31 11/16/2021 10:41 AM CDT Plan of Treatment Health Maintenance Due Date Last Done Comments CT Colonography 1965 Cologuard 1965 Colonoscopy 1965 Colorectal Cancer Screening 1965 FIT 1965 HIV Screening 1965 Hepatitis B Vaccines (1 of 1965 3 - 3-dose series) Hepatitis C Screening 1965 Mammogram 1965 Zoster Vaccines (1 of 2) 2013 Depression Screening 06/11/2021 (Annual PHQ-2) COVID-19 Vaccine (4 - 08/19/2021 06/24/2021, 09/24/2020, Booster for Pfizer series) 09/03/2020 [...] patient 's age to complete this topic Procedures Procedure Name Priority Date/Time Associated Diagnosis Comme nts POLYSOMNOGRAPHY Routine 03/03/2022 3:13 AM Recurrent Hyp ersomnia Results for this CDT Obstructive Sleep procedure are in Apnea Adult the results section. from Last 3 Months Results Polysomnography (PSG): Full Diagnostic PSG (03/03/2022 3:13 AM CDT) Specimen (Source) Anatomical Location Collection Method / Collectio n Time Received Time / Laterality Volume Narrative ONBASE - 03/09/2022 8:04 AM CDT THERAPEUTIC PAP TITRATION Summary A therapeutic trial of CPAP (continuous positive airway pressure) was tried, using a [employer] Mirage FX inte rface. ??Using CPAP at a [...] Code Phon e Number ONBASE ONBASE NA from Last 3 Months Insurance Payer Benefit Plan / Subscriber ID Effective Dates Phone Addre ss Type Group [employer] [facility] [id number] 2016-Preschris [phone] [address] [facility] [address] [place] [address]
--- OUTSIDE RECORDS SUMMARY | 2022-05-09 13:20 | XMS_ITS | Encounter Summary ---
:1965 Author Organization [facility] Address [address] [place] [address] Care Team Providers Name Role Phone Unavailable Primary Care Provider Unavailable Reason for Referral Outpatient (Routine) - Authorized Specialty Diagnoses / Procedures Referred By Contact Refer red To Contact Diagnoses Recurrent Hypersomnia Obstructive Sleep Apnea Adult Chrissie Paredes M.D., [facility] Procedures Multiple sleep latency test (MSLT) M.P.H. [address] [phone] Referral ID Status Reason Start Date Expiration Date Visits V isits Requested Authorized [id number] Authorized 11/16/2021 11/16/2022 1 1 Reason for Visit Outpatient (Routine) - Authorized Specialty Diagnoses / Procedures Referred By Contact Refer red To Contact Diagnoses Recurrent Hypersomnia Obstructive Sleep Apnea Adult Chrissie Paredes M.D., [facility] Procedures Multiple sleep latency test (MSLT) M.P.[facility] [address] [place] [phone] Referral ID Status Reason Start Date Expiration Date Visits V isits Requested Authorized [id number] Authorized 11/16/2021 11/16/2022 1 1 Encounter Details Date Type Department Care Team Description 03/03/2022 - Hospital Encounter Center for Sleep Chrissie Paredes Hypersomnia; 03/06/2022 Medicine in John Jones, Obstructive Sle ep Apnea Adult Marcelina M.P.H. [place] [address] [place], [place] [phone] Social History Tobacco Use Types Packs/Day [...] Name Type Priority Associated Diagnoses [facility] Routine Recurrent Hypers omnia Once for 1 Occurrences latency test (MSLT) Obstructive Sleep sta rting 03/03/2022 Apnea Adult until 2 documented as of this encounter Visit Diagnoses Diagnosis Recurrent Hypersomnia Obstructive Sleep Apnea Adult documented in this encounter
--- OUTSIDE RECORDS SUMMARY | 2022-05-09 13:20 | XMS_ITS | Encounter Summary ---
:1965 Author Organization [facility] Address [address] [place] [address] Care Team Providers Name Role Phone Unavailable Primary Care Provider Unavailable Encounter Details Date Type Department Care Team Description 10/11/2021 Clinical Communication Department of Family Elsewhere, Pcp Medicine, [facility], in [address] [phone] Social History Tobacco Use Types Packs/Day Years Used Date Smoking Tobacco: Never Assessed Sex Assigned at Date Recorded Female 11/16/2021 10:41 AM CDT documented as of this encounter Plan of Treatment Not on filedocumented as of this encounter Visit Diagnoses Not on filedocumented in this encounter
--- OUTSIDE RECORDS SUMMARY | 2022-05-09 13:20 | XMS_ITS | Encounter Summary ---
:1965 Author Organization [facility] Address [address] [place] [address] Care Team Providers Name Role Phone Unavailable Primary Care Provider Unavailable Reason for Referral Outpatient (Routine) - Closed Specialty Diagnoses / Procedures Referred By Contact Refer red To Contact Sleep Medicine Chrissie Paredes M.D., [facility] M.P.H[facility] [address], [place] [phone] Referral ID Status Reason Start Date Expiration Date Visits Requ ested Visits Authorized [id number] Closed 03/16/2022 03/15/2025 1 1 Reason for Visit Reason Comments Follow-up Sleep study Outpatient (Routine) - Closed Specialty Diagnoses / Procedures Referred By Contact Refer red To Contact Sleep Medicine Chrissie Paredes M.D., [facility] M.P.[facility] [address], [place] [phone] Referral ID Status Reason Start Date Expiration Date Visits Requ ested Visits Authorized [id number] Closed 11/16/2021 11/16/2022 1 1 Encounter Details Date Type Department Care Team Description 03/16/2022 Office Visit Department of Chrissie Paredes, Obstructiv e Sleep Apnea Neurology in John, M.P.H. Adult (Primary Dx) [place], [place] [address] [phone] Social History Tobacco Use Types Packs/Day Years Used Date Smoking Tobacco: Never Smokeless Tobacco: Never Tobacco Cessation: Counseling Given: Not Answered Sex Assigned at Date Recorded Female 11/16/2021 10:41 AM CDT documented as of this encounter Last Filed Vital Signs Vital Sign Reading Time Taken Comments Blood Pressure 109/72 03/16/2022 10:13 AM CDT Pulse 80 03/16/2022 10:13 AM CDT Temperature 36.4 ??C (97.5 ??F) 03/16/2022 10:13 AM CDT Respiratory Rate - - Oxygen Saturation - - Inhaled Oxygen Concentration - - Weight 84 kg (185 lb 3 oz) 03/16/2022 10:13 AM CDT Height - - Body Mass Index 34.52 11/16/2021 10:41 AM CDT documented in this encounter Progress Notes Chrissie Paredes M.D., M.P.H. - 03/16/2022 10:15 AM CDT Sleep Clinic SUBJECTIVE HISTORY OF PRESENT ILLNESS Patient returns after her a polysomnogram. We did a in-lab polysomnogram to evaluate whether there was any problem with her CPAP therapy. That study which commenced with her CPAP set at the habitual 5-17 cm water pressure revealed that she still had a residual AHI of 25.9 on that setting. When the special procedures technologist increase the pressure to six to 17 her AHI dropped to nine in her a arousal index also dropped substantially. We did not do the MSLT because of the amount of sleep apnea still present. Today's visit I reviewed that with her and explained why we did not do the MSLT. Today's visit I suggested that we increase her lower limit pressure by 1 cm and then perhaps another one if necessary but I do not want to increase should more than a half to S it is more likely the result in aerophagia in leak. Patient is in agreement with this plan. OBJECTIVE PHYSICAL EXAMINATION BP 109/72 (BP Location: Left arm, Patient Position: Sitting, Cuff Size: Large) Pulse 80 Temp 36.4 ??C Wt 84 kg BMI 34.52 kg/m?? HEENT Mallampati score: 2 Macroglossia: + Lungs: Clear Neurological Exam Cognition: Alert and oriented x 4. Cranial Nerves: II-XII intact and symmetric. Motor: Full strength throughout the upper and lower extremities bilaterally both proximally and distally. Normal tone. No pronator drift. No tremor. Reflexes: Normal and symmetric at the biceps, triceps, brachioradialis, knees, and ankles. Sensory: Normal sensation to touch. Cerebellar: ARMs normal. Gait: Normal. ASSESSMENT / PLAN #1 Obstructive Sleep Apnea Adult Today's visit I reviewed her study and I am going to increase her pressure from spanning 5-17 cm water pressure to 6-17 cm water pressure and then see her back in six weeks. She still a quite sleepy because said changes of not been implemented. Answered all of her questions about this and if we resolve her sleep disordered breathing adequately and she still sleepy than we will give consideration again to an MSLT. - DME CPAP; DME Order, ERX DME Other orders - Sleep Medicine office visit (clinic) - Sleep Medicine office visit (clinic); Future; Expected date: 04/27/2022 (Before surgery) I personally spent 30 minutes in care of the patient today. Time includes both non face to face and face to face patient care. Patient was counseled regarding weight as a risk factor for sleep disordered breathing. The patient was counseled on driving while drowsy. Chrissie Paredes M.D., M.P.H. documented in this encounter Plan of Treatment Scheduled Referrals Name Type Priority Associated Diagnoses Order S [facility] Sleep Medicine Outpatient Referral Routine Expect ed: office visit 04/27/2022, (clinic) Expires: 06/16/2023 documented as of this encounter Visit Diagnoses Diagnosis Obstructive Sleep Apnea Adult - Primary documented in this encounter
--- OUTSIDE RECORDS SUMMARY | 2022-05-09 13:20 | XMS_ITS | Encounter Summary ---
:1965 Author Organization [facility] Address [address] [place] [address] Care Team Providers Name Role Phone Unavailable Primary Care Provider Unavailable Reason for Visit Reason Comments Triage Encounter Details Date Type Department Care Team Description 02/01/2021 Clinical Communication Division of Rheumatology Zachary Parks Triage in [facility] gem WANG M.D. [address] [place] [address] [place], [place] [phone] Social History Tobacco Use Types Packs/Day Years [...] In chart Scheduling Priority: Send Response to: [facility] SCHEDULING Name: Megan Choi [facility] Number: [id number] Birthdate: 1965 Email: [email or web address] [email or web address] Model of Care I have read [...] are your goals for your visit to [facility]: To find out why I'm in so much pain all the time especially in my joints and why I am always swollen every morning when I wake up and continue to be much more so by the time I go to bed at night. Who is referring you to [facility] (provide name and address): Dr. Rosangela Cho Is this a Ordnance Technician: No Is this your local provider that you would like us to communicate with: Yes What are your goals for your visit to [facility]: To find out why I'm in so [...] you should see any specialists while at [facility]: Yes Please list any specialists that you or your local provider feel you should see while you are at [facility] and explain: Rheumatoid How would you rate your overall health: [...] best phone number to reach you at: [phone] documented in this encounter Plan of Treatment Not on filedocumented as of this encounter Visit Diagnoses Not on filedocumented in this encounter
--- OUTSIDE RECORDS SUMMARY | 2022-05-09 13:20 | XMS_ITS | Encounter Summary ---
:1965 Author Organization [facility] Address [address] [place] [address] Care Team Providers Name Role Phone Unavailable Primary Care Provider Unavailable Reason for Referral Outpatient (Routine) - Authorized Specialty Diagnoses / Procedures Referred By Contact Refer red To Contact Sleep Medicine Chrissie Paredes M.D., [facility] M[facility]P.[facility] [address] [place] [phone] Referral ID Status Reason Start Date Expiration Date Visits V isits Requested Authorized [id number] Authorized 04/24/2022 04/23/2025 1 1 S SUPERINTENDENT Reason for Visit Reason Comments Cpap Follow-up Outpatient (Routine) - Closed Specialty Diagnoses / Procedures Referred By Contact Refer red To Contact Sleep Medicine Chrissie Paredes M.D., [facility] M[facility] [address] [place] [phone] Referral ID Status Reason Start Date Expiration Date Visits Requ ested Visits Authorized [id number] Closed 03/16/2022 03/15/2025 1 1 Encounter Details Date Type Department Care Team Description 04/24/2022 Office Visit Department of Chrissie Paredes, Obstructiv e Sleep Apnea Adult (Primary Dx); Neurology in John, M.P.H. Delayed Sleep-Wake Phase Disorder [place], [place] [address] [place] [address], [place] [phone] Social History Tobacco Use Types Packs/Day Years Used Date Smoking Tobacco: Never Smokeless Tobacco: Never Tobacco Cessation: Counseling Given: Not Answered Sex Assigned at Date Recorded Female 11/16/2021 10:41 AM CDT documented as of this encounter Last Filed Vital Signs Vital Sign Reading Time Taken Comments Blood Pressure 130/71 04/24/2022 10:52 AM ROADS SUPERINTENDENT Pulse 78 04/24/2022 10:52 AM ROADS SUPERINTENDENT Temperature - - Respiratory Rate - - Oxygen Saturation - - Inhaled Oxygen Concentration - - Weight 83.5 kg (184 lb 1.4 oz) 04/24/2022 10:52 AM ROADS SUPERINTENDENT Height - - Body Mass Index 34.31 11/16/2021 10:41 AM CDT documented in this encounter Progress Notes Chirssie Paredes M.D., M.P.H. - 04/24/2022 11:00 AM CST Sleep Clinic SUBJECTIVE HISTORY OF PRESENT ILLNESS Patient with hypersomnia and poorly treated sleep apnea returns today after we adjusted her auto titrating CPAP therapy by increasing the lower pressure from 5-6 cm. This has resulted in her having a median pressure support of 7.7 with maximum being 9.6 but importantly her AHI is 1.8 and now her [place] Sleepiness Score decreased to four. She feels as though she has more energy and isn't sleepy. She has no complaints. We had considered doing an MSLT if her polysomnogram had shown significant sleep disordered breathing but in fact it did and was improved by just raising her bottom limit up 1 cm of water pressure. She still has delayed sleep phase syndrome and prefers to go to bed quite late but she slowly movingher bedtime up by about 15 minutes per night. [place] Sleepiness Score: 4 OBJECTIVE PHYSICAL EXAMINATION BP 130/71 (BP Location: Right arm, Patient Position: Sitting, Cuff Size: Large) Pulse 78 Wt 83.5kg BMI 34.31 kg/m?? HEENT Mallampati score: 3 Macroglossia: - Over jet: - Retrognathia: - Lungs: Clear Neurological Exam Cognition: Alert and [...] / PLAN #1 Obstructive Sleep Apnea Adult The changes that we have made I have worked well for her she subjectively and objectively improved. #2 Delayed Sleep-Wake Phase Disorder She is trying to advance her bedtime by about 15 minutes every few days. Other orders - Sleep Medicine office visit (clinic) - Sleep Medicine office visit (clinic); Future; Expected date: 04/24/2023 I personally spent 30 minutes in care of the patient today. Time includes both non face to face and face to face patient care. Patient was counseled regarding weight as a risk factor for sleep disordered breathing. The patient was counseled on driving while drowsy. Chrissie Paredes M.D., M.P.H. S SUPERINTENDENT documented in this encounter Plan of Treatment Scheduled Referrals Name Type Priority Associated Diagnoses Order S [facility] Sleep Medicine Outpatient Referral Routine Expect ed: office visit 04/24/2023 (clinic) (Approximate), Expires: 07/25/2023 documented as of this encounter Visit Diagnoses Diagnosis Obstructive Sleep Apnea Adult - Primary Delayed Sleep-Wake Phase Disorder documented in this encounter
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
--- OUTSIDE RECORDS SUMMARY | 2022-05-09 13:21 | XMS_ITS | Encounter Summary ---
:1965 Author Organization [facility] [place] Address [address] [place] [address] Care Team Providers Name Role Phone Noreen Hills APRN, CNP Unavailable [phone] Noreen Hills APRN, CNP Primary Care Provider [phone] Kalyan Galvan Unavailable Unavailable Eduardo Sharma MD Unavailable Marcelo Artis PA-C Unavailable [phone] Reason for Visit Reason Comments Medication Refill Encounter Details Date Type Department Care Team Description 12/20/2020 Refill [facility] Noreen Hills, Medication Refill Pino ESTRADA MANAGER FINANCIAL PLANNING [address] [place] [address] [place] [address] [phone] Social History Tobacco Use Types Packs/Day Years [...] more drinks on one Never 08/08/2019 occasion? Social Isolation Answer Date Recorded In a typical week, how many times do you talk on the Three t imes a week 08/08/2019 phone with family, friends, or neighbors? How often do you get together with friends or Patient refuse d 08/08/2019 relatives? How often do you attend anabaptist or sabianist Patient refused 08/08/2019 services? Do [...] 12/22/2020 10:44 AM CDT Prescription approved per [facility] Refill Protocol. Wilda Aponte RN, BSN Message handled by CLINIC NURSE. documented in this encounter Plan of Treatment Not on filedocumented as of this encounter Visit Diagnoses Diagnosis Gastroesophageal reflux disease without esophagitis Esophageal reflux documented in this encounter Additional Health Concerns Assessment Noted Time PHQ-9 Depression Total Score: 7 11/10/2020 1:31 PM CDT documented as of this encounter Care Teams Research Analyst Relationship Specialty Start Date End Date Noreen Hills PCP - General Nurse Practitioner 01/09/19 12/12/21 SEAN Haley MANAGER FINANCIAL PLANNING 3305 [facility] [place] [address] Noreen Hills Assigned PCP 06/16/18 SEAN Haley MANAGER FINANCIAL PLANNING 3305 [facility] [place] [address] Kalyan Galvan Personal Advocate & 08/08/19 Liaison (PAL) Eduardo Sharma MD Assigned Sleep Provider 04/02/20 05/07/21 6[address] [facility] 103 [place] [address] Marcelo Artis Assigned Musculoskeletal 08/25/20 08/20/21 MIKAYLA Nuno Provider [address] [facility] [address] [place] [address] documented as of this encounter
--- OUTSIDE RECORDS SUMMARY | 2022-05-09 13:21 | XMS_ITS | Encounter Summary ---
:1965 Author Organization [facility] Address [address] [place] [address] Care Team Providers Name Role Phone Noreen Hills APRN, CNP Unavailable [phone] Noreen Hills APRN, CNP Primary Care Provider [phone] Kalyan Galvan Unavailable Unavailable Eduardo Sharma MD Unavailable Marcelo Artis PA-C Unavailable [phone] Reason for Visit Reason Onset Date Comments Panel Management 04/04/2021 phys,pap, colon, thomas mo, PHQ9, Diab f/u, Imm Encounter Details Date Type Department Care Team Description [facility] Pino Haley APRN CNP (phys,pap, colon, [address] [facility] mammo , PHQ9, Diab f/u, [facility] DR Imm) [address] [place] [address] [place] [address] [phone] Social History Tobacco Use Types Packs/Day Years [...] How often do you attend cheondoism or quaker Patient refused 08/08/2019 services? Do [...] Influenza and Shingrix Type of outreach: Sent [employer] message. Questions for provider review: None Christi Panda CMA Chart routed to Care Team. documented in this encounter Plan of Treatment Not on filedocumented as of this encounter Visit Diagnoses Not on filedocumented in this encounter Additional Health Concerns Assessment Noted Time PHQ-9 Depression Total Score: 7 11/10/2020 1:31 PM CDT documented as of this encounter Care Teams Anthropological Linguist Relationship Specialty Start Date End Date Noreen Hills PCP - General Nurse Practitioner 01/09/19 12/12/21 SEAN Haley FLATBED COMPANY DRIVER [address] [facility] [place] [address] Noreen Hills Assigned PCP 06/16/18 SEAN Haley FLATBED COMPANY DRIVER [address] [facility] [place] [address] Kalyan Galvan Personal Advocate & 08/08/19 Liaison (PAL) Eduardo Sharma MD Assigned Sleep Provider 04/02/20 05/07/21 6363 [address] [place] [place], [place] [address] aMrcelo Artis Assigned Musculoskeletal 08/25/20 08/20/21 MIKAYLA Nuno Provider [address] [facility] [address] [place], [place] [address] documented as of this encounter
--- OUTSIDE RECORDS SUMMARY | 2022-05-09 13:21 | XMS_ITS | Encounter Summary ---
:1965 Author Organization [place] Address [address] [place] [address] Care Team Providers Name Role Phone Noreen Hills APRN, CNP Unavailable [phone] Noreen Hills APRN, CNP Primary Care Provider [phone] Kalyan Galvan Unavailable Unavailable Eduardo Sharma MD Unavailable Marcelo Artis PA-C Unavailable [phone] Reason for Visit Reason Comments Medication Refill Encounter Details Date Type Department Care Team Description 01/11/2021 Refill [facility] Noreen Hills, Medication Refill Pino ESTRADA CHANNEL MACHINE OPERATOR [address] [place] [address] [place] [address] [phone] Social History Tobacco Use Types Packs/Day Years [...] How often do you attend cheondoism or anabaptist Patient refused 08/08/2019 services? Do [...] the [facility] refill protocol Radha Manning RN [facility] -- Triage Nurse documented in this encounter Plan of Treatment Not on filedocumented as of this encounter Visit Diagnoses Diagnosis Chronic seasonal allergic rhinitis documented in this encounter Additional Health Concerns Assessment Noted Time PHQ-9 Depression Total Score: 7 11/10/2020 1:31 PM CDT documented as of this encounter Care Teams Welfare Analyst Relationship Specialty Start Date End Date Noreen Hills PCP - General Nurse Practitioner 01/09/19 12/12/21 SEAN Haley CHANNEL MACHINE OPERATOR 3305 [facility] [place] [address] Noreen Hills Assigned PCP 06/16/18 SEAN Haley CHANNEL MACHINE OPERATOR 3305 [facility] [place] [address] Kalyan Galvan Personal Advocate & 08/08/19 Liaison (PAL) Eduardo Sharma MD Assigned Sleep Provider 04/02/20 05/07/21 6363 [place] [address] Marcelo Artis Assigned Musculoskeletal 08/25/20 08/20/21 MIKAYLA Nuno Provider [address] [address] documented as of this encounter
--- OUTSIDE RECORDS SUMMARY | 2022-05-09 13:21 | XMS_ITS | Encounter Summary ---
:1965 Author Organization [facility] Address [address] [place] [address] Care Team Providers Name Role Phone Noreen Hills APRN, CNP Unavailable [phone] Noreen Hills APRN, CNP Primary Care Provider [phone] Kalyan Galvan Unavailable Unavailable Eduardo Sharma MD Unavailable Marcelo Artis PA-C Unavailable [phone] Reason for Visit Reason Comments Medication Refill Encounter Details Date Type Department Care Team Description 01/06/2021 Refill [facility] Noreen Hills, Medication Refill Pino ESTRADA COMPUTATIONAL PHYSICIST [address] [place] [address] [place] [address] [phone] Social History Tobacco Use Types Packs/Day Years [...] documented as of this encounter Care Teams Seamless Tube Drawer Relationship Specialty Start Date End Date Noreen Hills PCP - General Nurse Practitioner 01/09/19 12/12/21 SEAN Haley COMPUTATIONAL PHYSICIST 3305 [facility] [place] [address] Noreen Hills Assigned PCP 06/16/18 SEAN Haley COMPUTATIONAL PHYSICIST 3305 [facility] [place] [address] Kalyan Galvan Personal Advocate & 08/08/19 Liaison (PAL) Eduardo Sharma MD Assigned Sleep Provider 04/02/20 05/07/21 6363 [address] G[address] [facility] 103 [place], [place] [address] Marcelo Artis Assigned Musculoskeletal 08/25/20 08/20/21 MIKAYLA Nuno Provider [address] [facility] [address] [place], [place] [address] documented as of this encounter
--- OUTSIDE RECORDS SUMMARY | 2022-05-09 13:21 | XMS_ITS | Clinical Summary ---
:1965 Author Organization [facility] Address [address] [place] [address] Care Team Providers Name Role Phone Noreen Hills SEAN MOUNTING MACHINE OPERATOR Unavailable [phone] Allergies Active Allergy Reactions Severity Noted Date [...] use of insulin (H) fluticasone (FLONASE) 50 [place] 1-2 sprays into 16 g 11 Active [...] 01/28/2010 of insulin Persistent insomnia 01/12/2010 Overview: [place]ow[employer]. Investigating 07/2019 why she is only allowed [...] use. Address next visit Family history of AK (myocardial infarction) 8 Overview: At early age, father AK at age 40 Resolved Problems Problem Noted [...] rocess. Provider to review Obesity 04/13/2008 08/08/2019 Immunizations Name Administration Dates Next Due COVID-19 Vaccine 12+ (Pfizer) 09/24/2020, 09/03/2020 Influenza (IIV3) PF 03/09/2011, 04/08/2010, 04/13/2008 Influenza Vaccine >6 months 06/12/2017, 03/23/2016, 04/08/20 15, (Alfuria,Fluzone) 05/30/2013 Pneumococcal 23 valent 10/06/2014 TD (ADULT, 7+) 06/16/2005 TDAP Vaccine (Adacel) 03/23/2016 Family History Medical History Relation Comments Lipids Brother 2 Hypertension Brother 3 Diabetes Brother 4 Kidney Disease Brother 5 Cardiovascular Father AK early 40s, subseq uent bipass Diabetes Father Hypertension Father Lipids Father Diabetes Maternal Grandfather Hypertension Maternal Grandfather Lipids Maternal Grandfather Diabetes Maternal Grandmother Hypertension Maternal Grandmother Lipids Maternal Grandmother Arthritis Mother OA Cardiovascular Mother AK age 72 Diabetes Mother Type II Hypertension [...] Smokeless Tobacco: Never Tobacco Cessation: Counseling Given: Yes Alcohol Use [...] 1965 FIT-DNA (Cologuard) 1965 FLEX SIG 1965 HEPATITIS B IMMUNIZATION (1 1963 of 3 - 3-dose series) COLONOSCOPY 1973 ZOSTER IMMUNIZATION (1 of 2013 2) Pneumococcal Vaccine: 10/07/2015 10/06/2014 Pediatrics (0 to 5 Years) and At-Risk Patients (6 to 64 Years) (2 - PCV) A1C 07/15/2020 01/13/2020, 08/08/2019, 01/02/2019, Additional history exists DIABETIC FOOT EXAM 08/08/2020 08/08/2019, 06/25/2018, 12/22/2015, Additional history exists LIPID 08/08/2020 08/08/2019, 04/09/2018, 02/17/2017, Additional history exists MICROALBUMIN 08/08/2020 08/08/2019, 04/09/2018, 09/25/2016, Additional history exists YEARLY PREVENTIVE VISIT 08/08/2020 08/08/2019, 07/25/2018, 05/03/2016, Additional history exists MAMMO SCREENING 09/03/2020 09/03/2018, 09/30/2015, 04/16/2015, Additional history exists COVID-19 Vaccine (3 - 11/19/2020 09/24/2020, 09/03/2020 Booster for Pfizer series) COLORECTAL CANCER SCREENING 01/11/2021 FIT 01/11/2021 01/12/2020, 01/25/2019, 01/07/2016, Additional history exists ANNUAL REVIEW OF HM ORDERS 03/16/2021 03/16/2020 [...] ss Type Group BCBS BCBS OUT OF [id number] 2016-Present [phone] [address] [address] [place] [address] Megan Choi Medication Self 1965 [address] ([place]) [place] [address] Care Teams Sports Team Marketing Intern Relationship Specialty Start Date End Date Noreen Hills APRN MOUNTING MACHINE OPERATOR Assigned PCP 06/16/18 0196 [facility] [place] [address]
--- OUTSIDE RECORDS SUMMARY | 2022-05-09 13:21 | XMS_ITS | Encounter Summary ---
:1965 Author Organization [place] Address [address] [place] [address] Care Team Providers Name Role Phone Noreen Hills APRN, CNP Unavailable [phone] Noreen Hills APRN, CNP Primary Care Provider [phone] Kalyan Galvan Unavailable Unavailable Eduardo Sharma MD Unavailable Marcelo Artis PA-C Unavailable [phone] Encounter Details Date Type Department Care [...] How often do you attend christianity or temple Patient refused 08/08/2019 services? Do [...] as of this encounter Care Teams Windows Architect Relationship Specialty Start Date End Date Noreen Hills PCP - General Nurse Practitioner 01/09/19 12/12/21 SEAN Haley RESIDENTIAL SUBSTANCE ABUSE COUNSELOR [address] [facility] [place] [address] Noreen Hills Assigned PCP 06/16/18 SEAN Haley RESIDENTIAL SUBSTANCE ABUSE COUNSELOR [address] [facility] [place] [id number] Kalyan Galvan Personal Advocate & 08/08/19 Liaison (PAL) Eduardo Sharma MD Assigned Sleep Provider 04/02/20 05/07/21 6[address] [facility] 103 [place] [address] Marcelo Artis Assigned Musculoskeletal 08/25/20 08/20/21 MIKAYLA Nuno Provider [address] [facility] [address] [place] [address] documented as of this encounter
--- OUTSIDE RECORDS SUMMARY | 2022-05-09 13:21 | XMS_ITS | Encounter Summary ---
:1965 Author Organization [place] Address [address] [place] [address] Care Team Providers Name Role Phone Noreen Hills APRN, CNP Unavailable [phone] Noreen Hills APRN, CNP Primary Care Provider [phone] Kalyan Galvan Unavailable Unavailable Eduardo Sharma MD Unavailable Marcelo Artis PA-C Unavailable [phone] Reason for Visit Reason Comments Consult multiple joint pain Consultation (Routine) - Closed Specialty Diagnoses / Procedures Referred By Contact Refer red To Contact Rheumatology Diagnoses Polyarthralgia Kavin Fitzgerald [facility] MIKAYLA Fernandez [facility] and [address] [place] [address] 9 [place] [address] [place] [address] Phone: Fax: Referral ID Status Reason Start Date Expiration Date Visits Requ ested Visits Authorized [id number] Closed 11/12/2020 11/12/2021 1 1 Encounter Details Date Type Department Care Team Description 01/03/2021 Virtual Visit [facility] Kristian Painting M [facility] [address] [place] [address] [address] [place] [address] Social History Tobacco Use Types [...] How often do you attend spiritism or taoism Patient refused 08/08/2019 services? Do [...] documented as of this encounter Care Teams Washcoat Wiper Relationship Specialty Start Date End Date Noreen Hills PCP - General Nurse Practitioner 01/09/19 12/12/21 SEAN Haley REAL ESTATE DIRECTOR 3305 [facility] [place] [address] Noreen Hills Assigned PCP 06/16/18 SEAN Haley REAL ESTATE DIRECTOR 3305 [facility] [place] [address] Kalyan Galvan Personal Advocate & 08/08/19 Liaison (PAL) Eduardo Sharma MD Assigned Sleep Provider 04/02/20 05/07/21 6363 [address]ARC[address] [facility] [address] [place] [address] Marcelo Artis Assigned Musculoskeletal 08/25/20 08/20/21 MIKAYLA Nuno Provider [address] [facility] [address] [place], [place] [address] documented as of this encounter
--- OUTSIDE RECORDS SUMMARY | 2022-05-09 13:21 | XMS_ITS | Encounter Summary ---
:1965 Author Organization [facility] Address [address] [place] [address] Care Team Providers Name Role Phone Noreen Hills APRN, CNP Unavailable [phone] Noreen Hills APRN, CNP Primary Care Provider [phone] Kalyan Galvan Unavailable Unavailable Eduardo Sharma MD Unavailable Marcelo Artis PA-C Unavailable [phone] Encounter Details Date Type Department Care Team Description 02/28/2021 Telephone [facility] Noreen Hills Eagan APRN OBSERVER ELECTRICAL PROSPECTING 330 [facility] 3305 [facility] [address] [place] [address] [place] [address] [phone] Social History Tobacco Use Types Packs/Day Years [...] How often do you attend cheondoism or baptism Patient refused 08/08/2019 services? Do [...] available 3. Did she get a new coal drier operator? Pls let us know who she wants to see and I'll place referral 4. Does she have FIT at home? If not, forklift picker at lab. If so, please send in documented in this encounter Plan of Treatment Not on filedocumented as of this encounter Visit Diagnoses Not on filedocumented in this encounter Additional Health Concerns Assessment Noted Time PHQ-9 Depression Total Score: 7 11/10/2020 1:31 PM CDT documented as of this encounter Care Teams Buggy Ladle Tender Relationship Specialty Start Date End Date Noreen Hills PCP - General Nurse Practitioner 01/09/19 12/12/21 SEAN Haley OBSERVER ELECTRICAL PROSPECTING 3305 [facility] [place] [address] Noreen Hills Assigned PCP 06/16/18 SEAN Haley OBSERVER ELECTRICAL PROSPECTING 3305 [facility] [place] [address] Kalyan Galvan Personal Advocate & 08/08/19 Liaison (PAL) Eduardo Sharma MD Assigned Sleep Provider 04/02/20 05/07/21 [address] [facility] 103 [place] [address] Marcelo Artis Assigned Musculoskeletal 08/25/20 08/20/21 MIKAYLA Nuno Provider [address] [facility] [address] [place], [place] [address] documented as of this encounter
--- OUTSIDE RECORDS SUMMARY | 2022-05-09 13:21 | XMS_ITS | Encounter Summary ---
:1965 Author Organization [facility] Address [address] [place] [address] Care Team Providers Name Role Phone Noreen Hills APRN, CNP Unavailable [phone] Noreen Hills APRN, CNP Primary Care Provider [phone] Marcelo Artis PA-C Unavailable [phone] Reason for Visit Reason Onset Date Comments Panel Management 07/25/2021 phys, pap, mammo, co dk, diab, PHQ9, HELGA, imm Encounter Details Date Type Department Care Team Description 07/25/2021 Telephone [facility] Noreen Hills (phys, Clinic Pino Haley APRN CNP pap, mammo, colon, 3305 [place] 3305 [facility] diab, PHQ9, HELGA, imm) [facility] [address] [place] [address] [place] [address] [phone] Social History Tobacco Use Types Packs/Day Years [...] How often do you attend worship or mormon Patient refused 08/08/2019 services? Do [...] review: None Christi Panda CMA Chart closed. OGIC DEVELOPER Telephone Encounter - Christi Panda MA - 07/28/2021 3:42 PM CST Patient Quality Outreach 2nd Attempt Patient is due for the following: Physical - Due after 08/08/20 And all due below NEXT STEPS: Schedule a yearly physical, mammogram, colonoscopy Type of outreach: Sent letter.+ PHQ9/HELGA Questions for provider review: None Christi Panda MA Chart routed to Care Team. OGIC DEVELOPER Telephone Encounter - Christi Panda MA - [...] physical, mammogram, colonoscopy Type of outreach: Sent [employer] message.+ PHQ9/HELGA Questions for provider review: None Christi Panda MA Chart routed to Care Team. OGIC DEVELOPER documented in this encounter Plan of Treatment Not on filedocumented as of this encounter Visit Diagnoses Not on filedocumented in this encounter Additional Health Concerns Assessment Noted Time PHQ-9 Depression Total Score: 7 11/10/2020 1:31 PM CDT documented as of this encounter Care Teams Cleaner Furniture Relationship Specialty Start Date End Date Noreen Hills PCP - General Nurse Practitioner 01/09/19 12/12/21 SEAN Haley MANAGER HEALTH [address] [facility] [address] [place], [place] [address] Noreen Hills Assigned PCP 06/16/18 SEAN Haley MANAGER HEALTH [address] [facility] [address] [place], [place] [address] Marcelo Artis Assigned Musculoskeletal 08/25/20 08/20/21 MIKAYLA Nuno Provider [address] [address] documented as of this encounter
--- OUTSIDE RECORDS SUMMARY | 2022-05-09 13:21 | XMS_ITS | Encounter Summary ---
:1965 Author Organization [facility] Address [address] [place] [address] Care Team Providers Name Role Phone Noreen Hills APRN COMMERCIAL LOAN PROCESSOR Unavailable [phone] Noreen Hills APRN COMMERCIAL LOAN PROCESSOR Primary Care Provider [phone] Reason for Visit Reason Comments Medication Refill Encounter Details Date Type Department Care Team Description 12/08/2021 Refill [facility] Noreen Hills istine, Medication Refill Pino ESTRADA COMMERCIAL LOAN PROCESSOR 3305 [facility] [address] [place] [address] [address] [place] [address] [place] [address] [phone] Social History Tobacco Use Types Packs/Day Years [...] How often do you attend taoist or temple Patient refused 08/08/2019 services? Do [...] and she goes to the clinic in [place]. Please remove the pended med.Thank you. Lainey [...] as of this encounter Care Teams Infant Caregiver Relationship Specialty Start Date End Date Noreen Hills APRN COMMERCIAL LOAN PROCESSOR PCP - General Nurse Practitioner 01/09/19 12/12/[address] [place] [address] [place] [address] Noreen Hills APRN COMMERCIAL LOAN PROCESSOR Assigned PCP 06/16/[address] [place] [address] [place] [address] documented as of this encounter
--- OUTSIDE RECORDS SUMMARY | 2022-05-09 13:21 | XMS_ITS | Encounter Summary ---
:1965 Author Organization [facility] Address [address] [place] [address] Care Team Providers Name Role Phone Noreen Hills APRN, CNP Unavailable [phone] Noreen Hills APRN, CNP Primary Care Provider [phone] Kalyan Galvan Unavailable Unavailable Edaurdo Sharma MD Unavailable Marcelo Artis PA-C Unavailable [phone] Reason for Visit Reason Comments Medication Refill Encounter Details Date Type Department Care Team Description 01/18/2021 Refill [facility] Noreen Hills, Medication Refill Pino ESTRADA PRINT CUTTER [address] [place] [address] [place] [address] [phone] Social History Tobacco Use Types Packs/Day Years [...] How often do you attend worship or presybeterian Patient refused 08/08/2019 services? Do [...] 01/20/2021 3:04 PM CDT Prescription approved per [facility] Refill Protocol. Randall Butt RN documented in this encounter Plan of Treatment Not on filedocumented as of this encounter Visit Diagnoses Diagnosis Fibromyalgia Mylagia and myositis, unspecified documented in this encounter Additional Health Concerns Assessment Noted Time PHQ-9 Depression Total Score: 7 11/10/2020 1:31 PM CDT documented as of this encounter Care Teams Electrical Wiring Lineman Relationship Specialty Start Date End Date Noreen Hills PCP - General Nurse Practitioner 01/09/19 12/12/21 SEAN Haley PRINT CUTTER 3305 [facility] [place] [address] Noreen Hills Assigned PCP 06/16/18 SEAN Haley PRINT CUTTER 3305 [facility] [place] [address] Kalyan Galvan Personal Advocate & 08/08/19 Liaison (PAL) Eduardo Sharma MD Assigned Sleep Provider 04/02/20 05/07/21 [address] [facility] 103 [place], [place] [address] Marcelo Artis Assigned Musculoskeletal 08/25/20 08/20/21 MIKAYLA Nuno Provider [address] [facility] 300 [place], [place] [address] documented as of this encounter
--- OUTSIDE RECORDS SUMMARY | 2022-05-09 13:21 | XMS_ITS | Encounter Summary ---
:1965 Author Organization [place] Address [address] [place] [address] Care Team Providers Name Role Phone Noreen Hills APRN, CNP Unavailable [phone] Noreen Hills APRN, CNP Primary Care Provider [phone] Marcelo Artis PA-C Unavailable [phone] Reason for Visit Reason Comments Medication Refill Encounter Details Date Type Department Care Team Description 08/06/2021 Refill [facility] Noreen Hills Medication Refill Pino ESTRADA STEAM TUNNEL FEEDER [address] [place] [address] [place] [address] [phone] Social History Tobacco Use Types Packs/Day Years [...] How often do you attend moravian or uatsdin Patient refused 08/08/2019 services? Do [...] 08/08/2021 2:33 PM CST Prescription approved per [facility] Refill Protocol. Marisa Panda RN RUMENTAL MUSICIAN documented in this encounter Plan of Treatment Not on filedocumented as of this encounter Visit Diagnoses Diagnosis Gastroesophageal reflux disease without esophagitis Esophageal reflux documented in this encounter Additional Health Concerns Assessment Noted Time PHQ-9 Depression Total Score: 7 11/10/2020 1:31 PM CDT documented as of this encounter Care Teams Highway Truck Driver Relationship Specialty Start Date End Date Noreen Hills PCP - General Nurse Practitioner 01/09/19 12/12/21 SEAN Haley STEAM TUNNEL FEEDER [address] [facility] [place] [address] Noreen Hills Assigned PCP 06/16/18 SEAN Haley STEAM TUNNEL FEEDER [address] [facility] [place] [address] Marcelo Artis Assigned Musculoskeletal 08/25/20 08/20/21 MIKAYLA Nuno Provider [id number] [address] documented as of this encounter
--- OUTSIDE RECORDS SUMMARY | 2022-05-09 13:22 | XMS_ITS | Encounter Summary ---
:1965 Author Organization [place] Address [address] [place] [address]. [place] [address] Care Team Providers Name Role Phone Noreen Hills APRN CONTROLS PROJECT ENGINEER Unavailable [phone] Noreen Hills APRN CONTROLS PROJECT ENGINEER Primary Care Provider [phone] Kalyan Galvan Unavailable Unavailable Lashae Trevino [facility] Unavailable [phone] Eduardo Sharma MD Unavailable Rios Monteiro MD Unavailable Reason for Visit Reason Comments Other Entered automatically based on patient selection in [place]. Encounter Details Date Type Department Care Team Description 07/16/2020 E-Visit [facility] Tatiana Marshall NP Other (Entered Clinic [address] automatically based on [address] [place] [address] DR tenorio... [facility] [place] [address] [address] [place] [address] [phone] Social History Tobacco Use Types Packs/Day Years [...] How often do you attend adventism or jew Patient refused 08/08/2019 services? Do you belong to any clubs or organizations such as No 08/08/2019 adventism groups, [employer], fraCommonKey or athletic groups, or school groups? How [...] with No / Unsure 07/17/2020 1:32 PM SUMMER COUNSELOR someone who was confirmed or suspected to have Coronavirus / COVID-19? documented as of this encounter Miscellaneous Notes Telephone Encounter - Lainey Wells - 07/16/2020 11:55 AM CST See message to pt. Lainey Wells on 07/16/2020 at 11:55 AM ER COUNSELOR Telephone Encounter - Tatiana Marshall NP - 07/16/2020 11:37 AM CST Provider E-Visit time total (minutes): -0 No reply, pt ended up going to for this problem ER COUNSELOR documented in this encounter Plan of Treatment Not on filedocumented as of this encounter Visit Diagnoses Diagnosis Urinary frequency - Primary documented in this encounter Additional Health Concerns Assessment Noted Time PHQ-9 Depression Total Score: 5 03/16/2020 7:09 AM CDT documented as of this encounter Care Teams Candle Molder Hand Relationship Specialty Start Date End Date Noreen Hills PCP - General Nurse Practitioner 01/09/19 12/12/21 SEAN Haley CONTROLS PROJECT ENGINEER [address] [facility] [place] [id number] Noreen Hills Assigned PCP 06/16/18 SEAN Haley CONTROLS PROJECT ENGINEER [address] [facility] [place] [address] Kalyan Galvan Personal Advocate & 08/08/19 Liaison (PAL) Lashae Trevino Pharmacist Pharmacist 10/14/19 12/01/20 [facility] 1440 [facility] [place] [id number] Eduardo Sharma MD Assigned Sleep Provider 04/02/20 05/07/21 [address] [place] [address] Rios Monteiro MD Assigned Musculoskeletal 04/02/20 08/24/20 [id number] [facility] Provider [facility] [address] [place] [address] documented as of this encounter
--- OUTSIDE RECORDS SUMMARY | 2022-05-09 13:22 | XMS_ITS | Encounter Summary ---
:1965 Author Organization [place] Address [address] [place] [address] Care Team Providers Name Role Phone Noreen Hills APRN FIELD TALENT QUALIFICATION SPECIALIST Unavailable [phone] Noreen Hills APRN FIELD TALENT QUALIFICATION SPECIALIST Primary Care Provider [phone] Kalyan Galvan Unavailable Unavailable Lashae Trevino [facility] Unavailable [phone] Eduardo Sharma MD Unavailable Marcelo Artis PA-C Unavailable [phone] Rodrigo Man PA-C Unavailable [phone] Encounter Details Date Type Department Care Team Description 11/02/2020 Records - [facility] KATHI CONVERSION Provider, Histor ical Social History Tobacco [...] How often do you attend zoroastrian or sabianist Patient refused 08/08/2019 services? Do [...] as of this encounter Care Teams Medical Lab Technologist Relationship Specialty Start Date End Date Noreen Hills PCP - General Nurse Practitioner 01/09/19 12/12/21 SEAN Haley FIELD TALENT QUALIFICATION SPECIALIST [address] [facility] [place] [phone] Noreen Hills Assigned PCP 06/16/18 SEAN Haley FIELD TALENT QUALIFICATION SPECIALIST [address] [facility] [place] [address] Kalyan Galvan Personal Advocate & 08/08/19 Liaison (PAL) Lashae Trevino Pharmacist Pharmacist 10/14/19 12/01/20 [facility] 1440 [facility] [place] [id number] Eduardo Sharma MD Assigned Sleep Provider 04/02/20 05/07/[address] [place] [address] Marcelo Artis Assigned Musculoskeletal 08/25/20 08/20/21 MIKAYLA Nuno Provider [address] [facility] [address] [place], [place] [address] Rodrigo Man Assigned Surgical 08/25/2011/27 MIKAYLA Lacy Provider [address] [place] [address] documented as of this encounter
--- OUTSIDE RECORDS SUMMARY | 2022-05-09 13:22 | XMS_ITS | Encounter Summary ---
:1965 Author Organization [place] Address [address] [place] [address] Care Team Providers Name Role Phone Noreen Hills APRN PHARMACY STOCK CLERK Unavailable [phone] Noreen Hills APRN PHARMACY STOCK CLERK Primary Care Provider Kalyan Galvan Unavailable Unavailable Lashae Trevino [facility] Unavailable [phone] Eduardo Sharma MD Unavailable Rios Monteiro MD Unavailable Reason for Visit Reason Comments Medication Refill Encounter Details Date Type Department Care Team Description 07/31/2020 Refill [facility] Noreen Hills, Medication Refill Pino ESTRADA PHARMACY STOCK CLERK [address] [place] [address] [place] [address] [phone] Social History Tobacco Use Types Packs/Day Years [...] organizations such as No 08/08/2019 hindu groups, [employer], fraAperto Networks or athletic groups, or school groups? [...] with No / Unsure 07/17/2020 1:32 PM MARKETING PROJECT SPECIALIST someone who was confirmed or suspected to have Coronavirus / COVID-19? documented as of this encounter Miscellaneous Notes Telephone Encounter - [place] Lainey - 08/02/2020 12:52 PM CST See message to pt. Lianey [place] on 08/02/2020 at 12:52 PM ETING PROJECT SPECIALIST Telephone Encounter - Wilda Aponte RN - 08/02/2020 12:15 PM CST Prescription approved per [facility] Refill Protocol. Medication is being filled for 1 time refill only due to: Patient needs to be seen because visit dueApril, please assist in scheduling. Routed to Wilda Aponte RN, BSN Message handled by CLINIC NURSE. ETING PROJECT SPECIALIST documented in this encounter Plan of Treatment Not on filedocumented as of this encounter Visit Diagnoses Diagnosis Fibromyalgia Mylagia and myositis, unspecified documented in this encounter Additional Health Concerns Assessment Noted Time PHQ-9 Depression Total Score: 5 03/16/2020 7:09 AM CDT documented as of this encounter Care Teams Ticket Printer And Tagger Relationship Specialty Start Date End Date Noreen Hills PCP - General Nurse Practitioner 01/09/19 12/12/21 SEAN Haley PHARMACY STOCK CLERK [address] [facility] [place] [address] Noreen Hills Assigned PCP 06/16/18 SEAN Haley PHARMACY STOCK CLERK [address] [facility] [place] [address] Kalyan Galvan Personal Advocate & 08/08/19 Liaison (PAL) Lashae Trevino Pharmacist Pharmacist 10/14/19 12/01/20 Kiran [facility] 0640 [facility] [place] [phone] Eduardo Sharma MD Assigned Sleep Provider 04/02/20 05/07/21 [address] [place] [address] [place] [address] Rios Monteiro MD Assigned Musculoskeletal 04/02/20 08/24/20 [address] [facility] Provider [address] [address] documented as of this encounter
--- OUTSIDE RECORDS SUMMARY | 2022-05-09 13:22 | XMS_ITS | Encounter Summary ---
:1965 Author Organization [place] Address [facility] [place] [address] Care Team Providers Name Role Phone Noreen Hills APRN SHELL MACHINE OPERATOR Unavailable [phone] Noreen Hills APRN SHELL MACHINE OPERATOR Primary Care Provider [phone] Kalyan Galvan Unavailable Unavailable Lashae Trevino [facility] Unavailable [phone] Eduardo Sharma MD Unavailable Marcelo Artis PA-C Unavailable [phone] Rodrigo Man PA-C Unavailable [phone] Encounter Details Date Type Department Care Team Description 09/03/2020 [facility] [address] [place], [place] [phone] Social History Tobacco Use [...] How often do you attend lutheran or temple Patient refused 08/08/2019 services? Do [...] as of this encounter Care Teams Wood Boat Builder Supervisor Relationship Specialty Start Date End Date Noreen Hills PCP - General Nurse Practitioner 01/09/19 12/12/21 SEAN Haley SHELL MACHINE OPERATOR [address] [facility] [place] [address] Noreen Hills Assigned PCP 06/16/18 SEAN Haley SHELL MACHINE OPERATOR [address] [facility] [place] [address] Kalyan Galvan Personal Advocate & 08/08/19 Liaison (PAL) Lashae Trevino Pharmacist Pharmacist 10/14/19 [facility]01[facility] [address] [facility] [address] [place], [place] [phone] Eduardo Sharma MD Assigned Sleep Provider 04/02/20 05/07/21 [address] [place] [address] Marcelo Artis Assigned Musculoskeletal 08/25/20 08/20/21 MIKAYLA Nuno Provider [address] [facility] [address] [place], [place] [address] Rodrigo Man Assigned Surgical 08/25/2011/27 MIKAYLA Lacy Provider [address] [place] [address] documented as of this encounter
--- OUTSIDE RECORDS SUMMARY | 2022-05-09 13:22 | XMS_ITS | Encounter Summary ---
:1965 Author Organization [place] Address [address] [place] [address] Care Team Providers Name Role Phone Noreen Hills APRN, CNP Unavailable [phone] Noreen Hills APRN, CNP Primary Care Provider [phone] Kalyan Galvan Unavailable Unavailable Eduardo Sharma MD Unavailable Marcelo Artis PA-C Unavailable [phone] Reason for Visit Reason Onset Date Comments Panel Management 12/02/2020 Encounter Details Date Type Department Care Team Description 12/02/2020 Documentation Only [facility] Lashae Trevino Panel Management Clinic P[address] [place] [address] [address] [place] [address] (Work) [phone] Social History Tobacco Use Types Packs/Day Years [...] How often do you attend mormonism or orthodox Patient refused 08/08/2019 services? Do [...] of this encounter Progress Notes Lashae Trevino [facility] - 12/02/2020 3:44 PM CDT Have [...] documented as of this encounter Care Teams Store Clerk Relationship Specialty Start Date End Date Noreen Hills PCP - General Nurse Practitioner 01/09/19 12/12/21 SEAN Haley BUSINESS PROCESS EXPERT 3[address] [facility] [place] [address] Noreen Hills Assigned PCP 06/16/18 SEAN Haley BUSINESS PROCESS EXPERT [address]305 [facility] [place] [address] Kalyan Galvan Personal Advocate & 08/08/19 Liaison (PAL) Eduardo Sharma MD Assigned Sleep Provider 04/02/20 05/07/21 [address] [place], [place] [address] Marcelo Artis Assigned Musculoskeletal 08/25/20 08/20/21 MIKAYLA Nuno Provider [address] [facility] [address] [place] [address] documented as of this encounter
--- OUTSIDE RECORDS SUMMARY | 2022-05-09 13:22 | XMS_ITS | Encounter Summary ---
:1965 Author Organization [place] Address [address] [place] [address] Care Team Providers Name Role Phone Noreen Hills APRN WINE MASTER Unavailable [phone] Noreen Hills APRN WINE MASTER Primary Care Provider [phone] Kalyan Galvan Unavailable Unavailable Lashae Trevino [facility] Unavailable [phone] Eduardo Sharma MD Unavailable Marcelo Artis PA-C Unavailable [phone] Rodrigo Man PA-C Unavailable [phone] Encounter Details Date Type Department Care Team [...] How often do you attend alevism or tenriism Patient refused 08/08/2019 services? Do [...] documented as of this encounter Care Teams Strike Off Machine Operator Relationship Specialty Start Date End Date Noreen Hills PCP - General Nurse Practitioner 01/09/19 12/12/21 SEAN Haley WINE MASTER [address] [facility] [address] [place], [place] [address] Noreen Hills Assigned PCP 06/16/18 SEAN Haley WINE MASTER [address] [facility] [address] [place], [place] [address] Kalyan Galvan Personal Advocate & 08/08/19 Liaison (PAL) Lashae Trevino Pharmacist Pharmacist 10/14/19 12/01/20 [facility] 1440 [facility] [address] Eduardo Sharma MD Assigned Sleep Provider 04/02/20 05/07/21 [address] [place] [id number] Marcelo Artis Assigned Musculoskeletal 08/25/20 08/20/21 MIKAYLA Nuno Provider [address] [facility] [address] [place] [address] Rodrigo Man Assigned Surgical 08/25/2011/27 MIKAYLA Lacy Provider [address] [place] [address] documented as of this encounter
--- OUTSIDE RECORDS SUMMARY | 2022-05-09 13:22 | XMS_ITS | Encounter Summary ---
:1965 Author Organization [place] Address [address] [place] [address] Care Team Providers Name Role Phone Noreen Hills APRN BUILDING SUPPLIES SALESPERSON RETAIL Unavailable [phone] Noreen Hills APRN, CNP Primary Care Provider [phone] Kalyan Galvan Unavailable Unavailable Lashae Trevino [facility] Unavailable [phone] Eduardo Sharma MD Unavailable Marcelo Artis PA-C Unavailable [phone] Rodrigo Man PA-C Unavailable [phone] Encounter Details Date Type Department Care Team Description 11/16/2020 Telephone [facility] Noreen Hills E[place] APRN BUILDING SUPPLIES SALESPERSON RETAIL [address] [place] [address] [place] [address] [phone] Social History Tobacco Use Types Packs/Day Years [...] How often do you attend sabianist or orthodoxy Patient refused 08/08/2019 services? Do you belong to any clubs or organizations such as No 08/08/2019 sabianist groups, [employer], fraYododo or athletic groups, or school groups? How [...] V - 11/16/2020 1:31 PM CDT [facility] [place]. Both locations have availability end of Decemberfor virtual visit (in-person at [place] location). Called and spoke with patient. Informed patient Rx has been sent to her local pharmacy. Discussed appointment scheduling with patient who is willing to do virtual visit. Patient is rescheduled for video visit on 01/03/2021 at 12:30 pm with same provider (Dr. Painting). Patient also added to wait list for sooner appointment. Provider updated. Barbara Mcdonough Assistant Professor Telephone Encounter - Kavin Fitzgerald PA-C - 11/16/2020 1:15 PM CDT I sent her an rx for anti-inflammatory. It takes a few days to take effect. Can we try to get her into Rheum sooner? Her current appointment is Feb. [facility] in [place]? Kavin Fitzgerald PA-C Telephone Encounter - Sheeba Oscar RN - 11/16/2020 12:57 PM CDT Called pt. She says she has taken everything OTC and it does not touch it. She was going to send [employer] message last night but could not find [...] documented as of this encounter Care Teams Operator Supply Relationship Specialty Start Date End Date Noreen Hills PCP - General Nurse Practitioner 01/09/19 12/12/21 SEAN Haley BUILDING SUPPLIES SALESPERSON RETAIL [address] [facility] [place] [address] Noreen Hills Assigned PCP 06/16/18 SEAN Haley BUILDING SUPPLIES SALESPERSON RETAIL 3305 [facility] [place] [address] Kalyan Galvan Personal Advocate & 08/08/19 Liaison (PAL) Lashae Trevino Pharmacist Pharmacist 10/14/19 12/01/20 [facility] 1440 [facility] [place] [phone] Eduardo Sharma MD Assigned Sleep Provider 04/02/20 05/07/21 [address] [place] [address] Marcelo Artis Assigned Musculoskeletal 08/25/20 08/20/21 MIKAYLA Nuno Provider [address] [facility] [address] [place], [place] [address] Rodrigo Man Assigned Surgical 08/25/2011/27 MIKAYLA Lacy Provider [address] [place], [place] [address] documented as of this encounter
--- OUTSIDE RECORDS SUMMARY | 2022-05-09 13:22 | XMS_ITS | Encounter Summary ---
:1965 Author Organization [facility] Address [address] [place] [address] Care Team Providers Name Role Phone Noreen Hills APRN PRECISION FARMING SPECIALIST Unavailable [phone] Noreen Hills APRN PRECISION FARMING SPECIALIST Primary Care Provider [phone] Kalyan Galvan Unavailable Unavailable Lashae Trevino [facility] Unavailable [phone] Eduardo Sharma MD Unavailable Marcelo Artis PA-C Unavailable [phone] Rodrigo Man PA-C Unavailable [phone] Reason for Visit Reason Comments Urgent Care Cough cough/sore throat Encounter Details Date Type Department Care Team Description 08/25/2020 Office Visit [facility] [place] nder investigation for COVID-19 (Primary Dx); Urgent Care [place] PA-C Sore throat; [address] [facility] [address] [place] [address] [place] [address] Social History Tobacco Use [...] How often do you attend sabianist or spiritism Patient refused 08/08/2019 services? Do you belong to any clubs or organizations such as No 08/08/2019 sabianist groups, unions, fraBrass Monkey or athletic groups, or school groups? How [...] a bandana, T-shirt, or other cloth. The [facility] has instructions on how to make a [...] that contain caffeine or alcohol. ?? Taking kovv-hxc-jubfyyq (OTC) medicine to reduce pain and fever. [...] provider with permission from the publisher. ?? [phone] [employer]. [address] [place] [address], [place] [id number]. All rights reserved. This information is not [...] secretions in the nose and lungs. ?? Vtiu-tng-hcjbsus cold medicines will not shorten the length of time you???re sick, but they may be helpful for the following symptoms: cough, sore throat, and nasal and sinus congestion. If you takeprescription medicines, ask your healthcare provider or pharmacist which prrs-rjp-kmzawlo medicines are safe to use. (Note: Don't [...] it goes along with a muffled voice [employer] last reviewed this educational content on 11/09/2017 ?? [phone] [employer]. All rights reserved. This information is not [...] in??1/2 cup of warm water ?? An sfxp-dvn-vteowdj anesthetic gargle Use medicine for more relief Xkxp-uhx-hnqkglg medicine can reduce sore throat symptoms. Ask [...] dizzy or faint ?? Feeling of doom [employer] last reviewed this educational content on 02/09/2019 ?? 5009-8225 [employer]. All rights reserved. This information is not [...] ??? fluticasone (FLONASE) 50 MCG/ACT nasal spray [place] 1-2 sprays into both nostrils daily 16 [...] the Simplexa COVID-19 Direct Assay on the Present Liaison MDX instrument. Additional information about this [...] A PCR Not Detected NDET^Not Detected ASSESSMENT: (Z40.502) Person under investigation for COVID-19 (primary encounter [...] a bandana, T-shirt, or other cloth. The [facility] has instructions on how to make a [...] that contain caffeine or alcohol. ?? Taking xdam-clw-bjslsxj (OTC) medicine to reduce pain and fever. [...] provider with permission from the publisher. ?? 9590-2160 [employer]. [address] [place], [place] [address] [place] [address]. All rights reserved. This information is not [...] secretions in the nose and lungs. ?? Gesj-vhb-nhegdsn cold medicines will not shorten the length of time you???re sick, but they may be helpful for the following symptoms: cough, sore throat, and nasal and sinus congestion. If you takeprescription medicines, ask your healthcare provider or pharmacist which fahl-imb-cwuupof medicines are safe to use. (Note: Don't [...] it goes along with a muffled voice [employer] last reviewed this educational content on 11/09/2017 ?? [phone] [employer]. All rights reserved. This information is not [...] in??1/2 cup of warm water ?? An xefz-xba-wzqcnmn anesthetic gargle Use medicine for more relief Aosn-qxx-zbcocln medicine can reduce sore throat symptoms. Ask [...] dizzy or faint ?? Feeling of doom [employer] last reviewed this educational content on 02/09/2019 ?? [phone] [employer]. All rights reserved. This information is not [...] (Coronavirus) by PCR (08/25/2020 7:31 PM CDT) [facility] Method Time Signature SARS-CoV-2 Nasopharyngeal 08/26/2020 INFECTIOUS Virus 3:23 PM CDT DISEASES Specimen DIAGNOSTIC Source LABORATORY, [facility] SARS-CoV-2 NEGATIVE 08/26/2020 INFECTIOUS PCR Result 3:23 PM CDT DISEASES DIAGNOSTIC LABORATORY, [facility] Comment: SARS-CoV2 (COVID-19) RNA not de tected, presumed negative. SARS-CoV-2 PCR Testing was performed using the Simplexa COVID-19 Direct Assay on the Present Liaison MDX 08/26/2020 3:23 PM INFECTIOUS DISEASES Comment instrument. Additional info rmation about this Emergency Use Authorization (EUA) assay can CDT DIAGNOSTIC be found via the Lab Guide. L ABORATORY, [facility] Comment: This test should be ordered for [...] COVID-19. This test was validated by the [facility] Infectious Diseases Diagnostic Laboratory. This laboratory [...] Phon e Number INFECTIOUS DISEASES DIAGNOSTIC [address] [facility] [address] LABORATORY, [facility] Group A Streptococcus PCR Throat Swab (08/25/2020 7:31 PM CDT) [facility] Method Time Signature Specimen Throat 08/25/2020 [place] Description 7:48 PM CDT [facility] [place] Strep Group A Not Detected NDET^Not 08/26/2020 [place] [facility] PCR Detected 2:08 PM CDT [facility] Comment: Group A Streptococcus DNA is not detecte d. FDA approved assay performed using [employer] GeneXpert real-time PCR. Specimen Anatomical Collection Method Collection Time Receive d Time (Source) Location / / Volume Laterality Specimen from 08/25/2020 7:31 PM 08/26/19 21 7:36 throat CDT PM CDT (specimen) Manuel Archer MD LAB - MICRO GENERAL ORDERABL ES Performing Organization Address City/State/ZIP Code Phon e Number [address] [address] [facility] [place] [address] [place] [address] Symptomatic COVID-19 Virus (Coronavirus) by PCR (08/25/2020 7:31 PM CDT) Component Value Ref Test Analysis Performed At [facility] Range Method Time Signature COVID-19 Nasopharyngeal 08/25/2020 [place] Virus PCR to 7:40 PM CDT [facility] [place] [facility] [place] - Source COVID-19 Test received-See 08/26/2020 INFECTIOUS Virus PCR to reflex to IDDL 1:00 PM CDT DISEASES [facility] [place] - test SARS CoV2 DIAGNOSTIC Result (COVID-19) Virus LABORATORY, RT-PCR [facility] Specimen (Source) Anatomical Collection Method Collection Time Re ceived Time Location / / Volume Laterality Specimen from 08/25/2020 7:31 08/25/2020 nasopharyngeal PM CDT 7:36 PM CDT structure (specimen) Manuel Archer MD LAB - MICRO GENERAL ORDERABL ES Performing Organization Address City/[facility]/ZIP Code Phon e Number INFECTIOUS DISEASES DIAGNOSTIC [address] [place] [address] LABORATORY, [address] [place] [address] [phone] Streptococcus A Rapid Scr w Reflx to PCR (08/25/2020 7:31 PM CDT) [facility] Method Time Signature Strep Specimen Throat 08/25/2020 [place] Description 7:34 PM CDT [facility] Streptococcus Negative NEG^Negat 08/25/2020 [place] Group A Rapid jaki 7:48 PM CDT [facility] Screen Comment: No Group A streptococcal antigen detecte d by immunoassay. Confirmatory testing in progress. Specimen Anatomical Collection Method Collection Time Receive d Time (Source) Location / / Volume Laterality Specimen from 08/25/2020 7:31 PM 08/26/19 21 7:36 throat CDT PM CDT (specimen) Manuel Archer MD LAB - MICRO GENERAL ORDERABL ES Performing Organization Address City/[facility]/ZIP Code Phon e Number [address] [address] [phone] documented in this encounter Visit Diagnoses Diagnosis Person under investigation for COVID-19 - Primary Sore throat Acute pharyngitis Cough documented in this encounter Additional Health Concerns Infection Onset Date Last Indicated Resolved Time Rule Out COVID-19 08/25/2020 08/25/2020 08/26/2020 3:2 3 PM CDT Assessment Noted Time PHQ-9 Depression Total Score: 5 03/16/2020 7:09 AM CDT documented as of this encounter Care Teams Knocker Off Relationship Specialty Start Date End Date Noreen Hills PCP - General Nurse Practitioner 01/09/19 12/12/21 SEAN Haley PRECISION FARMING SPECIALIST [address] [facility] [place] [address] Noreen Hills Assigned PCP 06/16/18 SEAN Haley PRECISION FARMING SPECIALIST [address] [facility] [place] [address] Kalyan Galvan Personal Advocate & 08/08/19 Liaison (PAL) Lashae Trevino Pharmacist Pharmacist 10/14/19 12/01/20 [facility] [address] [facility] [place] [address] Eduardo Sharma MD Assigned Sleep Provider 04/02/20 05/07/21 [address] [place] [id number] Marcelo Artis Assigned Musculoskeletal 08/25/20 08/20/21 MIKAYLA [place] Provider [address] [facility] [address] [place], [place] [address] Rodrigo Man Assigned Surgical 08/25/2011/27 MIKAYLA Lacy Provider [address] [place] [id number] documented as of this encounter
--- OUTSIDE RECORDS SUMMARY | 2022-05-09 13:22 | XMS_ITS | Encounter Summary ---
:1965 Author Organization [facility] Address [address] [place] [address] Care Team Providers Name Role Phone Noreen Hills APRN MENTAL HEALTH PROFESSIONAL Unavailable [phone] Noreen Hills APRN MENTAL HEALTH PROFESSIONAL Primary Care Provider [phone] Kalyan Galvan Unavailable Unavailable Lashae Trevino [facility] Unavailable [phone] Eduardo Sharma MD Unavailable Marcelo Artis PA-C Unavailable [phone] Rodrigo Man PA-C Unavailable [phone] Reason for Referral Consultation (Routine) - Closed Specialty Diagnoses / Procedures Referred By Contact Refer red To Contact Rheumatology Diagnoses Polyarthralgia Kavin Fitzgerald [facility] MIKAYLA [facility] and [address] [place] [address] [place] [id number] [place] [address] Phone: Fax: Referral ID Status Reason Start Date Expiration Date Visits Requ ested Visits Authorized [id number] Closed 11/12/2020 11/12/2021 1 1 Reason for Visit Reason Comments Musculoskeletal Problem bilat legs and hands Encounter Details Date Type Department Care Team Description 11/10/2020 Office Visit [facility] Lizzie Fitzgerald (Primary Clinic [place], Dx) [address] [facility] [address] [facility] [place] [address] [place] [address] [phone] Social History Tobacco Use Types Packs/Day Years [...] - Rheumatology Referral; Future Kavin Fitzgerald PA-C [facility] [place] Guzman is a [...] s/p cervical fusion. Migraines consistent--topamax. 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 FH: mother and daughter [...] Name Type Priority Associated Diagnoses Order S [facility] Rheumatology Referral Referral Routine Polyarthralgia Expe cted: [...] [facility] tive 2:05 PM CDT [facility] Comment: ? Reference range: <1:40 ??NEGATIVE 1:40 - 1:80 ??BORDERLINE POSITIVE >1:80 POSITIVE FALGUNI pattern 1 DENSE FINE SPECKLED 11/11/2020 2:05 PM CDT [facility] FALGUNI titer 1 1:160 11/11/2020 2:05 PM CDT [facility] Specimen Anatomical Collection Method Collection Time Receive d Time (Source) Location / / Volume Laterality Blood 11/10/2020 2:29 PM 1 3:04 CDT PM CDT Kavin Fitzgerald PA-C LAB - BLOOD ORDERABLES Performing Organization Address City/State/ZIP Code Phon e Number [facility] [address] [place], [place] [address] [place] [address] (ABNORMAL) Erythrocyte sedimentation rate auto (11/10/2020 2:29 PM CDT) P athologist Signature Sed Rate 40 (H) 0 - 30 mm/h 11/10/2020 [place] 3:21 PM CDT [facility] [place] Specimen Anatomical Collection Method Collection Time Receive d Time (Source) Location / / Volume Laterality Blood 11/10/2020 2:29 PM 1 3:04 CDT PM CDT Kavin Fitzgerald PA-C LAB - BLOOD ORDERABLES Performing Organization Address City/State/ZIP Code Phon e Number [address] [address] [phone] Rheumatoid factor (11/10/2020 2:29 PM CDT) P athologist Signature Rheumatoid <7 <12 IU/mL 11/11/2020 [facility] Factor 11:52 AM CDT [facility] Specimen Anatomical Collection Method Collection Time Receive d Time (Source) Location / / Volume Laterality Blood 11/10/2020 2:29 PM 1 3:04 CDT PM CDT Kavin Fitzgerald PA-C LAB - BLOOD ORDERABLES Performing Organization Address City/[facility]/ZIP Code Phon e Number [facility] [address] [place] [address] [facility] Cyclic Citrullinated Peptide Antibody IgG (11/10/2020 2:29 PM CDT) Patholo gist Method Time Signature Cyclic 2 <7 U/mL 11/11/2020 [facility] 2:03 PM CDT [facility] Peptide Antibody, [facility] Comment: Negative Specimen Anatomical Collection Method Collection Time Receive d Time (Source) Location / / Volume Laterality Blood 11/10/2020 2:29 PM 1 3:04 CDT PM CDT Kavin Fitzgerald PA-C LAB - BLOOD ORDERABLES Performing Organization Address City/[facility]/ZIP Code Phon e Number [facility] [address] [place] [phone] [facility] CRP inflammation (11/10/2020 2:29 PM CDT) Analysis Performed At Patho logist Time Signature CRP Inflammation <2.9 0.0 - 8.0 11/10/2020 [facility] F mg/L 8:40 PM CDT [facility] Specimen Anatomical Collection Method Collection Time Receive d Time (Source) Location / / Volume Laterality Blood 11/10/2020 2:29 PM 1 3:04 CDT PM CDT Kavin Fitzgerald PA-C LAB - BLOOD ORDERABLES Performing Organization Address City/State/ZIP Code Phon e Number [facility] [address] [place] [address] [facility] CBC with platelets differential (11/10/2020 2:29 PM CDT) [facility] Method Time Signature WBC 5.5 4.0 - [...] [place] Absolute 0.1 0.0 - 0.2 11/10/2020 [facility] Basophils 10e9/L 3:14 PM CDT [facility] [place] Diff Method Automated 11/10/2020 [place] Method 3:14 PM CDT [facility] [place] Specimen Anatomical Collection Method Collection Time Receive d Time (Source) Location / / Volume Laterality Blood 11/10/2020 2:29 PM 3:04 CDT PM CDT Kavin Fitzgerald PA-C LAB - BLOOD ORDERABLES Performing Organization Address City/State/ZIP Code Phon e Number [facility] [address] [place] [address] [phone] (ABNORMAL) Comprehensive metabolic panel (11/10/2020 2:29 PM CDT) Analysis Performed At Patho logist Time Signature Sodium 142 133 - 144 11/10/2020 [facility] mmol/L 7:51 PM CDT [facility] Potassium 4.0 3.4 - 5.3 11/10/2020 [facility] mmol/L 7:51 PM CDT [facility] Chloride 112 (H) 94 - 109 11/10/2020 [facility] mmol/L 7:51 PM CDT [facility] Carbon Dioxide 27 20 - 32 11/10/2020 [facility] mmol/L 7:58 PM CDT [facility] Anion Gap 4 3 - 14 11/10/2020 [facility] mmol/L 7:58 PM CDT [facility] Glucose 96 70 - 99 11/10/2020 [facility] mg/dL 7:58 PM CDT [facility] Urea Nitrogen 14 7 - 30 11/10/2020 [facility] mg/dL 7:58 PM CDT [facility] Creatinine 0.74 0.52 - 11/10/2020 [facility] 1.04 mg/dL 7:58 PM CDT [facility] GFR Estimate >90 >60 11/10/2020 [facility] mL/min/{1. 7:58 PM [facility] MEDICAL 73_m2} [facility] Comment: Non GFR Calc Starting 05/28/2018, serum creatinine ba sed estimated GFR (eGFR) will be calculated using the Chronic Kidney Dise [facility] Epidemiology Collaboration (CKD-EPI) equation. GFR Estimate If >90 >60 mL/min/{1.73_m2} 11/10/2020 7: 58 PM [facility] Black [facility] Comment: GFR Calc Starting 05/28/2018, serum creatinine ba sed estimated GFR (eGFR) will be calculated using the Chronic Kidney Dise [facility] Epidemiology Collaboration (CKD-EPI) equation. Calcium 9.3 8.5 - 10.1 mg/dL 11/10/2020 7:58 PM [facility] Bilirubin Total 0.6 0.2 - 1.3 mg/dL 11/10/2020 8:01 PM [facility] Albumin 3.6 3.4 - 5.0 g/dL 11/10/2020 8:01 PM [facility] Protein Total 7.2 6.8 - 8.8 g/dL 11/10/2020 8:01 PM [facility] Alkaline Phosphatase 143 40 - 150 U/L 11/10/2020 8:01 PM [facility] ALT 23 0 - 50 U/L 11/10/2020 8:01 PM [facility] AST 16 0 - 45 U/L 11/10/2020 8:01 PM [facility] Specimen Anatomical Collection Method Collection Time Receive d Time (Source) Location / / Volume Laterality Blood 11/10/2020 2:29 PM 3:04 CDT PM CDT Kavin Fitzgerald PA-C LAB - BLOOD ORDERABLES Performing Organization Address City/State/ZIP Code Phon e Number [facility] [address] [place] [address] [facility] documented in this encounter Visit Diagnoses Diagnosis Polyarthralgia - Primary Pain in joint, multiple sites documented in this encounter Additional Health Concerns Assessment Noted Time PHQ-9 Depression Total Score: 7 11/10/2020 1:31 PM CDT documented as of this encounter Care Teams Fitness Club Manager Relationship Specialty Start Date End Date Noreen Hills PCP - General Nurse Practitioner 01/09/19 12/12/21 SEAN Haley MENTAL HEALTH PROFESSIONAL [address] [facility] [place] [address] Noreen Hills Assigned PCP 06/16/18 SEAN Haley MENTAL HEALTH PROFESSIONAL [address] [facility] [place] [address] Kalyan Galvan Personal Advocate & 08/08/19 Liaison (PAL) Lashae Trevino Pharmacist Pharmacist 10/14/19 12/01/20 [facility] [address] [facility] [address] [place], [place] [id number] Eduardo Sharma MD Assigned Sleep Provider 04/02/20 05/07/[address] [place] [address] Marcelo Artis Assigned Musculoskeletal 08/25/20 08/20/21 MIKAYLA Nuno Provider [address] [facility] [address] [place], [place] [address] Rodrigo Man Assigned Surgical 08/25/2011/27 MIKAYLA Lacy Provider [address] [place] [address] documented as of this encounter
--- OUTSIDE RECORDS SUMMARY | 2022-05-09 13:22 | XMS_ITS | Encounter Summary ---
:1965 Author Organization [place] Address [address] [place] [address] Care Team Providers Name Role Phone Noreen Hills APRN J2EE ENGINEER Unavailable [phone] Noreen Hills APRN J2EE ENGINEER Primary Care Provider [phone] Kalyan Galvan Unavailable Unavailable Lashae Trevino [facility] Unavailable [phone] Eduardo Sharma MD Unavailable Rios Monteiro MD Unavailable Marcelo Artis-C Unavailable [phone] Rodrigo ManC Unavailable [phone] Reason for Visit Reason Comments Medication Refill Encounter Details Date Type Department Care Team Description 06/18/2020 Refill [facility] Noreen Hills, Medication Refill [place] J2EE ENGINEER [address] [facility] [address] [place] [address] [address] [place] [address] [place] [address] [phone] Social History Tobacco Use Types Packs/Day Years [...] How often do you attend zoroastrianism or sikhism Patient refused 08/08/2019 services? Do [...] 10:53 AM CST Prescription approved per [facility] Refill Protocol. Desirae Champagne RN on 06/18/2020 at 10:52 AM FLARING MACHINE OPERATOR documented in this encounter Plan [...] documented as of this encounter Care Teams Fatback Trimmer Relationship Specialty Start Date End Date Noreen Hills PCP - General Nurse Practitioner 01/09/19 12/12/21 SEAN Haley J2EE ENGINEER [address] [facility] [place] [address] Noreen Hills Assigned PCP 06/16/18 SEAN Haley J2EE ENGINEER [address] [facility] [place] [address] Kalyan Galvan Personal Advocate & 08/08/19 Liaison (PAL) Lashae Trevino Pharmacist Pharmacist 10/14/19 12/01/20 [facility] [address] [facility] [place] [address] Eduardo Sharma MD Assigned Sleep Provider 04/02/20 05/07/21 [address] [place] [id number] Rios Monteiro MD Assigned Musculoskeletal 04/02/20 08/24/20 [address] [employer] Provider [address] [place] [id number] Marcelo Artis Assigned Musculoskeletal 08/25/20 08/20/21 MIKAYLA Nuno Provider [address] [facility] [address] [place] [address] Rodrigo Man Assigned Surgical 08/25/2011/27 MIKAYLA Lacy Provider 6545 [facility] 450 [place], [place] [address] documented as of this encounter
--- OUTSIDE RECORDS SUMMARY | 2022-05-09 13:22 | XMS_ITS | Encounter Summary ---
:1965 Author Organization [place] Address [address] [place] [address] Care Team Providers Name Role Phone Noreen [place] APRN FUEL PILOT ENGINEER Unavailable [phone] Noreen Hills APRN, CNP Primary Care Provider [phone] Kalyan Galvan Unavailable Unavailable Lashae Trevino [facility] Unavailable [phone] Eduardo Sharma MD Unavailable Marcelo Artis PA-C Unavailable [phone] Rodrigo Man PA-C Unavailable [phone] Encounter Details Date Type Department Care Team Description 11/12/2020 Telephone [facility] Noreen Hills E[place] APRN FUEL PILOT ENGINEER [address] [place] [address] [place] [address] [phone] Social History Tobacco Use Types Packs/Day Years [...] How often do you attend amish or pentecostal Patient refused 08/08/2019 services? Do you belong to any clubs or organizations such as No 08/08/2019 amish groups, [employer], fraKueski or athletic groups, or school groups? How [...] Faria, RN - Patient Advocate Liason (PAL) [facility] Telephone Encounter - Angel Faria [...] as of this encounter Care Teams Interlocking Pavement Installer Relationship Specialty Start Date End Date Noreen Hills PCP - General Nurse Practitioner 01/09/19 12/12/21 SEAN Haley FUEL PILOT ENGINEER [address] [facility] [place] [address] Noreen Hills Assigned PCP 06/16/18 SEAN Haley FUEL PILOT ENGINEER [address] [facility] [place] [address] Kalyan Galvan Personal Advocate & 08/08/19 Liaison (PAL) Lashae Trevino Pharmacist Pharmacist 10/14/19 12/01/20 [facility] [place] [id number] Eduardo Sharma MD Assigned Sleep Provider 04/02/20 05/07/21 [address] [place] [address] Marcelo Artis Assigned Musculoskeletal 08/25/20 08/20/21 MIKAYLA Nuno Provider [address] [facility] [address] [place] [address] Rodrigo Man Assigned Surgical 08/25/2011/27 MIKAYLA Lacy Provider [address] [place] [address] documented as of this encounter
--- OUTSIDE RECORDS SUMMARY | 2022-05-09 13:22 | XMS_ITS | Encounter Summary ---
:1965 Author Organization [facility] Address [address] [place] [address] Care Team Providers Name Role Phone Noreen Hills APRN, CNP Unavailable [phone] Noreen Hills APRN MINE INSPECTOR FEDERAL Primary Care Provider [phone] Kalyan Galvan Unavailable Unavailable Lashae Trevino [facility] Unavailable [phone] Eduardo Sharma MD Unavailable Marcelo Artis PA-C Unavailable [phone] Rodrigo Mna PA-C Unavailable [phone] Reason for Visit Reason Onset Date Comments Medication Request 10/20/2020 Encounter Details Date Type Department Care Team Description 10/20/2020 Telephone [facility] Noreen Hills ication Request Pino Haley APRN MINE INSPECTOR FEDERAL [address] [facility] [address] [place] [address] [place] [address] [phone] Social History Tobacco Use Types Packs/Day Years [...] How often do you attend jewish or pentecostalism Patient refused 08/08/2019 services? Do [...] her pharmacy about this. Tatiana Marshall APRN, MINE INSPECTOR FEDERAL Telephone Encounter - Lainey Wells - 10/20/2020 9:58 AM CDT The pt was calling and she was given some samples of OneTouch Verio Test Strips and Lancets and she would like an rx sent to the [facility] in [place]. Thank you. Lainey Russell on 10/20/2020 at 10:07 AM documented in this encounter Plan of Treatment Not on filedocumented as of this encounter Visit Diagnoses Not on filedocumented in this encounter Additional Health Concerns Assessment Noted Time PHQ-9 Depression Total Score: 5 03/16/2020 7:09 AM CDT documented as of this encounter Care Teams Supply Manager Relationship Specialty Start Date End Date Noreen Hills PCP - General Nurse Practitioner 01/09/19 12/12/21 SEAN Haley MINE INSPECTOR FEDERAL [address] [facility] [place] [address] Noreen Hills Assigned PCP 06/16/18 SEAN Haley MINE INSPECTOR FEDERAL [address] [facility] [place] [address] Kalyan Galvan Personal Advocate & 08/08/19 Liaison (PAL) Lashae Trevino Pharmacist Pharmacist 10/14/19 12/01/20 [facility] [address]40 [facility] [place] [address] Eduardo Sharma MD Assigned Sleep Provider 04/02/20 05/07/21 [address] [place] [address] Marcelo Artis Assigned Musculoskeletal 08/25/20 08/20/21 MIKAYLA Nuno Provider [address] [facility] [address] [place] [address] Rodrigo Man Assigned Surgical 08/25/2011/27 MIKAYLA Lacy Provider [address] [place] [id number] documented as of this encounter
--- OUTSIDE RECORDS SUMMARY | 2022-05-09 13:22 | XMS_ITS | Encounter Summary ---
:1965 Author Organization [facility] Address [address] [place] [address] Care Team Providers Name Role Phone Noreen Hills APRN PROJECTOR BOOTH OPERATOR Unavailable [phone] Noreen Hills APRN PROJECTOR BOOTH OPERATOR Primary Care Provider [phone] Kalyan Galvan Unavailable Unavailable Lashae Trevino [facility] Unavailable [phone] Eduardo Sharma MD Unavailable Rios Monteiro [...] How often do you attend judaism or sikh Patient refused 08/08/2019 services? Do [...] with No / Unsure 07/17/2020 1:32 PM DRY HOUSE OPERATOR someone who was confirmed or suspected to have Coronavirus / COVID-19? documented as of this encounter Plan of Treatment Not on filedocumented as of this encounter Visit Diagnoses Not on filedocumented in this encounter Additional Health Concerns Assessment Noted Time PHQ-9 Depression Total Score: 5 03/16/2020 7:09 AM CDT documented as of this encounter Care Teams Applications Intern Relationship Specialty Start Date End Date Noreen Hills PCP - General Nurse Practitioner 01/09/19 12/12/21 SEAN Haley PROJECTOR BOOTH OPERATOR [address] [facility] [place] [address] Noreen Hills Assigned PCP 06/16/18 SEAN Haley PROJECTOR BOOTH OPERATOR [address] [facility] [place] [address] Kalyan Galvan Personal Advocate & 08/08/19 Liaison (PAL) Lashae Trevino Pharmacist Pharmacist 10/14/19 12/01/20 [facility] [address] [facility] [address] [place], [place] [id number] Eduardo Sharma MD Assigned Sleep Provider 04/02/20 05/07/21 [address] [facility] [address] [place] [address] Rios Monteiro MD Assigned Musculoskeletal 04/02/20 08/24/20 [address] [facility] Provider [address] [place], [place] [address] documented as of this encounter
--- OUTSIDE RECORDS SUMMARY | 2022-05-09 13:22 | XMS_ITS | Encounter Summary ---
:1965 Author Organization [facility] Address [address] [place] [address]. [place] [address] Care Team Providers Name Role Phone Noreen Hills APRN MANAGER UTILIZATION REVIEW Unavailable [phone] Noreen Hills APRN MANAGER UTILIZATION REVIEW Primary Care Provider [phone] Klayan Galvan Unavailable Unavailable Lashae Trevino [facility] Unavailable [phone] Eduardo Sharma MD Unavailable Marcelo Artis PA-C Unavailable [phone] Rodrigo Man PA-C Unavailable [phone] Encounter Details Date Type Department Care Team Description 09/24/2020 Immunization [facility] Ruperto Monk, Vaccination Center - [id number] [place] [phone] Social History Tobacco Use Types Packs/Day Years [...] How often do you attend gnosticism or yazidism Patient refused 08/08/2019 services? Do you belong to any clubs or organizations such as No 08/08/2019 gnosticism groups, [employer], fraPintley or athletic groups, or school groups? How [...] as of this encounter Care Teams Can Operator Relationship Specialty Start Date End Date Noreen Hills PCP - General Nurse Practitioner 01/09/19 12/12/21 SEAN Haley MANAGER UTILIZATION REVIEW [address] [facility] [place] [phone] Noreen Hills Assigned PCP 06/16/18 SEAN Haley MANAGER UTILIZATION REVIEW 3305 [facility] [place] [phone] Kalyan Galvan Personal Advocate & 08/08/19 Liaison (PAL) Lashae Trevino Pharmacist Pharmacist 10/14/19 12/01/20 [facility] 1440 [facility] [place] [phone] Eduardo Sharma MD Assigned Sleep Provider 04/02/20 05/07/21 [address] [place] [id number] Marcelo Artis Assigned Musculoskeletal 08/25/20 08/20/21 MIKAYLA Nuno Provider [address] [facility] [address] [place] [address] Rodrigo Man Assigned Surgical 08/25/2011/27 MIKAYLA Lacy Provider [address] [place] [id number] documented as of this encounter
--- OUTSIDE RECORDS SUMMARY | 2022-05-09 13:22 | XMS_ITS | Encounter Summary ---
:1965 Author Organization [facility] Address [address] [place] [address] Care Team Providers Name Role Phone Noreen Hills APRN PROFILE TRIMMER Unavailable [phone] Noreen Hills APRN PROFILE TRIMMER Primary Care Provider [phone] Kalyan Galvan Unavailable Unavailable Lashae Trevino [facility] Unavailable [phone] Eduardo Sharma MD Unavailable Rios Monteiro MD Unavailable Marcelo Artis-C Unavailable [phone] Rodrigo ManC Unavailable Reason for Visit Reason Comments Medication Refill Encounter Details Date Type Department Care Team Description 07/10/2020 Refill [facility] Noreen Hills, Medication Refill Pino ESTRADA PROFILE TRIMMER 330 [facility] [address] [place] [address] [address] [place] [address] [place] [address] [phone] Social History Tobacco Use Types Packs/Day Years [...] How often do you attend cheondoism or buddhist Patient refused 08/08/2019 services? Do [...] Champagne RN on 07/13/2020 at 11:11 AM VISION THERAPIST Telephone Encounter - Lainey Wells - 07/12/2020 2:22 PM CST The pt called back and she says that she takes anywhere from 8-10 a month. Lainey Wells on 07/12/2020 at 2:25 PM VISION THERAPIST Telephone Encounter - Lainey Wells - 07/12/2020 10:59 AM CST 1st attempt l/m. Lainey Wells on 07/12/2020 at 10:59 AM VISION THERAPIST Telephone Encounter - Desirae Champagne RN - 07/12/2020 10:02 AM CST Please call patient and see how many doses of sumatriptan patient has used in the past month. Shouldbe using 8 doses or fewer per month. Desirae Champagne RN on 07/12/2020 at 10:07 AM VISION THERAPIST documented in this encounter Plan of [...] as of this encounter Care Teams Underwriting Manager Relationship Specialty Start Date End Date Noreen Hills PCP - General Nurse Practitioner 01/09/19 12/12/21 SEAN Haley PROFILE TRIMMER [address] [place] [address] Noreen Hills Assigned PCP 06/16/18 SEAN Haley PROFILE TRIMMER [address] [place] [address] Kalyan Galvan Personal Advocate & 08/08/19 Liaison (PAL) Lashae Trevino Pharmacist Pharmacist 10/14/19 12/01/20 [facility] [address] [facility] [address] [place], [place] [phone] Eduardo Sharma MD Assigned Sleep Provider 04/02/20 05/07/21 [address] [place] [address] Rios Monteiro MD Assigned Musculoskeletal 04/02/20 08/24/[address] Provider [address] [place] [address] Marcelo Artis Assigned Musculoskeletal 08/25/20 08/20/21 MIKAYLA Nuno Provider [address] [place] [address] Rodrigo Man Assigned Surgical 08/25/2011/27 MIKAYLA Lacy Provider [address] [place] [address] documented as of this encounter
--- OUTSIDE RECORDS SUMMARY | 2022-05-09 13:22 | XMS_ITS | Encounter Summary ---
:1965 Author Organization [facility] Address [address] [place] [address]. [place] [address] Care Team Providers Name Role Phone Noreen Hills APRN, CNP Unavailable [phone] Noreen Hills APRN POLICY DIRECTOR Primary Care Provider [phone] Kalyan Galvan Unavailable Unavailable Lashae Trevino [facility] Unavailable [phone] Eduardo Sharma MD Unavailable Rios Monteiro MD Unavailable Reason for Visit Reason Comments Urgent Care UTI Pt is c/o that she has been having pain with urination and urinary frequency since Sunday. She noticed some blood on tissue when she wiped after urinating. She has not had a fever. Encounter Details Date Type Department Care Team Description 07/17/2020 Office Visit [facility] Steph Sunny, Acute UTI (Primary Dx); Urgent Care Pino Alejandro PA-C Dysuria; [address] [facility] [address] Nonspecific finding on examination of [place], [place] [address] [address] [place] [address] Social History Tobacco Use [...] often do you attend jehovah's witness or worship Patient refused 08/08/2019 services? Do you belong to any clubs or organizations such as No 08/08/2019 jehovah's witness groups, [employer], fraLogentries or athletic groups, or school groups? How [...] with No / Unsure 07/17/2020 1:32 PM METAL BONDING ASSEMBLER someone who was confirmed or suspected to have Coronavirus / COVID-19? documented as of this encounter Last Filed Vital Signs Vital Sign Reading Time Taken Comments Blood Pressure 132/70 07/17/2020 1:44 PM METAL BONDING ASSEMBLER Pulse 94 07/17/2020 1:44 PM METAL BONDING ASSEMBLER Temperature 36.8 ??C (98.3 ??F) 07/17/2020 1:44 PM METAL BONDING ASSEMBLER Respiratory Rate 12 07/17/2020 1:44 PM METAL BONDING ASSEMBLER Oxygen Saturation 96% 07/17/2020 1:44 PM METAL BONDING ASSEMBLER Inhaled Oxygen Concentration - - Weight 80.3 kg (177 lb) 07/17/2020 1:44 PM METAL BONDING ASSEMBLER Height - - Body Mass Index 32.37 01/12/2020 3:45 PM CDT documented in this encounter Patient Instructions Patient InstructionsStaci Herrera PA-C - 07/17/2020 1:35 PM METAL BONDING ASSEMBLER Images from the original note were not included. (N39.0) Acute UTI (primary encounter diagnosis) Comment: Plan: cefdinir (OMNICEF) 300 MG capsule, fluconazole (DIFLUCAN) 150 MG tablet (R30.0) Dysuria Comment: Plan: *UA reflex to Microscopic and Culture ([facility] (except [place] and [place]), Urine Microscopic Patient Education Understanding Urinary Tract [...] toreach the bladder or kidneys in men. [employer] last reviewed this educational content on 06/11/2019 ?? [phone] The [employer]. [address] [place] [address], [place] [address]. All rights reserved. This information is not intended as a substitute for professional medical care. Always follow your healthcare professional's instructions. L BONDING ASSEMBLER documented in this encounter Progress Notes Staci [...] Plan: *UA reflex to Microscopic and Culture ([facility] (except [place] and [place]), Urine Microscopic See orders in [facility] If not improving or if condition worsens, [...] pain SKIN: no suspicious lesions or rashes L BONDING ASSEMBLER documented in this encounter Nursing Notes Blank [...] completed using cuff size: kait Burgos R.N. L BONDING ASSEMBLER documented in this encounter Plan of Treatment Not on filedocumented as of this encounter Procedures Procedure Name Priority Date/Time Associated Diagnosis Comme nts URINE CULTURE Routine 07/17/2020 2:16 PM Nonspecific finding R esults for this METAL BONDING ASSEMBLER on examination of procedure are in urine the results section. URINE MICROSCOPIC Routine 07/17/2020 2:03 PM Dysuria Resu lts for this METAL BONDING ASSEMBLER procedure are i n the results section. UA MACROSCOPIC WITH Routine 07/17/2020 2:03 PM Dysuria Re sults for this REFLEX TO METAL BONDING ASSEMBLER procedure are i n MICROSCOPIC AND the results CULTURE section. documented in this encounter Results (ABNORMAL) Urine Culture Aerobic Bacterial (07/17/2020 2:16 PM METAL BONDING ASSEMBLER) Component Value Ref Test Analysis Performed At Patholo gist [facility] Method Time Signature Specimen Midstream Urine INFECTIOUS Description DISEASES [facility] Special Specimen 07/18/2020 INFECTIOUS Requests received in 6:51 PM METAL BONDING ASSEMBLER DISEASES preservative DIAGNOST[facility], [facility] Culture Micro 10,000 to 50,000 colonies/mL 021 INFECTIOUS Escherichia coli 10:02 PM DISEASES (A) METAL BONDING ASSEMBLER [facility]NOST[facility], [facility] Specimen (Source) Anatomical Collection Method Collection Time Re ceived Time Location / / Volume Laterality Examination of 07/17/2020 2:16 07/17/2020 2:17 midstream urine PM METAL BONDING ASSEMBLER PM METAL BONDING ASSEMBLER specimen (procedure) Organism Antibiotic Method Susceptibility Escherichia [...] MICRO GENERAL ORDE RABASAF Performing Organization Address City/[facility]/ZIP Code Phon e Number INFECTIOUS DISEASES DIAGNOSTIC [address] [facility] N [address] LABORATORY, [facility] (ABNORMAL) Urine Microscopic (07/17/2020 2:03 PM METAL BONDING ASSEMBLER) [facility] gist Method Time Signature WBC Urine 50-100 (A) OTO5^0 - 5 07/17/2020 [facility] /HPF 2:15 PM METAL BONDING ASSEMBLER [facility] [place] RBC Urine 25-50 (A) OTO2^O - 2 07/17/2020 [facility] /HPF 2:15 PM METAL BONDING AS[facility] Squamous Few FEW^Few 07/17/2020 [facility] Epithelial /LPF /LPF 2:15 PM METAL BONDING ASSEMBLER [facility] [place] N Urine Renal Tub Epi Few (A) NEG^Negati 07/17/2020 [facility] ve /HPF 2:15 PM METAL BONDING AS[facility] [place] Bacteria Urine Many (A) NEG^Negati 07/17/2020 [facility] ve /HPF 2:15 PM METAL BONDING AS[facility] [place] Specimen Anatomical Collection Method Collection Time Receive d Time (Source) Location / / Volume Laterality 07/17/2020 2:03 PM 2:04 METAL BONDING ASSEMBLER PM METAL BONDING ASSEMBLER Staci Correa PA-C LAB - URINE ORDERABLES Performing Organization Address City/[facility] Phon e Number [facility] [place] [address] [place] [address] [phone] (ABNORMAL) *UA reflex to Microscopic and Culture ([facility] ([facility] [place] [facility]) (07/17/2020 2:03 PM METAL BONDING ASSEMBLER) [facility] Method Time Signature Color Urine Brown 07/17/2020 [facility] 2:15 PM METAL BONDING AS[facility] Appearance Urine Slightly 07/17/2020 [facility] Cloudy 2:15 PM METAL BONDING [facility] Glucose Urine Negative NEG^Negat 07/17/2020 [facility] jaki mg/dL 2:15 PM METAL BONDING [facility] Bilirubin Urine Negative NEG^Negat 07/17/2020 [facility] jaki 2:15 PM [facility]ONDING [facility] Ketones Urine Negative NEG^Negat 07/17/2020 [facility] jaki mg/dL 2:15 PM METAL BONDING ASSEMBLER [facility] Specific [place] >1.030 1.003 - 07/17/2020 [facility] Urine 1.035 2:15 PM METAL BONDING ASSEM[facility] Blood Urine Large (A) NEG^Negat 07/17/2020 [facility] jaki 2:15 PM METAL BONDING [facility] pH Urine 5.5 5.0 - 7.0 07/17/2020 [facility] pH 2:15 PM [facility]AL [facility]ONDING [facility] Protein Albumin >=300 (A) NEG^Negat 07/17/2020 [facility] Urine jaki mg/dL 2:15 PM METAL BONDING ASSEM[facility]ER [facility] Urobilinogen 0.2 0.2 - 1.0 07/17/2020 [facility] Urine EU/dL 2:15 PM METAL BONDING AS[facility] Nitrite Urine Negative NEG^Negat 07/17/2020 [facility] jaki 2:15 PM METAL BONDING [facility] Leukocyte Small (A) NEG^Negat 07/17/2020 [facility] Esterase Urine jaki 2:15 PM METAL BONDING AS[facility] Source Midstream 07/17/2020 [facility] Urine 2:04 PM METAL BONDING AS[facility] Specimen (Source) Anatomical Collection Method Collection Time Re ceived Time Location / / Volume Laterality Examination of 07/17/2020 2:03 07/17/2020 2:04 midstream urine PM METAL BONDING ASSEMBLER PM METAL BONDING ASSEMBLER specimen (procedure) Staci Correa PA-C LAB - URINE ORDERABLES Performing Organization Address City/State/ZIP Code Phon e Number [facility] [place] [address] [place] [phone] documented in this encounter Visit Diagnoses Diagnosis Acute UTI - Primary Urinary tract infection, site not specif ied Dysuria Nonspecific finding on examination of ur ine Other nonspecific finding on examination of urine documented in this encounter Additional Health Concerns Assessment Noted Time PHQ-9 Depression Total Score: 5 03/16/2020 7:09 AM CDT documented as of this encounter Care Teams Shipping Point Inspector Relationship Specialty Start Date End Date Noreen Hills PCP - General Nurse Practitioner 01/09/19 12/12/21 SEAN Haley POLICY DIRECTOR [address] [facility] [place] [address] Noreen Hills Assigned PCP 06/16/18 SEAN Haley POLICY DIRECTOR [address] [facility] [place] [address] Kalyan Galvan Personal Advocate & 08/08/19 Liaison (PAL) Lashae Trevino Pharmacist Pharmacist 10/14/19 12/01/20 [facility] 1440 [facility] [place] [address] Eduardo Sharam MD Assigned Sleep Provider 04/02/20 05/07/[address] [facility] [address] [place] [address] Rios Monteiro MD Assigned Musculoskeletal 04/02/20 08/24/20 [address] [facility] Provider ROS[address]AN [address] [place] [address] documented as of this encounter
--- OUTSIDE RECORDS SUMMARY | 2022-05-09 13:22 | XMS_ITS | Encounter Summary ---
:1965 Author Organization [facility] Address [address] [place] [address] Care Team Providers Name Role Phone Noreen Hills APRN, CNP Unavailable [phone] Noreen Hills APRN, CNP Primary Care Provider [phone] Kalyan Galvan Unavailable Unavailable Lashae Trevino [facility] Unavailable [phone] Eduardo Sharma MD Unavailable Marcelo Artis PA-C Unavailable [phone] Rodrigo Man PA-C Unavailable Reason for Visit Reason Onset Date Comments Refill Request 10/05/2020 topiramate (TOPAMAX) 100 MG tablet Encounter Details Date Type Department Care Team Description 10/05/2020 Refill [facility] Noreen Hills Refill [facility] Pino Haley APRN CNP (topiramate (TOPAMAX) [address] [place] 3305 [facility] 100 M G tablet) [facility] [address] [place] [address] [place] [address] [phone] Social History Tobacco Use Types Packs/Day Years [...] How often do you attend synagogue or episcopal Patient refused 08/08/2019 services? Do you belong to any clubs or organizations such as No 08/08/2019 synagogue groups, [employer], fraJack Erwin or athletic groups, or school groups? How [...] documented as of this encounter Care Teams New Business Clerk Relationship Specialty Start Date End Date Noreen Hills PCP - General Nurse Practitioner 01/09/19 12/12/21 SEAN Haley CEMENT SIDE LASTER [address] [facility] [place] [phone] Noreen Hills Assigned PCP 06/16/18 SEAN Haley CEMENT SIDE LASTER [address] [facility] [place] [address] Kalyan Galvan Personal Advocate & 08/08/19 Liaison (PAL) Lashae Trevino Pharmacist Pharmacist 10/14/19 12/01/20 Kiran, [facility] 1440 [facility] [place] [phone] Eduardo Sharma MD Assigned Sleep Provider 04/02/20 05/07/21 [address] [place] [address] Marcelo Artis Assigned Musculoskeletal 08/25/20 08/20/21 MIKAYLA Nuno Provider [address] [facility] [address] [place] [address] Rodrigo Man Assigned Surgical 08/25/2011/27 MIKAYLA Lacy Provider 6545 [facility] [address] [place], [place] [phone] documented as of this encounter
--- OUTSIDE RECORDS SUMMARY | 2022-05-09 13:22 | XMS_ITS | Encounter Summary ---
:1965 Author Organization [facility] Address [address] [place] [address] Care Team Providers Name Role Phone Noreen Hills APRN ELECTRO OPTICS ENGINEER Unavailable [phone] Noreen Hills APRN ELECTRO OPTICS ENGINEER Primary Care Provider [phone] Kalyan Galvan Unavailable Unavailable Lashae Trevino [facility] Unavailable [phone] Eduardo Sharma MD Unavailable Marcelo Artis PA-C Unavailable [phone] Rodrigo Man PA-C Unavailable [phone] Encounter Details Date Type Department Care Team [...] How often do you attend orthodox or amish Patient refused 08/08/2019 services? Do [...] documented as of this encounter Care Teams Roller Printer Relationship Specialty Start Date End Date Noreen Hills PCP - General Nurse Practitioner 01/09/19 12/12/21 SEAN Haley ELECTRO OPTICS ENGINEER [address] [facility] [place] [address] Noreen Hills Assigned PCP 06/16/18 SEAN Haley ELECTRO OPTICS ENGINEER 3305 [facility] [place] [address] Kalyan Galvan Personal Advocate & 08/08/19 Liaison (PAL) Lashae Trevino Pharmacist Pharmacist 10/14/19 12/01/20 [facility] [address] [facility] [address] [place], [place] [phone] Eduardo Sharma MD Assigned Sleep Provider 04/02/20 05/07/[address] [place] [phone] Marcelo Artis Assigned Musculoskeletal 08/25/20 08/20/21 MIKAYLA Nuno Provider [address] [facility] 300 [place], [place] [address] Rodrigo Man Assigned Surgical 08/25/2011/27 MIKAYLA Lacy Provider [address] [place] [address] documented as of this encounter
--- OUTSIDE RECORDS SUMMARY | 2022-05-09 13:22 | XMS_ITS | Encounter Summary ---
:1965 Author Organization [place] Address [address] [place] [address] Care Team Providers Name Role Phone Noreen Hills APRN, CNP Unavailable [phone] Noreen Hills APRN, CNP Primary Care Provider [phone] Kalyan Galvan Unavailable Unavailable Lashae Trevino [facility] Unavailable [phone] Eduardo Sharma MD Unavailable Marcelo Artis PA-C Unavailable [phone] Rodrigo Man PA-C Unavailable Reason for Visit Reason Onset Date Comments Refill Request 09/24/2020 zolpidem (AMBIEN) 5 MG tablet Encounter Details Date Type Department Care Team Description 09/24/[address] [facility] Noreen Hills Refill Req uest (zolpidem Clinic [place] Haley APRN CNP (AMBIEN) 5 MG tablet) [address] [facility] [address] [place] [address] [place] [address] [phone] Social History Tobacco Use Types Packs/Day Years [...] such as No 08/08/2019 congregation groups, unions, fraAdstrix or athletic groups, or school groups? How [...] documented as of this encounter Care Teams Railroad Wheels And Axle Inspector Relationship Specialty Start Date End Date Noreen Hills PCP - General Nurse Practitioner 01/09/19 12/12/21 SEAN Haley PATIENT ACCOUNT SPECIALIST [address] [facility] [place] [id number] Noreen Hills Assigned PCP 06/16/18 SEAN Haley PATIENT ACCOUNT SPECIALIST [address] [facility] [place] [id number] Kalyan Galvan Personal Advocate & 08/08/19 Liaison (PAL) Lashae Trevino Pharmacist Pharmacist 10/14/19 12/01/20 [facility] 1440 [facility] [place] [phone] Eduardo Sharma MD Assigned Sleep Provider 04/02/20 05/07/21 [address] [place] [address] [place] [id number] Marcelo Artis Assigned Musculoskeletal 08/25/20 08/20/21 MIKAYLA Nuno Provider [address]859 [facility] [place] [address] [place], [place] 899197 Rodrigo Man Assigned Surgical 08/25/2011/27 MIKAYLA Lacy Provider [address] [place] [address] [place] [id number] documented as of this encounter
--- OUTSIDE RECORDS SUMMARY | 2022-05-09 13:22 | XMS_ITS | Encounter Summary ---
:1965 Author Organization [place] Address [address] [place] [address] Care Team Providers Name Role Phone Noreen Hills APRN REGULATORY AFFAIRS DIRECTOR Unavailable [phone] Noreen Hills APRN REGULATORY AFFAIRS DIRECTOR Primary Care Provider [phone] Kalyan Galvan Unavailable Unavailable Lashae Trevino [facility] Unavailable [phone] Eduardo Sharma MD Unavailable Marcelo Artis PA-C Unavailable [phone] Rodrigo Man PA-C Unavailable [phone] Encounter Details Date Type Department Care Team [...] How often do you attend restorationist or mormonism Patient refused 08/08/2019 services? Do [...] documented as of this encounter Care Teams Personal Security Specialist Relationship Specialty Start Date End Date Noreen Hills PCP - General Nurse Practitioner 01/09/19 12/12/21 SEAN Haley REGULATORY AFFAIRS DIRECTOR [address] [facility] [place] [address] Noreen Hills Assigned PCP 06/16/18 SEAN Haley REGULATORY AFFAIRS DIRECTOR [address] [facility] [place] [address] Kalyan Galvan Personal Advocate & 08/08/19 Liaison (PAL) Lashae Trevino Pharmacist Pharmacist 10/14/19 12/01/20 [facility] 1440 [facility] [place] [phone] Eduardo Sharma MD Assigned Sleep Provider 04/02/20 05/07/21 [address] [place] [address] [place] [id number] Marcelo Artis Assigned Musculoskeletal 08/25/20 08/20/21 MIKAYLA Nuno Provider 38209 [facility] [place] [address] [place], [place] [address] Rodrigo Man Assigned Surgical 08/25/2011/27 MIKAYLA Lacy Provider [address] [place] [address] [place] [id number] documented as of this encounter
--- OUTSIDE RECORDS SUMMARY | 2022-05-09 13:22 | XMS_ITS | Encounter Summary ---
:1965 Author Organization [place] Address [address] [place] [address] Care Team Providers Name Role Phone Noreen Hills APRN, CNP Unavailable [phone] Noreen Hills APRN, CNP Primary Care Provider [phone] Kalyan Galvan Unavailable Unavailable Lashae Trevino [facility] Unavailable [phone] Eduardo Sharma MD Unavailable Rios Monteiro MD Unavailable Reason for Visit Reason Onset Date Comments Prior Auth - Medication 06/17/2020 Omeprazole Encounter Details Date Type Department Care Team Description 06/17/2020 Telephone [facility] Noreen Hills Prior Auth - Medication Clinic [place] Haley APRN CNP (Omeprazole) [address] [facility] [address] [place] [address] [place] [address] [phone] Social History Tobacco Use Types Packs/Day Years [...] How often do you attend adventism or catholic Patient refused 08/08/2019 services? Do you belong to any clubs or organizations such as No 08/08/2019 adventism groups, PrePlays, fraternal or athletic groups, or school groups? [...] Approved Dose/Quantity: Reference #: Insurance Company: GAYATHRI GALLARDOCasengo - Expected CoPay: CoPay Card Available: Foundation Assistance Needed: Which Pharmacy is filling the prescription (Not needed for infusion/clinic administered): [place] [address] Pharmacy Notified: Yes Patient Notified: Yes Instructed pharmacy to notify patient when script is ready to picker and packer/ship. ONAL SALES COORDINATOR Telephone Encounter - Rj Salinas - 06/17/2020 3:15 PM CST Images from the original note were not included. Central Prior Authorization Team PA Initiation Medication: Omeprazole Insurance Company: GAYATHRI GALLARDOCasengo - Pharmacy Filling the Rx: [place] [address] Filling Pharmacy Filling Pharmacy Fax: Start Date: 06/17/2020 ONAL SALES COORDINATOR Telephone Encounter - Charlotte Mark CMA - 06/17/2020 11:02 AM CST Prior Authorization Retail Medication Request Medication/Dose: Omeprazole DR 20mg capsules ICD code (if different than what is on RX): Previously Tried and Failed: Rationale: Insurance requires a prior authorization for more than 90 capsules in 365 days. Insurance Name: Insurance ID: Pharmacy Information (if different than what is on RX) Name: GAYATHRI ONAL SALES COORDINATOR documented in this encounter Plan of Treatment Not on filedocumented as of this encounter Visit Diagnoses Not on filedocumented in this encounter Additional Health Concerns Assessment Noted Time PHQ-9 Depression Total Score: 5 03/16/2020 7:09 AM CDT documented as of this encounter Care Teams Board Lining Machine Operator Relationship Specialty Start Date End Date Noreen Hills PCP - General Nurse Practitioner 01/09/19 12/12/21 SEAN Haley CERTIFIED OPHTHALMIC SURGICAL ASSISTANT 3305 [facility] [place] [address] Noreen Hills Assigned PCP 06/16/18 SEAN Haley CERTIFIED OPHTHALMIC SURGICAL ASSISTANT 3[address] [facility] [place] [address] Kalyan Galvan Personal Advocate & 08/08/19 Liaison (PAL) Lashae Trevino Pharmacist Pharmacist 10/14/19 12/01/20 [facility] 1440 [facility] [place] [phone] Eduardo Sharma MD Assigned Sleep Provider 04/02/20 05/07/21 [address] [facility] [address] [place] [address] Rios Monteiro MD Assigned Musculoskeletal 04/02/20 08/24/20 [address] [facility] Provider [place] [address] [place] [id number] documented as of this encounter
--- OUTSIDE RECORDS SUMMARY | 2022-05-09 13:22 | XMS_ITS | Encounter Summary ---
:1965 Author Organization [place] Address [address] [place] [address] Care Team Providers Name Role Phone Noreen Hills APRN HEART COORDINATOR Unavailable [phone] Noreen Hills APRN HEART COORDINATOR Primary Care Provider [phone] Kalyan Galvan Unavailable Unavailable Lashae Trevino [facility] Unavailable [phone] Eduardo Sharma MD Unavailable Marcelo Artis PA-C Unavailable [phone] Rodrigo Man PA-C Unavailable [phone] Encounter Details Date Type Department Care Team [...] How often do you attend buddhism or yarsani Patient refused 08/08/2019 services? Do [...] documented as of this encounter Care Teams Mannequin Molder Relationship Specialty Start Date End Date Noreen Hills PCP - General Nurse Practitioner 01/09/19 12/12/21 SEAN Haley HEART COORDINATOR [address] [facility] [place] [address] Noreen Hills Assigned PCP 06/16/18 SEAN Haley HEART COORDINATOR [address] [facility] [place] [address] Kalyan Galvan Personal Advocate & 08/08/19 Liaison (PAL) Lashae Trevino Pharmacist Pharmacist 10/14/19 12/01/20 [facility] [address] [facility] [address] [place], [place] [id number] Eduardo Sharma MD Assigned Sleep Provider 04/02/20 05/07/21 [address] [place] [address] [place] [id number] Marcelo Artis Assigned Musculoskeletal 08/25/20 08/20/21 MIKAYLA Nuno Provider [address] [facility] [place] [address] [place], [place] 08[address] Rodrigo Man Assigned Surgical 08/25/2011/27 MIKAYLA Lacy Provider [address] [place] [address] [place] [address] documented as of this encounter
--- OUTSIDE RECORDS SUMMARY | 2022-05-09 13:23 | XMS_ITS | Encounter Summary ---
:1965 Author Organization [place] Address [address] [place] [address] Care Team Providers Name Role Phone Noreen Hills APRN ACETYLENE CUTTER Unavailable [phone] Noreen Hills APRN ACETYLENE CUTTER Primary Care Provider Kalyan Galvan Unavailable Unavailable Lashae Trevino [facility] Unavailable [phone] Eduardo Sharma MD Unavailable Rios Monteiro MD Unavailable Reason for Visit Reason Comments Medication Refill Encounter Details Date Type Department Care Team Description 03/07/[address] [facility] Noreen Hills, Medication Refill [place] ESTRADA ACETYLENE CUTTER [address] [place] [address] [place] [address] [phone] Social History Tobacco Use Types Packs/Day Years [...] How often do you attend latter-day or baptist Patient refused 08/08/2019 services? Do you belong to any clubs or organizations such as No 08/08/2019 latter-day groups, [employer], fraWhiteout Networks or athletic groups, or school groups? [...] the [facility] refill protocol Radha Manning, RN [facility] -- Triage Nurse documented in this encounter Plan of Treatment Not on filedocumented as of this encounter Visit Diagnoses Diagnosis Persistent insomnia Persistent disorder of initiating or martínez ntaining sleep documented in this encounter Additional Health Concerns Assessment Noted Time PHQ-9 Depression Total Score: 9 08/09/2019 7:03 AM EDGE ROLLER documented as of this encounter Care Teams Custodian Manager Relationship Specialty Start Date End Date Noreen Hills PCP - General Nurse Practitioner 01/09/19 12/12/21 SEAN Haley ACETYLENE CUTTER 3305 [facility] [place] [address] Noreen Hills Assigned PCP 06/16/18 SEAN Haley ACETYLENE CUTTER 3305 [facility] [place] [address] Kalyan Galvan Personal Advocate & 08/08/19 Liaison (PAL) Lashae Trevino Pharmacist Pharmacist 10/14/19 12/01/20 [facility] 1440 [facility] [place] [address] Eduardo Sharma MD Assigned Sleep Provider 04/02/20 05/07/21 [address] [place] [address] [place] [id number] Rios Monteiro MD Assigned Musculoskeletal 04/02/20 08/24/20 [address] [employer] Provider [place] [address] [place] [address] documented as of this encounter
--- OUTSIDE RECORDS SUMMARY | 2022-05-09 13:23 | XMS_ITS | Encounter Summary ---
:1965 Author Organization [place] Address [address] [place] [address]. [place] [address] Care Team Providers Name Role Phone Noreen Hills APRN AUTOMOTIVE BRAKE TECHNICIAN Unavailable [phone] Noreen Hills APRN AUTOMOTIVE BRAKE TECHNICIAN Primary Care Provider [phone] Kalyan Galvan Unavailable Unavailable Lashae Trevino [facility] Unavailable [phone] Encounter Details Date Type Department Care Team Description 01/13/2020 Orders Only [facility] Typ e 2 diabetes mellitus [place] [facility] with complication, without 3305 [facility] ng-term current use of Drive insulin (H) [address] [place] [address] Social History Tobacco Use Types Packs/Day [...] 6.1 (H) 0 - 5.6 % 01/13/2020 [place] 9:[address] [facility] Comment: Normal <5.7% Prediabetes 5.7-6.4% ??Diab etes 6.5% or higher - adopted from ADA consensus guidelines. Specimen Anatomical Collection Method Collection Time Receive d Time (Source) Location / / Volume Laterality Blood specimen 01/13/2020 8:55 AM 020 8:56 (specimen) CDT AM CDT Noreen Hills APRN AUTOMOTIVE BRAKE TECHNICIAN LAB - BLOOD ORDERABLES Performing Organization Address City/State/ZIP Code Phon e Number [facility] 1440 [facility] [place] [address] documented in this encounter Visit Diagnoses Diagnosis Type 2 diabetes mellitus with complicati on, without long-term current use of insulin (H) documented in this encounter Additional Health Concerns Assessment Noted Time PHQ-9 Depression Total Score: 9 08/09/2019 7:03 AM PRODUCTION WELDER documented as of this encounter Care Teams Coder Relationship Specialty Start Date End Date Noreen Hlils PCP - General Nurse Practitioner 01/09/19 12/12/21 SEAN Haley AUTOMOTIVE BRAKE TECHNICIAN 3305 [facility] [place] [address] Noreen Hills Assigned PCP 06/16/18 SEAN Haley AUTOMOTIVE BRAKE TECHNICIAN 3305 [facility] [place] [address] Kalyan Galvan Personal Advocate & 08/08/19 Liaison (PAL) Lashae Trevino Pharmacist Pharmacist 10/14/19 12/01/20 [facility] 1440 [facility] [place] [address] documented as of this encounter
--- OUTSIDE RECORDS SUMMARY | 2022-05-09 13:23 | XMS_ITS | Encounter Summary ---
:1965 Author Organization [place] Address [address] [place] [address] Care Team Providers Name Role Phone Noreen Hills APRN COACH PROFESSIONAL ATHLETES Unavailable [phone] Noreen Hills APRN, CNP Primary Care Provider [phone] Kalyan Galvan Unavailable Unavailable Lashae Trevino [facility] Unavailable [phone] Reason for Visit Reason Comments Medication Refill Encounter Details Date Type Department Care Team Description 02/05/2020 Refill [facility] Noreen Hills, Medication Refill [place] ESTRADA COACH PROFESSIONAL ATHLETES 3303 [facility] [address] [place] [address] [address] [place] [address] [place] [address] [phone] Social History Tobacco Use Types Packs/Day Years [...] How often do you attend orthodoxy or latter-day Patient refused 08/08/2019 services? Do [...] Depression Total Score: 9 08/09/2019 7:03 AM PLAN CONSULTANT documented as of this encounter Care Teams Residential Remodeling Subcontractor Relationship Specialty Start Date End Date Noreen Hills PCP - General Nurse Practitioner 01/09/19 12/12/21 SEAN Haley COACH PROFESSIONAL ATHLETES 3305 [facility] [place] [phone] Noreen Hills Assigned PCP 06/16/18 SEAN Haley COACH PROFESSIONAL ATHLETES 3305 [facility] [place] [address] Kalyan Galvan Personal Advocate & 08/08/19 Liaison (PAL) Lashae Trevino Pharmacist Pharmacist 10/14/19 12/01/[facility] 1440 [facility] [place] [phone] documented as of this encounter
--- OUTSIDE RECORDS SUMMARY | 2022-05-09 13:23 | XMS_ITS | Encounter Summary ---
:1965 Author Organization [place] Address [address] [place] [address] Care Team Providers Name Role Phone Noreen Hills APRN, CNP Unavailable [phone] Noreen Hills APRN, CNP Primary Care Provider [phone] Kalyan Galvan Unavailable Unavailable Lashae Trevino [facility] Unavailable [phone] Reason for Visit Reason Onset Date Comments Forms 01/05/2020 Encounter Details Date Type Department Care Team Description 01/05/2020 Telephone [facility] Noreen Hills, Forms [place] ESTRADA COAL CUTTER 3303 [facility] [address] [place] [address] [address] [place] [address] [place] [address] [phone] Social History Tobacco Use Types Packs/Day Years [...] How often do you attend episcopalian or temple Patient refused 08/08/2019 services? Do [...] later is ready for pick at the commercial front load operator. Pt will fruit picker the letter tomorrow. I told her [...] a ligament. ?? PLAN: follow up with podiatrist orthopedic. I ordered an podiatrist orthopedic referral. Continue wearing the right thumb splint [...] How would you like the form/letter returned: Respiratory Support Technician Patient Notified form requests are processed in 3-5 business days:Yes Okay to leave a detailed message? Yes Home number on file [phone] (home) Please reach out to pt when ready Kiya Gleason on 01/05/2020 at 10:25 AM documented in this encounter Plan of Treatment Not on filedocumented as of this encounter Visit Diagnoses Not on filedocumented in this encounter Additional Health Concerns Assessment Noted Time PHQ-9 Depression Total Score: 9 08/09/2019 7:03 AM AFTERNOON NANNY documented as of this encounter Care Teams Federal Air Marshal Relationship Specialty Start Date End Date Noreen Hills PCP - General Nurse Practitioner 01/09/19 12/12/21 SEAN Haley COAL CUTTER 3[address] [facility] [place] [phone] Noreen Hills Assigned PCP 06/16/18 SEAN Haley COAL CUTTER 3305 [facility] [place] [address] Kalyan Galvan Personal Advocate & 08/08/19 Liaison (PAL) Lashae Trevino Pharmacist Pharmacist 10/14/19 12/01/20 CLAUDIA Beck [address] [place] [address] documented as of this encounter
--- OUTSIDE RECORDS SUMMARY | 2022-05-09 13:23 | XMS_ITS | Encounter Summary ---
:1965 Author Organization [place] Address [address] [place] [address] Care Team Providers Name Role Phone Noreen Hills APRN CLAY STAIN MIXER Unavailable [phone] Noreen Hills APRN CLAY STAIN MIXER Primary Care Provider [phone] Kalyan Galvan Unavailable Unavailable Lashae Trevino [facility] Unavailable [phone] Encounter Details Date Type Department Care Team Description 01/13/2020 Telephone [facility] Noreen Hills Eagan APRN CLAY STAIN MIXER 3305 [facility] 3305 [facility] [address] [place] [address] [place] [address] [phone] Social History Tobacco Use Types Packs/Day Years [...] How often do you attend bahai or episcopalian Patient refused 08/08/2019 services? Do [...] AM CDT Let pt know she can crab picker anytime. Edel Mosqueda MA Telephone Encounter - Noreen Hills APRN CNP - 01/13/2020 9:56 AM CDT Please call pt to schedule lab visit to crab picker FIT documented in this encounter Plan of Treatment Not on filedocumented as of this encounter Visit Diagnoses Diagnosis Special screening for malignant neoplasm s, colon - Primary documented in this encounter Additional Health Concerns Assessment Noted Time PHQ-9 Depression Total Score: 9 08/09/2019 7:03 AM COMMUNICATIONS COORDINATOR documented as of this encounter Care Teams Shoe Repairman Relationship Specialty Start Date End Date Noreen Hills PCP - General Nurse Practitioner 01/09/19 12/12/21 SEAN Haley CNP [address] [facility] [place] [address] Noreen Hills Assigned PCP 06/16/18 SEAN Haley CNP [address]305 [facility] [place] [address] Kalyan Galvan Personal Advocate & 08/08/19 Liaison (PAL) Lashae Trevino Pharmacist Pharmacist 10/14/19 12/01/[address] [facility] [address] [place] [address] [place] [address] documented as of this encounter
--- OUTSIDE RECORDS SUMMARY | 2022-05-09 13:23 | XMS_ITS | Encounter Summary ---
:1965 Author Organization [place] Address [address] [place] [address] Care Team Providers Name Role Phone Noreen Hills APRN SUPPLY ASSISTANT Unavailable [phone] Noreen Hills APRN SUPPLY ASSISTANT Primary Care Provider [phone] Kalyan Galvan Unavailable Unavailable Lashae Trevino [facility] Unavailable [phone] Encounter Details Date Type Department Care Team Description 01/12/2020 Orders Only [facility] care maintenance [facility] 3305 [facility] [address] [place] [address] Social History Tobacco Use Types Packs/Day [...] How often do you attend scientologist or scientologist Patient refused 08/08/2019 services? Do [...] Time Signature Occult Blood Negative NEG^Negati 01/18/2020 [facility] FIT ve 4:19 PM CDT [facility] Specimen Anatomical Collection Method Collection Time Receive d Time (Source) Location / / Volume Laterality Stool specimen 01/12/2020 8:00 AM 020 1:16 (specimen) CDT PM CDT Noreen Hills APRN SUPPLY ASSISTANT LAB - STOOLS ORDERABLES Performing Organization Address City/State/ZIP Code Phon e Number [facility] [address] [place] [address] [facility] documented in this encounter Visit Diagnoses Diagnosis Health care maintenance Unspecified general medical examination documented in this encounter Additional Health Concerns Assessment Noted Time PHQ-9 Depression Total Score: 9 08/09/2019 7:03 AM RUBBER COVERING MACHINE OPERATOR documented as of this encounter Care Teams Dark Room Attendant Relationship Specialty Start Date End Date Noreen Hills PCP - General Nurse Practitioner 01/09/19 12/12/21 SEAN Haley SUPPLY ASSISTANT 3305 [facility] [place] [address] Noreen Hills Assigned PCP 06/16/18 SEAN Haley SUPPLY ASSISTANT 3305 [facility] [place] [phone] Kalyan Galvan Personal Advocate & 08/08/19 Liaison (PAL) Lashae Trevino Pharmacist Pharmacist 10/14/19 12/01/20 [facility] 1440 [facility] [place] [phone] documented as of this encounter
--- OUTSIDE RECORDS SUMMARY | 2022-05-09 13:23 | XMS_ITS | Encounter Summary ---
:1965 Author Organization [place] Address [address] [place] [address] Care Team Providers Name Role Phone Noreen Hills APRN BUILDING SPECIALIST Unavailable [phone] Noreen Hills APRN, CNP Primary Care Provider [phone] Kalyan Galvan Unavailable Unavailable Lashae Trevino [facility] Unavailable [phone] Reason for Visit Reason Comments Pain Consultation (Routine) - Closed Specialty Diagnoses / Procedures Referred By Contact Refer red To Contact Diagnoses Pain of right thumb Ramin Romero MD 2019 [facility] 06 11 [place], [place] [address]4003 Referral ID Status Reason Start Date Expiration Date Visits Requ ested Visits Authorized [id number] Closed 01/02/2020 01/01/2021 1 1 Encounter Details Date Type Department Care Team Description 01/12/2020 Office Visit [facility] Rios Monteiro Trigg er finger of right thumb (Primary Dx); Orthopedic Clinic Pain of right thumb; [place] [address] CODY Hand arthritis [address] [facility] [address] [place] [address] [phone] (Wo rk) Social History Tobacco Use Types [...] is right hand dominant, and 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 She has been able to modify her [...] Relation Age of Onset ??? Cardiovascular Mother [place] age 72 ??? Diabetes Mother Type II ??? Hypertension Mother ??? Lipids Mother ??? Arthritis Mother OA ??? Kidney Disease Mother 70 ??? Cardiovascular Father [place] early 40s, subsequent bipass ??? Hypertension Father [...] a week Gets together: Patient refused Attends amish service: Patient refused Active member of club or organization: No Attends meetings of clubs or organizations: Patient refused Relationship status: ??? Intimate partner violence Fear of current or ex partner: Not on file Emotionally abused: Not on file Physically abused: Not on file Forced sexual activity: Not on file Other Topics Concern ??? Parent/sibling w/ CABG, [place] or angioplasty before 65F 55M? No Social [...] ??? fluticasone (FLONASE) 50 MCG/ACT nasal spray [place] 1-2 sprays into both nostrils daily 16 [...] Depression Total Score: 9 08/09/2019 7:03 AM TRAFFIC ENGINEER documented as of this encounter Care Teams Community Sports Coordinator Relationship Specialty Start Date End Date Noreen Hills PCP - General Nurse Practitioner 01/09/19 12/12/21 SEAN Haley BUILDING SPECIALIST [address] [facility] [place] [address] Noreen Hills Assigned PCP 06/16/18 SEAN Haley BUILDING SPECIALIST [address] [facility] [place] [address] Kalyan Galvan Personal Advocate & 08/08/19 Liaison (PAL) Lashae Trevino Pharmacist Pharmacist 10/14/19 12/01/20 [facility] [address] [facility] [place] [address] documented as of this encounter
--- OUTSIDE RECORDS SUMMARY | 2022-05-09 13:23 | XMS_ITS | Encounter Summary ---
:1965 Author Organization [place] Address [address] [place] [address] Care Team Providers Name Role Phone Noreen Hills APRN COMMUNICATIONS SENIOR ASSOCIATE Unavailable [phone] Noreen Hills APRN COMMUNICATIONS SENIOR ASSOCIATE Primary Care Provider [phone] Kalyan Galvan Unavailable Unavailable Lashae Trevino [facility] Unavailable [phone] Encounter Details Date Type Department Care [...] How often do you attend cheondoism or mosque Patient refused 08/08/2019 services? Do [...] Depression Total Score: 9 08/09/2019 7:03 AM COMMISSIONING ENGINEER documented as of this encounter Care Teams Public Information Director Relationship Specialty Start Date End Date Noreen Hills PCP - General Nurse Practitioner 01/09/19 12/12/21 SEAN Haley COMMUNICATIONS SENIOR ASSOCIATE [address] [facility] [address] [place], [place] [address] Noreen Hills PCP 06/16/18 SEAN Haley COMMUNICATIONS SENIOR ASSOCIATE [address] [facility] [place] [address] Kalyan Galvan Personal Advocate & 08/08/19 Liaison (PAL) Lashae Trevino Pharmacist Pharmacist 10/14/19 12/01/[address] [facility] [address] [facility] [address] [place], [place] [address] documented as of this encounter
--- OUTSIDE RECORDS SUMMARY | 2022-05-09 13:23 | XMS_ITS | Encounter Summary ---
:1965 Author Organization [place] Address [address] [place] [address] Care Team Providers Name Role Phone Noreen Hills APRN CULINARY INTERN Unavailable [phone] Noreen Hills APRN CULINARY INTERN Primary Care Provider Kalyan Galvan Unavailable Unavailable Lashae Trevino [facility] Unavailable [phone] Eduardo Sharma MD Unavailable Rios Monteiro MD Unavailable Reason for Visit Reason Onset Date Comments Panel Management 04/06/2020 eye exam Encounter Details Date Type Department Care Team Description 04/06/2020 Telephone [facility] JeanaNoreen girard (eye Clinic Pino Haley APRN CULINARY INTERN exam) [address] [place] [address] [place] [address] [phone] Social History Tobacco Use Types Packs/Day Years [...] How often do you attend mormon or hoahaoism Patient refused 08/08/2019 services? Do [...] appt in Jun 2020. Christi Panda CMA EL SERVICE CONSULTANT Telephone Encounter - Christi Panda MA - 04/09/2020 9:09 AM CDT Reminder letter mailed to patient. Christi Panda CMA Telephone Encounter - Christi Panda MA - 04/06/2020 3:33 PM CDT Images from the original note were not included. Patient Quality Outreach Summary: Patient is due/failing the following: Eye Exam and Immunizations Type of outreach: Sent [employer] message. Questions for provider review: None Start [...] Never Smoker Smokeless tobacco: Never Used Christi Padna CMA Chart routed to Care Team. documented in this encounter Plan of Treatment Not on filedocumented as of this encounter Visit Diagnoses Not on filedocumented in this encounter Additional Health Concerns Assessment Noted Time PHQ-9 Depression Total Score: 5 03/16/2020 7:09 AM CDT documented as of this encounter Care Teams Sales Operations Manager Relationship Specialty Start Date End Date Noreen Hills PCP - General Nurse Practitioner 01/09/19 12/12/21 SEAN Haley CULINARY INTERN [address] [facility] [place] [address] Noreen Hills Assigned PCP 06/16/18 SEAN Haley CULINARY INTERN [address] [facility] [place] [address] Kalyan Galvan Personal Advocate & 08/08/19 Liaison (PAL) Lashae Trevino Pharmacist Pharmacist 10/14/19 12/01/20 [facility] [address] [facility] [place] [id number] Eduardo Sharma MD Assigned Sleep Provider 04/02/20 05/07/21 [address] [place] [address] Rios Monteiro MD Assigned Musculoskeletal 04/02/20 08/24/20 [address] [facility] Provider [address] [place], [place] [address] documented as of this encounter
--- OUTSIDE RECORDS SUMMARY | 2022-05-09 13:23 | XMS_ITS | Encounter Summary ---
:1965 Author Organization [place] Address [address] [place] [address] Care Team Providers Name Role Phone Noreen Hills APRN LEAD SUPPLY WORKER Unavailable [phone] Noreen Hills APRN LEAD SUPPLY WORKER Primary Care Provider [phone] Kalyan Galvan Unavailable Unavailable Lashae Trevino [facility] Unavailable [phone] Reason for Visit Reason Onset Date Comments Covid 19 Testing 02/06/2020 Encounter Details Date Type Department Care Team Description 02/06/2020 Orders Only [facility] Marcelo Artis zachary finger of Urgent Care Jolly Nuno PA-C right thumb [address] [id number] [place], [place] [id number] (Wo rk) Social History Tobacco Use Types [...] How often do you attend christianity or faith Patient refused 08/08/2019 services? Do [...] Hospital Method Time Signature COVID-19 Nasopharyngeal 02/06/2020 [facility]IR Virus PCR to 4:35 PM CDT [facility] COVID-19 Not Detected 02/07/2020 [facility] Virus PCR to 2:10 PM CDT [facility] - GENOMICS Result CENTER LABORATORY Comment: Collection [...] N1,N2 gene targets of CoV2 and human GRINDER AND HONER OPERATOR AUTOMATIC as an internal control. A negative result [...] (Centers for Disease Control) Testing performed by [facility], Room 1-210, [address] [place] [address]. T his test was developed and its performance characteristics determined b y the [facility]. It has not been cleared [...] Address City/State/ZIP Code Phon e Number [address] [address] [facility] Room: 1-[address] [address] [facility] documented in this encounter Visit Diagnoses Diagnosis Trigger finger of right thumb documented in this encounter Additional Health Concerns Assessment Noted Time PHQ-9 Depression Total Score: 9 08/09/2019 7:03 AM BATTERY STARTER documented as of this encounter Care Teams Senior Information Security Analyst Relationship Specialty Start Date End Date Noreen Hills PCP - General Nurse Practitioner 01/09/19 12/12/21 SEAN Haley LEAD SUPPLY WORKER [address] [facility] [place] [address] Noreen Hills Assigned PCP 06/16/18 SEAN Haley LEAD SUPPLY WORKER [address] [facility] [place] [address] Kalyan Galvan Personal Advocate & 08/08/19 Liaison (PAL) Lashae Trevino Pharmacist Pharmacist 10/14/19 12/01/20 Kiran, [facility] [address] [place] [address] documented as of this encounter
--- OUTSIDE RECORDS SUMMARY | 2022-05-09 13:23 | XMS_ITS | Encounter Summary ---
:1965 Author Organization [place] Address [address] [place] [address] Care Team Providers Name Role Phone Noreen Hills APRN CLAIMS SPECIALIST Unavailable [phone] Noreen Hills APRN CLAIMS SPECIALIST Primary Care Provider [phone] Kalyan Galvan Unavailable Unavailable Lashae Trevino [facility] Unavailable [phone] Eduardo Sharma MD Unavailable Rios Monteiro MD Unavailable Reason for Visit Reason Onset Date Comments Refill Request 06/17/2020 Encounter Details Date Type Department Care Team Description 06/16/2020 Refill [facility] Noreen Hills, Refill Request Pino ESTRADA CLAIMS SPECIALIST [address] [place] [address] [place] [id number] [phone] Social History Tobacco Use Types Packs/Day Years [...] How often do you attend episcopalian or church Patient refused 08/08/2019 services? Do you belong to any clubs or organizations such as No 08/08/2019 episcopalian groups, [employer], fraternal or athletic groups, or school [...] Keyona Mantilla RN - 06/16/2020 11:13 AM DIGITAL ADVERTISING SPECIALIST Prescription approved per [facility], [facility] or [facility] refill protocol. Keyona Palacios - Registered Nurse [facility] Acute and Diagnostic Services TAL ADVERTISING SPECIALIST Telephone Encounter - Christy Pelayo RN - 06/16/2020 11:05 AM DIGITAL ADVERTISING SPECIALIST Patient needing refill of medication per call. Christy Pelayo RN Flex TAL ADVERTISING SPECIALIST documented in this encounter Plan of Treatment Not on filedocumented as of this encounter Visit Diagnoses Diagnosis Gastroesophageal reflux disease without esophagitis Esophageal reflux documented in this encounter Additional Health Concerns Assessment Noted Time PHQ-9 Depression Total Score: 5 03/16/2020 7:09 AM CDT documented as of this encounter Care Teams Gluing Crew Leader Relationship Specialty Start Date End Date Noreen Hills PCP - General Nurse Practitioner 01/09/19 12/12/21 SEAN Haley CLAIMS SPECIALIST [address] [facility] [place] [address] Noreen Hills Assigned PCP 06/16/18 SEAN Haley CLAIMS SPECIALIST [address] [facility] [place] [address] Kalyan Galvan Personal Advocate & 08/08/19 Liaison (PAL) Lashae Trevino Pharmacist Pharmacist 10/14/19 12/01/[address] [address] [facility] [place] [address] Eduardo Sharma MD Assigned Sleep Provider 04/02/20 05/07/21 [address] [place] [id number] Rios Monteiro MD Assigned Musculoskeletal 04/02/20 08/24/20 [address] [facility] Provider [address] [place] [id number] documented as of this encounter
--- OUTSIDE RECORDS SUMMARY | 2022-05-09 13:23 | XMS_ITS | Encounter Summary ---
:1965 Author Organization [place] Address [address] [place] [address] Care Team Providers Name Role Phone Noreen Hills APRN SOLAR TECHNICIAN Unavailable [phone] Noreen Hills APRN SOLAR TECHNICIAN Primary Care Provider [phone] Kalyan Galvan Unavailable Unavailable Lashae Trevino [facility] Unavailable [phone] Reason for Visit Reason Comments Surgical Followup Right Trigger release, DOS , Dr. Monteiro Encounter Details Date Type Department Care Team Description 02/19/2020 Office Visit [facility] Marcelo Artis opedic aftercare Orthopedic Clinic MIKAYLA Nuno (Primary Dx) [place] [address] [facility] [address] [facility] [address] [place] [address] [place] [address] [phone] Social History Tobacco Use Types Packs/Day Years [...] hours. documented in this encounter Progress Notes Mareclo Artis PA-C - 02/19/2020 10:40 AM CDT [...] in bending with pain at site on foam rubber molder. 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 Marcelo Artis PA-C Dept. Orthopedic Surgery [facility] 02/19/2020 documented in this encounter Plan of Treatment Not on filedocumented as of this encounter Visit Diagnoses Diagnosis Orthopedic aftercare - Primary Unspecified orthopedic aftercare documented in this encounter Additional Health Concerns Assessment Noted Time PHQ-9 Depression Total Score: 9 08/09/2019 7:03 AM RETAIL ASSOCIATE MANAGER BILINGUAL documented as of this encounter Care Teams Solvent Plant Treater Relationship Specialty Start Date End Date Noreen Hills PCP - General Nurse Practitioner 01/09/19 12/12/21 SEAN Haley SOLAR TECHNICIAN [address] [facility] [place] [address] Noreen Hills Assigned PCP 06/16/18 SEAN Haley SOLAR TECHNICIAN [address] [facility] [place] [address] Kalyan Galvan Personal Advocate & 08/08/19 Liaison (PAL) Lashae Trevino Pharmacist Pharmacist 10/14/19 12/01/20 Kiran, [facility] [address] [place] [address] documented as of this encounter
--- OUTSIDE RECORDS SUMMARY | 2022-05-09 13:23 | XMS_ITS | Encounter Summary ---
:1965 Author Organization [place] Address [address] [place] [address] Care Team Providers Name Role Phone Noreen Hills APRN PACKER INSPECTOR Unavailable [phone] Noreen Hills APRN PACKER INSPECTOR Primary Care Provider Kalyan Galvan Unavailable Unavailable Lashae Trevino [facility] Unavailable [phone] Encounter Details Date Type Department Care [...] How often do you attend zoroastrianism or confucianism Patient refused 08/08/2019 services? Do [...] Depression Total Score: 9 08/09/2019 7:03 AM LOW PRESSURE BOILER OPERATOR documented as of this encounter Care Teams Security Intern Relationship Specialty Start Date End Date Noreen Hills PCP - General Nurse Practitioner 01/09/19 12/12/21 SEAN Haley PACKER INSPECTOR [address] [facility] [address] [place], [place] [address] Noreen Hills PCP 06/16/18 SEAN Haley PACKER INSPECTOR [address] [facility] [place] [address] Kalyan Galvan Personal Advocate & 08/08/19 Liaison (PAL) Lashae Trevino Pharmacist Pharmacist 10/14/19 12/01/20 [facility] [address] [facility] [address] [place], [place] [address] documented as of this encounter
--- OUTSIDE RECORDS SUMMARY | 2022-05-09 13:23 | XMS_ITS | Encounter Summary ---
:1965 Author Organization [place] Address [address] [place] [address] Care Team Providers Name Role Phone Noreen Hills APRN BUTTONHOLE MAKER Unavailable [phone] Noreen Hills APRN BUTTONHOLE MAKER Primary Care Provider [phone] Kalyan Galvan Unavailable Unavailable Lashae Trevino [facility] Unavailable [phone] Encounter Details Date Type Department Care [...] How often do you attend hindu or temple Patient refused 08/08/2019 services? Do [...] Depression Total Score: 9 08/09/2019 7:03 AM PLASTER MODEL AND MOLD MAKER documented as of this encounter Care Teams Jet Aircraft Servicer Relationship Specialty Start Date End Date Noreen Hills PCP - General Nurse Practitioner 01/09/19 12/12/21 SEAN Haley BUTTONHOLE MAKER [address] [facility] [address] [place], [place] [address] JeanaNoreen girard PCP 06/16/18 SEAN Haley BUTTONHOLE MAKER [address] [facility] [address] [place], [place] [address] Kalyan Galvan Personal Advocate & 08/08/19 Liaison (PAL) Lashae Trevino Pharmacist Pharmacist 10/14/19 12/01/20 [facility] [address] [facility] [address] [place], [place] [address] documented as of this encounter
--- OUTSIDE RECORDS SUMMARY | 2022-05-09 13:23 | XMS_ITS | Encounter Summary ---
:1965 Author Organization [place] Address [address] [place] [address] Care Team Providers Name Role Phone Noreen Hills APRN HEAD OF SALES PROMOTION Unavailable [phone] Noreen Hills APRN HEAD OF SALES PROMOTION Primary Care Provider [phone] Kalyan Galvan Unavailable Unavailable Lashae Trevino [facility] Unavailable [phone] Reason for Visit Reason Comments Diabetes Encounter Details Date Type Department Care Team Description 03/16/2020 Virtual Visit [facility] Noreen Hills Migraine without status migrainosus, not intractable, unspecified migraine type (Primary Dx); Clinic Pino Haley APRN Snoring; [address] [place] HEAD OF SALES PROMOTION Persistent insomnia; [address] [facility] Chest pain, unspecified type ; [address] Type 2 diabetes mellitus with complicati on, without long-term current use of insulin (H) [place] [address] [place] [address] Social History Tobacco Use [...] How often do you attend spiritism or judaism Patient refused 08/08/2019 services? Do [...] this encounter Progress Notes Noreen Hills, SEAN HEAD OF SALES PROMOTION - 03/16/2020 7:15 AM CDT Megan Choi [...] would you like to be contacted at? [phone] How would you like to obtain your [...] in feet. 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 Has explored sitting down at work but [...] follow-ups on file. Noreen Hills APRN CNP [facility] Phone call duration: 35 minutes documented in [...] as of this encounter Care Teams Machine Coil Assembler Relationship Specialty Start Date End Date Noreen Hills PCP - General Nurse Practitioner 01/09/19 12/12/21 SEAN Haley CNP [address] [facility] [place] [address] Noreen Hills Assigned PCP 06/16/18 SEAN Haley CNP [address] [facility] [place] [address] Kalyan Galvan Personal Advocate & 08/08/19 Liaison (PAL) Lashae Trevino Pharmacist Pharmacist 10/14/19 12/01/20 Kiran, [facility] [address] [place], [place] [id number] documented as of this encounter
--- OUTSIDE RECORDS SUMMARY | 2022-05-09 13:23 | XMS_ITS | Encounter Summary ---
:1965 Author Organization [place] Address [facility] [place] [address] Care Team Providers Name Role Phone Pankaj Woods APRN DEPUTY SHERIFF LIEUTENANT Unavailable [phone] Pankaj Woods APRN, CNP Primary Care Provider [phone] Kalyan Galvan Unavailable Unavailable Lashae Trevino [facility] Unavailable [phone] Encounter Details Date Type Department Care Team Description 03/16/2020 E-Consult [facility] Heart Ian Hamilton Chest pain, unspecified Clinic Moncho Cade MD type (Primary Dx) [address] [place] [address] [place] [id number] Social History Tobacco Use Types Packs/Day [...] documented as of this encounter Care Teams Wafer Polisher Relationship Specialty Start Date End Date Pankaj Woods PCP - General Nurse Practitioner 01/09/19 12/12/21 SEAN Haley CNP [address] [facility] [place] [address] Pankaj Woods Assigned PCP 06/16/18 SEAN Haley CNP [address] [facility] [place] [address] Kalyan Galvan Personal Advocate & 08/08/19 Liaison (PAL) Lashae Trevino Pharmacist Pharmacist 10/14/19 12/01/20 Kiran, [facility] [address] [place] [address] documented as of this encounter
--- OUTSIDE RECORDS SUMMARY | 2022-05-09 13:23 | XMS_ITS | Encounter Summary ---
:1965 Author Organization [place] Address [address] [place] [address] Care Team Providers Name Role Phone Noreen Hills APRN LABORER TURKEY FARM Unavailable [phone] Noreen Hills APRN LABORER TURKEY FARM Primary Care Provider [phone] Kalyan Galvan Unavailable Unavailable Lashae Trevino [facility] Unavailable [phone] Encounter Details Date Type Department Care [...] How often do you attend baptist or congregation Patient refused 08/08/2019 services? Do [...] Depression Total Score: 9 08/09/2019 7:03 AM CHILDREN'S AUTHOR documented as of this encounter Care Teams Ballistics Expert Forensic Relationship Specialty Start Date End Date Noreen Hills PCP - General Nurse Practitioner 01/09/19 12/12/21 SEAN Haley LABORER TURKEY FARM [address] [facility] [address] [place], [place] [address] Noreen Hills PCP 06/16/18 SEAN Haley LABORER TURKEY FARM [address] [facility] [place] [address] Kalyan Galvan Personal Advocate & 08/08/19 Liaison (PAL) Lashae Trevino Pharmacist Pharmacist 10/14/19 12/01/20 [facility] [address] [facility] [address] [place], [place] [address] documented as of this encounter
--- OUTSIDE RECORDS SUMMARY | 2022-05-09 13:23 | XMS_ITS | Encounter Summary ---
:1965 Author Organization [place] Address [address] [place] [address] Care Team Providers Name Role Phone Noreen Hills APRN JAI ALAI PLAYER Unavailable [phone] Noreen Hills APRN JAI ALAI PLAYER Primary Care Provider [phone] Kalyan Galvan Unavailable Unavailable Lashae Trevino [facility] Unavailable [phone] Encounter Details Date Type Department Care [...] How often do you attend yarsani or alevism Patient refused 08/08/2019 services? Do [...] Depression Total Score: 9 08/09/2019 7:03 AM MARBLE MACHINE OPERATOR documented as of this encounter Care Teams Copy Writer Relationship Specialty Start Date End Date Noreen Hills PCP - General Nurse Practitioner 01/09/19 12/12/21 SEAN Haley JAI ALAI PLAYER [address] [place], [place] [address] Noreen Hills PCP 06/16/18 SEAN Haley JAI ALAI PLAYER [address] [place] [address] Kalyan Galvan Personal Advocate & 08/08/19 Liaison (PAL) Lashae Trevino Pharmacist Pharmacist 10/14/19 12/01/20 [facility] [address] [facility] [address] [place], [place] [address] documented as of this encounter
--- OUTSIDE RECORDS SUMMARY | 2022-05-09 13:23 | XMS_ITS | Encounter Summary ---
:1965 Author Organization [place] Address [address] [place] [address] Care Team Providers Name Role Phone Noreen Hills APRN WARDROBE MANAGER Unavailable [phone] Noreen Hills APRN WARDROBE MANAGER Primary Care Provider [phone] Kalyan Galvan Unavailable Unavailable Lashae Trevino [facility] Unavailable [phone] Reason for Visit Reason Onset Date Comments Schedule Surgery 01/13/2020 right thumb trigger finger Encounter Details Date Type Department Care Team Description 01/13/2020 Telephone [facility] Rios Monteiro MD Schedule Surgery [facility] [address] [facility] (r ight thumb trigger [place] [address] 300 finger) [address] [place] [address] [address] [place] [address] [phone] Social History Tobacco Use Types Packs/Day Years [...] How often do you attend christian or roman catholic Patient refused 08/08/2019 services? [...] completed: Not Applicable Date: 01/13/20 Avila Donnelly, Single End Sewer documented in this encounter Plan of Treatment Not on filedocumented as of this encounter Results Asymptomatic COVID-19 Virus (Coronavirus) by PCR (02/06/2020 4:07 PM CDT) [facility] Method Time Signature COVID-19 Nasopharyngeal 02/06/2020 KATHLEEN Virus PCR to 4:35 PM CDT [facility] COVID-19 Not Detected 02/07/2020 [facility] Virus PCR to 2:10 PM CDT [facility]ENTER [facility]ORATORY Comment: Collection of [...] N1,N2 gene targets of CoV2 and human NYLON MACHINE OPERATOR as an internal control. A negative result [...] (Centers for Disease Control) Testing performed by [facility], Room 1-210, [address] [place] [address]. T his test was developed and its [...] Organization Address City/State/ZIP Code Phon e Number [address] [address] [facility] Room: 1-[address] [place] [address] 20 [facility] documented in this encounter Visit Diagnoses Diagnosis Trigger finger of right thumb - Primary Pre-op testing Preoperative examination, unspecified documented in this encounter Additional Health Concerns Assessment Noted Time PHQ-9 Depression Total Score: 9 08/09/2019 7:03 AM ASSOCIATE BIOLOGICAL SALES documented as of this encounter Care Teams Floral Merchandiser Relationship Specialty Start Date End Date Noreen Hills PCP - General Nurse Practitioner 01/09/19 12/12/21 SEAN Haley WARDROBE MANAGER [address] [facility] [place] [phone] Noreen Hills Assigned PCP 06/16/18 SEAN Haley WARDROBE MANAGER [address] [facility] [place] [phone] Kalyan Galvan Personal Advocate & 08/08/19 Liaison (PAL) Lashae Trevino Pharmacist Pharmacist 10/14/19 12/01/20 Kiran, [facility] [address] [place] [address] documented as of this encounter
--- OUTSIDE RECORDS SUMMARY | 2022-05-09 13:23 | XMS_ITS | Encounter Summary ---
:1965 Author Organization [place] Address [address] [place] [address] Care Team Providers Name Role Phone Noreen Hills APRN, CNP Unavailable [phone] Noreen Hills APRN, CNP Primary Care Provider [phone] Kalyan Galvan Unavailable Unavailable Lashae Trevino [facility] Unavailable [phone] Reason for Visit Reason Onset Date Comments Medication Request 03/22/2020 Metformin. Encounter Details Date Type Department Care Team Description 03/22/2020 [facility] Noreen Hills Medication Request Clinic [place] Haley APRN CNP (Metformin.) [address] [place] [address] [facility] [address] [place] [address] [place] [address] [phone] Social History Tobacco Use Types Packs/Day Years [...] March 23, 2020 [facility] Health Guide [phone] Telephone Encounter - Charlotte Mark CMA - 03/22/2020 10:33 AM CDT Fax rec'd from [facility] pharmacy, directions for Metformin 500mg state [...] documented as of this encounter Care Teams [employer] Basketball [employer] Scout Relationship Specialty Start Date End Date Noreen Hills PCP - General Nurse Practitioner 01/09/19 12/12/21 SEAN Haley SEALING AND CANCELING MACHINE OPERATOR [address] [facility] [place] [address] Noreen Hills Assigned PCP 06/16/18 SEAN Haley SEALING AND CANCELING MACHINE OPERATOR [address] [facility] [place] [address] Kalyan Galvan Personal Advocate & 08/08/19 Liaison (PAL) Lashae Trevino Pharmacist Pharmacist 10/14/19 12/01/20 Kiran [facility] [address] [place] [address] documented as of this encounter
--- OUTSIDE RECORDS SUMMARY | 2022-05-09 13:23 | XMS_ITS | Encounter Summary ---
:1965 Author Organization [place] Address [address] [place] [address]. [place] [address] Care Team Providers Name Role Phone Noreen Hills APRN MICROFILM CAMERA OPERATOR Unavailable [phone] Noreen Hills APRN MICROFILM CAMERA OPERATOR Primary Care Provider [phone] Kalyan Galvan Unavailable Unavailable Lashae Trevino [facility] Unavailable [phone] Reason for Visit Diagnostic Imaging XR (Routine) - Closed Specialty Diagnoses / Procedures Referred By Contact Refer red To Contact Diagnoses Pain of right thumb Ramin Romero MD Procedures XR Finger Right G/E [address] [phone] Referral ID Status Reason Start Date Expiration Date Visits Requ ested Visits Authorized [id number] Closed 01/02/2020 01/01/2021 1 1 Encounter Details Date Type Department Care Team Description 01/02/2020 Ancillary Procedure [facility] Ramin Romero Pai n of right thumb Clinic [place] [address] [place] [address] [place] [address] [address] [place] [address] [place] [address] Social History Tobacco Use Types Packs/Day [...] organizations such as No 08/08/2019 judaism groups, Spare Change Paymentss, frafrenting or athletic groups, or school groups? How [...] Depression Total Score: 9 08/09/2019 7:03 AM MINES INSPECTOR documented as of this encounter Care Teams Desizing Machine Operator Head End Relationship Specialty Start Date End Date Noreen Hilsl PCP - General Nurse Practitioner 01/09/19 12/12/21 SEAN Haley MICROFILM CAMERA OPERATOR [address] [facility] [address] [place], [place] [phone] Noreen Hills Assigned PCP 06/16/18 SEAN Haley MICROFILM CAMERA OPERATOR [address] [facility] [place] [phone] Kalyan Galvan Personal Advocate & 08/08/19 Liaison (PAL) Lashae Trevino Pharmacist Pharmacist 10/14/19 12/01/20 Kiran, [facility] [address] [facility] [address] [place], [place] [id number] documented as of this encounter
--- OUTSIDE RECORDS SUMMARY | 2022-05-09 13:23 | XMS_ITS | Encounter Summary ---
:1965 Author Organization [place] Address [address] [place] [address] Care Team Providers Name Role Phone Noreen Hills APRN, CNP Unavailable [phone] Noreen Hills APRN, CNP Primary Care Provider [phone] Kalyan Galvan Unavailable Unavailable Lashae Trevino [facility] Unavailable [phone] Eduardo Sharma MD Unavailable Rios Monteiro MD Unavailable Marcelo Artis-C Unavailable [phone] Rodrigo ManC Unavailable [phone] Reason for Visit Reason Onset Date Comments Refill Request 06/14/2020 blood glucose monito ring (ONE TOUCH DELICA) lancets Refill Request 06/14/2020 blood glucose (ACCU- CHEK JANICE) test strip Encounter Details Date Type Department Care Team Description 06/14/2020 [facility] Noreen Hills Req uest (blood Clinic [place] Haley APRN CNP glucose monitoring (ONE [address] [place] [address] [place] TOUCH DELICA) lancets); [facility] Refclaudia Request (blood [address] [place] [address] glucose [place] [id number] JANICE) test strip) [phone] Social History Tobacco Use Types Packs/Day Years [...] How often do you attend taoist or sikh Patient refused 08/08/2019 services? Do [...] Christy Pelayo RN - 06/16/2020 11:04 AM ICING MACHINE OPERATOR Prescription approved per [facility] Refill Protocol. Christy Pelayo RN Flex G MACHINE OPERATOR Telephone Encounter - Wilda Gupta - 06/14/2020 3:55 PM CST Request from pharmacy states: ONE TOUCH VERIO TEST STRIPS and ONE TOUCH 30G DELICA LNC, G MACHINE OPERATOR documented in this encounter Plan [...] as of this encounter Care Teams Pipe Fittings Molder Relationship Specialty Start Date End Date Noreen Hills PCP - General Nurse Practitioner 01/09/19 12/12/21 SEAN Haley HYDROELECTRIC OPERATOR [address] [facility] [place] [address] Noreen Hills Assigned PCP 06/16/18 SEAN Haley HYDROELECTRIC OPERATOR [address] [facility] [place] [address] Kalyan Galvan Personal Advocate & 08/08/19 Liaison (PAL) Lashae Trevino Pharmacist Pharmacist 10/14/19 12/01/20 [facility] [address] [place], [place] [address] Eduardo Sharma MD Assigned Sleep Provider 04/02/20 05/07/[address] [place] [id number] Rios Monteiro MD Assigned Musculoskeletal 04/02/20 08/24/20 [address] [facility] Provider [address] [place], [place] [address] aMrcelo Artis Assigned Musculoskeletal 08/25/20 08/20/21 MIKAYLA Nuno Provider [address] [place], [place] [address] Rodrigo Man Assigned Surgical 08/25/2011/27 MIKAYLA Lacy Provider [address] [place] [address] documented as of this encounter
--- OUTSIDE RECORDS SUMMARY | 2022-05-09 13:23 | XMS_ITS | Encounter Summary ---
:1965 Author Organization [place] Address [address] [place] [address] Care Team Providers Name Role Phone Noreen Hills APRN HULL DRAFTER Unavailable [phone] Noreen Hills APRN HULL DRAFTER Primary Care Provider Kalyan Galvan Unavailable Unavailable Lashae Trevino [facility] Unavailable [phone] Eduardo Sharma MD Unavailable Rios Monteiro MD Unavailable Marcelo Artis PA-C Unavailable [phone] Rodrigo Man PA-C Unavailable Reason for Visit Reason Onset Date Comments Refill Request 05/29/2020 omeprazole (PRILOSEC ) [address] capsule Encounter Details Date Type Department Care Team Description 05/29/2020 Refill [facility] Noreen Hills Req uest Clinic [place] Haley APRN CNP (omeprazole (PRILOSEC) [address] [place] [address] [facility] [address] capsule) [facility] [address] [place] [address] [place] [address] [phone] Social History Tobacco Use Types Packs/Day Years [...] How often do you attend nondenominational or confucianism Patient refused 08/08/2019 services? Do [...] Keyona Mantilla RN - 05/31/2020 10:42 AM MANUFACTURING EXECUTIVE Patient has refills remaining with requesting pharmacy. Keyona Palacios - Registered Nurse [facility] Acute and Diagnostic Services FACTURING EXECUTIVE Telephone Encounter - Kartik Javier - 05/29/2020 5:01 PM CST Alternative Requested: Insurance covers max 90 days in a year. Please submit PA to continue therapy. FACTURING EXECUTIVE documented in this encounter Plan of Treatment [...] documented as of this encounter Care Teams Fisheries Specialist Relationship Specialty Start Date End Date Noreen Hills PCP - General Nurse Practitioner 01/09/19 12/12/21 SEAN Haley HULL DRAFTER [address] [facility] [place] [phone] Noreen Hills Assigned PCP 06/16/18 SEAN Haley HULL DRAFTER [address] [facility] [place] [address] Kalyan Galvan Personal Advocate & 08/08/19 Liaison (PAL) Lashae Trevino Pharmacist Pharmacist 10/14/19 12/01/20 Kiran [facility] [address] [place] [address] Eduardo Sharma MD Assigned Sleep Provider 04/02/20 05/07/[address] [place] [id number] Rios Monteiro MD Assigned Musculoskeletal 04/02/20 08/24/20 [address] [facility] Provider [address] [place], [place] [address] Marcelo Artis Assigned Musculoskeletal 08/25/20 08/20/21 MIKAYLA [place] Provider [address] [place], [place] [address] Rodrigo Man Assigned Surgical 08/25/2011/27 MIKAYLA Lacy Provider [address] [place] [id number] documented as of this encounter
--- OUTSIDE RECORDS SUMMARY | 2022-05-09 13:23 | XMS_ITS | Encounter Summary ---
:1965 Author Organization [place] Address [address] [place] [address] Care Team Providers Name Role Phone Noreen Hills APRN GOODWILL AMBASSADOR Unavailable [phone] Noreen Hills APRN GOODWILL AMBASSADOR Primary Care Provider [phone] Kalyan Galvan Unavailable Unavailable Lashae Trevino [facility] Unavailable [phone] Encounter Details Date Type Department Care [...] How often do you attend quaker or jew Patient refused 08/08/2019 services? 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
--- OUTSIDE RECORDS SUMMARY | 2022-05-09 13:23 | XMS_ITS | Encounter Summary ---
:1965 Author Organization [place] Address [address] [place] [address] Care Team Providers Name Role Phone Noreen Hills APRN ANGLESMITH HELPER Unavailable [phone] Noreen Hills APRN ANGLESMITH HELPER Primary Care Provider [phone] Kalyan Galvan Unavailable Unavailable Lashae Trevino [facility] Unavailable [phone] Encounter Details Date Type Department Care [...] How often do you attend christianity or bahai Patient refused 08/08/2019 services? Do [...] as of this encounter Care Teams Print Washer Relationship Specialty Start Date End Date Noreen Hills PCP - General Nurse Practitioner 01/09/19 12/12/21 SEAN Haley ANGLESMITH HELPER [address] [facility] [address] [place], [place] [address] Noreen Hills PCP 06/16/18 SEAN Haley ANGLESMITH HELPER [address] [facility] [place] [address] Kalyan Galvan Personal Advocate & 08/08/19 Liaison (PAL) Lashae Trevino Pharmacist Pharmacist 10/14/19 12/01/[facility] [address] [facility] [place] [address] documented as of this encounter
--- OUTSIDE RECORDS SUMMARY | 2022-05-09 13:23 | XMS_ITS | Encounter Summary ---
:1965 Author Organization [place] Address [address] [place] [address] Care Team Providers Name Role Phone Noreen Hills APRN REFINERY OPERATOR ASSISTANT Unavailable [phone] Noreen Hills APRN REFINERY OPERATOR ASSISTANT Primary Care Provider [phone] Kalyan Galvan Unavailable Unavailable Lashae Trevino [facility] Unavailable [phone] Reason for Referral Consultation (Routine) - Closed Specialty Diagnoses / Procedures Referred By Contact Refer red To Contact Diagnoses Pain of right thumb Ramin Romero MD 2019 [facility] 06 11 [place], [place] [phone] Referral ID Status Reason Start Date Expiration Date Visits Requ ested Visits Authorized [id number] Closed 01/02/2020 01/01/2021 1 1 iagnostic Imaging XR (Routine) - Closed Specialty Diagnoses / Procedures Referred By Contact Refer red To Contact Diagnoses Pain of right thumb Ramin Romero MD Procedures XR Finger Right G/E 2 Views 2019 [facility] [place], [place] [phone] Referral ID Status Reason Start Date Expiration Date Visits Requ ested Visits Authorized [id number] Closed 01/02/2020 01/01/2021 1 1 Reason for Visit Reason Comments Urgent Care Thumb Discomfort thumb pain that started 2 we eks ago- popping in and out of joint- thumb brace isnt helping Encounter Details Date Type Department Care Team Description 01/02/2020 Office Visit [facility] Ramin Romero M D Pain of right thumb Urgent Care [place] [address] (Primary Dx) [address] [address] [place] [address] Social History Tobacco Use Types [...] How often do you attend tenriism or anabaptist Patient refused 08/08/2019 services? Do [...] thumb for now. follow up with an crm marketing specialist for further evaluation and treatment. documented [...] ??? fluticasone (FLONASE) 50 MCG/ACT nasal spray [place] 1-2 sprays into both nostrils daily 16 [...] right thumb a lot while working at [employer]. ROS: CONSTITUTIONAL:NEGATIVE for fever INTEGUMENTARY/SKIN: negative [...] at a ligament. PLAN: follow up with crm marketing specialist. I ordered an crm marketing specialist referral. Continue wearing the right thumb splint Place ice onto the right thumb Rest the right thumb as much as possible. 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 documented as of this encounter Care Teams Trolley Wire Installer Relationship Specialty Start Date End Date Noreen Hills PCP - General Nurse Practitioner 01/09/19 12/12/21 SEAN Haley REFINERY OPERATOR ASSISTANT [address] [facility] [place] [id number] Noreen Hills Assigned PCP 06/16/18 SEAN Haley REFINERY OPERATOR ASSISTANT [address] [facility] [place] [address] Kalyan Galvan Personal Advocate & 08/08/19 Liaison (PAL) Lashae Trevino Pharmacist Pharmacist 10/14/19 12/01/20 Kiran, [facility] [address] [facility] [place] [id number] documented as of this encounter
--- OUTSIDE RECORDS SUMMARY | 2022-05-09 13:23 | XMS_ITS | Encounter Summary ---
:1965 Author Organization [place] Address [address] [place] [address] Care Team Providers Name Role Phone Noreen Hills APRN FINANCIAL SYSTEMS ANALYST Unavailable [phone] Noreen Hills APRN FINANCIAL SYSTEMS ANALYST Primary Care Provider [phone] Kalyan Galvan Unavailable Unavailable Lashae Trevino [facility] Unavailable [phone] Encounter Details Date Type Department Care Team Description 03/09/2020 Telephone [facility] Marcelo Artis, Orthopedic Clinic [place] [address] [facility] [address] [facility] [address] [place] [address] [place] [address] [phone] Social History Tobacco Use Types Packs/Day Years [...] How often do you attend scientology or jain Patient refused 08/08/2019 services? Do [...] cardboard with a scissors due to discomfort. Exterior Work Helper informed Megan that swelling is normal after surgery, and make take ~6 weeks to fully dissipate. She approved of verbiage for updated work letter to say the following OK to return to work with no restrictions on 03/11/20. If she is unable to tolerate her normal work duties and she will follow up with my office for reevaluation. Patient will access letter via [employer]. 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 FIXER HELPER documented as of this encounter Care Teams Narrow Fabric Calenderer Relationship Specialty Start Date End Date Noreen Hills PCP - General Nurse Practitioner 01/09/19 12/12/21 SEAN Haley FINANCIAL SYSTEMS ANALYST [address] [facility] [place] [address] Noreen Hills Assigned PCP 06/16/18 SEAN Haley FINANCIAL SYSTEMS ANALYST [address] [facility] [place] [address] Kalyan Galvan Personal Advocate & 08/08/19 Liaison (PAL) Lashae Trevino Pharmacist Pharmacist 10/14/19 12/01/20 Kiran [facility] [address] [place] [address] documented as of this encounter
--- OUTSIDE RECORDS SUMMARY | 2022-05-09 13:24 | XMS_ITS | Encounter Summary ---
:1965 Author Organization [place] Address [address] [facility] [place] [address] Care Team Providers Name Role Phone Noreen Hills APRN MYCOLOGIST Unavailable [phone] Noreen Hills APRN MYCOLOGIST Primary Care Provider [phone] Kalyan Galvan Unavailable Unavailable Lashae Trevino [facility] Unavailable [phone] Reason for Referral Consultation (Routine) - Closed Specialty Diagnoses / Procedures Referred By Contact Refer red To Contact Diagnoses Chronic insomnia Eduardo Sharma MD [address] [address] Referral ID Status Reason Start Date Expiration Date Visits Requ ested Visits Authorized [id number] Closed 10/31/2019 10/30/2020 1 1 Reason for Visit Consultation (Routine) - Closed Specialty Diagnoses / Procedures Referred By Contact Refer red To Contact Diagnoses Snoring Noreen Hills [facility] SENIOR SOFTWARE ENGINEER ANALYTICS MYCOLOGIST [facility] [address] [place] [address] [place] [address] Referral ID Status Reason Start Date Expiration Date Visits Requ ested Visits Authorized [id number] Closed 08/08/2019 08/07/2020 1 1 Encounter Details Date Type Department Care Team Description 10/31/2019 Virtual Visit [facility] JeanaNoreen, SEAN MYCOLOGIST [address] [facility] [place] [address] Snoring (Primary Dx); Sleep Centers Eduardo Goldman MD [address] [facility] [address] [place] [id number] Chronic insomnia; [address] [facility] MYLES (obst ructive sleep apnea); [facility] [address] [place] [address] Social History [...] How often do you attend zoroastrianism or amish Patient refused 08/08/2019 services? Do [...] They lamps are sold at [employer] such as [employer] or [employer]. A prescription can be written to get insurance coverage in some cases. They are also sold on [employer]. Using the light and melatonin should help [...] it is recommended that you consult an yard laborer before using a light box. If you have a condition that makes your eyes very sensitive to light, macular degeneration, a family history of such problems, or diabetic changes to your eyes, consult an yard laborer before using a light box. If you [...] 10:00 AM. 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 fluticasone (FLONASE) 50 MCG/ACT nasal spray [place] 1-2 sprays into both nostrils daily 16 [...] Address next visit ??? Family history of [place] (myocardial infarction) 04/13/2008 Priority: Medium At early age, father [place] at age 40 Past Medical/Surgical History: Past [...] Other Topics Concern ??? Parent/sibling w/ CABG, [place] or angioplasty before 65F 55M? No Social History Narrative ??? Not on file Family History: Family History Problem Relation Age of Onset ??? Cardiovascular Mother [place] age 72 ??? Diabetes Mother Type II ??? Hypertension Mother ??? Lipids Mother ??? Arthritis Mother OA ??? Kidney Disease Mother 70 ??? Cardiovascular Father [place] early 40s, subsequent bipass ??? Hypertension Father [...] Name Type Priority Associated Diagnoses Order [facility] SLEEP PSYCHOLOGY REFERRAL Referral Routine Chronic [...] Depression Total Score: 9 08/09/2019 7:03 AM IMMIGRATION INVESTIGATOR documented as of this encounter Care Teams Snowboard Instructor Relationship Specialty Start Date End Date Noreen Hills PCP - General Nurse Practitioner 01/09/19 12/12/21 SEAN Haley MYCOLOGIST [address] [facility] [place] [address] Noreen Hills Assigned PCP 06/16/18 SEAN Haley MYCOLOGIST [address] [facility] [place] [address] Kalyan Galvan Personal Advocate & 08/08/19 Liaison (PAL) Lashae Trevino Pharmacist Pharmacist 10/14/19 12/01/20 Kiran, [facility] [address] [place], [place] [id number] documented as of this encounter
--- OUTSIDE RECORDS SUMMARY | 2022-05-09 13:24 | XMS_ITS | Encounter Summary ---
:1965 Author Organization [place] Address [address] [place] [address]. [place] [address] Care Team Providers Name Role Phone Noreen Hills APRN CUSTOMER PROGRAM SPECIALIST Unavailable [phone] Noreen Hills APRN CUSTOMER PROGRAM SPECIALIST Primary Care Provider [phone] Kalyan Galvan Unavailable Unavailable Lashae Trevino [facility] Unavailable [phone] Reason for Visit Reason Comments Sleep Problem [facility] Encounter Details Date Type Department Care Team Description 12/10/2019 Documentation Only [facility] Sleep Sleep Problem ([facility]) Center [address], [address] [place] [address] Social History Tobacco Use Types [...] How often do you attend jew or restorationist Patient refused 08/08/2019 services? Do [...] Depression Total Score: 9 08/09/2019 7:03 AM HEDIS REVIEW NURSE documented as of this encounter Care Teams Pickling Operator Relationship Specialty Start Date End Date Noreen Hills PCP - General Nurse Practitioner 01/09/19 12/12/21 SEAN Haley CUSTOMER PROGRAM SPECIALIST [address] [place] [address] Noreen Hills Assigned PCP 06/16/18 SEAN Haley CUSTOMER PROGRAM SPECIALIST [address] [facility] [place] [phone] Kalyan Galvan Personal Advocate & 08/08/19 Liaison (PAL) Lashae Trevino Pharmacist Pharmacist 10/14/19 12/01/20 Kiran, [facility] [address] [facility] [address] [place] [id number] documented as of this encounter
--- OUTSIDE RECORDS SUMMARY | 2022-05-09 13:24 | XMS_ITS | Encounter Summary ---
:1965 Author Organization [place] Address [address] [place] [address] Care Team Providers Name Role Phone Noreen Hills APRN TRAINING DEVELOPER Unavailable [phone] Noreen Hills APRN, CNP Primary Care Provider [phone] Kalyan Galvan Unavailable Unavailable Lashae Trevino [facility] Unavailable [phone] Reason for Visit Reason Comments Medication Refill Encounter Details Date Type Department Care Team Description 12/10/2019 Refill [facility] Noreen Hills, Medication Refill Pino ESTRADA TRAINING DEVELOPER [address] [facility] [address] [place] [address] [address] [place] [address] [place] [address] [phone] Social History Tobacco Use Types Packs/Day Years [...] How often do you attend congregational or rastafari Patient refused 08/08/2019 services? Do [...] Depression Total Score: 9 08/09/2019 7:03 AM GENERAL DOC documented as of this encounter Care Teams Medical Practice Administrator Relationship Specialty Start Date End Date Noreen Hills PCP - General Nurse Practitioner 01/09/19 12/12/21 SEAN Haley TRAINING DEVELOPER [address] [facility] [place] [address] Noreen Hills Assigned PCP 06/16/18 SEAN Haley TRAINING DEVELOPER [address] [facility] [place] [phone] Klayan Galvan Personal Advocate & 08/08/19 Liaison (PAL) Lashae Trevino Pharmacist Pharmacist 10/14/19 12/01/20 Kiran [facility] [address] [facility] [place] [address] documented as of this encounter
--- OUTSIDE RECORDS SUMMARY | 2022-05-09 13:24 | XMS_ITS | Encounter Summary ---
:1965 Author Organization [place] Address [address] [place] [address]. [place] [address] Care Team Providers Name Role Phone Pankaj Hills APRN ACCOUNTING MACHINE SERVICER Unavailable [phone] Pankaj Hills APRN ACCOUNTING MACHINE SERVICER Primary Care Provider [phone] Kalyan Galvan Unavailable Unavailable Lashae Trevino [facility] Unavailable [phone] Reason for Visit Reason Comments Chest Pain Encounter Details Date Type Department Care Team Description 11/06/2019 Emergency [facility] Kera Bernard MD Chest pain, unspecified type; [facility] Emergency Dep t EMERGENCY PHYSICIANS Family history of [place] (myocar dial infarction) [address] [place], [place] [address] [facility] [address] [place], [place] [phone] (Wo rk) Social History Tobacco Use Types [...] How often do you attend latter-day or confucianist Patient refused 08/08/2019 services? Do [...] through Care Everywhere. Chest Pain, Uncertain Cause (Irish)documented in this encounter Medications at Time of [...] goal < 7% (H) fluticasone (FLONASE) 50 [place] 1-2 sprays 16 g 11 08/08 MCG/ACT [...] T&A Left peritoneal tendon repair Family History: AR age 71, type 2 DM, HTN, lipids, osteoarthritis, kidney disease: mother [place] s/p CABG, HTN, diabetes, lipids: father Lipids, [...] Chest pain Time: 18:19:30 Rate 70 bpm. MA interval 174. QRS duration 96. QT/QTc 394/425. [...] GERD (gastroesophageal reflux disease); Family history of [place] (myocardial infarction); Persistent insomnia; Type 2 diabetes [...] Echo Stress Echocardiogram 2. Family history of [place] (myocardial infarction) Z82.49 Echo Stress Echocardiogram Disposition: Discharged home Kallie Garcia 11/06/2019 [facility] EMERGENCY DEPARTMENT Scribe Disclosure: I, [...] AM CDT Narrative 12/16/2019 12:34 PM CDT [id number]^QASIM^KERA^S [facility] Echocardiography Laboratory [address] [place] [address] Name: MEGAN WONG : 1965 Study Date: 12/16/2019 09:06 AM Age: 54 yrs Gender: Female Patient Location: [facility] Reason For Study: Chest pain, unspecifie d type, Family history of [place] (myocardial i History: Diabetes, Family Hx, Hyperlipid [...] note might be different from the original. [id number] [facility] [id number]^QASIM^KERA^Tobi [facility] Echocardiography Laboratory [address] [place] [address] Name: MEGAN WONG : 1965 Study Date: 12/16/2019 09:06 AM Age: 54 yrs Gender: Female Patient Location: [facility] Reason For Study: Chest pain, unspecifie d type, Family history of [place] (myocardial i History: Diabetes, Family Hx, Hyperlipid [...] CDT EXAM: XR CHEST 2 VW LOCATION: [facility] DATE/TIME: 11/06/2019 7:58 PM INDICATION: Chest pain COMPARISON: None. Procedure Note Zachary Pardo MD - 11/06/2019Formatt ing of this note might be different from the original. EXAM: XR CHEST 2 VW LOCATION: [facility] DATE/TIME: 11/06/2019 7:58 PM INDICATION: Chest pain COMPARISON: None. IMPRESSION: Negative chest. Postsurgical change in the lower cervical spine. Kera Bernard MD IMG DIAGNOSTIC IMAGING ORDER ILDEFONSO (ABNORMAL) Lipase (11/06/2019 6:28 PM CDT) athologist Signature Lipase 66 (L) 73 - 393 11/06/2019 [facility] U/L 7:36 PM CDT HOSPITAL Specimen Anatomical Collection Method Collection Time Receive d Time (Source) Location / / Volume Laterality 11/06/2019 6:28 PM 0 6:35 CDT PM CDT Kera Bernard MD LAB - BLOOD ORDERABLES Performing Organization Address [facility] Phon e [place] [phone] [place] [phone] D dimer quantitative (11/06/2019 6:28 PM CDT) athologist Signature D Dimer 0.5 0.0 - 0.50 11/06/2019 [facility] ug/ml FEU 7:40 PM CDT HOSPITAL Comment: [...] LAB - BLOOD ORDERABLES Performing Organization Address [facility] Phon e Number [facility] [address] [place] [address] [facility] [address] [place], [place] [address] [phone] (ABNORMAL) Hepatic panel (11/06/2019 6:28 PM CDT) Analysis Performed At Patho logist Time Signature Bilirubin Direct <0.1 0.0 - 0.2 11/06/2019 [place] mg/dL 7:45 PM T [facility] Bilirubin Total 0.3 0.2 - 1.3 11/06/2019 [place] mg/dL 7:45 PM T [facility] Albumin 3.7 3.4 - 5.0 11/06/2019 [place] g/dL 7:45 PM [facility] Protein Total 7.8 6.8 - 8.8 11/06/2019 [place] g/dL 7:45 PM [facility] Alkaline 157 (H) 40 - 150 11/06/2019 [place] Phosphatase U/L 7:45 PM [facility] ALT 36 0 - 50 U/L 11/06/2019 [place] 7:45 PM [facility] AST 21 0 - 45 U/L 11/06/2019 [place] 7:45 PM [facility] Specimen Anatomical Collection Method Collection Time Receive d Time (Source) Location / / Volume Laterality 11/06/2019 6:28 PM 0 6:35 CDT PM CDT Kera Bernard MD LAB - BLOOD ORDERABLES Performing Organization Address City/State/ZIP Code Phon e Number M [facility] [address] [place] [address] [phone] [facility] [address] [place] [address], [phone] Troponin I (now) (11/06/2019 6:28 PM CDT) P athologist Signature Troponin I ES <0.015 0.000 - 11/06/2019 [place] 0.045 ug/L 7:00 PM T [facility] Comment: The 99th percentile for upper [...] Address City/State/ZIP Code Phon e Number [place] [address] [address] [place], [place] [address] [facility] [address] [place], [place] [address] [phone] (ABNORMAL) Basic metabolic panel (BMP) (11/06/2019 6:28 PM CDT) athologist Signature Sodium 140 133 - 144 11/06/2019 [place] mmol/L 6:50 PM [facility] Potassium 3.5 3.4 - 5.3 11/06/2019 [place] mmol/L 6:50 PM [facility] Chloride 107 94 - 109 11/06/2019 [place] mmol/L 6:50 PM [facility] Carbon Dioxide 28 20 - 32 11/06/2019 [place] mmol/L 6:56 PM [facility] Anion Gap 5 3 - 14 11/06/2019 [place] mmol/L 6:56 PM [facility] Glucose 129 (H) 70 - 99 11/06/2019 [place] mg/dL 6:56 PM [facility] Urea Nitrogen 17 7 - 30 11/06/2019 [place] mg/dL 6:56 PM [facility] Creatinine 0.82 0.52 - 11/06/2019 [place] 1.04 mg/dL 6:56 PM [facility] GFR Estimate 80 >60 11/06/2019 [place] mL/min/{1. 6:56 PM [facility] 73_m2} HOSPITAL Comment: Non GFR Calc Starting 05/28/2018, serum creatinine ba sed estimated GFR (eGFR) will be calculated using the Chronic Kidney Dise ase Epidemiology Collaboration (CKD-EPI) equation. GFR Estimate If >90 >60 mL/min/{1.73_m2} 11/06/2019 6: 56 PM [facility] Comment: GFR Calc Starting 05/28/2018, serum creatinine [...] Address City/State/ZIP Code Phon e Number [place] [id number] [place] [address] [facility] [address] [place] [address], [facility] [phone] [address], [facility] CBC + differential (11/06/2019 6:28 PM CDT) [facility] gist Method Time Signature WBC 7.2 4.0 - 11/06/2019 [facility] 11.0 6:41 PM [facility] 10e9/L [facility] RBC Count 4.83 3.8 - 5.2 11/06/2019 [facility] 10e12/L 6:41 PM [facility] Hemoglobin 14.8 11.7 - 11/06/2019 [facility] 15.7 g/dL 6:41 PM [facility] Hematocrit 45.7 35.0 - 11/06/2019 [facility] 47.0 % 6:41 PM [facility] MCV 95 78 - 100 11/06/2019 [facility] fl 6:41 PM [facility] MCH 30.6 26.5 - 11/06/2019 [facility] 33.0 pg 6:41 PM [facility] MCHC 32.4 31.5 - 11/06/2019 [facility] 36.5 g/dL 6:41 PM [facility] RDW 12.6 10.0 - 11/06/2019 [facility] 15.0 % 6:41 PM [facility] Platelet Count 259 150 - 450 11/06/2019 [facility] 10e9/L 6:41 PM [facility] Diff Method Automated 11/06/2019 [facility] Method 6:41 PM [facility] % Neutrophils 42.4 % 11/06/2019 [facility] 6:41 PM [facility] % Lymphocytes 45.5 % 11/06/2019 [facility] 6:41 PM [facility] % Monocytes 9.2 % 11/06/2019 [facility] 6:41 PM [facility] % Eosinophils 1.7 % 11/06/2019 [facility] 6:41 PM [facility] % Basophils 1.1 % 11/06/2019 [facility] 6:41 PM [facility] % Immature 0.1 % 11/06/2019 [facility] Granulocytes 6:41 PM [facility] Nucleated RBCs 0 0 /100 11/06/2019 [facility] 6:41 PM [facility] Absolute 3.0 1.6 - 8.3 11/06/2019 [facility] Neutrophil 10e9/L 6:41 PM [facility] Absolute 3.3 0.8 - 5.3 11/06/2019 [facility] Lymphocytes 10e9/L 6:41 PM [facility] Absolute 0.7 0.0 - 1.3 11/06/2019 [facility] Monocytes 10e9/L 6:41 PM [facility] Absolute 0.1 0.0 - 0.7 11/06/2019 [facility] Eosinophils 10e9/L 6:41 PM [facility] Absolute 0.1 0.0 - 0.2 11/06/2019 [facility] Basophils 10e9/L 6:41 PM [facility] Abs Immature 0.0 0 - 0.4 11/06/2019 [facility] Granulocytes 10e9/L 6:41 PM [facility] Absolute 0.0 11/06/2019 [facility] Nucleated RBC 6:41 PM [facility] Specimen Anatomical Collection Method Collection Time Receive d Time (Source) Location / / Volume Laterality Blood specimen 11/06/2019 6:28 PM 020 6:35 (specimen) CDT CDT Kera Bernard MD LAB - BLOOD ORDERABLES Performing Organization Address City/State/ZIP Code Phon e Number M [facility] [address] [place], [place] [address] [facility] [address] [place], [place] [address] [phone] EKG 12 lead (11/06/2019 6:19 PM CDT) [facility] gist Method Time Signature Interpretation ECG [...] Chest pain, unspecified type Family history of AR (myocardial infarct ion) Family history of ischemic heart disease Chest pain, unspecified type Family history of AR (myocardial infarct ion) Family history of ischemic [...] Chica Alejandro, RERE) 30 mL, Oral, ONCE, [facility] 11/06/19 at 1916, For 1 dose documented in this encounter Additional Health Concerns Assessment Noted Time PHQ-9 Depression Total Score: 9 08/09/2019 7:03 AM TRANSPORTATION ANALYST documented as of this encounter Care Teams Cnc Maintenance Mechanic Relationship Specialty Start Date End Date Pankaj Hills PCP - General Nurse Practitioner 01/09/19 12/12/21 SEAN Haley ACCOUNTING MACHINE SERVICER [address] [facility] [place] [address] Pankaj Hills Assigned PCP 06/16/18 SEAN Haley ACCOUNTING MACHINE SERVICER [address] [facility] [place] [address] Kalyan Galvan Personal Advocate & 08/08/19 Liaison (PAL) Lashae Trevino Pharmacist Pharmacist 10/14/19 12/01/20 Kiran [facility] [address] [facility] [place] [address] documented as of this encounter
--- OUTSIDE RECORDS SUMMARY | 2022-05-09 13:24 | XMS_ITS | Encounter Summary ---
:1965 Author Organization [place] Address [address] [place] [address] Care Team Providers Name Role Phone Noreen Hills APRN PAYROLL BOOKKEEPER Unavailable [phone] Noreen Hills APRN PAYROLL BOOKKEEPER Primary Care Provider Kalyan Galvan Unavailable Unavailable Lashae Trevino [facility] Unavailable [phone] Reason for Visit Reason Onset Date Comments Appointment 11/07/2019 Encounter Details Date Type Department Care Team Description 11/07/2019 Telephone [facility] Marilin Marshall, UNDERWRITING TECHNICIAN Appointment [place] [address] [facility] [address] [facility] [place] [address] [address] [place] [address] [phone] Social History Tobacco Use Types Packs/Day Years [...] How often do you attend uatsdin or moravian Patient refused 08/08/2019 services? Do [...] Total Score: 9 08/09/2019 7:03 AM ENGINEERING INSTRUCTOR documented as of this encounter Care Teams Control Systems Eng Relationship Specialty Start Date End Date Noreen Hills PCP - General Nurse Practitioner 01/09/19 12/12/21 SEAN Haley PAYROLL BOOKKEEPER [address] [facility] [place] [address] Noreen Hills Assigned PCP 06/16/18 SEAN Haley PAYROLL BOOKKEEPER [address] [facility] [place] [address] Kalyan Galvan Personal Advocate & 08/08/19 Liaison (PAL) Lashae Trevino Pharmacist Pharmacist 10/14/19 12/01/20 Kiran, [facility] [address] [place] [address] documented as of this encounter
--- OUTSIDE RECORDS SUMMARY | 2022-05-09 13:24 | XMS_ITS | Encounter Summary ---
:1965 Author Organization [place] Address [address] [place] [address]. [place] [address] Care Team Providers Name Role Phone Noreen Hills APRN ADDRESSOGRAPH OPERATOR Unavailable [phone] Noreen Hills APRN ADDRESSOGRAPH OPERATOR Primary Care Provider Kalyan Galvan Unavailable Unavailable Reason for Visit Reason Onset Date Comments Pain 10/07/2019 left leg pain Consultation (Routine) - Closed Specialty Diagnoses / Procedures Referred By Contact Refer red To Contact Orthopedics and Sports Diagnoses Pain of left lower leg Noreen Hills [facility] SEAN Haley CNP ORTHOPEDIC CLINIC [address] [facility]?? [facility] [address] [facility] [place] [address] [address] [place] [address] Phone: Fax: Referral ID Status Reason Start Date Expiration Date Visits Requ ested Visits Authorized [id number] Closed 09/30/2019 09/29/2020 1 1 Encounter Details Date Type Department Care Team Description 10/07/2019 Virtual Visit [facility] Noreen Hills APRN ADDRESSOGRAPH OPERATOR [address] [facility] [place] [address] Pain of left lower [place] [facility] Rodrigo Man PA-C [address] [facility] [address] [place], [place] [address] [address] [address] Social History Tobacco Use Types [...] How often do you attend zoroastrianism or advent Patient refused 08/08/2019 services? Do [...] ??? fluticasone (FLONASE) 50 MCG/ACT nasal spray, [place] 1-2 sprays into both nostrils daily, Disp: [...] Depression Total Score: 9 08/09/2019 7:03 AM NURSING RESIDENT documented as of this encounter Care Teams Legal Records Manager Relationship Specialty Start Date End Date Noreen Hills PCP - General Nurse Practitioner 01/09/19 12/12/21 SEAN Haley ADDRESSOGRAPH OPERATOR [address] [facility] [place] [address] Noreen Hills Assigned PCP 06/16/18 SEAN Haley ADDRESSOGRAPH OPERATOR [address] [facility] [place] [address] Kalyan Galvan Personal Advocate & 08/08/19 Liaison (PAL) documented as of this encounter
--- OUTSIDE RECORDS SUMMARY | 2022-05-09 13:24 | XMS_ITS | Encounter Summary ---
:1965 Author Organization [place] Address [address] [place] [address] Care Team Providers Name Role Phone Noreen Hills APRN FILENET ADMIN Unavailable [phone] Noreen Hills APRN FILENET ADMIN Primary Care Provider [phone] Kalyan Galvan Unavailable Unavailable Lashae Trevino [facility] Unavailable [phone] Encounter Details Date Type Department Care [...] How often do you attend islam or faith Patient refused 08/08/2019 services? Do [...] Depression Total Score: 9 08/09/2019 7:03 AM FOOD PREP WORKER documented as of this encounter Care Teams Supervisor Microfilm Duplicating Unit Relationship Specialty Start Date End Date Noreen Hills PCP - General Nurse Practitioner 01/09/19 12/12/21 SEAN Haley FILENET ADMIN [address] [facility] [address] [place], [place] [address] Noreen Hills PCP 06/16/18 SEAN Haley FILENET ADMIN [address] [facility] [place] [address] Kalyan Galvan Personal Advocate & 08/08/19 Liaison (PAL) Lashae Trevino Pharmacist Pharmacist 10/14/19 12/01/20 [facility] [address] [facility] [address] [place], [place] [address] documented as of this encounter
--- OUTSIDE RECORDS SUMMARY | 2022-05-09 13:24 | XMS_ITS | Encounter Summary ---
:1965 Author Organization [place] Address [address] [place] [address] Care Team Providers Name Role Phone Noreen Hills APRN PARTS CLASSIFIER Unavailable [phone] Noreen Hills APRN PARTS CLASSIFIER Primary Care Provider [phone] Kalyan Galvan Unavailable Unavailable Lashae Trevino [facility] Unavailable [phone] Encounter Details Date Type Department Care [...] Depression Total Score: 9 08/09/2019 7:03 AM GOLF CLUB MANAGER documented as of this encounter Care Teams Qm Consultant Relationship Specialty Start Date End Date Noreen Hills PCP - General Nurse Practitioner 01/09/19 12/12/21 SEAN Haley PARTS CLASSIFIER [address] [place], [place] [address] Noreen Hills PCP 06/16/18 SEAN Haley PARTS CLASSIFIER [address] [place] [address] Kalyan Galvan Personal Advocate & 08/08/19 Liaison (PAL) Lashae Trevino Pharmacist Pharmacist 10/14/19 12/01/[facility] [address] [place], [place] [address] documented as of this encounter
--- OUTSIDE RECORDS SUMMARY | 2022-05-09 13:24 | XMS_ITS | Encounter Summary ---
:1965 Author Organization [place] Address [address] [place] [address] Care Team Providers Name Role Phone Noreen Hills APRN GLOBAL COMPENSATION DIRECTOR Unavailable [phone] Noreen Hills APRN GLOBAL COMPENSATION DIRECTOR Primary Care Provider [phone] Kalyan Galvan Unavailable Unavailable Lashae Trevino [facility] Unavailable [phone] Reason for Visit Diagnostic Imaging MRI (Routine) - Closed Specialty Diagnoses / Procedures Referred By Contact Refer red To Contact Radiology. Diagnoses Pain of left lower leg Rodrigo Man Mri Procedures MR Lumbar Spine w/o Contrast MR Lumbar Spine w/o & w Contrast MIKAYLA Lacy [address] [facility] [place] [id number] [place] [address] Referral ID Status Reason Start Date Expiration Date Visits Requ ested Visits Authorized [id number] Closed 10/07/2019 10/06/2020 1 1 Encounter Details Date Type Department Care Team Description 10/21/2019 Hospital Encounter M [facility] Alejo Donovan, Pain of left lower [facility] Rodrigo Lacy leg [address] [place] [address] [address] [place] [address] [address] [place] [address] [place] [address] Social History Tobacco Use Types Packs/Day Years [...] How often do you attend voodoo or roman catholic Patient refused 08/08/2019 services? [...] goal < 7% (H) fluticasone (FLONASE) 50 [place] 1-2 sprays 16 g 11 08/08 MCG/ACT [...] Depression Total Score: 9 08/09/2019 7:03 AM BODY MECHANIC documented as of this encounter Care Teams Nursing Services Manager Relationship Specialty Start Date End Date Noreen Hills PCP - General Nurse Practitioner 01/09/19 12/12/21 SEAN Haley GLOBAL COMPENSATION DIRECTOR [address] [facility] [place] [phone] Noreen Hills Assigned PCP 06/16/18 SEAN Haley GLOBAL COMPENSATION DIRECTOR [address] [facility] [place] [phone] Kalayn Galvan Personal Advocate & 08/08/19 Liaison (PAL) Lashae Trevino Pharmacist Pharmacist 10/14/19 12/01/20 Kiran [facility] [address] [facility] [place] [id number] documented as of this encounter
--- OUTSIDE RECORDS SUMMARY | 2022-05-09 13:24 | XMS_ITS | Encounter Summary ---
:1965 Author Organization [place] Address [address] [place] [address] Care Team Providers Name Role Phone Pankaj Woods APRN TRANSPORT ASSISTANT Unavailable [phone] Pankaj Woods APRN TRANSPORT ASSISTANT Primary Care Provider Kalyan Galvan Unavailable Unavailable Lashae Trevino [facility] Unavailable [phone] Reason for Visit (Routine) - Closed Specialty Diagnoses / Procedures Referred By Contact Refer red To Contact Cardiology Diagnoses NO BB Rh Cardiac Services Procedures ECHO STRESS TEST [address] [place], [place] [address] Phone: Referral ID Status Reason Start Date Expiration Date Visits Requ ested Visits Authorized [id number] Closed 12/16/2019 12/15/2020 1 1 Encounter Details Date Type Department Care Team Description 12/16/2019 Hospital Encounter [facility] Kera Bernard, Chest pain, unspecified type; [facility] Family history of [place] (myocardial infarct ion) [facility] [address] [facility] [place], [place] [address] [address] [place], [place] [phone] Social History Tobacco Use Types Packs/Day Years [...] How often do you attend buddhism or catholic Patient refused 08/08/2019 services? Do you belong to any clubs or organizations such as No 08/08/2019 buddhism groups, [employer], fraEnergy Telecom or athletic groups, or school groups? How [...] goal < 7% (H) fluticasone (FLONASE) 50 [place] 1-2 sprays 16 g 11 08/08 MCG/ACT [...] procedure are in CONTRAST Family history of [place] the res ults (myocardial section. infarction) documented in this encounter Results ECHO EXERCISE STRESS TEST WITH CONTRAST (12/16/2019 9:43 AM CDT) Anatomical Region Laterality Modality Echocardiography Specimen (Source) Anatomical Collection Method Collection Time Re ceived Time Location / / Volume Laterality 12/16/2019 9:06 AM CDT Narrative 12/16/2019 12:34 PM CDT [id number]^QASIM^KERA^Tobi [facility] Echocardiography Laboratory [address] [place] [address] Name: MEGAN CHOI : 1965 Study Date: 12/16/2019 09:06 AM Age: 54 yrs Gender: Female Patient Location: [facility] Reason For Study: Chest pain, unspecifie d type, Family history of [place] (myocardial i History: Diabetes, Family Hx, Hyperlipid emia Ordering Physician: KERA BERNARD Referring Physician: PANKAJ WOODS Performed By: Sandra [...] note might be different from the original. [id number]^QASIM^KERA^Tobi [facility] Echocardiography Laboratory [address] [place] [address] Name: MEGAN CHOI : 1965 Study Date: 12/16/2019 09:06 AM Age: 54 yrs Gender: Female Patient Location: [facility] Reason For Study: Chest pain, unspecifie d type, Family history of [place] (myocardial i History: Diabetes, Family Hx, Hyperlipid emia Ordering Physician: KERA BERNARD Referring Physician: PANKAJ WOODS Performed By: Sandra [...] __ Kera Bernard MD CV ECHO ORDERABLES documented in this encounter Visit Diagnoses Diagnosis Chest pain, unspecified type Family history of [place] (myocardial infarct ion) Family history of ischemic [...] On Sun12/16/19 at 0945, For 1 dose, [facility] 9644-0547-85 sodium chloride (PF) 0.9% PF flush 10 mL Given 12/16/2019 9:44 AM CDT 10 mLs 10 mL, Intracatheter, ONCE, On Sun12/16/19 at 0945, For 1 dose documented in this encounter Additional Health Concerns Assessment Noted Time PHQ-9 Depression Total Score: 9 08/09/2019 7:03 AM FINANCE ATTORNEY documented as of this encounter Care Teams Industrial Relations Officer Relationship Specialty Start Date End Date Pankaj Woods PCP - General Nurse Practitioner 01/09/19 12/12/21 SEAN Haley TRANSPORT ASSISTANT [address] [facility] [place] [phone] Pankaj Woods Assigned PCP 06/16/18 SEAN Haley TRANSPORT ASSISTANT [address] [facility] [place] [phone] Kalyan Galvan Personal Advocate & 08/08/19 Liaison (PAL) Lashae Treivno Pharmacist Pharmacist 10/14/19 12/01/20 Kiran [facility] [address] [phone] documented as of this encounter
--- OUTSIDE RECORDS SUMMARY | 2022-05-09 13:24 | XMS_ITS | Encounter Summary ---
:1965 Author Organization [place] Address [address] [place] [address] Care Team Providers Name Role Phone Noreen Hills APRN CHUTE PULLER Unavailable [phone] Noreen Hills APRN, CNP Primary Care Provider [phone] Kalyan Galvan Unavailable Unavailable Encounter Details Date [...] How often do you attend episcopalian or buddhist Patient refused 08/08/2019 services? Do [...] Total Score: 9 08/09/2019 7:03 AM CANE PUSHER documented as of this encounter Care Teams Institutional Research Director Relationship Specialty Start Date End Date Noreen Hills PCP - General Nurse Practitioner 01/09/19 12/12/21 SEAN Haley CHUTE PULLER [address] [facility] [place] [address] Noreen Hills Assigned PCP 06/16/18 SEAN Haley CHUTE PULLER [address] [facility] [place] [address] Kalyan Galvan Personal Advocate & 08/08/19 Liaison (PAL) documented as of this encounter
--- OUTSIDE RECORDS SUMMARY | 2022-05-09 13:24 | XMS_ITS | Encounter Summary ---
:1965 Author Organization [place] Address [address] [place] [address] Care Team Providers Name Role Phone Noreen Hills APRN MEDICAL INSURANCE CLERK Unavailable [phone] Noreen Hills APRN [facility] Primary Care Provider [phone] Kalyan Galvan Unavailable Unavailable Lashae Trevino [facility] Unavailable [phone] Reason for Visit Reason Comments Medication Therapy Management Med Therapy Management (Routine) - Closed Specialty Diagnoses / Procedures Referred By Contact Refer red To Contact Pharmacist Diagnoses Dry mouth Noreen Hills APRN [facility] MEDICAL INSURANCE CLERK [address] [facility] [place] [address] Referral ID Status Reason Start Date Expiration Date Visits Requ ested Visits Authorized [id number] Closed 09/30/2019 09/29/2020 1 1 Encounter Details Date Type Department Care Team Description 10/14/2019 [facility] [place] Lashae Trevino ation Therapy Health/Nurse Clinic Pino Beck [facility] Management Visit [address] [place] [address] [place] [address] [address] [place] [address] (Work) [phone] Social History Tobacco Use Types Packs/Day Years [...] such as No 08/08/2019 cheondoism groups, unions, fraSynesis or athletic groups, or school groups? How [...] of this encounter Progress Notes Lashae Trevino, [facility] - 10/14/2019 9:30 AM CDT MTM ENCOUNTER SUBJECTIVE/OBJECTIVE: Megan Choi is a 54 year old female called for an initial visit. She was referred to me from [facility]. Patient consented to a telehealth visit: yes Telemedicine Visit Details Type of service: Telephone visit Start Time: 9:31 AM End Time: 10:47 AM Originating Location (pt. Location): Home Distant Location (provider location): [facility] Mode of Communication: Telephone Chief Complaint: Biggest concern is dry mouth. Also wondering if any medications could be causing insomnia. Allergies/ADRs: Reviewed in [facility] Tobacco: reports that she has never smoked. She has never used smokeless tobacco. Alcohol: Less than 1 beverage / month Caffeine: was caffeine free, drinking diet caffeine pop, maybe 3 a day. Activity: works 4 days a week and on her feet 7h a day. PMH: Reviewed in [facility] Medication Adherence/Access: no issues reported Dry mouth: Teeth, tongue and mouth are very dry. Feels she can only get a few words out with gettingstuck. This is all day and makes it hard for her to work as she needs to socialize with customers ([facility]). Has had issues with this for a [...] not completed yet. She has tried melatonin dayj-ktl-uiwavzt but was not effective. She is not [...] for multivitamin due to difficulty of purchasing ublb-cgs-mlnikhs as many stores are out of stock. [...] declined a summary of these recommendations. Lashae Treivno PharmD Medication Therapy Management Pharmacist Pager#: [phone] documented in this encounter Plan of Treatment [...] documented as of this encounter Care Teams Awning Frame Maker Relationship Specialty Start Date End Date Noreen Hills PCP - General Nurse Practitioner 01/09/19 12/12/21 SEAN Haley MEDICAL INSURANCE CLERK [address] [facility] [place] [address] Noreen Hills Assigned PCP 06/16/18 SEAN Haley MEDICAL INSURANCE CLERK [address] [facility] [place] [phone] Kalyan Galvan Personal Advocate & 08/08/19 Liaison (PAL) Lashae Trevino Pharmacist Pharmacist 10/14/19 12/01/20 [facility] [address] [facility] [place] [phone] documented as of this encounter
--- OUTSIDE RECORDS SUMMARY | 2022-05-09 13:24 | XMS_ITS | Encounter Summary ---
:1965 Author Organization [place] Address [address] [place] [address] Care Team Providers Name Role Phone Noreen Hills APRN ROW BOSS Unavailable [phone] Noreen Hills APRN ROW BOSS Primary Care Provider [phone] Kalyan Galvan Unavailable Unavailable Lashae Trevino [facility] Unavailable [phone] Encounter Details Date Type Department Care [...] Depression Total Score: 9 08/09/2019 7:03 AM BRICKLAYER documented as of this encounter Care Teams Settlement Processor Relationship Specialty Start Date End Date Noreen Hills PCP - General Nurse Practitioner 01/09/19 12/12/21 SEAN Haley ROW BOSS [address] [place], [place] [address] Noreen Hills Assigned PCP 06/16/18 SEAN Haley ROW BOSS [address] [address] [place], [place] [address] Kalyan Galvan Personal Advocate & 08/08/19 Liaison (PAL) Lashae Trevino Pharmacist Pharmacist 10/14/19 12/01/20 [facility] [address] [place], [place] [address] documented as of this encounter
--- OUTSIDE RECORDS SUMMARY | 2022-05-09 13:24 | XMS_ITS | Encounter Summary ---
:1965 Author Organization [place] Address [address] [place] [address] Care Team Providers Name Role Phone Noreen Hills APRN MAINTAINER OPERATOR Unavailable [phone] Noreen Hills APRN MAINTAINER OPERATOR Primary Care Provider [phone] Kalyan Galvan Unavailable Unavailable Lashae Trevino [facility] Unavailable [phone] Reason for Visit Reason Onset Date Comments Chest Pain 11/06/2019 Encounter Details Date Type Department Care Team Description 11/06/[address] [facility] Noreen Hills istine, Chest Pain Pino ESTRADA MAINTAINER OPERATOR [address] [facility] [address] [facility] [address] [place] [address] [place] [address] [phone] Social History Tobacco Use Types Packs/Day Years [...] How often do you attend worship or amish Patient refused 08/08/2019 services? Do [...] remedies tried: took IBP AM Requested Pharmacy: [facility] [id number] [place] [address] Okay to leave a detailed message? Yes at Cell number on file: Telephone Information: documented in this encounter Plan of Treatment Not on filedocumented as of this encounter Visit Diagnoses Not on filedocumented in this encounter Additional Health Concerns Assessment Noted Time PHQ-9 Depression Total Score: 9 08/09/2019 7:03 AM GIS SCIENTIST documented as of this encounter Care Teams Solid Tire Tuber Machine Operator Relationship Specialty Start Date End Date Noreen Hills PCP - General Nurse Practitioner 01/09/19 12/12/21 SEAN Haley MAINTAINER OPERATOR [address] [facility] [place] [phone] Noreen Hills PCP 06/16/18 SEAN Haley MAINTAINER OPERATOR [address] [facility] [place] [address] Kalyan Galvan Personal Advocate & 08/08/19 Liaison (PAL) Lashae Trevino Pharmacist Pharmacist 10/14/19 12/01/20 [facility] [address] [facility] [place] [address] documented as of this encounter
--- OUTSIDE RECORDS SUMMARY | 2022-05-09 13:24 | XMS_ITS | Encounter Summary ---
:1965 Author Organization [place] Address [address] [place] [address] Care Team Providers Name Role Phone Noreen Hills APRN SAFETY REPRESENTATIVE Unavailable [phone] Noreen Hills APRN, CNP Primary Care Provider [phone] Kalyan Galvan Unavailable Unavailable Lashae Trevino [facility] Unavailable [phone] Reason for Visit Reason Onset Date Comments Follow Up 11/11/2019 er follow up Encounter Details Date Type Department Care Team Description 11/11/2019 Virtual Visit [facility] Kleber Lima MD Hyperlipidemia LDL goal <100 (Primary Dx ); Clinic [address] Type 2 diabetes mellitus wit h complication, without long-term current use of insulin (H) [address] [facility] [address] [place] [address] [address] [place] [address] (Work) [phone] Social History Tobacco Use Types Packs/Day Years [...] How often do you attend methodist or taoism Patient refused 08/08/2019 services? Do [...] as of this encounter Progress Notes Kleber Lmia MD - 11/11/2019 3:40 PM CDT Megan [...] would you like to be contacted at? [phone] How would you like to obtain your AVS? MyChart Subjective Megan Choi is a 54 year old female who presents via phone visit today for the following health issues: HPI ED/UC Followup: Facility: [facility] Emergency Department Date of visit: 11/06/2019 [...] disease YES- multiple family member have had [place] Tobacco use: no ?? Precipitating factors: Worse with exertion: YES- felt funny at work, chest started to hurt at work Worse with deep breaths : YES Related to food: no ?? Alleviating factors: Ibuprofen. Therapies Tried and outcome: ibuprofen Patient Active Problem List Diagnosis ??? Migraine headache ??? GERD (gastroesophageal reflux disease) ??? Family history of [place] (myocardial infarction) ??? Persistent insomnia ??? Type [...] ??? Cardiovascular Mother [place] age 72 ??? Diabetes Mother Type II ??? Hypertension Mother ??? Lipids Mother ??? Arthritis Mother OA ??? Kidney Disease Mother 70 ??? Cardiovascular Father [place] early 40s, subsequent bipass ??? Hypertension Father [...] ??? fluticasone (FLONASE) 50 MCG/ACT nasal spray [place] 1-2 sprays into both nostrils daily 16 [...] in mood or affect Objective Reported vitals: [facility] 10/30/2011 healthy, alert and no distress PSYCH: [...] Depression Total Score: 9 08/09/2019 7:03 AM PHOTOVOLTAIC INSTALLER documented as of this encounter Care Teams Call Taker Relationship Specialty Start Date End Date Noreen Hills PCP - General Nurse Practitioner 01/09/19 12/12/21 SEAN Haley SAFETY REPRESENTATIVE [address] [facility] [place] [address] Noreen Hills Assigned PCP 06/16/18 SEAN Haley SAFETY REPRESENTATIVE [address] [facility] [place] [address] Kalyan Galvan Personal Advocate & 08/08/19 Liaison (PAL) Lashae Trevino Pharmacist Pharmacist 10/14/19 12/01/20 [facility] [address] [place] [address] [place] [address] documented as of this encounter
--- OUTSIDE RECORDS SUMMARY | 2022-05-09 13:24 | XMS_ITS | Encounter Summary ---
:1965 Author Organization [place] Address [address] [place] [address] Care Team Providers Name Role Phone Noreen Hills APRN NUCLEAR PHYSICS TEACHER Unavailable [phone] Noreen Hills APRN NUCLEAR PHYSICS TEACHER Primary Care Provider [phone] Kalyan Galvan Unavailable Unavailable Lashae Trevino [facility] Unavailable [phone] Encounter Details Date Type Department Care [...] Depression Total Score: 9 08/09/2019 7:03 AM GLASS HANDLER documented as of this encounter Care Teams Presser First Relationship Specialty Start Date End Date Noreen Hills PCP - General Nurse Practitioner 01/09/19 12/12/21 SEAN Haley NUCLEAR PHYSICS TEACHER [address] [facility] [address] [place], [place] [address] Noreen Hills PCP 06/16/18 SEAN Haley NUCLEAR PHYSICS TEACHER [address] [facility] [place] [address] Kalyan Galvan Personal Advocate & 08/08/19 Liaison (PAL) Lashae Trevino Pharmacist Pharmacist 10/14/19 12/01/20 [facility] [address] [facility] [address] [address] [place], [place] [address] documented as of this encounter
--- OUTSIDE RECORDS SUMMARY | 2022-05-09 13:24 | XMS_ITS | Encounter Summary ---
:1965 Author Organization [place] Address [address] [place] [address] Care Team Providers Name Role Phone Noreen Hills APRN MANAGER EMPLOYMENT Unavailable [phone] Noreen Hills APRN MANAGER EMPLOYMENT Primary Care Provider [phone] Kalyan Galvan Unavailable Unavailable Lashae Trevino [facility] Unavailable [phone] Reason for Visit Reason Onset Date Comments Recheck Medication 10/28/2019 Cyclobenzaprine Encounter Details Date Type Department Care Team Description 10/28/2019 Virtual Visit [facility] Noreen Hills Dry mouth (Primary Dx); Clinic Pino Haley APRN Pain of left lower leg; [address] [facility] Migraine without status migrainosus, not intractable, unspecified migraine type; [address] [facility] Type 2 diabetes mellitus wit h complication, without long-term current use of insulin (H) [address] [facility] [place] [address] [place] [address] Social History Tobacco Use [...] organizations such as No 08/08/2019 temple groups, [employer], fraMech Mocha [employer] or athletic groups, or school groups? How [...] this encounter Progress Notes Noreen Hills, SEAN MANAGER EMPLOYMENT - 10/28/2019 11:30 AM CDT Megan Choi [...] would you like to be contacted at? [phone] How would you like to obtain your [...] called her but they were cut off. (G41.221) Migraine without status migrainosus, not intractable, unspecified [...] 6.1 (H) 0 - 5.6 % 01/13/2020 VERN[place] 9:27 AM CDT [facility] Comment: Normal <5.7% Prediabetes 5.7-6.4% ??Diab etes 6.5% or higher - adopted from ADA consensus guidelines. Specimen Anatomical Collection Method Collection Time Receive d Time (Source) Location / / Volume Laterality Blood specimen 01/13/2020 8:55 AM 020 8:56 (specimen) CDT AM CDT Noreen Hills APRN, CNP LAB - BLOOD ORDERABLES Performing Organization Address City/State/ZIP Code Phon e Number [address] [place] [address] documented in this encounter Visit Diagnoses Diagnosis [...] Depression Total Score: 9 08/09/2019 7:03 AM SHAKE SPLITTER documented as of this encounter Care Teams Thermostat Machine Tender Relationship Specialty Start Date End Date Noreen Hills PCP - General Nurse Practitioner 01/09/19 12/12/21 SEAN Haley CNP [address] [facility] [place] [address] Noreen Hills Assigned PCP 06/16/18 SEAN Haley CNP [address] [facility] [place] [address] Kalyan Galvan Personal Advocate & 08/08/19 Liaison (PAL) Lashae Trevino Pharmacist Pharmacist 10/14/19 12/01/20 [facility] [address] [facility] [place] [phone] documented as of this encounter
--- OUTSIDE RECORDS SUMMARY | 2022-05-09 13:24 | XMS_ITS | Encounter Summary ---
:1965 Author Organization [place] Address [address] [place] [address] Care Team Providers Name Role Phone Noreen Hills APRN FACILITIES LOCATOR Unavailable [phone] Noeren Hills APRN, CNP Primary Care Provider [phone] Kalyan Galvan Unavailable Unavailable Lashae Trevino [facility] Unavailable [phone] Reason for Visit Reason Comments Medication Refill Encounter Details Date Type Department Care Team Description 12/09/2019 Refill [facility] Noreen Hills, Medication Refill Pino ESTRADA FACILITIES LOCATOR 3305 [facility] 3305 [facility] [address] [place] [address] [place] [address] [phone] Social History Tobacco Use Types Packs/Day Years [...] How often do you attend mosque or sabianist Patient refused 08/08/2019 services? Do [...] Depression Total Score: 9 08/09/2019 7:03 AM MECHANICAL AND AUTO BODY CAR CHECKER documented as of this encounter Care Teams Supervisor Wheel Shop Relationship Specialty Start Date End Date Noreen Hills PCP - General Nurse Practitioner 01/09/19 12/12/21 SEAN Haley FACILITIES LOCATOR 3305 [facility] [place] [address] Noreen Hills Assigned PCP 06/16/18 SEAN Haley FACILITIES LOCATOR 3305 [facility] [place] [id number] Kalyan Galvan Personal Advocate & 08/08/19 Liaison (PAL) Lashae Trevino Pharmacist Pharmacist 10/14/19 12/01/20 Kiran [facility] 6370 [facility] [place] [address] documented as of this encounter
--- OUTSIDE RECORDS SUMMARY | 2022-05-09 13:24 | XMS_ITS | Encounter Summary ---
:1965 Author Organization [place] Address [address] [place] [address] Care Team Providers Name Role Phone Noreen Hills APRN SALES PLANNING ANALYST Unavailable [phone] Noreen Hills APRN, CNP Primary Care Provider [phone] Kalyan Galvan Unavailable Unavailable Encounter Details Date [...] How often do you attend mu-ism or anglican Patient refused 08/08/2019 services? Do [...] Depression Total Score: 9 08/09/2019 7:03 AM DRUG REGULATORY AFFAIRS SPECIALIST documented as of this encounter Care Teams Bilingual Manager Relationship Specialty Start Date End Date Noreen Hills PCP - General Nurse Practitioner 01/09/19 12/12/21 SEAN Haley SALES PLANNING ANALYST 9685 [facility] [place] [address] Noreen Hills Assigned PCP 06/16/18 SEAN Haley SALES PLANNING ANALYST 0305 [facility] [place] [address] Kalyan Galvan Personal Advocate & 08/08/19 Liaison (PAL) documented as of this encounter
--- OUTSIDE RECORDS SUMMARY | 2022-05-09 13:24 | XMS_ITS | Encounter Summary ---
:1965 Author Organization [place] Address [address] [place] [address] Care Team Providers Name Role Phone Noreen Hills APRN PROCESS WORKER Unavailable [phone] Noreen Hills APRN PROCESS WORKER Primary Care Provider [phone] Kalyan Galvan Unavailable Unavailable Lashae Trevino [facility] Unavailable [phone] Encounter Details Date Type Department Care [...] How often do you attend hoahaoism or religion Patient refused 08/08/2019 services? Do [...] Depression Total Score: 9 08/09/2019 7:03 AM LAW OFFICE MANAGER documented as of this encounter Care Teams Strike Operations Officer Relationship Specialty Start Date End Date Noreen Hills PCP - General Nurse Practitioner 01/09/19 12/12/21 SEAN Haley PROCESS WORKER [address] [facility] [address] [place], [place] [address] Noreen Hills PCP 06/16/18 SEAN Haley PROCESS WORKER [address] [facility] [place] [address] Kalyan Galvan Personal Advocate & 08/08/19 Liaison (PAL) Lashae Trevino Pharmacist Pharmacist 10/14/19 12/01/[facility] [address] [facility] [address] [place], [place] [address] documented as of this encounter
--- OUTSIDE RECORDS SUMMARY | 2022-05-09 13:24 | XMS_ITS | Encounter Summary ---
:1965 Author Organization [place] Address [address] [place] [address] Care Team Providers Name Role Phone Noreen Hills APRN DIRECTOR STATE PHARMACY Unavailable [phone] Noreen Hills APRN DIRECTOR STATE PHARMACY Primary Care Provider [phone] Kalyan Galvan Unavailable Unavailable Lashae Trevino [facility] Unavailable [phone] Encounter Details Date Type Department Care [...] often do you attend jehovah's witness or cheondoism Patient refused 08/08/2019 services? Do [...] Depression Total Score: 9 08/09/2019 7:03 AM RECREATIONAL LEADER documented as of this encounter Care Teams Core Extruder Relationship Specialty Start Date End Date Noreen Hills PCP - General Nurse Practitioner 01/09/19 12/12/21 SEAN Haley DIRECTOR STATE PHARMACY [address] [facility] [address] [place], [place] [address] Noreen Hills PCP 06/16/18 SEAN Haley DIRECTOR STATE PHARMACY [address] [place] [place] [address] Kalyan Galvan Personal Advocate & 08/08/19 Liaison (PAL) Lashae Trevino Pharmacist Pharmacist 10/14/19 [facility]/01/[facility] [address] [facility] [address] [place], [place] [address] documented as of this encounter
--- OUTSIDE RECORDS SUMMARY | 2022-05-09 13:24 | XMS_ITS | Encounter Summary ---
:1965 Author Organization [place] Address [address] [place] [address] Care Team Providers Name Role Phone Noreen Hills APRN CLINICAL REGISTERED NURSE Unavailable [phone] Noreen Hills APRN CLINICAL REGISTERED NURSE Primary Care Provider [phone] Kalyan Galvan Unavailable Unavailable Encounter Details Date Type Department Care Team Description 10/03/2019 Telephone [facility] Lashae Trevino Eagan [facility] [address] [place] [address] [address] [place] [address] [phone] Social History Tobacco Use Types Packs/Day Years [...] How often do you attend yarsanism or buddhism Patient refused 08/08/2019 services? Do [...] Miscellaneous Notes Telephone Encounter - Lashae Trevino, [facility] - 10/06/2019 3:17 PM CDT Received call back earlier today, pt request call back after 3pm today. No answer, LVM to call clinic back to schedule MTM visit, referral per PCP. Lashae Trevino, PharmD Medication Therapy Management Pharmacist Pager#: [phone] Telephone Encounter - Edel Mosqueda CMA - 10/03/2019 8:31 AM CDT LVM to call back for consent. Edel Mosqueda MA documented in this encounter Plan of Treatment Not on filedocumented as of this encounter Visit Diagnoses Not on filedocumented in this encounter Additional Health Concerns Assessment Noted Time PHQ-9 Depression Total Score: 9 08/09/2019 7:03 AM UNEMPLOYMENT EXAMINER documented as of this encounter Care Teams Telegraph Operator Relationship Specialty Start Date End Date Noreen Hills PCP - General Nurse Practitioner 01/09/19 12/12/21 SEAN Haley CLINICAL REGISTERED NURSE 3305 [facility] [place] [address] Noreen Hills Assigned PCP 06/16/18 SEAN Haley CLINICAL REGISTERED NURSE 3305 [facility] [place] [address] Kalyan Galvan Personal Advocate & 08/08/19 Liaison (PAL) documented as of this encounter
--- OUTSIDE RECORDS SUMMARY | 2022-05-09 13:25 | XMS_ITS | Encounter Summary ---
:1965 Author Organization [place] Address [address] [place] [address] Care Team Providers Name Role Phone Noreen Hlils APRN, CNP Unavailable [phone] Noreen Hills APRN, CNP Primary Care Provider [phone] Encounter Details Date Type Department Care Team [...] How often do you attend christianity or jewish Patient refused 08/08/2019 services? Do [...] documented as of this encounter Care Teams Fermentation Manager Relationship Specialty Start Date End Date Noreen Hills APRN WATCH AND CLOCK REPAIR CLERK PCP - General Nurse Practitioner 01/09/19 12/12/[address] [place] [address] [place] [address] Noreen Hills APRN WATCH AND CLOCK REPAIR CLERK Assigned PCP 06/16/[address] [place] [address] [place] [address] documented as of this encounter
--- OUTSIDE RECORDS SUMMARY | 2022-05-09 13:25 | XMS_ITS | Encounter Summary ---
:1965 Author Organization [place] Address [address] [place] [address] Care Team Providers Name Role Phone Noreen Hills APRN, CNP Unavailable [phone] Noreen Hills APRN, CNP Primary Care Provider Kalyan Galvan Unavailable Unavailable Lashae Trevino [facility] Unavailable [phone] Eduardo Sharma MD Unavailable Rios Monteiro MD Unavailable Marcelo Artis PA-C Unavailable [phone] Rodrigo Man PA-C Unavailable [phone] Reason for Visit Reason Onset Date Comments Medication Refill 04/25/2019 metFORMIN (GLUCOPHAG E) 500 MG tablet Encounter Details Date Type Department Care Team Description 04/25/2019 Refill [facility] Noreen Hills Medication Refill Clinic Pino Haley APRN CNP (metFORMIN (GLUCOPHAGE) 3305 [place] 3305 [facility] 500 M G tablet) [facility] [address] [place] [address] [place] [address] [phone] Social History Tobacco Use Types Packs/Day Years [...] How often do you attend denominational or quaker Patient refused 08/08/2019 services? Do [...] not current: LDL, creatinine Due for appointment ITY TENDER CARDING Telephone Encounter - Lara Villalba - 04/25/2019 [...] & Orders section of the refill encounter. ITY TENDER CARDING documented in this encounter Plan of Treatment [...] as of this encounter Care Teams Accounting Assistant Relationship Specialty Start Date End Date Noreen Hills PCP - General Nurse Practitioner 01/09/19 12/12/21 SEAN Haley MICA MACHINE OPERATOR 3305 [facility] [place] [address] Noreen Hills Assigned PCP 06/16/18 SEAN Haley MICA MACHINE OPERATOR 3305 [facility] [place] [address] Kalyan Galvan Personal Advocate & 08/08/19 Liaison (PAL) Lashae Trevino Pharmacist Pharmacist 10/14/19 12/01/20 [facility] 1440 [facility] [place] [address] Eduardo Sharma MD Assigned Sleep Provider 04/02/20 05/07/21 [address] ROS[address] [place] [id number] Rios Monteiro MD Assigned Musculoskeletal 04/02/20 08/24/20 [address] iconDial Provider ROSHAN 300 [place] [address] Marcelo Artis Assigned Musculoskeletal 08/25/20 08/20/21 MIKAYLA Nuno Provider [address] [facility] [place] [address] [place] [address] Rodrigo Man Assigned Surgical 08/25/2011/27 MIKAYLA Lacy Provider 6545 [facility] 450 [place], [place] [address] documented as of this encounter
--- OUTSIDE RECORDS SUMMARY | 2022-05-09 13:25 | XMS_ITS | Encounter Summary ---
:1965 Author Organization [place] Address [address] [place] [address] Care Team Providers Name Role Phone Noreen Hills APRN INSTRUCTOR PHYSICAL Unavailable [phone] Noreen Hills APRN, CNP Primary Care Provider [phone] Kalyan Galvan Unavailable Unavailable Encounter Details Date [...] How often do you attend alevism or catholic Patient refused 08/08/2019 services? Do [...] Depression Total Score: 9 08/09/2019 7:03 AM MIXER MACHINE FEEDER documented as of this encounter Care Teams Behavioral Health Technician Relationship Specialty Start Date End Date Noreen Hills PCP - General Nurse Practitioner 01/09/19 12/12/21 SEAN Haley INSTRUCTOR PHYSICAL 2049 [facility] [place] [address] Noreen Hills Assigned PCP 06/16/18 SEAN Haley INSTRUCTOR PHYSICAL 9655 [facility] [place] [address] Kalyan Galvan Personal Advocate & 08/08/19 Liaison (PAL) documented as of this encounter
--- OUTSIDE RECORDS SUMMARY | 2022-05-09 13:25 | XMS_ITS | Encounter Summary ---
:1965 Author Organization [place] Address [address] [place] [address] Care Team Providers Name Role Phone Noreen Hills APRN SUPERVISOR PIG MACHINE Unavailable [phone] Noreen Hills APRN SUPERVISOR PIG MACHINE Primary Care Provider [phone] Reason for Visit Reason Onset Date Comments Refill Request 03/05/2019 omeprazole (PRILOSEC ) [address] capsule Encounter Details Date Type Department Care Team Description 03/05/2019 [facility] Vanda Guerrero R efill Request Clinic Pino SALDANA (omeprazole (PRILOSEC) [address] [place] [address] [facility] [address] capsule) [facility] [address] [place] [address] [place] [address] [phone] Social History Tobacco Use Types Packs/Day Years [...] How often do you attend yazidi or taoist Patient refused 08/08/2019 services? Do [...] as of this encounter Care Teams Hospital Receiving Clerk Relationship Specialty Start Date End Date Noreen Hills APRN SUPERVISOR PIG MACHINE PCP - General Nurse Practitioner 01/09/19 12/12/[address] [place] [address] [place] [address] Noreen Hills APRN SUPERVISOR PIG MACHINE Assigned PCP 06/16/[address] [place] [address] [place] [address] documented as of this encounter
--- OUTSIDE RECORDS SUMMARY | 2022-05-09 13:25 | XMS_ITS | Encounter Summary ---
:1965 Author Organization [facility] Address [address] [place] [address] Care Team Providers Name Role Phone Noreen Hills APRN, CNP Unavailable [phone] Noreen Hills APRN, CNP Primary Care Provider [phone] Reason for Referral (Routine) - Closed Specialty Diagnoses / Procedures Referred By Contact Refer red To Contact Diagnoses Left foot pain Right foot pain Moran's neuroma of both feet Pes cavus Peroneal tendinitis of both lower legs Agatha Null DPM, Procedures TRIAMCINOLONE ACET INJ NOS Podiatry/Foot and Ankle Surgery [address] [place] [address] Referral ID Status Reason Start Date Expiration Date Visits Requ ested Visits Authorized [id number] Closed 01/21/2019 01/21/2020 1 1 A Physical Therapy (Routine) - Closed Specialty Diagnoses / Procedures Referred By Contact Refer red To Contact Diagnoses Left foot pain Right foot pain Moran's neuroma of both feet Pes cavus Peroneal tendinitis of both lower legs Agatha Null DPM, Podiatry/Foot and Ankle Surgery [address] [place] [address] Referral ID Status Reason Start Date Expiration Date Visits Requ ested Visits Authorized [id number] Closed 01/21/2019 06/10/2019 30 30 iagnostic Imaging XR (Routine) - Closed Specialty Diagnoses / Procedures Referred By Contact Refer red To Contact Diagnoses Left foot pain Agatha Null DPM, Procedures XR Foot Left G/E 3 Views Podiatry/Foot and Ankle Surgery [id number] [place] [address] [address] [place] [address] Referral ID Status Reason Start Date Expiration Date Visits Requ ested Visits Authorized [id number] Closed 01/21/2019 01/21/2020 1 1 Reason for Visit Reason Comments Pain Encounter Details Date Type Department Care Team Description 01/21/2019 Office Visit [facility] Agatha Null, Left fo ot pain (Primary Dx); Clinic [place] DPNita, Podiatry/Foot Right foot pain; [address] [facility] and Ankle Surgery Moran's neuroma of both feet; [place] [address] Seda capellan vutoan; [address] ROSHAN 300 Peroneal tendinitis of both lower legs; [phone] [place], [place] Type 2 diabet es mellitus without complication, without long-term current use of insulin (H) [address] (Wo rk) Social History Tobacco Use Types Packs/Day Years Used Date Smoking Tobacco: Never Smokeless Tobacco: Never Tobacco Cessation: Counseling Given: No Alcohol Use [...] organizations such as No 08/08/2019 anabaptist groups, Bharat Matrimonys, fraservtag or athletic groups, or school groups? How [...] 10:30 AM CDT Thank you for choosing [facility]! [facility] SCHEDULE SUNDAY AM - [place] SUNDAY - [place] [facility] [facility] [address] [place] [address] [place] [address] / FX [phone] / FX [phone] SUNDAY - [place] SUNDAY AM - [facility] [address] Stephanie [address] [place] [address] [place] [address] / FX [phone] SUNDAY PM - [place] SCHEDULE SURGERY: [phone] [place] [address] BILLING QUESTIONS: [phone] [place] [address] AFTER HOURS: [phone] / FX [phone] APPOINTMENTS: [phone] Consumer [place] Line (CPL) [phone] PHYSICAL THERAPY REFERRAL [facility] ([facility]) [phone] [facility] Moran's neuroma is an enlargement [...] shoe and massaging your foot DIAGNOSIS: Your forest economist will ask many questions about your signs [...] of you. Do 2 sets of 10. cinema operator the same position as above. While keeping [...] and getting you back on your feet. [facility] has a Comprehensive Weight Management Program. This program includes counseling, education,non-surgical and surgical approaches to weight loss. If you are interested in learning more either talk to you primary care provider or call [phone]. documented in this encounter Progress Notes Agatha Null DPM, Podiatry/Foot and Ankle Surgery - 01/21/2019 [...] Surgeon: Agatha Null, DPM, Pod; Location: OR MEDICATIONS: Current Outpatient [...] 3 ??? fluticasone (FLONASE) 50 MCG/ACT spray, [place] 1-2 sprays into both nostrils daily, Disp: [...] INCREASE, Disp: 180 capsule, Rfl: 0 ??? FiTeqTOUCH ULTRA test strip, USE TO TEST BLOOD [...] file Gets together: Not on file Attends synagogue service: Not on file Active member of [...] insulin (H) PLAN: [facility]. Reviewed and discussed causes of tendonitis. [...] done for right 3rd intermetatarsal nerve. Agatha Null DPM, Podiatry/Foot and Ankle Surgery [...] as of this encounter Care Teams Contract Engineer Relationship Specialty Start Date End Date Noreen Hills APRN ROCK CRUSHER PCP - General Nurse Practitioner 01/09/19 12/12/[address] [place] [address] [place] [address] Noreen Hills APRN ROCK CRUSHER Assigned PCP 06/16/18 3305 [facility] [place] [address] documented as of this encounter
--- OUTSIDE RECORDS SUMMARY | 2022-05-09 13:25 | XMS_ITS | Encounter Summary ---
:1965 Author Organization [place] Address [address] [place] [address] Care Team Providers Name Role Phone Noreen Hills APRN FIREPROOF DOOR ASSEMBLER Unavailable [phone] Noreen Hills APRN, CNP Primary Care Provider [phone] Kalyan Galvan Unavailable Unavailable Reason for Visit Reason Onset Date Comments Referral 10/02/2019 MTM Encounter Details Date Type Department Care Team Description 10/02/2019 Telephone [facility] Noreen Hills, Referral (MTM) Pino ESTRADA FIREPROOF DOOR ASSEMBLER 3305 [facility] 3305 [facility] [address] [place] [address] [place] [address] [phone] Social History Tobacco Use Types Packs/Day Years [...] How often do you attend confucianism or mu-ism Patient refused 08/08/2019 services? Do [...] 10/02/2019 1:46 PM CDT MTM referral from: [facility] visit (referral by provider) MTM referral outreach attempt #2 on October 02, 2019 at 1:47 PM Outcome: Patient not reachable after several attempts, will route to [facility] Pharmacist/Provider as an FYI. Thank you for the referral. See LISSA Pickens Linen Clerk documented in this encounter Plan of Treatment Not on filedocumented as of this encounter Visit Diagnoses Not on filedocumented in this encounter Additional Health Concerns Assessment Noted Time PHQ-9 Depression Total Score: 9 08/09/2019 7:03 AM CLOTH DRIER documented as of this encounter Care Teams Side Laster Staple Relationship Specialty Start Date End Date Noreen Hills PCP - General Nurse Practitioner 01/09/19 12/12/21 SEAN Haley FIREPROOF DOOR ASSEMBLER 3305 [facility] [place] [address] Noreen Hills Assigned PCP 06/16/18 SEAN Haley FIREPROOF DOOR ASSEMBLER 3305 [facility] [place] [address] Kalyan Galvan Personal Advocate & 08/08/19 Liaison (PAL) documented as of this encounter
--- OUTSIDE RECORDS SUMMARY | 2022-05-09 13:25 | XMS_ITS | Encounter Summary ---
:1965 Author Organization [place] Address [address] [place] [address] Care Team Providers Name Role Phone Noreen Hills APRN, CNP Unavailable [phone] Noreen Hills APRN, CNP Primary Care Provider Kalyan Galvan Unavailable Unavailable Reason for Referral Consultation (Routine) - Closed Specialty Diagnoses / Procedures Referred By Contact Refer red To Contact Orthopedics and Sports Diagnoses Pain of left lower leg Noreen Hills [facility] SEAN Haley CNP ORTHOPEDIC CLINIC [address] [place] [address]?? [place] [address] [facility] [place] [address] [address] [place] [address] Phone: Fax: Referral ID Status Reason Start Date Expiration Date Visits Requ ested Visits Authorized [id number] Closed 09/30/2019 09/29/2020 1 1 ed Therapy Management (Routine) - Closed Specialty Diagnoses / Procedures Referred By Contact Refer red To Contact Pharmacist Diagnoses Dry mouth Noreen Hills APRN [address] [place] [place] [address] Referral ID Status Reason Start Date Expiration Date Visits Requ ested Visits Authorized [id number] Closed 09/30/2019 09/29/2020 1 1 Reason for Visit Reason Onset Date Comments Weight Problem 09/30/2019 Encounter Details Date Type Department Care Team Description 09/30/2019 Virtual Visit [facility] Noreen Hills Dry mouth (Primary Dx); Clinic Pino Haley APRN Pain of left lower leg; [address] [place] RIDES SUPERVISOR Taste disorder; [address] [facility] Leg swelling; [address] [facility] Migraine without status migrainosus, not intractable, unspecified migraine type; [place] [address] [place] [address] Morbid obesity (H) [phone] Social History Tobacco Use Types Packs/Day Years [...] this encounter Progress Notes Noreen Hills APRN RIDES SUPERVISOR - 09/30/2019 9:05 AM CDT Megan Choi [...] No red flags. - Orthopedic & Spine Investment Counselor Referral; Future 3. Taste disorder Everything tastes [...] Pain of left lower leg Expected: 09/30/2019 Investment Counselor Referral (Approxim ate), Expires: 2020 documented as [...] Depression Total Score: 9 08/09/2019 7:03 AM ALBACORE FISHING BOAT CREWMAN documented as of this encounter Care Teams Electronics System Mechanic Relationship Specialty Start Date End Date Noreen Hills PCP - General Nurse Practitioner 01/09/19 12/12/21 SEAN Haley CNP [address] [facility] [place] [address] Noreen Hills Assigned PCP 06/16/18 SEAN Haley CNP [address] [facility] [place] [address] Kalyan Galvan Personal Advocate & 08/08/19 Liaison (PAL) documented as of this encounter
--- OUTSIDE RECORDS SUMMARY | 2022-05-09 13:25 | XMS_ITS | Encounter Summary ---
:1965 Author Organization [facility] Address [address] [place] [address] Care Team Providers Name Role Phone Noreen Hills APRN, CNP Unavailable [phone] Noreen Hills APRN, CNP Primary Care Provider [phone] Reason for Visit Reason Comments Medication Refill topiramide Encounter Details Date Type Department Care Team Description 08/04/2019 Refill [facility] Noreen Hills Medication Refill Clinic [facility] Haley APRN CNP (topiramide) [address] [facility] [address] [place] [address] [place] [id number] [phone] Social History Tobacco Use Types Packs/Day Years [...] How often do you attend restorationism or buddhist Patient refused 08/08/2019 services? Do [...] in past 26 months Janice Jaeger RN ORCHARDIST Telephone Encounter - Dania Chappell - 08/04/2019 [...] 90 days) Aug 08, 2019 9:15 AM NUT ORCHARDIST (Arrive by 8:50 AM) Adult Preventative Visit with Noreen Hills APRN [facility] [address] [place] [address] [address] [facility] [address] ORCHARDIST documented in this encounter Plan of Treatment Not on filedocumented as of this encounter Visit Diagnoses Diagnosis Migraine without status migrainosus, not intractable, unspecified migraine type Morbid obesity (H) Morbid obesity documented in this encounter Additional Health Concerns Assessment Noted Time PHQ-9 Depression Total Score: 10 01/02/2019 10:18 AM C DT documented as of this encounter Care Teams Burrito Maker Relationship Specialty Start Date End Date Noreen Hills APRN PRECISION LENS GRINDER APPRENTICE PCP - General Nurse Practitioner 01/09/19 12/12/[address] [place] [address] [place] [id number] Noreen Hills APRN PRECISION LENS GRINDER APPRENTICE Assigned PCP 06/16/[address] [place] [address] [place] [phone] documented as of this encounter
--- OUTSIDE RECORDS SUMMARY | 2022-05-09 13:25 | XMS_ITS | Encounter Summary ---
:1965 Author Organization [facility] Address [address] [place] [address] Care Team Providers Name Role Phone Noreen Hills APRN RIGGING UP WORKER Unavailable [phone] Noreen Hills APRN RIGGING UP WORKER Primary Care Provider [phone] Reason for Visit Reason Onset Date Comments Refill Request 05/22/2019 Encounter Details Date Type Department Care Team Description 05/22/2019 MyC Refill [facility] Noreen Hills Ref ill Request [place] Haley APRN RIGGING UP WORKER [address] [facility] [address] [place] [address] [address] [place] [address] [place] [id number] [phone] Social History Tobacco Use Types Packs/Day Years [...] How often do you attend confucianist or sabianism Patient refused 08/08/2019 services? Do [...] Shefali Root MA - 06/02/2019 9:03 AM APPLICATION INTEGRATION ENGINEER Patient has appointment on 08/08/2019 Shefali Root MA ICATION INTEGRATION ENGINEER Telephone Encounter - Christi Panda MA - 05/30/2019 9:09 AM CST My Chart message sent to schedule. Christi Panda CMA ICATION INTEGRATION ENGINEER Telephone Encounter - Lainey Wells - 05/23/2019 12:22 PM CST 1st attempt l/m. Lainey Wells on 05/23/2019 at 12:22 PM ICATION INTEGRATION ENGINEER Telephone Encounter - Noreen Hills APRN CNP - 05/23/2019 11:28 AM APPLICATION INTEGRATION ENGINEER I will fill Ambien. I prefer her not being on Sudafed. Can worsen anxiety and blood pressure\ Would she be willing to switch to regular loratadine? Due for physical in Jul. Please assist with scheduling. ICATION INTEGRATION ENGINEER Telephone Encounter - Liya Gonzalez RN - 05/23/2019 9:16 AM CST Loratadine prescription failed transmission Ambien has 2 weeks left on script Thea OzunaMARBLE SETTER HELPER [facility] [phone] ICATION INTEGRATION ENGINEER documented in this encounter Plan of Treatment Not on filedocumented as of this encounter Visit Diagnoses Diagnosis Persistent insomnia Persistent disorder of initiating or martínez ntaining sleep Chronic seasonal allergic rhinitis documented in this encounter Additional Health Concerns Assessment Noted Time PHQ-9 Depression Total Score: 10 01/02/2019 10:18 AM C DT documented as of this encounter Care Teams Record Pressman Relationship Specialty Start Date End Date Noreen Hills APRN CNP PCP - General Nurse Practitioner 01/09/19 12/12/[address] [place] [address] [place] [address] Noreen Hills APRN CNP Assigned PCP 06/16/[address] [place] [address] [place] [id number] documented as of this encounter
--- OUTSIDE RECORDS SUMMARY | 2022-05-09 13:25 | XMS_ITS | Encounter Summary ---
:1965 Author Organization [facility] Address [address] [place] [address] Care Team Providers Name Role Phone Noreen Hills APRN, CNP Unavailable [phone] Noreen Hills APRN, CNP Primary Care Provider [phone] Reason for Visit Diagnostic Imaging XR (Routine) - Closed Specialty Diagnoses / Procedures Referred By Contact Refer red To Contact Diagnoses Left foot pain Agatha Null, DPM, Procedures XR Foot Left G/E 3 Views Podiatry/Foot and Ankle Surgery [address] [place] [address] Referral ID Status Reason Start Date Expiration Date Visits Requ ested Visits Authorized [id number] Closed 01/21/2019 01/21/2020 1 1 Encounter Details Date Type Department Care Team Description 01/21/2019 [facility] Corinne DPM, Podiatry/Foot [address] [facility] and [facility]le [place] [address] [address] [address] [facility] [address] [place] [address] Social History Tobacco Use Types [...] often do you attend jehovah's witness or tenriism Patient refused 08/08/2019 services? Do you belong to any clubs or organizations such as No 08/08/2019 jehovah's witness groups, Chemo Beaniess, fraSumoing or athletic groups, or school groups? How [...] HISTORY: ??Left foot pain. Procedure Note Thompson aBez MD - 01/21/2019Formatt ing of this note [...] as of this encounter Care Teams Survey Superintendent Relationship Specialty Start Date End Date Noreen Hills APRN DRAWING FRAME TENDER PCP - General Nurse Practitioner 01/09/19 12/12/[address] [place] [address] [place] [id number] Noreen Hills APRN DRAWING FRAME TENDER Assigned PCP 06/16/[address] [place] [address] [place] [phone] documented as of this encounter
--- OUTSIDE RECORDS SUMMARY | 2022-05-09 13:25 | XMS_ITS | Encounter Summary ---
:1965 Author Organization [facility] Address [address] [place] [address] Care Team Providers Name Role Phone Noreen Hills APRN, CNP Unavailable [phone] Noreen Hills APRN, CNP Primary Care Provider [phone] Reason for Visit [facility] (Routine) - Closed Specialty Diagnoses / Procedures Referred By Contact Refer red To Contact Diagnoses Left foot pain Right foot pain Coello's neuroma of both feet Pes cavus Peroneal tendinitis of both lower legs Agatha Null, DPM, Podiatry/Foot and Ankle Surgery [address] [place] [address] Referral ID Status Reason Start Date Expiration Date Visits Requ ested Visits Authorized [id number] Closed 01/21/2019 06/10/2019 30 30 Encounter Details Date Type Department Care Team Description 01/28/2019 Therapy Visit [facility] Marcelo Trejo, Left foot pain; Rehabilitation Services PT Right foot pain; [place] [address] Coello's neuroma of both feet; [address] [place], [place] Pes cavus; [address] [address] Peroneal tendinitis of both lower legs; [address] Chronic right shoulder pain [place] [address] (Work) [phone] Social History Tobacco Use Types Packs/Day Years [...] How often do you attend restoration or holiness Patient refused 08/08/2019 services? Do [...] Trejo, PT - 01/28/2019 10:00 AM CDT [facility] Initial Evaluation Subjective: The history is provided by the patient. No english language learner tutor was used. [...] gradually worsening. Special tests: X-ray. 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 Restrictions include: Working in normal job without [...] Sheet for this information) Short term and termite exterminator goals: (See Goal Flow Sheet for [...] Procedure Name Priority Date/Time Associated Diagnosis Comme [facility] THERAPEUTIC Routine 01/28/2019 10:42 AM Left [...] documented as of this encounter Care Teams Quality Cloth Tester Relationship Specialty Start Date End Date Noreen Hills APRN MACHINERY CLEANER PCP - General Nurse Practitioner 01/09/19 12/12/[address] [place] [address] [place] [id number] Noreen Hills APRN MACHINERY CLEANER Assigned PCP 06/16/[address] [place] [address] [place] [address] documented as of this encounter
--- OUTSIDE RECORDS SUMMARY | 2022-05-09 13:25 | XMS_ITS | Encounter Summary ---
:1965 Author Organization [facility] Address [address] [place] [address] Care Team Providers Name Role Phone Noreen Hills APRN, CNP Unavailable [phone] Noreen Hills APRN, CNP Primary Care Provider [phone] Reason for Visit Reason Comments Medication Refill Encounter Details Date Type Department Care Team Description 05/06/2019 Refill [facility] Aleyda Guerrero MD Medication Refill [facility] [address] [facility] 3305 [facility] [place] [address] [address] [place] [address] [phone] Social History Tobacco Use Types Packs/Day Years [...] How often do you attend yarsanism or shinto Patient refused 08/08/2019 services? Do [...] Health refill protocol or controlled substance ING OPERATOR documented in this encounter Plan of Treatment Not on filedocumented as of this encounter Visit Diagnoses Diagnosis Chronic seasonal allergic rhinitis documented in this encounter Additional Health Concerns Assessment Noted Time PHQ-9 Depression Total Score: 10 01/02/2019 10:18 AM C DT documented as of this encounter Care Teams Duck Farmer Relationship Specialty Start Date End Date Noreen Hills APRN SEWAGE DISPOSAL WORKER PCP - General Nurse Practitioner 01/09/19 12/12/[address] [place] [address] [place] [address] Noreen Hills APRN SEWAGE DISPOSAL WORKER Assigned PCP 06/16/[address] [place] [address] [place] [id number] documented as of this encounter
--- OUTSIDE RECORDS SUMMARY | 2022-05-09 13:25 | XMS_ITS | Encounter Summary ---
:1965 Author Organization [facility] Address [address] [place] [address] Care Team Providers Name Role Phone Noreen Hills APRN, CNP Unavailable [phone] Noreen Hills APRN, CNP Primary Care Provider Reason for Visit [facility] (Routine) - Closed Specialty Diagnoses / Procedures Referred By Contact Refer red To Contact Diagnoses Left foot pain Right foot pain Coello's neuroma of both feet Pes cavus Peroneal tendinitis of both lower legs Agatha Null, DPM, Podiatry/Foot and Ankle Surgery [address] [place] [address] Referral ID Status Reason Start Date Expiration Date Visits Requ ested Visits Authorized [id number] Closed 01/21/2019 06/10/2019 30 30 Encounter Details Date Type Department Care Team Description 02/04/[address] [facility] Marcelo Trejo, Left foot pain; Rehabilitation Services PT Right foot pain; [place] [address] Peroneal tendinitis of both lower legs; [address] [place], [place] Chronic ri ght shoulder pain [facility] [address] [address] [address] [place] [address] (Work) [phone] Social History Tobacco Use Types Packs/Day Years [...] How often do you attend yazidi or oriental orthodox Patient refused 08/08/2019 services? [...] documented as of this encounter Care Teams Dairy Inspector Relationship Specialty Start Date End Date Noreen Hills APRN BUZZLE BUFFER PCP - General Nurse Practitioner 01/09/19 12/12/[address] [place] [address] [place] [phone] Noreen Hills APRN BUZZLE BUFFER Assigned PCP 06/16/[address] [place] [address] [place] [address] documented as of this encounter
--- OUTSIDE RECORDS SUMMARY | 2022-05-09 13:25 | XMS_ITS | Encounter Summary ---
:1965 Author Organization [facility] Address [address] [place] [address] Care Team Providers Name Role Phone Noreen Hills APRN, CNP Unavailable [phone] Noreen Hills APRN PUMP STATION OPERATOR Primary Care Provider [phone] Reason for Visit Reason Comments Medication Refill resend - [facility] RELIEF- D 10-240 MG 24 hr tablet Encounter Details Date Type Department Care Team Description 05/18/2019 Refill [facility] Vanda Guerrero M edication Refill Clinic [facility] SALDANA (resend - [facility] [address] [place] [address] [facility] RELIE F-D 10-240 MG [address] [facility] [address] hr tablet) [address] [place] [address] [place] [address] [phone] Social History Tobacco Use Types Packs/Day Years [...] resend. 05/09/19 rx failed to [facility] GRAPHER Telephone Encounter - Wilda Patterson - 05/18/2019 2:52 PM CST [facility]-D 10-240 MG 24 hr tablet Last Written Prescription Date: 04/29/19 Last Fill Quantity: 90 # refills: 1 Last office visit: 01/02/2019 with prescribing provider: Future Office Visit: GRAPHER documented in this encounter Plan of Treatment Not on filedocumented as of this encounter Visit Diagnoses Diagnosis Chronic seasonal allergic rhinitis documented in this encounter Additional Health Concerns Assessment Noted Time PHQ-9 Depression Total Score: 10 01/02/2019 10:18 AM C DT documented as of this encounter Care Teams Answering Service Telephone Operator Relationship Specialty Start Date End Date Noreen Hills APRN PUMP STATION OPERATOR PCP - General Nurse Practitioner 01/09/19 12/12/[address] [place] [address] [place] [address] Nroeen Hills APRN PUMP STATION OPERATOR Assigned PCP 06/16/[address] [place] [address] [place] [address] documented as of this encounter
--- OUTSIDE RECORDS SUMMARY | 2022-05-09 13:25 | XMS_ITS | Encounter Summary ---
:1965 Author Organization [place] Address [address] [facility] [place] [address] Care Team Providers Name Role Phone Noreen Hills APRN, CNP Unavailable [phone] Noreen Hills APRN, CNP Primary Care Provider [phone] Kalyan Galvan Unavailable Unavailable Reason for Referral Consultation (Routine) - Closed Specialty Diagnoses / Procedures Referred By Contact Refer red To Contact Diagnoses Snoring Noreen Hills [facility] [place] [id number] [address] [place] [address] [place] [id number] Referral ID Status Reason Start Date Expiration Date Visits Requ ested Visits Authorized [id number] Closed 08/08/2019 08/07/2020 1 1 WARE SOLUTIONS ARCHITECT Reason for Visit Reason Comments Physical Encounter Details Date Type Department Care Team Description 08/08/[address] [facility] Noreen Hills Routine ge neral medical examination at a health care facility (Primary Dx); Clinic Pino Haley APRN Moderate episode of recurren t major depressive disorder (H); [address] [facility] Persistent insomnia; [address] [facility]; [address] [facility] Vitamin D deficiency; [place] [address] [place] [address] Migraine without status migrainosus, not intractable, unspecified migraine type; [phone] Morbid obesity (H); (Work) Snoring; [phone] Type 2 diabetes mellitus with complication, without [...] How often do you attend lutheran or cheondoism Patient refused 08/08/2019 services? Do [...] Comments Blood Pressure 104/62 08/08/2019 8:59 AM SOFTWARE SOLUTIONS ARCHITECT Pulse 84 08/08/2019 8:59 AM SOFTWARE SOLUTIONS ARCHITECT Temperature 36.5 ??C (97.7 ??F) 08/08/2019 8:59 AM SOFTWARE SOLUTIONS ARCHITECT Respiratory Rate 16 08/08/2019 8:59 AM SOFTWARE SOLUTIONS ARCHITECT Oxygen Saturation 97% 08/08/2019 8:59 AM SOFTWARE SOLUTIONS ARCHITECT Inhaled Oxygen Concentration - - Weight 88 kg (193 lb 14.4 oz) 08/08/2019 8:59 AM SOFTWARE SOLUTIONS ARCHITECT Height 157.5 cm (5' 2) 08/08/2019 8:59 AM SOFTWARE SOLUTIONS ARCHITECT Body Mass Index 35.46 08/08/2019 8:59 AM SOFTWARE SOLUTIONS ARCHITECT documented in this encounter Patient Instructions [...] eye doctor every 1 to 2 years. WARE SOLUTIONS ARCHITECT documented in this encounter Progress Notes Noreen [...] NEG Negative Negative Test canceled - Lab mill recorder error(A) HPV 18 DNA NEG Negative Negative Test canceled - Lab mill recorder error(A) OTHER HR HPV NEG Negative Negative Test canceled - Lab mill recorder error(A) Reviewed and updated as needed [...] - SLEEP EVALUATION & MANAGEMENT REFERRAL - [facility] [phone] (Age 18 and up); Future 9. Type [...] - fluticasone (FLONASE) 50 MCG/ACT nasal spray; [place] 1-2 sprays into both nostrils daily Dispense: [...] Lung CA Screening Noreen Hills APRN CNP [facility] Christi Hanna MA - 08/08/2019 9:15 AM CST Forwarded to SB# RACHEL kennedy. This is regarding Ambien-verified with provider Christi Panda CMA Lashae Dorsey [facility] - 08/08/2019 9:15 AM CST Considerations: 1.Common [...] Trevino, PharmD Medication Therapy Management Pharmacist Pager#: [phone] WARE SOLUTIONS ARCHITECT documented in this encounter Plan of Treatment Scheduled Referrals Name Type Priority Associated Diagnoses Order S chedule SLEEP EVALUATION & Referral Routine Snoring 1 Occurre nces starting MANAGEMENT REFERRAL - 2019 until ADULT -[facility] 2020 [facility] [phone] (Age 18 and up) documented as of this encounter Procedures Procedure Name Priority Date/Time Associated Diagnosis Comme nts VITAMIN D DEFICIENCY Routine 08/08/2019 10:17 Vitamin D defici ency Results for this SCREENING AM SOFTWARE SOLUTIONS ARCHITECT procedure are i n the results section. ALBUMIN RANDOM URINE Routine 08/08/2019 10:17 Routine general Results for this QUANTITATIVE AM SOFTWARE SOLUTIONS ARCHITECT medical examination procedur e are in at a health care the results facility section. LIPID REFLEX TO Routine 08/08/2019 10:17 Routine general Resul ts for this DIRECT LDL PANEL AM SOFTWARE SOLUTIONS ARCHITECT medical examination proc edure are in at a [facility] care the results facility section. HEMOGLOBIN A1C Routine 08/08/2019 10:17 Routine general Result s for this AM SOFTWARE SOLUTIONS ARCHITECT medical examination procedur e are in at a health care the results facility section. BASIC METABOLIC PANEL Routine 08/08/2019 10:17 Routine general Results for this AM SOFTWARE SOLUTIONS ARCHITECT medical examination procedur e are in at a health care the results facility section. documented in this encounter Results Vitamin D Deficiency (08/08/2019 10:17 AM SOFTWARE SOLUTIONS ARCHITECT) P athologist Signature Vitamin D 49 20 - 75 08/08/2019 [facility] Deficiency ug/L 4:03 PM SOFTWARE SOLUTIONS ARCHITECT [facility] Comment: Season, race, dietary intake, and treatm ent affect the concentration of 54-eksswcv-Dbulvtm D. Values may decreas e during winter [...] Blood specimen 08/08/2019 10:17 0 (specimen) AM SOFTWARE SOLUTIONS ARCHITECT 10:18 AM SOFTWARE SOLUTIONS ARCHITECT Noreen Hills APRN, CNP LAB - BLOOD ORDERABLES Performing Organization Address City/State/ZIP Code Phon e Number [facility] [address] [place] [address] [facility] (ABNORMAL) HEMOGLOBIN A1C (08/08/2019 10:17 AM SOFTWARE SOLUTIONS ARCHITECT) athologist Signature Hemoglobin A1C 6.2 (H) 0 - 5.6 % 08/08/2019 [place] 10:44 AM [facility] Comment: Normal <5.7% Prediabetes 5.7-6.4% ??Diab etes 6.5% or higher - adopted from ADA consensus guidelines. Specimen Anatomical Collection Method Collection Time Receive d Time (Source) Location / / Volume Laterality Blood specimen 08/08/2019 10:17 0 (specimen) AM SOFTWARE SOLUTIONS ARCHITECT 10:18 AM SOFTWARE SOLUTIONS ARCHITECT Noreen Hills APRN, CNP LAB - BLOOD ORDERABLES Performing Organization Address City/State/ZIP Code Phon e Number [facility] [address] [place] [address] Albumin Random Urine Quantitative with Creat Ratio (08/08/2019 10:17 AM SOFTWARE SOLUTIONS ARCHITECT) athologist Signature Creatinine 154 mg/dL 08/09/2019 [place] Urine 1:54 PM SOFTWARE SOLUTIONS ARCHITECT [facility] Albumin Urine 11 mg/L 08/09/2019 [place] mg/L 1:59 PM SOFTWARE SOLUTIONS ARCHITECT [facility] Albumin Urine 7.14 0 - 25 08/09/2019 [place] mg/g Cr mg/g Cr 1:59 PM SOFTWARE SOLUTIONS ARCHITECT [facility] Specimen Anatomical Collection Method Collection Time Receive d Time (Source) Location / / Volume Laterality Urine specimen 08/08/2019 10:17 0 (specimen) AM SOFTWARE SOLUTIONS ARCHITECT 10:18 AM SOFTWARE SOLUTIONS ARCHITECT Noreen Hills APRN, CNP LAB - URINE ORDERABLES Performing Organization Address City/State/ZIP Code Phon e Number [facility] [address] [place] [address] (ABNORMAL) Lipid panel reflex to direct LDL Fasting (08/08/2019 10:17 AM SOFTWARE SOLUTIONS ARCHITECT) P athologist Signature Cholesterol 180 <200 mg/dL 08/08/2019 [place] 7:47 PM [facility] Triglycerides 153 (H) <150 mg/dL 08/08/2019 [place] 7:47 PM [facility] Comment: Borderline high: ??150-199 mg/dl High: ? 200-499 mg/dl Very high: ? >499 mg/dl HDL Cholesterol 46 (L) >49 mg/dL 08/08/2019 7:47 PM [facility] LDL Cholesterol 103 (H) <100 mg/dL 08/08/2019 7:47 PM [facility] Comment: Above desirable: ??100-129 mg/dl Borderline High: ??130-159 mg/dL High: ? 160-189 mg/dL Very high: ? >189 mg/dl Non HDL Cholesterol 134 (H) <130 mg/dL 08/08/2019 7:47 PM SOFTWARE SOLUTIONS ARCHITECT [facility] Comment: Above Desirable: ??130-159 mg/dl Borderline high: ??160-189 mg/dl High: ? 190-219 mg/dl Very high: ? >219 mg/dl Specimen Anatomical Collection Method Collection Time Receive d Time (Source) Location / / Volume Laterality Blood specimen 08/08/2019 10:17 0 (specimen) AM SOFTWARE SOLUTIONS ARCHITECT 10:18 AM SOFTWARE SOLUTIONS ARCHITECT Noreen Hills SENIOR NUCLEAR MEDICINE TECHNOLOGIST BASKETBALL ASSEMBLER LAB - BLOOD ORDERABLES Performing Organization Address City/State/ZIP Code Phon e Number [facility] [address] [place] [address] [phone] [facility] [address] [place] [address], U [phone] (ABNORMAL) BASIC METABOLIC PANEL (08/08/2019 10:17 AM SOFTWARE SOLUTIONS ARCHITECT) [facility] Method Time Signature Sodium 143 133 - 144 08/08/2019 [place] mmol/L 7:27 PM [facility] Potassium 4.3 3.4 - 5.3 08/08/2019 [place] mmol/L 7:27 PM [facility] Chloride 112 (H) 94 - 109 08/08/2019 [place] mmol/L 7:27 PM [facility] Carbon Dioxide 26 20 - 32 08/08/2019 [place] mmol/L 7:47 PM [facility] Anion Gap 5 3 - 14 08/08/2019 [place] mmol/L 7:47 PM [facility] Glucose 120 (H) 70 - 99 08/08/2019 [place] mg/dL 7:47 PM [facility] Urea Nitrogen 16 7 - 30 08/08/2019 [place] mg/dL 7:47 PM [facility] Creatinine 0.72 0.52 - 08/08/2019 [place] 1.04 mg/dL 7:47 PM [facility] GFR Estimate >90 >60 08/08/2019 [place] mL/min/{1. 7:47 PM [facility] 73_m2} [facility] Comment: Non GFR Calc Starting 05/28/2018, serum creatinine ba sed estimated GFR (eGFR) will be calculated using the Chronic Kidney Dise [facility] Epidemiology Collaboration (CKD-EPI) equation. GFR Estimate If >90 >60 mL/min/{1.73_m2} 08/08/2019 7: 47 PM [facility] Comment: GFR Calc Starting 05/28/2018, serum creatinine ba sed estimated GFR (eGFR) will be calculated using the Chronic Kidney Dise [facility] Epidemiology Collaboration (CKD-EPI) equation. Calcium 9.5 8.5 - 10.1 mg/dL 08/08/2019 7:47 PM [facility] Specimen Anatomical Collection Method Collection Time Receive d Time (Source) Location / / Volume Laterality Blood specimen 08/08/2019 10:17 0 (specimen) AM SOFTWARE SOLUTIONS ARCHITECT 10:18 AM SOFTWARE SOLUTIONS ARCHITECT Noreen Hills APRN BASKETBALL ASSEMBLER LAB - BLOOD ORDERABLES Performing Organization Address City/State/ZIP Code Phon e Number [facility] [address] [place] [address] [phone] [facility] [address] [place], [place] [address] [phone] [place] [address] [address] [place], [place] [address], U [phone] documented in this encounter Visit Diagnoses Diagnosis [...] Depression Total Score: 9 08/09/2019 7:03 AM SOFTWARE SOLUTIONS ARCHITECT documented as of this encounter Care Teams Second Officer Relationship Specialty Start Date End Date Noreen Hills PCP - General Nurse Practitioner 01/09/19 12/12/21 SEAN Haley BASKETBALL ASSEMBLER [address] [facility] [place] [address] oNreen Hills Assigned PCP 06/16/18 SEAN Haley BASKETBALL ASSEMBLER [address] [facility] [place] [address] Kalyan Galvan Personal Advocate & 08/08/19 Liaison (PAL) documented as of this encounter
--- OUTSIDE RECORDS SUMMARY | 2022-05-09 13:25 | XMS_ITS | Encounter Summary ---
:1965 Author Organization [place] Address [address] [place] [address] Care Team Providers Name Role Phone Noreen Hills APRN, CNP Unavailable [phone] Noreen Hills APRN, CNP Primary Care Provider [phone] Reason for Visit [facility] Physical Therapy (Routine) - Closed Specialty Diagnoses / Procedures Referred By Contact Refer red To Contact Diagnoses Left foot pain Right foot pain Coello's neuroma of both feet Pes cavus Peroneal tendinitis of both lower legs Agatha Null, DPM, Podiatry/Foot and Ankle Surgery [address] [place] [address] Referral ID Status Reason Start Date Expiration Date Visits Requ ested Visits Authorized [id number] Closed 01/21/2019 06/10/2019 30 30 Encounter Details Date Type Department Care Team Description 02/11/2019 Therapy Visit [facility] Marcelo Trejo, Left foot pain; Rehabilitation Services PT Right foot pain; iPno [address] Peroneal tendinitis of both lower legs; [address] [place], [place] Chronic ri ght shoulder pain [address] [address] [address] [place] [address] (Work) [phone] Social History Tobacco Use Types Packs/Day Years [...] How often do you attend pentecostalism or evangelical Patient refused 08/08/2019 services? Do [...] documented as of this encounter Care Teams Multiplex Operator Relationship Specialty Start Date End Date Noreen Hills APRN CURTAIN INSPECTOR PCP - General Nurse Practitioner 01/09/19 12/12/21 [address] [facility] [place] [address] Noreen Hills APRN CURTAIN INSPECTOR Assigned PCP 06/16/[address] [place] [address] [place] [address] documented as of this encounter
--- OUTSIDE RECORDS SUMMARY | 2022-05-09 13:25 | XMS_ITS | Encounter Summary ---
:1965 Author Organization [place] Address [address] [place] [address] Care Team Providers Name Role Phone Noreen Hills APRN SAMPLE TAKER OPERATOR Unavailable [phone] Noreen Hills APRN, CNP Primary Care Provider [phone] Kalyan Galvan Unavailable Unavailable Encounter Details Date [...] How often do you attend restorationist or mormon Patient refused 08/08/2019 services? Do [...] Depression Total Score: 9 08/09/2019 7:03 AM CONVEX GRINDER documented as of this encounter Care Teams Certified Tumor Registrar Relationship Specialty Start Date End Date Noreen Hills PCP - General Nurse Practitioner 01/09/19 12/12/21 SEAN Haley SAMPLE TAKER OPERATOR [address] [facility] [place] [address] Noreen Hills Assigned PCP 06/16/18 SEAN Haley SAMPLE TAKER OPERATOR [address] [facility] [place] [address] Kalyan Galvan Personal Advocate & 08/08/19 Liaison (PAL) documented as of this encounter
--- OUTSIDE RECORDS SUMMARY | 2022-05-09 13:25 | XMS_ITS | Encounter Summary ---
:1965 Author Organization [place] Address [address] [place] [address] Care Team Providers Name Role Phone Noreen Hills APRN, CNP Unavailable [phone] Noreen Hills APRN, CNP Primary Care Provider [phone] Encounter Details Date Type Department Care Team [...] How often do you attend sabianism or worship Patient refused 08/08/2019 services? Do [...] documented as of this encounter Care Teams Bliss Press Operator Relationship Specialty Start Date End Date Noreen Hills APRN CERTIFIED ACTIVITIES DIRECTOR PCP - General Nurse Practitioner 01/09/19 12/12/[address] [place] [address] [place] [address] Noreen Hills APRN CERTIFIED ACTIVITIES DIRECTOR Assigned PCP 06/16/[address] [place] [address] [place] [address] documented as of this encounter
--- OUTSIDE RECORDS SUMMARY | 2022-05-09 13:25 | XMS_ITS | Encounter Summary ---
:1965 Author Organization [place] Address [address] [place] [address] Care Team Providers Name Role Phone Noreen Hills APRN, CNP Unavailable [phone] Noreen Hills APRN, CNP Primary Care Provider [phone] Encounter Details Date Type Department Care Team [...] How often do you attend mandaeism or druze Patient refused 08/08/2019 services? Do [...] documented as of this encounter Care Teams Marketing Programs Manager Relationship Specialty Start Date End Date Noreen Hills APRN FINAL TESTER PCP - General Nurse Practitioner 01/09/19 12/12/[address] [place] [address] [place] [address] Noreen Hills APRN FINAL TESTER Assigned PCP 06/16/[address] [place] [address] [place] [address] documented as of this encounter
--- OUTSIDE RECORDS SUMMARY | 2022-05-09 13:25 | XMS_ITS | Encounter Summary ---
:1965 Author Organization [place] Address [address] [place] [address] Care Team Providers Name Role Phone Noreen Hills APRN, CNP Unavailable [phone] Noreen Hills APRN, CNP Primary Care Provider [phone] Reason for Visit Reason Comments Medication Refill Encounter Details Date Type Department Care Team Description 05/13/2019 Refill [facility] Aleyda Guerrero MD Medication Refill [place] [address] [facility] [address] [facility] [place] [address] [address] [place] [address] [phone] Social History Tobacco Use Types Packs/Day Years [...] How often do you attend pentecostal or jewish Patient refused 08/08/2019 services? Do [...] Cartagena RN - 05/13/2019 10:41 AM HEAD CHAR FILTER TANK TENDER Patient has refills remaining with requesting pharmacy. Keyona Palacios - Registered Nurse [facility] Acute and Diagnostic Services CHAR FILTER TANK TENDER documented in this encounter Plan of Treatment Not on filedocumented as of this encounter Visit Diagnoses Diagnosis Chronic seasonal allergic rhinitis documented in this encounter Additional Health Concerns Assessment Noted Time PHQ-9 Depression Total Score: 10 01/02/2019 10:18 AM C DT documented as of this encounter Care Teams Client Technical Support Associate Relationship Specialty Start Date End Date Noreen Hills APRN IDENTIFICATION PRINTING MACHINE SETTER PCP - General Nurse Practitioner 01/09/19 12/12/21 [address] [facility] [place] [address] Noreen Hills APRN IDENTIFICATION PRINTING MACHINE SETTER Assigned PCP 06/16/18 [address] [facility] [place] [address] documented as of this encounter
--- OUTSIDE RECORDS SUMMARY | 2022-05-09 13:25 | XMS_ITS | Encounter Summary ---
:1965 Author Organization [place] Address [facility] [place] [address] Care Team Providers Name Role Phone Noreen Hills APRN, CNP Unavailable [phone] Noreen Hills APRN, CNP Primary Care Provider [phone] Reason for Visit [facility] Physical Therapy (Routine) - Closed Specialty Diagnoses / Procedures Referred By Contact Refer red To Contact Diagnoses Left foot pain Right foot pain Coello's neuroma of both feet Pes cavus Peroneal tendinitis of both lower legs Agatha Null, DPM, Podiatry/Foot and Ankle Surgery [address] [place] [address] Referral ID Status Reason Start Date Expiration Date Visits Requ ested Visits Authorized [id number] Closed 01/21/2019 06/10/2019 30 30 Encounter Details Date Type Department Care Team Description 02/25/2019 Therapy Visit [facility] [place], Left fo ot pain; Rehabilitation Services PT Right foot pain; [place] [address] Peroneal tendinitis of both lower legs; [address] Chronic right shoulder pain [place], [place] [address] [address] [place], [place] [id number] Social History Tobacco Use Types Packs/Day Years [...] How often do you attend zoroastrianism or scientology Patient refused 08/08/2019 services? Do [...] and time spent performing 1:1 timed codes. AL IMPLEMENTATION MANAGER documented in this encounter Plan of Treatment Not on filedocumented as of this encounter Procedures Procedure Name Priority Date/Time Associated Diagnosis Comme nts [facility] NEUROMUSCULAR Routine 02/25/2019 10:49 AM Left foot pain RE-EDUCATION CDT Right foot pain Peroneal tendinitis of both lower le gs Chronic right shoulder pain [facility] THERAPEUTIC EXERCISES Routine 02/25/2019 [...] documented as of this encounter Care Teams Secretary Relationship Specialty Start Date End Date Noreen Hills APRN FUEL CELL TECHNICIAN PCP - General Nurse Practitioner 01/09/19 12/12/[address] [place] [address] [place] [address] Noreen Hills APRN FUEL CELL TECHNICIAN Assigned PCP 06/16/18 [address] [facility] [place] [address] documented as of this encounter
--- OUTSIDE RECORDS SUMMARY | 2022-05-09 13:25 | XMS_ITS | Encounter Summary ---
:1965 Author Organization [place] Address [address] [place] [address] Care Team Providers Name Role Phone Noreen Hills APRN BLIND STITCH MACHINE OPERATOR Unavailable [phone] Noreen Hills APRN BLIND STITCH MACHINE OPERATOR Primary Care Provider [phone] Reason for Visit Reason Comments Medication Refill Encounter Details Date Type Department Care Team Description 07/08/2019 Refill [facility] Noreen Hills istine, Medication Refill [place] BLIND STITCH MACHINE OPERATOR [address] [facility] [address] [place] [address] [address] [place] [address] [place] [address] [phone] Social History Tobacco Use Types Packs/Day Years [...] often do you attend latter day or restorationism Patient refused 08/08/2019 services? Do [...] Deisy Moon RN - 07/08/2019 3:47 PM INSIDE SALES REPRESENTATIVE Routing refill request to provider for review/approval because: Drug not on the G refill protocol Next 5 appointments (look out 90 days) Aug 08, 2019 9:15 AM INSIDE SALES REPRESENTATIVE (Arrive by 8:50 AM) Adult Preventative Visit with Noreen Hills [facility] [address] [place] [address] [address] [facility] [address] DE SALES REPRESENTATIVE documented in this encounter Plan of Treatment Not on filedocumented as of this encounter Visit Diagnoses Diagnosis Constipation, unspecified constipation t ype documented in this encounter Additional Health Concerns Assessment Noted Time PHQ-9 Depression Total Score: 10 01/02/2019 10:18 AM C DT documented as of this encounter Care Teams Senior Quality Control Inspector Relationship Specialty Start Date End Date Noreen Hills APRN BLIND STITCH MACHINE OPERATOR PCP - General Nurse Practitioner 01/09/19 12/12/[address] [place] [address] [place] [address] Noreen Hills APRN BLIND STITCH MACHINE OPERATOR Assigned PCP 06/16/[address] [place] [address] [place] [address] documented as of this encounter
--- OUTSIDE RECORDS SUMMARY | 2022-05-09 13:25 | XMS_ITS | Encounter Summary ---
:1965 Author Organization [place] Address [address] [place] [address] Care Team Providers Name Role Phone Noreen Hills APRN, CNP Unavailable [phone] Noreen Hills APRN BILL BOARD POSTER Primary Care Provider [phone] Reason for Visit Reason Comments Medication Refill duplicate, see other enc - C VS ALLERGY RELIEF-D 10-240 MG 24 hr tablet Encounter Details Date Type Department Care Team Description 05/21/[address] [facility] Vanda Guerrero M edication Refill Clinic [place] [place] (duplicate, see other [address] [place] [address] [facility] enc - [facility] RELIEF-D 10-240 MG 24 [address] [place] [address] hr tablet) [place] [address] [phone] Social History Tobacco Use Types Packs/Day Years [...] How often do you attend sabianism or orthodox Patient refused 08/08/2019 services? Do [...] is a duplicate request. See 05/18/19 encounter. AR CARE AIDE documented in this encounter Plan of Treatment Not on filedocumented as of this encounter Visit Diagnoses Diagnosis Chronic seasonal allergic rhinitis documented in this encounter Additional Health Concerns Assessment Noted Time PHQ-9 Depression Total Score: 10 01/02/2019 10:18 AM C DT documented as of this encounter Care Teams Diamond Die Maker Relationship Specialty Start Date End Date Noreen Hills APRN BILL BOARD POSTER PCP - General Nurse Practitioner 01/09/19 12/12/[address] [place] [address] [place] [address] Noreen Hills APRN BILL BOARD POSTER Assigned PCP 06/16/[address] [place] [address] [place] [address] documented as of this encounter
--- OUTSIDE RECORDS SUMMARY | 2022-05-09 13:25 | XMS_ITS | Encounter Summary ---
:1965 Author Organization [place] Address [address] [place] [address] Care Team Providers Name Role Phone Noreen Hills APRN COMMERCIAL LIGHT FIXTURE ASSEMBLER Unavailable [phone] Noreen Hills APRN COMMERCIAL LIGHT FIXTURE ASSEMBLER Primary Care Provider [phone] Reason for Visit Reason Comments Medication Refill Encounter Details Date Type Department Care Team Description 06/11/[address] [facility] Noreen Hills istine, Medication Refill Pino ESTRADA COMMERCIAL LIGHT FIXTURE ASSEMBLER [address] [facility] [address] [place] [address] [address] [place] [address] [place] [address] [phone] Social History Tobacco Use Types Packs/Day Years [...] How often do you attend temple or druze Patient refused 08/08/2019 services? Do [...] Ok x one refill has appointment pending UNICATION SPEC Telephone Encounter - Rosalia Garcia MA - [...] 90 days) Aug 08, 2019 9:15 AM COMMUNICATION SPEC (Arrive by 8:50 AM) Adult Preventative Visit with Noreen Hills APRN CNP [facility] Pino) [address] [place] [address] [address] [place] [address] UNICATION SPEC documented in this encounter Plan of Treatment [...] documented as of this encounter Care Teams Orthopaedic General Relationship Specialty Start Date End Date Noreen Hills APRN CNP PCP - General Nurse Practitioner 01/09/19 12/12/[address] [place] [address] [place] [address] Noreen Hills APRN CNP Assigned PCP 06/16/18 [address] [facility] [place] [address] documented as of this encounter
--- OUTSIDE RECORDS SUMMARY | 2022-05-09 13:25 | XMS_ITS | Encounter Summary ---
:1965 Author Organization [place] Address [address] [place] [address] Care Team Providers Name Role Phone Noreen Hills APRN, CNP Unavailable Noreen Hills APRN, CNP Primary Care Provider [phone] Reason for Visit Reason Comments Medication Refill Encounter Details Date Type Department Care Team Description 05/26/2019 Refill [facility] Aleyda Guerrero MD Medication Refill [place]ino 3305 [facility] 3305 [facility] [place] [address] [address] [place] [address] [phone] Social History Tobacco Use Types Packs/Day Years [...] How often do you attend hinduism or oriental orthodox Patient refused 08/08/2019 services? [...] Hills APRN CNP - 05/27/2019 11:08 AM BATTERY INSTALLER See refill request from 05/22 ERY INSTALLER Telephone Encounter - Flakita Gaines RN - 05/27/2019 10:57 AM CST Routing refill request to provider for review/approval because: Drug not on the [facility] refill protocol Flakita Gaines RN ERY INSTALLER documented in this encounter Plan of Treatment Not on filedocumented as of this encounter Visit Diagnoses Diagnosis Chronic seasonal allergic rhinitis documented in this encounter Additional Health Concerns Assessment Noted Time PHQ-9 Depression Total Score: 10 01/02/2019 10:18 AM C DT documented as of this encounter Care Teams Installation Manager Relationship Specialty Start Date End Date Noreen Hills APRN TEST KITCHEN HOME ECONOMIST PCP - General Nurse Practitioner 01/09/19 12/12/[address] [place] [address] [place] [address] Noreen Hills APRN TEST KITCHEN HOME ECONOMIST Assigned PCP 06/16/[address] [place] [address] [place] [address] documented as of this encounter
--- OUTSIDE RECORDS SUMMARY | 2022-05-09 13:25 | XMS_ITS | Encounter Summary ---
:1965 Author Organization [place] Address [address] [place] [address] Care Team Providers Name Role Phone Noreen Hills APRN, CNP Unavailable [phone] Noreen Hills APRN, CNP Primary Care Provider [phone] Kalyan Galvan Unavailable Unavailable Lashae Trevino [facility] Unavailable [phone] Eduardo Sharma MD Unavailable Rios Monteiro MD Unavailable Marcelo Artis PA-C Unavailable [phone] Rodrigo Man PA-C Unavailable Reason for Visit Reason Onset Date Comments Refill Request 08/08/2019 DULoxetine (CYMBALTA ) 30 MG capsule Encounter Details Date Type Department Care Team Description 08/08/2019 Refill [facility] Noreen Hills [facility] [place]ino Haley APRN CNP (DULoxetine (CYMBALTA) 3304 [place] 3308 [facility] 30 MG capsule) [facility] [address] [place] [address] [place] [address] [phone] Social History Tobacco Use Types Packs/Day Years [...] How often do you attend christianity or pentecostal Patient refused 08/08/2019 services? Do [...] this in for her. Radha Manning RN [facility] -- Triage Nurse ILE PROCESS COORDINATOR Telephone Encounter - Noreen Hills APRN CNP - 08/11/2019 9:41 AM STERILE PROCESS COORDINATOR Please verify that she was previously taking 1 tab twice a day. If so, please switch it to 1, 60mg tab, once per day. Pls notify her of the change. ILE PROCESS COORDINATOR Telephone Encounter - Gayathri Mcallister RN - 08/11/2019 9:38 AM CST Please review sig for duloxetine, hydrochlorothiazide and metformin ( per review of last office visit 2000 mg daily of metformin, I am not sure about Duloxetine sig and dispense amount, Thank you) Gayathri Mcallister RN Message handled by Nurse Triage. ILE PROCESS COORDINATOR Telephone Encounter - Kartik Javier - 08/08/2019 5:46 PM CST Also Review Rx directions for Metformin hydrochloride 500 mg. Pharmacy is requesting clarification. ILE PROCESS COORDINATOR Telephone Encounter - Kartik Javier - 08/08/2019 2:39 PM CST Script Clarification: Rx has two sets of directions. Please send new Rx with the Proper Directions. Thanks. ILE PROCESS COORDINATOR documented in this encounter Plan of Treatment Not on filedocumented as of this encounter Visit Diagnoses Diagnosis Fibromyalgia Mylagia and myositis, unspecified documented in this encounter Additional Health Concerns Infection Onset Date Last Indicated Resolved Time Rule Out COVID-19 08/25/2020 08/25/2020 08/26/2020 3:2 3 PM CDT Assessment Noted Time PHQ-9 Depression Total Score: 9 08/09/2019 7:03 AM STERILE PROCESS COORDINATOR documented as of this encounter Care Teams Cloth Inspector Relationship Specialty Start Date End Date Noreen Hills PCP - General Nurse Practitioner 01/09/19 12/12/21 SEAN Haley CISCO CERTIFIED INTERNETWORK EXPERT 3305 [facility] [place] [address] Noreen Hills Assigned PCP 06/16/18 SEAN Haley CISCO CERTIFIED INTERNETWORK EXPERT 3305 [facility] [place] [id number] Kalyan Galvan Personal Advocate & 08/08/19 Liaison (PAL) Lashae Trevino Pharmacist Pharmacist 10/14/19 12/01/20 [facility] 1440 [facility] [place] [id number] Eduardo Sharma MD Assigned Sleep Provider 04/02/20 05/07/21 [address] [facility] [address] [place], [place] [address] Rios Monteiro MD Assigned Musculoskeletal 04/02/20 08/24/20 [address] [employer] Provider [address] [address] [place], [place] [address] Marcelo Artis Assigned Musculoskeletal 08/25/20 08/20/21 MIKAYLA Nuno Provider [address] [place] [address] [place], [place] [address] Rodrigo Man Assigned Surgical 08/25/2011/27 MIKAYLA Lacy Provider [address] [facility] [address] [place] [id number] documented as of this encounter
--- OUTSIDE RECORDS SUMMARY | 2022-05-09 13:25 | XMS_ITS | Encounter Summary ---
:1965 Author Organization [place] Address [address] [place] [address] Care Team Providers Name Role Phone Noreen Hills APRN BUSINESS SUPPORT SPECIALIST Unavailable [phone] Noreen Hills APRN BUSINESS SUPPORT SPECIALIST Primary Care Provider [phone] Encounter Details Date Type Department Care Team Description 02/03/2019 Orders Only [facility] Noreen Hills Type 2 [facility] [place] Haley APRN mellitus wit h Laboratory BUSINESS SUPPORT SPECIALIST complication, without [address] [place] 3305 [facility] long- term current use [facility] of insulin (H) [address] [place] [address] [place] [phone] Social History Tobacco Use Types Packs/Day Years [...] How often do you attend latter-day or nondenominational Patient refused 08/08/2019 services? Do [...] Time Signature Occult Blood Negative NEG^Negati 02/01/2019 [facility] FIT ve 10:58 AM CDT [facility] Specimen Anatomical Collection Method Collection Time Receive d Time (Source) Location / / Volume Laterality Stool specimen 01/25/2019 7:35 AM 019 (specimen) CDT 10:01 AM CDT Noreen Hills APRN, CNP LAB - STOOLS ORDERABLES Performing Organization Address City/State/ZIP Code Phon e Number [facility] [address] [place], [place] [id number] [place] [address] documented in this encounter Visit Diagnoses Diagnosis Type 2 diabetes mellitus with complicati on, without long-term current use of insulin (H) documented in this encounter Additional Health Concerns Assessment Noted Time PHQ-9 Depression Total Score: 10 01/02/2019 10:18 AM C DT documented as of this encounter Care Teams Account Executive Sales Representative Relationship Specialty Start Date End Date Noreen Hills APRN CNP PCP - General Nurse Practitioner 01/09/19 12/12/21 [address] [facility] [place] [address] Noreen Hills APRN CNP Assigned PCP 06/16/18 [address] [facility] [place] [address] documented as of this encounter
--- OUTSIDE RECORDS SUMMARY | 2022-05-09 13:26 | XMS_ITS | Encounter Summary ---
:1965 Author Organization [place] Address [address] [place] [address] Care Team Providers Name Role Phone Vanda Guerrero MD Primary Care Provider [phone] Noreen Hills APRN DIETITIAN HELPER Unavailable [phone] Reason for Visit Reason Comments Medication Refill omeprazole (PRILOSEC) 20 MG CR capsule Encounter Details Date Type Department Care Team Description 11/09/[address] [facility] Vanda Guerrero M edication Refill Clinic [place]ino SALDANA (omeprazole (PRILOSEC) 3305 [place] 3305 [facility] 20 MG CR capsule) [facility] [address] [place] [address] [place] [address] [phone] Social History Tobacco Use Types Packs/Day Years [...] How often do you attend gnosticist or nondenominational Patient refused 08/08/2019 services? Do [...] 11/11/2018 2:05 PM CDT Prescription approved per [facility] Refill Protocol. Shala Blackmon RN Telephone Encounter [...] Total Score: 7 06/25/2018 9:49 AM POWER PLANT OPERATOR documented as of this encounter Care Teams Manager Commission Relationship Specialty Start Date End Date Vanda Guerrero MD PCP - General Internal Medicine 04/08/15 01/08/[address] [place] [address] [place] [address] Noreen Hills APRN DIETITIAN HELPER Assigned PCP 06/16/18 3305 [facility] [place] [address] documented as of this encounter
--- OUTSIDE RECORDS SUMMARY | 2022-05-09 13:26 | XMS_ITS | Encounter Summary ---
:1965 Author Organization [place] Address [address] [place] [address] Care Team Providers Name Role Phone Vanda Guerrero MD Primary Care Provider [phone] Noreen Hills APRN BAND BOOKER Unavailable [phone] Noreen Hills APRN BAND BOOKER Unavailable [phone] Encounter Details Date Type Department Care Team [...] How often do you attend mormon or sikhism Patient refused 08/08/2019 services? Do [...] Depression Total Score: 7 06/25/2018 9:49 AM NAPPING MACHINE OPERATOR documented as of this encounter Care Teams Rehab Department Manager Relationship Specialty Start Date End Date Vanda Guerrero MD PCP - General Internal Medicine 04/08/15 01/08/[address] [place] [address] [place] [address] Noreen Hills APRN PCP - Assigned PCP 06/16/18 08/13/[address] [place] [address] Noreen Hills APRN Assigned PCP 06/16/[address] [place] [address] documented as of this encounter
--- OUTSIDE RECORDS SUMMARY | 2022-05-09 13:26 | XMS_ITS | Encounter Summary ---
:1965 Author Organization [place] Address [address] [place] [address] Care Team Providers Name Role Phone Vanda Guerrero MD Primary Care Provider [phone] Noreen Hills APRN CASTING PLUG ASSEMBLER Unavailable [phone] Reason for Visit Reason Onset Date Comments Panel Management 12/09/2018 Encounter Details Date Type Department Care Team Description 12/09/2018 Telephone [facility] Noreen Hills Management Pino Haley APRN CASTING PLUG ASSEMBLER 3305 [facility] 3305 [facility] [address] [place] [address] [place] [address] [phone] Social History Tobacco Use Types Packs/Day Years [...] How often do you attend taoist or mosque Patient refused 08/08/2019 services? Do [...] with pre-visit labs. Type of outreach: Sent [employer] message. Questions for provider review: None Christi Panda CMA Chart routed to Care Team . documented in this encounter Plan of Treatment Not on filedocumented as of this encounter Visit Diagnoses Not on filedocumented in this encounter Additional Health Concerns Assessment Noted Time PHQ-9 Depression Total Score: 7 06/25/2018 9:49 AM HAND PACKER documented as of this encounter Care Teams Asbestos Textile Supervisor Relationship Specialty Start Date End Date Vanda Guerrero MD PCP - General Internal Medicine 04/08/15 01/08/[address] [facility] [place] [address] Noreen Hills APRN CASTING PLUG ASSEMBLER Assigned PCP 06/16/[address] [place] [address] [place] [phone] documented as of this encounter
--- OUTSIDE RECORDS SUMMARY | 2022-05-09 13:26 | XMS_ITS | Encounter Summary ---
:1965 Author Organization [place] Address [address] [place] [address] Care Team Providers Name Role Phone Noreen Hills APRN BODY BUILDER APPRENTICE Unavailable [phone] Noreen Hills APRN, CNP Primary Care Provider [phone] Reason for Visit [facility] (Routine) - Closed Specialty Diagnoses / Procedures Referred By Contact Refer red To Contact Diagnoses Acute pain of right shoulder Noreen Hills APRN BODY BUILDER APPRENTICE 3305 [facility] [place] [address] Referral ID Status Reason Start Date Expiration Date Visits Requ ested Visits Authorized [id number] Closed 01/02/2019 06/10/2019 30 30 Encounter Details Date Type Department Care Team Description 01/10/2019 Therapy Visit [facility] Marcelo Trejo Chro isaac right shoulder pain (Primary Dx); Rehabilitation Services PT Acute pain of right shoulder Pino [address] [place] [address] [address] [address] [place] [address] (Work) [phone] Social History Tobacco Use Types Packs/Day Years [...] How often do you attend mormonism or anabaptist Patient refused 08/08/2019 services? Do [...] Trejo PT - 01/10/2019 3:50 PM CDT [facility] Initial Evaluation Subjective: The history is provided by the patient and a caregiver. No modern languages professor was used. Megan Choi being seen for [...] Since onset symptoms are unchanged. 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 Restrictions include: Working in normal job without [...] Sheet for this information) Short term and equipment operator intermodal yard goals: (See Goal Flow Sheet for this [...] Procedure Name Priority Date/Time Associated Diagnosis Comme [facility] Z THERAPEUTIC Routine 01/10/2019 4:26 PM [...] documented as of this encounter Care Teams Packager Hand Relationship Specialty Start Date End Date Noreen Hills APRN BODY BUILDER APPRENTICE PCP - General Nurse Practitioner 01/09/19 12/12/21 2087 [facility] [place] [phone] Noreen Hills APRN BODY BUILDER APPRENTICE Assigned PCP 06/16/18 3305 [facility] [place] [address] documented as of this encounter
--- OUTSIDE RECORDS SUMMARY | 2022-05-09 13:26 | XMS_ITS | Encounter Summary ---
:1965 Author Organization [place] Address [address] [place] [address] Care Team Providers Name Role Phone Vanda Guerrero MD Primary Care Provider [phone] Noreen Hills APRN POLICY DIRECTOR Unavailable [phone] Encounter Details Date Type Department Care Team [...] Total Score: 7 06/25/2018 9:49 AM MANAGER APPLICATION DEVELOPMENT documented as of this encounter Care Teams Corporate Controller Relationship Specialty Start Date End Date Vanda Guerrero MD PCP - General Internal Medicine 04/08/15 01/08/[address] [place] [address] [place] [address] Noreen Hills APRN POLICY DIRECTOR Assigned PCP 06/16/18 3305 [facility] [place] [address] documented as of this encounter
--- OUTSIDE RECORDS SUMMARY | 2022-05-09 13:26 | XMS_ITS | Encounter Summary ---
:1965 Author Organization [place] Address [address] [place] [address] Care Team Providers Name Role Phone Vanda Guerrero MD Primary Care Provider [phone] Noreen Hills APRN SET O TYPE OPERATOR Unavailable [phone] Encounter Details Date Type Department Care Team [...] How often do you attend faith or mandaen Patient refused 08/08/2019 services? Do [...] as of this encounter Care Teams Technical Specialist Cytology Relationship Specialty Start Date End Date Vanda Guerrero MD PCP - General Internal Medicine 04/08/15 01/08/[address] [place] [address] [place] [address] Noreen Hills APRN SET O TYPE OPERATOR Assigned PCP 06/16/[address] [place] [address] [place] [address] documented as of this encounter
--- OUTSIDE RECORDS SUMMARY | 2022-05-09 13:26 | XMS_ITS | Encounter Summary ---
:1965 Author Organization [place] Address [address] [place] [address] Care Team Providers Name Role Phone Vanda Guerrero MD Primary Care Provider [phone] Noreen Hills APRN WEIGHTS AND MEASURES INSPECTOR Unavailable [phone] Encounter Details Date Type Department Care Team [...] How often do you attend christianity or voodoo Patient refused 08/08/2019 services? Do [...] Depression Total Score: 7 06/25/2018 9:49 AM PSYCHOLOGIST CHIEF documented as of this encounter Care Teams Talent Acquisition Project Manager Relationship Specialty Start Date End Date Vanda Guerrero MD PCP - General Internal Medicine 04/08/15 01/08/[address] [place] [address] [place] [address] Noreen Hills APRN WEIGHTS AND MEASURES INSPECTOR Assigned PCP 06/16/18 3305 [facility] [place] [address] documented as of this encounter
--- OUTSIDE RECORDS SUMMARY | 2022-05-09 13:26 | XMS_ITS | Encounter Summary ---
:1965 Author Organization [place] Address [address] [place] [address] Care Team Providers Name Role Phone Noreen Hills APRN, CNP Unavailable [phone] Noreen Hills APRN, CNP Primary Care Provider [phone] Encounter Details Date Type Department Care Team [...] How often do you attend christianity or advent Patient refused 08/08/2019 services? Do [...] Start Date End Date Noreen Hills APRN LOAD OUT SUPERVISOR PCP - General Nurse Practitioner 01/09/19 12/12/[address] [place] [address] [place] [address] Noreen Hills APRN LOAD OUT SUPERVISOR Assigned PCP 06/16/[address] [place] [address] [place] [address] documented as of this encounter
--- OUTSIDE RECORDS SUMMARY | 2022-05-09 13:26 | XMS_ITS | Encounter Summary ---
:1965 Author Organization [place] Address [address] [place] [address] Care Team Providers Name Role Phone Vanda Guerrero MD Primary Care Provider [phone] Vanda Guerrero MD Unavailable Encounter Details [...] How often do you attend baptism or congregation Patient refused 08/08/2019 services? Do [...] documented as of this encounter Care Teams Limousine And Hearse Upholsterer Relationship Specialty Start Date End Date Vanda Guerrero MD PCP - General Internal Medicine 04/08/15 01/08/[address] [place] [address] [place] [address] Vanda Guerrero MD PCP - Assigned PCP 07/24/16 06/15/[address] [place] [address] [place] [address] documented as of this encounter
--- OUTSIDE RECORDS SUMMARY | 2022-05-09 13:26 | XMS_ITS | Encounter Summary ---
:1965 Author Organization [place] Address [address] [place] [address] Care Team Providers Name Role Phone Vanda Guererro MD Primary Care Provider [phone] Vanda Guerrero MD Unavailable Reason for Visit Reason Comments Medication Refill metFORMIN (GLUCOPHAGE) 500 M G tablet Encounter Details Date Type Department Care Team Description 05/23/2018 Refill [facility] Vanda Guerrero M edication Refill Clinic [place] SALDANA (metFORMIN (GLUCOPHAGE) 3305 [place] 3305 [facility] 500 M G tablet) [facility] [address] [place] [address] [place] [address] [phone] Social History Tobacco Use Types Packs/Day Years [...] How often do you attend restoration or church Patient refused 08/08/2019 services? Do [...] - Lori Weber - 06/03/2018 8:18 AM STEEL POURER Type of outreach: Phone, spoke to patient. [...] PLANNING Q5 YRS 2018 Lori Weber MA L POURER Telephone Encounter - Adali Pierson - 05/27/2018 2:45 PM CST LVM for patient to callback. Thanks Chema Allan Team Coodinator L POURER Telephone Encounter - Gayathri Mcallister RN - 05/27/2018 11:47 AM STEEL POURER TC-please call patient to schedule: Return in about 1 week (around 04/16/2018) for Establish care/DM with Florentino, then to lab, please ask if she wants flu. Prescription approved per [facility] Refill Protocol. Gayathri Mcallister RN Message handled by Nurse Triage. L POURER Telephone Encounter - Marisa Matthew - 05/23/2018 [...] & Orders section of the refill encounter. L POURER documented in this encounter Plan of Treatment Not on filedocumented as of this encounter Visit Diagnoses Diagnosis Type 2 diabetes mellitus without complic ation, without long-term current use of insulin (H) documented in this encounter Additional Health Concerns Assessment Noted Time PHQ-9 Depression Total Score: 8 02/18/2018 7:04 AM CDT documented as of this encounter Care Teams Lens Coating Technician Relationship Specialty Start Date End Date Vanda Guerrero MD PCP - General Internal Medicine 04/08/15 01/08/19 3305 [facility] [place] [address] Vanda Guerrero MD PCP - Assigned PCP 07/24/16 06/15/18 3305 [facility] [place] [address] documented as of this encounter
--- OUTSIDE RECORDS SUMMARY | 2022-05-09 13:26 | XMS_ITS | Encounter Summary ---
:1965 Author Organization [place] Address [address] [place] [address] Care Team Providers Name Role Phone Vanda Guerrero MD Primary Care Provider [phone] Noreen Hills APRN LOAD MANAGER Unavailable [phone] Encounter Details Date Type Department Care Team [...] How often do you attend amish or jewish Patient refused 08/08/2019 services? Do [...] Total Score: 7 06/25/2018 9:49 AM SUPERVISOR LAUNDRY documented as of this encounter Care Teams Senior Training Specialist Relationship Specialty Start Date End Date Vanda Guerrero MD PCP - General Internal Medicine 04/08/15 01/08/[address] [place] [address] [place] [address] Noreen Hills APRN LOAD MANAGER Assigned PCP 06/16/18 3305 [facility] [place] [address] documented as of this encounter
--- OUTSIDE RECORDS SUMMARY | 2022-05-09 13:26 | XMS_ITS | Encounter Summary ---
:1965 Author Organization [place] Address [address] [place] [address] Care Team Providers Name Role Phone Vanda Guerrero MD Primary Care Provider [phone] Noreen Hills APRN, CNP Unavailable [phone] Noreen Hills APRN, CNP Unavailable [phone] Reason for Referral Diagnostic Imaging Mammo - Closed Specialty Diagnoses / Procedures Referred By Contact Refer red To Contact Diagnoses Health care maintenance Noreen Hills, Procedures *MA Screening Digital Bilateral [place] [address] [facility] [place] [address] Referral ID Status Reason Start Date Expiration Date Visits Requ ested Visits Authorized [id number] Closed 07/25/2018 07/25/2019 1 1 C FIBRE DRAWER Reason for Visit Reason Comments Physical Encounter Details Date Type Department Care Team Description 07/25/2018 Office Visit [facility] Noreen Hills car e maintenance (Primary Dx); Clinic Pino Haley APRN Vitamin D deficiency; [address] [place] Fibromyalgia; [address] [facility] Migraine without status migr ainosus, not intractable, unspecified migraine type; [address] [facility] [address] Boss episode of recurrent major depr essive disorder (H) [place] [address] DAV[place] [id number] Social History Tobacco Use Types Packs/Day Years [...] How often do you attend christianity or holiness Patient refused 08/08/2019 services? Do [...] Comments Blood Pressure 116/64 07/25/2018 4:30 PM OPTIC FIBRE DRAWER Pulse 79 07/25/2018 4:30 PM OPTIC FIBRE DRAWER Temperature 36.4 ??C (97.5 ??F) 07/25/2018 4:30 PM OPTIC FIBRE DRAWER Respiratory Rate - - Oxygen Saturation 99% 07/25/2018 4:30 PM OPTIC FIBRE DRAWER Inhaled Oxygen Concentration - - Weight 82.1 kg (181 lb) 07/25/2018 4:30 PM OPTIC FIBRE DRAWER Height 157.5 cm (5' 2) 07/25/2018 4:30 PM OPTIC FIBRE DRAWER Body Mass Index 33.11 07/25/2018 4:30 PM OPTIC FIBRE DRAWER documented in this encounter Patient Instructions Patient InstructionsChristi Panda MA - 07/25/2018 4:20 PM CST Headaches: -Google rebound headaches -Consider magnesium OXALATE 500mg per day to reduce headaches -Consider B2 400mg -Aromatherapy -Guided relaxation -Stay on topiramate for now -Headache journal Fibro: Rheum nurse consultants Yoga Warm water pool-[facility] warm water pool Stop muscle relaxant cold turkey Depression: -Stop Citalopram -If you are still feeling good depression ecdeno in 1 month ok to decrease Duloxetine [...] eye doctor every 1 to 2 years. C FIBRE DRAWER documented in this encounter Progress Notes Noreen [...] NEG Negative Negative Test canceled - Lab border guard error(A) HPV 18 DNA NEG Negative Negative Test canceled - Lab border guard error(A) OTHER HR HPV NEG Negative Negative Test canceled - Lab border guard error(A) Reviewed and updated as needed this [...] better nutrition discussed. She is motivated. Recommended [place] warm water pool therapy -Start talk [...] Lung CA Screening Noreen Hills APRN CNP [facility] C FIBRE DRAWER documented in this encounter Plan of Treatment Not on filedocumented as of this encounter Results Fecal colorectal cancer screen (FIT) (01/12/2020 8:00 AM CDT) Analysis Performed At Patho logist Time Signature Occult Blood Negative NEG^Negati 01/18/2020 [facility] FIT ve 4:19 PM CDT [facility] Specimen Anatomical Collection Method Collection Time Receive d Time (Source) Location / / Volume Laterality Stool specimen 01/12/2020 8:00 AM 020 1:16 (specimen) CDT PM CDT Noreen Hills APRN, CNP LAB - STOOLS ORDERABLES Performing Organization Address City/State/ZIP Code Phon e Number [facility] [address] [place], [place] [id number] [place] [address] *MA Screening Digital Bilateral (09/03/2018 10:13 AM [...] Scattered fibroglandular densities. CLINICAL INFORMATION: Breast screening. ??[facility] care maintenance, 09/30/15, 04/16/15, 05/27/13 FINDINGS: Negative. Stable exam. Screeni ng exam in one year recommended. Procedure Note Stanislav Desir MD - 09/03/2018Formatt ing of this note might be different from the original. SCREENING MAMMOGRAM, BILATERAL, DIGITAL w/CAD, 09/03/2018 10:29 AM BREAST DENSITY: Scattered fibroglandular densities. CLINICAL INFORMATION: Breast screening. [facility], 09/30/15, 04/16/15, 05/27/13 FINDINGS: Negative. Stable exam. Screeni ng exam in one year recommended. IMPRESSION: BI-RADS CATEGORY: 1 - Negati ve. RECOMMENDED FOLLOW-UP: Annual Mammograph y. STANISLAV DESIR MD Noreen Hills APRN [facility] MAMMOGRAPHY ORDERAB LES documented in this encounter [...] Depression Total Score: 7 06/25/2018 9:49 AM OPTIC FIBRE DRAWER documented as of this encounter Care Teams Roll Inspector Relationship Specialty Start Date End Date Vanda Guerrero MD PCP - General Internal Medicine 04/08/15 01/08/[address] [place] [address] [place] [address] Noreen Hills APRN PCP - Assigned PCP 06/16/18 08/13/[address] [place] [address] Noreen Hills APRN Assigned PCP 06/16/[address] [place] [address] documented as of this encounter
--- OUTSIDE RECORDS SUMMARY | 2022-05-09 13:26 | XMS_ITS | Encounter Summary ---
:1965 Author Organization [place] Address [address] [place] [address] Care Team Providers Name Role Phone Vanda Guerrero MD Primary Care Provider [phone] Noreen Hills APRN COCOA PRESS OPERATOR Unavailable [phone] Noreen Hills APRN COCOA PRESS OPERATOR Unavailable [phone] Encounter Details Date Type Department Care Team [...] How often do you attend latter-day or alevism Patient refused 08/08/2019 services? Do [...] Depression Total Score: 7 06/25/2018 9:49 AM BLOOD DONOR RECRUITER documented as of this encounter Care Teams Director Talent Management Relationship Specialty Start Date End Date Vanda Guerrero MD PCP - General Internal Medicine 04/08/15 01/08/[address] [place] [address] [place] [address] Noreen Hills APRN PCP - Assigned PCP 06/16/18 08/13/[address] [place] [address] Noreen Hills APRN Assigned PCP 06/16/[address] [place] [address] documented as of this encounter
--- OUTSIDE RECORDS SUMMARY | 2022-05-09 13:26 | XMS_ITS | Encounter Summary ---
:1965 Author Organization [place] Address [address] [place] [address] Care Team Providers Name Role Phone Vanda Guerrero MD Primary Care Provider [phone] Noreen Hills APRN RESOURCE CENTER TEACHER Unavailable [phone] Noreen Hills APRN RESOURCE CENTER TEACHER Unavailable [phone] Reason for Visit Reason Comments Diabetes Encounter Details Date Type Department Care Team Description 06/25/2018 Office Visit [facility] Noreen Hills Abnormal l eg movement (Primary Dx); Clinic Pino Haley APRN Constipation, unspecified co nstipation type; [address] [place] RESOURCE CENTER TEACHER Anxiety; [address] [facility] Persistent insomnia; [address] [facility] [address] Moderate episode of recurrent major depr essive disorder (H); [place] [address] [place] [address] Fibromyalgia; [phone] Migraine withou t status migrainosus, not intractable, unspecified migraine type; (Work) Type 2 diabetes mellitus with complicati on, without long-term current use of insulin (H); [phone] Hyperlipidemia LDL goal <100; (Fax) Morbid obesity [...] How often do you attend jew or sikhism Patient refused 08/08/2019 services? Do you belong to any clubs or organizations such as No 08/08/2019 jew groups, [place]/Budists, fraternal or athletic groups, or school groups? [...] Comments Blood Pressure 114/58 06/25/2018 9:50 AM HARP REPAIRER Pulse 72 06/25/2018 9:50 AM HARP REPAIRER Temperature 36.7 ??C (98 ??F) 06/25/2018 9:50 AM HARP REPAIRER Respiratory Rate - - Oxygen Saturation 99% 06/25/2018 9:50 AM HARP REPAIRER Inhaled Oxygen Concentration - - Weight 82.1 kg (181 lb 1.6 oz) 06/25/2018 9:50 AM HARP REPAIRER Height 157.5 cm (5' 2) 06/25/2018 9:50 AM HARP REPAIRER Body Mass Index 33.12 06/25/2018 9:50 AM HARP REPAIRER documented in this encounter Patient Instructions Patient InstructionsMoliNoreen stone APRN CNP - 06/25/2018 9:40 AM HARP REPAIRER 1. See if covered. [facility] (Chronic Pain, Rheumatology, and Fibromayalgia) Lashawn Esquivel & Staci Arambula [phone] 2. Same dose of Cymbalta. Cut Celexa [...] Depression Total Score: 7 06/25/2018 9:49 AM HARP REPAIRER documented as of this encounter Care Teams Warper Tender Relationship Specialty Start Date End Date Vanda Guerrero MD PCP - General Internal Medicine 04/08/15 01/08/[address] [place] [address] [place] [address] Noreen Hills APRN PCP - Assigned PCP 06/16/18 08/13/[address] [place] [address] Noreen Hills APRN Assigned PCP 06/16/[address] [place] [address] documented as of this encounter
--- OUTSIDE RECORDS SUMMARY | 2022-05-09 13:26 | XMS_ITS | Encounter Summary ---
:1965 Author Organization [place] Address [address] [place] [address]. [place] [address] Care Team Providers Name Role Phone Vanda Guerrero MD Primary Care Provider [phone] Noreen Hills APRN MARKETING COMMUNICATIONS COORDINATOR Unavailable [phone] Reason for Visit Reason Onset Date Comments Refill Request 10/20/2018 loratadine-pseudoePH EDrine ([facility] RELIEF-D) 10- 240 MG per 24 hr tablet Encounter Details Date Type Department Care Team Description 10/20/2018 Refill [facility] Vanda Guerrero R efill Request Clinic iPno SALDANA (loratadine-pseudoePHED [address] [place] [address] [facility] rin ([facility] RELIEF-D) 10-240 MG per [address] [place] [address] 24 hr tablet) [place] [address] [phone] Social History Tobacco Use Types Packs/Day Years [...] How often do you attend shinto or worship Patient refused 08/08/2019 services? Do [...] She would like it faxed to the [facility] in [employer] in [place]. Faxing now. Emily Horn CMA on 10/01/2018 at 9:32 AM Telephone Encounter - Vanda Guerrero MD - 10/22/2018 12:52 PM CDT Script printed, signed, and in station out basket or on MA/MANAGER BUDGET/RN desk Vanda Guerrero MD Internal Medicine - Pediatrics Telephone Encounter - Kimberlyn Martinez RN - 10/21/2018 5:50 PM CDT Claritin D Routing refill request to provider for review/approval because: Drug not on the [facility] refill protocol Kimberlyn Martinez RN, [...] Total Score: 7 06/25/2018 9:49 AM SENIOR RESTAURANT MANAGER documented as of this encounter Care Teams Timber Surveyor Relationship Specialty Start Date End Date Vanda Guerrero MD PCP - General Internal Medicine 04/08/15 01/08/[address] [facility] [place] [address] Noreen Hills, SEAN MARKETING COMMUNICATIONS COORDINATOR Assigned PCP 06/16/[address] [facility] [address] [place], [place] [address] documented as of this encounter
--- OUTSIDE RECORDS SUMMARY | 2022-05-09 13:26 | XMS_ITS | Encounter Summary ---
:1965 Author Organization [place] Address [address] [place] [address]. [place] [address] Care Team Providers Name Role Phone Vanda Guerrero MD Primary Care Provider [phone] Noreen Hills APRN PLASTICS PATTERNMAKER Unavailable [phone] Reason for Visit Reason Comments Headache Encounter Details Date Type Department Care Team Description 08/29/2018 - Emergency [facility] [place], [place] Migrai ne without aura 08/30/2018 [facility] Emergency RayMD and with status Dept EMERGENCY PHYSICIANS migrainosus, not [address] [place], [place] [address] [facility] [place] [address] [place], [place] [id number] (Wo rk) Social History Tobacco Use Types [...] How often do you attend yazidi or restoration Patient refused 08/08/2019 services? Do [...] capsule 8 capsule 0 017 01/02/2019 D3) 11055 UNITS (50,000 Units) by capsuleIndications: mouth once a week Vitamin D deficiency DULoxetine (CYMBALTA) 30 TAKE 1 CAPSULE (30 180 capsule 3 01/02/2019 MG EC capsuleIndications: MG) BY MOUTH 2 Fibromyalgia TIMES DAILY fluticasone (FLONASE) 50 [place] 1-2 sprays 3 Bottle 3 06/1208/07/2019 MCG/ACT [...] migraines, worse tonight and now c/o nausea Tory Storey MD - 08/29/2018 11:38 PM CDT [...] or confusion and I doubt stroke or GLUE MILL OPERATOR tumor. I do not feel that [...] observations and the provider's statements to me. [facility] [place] Storey MD 09/01/18 [...] 08/29/2018 08/30/2018 sodium chloride 0.9% infusion 2357 ([facility] eled Entry - Provider: Orders Generic Provider [...] Depression Total Score: 7 06/25/2018 9:49 AM PROFESSOR OF LITERATURE documented as of this encounter Care Teams Reel Cutter Relationship Specialty Start Date End Date Vanda Guerrero MD PCP - General Internal Medicine 04/08/15 01/08/19 [address] [facility] [place] [address] Noreen Hills APRN PLASTICS PATTERNMAKER Assigned PCP 06/16/18 [address] [facility] [place] [address] documented as of this encounter
--- OUTSIDE RECORDS SUMMARY | 2022-05-09 13:26 | XMS_ITS | Encounter Summary ---
:1965 Author Organization [place] Address [facility] [place] [address] Care Team Providers Name Role Phone Vanda Guerrero MD Primary Care Provider [phone] Vanda Guerrero MD Unavailable Reason for Referral Care Coordination - Closed Specialty Diagnoses / Procedures Referred By Contact Refer red To Contact Diagnoses Acute bilateral low back pain without sciatica Noreen Hills APRN BI MANAGER [address] [place] [address] [place] [address] Referral ID Status Reason Start Date Expiration Date Visits Requ ested Visits Authorized [id number] Closed 04/09/2018 04/09/2019 1 1 Reason for Visit Reason Comments Back Pain Encounter Details Date Type Department Care Team Description 04/09/2018 Office Visit [facility] Noreen Hills Acute bila teral low back pain without sciatica (Primary Dx); Clinic Pino Haley APRN Symptomatic menopausal or fe male climacteric states; [address] [facility] Type 2 diabetes mellitus without complic ation, without long-term current use of insulin (H); [address] [place] Hyperlipidemia LDL goal <100 ; [address] [facility] Migraine without status migrainosus, not intractable, unspecified migraine type; [place] [address] [place] [address] Anxiety; [phone] Moderate episod e of recurrent major depressive disorder (H); (Work) Fibromyalgia; [phone] Encounter for s creening for HIV; (Fax) [...] How often do you attend gnosticist or christianity Patient refused 08/08/2019 services? 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 Date Jun 2017 Sees a specialist for [...] Signature Ferritin 55 8 - 252 04/09/2018 [facility] ng/mL 5:17 PM CDT [facility] Specimen Anatomical Collection Method Collection Time Receive d Time (Source) Location / / Volume Laterality Blood specimen 04/09/2018 11:07 8 (specimen) AM CDT 11:12 AM CDT Noreen Hills APRN, CNP LAB - BLOOD ORDERABLES Performing Organization Address City/State/ZIP Code Phon e Number [facility] [address] [place] [address] Albumin Random Urine Quantitative with Creat Ratio (04/09/2018 10:10 AM CDT) athologist Signature Creatinine 138 mg/dL 04/09/2018 [place] Urine 5:28 PM CDT [facility] Albumin Urine 8 mg/L 04/09/2018 [place] mg/L 5:33 PM CDT [facility] Albumin Urine 5.51 0 - 25 04/09/2018 [place] mg/g Cr mg/g Cr 5:33 PM CDT [facility] Specimen Anatomical Collection Method Collection Time Receive d Time (Source) Location / / Volume Laterality Urine specimen 04/09/2018 10:10 8 (specimen) AM CDT 10:15 AM CDT Noreen Hills APRN BI MANAGER LAB - URINE ORDERABLES Performing Organization Address City/State/ZIP Code Phon e Number [facility] [address] [place] [address] HIV Antigen Antibody Combo (04/09/2018 10:09 AM CDT) [facility] gist Method Time Signature HIV Antigen Nonreactive NR^Nonrea 04/10/2018 [facility] ctive 7:29 AM CDT [facility] Comment: HIV-1 p24 Ag & HIV-1/HIV-2 Ab N ot Detected Specimen Anatomical Collection Method Collection Time Receive d Time (Source) Location / / Volume Laterality Blood specimen 04/09/2018 10:09 8 (specimen) AM CDT 10:15 AM CDT Noreen Hills APRN BI MANAGER LAB - BLOOD ORDERABLES Performing Organization Address City/[facility]/ZIP Code Phon e Number [facility] [address] [place] [address] [place] (ABNORMAL) Basic metabolic panel (04/09/2018 10:09 AM CDT) Analysis Performed At [facility] logist Time Signature Sodium 143 133 - 144 04/09/2018 [place] mmol/L 2:28 PM CDT [facility] Potassium 4.2 3.4 - 5.3 04/09/2018 [place] mmol/L 2:28 PM CDT [facility] Chloride 109 94 - 109 04/09/2018 [place] mmol/L 2:28 PM CDT [facility] Carbon Dioxide 27 20 - 32 04/09/2018 [facility] mmol/L 2:28 PM CDT [facility] Anion Gap 7 3 - 14 04/09/2018 [place] mmol/L 2:28 PM CDT [facility] Glucose 133 (H) 70 - 99 04/09/2018 [place] mg/dL 2:28 PM CDT [facility] Comment: Fasting specimen Urea Nitrogen 10 7 - 30 mg/dL 04/09/2018 2:[address] [facility] Creatinine 0.77 0.52 - 1.04 mg/dL 04/09/2018 2:[address] [facility] GFR Estimate 78 >60 mL/min/1.7m2 04/09/2018 2:[address] [facility] Comment: Non GFR Calc GFR Estimate If >90 >60 mL/min/1.7m2 04/09/2018 2:28 P M [facility] Black [facility][1] Comment: GFR Calc Calcium 9.7 8.5 - 10.1 mg/dL 04/09/2018 2:[address] [facility] Specimen Anatomical Collection Method Collection Time Receive d Time (Source) Location / / Volume Laterality Blood specimen 04/09/2018 10:09 8 (specimen) AM CDT 10:15 AM CDT Noreen Hills EDGE STAINER MACHINE BI MANAGER LAB - BLOOD ORDERABLES Performing Organization Address City/State/ZIP Code Phon e Number [facility] [address] [place] [address] (ABNORMAL) Lipid panel reflex to direct LDL Fasting (04/09/2018 10:09 AM CDT) Analysis Performed At Patho logist Time Signature Cholesterol 175 <200 mg/dL 04/09/2018 [place] 2:28 PM [facility] Triglycerides 213 (H) <150 mg/dL 04/09/2018 [place] 2:28 PM [facility] Comment: Borderline high: ??150-199 mg/dl High: ? 200-499 mg/dl Very high: ? >499 mg/dl Fasting specimen HDL Cholesterol 45 (L) >49 mg/dL 04/09/2018 2:28 PM [facility][1] LDL Cholesterol 87 <100 mg/dL 04/09/2018 2:28 PM [facility] Calculated [facility][1] Comment: Desirable: <100 mg/dl Non HDL Cholesterol 130 (H) <130 mg/dL 04/09/2018 2:28 PM [facility] Comment: Above Desirable: ??130-159 mg/dl Borderline high: ??160-189 mg/dl High: ? 190-219 mg/dl Very high: ? >219 mg/dl Specimen Anatomical Collection Method Collection Time Receive d Time (Source) Location / / Volume Laterality Blood specimen 04/09/2018 10:09 8 (specimen) AM CDT 10:15 AM CDT Noreen Hills APRN, CNP LAB - BLOOD ORDERABLES Performing Organization Address City/[facility]/ZIP Code Phon e Number [facility] [place] [address] [place] [address] (ABNORMAL) Hemoglobin A1c (04/09/2018 10:09 AM CDT) P athologist Signature Hemoglobin A1C 6.1 (H) 0 - 5.6 % 04/09/2018 [place] 10:35 AM CDT [facility] Comment: Normal <5.7% Prediabetes 5.7-6.4% ??Diab etes 6.5% or higher - adopted from ADA consensus guidelines. Specimen Anatomical Collection Method Collection Time Receive d Time (Source) Location / / Volume Laterality Blood specimen 04/09/2018 10:09 8 (specimen) AM CDT 10:15 AM CDT Noreen Hills APRN, CNP LAB - BLOOD ORDERABLES Performing Organization Address City/[facility]/ZIP Code Phon e Number [facility] [address] [place] [address] documented in this encounter Visit Diagnoses Diagnosis [...] documented as of this encounter Care Teams Income Tax Investigator Relationship Specialty Start Date End Date Vanda Guerrero MD PCP - General Internal Medicine 04/08/15 01/08/19 [address] [facility] [place] [address] Vanda Guerrero MD PCP - Assigned PCP 07/24/16 06/15/18 [address] [facility] [place] [address] documented as of this encounter
--- OUTSIDE RECORDS SUMMARY | 2022-05-09 13:26 | XMS_ITS | Encounter Summary ---
:1965 Author Organization [place] Address [address] [place] [address]. [place] [address] Care Team Providers Name Role Phone Vanda Guerrero MD Primary Care Provider [phone] Vanda Guerrero MD Unavailable Reason for Visit Reason Comments Medication Refill methocarbamol (ROBAXIN) 500 MG tablet Encounter Details Date Type Department Care Team Description 05/28/2018 Refill [facility] Vanda Guerrero M edication Refill Clinic Pino SALDANA (methocarbamol [address] [facility] ([facility]) 500 MG [facility] [address] tablet) [address] [place] [address] [place] [address] [phone] Social History Tobacco Use Types Packs/Day Years [...] How often do you attend jainism or baptist Patient refused 08/08/2019 services? Do [...] no refill protocol information for this order GHT UNLOADER documented in this encounter Plan of Treatment Not on filedocumented as of this encounter Visit Diagnoses Diagnosis Muscle spasm Spasm of muscle documented in this encounter Additional Health Concerns Assessment Noted Time PHQ-9 Depression Total Score: 8 02/18/2018 7:04 AM CDT documented as of this encounter Care Teams Sap Portal Architect Relationship Specialty Start Date End Date Vanda Guerrero MD PCP - General Internal Medicine 04/08/15 01/08/19 [address] [facility] [place] [address] Vanda Guerrero MD PCP - Assigned PCP 07/24/16 06/15/18 [address] [facility] [place] [address] documented as of this encounter
--- OUTSIDE RECORDS SUMMARY | 2022-05-09 13:26 | XMS_ITS | Encounter Summary ---
:1965 Author Organization [place] Address [address] [place] [address] Care Team Providers Name Role Phone Vanda Guerrero MD Primary Care Provider [phone] Vanda Guerrero MD Unavailable JeanaNoreen girard PAD MACHINE [facility] SH[facility] Unavailable JeanaNoreen PAD MACHINE [facility] Unavailable JeanaNoreen PAD MACHINE [facility] Primary Care Provider Kalyan Galvan Unavailable Unavailable Lashae Trevino [facility] Unavailable [phone] Eduardo Sharma MD Unavailable Rios Monteiro MD Unavailable Marcelo Artis-C Unavailable [phone] Rodrigo ManC Unavailable Reason for Visit Reason Onset Date Comments Refill Request 03/04/2018 loratadine-pseudoePH EDrine ([facility] RELIEF-D) 10- 240 MG per 24 hr tablet Encounter Details Date Type Department Care Team Description 03/04/2018 Refill [facility] Vanda Guerrero R efill Request Clinic [facility]ino SALDANA (loratadine-pseudoePHED [address] [facility] daniel ([facility] DR RELIEF-D) 10-240 MG per [address] [place] [address] 24 hr tablet) [place] [address] [phone] Social History Tobacco Use Types Packs/Day Years [...] How often do you attend adventist or yazidi Patient refused 08/08/2019 services? Do [...] and in station out basket or on MA/WIRE ROLLER/RN desk Telephone Encounter - Kartik Javier - [...] as of this encounter Care Teams Client Analyst Relationship Specialty Start Date End Date Vanda Guerrero, PCP - General Internal Medicine 04/08/15 01/08/[address] [place] [address] [place] [address] Vanda Guerrero, PCP - Assigned PCP 07/24/16 06/15/[address] [place] [address] [place] [address] Noreen Hills PCP - Assigned PCP 06/16/18 08/13/18 [facility] [address] [place] [address] [place] [address] Noreen Hills PCP - General Nurse Practitioner 01/09/19 12/12/21 SEAN Haley [facility] [address] [place] [address] [place] [address] Noreen Hills Assigned PCP 06/16/18 SEAN H[facility] [address] [place] [address] [place] [address] Kalyan Galvan Personal Advocate & 08/08/19 Liaison (PAL) Lashae Trevino Pharmacist Pharmacist 10/14/19 12/01/20 Kiran [facility] [address] [id number] Eduardo Sharma MD Assigned Sleep Provider 04/02/20 05/07/21 [address] [facility] [address] [place] [address] Rios Monteiro MD Assigned Musculoskeletal 04/02/20 08/24/20 20226 [employer] [facility] Provider ROSHAN [address] [place] [address] Marcelo Artis Assigned Musculoskeletal 08/25/20 08/20/21 MIKAYLA Nuno Provider [address] [facility] [address] [place] [address] Rodrigo Man Assigned Surgical 08/25/2011/27 MIKAYLA Lacy Provider [facility] 450 [place], [place] [address] documented as of this encounter
--- OUTSIDE RECORDS SUMMARY | 2022-05-09 13:26 | XMS_ITS | Encounter Summary ---
:1965 Author Organization [place] Address [address] [place] [address] Care Team Providers Name Role Phone Vanda Guerrero MD Primary Care Provider [phone] Noreen Hills APRN TABLET MACHINE OPERATOR Unavailable [phone] Noreen Hills APRN, CNP Primary Care Provider [phone] Reason for Visit Reason Comments Medication Refill Encounter Details Date Type Department Care Team Description 01/07/2019 Refill [facility] Noreen Hills, Medication Refill Pino ESTRADA TABLET MACHINE OPERATOR 3303 [facility] [address] [place] [address] [address] [place] [address] [place] [address] [phone] Social History Tobacco Use Types Packs/Day Years [...] often do you attend oriental orthodox or jain Patient refused 08/08/2019 services? Do [...] as of this encounter Care Teams Patient Transport Orderly Relationship Specialty Start Date End Date Vanda Guerrero MD PCP - General Internal Medicine 04/08/15 01/08/[address] [place] [address] [place] [address] Noreen Hills APRN TABLET MACHINE OPERATOR PCP - General Nurse Practitioner 01/09/19 12/12/[address] [place] [address] [place] [address] Noreen Hills APRN TABLET MACHINE OPERATOR Assigned PCP 06/16/[address] [place] [address] [place] [address] documented as of this encounter
--- OUTSIDE RECORDS SUMMARY | 2022-05-09 13:26 | XMS_ITS | Encounter Summary ---
:1965 Author Organization [place] Address [address] [place] [address] Care Team Providers Name Role Phone Vanda Geurrero MD Primary Care Provider [phone] Noreen Hills WIRE CHIEF AUTOBODY TECHNICIAN Unavailable [phone] Reason for Visit Diagnostic Imaging Mammo - Closed Specialty Diagnoses / Procedures Referred By Contact Refer red To Contact Diagnoses Health care maintenance Noreen Hills, Procedures *MA Screening Digital Bilateral WIRE CHIEF AUTOBODY TECHNICIAN 0718 [facility] [place] [address] Referral ID Status Reason Start Date Expiration Date Visits Requ ested Visits Authorized [id number] Closed 07/25/2018 07/25/2019 1 1 Encounter Details Date Type Department Care Team Description 09/03/2018 Ancillary Procedure M [facility] care Clinic Pino maintenance [facility] [place] [address] [place] [phone] Social History Tobacco Use Types Packs/Day Years [...] How often do you attend tenriism or caodaism Patient refused 08/08/2019 services? Do [...] fibroglandular densities. CLINICAL INFORMATION: Breast screening. [facility], 09/30/15, 04/16/15, 05/27/13 FINDINGS: Negative. Stable exam. Screeni ng exam in one year recommended. IMPRESSION: BI-RADS CATEGORY: 1 - Negati ve. RECOMMENDED FOLLOW-UP: Annual Mammograph y. STANISLAV DESIR MD Noreen Hills APRN AUTOBODY TECHNICIAN IMG MAMMOGRAPHY ORDERAB LES documented in this encounter Visit Diagnoses Diagnosis Health care maintenance Unspecified general medical examination documented in this encounter Additional Health Concerns Assessment Noted Time PHQ-9 Depression Total Score: 7 06/25/2018 9:49 AM PAINT SPRAYING MACHINE OPERATOR HELPER documented as of this encounter Care Teams Fleet Maintenance Manager Relationship Specialty Start Date End Date Vanda Guerrero MD PCP - General Internal Medicine 04/08/15 01/08/[address] [place] [address] [place] [address] Noreen Hills APRN CNP Assigned PCP 06/16/[address] [place] [address] [place] [address] documented as of this encounter
--- OUTSIDE RECORDS SUMMARY | 2022-05-09 13:26 | XMS_ITS | Encounter Summary ---
:1965 Author Organization [place] Address [facility] [place] [place] [address] Care Team Providers Name Role Phone Vanda Guerrero MD Primary Care Provider [phone] Noreen Hills APRN FARM MACHINERY SET UP MECHANIC Unavailable [phone] Reason for Referral Consultation (Routine) - Closed Specialty Diagnoses / Procedures Referred By Contact Refer red To Contact Diagnoses Fibromyalgia Kavin Fitzgerald ARTHRITIS & RHEUMATOLOGY MIKAYLA Fernandez CON [address] [facility] [place] [address] [place] [address] Phone: [phone] Referral ID Status Reason Start Date Expiration Date Visits Requ ested Visits Authorized [id number] Closed 11/13/2018 11/13/2019 1 1 Reason for Visit Reason Comments Joint Pain Encounter Details Date Type Department Care Team Description 11/13/2018 Office Visit [facility] Kavin Fitzgerald Fibr omyalgia (Primary Clinic Pino Fernandez PA-C Dx) [address] [place] [address] [facility] [address] [place] [place] [address] [place] [address] Social History Tobacco Use [...] How often do you attend mandaeism or presybeterian Patient refused 08/08/2019 services? Do [...] offered to her. 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 Review of Systems ROS COMP: otherwise NEGATIVE Objective BP 130/64 (BP Location: Right arm, Patient Position: Chair, Cuff Size: Adult Regular) Pulse 92 Temp 97.4 ??F (36.3 ??C) (Tympanic) Ht 1.575 m (5' 2) Wt 83.9 kg (185 lb) LMP 10/30/2011 UwS414% BMI 33.84 kg/m?? Body mass index is [...] MG tablet, RHEUMATOLOGY REFERRAL Kavin Fitzgerald PA-C [facility] [place] documented in this encounter Plan of Treatment Scheduled Referrals Name Type Priority Associated Diagnoses Order [facility] REFERRAL Referral Routine Fibromyalgia Ordere d: 11/13/2018 documented as of this encounter Visit Diagnoses Diagnosis Fibromyalgia - Primary Mylagia and myositis, unspecified documented in this encounter Additional Health Concerns Assessment Noted Time PHQ-9 Depression Total Score: 7 06/25/2018 9:49 AM POSTING MACHINE OPERATOR documented as of this encounter Care Teams Model Engine Mechanic Relationship Specialty Start Date End Date Vanda Guerrero MD PCP - General Internal Medicine 04/08/15 01/08/19 3[address] [facility] [place] [address] Noreen Hills APRN FARM MACHINERY SET UP MECHANIC Assigned PCP 06/16/18 3305 [facility] [place] [address] documented as of this encounter
--- OUTSIDE RECORDS SUMMARY | 2022-05-09 13:26 | XMS_ITS | Encounter Summary ---
:1965 Author Organization [place] Address [address] [place] [address]. [place] [address] Care Team Providers Name Role Phone Vanda Guerrero MD Primary Care Provider [phone] Noreen Hills APRN RESIDENT HALL DIRECTOR Unavailable [phone] Reason for Referral [facility] Physical Therapy (Routine) - Closed Specialty Diagnoses / Procedures Referred By Contact Refer red To Contact Diagnoses Acute pain of right shoulder Noreen Hills APRN [facility] 3305 [facility] [place] [address] Referral ID Status Reason Start Date Expiration Date Visits Requ ested Visits Authorized [id number] Closed 01/02/2019 06/10/2019 30 30 onsultation (Routine) - Closed Specialty Diagnoses / Procedures Referred By Contact Refer red To Contact Podiatry Diagnoses Left foot pain Noreen Hills M [facility] LEATHER GOODS MAKERAngella [place] 3[address] [facility] [address] [place] [phone] Fax: Referral ID Status Reason Start Date Expiration Date Visits Requ ested Visits Authorized [id number] Closed 01/02/2019 01/02/2020 1 1 ision Services (Routine) - Closed Specialty Diagnoses / Procedures Referred By Contact Refer red To Contact Diagnoses Type 2 diabetes mellitus with complication, without long-term current use of insulin (H) Noreen Hills M [facility] [place] [address] [place] [address] [address] [place] [address] Phone: Fax: Referral ID Status Reason Start Date Expiration Date Visits Requ ested Visits Authorized [id number] Closed 01/02/2019 01/02/2020 1 1 Reason for Visit Reason Comments Shoulder Pain Encounter Details Date Type Department Care Team Description 01/02/[address] [facility] Noreen Hills APRN CNP [address] [place] [address] [place] [address] Fibromyalgia (Primary Dx); Clinic Pino 3a, Remberto Rn Pal Acute pain of right shoulder; [address] [place] [address] Left foot pain; [facility] Type 2 diabetes mellitus wit h complication, [...] How often do you attend mormonism or confucianist Patient refused 08/08/2019 services? Do [...] and Fibromayalgia) Lashawn Esquivel & Staci Arambula [phone] Have hubby call [facility] and ask about warm pool therapy or [...] warm water pool therapy at the in [place] (M25.511) Acute pain of right shoulder Comment: [...] Time Signature Occult Blood Negative NEG^Negati 02/01/2019 [facility] FIT ve 10:58 AM CDT [facility] Specimen Anatomical Collection Method Collection Time Receive d Time (Source) Location / / Volume Laterality Stool specimen 01/25/2019 7:35 AM 019 (specimen) CDT 10:01 AM CDT Noreen Hills APRN RESIDENT HALL DIRECTOR LAB - STOOLS ORDERABLES Performing Organization Address City/State/ZIP Code Phon e Number [facility] [address] [place], [place] [id number] [place] [address] (ABNORMAL) Hemoglobin A1c (01/02/2019 9:56 AM CDT) P athologist Signature Hemoglobin A1C 6.2 (H) 0 - 5.6 % 01/02/2019 [facility] 10:24 AM CDT [facility] Comment: Normal <5.7% Prediabetes 5.7-6.4% ??Diab etes 6.5% or higher - adopted from ADA consensus guidelines. Specimen Anatomical Collection Method Collection Time Receive d Time (Source) Location / / Volume Laterality Blood specimen 01/02/2019 9:56 AM 019 (specimen) CDT 10:01 AM CDT Noreen Hills APRN, CNP LAB - BLOOD ORDERABLES Performing Organization Address City/State/ZIP Code Phon e Number [facility] [place] [address] [facility] [place] [address] [phone] documented in this encounter Visit Diagnoses Diagnosis [...] as of this encounter Care Teams College Athlete Relationship Specialty Start Date End Date Vanda Guerrero MD PCP - General Internal Medicine 04/08/15 01/08/[address] [place] [address] [place] [address] Noreen Hills APRN CNP Assigned PCP 06/16/[address] [place] [address] [place] [address] documented as of this encounter
--- OUTSIDE RECORDS SUMMARY | 2022-05-09 13:27 | XMS_ITS | Encounter Summary ---
:1965 Author Organization [place] Address [address] [place] [address] Care Team Providers Name Role Phone Vanda Guerrero MD Primary Care Provider [phone] Vanda Guerrero MD Unavailable Reason for Visit Reason Comments Medication Refill citalopram (CELEXA) 20 MG ta blet-DUPLICATE Encounter Details Date Type Department Care Team Description 06/27/2017 Refill [facility] Vanda Guerrero M edication Refill Clinic Pino SALDANA (citalopram (CELEXA) 20 [address] [place] 3305 [facility] MG ta blet-DUPLICATE) [facility] [address] [place] [address] [place] [id number] [phone] Social History Tobacco Use Types Packs/Day Years [...] How often do you attend voodoo or yarsanism Patient refused 08/08/2019 services? Do [...] CST Sent back as duplicate. Kirsten Casillas, logging truck driver Nurse OGRAPH FINISHER Telephone Encounter - Marisa Matthew - 06/27/2017 7:59 AM CST Duplicate. citalopram (CELEXA) 20 MG tablet was filled on 06/12/2017, qty 135 with 3 refills. OGRAPH FINISHER documented in this encounter Plan of Treatment Not on filedocumented as of this encounter Visit Diagnoses Diagnosis Anxiety Anxiety state, unspecified documented in this encounter Additional Health Concerns Assessment Noted Time PHQ-9 Depression Total Score: 12 06/12/2017 1:02 PM CS T documented as of this encounter Care Teams Impregnator And Drier Helper Relationship Specialty Start Date End Date Vanda Guerrero MD PCP - General Internal Medicine 04/08/15 01/08/[address] [facility] [address] [place], [place] [id number] Vanda Guerrero MD PCP - Assigned PCP 07/24/16 06/15/18 3305 [facility] [place] [address] documented as of this encounter
--- OUTSIDE RECORDS SUMMARY | 2022-05-09 13:27 | XMS_ITS | Encounter Summary ---
:1965 Author Organization [place] Address [address] [place] [address] Care Team Providers Name Role Phone Vanda Guerrero MD Primary Care Provider [phone] Vanda Guerrero MD Unavailable JeanaNoreen girard CUSTOMER SERVICE CASHIER REINFORCING IRON AND REBAR WORKERS Unavailable [phone] JeanaNoreen girard CUSTOMER SERVICE CASHIER REINFORCING IRON AND REBAR WORKERS Unavailable [phone] JaenaNoreen girard CUSTOMER SERVICE CASHIER REINFORCING IRON AND REBAR WORKERS Primary Care Provider [phone] Kalyan Galvan Unavailable Unavailable Lashae Trevino [facility] Unavailable [phone] Eduardo Sharma MD Unavailable Rios Monteiro MD Unavailable Marcelo Artis PA-C Unavailable [phone] Rodrigo Man-C Unavailable [phone] Reason for Visit Reason Comments Medication Refill zolpidem (AMBIEN) 5 MG table t Encounter Details Date Type Department Care Team Description 02/20/2018 Refill [facility] Vanda Guerrero M edication Refill Clinic Pino SALDANA (zolpidem (AMBIEN) 5 MG [address] [place] 3305 [facility] table t) [facility] [address] [place] [address] [place] [address] [phone] Social History Tobacco Use Types Packs/Day Years [...] How often do you attend presybeterian or anabaptism Patient refused 08/08/2019 services? Do [...] and in station out basket or on MA/ASSOCIATE PROFESSOR OF COUNSELING/RN desk Telephone Encounter - Gayathri Mcallister RN - 02/21/2018 3:33 PM CDT FRYLINE ATTENDANT checked: patient refilled: 06/12, 07/07 and [...] documented as of this encounter Care Teams Email Marketing Coordinator Relationship Specialty Start Date End Date Vanda Guerrero, PCP - General Internal Medicine 04/08/15 01/08/[address] [place] [address] [place] [phone] Vanda Guerrero, PCP - Assigned PCP 07/24/16 [facility]15[facility] [place] [address] Noreen Hills PCP - Assigned PCP 06/16/18 08/13/18 SEAN Haley [employer] [employer] 3305 [facility] [place] [address] Noreen Hills PCP - General Nurse Practitioner 01/09/19 12/12/21 SEAN Haley [employer] 3305 [facility] [place] [address] Noreen Hills Assigned PCP 06/16/18 SEAN Haley [employer] [employer] 3[address] [facility] [place] [address] Kalyan Galvan Personal Advocate & 08/08/19 Liaison (PAL) Lashae Trevino Pharmacist Pharmacist 10/14/19 12/01/20 Kiran [facility] [address] [place] [id number] Eduardo Sharma MD Assigned Sleep Provider 04/02/20 05/07/21 [address] [place] [address] Rios Monteiro MD Assigned Musculoskeletal 04/02/20 08/24/20 [address] [facility] Provider ROSHAN [address] [place] [address] Marcelo Artis Assigned Musculoskeletal 08/25/20 08/20/21 MIKAYLA Nuno Provider [address] [address] [place] [address] Rodrigo Man Assigned Surgical 08/25/2011/27 MIKAYLA Lacy Provider [address] [place] [address] documented as of this encounter
--- OUTSIDE RECORDS SUMMARY | 2022-05-09 13:27 | XMS_ITS | Encounter Summary ---
:1965 Author Organization [place] Address [address] [place] [address] Care Team Providers Name Role Phone Vanda Guerrero MD Primary Care Provider [phone] Vanda Guerrero MD Unavailable Reason for Visit Reason Onset Date Comments Refill Request 02/15/2018 methocarbamol (ROBAX IN) 500 MG tablet Encounter Details Date Type Department Care Team Description 02/15/[address] [facility] Vanda Guerrero R efill Request Clinic [place] SALDANA (methocarbamol [address] [place] 3305 [facility] ([facility] JESS[facility]) 500 MG [facility] [address] tablet) [address] [place] [address] [place] [address] [phone] Social History Tobacco Use Types Packs/Day Years [...] often do you attend latter day or rastafarian Patient refused 08/08/2019 services? Do [...] review/approval because: Drug not on the [facility] Telephone Encounter - Efren Pryor [...] as of this encounter Care Teams Metal Or Wood Blocker Relationship Specialty Start Date End Date Vanda Guerrero MD PCP - General Internal Medicine 04/08/15 01/08/[address] [place] [address] [place] [address] Vanda Guerrero MD PCP - Assigned PCP 07/24/16 06/15/[address] [place] [address] [place] [address] documented as of this encounter
--- OUTSIDE RECORDS SUMMARY | 2022-05-09 13:27 | XMS_ITS | Encounter Summary ---
:1965 Author Organization [place] Address [address] [place] [address] Care Team Providers Name Role Phone Vanda Guerrero MD Primary Care Provider [phone] Vanda Guerrero MD Unavailable Reason for Visit Reason Comments Medication Refill SUMAtriptan (IMITREX) 25 MG tablet Encounter Details Date Type Department Care Team Description 07/13/[address] [facility] Vanda Guerrero M edication Refill Clinic [place]ino SALDANA (SUMAtriptan (IMITREX) [address] [place] 3301 [facility] 25 MG tablet) [facility] [address] [place] [address] [place] [address] [phone] Social History Tobacco Use Types Packs/Day Years [...] How often do you attend pentecostal or judaism Patient refused 08/08/2019 services? Do [...] Mimi Roberts RN - 07/13/2017 12:25 PM PERSONAL BANKER BP Readings from Last 3 Encounters: 07/10/17 118/72 06/27/17 124/77 06/12/17 116/72 Prescription approved per [facility] Refill Protocol. Kassie Roberts RN ONAL BANKER Telephone Encounter - Kartik Javier - 07/13/2017 [...] no refill protocol information for this order ONAL BANKER documented in this encounter Plan of Treatment Not on filedocumented as of this encounter Visit Diagnoses Diagnosis Migraine without status migrainosus, not intractable, unspecified migraine type documented in this encounter Additional Health Concerns Assessment Noted Time PHQ-9 Depression Total Score: 12 06/12/2017 1:02 PM CS T documented as of this encounter Care Teams Medical Director/Head Team Physician Relationship Specialty Start Date End Date Vanda Guerrero MD PCP - General Internal Medicine 04/08/15 01/08/19 3305 [facility] [place] [address] Vanda Guerrero MD PCP - Assigned PCP 07/24/16 06/15/18 3305 [facility] [place] [address] documented as of this encounter
--- OUTSIDE RECORDS SUMMARY | 2022-05-09 13:27 | XMS_ITS | Encounter Summary ---
:1965 Author Organization [place] Address [address] [place] [address] Care Team Providers Name Role Phone Vanda Guerrero MD Primary Care Provider [phone] Vanda Guerrero MD Unavailable Reason for Visit Reason Onset Date Comments Refill Request 12/04/2017 metFORMIN (GLUCOPHAG E) 500 MG tablet Encounter Details Date Type Department Care Team Description 12/04/2017 Refill [facility] Vanda Guerrero R efill Request Clinic [place]ino SALDANA (metFORMIN (GLUCOPHAGE) [address] [place] 3305 [facility] 500 M G tablet) [facility] [address] [place] [address] [place] [address] [phone] Social History Tobacco Use Types Packs/Day Years [...] How often do you attend yarsanism or rastafari Patient refused 08/08/2019 services? Do [...] Requests new Rx, new pharmacy location at [address] [address] documented in this encounter Plan of Treatment Not on filedocumented as of this encounter Visit Diagnoses Diagnosis Type 2 diabetes mellitus without complic ation, without long-term current use of insulin (H) documented in this encounter Additional Health Concerns Assessment Noted Time PHQ-9 Depression Total Score: 12 06/12/2017 1:02 PM CS T documented as of this encounter Care Teams Rotoformer Backtender Relationship Specialty Start Date End Date Vanda Guerrero MD PCP - General Internal Medicine 04/08/15 01/08/19 3305 [facility] [place] [address] Vanda Guerrero MD PCP - Assigned PCP 07/24/16 06/15/18 3305 [facility] [place] [address] documented as of this encounter
--- OUTSIDE RECORDS SUMMARY | 2022-05-09 13:27 | XMS_ITS | Encounter Summary ---
:1965 Author Organization [facility] Address [address] [place] [address]. [place] [address] Care Team Providers Name Role Phone Vanda Guerrero MD Primary Care Provider [phone] Vanda Guerrero MD Unavailable Reason for Visit Reason Onset Date Comments Procedure 06/29/2017 cervical facets vs. FABIAN Encounter Details Date Type Department Care Team Description 06/29/2017 Telephone [facility] Pain Management Procedu re (cervical Pain Management Program, [place] facets vs. FABIAN) [address] [place] [address] Social History Tobacco Use Types [...] How often do you attend jainism or buddhism Patient refused 08/08/2019 services? Do you belong to any clubs or organizations such as ROOOMERS 08/08/2019 jainism groups, unions, fraternal or athletic [...] be done at which interventional clinic site? [facility] Procedure ordered by Rosalia Main Procedure ordered? cervical facets vs. FABAIN What insurance would patient like us to [...] YES, do NOT schedule and route to spool cleaner hand Is an pan cleaner needed? No Patient has a drive home? (mandatory) YES: Is patient taking any blood thinners (plavix, coumadin, jantoven, warfarin, heparin, pradaxa or dabigatran )? No If hold needed, do NOT schedule, route to spool cleaner hand Is patient taking any aspirin products? Yes - Pt takes 81 mg daily; instructed to hold 6 day(s) prior to procedure. ?? If more than 325mg/day do NOT schedule; route to spool cleaner hand ?? For CERVICAL procedures, hold all aspirin [...] YES, do NOT schedule and route to spool cleaner hand Are you able to get on and off an exam table with minimal or no assistance? Yes If NO, do NOT schedule and route to spool cleaner hand Are you able to roll over and lay on your stomach with minimal or no assistance? Yes If NO, do NOT schedule and route to spool cleaner hand Any allergies to contrast dye, iodine, shellfish, or numbing and steroid medications? No If YES, route to spool cleaner hand AND add allergy information to appointment notes [...] years? Yes ?? Was MRI done at [facility]? Yes ?? If not, where was it done? N/A ?? If MRI was not done at [facility], [facility] or [facility] Imaging do NOT schedule and [...] the patient have any questions? RAJENDRA Guevara [facility] R QUALITY CONTROL ENGINEER documented in this encounter Plan of Treatment Not on filedocumented as of this encounter Visit Diagnoses Not on filedocumented in this encounter Additional Health Concerns Assessment Noted Time PHQ-9 Depression Total Score: 12 06/12/2017 1:02 PM CS T documented as of this encounter Care Teams Blueprint Cutter Relationship Specialty Start Date End Date Vanda Guerrero MD PCP - General Internal Medicine 04/08/15 01/08/19 [address] [facility] [place] [address] Vanda Guerrero MD PCP - Assigned PCP 07/24/16 06/15/18 [address] [facility] [place] [id number] documented as of this encounter
--- OUTSIDE RECORDS SUMMARY | 2022-05-09 13:27 | XMS_ITS | Encounter Summary ---
:1965 Author Organization [facility] Address [address] [place] [address] Care Team Providers Name Role Phone Vanda Guerrero MD Primary Care Provider [phone] Vanda Guerrero MD Unavailable Reason for Referral - Closed Specialty Diagnoses / Procedures Referred By Contact Refer red To Contact Diagnoses Cervical facet joint syndrome Rosalia Main, [facility] [address] [facility] [address] [place] [address] Referral ID Status Reason Start Date Expiration Date Visits Requ ested Visits Authorized [id number] Closed 06/29/2017 06/29/2018 1 1 LOPER PROVER UPHOLSTERING Reason for Visit Reason Onset Date Comments Results 06/29/2017 Encounter Details Date Type Department Care Team Description 06/29/2017 Telephone [facility] Angella Main, Results [facility] LETTERPRESS SETTER SHIPPING PROCESSOR [address] [facility] [address] [place] [address] [address] [place], [place] [address] (Wo rk) Social History [...] How often do you attend methodist or zoroastrianism Patient refused 08/08/2019 services? Do [...] Main APRN CNP - 06/29/2017 2:11 PM DEVELOPER PROVER UPHOLSTERING Pt contacted with MRI results. Fusion solid. She was very concerned about her C1-2 and was told years ago there was something wrong. Her C1-2 per MRI is normal. She does have facet degeneration on the right. Recc. Injections and PT. She is open to this. Rosalia Main SHIPPING PROCESSOR [facility] [address] [place] [address]. [address] Tel. [phone] LOPER PR[place] UPHOLSTERING documented in this encounter Plan of Treatment [...] as of this encounter Care Teams Mechanical Systems Engineer Relationship Specialty Start Date End Date Vanda Guerrero MD PCP - General Internal Medicine 04/08/15 01/08/[address] [place] [address] [place] [address] Vanda Guerrero MD PCP - Assigned PCP 07/24/16 06/15/[address] [place] [address] [place] [address] documented as of this encounter
--- OUTSIDE RECORDS SUMMARY | 2022-05-09 13:27 | XMS_ITS | Encounter Summary ---
:1965 Author Organization [facility] Address [address] [place] [address] Care Team Providers Name Role Phone Vanda Guerrero MD Primary Care Provider Vanda Guerrero MD Unavailable Reason for Referral Diagnostic Imaging MRI - Closed Specialty Diagnoses / Procedures Referred By Contact Refer red To Contact Radiology. Diagnoses Rosalia Pagan APRN Mri Procedures MR Cervical Spine w/o Contrast BARKEEPER [address] [facility] [place], [place] [address] [place] [address] [address] [place] [address] Referral ID Status Reason Start Date Expiration Date Visits Requ ested Visits Authorized [id number] Closed 06/27/2017 06/27/2018 1 1 ICATIONS SPECIALIST Reason for Visit Diagnostic Imaging MRI - Closed Specialty Diagnoses / Procedures Referred By Contact Refer red To Contact Radiology. Diagnoses Rosalia Pagan APRN Rh Mri Procedures MR Cervical Spine w/o Contrast BARKEEPER [address] [facility] [place], [place] [address] [place] [address] [address] [place] [address] Referral ID Status Reason Start Date Expiration Date Visits Requ ested Visits Authorized [id number] Closed 06/27/2017 06/27/2018 1 1 Encounter Details Date Type Department Care Team Description 06/28/[address] [facility] Angella Main barbra Karthik, Cervicalgia Imaging TABLE AND DESK FINISHER BARKEEPER [address] [facility] [place], [place] [address] [facility] [address] [address] [place] [address] (Wo rk) Social History Tobacco Use Types [...] How often do you attend islam or baptist Patient refused 08/08/2019 services? Do [...] capsule 8 capsule 0 017 01/02/2019 D3) 58869 UNITS (50,000 Units) by capsuleIndications: mouth once [...] or female climacteric states fluticasone (FLONASE) [address] [place] 1-2 sprays 3 Bottle 3 06/1208/07/2019 MCG/ACT [...] Cervicalgia Resu lts for this W/O CONTRAST APPLICATIONS SPECIALIST procedure are i n the results section. documented in this encounter Results MR Cervical Spine w/o Contrast (06/28/2017 1:36 PM APPLICATIONS SPECIALIST) Anatomical Region Laterality Modality Spine, SUBRAD MR NEURO, UMP MR SPINE, RAD MR Magnetic Resonance Specimen (Source) Anatomical Location Collection Method / Collectio n Time Received Time / Laterality Volume Impressions 06/28/2017 2:37 PM APPLICATIONS SPECIALIST IMPRESSION: ?? 1. Anterior fusion at C5-C6 [...] MILAGROS JC MD Narrative 06/28/2017 2:37 PM APPLICATIONS SPECIALIST MRI CERVICAL SPINE WITHOUT CONTRAST June 28, [...] level. MILAGROS JC MD Rosalia Angeles Etelvina TABLE AND DESK FINISHER BARKEEPER IMG MRI ORDERABLES documented in this encounter Visit Diagnoses Diagnosis Cervicalgia documented in this encounter Additional Health Concerns Assessment Noted Time PHQ-9 Depression Total Score: 12 06/12/2017 1:02 PM CS T documented as of this encounter Care Teams Expander Relationship Specialty Start Date End Date Vanda Guerrero MD PCP - General Internal Medicine 04/08/15 01/08/19 [address] [facility] [place] [id number] Vanda Guerrero MD PCP - Assigned PCP 07/24/16 06/15/18 [address] [facility] [place] [id number] documented as of this encounter
--- OUTSIDE RECORDS SUMMARY | 2022-05-09 13:27 | XMS_ITS | Encounter Summary ---
:1965 Author Organization [facility] Address [address] [place] [address] Care Team Providers Name Role Phone Vanda Guerrero MD Primary Care Provider [phone] Vanda Guerrero MD Unavailable Encounter Details Date Type Department Care Team Description 07/27/2017 Therapy Visit [facility] Serena Blount rvicalgia (Primary Dx); Medicine Pino Angeles, MARICARMEN Cervical segment dysfunction [address] [facility] [address] [place] [address] [address] [place] [address] [place] [address] [place] [id number] Social History Tobacco Use Types Packs/Day Years [...] How often do you attend protestant or scientology Patient refused 08/08/2019 services? Do [...] to feel looser post manipulation Procedures: CMT: 71015 Chiropractic manipulative treatment 1-2 regions performed Occiput: Gentle distraction-x10, C0, Supine Cervical: Gentle PtoA mob'sC4, T2, Supine NO rotary manipulation due to fusion C5-C7 Activator to right first rib Modalities: 04578: Acupuncture, for 15 minutes: Points: For neck [...] Follow-up: Return to care in one week. ROBE STYLIST documented in this encounter Plan of Treatment Not on filedocumented as of this encounter Procedures Procedure Name Priority Date/Time Associated Diagnosis Comme nts HC ACUPUNCTURE, 1+ Routine 07/27/2017 10:08 AM Cervicalg ia NEEDLES, W/O ELECTRICAL WARDROBE STYLIST Cervical segment STIM; INIT 15 MIN dysfunction PERSONAL CONTACT [facility] CHIROPRAC Routine 07/27/2017 10:08 AM Cervicalgia MANIP,SPINAL,1-2 WARDROBE STYLIST Cervical segment REGIONS dysfunction documented in this encounter Visit Diagnoses Diagnosis Cervicalgia - Primary Cervical segment dysfunction Nonallopathic lesion of cervical region, not elsewhere classified documented in this encounter Additional Health Concerns Assessment Noted Time PHQ-9 Depression Total Score: 12 06/12/2017 1:02 PM CS T documented as of this encounter Care Teams Site Operations Manager Relationship Specialty Start Date End Date Vanda Guerrero MD PCP - General Internal Medicine 04/08/15 01/08/19 [address] [facility] [place] [address] Vanda Guerrero MD PCP - Assigned PCP 07/24/16 06/15/18 [address] [facility] [place] [address] documented as of this encounter
--- OUTSIDE RECORDS SUMMARY | 2022-05-09 13:27 | XMS_ITS | Encounter Summary ---
:1965 Author Organization [facility] Address [address] [place] [address] Care Team Providers Name Role Phone Vanda Guerrero MD Primary Care Provider [phone] Vanda Guerrero MD Unavailable Reason for Visit Diagnostic Imaging XR - Closed Specialty Diagnoses / Procedures Referred By Contact Refer red To Contact Diagnoses Cervicalgia Rosalia Main APRN Procedures XR Cervical Spine 2/3 Views [facility] [address] [place] [address] [place] [address] Referral ID Status Reason Start Date Expiration Date Visits Requ ested Visits Authorized [id number] Closed 06/27/2017 06/27/2018 1 1 Encounter Details Date Type Department Care Team Description 06/27/2017 Radiant Appointment [facility] Sports Rosalia Main Cervicalbola and Orthopedic Care SEAN Angeles CN P [facility] [address] [address] [place] [address] [place] [address] [place], [place] [phone] [address] Social History Tobacco Use Types Packs/Day Years [...] How often do you attend sabianist or methodist Patient refused 08/08/2019 services? Do you belong to any clubs or organizations such as No 08/08/2019 sabianist groups, Synatas, fraternal or athletic groups, or school groups? [...] Cervicalgia Res ults for this 2/3 VIEWS HAND SALTER procedure are i n the results section. documented in this encounter Results XR Cervical Spine 2/3 Views (06/27/2017 10:30 AM HAND SALTER) Anatomical Region Laterality Modality Spine Computed Radiography Specimen (Source) Anatomical Location Collection Method / Collectio n Time Received Time / Laterality Volume Impressions 06/27/2017 4:33 PM HAND SALTER IMPRESSION: Flexion and extension lateral views only. 1 mm anterolisthesis C2 on C3 and C4 on C5. T hese levels reduce with extension. Anterior interbody fusion C5- C7 appears solid with normal alignment. Degenerative disc space narro wing C3-4. No acute bony or soft tissue abnormality in the lateral v iew. ROHAN PINK MD Narrative 06/27/2017 4:33 PM HAND SALTER CERVICAL SPINE TWO - THREE VIEWS 06/27/2017 [...] iew. ROHAN PINK MD Rosalia Main APRN ENGINE INSTALLER IMG DIAGNOSTIC IMAGING DAMASO MIRAMONTES documented in this encounter Visit Diagnoses Diagnosis Cervicalgia documented in this encounter Additional Health Concerns Assessment Noted Time PHQ-9 Depression Total Score: 12 06/12/2017 1:02 PM CS T documented as of this encounter Care Teams Adoption Agent Relationship Specialty Start Date End Date Vanda Guerrero MD PCP - General Internal Medicine 04/08/15 01/08/19 [address] [facility] [place] [phone] Vanda Guerrero MD PCP - Assigned PCP 07/24/16 06/15/18 [address] [facility] [place] [id number] documented as of this encounter
--- OUTSIDE RECORDS SUMMARY | 2022-05-09 13:27 | XMS_ITS | Encounter Summary ---
:1965 Author Organization [facility] Address [address] [place] [address] Care Team Providers Name Role Phone Vanda Guerrero MD Primary Care Provider [phone] Vanda Guerrero MD Unavailable Reason for Visit Reason Comments Medication Refill metFORMIN (GLUCOPHAGE) 500 M G tablet Encounter Details Date Type Department Care Team Description 12/08/2017 Refill [facility] Vanda Guerrero M edication Refill Clinic Pino SALDANA (metFORMIN (GLUCOPHAGE) [address] [facility] 500 M G tablet) [facility] [address] [place] [address] [place] [address] [phone] Social History Tobacco Use Types Packs/Day Years [...] How often do you attend restorationism or bahai Patient refused 08/08/2019 services? Do [...] diabetes check Radha Manning RN -- [facility] Telephone Encounter - Kartik Javier - 12/08/2017 [...] documented as of this encounter Care Teams Tub Puller Relationship Specialty Start Date End Date Vanda Guerrero MD PCP - General Internal Medicine 04/08/15 01/08/19 [address] [facility] [place] [address] Vanda Guerrero MD PCP - Assigned PCP 07/24/16 06/15/18 [address] [facility] [place] [address] documented as of this encounter
--- OUTSIDE RECORDS SUMMARY | 2022-05-09 13:27 | XMS_ITS | Encounter Summary ---
:1965 Author Organization [facility] Address [address] [place] [address] Care Team Providers Name Role Phone Vanda Guerrero MD Primary Care Provider [phone] Vanda Guerrero MD Unavailable Reason for Visit Reason Onset Date Comments Patient Request for Note/Letter 12/19/2017 Encounter Details Date Type Department Care Team Description 12/19/2017 Telephone [facility] Vanda Guerrero Patient Request for Clinic Pino Toribio MD Note/Letter [address] [facility] [address] [place] [address] [place] [id number] [phone] Social History Tobacco Use Types Packs/Day Years [...] How often do you attend yarsani or adventist Patient refused 08/08/2019 services? Do [...] provider. Pt will pickup at front desk person downstairs. Telephone Encounter - Vanda Guerrero MD - 12/19/2017 3:04 PM CDT Letter printed, signed, and in station out basket or on MA/TILE ROOFER/RN desk Telephone Encounter - Lori Weber - [...] Sunday. Needs the letter ALLEN. (Company is [employer]) Detailed comments: Megan will pharmacy picking technician when the letter is ready. Call her at below number when letter is ready. Phone Number Patient can be reached at: [phone] Best Time: Anytime Can we leave a [...] as of this encounter Care Teams Tub Operator Relationship Specialty Start Date End Date Vanda Guerrero MD PCP - General Internal Medicine 04/08/15 01/08/[address] [place] [address] [place] [address] Vanda Guerrero MD PCP - Assigned PCP 07/24/16 06/15/[address] [place] [address] [place] [address] documented as of this encounter
--- OUTSIDE RECORDS SUMMARY | 2022-05-09 13:27 | XMS_ITS | Encounter Summary ---
:1965 Author Organization [facility] Address [address] [place] [address] Care Team Providers Name Role Phone Vanda Guerrero MD Primary Care Provider [phone] Vanda Guerrero MD Unavailable Reason for Visit Reason Onset Date Comments Refill Request 02/15/2018 topiramate (TOPAMAX) 50 MG tablet Refill Request 02/15/2018 citalopram (CELEXA) 20 MG tablet Encounter Details Date Type Department Care Team Description 02/15/2018 Refill [facility] Vanda Guerrero R efill Request Clinic Pino SALDANA (topiramate (TOPAMAX) [address] [place] [address] [facility] 50 MG tablet); Refill [facility] [address] Request (citalopram [address] [place] [address] (CELEXA) 20 MG tablet) [place] [phone] Social History Tobacco Use Types Packs/Day Years [...] organizations such as No 08/08/2019 congregational groups, Reelios, fraYapta or athletic groups, or school groups? How [...] of protocol range. Thea Gonzalez RN BSN [facility] [phone] Telephone Encounter - Liya Gonzalez RN - 02/17/2018 9:25 PM CDT phq9 sent via [employer]. Topiramate dx is Fibromyalgia and obesity Thea Gonzalez RN BSN [facility] [phone] Telephone Encounter - Efren Pryor - 02/15/2018 [...] HCT 38.1 PLT 229 For GICH ONLY: [id number] = WBC, [id number] = RBC Passed - Normal ALT or [...] of this encounter Care Teams Head Of Science Relationship Specialty Start Date End Date Vanda Guerrero MD PCP - General Internal Medicine 04/08/15 01/08/19 [address] [facility] [address] Vanda Guerrero MD PCP - Assigned PCP 07/24/16 06/15/18 [address] [facility] [address] documented as of this encounter
--- OUTSIDE RECORDS SUMMARY | 2022-05-09 13:27 | XMS_ITS | Encounter Summary ---
:1965 Author Organization [facility] Address [address] [place] [address] Care Team Providers Name Role Phone Vanda Guerrero MD Primary Care Provider [phone] Vanda Guerrero MD Unavailable Reason for Referral - Closed Specialty Diagnoses / Procedures Referred By Contact Refer olga To Contact Diagnoses Cervical radiculopathy Jim Wang Procedures NO CHARGE ANDREEA Taylor MD [address] [place] [address] Referral ID Status Reason Start Date Expiration Date Visits Requ ested Visits Authorized [id number] Closed 07/10/2017 07/10/2018 1 1 LIARY EQUIPMENT OPERATOR Reason for Visit Reason Comments Pain - Closed Specialty Diagnoses / Procedures Referred By Contact Refer olga To Contact Diagnoses Cervical facet joint syndrome Rosalia Main APRN MACHINE COREMAKER [facility] [address] [place] [address] [place] [address] Referral ID Status Reason Start Date Expiration Date Visits Requ ested Visits Authorized [id number] Closed 06/29/2017 06/29/2018 1 1 Encounter Details Date Type Department Care Team Description 07/10/2017 Radiology [facility] Rosalia Main APRN MACHINE COREMAKER [facility] [address] [place] [address] [place] [address] Cervical Injection Office Pain Management Jim Wang MD [address] [place] [id number] radiculopathy Visit [place] (Primary Dx) [address] [facility] [address] [place] [address] Social History Tobacco Use Types [...] How often do you attend sikh or sabianist Patient refused 08/08/2019 services? Do [...] Comments Blood Pressure 118/72 07/10/2017 10:58 AM AUXILIARY EQUIPMENT OPERATOR Pulse 80 07/10/2017 10:58 AM AUXILIARY EQUIPMENT OPERATOR Temperature - - Respiratory Rate - - Oxygen Saturation 100% 07/10/2017 10:58 AM AUXILIARY EQUIPMENT OPERATOR Inhaled Oxygen Concentration - - Weight - - Height - - Body Mass Index - - documented in this encounter Patient Instructions Patient InstructionsSteeCara coley RN - 07/10/2017 10:15 AM CST [facility] Procedure Discharge Instructions Today you [...] pain center line during work hours at [phone] or on-call physician after hours at [phone]: -Fever over 100 degree F -Swelling, bleeding, redness, drainage, warmth at the injection site -Progressive weakness or numbness in your legs or arms -Loss of bowel or bladder function -Unusual headache that is not relieved by Tylenol or your regular headache medication -Unusual new onset of pain that is not improving Phone #s: Nurse triage line for general questions: [phone] LIARY EQUIPMENT OPERATOR documented in this encounter Progress Notes Jim Wang MD - 07/10/2017 10:15 AM CST [facility] - Procedure Note Date of Visit: 07/10/2017 Procedure performed: C7-T1 interlaminar epidural steroid injection with fluoroscopic guidance Diagnosis: Cervical spondylosis; Cervical radiculitis/radiculopathy Cherry Dipper: Jim Wang MD Anesthesia: none Indications: Megan [...] the patient was advised to contact the [facility] for any of the [...] for post-procedure evaluation. Jim WangMD Pain Management LIARY EQUIPMENT OPERATOR documented in this encounter Nursing Notes Sandy [...] oral steroids? NO Do you have a line haul driver? Yes Are you or ? NO Are the vital signs normal? Yes LIARY EQUIPMENT OPERATOR Cara Mcnulty RN - 07/10/2017 10:15 AM CST 22 gauge Peripheral IV inserted into left anticubital - attempts: 1 Cara MORALES-RN Bath Solution Maker [facility] LIARY EQUIPMENT OPERATOR Cara Mcnulty RN - 07/10/2017 10:15 AM [...] patient home? Yes Signature/Title: Cara Mcnulty RN Bath Solution Maker [facility] LIARY EQUIPMENT OPERATOR documented in this encounter Plan of Treatment Not on filedocumented as of this encounter Visit Diagnoses Diagnosis Cervical radiculopathy - Primary Brachial neuritis or radiculitis nos documented in this encounter Additional Health Concerns Assessment Noted Time PHQ-9 Depression Total Score: 12 06/12/2017 1:02 PM CS T documented as of this encounter Care Teams Meat Boner And Slicer Relationship Specialty Start Date End Date Vanda Guerrero MD PCP - General Internal Medicine 04/08/15 01/08/19 [address] [facility] [place] [id number] Vanda Guerrero MD PCP - Assigned PCP 07/24/16 06/15/18 [address] [facility] [place] [address] documented as of this encounter
--- OUTSIDE RECORDS SUMMARY | 2022-05-09 13:27 | XMS_ITS | Encounter Summary ---
:1965 Author Organization [place] Address [address] [place] [address]. [place] [address] Care Team Providers Name Role Phone Vanda Guerrero MD Primary Care Provider [phone] Vanda Guerrero MD Unavailable Reason for Visit Reason Comments Medication Refill blood glucose monitoring (ON E TOUCH ULTRA) test strip (Discontinued) Encounter Details Date Type Department Care Team Description 09/22/2017 Refill [facility] Vanda Guerrero M edication Refill Clinic [place] SAL[place]NA (blood glucose [address] [place] 3305 [facility] monit oring (ONE TOUCH [facility] [address] ULTRA) test strip [address] [place] [address] (Discontinued)) [place] [id number] [phone] Social History Tobacco Use Types Packs/Day Years [...] How often do you attend methodist or hoahaoism Patient refused 08/08/2019 services? Do [...] 09/25/2017 9:58 AM CDT Prescription approved per [facility] Refill Protocol. Telephone Encounter - Efren Roldan [...] documented as of this encounter Care Teams Pr Intern Relationship Specialty Start Date End Date Vanda Guerrero MD PCP - General Internal Medicine 04/08/15 01/08/[address] [place] [address] [place] [address] Vanda Guerrero MD PCP - Assigned PCP 07/24/16 06/15/[address] [place] [address] [place] [address] documented as of this encounter
--- OUTSIDE RECORDS SUMMARY | 2022-05-09 13:27 | XMS_ITS | Encounter Summary ---
:1965 Author Organization [place] Address [address] [place] [address] Care Team Providers Name Role Phone Vanda Guerrero MD Primary Care Provider [phone] Vanda Guerrero MD Unavailable Reason for Visit Reason Comments Medication Refill [facility] 24 HOUR 10- 240 MG per 24 hr tablet Encounter Details Date Type Department Care Team Description 08/01/2017 Refill [facility] Vanda Guerrero M edication Refill ([facility] [place] LORATADINE-D 24 HOUR [address] [place] [address] [facility] 10-24 0 MG per 24 hr [facility] [address] tablet) [address] [place] [address] [place] [id number] [phone] Social History Tobacco Use Types Packs/Day Years [...] How often do you attend uatsdin or evangelical Patient refused 08/08/2019 services? Do [...] - Lori Weber - 08/06/2017 3:54 PM SLATE CUTTER OPERATOR Faxed RX to patients pharmacy. Lori Weber MA E CUTTER OPERATOR Telephone Encounter - Vanda Guerrero MD - 08/06/2017 2:15 PM SLATE CUTTER OPERATOR Script printed, signed, and in station out basket. R E CUTTER OPERATOR Telephone Encounter - Kirsten Casillas RN - 08/06/2017 1:44 PM CST Routing refill request to provider for review/approval because: Drug not on the [facility] ref[place] Kirsten Casillas, shearing machine operator Nurse E CUTTER OPERATOR Telephone Encounter - Marisa Matthew - 08/01/2017 1:28 PM CST [facility] 24 HOUR 10-240 MG per 24 hr tablet Last Written Prescription Date: Last Fill Quantity: 90, # refills: 1 Last Office Visit: 06/12/2017 Future Office visit: Routing refill request to provider for review/approval because: Drug not on the [facility] or [facility] refill protocol or controlled substance E CUTTER OPERATOR documented in this encounter Plan of Treatment Not on filedocumented as of this encounter Visit Diagnoses Diagnosis Chronic seasonal allergic rhinitis, unsp ecified trigger documented in this encounter Additional Health Concerns Assessment Noted Time PHQ-9 Depression Total Score: 12 06/12/2017 1:02 PM CS T documented as of this encounter Care Teams Worship Pastor Relationship Specialty Start Date End Date Vanda Guerrero MD PCP - General Internal Medicine 04/08/15 01/08/[address] [place] [address] [place] [address] Vanda Guerrero MD PCP - Assigned PCP 07/24/16 06/15/[address] [place] [address] [place] [address] documented as of this encounter
--- OUTSIDE RECORDS SUMMARY | 2022-05-09 13:27 | XMS_ITS | Encounter Summary ---
:1965 Author Organization [facility] Address [address] [place] [address] Care Team Providers Name Role Phone Vanda Guerrero MD Primary Care Provider [phone] Vanda Guerrero MD Unavailable Reason for Referral [facility] - Closed Specialty Diagnoses / Procedures Referred By Contact Refer red To Contact Diagnoses Rosalia Pagan APRN CNP [facility] [address] [place] [address] Referral ID Status Reason Start Date Expiration Date Visits Requ ested Visits Authorized [id number] Closed 06/27/2017 06/27/2018 1 1 FICIAL BREAST FABRICATOR Diagnostic Imaging MRI - Closed Specialty Diagnoses / Procedures Referred By Contact Refer olga To Contact Radiology. Diagnoses Rosalia Pagan APRN Mri Procedures MR Cervical Spine w/o Contrast TERMINAL MAKEUP OPERATOR [address] [facility] [place], [place] [address] [address] [place] [address] Referral ID Status Reason Start Date Expiration Date Visits Requ ested Visits Authorized [id number] Closed 06/27/2017 06/27/2018 1 1 FICIAL BREAST FABRICATOR Diagnostic Imaging XR - Closed Specialty Diagnoses / Procedures Referred By Contact Refer red To Contact Diagnoses Cervicalgia Rosalia Main APRN Procedures XR Cervical Spine 2/3 Views [facility] [address] [place] [address] Referral ID Status Reason Start Date Expiration Date Visits Requ ested Visits Authorized [id number] Closed 06/27/2017 06/27/2018 1 1 FICIAL BREAST FABRICATOR Reason for Visit Reason Comments Neurologic Problem DDD, Cervical radiates down the right side into the right shoulder more than left down to the e lbow, patient has hand numbness and tingling at times weakness, has had previous surgery with Dr. Brandt in 2000 Encounter Details Date Type Department Care Team Description 06/27/2017 Office Visit [facility] Rosalia Main Cervical bola (Primary [facility] Neurosurgery SEAN Angeles CN P Dx) [facility] ORTHOPEDIC [address] [facility] [address] [place] [address] [phone] Social History Tobacco Use Types Packs/Day Years [...] How often do you attend jainism or pentecostal Patient refused 08/08/2019 services? Do [...] Comments Blood Pressure 124/77 06/27/2017 10:03 AM ARTIFICIAL BREAST FABRICATOR Pulse 83 06/27/2017 10:03 AM ARTIFICIAL BREAST FABRICATOR Temperature - - Respiratory Rate - - Oxygen Saturation 97% 06/27/2017 10:03 AM ARTIFICIAL BREAST FABRICATOR Inhaled Oxygen Concentration - - Weight 90.7 kg (200 lb) 06/27/2017 10:03 AM ARTIFICIAL BREAST FABRICATOR Height 157.5 cm (5' 2) 06/27/2017 10:03 AM ARTIFICIAL BREAST FABRICATOR Body Mass Index 36.58 06/27/2017 10:03 AM ARTIFICIAL BREAST FABRICATOR documented in this encounter Patient Instructions Patient InstructionsSchmidtRosalia APRN TERMINAL MAKEUP OPERATOR - 06/27/2017 10:00 AM ARTIFICIAL BREAST FABRICATOR 1. Please call [facility] Radiology to have cervical MRI completed. Call [phone]. I will contact you with results. 2. Cervical xray today 3. Please schedule your youth care professional with [facility] FICIAL BREAST FABRICATOR documented in this encounter Progress Notes Rosalia Main APRN CNP - 06/27/2017 10:[address] Raoul Danielson [facility] Neurosurgery Clinic Visit CC: neck and arm pain Primary care Provider: Vanda Guerrero Reason For Visit: I was asked by Dr. Guerrero to consult on the patient for cervical radicular pain. HPI: Megan Choi is a 52 year old female with cervical radicular pain. She notes that she hadC5-[address] [facility] We are in the process of obtaining [...] TOUCH DELICA) lancets ??? cholecalciferol (VITAMIN D3) 51593 UNITS capsule ??? order for DME ??? [...] ??? Cardiovascular Mother [place] age 72 ??? DIABETES Mother Type II ??? Hypertension Mother ??? Lipids Mother ??? Arthritis Mother OA ??? KIDNEY DISEASE Mother 70 ??? Cardiovascular Father [place] early [...] notes that she hadC5-7fusion in 2000 at [facility]. We are in the process of obtaining [...] to this. We will have her try youth care professional as well through [facility]. She is open to this. Patient Instructions 1. Please call [facility] Radiology to have cervical MRI completed. Call [phone]. I will contact you with results. 2. Cervical xray today 3. Please schedule your youth care professional with [facility] [address] [place] [address] Pager [phone] FICIAL BREAST FABRICATOR documented in this encounter Plan of Treatment Scheduled Referrals Name Type Priority Associated Diagnoses Order S chedule [facility] PT, HAND, AND Referral Routine Cervicalgia Ordered: 0 06/27/2017 CHIROPRACTIC REFERRAL documented as of this encounter Results MR Cervical Spine w/o Contrast (06/28/2017 1:36 PM ARTIFICIAL BREAST FABRICATOR) Anatomical Region Laterality Modality Spine, SUBRAD MR NEURO, UMP MR SPINE, RAD MR Magnetic Resonance Specimen (Source) Anatomical Location Collection Method / Collectio n Time Received Time / Laterality Volume Impressions 06/28/2017 2:37 PM ARTIFICIAL BREAST FABRICATOR IMPRESSION: ?? 1. Anterior fusion at C5-C6 [...] MILAGROS JC MD Narrative 06/28/2017 2:37 PM ARTIFICIAL BREAST FABRICATOR MRI CERVICAL SPINE WITHOUT CONTRAST June 28, [...] level. MILAGROS JC MD Rosalia Main APRN TERMINAL MAKEUP OPERATOR IMG MRI ORDERABLES XR Cervical Spine 2/3 Views (06/27/2017 10:30 AM ARTIFICIAL BREAST FABRICATOR) Anatomical Region Laterality Modality Spine Computed Radiography Specimen (Source) Anatomical Location Collection Method / Collectio n Time Received Time / Laterality Volume Impressions 06/27/2017 4:33 PM ARTIFICIAL BREAST FABRICATOR IMPRESSION: Flexion and extension lateral views only. 1 mm anterolisthesis C2 on C3 and C4 on C5. T hese levels reduce with extension. Anterior interbody fusion C5- C7 appears solid with normal alignment. Degenerative disc space narro wing C3-4. No acute bony or soft tissue abnormality in the lateral v iew. ROHAN PINK MD Narrative 06/27/2017 4:33 PM ARTIFICIAL BREAST FABRICATOR CERVICAL SPINE TWO - THREE VIEWS 06/27/2017 [...] iew. ROHAN PINK MD Rosalia Karthik Main COMPUTER DESIGNER TERMINAL MAKEUP OPERATOR IMG DIAGNOSTIC IMAGING DAMASO MIRAMONTES documented in this encounter Visit Diagnoses Diagnosis Cervicalgia - Primary Cervicalgia Cervicalgia documented in this encounter Additional Health Concerns Assessment Noted Time PHQ-9 Depression Total Score: 12 06/12/2017 1:02 PM CS T documented as of this encounter Care Teams Fuel Storage Technician Relationship Specialty Start Date End Date Vanda Guerrero MD PCP - General Internal Medicine 04/08/15 01/08/19 [address] [facility] [place] [address] Vanda Guerrero MD PCP - Assigned PCP 07/24/16 06/15/18 [facility] [place] [address] documented as of this encounter
--- OUTSIDE RECORDS SUMMARY | 2022-05-09 13:27 | XMS_ITS | Encounter Summary ---
:1965 Author Organization [place] Address [address] [place] [address] Care Team Providers Name Role Phone Vanda Guerrero MD Primary Care Provider [phone] Vanda Guerrero MD Unavailable JeanaNoreen girard TENNIS CAMP INSTRUCTOR METAL DRILL PRESS OPERATOR Unavailable JeanaNoreen TENNIS CAMP INSTRUCTOR METAL DRILL PRESS OPERATOR Unavailable JeanaNoreen TENNIS CAMP INSTRUCTOR METAL DRILL PRESS OPERATOR Primary Care Provider Kalyan Galvan Unavailable Unavailable Lashae Trevino [facility] Unavailable [phone] Eduardo Sharma MD Unavailable Rios Monteiro MD Unavailable Marcelo Artis-C Unavailable [phone] Rodrigo Man-C Unavailable Reason for Visit Reason Comments Medication Refill ONETOUCH ULTRA test strip; s imvastatin (ZOCOR) 20 MG tablet Encounter Details Date Type Department Care Team Description 12/21/2017 Refill [facility] Vanda Guerrero M edication Refill Clinic [place] SAL[place]NA (ONETOUCH ULTRA test [address] [place] [address]305 [facility] strip ; simvastatin [facility] (ZOCOR) 20 MG tablet) [address] [place] [address] [place] [address] [phone] Social History Tobacco Use Types Packs/Day Years [...] 12/25/2017 10:56 AM CDT Prescription approved per [facility] Refill Protocol. Day Greene RN, BSN Telephone [...] documented as of this encounter Care Teams Cigar Packer And Picker Relationship Specialty Start Date End Date Vanda Guerrero, PCP - General Internal Medicine 04/08/15 01/08/[address] [place] [address] [place] [address] Vanda Guerrero, PCP - Assigned PCP 07/24/16 06/15/18 [facility] [place] [address] [place] PCP - Assigned PCP 06/16/18 08/13/18 SENA Haley METAL DRILL PRESS OPERATOR [facility] [place] [address] [place] PCP - General Nurse Practitioner 01/09/19 12/12/21 SEAN Haley METAL DRILL PRESS OPERATOR [facility] [place] [address] [place] Assigned PCP 06/16/18 SEAN Haley METAL DRILL PRESS OPERATOR [address] [place] [address] [place] [id number] Kalyan Galvan Personal Advocate & 08/08/19 Liaison (PAL) Lashae Trevino Pharmacist Pharmacist 10/14/19 12/01/20 [facility] [address] [place] [address] Eduardo Sharma MD Assigned Sleep Provider 04/02/20 05/07/[address] [place] [address] Rios Monteiro MD Assigned Musculoskeletal 04/02/20 08/24/[address] Provider [address] [place], [place] [address] Marcelo Artis Assigned Musculoskeletal 08/25/20 08/20/21 MIKAYLA Nuno Provider [address] [place], [place] [address] Rodrigo Man Assigned Surgical 08/25/2011/27 MIKAYLA Lacy Provider [address] [place] [address] documented as of this encounter
--- OUTSIDE RECORDS SUMMARY | 2022-05-09 13:27 | XMS_ITS | Encounter Summary ---
:1965 Author Organization [place] Address [address] [place] [address]. [place] [address] Care Team Providers Name Role Phone Vanda Guerrero MD Primary Care Provider [phone] Vanda Guerrero MD Unavailable Reason for Visit Reason Comments Consult mole/brown spot on shoulder, it is sore, crusted and now has been sensitive. Has had for a long time, and has been changing over the last 6-8 months Encounter Details Date Type Department Care Team Description 08/21/2017 Office Visit [facility] Vanda Fuentes of uncertain behavior of skin (Primary Dx); Clinic Pino Donnelly MD Solar lentiginosis [address] [place] [address] [facility] [address] [place] [address] [place] [address] [phone] Social History Tobacco Use Types Packs/Day Years [...] How often do you attend baptist or baptist Patient refused 08/08/2019 services? Do [...] TOUCH DELICA) lancets ??? cholecalciferol (VITAMIN D3) 57048 UNITS capsule ??? order for DME ??? 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 Smoking [...] Ref Test Analysis Performed At [facility] [place] Method Time Signature Copath Report Patient Name: PADMINI CHOI MR#: [id number] Specimen #: [id number] Collected: 08/21/2017 Received: 08/22/2017 Reported: 08/24/2017 15:20 [...] the [place]. CPT Codes: A: 97094-ZI9.T, 01935-IV7.P TESTING LAB LOCATION: [facility], [address] ?? 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
--- OUTSIDE RECORDS SUMMARY | 2022-05-09 13:27 | XMS_ITS | Encounter Summary ---
:1965 Author Organization [place] Address [address] [place] [address] Care Team Providers Name Role Phone Vanda Guerrero MD Primary Care Provider [phone] Vanda Guerrero MD Unavailable Encounter Details Date Type Department Care Team Description 07/18/2017 Therapy Visit [facility] Serena Blount (Primary Dx); CHIRO J, [place] Thoracic spine pain; [address] [facility] Cervical segment dysfunction [address] [facility] [address] [place] [address] Social History Tobacco Use Types Packs/Day Years [...] How often do you attend muslim or hoahaoism Patient refused 08/08/2019 services? Do [...] to feel looser post manipulation Procedures: CMT: 15438 Chiropractic manipulative treatment 1-2 regions performed Occiput: Gentle distraction-x10, C0, Supine Cervical: Gentle PtoA mob'sC4, T2, Supine NO rotary manipulation due to fusion C5-C7 Activator to right first rib Modalities: 93534: Acupuncture, for 15 minutes: Points: For neck [...] Follow-up: Return to care in one week. NG CAGE WORKER documented in this encounter Plan of Treatment Not on filedocumented as of this encounter Procedures Procedure Name Priority Date/Time Associated Diagnosis Comme nts ACUPUNCTURE, 1+ Routine 07/18/2017 1:03 PM Cervicalgi a NEEDLES, W/O ELECTRICAL GAMING CAGE WORKER Thoracic spine pain STIM; INIT 15 MIN Cervical segment PERSONAL CONTACT dysfunction ZC CHIROPRAC Routine 07/18/2017 1:03 PM Cervicalgia MANIP,SPINAL,1-2 GAMING CAGE WORKER Thoracic spine pain REGIONS Cervical segment dysfunction documented in this encounter Visit Diagnoses Diagnosis Cervicalgia - Primary Thoracic spine pain Pain in thoracic spine Cervical segment dysfunction Nonallopathic lesion of cervical region, not elsewhere classified documented in this encounter Additional Health Concerns Assessment Noted Time PHQ-9 Depression Total Score: 12 06/12/2017 1:02 PM CS T documented as of this encounter Care Teams Assistant Chief Nursing Officer Relationship Specialty Start Date End Date Vanda Guerrero MD PCP - General Internal Medicine 04/08/15 01/08/19 [address] [facility] [place] [address] Vanda Guerrero MD PCP - Assigned PCP 07/24/16 06/15/[address] [place] [address] [place] [address] documented as of this encounter
--- OUTSIDE RECORDS SUMMARY | 2022-05-09 13:27 | XMS_ITS | Encounter Summary ---
:1965 Author Organization [place] Address [address] [place] [address] Care Team Providers Name Role Phone Vanda Guerrero MD Primary Care Provider [phone] Vanda Guerrero MD Unavailable Encounter Details Date Type Department Care Team Description 07/09/2017 [facility] (Primary Dx); CHIRO J, [place] Cervical segment dysfunction; [address] [facility] Thoracic segment dysfunction [address] [facility] [address] [address] [place], [place] [address] Social History Tobacco Use Types Packs/Day Years [...] How often do you attend anabaptist or pentecostal Patient refused 08/08/2019 services? Do [...] post manipulation Plan: Procedures: Evaluation and Management: [address]1954 Moderate level exam 30 min CMT: 75827 Chiropractic manipulative treatment 1-2 regions performed Occiput: Gentle distraction-x10, C0, Supine Cervical: Gentle PtoA mob'sC4, T2, Supine NO rotary manipulation due to fusion C5-C7 Activator to right first rib Modalities: 92795: Acupuncture, for 15 minutes: Points: For neck [...] C5-C7 Activator to right first rib Modalities: 42329: Acupuncture, for 15 minutes: Points: For neck [...] when interpreting information found in this chart. NICAL FELLOW documented in this encounter Plan of Treatment Not on filedocumented as of this encounter Procedures Procedure Name Priority Date/Time Associated Diagnosis Comme nts HC ACUPUNCTURE, 1+ Routine 07/09/2017 1:43 PM Cervicalgi a NEEDLES, W/O ELECTRICAL TECHNICAL FELLOW Cervical segment STIM; INIT 15 MIN dysfunction PERSONAL CONTACT Thoracic segment dysfunction [facility] CHIROPRAC Routine 07/09/2017 1:43 PM Cervicalgia MANIP,SPINAL,1-2 TECHNICAL FELLOW Cervical segment REGIONS dysfunction Thoracic segment dysfunction [...] documented as of this encounter Care Teams Hematology Technologist Relationship Specialty Start Date End Date Vanda Guerrero MD PCP - General Internal Medicine 04/08/15 01/08/19 [address] [facility] [place] [address] Vanda Guerrero MD PCP - Assigned PCP 07/24/16 06/15/18 [address] [facility] [place] [address] documented as of this encounter
--- OUTSIDE RECORDS SUMMARY | 2022-05-09 13:27 | XMS_ITS | Encounter Summary ---
:1965 Author Organization [place] Address [facility] [place] [address] Care Team Providers Name Role Phone Vanda Guerrero MD Primary Care Provider [phone] Vanda Guerrero MD Unavailable Reason for Visit Diagnostic Imaging XR - Closed Specialty Diagnoses / Procedures Referred By Contact Refer red To Contact Diagnoses Cervical facet joint syndrome Jim Wang, Procedures XR Cervical/Thoracic Epidural Inj [address] [place] [address] Referral ID Status Reason Start Date Expiration Date Visits Requ ested Visits Authorized [id number] Closed 07/09/2017 07/09/2018 1 1 Encounter Details Date Type Department Care Team Description 07/10/2017 Radiant Appointment [facility] Jl Wang vical facet Clinic [place] Jim joint synd shola Pain Management MD [place] [address] [place] [address] [place] [phone] [address] (Work) [phone] Social History Tobacco Use Types Packs/Day Years [...] How often do you attend scientology or synagogue Patient refused 08/08/2019 services? Do you belong to any clubs or organizations such as No 08/08/2019 scientology groups, Somos, fraternal or athletic groups, or school groups? [...] Cervical facet joint Results for this CERVICAL/THORACIC RAIL CAR LOADER syndrome procedure are in EPIDURAL INJ INCL the result s IMAGING section. documented in this encounter Results XR Cervical/Thoracic Epidural Inj (07/10/2017 10:17 AM RAIL CAR LOADER) Specimen (Source) Anatomical Location Collection Method / Collectio n Time Received Time / Laterality Volume Narrative Rosangela Posada - 07/10/2017 10:43 AM RAIL CAR LOADER This exam was marked as non-reportable because it will not be read by a radiologist or a [place] non-radiologis t provider. Jim Wang MD IMG DIAGNOSTIC IMAGING ORD ERABLES documented in this encounter Visit Diagnoses Diagnosis Cervical facet joint syndrome Other symptoms referable to back documented in this encounter Administered Medications Inactive Administered Medications - up to 3 most recent administrations Medication Order MAR Action Action Date Dose Rate Site iohexol (OMNIPAQUE) 300 mg/mL Given by Other 07/10/2017 10:42 AM RAIL CAR LOADER 1 mL injection 10 mL 10 mL, EPIDURAL, ONCE, On 07/10/17 at 1030, For 1 dose documented in this encounter Additional Health Concerns Assessment Noted Time PHQ-9 Depression Total Score: 12 06/12/2017 1:02 PM CS T documented as of this encounter Care Teams Sap Bw Consultant Relationship Specialty Start Date End Date Vanda Guerrero MD PCP - General Internal Medicine 04/08/15 01/08/[address] [place] [address] [place] [address] Vanda Guerrero MD PCP - Assigned PCP 07/24/16 06/15/[address] [place] [address] [place] [address] documented as of this encounter
--- OUTSIDE RECORDS SUMMARY | 2022-05-09 13:27 | XMS_ITS | Encounter Summary ---
:1965 Author Organization [place] Address [address] [place] [address] Care Team Providers Name Role Phone Vanda Guerrero MD Primary Care Provider [phone] Vanda Guerrero MD Unavailable JeanaNoreen girard STATISTICIAN RETAIL COVERAGE MERCHANDISER LEAD Unavailable JeanaNoreen girard STATISTICIAN RETAIL COVERAGE MERCHANDISER LEAD Unavailable JeanaNoreen girard STATISTICIAN RETAIL COVERAGE MERCHANDISER LEAD Primary Care Provider [phone] Kalyan Galvan Unavailable Unavailable Lashae Trevino [facility] Unavailable [phone] Eduardo Sharma MD Unavailable Rios Monteiro MD Unavailable Marcelo Artis-Aleyda Unavailable [phone] Rodrigo Man-C Unavailable Reason for Visit Reason Onset Date Comments Patient/info Update 07/18/2017 post C7-T1 interlami brown epidural steroid injection Encounter Details Date Type Department Care Team Description 07/18/2017 Telephone [employer] Jim Wang Patient/info Update Management Taylor Taylor MD (post C7-T1 [address] interlaminar epidural [address] [place] [address] steroid injection ) [place] [address] [phone] Social History Tobacco Use Types Packs/Day Years [...] often do you attend roman catholic or lutheran Patient refused 08/08/2019 services? Do [...] pt should call the nurse line at [phone]. WRAPPER documented in this encounter Plan of Treatment Not on filedocumented as of this encounter Visit Diagnoses Not on filedocumented in this encounter Additional Health Concerns Infection Onset Date Last Indicated Resolved Time Rule Out COVID-08/25/2020 08/25/2020 08/26/2020 3:2 3 PM CDT Assessment Noted Time PHQ-9 Depression Total Score: 12 06/12/2017 1:02 PM CS T documented as of this encounter Care Teams Life Skills Specialist Relationship Specialty Start Date End Date Vanda Guerrero, PCP - General Internal Medicine 04/08/15 01/08/19 [facility] [place] [address] Vanda Guerrero, PCP - Assigned PCP 07/24/16 06/15/18 MD Vargas [facility] [place] [address] [place] PCP - Assigned PCP 06/16/18 08/13/18 SEAN Haley CNP [facility] [place] [address] [place] PCP - General Nurse Practitioner 01/09/19 12/12/21 SEAN Haley RETAIL COVERAGE MERCHANDISER LEAD [address] [facility] [place] [address] [place] Assigned PCP 06/16/18 SEAN Haley RETAIL COVERAGE MERCHANDISER LEAD 3305 [facility] [place] [address] Kalyan Galvan Personal Advocate & 08/08/19 Liaison (PAL) Lashae Trevino Pharmacist Pharmacist 10/14/19 12/01/20 [facility] [address] [place], [place] [id number] Eduardo Sharma MD Assigned Sleep Provider 04/02/20 05/07/21 [address] [place] [id number] Rios Monteiro MD Assigned Musculoskeletal 04/02/20 08/24/[address] Provider [address] [place], [place] [address] Marcelo Artis Assigned Musculoskeletal 08/25/20 08/20/21 MIKAYLA Nuno Provider [address] [place], [place] [address] Rodrigo Man Assigned Surgical 08/25/2011/27 MIKAYLA Lacy Provider [address] [place] [address] documented as of this encounter
--- OUTSIDE RECORDS SUMMARY | 2022-05-09 13:27 | XMS_ITS | Encounter Summary ---
:1965 Author Organization [place] Address [address] [place] [address] Care Team Providers Name Role Phone Vanda Guerrero MD Primary Care Provider [phone] Vanda Guerrero MD Unavailable Reason for Visit Reason Comments Medication Refill omeprazole (PRILOSEC) 20 MG CR capsule Encounter Details Date Type Department Care Team Description 10/31/2017 Refill [facility] Vanda Guerrero M edication Refill Clinic [place] (omeprazole (PRILOSEC) [address] [place] [address] [facility] 20 MG CR capsule) [facility] [address] [place] [address] [place] [address] [phone] Social History Tobacco Use Types Packs/Day Years [...] How often do you attend shinto or sabianism Patient refused 08/08/2019 services? Do [...] 10/31/2017 9:08 AM CDT Prescription approved per [facility] Refill Protocol. Telephone Encounter - Marisa Matthew [...] documented as of this encounter Care Teams Counter Professional Relationship Specialty Start Date End Date Vanda Guerrero MD PCP - General Internal Medicine 04/08/15 01/08/19 [address] [facility] [place] [address] Vanda Guerrero MD PCP - Assigned PCP 07/24/16 06/15/18 [address] [facility] [place] [address] documented as of this encounter
--- OUTSIDE RECORDS SUMMARY | 2022-05-09 13:28 | XMS_ITS | Encounter Summary ---
:1965 Author Organization [place] Address [address] [place] [address] Care Team Providers Name Role Phone Vanda Guerrero MD Primary Care Provider [phone] Vanda Guerrero MD Unavailable Reason for Visit Reason Comments Medication Refill DULoxetine (CYMBALTA) 30 MG EC capsule Encounter Details Date Type Department Care Team Description 05/14/2017 Refill [facility] Vanda Guerrero M edication Refill Clinic [place] (DULoxetine (CYMBALTA) [address] [place] [address]305 [facility] 30 MG EC capsule) [facility] [address] [place] [address] [place] [address] [phone] Social History Tobacco Use Types Packs/Day Years [...] How often do you attend rastafarian or hoahaoism Patient refused 08/08/2019 services? Do [...] in past 12 months Prescription approved per [facility] Refill Protocol. Kirsten Casillas, water project engineer Nurse T TIRE REPAIRER Telephone Encounter - Marisa Matthew - 05/14/2017 7:32 AM CST [place] 09/25/2016 T TIRE REPAIRER documented in this encounter Plan of Treatment Not on filedocumented as of this encounter Visit Diagnoses Diagnosis Fibromyalgia Mylagia and myositis, unspecified documented in this encounter Additional Health Concerns Assessment Noted Time PHQ-9 Depression Total Score: 9 10/12/2016 7:16 AM CDT documented as of this encounter Care Teams Child Monitor Relationship Specialty Start Date End Date Vanda Guerrero MD PCP - General Internal Medicine 04/08/15 01/08/[address] [place] [address] [place] [address] Vanda Guerrero MD PCP - Assigned PCP 07/24/16 06/15/[address] [place] [address] [place] [address] documented as of this encounter
--- OUTSIDE RECORDS SUMMARY | 2022-05-09 13:28 | XMS_ITS | Encounter Summary ---
:1965 Author Organization [place] Address [address] [place] [address] Care Team Providers Name Role Phone Vanda Guerrero MD Primary Care Provider [phone] Vanda Guerrero MD Unavailable Reason for Visit Reason Comments Medication Refill simvastatin (ZOCOR) 20 MG ta blet Encounter Details Date Type Department Care Team Description 05/15/2017 Refill [facility] Vanda Guerrero M edication Refill Clinic [place] (simvastatin (ZOCOR) 20 [address] [place] 3305 [facility] MG ta blet) [facility] [address] [place] [address] [place] [address] [phone] Social History Tobacco Use Types Packs/Day Years [...] How often do you attend taoism or hinduism Patient refused 08/08/2019 services? Do [...] Gayathri Mcallister RN - 05/16/2017 11:16 AM CHILDREN'S PROGRAM COORDINATOR Patient is due for a diabetic appointment. Routing refill request to provider for review/approval because: Labs out of range: LDL not at goal Gayathri Mcallister RN Message handled by Nurse Triage. DREN'S PROGRAM COORDINATOR Telephone Encounter - Marisa Matthew - 05/15/2017 10:34 AM CST [place] 09/25/2016 DREN'S PROGRAM COORDINATOR documented in this encounter Plan of Treatment Not on filedocumented as of this encounter Visit Diagnoses Diagnosis Hyperlipidemia LDL goal <100 Other and unspecified hyperlipidemia documented in this encounter Additional Health Concerns Assessment Noted Time PHQ-9 Depression Total Score: 9 10/12/2016 7:16 AM CDT documented as of this encounter Care Teams Automotive Production Worker Relationship Specialty Start Date End Date Vanda Guerrero MD PCP - General Internal Medicine 04/08/15 01/08/19 [address] [facility] [place] [phone] Vanda Guerrero MD PCP - Assigned PCP 07/24/16 06/15/18 [address] [facility] [place] [address] documented as of this encounter
--- OUTSIDE RECORDS SUMMARY | 2022-05-09 13:28 | XMS_ITS | Encounter Summary ---
:1965 Author Organization [place] Address [address] [place] [address] Care Team Providers Name Role Phone Vanda Guerrero MD Primary Care Provider [phone] Vanda Guerrero MD Unavailable Reason for Visit Reason Comments Medication Refill [facility] LORAT[facility]INE[facility] 24 HOUR 10- 240 MG per 24 hr tablet Encounter Details Date Type Department Care Team Description 02/05/2017 Refill [facility] Vadna Guerrero M edication Refill ([facility] [place] LORATADINE-D 24 HOUR [address] [place] 3305 [facility] 10-24 0 MG per 24 hr [facility] [address] tablet) [address] [place] [address] [place] [address] [phone] Social History Tobacco Use Types Packs/Day Years [...] How often do you attend taoist or hoahaoism Patient refused 08/08/2019 services? Do [...] CDT Info sent . Thea Gonzalez RN [facility] [phone] Telephone Encounter - Marisa Matthew - 02/05/2017 [...] as of this encounter Care Teams Loan Coordinator Relationship Specialty Start Date End Date Vanda Guerrero MD PCP - General Internal Medicine 04/08/15 01/08/[address] [place] [address] [place] [address] Vanda Guerrero MD PCP - Assigned PCP 07/24/16 06/15/[address] [place] [address] [place] [address] documented as of this encounter
--- OUTSIDE RECORDS SUMMARY | 2022-05-09 13:28 | XMS_ITS | Encounter Summary ---
:1965 Author Organization [place] Address [address] [place] [address] Care Team Providers Name Role Phone Vanda Guerrero MD Primary Care Provider [phone] Vanda Guerrero MD Unavailable Reason for Visit Reason Comments Medication Refill loratadine-pseudoePHEDrine ( CLARITIN-D 24-HOUR) 10-240 MG per tablet Encounter Details Date Type Department Care Team Description 02/02/2017 Refill [facility] DaniloSelma Mccoy dication Refill Clinic [place] APRN MOBILE ENGINEER (loratadine-pseudoePHEDr [address] [place] 3305 [facility] ine ( CLARITIN-D 24-HOUR) [facility] 10-240 MG per tablet ) [address] [place] [address] [place] [address] [phone] Social History Tobacco Use Types Packs/Day Years [...] How often do you attend anabaptist or scientologist Patient refused 08/08/2019 services? Do [...] active on patient's medication list, not on [facility] protocol. Kirsten Casillas, coil cutter Nurse Telephone Encounter - Marisa Matthew - 02/05/2017 8:15 AM CDT loratadine-pseudoePHEDrine (CLARITIN-D 24-HOUR) 10-240 MG per tablet Last Written Prescription Date: 02/23/2016 Last Fill Quantity: 90, # refills: 3 Last Office Visit with [facility], P or Health prescribing provider: 09/25/2016 Future Office visit: Routing refill request to provider for review/approval because: Drug not on the [facility], [facility] or Health refill protocol or controlled substance documented in this encounter Plan of Treatment Not on filedocumented as of this encounter Visit Diagnoses Diagnosis Chronic seasonal allergic rhinitis, unsp ecified trigger - Primary documented in this encounter Additional Health Concerns Assessment Noted Time PHQ-9 Depression Total Score: 9 10/12/2016 7:16 AM CDT documented as of this encounter Care Teams Die Equipment Operator Relationship Specialty Start Date End Date Vanda Guerrero MD PCP - General Internal Medicine 04/08/15 01/08/19 [address]305 [facility] [place] [address] Vanda Guerrero MD PCP - Assigned PCP 07/24/16 06/15/18 [address]305 [facility] [place] [address] documented as of this encounter
--- OUTSIDE RECORDS SUMMARY | 2022-05-09 13:28 | XMS_ITS | Encounter Summary ---
:1965 Author Organization [place] Address [address] [place] [address]. [place] [address] Care Team Providers Name Role Phone Vanda Guerrero MD Primary Care Provider [phone] Vanda Guerrero MD Unavailable Reason for Referral Consultation - Closed Specialty Diagnoses / Procedures Referred By Contact Refer red To Contact Diagnoses Multiple pigmented nevi Vanda Guerrero MD [facility], [address] [place] [address] [address] [place] [address] [place] [address] Fax: Referral ID Status Reason Start Date Expiration Date Visits Requ ested Visits Authorized [id number] Closed 06/12/2017 06/12/2018 1 1 NING PROFESSIONAL Consultation - Closed Specialty Diagnoses / Procedures Referred By Contact Refer red To Contact Diagnoses Degenerative disc disease, cervical Vanda Guerrero MD [facility] [address] [place] [address] CL-RH- REFERRAL (OP) [address] [place] [address] [address] [place] [address] Phone: Fax: Referral ID Status Reason Start Date Expiration Date Visits Requ ested Visits Authorized [id number] Closed 06/12/2017 06/12/2018 1 1 NING PROFESSIONAL Reason for Visit Reason Comments Diabetes Lipids Recheck Medication Encounter Details Date Type Department Care Team Description 06/12/2017 Office Visit [facility] Vanda Guerrero ative disc disease, cervical (Primary Dx); Clinic [place] Toribio MD Moderate episode of recurrent major depr essive disorder (H); [address] [place] 3305 [facility] Morbi d obesity (H); [facility] Type 2 diabetes mellitus without complic ation, without long-term current use of insulin (H); [address] [place] [address] Anxiety; [place] [address] Muscle spasm; [phone] Persisten t insomnia; Fibromyalgia; Multiple pigmen jayne [...] How often do you attend gnosticism or hoahaoism Patient refused 08/08/2019 services? Do [...] Comments Blood Pressure 116/72 06/12/2017 12:11 PM CLEANING PROFESSIONAL Pulse 76 06/12/2017 12:11 PM CLEANING PROFESSIONAL Temperature 36.4 ??C (97.6 ??F) 06/12/2017 12:11 PM CLEANING PROFESSIONAL Respiratory Rate - - Oxygen Saturation 99% 06/12/2017 12:11 PM CLEANING PROFESSIONAL Inhaled Oxygen Concentration - - Weight 90.7 kg (200 lb) 06/12/2017 12:11 PM CLEANING PROFESSIONAL Height 157.5 cm (5' 2) 06/12/2017 12:11 PM CLEANING PROFESSIONAL Body Mass Index 36.58 06/12/2017 12:11 PM CLEANING PROFESSIONAL documented in this encounter Patient Instructions Patient InstructionsVanda Guerrero MD - 06/12/2017 12:00 PM CST Expect a call to set up a visit with the hair specialist. Increase your citalopram to 1.5 pills per day. Stop the zanaflex and start robaxin (methocarbamol) in its place for your muscle pain Repeat labs today Numbers below for dermatology visit for the spot on your left shoulder Trial of ambien for sleep - don't drive on this - think about trying a 1/2 tablet first NING PROFESSIONAL documented in this encounter Progress Notes Vanda [...] or the safety of others? No PHQ-9 Chinese PHQ-9 Any Language Suicide Assessment Five-step Evaluation [...] 1. Degenerative disc disease, cervical M50.30 ORTHO ASPHALT MACHINE OPERATOR REFERRAL Recommended repeat evaluation for cervical [...] IM See Patient Instructions Vanda Guerrero MD [facility] NING PROFESSIONAL documented in this encounter Nursing Notes Lori [...] 200 lb (90.7 kg). Medication Reconciliation: complete NING PROFESSIONAL documented in this encounter Plan of Treatment Pending Results Name Type Priority Associated Diagnoses Date/Ti me ORTHO ASPHALT MACHINE OPERATOR REFERRAL Referral Routine Degenerative dis c disease, 06/13/2017 cervical Scheduled Referrals Name Type Priority Associated Diagnoses Order S chedule DERMATOLOGY REFERRAL Referral Routine Multiple pigmented n missy Ordered: 06/12/2017 documented as of this encounter Procedures Procedure Name Priority Date/Time Associated Comments Diagnosis VITAMIN D DEFICIENCY Routine 06/12/2017 12:55 Fatigue, Res ults for this SCREENING PM CLEANING PROFESSIONAL unspecified type procedure a re in the results section. HEMOGLOBIN A1C Routine 06/12/2017 12:55 Type 2 diabetes Result s for this PM CLEANING PROFESSIONAL mellitus without procedure a re in complication, the results without long-term section. current use of insulin (H) Morbid obesity (H) COMPREHENSIVE Routine 06/12/2017 12:55 Type 2 diabetes Results for this METABOLIC PANEL PM CLEANING PROFESSIONAL mellitus without procedur e are in complication, the results without long-term section. current use of insulin (H) Morbid obesity (H) documented in this encounter Results Vitamin D Deficiency (06/12/2017 12:55 PM CLEANING PROFESSIONAL) P athologist Signature Vitamin D 35 20 - 75 06/13/2017 [facility] Deficiency ug/L 11:48 AM CLEANING PROFESSIONAL [facility] Comment: Season, race, dietary intake, and treatm ent affect the concentration of 38-nbdxaxz-Bisvwfi D. Values may decreas e during winter [...] Blood specimen 06/12/2017 12:55 8 (specimen) PM CLEANING PROFESSIONAL 12:56 PM CLEANING PROFESSIONAL Vanda Guerrero MD LAB - BLOOD ORDERABLES Performing Organization Address City/State/ZIP Code Phon e Number [address] [address] [facility] (ABNORMAL) Hemoglobin A1c (06/12/2017 12:55 PM CLEANING PROFESSIONAL) athologist Signature Hemoglobin A1C 6.7 (H) 4.3 - 6.0 06/12/2017 [place] % 1:47 PM CLEANING PROFESSIONAL [facility] Specimen Anatomical Collection Method Collection Time Receive d Time (Source) Location / / Volume Laterality Blood specimen 06/12/2017 12:55 8 (specimen) PM CLEANING PROFESSIONAL 12:56 PM CLEANING PROFESSIONAL Vanda Guerrero MD LAB - BLOOD ORDERABLES Performing Organization Address City/State/ZIP Code Phon e Number [address] [address] (ABNORMAL) Comprehensive metabolic panel (06/12/2017 12:55 PM CLEANING PROFESSIONAL) [facility] gist Method Time Signature Sodium 147 (H) 133 - 144 06/13/2017 [facility] mmol/L 8:14 AM [facility] Potassium 4.5 3.4 - 5.3 06/13/2017 [facility] mmol/L 8:14 AM [facility] Chloride 112 (H) 94 - 109 06/13/2017 [facility] mmol/L 8:14 AM [facility] Carbon Dioxide 30 20 - 32 06/13/2017 [facility] mmol/L 8:14 AM [facility] Anion Gap 5 3 - 14 06/13/2017 [facility] mmol/L 8:14 AM [facility] Glucose 125 (H) 70 - 99 06/13/2017 [place] mg/dL 8:14 AM [facility] Urea Nitrogen 11 7 - 30 06/13/2017 [facility] mg/dL 8:14 AM [facility] Creatinine 0.70 0.52 - 06/13/2017 [facility] 1.04 mg/dL 8:14 AM [facility] GFR Estimate 87 >60 06/13/2017 [facility] mL/min/1.7 8:14 AM [facility] m2 [facility] [place] Comment: Non GFR Calc GFR Estimate If >90 >60 mL/min/1.7m2 06/13/2017 8:14 A M [facility] Black [facility] Comment: GFR Calc Calcium 9.2 8.5 - 10.1 06/13/2017 8:14 AM [facility] mg/dL [facility] Bilirubin Total 0.2 0.2 - 1.3 06/13/2017 8:14 AM [facility] IEW [facility] mg/dL [facility] Albumin 3.6 3.4 - 5.0 g/dL 06/13/2017 8:14 AM [facility] EW [facility] Protein Total 7.4 6.8 - 8.8 g/dL 06/13/2017 8:14 AM [facility] Alkaline Phosphatase 194 (H) 40 - 150 U/L 06/13/2017 8:14 AM [facility] ALT 31 0 - 50 U/L 06/13/2017 8:14 AM ISSUE C LINICS [facility] AST 25 0 - 45 U/L 06/13/2017 8:14 AM [facility] Specimen Anatomical Collection Method Collection Time Receive d Time (Source) Location / / Volume Laterality Blood specimen 06/12/2017 12:55 8 (specimen) PM CLEANING PROFESSIONAL 12:56 PM CLEANING PROFESSIONAL Vanda Guerrero MD LAB - BLOOD ORDERABLES Performing Organization Address City/State/ZIP Code Phon e Number [facility] [address] [place] [address] documented in this encounter Visit Diagnoses Diagnosis [...] as of this encounter Care Teams Resident Care Technician Relationship Specialty Start Date End Date Vanda Guerrero MD PCP - General Internal Medicine 04/08/15 01/08/19 [address] [facility] [place] [id number] Vanda Guerrero MD PCP - Assigned PCP 07/24/16 06/15/18 [address] [facility] [place] [address] documented as of this encounter
--- OUTSIDE RECORDS SUMMARY | 2022-05-09 13:28 | XMS_ITS | Encounter Summary ---
:1965 Author Organization [place] Address [address] [place] [address] Care Team Providers Name Role Phone Vanda Guerrero MD Primary Care Provider [phone] Vanda Guerrero MD Unavailable Reason for Visit Reason Onset Date Comments Prior Auth - Medication 11/07/2016 omeprazole (PRIL OSEC) 20 MG capsule Encounter Details Date Type Department Care Team Description 11/07/2016 Telephone [facility] Vanda Guerrero [facility] Pino Toribio MD Medication (omeprazole [address] [place] 3305 [facility] (PRIL OSEC) 20 MG [facility] capsule) [address] [place] [address] [place] [phone] [phone] Social History Tobacco Use Types Packs/Day Years [...] approval, they will inform pt. Auth #: [id number] Lori Weber MA Telephone Encounter - Lori Weber - 11/07/2016 9:40 AM CDT Received notice from pharmacy that medication is not covered. Medication: omeprazole (PRILOSEC) 20 MG capsule Insurance phone # : [phone] BIN :[id number] PCN: BRYAN GROUPRX: [id number] documented in this encounter Plan of Treatment Not on filedocumented as of this encounter Visit Diagnoses Not on filedocumented in this encounter Additional Health Concerns Assessment Noted Time PHQ-9 Depression Total Score: 9 10/12/2016 7:16 AM CDT documented as of this encounter Care Teams Manager Winter Relationship Specialty Start Date End Date Vanda Guerrero MD PCP - General Internal Medicine 04/08/15 01/08/[address] [facility] [place] [address] Vanda Guerrero MD PCP - Assigned PCP 07/24/16 06/15/[address] [facility] [place] [address] documented as of this encounter
--- OUTSIDE RECORDS SUMMARY | 2022-05-09 13:28 | XMS_ITS | Encounter Summary ---
:1965 Author Organization [facility] Address [address] [place] [address]. [place] [address] Care Team Providers Name Role Phone Vanda Guerrero MD Primary Care Provider [phone] Vanda Guerrero MD Unavailable Reason for Visit Reason Onset Date Comments Outreach 04/26/2017 Encounter Details Date Type Department Care Team Description 04/26/2017 Telephone [facility] Sandy Joe, Outreach [facility] [address] [place] [address] [address] [place] [address] Social History [...] How often do you attend voodoo or catholic Patient refused 08/08/2019 services? Do [...] Sandy Joe RPH - 04/26/2017 12:19 PM CARBONATION TESTER We have attempted to contact this patient two times to set up a MTM follow up appointment and were unsuccessful. Contact attempts were made via [employer]veris. We will no longer continue to contact this patient to schedule a visit at this time. Please refer back to MTM if you believe this patient would continue to benefit from our services. Thank you! Sandy Joe PharmD BCPS Medication Therapy Management Practitioner #[phone] ONATION TESTER documented in this encounter Plan of Treatment Not on filedocumented as of this encounter Visit Diagnoses Not on filedocumented in this encounter Additional Health Concerns Assessment Noted Time PHQ-9 Depression Total Score: 9 10/12/2016 7:16 AM CDT documented as of this encounter Care Teams Museum Registrar Relationship Specialty Start Date End Date Vanda Guerrero MD PCP - General Internal Medicine 04/08/15 01/08/19 [address]305 [facility] [place] [address] Vanda Guerrero MD PCP - Assigned PCP 07/24/16 06/15/18 [address]305 [facility] [place] [address] documented as of this encounter
--- OUTSIDE RECORDS SUMMARY | 2022-05-09 13:28 | XMS_ITS | Encounter Summary ---
:1965 Author Organization [facility] Address [address] [place] [address] Care Team Providers Name Role Phone Vanda Guerrero MD Primary Care Provider [phone] Vanda Guerrero MD Unavailable Reason for Visit (Routine) - Closed Specialty Diagnoses / Procedures Referred By Contact Refer red To Contact Radiology / Radiology. Diagnoses Epic order, sb pt Rh [place] [address] [place] [address] [place] [address] Phone: Fax: Referral ID Status Reason Start Date Expiration Date Visits Requ ested Visits Authorized [id number] Closed 12/25/2016 12/22/2017 1 1 Encounter Details Date Type Department Care Team Description 12/25/2016 Hospital Encounter [facility] Agatha Null L eft foot pain; [facility] DPM, Acute left ankle pain; [address] [facility]/Foot and Type 2 d iabetes mellitus without complication, without long-term current use of insulin (H); Drive [address] Ankle Surgery [place]ema [place] [address] [place] [address] [facility] [address] [place] [address] Social History Tobacco Use Types [...] How often do you attend episcopalian or yarsanism Patient refused 08/08/2019 services? Do [...] capsule 8 capsule 0 017 01/02/2019 D3) 47420 UNITS (50,000 Units) by capsuleIndications: mouth once [...] or female climacteric states fluticasone (FLONASE) 50 [place] 1-2 sprays 3 Bottle 3 05/0306/12/2017 MCG/ACT [...] documented as of this encounter Care Teams Retort Engineer Relationship Specialty Start Date End Date Vanda Guerrero MD PCP - General Internal Medicine 04/08/15 01/08/19 [address]305 [facility] [place] [address] Vanda Guerrero MD PCP - Assigned PCP 07/24/16 06/15/18 [address]305 [facility] [place] [address] documented as of this encounter
--- OUTSIDE RECORDS SUMMARY | 2022-05-09 13:28 | XMS_ITS | Encounter Summary ---
:1965 Author Organization [place] Address [address] [place] [address] Care Team Providers Name Role Phone Vanda Guerrero MD Primary Care Provider [phone] Vanda Guerrero MD Unavailable Reason for Visit (Routine) - Closed Specialty Diagnoses / Procedures Referred By Contact Refer red To Contact Radiology / Radiology. Diagnoses EPIC ORDER, sb pt Rh [place] [address] [place] [address] [place] [address] Phone: Fax: Referral ID Status Reason Start Date Expiration Date Visits Requ ested Visits Authorized [id number] Closed 12/25/2016 12/22/2017 1 1 Encounter Details Date Type Department Care Team Description 12/25/2016 Hospital Encounter [facility] Agatha Null E leopoldo of left lower extremity; [facility] DPM, Left foot pain; [address] [place] [facility]/Foot and Acute le ft ankle pain; Drive [address] Ankle Surgery Type 2 diabetes mellitus without complic ation, without long-term current use of insulin (H) [place] [address] [place] [address] [facility] [address] [place] [address] Social History Tobacco Use Types [...] How often do you attend yazidi or pentecostalism Patient refused 08/08/2019 services? Do [...] capsule 8 capsule 0 017 01/02/2019 D3) 43924 UNITS (50,000 Units) by capsuleIndications: mouth once [...] or female climacteric states fluticasone (FLONASE) 50 [place] 1-2 sprays 3 Bottle 3 05/0306/12/2017 MCG/ACT [...] as of this encounter Care Teams Pharmacy Associate Relationship Specialty Start Date End Date Vanda Guerrero MD PCP - General Internal Medicine 04/08/15 01/08/19 [address]305 [facility] [place] [address] Vanda Guerrero MD PCP - Assigned PCP 07/24/16 06/15/18 [address] [facility] [place] [address] documented as of this encounter
--- OUTSIDE RECORDS SUMMARY | 2022-05-09 13:28 | XMS_ITS | Encounter Summary ---
:1965 Author Organization [place] Address [address] [place] [address] Care Team Providers Name Role Phone Vanda Guerrero MD Primary Care Provider [phone] Vanda Guerrero MD Unavailable Reason for Referral Diagnostic Imaging Ultrasound - Closed Specialty Diagnoses / Procedures Referred By Contact Refer red To Contact Radiology. Diagnoses Alkaline phosphatase elevation Vanda Guerrero MD Ultrasound Rscc Procedures US Abdomen Limited 3305 [facility] [address] [place] [place] [address] [address] Phone: Fax: Referral ID Status Reason Start Date Expiration Date Visits Requ ested Visits Authorized [id number] Closed 06/15/2017 06/15/2018 1 1 NICAL ENGINEER Reason for Visit Diagnostic Imaging Ultrasound - Closed Specialty Diagnoses / Procedures Referred By Contact Refer red To Contact Radiology. Diagnoses Alkaline phosphatase elevation Vanda Guerrero MD Ultrasound Rscc Procedures US Abdomen Limited [address] [place] [address] [place] [place] [address] [address] Phone: Fax: Referral ID Status Reason Start Date Expiration Date Visits Requ ested Visits Authorized [id number] Closed 06/15/2017 06/15/2018 1 1 Encounter Details Date Type Department Care Team Description 06/21/2017 Hospital Encounter [facility] Felicia Toribio MD [facility] Imaging [address]305 [facility] elevation [address] [place] [address] [place], [place] [phone] [address] (Work) [phone] Social History Tobacco Use Types Packs/Day Years [...] How often do you attend episcopal or yazidi Patient refused 08/08/2019 services? Do [...] capsule 8 capsule 0 017 01/02/2019 D3) 89511 UNITS (50,000 Units) by capsuleIndications: mouth once [...] or female climacteric states fluticasone (FLONASE) 50 [place] 1-2 sprays 3 Bottle 3 06/1208/07/2019 MCG/ACT [...] AM Alkaline phosph atase Results for this TECHNICAL ENGINEER elevation procedure are i n the results section. documented in this encounter Results US Abdomen Limited (06/21/2017 10:11 AM TECHNICAL ENGINEER) Anatomical Region Laterality Modality Abdomen/Pelvis Ultrasound Specimen (Source) Anatomical Location Collection Method / Collectio n Time Received Time / Laterality Volume Impressions 06/21/2017 10:49 AM TECHNICAL ENGINEER IMPRESSION: ??Fatty infiltration of the liver. No gallstones or bile duct dilatation. DWIGHT LOZA MD Narrative 06/21/2017 10:49 AM TECHNICAL ENGINEER ULTRASOUND ABDOMEN LIMITED 06/21/2017 10:11 AM HISTORY: [...] as of this encounter Care Teams Industrial Fabric Cutter Relationship Specialty Start Date End Date Vanda Guerrero MD PCP - General Internal Medicine 04/08/15 01/08/[address] [place] [address] [place] [address] Vanda Guerrero MD PCP - Assigned PCP 07/24/16 06/15/[address] [place] [address] [place] [address] documented as of this encounter
--- OUTSIDE RECORDS SUMMARY | 2022-05-09 13:28 | XMS_ITS | Encounter Summary ---
:1965 Author Organization [facility] Address [address] [place] [address] Care Team Providers Name Role Phone Vanda Guerrero MD Primary Care Provider [phone] Vanda Guerrero MD Unavailable Reason for Visit Reason Onset Date Comments Refill Request 11/01/2016 gabapentin (NEURONTI N) 300 MG capsule Encounter Details Date Type Department Care Team Description 11/01/2016 Refill [facility] Vanda Guerrero R efill Request Clinic Pino SALDANA (gabapentin (NEURONTIN) [address] [place] [address] [facility] 300 M G capsule) [facility] [address] [place] [address] [place] [address] [phone] Social History Tobacco Use Types Packs/Day Years [...] # refills: 11 Last Office Visit with [facility], [facility] or Health prescribing provider: 09/25/16 Future Office visit: Routing refill request to provider for review/approval because: Drug not on the [facility], [facility] or M Health refill protocol or [...] as of this encounter Care Teams Laser Beam Color Scanner Operator Relationship Specialty Start Date End Date Vanda Guerrero MD PCP - General Internal Medicine 04/08/15 01/08/19 [address] [facility] [place] [address] Vanda Guerrero MD PCP - Assigned PCP 07/24/16 06/15/18 [address] [facility] [place] [address] documented as of this encounter
--- OUTSIDE RECORDS SUMMARY | 2022-05-09 13:28 | XMS_ITS | Encounter Summary ---
:1965 Author Organization [facility] Address [address] [place] [address]. [place] [address] Care Team Providers Name Role Phone Vanda Guerrero MD Primary Care Provider [phone] Vanda Guerrero MD Unavailable Reason for Visit Reason Comments RECHECK pt still having some pain an d swelling where the incision was, gets more and more swollen throughout the day Encounter Details Date Type Department Care Team Description 12/19/2016 Office Visit [facility] Agatha Nieves, Left fo ot pain (Primary Dx); Clinic [place] DPM, Podiatry/Foot Acute left ankle pain; [address] and Ankle Surgery Type 2 diabetes mellitus without complic ation, without long-term current use of insulin (H); [place] [address] Edema of left lower extremity; [address] [place] [address] cavus, congenital [phone] [place] [address] (Wo rk) Social History Tobacco [...] organizations such as No 08/08/2019 yarsanism groups, [employer], fraternal or athletic groups, or school [...] in this encounter Patient Instructions Patient InstructionsAgatha Nieves DPM, Podiatry/Foot and Ankle Surgery - 12/19/2016 10:[address] [facility] LOCATIONS: SUNDAY AM - [place] SUNDAY - [place] [address] [facility] [address] [place] [address] [place] [address] / FX [phone] / FX [phone] SUNDAY - [place] SUNDAY AM - [facility] [address] [place] [address] [place] [address] [place] [address] / FX [phone] SUNDAY PM - [place] SCHEDULE SURGERY: [phone] [place] [address] BILLING QUESTIONS: [phone] [place] [address] AFTER HOURS: / FX [phone] APPOINTMENTS: [phone] DIABETES AND YOUR FEET Diabetes can result [...] 2000 IU daily), Alpha-Lipoic Acid (600-1800mg daily), Lsrzpg-U-Anjtcsyec (500-1000mg TID, L-methyl folate (1500mcgdaily) Metformin can [...] trim your own toenails contact [employer] ([phone]) or [employer] ([phone]). THINGS TO AVOID DOING 1. Do not [...] you smoke, stop!!! Home Medical Equipment: 1. [facility] - [address] [facility] Center[facility] Photo StoriesRobert F. Kennedy [facility], [phone] 2. [facility] -[address] [address]: [address] [place] 3. [facility] (knee walkers and power scooters) - [address] [facility] Shana Ney, or [address] [facility] Mahesh Ness, [phone]. 4. [facility] - [address], [address] [facility], [address] [place] [address]. Body Mass Index (BMI) Many things can [...] Nieves DPM, Podiatry/Foot and Ankle Surgery - 12/19/2016 [...] Will call her with MRI results. Agatha Nieves DPM, Podiatry/Foot and Ankle Surgery [...] stress frac ture. ABRAHAM BAEZ MD Agatha Nieves DPM, Podiatry/Foot and Ankle Surgery IMG MRI [...] degenera tive arthrosis. ABRAHAM BAEZ MD Agatha Nieves DPM, Podiatry/Foot and Ankle Surgery IMG MRI [...] as of this encounter Care Teams High Lighter Relationship Specialty Start Date End Date Vanda Guerrero MD PCP - General Internal Medicine 04/08/15 01/08/19 [address] [facility] [address] A[place], [place] [id number] Vanda Guerrero MD PCP - Assigned PCP 07/24/16 06/15/18 [address] [facility] [place] [address] documented as of this encounter
--- OUTSIDE RECORDS SUMMARY | 2022-05-09 13:28 | XMS_ITS | Encounter Summary ---
:1965 Author Organization [facility] Address [address] [place] [address] Care Team Providers Name Role Phone Vanda Guerrero MD Primary Care Provider [phone] Vanda Guerrero MD Unavailable JeanaNoreen girard EKG MONITOR BARREL FILLER Unavailable JeanaNoreen girard EKG MONITOR BARREL FILLER Unavailable JeanaNoreen girard EKG MONITOR BARREL FILLER Primary Care Provider [phone] Kalyan Galvan Unavailable Unavailable Lashae Trevino [facility] Unavailable [phone] Eduardo Sharma MD Unavailable Rios Monteiro MD Unavailable Marcelo Artis-C Unavailable [phone] Rodrigo ManC Unavailable [phone] Reason for Visit Reason Comments Medication Refill simvastatin (ZOCOR) 20 MG ta blet Encounter Details Date Type Department Care Team Description 02/15/2017 Refill [facility] Vanda Guerrero M edication Refill Clinic Pino SALDANA (simvastatin (ZOCOR) 20 [address] [place] [address]305 [facility] SYSTEM MG ta blet) [facility] [address] [place] [address] [place] [address] [phone] Social History Tobacco Use Types Packs/Day Years [...] How often do you attend protestant or yazidism Patient refused 08/08/2019 services? Do [...] # refills: 3 Last Office Visit with [facility], [facility] or [facility] prescribing provider: 09/25/2016 Lab Results Component [...] athologist Signature Cholesterol 178 <200 mg/dL 02/17/2017 [facility] 2:14 PM CDT [facility] Triglycerides 121 <150 mg/dL 02/17/2017 [facility] 2:14 PM T [facility] Comment: Fasting specimen HDL Cholesterol 43 (L) >49 mg/dL 02/17/2017 2:14 PM [facility] LDL Cholesterol 111 (H) <100 mg/dL 02/17/2017 2:14 PM [facility] Calculated CDT [facility] Comment: Above desirable: ??100-129 mg/dl Borderline High: ??130-159 mg/dL High: ? 160-189 mg/dL Very high: ? >189 mg/dl Non HDL Cholesterol 135 (H) <130 mg/dL 02/17/2017 2:14 PM [facility] Comment: Above Desirable: ??130-159 mg/dl Borderline high: ??160-189 mg/dl High: ? 190-219 mg/dl Very high: ? >219 mg/dl Specimen Anatomical Collection Method Collection Time Receive d Time (Source) Location / / Volume Laterality Blood specimen 02/17/2017 9:13 AM 017 9:18 (specimen) CDT AM CDT Vanda Guerrero MD LAB - BLOOD ORDERABLES Performing Organization Address City/State/ZIP Code Phon e Number [facility] [address] [place] [address] documented in this encounter Visit Diagnoses Diagnosis Hyperlipidemia LDL goal <100 Other and unspecified hyperlipidemia documented in this encounter Additional Health Concerns Infection Onset Date Last Indicated Resolved Time Rule Out COVID-19 08/25/2020 08/25/2020 08/26/2020 3:2 3 PM CDT Assessment Noted Time PHQ-9 Depression Total Score: 9 10/12/2016 7:16 AM CDT documented as of this encounter Care Teams Skein Yard Drier Relationship Specialty Start Date End Date Vanda Guerrero, PCP - General Internal Medicine 04/08/15 01/08/[address] [facility] [place] [address] Vanda Guerrero, PCP - Assigned PCP 07/24/16 06/15/[address] [facility] [place] [address] [place]en [place] PCP - Assigned PCP 06/16/18 08/13/18 SEAN Haley BARREL FILLER [facility] [facility] [place] [address] N[place]en [place] PCP - General Nurse Practitioner 01/09/19 12/12/21 SEAN Haley BARREL FILLER [address] [facility] [address] [facility] [address] [place] [id number] N[place]en [place] Assigned PCP 06/16/18 SEAN Haley BARREL FILLER [address] [place] [address] [place] [id number] Kalyan Galvan Personal Advocate & 08/08/19 Liaison (PAL) Lashae Trevino Pharmacist Pharmacist 10/14/19 12/01/20 [facility] [address] [facility] [address] [place], [place] [id number] Eduardo Sharma MD Assigned Sleep Provider 04/02/20 05/07/21 [address] [place] [address] Rios Monteiro MD Assigned Musculoskeletal 04/02/20 08/24/20 [address] [facility] [address] Provider [place] [address] [place], [place] [address] Marcelo Artis Assigned Musculoskeletal 08/25/20 08/20/21 MIKAYLA Nuno Provider [address] [facility] [address] [place] [address] [place] [address] Rodrigo Man Assigned Surgical 08/25/2011/27 MIKAYLA Lacy Provider [address] [place] [address] documented as of this encounter
--- OUTSIDE RECORDS SUMMARY | 2022-05-09 13:28 | XMS_ITS | Encounter Summary ---
:1965 Author Organization [facility] Address [address] [place] [address] Care Team Providers Name Role Phone Vanda Guerrero MD Primary Care Provider [phone] Vanda Guerrero MD Unavailable Reason for Visit Reason Onset Date Comments Refill Request 12/10/2016 tiZANidine (ZANAFLEX ) 4 MG tablet Encounter Details Date Type Department Care Team Description 12/10/2016 Refill [facility] Vanda Guerrero R efill Request Clinic Pino SALDANA (tiZANidine (ZANAFLEX) [address] [place] [address] [facility] 4 MG tablet) [facility] [address] [place] [address] [place] [address] [phone] Social History Tobacco Use Types Packs/Day Years [...] How often do you attend gnosticist or amish Patient refused 08/08/2019 services? Do [...] Agatha Null DPM, Podiatry/Foot and Ankle [facility] [address] [place] [address] Routing refill request to provider for review/approval [...] as of this encounter Care Teams Teacher [employer] Relationship Specialty Start Date End Date Vanda Guerrero MD PCP - General Internal Medicine 04/08/15 01/08/[address] [place] [address] [place] [address] Vanda Guerrero MD PCP - Assigned PCP 07/24/16 06/15/[address] [place] [address] [place] [address] documented as of this encounter
--- OUTSIDE RECORDS SUMMARY | 2022-05-09 13:28 | XMS_ITS | Encounter Summary ---
:1965 Author Organization [place] Address [address] [place] [address] Care Team Providers Name Role Phone Vanda Guerrero MD Primary Care Provider [phone] Vanda Guerrero MD Unavailable Reason for Visit Reason Onset Date Comments Refill Request 11/29/2016 not needed - choleca lciferol (VITAMIN D3) 31343 UNITS capsule Encounter Details Date Type Department Care Team Description 11/29/2016 Refill [facility] Vanda Guerrero Refill Request (not needed Clinic Pino Toribio MD - cholecalciferol (VITAMIN [address] [place] [address] [place] D3) 5 0000 UNITS capsule) [facility] [address] [place] [address] [place] [address] [phone] Social History Tobacco Use Types Packs/Day Years [...] How often do you attend shinto or methodist Patient refused 08/08/2019 services? Do [...] the patient. I will also send a [email or web address] message. Telephone Encounter - Marisa aMtthew - 11/29/2016 4:03 PM CDT cholecalciferol (VITAMIN D3) 07032 UNITS capsule Last Written Prescription Date: 09/27/2016 Last Fill Quantity: 8, # refills: 0 Last Office Visit with [facility], P or [facility] prescribing provider: 09/25/2016 documented in this encounter Plan of Treatment Not on filedocumented as of this encounter Visit Diagnoses Diagnosis Vitamin D deficiency Unspecified vitamin D deficiency documented in this encounter Additional Health Concerns Assessment Noted Time PHQ-9 Depression Total Score: 9 10/12/2016 7:16 AM CDT documented as of this encounter Care Teams Net Developer With Wcf Relationship Specialty Start Date End Date Vanda Guerrero MD PCP - General Internal Medicine 04/08/15 01/08/[address] [facility] [place] [address] Vanda Guerrero MD PCP - Assigned PCP 07/24/16 06/15/[address] [facility] [place] [address] documented as of this encounter
--- OUTSIDE RECORDS SUMMARY | 2022-05-09 13:28 | XMS_ITS | Encounter Summary ---
:1965 Author Organization [place] Address [address] [place] [address] Care Team Providers Name Role Phone Vanda Guerrero MD Primary Care Provider [phone] Vanda Guerrero MD Unavailable Reason for Visit (Routine) - Closed Specialty Diagnoses / Procedures Referred By Contact Refer red To Contact Cardiology Diagnoses EPIC ORDER SB PT PREP INFORMED [facility] Electrocardiology Procedures EKG STRESS NM LEXISCAN [address] [place], [place] [address] Phone: Referral ID Status Reason Start Date Expiration Date Visits Requ ested Visits Authorized [id number] Closed 10/17/2016 10/17/2017 1 1 Encounter Details Date Type Department Care Team Description 10/17/2016 Hospital Encounter [place] Vanda Watkins history of [place] (myocardial infarction); Electrocardiolgy MD Catarino Atypical chest pain [address] [place], [place] [address] [place] [address] Social History Tobacco Use Types [...] How often do you attend confucianist or advent Patient refused 08/08/2019 services? Do you belong to any clubs or organizations such as No 08/08/2019 confucianist groups, [employer], fraternal or athletic groups, or school groups? [...] capsule 8 capsule 0 017 01/02/2019 D3) 52508 UNITS (50,000 Units) by capsuleIndications: mouth once [...] climacteric states times weekly fluticasone (FLONASE) 50 [place] 1-2 sprays 3 Bottle 3 05/0306/12/2017 MCG/ACT [...] as of this encounter Care Teams House Visitor Relationship Specialty Start Date End Date Vanda Guerrero MD PCP - General Internal Medicine 04/08/15 01/08/19 [address] [facility] [place] [id number] Vanda Guerrero MD PCP - Assigned PCP 07/24/16 06/15/18 [address] [facility] [place] [id number] documented as of this encounter
--- OUTSIDE RECORDS SUMMARY | 2022-05-09 13:28 | XMS_ITS | Encounter Summary ---
:1965 Author Organization [place] Address [address] [place] [address] Care Team Providers Name Role Phone Vanda Guerrero MD Primary Care Provider [phone] Vanda Guerrero MD Unavailable Reason for Visit Reason Comments Medication Refill topiramate (TOPAMAX) 50 MG t ablet Encounter Details Date Type Department Care Team Description 12/11/2016 Refill M [facility] Vanda Guerrero M edication Refill Clinic Pino SALDANA (topiramate (TOPAMAX) [address] [place] 3305 [facility] 50 MG tablet) [facility] [address] [place] [address] [place] [address] [phone] Social History Tobacco Use Types Packs/Day Years [...] How often do you attend religion or confucianist Patient refused 08/08/2019 services? Do [...] documented as of this encounter Care Teams Icu Manager Relationship Specialty Start Date End Date Vanda Guerrero MD PCP - General Internal Medicine 04/08/15 01/08/[address] [place] [address] [place] [id number] Vanda Guerrero MD PCP - Assigned PCP 07/24/16 06/15/[address] [place] [address] [place] [address] documented as of this encounter
--- OUTSIDE RECORDS SUMMARY | 2022-05-09 13:28 | XMS_ITS | Encounter Summary ---
:1965 Author Organization [place] Address [address] [place] [address] Care Team Providers Name Role Phone Vanda Guerrero MD Primary Care Provider [phone] Vanda Guerrero MD Unavailable Reason for Visit Reason Comments Medication Refill tiZANidine (ZANAFLEX) 4 MG t ablet Encounter Details Date Type Department Care Team Description 05/05/2017 Refill [facility] Vanda Guerrero M edication Refill Clinic Pino SALDANA (tiZANidine (ZANAFLEX) [address] [place] 3300 [facility] 4 MG tablet) [facility] [address] [place] [address] [place] [address] [phone] Social History Tobacco Use Types Packs/Day Years [...] How often do you attend anabaptism or adventism Patient refused 08/08/2019 services? Do [...] on the [facility] refill protocol Kirsten Casillas, visitor services coordinator Nurse ERY TEACHER Telephone Encounter - Efren Pryor - 05/06/2017 7:37 PM CST [place]: 12/25/2016 ERY TEACHER documented in this encounter Plan of Treatment Not on filedocumented as of this encounter Visit Diagnoses Diagnosis Cervicalgia History of fusion of cervical spine Arthrodesis status History of lumbar fusion documented in this encounter Additional Health Concerns Assessment Noted Time PHQ-9 Depression Total Score: 9 10/12/2016 7:16 AM CDT documented as of this encounter Care Teams Web Marketing Intern Relationship Specialty Start Date End Date Vanda Guerrero MD PCP - General Internal Medicine 04/08/15 01/08/[address] [facility] [address] [place], [place] [id number] Vanda Guerrero MD PCP - Assigned PCP 07/24/16 06/15/18 [address] [facility] [place] [id number] documented as of this encounter
--- OUTSIDE RECORDS SUMMARY | 2022-05-09 13:28 | XMS_ITS | Encounter Summary ---
:1965 Author Organization [place] Address [address] [place] [address] Care Team Providers Name Role Phone Vanda Guerrero MD Primary Care Provider [phone] Vanda Guerrero MD Unavailable Reason for Visit Reason Comments Medication Refill omeprazole (PRILOSEC) 20 MG capsule Encounter Details Date Type Department Care Team Description 05/04/2017 Refill [facility] Vanda Guerrero M edication Refill Clinic Pino SALDANA (omeprazole (PRILOSEC) [address] [place] [address] [facility] 20 MG capsule) [facility] [address] [place] [address] [place] [address] [phone] Social History Tobacco Use Types Packs/Day Years [...] often do you attend latter day or samaritan Patient refused 08/08/2019 services? Do [...] approved through 10/2019. Refills sent. Kirsten Casillas, coding coordinator Nurse SEWER MACHINE Telephone Encounter - Marisa Matthew - 05/04/2017 8:18 AM CST [place] 09/25/2016 SEWER MACHINE documented in this encounter Plan of Treatment Not on filedocumented as of this encounter Visit Diagnoses Diagnosis Gastroesophageal reflux disease without esophagitis Esophageal reflux documented in this encounter Additional Health Concerns Assessment Noted Time PHQ-9 Depression Total Score: 9 10/12/2016 7:16 AM CDT documented as of this encounter Care Teams Union Organiser Relationship Specialty Start Date End Date Vanda Guerrero MD PCP - General Internal Medicine 04/08/15 01/08/[address] [place] [address] [place] [address] Vanda Guerrero MD PCP - Assigned PCP 07/24/16 06/15/[address] [place] [address] [place] [address] documented as of this encounter
--- OUTSIDE RECORDS SUMMARY | 2022-05-09 13:28 | XMS_ITS | Encounter Summary ---
:1965 Author Organization [place] Address [address] [place] [address]. [place] [address] Care Team Providers Name Role Phone Vanda Borja MD Primary Care Provider Vanda Borja MD Unavailable Encounter Details Date Type Department Care Team Description 02/17/2017 Orders Only [facility] Thea vated alkaline phosphatase level; [facility] Hypernatremia; [address] [place] Vitamin D deficiency; [address] Hyperlipidemia [...] How often do you attend zoroastrian or buddhist Patient refused 08/08/2019 services? Do [...] 67 (H) 0 - 40 U/L 02/20/2017 [facility] 7:47 AM CDT [facility] Specimen Anatomical Collection Method Collection Time Receive d Time (Source) Location / / Volume Laterality Blood specimen 02/17/2017 9:13 AM 017 8:18 (specimen) CDT PM CDT Vanda Borja MD LAB - BLOOD ORDERABLES Performing Organization Address City/State/ZIP Code Phon e Number [facility] [address] [place] [address] (ABNORMAL) Lipid panel reflex to direct LDL (02/17/2017 9:13 AM CDT) athologist Signature Cholesterol 178 <200 mg/dL 02/17/2017 [facility] 2:14 PM CDT [facility] Triglycerides 121 <150 mg/dL 02/17/2017 [facility] 2:14 PM CDT [facility] Comment: Fasting specimen HDL Cholesterol 43 (L) >49 mg/dL 02/17/2017 2:14 PM [facility] CDT [facility] LDL Cholesterol 111 (H) <100 mg/dL 02/17/2017 2:14 PM [facility] Calculated CDT [facility] Comment: Above desirable: ??100-129 mg/dl Borderline High: ??130-159 mg/dL High: ? 160-189 mg/dL Very high: ? >189 mg/dl Non HDL Cholesterol 135 (H) <130 mg/dL 02/17/2017 2:14 PM [facility] CDT [facility] Comment: Above Desirable: ??130-159 mg/dl Borderline high: ??160-189 mg/dl High: ? 190-219 mg/dl Very high: ? >219 mg/dl Specimen Anatomical Collection Method Collection Time Receive d Time (Source) Location / / Volume Laterality Blood specimen 02/17/2017 9:13 AM 017 9:18 (specimen) CDT AM CDT Vanda Borja MD LAB - BLOOD ORDERABLES Performing Organization Address City/State/ZIP Code Phon e Number [facility] [address] [place] [address] Vitamin D Deficiency (02/17/2017 9:13 AM CDT) athologist Signature Vitamin D 33 20 - 75 02/19/[address] [facility] ug/L 2:25 PM CDT [facility] Comment: Season, race, dietary intake, and treatm ent affect the concentration of 05-nxzyusu-Qeymids D. Values may decreas e during winter [...] Phon e Number [facility] [address] [place] [address] [facility] (ABNORMAL) Comprehensive metabolic panel (02/17/2017 9:13 AM CDT) Analysis Performed At Patho logist Time Signature Sodium 145 (H) 133 - 144 02/17/2017 [place] mmol/L 2:14 PM T [facility] Potassium 3.9 3.4 - 5.3 02/17/2017 [place] mmol/L 2:14 PM T [facility] Chloride 111 (H) 94 - 109 02/17/2017 [place] mmol/L 2:14 PM T [facility] Carbon Dioxide 28 20 - 32 02/17/2017 [place] mmol/L 2:14 PM T [facility] Anion Gap 6 3 - 14 02/17/2017 [place] mmol/L 2:14 PM T [facility] Glucose 137 (H) 70 - 99 02/17/2017 [place] mg/dL 2:14 PM T [facility] Comment: Fasting specimen Urea Nitrogen 12 7 - 30 mg/dL 02/17/2017 2:14 PM T [facility] Creatinine 0.75 0.52 - 1.04 mg/dL 02/17/2017 2:14 PM CD T [facility] GFR Estimate 80 >60 mL/min/1.7m2 02/17/2017 2:14 PM C DT [facility] Comment: Non GFR Calc GFR Estimate If >90 >60 mL/min/1.7m2 02/17/2017 2:14 P M [facility] Black [facility] Comment: GFR Calc Calcium 9.1 8.5 - 10.1 02/17/2017 2:14 PM [facility] mg/dL [facility] Bilirubin Total 0.5 0.2 - 1.3 02/17/2017 2:14 PM [facility] mg/dL [facility] Albumin 3.5 3.4 - 5.0 g/dL 02/17/2017 2:14 PM [facility] Protein Total 7.3 6.8 - 8.8 g/dL 02/17/2017 2:14 PM [facility] Alkaline Phosphatase 169 (H) 40 - 150 U/L 02/17/2017 2:14 PM [facility] ALT 32 0 - 50 U/L 02/17/2017 2:14 PM [facility] CDT [facility] AST 17 0 - 45 U/L 02/17/2017 2:14 PM [facility] Aleyda [place] CDT [facility] Specimen Anatomical Collection Method Collection Time Receive d Time (Source) Location / / Volume Laterality Blood specimen 02/17/2017 9:13 AM 017 9:18 (specimen) CDT AM CDT Vanda Borja MD LAB - BLOOD ORDERABLES Performing Organization Address City/State/ZIP Code Phon e Number [facility] [address] [place] [address] documented in this encounter Visit Diagnoses Diagnosis Elevated alkaline phosphatase level Other nonspecific abnormal serum enzyme levels Hypernatremia Hyperosmolality and/or hypernatremia Vitamin D deficiency Unspecified vitamin D deficiency Hyperlipidemia LDL goal <100 Other and unspecified hyperlipidemia documented in this encounter Additional Health Concerns Assessment Noted Time PHQ-9 Depression Total Score: 9 10/12/2016 7:16 AM CDT documented as of this encounter Care Teams Dramatic Art Teacher Relationship Specialty Start Date End Date Vanda Borja MD PCP - General Internal Medicine 04/08/15 01/08/19 [address] [facility] [place] [id number] Vanda Borja MD PCP - Assigned PCP 07/24/16 06/15/18 [address] [facility] [place] [id number] documented as of this encounter
--- OUTSIDE RECORDS SUMMARY | 2022-05-09 13:28 | XMS_ITS | Encounter Summary ---
:1965 Author Organization [place] Address [address] [place] [address] Care Team Providers Name Role Phone Vanda Guerrero MD Primary Care Provider [phone] Vanda Guerrero MD Unavailable Reason for Visit Reason Comments Diabetes Education Encounter Details Date Type Department Care Team Description 11/14/2016 Allied Health/Nurse [facility] Diabetes Education Visit [address] [place] [address] Social History Tobacco Use Types Packs/Day [...] water, Diet [place] (trying to reduce) Cultural/bahai diet restrictions: No Biggest Challenge to Healthy [...] Understanding Diabetes Booklet, Carbohydrate Counting, My Plate Special Delivery Clerk, Diabetes on a Budget Healthy Eating information [...] resources (magazines, books, etc.), Follow-up visit with deliverer outside and Follow-up with primary care provider Wilda Fernandez RD, CDE Diabetes Kiln Feeder Time Spent: 60 minutes Encounter Type: Individual [...] of this encounter Care Teams Windows Server Architect Relationship Specialty Start Date End Date Vanda Guerrero MD PCP - General Internal Medicine 04/08/15 01/08/19 [address] [facility] [place] [id number] Vanda Guerrero MD PCP - Assigned PCP 07/24/16 06/15/18 [address] [facility] [place] [id number] documented as of this encounter
--- OUTSIDE RECORDS SUMMARY | 2022-05-09 13:29 | XMS_ITS | Encounter Summary ---
:1965 Author Organization [place] Address [address] [place] [address]. [place] [address] Care Team Providers Name Role Phone Vanda Guerrero MD Primary Care Provider [phone] Reason for Visit Reason Comments Facial Pain 2-3 days, left side of face, swelling, pain with eating, tender to the touch. URI 1 week, fever, congestion, c ough, ear pain and dizziness. Encounter Details Date Type Department Care Team Description 07/13/2016 Office Visit [facility] Santos Alegria Acute si nusitis with symptoms > 10 days (Primary Dx); Urgent Care Pino Benítez PA-C Acute suppurative otitis media of both e ars without spontaneous rupture of tympanic membranes, recurrence not specified [address] [place] [facility] [address] [place] [address] [address] [address] [place] [address] Social History Tobacco Use [...] How often do you attend sikh or methodist Patient refused 08/08/2019 services? Do [...] Comments Blood Pressure 112/68 07/13/2016 11:09 AM GLOBAL PRODUCT MANAGER Pulse 94 07/13/2016 11:09 AM GLOBAL PRODUCT MANAGER Temperature 37.1 ??C (98.7 ??F) 07/13/2016 11:09 AM GLOBAL PRODUCT MANAGER Respiratory Rate - - Oxygen Saturation 98% 07/13/2016 11:09 AM GLOBAL PRODUCT MANAGER Inhaled Oxygen Concentration - - Weight 86.6 kg (191 lb) 07/13/2016 11:09 AM GLOBAL PRODUCT MANAGER Height 157.5 cm (5' 2) 07/13/2016 11:09 AM GLOBAL PRODUCT MANAGER Body Mass Index 34.93 07/13/2016 11:09 AM GLOBAL PRODUCT MANAGER documented in this encounter Patient Instructions [...] a towel soaked in hot water. Or, metal miner blasting theshower and direct the hot spray onto your face. Using a vaporizer along with a menthol rub at night may also help.? An??expectorant??containing guaifenesin may help thin the mucus and promote drainage from the sinuses. ?? Houx-era-iwnfkfg??decongestants??may be used unless a similar medicine was [...] decongestants. They can raise blood pressure.) ?? Aefl-col-wlsavgr??antihistamines??may help if allergies contributed to your sinusitis. [...] Symptoms not resolving within 10 days ?? [phone] [employer]. [address] [place] [address]. All rights reserved. This information is not intended as a substitute for professional medical care. Always follow your healthcare professional's instructions. [place] PRODUCT MANAGER documented in this encounter Progress Notes Santos [...] fail to fully resolve with above tx. [place] PRODUCT MANAGER documented in this encounter Nursing Notes Gisele [...] using cuff size: large Gisele Patel MA [place] PRODUCT MANAGER documented in this encounter Plan [...] documented as of this encounter Care Teams Lactation Consultant Relationship Specialty Start Date End Date Vanda Guerrero MD PCP - General Internal Medicine 04/08/15 01/08/[address] [facility] [address] [place], [place] [address] documented as of this encounter
--- OUTSIDE RECORDS SUMMARY | 2022-05-09 13:29 | XMS_ITS | Encounter Summary ---
:1965 Author Organization [place] Address [address] [place] [address]. [place] [address] Care Team Providers Name Role Phone Vanda Guerrero MD Primary Care Provider [phone] Reason for Visit [facility] Physical Therapy (Routine) - Closed Specialty Diagnoses / Procedures Referred By Contact Refer red To Contact Physical Therapy Diagnoses new pt needs paperwork post peroneal tendon repair surgery left foot. / Agatha Null DPM, Pod @ Cr Podiatry Agatha Null DPM, Candy Disla, PT Procedures EXTREMITY INITIAL Podiatry/Foot and [facility] [address] [place] [address] [place] [address] [place] [address] Referral ID Status Reason Start Date Expiration Date Visits V isits Requested Authorized LINUS/BC/LFOOT Closed 07/03/2016 06/10/2017 20 18 Encounter Details Date Type Department Care Team Description 07/03/2016 Therapy Visit [facility] Candy Disla Afterca re following surgery of the musculoskeletal system (Primary Dx); Rehabilitation PT Ankle pain, left Services Pino [facility] [address] [facility] [address] [place] [address] [place], [place] [phone] [address] Social History Tobacco Use Types Packs/Day [...] Objective: System Physical Exam General ROS Assessment/Plan: NCE AND ADMINISTRATION MANAGER Candy Disla, PT - 07/03/2016 10:04 AM CST [facility] Initial Evaluation Subjective: Megan [...] for this information) Short term and senior care goals: (See Goal Flow Sheet for this [...] and time spent performing 1:1 timed codes. NCE AND ADMINISTRATION MANAGER documented in this encounter Plan of Treatment Not on filedocumented as of this encounter Procedures Procedure Name Priority Date/Time Associated Diagnosis [facility] THERAPEUTIC Routine 07/03/2016 2:19 PM Aftercare following EXERCISES FINANCE AND ADMINISTRATION MANAGER surgery of the musculoskeletal system Ankle pain, left documented in this encounter Visit Diagnoses Diagnosis Aftercare following surgery of the muscu loskeletal system - Primary Aftercare following surgery of the [facility] loskeletal system, NEC Ankle pain, left Pain in joint, ankle and foot documented in this encounter Additional Health Concerns Assessment Noted Time PHQ-9 Depression Total Score: 11 05/02/2016 7:09 AM CS T documented as of this encounter Care Teams Tier Lift Truck Operator Relationship Specialty Start Date End Date Vanda Guerrero MD PCP - General Internal Medicine 04/08/15 01/08/19 [address] [facility] [place] [address] documented as of this encounter
--- OUTSIDE RECORDS SUMMARY | 2022-05-09 13:29 | XMS_ITS | Encounter Summary ---
:1965 Author Organization [place] Address [address] [place] [address] Care Team Providers Name Role Phone Vanda Guerrero MD Primary Care Provider [phone] Vanda Guerrero MD Unavailable Reason for Visit (Routine) - Closed Specialty Diagnoses / Procedures Referred By Contact Refer red To Contact Radiology / Radiology. Diagnoses EPIC ORDER SB PT PREP INFORMED Rh Nuclear Medicine Procedures NM MPI WITH LEXISCAN [address] [place] [address] Phone: Fax: Referral ID Status Reason Start Date Expiration Date Visits Requ ested Visits Authorized [id number] Closed 10/17/2016 10/17/2017 1 1 Encounter Details Date Type Department Care Team Description 10/17/2016 Hospital Encounter [facility] Vanda Guerrero [facility] [address] [place], [place] [address] [place], [place] [id number] (Wo rk) Social History Tobacco Use Types [...] How often do you attend anglican or yazidism Patient refused 08/08/2019 services? Do you belong to any clubs or organizations such as No 08/08/2019 anglican groups, [employer], fraternal or athletic groups, or school groups? [...] capsule 8 capsule 0 017 01/02/2019 D3) 03669 UNITS (50,000 Units) by capsuleIndications: mouth once [...] climacteric states times weekly fluticasone (FLONASE) 50 [place] 1-2 sprays 3 Bottle 3 05/0306/12/2017 MCG/ACT [...] Routine 10/17/2016 2:34 PM Family history of [place] R esults for this LEXISCAN CDT (myocardial [...] documented as of this encounter Care Teams Peoplesoft Relationship Specialty Start Date End Date Vanda Guerrero MD PCP - General Internal Medicine 04/08/15 01/08/19 [address] [facility] [place] [address] Vanda Guerrero MD PCP - Assigned PCP 07/24/16 06/15/18 [address] [facility] [place] [address] documented as of this encounter
--- OUTSIDE RECORDS SUMMARY | 2022-05-09 13:29 | XMS_ITS | Encounter Summary ---
:1965 Author Organization [place] Address [address] [place] [address]. [place] [address] Care Team Providers Name Role Phone Vanda Guerrero MD Primary Care Provider [phone] Vanda Guerrero MD Unavailable Reason for Visit [facility]US Physical Therapy (Routine) - Closed Specialty Diagnoses / Procedures Referred By Contact Refer red To Contact Physical Therapy Diagnoses new pt needs paperwork post peroneal tendon repair surgery left foot. / Agatha Null DPM, Pod @ [facility] Agatha Null DPM, Candy Disla, PT Procedures EXTREMITY INITIAL Podiatry/Foot and [facility] [address] [place] [address] [facility] [address] [place] [address] [place] [address] Referral ID Status Reason Start Date Expiration Date Visits V isits Requested Authorized LINUS/BC/LFOOT Closed 07/03/2016 06/10/2017 20 18 Encounter Details Date Type Department Care Team Description 08/18/2016 [facility] ain, left; Rehabilitation PT Aftercare following surgery of the [facility] system Services [facility] [address] [facility] [address] [place] [address] [place], [place] [phone] [address] Social History Tobacco Use Types Packs/Day Years [...] How often do you attend sikh or mandaeism Patient refused 08/08/2019 services? Do [...] [facility] NEUROMUSCULAR Routine 08/18/2016 10:39 AM Ankle pain , left RE-EDUCATION CONICAL MIXER Aftercare following surgery of the musculoskeletal system [facility] THERAPEUTIC Routine 08/18/2016 10:39 AM Ankle pain, left EXERCISES CONICAL MIXER Aftercare following surgery of the musculoskeletal system [...] as of this encounter Care Teams Staff Midwife/Apprenticeship Director Relationship Specialty Start Date End Date Vanda Guerrero MD PCP - General Internal Medicine 04/08/15 01/08/19 [address] [facility] [place] [address] Vanda Guerrero MD PCP - Assigned PCP 07/24/16 06/15/[address] [place] [address] [place] [address] documented as of this encounter
--- OUTSIDE RECORDS SUMMARY | 2022-05-09 13:29 | XMS_ITS | Encounter Summary ---
:1965 Author Organization [place] Address [address] [place] [address]. [place] [address] Care Team Providers Name Role Phone Vanda Guerrero MD Primary Care Provider [phone] Vanda Guerrero MD Unavailable Reason for [...] [facility] [address] [place] [address] [facility] [address] [place] [address] [place] [address] Referral ID Status Reason Start Date Expiration Date Visits V isits Requested Authorized LINUS/BC/LFOOT Closed 07/03/2016 06/10/2017 20 18 Encounter Details Date Type Department Care Team Description 07/24/2016 [facility], [facility]; Rehabilitation PT Aftercare following surgery of the [facility] system Services [facility] [address] [facility] [address] [place] [address] [place], [place] [phone] Social History Tobacco Use Types Packs/Day Years [...] How often do you attend baptism or yarsani Patient refused 08/08/2019 services? Do [...] 07/24/2016 1:51 PM Ankle pain, left RE-EDUCATION SHOES HAND SEWER Aftercare following surgery of the musculoskeletal system Z THERAPEUTIC Routine 07/24/2016 1:51 PM Ankle pain, l eft EXERCISES SHOES HAND SEWER Aftercare following surgery of the musculoskeletal system [...] as of this encounter Care Teams Field Software Engineer Relationship Specialty Start Date End Date Vanda Guerrero MD PCP - General Internal Medicine 04/08/15 01/08/19 [address] [facility] [place] [address] Vanda Guerrero MD PCP - Assigned PCP 07/24/16 06/15/[address] [place] [address] [place] [address] documented as of this encounter
--- OUTSIDE RECORDS SUMMARY | 2022-05-09 13:29 | XMS_ITS | Encounter Summary ---
:1965 Author Organization [place] Address [address] [place] [address]. [place] [address] Care Team Providers Name Role Phone Vanda Guerrero MD Primary Care Provider [phone] Vanda Guerrero MD Unavailable Reason for Visit LINUS Physical Therapy (Routine) - Closed Specialty Diagnoses / Procedures Referred By Contact Refer red To Contact Physical Therapy Diagnoses new pt needs paperwork post peroneal tendon repair surgery left foot. / Agatha Null DPM, Pod @ [facility] Agatha Null DPM, Candy Disla, PT Procedures EXTREMITY INITIAL Podiatry/Foot and [facility] Ankle Surgery CENTER [address] [place] [address] [facility] [address] [place] [address] [place] [address] Referral ID Status Reason Start Date Expiration Date Visits V isits Requested Authorized LINUS/BC/LFOOT Closed 07/03/2016 06/10/2017 20 18 Encounter Details Date Type Department Care Team Description 08/04/2016 [facility]le [facility], left; Rehabilitation PT Aftercare following surgery of the [facility] system Services [facility] [address] [facility] [address] [place] [address] [place], [place] [phone] [address] Social History Tobacco Use Types Packs/Day Years [...] How often do you attend temple or voodoo Patient refused 08/08/2019 services? 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 MANAGER ENGAGEMENT Aftercare following surgery of the musculoskeletal system Z THERAPEUTIC Routine 08/04/2016 10:35 AM Ankle pain, left EXERCISES MANAGER ENGAGEMENT Aftercare following surgery of the musculoskeletal system documented in this encounter Visit Diagnoses Diagnosis Ankle pain, left Pain in joint, ankle and foot Aftercare following surgery of the muscu loskeletal system Aftercare following surgery of the [facility] los[facility], NEC documented in this encounter Additional Health Concerns Assessment Noted Time PHQ-9 Depression Total Score: 11 05/02/2016 7:09 AM CS T documented as of this encounter Care Teams Malt Loader Relationship Specialty Start Date End Date Vanda Guerrero MD PCP - General Internal Medicine 04/08/15 01/08/19 [address] [facility] [place] [address] Vanda Guerrero MD PCP - Assigned PCP 07/24/16 06/15/[address] [place] [address] [place] [address] documented as of this encounter
--- OUTSIDE RECORDS SUMMARY | 2022-05-09 13:29 | XMS_ITS | Encounter Summary ---
:1965 Author Organization [place] Address [address] [place] [address]. [place] [address] Care Team Providers Name Role Phone Vanda Guerrero MD Primary Care Provider [phone] Reason for Visit LINUS Physical Therapy (Routine) - Closed Specialty Diagnoses / Procedures Referred By Contact Refer red To Contact Physical Therapy Diagnoses new pt needs paperwork post peroneal tendon repair surgery left foot. / Agatha Null DPM, Pod @ [facility] Agatha Null DPM, Candy Disla, PT Procedures EXTREMITY INITIAL Podiatry/Foot and [facility] Ankle Surgery CENTER [address] [place] [address] [facility] [address] [place] [address] [place] [address] Referral ID Status Reason Start Date Expiration Date Visits V isits Requested Authorized LINUS/BC/LFOOT Closed 07/03/2016 06/10/2017 20 18 Encounter Details Date Type Department Care Team Description 07/14/2016 Therapy Visit [facility] Vadim Banda, Ankle p ain, left (Primary Dx); Rehabilitation PT Aftercare following surgery of the [facility] system Services [facility] [address] [facility] [address] [place] [address] [place], [place] [address] Social History Tobacco Use Types Packs/Day Years [...] How often do you attend hindu or denominational Patient refused 08/08/2019 services? Do [...] [facility] NEUROMUSCULAR Routine 07/14/2016 10:49 AM Ankle pain , left RE-EDUCATION HOME SUPPORT WORKER Aftercare following surgery of the musculoskeletal system [facility] THERAPEUTIC Routine 07/14/2016 10:49 AM Ankle pain, left EXERCISES HOME SUPPORT WORKER Aftercare following surgery of the musculoskeletal system documented in this encounter Visit Diagnoses Diagnosis Ankle pain, left - Primary Pain in joint, ankle and foot Aftercare following surgery of the muscu loskeletal system Aftercare following surgery of the [facility] loskeletal system, NEC documented in this encounter Additional Health Concerns Assessment Noted Time PHQ-9 Depression Total Score: 11 05/02/2016 7:09 AM CS T documented as of this encounter Care Teams Refinery Operator Light Ends Recovery Relationship Specialty Start Date End Date Vanda Guerrero MD PCP - General Internal Medicine 04/08/15 01/08/19 [address] [facility] [place] [address] documented as of this encounter
--- OUTSIDE RECORDS SUMMARY | 2022-05-09 13:29 | XMS_ITS | Encounter Summary ---
:1965 Author Organization [place] Address [address] [place] [address]. [place] [address] Care Team Providers Name Role Phone Vanda Guerrero MD Primary Care Provider [phone] Reason for Visit Reason Comments Surgical Followup Left peroneal tendon repair and transfer DOS 06/10/16 Encounter Details Date Type Department Care Team Description 07/18/2016 Office Visit [facility] Agatha Null, Post-op [facility] DPM, Podiatry/Foot (Primary Dx) [address] [facility] [place] [address] [place] [address] [place] [address] [place], [place] [id number] (Wo rk) Social History Tobacco Use Types [...] How often do you attend episcopalian or confucianist Patient refused 08/08/2019 services? Do [...] Comments Blood Pressure 118/78 07/18/2016 9:54 AM PIPE WRAPPING MACHINE OPERATOR Pulse - - Temperature - - Respiratory Rate - - Oxygen Saturation - - Inhaled Oxygen Concentration - - Weight 86.6 kg (191 lb) 07/18/2016 9:54 AM PIPE WRAPPING MACHINE OPERATOR Height 157.5 cm (5' 2) 07/18/2016 9:54 AM PIPE WRAPPING MACHINE OPERATOR Body Mass Index 34.93 07/18/2016 9:54 AM PIPE WRAPPING MACHINE OPERATOR documented in this encounter Patient Instructions Patient InstructionsLarry Michael - 07/18/2016 10:[address] [facility] Schedule Follow up in 1 month Sunday AM Sunday [facility] [address] [place] [address] [facility] [address] [place] [address] [facility] [address] [place] [address] Sunday PM & Sunday AM Sunday PM Surgery Scheduling Line: [phone] [facility] [address] [place] [address] [facility] [address] [place] [address] Appointment [phone] General After Hours: Patient [phone] WRAPPING MACHINE OPERATOR documented in this encounter Progress Notes Agatha Null, MARÍA, Podiatry/Foot and Ankle Surgery - 07/18/2016 9:58 AM PIPE WRAPPING MACHINE OPERATOR Podiatry / Foot and Ankle Surgery [...] kg). Medication Reconciliation: complete Larry Michael MA WRAPPING MACHINE OPERATOR documented in this encounter Plan of Treatment Not on filedocumented as of this encounter Visit Diagnoses Diagnosis Post-operative state - Primary Other postprocedural status documented in this encounter Additional Health Concerns Assessment Noted Time PHQ-9 Depression Total Score: 11 05/02/2016 7:09 AM CS T documented as of this encounter Care Teams Student Education Specialist Relationship Specialty Start Date End Date Vanda Guerrero MD PCP - General Internal Medicine 04/08/15 01/08/19 [address] [facility] [place] [address] documented as of this encounter
--- OUTSIDE RECORDS SUMMARY | 2022-05-09 13:29 | XMS_ITS | Encounter Summary ---
:1965 Author Organization [place] Address [address] [place] [address] Care Team Providers Name Role Phone Vanda Borja MD Primary Care Provider [phone] Vanda Borja MD Unavailable Reason for Referral Med Therapy Management - Closed Specialty Diagnoses / Procedures Referred By Contact Refer red To Contact Diagnoses Fatigue, unspecified type Type 2 diabetes mellitus without complication, without long-term current use of insulin (H) Fibromyalgia Chronic pain of left ankle Vanda Borja MD [address] [place] [address] Referral ID Status Reason Start Date Expiration Date Visits Requ ested Visits Authorized [id number] Closed 09/25/2016 09/25/2017 1 1 Reason for Visit Reason Comments Diabetes Encounter Details Date Type Department Care Team Description 09/25/2016 Office Visit [facility] Vanda Borja Type 2 diabetes mellitus without complication, without long-term current use of insulin (H) (Primary Dx); Clinic Pino Toribio MD Moderate episode of recurrent major depr essive disorder (H); [address] [place] [address] Fibro myalgia; [facility] Chronic pain of left ankle; [address] [place] [address] Family history of CA (myocardial infarct ion); [place] [address] Atypical chest pain; [phone] Fatigue, unspecified type; Seasonal allerg ic rhinitis [...] How often do you attend jew or restoration Patient refused 08/08/2019 services? Do [...] to set up a stress test in [place], the other to set up a visit [...] MANAGE REFERRAL G89.29 5. Family history of CA (myocardial infarction) Z82.49 NM Exercise stress test [...] measures. See Patient Instructions Vanda Borja MD [facility] [place] documented in this encounter [...] [facility] ug/L 2:25 PM CDT [facility] Comment: Season, race, dietary intake, and treatm ent affect the concentration of 07-vnfcswh-Miymdbf D. Values may decreas e during winter [...] e Number [facility] [address] [place], [place] [address] [place] [address] (ABNORMAL) Comprehensive metabolic panel (02/17/2017 9:13 AM CDT) Analysis Performed At Patho logist Time Signature Sodium 145 (H) 133 - 144 02/17/2017 [place] mmol/L 2:14 PM CDT [facility] Potassium 3.9 3.4 - 5.3 02/17/2017 [place] mmol/L 2:14 PM CDT [facility] Chloride 111 (H) 94 - 109 02/17/2017 [facility] mmol/L 2:14 PM CDT [facility] Carbon Dioxide 28 20 - 32 02/17/2017 [place] mmol/L 2:14 PM [facility] Anion Gap 6 3 - 14 02/17/2017 [place] mmol/L 2:14 PM [facility] Glucose 137 (H) 70 - 99 02/17/2017 [place] mg/dL 2:14 PM [facility] Comment: Fasting specimen Urea Nitrogen 12 7 - 30 mg/dL 02/17/2017 2:[address] [facility] Creatinine 0.75 0.52 - 1.04 mg/dL 02/17/2017 2:[address] [facility] GFR Estimate 80 >60 mL/min/1.7m2 02/17/2017 2:[address] [facility] Comment: Non GFR Calc GFR Estimate If >90 >60 mL/min/1.7m2 02/17/2017 2:14 P M [facility] Black [facility] Comment: GFR Calc Calcium 9.1 8.5 - 10.1 02/17/2017 2:14 PM [facility] LINICS mg/dL [facility] Bilirubin Total 0.5 0.2 - 1.3 02/17/2017 2:14 PM [facility] IEW CLINICS mg/dL [facility] Albumin 3.5 3.4 - 5.0 g/dL 02/17/2017 2:14 PM [facility] EW [facility] Protein Total 7.3 6.8 - 8.8 g/dL 02/17/2017 2:14 PM FA [facility] Alkaline Phosphatase 169 (H) 40 - 150 U/L 02/17/2017 2:14 PM [facility] ALT 32 0 - 50 U/L 02/17/2017 2:14 PM [facility] LINICS [facility] AST 17 0 - 45 U/L 02/17/2017 2:14 PM [facility] LINICS [facility] Specimen Anatomical Collection Method Collection Time Receive d Time (Source) Location / / Volume Laterality Blood specimen 02/17/2017 9:13 AM 017 9:18 (specimen) CDT AM CDT Vanda Borja MD LAB - BLOOD ORDERABLES Performing Organization Address City/State/ZIP Code Phon e Number [facility] [address] [place] [address] Hepatitis C Screen Reflex to HCV RNA Quant and Genotype (09/25/2016 2:30 PM CDT) Component Value Ref Test Analysis Performed At [facility] gist Range Method Time Signature Hepatitis C Nonreactive NR [facility] Antibody Assay performance character istics have not been established for [facility], [place] [facility], and children [facility] Specimen Anatomical Collection Method Collection Time Receive d Time (Source) Location / / Volume Laterality Blood specimen 09/25/2016 2:30 PM 017 (specimen) CDT 11:29 AM CDT Vanda Borja MD LAB - BLOOD ORDERABLES Performing Organization Address City/[facility]/ZIP Code Phon e Number [facility] [address] [place] [address] [facility] CBC with platelets (09/25/2016 2:30 PM [...] LAB - BLOOD ORDERABLES Performing Organization Address City/[facility]/ZIP Code Phon e Number [facility] [address] [place] [address] TSH with free T4 reflex (09/25/2016 2:30 PM CDT) athologist Signature TSH 1.80 0.40 - 4.00 [facility] mU/L [facility] Specimen Anatomical Collection Method Collection Time Receive d Time (Source) Location / / Volume Laterality Blood specimen 09/25/2016 2:30 PM 017 2:31 (specimen) CDT PM CDT Vanda Borja MD LAB - BLOOD ORDERABLES Performing Organization Address City/State/ZIP Code Phon e Number [facility] [address] [place] [address] Vitamin D Deficiency (09/25/2016 2:30 PM CDT) athologist Signature Vitamin D 25 20 - 75 [facility] Deficiency ug/L [facility] Comment: Season, race, dietary intake, and treatm ent affect the concentration of 79-qtoscxd-Mglmfdd D. Values may decrea se during winter [...] e Number [facility] [address] [place] [address] [facility] Hemoglobin A1c (09/25/2016 2:30 PM CDT) athologist Signature Hemoglobin A1C 5.9 4.3 - 6.0 [facility] [place] Specimen Anatomical Collection Method Collection Time Receive d Time (Source) Location / / Volume Laterality Blood specimen 09/25/2016 2:30 PM 017 2:31 (specimen) CDT PM CDT Vanda Borja MD LAB - BLOOD ORDERABLES Performing Organization Address City/State/ZIP Code Phon e Number [address] [address] (ABNORMAL) Comprehensive metabolic panel (09/25/2016 2:30 PM CDT) [facility] Method Time Signature Sodium 148 (H) 133 - 144 [place] mmol/L [facility] Potassium 4.5 3.4 - 5.3 [place] mmol/L [facility] Chloride 113 (H) 94 - 109 [place] mmol/L [facility] Carbon Dioxide 26 20 - 32 [place] mmol/L [facility] Anion Gap 9 3 - 14 [place] mmol/L [facility] Glucose 100 (H) 70 - 99 [place] mg/dL [facility] Urea Nitrogen 13 7 - 30 [place] mg/dL [facility] Creatinine 0.72 0.52 - [place] 1.04 mg/dL [facility] GFR Estimate 85 >60 [place] mL/min/1.7 CLINICS m2 [facility] Comment: Non GFR Calc GFR Estimate If Black >90 >60 mL/min/1.7m2 F [facility] GFR Calc [facility] Calcium 9.3 8.5 - 10.1 mg/dL [place] CLIN ICS [facility] Bilirubin Total 0.2 0.2 - 1.3 mg/dL [facility] Albumin 3.7 3.4 - 5.0 g/dL [facility] Protein Total 7.4 6.8 - 8.8 g/dL [place] CL INICS [facility] Alkaline Phosphatase 165 (H) 40 - 150 U/L [facility] ALT 28 0 - 50 U/L [facility] AST 17 0 - 45 U/L [facility] Specimen Anatomical Collection Method Collection Time Receive d Time (Source) Location / / Volume Laterality Blood specimen 09/25/2016 2:30 PM 017 2:31 (specimen) CDT PM CDT Vanda Borja MD LAB - BLOOD ORDERABLES Performing Organization Address City/State/ZIP Code Phon e Number [facility] [place] [address] [place] [address] Albumin Random Urine Quantitative (09/25/2016 2:30 PM CDT) P athologist Signature Creatinine 128 mg/dL [place] Urine [facility] Albumin Urine 8 mg/L [place] mg/L [facility] Albumin Urine 5.96 0 - 25 [place] mg/g Cr mg/g Cr [facility] Specimen Anatomical Collection Method Collection Time Receive d Time (Source) Location / / Volume Laterality Urine specimen 09/25/2016 2:30 PM 017 2:31 (specimen) CDT PM CDT Vanda Borja MD LAB - URINE ORDERABLES Performing Organization Address City/State/ZIP Code Phon e Number [facility] [address] [place] [address] [phone] [facility] [address] [place] [place] [address], [facility] [phone] documented in this encounter Visit Diagnoses Diagnosis Type 2 diabetes mellitus without complic ation, without long-term current use of insulin (H) - Primary Moderate episode of recurrent major depr essive disorder (H) Fibromyalgia Mylagia and myositis, unspecified Chronic pain of left ankle Family history of CA (myocardial infarct ion) Family history of ischemic [...] documented as of this encounter Care Teams Plant Custodian Relationship Specialty Start Date End Date Vanda Borja MD PCP - General Internal Medicine 04/08/15 01/08/19 [address] [place] [address] Vanda Borja MD PCP - Assigned PCP 07/24/16 06/15/18 [address] [place] [address] documented as of this encounter
--- OUTSIDE RECORDS SUMMARY | 2022-05-09 13:29 | XMS_ITS | Encounter Summary ---
:1965 Author Organization [place] Address [address] [place] [address] Care Team Providers Name Role Phone Vanda Guerrero MD Primary Care Provider [phone] Vanda Guerrero MD Unavailable JeanaNoreen girard PHYSICAL SCIENCES PROFESSOR GLASSWARE VERIFIER Unavailable [phone] JeanaNoreen girard PHYSICAL SCIENCES PROFESSOR GLASSWARE VERIFIER Unavailable [phone] JeanaNoreen girard PHYSICAL SCIENCES PROFESSOR GLASSWARE VERIFIER Primary Care Provider Kalyan Galvan Unavailable Unavailable Lashae Trevino [facility] Unavailable [phone] Eduardo Sharma MD Unavailable Rios Monteiro MD Unavailable Marcelo Artis-C Unavailable [phone] Rodrigo Man-C Unavailable Reason for Visit Reason Onset Date Comments Refill Request 08/30/2016 Metformin 500mg tab Encounter Details Date Type Department Care Team Description 08/30/2016 Refill M [facility] Vanda Guerrero R efill Request Clinic Pino SALDANA (Metformin 500mg tab) [address] [facility] [address] [place] [address] [place] [address] [phone] Social History Tobacco Use Types Packs/Day Years [...] How often do you attend spiritism or voodoo Patient refused 08/08/2019 services? Do [...] # refills: 1 Last Office Visit with [facility] or [facility] prescribing provider: 06/01/16 BP Readings from [...] documented as of this encounter Care Teams Termite Treater Helper Relationship Specialty Start Date End Date Vanda Guerrero, PCP - General Internal Medicine 04/08/15 01/08/19 [address] [facility] [place] [address] Vanda Guerrero, PCP - Assigned PCP 07/24/16 06/15/18 [address] [place] [address] [place] PCP - Assigned PCP 06/16/18 08/13/18 SEAN Haley GLASSWARE VERIFIER [address] [facility] [place] [address] [place] PCP - General Nurse Practitioner 01/09/19 12/12/21 SEAN Haley GLASSWARE VERIFIER [address] [place] [address] [place] Assigned PCP 06/16/18 SEAN Haley GLASSWARE VERIFIER [address] [place] [address] Kalyan Galvan Personal Advocate & 08/08/19 Liaison (PAL) Lashae Trevino Pharmacist Pharmacist 10/14/19 12/01/20 [facility] [address] [place], [place] [id number] Eduardo Sharma MD Assigned Sleep Provider 04/02/20 05/07/[address] [place] [address] [place] [address] Rios Monteiro MD Assigned Musculoskeletal 04/02/20 08/24/[address] Provider [address] [place] [address] Marcelo Artis Assigned Musculoskeletal 08/25/20 08/20/21 MIKAYLA Nuno Provider [address] [facility] [address] [place], [place] [address] Rodrigo Man Assigned Surgical 08/25/2011/27 MIKAYLA Lacy Provider [address] [place] [id number] documented as of this encounter
--- OUTSIDE RECORDS SUMMARY | 2022-05-09 13:29 | XMS_ITS | Encounter Summary ---
:1965 Author Organization [place] Address [address] [place] [address] Care Team Providers Name Role Phone Vanda Guerrero MD Primary Care Provider [phone] Vanda Guerrero MD Unavailable Reason for Visit Reason Onset Date Comments Refill Request 10/06/2016 blood glucose monito ring (ONE TOUCH DELICA) lancets Encounter Details Date Type Department Care Team Description 10/06/[address] [facility] Vanda Guerrero R efill Request (blood Clinic [place] SALDANA glucose monitoring (ONE [address] TOUCH DELICA) lancets) [facility] [address] [place] [address] [place] [phone] Social History Tobacco Use Types Packs/Day Years [...] How often do you attend episcopal or amish Patient refused 08/08/2019 services? Do [...] 10/06/2016 11:35 AM CDT Prescription approved per [facility] Refill Protocol. Kirsten Casillas, selector packer Nurse Telephone Encounter - Meri Palma - 10/06/2016 10:11 AM CDT blood glucose monitoring (ONE TOUCH DELICA) lancets Last Written Prescription Date: 10/07/15 Last Fill Quantity: 1 box, # refills: prn Last Office Visit with [facility], [facility] or [facility] prescribing provider: 09/25/16 Next 5 appointments (look out 90 days) October 11, 2016 2:30 PM CDT [facility] with Sandy Joe[facility] [place] ([facility]) [address] [place] [address] [address] [facility] [address] BP Readings from Last [...] documented as of this encounter Care Teams Cat Wagon Operator Relationship Specialty Start Date End Date Vanda Guerrero MD PCP - General Internal Medicine 04/08/15 01/08/19 [address] [facility] [place] [address] Vanda Guerrero MD PCP - Assigned PCP 07/24/16 06/15/18 [address] [facility] [place] [address] documented as of this encounter
--- OUTSIDE RECORDS SUMMARY | 2022-05-09 13:29 | XMS_ITS | Encounter Summary ---
:1965 Author Organization [place] Address [address] [place] [address]. [place] [address] Care Team Providers Name Role Phone Vanda Guerrero MD Primary Care Provider [phone] Vanda Guerrero MD Unavailable Reason for [...] and [facility]ENTER [address] [place] [facility] [address] [place] [address] [place] [address] Referral ID Status Reason Start Date Expiration Date Visits V isits Requested Authorized LINUS/BC/LFOOT Closed 07/03/2016 06/10/2017 20 18 Encounter Details Date Type Department Care Team Description 09/01/[address], left; Rehabilitation PT Aftercare following surgery of the [facility] Services [facility] [address] [facility] [address] [place] [address] [place], [place] [phone] [address] Social History Tobacco Use Types Packs/Day Years [...] How often do you attend uatsdin or uatsdin Patient refused 08/08/2019 services? Do [...] as of this encounter Care Teams Core Composer Feeder Relationship Specialty Start Date End Date Vanda Guerrero MD PCP - General Internal Medicine 04/08/15 01/08/19 [address] [facility] [place] [address] Vanda Guerrero MD PCP - Assigned PCP 07/24/16 06/15/[address] [place] [address] [place] [id number] documented as of this encounter
--- OUTSIDE RECORDS SUMMARY | 2022-05-09 13:29 | XMS_ITS | Encounter Summary ---
:1965 Author Organization [place] Address [address] [place] [address] Care Team Providers Name Role Phone Vanda Guerrero MD Primary Care Provider [phone] Vanda Guerrero MD Unavailable Reason for Visit Reason Onset Date Comments Refill Request 09/19/2016 ONE TOUCH ULTRA TEST STRIPS Encounter Details Date Type Department Care Team Description 09/19/2016 Refill [facility] Vanda Guerrero R efill Request (ONE Clinic [place] TOUCH ULTRA TEST [address] [place] [facility] STRIP S) [facility] [address] [place] [address] [place] [address] [phone] Social History Tobacco Use Types Packs/Day Years [...] How often do you attend hoahaoism or mandaeism Patient refused 08/08/2019 services? Do [...] CDT [facility] [address] [place] [address] [address] [facility] [address] documented in this encounter Plan of Treatment Not on filedocumented as of this encounter Visit Diagnoses Diagnosis Type 2 diabetes mellitus without complic ation (H) - Primary documented in this encounter Additional Health Concerns Assessment Noted Time PHQ-9 Depression Total Score: 11 05/02/2016 7:09 AM CS T documented as of this encounter Care Teams Customer Service Attendant Relationship Specialty Start Date End Date Vanda Guerrero MD PCP - General Internal Medicine 04/08/15 01/08/[address] [place] [address] [place] [address] Vanda Guerrero MD PCP - Assigned PCP 07/24/16 06/15/[address] [place] [address] [place] [id number] documented as of this encounter
--- OUTSIDE RECORDS SUMMARY | 2022-05-09 13:29 | XMS_ITS | Encounter Summary ---
:1965 Author Organization [place] Address [id number] [place] [address] Care Team Providers Name Role Phone Vanda Guerrero MD Primary Care Provider [phone] Reason for Visit Auth/Cert Specialty Diagnoses / Procedures Referred By Contact Refer red To Contact Surgery Diagnoses Peroneal Tendon tear Rh Periop Services Procedures REPAIR TENDON PERONEAL [address] [place], [place] [address] Phone: Fax: Referral ID Status Reason Start Date Expiration Date Visits Requ ested Visits Authorized [id number] 1 1 Encounter Details Date Type Department Care Team Description 06/08/2016 Anesthesia Event [facility] Olivier Sanchez PeriOp Services MD Sherwin [address] [place] [address] ANESTHESIA [phone] [place], [place] [address] (Wo rk) Anesthesia Record Procedure Summary Procedure Name Responsible Anesthesia Start Anesthesia Stop Time Anesthesiologist Time Left januaryal Garry Sanchez 06/08/16 1008 06/08/16 111 8 tendon repair and MD Sherwin transfer (Left: Ankle) Events Date Time Event Comment 06/08/2016 [...] igned by Bryson Marie on June 08 6 11:18 AM 1118 MD Present Name Total [...] 11/06/19 1901 by Left; Ankle; Carolin Barrera, RN Kim Mcgrath, 11/06/19; 1901 RN Peripheral IV 06/08/16; 1124; [...] Sanchez MD June 08, 2016 11:23 AM GAGE LOAN ASSISTANT Anesthesia Procedure Notes - Garry Sanchez MD [...] trained nor qualified to perform this procedure. GAGE LOAN ASSISTANT Anesthesia Preprocedure Evaluation - Garry Sanchez MD [...] blood products discussed: No . . . GAGE LOAN ASSISTANT documented in this encounter Miscellaneous Notes Anesthesia Care Transfer Note - Bryson Marie APRN BIOLOGICAL TECHNICAL OFFICER - 06/08/2016 11:18 AM CST Patient: Megan [...] prepare to transfer to PACU, Report to PRODUCT MARKETING INTERN. VSS transfer care Vitals: (Last set prior to Anesthesia Care Transfer) Electronically Signed By: Bryson Marie APRN BIOLOGICAL TECHNICAL OFFICER June 08, 2016 11:18 AM GAGE LOAN ASSISTANT documented in this encounter Plan of Treatment Not on filedocumented as of this encounter Procedures Procedure Name Priority Date/Time Associated Diagnosis Comme nts ANE Routine 06/08/2016 10:12 AM Results for this PERIPHERAL/PARAVETE MORTGAGE LOAN ASSISTANT procedur e are in BRAL BLOCK the results section. documented in this encounter Results Peripheral/Paravetebral Block (06/08/2016 10:12 AM MORTGAGE LOAN ASSISTANT) Narrative Garry Sanchez MD - 016 10:12 AM MORTGAGE LOAN ASSISTANT Garry Sanchez MD ? 06/08/2016 10:12 AM [...] scrub. Nerve Stim: Initial Level 1 mA. ??Kimmell t motor response 0.5 mA.. ?? Needle: [...] to perform this procedure. Garry Sanchez MD [place] ANESTHESIA Peripheral/Paravetebral Block (06/08/2016 10:12 AM MORTGAGE LOAN ASSISTANT) Narrative Garry Sanchez MD - 016 10:12 AM MORTGAGE LOAN ASSISTANT Garry Sanchez MD ? 06/08/2016 10:12 AM [...] scrub. Nerve Stim: Initial Level 1 mA. ??Kimmell t motor response 0.5 mA.. ?? Needle: [...] to perform this procedure. Garry Sanchez MD [place] ANESTHESIA documented in this encounter Visit Diagnoses Not on filedocumented in this encounter Administered Medications Inactive Administered Medications - up to 3 most recent administrations Medication Order MAR Action Action Date Dose Rate Site bupivacaine 0.5 % - EPINEPHrine Given 06/08/2016 9:53 AM MORTGAGE LOAN ASSISTANT 40 mLs 1:200,000 injection PRN, Starting on Elda 06/08/16 at 0953, Anesthesia Intra-op ceFAZolin sodium-dextrose (ANCEF) infusi on 2 g Given 06/08/2016 10:08 AM MORTGAGE LOAN ASSISTANT 2 g Routine, 2 g, Intravenous, PRE-OP/PRE-PROCEDURE, Starting on Elda 06/08/16 at 0859, For 1 dose, Give first dose within 1 hour PRIOR to incision. If patient weight is greater than or equal to 120 kg increase dose to 3 g., Indications: Perioperative Pharmacoprophylaxis, Pre-procedure dexamethasone (DECADRON) injection Given 06/08/2016 10:13 AM MORTGAGE LOAN ASSISTANT 8 mg PRN, Administer over 1-4 Minutes, Starting on Elda 06/08/16 at 1013, Anesthesia Intra-op fentaNYL Citrate (PF) (SUBLIMAZE) inject ion Given 06/08/2016 10:13 AM MORTGAGE LOAN ASSISTANT 75 mcg PRN, moderate to severe pain, Starting on Elda 06/08/16 at 0953, Anesthesia Intra-op Given 06/08/2016 9:53 AM MORTGAGE LOAN ASSISTANT 50 mcg glycopyrrolate (ROBINUL) injection Given 06/08/2016 10:13 AM MORTGAGE LOAN ASSISTANT 0.2 mg PRN, Starting on Elda 06/08/16 at 1013, Anesthesia Intra-op ketorolac (TORADOL) injection Given 06/08/2016 10:13 AM MORTGAGE LOAN ASSISTANT 30 mg PRN, moderate pain (4-6), Starting on Elda 06/08/16 at 1013, Anesthesia Intra-op lactated ringers infusion New Bag 06/08/2016 11:00 AM MORTGAGE LOAN ASSISTANT at 25 mL/hr, Intravenous, CONTINUOUS, IF patient NOT on dialysis., Pre-procedure, Starting on Elda 06/08/16 at 0915, Until Elda 06/08/16 at 1115 New Bag 06/08/2016 10:08 AM MORTGAGE LOAN ASSISTANT lidocaine 1 % 1 mL Given 06/08/2016 10:13 AM MORTGAGE LOAN ASSISTANT 30 mg 1 mL, Other, EVERY 1 HOUR PRN, mild pain with VAD insertion or accessing implanted port, Starting on Elda 06/08/16 at 0901, Do NOT give if patient has a history of allergy to any local anesthetic or any jabier product. MAX dose 1 mL subcutaneous OR intradermal in divided doses., Pre-procedure methylPREDNISolone acetate (DEPO-MEDROL) Given 06/08/2016 9:53 A M MORTGAGE LOAN ASSISTANT 80 mg injection PRN, Starting on Elda 06/08/16 at 0953, Anesthesia Intra-op midazolam (VERSED) injection Given 06/08/2016 10:08 AM MORTGAGE LOAN ASSISTANT 2 mg PRN, anxiety, Starting on Elda 06/08/16 at 0953, Anesthesia Intra-op Given 06/08/2016 9:53 AM MORTGAGE LOAN ASSISTANT 2 mg ondansetron (ZOFRAN) injection Given 06/08/2016 10:13 AM MORTGAGE LOAN ASSISTANT 4 mg PRN, nausea, vomiting, Administer over 2-5 Minutes, Starting on Elda 06/08/16 at 1013, Anesthesia Intra-op propofol (DIPRIVAN) injection 10 mg/mL v ial Given 06/08/2016 10:13 AM MORTGAGE LOAN ASSISTANT 200 mg PRN, Starting on Elda 06/08/16 at 1013, Anesthesia Intra-op rocuronium (ZEMURON) injection Given 06/08/2016 10:13 AM MORTGAGE LOAN ASSISTANT 20 mg PRN, Starting on Elda 06/08/16 at 1013, Anesthesia Intra-op documented in this encounter Additional Health Concerns Assessment Noted Time PHQ-9 Depression Total Score: 11 05/02/2016 7:09 AM CS T documented as of this encounter Care Teams Film Casting Operator Relationship Specialty Start Date End Date Vanda Guerrero MD PCP - General Internal Medicine 04/08/15 01/08/[address] [facility] [place] [address] documented as of this encounter
--- OUTSIDE RECORDS SUMMARY | 2022-05-09 13:29 | XMS_ITS | Encounter Summary ---
:1965 Author Organization [place] Address [address] [place] [address]. [place] [address] Care Team Providers Name Role Phone Vanda Guerrero MD Primary Care Provider [phone] Vanda Guerrero MD Unavailable Reason for Visit LINUS Physical Therapy (Routine) - Closed Specialty Diagnoses / Procedures Referred By Contact Refer red To Contact Physical Therapy Diagnoses new pt needs paperwork post peroneal tendon repair surgery left foot. / Agatha Null DPM, Pod @ [facility] Pod[facility] Agatha Null DPM, Candy Disla, PT Procedures EXTREMITY INITIAL Podiatry/Foot and [facility] Ankle Surgery CENTER [address] [place] [facility] [address] [place] [address] [place] [address] Referral ID Status Reason Start Date Expiration Date Visits V isits Requested Authorized LINUS/BC/LFOOT Closed 07/03/2016 06/10/2017 20 18 Encounter Details Date Type Department Care Team Description 08/11/2016 [facility], left; Rehabilitation PT Aftercare following surgery of the [facility] Services [facility] [address] [facility] [address] [place] [address] [place], [place] [phone] [address] Social History Tobacco Use Types Packs/Day Years [...] How often do you attend druze or pentecostalism Patient refused 08/08/2019 services? 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 Self Management Plans: Patient has been [...] and time spent performing 1:1 timed codes. NE STEWARD documented in this encounter Plan of Treatment Not on filedocumented as of this encounter Procedures Procedure Name Priority Date/Time Associated Diagnosis Comme nts [facility] 08/11/2016 10:38 AM Ankle pain , left RE-EDUCATION MARINE STEWARD Aftercare following surgery of the musculoskeletal system [facility] Routine 08/11/2016 10:38 AM Ankle pain, left EXERCISES MARINE STEWARD Aftercare following surgery of the musculoskeletal system documented in this encounter Visit Diagnoses Diagnosis Ankle pain, left Pain in joint, ankle and foot Aftercare following surgery of the [facility] Aftercare following surgery of the [facility] system, N[facility] documented in this encounter Additional Health Concerns Assessment Noted Time PHQ-9 Depression Total Score: 11 05/02/2016 7:09 AM CS T documented as of this encounter Care Teams Bone Char Operator Relationship Specialty Start Date End Date Vanda Guerrero MD PCP - General Internal Medicine 04/08/15 01/08/[address] [place] [address] [place] [address] Vanda Guerrero MD PCP - Assigned PCP 07/24/16 06/15/[address] [place] [address] [place] [id number] documented as of this encounter
--- OUTSIDE RECORDS SUMMARY | 2022-05-09 13:29 | XMS_ITS | Encounter Summary ---
:1965 Author Organization [place] Address [address] [place] [address] Care Team Providers Name Role Phone Vanda Guerrero MD Primary Care Provider [phone] Reason for Visit Reason Comments Surgical Followup Left foot peroneal tendon re pair/transfer DOS 06/08/16 Encounter Details Date Type Department Care Team Description 06/13/2016 Office Visit [facility] Agatha Null, Post-op erative state (Primary Dx); Clinic [place] DPM, Podiatry/Foot Burning with urination [address] [facility] [place] [address] [place] [address] [facility] [address] [place] [address] (Wo rk) Social History Tobacco [...] How often do you attend caodaism or judaism Patient refused 08/08/2019 services? Do [...] Comments Blood Pressure 134/82 06/13/2016 9:59 AM STAFF ANESTHESIOLOGIST Pulse - - Temperature - - Respiratory Rate - - Oxygen Saturation - - Inhaled Oxygen Concentration - - Weight 86.6 kg (191 lb) 06/13/2016 9:59 AM STAFF ANESTHESIOLOGIST Height 157.5 cm (5' 2) 06/13/2016 9:59 AM STAFF ANESTHESIOLOGIST Body Mass Index 34.93 06/13/2016 9:59 AM STAFF ANESTHESIOLOGIST documented in this encounter Patient Instructions Patient InstructionsLarry Michael - 06/13/2016 10:[address] [facility] Schedule Follow up in 1 week Sunday AM Sunday [facility] [address] [address] [facility] [address] [address] [place] [address] [facility] [address] [place] [address] Sunday PM & Sunday AM Sunday PM Surgery Scheduling Line: [phone] [facility] [place] [address] [place] [address] [facility] [address] [place] [address] Appointment [phone] General After Hours: Patient [phone] F ANESTHESIOLOGIST documented in this encounter Progress Notes Agatha Null, MARÍA, Podiatry/Foot and Ankle Surgery - 06/13/2016 10:03 AM STAFF ANESTHESIOLOGIST Podiatry / Foot and Ankle Surgery Progress [...] completed using cuff size: kait Michael MA F ANESTHESIOLOGIST documented in this encounter Plan of Treatment Not on filedocumented as of this encounter Procedures Procedure Name Priority Date/Time Associated Diagnosis Comme nts URINE CULTURE Routine 06/13/2016 10:21 AM Burning with Results for this STAFF ANESTHESIOLOGIST urination procedure are i n the results section . documented in this encounter Results (ABNORMAL) Urine Culture Aerobic Bacterial (06/13/2016 10:21 AM STAFF ANESTHESIOLOGIST) Component Value Ref Test Analysis Performed At [facility] Range Method Time Signature Specimen Midstream Urine Critical access hospital Culture Micro 10,000 to INFECTIOUS 50,000 DISEASE colonies/mL DIAGNOSTIC Escherichia LABORATORY coli (A) Micro Report FINAL INFECTIOUS Status 06/14/2016 DISEASE DIAGNOSTIC LABORATORY Organism: 10,000 to INFECTIOUS 50,000 DISEASE colonies/mL DIAGNOSTIC Escherichia LABORATORY coli Specimen Anatomical Collection Method Collection Time Receive d Time (Source) Location / / Volume Laterality Urine specimen 06/13/2016 10:21 7 (specimen) AM STAFF ANESTHESIOLOGIST 10:22 AM STAFF ANESTHESIOLOGIST Organism Antibiotic Method Susceptibility 10,000 to 50,000 [...] Code Phon e Number INFECTIOUS DISEASES [address] [place] [address] DIAGNOSTIC LABORATORY, [address] [address] [place] INFECTIOUS DISEASE [address] [place], [place] [address] DIAGNOSTIC LABORATORY documented in this encounter Visit Diagnoses Diagnosis Post-operative state - Primary Other postprocedural status Burning with urination Dysuria documented in this encounter Additional Health Concerns Assessment Noted Time PHQ-9 Depression Total Score: 11 05/02/2016 7:09 AM CS T documented as of this encounter Care Teams Sales Strategy Manager Relationship Specialty Start Date End Date Vanda Guerrero MD PCP - General Internal Medicine 04/08/15 01/08/19 [address] [facility] [place] [address] documented as of this encounter
--- OUTSIDE RECORDS SUMMARY | 2022-05-09 13:29 | XMS_ITS | Encounter Summary ---
:1965 Author Organization [place] Address [address] [place] [address]. [place] [address] Care Team Providers Name Role Phone Vanda Guerrero MD Primary Care Provider Vanda Guerrero MD Unavailable Reason for Visit Reason Comments Surgical Followup Left peroneal tendon repair and transfer DOS 06/08/16 Encounter Details Date Type Department Care Team Description 08/15/2016 Office Visit [facility] Agatha Null, Post-op erative state (Primary Dx); Clinic [place] DPM, Podiatry/Foot Type 2 diabetes mellitus wit hout complication, without long- term current use of insulin (H); [address] and Ankle Surgery Peroneal tendon tear, right, [place] [address] [place] [address] [place] [address] [place] [address] (Wo rk) Social History Tobacco Use Types [...] How often do you attend mandaen or yarsanism Patient refused 08/08/2019 services? Do [...] Comments Blood Pressure 114/74 08/15/2016 9:54 AM TAMALE MACHINE FEEDER Pulse - - Temperature - - Respiratory Rate - - Oxygen Saturation - - Inhaled Oxygen Concentration - - Weight 86.6 kg (191 lb) 08/15/2016 9:54 AM TAMALE MACHINE FEEDER Height 157.5 cm (5' 2) 08/15/2016 9:54 AM TAMALE MACHINE FEEDER Body Mass Index 34.93 08/15/2016 9:54 AM TAMALE MACHINE FEEDER documented in this encounter Patient Instructions Patient InstructionsLarry Michael - 08/15/2016 10:[address] [facility] Schedule Follow up in 2 months Sunday AM Sunday [facility] [address] [place] [address] [facility] [address] [place] [address] [facility] [address] [place] [address] Sunday PM & Sunday AM Sunday PM Surgery Scheduling Line: [phone] [facility] [place] [address] [place] [address] [facility] [address] [place] [address] Appointment [phone] General After Hours: Patient [phone] To Schedule surgery, Call: [phone] LE MACHINE FEEDER documented in this encounter Progress Notes Agatha Null, DPM, Podiatry/Foot and Ankle Surgery - 08/15/2016 10:00 AM TAMALE MACHINE FEEDER Podiatry / Foot and Ankle Surgery Progress [...] kg). Medication Reconciliation: complete Larry Michael MA LE MACHINE FEEDER documented in this encounter Plan of [...] documented as of this encounter Care Teams Natural Gas Basis Trader Relationship Specialty Start Date End Date Vanda Guerrero MD PCP - General Internal Medicine 04/08/15 01/08/19 [address] [facility] [place] [address] Vanda Guerrero MD PCP - Assigned PCP 07/24/16 06/15/18 [address] [facility] [place] [address] documented as of this encounter
--- OUTSIDE RECORDS SUMMARY | 2022-05-09 13:29 | XMS_ITS | Encounter Summary ---
:1965 Author Organization [place] Address [facility] [place] [address] Care Team Providers Name Role Phone Vanda Guerrero MD Primary Care Provider [phone] Reason for Referral LINUS Physical Therapy - Closed Specialty Diagnoses / Procedures Referred By Contact Refer red To Contact Diagnoses Post-operative state Weakness Agatha Null, [facility], [facility]/Foot [facility] Ankle MED Surgery [address] [place] [address] [address] [place] [address] [place] [address] Phone: [phone] Referral ID Status Reason Start Date Expiration Date Visits Requ ested Visits Authorized [id number] Closed 06/20/2016 06/20/2017 1 1 CLOSER Reason for Visit Reason Comments Surgical Followup Left peroneal tendon repair and transfer Encounter Details Date Type Department Care Team Description 06/20/2016 Office Visit [facility] Agatha De Los Santos, Post-op erative state (Primary Dx); [facility] [place] DPM, Podiatry/Foot Weakness [address] [facility] [place] [address] [place] [address] [address] [place] [address] (Wo rk) Social History Tobacco [...] How often do you attend adventist or scientology Patient refused 08/08/2019 services? Do [...] Comments Blood Pressure 116/82 06/20/2016 10:07 AM LOAN CLOSER Pulse - - Temperature - - Respiratory Rate - - Oxygen Saturation - - Inhaled Oxygen Concentration - - Weight 86.6 kg (191 lb) 06/20/2016 10:07 AM LOAN CLOSER Height 157.5 cm (5' 2) 06/20/2016 10:07 AM LOAN CLOSER Body Mass Index 34.93 06/20/2016 10:07 AM LOAN CLOSER documented in this encounter Patient Instructions Patient InstructionsLarry Michael - 06/20/2016 10:20 AM CST 1. Can get foot wet. 2. Can start minimal weight bearing in boot and crutches in 3 weeks in the house. 3. Start PT in 2 weeks. 4. Follow up in 1month Dr. [facility] Schedule Sunday AM Sunday [facility] [address] [place] [address] [facility] [address] [place] [address] [facility] [address] [place] [address] Sunday PM & Sunday AM Sunday PM Surgery Scheduling Line: [phone] [facility] [place] [address] [place] [address] [facility] [address] [place] [address] Appointment [phone] General After Hours: Patient [phone] Scar Care Protocol Scarring is an unfortunate [...] of the scar, as it will exchange architect the next year. Scar Care 1. Do [...] and Ankle Surgery - 06/20/2016 10:15 AM LOAN CLOSER Podiatry / Foot and Ankle Surgery Progress [...] using cuff size: regular Larry Michael MA CLOSER documented in this encounter Plan of Treatment [...] documented as of this encounter Care Teams Dog Control Officer Relationship Specialty Start Date End Date Vanda Guerrero MD PCP - General Internal Medicine 04/08/15 01/08/19 [address] [facility] [place] [address] documented as of this encounter
--- OUTSIDE RECORDS SUMMARY | 2022-05-09 13:29 | XMS_ITS | Encounter Summary ---
:1965 Author Organization [place] Address [address] [place] [address] Care Team Providers Name Role Phone Vanda Guerrero MD Primary Care Provider [phone] Vanda Guerrero MD Unavailable Reason for Visit Reason Onset Date Comments Refill Request 08/17/2016 DULOXETINE 30MG Encounter Details Date Type Department Care Team Description 08/17/[address] [facility] Vanda Guerrero R efill Request Clinic Pino SALDANA (DULOXETINE 30MG) [address] [facility] [address] [place] [address] [place] [address] [phone] Social History Tobacco Use Types Packs/Day Years [...] 08/18/2016 10:01 AM CST Prescription approved per [facility] Refill Protocol. Kirsten Casillas RN Triage Nurse R SERVICES COORDINATOR Telephone Encounter - Marisa Matthew - 08/17/2016 11:01 AM CST DULOXETINE 30MG Last Written Prescription Date: 11/09/2015 Last Fill Quantity: 180, # refills: 2 Last Office Visit with [facility], [facility] or [facility] prescribing provider: 06/01/2016 BP Readings from Last 3 Encounters: 08/15/16 114/74 07/18/16 118/78 07/13/16 112/68 Pulse: (for Fetzima) Creatinine Date Value Ref Range Status 06/08/2016 0.74 0.52 - 1.04 mg/dL Final ] Last PHQ-9 score on record= PHQ-9 SCORE 05/01/2016 Total Score - Total Score MyChart 11 (Moderate depression) Total Score - R SERVICES COORDINATOR documented in this encounter Plan of Treatment Not on filedocumented as of this encounter Visit Diagnoses Diagnosis Fibromyalgia Mylagia and myositis, unspecified documented in this encounter Additional Health Concerns Assessment Noted Time PHQ-9 Depression Total Score: 11 05/02/2016 7:09 AM CS T documented as of this encounter Care Teams Telephone Quotation Clerk Relationship Specialty Start Date End Date Vanda Guerrero MD PCP - General Internal Medicine 04/08/15 01/08/[address] [place] [address] [place] [address] Vanda Guerrero MD PCP - Assigned PCP 07/24/16 06/15/[address] [place] [address] [place] [address] documented as of this encounter
--- OUTSIDE RECORDS SUMMARY | 2022-05-09 13:29 | XMS_ITS | Encounter Summary ---
:1965 Author Organization [place] Address [address] [place] [address] Care Team Providers Name Role Phone Vanda Guerrero MD Primary Care Provider [phone] Vanda Guerrero MD Unavailable Reason for Referral Specialty Diagnoses / Procedures Referred By Contact Refer red To Contact Sandy Joe[address] [place] [address] Referral ID Status Reason Start Date Expiration Date Visits Requ ested Visits Authorized Reason for Visit Reason Comments Medication Therapy Management Encounter Details Date Type Department Care Team Description 10/11/2016 Office Visit [facility] Sandy Joe Fibrom yalgia (Primary Dx); Clinic P[place] Jerez RPH Non morbid obesity, unspecified obesity type; [address] [address] BENI ANDRE Type 2 diabetes mellitus without complic ation, without long-term current use of insulin (H); [address] [place] [address] Vitamin D deficiency; [address] Anxiety; [place] (Work) Moderate episod e of recurrent major depressive disorder (H); [address] Gastroesophageal reflux dise ase without esophagitis; [phone] Hyperlipidemia LDL goal <100; Migraine withou t [...] How often do you attend evangelical or lutheran Patient refused 08/08/2019 services? Do [...] this encounter Patient Instructions Patient InstructionsSandy Joe, [facility] - 10/11/2016 2:30 PM CDT Recommendations from today's MTM visit: MTM (medication therapy management) is a service provided by a clinical pharmacist designed to help you get the most of out of your medicines. Vitamin D deficiency: After 50,000 IU aim for 2,000 IU of vitamin D (look in your multivitamin) Diabetes: Stop metformin. Meet with nutritionist public health. Migraines: Change topiramate to 50mg twice daily. [...] may call the MTM scheduling line at [phone] or toll-free at . My Clinical Pharmacist's contact information: It was a pleasure seeing you today! Please feel free to contact me with any questions or concerns you have. Sandy Joe, Donald [facility] Medication Therapy Management Practitioner #[phone] You may receive a survey about the [...] Wants to decrease weight. Allergies/ADRs: Reviewed in [employer] Tobacco: No tobacco use Alcohol: Less than 1 beverage / month Caffeine: no caffeine Activity: She is not exercising due to foot surgery, torn tendons PMH: Reviewed in [facility] Medication Adherence: no issues reported and sets [...] Weight gain: Needs improvement. Discussed meeting with calibration laboratory technician and continuing topiramate for now. Give consideration [...] your multivitamin) Diabetes: Stop metformin. Meet with nutritionist public health, CDE referral placed. Migraines: Change topiramate to [...] Cost of services discussed before visit, [facility]. Note. All changes were made via collaborative practice agreement with Vanda Guerrero. A copy of the visit note was provided to the patient's primary care provider. The patient was given a summary of these recommendations as an after visit summary. Sandy Joe PharmD [facility] Medication Therapy Management Practitioner VM #[phone] documented in this encounter Plan of Treatment [...] as of this encounter Care Teams Staff Air Tactical Officer Relationship Specialty Start Date End Date Vanda Guerrero MD PCP - General Internal Medicine 04/08/15 01/08/19 [address] [facility] [place] [address] Vanda Guerrero MD PCP - Assigned PCP 07/24/16 06/15/18 [address] [facility] [place] [address] documented as of this encounter
--- OUTSIDE RECORDS SUMMARY | 2022-05-09 13:29 | XMS_ITS | Encounter Summary ---
:1965 Author Organization [place] Address [address] [place] [address] Care Team Providers Name Role Phone Vanda Guerrero MD Primary Care Provider [phone] Reason for Visit LINUS Physical Therapy (Routine) - Closed Specialty Diagnoses / Procedures Referred By Contact Refer red To Contact Physical Therapy Diagnoses new pt needs paperwork post peroneal tendon repair surgery left foot. / Agatha Null DPM, Pod @ Cr Podiatry Agatha Null DPM, Candy Disla, PT Procedures EXTREMITY INITIAL Podiatry/Foot and [facility] [address] [place] [address] [place] [address] [place] [address] Referral ID Status Reason Start Date Expiration Date Visits V isits Requested Authorized LINUS/BC/LFOOT Closed 07/03/2016 06/10/2017 20 18 Encounter Details Date Type Department Care Team Description 07/05/2016 Therapy Visit [facility] Candy Disla, Ankle p ain, left (Primary Dx); Rehabilitation PT Aftercare following [facility] [address] [facility] [address] [place] [address] [place], [place] [phone] [address] Social History Tobacco Use Types Packs/Day [...] How often do you attend episcopal or sabianist Patient refused 08/08/2019 services? Do [...] Name Priority Date/Time Associated Diagnosis Comme nts [facility] NEUROMUSCULAR Routine 07/05/2016 12:44 PM Ankle pain , left RE-EDUCATION FIELD HUMAN RESOURCES MANAGER Aftercare following surgery of the musculoskeletal system [facility] THERAPEUTIC Routine 07/05/2016 12:44 PM Ankle pain, left EXERCISES FIELD HUMAN RESOURCES MANAGER Aftercare following surgery of the musculoskeletal system documented in this encounter Visit Diagnoses Diagnosis Ankle pain, left - Primary Pain in joint, ankle and foot Aftercare following surgery of the [facility] Aftercare following surgery of the [facility], N[facility] documented in this encounter Additional Health Concerns Assessment Noted Time PHQ-9 Depression Total Score: 11 05/02/2016 7:09 AM CS T documented as of this encounter Care Teams Hog Dropper Relationship Specialty Start Date End Date Vanda Guerrero MD PCP - General Internal Medicine 04/08/15 01/08/19 [address] [facility] [place] [address] documented as of this encounter
--- OUTSIDE RECORDS SUMMARY | 2022-05-09 13:30 | XMS_ITS | Encounter Summary ---
:1965 Author Organization [place] Address [address] [place] [address]. [place] [address] Care Team Providers Name Role Phone Vanda Borja MD Primary Care Provider [phone] Reason for Visit Reason Comments Physical Encounter Details Date Type Department Care Team Description 05/03/2016 Office Visit [facility] Vanda Borja for routine adult health examination with abnormal findings (Primary Dx); Pino Toribio MD Postmenopausal bleeding; [address] [facility] Moderate episode of recurren t major depressive disorder (H); [place] [address] Type 2 diabetes mellitus without complic ation, without long-term current use of insulin (H); [address] [place] [address] Fibromyalgia; [phone] Hyperlipidemia LDL goal <100; (Work) Gastroesophageal reflux [...] How often do you attend worship or jewish Patient refused 08/08/2019 services? Do [...] Comments Blood Pressure 122/78 05/03/2016 11:19 AM FILM NUMBERER Pulse 72 05/03/2016 11:19 AM FILM NUMBERER Temperature 36.4 ??C (97.6 ??F) 05/03/2016 11:19 AM FILM NUMBERER Respiratory Rate - - Oxygen Saturation - - Inhaled Oxygen Concentration - - Weight 85.3 kg (188 lb) 05/03/2016 11:19 AM FILM NUMBERER Height 157.5 cm (5' 2) 05/03/2016 11:19 AM FILM NUMBERER Body Mass Index 34.39 05/03/2016 11:19 AM FILM NUMBERER documented in this encounter Patient Instructions Patient InstructionsJodeetoanRejiLori Thomas - 05/03/2016 10:43 AM FILM NUMBERER [facility] Radiology: [phone] - call to set up pelvic ultrasound, then make appointment with BODY MECHANIC APPRENTICE here after that - Dr Nelson or [...] doctor every 1 to 2 years. ??? NUMBERER documented in this encounter Progress Notes Vanda [...] recommended All Histories reviewed and updated in [facility]. ROS: 10 point ROS neg other than the symptoms noted above in the HPI. Problem list, Medication list, Allergies, and Medical/Social/Surgical histories reviewed in [facility] andupdated as appropriate. OBJECTIVE: BP [...] have US and then follow up with Parts Sales Advisor 3. Moderate episode of recurrent major depressive [...] in addition to RHM. Vanda Borja MD [facility] PINO NUMBERER documented in this encounter Nursing Notes Lori [...] kg). BP completed using cuff size: regular NUMBERER documented in this encounter Plan of Treatment Not on filedocumented as of this encounter Procedures Procedure Name Priority Date/Time Associated Diagnosis Comme nts HPV HIGH RISK TYPES Routine 05/03/2016 12:17 PM Cervical cance r Results for this DNA CERVICAL FILM NUMBERER screening procedure are i n the results section. PAP IMAGED THIN Routine 05/03/2016 12:00 AM Cervical cancer Re sults for this LAYER SCREEN FILM NUMBERER screening procedure are i n the results section. documented in this encounter Results US Pelvic Complete with Transvaginal (05/05/2016 2:41 PM FILM NUMBERER) Anatomical Region Laterality Modality Abdomen/Pelvis Ultrasound Specimen (Source) Anatomical Location Collection Method / Collectio n Time Received Time / Laterality Volume Impressions 05/05/2016 3:32 PM FILM NUMBERER IMPRESSION: 3.2 cm intramural fibroid. No endometrial thickening. Minimal free pelvic fluid is noted. Ovar ies are unremarkable and appear atrophic. BRIDGETTE LOZA MD Narrative 05/05/2016 3:32 PM FILM NUMBERER US PELVIC COMPLETE WITH TRANSVAGINAL 05/05/2016 2:41 [...] Risk Types DNA Cervical (05/03/2016 12:17 PM FILM NUMBERER) Component Value Ref Test Analysis Performed At [facility] Range Method Time Signature HPV 16 DNA Negative NEG [facility] HPV 18 DNA Negative NEG [facility] Other HR HPV Negative NEG [facility] Final This patient's sample is negative for HPV DNA. [place] Diagnosis (Note) OF [place] METHODOLOGY: ??The Alaina kandy 4800 system uses [...] and its performance characteristics determined by the [facility], [place] [facility]. It has not been cleared or approved by the FDA. The laboratory is regulated under CLIA as qualified to perform high-complexity testing. This test is used for clinical purp oses. It should not be regarded as investigational or for research. Specimen Cervical Cells SIMPSON Description C16 11824 OF [facility] Specimen Anatomical Collection Method Collection Time Receive d Time (Source) Location / / Volume Laterality Cervical Cells 05/03/2016 12:17 6 PM FILM NUMBERER 12:20 PM FILM NUMBERER Vanda Borja MD LAB - BLOOD ORDERABLES Performing Organization Address City/State/ZIP Code Phon e Number [facility] [address] Pap imaged thin layer screen with HPV - recommended age 30 - 65 years (select HPV order below) (05/03/2016 12:00 AM FILM NUMBERER) Component Value Ref Test Analysis Performed At [facility] Range Method Time Signature PAP NIL COPATH Copath Report COPATH Patient Name: MEGAN CHOI MR#: [id number] Specimen #: [id number] Collected: 05/03/2016 Received: 05/05/2016 Reported: 05/09/2016 08:26 [...] TARIQ Wick (ASCP) Processed and screened at [facility] CLINICAL HISTORY: LMP: 10/30/11 Post Menopausal, Previous normal pap Date of Last Pap: 10/06/14, Papanicolaou Test Limitations: ??Cervical cytology is a scre ening test with limited sensitivity; regular screening is critical for cancer prevention; Pap tests are primarily effective for the diagnosis/prevention of squamous cell carcinoma, not adenoca rcinomas or other cancers. TESTING LAB LOCATION: [address] ??[address] COLLECTION SITE: Client: ??[facility] Location: [facility] (R) Specimen (Source) Anatomical Collection Method Collection Time Re ceived Time Location / / Volume Laterality Cytologic 05/03/2016 05/05/2016 10:2 2 material AM FILM NUMBERER (specimen) Vanda Borja MD LAB - OPTIME [...] documented as of this encounter Care Teams Athletic Equipment Custodian Relationship Specialty Start Date End Date Vanda oBrja MD PCP - General Internal Medicine 04/08/15 01/08/19 [address] [facility] [address] [place], [place] [address] documented as of this encounter
--- OUTSIDE RECORDS SUMMARY | 2022-05-09 13:30 | XMS_ITS | Encounter Summary ---
:1965 Author Organization [place] Address [address] [place] [address]. [place] [address] Care Team Providers Name Role Phone Vanda Guerrero MD Primary Care Provider [phone] Reason for Visit Reason Comments Foot Problems recheck afte MRI Encounter Details Date Type Department Care Team Description 05/16/2016 Office Visit [facility] Agatha Null, Foot pa in, bilateral (Primary Dx); Clinic [place] DPM, Podiatry/Foot Peroneal tendon tear, left, initial encounter; [address] [facility] and Ankle Surgery Peroneal tendon tear, right, initial enc ounter; [place] [address] Seda capellan vus, congenital; [address] [address] Fibromyalgia; [phone] [place], [place] Type 2 diabet es mellitus without [...] How often do you attend caodaism or baptist Patient refused 08/08/2019 services? Do [...] Comments Blood Pressure 124/80 05/16/2016 9:43 AM LEGAL ARBITRATOR Pulse - - Temperature - - Respiratory Rate - - Oxygen Saturation - - Inhaled Oxygen Concentration - - Weight 86.7 kg (191 lb 3.2 oz) 05/16/2016 9:43 AM LEGAL ARBITRATOR Height 157.5 cm (5' 2) 05/16/2016 9:43 AM LEGAL ARBITRATOR Body Mass Index 34.97 05/16/2016 9:43 AM LEGAL ARBITRATOR documented in this encounter Patient Instructions Patient InstructionsAgatha Null DPM, Podiatry/Foot and Ankle Surgery - 05/16/2016 10:[address] Null can be found at these clinics: Sunday AM [facility] [address] [place] [address] Sunday PM Surgery Sunday All Day [facility] [address] [place] [address] [facility] [address] [place] [facility] [place] [place] [id number] All Day surgery Sunday [facility] [place] [address], [address] [place], [place] [address] Sunday PM [facility] [address], [address] [place] [address] TO SCHEDULE SURGERY, call Yecenia at [phone]. To Schedule appointments call: [phone] General (after hours): Patient [phone] POTENTIAL COMPLICATIONS OF FOOT AND ANKLE SURGERY [...] and Ankle Surgery - 05/16/2016 1:39 PM LEGAL ARBITRATOR Podiatry / Foot and Ankle Surgery Progress [...] using cuff size: regular Larry Michael MA L ARBITRATOR documented in this encounter Plan of Treatment [...] documented as of this encounter Care Teams Commercial Property Administrator Relationship Specialty Start Date End Date Vanda Guerrero MD PCP - General Internal Medicine 04/08/15 01/08/[address] [facility] [address] [place], [place] [address] documented as of this encounter
--- OUTSIDE RECORDS SUMMARY | 2022-05-09 13:30 | XMS_ITS | Encounter Summary ---
:1965 Author Organization [place] Address [address] [place] [address]. [place] [address] Care Team Providers Name Role Phone Vanda Guerrero MD Primary Care Provider [phone] Reason for Visit Reason Onset Date Comments Medication Question 05/08/2016 interactions with me ds Encounter Details Date Type Department Care Team Description 05/08/2016 Telephone [facility] Vanda Lal Medication Question [address] [facility] MD Catarino (interactions with [place] [address] [address] [facility]) [phone] [facility] [place] [address] (Wo rk) Social History [...] How often do you attend denominational or evangelical Patient refused 08/08/2019 services? Do [...] PM CST Gave verbal ok to pharmacist. OPERATIONS MANAGER Telephone Encounter - Vanda Guerrero MD - 05/08/2016 3:34 PM SITE OPERATIONS MANAGER Patient has been on this combination retirement, is tolerating well, and is being followed closely. OK to fill. Please call pharmacy. OPERATIONS MANAGER Telephone Encounter - Graciela Barone RN - 05/08/2016 3:07 PM CST Cara pharmacist from [facility] calling regarding medication interactions with Citalopram. Omeprazole and Tizanidine in conjunction with Omeprazole may increased the QT interval. Cymbalta also interacts with Citalopram-increased serotonin. Please call pharmacist at [phone], if ok to continue these medications. Iain Barone RN OPERATIONS MANAGER documented in this encounter Plan of Treatment Not on filedocumented as of this encounter Visit Diagnoses Not on filedocumented in this encounter Additional Health Concerns Assessment Noted Time PHQ-9 Depression Total Score: 05/02/2016 7:09 AM CS T documented as of this encounter Care Teams Web Design Specialist Relationship Specialty Start Date End Date Vanda Guerrero MD PCP - General Internal Medicine 04/08/15 01/08/19 [address] [facility] [place] [address] documented as of this encounter
--- OUTSIDE RECORDS SUMMARY | 2022-05-09 13:30 | XMS_ITS | Encounter Summary ---
:1965 Author Organization [place] Address [address] [place] [address] Care Team Providers Name Role Phone Vanda Guerrero MD Primary Care Provider [phone] Reason for Visit (Routine) - Closed Specialty Diagnoses / Procedures Referred By Contact Refer red To Contact Radiology / Radiology. Diagnoses Epic Order, sb pt. Voicemail Reminder placed 05/03/16 [facility] [place] [address] [place] [address] [place] [address] Phone: Fax: Referral ID Status Reason Start Date Expiration Date Visits Requ ested Visits Authorized [id number] Closed 05/05/2016 05/05/2017 1 1 Encounter Details Date Type Department Care Team Description 05/05/2016 Hospital Encounter [facility] [place] Agatha Null B ilateral ankle [facility] DPM, joint pain [address] [place] [address] [place] [address] [place] [address] [place] [address] [place] [address] Social History Tobacco Use Types [...] How often do you attend worship or buddhist Patient refused 08/08/2019 services? Do [...] or female climacteric states fluticasone (FLONASE) 50 [place] 1-2 sprays 3 Bottle 3 05/0306/12/2017 MCG/ACT [...] PM Bilateral ankle Results for this CONTRAST CONSOLE OPERATOR joint pain procedure are i n the results section. documented in this encounter Results MR Ankle Right w/o Contrast (05/05/2016 1:06 PM CONSOLE OPERATOR) Anatomical Region Laterality Modality Right Ankle, SUBRAD MR MSK, UMP MR MSK M agnetic Resonance Specimen (Source) Anatomical Location Collection Method / Collectio n Time Received Time / Laterality Volume Impressions 05/05/2016 4:51 PM CONSOLE OPERATOR IMPRESSION: ?? 1. Type II accessory [...] ROHAN PINK MD Narrative 05/05/2016 4:51 PM CONSOLE OPERATOR MR ANKLE RIGHT WITHOUT CONTRAST 05/05/2016 [...] documented as of this encounter Care Teams Him Specialists Relationship Specialty Start Date End Date Vanda Guerrero MD PCP - General Internal Medicine 04/08/15 01/08/[address] [facility] [address] [place], DAV[place] [address] documented as of this encounter
--- OUTSIDE RECORDS SUMMARY | 2022-05-09 13:30 | XMS_ITS | Encounter Summary ---
:1965 Author Organization [place] Address [address] [place] [address] Care Team Providers Name Role Phone Vanda Guerrero MD Primary Care Provider [phone] Reason for Visit Reason Onset Date Comments Schedule Surgery 05/17/2016 Encounter Details Date Type Department Care Team Description 05/17/2016 Telephone [facility] Agatha Null DPM, Schedule Surgery [facility] and [address] [place] [address] Ankle Surgery [place], [place] [id number] [place] [address] DR [place] [address] [facility] [phone] [place], [place] [address] (Wo rk) Social History [...] 06/08/16 @ 10:[address] Null at [facility]. Details confirmed with patient. Thank you. ? DIAGNOSIS: left peroneal tendon tear PROCEDURES: ??Left peroneal tendon repair/transfer Site: ??Left Length of case: ??60 min [place]: ?? No ANESTHESIA: General Popliteal Block: ??Yes Tourniquet: t high ?? PATIENT POSITION: ??Lateral left up Antibiotics: ??Give before surgery Same day EQUIPMENT: ??Mini c-arm, podiatry set, tenotomy scissors, 2-prolene,and 3-0 fiberwire STRIAL RENDERER documented in this encounter Plan of Treatment Not on filedocumented as of this encounter Visit Diagnoses Not on filedocumented in this encounter Additional Health Concerns Assessment Noted Time PHQ-9 Depression Total Score: 11 05/02/2016 7:09 AM CS T documented as of this encounter Care Teams Booking Police Officer Relationship Specialty Start Date End Date Vanda Guerrero MD PCP - General Internal Medicine 04/08/15 01/08/19 [address] [facility] [place] [address] documented as of this encounter
--- OUTSIDE RECORDS SUMMARY | 2022-05-09 13:30 | XMS_ITS | Encounter Summary ---
:1965 Author Organization [place] Address [address] [place] [address]. [place] [address] Care Team Providers Name Role Phone Vanda Guerrero MD Primary Care Provider [phone] Reason for Visit Reason Comments Pre-Op Exam Encounter Details Date Type Department Care Team Description 06/01/2016 Office Visit [facility] Noreen Corbett Preop gen eral physical exam (Primary Dx); Clinic Pino Mcneil MD Type 2 diabetes mellitus without complic ation, without long-term current use of insulin (H); [address] [facility] Injur y of peroneal tendon of left foot, subsequent encounter; [facility] [address] Heart murmur [address] [place] [address] [place] [phone] Social History Tobacco Use Types Packs/Day Years [...] How often do you attend alevism or zoroastrian Patient refused 08/08/2019 services? Do [...] Comments Blood Pressure 104/68 06/01/2016 10:14 AM COCOA POWDER MIXER OPERATOR Pulse 72 06/01/2016 10:14 AM COCOA POWDER MIXER OPERATOR Temperature - - Respiratory Rate - - Oxygen Saturation - - Inhaled Oxygen Concentration - - Weight 86.6 kg (191 lb) 06/01/2016 10:14 AM COCOA POWDER MIXER OPERATOR Height - - Body Mass Index 34.93 05/16/2016 9:43 AM COCOA POWDER MIXER OPERATOR documented in this encounter Patient Instructions [...] and have clean sheets on your bed. A POWDER MIXER OPERATOR documented in this encounter Progress Notes Noreen Corbett MD - 06/01/2016 10:17 AM CST [address] [facility] [address] Dept: [phone] PRE-OP EVALUATION: Today's date: 06/01/2016 Megan Choi (: 1965) presents for pre-operative evaluation assessment as requested by Dr. Null. She requires evaluation and anesthesia risk assessment prior to undergoing surgery/procedure for treatment of left ankle . Proposed procedure: repair of tendon in left ankle Date of Surgery/ Procedure: 06/08/16 Time of Surgery/ Procedure: 10:10am Hospital/Surgical Facility: [facility] Primary Physician: Vanda Guerrero Type of Anesthesia [...] ??? Obesity 04/13/2008 ??? Family history of NH (myocardial infarction) 04/13/2008 At early age, father NH at age 40 Past Medical History Diagnosis [...] ??? fluticasone (FLONASE) 50 MCG/ACT nasal spray [place] 1-2 sprays into both nostrils daily 3 [...] cardiovascular risks for perioperative complications such as (NH, PE, VFib and 3?? AV Block): No [...] provided to requesting physician. [place] Preop Guidelines A POWDER MIXER OPERATOR documented in this encounter Nursing Notes Kallie [...] completed using cuff size: kait Blanco ma A POWDER MIXER OPERATOR documented in this encounter Plan of Treatment Not on filedocumented as of this encounter Procedures Procedure Name Priority Date/Time Associated Diagnosis Comme nts EKG 12-LEAD Routine 06/01/2016 10:37 AM Preop general Results for this COMPLETE W/READ - COCOA POWDER MIXER OPERATOR physical exam procedure are in CLINICS the results section. documented in this encounter Results EKG 12-lead complete w/read - Clinics (06/01/2016 10:37 AM COCOA POWDER MIXER OPERATOR) Specimen (Source) Anatomical Collection Method Collection Time Re ceived Time Location / / Volume Laterality 06/01/2016 10:37 AM COCOA POWDER MIXER OPERATOR Narrative This result has an attachment that [...] documented as of this encounter Care Teams Flower Grower Relationship Specialty Start Date End Date Vanda Guerrero MD PCP - General Internal Medicine 04/08/15 01/08/19 [address] [facility] [address] documented as of this encounter
--- OUTSIDE RECORDS SUMMARY | 2022-05-09 13:30 | XMS_ITS | Encounter Summary ---
:1965 Author Organization [place] Address [address] [place] [address] Care Team Providers Name Role Phone Vanda Guerrero MD Primary Care Provider [phone] Encounter Details Date Type Department Care Team Description 04/04/2016 Radiant Appointment [facility] Agatha Null, [place] [address] [facility] Podiatry/Foot and [place], [place] Ankle Surgery [address] [address] [phone] [address] [place] [address] Social History Tobacco Use Types [...] How often do you attend mandaeism or denominational Patient refused 08/08/2019 services? Do [...] as of this encounter Care Teams Superintendent Colliery Relationship Specialty Start Date End Date Vanda Guerrero MD PCP - General Internal Medicine 04/08/15 01/08/19 [address] [facility] [place] [address] documented as of this encounter
--- OUTSIDE RECORDS SUMMARY | 2022-05-09 13:30 | XMS_ITS | Encounter Summary ---
:1965 Author Organization [place] Address [address] [place] [address]. [place] [address] Care Team Providers Name Role Phone Vanda Guerrero MD Primary Care Provider [phone] Reason for Visit Reason Comments Musculoskeletal Problem both, left foot worse. Encounter Details Date Type Department Care Team Description 04/04/2016 Office Visit [facility] Agatha Null, Pain in both feet (Primary Dx); Clinic Marcellus DPM, Podiatry/Foot Peroneal tendinitis of left lower extremity; [address] [facility] and Ankle Surgery Peroneal tendinitis of right lower extre mity; [place] [address] Seda capellan vus, congenital; [address] [place] [address] Venous insufficiency of both lower extre mities; [phone] [place], [place] Fibromyalgia; [address] Type 2 diabetes mellitus without complic ation, without long-term current use of insulin (H); [phone] Non morbid obes ity, unspecified obesity type [...] How often do you attend religion or adventist Patient refused 08/08/2019 services? Do you belong to any clubs or organizations such as No 08/08/2019 religion groups, [employer], [employer] or athletic groups, or school groups? [...] in this encounter Patient Instructions Patient InstructionsDeacon Juancalroslonimichael WYATT - 04/04/2016 10:24 AM CDT Please follow up in [address] Null can be found at these clinics: Sunday AM [facility] [address] [place] [address] Sunday PM Surgery Sunday All Day [facility] [address] [place] [phone] Sunday [facility] [address] [address] [place], [place] [phone] All Day surgery Sunday AM [facility] [place] [address], [address] [place], [place] [address] Sunday PM [facility] [address] [facility], [address] [place] [address] TO SCHEDULE SURGERY, call Yecenia at [phone]. To Schedule appointments call: [phone] General (after hours): Patient [phone] DIABETES AND YOUR FEET What effect does [...] 2000 IU daily), Alpha-Lipoic Acid (600-1800mg daily), Pgyjlf-H-Bupoouwrt (500-1000mg TID, L-methyl folate (1500mcgdaily) Metformin can [...] of you. Do 2 sets of 10. physician in private practice the same position as above. While keeping [...] ??? 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 [...] Relation Age of Onset ??? Cardiovascular Mother [place] age 72 ??? Cardiovascular Father [place] early 40s, subsequent bipass ??? DIABETES Mother [...] obesity type PLAN: Reviewed patient's chart in [facility]. Reviewed proper diabetic foot care. Reviewed [...] this encounter Care Teams Oil Well Services Field Supervisor Relationship Specialty Start Date End Date Vanda Guerrero MD PCP - General Internal Medicine 04/08/15 01/08/19 [address] [facility] [place] [address] documented as of this encounter
--- OUTSIDE RECORDS SUMMARY | 2022-05-09 13:30 | XMS_ITS | Encounter Summary ---
:1965 Author Organization [place] Address [address] [place] [address] Care Team Providers Name Role Phone Vanda Guerrero MD Primary Care Provider [phone] Reason for Visit Reason Onset Date Comments Prior Authorization 05/25/2016 Encounter Details Date Type Department Care Team Description 05/25/2016 Telephone [facility] Agatha Null, DPM, Pr ior Authorization Clinic [place] [facility]/Foot and [address] [place] [address] Ankle [address] [place] [address] [facility] [phone] [place], [place] [address] (Wo rk) Social History [...] How often do you attend lutheran or nondenominational Patient refused 08/08/2019 services? Do [...] 05/25/2016 1:[address] @ [facility], , no precert is required for patient's 06/08/[address] Null. CPT code 60038. UET FLOOR LAYER documented in this encounter Plan of Treatment Not on filedocumented as of this encounter Visit Diagnoses Not on filedocumented in this encounter Additional Health Concerns Assessment Noted Time PHQ-9 Depression Total Score: 11 05/02/2016 7:09 AM CS T documented as of this encounter Care Teams Security Business Analyst Relationship Specialty Start Date End Date Vanda Guerrero MD PCP - General Internal Medicine 04/08/15 01/08/19 [address] [facility] [address] ANA[place], DAVID [address] documented as of this encounter
--- OUTSIDE RECORDS SUMMARY | 2022-05-09 13:30 | XMS_ITS | Encounter Summary ---
:1965 Author Organization [place] Address [address] [place] [address] Care Team Providers Name Role Phone Vanda Guerrero MD Primary Care Provider [phone] Reason for Visit Auth/Cert Specialty Diagnoses / Procedures Referred By Contact Refer red To Contact Surgery Diagnoses Peroneal Tendon tear Rh Periop Services Procedures REPAIR TENDON PERONEAL [address] [place], [place] [address] Phone: Fax: Referral ID Status Reason Start Date Expiration Date Visits Requ ested Visits Authorized [id number] 1 1 Encounter Details Date Type Department Care Team Description 06/08/2016 Hospital Encounter [facility] Agatha Nieves P ost-operative state (Primary Dx); [place] PreOP/PostOP DPM, Peroneal tendon tear, left, subsequent encounter; [address] Podiatry/Foot and Type 2 diabetes mellitus wit hout complication, without long- term current use of insulin (H) [place], [place] Ankle Surgery [address] [place] [phone] [address] [place] [address] Social History Tobacco Use Types [...] How often do you attend pentecostalism or jehovah's witness Patient refused 08/08/2019 services? [...] Comments Blood Pressure 122/69 06/08/2016 1:00 PM MICROSOFT SYSTEMS ENGINEER Pulse - - Temperature 36.8 ??C (98.2 ??F) 06/08/2016 1:00 PM MICROSOFT SYSTEMS ENGINEER Respiratory Rate 16 06/08/2016 12:59 PM MICROSOFT SYSTEMS ENGINEER Oxygen Saturation 95% 06/08/2016 1:20 PM MICROSOFT SYSTEMS ENGINEER Inhaled Oxygen Concentration - - Weight 87.1 kg (192 lb 1.6 oz) 06/08/2016 8:52 AM MICROSOFT SYSTEMS ENGINEER Height 157.5 cm (5' 2) 06/08/2016 8:52 AM MICROSOFT SYSTEMS ENGINEER Body Mass Index 35.14 06/08/2016 8:52 AM MICROSOFT SYSTEMS ENGINEER documented in this encounter Discharge Instructions Discharge [...] take any ibuprofen products until 3:15 pm. OSOFT SYSTEMS ENGINEER documented in this encounter Medications at Time [...] or female climacteric states fluticasone (FLONASE) 50 [place] 1-2 sprays 3 Bottle 3 05/0306/12/2017 MCG/ACT [...] days available in the hospital surgical encounter. OSOFT SYSTEMS ENGINEER Source Note - Noreen Corbett MD - 06/01/2016 10:17 AM MICROSOFT SYSTEMS ENGINEER [facility] [address] [facility] [address] [facility] [address] Dept: [phone] PRE-OP EVALUATION: Today's date: 06/01/2016 Megan Wong (: 1965) presents for pre-operative evaluation assessment as requested by Dr. Nieves. She requires evaluation and anesthesia risk assessment prior to undergoing surgery/procedure for treatment of left ankle . Proposed procedure: repair of tendon in left ankle Date of Surgery/ Procedure: 06/08/16 Time of Surgery/ Procedure: 10:10am Hospital/Surgical Facility: [facility] Primary Physician: Vanda Guerrero Type of Anesthesia [...] ??? fluticasone (FLONASE) 50 MCG/ACT nasal spray [place] 1-2 sprays into both nostrils daily 3 [...] evaluation report is provided to requesting physician. [place] Preop Guidelines OSOFT SYSTEMS ENGINEER documented in this encounter Nursing Notes Hortencia Sawyer, RN - 06/08/2016 12:26 PM CST Pharmacy [facility] called. Prescription question. Clarified with MD. Will receive the Enoxaparin 100mg/1mlwill give same dose just changing the dispensing container. V. O. Dr Karthik Nieves OSOFT SYSTEMS ENGINEER documented in this encounter Miscellaneous Notes Op [...] NIEVES DPM MT: [id number] Name: MEGAN WONG MRN: [id number] Account: [id number] : 1965 Procedure Date: 06/08/2016 Document: [id number] OSOFT SYSTEMS ENGINEER Brief Op Note - Agatha Nieves DPM, Podiatry/Foot and Ankle Surgery - 06/08/2016 11:19 AM CST [facility] Brief Operative Note Pre-operative diagnosis: Peroneal Tendon [...] AM Post-operative st ate Results for this MICROSOFT SYSTEMS ENGINEER procedure are i n the results section. SURGICAL PATHOLOGY Routine 06/08/2016 10:40 AM Re sults for this EXAM MICROSOFT SYSTEMS ENGINEER procedure are i n the results section. REPAIR, TENDON, 06/08/2016 9:59 AM Peroneal Tendon tea r PERONEAL MICROSOFT SYSTEMS ENGINEER Special Needs 5'2 / 191# stated POTASSIUM STAT 06/08/2016 9:20 AM MICROSOFT SYSTEMS ENGINEER Resul ts for this procedure are i n the results section . CREATININE STAT 06/08/2016 9:20 AM MICROSOFT SYSTEMS ENGINEER Resul ts for this procedure are i n the results section . GLUCOSE BY METER Routine 06/08/2016 8:58 AM MICROSOFT SYSTEMS ENGINEER R esults for this procedure are i n the results section . PATHOLOGY RESULT - HIM 06/08/2016 12:00 AM MICROSOFT SYSTEMS ENGINEER SCAN documented in this encounter Results (ABNORMAL) Glucose by meter (06/08/2016 11:52 AM MICROSOFT SYSTEMS ENGINEER) athologist Signature Glucose 159 (H) 70 - 99 POINT OF CARE mg/dL TEST, GLUCOSE Specimen Anatomical Collection Method Collection Time Receive d Time (Source) Location / / Volume Laterality 06/08/2016 11:52 06/08/2016 AM MICROSOFT SYSTEMS ENGINEER 11:55 AM MICROSOFT SYSTEMS ENGINEER Agatha Nieves DPM, Podiatry/Foot and Ankle Surgery LAB - [place] POCT Performing Organization Address City/State/ZIP Code Phon e Number FV POINT OF CARE TEST, GLUCOSE POINT OF CARE TEST, GLUCOSE Surgical pathology exam (06/08/2016 10:40 AM MICROSOFT SYSTEMS ENGINEER) Component Value Ref Test Analysis Performed At Patholo gist Range Method Time Signature Copath Report Patient Name: MEGAN WONG MR#: [id number] Specimen #: [id number] Collected: 06/08/2016 Received: 06/08/2016 Reported: 06/09/2016 11:56 [...] is no in flammation. CPT Codes: A: 64836-FK2, 52615-QCB TESTING LAB LOCATION: [address] ??[address] COLLECTION SITE: Client: [facility] Location: RHOR (R) Specimen (Source) Anatomical Collection Method Collection Time Re ceived Time Location / / Volume Laterality Tissue specimen STRUCTURE OF LEFT 06/08/2016 10:40 (specimen) FOOT / Unknown AM MICROSOFT SYSTEMS ENGINEER Comment: Left foot tendon for Gross exam ination Agatha SHEPHERDM, Podiatry/Foot and Ankle Surgery LAB - [place] Performing Organization Address City/State/ZIP Code Phon e Number COPATH Creatinine (06/08/2016 9:20 AM MICROSOFT SYSTEMS ENGINEER) athologist Signature Creatinine 0.74 0.52 - 1.04 [place] mg/dL [facility] GFR Estimate 82 >60 [place] mL/min/1.7m [address] Comment: Non GFR Calc GFR Estimate If Black >90 >60 mL/min/1.7m2 F [facility] GFR Calc HOSP ITAL Specimen Anatomical Collection Method Collection Time Receive d Time (Source) Location / / Volume Laterality Blood specimen 06/08/2016 9:20 AM 016 9:24 (specimen) MICROSOFT SYSTEMS ENGINEER AM MICROSOFT SYSTEMS ENGINEER Dusty Sanchez MD LAB - BLOOD ORDERABLES Performing Organization Address City/[facility]/ZIP [facility] Phon e Number [facility] [address] [place], [place] [address] [facility] [address] [place], [place] [address], [facility] [phone] Potassium (06/08/2016 9:20 AM MICROSOFT SYSTEMS ENGINEER) P athologist Signature Potassium 3.8 3.4 - 5.3 [facility] mmol/L HOSPITAL Specimen Anatomical Collection Method Collection Time Receive d Time (Source) Location / / Volume Laterality Blood specimen 06/08/2016 9:20 AM 016 9:24 (specimen) MICROSOFT SYSTEMS ENGINEER AM MICROSOFT SYSTEMS ENGINEER Dusty Sanchez MD LAB - BLOOD ORDERABLES Performing Organization Address City/[facility]/ZIP Code Phon e Number M [facility] [address] [place], [place] [address] [facility] [address] [place], [place] [address], [facility] [phone] (ABNORMAL) Glucose by meter (06/08/2016 8:58 AM MICROSOFT SYSTEMS ENGINEER) P athologist Signature Glucose 136 (H) 70 - 99 POINT OF CARE mg/dL TEST, GLUCOSE Specimen Anatomical Collection Method Collection Time Receive d Time (Source) Location / / Volume Laterality 06/08/2016 8:58 AM 6 9:00 MICROSOFT SYSTEMS ENGINEER AM MICROSOFT SYSTEMS ENGINEER Agatha Nieves DPM, Podiatry/Foot and Ankle Surgery LAB - [place] POCT Performing Organization Address City/State/ZIP Code Phon e Number FV POINT OF CARE TEST, GLUCOSE POINT OF CARE TEST, GLUCOSE PATHOLOGY RESULT - HIM SCAN (06/08/2016 12:00 AM MICROSOFT SYSTEMS ENGINEER) Specimen (Source) Anatomical Location Collection Method / [...] (ROXICODONE) IR tablet Given 06/08/2016 12:23 PM MICROSOFT SYSTEMS ENGINEER 5 mg 5-10 mg 5-10 mg, Oral, ONCE PRN, moderate to severe pain, Starting on [place] 06/08/16 at 1107, For 1 dose, One time prior to discharge., Post-procedure documented in this encounter Active and Recently Administered Medications Times are shown in MICROSOFT SYSTEMS ENGINEER. Scheduled Medication Order 06/06/2016 06/07/2016 06/08/2016 ceFAZolin sodium-dextrose (ANCEF) infusion 2 g (COMPLETED) 1008 (Given - Provider: Bryson Marie APRN CRNA) Routine, 2 g, Intravenous, PRE-OP/PRE-IN OCEDURE, Starting on [place] 06/08/16 at 0859, For 1 dose, Give first dose within 1 hour PRIOR to incision. If patient weight is greater than or equal to 120 kg incre ase dose to 3 g., Indications: Perioperative Pharmacop rophylaxis, Pre-procedure Continuous Medication Order 06/06/2016 06/07/2016 06/08/2016 lactated ringers infusion (CANCELED) 1008 (New Bag - Provider: Bryson Marie APRN CRNA)1100 (New Bag - Provider: Bryson Marie APRN CRNA) at 25 mL/hr, Intravenous, CONTINUOUS, IF patient NOT on dialysis., Pre- procedure, Starting on [place] 06/08/16 at 0915, Until [place] 06/08/16 at 1115 PRN Medication Order 06/06/2016 06/07/2016 06/08/2016 bupivacaine 0.5 % - EPINEPHrine 1:200,000 injection (CANCELED) 1101 (Given - Provider: Agatha Nieves DPM, Podiatry/Foot and Ankle Surgery) PRN, Starting on [place] 06/08/16 at 1101, Intra-procedure lidocaine 1 % 1 mL (CANCELED) 10 13 (Given - Provider: Dusty Sanchez MD) 1 mL, Other, EVERY 1 HOUR PRN, mild pain with VAD insertion or accessing implanted port, Starting on [place] 06/08/16 at 0901, Do NOT give if patient has a history of allergy to any local anesthetic or any jabier product. MAX dose 1 mL subcutane ous OR intradermal in divided doses., Pre-procedure oxyCODONE (ROXICODONE) IR tablet 5-10 mg (COMPLETED) 1223 (Given - Provider: Hortencia Sawyer RN) 5-10 mg, Oral, ONCE PRN, moderate to sev ere pain, Starting on [place] 06/08/16 at 1107, For 1 dose, One time prior to discharge., Post-procedure documented in this encounter Additional Health Concerns Assessment Noted Time PHQ-9 Depression Total Score: 11 05/02/2016 7:09 AM CS T documented as of this encounter Care Teams Console Operator Relationship Specialty Start Date End Date Vanda Guerrero MD PCP - General Internal Medicine 04/08/15 01/08/19 [address] [facility] [place] [address] documented as of this encounter
--- OUTSIDE RECORDS SUMMARY | 2022-05-09 13:30 | XMS_ITS | Encounter Summary ---
:1965 Author Organization [facility] Address [address] [place] [address] Care Team Providers Name Role Phone Vanda Guerrero MD Primary Care Provider [phone] Reason for Visit Auth/Cert Specialty Diagnoses / Procedures Referred By Contact Refer red To Contact Surgery Diagnoses Peroneal Tendon tear Rh Periop Services Procedures REPAIR TENDON PERONEAL [address] [place], [place] [address] Phone: Fax: Referral ID Status Reason Start Date Expiration Date Visits Requ ested Visits Authorized [id number] 1 1 Encounter Details Date Type Department Care Team Description 06/08/2016 Surgery [facility] Agatha Nieves, MARÍA, Le ft peroneal tendon [facility] Podiatry/Foot and repair and transfer [address] [facility] [place] [address] [place] [address] [place] [address] [place], [place] [address] (Wo rk) Surgery Details [...] transfer Surgeon Surgeon Role Service Panel Agatha Nieves DPM, Podiatry/Foot and Ankle Surgery Primary Podiatry [...] often do you attend oriental orthodox or yazdanism Patient refused 08/08/2019 services? Do [...] Comments Blood Pressure 156/103 06/08/2016 11:20 AM SHEET SORTER Pulse - - Temperature 36.6 ??C (97.9 ??F) 06/08/2016 11:15 AM SHEET SORTER Respiratory Rate 20 06/08/2016 11:20 AM SHEET SORTER Oxygen Saturation 100% 06/08/2016 11:20 AM SHEET SORTER Inhaled Oxygen Concentration - - Weight 87.1 kg (192 lb 1.6 oz) 06/08/2016 8:52 AM SHEET SORTER Height 157.5 cm (5' 2) 06/08/2016 8:52 AM SHEET SORTER Body Mass Index 35.14 06/08/2016 8:52 AM SHEET SORTER documented in this encounter Discharge Instructions Discharge [...] take any ibuprofen products until 3:15 pm. T SORTER documented in this encounter Medications at Time [...] or female climacteric states fluticasone (FLONASE) 50 [place] 1-2 sprays 3 Bottle 3 05/0306/12/2017 MCG/ACT [...] days available in the hospital surgical encounter. T SORTER Source Note - Noreen [facility]ett MD - 06/01/2016 10:17 AM SHEET SORTER [address] [facility] [address] Dept: [phone] PRE-OP EVALUATION: Today's date: 06/01/2016 Megan Wong (: 1965) presents for pre-operative evaluation assessment as requested by Dr. Nieves. She requires evaluation and anesthesia risk assessment prior to undergoing surgery/procedure for treatment of left ankle . Proposed procedure: repair of tendon in left ankle Date of Surgery/ Procedure: 06/08/16 Time of Surgery/ Procedure: 10:10am Hospital/Surgical Facility: [facility] Primary Physician: Vanda Guerrero Type of Anesthesia [...] ??? Obesity 04/13/2008 ??? Family history of DE (myocardial infarction) 04/13/2008 At early age, father DE at age 40 Past Medical History Diagnosis [...] ??? fluticasone (FLONASE) 50 MCG/ACT nasal spray [place] 1-2 sprays into both nostrils daily 3 [...] g 1 ??? JAY NOT PRESCRIBED, INTENTIONAL, AJY Inhibitor not prescribed due to Symptomatic hypotension [...] cardiovascular risks for perioperative complications such as (DE, PE, VFib and 3?? AV Block): No [...] evaluation report is provided to requesting physician. [facility] Preop Guidelines T SORTER documented in this encounter Nursing Notes Hortencia Sawyer, RERE - 06/08/2016 12:26 PM CST Pharmacy [facility] called. Prescription question. Clarified with MD. Will receive the Enoxaparin 100mg/1mlwill give same dose just changing the dispensing container. V. O. Dr Karthik Nieves T SORTER documented in this encounter Miscellaneous Notes Op [...] EM#[id number] Name: MEGAN WONG MRN: [id number] Account: [id number] : 1965 Procedure Date: 06/08/2016 Document: [id number] T SORTER Brief Op Note - Agatha Nieves DPM, Podiatry/Foot and Ankle Surgery - 06/08/2016 11:19 AM CST [facility] Brief Operative Note Pre-operative diagnosis: [...] AM Post-operative st ate Results for this SHEET SORTER procedure are i n the results section. SURGICAL PATHOLOGY Routine 06/08/2016 10:40 AM Re sults for this EXAM SHEET SORTER procedure are i n the results section. REPAIR, TENDON, 06/08/2016 9:59 AM Peroneal Tendon tea r PERONEAL SHEET SORTER Special Needs 5'2 / 191# stated POTASSIUM STAT 06/08/2016 9:20 AM SHEET SORTER Resul ts for this procedure are i n the results section . CREATININE STAT 06/08/2016 9:20 AM SHEET SORTER Resul ts for this procedure are i n the results section . GLUCOSE BY METER Routine 06/08/2016 8:58 AM SHEET SORTER R esults for this procedure are i n the results section . PATHOLOGY RESULT - HIM 06/08/2016 12:00 AM SHEET SORTER SCAN documented in this encounter Results (ABNORMAL) Glucose by meter (06/08/2016 11:52 AM SHEET SORTER) P athologist Signature Glucose 159 (H) 70 - 99 POINT OF CARE mg/dL TEST, GLUCOSE Specimen Anatomical Collection Method Collection Time Receive d Time (Source) Location / / Volume Laterality 06/08/2016 11:52 06/08/2016 AM SHEET SORTER 11:55 AM SHEET SORTER Agatha Nieves DPM, Podiatry/Foot and Ankle [facility] PO[facility] Performing Organization Address City/State/ZIP Code Phon e Number FV POINT OF CARE TEST, GLUCOSE POINT OF CARE TEST, GLUCOSE Surgical pathology exam (06/08/2016 10:40 AM SHEET SORTER) Component Value Ref Test Analysis Performed At [facility] Range Method Time Signature Copath Report Patient Name: MEGAN WONG MR#: [id number] Specimen #: [id number] Collected: 06/08/2016 Received: 06/08/2016 Reported: 06/09/2016 11:56 [...] entirely in 1 block. (Dictated by: Ben Ruby 08/09/2015 01:42 PM) INTRAOPERATIVE CONSULTATION: Gross consultation: Left foot tendon: Tissue present consistent with tendon. ??( Dr. CURRY) MICROSCOPIC: There is connective tendinous-type tissue is partially surfa sanjiv by synovium. ??There are degenerative changes. ??There is no in flammation. CPT Codes: A: 99801-TG5, 99478-PEQ TESTING LAB LOCATION: [address] ??[address] COLLECTION SITE: Client: [facility] Location: RHOR (R) Specimen (Source) Anatomical Collection Method Collection Time Re ceived Time Location / / Volume Laterality Tissue specimen STRUCTURE OF LEFT 06/08/2016 10:40 (specimen) FOOT / Unknown AM SHEET SORTER Comment: Left foot tendon for Gross exam ination Agatha Nieves DPM, Podiatry/Foot and Ankle Surgery LAB - [place] Performing Organization Address City/State/ZIP Code Phon e Number COPATH Creatinine (06/08/2016 9:20 AM SHEET SORTER) athologist Signature Creatinine 0.74 0.52 - 1.04 [place] mg/dL [facility] GFR Estimate 82 >60 [place] mL/min/1.7m [address] Comment: Non GFR Calc GFR Estimate If Black >90 >60 mL/min/1.7m2 F [facility] GFR Calc HOSP ITAL Specimen Anatomical Collection Method Collection Time Receive d Time (Source) Location / / Volume Laterality Blood specimen 06/08/2016 9:20 AM 016 9:24 (specimen) SHEET SORTER AM SHEET SORTER Dusty Sanchez MD LAB - BLOOD ORDERABLES Performing Organization Address City/[facility]/ZIP [facility] Phon e Number M [facility] [address] [address] [facility] [address] [address], [facility] [phone] Potassium (06/08/2016 9:20 AM SHEET SORTER) athologist [facility] Potassium 3.8 3.4 - 5.3 [facility] mmol/L HOSPITAL Specimen Anatomical Collection Method Collection Time Receive d Time (Source) Location / / Volume Laterality Blood specimen 06/08/2016 9:20 AM 016 9:24 (specimen) SHEET SORTER AM SHEET SORTER Dusty Sanchez MD LAB - BLOOD ORDERABLES Performing Organization Address [facility]/ZIP [facility] Phon e Number M [facility] [address] [place], [place] [address] [facility] [address] [address], [facility] [phone] (ABNORMAL) Glucose by meter (06/08/2016 8:58 AM SHEET SORTER) athologist Signature Glucose 136 (H) 70 - 99 POINT OF CARE mg/dL TEST, GLUCOSE Specimen Anatomical Collection Method Collection Time Receive d Time (Source) Location / / Volume Laterality 06/08/2016 8:58 AM 6 9:00 SHEET SORTER AM SHEET SORTER Agatha Nieves DPM, Podiatry/Foot and Ankle Surgery LAB - [facility] POCT Performing Organization Address City/State/ZIP Code Phon e Number FV POINT OF CARE TEST, GLUCOSE POINT OF CARE TEST, GLUCOSE PATHOLOGY RESULT - HIM SCAN (06/08/2016 12:00 AM SHEET SORTER) Specimen (Source) Anatomical Location Collection Method / [...] 11:01 10 mLs Operative EPINEPHrine 1:200,000 AM SHEET SORTER Sit e/Surgical Site injection PRN, Starting on Elda 06/08/16 at 1101, Intra-procedure oxyCODONE (ROXICODONE) IR tablet 5-10 mg Given 06/08/2016 12:23 PM SHEET SORTER 5 mg 5-10 mg, Oral, ONCE PRN, moderate to severe pain, Starting on Elda 06/08/16 at 1107, For 1 dose, One time prior to discharge., Post-procedure documented in this encounter Active and Recently Administered Medications Times are shown in SHEET SORTER. Scheduled Medication Order 06/06/2016 06/07/2016 06/08/2016 ceFAZolin sodium-dextrose (ANCEF) infusion 2 g (COMPLETED) 1008 (Given - Provider: Bryson Marie APRN CRNA) Routine, 2 g, Intravenous, PRE-OP/PRE-NV OCEDURE, Starting on Elda 06/08/16 at 0859, For 1 dose, Give first dose within 1 hour PRIOR to incision. If patient weight is greater than or equal to 120 kg incre ase dose to 3 g., Indications: Perioperative Pharmacop rophylaxis, Pre-procedure Continuous Medication Order 06/06/2016 06/07/2016 06/08/2016 lactated ringers infusion (CANCELED) 1008 (New Bag - Provider: Bryson Marie APRN NATURAL SCIENCES MANAGER)1100 (New Bag - Provider: Bryson Marie APRN [...] documented as of this encounter Care Teams Professor/Nurse Anesthetist Relationship Specialty Start Date End Date Vanda Guerrero MD PCP - General Internal Medicine 04/08/15 01/08/[address] [facility] [place] [phone] documented as of this encounter
--- OUTSIDE RECORDS SUMMARY | 2022-05-09 13:30 | XMS_ITS | Encounter Summary ---
:1965 Author Organization [facility] Address [address] [place] [address]. [place] [address] Care Team Providers Name Role Phone Vanda Guerrero MD Primary Care Provider [phone] Reason for Visit (Routine) - Closed Specialty Diagnoses / Procedures Referred By Contact Refer red To Contact Radiology / Diagnoses Epic order sb Rh Ultrasound cc Radiology. Procedures US PELVIC COMP W TRANSVAGINAL [address] [place] [address] Phone: Fax: Referral ID Status Reason Start Date Expiration Date Visits Requ ested Visits Authorized [id number] Closed 05/05/2016 05/05/2017 1 1 Encounter Details Date Type Department Care Team Description [facility] [address] [place] [address] [place] [address] [place] [address] [address] [place], [place] (Work) [address] Social History Tobacco Use [...] How often do you attend tenriism or mormon Patient refused 08/08/2019 services? Do you belong to any clubs or organizations such as No 08/08/2019 tenriism groups, [employer], [employer] or athletic groups, or school groups? How [...] or female climacteric states fluticasone (FLONASE) 50 [place] 1-2 sprays 3 Bottle 3 05/0306/12/2017 MCG/ACT [...] Results fo r this TRANSABDOMINAL AND PM DISPLAY COORDINATOR bleeding procedure are in TRANSVAGINAL the results section. documented in this encounter Results US Pelvic Complete with Transvaginal (05/05/2016 2:41 PM DISPLAY COORDINATOR) Anatomical Region Laterality Modality Abdomen/Pelvis Ultrasound Specimen (Source) Anatomical Location Collection Method / Collectio n Time Received Time / Laterality Volume Impressions 05/05/2016 3:32 PM DISPLAY COORDINATOR IMPRESSION: 3.2 cm intramural fibroid. No endometrial thickening. Minimal free pelvic fluid is noted. Ovar ies are unremarkable and appear atrophic. DWIGHT LOZA MD Narrative 05/05/2016 3:32 PM DISPLAY COORDINATOR US PELVIC COMPLETE WITH TRANSVAGINAL 05/05/2016 2:41 [...] free pelvic fluid is present. Procedure Note Diwght Loza MD - 05/05/2016Form atting of this [...] as of this encounter Care Teams Software Application Tester Relationship Specialty Start Date End Date Vanda Guerrero MD PCP - General Internal Medicine 04/08/15 01/08/[address] [facility] [address] [place], [place] [address] documented as of this encounter
--- OUTSIDE RECORDS SUMMARY | 2022-05-09 13:30 | XMS_ITS | Encounter Summary ---
:1965 Author Organization [facility] Address [address] [place] [address] Care Team Providers Name Role Phone Vanda Guerrero MD Primary Care Provider [phone] Reason for Visit Reason Onset Date Comments Vaginal Problem 04/18/2016 spotting Encounter Details Date Type Department Care Team Description 04/18/2016 Telephone [facility] Vanda Lal Vaginal Problem [address] [facility] MD [facility] (spotting) [place] [address] [address] [facility] [phone] [facility] DAV[place] [...] How often do you attend judaism or mormonism Patient refused 08/08/2019 services? Do [...] Vanda Guerrero MD - 04/19/2016 8:40 AM PHARMACIST INTERN Patient has appt with me later this month - will discuss in more detail at that time. MACIST INTERN Telephone Encounter - Kallie Mishra RN - [...] Guerrero, would like to wait versus seeing RADIATION TECHNICIAN. Patient will call with any new or worsening symptoms. FYI sent to Dr. Guerrero per patient request. MACIST INTERN documented in this encounter Plan of Treatment Not on filedocumented as of this encounter Visit Diagnoses Not on filedocumented in this encounter Additional Health Concerns Assessment Noted Time PHQ-9 Depression Total Score: 10 12/23/2015 7:15 AM CD T documented as of this encounter Care Teams Milk Handler Relationship Specialty Start Date End Date Vanda Guerrero MD PCP - General Internal Medicine 04/08/15 01/08/19 [address] [facility] [place] [address] documented as of this encounter
--- OUTSIDE RECORDS SUMMARY | 2022-05-09 13:30 | XMS_ITS | Encounter Summary ---
:1965 Author Organization [facility] Address [address] [place] [address]. [place] [address] Care Team Providers Name Role Phone Vanda Guerrero MD Primary Care Provider [phone] Reason for Visit (Routine) - Closed Specialty Diagnoses / Procedures Referred By Contact Refer red To Contact Radiology / Radiology. Diagnoses Epic Order, sb pt. Rh [place] [address] [place] [address] Phone: Fax: Referral ID Status Reason Start Date Expiration Date Visits Requ ested Visits Authorized [id number] Closed 05/05/2016 05/03/2017 1 1 Encounter Details Date Type Department Care Team Description 05/05/2016 Hospital Encounter [facility] Agatha Null B ilateral ankle [facility] DPM, joint pain [address] [facility] [address] [place] [address] [place] [address] [facility] [address] [place], [place] [id number] Social History Tobacco Use Types Packs/Day Years [...] How often do you attend scientology or scientologist Patient refused 08/08/2019 services? Do [...] or female climacteric states fluticasone (FLONASE) 50 [place] 1-2 sprays 3 Bottle 3 05/0306/12/2017 MCG/ACT [...] Bilateral ankle R esults for this CONTRAST DOG GROOMER joint pain procedure are i n the results section. documented in this encounter Results MR Ankle Left w/o Contrast (05/05/2016 1:32 PM DOG GROOMER) Anatomical Region Laterality Modality Left Ankle, SUBRAD MR MSK, UMP MR MSK Ma gnetic Resonance Specimen (Source) Anatomical Location Collection Method / Collectio n Time Received Time / Laterality Volume Impressions 05/05/2016 4:51 PM DOG GROOMER IMPRESSION: ?? 1. Type II accessory navicular [...] ROHAN PINK MD Narrative 05/05/2016 4:51 PM DOG GROOMER MR ANKLE LEFT WITHOUT CONTRAST 05/05/2016 1:32 [...] documented as of this encounter Care Teams Order To Delivery Supervisor Relationship Specialty Start Date End Date Vanda Guerrero MD PCP - General Internal Medicine 04/08/15 01/08/[address] [place] [address] documented as of this encounter
--- OUTSIDE RECORDS SUMMARY | 2022-05-09 13:30 | XMS_ITS | Encounter Summary ---
:1965 Author Organization [facility] Address [address] [place] [address] Care Team Providers Name Role Phone Vanda Guerrero MD Primary Care Provider [phone] Reason for Visit Reason Onset Date Comments Refill Request 06/05/2016 Zanaflex Encounter Details Date Type Department Care Team Description 06/05/2016 Refill [facility] Vanda Guerrero R efill Request Clinic Pino SALDANA (Zanaflex) [address] [facility] [address] [place] [address] [place] [address] [phone] Social History Tobacco Use Types Packs/Day Years [...] How often do you attend anabaptism or uatsdin Patient refused 08/08/2019 services? Do [...] Nicole Magana RN - 06/05/2016 1:16 PM ACTIVITIES SPECIALIST Zanaflex Last Written Prescription Date: 12/31/2015 Last Fill Quantity: 90 tablet, # refills: 5 Last Office Visit with [facility], [facility] or Health prescribing provider: 06/01/2016 with AF (pre-op) Future Office visit: Next 5 appointments (look out 90 days) Jun 13, 2016 10:00 AM Return Visit with Agatha Null DPM, Pod [facility] ([facility] [address] [place] [address] Routing refill request to provider for review/approval because: Drug not on the [facility], U[facility] or Health refill protocol or controlled substance Nicole Magana, RN, BSN, PHN VITIES SPECIALIST documented in this encounter Plan of Treatment Not on filedocumented as of this encounter Visit Diagnoses Diagnosis Cervicalgia - Primary History of fusion of cervical spine Arthrodesis status History of lumbar fusion documented in this encounter Additional Health Concerns Assessment Noted Time PHQ-9 Depression Total Score: 11 05/02/2016 7:09 AM CS T documented as of this encounter Care Teams Rn Clinician Relationship Specialty Start Date End Date Vanda Guerrero MD PCP - General Internal Medicine 04/08/15 01/08/19 [address] [facility] [place] [address] documented as of this encounter
--- OUTSIDE RECORDS SUMMARY | 2022-05-09 13:30 | XMS_ITS | Encounter Summary ---
:1965 Author Organization [facility] Address [address] [place] [address]. [place] [address] Care Team Providers Name Role Phone Vanda Guerrero MD Primary Care Provider [phone] Encounter Details Date Type Department Care Team Description 05/22/2016 Orders Only [facility] Agatha Null Peronea l tendon tear, left, subsequent encounter (Primary Dx); Clinic Min DPM, Podiatry/Foot Post-operative state [address] [facility] [place] [address] [address] [phone] [address] [place] [address] (Wo rk) Social History Tobacco Use Types [...] How often do you attend anabaptism or amish Patient refused 08/08/2019 services? Do [...] documented as of this encounter Care Teams Caseworker Relationship Specialty Start Date End Date Vanda Guerrero MD PCP - General Internal Medicine 04/08/15 01/08/[address] [place] [address] documented as of this encounter
--- OUTSIDE RECORDS SUMMARY | 2022-05-09 13:30 | XMS_ITS | Encounter Summary ---
:1965 Author Organization [facility] Address [address] [place] [address]. [place] [address] Care Team Providers Name Role Phone Vanda Guerrero MD Primary Care Provider [phone] Reason for Visit Reason Comments Consult follow-up regarding US done 05/05/16 - post menopausal bleeding x's 1 episode - 04/16-04/19 Encounter Details Date Type Department Care Team Description 05/11/2016 Office Visit [facility] Kodama, Christy Vagina l bleeding Pino Donnelly MD (Primary Dx) [address] [facility] [employer] [facility] [place] [address] [facility] [phone] [address] [address] [place] [address] (Wo rk) Social History [...] How often do you attend rastafarian or confucianism Patient refused 08/08/2019 services? Do [...] Comments Blood Pressure 110/68 05/11/2016 1:58 PM HEARING AID TECHNICIAN Pulse 72 05/11/2016 1:58 PM HEARING AID TECHNICIAN Temperature - - Respiratory Rate - - Oxygen Saturation - - Inhaled Oxygen Concentration - - Weight 85.3 kg (188 lb) 05/11/2016 1:58 PM HEARING AID TECHNICIAN Height - - Body Mass Index 34.39 05/03/2016 11:19 AM HEARING AID TECHNICIAN documented in this encounter Progress Notes Kallie [...] regular Nurse assisted visit. Kallie Blanco MA. ING AID TECHNICIAN Christy Iabrra MD - 05/11/2016 12:50 PM CST Subjective: Megan Choi, a 51 y/o female, presents for follow up of pelvic US. Patient reports light vaginal bleeding 04/16/16-04/19/16. [place] like a period, +PMS, breast tenderness,pelvic pressure. Reports pelvic pressure since February. Confirms minimal discharge, has now stopped. Denies bladder or bowel problems. Sexually active, endorses dyspareunia alleviated with estrace cream. Denies any other PRESS SETTER related problems. Patient notes persistent fatigue. Reports [...] ??? Cardiovascular Mother [place] age 72 ??? Cardiovascular Father [place] early 40s, subsequent bipass ??? DIABETES Mother [...] behalf by Gisele Newberry, a trained medical director. The creation of this document is based the provider's statements to the medical director. Gisele Newberry May 11, 2016 12:50 PM [...] in this document, created by the medical director for me, accurately reflects the services I personally performed and the decisions made by me. I have reviewed and approved this document for accuracy prior to leaving the patient care area. 05/11/2016 12:51 PM Christy Ibarra M.D. ING AID TECHNICIAN documented in this encounter Plan of Treatment Not on filedocumented as of this encounter Visit Diagnoses Diagnosis Vaginal bleeding - Primary Other specified noninflammatory disorder of vagina documented in this encounter Additional Health Concerns Assessment Noted Time PHQ-9 Depression Total Score: 11 05/02/2016 7:09 AM CS T documented as of this encounter Care Teams Transfer Car Operator Relationship Specialty Start Date End Date Vanda Guerrero MD PCP - General Internal Medicine 04/08/15 01/08/19 [address] [facility] [place] [address] documented as of this encounter
--- OUTSIDE RECORDS SUMMARY | 2022-05-09 13:31 | XMS_ITS | Encounter Summary ---
:1965 Author Organization [facility] Address [address] [place] [address]. [place] [address] Care Team Providers Name Role Phone Vanda Guerrero MD Primary Care Provider [phone] Reason for Visit Reason Onset Date Comments Refill Request 12/06/2015 METFORMIN 500MG Encounter Details Date Type Department Care Team Description 12/06/2015 Refill [facility] Vanda Lal, Refill Request 1440 Priscilla Bass MD (METFORMIN 500MG) [place] [phone] 2189 [facility] [phone] [facility] [place] [address] (Wo rk) [...] How often do you attend religious or yarsani Patient refused 08/08/2019 services? Do [...] 12/08/2015 4:31 PM CDT Prescription approved per [facility] Refill Protocol. Bambi Chaudhary RN Telephone Encounter - Marisa Matthew - 12/06/2015 8:14 AM CDT METFORMIN 500MG Last Written Prescription Date: 09/10/2015 Last Fill Quantity: 180, # refills: 0 Last Office Visit with G, P or [facility] prescribing provider: 11/01/2015 Next 5 appointments (look out 90 days) Dec 22, 2015 9:00 AM Office Visit with Vanda Guerrero MD [facility] ([facility]) 1440 [facility] [place] [address] MICROL 10 09/30/2015 [...] documented as of this encounter Care Teams Tower Excavator Operator Relationship Specialty Start Date End Date Vanda Guerrero MD PCP - General Internal Medicine 04/08/15 01/08/19 18[address] [facility] [place] [address] documented as of this encounter
--- OUTSIDE RECORDS SUMMARY | 2022-05-09 13:31 | XMS_ITS | Encounter Summary ---
:1965 Author Organization [facility] Address [address] [place] [address] Care Team Providers Name Role Phone Vanda Guerrero MD Primary Care Provider [phone] Reason for Visit Reason Onset Date Comments Patient Request 10/27/2015 Should patient get l abs re-checked? Encounter Details Date Type Department Care Team Description 10/27/2015 Telephone [facility] Vanda Lal Patient Request 1440 [facility] MD Catarino (Should patient get [place] [phone] 3305 [facility] labs re-checked?) [phone] [facility] [place] [address] (Wo [...] How often do you attend islam or voodoo Patient refused 08/08/2019 services? Do [...] documented as of this encounter Care Teams Ms Sql Developer Relationship Specialty Start Date End Date Vanda Guerrero MD PCP - General Internal Medicine 04/08/15 01/08/19 2265 [facility] [place] [address] documented as of this encounter
--- OUTSIDE RECORDS SUMMARY | 2022-05-09 13:31 | XMS_ITS | Encounter Summary ---
:1965 Author Organization [place] Address [address] [place] [address] Care Team Providers Name Role Phone Vanda Guerrero MD Primary Care Provider [phone] Reason for Visit Reason Onset Date Comments Refill Request 08/20/2015 tiZANidine (ZANAFLEX ) 4 MG tablet Encounter Details Date Type Department Care Team Description 08/20/2015 Refill [facility] Vanda Lal, Refill Request 1440 [place] Bass MD (tiZANidine (ZANAFLEX) [place] [phone] [place] [address] 4 MG tablet) [phone] [facility] [place] [id number] (Wo rk) Social History Tobacco Use Types [...] How often do you attend yazdanism or congregational Patient refused 08/08/2019 services? Do you belong to any clubs or organizations such as No 08/08/2019 yazdanism groups, unions, fraScribd or athletic groups, or school groups? How [...] # refills: 5 Last Office Visit with [facility] or Health prescribing provider: 04/08/15 Future Office visit: Routing refill request to provider for review/approval because: Drug not on the [facility], [facility] or Health refill protocol or controlled substance RACKER documented in this encounter Plan of Treatment Not on filedocumented as of this encounter Visit Diagnoses Diagnosis Cervicalgia - Primary History of fusion of cervical spine Arthrodesis status History of lumbar fusion documented in this encounter Additional Health Concerns Assessment Noted Time PHQ-9 Depression Total Score: 13 07/09/2015 7:49 AM CS T documented as of this encounter Care Teams Licensed Real Estate Broker Relationship Specialty Start Date End Date Vanda Guerrero MD PCP - General Internal Medicine 04/08/15 01/08/19 [address] [facility] [address] [place], [place] [address] documented as of this encounter
--- OUTSIDE RECORDS SUMMARY | 2022-05-09 13:31 | XMS_ITS | Encounter Summary ---
:1965 Author Organization [place] Address [address] [place] [address]. [place] [address] Care Team Providers Name Role Phone Vanda Guerrero MD Primary Care Provider [phone] Encounter Details Date Type Department Care Team Description 10/03/2015 Orders Only [facility] Vanda Guerrero Abnormal finding on [place] Toribio MD thyroid function test [address] (Primary Dx) [place] [phone] [facility] [phone] [place] [address] (Wo rk) Social History [...] How often do you attend latter-day or rastafari Patient refused 08/08/2019 services? Do you belong to any clubs or organizations such as 08/08/2019 latter-day groups, unions, fraternal or athletic [...] Thyroid stimulating immunoglobulin (12/03/2015 8:50 AM CDT) [facility] Method Time Signature Thyroid Stim <1.0 [place] Immunog Reference range: <=1.3 [facility] Unit: TSI index PIN[place] (Note) Test Performed by: [address] [address] Customer Agent: Huseyin Dash II, M.D., Ph.D. Specimen Anatomical Collection Method Collection Time Receive d Time (Source) Location / / Volume Laterality Blood specimen 12/03/2015 8:50 AM 016 8:55 (specimen) CDT AM CDT Vanda Guerrero MD LAB - BLOOD ORDERABLES Performing Organization Address City/State/ZIP Code Phon e Number [facility] [place] 1440 [facility] [place] [address] documented in this encounter Visit Diagnoses Diagnosis Abnormal finding on thyroid function shirley t - Primary Nonspecific abnormal results of thyroid function study documented in this encounter Additional Health Concerns Assessment Noted Time PHQ-9 Depression Total Score: 13 07/09/2015 7:49 AM CS T documented as of this encounter Care Teams Digitizer Operator Relationship Specialty Start Date End Date Vanda Guerrero MD PCP - General Internal Medicine 04/08/15 01/08/19 2416 [facility] [place] [address] documented as of this encounter
--- OUTSIDE RECORDS SUMMARY | 2022-05-09 13:31 | XMS_ITS | Encounter Summary ---
:1965 Author Organization [place] Address [address] [place] [address] Care Team Providers Name Role Phone Vanda Guerrero MD Primary Care Provider [phone] Reason for Visit Reason Onset Date Comments Refill Request 12/31/2015 tiZANidine (ZANAFLEX ) 4 MG tablet Encounter Details Date Type Department Care Team Description 12/31/2015 Refill [facility] Vanda Lal, Refill Request 1440 Everlyirina Bass MD (tiZANidine (ZANAFLEX) [place] [phone] [place] [address] 4 MG tablet) [phone] [facility] [place] [phone] (Wo rk) Social History Tobacco Use Types [...] How often do you attend pentecostalism or advent Patient refused 08/08/2019 services? Do [...] Last Office Visit with [facility] provider: 12/22/2015 Future Office visit: Next 5 appointments (look out 90 days) Mar 23, 2016 10:20 AM Office Visit with Vanda Guerrero MD [facility] ([facility]) [address] [place] [phone] Routing refill request to provider for review/approval [...] documented as of this encounter Care Teams Dip Stand Loader Relationship Specialty Start Date End Date Vanda Guerrero MD PCP - General Internal Medicine 04/08/15 01/08/19 0189 [facility] [place] [address] documented as of this encounter
--- OUTSIDE RECORDS SUMMARY | 2022-05-09 13:31 | XMS_ITS | Encounter Summary ---
:1965 Author Organization [facility] Address [address] [place] [address] Care Team Providers Name Role Phone Vanda Guerrero MD Primary Care Provider [phone] Vanda Guerrero MD Unavailable JeanaNoreen girard AIRPORT TOWER CONTROLLER LOW PRESSURE BOILER OPERATOR Unavailable JeanaNoreen girard AIRPORT TOWER CONTROLLER LOW PRESSURE BOILER OPERATOR Unavailable JeanaNoreen girard AIRPORT TOWER CONTROLLER LOW PRESSURE BOILER OPERATOR Primary Care Provider Kalyan Galvan Unavailable Unavailable Lashae Trevino [facility] Unavailable [phone] Eduardo Sharma MD Unavailable iRos Monteiro MD Unavailable Marcelo Artis-Aleyda Unavailable [phone] Rodrigo ManC Unavailable Encounter Details Date Type Department Care Team Description 02/11/2016 [facility] Vanda Ray MD [address] [place] [phone] [place] [address] (Wo rk) Social History [...] How often do you attend religion or roman catholic Patient refused 08/08/2019 services? [...] documented as of this encounter Care Teams Nylon Machine Operator Relationship Specialty Start Date End Date Vanda Guerrero, PCP - General Internal Medicine 04/08/15 01/08/[address] [place] [address] [place] [phone] Vanda Guerrero, PCP - Assigned PCP 07/24/16 06/15/[address] [place] [address] [place] [phone] [place] PCP - Assigned PCP 06/16/18 08/13/18 SEAN Haley LOW PRESSURE BOILER OPERATOR [address] [place] [address] [place] [phone] [place] PCP - General Nurse Practitioner 01/09/19 12/12/21 SEAN Haley LOW PRESSURE BOILER OPERATOR [address] [place] [address] [place] [address] [place] Assigned PCP 06/16/18 SEAN Haley LOW PRESSURE BOILER OPERATOR [address] [place] [address] [place] [address] Kalyan Galvan Personal Advocate & 08/08/19 Liaison (PAL) Lashae Trevino Pharmacist Pharmacist 10/14/19 12/01/20 CLAUDIA Beck [address] [place] [place] [id number] Eduardo Sharma MD Assigned Sleep Provider 04/02/20 05/07/21 6[address] ROSHAN [address] [place] [id number] Rios Monteiro MD Assigned Musculoskeletal 04/02/20 08/24/20 [address] [facility] Provider [address] [place], [place] [address] Marcelo Artis Assigned Musculoskeletal 08/25/20 08/20/21 MIKAYLA Nuno Provider [address] [facility] [address] [place], [place] [id number] Rodrigo Man Assigned Surgical 08/25/2011/27 MIKAYLA Lacy Provider 6545 [address] GARCIA [address] [place], [place] [address] documented as of this encounter
--- OUTSIDE RECORDS SUMMARY | 2022-05-09 13:31 | XMS_ITS | Encounter Summary ---
:1965 Author Organization [facility] Address [address] [place] [address]. [place] [address] Care Team Providers Name Role Phone Vanda Guerrero MD Primary Care Provider [phone] Encounter Details Date Type Department Care Team Description 10/03/2015 Orders Only [facility] Vanda Guerrero Abnormal finding on Pino Toribio MD thyroid function test [address] (Primary Dx) [place] [address] [facility] [phone] [place] [address] (Wo rk) Social History [...] How often do you attend taoist or jewish Patient refused 08/08/2019 services? Do you belong to any clubs or organizations such as 08/08/2019 taoist groups, unions, fraternal or athletic [...] athologist Signature TSH 3.93 0.40 - 4.00 [facility] mU/L [facility] Specimen Anatomical Collection Method Collection Time Receive d Time (Source) Location / / Volume Laterality Blood specimen 12/03/2015 8:50 AM 016 8:55 (specimen) CDT AM CDT Vanda Guerrero MD LAB - BLOOD ORDERABLES Performing Organization Address City/State/ZIP Code Phon e Number [facility] [address] [place] [address] documented in this encounter Visit Diagnoses Diagnosis Abnormal finding on thyroid function shirley t - Primary Nonspecific abnormal results of thyroid function study documented in this encounter Additional Health Concerns Assessment Noted Time PHQ-9 Depression Total Score: 13 07/09/2015 7:49 AM CS T documented as of this encounter Care Teams Roving Technician Relationship Specialty Start Date End Date Vanda Guerrero MD PCP - General Internal Medicine 04/08/15 01/08/[address] [facility] [address] documented as of this encounter
--- OUTSIDE RECORDS SUMMARY | 2022-05-09 13:31 | XMS_ITS | Encounter Summary ---
:1965 Author Organization [place] Address [address] [place] [address]. [place] [address] Care Team Providers Name Role Phone Vanda Guerrero MD Primary Care Provider [phone] Reason for Visit Reason Onset Date Comments Refill Request 09/10/2015 METFORMIN HCL 500MG Encounter Details Date Type Department Care Team Description 09/10/2015 Refill [facility] Vanda Lal, Refill Request 1440 Priscilla Bass MD (METFORMIN HCL 500MG) [place] [phone] 6563 [facility] [phone] [facility] [place] [address] [...] How often do you attend alevism or orthodoxy Patient refused 08/08/2019 services? Do [...] PM CDT Prescription refilled x 1 per [facility] Refill Protocol. Has follow up scheduled. Telephone Encounter - Eri Middleton - 09/10/2015 11:17 AM CDT METFORMIN HCL 500MG Last Written Prescription Date: 06/10/2015 Last Fill Quantity: 180, # refills: 0 Last Office Visit with [facility], P or [facility] prescribing provider: 07/08/2015 Next 5 appointments (look out 90 days) Sep 29, 2015 9:40 AM MyChart Carlos with Vanda Guerrero MD [facility] ([facility]) 1440 [facility] [place] [address] MICROL <5 08/10/2014 [...] as of this encounter Care Teams Team Otr Truck Driver Relationship Specialty Start Date End Date Vanda Guerrero MD PCP - General Internal Medicine 04/08/15 01/08/[address] [place] [address] [place] [address] documented as of this encounter
--- OUTSIDE RECORDS SUMMARY | 2022-05-09 13:31 | XMS_ITS | Encounter Summary ---
:1965 Author Organization [place] Address [address] [place] [address]. [place] [address] Care Team Providers Name Role Phone Vanda Guerrero MD Primary Care Provider [phone] Reason for Visit (Routine) - Closed Specialty Diagnoses / Procedures Referred By Contact Refer red To Contact Radiology / [facility]. Procedures US BREAST LT [facility] [address], [address] [place] [address] Phone: Referral ID Status Reason Start Date Expiration Date Visits Requ ested Visits Authorized [id number] Closed 09/30/2015 09/29/2016 1 1 Encounter Details Date Type Department Care Team Description 09/30/2015 Hospital Encounter [facility] Vanda Guerrero reast pain, left [facility] [address] [place] [address] [address], [address] [place] [address] [place], [place] [phone] [address] (Work) [phone] Social History Tobacco Use Types Packs/Day Years [...] How often do you attend anabaptism or yarsanism Patient refused 08/08/2019 services? Do you belong to any clubs or organizations such as No 08/08/2019 anabaptism groups, [employer], frashopatplaces or athletic groups, or school groups? How [...] 2 Fibromyalgia times daily fluticasone (FLONASE) 50 [employer] 1-2 sprays 3 Package 3 10/0605/03/2016 MCG/ACT [...] documented as of this encounter Care Teams Lamp Assembler Relationship Specialty Start Date End Date Vanda Guerrero MD PCP - General Internal Medicine 04/08/15 01/08/19 2360 [facility] [place] [address] documented as of this encounter
--- OUTSIDE RECORDS SUMMARY | 2022-05-09 13:31 | XMS_ITS | Encounter Summary ---
:1965 Author Organization [place] Address [address] [place] [address]. [place] [address] Care Team Providers Name Role Phone Vanda Guerrero MD Primary Care Provider [phone] Encounter Details Date Type Department Care Team Description 09/30/2015 Orders Only [facility] Eag an Type 2 diabetes mellitus wit hout complication (H); [address] [place] [address] Social History Tobacco Use Types [...] How often do you attend zoroastrian or latter day Patient refused 08/08/2019 services? [...] Signature T4 Free 1.01 0.76 - 1.46 [facility] ng/dL [facility] Specimen Anatomical Collection Method Collection Time Receive d Time (Source) Location / / Volume Laterality 09/30/2015 9:22 AM 6 9:23 CDT AM CDT Vanda Guerrero MD LAB - BLOOD ORDERABLES Performing Organization Address City/State/ZIP Code Phon e Number [facility] [address] [place] [address] Microalbumin quantitative random urine (09/30/2015 9:22 AM CDT) athologist Signature Creatinine 174 mg/dL [place] Urine [facility] Albumin Urine 10 mg/L [place] mg/L [facility] Albumin Urine 5.67 0 - 25 [place] mg/g Cr mg/g Cr [facility] Specimen Anatomical Collection Method Collection Time Receive d Time (Source) Location / / Volume Laterality Urine specimen 09/30/2015 9:22 AM 016 9:23 (specimen) CDT AM CDT Vanda Guerrero MD LAB - URINE ORDERABLES Performing Organization Address City/State/ZIP Code Phon e Number [facility] [address] [place] [address] [facility] [address] [place] [address], [place] [phone] Vitamin D Deficiency (09/30/2015 9:22 AM CDT) athologist Signature Vitamin D 36 20 - 75 [facility] Deficiency ug/L [facility] Comment: Season, race, dietary intake, and treatm ent affect the concentration of 31-roqfaah-Jizkapl D. Values may decrea se during winter [...] LAB - BLOOD ORDERABLES Performing Organization Address City/[facility]/ZIP [facility] Phon e Number [address] Vitamin B12 (09/30/2015 9:22 AM CDT) athologist Signature Vitamin B12 482 193 - 986 [facility] pg/mL [facility] Comment: Interp: [phone] = Normal Specimen Anatomical Collection Method Collection Time Receive d Time (Source) Location / / Volume Laterality Blood specimen 09/30/2015 9:22 AM 016 9:23 (specimen) CDT AM CDT Vanda Guerrero MD LAB - BLOOD ORDERABLES Performing Organization Address City/[facility]/ZIP Code Phon e Number [address] (ABNORMAL) TSH with free T4 reflex (09/30/2015 9:22 AM CDT) athologist Signature TSH 0.07 (L) 0.40 - [facility] 4.00 mU/L [facility] Specimen Anatomical Collection Method Collection Time Receive d Time (Source) Location / / Volume Laterality Blood specimen 09/30/2015 9:22 AM 016 9:23 (specimen) CDT AM CDT Vanda Guerrero MD LAB - BLOOD ORDERABLES Performing Organization Address City/[facility]/ZIP Code Phon e Number [facility] [address] [place] [address] (ABNORMAL) Comprehensive metabolic panel (09/30/2015 9:22 AM CDT) Patholo gist Method Time Signature Sodium 145 (H) 133 - 144 [place] mmol/L [facility] Potassium 4.0 3.4 - 5.3 [place] mmol/L [facility] Chloride 110 (H) 94 - 109 [place] mmol/L [facility] Carbon Dioxide 25 20 - 32 [place] mmol/L [facility] Anion Gap 10 3 - 14 [place] mmol/L [facility] Glucose 104 (H) 70 - 99 [place] mg/dL [facility] Urea Nitrogen 10 7 - 30 [place] mg/dL [facility] Creatinine 0.67 0.52 - [place] 1.04 [facility] mg/dL [facility] GFR Estimate >90 >60 [place] Non GFR Calc mL/min/1. CLINICS 7m2 [facility] GFR Estimate If >90 >60 [place] Black GFR Calc mL/min/1. CLIN ICS 7m2 [facility] Calcium 9.7 8.5 - [facility] 10.1 CLINICS mg/dL [facility] Bilirubin Total 0.4 0.2 - 1.3 [place] mg/dL [facility] Albumin 3.6 3.4 - 5.0 [place] g/dL [facility] Protein Total 8.2 6.8 - 8.8 [place] g/dL [facility] Alkaline 148 40 - 150 [place] Phosphatase U/L [facility] ALT 47 0 - 50 [place] U/L [facility] AST 19 0 - 45 [place] U/L [facility] Specimen Anatomical Collection Method Collection Time Receive d Time (Source) Location / / Volume Laterality Blood specimen 09/30/2015 9:22 AM 016 9:23 (specimen) CDT AM CDT Vanda Guerrero MD LAB - BLOOD ORDERABLES Performing Organization Address City/State/ZIP Code Phon e Number [facility] [address] [place] [address] (ABNORMAL) Hemoglobin A1c (09/30/2015 9:22 AM CDT) [...] Number [facility] JACLYN 14[address] [facility] [place] [address] documented in this encounter Visit Diagnoses Diagnosis Type 2 diabetes mellitus without complic ation (H) Chronic fatigue Other malaise and fatigue documented in this encounter Additional Health Concerns Assessment Noted Time PHQ-9 Depression Total Score: 13 07/09/2015 7:49 AM CS T documented as of this encounter Care Teams Market Research Analyst Relationship Specialty Start Date End Date Vanda Guerrero MD PCP - General Internal Medicine 04/08/15 01/08/19 4[address] [facility] [place] [address] documented as of this encounter
--- OUTSIDE RECORDS SUMMARY | 2022-05-09 13:31 | XMS_ITS | Encounter Summary ---
:1965 Author Organization [place] Address [address] [place] [address] Care Team Providers Name Role Phone Vanda Guerrero MD Primary Care Provider [phone] Reason for Visit Reason Onset Date Comments Panel Management 03/09/2016 Encounter Details Date Type Department Care Team Description 03/09/2016 Telephone [facility] Vanda Lal, Panel Management 1440 [facility] [place] [phone] 7023 [facility] [phone] [facility] [place] [address] (Wo rk) Social [...] How often do you attend taoism or christianity Patient refused 08/08/2019 services? Do you belong to any clubs or organizations such as Sarahi 08/08/2019 taoism groups, unions, fraternal or athletic [...] DM f/u in March as requested. Lori Wbeer MA documented in this encounter Plan of Treatment Not on filedocumented as of this encounter Visit Diagnoses Not on filedocumented in this encounter Additional Health Concerns Assessment Noted Time PHQ-9 Depression Total Score: 10 12/23/2015 7:15 AM CD T documented as of this encounter Care Teams Rnp Relationship Specialty Start Date End Date Vanda Guerrero MD PCP - General Internal Medicine 04/08/15 01/08/[address] [facility] [address] [place], [place] [address] documented as of this encounter
--- OUTSIDE RECORDS SUMMARY | 2022-05-09 13:31 | XMS_ITS | Encounter Summary ---
:1965 Author Organization [place] Address [address] [place] [address] Care Team Providers Name Role Phone Vanda Guerrero MD Primary Care Provider [phone] Reason for Visit Reason Onset Date Comments Refill Request 02/09/2016 SIMVASTATIN 20MG Refill Request 02/09/2016 CITALOPRAM 20MG Encounter Details Date Type Department Care Team Description 02/09/2016 Refill [facility] Vanda Lal, Refill Request 1440 Arjayirina Bass MD (SIMVASTATIN 20MG); [place] [address] [facility]6 [facility] Refill Request [phone] NASIR ANDRE (CITALOPRAM 20MG) [place] [address] [...] How often do you attend mormon or adventism Patient refused 08/08/2019 services? Do [...] 2:20 PM CDT Simvastatin Prescription approved per [facility] Refill Protocol. Celexa Medication is being filled for 1 time refill only due to: pt needs updated PHQ9-ok to wait until upcoming appt 03/23/16? Kassie Roberts, RN Telephone Encounter - Marisa Matthew - 02/10/2016 3:35 PM CDT CITALOPRAM 20MG Last Written Prescription Date: 11/09/2015 Last Fill Quantity: 90, # refills: 0 Last Office Visit with [facility] primary care provider: 12/22/2015 Next 5 appointments (look out 90 days) Mar 23, 2016 10:20 AM Office Visit with Vanda Guerrero MD [facility] [address] [place] [phone] Last PHQ-9 score on record= PHQ-9 SCORE 12/22/2015 Total Score - Total Score MyChart - Total Score 10 Telephone Encounter - Marisa Matthew - 02/09/2016 7:45 AM CDT SIMVASTATIN 20MG Last Written Prescription Date: 11/09/2015 Last Fill Quantity: 90, # refills: 0 Last Office Visit with [facility], [facility] or [facility] prescribing provider: 12/22/2015 Next 5 appointments (look out 90 days) Mar 23, 2016 10:20 AM Office Visit with Vanda Guerrero MD [facility] ([facility]) [address] [place] [phone] CHOL 152 12/03/2015 HDL 51 12/03/2015 [...] documented as of this encounter Care Teams Cone Classifier Tender Relationship Specialty Start Date End Date Vanda Guerrero MD PCP - General Internal Medicine 04/08/15 01/08/19 [address] [address] [place], [place] [address] documented as of this encounter
--- OUTSIDE RECORDS SUMMARY | 2022-05-09 13:31 | XMS_ITS | Encounter Summary ---
:1965 Author Organization [place] Address [address] [place] [address]. [place] [address] Care Team Providers Name Role Phone Vanda Guerrero MD Primary Care Provider [phone] Reason for Referral Consultation - Closed Specialty Diagnoses / Procedures Referred By Contact Refer red To Contact Diagnoses Left foot pain Vanda Guerrero MD [facility] [address] [facility] [address] [place] [address] [place] [address] [place] [address] Phone: Fax: Referral ID Status Reason Start Date Expiration Date Visits Requ ested Visits Authorized [id number] Closed 03/26/2016 03/26/2017 1 1 Reason for Visit Reason Comments Diabetes Lipids Recheck Medication Flu Shot Encounter Details Date Type Department Care Team Description 03/23/2016 Office Visit [facility] Vanda Guerrero Type 2 d iabetes mellitus without complication, without long-term current use of insulin (H) (Primary Dx); [place] Toribio MD Elevated alkaline phosphatase level; [address] [facility] Left foot pain; DAV[place] DR Moderate episode of recurrent major depr essive disorder (H); [address] [place] [address] Gastroesophageal reflux disease without esophagitis; [phone] Fibromyalgia; (Work) Migraine without status migrainosus, not [...] to be active. Recently started therapy at [facility] - going weekly for the [...] SPLIT VIRUS IM > 3 YO (QUADRIVALENT) [22533] Vaccine Administration, Each Additional [90488] Vanda Guerrero MD [facility] Injectable Influenza Immunization Documentation 1. Is the person to be vaccinated sick today? No 2. Does the person to be vaccinated have an allergy to eggs or to a component of the vaccine? No 3. Has the person to be vaccinated today ever had a serious reaction to influenza vaccine in the past? No 4. Has the person to be vaccinated ever had Guillain-[place] syndrome? No Form completed by patient documented [...] Signature GGT 33 0 - 40 U/L [facility] Specimen Anatomical Collection Method Collection Time Receive d Time (Source) Location / / Volume Laterality 03/23/2016 7:17 PM 6 7:19 CDT PM CDT Vanda Guerrero MD LAB - BLOOD ORDERABLES Performing Organization Address City/State/ZIP Code Phon e Number [facility] [address] [place] [address] (ABNORMAL) Hemoglobin A1c (03/23/2016 7:17 PM CDT) Patholo gist Method Time Signature Hemoglobin A1C 6.1 (H) 4.3 - 6.0 [facility] Specimen Anatomical Collection Method Collection Time Receive d Time (Source) Location / / Volume Laterality Blood specimen 03/23/2016 7:17 PM 016 7:19 (specimen) CDT PM CDT Vanda Guerrero MD LAB - BLOOD ORDERABLES Performing Organization Address City/State/ZIP Code Phon e Number [facility] [address] [place] [address] (ABNORMAL) Comprehensive metabolic panel (03/23/2016 7:17 PM CDT) [facility] Method Time Signature Sodium 142 133 - 144 [place] mmol/L [facility] Potassium 4.4 3.4 - 5.3 [place] mmol/L [facility] Chloride 110 (H) 94 - 109 [place] mmol/L [facility] Carbon Dioxide 29 20 - 32 [place] mmol/L [facility] Anion Gap 3 3 - 14 [place] mmol/L [facility] Glucose 106 (H) 70 - 99 [place] mg/dL [facility] Urea Nitrogen 17 7 - 30 [place] mg/dL [facility] Creatinine 0.77 0.52 - [place] 1.04 mg/dL [facility] GFR Estimate 78 >60 [place] mL/min/1.[address] [facility] Comment: Non GFR Calc GFR Estimate If Black >90 >60 mL/min/1.7m2 F [facility] GFR Calc [place] [facility] Calcium 9.6 8.5 - 10.1 mg/dL [place] CLIN ICS [facility] Bilirubin Total 0.3 0.2 - 1.3 mg/dL [facility] Albumin 3.8 3.4 - 5.0 g/dL [facility] Protein Total 7.9 6.8 - 8.8 g/dL [place] CL INICS [facility] Alkaline Phosphatase 159 (H) 40 - 150 U/L [facility] ALT 30 0 - 50 U/L [facility] AST 16 0 - 45 U/L [facility] Specimen Anatomical Collection Method Collection Time Receive d Time (Source) Location / / Volume Laterality Blood specimen 03/23/2016 7:17 PM 016 7:19 (specimen) CDT PM CDT Vanda Guerrero MD LAB - BLOOD ORDERABLES Performing Organization Address City/State/ZIP Code Phon e Number [facility] [address] [place] [address] documented in this encounter Visit Diagnoses Diagnosis [...] Need for prophylactic vaccination with c ombined kjngmcqpsn-ohldokp-gfhhxdzds (DTP) vaccine Need for prophylactic vaccination and in oculation against influenza documented in this encounter Additional Health Concerns Assessment Noted Time PHQ-9 Depression Total Score: 10 12/23/2015 7:15 AM CD T documented as of this encounter Care Teams Guest Services Director Relationship Specialty Start Date End Date Vanda Guerrero MD PCP - General Internal Medicine 04/08/15 01/08/19 [address] [facility] [place] [address] documented as of this encounter
--- OUTSIDE RECORDS SUMMARY | 2022-05-09 13:31 | XMS_ITS | Encounter Summary ---
:1965 Author Organization [facility] Address [address] [place] [address]. [place] [address] Care Team Providers Name Role Phone Vanda Guerrero MD Primary Care Provider [phone] Reason for Visit Reason Onset Date Comments Refill Request 03/07/2016 METFORMIN 500MG Encounter Details Date Type Department Care Team Description 03/07/2016 Refill [facility] Vanda Lal, Refill Request 1440 Priscilla Bass MD (METFORMIN 500MG) [place] [phone] [facility] [phone] [facility] [place] [address] (Wo rk) [...] How often do you attend yarsani or jewish Patient refused 08/08/2019 services? Do [...] AM Office Visit with Vanda Guerrero MD [facility] [place] [facility] [address] [place] [phone] BP Readings from Last 3 Encounters: [...] as of this encounter Care Teams Net Manager Relationship Specialty Start Date End Date Vanda Guerrero MD PCP - General Internal Medicine 04/08/15 01/08/19 45[address] [facility] [place] [address] documented as of this encounter
--- OUTSIDE RECORDS SUMMARY | 2022-05-09 13:31 | XMS_ITS | Encounter Summary ---
:1965 Author Organization [place] Address [address] [place] [address] Care Team Providers Name Role Phone Vanda Guerrero MD Primary Care Provider [phone] Reason for Visit Reason Comments Menopausal Sx Encounter Details Date Type Department Care Team Description 09/29/2015 Office Visit [facility] Vanda Guerrero Left-ant ed low back pain with left-sided sciatica (Primary Dx); [place] Toribio MD Breast pain, left; [address] [facility] Type 2 diabetes mellitus wit hout complication (H); [place] [address] [facility] Major depressive disorder, recurrent epi sode, moderate (H); [phone] [place] [address] Hypertension goal BP (blood pressure) < 130/80; [phone] Hyperlipidemia LDL goal <100; (Work) History of [...] How often do you attend christian or alevism Patient refused 08/08/2019 services? Do [...] three times daily if you can Call [phone] to set up a special mammogram and [...] temporarily, and 2 permanently. 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 One year old is 21 [...] three times daily if you can Call [phone] to set up a special mammogram and ultrasound to investigate your breast pain Please come back in about 6 weeks to review everything - in the meantime, you can try Replens or Rephresh (available OTC) I'm happy to send you to physical therapy or back to the surgeons anytime - let me know V[facility]errero [facility] documented in this encounter Nursing Notes [...] CDT) athologist Signature Cholesterol 152 <200 mg/dL [facility] Triglycerides 109 <150 mg/dL [facility] Comment: Fasting specimen HDL Cholesterol 51 >49 mg/dL [facility] CS [facility] LDL Cholesterol Calculated 79 <100 mg/dL [facility] Comment: Desirable: <100 mg/dl Non HDL Cholesterol 101 <130 mg/dL [facility] Specimen Anatomical Collection Method Collection Time Receive d Time (Source) Location / / Volume Laterality Blood specimen 12/03/2015 8:50 AM 016 8:55 (specimen) CDT AM CDT Vanda Guerrero MD LAB - BLOOD ORDERABLES Performing Organization Address City/State/ZIP Code Phon e Number [facility] [address] [place] [address] Microalbumin quantitative random urine (09/30/2015 9:22 AM CDT) athologist Signature Creatinine 174 mg/dL [place] Urine [facility] Albumin Urine 10 mg/L [place] mg/L [facility] Albumin Urine 5.67 0 - 25 [place] mg/g Cr mg/g Cr [facility] Specimen Anatomical Collection Method Collection Time Receive d Time (Source) Location / / Volume Laterality Urine specimen 09/30/2015 9:22 AM 016 9:23 (specimen) CDT AM CDT Vanda Guerrero MD LAB - URINE ORDERABLES Performing Organization Address City/State/ZIP Code Phon e Number [facility] [address] [place] [address] [phone] [facility] [address] [place] [address], U [phone] Vitamin D Deficiency (09/30/2015 9:22 AM CDT) athologist Signature Vitamin D 36 20 - 75 [facility] Deficiency ug/L [facility] Comment: Season, race, dietary intake, and treatm ent affect the concentration of 64-iyemgdv-Kmmwypg D. Values may decrea se during winter [...] Organization Address City/State/ZIP Code Phon e Number [address] Vitamin B12 (09/30/2015 9:22 AM CDT) athologist Signature Vitamin B12 482 193 - 986 [facility] pg/mL [facility] Comment: Interp: [phone] = Normal Specimen Anatomical Collection Method Collection Time Receive d Time (Source) Location / / Volume Laterality Blood specimen 09/30/2015 9:22 AM 016 9:23 (specimen) CDT AM CDT Vanda Guerrero MD LAB - BLOOD ORDERABLES Performing Organization Address City/State/ZIP Code Phon e Number [facility] [address] (ABNORMAL) TSH with free T4 reflex (09/30/2015 9:22 AM CDT) P athologist Signature TSH 0.07 (L) 0.40 - [facility] 4.00 mU/L [facility] Specimen Anatomical Collection Method Collection Time Receive d Time (Source) Location / / Volume Laterality Blood specimen 09/30/2015 9:22 AM 016 9:23 (specimen) CDT AM CDT Vanda Guerrero MD LAB - BLOOD ORDERABLES Performing Organization Address City/State/ZIP Code Phon e Number [facility] [address] [place] [address] (ABNORMAL) Comprehensive metabolic panel (09/30/2015 9:22 AM CDT) [facility] gist Method Time Signature Sodium 145 (H) 133 - 144 [place] mmol/L [facility] Potassium 4.0 3.4 - 5.3 [place] mmol/L [facility] Chloride 110 (H) 94 - 109 [place] mmol/L [facility] Carbon Dioxide 25 20 - 32 [place] mmol/L [facility] Anion Gap 10 3 - 14 [place] mmol/L [facility] Glucose 104 (H) 70 - 99 [place] mg/dL [facility] Urea Nitrogen 10 7 - 30 [place] mg/dL [facility] Creatinine 0.67 0.52 - [place] 1.04 [facility] mg/dL [facility] GFR Estimate >90 >60 [place] Non GFR Calc mL/min/1. CLINICS 7m2 [facility] GFR Estimate If >90 >60 [facility] Black GFR Calc mL/min/1. CLIN ICS 7m2 [facility] Calcium 9.7 8.5 [facility] 10.1 [facility] mg/dL [facility] Bilirubin Total 0.4 0.2 - 1.3 [place] mg/dL [facility] Albumin 3.6 3.4 - 5.0 [place] g/dL [facility] Protein Total 8.2 6.8 - 8.8 [place] g/dL [facility] Alkaline 148 40 - 150 [facility] Phosphatase U/L [facility] ALT 47 0 - 50 [facility] U/L [facility] AST 19 0 - 45 [facility] U/L [facility] Specimen Anatomical Collection Method Collection Time Receive d Time (Source) Location / / Volume Laterality Blood specimen 09/30/2015 9:22 AM 016 9:23 (specimen) CDT AM CDT Vanda Guerrero MD LAB - BLOOD ORDERABLES Performing Organization Address City/State/ZIP Code Phon e Number [facility] [address] [place] [address] (ABNORMAL) Hemoglobin A1c (09/30/2015 9:22 AM CDT) P athologist Signature Hemoglobin A1C 6.2 (H) 4.3 - 6.0 [facility] Specimen Anatomical Collection Method Collection Time Receive d Time (Source) Location / / Volume Laterality Blood specimen 09/30/2015 9:22 AM 016 9:23 (specimen) CDT AM CDT Vanda Guerrero MD LAB - BLOOD ORDERABLES Performing Organization Address City/State/ZIP Code Phon e Number [facility] [place] [address] [facility] [place] [address] documented in this encounter Visit Diagnoses Diagnosis [...] as of this encounter Care Teams Rn Pacu Relationship Specialty Start Date End Date Vanda Guerrero MD PCP - General Internal Medicine 04/08/15 01/08/19 36[address] [facility] [place] [address] documented as of this encounter
--- OUTSIDE RECORDS SUMMARY | 2022-05-09 13:31 | XMS_ITS | Encounter Summary ---
:1965 Author Organization [place] Address [address] [place] [address] Care Team Providers Name Role Phone Vanda Guerrero MD Primary Care Provider [phone] Encounter Details Date Type Department Care Team Description 01/07/2016 Orders Only [facility] Eag an Colon cancer screening 14[address] [place] [address] Social History Tobacco Use Types [...] How often do you attend sikhism or jew Patient refused 08/08/2019 services? Do [...] logist Time Signature Occult Blood Negative NEG [facility] Specimen Anatomical Collection Method Collection Time Receive d Time (Source) Location / / Volume Laterality Stool specimen 01/07/2016 11:41 6 (specimen) AM CDT 11:42 AM CDT Vanda Guerrero MD LAB - STOOLS ORDERABLES Performing Organization Address City/State/ZIP Code Phon e Number [facility] 500 [place], [place] [phone] [place] [address] documented in this encounter Visit Diagnoses Diagnosis Colon cancer screening Special screening for malignant neoplasm s, colon documented in this encounter Additional Health Concerns Assessment Noted Time PHQ-9 Depression Total Score: 10 12/23/2015 7:15 AM CD T documented as of this encounter Care Teams Pharmaceutical Physician Relationship Specialty Start Date End Date Vanda Guerrero MD PCP - General Internal Medicine 04/08/15 01/08/19 [address] [facility] [place] [address] documented as of this encounter
--- OUTSIDE RECORDS SUMMARY | 2022-05-09 13:31 | XMS_ITS | Encounter Summary ---
:1965 Author Organization [place] Address [address] [place] [address]. [place] [address] Care Team Providers Name Role Phone Vanda Guerrero MD Primary Care Provider [phone] Reason for Visit Reason Comments Diabetes Lipids Recheck Medication Encounter Details Date Type Department Care Team Description 12/22/2015 Office Visit [facility] Vanda Guerrero Type 2 d iabetes mellitus without complication (H) (Primary Dx); [place] Toribio MD Recurrent major depressive disorder, rem ission status unspecified (H); [address] [facility] [address] [place] [address] Hyperlipidemia LDL goal <100 ; [place] [address] [facility] Fibromyalgia; [phone] [place] [address] Symptomatic menopausal or female climact [place]; [phone] Anxiety; (Work) History of lumbar fusion; Colon [...] How often do you attend quaker or yazdanism Patient refused 08/08/2019 services? Do [...] Guerrero MD - 12/22/2015 9:31 AM CDT supervising producer your FIT test for colon cancer at [...] Unit: TSI index (Note) Test Performed by: [facility] - [address] [address] [address] Patroller: Huseyin Dash II, M.D., Ph.D. ASSESSMENT/PLAN: ICD-10-CM [...] neuropathy Z13.89 Normal foot exam Patient Instructions supervising producer your FIT test for colon cancer at [...] current medications for now Vanda Guerrero MD [facility] documented in this encounter Nursing Notes Lori [...] Signature Occult Blood Negative NEG [facility] Specimen Anatomical Collection Method Collection Time Receive d Time (Source) Location / / Volume Laterality Stool specimen 01/07/2016 11:41 6 (specimen) AM CDT 11:42 AM CDT Vanda Guerrero MD LAB - STOOLS ORDERABLES Performing Organization Address City/State/ZIP Code Phon e Number [facility] [address] [place], [place] [phone] [place] [address] documented in this encounter Visit Diagnoses Diagnosis [...] documented as of this encounter Care Teams Audiology Doctor Relationship Specialty Start Date End Date Vanda Guerrero MD PCP - General Internal Medicine 04/08/15 01/08/19 [address] [facility] [place] [address] documented as of this encounter
--- OUTSIDE RECORDS SUMMARY | 2022-05-09 13:31 | XMS_ITS | Encounter Summary ---
:1965 Author Organization [place] Address [address] [place] [address]. [place] [address] Care Team Providers Name Role Phone Vanda Guerrero MD Primary Care Provider [phone] Reason for Visit Reason Onset Date Comments Refill Request 02/20/2016 loratadine-pseudoePH EDrine (CLARITIN-D 24-HOUR) 10-240 MG per tablet Encounter Details Date Type Department Care Team Description 02/20/2016 Refill [facility] Eag Selma Anthony Refill Request 14[address] [facility] J, RAILCAR SWITCHER VAT HOUSE SUPERVISOR (loratadine-pseudoePHEDr [place] [address] [facility] (CLARITIN-D 24-HOUR) [phone] 10-240 MG per tablet) DAV[place] [...] How often do you attend scientologist or methodist Patient refused 08/08/2019 services? Do [...] pharmacy. Lori Weber MA Telephone Encounter - Vadna Guerrero MD - 02/23/2016 10:01 AM CDT Script printed, signed, and in station out basket. Telephone Encounter - Raven Emmanuel RN - 02/23/2016 9:30 AM CDT Routing refill request to provider for review/approval because: Drug not on the [facility] or [facility] refill protocol or controlled substance Raven Emmanuel RN Telephone Encounter - Sukh Beltran - 02/20/2016 1:00 PM CDT loratadine-pseudoePHEDrine (CLARITIN-D 24-HOUR) 10-240 MG per tablet Last Written Prescription Date: 12-22-2014 Last Fill Quantity: 90, # refills: prn Last Office Visit with [facility], [facility] or Health prescribing provider: 12-22-2015 Next 5 appointments (look out 90 days) Mar 23, 2016 10:20 AM Office Visit with Vanda Guerrero MD [facility] [place] ([facility] [place]) [address] [place] [address] [place] [address] documented in this encounter Plan of Treatment Not on filedocumented as of this encounter Visit Diagnoses Diagnosis Seasonal allergic rhinitis - Primary Allergic rhinitis, cause unspecified documented in this encounter Additional Health Concerns Assessment Noted Time PHQ-9 Depression Total Score: 12/23/2015 7:15 AM CD T documented as of this encounter Care Teams Hog Sticker Relationship Specialty Start Date End Date Vanda Guerrero MD PCP - General Internal Medicine 04/08/15 01/08/[address] [place] [address] [place] [id number] documented as of this encounter
--- OUTSIDE RECORDS SUMMARY | 2022-05-09 13:31 | XMS_ITS | Encounter Summary ---
:1965 Author Organization [place] Address [address] [place] [address]. [place] [address] Care Team Providers Name Role Phone Vanda Guerrero MD Primary Care Provider [phone] Encounter Details Date Type Department Care Team Description 12/03/2015 Orders Only [facility] Eag an Type 2 diabetes mellitus wit hout complication (H); [address] Abnormal finding on thyroid function test [place] [id number] Social History Tobacco Use Types Packs/Day Years [...] How often do you attend rastafari or hoahaoism Patient refused 08/08/2019 services? Do [...] Hospital Method Time Signature Thyroid Stim <1.0 [facility] Immunog Reference range: <=1.3 CLINICS Unit: TSI index JACLYN (Note) Test Performed by: [place] [id number] Beaming Machine Operator: Huseyin Dash II, M.D., Ph.D. Specimen Anatomical Collection Method Collection Time Receive d Time (Source) Location / / Volume Laterality Blood specimen 12/03/2015 8:50 AM 016 8:55 (specimen) CDT AM CDT Vanda Guerrero MD LAB - BLOOD ORDERABLES Performing Organization Address City/[facility]/ZIP Code Phon e Number [place] [id number] [place] [address] TSH with free T4 reflex (12/03/2015 8:50 AM CDT) athologist Signature TSH 3.93 0.40 - 4.00 [facility] mU/L [facility] Specimen Anatomical Collection Method Collection Time Receive d Time (Source) Location / / Volume Laterality Blood specimen 12/03/2015 8:50 AM 016 8:55 (specimen) CDT AM CDT Vanda Guerrero MD LAB - BLOOD ORDERABLES Performing Organization Address City/[facility]/ZIP Code Phon e Number [facility] [address] [place] [address] Lipid panel reflex to direct LDL (12/03/2015 8:50 AM CDT) P athologist Signature Cholesterol 152 <200 mg/dL [facility] Triglycerides 109 <150 mg/dL [facility] S [facility] Comment: Fasting specimen HDL Cholesterol 51 >49 mg/dL [facility] LDL Cholesterol Calculated 79 <100 mg/dL [facility] Comment: Desirable: <100 mg/dl Non HDL Cholesterol 101 <130 mg/dL [facility] Specimen Anatomical Collection Method Collection Time Receive d Time (Source) Location / / Volume Laterality Blood specimen 12/03/2015 8:50 AM 016 8:55 (specimen) CDT AM CDT Vanda Guerrero MD LAB - BLOOD ORDERABLES Performing Organization Address City/[facility]/ZIP Code Phon e Number [facility] [address] [place] [address] documented in this encounter Visit Diagnoses Diagnosis Type 2 diabetes mellitus without complic ation (H) Abnormal finding on thyroid function shirley t Nonspecific abnormal results of thyroid function study documented in this encounter Additional Health Concerns Assessment Noted Time PHQ-9 Depression Total Score: 13 07/09/2015 7:49 AM CS T documented as of this encounter Care Teams Entomology Teacher Relationship Specialty Start Date End Date Vanda Guerrero MD PCP - General Internal Medicine 04/08/15 01/08/19 5785 [facility] [place] [address] documented as of this encounter
--- OUTSIDE RECORDS SUMMARY | 2022-05-09 13:31 | XMS_ITS | Encounter Summary ---
:1965 Author Organization [place] Address [address] [place] [address] Care Team Providers Name Role Phone Vanda Guerrero MD Primary Care Provider [phone] Reason for Visit Reason Comments Cough Otalgia Encounter Details Date Type Department Care Team Description 07/08/2015 Office Visit [facility] Serum, Keyona Acute bro nchitis, unspecified organism (Primary Dx); Pino Panda MD Middle ear effusion, bilateral [address] [place] [place] [address] [place] [phone] 08 [place], [place] [address] Social History Tobacco Use [...] How often do you attend alevism or voodoo Patient refused 08/08/2019 services? Do [...] Comments Blood Pressure 100/68 07/08/2015 11:18 AM CUSTOMER CARE MANAGER Pulse 96 07/08/2015 11:18 AM CUSTOMER CARE MANAGER Temperature 37.2 ??C (98.9 ??F) 07/08/2015 11:18 AM CUSTOMER CARE MANAGER Respiratory Rate - - Oxygen Saturation 98% 07/08/2015 11:18 AM CUSTOMER CARE MANAGER Inhaled Oxygen Concentration - - Weight 80.1 kg (176 lb 8 oz) 07/08/2015 11:18 AM CUSTOMER CARE MANAGER Height 158.8 cm (5' 2.5) 07/08/2015 11:18 AM CUSTOMER CARE MANAGER Body Mass Index 31.77 07/08/2015 11:18 AM CUSTOMER CARE MANAGER documented in this encounter Patient Instructions Patient InstructionsSerum, Keyona Panda MD - 07/08/2015 12:01 PM CUSTOMER CARE MANAGER 1. Augmentin 1 pill twice a day for 10 days 2. Continue allergy medications 3. Continue ibuprofen as needed for pain/fevers 4. Follow-up if not improving or getting worse OMER CARE MANAGER documented in this encounter Progress Notes Keyona [...] list, Allergies, and Medical/Social/Surgical histories reviewed in [facility] andupdated as appropriate. OBJECTIVE: BP 100/68 [...] as needed See Patient Instructions Keyona Sexton [facility] OMER CARE MANAGER documented in this encounter Nursing Notes Adele Winter - 07/08/2015 11:21 AM CST Chief Complaint [...] kg). BP completed using cuff size: yennifer WINTER SMA OMER CARE MANAGER documented in this encounter Plan of Treatment Not on filedocumented as of this encounter Visit Diagnoses Diagnosis Acute bronchitis, unspecified organism - Primary Middle ear effusion, bilateral documented in this encounter Additional Health Concerns Assessment Noted Time PHQ-9 Depression Total Score: 13 07/09/2015 7:49 AM CS T documented as of this encounter Care Teams Account Group Supervisor Relationship Specialty Start Date End Date Vanda Guerrero MD PCP - General Internal Medicine 04/08/15 01/08/19 [address] [facility] [place] [address] documented as of this encounter
--- OUTSIDE RECORDS SUMMARY | 2022-05-09 13:31 | XMS_ITS | Encounter Summary ---
:1965 Author Organization [place] Address [address] [place] [address] Care Team Providers Name Role Phone Vanda Guerrero MD Primary Care Provider [phone] Reason for Visit (Routine) - Closed Specialty Diagnoses / Procedures Referred By Contact Refer red To Contact Radiology / Radiology. Diagnoses [facility] Procedures MA DIAGNOSTIC DIGITAL BILAT [address], [address] [place] [address] Phone: Fax: Referral ID Status Reason Start Date Expiration Date Visits Requ ested Visits Authorized [id number] Closed 09/29/2015 09/28/2016 1 1 Encounter Details Date Type Department Care Team Description 09/30/2015 Hospital Encounter [facility] Vanda Escalante reast pain, left [facility] MD Cat[place] [address] [place] [address] [address], [address] [place] [address] [place], [place] [phone] [address] (Work) [phone] Social History Tobacco Use Types Packs/Day Years [...] How often do you attend adventist or pentecostalism Patient refused 08/08/2019 services? Do you belong to any clubs or organizations such as No 08/08/2019 adventist groups, FRESSs, fraNanoAntibiotics or athletic groups, or school groups? How [...] 2 Fibromyalgia times daily fluticasone (FLONASE) 50 [place] 1-2 sprays 3 Package 3 10/0605/03/2016 MCG/ACT [...] documented as of this encounter Care Teams Raisin Separator Operator Relationship Specialty Start Date End Date Vanda Guerrero MD PCP - General Internal Medicine 04/08/15 01/08/19 5[address] [facility] [place] [address] documented as of this encounter
--- OUTSIDE RECORDS SUMMARY | 2022-05-09 13:31 | XMS_ITS | Encounter Summary ---
:1965 Author Organization [facility] Address [address] [place] [address] Care Team Providers Name Role Phone Vanda Guerrero MD Primary Care Provider [phone] Reason for Visit Reason Onset Date Comments Refill Request 12/23/2015 TOPIRAMATE 50MG Refill Request 12/23/2015 OMEPRAZOLE 20MG Encounter Details Date Type Department Care Team Description 12/23/2015 Refill [facility] Vanda Lal, Refill Request 1440 BeliefNetworksirina Bass MD (TOPIRAMATE 50MG); [place] [address] [facility]9 [facility] Refill Request [phone] NASIR ANDRE (OMEPRAZOLE 20MG) [place] [address] [...] How often do you attend shinto or congregation Patient refused 08/08/2019 services? Do [...] refills: PRN Last Office Visit with [facility] or Health prescribing provider: 12/22/2015 BP Readings from Last 3 Encounters: 12/22/15 110/76 11/01/15 114/66 09/29/15 114/68 CREATININE Date Value Ref Range Status 09/30/2015 0.67 0.52 - 1.04 mg/dL Final OMEPRAZOLE 20MG Last Written Prescription Date: 10/06/2014 Last Fill Quantity: 90, # refills: PRN Last Office Visit with [facility] or [employer] prescribing provider: 12/22/2015 documented in this encounter [...] documented as of this encounter Care Teams Physical Security Engineer Relationship Specialty Start Date End Date Vanda Guerrero MD PCP - General Internal Medicine 04/08/15 01/08/19 2942 [facility] [place] [address] documented as of this encounter
--- OUTSIDE RECORDS SUMMARY | 2022-05-09 13:31 | XMS_ITS | Encounter Summary ---
:1965 Author Organization [place] Address [address] [place] [address]. [place] [address] Care Team Providers Name Role Phone Vanda Guerrero MD Primary Care Provider [phone] Reason for Visit Reason Onset Date Comments Refill Request 11/05/2015 simvastatin, duloxet ine, citalopram Encounter Details Date Type Department Care Team Description 11/05/2015 Refill [facility] Vanda Lal, Refill Request 1440 [place] [address] [place] [address] duloxetine, citalopram) [phone] [facility] [place] [address] (Wo rk) Social History Tobacco Use Types [...] How often do you attend pentecostalism or catholic Patient refused 08/08/2019 services? Do [...] encounter Miscellaneous Notes Telephone Encounter - Kallie Misrha RN - 11/09/2015 9:42 AM CDT Pharmacy calling to follow up on refill requests. They also sent Citalopram & Duloxetine. Citalopram discontinued in error, patient has been filling this regularly per pharmacy. Prescription approved per [facility] Refill Protocol. CITALOPRAM Last [...] with [facility], [facility] or [facility] prescribing provider: 11/01/2015 Next 5 appointments (look out 90 days) Dec 22, 2015 9:00 AM Office Visit with Vanda Guerrero MD [facility] [address] [place] [address] [place] HERNANDEZ [phone] CHOL 153 08/10/2014 HDL 61 08/10/2014 LDL [...] documented as of this encounter Care Teams Christmas Tree Contractor Relationship Specialty Start Date End Date Vanda Guerrero MD PCP - General Internal Medicine 04/08/15 01/08/[address] [facility] [address] [place], [place] [address] documented as of this encounter
--- OUTSIDE RECORDS SUMMARY | 2022-05-09 13:31 | XMS_ITS | Encounter Summary ---
:1965 Author Organization [place] Address [address] [place] [address]. [place] [address] Care Team Providers Name Role Phone Vanda Guerrero MD Primary Care Provider [phone] Reason for Visit Reason Comments RECHECK Encounter Details Date Type Department Care Team Description 11/01/2015 Office Visit [facility] Vanda Guerrero History of lumbar fusion (Primary Dx); Pino Toribio MD History of fusion of cervical spine; [address] [facility] Recurrent major depressive d isorder, remission status unspecified (H); [place] [address] [facility] Chronic left-sided low back pain with le ft-sided sciatica; [phone] [place] [address] Thyroid function test abnormal [phone] (Wo rk) Social History Tobacco Use Types [...] How often do you attend episcopal or yarsani Patient refused 08/08/2019 services? Do [...] list, Allergies, and Medical/Social/Surgical histories reviewed in [facility] andupdated as appropriate. ROS: Constitutional, [...] a visit 6-8 weeks Vanda Guerrero MD [facility] documented in this encounter [...] documented as of this encounter Care Teams Warehouse Specialist Relationship Specialty Start Date End Date Vanda Guerrero MD PCP - General Internal Medicine 04/08/15 01/08/[address] [facility] [address] [place], [place] [address] documented as of this encounter
--- OUTSIDE RECORDS SUMMARY | 2022-05-09 13:32 | XMS_ITS | Encounter Summary ---
:1965 Author Organization [place] Address [address] [facility] [place] [address] Care Team Providers Name Role Phone Selma Good APRN ORDER SELECTOR Primary Care Provider Reason for Visit Reason Onset Date Comments Procedure 01/08/2015 Encounter Details Date Type Department Care Team Description 01/08/2015 Telephone [facility] Pain Pain Management Pr nela, Procedure Management Center [facility] [address] [facility] [address] [place], [place] [phone] Social History Tobacco Use [...] be done at which interventional clinic site? [facility] Procedure ordered by Dr. Main Procedure ordered? [...] or notify pt of denial. Is an hourly sign language interpreter needed? No Patient has a drive [...] ?? If so, was it done at [place]? Yes ?? If not, where was it done? Was the MRI done w/in the last 3 years? Yes If MRI was not done at [place], [facility] or [facility] do NOT schedule. Route to nursing. [...] the patient have any questions? Halie Siddiqui [facility] Telephone Encounter - Veronica Porter RN - 01/08/2015 3:46 PM CDT Routing to front end ui developer to schedule patient for LESI vs other lumbar procedure TBD by pain specialist.Please include in the visit note that order is for lumbar injection first, then cervical, and that patient has history of spine surgery. Ver[facility] Telephone Encounter - Yvonne Cedillo - 01/08/2015 2:02 PM CDT Procedure or injection only (pt will be contacted within 24 hrs to schedule): Lumbar injections thencervical. Please advise on scheduling. Yvonne Cedillo Merchandise Appraiser [facility] documented in this encounter Plan of Treatment Not on filedocumented as of this encounter Visit Diagnoses Not on filedocumented in this encounter Care Teams Power Regulator Relationship Specialty Start Date End Date Danilo-Selma Mccoy, SEAN ORDER SELECTOR PCP - General 04/09/08 04/07/15 [address] [facility] [place] [address] documented as of this encounter
--- OUTSIDE RECORDS SUMMARY | 2022-05-09 13:32 | XMS_ITS | Encounter Summary ---
:1965 Author Organization [place] Address [address] [place] [address]. [place] [address] Care Team Providers Name Role Phone Vanda Guerrero MD Primary Care Provider [phone] Reason for Visit Reason Onset Date Comments Refill Request 06/08/2015 METFORMIN HCL 500MG Encounter Details Date Type Department Care Team Description 06/08/2015 Refill [facility] Vanda Lal, Refill Request 1440 Priscilla Bass MD (METFORMIN HCL 500MG) [place] [address] [address] [facility] [phone] [facility] [place] [address] (Wo [...] How often do you attend muslim or nondenominational Patient refused 08/08/2019 services? Do [...] 06/10/2015 11:53 AM CST Prescription approved per [facility] Refill Protocol. Abigail Burciaga RN F DEVELOPMENT EDUCATOR Telephone Encounter - Eri Middleton - 06/08/2015 4:46 PM CST METFORMIN HCL 500MG Last Written Prescription Date: 10/06/2014 Last Fill Quantity: 180, # refills: 1 Last Office Visit with [facility] primary care provider: 04/08/2015 [...] 10/27/2013 3.8 3.4 - 5.3 mmol/L Final F DEVELOPMENT EDUCATOR documented in this encounter Plan of Treatment Not on filedocumented as of this encounter Visit Diagnoses Diagnosis Type 2 diabetes mellitus without complic ation - Primary documented in this encounter Care Teams Proof Passer Relationship Specialty Start Date End Date Vanda Guerrero MD PCP - General Internal Medicine 04/08/15 01/08/19 4212 [facility] [place] [address] documented as of this encounter
--- OUTSIDE RECORDS SUMMARY | 2022-05-09 13:32 | XMS_ITS | Encounter Summary ---
:1965 Author Organization [place] Address [address] [place] [address] Care Team Providers Name Role Phone Vanda Guerrero MD Primary Care Provider [phone] Reason for Visit (Routine) - Closed Specialty Diagnoses / Procedures Referred By Contact Refer red To Contact Radiology / Radiology. Diagnoses prev [facility] Procedures MA SCREENING DIGITAL BILATERAL [address], [address] [place] [address] Phone: Fax: Referral ID Status Reason Start Date Expiration Date Visits Requ ested Visits Authorized [id number] Closed 04/15/2015 04/14/2016 1 1 Encounter Details Date Type Department Care Team Description 04/16/2015 Hospital Encounter [facility] Vanda Guerrero for screening [facility] MD [facility] mammogram Center [address] [place] [address] [address], [address] [place] [address] [place], [place] [phone] [address] (Work) [phone] Social History Tobacco Use Types Packs/Day Years [...] How often do you attend episcopal or mu-ism Patient refused 08/08/2019 services? Do you belong to any clubs or organizations such as No 08/08/2019 episcopal groups, [facility], fraOneSpot or athletic groups, or school groups? How [...] 2 Fibromyalgia times daily fluticasone (FLONASE) 50 [place] 1-2 sprays 3 Package 3 10/0605/03/2016 MCG/ACT [...] screening R esults for this DIGITAL BILATERAL CLOUD SOFTWARE ENGINEER mammogram procedure are in the results section. documented in this encounter Results MA Screening Digital Bilateral (04/16/2015 11:13 AM CLOUD SOFTWARE ENGINEER) Anatomical Region Laterality Modality Breast Bilateral Mammography Specimen (Source) Anatomical Location Collection Method / Collectio n Time Received Time / Laterality Volume Impressions 04/16/2015 12:41 PM CLOUD SOFTWARE ENGINEER IMPRESSION: BI-RADS CATEGORY: 1 - ??NEGATIVE. RECOMMENDED FOLLOW-UP: Annual Mammograph y Exam results letter mailed to patient. BRIGIDO RDZ MD Narrative 04/16/2015 12:41 PM CLOUD SOFTWARE ENGINEER SCREENING MAMMOGRAM, BILATERAL, DIGITAL w/CAD - 04/16/2015 [...] mammogram documented in this encounter Care Teams Maori Liaison Adviser Relationship Specialty Start Date End Date Vanda Guerrero MD PCP - General Internal Medicine 04/08/15 01/08/19 4363 [facility] [place] [address] documented as of this encounter
--- OUTSIDE RECORDS SUMMARY | 2022-05-09 13:32 | XMS_ITS | Encounter Summary ---
:1965 Author Organization [place] Address [address] [place] [address] Care Team Providers Name Role Phone Selma Good APRN FLATWORK ASSEMBLER Primary Care Provider Encounter Details Date Type Department Care Team Description 01/11/2015 Orders Only [facility] Eag an Routine general medical 1440 [facility] [place] [address] care facility [phone] Social History Tobacco Use Types Packs/Day Years [...] How often do you attend judaism or denominational Patient refused 08/08/2019 services? Do [...] logist Time Signature Occult Blood Negative NEG [facility] FIT [facility] Specimen Anatomical Collection Method Collection Time Receive d Time (Source) Location / / Volume Laterality Stool specimen 01/11/2015 9:00 AM 015 (specimen) CDT 10:42 AM CDT Selma Good APRN FLATWORK ASSEMBLER LAB - STOOLS ORDERABLES Performing Organization Address City/State/ZIP Code Phon e Number [facility] [address] [place] [address] [facility] documented in this encounter Visit Diagnoses Diagnosis Routine general medical examination at a health care facility documented in this encounter Care Teams Machine Oiler Relationship Specialty Start Date End Date Danilo-Selma Mccoy, STRAP BUCKLER FLATWORK ASSEMBLER PCP - General 04/09/08 04/07/[address] [facility] [address] [place], [place] [address] documented as of this encounter
--- OUTSIDE RECORDS SUMMARY | 2022-05-09 13:32 | XMS_ITS | Encounter Summary ---
:1965 Author Organization [place] Address [address] [place] [address]. [place] [address] Care Team Providers Name Role Phone Selma Good APRN GRAIN CLEANER Primary Care Provider [phone] Encounter Details Date Type Department Care Team Description 03/24/2015 Orders Only [facility] Florentino, Type 2 diab etes mellitus without complication (H) (Primary Dx); Pino Angeles APRN Obesity [address] GRAIN CLEANER [place] [address] [facility] [phone] [facility] [place] [address] Social History Tobacco [...] unspecified documented in this encounter Care Teams Factory Helper Relationship Specialty Start Date End Date Danilo-Selma Mccoy, PRN PHYSICAL THERAPIST GRAIN CLEANER PCP - General 04/09/08 04/07/[address] [facility] [address] [place], [place] [address] documented as of this encounter
--- OUTSIDE RECORDS SUMMARY | 2022-05-09 13:32 | XMS_ITS | Encounter Summary ---
:1965 Author Organization [place] Address [address] [place] [address] Care Team Providers Name Role Phone Selma Good APRN, CNP Primary Care Provider Reason for Visit Reason Onset Date Comments Refill Request 12/22/2014 LORATADINE-D 24 HOUR TABLET Encounter Details Date Type Department Care Team Description 12/22/2014 Refill [facility] Selma Anthony Refill Request 1440 [employer] SEAN Angeles CNP (LORATADINE-D 24 HOUR [place] [phone] 68[address] [facility] TABLET) [phone] [facility] [place] [address] [...] How often do you attend zoroastrianism or episcopal Patient refused 08/08/2019 services? Do [...] CDT Prescription printed, signed and put on MA/CLIENT CUSTOMER MANAGER's desk. Thanks! Telephone Encounter - Marisa Matthew - 12/22/2014 4:42 PM CDT LORATADINE-D 24 HOUR TABLET Last Written Prescription Date: 12/17/2013 Last Fill Quantity: 90, # refills: PRN Last Office [place] with [facility] [place] care provider: 12/09/2014 Future Office visit: Routing refill request to provider for review/approval because: Drug not on the [facility] ref[place] or controlled substance documented in this encounter Plan of Treatment Not on filedocumented as of this encounter Visit Diagnoses Diagnosis Seasonal allergic rhinitis - Primary Allergic rhinitis, cause unspecified documented in this encounter Care Teams Barrel Marker Relationship Specialty Start Date End Date Selma Good APRN LEGAL COLLECTOR PCP - General 04/09/08 04/07/[address] [facility] [address] [place], [place] [address] documented as of this encounter
--- OUTSIDE RECORDS SUMMARY | 2022-05-09 13:32 | XMS_ITS | Encounter Summary ---
:1965 Author Organization [place] Address [address] [facility] [place] [address] Care Team Providers Name Role Phone Selma Good APRN FLAT CUTTER Primary Care Provider [phone] Reason for Visit Reason Onset Date Comments Patient/info Update 01/19/2015 Post LESI Encounter Details Date Type Department Care Team Description 01/19/[address] [facility] Pain Teagan Solares, Patient/info Update Management Center DO (Post LESI) [address] [place] [address] PAIN [place] [address] [facility] [place], [place] [address] [facility] [place] [address] [place] [address] [phone] Social History Tobacco Use Types Packs/Day Years [...] How often do you attend judaism or spiritism Patient refused 08/08/2019 services? Do [...] pt should call the nurse line at [phone]. Lashae Stack(R) documented in this encounter Plan of Treatment Not on filedocumented as of this encounter Visit Diagnoses Not on filedocumented in this encounter Care Teams Lithographic Press Feeder Relationship Specialty Start Date End Date Selma Good APRN FLAT CUTTER PCP - General 04/09/08 04/07/[address] [facility] [place] [address] documented as of this encounter
--- OUTSIDE RECORDS SUMMARY | 2022-05-09 13:32 | XMS_ITS | Encounter Summary ---
:1965 Author Organization [place] Address [address] [place] [address]. [place] [address] Care Team Providers Name Role Phone Selma Good APRN FINANCIAL SERVICES EDUCATION CONSULTANT Primary Care Provider [phone] Encounter Details Date Type Department Care Team Description 01/26/2015 Radiant Appointment [facility] Teagan Solares DDD (degenerative Clinic [facility] disc disease), Pain Management [facility] cervical [address] [place] [facility] [address] [place] [address] [place], [place] [phone] [address] (Work) [phone] Social History Tobacco Use Types Packs/Day Years [...] How often do you attend religious or restoration Patient refused 08/08/2019 services? Do [...] be read by a radiologist or a [place] non-radiologis t provider. Procedure Note Lashae Alexis - 01/26/2015Formatt ing of this note might be different from the original. This exam was marked as non-reportable b ecause it will not be read by a radiologist or a [place] non-radiologist provider. Teagan Solares DO [facility]NOST[facility] [...] dose documented in this encounter Care Teams Burial Vault Maker Relationship Specialty Start Date End Date Danilo-Selma Mccoy, JOURNALIST FINANCIAL SERVICES EDUCATION CONSULTANT PCP - General 04/09/08 04/07/15 [address] [facility] [address] [place], [place] [address] documented as of this encounter
--- OUTSIDE RECORDS SUMMARY | 2022-05-09 13:32 | XMS_ITS | Encounter Summary ---
:1965 Author Organization [place] Address [facility] [place] [address] Care Team Providers Name Role Phone Selma Good APRN ADMINISTRATIVE INTERN Primary Care Provider [phone] Reason for Visit Reason Onset Date Comments Referral 10/21/2014 New Dual Encounter Details Date Type Department Care Team Description 10/21/[address] [facility] Pain Pain Management Re ferral (New Dual ) Management Center Program, [place] [address] [place] [address] Social History Tobacco Use Types Packs/Day [...] How often do you attend bahai or cheondoism Patient refused 08/08/2019 services? Do [...] schedule new dual with patient. Halie Siddiqui Senior Trial Attorney Pain Management Clinic documented in this encounter Plan of Treatment Not on filedocumented as of this encounter Visit Diagnoses Not on filedocumented in this encounter Care Teams Oil Prospecting Observer Relationship Specialty Start Date End Date Selma Good APRN ADMINISTRATIVE INTERN PCP - General 04/09/08 04/07/15 [address] [facility] [place] [address] documented as of this encounter
--- OUTSIDE RECORDS SUMMARY | 2022-05-09 13:32 | XMS_ITS | Encounter Summary ---
:1965 Author Organization [place] Address [address] [place] [address] Care Team Providers Name Role Phone Selma Good APRN PLASTIC MAKER Primary Care Provider [phone] Reason for Visit Reason Comments Pain caudal TRACE Encounter Details Date Type Department Care Team Description 01/12/2015 Radiology [facility] Teagan Solares Lumbosacra l spondylosis without myelopathy (Primary Dx); Injection Office Pain Management DO Noreen Lumbar radiculopathy Visit [address] [facility] [address] [place] [address] [place], [place] [phone] [address] (Work) [phone] Social History Tobacco Use Types Packs/Day Years [...] How often do you attend synagogue or mosque Patient refused 08/08/2019 services? Do [...] Santana RN - 01/12/2015 8:40 AM CDT [facility] Procedure Discharge Instructions Nurse line: [phone] Appt line: [phone] Teagan Solares You had [...] center nursing line during work hours at [phone] or diamond die driller physician after hours at [phone]: -Fever over 100 degree F -Swelling, bleeding, redness, drainage, warmth at the injection site -Progressive weakness or numbness on your legs or arms -Loss of bowel or bladder function -Unusual headache that is not relieved by Tylenol -Unusual new onset of pain that is not improving documented in this encounter Progress Notes Teagan Solares DO - 01/12/2015 9:20 AM CDT [facility] - Procedure Note Date of Service: 01/12/15 Procedure performed: caudal epidural steroid injection with fluoroscopic guidance Diagnosis: Lumbar spondylosis; Lumbar radiculitis/radiculopathy Public Health Dentist: Teagan Solares DO Anesthesia: none Indications: Megan [...] the patient was advised to contact the [facility] for any of the [...] and for post-procedure evaluation. Teagan Solares DO [facility] documented in this encounter Nursing [...] patient home? Yes Signature/Title: SHALA SANTANA RN Steel Construction Worker [facility] [place] Shala Santana RN - 01/12/2015 8:27 AM [...] active infection? NO Does patient have a seasonal driver? 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 Not Applicable Are the vital signs normal? Yes ANDREW Mack, RN-BC Steel Construction Worker [facility] [place] documented in this encounter Plan of Treatment Not on filedocumented as of this encounter Visit Diagnoses Diagnosis Lumbosacral spondylosis without myelopat hy - Primary Lumbar radiculopathy Thoracic or lumbosacral neuritis or radi culitis, unspecified documented in this encounter Care Teams Work Measurement Engineer Relationship Specialty Start Date End Date Danilo-Selma Mccoy APRN PLASTIC MAKER PCP - General 04/09/08 04/07/15 [address] [facility] [place] [address] documented as of this encounter
--- OUTSIDE RECORDS SUMMARY | 2022-05-09 13:32 | XMS_ITS | Encounter Summary ---
:1965 Author Organization [place] Address [facility] [place] [address] Care Team Providers Name Role Phone Selma Good APRN ELECTRICAL DEVELOPMENT ENGINEER Primary Care Provider Reason for Referral Consultation - Closed Specialty Diagnoses / Procedures Referred By Contact Refer red To Contact Diagnoses Lumbar radiculopathy Cervicalgia History of lumbar fusion History of fusion of cervical spine Chronic left SI joint pain Vanda Guerrero MD [facility] [address] [place] [address] CL-SH- REFERRAL (OP) [address] [place] [address] [place] [address] Phone: [phone] Fax: Referral ID Status Reason Start Date Expiration Date Visits Requ ested Visits Authorized [id number] Closed 12/09/2014 12/09/2015 1 1 Reason for Visit Reason Comments Musculoskeletal Problem left leg pain , neck pain Encounter Details Date Type Department Care Team Description 12/09/2014 Office Visit [facility] Vanda Guerrero Lumbar r adiculopathy (Primary Dx); Pino Toribio MD Cervicalgia; [address] [place] [address] History of lumbar fusion; [place] [address] [facility] History of fusion of cervical spine; [phone] [place] [address] Chronic left SI joint pain [phone] (Wo rk) Social History Tobacco Use Types [...] visit with our medical spine specialists in [place] documented in this encounter Progress Notes Vanda [...] MEDICAL CENTER andupdated as appropriate. OBJECTIVE: BP 106/70 mmHg [...] ASSESSMENT/PLAN: ICD-9-CM 1. Lumbar radiculopathy 724.4 ORTHO CAN PUSHER REFERRAL 2. Cervicalgia 723.1 ORTHO CAN PUSHER REFERRAL 3. History of lumbar fusion V45.89 ORTHO CAN PUSHER REFERRAL 4. History of fusion of cervical spine V45.4 ORTHO CAN PUSHER REFERRAL 5. Chronic left SI joint pain 724.6 ORTHO CAN PUSHER REFERRAL 338.29 Recommended a consultation with field identification specialist as patient has had complicated spine [...] of the above issues. Vanda Guerrero MD [facility] documented in this encounter Nursing Notes [...] sacrum documented in this encounter Care Teams Pararescue Craftsman Relationship Specialty Start Date End Date Selma Good, SEAN ELECTRICAL DEVELOPMENT ENGINEER PCP - General 04/09/08 04/07/15 [address] [facility] [place] [address] documented as of this encounter
--- OUTSIDE RECORDS SUMMARY | 2022-05-09 13:32 | XMS_ITS | Encounter Summary ---
:1965 Author Organization [place] Address [address] [place] [address] Care Team Providers Name Role Phone Selma Good APRN ACCOUNT RECEIVABLE CLERK Primary Care Provider [phone] Reason for Visit Reason Onset Date Comments Refill Request 01/25/2015 OUNE TOUCH ULTRA SATISH T STRIPS Encounter Details Date Type Department Care Team Description 01/25/2015 Refill [facility] Eag Selma Anthony Refill Request (OUNE 1440 [facility] [place] ACCOUNT RECEIVABLE CLERK TOUCH ULTRA TEST STRIPS) [place] [address] [place] [address] [facility] [place] [address] (Wo rk) Social [...] How often do you attend tenriism or mandaen Patient refused 08/08/2019 services? Do [...] uncontrolled documented in this encounter Care Teams Toll Lineman Relationship Specialty Start Date End Date Danilo-Selma Mccoy, CORE FILER ACCOUNT RECEIVABLE CLERK PCP - General 04/09/08 04/07/15 [address] [facility] [place] [address] documented as of this encounter
--- OUTSIDE RECORDS SUMMARY | 2022-05-09 13:32 | XMS_ITS | Encounter Summary ---
:1965 Author Organization [place] Address [address] [place] [address]. [place] [address] Care Team Providers Name Role Phone Selma Good APRN QUIRK SANDER Primary Care Provider [phone] Encounter Details Date Type Department Care Team Description 01/12/2015 Radiant Appointment [facility] Teagan Solares DDD (degenerative Clinic [facility] disc disease), Pain Management [facility] lumbar [address] [place] [address] [facility] [address] [place] [address] [place], [place] [phone] [address] (Work) [phone] Social History Tobacco Use Types Packs/Day Years [...] How often do you attend faith or faith Patient refused 08/08/2019 services? Do [...] be read by a radiologist or a [place] non-radiologis t provider. Procedure Note Lashae Alexis - 01/12/2015Formatt ing of this note might be different from the original. This exam was marked as non-reportable b ecause it will not be read by a radiologist or a [place] non-radiologist provider. Teagan Solares DO IMG DIAGNOSTIC [...] dose documented in this encounter Care Teams Rn Long Term Care Relationship Specialty Start Date End Date Selma Good, WATER TAXI CAPTAIN QUIRK SANDER PCP - General 04/09/08 04/07/15 [address] [facility] [address] [place], [place] [address] documented as of this encounter
--- OUTSIDE RECORDS SUMMARY | 2022-05-09 13:32 | XMS_ITS | Encounter Summary ---
:1965 Author Organization [place] Address [address] [facility] [place] [address] Care Team Providers Name Role Phone Selma Good APRN TIRE MOLD ENGRAVER Primary Care Provider Reason for Visit Reason Onset Date Comments Patient/info Update 02/02/2015 Post FABIAN Encounter Details Date Type Department Care Team Description 02/02/[address] [facility] Pain Teagan Solares, Patient/info Update Management Center DO (Post FABIAN) [address] [place] [address] PA[address] [place] [address] [place], [place] [address] [facility] [place] [address] [place] [address] [phone] Social History Tobacco Use Types Packs/Day Years [...] How often do you attend samaritan or samaritan Patient refused 08/08/2019 services? Do [...] pt should call the nurse line at [phone]. Lashae Stack(R) documented in this encounter Plan of Treatment Not on filedocumented as of this encounter Visit Diagnoses Not on filedocumented in this encounter Care Teams Sample Processor Relationship Specialty Start Date End Date Selma Good APRN TIRE MOLD ENGRAVER PCP - General 04/09/08 04/07/15 [address] [facility] [place] [address] documented as of this encounter
--- OUTSIDE RECORDS SUMMARY | 2022-05-09 13:32 | XMS_ITS | Encounter Summary ---
:1965 Author Organization [place] Address [address] [place] [address] Care Team Providers Name Role Phone Selma Good APRN, CNP Primary Care Provider [phone] Reason for Referral - Closed Specialty Diagnoses / Procedures Referred By Contact Refer red To Contact Diagnoses Degenerative disc disease Rosalia Main APRN CNP [facility] [address] [facility] [address] [place] [address] Referral ID Status Reason Start Date Expiration Date Visits Requ ested Visits Authorized [id number] Closed 01/08/2015 01/08/2016 1 1 Encounter Details Date Type Department Care Team Description 01/08/2015 Orders Only [facility] Rosalia Main disc Neurosurgery Clinic SEAN [place] P disease (Primary Dx) Bozean [facility] [address] [facility] [address] [facility] [address] [place], [place] [address] [phone] Social History Tobacco Use Types Packs/Day Years [...] How often do you attend scientologist or zoroastrianism Patient refused 08/08/2019 services? Do [...] Name Type Priority Associated Diagnoses Order S [facility] Referral Routine Degenerative disc Ordered: 01/08/2015 (BRYN MAWR) REFERRAL disease documented as of this encounter Visit Diagnoses Diagnosis Degenerative disc disease - Primary Degeneration of intervertebral disc, sit e unspecified documented in this encounter Care Teams Fig Caprifier Relationship Specialty Start Date End Date Selma Good APRN PITTING MACHINE OPERATOR PCP - General 04/09/08 04/07/15 [address] [facility] [place] [address] documented as of this encounter
--- OUTSIDE RECORDS SUMMARY | 2022-05-09 13:32 | XMS_ITS | Encounter Summary ---
:1965 Author Organization [place] Address On license of [facility]. [address] Care Team Providers Name Role Phone Selma Good APRN PHOTO CHECKER AND ASSEMBLER Primary Care Provider [phone] Reason for Visit (Routine) - Closed Specialty Diagnoses / Procedures Referred By Contact Refer red To Contact Radiology / Radiology. Diagnoses R#NA, BC, written order Sh Ct Scan Procedures CT LUMBAR SPINE WO [address] [place] [address] Phone: Referral ID Status Reason Start Date Expiration Date Visits Requ ested Visits Authorized [id number] Closed 01/01/2015 01/01/2016 1 1 Encounter Details Date Type Department Care Team Description 01/08/2015 Hospital Encounter [facility], [address] atus post lumbar [facility] SEAN [place] PHOTO CHECKER AND ASSEMBLER spinal fusion [address] [place] [address] ORTHOPEDICS [phone] [place] [address] Social History Tobacco Use Types Packs/Day Years [...] organizations such as No 08/08/2019 confucianism groups, [employer], [employer] or athletic groups, or school groups? [...] 2 times capsuleIndications: daily Fibromyalgia fluticasone (FLONASE) [place] 1-2 sprays into 3 Package 3 05/03/2016 [...] Region Laterality Modality Spine, SUBRAD CT MSK, [facility] CT SPINE Compu jayne Tomography [...] joint. ABRAHAM BAEZ MD Rosalia Main APRN PHOTO CHECKER AND ASSEMBLER IMG CT ORDERABLES documented in this encounter Visit Diagnoses Diagnosis Status post lumbar spinal fusion Arthrodesis status documented in this encounter Care Teams Drafter Castings Relationship Specialty Start Date End Date Danilo-Selma Mccoy APRN PHOTO CHECKER AND ASSEMBLER PCP - General 04/09/08 04/07/15 [address] [facility] [place] [address] documented as of this encounter
--- OUTSIDE RECORDS SUMMARY | 2022-05-09 13:32 | XMS_ITS | Encounter Summary ---
:1965 Author Organization [facility] Address [address] [place] [address] Care Team Providers Name Role Phone Selma Good APRN CASE MANAGEMENT SOCIAL WORKER Primary Care Provider Reason for Visit Reason Comments Neurologic Problem Neck/low back pain Encounter Details Date Type Department Care Team Description 12/29/2014 Office Visit [facility] Rosalia Main Status p ost lumbar spinal fusion (Primary Dx); Neurosurgery Clinic SEAN [place] CN P Status post cervical spinal fusion [facility] [address] [place] [address] [address] [place] [address] [address] [place], [place] [address] [phone] Social History Tobacco Use Types Packs/Day Years [...] How often do you attend presybeterian or religion Patient refused 08/08/2019 services? Do [...] 12/29/2014 10:[address] Raoul Danielson [facility] Neurosurgery Clinic Visit The following is a book salesman of a shared visit between Dr. 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 Smoking [...] Rosalia Main CNP [facility] [place] [address] Pager [phone] Anna Mayberry - 12/29/2014 10:29 AM CDT [...] at C3-C4. RUPERTO SWAN MD Rosalia Main PRINTING PRESS OPERATOR APPRENTICE CASE MANAGEMENT SOCIAL WORKER IMG CT ORDERABLES CT Lumbar Spine w/o Contrast (01/08/2015 12:36 PM CDT) Anatomical Region Laterality Modality Spine, SUBRAD CT MSK, [facility] CT SPINE Compu jayne [...] aortic calcification is noted. Procedure Note Sridevi Baze MD - 01/08/2015Formatt ing of this note [...] sacroiliac joint. ABRAHAM BAEZ MD Rosalia Main PRINTING PRESS OPERATOR APPRENTICE CASE MANAGEMENT SOCIAL WORKER IMG CT ORDERABLES documented in this encounter Visit Diagnoses Diagnosis Status post lumbar spinal fusion - Prima ry Arthrodesis status Status post cervical spinal fusion Arthrodesis status Status post lumbar spinal fusion Arthrodesis status Status post cervical spinal fusion Arthrodesis status documented in this encounter Care Teams Wealth Management Consultant Relationship Specialty Start Date End Date Danilo-Selma Mccoy APRN CASE MANAGEMENT SOCIAL WORKER PCP - General 04/09/08 04/07/[address] [facility] [place] [address] documented as of this encounter
--- OUTSIDE RECORDS SUMMARY | 2022-05-09 13:32 | XMS_ITS | Encounter Summary ---
:1965 Author Organization [place] Address [address] [place] [address]. [place] [address] Care Team Providers Name Role Phone Vanda Guerrero MD Primary Care Provider [phone] Reason for Visit Reason Onset Date Comments Refill Request 05/11/2015 SIMVASTATIN 20MG Encounter Details Date Type Department Care Team Description 05/11/2015 Refill [facility] Vanda Lal, Refill Request 1440 Priscilla Bass MD (SIMVASTATIN 20MG) [place] [address] [address] [facility] [phone] [facility] [place] [address] (Wo [...] How often do you attend synagogue or judaism Patient refused 08/08/2019 services? Do [...] Shante Joya RN - 05/11/2015 12:01 PM LIFT TEAM TECHNICIAN Prescription approved per [facility] Refill Protocol. RERE Franco Triage Nurse TEAM TECHNICIAN Telephone Encounter - Marisa Matthew - 05/11/2015 7:56 AM CST SIMVASTATIN 20MG Last Written Prescription Date: 10/06/2014 Last Fill Quantity: 90, # refills: 1 Last Office Visit with [facility] primary care provider: 04/08/2015 CHOL 153 08/10/2014 HDL 61 08/10/2014 LDL 76 08/10/2014 TRIG 79 08/10/2014 CHOLHDLRATIO 2.5 08/10/2014 TEAM TECHNICIAN documented in this encounter Plan of Treatment Not on filedocumented as of this encounter Visit Diagnoses Diagnosis Hyperlipidemia LDL goal <100 - Primary Other and unspecified hyperlipidemia documented in this encounter Care Teams Matching Machine Operator Relationship Specialty Start Date End Date Vanda Guerrero MD PCP - General Internal Medicine 04/08/15 01/08/19 [address] [facility] [place] [address] documented as of this encounter
--- OUTSIDE RECORDS SUMMARY | 2022-05-09 13:32 | XMS_ITS | Encounter Summary ---
:1965 Author Organization [facility] Address [address] [place] [address]. [place] [address] Care Team Providers Name Role Phone Selma Good APRN REAL ESTATE AGENT Primary Care Provider [phone] Reason for Visit Reason Onset Date Comments Procedure 01/13/2015 FABIAN Encounter Details Date Type Department Care Team Description 01/13/2015 Telephone [facility] Pain Pain Management Pr ocedure (FABIAN) Management [facility] Program, [address] [place] [address] Social History Tobacco Use Types [...] How often do you attend taoist or anabaptism Patient refused 08/08/2019 services? Do [...] done at which interventional clinic site? [facility] Procedure ordered by Dr. AGRAWAL [...] or notify pt of denial. Is an supervisor pigment making needed? No Patient has a drive home? [...] ?? If so, was it done at [facility]? Yes ?? If not, where was it done? Was the MRI done w/in the last 3 years? Yes If MRI was not done at [facility], [facility] do NOT schedule. Route [...] the patient have any questions? [facility] documented in this encounter Plan of Treatment Not on filedocumented as of this encounter Visit Diagnoses Not on filedocumented in this encounter Care Teams Architect Marine Relationship Specialty Start Date End Date Danilo-Selma Mccoy APRN REAL ESTATE AGENT PCP - General 04/09/08 04/07/15 [address] [facility] [place] [address] documented as of this encounter
--- OUTSIDE RECORDS SUMMARY | 2022-05-09 13:32 | XMS_ITS | Encounter Summary ---
:1965 Author Organization [place] Address [facility] [place] [address] Care Team Providers Name Role Phone Selma Good APRN MSW Primary Care Provider [phone] Reason for Visit (Routine) - Closed Specialty Diagnoses / Procedures Referred By Contact Refer red To Contact Radiology / Radiology. Diagnoses R#NA, BC, written order Sh Ct Scan Procedures CT CERVICAL SPINE WO [address] [place] [phone] Phone: Referral ID Status Reason Start Date Expiration Date Visits Requ ested Visits Authorized [id number] Closed 01/01/2015 01/01/2016 1 1 Encounter Details Date Type Department Care Team Description 01/08/2015 Hospital Encounter [facility] Main, [address] atus post cervical [facility] SEAN Angeles MSW spinal fusion [address] [place] [phone] ORTHOPEDICS [phone] [place] [address] Social History Tobacco Use Types Packs/Day Years [...] How often do you attend orthodoxy or orthodox Patient refused 08/08/2019 services? Do you belong to any clubs or organizations such as No 08/08/2019 orthodoxy groups, Maestros, [employer] or athletic groups, or school groups? [...] 2 times capsuleIndications: daily Fibromyalgia fluticasone (FLONASE) [place] 1-2 sprays into 3 Package 3 05/03/2016 [...] Spine, SUBRAD CT NEURO, SUBRAD CT NEURO, [facility] CT SPINE Computed Tomography Specimen (Source) [...] C3-C4. MARY SWAN MD [place] Main APRN MSW IMG CT ORDERABLES documented in this encounter Visit Diagnoses Diagnosis Status post cervical spinal fusion Arthrodesis status documented in this encounter Care Teams Astronautical Engineer Relationship Specialty Start Date End Date Selma Good APRN CNP PCP - General 04/09/08 04/07/15 [address] [facility] [address] [place], [place] [address] documented as of this encounter
--- OUTSIDE RECORDS SUMMARY | 2022-05-09 13:32 | XMS_ITS | Encounter Summary ---
:1965 Author Organization [place] Address [address] [place] [address] Care Team Providers Name Role Phone Selma Angelo APRN ENERGY ECONOMIST Primary Care Provider [phone] Reason for Visit Reason Comments Physical Encounter Details Date Type Department Care Team Description 10/06/2014 Office Visit [facility] Florentino, Routine gen eral medical examination at a health care facility (Primary Dx); Pino Angeles APRN Major depressive disorder, r ecurrent (H); [address] [facility] Type 2 diabetes, HbA1C goal < 7% (H); [place] [phone] [address] [facility] Hyperlipidemia LDL goal <100 ; [phone] [facility] Hypertension goal BP (blood pressure) < 130/80; [place] [address] Anxiety; [phone] GERD (gastroeso phageal reflux disease); (Work) Migraine headache; [phone] Fibromyalgia; (Fax) OME (otitis med ia with [...] How often do you attend voodoo or latter day Patient refused 08/08/2019 services? [...] recommended All Histories reviewed and updated in [facility]. ROS: C: NEGATIVE for fever, chills, [...] - fluticasone (FLONASE) 50 MCG/ACT nasal spray; [place] 1-2 sprays into both nostrils daily Dispense: [...] 2010 USDA's MyPlate Selma Angelo APRN CNP [facility] documented in this encounter Plan of Treatment [...] logist Time Signature Occult Blood Negative NEG [facility] [place] Specimen Anatomical Collection Method Collection Time Receive d Time (Source) Location / / Volume Laterality Stool specimen 01/11/2015 9:00 AM 015 (specimen) CDT 10:42 AM CDT Selma Angelo APRN ENERGY ECONOMIST LAB - STOOLS ORDERABLES Performing Organization Address City/State/ZIP Code Phon e Number [facility] [address] [place] [address] [facility] Creatinine (10/06/2014 10:18 AM CDT) P athologist Signature Creatinine 0.76 0.52 - 1.04 [facility] mg/dL [facility] GFR Estimate 79 >60 [facility] mL/min/1.7m [address] Comment: Non GFR Calc GFR Estimate If Black >90 >60 mL/min/1.7m2 [facility] GFR Calc HOSP ITAL Specimen Anatomical Collection Method Collection Time Receive d Time (Source) Location / / Volume Laterality Blood specimen 10/06/2014 10:18 5 (specimen) AM CDT 10:19 AM CDT Selma Angelo APRN, CNP LAB - BLOOD ORDERABLES Performing Organization Address City/State/ZIP Code Phon e Number [facility] [address] [place] [address] [facility] [address] [place] [address] Hemoglobin A1c (10/06/2014 10:18 AM CDT) P athologist Signature Hemoglobin A1C 5.8 4.3 - 6.0 [facility] [place] Specimen Anatomical Collection Method Collection Time Receive d Time (Source) Location / / Volume Laterality Blood specimen 10/06/2014 10:18 5 (specimen) AM CDT 10:19 AM CDT Selma Karthik Angelo APRN, CNP LAB - BLOOD ORDERABLES Performing Organization Address City/State/ZIP Code Phon e Number [facility] [address] [place] [address] HPV High Risk Types DNA Cervical (10/06/2014 9:50 AM CDT) Component Value Ref Test Analysis Performed At [facility] gist Range Method Time Signature HPV 16 DNA Negative NEG [facility] HPV 18 DNA Negative NEG [facility] Other HR HPV Negative NEG [facility] Final This patient's sample is negative for HP V DNA. ?? The [employer] Diagnosis Obstetricians and Gynecolog ists (ACOG) recommends any woman between 30-65 years OF [place] old who receives negative test results on both Pap cytology screening and HPV MEDICAL DNA testing should be rescreened in 5 years. [facility] (Note) [place] METHODOLOGY: ??The Alaina kandy 4800 system uses [...] and its performance characteristics determined by the [facility]. It has not been cleared or approved by the FDA. The laboratory is regulated under CLIA as qualified to perform high-complexity testing. This test is used for clinical purp oses. It should not be regarded as investigational or for research. Specimen Cervical Cells [facility] Specimen Anatomical Collection Method Collection Time Receive d Time (Source) Location / / Volume Laterality 10/06/2014 9:50 AM 5 CDT 11:50 AM CDT Selma Angelo APRN ENERGY ECONOMIST LAB - BLOOD ORDERABLES Performing Organization Address City/State/ZIP Code Phon e Number [facility] [address] [place] [address] [facility] (ABNORMAL) HPV High Risk Types DNA Cervical (10/06/2014 9:50 AM CDT) Component Value Ref Test Analysis Performed At [facility] Range Method Time Signature HPV 16 DNA Test canceled - [facility] Lab special order jeweler [place] error (A) [facility] HPV 18 DNA Test canceled - NEG [facility] Lab special order jeweler [place] error (A) [facility] Other HR HPV Test canceled - NEG [facility] Lab special order jeweler [place] error (A) [facility] Final Test canceled - Lab special order jeweler error [facility] Diagnosis (Note) OF [place] METHODOLOGY: ??The Alaina kandy 4800 system uses automated extraction, MEDICAL simultaneous amplification of HPV (L1 region) and beta-globi n, [facility] followed by ??real time detection of [...] and its performance characteristics determined by the [facility]. It has not been cleared or approved by the FDA. The laboratory is regulated under CLIA as qualified to perform high-complexity testing. This test is used for clinical purp oses. It should not be regarded as investigational or for research. Specimen Test canceled - Lab special order jeweler error [facility] Description CORRECTED ON 10/08 AT 1146: PREVIOUSLY REPORTED Cer vical Cells OF [facility] Specimen Anatomical Collection Method Collection Time Receive d Time (Source) Location / / Volume Laterality Cervical Cells 10/06/2014 9:50 AM 015 CDT 10:19 AM CDT Selma Angelo SURVEY METHODOLOGIST ENERGY ECONOMIST LAB - BLOOD ORDERABLES Performing Organization Address City/State/ZIP Code Phon e Number [facility] [address] [place], [place] [id number] [place] [address] PAP IMAGED THIN LAYER SCREEN (10/06/2014 12:00 AM CDT) Component Value Ref Test Analysis Performed At [facility] gist Range Method Time Signature PAP NIL COPATH Copath Report COPATH Patient Name: MEGAN CHOI MR#: [id number] Specimen #: [id number] Collected: 10/06/2014 Received: 10/06/2014 Reported: 10/07/2014 13:33 [...] DOMENICO Winslow (ASCP) Processed and screened at [facility] CLINICAL HISTORY: Previous normal pap Date of Last Pap: 05/05/2011, Papanicolaou Test Limitations: ??Cervical cytology is a scre ening test with limited sensitivity; regular screening is critical for cancer prevention; Pap tests are primarily effective for the diagnosis/prevention of squamous cell carcinoma, not adenoca rcinomas or other cancers. TESTING LAB LOCATION: [facility] [address] [place], [place] ??[address] COLLECTION SITE: Client: ??[facility] Location: [facility] (R) Specimen (Source) [...] left documented in this encounter Care Teams Gang Investigator Relationship Specialty Start Date End Date Selma Angelo APRN ENERGY ECONOMIST PCP - General 04/09/08 04/07/15 [address] [facility] [place] [address] documented as of this encounter
--- OUTSIDE RECORDS SUMMARY | 2022-05-09 13:32 | XMS_ITS | Encounter Summary ---
:1965 Author Organization [place] Address [address] [place] [address] Care Team Providers Name Role Phone Selma Good APRN BAIT PAINTER Primary Care Provider [phone] Reason for Visit Reason Onset Date Comments Other 01/08/2015 Encounter Details Date Type Department Care Team Description 01/08/2015 Telephone [facility] Neurosurgery [place], Angella Angeles, Other Clinic [place] GRADE TEACHER BAIT PAINTER [address] [facility] OR[address]EDICS [address] [place] [address] [address] [place], [place] [address] (Wo rk) Social History [...] How often do you attend religion or scientology Patient refused 08/08/2019 services? Do [...] and lumbar spine. Recommend injection therapy. Referredto [facility]. documented in this encounter Plan of Treatment Not on filedocumented as of this encounter Visit Diagnoses Not on filedocumented in this encounter Care Teams Mission Worker Relationship Specialty Start Date End Date Selma Good APRN CNP PCP - General 04/09/08 04/07/[address] [facility] [address] [place], [place] [address] documented as of this encounter
--- OUTSIDE RECORDS SUMMARY | 2022-05-09 13:32 | XMS_ITS | Encounter Summary ---
:1965 Author Organization [facility] Address [address] [place] [address]. [place] [address] Care Team Providers Name Role Phone Selma Good APRN CYLINDER DIE MACHINE OPERATOR Primary Care Provider [phone] Reason for Visit Reason Comments Pain FABIAN for Pain Management Encounter Details Date Type Department Care Team Description 01/26/2015 Radiology [facility] SolaresTeagan german Cervical s pondylosis without myelopathy (Primary Dx); Injection Office Pain Management DO Noreen Cervical radiculopathy Visit [address] [address] [place] [address] [place], [place] [phone] [address] (Work) [phone] Social History Tobacco Use Types Packs/Day Years [...] How often do you attend yazidism or orthodox Patient refused 08/08/2019 services? Do [...] Lew CMA - 01/26/2015 9:11 AM CDT [facility] Procedure Discharge Instruction Nurse line #:[phone] Appointment line #; [phone] Teagan Solares You had [...] medication, which will hopefully give you the shelter relief, may take up to 14 days [...] center nursing line during work hours at [phone] or operations intelligence superintendent physician after hours at [phone] (choose option #1): o Fever over 100F [...] Solares DO - 01/26/2015 8:44 AM CDT [facility] - Procedure Note Date of Visit: 01/26/15 Procedure performed: T1-T2 interlaminar epidural steroid injection with fluoroscopic guidance Diagnosis: Cervical spondylosis; Cervical radiculitis/radiculopathy Exercise Physiology Professor: Teagan Solares DO Anesthesia: none Indications: Megan [...] the patient was advised to contact the [facility] for any of the [...] weeks for post-procedure evaluation. Teagan Solares DO [facility] documented in this encounter Nursing Notes [...] active infection? NO Does patient have a courtesy driver? 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 NO [...] using cuff size: large Cathie Lew CMA ([facility]) Pain Management Center documented in this encounter Plan of Treatment Not on filedocumented as of this encounter Visit Diagnoses Diagnosis Cervical spondylosis without myelopathy - Primary Cervical radiculopathy Brachial neuritis or radiculitis nos documented in this encounter Care Teams Plywood Layup Line Core Feeder Relationship Specialty Start Date End Date Selma Good APRN CYLINDER DIE MACHINE OPERATOR PCP - General 04/09/08 04/07/15 [address] [facility] [address] A[place], [place] [address] documented as of this encounter
--- OUTSIDE RECORDS SUMMARY | 2022-05-09 13:32 | XMS_ITS | Encounter Summary ---
:1965 Author Organization [facility] Address [address] [place] [address]. [place] [address] Care Team Providers Name Role Phone Vanda Guerrero MD Primary Care Provider [phone] Reason for Visit Reason Comments RECHECK Follow up neurologist Flu Shot Encounter Details Date Type Department Care Team Description 04/08/2015 Office Visit [facility] Vanda Guerrero bola (Primary Dx); Pino Toribio MD Type 2 diabetes mellitus without complic ation (H); [address] Hyperlipidemia LDL goal <100 ; [place] [id number] [facility] Hypertension goal BP (blood pressure) < 130/80; [phone] [place] [address] History of lumbar fusion; [phone] History of fusi on of cervical spine; [...] How often do you attend orthodox or zoroastrianism Patient refused 08/08/2019 services? Do [...] weeks - either in person or via ElationEMRt to update me on how you are doing Schedule your mammogram - either with our mobile unit ([phone]) or at the hospital ([phone]) documented in this encounter Progress Notes Lori [...] the person to be vaccinated ever had Guillain-[place] syndrome? No Form completed by patient Vanda [...] list, Allergies, and Medical/Social/Surgical histories reviewed in [facility] andupdated as appropriate. ROS: Constitutional, msk, neuro, [...] can't afford to repeat. Planning on other half-way pain strategies. Continue cymbalta for now, add [...] SPLIT VIRUS IM > 3 YO (QUADRIVALENT) [10385] Vaccine Administration, Initial [74705] 10. Migraine without status migrainosus, not intractable, [...] weeks - either in person or via Kahuahart to update me on how you are doing Schedule your mammogram - either with our mobile unit ([phone]) or at the hospital ([phone]) Vanda Guerrero MD [facility]] documented in this encounter Nursing Notes Lori [...] MA Screening Digital Bilateral (04/16/2015 11:13 AM HEAD OF DESIGN) Anatomical Region Laterality Modality Breast Bilateral Mammography Specimen (Source) Anatomical Location Collection Method / Collectio n Time Received Time / Laterality Volume Impressions 04/16/2015 12:41 PM HEAD OF DESIGN IMPRESSION: BI-RADS CATEGORY: 1 - ??NEGATIVE. RECOMMENDED FOLLOW-UP: Annual Mammograph y Exam results letter mailed to patient. BRIGIDO RDZ MD Narrative 04/16/2015 12:41 PM HEAD OF DESIGN SCREENING MAMMOGRAM, BILATERAL, DIGITAL w/CAD - 04/16/2015 [...] Signature Hemoglobin A1C 6.0 4.3 - 6.0 [facility] [place] Specimen Anatomical Collection Method Collection Time Receive d Time (Source) Location / / Volume Laterality Blood specimen 04/08/2015 11:58 5 (specimen) AM CDT 11:59 AM CDT Vanda Guerrero MD LAB - BLOOD ORDERABLES Performing Organization Address City/[facility]/ZIP Code Phon e Number [facility] [address] [place] [address] Ferritin (04/08/2015 11:58 AM CDT) athologist Signature Ferritin 31 8 - 252 [facility] ng/mL [facility] Specimen Anatomical Collection Method Collection Time Receive d Time (Source) Location / / Volume Laterality Blood specimen 04/08/2015 11:58 5 (specimen) AM CDT 11:59 AM CDT Vanda Guerrero MD LAB - BLOOD ORDERABLES Performing Organization Address [facility]/ZIP Code Phon e Number [facility] [address] [place] [address] TSH with free T4 reflex (04/08/2015 11:58 AM CDT) athologist Signature TSH 1.84 0.40 - 4.00 [facility] mU/L [facility] Specimen Anatomical Collection Method Collection Time Receive d Time (Source) Location / / Volume Laterality Blood specimen 04/08/2015 11:58 5 (specimen) AM CDT 11:59 AM CDT Vanda Guerrero MD LAB - BLOOD ORDERABLES Performing Organization Address City/[facility]/ZIP [facility] Phon e Number [facility] [address] [place] [address] CBC with platelets (04/08/2015 11:58 AM CDT) athologist Signature WBC 5.4 4.0 - 11.0 [place] 10e9/L [facility] RBC Count 4.09 3.8 - 5.2 [place] 10e12/L [facility] Hemoglobin 13.1 11.7 - [place] 15.7 g/dL [facility] Hematocrit 39.9 35.0 - [place] 47.0 % [facility] MCV 98 78 - 100 [place] fl [facility] MCH 32.0 26.5 - [place] 33.0 pg [facility] MCHC 32.8 31.5 - [place] 36.5 g/dL [facility] RDW 12.7 10.0 - [place] 15.0 % [facility] Platelet Count 260 150 - 450 [place] 10e9/L [facility] Specimen Anatomical Collection Method Collection Time Receive d Time (Source) Location / / Volume Laterality Blood specimen 04/08/2015 11:58 5 (specimen) AM CDT 11:59 AM CDT Vanda Guerrero MD LAB - BLOOD ORDERABLES Performing Organization Address City/State/ZIP Code Phon e Number [facility] [address] [place] [address] Vitamin D Deficiency (04/08/2015 11:58 AM CDT) athologist Signature Vitamin D 32 20 - 75 [facility] Deficiency ug/L [facility] Comment: Season, race, dietary intake, and treatm ent affect the concentration of 66-adviuwo-Hjhpsgc D. Values may decrea se during winter [...] Address City/State/ZIP Code Phon e Number [address] (ABNORMAL) Vitamin B12 (04/08/2015 11:58 AM CDT) athologist Signature Vitamin B12 1,224 (H) 193 - 986 [facility] pg/mL [facility] Comment: Interp: [phone] = Normal Specimen Anatomical Collection Method Collection Time Receive d Time (Source) Location / / Volume Laterality Blood specimen 04/08/2015 11:58 5 (specimen) AM CDT 11:59 AM CDT Vanda Guerrero MD LAB - BLOOD ORDERABLES Performing Organization Address City/[facility]/ZIP Code Phon e Number [id number] [place] [address] (ABNORMAL) Vitamin B6 (04/08/2015 11:58 AM CDT) athologist Signature Vitamin B6 330.6 (H) [facility] Comment: Reference range: 20.0 to 125.0 Unit: nmol/L (Note) INTERPRETIVE INFORMATION: Vitamin B6 (Py ridoxal 5-Phosphate) Pyridoxal 5'-phosphate measured in a spe cimen collected following an 8-hour or overnight fast ac curately indicates vitamin B6 nutritional status. Non-fasti ng specimen concentration reflects recent vitamin in take. Test developed and characteristics deter mined by [facility]. See Compliance Statement B : [employer]/CS Performed by [facility], [address] [place] [address] [email or web address], Jae Botello MD, L ab. Director Specimen Anatomical Collection Method Collection Time Receive d Time (Source) Location / / Volume Laterality Blood specimen 04/08/2015 11:58 5 (specimen) AM CDT 11:59 AM CDT Vanda Guerrero MD LAB - BLOOD ORDERABLES Performing Organization Address City/[facility]/ZIP Code Phon e Number [address] [address] documented in this encounter Visit Diagnoses Diagnosis [...] mammogram documented in this encounter Care Teams Head Of Advertising Relationship Specialty Start Date End Date Vanda Guerrero MD PCP - General Internal Medicine 04/08/15 01/08/19 [address] [facility] [address] [place], [place] [address] documented as of this encounter
--- OUTSIDE RECORDS SUMMARY | 2022-05-09 13:33 | XMS_ITS | Encounter Summary ---
:1965 Author Organization [facility] Address [address] [place] [address] Care Team Providers Name Role Phone Selma Good APRN PRESSROOM SUPERVISOR Primary Care Provider [phone] Reason for Visit Reason Comments Depression Encounter Details Date Type Department Care Team Description 04/29/2014 Office Visit [facility] Florentino, Anxiety (Pr imary Dx); Pino Angeles APRN Insomnia; [address] [facility] Major depressive disorder, recurrent (H) ; [place] [address] [facility] Need for prophylactic vaccin ation and inoculation against influenza; [phone] [facility] Need for prophylactic vaccination agains t Streptococcus pneumoniae (pneumococcus); [place] [address] Type 2 diabetes, HbA1C goal < 7% (H); [phone] Hypertension go al BP (blood pressure) < [...] How often do you attend episcopal or judaism Patient refused 08/08/2019 services? Do [...] Comments Blood Pressure 86/54 04/29/2014 1:55 PM FIELD ARTILLERY SENIOR SERGEANT Pulse 76 04/29/2014 1:55 PM FIELD ARTILLERY SENIOR SERGEANT Temperature 35.4 ??C (95.7 ??F) 04/29/2014 1:55 PM FIELD ARTILLERY SENIOR SERGEANT Respiratory Rate 16 04/29/2014 1:55 PM FIELD ARTILLERY SENIOR SERGEANT Oxygen Saturation - - Inhaled Oxygen Concentration - - Weight 67.9 kg (149 lb 9.6 oz) 04/29/2014 1:55 PM FIELD ARTILLERY SENIOR SERGEANT Height - - Body Mass Index 27.36 10/27/2013 8:53 AM CDT documented in this encounter Patient Instructions Patient InstructionsSelma Good NP - 04/29/2014 2:26 PM FIELD ARTILLERY SENIOR SERGEANT STOP the lisinopril AND the simvastatin. Schedule [...] discussed possible side effects to this medication. D ARTILLERY SENIOR SERGEANT documented in this encounter Progress Notes Selma [...] (QUADRIVALENT W/PRESERVATIVES) - Seasonal Injectionable Immunization Administration [89277] 5. Need for prophylactic vaccination against Streptococcus [...] effects to this medication. Selma Good NP [facility] Injectable Influenza Immunization Documentation 1. Is the person to be vaccinated sick today? No 2. Does the person to be vaccinated have an allergy to eggs or to a component of the vaccine? No 3. Has the person to be vaccinated today ever had a serious reaction to influenza vaccine in the past? No 4. Has the person to be vaccinated ever had Guillain-[place]il[place] syndrome? No Form completed by self Form reviewed by Charlotte Mark CMA([facility]) D ARTILLERY SENIOR SERGEANT documented in this encounter Nursing Notes Charlotte [...] completed using cuff size: regular Charlotte Mark CMA([facility]) D ARTILLERY SENIOR SERGEANT documented in this encounter Plan of Treatment [...] hyperlipidemia documented in this encounter Care Teams Service Order Clerk Relationship Specialty Start Date End Date Danilo-Selma Mccoy, BLADE ALIGNER PRESSROOM SUPERVISOR PCP - General 04/09/08 04/07/15 [address] [facility] [place] [address] documented as of this encounter
--- OUTSIDE RECORDS SUMMARY | 2022-05-09 13:33 | XMS_ITS | Encounter Summary ---
:1965 Author Organization [place] Address [address] [place] [address] Care Team Providers Name Role Phone Selma Good APRN MANAGER GROUP HOME Primary Care Provider [phone] Reason for Visit Reason Onset Date Comments Refill Request 04/11/2014 ACCU CHEK test strp Encounter Details Date Type Department Care Team Description 04/11/2014 Refill [facility] Eag Selma Anthony Refill Request (ACCU [facility]40 [facility] Karthik, SEAN ROSA CHEK test strp) [place] [phone] [place] [address] [facility] [place] [id number] (Wo rk) [...] How often do you attend tenriism or sikh Patient refused 08/08/2019 services? Do [...] per Medication Refill Protocol. Bambi Morales RN STICS SOLUTION MANAGER Telephone Encounter - Tima Melchor - 04/11/2014 [...] uncontrolled documented in this encounter Care Teams Tooling Mechanic Relationship Specialty Start Date End Date Danilo-Selma Mccoy, MANUFACTURER'S REPRESENTATIVE MANAGER GROUP HOME PCP - General 04/09/08 04/07/[address] [facility] [place] [address] documented as of this encounter
--- OUTSIDE RECORDS SUMMARY | 2022-05-09 13:33 | XMS_ITS | Encounter Summary ---
:1965 Author Organization [place] Address [address] [place] [address]. [place] [address] Care Team Providers Name Role Phone Selma Good APRN RETAIL CUSTODIAL ASSOCIATE Primary Care Provider Reason for Referral Consultation - Closed Specialty Diagnoses / Procedures Referred By Contact Refer red To Contact Diagnoses OME (otitis media with effusion), bilateral Selma Good, [place] ALLERGY AND DAIRY EQUIPMENT MECHANIC RETAIL CUSTODIAL ASSOCIATE ASTHMA [address] [facility] [place] [id number] Referral ID Status Reason Start Date Expiration Date Visits Requ ested Visits Authorized [id number] Closed 12/17/2013 06/15/2014 1 1 Reason for Visit Reason Comments RECHECK Encounter Details Date Type Department Care Team Description 12/17/2013 Office Visit [facility] Florentino, Le al lergic rhinitis (Primary Dx); Pino Angeles APRN OME (otitis media with effus ion), bilateral; 1440 [employer] RETAIL CUSTODIAL ASSOCIATE Amenorrhea [place] [phone] [place] [address] [facility] [place] [id number] Social History Tobacco Use Types Packs/Day Years [...] How often do you attend zoroastrian or religion Patient refused 08/08/2019 services? Do you belong to any clubs or organizations such as No 08/08/2019 zoroastrian groups, Egomotions, fraNursenav or athletic groups, or school groups? How [...] file for this visit. Selma Good NP, REPORTING DEVELOPER [facility] documented in this encounter Nursing Notes [place] [...] menstruation documented in this encounter Care Teams Newspaper Managing Editor Relationship Specialty Start Date End Date Selma Good, DAIRY EQUIPMENT MECHANIC RETAIL CUSTODIAL ASSOCIATE PCP - General 04/09/08 04/07/[address] [facility] [place] [address] documented as of this encounter
--- OUTSIDE RECORDS SUMMARY | 2022-05-09 13:33 | XMS_ITS | Encounter Summary ---
:1965 Author Organization [place] Address [address] [place] [address] Care Team Providers Name Role Phone Selma Good APRN, CNP Primary Care Provider [phone] Reason for Visit Reason Onset Date Comments Refill Request 08/25/2014 TOPIRAMATE 50MG Encounter Details Date Type Department Care Team Description 08/25/2014 Refill [facility] Selma Hodges Refill Request 1440 [employer] SEAN Angeles CNP (TOPIRAMATE 50MG) [place] [phone] [place] [address] [facility] [place] [id number] (Wo rk) Social [...] I sent her a reminder letter, via mySBX and also mailed her a letter Meeta [...] migrainosus documented in this encounter Care Teams Pellet Mill Operator Relationship Specialty Start Date End Date Danilo-Selma Mccoy, JET DYEING MACHINE OPERATOR FOOD SERVICE WORKER HOSPITAL PCP - General 04/09/08 04/07/15 77[address] [facility] [place] [address] documented as of this encounter
--- OUTSIDE RECORDS SUMMARY | 2022-05-09 13:33 | XMS_ITS | Encounter Summary ---
:1965 Author Organization [place] Address [address] [place] [address] Care Team Providers Name Role Phone Selma Good APRN, CNP Primary Care Provider [phone] Reason for Visit Reason Onset Date Comments Refill Request 04/23/2014 CITALOPRAM 20MG Encounter Details Date Type Department Care Team Description 04/23/2014 Refill [facility] Selma Hodges Refill Request 1440 [employer] SEAN Angeles CNP (CITALOPRAM 20MG) [place] [phone] [place] [address] [facility] [place] [id number] (Wo rk) [...] How often do you attend taoism or oriental orthodox Patient refused 08/08/2019 services? [...] Keyona Salcido RN - 04/24/2014 12:39 PM DISTRICT SUPERINTENDENT Spoke to pharmacist- pt still has 30 left to fill. Removing med request. Keyona Salcido RN RICT SUPERINTENDENT Telephone Encounter - Day Greene RN - [...] 1 Suicidal thoughts 1 TOTAL SCORE-----> 10 RICT SUPERINTENDENT Telephone Encounter - Marisa Matthew - 04/23/2014 1:10 PM CST Refill request for: CITALOPRAM 20 mg Last prescribed by provider: Date: 03/25/2014 Quantity 120 w/ 0 refills Last filled through pharmacy: Date: Pharmacy Comments: LUZ ELENA Matthew RT(R) RICT SUPERINTENDENT documented in this encounter Plan of Treatment Not on filedocumented as of this encounter Visit Diagnoses Diagnosis Major depressive disorder, recurrent (H) Major depressive disorder, recurrent epi sode, unspecified documented in this encounter Care Teams Chief Hospital Administrator Relationship Specialty Start Date End Date Selma Good APRN FRAME ALIGNER PCP - General 04/09/08 04/07/[address] [facility] [address] [place], [place] [address] documented as of this encounter
--- OUTSIDE RECORDS SUMMARY | 2022-05-09 13:33 | XMS_ITS | Encounter Summary ---
:1965 Author Organization [place] Address [address] [place] [address] Care Team Providers Name Role Phone Selma Good CAREER DISCOVERY TEACHER DELIVERY DEPARTMENT SUPERVISOR Primary Care Provider [phone] Reason for Visit Reason Onset Date Comments Orders 08/04/2014 Encounter Details Date Type Department Care Team Description 08/04/2014 Telephone [facility] Eag Selma Anthony, Orders 1440 [facility] CAREER DISCOVERY TEACHER DELIVERY DEPARTMENT SUPERVISOR [place] [phone] [address] [facility] [phone] [facility] [place] [address] (Wo rk) [...] How often do you attend nondenominational or religion Patient refused 08/08/2019 services? Do [...] and repeat fasting labs in 2 m HT COUNT OPERATOR Telephone Encounter - Rossana Adams - 08/04/2014 3:[address] orders for upcoming lab appointment on 08/10/14 Thank you HT COUNT OPERATOR documented in this encounter Plan of Treatment Not on filedocumented as of this encounter Results Microalbumin quantitative random urine (08/10/2014 8:57 AM WEIGHT COUNT OPERATOR) Patholo gist Method Time Signature Creatinine 41 mg/dL [place] Urine [facility] Albumin Urine <5 mg/L [place] mg/L [facility] Albumin Urine Unable to calculate due to low value 0 - 25 [place] mg/g Cr Effective 01/07/2014, the re ference range for this assay has changed to reflect mg/g Cr [facility] new instrumentation/methodology. HOSPITAL Specimen Anatomical Collection Method Collection Time Receive d Time (Source) Location / / Volume Laterality Urine specimen 08/10/2014 8:57 AM 015 8:58 (specimen) WEIGHT COUNT OPERATOR AM WEIGHT COUNT OPERATOR Selma Good APRN DELIVERY DEPARTMENT SUPERVISOR LAB - URINE ORDERABLES Performing Organization Address City/State/ZIP Code Phon e Number M [facility] [address] [place] [address] [phone] [facility] [address] [place] [address] [facility] [address] [place], [place] [address] [facility] Lipid panel reflex to direct LDL (08/10/2014 8:56 AM WEIGHT COUNT OPERATOR) athologist Signature Cholesterol 153 <200 mg/dL [facility] Comment: LDL Cholesterol is the primary guide to therapy. The NCEP recommends further evaluation of: patients with cholesterol greater than 200 mg/dL if additional risk facto rs are present, cholesterol greater than 240 mg/dL, triglycerides greater than 1 50 mg/dL, or HDL less than 40 mg/dL. Triglycerides 79 0 - 150 mg/dL [place] CLI NICS [facility] HDL Cholesterol 61 >50 mg/dL [place] [facility]INI CS [facility] LDL Cholesterol Calculated 76 0 - 129 mg/dL [facility] Comment: LDL Cholesterol is the primary guide to therapy: LDL-cholesterol goal in high risk patients is <100 mg/dL and in very high risk patients is <70 mg/dL. VLDL-Cholesterol 16 0 - 30 mg/dL [facility] Cholesterol/HDL Ratio 2.5 0.0 - 5.0 [facility] Specimen Anatomical Collection Method Collection Time Receive d Time (Source) Location / / Volume Laterality Blood specimen 08/10/2014 8:56 AM 015 8:57 (specimen) WEIGHT COUNT OPERATOR AM WEIGHT COUNT OPERATOR Selma Good APRN, CNP LAB - BLOOD ORDERABLES Performing Organization Address City/State/ZIP Code Phon e Number [facility] [address] [place] [address] documented in this encounter Visit Diagnoses Diagnosis Type 2 diabetes, HbA1c goal < 7% (H) - P rimary Type II or unspecified type diabetes sukhdev litus without mention of complication, not stated as uncontrolled Hyperlipidemia LDL goal <100 Other and unspecified hyperlipidemia Hypertension goal BP (blood pressure) < 130/80 Unspecified essential hypertension documented in this encounter Care Teams Dry Room Operator Relationship Specialty Start Date End Date Selma Good APRN CNP PCP - General 04/09/08 04/07/15 [address] [facility] [place] [address] documented as of this encounter
--- OUTSIDE RECORDS SUMMARY | 2022-05-09 13:33 | XMS_ITS | Encounter Summary ---
:1965 Author Organization [place] Address [address] [place] [address] Care Team Providers Name Role Phone Selma Good APRN DICE SPOTTER Primary Care Provider [phone] Reason for Visit Reason Onset Date Comments Refill Request 09/21/2014 SIMVASTATIN 20MG Encounter Details Date Type Department Care Team Description 09/21/2014 Refill [facility] Eag Selma Anthony Refill Request 1440 [employer] SEAN Angeles CNP (SIMVASTATIN 20MG) [place] [phone] [facility] [phone] [facility] [place] [address] (Wo [...] How often do you attend episcopalian or methodist Patient refused 08/08/2019 services? Do [...] Calculated 0 - 129 mg/dL 76 [place] traffic signal mechanic Nurse Telephone Encounter - Marisa Matthew - [...] hyperlipidemia documented in this encounter Care Teams Material Spreader Relationship Specialty Start Date End Date Danilo-Selma Mccoy, HYDROSTATIC TESTER DICE SPOTTER PCP - General 04/09/08 04/07/15 [address] [facility] [place] [address] documented as of this encounter
--- OUTSIDE RECORDS SUMMARY | 2022-05-09 13:33 | XMS_ITS | Encounter Summary ---
:1965 Author Organization [place] Address [address] [place] [address] Care Team Providers Name Role Phone Selma Good APRN AUTOMATION MANAGER Primary Care Provider [phone] Reason for Visit Reason Comments Musculoskeletal Problem Encounter Details Date Type Department Care Team Description 03/25/2014 Office Visit [facility] Florentino, Janey speci fied idiopathic peripheral neuropathy (Primary Dx); Pino Angeles APRN Insomnia; [address] [facility] Type 2 diabetes, HbA1C goal < 7% (H); [place] [phone] [place] [address] Major depressive disorder, r ecurrent (H); [phone] [facility] [place] [id number] Social History Tobacco Use Types Packs/Day Years [...] How often do you attend jainism or hinduism Patient refused 08/08/2019 services? Do [...] Disease) ??? Obesity ??? Family History of [place] (Myocardial Infarction) ??? Cervical Pain ??? Insomnia [...] ??? Cardiovascular Mother GA age 72 ??? Cardiovascular Father GA early 40s, subsequent bipass ??? Diabetes Mother [...] month for follow up. Selma Good NP, EDITOR [facility] documented in this encounter Nursing [...] Signature Vitamin D 36 30 - 75 [facility] Deficiency ug/L [facility] screening Comment: Season, race, dietary intake, and treatm ent affect the concentration of 35-mbfrmse-Lhdwswr D. Values may decrea se during winter [...] questions, pl ease contact the laboratory at [phone]. Specimen Anatomical Collection Method Collection Time Receive d Time (Source) Location / / Volume Laterality Blood specimen 03/25/2014 3:16 PM 014 3:19 (specimen) CDT PM CDT Selma Good APRN, CNP LAB - BLOOD ORDERABLES Performing Organization Address City/State/ZIP Code Phon e Number [facility] [address] [place] [address] [facility] TSH with free T4 reflex (03/25/2014 3:16 PM CDT) athologist Signature TSH 2.39 0.40 - 4.00 [facility] mU/L [place] Comment: Effective 01/07/2014, the reference range for this assay has changed to reflect new instrumentation/methodology. Specimen Anatomical Collection Method Collection Time Receive d Time (Source) Location / / Volume Laterality Blood specimen 03/25/2014 3:16 PM 014 3:19 (specimen) CDT PM CDT Selma Good APRN, CNP LAB - BLOOD ORDERABLES Performing Organization Address City/[facility]/ZIP Code Phon e Number [facility] [address] [place] [address] [facility] [address] [place] [address] 20 Hemoglobin A1c (03/25/2014 3:16 PM CDT) athologist Signature Hemoglobin A1C 5.9 4.3 - 6.0 [facility] Specimen Anatomical Collection Method Collection Time Receive d Time (Source) Location / / Volume Laterality Blood specimen 03/25/2014 3:16 PM 014 3:19 (specimen) CDT PM CDT Selma Good APRN, CNP LAB - BLOOD ORDERABLES Performing Organization Address City/State/ZIP Code Phon e Number [facility] [address] [place] [address] documented in this encounter Visit Diagnoses Diagnosis [...] unspecified documented in this encounter Care Teams Plate Washer Relationship Specialty Start Date End Date Danilo-Selma Mccoy, CARDIAC EXERCISE PHYSIOLOGIST AUTOMATION MANAGER PCP - General 04/09/08 04/07/[address] [facility] [place] [address] documented as of this encounter
--- OUTSIDE RECORDS SUMMARY | 2022-05-09 13:33 | XMS_ITS | Encounter Summary ---
:1965 Author Organization [place] Address [address] [place] [address] Care Team Providers Name Role Phone Selma Good APRN COACH MECHANIC Primary Care Provider [phone] Reason for Visit Reason Onset Date Comments Refill Request 08/24/2014 OMEPRAZOLE 20MG Encounter Details Date Type Department Care Team Description 08/24/2014 Refill [facility] Selma Hodges Refill Request 1440 [employer] SEAN Angeles CNP (OMEPRAZOLE 20MG) [place] [address] [facility] [phone] [facility] [place] [address] [...] How often do you attend bahai or adventist Patient refused 08/08/2019 services? Do [...] reflux documented in this encounter Care Teams Emission Specialist Relationship Specialty Start Date End Date Danilo-Selma Mccoy, SOCK MENDER COACH MECHANIC PCP - General 04/09/08 04/07/15 [address] [facility] [address] [place], [place] [address] documented as of this encounter
--- OUTSIDE RECORDS SUMMARY | 2022-05-09 13:33 | XMS_ITS | Encounter Summary ---
:1965 Author Organization [facility] Address [address] [place] [address] Care Team Providers Name Role Phone Selma Good APRN [facility] Primary Care Provider [phone] Encounter Details Date Type Department Care Team Description 05/27/2013 Radiant Appointment [facility] Lexii Good cancer Pino Angeles, OCCUPANCY SPECIALIST screening [address] [facility] ,[address] [place], [place], [place] [phone] Social History Tobacco Use Types Packs/Day [...] How often do you attend taoist or oriental orthodox Patient refused 08/08/2019 services? [...] Procedure Name Priority Date/Time Associated Diagnosis Comme [facility] SCREENING Routine 05/27/2013 1:54 PM Breast cancer Results for this DIGITAL BILATERAL CORRECTION WORKER screening procedure are in the results section. documented in this encounter Results Mammo Screening digital (bilat) (05/27/2013 1:54 PM CORRECTION WORKER) Anatomical Region Laterality Modality Breast Bilateral Mammography Specimen (Source) Anatomical Location Collection Method / Collectio n Time Received Time / Laterality Volume Impressions 05/28/2013 9:50 AM CORRECTION WORKER IMPRESSION: BI-RADS CATEGORY: 1 - ??NEGATIVE. RECOMMENDED FOLLOW-UP: Annual Mammograph y. Exam results letter mailed to patient. JOSE DAO MD Narrative 05/28/2013 9:50 AM CORRECTION WORKER SCREENING MAMMOGRAM, BILATERAL, DIGITAL w/CAD - 05/27/2013 [...] unspecified documented in this encounter Care Teams Design Manager Relationship Specialty Start Date End Date Selma Good APRN DESIGN TECHNOLOGY TEACHER PCP - General 04/09/08 04/07/15 [address] [facility] [address] [place], [place] [address] documented as of this encounter
--- OUTSIDE RECORDS SUMMARY | 2022-05-09 13:33 | XMS_ITS | Encounter Summary ---
:1965 Author Organization [place] Address [address] [place] [address] Care Team Providers Name Role Phone Selma Good LEGAL ANALYST WORKFORCE DEVELOPMENT ASSISTANT Primary Care Provider [phone] Reason for Visit Reason Onset Date Comments Refill Request 03/14/2013 test strips Encounter Details Date Type Department Care Team Description 03/14/2013 Refill [facility] Eag Selma Anthony Refill Request (test 1440 Kobojo J, LEGAL ANALYST WORKFORCE DEVELOPMENT ASSISTANT strips) [place] [address] [facility] [phone] [facility] [place] [address] (Wo rk) Social [...] How often do you attend taoism or buddhist Patient refused 08/08/2019 services? Do [...] uncontrolled documented in this encounter Care Teams Rigger Apprentice Relationship Specialty Start Date End Date Danilo-Selma Mccoy, LEGAL ANALYST WORKFORCE DEVELOPMENT ASSISTANT PCP - General 04/09/08 04/07/[address] [facility] [place] [address] documented as of this encounter
--- OUTSIDE RECORDS SUMMARY | 2022-05-09 13:33 | XMS_ITS | Encounter Summary ---
:1965 Author Organization [place] Address [address] [place] [address] Care Team Providers Name Role Phone Selma Good APRN CLEANER INDUSTRIAL Primary Care Provider [phone] Reason for Visit Reason Onset Date Comments Refill Request 05/19/2014 DULOXETINE HCL 30 MG Encounter Details Date Type Department Care Team Description 05/19/2014 Refill [facility] Eag Selma Anthony Refill Request 1440 Yidio J, SE[place] (DULOXETINE HCL DR 30MG) [place] [phone] [place] [address] [facility] [place] [address] (Wo rk) [...] How often do you attend evangelical or muslim Patient refused 08/08/2019 services? Do [...] Kallie Golden RN - 05/26/2014 9:41 AM TECHNICAL PHOTOGRAPHER Addended by: KALLIE GOLDEN on: 05/26/2014 09:41 AM Modules accepted: Orders NICAL PHOTOGRAPHER Telephone Encounter - Kallie Golden RN - [...] 03/25/14 86/66 12/17/13 90/50 ALT 24 10/27/2013 NICAL PHOTOGRAPHER Telephone Encounter - Mignon Beatty RN - 05/19/2014 3:33 PM CST Filled 04/28/14 for 90 days with refills Mignon Beatty RN NICAL PHOTOGRAPHER Telephone Encounter - Eri [place] - 05/19/2014 8:38 AM CST Refill request for: DULOXETINE 30 mg Last prescribed by provider: Date: 10/27/2013 Quantity 180 w/ 1 refills Last filled through pharmacy: Date: 02/19/2014 Pharmacy Comments: LUZ ELENA [place] RT(R) NICAL PHOTOGRAPHER documented in this encounter Plan of Treatment Not on filedocumented as of this encounter Visit Diagnoses Diagnosis Fibromyalgia Mylagia and myositis, unspecified documented in this encounter Care Teams Desktop Publishing Associate Relationship Specialty Start Date End Date Danilo-Selma Mccoy, INSTITUTIONAL ASSET MANAGER CLEANER INDUSTRIAL PCP - General 04/09/08 04/07/15 [address] [facility] [address] [place], [place] [address] documented as of this encounter
--- OUTSIDE RECORDS SUMMARY | 2022-05-09 13:33 | XMS_ITS | Encounter Summary ---
:1965 Author Organization [place] Address [address] [place] [address] Care Team Providers Name Role Phone Selma Good APRN, CNP Primary Care Provider [phone] Reason for Visit Reason Onset Date Comments Refill Request 06/23/2014 FLUTICASONE PROP 50M CG SPRAY Encounter Details Date Type Department Care Team Description 06/23/2014 Refill [facility] Selma Hodges Refill Request 1440 [employer] SEAN Angeles CNP (FLUTICASONE PROP 50MCG [place] [phone] [address] [facility] SPRAY) [phone] [facility] [place] [address] (Wo rk) [...] YOSELIN 06-09-14 Filled PSO. Abigail Burciaga RN D ROUTE OPERATOR Telephone Encounter - Marisa Matthew - 06/23/2014 11:53 AM CST Refill request for: FLUTICASONE 50MCG SPRAY Last prescribed by provider: Date: 05/30/2013 Quantity 1 w/ 11 refills Last filled through pharmacy: Date: 05/25/2014 Pharmacy Comments: LUZ ELENA Matthew RT(R) D ROUTE OPERATOR documented in this encounter Plan of Treatment Not on filedocumented as of this encounter Visit Diagnoses Diagnosis OME (otitis media with effusion), left - Primary documented in this encounter Care Teams Carbon Brusher Assembler Relationship Specialty Start Date End Date Danilo-Selma Mccoy, HAND ASSEMBLER UTILITIES ESTIMATOR AND DRAFTER PCP - General 04/09/08 04/07/15 [address] [facility] [place] [address] documented as of this encounter
--- OUTSIDE RECORDS SUMMARY | 2022-05-09 13:33 | XMS_ITS | Encounter Summary ---
:1965 Author Organization [facility] Address [address] [place] [address] Care Team Providers Name Role Phone Selma Good APRN REPAIRER CYLINDER HEADS Primary Care Provider Reason for Visit Reason Comments Diabetes Encounter Details Date Type Department Care Team Description 10/27/2013 Office Visit [facility] Florentino, Type 2 diab etes, HbA1C goal < 7% (H) (Primary Dx); Pino Angeles APRN Fibromyalgia; [address] [facility] OME (otitis media with effusion), bilate DAV[place] Foster [address] [address] [facility] [phone] [facility] [place] [address] Social History Tobacco [...] for follow up visit. Selma Good NP, SUPERVISOR TRAVEL INFORMATION CENTER [facility] [place] documented in this encounter [...] Signature Hemoglobin A1C 6.0 4.3 - 6.0 [facility] Specimen Anatomical Collection Method Collection Time Receive d Time (Source) Location / / Volume Laterality Blood specimen 10/27/2013 8:57 AM 014 8:58 (specimen) CDT AM CDT Selma Good APRN REPAIRER CYLINDER HEADS LAB - BLOOD ORDERABLES Performing Organization Address City/State/ZIP Code Phon e Number [facility] [address] [place] [address] (ABNORMAL) Lipid panel reflex to direct LDL (10/27/2013 8:57 AM CDT) athologist Signature Cholesterol 106 <200 mg/dL [facility] Comment: LDL Cholesterol is the primary guide to therapy. The NCEP recommends further evaluation of: patients with cholesterol greater than 200 mg/dL if additional risk facto rs are present, cholesterol greater than 240 mg/dL, triglycerides greater than 1 50 mg/dL, or HDL less than 40 mg/dL. Triglycerides 39 0 - 150 mg/dL [facility] HDL Cholesterol 29 (L) >50 mg/dL [facility] LDL Cholesterol Calculated 69 0 - 129 mg/dL [facility] Comment: LDL Cholesterol is the primary guide to therapy: LDL-cholesterol goal in high risk patients is <100 mg/dL and in very high risk patients is <70 mg/dL. VLDL-Cholesterol 8 0 - 30 mg/dL [facility] [place] Cholesterol/HDL Ratio 3.7 0.0 - 5.0 [facility] Specimen Anatomical Collection Method Collection Time Receive d Time (Source) Location / / Volume Laterality Blood specimen 10/27/2013 8:57 AM 014 8:58 (specimen) CDT AM CDT Selma Good APRN REPAIRER CYLINDER HEADS LAB - BLOOD ORDERABLES Performing Organization Address City/State/ZIP Code Phon e Number [facility] [address] [place] [address] (ABNORMAL) Comprehensive metabolic panel (10/27/2013 8:57 AM CDT) athologist Signature Sodium 143 133 - 144 [place] mmol/L [facility] Potassium 3.8 3.4 - 5.3 [place] mmol/L [facility] Chloride 107 94 - 109 [place] mmol/L [facility] Carbon Dioxide 26 20 - 32 [place] mmol/L [facility] Anion Gap 10 6 - 17 [place] mmol/L [facility] Glucose 100 (H) 60 - 99 [place] mg/dL [facility] Comment: Fasting specimen Urea Nitrogen 14 7 - 30 mg/dL [facility] Creatinine 0.64 0.52 - 1.04 mg/dL [facility] GFR Estimate >90 >60 mL/min/1.7m2 [facility] GFR Estimate If Black >90 >60 mL/min/1.7m2 [facility] Calcium 8.9 8.5 - 10.4 mg/dL [facility] Bilirubin Total 0.4 0.2 - 1.3 mg/dL [facility] Albumin 3.4 (L) 3.9 - 5.1 g/dL [facility] Comment: Reference range changed on 02/10. Protein Total 6.5 (L) 6.8 - 8.8 g/dL [facility] Comment: As of 07, reference range reflects plasma specimen type. Alkaline Phosphatase 86 40 - 150 U/L [facility] ALT 24 0 - 50 U/L [facility] EA AL[place]AN[place] AST 20 0 - 45 U/L [facility] ALESSANDRO Specimen Anatomical Collection Method Collection Time Receive d Time (Source) Location / / Volume Laterality Blood specimen 10/27/2013 8:57 AM 014 8:58 (specimen) CDT AM CDT Selma Good APRN, CNP LAB - BLOOD ORDERABLES Performing Organization Address City/State/ZIP Code Phon e Number [facility] 14[address] [facility] [place] [address] documented in this encounter Visit Diagnoses Diagnosis Type 2 diabetes, HbA1c goal < 7% (H) - P rimary Type II or unspecified type diabetes sukhdev litus without mention of complication, not stated as uncontrolled Fibromyalgia Mylagia and myositis, unspecified OME (otitis media with effusion), bilate ral documented in this encounter Care Teams Train Station Server Relationship Specialty Start Date End Date Selma Good APRN REPAIRER CYLINDER HEADS PCP - General 04/09/08 04/07/15 3[address] [facility] [place] [address] documented as of this encounter
--- OUTSIDE RECORDS SUMMARY | 2022-05-09 13:33 | XMS_ITS | Encounter Summary ---
:1965 Author Organization [facility] Address [address] [place] [address]. [place] [address] Care Team Providers Name Role Phone Selma Good APRN [facility] Primary Care Provider Reason for Referral Consultation - Closed Specialty Diagnoses / Procedures Referred By Contact Refer red To Contact Diagnoses Dizziness Selma Good [facility] WINDER [address] [place] [address] [place] [phone] [place] [id number] Referral ID Status Reason Start Date Expiration Date Visits Requ ested Visits Authorized [id number] Closed 05/30/2013 11/26/2013 1 1 TURBINE BLADE REPAIR TECHNICIAN Reason for Visit Reason Comments Diabetes Encounter Details Date Type Department Care Team Description 05/30/2013 Office Visit [facility] Florentino, Type 2 diab etes, HbA1C goal < 7% (H) (Primary Dx); Pino Angeles APRN Screen for colon cancer; 1440 [facility] Screening for diabetic retinopathy; [place] [phone] [place] [address] Screening for diabetic perip heral neuropathy; [phone] [facility] Need for prophylactic vaccination and in oculation against influenza; [place] [address] Hyperlipidemia LDL goal <100; [phone] GERD (gastroeso phageal reflux disease); (Work) Hypertension goal BP (blood pressure) < 130/80; [phone] Fibromyalgia; (Fax) Migraine headac he; Obesity; Major [...] How often do you attend orthodox or anabaptism Patient refused 08/08/2019 services? Do [...] Comments Blood Pressure 90/56 05/30/2013 1:02 PM WIND TURBINE BLADE REPAIR TECHNICIAN Pulse 68 05/30/2013 1:02 PM WIND TURBINE BLADE REPAIR TECHNICIAN Temperature 36.7 ??C (98.1 ??F) 05/30/2013 1:02 PM WIND TURBINE BLADE REPAIR TECHNICIAN Respiratory Rate 16 05/30/2013 1:02 PM WIND TURBINE BLADE REPAIR TECHNICIAN Oxygen Saturation 98% 05/30/2013 1:02 PM WIND TURBINE BLADE REPAIR TECHNICIAN Inhaled Oxygen Concentration - - Weight 67.9 kg (149 lb 11.2 oz) 05/30/2013 1:02 PM WIND TURBINE BLADE REPAIR TECHNICIAN Height 157.5 cm (5' 2) 05/30/2013 1:02 PM WIND TURBINE BLADE REPAIR TECHNICIAN Body Mass Index 27.38 05/30/2013 1:02 PM WIND TURBINE BLADE REPAIR TECHNICIAN documented in this encounter Patient Instructions Patient InstructionsSelma Good NP - 05/30/2013 1:27 PM WIND TURBINE BLADE REPAIR TECHNICIAN We'll check your labs to find explanation for the dizziness. If they are normal, I'd like you to schedule an appointment with ENT. [facility] [phone] In the mean time, try the nasal spray to see if it helps. TURBINE BLADE REPAIR TECHNICIAN documented in this encounter Progress Notes [...] / Panic / Manic symptoms: No PHQ-9 Zambian PHQ-9 Any Language ?? Amount of exercise [...] Disease) ??? Obesity ??? Family History of CT (Myocardial Infarction) ??? Cervical Pain ??? Insomnia [...] against influenza Comment: Plan: ADMIN VACCINE, FIRST [49732], C FLU VACCINE, 3 YRS +, IM (QUADRIVALENT NO PRESERVATIVES) 272.4 Hyperlipidemia LDL goal <100 Comment: Plan: simvastatin (ZOCOR) 20 MG tablet 530.81 GERD (gastroesophageal reflux disease) Comment: Plan: omeprazole (PRILOSEC) 20 MG capsule 401.9 Hypertension goal BP (blood pressure) < 130/80 Comment: Plan: lisinopril (PRINIVIL,ZESTRIL) 5 MG tablet 729.1 Fibromyalgia Comment: Plan: DEPRESSION ACTION PLAN (DAP) Order [[id number]], DULoxetine (CYMBALTA) 30 MG capsule 346.90 Migraine [...] with E[facility]. [facility] [phone] In the mean time, try the nasal spray to see if it helps. Selma Good NP, MECHANICAL SERVICE SPECIALIST [facility] TURBINE BLADE REPAIR TECHNICIAN documented in this encounter Nursing Notes [...] Associated Diagnoses [facility] OT[facility] RE[facility]ERR[facility] Referral Routine Dizziness Orde red: 05/30/2013 documented as of this encounter Procedures Procedure Name Priority Date/Time Associated Diagnosis Comme nts ALBUMIN RANDOM URINE Routine 05/30/2013 1:50 PM Type 2 diabete s, Results for this QUANTITATIVE WIND TURBINE BLADE REPAIR TECHNICIAN HbA1C goal < 7% (H) procedur e are in the results section. VITAMIN D DEFICIENCY Routine 05/30/2013 1:49 PM Dizziness R esults for this SCREENING WIND TURBINE BLADE REPAIR TECHNICIAN procedure are i n the results section. TSH WITH FREE T4 Routine 05/30/2013 1:49 PM Dizziness Resul ts for this REFLEX WIND TURBINE BLADE REPAIR TECHNICIAN procedure are i n the results section. HEMOGLOBIN A1C Routine 05/30/2013 1:49 PM Type 2 diabetes, Res ults for this WIND TURBINE BLADE REPAIR TECHNICIAN HbA1C goal < 7% (H) procedur e are in the results section. CBC WITH PLATELETS Routine 05/30/2013 1:49 PM Dizziness Res ults for this WIND TURBINE BLADE REPAIR TECHNICIAN procedure are i n the results section. C FOOT EXAM Routine 05/30/2013 1:27 PM Screening for WIND TURBINE BLADE REPAIR TECHNICIAN diabetic peripheral neuropathy EYE EXAM Routine 05/30/2013 1:27 PM Screening for (SIMPLE-NONBILLABLE) WIND TURBINE BLADE REPAIR TECHNICIAN diabetic retinopathy documented in this encounter Results MICROALBUMIN QUANTITATIVE RANDOM URINE (05/30/2013 1:50 PM WIND TURBINE BLADE REPAIR TECHNICIAN) Component Value Ref Test Analysis Performed At Patholo gist Range Method Time Signature Creatinine 146 mg/dL [facility] Urine [facility] Albumin Urine <5 mg/L [facility] mg/L Urine Microalbumin lowest re portable value has been changed from 2 mg/L to 5 [facility] mg/L due to a methodology change on September. CAMPUS LABS Albumin Urine Unable to 0 - 25 [facility] mg/g Cr calculate mg/g Cr [facility] Specimen Anatomical Collection Method Collection Time Receive d Time (Source) Location / / Volume Laterality Urine specimen 05/30/2013 1:50 PM 013 1:52 (specimen) WIND TURBINE BLADE REPAIR TECHNICIAN PM WIND TURBINE BLADE REPAIR TECHNICIAN Selma Good APRN USER INTERFACE ARTIST LAB - URINE ORDERABLES Performing Organization Address City/State/ZIP Code Phon e Number [facility] [address] LABS (ABNORMAL) Vitamin D Deficiency (05/30/2013 1:49 PM WIND TURBINE BLADE REPAIR TECHNICIAN) athologist Signature Vitamin D 27 (L) 30 - 75 [facility] Deficiency ug/L [facility] LABS Comment: Season, race, dietary intake, and treatm ent affect the concentration of 23-qneoonu-Pmiqhmd D. Values may decrea se during winter [...] questions, pl ease contact the laboratory at [phone]. Specimen Anatomical Collection Method Collection Time Receive d Time (Source) Location / / Volume Laterality Blood specimen 05/30/2013 1:49 PM 013 1:51 (specimen) WIND TURBINE BLADE REPAIR TECHNICIAN PM WIND TURBINE BLADE REPAIR TECHNICIAN Selma Good APRN USER INTERFACE ARTIST LAB - BLOOD ORDERABLES Performing Organization Address City/State/ZIP Code Phon e Number [facility] [address] [place] [address] [facility] LABS CBC with platelets (05/30/2013 1:49 PM WIND TURBINE BLADE REPAIR TECHNICIAN) athologist Signature WBC 7.0 4.0 - [...] specimen 05/30/2013 1:49 PM 013 1:51 (specimen) WIND TURBINE BLADE REPAIR TECHNICIAN PM WIND TURBINE BLADE REPAIR TECHNICIAN Selma Good APRN, CNP LAB - BLOOD ORDERABLES Performing Organization Address City/State/ZIP Code Phon e Number [facility] [address] [place] [address] TSH with free T4 reflex (05/30/2013 1:49 PM WIND TURBINE BLADE REPAIR TECHNICIAN) athologist Signature TSH 1.68 0.4 - 5.0 [facility] mU/L [facility] Specimen Anatomical Collection Method Collection Time Receive d Time (Source) Location / / Volume Laterality Blood specimen 05/30/2013 1:49 PM 013 1:51 (specimen) WIND TURBINE BLADE REPAIR TECHNICIAN PM WIND TURBINE BLADE REPAIR TECHNICIAN Selma Good APRN, CNP LAB - BLOOD ORDERABLES Performing Organization Address City/State/ZIP Code Phon e Number [facility] [address] [place] [address] [facility] [address] [place], [place] [address] HEMOGLOBIN A1C (05/30/2013 1:49 PM WIND TURBINE BLADE REPAIR TECHNICIAN) P athologist Signature Hemoglobin A1C 5.6 4.3 - 6.0 [facility] Specimen Anatomical Collection Method Collection Time Receive d Time (Source) Location / / Volume Laterality Blood specimen 05/30/2013 1:49 PM 013 1:51 (specimen) WIND TURBINE BLADE REPAIR TECHNICIAN PM WIND TURBINE BLADE REPAIR TECHNICIAN Selma Good APRN, CNP LAB - BLOOD ORDERABLES Performing Organization Address City/State/ZIP Code Phon e Number [facility] 1440 [facility] [place] [address] documented in this encounter Visit Diagnoses Diagnosis [...] left documented in this encounter Care Teams Loan Counselor Relationship Specialty Start Date End Date Selma Good APRN CNP PCP - General 04/09/08 04/07/15 3[address] [facility] [place] [id number] documented as of this encounter
--- OUTSIDE RECORDS SUMMARY | 2022-05-09 13:33 | XMS_ITS | Encounter Summary ---
:1965 Author Organization [facility] Address [address] [place] [address] Care Team Providers Name Role Phone Selma Good APRN, CNP Primary Care Provider Reason for Visit Reason Onset Date Comments Refill Request 09/22/2014 TOPIRAMATE 50MG Encounter Details Date Type Department Care Team Description 09/22/2014 Refill [facility] Semla Hodges Refill Request 1440 [employer] SEAN Angeles CNP (TOPIRAMATE 50MG) [place] [phone] [place] [address] [facility] DAV[place] [address] (Wo rk) [...] How often do you attend adventist or gnosticism Patient refused 08/08/2019 services? Do [...] informed. Abigail Burciaga RN Telephone Encounter - NanenttedanielMarisa - 09/22/2014 1:38 PM CDT Refill request [...] migrainosus documented in this encounter Care Teams Nuclear Plant Equipment Operator Relationship Specialty Start Date End Date Danilo-Selma Mccoy, BOAT DOCK OPERATOR SR. DIRECTOR PRODUCT MANAGEMENT PCP - General 04/09/08 04/07/[address] [facility] [address] [place], [place] [id number] documented as of this encounter
--- OUTSIDE RECORDS SUMMARY | 2022-05-09 13:33 | XMS_ITS | Encounter Summary ---
:1965 Author Organization [facility] Address [address] [place] [address]. [place] [address] Care Team Providers Name Role Phone Selma Good APRN INSTRUMENT OPERATOR Primary Care Provider Reason for Referral Specialty Diagnoses / Procedures Referred By Contact Refer red To Contact Rayo Whitehead DPM [address] [place] [address] Referral ID Status Reason Start Date Expiration Date Visits Requ ested Visits Authorized Reason for Visit Reason Comments Musculoskeletal Problem left great toe- possible fun anette. Diabetic foot check. Encounter Details Date Type Department Care Team Description 02/21/2013 Office Visit [facility] Rayo Whitehead Type II or unspecified type diabetes mellitus without mention of complication, not stated as uncontrolled (Primary Dx); Pino Jacome DPM Contusion of toe [address] [place] [address] E [phone] [address] [place], [place] [address] Social History Tobacco Use Types [...] How often do you attend mosque or temple Patient refused 08/08/2019 services? Do you belong to any clubs or organizations such as No 08/08/2019 mosque groups, IROCKEs, fraternal or athletic groups, or school groups? [...] Relation Age of Onset ??? Cardiovascular Mother NE age 72 ??? Cardiovascular Father NE early 40s, subsequent bipass ??? Diabetes Mother [...] sensation to light touch and using 5.07 [place]a wire is present to both feet. Skin [...] toe documented in this encounter Care Teams Senior Engineering Team Leader Relationship Specialty Start Date End Date Danilo-Selma Mccoy, ROD DRAWER INSTRUMENT OPERATOR PCP - General 04/09/08 04/07/15 5094 [facility] [place] [address] documented as of this encounter
--- OUTSIDE RECORDS SUMMARY | 2022-05-09 13:33 | XMS_ITS | Encounter Summary ---
:1965 Author Organization [facility] Address [address] [place] [address]. [place] [address] Care Team Providers Name Role Phone Selma Good APRN, CNP Primary Care Provider [phone] Reason for Visit Reason Onset Date Comments Refill Request 08/17/2014 SIMVASTATIN 20MG Refill Request 08/17/2014 LISINOPRIL 5MG Encounter Details Date Type Department Care Team Description 08/17/2014 Refill [facility] Eag an Selma Good Refill Request 1440 [employer] ( H[employer] ) [facility] SEAN Angeles CNP (SIMVASTATIN 20MG); [place] [phone] 6238 [facility] Refill Request [phone] NASIR ANDRE (LISINOPRIL 5MG) [place] [address] [...] How often do you attend hoahaoism or spiritism Patient refused 08/08/2019 services? Do [...] hypertension documented in this encounter Care Teams Environmental Science Professor Relationship Specialty Start Date End Date Danilo-Selma Mccoy, INDUSTRIAL ARTS TEACHER SIX PACK PACKER PCP - General 04/09/08 04/07/[address] [facility] [address] [place], [place] [address] documented as of this encounter
--- OUTSIDE RECORDS SUMMARY | 2022-05-09 13:33 | XMS_ITS | Encounter Summary ---
:1965 Author Organization [facility] Address [address] [place] [address] Care Team Providers Name Role Phone Selma Good APRN [address] PRODUCTION MANAGER Primary Care Provider [phone] Encounter Details Date Type Department Care Team Description 08/25/2013 Orders Only [facility] Eag an Screen for colon cancer 14[address] [place] [address] Social History Tobacco Use Types [...] How often do you attend cheondoism or mormon Patient refused 08/08/2019 services? Do [...] logist Time Signature Occult Blood Negative NEG [facility] Scn [facility] LABS Specimen Anatomical Collection Method Collection Time Receive d Time (Source) Location / / Volume Laterality Stool specimen 08/21/2013 9:00 AM 014 (specimen) CDT 10:41 AM CDT Selma Good APRN [address] RO[address] PRODUCTION MANAGER LAB - STOOLS ORDERABLES Performing Organization Address City/State/ZIP Code Phon e Number [facility] [address] [place], [place] [id number] [place] [address] LABS documented in this encounter Visit Diagnoses Diagnosis Screen for colon cancer Special screening for malignant neoplasm s, colon documented in this encounter Care Teams Color Straining Bag Washer Relationship Specialty Start Date End Date Danilo-Selma Mccoy, WATER/WASTEWATER ENGINEER [address] PRODUCTION MANAGER PCP - General 04/09/08 04/07/15 [address] [facility] [address] [place], [place] [address] documented as of this encounter
--- OUTSIDE RECORDS SUMMARY | 2022-05-09 13:33 | XMS_ITS | Encounter Summary ---
:1965 Author Organization [facility] Address [address] [place] [address] Care Team Providers Name Role Phone Selma Good APRN DOCUMENT MANAGEMENT ANALYST Primary Care Provider [phone] Reason for Visit Reason Onset Date Comments Refill Request 09/20/2014 METFORMIN HCL 1000 M G Encounter Details Date Type Department Care Team Description 09/20/2014 Refill [facility]ag Selma Anthony Refill Request 1440 [employer] SEAN Angeles CNP (METFORMIN HCL 1000 MG) [place] [address] [facility] [phone] [facility] [place] [address] (Wo rk) Social [...] How often do you attend jewish or scientology Patient refused 08/08/2019 services? Do [...] uncontrolled documented in this encounter Care Teams Bottomer Operator Relationship Specialty Start Date End Date Danilo-Selma Mccoy, HEAD GRINDER DOCUMENT MANAGEMENT ANALYST PCP - General 04/09/08 04/07/15 [address] [facility] [place] [address] documented as of this encounter
--- OUTSIDE RECORDS SUMMARY | 2022-05-09 13:33 | XMS_ITS | Encounter Summary ---
:1965 Author Organization [facility] Address [address] [place] [address]. [place] [address] Care Team Providers Name Role Phone Selma Good APRN SENIOR WINDOWS ENGINEER Primary Care Provider [phone] Encounter Details Date Type Department Care Team Description 06/08/2014 Orders Only [facility] Eag an Hyperlipidemia LDL goal <100 [address] [place] [address] Social History Tobacco Use Types [...] How often do you attend holiness or gnosticism Patient refused 08/08/2019 services? Do [...] goal Results for this DIRECT LDL PANEL ACCURACY EXPERT <100 procedure a re in the results section. documented in this encounter Results Lipid panel reflex to direct LDL (06/08/2014 8:40 AM ACCURACY EXPERT) P athologist Signature Cholesterol 197 <200 mg/dL [facility] Comment: LDL Cholesterol is the primary guide to therapy. The NCEP recommends further evaluation of: patients with cholesterol greater than 200 mg/dL if additional risk facto rs are present, cholesterol greater than 240 mg/dL, triglycerides greater than 1 50 mg/dL, or HDL less than 40 mg/dL. Triglycerides 77 0 - 150 mg/dL [facility] Comment: Fasting specimen HDL Cholesterol 57 >50 mg/dL [facility] [place] [facility] LDL Cholesterol Calculated 125 0 - 129 mg/dL [facility] Comment: LDL Cholesterol is the primary guide to therapy: LDL-cholesterol goal in high risk patients is <100 mg/dL and in very high risk patients is <70 mg/dL. VLDL-Cholesterol 15 0 - 30 mg/dL [facility] [place] Cholesterol/HDL Ratio 3.5 0.0 - 5.0 [facility] Specimen Anatomical Collection Method Collection Time Receive d Time (Source) Location / / Volume Laterality Blood specimen 06/08/2014 8:40 AM 014 8:45 (specimen) ACCURACY EXPERT AM ACCURACY EXPERT Selma Good APRN, CNP LAB - BLOOD ORDERABLES Performing Organization Address City/State/ZIP Code Phon e Number [facility] [address] [place] [address] [facility] [address], [place] [address] documented in this encounter Visit Diagnoses Diagnosis Hyperlipidemia LDL goal <100 Other and unspecified hyperlipidemia documented in this encounter Care Teams Design Project Manager Relationship Specialty Start Date End Date Selma Good APRN SENIOR WINDOWS ENGINEER PCP - General 04/09/08 04/07/15 3[address] [facility] [place] [address] documented as of this encounter
--- OUTSIDE RECORDS SUMMARY | 2022-05-09 13:33 | XMS_ITS | Encounter Summary ---
:1965 Author Organization [facility] Address [address] [place] [address] Care Team Providers Name Role Phone Selma Good APRN TEAM SPORTS SALES ASSOCIATE Primary Care Provider [phone] Reason for Visit Reason Onset Date Comments Refill Request 05/05/2014 Accu-Chek multi Clix lancets Encounter Details Date Type Department Care Team Description 05/05/2014 Refill [facility] Selma Hodges Refill Request [address] [employer] SEAN Angeles CNP (Accu-Chek multi Clix [place] [phone] [facility] lancets) [phone] [facility] [...] How often do you attend muslim or congregation Patient refused 08/08/2019 services? Do you belong to any clubs or organizations such as No 08/08/2019 muslim groups, unions, fraTelefonica or athletic groups, or school groups? How [...] refilled per RN susy. Iain Barone RN WASHER GLUER documented in this encounter Plan of Treatment Not on filedocumented as of this encounter Visit Diagnoses Diagnosis Type 2 diabetes, HbA1c goal < 7% (H) - P rimary Type II or unspecified type diabetes sukhdev litus without mention of complication, not stated as uncontrolled documented in this encounter Care Teams Laborer Chicken Farm Relationship Specialty Start Date End Date Danilo-Selma Mccoy, MICROSOFT INFRASTRUCTURE CONSULTANT TEAM SPORTS SALES ASSOCIATE PCP - General 04/09/08 04/07/15 0265 [facility] [place] [id number] documented as of this encounter
--- OUTSIDE RECORDS SUMMARY | 2022-05-09 13:33 | XMS_ITS | Encounter Summary ---
:1965 Author Organization [facility] Address [address] [place] [address] Care Team Providers Name Role Phone Selma Good APRN CLOTH STRETCHER Primary Care Provider [phone] Reason for Visit Reason Onset Date Comments Panel Management 07/07/2013 Encounter Details Date Type Department Care Team Description 07/07/2013 Telephone [facility] Eag Selma Anthony Panel Management [address] [facility] J, SEAN CLOTH STRETCHER [place] [phone] 5375 [facility] [phone] [facility] DAV[place] [address] (Wo rk) [...] How often do you attend alevism or bahai Patient refused 08/08/2019 services? Do [...] in one month if FIT not recd. MANUFACTURE SUPERVISOR Telephone Encounter - Charlotte Mark - 07/07/2013 4:54 PM CST Panel Management Review Date of last visit with a [facility] provider: KATHY on 05-30-13. Date of next visit with a [facility] provider: None. Problem List Patient Active Problem List Diagnosis ??? Migraine headache ??? GERD (Gastroesophageal Reflux Disease) ??? Obesity ??? Family History of [place] (Myocardial Infarction) ??? Cervical Pain ??? Insomnia [...] fasting or not fasting. Charlotte Mark CMA(AAMA) MANUFACTURE SUPERVISOR documented in this encounter Plan of Treatment Not on filedocumented as of this encounter Visit Diagnoses Diagnosis Screening for malignant neoplasm of the rectum - Primary documented in this encounter Care Teams Supervisor Agricultural Education Relationship Specialty Start Date End Date Selma Good APRN CLOTH STRETCHER PCP - General 04/09/08 04/07/15 3314 [facility] [place] [id number] documented as of this encounter
--- OUTSIDE RECORDS SUMMARY | 2022-05-09 13:33 | XMS_ITS | Encounter Summary ---
:1965 Author Organization [facility] Address [address] [place] [address] Care Team Providers Name Role Phone Selma Good CATALYTIC CASE OPERATOR INDUCTION COORDINATION ENGINEER Primary Care Provider [phone] Reason for Visit Reason Onset Date Comments Orders 06/02/2014 Encounter Details Date Type Department Care Team Description 06/02/2014 Telephone [facility] Eag Selma Anthony, Orders 1440 [facility] CATALYTIC CASE OPERATOR INDUCTION COORDINATION ENGINEER [place] [phone] 1033 [facility] [phone] [facility] [...] How often do you attend caodaism or druze Patient refused 08/08/2019 services? Do [...] effects to this medication. Selma Good [facility] SIFICATION OPERATOR Telephone Encounter - Rossana Adams - 06/02/2014 12:[address] orders for upcoming lab appointment on 06/08/14 Thank you SIFICATION OPERATOR documented in this encounter Plan of Treatment Not on filedocumented as of this encounter Results Lipid panel reflex to direct LDL (06/08/2014 8:40 AM EMULSIFICATION OPERATOR) athologist Signature Cholesterol 197 <200 mg/dL [facility] Comment: LDL Cholesterol is the primary guide to therapy. The NCEP recommends further evaluation of: patients with cholesterol greater than 200 mg/dL if additional risk facto rs are present, cholesterol greater than 240 mg/dL, triglycerides greater than 1 50 mg/dL, or HDL less than 40 mg/dL. Triglycerides 77 0 - 150 mg/dL [facility] Comment: Fasting specimen HDL Cholesterol 57 >50 mg/dL [facility] LDL Cholesterol Calculated 125 0 - 129 mg/dL [facility] Comment: LDL Cholesterol is the primary guide to therapy: LDL-cholesterol goal in high risk patients is <100 mg/dL and in very high risk patients is <70 mg/dL. VLDL-Cholesterol 15 0 - 30 mg/dL [facility] Cholesterol/HDL Ratio 3.5 0.0 - 5.0 [facility] Specimen Anatomical Collection Method Collection Time Receive d Time (Source) Location / / Volume Laterality Blood specimen 06/08/2014 8:40 AM 014 8:45 (specimen) EMULSIFICATION OPERATOR AM EMULSIFICATION OPERATOR Selma Good CATALYTIC CASE OPERATOR INDUCTION COORDINATION ENGINEER LAB - BLOOD ORDERABLES Performing Organization Address City/State/ZIP Code Phon e Number [facility] [address] [place] [address] [facility] [address] [place], [place] [address] documented in this encounter Visit Diagnoses Diagnosis Hyperlipidemia LDL goal <100 - Primary Other and unspecified hyperlipidemia documented in this encounter Care Teams Lieutenant Colonel Relationship Specialty Start Date End Date Selma Good, SEAN INDUCTION COORDINATION ENGINEER PCP - General 04/09/08 04/07/15 [address] [place] [address] documented as of this encounter
--- OUTSIDE RECORDS SUMMARY | 2022-05-09 13:33 | XMS_ITS | Encounter Summary ---
:1965 Author Organization [facility] Address [address] [place] [address] Care Team Providers Name Role Phone Selma Good APRN SWIMMING POOL INSTALLER Primary Care Provider [phone] Reason for Visit Reason Onset Date Comments Panel Management 08/11/2014 Encounter Details Date Type Department Care Team Description 08/11/2014 Telephone [facility] Eag Selma Anthony Panel Management 14[address] [employer] [facility] J, SEAN SWIMMING POOL INSTALLER [place] [phone] 6621 [facility] [phone] [facility] [place] [address] (Wo rk) Social [...] How often do you attend jewish or anglican Patient refused 08/08/2019 services? Do [...] Review Date of last visit with a [facility] provider: KATHY on 06-09-14. Date of next visit with a [facility] provider: None. Problem List Patient Active Problem [...] Indicate fasting or not fasting. Charlotte Mark CMA(AALA) L RECOVERY SPECIALIST documented in this encounter Plan of Treatment Not on filedocumented as of this encounter Visit Diagnoses Not on filedocumented in this encounter Care Teams Data Security Analyst Relationship Specialty Start Date End Date Selma Good APRN SWIMMING POOL INSTALLER PCP - General 04/09/08 04/07/[address] [facility] [place] [id number] documented as of this encounter
--- OUTSIDE RECORDS SUMMARY | 2022-05-09 13:33 | XMS_ITS | Encounter Summary ---
:1965 Author Organization [facility] Address [address] [place] [address] Care Team Providers Name Role Phone Selma Good APRN [facility] Primary Care Provider Reason for Visit Reason Comments Anxiety Depression Encounter Details Date Type Department Care Team Description 06/09/2014 Office Visit [facility] Florentino, Insomnia (P rimary Dx); Pino Angeles APRN Migraine headache; [address] [employer] [facility] Type 2 diabetes, HbA1C goal < 7% (H); [place] [phone] 3304 [facility] Hyperlipidemia LDL goal <100 ; [phone] [facility] Hypertension goal BP (blood pressure) < 130/80; [place] [address] Major depressive disorder, recurrent (H) ; [phone] Anxiety; (Work) OME (otitis media with effusion), [...] How often do you attend sikhism or lutheran Patient refused 08/08/2019 services? Do [...] Comments Blood Pressure 90/66 06/09/2014 9:31 AM STUDIO DATA ANALYST Pulse 80 06/09/2014 9:31 AM STUDIO DATA ANALYST Temperature 36 ??C (96.8 ??F) 06/09/2014 9:31 AM STUDIO DATA ANALYST Respiratory Rate 16 06/09/2014 9:31 AM STUDIO DATA ANALYST Oxygen Saturation - - Inhaled Oxygen Concentration - - Weight 68.7 kg (151 lb 6.4 oz) 06/09/2014 9:31 AM STUDIO DATA ANALYST Height - - Body Mass Index 27.69 10/27/2013 8:53 AM CDT documented in this encounter Patient Instructions Patient InstructionsSelma Good NP - 06/09/2014 9:51 AM STUDIO DATA ANALYST Restart the simvastatin and we can repeat this lab in about 2 months. Your BP is excellent today so you can continue to be OFF lisinopril. Let's increase the amitriptyline to a total of 40 mg at bedtime. RETURN TO CLINIC 1 month. IO DATA ANALYST documented in this encounter Progress Notes Selma [...] HELGA-7 SCORE 04/29/2014 Total Score 5 PHQ-9 Japanese PHQ-9 Any Language GAD7 At last visit, [...] Disease) ??? Obesity ??? Family History of [place] (Myocardial Infarction) ??? Cervical Pain ??? Insomnia [...] Relation Age of Onset ??? Cardiovascular Mother [place] age 72 ??? Cardiovascular Father [place] early 40s, subsequent bipass ??? Diabetes Mother [...] TO CLINIC 1 month. Selma Good NP [facility] IO DATA ANALYST documented in this encounter Nursing Notes Charlotte [...] using cuff size: regular Charlotte Mark CMA(AAMA) IO DATA ANALYST documented in this encounter Plan of [...] ral documented in this encounter Care Teams Lease Administration Supervisor Relationship Specialty Start Date End Date Danilo-Selma Mccoy, CREDIT OPERATIONS SPECIALIST ANTHROPOLOGY AND ARCHEOLOGY INSTRUCTOR PCP - General 04/09/08 04/07/15 3305 [facility] [place] [id number] documented as of this encounter
--- OUTSIDE RECORDS SUMMARY | 2022-05-09 13:33 | XMS_ITS | Encounter Summary ---
:1965 Author Organization [facility] Address [address] [place] [address]. [place] [address] Care Team Providers Name Role Phone Selma Good APRN FREIGHT TRUCKER Primary Care Provider [phone] Encounter Details Date Type Department Care Team Description 08/10/2014 Orders Only [facility] Eag an Type 2 diabetes, HbA1C goal < 7% (H); [address] [employer] Hyperlipidemia LDL goal <100 ; [place] [phone] Hypertension goal BP (blood pressure) < 130/80 [...] often do you attend roman catholic or mormon Patient refused 08/08/2019 services? Do [...] 2 diabete s, Results for this QUANTITATIVE PANTOGRAPH MACHINE OPERATOR HbA1C goal < 7% (H) procedure are in Hyperlipidemia LDL the [facility] ts goal <100 section. Hypertension goal BP (blood pressure) < 130/80 LIPID REFLEX TO Routine 08/10/2014 8:56 AM Type 2 diabetes, Re sults for this DIRECT LDL PANEL PANTOGRAPH MACHINE OPERATOR HbA1C goal < 7% (H) procedure are in Hyperlipidemia LDL the [facility] ts goal <100 section. Hypertension goal BP (blood pressure) < 130/80 documented in this encounter Results Microalbumin quantitative random urine (08/10/2014 8:57 AM PANTOGRAPH MACHINE OPERATOR) [facility] Method Time Signature Creatinine 41 mg/dL [facility] Urine [facility] Albumin Urine <5 mg/L [facility] mg/L [facility] Albumin Urine Unable to calculate due to low value 0 - 25 [facility] mg/g Cr Effective 01/07/2014, the re ference range for this assay has changed to reflect mg/g Cr [facility] new instrumentation/methodology. HOSPITAL Specimen Anatomical Collection Method Collection Time Receive d Time (Source) Location / / Volume Laterality Urine specimen 08/10/2014 8:57 AM 015 8:58 (specimen) PANTOGRAPH MACHINE OPERATOR AM PANTOGRAPH MACHINE OPERATOR Selma Good APRN FREIGHT TRUCKER LAB - URINE ORDERABLES Performing Organization Address City/State/ZIP Code Phon e Number M [facility] [address] [place] [address] [facility] [address] [place] [address] [facility] [address] [place] [address] [facility] Lipid panel reflex to direct LDL (08/10/2014 8:56 AM PANTOGRAPH MACHINE OPERATOR) P athologist Signature Cholesterol 153 <200 mg/dL [facility] Comment: LDL Cholesterol is the primary guide to therapy. The NCEP recommends further evaluation of: patients with cholesterol greater than 200 mg/dL if additional risk facto rs are present, cholesterol greater than 240 mg/dL, triglycerides greater than 1 50 mg/dL, or HDL less than 40 mg/dL. Triglycerides 79 0 - 150 mg/dL [facility] HDL Cholesterol 61 >50 mg/dL [facility] LDL Cholesterol Calculated 76 0 - 129 mg/dL [facility] Comment: LDL Cholesterol is the primary guide to therapy: LDL-cholesterol goal in high risk patients is <100 mg/dL and in very high risk patients is <70 mg/dL. VLDL-Cholesterol 16 0 - 30 mg/dL [facility] Aleyda [facility] Cholesterol/HDL Ratio 2.5 0.0 - 5.0 [facility] Specimen Anatomical Collection Method Collection Time Receive d Time (Source) Location / / Volume Laterality Blood specimen 08/10/2014 8:56 AM 015 8:57 (specimen) PANTOGRAPH MACHINE OPERATOR AM PANTOGRAPH MACHINE OPERATOR Selma Good APRN, CNP LAB - BLOOD ORDERABLES Performing Organization Address City/State/ZIP Code Phon e Number [facility] [address] [place] [address] documented in this encounter Visit Diagnoses Diagnosis Type 2 diabetes, HbA1c goal < 7% (H) Type II or unspecified type diabetes sukhdev litus without mention of complication, not stated as uncontrolled Hyperlipidemia LDL goal <100 Other and unspecified hyperlipidemia Hypertension goal BP (blood pressure) < 130/80 Unspecified essential hypertension documented in this encounter Care Teams Storm Window Installer Relationship Specialty Start Date End Date Selma Good APRN CNP PCP - General 04/09/08 04/07/15 7905 [facility] DAV[place] [id number] documented as of this encounter
--- OUTSIDE RECORDS SUMMARY | 2022-05-09 13:34 | XMS_ITS | Encounter Summary ---
:1965 Author Organization [facility] Address [address] [place] [address]. [place] [address] Care Team Providers Name Role Phone Selma Good APRN BUILDING TRADES TEACHER Primary Care Provider [phone] Encounter Details Date Type Department Care Team Description 06/05/2012 Orders Only [facility] Eag an Type 2 diabetes, HbA1C goal < 7% (H); 1440 [facility] Hyperlipidemia LDL goal <100 [place] [phone] Social History Tobacco Use Types Packs/Day Years [...] How often do you attend methodist or anglican Patient refused 08/08/2019 services? Do [...] diabete s, Results for this QUANTITATIVE FRONT DESK ASSISTANT HbA1C goal < 7% (H) procedur e are in the results section. LIPID REFLEX TO DIRECT Routine 06/05/2012 7:48 AM Type 2 diabe shirley, Results for this LDL PANEL FRONT DESK ASSISTANT HbA1C goal < 7% (H) procedure are in Hyperlipidemia LDL the resul ts goal <100 section. HEMOGLOBIN A1C Routine 06/05/2012 7:48 AM Type 2 diabetes, Res ults for this FRONT DESK ASSISTANT HbA1C goal < 7% (H) procedur e are in the results section. COMPREHENSIVE Routine 06/05/2012 7:48 AM Type 2 diabetes, Resu lts for this METABOLIC PANEL FRONT DESK ASSISTANT HbA1C goal < 7% (H) proce dure are in the results section. documented in this encounter Results (ABNORMAL) Comprehensive metabolic panel (06/05/2012 7:48 AM FRONT DESK ASSISTANT) athologist Signature Sodium 141 133 - 144 [place] mmol/L [facility] Potassium 4.1 3.4 - 5.3 [facility] mmol/L [facility] Chloride 103 94 - 109 [place] mmol/L [facility] Carbon Dioxide 22 20 - 32 [facility] mmol/L [facility] Anion Gap 16 6 - 17 [facility] mmol/L [facility] Glucose 123 (H) 60 - 99 [place] mg/dL [facility] Urea Nitrogen 16 5 - 24 [facility] mg/dL [facility] Creatinine 0.75 0.52 [facility] 1.[facility] mg/dL [facility] GFR Estimate 82 >60 [place] mL/min/1.7 [facility] m2 LAB GFR Estimate If >90 >60 [facility] Black mL/min/1.7 [facility] m2 LAB Calcium 9.7 8.5 - 10.4 [facility] mg/dL [facility] Bilirubin Total 0.6 0.2 - 1.3 [facility] mg/dL [facility] Albumin 4.4 3.9 - 5.1 [facility] g/dL [facility] Comment: Reference range changed on 02/10. Protein Total 7.5 6.8 - 8.8 g/dL [facility] Comment: As of 07, reference range reflects plasma specimen type. Alkaline Phosphatase 83 40 - 150 U/L [facility] ALT 28 0 - 50 U/L [facility] AST 19 0 - 45 U/L [facility] Specimen Anatomical Collection Method Collection Time Receive d Time (Source) Location / / Volume Laterality Blood specimen 06/05/2012 7:48 AM 012 7:53 (specimen) FRONT DESK ASSISTANT AM FRONT DESK ASSISTANT Selma Good APRN BUILDING TRADES TEACHER LAB - BLOOD ORDERABLES Performing Organization Address City/State/ZIP Code Phon e Number [facility] [address] [place] [address] [facility] Microalbumin quantitative, random urine (06/05/2012 7:48 AM FRONT DESK ASSISTANT) athologist Signature Creatinine 208 mg/dL [facility] Albumin Urine 13 mg/L [facility] mg/L [place] Albumin Urine 6.25 0 - 25 [facility] mg/g Cr mg/g Cr [facility]AMP[facility] LAB[facility] Specimen Anatomical Collection Method Collection Time Receive d Time (Source) Location / / Volume Laterality Urine specimen 06/05/2012 7:48 AM 012 7:53 (specimen) FRONT DESK ASSISTANT AM FRONT DESK ASSISTANT Selma Good APRN, CNP LAB - URINE ORDERABLES Performing Organization Address City/[facility]/ZIP Code Phon e Number [facility] [address] [place] [address] [facility] (ABNORMAL) Lipid panel reflex to direct LDL (06/05/2012 7:48 AM FRONT DESK ASSISTANT) athologist Signature Cholesterol 126 0 - 200 [facility] mg/dL CLINIC LAB Comment: LDL Cholesterol is the primary guide to therapy. The NCEP recommends further evaluation of: patients with cholesterol greater than 200 mg/dL if additional risk facto rs are present, cholesterol greater than 240 mg/dL, triglycerides greater than 1 50 mg/dL, or HDL less than 40 mg/dL. Triglycerides 84 0 - 150 mg/dL [facility] HDL Cholesterol 43 (L) 50 - 110 mg/dL [facility] LDL Cholesterol Calculated 66 0 - 129 mg/dL [facility] Comment: LDL Cholesterol is the primary guide to therapy: LDL-cholesterol goal in high risk patients is <100 mg/dL and in very high risk patients is <70 mg/dL. VLDL-Cholesterol 17 0 - 30 mg/dL [facility] Cholesterol/HDL Ratio 2.9 0.0 - 5.0 [facility] Specimen Anatomical Collection Method Collection Time Receive d Time (Source) Location / / Volume Laterality Blood specimen 06/05/2012 7:48 AM 012 7:53 (specimen) FRONT DESK ASSISTANT AM FRONT DESK ASSISTANT Selma Good APRN, CNP LAB - BLOOD ORDERABLES Performing Organization Address City/State/ZIP Code Phon e Number [facility] [address] [place] [address] [facility] Hemoglobin A1c (06/05/2012 7:48 AM FRONT DESK ASSISTANT) athologist Signature Hemoglobin A1C 5.8 4.3 - 6.0 [facility] % CLINIC LAB Specimen Anatomical Collection Method Collection Time Receive d Time (Source) Location / / Volume Laterality Blood specimen 06/05/2012 7:48 AM 012 7:53 (specimen) FRONT DESK ASSISTANT AM FRONT DESK ASSISTANT Selma Good APRN, CNP LAB - BLOOD ORDERABLES Performing Organization Address City/State/ZIP Code Phon e Number [place] [id number] [facility] [place] [address] [facility] documented in this encounter Visit Diagnoses Diagnosis Type 2 diabetes, HbA1c goal < 7% (H) Type II or unspecified type diabetes sukhdev litus without mention of complication, not stated as uncontrolled Hyperlipidemia LDL goal <100 Other and unspecified hyperlipidemia documented in this encounter Care Teams Test Engine Mechanic Relationship Specialty Start Date End Date Selma Good APRN CNP PCP - General 04/09/08 04/07/15 8593 [facility] [place] [address] documented as of this encounter
--- OUTSIDE RECORDS SUMMARY | 2022-05-09 13:34 | XMS_ITS | Encounter Summary ---
:1965 Author Organization [place] Address [address] [place] [address] Care Team Providers Name Role Phone Selma Good APRN SCOOP OPERATOR Primary Care Provider [phone] Reason for Visit Reason Comments UTI Recheck Medication Encounter Details Date Type Department Care Team Description 02/07/2013 Office Visit [facility] Florentino UTI (lower urinary tract infection) (Primary Dx); Pino Angeles APRN Dysuria; [address] SCOOP OPERATOR Nail fungus; [place] [phone] 1340 [facility] Hypertension goal BP (blood pressure) < 130/80; [phone] [facility] [place] [address] Social History Tobacco Use Types Packs/Day [...] How often do you attend rastafarian or yarsanism Patient refused 08/08/2019 services? Do [...] underwear and pantyhose every day. Published by [employer]. This content is reviewed periodically and is subject to change as new health information becomes available. The information is intended to inform and educate and is not a replacement for medical evaluation, advice, diagnosis or treatment by a healthcare professional. Developed by Edith Felix RN, AR, and [facility]. ? 2009 [facility] and/or its affiliates. All Rights Reserved. [...] Disease) ??? Obesity ??? Family History of OR (Myocardial Infarction) ??? Cervical Pain ??? Insomnia [...] Relation Age of Onset ??? Cardiovascular Mother OR age 72 ??? Cardiovascular Father OR early 40s, subsequent bipass ??? Diabetes Mother [...] underwear and pantyhose every day. Published by [employer]. This content is reviewed periodically and is subject to change as new health information becomes available. The information is intended to inform and educate and is not a replacement for medical evaluation, advice, diagnosis or treatment by a healthcare professional. Developed by Edith Felix RN, DAVID, and [employer]. ? 2009 [employer] and/or its affiliates. All Rights Reserved. Copyright ?? Clinical Reference Systems 2010 Selma Good NP, SHUTTLE REPAIRER [facility] .soapo documented in this encounter [...] Component Value Ref Test Analysis Performed At [employer] Range Method Time Signature Specimen Urine [facility] LAB Culture Micro 10,000 to 50,000 colonies/mL Mixed gram negative and positive jaylen [facility] Multiple species present, probable perineal contamination. MICROBIOLOGY Susceptibility testing not routinely done Micro Report FINAL 02/09/2013 [facility] Status MICROBIOLOGY Specimen Anatomical Collection Method Collection Time Receive d Time (Source) Location / / Volume Laterality Urine specimen 02/07/2013 4:40 PM 013 4:45 (specimen) CDT PM CDT Slema Good APRN SCOOP OPERATOR LAB - MICRO GENERAL ORD ERABLES Performing Organization Address City/State/ZIP Code Phon e Number [address] [address] [facility] [address] [place] [address] [facility] MICROBIOLOGY (ABNORMAL) Urine Microscopic (02/07/2013 3:52 PM CDT) [facility] Method Time Signature WBC Urine 5-10 (A) 0 - 2 [place] /[facility] LAB RBC Urine 2-5 (A) 0 - 2 [place] /[facility] LAB Squamous Few FEW /LPF [place] Epithelial /LPF [facility] Urine LAB Bacteria Urine Few (A) NEG /HPF [facility] Mucous Urine Present (A) NEG /LPF [facility] Specimen Anatomical Collection Method Collection Time Receive d Time (Source) Location / / Volume Laterality 02/07/2013 3:52 PM 3 3:57 CDT PM CDT Selma Good APRN, CNP LAB - URINE ORDERABLES Performing Organization Address [facility]/ZIP [facility] Phon e Number [facility] [address] [place] [address] [facility] [address] [place] [address] [phone] (ABNORMAL) *UA reflex to Microscopic and Culture (02/07/2013 3:52 PM CDT) [facility] Method Time Signature Color Urine Yellow [facility] Appearance Urine Clear [facility] Glucose Urine Negative NEG mg/dL [facility] Bilirubin Urine Negative NEG [facility] Ketones Urine Negative NEG mg/dL [facility] Specific [place] 1.010 1.003 - [place] Urine 1.035 [facility] LAB Blood Urine Moderate (A) NEG [facility] pH Urine 7.0 5.0 - 7.0 [place] pH [facility] LAB Protein Albumin Negative NEG mg/dL [place] Urine [facility] LAB Urobilinogen 0.2 0.2 - 1.0 [place] Urine EU/dL [facility] LAB Nitrite Urine Negative NEG [facility] Leukocyte Trace (A) NEG [place] Esterase Urine [facility] LAB Source Midstream [place] Urine [facility] LAB Specimen Anatomical Collection Method Collection Time Receive d Time (Source) Location / / Volume Laterality Urine specimen 02/07/2013 3:52 PM 013 3:57 (specimen) CDT PM CDT Selma Good APRN, CNP LAB - URINE ORDERABLES Performing Organization Address City/State/ZIP Code Phon e Number [facility] 1440 [facility] [place] [address] [phone] [facility] 1440 [facility] [place] [phone] documented in this encounter Visit Diagnoses Diagnosis UTI (lower urinary tract infection) - Pr imary Urinary tract infection, site not specif ied Dysuria Nail fungus Dermatophytosis of nail Hypertension goal BP (blood pressure) < 130/80 Unspecified essential hypertension Fibromyalgia Mylagia and myositis, unspecified documented in this encounter Care Teams Customs Broker Relationship Specialty Start Date End Date Selma Good, FIRE EQUIPMENT INSPECTOR HELPER SCOOP OPERATOR PCP - General 04/09/08 04/07/15 3655 [facility] [place] [address] documented as of this encounter
--- OUTSIDE RECORDS SUMMARY | 2022-05-09 13:34 | XMS_ITS | Encounter Summary ---
:1965 Author Organization [facility] Address [address] [place] [address] Care Team Providers Name Role Phone Selma Good APRN SHEET METAL FORMER Primary Care Provider [phone] Reason for Visit Reason Comments Ultrasound Encounter Details Date Type Department Care Team Description 10/27/[address] [facility] Women's Dc norrhagia (Primary Dx) Clinic [place] [address] [place] [address] Social History Tobacco Use [...] How often do you attend sikhism or hindu Patient refused 08/08/2019 services? Do [...] study. Christy Ibarra M.D. Narrative 10/27/2011 [facility] Obstetrics & Gynecology [address] [facility] [place] [address] ULTRASOUND - [facility] ADMINISTRATOR Referring MD: Diego Nelson MD Primary Clinic: [facility] Ultrasound disk#: [id number] CLINICAL INFORMATION Indications for ultrasound: Bleeding/Menses - [...] menstruation documented in this encounter Care Teams Home Companion Relationship Specialty Start Date End Date Selma Good APRN SHEET METAL FORMER PCP - General 04/09/08 04/07/15 7355 [facility] [place] [address] documented as of this encounter
--- OUTSIDE RECORDS SUMMARY | 2022-05-09 13:34 | XMS_ITS | Encounter Summary ---
:1965 Author Organization [place] Address [address] [place] [address] Care Team Providers Name Role Phone Selma Good APRN CRM CONSULTANT Primary Care Provider [phone] Reason for Visit Reason Comments RECHECK Encounter Details Date Type Department Care Team Description 12/05/2011 Office Visit [facility] Florentino, Headaches, migraine (Primary Dx); Pino Angeles APRN Cervical pain [address] [place] [phone] 8464 [facility] [phone] [facility] [place] [address] Social History Tobacco [...] How often do you attend congregational or worship Patient refused 08/08/2019 services? Do [...] Cervicalgia documented in this encounter Care Teams Pbx Operator Relationship Specialty Start Date End Date Selma Good APRN CRM CONSULTANT PCP - General 04/09/08 04/07/15 3302 [facility] [place] [address] documented as of this encounter
--- OUTSIDE RECORDS SUMMARY | 2022-05-09 13:34 | XMS_ITS | Encounter Summary ---
:1965 Author Organization [facility] Address [address] [place] [address]. [place] [address] Care Team Providers Name Role Phone Selma Angelo APRN [facility] Primary Care Provider Reason for Referral Referral not Required - Closed Specialty Diagnoses / Procedures Referred By Contact Refer red To Contact Diagnoses Upper back pain Selma Angelo, [facility] JOURNEYMAN [facility] MED [address] ADMIN OFFICE [place] [address] [place] [address] Phone: [phone] Referral ID Status Reason Start Date Expiration Date Visits Requ ested Visits Authorized [id number] Closed 05/05/2011 11/01/2011 1 1 TEACHER Reason for Visit Reason Comments Physical Needs refill on medications but has enough until mid May Previsit Encounter Details Date Type Department Care Team Description 05/05/2011 Office Visit [facility] Lilo Angelo gen eral medical examination at a health care facility (Primary Dx); Pino Angeles APRN Hypertension goal BP (blood pressure) < 130/80; 1440 [facility] Type 2 diabetes, HbA1C goal < 7% (H); [place] [phone] 3307 [facility] Hyperlipidemia LDL goal <100 ; [phone] [facility] Migraine headache; [place] [address] GERD (gastroesophageal reflux disease); [phone] Vaginal atrophy ; (Work) Cervical pain; [phone] Upper back pain ; (Fax) Seasonal allerg [...] Comments Blood Pressure 98/56 05/05/2011 8:38 AM PBX TEACHER Pulse 72 05/05/2011 8:38 AM PBX TEACHER Temperature - - Respiratory Rate - - Oxygen Saturation - - Inhaled Oxygen Concentration - - Weight 73.5 kg (162 lb) 05/05/2011 8:38 AM PBX TEACHER Height - - Body Mass Index 29.63 08/26/2010 2:29 PM CDT documented in this encounter Patient Instructions Patient InstructionsDanilo-Selma Mccoy NP - 05/05/2011 7:57 AM PBX TEACHER Return to clinic in 6 months (november) [...] a year for an exam and cleaning. TEACHER documented in this encounter Progress Notes Selma [...] pain. Neck pain: She did go to [facility], which is controlled with gabapentin without relief of pain. She would like to come off this. The pain is stable and he would opt to not do any intervention at this ttime. L hip/back pain: Stable, but moderate. She does have a hx of SI joint fusion surgery, but [facility] said it looks as if [...] Maintenance. All Histories reviewed and updated in [facility]. ROS: C: NEGATIVE for fever, chills, [...] a year for an exam and cleaning. TEACHER documented in this encounter Plan of Treatment Scheduled Referrals Name Type Priority Associated Diagnoses Order S katya BARRIGA PT, HAND, AND Referral Routine Upper back pain Ordered : 05/05/2011 CHIROPRACTIC REFERRAL documented as of this encounter Procedures Procedure Name Priority Date/Time Associated Diagnosis Comme nts PAP IMAGED THIN Routine 05/05/2011 8:39 AM Routine general Res ults for this LAYER SCREEN PBX TEACHER medical examination procedur e are in at a health care the results facility section. WET PREPARATION Routine 05/05/2011 8:39 AM Vaginal atrophy Res ults for this PBX TEACHER procedure are i n the results section. documented in this encounter Results Wet prep (05/05/2011 8:39 AM PBX TEACHER) [facility] Method Time Signature Specimen Vagina [place] Description [facility] Wet Prep No yeast seen [facility] No clue cells seen [facility] No Trichomonas seen LAB Micro Report FINAL [place] Status 05/05/2011 [facility] Specimen Anatomical Collection Method Collection Time Receive d Time (Source) Location / / Volume Laterality 05/05/2011 8:39 AM 1 8:42 PBX TEACHER AM PBX TEACHER Selma Angelo WELDER JOURNEYMAN ASSISTANT TEACHER LAB - MICRO GENERAL ORD ERABLES Performing Organization Address City/State/ZIP Code Phon e Number [facility] [address] [place] [address] [address] [facility] PAP IMAGED THIN LAYER SCREEN (05/05/2011 8:39 AM PBX TEACHER) Component Value Ref Test Analysis Performed At [facility] Range Method Time Signature PAP NIL COPATH Copath Report COPATH Patient Name: MEGAN CHOI MR#: [id number] Specimen #: [id number] Collected: 05/05/2011 Received: 05/08/2011 Reported: 05/09/2011 14:02 [...] by: TARIQ Mohamud(ASCP) Processed and screened at [facility] CLINICAL HISTORY: LMP: 04/09/2011 Previous Other-NIL EM>40 Date of Last Pap: 04/13/2008, Papanicolaou Test Limitations: ??Cervical cytology is a scre ening test with limited sensitivity; regular screening is critical for cancer prevention; Pap tests are primarily effective for the diagnosis/prevention of squamous cell carcinoma, not adenoca rcinomas or other cancers. TESTING LAB LOCATION: [facility] [address] [place], [place] ??[phone] COLLECTION SITE: Client: ??[facility] Location: EA[facility] (R) Specimen (Source) Anatomical Collection Method Collection Time Re ceived Time Location / / Volume Laterality Cytologic 05/05/2011 8:39 05/08/2011 material AM PBX TEACHER 10:11 AM PBX TEACHER (specimen) Selma Angelo APRN, CNP LAB - [...] unspecified documented in this encounter Care Teams Milled Rice Broker Relationship Specialty Start Date End Date Selma Angelo APRN CNP PCP - General 04/09/08 04/07/15 1735 [facility] [place] [address] documented as of this encounter
--- OUTSIDE RECORDS SUMMARY | 2022-05-09 13:34 | XMS_ITS | Encounter Summary ---
:1965 Author Organization [facility] Address [address] [place] [address] Care Team Providers Name Role Phone Selma Good APRN COIL WINDING SUPERVISOR Primary Care Provider [phone] Reason for Visit Reason Comments Hospital F/U Headache would like med Pain Overall whole body pain Encounter Details Date Type Department Care Team Description 11/15/2011 Office Visit [facility] Florentino, LBP (low ba ck pain) (Primary Dx); Pino Angeles APRN Migraine; [address] COIL WINDING SUPERVISOR Cervical pain [place] [phone] [facility] [phone] [facility] [place] [id number] Social History Tobacco Use Types Packs/Day Years [...] How often do you attend congregation or sabianist Patient refused 08/08/2019 services? Do [...] [723.1L] and she did see neurology, dr. howadr and she was told she was not [...] Cervicalgia documented in this encounter Care Teams Mercury Recoverer Relationship Specialty Start Date End Date Selma Good, SITE SURVEYOR COIL WINDING SUPERVISOR PCP - General 04/09/08 04/07/15 7018 [facility] [place] [address] documented as of this encounter
--- OUTSIDE RECORDS SUMMARY | 2022-05-09 13:34 | XMS_ITS | Encounter Summary ---
:1965 Author Organization [place] Address [address] [place] [address] Care Team Providers Name Role Phone Selma Good APRN MINE WEDGE SAWYER Primary Care Provider [phone] Reason for Visit Reason Comments Diabetes Encounter Details Date Type Department Care Team Description 12/10/2012 Office Visit [facility] Florentino, Type 2 diab etes, HbA1C goal < 7% (H) (Primary Dx); Pino Angeles APRN Major depressive disorder, r ecurrent (H); [address] [facility] Hyperlipidemia LDL goal <100; [place] [phone] 7237 [facility] Hypertension goal BP (blood pressure) < 130/80; [phone] [facility] [place] [address] Social History Tobacco Use [...] non-fasting labs in May. Selma Good NP, CSO [facility] documented in this [...] unspecified documented in this encounter Care Teams Histology Teacher Relationship Specialty Start Date End Date Selma Good, BALLOON SELLER MINE WEDGE SAWYER PCP - General 04/09/08 04/07/[address] [facility] [address] [place], [place] [address] documented as of this encounter
--- OUTSIDE RECORDS SUMMARY | 2022-05-09 13:34 | XMS_ITS | Encounter Summary ---
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
--- OUTSIDE RECORDS SUMMARY | 2022-05-09 13:34 | XMS_ITS | Encounter Summary ---
:1965 Author Organization [facility] Address [address] [place] [address]. [place] [address] Care Team Providers Name Role Phone Selma Good APRN E LEARNING MANAGER Primary Care Provider [phone] Reason for Visit Reason Comments UTI Or yeast symptoms Encounter Details Date Type Department Care Team Description 07/27/2011 Office Visit [facility] Vanda Guerrero Vaginal infection; Pino Toribio MD UTI (urinary tract infection); [address] [employer] [address] [employer] 3305 [facility] Vaginal itching [place] [address] [facility] [phone] [place] [address] (Wo rk) Social History [...] How often do you attend lutheran or yarsani Patient refused 08/08/2019 services? Do [...] Comments Blood Pressure 110/65 07/27/2011 9:40 AM ROOF DESIGNER Pulse 68 07/27/2011 9:40 AM ROOF DESIGNER Temperature - - Respiratory Rate - - Oxygen Saturation - - Inhaled Oxygen Concentration - - Weight 72.6 kg (160 lb) 07/27/2011 9:40 AM ROOF DESIGNER Height 157.5 cm (5' 2) 07/27/2011 9:40 AM ROOF DESIGNER Body Mass Index 29.26 07/27/2011 9:40 AM ROOF DESIGNER documented in this encounter Patient Instructions Patient InstructionsVanda Guerrero MD - 07/27/2011 10:02 AM CST Bladder infection - push fluids - start taking bactrim twice daily for the next 3 days Vaginal itching - normal wet prep today - trial of steroid cream - use twice daily - make appt to see retrieval specialist again DESIGNER documented in this encounter Progress Notes Vanda [...] Ketones Urine Low: NEG mg/dL Negative Specific [place] Urine 1.003 - 1.035 1.025 Blood Urine [...] twice daily - make appt to see retrieval specialist again Vanda Guerrero MD Internal Medicine - Pediatrics DESIGNER documented in this encounter Nursing Notes 07/27/2011 9:30 AM CST >> KEYANNA WOODWARDSALAS [facility] Jul 27, 2011 9:43 AM Patient [...] (urinary tract Resu lts for this AM ROOF DESIGNER infection) procedure are i n the results section. URINE MICROSCOPIC Routine 07/27/2011 9:37 AM Resu lts for this ROOF DESIGNER procedure are i n the results section. UA MACROSCOPIC WITH Routine 07/27/2011 9:37 AM UTI (urinary tr act Results for this REFLEX TO MICROSCOPIC ROOF DESIGNER infection) proced ure are in AND CULTURE the results section. WET PREPARATION Routine 07/27/2011 9:33 AM Vaginal infection R esults for this ROOF DESIGNER procedure are i n the results section. documented in this encounter Results Urine culture (07/27/2011 10:03 AM ROOF DESIGNER) Component Value Ref Test Analysis Performed [...] Urine specimen 07/27/2011 10:03 2 (specimen) AM ROOF DESIGNER 10:06 AM ROOF DESIGNER Vanda Guerrero MD LAB - MICRO GENERAL ORDERABL ES Performing Organization Address City/State/ZIP Code Phon e Number [facility] [address] [place], [place] [id number] [place] [address] [facility] MICROBIOLOGY (ABNORMAL) Urine Microscopic (07/27/2011 9:37 AM ROOF DESIGNER) Analysis Performed At Patho logist Time Signature WBC Urine 5-10 (A) 0 - 2 /HPF [facility] RBC Urine O - 2 0 - 2 /HPF [facility] Squamous Few FEW /LPF [facility] Epithelial /[facility] Urine LAB Bacteria Urine Few (A) NEG /HPF [facility] Specimen Anatomical Collection Method Collection Time Receive d Time (Source) Location / / Volume Laterality 07/27/2011 9:37 AM 2 9:39 ROOF DESIGNER AM ROOF DESIGNER Vanda Guerrero MD LAB - URINE ORDERABLES Performing Organization Address [facility]/ZIP [facility] Phon e Number [address] [address] [facility] (ABNORMAL) *UA macro reflex to micro and culture (07/27/2011 9:37 AM ROOF DESIGNER) [facility] Method Time Signature Color Urine Yellow [facility] Appearance Urine Clear [facility] Glucose Urine 250 (A) NEG mg/dL [facility] Bilirubin Urine Negative NEG [facility] Ketones Urine Negative NEG mg/dL [facility] Specific [place] 1.025 1.003 - [place] Urine 1.035 [facility] Blood Urine Trace (A) NEG [facility] pH Urine 5.0 5.0 - 7.0 [place] pH [facility] Protein Albumin Negative NEG mg/dL [place] Urine [facility] Urobilinogen 0.2 0.2 - 1.0 [place] Urine EU/dL [facility] Nitrite Urine Negative NEG [facility] Leukocyte Negative NEG [place] Esterase Urine [facility] Source Midstream [place] Urine [facility] Specimen Anatomical Collection Method Collection Time Receive d Time (Source) Location / / Volume Laterality Urine specimen 07/27/2011 9:37 AM 012 9:39 (specimen) ROOF DESIGNER AM ROOF DESIGNER Vanda Guerrero MD LAB - URINE ORDERABLES Performing Organization Address City/[facility]/ZIP Code Phon e Number [facility] [address] [place] [address] [facility] Wet prep (07/27/2011 9:33 AM ROOF DESIGNER) [facility] Method Time Signature Specimen Urine [place] Description [facility] Wet Prep No Trichomonas seen [facility] No clue cells seen [facility] No yeast seen LAB Micro Report FINAL [facility] Status 07/27/2011 [facility] Specimen Anatomical Collection Method Collection Time Receive d Time (Source) Location / / Volume Laterality 07/27/2011 9:33 AM 2 9:35 ROOF DESIGNER AM ROOF DESIGNER Vanda Guerrero MD LAB - MICRO GENERAL ORDERABL ES Performing Organization Address City/State/ZIP Code Phon e Number [facility] 1440 [facility] [place] [address] [facility] documented in this encounter Visit Diagnoses Diagnosis Vaginal infection Vaginitis and vulvovaginitis, unspecifie d UTI (urinary tract infection) Urinary tract infection, site not specif ied Vaginal itching Pruritus of genital organs documented in this encounter Care Teams Director Of Physical Security Relationship Specialty Start Date End Date Selma Good, SEAN E LEARNING MANAGER PCP - General 04/09/08 04/07/15 4425 [facility] [place] [address] documented as of this encounter
--- OUTSIDE RECORDS SUMMARY | 2022-05-09 13:34 | XMS_ITS | Encounter Summary ---
:1965 Author Organization [facility] Address [address] [place] [address] Care Team Providers Name Role Phone Selma Good APRN ADZING AND BORING MACHINE FEEDER Primary Care Provider [phone] Encounter Details Date Type Department Care Team Description 08/18/2012 Results Only [facility] Diego marshall MD [facility] RETIRED [address] [place] [address] Social History Tobacco Use [...] How often do you attend pentecostal or hinduism Patient refused 08/08/2019 services? Do [...] on filedocumented in this encounter Care Teams Deputy Bailiff Relationship Specialty Start Date End Date Selma Good, GOLF TEACHER ADZING AND BORING MACHINE FEEDER PCP - General 04/09/08 04/07/[address] [place], [place] [address] documented as of this encounter
--- OUTSIDE RECORDS SUMMARY | 2022-05-09 13:34 | XMS_ITS | Encounter Summary ---
:1965 Author Organization [facility] Address [address] [place] [address]. [place] [address] Care Team Providers Name Role Phone Selma Good APRN ASSISTANT PROFESSOR IN FAMILY STUDIES Primary Care Provider [phone] Reason for Visit Reason Comments Jaw Pain jaw pain, neck pain, arm valdo n all day. Encounter Details Date Type Department Care Team Description 10/28/2011 - Emergency [facility] Brodie Albert dave Michel MD [facility] [address] [place], [place] [id number] Chest pain; 10/29/[address] Ольга Hawkins MD [address] [place] [address] Hypertension goal BP (blood pressure) < 130/80; Surgical Vulvar dystrophy; [address] GERD (gastroesophageal reflu x disease); [place], [place] Hyperlipidemi a LDL goal <100 [phone] [...] organizations such as No 08/08/2019 latter-day groups, [employer], fracWyze or athletic groups, or school groups? How [...] 10:55 AM CDT Thank you for allowing [facility] to participate in your cares. 1 [...] her upper extremities reveals 5/5 strength of manufacturing controls engineer, biceps, triceps of the bilateral upper extremities [...] MD MT: #[id number] Name: MEGAN WONG Account: [id number] : 1965 Admitted: [id number] Document: [id number] documented in this encounter ED Notes Ciera [...] Normal sinus rhythm, ventricular rate 62 bpm. ID Interval: 196 ms QRS Duration: 98 ms [...] record. The patient was placed on a equipment monitor phototypesetting and continuous pulse oximeter. IV inserted. 2230 [...] Goal (Adult,OB,Behavioral The patient and/or their quality control representative will achieve their patient-specific goals related [...] . Pharmacy-Admission Medication History - Larry Reyes [facility] - 10/29/2011 9:28 AM CDT Medication Reconciliation Complete. Plan of Care - Cristina Lacy RN - 10/29/2011 7:03 AM CDT Problem: IP GENERAL POC-ADULT,OB,BEHAVIORAL FVCPM Goal: Individualization/Patient-Specific Goal (Adult,OB,Behavioral The patient and/or their quality control representative will achieve their patient-specific goals related [...] 4:45 CDT PM CDT Kalyan Calloway MD [facility] POCT Performing Organization Address City/State/ZIP Code Phon e Number FV POINT OF CARE TEST, GLUCOSE POINT OF CARE TEST, GLUCOSE Echo stress test (10/29/2011 7:50 AM CDT) [facility] gist Method Time Signature XCELERA RADIOLOGY [...] Signature Troponin I ES <0.012 0.000 [facility] 0.[facility] ug/L [facility] Specimen Anatomical Collection Method Collection Time Receive d Time (Source) Location / / Volume Laterality Blood specimen 10/29/2011 6:15 AM 012 6:39 (specimen) CDT AM CDT Wisam Weiss MD LAB - BLOOD ORDERABLES Performing Organization Address City/[facility] Phon e Number [place] [address] [place], [place] [address] [facility] Hemoglobin A1c (10/29/2011 6:15 AM CDT) athologist Signature Hemoglobin A1C 5.5 4.3 - 6.0 [facility] Specimen Anatomical Collection Method Collection Time Receive d Time (Source) Location / / Volume Laterality Blood specimen 10/29/2011 6:15 AM 012 6:38 (specimen) CDT AM CDT Wisam Weiss MD LAB - BLOOD ORDERABLES Performing Organization Address City/[facility] e [place] [address] [place], [place] [phone] [place] [address] LAB Troponin I (10/29/2011 2:35 AM CDT) athologist Signature Troponin I ES <0.012 0.000 - [facility] 0.034 ug/L [facility] Specimen Anatomical Collection Method Collection Time Receive d Time (Source) Location / / Volume Laterality Blood specimen 10/29/2011 2:35 AM 012 2:36 (specimen) CDT AM CDT Ольга Hawkins MD LAB - BLOOD ORDERABLES Performing Organization Address City/[facility] Phon e [place] [address] [place], [place] [address] [facility] [address] Angiogram neck w & w/o [...] 1:30 CDT AM CDT Kalyan Calloway MD [facility] POCT Performing Organization Address City/State/ZIP Code Phon [...] Signature D Dimer 0.4 0.0 - 0.50 [facility] ug/ml [facility] LAB Specimen Anatomical Collection Method Collection Time Receive d Time (Source) Location / / Volume Laterality 10/28/2011 9:55 PM 2 CDT 10:12 PM CDT Kalyan Calloway MD LAB - BLOOD ORDERABLES Performing Organization Address City/[facility] Phon e Number M [facility] [address] [place], [place] [address] [facility] Troponin I (now) (10/28/2011 9:55 PM CDT) athologist Signature Troponin I ES <0.012 0.000 - [place] 0.034 ug/L [facility] Specimen Anatomical Collection Method Collection Time Receive d Time (Source) Location / / Volume Laterality Blood specimen 10/28/2011 9:55 PM 012 (specimen) CDT 10:12 PM CDT Kalyan Calloway MD LAB - BLOOD ORDERABLES Performing Organization Address City/[facility] Phon e Number M [facility] [address] [place], [place] [address] [facility] CBC + differential (10/28/2011 9:55 PM CDT) Patholo gist Method Time Signature WBC 8.1 4.0 - [place] 11.0 [facility] 10e9/L [facility] RBC Count 4.09 3.8 - 5.2 [place] 10e12/L [facility] Hemoglobin 12.3 11.7 - [place] 15.7 g/dL [facility] Hematocrit 37.9 35.0 - [place] 47.0 % [facility] MCV 93 78 - 100 [facility] LAB MCH 30.1 26.5 - [facility] 33.0 pg [facility] MCHC 32.5 31.5 - [facility] 36.5 g/dL [facility] RDW 12.5 10.0 - [place] 15.0 % [facility] Platelet Count 221 150 - 450 [facility] [facility] Diff Method Automated [place] Method [facility] % Neutrophils 48.0 40 - 75 % [facility] % Lymphocytes 39.9 20 - 48 % [facility] % Monocytes 7.9 0 - 12 % [facility] % Eosinophils 3.1 0 - 6 % [facility] % Basophils 0.7 0 - 2 % [facility] % Immature 0.4 0 - 0.4 % [place] Granulocytes [facility] Absolute 3.9 1.6 - 8.3 [place] Neutrophil 10e9/L [facility] Absolute 3.3 0.8 - 5.3 [place] Lymphocytes [address] LAB Absolute 0.6 0.0 - 1.3 [place] Monocytes 10e9/[facility] Absolute 0.3 0.0 - 0.7 [place] Eosinophils [facility] Absolute 0.1 0.0 - 0.2 [place] Basophils [facility] Abs Immature 0.0 0 - 0.03 [place] Granulocytes [address] [place] [address] LAB Specimen Anatomical Collection Method Collection Time Receive d Time (Source) Location / / Volume Laterality Blood specimen 10/28/2011 9:55 PM 012 (specimen) CDT 10:12 PM CDT Kalyan Calloway MD LAB - BLOOD ORDERABLES Performing Organization Address City/State/ZIP Code Phon e Number M [facility] [address] [place], [place] [address] [facility] (ABNORMAL) Basic metabolic panel (BMP) (10/28/2011 9:55 PM CDT) P athologist Signature Sodium 142 133 - 144 [place] mmol/L [facility] Potassium 3.6 3.4 - 5.3 [place] mmol/L [facility] Chloride 100 94 - 109 [place] mmol/L [facility] Carbon Dioxide 31 20 - 32 [place] mmol/L [facility] Anion Gap 12 6 - 17 [place] mmol/L [facility] Glucose 102 (H) 60 - 99 [place] mg/dL [facility] Urea Nitrogen 16 5 - 24 [place] mg/dL [facility] Creatinine 0.63 0.52 - [facility] 1.04 mg/dL [facility] GFR Estimate >90 >60 [place] mL/min/1.[address] LAB GFR Estimate If >90 >60 [place] Black mL/min/1.[address] LAB Calcium 9.2 8.5 - 10.4 [place] mg/dL [facility] Specimen Anatomical Collection Method Collection Time Receive d Time (Source) Location / / Volume Laterality Blood specimen 10/28/2011 9:55 PM 012 (specimen) CDT 10:12 PM CDT Kalyan Calloway MD LAB - BLOOD ORDERABLES Performing Organization Address City/State/ZIP Code Phon e Number [place] [address] [place], [place] [address] [facility] EKG 12 lead (10/28/2011 9:15 PM CDT) Component Value Ref Range Test Analysis Performed Pathologis t Method Time At Signature Ventricular Rate 62 BPM RADIOLOGY RESULTS Atrial Rate 62 BPM RADIOLOGY RESULTS ID Interval 196 ms RADIOLOGY RESULTS QRS Duration 98 ms RADIOLOGY RESULTS QT 410 ms RADIOLOGY RESULTS QTc 416 ms RADIOLOGY RESULTS P [place] 57 degrees RADIOLOGY RESULTS R AXIS -27 degrees RADIOLOGY RESULTS T [place] 48 degrees RADIOLOGY RESULTS Interpretation AGE AND [...] doses documented in this encounter Care Teams Computer Network And Systems Engineer Relationship Specialty Start Date End Date Selma Good, OUTSIDE CONTRACTOR SALES ASSISTANT PROFESSOR IN FAMILY STUDIES PCP - General 04/09/08 04/07/[address] [place] [address] documented as of this encounter
--- OUTSIDE RECORDS SUMMARY | 2022-05-09 13:34 | XMS_ITS | Encounter Summary ---
:1965 Author Organization [facility] Address [address] [place] [address] Care Team Providers Name Role Phone Selma Good APRN VAN CDL DRIVER Primary Care Provider [phone] Reason for Visit Reason Onset Date Comments Refill Request 12/05/2012 metformin hcl 1000mg Encounter Details Date Type Department Care Team Description 12/05/2012 Refill [facility] Eag Selma Anthony Refill Request [address] [employer] [place] CNP (metformin hcl 1000mg) [place] [address] [facility] [phone] [facility] [place] [address] (Wo rk) [...] How often do you attend advent or caodaism Patient refused 08/08/2019 services? Do [...] uncontrolled documented in this encounter Care Teams Security Test Engineer Relationship Specialty Start Date End Date Selma Good, SALES SOLUTIONS REPRESENTATIVE VAN CDL DRIVER PCP - General 04/09/08 04/07/[address] [address] [place], [place] [address] documented as of this encounter
--- OUTSIDE RECORDS SUMMARY | 2022-05-09 13:34 | XMS_ITS | Encounter Summary ---
:1965 Author Organization [facility] Address [address] [place] [address] Care Team Providers Name Role Phone Selma Good APRN BAG ADJUSTER Primary Care Provider [phone] Reason for Visit Reason Comments Diabetes Recheck Medication Encounter Details Date Type Department Care Team Description 01/10/2012 Office Visit [facility] Florentino, Type 2 diab etes, HbA1C goal < 7% (H) (Primary Dx); [place], SEAN Migraine [address] [place] [address] [facility] [phone] [facility] [place] [address] Social History Tobacco [...] How often do you attend rastafari or mormon Patient refused 08/08/2019 services? Do [...] mouth daily. Histories reviewed and updated in [facility]. ROS: Complete/DM ROS - C: NEGATIVE for fatigue, unexpected change in weight EYES: positive for worsening in visual acuity; is going to see aperture mask etcher soon, feels that vision has been decreasing [...] ulcerative lesions and normal sensory exam ASSESSMENT/PLAN: Megna was seen today for diabetes and recheck [...] athologist Signature TSH 1.55 0.4 - 5.0 [facility] mU/L CLINIC LAB Specimen Anatomical Collection Method Collection Time Receive d Time (Source) Location / / Volume Laterality Blood specimen 01/10/2012 10:38 2 (specimen) AM CDT 10:40 AM CDT Selma Good CORN BREEDER BAG ADJUSTER LAB - BLOOD ORDERABLES Performing Organization Address City/State/ZIP Code Phon e Number [facility] [address] [place] [address] [facility] documented in this encounter Visit Diagnoses Diagnosis Type 2 diabetes, HbA1c goal < 7% (H) - P rimary Type II or unspecified type diabetes sukhdev litus without mention of complication, not stated as uncontrolled Migraine Migraine, unspecified, without mention o f intractable migraine without mention of status migrainosus documented in this encounter Care Teams Stripper Preliminary Relationship Specialty Start Date End Date Selma Good, SEAN BAG ADJUSTER PCP - General 04/09/08 04/07/[address] [place] [address] documented as of this encounter
--- OUTSIDE RECORDS SUMMARY | 2022-05-09 13:34 | XMS_ITS | Encounter Summary ---
:1965 Author Organization [facility] Address [address] [place] [address]. [place] [address] Care Team Providers Name Role Phone Selma Good APRN FREEZER MACHINE OPERATOR Primary Care Provider [phone] Encounter Details Date Type Department Care Team Description 12/06/2012 Orders Only [facility] Eag an Type 2 diabetes, HbA1C 1440 [...] How often do you attend sikh or restoration Patient refused 08/08/2019 services? Do [...] athologist Signature TSH 2.01 0.4 - 5.0 [facility] mU/L CLINIC LAB Specimen Anatomical Collection Method Collection Time Receive d Time (Source) Location / / Volume Laterality Blood specimen 12/06/2012 9:14 AM 013 9:15 (specimen) CDT AM CDT Selma Good APRN FREEZER MACHINE OPERATOR LAB - BLOOD ORDERABLES Performing Organization Address City/State/ZIP Code Phon e Number [facility] [address] [place] [address] [facility] [address] [place] [address] (ABNORMAL) Lipid Profile with reflex to direct LDL (12/06/2012 9:14 AM CDT) athologist Signature Cholesterol 128 0 - 200 [facility] mg/dL [facility] Comment: LDL Cholesterol is the primary guide to therapy. The NCEP recommends further evaluation of: patients with cholesterol greater than 200 mg/dL if additional risk facto rs are present, cholesterol greater than 240 mg/dL, triglycerides greater than 1 50 mg/dL, or HDL less than 40 mg/dL. Triglycerides 39 0 - 150 mg/dL [facility] Comment: Fasting specimen HDL Cholesterol 43 (L) 50 - 110 mg/dL [facility] LDL Cholesterol Calculated 77 0 - 129 mg/dL [facility] Comment: LDL Cholesterol is the primary guide to therapy: LDL-cholesterol goal in high risk patients is <100 mg/dL and in very high risk patients is <70 mg/dL. VLDL-Cholesterol 8 0 - 30 mg/dL [facility] Cholesterol/HDL Ratio 3.0 0.0 - 5.[address] [facility] Specimen Anatomical Collection Method Collection Time Receive d Time (Source) Location / / Volume Laterality Blood specimen 12/06/2012 9:14 AM 013 9:15 (specimen) CDT AM CDT Selma Good APRN FREEZER MACHINE OPERATOR LAB - BLOOD ORDERABLES Performing Organization Address City/State/ZIP Code Phon e Number [facility] [address] [place] [address] [facility] [address] [place] [address] (ABNORMAL) Comprehensive metabolic panel (BMP + Alb, Alk Phos, ALT, AST, Total. Bili, TP) (12/06/2012 9:14 AM CDT) athologist Signature Sodium 143 133 - 144 [facility] mmol/L [facility] Potassium 4.5 3.4 - 5.3 [facility] mmol/L [facility] Chloride 108 94 - 109 [facility] mmol/L [facility] Carbon Dioxide 24 20 - 32 [facility] mmol/L [facility] Anion Gap 12 6 - 17 [facility] mmol/L [facility] Glucose 103 (H) 60 - 99 [facility] mg/dL [facility] Comment: Fasting specimen Urea Nitrogen 14 5 - 24 mg/dL [facility] Creatinine 0.59 0.52 - 1.04 mg/dL [facility] GFR Estimate >90 >60 mL/min/1.7m2 [facility] GFR Estimate If Black >90 >60 mL/min/1.7m2 [facility] Calcium 8.6 8.5 - 10.4 mg/dL [facility] Bilirubin Total 0.2 0.2 - 1.3 mg/dL [facility] Albumin 3.7 (L) 3.9 - 5.1 g/dL [facility] Protein Total 6.9 6.8 - 8.8 g/dL [facility] Alkaline Phosphatase 76 40 - 150 U/L [facility] ALT 20 0 - 50 U/L [facility] AST 17 0 - 45 U/L [facility] Specimen Anatomical Collection Method Collection Time Receive d Time (Source) Location / / Volume Laterality Blood specimen 12/06/2012 9:14 AM 06/28/2 013 9:15 (specimen) CDT AM CDT Selma Good APRN, CNP LAB - BLOOD ORDERABLES Performing Organization Address City/[facility] Phon e Number [facility] [address] [place] [address] [facility] [address] [place] [address] Hemoglobin A1c (12/06/2012 8:53 AM CDT) P athologist Signature Hemoglobin A1C 5.8 4.3 - 6.0 [facility] Specimen Anatomical Collection Method Collection Time Receive d Time (Source) Location / / Volume Laterality Blood specimen 12/06/2012 8:53 AM 013 8:54 (specimen) CDT AM CDT Selma Good APRN, CNP LAB - BLOOD ORDERABLES Performing Organization Address [facility] Code Phon e Number [facility] [address] [place] [phone] [facility] [address] [place] [address] documented in this encounter Visit Diagnoses Diagnosis Type 2 diabetes, HbA1c goal < 7% (H) - P rimary Type II or unspecified type diabetes sukhdev litus without mention of complication, not stated as uncontrolled documented in this encounter Care Teams Engineering Design Manager Relationship Specialty Start Date End Date Selma Good APRN CNP PCP - General 04/09/08 04/07/15 [facility] [place] [address] documented as of this encounter
--- OUTSIDE RECORDS SUMMARY | 2022-05-09 13:34 | XMS_ITS | Encounter Summary ---
:1965 Author Organization [facility] Address [address] [place] [address] Care Team Providers Name Role Phone Selma Good APRN KNUCKLE STRAP SEWER Primary Care Provider [phone] Encounter Details Date Type Department Care Team Description 06/21/2011 Office Visit [facility] Diego Padilla NO SHOW (Primary Dx) [address] [place] [address] RETIRED [phone] Social History Tobacco Use Types Packs/Day Years [...] How often do you attend shinto or pentecostalism Patient refused 08/08/2019 services? Do [...] of this encounter Progress Notes Diego Nelson - 06/26/2011 9:56 AM CST appt cancelled D EDITOR documented in this encounter Plan of Treatment Not on filedocumented as of this encounter Visit Diagnoses Diagnosis NO SHOW - Primary documented in this encounter Care Teams Triage Nurse Relationship Specialty Start Date End Date Danilo-Selma Mccoy APRN KNUCKLE STRAP SEWER PCP - General 04/09/08 04/07/15 [address] [facility] [place] [address] documented as of this encounter
--- OUTSIDE RECORDS SUMMARY | 2022-05-09 13:34 | XMS_ITS | Encounter Summary ---
:1965 Author Organization [facility] Address [address] [place] [address] Care Team Providers Name Role Phone Selma Good APRN DECK STEWARD Primary Care Provider [phone] Reason for Visit Reason Onset Date Comments Refill Request 04/01/2012 topamax Encounter Details Date Type Department Care Team Description 04/01/2012 Refill [facility] Eag Selma Anthony Refill Request (topamax) [address] [email or web address] [place] [address] [place] [address] [facility] [place] [address] (Wo rk) [...] How often do you attend congregational or oriental orthodox Patient refused 08/08/2019 services? [...] migrainosus documented in this encounter Care Teams Industry Analyst Relationship Specialty Start Date End Date Selma Good, SCHEDULING MANAGER DECK STEWARD PCP - General 04/09/08 04/07/15 [address] [place], [place] [address] documented as of this encounter
--- OUTSIDE RECORDS SUMMARY | 2022-05-09 13:34 | XMS_ITS | Encounter Summary ---
:1965 Author Organization [facility] Address [address] [place] [address]. [place] [address] Care Team Providers Name Role Phone Selma Good APRN WELDING SPECIALIST Primary Care Provider [phone] Reason for Visit Reason Comments Consult chronic vaginal itching x's 9 months - tried a steroid cream that made sx's worse - menstral cycle also seems to make sx's worse Encounter Details Date Type Department Care Team Description 10/18/2011 Office Visit [facility] Diego Padilla Vulvar dystrophy (Primary Dx ); [facility] Flavia Vaginal itching; [place] [address] RETIRED Menorrhagia [phone] Social History Tobacco Use Types Packs/Day Years [...] often do you attend latter day or jewish Patient refused 08/08/2019 services? Do [...] Body Mass Index 31.46 07/27/2011 9:40 AM STUD MASTER/MISTRESS documented in this encounter Progress Notes Kallie Mora - 10/18/2011 11:30 AM CDT Addended by: KALLIE MORA on: 10/18/2011 Modules accepted: Orders Diego Nelson - 10/18/2011 11:09 AM CDT Addended by: DIEGO NELSON on: 10/18/2011 Modules accepted: Orders Diego Nelson - 10/18/2011 11:08 AM CDT Here for [...] Copath Report Patient Name: PADMINI CHOI MR#: [id number] Specimen #: [id number] Collected: 10/18/2011 Received: 10/19/2011 Reported: 10/23/2011 07:01 Ordering Phy(s): DIEGO NELSON SPECIMEN(S): Vulva biopsy, left FINAL DIAGNOSIS: [...] considered. ??Clini trisha correlation is required. PATRICIO/ritu 10-20-11 TESTING LAB LOCATION: [address] ??[address] COLLECTION SITE: Client: [facility] Location: EAOB (R) Specimen Anatomical Collection Method Collection Time Receive d Time (Source) Location / / Volume Laterality 10/18/2011 1:42 PM 2 7:49 CDT AM CDT Diego Nelson MD LAB - BEAKER AP Performing Organization Address City/State/ZIP Code Phon e Number [place] Wet prep (10/18/2011 10:20 AM CDT) [facility] Method Time Signature Specimen [facility] Description [facility] Wet Prep No Trichomonas seen [place] Clue cells seen [facility] Yeast seen LAB Micro Report FINAL [place] Status 10/18/2011 [facility] Specimen Anatomical Collection Method Collection Time Receive d Time (Source) Location / / Volume Laterality 10/18/2011 10:20 10/18/2011 AM CDT 10:23 AM CDT Diego Nelson MD LAB - MICRO GENERAL ORDERABL ES Performing Organization Address City/[facility]/ZIP Code Phon e Number [facility] [address] [facility] [place] [address] [facility] documented in this encounter Visit Diagnoses Diagnosis Vulvar dystrophy - Primary Other dystrophy of vulva Vaginal itching Pruritus of genital organs Menorrhagia Excessive or frequent menstruation documented in this encounter Care Teams Floating Derrick Operator Relationship Specialty Start Date End Date Selma Good APRN WELDING SPECIALIST PCP - General 04/09/08 04/07/15 [address] [facility] [place] [address] documented as of this encounter
--- OUTSIDE RECORDS SUMMARY | 2022-05-09 13:34 | XMS_ITS | Encounter Summary ---
:1965 Author Organization [facility] Address [address] [place] [address]. 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] How often do you attend confucianist or amish Patient refused 08/08/2019 services? Do you belong to any clubs or organizations such as No 08/08/2019 confucianist groups, [employer], [employer] or athletic groups, or school groups? [...] Blood Pressure 90/61 05/29/2012 10:32 AM ENVIRONMENTAL SCIENCES PROFESSOR Pulse 73 05/29/2012 10:32 AM ENVIRONMENTAL SCIENCES PROFESSOR Temperature 37 ??C (98.6 ??F) 05/29/2012 10:32 AM ENVIRONMENTAL SCIENCES PROFESSOR Respiratory Rate - - Oxygen Saturation - - Inhaled Oxygen Concentration - - Weight 73.9 kg (163 lb) 05/29/2012 10:32 AM ENVIRONMENTAL SCIENCES PROFESSOR Height 157.5 cm (5' 2) 05/29/2012 10:32 AM ENVIRONMENTAL SCIENCES PROFESSOR Body Mass Index 29.81 05/29/2012 10:32 AM ENVIRONMENTAL SCIENCES PROFESSOR documented in this encounter Patient Instructions Patient InstructionsSelma Good NP - 05/29/2012 11:08 AM ENVIRONMENTAL SCIENCES PROFESSOR Schedule a lab only fasting appointment within [...] could help with mood and pain. RONMENTAL SCIENCES PROFESSOR documented in this encounter Progress Notes [...] list, Allergies, and Medical/Social/Surgical histories reviewed in [facility] andupdated as appropriate. OBJECTIVE: Temp(Src) 98.6 [...] could help with mood and pain. 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 Insurance changing 2012 Initial BP 90/61 Pulse [...] MIGRAINE QUESTIONNAIRE Routine 05/28/2012 10:49 AM ENVIRONMENTAL SCIENCES PROFESSOR Migrain e headache documented in this encounter [...] influenza documented in this encounter Care Teams Game Designer/Creative Director Relationship Specialty Start Date End Date Danilo-Selma Mccoy, ENVIRONMENTAL SERVICES WORKER MANAGER ENVIRONMENTAL HEALTH AND SAFETY PCP - General 04/09/08 04/07/15 [address] [facility] [place] [address] documented as of this encounter
--- OUTSIDE RECORDS SUMMARY | 2022-05-09 13:34 | XMS_ITS | Encounter Summary ---
:1965 Author Organization [facility] Address [address] [place] [address] Care Team Providers Name Role Phone Selma Good APRN, CNP Primary Care Provider [phone] Vanda Guerrero MD Primary Care Provider [phone] Encounter Details Date Type Department Care Team Description 10/29/2011 Historic Results [facility] Heart Unknown, [facility] ider Clinic [address] [place] [address] Social History Tobacco Use Types [...] How often do you attend sabianism or mosque Patient refused 08/08/2019 services? Do [...] SCAN - ARCHIVE (10/29/2011 12:00 AM CDT) Anatomical Region Laterality Modality Echocardiography Specimen (Source) Anatomical Location Collection Method / Collectio n Time Received Time / Laterality Volume 10/29/2011 Narrative This result has an attachment that is no t available. Provider Scan CV ECHO ORDERABLES documented in this encounter Visit Diagnoses Not on filedocumented in this encounter Care Teams Napper Grinder Relationship Specialty Start Date End Date Danilo-Selma Mccoy, HEALTH PROFESSOR APPLICATION SECURITY DEVELOPER PCP - General 04/09/08 04/07/[address] [facility] [address] Vanda Guerrero MD PCP - General Internal Medicine 04/08/15 01/08/19 [address] [facility] [place] [address] documented as of this encounter
--- OUTSIDE RECORDS SUMMARY | 2022-05-09 13:34 | XMS_ITS | Encounter Summary ---
:1965 Author Organization [facility] Address [facility] [place] [address] Care Team Providers Name Role Phone Selma Angelo APRN CRACKING AND FANNING MACHINE OPERATOR Primary Care Provider [phone] Reason for Referral Referral not Required - Closed Specialty Diagnoses / Procedures Referred By Contact Refer red To Contact Diagnoses External hemorrhoids with other complication Diego Nelson MD [facility] [address] [place] [address] Phone: Fax: Referral ID Status Reason Start Date Expiration Date Visits Requ ested Visits Authorized [id number] Closed 11/15/2011 05/13/2012 1 1 Reason for Visit Reason Comments Procedure EMB - follow-up regarding va ginal itching - nystatin cream did help with sx's - questions concerning area near retum - possible removal of a piece of skin near the rectum Encounter Details Date Type Department Care Team Description 11/15/2011 [facility] Diego Padilla Menorrhagia (Primary Dx); [address] Priscilla Alejandro MD External hemorrhoids with other complica tion [place] [address] RETIRED [phone] Social History Tobacco Use Types Packs/Day Years [...] How often do you attend mosque or faith Patient refused 08/08/2019 services? Do [...] in this encounter Progress Notes Diego Nelson - 11/15/2011 10:32 AM CDT Here for [...] Priority Associated Diagnoses [facility] Referral Routine External hemorrhoids O rdered: 11/15/2011 REFERRAL with other complication documented as of this encounter Procedures Procedure Name Priority Date/Time Associated Diagnosis Comme [facility] SURGICAL PATHOLOGY Routine 11/15/2011 11:37 AM Menorrhagia Re sults for this EXAM CDT procedure are i n the results section. documented in this encounter Results Surgical pathology exam (11/15/2011 11:37 AM CDT) Component Value Ref Test Analysis Performed At [facility] Range Method Time Signature Copath Report Patient Name: PADMINI CHOI MR#: [id number] Specimen #: [id number] Collected: 11/15/2011 Received: 11/16/2011 Reported: 11/17/2011 14:07 [...] ??SA/sg MICROSCOPIC: Microscopic examination is performed. SA/sg 11-17-11 TESTING LAB LOCATION: [address] ??[address] COLLECTION SITE: Client: [facility] Location: EAOB (R) Specimen Anatomical Collection [...] tion documented in this encounter Care Teams Pad Tufter Relationship Specialty Start Date End Date Selma Angelo, SEAN CRACKING AND FANNING MACHINE OPERATOR PCP - General 04/09/08 04/07/[address] [place] [address] documented as of this encounter
--- OUTSIDE RECORDS SUMMARY | 2022-05-09 13:35 | XMS_ITS | Encounter Summary ---
:1965 Author Organization [facility] Address [address] [place] [address]. [place] [address] Care Team Providers Name Role Phone Selma Good APRN NEUROLOGY PHYSICIAN Primary Care Provider [phone] Reason for Visit Reason Comments RECHECK cellulitis on left leg,state s doesnt notice any difference,c/o pain,dryness and burning sen sation Letter for School/Work Encounter Details Date Type Department Care Team Description 08/29/2010 Office Visit [facility] Vanda Guerrero Cellulit is of leg Pino Toribio MD (Primary Dx) [address] [place] [address] [facility] [phone] [place] [address] (Wo rk) Social History [...] often do you attend latter day or gnosticism Patient refused 08/08/2019 services? Do [...] ??? Obesity 278.00J ??? Family History of RI (Myocardial Infarction) V17.3Y ??? Cervical Pain 723.1L [...] 08/29/2010 2:15 PM CDT >> ADALBERTO FULTON [facility] Aug 29, 2010 2:20 PM Patient [...] ot documented in this encounter Care Teams Humid System Operator Relationship Specialty Start Date End Date Selma Good, AEROPHYSICS ENGINEER NEUROLOGY PHYSICIAN PCP - General 04/09/08 04/07/15 [address] [facility] [address] [place], [place] [address] documented as of this encounter
--- OUTSIDE RECORDS SUMMARY | 2022-05-09 13:35 | XMS_ITS | Encounter Summary ---
:1965 Author Organization [facility] Address [address] [place] [address] Care Team Providers Name Role Phone Selma Good STORE CLERK CHECKER HOT ROLL INSPECTOR Primary Care Provider Reason for Referral Referral not Required - Closed Specialty Diagnoses / Procedures Referred By Contact Refer red To Contact Diagnoses Neck pain Selma Good [facility] ST[facility] CLERK CHECKER HOT ROLL INSPECTOR CNTR [address], [place] [address] [place] [phone] Referral ID Status Reason Start Date Expiration Date Visits Requ ested Visits Authorized [id number] Closed 01/12/2010 01/12/2010 1 1 - Closed Specialty Diagnoses / Procedures Referred By Contact Refer red To Contact Diagnoses Prediabetes Selma Good, STORE CLERK CHECKER HOT ROLL INSPECTOR [address] [facility] [place] [address] Referral ID Status Reason Start Date Expiration Date Visits Requ ested Visits Authorized [id number] Closed 01/12/2010 01/12/2010 1 1 eferral not Required - Closed Specialty Diagnoses / Procedures Referred By Contact Refer red To Contact Diagnoses Insomnia Selma Good, ZF[facility]YELY [facility] STORE CLERK CHECKER [facility] [address] [facility] [address] [place] [address] [place] [address] Referral ID Status Reason Start Date Expiration Date Visits Requ ested Visits Authorized [id number] Closed 01/12/2010 01/12/2010 1 1 Reason for Visit Reason Comments Physical Pre Visit Planning - Done Encounter Details Date Type Department Care Team Description 01/12/2010 Office Visit [facility] Florentino, Routine Gen eral Medical Examination at a Health Care Facility (Primary Dx); Pino Angeles APRN Insomnia; [address] [facility] Prediabetes; [place] [address] [place] [address] Bruises Easily; [phone] [facility] Breast Cancer Screening; [place] [address] Neck Pain; [phone] Chronic Fatigue (Work) Social History Tobacco Use [...] Body Mass Index 37.58 07/12/2009 4:06 PM CANINE SERVICE INSTRUCTOR TRAINER documented in this encounter Patient Instructions [...] ultrasound instead for screening. Sleep Issues: call [facility] at [phone], and schedule a sleep study. They will forward your results to me and afterward, schedule an appointment with me to discuss your results and a plan. DON'T FORGET: Please let Dr. Martinez know about your sleeping issues at neurology follow up. Prediabetes: Schedule an appointment with Arianna, the clinical informatics educator to discuss dietary Breast center: Please call them and schedule a consultation appointment re: breast reduction surgeryin relation to chronic neck pain and headaches. Lab work results will be emailed by Record[employer] or mailed to your home. Your prescriptions [...] list. All Histories reviewed and updated in ItsOn. ROS: C: NEGATIVE for fever, chills, change [...] ultrasound instead for screening. Sleep Issues: call [facility] [place] at [phone], and schedule a sleep study. They will forward your results to me and afterward, schedule an appointment with me to discuss your results and a plan. DON'T FORGET: Please let Dr. Martinez know about your sleeping issues at neurology follow up. Prediabetes: Schedule an appointment with Arianna, the clinical informatics educator to discuss dietary Breast center: Please call them and schedule a consultation appointment re: breast reduction surgeryin relation to chronic neck pain and headaches. Lab work results will be emailed by RecordSled or mailed to your home. Your prescriptions [...] is no t available. Selma Good APRN HOT ROLL INSPECTOR REFERRAL CRP, INFLAMMATION (01/12/2010 5:00 PM CDT) Analysis Performed At Path logist Time Signature CRP Inflammation 7.9 0.0 - 8.0 [facility] mg/L [facility] LABS Specimen Anatomical Collection Method Collection Time Receive d Time (Source) Location / / Volume Laterality 01/12/2010 5:00 PM 0 5:03 CDT PM CDT Selma Good APRN HOT ROLL INSPECTOR LABORATORY Performing Organization Address City/State/ZIP Code Phon e Number [facility] [address] [place] [address] [facility]S VITAMIN D DEFICIENCY SCREENING (01/12/2010 5:00 PM CDT) Component Value Ref Test Analysis Performed At [facility] gist Range Method Time Signature 25 [place] Vit D2 <5 ug/L [facility] 25 [place] Vit D3 32 ug/L [facility] 25 [place] Vit D <37 30 - 75 [facility] total Season, race, dietary intake, and treatm ent affect the concentration of ug/L [facility] 05-vmqtoeu-Wzjntbu D. Values may decrease during gordon er months and increase CAMPUS LABS during summer months. Values less than 30 ug/L may indicate Vitamin D deficiency. Specimen Anatomical Collection Method Collection Time Receive d Time (Source) Location / / Volume Laterality 01/12/2010 5:00 PM 0 5:03 CDT PM CDT Selma Good APRN HOT ROLL INSPECTOR LABORATORY Performing Organization Address City/State/ZIP Code Phon e Number [facility] [address] [place] [address] [facility] PTT THROMBOPLAS TIME PARTIAL (01/12/2010 5:00 PM CDT) P athologist Signature PTT 27 22 - 37 sec [facility] Specimen Anatomical Collection Method Collection Time Receive d Time (Source) Location / / Volume Laterality 01/12/2010 5:00 PM 0 5:03 CDT PM CDT Selma Good APRN HOT ROLL INSPECTOR LABORATORY Performing Organization Address City/State/ZIP Code Phon e Number [facility] [address] [place] [address] [facility] CBC WITH PLATELETS, DIFF (01/12/2010 5:00 PM CDT) Patholo gist Method Time Signature WBC 7.9 4.0 - [facility] 11.0 [facility] 10e9/L LAB RBC Count 4.51 3.8 - 5.2 [place] 10e12/L [facility] Hemoglobin 13.6 11.7 - [facility] 15.7 g/dL [facility] Hematocrit 41.7 35.0 - [facility] 47.0 % [facility] MCV 93 78 - 100 [place] fl [facility] MCH 30.2 26.5 - [facility] 33.0 pg [facility] MCHC 32.6 31.5 - [facility] 36.5 g/dL [facility] RDW 12.8 10.0 - [facility] 15.0 % [facility] Platelet Count 259 150 - 450 [place] 10e9/L [facility] Diff Method Automated [place] Method [facility] % Neutrophils 61 40 - 75 % [facility] % Lymphocytes 29 20 - 48 % [place] [facility] % Monocytes 8 0 - 12 % [place] [facility] LAB % Eosinophils 1 0 - 6 % [facility] LAB % Basophils 1 0 - 2 % [facility] Absolute 4.8 1.6 - 8.3 [place] Neutrophil 10e9/L [facility] Absolute 2.3 0.8 - 5.3 [place] Lymphocytes 10e9/L [facility] Absolute 0.7 0.0 - 1.3 [place] Monocytes 10e9/L [facility] Absolute 0.1 0.0 - 0.7 [place] Eosinophils 10e9/L [facility] Absolute 0.0 0.0 - 0.2 [place] Basophils 10e9/L [facility] Specimen Anatomical Collection Method Collection Time Receive d Time (Source) Location / / Volume Laterality 01/12/2010 5:00 PM 0 5:03 CDT PM CDT Selma Good APRN HOT ROLL INSPECTOR LABORATORY Performing Organization Address City/State/ZIP Code Phon e Number [facility] [address] [place] [address] [facility] LAB TSH W/FREE T4 REFLEX (01/12/2010 5:00 PM CDT) P athologist Signature TSH 1.63 0.4 - 5.0 [place] [facility] mU/L [facility] LAB Specimen Anatomical Collection Method Collection Time Receive d Time (Source) Location / / Volume Laterality 01/12/2010 5:00 PM 0 5:03 CDT PM CDT Selma Good APRN HOT ROLL INSPECTOR LABORATORY Performing Organization Address City/State/ZIP Code Phon e Number [facility] [address] [place] [address] [facility] LAB (ABNORMAL) GLUCOSE (01/12/2010 5:00 PM CDT) P athologist Signature Glucose 149 (H) 60 - 99 [facility] mg/dL CLINIC LAB Specimen Anatomical Collection Method Collection Time Receive d Time (Source) Location / / Volume Laterality 01/12/2010 5:00 PM 0 5:03 CDT PM CDT Selma Good APRN, CNP LABORATORY Performing Organization Address City/State/ZIP Code Phon e Number [facility] [address] [facility] [place] [address] [facility] documented in this encounter Visit Diagnoses Diagnosis Routine general medical examination at a [facility] care facility - Primary Insomnia Insomnia, unspecified Prediabetes Other abnormal glucose Bruises easily Other symptoms involving skin and integu mentary tissues Neck pain Cervicalgia Chronic fatigue Other malaise and fatigue documented in this encounter Care Teams Carpet Cleaning Technician Relationship Specialty Start Date End Date Selma Good APRN CNP PCP - General 04/09/08 04/07/15 [address] [facility] [place] [address] documented as of this encounter
--- OUTSIDE RECORDS SUMMARY | 2022-05-09 13:35 | XMS_ITS | Encounter Summary ---
:1965 Author Organization [facility] Address [address] [place] [address]. [place] [address] Care Team Providers Name Role Phone Selma Good APRN FARMWORKER GENERAL Primary Care Provider [phone] Encounter Details Date Type Department Care Team Description 01/19/2010 Orders Only [facility] Eag an Prediabetes [address] [place] [id number] Social History Tobacco Use Types Packs/Day Years [...] often do you attend jehovah's witness or jew Patient refused 08/08/2019 services? Do [...] Hemoglobin A1C 6.4 (H) 4.3 - 6.0 [facility] Specimen Anatomical Collection Method Collection Time Receive d Time (Source) Location / / Volume Laterality 01/19/2010 3:46 PM 0 3:51 CDT PM CDT Selma Good APRN FARMWORKER GENERAL LABORATORY Performing Organization Address City/State/ZIP Code Phon e Number [address] [place] [address] [address] [facility] LAB documented in this encounter Visit Diagnoses Diagnosis Prediabetes Other abnormal glucose documented in this encounter Care Teams Master [employer] Relationship Specialty Start Date End Date Danilo-Selma Mccoy, MAGENTO DEVELOPER FARMWORKER GENERAL PCP - General 04/09/08 04/07/15 [address] [facility] [place] [address] documented as of this encounter
--- OUTSIDE RECORDS SUMMARY | 2022-05-09 13:35 | XMS_ITS | Encounter Summary ---
:1965 Author Organization [facility] Address [address] [place] [address]. [place] [address] Care Team Providers Name Role Phone Selma Good APRN CAR TOP BOLTER Primary Care Provider [phone] Encounter Details Date Type Department Care Team Description 04/02/2010 Orders Only [facility] Eag an Type 2 diabetes, HbA1C goal < 7% (H); [address] Hyperlipidemia LDL goal <100 ; [place] [phone] Hypertension goal BP (blood pressure) < 130/80; [phone] Unspecified epi lepsy without mention of intractable [...] How often do you attend hoahaoism or sikh Patient refused 08/08/2019 services? Do [...] CDT) P athologist Signature Creatinine 207 mg/dL [facility] Urine [facility] LABS Albumin Urine 11 mg/L [facility] mg/L [place] [facility] Albumin Urine 5.31 0 - 20 [facility] mg/g Cr mg/g Cr CAMPUS LABS Specimen Anatomical Collection Method Collection Time Receive d Time (Source) Location / / Volume Laterality Urine specimen 04/02/2010 8:36 AM 010 8:41 (specimen) CDT AM CDT Selma Good APRN CAR TOP BOLTER LAB - URINE ORDERABLES Performing Organization Address City/State/ZIP Code Phon e Number [facility] [address] [place] [address] [facility] LABS (ABNORMAL) Vitamin D deficiency screening (04/02/2010 8:36 AM CDT) Component Value Ref Test Analysis Performed At Patholo gist Range Method Time Signature 25 [place] Vit D2 <5 ug/L [facility] LABS 25 [place] Vit D3 25 ug/L [facility] LABS 25 [place] Vit D <30 30 - 75 [facility] total Season, race, dietary intake, and treatm ent affect the concentration of ug/L [place] 63-wulwkee-G[place] D. Values may decrease during gordon er [...] Address City/[facility]/ZIP Code Phon e Number [facility] [address] [place] [address] [facility] LABS (ABNORMAL) Comprehensive metabolic panel (04/02/2010 8:16 AM CDT) P athologist Signature Sodium 143 133 - 144 [place] mmol/L [facility] LAB Potassium 4.3 3.4 - 5.3 [place] mmol/L [facility] Chloride 105 94 - 109 [place] mmol/L [facility] Carbon Dioxide 27 20 - 32 [place] mmol/L [facility] Anion Gap 10 6 - 17 [place] mmol/L [facility] Glucose 134 (H) 60 - 99 [place] mg/dL [facility] LAB Urea Nitrogen 10 5 - 24 [place] mg/dL [facility] Creatinine 0.74 0.52 - [place] 1.04 mg/dL [facility] LAB Comment: New IDMS-traceable calibration beginning 10/10/07 GFR Estimate 84 >60 mL/min/1.7m2 [facility] GFR Estimate If Black >90 >60 mL/min/1.7m2 [facility] Calcium 9.2 8.5 - 10.4 mg/dL [facility] Bilirubin Total 0.5 0.2 - 1.3 mg/dL [facility] Albumin 4.1 3.9 - 5.1 g/dL [facility] Comment: Reference range changed on 02/10. Protein Total 7.2 6.8 - 8.8 g/dL [facility] Comment: As of 07, reference range reflects plasma specimen type. Alkaline Phosphatase 119 40 - 150 U/L [facility] ALT 22 0 - 50 U/L [facility] LAB AST 20 0 - 45 U/L [facility] LAB Specimen Anatomical Collection Method Collection Time Receive d Time (Source) Location / / Volume Laterality Blood specimen 04/02/2010 8:16 AM 010 8:21 (specimen) CDT AM CDT Selma Good APRN CAR TOP BOLTER LAB - BLOOD ORDERABLES Performing Organization Address City/State/ZIP Code Phon e Number [facility] [address] [place] [address] [facility] (ABNORMAL) Lipid panel reflex to direct LDL (04/02/2010 8:16 AM CDT) athologist Signature Cholesterol 130 0 - 200 [facility] mg/dL CLINIC LAB Comment: LDL Cholesterol is the primary guide to therapy. The NCEP recommends further evaluation of: patients with cholesterol <200 mg/dL if additional risk factors are present, cholesterol >240 mg/dL, triglycerides >150 mg/dL, or HDL <40 mg/dL. Triglycerides 74 0 - 150 mg/dL [facility] HDL Cholesterol 37 (L) 50 - 110 mg/dL [facility] LDL Cholesterol Calculated 78 0 - 129 mg/dL [facility] Comment: LDL Cholesterol is the primary guide to therapy: LDL-cholesterol goal in high risk patients is <100 mg/dL and in very high risk patients is <70 mg/dL. VLDL-Cholesterol 15 0 - 30 mg/dL [facility] Cholesterol/HDL Ratio 3.5 0.0 - 5.0 [facility] Specimen Anatomical Collection Method Collection Time Receive d Time (Source) Location / / Volume Laterality Blood specimen 04/02/2010 8:16 AM 8:21 (specimen) CDT AM CDT Selma Good APRN, CNP LAB - BLOOD ORDERABLES Performing Organization Address City/[facility]/ZIP Code Phon e Number [facility] [address] [place] [address] [phone] [facility] LAB (ABNORMAL) Hemoglobin A1c (04/02/2010 8:16 AM CDT) athologist Signature Hemoglobin A1C 6.7 (H) 4.3 - 6.0 [facility] LAB Specimen Anatomical Collection Method Collection Time Receive d Time (Source) Location / / Volume Laterality Blood specimen 04/02/2010 8:16 AM 010 8:21 (specimen) CDT AM CDT Selma Good APRN, CNP LAB - BLOOD ORDERABLES Performing Organization Address City/[facility]/ZIP Code Phon e Number [facility] [address] [place] [address] [facility] documented in this encounter [...] epilepsy documented in this encounter Care Teams Precision Lens Grinder Apprentice Relationship Specialty Start Date End Date Danilo-Selma Mccoy, MOLD HOISTER CAR TOP BOLTER PCP - General 04/09/08 04/07/[address] [facility] [address] [place], [place] [address] documented as of this encounter
--- OUTSIDE RECORDS SUMMARY | 2022-05-09 13:35 | XMS_ITS | Encounter Summary ---
:1965 Author Organization [facility] Address [address] [place] [address] Care Team Providers Name Role Phone Selma Good APRN INJECTION OPERATOR Primary Care Provider [phone] Reason for Visit Reason Onset Date Comments Chronic Care Conference Provider Overview 04/06/2010 Encounter Details Date Type Department Care Team Description 04/06/2010 Telephone [facility] Eag adarsh Good, Chronic Care Conference [address] [facility] Selma Angeles APRN INJECTION OPERATOR Provider Overview [place] [phone] 8[address] [facility] [phone] [facility] [place] [address] (Wo rk) [...] How often do you attend denominational or mandaeism Patient refused 08/08/2019 services? Do [...] on filedocumented in this encounter Care Teams Production Associate Relationship Specialty Start Date End Date Selma Good, WATER QUALITY SPECIALIST INJECTION OPERATOR PCP - General 04/09/08 04/07/[address] [facility] [address] [place], [place] [address] documented as of this encounter
--- OUTSIDE RECORDS SUMMARY | 2022-05-09 13:35 | XMS_ITS | Encounter Summary ---
:1965 Author Organization [facility] Address [address] [place] [address]. [place] [address] Care Team Providers Name Role Phone Selma Good APRN [facility] Primary Care Provider [phone] Reason for Visit Reason Comments Other Pt [...] Department Care Team Description 08/26/2010 Office Visit [facility] Florentino, Cellulitis of leg P[place] Angeles APRN (Primary Dx) 14[address] [facility] [place] [phone] 0511 [facility] [phone] [facility] [place] [id number] Social History Tobacco Use Types Packs/Day Years [...] How often do you attend sikh or zoroastrianism Patient refused 08/08/2019 services? Do [...] ot documented in this encounter Care Teams Magnet Maker Relationship Specialty Start Date End Date Selma Good APRN HOSPITAL CNA PCP - General 04/09/08 04/07/15 [address] [facility] [address] [place], [place] [address] documented as of this encounter
--- OUTSIDE RECORDS SUMMARY | 2022-05-09 13:35 | XMS_ITS | Encounter Summary ---
:1965 Author Organization [facility] Address [address] [facility] [place] [address] Care Team Providers Name Role Phone Selma Good APRN HAND COLLATOR Primary Care Provider [phone] Encounter Details Date Type Department Care Team Description 03/13/[address] [facility] Lianna Devries MD Results [address] [place] [address] (Wo rk) Social History Tobacco [...] How often do you attend protestant or sabianism Patient refused 08/08/2019 services? Do [...] by SRIRAM SOSA MD MT: nr Name: MEGAN CHOI Account: [id number] : 1965 Visit Date: 03/13/2010 Document: [id number] documented in this encounter Plan of Treatment Not on filedocumented as of this encounter Procedures Procedure Name Priority Date/Time Associated Diagnosis Comme [facility] ZZC 03/21/2010 11:39 AM Results for [...] by SRIRAM SOSA MD MT: nr Name: MEGAN CHOI MRN: [id number] Account: [id number] : 1965 Visit Date: 03/13/2010 Document: [id number] Sriram Sosa MD PROCEDURES documented in this encounter Visit Diagnoses Not on filedocumented in this encounter Care Teams Linux System Admin Relationship Specialty Start Date End Date Danilo-Selma Mccoy, AGENCY SERVICE COORDINATOR HAND COLLATOR PCP - General 04/09/08 04/07/15 [address] [facility] [place] [address] documented as of this encounter
--- OUTSIDE RECORDS SUMMARY | 2022-05-09 13:35 | XMS_ITS | Encounter Summary ---
:1965 Author Organization [facility] Address [address] [place] [address] Care Team Providers Name Role Phone Selma Good APRN STORY TELLER Primary Care Provider [phone] Reason for Visit [facility] Physical Therapy (Routine) - Closed Specialty Diagnoses / Procedures Referred By Contact Refer red To Contact Rayo Whitehead, MARÍA [facility] [address] [place] [address] [address] [place] [address] Referral ID Status Reason Start Date Expiration Date Visits Requ ested Visits Authorized HP - FOOT Closed 01/03/2010 06/10/2010 12 10 Encounter Details Date Type Department Care Team Description 02/07/2010 Therapy Visit [place] for [facility], [facility] Athletic Medicine - Sal Gonzales Enthesopathies (Primary [place] Physical [address]x) Therapy YEYO [address] [place] [address] Dr. CORDOBA, [facility] [place] [address] [phone] Social History Tobacco Use Types Packs/Day Years [...] organizations such as No 08/08/2019 mosque groups, [employer], fraternal or athletic groups, or school groups? [...] Comme nts [facility] MANUAL THER Routine 02/07/2010 5:44 PM Other Peripheral TECH,1+REGIONS,EA 15 CDT Enthesopathies MIN Z THERAPEUTIC Routine 02/07/2010 5:44 PM Other Peripheral EXERCISES CDT Enthesopathies ZC ELECTRIC CURRENT Routine 02/07/2010 5:44 PM Other Peripher al THERAPY CDT Enthesopathies documented in this encounter Visit Diagnoses Diagnosis Other peripheral enthesopathies - Primar y documented in this encounter Care Teams Label Drier Relationship Specialty Start Date End Date Selma Good, SENIOR PROJECT MANAGER STORY TELLER PCP - General 04/09/08 04/07/[address] [place] [address] documented as of this encounter
--- OUTSIDE RECORDS SUMMARY | 2022-05-09 13:35 | XMS_ITS | Encounter Summary ---
:1965 Author Organization [facility] Address [address] [place] [address] Care Team Providers Name Role Phone Selma Good APRN DIGITAL ART DIRECTOR Primary Care Provider [phone] Reason for Visit [facility] Physical Therapy (Routine) - Closed Specialty Diagnoses / Procedures Referred By Contact Refer red To Contact Rayo Whitehead, MARÍA [facility] [address] [facility] E MED [address] [place] [address] Referral ID Status Reason Start Date Expiration Date Visits Requ ested Visits Authorized HP - FOOT Closed 01/03/2010 06/10/2010 12 10 Encounter Details Date Type Department Care Team Description 01/27/2010 Therapy Visit [place] for Graciela Dupree, PT Other Peripheral Athletic Medicine - [address] Enthesopathies (Primary [place] Physical [place] [address] Dx) Therapy [phone] [address] (Work) [place] [id number] Social History Tobacco Use Types Packs/Day Years [...] organizations such as No 08/08/2019 synagogue groups, [employer], fraYouneeq or athletic groups, or school groups? How [...] Procedure Name Priority Date/Time Associated Diagnosis Comme [facility] ZZC THERAPEUTIC Routine 01/27/2010 4:19 PM Other Peripheral EXERCISES CDT Enthesopathies Z ELECTRIC CURRENT Routine 01/27/2010 4:19 PM Other Peripher al THERAPY CDT Enthesopathies [facility] MANUAL THER Routine 01/27/2010 4:19 PM Other Peripheral TECH,1+REGIONS,EA 15 CDT Enthesopathies MIN documented in this encounter Visit Diagnoses Diagnosis Other peripheral enthesopathies - Primar y documented in this encounter Care Teams Php Website Developer Relationship Specialty Start Date End Date Danilo-Selma Mccoy, BROADBAND ENGINEER DIGITAL ART DIRECTOR PCP - General 04/09/08 04/07/15 [address] [facility] [address] [place], [place] [address] documented as of this encounter
--- OUTSIDE RECORDS SUMMARY | 2022-05-09 13:35 | XMS_ITS | Encounter Summary ---
:1965 Author Organization [facility] Address [address] [place] [address] Care Team Providers Name Role Phone Selma Good APRN HEALTH SCIENCE SPECIALIST Primary Care Provider [phone] Reason for Visit [facility] Physical Therapy (Routine) - Closed Specialty Diagnoses / Procedures Referred By Contact Refer red To Contact Rayo Whitehead, MARÍA [facility] [address] [facility] E MED [address] [place] [address] Referral ID Status Reason Start Date Expiration Date Visits Requ ested Visits Authorized HP - FOOT Closed 01/03/2010 06/10/2010 12 10 Encounter Details Date Type Department Care Team Description 01/25/2010 Therapy Visit [place] for Graciela Dupree, PT Other Peripheral Athletic Medicine - [address] Enthesopathies (Primary [place] Physical [place] [address] Dx) Therapy [phone] [address] (Work) [place] [id number] Social History Tobacco Use Types Packs/Day Years [...] How often do you attend congregation or anabaptism Patient refused 08/08/2019 services? Do you belong to any clubs or organizations such as No 08/08/2019 congregation groups, Balak[employer], fraGeriJoy or athletic groups, or school groups? How [...] readiness to progress to higher level exercises. FIRE PROTECTION EQUIPMENT TECHNICIAN/ATC plan: N/A Please refer to the daily flowsheet for treatment today, total treatment time and time spent performing 1:1 timed codes. documented in this encounter Plan of Treatment Not on filedocumented as of this encounter Procedures Procedure Name Priority Date/Time Associated Diagnosis Comme nts ZC MANUAL THER Routine 01/25/2010 5:45 PM Other Peripheral TECH,1+REGIONS,EA 15 CDT Enthesopathies MIN ZZC THERAPEUTIC Routine 01/25/2010 5:45 PM Other Peripheral EXERCISES CDT Enthesopathies ZZC ELECTRIC CURRENT Routine 01/25/2010 5:45 PM Other Peripher al THERAPY CDT Enthesopathies documented in this encounter Visit Diagnoses Diagnosis Other peripheral enthesopathies - Primar y documented in this encounter Care Teams Manager E Commerce Relationship Specialty Start Date End Date Danilo-Selma Mccoy, SCREW DOWN HEALTH SCIENCE SPECIALIST PCP - General 04/09/08 04/07/15 [address] [facility] [place] [address] documented as of this encounter
--- OUTSIDE RECORDS SUMMARY | 2022-05-09 13:35 | XMS_ITS | Encounter Summary ---
:1965 Author Organization [place] Address [address] [place] [address]. [place] [address] Care Team Providers Name Role Phone Selma Good APRN FEATHER RENOVATOR Primary Care Provider [phone] Encounter Details Date Type Department Care Team Description 07/16/2010 Historic Results [facility] Kylah Howard, [address] [place] [address] [address] [place], [place] [address] NEUROLOGY [phone] [address] [facility] ROS[address]AN [address] [place], [place] [address] (Wo rk) Social History [...] How often do you attend mormonism or yazidi Patient refused 08/08/2019 services? Do [...] 07/16/2010 11:00 AM Res ults for this COMPLAINT CLERK procedure are i n the results section. documented in this encounter Results (ABNORMAL) Electrolyte panel (07/16/2010 11:00 AM COMPLAINT CLERK) P athologist Signature Sodium 145 (H) 133 - 144 [place] mmol/L Potassium 4.0 3.4 - 5.3 [place] mmol/L Chloride 108 94 - 109 [place] mmol/L Carbon Dioxide 28 20 - 32 [place] mmol/L Anion Gap 9 6 - 17 [place] mmol/L Specimen Anatomical Collection Method Collection Time Receive d Time (Source) Location / / Volume Laterality 07/16/2010 11:00 07/16/2010 AM COMPLAINT CLERK 10:57 AM COMPLAINT CLERK Kylah Howard MD LAB - BLOOD ORDERABLES Performing Organization Address City/State/ZIP Code Phon e Number [facility] documented in this encounter Visit Diagnoses Not on filedocumented in this encounter Care Teams Manual Lathe Operator Relationship Specialty Start Date End Date Selma Good APRN FEATHER RENOVATOR PCP - General 04/09/08 04/07/15 [address] [facility] [place] [address] documented as of this encounter
--- OUTSIDE RECORDS SUMMARY | 2022-05-09 13:35 | XMS_ITS | Encounter Summary ---
:1965 Author Organization [facility] Address [address] [place] [address] Care Team Providers Name Role Phone Selma Good APRN DISTRIBUTION ANALYST Primary Care Provider [phone] Reason for Visit [facility] Physical Therapy (Routine) - Closed Specialty Diagnoses / Procedures Referred By Contact Refer red To Contact Rayo Whitehead, MARÍA [facility] [address] [place] [address] [address] [place] [address] Referral ID Status Reason Start Date Expiration Date Visits Requ ested Visits Authorized HP - FOOT Closed 01/03/2010 06/10/2010 12 10 Encounter Details Date Type Department Care Team Description 02/02/2010 Therapy Visit [place] [facility] Athletic Medicine - Sal Gonzales Enthesopathies (Primary [place] Physical [address] Dx) Therapy YEYO [address] [place] [address] Dr. CORDOBA, [place] [address] [phone] Social History Tobacco Use Types Packs/Day Years [...] How often do you attend anglican or lutheran Patient refused 08/08/2019 services? Do you belong to any clubs or organizations such as No 08/08/2019 anglican groups, [employer], fraternal or athletic groups, or school groups? [...] y documented in this encounter Care Teams Learning Manager Relationship Specialty Start Date End Date Selma Good, ALLOCATIONS CLERK DISTRIBUTION ANALYST PCP - General 04/09/08 04/07/[address] [facility] [address] [place], [place] [address] documented as of this encounter
--- OUTSIDE RECORDS SUMMARY | 2022-05-09 13:35 | XMS_ITS | Encounter Summary ---
:1965 Author Organization [place] Address [address] [place] [address] Care Team Providers Name Role Phone Selma Good APRN HOD CARRIER Primary Care Provider [phone] Reason for Visit Reason Comments Diabetes Education Encounter Details Date Type Department Care Team Description 01/26/2010 Office Visit [facility] Arianna Caldwell Prediabetes (Primary Dx); XX RESIGNED XX DM w/o Complication Type II, [place] [address] (Wo rk) Social History Tobacco [...] Body Mass Index 37.11 07/12/2009 4:06 PM OVER THE HORIZON TARGETING SUPERVISOR documented in this encounter Patient Instructions [...] up: I will follow up with my perioperative educator: At classes or in a couple [...] since last visit Language(s) spoken at home: Salvadorean ROS: Patient experiencing the following diabetes related [...] uncontrolled documented in this encounter Care Teams Business Functional Analyst Relationship Specialty Start Date End Date Danilo-Selma Mccoy, SITECORE DEVELOPER HOD CARRIER PCP - General 04/09/08 04/07/[address] [facility] [address] [place], [place] [address] documented as of this encounter
--- OUTSIDE RECORDS SUMMARY | 2022-05-09 13:35 | XMS_ITS | Encounter Summary ---
:1965 Author Organization [facility] Address [address] [place] [address] Care Team Providers Name Role Phone Selma Good APRN NEWS DEPARTMENT INTERN Primary Care Provider [phone] Reason for Visit Reason Comments RECHECK Pt is here for a f/u visit f or diabetes Encounter Details Date Type Department Care Team Description 02/15/2010 Office Visit [facility] Florentino, Type 2 Diab etes, HbA1c Goal < 7% (H) (Primary Dx); Pino Angelse, SEAN Hyperlipidemia LDL Goal <100 ; [address] [facility] Hypertension Goal BP (Blood Pressure) < 130/80 [place] [phone] [address] [facility] [phone] [facility] DAV[place] [id number] Social History Tobacco Use Types Packs/Day Years [...] Body Mass Index 36.76 07/12/2009 4:06 PM EMPLOYMENT EDUCATIONAL COORD documented in this encounter Patient Instructions Patient InstructionsSelma Good 02/15/2010 5:35 PM CDT Start simvastatin daily [...] OR TABS Histories reviewed and updated in [facility]. Shayy Ramos MA REVIEW OF [...] hypertension documented in this encounter Care Teams Signal Engineer Relationship Specialty Start Date End Date Selma Good, BINDERY WORKER NEWS DEPARTMENT INTERN PCP - General 04/09/08 04/07/[address] [facility] [address] [place], [place] [address] documented as of this encounter
--- OUTSIDE RECORDS SUMMARY | 2022-05-09 13:35 | XMS_ITS | Encounter Summary ---
:1965 Author Organization [facility] Address [address] [place] [address]. [place] [address] Care Team Providers Name Role Phone Selma Good APRN LENS CUTTER Primary Care Provider [phone] Reason for Visit Reason Comments Vaginal Problem c/o vaginal itching and disc harge x 2 mos,has tried OTC Monistat 7 day with previous relief Flu Shot Encounter Details Date Type Department Care Team Description 03/09/2011 Office Visit [facility] Vanda Guerrero vaginosis (Primary Dx); Pino Toribio MD Vaginal candidiasis; [address] [place] [address] Migraine headaches; [place] [phone] [facility] Need for prophylactic vaccination and in oculation against influenza [phone] [place] [address] (Wo rk) Social History [...] How often do you attend yarsanism or judaism Patient refused 08/08/2019 services? 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 She usually follows with Dr Howard for [...] 03/09/2011 10:00 AM CDT >> ADALBERTO VILLAFANA [facility] Mar 09, 2011 10:14 AM Patient [...] to contact lens solution/thimerosol? No History of Guillain-[place] syndrome? No Undergoing chemotherapy or radiation therapy? [...] Results Wet prep (03/09/2011 10:04 AM CDT) [facility] Method Time Signature Specimen Vagina [place] Description [facility] Wet Prep No Trichomonas seen [place] Clue cells seen [facility] Yeast seen LAB Micro Report FINAL [place] Status 03/09/2011 [facility] Specimen Anatomical Collection Method Collection Time Receive d Time (Source) Location / / Volume Laterality 03/09/2011 10:04 03/09/2011 AM CDT 10:09 AM CDT Vanda Guerrero MD LAB - MICRO GENERAL ORDERABL ES Performing Organization Address City/State/ZIP Code Phon e Number [address] [address] [facility] documented in this encounter Visit Diagnoses Diagnosis Bacterial vaginosis - Primary Vaginitis and vulvovaginitis, unspecifie d Vaginal candidiasis Candidiasis of vulva and vagina Migraine headaches Migraine, unspecified, without mention o f intractable migraine without mention of status migrainosus Need for prophylactic vaccination and in oculation against influenza documented in this encounter Care Teams District Recruiter Relationship Specialty Start Date End Date Danilo-Selma Mccoy, JIG BOX OPERATOR LENS CUTTER PCP - General 04/09/08 04/07/[address] [place] [address] documented as of this encounter
--- OUTSIDE RECORDS SUMMARY | 2022-05-09 13:35 | XMS_ITS | Encounter Summary ---
:1965 Author Organization [place] Address [facility] [place] [address] Care Team Providers Name Role Phone Selma Good APRN [facility] Primary Care Provider Reason for Referral - Closed Specialty Diagnoses / Procedures Referred By Contact Refer red To Contact Diagnoses Back pain Selma Good APRN [facility] [address] [facility] [address] [place] [address] Referral ID Status Reason Start Date Expiration Date Visits Requ ested Visits Authorized [id number] Closed 04/08/2010 04/08/2010 1 1 Reason for Visit Reason Comments RECHECK Pt is here today to review l ab results. Also she would like to discuss some of the medications (Metformi n) she is currently taking. Encounter Details Date Type Department Care Team Description 04/08/2010 Office Visit [facility] Florentino, Migraine he adaches; Pino Angeles APRN Type 2 diabetes, HbA1C goal < 7% (H); [address] [facility] Hyperlipidemia LDL goal <100; [place] [phone] [address] [facility] Hypertension goal BP (blood pressure) < 130/80; [phone] NASIR ANDRE Back pain; [place] [address] Need for prophylactic vaccination and in oculation [...] How often do you attend gnosticism or orthodox Patient refused 08/08/2019 services? Do [...] Body Mass Index 35.49 07/12/2009 4:06 PM BLOCK FEEDER documented in this encounter Patient Instructions [...] Expect a phone call to schedule with [facility] to discuss back pain. Schedule Mammogram: [facility] at documented in this [...] OR TABS Histories reviewed and updated in [facility]. REVIEW OF SYSTEMS: C: NEGATIVE for fatigue, [...] tablet 724.5E Back pain Comment: Plan: ORTHO FUR FEEDER REFERRAL V04.81 Need for prophylactic vaccination and [...] Expect a phone call to schedule with [facility] to discuss back pain. Schedule Mammogram: [facility] at documented in this encounter Nursing Notes 04/08/2010 4:45 PM CDT >> ALISA RAMOS Fri Apr 08, 2010 4:54 PM Patient presents [...] Priority Date/Time Associated Diagnosis Comme nts ORTHOPEDIC FUR FEEDER Routine 09/20/2010 Back pain Results for this REFERRAL procedure are i n the results section . documented in this encounter Results ORTHO FUR FEEDER REFERRAL (09/20/2010) Impressions Yoly Blackwell - 09/20/2010 Dates & times dont work for her right now, she has no PTO time left. She will call back and make an jairo ointment next year Narrative This result has an attachment that is no t available. Selma Good APRN COPY AND PRINT ASSOCIATE REFERRAL documented in this encounter Visit Diagnoses [...] influenza documented in this encounter Care Teams Decontaminator Relationship Specialty Start Date End Date Selma Good APRN COPY AND PRINT ASSOCIATE PCP - General 04/09/08 04/07/15 [address] [facility] [place] [address] documented as of this encounter
--- OUTSIDE RECORDS SUMMARY | 2022-05-09 13:35 | XMS_ITS | Encounter Summary ---
:1965 Author Organization [facility] Address [address] [place] [address]. [place] [address] Care Team Providers Name Role Phone Selma Good APRN DISTRIBUTING CLERK Primary Care Provider [phone] Reason for Referral Referral not Required - Closed Specialty Diagnoses / Procedures Referred By Contact Refer red To Contact Diagnoses Pain in the foot Plantar fascial fibromatosis Rayo Whitehead DPM [facility] [address] [facility] [address] [place] [address] Referral ID Status Reason Start Date Expiration Date Visits Requ ested Visits Authorized [id number] Closed 12/31/2009 12/31/2009 1 1 Reason for Visit Reason Comments Musculoskeletal Problem right foot arch and heel valdo n. Encounter Details Date Type Department Care Team Description 12/31/2009 Office Visit [facility] Rayo Whitehead Pain in the Foot (Primary Dx); Pino Jacome DPM Plantar Fascial Fibromatosis [address] [place] [address] E [phone] [address] [place], [place] [address] Social History Tobacco Use Types [...] How often do you attend confucianism or anglican Patient refused 08/08/2019 services? Do you belong to any clubs or organizations such as No 08/08/2019 confucianism groups, Atavists, fraAmpulse or athletic groups, or school groups? How [...] completed using cuff size: large right Liana Dagen, RAW SCALES OPERATOR documented in this encounter Plan of [...] fibromatosis documented in this encounter Care Teams Exhibit Display Representative Relationship Specialty Start Date End Date Danilo-Selma Mccoy, SURGERY TECHNICIAN DISTRIBUTING CLERK PCP - General 04/09/08 04/07/15 [address] [facility] [place] [address] documented as of this encounter
--- OUTSIDE RECORDS SUMMARY | 2022-05-09 13:35 | XMS_ITS | Encounter Summary ---
:1965 Author Organization [facility] Address [address] [place] [address] Care Team Providers Name Role Phone Selma Good APRN WHEY DEPARTMENT OPERATOR Primary Care Provider [phone] Reason for Visit [facility] Physical Therapy (Routine) - Closed Specialty Diagnoses / Procedures Referred By Contact Refer red To Contact Rayo Whitehead, MARÍA [facility] [address] [place] [address] [address] [place] [address] Referral ID Status Reason Start Date Expiration Date Visits Requ ested Visits Authorized HP - FOOT Closed 01/03/2010 06/10/2010 12 10 Encounter Details Date Type Department Care Team Description 01/31/2010 Therapy Visit [place] for [facility] Athletic Medicine - Sal Gonzales Enthesopathies (Primary [place] Physical [address] Dx) Therapy [address] [place] [address] Dr. CORDOBA, [facility] [place] [address] [phone] Social History Tobacco Use Types Packs/Day Years [...] How often do you attend orthodox or mu-ism Patient refused 08/08/2019 services? Do you belong to any clubs or organizations such as No 08/08/2019 orthodox groups, [employer], fraternal or athletic groups, or school groups? [...] 3:51 PM Other Peripheral EXERCISES CDT Enthesopathies ZZ ELECTRIC CURRENT Routine 01/31/2010 3:51 PM Other Peripher al THERAPY CDT Enthesopathies documented in this encounter Visit Diagnoses Diagnosis Other peripheral enthesopathies - Primar y documented in this encounter Care Teams Founder Relationship Specialty Start Date End Date Selma Good, KNIFE GRINDER WHEY DEPARTMENT OPERATOR PCP - General 04/09/08 04/07/15 [address] [facility] [place] [address] documented as of this encounter
--- OUTSIDE RECORDS SUMMARY | 2022-05-09 13:35 | XMS_ITS | Encounter Summary ---
:1965 Author Organization [facility] Address [address] [place] [address]. [place] [address] Care Team Providers Name Role Phone Selma Good APRN FOOD OPERATIONS MANAGER Primary Care Provider [phone] Encounter Details Date Type Department Care Team Description 08/03/[address] [facility] Eag an Type 2 diabetes, HbA1C 1440 [...] often do you attend latter day or worship Patient refused 08/08/2019 services? Do [...] Type 2 diabetes, Res ults for this GUN NUMBER HbA1C goal < 7% (H) procedur e are in the results section . documented in this encounter Results Hemoglobin A1c (08/03/2010 9:25 AM GUN NUMBER) athologist Signature Hemoglobin A1C 6.0 4.3 - 6.0 [facility] Specimen Anatomical Collection Method Collection Time Receive d Time (Source) Location / / Volume Laterality Blood specimen 08/03/2010 9:25 AM 011 9:30 (specimen) GUN NUMBER AM GUN NUMBER Selma Good APRN FOOD OPERATIONS MANAGER LAB - BLOOD ORDERABLES Performing Organization Address City/State/ZIP Code Phon e Number [facility] [address] [place] [address] [facility] documented in this encounter Visit Diagnoses Diagnosis Type 2 diabetes, HbA1c goal < 7% (H) - P rimary Type II or unspecified type diabetes sukhdev litus without mention of complication, not stated as uncontrolled documented in this encounter Care Teams Merit System Director Relationship Specialty Start Date End Date Selma Good APRN FOOD OPERATIONS MANAGER PCP - General 04/09/08 04/07/15 [address] [facility] [address] documented as of this encounter
--- OUTSIDE RECORDS SUMMARY | 2022-05-09 13:35 | XMS_ITS | Encounter Summary ---
:1965 Author Organization [facility] Address [address] [place] [address] Care Team Providers Name Role Phone Selma Good APRN MIXING TECHNICIAN Primary Care Provider [phone] Reason for Visit [facility] Physical Therapy (Routine) - Closed Specialty Diagnoses / Procedures Referred By Contact Refer red To Contact Rayo Whitehead, MARÍA [facility] [address] [facility] E MED [address] [place] [address] Referral ID Status Reason Start Date Expiration Date Visits Requ ested Visits Authorized HP - FOOT Closed 01/03/2010 06/10/2010 12 10 Encounter Details Date Type Department Care Team Description 01/14/2010 Therapy Visit [place] for Graciela Dupree, PT Other Peripheral Athletic Medicine - [address] Enthesopathies (Primary [place] [facility] [place] [address] Dx) Therapy [phone] [address] (Work) [place] [id number] Social History Tobacco Use Types Packs/Day Years [...] How often do you attend zoroastrianism or mandaeism Patient refused 08/08/2019 services? Do you belong to any clubs or organizations such as No 08/08/2019 zoroastrianism groups, [employer], fraChorPpay or athletic groups, or school groups? How [...] for this information) Short term and terminal gauger goals: (See Goal Flow Sheet for this [...] y documented in this encounter Care Teams Water Mechanic Relationship Specialty Start Date End Date Selma Good APRN MIXING TECHNICIAN PCP - General 04/09/08 04/07/[address] [facility] [address] [place], [place] [address] documented as of this encounter
--- OUTSIDE RECORDS SUMMARY | 2022-05-09 13:35 | XMS_ITS | Encounter Summary ---
:1965 Author Organization [facility] Address [address] [place] [address] Care Team Providers Name Role Phone Selma Good APRN AUTO PAINTER HELPER Primary Care Provider [phone] Reason for Visit [facility] Physical Therapy (Routine) - Closed Specialty Diagnoses / Procedures Referred By Contact Refer red To Contact Rayo Whitehead, MAR[facility]A [facility] [address] [facility] E MED [address] [place] [address] Referral ID Status Reason Start Date Expiration Date Visits Requ ested Visits Authorized HP - FOOT Closed 01/03/2010 06/10/2010 12 10 Encounter Details Date Type Department Care Team Description 01/20/2010 Therapy Visit [place] for Janice Dc, PT Other Peripheral Athletic Medicine - [address] Enthesopathies (Primary [place] Physical [place] [address] Dx) Therapy [phone] [address] (Work) [place] [id number] Social History Tobacco Use Types Packs/Day Years [...] How often do you attend sikh or hoahaoism Patient refused 08/08/2019 services? Do you belong to any clubs or organizations such as No 08/08/2019 sikh groups, [employer], fraShellcatch or athletic groups, or school groups? How [...] Date/Time Associated Diagnosis Comme [facility] Z ELECTRIC CURRENT Routine 01/20/2010 5:14 PM Other Peripher al THERAPY CDT Enthesopathies documented in this encounter Visit Diagnoses Diagnosis Other peripheral enthesopathies - Primar y documented in this encounter Care Teams District Plant Engineer Relationship Specialty Start Date End Date Selma Good, SEAN AUTO PAINTER HELPER PCP - General 04/09/08 04/07/15 [address] [facility] [place] [address] documented as of this encounter
--- OUTSIDE RECORDS SUMMARY | 2022-05-09 13:35 | XMS_ITS | Encounter Summary ---
:1965 Author Organization [facility] Address [address] [place] [address] Care Team Providers Name Role Phone Selma Good APRN TEST CONSULTANT Primary Care Provider [phone] Reason for Visit Reason Onset Date Comments Refill Request 10/14/2010 change Omeprazole Rx to mail order pharmacy Encounter Details Date Type Department Care Team Description 10/14/2010 Refill [facility] Eag Selma Anthony Refill Request (change [address] [facility] SEAN [place] TEST CONSULTANT Omeprazole Rx to mail [place] [phone] [place] [address] pharmacy) [phone] [facility] [place] [id number] (Wo rk) Social History Tobacco Use Types [...] How often do you attend sabianism or presybeterian Patient refused 08/08/2019 services? Do [...] 9:28 AM CDT Requesting Rx sent to [facility] mail order pharmacy instead of [facility]. Rx faxed to [facility]. Thea Winchester RN documented in this encounter Plan of Treatment Not on filedocumented as of this encounter Visit Diagnoses Diagnosis GERD (gastroesophageal reflux disease) - Primary Esophageal reflux documented in this encounter Care Teams Ski Top Trimmer Relationship Specialty Start Date End Date Danilo-Selma Mccoy APRN TEST CONSULTANT PCP - General 04/09/08 04/07/15 [address] [facility] [place] [address] documented as of this encounter
--- OUTSIDE RECORDS SUMMARY | 2022-05-09 13:35 | XMS_ITS | Encounter Summary ---
:1965 Author Organization [facility] Address [address] [place] [address] Care Team Providers Name Role Phone Selma Good APRN LEATHER SCRAPER Primary Care Provider [phone] Reason for Visit [facility] Physical Therapy (Routine) - Closed Specialty Diagnoses / Procedures Referred By Contact Refer red To Contact Rayo Whitehead, MAR[facility]A [facility] [address] [facility] E MED [address] [place] [address] Referral ID Status Reason Start Date Expiration Date Visits Requ ested Visits Authorized HP - FOOT Closed 01/03/2010 06/10/2010 12 10 Encounter Details Date Type Department Care Team Description 01/18/2010 Therapy Visit [place] for Graciela Dupree, PT Other Peripheral Athletic Medicine - [address] Enthesopathies (Primary [place] Physical [place] [address] Dx) Therapy [phone] [address] (Work) [place] [id number] Social History Tobacco Use Types Packs/Day Years [...] How often do you attend islam or mandaeism Patient refused 08/08/2019 services? Do you belong to any clubs or organizations such as No 08/08/2019 islam groups, tolingos, fraCashCashPinoy or athletic groups, or school groups? How [...] Diagnosis Comme nts Z MANUAL THER Routine 01/18/2010 4:54 PM Other Peripheral TECH,1+REGIONS,EA 15 CDT Enthesopathies MIN ZZC THERAPEUTIC Routine 01/18/2010 4:54 PM Other Peripheral EXERCISES CDT Enthesopathies ZZC ELECTRIC CURRENT Routine 01/18/2010 4:54 PM Other Peripher al THERAPY CDT Enthesopathies documented in this encounter Visit Diagnoses Diagnosis Other peripheral enthesopathies - Primar y documented in this encounter Care Teams Instructor Adjunct Pharmacy Technician Relationship Specialty Start Date End Date Danilo-Selma Mccoy, EQUITY HOLDER LEATHER SCRAPER PCP - General 04/09/08 04/07/[address] [facility] [address] [place], [place] [address] documented as of this encounter
--- OUTSIDE RECORDS SUMMARY | 2022-05-09 13:35 | XMS_ITS | Encounter Summary ---
:1965 Author Organization [facility] Address [address] [place] [address] Care Team Providers Name Role Phone Selma Bullard INTERNATIONAL SPECIALIST SENIOR MARKET INTELLIGENCE CONSULTANT Primary Care Provider [phone] Reason for Visit Reason Onset Date Comments Cellulitis 08/29/2010 Encounter Details Date Type Department Care Team Description 08/29/2010 Telephone [facility] Eag Selma Anthony, Cellulitis [address] [facility] INTERNATIONAL SPECIALIST SENIOR MARKET INTELLIGENCE CONSULTANT [place] [phone] [address] [facility] [phone] [facility] [place] [address] (Wo rk) Social [...] How often do you attend zoroastrianism or holiness Patient refused 08/08/2019 services? Do [...] on filedocumented in this encounter Care Teams Glue Wheel Operator Relationship Specialty Start Date End Date Selma Bullard, INTERNATIONAL SPECIALIST SENIOR MARKET INTELLIGENCE CONSULTANT PCP - General 04/09/08 04/07/[address] [place] [address] documented as of this encounter
--- OUTSIDE RECORDS SUMMARY | 2022-05-09 13:35 | XMS_ITS | Encounter Summary ---
:1965 Author Organization [facility] Address [address] [place] [address] Care Team Providers Name Role Phone Selma Good APRN ELECTRIC PLATER Primary Care Provider [phone] Reason for Visit Reason Onset Date Comments Refill Request 06/20/2010 omeprazole Encounter Details Date Type Department Care Team Description 06/20/2010 Refill [facility] Eag Selma Anthony Refill Request [address] [employer] SEAN Angeles ELECTRIC PLATER (omeprazole ) [place] [phone] [facility] [phone] [facility] [place] [address] (Wo [...] How often do you attend jew or zoroastrianism Patient refused 08/08/2019 services? Do [...] per standing order per protocol. Zak JERNIGAN SE COORDINATOR documented in this encounter Plan of Treatment Not on filedocumented as of this encounter Visit Diagnoses Diagnosis GERD (gastroesophageal reflux disease) - Primary Esophageal reflux documented in this encounter Care Teams Commercial Collections Driver Relationship Specialty Start Date End Date Danilo-Selma Mccoy, HOME HEALTH NURSE ELECTRIC PLATER PCP - General 04/09/08 04/07/15 [address] [facility] [place] [address] documented as of this encounter
--- OUTSIDE RECORDS SUMMARY | 2022-05-09 13:35 | XMS_ITS | Encounter Summary ---
:1965 Author Organization [facility] Address [address] [place] [address]. [place] [address] Care Team Providers Name Role Phone Selma Good APRN PHARMACIST HOSPITAL Primary Care Provider [phone] Encounter Details Date Type Department Care Team Description 03/11/2010 [facility] Results [address] [facility] [address] [place] [address] (Wo rk) Social History Tobacco Use Types [...] of nocturnal enuresis as a child. Megan [place] Sleepiness Score is 12/24 consistent with mild [...] allowed in her bed. 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 She denies having ever smoked cigarettes. Denies [...] 1. Polysomnogram split night with titration at [facility]. Pathophysiology, risk factors, and implications of untreated [...] pamphlet on sleep hygiene produced by the [place] [employer] and was encouraged [...] and coordination of care. Part two job #[id number] p.m. a.m. mary kate Electronically signed on 03/18/2010 12:44 by RICARDO SOTELO PA-C MT: mary kate Name: MEGAN CHOI Account: [id number] : 1965 Visit Date: 03/11/2010 Document: [id number] cc: Selma Good EMBEDDED FIRMWARE ENGINEER documented in this encounter Plan of Treatment Not on filedocumented as of this encounter Visit Diagnoses Not on filedocumented in this encounter Care Teams Mail Clerk Relationship Specialty Start Date End Date Selma Good, SEAN PHARMACIST HOSPITAL PCP - General 04/09/08 04/07/15 [address] [facility] [place] [address] documented as of this encounter
--- OUTSIDE RECORDS SUMMARY | 2022-05-09 13:35 | XMS_ITS | Encounter Summary ---
:1965 Author Organization [facility] Address [address] [place] [address]. [place] [address] Care Team Providers Name Role Phone Selma Good APRN EXERCISE PLANNER Primary Care Provider [phone] Encounter Details Date Type Department Care Team Description 04/29/2011 Orders Only [facility] Eag an Type 2 diabetes, HbA1C 1440 [...] How often do you attend anabaptist or quaker Patient refused 08/08/2019 services? Do [...] 2 diabete s, Results for this QUANTITATIVE DIAMOND POWDER MIXER HbA1C goal < 7% (H) procedur e are in the results section. LIPID REFLEX TO DIRECT Routine 04/29/2011 8:15 AM Type 2 diabe shirley, Results for this LDL PANEL DIAMOND POWDER MIXER HbA1C goal < 7% (H) procedur e are in the results section. HEMOGLOBIN A1C Routine 04/29/2011 8:15 AM Type 2 diabetes, Res ults for this DIAMOND POWDER MIXER HbA1C goal < 7% (H) procedur e are in the results section. COMPREHENSIVE Routine 04/29/2011 8:15 AM Type 2 diabetes, Resu lts for this METABOLIC PANEL DIAMOND POWDER MIXER HbA1C goal < 7% (H) proce dure are in the results section. documented in this encounter Results Microalbumin quantitative, random urine (04/29/2011 8:16 AM DIAMOND POWDER MIXER) P athologist Signature Creatinine 241 mg/dL [facility] Urine [facility] Albumin Urine 10 mg/L [facility] mg/L [facility] Albumin Urine 4.27 0 - 20 [facility] mg/g Cr mg/g Cr [facility] Specimen Anatomical Collection Method Collection Time Receive d Time (Source) Location / / Volume Laterality Urine specimen 04/29/2011 8:16 AM 011 8:17 (specimen) DIAMOND POWDER MIXER AM DIAMOND POWDER MIXER Selma Good APRN EXERCISE PLANNER LAB - URINE ORDERABLES Performing Organization Address City/State/ZIP Code Phon e Number [facility] [address] [place] [address] [facility] Comprehensive metabolic panel (BMP + Alb, Alk Phos, ALT, AST, Total. Bili, TP) (04/29/2011 8:15 AM DIAMOND POWDER MIXER) athologist Signature Sodium 142 133 - 144 [place] mmol/L [facility] Potassium 3.9 3.4 - 5.3 [place] [facility] mmol/L [facility] Chloride 107 94 - 109 [place] [facility] mmol/L [facility] Carbon Dioxide 25 20 - 32 [place] [facility] mmol/L [facility] Anion Gap 10 6 - 17 [place] [facility] mmol/L [facility] Glucose 97 60 - 99 [place] [facility] mg/dL [facility] Urea Nitrogen 13 5 - 24 [place] [facility] mg/dL [facility] Creatinine 0.74 0.52 - [place] 1.04 mg/dL [facility] GFR Estimate 84 >60 [place] [facility] mL/min/1.7 [facility] m2 GFR Estimate If >90 >60 [place] [facility] Black mL/min/1.7 [facility] m2 Calcium 9.3 8.5 - 10.4 [place] [facility] mg/dL [facility] Bilirubin Total 0.7 0.2 - 1.3 [place] [facility] mg/dL [facility] Albumin 4.1 3.9 - 5.1 [place] [facility] g/dL [facility] Comment: Reference range changed on 02/10. Protein Total 7.5 6.8 - 8.8 g/dL [facility] Comment: As of 07, reference range reflects plasma specimen type. Alkaline Phosphatase 78 40 - 150 U/L [facility] ALT 19 0 - 50 U/L [facility] AST 21 0 - 45 U/L [facility] Specimen Anatomical Collection Method Collection Time Receive d Time (Source) Location / / Volume Laterality Blood specimen 04/29/2011 8:15 AM 011 8:17 (specimen) DIAMOND POWDER MIXER AM DIAMOND POWDER MIXER Selma Good APRN EXERCISE PLANNER LAB - BLOOD ORDERABLES Performing Organization Address City/[facility]/ZIP Code Phon e Number [facility] [address] [place] [address] [phone] [facility] (ABNORMAL) Lipid Profile with reflex to direct LDL (04/29/2011 8:15 AM DIAMOND POWDER MIXER) athologist Signature Cholesterol 123 0 - 200 [facility] mg/dL CLINIC LAB Comment: LDL Cholesterol is the primary guide to therapy. The NCEP recommends further evaluation of: patients with cholesterol greater than 200 mg/dL if additional risk facto rs are present, cholesterol greater than 240 mg/dL, triglycerides greater than 1 50 mg/dL, or HDL less than 40 mg/dL. Triglycerides 63 0 - 150 mg/dL [facility] HDL Cholesterol 40 (L) 50 - 110 mg/dL [facility] LDL Cholesterol Calculated 70 0 - 129 mg/dL [facility] Comment: LDL Cholesterol is the primary guide to therapy: LDL-cholesterol goal in high risk patients is <100 mg/dL and in very high risk patients is <70 mg/dL. VLDL-Cholesterol 13 0 - 30 mg/dL [facility] Cholesterol/HDL Ratio 3.1 0.0 - 5.0 [facility] Specimen Anatomical Collection Method Collection Time Receive d Time (Source) Location / / Volume Laterality Blood specimen 04/29/2011 8:15 AM 011 8:17 (specimen) DIAMOND POWDER MIXER AM DIAMOND POWDER MIXER Selma Good APRN, CNP LAB - BLOOD ORDERABLES Performing Organization Address City/[facility]/ZIP Code Phon e Number [facility] [address] [place] [phone] [facility] Hemoglobin A1c (04/29/2011 8:15 AM DIAMOND POWDER MIXER) athologist Signature Hemoglobin A1C 5.6 4.3 - 6.0 [facility] % CLINIC LAB Specimen Anatomical Collection Method Collection Time Receive d Time (Source) Location / / Volume Laterality Blood specimen 04/29/2011 8:15 AM 011 8:17 (specimen) DIAMOND POWDER MIXER AM DIAMOND POWDER MIXER Selma Good APRN, CNP LAB - BLOOD ORDERABLES Performing Organization Address City/State/ZIP Code Phon e Number [place] [phone] [facility] [place] [address] [facility] documented in this encounter Visit Diagnoses Diagnosis Type 2 diabetes, HbA1c goal < 7% (H) Type II or unspecified type diabetes sukhdev litus without mention of complication, not stated as uncontrolled documented in this encounter Care Teams It Project Lead Relationship Specialty Start Date End Date Selma Good APRN CNP PCP - General 04/09/08 04/07/15 [address] [facility] [place] [address] documented as of this encounter
--- OUTSIDE RECORDS SUMMARY | 2022-05-09 13:36 | XMS_ITS | Encounter Summary ---
:1965 Author Organization [facility] Address [address] [place] [address] Care Team Providers Name Role Phone Selma Good CAMPUS SAFETY OFFICER BRUSHING MACHINE OPERATOR Primary Care Provider [phone] Encounter Details Date Type Department Care Team Description 03/15/[address] [facility] Eag Selma Anthony, [address] [facility] CAMPUS SAFETY OFFICER BRUSHING MACHINE OPERATOR [place] [phone] 9667 [facility] [phone] [facility] [place] [address] [...] How often do you attend mormonism or anabaptism Patient refused 08/08/2019 services? Do [...] Procedure Name Priority Date/Time Associated Diagnosis Comme [facility] NCS MOTOR W/O F-WAVE, EACH Routine 03/08/2009 NERVE documented in this encounter Results MOTOR NERVE CONDUCT TEST (03/08/2009) Specimen (Source) Anatomical Location Collection Method / Collectio n Time Received Time / Laterality Volume 03/08/2009 Narrative This result has an attachment that is no t available. Selma Good APRN BRUSHING MACHINE OPERATOR PROCEDURES documented in this encounter Visit Diagnoses Not on filedocumented in this encounter Care Teams Eligibility And Occupancy Interviewer Relationship Specialty Start Date End Date Selma Good APRN BRUSHING MACHINE OPERATOR PCP - General 04/09/08 04/07/15 [address] [facility] [place] [address] documented as of this encounter
--- OUTSIDE RECORDS SUMMARY | 2022-05-09 13:36 | XMS_ITS | Encounter Summary ---
:1965 Author Organization [facility] Address [address] [place] [address] Care Team Providers Name Role Phone Selma Good APRN TRUCK DRIVER'S OFFSIDER Primary Care Provider [phone] Reason for Visit [facility] Physical Therapy (Routine) - Closed Specialty Diagnoses / Procedures Referred By Contact Refer red To Contact Kylah Howard MD [facility]IC [facility] MED [address] [facility] [address] [place] [address] Referral ID Status Reason Start Date Expiration Date Visits Requ ested Visits Authorized HP - NECK Closed 11/15/2009 06/10/2010 8 8 Encounter Details Date Type Department Care Team Description 12/10/2009 Therapy Visit [place] for Sukhi Rust P T Cervical Pain Athletic Medicine - [facility] [place] (Primary Dx) [facility] [address] [place] [address] [place] [address] [place] [phone] Social History Tobacco Use Types Packs/Day [...] How often do you attend presybeterian or confucianist Patient refused 08/08/2019 services? Do you belong to any clubs or organizations such as No 08/08/2019 presybeterian groups, [employer], [employer]Ph[employer]Creative or athletic groups, or school groups? How [...] Comme [facility] ZZC MANUAL THER Routine 12/10/2009 5:35 PM CDT Cervical Pain TECH,1+REGIONS,EA 15 MIN ZZC THERAPEUTIC Routine 12/10/2009 5:35 PM CDT Cervical Pain EXERCISES documented in this encounter Visit Diagnoses Diagnosis Cervical pain - Primary Cervicalgia documented in this encounter Care Teams Debt Management Counselor Relationship Specialty Start Date End Date Danilo-Selma Mccoy, WIND PROJECT MANAGER TRUCK DRIVER'S OFFSIDER PCP - General 04/09/08 04/07/15 [address] [facility] [address] [place], [place] [address] documented as of this encounter
--- OUTSIDE RECORDS SUMMARY | 2022-05-09 13:36 | XMS_ITS | Encounter Summary ---
:1965 Author Organization [facility] Address [address] [place] [address] Care Team Providers Name Role Phone Selma Good APRN MASONRY INSTRUCTOR Primary Care Provider [phone] Reason for Visit [facility] Physical Therapy (Routine) - Closed Specialty Diagnoses / Procedures Referred By Contact Refer red To Contact Kylah Howard MD [facility]THLETIC [facility] [address] [facility] [address] [place] [address] Referral ID Status Reason Start Date Expiration Date Visits Requ ested Visits Authorized HP - NECK Closed 11/15/2009 06/10/2010 8 8 Encounter Details Date Type Department Care Team Description 12/28/2009 Therapy Visit [place] for Vadim Banda P T Cervical Pain Athletic Medicine - Rehab Services (Prima ry Dx) [facility] Therapy [address] [place] [address] [place] [address] [place] [id number] Social History Tobacco Use Types Packs/Day Years [...] How often do you attend baptist or sikh Patient refused 08/08/2019 services? Do you belong to any clubs or organizations such as No 08/08/2019 baptist groups, tapvivas, fraternal or athletic groups, or school groups? [...] Diagnosis Comme nts ZZC MANUAL THER Routine 12/28/2009 4:45 PM CDT Cervical Pain TECH,1+REGIONS,EA 15 MIN documented in this encounter Visit Diagnoses Diagnosis Cervical pain - Primary Cervicalgia documented in this encounter Care Teams Developmental Mathematics Instructor Relationship Specialty Start Date End Date Danilo-Selma Mccoy, VP OF DIGITAL MARKETING MASONRY INSTRUCTOR PCP - General 04/09/08 04/07/15 [address] [facility] [address] [place], [place] [address] documented as of this encounter
--- OUTSIDE RECORDS SUMMARY | 2022-05-09 13:36 | XMS_ITS | Encounter Summary ---
:1965 Author Organization [facility] Address [address] [place] [address] Care Team Providers Name Role Phone Selma Good APRN WEIGHT AND TEST BAR CLERK Primary Care Provider Reason for Visit Reason Onset Date Comments Erroneous encounter-disregard 04/14/2009 Encounter Details Date Type Department Care Team Description 04/14/2009 Refill [facility] Selma Hodges Erroneous [address], SEAN WEIGHT AND TEST BAR CLERK encounter-disregard [place] [phone] 8[address] [facility] [phone] [facility] [place] [address] (Wo rk) Social [...] LRF 01/17/09 Omeprazole # 90 x 3. TION DIRECTOR documented in this encounter Plan of Treatment Not on filedocumented as of this encounter Visit Diagnoses Diagnosis GERD (gastroesophageal reflux disease) - Primary Esophageal reflux documented in this encounter Care Teams Associate Software Application Engineer Relationship Specialty Start Date End Date Danilo-Selma Mccoy APRN WEIGHT AND TEST BAR CLERK PCP - General 04/09/08 04/07/[address] [facility] [address] documented as of this encounter
--- OUTSIDE RECORDS SUMMARY | 2022-05-09 13:36 | XMS_ITS | Encounter Summary ---
:1965 Author Organization [facility] Address [address] [place] [address]. [place] [address] Care Team Providers Name Role Phone Selma Good APRN FORENSIC MANAGER Primary Care Provider [phone] Reason for Visit [facility] Physical Therapy (Routine) - Closed Specialty Diagnoses / Procedures Referred By Contact Refer red To Contact Rayo Rouse PA-C [facility] [place] [address] [address] [place] [address] Referral ID Status Reason Start Date Expiration Date Visits Requ ested Visits Authorized HP - ELBOW Closed 03/22/2009 06/10/2009 17 15 Encounter Details Date Type Department Care Team Description 03/24/2009 Therapy Visit [place] for Graciela Dupree PT Lateral Epicondylitis Athletic Medicine - [address] of [place] (Primary Dx) [facility] [place] [address] Therapy [phone] (Work) [place] [address] Social History Tobacco Use Types Packs/Day Years [...] How often do you attend confucianism or uatsdin Patient refused 08/08/2019 services? Do you belong to any clubs or organizations such as No 08/08/2019 confucianism groups, [employer], fraternal or athletic groups, or school [...] EXERCISES CDT Elbow ZZC ULTRASOUND THERAPY Routine 03/24/2009 5:23 PM Lateral Epic ondylitis of CDT [place] documented in this encounter Visit Diagnoses Diagnosis Lateral epicondylitis of elbow - Primary Lateral epicondylitis of elbow documented in this encounter Care Teams Linen Room Custodian Relationship Specialty Start Date End Date Danilo-Selma Mccoy, SEARCH ENGINE MARKETING MANAGER FORENSIC MANAGER PCP - General 04/09/08 04/07/15 [address] [facility] [place] [address] documented as of this encounter
--- OUTSIDE RECORDS SUMMARY | 2022-05-09 13:36 | XMS_ITS | Encounter Summary ---
:1965 Author Organization [facility] Address [address] [place] [address]. [place] [address] Care Team Providers Name Role Phone Selam Good APRN POCKET SECRETARY ASSEMBLER Primary Care Provider [phone] Reason for Visit [facility] Physical Therapy (Routine) - Closed Specialty Diagnoses / Procedures Referred By Contact Refer red To Contact Rayo Rouse PA-C [facility] ATHLETIC [place] [address] [address] [place] [address] Referral ID Status Reason Start Date Expiration Date Visits Requ ested Visits Authorized HP - ELB[place] Closed 03/22/2009 06/10/2009 17 15 Encounter Details Date Type Department Care Team Description 04/19/2009 Therapy Visit [place] for Graciela Dupree PT Lateral Epicondylitis Athletic Medicine - [address] of [place] (Primary Dx) [facility] [place] [address] Therapy [phone] (Work) [place] [address] Social History Tobacco Use Types Packs/Day Years [...] How often do you attend moravian or jew Patient refused 08/08/2019 services? Do [...] Medicaid as primary or secondary insurance? NO RIAL CUTTER documented in this encounter Plan of Treatment Not on filedocumented as of this encounter Procedures Procedure Name Priority Date/Time Associated Diagnosis Comme nts ZZC MANUAL THER Routine 04/19/2009 5:30 PM Lateral Epicondylit is of TECH,1+REGIONS,EA 15 MATERIAL CUTTER Elbow MIN ZZC THERAPEUTIC Routine 04/19/2009 5:30 PM Lateral Epicondylit is of EXERCISES MATERIAL CUTTER Elbow Z ULTRASOUND THERAPY Routine 04/19/2009 5:30 PM Lateral Epic ondylitis of MATERIAL CUTTER Elbow documented in this encounter Visit Diagnoses Diagnosis Lateral epicondylitis of elbow - Primary Lateral epicondylitis of elbow documented in this encounter Care Teams Public Address Servicer Relationship Specialty Start Date End Date Danilo-Selma Mccoy, SCREENING UNIT REGISTERED NURSE POCKET SECRETARY ASSEMBLER PCP - General 04/09/08 04/07/15 [address] [facility] [place] [address] documented as of this encounter
--- OUTSIDE RECORDS SUMMARY | 2022-05-09 13:36 | XMS_ITS | Encounter Summary ---
:1965 Author Organization [facility] Address [address] [place] [address] Care Team Providers Name Role Phone Selma Good APRN SMELTING ENGINEER Primary Care Provider [phone] Reason for Visit [facility] Physical Therapy (Routine) - Closed Specialty Diagnoses / Procedures Referred By Contact Refer red To Contact Rayo Rouse PA-C [facility]IC [place] [address], [place] [address] Referral ID Status Reason Start Date Expiration Date Visits Requ ested Visits Authorized HP - ELBOW Closed 03/22/2009 06/10/2009 17 15 Encounter Details Date Type Department Care Team Description 06/01/2009 Therapy Visit [place] for Vadim Banda P T Lateral Epicondylitis Athletic Medicine - Rehab Services of Elisabet govea (Primary Dx) [facility] Therapy [address] [place] [address] [place] [address] [place] [address] Social History Tobacco Use Types Packs/Day Years [...] How often do you attend taoist or sikhism Patient refused 08/08/2019 services? Do [...] Notes Margot Miller - 07/05/2009 5:28 PM SUPERVISOR FUSING ROOM Addended by: MARGOT MILLER on: 07/05/2009 5:28:17 PM Modules accepted: Orders RVISOR FUSING ROOM Margot Miller - 07/05/2009 5:27 PM CST Megan Choi completed therapy on 06-01-09. Please refer to discharge report. RVISOR FUSING ROOM Vadim Banda - 06/01/2009 4:19 PM CST Please refer to the daily flowsheet for treatment today and total treatment time. Does this patient have Medicare or Medicaid as primary or secondary insurance? NO RVISOR FUSING ROOM documented in this encounter Plan of Treatment Not on filedocumented as of this encounter Procedures Procedure Name Priority Date/Time Associated Diagnosis Comme nts ZC MANUAL THER Routine 06/01/2009 4:21 PM Lateral Epicondylit is of TECH,1+REGIONS,EA 15 SUPERVISOR FUSING ROOM Elbow MIN ZZC THERAPEUTIC Routine 06/01/2009 4:21 PM Lateral Epicondylit is of EXERCISES SUPERVISOR FUSING ROOM [place] documented in this encounter Visit Diagnoses Diagnosis Lateral epicondylitis of elbow - Primary Lateral epicondylitis of elbow documented in this encounter Care Teams Fork Assembler Relationship Specialty Start Date End Date Danilo-Selma Mccoy, ARMOR RECONNAISSANCE VEHICLE CREWMAN SMELTING ENGINEER PCP - General 04/09/08 04/07/[address] [facility] [place] [address] documented as of this encounter
--- OUTSIDE RECORDS SUMMARY | 2022-05-09 13:36 | XMS_ITS | Encounter Summary ---
:1965 Author Organization [facility] Address [address] [place] [address] Care Team Providers Name Role Phone Selma Good APRN OFFAL BALER Primary Care Provider [phone] Reason for Visit [facility] Physical Therapy (Routine) - Closed Specialty Diagnoses / Procedures Referred By Contact Refer red To Contact Kylah Howard MD [facility]THLETIC [facility] [address] [facility] [address] [place] [address] Referral ID Status Reason Start Date Expiration Date Visits Requ ested Visits Authorized HP - NECK Closed 11/15/2009 06/10/2010 8 8 Encounter Details Date Type Department Care Team Description 12/14/2009 Therapy Visit [place] for Vadim Banda P T Cervical Pain Athletic Medicine - Rehab Services (Prima ry Dx) [facility]. Therapy [address] [place] [address] [facility] [place] [address] [place] [id number] Social History Tobacco Use Types Packs/Day Years [...] How often do you attend gnosticist or mu-ism Patient refused 08/08/2019 services? Do you belong to any clubs or organizations such as No 08/08/2019 gnosticist groups, [employer], fraternal or athletic groups, or school groups? [...] Cervicalgia documented in this encounter Care Teams Housing Coordinator Relationship Specialty Start Date End Date Danilo-Selma Mccoy, WIRE SPOOLER OFFAL BALER PCP - General 04/09/08 04/07/15 [address] [facility] [place] [address] documented as of this encounter
--- OUTSIDE RECORDS SUMMARY | 2022-05-09 13:36 | XMS_ITS | Encounter Summary ---
:1965 Author Organization [facility] Address [address] [place] [address] Care Team Providers Name Role Phone Selma Good APRN HOMICIDE SQUAD CAPTAIN Primary Care Provider [phone] Reason for Visit [facility] Physical Therapy (Routine) - Closed Specialty Diagnoses / Procedures Referred By Contact Refer red To Contact Kylah Howard MD [facility] ATHLETIC [facility] CL[facility] [address] [facility] [address] [place] [address] Referral ID Status Reason Start Date Expiration Date Visits Requ ested Visits Authorized HP - NECK Closed 11/15/2009 06/10/2010 8 8 Encounter Details Date Type Department Care Team Description 12/24/2009 Therapy Visit [place] for Vadim Banda P T Cervical Pain Athletic Medicine - Rehab Services (Prima ry Dx) [facility] Sports [facility] PT. Therapy [address] [place] [address] [place] [address] [place] [phone] Social History Tobacco Use Types Packs/Day Years [...] How often do you attend hinduism or sabianist Patient refused 08/08/2019 services? Do you belong to any clubs or organizations such as No 08/08/2019 hinduism groups, [employer], fraternal or athletic groups, or school groups? [...] is being advanced to more complex exercises. TOOTH CUTTER CLUTCH/ATC plan: N/A Please refer to the daily flowsheet for treatment today, total treatment time and time spent performing 1:1 timed codes. documented in this encounter Plan of Treatment Not on filedocumented as of this encounter Procedures Procedure Name Priority Date/Time Associated Diagnosis Comme nts [facility]ER Routine 12/24/2009 4:44 PM CDT Cervical Pain TECH,1+REGIONS,EA 15 MIN ZZC THERAPEUTIC Routine 12/24/2009 4:44 PM CDT Cervical Pain EXERCISES documented in this encounter Visit Diagnoses Diagnosis Cervical pain - Primary Cervicalgia documented in this encounter Care Teams Layer Off Relationship Specialty Start Date End Date Selma Good APRN HOMICIDE SQUAD CAPTAIN PCP - General 04/09/08 04/07/15 [address] [facility] [place] [address] documented as of this encounter
--- OUTSIDE RECORDS SUMMARY | 2022-05-09 13:36 | XMS_ITS | Encounter Summary ---
:1965 Author Organization [facility] Address [address] [place] [address] Care Team Providers Name Role Phone Selma Good APRN TOLL TRANSMISSION WORKER Primary Care Provider Reason for Visit Reason Onset Date Comments Headache 12/16/2009 send migraine letter 1 month-01/15/10 Encounter Details Date Type Department Care Team Description 12/16/2009 Telephone [facility] Eag adarsh Good, Headache (send migraine [address] Selma Angeles APRN TOLL TRANSMISSION WORKER letter 1 month-01/15/10 ) [place] [phone] [facility] [phone] [facility] [place] [address] (Wo rk) [...] How often do you attend voodoo or lutheran Patient refused 08/08/2019 services? Do [...] on filedocumented in this encounter Care Teams Weight Loss Centre Manager Relationship Specialty Start Date End Date Danilo-Selma Mccoy APRN TOLL TRANSMISSION WORKER PCP - General 04/09/08 04/07/15 [address] [facility] [address] [place], [place] [address] (work) documented as of this encounter
--- OUTSIDE RECORDS SUMMARY | 2022-05-09 13:36 | XMS_ITS | Encounter Summary ---
:1965 Author Organization [facility] Address [address] [place] [address] Care Team Providers Name Role Phone Selma Good APRN PIPE BENDER Primary Care Provider [phone] Reason for Visit [facility] Physical Therapy (Routine) - Closed Specialty Diagnoses / Procedures Referred By Contact Refer red To Contact Kylah Howard MD [facility]IC [facility] [address] [facility] [address] [place] [address] Referral ID Status Reason Start Date Expiration Date Visits Requ ested Visits Authorized HP - NECK Closed 11/15/2009 06/10/2010 8 8 Encounter Details Date Type Department Care Team Description 12/06/2009 Therapy Visit [place] for Sukhi Rust P T Cervical Pain Athletic Medicine - [facility] [place] (Primary Dx) [facility] [address] [place] [address] [place] [address] [place] [phone] Social History Tobacco Use Types Packs/Day [...] How often do you attend yazidism or rastafarian Patient refused 08/08/2019 services? Do you belong to any clubs or organizations such as No 08/08/2019 yazidism groups, [employer], [employer]ace[employer] or athletic groups, or school groups? How [...] is being advanced to more complex exercises. MINISTER HELPER/ATC plan: N/A Please refer to the [...] documented in this encounter Care Teams Senior Net Programmer Relationship Specialty Start Date End Date Selma Good APRN PIPE BENDER PCP - General 04/09/08 04/07/[address] [place], [place] [address] documented as of this encounter
--- OUTSIDE RECORDS SUMMARY | 2022-05-09 13:36 | XMS_ITS | Encounter Summary ---
:1965 Author Organization [place] Address [address] [place] [address] Care Team Providers Name Role Phone Selma Good APRN PATIENT SERVICE COORDINATOR Primary Care Provider [phone] Reason for Visit [facility] Physical Therapy (Routine) - Closed Specialty Diagnoses / Procedures Referred By Contact Refer red To Contact Kylah Howard MD [facility]LETIC [facility] [address] [facility] 100 [place] [address] Referral ID Status Reason Start Date Expiration Date Visits Requ ested Visits Authorized HP - NECK Closed 11/15/2009 06/10/2010 8 8 Encounter Details Date Type Department Care Team Description 11/24/2009 Therapy Visit [place] for Sukhi Rust P T Cervical Pain Athletic Medicine - [facility] [place] (Primary Dx) [facility] [address] [place] [address] [place] [address] [place] [phone] Social History Tobacco Use Types Packs/Day [...] How often do you attend shinto or yarsani Patient refused 08/08/2019 services? Do you belong to any clubs or organizations such as No 08/08/2019 shinto groups, [employer], [employer] or athletic groups, or school groups? How [...] in 2000. Pain has gotten worse in 2/ for insidious reasons. Patient also states she [...] Sheet for this information) Short term and MCFP goals: (See Goal Flow Sheet for this [...] Cervicalgia documented in this encounter Care Teams Building Maintenance Technician Relationship Specialty Start Date End Date Danilo-Selma Mccoy APRN PATIENT SERVICE COORDINATOR PCP - General 04/09/08 04/07/15 [address] [facility] [place] [address] documented as of this encounter
--- OUTSIDE RECORDS SUMMARY | 2022-05-09 13:36 | XMS_ITS | Encounter Summary ---
:1965 Author Organization [facility] Address [address] [place] [address]. [place] [address] Care Team Providers Name Role Phone Selma Good APRN DUPLICATION SPECIALIST Primary Care Provider Reason for Visit [facility] Physical Therapy (Routine) - Closed Specialty Diagnoses / Procedures Referred By Contact Refer red To Contact Rayo Rouse PA-C [facility] [place] [address] [address] [place] [address] Referral ID Status Reason Start Date Expiration Date Visits Requ ested Visits Authorized HP - ELBOW Closed 03/22/2009 06/10/2009 17 15 Encounter Details Date Type Department Care Team Description 04/23/2009 Therapy Visit [place] for Graciela Dupree PT Lateral Epicondylitis Athletic Medicine - [address] of [place] (Primary Dx) [facility] [place] [address] Therapy [phone] (Work) [place] [address] Social History Tobacco Use Types Packs/Day Years [...] often do you attend latter day or denominational Patient refused 08/08/2019 services? Do [...] Medicaid as primary or secondary insurance? NO FORM MATERIAL HANDLING SUPERVISOR documented in this encounter Plan of Treatment Not on filedocumented as of this encounter Procedures Procedure Name Priority Date/Time Associated Diagnosis Comme nts Z MANUAL THER Routine 04/23/2009 4:27 PM Lateral Epicondylit is of TECH,1+REGIONS,EA 15 PLATFORM MATERIAL HANDLING SUPERVISOR Elbow MIN ZZ THERAPEUTIC Routine 04/23/2009 4:27 PM Lateral Epicondylit is of EXERCISES PLATFORM MATERIAL HANDLING SUPERVISOR Elbow documented in this encounter Visit Diagnoses Diagnosis Lateral epicondylitis of elbow - Primary Lateral epicondylitis of elbow documented in this encounter Care Teams Station Supervisor Relationship Specialty Start Date End Date Danilo-Selma Mccoy, SVP DUPLICATION SPECIALIST PCP - General 04/09/08 04/07/[address] [facility] [address] [place], [place] [address] documented as of this encounter
--- OUTSIDE RECORDS SUMMARY | 2022-05-09 13:36 | XMS_ITS | Encounter Summary ---
:1965 Author Organization [facility] Address [address] [place] [address]. [place] [address] Care Team Providers Name Role Phone Selma Good APRN HOOP PUNCHER Primary Care Provider [phone] Reason for Visit [facility] Physical Therapy (Routine) - Closed Specialty Diagnoses / Procedures Referred By Contact Refer red To Contact Rayo Rouse PA-C [facility] ATHLETIC [place] [address] [address] [place] [address] Referral ID Status Reason Start Date Expiration Date Visits Requ ested Visits Authorized HP - ELBOW Closed 03/22/2009 06/10/2009 17 15 Encounter Details Date Type Department Care Team Description 04/12/2009 Therapy Visit [place] for Graciela Dupree PT Lateral Epicondylitis Athletic Medicine - [address] of [place] (Primary Dx) [facility] [place] [address] Therapy [phone] (Work) [place] [address] Social History Tobacco Use Types Packs/Day Years [...] organizations such as No 08/08/2019 mormonism groups, [employer], fraternal or athletic groups, or school [...] Medicaid as primary or secondary insurance? NO RING MACHINE TENDER documented in this encounter Plan of Treatment Not on filedocumented as of this encounter Procedures Procedure Name Priority Date/Time Associated Diagnosis Comme nts ZZC MANUAL THER Routine 04/12/2009 5:23 PM Lateral Epicondylit is of TECH,1+REGIONS,EA 15 SCOURING MACHINE TENDER Elbow MIN ZZC THERAPEUTIC Routine 04/12/2009 5:23 PM Lateral Epicondylit is of EXERCISES SCOURING MACHINE TENDER Elbow ZZC ULTRASOUND THERAPY Routine 04/12/2009 5:23 PM Lateral Epic ondylitis of SCOURING MACHINE TENDER Elbow ZZC HOT OR COLD PACKS Routine 04/12/2009 5:23 PM Lateral Epico ndylitis of THERAPY SCOURING MACHINE TENDER Elbow documented in this encounter Visit Diagnoses Diagnosis Lateral epicondylitis of elbow - Primary Lateral epicondylitis of elbow documented in this encounter Care Teams Lead Section Supervisor Relationship Specialty Start Date End Date Danilo-Selma Mccoy, ARTS AND CRAFTS INSTRUCTOR HOOP PUNCHER PCP - General 04/09/08 04/07/[address] [facility] [address] [place], [place] [address] documented as of this encounter
--- OUTSIDE RECORDS SUMMARY | 2022-05-09 13:36 | XMS_ITS | Encounter Summary ---
:1965 Author Organization [facility] Address [address] [place] [address]. [place] [address] Care Team Providers Name Role Phone Selma Good APRN TELEPHONE CLAIMS REPRESENTATIVE Primary Care Provider [phone] Reason for Visit [facility] Physical Therapy (Routine) - Closed Specialty Diagnoses / Procedures Referred By Contact Refer red To Contact Rayo Rouse PA-C [facility] A[facility]LETIC [place] [address] [address] [place] [address] Referral ID Status Reason Start Date Expiration Date Visits Requ ested Visits Authorized HP - ELBOW Closed 03/22/2009 06/10/2009 17 15 Encounter Details Date Type Department Care Team Description 04/16/2009 Therapy Visit [place] for Graciela Dupree PT Lateral Epicondylitis Athletic Medicine - [address] of [place] (Primary Dx) [facility] [place] [address] Therapy [phone] (Work) [place] [address] Social History Tobacco Use Types Packs/Day Years [...] Medicaid as primary or secondary insurance? NO NTIFIC EDITOR documented in this encounter Plan of Treatment Not on filedocumented as of this encounter Procedures Procedure Name Priority Date/Time Associated Diagnosis Comme nts ZZC MANUAL THER Routine 04/16/2009 4:31 PM Lateral Epicondylit is of TECH,1+REGIONS,EA 15 SCIENTIFIC EDITOR Elbow MIN ZZC THERAPEUTIC Routine 04/16/2009 4:31 PM Lateral Epicondylit is of EXERCISES SCIENTIFIC EDITOR Elbow Z ULTRASOUND THERAPY Routine 04/16/2009 4:31 PM Lateral Epic ondylitis of SCIENTIFIC EDITOR Elbow documented in this encounter Visit Diagnoses Diagnosis Lateral epicondylitis of elbow - Primary Lateral epicondylitis of elbow documented in this encounter Care Teams Lumber Cutter Relationship Specialty Start Date End Date Danilo-Selma Mccoy, BROWNELL OPERATOR TELEPHONE CLAIMS REPRESENTATIVE PCP - General 04/09/08 04/07/15 [address] [facility] [place] [address] documented as of this encounter
--- OUTSIDE RECORDS SUMMARY | 2022-05-09 13:36 | XMS_ITS | Encounter Summary ---
:1965 Author Organization [facility] Address [address] [place] [address] Care Team Providers Name Role Phone Selma Good APRN MIXING PLANT OPERATOR Primary Care Provider [phone] Reason for Visit Reason Comments Cough cough, st x 4 days Encounter Details Date Type Department Care Team Description 11/17/2009 Office Visit [facility] Ashli Montoya C ough (Primary Dx); Care ACUTE PHARYNGITIS [address] [facility] [place] [phone] [place] [address] (Wo rk) Social History [...] How often do you attend taoism or jewish Patient refused 08/08/2019 services? Do [...] cough and pharyngitis PLAN: See orders in Epic for prednisone burst, albuterol MDI, and Tessalon. [...] completed using cuff size: large Blank Ull[place] BOX BENDER documented in this encounter Plan of Treatment [...] Component Value Ref Test Analysis Performed At [facility] gist Range Method Time Signature Specimen Throat [place] Description [facility] Culture Micro No Beta [place] Streptococcus [facility] isolated LAB Micro Report FINAL 11/19/2009 [place] Status [facility] Specimen Anatomical Collection Method Collection Time Receive d Time (Source) Location / / Volume Laterality 11/17/2009 7:28 PM 0 7:33 CDT PM CDT Ashli Tamez MD LABORATORY Performing Organization Address City/[facility]/ZIP Code Phon e Number [facility] [address] [place], [place] [address] [address] [phone] [facility] STREP GROUP A ANTIGEN (RAPID) (11/17/2009 7:28 PM CDT) Component Value Ref Test Analysis Performed At [facility] [employer] Range Method Time Signature Specimen Throat [place] Description [facility] Rapid Strep A NEGATIVE: No Group A strepto coccal antigen detected by immunoassay, await [place] Screen culture report. [facility] Micro Report FINAL 11/17/2009 [place] Status [facility] Specimen Anatomical Collection Method Collection Time Receive d Time (Source) Location / / Volume Laterality 11/17/2009 7:28 PM 0 7:33 CDT PM CDT Ashli Tamez MD LABORATORY Performing Organization Address City/[facility]/ZIP Code Phon e Number [facility] [address] [place], [place] [address] [address] [phone] [facility] documented in this encounter Visit Diagnoses Diagnosis Cough - Primary Acute pharyngitis documented in this encounter Care Teams Insole Rounder Relationship Specialty Start Date End Date Danilo-Selma Mccoy APRN MIXING PLANT OPERATOR PCP - General 04/09/08 04/07/15 [address] [facility] [place] [address] documented as of this encounter
--- OUTSIDE RECORDS SUMMARY | 2022-05-09 13:36 | XMS_ITS | Encounter Summary ---
:1965 Author Organization [place] Address [address] [place] [address]. [place] [address] Care Team Providers Name Role Phone Selma Good APRN HIGHWAY MAINTENANCE TECHNICIAN Primary Care Provider [phone] Encounter Details Date Type Department Care Team Description 11/22/2009 Historic Results [facility] Kylah Howard, [address] [place] [address] [address] [place], [place] [address] NEUROLOGY [phone] [address] [facility] [address] [place], [place] [address] (Wo rk) Social History [...] How often do you attend cheondoism or evangelical Patient refused 08/08/2019 services? Do [...] Biologist Relationship Specialty Start Date End Date Selma Good APRN HIGHWAY MAINTENANCE TECHNICIAN PCP - General 04/09/08 04/07/15 [address] [facility] [place] [address] documented as of this encounter
--- OUTSIDE RECORDS SUMMARY | 2022-05-09 13:36 | XMS_ITS | Encounter Summary ---
:1965 Author Organization [facility] Address [address] [place] [address] Care Team Providers Name Role Phone Selma Good APRN FOOD EDITOR Primary Care Provider [phone] Reason for Visit [facility] Physical Therapy (Routine) - Closed Specialty Diagnoses / Procedures Referred By Contact Refer red To Contact Rayo Rouse PA-C [facility] [place] [address], [place] [address] Referral ID Status Reason Start Date Expiration Date Visits Requ ested Visits Authorized HP - ELBOW Closed 03/22/2009 06/10/2009 17 15 Encounter Details Date Type Department Care Team Description 04/01/2009 Therapy Visit [place] for Vadim Banda P T Lateral Epicondylitis Athletic Medicine - [facility]et [facility] (Primary Dx) [facility]. Therapy [address] [place] [address] [place] [address] [place] [id number] Social History Tobacco Use Types Packs/Day Years [...] How often do you attend sikh or christianity Patient refused 08/08/2019 services? Do [...] EXERCISES CDT Elbow ZZC ULTRASOUND THERAPY Routine 04/01/2009 4:56 PM Lateral Epic ondylitis of CDT Elbow documented in this encounter Visit Diagnoses Diagnosis Lateral epicondylitis of elbow - Primary Lateral epicondylitis of elbow documented in this encounter Care Teams Photogeologist Relationship Specialty Start Date End Date Danilo-Selma Mccoy, UROLOGY PHYSICIAN FOOD EDITOR PCP - General 04/09/08 04/07/[address] [facility] [address] [place], [place] [address] documented as of this encounter
--- OUTSIDE RECORDS SUMMARY | 2022-05-09 13:36 | XMS_ITS | Encounter Summary ---
:1965 Author Organization [place] Address [address] [place] [place] [address] Care Team Providers Name Role Phone Selma Good APRN PROCESS TECHNICIAN Primary Care Provider [phone] Reason for Referral - Closed Specialty Diagnoses / Procedures Referred By Contact Refer red To Contact Diagnoses Right elbow pain Raoy Rouse PA-C [facility] [address] [place] [address] Referral ID Status Reason Start Date Expiration Date Visits Requ ested Visits Authorized [id number] Closed 03/12/2009 06/10/2011 1 1 Reason for Visit Reason Comments Musculoskeletal Problem right arm injury on 6 days a go after hanging up clothes, she felt a large pop near forear m Urgent Care Encounter Details Date Type Department Care Team Description 03/12/2009 Office Visit [place]gent Rayo Rouse Righ t Elbow Pain Care MIKAY[place] (Primary Dx) [address] [facility] [place] [phone] [phone] [place] [id number] Social History Tobacco Use Types Packs/Day Years [...] How often do you attend mandaen or taoism Patient refused 08/08/2019 services? Do you belong to any clubs or organizations such as No 08/08/2019 mandaen groups, [employer], [employer] or athletic groups, or school groups? [...] the distal circulation. Pulses are +2 and COLLABORATING SUPERVISING PHYSICIAN is brisk GENERAL APPEARANCE: healthy, alert and [...] Procedure Name Priority Date/Time Associated Diagnosis Comme [facility] RT X-RAY ELBOW Routine 03/12/2009 6:28 PM [...] arm documented in this encounter Care Teams Rocket Engine Mechanic Relationship Specialty Start Date End Date Danilo-Selma Mccoy, HAND PRINTED CIRCUIT BOARD ASSEMBLER PROCESS TECHNICIAN PCP - General 04/09/08 04/07/[address] [facility] [address] [place], [place] [address] documented as of this encounter
--- OUTSIDE RECORDS SUMMARY | 2022-05-09 13:36 | XMS_ITS | Encounter Summary ---
:1965 Author Organization [facility] Address [address] [place] [address] Care Team Providers Name Role Phone Selma Good APRN KELP OR SEAGRASS GATHERER Primary Care Provider Reason for Visit Reason Comments UTI Encounter Details Date Type Department Care Team Description 07/12/2009 Office Visit [facility] Kleber Lima MD UTI (Urinary Tract Infection) (Primary D x); [place] [address] [facility] Positional Vertigo [address] [facility] [place] [phone] [place] [address] Social History Tobacco Use [...] How often do you attend confucianism or taoism Patient refused 08/08/2019 services? Do [...] Comments Blood Pressure 128/72 07/12/2009 4:06 PM HEADSTART TEACHER Pulse 68 07/12/2009 4:06 PM HEADSTART TEACHER Temperature 36.8 ??C (98.2 ??F) 07/12/2009 4:06 PM HEADSTART TEACHER Respiratory Rate - - Oxygen Saturation 100% 07/12/2009 4:06 PM HEADSTART TEACHER Inhaled Oxygen Concentration - - Weight 95.7 kg (210 lb 14.4 oz) 07/12/2009 4:06 PM HEADSTART TEACHER Height 157.5 cm (5' 2) 07/12/2009 4:06 PM HEADSTART TEACHER Body Mass Index 38.57 07/12/2009 4:06 PM HEADSTART TEACHER documented in this encounter Progress Notes Kleber [...] ??? Obesity 278.00J ??? Family History of TN (Myocardial Infarction) V17.3Y Past Medical History Diagnosis [...] Kleber Lima MD Internal Medicine and Pediatrics START TEACHER Anh Winn - 07/12/2009 4:12 PM CST [...] ??? Control/ Protection: Surgical Tubal WYATT Frey START TEACHER documented in this encounter Nursing Notes 07/12/2009 [...] BP completed using cuff size: [email or web address] [email or web address], DESCRIPTIVE CATALOG LIBRARIAN documented in this encounter Plan of Treatment Not on filedocumented as of this encounter Procedures Procedure Name Priority Date/Time Associated Diagnosis Comme nts HCL UA MICRO IF Routine 07/12/2009 4:24 PM UTI (Urinary Tract Results for this POSITIVE HEADSTART TEACHER Infection) procedure are i n the results section. CL AFF MICRO Routine 07/12/2009 4:24 PM Results f or this EXAM-URINE HEADSTART TEACHER procedure are i n the results section. documented in this encounter Results (ABNORMAL) MICRO EXAM-URINE (07/12/2009 4:24 PM HEADSTART TEACHER) athologist Signature WBC Urine 5-10 (A) 0 - 2 /HPF [facility] RBC Urine O - 2 0 - 2 /HPF [facility] Squamous EPI Few FEW /LPF [facility] Bacteria Urine Few (A) NEG /HPF [facility] Specimen Anatomical Collection Method Collection Time Receive d Time (Source) Location / / Volume Laterality 07/12/2009 4:24 PM 0 4:28 HEADSTART TEACHER PM HEADSTART TEACHER Kleber Lima MD LABORATORY Performing Organization Address City/State/ZIP Code Phon e Number [address] [address] [facility] (ABNORMAL) UA MICRO IF POSITIVE (07/12/2009 4:24 PM HEADSTART TEACHER) [facility] gist Method Time Signature Color Urine Yellow [facility] Appearance Urine Slightly [place] Cloudy [facility] Glucose Urine Negative NEG mg/dL [facility] Bilirubin Urine Negative NEG [facility] Ketones Urine Negative NEG mg/dL [facility] Specific [place] 1.015 1.003 - [place] Urine 1.035 [facility] Blood Urine Negative NEG [facility] pH Urine 5.5 5.0 - 7.0 [place] pH [facility] Protein Albumin Negative NEG mg/dL [place] Urine [facility] Urobilinogen 0.2 0.2 - 1.0 [place] Urine EU/dL [facility] Nitrite Urine Negative NEG [facility] Leukocyte Small (A) NEG [place] Esterase Urine [facility] Source Midstream [place] Urine [facility] Specimen Anatomical Collection Method Collection Time Receive d Time (Source) Location / / Volume Laterality 07/12/2009 4:24 PM 0 4:28 HEADSTART TEACHER PM HEADSTART TEACHER Kleber Lima MD LABORATORY Performing Organization Address City/State/ZIP Code Phon e Number [facility] [address] [facility] [place] [address] [facility] documented in this encounter Visit Diagnoses Diagnosis UTI (urinary tract infection) - Primary Urinary tract infection, site not specif ied Positional vertigo Benign paroxysmal positional vertigo documented in this encounter Care Teams Collector Relationship Specialty Start Date End Date Danilo-Selma Mccoy, SAND MIXER MACHINE KELP OR SEAGRASS GATHERER PCP - General 04/09/08 04/07/15 [address] [facility] [place] [address] documented as of this encounter
--- OUTSIDE RECORDS SUMMARY | 2022-05-09 13:36 | XMS_ITS | Encounter Summary ---
:1965 Author Organization [place] Address [address] [place] [address] Care Team Providers Name Role Phone Selma Good APRN TAPE SEWING MACHINE OPERATOR Primary Care Provider [phone] Reason for Visit [facility] Physical Therapy (Routine) - Closed Specialty Diagnoses / Procedures Referred By Contact Refer red To Contact Kylah Howard MD [facility] OF NE[facility]O [facility] [address] [facility] [address] [place] [address] Referral ID Status Reason Start Date Expiration Date Visits Requ ested Visits Authorized HP - NECK Closed 11/15/2009 06/10/2010 8 8 Encounter Details Date Type Department Care Team Description 12/17/2009 Therapy Visit [place] for Vadim Banda P T Cervical Pain Athletic Medicine - Rehab Services (Prima ry Dx) [facility] Therapy [address] [place] [address] Malikseadrift [place] [address] [place] [id number] Social History Tobacco Use Types Packs/Day Years [...] organizations such as No 08/08/2019 caodaism groups, [employer]s, fraternal or athletic groups, or school [...] is being advanced to more complex exercises. TELETYPE OR VARITYPE KEYBOARD OPERATOR/ATC plan: N/A Please refer to the [...] Cervicalgia documented in this encounter Care Teams Meals On Wheels Driver Relationship Specialty Start Date End Date Selma Good APRN TAPE SEWING MACHINE OPERATOR PCP - General 04/09/08 04/07/[address] [facility] [facility] [address] [place], [place] [address] documented as of this encounter
--- OUTSIDE RECORDS SUMMARY | 2022-05-09 13:36 | XMS_ITS | Encounter Summary ---
:1965 Author Organization [place] Address [address] [place] [address] Care Team Providers Name Role Phone Selma Good APRN LATIN TEACHER Primary Care Provider [phone] Reason for Visit [facility] Physical Therapy (Routine) - Closed Specialty Diagnoses / Procedures Referred By Contact Refer red To Contact Kylah Howard MD [facility] ATHLETIC [facility] CLINIC OF NE[facility] [address] [facility] 100 [place] [address] Referral ID Status Reason Start Date Expiration Date Visits Requ ested Visits Authorized HP - NECK Closed 11/15/2009 06/10/2010 8 8 Encounter Details Date Type Department Care Team Description 12/20/2009 Therapy Visit [place] for Sukhi Rust P T Cervical Pain Athletic Medicine - LIN[facility] (Primary Dx) [facility] [address] [place] [address] [place] [address] [place] [phone] Social History Tobacco Use Types Packs/Day [...] How often do you attend druze or faith Patient refused 08/08/2019 services? Do you belong to any clubs or organizations such as No 08/08/2019 druze groups, [employer], [employer] or athletic groups, or school groups? [...] Procedure Name Priority Date/Time Associated Diagnosis Comme [facility] ZC MANUAL THER Routine 12/20/2009 4:39 PM CDT Cervical Pain TECH,1+REGIONS,EA 15 MIN ZZC THERAPEUTIC Routine 12/20/2009 4:39 PM CDT Cervical Pain EXERCISES documented in this encounter Visit Diagnoses Diagnosis Cervical pain - Primary Cervicalgia documented in this encounter Care Teams Chief Internal Auditor Relationship Specialty Start Date End Date Danilo-Selma Mccoy, HISTORIC CLOTHING AND COSTUME MAKER LATIN TEACHER PCP - General 04/09/08 04/07/15 [address] [facility] [address] [place], [place] [address] documented as of this encounter
--- OUTSIDE RECORDS SUMMARY | 2022-05-09 13:36 | XMS_ITS | Encounter Summary ---
:1965 Author Organization [place] Address [address] [place] [address] Care Team Providers Name Role Phone Selma Good APRN ONION FARMER Primary Care Provider [phone] Reason for Visit [facility] Physical Therapy (Routine) - Closed Specialty Diagnoses / Procedures Referred By Contact Refer red To Contact Rayo Rouse PA-C [facility] [place] [address] [address] Referral ID Status Reason Start Date Expiration Date Visits Requ ested Visits Authorized HP - ELBOW Closed 03/22/2009 06/10/2009 17 15 Encounter Details Date Type Department Care Team Description 04/08/2009 Therapy Visit [place] for Vadim Banda P T Lateral Epicondylitis Athletic Medicine - Rehab Services of Elisabet govea (Primary Dx) [facility] Therapy [address] [place] [address] Malikthrall [place] [address] [place] [id number] Social History Tobacco Use Types Packs/Day Years [...] How often do you attend mormon or uatsdin Patient refused 08/08/2019 services? Do [...] documented in this encounter Care Teams Public Policy Manager Relationship Specialty Start Date End Date Danilo-Selma Mccoy, PRIVACY OFFICER ONION FARMER PCP - General 04/09/08 04/07/15 [address] [facility] [address] [place], [place] [address] documented as of this encounter
--- OUTSIDE RECORDS SUMMARY | 2022-05-09 13:36 | XMS_ITS | Encounter Summary ---
:1965 Author Organization [place] Address [address] [place] [address]. [place] [address] Care Team Providers Name Role Phone Selma Good APRN FILTER PRESS OPERATOR Primary Care Provider [phone] Reason for Visit Reason Comments Foot Problems [...] Department Care Team Description 12/15/2009 Office Visit [facility] Florent[place], Foot Pain ( Primary Dx); [place] APRN Migraine Headaches [address] [place] [address] [address] [facility] [phone] [facility] [place] [address] Social History [...] How often do you attend mandaen or restorationism Patient refused 08/08/2019 services? Do [...] Body Mass Index 37.93 07/12/2009 4:06 PM CLINICAL LAB SCIENTIST documented in this encounter Progress Notes Selma [...] migrainosus documented in this encounter Care Teams Consumer Banker Relationship Specialty Start Date End Date Danilo-Selma Mccoy, SWITCH TECHNICIAN FILTER PRESS OPERATOR PCP - General 04/09/08 04/07/15 [address] [facility] [place] [address] documented as of this encounter
--- OUTSIDE RECORDS SUMMARY | 2022-05-09 13:36 | XMS_ITS | Encounter Summary ---
:1965 Author Organization [place] Address [address] [place] [address]. [place] [address] Care Team Providers Name Role Phone Selma Good APRN GLASS BLOCK BENDER Primary Care Provider [phone] Reason for Visit [facility] Physical Therapy (Routine) - Closed Specialty Diagnoses / Procedures Referred By Contact Refer red To Contact Rayo Rouse PA-C [facility] A[facility]IC [place] [address] [address] [place] [address] Referral ID Status Reason Start Date Expiration Date Visits Requ ested Visits Authorized HP - ELBOW Closed 03/22/2009 06/10/2009 17 15 Encounter Details Date Type Department Care Team Description 03/29/2009 Therapy Visit [place] for Graciela Dupree PT Lateral Epicondylitis Athletic Medicine - [address] of [place] (Primary Dx) [facility] [place] [address] Therapy [phone] (Work) [place] [address] Social History Tobacco Use Types Packs/Day Years [...] elbow documented in this encounter Care Teams Hearing Aid Assembly Supervisor Relationship Specialty Start Date End Date Danilo-Selma Mccoy, HONEY EXTRACTOR GLASS BLOCK BENDER PCP - General 04/09/08 04/07/15 [address] [facility] [place] [address] documented as of this encounter
--- OUTSIDE RECORDS SUMMARY | 2022-05-09 13:36 | XMS_ITS | Encounter Summary ---
:1965 Author Organization [place] Address [address] [place] [address]. [place] [address] Care Team Providers Name Role Phone Selma Good APRN ELECTRO OPTICS ENGINEER Primary Care Provider [phone] Reason for Visit [facility] Physical Therapy (Routine) - Closed Specialty Diagnoses / Procedures Referred By Contact Refer red To Contact Rayo Rouse PA-C [facility] [place] [address] [address] [place] [address] Referral ID Status Reason Start Date Expiration Date Visits Requ ested Visits Authorized HP - ELBOW Closed 03/22/2009 06/10/2009 17 15 Encounter Details Date Type Department Care Team Description 05/17/2009 Therapy Visit [place] for Graciela Dupree PT Lateral Epicondylitis Athletic Medicine - [address] of [place] (Primary Dx) [facility] [place] [address] Therapy [phone] (Work) [place] [address] Social History Tobacco Use Types Packs/Day Years [...] How often do you attend yazidism or orthodoxy Patient refused 08/08/2019 services? Do [...] Medicaid as primary or secondary insurance? NO ESSOR OF SOCIAL WORK documented in this encounter Plan of Treatment Not on filedocumented as of this encounter Procedures Procedure Name Priority Date/Time Associated Diagnosis Comme nts Z MANUAL THER Routine 05/17/2009 5:01 PM Lateral Epicondylit is of TECH,1+REGIONS,EA 15 PROFESSOR OF SOCIAL WORK Elbow MIN ZZC THERAPEUTIC Routine 05/17/2009 5:01 PM Lateral Epicondylit is of EXERCISES PROFESSOR OF SOCIAL WORK Elbow documented in this encounter Visit Diagnoses Diagnosis Lateral epicondylitis of elbow - Primary Lateral epicondylitis of elbow documented in this encounter Care Teams Geographic Information Scientist Relationship Specialty Start Date End Date Danilo-Selma Mccoy, PIPE AND TEST SUPERVISOR ELECTRO OPTICS ENGINEER PCP - General 04/09/08 04/07/15 [address] [facility] [address] [place], DAV[place] [address] documented as of this encounter
--- OUTSIDE RECORDS SUMMARY | 2022-05-09 13:36 | XMS_ITS | Encounter Summary ---
:1965 Author Organization [place] Address [address] [place] [address]. [place] [address] Care Team Providers Name Role Phone Selma Good APRN BRAKE ENGINEER Primary Care Provider [phone] Encounter Details Date Type Department Care Team Description 06/28/2009 Historic Results [facility] Kylah Howard, [address] [place] [address] [address] [place], [place] [address] NEUROLOGY [phone] [address] [facility] [address] [place], [place] [address] (Wo rk) Social History [...] How often do you attend buddhist or islam Patient refused 08/08/2019 services? Do [...] 06/28/2009 10:45 AM Results for this SCREENING BARREL CLEANER procedure are i n the results section. documented in this encounter Results (ABNORMAL) Vitamin D deficiency screening (06/28/2009 10:45 AM BARREL CLEANER) P athologist Signature 25 [place] Vit D2 <5 ug/L MISYS 25 [place] Vit D3 21 ug/L MISYS 25 [place] Vit D <26 (L) 30 - 75 MISYS total ug/L Comment: Season, race, dietary intake, and treatm ent affect the concentration of 74-cijpwvt-Rmumcgn D. Values may decrea se during winter months and increase during summer months. Values less than 30 ug/L may indicate Vitamin D deficiency. Specimen Anatomical Collection Method Collection Time Receive d Time (Source) Location / / Volume Laterality 06/28/2009 10:45 06/28/2009 AM BARREL CLEANER 10:42 AM BARREL CLEANER Kylah Howard MD LAB - BLOOD ORDERABLES Performing Organization Address City/State/ZIP Code Phon e Number MISYS documented in this encounter Visit Diagnoses Not on filedocumented in this encounter Care Teams Race And Sports Book Writer Relationship Specialty Start Date End Date Danilo-Selma Mccoy, HEAD WAITER BRAKE ENGINEER PCP - General 04/09/08 04/07/15 [address] [facility] [place] [address] documented as of this encounter
--- OUTSIDE RECORDS SUMMARY | 2022-05-09 13:37 | XMS_ITS | Encounter Summary ---
:1965 Author Organization [place] Address [address] [place] [address] Care Team Providers Name Role Phone Selma Good APRN WOODWORKING MACHINE OPERATOR Primary Care Provider [phone] Encounter Details Date Type Department Care Team Description 02/19/2006 Historic Results INTERFACED REPORT Zachary Kirkland MD JOHN STARK MD PA [address] [facility] [address] [place] [address] (Wo rk) Social History Tobacco Use Types Packs/Day Years Used Date Smoking Tobacco: Never Assessed Alcohol Habits Answer Date Recorded [...] How often do you attend synagogue or sikh Patient refused 08/08/2019 services? Do [...] Crossmatch red cells (02/19/2006 12:10 PM CDT) [facility] Method Time Signature ABO O MISYS RH(D) Pos MISYS Antibody Neg MISYS Screen Blood Red Cells MISYS Component Type Units Ordered 2 MISYS Specimen 02/22/2006 MISYS Expires Unit Number [id number] MISYS Blood Red Blood MISYS Component Cells Type Leukocyte Reduced Status of REL FROM MISYS Unit ALLOC Unit Number [id number] MISYS Blood Red Blood MISYS Component Cells [...] on filedocumented in this encounter Care Teams Apple Press Operator Relationship Specialty Start Date End Date Danilo-Selma Mccoy, PIN MAKER WOODWORKING MACHINE OPERATOR PCP - General 04/09/08 04/07/[address] [place] [address] documented as of this encounter
--- OUTSIDE RECORDS SUMMARY | 2022-05-09 13:37 | XMS_ITS | Encounter Summary ---
:1965 Author Organization [place] Address [address] [place] [address] Care Team Providers Name Role Phone Selma Good APRN LEAD JANITOR Primary Care Provider [phone] Encounter Details Date Type Department Care Team Description 02/24/2006 Historic Costing Manager INTERFACED REPORT Interface, MD Brannon Social [...] How often do you attend sabianist or muslim Patient refused 08/08/2019 services? Do [...] filedocumented in this encounter Care Teams Metal Inspector Relationship Specialty Start Date End Date Danilo-Selma Mccoy APRN LEAD JANITOR PCP - General 04/09/08 04/07/15 [address] [facility] [place] [address] documented as of this encounter
--- OUTSIDE RECORDS SUMMARY | 2022-05-09 13:37 | XMS_ITS | Encounter Summary ---
:1965 Author Organization [place] Address [address] [place] [address] Care Team Providers Name Role Phone Unavailable Primary Care Provider Unavailable Encounter Details Date Type Department Care Team Description 02/19/2006 Operative Report Hamzah Ramos MD (Hog Scalder) HAMZAH RAMOS MD PA [address] [facility] [address] [place] [address] (Wo rk) Social History Tobacco [...] How often do you attend anabaptism or sikhism Patient refused 08/08/2019 services? Do [...] HAMZAH RAMOS MD 151:1 MT: armin Document: [id number] LCN: [id number] DSC: Name: MR#: : Procedure Date: PADMINI CHOI -80 1965 02/19/2006 OPERATIVE REPORT Page 2 of [...] was prepped and draped prone on the four-immigration coordinator. A longitudinal incision was made under direct [...] Midas Chilango was used to create a transport pilot hole and then using the C-arm [...] distally and mediolaterally within a pedicle. A transport pilot hole was made with the Midas [...] in 2 to 4 days. Lovenox and HVAC FIELD SERVICE TECHNICIAN Dilaudid while in the hospital. HAMZAH RAMOS MD Dictated by: HAMZAH RAMOS MD 181:0 MT: armin Document: [id number] LCN: [id number] DSC: Name: MR#: : Procedure Date: PADMINI CHOI [id number] 1965 02/19/2006 OPERATIVE REPORT Page 3 of 3 documented in this encounter Plan of Treatment Not on filedocumented as of this encounter Visit Diagnoses Not on filedocumented in this encounter
--- OUTSIDE RECORDS SUMMARY | 2022-05-09 13:37 | XMS_ITS | Encounter Summary ---
:1965 Author Organization [place] Address [address] [place] [address] Care Team Providers Name Role Phone Selma Good APRN GROUNDSKEEPER Primary Care Provider [phone] Encounter Details Date Type Department Care Team Description 04/21/2008 Orders Only [facility] Eag an Routine General Medical [address] [facility] [place] [address] Care Facility [phone] Social History Tobacco Use Types Packs/Day Years [...] How often do you attend episcopal or christianity Patient refused 08/08/2019 services? Do [...] General R esults for this METABOLIC PANEL CLAY GRINDER Medical Examination proce dure are in at a Health Care the results Facility section. CL AFF A.M.A. LIPID Routine 04/21/2008 8:01 AM Routine General Results for this PANEL CLAY GRINDER Medical Examination procedur e are in at a [facility] the results Facility section. documented in this encounter Results (ABNORMAL) A.M.A. COMPREHENSIVE MET.PANEL (04/21/2008 8:01 AM CLAY GRINDER) athologist Signature Sodium 142 133 - 144 [facility] mmol/L [facility] Potassium 3.8 3.4 - 5.3 [facility] mmol/L [facility] Chloride 102 94 - 109 [facility] mmol/L [facility] Carbon Dioxide 27 20 - 32 [facility] mmol/L [facility] Anion Gap 12 6 - 17 [facility] mmol/L [facility] Glucose 126 (H) 60 - 99 [place] mg/dL [facility] Urea Nitrogen 9 5 - 24 [place] mg/dL [facility] Creatinine 0.66 0.52 - [place] 1.04 mg/dL [facility] Comment: New IDMS-traceable calibration beginning 10/10/07 GFR Estimate >90 >60 mL/min/1.7m2 [place] E [facility] GFR Estimate If Black >90 >60 mL/min/1.7m2 [facility] Calcium 9.0 8.5 - 10.4 mg/dL [facility] Bilirubin Total 0.5 0.2 - 1.3 mg/dL [facility] Albumin 3.6 (L) 3.9 - 5.1 g/dL [facility] Comment: Reference range changed on 02/10. Protein Total 7.2 6.8 - 8.8 g/dL [place] EA [facility] Comment: As of 07, reference range reflects plasma specimen type. Alkaline Phosphatase 129 40 - 150 U/L [facility] ALT 24 0 - 50 U/L [facility] CLIN IC LAB AST 21 0 - 45 U/L [facility] CLIN IC LAB Specimen Anatomical Collection Method Collection Time Receive d Time (Source) Location / / Volume Laterality 04/21/2008 8:01 AM 8 8:03 CLAY GRINDER AM CLAY GRINDER Selma Good APRN GROUNDSKEEPER LABORATORY Performing Organization Address City/State/ZIP Code Phon e Number [facility] [address] [place] [address] [facility] (ABNORMAL) A.M.A. LIPID PANEL (04/21/2008 8:01 AM CLAY GRINDER) P athologist Signature Cholesterol 190 0 - 200 [facility] mg/dL CLINIC LAB Comment: LDL Cholesterol [...] Triglycerides 155 (H) 0 - 150 mg/dL [facility] HDL Cholesterol 34 (L) 50 - 110 mg/dL [facility] LDL Cholesterol Calculated 125 0 - 129 mg/dL [facility] Comment: LDL Cholesterol is the primary guide to therapy: LDL-cholesterol goal in high risk patients is <100 mg/dL and in very high risk patients is <70 mg/dL. VLDL-Cholesterol 31 (H) 0 - 30 mg/dL [facility] Cholesterol/HDL Ratio 5.6 (H) 0.0 - 5.0 [facility] Specimen Anatomical Collection Method Collection Time Receive d Time (Source) Location / / Volume Laterality 04/21/2008 8:01 AM 8 8:03 CLAY GRINDER AM CLAY GRINDER Selma Good APRN, CNP LABORATORY Performing Organization Address City/State/ZIP Code Phon e Number [facility] [address] [facility] [place] [address] [facility] documented in this encounter Visit Diagnoses Diagnosis Routine general medical examination at a health care facility documented in this encounter Care Teams Clinical Assessment Manager Relationship Specialty Start Date End Date Selma Good APRN GROUNDSKEEPER PCP - General 04/09/08 04/07/15 [address] [facility] [place] [address] documented as of this encounter
--- OUTSIDE RECORDS SUMMARY | 2022-05-09 13:37 | XMS_ITS | Encounter Summary ---
:1965 Author Organization [place] Address [address] [place] [address] Care Team Providers Name Role Phone Selma Good APRN RIVETING MACHINE OPERATOR TAPE CONTROL Primary Care Provider [phone] Reason for Visit Reason Comments Sinus Problem Urgent Care Encounter Details Date Type Department Care Team Description 07/28/2008 Office Visit [place] [facility] [employer], Ashli Minor, Shine eckert Otitis Media Care MD (Primary Dx) [address] [place] [address] [place] [phone] [place] [address] (Wo rk) Social History [...] How often do you attend latter-day or pentecostal Patient refused 08/08/2019 services? Do [...] Comments Blood Pressure 122/74 07/28/2008 6:00 PM GEOPHYSICAL LABORATORY SUPERVISOR Pulse - - Temperature 37.1 ??C (98.7 ??F) 07/28/2008 6:00 PM GEOPHYSICAL LABORATORY SUPERVISOR Respiratory Rate 16 07/28/2008 6:00 PM GEOPHYSICAL LABORATORY SUPERVISOR Oxygen Saturation - - Inhaled Oxygen [...] the amount of pus behind the membrane. HYSICAL LABORATORY SUPERVISOR documented in this encounter Nursing Notes 07/28/2008 [...] media documented in this encounter Care Teams Asset Analyst Relationship Specialty Start Date End Date Danilo-Selma Mccoy, SITE INSPECTOR RIVETING MACHINE OPERATOR TAPE CONTROL PCP - General 04/09/08 04/07/[address] [facility] [address] [place], [place] [address] documented as of this encounter
--- OUTSIDE RECORDS SUMMARY | 2022-05-09 13:37 | XMS_ITS | Encounter Summary ---
:1965 Author Organization [place] Address [address] [place] [address]. [place] [address] Care Team Providers Name Role Phone Selma Good APRN DUMP MOTOR OPERATOR Primary Care Provider [phone] Encounter Details Date Type Department Care Team Description 02/20/2006 Historic Results [facility] Adriana Montesinos, Stephanie Azevedo MD [address] [place] [address] [place] [address] (Wo rk) Social History Tobacco [...] How often do you attend alevism or latter day Patient refused 08/08/2019 services? [...] Component Value Ref Test Analysis Performed At [facility] Prizzm Range Method Time Signature Source Unspecified MISYS Urine Color Urine Yellow MISYS Appearance Urine Clear MISYS Glucose Urine 70 (A) NEG MISYS mg/dL Bilirubin Urine Negative NEG MISYS Ketones Urine Negative NEG MISYS mg/dL Specific [place] 1.009 1.003 - MISYS Urine 1.035 Blood [...] LAB - URINE ORDERABLES Performing Organization Address City/[facility]/ZIP Code Phon e Number MISYS Urine culture (02/20/2006 1:30 PM CDT) [facility] Method Time Signature Specimen Unspecified MISYS Description Urine Culture Micro No growth MISYS Micro Report FINAL [id number] MISYS Status Specimen Anatomical Collection Method Collection Time Receive d Time (Source) Location / / Volume Laterality 02/20/2006 1:30 PM [address] CDT 11:[address] Montesinos MD LAB - MICRO GENERAL ORDERABL ES Performing Organization Address City/[facility]/ZIP Code Phon e Number MISYS (ABNORMAL) Hemogram differential and platelet (02/20/2006 12:00 PM CDT) [facility] Method Time Signature MCV 91 78 - [...] LAB - BLOOD ORDERABLES Performing Organization Address City/[facility]/ZIP [facility] Phon e Number MISYS documented in this encounter Visit Diagnoses Not on filedocumented in this encounter Care Teams Radio Technician Relationship Specialty Start Date End Date Selma Good, CLAIMS ADJUDICATOR DUMP MOTOR OPERATOR PCP - General 04/09/08 04/07/[address] [facility] [facility] [address] [place], [place] [address] documented as of this encounter
--- OUTSIDE RECORDS SUMMARY | 2022-05-09 13:37 | XMS_ITS | Encounter Summary ---
:1965 Author Organization [place] Address [address] [place] [address]. [place] [address] Care Team Providers Name Role Phone Selma Good SENIOR OUTSIDE SALES REPRESENTATIVE MANAGER REHAB Primary Care Provider [phone] Encounter Details Date Type Department Care Team Description 04/21/2008 Results Only [facility] Selma Anthony, [address] [facility] SENIOR OUTSIDE SALES REPRESENTATIVE MANAGER REHAB [place] [phone] 5680 [facility] [phone] [facility] [place] [address] (Wo rk) Social [...] How often do you attend latter-day or oriental orthodox Patient refused 08/08/2019 services? [...] Procedure Name Priority Date/Time Associated Diagnosis Comme [facility] MAMMO SCREEN Routine 04/21/2008 10:29 AM Resul ts for this BILATATERAL, INCL SUPERINTENDENT COMMUNICATIONS procedure are in CAD WHEN PERF the results section. documented in this encounter Results SCREENING MAMMOGRAPHY DIGITAL (BILAT) (04/21/2008 10:29 AM SUPERINTENDENT COMMUNICATIONS) Anatomical Region Laterality Modality Other Specimen (Source) Anatomical Collection Method Collection Time Re ceived Time Location / / Volume Laterality 04/21/2008 10:29 AM SUPERINTENDENT COMMUNICATIONS Impressions 04/21/2008 11:04 AM SUPERINTENDENT COMMUNICATIONS SCREENING MAMMOGRAM, BILATERAL, DIGITAL w/ CAD BREAST SYMPTOMS/COMPARISON:Routine. 09-29 BREAST PARENCHYMAL PATTERN: Heterogeneou sly dense. COMMENTS: Negative. IMPRESSION: BI-RADS 1, NEGATIVE. Selma Good APRN, CNP SPECIAL IMAGING STUDIES documented in this encounter Visit Diagnoses Not on filedocumented in this encounter Care Teams Budget And Policy Analyst Relationship Specialty Start Date End Date Selma Good APRN CNP PCP - General 04/09/08 04/07/[address] [facility] [place] [address] documented as of this encounter
--- OUTSIDE RECORDS SUMMARY | 2022-05-09 13:37 | XMS_ITS | Encounter Summary ---
:1965 Author Organization [place] Address [address] [place] [address]. [place] [address] Care Team Providers Name Role Phone Selma Good APRN LEATHER DRESSER Primary Care Provider Encounter Details Date Type Department Care Team Description 02/24/2009 Historic Results [facility] Kylah Howard, [address] [place] [address] [address] [place], [place] [address] NEUROLOGY [phone] [address] [facility] [address] [place], [place] [address] (Wo rk) Social History [...] How often do you attend yarsani or adventism Patient refused 08/08/2019 services? Do you belong to any clubs or organizations such as 08/08/2019 yarsani groups, unions, fraternal or athletic [...] LAB - BLOOD ORDERABLES Performing Organization Address [facility] Code Phon e Number MISYS Rheumatoid factor (02/24/2009 2:38 PM CDT) athologist Signature Rheumatoid <7 0 - 14 MISYS Factor IU/mL Specimen Anatomical Collection Method Collection Time Receive d Time (Source) Location / / Volume Laterality 02/24/2009 2:38 PM 9 2:32 CDT PM CDT Kylah Howard MD LAB - BLOOD ORDERABLES Performing Organization Address [facility] Phon e Number MISYS Erythrocyte sedimentation rate auto (02/24/2009 2:38 PM CDT) athologist Signature Sed Rate 13 0 - 20 mm/h MISYS Specimen Anatomical Collection Method Collection Time Receive d Time (Source) Location / / Volume Laterality 02/24/2009 2:38 PM 9 2:32 CDT PM CDT Kylah Howard MD LAB - BLOOD ORDERABLES Performing Organization Address [facility] Phon e Number MISYS Lyme IgG and IgM screen (02/24/2009 2:38 PM CDT) [facility] Method Time Signature Specimen Serum MISYS Description [...] LAB - BLOOD ORDERABLES Performing Organization Address [facility] Phon e Number MISYS documented in this encounter Visit Diagnoses Not on filedocumented in this encounter Care Teams Product Marketing Specialist Relationship Specialty Start Date End Date Selma Good, EMERGENCY ROOM PHYSICIAN ASSISTANT LEATHER DRESSER PCP - General 04/09/08 04/07/15 [address] [facility] [place] [address] documented as of this encounter
--- OUTSIDE RECORDS SUMMARY | 2022-05-09 13:37 | XMS_ITS | Encounter Summary ---
:1965 Author Organization [facility] Address [address] [place] [address] Care Team Providers Name Role Phone Selma Good APRN CARDIOVASCULAR OR NURSE Primary Care Provider [phone] Reason for Visit Reason Onset Date Comments Refill Request 08/04/2008 amoxicillin Encounter Details Date Type Department Care Team Description 08/04/2008 Refill [facility] [place] Selma Anthony Refill Request [address] [employer] SEAN Angeles CARDIOVASCULAR OR NURSE (amoxicillin) [place] [phone] 7[address] [facility] [phone] [facility] [place] [address] (Wo rk) Social [...] How often do you attend jain or buddhism Patient refused 08/08/2019 services? Do [...] this encounter Miscellaneous Notes Telephone Encounter - Roscoesarai Tash - 08/04/2008 9:38 AM CST This pt [...] for her? Please call her when done. [phone] OK to leave a message. Tash Montez RN ATOR OPERATOR documented in this encounter Plan of Treatment Not on filedocumented as of this encounter Visit Diagnoses Diagnosis Acute otitis media - Primary Unspecified otitis media documented in this encounter Care Teams Health Actuary Relationship Specialty Start Date End Date Danilo-Selma Mccoy, VARNISH THINNER CARDIOVASCULAR OR NURSE PCP - General 04/09/08 04/07/15 [address] [facility] [address] [place], [place] [address] documented as of this encounter
--- OUTSIDE RECORDS SUMMARY | 2022-05-09 13:37 | XMS_ITS | Encounter Summary ---
:1965 Author Organization [facility] Address [address] [place] [address]. [place] [address] Care Team Providers Name Role Phone Selma Good APRN PROP SETTER Primary Care Provider [phone] Reason for Visit Reason Comments Elbow Pain c/o left elbow pain for 3 mo nths. no known injury Encounter Details Date Type Department Care Team Description 02/11/2009 Office Visit [facility] Florentino, Cervical Ra diculopathy Pino Angeles APRN (Primary Dx) [address] [place] [address] [place] [address] [facility] [place] [address] Social History [...] trap muscular tension and tendernes upon palpation. Real Estate Valuer strength +2/+2, sensation to lt touch of fingers intact. Pain described as tingling and numbness. X-RAY was not done. ASSESSMENT/PLAN: 723.4AS Cervical Radiculopathy (primary encounter diagnosis) Comment: Discussed this pain is most likely stemming from her ongoing neck problems. She had an option to see neurology or international specialist. Her old international specialist who did her surgeries in 2000 [...] nos documented in this encounter Care Teams Mounter Saxophones Relationship Specialty Start Date End Date Danilo-Selma Mccoy, MANGLE PRESS CATCHER PROP SETTER PCP - General 04/09/08 04/07/[address] [facility] [place] [address] documented as of this encounter
--- OUTSIDE RECORDS SUMMARY | 2022-05-09 13:37 | XMS_ITS | Encounter Summary ---
:1965 Author Organization [facility] Address [address] [place] [address] Care Team Providers Name Role Phone Selma Angelo APRN LITHOGRAPH OPERATOR Primary Care Provider [phone] Reason for Visit Reason Comments Physical Encounter Details Date Type Department Care Team Description 04/13/2008 Office Visit [facility] Florentino, Routine Gen eral Medical Examination at a Health Care Facility (Primary Dx); Pino Angeles APRN Screening Mammogram; 1440 [facility] Screening for Malignant Neoplasm of the Cervix; [place] [address] [facility] Need for Prophylactic Vaccin ation and Inoculation Against Influenza; [phone] [facility] Migraine Headaches; [place] [address] GERD (Gastroesophageal Reflux Disease); [phone] Obesity (Work) Social History Tobacco Use Types [...] How often do you attend samaritan or druze Patient refused 08/08/2019 services? 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 Tobacco Use: Never ??? Alcohol Use: Yes Rare ??? Drug Use: No ??? Sexually Active: Yes -- Male partner(s) Control/ Protection: Surgical Tubal Other Topics Concern ??? Not on file Social History Narrative ??? No narrative on file Family History Problem Relation ??? Cardiovascular Mother [place] age 72 ??? Cardiovascular Father [place] early 40s, subsequent bipass ??? Diabetes Mother [...] appointment if any problems or failureto improve. CAL CHARGE ENTRY SPECIALIST Dafne Guerrero - 04/13/2008 3:36 PM CST [...] you fasting today? No Ivette Allan M.A. CAL CHARGE ENTRY SPECIALIST documented in this encounter Plan of Treatment Not on filedocumented as of this encounter Procedures Procedure Name Priority Date/Time Associated Diagnosis Comme nts HCL PAP THIN LAYER Routine 04/13/2008 12:00 AM Screening for R esults for this SCREEN MEDICAL CHARGE ENTRY SPECIALIST Malignant Neoplasm procedure are in of the Cervix the results section. documented in this encounter Results A THIN LAYER PAP SCREEN (04/13/2008 12:00 AM MEDICAL CHARGE ENTRY SPECIALIST) Component Value Ref Test Analysis Performed At [facility] Range Method Time Signature PAP OTHER-NIL EM>40 COPATH Copath Report COPATH Patient Name: PADMINI CHOI MR#: [id number] Specimen #: [id number] Collected: 04/13/2008 Received: 04/14/2008 Reported: 04/16/2008 16:11 [...] Todd Mckeon M.D. [facility] CLINICAL HISTORY: LMP: 03/28/08 TESTING LAB LOCATION: [address] ??[address] COLLECTION SITE: Client: ??[facility] Location: EAFP (R) Specimen (Source) Anatomical Collection Method Collection Time Re ceived Time Location / / Volume Laterality 04/13/2008 04/14/2008 4:20 PM MEDICAL CHARGE ENTRY SPECIALIST Selma Angelo APRN, CNP LABORATORY Performing Organization [...] unspecified documented in this encounter Care Teams Obedience Trainer Relationship Specialty Start Date End Date Selma Angelo APRN CNP PCP - General 04/09/08 04/07/15 [address] [facility] [place] [address] documented as of this encounter
--- OUTSIDE RECORDS SUMMARY | 2022-05-09 13:37 | XMS_ITS | Encounter Summary ---
:1965 Author Organization [facility] Address [address] [place] [address] Care Team Providers Name Role Phone Unavailable Primary Care Provider Unavailable Encounter Details Date Type Department Care Team Description 02/19/2006 Operative Report Cora Galvan MD (Ocean Biologist) XXX RETIRED XXX [address] [facility] 8 [place], [place] [address] (Wo rk) Social History Tobacco [...] How often do you attend mandaeism or caodaism Patient refused 08/08/2019 services? Do [...] by: CORA GALVAN MD MT: armin Document: [id number] LCN: [id number] DSC: Name: MR#: : Procedure Date: MEGAN CHOI -78 1965 02/19/2006 OPERATIVE REPORT Page 2 of 1 documented in this encounter Plan of Treatment Not on filedocumented as of this encounter Visit Diagnoses Not on filedocumented in this encounter
--- OUTSIDE RECORDS SUMMARY | 2022-05-09 13:37 | XMS_ITS | Encounter Summary ---
:1965 Author Organization [facility] Address [address] [place] [address]. [place] [address] Care Team Providers Name Role Phone Unavailable Primary Care Provider Unavailable Encounter Details Date Type Department Care Team Description 02/19/2006 Results Only [facility] Hamzah Kirkland MD [facility] Radiology Results HAMZAH KIRKLAND MD PA [address] [facility] 715 [place] [address] (Wo rk) Social History Tobacco [...] How often do you attend yarsani or mosque Patient refused 08/08/2019 services? Do [...] Name Priority Date/Time Associated Diagnosis Comme nts FLUOROSCOPY, UP Routine 02/19/2006 4:35 PM Res ults for this TO 1 HOUR CDT procedure are i n the results section. X-RAY SPINE 1 Routine 02/19/2006 2:39 PM Resul ts for this VIEW CDT procedure are i n the results section. documented in this encounter Results FLUOROSCOPE EXAMINATION (02/19/2006 4:35 PM CDT) Anatomical Region Laterality Modality Other Specimen (Source) Anatomical Collection Method Collection Time Re ceived Time Location / / Volume Laterality 02/19/2006 4:35 PM CDT Impressions 02/26/2006 3:17 PM CDT ?? INTRAOPERATIVE FLUOROSCOPY, 02/19/06 ?? HISTORY: ??Anterior and posterior spinal fusion L3-L5. ? 30 seconds of fluoroscopy time was provi ded. ??Two spot radiographs demonstrate the placement of bilateral L 5 and S1 pedicle screws. ? Dictated: ??02/20/06 Hamzah Kirkland MD SPECIAL IMAGING STUDIES X-RAY SPINE ONE VIEW (02/19/2006 2:39 PM CDT) Anatomical Region Laterality Modality Other Specimen (Source) Anatomical Collection Method Collection Time Re ceived Time Location / / Volume Laterality 02/19/2006 2:39 PM CDT Impressions 02/20/2006 12:43 PM CDT ?? PORTABLE LUMBAR SPINE IN OR, 02/19/06 ?? Portable spine reveals a needle over the L5-S1 disc space. Hamzah Kirkland MD GENERAL IMAGING documented in this encounter Visit Diagnoses Not on filedocumented in this encounter
--- OUTSIDE RECORDS SUMMARY | 2022-05-09 13:37 | XMS_ITS | Encounter Summary ---
:1965 Author Organization [facility] Address [address] [place] [address]. [place] [address] Care Team Providers Name Role Phone Selma Good APRN INTERLOCKING MACHINE OPERATOR Primary Care Provider [phone] Encounter Details Date Type Department Care Team Description 10/24/2008 Orders Only [facility] Eag an Obesity; [address] [employer] Obesity, Unspecified PinoDAVID alt[place] [address] Social History [...] How often do you attend mandaen or zoroastrianism Patient refused 08/08/2019 services? Do [...] A.M.A. LIPID PANEL (10/24/2008 9:56 AM CDT) P athologist Signature Cholesterol 183 0 - 200 [facility] mg/dL CLINIC LAB Comment: [...] mg/dL. Triglycerides 132 0 - 150 mg/dL [facility] HDL Cholesterol 34 (L) 50 - 110 mg/dL [facility] LDL Cholesterol Calculated 123 0 - 129 mg/dL [facility] Comment: LDL Cholesterol is the primary guide to therapy: LDL-cholesterol goal in high risk patients is <100 mg/dL and in very high risk patients is <70 mg/dL. VLDL-Cholesterol 26 0 - 30 mg/dL [facility] Cholesterol/HDL Ratio 5.4 (H) 0.0 - 5.0 [facility] Specimen Anatomical Collection Method Collection Time Receive d Time (Source) Location / / Volume Laterality 10/24/2008 9:56 AM 9 CDT 10:01 AM CDT Selma Good APRN INTERLOCKING MACHINE OPERATOR LABORATORY Performing Organization Address City/[facility]/ZIP Code Phon e Number [facility] [address] [place] [address] [phone] [facility] (ABNORMAL) GLUCOSE (10/24/2008 9:56 AM CDT) athologist Signature Glucose 119 (H) 60 - 99 [facility] Specimen Anatomical Collection Method Collection Time Receive d Time (Source) Location / / Volume Laterality 10/24/2008 9:56 AM 9 CDT 10:01 AM CDT Selma Good APRN [facility] LABORATORY Performing Organization Address City/[facility] Phon e Number [facility] 14[address] [place] [address] [phone] [facility] (ABNORMAL) HEMOGLOBIN A1C (10/24/2008 9:56 AM [...] Number [facility] 14[address] [facility] [place] [phone] [facility] documented in this encounter Visit Diagnoses Diagnosis Obesity Obesity, unspecified Obesity, unspecified documented in this encounter Care Teams Section Supervisor Relationship Specialty Start Date End Date Selma Good APRN INTERLOCKING MACHINE OPERATOR PCP - General 04/09/08 04/07/15 [address] [facility] [place] [address] documented as of this encounter
--- OUTSIDE RECORDS SUMMARY | 2022-05-09 13:37 | XMS_ITS | Encounter Summary ---
:1965 Author Organization [facility] Address [address] [place] [address]. [place] [address] Care Team Providers Name Role Phone Unavailable Primary Care Provider Unavailable Encounter Details Date Type Department Care Team Description 02/20/2006 Results Only [facility] Hamzah Kirkland MD [facility] Radiology Results HAMZAH KIRKLAND MD PA [address] [facility] 715 [place] [address] (Wo rk) Social History Tobacco [...] How often do you attend adventist or bahai Patient refused 08/08/2019 services? Do [...] Procedure Name Priority Date/Time Associated Diagnosis Comme [facility] X-RAY LUMBAR Routine 02/20/2006 8:33 PM Result s for this SPINE 2-3 VIEWS CDT procedure ar e in the results section. documented in this encounter Results X-RAY LUMBAR SPINE 2 VW (02/20/2006 8:33 PM CDT) Anatomical Region Laterality Modality Other Specimen (Source) Anatomical Collection Method Collection Time Re ceived Time Location / / Volume Laterality 02/20/2006 8:33 PM CDT Impressions 02/21/2006 4:04 PM CDT ?? THREE-VIEW LUMBAR SPINE, 02/20/06 ? HISTORY: ??Follow up spine surgery. ?? FINDINGS: ??There are a pedicular robbie an d screws at L5-S1. ??The remaining disk spaces are maintained. ?? No evidence for spondylolisthesis. Hamzah Kirkland MD GENERAL IMAGING documented in this encounter Visit Diagnoses Not on filedocumented in this encounter
--- OUTSIDE RECORDS SUMMARY | 2022-05-09 13:37 | XMS_ITS | Encounter Summary ---
:1965 Author Organization [facility] Address [address] [place] [address] Care Team Providers Name Role Phone Selma Good APRN RADIO ANTENNA INSTALLER Primary Care Provider [phone] Encounter Details Date Type Department Care Team Description 02/21/2006 Historic Results INTERFACED REPORT Zachary Kirkland MD JOHN STARK MD PA [address] [facility] 715 [place] [address] (Wo rk) Social History Tobacco [...] How often do you attend sikhism or islam Patient refused 08/08/2019 services? Do [...] filedocumented in this encounter Care Teams Project Controls Specialist Relationship Specialty Start Date End Date Danilo-Selma Mccoy, RESIDENT MANAGER RADIO ANTENNA INSTALLER PCP - General 04/09/08 04/07/[address] [facility] [address] [place], [place] [address] documented as of this encounter
--- OUTSIDE RECORDS SUMMARY | 2022-05-09 13:37 | XMS_ITS | Encounter Summary ---
:1965 Author Organization [facility] Address [address] [place] [address] Care Team Providers Name Role Phone Unavailable Primary Care Provider Unavailable Encounter Details Date Type Department Care Team Description 02/19/2006 Discharge Summary Hamzah Ramos M D (Soft Iron Inspector) HAMZAH RAMOS MD PA [address] [facility] 7[address] [place] [address] (Wo rk) Social History Tobacco [...] How often do you attend holiness or shinto Patient refused 08/08/2019 services? Do [...] Notes Hamzah Ramos - 07/05/2006 9:14 AM SENIOR INSTRUCTOR FINAL FINAL DISCHARGE DIAGNOSES: Intractable pain, discogenic [...] LEXIS Name: PADMINI CHOI MRN: [id number] Account: [id number] : 1965 Admit Date: [id number] Discharge Date: 02/24/2006 Document: [id number] cc: Jose Colin MD OR INSTRUCTOR documented in this encounter Plan of Treatment Not on filedocumented as of this encounter Visit Diagnoses Not on filedocumented in this encounter
--- OUTSIDE RECORDS SUMMARY | 2022-05-09 13:40 | XMS_ITS | Encounter Summary ---
:1965 Author Organization [facility] Address [address], [place] [address] Care Team Providers Name Role Phone Jose Colin DO Primary Care Provider [phone] Encounter Details Date Type Department Care Team Description 11/19/2007 Orders Only [facility] Tamra Ro MD Gastroenterology [address] [place] [address] [place] [address] [phone] Social History Tobacco Use Types Packs/Day Years [...] PAIN, OTHER SPECIFIED SITE... RUQ PAIN ?# [id number] HEPATOBILIARY IMAGING WITH EJECTION FRAC TION, 12/03/07. INDICATION: ??Abdominal pain and right u pper quadrant pain. TECHNIQUE: ??8.8 mCi of Ir66a-Naywkoic i ntravenous and 1.8 mcg CCK infused. [...] quadrant pain. Narrative 11/27/2007 10:47 PM CDT #[id number], RUQ PAIN ULTRASOUND ABDOMEN 11/23/07: COMPARISON: ??None. [...] filedocumented in this encounter Care Teams Production Planning Manager Relationship Specialty Start Date End Date Jose Colin, PCP - General 12/24/03 09/17/08 [address] [place] [address] documented as of this encounter
--- OUTSIDE RECORDS SUMMARY | 2022-05-09 13:40 | XMS_ITS | Encounter Summary ---
:1965 [facility] Address [address] [address] Care Team Providers Name Role Phone Jose Colin DO Primary Care Provider [phone] Reason for Visit Reason Onset Date Comments Test Results 12/06/2007 Encounter Details Date Type Department Care Team Description 12/06/2007 Telephone [facility] [address] Marcos Harris RN Test Results Care Clinic [address] [place] [address] Social History Tobacco Use Types [...] on filedocumented in this encounter Care Teams Wine Bottle Inspector Relationship Specialty Start Date End Date Jose Colin, PCP - General 12/24/03 09/17/08 [address] [place] [address] documented as of this encounter
--- OUTSIDE RECORDS SUMMARY | 2022-05-09 13:40 | XMS_ITS | Encounter Summary ---
:1965 [facility] Address [address] [address] Care Team Providers Name Role Phone Jose Colin DO Primary Care Provider [phone] Encounter Details Date Type Department Care Team Description 10/29/2007 [facility] Internal Sandy Light RN [address] [place] [address] [place], [place] [address] (Wo rk) Social History Tobacco Use Types [...] on filedocumented in this encounter Care Teams Exhaust Machine Operator Relationship Specialty Start Date End Date Jose Colin DO PCP - General 12/24/03 09/17/[address] [place] [phone] documented as of this encounter
--- OUTSIDE RECORDS SUMMARY | 2022-05-09 13:40 | XMS_ITS | Encounter Summary ---
:1965 Author Organization [facility] Address [address], [place] [address] Care Team Providers Name Role Phone Jose Colin DO Primary Care Provider Encounter Details Date Type Department Care Team Description 12/05/2007 [facility] Internal Med Wilda Burton RN [address] [place] [address] [address] [phone] [place], [place] [address] Social History Tobacco Use Types Packs/Day Years [...] filedocumented in this encounter Care Teams Clinical Aide Relationship Specialty Start Date End Date Jose Colin DO PCP - General 12/24/03 09/17/08 [address] [place] [address] documented as of this encounter
--- OUTSIDE RECORDS SUMMARY | 2022-05-09 13:40 | XMS_ITS | Encounter Summary ---
:1965 Author Organization [facility] Address [address] [place] [address] Care Team Providers Name Role Phone Jose Colin DO Primary Care Provider [phone] Encounter Details Date Type Department Care Team Description 12/31/2007 Orders Only [facility] DVT (Deep Venous [address] Thrombosis) [place], [place] [id number] Social History Tobacco Use Types Packs/Day Years [...] 14.5 sec Coumadin Yes [facility] Specimen Anatomical Collection Method Collection Time Receive d Time (Source) Location / / Volume Laterality 12/31/2007 8:10 AM 8 8:16 CDT AM CDT Jose Colin DO LAB_1 Performing Organization Address City/State/ZIP Code Phon e Number [facility] [phone] [facility] [address] [phone] documented in this encounter Visit Diagnoses Diagnosis DVT (deep venous thrombosis) ([facility]) Acute venous embolism and thrombosis of unspecified deep vessels of lower extremity documented in this encounter Care Teams Product Line Manager Relationship Specialty Start Date End Date Jose Colin DO PCP - General 12/24/03 09/17/08 [address] [place] [address] documented as of this encounter
--- OUTSIDE RECORDS SUMMARY | 2022-05-09 13:40 | XMS_ITS | Encounter Summary ---
:1965 Author Organization [facility] Address [address], [place] [address] Care Team Providers Name Role Phone DungJose gonzalez DO Primary Care Provider [phone] Reason for Visit Reason Onset Date Comments Test Results 12/10/2007 HIDA scan Encounter Details Date Type Department Care Team Description 12/10/2007 [facility] [address] Results ([facility] Luciana Riojas, AQUARIUM TANK ATTENDANT, scan) [address] [place] [address] [address] [phone] [place], [place] [id number] Social History Tobacco Use Types Packs/Day Years [...] filedocumented in this encounter Care Teams Production Foreman Relationship Specialty Start Date End Date Jose Colin DO PCP - General 12/24/03 09/17/08 [address] [place] [address] documented as of this encounter
--- OUTSIDE RECORDS SUMMARY | 2022-05-09 13:40 | XMS_ITS | Encounter Summary ---
:1965 Author Organization [facility] Address [address] [place] [address] Care Team Providers Name Role Phone Unassigned, Provider Primary Care Provider Unavailable Encounter Details Date Type Department Care Team Description 05/25/2021 Lab Visit [facility] Arthralgia, unspecified join t; [address] [facility] Fibromyalgia [place], [place] [address] Social History Tobacco Use Types Packs/Day Years [...] PM Arthralgia, Results for this ANTIBODY (CONSTANCE WEIGHING STATION OPERATOR unspecified join t procedure are in ASSAY) Fibromyalgia the results section. C-REACTIVE PROTEIN Routine 05/25/2021 12:16 PM Arthralgia, Re sults for this WEIGHING STATION OPERATOR unspecified join t procedure are in Fibromyalgia the results section. CK, TOTAL Routine 05/25/2021 12:16 PM Arthralgia, Results for this WEIGHING STATION OPERATOR unspecified join t procedure are in Fibromyalgia the results section. ESR Routine 05/25/2021 12:16 PM Arthralgia, Results for this WEIGHING STATION OPERATOR unspecified join t procedure are in Fibromyalgia the results section. documented in this encounter Results CPK - CK Total (05/25/2021 12:16 PM WEIGHING STATION OPERATOR) P athologist Signature CK, Total 64 29 - 168 05/25/2021 [facility] U/L 3:03 PM WEIGHING STATION OPERATOR LABOR[facility]ORY Specimen Anatomical Collection Method / Collection Time Recei terell Time (Source) Location / Volume Laterality Blood Venipuncture / 05/25/2021 12:16 1 Unknown PM WEIGHING STATION OPERATOR 12:16 PM WEIGHING STATION OPERATOR Kerrie Iqbal MD LAB_1 Performing Organization Address City/[facility]/ZIP Code Phon e Narayan [facility] [address] [place] [address] ESR - Sedimentation Rate (05/25/2021 12:16 PM WEIGHING STATION OPERATOR) Patholo gist Method Time Signature Sedimentation Rate 6 0 - 20 05/25/2021 [place] mm/hr 12:56 PM WEIGHING STATION OPERATOR LABORATORY Specimen Anatomical Collection Method / Collection Time Recei terell Time (Source) Location / Volume Laterality Blood Venipuncture / 05/25/2021 12:16 1 Unknown PM WEIGHING STATION OPERATOR 12:16 PM WEIGHING STATION OPERATOR Kerrie Iqbal MD LAB_1 Performing Organization Address City/[facility]/ZIP Code Phon e Narayan [facility] [address] [place] [address] YMU-[id number]-TL-DNA by Constance Assay (05/25/2021 12:16 PM WEIGHING STATION OPERATOR) P athologist Signature Anti-dsDNA Ab <8.0 <8.0 IU/mL 06/03/2021 [facility] (Constance Assay) 5:06 PM WEIGHING STATION OPERATOR INTER[facility]ACED Specimen Anatomical Collection Method / Collection Time Recei terell Time (Source) Location / Volume Laterality Blood Venipuncture / 05/25/2021 12:16 1 Unknown PM WEIGHING STATION OPERATOR 12:16 PM WEIGHING STATION OPERATOR Narrative [facility] INTERFACED - 06/03/2021 5:06 PM WEIGHING STATION OPERATOR Test(s) [id number] Ab by Constance(RDL) was developed and its performance charac teristics determined by [facility]. It has not been cleared or a pproved by the Food and Drug Administration. Performed at: ??01 - [address] [place] [address] A ??[id number] [place] Inspector: Vadim Palacios MD, Phone: ? ?[phone] Kerrie Iqbal MD LAB_1 Performing Organization Address City/State/ZIP Code Phon e Number [facility] INTERFACED [address] [address] [place] [address] CRP - C Reactive Protein (05/25/2021 12:16 PM WEIGHING STATION OPERATOR) P athologist Signature C-Reactive <0.5 0.0 - 0.7 05/25/2021 [facility] Protein mg/dL 3:03 PM WEIGHING STATION OPERATOR LABORATORY Specimen Anatomical Collection Method / Collection Time Recei terell Time (Source) Location / Volume Laterality Blood Venipuncture / 05/25/2021 12:16 1 Unknown PM WEIGHING STATION OPERATOR 12:16 PM WEIGHING STATION OPERATOR Kerrie Iqbal MD LAB_1 Performing Organization Address City/State/ZIP Code Phon e Number [facility] [address] [place] [address] documented in this encounter Visit Diagnoses Diagnosis Arthralgia, unspecified joint Fibromyalgia Mylagia and myositis, unspecified documented in this encounter Care Teams Collections And Archives Director Relationship Specialty Start Date End Date Unassigned, Provider PCP - General 09/18/[address] [place] [address] documented as of this encounter
--- OUTSIDE RECORDS SUMMARY | 2022-05-09 13:40 | XMS_ITS | Encounter Summary ---
:1965 Author Organization [facility] Address [address] [place] [address] Care Team Providers Name Role Phone Jose Colin DO Primary Care Provider [phone] Encounter Details Date Type Department Care Team Description 11/23/2007 Orders Only [facility] Radiology [address] [place], [place] [phone] Social History Tobacco Use Types Packs/Day Years [...] on filedocumented in this encounter Care Teams Computer Assembler Relationship Specialty Start Date End Date Jose Colin DO PCP - General 12/24/03 09/17/[address] [place] [address] documented as of this encounter
--- OUTSIDE RECORDS SUMMARY | 2022-05-09 13:40 | XMS_ITS | Encounter Summary ---
:1965 Author Organization [facility] Address [address], [place] [address] Care Team Providers Name Role Phone Jose Colin DO Primary Care Provider [phone] Encounter Details Date Type Department Care Team Description 11/26/2007 [facility] Internal Med Wilda Burton RN [address] [place] [address] [address] [phone] [place], [place] [address] Social History Tobacco Use Types [...] on filedocumented in this encounter Care Teams Warp Knitting Machine Operator Relationship Specialty Start Date End Date Jose Colin, PCP - General 12/24/03 09/17/08 [address] [place] [id number] documented as of this encounter
--- OUTSIDE RECORDS SUMMARY | 2022-05-09 13:40 | XMS_ITS | Encounter Summary ---
:1965 Author Organization [facility] Address [address], [place] [address] Care Team Providers Name Role Phone Jose Colin DO Primary Care Provider [phone] Encounter Details Date Type Department Care Team Description 10/03/2007 [facility] Internal Med Wilda Burton RN [address] [place] [address] [address] [phone] [place], [place] [address] Social History Tobacco Use Types [...] filedocumented in this encounter Care Teams Retail Account Manager Relationship Specialty Start Date End Date Jose Colin DO PCP - General 12/24/03 09/17/08 [address] [place] [phone] documented as of this encounter
--- OUTSIDE RECORDS SUMMARY | 2022-05-09 13:40 | XMS_ITS | Encounter Summary ---
:1965 Author Organization [facility] Address [address], [place] [address] Care Team Providers Name Role Phone DixieJose Jerrell DO Primary Care Provider [phone] Reason for Referral Specialty Diagnoses / Procedures Referred By Contact Refer red To Contact Thaddeus Ro MD [address] [place] [address] Referral ID Status Reason Start Date Expiration Date Visits Requ ested Visits Authorized Reason for Visit Reason Comments LOOSE STOOLS Encounter Details Date Type Department Care Team Description 11/19/2007 Office Visit [facility] Thaddeus Ro Abdo minal Pain, Right [address] [facility] [address] (Primary Dx) [address] [place] [address] Social History Tobacco Use Types Packs/Day [...] documented in this encounter Patient Instructions Patient InstructionsGama Awandaily Nita - 11/19/2007 3:30 PM CDT Abdominal Ultrasound. This is scheduled for SundayNovember 22 at 1:30pm. Nothing to eat or drink 8 hours prior, this is done over at the [address] [place] [address] on [facility]. If you need to cancel or reschedule please call [phone]. If you have any questions or concerns please call [phone]. Option 3 for the nurse line. documented [...] There is a suggestion of a positive Levya's sign. There is no visceromegaly, however. There [...] over the results and for further recommendations. Thaddeus Ro MD tdm Dictated: 11/19/2007 15:40:18 Transcribed: 11/20/2007 13:41:47 Doc #: [id number] cc:Jose Colin DO, Referring Physician 1 Page 1 Patient Name: PADMINI CHOI Visit Date: 11/19/2007 [facility] REC[facility] [address] [address] Page 1 Patient: PADMINI CHOI Location: [facility] HPN: [id number] Visit Date: 11/19/2007 Date of : 1965 [...] rimary documented in this encounter Care Teams Endoscopy Tech Relationship Specialty Start Date End Date Jose Colin DO PCP - General 12/24/03 09/17/[address] [place] [address] [place] [address] documented as of this encounter
--- OUTSIDE RECORDS SUMMARY | 2022-05-09 13:40 | XMS_ITS | Encounter Summary ---
:1965 Author Organization [facility] Address [address] [place] [address] Care Team Providers Name Role Phone Jose Colin DO Primary Care Provider [phone] Encounter Details Date Type Department Care Team Description 11/26/2007 Orders Only [facility] DVT (Deep Venous [address] Thrombosis) [place], [place] [id number] Social History Tobacco Use Types Packs/Day Years [...] 14.5 sec Coumadin Yes [facility] 4[facility]5 [facility] Specimen Anatomical Collection Method Collection Time Receive d Time (Source) Location / / Volume Laterality 11/26/2007 7:34 AM 8 7:36 CDT AM CDT Jose Colin DO LAB_1 Performing Organization Address City/State/ZIP Code Phon e Number [facility] [phone] [facility] [address] [phone] documented in this encounter Visit Diagnoses Diagnosis DVT (deep venous thrombosis) ([facility]) Acute venous embolism and thrombosis of unspecified deep vessels of lower extremity documented in this encounter Care Teams Sales Development Executive Relationship Specialty Start Date End Date Jose Colin DO PCP - General 12/24/03 09/17/08 [address] [place] [address] documented as of this encounter
--- OUTSIDE RECORDS SUMMARY | 2022-05-09 13:40 | XMS_ITS | Encounter Summary ---
:1965 Author Organization [facility] Address [address] [place] [address] Care Team Providers Name Role Phone Jose Colin DO Primary Care Provider [phone] Encounter Details Date Type Department Care Team Description 01/27/2008 Orders Only [facility] DVT (Deep Venous [address] [place] [address] Thrombosis) [place], [place] [phone] Social History Tobacco Use Types Packs/Day Years [...] [facility] 14.5 sec Coumadin Yes [facility]1 [facility] Specimen Anatomical Collection Method Collection Time Receive d Time (Source) Location / / Volume Laterality 01/27/2008 7:37 AM 8 8:00 CDT AM CDT Jose Colin DO LAB_1 Performing Organization Address City/State/ZIP Code Phon e Number [facility] [phone] [facility] [address] [phone] documented in this encounter Visit Diagnoses Diagnosis DVT (deep venous thrombosis) ([facility]) Acute venous embolism and thrombosis of unspecified deep vessels of lower extremity documented in this encounter Care Teams Manager Of Training And Development Relationship Specialty Start Date End Date Jose Colin DO PCP - General 12/24/03 09/17/08 [address] [place] [address] documented as of this encounter
--- OUTSIDE RECORDS SUMMARY | 2022-05-09 13:40 | XMS_ITS | Encounter Summary ---
:1965 Author Organization [facility] Address [address] [place] [address] Care Team Providers Name Role Phone Jose Colin DO Primary Care Provider [phone] Encounter Details Date Type Department Care Team Description 10/03/2007 Orders Only [facility] DVT (Deep Venous [address] Thrombosis) [place], [place] [id number] Social History Tobacco Use Types Packs/Day Years [...] 14.5 sec Coumadin Yes [facility]R 1.4 [facility] Specimen Anatomical Collection Method Collection Time Receive d Time (Source) Location / / Volume Laterality 10/03/2007 7:27 AM 8 7:28 CDT AM CDT Jose Colin DO LAB_1 Performing Organization Address City/State/ZIP Code Phon e Number [facility] [phone] [facility] [address] [phone] documented in this encounter Visit Diagnoses Diagnosis DVT (deep venous thrombosis) ([facility]) Acute venous embolism and thrombosis of unspecified deep vessels of lower extremity documented in this encounter Care Teams Glass Bulb Machine Adjuster Relationship Specialty Start Date End Date Jose Colin DO PCP - General 12/24/03 09/17/08 [address] [place] [address] documented as of this encounter
--- OUTSIDE RECORDS SUMMARY | 2022-05-09 13:40 | XMS_ITS | Encounter Summary ---
:1965 Author Organization [facility] Address [address] [place] [address] Care Team Providers Name Role Phone Jose Colin DO Primary Care Provider [phone] Encounter Details Date Type Department Care Team Description 10/16/2007 Orders Only [facility] DVT (Deep Venous [address] Thrombosis) [place], [place] [phone] Social History Tobacco Use Types Packs/Day Years [...] 14.5 sec Coumadin Yes [facility]R 1.9 [facility] Specimen Anatomical Collection Method Collection Time Receive d Time (Source) Location / / Volume Laterality 10/16/2007 8:06 AM 8 8:07 CDT AM CDT Jose Colin DO LAB_1 Performing Organization Address City/State/ZIP Code Phon e Number [facility] [phone] [facility] [address] [phone] documented in this encounter Visit Diagnoses Diagnosis DVT (deep venous thrombosis) ([facility]) Acute venous embolism and thrombosis of unspecified deep vessels of lower extremity documented in this encounter Care Teams Engineering Documentation Specialist Relationship Specialty Start Date End Date Jose Colin DO PCP - General 12/24/03 09/17/08 [address] [place] [address] documented as of this encounter
--- OUTSIDE RECORDS SUMMARY | 2022-05-09 13:40 | XMS_ITS | Encounter Summary ---
:1965 Author Organization [facility] Address [address] [place] [address] Care Team Providers Name Role Phone Jose Colin DO Primary Care Provider [phone] Encounter Details Date Type Department Care Team Description 10/16/2007 [facility] Internal Med Laura Martinez [address] [facility] Aleyda, [place] [address] [facility] [phone] [address] [place], [place] [address] (Wo rk) Social History [...] on filedocumented in this encounter Care Teams Illustrator Set Relationship Specialty Start Date End Date Jose Colin, DO PCP - General 12/24/03 09/17/08 [address] [place] [address] documented as of this encounter
--- OUTSIDE RECORDS SUMMARY | 2022-05-09 13:40 | XMS_ITS | Encounter Summary ---
:1965 Author Organization [facility] Address [address] [place] [address] Care Team Providers Name Role Phone Jose Colin DO Primary Care Provider [phone] Encounter Details Date Type Department Care Team Description 10/23/2007 Orders Only [facility] DVT (Deep Venous [address] Thrombosis) [place], [place] [phone] Social History Tobacco Use Types Packs/Day Years [...] [facility] 14.5 sec Coumadin Yes [facility] Specimen Anatomical Collection Method Collection Time Receive d Time (Source) Location / / Volume Laterality 10/23/2007 7:31 AM 8 7:33 CDT AM CDT Jose Colin DO LAB_1 Performing Organization Address City/State/ZIP Code Phon e Number [facility] [phone] [facility] [address] [phone] documented in this encounter Visit Diagnoses Diagnosis DVT (deep venous thrombosis) ([facility]) Acute venous embolism and thrombosis of unspecified deep vessels of lower extremity documented in this encounter Care Teams Cardiac Cath Rn Relationship Specialty Start Date End Date Jose Colin DO PCP - General 12/24/03 09/17/08 [address] [place] [address] documented as of this encounter
--- OUTSIDE RECORDS SUMMARY | 2022-05-09 13:40 | XMS_ITS | Encounter Summary ---
:1965 Author Organization [facility] Address [address] [address] Care Team Providers Name Role Phone Jose Colin DO Primary Care Provider [phone] Encounter Details Date Type Department Care Team Description 12/31/2007 [facility] Internal Med Wilda Burton RN [address] [place] [address] [address] [phone] [place], [place] [address] Social History Tobacco Use Types [...] on filedocumented in this encounter Care Teams Trainmaster Relationship Specialty Start Date End Date Jose Colin DO PCP - General 12/24/03 09/17/[address] [place] [phone] documented as of this encounter
--- OUTSIDE RECORDS SUMMARY | 2022-05-09 13:40 | XMS_ITS | Encounter Summary ---
:1965 Author Organization [facility] Address [address], [place] [address] Care Team Providers Name Role Phone Jose Colin DO Primary Care Provider [phone] Encounter Details Date Type Department Care Team Description 01/27/2008 Anticoagulation [facility] Internal Brigido Burch DVT ( Deep Venous Medicine RN Thrombosis) (Primary [address] [facility] Dx) [place] [address] CLINIC [phone] [address] [place], [place] [phone] Social History Tobacco Use Types Packs/Day Years [...] venous thrombosis) ([facility]) - Argelia bravo Acute venous embolism and thrombosis of unspecified deep vessels of lower extremity documented in this encounter Care Teams Therapeutic Specialist Relationship Specialty Start Date End Date Jose Colin DO PCP - General 12/24/03 09/17/08 [address] [place] [address] documented as of this encounter
--- OUTSIDE RECORDS SUMMARY | 2022-05-09 13:40 | XMS_ITS | Encounter Summary ---
:1965 Author Organization [facility] Address [address] [place] [address] Care Team Providers Name Role Phone Jose Colin DO Primary Care Provider [phone] Encounter Details Date Type Department Care Team Description 12/19/2007 Orders Only [facility] DVT (Deep Venous [address] Thrombosis) [place], [place] [phone] Social History Tobacco Use Types Packs/Day Years [...] [facility] 14.5 sec Coumadin Yes [facility]R 3.0 [facility] Specimen Anatomical Collection Method Collection Time Receive d Time (Source) Location / / Volume Laterality 12/19/2007 7:22 AM 8 7:45 CDT AM CDT Jose Colin DO LAB_1 Performing Organization Address City/State/ZIP Code Phon e Number [facility] [phone] [facility] [address] [phone] documented in this encounter Visit Diagnoses Diagnosis DVT (deep venous thrombosis) ([facility]) Acute venous embolism and thrombosis of unspecified deep vessels of lower extremity documented in this encounter Care Teams Underground Mine Machinery Mechanic Relationship Specialty Start Date End Date Jose Colin DO PCP - General 12/24/03 09/17/08 [address] [place] [address] documented as of this encounter
--- OUTSIDE RECORDS SUMMARY | 2022-05-09 13:40 | XMS_ITS | Clinical Summary ---
:1965 [facility] Address [address], [place] [address] Care Team Providers Name Role Phone Unassigned, [...] for each transition of care or referral. Mesh [place] Allergies Active Allergy Reactions Severity Noted Date Comments Erythromycin Hives High 06/20/2001 Medications Medication Sig Dispensed Refills Start Date End Date Status OMEPRAZOLE (PRILOSEC) One by mouth 30 0 05/03/2007 Active 20MG ORAL every day CAPSIndications: GERD (gastroesophageal reflux disease) Additional Information Patient taking differently: 20 mg Oral BID, Reported on 05/25/2021 ASPIRIN 81 MG OR CHEW Take one tablet by 0 8 Active mouth every day. topiramate (TOPAMAX) [...] MG Take 25 mg by mouth 0 Active tablet two times daily as needed. [...] Influenza IIV4 (Quadrivalent) 0.5mL 06/12/2017, 03/23/2016, 04/08/2015, (38885) 05/30/2013 PPSV23 (Pneumovax) 10/06/2014 Pfizer (Comirnaty) COVID-19, [...] Comments Blood Pressure 120/62 05/25/2021 11:09 AM JAVA J2EE SOFTWARE ENGINEER Pulse 59 05/25/2021 11:09 AM JAVA J2EE SOFTWARE ENGINEER Temperature 36.7 ??C (98.1 ??F) 05/25/2021 11:09 AM JAVA J2EE SOFTWARE ENGINEER Respiratory Rate 16 08/23/2007 1:13 PM CDT Oxygen Saturation 97% 08/23/2007 1:13 PM CDT Inhaled Oxygen Concentration - - Weight 78.8 kg (173 lb 12.8 oz) 05/25/2021 11:09 AM JAVA J2EE SOFTWARE ENGINEER Height 160 cm (5' 3) 08/23/2007 [...] of 2) 2013 COVID-19 Vaccine (3 - 11/19/2020 09/24/2020, 09/03/2020 Booster for Pfizer series) Influenza [...] this topic Medical Devices Implanted Type Area Manager Credit Risk Device Shelf Model / Identifier Expiration Date Ser ial / Lot Bone Canc Crushed 60cc - [id number] BIOLOGIC Left: Henna [id number] / Implanted: Qty: 1 on 04/15/2007 at [facility] OTS [id number] / Device Cage Ray Thrd 12x26 - [id number] DEVICE Left: Henna [id number] / Implanted: Qty: 2 on 04/15/2007 at [facility] / [id number] Cage Ray [id number] - [id number] Left: Henna [id number] / Implanted: Qty: 1 on 04/15/2007 at [facility] / [id number] Insurance Payer Benefit Plan / Subscriber ID Effective Dates Phone Addre ss Type Group BCBS BCBS OUT OF [id number] 2016-Present [address] [address] [place] [address] (Work) Megan Choi Personal/Family Self 1965 [address] [place] (Home) DAVID LARA [phone] (Work) Advance Directives Latest Code Status on File Code Status Date Activated Date Inactivated Comments Full Code 04/15/2007 8:03 AM 04/19/2007 8:53 PM Care Teams Train Gate Attendant Relationship Specialty Start Date End Date Unassigned, Provider PCP - General 09/18/[address] [place] [address]
--- OUTSIDE RECORDS SUMMARY | 2022-05-09 13:40 | XMS_ITS | Encounter Summary ---
:1965 Author Organization [facility] Address [address] [place] [address] Care Team Providers Name Role Phone Unassigned, Provider Primary Care Provider Unavailable Reason for Referral Procedure/Equipment (Routine) - Incomplete Specialty Diagnoses / Procedures Referred By Contact Refer red To Contact Diagnoses Arthralgia, unspecified joint Fibromyalgia Kerrie Iqbal MD Procedures XR Hands 1 View Bilat Arthritis [address] [place], [place] [address] Referral ID Status Reason Start Date Expiration Date Visits V isits Requested Authorized [id number] Incomplete 05/25/2021 08/24/2022 1 1 KER OFF Reason for Visit Reason Comments CONSULT Encounter Details Date Type Department Care Team Description 05/25/2021 Office Visit Kerrie Grijalva Arthralgi a, unspecified joint (Primary Dx); Rheumatology MD Jer[place] Fibromyalgia; [address] [facility] Chronic neck pain with histo ry of cervical spinal surgery; [place] [address] [facility] Chronic low back pain with sciatica, sci atica laterality unspecified, unspecified back pain laterality; [phone] [place], [place] Positive A NA (antinuclear antibody) [address] (Wo rk) Social History Tobacco Use Types Packs/Day Years Used Date Smoking Tobacco: Never Smokeless Tobacco: Never Alcohol Use Standard Drinks/Week Comments Yes 0 (1 standard drink = 0.6 oz pure alcoho l) rarely Sex Assigned at Date Recorded Not on file documented as of this encounter Last Filed Vital Signs Vital Sign Reading Time Taken Comments Blood Pressure 120/62 05/25/2021 11:09 AM STRIKER OFF Pulse 59 05/25/2021 11:09 AM STRIKER OFF Temperature 36.7 ??C (98.1 ??F) 05/25/2021 11:09 AM STRIKER OFF Respiratory Rate - - Oxygen Saturation - - Inhaled Oxygen Concentration - - Weight 78.8 kg (173 lb 12.8 oz) 05/25/2021 11:09 AM STRIKER OFF Height - - Body Mass Index - [...] in helping patients better manage chronic pain. Trj-lzxfjirlix-djeei treatments An exercise program is an essential [...] pool. Many community pools such as the [facility] offer ???fibrocize?? water aerobics programs. A [...] also help reduce stress. Occupational therapists at [facility] offer a program called the Lifestyle renewal program (see information on last page), where you can learn these techniques, and the majority of patients report that this is helpful. Pain psychologists at [facility] are another helpful resource. Emma Horn, PhD, Mandy Roldan M.Ed, LP, Psychologist at [facility] [Chronic pain (headaches, fibromyalgia, etc.) and irritable bowel syndrome - evaluation and treatment], and Rajiv Sutherland, Ph.D., LP, Psychologist at [facility] (Chronic pain evaluation). Patients may schedule appointments [...] strengthening can help in someinstances, as can tire care manager. Warm water pool physical therapy at places like the [facility] and [facility] can be prescribed by your physician, [...] trigger points can be injected by your Pocket Setter Lockstitch or other providers with a mixture of [...] internal organs. Resources ??? National Fibromyalgia Association [phone] www.fmaware.org ??? National [place] of Arthritis and Musculoskeletal and Skin Diseases [phone] www.niams.nih.gov ??? National Center for Complementary and Alternative Medicine [phone] www.[facility].nih.gov ??? [facility] (Water aerobics, heated pool to 91 degrees) [address] [place] [address]; charges apply. What else can be tried? Sometimes, for a minority of patients, the above interventions do not result in control of fibromyalgia. In these cases, you should consider a chronic pain program. Several of these and additional resources are listed below: [facility]), a nursing practice for fibromyalgia patients, has opened at [address] [place] [address], to serve [facility]. Lashawn Larios, RN, PARTNER MANAGEMENT CONSULTANT and Staci Porter MS, RN, are the founders and co-owners. [phone] [facility], Dr. Emir Saini , [address] [facility] [place] [address], [place] [address] Also offices in [place] and [place]. , [email or web address] [facility] - Aquatic Therapy: [facility], [place], Ann Velasquez, [place], [facility], [facility]. [email or web address] [address] [place] [address] Outpatient therapy: (physical, occupational and speech therapy; regional company truck driver evaluations) Initial appointment: [phone]; Follow-up appointment: [phone] Aquatic therapy, Ann Yusuf [phone] [facility], [email or web address] [address] [facility], [place] [address], . [facility] - Pain Management [address] [place] [address] Appointments: [phone] [facility] [email or web address]/ [email or web address], [address], [place] [address]; Also a location in [place]. [facility] [phone] [facility] [facility] [address] [facility], [place] [address] [facility] - they focus more on back pain, but offer cognitive behavioral therapy. Tip [facility] [phone] [facility] [phone], [address] [facility], [address], [place] [address] Saleem Mayberry MD [phone], publication specialist, [place] [phone] [facility], , [place], [place] [address] [place] [address] [facility] (will treat fibromyalgia and chronic pain syndrome in additionto head & neck disorders; also have MedX equipment for chronic back pain). [email or web address] ??? [place]: [address] [facility], [address], [address]; [phone] ??? [place]: [address] [facility], [address], [address]; [phone] ??? [place]: [address] [facility], [address]; [phone] ??? [place]: [address], [address]; [phone] Lifestyle Renewal Program - At [facility] The LifeStyle Renewal Program is an [...] symptoms and improve quality of life. Location: [facility] and [place] Providers: Occupational Therapists with specialty training. Program: [...] Increase understanding - provide education 4. Use fsvi-fyrk-pgzptf therapies to reframe pain/symptom experience 5. Modify behaviors to improve function 6. Relieve stress 7. Set up support systems 8. Increase physical activity 9. Improve sleep Education is provided in the areas of pacing, exercise, relaxation, sleep hygiene, body mechanics, postural awareness, ergonomics, Qigong, Healing Touch, problem solving and adaptive equipment. How to Contact: General information/scheduling KER OFF documented in this encounter Progress Notes Kerrie Iqbal MD - 05/25/2021 11:00 AM CST Rheumatology New Patient/Consult Note Encounter Date: 05/25/2021 Referral: Kylah Cho MD [address] [place] [address] Reason for consult: Chief Complaint Patient presents with ??? CONSULT HPI: The patient is a 56 y.o. female with medical history of type II DM, degenerative spine disease with history of cervical and lumbar fusion, and fibromyalgia presenting to our clinic today for evaluation of arthralgias and abnormal lab. Outside labs from [facility] reviewed. She was previously scheduled to see rheumatology in December but had issues with the video visit. FALGUNI done at [facility] in November 2020 1:160 dense fine speckled. She had a normal ESR and CRP at that time. RF and CCP negative. She had repeat blood work done in February 2021-results uploaded in MEDIA and reviewed. FALGUNI positive with negative WILNER panel including anti chromatin, anti SM, BROOMMAKER, Scl-70, SSA, SSB. ESR and CRP normal. [...] was just recently increased. 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 [...] CAREPLAN: ANTI-COAGULATION(Exp-05/01/08) ??? DVT (deep venous thrombosis) ([facility]) 05/01/2007 Priority: Low priority Class: [...] proximal and distal, upper and lower extremities. Blanchard Grinder Operator 5/5. Psych: Normal affect, normal speech. MSK: [...] left Hands: FROM, 100% fist making, good machine stonecutter strength, there is some slight fullness more [...] 04/16/2007 Protein, Urine Qual Negative 04/16/2007 Specific Jachin,Ur 1.001 (L) 04/16/2007 Urobil, Urine Qual <2.0 04/16/2007 Epith, Squamous Occ 02/15/2006 WBC'S 1 04/16/2007 Bact Occ 04/16/2007 No results found for: CRP No results found for: ANASCREEN, RFQ, ESR Lab Results Component Value Date TSH, with Reflex 1.80 10/07/2005 outside labs from [facility] [place] reviewed, noted in HPI MRI lumbar spine [...] All questions answered. Kerrie Iqbal MD Rheumatology [place] Flex Billing based on: time Total time for the visit was 65 minutes including, but not limited to, sgq-spzv-rl-face time spent reviewing records, counseling, and coordination of care. Thank you for involving me in this patient's care. This note was dictated using voice recognition software. There may be sound- alike and/or punctuationerrors. Copy to Kylah Cho MD [address] [place] [address] KER OFF documented in this encounter Plan of Treatment Not on filedocumented as of this encounter Results XR Hands 1 View Bilat Arthritis (05/25/2021 12:24 PM STRIKER OFF) Anatomical Region Laterality Modality Upper Extremity, Hand Digital Radiograph y Specimen (Source) Anatomical Collection Method Collection Time Re ceived Time Location / / Volume Laterality 05/25/2021 12:19 PM STRIKER OFF Impressions 05/25/2021 2:16 PM STRIKER OFF COMPARISON: ??None. FINDINGS: ??Single view bilateral AP [...] CPK - CK Total (05/25/2021 12:16 PM STRIKER OFF) P athologist Signature CK, Total 64 29 - 168 05/25/2021 [place] U/L 3:03 PM STRIKER OFF LABORATORY Specimen Anatomical Collection Method / Collection Time Recei terell Time (Source) Location / Volume Laterality Blood Venipuncture / 05/25/2021 12:16 1 Unknown PM STRIKER OFF 12:16 PM STRIKER OFF Kerrie Iqbal MD LAB_1 Performing Organization Address [facility] Phon e Narayan [facility] [address] [place] [address] ESR - Sedimentation Rate (05/25/2021 12:16 PM STRIKER OFF) Patholo gist Method Time Signature Sedimentation Rate 6 0 - 20 05/25/2021 [place] mm/hr 12:56 PM STRIKER OFF LABORATORY Specimen Anatomical Collection Method / Collection Time Recei terell Time (Source) Location / Volume Laterality Blood Venipuncture / 05/25/2021 12:16 1 Unknown PM STRIKER OFF 12:16 PM STRIKER OFF Kerrie Iqbal MD LAB_1 Performing Organization Address [facility] Phon jeramie [facility] [address] [place] [address] CKW-Zfjh-LR-DNA by Kirstie Assay (05/25/2021 12:16 PM STRIKER OFF) P athologist Signature Anti-dsDNA Ab <8.0 <8.0 IU/mL 06/03/2021 [facility] (Kirstie Assay) 5:06 PM STRIKER OFF INTERFACED Specimen Anatomical Collection Method / Collection Time Recei terell Time (Source) Location / Volume Laterality Blood Venipuncture / 05/25/2021 12:16 1 Unknown PM STRIKER OFF 12:16 PM STRIKER OFF Narrative [facility] INTERFACED - 06/03/2021 5:06 PM STRIKER OFF Test(s) [id number] Ab by Kirstie(RDL) was developed and its performance charac teristics determined by [facility]. It has not been cleared or a pproved by the Food and Drug Administration. Performed at: ??01 - [facility] [address] [place] [address] A ??[id number] Investor Relations Analyst: Vadim Palacios MD, Phone: ? ?[phone] Kerrie Iqbal MD LAB_1 Performing Organization Address City/State/ZIP Code Phon e Number [facility] INTERFACED [address] [address] [place] [address] CRP - C Reactive Protein (05/25/2021 12:16 PM STRIKER OFF) P athologist Signature C-Reactive <0.5 0.0 - 0.7 05/25/2021 [place] Protein mg/dL 3:03 PM STRIKER OFF LABORATORY Specimen Anatomical Collection Method / Collection Time Recei terell Time (Source) Location / Volume Laterality Blood Venipuncture / 05/25/2021 12:16 1 Unknown PM STRIKER OFF 12:16 PM STRIKER OFF Kerrie Iqbal MD LAB_1 Performing Organization Address City/State/ZIP Code Phon e Number [facility] [facility] [address] [place] [phone] documented in this encounter Visit Diagnoses [...] unspecified documented in this encounter Care Teams Health Program Director Relationship Specialty Start Date End Date Unassigned, Provider PCP - General 09/18/[address] [place] [address] documented as of this encounter
--- OUTSIDE RECORDS SUMMARY | 2022-05-09 13:40 | XMS_ITS | Encounter Summary ---
:1965 Author Organization [facility] Address [address], [place] [address] Care Team Providers Name Role Phone Jose Colin DO Primary Care Provider [phone] Encounter Details Date Type Department Care Team Description 12/19/2007 [facility] Internal Med Wilda Burton RN [address] [place] [address] [address] [phone] [place], [place] [address] Social History Tobacco Use Types [...] on filedocumented in this encounter Care Teams Pond Tender Relationship Specialty Start Date End Date Jose Colin, PCP - General 12/24/03 09/17/08 [address] [place] [phone] documented as of this encounter
--- OUTSIDE RECORDS SUMMARY | 2022-05-09 13:40 | XMS_ITS | Encounter Summary ---
:1965 Author Organization [facility] Address [address] [place] [address] Care Team Providers Name Role Phone Jose Colin DO Primary Care Provider Encounter Details Date Type Department Care Team Description 12/03/2007 Orders Only [facility] [address] [place] [address] Social History Tobacco Use Types Packs/Day Years [...] on filedocumented in this encounter Care Teams Nozzle Operator Relationship Specialty Start Date End Date Jose Colin DO PCP - General 12/24/03 09/17/[address] [place] [address] documented as of this encounter
--- OUTSIDE RECORDS SUMMARY | 2022-05-09 13:40 | XMS_ITS | Encounter Summary ---
:1965 Author Organization [facility] Address [address] [place] [address] Care Team Providers Name Role Phone Jose Colin DO Primary Care Provider [phone] Encounter Details Date Type Department Care Team Description 10/29/2007 Orders Only [facility] DVT (Deep Venous [address] Thrombosis) [place], [place] [id number] Social History Tobacco Use Types Packs/Day Years [...] Coumadin Yes [facility] 2.0 [facility] Specimen Anatomical Collection Method Collection Time Receive d Time (Source) Location / / Volume Laterality 10/29/2007 7:50 AM 8 7:51 CDT AM CDT Jose Colin DO LAB_1 Performing Organization Address City/State/ZIP Code Phon e Number [facility] [phone] [facility] [address] [phone] documented in this encounter Visit Diagnoses Diagnosis DVT (deep venous thrombosis) ([facility]) Acute venous embolism and thrombosis of unspecified deep vessels of lower extremity documented in this encounter Care Teams Trans Router Relationship Specialty Start Date End Date Jose Colin DO PCP - General 12/24/03 09/17/08 [address] [place] [address] documented as of this encounter
--- OUTSIDE RECORDS SUMMARY | 2022-05-09 13:40 | XMS_ITS | Encounter Summary ---
:1965 Author Organization [facility] Address [address] [place] [address] Care Team Providers Name Role Phone Unassigned, Provider Primary Care Provider Unavailable Reason for Visit Procedure/Equipment (Routine) - Incomplete Specialty Diagnoses / Procedures Referred By Contact Refer red To Contact Diagnoses Arthralgia, unspecified joint Fibromyalgia Kerrie Iqbal MD Procedures XR Hands 1 View Bilat Arthritis [address] [place], [place] [address] Referral ID Status Reason Start Date Expiration Date Visits V isits Requested Authorized [id number] Incomplete 05/25/2021 08/24/2022 1 1 Encounter Details Date Type Department Care Team Description 05/25/2021 Ancillary [place], Arthralgia, uns pecified joint; Procedure Radiology Kerrie Alvarez MD Fibromyalgia [address] [phone] Social History Tobacco Use Types Packs/Day Years [...] Arthralgia, Resul ts for this BILAT ARTHRITIS CARPET FINISHING SUPERVISOR unspecified join t procedure are in Fibromyalgia the results section. documented in this encounter Results XR Hands 1 View Bilat Arthritis (05/25/2021 12:24 PM CARPET FINISHING SUPERVISOR) Anatomical Region Laterality Modality Upper Extremity, Hand Digital Radiograph y Specimen (Source) Anatomical Collection Method Collection Time Re ceived Time Location / / Volume Laterality 05/25/2021 12:19 PM CARPET FINISHING SUPERVISOR Impressions 05/25/2021 2:16 PM CARPET FINISHING SUPERVISOR COMPARISON: ??None. FINDINGS: ??Single view bilateral [...] unspecified documented in this encounter Care Teams Consulting Project Director Relationship Specialty Start Date End Date Unassigned, Provider PCP - General 09/18/[address] [place] [address] documented as of this encounter
--- OUTSIDE RECORDS SUMMARY | 2022-05-09 13:40 | XMS_ITS | Encounter Summary ---
:1965 [facility] Address [address], [place] [address] Care Team Providers Name Role Phone DungJose gonzalez DO Primary Care Provider [phone] Reason for Referral Specialty Diagnoses / Procedures Referred By Contact Refer red To Contact Maria E Messina LPN Referral ID Status Reason Start Date Expiration Date Visits Requ ested Visits Authorized Reason for Visit Reason Onset Date Comments Test Results 11/25/2007 Encounter Details Date Type Department Care Team Description 11/25/2007 Telephone [facility] [address] Maria E Messina, Test Results [facility] VIDEO EFFECTS EDITOR [address] [place] [address] Social History Tobacco Use Types [...] rimary documented in this encounter Care Teams Clipper Counters Relationship Specialty Start Date End Date Jose Colin DO PCP - General 12/24/03 09/17/08 [address] [place] [address] documented as of this encounter
--- OUTSIDE RECORDS SUMMARY | 2022-05-09 13:40 | XMS_ITS | Encounter Summary ---
:1965 [facility] Address [address] [place] [address] Care Team Providers Name Role Phone Jose Colin DO Primary Care Provider [phone] Encounter Details Date Type Department Care Team Description 10/23/2007 [facility] Internal Med Laura Martinez [address] [facility] Aleyda, [place] [address] [facility] [phone] [address] [place], [place] [address] (Wo rk) Social History Tobacco Use Types Packs/Day Years Used Date Smoking Tobacco: Never Alcohol Use Standard Drinks/Week Comments Yes 0 (1 standard drink = 0.6 oz pure alcoho l) rarely Sex Assigned at Date Recorded Not on file documented as of this encounter Progress Notes Laura Pedraza, RN - 10/23/2007 1:28 PM CDT See Anticoagulation Flowsheet for details. Laura Puente RN documented in this encounter Plan of Treatment Not on filedocumented as of this encounter Visit Diagnoses Not on filedocumented in this encounter Care Teams Electrical Design Technician Relationship Specialty Start Date End Date Jose Colin, DO PCP - General 12/24/03 09/17/[address] [place] [address] documented as of this encounter
--- OUTSIDE RECORDS SUMMARY | 2022-05-09 13:40 | XMS_ITS | Encounter Summary ---
:1965 Author Organization [facility] Address [address], [place] [address] Care Team Providers Name Role Phone Dungjosé antonioelbaJose medina Primary Care Provider [phone] Reason for Visit Reason Onset Date Comments Return Call 11/29/2007 about further testin g Encounter Details Date Type Department Care Team Description 11/29/2007 Telephone [facility] Sandra Cardenas Call (about [address] [facility] A, RN further testing) [address] [address] [phone] (Wo rk) Social History Tobacco Use Types [...] rimary documented in this encounter Care Teams Bed Manager Relationship Specialty Start Date End Date Jose Colin DO PCP - General 12/24/03 09/17/08 [address] [place] [address] documented as of this encounter
--- OUTSIDE RECORDS SUMMARY | 2022-05-09 13:40 | XMS_ITS | Encounter Summary ---
:1965 Author Organization [facility] Address [address], [place] [address] Care Team Providers Name Role Phone Jose Colin DO Primary Care Provider [phone] Encounter Details Date Type Department Care Team Description 10/08/2007 [facility] Internal Med Laura Martinez [address] [facility], [place] [address] [facility] [phone] [address], [place] [address] (Wo rk) Social History [...] on filedocumented in this encounter Care Teams Valve Seater Operator Relationship Specialty Start Date End Date Jose Colin DO PCP - General 12/24/03 09/17/08 [address] [place] [address] documented as of this encounter
--- OUTSIDE RECORDS SUMMARY | 2022-05-09 13:41 | XMS_ITS | Encounter Summary ---
:1965 Author Organization [facility] Address [address], [place] [address] Care Team Providers Name Role Phone Jose Colin DO Primary Care Provider [phone] Encounter Details Date Type Department Care Team Description 06/12/2007 [facility] Internal Med Thea Carmona RN [address] [place] [address] [address] [phone] [place], [place] [address] Social History Tobacco Use Types [...] filedocumented in this encounter Care Teams Cable Splicer Apprentice Relationship Specialty Start Date End Date Jose Colin DO PCP - General 12/24/03 09/17/08 [address] [place] [address] documented as of this encounter
--- OUTSIDE RECORDS SUMMARY | 2022-05-09 13:41 | XMS_ITS | Encounter Summary ---
:1965 Author Organization [facility] Address [address] [place] [address] Care Team Providers Name Role Phone Jose Colin DO Primary Care Provider [phone] Reason for Visit Reason Onset Date Comments RESULTS, TEST 08/30/2007 Encounter Details Date Type Department Care Team Description 08/30/2007 Telephone [facility] Jose Witt, RESULTS, TEST 205 [place] [address] 966 [facility] [phone] [place] [address] (Wo rk) Social History Tobacco [...] on filedocumented in this encounter Care Teams Toll Test Desk Worker Relationship Specialty Start Date End Date Jose Colin, PCP - General 12/24/03 09/17/08 [address] [place] [address] documented as of this encounter
--- OUTSIDE RECORDS SUMMARY | 2022-05-09 13:41 | XMS_ITS | Encounter Summary ---
:1965 Author Organization [facility] Address [address] [place] [address] Care Team Providers Name Role Phone Jose Colin DO Primary Care Provider [phone] Encounter Details Date Type Department Care Team Description 09/23/2007 Orders Only [facility] DVT (Deep Venous [address] Thrombosis) [place], [place] [id number] Social History Tobacco Use Types Packs/Day Years [...] [facility] 14.5 sec Coumadin Yes [facility] 1[facility]2 [facility] Specimen Anatomical Collection Method Collection Time Receive d Time (Source) Location / / Volume Laterality 09/23/2007 7:32 AM 8 7:35 CDT AM CDT Jose Colin DO LAB_1 Performing Organization Address City/State/ZIP Code Phon e Number [facility] [phone] [facility] [address] [phone] documented in this encounter Visit Diagnoses Diagnosis DVT (deep venous thrombosis) ([facility]) Acute venous embolism and thrombosis of unspecified deep vessels of lower extremity documented in this encounter Care Teams Ironworker Apprentice Relationship Specialty Start Date End Date Jose Colin DO PCP - General 12/24/03 09/17/08 [address] [place] [address] documented as of this encounter
--- OUTSIDE RECORDS SUMMARY | 2022-05-09 13:41 | XMS_ITS | Encounter Summary ---
:1965 Author Organization [facility] Address [address], [place] [address] Care Team Providers Name Role Phone Jose Colin DO Primary Care Provider [phone] Encounter Details Date Type Department Care Team Description 08/12/2007 Orders Only [facility] DVT (Deep Venous [address] Thrombosis) [place], [place] [id number] Social History Tobacco Use Types Packs/Day Years [...] DVT (Deep Venous Resul ts for this FIELD ORGANIZER Thrombosis) procedure are i n the results section . documented in this encounter Results (ABNORMAL) INR/PROTIME (08/12/2007 7:33 AM FIELD ORGANIZER) P athologist Signature Protime 33.3 (H) 12.0 - [facility] 14.5 sec Coumadin Yes [facility] 3[facility]2 [facility] Specimen Anatomical Collection Method Collection Time Receive d Time (Source) Location / / Volume Laterality 08/12/2007 7:33 AM 8 7:35 FIELD ORGANIZER AM FIELD ORGANIZER Jose Colin DO LAB_1 Performing Organization Address City/State/ZIP Code Phon e Number [facility] [phone] [facility] [address] [phone] documented in this encounter Visit Diagnoses Diagnosis DVT (deep venous thrombosis) ([facility]) Acute venous embolism and thrombosis of unspecified deep vessels of lower extremity documented in this encounter Care Teams Domestic Freight Forwarder Relationship Specialty Start Date End Date Jose Colin DO PCP - General 12/24/03 09/17/08 [address] [place] [address] documented as of this encounter
--- OUTSIDE RECORDS SUMMARY | 2022-05-09 13:41 | XMS_ITS | Encounter Summary ---
:1965 Author [facility] Address [address], [place] [address] Care Team Providers Name Role Phone Jose Colin DO Primary Care Provider [phone] Encounter Details Date Type Department Care Team Description 06/10/2007 Orders Only [facility] DVT (Deep Venous [address] Thrombosis) [place], [place] [id number] Social History Tobacco Use Types Packs/Day Years [...] DVT (Deep Venous Resul ts for this FINISHED YARN EXAMINER Thrombosis) procedure are i n the results section . documented in this encounter Results (ABNORMAL) INR/PROTIME (06/10/2007 9:04 AM FINISHED YARN EXAMINER) P athologist Signature Protime 28.8 (H) 12.0 - [facility] 14.5 sec Coumadin Yes [facility]R 2.[address] Specimen Anatomical Collection Method Collection Time Receive d Time (Source) Location / / Volume Laterality 06/10/2007 9:04 AM 7 9:05 FINISHED YARN EXAMINER AM FINISHED YARN EXAMINER Jose Colin DO LAB_1 Performing Organization Address City/State/ZIP Code Phon e Number [facility] [phone] [facility] [address] [phone] documented in this encounter Visit Diagnoses Diagnosis DVT (deep venous thrombosis) ([facility]) Acute venous embolism and thrombosis of unspecified deep vessels of lower extremity documented in this encounter Care Teams Layup Worker Relationship Specialty Start Date End Date Jose Colin DO PCP - General 12/24/03 09/17/08 [address] [place] [address] documented as of this encounter
--- OUTSIDE RECORDS SUMMARY | 2022-05-09 13:41 | XMS_ITS | Encounter Summary ---
:1965 Author Organization [facility] Address [address], [place] [address] Care Team Providers Name Role Phone Jose Colin DO Primary Care Provider [phone] Encounter Details Date Type Department Care Team Description 06/10/2007 [facility] Internal Med Wilda Burton RN [address] [place] [address] [address] [phone] [place], [place] [address] Social History Tobacco Use Types Packs/Day Years Used Date Smoking Tobacco: Never Alcohol Use Standard Drinks/Week Comments Yes 0 (1 standard drink = 0.6 oz pure alcoho l) rarely Sex Assigned at Date Recorded Not on file documented as of this encounter Progress Notes Wilda Anand - 06/10/2007 5:11 PM CST See Anticoagulation Flowsheet for details. Wilda Burch RN VISION ENGINEERING TEACHER documented in this encounter Plan of Treatment Not on filedocumented as of this encounter Visit Diagnoses Not on filedocumented in this encounter Care Teams Director Trust Relationship Specialty Start Date End Date Jose Colin DO PCP - General 12/24/03 09/17/[address] [place] [phone] documented as of this encounter
--- OUTSIDE RECORDS SUMMARY | 2022-05-09 13:41 | XMS_ITS | Encounter Summary ---
:1965 Author Organization [facility] Address [address], [place] [address] Care Team Providers Name Role Phone Jose Colin DO Primary Care Provider [phone] Encounter Details Date Type Department Care Team Description 08/28/2007 Orders Only [facility] Radiology [address] [place], [place] [phone] Social History Tobacco Use Types Packs/Day Years Used Date Smoking Tobacco: Never Alcohol Use Standard Drinks/Week Comments Yes 0 (1 standard drink = 0.6 oz pure alcoho l) rarely Sex Assigned at Date Recorded Not on file documented as of this encounter Plan of Treatment Not on filedocumented as of this encounter Visit Diagnoses Not on filedocumented in this encounter Care Teams Liquefaction And Regasification Helper Relationship Specialty Start Date End Date Jose Colin DO PCP - General 12/24/03 09/17/08 [address] [place] [address] documented as of this encounter
--- OUTSIDE RECORDS SUMMARY | 2022-05-09 13:41 | XMS_ITS | Encounter Summary ---
:1965 Author Organization [facility] Address [address], [place] [address] Care Team Providers Name Role Phone Jose Colin DO Primary Care Provider [phone] Encounter Details Date Type Department Care Team Description 08/26/2007 [facility] Internal Med Wilda Burton RN [address] [place] [address] [address] [phone] [place], [place] [address] Social History Tobacco Use Types [...] on filedocumented in this encounter Care Teams Condominium Manager Relationship Specialty Start Date End Date Jose Colin, PCP - General 12/24/03 09/17/08 [address] [place] [phone] documented as of this encounter
--- OUTSIDE RECORDS SUMMARY | 2022-05-09 13:41 | XMS_ITS | Encounter Summary ---
:1965 Author Organization [facility] Address [address] [address] Care Team Providers Name Role Phone Jose Colin DO Primary Care Provider [phone] Encounter Details Date Type Department Care Team Description 06/17/[address] [facility] DVT (Deep Venous [address] Thrombosis) [place], [place] [id number] Social History Tobacco Use Types Packs/Day Years [...] DVT (Deep Venous Resul ts for this GEOTHERMAL PRODUCTION MANAGER Thrombosis) procedure are i n the results section . documented in this encounter Results (ABNORMAL) INR/PROTIME (06/17/2007 8:01 AM GEOTHERMAL PRODUCTION MANAGER) P athologist Signature Protime 30.0 (H) 12.0 - [facility] 14.5 sec Coumadin Yes [facility] INR 2.8 [facility] Specimen Anatomical Collection Method Collection Time Receive d Time (Source) Location / / Volume Laterality 06/17/2007 8:01 AM 8 8:02 GEOTHERMAL PRODUCTION MANAGER AM GEOTHERMAL PRODUCTION MANAGER Jose Colin DO LAB_1 Performing Organization Address City/State/ZIP Code Phon e Number [facility] [phone] [facility] [address] [address] documented in this encounter Visit Diagnoses Diagnosis DVT (deep venous thrombosis) ([facility]) Acute venous embolism and thrombosis of unspecified deep vessels of lower extremity documented in this encounter Care Teams Stripper And Opaquer Apprentice Relationship Specialty Start Date End Date Jose Colin DO PCP - General 12/24/03 09/17/08 [address] [place] [address] documented as of this encounter
--- OUTSIDE RECORDS SUMMARY | 2022-05-09 13:41 | XMS_ITS | Encounter Summary ---
:1965 Author Organization [facility] Address [address] [address] Care Team Providers Name Role Phone Jose Colin DO Primary Care Provider [phone] Encounter Details Date Type Department Care Team Description 08/26/2007 Orders Only [facility] Internal Med icine Jose Colin, [address] [place] [address] 821 [facility] [phone] [place] [address] (Wo rk) Social History Tobacco [...] on filedocumented in this encounter Care Teams Correction Officer Reformatory Relationship Specialty Start Date End Date Jose Colin DO PCP - General 12/24/03 09/17/08 [address] [place] [address] documented as of this encounter
--- OUTSIDE RECORDS SUMMARY | 2022-05-09 13:41 | XMS_ITS | Encounter Summary ---
:1965 Author [facility] Address [address], [place] [address] Care Team Providers Name Role Phone Jose Colin DO Primary Care Provider [phone] Encounter Details Date Type Department Care Team Description 07/01/2007 Orders Only [facility] DVT (Deep Venous [address] Thrombosis) [place], [place] [id number] Social History Tobacco Use Types Packs/Day Years [...] DVT (Deep Venous Resul ts for this EDI SPECIALIST Thrombosis) procedure are i n the results section . documented in this encounter Results (ABNORMAL) INR/PROTIME (07/01/2007 7:45 AM EDI SPECIALIST) P athologist Signature Protime 31.3 (H) 12.0 - [facility] 14.5 sec Coumadin Yes [facility] INR 2.9 [facility] Specimen Anatomical Collection Method Collection Time Receive d Time (Source) Location / / Volume Laterality 07/01/2007 7:45 AM 8 7:46 EDI SPECIALIST AM EDI SPECIALIST Jose Colin DO LAB_1 Performing Organization Address City/State/ZIP Code Phon e Number [facility] [phone] [facility] [address] [address] documented in this encounter Visit Diagnoses Diagnosis DVT (deep venous thrombosis) ([facility]) Acute venous embolism and thrombosis of unspecified deep vessels of lower extremity documented in this encounter Care Teams Track Laborer Relationship Specialty Start Date End Date Jose Colin DO PCP - General 12/24/03 09/17/08 [address] [place] [address] documented as of this encounter
--- OUTSIDE RECORDS SUMMARY | 2022-05-09 13:41 | XMS_ITS | Encounter Summary ---
:1965 Author Organization [facility] Address [address] [place] [address] Care Team Providers Name Role Phone Jose Colin DO Primary Care Provider [phone] Encounter Details Date Type Department Care Team Description 08/26/2007 Orders Only [facility] DVT (Deep Venous [address] Thrombosis) [place], [place] [id number] Social History Tobacco Use Types Packs/Day Years [...] Number [facility] [phone] [facility] [address] [phone] documented in this encounter Visit Diagnoses Diagnosis DVT (deep venous thrombosis) ([facility]) Acute venous embolism and thrombosis of unspecified deep vessels of lower extremity documented in this encounter Care Teams Gas Meter Mechanic Relationship Specialty Start Date End Date Jose Colin DO PCP - General 12/24/03 09/17/08 [address] [place] [address] documented as of this encounter
--- OUTSIDE RECORDS SUMMARY | 2022-05-09 13:41 | XMS_ITS | Encounter Summary ---
:1965 Author Organization [facility] Address [address], [place] [address] Care Team Providers Name Role Phone Jose Colin DO Primary Care Provider [phone] Encounter Details Date Type Department Care Team Description 09/23/2007 [facility] Internal Med Wilda Burton RN [address] [place] [address] [address] [phone] [place], [place] [address] Social History Tobacco Use Types [...] on filedocumented in this encounter Care Teams Brakeshoe Repairer Relationship Specialty Start Date End Date Jose Colin DO PCP - General 12/24/03 09/17/08 [address] [place] [phone] documented as of this encounter
--- OUTSIDE RECORDS SUMMARY | 2022-05-09 13:41 | XMS_ITS | Encounter Summary ---
:1965 Author Organization [facility] Address [address], [place] [address] Care Team Providers Name Role Phone Jose Colin DO Primary Care Provider [phone] Encounter Details Date Type Department Care Team Description 07/15/2007 [facility] Internal Med Wilda Burton RN [address] [place] [address] [address] [phone] [place], [place] [address] Social History Tobacco Use Types Packs/Day Years Used Date Smoking Tobacco: Never Alcohol Use Standard Drinks/Week Comments Yes 0 (1 standard drink = 0.6 oz pure alcoho l) rarely Sex Assigned at Date Recorded Not on file documented as of this encounter Progress Notes Wilda Anand - 07/15/2007 2:38 PM CST See Anticoagulation Flowsheet for details. Wilda Burch RN PICKER documented in this encounter Plan of Treatment Not on filedocumented as of this encounter Visit Diagnoses Not on filedocumented in this encounter Care Teams Shape Brick Molder Relationship Specialty Start Date End Date Jose Colin DO PCP - General 12/24/03 09/17/[address] [place] [phone] documented as of this encounter
--- OUTSIDE RECORDS SUMMARY | 2022-05-09 13:41 | XMS_ITS | Encounter Summary ---
:1965 Author Organization [facility] Address [address], [place] [address] Care Team Providers Name Role Phone Jose Colin DO Primary Care Provider [phone] Encounter Details Date Type Department Care Team Description 06/17/2007 [facility] Internal Med Wilda Burton RN [address] [place] [address] [address] [phone] [place], [place] [address] Social History Tobacco Use Types Packs/Day Years Used Date Smoking Tobacco: Never Alcohol Use Standard Drinks/Week Comments Yes 0 (1 standard drink = 0.6 oz pure alcoho l) rarely Sex Assigned at Date Recorded Not on file documented as of this encounter Progress Notes Wilda Anand - 06/17/2007 3:51 PM CST See Anticoagulation Flowsheet for details. Wilda Burch RN ICAL LABORATORY MANAGER documented in this encounter Plan of Treatment Not on filedocumented as of this encounter Visit Diagnoses Not on filedocumented in this encounter Care Teams Tester Electronic Scale Relationship Specialty Start Date End Date Jose Colin DO PCP - General 12/24/03 09/17/[address] [place] [phone] documented as of this encounter
--- OUTSIDE RECORDS SUMMARY | 2022-05-09 13:41 | XMS_ITS | Encounter Summary ---
:1965 Author Organization [facility] Address [address], [place] [address] Care Team Providers Name Role Phone Jose Colin DO Primary Care Provider [phone] Encounter Details Date Type Department Care Team Description 07/01/2007 [facility] Internal Med Wilda Burton RN [address] [place] [address] [address] [phone] [place], [place] [address] Social History Tobacco Use Types Packs/Day Years Used Date Smoking Tobacco: Never Alcohol Use Standard Drinks/Week Comments Yes 0 (1 standard drink = 0.6 oz pure alcoho l) rarely Sex Assigned at Date Recorded Not on file documented as of this encounter Progress Notes Wilda Anand - 07/01/2007 4:11 PM CST See Anticoagulation Flowsheet for details. Wilda Burch RN MARSHAL documented in this encounter Plan of Treatment Not on filedocumented as of this encounter Visit Diagnoses Not on filedocumented in this encounter Care Teams Court Transcriber Relationship Specialty Start Date End Date Jose Colin DO PCP - General 12/24/03 09/17/[address] [place] [address] documented as of this encounter
--- OUTSIDE RECORDS SUMMARY | 2022-05-09 13:41 | XMS_ITS | Encounter Summary ---
:1965 Author Organization [facility] Address [address] [address] Care Team Providers Name Role Phone Jose Colin DO Primary Care Provider [phone] Reason for Visit Reason Onset Date Comments Careplan: Anticoagulation 09/24/2007 Encounter Details Date Type Department Care Team Description 09/24/[address] [facility] Dee Colin: [facility] Medicine Jose Allan DO [address] [facility] [address] [place] [address] [place], [place] [phone] [address] Social History Tobacco Use Types Packs/Day [...] on filedocumented in this encounter Care Teams Microsoft Solutions Architect Relationship Specialty Start Date End Date Jose Colin, DO PCP - General 12/24/03 09/17/08 [address] [place] [address] documented as of this encounter
--- OUTSIDE RECORDS SUMMARY | 2022-05-09 13:41 | XMS_ITS | Encounter Summary ---
:1965 Author Organization [facility] [place] [address] Care Team Providers Name Role Phone oJse Colin DO Primary Care Provider [phone] Reason for Referral Specialty Diagnoses / Procedures Referred By Contact Refer red To Contact Jose Colin DO [address] [place], [place] [address] Referral ID Status Reason Start Date Expiration Date Visits Requ ested Visits Authorized Scheduling Instructions If an appointment with [facility] was advised and you have not been contacted to schedule that appointm ent within 3 business days, please call [phone] for assistance. Specialty Diagnoses / Procedures Referred By Contact Nicolas espinoza To Contact Jose Colin DO [address] [place], [place] [phone] Referral ID Status Reason Start Date Expiration Date Visits Requ ested Visits Authorized Reason for Visit Reason Comments HEADACHE,MIGRAINE f/u visit DIFFICULTY SWALLOWING and digestive problems CHEST SYMPTOMS a weight and cold feeling CONSULT about the clot and tx Encounter Details Date Type Department Care Team Description 08/23/2007 Office Visit [facility] Internal [place] DVT (Deep V enous Thrombosis) (Primary Dx); Medicine Jose Allan DO Migraine; [address] [place] [address] 599 [facility] Diarrhea; [place] [address] [facility] [phone] Social History Tobacco Use Types Packs/Day Years [...] thrombosis) ([facility] - [facility] [place] [facility] Acute venous embolism and thrombosis of unspecified deep vessels of lower extremity Migraine Migraine, unspecified, without mention o f intractable migraine without mention of status migrainosus Diarrhea Dysphagia Dysphagia, unspecified documented in this encounter Care Teams Vice President Of Development Relationship Specialty Start Date End Date Jose Colin DO PCP - General 12/24/03 09/17/[address] [place] [address] documented as of this encounter
--- OUTSIDE RECORDS SUMMARY | 2022-05-09 13:42 | XMS_ITS | Encounter Summary ---
:1965 Author Organization [facility] Address [address], [place] [address] Care Team Providers Name Role Phone Jose Colin DO Primary Care Provider [phone] Encounter Details Date Type Department Care Team Description 05/07/2007 [facility] Internal Med Wilda Burton RN [address] [place] [address] [address] [phone] [place], [place] [address] Social History Tobacco Use Types Packs/Day Years Used Date Smoking Tobacco: Never Alcohol Use Standard Drinks/Week Comments Yes 0 (1 standard drink = 0.6 oz pure alcoho l) rarely Sex Assigned at Date Recorded Not on file documented as of this encounter Progress Notes Wilda Anand - 05/07/2007 2:28 PM CST See Anticoagulation Flowsheet for details. Wilda Burch RN DING MAINTENANCE SUPERINTENDENT documented in this encounter Plan of Treatment Not on filedocumented as of this encounter Visit Diagnoses Not on filedocumented in this encounter Care Teams Asphalt Screed Operator Relationship Specialty Start Date End Date Jose Colin DO PCP - General 12/24/03 09/17/[address] [place] [address] documented as of this encounter
--- OUTSIDE RECORDS SUMMARY | 2022-05-09 13:42 | XMS_ITS | Encounter Summary ---
:1965 Author Organization [facility] Address [address] [address] Care Team Providers Name Role Phone Jose Colin DO Primary Care Provider [phone] Encounter Details Date Type Department Care Team Description 05/17/2007 [facility] Internal [facility] Wilda Burton RN [address] [place] [address] [address] [phone] [place], [place] [address] Social History Tobacco Use Types Packs/Day Years Used Date Smoking Tobacco: Never Alcohol Use Standard Drinks/Week Comments Yes 0 (1 standard drink = 0.6 oz pure alcoho l) rarely Sex Assigned at Date Recorded Not on file documented as of this encounter Progress Notes Wilda Anand - 05/17/2007 3:06 PM CST See Anticoagulation Flowsheet for details. Wilda Burch RN TRUCK DRIVER documented in this encounter Plan of Treatment Not on filedocumented as of this encounter Visit Diagnoses Not on filedocumented in this encounter Care Teams Brick Chimney Supervisor Relationship Specialty Start Date End Date Jose Colin DO PCP - General 12/24/03 09/17/[address] [place] [phone] documented as of this encounter
--- OUTSIDE RECORDS SUMMARY | 2022-05-09 13:42 | XMS_ITS | Encounter Summary ---
:1965 Author [facility] Address [address], [place] [address] Care Team Providers Name Role Phone Jose Colin DO Primary Care Provider [phone] Encounter Details Date Type Department Care Team Description 05/06/2007 Orders Only [place] DVT (Deep Venous [address] Thrombosis) [place], [place] [id number] Social History Tobacco Use Types Packs/Day Years [...] DVT (Deep Venous Resul ts for this COMPLEX DIRECTOR Thrombosis) procedure are i n the results section . documented in this encounter Results (ABNORMAL) INR/PROTIME (05/06/2007 8:01 AM COMPLEX DIRECTOR) P athologist Signature Protime 24.2 (H) 12.0 - [facility] 14.5 sec Coumadin Yes [facility]R 2.1 [facility] Specimen Anatomical Collection Method Collection Time Receive d Time (Source) Location / / Volume Laterality 05/06/2007 8:01 AM 7 8:02 COMPLEX DIRECTOR AM COMPLEX DIRECTOR Jose Colin DO LAB_1 Performing Organization Address City/State/ZIP Code Phon e Number [facility] [phone] [facility] [address] [address] documented in this encounter Visit Diagnoses Diagnosis DVT (deep venous thrombosis) ([facility]) Acute venous embolism and thrombosis of unspecified deep vessels of lower extremity documented in this encounter Care Teams Family Services Worker Relationship Specialty Start Date End Date Jose Colin DO PCP - General 12/24/03 09/17/08 [address] [place] [address] documented as of this encounter
--- OUTSIDE RECORDS SUMMARY | 2022-05-09 13:42 | XMS_ITS | Encounter Summary ---
:1965 Author Organization [facility] Address [address], [place] [address] Care Team Providers Name Role Phone Jose Colin DO Primary Care Provider [phone] Encounter Details Date Type Department Care Team Description 05/10/2007 Orders Only [place] [facility] DVT (Deep Venous [address] Thrombosis) [place], [place] [id number] Social History Tobacco Use Types Packs/Day Years [...] DVT (Deep Venous Resul ts for this DRAIN CLEANER Thrombosis) procedure are i n the results section . documented in this encounter Results (ABNORMAL) INR/PROTIME (05/10/2007 8:05 AM DRAIN CLEANER) P athologist Signature Protime 24.7 (H) 12.0 - [facility] 14.5 sec Coumadin Yes [facility] INR 2.2 [facility] Specimen Anatomical Collection Method Collection Time Receive d Time (Source) Location / / Volume Laterality 05/10/2007 8:05 AM 7 8:07 DRAIN CLEANER AM DRAIN CLEANER Jose Colin DO LAB_1 Performing Organization Address City/State/ZIP Code Phon e Number [facility] [phone] [facility] [address] [address] documented in this encounter Visit Diagnoses Diagnosis DVT (deep venous thrombosis) ([facility]) Acute venous embolism and thrombosis of unspecified deep vessels of lower extremity documented in this encounter Care Teams Acquisition Marketing Manager Relationship Specialty Start Date End Date Jsoe Colin DO PCP - General 12/24/03 09/17/08 [address] [place] [address] documented as of this encounter
--- OUTSIDE RECORDS SUMMARY | 2022-05-09 13:42 | XMS_ITS | Encounter Summary ---
:1965 Author Organization [facility] Address [address], [place] [address] Care Team Providers Name Role Phone Jose Colin DO Primary Care Provider [phone] Encounter Details Date Type Department Care Team Description 05/07/2007 Orders Only [place] [facility] DVT (Deep Venous [address] Thrombosis) [place], [place] [id number] Social History Tobacco Use Types Packs/Day Years [...] DVT (Deep Venous Resul ts for this SCREEN OPERATOR Thrombosis) procedure are i n the results section . documented in this encounter Results (ABNORMAL) INR/PROTIME (05/07/2007 8:11 AM SCREEN OPERATOR) P athologist Signature Protime 23.8 (H) 12.0 - [facility] 14.5 sec Coumadin Yes [facility] Specimen Anatomical Collection Method Collection Time Receive d Time (Source) Location / / Volume Laterality 05/07/2007 8:11 AM 7 8:12 SCREEN OPERATOR AM SCREEN OPERATOR Jose Colin DO LAB_1 Performing Organization Address City/State/ZIP Code Phon e Number [facility] [phone] [facility] [address] [address] documented in this encounter Visit Diagnoses Diagnosis DVT (deep venous thrombosis) ([facility]) Acute venous embolism and thrombosis of unspecified deep vessels of lower extremity documented in this encounter Care Teams Second Crusher Relationship Specialty Start Date End Date Jose Colin DO PCP - General 12/24/03 09/17/08 [address] [place] [address] documented as of this encounter
--- OUTSIDE RECORDS SUMMARY | 2022-05-09 13:42 | XMS_ITS | Encounter Summary ---
:1965 Author [facility] Address [address], [place] [address] Care Team Providers Name Role Phone Jose Colin DO Primary Care Provider [phone] Encounter Details Date Type Department Care Team Description 05/20/2007 Orders Only [place] [facility] DVT (Deep Venous [address] Thrombosis) [place], [place] [id number] Social History Tobacco Use Types Packs/Day Years [...] DVT (Deep Venous Resul ts for this FIXED INCOME DIRECTOR Thrombosis) procedure are i n the results section . documented in this encounter Results (ABNORMAL) INR/PROTIME (05/20/2007 8:00 AM FIXED INCOME DIRECTOR) P athologist Signature Protime 22.9 (H) 12.0 - [facility] 14.5 sec Coumadin Yes [facility] Specimen Anatomical Collection Method Collection Time Receive d Time (Source) Location / / Volume Laterality 05/20/2007 8:00 AM 7 8:01 FIXED INCOME DIRECTOR AM FIXED INCOME DIRECTOR Jose Colin DO LAB_1 Performing Organization Address City/State/ZIP Code Phon e Number [facility] [phone] [facility] [address] [address] documented in this encounter Visit Diagnoses Diagnosis DVT (deep venous thrombosis) ([facility]) Acute venous embolism and thrombosis of unspecified deep vessels of lower extremity documented in this encounter Care Teams Character Impersonator Relationship Specialty Start Date End Date Jose Colin DO PCP - General 12/24/03 09/17/08 [address] [place] [address] documented as of this encounter
--- OUTSIDE RECORDS SUMMARY | 2022-05-09 13:42 | XMS_ITS | Encounter Summary ---
:1965 Author Organization [facility] Address [address], [place] [address] Care Team Providers Name Role Phone Jose Colin DO Primary Care Provider [phone] Encounter Details Date Type Department Care Team Description 06/03/2007 Orders Only [place] [facility] DVT (Deep Venous [address] Thrombosis) [place], [place] [id number] Social History Tobacco Use Types Packs/Day Years [...] DVT (Deep Venous Resul ts for this CONSTRUCTION ELECTRICIAN Thrombosis) procedure are i n the results section . documented in this encounter Results (ABNORMAL) INR/PROTIME (06/03/2007 8:53 AM CONSTRUCTION ELECTRICIAN) P athologist Signature Protime 24.7 (H) 12.0 - [facility] 14.5 sec Coumadin Yes [facility]2 [facility] Specimen Anatomical Collection Method Collection Time Receive d Time (Source) Location / / Volume Laterality 06/03/2007 8:53 AM 7 8:54 CONSTRUCTION ELECTRICIAN AM CONSTRUCTION ELECTRICIAN Jose Colin DO LAB_1 Performing Organization Address City/State/ZIP Code Phon e Number [facility] [phone] [facility] [address] [address] documented in this encounter Visit Diagnoses Diagnosis DVT (deep venous thrombosis) ([facility]) Acute venous embolism and thrombosis of unspecified deep vessels of lower extremity documented in this encounter Care Teams Project Manager Process Development Relationship Specialty Start Date End Date Jose Colin DO PCP - General 12/24/03 09/17/08 [address] [place] [address] documented as of this encounter
--- OUTSIDE RECORDS SUMMARY | 2022-05-09 13:42 | XMS_ITS | Encounter Summary ---
:1965 Author Organization [facility] Address [address] [place] [address] Care Team Providers Name Role Phone Jose Colin DO Primary Care Provider [phone] Reason for Visit Reason Onset Date Comments LETTER NEEDED 05/28/2007 Encounter Details Date Type Department Care Team Description 05/28/2007 Telephone [facility] Jose Witt, LETTER NEEDED [address] [place] [address] 332 [facility] [phone] [place] [address] (Wo rk) Social History Tobacco Use Types Packs/Day Years Used Date Smoking Tobacco: Never Alcohol Use Standard Drinks/Week Comments Yes 0 (1 standard drink = 0.6 oz pure alcoho l) rarely Sex Assigned at Date Recorded Not on file documented as of this encounter Nursing Notes Hanna Shin - 05/28/2007 2:46 PM CST 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 DO Dixie 2:02 PM 05/28/2007 CTOR SEARCH Emmie Lake - 05/28/2007 10:10 AM CST Pt needs letter for employer re her having INR tests. Pt needs detailed letter explaining she will have to have lab draws and may be late for work. The letter should explain how it is determined when she needs labs, since it really is not on a regular schedule. CTOR SEARCH documented in this encounter Plan of Treatment Not on filedocumented as of this encounter Visit Diagnoses Not on filedocumented in this encounter Care Teams Application Integrator Relationship Specialty Start Date End Date Jose Colin, PCP - General 12/24/03 09/17/08 [address] [place] [address] documented as of this encounter
--- OUTSIDE RECORDS SUMMARY | 2022-05-09 13:42 | XMS_ITS | Encounter Summary ---
:1965 Author Organization [facility] Address [address] [address] Care Team Providers Name Role Phone Jose Colin DO Primary Care Provider [phone] Encounter Details Date Type Department Care Team Description 05/20/2007 [facility] Internal Med Wilda Burton RN [address] [place] [address] [address] [phone] [place], [place] [address] Social History Tobacco Use Types Packs/Day Years Used Date Smoking Tobacco: Never Alcohol Use Standard Drinks/Week Comments Yes 0 (1 standard drink = 0.6 oz pure alcoho l) rarely Sex Assigned at Date Recorded Not on file documented as of this encounter Progress Notes Wilda Anand - 05/20/2007 3:09 PM CST See Anticoagulation Flowsheet for details. Wilda Burch RN ERCIAL LOAN OFFICER documented in this encounter Plan of Treatment Not on filedocumented as of this encounter Visit Diagnoses Not on filedocumented in this encounter Care Teams Manager Critical Care Relationship Specialty Start Date End Date Jose Colin DO PCP - General 12/24/03 09/17/[address] [place] [phone] documented as of this encounter
--- OUTSIDE RECORDS SUMMARY | 2022-05-09 13:42 | XMS_ITS | Encounter Summary ---
:1965 Author Organization [facility] Address [address], [place] [address] Care Team Providers Name Role Phone Jose Colin DO Primary Care Provider [phone] Encounter Details Date Type Department Care Team Description 05/10/2007 [facility] Internal Med Wilda Burton RN [address] [place] [address] [address] [phone] [place], [place] [address] Social History Tobacco Use Types Packs/Day Years Used Date Smoking Tobacco: Never Alcohol Use Standard Drinks/Week Comments Yes 0 (1 standard drink = 0.6 oz pure alcoho l) rarely Sex Assigned at Date Recorded Not on file documented as of this encounter Progress Notes Wilda Anand - 05/10/2007 3:37 PM CST See Anticoagulation Flowsheet for details. Wilda Burch RN CAL ORDERLY documented in this encounter Plan of Treatment Not on filedocumented as of this encounter Visit Diagnoses Not on filedocumented in this encounter Care Teams Forest Law And Policy Professor Relationship Specialty Start Date End Date Jose Colin DO PCP - General 12/24/03 09/17/[address] [place] [phone] documented as of this encounter
--- OUTSIDE RECORDS SUMMARY | 2022-05-09 13:42 | XMS_ITS | Encounter Summary ---
:1965 Author [facility] Address [address], [place] [address] Care Team Providers Name Role Phone Jose Colin DO Primary Care Provider [phone] Encounter Details Date Type Department Care Team Description 05/17/2007 Orders Only [place] [facility] DVT (Deep Venous [address] Thrombosis) [place], [place] [id number] Social History Tobacco Use Types Packs/Day Years [...] DVT (Deep Venous Resul ts for this BARREL REPAIRER Thrombosis) procedure are i n the results section . documented in this encounter Results (ABNORMAL) INR/PROTIME (05/17/2007 9:00 AM BARREL REPAIRER) P athologist Signature Protime 39.4 (H) 12.0 - [facility] 14.5 sec Coumadin Yes [facility]R 3.9 [facility] Specimen Anatomical Collection Method Collection Time Receive d Time (Source) Location / / Volume Laterality 05/17/2007 9:00 AM 7 9:01 BARREL REPAIRER AM BARREL REPAIRER Jose Colin DO LAB_1 Performing Organization Address City/State/ZIP Code Phon e Number [facility] [phone] [facility] [address] [address] documented in this encounter Visit Diagnoses Diagnosis DVT (deep venous thrombosis) ([facility]) Acute venous embolism and thrombosis of unspecified deep vessels of lower extremity documented in this encounter Care Teams Body Man Relationship Specialty Start Date End Date Jose Colin DO PCP - General 12/24/03 09/17/08 [address] [place] [address] documented as of this encounter
--- OUTSIDE RECORDS SUMMARY | 2022-05-09 13:42 | XMS_ITS | Encounter Summary ---
:1965 Author Organization [facility] Address [address], [place] [address] Care Team Providers Name Role Phone Jose Colin DO Primary Care Provider [phone] Encounter Details Date Type Department Care Team Description 05/29/2007 [facility] Internal Med Wilda Burton RN [address] [place] [address] [address] [phone] [place], [place] [address] Social History Tobacco Use Types Packs/Day Years Used Date Smoking Tobacco: Never Alcohol Use Standard Drinks/Week Comments Yes 0 (1 standard drink = 0.6 oz pure alcoho l) rarely Sex Assigned at Date Recorded Not on file documented as of this encounter Progress Notes Wilda Anand - 05/29/2007 4:11 PM CST See Anticoagulation Flowsheet for details. Wilda Burch RN RY CARE DIRECTOR documented in this encounter Plan of Treatment Not on filedocumented as of this encounter Visit Diagnoses Not on filedocumented in this encounter Care Teams Judicial Law Clerk Relationship Specialty Start Date End Date Jose Colin DO PCP - General 12/24/03 09/17/[address] [place] [phone] documented as of this encounter
--- OUTSIDE RECORDS SUMMARY | 2022-05-09 13:42 | XMS_ITS | Encounter Summary ---
:1965 Author Organization [facility] Address [address], [place] [address] Care Team Providers Name Role Phone Jose Colin DO Primary Care Provider [phone] Encounter Details Date Type Department Care Team Description 06/03/2007 [facility] Internal Med Wilda Burton RN [address] [place] [address] [address] [phone] [place], [place] [address] Social History Tobacco Use Types Packs/Day Years Used Date Smoking Tobacco: Never Alcohol Use Standard Drinks/Week Comments Yes 0 (1 standard drink = 0.6 oz pure alcoho l) rarely Sex Assigned at Date Recorded Not on file documented as of this encounter Progress Notes Wilda Anand - 06/03/2007 2:23 PM CST See Anticoagulation Flowsheet for details. Wilda Burch RN R CHANGES RECORDS CLERK documented in this encounter Plan of Treatment Not on filedocumented as of this encounter Visit Diagnoses Not on filedocumented in this encounter Care Teams Mortgage Or Loan Underwriter Relationship Specialty Start Date End Date Jose Colin DO PCP - General 12/24/03 09/17/[address] [place] [address] documented as of this encounter
--- OUTSIDE RECORDS SUMMARY | 2022-05-09 13:42 | XMS_ITS | Encounter Summary ---
:1965 [address] [facility] Address [address] [address] Care Team Providers Name Role Phone Jose Colin DO Primary Care Provider [phone] Encounter Details Date Type Department Care Team Description 05/23/2007 [facility] Internal Med Wilda Burton RN [address] [place] [address] [address] [phone] [place], [place] [address] Social History Tobacco Use Types Packs/Day Years Used Date Smoking Tobacco: Never Alcohol Use Standard Drinks/Week Comments Yes 0 (1 standard drink = 0.6 oz pure alcoho l) rarely Sex Assigned at Date Recorded Not on file documented as of this encounter Progress Notes Wilda Anand - 05/23/2007 3:08 PM CST See Anticoagulation Flowsheet for details. Wilda Burch RN CYLINDER INSPECTOR documented in this encounter Plan of Treatment Not on filedocumented as of this encounter Visit Diagnoses Not on filedocumented in this encounter Care Teams Director Of Revenue Relationship Specialty Start Date End Date Jose Colin DO PCP - General 12/24/03 09/17/[address] [place] [phone] documented as of this encounter
--- OUTSIDE RECORDS SUMMARY | 2022-05-09 13:42 | XMS_ITS | Encounter Summary ---
:1965 Author Organization [facility] Address [address], [place] [address] Care Team Providers Name Role Phone Jose Colin DO Primary Care Provider [phone] Encounter Details Date Type Department Care Team Description 05/06/2007 [facility] Internal Med Wilda Burton RN [address] [place] [address] [address] [facility] [phone] [place], [place] [address] Social History Tobacco Use Types Packs/Day Years Used Date Smoking Tobacco: Never Alcohol Use Standard Drinks/Week Comments Yes 0 (1 standard drink = 0.6 oz pure alcoho l) rarely Sex Assigned at Date Recorded Not on file documented as of this encounter Progress Notes Wilda Anand - 05/06/2007 3:53 PM CST See Anticoagulation Flowsheet for details. Wilda Burch RN WICH MACHINE OPERATOR documented in this encounter Plan of Treatment Not on filedocumented as of this encounter Visit Diagnoses Not on filedocumented in this encounter Care Teams Dropper Tank Storage Relationship Specialty Start Date End Date Jose Colin DO PCP - General 12/24/03 09/17/[address] [place] [phone] documented as of this encounter
--- OUTSIDE RECORDS SUMMARY | 2022-05-09 13:42 | XMS_ITS | Encounter Summary ---
:1965 Author Organization [facility] Address [address] [address] Care Team Providers Name Role Phone Jose Colin DO Primary Care Provider [phone] Reason for Visit Reason Onset Date Comments Careplan: Anticoagulation 05/30/2007 Encounter Details Date Type Department Care Team Description 05/30/[address] [facility] Stephanie Colinplan: [facility] Jose Allan DO [address] [facility] [address] [place] [address] [place], [place] [phone] [address] Social History Tobacco Use Types Packs/Day Years Used Date Smoking Tobacco: Never Alcohol Use Standard Drinks/Week Comments Yes 0 (1 standard drink = 0.6 oz pure alcoho l) rarely Sex Assigned at Date Recorded Not on file documented as of this encounter Nursing Notes Wilda Anand - 05/30/2007 4:51 PM CST See Anticoagulation Flowsheet for details. Wilda Burch, RN ME TAX CONSULTANT Emmie Lake - 05/30/2007 4:42 PM CST Pt calling for INR result. ME TAX CONSULTANT documented in this encounter Plan of Treatment Not on filedocumented as of this encounter Visit Diagnoses Not on filedocumented in this encounter Care Teams Vinegar Maker Relationship Specialty Start Date End Date Jose Colin, DO PCP - General 12/24/03 09/17/08 [address] [place] [address] documented as of this encounter
--- OUTSIDE RECORDS SUMMARY | 2022-05-09 13:42 | XMS_ITS | Encounter Summary ---
:1965 Author Organization [facility] Address [address], [place] [address] Care Team Providers Name Role Phone Jose Colin DO Primary Care Provider [phone] Encounter Details Date Type Department Care Team Description 05/30/2007 [facility] Internal Med Wilda Burton RN [address] [place] [address] [address] [phone] [place], [place] [address] Social History Tobacco Use Types Packs/Day Years Used Date Smoking Tobacco: Never Alcohol Use Standard Drinks/Week Comments Yes 0 (1 standard drink = 0.6 oz pure alcoho l) rarely Sex Assigned at Date Recorded Not on file documented as of this encounter Progress Notes Wilda Anand - 05/30/2007 4:51 PM CST See Anticoagulation Flowsheet for details. Wilda Burch RN CLERK documented in this encounter Plan of Treatment Not on filedocumented as of this encounter Visit Diagnoses Not on filedocumented in this encounter Care Teams Shop Welder Relationship Specialty Start Date End Date Jose Colin DO PCP - General 12/24/03 09/17/[address] [place] [phone] documented as of this encounter
--- OUTSIDE RECORDS SUMMARY | 2022-05-09 13:43 | XMS_ITS | Encounter Summary ---
:1965 Author Organization [facility] Address [address] [address] Care Team Providers Name Role Phone Jose Colin DO Primary Care Provider [phone] Reason for Visit Reason Comments EXAM,PRE-OP @ [facility] 04/15/[address] Tobi lehman S1 joint Fusion Encounter Details Date Type Department Care Team Description 04/10/2007 Office Visit [facility] Dusty Flores Preoperati ve Clement Huang MD Examination (Primary [address] [facility] Dx) [place] [address] PRACTICE [phone] [place] [id number] Social History Tobacco Use Types Packs/Day Years [...] 4:50 PM CDT Megan Choi, medical record [id number], is a 42 yr year old female who is here for presurgical assessment. She is scheduled for surgery at [facility] on 04/15/[address] Kirkland. HPI: Low [...] GHP QTc 430 ms MUSE GHP P Ida 44 degrees MUSE GHP R Ida -18 degrees MUSE GHP T Ida 43 degrees MUSE GHP URL Link MUSE [...] e Number MUSE G[facility] [address] [place] [address] MUSE [facility] [address] [place] [address] HEMOGRAM/PLTS (04/10/2007 4:01 PM CDT) P athologist Signature WBC 10.0 4.0 - 11.0 [facility] k/ul RBC 4.46 4.0 - 5.2 [facility] M/ul Hemoglobin 13.7 12.0 - 16.0 [facility] g/dl HCT 40.1 36.0 - 46.0 [facility] % MCV 90.0 80 - 100 fl [facility] MCH 30.8 26 - 34 pg [facility] MCHC 34.2 32 - 36 % [facility] RDW 12.6 11.5 - 14.5 [facility] % Platelets 244 150 - 450 [facility] k/ul Specimen Anatomical Collection Method Collection Time Receive d Time (Source) Location / / Volume Laterality 04/10/2007 4:01 PM 7 4:02 CDT PM CDT Dusty Flores MD LAB_1 Performing Organization Address City/State/ZIP Code Phon e Number [facility] [phone] [address] documented in this encounter Visit Diagnoses Diagnosis Preoperative examination - Primary Preoperative examination, unspecified documented in this encounter Care Teams Assembler Faucets Relationship Specialty Start Date End Date Jose Colin DO PCP - General 12/24/03 09/17/08 [address] [place] [address] documented as of this encounter
--- OUTSIDE RECORDS SUMMARY | 2022-05-09 13:43 | XMS_ITS | Encounter Summary ---
:1965 Author Organization [facility] Address [address], [place] [address] Care Team Providers Name Role Phone Jose Colin DO Primary Care Provider [phone] Reason for Visit Reason Comments ERRONEOUS ENTRY Encounter Details Date Type Department Care Team Description 05/03/2007 [facility] Wilda Burton RN ERRONEOUS ENTRY [address] [place] [address] [address] [phone] [place], [place] [address] Social History Tobacco Use Types [...] on filedocumented in this encounter Care Teams Educational Director Relationship Specialty Start Date End Date Jose Colin DO PCP - General 12/24/03 09/17/[address] [place] [id number] documented as of this encounter
--- OUTSIDE RECORDS SUMMARY | 2022-05-09 13:43 | XMS_ITS | Encounter Summary ---
:1965 [facility] Address [address] [place] [address] Care Team Providers Name Role Phone Jose Stack DO Primary Care Provider [phone] Reason for Visit Reason Onset Date Comments Refill 03/28/2007 Encounter Details Date Type Department Care Team Description 03/28/2007 Refill [facility] Jose Stack, Refill [address] [facility] [address] [place] [address] [place], [place] [phone] (Wo rk) Social History Tobacco Use [...] reflux documented in this encounter Care Teams Marketing Operations Consultant Relationship Specialty Start Date End Date Jose Stack DO PCP - General 12/24/03 09/17/08 [address] [place] [id number] documented as of this encounter
--- OUTSIDE RECORDS SUMMARY | 2022-05-09 13:43 | XMS_ITS | Encounter Summary ---
:1965 Author Organization [facility] Address [address] [address] Care Team Providers Name Role Phone Jose Colin DO Primary Care Provider [phone] Encounter Details Date Type Department Care Team Description 02/24/2006 Outside Hospital External to [facility] DISCHARGE SUMMARY/[facility] Social History Tobacco Use Types Packs/Day Years Used Date Smoking Tobacco: Never Alcohol Use Standard Drinks/Week Comments Yes 0 (1 standard drink = 0.6 oz pure alcoho l) rarely Sex Assigned at Date Recorded Not on file documented as of this encounter Progress Notes [facility], PROVIDER - 02/24/2006 12:00 AM CDT documented in this encounter Plan of Treatment Not on filedocumented as of this encounter Visit Diagnoses Not on filedocumented in this encounter Care Teams Pants Cutter Relationship Specialty Start Date End Date Jose Colin DO PCP - General 12/24/03 09/17/08 [address] [place] [address] documented as of this encounter
--- OUTSIDE RECORDS SUMMARY | 2022-05-09 13:43 | XMS_ITS | Encounter Summary ---
:1965 Author Organization [facility] Address [address], [place] [address] Care Team Providers Name Role Phone Dungjosé antonioelbaJose medina Edilia DO Primary Care Provider [phone] Encounter Details Date Type Department Care Team Description 04/15/2007 - Hospital Encounter RH C91 Zachary Kirkland MD 04/19/[address] [place] [address] [place], [place] [phone] [id number] Social History Tobacco Use Types Packs/Day Years Used Date Smoking Tobacco: Never Alcohol Use Standard Drinks/Week Comments Yes 0 (1 standard drink = 0.6 oz pure alcoho l) rarely Sex Assigned at Date Recorded Not on file documented as of this encounter Last Filed Vital Signs Vital Sign Reading Time Taken Comments Blood Pressure 105/50 04/19/2007 7:15 AM RN FIELD CASE MANAGER Pulse 92 04/19/2007 7:15 AM RN FIELD CASE MANAGER Temperature 37.2 ??C (98.9 ??F) 04/19/2007 7:15 AM RN FIELD CASE MANAGER Respiratory Rate 16 04/19/2007 7:15 AM RN FIELD CASE MANAGER Oxygen Saturation 96% 04/19/2007 7:15 AM RN FIELD CASE MANAGER Inhaled Oxygen Concentration - - Weight 89.4 kg (197 lb) 04/15/2007 6:07 AM RN FIELD CASE MANAGER Height 160 cm (5' 3) 04/15/2007 6:07 AM RN FIELD CASE MANAGER Body Mass Index 34.9 04/15/2007 6:07 AM RN FIELD CASE MANAGER documented in this encounter Discharge Summaries Zachary Kirkland - 05/15/2007 9:55 AM RN FIELD CASE MANAGER ADMIT DATE: 04/15/2007 DISCHARGE DATE: 04/19/2007 FINAL [...] for anticoagulation prophylaxis. Zachary Kirkland MD [facility] Dictated: 05/15/2007 09:55:58 Transcribed: 05/16/2007 10:31:51 Doc #: [id number] cc:Zachary Kirkland MD, Referring Physician Jose Colin DO, Primary Physician 1 Page 1 Patient Name: MEGAN WONG DISCHARGE SUMMARY CONFIDENTIAL MEDICAL RECORD [address] [id number] Page 1 Patient: MEGAN WONG Location: HPN: [id number] Admit Date: 04/15/2007 Date of : 1965 Discharge Date: 04/19/2007 Age: 42Y DISCHARGE SUMMARY FIELD CASE MANAGER documented in this encounter Discharge Instructions Discharge InstructionsAmanda aLwrence - 04/19/2007 6:43 PM RN FIELD CASE MANAGER ` Discharge Instructions for: Megan Wong Thank you for choosing [facility] as your hospital. Please read the following instructions carefully. The staff will go over this information with you and answer your questions. General Information Allergies: Erythromycin Immunization: Most Recent Immunizations Name Date(s) Administered * Td, Preservative Free 06/16/2005 Phone number: [phone] (home) [phone] (work) Discharging physician: RICHARD Discharge date: 04/19/07 [...] the anticoagulation order. Contact information (name/clinic/phone number): [phone] When to Resume Normal Activities: Order Comments: [...] been sent to the following clinic:{[facility] FAX DESTINATION:[id number]} Home Care Instructions Patient Teaching Handouts INCISION [...] and/or chills Community Resources NONE Contact Information [address] [address] For questions about your discharge instructions call the nursing unit : Emergency & Urgently Needed Care: For emergencies call 911 and/or get medical help right away. If you are a [facility] member and have medical needs after clinic hours you may call the CareLine at [phone] or . Smoking and second-hand smoke exposure: Smoking damages blood vessels, reduces the oxygen in your blood and makes your heart beat too fast.If you smoke you should quit. Everyone should avoid second- hand smoke. If you would like further assistance after your discharge, please contact [phone]- [phone] or visit [email or web address] can offer further information and assistance. You will receive a patient satisfaction survey either at the time of discharge or by mail in about two weeks. We want to hear about your stay at [facility]. Please help us improve by telling us about your experience . When leaving your room at discharge, please stop at the nursing unit desk to check out. I understand my discharge instructions: Megan Wong (or Executive Officer) FIELD CASE MANAGER documented in this encounter Medications at [...] Ant Thomas - 04/19/2007 6:27 PM CST [facility] Discharge Note - Nursing Patient Name: Megan Wogn Date of : 1965 Admission Date/Time: 04/15/2007 [...] by: Robert Pelaez RN ---End of Report--- FIELD CASE MANAGER Maria E Galindo - 04/19/2007 2:25 PM CST I have evaluated this patient and reviewed all related documentation. Maria E Galindo RN 04/19/2007 2:35 PM FIELD CASE MANAGER Lane Gilliland - 04/19/2007 1:56 AM CST [facility] Progress Note (Nursing) Patient Name: [...] movement Lane Ballesteros, ---End of Report --- FIELD CASE MANAGER Patti Lynch - 04/18/2007 10:57 PM CST [facility] Progress Note (Nursing) Patient Name: [...] Patti Bahena RN ---End of Report --- FIELD CASE MANAGER Jessica Romero - 04/18/2007 4:13 PM CST [facility] PT Progress Note Patient Name: [...] Rosalia Sotelo - 04/18/2007 2:03 PM CST [facility] Progress Note (Nursing) Patient Name: [...] Rosalia Schafer LPN ---End of Report --- FIELD CASE MANAGER Sloane Harvey - 04/18/2007 2:03 PM CST PT HAS BEEN ASSESSED,AGREE WITH NOTE AND PLAN OF CARE. FIELD CASE MANAGER Jessica Romero - 04/18/2007 12:57 PM CST [facility] PT Progress Note Patient Name: [...] stairs upon d/c initially. Jessica Romero, PT FIELD CASE MANAGER Rosina Morgan - 04/18/2007 11:44 AM CST [facility] Occupational Therapy Progress Note Patient Name: Megan [...] minutes MIGUEL Holcomb/Marcos (pager) OT Dept #: [phone] - OT Weekend Pager #: [phone] - [facility] Main #: [phone] FIELD CASE MANAGER Irene Mascorro - 04/18/2007 9:15 AM CST [facility] Progress Note () Patient Name: Megan Wong Date of : 1965 Date of service: 04/18/07 Diagnosis: Sacroiliac fusion, fever, abdominal pain, prior lumbar fusion Admit Date/Time: 04/15/2007 5:32 AM Attending Prov: Zachray Kirkland Patient Service: Orthopedics Subjective: Patient feeling much better. CUSTOMER EXPERT stopped yesterday. Ambulating. Still has LLQ pain [...] 9:22 AM --- End of Report --- FIELD CASE MANAGER Hannah Borrego - 04/18/2007 2:36 AM CST [facility] Progress Note (Nursing) Patient Name: [...] Taniya Hanley - 04/17/2007 9:31 PM CST [facility] Progress Note (Nursing) Patient Name: [...] fax to [facility]/ care coordinated with [facility] on duty. Refused flu vaccine and MOM ordered. Afebrile the whole shift. With pending blood cultures x 2 sites today and cxray results..IS at max volume when able. Plan: Monitor for comfort Continue cares Taniya Brewster RN ---End of Report --- FIELD CASE MANAGER Zachary Kirkland - 04/17/2007 6:43 PM CST Post op day two. Alert, CMS intact, Reasonable comfort Progressing in PT No complication Zachary Kirkland MD FIELD CASE MANAGER Sena Zamarripa - 04/17/2007 3:27 PM CST [...] bowel sounds present. No tenderness and distension. RISK MANAGEMENT MANAGER Alert and oriented. Extremeties: No pitting edema, [...] 1 Tab Oral TID ??? HYDROmorphone (DILAUDID) CUSTOMER EXPERT 10 mg in NS 50 mL IV [...] fusion 4) Post-op pain control - dilaudid CUSTOMER EXPERT To continue IVF. Sena Zamarripa MD 04/17/2007, 3:32 PM [phone] Date of Service: 04/17/2007 Report completed by: Sena Zamarripa MD ([facility]) at 3:27 PM on 04/17/2007 FIELD CASE MANAGER Jessica Romero - 04/17/2007 2:55 PM CST [facility] PT Progress Note Patient Name: [...] bid in dept tomorrow. Jessica Romero, PT FIELD CASE MANAGER Iván Shin - 04/17/2007 11:56 AM CST [facility] Progress Note (Nursing) Patient Name: [...] much as possible, enc po fliuds. Iván Shin, RN ---End of Report --- FIELD CASE MANAGER Kia Infante - 04/17/2007 11:39 AM CST [facility] Care Management Parcel Post Officer Initial Assessment Name: Megan Wong Admission Date/Time: 04/15/2007 5:32 AM Attending MD: Zachary Kirkland DATA Megan Wong was referred to this Parcel Post Officer for discharge planning. Chart reviewed, discussed with interdisciplinary team, as well as with patient and family. Megan Wong was admitted to for a L SI fusion Insurance: Payor: [employer] S[employer] [id number] Plan: [employer]URED Product Type: *No [...] with her and two dtrs in a [facility] in [place]. There are 3 steps with a railing [...] completed by Kia Infante RN, Pager Number [phone] Christy Pepper - 04/17/2007 1:31 AM CST [facility] Progress Note (Nursing) Patient Name: [...] Sandra Cabrera - 04/16/2007 9:35 PM CST [facility] Progress Note (Nursing) Patient Name: [...] 2500 cc of urine output via emery,dialudid CUSTOMER EXPERT discontinued and pt started on oral meds, notified regarding pt status and request for oycontin,pt bathed and repostitioned. Plan: Continue to monitor, turn Q2 hours, reassess need for emery in am, encourage IS. Sandra Blackmon RN ---End of Report --- FIELD CASE MANAGER Irene Mascorro - 04/16/2007 6:00 PM CST [facility] Progress Note (MD) Patient Name: [...] pyelonephritis. Incision pain okay, but on dilaudid CUSTOMER EXPERT. Occasionally desats due to sleepiness, but sats [...] 1 Tab Oral TID ??? HYDROmorphone (DILAUDID) CUSTOMER EXPERT 10 mg in NS 50 mL IV [...] NS 7) Post-op pain control - dilaudid CUSTOMER EXPERT Total time for chart review, exam and interview, following up on labs and ultimately reviewing AXR 35 minutes, coordination of care > 50%. Report Completed by: Ierne Mascorro MD --- End of Report --- FIELD CASE MANAGER Leanna French - 04/16/2007 2:14 PM CST [facility] Progress Note (Nursing) Patient Name: Megan Wong Date of : 1965 Identify/Problem(s): GENERAL STATU. Desired Outcome(s): Will be stabilized. Evaluation: Pt oriented but quite sleepy. On alumni relations officer dilaudid with adequate pain control. C/o nausea, received prn zofran with relief. Incision to lower back is intact with some shadowing. Cms to LE intact. Vss exceptfor temp of 99.5 and 100.9 at 0800 and noon respectively. Lungs clear, encouraged IS usage. MD updated. Plan: Cont to monitor, assess and medicate as indicated. Leanna Perales Mba, RN ---End of Report --- FIELD CASE MANAGER Rosina Morgan - 04/16/2007 1:02 PM CST [facility] Occupational Therapy The patient is scheduled to be seen by OT. MIGUEL Holcomb/Marcos (pager) OT Dept #: [phone] - OT Weekend Pager #: [phone] - [facility] Main #: [phone] Gavin Ortiz - 04/16/2007 10:25 AM CST [facility] Clinical Pharmacy Medication Reconciliation Note Patient Name: Megan Wong Date of : 1965 Medications Reviewed and Reconciled: Any medication adjustments made from patient's medication history regimen are appropriate for current hospitalization and medical condition. PHARMACIST NAME: Gavin Sanchez Phone/Pager #: [phone] -- End of Report -- Huseyin Dey - 04/16/2007 7:59 AM CST [facility] Progress Note (Nursing) Patient Name: Megan Wong Date of : 1965 Identify/Problem(s): pain Desired Outcome(s): Will have maximum Evaluation: Pt neuro intact, lower back incision d/i with small shadow, takes I.S to 1250, got 50mg of atarax for muscle pain with relief, repositioned often on this shift. BP improved. Used 4.73 mg of dilaudid CUSTOMER EXPERT-- new syringe placed at 0800. Presently lying down in bed without problem. Plan: Will continue to monitor Huseyin Miguel RN ---End of Report --- Zachary Porter - 04/16/2007 7:53 AM CST Post op day one Alert, CMS intact Reasonable comfort. No complication evident P: per protocol PT Zachary Kirkland MD Sandra Cabrera - 04/15/2007 11:57 PM CST [facility] Progress Note (Nursing) Patient Name: [...] of shadowing noted, pain controlled with dilaudid CUSTOMER EXPERT (14.9 mg of dilauid used) and atarax, emery patent with good amount of output, plexipulses on BLE. Plan: Continue to monitor. Sandra Blackmon RN ---End of Report --- Iván Pinto - 04/15/2007 1:30 PM CST [facility] Nursing Post-Op Note Patient Name: Megan Wong Date of : 1965 Admission Date/Time: 04/15/2007 5:32 AM Returned to: 9E on (date) 04/15/07 at (time) 1230 from P.A.R. Transported by: Litter/cart Medical devices present on return from O.R.: IV General condition on return from O.R.: fair Report Completed by: Iván Shin RN ---End of Report--- FIELD CASE MANAGER Zachary Kirkland - 04/15/2007 8:03 AM CST Post op note Left SI fusion for sacralgia No complications EBL 100 cc Plan per orders, CUSTOMER EXPERT, PT home in 2-3 days Zachary Kirkland MD FIELD CASE MANAGER documented in this encounter Procedure Notes Zachary [...] was prepped and draped prone on a 4-rn first assist. A longitudinal incision was made under x-ray [...] touch weight-bearing for 6 weeks, Lovenox and CUSTOMER EXPERT Dilaudid, home in 2-3 days. Zachary Kirkland MD mjb Dictated: 04/15/2007 11:00:01 Transcribed: 04/15/2007 11:53:11 Doc #: [id number] cc:Zachary Kirkland MD, Referring Physician Jose Colin DO, Primary Physician DO NOT SIGN UNLESS PRESENT FOR PROCEDURE I attest that I was present for and participated in the ma portions of this procedure(s) in compliance with the Health Care Financing Administration Teaching Physician Guidelines. Signed Date Regions Staff Physician 1 Page 2 Patient Name: MEGAN WONG OPERATIVE REPORT CONFIDENTIAL MEDICAL RECORD [address] [address] Page 1 Patient: MEGAN WONG Location: OR N: [id number] Admit Date: 04/15/2007 Date of : 1965 Discharge Date: Age: 42Y OPERATIVE REPORT FIELD CASE MANAGER documented in this encounter Plan of Treatment Not on filedocumented as of this encounter Procedures Procedure Name Priority Date/Time Associated Comments Diagnosis COMPLETE BLOOD Routine 04/18/2007 6:25 AM Results for this COUNT-NO DIFF RN FIELD CASE MANAGER procedure are in the results section. BLOOD CULTURE SITE 2 Routine 04/17/2007 6:15 PM R esults for this RN FIELD CASE MANAGER procedure are i n the results section. BLOOD CULTURE Routine 04/17/2007 5:50 PM Results for this RN FIELD CASE MANAGER procedure are i n the results section. CHEST PA/LATERAL Routine 04/17/2007 3:51 PM Resul ts for this RN FIELD CASE MANAGER procedure are i n the results section. BASIC METABOLIC PANEL Routine 04/17/2007 7:10 AM Results for this RN FIELD CASE MANAGER procedure are i n the results section. COMPLETE BLOOD Routine 04/17/2007 7:10 AM Results for this COUNT-NO DIFF RN FIELD CASE MANAGER procedure are in the results section. URINE CULTURE Routine 04/16/2007 8:45 PM Results for this RN FIELD CASE MANAGER procedure are i n the results section. UA CONDITIONAL UC Routine 04/16/2007 8:45 PM Resu lts for this RN FIELD CASE MANAGER procedure are i n the results section. BLOOD CULTURE SITE 2 Routine 04/16/2007 8:00 PM R esults for this RN FIELD CASE MANAGER procedure are i n the results section. GOLD HOLD TUBE (OR Routine 04/16/2007 8:00 PM Res ults for this RED/LOPEZ) RN FIELD CASE MANAGER procedure are i n the results section. BLOOD CULTURE Routine 04/16/2007 8:00 PM Results for this RN FIELD CASE MANAGER procedure are i n the results section. BASIC METABOLIC PANEL Routine 04/16/2007 8:00 PM Results for this RN FIELD CASE MANAGER procedure are i n the results section. BILIRUBIN, TOTAL & Routine 04/16/2007 8:00 PM Res ults for this DIRECT RN FIELD CASE MANAGER procedure are i n the results section. COMPLETE BLOOD Routine 04/16/2007 8:00 PM Results for this COUNT-NO DIFF RN FIELD CASE MANAGER procedure are in the results section. ALT (SGPT) Routine 04/16/2007 8:00 PM Results f or this RN FIELD CASE MANAGER procedure are i n the results section. AST Routine 04/16/2007 8:00 PM Results f or this RN FIELD CASE MANAGER procedure are i n the results section. ALKALINE PHOSPHATASE, Routine 04/16/2007 8:00 PM Results for this TOTAL RN FIELD CASE MANAGER procedure are i n the results section. CT PELVIS WITHOUT IV Routine 04/16/2007 10:40 Res ults for this CONTRAST AM RN FIELD CASE MANAGER procedure are i n the results section. AP PELVIS Routine 04/15/2007 10:50 Results for this AM RN FIELD CASE MANAGER procedure are i n the results section. FUSION SACRAL ILIAC AM Admit 04/15/2007 7:50 AM SI PAIN RN FIELD CASE MANAGER Case Notes PROC: LEFT SI FUSION ABO RH & ANTIBODY SCREEN STAT 04/15/2007 6:50 AM RN FIELD CASE MANAGER Results for this procedure (TYPE & SCREEN) are in the r esults section. documented in this encounter Results (ABNORMAL) HEMOGRAM/PLTS (04/18/2007 6:25 AM RN FIELD CASE MANAGER) P athologist Signature WBC 10.3 4.0 - [...] Volume Laterality 04/18/2007 6:25 AM 7 6:36 RN FIELD CASE MANAGER AM RN FIELD CASE MANAGER Eddiedaedilia Zamarripa MD LAB_1 Performing Organization Address City/State/ZIP Code Phon e Number [address] [address] [place], [place] [phone] BLOOD CULTURE SITE 2 (04/17/2007 6:15 PM RN FIELD CASE MANAGER) Component Value Ref Test Analysis Performed At Patholo gist Range Method Time Signature Specimen Blood REGIONS Description VENIPUNCTURE Special Site 2 REGIONS Requests Venipuncture Culture No Growth After REGIONS 6 Days Report Status Final 04/23/2007 REGIONS Specimen Anatomical Location Collection Method Collection Time Received Time (Source) / Laterality / Volume Blood specimen VENIPUNCTURE / 04/17/2007 6:15 04/17/20 07 8:14 (specimen) Unknown PM RN FIELD CASE MANAGER PM RN FIELD CASE MANAGER Sena Zamarripa MD LAB_1 Performing Organization Address City/[facility]/ZIP [facility] Phon e Number [address] [address] [place], [place] [phone] BLOOD CULTURE SITE 1 (04/17/2007 5:50 PM RN FIELD CASE MANAGER) [facility] gist Method Time Signature Specimen Blood AT IV REGIONS Description INSERTION Special Site 1 At IV REGIONS Requests Insertion Culture No Growth REGIONS After 6 Days Report Status Final REGIONS 04/23/2007 Specimen Anatomical Collection Method Collection Time Receive d Time (Source) Location / / Volume Laterality Blood specimen 04/17/2007 5:50 PM 007 6:25 (specimen) (At RN FIELD CASE MANAGER PM RN FIELD CASE MANAGER IV Insertion) Sena Zamarripa MD LAB_1 Performing Organization Address City/[facility] Phon e Number [address] [address] [place], [place] [phone] CHEST PA/LATERAL (04/17/2007 3:51 PM RN FIELD CASE MANAGER) Anatomical Region Laterality Modality Other Specimen (Source) Anatomical Collection Method Collection Time Re ceived Time Location / / Volume Laterality 04/17/2007 3:51 PM RN FIELD CASE MANAGER Narrative 04/19/2007 1:34 PM RN FIELD CASE MANAGER pneumonia: FEVER . CHEST 2 VIEWS 04/17/07 INDICATION: ??Fever and pneumonia. COMPARISON: ??None. FINDINGS: ??No infiltrates. ??Heart norm al size allowing for technique. Post-op change lower cervical spine. Sena Zamarripa MD RAD GENERAL DIAGNOSTIC/RH (ABNORMAL) BASIC METABOLIC PANEL (04/17/2007 7:10 AM RN FIELD CASE MANAGER) athologist Signature BUN 5 (L) 10 - [...] Volume Laterality 04/17/2007 7:10 AM 7 7:30 RN FIELD CASE MANAGER AM RN FIELD CASE MANAGER Irene Mascorro MD LAB_1 Performing Organization Address City/[facility] Phon e Number [address] [address] [place], [place] [phone] (ABNORMAL) HEMOGRAM/PLTS (04/17/2007 7:10 AM RN FIELD CASE MANAGER) [facility] WBC 11.0 4.0 - [...] Volume Laterality 04/17/2007 7:10 AM 7 7:30 RN FIELD CASE MANAGER AM RN FIELD CASE MANAGER Irene Mascorro MD LAB_1 Performing Organization Address City/[facility] Phon e Number [address] [address] [place], [place] [phone] URINE CULTURE (04/16/2007 8:45 PM RN FIELD CASE MANAGER) [facility] C2cube Method Time Signature Specimen Urine REGIONS Description Special Unspecified REGIONS Requests Culture No Growth After REGIONS 2 Days Report Status Final REGIONS 04/18/2007 Specimen Anatomical Collection Method Collection Time Receive d Time (Source) Location / / Volume Laterality 04/16/2007 8:45 PM 200 7 9:17 RN FIELD CASE MANAGER PM RN FIELD CASE MANAGER Zachary Kirkland MD LAB_1 Performing Organization Address [facility] Phon e Number [address] [address] [place], [place] [phone] (ABNORMAL) UA CONDITIONAL UC (04/16/2007 8:45 PM RN FIELD CASE MANAGER) [facility] Signature Urine Color None REGIONS Urine Clarity Clear REGIONS Specific 1.001 (L) 1.005 - REGIONS [place] 1.03 pH, Urine 5.5 4.5 - 8.0 [...] specimen 04/16/2007 8:45 PM 007 9:00 (specimen) RN FIELD CASE MANAGER PM RN FIELD CASE MANAGER Irene Mascorro MD LAB_1 Performing Organization Address [facility] Phon e Number [address] [address] [place], [place] [phone] GOLD HOLD TUBE (OR RED/LOPEZ) (04/16/2007 8:00 PM RN FIELD CASE MANAGER) [facility] gist Method Time Signature Gold Hold Held in [facility] Tube Chemistry sample rack for 7 days Specimen Anatomical Collection Method Collection Time Receive d Time (Source) Location / / Volume Laterality 04/16/2007 8:00 PM 7 8:21 RN FIELD CASE MANAGER PM RN FIELD CASE MANAGER Irene Mascorro MD LAB_1 Performing Organization Address [facility]/ZIP [facility] Phon e Number [address] [address] [place], [place] [phone] BILIRUBIN, TOTAL & DIRECT (04/16/2007 8:00 PM RN FIELD CASE MANAGER) athologist Signature Bilirubin, 0.8 0.2 - 1.2 REGIONS Total mg/dl Bilirubin, 0.2 0.1 - 0.4 REGIONS Direct mg/dl Specimen Anatomical Collection Method Collection Time Receive d Time (Source) Location / / Volume Laterality 04/16/2007 8:00 PM 7 8:21 RN FIELD CASE MANAGER PM RN FIELD CASE MANAGER Irene Mascorro MD LAB_1 Performing Organization Address City/[facility]/ZIP Code Phon e Number [address] [address] [place], [place] [phone] ALKALINE PHOSPHATASE, TOTAL (04/16/2007 8:00 PM RN FIELD CASE MANAGER) athologist Signature Alkaline 77 34 - 104 REGIONS Phosphatase U/L Specimen Anatomical Collection Method Collection Time Receive d Time (Source) Location / / Volume Laterality 04/16/2007 8:00 PM 7 8:21 RN FIELD CASE MANAGER PM RN FIELD CASE MANAGER Irene Mascorro MD LAB_1 Performing Organization Address City/[facility]/ZIP [facility] Phon e Number [address] [address] [place], [place] [phone] ALT (SGPT) (04/16/2007 8:00 PM RN FIELD CASE MANAGER) athologist Signature ALT (SGPT) 12 0 - 55 U/L REGIONS Specimen Anatomical Collection Method Collection Time Receive d Time (Source) Location / / Volume Laterality 04/16/2007 8:00 PM 7 8:21 RN FIELD CASE MANAGER PM RN FIELD CASE MANAGER Irene Mascorro MD LAB_1 Performing Organization Address [facility]/ZIP [facility] Phon e Number [address] [address] [place] [phone] AST (04/16/2007 8:00 PM RN FIELD CASE MANAGER) athologist Signature AST (SGOT) 21 <45 U/L REGIONS Specimen Anatomical Collection Method Collection Time Receive d Time (Source) Location / / Volume Laterality 04/16/2007 8:00 PM 7 8:21 RN FIELD CASE MANAGER PM RN FIELD CASE MANAGER Irene Mascorro MD LAB_1 Performing Organization Address [facility] Phon e Number [address] [address] [place], [place] [phone] (ABNORMAL) BASIC METABOLIC PANEL (04/16/2007 8:00 PM RN FIELD CASE MANAGER) athologist Signature BUN 4 (L) 10 - [...] Volume Laterality 04/16/2007 8:00 PM 7 8:21 RN FIELD CASE MANAGER PM RN FIELD CASE MANAGER Irene Mascorro MD LAB_1 Performing Organization Address [facility] Phon e Number [address] [address] [place], [place] [phone] (ABNORMAL) HEMOGRAM/PLTS (04/16/2007 8:00 PM RN FIELD CASE MANAGER) P athologist Signature WBC 10.8 4.0 - [...] Volume Laterality 04/16/2007 8:00 PM 7 8:21 RN FIELD CASE MANAGER PM RN FIELD CASE MANAGER Irene Mascorro MD LAB_1 Performing Organization Address [facility] Phon e Number [address] [address] [place], [place] [phone] BLOOD CULTURE SITE 2 (04/16/2007 8:00 PM RN FIELD CASE MANAGER) Component Value Ref Test Analysis Performed At [facility] C2cube Range Method Time Signature Specimen Blood REGIONS Description Special Venipuncture REGIONS Requests Culture No Growth After REGIONS 6 Days Report Status Final 04/22/2007 REGIONS Specimen Anatomical Location Collection Method Collection Time Received Time (Source) / Laterality / Volume Blood specimen VENIPUNCTURE / 04/16/2007 8:00 04/16/20 07 8:56 (specimen) Unknown PM RN FIELD CASE MANAGER PM RN FIELD CASE MANAGER Irene Mascorro MD LAB_1 Performing Organization Address City/[facility] Phon e Number [address] [address] [place], [place] [phone] BLOOD CULTURE SITE 1 (04/16/2007 8:00 PM RN FIELD CASE MANAGER) Component Value Ref Test Analysis Performed At [facility] C2cube Range Method Time Signature Specimen Blood REGIONS Description Special Venipuncture REGIONS Requests Culture No Growth After REGIONS 6 Days Report Status Final 04/22/2007 REGIONS Specimen Anatomical Location Collection Method Collection Time Received Time (Source) / Laterality / Volume Blood specimen VENIPUNCTURE / 04/16/2007 8:00 04/16/20 07 8:57 (specimen) Unknown PM RN FIELD CASE MANAGER PM RN FIELD CASE MANAGER Irene Mascorro MD LAB_1 Performing Organization Address City/State/ZIP Code Phon e Number [address] [address] [place], [place] [phone] CT PELVIS WITHOUT IV CONTRAST (04/16/2007 10:40 AM RN FIELD CASE MANAGER) Anatomical Region Laterality Modality Other Specimen (Source) Anatomical Collection Method Collection Time Re ceived Time Location / / Volume Laterality 04/16/2007 10:40 AM RN FIELD CASE MANAGER Impressions 04/19/2007 12:07 PM RN FIELD CASE MANAGER IMPRESSION: Three Ray cages in the left sacroiliac j oint extra-articular recess. ??No evidence of loosening. ??Co mplete bony fusion is not yet appreciated. Narrative 04/19/2007 12:07 PM RN FIELD CASE MANAGER ct sacrum, donna sacral joints from L4-acetabulum, [...] RAD CT/RH AP PELVIS (04/15/2007 10:50 AM RN FIELD CASE MANAGER) Anatomical Region Laterality Modality Other Specimen (Source) Anatomical Collection Method Collection Time Re ceived Time Location / / Volume Laterality 04/15/2007 10:50 AM RN FIELD CASE MANAGER Narrative 04/15/2007 10:50 AM RN FIELD CASE MANAGER LEFT SI FUSION IN O.R.15 AT [phone] HRS. Zachary Kirkland MD RAD GENERAL DIAGNOSTIC/RH ABO Rh & Antibody Screen (Type & Screen) (04/15/2007 6:50 AM RN FIELD CASE MANAGER) Patholo gist Method Time Signature Crossmatch 04/18/2007 REGIONS Expires ABO/RH(D) O POSITIVE REGIONS Antibody Screen NEGATIVE REGIONS Specimen Anatomical Collection Method Collection Time Receive d Time (Source) Location / / Volume Laterality 04/15/2007 6:50 AM 7 6:56 RN FIELD CASE MANAGER AM RN FIELD CASE MANAGER Zachary Kirkland MD LAB_1 Performing Organization Address City/State/ZIP Code Phon e Number [address] [address] [place], [place] [phone] documented in this encounter Visit Diagnoses Initial Assessments - Rosina Morgan - 04/17/2007 11:33 AM [facility] Patient Name: [...] and safety the following equipment is recommended: Cancer Spec: patient has Standard shower chair without backrest: patient has Additional Information: The patient had a sacroiliac fusion and is TDWB on the left LE. The patient lives with her and daughters. She states they will be able to assist her at home. The patient was able to complete lower body dressing with a retail planner which she used previously at home. Will [...] home MIGUEL Holcomb/Marcos (pager) OT Dept #: [phone] - OT Weekend Pager #: [phone] - [facility] [place] Main #: [phone] FIELD CASE MANAGER Initial Assessments - Jessica Romero - 04/16/2007 2:07 PM CST [facility] Physical Therapy Evaluation Patient Name: Megan Wong [...] minutes Jessica Romero PT Phone number is [phone] Pager: [phone] FIELD CASE MANAGER Initial Assessments - Iván Shin - 04/15/2007 1:09 PM CST [facility] Med-Surg, ICU Initial Assessment Note Patient Name: Megan Wong Date of : 1965 General Information Demographics Admitted from: OR to Reason for admission: SI Fusion [facility] admission date/time: 04/15/2007 5:32 AM Actual [...] - procedures 1985 cryo to uterine cervix Has she had recent exposure to communicable diseases? No Does she have a history for resistant organism? None Immunizations Immunization History Name Date(s) Administered ??? 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 No Spiritual/Gnosticism Is the nurse aware, at present, of any needs or issues for which support from the hospital staffing executive might be helpful to patient and/or family? (e.g. need or desire for spiritual support, difficulty coping, end of life issues, grief/loss, etc.) No. ([facility] makes daily rounds to all confucianism patients.) Cultural On the Best Care/Best Experience [...] contributed to the completion of this document. FIELD CASE MANAGER documented in this encounter Administered Medications Inactive Administered Medications - up to 3 most recent administrations Medication Order MAR Action Action Date Dose Rate Site bisacodyl (DULCOLAX) rectal Given 04/18/2007 9:00 AM RN FIELD CASE MANAGER 10 mg suppository 10 mg 10 mg, Rectal, DAILY PRN, Constipation, Starting on Sun04/15/07 at 0800, Until Sun04/19/07 at 2053 calcium carb-vit D 500 mg-200 units (OSCAL Given 04/19 2:00 PM RN FIELD CASE MANAGER 1 Tablet D) 1 Tab 1 Tablet, Oral, TID, First dose on Sun04/15/07 at 1400, Until Discontinued Given 04/19/2007 8:00 AM RN FIELD CASE MANAGER 1 Tablet Given 04/18/2007 8:00 PM RN FIELD CASE MANAGER 1 Tablet cefazolin (ANCEF) 1,000 mg in NS 50 mL IV Given 2006 12:00 AM RN FIELD CASE MANAGER 1,000 mg Piggyback 1,000 mg (1 g), Intravenous, Administer over 30 Minutes, Q8H, First dose on Sun04/15/07 at 1600, For 2 doses, First dose given pre-opGive if not allergic to PCN or cephalosporins. Given 04/15/2007 4:00 PM RN FIELD CASE MANAGER 1,000 mg citric acid/sodium citrate (BICITRA) oral Given 04/15/2007 6:42 AM RN FIELD CASE MANAGER 30 mL solution 30 mL 30 mL, Oral, NOW, On Sun04/15/07 at 0642, For 1 dose D5W 0.45NS 20 KCl IV 1,000 mL Started 04/15/2007 9:49 PM RN FIELD CASE MANAGER 1,000 mL 125 mL/hr 1,000 mL, Intravenous, at 125 mL/hr, CONTINUOUS, Starting on Sun04/15/07 at 0804 Started 04/15/2007 12:00 PM RN FIELD CASE MANAGER 1,000 mL 125 mL/hr docusate (COLACE) capsule 100 mg Given 04/19/2007 8:00 AM RN FIELD CASE MANAGER 100 mg 100 mg, Oral, BID, First dose on Sun04/15/07 at 2000, Until Discontinued Given 04/18/2007 8:00 PM RN FIELD CASE MANAGER 100 mg Given 04/18/2007 8:00 AM RN FIELD CASE MANAGER 100 mg enoxaparin (LOVENOX) injection 40 mg Given 04/19/2007 8:00 AM RN FIELD CASE MANAGER 40 mg 40 mg, Subcutaneous, Q24H, First dose on Sun04/16/07 at 0800, Until Discontinued Given 04/18/2007 8:00 AM RN FIELD CASE MANAGER 40 mg Given 04/17/2007 8:00 AM RN FIELD CASE MANAGER 40 mg famotidine (PEPCID) IV 20 mg Given 04/15/2007 8:00 AM RN FIELD CASE MANAGER 20 mg 20 mg, Intravenous, Q12H, First dose on Sun04/15/07 at 0800, Until Discontinued hydrocodone/acetaminophen (VICODIN) 5-500 Given 2006 5:18 PM RN FIELD CASE MANAGER 2 Tablets MG 1-2 Tab 1-2 Tablet, Oral, Q4H PRN, Pain, Starting on Sun04/15/07 at 0800, Maximum Daily Acetaminophen dose for patients > 53 k g/day Maximum Daily Acetaminophen dose for patients < 53 k mg/kg/day This product contains 500 mg Acetaminophen per tablet. Given 04/19/2007 7:15 AM RN FIELD CASE MANAGER 2 Tablets Given 04/18/2007 8:25 PM RN FIELD CASE MANAGER 2 Tablets HYDROmorphone (DILAUDID) injection 0.1-0 .4 mg Given 04/15/2007 2:45 PM RN FIELD CASE MANAGER 0.4 mg 0.1-0.4 mg, Intravenous, Q1-2H PRN, Pain, Starting on Sun04/15/07 at 0800, Until Sun04/19/07 at 205 HYDROmorphone (DILAUDID) CUSTOMER EXPERT 10 mg in NS Started 04/15/2007 12 :23 PM RN FIELD CASE MANAGER mL/hr 50 mL IV infusion* Intravenous, TITRATE, Starting on Sun04/15/07 at 0809, Until Sun04/19/07 at 0832 hydrOXYzine (ATARAX) tablet 25-50 mg Given 04/19/2007 5:17 PM RN FIELD CASE MANAGER 50 mg 25-50 mg, Oral, Q4H PRN, Pain, Starting on Sun04/15/07 at 0800, Until Sun04/19/07 at 205 Given 04/19/2007 7:15 AM RN FIELD CASE MANAGER 50 mg Given 04/18/2007 8:25 PM RN FIELD CASE MANAGER 50 mg lansoprazole (PREVACID) capsule 30 mg Given 04/19/2007 8:00 AM RN FIELD CASE MANAGER 30 mg 30 mg, Oral, DAILY, First dose on Sun04/17/07 at 1528, Until Discontinued Given 04/18/2007 8:00 AM RN FIELD CASE MANAGER 30 mg Given 04/17/2007 5:00 PM RN FIELD CASE MANAGER 30 mg lidocaine/EPINEphrine 1-1:296702 %, Given 04/15/2007 9:00 AM RN FIELD CASE MANAGER 60 mL bupivacaine/EPINEphrine 0.5-1:999686 % at 0 , INTRA-OP, Starting on Sun04/15/07 at 0607, Verify Route and Dose with Surgeon Prior to Administration LR injection 1,000 mL Given 04/15/2007 6:44 AM RN FIELD CASE MANAGER 1,000 mL 1,000 mL, Intravenous, at 30 mL/hr, PACU, Starting on Sun04/15/07 at 0618, Continuous magnesium citrate oral solution 296 mL Given 04/18/2007 11:29 AM RN FIELD CASE MANAGER 296 mL 296 mL (1 Bottle), Oral, ONCE, On Sun04/18/07 at 1129, For 1 dose meperidine (DEMEROL) injection 12.5-50 m g Given 04/15/2007 11:50 AM RN FIELD CASE MANAGER 25 mg 12.5-50 mg, Intravenous, PACU, Starting on Sun04/15/07 at 1045, Until Sun04/15/07 at 1246, Up to a total dose of no more than 2 mg/kg. Use in PACU only milk of magnesia oral suspension 30 mL Given 04/18/2007 9:00 AM RN FIELD CASE MANAGER 30 mL 30 mL, Oral, ONCE PRN, Constipation, Starting on Sun04/17/07 at 2200, Until Sun04/19/07 at 2053, Give dose at 22:00 on post-op day #2 if no BM by 48 hours post-op milk of magnesia oral suspension 30 mL Given 04/18/2007 9:45 PM RN FIELD CASE MANAGER 30 mL 30 mL, Oral, ONCE, On Sun04/18/07 at 2126, For 1 dose MORphine injectable 5 mg Given 04/15/2007 12:12 PM RN FIELD CASE MANAGER 5 mg 5 mg, Intravenous, PACU, Starting on Sun04/15/07 at 1150, Until Sun04/15/07 at 1246, May give in incremental doses up to a maximum of 0.15 mg/kg. Use in PACU only Given 04/15/2007 11:52 AM RN FIELD CASE MANAGER 5 mg multivitamin (HEXAVITAMIN) 1 Tab Given 04/19/2007 8:00 AM RN FIELD CASE MANAGER 1 Tablet 1 Tablet, Oral, DAILY, First dose on Sun04/16/07 at 0800 Given 04/18/2007 8:00 AM RN FIELD CASE MANAGER 1 Tablet Given 04/17/2007 8:00 AM RN FIELD CASE MANAGER 1 Tablet NS IV 1,000 mL Started 04/17/2007 3:05 AM RN FIELD CASE MANAGER 1,000 mL 125 mL/hr 1,000 mL, Intravenous, at 125 mL/hr, CONTINUOUS, Starting on Sun04/16/07 at 1818 Started 04/16/2007 7:00 PM RN FIELD CASE MANAGER 1,000 mL 125 mL/hr ondansetron (ZOFRAN) injection 4 mg Given 04/19/2007 2:00 AM RN FIELD CASE MANAGER 4 mg 4 mg, Intravenous, Q6H PRN, Nausea, Starting on Sun04/15/07 at 0800 Given 04/16/2007 12:50 PM RN FIELD CASE MANAGER 4 mg oxycodone (OXYCONTIN) tablet 20 mg Given 04/19/2007 8:00 AM RN FIELD CASE MANAGER 20 mg 20 mg, Oral, BID, First dose on Sun04/16/07 at 2155, DO NOT crush or cut in half. Given 04/18/2007 9:45 PM RN FIELD CASE MANAGER 20 mg Given 04/18/2007 8:00 AM RN FIELD CASE MANAGER 20 mg phosphate enema (FLEET) enema 118 mL Given 04/19/2007 7:00 AM RN FIELD CASE MANAGER 118 mL 118 mL (1 Enema), Rectal, DAILY PRN, Starting on Sun04/15/07 at 0800, Until Sun04/19/07 at 2053, Constipation propoxyphene/acetaminophen (DARVOCET-N Given 04/17/2007 12:00 PM RN FIELD CASE MANAGER 1 Tablet 100) 100-650 MG 1 Tab 1 Tablet, Oral, Q4H PRN, Pain, Starting on Sun04/15/07 at 0800, Maximum Daily Acetaminophen dose for patients > 53 k g/day Maximum Daily Acetaminophen dose for patients < 53 k mg/kg/day This product contains 650 mg Acetaminophen per tablet. Given 04/17/2007 6:40 AM RN FIELD CASE MANAGER 1 Tablet Given 04/17/2007 12:35 AM RN FIELD CASE MANAGER 1 Tablet documented in this encounter Active and Recently Administered Medications Times are shown in RN FIELD CASE MANAGER. Scheduled Medication Order 04/17/2007 04/18/2007 04/19/2007 calcium [...] of magnesia oral suspension 30 mL (COMPLETED) 214 (Given - Provider: Patti Lynch) 30 mL, [...] Thomas) 1-2 Tab, Oral, Q4H PRN, Starting Mon 04/15 at 0800, Until Discont inued hydrOXYzine (ATARAX) tablet 25-50 mg (CANCELED) 0200 ( Given - Provider: Christy Pizarro)0640 (Given - Provider: Christy Pizarro)1200 (Given - Provider: Iván Shin)1709 (Given - Provider: Taniya Brewster) 0100 (Given - Provider: Hannah Borrego)2024 (Given - Provider: Patti Lynch - Comment: Rates pain at 10.) 0715 (Given - Provider: Lane pierre)1716 (Given - Provider: Ant Thomas) 25-50 mg, Oral, Q4H PRN, Starting 04/15 at 0800, Until Discon tinued milk of magnesia oral suspension 30 mL (CANCELED) 2101 (Refused - Provider: Taniya Brewster) 899 (Given - Provider: Rosalia Schafer) 30 mL, [...] ued documented in this encounter Care Teams Waste Water Or Water Plant Operator Relationship Specialty Start Date End Date Jose Colin DO PCP - General 12/24/03 09/17/08 [address] [place] [address] documented as of this encounter
--- OUTSIDE RECORDS SUMMARY | 2022-05-09 13:43 | XMS_ITS | Encounter Summary ---
:1965 Author Organization [facility] Address [address] [address] Care Team Providers Name Role Phone Jose Colin DO Primary Care Provider [phone] Encounter Details Date Type Department Care Team Description 05/03/2007 Orders Only [facility] DVT (Deep Venous [address] Thrombosis) [place], [place] [id number] Social History Tobacco Use Types Packs/Day Years Used Date Smoking Tobacco: Never Alcohol Use Standard Drinks/Week Comments Yes 0 (1 standard drink = 0.6 oz pure alcoho l) rarely Sex Assigned at Date Recorded Not on file documented as of this encounter Progress Notes Jose Colin - 05/27/2007 12:47 PM TIN CONTAINER STRAIGHTENER Quick Note: ok to send letter Jose Colin DO 12:47 PM 05/27/2007 CONTAINER STRAIGHTENER documented in this encounter Plan of Treatment Not on filedocumented as of this encounter Procedures Procedure Name Priority Date/Time Associated Diagnosis Comme nts COMPLETE BLOOD Routine 05/03/2007 8:55 AM DVT (Deep Venous Res ults for this COUNT-W/DIFF TIN CONTAINER STRAIGHTENER Thrombosis) procedure are i n the results section. INR/PROTIME Same Day 05/03/2007 8:55 AM DVT (Deep Venous Resul ts for this TIN CONTAINER STRAIGHTENER Thrombosis) procedure are i n the results section. documented in this encounter Results (ABNORMAL) HEMOGRAM/PLTS/DIFF (05/03/2007 8:55 AM TIN CONTAINER STRAIGHTENER) [facility] Method Time Signature WBC 6.9 4.0 - 11.0 [facility] k/ul RBC 4.27 4.0 - 5.2 [facility] M/ul Hemoglobin 13.4 12.0 - [facility] 16.0 g/dl HCT 39.3 36.0 - [facility] 46.0 % MCV 92.0 80 - 100 [facility] fl MCH 31.4 26 - 34 pg [facility] MCHC 34.1 32 - 36 % [facility] RDW 12.6 11.5 - [facility] 14.5 % Platelets 419 150 - 450 [facility] k/ul PMN/Band 40 (L) 43 - 72 % [facility] Lymph 49 (H) 17 - 43 % [facility] Tift 6 4 - 12 % [facility] Eos 3 0 - 8 % [facility] Baso 1 0 - 1 % [facility] Neutrophil 2.8 1.8 - 7.7 [facility] Absolute k/ul Lymph Absolute 3.4 1.0 - 4.8 [facility] k/ul Tift Absolute 0.4 0.1 - 0.7 [facility] k/ul Eos Absolute 0.2 0.0 - 0.5 [facility] k/ul Baso Absolute 0.1 0.0 - 0.2 [facility] k/ul Specimen Anatomical Collection Method Collection Time Receive d Time (Source) Location / / Volume Laterality 05/03/2007 8:55 AM 7 8:56 TIN CONTAINER STRAIGHTENER AM TIN CONTAINER STRAIGHTENER Jose Colin DO LAB_1 Performing Organization Address City/[facility]/ZIP Code Phon e Number [place] [phone] [address] (ABNORMAL) INR/PROTIME (05/03/2007 8:55 AM TIN CONTAINER STRAIGHTENER) P athologist Signature Protime 18.5 (H) 12.0 - [facility] 14.5 sec Coumadin Yes [facility] Spec[facility] Anatomical Collection Method Collection Time Receive d Time (Source) Location / / Volume Laterality 05/03/2007 8:55 AM 7 8:56 TIN CONTAINER STRAIGHTENER AM TIN CONTAINER STRAIGHTENER Jose Colin DO LAB_1 Performing Organization Address City/[facility]/ZIP Code Phon e Number [place] [phone] [facility] [address] [address] documented in this encounter Visit Diagnoses Diagnosis DVT (deep venous thrombosis) ([facility]) Acute venous embolism and thrombosis of unspecified deep vessels of lower extremity documented in this encounter Care Teams Door Technician Relationship Specialty Start Date End Date Jose Colin DO PCP - General 12/24/03 09/17/08 [address] [place] [address] documented as of this encounter
--- OUTSIDE RECORDS SUMMARY | 2022-05-09 13:43 | XMS_ITS | Encounter Summary ---
:1965 Author Organization [facility] Address [address] [place] [address] Care Team Providers Name Role Phone Dungjosé antonioelbaJose medina DO Primary Care Provider [phone] Reason for Visit Reason Onset Date Comments DVT(DEEP VEIN THROMBOSIS) 04/30/2007 Encounter Details Date Type Department Care Team Description 04/30/2007 Telephone Careline Celena Wells, DVT(DEEP VEIN [address] RN THROMBOSIS) [place], [place] [address] [phone] [place] [address] Social History Tobacco Use Types Packs/Day Years Used Date Smoking Tobacco: Never Alcohol Use Standard Drinks/Week Comments Yes 0 (1 standard drink = 0.6 oz pure alcoho l) rarely Sex Assigned at Date Recorded Not on file documented as of this encounter Nursing Notes Celena Wells - 04/30/2007 7:00 PM CST Shyla Perdomo ELEVATOR BUILDER called [facility] to let [facility] know pt has a DVT as [facility]. She cannot remember pt's name and gave [facility] nurse number to call at ultrasound to get pt name as pt is still there waiting for further direction. Pt needs lovenox started but Aleyda Perdomo gopingout of phone service shortly. She wondered if pt can be seen at [facility] to get shots started. Called Lead Rn Celena Alejandro at [facility] and she stated pt can be seen at any [facility] and if Rn there, pt can get shot from Rn if [facility] Dr orders it and then will need to f/u in regular clinic in am to get pt teaching on thelovenox shots and then further f/u. PT can be seen at [facility] but will need to see [...] paz. Stated pt could be seen at [facility] or [facility] or [facility] and be seen by Dr to [...] she would like to be seen at [facility] as it is only 10 min from her. Called Rissa at [facility] to give number for them toreach radiologist for confirmation if needed and to let them know pt would be coming in for lovenox shot. She stated nurses are busy. Did not get to give radiology number to nurses. She hung up. Cb from [facility] and they stated to speak with Dr Choi and did not speak with Dr Choi as did not come to the phone. They thought Dr position classification specialist for clinic should have been consulted about matter. They maysend her to [facility] was stated. Relayed information that pt was enroute but she did know how to give herself shots but she would need Dr orders to get medication started for DVT per protocol. ES OPERATOR documented in this encounter Plan of Treatment Not on filedocumented as of this encounter Visit Diagnoses Not on filedocumented in this encounter Care Teams Chemical Engineering Technician Relationship Specialty Start Date End Date Jose Colin DO PCP - General 12/24/03 09/17/08 [address] [place] [address] documented as of this encounter
--- OUTSIDE RECORDS SUMMARY | 2022-05-09 13:43 | XMS_ITS | Encounter Summary ---
:1965 Author Organization [facility] Address [address] [place] [address] Care Team Providers Name Role Phone Jose Colin DO Primary Care Provider [phone] Reason for Visit Reason Onset Date Comments QUESTIONS, GENERAL 02/27/2007 Encounter Details Date Type Department Care Team Description 02/27/2007 Telephone [facility] Internal Med Jose Witt QUESTIONS, GENERAL [address] [facility], [place] [address] [address] [facility] [phone] [place] [address] (Wo rk) Social History Tobacco [...] omeprazole Please find out where to send med Jose Allan. DO [place] 10:06 AM 03/04/2007 Thea Bella - 02/27/2007 11:57 AM CDT Patients last clinic visit was in Feb 14. Please review patients record and recommend. Patients rx was filled for one month on 02/23/07. Patient wondering whether she really has to see the doctor yearly for her refills of this med? YanNestor Stephen - 02/27/2007 11:23 AM CDT Patient would [...] can be reached at work until 3:30pm ([phone]). Please call as soon as you can. Thank-you! Sincerely, Nestor Mitchell Her documented in this encounter Plan of Treatment Not on filedocumented as of this encounter Visit Diagnoses Diagnosis GERD (gastroesophageal reflux disease) - Primary Esophageal reflux documented in this encounter Care Teams Wearing Apparel Assembler Relationship Specialty Start Date End Date Jose Colin DO PCP - General 12/24/03 09/17/08 [address] [place] [address] documented as of this encounter
--- OUTSIDE RECORDS SUMMARY | 2022-05-09 13:43 | XMS_ITS | Encounter Summary ---
:1965 Author Organization [facility] Address [address], [place] [address] Care Team Providers Name Role Phone MoJose medina Primary Care Provider [phone] Encounter Details Date Type Department Care Team Description 04/15/2007 Surgery RH Operating Room Zachary Kirkland MD FUSION SACRAL ILIAC [address] [facility]. [address] [place] [address] [place], [place] [phone] (Wo rk) Social History Tobacco Use Types Packs/Day Years Used Date Smoking Tobacco: Never Alcohol Use Standard Drinks/Week Comments Yes 0 (1 standard drink = 0.6 oz pure alcoho l) rarely Sex Assigned at Date Recorded Not on file documented as of this encounter Last Filed Vital Signs Vital Sign Reading Time Taken Comments Blood Pressure 123/70 04/15/2007 6:07 AM SOLE ROUGHER Pulse 65 04/15/2007 6:07 AM SOLE ROUGHER Temperature 37.2 ??C (98.9 ??F) 04/15/2007 6:07 AM SOLE ROUGHER Respiratory Rate 16 04/15/2007 6:07 AM SOLE ROUGHER Oxygen Saturation 99% 04/15/2007 6:07 AM SOLE ROUGHER Inhaled Oxygen Concentration - - Weight 89.4 kg (197 lb) 04/15/2007 6:07 AM SOLE ROUGHER Height 160 cm (5' 3) 04/15/2007 6:07 AM SOLE ROUGHER Body Mass Index 34.9 04/15/2007 6:07 AM SOLE ROUGHER documented in this encounter Discharge Summaries Zachary Kirkland - 05/15/2007 9:55 AM SOLE ROUGHER ADMIT DATE: 04/15/2007 DISCHARGE DATE: 04/19/2007 FINAL [...] aspirin for anticoagulation prophylaxis. Zachary Kirkland MD [facility] Dictated: 05/15/2007 09:55:58 Transcribed: 05/16/2007 10:31:51 Doc #: [id number] cc:Zachary Kirkland MD, Referring Physician Jose Colin DO, Primary Physician 1 Page 1 Patient Name: MEGAN WONG DISCHARGE SUMMARY CONFIDENTIAL MEDICAL RECORD [address] [address] Page 1 Patient: MEGAN WONG Location: HPN: [id number] Admit Date: 04/15/2007 Date of : 1965 Discharge Date: 04/19/2007 Age: 42Y DISCHARGE SUMMARY ROUGHER documented in this encounter Discharge Instructions Discharge InstructionsAmanda Lawrence - 04/19/2007 6:43 PM SOLE ROUGHER ` Discharge Instructions for: Megan Wong Thank you for choosing [facility] as your hospital. Please read the following instructions carefully. The staff will go over this information with you and answer your questions. General Information Allergies: Erythromycin Immunization: Most Recent Immunizations Name Date(s) Administered * Td, Preservative Free 06/16/2005 Phone number: [phone] (home) [phone] (work) Discharging physician: RICHARD Discharge date: 04/19/07 [...] the anticoagulation order. Contact information (name/clinic/phone number): [phone] When to Resume Normal Activities: Order Comments: [...] been sent to the following clinic:{[facility] FAX DESTINATION:[id number]} Home Care Instructions Patient Teaching Handouts INCISION [...] and/or chills Community Resources NONE Contact Information [address] [phone] For questions about your discharge instructions call the nursing unit : 9E Emergency & Urgently Needed Care: For emergencies call 911 and/or get medical help right away. If you are a [employer] member and have medical needs after clinic hours you may call the CareLine at [phone] or . Smoking and second-hand smoke exposure: Smoking damages blood vessels, reduces the oxygen in your blood and makes your heart beat too fast.If you smoke you should quit. Everyone should avoid second- hand smoke. If you would like further assistance after your discharge, please contact [phone] or visit [email or web address] can offer further information and assistance. You will receive a patient satisfaction survey either at the time of discharge or by mail in about two weeks. We want to hear about your stay at [facility]. Please help us improve by telling us about your experience . When leaving your room at discharge, please stop at the nursing unit desk to check out. I understand my discharge instructions: Megan Wong (or Furniture Arranger) ROUGHER documented in this encounter Medications at Time [...] Ant Thomas - 04/19/2007 6:27 PM CST [facility] Discharge Note - Nursing Patient Name: Megan [...] by: Robert Pelaez RN ---End of Report--- ROUGHER Maria E Galindo - 04/19/2007 2:25 PM CST I have evaluated this patient and reviewed all related documentation. Maria E Galindo RN 04/19/2007 2:[address] Gilliland - 04/19/2007 1:56 AM CST [facility] Progress Note (Nursing) Patient [...] movement Lane Ballesteros, ---End of Report --- ROUGHER Patti Lynch - 04/18/2007 10:57 PM CST [facility] Progress Note (Nursing) Patient [...] Patti Bahena RN ---End of Report --- ROUGHER Jessica Romero - 04/18/2007 4:13 PM CST [facility] PT Progress Note Patient [...] Rosalia Sotelo - 04/18/2007 2:03 PM CST [facility] Progress Note (Nursing) Patient [...] Rosalia Schafer LPN ---End of Report --- ROUGHER Sloane Harvey - 04/18/2007 2:03 PM CST PT HAS BEEN ASSESSED,AGREE WITH NOTE AND PLAN OF CARE. ROUGHER Jessica Romero - 04/18/2007 12:57 PM CST [facility] PT Progress Note Patient [...] stairs upon d/c initially. Jessica Romero PT ROUGHER Rosina Morgan - 04/18/2007 11:44 AM CST [facility] Occupational Therapy Progress Note Patient Name: [...] spent in patient contact: 30 minutes MIGUEL Holcomb/L (pager) OT Dept #: [phone] - OT Weekend Pager #: [phone] - [facility] Main #: [phone] ROUGHER Irene Mascorro - 04/18/2007 9:15 AM CST [facility] Progress Note (MD) Patient Name: Megan Wong Date of : 1965 Date of service: 04/18/07 Diagnosis: Sacroiliac fusion, fever, abdominal pain, prior lumbar fusion Admit Date/Time: 04/15/2007 5:32 AM Attending Prov: Zachary Kirkland Patient Service: Orthopedics Subjective: Patient feeling much better. TEST INSPECTION ENGINEER stopped yesterday. Ambulating. Still has LLQ pain [...] 9:22 AM --- End of Report --- ROUGHER Hannah Borrego - 04/18/2007 2:36 AM CST [facility] Progress Note (Nursing) Patient [...] Taniya Hanley - 04/17/2007 9:31 PM CST [facility] Progress Note (Nursing) Patient [...] fax to [facility]/ care coordinated with [facility] on duty. Refused flu vaccine and MOM ordered. Afebrile the whole shift. With pending blood cultures x 2 sites today and cxray results..IS at max volume when able. Plan: Monitor for comfort Continue cares Taniya Brewster RN ---End of Report --- ROUGHER Zachary Kirkland - 04/17/2007 6:43 PM CST Post op day two. Alert, CMS intact, Reasonable comfort Progressing in PT No complication Zachary Kirkland MD ROUGHER Sena Zamarripa - 04/17/2007 3:27 PM CST [...] bowel sounds present. No tenderness and distension. 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 Extremeties: No pitting edema, [...] 1 Tab Oral TID ??? HYDROmorphone (DILAUDID) TEST INSPECTION ENGINEER 10 mg in NS 50 mL IV infusion* IV TITRATE ??? influenza virus tri-split (FLUZONE) injection 0.5 mL 0.5 mL IM PRIOR TO DISCHARGE LAB/IMAGE Lab Results Basename Value Date/Time ??? WBC 11.0 04/17/07709 ??? HGB 11.2* 04/17/07709 ??? PLTS 180 04/17/07709 Lab Results Basename Value Date/Time ??? BUN 5* 04/17/07709 ??? CREATININE 0.7 11/7/07 0710 Lab Results Basename Value Date/Time ??? SODIUM [...] fusion 4) Post-op pain control - dilaudid TEST INSPECTION ENGINEER To continue IVF. Sena Zmaarripa MD 04/17/2007, 3:32 PM [phone] Date of Service: 04/17/2007 Report completed by: Sena Zamarripa MD ([facility]) at 3:27 PM on 04/17/2007 ROUGHER Jessica Romero - 04/17/2007 2:55 PM CST [facility] PT Progress Note Patient [...] bid in dept tomorrow. Jessica Romero, PT ROUGHER Iván Shin - 04/17/2007 11:56 AM CST [facility] Progress Note (Nursing) Patient [...] Iván Shin, RN ---End of Report --- ROUGHER Kia Infante - 04/17/2007 11:39 AM CST [facility] Care Management [employer] Initial Assessment Name: Megan Wong Admission Date/Time: 04/15/2007 5:32 AM Attending MD: Zachary Kirkland DATA Megan Wong was referred to this [employer] for discharge planning. Chart reviewed, discussed with interdisciplinary team, as well as with patient and family. Megan Wong was admitted to for a L SI fusion Insurance: Payor: [employer] SELF [id number] Plan: [employer]URED Product Type: *No [...] with her and two dtrs in a [facility] in [place]. There are 3 steps with a railing [...] completed by Kia Infante RN, Pager Number [phone] Christy Pepper - 04/17/2007 1:31 AM CST [facility] Progress Note (Nursing) Patient [...] Sandra Cabrera - 04/16/2007 9:35 PM CST [facility] Progress Note (Nursing) Patient [...] 2500 cc of urine output via emery,dialudid TEST INSPECTION ENGINEER discontinued and pt started on oral meds, notified regarding pt status and request for oycontin,pt bathed and repostitioned. Plan: Continue to monitor, turn Q2 hours, reassess need for emery in am, encourage IS. Sandra Blackmon RN ---End of Report --- ROUGHER Irene Mascorro - 04/16/2007 6:00 PM CST [facility] Progress Note (MD) Patient [...] pyelonephritis. Incision pain okay, but on dilaudid TEST INSPECTION ENGINEER. Occasionally desats due to sleepiness, but sats [...] 1 Tab Oral TID ??? HYDROmorphone (DILAUDID) TEST INSPECTION ENGINEER 10 mg in NS 50 mL IV [...] NS 7) Post-op pain control - dilaudid TEST INSPECTION ENGINEER Total time for chart review, exam and interview, following up on labs and ultimately reviewing AXR 35 minutes, coordination of care > 50%. Report Completed by: Irene Mascorro MD --- End of Report --- ROUGHER Leanna French - 04/16/2007 2:14 PM CST [facility] Progress Note (Nursing) Patient Name: Megan Wong Date of : 1965 Identify/Problem(s): GENERAL STATU. Desired Outcome(s): Will be stabilized. Evaluation: Pt oriented but quite sleepy. On cotton factor dilaudid with adequate pain control. C/o nausea, received prn zofran with relief. Incision to lower back is intact with some shadowing. Cms to LE intact. Vss exceptfor temp of 99.5 and 100.9 at 0800 and noon respectively. Lungs clear, encouraged IS usage. MD updated. Plan: Cont to monitor, assess and medicate as indicated. Leanna Perales Mba, RN ---End of Report --- ROUGHER Rosina Morgan - 04/16/2007 1:02 PM CST [facility] Occupational Therapy The patient is scheduled to be seen by OT. MIGUEL Holcomb/Marcos (pager) OT Dept #: [phone] - OT Weekend Pager #: [phone] - [facility] Main #: [phone] Gavin Ortiz - 04/16/2007 10:25 AM CST [facility] Clinical Pharmacy Medication Reconciliation Note Patient Name: Megan Wong Date of : 1965 Medications Reviewed and Reconciled: Any medication adjustments made from patient's medication history regimen are appropriate for current hospitalization and medical condition. PHARMACIST NAME: Gavin Sanchez Phone/Pager #: [phone] -- End of Report -- Huseyin Dey - 04/16/2007 7:59 AM CST [facility] Progress Note (Nursing) Patient Name: Megan Wong Date of : 1965 Identify/Problem(s): pain Desired Outcome(s): Will have maximum Evaluation: Pt neuro intact, lower back incision d/i with small shadow, takes I.S to 1250, got 50mg of atarax for muscle pain with relief, repositioned often on this shift. BP improved. Used 4.73 mg of dilaudid TEST INSPECTION ENGINEER-- new syringe placed at 0800. Presently lying down in bed without problem. Plan: Will continue to monitor Huseyin Miguel RN ---End of Report --- Zachary Porter - 04/16/2007 7:53 AM CST Post op day one Alert, CMS intact Reasonable comfort. No complication evident P: per protocol PT Zachary Kirkland MD Sandra Cabrera - 04/15/2007 11:57 PM CST [facility] Progress Note (Nursing) Patient [...] of shadowing noted, pain controlled with dilaudid TEST INSPECTION ENGINEER (14.9 mg of dilauid used) and atarax, emery patent with good amount of output, plexipulses on BLE. Plan: Continue to monitor. Sandra Blackmon RN ---End of Report --- Iván Pinto - 04/15/2007 1:30 PM CST [facility] Nursing Post-Op Note Patient Name: Megan Wong Date of : 1965 Admission Date/Time: 04/15/2007 5:32 AM Returned to: 9E on (date) 04/15/07 at (time) 1230 from P.A.R. Transported by: Litter/cart Medical devices present on return from O.R.: IV General condition on return from O.R.: fair Report Completed by: Iván Shin RN ---End of Report--- ROUGHER Zachary Kirkland - 04/15/2007 8:03 AM CST Post op note Left SI fusion for sacralgia No complications EBL 100 cc Plan per orders, TEST INSPECTION ENGINEER, PT home in 2-3 days Zachary Kirkland MD ROUGHER documented in this encounter Procedure Notes Zachary [...] was prepped and draped prone on a 4-adapted physical education teacher. A longitudinal incision was made under x-ray [...] touch weight-bearing for 6 weeks, Lovenox and TEST INSPECTION ENGINEER Dilaudid, home in 2-3 days. Zachary Kirkland MD mjb Dictated: 04/15/2007 11:00:01 Transcribed: 04/15/2007 11:53:11 Doc #: [id number] cc:Zachary Kirkland MD, Referring Physician Jose Colin DO, Primary Physician DO NOT SIGN UNLESS PRESENT FOR PROCEDURE I attest that I was present for and participated in the ma portions of this procedure(s) in compliance with the Health Care Financing Administration Teaching Physician Guidelines. Signed Date Regions Staff Physician 1 Page 2 Patient Name: MEGAN WONG OPERATIVE REPORT CONFIDENTIAL MEDICAL RECORD [address] [address] Page 1 Patient: MEGAN WONG Location: OR N: [id number] Admit Date: 04/15/2007 Date of : 1965 Discharge Date: Age: 42Y OPERATIVE REPORT ROUGHER documented in this encounter Plan of Treatment Not on filedocumented as of this encounter Procedures Procedure Name Priority Date/Time Associated Comments Diagnosis COMPLETE BLOOD Routine 04/18/2007 6:25 AM Results for this COUNT-NO DIFF SOLE ROUGHER procedure are in the results section. BLOOD CULTURE SITE 2 Routine 04/17/2007 6:15 PM R esults for this SOLE ROUGHER procedure are i n the results section. BLOOD CULTURE Routine 04/17/2007 5:50 PM Results for this SOLE ROUGHER procedure are i n the results section. CHEST PA/LATERAL Routine 04/17/2007 3:51 PM Resul ts for this SOLE ROUGHER procedure are i n the results section. BASIC METABOLIC PANEL Routine 04/17/2007 7:10 AM Results for this SOLE ROUGHER procedure are i n the results section. COMPLETE BLOOD Routine 04/17/2007 7:10 AM Results for this COUNT-NO DIFF SOLE ROUGHER procedure are in the results section. URINE CULTURE Routine 04/16/2007 8:45 PM Results for this SOLE ROUGHER procedure are i n the results section. UA CONDITIONAL UC Routine 04/16/2007 8:45 PM Resu lts for this SOLE ROUGHER procedure are i n the results section. BLOOD CULTURE SITE 2 Routine 04/16/2007 8:00 PM R esults for this SOLE ROUGHER procedure are i n the results section. GOLD HOLD TUBE (OR Routine 04/16/2007 8:00 PM Res ults for this RED/LOPEZ) SOLE ROUGHER procedure are i n the results section. BLOOD CULTURE Routine 04/16/2007 8:00 PM Results for this SOLE ROUGHER procedure are i n the results section. BASIC METABOLIC PANEL Routine 04/16/2007 8:00 PM Results for this SOLE ROUGHER procedure are i n the results section. BILIRUBIN, TOTAL & Routine 04/16/2007 8:00 PM Res ults for this DIRECT SOLE ROUGHER procedure are i n the results section. COMPLETE BLOOD Routine 04/16/2007 8:00 PM Results for this COUNT-NO DIFF SOLE ROUGHER procedure are in the results section. ALT (SGPT) Routine 04/16/2007 8:00 PM Results f or this SOLE ROUGHER procedure are i n the results section. AST Routine 04/16/2007 8:00 PM Results f or this SOLE ROUGHER procedure are i n the results section. ALKALINE PHOSPHATASE, Routine 04/16/2007 8:00 PM Results for this TOTAL SOLE ROUGHER procedure are i n the results section. CT PELVIS WITHOUT IV Routine 04/16/2007 10:40 Res ults for this CONTRAST AM SOLE ROUGHER procedure are i n the results section. AP PELVIS Routine 04/15/2007 10:50 Results for this AM SOLE ROUGHER procedure are i n the results section. FUSION SACRAL ILIAC AM Admit 04/15/2007 7:50 AM SI PAIN SOLE ROUGHER Case Notes PROC: LEFT SI FUSION ABO RH & ANTIBODY SCREEN STAT 04/15/2007 6:50 AM SOLE ROUGHER Results for this procedure (TYPE & SCREEN) are in the r esults section. documented in this encounter Results (ABNORMAL) HEMOGRAM/PLTS (04/18/2007 6:25 AM SOLE ROUGHER) P athologist Signature WBC 10.3 4.0 - [...] Volume Laterality 04/18/2007 6:25 AM 7 6:36 SOLE ROUGHER AM SOLE ROUGHER Sena Zamarripa MD LAB_1 Performing Organization Address City/State/ZIP Code Phon e Number [address] [address] [place], [place] [phone] BLOOD CULTURE SITE 2 (04/17/2007 6:15 PM SOLE ROUGHER) Component Value Ref Test Analysis Performed At Patholo gist Range Method Time Signature Specimen Blood REGIONS Description VENIPUNCTURE Special Site 2 REGIONS Requests Venipuncture Culture No Growth After REGIONS 6 Days Report Status Final 04/23/2007 REGIONS Specimen Anatomical Location Collection Method Collection Time Received Time (Source) / Laterality / Volume Blood specimen VENIPUNCTURE / 04/17/2007 6:15 04/17/20 07 8:14 (specimen) Unknown PM SOLE ROUGHER PM SOLE ROUGHER Sena Zamarripa MD LAB_1 Performing Organization Address [facility]/ZIP [facility] Phon e Number [address] [address] [place], [place] [phone] BLOOD CULTURE SITE 1 (04/17/2007 5:50 PM SOLE ROUGHER) [facility] gist Method Time Signature Specimen Blood AT IV REGIONS Description INSERTION Special Site 1 At IV REGIONS Requests Insertion Culture No Growth REGIONS After 6 Days Report Status Final REGIONS 04/23/2007 Specimen Anatomical Collection Method Collection Time Receive d Time (Source) Location / / Volume Laterality Blood specimen 04/17/2007 5:50 PM 007 6:25 (specimen) (At SOLE ROUGHER PM SOLE ROUGHER IV Insertion) Sena Zamarripa MD LAB_1 Performing Organization Address [facility]/ZIP [facility] Phon e Number [address] [address] [place], [place] [phone] CHEST PA/LATERAL (04/17/2007 3:51 PM SOLE ROUGHER) Anatomical Region Laterality Modality Other Specimen (Source) Anatomical Collection Method Collection Time Re ceived Time Location / / Volume Laterality 04/17/2007 3:51 PM SOLE ROUGHER Narrative 04/19/2007 1:34 PM SOLE ROUGHER pneumonia: FEVER . CHEST 2 VIEWS 04/17/07 INDICATION: ??Fever and pneumonia. COMPARISON: ??None. FINDINGS: ??No infiltrates. ??Heart norm al size allowing for technique. Post-op change lower cervical spine. Sena Zamarripa MD RAD GENERAL DIAGNOSTIC/RH (ABNORMAL) BASIC METABOLIC PANEL (04/17/2007 7:10 AM SOLE ROUGHER) athologist Signature BUN 5 (L) 10 - [...] Volume Laterality 04/17/2007 7:10 AM 7 7:30 SOLE ROUGHER AM SOLE ROUGHER Irene Mascorro MD LAB_1 Performing Organization Address [facility] Phon e Number [address] [address] [place], [place] [phone] (ABNORMAL) HEMOGRAM/PLTS (04/17/2007 7:10 AM SOLE ROUGHER) athologist Signature WBC 11.0 4.0 - 11.0 [...] Volume Laterality 04/17/2007 7:10 AM 7 7:30 SOLE ROUGHER AM SOLE ROUGHER Irene Mascorro MD LAB_1 Performing Organization Address City/[facility] Phon e Number [address] [address] [place], [place] [phone] URINE CULTURE (04/16/2007 8:45 PM SOLE ROUGHER) [facility] Method Time Signature Specimen Urine REGIONS Description Special Unspecified REGIONS Requests Culture No Growth After REGIONS 2 Days Report Status Final REGIONS 04/18/2007 Specimen Anatomical Collection Method Collection Time Receive d Time (Source) Location / / Volume Laterality 04/16/2007 8:45 PM 200 7 9:17 SOLE ROUGHER PM SOLE ROUGHER Zachary Kirkland MD LAB_1 Performing Organization Address [facility] Phon e Number [address] [address] [place], [place] [phone] (ABNORMAL) UA CONDITIONAL UC (04/16/2007 8:45 PM SOLE ROUGHER) Analysis Performed At [facility] logist Time Signature Urine Color None REGIONS Urine Clarity Clear REGIONS Specific 1.001 (L) 1.005 - REGIONS [place],Ur 1.03 pH, Urine 5.5 4.5 - 8.0 [...] specimen 04/16/2007 8:45 PM 007 9:00 (specimen) SOLE ROUGHER PM SOLE ROUGHER Irene Mascorro MD LAB_1 Performing Organization Address [facility] Phon e Number [address] [address] [place], [place] [phone] GOLD HOLD TUBE (OR RED/LOPEZ) (04/16/2007 8:00 PM SOLE ROUGHER) Patholo gist Method Time Signature Gold Hold Held in [facility] Tube Chemistry sample rack for 7 days Specimen Anatomical Collection Method Collection Time Receive d Time (Source) Location / / Volume Laterality 04/16/2007 8:00 PM 7 8:21 SOLE ROUGHER PM SOLE ROUGHER Irene Mascorro MD LAB_1 Performing Organization Address [facility]/ZIP [facility] Phon e Number [address] [address] [place], [place] [phone] BILIRUBIN, TOTAL & DIRECT (04/16/2007 8:00 PM SOLE ROUGHER) athologist Signature Bilirubin, 0.8 0.2 - 1.2 REGIONS Total mg/dl Bilirubin, 0.2 0.1 - 0.4 REGIONS Direct mg/dl Specimen Anatomical Collection Method Collection Time Receive d Time (Source) Location / / Volume Laterality 04/16/2007 8:00 PM 7 8:21 SOLE ROUGHER PM SOLE ROUGHER Irene Mascorro MD LAB_1 Performing Organization Address [facility]/[place]IP [facility] Phon e Number [address] [address] [place], [place] [phone] ALKALINE PHOSPHATASE, TOTAL (04/16/2007 8:00 PM SOLE ROUGHER) athologist Signature Alkaline 77 34 - 104 REGIONS Phosphatase U/L Specimen Anatomical Collection Method Collection Time Receive d Time (Source) Location / / Volume Laterality 04/16/2007 8:00 PM 7 8:21 SOLE ROUGHER PM SOLE ROUGHER Irene Mascorro MD LAB_1 Performing Organization Address City/[facility] Phon e Number [address] [address] [place], [place] [phone] ALT (SGPT) (04/16/2007 8:00 PM SOLE ROUGHER) athologist Signature ALT (SGPT) 12 0 - 55 U/L REGIONS Specimen Anatomical Collection Method Collection Time Receive d Time (Source) Location / / Volume Laterality 04/16/2007 8:00 PM 7 8:21 SOLE ROUGHER PM SOLE ROUGHER Irene Mascorro MD LAB_1 Performing Organization Address City/[facility]/ZIP [facility] Phon e Number [address] [address] [place], [place] [phone] AST (04/16/2007 8:00 PM SOLE ROUGHER) athologist Signature AST (SGOT) 21 <45 U/L REGIONS Specimen Anatomical Collection Method Collection Time Receive d Time (Source) Location / / Volume Laterality 04/16/2007 8:00 PM 7 8:21 SOLE ROUGHER PM SOLE ROUGHER Irene Mascorro MD LAB_1 Performing Organization Address [facility] Phon e Number [address] [address] [place], [place] [phone] (ABNORMAL) BASIC METABOLIC PANEL (04/16/2007 8:00 PM SOLE ROUGHER) athologist Signature BUN 4 (L) 10 - [...] Volume Laterality 04/16/2007 8:00 PM 7 8:21 SOLE ROUGHER PM SOLE ROUGHER Irene Mascorro MD LAB_1 Performing Organization Address City/[facility] Phon e Number [address] [address] [place], [place] [phone] (ABNORMAL) HEMOGRAM/PLTS (04/16/2007 8:00 PM SOLE ROUGHER) P athologist Signature WBC 10.8 4.0 - [...] Volume Laterality 04/16/2007 8:00 PM 7 8:21 SOLE ROUGHER PM SOLE ROUGHER Irene Mascorro MD LAB_1 Performing Organization Address [facility] [facility] Phon e Number [address] [address] [place], [place] [phone] BLOOD CULTURE SITE 2 (04/16/2007 8:00 PM SOLE ROUGHER) Component Value Ref Test Analysis Performed At [facility] gist Range Method Time Signature Specimen Blood REGIONS Description Special Venipuncture REGIONS Requests Culture No Growth After REGIONS 6 Days Report Status Final 04/22/2007 REGIONS Specimen Anatomical Location Collection Method Collection Time Received Time (Source) / Laterality / Volume Blood specimen VENIPUNCTURE / 04/16/2007 8:00 04/16/20 07 8:56 (specimen) Unknown PM SOLE ROUGHER PM SOLE ROUGHER Irene Mascorro MD LAB_1 Performing Organization Address City/[facility] Phon e Number [address] [address] [place], [place] [phone] BLOOD CULTURE SITE 1 (04/16/2007 8:00 PM SOLE ROUGHER) Component Value Ref Test Analysis Performed At [facility] gist Range Method Time Signature Specimen Blood REGIONS Description Special Venipuncture REGIONS Requests Culture No Growth After REGIONS 6 Days Report Status Final 04/22/2007 REGIONS Specimen Anatomical Location Collection Method Collection Time Received Time (Source) / Laterality / Volume Blood specimen VENIPUNCTURE / 04/16/2007 8:00 04/16/20 07 8:57 (specimen) Unknown PM SOLE ROUGHER PM SOLE ROUGHER Irene Mascoror MD LAB_1 Performing Organization Address City/State/ZIP Code Phon e Number [address] [address] [place], [place] [phone] CT PELVIS WITHOUT IV CONTRAST (04/16/2007 10:40 AM SOLE ROUGHER) Anatomical Region Laterality Modality Other Specimen (Source) Anatomical Collection Method Collection Time Re ceived Time Location / / Volume Laterality 04/16/2007 10:40 AM SOLE ROUGHER Impressions 04/19/2007 12:07 PM SOLE ROUGHER IMPRESSION: Three Ray cages in the left sacroiliac j oint extra-articular recess. ??No evidence of loosening. ??Co mplete bony fusion is not yet appreciated. Narrative 04/19/2007 12:[address] sacrum, donna sacral joints from L4-acetabulum, [...] RAD CT/RH AP PELVIS (04/15/2007 10:50 AM SOLE ROUGHER) Anatomical Region Laterality Modality Other Specimen (Source) Anatomical Collection Method Collection Time Re ceived Time Location / / Volume Laterality 04/15/2007 10:50 AM SOLE ROUGHER Narrative 04/15/2007 10:50 AM SOLE ROUGHER LEFT SI FUSION IN O.R.15 AT [id number] HRS. Zachary Kirkland MD RAD GENERAL DIAGNOSTIC/RH ABO Rh & Antibody Screen (Type & Screen) (04/15/2007 6:50 AM SOLE ROUGHER) Patholo gist Method Time Signature Crossmatch 04/18/2007 REGIONS Expires ABO/RH(D) O POSITIVE REGIONS Antibody Screen NEGATIVE REGIONS Specimen Anatomical Collection Method Collection Time Receive d Time (Source) Location / / Volume Laterality 04/15/2007 6:50 AM 7 6:56 SOLE ROUGHER AM SOLE ROUGHER Zachary Kirkland MD LAB_1 Performing Organization Address City/State/ZIP Code Phon e Number [address] [address] [place], [place] [phone] documented in this encounter Visit Diagnoses Initial Assessments - Rosina Morgan - 04/17/2007 11:33 AM CST [facility] Evaluation Patient Name: [...] and safety the following equipment is recommended: Auto Finance Sales Rep: patient has Standard shower chair without backrest: patient has Additional Information: The patient had a sacroiliac fusion and is TDWB on the left LE. The patient lives with her and daughters. She states they will be able to assist her at home. The patient was able to complete lower body dressing with a administrative liaison which she used previously at home. Will [...] home MIGUEL Holcomb/Marcos (pager) OT Dept #: [phone] - OT Weekend Pager #: [phone] - [facility] Main #: [phone] ROUGHER Initial Assessments - Jessica Romero - 04/16/2007 2:07 PM CST [facility] Physical Therapy Evaluation Patient Name: Megan [...] minutes Jessica Romero PT Phone number is [phone] Pager: [phone] ROUGHER Initial Assessments - Iván Shin - 04/15/2007 1:09 PM CST [facility] Med-Surg, ICU Initial Assessment Note Patient Name: Megan Wong Date of : 1965 General Information Demographics Admitted from: OR to Reason for admission: SI Fusion [facility] admission date/time: 04/15/2007 5:32 AM Actual arrival on unit: date: 04/15/07 time: 1300 Admitting provider: Zachary G Kirkland. Is the patient's ID band on? [...] age or older OR patient has termite control servicer health problems? [alf health problems include chronic pulmonary or cardiovascular [...] Pain Level:3, Duration: intermittent, Current treatment methods: Advertising Clerk dilaudid, Method of expressing pain: Verbal, Desired [...] there Guardianship issues affecting care planning? No Spiritual/Taoism Is the nurse aware, at present, of any needs or issues for which support from the hospital data transcriber might be helpful to patient and/or family? (e.g. need or desire for spiritual support, difficulty coping, end of life issues, grief/loss, etc.) No. ([facility] makes daily rounds to all congregational patients.) Cultural On the Best Care/Best Experience [...] contributed to the completion of this document. ROUGHER documented in this encounter Active and Recently Administered Medications Times are shown in SOLE ROUGHER. Scheduled Medication Order 04/17/2007 04/18/2007 04/19/2007 calcium [...] Taniya Brewster) 0800 (Given - Provider: Rosalia Schafer)2144 (Given - Provider: Patti Lynch) 0800 (Given [...] at 10/18.) 0715 (Given - Provider: Lane Kwok)1717 (Given - Provider: Ant Thomas) 1-2 Tab, [...] Shin) 1 Tab, Oral, Q4H PRN, Starting Mon 11/5 at 0800, Until Discontin ued documented in this encounter Care Teams Locker Attendant Relationship Specialty Start Date End Date Jose Colin, PCP - General 12/24/03 09/17/08 [address] [place] [address] documented as of this encounter
--- OUTSIDE RECORDS SUMMARY | 2022-05-09 13:43 | XMS_ITS | Encounter Summary ---
:1965 Author Organization [facility] Address [address] [address] Care Team Providers Name Role Phone Jose Colin DO Primary Care Provider [phone] Encounter Details Date Type Department Care Team Description 04/30/2007 Orders Only Health Specialty Rashad ter Radiology [address] [place], [place] [phone] Social History Tobacco Use Types Packs/Day Years [...] ts for this LOW EXT - LT WELDER APPRENTICE COMBINATION procedure are i n the results section. documented in this encounter Results US VASC OMID DOPP LOW EXT - LT (04/30/2007 5:58 PM WELDER APPRENTICE COMBINATION) Anatomical Region Laterality Modality Other Specimen (Source) Anatomical Collection Method Collection Time Re ceived Time Location / / Volume Laterality 04/30/2007 5:58 PM WELDER APPRENTICE COMBINATION Impressions 05/03/2007 8:40 AM WELDER APPRENTICE COMBINATION IMPRESSION: Short segment occlusive thrombus within the left peroneal vein at the level of the mid calf. Results were discussed with Shyla mckeon, nurse practioner on 04/30/07 at 6:20 PM. ??Patient sent to [facility] for further evaluation and treatment. Narrative 05/03/2007 8:40 AM WELDER APPRENTICE COMBINATION EVAL FOR DVT, LT CALF PAIN, # [id number], PAGE SHYLA (MAURICIO) @ PAGER# [phone] ULTRASOUND LEFT LOWER EXTREMITY DUPLEX 1 06/30/06: COMPARISONS: ??None. INDICATIONS: ??Left calf pain. FINDINGS: [...] filedocumented in this encounter Care Teams Manager Supplier Relationship Specialty Start Date End Date Jose Colin DO PCP - General 12/24/03 09/17/08 [address] [place] [address] documented as of this encounter
--- OUTSIDE RECORDS SUMMARY | 2022-05-09 13:43 | XMS_ITS | Encounter Summary ---
:1965 Author Organization [facility] Address [address] [address] Care Team Providers Name Role Phone Jose Colin DO Primary Care Provider [phone] Reason for Visit Reason Comments Suture/Staple Removal from back, incesion to abd w ith no visable sutures, no signs of infections. Encounter Details Date Type Department Care Team Description 03/01/2006 Office Visit [facility] Juanito Panda, Spinal Fusion (Primary Medicine MD Dx) [address] [phone] Social History Tobacco Use Types Packs/Day Years [...] underwent an AP fusion of L5-S1 at [facility] on 02/19/[address] Kirkland. For [...] status documented in this encounter Care Teams Copy Operator Relationship Specialty Start Date End Date Jose Colin DO PCP - General 12/24/03 09/17/08 [address] [place] [address] documented as of this encounter
--- OUTSIDE RECORDS SUMMARY | 2022-05-09 13:43 | XMS_ITS | Encounter Summary ---
:1965 [facility] Address [address] [place] [address] Care Team Providers Name Role Phone Jose Stack DO Primary Care Provider [phone] Reason for Visit Reason Onset Date Comments Refill 02/23/2007 Encounter Details Date Type Department Care Team Description 02/23/2007 Refill [facility] Jose Stack, Refill [address] [facility] [address] [place] [address] [place], [place] [phone] [address] (Wo rk) Social History Tobacco Use [...] reflux documented in this encounter Care Teams Lumber Loader Relationship Specialty Start Date End Date Jose Stack DO PCP - General 12/24/03 09/17/08 [address] [place] [phone] documented as of this encounter
--- OUTSIDE RECORDS SUMMARY | 2022-05-09 13:43 | XMS_ITS | Encounter Summary ---
:1965 [facility] Address [address] [address] Care Team Providers Name Role Phone Jose Colin DO Primary Care Provider [phone] Reason for Visit Reason Onset Date Comments FOLLOW-UP,[facility] 04/22/2007 Encounter Details Date Type Department Care Team Description 04/22/2007 Telephone RH C91 Rosalia Schafer, FOLLOW-UP,[address] [phone] Social History Tobacco Use Types Packs/Day Years Used Date Smoking Tobacco: Never Alcohol Use Standard Drinks/Week Comments Yes 0 (1 standard drink = 0.6 oz pure alcoho l) rarely Sex Assigned at Date Recorded Not on file documented as of this encounter Nursing Notes Rosalia Schafer - 04/22/2007 11:05 AM CST Pt had concerns about noisey three affiliated and difficult dealing with night infantryman She spoke to Soco hernandez this ITORY SALES PROFESSIONAL documented in this encounter Plan of Treatment Not on filedocumented as of this encounter Visit Diagnoses Not on filedocumented in this encounter Care Teams Bakery Demonstrator Relationship Specialty Start Date End Date Jose Colin DO PCP - General 12/24/03 09/17/[address] [place] [address] documented as of this encounter
--- OUTSIDE RECORDS SUMMARY | 2022-05-09 13:43 | XMS_ITS | Encounter Summary ---
:1965 Author Organization [facility] Address [address] [address] Care Team Providers Name Role Phone Dungjosé antonioelbaJose medina Primary Care Provider [phone] Encounter Details Date Type Department Care Team Description 03/22/2006 Office Visit [facility] Huseyin Vogt, Jaqueline Cardiac Surgery PA-C [address] [facility] [address] [place] [address] [place] [address] [phone] (Wo rk) Social History Tobacco Use Types [...] Notes Huseyin Vogt - 04/11/2006 10:28 AM SENIOR QUALITY CONTROL INSPECTOR VISIT DATE: 03/22/2006 I am seeing the [...] 03/22/2006 14:07:09 Transcribed: 03/25/2006 12:40:40 Doc #: [id number] cc:Jose Colin DO, Primary Physician This document was electronically reviewed by Huseyin Vogt PA-C on 04/04/2006 14:26:23. This document was electronically signed by Kleber Galvan MD on 04/11/2006 10:28:00. 1 Page 1 Patient Name: MEGAN CHOI Visit Date: 03/22/2006 CARDIOLOGY [facility] [address] [phone] Page 1 Patient: [facility]GAN CHOI [id number] Date of : 1965 Age: 40Y Visit Date: 03/22/2006 CARDIOLOGY documented in this encounter Nursing Notes 03/22/2006 2:00 PM CDT >> TRINY DELGADO 03/22/2006 2:18 pm Jose Colin DO PT HERE FOR F/U documented in this encounter Plan of Treatment Not on filedocumented as of this encounter Visit Diagnoses Not on filedocumented in this encounter Care Teams Communications Technologist Relationship Specialty Start Date End Date Jose Colin DO PCP - General 12/24/03 09/17/08 [address] [place] [address] documented as of this encounter
--- OUTSIDE RECORDS SUMMARY | 2022-05-09 13:43 | XMS_ITS | Encounter Summary ---
:1965 Author Organization [facility] Address [address], [place] [address] Care Team Providers Name Role Phone Jose Colin DO Primary Care Provider [phone] Encounter Details Date Type Department Care Team Description 05/03/2007 Anticoagulation [facility] Internal Wilda Burch, DVT ( Deep Venous Thrombosis) (Primary Dx); Medicine RN GERD (Gastroesophageal Reflux Disease) [address] [place] [address] [facility] [phone] [address] [place], [place] [phone] Social History Tobacco Use Types Packs/Day Years Used Date Smoking Tobacco: Never Alcohol Use Standard Drinks/Week Comments Yes 0 (1 standard drink = 0.6 oz pure alcoho l) rarely Sex Assigned at Date Recorded Not on file documented as of this encounter Progress Notes Jose Colin - 06/20/2007 9:01 AM CST Agree with careplan. Jose Colin DO ATOR MECHANIC APPRENTICE Wilda Anand - 05/03/2007 2:40 PM CST See Anticoagulation Flowsheet for details. Wilda Burch RN ATOR MECHANIC APPRENTICE documented in this encounter Plan of Treatment Not on filedocumented as of this encounter Visit Diagnoses Diagnosis DVT (deep venous thrombosis) (C) - Argelia bravo Acute venous embolism and thrombosis of unspecified deep vessels of lower extremity GERD (gastroesophageal reflux disease) Esophageal reflux documented in this encounter Care Teams Bench Tool Maker Relationship Specialty Start Date End Date Jose Colin, PCP - General 12/24/03 09/17/08 [address] [place] [address] documented as of this encounter
--- OUTSIDE RECORDS SUMMARY | 2022-05-09 13:43 | XMS_ITS | Encounter Summary ---
:1965 [facility] Address [address], [place] [address] Care Team Providers Name Role Phone Jose Colin DO Primary Care Provider [phone] Reason for Visit Reason Comments Careplan: Anticoagulation DVT Encounter Details Date Type Department Care Team Description 05/01/2007 Careplan [facility] Internal Thea Bella R N Careplan: Anticoagulation Medicine [facility] (DVT) [address] [place] [address] [address] [phone] [place], [place] [phone] Social History Tobacco Use Types Packs/Day Years Used Date Smoking Tobacco: Never Alcohol Use Standard Drinks/Week Comments Yes 0 (1 standard drink = 0.6 oz pure alcoho l) rarely Sex Assigned at Date Recorded Not on file documented as of this encounter Progress Notes Brigido Anand - 05/03/2007 8:23 AM ART FRAMING MANAGER Addended by: BRIGIDO ROGERS on: 05/03/2007 8:23:29 AM Modules accepted: Orders FRAMING MANAGER Thea Bella - 05/01/2007 2:54 PM CST Anticoagulation initiation order for Megan Choi. Diagnoses: DVT. Therapeutic range: 2 - 3. Warfarin pill strength: 5 mg. Initiation date ( AKA date when started on warfarin ): 04/30/07. On enoxaparin: YES Length of treatment: 6 monthes or until directed by PCP. Comments: none Thea Bella RN 05/01/2007 2:53 PM FRAMING MANAGER documented in this encounter Plan of Treatment Not on filedocumented as of this encounter Visit Diagnoses Diagnosis DVT (deep venous thrombosis) ([facility]) - [facility] Acute venous embolism and thrombosis of unspecified deep vessels of lower extremity documented in this encounter Care Teams Broomcorn Press Feeder Relationship Specialty Start Date End Date Jose Colin DO PCP - General 12/24/03 09/17/[address] [place] [place] [address] documented as of this encounter
--- OUTSIDE RECORDS SUMMARY | 2022-05-09 13:43 | XMS_ITS | Encounter Summary ---
:1965 [facility] Address [address], [place] [address] Care Team Providers Name Role Phone Jose Colin DO Primary Care Provider [phone] Encounter Details Date Type Department Care Team Description 05/01/[address] [facility] Internal Thea Bella, DVT (De ep Venous Medicine RN Thrombosis) (Primary [address] [facility] [place]x) [place] [address] CLINIC [phone] [address] [place], [place] [phone] Social History Tobacco Use Types Packs/Day Years [...] venous thrombosis) ([facility]) - [facility] Acute venous embolism and thrombosis of unspecified deep vessels of lower extremity documented in this encounter Care Teams Preschool Adviser Relationship Specialty Start Date End Date Jose Colin DO PCP - General 12/24/03 09/17/08 [address] [place] [address] documented as of this encounter
--- OUTSIDE RECORDS SUMMARY | 2022-05-09 13:43 | XMS_ITS | Encounter Summary ---
:1965 [facility] Address [address], [place] [address] Care Team Providers Name Role Phone MoJose medina DO Primary Care Provider [phone] Reason for Referral Specialty Diagnoses / Procedures Referred By Contact Refer red To Contact Shyla Perdomo AP RN, INDUCTION COORDINATION ENGINEER [address] [place] [address] Referral ID Status Reason Start Date Expiration Date Visits Requ ested Visits Authorized SORTER Reason for Visit Reason Comments LEG PAIN Left Calf Encounter Details Date Type Department Care Team Description 04/30/2007 Office Visit [facility] Internal Shyla Perdomo, Claire P [place] (Primary Dx) Medicine MID LEVEL PROVIDER, INDUCTION COORDINATION ENGINEER [address] [facility] [address] [place] [address] [place], [place] [phone] Social History Tobacco Use Types Packs/Day Years Used Date Smoking Tobacco: Never Alcohol Use Standard Drinks/Week Comments Yes 0 (1 standard drink = 0.6 oz pure alcoho l) rarely Sex Assigned at Date Recorded Not on file documented as of this encounter Last Filed Vital Signs Vital Sign Reading Time Taken Comments Blood Pressure 118/60 04/30/2007 3:43 PM TILE SORTER Pulse 76 04/30/2007 3:43 PM TILE SORTER Temperature 36.2 ??C (97.2 ??F) 04/30/2007 3:43 PM TILE SORTER Respiratory Rate 24 04/30/2007 3:43 PM TILE SORTER Oxygen Saturation - - Inhaled Oxygen Concentration [...] 04/30/2007 This chart has been electronically signed. SORTER documented in this encounter Plan of Treatment Not on filedocumented as of this encounter Visit Diagnoses Diagnosis Calf pain - Primary Pain in limb documented in this encounter Care Teams Livestock Buyer Relationship Specialty Start Date End Date Jose Colin DO PCP - General 12/24/03 4 [address] [place] [address] documented as of this encounter
--- OUTSIDE RECORDS SUMMARY | 2022-05-09 13:43 | XMS_ITS | Encounter Summary ---
:1965 Author Organization [facility] Address [address] [address] Care Team Providers Name Role Phone Unassigned, Provider Primary Care Provider Unavailable Encounter Details Date Type Department Care Team Description 02/19/2006 Outside Hospital External to Rissa Dhillon O[facility] RATIVE RE[facility] Social History Tobacco Use Types Packs/Day [...] on filedocumented in this encounter Care Teams Shoe Treer Relationship Specialty Start Date End Date Unassigned, Provider PCP - General 09/18/[address] [place] [address] documented as of this encounter
--- OUTSIDE RECORDS SUMMARY | 2022-05-09 13:43 | XMS_ITS | Encounter Summary ---
:1965 Author Organization [facility] Address [address] [address] Care Team Providers Name Role Phone DungJose gonzalez Jerrell DO Primary Care Provider [phone] Reason for Visit Reason Comments DVT(DEEP VEIN THROMBOSIS) left Encounter Details Date Type Department Care Team Description 04/30/2007 [facility] [address] [facility] DVT (Deep Venous [address] Thrombosis) (Primary Dx) [place] [address] Social History Tobacco Use Types Packs/Day Years Used Date Smoking Tobacco: Never Alcohol Use Standard Drinks/Week Comments Yes 0 (1 standard drink = 0.6 oz pure alcoho l) rarely Sex Assigned at Date Recorded Not on file documented as of this encounter Last Filed Vital Signs Vital Sign Reading Time Taken Comments Blood Pressure 120/76 04/30/2007 7:19 PM MATRIX SUPERVISOR Pulse 80 04/30/2007 7:19 PM MATRIX SUPERVISOR Temperature 36.7 ??C (98 ??F) 04/30/2007 7:19 PM MATRIX SUPERVISOR Respiratory Rate 16 04/30/2007 7:19 PM MATRIX SUPERVISOR Oxygen Saturation - - Inhaled Oxygen Concentration - - Weight - - Height - - Body Mass Index - - documented in this encounter Patient Instructions Patient Xvvecvwhdxvh05/20/2007 7:46 PM MATRIX SUPERVISOR Lovenox (Heparin) 90mg every 12 hours until told to stop Warfarin 5mg a day 04/30, 05/01, 05/02 on 05/03 check with nurse for dose INR (lab test) 05/03 AM Goal for INR 2-3 IX SUPERVISOR documented in this encounter Progress Notes Chirag Braxton - 04/30/2007 7:35 PM CST This office note has been dictated. Chirag Braxton MD IX SUPERVISOR Chirag Braxton - 04/30/2007 12:00 AM MATRIX SUPERVISOR Chief complaint: I have a vein [...] of Lovenox in the clinic. P cc: IX SUPERVISOR documented in this encounter Nursing Notes 04/30/2007 6:50 PM CST >> Sudha Nicolas LPN jeramie Apr 30, 2007 8:11 PM Witness pt administering [...] DVT (Deep Venous Resul ts for this MATRIX SUPERVISOR Thrombosis) procedure are i n the results section . documented in this encounter Results INR/PROTIME (04/30/2007 8:09 PM MATRIX SUPERVISOR) P athologist Signature Protime 13.0 12.0 - 14.5 [facility] CommerceGALLUP INDIAN MEDICAL CENTERDitech Communications sec Coumadin No [facility] INR 0.9 [facility] Specimen Anatomical Collection Method Collection Time Receive d Time (Source) Location / / Volume Laterality 04/30/2007 8:09 PM 7 8:10 MATRIX SUPERVISOR PM MATRIX SUPERVISOR Chirag Braxton MD LAB_1 Performing Organization Address City/State/ZIP Code Phon e Number [facility] [phone] [facility] [address] [address] documented in this encounter Visit Diagnoses Diagnosis DVT (deep venous thrombosis) ([facility]) - Argelia bravo Acute venous embolism and thrombosis of unspecified deep vessels of lower extremity documented in this encounter Care Teams Roller Coaster Operator Relationship Specialty Start Date End Date Jose Colin DO PCP - General 12/24/03 4 [address] [place] [address] documented as of this encounter
--- OUTSIDE RECORDS SUMMARY | 2022-05-09 13:44 | XMS_ITS | Encounter Summary ---
:1965 Author Organization [facility] Address [address] [place] [address] Care Team Providers Name Role Phone Jose Colin DO Primary Care Provider [phone] Reason for Referral Specialty Diagnoses / Procedures Referred By Contact Refer red To Contact Yun Flynn MD [address] [place] [address] Referral ID Status Reason Start Date Expiration Date Visits Requ ested Visits Authorized Reason for Visit Reason Comments Period Problems Encounter Details Date Type Department Care Team Description 10/02/2005 Office Visit [facility] Obstetrics and Yun Flynn, EX CESSIVE MENSTRUATION (Primary Dx); Gynecology PREVENTIVE CARE EXAM [address] [place] [address] Social History Tobacco Use Types [...] Body Mass Index 32.59 07/13/2005 11:59 AM CS ASSOCIATE documented in this encounter Progress Notes 10/02/2005 [...] Does not get light headed. Pap negative 03. See history as above. Review Of Systems: [...] the same time. Check cholesterol and glucose. LOCATION DIRECTOR ultrasound with SIS as indicated. Reviewed options. [...] Type Priority Associated Diagnoses Order S chedule PELVIC/LOCATION DIRECTOR ULTRASOUND Referral Routine Excessive Menstruat ion Ordered: [...] <200 mg/dl [facility] Triglyceride 95 <200 mg/dl [facility] HDL 46 >35 mg/dl [facility] LDL, Calc. 123 mg/dl [facility] Hours Fasting 12 hours [facility] Specimen Anatomical Collection Method Collection Time Receive d Time (Source) Location / / Volume Laterality 10/07/2005 8:33 AM 6 8:34 CDT AM CDT Yun Flynn MD LAB_1 Performing Organization Address City/[facility] Phon e Number [email or web address] [phone] [facility] [address] [place] [phone] TSH, SENSITIVE (WITH REFLEX) (10/07/2005 8:32 AM CDT) athologist Signature TSH, with 1.80 0.3 - 5.0 [facility] Reflex uIU/ml Specimen Anatomical Collection Method Collection Time Receive d Time (Source) Location / / Volume Laterality 10/07/2005 8:32 AM 6 8:33 CDT AM CDT Yun Flynn MD LAB_1 Performing Organization Address [facility] Phon e Number [employer] [phone] [facility] [address] [place] [phone] (ABNORMAL) GLUCOSE - FASTING > 8 HRS FASTING (V77.1) (10/07/2005 8:31 AM CDT) [facility] Time Signature Glucose 111 (H) 70 - 100 [facility] mg/dl Hours Fasting 12 hours [facility] Specimen Anatomical Collection Method Collection Time Receive d Time (Source) Location / / Volume Laterality 10/07/2005 8:31 AM 6 8:32 CDT AM CDT Yun Flynn MD LAB_1 Performing Organization Address City/State/ZIP Code Phon e Number [facility] [phone] [facility] [address] [phone] PAP TEST, ROUTINE (10/02/2005 12:00 AM CDT) Component Value Ref Test Analysis Performed At [facility] gist Range Method Time Signature Cytology, Pap (NOTE) [facility] Search Developer Cytology Report Patient Name: PADMINI CHOI Taken: [...] Signed Out By ? Kelly Elmore MD ([id number]) Rakel Valle, ??CT (ASCP) ?Pap Smear History ?Date of Last Menstrual Period: ? 09/22/05 ?Contraceptive History: ?Not Stated/Unknown ?Other Clinical Conditions: ?LAST PAP: N/A HPV reflex testing requested with interpretation of ASCUS ? Specimen (Source) Anatomical Collection Method Collection Time Re ceived Time Location / / Volume Laterality 10/02/2005 10/06/2005 9:58 AM CDT Yun Flynn MD LAB_1 Performing Organization Address City/[facility] Phon e Number [address] [address] [place], [place] [phone] documented in this encounter Visit Diagnoses Diagnosis Excessive or frequent menstruation - [facility] Routine general medical examination at [facility] Routine general medical examination at a [facility] care facility documented in this encounter Care Teams Loss Prevention Coordinator Relationship Specialty Start Date End Date Jose Colin DO PCP - General 12/24/03 09/17/08 [address] [place] [address] documented as of this encounter
--- OUTSIDE RECORDS SUMMARY | 2022-05-09 13:44 | XMS_ITS | Encounter Summary ---
:1965 Author Organization [facility] Address [address] [place] [address] Care Team Providers Name Role Phone Jose Colin DO Primary Care Provider [phone] Encounter Details Date Type Department Care Team Description 08/26/2005 Correspondence None Unknown, Physici an CONSENT AND RELEASE [address] [place] [address] (Wo rk) Social History Tobacco Use Types Packs/Day Years Used Date Smoking Tobacco: Never Alcohol Use Standard Drinks/Week Comments Yes 0 (1 standard drink = 0.6 oz pure alcoho l) rarely Sex Assigned at Date Recorded Not on file documented as of this encounter Progress Notes Unknown, Physician - 08/26/2005 12:00 AM POULTICE MACHINE OPERATOR documented in this encounter Plan of Treatment Not on filedocumented as of this encounter Visit Diagnoses Not on filedocumented in this encounter Care Teams Hacksaw Inspector Relationship Specialty Start Date End Date Jose Colin DO PCP - General 12/24/03 09/17/08 [address] [place] [address] documented as of this encounter
--- OUTSIDE RECORDS SUMMARY | 2022-05-09 13:44 | XMS_ITS | Encounter Summary ---
:1965 Author Organization [facility] Address [address], [place] [address] Care Team Providers Name Role Phone DixieJose Jerrell BOOGIE Primary Care Provider [phone] Encounter Details Date Type Department Care Team Description 11/07/2005 Hospital Encounter [facility] Day [facility]; [facility] MD Yun ENDOMETRIAL POLYP [address] [place] [address] Social History Tobacco Use Types [...] of this encounter Procedure Notes Brandt Jocelyn L - 11/07/2005 8:32 PM CDT DATE OF [...] 11/07/2005 20:32:53 Transcribed: 11/07/2005 22:32:42 Doc #: [id number] cc: Yun Flynn MD, Attending Physician Jose Colin DO, Primary Physician DO NOT SIGN UNLESS PRESENT FOR PROCEDURE I attest that I was present for and participated in the am portions of this procedure(s) in compliance with the [facility] Care Financing Administration Teaching Physician Guidelines. Signed Date [facility] Staff Physician This document was electronically signed by Jocelyn Carlton MD on 11/12/2005 15:48:07. ? 1 Page 2 Patient Name: PADMINI CHOI Visit Date: 11/07/2005 OUTPATIENT OPERATIVE REPORT CONFIDENTIAL MEDICAL RECORD [address] [phone] Page 1 Patient: PADMINI CHOI [id number] Date of : 1965 Age: 40Y Visit Date: 11/07/2005 OUTPATIENT OPERATIVE REPORT documented in this encounter Miscellaneous Notes OR Nursing - Emmie Burch - 11/07/2005 9:44 AM CDT [facility] Progress Note Patient Name: Padmini [...] Results SURGICAL PATH (11/07/2005 12:00 AM CDT) [facility] gist Method Time Signature 9911 (NOTE) [...] trium. ?2. ??Negative for hyperplasia and malignancy. [place]/11/08/2005 Electronically Signed Out By ? Gudelia Jaffe MD ([id number]) Procedures/Addenda Clinical History Excessive bleeding Gross Description [...] on six slides. man/11/08/2005 Gudelia Jaffe MD ([id number]) Specimen (Source) Anatomical Location Collection Method / Collectio n Time Received Time / Laterality Volume 11/07/2005 11/07/2005 Yun Flynn MD LAB_1 Performing Organization Address City/State/ZIP Code Phon e Number [address] [address] [place], [place] [phone] documented in this encounter Visit Diagnoses Diagnosis [...] Sun11/07/05 documented in this encounter Care Teams Superintendent Job Relationship Specialty Start Date End Date Jose Colin DO PCP - General 12/24/03 09/17/08 [address] [place] [address] documented as of this encounter
--- OUTSIDE RECORDS SUMMARY | 2022-05-09 13:44 | XMS_ITS | Encounter Summary ---
:1965 [facility] Address [address] [place] [address] Care Team Providers Name Role Phone Jose Colin DO Primary Care Provider [phone] Reason for Visit Reason Comments Post Op Exam Encounter Details Date Type Department Care Team Description 11/20/2005 Office Visit [facility] Obstetrics and Yun Varma EN DOMETRIAL POLYP (Primary Dx); Gynecology EXCESSIVE MENSTRUATION [address] [place] [address] Social History Tobacco Use Types [...] course. PLAN: Follow-up when annual exam due. Ke menstrual calendar. Call or come in for abnormal bleeding. Yun Varma MD documented in this encounter Nursing Notes 11/20/2005 3:00 PM CDT >> ALLISON HERRERA 11/20/2005 3:12 pm LINING MACHINE OPERATOR POST OPERATIVE NURSE NOTE Megan Choi presents for post operative follow up. Date of surgery:11/07/05 Procedure: hysteroscopy dc Surgeon: dr varma PAIN ASSESSMENT: Ratin Duration: Not applicable Description: Cramping Connor/sutures removed: NO Fever: NO Is home health [...] menstruation documented in this encounter Care Teams Uncrater Relationship Specialty Start Date End Date Jose Colin DO PCP - General 12/24/03 09/17/08 [address] [place] [address] documented as of this encounter
--- OUTSIDE RECORDS SUMMARY | 2022-05-09 13:44 | XMS_ITS | Encounter Summary ---
:1965 Author Organization [facility] Address [address], [place] [address] Care Team Providers Name Role Phone Unassigned, Provider Primary Care Provider Unavailable Encounter Details Date Type Department Care Team Description 10/31/2005 Orders Only [facility] Unknown, Physician [address] [facility] [address] [place] [address] [place] [address] [phone] (Wo rk) Social History Tobacco Use Types [...] on filedocumented in this encounter Care Teams Title Search Manager Relationship Specialty Start Date End Date Unassigned, Provider PCP - General 09/18/[address] [place] [address] documented as of this encounter
--- OUTSIDE RECORDS SUMMARY | 2022-05-09 13:44 | XMS_ITS | Encounter Summary ---
:1965 Author Organization [facility] Address [address], [place] [address] Care Team Providers Name Role Phone Jose Colin DO Primary Care Provider [phone] Reason for Visit Reason Onset Date Comments Medication Questions 10/16/2005 Encounter Details Date Type Department Care Team Description 10/16/2005 Telephone [facility] Obstetrics and Yun Flynn MD Medication Questions Gynecology [address] [place] [address] Social History Tobacco Use Types Packs/Day Years Used Date Smoking Tobacco: Never Alcohol Use Standard Drinks/Week Comments Yes 0 (1 standard drink = 0.6 oz pure alcoho l) rarely Sex Assigned at Date Recorded Not on file documented as of this encounter Nursing Notes 10/16/2005 11:59 PM CDT >> AKBAR HOOD Mon October 16, 2005 1:24 PM Gave pt provera [...] on filedocumented in this encounter Care Teams French Professor Relationship Specialty Start Date End Date Jose Colin DO PCP - General 12/24/03 09/17/08 [address] [place] [address] documented as of this encounter
--- OUTSIDE RECORDS SUMMARY | 2022-05-09 13:44 | XMS_ITS | Encounter Summary ---
:1965 Author Organization [facility] Address [address], [place] [address] Care Team Providers Name Role Phone Dungjosé antonioelbaJose medina DO Primary Care Provider [phone] Encounter Details Date Type Department Care [...] Comments Blood Pressure 123/62 07/13/2005 2:00 PM NEEDLE LOOM TENDER Pulse 66 07/13/2005 2:00 PM NEEDLE LOOM TENDER Temperature 36.6 ??C (97.8 ??F) 07/13/2005 11:59 AM NEEDLE LOOM TENDER Respiratory Rate 16 07/13/2005 2:00 PM NEEDLE LOOM TENDER Oxygen Saturation 100% 07/13/2005 2:00 PM NEEDLE LOOM TENDER Inhaled Oxygen Concentration - - Weight 82.6 kg (182 lb 1.6 oz) 07/13/2005 11:59 AM NEEDLE LOOM TENDER Height 160 cm (5' 3) 07/13/2005 11:59 AM NEEDLE LOOM TENDER Body Mass Index 32.26 07/13/2005 11:59 AM NEEDLE LOOM TENDER documented in this encounter Medications at Time [...] Notes Clark Jose - 07/13/2005 12:00 AM NEEDLE LOOM TENDER DATE OF SURGERY: July 13, 2005 PREOPERATIVE [...] Jose MD Transcribed: 07/14/2005 08:17:07 Doc #: [id number] cc: Jose Colin DO, Referring/Primary DO NOT SIGN UNLESS PRESENT FOR PROCEDURE I attest that I was present for and participated in the ma portions of this procedure(s) in compliance with the Health Care Financing Administration Teaching Physician Guidelines. Signed Date [facility] Staff Physician This document was electronically signed by Clark Jose MD on 07/20/2005 08:50:03. 1 Page 1 Patient Name: MEGAN CHOI Visit Date: 07/13/2005 OUTPATIENT OPERATIVE REPORT CONFIDENTIAL MEDICAL RECORD [address] [phone] Page 1 Patient: MEGAN CHOI [id number] Date of : 1965 Age: 40Y Visit Date: 07/13/2005 OUTPATIENT OPERATIVE REPORT LE LOOM TENDER documented in this encounter Plan of Treatment Not on filedocumented as of this encounter Procedures Procedure Name Priority Date/Time Associated Diagnosis Comme nts EXCISION MASS FINGER OR HPSDS 07/13/2005 12:40 PM NEEDLE LOOM TENDER HAND OR WRIST Case Notes right wrist ganglion cyst ex cision SURGICAL PATH Routine 07/13/2005 12:00 AM NEEDLE LOOM TENDER Res ults for this procedure are in the results section . documented in this encounter Results SURGICAL PATH (07/13/2005 12:00 AM NEEDLE LOOM TENDER) [facility] gist Method Time Signature 9911 (NOTE) [facility] Surgical Final Report Patient Name: MEGAN CHOI Taken: 07/13/2005 Received: 07/13/2005 Reported: 07/14/2005 Physician(s): CLARK JOSE ([id number]) ? Final Pathologic Diagnosis Soft tissue, right wrist, excision ??Ganglion cyst. cab/07/14/2005 Electronically Signed Out By ? Sudha Mahoney MD ([id number]) Procedures/Addenda Clinical History Cyst Gross Description The specimen is received in formalin and is labeled cyst rig ht wrist. ?? The specimen consists of a 1 cm x 0.6 cm x 0.4 cm white fibromembranous cyst that is filled with a scant amount of g elatinous material. ??The specimen is serially sectioned and entirely submitted in one (1) cassette. ??mb/nancy va07/14/2005 Microscopic Description Microscopic examination is performed on one (1) slide. [facility]/07/14/2005 Sudha Mahoney MD ([id number]) Specimen (Source) Anatomical Location Collection Method / Collectio n Time Received Time / Laterality Volume 07/13/2005 07/13/2005 Clark Jose MD LAB_1 Performing Organization Address City/State/ZIP Code Phon e Number [address] [address] [place], [place] [phone] documented in this encounter Visit Diagnoses Not on filedocumented in this encounter Administered Medications Inactive Administered Medications - up to 3 most recent administrations Medication Order MAR Action Action Date Dose Rate Site BUPIVACAINE HCL 0.5 % SOLN Given 07/13/2005 1:19 PM NEEDLE LOOM TENDER 6 mL Injection, Starting on Elda 07/13/05 DEXAMETHASONE SODIUM PHOSPHATE 4 MG/ML IJ Given 07/13/2005 3:16 PM NEEDLE LOOM TENDER 4 mg Port SOLN 4 mg, Intravenous, Starting on Elda 07/13/05, Until Elda 07/13/05 at 1731 FENTANYL CITRATE 0.05 MG/ML IJ SOLN Given 07/13/2005 2:02 PM NEEDLE LOOM TENDER 50 mcg Port 50 mcg, Intravenous, Starting on Elda 07/13/05, Until Elda 07/13/05 at 1731 Given 07/13/2005 1:48 PM NEEDLE LOOM TENDER 50 mcg Port KETOROLAC TROMETHAMINE 30 MG/ML IJ SOLN Given 07/13/2005 1:49 PM NEEDLE LOOM TENDER 30 mg Port 30 mg, Intravenous, Starting on Elda 07/13/05, Until Elda 07/13/05 at 1731 METOCLOPRAMIDE HCL 5 MG/ML IJ SOLN Given 07/13/2005 3:13 PM NEEDLE LOOM TENDER 10 mg Port 10 mg, Intravenous, Starting on Elda 07/13/05, Until Elda 07/13/05 at 1731 OXYCODONE-ACETAMINOPHEN Given 07/13/2005 1:45 PM NEEDLE LOOM TENDER 1 Tablet 1 Tablet, Oral, Starting on Elda 07/13/05, Until Elda 07/13/05 at 1731 ZOFRAN 2MG/ML IV SOLN Given 07/13/2005 3:05 PM NEEDLE LOOM TENDER 4 mg Port 4 mg, Intravenous, Starting on Elda 07/13/05 documented in this encounter Care Teams Lpc Relationship Specialty Start Date End Date Jose Colin DO PCP - General 12/24/03 09/17/08 [address] [place] [address] documented as of this encounter
--- OUTSIDE RECORDS SUMMARY | 2022-05-09 13:44 | XMS_ITS | Encounter Summary ---
:1965 Author Organization [facility] Address [address], [place] [address] Care Team Providers Name Role Phone DungJose gonzalez Primary Care Provider [phone] Encounter Details Date Type Department Care Team Description 07/19/2005 Office Visit [facility] Plastic Aravind Jose MD GANGLION NOS Surgery [address] [place] [address] Social History Tobacco Use Types Packs/Day Years Used Date Smoking Tobacco: Never Alcohol Use Standard Drinks/Week Comments Yes 0 (1 standard drink = 0.6 oz pure alcoho l) rarely Sex Assigned at Date Recorded Not on file documented as of this encounter Last Filed Vital Signs Vital Sign Reading Time Taken Comments Blood Pressure 115/65 07/19/2005 2:30 PM PHARMACY AIDE Pulse 74 07/19/2005 2:30 PM PHARMACY AIDE Temperature - - Respiratory Rate 12 07/19/2005 2:30 PM PHARMACY AIDE Oxygen Saturation - - Inhaled Oxygen [...] a return to work notice. P cc: MACY AIDE Aravind Jose - 07/19/2005 12:00 AM PHARMACY AIDE MACY AIDE documented in this encounter Nursing Notes 07/19/2005 [...] unspecified documented in this encounter Care Teams University Lecturer Relationship Specialty Start Date End Date Jose Colin DO PCP - General 12/24/03 09/17/[address] [place] [address] documented as of this encounter
--- OUTSIDE RECORDS SUMMARY | 2022-05-09 13:44 | XMS_ITS | Encounter Summary ---
:1965 Author Organization [facility] Address [address] [place] [address] Care Team Providers Name Role Phone Jose Colin DO Primary Care Provider Reason for Visit Reason Comments PRE-OP EXAM Encounter Details Date Type Department Care Team Description 02/13/2006 Office Visit [facility] Internal Dixie Preoperativ e Examination (Primary Dx); Medicine Jose Allan DO Lumbar Disc Disease; [address] [facility] [address] GERD (Gastroesophageal Reflux Disease); [place] [address] [facility] [phone] [address] Social History Tobacco Use Types Packs/Day [...] for surgery. She is[facility] Zachary Kirkland. 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 Social History Main Topics Tobacco [...] unspecified documented in this encounter Care Teams Powerhouse Electrician Apprentice Relationship Specialty Start Date End Date Jose Colin DO PCP - General 12/24/03 09/17/08 [address] [place] [address] documented as of this encounter
--- OUTSIDE RECORDS SUMMARY | 2022-05-09 13:44 | XMS_ITS | Encounter Summary ---
:1965 Author Organization [facility] Address [address], [place] [address] Care Team Providers Name Role Phone DungJose gonzalez Primary Care Provider [phone] Encounter Details Date Type Department Care Team Description 08/09/2005 Office Visit [facility] Plastic Aravind Jose MD GANGLION NOS Surgery [address] [place] [address] Social History Tobacco Use Types Packs/Day Years [...] on a p.r.n. basis only. P cc: ITY CONTROL TECH RAW MATERIALS documented in this encounter Nursing Notes 08/09/2005 [...] bid, Disp: 1 stock, Rfl: 1 Megan Mayanrd Steph is a 40 yr old female S/P (R) ganglion cyst removal 07/13/05. sutures removed 07/19/05. states she has some stinging when she uses her fingers too much. she has been wearing her splint./Brigido Sloan LPN documented in this encounter Plan of Treatment Not on filedocumented as of this encounter Visit Diagnoses Diagnosis Ganglion, unspecified documented in this encounter Care Teams Petrophysicist Relationship Specialty Start Date End Date Jose Colin DO PCP - General 12/24/03 09/17/08 [address] [place] [address] documented as of this encounter
--- OUTSIDE RECORDS SUMMARY | 2022-05-09 13:44 | XMS_ITS | Encounter Summary ---
:1965 [facility] Address [address] [place] [address] Care Team Providers Name Role Phone Jose Colin DO Primary Care Provider [phone] Reason for Visit Reason Onset Date Comments QUESTIONS, GENERAL 09/26/2005 Encounter Details Date Type Department Care Team Description 09/26/2005 [facility]phone [facility] Jose Allan DO [address] [place], [place] [address] [place], [place] [phone] [address] Social History Tobacco Use Types Packs/Day Years Used Date Smoking Tobacco: Never Alcohol Use Standard Drinks/Week Comments Yes 0 (1 standard drink = 0.6 oz pure alcoho l) rarely Sex Assigned at Date Recorded Not on file documented as of this encounter Nursing Notes 09/26/2005 11:59 PM CDT >> BRIGIDO JERMAN ROGERS SunSep 26, 2005 8:55 AM Pt [...] on filedocumented in this encounter Care Teams Lining Brusher Relationship Specialty Start Date End Date Jose Colin DO PCP - General 12/24/03 09/17/08 [address] [place] [address] documented as of this encounter
--- OUTSIDE RECORDS SUMMARY | 2022-05-09 13:44 | XMS_ITS | Encounter Summary ---
:1965 Author Organization [facility] Address [address] [place] [address] Care Team Providers Name Role Phone Jose Colin DO Primary Care Provider [phone] Encounter Details Date Type Department Care Team Description 11/20/2005 Correspondence None Unknown, Physici an CONSENT AND RELEASE [address] [place] [address] (Wo rk) Social History Tobacco [...] on filedocumented in this encounter Care Teams Material Processor Relationship Specialty Start Date End Date Jose Colin DO PCP - General 12/24/03 09/17/[address] [place] [address] documented as of this encounter
--- OUTSIDE RECORDS SUMMARY | 2022-05-09 13:44 | XMS_ITS | Encounter Summary ---
:1965 Author Organization [facility] Address [address], [place] [address] Care Team Providers Name Role Phone Jose Colin DO Primary Care Provider [phone] Encounter Details Date Type Department Care Team Description 10/31/2005 Notes/Orders [facility] Internal [place], PREOP EXAM OTHER Medicine Jose Allan DO SPECIFIED [address] [facility] [address] [place] [address] [place], [place] [phone] [address] Social History Tobacco Use Types Packs/Day [...] TUBE & HOLD (10/31/2005 4:11 PM CDT) [facility] gist Method Time Signature Draw and Hold Specimen [facility] Available Based on Sample Stability Specimen Anatomical Collection Method Collection Time Receive d Time (Source) Location / / Volume Laterality 10/31/2005 4:11 PM 6 4:12 CDT PM CDT Jose Colin DO LAB_1 Performing Organization Address [facility] Phon e Number [facility] [phone] [facility] [address] [place] [address] HEMOGRAM/PLTS/DIFF (10/31/2005 4:11 PM CDT) P athologist Signature WBC 7.7 4.0 - 11.0 [facility] k/ul RBC 4.27 4.0 - 5.2 [facility] M/ul Hemoglobin 13.2 12.0 - [facility] 16.0 g/dl HCT 37.8 36.0 - [facility] 46.0 % MCV 88.5 80 - 100 [facility] fl MCH 30.9 26 - 34 pg [facility] MCHC 34.9 32 - 36 % [facility] RDW 13.7 11.5 - [facility] 14.5 % Platelets 241 150 - 450 [facility] k/ul PMN/Band 56 43 - 72 % [facility] Lymph 34 17 - 43 % [facility] Upson 7 4 - 12 % [facility] Eos 2 0 - 8 % [facility] Baso 1 0 - 1 % [facility] Neutrophil 4.3 1.8 - 7.7 [facility] Absolute k/ul Lymph Absolute 2.7 1.0 - 4.8 [facility] k/ul [place] Absolute 0.6 0.1 - 0.7 [facility] k/ul Eos Absolute 0.2 0.0 - 0.5 [facility] k/ul Baso Absolute 0.1 0.0 - 0.2 [facility] k/ul Specimen Anatomical Collection Method Collection Time Receive d Time (Source) Location / / Volume Laterality 10/31/2005 4:11 PM 6 4:12 CDT PM CDT Jose Colin DO LAB_1 Performing Organization Address [facility] Phon e Number [facility] [phone] [facility] [address] [place] [address] documented in this encounter Visit Diagnoses Diagnosis Other specified pre-operative examinatio n documented in this encounter Care Teams Transfill Technician Relationship Specialty Start Date End Date Jose Colin DO PCP - General 12/24/03 09/17/08 [address] [place] [address] documented as of this encounter
--- OUTSIDE RECORDS SUMMARY | 2022-05-09 13:44 | XMS_ITS | Encounter Summary ---
:1965 Author [facility] Address [address], [place] [address] Care Team Providers Name Role Phone Jose Colin DO Primary Care Provider [phone] Encounter Details Date Type Department Care Team Description 10/04/2005 Office Visit [facility] crop production advisor Ultra sound IRREGULAR MENSTRUATION; [address] [place] [facility] S ENDOMETRIAL POLYP [place], [place] [id number] Social History Tobacco Use Types Packs/Day Years [...] uteri documented in this encounter Care Teams Mid Level Net Developer Relationship Specialty Start Date End Date Jose Colin DO PCP - General 12/24/03 09/17/08 [address] [place] [address] documented as of this encounter
--- OUTSIDE RECORDS SUMMARY | 2022-05-09 13:44 | XMS_ITS | Encounter Summary ---
:1965 Author Organization [facility] Address [address], [place] [address] Care Team Providers Name Role Phone Dixie Jose Jerrell BOOGIE Primary Care Provider [phone] Encounter Details Date Type Department Care Team Description 11/07/2005 Surgery Yun Flynn MD DILATATIO N AND CURETTAGE WITH HYSTEROSCOPY Social History Tobacco [...] of this encounter Procedure Notes Brandt Jocelyn Marcos - 11/07/2005 8:32 PM CDT DATE OF [...] 11/07/2005 20:32:53 Transcribed: 11/07/2005 22:32:42 Doc #: [id number] cc: Yun Flynn MD, Attending Physician Jose [...] 11/07/2005 OUTPATIENT OPERATIVE REPORT [facility] RECORD [address] [address] Page 1 Patient: PADMINI CHOI Location: [facility] HPN: [id number] Date of : 1965 Age: 40Y Visit Date: 11/07/2005 OUTPATIENT OPERATIVE REPORT documented in this encounter Miscellaneous Notes OR Nursing - Emmie Burch - 11/07/2005 9:[address] [facility] Progress Note Patient Name: Padmini [...] Results SURGICAL PATH (11/07/2005 12:00 AM CDT) [facility] Method Time Signature 9911 (NOTE) REGIONS [...] trium. ?2. ??Negative for hyperplasia and malignancy. man/11/08/2005 Electronically Signed Out By ? Gudelia Jaffe MD ([id number]) Procedures/Addenda Clinical History Excessive bleeding Gross Description [...] of ru bbery [place] tissue chips. GUERA/gabe ks/11/08/2005 Microscopic Description Microscopic examination is performed on six slides. man/11/08/2005 Gudelia Jaffe MD ([id number]) Specimen (Source) Anatomical Location Collection Method / Collectio n Time Received Time / Laterality Volume 11/07/2005 11/07/2005 Yun Flynn MD LAB_1 Performing Organization Address City/State/ZIP Code Phon e Number [address] [address] [place], [place] [phone] documented in this encounter Visit Diagnoses Not [...] Sun11/07/05 documented in this encounter Care Teams Asset Availability Leader Relationship Specialty Start Date End Date Jose Colin DO PCP - General 12/24/03 09/17/08 [address] [place] [address] documented as of this encounter
--- OUTSIDE RECORDS SUMMARY | 2022-05-09 13:44 | XMS_ITS | Encounter Summary ---
:1965 Author [facility] Address [address] [place] [address] Care Team Providers Name Role Phone DixiePipochris Allan DO Primary Care Provider [phone] Reason for Visit Reason Onset Date Comments LAB TESTS, NOS 02/15/2006 Encounter Details Date Type Department Care Team Description 02/15/2006 Telephone Sunshine Alston PACKAGING ENGINEER TESTS, NOS [address] [facility] - [place], [place] [address] [facility] [phone] [place], [place] [address] Social History Tobacco Use Types Packs/Day Years [...] has to be done and faxed to [facility] by tomorrow in order for her [...] t they received it. Call transferred to [facility]. Sunshine Landa RN documented in this encounter Plan of Treatment Not on filedocumented as of this encounter Visit Diagnoses Not on filedocumented in this encounter Care Teams Interpretive Naturalist Relationship Specialty Start Date End Date Jose Colin DO PCP - General 12/24/03 09/17/08 [address] [place] [address] documented as of this encounter
--- OUTSIDE RECORDS SUMMARY | 2022-05-09 13:44 | XMS_ITS | Encounter Summary ---
:1965 Author [facility] Address [address], [place] [address] Care Team Providers Name Role Phone Unassigned, Provider Primary Care Provider Unavailable Encounter Details Date Type Department Care Team Description 02/19/2006 Outside Hospital External to Rissa Dhillon OPKim RATIVE REPORT- [facility] Social History Tobacco Use Types Packs/Day [...] on filedocumented in this encounter Care Teams Hydrographer Relationship Specialty Start Date End Date Unassigned, Provider PCP - General 09/18/[address] [place] [address] documented as of this encounter
--- OUTSIDE RECORDS SUMMARY | 2022-05-09 13:44 | XMS_ITS | Encounter Summary ---
:1965 Author Organization [facility] Address [address], [place] [address] Care Team Providers Name Role Phone Jose Colin DO Primary Care Provider [phone] Reason for Visit Reason Onset Date Comments Bleeding Nos 11/14/2005 Encounter Details Date Type Department Care Team Description 11/14/2005 Telephone [facility] Obstetrics and Yun Flynn MD Bleeding Nos Gynecology [address] [place] [address] Social History Tobacco Use Types [...] on filedocumented in this encounter Care Teams Solutions Consultant Relationship Specialty Start Date End Date Jose Colin DO PCP - General 12/24/03 09/17/[address] [place] [address] documented as of this encounter
--- OUTSIDE RECORDS SUMMARY | 2022-05-09 13:44 | XMS_ITS | Encounter Summary ---
:1965 Author [facility] Address [address], [place] [address] Care Team Providers Name Role Phone Jose Colin DO Primary Care Provider [phone] Encounter Details Date Type Department Care Team Description 10/04/2005 Orders Only [facility] Obstetrics and Yun Flynn MD Gynecology [address] [place] [address] Social History Tobacco Use Types Packs/Day Years [...] patient referred by Dr. Yun Flynn of [place]. TAPE NUMBER: [id number] ULTRASOUND INDICATIONS: [age] -year-old patient last period [...] patient referred by Dr. Yun Flynn of [place]. TAPE NUMBER: [id number] ULTRASOUND INDICATIONS: [age] -year- old patient last [...] on filedocumented in this encounter Care Teams Special Forces Senior Sergeant Relationship Specialty Start Date End Date Jose Colin DO PCP - General 12/24/03 09/17/08 [address] [place] [address] documented as of this encounter
--- OUTSIDE RECORDS SUMMARY | 2022-05-09 13:44 | XMS_ITS | Encounter Summary ---
:1965 [facility] Address [address] [place] [address] Care Team Providers Name Role Phone Jose Colin DO Primary Care Provider [phone] Reason for Visit Reason Onset Date Comments QUESTIONS, GENERAL 12/15/2005 Encounter Details Date Type Department Care Team Description 12/15/2005 [facility] Jose Allan DO [address] [place], [place] [address] [place], [place] [phone] [address] Social History Tobacco Use Types Packs/Day [...] on filedocumented in this encounter Care Teams Surgical Technologist Relationship Specialty Start Date End Date Jose Colin DO PCP - General 12/24/03 09/17/08 [address] [place] [address] documented as of this encounter
--- OUTSIDE RECORDS SUMMARY | 2022-05-09 13:44 | XMS_ITS | Encounter Summary ---
:1965 Author Organization [facility] Address [address], [place] [address] Care Team Providers Name Role Phone Jose Colin DO Primary Care Provider [phone] Encounter Details Date Type Department Care Team Description 02/15/2006 Notes/Orders [facility] Brigido Patel, Janey Lee RN Pre-Operative [address] [facility] [place] [place] [address] [facility] Examination ([place] [address] [place], [place] Dx) [phone] Social History Tobacco Use Types Packs/Day Years [...] tonight and results will be faxed to [facility] Brigido Bates RN >> BRIGIDO BATES [...] UA WITH MICRO (02/15/2006 6:38 PM CDT) Analysis Performed At Patho logist Time Signature Appr Yellow [facility] Appr Clear [...] 6:38 PM 6 6:39 CDT PM CDT Joes Colin DO LAB_1 Performing Organization Address City/State/ZIP Code Phon e Number [facility] [phone] [facility] [address] [place] [phone] APTT (ACTIVATED PARTIAL THROMBOPLASTIN TIME (02/15/2006 6:38 PM CDT) P athologist Signature PTT 27.6 24.0 - 37.0 [facility] sec Comment: Pre-Op [facility] Specimen Anatomical Collection Method Collection Time Receive d Time (Source) Location / / Volume Laterality 02/15/2006 6:38 PM 6 6:39 CDT PM CDT Jose Colin DO LAB_1 Performing Organization Address [facility] Phon e Number [employer] [facility] [phone] [facility] [address] [place] [phone] SODIUM (02/15/2006 6:38 PM CDT) athologist Signature Sodium 140 135 - 145 [facility] mmol/L Comment: Performed at [facility] Specimen Anatomical Collection Method Collection Time Receive d Time (Source) Location / / Volume Laterality 02/15/2006 6:38 PM 6 6:39 CDT PM CDT Jose Colin DO LAB_1 Performing Organization Address [facility] Phon e Number [employer] [facility] [phone] [facility] [address] [place] [phone] POTASSIUM (02/15/2006 6:38 PM CDT) P athologist Signature Potassium 4.3 3.5 - 5.3 [facility] mmol/L Comment: Performed at [facility] Specimen Anatomical Collection Method Collection Time Receive d Time (Source) Location / / Volume Laterality 02/15/2006 6:38 PM 6 6:39 CDT PM CDT Jose Colin DO LAB_1 Performing Organization Address [facility] Phon e Number [employer] [phone] [phone] INR/PROTIME (02/15/2006 6:38 PM CDT) athologist Signature Protime 12.9 12.0 - 14.5 [facility] sec Comment: Pre-Op Coumadin No [facility] INR 0.9 [facility] Pre-Op Specimen Anatomical Collection Method Collection Time Receive d Time (Source) Location / / Volume Laterality 02/15/2006 6:38 PM 6 6:39 CDT PM CDT Jose Colin DO LAB_1 Performing Organization Address City/[facility]/ZIP Code Phon e Number [employer] [phone] [facility] [address] [address] HEMOGRAM/PLTS/DIFF (02/15/2006 6:38 PM CDT) athologist Signature WBC 7.5 4.0 - 11.0 [...] Lymph 36 17 - 43 % [facility] [place] 10 4 - 12 % [facility] Eos 3 0 - 8 % [facility] Baso 1 0 - 1 % [facility] Neutrophil 3.8 1.8 - 7.7 [facility] Absolute k/ul Lymph Absolute 2.7 1.0 - 4.8 [facility] k/ul [place] Absolute 0.7 0.1 - 0.7 [facility] k/ul Eos Absolute 0.2 0.0 - 0.5 [facility] k/ul Baso Absolute 0.1 0.0 - 0.2 [facility] k/ul Specimen Anatomical Collection Method Collection Time Receive d Time (Source) Location / / Volume Laterality 02/15/2006 6:38 PM 6 6:39 CDT PM CDT Jose Allan Dixie DO LAB_1 Performing Organization Address City/[facility] Code Phon e Number [employer] [phone] [facility] [address] [phone] documented in this encounter Visit Diagnoses Diagnosis Other specified pre-operative examinatio n - Primary documented in this encounter Care Teams Retail Sales Associate Relationship Specialty Start Date End Date Jose Colin DO PCP - General 12/24/03 09/17/08 [address] [place] [address] documented as of this encounter
--- OUTSIDE RECORDS SUMMARY | 2022-05-09 13:44 | XMS_ITS | Encounter Summary ---
:1965 Author Organization [facility] Address [address], [place] [address] Care Team Providers Name Role Phone Jose Colin DO Primary Care Provider [phone] Encounter Details Date Type Department Care Team Description 02/19/2006 Outside Hospital External to [facility] OPER ATIVE REPORT Social History Tobacco Use Types Packs/Day Years Used Date Smoking Tobacco: Never Alcohol Use Standard Drinks/Week Comments Yes 0 (1 standard drink = 0.6 oz pure alcoho l) rarely Sex Assigned at Date Recorded Not on file documented as of this encounter Progress Notes [facility], PROVIDER - 02/19/2006 12:00 AM CDT documented in this encounter Plan of Treatment Not on filedocumented as of this encounter Visit Diagnoses Not on filedocumented in this encounter Care Teams Radiation Safety Officer Relationship Specialty Start Date End Date Jose Colin DO PCP - General 12/24/03 09/17/08 [address] [place] [address] documented as of this encounter
--- OUTSIDE RECORDS SUMMARY | 2022-05-09 13:44 | XMS_ITS | Encounter Summary ---
:1965 Author Organization [facility] Address [address] [place] [address] Care Team Providers Name Role Phone Jose Stack DO Primary Care Provider [phone] Reason for Visit Reason Onset Date Comments RESULTS, BLOOD TEST, NOS 02/16/2006 Encounter Details Date Type Department Care Team Description 02/16/2006 Telephone [facility] Internal [place], RESULTS, BL OOD TEST, Medicine Jose Allan DO NOS 205 [facility] [address] [place] [address] [place], [place] [phone] [address] Social History Tobacco Use Types Packs/Day [...] on filedocumented in this encounter Care Teams Cafe Lead Relationship Specialty Start Date End Date Jose Stack, DO PCP - General 12/24/03 09/17/08 [address] [place] [address] documented as of this encounter
--- OUTSIDE RECORDS SUMMARY | 2022-05-09 13:44 | XMS_ITS | Encounter Summary ---
:1965 Author [facility] Address [address] [address] Care Team Providers Name Role Phone Jose Colin DO Primary Care Provider [phone] Reason for Visit Reason Onset Date Comments RESULTS, TEST 10/09/2005 Encounter Details Date Type Department Care Team Description 10/09/2005 Telephone [facility] Obstetrics and Cathy Vanegas LPN RESULTS, TEST Gynecology [address] [place] [address] [place] [address] [phone] Social History Tobacco Use Types Packs/Day Years [...] filedocumented in this encounter Care Teams Air Traffic Systems Technician Relationship Specialty Start Date End Date Jose Colin DO PCP - General 12/24/03 09/17/08 [address] [place] [address] documented as of this encounter
--- OUTSIDE RECORDS SUMMARY | 2022-05-09 13:44 | XMS_ITS | Encounter Summary ---
:1965 Author Organization [facility] Address [address] [place] [address] Care Team Providers Name Role Phone Jose Colin DO Primary Care Provider [phone] Reason for Visit Reason Comments Follow Up Ultrasound Encounter Details Date Type Department Care Team Description 10/16/2005 Office Visit [facility] Obstetrics and Yun Flynn EN DOMETRIAL POLYP (Primary Dx); Gynecology EXCESSIVE MENSTRUATION [address] [place] [phone] Social History Tobacco Use Types Packs/Day Years [...] menstruation documented in this encounter Care Teams Indoor Landscape Architect Relationship Specialty Start Date End Date Jose Colin DO PCP - General 12/24/03 09/17/08 [address] [place] [address] documented as of this encounter
--- OUTSIDE RECORDS SUMMARY | 2022-05-09 13:44 | XMS_ITS | Encounter Summary ---
:1965 Author Organization [facility] Address [address] [place] [address] Care Team Providers Name Role Phone Jose Colin DO Primary Care Provider Reason for Visit Reason Comments PRE-OP EXAM Encounter Details Date Type Department Care Team Description 10/31/2005 Office Visit [facility] Internal [place], PREOP EXAM OTHER SPECIFIED (Primary Dx); Medicine Jose Allan DO EXCESSIVE MENSTRUATION 205 [facility] [address] [place] [address] [place], [place] [phone] [address] Social History Tobacco Use Types Packs/Day [...] for surgery. [facility] Hobson. HPI: long-standing menometthorgia and fibroids; The rest of the complete ROS are negative. 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* [employer] Social History Main Topics Tobacco Use: [...] TUBE & HOLD (10/31/2005 4:11 PM CDT) [facility] gist Method Time Signature Draw and Hold Specimen [facility] Available Based on Sample Stability Specimen Anatomical Collection Method Collection Time Receive d Time (Source) Location / / Volume Laterality 10/31/2005 4:11 PM 6 4:12 CDT PM CDT Jose Colin DO LAB_1 Performing Organization Address City/State/ZIP Code Phon e Number [facility] [phone] [facility] [address] [place] [phone] HEMOGRAM/PLTS/DIFF (10/31/2005 4:11 PM CDT) athologist [...] Lymph 34 17 - 43 % [facility] [place] 7 4 - 12 % [facility] Eos 2 0 - 8 % [facility] Baso 1 0 - 1 % [facility] Neutrophil 4.3 1.8 - 7.7 [facility] Absolute k/ul Lymph Absolute 2.7 1.0 - 4.8 [facility] k/ul [place] Absolute 0.6 0.1 - 0.7 [facility] k/ul [...] [facility] [phone] [address] documented in this encounter Visit Diagnoses Diagnosis Other specified pre-operative examinatio n - Primary Excessive or frequent menstruation documented in this encounter Care Teams Traffic Technician Relationship Specialty Start Date End Date Jose Colin DO PCP - General 12/24/03 09/17/08 [address] [place] [address] documented as of this encounter
--- OUTSIDE RECORDS SUMMARY | 2022-05-09 13:44 | XMS_ITS | Encounter Summary ---
:1965 [facility] Address [address], [place] [address] Care Team Providers Name Role Phone Unassigned, Provider Primary Care Provider Unavailable Encounter Details Date Type Department Care Team Description 02/19/2006 Outside Hospital External to Rissa Dhillon OPKim RATIVE REPORT- [facility] Social History Tobacco Use Types [...] on filedocumented in this encounter Care Teams Chief Minister Relationship Specialty Start Date End Date Unassigned, Provider PCP - General 09/18/[address] [place] [address] documented as of this encounter
--- OUTSIDE RECORDS SUMMARY | 2022-05-09 13:44 | XMS_ITS | Encounter Summary ---
:1965 Author Organization [facility] Address [address] [place] [address] Care Team Providers Name Role Phone Jose Colin DO Primary Care Provider [phone] Reason for Visit Reason Comments RESULTS, TEST Labs. Consult from Dr. Cotto er Encounter Details Date Type Department Care Team Description 10/20/2005 Office Visit [facility] Internal MARLA Colin FA STING GLUCOSE (Primary Dx); Medicine Jose Allan DO INSOMNIA NOS 205 [facility] [address] [place] [address] [place], [place] [phone] [address] Social History Tobacco Use Types Packs/Day [...] unspecified documented in this encounter Care Teams Dog Or Horse Racing Official Relationship Specialty Start Date End Date Jose Colin DO PCP - General 12/24/03 09/17/08 [address] [place] [address] documented as of this encounter
--- OUTSIDE RECORDS SUMMARY | 2022-05-09 13:44 | XMS_ITS | Encounter Summary ---
:1965 Author Organization [facility] Address [address], [place] [address] Care Team Providers Name Role Phone Jose Colin DO Primary Care Provider [phone] Reason for Visit Reason Onset Date Comments Sooner Appointment 10/05/2005 Encounter Details Date Type Department Care Team Description 10/05/[address] [facility] Obstetrics and Yun Flynn MD Sooner Appointment Gynecology [address] [place] [address] Social History Tobacco Use Types Packs/Day Years Used Date Smoking Tobacco: Never Alcohol Use Standard Drinks/Week Comments Yes 0 (1 standard drink = 0.6 oz pure alcoho l) rarely Sex Assigned at Date Recorded Not on file documented as of this encounter Nursing Notes 10/05/2005 11:59 PM CDT >> RACHEL VANEGAS [facility] Oct 05, 2005 1:35 PM pt given appt. for f/u 10/16/05 8:[address] dr avani Vanegas LPN 1:34 PM >> ANGELA MARTINEZ [facility] Oct 05, 2005 8:12 AM Pt. had an U/S appt. 10/04/05. Needs to sched. f/u appt. 1st avail. mid to end of October. Please advi se. documented in this encounter Plan of Treatment Not on filedocumented as of this encounter Visit Diagnoses Not on filedocumented in this encounter Care Teams Workers Compensation Claims Supervisor Relationship Specialty Start Date End Date Jose oClin DO PCP - General 12/24/03 09/17/08 [address] [place] [address] documented as of this encounter
--- OUTSIDE RECORDS SUMMARY | 2022-05-09 13:44 | XMS_ITS | Encounter Summary ---
:1965 [facility] Address [address], [place] [address] Care Team Providers Name Role Phone Jose Colin DO Primary Care Provider [phone] Reason for Visit Reason Onset Date Comments Other 10/23/2005 Encounter Details Date Type Department Care Team Description 10/23/2005 Telephone [facility] Gynecology Yun Flynn MD Other [address] [place] [address] Social History Tobacco Use Types [...] has been sched for 11/07/05 8 30 [facility] pt will sched preop post- op is sched. Shala Vanegas LPN 5:08 PM pt advised npo and to arrive 1 h b4 sched time. >> CHELSEA PRESLEY Mon October 23, 2005 3:55 PM Pt. is returning Shala call. Please call pt. Chelsea Presley documented in this encounter Plan of Treatment Not on filedocumented as of this encounter Visit Diagnoses Not on filedocumented in this encounter Care Teams Enlisted Aircrew/Aerial Observer/Gunner Relationship Specialty Start Date End Date Jose Colin DO PCP - General 12/24/03 09/17/08 [address] [place] [address] documented as of this encounter
--- OUTSIDE RECORDS SUMMARY | 2022-05-09 13:44 | XMS_ITS | Encounter Summary ---
:1965 Author Organization [facility] Address [address], [place] [address] Care Team Providers Name Role Phone Jose Colin DO Primary Care Provider [phone] Encounter Details Date Type Department Care Team Description 10/07/2005 Notes/Orders [facility] Obstetrics and Yun Flynn, EX CESSIVE MENSTRUATION; Gynecology MD PREVENTIVE CARE EXAM [address] [place], [place] [id number] Social History Tobacco Use Types Packs/Day Years [...] 123 mg/dl [facility] Hours Fasting 12 hours [facility] Specimen Anatomical Collection Method Collection Time Receive d Time (Source) Location / / Volume Laterality 10/07/2005 8:33 AM 6 8:34 CDT AM CDT Yun Flynn MD LAB_1 Performing Organization Address [facility]/ZIP Code Phon e Number [facility] [phone] [facility] [address] [place] [phone] TSH, SENSITIVE (WITH REFLEX) (10/07/2005 8:32 AM CDT) P athologist Signature TSH, with 1.80 0.3 - 5.0 [facility] Reflex uIU/ml Specimen Anatomical Collection Method Collection Time Receive d Time (Source) Location / / Volume Laterality 10/07/2005 8:32 AM 6 8:33 CDT AM CDT Yun Flynn MD LAB_1 Performing Organization Address [facility]/ZIP Code Phon e Number [facility] [phone] [phone] (ABNORMAL) GLUCOSE - FASTING > 8 HRS FASTING (V77.1) (10/07/2005 8:31 AM CDT) Analysis Performed At Patho logist Time Signature Glucose 111 (H) 70 - 100 [facility] mg/dl Hours Fasting 12 hours [facility] Specimen Anatomical Collection Method Collection Time Receive d Time (Source) Location / / Volume Laterality 10/07/2005 8:31 AM 6 8:32 CDT AM CDT Yun Flynn MD LAB_1 Performing Organization Address [facility]/ZIP [facility] Phon e Number [facility] [phone] [phone] documented in this encounter Visit Diagnoses Diagnosis Excessive or frequent menstruation Routine general medical examination at [facility] care facility Routine general medical examination at a health care facility documented in this encounter Care Teams Neon Glass Blower Relationship Specialty Start Date End Date Jose Colin DO PCP - General 12/24/03 09/17/[address] [place] [address] documented as of this encounter
--- OUTSIDE RECORDS SUMMARY | 2022-05-09 13:44 | XMS_ITS | Encounter Summary ---
:1965 Author Organization [facility] Address [address] [address] Care Team Providers Name Role Phone DixieJose Jerrell BOOGIE Primary Care Provider [phone] Encounter Details Date Type Department Care Team Description 07/13/2005 Hospital Encounter [facility] Same Day [facility]es, [facility] [place] [address] Social History Tobacco Use Types Packs/Day Years Used Date Smoking Tobacco: Never Alcohol Use Standard Drinks/Week Comments Yes 0 (1 standard drink = 0.6 oz pure alcoho l) rarely Sex Assigned at Date Recorded Not on file documented as of this encounter Last Filed Vital Signs Vital Sign Reading Time Taken Comments Blood Pressure 111/54 07/13/2005 3:45 PM SPRINKLER FITTER Pulse 72 07/13/2005 3:45 PM SPRINKLER FITTER Temperature 36.6 ??C (97.8 ??F) 07/13/2005 2:15 PM SPRINKLER FITTER Respiratory Rate 16 07/13/2005 3:45 PM SPRINKLER FITTER Oxygen Saturation 93% 07/13/2005 3:45 PM SPRINKLER FITTER Inhaled Oxygen Concentration - - Weight 82.6 kg (182 lb 1.6 oz) 07/13/2005 11:59 AM SPRINKLER FITTER Height 160 cm (5' 3) 07/13/2005 11:59 AM SPRINKLER FITTER Body Mass Index 32.26 07/13/2005 11:59 AM SPRINKLER FITTER documented in this encounter Medications at Time [...] Notes Clark Jose - 07/13/2005 12:00 AM SPRINKLER FITTER DATE OF SURGERY: July 13, 2005 PREOPERATIVE [...] Jose MD Transcribed: 07/14/2005 08:17:07 Doc #: [id number] cc: Jose Colin DO, Referring/Primary DO NOT [...] 07/13/2005 OUTPATIENT OPERATIVE REPORT [facility]IDENTIAL MEDICAL RECORD [address] [address] Page 1 Patient: PADMINI CHOI [id number] Date of : 1965 Age: 40Y Visit Date: 07/13/2005 OUTPATIENT OPERATIVE REPORT NKLER FITTER documented in this encounter Plan of Treatment Not on filedocumented as of this encounter Procedures Procedure Name Priority Date/Time Associated Diagnosis Comme nts EXCISION MASS FINGER OR HPSDS 07/13/2005 12:40 PM SPRINKLER FITTER HAND OR WRIST Case Notes right wrist ganglion cyst ex cision SURGICAL PATH Routine 07/13/2005 12:00 AM SPRINKLER FITTER Res ults for this procedure are in the results section . documented in this encounter Results SURGICAL PATH (07/13/2005 12:00 AM SPRINKLER FITTER) [facility] gist Method Time Signature 9911 (NOTE) [facility] Final Report Patient Name: PADMINI CHOI Taken: 07/13/2005 Received: 07/13/2005 Reported: 07/14/2005 Physician(s): CLARK JOSE ([id number]) ? Final Pathologic Diagnosis Soft tissue, right wrist, excision ??Ganglion cyst. cab/07/14/2005 Electronically Signed Out By ? Sudha Mahoney MD ([id number]) Procedures/Addenda Clinical History Cyst Gross Description The specimen is received in formalin and is labeled cyst rig ht wrist. ?? The specimen consists of a 1 cm x 0.6 cm x 0.4 cm white fibromembranous cyst that is filled with a scant amount of g elatinous material. ??The specimen is serially sectioned and entirely submitted in one (1) cassette. ??mb/nancy il/07/14/2005 Microscopic Description Microscopic examination is performed on one (1) slide. cab07/14/2005 Sudha Mahoney MD ([id number]) Specimen (Source) Anatomical Location Collection Method / Collectio n Time Received Time / Laterality Volume 07/13/2005 07/13/2005 Clark Jose MD LAB_1 Performing Organization Address City/State/ZIP Code Phon e Number [address] [address] [place], [place] [phone] documented in this encounter Visit Diagnoses Diagnosis Ganglion of joint documented in this encounter Administered Medications Inactive Administered Medications - up to 3 most recent administrations Medication Order MAR Action Action Date Dose Rate Site BUPIVACAINE HCL 0.5 % SOLN Given 07/13/2005 1:19 PM SPRINKLER FITTER 6 mL Injection, Starting on Elda 07/13/05 DEXAMETHASONE SODIUM PHOSPHATE 4 MG/ML IJ Given 07/13/2005 3:16 PM SPRINKLER FITTER 4 mg Port SOLN 4 mg, Intravenous, Starting on Elda 07/13/05, Until Leda 07/13/05 at 1731 FENTANYL CITRATE 0.05 MG/ML IJ SOLN Given 07/13/2005 2:02 PM SPRINKLER FITTER 50 mcg Port 50 mcg, Intravenous, Starting on Elda 07/13/05, Until Elda 07/13/05 at 1731 Given 07/13/2005 1:48 PM SPRINKLER FITTER 50 mcg Port KETOROLAC TROMETHAMINE 30 MG/ML IJ SOLN Given 07/13/2005 1:49 PM SPRINKLER FITTER 30 mg Port 30 mg, Intravenous, Starting on Elda 07/13/05, Until Elda 07/13/05 at 1731 METOCLOPRAMIDE HCL 5 MG/ML IJ SOLN Given 07/13/2005 3:13 PM SPRINKLER FITTER 10 mg Port 10 mg, Intravenous, Starting on Elda 07/13/05, Until Elda 07/13/05 at 1731 OXYCODONE-ACETAMINOPHEN Given 07/13/2005 1:45 PM SPRINKLER FITTER 1 Tablet 1 Tablet, Oral, Starting on Elda 07/13/05, Until Elda 07/13/05 at 1731 ZOFRAN 2MG/ML IV SOLN Given 07/13/2005 3:05 PM SPRINKLER FITTER 4 mg Port 4 mg, Intravenous, Starting on Elda 07/13/05 documented in this encounter Care Teams Elevator Builder Relationship Specialty Start Date End Date Jose Colin DO PCP - General 12/24/03 09/17/08 [address] [place] [address] documented as of this encounter
--- OUTSIDE RECORDS SUMMARY | 2022-05-09 13:45 | XMS_ITS | Encounter Summary ---
:1965 Author Organization [facility] Address [address], [place] [address] Care Team Providers Name Role Phone Unassigned, Provider Primary Care Provider Unavailable Encounter Details Date Type Department Care Team Description 08/23/2004 [facility] Same Day Gavin Justice MD [facility] [address] [place] [address] [place] [address] [phone] Social History Tobacco Use Types Packs/Day Years Used Date Smoking Tobacco: Never Smokeless Tobacco: Never Alcohol Use Standard Drinks/Week Comments Yes 0 (1 standard drink = 0.6 oz pure alcoho l) rarely Sex Assigned at Date Recorded Not on file documented as of this encounter Procedure Notes Jerome Garg - 08/23/2004 12:00 AM UROLOGIST PHYSICIAN DATE OF SURGERY: August 23, 2004. STAFF [...] Justice MD Transcribed: 08/24/2004 07:37:56 Doc #: [id number] cc: Jose Colin, DO, Referring DO NOT SIGN UNLESS PRESENT FOR PROCEDURE I attest that I was present for and participated in the ma portions of this procedure(s) in compliance with the Health Care Financing Administration Teaching Physician Guidelines. Signed Date Regions Staff Physician 1 Page 2 Patient Name: PADMINI CHOI Visit Date: 08/23/2004 OUTPATIENT OPERATIVE REPORT CON[facility]IDENTIAL MEDICAL RECORD [address] [address] Page 1 Patient: PADMINI CHOI Location: PAIN HPN: [id number] Date of : 1965 Visit Date: 08/23/2004 OUTPATIENT OPERATIVE REPORT documented in this encounter Plan of Treatment Not on filedocumented as of this encounter Visit Diagnoses Not on filedocumented in this encounter Care Teams Metal Numerical Tool Programmer Relationship Specialty Start Date End Date Unassigned, Provider PCP - General 09/18/[address] [place] [address] documented as of this encounter
--- OUTSIDE RECORDS SUMMARY | 2022-05-09 13:45 | XMS_ITS | Encounter Summary ---
:1965 [facility] Address [address] [place] [address] Care Team Providers Name Role Phone Jose Colin DO Primary Care Provider [phone] Reason for Visit Reason Onset Date Comments RESULTS, TEST 07/19/2004 Encounter Details Date Type Department Care Team Description 07/19/2004 Telephone [facility] Jose Witt, RESULTS, TEST [address] [place], [place] [phone] [phone] [place] [address] (Wo rk) Social History Tobacco Use Types Packs/Day Years Used Date Smoking Tobacco: Never Alcohol Use Standard Drinks/Week Comments Not Asked 0 (1 standard drink = 0.6 oz pure alcoho l) Sex Assigned at Date Recorded Not on file documented as of this encounter Nursing Notes 07/19/2004 11:59 PM LUMBER PLANER >> JOSE Newberry Jul 19, 2004 2:33 PM see encounter from 07/18/2004 Jose oClin DO 2:33 PM 07/19/2004 >> BOB Newberry Jul 19, 2004 10:47 AM Re: MRI Results documented in this encounter Plan of Treatment Not on filedocumented as of this encounter Visit Diagnoses Not on filedocumented in this encounter Care Teams Manager Bridge Relationship Specialty Start Date End Date Jose Colin DO PCP - General 12/24/03 09/17/08 [address] [place] [address] documented as of this encounter
--- OUTSIDE RECORDS SUMMARY | 2022-05-09 13:45 | XMS_ITS | Encounter Summary ---
:1965 [facility] Address [address] [address] Care Team Providers Name Role Phone Jose Stack DO Primary Care Provider [phone] Reason for Referral Specialty Diagnoses / Procedures Referred By Contact Refer red To Contact Jose Stack DO [address] [place], [place] [address] Referral ID Status Reason Start Date Expiration Date Visits Requ ested Visits Authorized SH SAW OPERATOR Specialty Diagnoses / Procedures Referred By Contact Refer red To Contact Jose Stack DO [address] [place], [place] [address] Referral ID Status Reason Start Date Expiration Date Visits Requ ested Visits Authorized SH SAW OPERATOR Reason for Visit Reason Comments BACK PAIN f/u visit Encounter Details Date Type Department Care Team Description 06/16/2005 Office Visit [facility] Internal [place], PAIN IN MUSTAFA B (Primary Dx); Medicine Jose Allan DO VACCINE FOR TETANUS + DIPHTHERIA; [address] [facility] 599 [facility] GANGLION NOS; [place] [address] [place] FX FOOT BONE NOS-CLOSED [phone] [address] Social History Tobacco Use Types Packs/Day Years Used Date Smoking Tobacco: Never Alcohol Use Standard Drinks/Week Comments Yes 0 (1 standard drink = 0.6 oz pure alcoho l) rarely Sex Assigned at Date Recorded Not on file documented as of this encounter Last Filed Vital Signs Vital Sign Reading Time Taken Comments Blood Pressure 112/74 06/16/2005 1:47 PM FINISH SAW OPERATOR Pulse 60 06/16/2005 1:47 PM FINISH SAW OPERATOR Temperature - - Respiratory Rate 16 06/16/2005 1:47 PM FINISH SAW OPERATOR Oxygen Saturation - - Inhaled Oxygen Concentration - - Weight 82.1 kg (181 lb) 06/16/2005 1:47 PM FINISH SAW OPERATOR Height 160 cm (5' 3) 06/16/2005 1:47 PM FINISH SAW OPERATOR Body Mass Index 32.06 06/16/2005 1:47 PM FINISH SAW OPERATOR documented in this encounter Patient Instructions Patient Sjjqmkqmdwfr15/06/2006 1:20 PM FINISH SAW OPERATOR PLEASE STOP AT CHECK OUT DESK BEFORE LEAVING THE CLINIC Schedule Appointment with the Specialist using the phone number provided Stop by Radiology for X-ray documented in this encounter Progress Notes 06/16/2005 1:20 PM FINISH SAW OPERATOR Quick Note by: JOSE STACK on 06/20/05 [...] A cc: Jose Stack DO Radiology SP SH SAW OPERATOR documented in this encounter Plan of [...] toes) documented in this encounter Care Teams Coding Coordinator Relationship Specialty Start Date End Date Jose Stack DO PCP - General 12/24/03 09/17/08 [address] [place] [address] documented as of this encounter
--- OUTSIDE RECORDS SUMMARY | 2022-05-09 13:45 | XMS_ITS | Encounter Summary ---
:1965 [facility] Address [address] [place] [address] Care Team Providers Name Role Phone Jose Stack DO Primary Care Provider [phone] Reason for Visit Reason Onset Date Comments Refill 05/09/2004 Encounter Details Date Type Department Care Team Description 05/09/2004 Refill [facility] Jose Stack, Refill 205 [facility] [address] [place] [address] [place], [place] [phone] [address] (Wo rk) Social History Tobacco Use Types Packs/Day Years Used Date Smoking Tobacco: Never Alcohol Use Standard Drinks/Week Comments Not Asked 0 (1 standard drink = 0.6 oz pure alcoho l) Sex Assigned at Date Recorded Not on file documented as of this encounter Nursing Notes 05/09/2004 11:59 PM PRINT PRODUCTION COORDINATOR Approved Prescriptions: Disp Refills ACIPHEX 20MG ORAL TABS 30 99 Sig: Take 1 tablet by mouth once a day Authorizing Provider: JOSE STACK Ordering User: NORBERTO ROBLES >> RUBY Prasad May 09, 2004 5:00 PM Last fill on 105480 for a quantity of 30 documented in this encounter Plan of Treatment Not on filedocumented as of this encounter Visit Diagnoses Diagnosis Brachial neuritis or radiculitis NOS Brachial neuritis or radiculitis nos documented in this encounter Care Teams Development Expert Relationship Specialty Start Date End Date Jose Stack DO PCP - General 12/24/03 09/17/08 [address] [place] [address] documented as of this encounter
--- OUTSIDE RECORDS SUMMARY | 2022-05-09 13:45 | XMS_ITS | Encounter Summary ---
:1965 Author Organization [facility] Address [address] [place] [address] Care Team Providers Name Role Phone Jose Colin DO Primary Care Provider Encounter Details Date Type Department Care Team Description 04/27/2004 Correspondence None Unknown, Physici an CONSENT AND RELEASE [address] [place] [address] (Wo rk) Social History Tobacco Use Types Packs/Day Years Used Date Smoking Tobacco: Never Alcohol Use Standard Drinks/Week Comments Not Asked 0 (1 standard drink = 0.6 oz pure alcoho l) Sex Assigned at Date Recorded Not on file documented as of this encounter Progress Notes Unknown, Physician - 04/27/2004 12:00 AM MAIL ROOM documented in this encounter Plan of Treatment Not on filedocumented as of this encounter Visit Diagnoses Not on filedocumented in this encounter Care Teams Outbound Sales Agent Relationship Specialty Start Date End Date Jose Colin DO PCP - General 12/24/03 09/17/[address] [place] [address] documented as of this encounter
--- OUTSIDE RECORDS SUMMARY | 2022-05-09 13:45 | XMS_ITS | Encounter Summary ---
:1965 Author Organization [facility] Address [address], [place] [address] Care Team Providers Name Role Phone Dungjosé antonioelbaJose medina Primary Care Provider [phone] Reason for Visit Reason Comments PAIN, FOOT follow up injection right fo ot metatarsal Encounter Details Date Type Department Care Team Description 07/12/2005 Office Visit [facility] Draper PLAN TAR NERVE LESION Foot and Ankle Surge ry DPM [address] [place] [address] Social History Tobacco Use Types Packs/Day Years Used Date Smoking Tobacco: Never Alcohol Use Standard Drinks/Week Comments Yes 0 (1 standard drink = 0.6 oz pure alcoho l) rarely Sex Assigned at Date Recorded Not on file documented as of this encounter Last Filed Vital Signs Vital Sign Reading Time Taken Comments Blood Pressure 127/68 07/12/2005 1:40 PM SWAGING MACHINE ADJUSTER Pulse 66 07/12/2005 1:40 PM SWAGING MACHINE ADJUSTER Temperature 35.7 ??C (96.3 ??F) 07/12/2005 1:40 PM SWAGING MACHINE ADJUSTER Respiratory Rate - - Oxygen Saturation - - Inhaled Oxygen Concentration - - Weight - - Height - - Body Mass Index - - documented in this encounter Progress Notes 07/12/2005 1:40 PM SWAGING MACHINE ADJUSTER This office note has been dictated. MARÍA [...] wear but fairly flexible, has added an [id number]-[id number] arch support. PLAN: We discussed with the [...] reappoint in three weeks. ?? P cc: ING MACHINE ADJUSTER documented in this encounter Nursing Notes 07/12/2005 [...] nerve documented in this encounter Care Teams Auto Vinyl Top Installer Relationship Specialty Start Date End Date Jose Colin DO PCP - General 12/24/03 09/17/08 [address] [place] [address] documented as of this encounter
--- OUTSIDE RECORDS SUMMARY | 2022-05-09 13:45 | XMS_ITS | Encounter Summary ---
:1965 Author Organization [facility] Address [address], [place] [address] Care Team Providers Name Role Phone Jose Colin DO Primary Care Provider [phone] Encounter Details Date Type Department Care Team Description 11/23/2004 Therapy External to Yeyo Colin DO [address] [place] [address] (Wo rk) Social History Tobacco [...] on filedocumented in this encounter Care Teams Artificial Breeding Distributor Relationship Specialty Start Date End Date Jose Colin DO PCP - General 12/24/03 09/17/08 [address] [place] [address] documented as of this encounter
--- OUTSIDE RECORDS SUMMARY | 2022-05-09 13:45 | XMS_ITS | Encounter Summary ---
:1965 [facility] Address [address], [place] [address] Care Team Providers Name Role Phone Jose Colin DO Primary Care Provider [phone] Reason for Referral Specialty Diagnoses / Procedures Referred By Contact Refer red To Contact Jose Colin DO [address] [place], [place] [address] Referral ID Status Reason Start Date Expiration Date Visits Requ ested Visits Authorized D ICER Reason for Visit Reason Comments LEG PAIN f/u left leg Encounter Details Date Type Department Care Team Description 07/12/2004 Office Visit [facility] Internal [place], SCIATICA(AC JOSÉ MIGUEL) Medicine Jose Allan DO (Primary Dx) [address] [facility] [address] [place] [address] [place], [place] [phone] [address] Social History Tobacco Use Types Packs/Day Years Used Date Smoking Tobacco: Never Alcohol Use Standard Drinks/Week Comments Not Asked 0 (1 standard drink = 0.6 oz pure alcoho l) Sex Assigned at Date Recorded Not on file documented as of this encounter Last Filed Vital Signs Vital Sign Reading Time Taken Comments Blood Pressure 100/60 07/12/2004 3:22 PM BREAD ICER Pulse 60 07/12/2004 3:22 PM BREAD ICER Temperature 36.9 ??C (98.4 ??F) 07/12/2004 3:22 PM BREAD ICER Respiratory Rate 16 07/12/2004 3:22 PM BREAD ICER Oxygen Saturation - - Inhaled Oxygen Concentration - - Weight 78.1 kg (172 lb 3.2 oz) 07/12/2004 3:22 PM BREAD ICER Height - - Body Mass Index 31.5 09/02/2002 2:00 PM BREAD ICER documented in this encounter Patient Instructions Patient Yzqsgnidowbt97/01/2005 3:20 PM BREAD ICER Stop by the Referral Visualization Developer to schedule referral appointment. Continue Naprosyn and Vicodin as needed Call 2 to 3 days after MRI for next step documented in this encounter Progress Notes 07/12/2004 3:20 PM BREAD ICER SUBJECTIVE: Megan Choi is a 39 yr [...] Sciatica documented in this encounter Care Teams Process Development Engineer Relationship Specialty Start Date End Date Jose Colin DO PCP - General 12/24/03 09/17/[address] [place] [address] documented as of this encounter
--- OUTSIDE RECORDS SUMMARY | 2022-05-09 13:45 | XMS_ITS | Encounter Summary ---
:1965 Author Organization [facility] Address [address], [place] [address] Care Team Providers Name Role Phone Jose Colin DO Primary Care Provider [phone] Encounter Details Date Type Department Care Team Description 05/25/2005 Correspondence None Hp Kleber, Provider CONSENT AND RELEASE Social History Tobacco Use Types Packs/Day Years Used Date Smoking Tobacco: Never Alcohol Use Standard Drinks/Week Comments Yes 0 (1 standard drink = 0.6 oz pure alcoho l) rarely Sex Assigned at Date Recorded Not on file documented as of this encounter Progress Notes Nicholas Shahid, Provider - 05/25/2005 12:00 AM SECURITY FIELD SUPERVISOR documented in this encounter Plan of Treatment Not on filedocumented as of this encounter Visit Diagnoses Not on filedocumented in this encounter Care Teams Hot Mix Operator Relationship Specialty Start Date End Date Jose Colin DO PCP - General 12/24/03 09/17/08 [address] [place] [address] documented as of this encounter
--- OUTSIDE RECORDS SUMMARY | 2022-05-09 13:45 | XMS_ITS | Encounter Summary ---
:1965 [facility] Address [address], [place] [address] Care Team Providers Name Role Phone Jose Colin DO Primary Care Provider [phone] Reason for Visit Reason Onset Date Comments ERRONEOUS ENTRY 06/16/2005 Encounter Details Date Type Department Care Team Description 06/16/2005 Telephone [facility] mikaylane Jose Colin, ERRONEOUS ENTRY [address] [place] [address] [address] [phone] [place] [address] (Wo rk) Social History Tobacco Use Types Packs/Day Years Used Date Smoking Tobacco: Never Alcohol Use Standard Drinks/Week Comments Yes 0 (1 standard drink = 0.6 oz pure alcoho l) rarely Sex Assigned at Date Recorded Not on file documented as of this encounter Nursing Notes 06/16/2005 11:59 PM CIRCULATION SALES REPRESENTATIVE >> MELISSA Freeman Jun 16, 2005 2:05 PM Encounter initiated. documented in this encounter Plan of Treatment Not on filedocumented as of this encounter Visit Diagnoses Not on filedocumented in this encounter Care Teams Inspector Canvas Products Relationship Specialty Start Date End Date Jose Colin, DO PCP - General 12/24/03 09/17/08 [address] [place] [address] documented as of this encounter
--- OUTSIDE RECORDS SUMMARY | 2022-05-09 13:45 | XMS_ITS | Encounter Summary ---
:1965 Author Organization [facility] Address [address], [place] [address] Care Team Providers Name Role Phone Jose Stack DO Primary Care Provider [phone] Reason for Referral Specialty Diagnoses / Procedures Referred By Contact Refer red To Contact Jose Stack DO [address] [place], [place] [phone] Referral ID Status Reason Start Date Expiration Date Visits Requ ested Visits Authorized Reason for Visit Reason Onset Date Comments REFERRAL REQUEST 11/15/2004 Encounter Details Date Type Department Care Team Description 11/15/2004 Telephone [facility] Internal [facility] Jose Witt REFERRAL REQUEST [address] [place], [place] [id number] [address] [facility] [phone] [place] [address] (Wo rk) Social History Tobacco [...] notified of referral, will be returning to [facility], [facility] # she will call to [facility], will fax refer ral Brigido Burch RN >> JOSE STACK SunNov 15, 2004 2:05 PM PT ordered Jose Stack DO 2:05 PM 11/15/2004 >> HARVINDER BARRY SunNov 15, 2004 11:06 AM Pt had back [...] Primary documented in this encounter Care Teams Senior Sql Developer Relationship Specialty Start Date End Date Jose Stack DO PCP - General 12/24/03 09/17/08 [address] [place] [address] documented as of this encounter
--- OUTSIDE RECORDS SUMMARY | 2022-05-09 13:45 | XMS_ITS | Encounter Summary ---
:1965 Author Organization [facility] Address [address] [place] [address] Care Team Providers Name Role Phone Jose Colin DO Primary Care Provider [phone] Reason for Visit Reason Comments LEG PAIN numb MOLE Encounter Details Date Type Department Care Team Description 06/20/2004 Office Visit [facility] Chris Smalls MD [facility]( ACUTE) Practice (Primary Dx) [address] [place] [address] Social History Tobacco Use Types Packs/Day Years Used Date Smoking Tobacco: Never Alcohol Use Standard Drinks/Week Comments Not Asked 0 (1 standard drink = 0.6 oz pure alcoho l) Sex Assigned at Date Recorded Not on file documented as of this encounter Last Filed Vital Signs Vital Sign Reading Time Taken Comments Blood Pressure 100/60 06/20/2004 2:38 PM SERVICE ADVOCATE CONTACT Pulse 72 06/20/2004 2:38 PM SERVICE ADVOCATE CONTACT Temperature 36.7 ??C (98.1 ??F) 06/20/2004 2:38 PM SERVICE ADVOCATE CONTACT Respiratory Rate 20 06/20/2004 2:38 PM SERVICE ADVOCATE CONTACT Oxygen Saturation - - Inhaled Oxygen Concentration - - Weight - - Height - - Body Mass Index - - documented in this encounter Progress Notes 06/20/2004 2:40 PM SERVICE ADVOCATE CONTACT This office note has been dictated. Chris [...] she should have this removed. P cc: ICE ADVOCATE CONTACT documented in this encounter Procedure Notes Sofia [...] A cc: Radiology SP Chris Smalls MD ICE ADVOCATE CONTACT documented in this encounter Plan of Treatment [...] EXAMINATION: LUMBOSACRAL SPINE WITH OBLI QUES - 06/20/04. FINDINGS: Alignment is normal. There is spurring and disk space narrowing at L5-S1. No other abnormalities are not ed. CONCLUSION: Degenerative spurring and di sk space narrowing L5-S1. Sofia Lilly MD 11:00 A cc: Radiology SP Chris Smalls MD Chris Smalls MD RAD_1 documented in this encounter Visit Diagnoses Diagnosis Sciatica (HRC) - Primary Sciatica documented in this encounter Care Teams Storage Battery Tester Relationship Specialty Start Date End Date Jose Colin DO PCP - General 12/24/03 09/17/08 [address] [place] [address] documented as of this encounter
--- OUTSIDE RECORDS SUMMARY | 2022-05-09 13:45 | XMS_ITS | Encounter Summary ---
:1965 Author Organization [facility] Address [address] [place] [address] Care Team Providers Name Role Phone Jose Colin DO Primary Care Provider [phone] Encounter Details Date Type Department Care Team Description 09/21/2004 Orders Only [facility] Radiology Unknown, Physician [address] [facility] [address] [place] [address] [place], [place] [address] (Wo rk) Social History Tobacco Use Types [...] on filedocumented in this encounter Care Teams Art History Professor Relationship Specialty Start Date End Date Jose Colin DO PCP - General 12/24/03 09/17/08 [address] [place] [address] documented as of this encounter
--- OUTSIDE RECORDS SUMMARY | 2022-05-09 13:45 | XMS_ITS | Encounter Summary ---
:1965 [facility] Address [address] [place] [address] Care Team Providers Name Role Phone Jose Colin DO Primary Care Provider [phone] Reason for Visit Reason Onset Date Comments RESULTS, TEST 06/06/2005 Encounter Details Date Type Department Care Team Description 06/06/2005 Telephone [facility] Jose Witt, RESULTS, TEST [address] [place] [address] [address] [facility] [address] [place] [address] (Wo rk) Social History Tobacco Use Types Packs/Day Years Used Date Smoking Tobacco: Never Alcohol Use Standard Drinks/Week Comments Yes 0 (1 standard drink = 0.6 oz pure alcoho l) rarely Sex Assigned at Date Recorded Not on file documented as of this encounter Nursing Notes 06/06/2005 11:59 PM WORKERS COMPENSATION CLAIMS EXAMINER >> BRIGIDO ROGERS [facility] Jun 09, 2005 8:18 AM Pt notified of results and recomm, she will sched f/u appt to review >> BRIGIDO ROGERS Elda Jun 08, 2005 4:58 PM LMTRC >> YARED WELLER SunJun 08, 2005 3:55 PM MRI does not show any new impingment or other abnormalities. She should f/u as per her discussion with Dr Maynard at their last visit or within 2 weeks. Jose Weller MD >> MELISSA OBREGON [facility] Jun 08, 2005 12:06 PM Patient called back. Wanting to know if she needs to come in and see to get MRI results or if she can get these by phone? Please advise. Waiting for call back since Sunday. Can be reached at [phone] until 3:30 today. >> BOB S RENEE jeramie Jun 06, 2005 9:42 AM Pt had mri done [facility] & would like results. documented in this encounter Plan of Treatment Not on filedocumented as of this encounter Visit Diagnoses Not on filedocumented in this encounter Care Teams Cinder Pit Crane Operator Relationship Specialty Start Date End Date Jose Colin, PCP - General 12/24/03 09/17/08 [address] [place] [address] documented as of this encounter
--- OUTSIDE RECORDS SUMMARY | 2022-05-09 13:45 | XMS_ITS | Encounter Summary ---
:1965 Author [facility] Address [address] [address] Care Team Providers Name Role Phone Jose Colin DO Primary Care Provider [phone] Reason for Visit Reason Onset Date Comments RESULTS, TEST 07/18/2004 Encounter Details Date Type Department Care Team Description 07/18/2004 Telephone [facility] Internal [facility] Brigido Burton RN RESULTS, TEST [address] [place] [address] [address] [phone] [place], [place] [address] Social History Tobacco Use Types Packs/Day Years Used Date Smoking Tobacco: Never Alcohol Use Standard Drinks/Week Comments Not Asked 0 (1 standard drink = 0.6 oz pure alcoho l) Sex Assigned at Date Recorded Not on file documented as of this encounter Nursing Notes 07/18/2004 11:59 PM ASSEMBLER BRAZER >> MICHAEL HALE Mon Jul 18, 2004 [...] up at her convienence. >> BRIGIDO ROGERS SunJul 18, 2004 10:32 AM Result Notes: Notes recorded by Jose Colin on 07/18/2004 at 10:23 AM some disk protrusion may benefit from epidural injection- i'll order Jose Colin DO 10:23 AM 07/18/2004 documented in this encounter Plan of Treatment Not on filedocumented as of this encounter Visit Diagnoses Not on filedocumented in this encounter Care Teams Button Attaching Machine Operator Relationship Specialty Start Date End Date Jose Colin, PCP - General 12/24/03 09/17/08 [address] [place] [address] documented as of this encounter
--- OUTSIDE RECORDS SUMMARY | 2022-05-09 13:45 | XMS_ITS | Encounter Summary ---
:1965 Author Organization [facility] Address [address], [place] [address] Care Team Providers Name Role Phone Jose Colin DO Primary Care Provider [phone] Encounter Details Date Type Department Care Team Description 07/04/2005 Office Visit [facility] Aravind Jose JOIN T SYMPT Plastic [facility] [address] Social History Tobacco Use Types Packs/Day Years Used Date Smoking Tobacco: Never Alcohol Use Standard Drinks/Week Comments Yes 0 (1 standard drink = 0.6 oz pure alcoho l) rarely Sex Assigned at Date Recorded Not on file documented as of this encounter Last Filed Vital Signs Vital Sign Reading Time Taken Comments Blood Pressure 125/79 07/04/2005 2:15 PM DATABASE PROGRAMMER Pulse 77 07/04/2005 2:15 PM DATABASE PROGRAMMER Temperature - - Respiratory Rate 18 07/04/2005 2:15 PM DATABASE PROGRAMMER Oxygen Saturation - - Inhaled Oxygen Concentration [...] dominant 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 MEDICATIONS: Medications she takes at this time [...] earliest convenience for the patient. P cc: BASE PROGRAMMER documented in this encounter Nursing Notes 07/04/2005 [...] she is still having issues from. Sees Cylinder Press Operator re: this problem. documented in this encounter Plan of Treatment Scheduled Referrals Name Type Priority Associated Diagnoses Order S chedule SURGERY Referral Routine Ganglion Nos Ordered: 2005 documented as of this encounter Visit Diagnoses Diagnosis Other symptoms referable to forearm join t documented in this encounter Care Teams Data Communications Engineer Relationship Specialty Start Date End Date Jose Colin DO PCP - General 12/24/03 09/17/08 [address] [place] [address] documented as of this encounter
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
--- OUTSIDE RECORDS SUMMARY | 2022-05-09 13:45 | XMS_ITS | Encounter Summary ---
:1965 Author [facility] Address [address], [place] [address] Care Team Providers Name Role Phone Jose Colin DO Primary Care Provider [phone] Encounter Details Date Type Department Care Team Description 04/21/2004 Notes/Orders [facility] Internal [place] DERMATITIS NOS Medicine Jose Allan DO (Primary Dx) 205 [facility] [address] [place] [address] [place], [place] [phone] [address] Social History Tobacco Use Types Packs/Day [...] Primary documented in this encounter Care Teams Quality Systems Engineer Relationship Specialty Start Date End Date Jose Colin DO PCP - General 12/24/03 09/17/[address] [place] [address] documented as of this encounter
--- OUTSIDE RECORDS SUMMARY | 2022-05-09 13:45 | XMS_ITS | Encounter Summary ---
:1965 Author [facility] Address [address], [place] [address] Care Team Providers Name Role Phone Jose Colin DO Primary Care Provider Reason for Referral Specialty Diagnoses / Procedures Referred By Contact Refer red To Contact Jose Colin DO [address] [place], [place] [address] Referral ID Status Reason Start Date Expiration Date Visits Requ ested Visits Authorized GER REIMBURSEMENT Encounter Details Date Type Department Care Team Description 07/18/2004 Notes/Orders [facility] REMBERTO Colin BACK PA IN(ACUTE)<6 Medicine Jose Allan DO WEEKS (Primary Dx) 205 [facility] [address] [place] [address] [place], [place] [phone] [address] Social History Tobacco Use Types Packs/Day [...] Primary documented in this encounter Care Teams Computer Processing Scheduler Relationship Specialty Start Date End Date Jose Colin DO PCP - General 7/15/04 4/9/09 [address] [place] [address] documented as of this encounter
--- OUTSIDE RECORDS SUMMARY | 2022-05-09 13:45 | XMS_ITS | Encounter Summary ---
:1965 Author Organization [facility] Address [address] [place] [address] Care Team Providers Name Role Phone Jose Colin DO Primary Care Provider [phone] Reason for Visit Reason Comments PRE-OP EXAM Encounter Details Date Type Department Care Team Description 09/22/2004 Office Visit [facility] Internal [place], PREOP EXAM OTHER SPECIFIED (Primary Dx); Medicine Jose Allan DO DISC DIS NEC/NOS-LUMBAR [address] [facility] [address] [place] [address] [place], [place] [phone] [address] Social History Tobacco Use Types Packs/Day [...] Body Mass Index 30.91 09/02/2002 2:00 PM FURNACE COOLER documented in this encounter Patient Instructions Patient Ezwzbvkeylbp88/14/2005 4:00 PM CDT Stop by Lab for [...] surgery. She is scheduled for surgery at [facility] on 09/27/[address] Espinosa. 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 Social History Main Topics Tobacco Use: Never [...] 5 days prior to surgery Jose Colin, 4:30 PM 09/22/2004 (This chart has been [...] [facility] k/ul RBC 4.35 4.0 - 5.2 [facility] M/ul Hemoglobin 13.8 12.0 - [facility] 16.0 g/dl HCT 41.0 36.0 - [facility] 46.0 % MCV 94.1 80 - 100 [facility] fl MCH 31.8 26 - 34 pg PENDING SALE TO [facility] MCHC 33.8 32 - 36 % [facility] RDW 13.4 11.5 - [facility] 14.5 % Platelets 237 150 - 450 [facility] k/ul PMN/Band 63 43 - 72 % [facility] Lymph 28 17 - 43 % [facility] Furnas 8 4 - 12 % [facility] Eos 1 0 - 8 % [facility] Baso 1 0 - 1 % [facility] Neutrophil 5.9 1.8 - 7.7 [facility] Absolute k/ul Lymph Absolute 2.6 1.0 - 4.8 [facility] k/ul Furnas Absolute 0.7 0.1 - 0.7 [facility] k/ul Eos Absolute 0.1 0.0 - 0.5 [facility] k/ul Baso Absolute 0.1 0.0 - 0.2 [facility] k/ul Specimen Anatomical Collection Method Collection Time Receive d Time (Source) Location / / Volume Laterality 09/22/2004 4:50 PM 5 4:51 CDT PM CDT Jose Colin DO LAB_1 Performing Organization Address City/State/ZIP Code Phon e Number [facility] [phone] PENDING SALE TO [facility] [address] [address] documented in this encounter Visit Diagnoses Diagnosis Other specified pre-operative examinatio n - Primary 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
--- OUTSIDE RECORDS SUMMARY | 2022-05-09 13:45 | XMS_ITS | Encounter Summary ---
:1965 Author [facility] Address [address] [address] Care Team Providers Name Role Phone Jose Colin DO Primary Care Provider [phone] Encounter Details Date Type Department Care Team Description 07/15/2004 Orders Only [facility] Radiology Unknown, Physician [address] [facility] [address] [place] [address] [place], [place] [address] (Wo rk) Social History Tobacco Use Types [...] SC 07/15/2004 12:00 AM Results for this FINISHING SUPERVISOR procedure are i n the results section. MAGNETIC SOURCE 07/15/2004 Results for this IMAGING procedure are i n the results section. documented in this encounter Results MRI SC (07/15/2004 12:00 AM FINISHING SUPERVISOR) Anatomical Region Laterality Modality Other Narrative 07/15/2004 12:00 AM FINISHING SUPERVISOR This result has an attachment that is no t available. Ordered by an unspecified provider. Transcriptions Unknown, Physician - 07/15/2004 12:00 AM FINISHING SUPERVISOR Physician Unknown DUMMY/OTHER/AR documented in this encounter Visit Diagnoses Not on filedocumented in this encounter Care Teams Flight Readiness Technician Relationship Specialty Start Date End Date Jose Colin, DO PCP - General 12/24/03 09/17/08 [address] [place] [address] documented as of this encounter
--- OUTSIDE RECORDS SUMMARY | 2022-05-09 13:45 | XMS_ITS | Encounter Summary ---
:1965 Author [facility] Address [address] [address] Care Team Providers Name Role Phone Jose Colin DO Primary Care Provider Reason for Referral Specialty Diagnoses / Procedures Referred By Contact Refer red To Contact Jose Colin DO [address] [place], [place] [address] Referral ID Status Reason Start Date Expiration Date Visits Requ ested Visits Authorized ER FRAMER HELPER Reason for Visit Reason Comments BACK PAIN affects both legs Encounter Details Date Type Department Care Team Description 05/25/2005 Office Visit [facility] Internal [place] LOW BACK DEBRA IN Medicine Jose Allan DO (CHRONIC)>6 WEEKS 205 [facility] [address] (Primary Dx) [place] [address] [place], [place] [phone] [address] Social History Tobacco Use Types Packs/Day Years Used Date Smoking Tobacco: Never Alcohol Use Standard Drinks/Week Comments Yes 0 (1 standard drink = 0.6 oz pure alcoho l) rarely Sex Assigned at Date Recorded Not on file documented as of this encounter Last Filed Vital Signs Vital Sign Reading Time Taken Comments Blood Pressure 126/72 05/25/2005 4:17 PM TIMBER FRAMER HELPER Pulse 72 05/25/2005 4:17 PM TIMBER FRAMER HELPER Temperature - - Respiratory Rate 16 05/25/2005 4:17 PM TIMBER FRAMER HELPER Oxygen Saturation - - Inhaled Oxygen Concentration - - Weight 82.1 kg (181 lb) 05/25/2005 4:17 PM TIMBER FRAMER HELPER Height 160 cm (5' 3) 05/25/2005 4:17 PM TIMBER FRAMER HELPER Body Mass Index 32.06 05/25/2005 4:17 PM TIMBER FRAMER HELPER documented in this encounter Patient Instructions Patient Gwkdbqlzirhv79/15/2005 4:20 PM TIMBER FRAMER HELPER PLEASE STOP AT CHECK OUT DESK BEFORE LEAVING THE CLINIC Check in at the Pharmacy for your prescription(s) to be filled at the Clinic documented in this encounter Progress Notes 05/25/2005 4:20 PM TIMBER FRAMER HELPER SUBJECTIVE: Work comp?: no History of: -back [...] documented in this encounter Care Teams Dye Range Operator Cloth Relationship Specialty Start Date End Date Jose Colin DO PCP - General 12/24/03 09/17/08 [address] [place] [address] documented as of this encounter
--- OUTSIDE RECORDS SUMMARY | 2022-05-09 13:45 | XMS_ITS | Encounter Summary ---
:1965 Author Organization [facility] [address], [place] [address] Care Team Providers Name Role Phone Jose Colin DO Primary Care Provider Encounter Details Date Type Department Care Team Description 07/04/2005 Correspondence [facility] Aravind Jose MD INFORMED CONSENT Plastic Surgery [address] [place] [address] Social History Tobacco Use Types Packs/Day Years Used Date Smoking Tobacco: Never Alcohol Use Standard Drinks/Week Comments Yes 0 (1 standard drink = 0.6 oz pure alcoho l) rarely Sex Assigned at Date Recorded Not on file documented as of this encounter Progress Notes Aravind Jose - 07/04/2005 12:00 AM CONSOLE OPERATOR OLE OPERATOR documented in this encounter Plan of Treatment Not on filedocumented as of this encounter Visit Diagnoses Not on filedocumented in this encounter Care Teams Electroplating Sales Representative Relationship Specialty Start Date End Date Jose Colin DO PCP - General 12/24/03 09/17/[address] [place] [address] documented as of this encounter
--- OUTSIDE RECORDS SUMMARY | 2022-05-09 13:45 | XMS_ITS | Encounter Summary ---
:1965 Author [facility] Address [address] [place] [address] Care Team Providers Name Role Phone Jose Stack DO Primary Care Provider [phone] Reason for Visit Reason Onset Date Comments Refill 02/15/2005 Encounter Details Date Type Department Care Team Description 02/15/2005 Refill [facility] Jose Stack, Refill 205 [facility] [address] [place] [address] [place], [place] [phone] [address] (Wo rk) Social History Tobacco Use [...] Ordering User: RANDALL AVILA >> VERONICA REYES SunFeb 15, 2005 2:10 PM Last fill on 093.05.05 for a quantity of 30 documented in this encounter Plan of Treatment Not on filedocumented as of this encounter Visit Diagnoses Diagnosis Brachial neuritis or radiculitis NOS Brachial neuritis or radiculitis nos documented in this encounter Care Teams Field Representative Relationship Specialty Start Date End Date Jose Stack DO PCP - General 12/24/03 09/17/08 [address] [place] [address] documented as of this encounter
--- OUTSIDE RECORDS SUMMARY | 2022-05-09 13:45 | XMS_ITS | Encounter Summary ---
:1965 Author Organization [facility] Address [address] [address] Care Team Providers Name Role Phone Unassigned, Provider Primary Care Provider Unavailable Encounter Details Date Type Department Care Team Description 07/26/2004 [facility] Gavin Justice MD [address] [place] [address] (Wo rk) Social History Tobacco Use Types Packs/Day Years Used Date Smoking Tobacco: Never Smokeless Tobacco: Never Alcohol Use Standard Drinks/Week Comments Yes 0 (1 standard drink = 0.6 oz pure alcoho l) rarely Sex Assigned at Date Recorded Not on file documented as of this encounter Procedure Notes Jerome Garg - 07/26/2004 12:00 AM J2EE SOFTWARE ENGINEER DATE OF SURGERY: 07/26/2004 STAFF SURGEON: Gavin [...] nerve impingement. Therefore, she is referred to [facility] for evaluation for epidural steroid [...] Justice MD Transcribed: 07/26/2004 14:26:15 Doc #: [id number] cc: Jose Colin DO, Primary/Referring DO NOT SIGN UNLESS PRESENT FOR PROCEDURE I attest that I was present for and participated in the ma portions of this procedure(s) in compliance with the Health Care Financing Administration Teaching Physician Guidelines. Signed Date [facility] Staff Physician 1 Page 2 Patient Name: PADMINI CHOI Visit Date: 07/26/2004 OUTPATIENT OPERATIVE REPORT CONFIDENTIAL MEDICAL RECORD [address] [address] Page 1 Patient: PADMINI CHOI [id number] Date of : 1965 Visit Date: 07/26/2004 OUTPATIENT OPERATIVE REPORT documented in this encounter Plan of Treatment Not on filedocumented as of this encounter Visit Diagnoses Not on filedocumented in this encounter Care Teams Electro Mechanical Designer Relationship Specialty Start Date End Date Unassigned, Provider PCP - General 09/18/[address] [place] [address] documented as of this encounter
--- OUTSIDE RECORDS SUMMARY | 2022-05-09 13:45 | XMS_ITS | Encounter Summary ---
:1965 Author Organization [facility] Address [address] [place] [address] Care Team Providers Name Role Phone Jose Colin DO Primary Care Provider [phone] Encounter Details Date Type Department Care Team Description 11/14/2004 Correspondence External to Jose Colin OW-UP EVALUATION0/ D, DO [facility] [address] [place] [address] (Wo rk) Social History Tobacco [...] on filedocumented in this encounter Care Teams Prick Stitcher Relationship Specialty Start Date End Date Jose Colin, DO PCP - General 12/24/03 09/17/08 [address] [place] [address] documented as of this encounter
--- OUTSIDE RECORDS SUMMARY | 2022-05-09 13:45 | XMS_ITS | Encounter Summary ---
:1965 [facility] Address [address], [place] [address] Care Team Providers Name Role Phone Jose Colin DO Primary Care Provider [phone] Reason for Visit Reason Onset Date Comments RESULTS, TEST 09/26/2004 opened in error Encounter Details Date Type Department Care Team Description 09/23/2004 Telephone [facility] Internal [place], RESULTS, TE ST (opened Medicine Jose Allan DO in error) [facility] [address] [place] [address] [place], [place] [phone] [address] Social History Tobacco Use Types Packs/Day [...] on filedocumented in this encounter Care Teams Big Data Lead Relationship Specialty Start Date End Date Jose Colin DO PCP - General 12/24/03 09/17/08 [address] [place] [address] documented as of this encounter
--- OUTSIDE RECORDS SUMMARY | 2022-05-09 13:45 | XMS_ITS | Encounter Summary ---
:1965 Author Organization [facility] Address [address] [address] Care Team Providers Name Role Phone Jose Colin DO Primary Care Provider [phone] Reason for Visit Reason Comments TOE PAIN--ED right foot jamed her toes in to the door 3rd , 4th 5th toe Encounter Details Date Type Department Care Team Description 06/26/2005 Office Visit [facility] Draper PLAN TAR NERVE LESION Foot and Ankle Surge ry DPM [address] [place] [address] Social History Tobacco Use Types Packs/Day Years Used Date Smoking Tobacco: Never Alcohol Use Standard Drinks/Week Comments Yes 0 (1 standard drink = 0.6 oz pure alcoho l) rarely Sex Assigned at Date Recorded Not on file documented as of this encounter Last Filed Vital Signs Vital Sign Reading Time Taken Comments Blood Pressure 121/71 06/26/2005 8:58 AM TRANSPORTATION AID Pulse 84 06/26/2005 8:58 AM TRANSPORTATION AID Temperature 36.2 ??C (97.2 ??F) 06/26/2005 8:58 AM TRANSPORTATION AID Respiratory Rate - - Oxygen Saturation - - Inhaled Oxygen Concentration - - Weight - - Height - - Body Mass Index - - documented in this encounter Progress Notes 06/26/2005 9:10 AM TRANSPORTATION AID This office note has been dictated. MARÍA [...] progress. ?? A cc: Jose Colin DO SPORTATION AID documented in this encounter Plan of Treatment Not on filedocumented as of this encounter Visit Diagnoses Diagnosis Lesion of plantar nerve documented in this encounter Care Teams Template Checker Relationship Specialty Start Date End Date Jose Colin, PCP - General 12/24/03 09/17/08 [address] [place] [address] documented as of this encounter
--- OUTSIDE RECORDS SUMMARY | 2022-05-09 13:45 | XMS_ITS | Encounter Summary ---
:1965 Author Organization [facility] Address [address] [place] [address] Care Team Providers Name Role Phone Jose Colin DO Primary Care Provider [phone] Encounter Details Date Type Department Care Team Description 06/01/2005 Orders Only [facility] Unknown, Physician [address] [facility] [address] [place] [address] [place], [place] [phone] (Wo rk) Social History Tobacco Use Types Packs/Day Years Used Date Smoking Tobacco: Never Alcohol Use Standard Drinks/Week Comments Yes 0 (1 standard drink = 0.6 oz pure alcoho l) rarely Sex Assigned at Date Recorded Not on file documented as of this encounter Procedure Notes Staci Cohen - 06/01/2005 12:00 AM CSTAssociated Order(s): MRI SC SCORING MACHINE OPERATOR documented in this encounter Plan of Treatment Not on filedocumented as of this encounter Procedures Procedure Name Priority Date/Time Associated Diagnosis Comme nts MRI SC 06/01/2005 12:00 AM Results for this GUM SCORING MACHINE OPERATOR procedure are i n the results section. MAGNETIC SOURCE 06/01/2005 Results for this IMAGING procedure are i n the results section. documented in this encounter Results MRI SC (06/01/2005 12:00 AM GUM SCORING MACHINE OPERATOR) Anatomical Region Laterality Modality Other Narrative 06/01/2005 12:00 AM GUM SCORING MACHINE OPERATOR This result has an attachment that is no t available. Ordered by an unspecified provider. Transcriptions Staci Cohen - 06/01/2005 12:[address] Physician Unknown DUMMY/OTHER/AR documented in this encounter Visit Diagnoses Not on filedocumented in this encounter Care Teams Captain Cannery Tender Relationship Specialty Start Date End Date Jose Colin DO PCP - General 12/24/03 09/17/08 [address] [place] [address] documented as of this encounter
--- OUTSIDE RECORDS SUMMARY | 2022-05-09 13:46 | XMS_ITS | Encounter Summary ---
:1965 Author Organization [facility] Address [address] [place] [address] Care Team Providers Name Role Phone Jose Colin DO Primary Care Provider [phone] Encounter Details Date Type Department Care Team Description 12/24/2003 Office Visit [facility] Internal Med [place] Jose Colin DERMATITIS NOS [address] [place] [address] 239 [facility] [phone] [place] [address] (Wo rk) Social History Tobacco [...] Body Mass Index 30.18 09/02/2002 2:00 PM WATER WELL DRILLER documented in this encounter Progress Notes 12/24/2003 [...] Status reviewed? (see History Social-Substance) -YES NEVER spa attendant offered? -NOT APPLICABLE. Aspirin taken daily? -NO BP was taken on the LEFT arm. BP cuff size used? -Adult Regular Health Education given? -NO. Contact phone number [phone] (home) [phone] (work), alternate phone number- Schuyler ThorpeMONSE 12/24/2003 4:21 PM Current outpatient prescriptions: OMEPRAZOLE (PRILOSEC) 20MG ORAL CAPS,1 tablet daily,Disp: 30,Rfl: 99 FLUOCINONIDE (LIDEX) 0.05% OINTMENT,thin layer to rash on feet bid for up to three weeks,Disp: qs,Rfl: 0 NAPROXEN (NAPROSYN) 500MG ORAL TABS,one po bid,Disp: 14,Rfl: 0 Erythromycin Jose Colin D - 12/24/2003 12:00 AM CDT<TRID:SPI> Doc Type<DT:IM> PT Name<NAME:Megan Choi> <MRNo:[id number]> Dict ID<[id number]> <29:> Pt Tel #<30:> <28:> <BillNo:> Admit Date<4:12/24/2003> DD<5:> Svc Date<31:12/24/2003> <JobNo:[id number]> <TS:> <CC:> <21:0> Doc Status<RptStat:> Appt Clinic<1003:SP> [...] cause documented in this encounter Care Teams Machine Tack Puller Relationship Specialty Start Date End Date Jose Colin, DO PCP - General 12/24/03 09/17/[address] [place] [address] documented as of this encounter
--- OUTSIDE RECORDS SUMMARY | 2022-05-09 13:46 | XMS_ITS | Encounter Summary ---
:1965 Author Organization [facility] Address [address] [place] [address] Care Team Providers Name Role Phone Greyson Gonzalez MD Primary Care Provider Encounter Details Date Type Department Care Team Description 09/16/2002 Telephone [facility] Internal [facility] iciGreyson Johnson MD 205 [facility] [address] [place] [address] [place], [place] [phone] (Wo rk) Social History Tobacco Use Types [...] on filedocumented in this encounter Care Teams Source Water Protection Specialist Relationship Specialty Start Date End Date Greyson Gonzalez MD PCP - General 04/15/01 12/23/03 [address] [place] [address] documented as of this encounter
--- OUTSIDE RECORDS SUMMARY | 2022-05-09 13:46 | XMS_ITS | Encounter Summary ---
:1965 [facility] Address [address], [place] [address] Care Team Providers Name Role Phone Greyson Gonzalez MD Primary Care Provider Encounter Details Date Type Department Care Team Description 09/08/2002 Orders Only [place] Blank Rider APRN, SUBCONTRACT MANAGER 205 [facility] [address] [place] [address] [place] [address] (Wo rk) Social History Tobacco [...] AM Res ults for this AND HDL BROOCH AND BRACELET MAKER procedure are i n the results section. GLUCOSE - FASTING > Routine 09/08/2002 7:31 AM Re sults for this 8 HRS FASTING BROOCH AND BRACELET MAKER procedure are in the results section. documented in this encounter Results GLUCOSE - FASTING > 8 HRS FASTING (09/08/2002 7:31 AM BROOCH AND BRACELET MAKER) P athologist Signature Glucose 94 70 - 110 [facility] mg/dl Hours Fasting 12 hours [facility] Specimen Anatomical Collection Method Collection Time Receive d Time (Source) Location / / Volume Laterality 09/08/2002 7:31 AM 3 7:32 BROOCH AND BRACELET MAKER AM BROOCH AND BRACELET MAKER Blank Perez APRN, SUBCONTRACT MANAGER LAB_1 Performing Organization Address City/State/[facility] Code Phon e Number [facility] [phone] [address] (ABNORMAL) CHOLESTEROL, TOTAL AND HDL (09/08/2002 7:31 AM BROOCH AND BRACELET MAKER) athologist Signature Cholesterol 151 <200 mg/dl [facility] HDL 33 (L) >35 mg/dl [facility] Specimen Anatomical Collection Method Collection Time Receive d Time (Source) Location / / Volume Laterality 09/08/2002 7:31 AM 3 7:32 BROOCH AND BRACELET MAKER AM BROOCH AND BRACELET MAKER Blank Perez APRN, SUBCONTRACT MANAGER LAB_1 Performing Organization Address [facility] Code Phon e Number [facility] [phone] [address] documented in this encounter Visit Diagnoses Not on filedocumented in this encounter Care Teams Editorial Project Manager Relationship Specialty Start Date End Date Greyson Gonzalez MD PCP - General 04/15/01 12/23/03 [address] [place] [address] documented as of this encounter
--- OUTSIDE RECORDS SUMMARY | 2022-05-09 13:46 | XMS_ITS | Encounter Summary ---
:1965 [facility] Address [address], [place] [address] Care Team Providers Name Role Phone Greyson Gonzalez MD Primary Care Provider Encounter Details Date Type Department Care Team Description 09/08/2002 Orders Only [place] Blank Rider APRN, ICEBOX WORKER 205 [facility] [address] [place] [address] [place] [address] (Wo rk) Social History Tobacco [...] PM Re sults for this 12 HOUR BREAK OFF WORKER procedure are i n the results section. documented in this encounter Results (ABNORMAL) CHOLESTEROL LIPID PANEL FAST >12HR FAST (09/08/2002 4:51 PM BREAK OFF WORKER) P athologist Signature Cholesterol 152 <200 mg/dl [facility] Triglyceride 82 <200 mg/dl [facility] HDL 34 (L) >35 mg/dl [facility] LDL, Calc. 102 mg/dl [facility] Hours Fasting 12 hours [facility] Specimen Anatomical Collection Method Collection Time Receive d Time (Source) Location / / Volume Laterality 09/08/2002 4:51 PM 3 4:51 BREAK OFF WORKER PM BREAK OFF WORKER Blank Perez BORING MILL OPERATOR, ICEBOX WORKER LAB_1 Performing Organization Address City/State/ZIP Code Phon e Number [facility] [phone] [facility] [address] [address] documented in this encounter Visit Diagnoses Not on filedocumented in this encounter Care Teams Peat Shredder Tender Relationship Specialty Start Date End Date Greyson Gonzalez MD PCP - General 04/15/01 12/23/03 [address] [place], [place] [phone] documented as of this encounter
--- OUTSIDE RECORDS SUMMARY | 2022-05-09 13:46 | XMS_ITS | Encounter Summary ---
:1965 Author Organization [facility] Address [address], [place] [address] Care Team Providers Name Role Phone Greyson Gonzalez MD Primary Care Provider Encounter Details Date Type Department Care Team Description 08/22/2002 Office Visit [facility] Internal Greyson Gonzalez, JOINT PAIN-SHLDER; Medicine PAIN IN LIMB 205 [facility] [address] [place] [address] [place], [place] [phone] (Wo rk) Social History Tobacco Use Types Packs/Day Years Used Date Smoking Tobacco: Never Assessed Sex Assigned at Date Recorded Not on file documented as of this encounter Last Filed Vital Signs Vital Sign Reading Time Taken Comments Blood Pressure 108/56 08/22/2002 4:20 PM IT TEACHER Pulse 72 08/22/2002 4:20 PM IT TEACHER Temperature - - Respiratory Rate 12 08/22/2002 4:20 PM IT TEACHER Oxygen Saturation - - Inhaled Oxygen Concentration - - Weight 71.2 kg (157 lb) 08/22/2002 4:20 PM IT TEACHER Height - - Body Mass Index - - documented in this encounter Progress Notes 08/22/2002 4:20 PM IT TEACHER Megan Choi is here today for R shoulder pain. Are you having other pain today, that you want to discuss with the provider? -NO Preventive Services up to date? -YES Immunizations up to date? -YES Do you ever feel physically threatened or emotionally afraid? -NO Tobacco Status reviewed? (see History Social-Substance) -YES plant attendant or assistant operator offered? -NOT APPLICABLE. Aspirin taken daily? -NO BP was taken on the RIGHT arm. Large cuff used? -NO Health Education given? -NO. Current prescriptions: MULTIPLE VITAMIN TABS OR, 1 qd, D: 30, R: 0 ACIPHEX 20MG ORAL TABS, TAKE 1 TABLET by mouthDAILY, D: 30, R: 0 Erythromycin Contact phone number [phone] (home) [phone] (work), alternate phone number . 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 OBJECTIVE: Blood pressure 108/56. Pulse 72. Respiratory [...] Right shoulder and upper extremity pain. cc: TEACHER Greyson Gonzalez - 08/22/2002 12:00 AM IT TEACHER TEACHER documented in this encounter Plan of Treatment Not on filedocumented as of this encounter Visit Diagnoses Diagnosis Pain in joint, shoulder region Pain in limb documented in this encounter Care Teams Farmworker Diversified Crops Relationship Specialty Start Date End Date Greyson Gonzalez MD PCP - General 04/15/01 12/23/03 [facility] [place] [address] documented as of this encounter
--- OUTSIDE RECORDS SUMMARY | 2022-05-09 13:46 | XMS_ITS | Encounter Summary ---
:1965 Author Organization [facility] Address [address], [place] [address] Care Team Providers Name Role Phone Jose Colin DO Primary Care Provider [phone] Encounter Details Date Type Department Care Team Description 04/20/2004 Telephone [facility] Internal [facility] icine Jose Colin, [address] [place] [address] [address] [phone] [place] [address] (Wo rk) Social History Tobacco Use Types Packs/Day Years Used Date Smoking Tobacco: Never Alcohol Use Standard Drinks/Week Comments Not Asked 0 (1 standard drink = 0.6 oz pure alcoho l) Sex Assigned at Date Recorded Not on file documented as of this encounter Progress Notes Jose Colin - 04/20/2004 12:00 AM FARM HELPER HELPER documented in this encounter Plan of Treatment Not on filedocumented as of this encounter Visit Diagnoses Not on filedocumented in this encounter Care Teams Hand Crown Pouncer Relationship Specialty Start Date End Date Jose Colin, DO PCP - General 12/24/03 09/17/08 [address] [place] [address] documented as of this encounter
--- OUTSIDE RECORDS SUMMARY | 2022-05-09 13:46 | XMS_ITS | Encounter Summary ---
:1965 Author Organization [facility] Address [address] [place] [address] Care Team Providers Name Role Phone Jose Colin DO Primary Care Provider [phone] Encounter Details Date Type Department Care Team Description 04/08/2004 Office Visit [facility] Internal Jose Colin DERM ATITIS NOS; Medicine D, DO SCIATICA(ACUTE); 205 [facility] [address] [place] [address] [place], [place] [phone] [address] (Wo rk) Social History Tobacco Use [...] Body Mass Index 31.09 09/02/2002 2:00 PM REMELT FURNACE EXPEDITER documented in this encounter Progress Notes 04/08/2004 [...] Status reviewed? (see History Social-Substance) -YES NEVER refueling ramp attendant offered? -NOT APPLICABLE. Aspirin taken daily? -NO BP was taken on the LEFT arm. BP cuff size used? -Adult Regular Health Education given? -NO. Contact phone number [phone] (home) [phone] (work), alternate phone number- Schuyler FranklinMONSE frye 04/08/2004 4:27 PM Current outpatient prescriptions: OMEPRAZOLE [...] reflux documented in this encounter Care Teams Automotive Generator Repairer Relationship Specialty Start Date End Date Jose Colin, DO PCP - General 12/24/03 09/17/08 [address] [place] [address] documented as of this encounter
--- OUTSIDE RECORDS SUMMARY | 2022-05-09 13:46 | XMS_ITS | Encounter Summary ---
:1965 Author [facility] Address [address] [place] [address] Care Team Providers Name Role Phone Greyson Gonzalez MD Primary Care Provider Encounter Details Date Type Department Care Team Description 11/21/2001 Office Visit [facility] Ailyn Silva ey R [place] [address] [place], [place] [address] (Wo rk) Social History Tobacco Use Types Packs/Day Years Used Date Smoking Tobacco: Never Assessed Sex Assigned at Date Recorded Not on file documented as of this encounter Plan of Treatment Not on filedocumented as of this encounter Visit Diagnoses Diagnosis Myopia documented in this encounter Care Teams Hide Dyer Relationship Specialty Start Date End Date Greyson Gonzalez MD PCP - General 04/15/01 12/23/03 [address] [place], [place] [phone] documented as of this encounter
--- OUTSIDE RECORDS SUMMARY | 2022-05-09 13:46 | XMS_ITS | Encounter Summary ---
:1965 Author Organization [facility] Address [address] [place] [address] Care Team Providers Name Role Phone Greyson Gonzalez MD Primary Care Provider Reason for Visit Reason Comments DIZZINESS Encounter Details Date Type Department Care Team Description 03/05/2002 Telephone [facility]line Dereck Dacosta RN DIZZINESS [address] [place], [place] [address] [facility] [phone] [place] [address] Social History Tobacco Use Types Packs/Day Years [...] on filedocumented in this encounter Care Teams Care Asst Relationship Specialty Start Date End Date Greyson Gonzalez MD PCP - General 04/15/01 12/23/03 [address] [place] [address] documented as of this encounter
--- OUTSIDE RECORDS SUMMARY | 2022-05-09 13:46 | XMS_ITS | Encounter Summary ---
:1965 Author Organization [facility] Address [address] [place] [address] Care Team Providers Name Role Phone Greyson Gonzalez MD Primary Care Provider Encounter Details Date Type Department Care Team Description 08/26/2002 Correspondence None Unknown, Physici an STEVEN [address] [place], [place] [address] (Wo rk) Social History Tobacco Use Types Packs/Day Years Used Date Smoking Tobacco: Never Alcohol Use Standard Drinks/Week Comments Not Asked 0 (1 standard drink = 0.6 oz pure alcoho l) Sex Assigned at Date Recorded Not on file documented as of this encounter Progress Notes Unknown, Physician - 08/26/2002 12:00 AM GALLEY STRIPPER documented in this encounter Plan of Treatment Not on filedocumented as of this encounter Visit Diagnoses Not on filedocumented in this encounter Care Teams Brick Pointer Relationship Specialty Start Date End Date Greyson Gonzalez MD PCP - General 04/15/01 12/23/03 [address] [place], [place] [address] documented as of this encounter
--- OUTSIDE RECORDS SUMMARY | 2022-05-09 13:46 | XMS_ITS | Encounter Summary ---
:1965 [facility] Address [address] [address] Care Team Providers Name Role Phone Greyson Gonzalez MD Primary Care Provider Encounter Details Date Type Department Care Team Description 09/02/2002 Orders Only [facility] Blank Giraldo, DOOR OPERATOR, CELL OPERATION SUPERVISOR 205 [facility] [address] [place] [address] [place], [place] [phone] (Wo rk) Social History Tobacco Use Types [...] 09/02/2002 12:00 AM Res ults for this ROLLED HAM LACER procedure are i n the results section. documented in this encounter Results PAP TEST, ROUTINE (09/02/2002 12:00 AM ROLLED HAM LACER) Component Value Ref Test Analysis Performed At [facility] Range Method Time Signature Cytology, Pap (NOTE) REGIONS Applications Tester Cytology Report Patient Name: PADMINI CHOI Taken: 09/02/02 Received: 09/03/02 Reported: 09/10/02 Physician(s): BLANK GIRALDO ([id number]) ? [id number] ? Source of Specimen Liquid routine Pap, cervical/endocervical: ? Specimen Adequacy ? Satisfactory for evaluation. ??Endocervical component absent. Final Cytologic Interpretation/Result NEGATIVE FOR INTRAEPITHELIAL LESION OR MALIGNANCY (NILM) sv//07/14 Electronically Signed Out By TARIQ Castro (ASCP) VIRY JOHNSON ??CT(ASCP) TARIQ Castro (ASCP) ? Pap Smear History ? Date of Last Menstrual Period: ? 08/20/02 ? Contraceptive History: ? Control Pills ? Other Clinical Conditions: ? HPV reflex testing requested with interpretation of ASCUS Specimen (Source) Anatomical Collection Method Collection Time Re ceived Time Location / / Volume Laterality 09/02/2002 09/03/2002 2:27 PM ROLLED HAM LACER Blank Giraldo APRN, CELL OPERATION SUPERVISOR LAB_1 Performing Organization Address City/State/ZIP Code Phon e Number [address] [address] [place], [place] [phone] documented in this encounter Visit Diagnoses Not on filedocumented in this encounter Care Teams Forensic Sergeant Relationship Specialty Start Date End Date Greyson Gonzalez MD PCP - General 04/15/01 12/23/03 [address] [place] [address] documented as of this encounter
--- OUTSIDE RECORDS SUMMARY | 2022-05-09 13:46 | XMS_ITS | Encounter Summary ---
:1965 Author Organization [facility] Address [address] [place] [address] Care Team Providers Name Role Phone Greyson Gonzalez MD Primary Care Provider Encounter Details Date Type Department Care Team Description 05/15/2003 Office Visit [facility] Mammogram I, Sp S CREENING MAMM-MAILG Mammography NEOPL-OTHER (Primary [address] [facility]) [place] [address] Social History Tobacco Use Types [...] 10:42 A cc: AUDREY Moffett Radiology SP ARD/STEWARDESS DINING ROOM documented in this encounter Plan of [...] cc: AUDREY Moffett Radiology SP Blank Perez COMPTOMETRIST, STUCCO MASON RAD_BI documented in this encounter Visit Diagnoses Diagnosis Other screening mammogram - Primary documented in this encounter Care Teams Bond Runner Relationship Specialty Start Date End Date Greyson Gonzalez MD PCP - General 04/15/01 12/23/03 [address] [place] [address] documented as of this encounter
--- OUTSIDE RECORDS SUMMARY | 2022-05-09 13:46 | XMS_ITS | Encounter Summary ---
:1965 [facility] Address [address] [address] Care Team Providers Name Role Phone Greyson Gonzalez MD Primary Care Provider Encounter Details Date Type Department Care Team Description 01/13/2002 Orders Only [facility] Internal Med Juanito Chandra MD [address] [place] [address] Social History Tobacco Use Types Packs/Day Years Used Date Smoking Tobacco: Never Assessed Sex Assigned at Date Recorded Not on file documented as of this encounter Plan of Treatment Not on filedocumented as of this encounter Visit Diagnoses Not on filedocumented in this encounter Care Teams Community Facilitator Relationship Specialty Start Date End Date Greyson Gonzalez MD PCP - General 04/15/01 12/23/03 [address] [place] [address] documented as of this encounter
--- OUTSIDE RECORDS SUMMARY | 2022-05-09 13:46 | XMS_ITS | Encounter Summary ---
:1965 Author Organization [facility] Address [address] [place] [address] Care Team Providers Name Role Phone Greyson Gonzalez MD Primary Care Provider Encounter Details Date Type Department Care Team Description 01/24/2002 Office Visit [facility] Internal OfSchuyler moore, ACUTE Medicine PHARYNGITIS(S[place] [address] THROAT) [place] [address] [place], [place] [phone] (Wo rk) Social History Tobacco Use Types [...] pharyngitis. PLAN: 1. Discussed with patient. Advised [id number] cough syrup and Tylenol. 2. Prescription for [...] pharyngitis documented in this encounter Care Teams Stem Crusher Relationship Specialty Start Date End Date Greyson Gonzalez MD PCP - General 04/15/01 12/23/03 [address] [place] [address] documented as of this encounter
--- OUTSIDE RECORDS SUMMARY | 2022-05-09 13:46 | XMS_ITS | Encounter Summary ---
:1965 [facility] Address [address] [address] Care Team Providers Name Role Phone Greyson Gonzalez MD Primary Care Provider Encounter Details Date Type Department Care Team Description 01/03/2002 Office Visit [facility] Internal Juanito Panda SEBACE OUS CYST; Medicine ESOPHAGEAL REFLUX [address] [place] [address] Social History Tobacco Use Types Packs/Day [...] reflux documented in this encounter Care Teams Broiler Supervisor Relationship Specialty Start Date End Date Greyson Gonzalez MD PCP - General 04/15/01 12/23/03 [address] [place] [address] documented as of this encounter
--- OUTSIDE RECORDS SUMMARY | 2022-05-09 13:46 | XMS_ITS | Encounter Summary ---
:1965 [facility] Address [address], [place] [address] Care Team Providers Name Role Phone Greyson Gonzalez MD Primary Care Provider Encounter Details Date Type Department Care Team Description 2002 Office Visit [facility] Lebron Mcgrath MD [facility] [...] skin documented in this encounter Care Teams Rubber Gasket Inspector Trimmer Relationship Specialty Start Date End Date Greyson Gonzalez MD PCP - General 04/15/01 12/23/03 [address] [place] [address] documented as of this encounter
--- OUTSIDE RECORDS SUMMARY | 2022-05-09 13:46 | XMS_ITS | Encounter Summary ---
:1965 [facility] Address [address] [address] Care Team Providers Name Role Phone Greyson Gonzalez MD Primary Care Provider Encounter Details Date Type Department Care Team Description 09/11/2002 Office Visit [facility] Internal [facility] iciGreyson Johnson MD [address] [place] [address] [address] [place] [address] [place], [place] [phone] (Wo rk) Social History Tobacco Use Types Packs/Day Years Used Date Smoking Tobacco: Never Alcohol Use Standard Drinks/Week Comments Not Asked 0 (1 standard drink = 0.6 oz pure alcoho l) Sex Assigned at Date Recorded Not on file documented as of this encounter Progress Notes Greyson Gonzalez - 09/11/2002 12:00 AM JDE DEVELOPER DEVELOPER documented in this encounter Plan of Treatment Not on filedocumented as of this encounter Visit Diagnoses Not on filedocumented in this encounter Care Teams Enterprise Architect Relationship Specialty Start Date End Date Greyson Gonzalez MD PCP - General 04/15/01 12/23/03 [address] [place] [address] documented as of this encounter
--- OUTSIDE RECORDS SUMMARY | 2022-05-09 13:46 | XMS_ITS | Encounter Summary ---
:1965 Author Organization [facility] Address [address] [address] Care Team Providers Name Role Phone Greyson Gonzalez MD Primary Care Provider Encounter Details Date Type Department Care Team Description 09/02/2002 Office Visit [facility] Obstetrics Blank Perez GYNECOLO GIC EXAMINATION; and Gynecology SAND WHEELER, LABORER STARCH FACTORY SCREENING MAL NEOP-CERVIX; [address] [facility] [place] [address] [place], [place] [phone] [address] Social History Tobacco Use Types Packs/Day Years Used Date Smoking Tobacco: Never Alcohol Use Standard Drinks/Week Comments Not Asked 0 (1 standard drink = 0.6 oz pure alcoho l) Sex Assigned at Date Recorded Not on file documented as of this encounter Last Filed Vital Signs Vital Sign Reading Time Taken Comments Blood Pressure 102/56 09/02/2002 2:00 PM EDISCOVERY PROJECT MANAGER Pulse 64 09/02/2002 2:00 PM EDISCOVERY PROJECT MANAGER Temperature - - Respiratory Rate - - Oxygen Saturation - - Inhaled Oxygen Concentration - - Weight 69.8 kg (153 lb 12.8 oz) 09/02/2002 2:00 PM EDISCOVERY PROJECT MANAGER Height 157.5 cm (5' 2) 09/02/2002 2:00 PM EDISCOVERY PROJECT MANAGER Body Mass Index 28.13 09/02/2002 2:00 PM EDISCOVERY PROJECT MANAGER documented in this encounter Progress Notes 09/02/2002 2:00 PM EDISCOVERY PROJECT MANAGER Megan Choi is here today for pe [...] Final Value: See Separate Report Performed at [facility] No results found for this basename: CHOLESTEROL CHOLESTEROL-L (mg/dl) Date Value Low High Status 03/28/2001 225* <200 Final Mammogram done? -yes awile ago. Bone Density study done? -No testing done. Do you ever feel physically threatened or emotionally afraid -NO Tobacco Status reviewed? (see History Social-Substance) -NO elevator attendant offered? -DECLINED. Aspirin taken daily? - NO Health Education given? -NO. Patient's phone [phone] (home) [phone] (work) Thania Yañez LPN 09/02/2002 2:24 PM Current prescriptions: MULTIPLE VITAMIN TABS OR, 1 qd, D: 30, R: 0 ACIPHEX 20MG ORAL TABS, TAKE 1 TABLET by mouthDAILY, D: 30, R: 0 allergies Erythromycin Blank Perez - 09/02/2002 12:00 AM CSTSUBJECTIVE: The patient [...] p.r.n. IN SUMMARY: Routine health maintenance cc: COVERY PROJECT MANAGER documented in this encounter Plan of Treatment Not on filedocumented as of this encounter Visit Diagnoses Diagnosis Gynecological examination Screening for malignant neoplasm of the cervix Routine general medical examination at [facility] Routine general medical examination at [facility] facility documented in this encounter Care Teams Dumpster Operator Relationship Specialty Start Date End Date Greyson Gonzalez MD PCP - General 04/15/01 12/23/03 [address] [place] [address] documented as of this encounter
--- OUTSIDE RECORDS SUMMARY | 2022-05-09 13:46 | XMS_ITS | Encounter Summary ---
:1965 Author Organization [facility] Address [address], [place] [address] Care Team Providers Name Role Phone Greyson Gonzalez MD Primary Care Provider Encounter Details Date Type Department Care Team Description 09/12/2002 Office Visit [facility] Internal Greyson Gonzalez, JOINT PAIN-KAMARI (Primary Dx); Medicine PAIN IN LIMB 205 [facility] [address] [place] [address] [place], [place] [phone] Social History Tobacco Use Types Packs/Day Years Used Date Smoking Tobacco: Never Alcohol Use Standard Drinks/Week Comments Not Asked 0 (1 standard drink = 0.6 oz pure alcoho l) Sex Assigned at Date Recorded Not on file documented as of this encounter Last Filed Vital Signs Vital Sign Reading Time Taken Comments Blood Pressure 108/60 09/12/2002 4:20 PM INSIDE SALES ADVISOR Pulse 66 09/12/2002 4:20 PM INSIDE SALES ADVISOR Temperature - - Respiratory Rate 16 09/12/2002 4:20 PM INSIDE SALES ADVISOR Oxygen Saturation - - Inhaled Oxygen Concentration - - Weight 69.9 kg (154 lb) 09/12/2002 4:20 PM INSIDE SALES ADVISOR Height - - Body Mass Index 28.17 09/02/2002 2:00 PM INSIDE SALES ADVISOR documented in this encounter Progress Notes 09/12/2002 4:20 PM INSIDE SALES ADVISOR Megan Choi is here today for f/u R shoulder pain. Had steroid inj. only provided minimal relief for a few days, per pt. Are you having other pain today, that you want to discuss with the provider? -{PAIN YES/NO:82589} Preventive Services up to date? -{YES/NO NEEDS:26423} Immunizations up to date? -{YES/NO,NEEDS:08295} Do you ever feel physically threatened or emotionally afraid? -NO Tobacco Status reviewed? (see History Social-Substance) -YES crew mess attendant offered? -NOT APPLICABLE. Aspirin taken daily? -NO BP was taken on the RIGHT arm. Large cuff used? -NO Health Education given? -{YES/NO:10407}. Contact phone number [phone] (home) [phone] (work), alternate phone number . Esmer MONSE Berger 09/12/2002 4:21 PM Greyson Gonzalez MD Erythromycin Current prescriptions: VANIQA CREA 13.9 % EX, apply bid, D: 1 tube, R: 3 MULTIPLE VITAMIN TABS OR, 1 qd, D: 30, R: 0 ACIPHEX 20MG ORAL TABS, TAKE 1 TABLET by mouthDAILY, D: 30, R: 0 Greyson Gonzalez J - 09/12/2002 12:00 AM CSTSUBJECTIVE: The patient [...] RIGHT SHOULDER AND UPPER EXTREMITY PAIN cc: DE SALES ADVISOR documented in this encounter Procedure Notes Romie Montes - 09/12/2002 12:00 AM CSTAssociated Order(s): SHOULDER [...] Time Received Time / Laterality Volume Transcriptions Socratesmichelekhadra Romie - 09/12/2002 12:00 AM C STCLINICAL DATA: PAIN EXAMINATION: IN SUMMARY: RIGHT SHOULDER, 09/12/02. Normal. Romie Boyle MD cc: Greyson Gonzalez MD Radiology SP Greyson Gonzalez MD RAD_1 documented in this encounter Visit Diagnoses Diagnosis Pain in joint, shoulder region - Primary Pain in limb documented in this encounter Care Teams Grades 1 Through 6 Teacher Relationship Specialty Start Date End Date Greyson Gonzalez MD PCP - General 04/15/01 12/23/03 [address] [place] [address] documented as of this encounter
--- OUTSIDE RECORDS SUMMARY | 2022-05-09 13:46 | XMS_ITS | Encounter Summary ---
:1965 Author [facility] Address [address] [address] Care Team Providers Name Role Phone Greyson Gonzalez MD Primary Care Provider Encounter Details Date Type Department Care Team Description 08/26/2002 Office Visit [facility] Internal Med Jose Witt, BURSITIS NEC [address] [place] [address] [address] [facility] [phone] [place] [phone] (Wo rk) Social History Tobacco Use Types Packs/Day Years Used Date Smoking Tobacco: Never Alcohol Use Standard Drinks/Week Comments Not Asked 0 (1 standard drink = 0.6 oz pure alcoho l) Sex Assigned at Date Recorded Not on file documented as of this encounter Last Filed Vital Signs Vital Sign Reading Time Taken Comments Blood Pressure 110/56 08/26/2002 4:20 PM CELL ROOM SUPERVISOR Pulse 68 08/26/2002 4:20 PM CELL ROOM SUPERVISOR Temperature 36.2 ??C (97.2 ??F) 08/26/2002 4:20 PM CELL ROOM SUPERVISOR Respiratory Rate 20 08/26/2002 4:20 PM CELL ROOM SUPERVISOR Oxygen Saturation - - Inhaled Oxygen Concentration - - Weight - - Height - - Body Mass Index - - documented in this encounter Progress Notes 08/26/2002 4:20 PM CELL ROOM SUPERVISOR Megan Choi is here today for Injection R shoulder Are you having other pain today, that you want to discuss with the provider? -YES Preventive Services up to date? -{YES/NO NEEDS:91073} Immunizations up to date? -{YES/NO,NEEDS:56938} Do you ever feel physically threatened or emotionally afraid? -NO Tobacco Status reviewed? (see History Social-Substance) -YES animal ride attendant offered? -NOT APPLICABLE. Aspirin taken daily? -NO BP was taken on the LEFT arm. Large cuff used? -NO Health Education given? -NO. Contact phone number [phone] (home) [phone] (work), alternate phone number . Schuyler ThorpeMONSE [...] IN SUMMARY: BURSITIS OF THE SHOULDER cc: ROOM SUPERVISOR documented in this encounter Plan of Treatment Not on filedocumented as of this encounter Visit Diagnoses Diagnosis Other bursitis disorders documented in this encounter Care Teams Finishing Technician Relationship Specialty Start Date End Date Greyson Gonzalez MD PCP - General 04/15/01 12/23/03 [address] [place] [address] documented as of this encounter
--- OUTSIDE RECORDS SUMMARY | 2022-05-09 13:46 | XMS_ITS | Encounter Summary ---
:1965 Author Organization [facility] Address [address] [address] Care Team Providers Name Role Phone Greyson Gonzalez MD Primary Care Provider Encounter Details Date Type Department Care Team Description 10/14/2001 Orders Only Yeyo Colin, DO [address] [place] [address] (Wo rk) Social History Tobacco [...] City/State/ZIP Code Phon e Number [facility] [phone] [facility] [address] [address] (ABNORMAL) UA MICRO IF (10/14/2001 1:44 PM CDT) P athologist Signature Appr Yellow [facility] Appr Clear [facility] Sp Gr 1.010 1.005 - [facility] 1.030 Leuk Sml (A) [facility] Nitr Neg [facility] pH 7.0 4.5 - 8.0 [facility] Prot Neg mg/dl [facility] Gluc Neg mg/dl [facility] Ket Neg mg/dl [facility] Urob 0.2 0.2 - 1.0 [facility] EU/dl Bili Neg [facility] Blood Tr (A) [facility] Specimen Anatomical Collection Method Collection Time Receive d Time (Source) Location / / Volume Laterality 10/14/2001 1:44 PM 2 1:45 CDT PM CDT Jose Colin DO LAB_1 Performing Organization Address City/State/[facility] Code Phon e Number [facility] [phone] [address] documented in this encounter Visit Diagnoses Not on filedocumented in this encounter Care Teams Food Adviser Relationship Specialty Start Date End Date Greyson Gonzalez MD PCP - General 04/15/01 12/23/03 [address] [place] [address] documented as of this encounter
--- OUTSIDE RECORDS SUMMARY | 2022-05-09 13:46 | XMS_ITS | Encounter Summary ---
:1965 Author [facility] Address [address] [address] Care Team Providers Name Role Phone Greyson Gonzalez MD Primary Care Provider Encounter Details Date Type Department Care Team Description 2002 Orders Only [facility] Lebron Booth MD ANGELA IGN CARLO SKIN ARM Social History Tobacco Use Types Packs/Day Years Used Date Smoking Tobacco: Never Assessed Sex Assigned at Date Recorded Not on file documented as of this encounter Plan of Treatment Not on filedocumented as of this encounter Procedures Procedure Name Priority Date/Time Associated Diagnosis Comme [facility] DERMATOPATHOLOGY Routine 2002 Benign Carlo Skin Arm Resu lts for this procedure are in the resu lts section. documented in this encounter Results DERMATOPATHOLOGY (2002) Component Value Ref Test Analysis Performed At [facility] Method Time Signature Dermatopathology [facility] DERMATOP[facility]OLOG[facility] Patient: MEGAN CHOI ?? : 1965 Med Rec: [id number] Date of BX: 2002 Date Acc: 03/28/2002 [...] ? ARM, UPPER, RIGHT : DERMATOFIBROMA SNOMED-T: ??T-31827 SNOMED-M: ??M-95700 ICD9-CM: ??216.6 Eddie Ballesteros M.D./Pathologist Specimen (Source) Anatomical Location Collection Method / Collectio n Time Received Time / Laterality Volume 2002 Lebron Booth MD PAPS Performing Organization Address City/State/[facility] Code Phon e Number [facility] DERMATOPATHOLOGY [address] [place] [address] documented in this encounter Visit Diagnoses Diagnosis Benign neoplasm of skin of upper limb, i ncluding shoulder documented in this encounter Care Teams Ticket Taker Relationship Specialty Start Date End Date Greyson Gonzalez MD PCP - General 04/15/01 12/23/03 [address] [place], [place] [phone] documented as of this encounter
--- OUTSIDE RECORDS SUMMARY | 2022-05-09 13:46 | XMS_ITS | Encounter Summary ---
:1965 Author Organization [facility] Address [address] [address] Care Team Providers Name Role Phone Greyson Gonzalez MD Primary Care Provider Encounter Details Date Type Department Care Team Description 10/14/2003 Office Visit [facility] Internal Greyson Gonzalez HEADACHE ; Julio Angeles MD DERMATOPHYTOSIS OF NAIL; [address] [place] [address] [place], [place] [phone] Social History Tobacco Use Types Packs/Day Years [...] Body Mass Index 29.26 09/02/2002 2:00 PM GRAIN BROKER documented in this encounter Progress Notes 10/14/2003 [...] -NO Preventive Services up to date? -{YES/NO NEEDS:47563} Immunizations up to date? -{YES/NO,NEEDS:15398} Do you ever feel physically threatened or emotionally afraid? -NOT ASKED Tobacco Status reviewed? (see History Social-Substance) -NO parking lot attendant offered? -NOT APPLICABLE. Aspirin taken daily? -NO BP was taken on the RIGHT arm. BP cuff size used? -Adult Regular Health Education given? -NO. Contact phone number [phone] (home) [phone] (work), alternate phone number- Esmer Berger LPN [...] eruption documented in this encounter Care Teams Electrical And Radio Aircraft Mechanic Relationship Specialty Start Date End Date Greyson Gonzalez MD PCP - General 04/15/01 12/23/03 [address] [place] [address] documented as of this encounter
--- OUTSIDE RECORDS SUMMARY | 2022-05-09 13:46 | XMS_ITS | Encounter Summary ---
:1965 [facility] Address [address] [place] [address] Care Team Providers Name Role Phone Greyson Gonzalez MD Primary Care Provider Encounter Details Date Type Department Care Team Description 11/18/2003 Office Visit [facility] Optometry Dafne Kyle EYE & VISION EXAMINATION; April, JAZMIN MYOPIA; [address] ASTIGMATISM NOS; [place], [place] [address] [place] Social History Tobacco Use Types Packs/Day [...] Presbyopia documented in this encounter Care Teams Senior Engineering Team Leader Relationship Specialty Start Date End Date Greyson Gonzalez MD PCP - General 04/15/01 12/23/03 [address] [place], [place] [phone] documented as of this encounter
--- OUTSIDE RECORDS SUMMARY | 2022-05-09 13:46 | XMS_ITS | Encounter Summary ---
:1965 [facility] Address [address] [place] [address] Care Team Providers Name Role Phone Greyson Gonzalez MD Primary Care Provider Encounter Details Date Type Department Care Team Description 12/27/2001 Orders Only [facility] Internal Med Juanito Chandra MD [address] [place] [address] Social History Tobacco Use Types Packs/Day Years Used Date Smoking Tobacco: Never Assessed Sex Assigned at Date Recorded Not on file documented as of this encounter Plan of Treatment Not on filedocumented as of this encounter Visit Diagnoses Not on filedocumented in this encounter Care Teams President College Or University Relationship Specialty Start Date End Date Greyson Gonzalez MD PCP - General 04/15/01 12/23/03 [address] [place] [address] documented as of this encounter
--- OUTSIDE RECORDS SUMMARY | 2022-05-09 13:46 | XMS_ITS | Encounter Summary ---
:1965 Author Organization [facility] Address [address] [place] [address] Care Team Providers Name Role Phone Greyson Gonzalez MD Primary Care Provider Encounter Details Date Type Department Care Team Description 09/11/2002 Correspondence None Unknown, Physici an [facility] [address] [place], [place] [address] (Wo rk) Social History Tobacco Use Types Packs/Day Years Used Date Smoking Tobacco: Never Alcohol Use Standard Drinks/Week Comments Not Asked 0 (1 standard drink = 0.6 oz pure alcoho l) Sex Assigned at Date Recorded Not on file documented as of this encounter Progress Notes Unknown, Physician - 09/11/2002 12:00 AM PRODUCT DESIGNER documented in this encounter Plan of Treatment Not on filedocumented as of this encounter Visit Diagnoses Not on filedocumented in this encounter Care Teams Professor Of Practice Relationship Specialty Start Date End Date Greyson Gonzalez MD PCP - General 04/15/01 12/23/03 [address] [place], [place] [phone] documented as of this encounter
--- OUTSIDE RECORDS SUMMARY | 2022-05-09 13:46 | XMS_ITS | Encounter Summary ---
:1965 Author Organization [facility] Address [address] [place] [address] Care Team Providers Name Role Phone Greyson Gonzalez MD Primary Care Provider Encounter Details Date Type Department Care Team Description 04/04/2002 Office Visit [facility] Lebron Mcgrath MD VERITO SSNG CHANGE SUTURE/STAPLE [...] sutures documented in this encounter Care Teams Pipe Foreman Relationship Specialty Start Date End Date Greyson Gonzalez MD PCP - General 04/15/01 12/23/03 [address] [place] [address] documented as of this encounter
--- OUTSIDE RECORDS SUMMARY | 2022-05-09 13:47 | XMS_ITS | Encounter Summary ---
:1965 Author Organization [facility] Address [address], [place] [address] Care Team Providers Name Role Phone Greyson Gonzalez MD Primary Care Provider Encounter Details Date Type Department Care Team Description 07/26/2001 Orders Only [facility] Internal Med Juanito Chandra MD [address] [place] [address] Social History Tobacco Use Types Packs/Day Years Used Date Smoking Tobacco: Never Assessed Sex Assigned at Date Recorded Not on file documented as of this encounter Plan of Treatment Not on filedocumented as of this encounter Visit Diagnoses Not on filedocumented in this encounter Care Teams Drill Punch Operator Relationship Specialty Start Date End Date Greyson Gonzalez MD PCP - General 04/15/01 12/23/03 [address] [place] [address] documented as of this encounter
--- OUTSIDE RECORDS SUMMARY | 2022-05-09 13:47 | XMS_ITS | Encounter Summary ---
:1965 Author Organization [facility] Address [address], [place] [address] Care Team Providers Name Role Phone Greyson Gonzalez MD Primary Care Provider Encounter Details Date Type Department Care Team Description 10/14/2001 Office Visit [facility] Internal REMBERTO Colin PA IN(ACUTE)<6 WEEKS; Medicine Jose Allan DO LOW BACK PAIN (CHRONIC)>6 WEEKS; 205 [facility] [address] [place] [address] [place] [phone] Social History Tobacco Use Types Packs/Day [...] 8 days ago she bent over to burr picker a heavy load of laundry and [...] ied documented in this encounter Care Teams Machine Welt Butter Relationship Specialty Start Date End Date Greyson Gonzalez MD PCP - General 04/15/01 12/23/03 [address] [place] [address] documented as of this encounter
--- OUTSIDE RECORDS SUMMARY | 2022-05-09 13:47 | XMS_ITS | Encounter Summary ---
:1965 Author Organization [facility] Address [address] [address] Care Team Providers Name Role Phone Greyson Gonzalez MD Primary Care Provider Encounter Details Date Type Department Care Team Description 04/19/2001 Office Visit [facility] Obstetrics and Blank Perez, ENGINEERING PATTERNMAKER , COUNSELING, HEALTH Gynecology [facility] 205 [facility] [address] [place] [address] [place], [place] [phone] (Wo rk) Social History Tobacco Use [...] results. IN SUMMARY: FOLLOW UP LAB cc: PORTER BAGGAGE documented in this encounter Plan of Treatment Not on filedocumented as of this encounter Visit Diagnoses Diagnosis Counseling NOS(V65.40) Counseling NOS documented in this encounter Care Teams Water Pollution Control Inspector Relationship Specialty Start Date End Date Greyson Gonzalez MD PCP - General 04/15/01 12/23/03 [address] [place] [address] documented as of this encounter
--- OUTSIDE RECORDS SUMMARY | 2022-05-09 13:47 | XMS_ITS | Encounter Summary ---
:1965 [facility] Address [address], [place] [address] Care Team Providers Name Role Phone Greyson Gonzalez MD Primary Care Provider Encounter Details Date Type Department Care Team Description 05/01/2001 Orders Only [facility] Obstetrics and Chris, Anayeli Alejandro, KEG RAISER, ADMINISTRATIVE APPEALS TRIBUNAL MEMBER Gynecology [address] [address] [place], [place] [address] [phone] Social History Tobacco Use Types Packs/Day Years Used Date Smoking Tobacco: Never Assessed Sex Assigned at Date Recorded Not on file documented as of this encounter Procedure Notes Alfredo Mcmahon - 05/01/2001 12:00 AM CSTAssociated Order(s): ECHO EXAMINATION PROCEDURE TAPE NO: [id number] REFERRING PHYSICIAN: This patient was sent to [...] ESSENTIALLY NORMAL PELVIC ULTRASOUND cc: AUDREY Moffett N RELATIONS TEACHER documented in this encounter Plan of Treatment Not on filedocumented as of this encounter Procedures Procedure Name Priority Date/Time Associated Diagnosis Comme nts UNLISTED ULTRASOUND 05/01/2001 Results for this PROCEDURE procedure are i n the results section . documented in this encounter Results ECHO EXAMINATION PROCEDURE (05/01/2001) Anatomical Region Laterality Modality Other Transcriptions Alfredo Mcmahon - 05/01/2001 12:00 AM HUMAN RELATIONS TEACHER TAPE NO: [id number] REFERRING PHYSICIAN: This patient was se nt [...] UL TRASOUND cc: AUDREY Moffett Blank Perez KEG RAISER, ADMINISTRATIVE APPEALS TRIBUNAL MEMBER PROC_2 documented in this encounter Visit Diagnoses Not on filedocumented in this encounter Care Teams Operators School Manager Relationship Specialty Start Date End Date Greyson Gonzalez MD PCP - General 04/15/01 12/23/03 [address] [place] [address] documented as of this encounter
--- OUTSIDE RECORDS SUMMARY | 2022-05-09 13:47 | XMS_ITS | Encounter Summary ---
:1965 Author Organization [facility] Address [address] [place] [address] Care Team Providers Name Role Phone Unassigned, Provider Primary Care Provider Unavailable Encounter Details Date Type Department Care Team Description 03/28/2001 Orders Only Blank Burleson APRN, CNP [address] [place], [place] [address] [place] [address] (Wo rk) Social History Tobacco [...] PAP SMEAR, ROUTINE (03/28/2001 9:30 AM CDT) [facility] Method Time Signature Pap Smear, See Separate Report [facility] Routine Performed at [facility] Specimen Anatomical Collection Method Collection Time Receive d Time (Source) Location / / Volume Laterality 03/28/2001 9:30 AM 04/24/200 1 CDT 12:22 PM DENIAL MANAGEMENT REPRESENTATIVE Blank Perez APRN, CNP LAB_1 Performing Organization Address City/State/ZIP Code Phon e Number [facility] [phone] [address] documented in this encounter Visit Diagnoses Not on filedocumented in this encounter Care Teams Neuro Intensivist Physician Relationship Specialty Start Date End Date Unassigned, Provider PCP - General 09/18/[address] [place] [address] documented as of this encounter
--- OUTSIDE RECORDS SUMMARY | 2022-05-09 13:47 | XMS_ITS | Encounter Summary ---
:1965 Author Organization [facility] Address [address] [address] Care Team Providers Name Role Phone Juanito Panda MD Primary Care Provider Unavailable Encounter Details Date Type Department Care Team Description 03/18/2001 Orders Only [facility] Internal Med Greyson Romero MD 205 [facility] [address] [place] [address] [place] [address] [phone] (Wo rk) Social History Tobacco Use Types Packs/Day Years Used Date Smoking Tobacco: Never Assessed Sex Assigned at Date Recorded Not on file documented as of this encounter Plan of Treatment Not on filedocumented as of this encounter Visit Diagnoses Not on filedocumented in this encounter Care Teams Vector Control Specialist Relationship Specialty Start Date End Date Juanito Panda MD PCP - General 07/30/00 110 1 documented as of this encounter
--- OUTSIDE RECORDS SUMMARY | 2022-05-09 13:47 | XMS_ITS | Encounter Summary ---
:1965 Author Organization [facility] Address [address] [place] [address] Care Team Providers Name Role Phone Unassigned, Provider Primary Care Provider Unavailable Encounter Details Date Type Department Care Team Description 03/28/2001 Orders Only Blank Burleson, JOB CAPTAIN, LUNCHEONETTE MANAGER [address] [place], [place] [phone] [place], [place] [phone] (Wo rk) Social History Tobacco Use Types [...] Perez APRN, CNP LAB_1 Performing Organization Address City/[facility]/ZIP Code Phon e Number [employer] [phone] [facility] [address] [phone] TSH, SENSITIVE (03/28/2001 10:56 AM CDT) athologist Signature TSH 1.59 0.30 - 5.00 [facility] uIU/ml Thyroid Meds No [facility] Specimen Anatomical Collection Method Collection Time Receive d Time (Source) Location / / Volume Laterality 03/28/2001 10:56 03/28/2001 AM CDT 10:57 AM CDT Blank Perez APRN, CNP LAB_1 Performing Organization Address [facility]/ZIP Code Phon e Number [employer] [phone] [facility] [address] [place] [phone] TESTOSTERONE (03/28/2001 10:56 AM CDT) athologist Signature Testosterone 34 20 - 80 [facility] ng/dl Specimen Anatomical Collection Method Collection Time Receive d Time (Source) Location / / Volume Laterality 03/28/2001 10:56 03/28/2001 AM CDT 10:57 AM CDT Blank Perez APRN, CNP LAB_1 Performing Organization Address City/[facility]/ZIP [facility] Phon e Number [facility] [employer] [phone] [facility] [address] [place] [phone] HEMOGLOBIN, BLOOD (03/28/2001 10:56 AM CDT) P athologist Signature Hemoglobin 14.6 12.0 - 16.0 [facility] g/dl Specimen Anatomical Collection Method Collection Time Receive d Time (Source) Location / / Volume Laterality 03/28/2001 10:56 03/28/2001 AM CDT 10:57 AM CDT Blank Perez APRN, CNP LAB_1 Performing Organization Address [facility] Phon e Number [facility] [phone] [facility] [address] [place] [phone] (ABNORMAL) CHOLESTEROL LIPID PANEL FAST >12HR FAST (03/28/2001 10:56 AM CDT) Component Value Ref Test Analysis Performed At [facility] Range Method Time Signature Cholesterol 225 [...] Perez APRN, CNP LAB_1 Performing Organization Address [facility] Phon e Number [facility] [phone] [phone] documented in this encounter Visit Diagnoses Not on filedocumented in this encounter Care Teams Head Of Physics Relationship Specialty Start Date End Date Unassigned, Provider PCP - General 09/18/[address] [place] [address] documented as of this encounter
--- OUTSIDE RECORDS SUMMARY | 2022-05-09 13:47 | XMS_ITS | Encounter Summary ---
:1965 Author Organization [facility] Address [address], [place] [address] Care Team Providers Name Role Phone Greyson Gonzalez MD Primary Care Provider Encounter Details Date Type Department Care Team Description 07/02/2001 Office Visit [facility] Internal Greyson Gonzalez, JOINT PAIN-SHLDER; Medicine PAIN IN LIMB; [address] SKIN [place] [address] [place], [place] [phone] Social History Tobacco Use Types Packs/Day Years [...] as tolerated. She was reminded to return RTISING DISPATCH CLERKS SUPERVISOR documented in this encounter Plan of Treatment Not on filedocumented as of this encounter Visit Diagnoses Diagnosis Pain in joint, shoulder region Pain in limb Disturbance of skin sensation documented in this encounter Care Teams Electric Track Switch Maintainer Relationship Specialty Start Date End Date Greyson Gonzalez MD PCP - General 04/15/01 12/23/[address] [place] [address] documented as of this encounter
--- OUTSIDE RECORDS SUMMARY | 2022-05-09 13:47 | XMS_ITS | Encounter Summary ---
:1965 Author Organization [facility] Address [address] [place] [address] Care Team Providers Name Role Phone Unassigned, Provider Primary Care Provider Unavailable Encounter Details Date Type Department Care Team Description 05/13/2001 Orders Only Blank Burleson APRN, CNP [address] [place], [place] [address] [place] [address] (Wo rk) Social History Tobacco [...] Re sults for this 8 HRS FASTING CABLE FERRYBOAT OPERATOR procedure are in the results section. documented in this encounter Results (ABNORMAL) GLUCOSE - FASTING > 8 HRS FASTING (05/13/2001 8:47 AM CABLE FERRYBOAT OPERATOR) Analysis Performed At Patho logist Time Signature Glucose 119 (H) 70 - 110 [facility] mg/dl Hours Fasting 10 hours [facility] Specimen Anatomical Collection Method Collection Time Receive d Time (Source) Location / / Volume Laterality 05/13/2001 8:47 AM 1 8:48 CABLE FERRYBOAT OPERATOR AM CABLE FERRYBOAT OPERATOR Blank Perez APRN, CNP LAB_1 Performing Organization Address City/State/ZIP Code Phon e Number [facility] [phone] [facility] [address] [phone] documented in this encounter Visit Diagnoses Not on filedocumented in this encounter Care Teams Bed And Breakfast Innkeeper Relationship Specialty Start Date End Date Unassigned, Provider PCP - General 09/18/08 [address] [place] [address] documented as of this encounter
--- OUTSIDE RECORDS SUMMARY | 2022-05-09 13:47 | XMS_ITS | Encounter Summary ---
:1965 Author Organization [facility] Address [address] [address] Care Team Providers Name Role Phone Juanito Panda MD Primary Care Provider Unavailable Encounter Details Date Type Department Care Team Description 03/28/2001 Office Visit [facility] Obstetrics Blank Perez, GYNECOLO GIC EXAMINATION; and Gynecology MEDICAL OFFICE RECEPTIONIST ASSISTANT, PROJECT ADMINISTRATOR SCREENING MAL NEOP-CERVIX 205 [facility] [address] [place] [address] [place], [place] [phone] Social History Tobacco Use Types Packs/Day Years Used Date Smoking Tobacco: Never Assessed Sex Assigned at Date Recorded Not on file documented as of this encounter Progress Notes Blank Perez - 03/28/2001 12:00 AM CDTSUBJECTIVE: 36 year-old female comes in today for RHM. She is new to [facility]. She had a laminectomy in September involving C6 and C7. She has also had one section in 1987. Her children are 18, 17 and 13 and all healthy. Her one daughter is at college. Her father has HTN and diabetes and two SC's. He has had two open heart surgeries, [...] and HTN. May obtain the program through [employer] on prevention of diabetes. Patient will return in one year or prn. IN SUMMARY: RHM. cc: documented in this encounter Plan of Treatment Not on filedocumented as of this encounter Visit Diagnoses Diagnosis Gynecological examination Screening for malignant neoplasm of the cervix documented in this encounter Care Teams Wax Pattern Assembler Relationship Specialty Start Date End Date Juanito Panda MD PCP - General 07/30/00 1 documented as of this encounter
--- OUTSIDE RECORDS SUMMARY | 2022-05-09 13:47 | XMS_ITS | Encounter Summary ---
:1965 Author Organization [facility] Address [address], [place] [address] Care Team Providers Name Role Phone Juanito Panda MD Primary Care Provider Unavailable Encounter Details Date Type Department Care Team Description 03/18/2001 Office Visit [facility] Internal Med Greyson Romero MD BACKACHE NOS; [address] [place] [address] [place], [place] [phone] (Wo rk) Social History Tobacco Use Types [...] as discussed. She is going to discontinue ukkj-pew-opfdvje ibuprofen and use Naprosyn 500 milligrams po [...] limb documented in this encounter Care Teams Bulk Mail Technician Relationship Specialty Start Date End Date Juanito Panda MD PCP - General 07/30/00 1 documented as of this encounter
--- OUTSIDE RECORDS SUMMARY | 2022-05-09 13:47 | XMS_ITS | Encounter Summary ---
:1965 Author Organization [facility] Address [address], [place] [address] Care Team Providers Name Role Phone Greyson Gonzalez MD Primary Care Provider Encounter Details Date Type Department Care Team Description 08/13/2001 Office Visit [facility] Wilda Louise AB N GLUCOSE TOLERAN TEST; Clinic TRENTN, KIESHA PURE HYPERCHOLESTEROLEM; [address] [place] [address] [place], [place] [phone] (Wo rk) Social History Tobacco Use Types [...] nicer to get out. 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 OBJECTIVE: A 36-year-old woman, referred to the [...] glucose intolerance. cc: Wilda Louise RD, KIESHA ACT LENS POLISHER documented in this encounter Plan of Treatment Not on filedocumented as of this encounter Visit Diagnoses Diagnosis ABN GLUCOSE TOLERAN TEST Pure hypercholesterolemia Obesity, unspecified ([facility]) Obesity, unspecified documented in this encounter Care Teams Pharmacy Informaticist Relationship Specialty Start Date End Date Greyson Gonzalez MD PCP - General 04/15/01 12/23/03 [address] [place] [address] documented as of this encounter
--- OUTSIDE RECORDS SUMMARY | 2022-05-09 13:47 | XMS_ITS | Encounter Summary ---
:1965 Author [facility] Address [address] [place] [address] Care Team Providers Name Role Phone Unassigned, Provider Primary Care Provider Unavailable Encounter Details Date Type Department Care Team Description 04/22/2001 Orders Only Blank Burleson, SUPERVISOR PROCESS TESTING, INSPECTOR AND TESTER [address] [place], [place] [address] [place], [place] [phone] (Wo rk) Social History Tobacco Use Types Packs/Day Years Used Date Smoking Tobacco: Never Assessed Sex Assigned at Date Recorded Not on file documented as of this encounter Plan of Treatment Not on filedocumented as of this encounter Procedures Procedure Name Priority Date/Time Associated Diagnosis Comme nts INSULIN,SERUM Routine 04/22/2001 7:26 AM Results for this AFLOAT CRYPTOLOGIC MANAGER procedure are i n the results section. LH Routine 04/22/2001 7:26 AM Results f or this AFLOAT CRYPTOLOGIC MANAGER procedure are i n the results section. FSH Routine 04/22/2001 7:26 AM Results f or this AFLOAT CRYPTOLOGIC MANAGER procedure are i n the results section. GLUCOSE - FASTING > Routine 04/22/2001 7:26 AM Re sults for this 8 HRS FASTING AFLOAT CRYPTOLOGIC MANAGER procedure are in the results section. documented in this encounter Results INSULIN,SERUM (04/22/2001 7:26 AM AFLOAT CRYPTOLOGIC MANAGER) [facility] Method Time Signature Insulin, 16 MIU/L [facility] Serum Insulin, Reference [facility] Serum range: 6 to 27 Comment Referred to [employer], [address] [place], [place] [address] [place], [place] Specimen Anatomical Collection Method Collection Time Receive d Time (Source) Location / / Volume Laterality 04/22/2001 7:26 AM 1 7:27 AFLOAT CRYPTOLOGIC MANAGER AM AFLOAT CRYPTOLOGIC MANAGER Blank Flavia Chris ESTRADA CNP LAB_1 Performing Organization Address [facility] Phon e Number [employer] [phone] [facility] [address] [place] [phone] (ABNORMAL) GLUCOSE - FASTING > 8 HRS FASTING (04/22/2001 7:26 AM AFLOAT CRYPTOLOGIC MANAGER) Analysis Performed At Patho logist Time Signature Glucose 136 (H) 70 - 110 [facility] mg/dl Hours Fasting 13 hours [facility] Specimen Anatomical Collection Method Collection Time Receive d Time (Source) Location / / Volume Laterality 04/22/2001 7:26 AM 1 7:27 AFLOAT CRYPTOLOGIC MANAGER AM AFLOAT CRYPTOLOGIC MANAGER Blank Alejandro Chris ESTRADA CNP LAB_1 Performing Organization Address [facility] Phon e Number [employer] [phone] [phone] LH (04/22/2001 7:26 AM AFLOAT CRYPTOLOGIC MANAGER) Patholo gist Method Time Signature LH 6.1 mIU/ml [facility] LH Expected Values- [facility] Prepubertal: ??<6.0 Follicular: ??1.9-12.5 Midcycle: ??8.7-76.3 Luteal: ??<1.0-16.9 Postmenopausal: ??5.0-52.3 Specimen Anatomical Collection Method Collection Time Receive d Time (Source) Location / / Volume Laterality 04/22/2001 7:26 AM 1 7:27 AFLOAT CRYPTOLOGIC MANAGER AM AFLOAT CRYPTOLOGIC MANAGER Blank Alejandro Chris ESTRADA CNP LAB_1 Performing Organization Address [facility] Phon e Number [employer] [phone] [phone] FSH (04/22/2001 7:26 AM AFLOAT CRYPTOLOGIC MANAGER) Patholo gist Method Time Signature FSH 5.5 mIU/ml [facility] FSH Expected Values- [facility] Prepubertal: ??<5.0 Follicular: ??2.5-10.2 Midcycle: ??3.4-33.4 Luteal: ??1.5-9.1 Postmenopausal: ??23.0-116.3 Specimen Anatomical Collection Method Collection Time Receive d Time (Source) Location / / Volume Laterality 04/22/2001 7:26 AM 1 7:27 AFLOAT CRYPTOLOGIC MANAGER AM AFLOAT CRYPTOLOGIC MANAGER Blank Perez SUPERVISOR PROCESS TESTING, INSPECTOR AND TESTER LAB_1 Performing Organization Address City/State/ZIP Code Phon e Number [facility] [phone] [facility] [address] [address] documented in this encounter Visit Diagnoses Not on filedocumented in this encounter Care Teams Media Production Manager Relationship Specialty Start Date End Date Unassigned, Provider PCP - General 09/18/08 [address] [place] [address] documented as of this encounter
--- OUTSIDE RECORDS SUMMARY | 2022-05-09 13:47 | XMS_ITS | Encounter Summary ---
:1965 [facility] Address [address] [address] Care Team Providers Name Role Phone Greyson Gonzalez MD Primary Care Provider Encounter Details Date Type Department Care Team Description 05/01/2001 Office Visit [place] fiber optics engineer Ult rasound IRREGULAR MENSTRUATION [address] [place], [place] [address] Social History Tobacco Use Types Packs/Day Years Used Date Smoking Tobacco: Never Assessed Sex Assigned at Date Recorded Not on file documented as of this encounter Progress Notes Alfredo Mcmahon - 05/01/2001 12:00 AM CSTThis Document has been Canceled. DING SUPERVISOR documented in this encounter Plan of Treatment Not on filedocumented as of this encounter Visit Diagnoses Diagnosis Irregular menstrual cycle documented in this encounter Care Teams Compressor Station Engineer Relationship Specialty Start Date End Date Greyson Gonzalez MD PCP - General 04/15/01 12/23/03 [address] [place], [place] [phone] documented as of this encounter
--- OUTSIDE RECORDS SUMMARY | 2022-05-09 13:47 | XMS_ITS | Encounter Summary ---
:1965 Author [facility] Address [address] [place] [address] Care Team Providers Name Role Phone Greyson Gonzalez MD Primary Care Provider Encounter Details Date Type Department Care Team Description 03/28/2001 Orders Only [facility] Obstetrics and Chris, Anayeli Alejandro, INSURANCE CLAIMS PROCESSOR, FUR IRONER Gynecology [address] [place] [address] [place] [address] [phone] Social History Tobacco Use Types Packs/Day Years Used Date Smoking Tobacco: Never Assessed Sex Assigned at Date Recorded Not on file documented as of this encounter Plan of Treatment Not on filedocumented as of this encounter Procedures Procedure Name Priority Date/Time Associated Diagnosis Comme [facility] BELT LOOP MACHINE OPERATOR CYTOLOGY Routine 03/28/2001 10:40 AM Results for this CDT procedure are i n the results section . documented in this encounter Results BELT LOOP MACHINE OPERATOR CYTOLOGY (03/28/2001 10:40 AM CDT) [facility] Method Time Signature Catalogue And Special Products Manager Cytology Catalogue And Special Products Manager Cytology Report REGIONS Patient Name: PADMINI CHOI Taken: 03/28/01 Received: 04/01/01 Reported: 04/23/01 Physician(s): BLANK GIRALDO ([id number]) ? [id number] Final Cytologic Diagnosis Cervical Endocervical,routine: ? Satisfactory for evaluation. ??Endocervical cells and/or squamous metaplastic cells ??present. This pap smear was sent to [facility], [address] [place] [address] ??[place] ??[id number] for evaluation. ?? Their results are as follows. ? WITHIN NORMAL LIMITS (WNL) ? Comment qcs/04/23/01 Electronically Signed Out By [employer], [employer], [employer] ? Source of Specimen(s) Cervical Endocervical,routine Clinical History Date of Last Menstrual Period: ? 03/17/01 Menstrual History: Contraceptive History: Cancer History: Infection History: Treatment History: Other Clinical Conditions: Other Related Clinical Data Specimen Anatomical Collection Method Collection Time Receive d Time (Source) Location / / Volume Laterality 03/28/2001 10:40 04/01/2001 AM CDT 10:40 AM CDT Blank Giraldo APRN, CNP UNLISTED CODE Performing Organization Address City/State/ZIP Code Phon e Number [address] [address] [place], [place] [phone] documented in this encounter Visit Diagnoses Not on filedocumented in this encounter Care Teams Outsole Scheduler Relationship Specialty Start Date End Date Greyson Gonzalez MD PCP - General 04/15/01 12/23/03 [address] [place], [place] [id number] documented as of this encounter
--- OUTSIDE RECORDS SUMMARY | 2022-05-09 13:47 | XMS_ITS | Encounter Summary ---
:1965 Author Organization [facility] Address [address] [place] [address] Care Team Providers Name Role Phone Juanito Panda MD Primary Care Provider Unavailable Encounter Details Date Type Department Care Team Description 03/28/2001 Orders Only [facility] Obstetrics and Anayeli Perez, CLINICAL DATA MANAGER, EYEGLASS FRAME TRUER Gynecology [address] [address] [place] [address] [phone] Social History Tobacco Use Types Packs/Day Years [...] Time Received Time / Laterality Volume Transcriptions Sofia Lilly R - 03/28/2001 12:00 AM CD TCLINICAL DATA: Flexion, extension. EXAMINATION: IN SUMMARY: C-SPINE - 03/28. FINDINGS: The patient is status post ant erior fusion at C5-6-7. There is several millimeters of anterior subluxat ion of C6-C7, which is stable in flexion and extension. No other views ar e available for comparison. No other abnormalities are noted. Sofia Llily MD cc: AUDREY [facility] Radiology SP Blank Perez CLINICAL DATA MANAGER, EYEGLASS FRAME TRUER PAPS documented in this encounter Visit Diagnoses Not on filedocumented in this encounter Care Teams Car Seat Coverer Relationship Specialty Start Date End Date Juanito Panda MD PCP - General 07/30/00 1 documented as of this encounter
--- OUTSIDE RECORDS SUMMARY | 2022-05-09 13:48 | XMS_ITS | Encounter Summary ---
:1965 Author Organization [facility] Address [address] [place] [address] Care Team Providers Name Role Phone Juanito Panda MD Primary Care Provider Unavailable Reason for Visit Reason Comments NEW MEMBER VISIT VIA INTERFACE Encounter Details Date Type Department Care Team Description 08/10/2000 Office Visit SP INTERNAL MED II Juanito Panda, NEURALGIA/NEURITIS NOS [address] [facility] [place] [address] Social History Tobacco Use Types Packs/Day Years Used Date Smoking Tobacco: Never Assessed Sex Assigned at Date Recorded Not on file documented as of this encounter Progress Notes Juanito Panda - 08/10/2000 12:00 AM CSTS: This 35 year-old female is a new patient. We have received some records from [facility] [address] in [place], which are reviewed. These document that in [...] She was referred to Dr. Brandt of [facility] Neurosurgery. She saw him on 06/14/00 [...] trapezius and paracervical area is diffusely tender. Hand Plug Shaper strength is slightly reduced on the right [...] an operative date has been decided. cc: ATOR AUTOMATED PROCESS documented in this encounter Plan of Treatment Not on filedocumented as of this encounter Visit Diagnoses Diagnosis Neuralgia, neuritis, and radiculitis, un specified documented in this encounter Care Teams Terminal Manager Relationship Specialty Start Date End Date Juanito Panda MD PCP - General 07/30/00 1 documented as of this encounter
--- OUTSIDE RECORDS SUMMARY | 2022-05-09 13:48 | XMS_ITS | Encounter Summary ---
:1965 Author Organization [facility] Address [address], [place] [address] Care Team Providers Name Role Phone Juanito Panda MD Primary Care Provider Unavailable Reason for Visit Reason Comments PRE-OP EXAM VIA INTERFACE Encounter Details Date Type Department Care Team Description 09/11/2000 Office Visit SP INTERNAL MED II Juanito Panda, DISC DIS NEC/NOS-UNSPEC; [address] [facility] [address] [place]YSPEPSIA; [place] [address] PREOP EXA M OTHER SPECIFIED; FOLLOW-UP EXAM [...] and symmetric in upper and lower extremities. Sluice Tender strength is full and equal. Remainder of [...] examination documented in this encounter Care Teams Career Development Manager Relationship Specialty Start Date End Date Juanito Panda MD PCP - General 07/30/00 1 documented as of this encounter
--- OUTSIDE RECORDS SUMMARY | 2022-05-09 13:48 | XMS_ITS | Encounter Summary ---
:1965 Author Organization [facility] Address [address] [place] [address] Care Team Providers Name Role Phone Juanito Panda MD Primary Care Provider Unavailable Encounter Details Date Type Department Care Team Description 12/20/2000 Orders Only [facility] Internal Med Juanito Chandra MD [address] [place] [phone] Social History Tobacco Use Types Packs/Day Years Used Date Smoking Tobacco: Never Assessed Sex Assigned at Date Recorded Not on file documented as of this encounter Plan of Treatment Not on filedocumented as of this encounter Visit Diagnoses Not on filedocumented in this encounter Care Teams Stock Replenisher Relationship Specialty Start Date End Date Juanito Panda MD PCP - General 07/30/00 1 documented as of this encounter
--- OUTSIDE RECORDS SUMMARY | 2022-05-09 13:48 | XMS_ITS | Encounter Summary ---
:1965 Author Organization [facility] Address [address] [place] [address] Care Team Providers Name Role Phone Unassigned, Provider Primary Care Provider Unavailable Encounter Details Date Type Department Care Team Description 09/11/2000 Orders Only Juanito Young MD [address] [place], [place] [phone] Social History Tobacco Use [...] Results EKG TRACING (09/11/2000 4:50 PM CDT) [facility] Method Time Signature EKG See Separate [facility] Report Specimen Anatomical Collection Method Collection Time Receive d Time (Source) Location / / Volume Laterality 09/11/2000 4:50 PM 1 4:53 CDT PM CDT Juanito Panda MD EKG Performing Organization Address City/State/ZIP Code Phon e Number [facility] [phone] [facility] [address] [place] [phone] documented in this encounter Visit Diagnoses Not on filedocumented in this encounter Care Teams Distributed Generation Project Manager Relationship Specialty Start Date End Date Unassigned, Provider PCP - General 09/18/[address] [place] [phone] documented as of this encounter
--- NOTE | 2022-05-09 14:00 | CRLHL7_ITS ---
For Patients: As a result of the Century Cures Act, medical imaging exams and procedure reports are released immediately into your electronic medical record. You may view this report before your referring provider. If you have questions, please contact your health care provider. HISTORY: 57-year-old female. Gallbladder sludge. Type 2 diabetes. Evaluate gallbladder. TECHNIQUE: 5.18 millicuries of [id number] was injected intravenously. Images of the liver, gallbladder and abdomen were obtained in the anterior projection for 45 minutes. 1.6 mcg CCK was then administered intravenously and imaging was continued for an additional 30 minutes. FINDINGS: There is good uptake of activity by the hepatocytes. There is visualization of the biliary tree, gallbladder and small bowel. In response to CCK administration, there was a normal gallbladder ejection fraction of 53 percent by 30 minutes. IMPRESSION: 1. There is no evidence of acute or chronic cholecystitis. 2. Normal gallbladder ejection fraction of 53 percent. Dictated by Rodrigo Mendez MD @ 05/10/2022 9:47:08 AM (Electronically Signed)
== END 2022-05-09 13:18 | disposition home or self-care (01) ==
LOC: NM 13:17
PROVIDERS: PCP Nurse Practitioner Family; Visit Provider Nurse Practitioner Family
DX: R07.89 Other chest pain (principal); K82.9 Disease of gallbladder, unspecified; E11.9 Type 2 diabetes mellitus without complications
CPT/HCPCS: 78227; A9537

== ENCOUNTER 2022-06-20 12:57 | Outpatient (CLI) | payer BC, SELFPAY ==
[2022-06-20 22:49] LABS: C.Difficile Negative (Negative); CDIFFEPI 027 PRESUMPTIVE NEGATIVE (Negative)
== END 2022-06-20 12:58 | disposition home or self-care (01) ==
PROVIDERS: PCP Nurse Practitioner Family; Visit Provider Nurse Practitioner Family
DX: R19.7 Diarrhea, unspecified (principal)
CPT/HCPCS: 87045; 87046; 87177; 87209; 87427; 87493

== ENCOUNTER 2022-08-21 13:20 | Outpatient (CLI) | payer BC, SELFPAY ==
--- NOTE | 2022-08-21 14:46 | W.ANESCHARGE ---
Anesthesia Charges Start Date/Time Anesthesia Start Date: 08/21/22 Anesthesia Start Time: 13:57 Stop Date/Time Anesthesia Stop Date: 08/21/22 Anesthesia Stop Time: 14:55
--- NOTE | 2022-08-21 14:59 | W.ANESCHARGE ---
Anesthesia Charges Start Date/Time Anesthesia Start Date: 08/21/22 Anesthesia Start Time: 13:57 Stop Date/Time Anesthesia Stop Date: 08/21/22 Anesthesia Stop Time: 14:55
== END 2022-08-21 13:21 | disposition home or self-care (01) ==
LOC: OP CLINIC 13:21
PROVIDERS: PCP Nurse Practitioner Family; Visit Provider Surgery
DX: Z12.11 Encounter for screening for malignant neoplasm of colon (principal); K63.5 Polyp of colon; K57.30 Diverticulosis of large intestine without perforation or abscess without bleeding
CPT/HCPCS: 00812; 45385; 88305; J2704

== ENCOUNTER 2023-01-29 10:15 | Outpatient (RCR) | payer BC, SELFPAY | END 2023-05-29 23:59 | disposition home or self-care (01) | PROVIDERS: PCP Nurse Practitioner Family; Visit Provider Family Medicine | DX: M54.50 Low back pain, unspecified (principal); Z98.1 Arthrodesis status; Z51.89 Encounter for other specified aftercare | CPT/HCPCS: 97110; 97140; 97162 ==

== ENCOUNTER 2023-02-13 17:27 | Outpatient (CLI) | payer BC, SELFPAY | END 2023-02-13 17:28 | disposition home or self-care (01) | PROVIDERS: PCP Nurse Practitioner Family; Visit Provider Nurse Practitioner Family | DX: Z01.818 Encounter for other preprocedural examination (principal); R07.89 Other chest pain | CPT/HCPCS: 80053; 82150; 82607; 83036; 83690; 84484; 85025 ==

== ENCOUNTER 2023-02-22 07:17 | Outpatient (CLI) | payer BC, SELFPAY ==
--- NOTE | 2023-02-22 09:28 | W.PM.STED ---
Stress Test Note Date Date Seen: 02/22/23 Date of test: 02/22/23 Providers Primary care provider: Sudha Greene Stress test physician: Radha King Stress Test Note Stress test ordered: Lexiscan Indication for test: Chest pain Stress test medicine: Lexiscan Results discussion: Resting EKG: Sinus rhythm, 76 beats per minute. Incomplete right bundle branch block. Resting blood pressure: 133/82 Stress test: Patient had walking Lexiscan performed. She did develop a sense of chest heaviness with it but not quite as pronounced as the experience that led to this stress test. It did diminish with time as expected if this was from the administration of the regadenoson. She had a maximal blood pressure of 149/84, no hypotension noted. She had return to baseline symptoms in recovery. Patient will have the post stress images done and then discharged to home. No ischemic changes or arrhythmia noted during the stress test. Impression: Possibly subjectively positive with chest heaviness, objectively negative EKG portion of this Lexiscan. Follow up suggested: Await nuclear images to be read to couple this test for full formal diagnostic. Patient discharged from the test in stable condition.
[2023-02-22] MEDS: REGADENOSON 0.4 MG/5 ML SYRINGE IVP (09:50)
[2023-02-22] MEDS: SODIUM CHLORIDE 0.9 % (FLUSH) 10 ML SYRINGE IVF (09:50)
[2023-02-22 10:23] VITALS: BP 149/84; PULSE 85; RESP 16
== END 2023-02-22 10:24 | disposition home or self-care (01) ==
PROVIDERS: PCP Nurse Practitioner Family; Visit Provider Family Medicine
DX: R07.89 Other chest pain (principal); R53.83 Other fatigue
CPT/HCPCS: 78452; 93016; 93017; A9500; J2785

== ENCOUNTER 2023-06-28 10:00 | Outpatient (RCR) | payer BC, SELFPAY | END 2023-08-21 10:16 | disposition home or self-care (01) | PROVIDERS: PCP Nurse Practitioner Family | DX: Z98.890 Other specified postprocedural states (principal); I87.2 Venous insufficiency (chronic) (peripheral); S86.319A Strain of muscle(s) and tendon(s) of peroneal muscle group at lower leg level, unspecified leg, initial encounter; R53.1 Weakness; M25.673 Stiffness of unspecified ankle, not elsewhere classified; M25.579 Pain in unspecified ankle and joints of unspecified foot; Z51.89 Encounter for other specified aftercare | CPT/HCPCS: 97110; 97112; 97140; 97162 ==

== ENCOUNTER 2023-07-02 13:21 | Outpatient (CLI) | payer BC, SELFPAY ==
--- OUTSIDE RECORDS SUMMARY | 2023-07-02 13:23 | XMS_ITS | Clinical Summary ---
Author Name Unknown Organization [facility] Address [place], [place] [address] Care Team Providers Care Tripe Scraper Name Role Phone Sudha Greene NP Primary Care Provider [phone] Allergies Active Allergy Reactions Criticality Noted Date Comments Erythromycin Rash Low 04/13/2008 As a child Medications Medication Sig Dispensed Refills Start Date End Date Status cyclobenzaprine (FLEXERIL) 10 mg tabletIndications:Sc iatica of right side Take 1 tablet by mouth 3 times daily. 30 tablet 1 08/12/2020 Active aspirin (ECOTRIN) 81 mg enteric coated tablet Take 1 Tablet (81 mg) by mouth once daily. 0 03/10/2022 Active DULoxetine (CYMBALTA) 30 mg Delayed-release capsule Take 3 Capsules (90 mg) by mouth once daily. 0 03/10/2022 Active gabapentin (NEURONTIN) 300 mg capsule Take 1 Capsule (300 mg) by mouth three times daily. 0 03/10/2022 Active metFORMIN (GLUCOPHAGE) 1,000 mg tablet Take 1 Tablet (1,000 mg) by mouth two times daily with meals. 0 03/10/2022 Active simvastatin (ZOCOR) 20 mg tablet Take 1 Tablet (20 mg) by mouth at bedtime. 0 03/10/2022 Active topiramate (TOPAMAX) 50 mg tablet Take 1 Tablet (50 mg) by mouth two times daily. 0 03/10/2022 Active Social History Tobacco Use Types Packs/Day Years Used Date Smoking Tobacco: Never Smokeless Tobacco: Never Alcohol Use Standard Drinks/Week Comments Never 0 (1 standard drink = 0.6 oz pur e alcohol) Social Connections Answer Date Recorded Frequency of Communication with Friends and Fami ly Not on file 03/10/2022 Sex and Gender Information Value Date Recorded Sex Assigned at Not on file Gender Identity Not on file Sexual Orientation Not on file Obstetrics History Last Filed Vital Signs Vital Sign Reading Time Taken Comments Blood Pressure 142/66 2022 1:23 PM CDT Pulse 80 2022 2:16 PM CDT Temperature 36.9 ??C (98.4 ??F) 08/12/2020 6:13 PM CS T Respiratory Rate 14 03/10/2022 11:19 AM CDT Oxygen Saturation 97% 08/12/2020 6:13 PM SUPERVISOR [employer] Inhaled Oxygen Concentration - - Weight 79.4 kg (175 lb) 2022 1:23 PM CDT Height 150 cm (4' 11.06) 2022 1:23 PM CDT Body Mass Index 35.28 2022 1:23 PM CDT Plan of Treatment Health Maintenance Due Date Last Done Comments Tdap 1974 Depression screening for age 12+ 1975 HIV for age 15-65 1978 BMI (ht and wt on same day) for age 18+ 1981 Hepatitis C screening for age 18-79 1981 Tetanus booster 1983 Colonoscopy through age 75 2008 Lipids for age 45-75 2008 Mammogram for age 45-75 2008 Zoster (shingles) series for age 50+ (1 of 2) 2013 COVID-19 vaccine series (2022-24 season) 2023 06/07/2022, 06/24/2021, 09/24/2020, Additional history exists Influenza for age 50-64 02/09/2023 Pap test for age 21-65 10/14/2024 10/14/2021, 2021 Pneumococcal series for age 6-64 Aged Out No longer eligible based on patient's age to complete this topic Care Teams Tripe Scraper Relationship Specialty Start Date End Date Sudha Greene NP [address] [facility] [place] [address] PCP - General Emergency Medicine 03/27/22
--- OUTSIDE RECORDS SUMMARY | 2023-07-02 13:24 | XMS_ITS | Clinical Summary ---
Author Name Unknown Organization [facility] Address [address] [place] [address] Care Team Providers Care Wood Stainer Name Role Phone Unavailable Primary Care Provider Unavailabl e Source Comments Patient records contain information from all sites at [facility]. For routine questions regarding patient records, call [phone] during business hours, M-F 8:00 AM - 5:00 PM Central Time. Record requests for emergency care only can be directed to [phone] at any time.[facility] Allergies Active Allergy Reactions Criticality Noted Date Comments Azithromycin Other (see comments) 01/10/2022 Erythromycin Rash 11/16/2021 Medications Medication Sig Dispensed Refills Start Date End Date Status DULoxetine (CYMBALTA) [address] capsule Take 60 mg by mouth daily. 0 05/13/2021 Active simvastatin (ZOCOR) 20 mg tablet Daily 0 08/08/2019 Active metFORMIN (GLUCOPHAGE) 500 mg tablet Take 1,000 mg by mouth 2 (two) times a day with meals. 0 05/03/2021 Active gabapentin (NEURONTIN) 300 mg capsule One in the a.m., one in the afternoon, and two at bedtime. 0 04/20/2021 Active fluticasone propionate (FLONASE) 50 mcg/actuation nasal spray Daily 0 04/20/2021 Active SUMAtriptan (IMITREX) 25 mg tablet As Directed as needed 0 07/13/2020 Active cyanocobalamin, vitamin B-12, 1,000 mcg tablet extended release Daily 0 02/16/2021 Active polycarbophil (FIBERCON) 625 mg tablet 0 Active ibuprofen (ADVIL,MOTRIN) 800 mg tablet Take 800 mg by mouth. 0 Active DULoxetine (CYMBALTA) [address] capsule Taking 30 mg with 60 mg for total of 90 mg daily. 0 10/14/2021 Active DME CPAPIndications:Obstr uctive Sleep Apnea Adult DME Order 1 each 11 03/16/2022 Active blood sugar diagnostic (glucose blood) strips 1 strip. 0 04/11/2014 Active busPIRone (BUSPAR) 10 mg tablet Take 10 mg by mouth 2 (two) times a day. 0 09/20/2022 Active OneTouch Delica Plus Lancet 33 gauge misc 3 TIMES A DAY 0 07/24/2022 A ctive pantoprazole (PROTONIX) 40 mg EC tablet Take 40 mg by mouth 2 (two) times a day. 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 Recurrent Hypersomnia 11/16/2021 Obstructive Sleep Apnea Adult 11/16/2021 Social History Tobacco Use Types Packs/Day Years Used Date Smoking Tobacco: Never Smokeless Tobacco: Never Tobacco Cessation:Counseling Given: Not Answered Nutrition Answer Date Recorded Nutrition: EVOO Fat Source Unknown 01/26 Nutrition: Servings of Fruits/Vegetables per Day Not on file 01/26/2021 Dental Answer Date Recorded Dental: Regular Dentist Unknown 01/27/20 21 Sex and Gender Information Value Date Recorded Sex Assigned at Female 11/16/2021 10:41 AM CDT Gender Identity Female 11/16/2021 10:41 AM CDT Sexual Orientation Straight 11/16/2021 10 :41 AM CDT Last Filed Vital Signs Vital Sign Reading Time Taken Comments Blood Pressure 132/71 10/26/2022 8:28 AM CDT Pulse 69 10/26/2022 8:28 AM CDT Temperature 36.4 ??C (97.5 ??F) 03/16/2022 1 0:13 AM CDT Respiratory Rate - - Oxygen Saturation 97% 11/16/2021 10: 41 AM CDT room air Inhaled Oxygen Concentration - - Weight 88.8 kg (195 lb 12.3 oz) 10/26/2022 8:28 AM CDT Height 156 cm (5' 1.42) 11/16/2021 10: 41 AM CDT Body Mass Index 36.49 11/16/2021 10:41 AM CDT Plan of Treatment Health Maintenance Due Date Last Done Comments CT Colonography 1965 Cologuard 1965 Colonoscopy 1965 Colorectal Cancer Screening 1965 FIT 1965 HIV Screening 1965 Hepatitis C Screening 1965 Mammogram 09/29/2016 09/30/2015 Depression Screening (Annual PHQ-2) 06/11/2022 COVID-19 Vaccine ( season) 2023 06/07/2022, 06/24/2021, 09/24/2020, Additional history exists Influenza Vaccine (#1) 2023 , 06/12/2017, 03/23/2016, Additional history exists Fasting Glucose for Diabetes Screening 11/11/2023 11/10/2020, 01/13/2020, 11/06/2019, Additional history exists Lipid (Cholesterol) Screening 08/08/2024 08/08/2019, 04/09/2018 Cervical Cancer Screening 10/14/2024 10/14/2021 DTaP,Tdap,and Td Vaccines (3 - Td or Tdap) 03/23/2026 03/23/2016, 03/23/2016, 06/16/2005 Pneumococcal vaccine (0-64 years) Aged Out 10/06/2014 No longer eligible based on patient's age to complete this topic Zoster Vaccines Completed 10/10/2022, 07/10/2022 Hepatitis B Vaccines Aged Out No long er eligible based on patient's age to complete this topic
--- OUTSIDE RECORDS SUMMARY | 2023-07-02 13:24 | XMS_ITS | Encounter Summary ---
Author Name Unknown Organization [facility] Address [address] [place] [address] Care Team Providers Care Screw Driver Operator Name Role Phone Unavailable Primary Care Provider Unavailabl e Reason for Referral * Outpatient (Routine) - Authorized Specialty Diagnoses / Procedures Referred By Rylie garcia Referred To Contact Sleep Medicine Chrissie Paredes M.D., M.P.H. [address] [phone] [facility] Referral ID Status Reason Start Date Expiration Date V isits Requested Visits Authorized [id number] Authorized 10/26/2022 10/25/2025 1 1 Reason for Visit * Reason Comments Cpap Follow-up * Outpatient (Routine) - Closed Specialty Diagnoses / Procedures Referred By Rylie garcia Referred To Contact Neurology Diagnoses Sleep Apnea Sudha Greene, C.N.P. [address] [place] [address] [facility] Referral ID Status Reason Start Date Expiration Date Visits Re quested Visits Authorized [id number] Closed 10/19/2022 10/19/2023 1 1 Encounter Details Date Type Department Care Team (Late st Contact Info) Description 10/26/2022 8:45 AM CDT Office Visit Department of Neurology in [address] [phone] Chrissie Paredes M.D., M.P.H. [address] [place] [phone] Delayed Sleep-Wake Phase Disorder (Primary Dx); Sleep Apnea; Obstructive Sleep Apnea Adult Social History Tobacco Use Types Packs/Day Years [...] Orientation Straight 11/16/2021 10 :41 AM CDT documented as of this encounter Last Filed Vital Signs Vital Sign Reading Time Taken Comments Blood Pressure 132/71 10/26/2022 8:28 AM CDT Pulse 69 10/26/2022 8:28 AM CDT Temperature - - Respiratory Rate - - Oxygen Saturation - - Inhaled Oxygen Concentration - - Weight 88.8 kg (195 lb 12.3 oz) 10/26/2022 8:28 AM CDT Height - - Body Mass Index 36.49 11/16/2021 10:41 AM CDT documented in this encounter Patient Instructions * Patient Instructions* Chrissie Paredes M.D., M.P.H. - 10/26/2022 8:45 AM CDT Melatonin to 15 mg at night. documented in this encounter Progress Notes * Chrissie Paredes M.D., M.P.H. - 10/26/2022 8:45 AM CDT Sleep Clinic SUBJECTIVE HISTORY OF PRESENT ILLNESS Patient returns today feeling very sleepy. I reviewed with her CPAP compliance download which reveals residual AHI of 1.4 which seems acceptable but her average use is about 7 hours and 3 minutes. She says that she goes to bed about 830 or 930, she does so because her goes to sleep at that time. She offers up that she goes to bed with her goes to bed he could sleep. It turns out they go to sleep in different bedrooms because he snores but if she goes to bed after him, than the dogs keep barking and that keeps him up. She has, as I previously noted a delayed sleep phase and would rather go to bed and to sleep later. She consequently goes to bed between 830 and 930 and then may take a variable amount of time to fall asleep. She does take 10 mg of melatonin and she said that does not always help. She is interested in trying 15 mg and I think that is reasonable to try. She also takes gabapentin 300 mg in morning 300 mg in the afternoon and 600 mg at night but she says that does not make her sleepy. [place] Sleepiness Score: 17 OBJECTIVE PHYSICAL EXAMINATION BP 132/71 (BP Location: Right arm, Patient Position: Sitting, Cuff Size: Regular) Pulse 69 Wt 88.8 kg BMI 36.49 kg/m?? HEENT Mallampati score: 4 Macroglossia: + Over jet: - Retrognathia: - Lungs: Clear [...] ASSESSMENT / PLAN Encounter Diagnoses Name Primary? Delayed Sleep-Wake Phase Disorder Yes Sleep Apnea Obstructive Sleep Apnea Adult Patient has sleep apnea that is probably adequately treated but she is sleep deprived because of her delayed sleep phase. She goes to bed early so the dogs. Barking so her can sleep but she does not really fall asleep until much later. Her gets up at four she gets up shortly thereafter and so she is relatively sleep deprived. She is taking melatonin 10 mg try to advance her sleep phase she also says she uses a bright light in the morning. Going to have her increase her melatoninto 15 mg. I personally spent 40 minutes in care of the patient today. Time includes both non face to face andface to face patient care. Patient was counseled regarding weight as a risk factor for sleep disordered breathing. The patientwas counseled on driving while drowsy. Chrissie Paredes M.D., M.P.H. documented in this encounter Plan of Treatment Scheduled Referrals Name Type Priority Associated Diagnoses [facility] office visit (clinic) Outpatient Referral Routine Expected: 01/26/2023 (Approximate), Expires: 01/27/2024 documented as of this encounter Visit Diagnoses Diagnosis Delayed Sleep-Wake Phase Disorder- Primary Sleep Apnea Obstructive Sleep Apnea Adult documented in this encounter
--- OUTSIDE RECORDS SUMMARY | 2023-07-02 13:24 | XMS_ITS | Referral Summary ---
Author Name Unknown Organization [facility] Address [address] [place] [address] Care Team Providers Care Double End Tenoner Setter Name Role Phone Sudha Greene NP Primary Care Provider [phone] Agatha Null DPM, Podiatry /Foot and Ankle Surgery Unavailable Encounters Date Type Department Care Team Description 05/11/2023 Travel 05/11/2023 1:30 PM INSURANCE OFFICE SUPERVISOR Office Visit [facility] Podiatry [id number] [place] [address] [address] [place] [address] Agatha Null DPM, Podiatry/Foot and Ankle Surgery Post-operative state (Primary Dx) 04/10/2023 Travel 04/10/2023 10:45 AM CDT Office Visit [facility] Podiatry [id number] [place] [address] Agatha Null DPM, Podiatry/Foot and Ankle Surgery Post-operative state (Primary Dx) from Last 3 Months Allergies Active Allergy Reactions Criticality Noted Date Comments Azithromycin Other (See Comments) 01/10/2022 Erythromycin Rash Low 04/13/2008 As a child Erythromycin Hives High 06/20/2001 Medications Medication Sig Dispensed Refills Start Date End Date Status blood glucose (ACCU-CHEK JANICE) test stripIndications:Ty pe 2 diabetes, HbA1c goal < 7% (H) 1 strip by In Vitro route 2 times daily 100 strip 0 04/11/2014 Active Additional Information Patient not taking.Reported on 01/03/2021 JAY/ARB NOT PRESCRIBED, INTENTIONAL,Indicat ions:Type 2 diabetes, HbA1c goal < 7% (H),Hypertension goal BP (blood pressure) < 130/80 1 each daily JAY & ARB not prescribed due to not needed 0 04/29/2014 Active Acetaminophen (TYLENOL PO) Take 1,000 mg by mouth daily as needed for mild pain or fever 0 Active simvastatin (ZOCOR) 20 MG tabletIndications:H yperlipidemia LDL goal <100,Type 2 diabetes mellitus with complication, without long-term current use of insulin (H) Take 1 tab daily 90 tablet 3 08/08/2019 Active fluticasone (FLONASE) 50 MCG/ACT nasal sprayIndications:Al lergic rhinitis, unspecified seasonality, unspecified trigger [place] 1-2 sprays into both nostrils daily 16 g 11 08/08/2019 Active blood glucose (NO BRAND SPECIFIED) lancets standardIndications :Type 2 diabetes, HbA1c goal < 7% (H) Use to test blood sugar 2 times daily or as directed. 100 each 11 06/16/2020 Active blood glucose (NO BRAND SPECIFIED) test stripIndications:Ty pe 2 diabetes, HbA1c goal < 7% (H) Use to test blood sugar 2 times daily or as directed. 1 Box 11 06/16/2020 Active metFORMIN (GLUCOPHAGE) 500 MG tabletIndications:T ype 2 diabetes mellitus with complication, without long-term current use of insulin (H) TAKE 2 TABLETS BY MOUTH 2 TIMES DAILY (WITH MEALS) 360 tablet 0 06/18/2020 Active SUMAtriptan (IMITREX) 25 MG tabletIndications:M igraine without status migrainosus, not intractable, unspecified migraine type TAKE 1 TO 2 TABLETS BY MOUTH ONCE FOR MIGRAINE. OK TO REPEAT X 1 AFTER 2HOURS. MAX 12TAB/25DAYS INS 12 tablet 8 07/13/2020 Active zolpidem (AMBIEN) 5 MG tabletIndications:P ersistent insomnia Take 1 tab nightly 30 tablet 5 09/26/2020 Active DULoxetine (CYMBALTA) 30 MG capsuleIndications: Fibromyalgia TAKE 1 CAPSULE BY MOUTH EVERY DAY 90 capsule 1 01/20/2021 Active Additional Information Patient taking differently: 60 mg Oral DAILY, Takes a total of 90 mg daily, Reported on 02/19/2023 gabapentin (NEURONTIN) 300 MG capsule Take 300 mg by mouth 4 times daily 0 Active pantoprazole (PROTONIX) 20 MG EC tablet Take 20 mg by mouth 2 times daily 0 Active cyanocobalamin (VITAMIN B-12) 1000 MCG tablet Take 1,000 mcg by mouth daily 0 Active oxyCODONE (ROXICODONE) 5 MG tabletIndications:T ype 2 diabetes mellitus with complication, without long-term current use of insulin (H),Peroneal tendon tear, right, sequela,Post-operat jaki state Take 1-2 tablets (5-10 mg) by mouth every 4 hours as needed for moderate to severe pain 30 tablet 0 02/26/2023 Active senna-docusate (SENOKOT-S/PERICOLA CE) 8.6-50 MG tabletIndications:T ype 2 diabetes mellitus with complication, without long-term current use of insulin (H),Peroneal tendon tear, right, sequela,Post-operat jaki state Take 1-2 tablets by mouth 2 times daily 30 tablet 0 02/26/2023 Active ondansetron (ZOFRAN ODT) 4 MG ODT tabIndications:Type 2 diabetes mellitus with complication, without long-term current use of insulin (H),Peroneal tendon tear, right, sequela,Post-operat jaki state Take 1 tablet (4 mg) by mouth every 8 hours as needed for nausea 4 tablet 0 02/26/2023 Active HYDROcodone-acetami nophen (NORCO) 5-325 MG tabletIndications:P ost-operative state Take 1 tablet by mouth every 4 hours as needed for pain 30 tablet 0 03/06/2023 Active escitalopram (LEXAPRO) 10 MG tablet Take 1 tablet by mouth daily at 2 pm 0 05/07/2023 Active Hospital, Clinic, or Other Facility Administered Medication Ordered Dose Route Frequency Start Date End Date Status 2 mL bupivacaine (MARCAINE) preservative free injection 0.5% (20 mL vial)Indications:Right foot pain,Peroneal tendonitis, right,Sinus tarsitis, right,Coello's neuroma, right 2 mL 01/04/2023 Active triamcinolone (KENALOG-40) injection 40 mgIndications:Right foot pain,Peroneal tendonitis, right,Sinus tarsitis, right,Coello's neuroma, right 40 mg 01/04/2023 Active Active Problems Problem Noted Date Diagnosed Date Chest pain 03/16/2020 Overview: Normal stress test 2019 Per cards e-consult, stress test isn't 100% negative predicted. Given intermediate risk, he though CT angio would be reasonable. Ordered.March 16, 2020 Morbid obesity 08/08/2019 Dry mouth 08/08/2019 Overview: Also dry eyes. Have not had time to investigate. 07/2019 Pain of left lower leg 08/08/2019 Overview: See 07/2019. Likely radicular sx. 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 No pre-cancerous cells. Treated with steroid. No current sx. Monitor with paps. Allergic rhinitis, unspecifi ed seasonality, unspecified trigger 05/05/2011 Hyperlipidemia LDL goal <100 02/15/2010 Type 2 diabetes mellitus wit h complication, without long-term current use of insulin 01/28/2010 Persistent insomnia 01/12/2010 Overview: [place]. Investigating 07/2019 why she is only allowed 20 tabs per month Migraine headache 04/13/2008 Overview: Increased topamax and sleep study ordered 07/2019. If no improvement refer back to neuro. Dr. Martinez, neurology (Problem list name updated by automated process. Provider to review and confirm.) GERD (gastroesophageal reflux disease) 11/03/200 8 Overview: 07/2019 Did not have time to address PPI use. Address next visit Family history of [place] (myocardial infarction) 08/2007 Overview: At early age, father [place] at age 40 Resolved Problems Problem Noted Date Diagnosed Date Resolved Date Left foot pain 01/28/2019 05/22/2019 Right foot pain 01/28/2019 05/22/2019 Peroneal tendinitis of both lower legs 01/28/2019 05/22/2019 Acute pain of right shoulder 01/10/2019 08/07/2019 Chronic right shoulder pain 01/10/2019 05/22/2019 Aftercare following surgery of the musculoskeletal system 07/03/2016 08/07/2019 Ankle pain, left 07/03/2016 08/07/2019 IFG (impaired fasting glucose) 10/03/2015 03/26/2016 Low back pain 11/15/2011 08/07/2019 Overview: Diagnosis updated by automated process. Provider to review and confirm. Menorrhagia 10/18/2011 11/01/2015 Hypertension goal BP (blood pressure) < 130/80 02/15/2010 12/24/2015 Upper back pain 01/18/2010 08/07/2019 Other peripheral enthesopathies 01/14/2010 03/15/2010 Prediabetes 01/12/2010 01/28/2010 Cervical pain 11/24/2009 07/14/2016 CARDIOVASCULAR SCREENING; LD L GOAL LESS THAN 160 07/21/2009 02/15/2010 Lateral epicondylitis 03/24/20092009 Overview: Problem list name updated by automated process. Provider to review Obesity 04/13/2008 08/08/2019 Immunizations Name Administration Dates Next Due COVID-19 MONOVALENT 12+ (Pfizer) 09/24/2020,08/10 Influenza (IIV3) PF 03/09/2011,04/08/2010,2007 Influenza Vaccine >6 months,quad, PF 07/2017,03/23/2016,04/08/2015,2012 Pneumococcal 23 valent 10/06/2014 TD,PF 7+ (Tenivac) 06/16/2005 TDAP Vaccine (Adacel) 03/23/2016 Social History Tobacco Use Types Packs/Day Years Used Date Smoking Tobacco: Never Passive Smoke Exposure: Never Smokeless Tobacco: Never Tobacco Cessation:Counseling Given: Not Answered Alcohol Use Standard Drinks/Week Comments Yes 0 (1 standard drink = 0.6 oz pur e alcohol) Rarely Social Connection and Isolation Panel [NHANES] A nswer Date Recorded Frequency of Communication with Friends and Fami ly Three times a week 08/08/2019 Frequency of Social Gatherin gs with Friends and Family Patient declined 08/08/2019 Attends Christian Services Patient declined 07/13 Active Member of Clubs or Organizations No 08/08/2019 Attends Club or Organization Meetings Patient de clined 08/08/2019 Marital Status 08/08/2019 AUDIT-C Answer Date Recorded Q1: How often do you have a drink containing alc ohol? Monthly or less 08/08/2019 Q2: How many drinks containi ng alcohol do you have on a typical day when you are drinking? 1 or 2 08/08/2019 Q3: How often do you have si x or more drinks on one occasion? Never 08/08/2019 Overall Financial Resource Strain (CARDIA) Answe r Date Recorded How hard is it for you to pa y for the very basics like food, housing, medical care, and heating? Not hard at all 08/08/2019 PHQ-2 Answer Date Recorded PHQ-2 Score 0 11/10/2020 [facility] of Occupat ional Health - Occupational Stress Questionnaire Answer Date Recorded Feeling of Stress Rather much 08/08/2019 Exercise Vital Sign Answer Date Recorde d Days of Exercise per Week 0 days 2019 Minutes of Exercise per Session 0 min 08/08/2019 PRAPARE - Transportation Answer Date Re corded In the past 12 months, has l ack of transportation kept you from medical appointments or from getting medications? No 07/13 In the past 12 months, has l ack of transportation kept you from meetings, work, or from getting things needed for daily living? No 08/08/2019 Adolescent Education Answer Date Record ed Getting School Help Needed Not on file 03/06 Education Answer Date Recorded What is the highest level of school you have completed or the highest degree you have received? 12th grade 08/08/2019 Sex and Gender Information Value Date Recorded Sex Assigned at Not on file Gender Identity Female 08/26/2020 9:05 PM CDT Sexual Orientation Not on file Last Filed Vital Signs Vital Sign Reading Time Taken Comments Blood Pressure 128/80 05/11/2023 1:07 PM INSURANCE OFFICE SUPERVISOR Pulse 87 02/26/2023 3:58 PM CDT Temperature 36.2 ??C (97.2 ??F) 02/26/2023 3:58 PM CD T Respiratory Rate 12 02/26/2023 3:13 PM CDT Oxygen Saturation 95% 02/26/2023 4:00 PM CDT Inhaled Oxygen Concentration - - Weight 87.1 kg (192 lb) 05/11/2023 1:07 PM INSURANCE OFFICE SUPERVISOR Height 156 cm (5' 1.42) 02/26/2023 11:19 AM CDT Body Mass Index 35.79 02/26/2023 11:19 AM CDT Plan of Treatment Not on file Care Teams Double End Tenoner Setter Relationship Specialty Start Date End Date Sudha Greene NP [facility] [address] [place] [address] PCP - General 11/01/22 Agatha Null, DPM, Podiatry/Foot and Ankle Surgery [address] [address] [place] [address] Assigned Musculoskeletal Provider 11/04/22
--- OUTSIDE RECORDS SUMMARY | 2023-07-02 13:24 | XMS_ITS | Encounter Summary ---
Author Name Unknown Organization [facility] Address [address] [place] [address] Care Team Providers Care Equipment Service Engineer Name Role Phone Noreen Flores APRN SENIOR ENLISTED ADVISOR Unavailable Sudha Greene NP Primary Care Provider Agatha Null DPM, Podiatry /Foot and Ankle Surgery Unavailable Reason for Referral * Rehab Therapy Physical Therapy (Routine: Next available opening) - Pending Review Specialty Diagnoses / Procedures Referred By Rylie garcia Referred To Contact Diagnoses Post-operative state Edema of both lower extremities due to peripheral venous insufficiency Agatha Null DPM, Podiatry/Foot and Ankle Surgery [address] [place] [address] Referral ID Status Reason Start Date Expiration Date V isits Requested Visits Authorized [id number] Pending Review 03/13/2023 03/12/2024 1 1 Question Answer Preferred Location: Other (external) - Use Comments Non-internal location selection reason: Patient Preference/Choice Scheduling Instructions: Please call to schedule your appointment Class External referral [5] Course of Action Evaluation and Treatment Adult or Pediatrics Adult Specialty Services: Per Associated Diagnosis Additional Information: Stretching, strengthening, isotonic stretches Comments Please be aware that coverage of these services is subject to the terms and limitations of your health insurance plan. Call member services at your health plan with any benefit or coverage questions. Please call to schedule your appointment Reason for Visit * Reason Comments Post-op Visit Repair peroneal tend on, right ankle Encounter Details Date Type Department Care Team (Late st Contact Info) Description 03/13/2023 10:15 AM CDT Office Visit [facility] Podiatry [address] [place] [address] Agatha Null DPM, Podiatry/Foot and Ankle Surgery [address] [place] [address] Post-operative state (Primary Dx); Edema of both lower extremities due to peripheral venous insufficiency Social History Tobacco Use Types Packs/Day Years [...] Friends and Family Patient declined 08/08/2019 Attends Orthodox Services Patient declined 07/13 Active Member of [...] Answer Date Recorded PHQ-2 Score 0 11/10/2020 [facility] of Occupat ional Health - Occupational Stress [...] PM CDT Sexual Orientation Not on file COVID-19 Exposure Response Date Recorded In the last 10 days, have yo u been in contact with someone who was confirmed or suspected to have Coronavirus/COVID-19? No / Unsure 03/13/2023 9:59 AM CDT documented as of this encounter Last Filed Vital Signs Vital Sign Reading Time Taken Comments Blood Pressure 132/84 03/13/2023 10:14 AM CDT Pulse - - Temperature - - Respiratory Rate - - Oxygen Saturation - - Inhaled Oxygen Concentration - - Weight 87.1 kg (192 lb) 03/13/2023 10:14 AM CDT Height - - Body Mass Index 35.79 02/26/2023 11:19 AM CDT documented in this encounter Patient Instructions * Patient Instructions* Dafne Guerrero MA - 03/13/2023 10:15 AM CDT Thank you for choosing [facility] Podiatry / Foot & Ankle Surgery! DR NULL'S CLINIC: [facility] [address] [place] [address] [place] [address] TRIAGE LINE: [phone] APPOINTMENTS: [phone] RADIOLOGY: [phone] SET UP SURGERY: [phone] PHYSICAL THERAPY: [phone] FAX NUMBER: [phone] BILLING QUESTIONS: [phone] Follow up: 1 month SCAR CARE PROTOCOL Scarring is an unfortunate but unavoidable part of surgery. Every person scars differently and there is no way to predict how an individual's final scar will look. Now that the sutures have been removed one can begin taking some steps to help minimize the appearance of scarring. WOUND HEALING As soon as the skin is incised during surgery, the body is taking steps to prepare for healing. After about 3 days, the body has sent cells to the incision to begin the healing process. These cells, called fibroblasts, make collagen, a protein in the skin that helps provide strength. Once the skin has been sufficiently strengthened, the sutures are removed. Over the next year, the body synthesizes new collagen and breaks down old collagen to help achieve a strong scar that allows the foot/ankleto function appropriately. This is where patients can help the appearance of the scar, as it will plant changer the next year. STEPS 1. Do not expose the scar to the sun for 1 year. 2. Any sun exposure may permanently darken the appearance of the scar. 3. Wear shoes/socks or cover your scar with zinc oxide. 4. Massage the scar 2-3 times per day. -Massage the entire length of the scar with gentle to moderate pressure. -Pressure can help flatten the scar. 5. Lotion/Vitamin E helps keep the tissue soft. 6. Try over the counter scar products such as Mederma or Scar Zone. -These are available at any pharmacy without a prescription. -Patients must use these for extended periods of time (6-12 months) to see a difference. documented in this encounter Progress Notes * Agatha Null DPM, Podiatry/Foot and Ankle Surgery - 03/13/2023 10:15 AM CDT Podiatry / Foot and Ankle Surgery Progress Note March 13, 2023 Subject: Patient was seen for 2 week status post right peroneal tendon repair. Denies fever, nausea, vomiting. Notes the pain is doing much better today. Objective: Vitals: BP 132/84 Wt 87.1 kg (192 lb) LMP 10/30/2011 BMI 35.79 kg/m?? BMI= Body mass index is 35.79 kg/m??. General: Patient is alert and orientated. NAD. Vascular: DP and PT pulses are palpable. No edema or varicosities noted. CFT's < 3secs. Skin temp is normal. Neuro: Light and gross touch sensation intact to digits, dorsum, and plantar aspects of the feet. Derm: Dressing is clean dry and intact. Sutures are intact. No redness, dehiscence or signs of acute infection noted. Musculoskeletal: No foot deformity noted. Assessment: Post-operative state Medical Decision Making/Plan: At this time the sutures were removed. Patient to get the foot wet and lotion the foot. She can wear regular sock and Tej bandage or compression sock. She was given an order for compression socks. We will have her start some physical therapy for strengthening in 2 weeks. She was given an order for this as well. She can start minimal weightbearing in the boot in 2 weeks. We will have her follow-up in 1 month.. All questions were answered to patient's satisfaction and she will call further questions or concerns. Patient Risk Factor: Patient is a low risk factor for infection. Agatha Null DPM, Podiatry/Foot and Ankle Surgery documented in this encounter Plan of Treatment Scheduled Referrals Name Type Priority Associated Diagnoses Orde r Schedule Physical Therapy Referral Referral Routine: Next available opening Post-operative state Edema of both lower extremities due to peripheral venous insufficiency Expected: 03/13/2023 (Approximate), Expires: 03/13/2024 documented as of this encounter Visit Diagnoses Diagnosis Post-operative state- Primary Other postprocedural status Edema of both lower extremities due to peripheral venous insufficiency documented in this encounter Additional Health Concerns Assessment Noted Time PHQ-9 Depression Total Score: 7 11/11/19 21 1:31 PM CDT documented as of this encounter Care Teams Equipment Service Engineer Relationship Specialty Start Date End Date Sudha Greene NP [facility] [address] [facility] [place] [address] PCP - General 11/01/22 Jeana-Noreen Miles APRN SENIOR ENLISTED ADVISOR [address] [place] [address] [place] [address] Assigned PCP 08/05/22 03/16/23 Agatha Null DPM, Podiatry/Foot and Ankle Surgery [address] [place] [address] Assigned Musculoskeletal Provider 11/04/22 documented as of this encounter
--- OUTSIDE RECORDS SUMMARY | 2023-07-02 13:24 | XMS_ITS | Encounter Summary ---
Author Name Unknown Organization [facility] Address [address] [place] [address] Care Team Providers Care Electroplater Apprentice Name Role Phone Sudha Greene NP Primary Care Provider Agatha Null DPM, Podiatry /Foot and Ankle Surgery Unavailable Reason for Visit * Reason Comments Post-op Visit Encounter Details Date Type Department Care Team (Late st Contact Info) Description 05/11/2023 1:30 PM SUPERVISOR ELECTRIC Office Visit [facility] Podiatry [address] [place] [address] [place], [place] [address] Agatha Null DPM, Podiatry/Foot and Ankle Surgery [address] [place], [place] [address] Post-operative state (Primary Dx) Social History Tobacco Use Types Packs/Day Years [...] Friends and Family Patient declined 08/08/2019 Attends [employer] Services Patient declined 07/13 Active Member of [...] Answer Date Recorded PHQ-2 Score 0 11/10/2020 [facility] Occupat ional Health - Occupational [...] PM CDT Sexual Orientation Not on file documented as of this encounter Last Filed Vital Signs Vital Sign Reading Time Taken Comments Blood Pressure 128/80 05/11/2023 1:07 PM SUPERVISOR ELECTRIC Pulse - - Temperature - - Respiratory Rate - - Oxygen Saturation - - Inhaled Oxygen Concentration - - Weight 87.1 kg (192 lb) 05/11/2023 1:07 PM SUPERVISOR ELECTRIC Height - - Body Mass Index 35.79 02/26/2023 11:19 AM CDT documented in this encounter Progress Notes * Agatha Null, MARÍA, Podiatry/Foot and Ankle Surgery - 05/11/2023 1:30 PM SUPERVISOR ELECTRIC Podiatry / Foot and Ankle Surgery Progress Note May 11, 2023 Subject: Patient was seen for 10 weeks s/p right peroneal tendon repair. Notes some throbbing and some numbness to the area but overall doing well. Denies fever, nausea, calf pain, shortness of breath. Objective: Vitals: LMP 10/30/2011 BMI= There is no height or weight on file to calculate BMI. General: Patient is alert and orientated. NAD. Vascular: DP and PT pulses are palpable. No edema or varicosities noted. CFT's < 3secs. Skin temp is normal. Neuro: Light and gross touch sensation intact to digits, dorsum, and plantar aspects of the feet. Derm: Incision is well-healed at this time. Musculoskeletal: No foot deformity noted. Assessment: Post-operative state Medical Decision Making/Plan: At this time she will progress her activity as tolerated. She can wear an ankle brace or not. Discussed that if she is doing more increased activity may be beneficial towear it. We will have her follow-up as needed. All questions were answered to patient satisfaction and she will call further questions or concerns.Patient Risk Factor: Patient is a low risk factor for infection. Agatha Null DPM, Podiatry/Foot and Ankle Surgery CST documented in this encounter Plan of Treatment Not on file documented as of this encounter Visit Diagnoses Diagnosis Post-operative state- Primary Other postprocedural status documented in this encounter Additional Health Concerns Assessment Noted Time PHQ-9 Depression Total Score: 7 11/11/19 21 1:31 PM CDT documented as of this encounter Care Teams Electroplater Apprentice Relationship Specialty Start Date End Date Sudha Greene NP [address] [address] PCP - General 11/01/22 Agatha Null DPM, Podiatry/Foot and Ankle Surgery [address] [place] [address] Assigned Musculoskeletal Provider 11/04/22 documented as of this encounter
--- OUTSIDE RECORDS SUMMARY | 2023-07-02 13:24 | XMS_ITS ---
Author Name Unknown Organization [facility] Address [address] [place] [address] Care Team Providers Care Disability Rater Name Role Phone Unavailable Unavailable Unavailable Surgery Details Not on file Complications Check Surgery Details section. Procedure Estimated Blood Loss Check Surgery Details section. Procedure Findings Check Surgery Details section. Procedure Specimens Taken Check Surgery Details section.
--- OUTSIDE RECORDS SUMMARY | 2023-07-02 13:24 | XMS_ITS | Referral Summary ---
Author Name Unknown Organization [facility] Address [address] [place] [address] Care Team Providers Care Electrical Inspector Name Role Phone Unavailable Primary Care Provider Unavailabl e Source Comments Patient records contain information from all sites at [facility]. For routine questions regarding patient records, call [phone] during business hours, M-F 8:00 AM - 5:00 PM Central Time. Record requests for emergency care only can be directed to [phone] at any time.[facility] Allergies Active Allergy Reactions Criticality Noted Date [...] 11/16/2021 10:41 AM CDT Plan of Treatment Not on file [facility] [place] [phone]
--- OUTSIDE RECORDS SUMMARY | 2023-07-02 13:24 | XMS_ITS | Encounter Summary ---
Author Name Unknown Organization [place] Address [address] [place] [address] Care Team Providers Care Camp Dining Room Attendant Name Role Phone Noreen Flores APRN SUPERVISOR CURED MEATS Unavailable Sudha Greene NP Primary Care Provider Agatha Null DPM, Podiatry /Foot and Ankle Surgery Unavailable Reason for Visit * Reason Onset Date Comments Physical Therapy 03/16/2023 Surgery notes Encounter Details Date Type Department Care Team (Late st Contact Info) Description 03/16/[address] [facility] Podiatry [address] [place] [place] [address] Agatha Null DPM, Podiatry/Foot and Ankle Surgery [address] [place] [address] Physical Therapy (Surgery notes) Social History Tobacco Use Types Packs/Day Years Used Date Smoking Tobacco: Never Passive Smoke Exposure: Never Smokeless Tobacco: Never Alcohol Use Standard Drinks/Week Comments Yes 0 (1 standard drink = 0.6 oz pur e alcohol) Rarely Social Connection and Isolation Panel [NHANES] A nswer Date Recorded Frequency of Communication with Friends and Fami ly Three times a week 08/08/2019 Frequency of Social Gatherin gs with Friends and Family Patient declined 08/08/2019 Attends Hoahaoism Services Patient declined 07/13 Active Member of [...] Answer Date Recorded PHQ-2 Score 0 11/10/2020 [facility] [place] of Occupat ional Health - Occupational Stress [...] documented as of this encounter Miscellaneous Notes * Telephone Encounter - Nenita Norton RN - 03/16/2023 4:07 PM CDT Orders were faxed to [facility]: and confirmed it went through via [employer]. Phone call and let staff know orders were faxed. Yaakov Norton, RN * Telephone Encounter - GeronimoSloane gomez - 03/16/2023 12:47 PM CDT [facility] Phone Message May a detailed message be left on voicemail: no Reason for Call: PT is requesting surgery notes fax [phone] documented in this encounter Plan of Treatment Not on file documented as of this encounter Visit Diagnoses Not on filedocumented in this encounter Additional Health Concerns Assessment Noted Time PHQ-9 Depression Total Score: 7 11/11/19 21 1:31 PM CDT documented as of this encounter Care Teams Camp Dining Room Attendant Relationship Specialty Start Date End Date Sudha Greene NP [address] [address] PCP - General 11/01/22 Noreen Flores APRN SUPERVISOR CURED MEATS [address] [facility] [place] [address] Assigned PCP 08/05/22 03/16/23 Agatha Null DPM, Podiatry/Foot and Ankle Surgery [address] [place] [address] Assigned Musculoskeletal Provider 11/04/22 documented as of this encounter
--- OUTSIDE RECORDS SUMMARY | 2023-07-02 13:24 | XMS_ITS | Encounter Summary ---
Author Name Unknown Organization [facility] Address [address] [place] [address] Care Team Providers Care Dish Stacker Name Role Phone Sudha Greene NP Primary Care Provider Agatha Null DPM, Podiatry /Foot and Ankle Surgery Unavailable Reason for Visit * Reason Comments Post-op Visit right peroneal tendo n repair Encounter Details Date Type Department Care Team (Late st Contact Info) Description 04/10/2023 10:45 AM CDT Office Visit [facility] Podiatry [address] [place] [address] [place], [place] [id number] Agatha Null DPM, Podiatry/Foot and Ankle Surgery [address] [place], [place] [address] Post-operative state (Primary Dx) Social History Tobacco [...] Answer Date Recorded PHQ-2 Score 0 11/10/2020 [facility] [place] of Occupat ional Health - Occupational Stress [...] Sign Reading Time Taken Comments Blood Pressure 142/80 04/10/2023 10:39 AM CDT Pulse - - Temperature - - Respiratory Rate - - Oxygen Saturation - - Inhaled Oxygen Concentration - - Weight 87.1 kg (192 lb) 04/10/2023 10:39 AM CDT Height - - Body Mass Index 35.79 02/26/2023 11:19 AM CDT documented in this encounter Patient Instructions * Patient Instructions* Dafne Guerrero MA - 04/10/2023 10:45 AM CDT Thank you for choosing [facility] Podiatry / Foot & Ankle Surgery! DR [facility]: [facility] [address] [place] [address] [place] [address] TRIAGE LINE: [phone] APPOINTMENTS: [phone] RADIOLOGY: [phone] SET UP SURGERY: [phone] PHYSICAL THERAPY: [phone] FAX NUMBER: [phone] BILLING QUESTIONS: [phone] Follow up: 1 month documented in this encounter Progress Notes * Agatha Null DPM, Podiatry/Foot and Ankle Surgery - 04/10/2023 10:45 AM CDT Podiatry / Foot and Ankle Surgery Progress Note April 10, 2023 Subject: Patient was seen for 6 weeks s/p right peroneal tendon repair. Notes some throbbing and some numbness to the area but overall doing well. Denies fever, nausea, calf pain, shortness of breath. Objective: Vitals: Wt 87.1 kg (192 lb) LMP 10/30/2011 [...] noted. Assessment: Post-operative state Medical Decision Making/Plan: We will have her continue in the boot for the next 2 weeks. In 2 weeks she can transition to an ankle brace and shoes around the house for a week in the boot outside of the house for that week. She will be able to drive up with the boot on when she gets to where she isgoing. After a week of ankle brace and shoes in the house if she is feeling well she can just progress to that and not the boot any further. We will have her follow-up in 1 month for reassessment. She will continue with physical therapy. She was fitted with an ankle brace today. Patient Risk Factor: Patient is a low [...] documented as of this encounter Care Teams Dish Stacker Relationship Specialty Start Date End Date Sudha Greene NP [address] [address] PCP - General 11/01/22 Agatha Null DPM, Podiatry/Foot and Ankle Surgery [address] [place] [address] Assigned Musculoskeletal Provider 11/04/22 documented as of this encounter
--- OUTSIDE RECORDS SUMMARY | 2023-07-02 13:24 | XMS_ITS | Encounter Summary ---
Author Name Unknown Organization [place] Address [address] [place] [address] Care Team Providers Care Composition Floor Layer Name Role Phone Sudha Greene NP Primary Care Provider Agatha Null DPM, Podiatry /Foot and Ankle Surgery Unavailable Encounter Details Date Type Department Care Team (Latest Contact Info) Description 05/11/2023 Travel Social History Tobacco Use Types Packs/Day [...] Friends and Family Patient declined 08/08/2019 Attends [employer] Services Patient declined 07/13 Active Member of [...] Answer Date Recorded PHQ-2 Score 0 11/10/2020 [facility] [place] of Occupat ional Health - Occupational Stress [...] documented as of this encounter Care Teams Composition Floor Layer Relationship Specialty Start Date End Date Sudha Greene NP [address] [address] PCP - General 11/01/22 Agatha Null, DPNita, Podiatry/Foot and Ankle Surgery [address] [place] [address] Assigned Musculoskeletal Provider 11/04/22 documented as of this encounter
--- OUTSIDE RECORDS SUMMARY | 2023-07-02 13:24 | XMS_ITS | Encounter Summary ---
Author Name Unknown Organization [facility] Address [address] [place] [address] Care Team Providers Care Advertising Manager Name Role Phone Unavailable Primary Care Provider Unavailabl e Reason for Referral * Outpatient (Routine) - Closed Specialty Diagnoses / Procedures Referred By Rylie garcia Referred To Contact Neurology Diagnoses Sleep Apnea Sudha Greene, C.N.P. [address] [place] [address] [facility] Referral ID Status Reason Start Date Expiration Date Visits Re quested Visits Authorized [id number] Closed 10/19/2022 10/19/2023 1 1 Encounter Details Date Type Department Care Team (Late st Contact Info) Description 10/19/2022 [facility] [address] [place], [place] [phone] Sudha Greene, C.N.P. [address] [place] [address] Sleep Apnea (Primary Dx) Social History Tobacco Use Types Packs/Day Years Used Date Smoking Tobacco: Never Smokeless Tobacco: Never Nutrition Answer Date Recorded Nutrition: EVOO Fat [...] Type Priority Associated Diagnoses Orde r Schedule Neurology Referral Outpatient Referral Routine Sleep Apnea Expected: 10/19/2022 (Approximate), Expires: 01/20/2024 documented as of this encounter Visit Diagnoses Diagnosis Sleep Apnea- Primary documented in this encounter
--- OUTSIDE RECORDS SUMMARY | 2023-07-02 13:24 | XMS_ITS | Encounter Summary ---
Author Name Unknown Organization [place] Address [address] [place] [address] Care Team Providers Care Director Video Name Role Phone Noreen Flores APRN PASSENGER BRAKEMAN Unavailable Sudha Greene NP Primary Care Provider [phone] Agatha Null DPM, Podiatry /Foot and Ankle Surgery Unavailable Encounter Details Date Type Department Care Team (Latest Contact Info) Description 03/13/2023 Travel Social History Tobacco Use Types Packs/Day [...] Friends and Family Patient declined 08/08/2019 Attends Denominational Services Patient declined 07/13 Active Member of [...] Answer Date Recorded PHQ-2 Score 0 11/10/2020 [facility] [place] of Occupat ional Health - Occupational Stress [...] as of this encounter Care Teams Director Video Relationship Specialty Start Date End Date Sudha Greene NP [facility] [address] [place] [address] PCP - General 11/01/22 Noreen Flores APRN CNP [address] [facility] [place] [address] Assigned PCP 08/05/22 03/16/23 Agatha Null, MARÍA, Podiatry/Foot and Ankle Surgery [address] [address] Assigned Musculoskeletal Provider 11/04/22 documented as of this encounter
--- OUTSIDE RECORDS SUMMARY | 2023-07-02 13:24 | XMS_ITS | Encounter Summary ---
Author Name Unknown Organization [facility] Address [address] [place] [address] Care Team Providers Care Log Hooker Name Role Phone Sudha Greene NP Primary Care Provider Agatha Null DPM, Podiatry /Foot and Ankle Surgery Unavailable Encounter Details Date Type Department Care Team (Latest Contact Info) Description 04/10/2023 Travel Social History Tobacco Use Types Packs/Day [...] Friends and Family Patient declined 08/08/2019 Attends [employer] Services Patient declined 07/13 Active Member of [...] Answer Date Recorded PHQ-2 Score 0 11/10/2020 [facility] [place] of Occupat ional Health - Occupational Stress [...] documented as of this encounter Care Teams Log Hooker Relationship Specialty Start Date End Date Sudha Greene NP [address] [address] PCP - General 11/01/22 Agatha Null DPM, Podiatry/Foot and Ankle Surgery [address] [place] [address] Assigned Musculoskeletal Provider 11/04/22 documented as of this encounter
--- OUTSIDE RECORDS SUMMARY | 2023-07-02 13:24 | XMS_ITS | Clinical Summary ---
Author Name Unknown Organization [facility] Address [address] [place] [address] Care Team Providers Care Lithographic Press Operator Apprentice Name Role Phone Sudha Greene NP Primary Care Provider Agatha Null DPM, Podiatry /Foot and Ankle Surgery Unavailable Allergies Active Allergy Reactions Criticality Noted Date [...] sprayIndications:Al lergic rhinitis, unspecified seasonality, unspecified trigger Lillian 1-2 sprays into both nostrils daily 16 [...] review and confirm.) GERD (gastroesophageal reflux disease) 8 Overview: 07/2019 Did not have time to address PPI use. Address next visit Family history of [place] (myocardial infarction) 08/2007 Overview: At early age, father [place] at age 40 Resolved Problems Problem Noted [...] process. Provider to review Obesity 04/13/2008 08/08/2019 Encounters Date Type Department Care Team Description 05/11/2023 1:30 PM BOAT DISPATCHER Office Visit [facility] Podiatry [address] [place] [address] Agatha Null DPM, Podiatry/Foot and Ankle Surgery Post-operative state (Primary Dx) 05/11/2023 Travel 04/10/2023 10:45 AM CDT Office Visit [facility] Podiatry [address] [place] [address] Agatha Null DPM, Podiatry/Foot and Ankle Surgery Post-operative state (Primary Dx) 04/10/2023 Travel from Last 3 Months Immunizations Name Administration Dates Next Due COVID-19 MONOVALENT 12+ (Pfizer) 09/24/2020,08/10 Influenza (IIV3) PF 03/09/2011,04/08/2010,2007 Influenza Vaccine >6 months,quad, PF 07/2017,03/23/2016,04/08/2015,2012 Pneumococcal 23 valent 10/06/2014 TD,PF 7+ (Tenivac) 06/16/2005 TDAP Vaccine (Adacel) 03/23/2016 Family History Medical History Relation Comments Lipids Brother 2 Hypertension Brother 3 Diabetes Brother 4 Kidney Disease Brother 5 Cardiovascular Father [place] early 40s, almodovar bsequent bipass Diabetes Father Hypertension Father Lipids Father Diabetes Maternal Grandfather Hypertension Maternal Grandfather Lipids Maternal Grandfather Diabetes Maternal Grandmother Hypertension Maternal Grandmother Lipids Maternal Grandmother Arthritis Mother OA Cardiovascular Mother [place] age 72 Diabetes Mother Type II Hypertension [...] Friends and Family Patient declined 08/08/2019 Attends Pentecostalism Services Patient declined 07/13 Active Member of [...] Date Recorded PHQ-2 Score 0 11/10/2020 [facility] [place] of Occupat ional Health - Occupational Stress [...] Comments Blood Pressure 128/80 05/11/2023 1:07 PM BOAT DISPATCHER Pulse 87 02/26/2023 3:58 PM CDT Temperature 36.2 ??C (97.2 ??F) 02/26/2023 3:58 PM CD T Respiratory Rate 12 02/26/2023 3:13 PM CDT Oxygen Saturation 95% 02/26/2023 4:00 PM CDT Inhaled Oxygen Concentration - - Weight 87.1 kg (192 lb) 05/11/2023 1:07 PM BOAT DISPATCHER Height 156 cm (5' 1.42) 02/26/2023 11:19 AM CDT Body Mass Index 35.79 02/26/2023 11:19 AM CDT Plan of Treatment Health Maintenance Due Date Last Done Comments CT COLONOGRAPHY 1963 FLEX SIG 1963 sDNA (Cologuard) 1963 COLONOSCOPY 1973 Pneumococcal Vaccine: Pediatrics (0 to 5 Years) and At-Risk Patients (6 to 64 Years) (2 of 2 - PCV) 10/07/2015 10/06/2014 A1C 07/15/2020 01/13/2020, 07/13, 01/02/2019, Additional history exists DIABETIC FOOT EXAM 08/08/2020 08/08/2019, 0 06/25/2018, 12/22/2015, Additional history exists LIPID 08/08/2020 08/08/2019, 03/13, 02/17/2017, Additional history exists MICROALBUMIN 08/08/2020 08/08/2019, 03/13, 09/25/2016, Additional history exists YEARLY PREVENTIVE VISIT 08/08/2020 08/08/19 20, 07/25/2018, 05/03/2016, Additional history exists MAMMO SCREENING 09/03/2020 09/03/2018, 09/10, 04/16/2015, Additional history exists COLORECTAL CANCER SCREENING 01/11/2021 FIT 01/11/2021 01/12/2020, 01/09, 01/25/2019, Additional history exists ANNUAL REVIEW OF HM ORDERS 03/16/2021 03/16/2020 HPV TEST 05/03/2021 05/03/2016, 04/12, 10/06/2014, Additional history exists PAP 05/03/2021 05/03/2016, 09/10, 05/05/2011, Additional history exists PHQ-9 05/12/2021 11/10/2020, 1011/2019, 08/08/2019, Additional history exists EYE EXAM 05/17/2021 05/17/2020, 02/26/2019 BMP 11/10/2021 11/10/2020, 10/10, 08/08/2019, Additional history exists COVID-19 Vaccine (2022- season) 2023 06/07/2022, 06/24/2021, 09/24/2020, Additional history exists INFLUENZA VACCINE (#1) 2023 , 08/08/2019 (Declined), 06/12/2017, Additional history exists RSV VACCINE ( & 60+) (1 - 1-dose 60+ series) 2023 ADVANCE CARE PLANNING 07/25/2023 07/25/2018 DTAP/TDAP/TD IMMUNIZATION (2 - Td or Tdap) 03/23/2026 03/23/2016, 06/16/2005, 06/16/2005 MIGRAINE ACTION PLAN Completed 03/09/2011, 12/17/19 10 HEPATITIS C SCREENING Completed 09/25/2016 DEPRESSION ACTION PLAN Completed 8, 06/12/2017, 11/01/2015, Additional history exists HIV SCREENING Completed 04/09/2018 ZOSTER IMMUNIZATION Completed 10/10/2022, 3 HPV IMMUNIZATION Aged Out No longer e ligible based on patient's age to complete this topic IPV IMMUNIZATION Aged Out No longer e ligible based on patient's age to complete this topic MENINGITIS IMMUNIZATION Aged Out No l onger eligible based on patient's age to complete this topic RSV MONOCLONAL ANTIBODY Aged Out No l onger eligible based on patient's age to complete this topic Care Teams Lithographic Press Operator Apprentice Relationship Specialty Start Date End Date Sudha Greene NP [facility] [address] [place] [address] PCP - General 11/01/22 Agatha Null, MARÍA, Podiatry/Foot and Ankle Surgery [address] [address] Assigned Musculoskeletal Provider 11/04/22
--- OUTSIDE RECORDS SUMMARY | 2023-07-02 13:25 | XMS_ITS | Encounter Summary ---
Author Name Unknown Organization [place] Address [address] [place] [address] Care Team Providers Care Watchguard Name Role Phone Noreen Flores APRN CLEANING PORTER Unavailable Sudha Greene NP Primary Care Provider [phone] Agatha Null DPM, Podiatry /Foot and Ankle Surgery Unavailable Encounter Details Date Type Department Care Team (Latest Contact Info) Description 03/06/2023 Travel Social History Tobacco Use Types Packs/Day [...] Friends and Family Patient declined 08/08/2019 Attends [employer] Patient declined 07/13 Active Member of [...] Answer Date Recorded PHQ-2 Score 0 11/10/2020 [facility] [place] of Occupat ional Health - Occupational Stress [...] suspected to have Coronavirus/COVID-19? No / Unsure 03/06/2023 9:58 AM CDT documented as of this encounter Plan of Treatment Not on file documented as of this encounter Visit Diagnoses Not on filedocumented in this encounter Additional Health Concerns Assessment Noted Time PHQ-9 Depression Total Score: 7 11/11/19 21 1:31 PM CDT documented as of this encounter Care Teams Watchguard Relationship Specialty Start Date End Date Sudha Greene NP [facility] [address] [place] [address] PCP - General 11/01/22 Noreen Flores APRN CNP [address] [facility] [place] [address] Assigned PCP 08/05/22 03/16/23 Agatha Null, MARÍA, Podiatry/Foot and Ankle Surgery [address] [address] Assigned Musculoskeletal Provider 11/04/22 documented as of this encounter
--- OUTSIDE RECORDS SUMMARY | 2023-07-02 13:25 | XMS_ITS | Encounter Summary ---
Author Name Unknown Organization [facility] Address [address] [place] [id number] Care Team Providers Care Field Scout Name Role Phone Noreen Flores APRN CANINE DEPUTY Unavailable Sudha Greene NP Primary Care Provider Agatha Nieves DPM, Podiatry /Foot and Ankle Surgery Unavailable Reason for Visit * Auth/Cert (Routine) Specialty Diagnoses / Procedures Referred By Rylie garcia Referred To Contact Surgery Diagnoses Right foot pain Peroneal tendonitis, right Right foot pain [M79.671] Peroneal tendonitis, right [M76.71] Procedures NV REPAIR FLEX LEG TENDON,PRIM,EA NV REPAIR FLEX LEG TENDON,SECOND,EA NV REPAIR PERONEAL TENDONS NV REPAIR PERONEAL TENDONS,FIB OSTEOTMY Repair peroneal tendon, right ankle [facility] [address] [place] [address] Referral ID Status Reason Start Date Expiration Date Visits Re quested Visits Authorized [id number] 1 1 Encounter Details Date Type Department Care Team (Latest Contact Info) Description 02/26/2023 10:57 AM CDT - 02/26/2023 4:06 PM CDT Hospital Encounter [facility] PreOP/PostOP [address] [place] [address] Agatha Nieves DPM, Podiatry/Foot and Ankle Surgery [address] [place] [address] Post-operative state (Primary Dx); Type 2 diabetes mellitus with complication, without long-term current use of insulin (H); Peroneal tendon tear, right, sequela Discharge Disposition: Home or Self Care Social History Tobacco Use Types Packs/Day Years [...] Answer Date Recorded PHQ-2 Score 0 11/10/2020 [facility] [place] of Occupat ional Health - Occupational Stress [...] things needed for daily living? No 08/08/2019 Education Answer Date Recorded What is the [...] suspected to have Coronavirus/COVID-19? No / Unsure 02/26/2023 10:57 AM CDT documented as of this encounter Last Filed Vital Signs Vital Sign Reading Time Taken Comments Blood Pressure 133/69 02/26/2023 3:58 PM CDT Pulse 87 02/26/2023 3:58 PM CDT Temperature 36.2 ??C (97.2 ??F) 02/26/2023 3:58 PM CD T Respiratory Rate 12 02/26/2023 3:13 PM CDT Oxygen Saturation 95% 02/26/2023 4:00 PM CDT Inhaled Oxygen Concentration - - Weight 86.8 kg (191 lb 4.8 oz) 02/26/2023 11:19 AM CDT Height 156 cm (5' 1.42) 02/26/2023 11:19 AM CDT Body Mass Index 35.66 02/26/2023 11:19 AM CDT documented in this encounter Discharge Instructions * Discharge Instructions* Radha Lawton RN - 02/26/2023 2:[address] AGATHA NIEVES, DPM Podiatry Triage Patient Care Nurses In Call (After Hours): GENERAL ANESTHESIA OR SEDATION ADULT DISCHARGE INSTRUCTIONS [...] YOU MUST MAKE ARRANGEMENTS TO HAVE SOMEONE STAYWITH YOU FOR AT LEAST 24 HOURS AFTER YOUR DISCHARGE. AVOID HAZARDOUS AND STRENUOUS ACTIVITIES. DO NOT MAKE IMPORTANT DECISIONS FOR 24 HOURS. DO NOT [...] STILL NOT ABLE TO URINATE (PASS WATER). Maximum acetaminophen (Tylenol) dose from all sources should not exceed 4 grams (4000 mg) per day. Dose given at 12 pm. Next dose 6 pm. You received Toradol, an IV form of Ibuprofen (Motrin) at 1pm. Do not take any Ibuprofen products until 7pm. DR. AGATHA NIEVES, DPM Podiatry Triage Patient Care Nurses In Call (After Hours): documented in this encounter Medications at Time of Discharge Medication Sig Dispensed Refills Start Date End Date JAY/ARB NOT PRESCRIBED, INTENTIONAL,Indication s:Type 2 diabetes, HbA1c goal < 7% (H),Hypertension goal BP (blood pressure) < 130/80 1 each daily JAY & ARB not prescribed due to not needed 0 04/29/2014 Acetaminophen (TYLENOL PO) Take 1,000 mg by mouth daily as needed for mild pain or fever 0 blood glucose (ACCU-CHEK JANICE) test stripIndications:Type 2 diabetes, HbA1c goal < 7% (H) 1 strip by In Vitro route 2 times daily 100 strip 0 04/11/2014 blood glucose (NO BRAND SPECIFIED) lancets standardIndications:Ty pe 2 diabetes, HbA1c goal < 7% (H) Use to test blood sugar 2 times daily or as directed. 100 each 11 06/16/2020 blood glucose (NO BRAND SPECIFIED) test stripIndications:Type 2 diabetes, HbA1c goal < 7% (H) Use to test blood sugar 2 times daily or as directed. 1 Box 11 06/16/2020 cyanocobalamin (VITAMIN B-12) 1000 MCG tablet Take 1,000 mcg by mouth daily 0 DULoxetine (CYMBALTA) 30 MG capsuleIndications:Fib romyalgia TAKE 1 CAPSULE BY MOUTH EVERY DAY 90 capsule 1 01/20/2021 fluticasone (FLONASE) 50 MCG/ACT nasal sprayIndications:Aller gic rhinitis, unspecified seasonality, unspecified trigger Holden 1-2 sprays into both nostrils daily 16 g 11 08/08/2019 gabapentin (NEURONTIN) 300 MG capsule Take 300 mg by mouth 4 times daily 0 metFORMIN (GLUCOPHAGE) 500 MG tabletIndications:Type 2 diabetes mellitus with complication, without long-term current use of insulin (H) TAKE 2 TABLETS BY MOUTH 2 TIMES DAILY (WITH MEALS) 360 tablet 0 06/18/2020 ondansetron (ZOFRAN ODT) 4 MG ODT tabIndications:Type 2 diabetes mellitus with complication, without long-term current use of insulin (H),Peroneal tendon tear, right, sequela,Post-operative state Take 1 tablet (4 mg) by mouth every 8 hours as needed for nausea 4 tablet 0 02/26/2023 oxyCODONE (ROXICODONE) 5 MG tabletIndications:Type 2 diabetes mellitus with complication, without long-term current use of insulin (H),Peroneal tendon tear, right, sequela,Post-operative state Take 1-2 tablets (5-10 mg) by mouth every 4 hours as needed for moderate to severe pain 30 tablet 0 02/26/2023 pantoprazole (PROTONIX) 20 MG EC tablet Take 20 mg by mouth 2 times daily 0 senna-docusate (SENOKOT-S/PERICOLACE) 8.6-50 MG tabletIndications:Type 2 diabetes mellitus with complication, without long-term current use of insulin (H),Peroneal tendon tear, right, sequela,Post-operative state Take 1-2 tablets by mouth 2 times daily 30 tablet 0 02/26/2023 simvastatin (ZOCOR) 20 MG tabletIndications:Hype rlipidemia LDL goal <100,Type 2 diabetes mellitus with complication, without long-term current use of insulin (H) Take 1 tab daily 90 tablet 3 08/08/2019 SUMAtriptan (IMITREX) 25 MG tabletIndications:Migr suri without status migrainosus, not intractable, unspecified migraine type TAKE 1 TO 2 TABLETS BY MOUTH ONCE FOR MIGRAINE. OK TO REPEAT X 1 AFTER 2HOURS. MAX 12TAB/25DAYS INS 12 tablet 8 07/13/2020 zolpidem (AMBIEN) 5 MG tabletIndications:Pers istent insomnia Take 1 tab nightly 30 tablet 5 09/26/2020 cephALEXin (KEFLEX) 500 MG capsuleIndications:Typ e 2 diabetes mellitus with complication, without long-term current use of insulin (H),Peroneal tendon tear, right, sequela,Post-operative state Take 1 capsule (500 mg) by mouth 2 times daily for 10 days 20 capsule 0 02/26/2023 03/08/2023 enoxaparin ANTICOAGULANT (LOVENOX) 40 MG/0.4ML syringeIndications:Typ e 2 diabetes mellitus with complication, without long-term current use of insulin (H),Peroneal tendon tear, right, sequela,Post-operative state Inject 0.4 mLs (40 mg) Subcutaneous 2 times daily for 10 days 8 mL 0 02/26/2023 03/08/2023 documented as of this encounter Progress Notes * Radha Lawton RN - 02/26/2023 4:09 PM CDT Per Pharmacy, Lovenox changed to once a day instead of twice a day as originally ordered. Dischargepaperwork updated and family aware. * Shante Ellison - 02/26/2023 11:38 AM CDT [facility] Pre-Op PRE-SURGICAL VISIT I visited with Donna and her spouse, Daniel, prior to surgery today. Donna named, I'm 99.9% sure that everything will be fine but there is always that 0.1% in the back of my head, as she reflected on her concern and love for her extended family and her role within her family. At Donna's request, I provided a prayer for health and healing. [facility] remains available. Shante Ellison MDiv Staff Rn Nursery [facility] Pager: [phone] [facility] available 01/01 for emergent requests/referrals, either by having the on-call airconditioning engineer paged or by entering an ALLEN/STAT consult in [facility] (this will also page the on-call airconditioning engineer). documented in this encounter Miscellaneous Notes * Brief Op Note - Agatha Nieves DPM, Podiatry/Foot and Ankle Surgery - 02/26/2023 2:00 PM CDT [facility] Brief Operative Note Pre-operative diagnosis: Right foot pain [M79.671] Peroneal tendonitis, right [M76.71] Post-operative diagnosis Same as pre-operative diagnosis Procedure: Procedure(s): Repair peroneal tendon, right ankle Surgeon: Surgeon(s) and Role: * Agatha Nieves DPM, Podiatry/Foot and Ankle Surgery - Primary Anesthesia: General with Block Estimated Blood Loss: Less than 10 ml Drains: None Specimens: ID Type Source Tests Collected by Time Destination 1 : right foot tendon Tissue Foot, Right SURGICAL PATHOLOGY EXAM Agatha Nieves DPM, Podiatry/Footand Ankle Surgery 02/26/2023 1:30 PM Findings: None. Complications: None. Implants: * No implants in log * CDT * Op Note - Agatha Nieves DPM, Podiatry/Foot and Ankle Surgery - 02/26/2023 1:20 PM CDT [facility] Podiatry Operative Note Patient Name: Megan Choi Patient Date of : 1965 Date of Surgery: 02/26/2023 CSN: [id number] Pre-operative diagnosis: Right foot pain [M79.671] Peroneal tendonitis, right [M76.71] Post-operative diagnosis: Same Procedure: Right peroneal tendon repair with tendon transfer Surgeon: Agtaha Nieves DPM, Podiatry/Foot and Ankle Delivery Engineer(s): None Anesthesia: General with popliteal Hemostasis: Pneumatic thigh tourniquet with electrocautery Estimated Blood Loss: Less than 10 mL Speceimens: Right peroneal tendon Materials: 3-0 FiberWire Indications: Ms. Choi is a 57-year-old female that presented to clinic with pain to the right ankle. It has been going on for months. She had previous peroneal tendon tear on the left and that washad been repaired. She feels that this is going on in her right. X-rays and physical therapy was done without relief of pain. MRI was obtained that showed a peroneal tendon tear in the area of her pain. It was discussed with patient to go in and repair the tendon just like the left ankle. Risk benefits and complications were discussed with patient no guarantees were made. She wishes to proceed with surgery. Procecure: Patient was brought to the operating room placed operating table in the supine position.Anesthesia was administered and the patient was then placed in a lateral decubitus position with the right side up. Thigh tourniquet was applied to the right thigh and the foot was prepped and drapedusing sterile technique. The thigh tourniquet was inflated to 275 mmHg and attention was directed to the lateral aspect of the right ankle. A curvilinear incision approximately 7 cm was made around the back of the fibula and distally down to the base of the fifth metatarsal through skin with a #15 blade. Blunt dissection was used down to level of the peritenon of the peroneal tendon. All vessels t hat were noted were ligated with electrocautery. Once the peritenon was noted this was incised and the tendons were visualized. There was approximately a 2 cm tear at the base of the fibula and the peroneal longus tendon. The tear was removed and the tendon was frayed. This was then transferred to the peroneal brevis tendon with 3-0 FiberWire in a continuous stitch. The wound was flushed with copious amounts of normal saline. The tendon was sent for pathology. The peritenon was reapproximated using 3-0 Vicryl the subcutaneous was reapproximate using 4-0 Vicryl and the skin was reapproximated using 4-0 Prolene. Patient's foot was placed in a dry sterile dressing. Patient taught procedure and anesthesia well was transferred recovery with vital signs stable vascular status intact. Agatha Nieves DPM CDT documented in this encounter Plan of Treatment Not on file documented as of this encounter Procedures Procedure Name Priority Date/Time Associated Diagnosis Comments GLUCOSE BY METER Routine 02/26/2023 2:38 PM CDT SURGICAL PATHOLOGY EXAM Routine 02/26/2023 1:30 PM CDT REPAIR, TENDON, PERONEAL 02/26/2023 12:40 PM CDT Right foot pain Peroneal tendonitis, right GLUCOSE BY METER Routine 02/26/2023 11:1 3 AM CDT NUCLEAR CARDIAC - HIM SCAN 02/22/2023 12:00 AM CDT LAB RESULT - HIM SCAN 02/13/2023 12:00 AM CDT IMAGING OTHER - HIM SCAN 02/13/2023 12:00 AM CDT documented in this encounter Results * (ABNORMAL) Glucose by meter (02/26/2023 2:38 PM CDT) GLUCOSE BY METER POCT 158(H) 70 - 99 mg/dL 02/26/2023 2:46 PM CDT LABORATORY POC Blood, Capillary BLOOD SPECIMEN / Unknown 02/26/2023 2:38 PM CDT 02/26/2023 2:46 PM CDT Agatha Nieves DPM, Podiatry/Foot and Ank le Surgery LAB - [facility] POCT RH LABORATORY POC [facility] Acute Care Lab [address] Lab (1st floor, no room number) [place] [address], [facility] [phone] * Surgical Pathology Exam (02/26/2023 1:30 PM CDT) Case Report Surgical Pathology Report ? Case: [id number] ? Authorizing Provider: ??Chaka, Agatha J, DPM, ? Collected: ? 02/26/2023 01:30 PM ? Podiatry/Foot and Ankle ? Surgery ? Ordering Location: ? [facility] ?? Received: ?02/26/2023 02:11 PM ? Main OR ? Pathologist: ? Dusty Hernandez MD ? Specimen: ?Foot, Right, right foot tendon ? 02/28/2023 10:23 PM [facility] Final Diagnosis A. Right foot tendon: - Benign tendon fibrous tissue without inflammation or atypical cellular proliferations 02/28/2023 10:23 PM [facility] Clinical Information Procedure: Repair peroneal tendon, right ankle - Right Pre-op Diagnosis: Right foot pain [M79.671] Peroneal tendonitis, right [M76.71] Post-op Diagnosis: M79.671 - Right foot pain [ICD-10-CM] M76.71 - Peroneal tendonitis, right [ICD-10-CM] 02/28/2023 10:23 PM [facility] Gross Description A(1). Foot, Right, right foot tendon: The specimen is received in formalin, labeled with the patient's name, medical record number and other identifying information designated right foot tendon. It consists of a 4.7 cm in length by 0.8 cm in width fragment of white-mi fibrous soft tissue with a portion of attached musculature. The specimen is serially sectioned to reveal a white-mi cut surface. Delivery Motorcycle Driver sections are submitted in formalin in 1 cassette. [DEBRA Tomlin(ASCP)] 02/28/2023 10:23 PM [facility] Microscopic Description Microscopic examination is performed with findings supportive of the diagnosis as noted. 02/28/2023 10:23 PM [facility] Performing Labs The technical component of this testing was completed at [facility] 02/28/2023 10:23 PM [facility] Case Images 02/28/2023 10:23 PM [facility] Tissue STRUCTURE OF RIGHT FOOT / Unknown 02/26/2023 1:30 PM CDT 02/26/2023 2:11 PM CDT Agatha Nieves DPM, Podiatry/Foot and Ank le Surgery LAB - [facility] Acute Care Lab [address] 1st floor, [address] [place] [address], [place] [phone] LABORATORY [facility] [address] Lab (1st floor, no room number) [place] [address], [place] [phone] * (ABNORMAL) Glucose by meter (02/26/2023 11:13 AM CDT) [facility] GLUCOSE BY METER POCT 125(H) 70 - 99 mg/dL 02/26/2023 11:20 AM CDT LABORATORY POC Blood, Capillary BLOOD SPECIMEN / Unknown 02/26/2023 11:13 AM CDT 02/26/2023 11:20 AM CDT Agatha Nieves DPM, Podiatry/Foot and Ank le Surgery LAB - [facility] LABORATORY POC [facility] Lab [address] Lab (1st floor, no room number) [place] [address], [place] [phone] * NUCLEAR CARDIAC - HIM SCAN (02/22/2023 12:00 AM CDT) Anatomical Region Laterality Modality Other 02/22/2023 Provider Outside IMG NM ORDERABLES * LAB RESULT - HIM SCAN (02/13/2023 12:00 AM CDT) 02/13/2023 Provider Outside [facility] TE STING * IMAGING OTHER - HIM SCAN (02/13/2023 12:00 AM CDT) Anatomical Region Laterality Modality Other 02/13/2023 Provider Outside IMG IR ORDERABLES documented in this encounter Visit Diagnoses Diagnosis Post-operative state- Primary Other postprocedural status Type 2 diabetes mellitus with complication, without long-term current use of insulin (H) Peroneal tendon tear, right, sequela documented in this encounter Administered Medications Inactive Administered Medications - up to 3 most recent administrations Medication Order MAR Action Action Date Dose Rate Site acetaminophen (TYLENOL) tablet 975 mg 975 mg, Oral, ONCE, On Sun02/26/23 at 1230, For 1 dose, Maximum acetaminophen dose from all sources = 75 mg/kg/day not to exceed 4 grams/day., Pre-procedure $Given 02/26/2023 12:14 PM CDT 975 mg ondansetron (ZOFRAN ODT) ODT tab 4 mg 4 mg, Oral, EVERY 30 MIN PRN, nausea, Starting on Sun02/26/23 at 1442, For 2 doses, MAX total dose = 8 mg, including OR dosing. If not resolved in 15 minutes, then go to step 2 [prochlorperazine (COMPAZINE), if ordered]. With dry hands, peel back foil backing and gently remove tablet. Do not push oral disintegrating tablet through foil backing. Administer immediately on tongue and oral disintegrating tablet dissolves in seconds, then swallow with saliva. Liquid not required., Phase ll ondansetron (ZOFRAN) injection 4 mg 4 mg, Intravenous, EVERY 30 MIN PRN, nausea, Administer over 2-5 Minutes, Starting on Sun02/26/23 at 1442, For 2 doses, MAX total dose = 8 mg, including OR dosing. If not resolved in 15 minutes, then go to step 2 [prochlorperazine (COMPAZINE), if ordered]. Irritant., Phase ll oxyCODONE (ROXICODONE) tablet 10 mg 10 mg, Oral, ONCE PRN, severe pain, Starting on Sun02/26/23 at 1442, For 1 dose, Max: 5 mg for opioid-na??ve patient. Use caution with patient Age GREATER than 65 years, COPD, or CrCl LESS than 50 mL/min., Phase ll oxyCODONE (ROXICODONE) tablet 5 mg 5 mg, Oral, ONCE PRN, moderate pain, Starting on Sun02/26/23 at 1442, For 1 dose, Max: 5 mg for opioid-na??ve patient., Phase ll prochlorperazine (COMPAZINE) injection 5 mg 5 mg, Intravenous, EVERY 6 HOURS PRN, nausea, vomiting, Administer over 1-2 Minutes, Starting on Sun02/26/23 at 1442, Phase ll documented in this encounter Active and Recently Administered Medications Times are shown in CDT. Scheduled Medication Order 02/24/2023 02/25/2023 02/26/2023 acetaminophen (TYLENOL) tablet 975 mg (COMPLETED) 975 mg, Oral, ONCE, On Sun02/26/23 at 1230, For 1 dose, Maximum acetaminophen dose from all sources = 75 mg/kg/day not to exceed 4 grams/day., Pre-procedure 1214 ($Given - Provi donna: Lazara Jacobsen RN) ceFAZolin Sodium (ANCEF) injection 2 g (COMPLETED) Routine, 2 g, Intravenous, PRE-OP/PRE-PROCEDURE, Starting on Sun02/26/23 at 1123, For 1 dose, Give first dose within 1 hour PRIOR to incision. If patient weight is greater than or equal to 120 kg increase dose to 3 g., Indications: Perioperative Pharmacoprophylaxis, Pre-procedure 1256 ($Given - Provi donna: Ronald Franz, CPA TAX TIE LOADER) PRN Medication Order 02/24/2023 02/25/2023 02/26/2023 bupivacaine (MARCAINE) 0.5% preservative free injection (CANCELED) PRN, Starting on Sun02/26/23 at 1342, Intra-procedure 1342 ($Given - Provi donna: Agatha Nieves DPM, Podiatry/Foot and Ankle Surgery) ondansetron (ZOFRAN ODT) ODT tab 4 mg(Linked Group 1) 4 mg, Oral, EVERY 30 MIN PRN, nausea, Starting on Sun02/26/23 at 1442, For 2 doses, MAX total dose = 8 mg, including OR dosing. If not resolved in 15 minutes, then go to step 2 [prochlorperazine (COMPAZINE), if ordered]. With dry hands, peel back foil backing and gently remove tablet. Do not push oral disintegrating tablet through foil backing. Administer immediately on tongue and oral disintegrating tablet dissolves in seconds, then swallow with saliva. Liquid not required., Phase ll ondansetron (ZOFRAN) injection 4 mg(Linked Group 1) 4 mg, Intravenous, EVERY 30 MIN PRN, nausea, Administer over 2-5 Minutes, Starting on Sun02/26/23 at 1442, For 2 doses, MAX total dose = 8 mg, including OR dosing. If not resolved in 15 minutes, then go to step 2 [prochlorperazine (COMPAZINE), if ordered]. Irritant., Phase ll oxyCODONE (ROXICODONE) tablet 10 mg 10 mg, Oral, ONCE PRN, severe pain, Starting on Sun02/26/23 at 1442, For 1 dose, Max: 5 mg for opioid-na??ve patient. Use caution with patient Age GREATER than 65 years, COPD, or CrCl LESS than 50 mL/min., Phase ll oxyCODONE (ROXICODONE) tablet 5 mg 5 mg, Oral, ONCE PRN, moderate pain, Starting on Sun02/26/23 at 1442, For 1 dose, Max: 5 mg for opioid-na??ve patient., Phase ll oxyCODONE (ROXICODONE) tablet 5 mg 5 mg, Oral, ONCE PRN, other, pain control or improvement in physical function.??, Starting on Sun02/26/23 at 1442, For 1 dose, Notify provider to assess for uncontrolled pain or analgesic side effects. prochlorperazine (COMPAZINE) injection 5 mg 5 mg, Intravenous, EVERY 6 HOURS PRN, nausea, vomiting, Administer over 1-2 Minutes, Starting on Sun02/26/23 at 1442, Phase ll sodium chloride 0.9% (bottle) irrigation (CANCELED) PRN, Starting on Sun02/26/23 at 1349, Intra-procedure 1349 ($Given - Provi donna: Agatha Nieves DPM, Podiatry/Foot and Ankle Surgery) Linked Groups Order Group 1: ondansetron (ZOFRAN ODT) ODT tab 4 mgJump to med 4 mg, Oral, EVERY 30 MIN PRN, nausea, Starting on Sun02/26/23 at 1442, For 2 doses, MAX total dose = 8 mg, including OR dosing. If not resolved in 15 minutes, then go to step 2 [prochlorperazine (COMPAZINE), if ordered]. With dry hands, peel back foil backing and gently remove tablet. Do not push oral disintegrating tablet through foil backing. Administer immediately on tongue and oral disintegrating tablet dissolves in seconds, then swallow with saliva. Liquid not required., Phase ll Or ondansetron (ZOFRAN) injection 4 mgJump to med 4 mg, Intravenous, EVERY 30 MIN PRN, nausea, Administer over 2-5 Minutes, Starting on Sun02/26/23 at 1442, For 2 doses, MAX total dose = 8 mg, including OR dosing. If not resolved in 15 minutes, then go to step 2 [prochlorperazine (COMPAZINE), if ordered]. Irritant., Phase ll documented in this encounter Additional Health Concerns Assessment Noted Time PHQ-9 Depression Total Score: 7 11/11/19 21 1:31 PM CDT documented as of this encounter Care Teams Field Scout Relationship Specialty Start Date End Date Sudha Greene NP [address] [address] PCP - General 11/01/22 Noreen Flores APRN CANINE DEPUTY [address] [facility] [place] [address] Assigned PCP 08/05/22 03/16/23 Agatha Nieves DPM, Podiatry/Foot and Ankle Surgery [address] [place] [address] Assigned Musculoskeletal Provider 11/04/22 documented as of this encounter
--- OUTSIDE RECORDS SUMMARY | 2023-07-02 13:25 | XMS_ITS | Encounter Summary ---
Author Name Unknown Organization [facility] Address [address] [place] [address] Care Team Providers Care Measurement Superintendent Name Role Phone Noreen Flores APRN SECURITY STRATEGIST Unavailable Sudha Greene BROKERAGE COORDINATOR Primary Care Provider Agatha Null DPM, Podiatry /Foot and Ankle Surgery Unavailable Encounter Details Date Type Department Care Team (Late st Contact Info) Description 01/04/2023 [facility] [place] [facility] [address] [place] [address] Tony Orozco Social History Tobacco Use Types Packs/Day Years Used Date Smoking Tobacco: Never Passive Smoke Exposure: Never Smokeless Tobacco: Never Alcohol Use Standard Drinks/Week Comments Yes 0 (1 standard drink = 0.6 oz pur e alcohol) Rare Social Connection and Isolation Panel [NHANES] A nswer Date Recorded Frequency of Communication with Friends and Fami ly Three times a week 08/08/2019 Frequency of Social Gatherin gs with Friends and Family Patient declined 08/08/2019 Attends Worship Services Patient declined 07/13 Active Member of [...] Answer Date Recorded PHQ-2 Score 0 11/10/2020 [facility] [place] of Occupat ional Health - Occupational Stress [...] suspected to have Coronavirus/COVID-19? No / Unsure 01/04/2023 9:54 AM CDT documented as of this encounter Plan of Treatment Not on file documented as of this encounter Visit Diagnoses Not on filedocumented in this encounter Additional Health Concerns Assessment Noted Time PHQ-9 Depression Total Score: 7 11/11/19 21 1:31 PM CDT documented as of this encounter Care Teams Measurement Superintendent Relationship Specialty Start Date End Date Sudha Greene NP [facility] [address] [place] [address] PCP - General 11/01/22 Noreen Flores APRN SECURITY STRATEGIST [address] [facility] [place] [address] Assigned PCP 08/05/22 03/16/23 Agatha Null, MARÍA, Podiatry/Foot and Ankle Surgery [address] [address] Assigned Musculoskeletal Provider 11/04/22 documented as of this encounter
--- OUTSIDE RECORDS SUMMARY | 2023-07-02 13:25 | XMS_ITS | Encounter Summary ---
Author Name Unknown Organization [facility] Address [address] [place] [address] Care Team Providers Care Drill Punch Operator Name Role Phone Noreen Flores APRN BMET Unavailable Sudha Greene NP Primary Care Provider Agatha Null DPM, Podiatry /Foot and Ankle Surgery Unavailable Encounter Details Date Type Department Care Team (Latest Contact Info) Description 02/26/2023 Travel Social History Tobacco Use Types Packs/Day [...] Friends and Family Patient declined 08/08/2019 Attends Rastafari Services Patient declined 07/13 Active Member of [...] Answer Date Recorded PHQ-2 Score 0 11/10/2020 [facility] [place] of Occupat ional Health - Occupational Stress [...] documented as of this encounter Care Teams Drill Punch Operator Relationship Specialty Start Date End Date Sudha Greene NP [address] [address] PCP - General 11/01/22 Noreen Flores APRN CNP [address] [place] [address] [place] [address] Assigned PCP 08/05/22 03/16/23 Agatha Null DPM, Podiatry/Foot and Ankle Surgery [address] [place] [address] Assigned Musculoskeletal Provider 11/04/22 documented as of this encounter
--- OUTSIDE RECORDS SUMMARY | 2023-07-02 13:25 | XMS_ITS | Encounter Summary ---
Author Name Unknown Organization [facility] Address [address] [place] [address] Care Team Providers Care Molder Foam Rubber Name Role Phone Noreen Flores APRN DONOR SERVICES TECHNICIAN Unavailable Sudha Greene NP Primary Care Provider [phone] Agatha Null DPM, Podiatry /Foot and Ankle Surgery Unavailable Encounter Details Date Type Department Care Team (Late st Contact Info) Description 01/12/2023 [facility] Medical Advice [facility] [address] [place] [place] [address] Agatha Null DPM, Podiatry/Foot and Ankle Surgery [address] [place], [place] [id number] Chronic pain of right ankle (Primary Dx); Peroneal tendon tear, right, subsequent encounter Social History Tobacco Use Types Packs/Day [...] Friends and Family Patient declined 08/08/2019 Attends Spiritism Services Patient declined 07/13 Active Member of [...] Answer Date Recorded PHQ-2 Score 0 11/10/2020 [facility] [place] of Occupat ional Health - Occupational Stress [...] encounter Miscellaneous Notes * Telephone Encounter - Agatha Null DPM, Podiatry/Foot and Ankle Surgery - 01/12/2023 3:49 PM CDT Order signed for knee roller. Please let patient know. Thanks, Agatha Null DPM CDT * Telephone Encounter - Haily Gandhi ATC - 01/12/2023 2:44 PM CDT Patient requesting order for knee scooter be placed for upcoming surgery. Order pended for providerreview/ signature. Haily Gandhi MSA, ATC Network Operations Center Engineer documented in this encounter Plan of Treatment Not on file documented as of this encounter Visit Diagnoses Diagnosis Chronic pain of right ankle- Primary Peroneal tendon tear, right, subsequent encounter documented in this encounter Additional Health Concerns Assessment Noted Time PHQ-9 Depression Total Score: 7 11/11/19 21 1:31 PM CDT documented as of this encounter Care Teams Molder Foam Rubber Relationship Specialty Start Date End Date Sudha Greene NP [address] [address] PCP - General 11/01/22 Noreen Flores APRN DONOR SERVICES TECHNICIAN [address] [facility] [place] [address] Assigned PCP 08/05/22 03/16/23 Agatha Null DPM, Podiatry/Foot and Ankle Surgery [address] [place] [address] Assigned Musculoskeletal Provider 11/04/22 documented as of this encounter
--- OUTSIDE RECORDS SUMMARY | 2023-07-02 13:25 | XMS_ITS | Encounter Summary ---
Author Name Unknown Organization [facility] Address [address] [place] [address] Care Team Providers Care Uniform Maker Name Role Phone Noreen Flores APRN HEDGE FUND ACCOUNTANT Unavailable Sudha Greene NP Primary Care Provider Agatha Null DPM, Podiatry /Foot and Ankle Surgery Unavailable Reason for Referral * Medication Prior Authorization - Closed Specialty Diagnoses / Procedures Referred By Contac t Referred To Contact Diagnoses Post-operative state Agatha Null DPM, Podiatry/Foot and Ankle Surgery [address] [facility] [address] [place] [address] Referral ID Status Reason Start Date Expiration Date Visits Re quested Visits Authorized [id number] Closed 1 1 Reason for Visit * Reason Comments Post-op Visit Repair peroneal tend on, right ankle Encounter Details Date Type Department Care Team (Late st Contact Info) Description 03/06/2023 10:15 AM CDT Office Visit [facility] Podiatry [address] [place] [address] Agatha Null DPM, Podiatry/Foot and Ankle Surgery [address] [place], [place] [id number] Post-operative state (Primary Dx) Social History Tobacco [...] Answer Date Recorded PHQ-2 Score 0 11/10/2020 [facility] [place] of Occupat ional Health - Occupational Stress [...] Sign Reading Time Taken Comments Blood Pressure 142/90 03/06/2023 10:02 AM CDT Pulse - - Temperature - - Respiratory Rate - - Oxygen Saturation - - Inhaled Oxygen Concentration - - Weight 87.1 kg (192 lb) 03/06/2023 10:02 AM CDT Height - - Body Mass Index 35.79 02/26/2023 11:19 AM CDT documented in this encounter Patient Instructions * Patient Instructions* Dafne Guerrero MA - 03/06/2023 10:15 AM CDT Thank you for choosing [facility] Podiatry / Foot & Ankle Surgery! [facility]: [facility] [address] [place] [address] TRIAGE LINE: [phone] APPOINTMENTS: [phone] RADIOLOGY: [phone] SET UP SURGERY: [phone] PHYSICAL THERAPY: [phone] FAX NUMBER: [phone] BILLING QUESTIONS: [phone] Follow up: 1 week documented in this encounter Progress Notes * Agatha Null DPM, Podiatry/Foot and Ankle Surgery - 03/06/2023 10:15 AM CDT Podiatry / Foot and Ankle Surgery Progress Note March 06, 2023 Subject: Patient was seen for 1 week status post right peroneal tendon repair. Denies fever, nausea, vomiting. Notes that its been sore. She notes that she has fell a few times and has bumped it. Notes that the oxycodone does not appear to be helping as much with the pain. Wondering if she can get anything else for it. Objective: Vitals: BP (!) 142/90 Wt 87.1 kg (192 lb) LMP 10/30/2011 [...] noted. Assessment: Post-operative state Medical Decision Making/Plan: Dressing was changed today. We will have her continue to be nonweightbearing and keep the foot dressing dry. We will have her follow-up in 1 week for suture removal. Putin a refill for [place] for pain as she states the oxycodone was not helping as much. All questions were answered to patient's satisfaction [...] as of this encounter Care Teams Uniform Maker Relationship Specialty Start Date End Date Sudha Greene NP [address] [address] PCP - General 11/01/22 Noreen Flores APRN CNP [address] [facility] [place] [address] Assigned PCP 08/05/22 03/16/23 Agatha Null, MARÍA, Podiatry/Foot and Ankle Surgery [address] [place] [address] Assigned Musculoskeletal Provider 11/04/22 documented as of this encounter
--- OUTSIDE RECORDS SUMMARY | 2023-07-02 13:25 | XMS_ITS | Encounter Summary ---
Author Name Unknown Organization [facility] Address [address] [place] [address] Care Team Providers Care Marine Mechanic Name Role Phone Noreen Flores APRN BALANCE STAFF STAKER Unavailable Sudha Greene JET PILOT Primary Care Provider [phone] Agatha Null DPM, Podiatry /Foot and Ankle Surgery Unavailable Encounter Details Date Type Department Care Team (Latest Contact Info) Description 01/04/2023 Travel Social History Tobacco Use Types Packs/Day [...] Answer Date Recorded PHQ-2 Score 0 11/10/2020 [facility] [place] of Occupat ional Health - Occupational Stress [...] documented as of this encounter Care Teams Marine Mechanic Relationship Specialty Start Date End Date Sudha Greene NP [address] [address] PCP - General 11/01/22 Noreen Flores APRN CNP [address] [place] [address] [place] [address] Assigned PCP 08/05/22 03/16/23 Agatha Null DPM, Podiatry/Foot and Ankle Surgery [address] [place] [address] Assigned Musculoskeletal Provider 11/04/22 documented as of this encounter
--- OUTSIDE RECORDS SUMMARY | 2023-07-02 13:25 | XMS_ITS | Encounter Summary ---
Author Name Unknown Organization [facility] Address [address] [place] [address] Care Team Providers Care Track Oiler Name Role Phone Noreen Flores APRN CARPENTER LABOR SUPERVISOR Unavailable Sudha Greene NP Primary Care Provider Agatha Null DPM, Podiatry /Foot and Ankle Surgery Unavailable Encounter Details Date Type Department Care Team (Late st Contact Info) Description 01/13/2023 MyC Medical Advice [facility] Podiatry [address] [place] [address] [place] [address] Agatha Null DPM, Podiatry/Foot and Ankle Surgery [address] [place], [place] [id number] Social History Tobacco Use Types Packs/Day Years [...] Friends and Family Patient declined 08/08/2019 Attends Jewish Services Patient declined 07/13 Active Member of [...] Answer Date Recorded PHQ-2 Score 0 11/10/2020 [facility] [place] of Occupat ional Health - Occupational Stress [...] encounter Miscellaneous Notes * Telephone Encounter - Selma Gonzalez ATC - 01/22/2023 11:26 AM CDT Patient presented to clinic today 01/22/23 and picked up [employer] parking form, Rx for knee scooter and surgical soap. Selma Gonzalez MBA, ATC * Telephone Encounter - Jacquelyn Guerra ATC - 01/16/2023 9:28 AM CDT Please see MyC message. Upon chart review, it was noted that patient is not to be driving in their boot after their surgery. Should I relay this information or are you okay with patient receiving a parking permit application? Jacquelyn Guerra ATC documented in this encounter Plan of Treatment Not on file documented as of this encounter Visit Diagnoses Not on filedocumented in this encounter Additional Health Concerns Assessment Noted Time PHQ-9 Depression Total Score: 7 11/11/19 21 1:31 PM CDT documented as of this encounter Care Teams Track Oiler Relationship Specialty Start Date End Date Sudha Greene NP [address] [address] PCP - General 11/01/22 Noreen Flores APRN CARPENTER LABOR SUPERVISOR [address] [facility] [place] [address] Assigned PCP 08/05/22 03/16/23 Agatha Null DPM, Podiatry/Foot and Ankle Surgery [address] [place] [address] Assigned Musculoskeletal Provider 11/04/22 documented as of this encounter
--- OUTSIDE RECORDS SUMMARY | 2023-07-02 13:25 | XMS_ITS | Encounter Summary ---
Author Name Unknown Organization [facility] Address [address] [place] [address] Care Team Providers Care Youth Development Professional Name Role Phone Noreen Flores APRN HYDROGRAPHIC ENGINEER Unavailable Sudha Greene PULL WORKER Primary Care Provider [phone] Agatha Null DPM, Podiatry /Foot and Ankle Surgery Unavailable Reason for Visit * Auth/Cert (Routine) Specialty Diagnoses / Procedures Referred By Rylie garcia Referred To Contact Surgery Diagnoses Right foot pain Peroneal tendonitis, right Right foot pain [M79.671] Peroneal tendonitis, right [M76.71] Procedures PA REPAIR FLEX LEG TENDON,PRIM,EA PA REPAIR FLEX LEG TENDON,SECOND,EA PA REPAIR PERONEAL TENDONS PA REPAIR PERONEAL TENDONS,FIB OSTEOTMY Repair peroneal tendon, right ankle [facility] [address] [place] [address] Referral ID Status Reason Start Date Expiration Date Visits Re quested Visits Authorized [id number] 1 1 Encounter Details Date Type Department Care Team (Late st Contact Info) Description 02/26/2023 12:56 PM CDT Anesthesia Event [facility] [address] [place] [address] Marco Panda MD [facility] ANESTHESIA [id number] [place], [place] [id number] Tima Xiong APRN MARKETING AREA MANAGER [facility] ANESTHESIA [place] [address] [facility] [place] [id number] Anesthesia Record Procedure Summary Procedure Name Responsible Anesthesiologist Anesthesia Start Time Anesthesia Stop Time Repair peroneal tendon, right ankle (Right: Ankle) Marco Panda MD 02/26/23 1256 02/26/23 1409 Events Date Time Event Comment 02/26/2023 1238 MARKETING AREA MANAGER Ready for Procedure 1256 An Start 1300 An Start Data 1300 AN REASSESS I attest that I have identified and re-evaluated the patient immediately before the induction of anesthesia and I am satisfied that the anesthetic plan is suitable for the patient's condition and procedure. The first vital signs recorded are pre- induction. Ronald Franz APRN MARKETING AREA MANAGER 1305 An Induction 1305 An Intubation 1305 MD Present 1310 Anesthesia Ready for Procedu re 1310 MD Present 1336 MD Present 1356 Quick Note Reversal medica tion, suctioned, strong grasp, opens eyes to commands, extubated awake. Oxygen per face mask to PACU. 1400 AN Extubation All extubation criteria met prior to removal. 1402 an stop data 1404 MD Present 1409 An Stop Electronically signed by Remberto Cochran APRN MARKETING AREA MANAGER on February 26, 2023 2:08 PM 1417 Meds Name Total midazolam 1 mg/mL 2 mg fentaNYL 50 mcg/mL 100 mcg ketorolac 30 mg/mL 15 mg lidocaine 2% 50 mg propofol 10 mg/mL 120 mg rocuronium 10 mg/mL 50 mg dexamethasone (DECADRON) 4 mg/mL 8 mg ondansetron 2 mg/mL 4 mg glycopyrrolate 0.2 mg/mL 0.8 mg neostigmine 1 mg/mL 4 mg bupivacaine 0.5% /EPI 1:200,000 30 mL ceFAZolin Sodium (ANCEF) injection 2 g 2 g LR 900 mL * Agents Name NO HELIOX O2 N2O Air Exp Sevoflurane Exp Isoflurane Exp Desflurane Exp N2O Ins Sevoflurane Ins Isoflurane Ins Desflurane O2 Auxiliary * Blood No blood administrations on file. Lines, Drains, and Airways Type Details Placement Removal Incision/Surgical Site 02/26/23; 1350; R ight; Ankle; adaptic, 4x4, kerlix, pedro 02/26/23 1350 by Emir Blackwood RN Peripheral IV 02/26/23; 1230; 20 G ; Anterior, Distal, Right; Lower forearm; Tolerated well 02/26/23 1230 by Lazara Jacobsen, RERE 02/26/23 1602 by Radha Lawton RN ETT Placement Date: 02/26/23; Placement Time: 1305 (created via procedure documentation); Mask Ventilation: 1; Induction Type: Intravenous; Ease of Intubation: Easy; Technique: Direct laryngoscopy; ETT Type: Single, Oral; Tube Size: 7 mm; DL Blade Size: Andrea 2; Grade View: 1; Adjucts: Stylet; Placement Person: MARKETING AREA MANAGER; Attempts: 1; Depth: 22 cm 02/26/23 1305 by Ronald Franz APRN MARKETING AREA MANAGER 02/26/23 1400 by Remberto Cochran APRN CRNA documented in this encounter Social History Tobacco [...] Answer Date Recorded PHQ-2 Score 0 11/10/2020 [facility] [place] Occupat [facility] - Occupational Stress [...] AM CDT documented as of this encounter OR Notes * Anesthesia Postprocedure Evaluation - Marco Panda MD - 02/26/2023 2:19 PM CDT Patient: Megan Choi Procedure: Procedure(s): Repair peroneal tendon, right ankle Anesthesia Type: General Note: Disposition: Outpatient Postop Pain Control: Uneventful Sign Out: Well controlled pain PONV: No Neuro/Psych: Uneventful Sign Out: Acceptable/Baseline neuro status Airway/Respiratory: Uneventful Sign Out: Acceptable/Baseline resp. status CV/Hemodynamics: Uneventful Sign Out: Acceptable CV status Other NRE: NONE DID A NON-ROUTINE EVENT OCCUR? No Last vitals: Vitals Value Taken Time BP 138/62 02/26/23 1415 Temp Pulse 96 02/26/23 1418 Resp 18 02/26/23 1418 SpO2 99 % 02/26/23 1418 Vitals shown include unvalidated device data. Electronically Signed By: Marco Panda MD February 26, 2023 2:19 PM * Anesthesia Procedure Notes - Marco Panda MD - 02/26/2023 2:18 PM CDTAssociated Order(s): Peripheral/Paravertebral Block Sciatic Procedure Note Pre-Procedure Staff - Anesthesiologist: Marco Panda MD Performed By: anesthesiologist Referred By: mo Location: pre-op Pre-Anesthestic Checklist: patient identified, IV checked, site marked, risks and benefits discussed, informed consent, monitors and equipment checked, pre-op evaluation, at physician/surgeon's request and post-op pain management Timeout: Correct Patient: Yes Correct Procedure: Yes Correct Site: Yes Correct Position: Yes Correct Laterality: Yes Site Marked: Yes Procedure Documentation Procedure: Sciatic Diagnosis: ARTHRITIS Laterality: right Patient Position: LLD Patient Prep/Sterile Barriers: sterile gloves, mask Skin prep: Chloraprep Local skin infiltrated with 3 mL of 2% lidocaine. (popliteal approach). Needle Type: insulated and short bevel Needle Gauge: 21. Needle Length (Inches): 4 Ultrasound guided 1. Ultrasound was used to identify targeted nerve, plexus, vascular marker, or fascial plane and place a needle adjacent to it in real-time. 2. Ultrasound was used to visualize the spread of anesthetic in close proximity to the above referenced structure. 4. The visualized anatomic structures appeared normal. 5. There were no apparent abnormal pathologic findings. Assessment/Narrative The placement was negative for: blood aspirated, painful injection and site bleeding Paresthesias: No. Bolus given via needle. no blood aspirated via catheter. Secured via. Insertion/Infusion Method: Single Shot Complications: none Injection made incrementally with aspirations every 5 mL. Comments: Good LA spread around the sciatic nerve just proximal to bifurcation FOR [facility] ([facility]) ONLY: Pain Team Contact information: please page the Pain Team Via [employer]Search Pain. During daytime hours, please page the attending first. At night please page the resident first. * Anesthesia Procedure Notes - Ronald Franz APRN CRNA - 02/26/2023 1:11 PM CDTAssociated Order(s): Airway Airway Patient location during procedure: OR Procedure Start/Stop Times: 02/26/2023 1:05 PM Staff - MARKETING AREA MANAGER: Ronald Franz APRN MARKETING AREA MANAGER Performed By: MARKETING AREA MANAGER Consent for Airway Urgency: elective Indications and Patient Condition Indications for airway management: trell-procedural Induction type:intravenous Mask difficulty assessment: 1 - vent by mask Final Airway Details Final airway type: endotracheal airway Successful airway: ETT - single and Oral Endotracheal Airway Details ETT size (mm): 7.0 Cuffed: yes Successful intubation technique: direct laryngoscopy DL Blade Type: Andrea 2 Grade View of Cords: 1 Adjucts: stylet Position: Right Measured from: gums/teeth Secured at (cm): 22 Bite block used: None Post intubation assessment Placement verified by: capnometry, equal breath sounds and chest rise Number of attempts at approach: 1 Number of other approaches attempted: 0 Secured with: plastic tape Ease of procedure: easy Medication(s) Administered Medication Administration Time: 02/26/2023 1:05 PM * Anesthesia Preprocedure Evaluation - Marco Panda MD - 02/26/2023 12:01 PM CDT Anesthesia Pre-Procedure Evaluation Patient: Megan Choi : 1965 Procedure : Procedure(s): Repair peroneal tendon, right ankle Past Medical History: Diagnosis Date Aftercare following surgery of the musculoskeletal system 07/03/2016 Arthritis Diabetes mellitus (H) Type 2 Dvt femoral (deep venous thrombosis) (H) 04/2007 post surgical, stopped coumadin 01/16 Gastroesophageal reflux disease History of angina IFG (impaired fasting glucose) 10/03/2015 Other chronic pain Fibromyalgia - bilateral thighs, back Sleep apnea Thrombosis Left leg 2000 after neck surgery Past Surgical History: Procedure Laterality Date SECTION ENT SURGERY T&A < 10 y/o RELEASE TRIGGER FINGER Right 02/09/2020 Right trigger thumb release at A1 Dr. Rios estevez, [facility] REPAIR TENDON PERONEAL Left 06/08/2016 Procedure: REPAIR TENDON PERONEAL; Surgeon: Agatha Null, DPM, Pod; Location: OR [facility] SPINAL FUSION,ANT,EA ADNL LEVEL 2004 L5, S1, Repeated in 2006 [facility] SPINAL FUSION,ANT,EA ADNL LEVEL 2007 SI joints [facility] SPINAL FUSION,ANT,EA ADNL LEVEL 2001 C5-C7 fused Allergies Allergen Reactions Erythromycin Hives Azithromycin Other (See Comments) Erythromycin Rash As a child Social History Tobacco Use Smoking status: Never Passive exposure: Never Smokeless tobacco: Never Substance Use Topics Alcohol use: Yes Comment: Rarely Wt Readings from Last 1 Encounters: 02/26/23 86.8 kg (191 lb 4.8 oz) Anesthesia Evaluation ROS/MED HX ENT/Pulmonary: (+) sleep apnea, Neurologic: - neg neurologic ROS Cardiovascular: - neg cardiovascular ROS METS/Exercise Tolerance: Hematologic: (+) History of blood clots, pt is not anticoagulated, Musculoskeletal: (+) arthritis, GI/Hepatic: (+) GERD, Asymptomatic on medication, Renal/Genitourinary: - neg Renal ROS Endo: (+) type II DM, Obesity, Psychiatric/Substance Use: - neg psychiatric ROS Infectious Disease: - neg infectious disease ROS Malignancy: Other: (+) , H/O Chronic Pain, Physical Exam Airway Mallampati: II TM distance: > 3 FB Neck ROM: full Mouth opening: > 3 cm Respiratory Devices and Support Dental (+) Minor Abnormalities - some fillings, tiny chips Cardiovascular Rhythm and rate: regular and normal Pulmonary breath sounds clear to auscultation OUTSIDE LABS: CBC: Lab Results Component Value Date WBC 5.5 11/10/2020 WBC 7.2 11/06/2019 HGB 13.1 11/10/2020 HGB 14.8 11/06/2019 HCT 40.7 11/10/2020 HCT 45.7 11/06/2019 PLT 239 11/10/2020 PLT 259 11/06/2019 BMP: Lab Results Component Value Date NA 142 11/10/2020 NA 140 11/06/2019 POTASSIUM 4.0 11/10/2020 POTASSIUM 3.5 11/06/2019 CHLORIDE 112 (H) 11/10/2020 CHLORIDE 107 11/06/2019 CO2 27 11/10/2020 CO2 28 11/06/2019 BUN 14 11/10/2020 BUN 17 11/06/2019 CR 0.74 11/10/2020 CR 0.82 11/06/2019 GLC 125 (H) 02/26/2023 GLC 96 11/10/2020 COAGS: Lab Results Component Value Date PTT 27 01/12/2010 POC: Lab Results Component Value Date BGM 159 (H) 06/08/2016 HEPATIC: Lab Results Component Value Date ALBUMIN 3.6 11/10/2020 PROTTOTAL 7.2 11/10/2020 ALT 23 11/10/2020 AST 16 11/10/2020 GGT 67 (H) 02/17/2017 ALKPHOS 143 11/10/2020 BILITOTAL 0.6 11/10/2020 OTHER: Lab Results Component Value Date A1C 6.1 (H) 01/13/2020 CHELSEA 9.3 11/10/2020 LIPASE 66 (L) 11/06/2019 TSH 1.80 09/25/2016 T4 1.01 09/30/2015 CRP <2.9 11/10/2020 SED 40 (H) 11/10/2020 Anesthesia Plan ASA Status: 2 NPO Status: NPO Appropriate Anesthesia Type: General. - Airway: LMA Induction: Intravenous. Maintenance: Balanced. Techniques and Equipment: - Drips/Meds: Dexmed. infusion Consents Anesthesia Plan(s) and associated risks, benefits, and realistic alternatives discussed. Questions answered and patient/outside sales representative insurance(s) expressed understanding. - Discussed: - Discussed with: Patient - Extended Intubation/Ventilatory Support Discussed: No. - Patient is DNR/DNI Status: No Use of blood products discussed: No . Postoperative Care Pain management: IV analgesics, Oral pain medications, Multi-modal analgesia, Peripheral nerve block (Single Shot). PONV prophylaxis: Ondansetron (or other 5HT-3), Dexamethasone or Solumedrol Comments: Other Comments: The surgeon has given a verbal order transferring care of this patient to me for the performance of a regional analgesia block for post-op pain control. It is requested of me because I am uniquely trained and qualified to perform this block and the surgeon is neither trained nor qualified to perform this procedure. Ultrasound guided peripheral nerve block(s) discussed. The patient was informed that undergoing theblock is not required for surgery to proceed and is optional, but they can be beneficial in reducing post operative pain medication requirements for a period of time (several hours to a few days). Block rationale, procedure, expected results, and block specific side effects reviewed with the patient. Risks, including but not limited to bleeding, infection, nerve damage/damage to surrounding structures, medication adverse/allergic reactions, and block failure discussed. Questions encouraged and answered. The patient wishes to proceed. Marco Panda MD documented in this encounter Miscellaneous Notes * Anesthesia Care Transfer Note - Remberto Cochran APRN CRNA - 02/26/2023 2:08 PM CDT Patient: Megan Choi Procedure: Procedure(s): Repair peroneal tendon, right ankle Diagnosis: Right foot pain [M79.671] Peroneal tendonitis, right [M76.71] Diagnosis Additional Information: No value filed. Anesthesia Type: General Note: Oropharynx: spontaneously breathing Level of Consciousness: awake Oxygen Supplementation: face mask Dentition: dentition unchanged Vital Signs Stable: post-procedure vital signs reviewed and stable Report to RN Given: handoff report given Patient transferred to: PACU Comments: To PACU, oxygen per face mask, report to RN. Vitals: Vitals Value Taken Time BP 137/73 02/26/23 1405 Temp Pulse 105 02/26/23 1407 Resp 14 02/26/23 1407 SpO2 100 % 02/26/23 1407 Vitals shown include unvalidated device data. Electronically Signed By: Remberto Cochran APRN CRNA February 26, 2023 2:08 PM documented in this encounter Plan of Treatment Not on file documented as of this encounter Procedures Procedure Name Priority Date/Time Associated Diagnosis Comments ANE PERIPHERAL/PARAVETEB RAL BLOCK Routine 02/26/2023 2:18 PM CDT ANE AIRWAY ETT PERFORMABLE Routine 02/26/2023 1:05 PM CDT documented in this encounter Results * Peripheral/Paravertebral Block (02/26/2023 2:18 PM CDT) Narrative Marco Panda MD - 02/26/2023 2:18 PM CDT Marco Panda MD ? 02/26/2023 ??2:19 PM Sciatic Procedure Note Pre-Procedure Staff - ? Anesthesiologist: ??Marco Panda MD ? Performed By: anesthesiologist ? Referred By: mo ? Location: pre-op ? Pre-Anesthestic Checklist: patient identified, IV checked, site marked, risks and benefits discussed, informed consent, monitors and equipment checked, pre-op evaluation, at physician/surgeon's request and post-op pain management Timeout: ? Correct Patient: Yes ? Correct Procedure: Yes ? Correct Site: Yes ? Correct Position: Yes ? Correct Laterality: Yes ? Site Marked: Yes Procedure Documentation Procedure: Sciatic ? Diagnosis: ARTHRITIS ? Laterality: right ? Patient Position: LLD ? Patient Prep/Sterile Barriers: sterile gloves, mask ? Skin prep: Chloraprep ? Local skin infiltrated with 3 mL of 2% lidocaine. ??(popliteal approach). ? Needle Type: insulated and short bevel ? Needle Gauge: 21. ? Needle Length (Inches): 4 ? Ultrasound guided ? 1. Ultrasound was used to identify targeted nerve, plexus, vascular marker, or fascial plane and place a needle adjacent to it in real-time. ? 2. Ultrasound was used to visualize the spread of anesthetic in close proximity to the above referenced structure. ? 4. The visualized anatomic structures appeared normal. ? 5. There were no apparent abnormal pathologic findings. Assessment/Narrative ? The placement was negative for: blood aspirated, painful injection and site bleeding ? Paresthesias: No. ? Bolus given via needle. no blood aspirated via catheter. ? Secured via. ? Insertion/Infusion Method: Single Shot ? Complications: none ? Injection made incrementally with aspirations every 5 mL. Comments: ??Good LA spread around the sciatic nerve just proximal to bifurcation FOR [facility] ([facility]) ONLY: ?? Pain Team Contact information: please page the Pain Team Via [employer]. Search Pain. During daytime hours, please page the attending first. At night please page the resident first. Marco Panda MD PA ANESTHESIA * ANE AIRWAY ETT PERFORMABLE (02/26/2023 1:05 PM CDT) Narrative Ronald Franz APRN MARKETING AREA MANAGER - 02/26/2023 1:05 PM CDT Ronald Franz APRN MARKETING AREA MANAGER ? 02/26/2023 ??1:12 PM Airway ? Patient location during procedure: OR ? Procedure Start/Stop Times: 02/26/2023 1:05 PM Staff - ? MARKETING AREA MANAGER: Ronald Franz APRN CRNA ? Performed By: MARKETING AREA MANAGER Consent for Airway ? Urgency: elective Indications and Patient Condition ? Indications for airway management: trell-procedural ? Induction type:intravenous ? Mask difficulty assessment: 1 - vent by mask Final Airway Details ? Final airway type: endotracheal airway ? Successful airway: ETT - single and Oral Endotracheal Airway Details ? ETT size (mm): 7.0 ? Cuffed: yes ? Successful intubation technique: direct laryngoscopy ? DL Blade Type: Andrea 2 ? Grade View of Cords: 1 ? Adjucts: stylet ? Position: Right ? Measured from: gums/teeth ? Secured at (cm): 22 ? Bite block used: None Post intubation assessment ? Placement verified by: capnometry, equal breath sounds and chest rise ? Number of attempts at approach: 1 ? Number of other approaches attempted: 0 ? Secured with: plastic tape ? Ease of procedure: easy Medication(s) Administered Medication Administration Time: 02/26/2023 1:05 PM Marco Panda MD PA ANESTHESIA documented in this encounter Visit Diagnoses Not on filedocumented in this encounter Administered Medications Inactive Administered Medications - up to 3 most recent administrations Medication Order MAR Action Action Date Dose Rate Site BUPivacaine 0.5 % - EPINEPHrine 1:200,000 injection Infiltration, PRN, Starting on 02/26/23 at 1251, Anesthesia Intra-op $Given 02/26/2023 12:51 PM CDT 30 mLs ceFAZolin Sodium (ANCEF) injection 2 g Routine, 2 g, Intravenous, PRE-OP/PRE-PROCEDURE, Starting on Sun02/26/23 at 1123, For 1 dose, Give first dose within 1 hour PRIOR to incision. If patient weight is greater than or equal to 120 kg increase dose to 3 g., Indications: Perioperative Pharmacoprophylaxis, Pre-procedure $Given 02/26/2023 12:56 PM CDT 2 g dexAMETHasone (DECADRON) injection Intravenous, PRN, Administer over 1 Minutes, Starting on Sun02/26/23 at 1305, Anesthesia Intra-op $Given 02/26/2023 1:05 PM CDT 8 mg fentaNYL (PF) (SUBLIMAZE) injection Intravenous, PRN, Administer over 3-5 Minutes, Starting on Sun02/26/23 at 1305, Anesthesia Intra-op $Given 02/26/2023 1:05 PM CDT 100 mcg glycopyrrolate (ROBINUL) injection Intravenous, PRN, Administer over 1-2 Minutes, Starting on Sun02/26/23 at 1355, Anesthesia Intra-op $Given 02/26/2023 1:55 PM CDT 0.8 mg ketorolac (TORADOL) injection Intravenous, PRN, Administer over 2 Minutes, Starting on Sun02/26/23 at 1305, Anesthesia Intra-op $Given 02/26/2023 1:05 PM CDT 15 mg lactated ringers infusion Intravenous, CONTINUOUS PRN, Anesthesia Intra-op, Starting on Sun02/26/23 at 1255, Until Sun02/26/23 at 1409 $New Bag 02/26/2023 12:55 PM CDT lidocaine 2% injection (MDV) Intravenous, PRN, Starting on Sun02/26/23 at 1305, Anesthesia Intra-op $Given 02/26/2023 1:05 PM CDT 50 mg midazolam (VERSED) injection Intravenous, Administer over 2 Minutes, PRN, Starting on Sun02/26/23 at 1253, Anesthesia Intra-op $Given 02/26/2023 12:53 PM CDT 2 mg neostigmine (PROSTIGMINE) injection Intravenous, PRN, Starting on Sun02/26/23 at 1355, Anesthesia Intra-op $Given 02/26/2023 1:55 PM CDT 4 mg ondansetron (ZOFRAN) injection Intravenous, PRN, Administer over 2-5 Minutes, Starting on Sun02/26/23 at 1305, Anesthesia Intra-op $Given 02/26/2023 1:05 PM CDT 4 mg propofol (DIPRIVAN) injection 10 mg/mL vial Intravenous, PRN, Starting on Sun02/26/23 at 1305, Anesthesia Intra-op $Given 02/26/2023 1:05 PM CDT 120 mg rocuronium injection Intravenous, PRN, Starting on Sun02/26/23 at 1305, Anesthesia Intra-op $Given 02/26/2023 1:05 PM CDT 50 mg documented in this encounter Additional Health Concerns Assessment Noted Time PHQ-9 Depression Total Score: 7 11/11/19 21 1:31 PM CDT documented as of this encounter Care Teams Youth Development Professional Relationship Specialty Start Date End Date Sudha Greene NP [address] [address] PCP - General 11/01/22 Noreen Flores APRN HYDROGRAPHIC ENGINEER [address] [facility] [place] [address] Assigned PCP 08/05/22 03/16/23 Agatha Null, DPM, Podiatry/Foot and Ankle Surgery [address] [place] [address] Assigned Musculoskeletal Provider 11/04/22 documented as of this encounter
--- OUTSIDE RECORDS SUMMARY | 2023-07-02 13:25 | XMS_ITS | Encounter Summary ---
Author Name Unknown Organization [place] Address [address] [place] [address] Care Team Providers Care Search Engine Optimization Manager Name Role Phone Noreen Flores APRN BATTER MIXER Unavailable Sudha Greene INTERNET APPLICATION DEVELOPER Primary Care Provider Agatha Null DPM, Podiatry /Foot and Ankle Surgery Unavailable Encounter Details Date Type Department Care Team (Latest Contact Info) Description 02/19/2023 Travel Social History Tobacco Use Types Packs/Day [...] Friends and Family Patient declined 08/08/2019 Attends [employer] Patient declined 07/13 Active Member of [...] Answer Date Recorded PHQ-2 Score 0 11/10/2020 [facility] of Occupat ional Health - Occupational Stress [...] suspected to have Coronavirus/COVID-19? No / Unsure 02/19/2023 12:57 PM CDT documented as of this encounter Plan of Treatment Not on file documented as of this encounter Visit Diagnoses Not on filedocumented in this encounter Additional Health Concerns Assessment Noted Time PHQ-9 Depression Total Score: 7 11/11/19 21 1:31 PM CDT documented as of this encounter Care Teams Search Engine Optimization Manager Relationship Specialty Start Date End Date Sudha Greene NP [address] [address] PCP - General 11/01/22 Noreen Flores APRN CNP [address] [place] [address] [place] [address] Assigned PCP 08/05/22 03/16/23 Agatha Null DPM, Podiatry/Foot and Ankle Surgery [address] [place] [address] Assigned Musculoskeletal Provider 11/04/22 documented as of this encounter
--- OUTSIDE RECORDS SUMMARY | 2023-07-02 13:25 | XMS_ITS | Encounter Summary ---
Author Name Unknown Organization [place] Address [address] [place] [address] Care Team Providers Care Screw Remover Name Role Phone Noreen Flores APRN INCISING MACHINE OPERATOR Unavailable Sudha Greene NP Primary Care Provider Agatha Null DPM, Podiatry /Foot and Ankle Surgery Unavailable Reason for Visit * Reason Onset Date Comments Forms 02/02/2023 Encounter Details Date Type Department Care Team (Late st Contact Info) Description 02/02/2023 [facility] [address] [place] [address] Agatha Null DPM, Podiatry/Foot and Ankle Surgery [address] [place] [address] Forms Social History Tobacco Use Types Packs/Day Years [...] Friends and Family Patient declined 08/08/2019 Attends Taoism Services Patient declined 07/13 Active Member of [...] Answer Date Recorded PHQ-2 Score 0 11/10/2020 [facility] [place] of Occupat ional Health - Occupational Stress [...] encounter Miscellaneous Notes * Telephone Encounter - Sheeba Huston - 02/23/2023 11:44 AM CDT [facility] Phone Message May a detailed message be left on voicemail: yes Reason for Call: Other: patient calling to make sure that pre op that was faxed for received. Action Taken: Other: message sent to team Travel Screening: Not Applicable documented in this encounter Plan of Treatment Not on file documented as of this encounter Visit Diagnoses Not on filedocumented in this encounter Additional Health Concerns Assessment Noted Time PHQ-9 Depression Total Score: 7 11/11/19 21 1:31 PM CDT documented as of this encounter Care Teams Screw Remover Relationship Specialty Start Date End Date Sudha Greene NP [address] [address] PCP - General 11/01/22 Noreen Flores APRN INCISING MACHINE OPERATOR [address] [facility] [place] [address] Assigned PCP 08/05/22 03/16/23 Agatha Null, DPM, Podiatry/Foot and Ankle Surgery [address] [place] [address] Assigned Musculoskeletal Provider 11/04/22 documented as of this encounter
--- OUTSIDE RECORDS SUMMARY | 2023-07-02 13:25 | XMS_ITS | Encounter Summary ---
Author Name Unknown Organization [place] Address [address] [place] [address] Care Team Providers Care Erecting Crane Operator Name Role Phone Noreen Flores APRN CREW TRUCK DRIVER Unavailable Sudha Greene NP Primary Care Provider Agatha Null DPM, Podiatry /Foot and Ankle Surgery Unavailable Reason for Visit * Reason Onset Date Comments Schedule Surgery 01/04/2023 Encounter Details Date Type Department Care Team (Late st Contact Info) Description 01/04/2023 Telephone [facility] Podiatry [address] [place] [address] [place] [address] Agatha Null DPM, Podiatry/Foot and Ankle Surgery [address] [place] [address] Schedule Surgery Social History Tobacco Use Types Packs/Day Years [...] Answer Date Recorded PHQ-2 Score 0 11/10/2020 [facility] [place] of Occupat ional Health - Occupational Stress [...] PM CDT documented as of this encounter Miscellaneous Notes * Telephone Encounter - Tony Orozco - 01/04/2023 1:14 PM CDT Patient has been scheduled for surgery. Details are below. Date of Surgery: 02/26/23 Approximate Arrival Time: 1045am Surgeon: Dr. Agatha Null Procedure: REPAIR, TENDON, PERONEAL right ankle (Right) Location: [facility], [address] [place], [place] [address] [address] Surgery Consult: was seen with in 2 months PreOp Physical: patient is calling to schedule PostOp: 03/06 & 03/13 Packet Mailed/MyChart Sent: yes Added to Alexis: yes documented in this encounter Plan of Treatment Not on file documented as of this encounter Visit Diagnoses Not on filedocumented in this encounter Additional Health Concerns Assessment Noted Time PHQ-9 Depression Total Score: 7 11/11/19 21 1:31 PM CDT documented as of this encounter Care Teams Erecting Crane Operator Relationship Specialty Start Date End Date Sudha Greene NP [address] [address] PCP - General 11/01/22 Noreen Flores APRN CREW TRUCK DRIVER [address] [facility] [place] [address] Assigned PCP 08/05/22 03/16/23 Agatha Null DPM, Podiatry/Foot and Ankle Surgery [address] [place] [address] Assigned Musculoskeletal Provider 11/04/22 documented as of this encounter
--- OUTSIDE RECORDS SUMMARY | 2023-07-02 13:25 | XMS_ITS | Encounter Summary ---
Author Name Unknown Organization [place] Address [address] [place] [address] Care Team Providers Care Criminal Defense Attorney Name Role Phone Noreen Flores APRN CONSERVATION TECHNICIAN Unavailable Sudha Greene NP Primary Care Provider Agatha Null DPM, Podiatry /Foot and Ankle Surgery Unavailable Reason for Visit * Reason Onset Date Comments Forms 01/22/2023 Encounter Details Date Type Department Care Team (Late st Contact Info) Description 01/22/2023 Telephone [facility] Podiatry [address] [place] [address] Agatha Null DPM, Podiatry/Foot and Ankle Surgery [address] [place] [address] Forms Social History Tobacco Use [...] Friends and Family Patient declined 08/08/2019 Attends Congregation Services Patient declined 07/13 Active Member of [...] Answer Date Recorded PHQ-2 Score 0 11/10/2020 [facility] [place] of Occupat ional Health - Occupational Stress [...] Null DPM, Podiatry/Foot and Ankle Surgery - 01/23/2023 8:03 AM CDT Signed form and faxed back. Agatha Null DPM CDT * Telephone Encounter - Jacquelyn Guerra ATC - 01/22/2023 12:00 PM CDT Patient forms are filled and ready to be signed and faxed. Placed in provider's basket on 01/22/23. Jacquelyn Guerra ATC * Telephone Encounter - Jacquelyn Guerra ATC - 01/22/2023 11:37 AM CDT Reason for Call: Form, our goal is to have forms completed with 7 days, however, some forms may require a visit or additional information. Type of letter, form or note: short term disability Who is the form from?: Patient Where did the form come from: Patient or family brought in Phone number of person requesting form: [phone] Can we leave a detailed message on this number: YES Desired completion date of form: bouchra How will form be returned?: fax to Cara at [phone] Has the patient signed a consent form for release of information (may be included with form)? Not Applicable Additional comments: Form was started and place in Provider Basket for provider review/ completion at [facility] Podiatry on 01/22/23. Jacquelyn Guerra ATC documented in this encounter Plan of Treatment Not on file documented as of this encounter Visit Diagnoses Not on filedocumented in this encounter Additional Health Concerns Assessment Noted Time PHQ-9 Depression Total Score: 7 11/11/19 21 1:31 PM CDT documented as of this encounter Care Teams Criminal Defense Attorney Relationship Specialty Start Date End Date Sudha Greene NP [facility] [address] [facility] [address] PCP - General 11/01/22 Noreen Flores APRN CONSERVATION TECHNICIAN [address] [place] [address] [place] [address] Assigned PCP 08/05/22 03/16/23 Agatha Null, MARÍA, Podiatry/Foot and Ankle Surgery [address] [place] [address] Assigned Musculoskeletal Provider 11/04/22 documented as of this encounter
--- OUTSIDE RECORDS SUMMARY | 2023-07-02 13:25 | XMS_ITS | Encounter Summary ---
Author Name Unknown Organization [facility] Address [address] [place] [address] Care Team Providers Care Costume Design Teacher Name Role Phone Noreen Flores APRN MEDICAL RADIATION TECH Unavailable Sudha Greene NP Primary Care Provider [...] [facility] Periop Services [address] [place] [address] Referral ID Status Reason Start Date Expiration Date Visits Re quested Visits Authorized [id number] 1 1 Encounter Details Date Type Department Care Team (Late st Contact Info) Description 02/26/2023 12:45 PM CDT - 02/26/2023 2:35 PM CDT Surgery [facility] PeriOp Services [address] [place] [address] Agatha Nieves DPM, Podiatry/Foot and Ankle Surgery [address] [place] [address] Repair peroneal tendon, right ankle Surgery Details Date/Time Status Location OR Service Patient Class Case Class Case Type Trauma Case? 02/26/23 12:45 PM Posted [facility] OR OR 10 Podiatry Same Day Surgery Elective Panel 1 Procedure [facility]RB Anes Op Region Wound Class Comments Repair peroneal tendon, righ t ankle Right General with Block Ankle I-Clean Surgeon Surgeon Role Service Panel Agatha Nieves, MARÍA, Podiatry/Foot and Ankle Surgery P [facility] Podiatry 1 documented in this encounter Social History Tobacco [...] Answer Date Recorded PHQ-2 Score 0 11/10/2020 [facility] [place] of Occupat ional Health - Occupational Stress [...] Sign Reading Time Taken Comments Blood Pressure 117/60 02/26/2023 2:30 PM CDT Pulse 93 02/26/2023 2:30 PM CDT Temperature 36.9 ??C (98.5 ??F) 02/26/2023 2:05 PM CD T Respiratory Rate 17 02/26/2023 2:30 PM CDT Oxygen Saturation 100% 02/26/2023 2:30 PM CDT Inhaled Oxygen Concentration - - Weight 86.8 kg (191 lb 4.8 oz) 02/26/2023 11:19 AM CDT Height 156 cm (5' 1.42) 02/26/2023 11:19 AM CDT Body Mass Index 35.66 02/26/2023 11:19 AM CDT documented in this encounter Discharge Instructions * Discharge Instructions* Radha Lawton RN - 02/26/2023 2:45 PM CDT [facility] Pod[facility] Triage Patient Care Nurses In Call [...] sprayIndications:Aller gic rhinitis, unspecified seasonality, unspecified trigger [place] 1-2 sprays into both nostrils daily 16 [...] 02/26/2023 11:38 AM CDT [facility] Pre-Op PRE-SURGICAL VISIT I visited with Donna [...] provided a prayer for health and healing. [facility] remains available. Shante Ellison MDiv Staff Exercise Instructor [facility] Pager: [phone] [facility] available 01/01 for emergent requests/referrals, either by having the on-call baggage checker paged or by entering an ALLEN/STAT consult in [facility] (this will also page the on-call baggage checker). documented in this encounter Miscellaneous Notes * Brief Op Note - Agatha Nieves DPM, Podiatry/Foot and Ankle Surgery - 02/26/2023 2:[address] [facility] Brief Operative Note Pre-operative diagnosis: Right foot [...] Ankle Surgery - 02/26/2023 1:20 PM CDT [facility] Operative Note Patient Name: Megan Choi Patient Date of : 1965 Date of Surgery: 02/26/2023 CSN: [id number] Pre-operative diagnosis: Right foot pain [M79.671] Peroneal tendonitis, right [M76.71] Post-operative diagnosis: Same Procedure: Right peroneal tendon repair with tendon transfer Surgeon: Agatha Nieves DPM, Podiatry/Foot and Ankle Space Operations(s): None Anesthesia: General with popliteal Hemostasis: Pneumatic [...] - 99 mg/dL 02/26/2023 2:46 PM CDT [facility] LABORAT[facility] POC Blood, Capillary BLOOD SPECIMEN / Unknown 02/26/2023 2:38 PM CDT 02/26/2023 2:46 PM CDT Agatha Nieves DPM, Podiatry/Foot and Ank le Surgery LAB - BEAKER POCT [facility] LABORATORY [facility] [address] [facility] (1st floor, no room number) [place] [address], [facility] [place] [phone] * Surgical Pathology Exam (02/26/2023 1:30 PM CDT) Case Report Surgical Pathology Report ? Case: [id number] ? Authorizing Provider: ??Agatha Nieves, MARÍA, ? Collected: ? 02/26/2023 01:30 PM ? Podiatry/Foot and Ankle ? Surgery ? Ordering Location: ? [facility] [place] ?? Received: ?02/26/2023 02:11 PM ? Main OR ? Pathologist: ? Dusty Hernandez MD ? Specimen: ?Foot, Right, right foot tendon ? 02/28/2023 10:23 PM [facility] Final Diagnosis A. Right foot tendon: - Benign tendon fibrous tissue without inflammation or atypical cellular proliferations 02/28/2023 10:23 PM [facility] Clinical Information Procedure: Repair peroneal tendon, right ankle - Right Pre-op Diagnosis: Right foot pain [M79.671] Peroneal tendonitis, right [M76.71] Post-op Diagnosis: M79.671 - Right foot pain [ICD-10-CM] M76.71 - Peroneal tendonitis, right [ICD-10-CM] 02/28/2023 10:23 PM [facility] Gross Description A(1). Foot, Right, right [...] sectioned to reveal a white-mi cut surface. Community Administrator sections are submitted in formalin in 1 cassette. [DEBRA [place](ASCP)] 02/28/2023 10:23 PM [facility] Microscopic Description Microscopic examination is performed with findings supportive of the diagnosis as noted. 02/28/2023 10:23 PM [facility] Performing Labs The technical component of this testing was completed at [facility] 02/28/2023 10:23 PM CDT LABORATORY Case Images 02/28/2023 10:23 PM CDT LABORATORY Tissue STRUCTURE OF RIGHT FOOT / Unknown 02/26/2023 1:30 PM CDT 02/26/2023 2:11 PM CDT Agatha Nieves DPM, Podiatry/Foot and Ank le Surgery LAB - BEAKER AP LABORATORY [facility] Acute Care Lab [address] 1st floor, Room [address] [place] [address], [place] [phone] LABORATORY [facility] Lab [address] [facility] (1st floor, no room number) [place] [address], [place] [phone] * (ABNORMAL) Glucose by meter (02/26/2023 11:13 AM CDT) [facility] GLUCOSE BY METER POCT 125(H) 70 - 99 mg/dL 02/26/2023 11:20 AM CDT LABORATORY POC Blood, Capillary BLOOD SPECIMEN / Unknown 02/26/2023 11:13 AM CDT 02/26/2023 11:20 AM CDT Agatha SHEPHERDM, Podiatry/Foot and Ank le Surgery LAB - BEAKER POCT LABORATORY POC [facility] Lab [address] Lab (1st floor, no room number) [place] [address], [place] [phone] * NUCLEAR CARDIAC - HIM SCAN (02/22/2023 12:00 AM CDT) Anatomical Region Laterality Modality Other 02/22/2023 Provider Outside IMG NM ORDERABLES * LAB RESULT - HIM SCAN (02/13/2023 12:00 AM CDT) 02/13/2023 Provider Outside NON-BEAKER LAB TE STING * IMAGING OTHER - HIM SCAN (02/13/2023 12:00 AM CDT) Anatomical Region Laterality Modality Other 02/13/[address] [facility] IR ORDERABLES documented in this encounter Visit Diagnoses Diagnosis Post-operative state- Primary Other postprocedural status Type 2 diabetes mellitus with complication, without long-term current use of insulin (H) Peroneal tendon tear, right, sequela Right foot pain Pain in limb Peroneal tendonitis, right documented in this encounter Administered Medications Inactive Administered Medications - up to 3 most recent administrations Medication Order MAR Action Action Date Dose Rate Site acetaminophen (TYLENOL) tablet 975 mg 975 mg, Oral, ONCE, On Sun02/26/23 at 1230, For 1 dose, Maximum acetaminophen dose from all sources = 75 mg/kg/day not to exceed 4 grams/day., Pre-procedure $Given 02/26/2023 12:14 PM CDT 975 mg bupivacaine (MARCAINE) 0.5% preservative free injection PRN, Starting on Sun02/26/23 at 1342, Intra-procedure $Given 02/26/2023 1:42 PM CDT 10 mLs Operative Site/Surgical Site ondansetron (ZOFRAN ODT) ODT tab 4 mg [...] Phase ll sodium chloride 0.9% (bottle) irrigation PRN, Starting on Sun02/26/23 at 1349, Intra-procedure $Given 02/26/2023 1:49 PM CDT 200 mLs Operative Site/Surgical Site documented in this encounter Active and Recently [...] Pre-procedure 1256 ($Given - Provi donna: Ronald Franz APRN CRNA) PRN Medication Order 02/24/2023 02/25/2023 02/26/2023 bupivacaine (MARCAINE) 0.5% preservative free injection (CANCELED) PRN, Starting on Sun02/26/23 at 1342, Intra-procedure 1342 ($Given - Provi donna: Agatha Nieves, DPM, Podiatry/Foot and Ankle Surgery) ondansetron (ZOFRAN [...] documented as of this encounter Care Teams Costume Design Teacher Relationship Specialty Start Date End Date Sudha Greene NP [address] [address] PCP - General 11/01/22 Noreen Flores APRN MEDICAL RADIATION TECH [address] [facility] [place] [address] Assigned PCP 08/05/22 03/16/23 Agatha Nieves DPM, Podiatry/Foot and Ankle Surgery [address] [place] [address] Assigned Musculoskeletal Provider 11/04/22 documented as of this encounter
--- OUTSIDE RECORDS SUMMARY | 2023-07-02 13:26 | XMS_ITS | Encounter Summary ---
Author Name Unknown Organization [facility] Address [address] [place] [address] Care Team Providers Care Ip/Mosaic Technician Name Role Phone Noreen Flores APRN BLOW OFF WORKER Unavailable Sudha Greene NP Primary Care Provider Reason for Visit * Diagnostic Imaging XR (Routine) - Pending Review Specialty Diagnoses / Procedures Referred By Rylie garcia Referred To Contact Radiology. Diagnoses Right foot pain Peroneal tendonitis, right Sinus tarsitis, right Procedures XR Foot Right G/E 3 Views Agatha Null DPM, Podiatry/Foot and Ankle Surgery [address] [facility] [address] [address] [address] [place] [address] Referral ID Status Reason Start Date Expiration Date V isits Requested Visits Authorized [id number] Pending Review 11/01/2022 11/01/2023 1 1 Encounter Details Date Type Department Care Team (Latest Contact Info) Description 11/01/2022 10:55 AM CDT Ancillary Procedure [facility] [place] [address] [place] [address] Agatha Null DPM, Podiatry/Foot and Ankle Surgery [address] [facility] [address] [address] [address] [place] [address] Right foot pain; Peroneal tendonitis, right; Sinus tarsitis, right Social History Tobacco Use Types Packs/Day Years [...] Friends and Family Patient declined 08/08/2019 Attends Taoist Services Patient declined 07/13 Active Member of [...] Answer Date Recorded PHQ-2 Score 0 11/10/2020 [facility] of Occupat ional Health - Occupational [...] suspected to have Coronavirus/COVID-19? No / Unsure 11/01/2022 9:30 AM CDT documented as of this encounter Plan of Treatment Not on file documented as of this encounter Procedures Procedure Name Priority Date/Time Associated Diagnosis Comments XR FOOT RIGHT G/E 3 VIEWS Routine 11/01/2022 11:05 AM CDT Right foot pain Peroneal tendonitis, right Sinus tarsitis, right documented in this encounter Results * XR Foot Right G/E 3 Views (11/01/2022 11:05 AM CDT) Anatomical Region Laterality Modality Foot, Ankle Right Computed Radiogr aphy Impressions 11/01/2022 12:01 PM CDT IMPRESSION: No fractures are evident. Normal joint spacing. Type II navicular. The soft tissues are unremarkable. RAYO KIRK MD SYSTEM ID: [id number] Narrative 11/01/2022 12:01 PM CDT XR FOOT RIGHT G/E 3 VIEWS 11/01/2022 11:05 AM HISTORY: weight bearing. Can leave after x-ray; Right foot pain; Peroneal tendonitis, right; Sinus tarsitis, right COMPARISON: 04/04/2016 Procedure Note Rayo Kirk MD - 11/01/2022 XR FOOT RIGHT G/E 3 VIEWS 11/01/2022 11:05 AM HISTORY: weight bearing. Can leave after x-ray; Right foot pain; Peroneal tendonitis, right; Sinus tarsitis, right COMPARISON: 04/04/2016 IMPRESSION: No fractures are evident. Normal joint spacing. Type II navicular. The soft tissues are unremarkable. RAYO KIRK MD SYSTEM ID: [id number] Agatha Null DPM, Podiatry/Foot and Ank le Surgery IMG DIAGNOSTIC IMAGING ORDERABLES documented in this encounter Visit Diagnoses Diagnosis Right foot pain Pain in limb Peroneal tendonitis, right Sinus tarsitis, right documented in this encounter Additional Health Concerns Assessment Noted Time PHQ-9 Depression Total Score: 7 11/11/19 21 1:31 PM CDT documented as of this encounter Care Teams Ip/Mosaic Technician Relationship Specialty Start Date End Date Sudha Greene NP [place] [id number] PCP - General 11/01/22 Noreen Flores APRN BLOW OFF WORKER [address] [facility] [place] [address] Assigned PCP 08/05/22 03/16/23 documented as of this encounter
--- OUTSIDE RECORDS SUMMARY | 2023-07-02 13:26 | XMS_ITS | Encounter Summary ---
Author Name Unknown Organization [facility] Address [address] [place] [id number] Care Team Providers Care Pearl Restorer Name Role Phone Noreen Flores APRN SEAT TRIMMER Unavailable Sudha Greene NP Primary Care Provider [phone] Agatha Null DPM, Podiatry /Foot and Ankle Surgery Unavailable Reason for Referral * Diagnostic Imaging XR (Routine) - Closed Specialty Diagnoses / Procedures Referred By Contpaige t Referred To Contact Radiology. Diagnoses Right foot pain Arthritis of right foot Peroneal tendonitis, right Procedures XR Joint Injection Intermed Right Agatha Null DPM, Podiatry/Foot and Ankle Surgery [address] [place] [address] Rh Xray Rs[facility] [id number] [facility] [address] [place] [address] Referral ID Status Reason Start Date Expiration Date Visits Re quested Visits Authorized Closed 11/30/2022 11/30/2023 1 1 Reason for Visit * Reason Comments Musculoskeletal Problem MRI follow up an d discuss possible surgery Encounter Details Date Type Department Care Team (Late st Contact Info) Description 11/30/2022 9:15 AM CDT Office Visit [facility] Podiatry [address] [facility] [address] [place] [address] Agatha Null DPM, Podiatry/Foot and Ankle Surgery [address] [facility] [address] [place] [address] Right foot pain (Primary Dx); Arthritis of right foot; Peroneal tendonitis, right Social History Tobacco Use Types Packs/Day [...] Friends and Family Patient declined 08/08/2019 Attends [employer] Patient declined 07/13 Active Member of [...] Answer Date Recorded PHQ-2 Score 0 11/10/2020 [facility] [place] [facility] - Occupational Stress [...] suspected to have Coronavirus/COVID-19? No / Unsure 11/30/2022 8:54 AM CDT documented as of this encounter Last Filed Vital Signs Vital Sign Reading Time Taken Comments Blood Pressure 126/78 11/30/2022 9:15 AM CDT Pulse - - Temperature - - Respiratory Rate - - Oxygen Saturation - - Inhaled Oxygen Concentration - - Weight 83.9 kg (185 lb) 11/30/2022 9:15 AM CDT Height - - Body Mass Index 33.84 11/01/2022 9:47 AM CDT documented in this encounter Patient Instructions * Patient Instructions* Dafne Guerrero MA - 11/30/2022 9:15 AM CDT Thank you for choosing [facility] Podiatry / Foot & Ankle Surgery! DR NULL'S CLINIC: [facility] [address] [place] [address] TRIAGE LINE: [phone] APPOINTMENTS: [phone] RADIOLOGY: [phone] SET UP SURGERY: [phone] PHYSICAL THERAPY: [phone] FAX NUMBER: [phone] BILLING QUESTIONS: [phone] Follow up: Will call with results Please call to schedule your MRI/CT/Ultrasound/Arthrogram appointment. The number is [phone]. documented in this encounter Progress Notes * Agatha Null DPM, Podiatry/Foot and Ankle Surgery - 11/30/2022 9:15 AM CDT Podiatry / Foot and Ankle Surgery Progress Note November 30, 2022 Subject: Patient was seen for follow-up on MRI results of her right ankle. She notes the boot does help but she still gets pain to the foot quite a bit. Objective: Vitals: BP 126/78 Wt 83.9 kg (185 lb) LMP 10/30/2011 BMI 33.84 kg/m?? BMI= Body mass index is 33.84 kg/m??. General: Patient is alert and orientated. NAD. Dermatologic: Skin is intact to both lower [...] is ambulatory without assistive device or brace. Pain on palpation along the right peroneal tendon and with eversion of the foot. Pain on palpation of the sinus tarsi right foot. ?? Radiographs: Right foot xray - I personally reviewed the xrays -no fractures are noted. Increased calcaneal inclination angle. Accessory navicular noted. MRI right ankle: Peroneus brevis tendon tendinopathy with a short segment of longitudinal partial-thickness split tearing. No full-thickness tearing or retraction. 2. Degenerative change at the articulation between the navicular and medial cuneiform with some reactive edema on both sides of the joint. This is close to the external marker placed in the patient'sarea of pain. 3. No evidence for fracture. 4. Large accessory os navicularis. The posterior tibial tendon is intact but there is some degenerative change at the pseudoarthrosis between the accessory ossicle and [place] navicular. 5. Exam otherwise negative. 6. 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 ASSESSMENT: Right foot pain Peroneal tendonitis, right Sinus tarsitis, right Medical Decision Making/Plan: Reviewed patient's chart in [facility]. Reviewed and discussed MRI results.We discussed that there is a peroneal tendon tear just as there was at last MRI and it has not really changed. She does have some arthritic changes noted in the foot as well. At this time I would probably recommend an x-ray guided injection into the arthritic joints to see if this helps with her overall foot pain before proceeding with surgery. If this does not help with the pain on the side of the foot along the peroneal tendon then we would likely proceed with surgery. She agrees with this plan. We will have her follow-up in 3 to 4 weeks to reassess after she has the injections done. All questions were answered to patient's satisfaction and she will call further questions or concerns. ? Patient risk factor: Patient is at low risk for infection. Agatha Null DPM, Podiatry/Foot and Ankle Surgery CDT documented in this encounter Plan of Treatment Not on file documented as of this encounter Results * XR Joint Injection Intermed Right (12/13/2022 1:23 PM CDT) Anatomical Region Laterality Modality Extremity Right Radio Fluoroscop y Impressions 12/14/2022 9:23 AM CDT IMPRESSION: ??Technically successful right naviculocuneiform and right sinus Tarsi steroid/anesthetic injection with favorable initial pain relief. ??Long-term results pending. MATT RAO PA-C Narrative 12/14/2022 9:23 AM CDT XR JOINT INJECTION INTERMED RIGHT ? 12/13/2022 1:23 PM ?? History: ??X-ray guided cortisone injection into the navicular cuneiform and sinus tarsi joints; Right foot pain; Arthritis of right foot; Peroneal tendonitis, right. Right foot pain. MRI demonstrating osteoarthritis. PROCEDURE: The risks (including bleeding, infection, and allergy to contrast and medications) and benefits of the procedure were explained to the patient and consent was obtained. ??1% lidocaine was used for local anesthesia. Using sterile technique and fluoroscopic guidance, a #25 gauge needle was placed into the right naviculocuneiform and right sinus Tarsi joint using a dorsal approach. ??Contrast was injected to confirm intraarticular location of the needle tip. The steroid anesthetic mixture was then injected. Estimated blood loss during the procedure was less than 5 mL. No specimens collected. No initial complications. ?? Fluoro time: 0.5 minutes Images Obtained: 4 Medications: 3 mL 1% lidocaine, 1 mL of Isovue-M 200, 40 mg of Kenalog and 2 mL of Marcaine 0.5% split between each joint space. The patients pain level (0-10 scale) were as follows: PRE INJECTION ?? 5 POST INJECTION 2 Procedure Note Matt Rao PA-C - 12/14/2022 XR JOINT INJECTION INTERMED RIGHT 12/13/2022 1:23 PM History: X-ray guided cortisone injection into the navicular cuneiform and sinus tarsi joints; Right foot pain; Arthritis of right foot; Peroneal tendonitis, right. Right foot pain. MRI demonstrating osteoarthritis. PROCEDURE: The risks (including bleeding, infection, and allergy to contrast and medications) and benefits of the procedure were explained to the patient and consent was obtained. 1% lidocaine was used for local anesthesia. Using sterile technique and fluoroscopic guidance, a #25 gauge needle was placed into the right naviculocuneiform and right sinus Tarsi joint using a dorsal approach. Contrast was injected to confirm intraarticular location of the needle tip. The steroid anesthetic mixture was then injected. Estimated blood loss during the procedure was less than 5 mL. No specimens collected. No initial complications. Fluoro time: 0.5 minutes Images Obtained: 4 Medications: 3 mL 1% lidocaine, 1 mL of Isovue-M 200, 40 mg of Kenalog and 2 mL of Marcaine 0.5% split between each joint space. The patients pain level (0-10 scale) were as follows: PRE INJECTION 5 POST INJECTION 2 IMPRESSION: Technically successful right naviculocuneiform and right sinus Tarsi steroid/anesthetic injection with favorable initial pain relief. Long-term results pending. MATT RAO PA-C Agatha SHEPHERDM, Podiatry/Foot and Ank le Surgery IMG DIAGNOSTIC IMAGING ORDERABLES documented in this encounter Visit Diagnoses Diagnosis Right foot pain- Primary Pain in limb Arthritis of right foot Unspecified arthropathy, ankle and foot Peroneal tendonitis, right Right foot pain Pain in limb Arthritis of right foot Unspecified arthropathy, ankle and foot Peroneal tendonitis, right documented in this encounter Additional Health Concerns Assessment Noted Time PHQ-9 Depression Total Score: 7 11/11/19 21 1:31 PM CDT documented as of this encounter Care Teams Pearl Restorer Relationship Specialty Start Date End Date Sudha Greene NP [address] [address] PCP - General 11/01/22 Noreen Flores APRN SEAT TRIMMER [address] [facility] [place] [address] Assigned PCP 08/05/22 03/16/23 Agatha Null, DPM, Podiatry/Foot and Ankle Surgery [address] [place] [id number] Assigned Musculoskeletal Provider 11/04/22 documented as of this encounter
--- OUTSIDE RECORDS SUMMARY | 2023-07-02 13:26 | XMS_ITS | Encounter Summary ---
Author Name Unknown Organization [place] Address [address] [place] [id number] Care Team Providers Care Load Builder Name Role Phone Noreen Flores APRN SPECIAL EFFECTS DESIGNER Unavailable Sudha Greene NP Primary Care Provider Reason for Referral * Diagnostic Imaging MRI (Routine) - Closed Specialty Diagnoses / Procedures Referred By Rylie garcia Referred To Contact Radiology. Diagnoses Right foot pain Peroneal tendonitis, right Sinus tarsitis, right Procedures MR Ankle Right w/o Contrast MR Ankle Right w/o & w Contrast Agatha Null DPM, Podiatry/Foot and Ankle Surgery [address] [place] [address] Mri Rscc [id number] [facility] [address] [place] [address] Referral ID Status Reason Start Date Expiration Date Visits Re quested Visits Authorized [id number] Closed 11/01/2022 11/01/2023 1 1 * Diagnostic Imaging XR (Routine) - Pending Review Specialty Diagnoses / Procedures Referred By Rylie garcia Referred To Contact Radiology. Diagnoses Right foot pain Peroneal tendonitis, right Sinus tarsitis, right Procedures XR Foot Right G/E 3 Views Agatha Null DPM, Podiatry/Foot and Ankle Surgery [id number] [place] [address] Referral ID Status Reason Start Date Expiration Date V isits Requested Visits Authorized [id number] Pending Review 11/01/2022 11/01/2023 1 1 Reason for Visit * Reason Comments Musculoskeletal Problem Right foot pain x years Encounter Details Date Type Department Care Team (Late st Contact Info) Description 11/01/2022 10:15 AM CDT Office Visit [facility] Podiatry [address] [place], [place] [address] Agatha Null DPM, Podiatry/Foot and Ankle Surgery [address] [place], [place] [id number] Right foot pain (Primary Dx); Peroneal tendonitis, right; Sinus tarsitis, right Social [...] Friends and Family Patient declined 08/08/2019 Attends Restorationist Services Patient declined 07/13 Active Member of [...] Answer Date Recorded PHQ-2 Score 0 11/10/2020 [facility] - Occupational [...] Sign Reading Time Taken Comments Blood Pressure 122/62 11/01/2022 9:47 AM CDT Pulse - - Temperature - - Respiratory Rate - - Oxygen Saturation - - Inhaled Oxygen Concentration - - Weight 83.9 kg (185 lb) 11/01/2022 9:47 AM CDT Height 157.5 cm (5' 2) 11/01/2022 9:47 AM CDT Body Mass Index 33.84 11/01/2022 9:47 AM CDT documented in this encounter Patient Instructions * Patient Instructions* Dafne Guerrero MA - 11/01/2022 10:15 AM CDT Thank you for choosing [facility] Podiatry / Foot & Ankle Surgery! DR NULL'S CLINIC: [facility] [address] [place] [address] TRIAGE LINE: [phone] APPOINTMENTS: [phone] RADIOLOGY: [phone] SET UP SURGERY: [phone] PHYSICAL THERAPY: [phone] FAX NUMBER: [phone] BILLING QUESTIONS: [phone] Follow up: Will Call with MRI results Please call to schedule your MRI/CT/Ultrasound/Arthrogram appointment. The number is [phone]. TENDONITIS Tendons are the strong fibrous portions of muscles that attach to bones and allow the muscle to move a joint when it contracts. Tendons are very strong because they have a lot of force exerted on them. Sometimes tendons can become painful because they have suffered an acute injury, in which too much force was exerted at one time, or an overuse injury, in which a normal force was exerted too frequently or over a prolonged period of time. As [...] to internal bleeding and increase the risk ofstroke and heart attack. Sometimes topical nitroglycerin is prescribed to help with pain. Oftenyour doctor will use a special shoe or removable walking cast to immobilize the tendon, allowing itto heal without further damage from use. These devices are very useful in helping tendons heal, butthey may slow you down or make you feel like your hip, knee, or back are out ofalignment. This is te mporary and should go away once you are out ofthe immobilization. You should not use a walking castwhen showering or driving. Another option is Platelet Rich Plasma injections. (Normally done with aSports and Orthorapedic doctor. If conservative measures fail, [...] support the tendon or prevent further damage. Yo ur foot and ankle surgeon will discuss the [...] the wall at about eye level. Keep your injured leg back with your heel on the floor. Keep the other leg forward with the knee bent. Turn your back foot slightly inward (as if you were pigeon-toed). Slowly lean into the wall until you feel a stretch in the back of your calf. Hold the stretch for 15 to 30 seconds. Return to the starting position. Repeat 3 times. Do this exercise several times each day. Standing soleus stretch: Stand facing a wall with your hands on the wall at about chest height. Keep your injured leg back with your heel on [...] seconds and then relax. Repeat 3 times. Heel raise: Balance yourself while standing behind a chair or counter. Using the chair or counter as a support to help you, raise your body up onto your toes and hold for 5 seconds. Then slowly loweryourself down without holding onto the support. (It's OK to keep holding onto the support if you need to.) When this exercise becomes less painful, try lowering yourself down on the injured leg only.Repeat 15 times. Do 2 sets of 15. Rest 30 seconds between sets. Step-up: Stand with the foot of your injured leg on a support 3 to 5 inches high (like a small stepor block of wood). Keep your other foot flat on the floor. Shift your weight onto the injured leg on the support. Straighten your injured leg as the other leg comes off the floor. Return to the starting position by bending your injured leg and slowly [...] foot still so that it will allow thetubing to stretch as you move the foot of your injured leg. Return to the starting position. Do 2 sets of 15. Balance and reach exercises: Stand next to a chair with your injured leg farther from the chair. The chair will provide support if you need it. Stand on the foot of your injured leg and bend your knee slightly. Try to raise the arch of this foot while keeping your big toe on the floor. Keep your foot in this position. With the hand that is farther away from the chair, reach forward in front of you by bending at the waist. Avoid bending your knee any more as you do this. Repeat this 10 times. Tomake the exercise more challenging, reach farther in front of you. Do 2 sets of 10. esl instructional assistant the same position as above. While keeping your arch height, reach the hand that is farther away from the chair across your body toward the chair. The farther you reach, the more challenging the exercise. Do2 sets of 10. Resisted ankle eversion: Sit [...] foot still so that it will allow thetubing to stretch as you move the foot [...] letting the edges touch the floor. Try to do this for 2 minutes without touching the floor. Rotate the wobble board in clockwise and counterclockwise circles, but do not let the edge of the board touch the floor. When you have mastered exercises A through D, try repeating them while standing on just your injured leg. After you are able to do these exercises on one leg, try to do them with your eyes closed. Make sure you have something nearby to support you in case you lose your balance. SINUS TARSI SYNDROME Clinical disorder characterized by specific symptoms and signs localized to the sinus tarsi (known as the ???eye of the foot?? ), which refers to an opening on the outside of the foot between the ankle and heel bone. HISTORY First described by Jin Bustillo???Farzad in 1957. He also described a surgical procedure to address thisproblem (called the Iwona???Farzad procedure) that involves removal of all or a portion of the contentsof the sinus tarsi. ETIOLOGY Cause can be due to an inversion (rolling out) ankle sprain (70-80% of the time) or can be due to a???pinching?? or impingement of the soft tissues in the sinus tarsi due to a very pronated (rolling in) foot (20-30% of the time). CLINICAL PRESENTATION Patients present with localize pain to the sinus tarsi region with a feeling of instability and aggravation by weight bearing activity. These patients do poorly on uneven surfaces, i.e., grass and gravel. Physical examination reveals pain to palpation of the sinus tarsi with aggravation on foot inversion (turning in) or eversion (turning out). Looseness and instability of the ankle and foot joints may be present as well. DIAGNOSTIC TESTING May include x-rays, bone scan, CT scan and MRI evaluation. Injection with local anesthetic is diagnostic for localizing this problem to the sinus tarsi. Many times this is a diagnosis make by excluding other common problems in the foot as definitive diagnostic findings are rarely present. MRI is probably the one best test to shoe changes in the tissues of the sinus tarsi involving either inflammation or scar tissue from previous injury. Ankle arthroscopy may also be beneficial to directly evaluate the sinus for damaged tissue. TREATMENT After a diagnosis is established conservative treatment can be initiated which is generally very effective in eliminating the problem. Treatment may include anti-inflammatories, stable shoes, period of immobilization, ankle sleeve and [id number] orthoses. Resistant cases may require a course of oral steroids, series of steroid injectionss, physical therapy or custom orthoses. Rarely is surgery indicated and if needed open surgery (through an incision) or closed surgery (via arthroscopy) can be considered. Excellent results should be expected but surgery is not a panacea and should be considered as a last resort. SUMMARY STS is a problem that can occur commonly after an ankle sprain or in someone who has a severly pronated foot. Diagnosis is critical as this will dictate appropriate treatment which can differ significantly from other common problems seen in the foot and ankle. Conservative treatment is usually effective and surgery is rarely needed and should be considered after an adequate and thorough trial of conservative treatment. EXERCISES After your physician, physical therapist or maintenance trainer feels your ankle has made progress significant enough to begin more advanced exercises, he or she may recommend some of the exercises thatfollow. He or she may also advise you to continue with the exercises which you completed in Phase Iof your rehabilitation. While completing these exercises, remember: Restoring tissue flexibility helps normal motion to return to the joints. This allows healthier, less painful movement and activity. An effective stretch should be held for at least 30 seconds. A stretch should never be painful. You should only feel a gentle lengthening or release in the stretched tissue. RANGE OF MOTION- Ankle Plantar Flexion Sit with your right / left leg crossed over your opposite knee. Use your opposite hand to pull the top of your foot and toes toward you. You should feel a gentle stretch on the top of your foot/ankle. Hold this position for 10 seconds. Repeat 10-12 time. RANGE OF MOTION - Ankle Eversion Sit with your right / left ankle crossed over your opposite knee. Fiberglass Auto Body Repairer your foot with your opposite hand, placing your thumb on the top of your foot and your fingersacross the bottom of your foot. Gently push your foot downward with a slight rotation so your littlest toes rise slightly. You should feel a gentle stretch on the inside of your ankle. Hold the stretch for 10 seconds. Repeat 10-12 times RANGE OF MOTION - Ankle Inversion Sit with your right / left ankle crossed over your opposite knee. Fiberglass Auto Body Repairer your foot with your opposite hand, placing your thumb on the bottom of your foot and your fingers across the top of your foot. Gently pull your foot so the smallest toe comes toward you and your thumb pushes the inside of the ball of your foot away from you. You should feel a gentle stretch on the outside of your ankle. Hold the stretch for 10 seconds. Repeat 10-12 times RANGE OF MOTION - Ankle Dorsiflexion, Active Assisted Remove shoes and sit on a chair that is preferably not on a carpeted surface. Place right / left foot under knee. Extend your opposite leg for support. Keeping your heel down, slide your right / left foot back toward the chair until you feel a stretchat your ankle or calf. If you do not feel a stretch, slide your bottom forward to the edge of the chair, while still keeping your heel down. Hold this stretch for 10 seconds. Repeat 10-12 times. STRETCH - Gastrocsoleus, Standing Note: This exercise can place a lot of stress on your foot and ankle. Please complete this exerciseonly if specifically instructed by your caregiver. Place the ball of your right / left foot on a step, keeping your other foot firmly on the same step. Hold on to the wall or a rail for balance. Slowly lift your other foot, allowing your body weight to press your heel down over the edge of thestep. You should feel a stretch in your right / left calf. Hold this position for 10 seconds. Repeat this exercise with a slight bend in your right / left knee. Repeat 10-12 times STRENGTHENING EXERCISES - Subtalar Dislocation Phase II These are some of the exercises you may progress to in your rehabilitation program. Do not begin these until you have your clinician's permission. Although your condition has improved, the Phase I exercises will continue to be helpful and you may continue to complete them. As you complete strengthening exercises, remember: Strong muscles with good endurance tolerate stress better. Do the exercises as initially prescribed by your caregiver. Progress slowly with each exercise, gradually increasing the number of repetitions and weight used under his or her guidance. You may experience muscle soreness or fatigue, but the pain or discomfort you are trying to eliminate should never worsen during these exercises. If this pain does worsen, stop and make certain you are following the directions exactly. If the pain is still present after adjustments, discontinue theexercise until you can discuss the trouble with your clinician. You may experience muscle soreness or fatigue, but the pain or discomfort you are trying to eliminate should never worsen during these exercises. If this pain does worsen, stop and make certain you are following the directions exactly. If the pain is still present after adjustments, discontinue theexercise until you can discuss the trouble with your clinician. STRENGTH - Plantar-flexors, Standing Stand with your feet, shoulder width apart. Steady yourself with a wall or table using as little support as needed. Keeping your weight evenly spread over the width of your feet, rise up on your toes.* Hold this position for 10 seconds. Repeat 10-12 times *If this is too easy, shift your weight toward your right / left leg until you feel challenged. Ultimately, you may be asked to do this exercise with you right / left foot only. STRENGTH - Plantar-flexors, Eccentric Note: This exercise can place a lot of stress on your foot and ankle. Please complete this exerciseonly if specifically instructed by your caregiver. Place the balls of your feet on a step. With your hands, use only enough support from a wall or rail to keep your balance. Keep your knees straight and rise up on your toes. Slowly shift your weight entirely to your right / left toes and milk pickup driver your opposite foot. Gently and with controlled movement, lower your weight through your right / left foot so that your heel drops below the level of the step. You will feel a slight stretch in the back of your right / left calfat the ending position. Use the healthy leg to help rise up onto the balls of both feet, then lower weight only on the right / left leg again. Build up to 15 repetitions. Then progress to 3 consecutive sets of 15 repetitions.* After completing the above exercise, complete the same exercise with a slight knee bend (about 30 degrees). Again, build up to 15 repetitions. Then progress to 3 consecutive sets of 15 repetitions.* Perform this exercise 3 times per day. *When you easily complete 3 sets of 15, your physician, physical therapist or maintenance trainer may advise you to add resistance by wearing a backpack filled with additional weight. documented in this encounter Progress Notes * Agatha Null DPM, Podiatry/Foot and Ankle Surgery - 11/01/2022 10:15 AM CDT PATIENT HISTORY: Megan Choi is a 57 year old female who presents to clinic for pain to the right foot. Notes has been going on for years. Throbbing, shooting pain. States it is daily. States its 10 out of 10. Worse with standing. She has tried elevating it massage and painkillers but it hasnot helped. She works at [employer] and is on her feet all day Review of Systems: Patient denies fever, chills, rash, wound, stiffness, numbness, weakness, heart burn, blood in stool, chest pain with activity, calf pain when walking, shortness of breath with activity, chronic cough, easy bleeding/bruising, swelling of ankles, excessive thirst, fatigue, depression, anxiety. Patient admits to limping. PAST MEDICAL HISTORY: Past Medical History: Diagnosis Date ??? Aftercare following surgery of the musculoskeletal system 07/03/2016 ??? Arthritis ??? Diabetes mellitus (H) Type 2 ??? Dvt femoral (deep venous thrombosis) (H) 04/17 post surgical, stopped coumadin 01/16 ??? IFG (impaired fasting glucose) 10/03/2015 PAST SURGICAL HISTORY: Past Surgical History: Procedure Laterality Date ??? SECTION ??? ENT SURGERY T&A < 10 y/o ??? RELEASE TRIGGER FINGER Right 02/09/2020 Right trigger thumb release at A1 herb, Dr. Rios Monteiro, [facility] ??? REPAIR TENDON PERONEAL Left 06/08/2016 Procedure: REPAIR TENDON PERONEAL; Surgeon: Chaka, Agatha J, DPM, Pod; Location: [facility] OR ??? ZZC SPINAL FUSION,ANT,EA ADNL LEVEL 2005 L5, S1, Repeated in 2006 ??? ZZC SPINAL FUSION,ANT,EA ADNL LEVEL 2006 SI joints ??? ZZC SPINAL FUSION,ANT,EA ADNL LEVEL 2000 C5-C7 fused MEDICATIONS: Current Outpatient Medications: ??? Acetaminophen (TYLENOL PO), Take 1,000 mg by mouth daily as needed for mild pain or fever, Disp: , Rfl: ??? ASPIRIN PO, Take 81 mg by mouth daily., Disp: , Rfl: ??? blood glucose (NO BRAND SPECIFIED) lancets standard, Use to test blood sugar 2 times daily or as directed., Disp: 100 each, Rfl: 11 ??? blood glucose (NO BRAND SPECIFIED) test strip, Use to test blood sugar 2 times daily or as directed., Disp: 1 Box, Rfl: 11 ??? [employer] ALLERGY RELIEF-D 10-240 MG 24 hr tablet, TAKE 1 TABLET BY MOUTH EVERY DAY, Disp: 90 tablet,Rfl: 11 ??? DULoxetine (CYMBALTA) 30 MG capsule, TAKE 1 CAPSULE BY MOUTH EVERY DAY, Disp: 90 capsule, Rfl: 1 ??? fluticasone (FLONASE) 50 MCG/ACT nasal spray, Irvona 1-2 sprays into both nostrils daily, Disp: 16 g, Rfl: 11 ??? IBUPROFEN PO, Take 800 mg by mouth daily as needed for moderate pain, Disp: , Rfl: ??? metFORMIN (GLUCOPHAGE) 500 MG tablet, TAKE 2 TABLETS BY MOUTH 2 TIMES DAILY (WITH MEALS), Disp:360 tablet, Rfl: 0 ??? naproxen (NAPROSYN) 500 MG tablet, Take 1 tablet (500 mg) by mouth 2 times daily (with meals), Disp: 60 tablet, Rfl: 3 ??? simvastatin (ZOCOR) 20 MG tablet, Take 1 tab daily, Disp: 90 tablet, Rfl: 3 ??? topiramate (TOPAMAX) 50 MG tablet, Take 1 tablet (50 mg) by mouth 2 times daily Take 1 tab by mouth 2 times daily, Disp: 180 tablet, Rfl: 3 ??? zolpidem (AMBIEN) 5 MG tablet, Take 1 tab nightly, Disp: 30 tablet, Rfl: 5 ? ? JAY/ARB NOT PRESCRIBED, INTENTIONAL,, 1 each daily JAY & ARB not prescribed due to not needed (Patient not taking: Reported on 08/21/2017), Disp: , Rfl: ??? blood glucose (ACCU-CHEK JANICE) test strip, 1 strip by In Vitro route 2 times daily (Patient not taking: Reported on 01/03/2021), Disp: 100 strip, Rfl: prn ??? omeprazole (PRILOSEC) [address] capsule, TAKE 2 CAPSULES BY MOUTH EVERY DAY (Patient not taking:Reported on 11/01/2022), Disp: 180 capsule, Rfl: 0 ??? SUMAtriptan (IMITREX) 25 MG tablet, TAKE 1 TO 2 TABLETS BY MOUTH ONCE FOR MIGRAINE. OK TO REPEAT X 1 AFTER 2HOURS. MAX 12TAB/25DAYS INS (Patient not taking: Reported on 01/03/2021), Disp: 12 tablet, Rfl: 8 ALLERGIES: Allergies Allergen Reactions ??? Erythromycin Rash As a child SOCIAL HISTORY: Social History Socioeconomic History ??? Marital status: Spouse name: Not on file ??? Number of children: Not on file ??? Years of education: Not on file ??? Highest education level: 12th grade Occupational History ??? 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 Smoking status: Never ??? Smokeless tobacco: Never Vaping Use ??? Vaping status: Not on file Substance and Sexual Activity ??? Alcohol use: Yes Comment: Rare ??? Drug use: No ??? Sexual activity: Yes Partners: Male control/protection: Surgical Comment: Tubal Other Topics Concern ??? Parent/sibling w/ CABG, [place] or angioplasty before 65F 55M? No Social History Narrative ??? Not on file Social Determinants of Health Financial Resource Strain: Low Risk (08/08/2019) Overall Financial Resource Strain (CARDIA) ??? Difficulty of Paying Living Expenses: Not hard at all Food Insecurity: Not on file Transportation Needs: No Transportation Needs (08/08/2019) PRAPARE - Transportation ??? Lack of Transportation (Medical): No ??? Lack of Transportation (Non-Medical): No Physical Activity: Inactive (08/08/2019) Exercise Vital Sign ??? Days of Exercise per Week: 0 days ??? Minutes of Exercise per Session: 0 min Stress: Stress Concern Present (08/08/2019) [place] [employer] - Occupational Stress Questionnaire ??? Feeling of Stress : Rather much Social Connections: Unknown (08/08/2019) Social Connection and Isolation Panel [NHANES] ??? Frequency of Communication with Friends and Family: Three times a week ??? Frequency of Social Gatherings with Friends and Family: Patient refused ??? Attends Restorationist Services: Patient refused ??? Active Member of Clubs or Organizations: No ??? Attends Club or Organization Meetings: Patient refused ??? Marital Status: Intimate Partner Violence: Not on file Housing Stability: Not on file FAMILY HISTORY: Family History Problem Relation Age of Onset ??? Cardiovascular Mother [place] age 72 ??? Diabetes Mother Type II ??? Hypertension Mother ??? Lipids Mother ??? Arthritis Mother OA ??? Kidney Disease Mother 70 ??? Cardiovascular Father [place] early 40s, subsequent bipass ??? Hypertension Father [...] Brother ??? Kidney Disease Brother 55 EXAM:Vitals: BP 122/62 Ht 1.575 m (5' 2) Wt 83.9 kg (185 lb) LMP 10/30/2011 BMI 33.84 kg/m?? BMI= Body mass index is 33.84 kg/m??. A1C: 6.1 (01/13/2020) General appearance: Patient is alert and fully [...] palpation of the sinus tarsi right foot. Radiographs: Right foot xray - I personally reviewed the xrays -no fractures are noted. Increased calcaneal inclination angle. Accessory navicular noted. ASSESSMENT: Right foot pain Peroneal tendonitis, right Sinus tarsitis, right Medical Decision Making/Plan: Reviewed patient's chart in [facility]. Reviewed and discussed causes of tendonitis. We discussed treatments such as immobiliation, icing, stretching, heel lifts, orthotics, physical therapy, MRI. She is concerned that her tendon is torn like her other foot was 5 years ago. At this time we will put her in a boot that she can wear at work. We will get baseline x-rays today but order an MRI as Ifeel that this is also with the tendon. We will call her with the results. If there is a tear she may require surgical intervention. If no tearing it is just inflammation of the sinus tarsi we could try a cortisone injection. She was given a letter for work. All questions were answered to patient'ssatisfaction and she will call further questions or concerns. Patient risk factor: Patient is at low risk for infection. Agatha Null DPM, Podiatry/Foot and Ankle Surgery documented in this encounter Plan of Treatment Not on file documented as of this encounter Results * MR Ankle Right w/o Contrast (11/16/2022 1:10 PM CDT) Anatomical Region Laterality Modality Right Ankle, SUBRAD MR MSK, UMP MR MSK, RAD MR Magnetic Resonance 11/16/2022 1:10 PM CDT Impressions 11/20/2022 1:24 PM CDT IMPRESSION: 1. 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 No full-thickness tearing or retraction. 2. ??Degenerative change at the articulation between the navicular and medial cuneiform with some reactive edema on both sides of the joint. This is close to the external marker placed in the patient's area of pain. 3. ??No evidence for fracture. 4. ??Large accessory os navicularis. The posterior tibial tendon is intact but there is some degenerative change at the pseudoarthrosis between the accessory ossicle and [place] navicular. 5. ??Exam otherwise negative. 6. ??Thickening of the plantar fascia without signal abnormality consistent with old resolved plantar fasciitis. ? Narrative 11/20/2022 1:24 PM CDT EXAM: MR ANKLE RIGHT W/O CONTRAST LOCATION: [facility] DATE/TIME: 11/16/2022 1:10 PM CDT INDICATION: Assess for peroneal tendon tear versus calcaneal stress fracture. COMPARISON: None. TECHNIQUE: Unenhanced. FINDINGS: TENDONS: -Peroneal: Peroneus brevis tendon tendinopathy with a short segment of longitudinal partial-thickness split tearing. No full-thickness tearing or retraction. Mild peroneus longus tendinopathy without tearing. -Medial: Large accessory os navicularis receives the attachment of the posterior tibial tendon which is otherwise intact. There is some degenerative change at the pseudoarthrosis between the accessory ossicle and [place] navicular. -Anterior: Anterior tibialis, extensor hallucis longus, and extensor digitorum longus tendons are normal. No tenosynovitis. -Achilles: No tendinopathy or paratenonitis. LIGAMENTS: -Anterior talofibular ligament: Intact. -Calcaneofibular ligament: Intact. -Posterior talofibular ligament: Intact. -Syndesmotic inferior tibiofibular ligaments: Intact. -Deltoid ligament complex: Intact. -Spring ligament complex: Intact. JOINTS AND BONES: -No evidence for fracture. There is degenerative change at the navicular cuneiform articulation where there is some reactive edema on both sides of the joint. This is primarily seen between the navicular and medial cuneiform on series 5 image 20 and series 3 image 14 and is adjacent to the area demarcated by the external marker in the region of the patient's pain. SOFT TISSUES: -Plantar fascia: Thickening of the plantar fascia without signal abnormality is likely secondary to old resolved plantar fasciitis. -Sinus tarsi and tarsal tunnel: Normal. -Muscles: Normal. Procedure Note Abimael Garcia MD - 11/20/2022 EXAM: MR ANKLE RIGHT W/O CONTRAST LOCATION: [facility] DATE/TIME: 11/16/2022 1:10 PM CDT INDICATION: Assess for peroneal tendon tear versus calcaneal stressfracture. COMPARISON: None. TECHNIQUE: Unenhanced. FINDINGS: TENDONS: -Peroneal: Peroneus brevis tendon tendinopathy with a short segment oflongitudinal partial-thickness split tearing. No full-thickness tearing orretraction. Mild peroneus longus tendinopathy without tearing. -Medial: Large accessory os navicularis receives the attachment of theposterior tibial tendon which is otherwise intact. There is somedegenerative change at the pseudoarthrosis between the accessory ossicleand [place] navicular. -Anterior: Anterior tibialis, extensor hallucis longus, and extensordigitorum longus tendons are normal. No tenosynovitis. -Achilles: No tendinopathy or paratenonitis. LIGAMENTS: -Anterior talofibular ligament: Intact. -Calcaneofibular ligament: Intact. -Posterior talofibular ligament: Intact. -Syndesmotic inferior tibiofibular ligaments: Intact. -Deltoid ligament complex: Intact. -Spring ligament complex: Intact. JOINTS AND BONES: -No evidence for fracture. There is degenerative change at the navicularcuneiform articulation where there is some reactive edema on both sides ofthe joint. This is primarily seen between the navicular and medialcuneiform on series 5 image 20 and series 3 image 14 and is adjacent to the area demarcated by the externalmarker in the region of the patient's pain. SOFT TISSUES: -Plantar fascia: Thickening of the plantar fascia without signalabnormality is likely secondary to old resolved plantar fasciitis. -Sinus tarsi and tarsal tunnel: Normal. -Muscles: Normal. IMPRESSION: 1. Peroneus brevis tendon tendinopathy with a short segment oflongitudinal partial-thickness split tearing. No full-thickness tearing orretraction. 2. Degenerative change at the articulation between the navicular andmedial cuneiform with some reactive edema on both sides of the joint. Thisis close to the external marker placed in the patient's area of pain. 3. No evidence for fracture. 4. Large accessory os navicularis. The posterior tibial tendon is intactbut there is some degenerative change at the pseudoarthrosis between theaccessory ossicle and [place] navicular. 5. Exam otherwise negative. 6. Thickening of the plantar fascia without signal abnormality consistentwith old resolved plantar fasciitis. Agatha Null DPM, Podiatry/Foot and Ank le Surgery IMG MRI ORDERABLES * XR Foot Right G/E 3 Views (11/01/2022 11:05 AM CDT) Anatomical Region Laterality Modality Foot, Ankle Right Computed Radiogr aphy Impressions 11/01/2022 12:01 PM CDT IMPRESSION: No fractures are evident. Normal joint spacing. Type II navicular. The soft tissues are unremarkable. RAYO KIRK MD SYSTEM ID: ??[id number] Narrative 11/01/2022 12:01 PM CDT XR FOOT RIGHT G/E 3 VIEWS 11/01/2022 11:05 AM HISTORY: weight bearing. Can leave after x-ray; Right foot pain; Peroneal tendonitis, right; Sinus tarsitis, right COMPARISON: 04/04/2016 Procedure Note Rayo iKrk MD - 11/01/2022 XR FOOT RIGHT G/E 3 VIEWS 11/01/2022 11:05 AM HISTORY: weight bearing. Can leave after x-ray; Right foot pain; Peroneal tendonitis, right; Sinus tarsitis, right COMPARISON: 04/04/2016 IMPRESSION: No fractures are evident. Normal joint spacing. Type II navicular. The soft tissues are unremarkable. RAYO KIRK MD SYSTEM ID: [id number] Agatha Null DPM, Podiatry/Foot and Ank le Surgery IMG DIAGNOSTIC IMAGING ORDERABLES documented in this encounter Visit Diagnoses Diagnosis Right foot pain- Primary Pain in limb Peroneal tendonitis, right Sinus tarsitis, right Right foot pain Pain in limb Peroneal tendonitis, right Sinus tarsitis, right Right foot pain Pain in limb Peroneal tendonitis, right Sinus tarsitis, right documented in this encounter Additional Health Concerns Assessment Noted Time PHQ-9 Depression Total Score: 7 11/11/19 21 1:31 PM CDT documented as of this encounter Care Teams Load Builder Relationship Specialty Start Date End Date Sudha Greene NP [address] [address] PCP - General 11/01/22 Noreen Flores APRN SPECIAL EFFECTS DESIGNER [address] [place] [address] [place] [id number] Assigned PCP 08/05/22 03/16/23 documented as of this encounter
--- OUTSIDE RECORDS SUMMARY | 2023-07-02 13:26 | XMS_ITS | Encounter Summary ---
Author Name Unknown Organization [facility] Address [address] [place] [address] Care Team Providers Care Measurement Operator Name Role Phone Noreen Flores APRN TRUCKING CONTRACTOR Unavailable Sudha Greene NP Primary Care Provider [phone] Encounter Details Date Type Department Care Team (Latest Contact Info) Description 11/01/2022 Travel Social History Tobacco Use Types Packs/Day [...] Friends and Family Patient declined 08/08/2019 Attends Bahai Services Patient declined 07/13 Active Member of [...] Answer Date Recorded PHQ-2 Score 0 11/10/2020 [facility] [place] of Occupat ional Health - Occupational Stress [...] as of this encounter Care Teams Measurement Operator Relationship Specialty Start Date End Date Sudha Greene NP [address] [address] PCP - General 11/01/22 Noreen Flores APRN TRUCKING CONTRACTOR [address] [facility] [place] [id number] Assigned PCP 08/05/22 03/16/23 documented as of this encounter
--- OUTSIDE RECORDS SUMMARY | 2023-07-02 13:26 | XMS_ITS | Encounter Summary ---
Author Name Unknown Organization [facility] Address [address] [place] [address] Care Team Providers Care Cold Strip Roller Name Role Phone Noreen Flores APRN VACUUM CLEANER ASSEMBLER Unavailable Sudha Greene NP Primary Care Provider Agatha Null DPM, Podiatry /Foot and Ankle Surgery Unavailable Encounter Details Date Type Department Care Team (Latest Contact Info) Description 11/30/2022 Travel Social History Tobacco Use Types Packs/Day [...] Friends and Family Patient declined 08/08/2019 Attends Caodaism Services Patient declined 07/13 Active Member of [...] Answer Date Recorded PHQ-2 Score 0 11/10/2020 [facility] [place] of Occupat ional Health - Occupational Stress [...] documented as of this encounter Care Teams Cold Strip Roller Relationship Specialty Start Date End Date Sudha Greene NP [address] [address] PCP - General 11/01/22 Noreen Flores APRN CNP [address] [place] [address] [place] [id number] Assigned PCP 08/05/22 03/16/23 Agatha Null DPM, Podiatry/Foot and Ankle Surgery [address] [address] Assigned Musculoskeletal Provider 11/04/22 documented as of this encounter
--- OUTSIDE RECORDS SUMMARY | 2023-07-02 13:26 | XMS_ITS | Encounter Summary ---
Author Name Unknown Organization [facility] Address [address] [place] [address] Care Team Providers Care Jig Worker Name Role Phone Noreen Flores APRN BOTTOM FILLER Unavailable Sudha Greene NP Primary Care Provider Agatha Null DPM, Podiatry /Foot and Ankle Surgery Unavailable Reason for Visit * Reason Comments Urgent Care Sinus Problem C/O sinus infection for 1 day Encounter Details Date Type Department Care Team (Late st Contact Info) Description 11/26/2022 1:30 PM CDT Office Visit [facility] [address] [place] [address] Santos Alegria PA-C [address] [place] [address] Viral URI with cough (Primary Dx); Fever in adult; Type 2 diabetes mellitus with complication, without long-term current use of insulin (H); Nasal congestion; Sore throat; Generalized body aches; Generalized headache Social History Tobacco Use Types Packs/Day Years [...] Friends and Family Patient declined 08/08/2019 Attends Mandaen Services Patient declined 07/13 Active Member of Clubs or Organizations No 08/08/2019 Attends Club or Organization Meetings Patient de citlalyed 08/08/2019 Marital Status 08/08/2019 AUDIT-C Answer Date [...] Answer Date Recorded PHQ-2 Score 0 11/10/2020 [facility] of Occupat ional Health - Occupational [...] suspected to have Coronavirus/COVID-19? No / Unsure 11/26/2022 1:25 PM CDT documented as of this encounter Last Filed Vital Signs Vital Sign Reading Time Taken Comments Blood Pressure 138/84 11/26/2022 2:55 PM CDT Pulse 92 11/26/2022 2:55 PM CDT Temperature 38.9 ??C (102.1 ??F) 11/26/2022 2:55 PM C DT Respiratory Rate - - Oxygen Saturation 99% 11/26/2022 2:55 PM CDT Inhaled Oxygen Concentration - - Weight 83.9 kg (185 lb) 11/26/2022 2:55 PM CDT Height - - Body Mass Index 33.84 11/01/2022 9:47 AM CDT documented in this encounter Patient Instructions * Patient Instructions* Santos Alegria PA-C - 11/26/2022 1:30 PM CDT November 26, 2022 Urgent Care Plan -Home supportive care -Avoid ibuprofen due to report of what sounds like gastric irritation in the past. -You may take [id number] Tylenol (please read the dosing instructions carefully). Do not takemore than 3000 mg of Tylenol in 24 hours -If your-COVID test is positive, I encourage you to reach out to your primary care doctor for consideration of treatment with a medication called Paxlovid -Encourage extra fluids -Follow-up with primary care or urgent care if no improvement in the next 3 to 5 days, if your symptoms are not all better in the next 7 to 10 days, and sooner if worsening. -I did provide you with a letter to return to work on 11/30/2022-as you requested. However, as we discussed, you should not return to work until you have been fever free for 24 hours (without needing to take Tylenol), and your COVID test returns negative. * Attachments The following attachments cannot be sent through Care Everywhere. * URI, Viral, No Abx (Adult) (Romansh) documented in this encounter Progress Notes * Santos Alegria PA-C - 11/26/2022 1:30 PM CDT ASSESSMENT/PLAN: (J06.9) Viral URI with cough (primary encounter diagnosis) MDM: Acute onset upper respiratory symptoms, but associated fever, and a 57-year-old female with coexisting diabetes. Rapid strep is negative. Strep PCR is pending. COVID PCR is pending. Her symptomsare consistent with viral URI. No evidence of secondary bacterial infection on exam. No evidence ofrespiratory distress or other medical distress requiring emergent intervention at this time. Plan: November 26, 2022 Urgent Care Plan -Home supportive care -Avoid ibuprofen due to report of what sounds like gastric irritation in the past. -You may take [id number] Tylenol (please read the dosing instructions carefully). Do not takemore than 3000 mg of Tylenol in 24 hours -If your-COVID test is positive, I encourage you to reach out to your primary care doctor for consideration of treatment with a medication called Paxlovid -Encourage extra fluids -Follow-up with primary care or urgent care if no improvement in the next 3 to 5 days, if your symptoms are not all better in the next 7 to 10 days, and sooner if worsening. -I did provide you with a letter to return to work on 11/30/2022-as you requested. However, as we discussed, you should not return to work until you have been fever free for 24 hours (without needing to take Tylenol), and your COVID test returns negative. (R50.9) Fever in adult Plan: acetaminophen (TYLENOL) tablet 650 mg, Streptococcus A Rapid Screen w/Reflex to PCR - Clinic Collect, Symptomatic COVID-19 Virus (Coronavirus) by PCR Nose, Group A Streptococcus PCR Throat Swab (E11.8) Type 2 diabetes mellitus with complication, without long-term current use of insulin (H) (R09.81) Nasal congestion (J02.9) Sore throat Plan: Streptococcus A Rapid Screen w/Reflex to PCR - Clinic Collect, Symptomatic COVID-19 Virus (Coronavirus) by PCR Nose, Group A (R52) Generalized body aches (R51.9) Generalized headache SUBJECTIVE: Megan Russo a 57 year old female, with a past medical history includes diabetes, presenting to urgent care today for evaluation of acute onset nasal/sinus congestion, sore throat, fever (highest temperature thus far is a 102.1 ??F noted on rooming here today), waxing and waning generalizedheadache, waxing and waning generalized body aches and malaise x1 day duration. Patient is also requesting a note stating she was seen here today and that she may return to work on 11/30/2022 (which reportedly her next scheduled workday). Patient tells me her worst cervically requires doctors okay to return to work. We discussed her return to work we provisional (as per below after visit summary). Illness Contact: No known specific illness contact ROS: CONSITUTIONAL: Positive for fever as per above. Positive malaise. No severe fatigue (still able to do all activities of daily living and self cares) HEENT: Positive sore throat as per above HPI. No difficulty talking, swallowing, opening mouth or breathing upon questioning today. RESP: Positive for acute onset cough, described as mild. No wheezing or shortness of breath. No coughing up of blood. No blue lips, fingers, or blue toes. GI: No acute onset nausea, vomiting or diarrhea. No abdominal pain. SKIN: No acute rash or hives NEURO: Positive for waxing and waning generalized headache as per above. No severe headaches, neck stiffness, photophobia, rash, mental status changes or lethargy. ENDOCRINE: Patient states she has not had any sudden increase in blood sugars. URINARY: No acute dysuria or UTI symptoms Past Medical History: Diagnosis Date ??? Aftercare following surgery of the musculoskeletal system 07/03/2016 ??? Arthritis ??? Diabetes mellitus (H) Type 2 ??? Dvt femoral (deep venous thrombosis) (H) 04/17 post surgical, stopped coumadin 01/16 ??? IFG (impaired fasting glucose) 10/03/2015 Patient Active Problem List Diagnosis ??? Migraine headache ??? GERD (gastroesophageal reflux disease) ??? Family history of MD (myocardial infarction) ??? Persistent insomnia ??? Type [...] type ??? Snoring ??? Vitamin D deficiency ??? Chest pain Current Outpatient Medications Medication ??? Acetaminophen (TYLENOL PO) ??? ASPIRIN PO ??? blood glucose (NO BRAND SPECIFIED) lancets standard ??? blood glucose (NO BRAND SPECIFIED) test strip ??? [facility] ALLERGY RELIEF-D 10-240 MG 24 hr tablet ??? DULoxetine (CYMBALTA) 30 MG capsule ??? fluticasone (FLONASE) 50 MCG/ACT nasal spray ??? IBUPROFEN PO ??? metFORMIN (GLUCOPHAGE) 500 MG tablet ??? naproxen (NAPROSYN) 500 MG tablet ??? simvastatin (ZOCOR) 20 MG tablet ??? topiramate (TOPAMAX) 50 MG tablet ??? zolpidem (AMBIEN) 5 MG tablet ??? JAY/ARB NOT PRESCRIBED, INTENTIONAL, ??? blood glucose (ACCU-CHEK JANICE) test strip ??? omeprazole (PRILOSEC) [address] capsule ??? SUMAtriptan (IMITREX) 25 MG tablet No current facility-administered medications for this visit. Allergies Allergen Reactions ??? Erythromycin Hives ??? Azithromycin Other (See Comments) ??? Erythromycin Rash As a child OBJECTIVE: BP 138/84 Pulse 92 Temp (!) 102.1 ??F (38.9 ??C) (Tympanic) Wt 83.9 kg (185 lb) LMP 10/30/2011 SpO2 99% BMI 33.84 kg/m?? General appearance: alert and no apparent distress Skin color is uniform in color and without rash. HEENT: Conjunctiva not injected. Sclera clear. Left TM is normal: no effusions, no erythema, and normal landmarks. Right TM is normal: no effusions, no erythema, and normal landmarks. Nasal mucosa is congested Oropharyngeal exam is positive for mild, generalized, posterior and she will erythema. No asymmetry. Uvula is midline. No trismus. Voice is clear. No lesions, adenopathy, plaque or exudate. NECK: Trachea midline. Neck is supple, FROM. No neck stiffness. No adenopathy CARDIAC:NORMAL - regular rate and rhythm without murmur. RESP: No increased work of breathing. Patient is able to speak multiple sentences without pause today. Lung valdez are clear to ausculation. No rales, rhonchi, or wheezing. NEURO: Alert and oriented. Normal speech and mentation. CN II/XII grossly intact. Gait within normal limits. LAB: Results for orders placed or performed in visit on 11/26/22 Streptococcus A Rapid Screen w/Reflex to PCR - Clinic Collect Status: Normal Specimen: Throat; Swab Result Value Ref Range Group A Strep antigen Negative Negative PCR and COVID PCR test result pending documented in this encounter Plan of Treatment Not on file documented as of this encounter Procedures Procedure Name Priority Date/Time Associated Diagnosis Comments COVID-19 VIRUS (CORONAVIRUS) BY PCR STAT 11/26/2022 3:39 PM CDT Sore throat Fever in adult STREPTOCOCCUS A RAPID SCREEN W REFELX TO PCR Routine 11/26/2022 3:39 PM CDT Sore throat Fever in adult GROUP A STREPTOCOCCUS PCR THROAT SWAB Routine 11/26/2022 3:39 PM CDT Sore throat Fever in adult documented in this encounter Results * Group A Streptococcus PCR Throat Swab (11/26/2022 3:39 PM CDT) Group A strep by PCR Not Detected Not Detected 11/27/2022 3:41 PM CDT [facility] Swab STRUCTURE OF ANTERIOR PORTION OF NECK / Unknown Non-blood Collection / Unknown 11/26/2022 3:39 PM CDT 11/26/2022 3:48 PM CDT Narrative [facility] - 11/27/2022 3:41 PM CDT The Xpert Xpress Strep A test, performed on the [employer], is a rapid, qualitative in vitro diagnostic test for the detection of Streptococcus pyogenes (Group A ? - hemolytic Streptococcus, Strep A) in throat swab specimens from patients with signs and symptoms of pharyngitis. The Xpert Xpress Strep A test can be used as an aid in the diagnosis of Group A Streptococcal pharyngitis. The assay is not intended to monitor treatment for Group A Streptococcus infections. The Xpert Xpress Strep A test utilizes an automated real-time polymerase chain reaction (PCR) to detect Streptococcus pyogenes DNA. Santos Alegria PA-C LAB - MICRO GENERAL ORDERABLES [facility]. [facility] Di[facility] Lab [address] [facility] [place] [address], [facility] [phone] * Symptomatic COVID-19 Virus (Coronavirus) by PCR Nose (11/26/2022 3:39 PM CDT) SARS CoV2 PCR Negative Negative 11/27/2022 3:38 PM CDT [facility] Comment:NEGATIVE: SARS-CoV-2 (COVID-19) RNA not detected, presumed negative. Swab NASAL STRUCTURE / Unknown Non-blood Collection / Unknown 11/26/2022 3:39 PM CDT 11/26/2022 3:39 PM CDT Narrative [facility] - 11/27/2022 3:38 PM CDT Testing was performed using the Xpert Xpress SARS-CoV-2 Assay on the [employer] Systems. Additional information about this Emergency Use Authorization (EUA) assay can be found via the Lab Guide. This test should be ordered for the detection of SARS-CoV-2 in individuals who meet SARS-CoV-2 clinical and/or epidemiological criteria as well as from individuals without symptoms or other reasons to suspect COVID-19. Test performance for asymptomatic patients has only been established in anterior nasal swab specimens. This test is for in vitro diagnostic use under the FDA EUA for laboratories certified under CLIA to perform high complexity testing. This test has not been FDA cleared or approved. A negative result does not rule out the presence of PCR inhibitors in the specimen or target RNA concentration below the limit of detection for the assay. The possibility of a false negative should be considered if the patient's recent exposure or clinical presentation suggests COVID-19. This test was validated by [facility]. These Laboratories are certified under the Clinical Laboratory Improvement Amendments (CLIA) as qualified to perform high complexity testing. Santos Alegria PA-C LAB - MICRO GENERAL ORDERABLES [facility] Inf. Diseases Diag. Lab [address] [facility] [place] [address], [place] [phone] * Streptococcus A Rapid Screen w/Reflex to PCR - Clinic Collect (11/26/2022 3:39 PM CDT) Group A Strep antigen Negative Negative 11/26/2022 3:48 PM CDT [facility] Swab STRUCTURE OF ANTERIOR PORTION OF NECK / Unknown Non-blood Collection / Unknown 11/26/2022 3:39 PM CDT 11/26/2022 3:39 PM CDT Santos Alegria PA-C LAB - MICRO GENERAL ORDERABLES [facility] [address] [place] [address], [facility] [phone] documented in this encounter Visit Diagnoses Diagnosis Viral URI with cough- Primary Acute upper respiratory infections of unspecified site Fever in adult Type 2 diabetes mellitus with complication, without long-term current use of insulin (H) Nasal congestion Other diseases of nasal cavity and sinuses Sore throat Acute pharyngitis Generalized body aches Generalized headache Headache documented in this encounter Administered Medications Inactive Administered Medications - up to 3 most recent administrations Medication Order MAR Action Action Date Dose Rate Site acetaminophen (TYLENOL) tablet 650 mg 650 mg, Oral, ONCE, On 11/26/22 at 1530, For 1 dose, Maximum acetaminophen dose from all sources = 75 mg/kg/day not to exceed 4 grams/day. $Given 11/26/2022 3:29 PM CDT 650 mg documented in this encounter Additional Health Concerns Assessment Noted Time PHQ-9 Depression Total Score: 7 11/11/19 21 1:31 PM CDT documented as of this encounter Care Teams Jig Worker Relationship Specialty Start Date End Date Sudha Greene NP [address] [address] PCP - General 11/01/22 Noreen Flores APRN BOTTOM FILLER [address] [facility] [place] [address] Assigned PCP 08/05/22 03/16/23 Agatha Null DPM, Podiatry/Foot and Ankle Surgery [address] [place] [address] Assigned Musculoskeletal Provider 11/04/22 documented as of this encounter
--- OUTSIDE RECORDS SUMMARY | 2023-07-02 13:26 | XMS_ITS | Encounter Summary ---
Author Name Unknown Organization [facility] Address [address] [place] [address] Care Team Providers Care Lap Maker Name Role Phone Noreen Flores APRN TUBE COREMAKER Unavailable Sudha Greene NP Primary Care Provider Agatha Null DPM, Podiatry /Foot and Ankle Surgery Unavailable Encounter Details Date Type Department Care Team (Latest Contact Info) Description 11/16/2022 Travel Social History Tobacco Use Types Packs/Day [...] Friends and Family Patient declined 08/08/2019 Attends [facility] Patient declined 07/13 Active Member of [...] Answer Date Recorded PHQ-2 Score 0 11/10/2020 [facility] [place] of Occupat ional Health - Occupational Stress [...] suspected to have Coronavirus/COVID-19? No / Unsure 11/16/2022 11:53 AM CDT documented as of this encounter Plan of Treatment Not on file documented as of this encounter Visit Diagnoses Not on filedocumented in this encounter Additional Health Concerns Assessment Noted Time PHQ-9 Depression Total Score: 7 11/11/19 21 1:31 PM CDT documented as of this encounter Care Teams Lap Maker Relationship Specialty Start Date End Date Sudha Greene NP [facility] [address] [place] [address] PCP - General 11/01/22 Noreen Flores APRN TUBE COREMAKER [address] [place] [address] [place] [address] Assigned PCP 08/05/22 03/16/23 Agatha Null DPM, Podiatry/Foot and Ankle Surgery [address] [place] [address] [place] [id number] Assigned Musculoskeletal Provider 11/04/22 documented as of this encounter
--- OUTSIDE RECORDS SUMMARY | 2023-07-02 13:26 | XMS_ITS | Encounter Summary ---
Author Name Unknown Organization [facility] Address [address] [place] [address] Care Team Providers Care Community Planning Technician Name Role Phone Noreen Flores ROLLWAY WORKER MANAGER TREASURY Unavailable Sudha Greene INTERNATIONAL PROJECT ENGINEER Primary Care Provider [phone] Agatha Null DPM, Podiatry /Foot and Ankle Surgery Unavailable Reason for Visit * Diagnostic Imaging XR (Routine) - Closed Specialty Diagnoses / Procedures Referred By Contpaige t Referred To Contact Radiology. Diagnoses Right foot pain Arthritis of right foot Peroneal tendonitis, right Procedures XR Joint Injection Intermed Right Agatha Null DPM, Podiatry/Foot and Ankle Surgery [id number] [place] [address] [facility] [id number] [facility] [address] [place] [address] Referral ID Status Reason Start Date Expiration Date Visits Re quested Visits Authorized Closed 11/30/2022 11/30/2023 1 1 Encounter Details Date Type Department Care Team (Latest Contact Info) Description 12/13/2022 12:28 PM CDT - 12/13/2022 11:59 PM CDT Hospital Encounter [facility] [address] [place] [address] Agatha Null DPM, Podiatry/Foot and Ankle Surgery [address] [place] [address] Right foot pain; Arthritis of right foot; Peroneal tendonitis, right Discharge Disposition: Home or Self Care Social [...] Friends and Family Patient declined 08/08/2019 Attends [employer] Patient declined 07/13 Active Member of [...] Answer Date Recorded PHQ-2 Score 0 11/10/2020 [facility] of Occupat ional Health - Occupational Stress [...] Recorded In the last 10 days, have natalya epps been in contact with someone who was confirmed or suspected to have Coronavirus/COVID-19? No / Unsure 12/13/2022 12:26 PM CDT documented as of this encounter Last Filed Vital Signs Vital Sign Reading Time Taken Comments Blood Pressure 135/68 12/13/2022 12:44 PM CDT Pulse 73 12/13/2022 12:44 PM CDT Temperature - - Respiratory Rate - - Oxygen Saturation - - Inhaled Oxygen Concentration - - Weight - - Height - - Body Mass Index - - documented in this encounter Medications at Time of Discharge Medication Sig Dispensed Refills Start Date End Date JAY/ARB NOT PRESCRIBED, INTENTIONAL,Indicatio ns:Type 2 diabetes, HbA1c goal < 7% (H),Hypertension [...] 04/11/2014 blood glucose (NO BRAND SPECIFIED) lancets standardIndications:T ype 2 diabetes, HbA1c goal < 7% (H) Use to test blood sugar 2 times daily or as directed. 100 each 11 06/16/2020 blood glucose (NO BRAND SPECIFIED) test stripIndications:Type 2 diabetes, HbA1c goal < 7% (H) Use to test blood sugar 2 times daily or as directed. 1 [address] 11 06/16/2020 DULoxetine (CYMBALTA) 30 MG capsuleIndications:Fi bromyalgia TAKE 1 CAPSULE BY MOUTH EVERY DAY 90 capsule 1 01/20/2021 fluticasone (FLONASE) 50 MCG/ACT nasal sprayIndications:George rgic rhinitis, unspecified seasonality, unspecified trigger Mccausland 1-2 sprays into both nostrils daily 16 g 11 08/08/2019 metFORMIN (GLUCOPHAGE) 500 MG tabletIndications:Typ e 2 diabetes mellitus with complication, without long-term current use of insulin (H) TAKE 2 TABLETS BY MOUTH 2 TIMES DAILY (WITH MEALS) 360 tablet 0 06/18/2020 simvastatin (ZOCOR) 20 MG tabletIndications:Hyp erlipidemia LDL goal <100,Type 2 diabetes mellitus with complication, without long-term current use of insulin (H) Take 1 tab daily 90 tablet 3 08/08/2019 SUMAtriptan (IMITREX) 25 MG tabletIndications:Ish gaona without status migrainosus, not intractable, unspecified migraine type TAKE 1 TO 2 TABLETS BY MOUTH ONCE FOR MIGRAINE. OK TO REPEAT X 1 AFTER 2HOURS. MAX 12TAB/25DAYS INS 12 tablet 8 07/13/2020 zolpidem (AMBIEN) 5 MG tabletIndications:Per sistent insomnia Take 1 tab nightly 30 tablet 5 09/26/2020 ASPIRIN PO Take 81 mg by mouth daily. 0 02/19/2023 [facility]GY RELIEF-D 10-240 MG 24 hr tabletIndications:Chr onic seasonal allergic rhinitis TAKE 1 TABLET BY MOUTH EVERY DAY 90 tablet 11 01/07/2021 02/19/2023 IBUPROFEN PO Take 800 mg by mouth daily as needed for moderate pain 0 02/19/2023 naproxen (NAPROSYN) 500 MG tabletIndications:Wisam yarthralgia Take 1 tablet (500 mg) by mouth 2 times daily (with meals) 60 tablet 3 11/16/2020 02/19/2023 omeprazole (PRILOSEC) [address] capsuleIndications:Ga stroesophageal reflux disease without esophagitis TAKE 2 CAPSULES BY MOUTH EVERY DAY 180 capsule 0 08/08/2021 02/19/2023 topiramate (TOPAMAX) 50 MG tabletIndications:Ish gaona without status migrainosus, not intractable, unspecified migraine type,Morbid obesity (H) Take 1 tablet (50 mg) by mouth 2 times daily Take 1 tab by mouth 2 times daily 180 tablet 3 10/11/2020 02/19/2023 documented as of this encounter Progress Notes * Matt Rao PA-C - 12/13/2022 1:16 PM CDT RADIOLOGY PROCEDURE NOTE Patient name: Megan Choi : 1965 Pre-procedure diagnosis: Right naviculocuneiform and right sinus tarsi Post-procedure diagnosis: Same Procedure Date/Time: December 13, 2022 1:16 PM Procedure: Right naviculocuneiform and right sinus tarsi joint steroid injection Estimated blood loss: None Specimen(s) collected with description: none The patient tolerated the procedure well with no immediate complications. Significant findings:none See imaging dictation for procedural details. Provider name: Matt Rao PA-C Metal Pickling Equipment Operator(s):None * Heron Moeller RN - 12/13/2022 12:31 PM CDT Pt was in Radiology today for a right naviculocuneiform and sinus tarsi joint steroid injections. Pt tolerated ortho procedure well. Pre procedure pain was 5/10 post procedure pain level 2/10. Procedure was completed by Marilin RICHARDSON. There were no complications during this procedure. Pt verbalized understanding of written and verbal instructions and left department in stable and satisfactory condition with . There is no evidence of bleeding or any other complications upon discharge. documented in this encounter Plan of Treatment Not on file documented as of this encounter Procedures Procedure Name Priority Date/Time Associated Diagnosis Comments XR JOINT INJECTION INTERMED RIGHT Routine 12/13/2022 1:23 PM CDT Right foot pain Arthritis of right foot Peroneal tendonitis, right documented in this encounter Results * XR Joint Injection [...] Long-term results pending. MATT RAO PA-C Agatha Null DPM, Podiatry/Foot and Ank le Surgery IMG DIAGNOSTIC IMAGING ORDERABLES documented in this encounter Visit Diagnoses Diagnosis Right foot pain Pain in limb Arthritis of right foot Unspecified arthropathy, ankle and foot Peroneal tendonitis, right documented in this encounter Administered Medications Inactive Administered Medications - up to 3 most recent administrations Medication Order MAR Action Action Date Dose Rate Site bupivacaine (MARCAINE) 0.5% preservative free injection 5 mg (1 mL), Intradermal, ONCE, On Sun12/13/22 at 1330, For 1 dose $Given by Other 12/13/2022 1:25 PM CDT 10 mg bupivacaine (PF) (MARCAINE) 0.5 % injection Starting on Sun12/13/22 at 1247, For 1 dose, Heron Moeller: nancyinet override iopamidol (ISOVUE-M 200) solution 10 mL 10 mL, INTRA-ARTICULAR, ONCE, On Sun12/13/22 at 1330, For 1 dose $Given by Other 12/13/2022 1:24 PM CDT 0.5 mLs lidocaine (PF) (XYLOCAINE) 1 % injection 5 mL 5 mL, Subcutaneous, ONCE, On Sun12/13/22 at 1330, For 1 dose $Given by Other 12/13/2022 1:24 PM CDT 3 mLs lidocaine (PF) (XYLOCAINE) 1 % injection Starting on Sun12/13/22 at 1247, For 1 dose, Heron Moeller: cabinet override triamcinolone (KENALOG-40) 40 MG/ML injection Starting on Sun12/13/22 at 1247, For 1 dose, Heron Moeller: cabinet override triamcinolone (KENALOG-40) injection 40 mg 40 mg, INTRA-ARTICULAR, ONCE, On Sun12/13/22 at 1330, For 1 dose $Given by Other 12/13/2022 1:25 PM CDT 40 mg documented in this encounter Additional Health Concerns Assessment Noted Time PHQ-9 Depression Total Score: 7 11/11/19 21 1:31 PM CDT documented as of this encounter Care Teams Community Planning Technician Relationship Specialty Start Date End Date Sudha Greene NP [address] [address] PCP - General 11/01/22 Noreen Flores APRN MANAGER TREASURY [address] [facility] [place] [address] Assigned PCP 08/05/22 03/16/23 Agatha Null DPM, Podiatry/Foot and Ankle Surgery [address] [place] [address] Assigned Musculoskeletal Provider 11/04/22 documented as of this encounter
--- OUTSIDE RECORDS SUMMARY | 2023-07-02 13:26 | XMS_ITS | Encounter Summary ---
Author Name Unknown Organization [facility] Address [address] [place] [address] Care Team Providers Care Operating Room Surgical Technologist Name Role Phone Noreen Flores APRN BRUSHER TENDER Unavailable Sudha Greene CONTRACT PROGRAMMER Primary Care Provider Agatha Null DPM, Podiatry /Foot and Ankle Surgery Unavailable Encounter Details Date Type Department Care Team (Latest Contact Info) Description 11/26/2022 Travel Social History Tobacco Use Types Packs/Day [...] Answer Date Recorded PHQ-2 Score 0 11/10/2020 [facility] [place] of Occupat ional Health - Occupational Stress [...] Last Indicated Resolved Time Rule Out COVID-19 11/26/2022 11/26/2022 11/27/2022 3:38 PM CDT Assessment Noted Time PHQ-9 Depression Total Score: 7 11/11/19 21 1:31 PM CDT documented as of this encounter Care Teams Operating Room Surgical Technologist Relationship Specialty Start Date End Date Sudha Greene NP [address] [place] [address] PCP - General 11/01/22 Noreen Flores APRN BRUSHER TENDER [address] [facility] [place] [address] Assigned PCP 08/05/22 03/16/23 Agatha Null DPM, Podiatry/Foot and Ankle Surgery [address] [place] [address] Assigned Musculoskeletal Provider 11/04/22 documented as of this encounter
--- OUTSIDE RECORDS SUMMARY | 2023-07-02 13:26 | XMS_ITS | Encounter Summary ---
Author Name Unknown Organization [facility] Address [address] [place] [address] Care Team Providers Care National Sales Name Role Phone Noreen Flores APRN LAST MODEL DEPARTMENT SUPERVISOR Unavailable Sudha Greene NP Primary Care Provider Agatha Null DPM, Podiatry /Foot and Ankle Surgery Unavailable Encounter Details Date Type Department Care Team (Late st Contact Info) Description 12/08/2022 Telephone [facility] [address] [place] [address] [place] [address] Heron Moeller RN Social History Tobacco Use Types Packs/Day Years [...] Friends and Family Patient declined 08/08/2019 Attends [employer] [facility] Patient declined 07/13 Active Member of [...] Answer Date Recorded PHQ-2 Score 0 11/10/2020 [facility] of Occupat ional Health - Occupational [...] encounter Miscellaneous Notes * Telephone Encounter - Heron Moeller RN - 12/08/2022 12:19 PM CDT Call placed to pt to review upcoming procedure, medications, allergies and instructions for injection. No answer, LM to call if questions documented in this encounter Plan of Treatment Not on file documented as of this encounter Visit Diagnoses Not on filedocumented in this encounter Additional Health Concerns Assessment Noted Time PHQ-9 Depression Total Score: 7 11/11/19 21 1:31 PM CDT documented as of this encounter Care Teams National Sales Relationship Specialty Start Date End Date Sudha Greene NP [address] [address] PCP - General 11/01/22 Noreen Flores APRN LAST MODEL DEPARTMENT SUPERVISOR [address] [facility] [place] [address] Assigned PCP 08/05/22 03/16/23 Agatha Null DPM, Podiatry/Foot and Ankle Surgery [address] [place] [address] Assigned Musculoskeletal Provider 11/04/22 documented as of this encounter
--- OUTSIDE RECORDS SUMMARY | 2023-07-02 13:26 | XMS_ITS | Encounter Summary ---
Author Name Unknown Organization [facility] Address [address] [place] [id number] Care Team Providers Care Brinell Tester Name Role Phone Noreen Flores APRN BLENDER OPERATOR Unavailable Sudha Greene NP Primary Care Provider [phone] Agatha Null DPM, Podiatry /Foot and Ankle Surgery Unavailable Reason for Visit * Reason Comments Musculoskeletal Problem Right foot follo w up- starting to feel the pain on top of foot and side Encounter Details Date Type Department Care Team (Late st Contact Info) Description 01/04/2023 10:15 AM CDT Office Visit [facility] Podiatry [address] [place], [place] [id number] Agatha Null DPM, Podiatry/Foot and Ankle Surgery [id number] [place] [address] Right foot pain (Primary Dx); Peroneal tendonitis, right; Sinus tarsitis, right; Moran's neuroma, right Social History Tobacco Use Types Packs/Day [...] Answer Date Recorded PHQ-2 Score 0 11/10/2020 [facility] - Occupational Stress [...] Sign Reading Time Taken Comments Blood Pressure 128/82 01/04/2023 10:00 AM CDT Pulse - - Temperature - - Respiratory Rate - - Oxygen Saturation - - Inhaled Oxygen Concentration - - Weight 83.9 kg (185 lb) 01/04/2023 10:00 AM CDT Height - - Body Mass Index 33.84 11/01/2022 9:47 AM CDT documented in this encounter Patient Instructions * Patient Instructions* Dafne Guerrero MA - 01/04/2023 10:15 AM CDT Thank you for choosing [facility] Podiatry / Foot & Ankle Surgery! [facility] CL[facility]: [facility] [address] [place] [address] TRIAGE LINE: [phone] APPOINTMENTS: [phone] RADIOLOGY: [phone] SET UP SURGERY: [phone] PHYSICAL THERAPY: [phone] FAX NUMBER: [phone] BILLING QUESTIONS: [phone] Follow up: Surgery GETTING READY FOR YOUR SURGERY ONE-THREE WEEKS BEFORE 1. See your Family Doctor or Primary Care Doctor for a History and Physical. If you do not, we may need to change the date of your surgery. 2. Please see pre-surgical medications below to which medications need to be stopped before surgeryand when. TEN OR MORE DAYS BEFORE 1. Morrice with the hospital. (For [facility]) By . By Internet: [email or web address]. Choose [facility]. If you do not register by phone or online, we will call to help you register. SAME DAY SURGERY PATIENTS 1. You will need a family member of friend to drive you home. If you do not have one the surgery will be cancelled or rescheduled. 2. You will need a responsible adult to stay with you that night after the surgery. We will ask this person to listen to some instructions before you leave the hospital. * If your child is having surgery, and you would like a tour of the hospital, please call: [phone]. DAY BEFORE SURGERY 1. DO NOT EAT OR DRINK ANYTHING AFTER MIDNIGHT THE NIGHT BEFORE YOUR SURGERY! 2. DO NOT DRINK ALCOHOL. 3. Do not take over the counter drugs. 4. Some people need to have blood tests at the hospital. If you need blood tests, we will tell you in advance. 5. Take medications as directed by your doctor. You may take these with a small amount of water. 6. Do not chew gum, chew tobacco, or suck on hard candy the day of surgery. 7. Bring your insurance cards, a list of your medicines and co-pays you might need. Leave jewelry and other valuables at home. 8. If you received papers at your doctor's office, bring these with you to the surgery. If you have questions about these instructions, please call: [phone] Ask to speak with a pre-admitting nurse. PRESURGICAL MEDICATIONS: Certain prescription, [id number], and herbal medications interfere with healing after an operation. The main concern relates to medications that increase bleeding at the surgical site. Excess blood under the incision results in poor wound healing, excess pain, increased scarring, and a higherrisk of infection. Some medications slow the healing process of bone. Medications can also interfere with the anesthesia drugs that keep you asleep during the operation. It is important to ensure that these medicationsare out of your system prior to the operation. The list below details a number of medications that are of concern. Pay special attention to how long you should avoid these medications before your operation. Please note that this list is not complete. You should ask your surgeon or pharmacist if youare uncertain about other medications. Any herbal supplement not listed should be discontinued at least one week prior to surgery. Aspirin: Hold for one week prior to surgery and restart the day after surgery. This over the counter medication promotes bleeding. Motrin / Ibuprofen / Aleve / Advil / NSAIDS: Stop one week prior to surgery. These medications affect bleeding and may cause delay in bone healing. Avoid taking these medications for six weeks after bone surgeries. Other procedures may allow you to restart sooner than 6 weeks after surgery. Coumadin / Plavix: Your primary care provider will manage Coumadin in relation to surgery. Coumadinmay result in excessive bleeding and may be adjusted before and after surgery. Enbriel: Stop two weeks prior to surgery and restart two weeks after surgery. This medication can effect soft tissue healing and increases the risk of infection. Remicade: Stop 8-12 weeks before surgery and restart two weeks after surgery. This medication can affect soft tissue healing and increases the risk of infection. Humira: Stop 4 weeks before surgery and restart two weeks after surgery. This medication can affectsoft tissue healing and increases the risk of infection. Methotrexate: Stop one dose prior to surgery. This medication will be restarted when the wound appears to be healing well. Please ask your surgeon about restarting this medication when you are being seen in the office for wound checks. Kava: Stop at least one day prior to surgery and may restart one day after surgery. Kava may increase the sedative effect of anesthetics that are given during the operation. Kava can also increase bleeding at the surgical site. Ephedra (ma bajwa): Stop at least one day prior to surgery and may restart one day after surgery. Ephedra may increase the risk of heart attack and stroke. This medication can also increase bleeding at the surgical site. Liliya's Wort: Stop at least five days before surgery and may restart one day after surgery. [place]'s wort may diminish the effects of several drugs that are given during surgery. Ginseng: Stop at least one week prior to surgery and may restart one day after surgery. Ginseng lowers blood sugar and may increase bleeding at the surgical site. Ginkgo: Stop 36 hours before surgery and may restart one day after surgery. Ginkgo may increase bleeding at the surgical site. Garlic: Stop at least one week prior to surgery and may restart one day after. Garlic may increase bleeding at the surgery site. Valerian: Do a slow steady decrease in your daily dose over a period of 2-3 weeks before surgery todecrease the chance of withdrawal symptoms. Valerian may increase the sedative effect of anesthetics given during the operation. Echinacea: There is no data on stopping echinacea prior to surgery. This medication though can be associated with allergic reactions and suppression of your immune system. Vitamin E, Clute-3, Flax, Fish Oil, Glucosamine and Chondroitin: Stop 2 weeks prior to surgery and may restart one day after. These herbal medications can increase risk of bleeding at surgical site. POST OPERATIVE HOME CARE INSTRUCTIONS Activities: You should rest today. Stay off your feet as much as possible and keep your foot elevated above the level of your heart (about two pillow height). Wear your surgical shoe at all times when up. Limit walking to 5 to 10 minutes per hour over the next few days if your doctor has previouslytold you that you can put some weight on the foot after surgery, although limit the weight to your heel. If you are supposed to be non-weight bearing, that means NO WEIGHT AT ALL ON THE FOOT. Use an ice pack on the ankle while awake 20 minutes per hour to help decrease pain and swelling. Discomfort: If a prescription for pain was given, take as directed. If no pain medication was ordered, you may take a non-prescription, non-aspirin pain medication. If the pain is not relieved by pain medication, call the clinic. Incision and Dressing: Your surgical dressing is a sterile dressing and should be left in place until removed by your physician. Keep the dressing dry by covering it with a plastic bag for showers, taking baths with the surgical foot out of the tub, or sponge bathing. Some bleeding on the dressing should be expected. If however, you notice active or excessive bleeding or a temperature over 100 degrees by mouth, call the clinic. Do not change dressing by yourself. If the dressing becomes wet or dirty, please call the clinic as it may need a new sterile dressing applied. You may start getting the foot wet after the stitches are removed. Do not wear regular shoes with a surgical bandage and/or external pins in your foot. Wear loose fitting clothing that easily will slip over the bandage and/or pins. Do not cover your surgical foot with blankets as they may damage the dressing/pins. Also, remember that dogs are not aware of your surgery. Please keep them away from the bandage/pins. If your surgeon places external pins in your foot, you must keep the foot dry until the pins are removed at 6-8 weeks after the surgery. Pins should be covered with a dressing for protection. You should examine the pins and your skin often. Check for any spreading redness or yellow drainage from the pin areas. Do not apply ointment around the pins. Do not push a loose pin back into your foot. Please call the clinic if the pin is spinning or moving in and out. If the pins are bumped or loosened they may need to be removed early. This may affect your surgical outcome. Please call the clinic if you feel there is a problem with your pins and/or surgical bandage. TIPS FOR SUCCESSFUL HEALING How you care for the surgical site is critically important to achieve a successful result after surgery. Avoidance of injury, infection, excess swelling, scar tissue and stiffness are highly dependent on the care you provide over the next six weeks. Please do not hesitate to call if you have questions or concerns. Your foot requires significant rest and elevation. Sitting for long hours with your foot elevated, however, will create its own problems. Expect muscle aches, back pain, cramps, etc. Optimal posture,lumbar support, back exercises, ice and heat may all help with your new aches and pains. Do not apply a heating pad to your foot or leg as this can cause increase swelling and pain. Rather use ice in those areas. Pain medications cause drowsiness. You may frequently sleep during the day and then have trouble sleeping at night. Over the counter sleep aids might be more effective than narcotic pain medication to achieve a reasonable night's sleep. Narcotic pain medications and inactivity lead to constipation. Limiting use of narcotics will help minimize this problem. The pain medications will not completely alleviate your pain. The purpose of pain pills is to take the edge off and help you get through the first few days. You can substitute Extra Strength Tylenol if pain is mild. Please note that narcotic pain pills usually contain acetaminophen (the active ingredient in Tylenol) so be careful to avoid the maximum dose of acetaminophen. You should take measures to avoid constipation by drinking plenty of water, eating lots of fruit and vegetables and taking the recommended dose of Metamucil or a similar fiber supplement. These measures should be continued for as long as you require narcotic pain medications and are inactive. Showering is a major challenge. Your incision requires about three days to become sealed from water. Your bandage should not get wet and should not be removed. Do not attempt showering for the first three days. A sponge bath is preferred. You may attempt to shower on the fourth day after the operation. Your foot should be covered with a bag, tape and rubber bands. Double bagging is preferred. Standing in the shower with a bag on your foot is quite hazardous. A portable shower stool would be ideal. The bandage will need to be changed in the office if it becomes moistened. A moist bandage will not dry on its own. A moist dressing may lead to infection. Stiffness will develop after any operation due to scarring. The scar tissue begins to form immediately after the surgery. Inactivity can cause excess stiffness and may lead to blood clots in your legs. Frequent range of motion exercises will help decrease stiffness, blood clots, scar tissue and adhesions. Please call if you are unsure about these recommendations. Good luck and best wishes on a prompt recovery. Healing is slow but an important step in your recovery. You are in control of the final result. Please use this time wisely. Please do not hesitate to call if you have questions, concerns or comments. * If you have any post-operative questions or concerns regarding your procedure, call our triage team at the [facility] at [phone]. GETTING READY FOR YOUR SURGERY ONE-THREE WEEKS BEFORE 1. See your Family Doctor or Primary Care Doctor for a History and Physical. If you do not, we may need to change the date of your surgery. 2. Please see pre-surgical medications below to which medications need to be stopped before surgeryand when. TEN OR MORE DAYS BEFORE 1. Morrice with the hospital. (For [facility]) By . By Internet: [email or web address]. Choose [facility]. If you do not register by phone or online, we will call to help you register. SAME DAY SURGERY PATIENTS 1. You will need a family member of friend to drive you home. If you do not have one the surgery will be cancelled or rescheduled. 2. You will need a responsible adult to stay with you that night after the surgery. We will ask this person to listen to some instructions before you leave the hospital. * If your child is having surgery, and you would like a tour of the hospital, please call: [phone]. DAY BEFORE SURGERY 1. DO NOT EAT OR DRINK ANYTHING AFTER MIDNIGHT THE NIGHT BEFORE YOUR SURGERY! 2. DO NOT DRINK ALCOHOL. 3. Do not take over the counter drugs. 4. Some people need to have blood tests at the hospital. If you need blood tests, we will tell you in advance. 5. Take medications as directed by your doctor. You may take these with a small amount of water. 6. Do not chew gum, chew tobacco, or suck on hard candy the day of surgery. 7. Bring your insurance cards, a list of your medicines and co-pays you might need. Leave jewelry and other valuables at home. 8. If you received papers at your doctor's office, bring these with you to the surgery. If you have questions about these instructions, please call: [phone] Ask to speak with a pre-admitting nurse. PRESURGICAL MEDICATIONS: Certain prescription, [id number], and herbal medications interfere with healing after an operation. The main concern relates to medications that increase bleeding at the surgical site. Excess blood under the incision results in poor wound healing, excess pain, increased scarring, and a higherrisk of infection. Some medications slow the healing process of bone. Medications can also interfere with the anesthesia drugs that keep you asleep during the operation. It is important to ensure that these medicationsare out of your system prior to the operation. The list below details a number of medications that are of concern. Pay special attention to how long you should avoid these medications before your operation. Please note that this list is not complete. You should ask your surgeon or pharmacist if youare uncertain about other medications. Any herbal supplement not listed should be discontinued at least one week prior to surgery. Aspirin: Hold for one week prior to surgery and restart the day after surgery. This over the counter medication promotes bleeding. Motrin / Ibuprofen / Aleve / Advil / NSAIDS: Stop one week prior to surgery. These medications affect bleeding and may cause delay in bone healing. Avoid taking these medications for six weeks after bone surgeries. Other procedures may allow you to restart sooner than 6 weeks after surgery. Coumadin / Plavix: Your primary care provider will manage Coumadin in relation to surgery. Coumadinmay result in excessive bleeding and may be adjusted before and after surgery. Enbriel: Stop two weeks prior to surgery and restart two weeks after surgery. This medication can effect soft tissue healing and increases the risk of infection. Remicade: Stop 8-12 weeks before surgery and restart two weeks after surgery. This medication can affect soft tissue healing and increases the risk of infection. Humira: Stop 4 weeks before surgery and restart two weeks after surgery. This medication can affectsoft tissue healing and increases the risk of infection. Methotrexate: Stop one dose prior to surgery. This medication will be restarted when the wound appears to be healing well. Please ask your surgeon about restarting this medication when you are being seen in the office for wound checks. Kava: Stop at least one day prior to surgery and may restart one day after surgery. Kava may increase the sedative effect of anesthetics that are given during the operation. Kava can also increase bleeding at the surgical site. Ephedra (ma bajwa): Stop at least one day prior to surgery and may restart one day after surgery. Ephedra may increase the risk of heart attack and stroke. This medication can also increase bleeding at the surgical site. [place]'s Wort: Stop at least five days before surgery and may restart one day after surgery. [place]'s wort may diminish the effects of several drugs that are given during surgery. Ginseng: Stop at least one week prior to surgery and may restart one day after surgery. Ginseng lowers blood sugar and may increase bleeding at the surgical site. Ginkgo: Stop 36 hours before surgery and may restart one day after surgery. Ginkgo may increase bleeding at the surgical site. Garlic: Stop at least one week prior to surgery and may restart one day after. Garlic may increase bleeding at the surgery site. Valerian: Do a slow steady decrease in your daily dose over a period of 2-3 weeks before surgery todecrease the chance of withdrawal symptoms. Valerian may increase the sedative effect of anesthetics given during the operation. Echinacea: There is no data on stopping echinacea prior to surgery. This medication though can be associated with allergic reactions and suppression of your immune system. Vitamin E, Clute-3, Flax, Fish Oil, Glucosamine and Chondroitin: Stop 2 weeks prior to surgery and may restart one day after. These herbal medications can increase risk of bleeding at surgical site. POTENTIAL COMPLICATIONS OF FOOT & ANKLE SURGERY Undergoing a surgical procedure involves a certain amount of risk. Risks of complications vary depending on the complexity of the surgery and how you take care of the surgical area during the healingprocess. Complications can range from minor infection to . Some complications are temporary while others will be permanent. Your surgeon weighs the risk of complications vs the potential benefitof undergoing surgery. You need to consider your tolerance for unexpected problems as you decide whether to undergo surgery. Foot and Ankle surgery involves cutting skin, bone, ligaments, blood vessels and joints. These structures heal well but not without consequence. Any break to the skin can lead to infection. A deep infection involves bones or joints which can be devastating. Deep infection can [...] and tissues around the joint are cut, and laterrepaired. Scare tissue limits joint mobility. This can be permanent but generally improves over thecourse of one year. Surgery involves dissection around nerves. Visible nerves are moved out of the way while very smallnerves are cut. Scar tissue develops around nerves and can lead to nerve pain, numbness, or neuromas. Nerve symptoms can be permanent. This can lead to numbness or sometimes hypersensitivity to touchand problems wearing shoes. Bones do not always heal after surgery. Poor healing after a bone cut or joint fusion can lead to an extended period of casting or repeat surgery. Electronic bone stimulators are sometimes used to stimulate poor healing of bone. Nonunion is when joint fusion does not take. This can occur as often as 10% of the time. Smoking doubles your risk of poor bone healing to 20%. Bone grafting is sometimes necessary during the original or subsequent surgery. Bone is sometimes taken from other parts of your body or freeze dried bone from a bone bank from a bone bank or synthetic bone material might be used. A scar is always present after foot and ankle surgery. The scar will be visible and could be sensitive. Some people develop excessive scarring, which cannot be controlled by the surgeon. Scars can beunsightly and can restrict joint mobility. Blood clots can develop in the calf after surgery. Foot and ankle surgery is a predisposing factor for blood clots. The blood clot could break and travel to your lung. This condition can lead to . Early warning signs could include calf swelling and pain, chest pain or shortness of breath. Thisis an emergency that requires immediate attention by a medical doctor! Surgery will not necessarily create a pain-free foot. Even normal feet hurt. Crooked toes, bunions,neuromas, flat feet and arthritis should all be considered permanent conditions. Ankle pain commonly requires multiple surgeries over a lifetime. Do not assume that having surgery will permanently fix your condition. You may need permanent alteration in shoes and activities to accommodate your footand ankle problem. Careful attention to post-operative recommendations will dramatically reduce your risk of complications. Proper dressing, wound care, elevation and rest will be essential to get the wound healed and minimize scarring. Strict attention to activity restrictions, such as non-weight bearing, or partialweight bearing is essential. Internal fixation devices may not resist the stress of walking. Some select surgeries allow the patient to walk, however this should be very minimal. Despite these concerns, foot and ankle surgery leads to a high level of patient satisfaction. Your surgeon would not recommend surgery if he/she did not expect your foot to improve. Talk to your surgeon about any of the above issues. POST OPERATIVE HOME CARE INSTRUCTIONS Activities: You should rest today. Stay off your feet as much as possible and keep your foot elevated above the level of your heart (about two pillow height). Wear your surgical shoe at all times when up. Limit walking to 5 to 10 minutes per hour over the next few days if your doctor has previouslytold you that you can put some weight on the foot after surgery, although limit the weight to your heel. If you are supposed to be non-weight bearing, that means NO WEIGHT AT ALL ON THE FOOT. Use an ice pack on the ankle while awake 20 minutes per hour to help decrease pain and swelling. Discomfort: If a prescription for pain was given, take as directed. If no pain medication was ordered, you may take a non-prescription, non-aspirin pain medication. If the pain is not relieved by pain medication, call the clinic. Incision and Dressing: Your surgical dressing is a sterile dressing and should be left in place until removed by your physician. Keep the dressing dry by covering it with a plastic bag for showers, taking baths with the surgical foot out of the tub, or sponge bathing. Some bleeding on the dressing should be expected. If however, you notice active or excessive bleeding or a temperature over 100 degrees by mouth, call the clinic. Do not change dressing by yourself. If the dressing becomes wet or dirty, please call the clinic as it may need a new sterile dressing applied. You may start getting the foot wet after the stitches are removed. Do not wear regular shoes with a surgical bandage and/or external pins in your foot. Wear loose fitting clothing that easily will slip over the bandage and/or pins. Do not cover your surgical foot with blankets as they may damage the dressing/pins. Also, remember that dogs are not aware of your surgery. Please keep them away from the bandage/pins. If your surgeon places external pins in your foot, you must keep the foot dry until the pins are removed at 6-8 weeks after the surgery. Pins should be covered with a dressing for protection. You should examine the pins and your skin often. Check for any spreading redness or yellow drainage from the pin areas. Do not apply ointment around the pins. Do not push a loose pin back into your foot. Please call the clinic if the pin is spinning or moving in and out. If the pins are bumped or loosened they may need to be removed early. This may affect your surgical outcome. Please call the clinic if you feel there is a problem with your pins and/or surgical bandage. TIPS FOR SUCCESSFUL HEALING How you care for the surgical site is critically important to achieve a successful result after surgery. Avoidance of injury, infection, excess swelling, scar tissue and stiffness are highly dependent on the care you provide over the next six weeks. Please do not hesitate to call if you have questions or concerns. Your foot requires significant rest and elevation. Sitting for long hours with your foot elevated, however, will create its own problems. Expect muscle aches, back pain, cramps, etc. Optimal posture,lumbar support, back exercises, ice and heat may all help with your new aches and pains. Do not apply a heating pad to your foot or leg as this can cause increase swelling and pain. Rather use ice in those areas. Pain medications cause drowsiness. You may frequently sleep during the day and then have trouble sleeping at night. Over the counter sleep aids might be more effective than narcotic pain medication to achieve a reasonable night's sleep. Narcotic pain medications and inactivity lead to constipation. Limiting use of narcotics will help minimize this problem. The pain medications will not completely alleviate your pain. The purpose of pain pills is to take the edge off and help you get through the first few days. You can substitute Extra Strength Tylenol if pain is mild. Please note that narcotic pain pills usually contain acetaminophen (the active ingredient in Tylenol) so be careful to avoid the maximum dose of acetaminophen. You should take measures to avoid constipation by drinking plenty of water, eating lots of fruit and vegetables and taking the recommended dose of Metamucil or a similar fiber supplement. These measures should be continued for as long as you require narcotic pain medications and are inactive. Showering is a major challenge. Your incision requires about three days to become sealed from water. Your bandage should not get wet and should not be removed. Do not attempt showering for the first three days. A sponge bath is preferred. You may attempt to shower on the fourth day after the operation. Your foot should be covered with a bag, tape and rubber bands. Double bagging is preferred. Standing in the shower with a bag on your foot is quite hazardous. A portable shower stool would be ideal. The bandage will need to be changed in the office if it becomes moistened. A moist bandage will not dry on its own. A moist dressing may lead to infection. Stiffness will develop after any operation due to scarring. The scar tissue begins to form immediately after the surgery. Inactivity can cause excess stiffness and may lead to blood clots in your legs. Frequent range of motion exercises will help decrease stiffness, blood clots, scar tissue and adhesions. Please call if you are unsure about these recommendations. Good luck and best wishes on a prompt recovery. Healing is slow but an important step in your recovery. You are in control of the final result. Please use this time wisely. Please do not hesitate to call if you have questions, concerns or comments. * If you have any post-operative questions or concerns regarding your procedure, call our triage team at the [facility] at [phone] (option 4). MORAN'S NEUROMA Moran's neuroma is an enlargement or thickening of a nerve in the foot. It is also sometimes referred to as an intermetatarsal neuroma, interdigital neuroma, Moran's metatarsalgia (pain in the metatarsal head area), trell-neural fibrosis (scar tissue around a nerve) or entrapment neuropathy (abnormal nerve due to compression). A Moran's neuroma most commonly occurs in the third interspace between the third and fourth toes, followed by the second interspace between the second and third toes. Moran's neuromas have also occurred in the fourth and first interspaces, but these are rare. If you have a Moran's neuroma, there is a 15% chance it will occur bilaterally (on both feet). Moran's neuromas occur most commonly in women who are between 30 to 50 years old. The reason they are more common in women is thought to be due to the shoes women wear. CAUSES: A Moran's neuroma is thought to be caused by trauma to the nerve, but scientists are stillnot sure about the exact cause of the trauma. The trauma may be caused by the metatarsal heads, thedeep transverse intermetatarsal ligament (holds the metatarsal heads together) or an intermetatarsal bursa (fluid-filled sac). All of these structures can cause compression/trauma on the nerve which i nitially causes swelling and injury in the nerve. Over time if the compression/trauma continues, the nerve repairs itself with very fibrous tissue that leads to enlargement and thickening of the nerve. Other causes of trauma to the nerve may include; overpronation (foot rolls inward), hypermobility(too much motion), cavo varus (high arch foot) and excessive dorsiflexion (toes bend upward) of thetoes. These biomechanical (howthe foot moves) factors may [...] shoe and massaging your foot DIAGNOSIS: Your senior systems software engineer will ask many questions about your signs and symptoms and will perform aphysical exam. Some of the exams may include [...] and moving the toes up and down for30 seconds. This will usually cause pain or [...] box so they do not put pressure on your toes and metatarsals. Avoid wearing high heels because they cause increased pressure on the ball of your foot (forefoot). 2. Metatarsal Pads: These help to lift and separate the metatarsal heads to take pressure off of the nerve. They are placed just behind where you [...] have shown surgery has an 80-85% success rate.Will result in numbness PREVENTION -Avoid wearing narrow, pointed toe shoes, or high heels documented in this encounter Progress Notes * Agatha Null DPM, Podiatry/Foot and Ankle Surgery - 01/04/2023 10:15 AM CDT Associated Order(s): Small Joint Injection/Arthrocentesis: R third MTP Podiatry / Foot and Ankle Surgery Progress Note January 04, 2023 Subject: Patient was seen for follow-up after x-ray guided injections on the right foot. She notes that it has helped some with pain. She still has pain on the side where the tendon is. Also notes new pain across the ball of the foot. Would like to discuss surgery about the tendon more and the painto the ball of the foot. Pain is 6 out of 10. Objective: Vitals: Wt 83.9 kg (185 lb) LMP 10/30/2011 [...] on palpation of the sinus tarsi right foot and right 3rd intermetatarsal space. 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 5. Exam otherwise negative. 6. 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 ASSESSMENT: Right foot pain Peroneal tendonitis, right Sinus tarsitis, right Medical Decision Making/Plan: Reviewed patient's chart in [facility]. She notes that the top of her foot inside of her ankle are feeling a little bit better but she still has pain on the backside where thetendon is and now at the top lateral part of her foot. We discussed causes and treatments of neuromas. These included shoe gear, orthotics, metatarsal pads, cortisone injections, ice, physical therapy, and possible surgical removal. Patient would like to injection today for the neuroma. We also talked about proceeding with surgery for the peroneal tendon tear. Discussed it would be a same-day procedure under general anesthesia and she be nonweightbearing for 4 to 6 weeks and then minimal weightbearing in a boot for 4 to 6 weeks. Talked about risks including infection, numbness, continued pain, non union, recurrence, need for further surgery, blood loss, blood clotting. You will scar. Discussed that because is her right foot she would not be able to drive while in the boot. We will place an order for surgery and have my dairy technologist call her. She would likely need a knee roller after surgery to help keep pressure off of the foot. All questions were answered to patient's satisfaction and she will call further questions or concerns. Procedure: Small Joint Injection/Arthrocentesis: R third MTP Date/Time: 01/04/2023 10:28 AM Performed by: Agatha Null DPM, Podiatry/Foot and Ankle Surgery Authorized by: Agatha Null DPM, Podiatry/Foot and Ankle Surgery Indications: Pain Needle Size: 25 G Guidance: landmark Approach: Dorsal Location: Third toe Location comment: Right third intermetatarsal nerve injection. Site: R third MTP Medications: 40 mg triamcinolone 40 MG/ML; 2 mL bupivacaine (PF) 0.5 % Outcome: Tolerated well, no immediate complications Procedure discussed: discussed risks, benefits, and alternatives Consent Given by: Patient Timeout: timeout called immediately prior to procedure Prep: patient was prepped and draped in usual sterile fashion Patient risk factor: Patient is at low risk for infection. Agatha Null DPM, Podiatry/Foot and Ankle Surgery documented in this encounter Plan of Treatment Not on file documented as of this encounter Procedures Procedure Name Priority Date/Time Associated Diagnosis Comments GA DRAIN/INJ SMALL JOINT/BURSA W/O US Routine 01/04/2023 10:28 AM CDT Right foot pain Peroneal tendonitis, right Sinus tarsitis, right Moran's neuroma, right GA INJECTION ANES AGENT AND/OR STERIOD, OTHER PERIPH NERVE/BRANCH Routine 01/04/2023 10:27 AM CDT Right foot pain Peroneal tendonitis, right Sinus tarsitis, right Moran's neuroma, right documented in this encounter Results * GA DRAIN/INJ SMALL JOINT/BURSA W/O US (01/04/2023 10:28 AM CDT) Narrative Agatha Null DPM, Podiatry/Foot and Ankle Surgery - 01/04/2023 10:28 AM CDT Agatha Null DPM, Podiatry/Foot and Ankle Surgery ? 01/04/2023 10:35 AM Small Joint Injection/Arthrocentesis: R third MTP Date/Time: 01/04/2023 10:28 AM Performed by: Agatha Null DPM, Podiatry/Foot and Ankle Surgery Authorized by: Agatha Null DPM, Podiatry/Foot and Ankle Surgery ?? Indications: ??Pain Needle Size: ??25 G Guidance: landmark ?? Approach: ??Dorsal Location: ??Third toe ?? Location comment: ??Right third intermetatarsal nerve injection. Site: ??R third MTP ? Medications: ??40 mg triamcinolone 40 MG/ML; 2 mL bupivacaine (PF) 0.5 % ? Outcome: ??Tolerated well, no immediate complications Procedure discussed: discussed risks, benefits, and alternatives ?? Consent Given by: ??Patient Timeout: timeout called immediately prior to procedure ?? Prep: patient was prepped and draped in usual sterile fashion ?? Agatha Null DPM, Podiatry/ Foot and Ankle Surgery PROCEDURE/MINOR SURGICAL ORDERABLES documented in this encounter Visit Diagnoses Diagnosis Right foot pain- Primary Pain in limb Peroneal tendonitis, right Sinus tarsitis, right Moran's neuroma, right documented in this encounter Administered Medications Active Administered Medications - up to 3 most recent administrations Medication Order MAR Action Action Date Dose Rate Site 2 mL bupivacaine (MARCAINE) preservative free injection 0.5% (20 mL vial) 2 mL, Starting on Elda 7/27/23 at 1028 $Given 01/04/2023 10:28 AM CDT 2 mLs triamcinolone (KENALOG-40) injection 40 mg 40 mg, Starting on Elda 01/04/23 at 1028 $Given 01/04/2023 10:28 AM CDT 40 mg documented in this encounter Additional Health Concerns Assessment Noted Time PHQ-9 Depression Total Score: 7 11/11/19 21 1:31 PM CDT documented as of this encounter Care Teams Brinell Tester Relationship Specialty Start Date End Date Sudha Greene NP [facility] [address] [place] [address] PCP - General 11/01/22 Noreen Flores APRN BLENDER OPERATOR [address] [facility] [place] [address] Assigned PCP 08/05/22 03/16/23 Agatha Null DPM, Podiatry/Foot and Ankle Surgery [address] [place] [address] Assigned Musculoskeletal Provider 11/04/22 documented as of this encounter
--- OUTSIDE RECORDS SUMMARY | 2023-07-02 13:26 | XMS_ITS | Encounter Summary ---
Author Name Unknown Organization [place] Address [address] [place] [address] Care Team Providers Care Load Haul Dump Operator Name Role Phone Noreen Flores APRN DROSS SKIMMER Unavailable Sudha Greene CARDIOTHORACIC ANESTHESIA TECHNICIAN Primary Care Provider Agatha Null DPM, Podiatry /Foot and Ankle Surgery Unavailable Encounter Details Date Type Department Care Team (Latest Contact Info) Description 12/13/2022 Travel Social History Tobacco Use Types Packs/Day [...] Answer Date Recorded PHQ-2 Score 0 11/10/2020 [facility] of Occupat ional Health - Occupational Stress [...] as of this encounter Care Teams Load Haul Dump Operator Relationship Specialty Start Date End Date Sudha Greene NP [address] [address] PCP - General 11/01/22 Noreen Flores APRN CNP [address] [place] [address] [place] [address] Assigned PCP 08/05/22 03/16/23 Agatha Null DPM, Podiatry/Foot and Ankle Surgery [address] [place] [address] Assigned Musculoskeletal Provider 11/04/22 documented as of this encounter
--- OUTSIDE RECORDS SUMMARY | 2023-07-02 13:26 | XMS_ITS | Encounter Summary ---
Author Name Unknown Organization [place] Address [address] [place] [address] Care Team Providers Care Network Project Manager Name Role Phone Noreen Flores APRN GRAIN MIXER Unavailable Sudha Greene NP Primary Care Provider Agatha Null DPM, Podiatry /Foot and Ankle Surgery Unavailable Reason for Visit * Reason Onset Date Comments Results 11/21/2022 Encounter Details Date Type Department Care Team (Late st Contact Info) Description 11/21/2022 Telephone [facility] Podiatry [address] [place] [address] Agatha Null DPM, Podiatry/Foot and Ankle Surgery [address] [place] [address] Results Social History Tobacco Use Types Packs/Day Years [...] Friends and Family Patient declined 08/08/2019 Attends Zoroastrianism Services Patient declined 07/13 Active Member of [...] Answer Date Recorded PHQ-2 Score 0 11/10/2020 [facility] of Occupat ional Health - Occupational [...] Telephone Encounter - Nenita Norton RN - 11/22/2022 2:50 PM CDT Phone call to patient and she was informed of results. Patient already has a boot, so did not recommend an ankle brace at this time. She will follow up at appointment on 11/30/22 at 9:30, with 9:15 amarrival. She verbalized understanding. T. Errol, RN * Telephone Encounter - Agatha Null DPM, Podiatry/Foot and Ankle Surgery - 11/21/2022 1:05 PM CDT MRI of right ankle shows some minimal tearing of the tendon. Recommend follow up in clinic to discuss possible surgery. Would recommend wearing an ankle brace in the meantime. Please let patient know. Agatha Jaeger DPM CDT documented in this encounter Plan of Treatment Not on file documented as of this encounter Visit Diagnoses Not on filedocumented in this encounter Additional Health Concerns Assessment Noted Time PHQ-9 Depression Total Score: 7 11/11/19 21 1:31 PM CDT documented as of this encounter Care Teams Network Project Manager Relationship Specialty Start Date End Date Sudha Greene NP [address] [address] PCP - General 11/01/22 Noreen Flores APRN GRAIN MIXER [address] [facility] [place] [address] Assigned PCP 08/05/22 03/16/23 Agatha Null DPM, Podiatry/Foot and Ankle Surgery [address] [place] [address] Assigned Musculoskeletal Provider 11/04/22 documented as of this encounter
--- OUTSIDE RECORDS SUMMARY | 2023-07-02 13:26 | XMS_ITS | Encounter Summary ---
Author Name Unknown Organization [place] Address [address] [place] [address] Care Team Providers Care High School Music Teacher Name Role Phone Noreen Flores APRN AUTOMOTIVE SERVICE TECHNICIAN Unavailable Sudha Greene NP Primary Care Provider Agatha Null DPM, Podiatry /Foot and Ankle Surgery Unavailable Reason for Visit * Reason Onset Date Comments appointment notes 11/08/2022 nurse Christina wo rking with Dr Greene is requesting visit notes from 11/[address] Null. Fax # is in the comments section Encounter Details Date Type Department Care Team (Late st Contact Info) Description 11/08/2022 [facility] Podiatry [address] [facility] [address] [place] [address] Agatha Null DPM, Podiatry/Foot and Ankle Surgery [address] [facility] [address] [place], [place] [id number] appointment notes (nurse Christina working with Dr Greene is requesting visit notes from 11/[address] Null. Fax # is in the comments section) Social History Tobacco Use Types Packs/Day Years [...] Friends and Family Patient declined 08/08/2019 Attends Hinduism Services Patient declined 07/13 Active Member of [...] Answer Date Recorded PHQ-2 Score 0 11/10/2020 [facility] [place] of Occupat ional Health - Occupational Stress [...] encounter Miscellaneous Notes * Telephone Encounter - Dafne Guerrero MA - 11/14/2022 8:39 AM CDT Notes from 11/01/22 faxed to Christina/Dr. Greene. [phone]. Ivette Allan M.A. * Telephone Encounter - Nenita Norton RN - 11/13/2022 9:08 AM CDT Please fax office visit notes to PCP below as requested. Yaakov Norton RN * Telephone Encounter - Haily Gandhi ATC - 11/09/2022 11:23 AM CDT Upon chart review patient was referred to Dr. Null by her PCP Sudha Greene NP. Haily Gandhi MSA, ATC Cooker Meal * Telephone Encounter - Marian Parker - 11/08/2022 1:38 PM CDT [facility] Phone Message May a detailed message be left on voicemail: yes Reason for Call: Other: Christina, nurse working with Dr Greene is requesting visit notes from 11/01 [address]Dr Null. Fax # is in the comments section Action Taken: Message routed to: [facility] kiel Null Travel Screening: Not Applicable documented in this encounter Plan of Treatment Not on file documented as of this encounter Visit Diagnoses Not on filedocumented in this encounter Additional Health Concerns Assessment Noted Time PHQ-9 Depression Total Score: 7 11/11/19 21 1:31 PM CDT documented as of this encounter Care Teams High School Music Teacher Relationship Specialty Start Date End Date Sudha Greene NP [address] [address] PCP - General 11/01/22 Noreen Flores APRN AUTOMOTIVE SERVICE TECHNICIAN [address] [facility] [place] [address] Assigned PCP 08/05/22 03/16/23 Agatha Null DPM, Podiatry/Foot and Ankle Surgery [address] [place] [address] Assigned Musculoskeletal Provider 11/04/22 documented as of this encounter
--- OUTSIDE RECORDS SUMMARY | 2023-07-02 13:26 | XMS_ITS | Encounter Summary ---
Author Name Unknown Organization [place] Address [address] [place] [address] Care Team Providers Care Cloud Architect Name Role Phone Noreen Flores PLASTERER SPOT BANQUET CHEF Unavailable Sudha Greene TOW TRUCK DRIVER Primary Care Provider Agatha Null DPM, Podiatry /Foot and Ankle Surgery Unavailable Reason for Visit * Diagnostic Imaging MRI (Routine) - Closed Specialty Diagnoses / Procedures Referred By Rylie t Referred To Contact Radiology. Diagnoses Right foot pain Peroneal tendonitis, right Sinus tarsitis, right Procedures MR Ankle Right w/o Contrast MR Ankle Right w/o & w Contrast Agatha Null DPM, Podiatry/Foot and Ankle Surgery [address] [place] [address] [facility] [facility] [address] [place] [address] Referral ID Status Reason Start Date Expiration Date Visits Re quested Visits Authorized [id number] Closed 11/01/2022 11/01/2023 1 1 Encounter Details Date Type Department Care Team (Latest Contact Info) Description 11/16/2022 11:53 AM CDT - 11/16/2022 11:59 PM CDT Hospital Encounter [facility] [address] [facility] [address] [place] [address] Agatha Null DPM, Podiatry/Foot and Ankle Surgery [address] [place] [address] Right foot pain; Peroneal tendonitis, right; Sinus tarsitis, right Discharge Disposition: Home or Self Care [...] Friends and Family Patient declined 08/08/2019 Attends Yazidism Services Patient declined 07/13 Active Member of [...] Answer Date Recorded PHQ-2 Score 0 11/10/2020 [facility] of Occupat ional Health - [...] In the last 10 days, have natalya u been in contact with someone who [...] sprayIndications:George rgic rhinitis, unspecified seasonality, unspecified trigger [place] 1-2 sprays into both nostrils daily 16 [...] 10/11/2020 02/19/2023 documented as of this encounter Plan of Treatment Not on file documented as of this encounter Procedures Procedure Name Priority Date/Time Associated Diagnosis Comments MR ANKLE RIGHT W/O CONTRAST Routine 11/16/2022 1:10 PM CDT Right foot pain Peroneal tendonitis, right Sinus tarsitis, right documented in this encounter Results * MR Ankle Right [...] 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 5. ??Exam otherwise negative. 6. ??Thickening of the plantar fascia without signal abnormality consistent with old resolved plantar fasciitis. ? 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 -Anterior: Anterior tibialis, extensor hallucis longus, [...] tarsal tunnel: Normal. -Muscles: Normal. Procedure Note BlockAbimael MD - 11/20/2022 EXAM: MR ANKLE RIGHT W/O CONTRAST LOCATION: [facility] DATE/TIME: 11/16/2022 1:10 PM CDT INDICATION: Assess [...] at the pseudoarthrosis between the accessory ossicleand quileute navicular. -Anterior: Anterior tibialis, extensor hallucis longus, [...] at the pseudoarthrosis between theaccessory ossicle and quileute navicular. 5. Exam otherwise negative. 6. Thickening of the plantar fascia without signal abnormality consistentwith old resolved plantar fasciitis. Agatha Null DPM, Podiatry/Foot and Ank le Surgery IMG MRI ORDERABLES documented in this encounter Visit Diagnoses Diagnosis Right foot pain Pain in limb Peroneal tendonitis, right Sinus tarsitis, right documented in this encounter Additional Health Concerns Assessment Noted Time PHQ-9 Depression Total Score: 7 11/11/19 21 1:31 PM CDT documented as of this encounter Care Teams Cloud Architect Relationship Specialty Start Date End Date Sudha Greene NP [address] [address] PCP - General [facility]01[facility] BANQUET CHEF [address] [place] [address] [place] [address] Assigned PCP 08/05/22 03/16/23 Agatha Null DPM, Podiatry/Foot and Ankle Surgery [address] [place] [address] Assigned Musculoskeletal Provider 11/04/22 documented as of this encounter
--- OUTSIDE RECORDS SUMMARY | 2023-07-02 13:27 | XMS_ITS | Encounter Summary ---
Author Name Unknown Organization [facility] Address [address] [place] [address] Care Team Providers Care Counter Clerk Tractor Parts Name Role Phone Noreen Flores APRN PHOTOGRAPHER AERIAL Unavailable Noreen Flores APRN PHOTOGRAPHER AERIAL Primary Car e Provider Kalyan Galvan Unavailable Unavailable Lashae Trevino [facility] Unavailable [phone] Eduardo Sharma MD Unavailable Marcelo Artis PA-C Unavailable Rodrigo Man PA-C Unavailable Noreen Flores APRN PHOTOGRAPHER AERIAL Unavailable Sudha Greene NP Primary Care Provider Agatha Null DPM, Podiatry /Foot and Ankle Surgery Unavailable Encounter Details Date Type Department Care Team (Late st Contact Info) Description 09/25/2020 Documentation Only INTERFACED REPORT Unknown, [...] Friends and Family Patient declined 08/08/2019 Attends Adventist Services Patient declined 07/13 Active Member of Clubs or Organizations No 08/08/2019 Attends Club or Organization Meetings Patient fu 08/08/2019 Marital Status 08/08/2019 AUDIT-C Answer Date [...] 08/08/2019 PHQ-2 Answer Date Recorded PHQ-2 Score 2 07/25/2018 [facility] of Occupat ional Health - Occupational Stress [...] Noted Time PHQ-9 Depression Total Score: 5 03/16/20 20 7:09 AM CDT documented as of this encounter Care Teams Counter Clerk Tractor Parts Relationship Specialty Start Date End Date Noreen Flores APRN PHOTOGRAPHER AERIAL [address] [place] [address] [place] [address] PCP - General Nurse Practitioner 01/09/19 12/12/21 Sudha Greene NP [address] [address] PCP - General 11/01/22 Noreen Flores APRN PHOTOGRAPHER AERIAL [address] [place] [address] [place] [address] Assigned PCP 06/16/18 05/26/22 Kalyan Galvan Personal Advocate & Liaison (PAL) 08/08/19 04/26/21 Lashae Trevino, [facility] [address] [facility] [place] [id number] Pharmacist Pharmacist 10/14/19 12/01/20 Eduardo Sharma MD [address] [place] [address] Assigned Sleep Provider 04/02/2005/07 Marcelo Artis PA-C 53511 [facility] 300 [place] [address] Assigned Musculoskeletal Provider 08/25/20 08/20/21 Rodrigo Man PA-C [address] [place] [place] [id number] Assigned Surgical Provider 08/25/20 11/27/20 Noreen Flores APRN PHOTOGRAPHER AERIAL [address] [place] [address] [place] [address] Assigned PCP 08/05/22 03/16/23 Agatha Null, MARÍA, Podiatry/Foot and Ankle Surgery [address] [place] [address] Assigned Musculoskeletal Provider 11/04/22 documented as of this encounter
--- OUTSIDE RECORDS SUMMARY | 2023-07-02 13:27 | XMS_ITS | Encounter Summary ---
Author Name Unknown Organization [facility] Address [address] [place] [address] Care Team Providers Care Manager E Learning Name Role Phone Noreen Flores APRN USED CAR MAKE READY WORKER Unavailable Noreen Flores APRN USED CAR MAKE READY WORKER Primary Car e Provider Marcelo Artis PA-C Unavailable [phone] Noreen Flores APRN USED CAR MAKE READY WORKER Unavailable Sudha Greene NP Primary Care Provider Agatha Null DPM, Podiatry /Foot and Ankle Surgery Unavailable Encounter Details Date Type Department Care Team (Late st Contact Info) Description 07/25/2021 [facility] Medical Advice [address] [place] [address] Christi Panda MA Social History Tobacco Use Types Packs/Day Years [...] PHQ-2 Score 0 11/10/2020 [facility] [place] of Occupat ional Health - Occupational Stress [...] as of this encounter Care Teams Manager E Learning Relationship Specialty Start Date End Date Noreen Flores APRN USED CAR MAKE READY WORKER [address] [facility] [place] [address] PCP - General Nurse Practitioner 01/09/19 12/12/21 Sudha Greene NP [address] [address] PCP - General 11/01/22 Noreen Flores APRN USED CAR MAKE READY WORKER [address] [place] [address] [place] [address] Assigned PCP 06/16/18 05/26/22 Marcelo Artis PA-C [id number] [place] [address] Assigned Musculoskeletal Provider 08/25/20 08/20/21 Noreen Flores APRN USED CAR MAKE READY WORKER [address] [place] [address] [place] [address] Assigned PCP 08/05/22 03/16/23 Agatha Null DPM, Podiatry/Foot and Ankle Surgery [address] [facility] 300 [place] [address] Assigned Musculoskeletal Provider 11/04/22 documented as of this encounter
--- OUTSIDE RECORDS SUMMARY | 2023-07-02 13:27 | XMS_ITS | Encounter Summary ---
Author Name Unknown Organization [place] Address [address] [place] [address] Care Team Providers Care Die Cutter Operator Name Role Phone Noreen Flores APRN ACCOUNT SERVICES MANAGER Unavailable Noreen Flores APRN ACCOUNT SERVICES MANAGER Primary Car e Provider Kalyan Galvan Unavailable Unavailable Lashae Trevino [facility] Unavailable Eduardo Sharma MD Unavailable Marcelo Artis PA-C Unavailable Rodrigo Man PA-C Unavailable [phone] Noreen Flores APRN ACCOUNT SERVICES MANAGER Unavailable Sudha Greene NP Primary Care Provider Agatha Null DPM, Podiatry /Foot and Ankle Surgery Unavailable Encounter Details Date Type Department Care Team (Late st Contact Info) Description 10/28/2020 MyC Medical Advice [facility] [place] [address] [facility] [address] [place] [address] Lashae Trevino, [facility] 1440 [facility] [place] [address] Social History Tobacco Use Types Packs/Day Years [...] Friends and Family Patient declined 08/08/2019 Attends Scientologist Services Patient declined 07/13 Active Member of [...] Answer Date Recorded PHQ-2 Score 2 07/25/2018 [facility] of Occupat ional Health - Occupational Stress [...] as of this encounter Care Teams Die Cutter Operator Relationship Specialty Start Date End Date Noreen Flores APRN ACCOUNT SERVICES MANAGER [address] [facility] [place] [address] PCP - General Nurse Practitioner 01/09/19 12/12/21 Sudha Greene NP [address] [address] PCP - General 11/01/22 Noreen Flores APRN ACCOUNT SERVICES MANAGER [address] [place] [address] [place] [address] Assigned PCP 06/16/18 05/26/22 Kalyan Galvan Personal Advocate & Liaison (PAL) 08/08/19 04/26/21 Lashae Trevino, [facility]0 [facility] [place] [phone] Pharmacist Pharmacist 10/14/19 12/01/20 Eduardo Sharma MD [address] [facility] 103 [place] 075165 Assigned Sleep Provider 04/02/2005/07 Marcelo Artis PA-C [address]45 [facility] [place] 300 [place], [place] 7[address] Assigned Musculoskeletal Provider 08/25/20 08/20/21 Rodrigo Man PA-C [address] [place] [address] [place] [id number] Assigned Surgical Provider 08/25/20 11/27/20 Noreen Flores APRN ACCOUNT SERVICES MANAGER [address] [facility] [place] [address] Assigned PCP 08/05/22 03/16/23 Agatha Null DPM, Podiatry/Foot and Ankle Surgery [address] [place] [address] Assigned Musculoskeletal Provider 11/04/22 documented as of this encounter
--- OUTSIDE RECORDS SUMMARY | 2023-07-02 13:27 | XMS_ITS | Encounter Summary ---
Author Name Unknown Organization [facility] Address [address] [place] [address] Care Team Providers Care Component Prep Operator Name Role Phone Noreen Flores APRN CORPORATE RELATIONS DIRECTOR Unavailable Noreen Flores APRN CORPORATE RELATIONS DIRECTOR Primary Car e Provider Kalyan Galvan Unavailable Unavailable Lashae Trevino [facility] Unavailable Eduardo Sharma MD Unavailable Marcelo Artis PA-C Unavailable [phone] Rodrigo Man PA-C Unavailable [phone] Noreen Flores APRN CORPORATE RELATIONS DIRECTOR Unavailable Sudha Greene NP Primary Care Provider Agatha Null DPM, Podiatry /Foot and Ankle Surgery Unavailable Reason for Visit * Reason Onset Date Comments Refill Request 09/24/2020 zolpidem (AMBIEN ) 5 MG tablet Encounter Details Date Type Department Care Team (Late st Contact Info) Description 09/24/[address] [facility] [place] [address] [facility] [address] [place] [address] Noreen Flores APRN CORPORATE RELATIONS DIRECTOR [address] [facility] [place] [address] Refill Request (zolpidem (AMBIEN) 5 MG tablet) Social History Tobacco Use Types Packs/Day Years [...] Friends and Family Patient declined 08/08/2019 Attends Muslim Services Patient declined 07/13 Active Member of [...] Answer Date Recorded PHQ-2 Score 2 07/25/2018 [facility] [place] of Occupat ional Health - Occupational Stress [...] month, have you been in contact with someone who was confirmed or suspected to have Coronavirus / COVID-19? No / Unsure 08/25/2020 7:31 PM CDT documented as of this encounter Plan of Treatment Not on file documented as of this encounter Visit Diagnoses Diagnosis Persistent insomnia Persistent disorder of initiating or maintaining sleep documented in this encounter Additional Health Concerns Infection Onset Date Last Indicated Resolved Time Rule Out COVID-19 11/26/2022 11/26/2022 11/27/2022 3:38 PM CDT Assessment Noted Time PHQ-9 Depression Total Score: 5 03/16/20 7:09 AM CDT documented as of this encounter Care Teams Component Prep Operator Relationship Specialty Start Date End Date Noreen Flores APRN CORPORATE RELATIONS DIRECTOR [address] [place] [address] [place] [address] PCP - General Nurse Practitioner 01/09/19 12/12/21 Sudha Greene NP [address] [address] PCP - General 11/01/22 Noreen Flores APRN CORPORATE RELATIONS DIRECTOR [address] [place] [address] [place] [address] Assigned PCP 06/16/18 05/26/22 Kalyan Galvan Personal Advocate & Liaison (PAL) 08/08/19 04/26/21 Lashae Trevino [facility] [address] [place] [address] Pharmacist Pharmacist 10/14/19 12/01/20 Eduardo Sharma MD [address] [place] [address] [place] [address] Assigned Sleep Provider 04/02/2005/07 ChandraMarcelo PA-C [address]8 [facility] 300 [place] [address] Assigned Musculoskeletal Provider 08/25/20 08/20/21 Rodrigo Man PA-C [address] [facility] 450 [place] [address] Assigned Surgical Provider 08/25/20 11/27/20 Noreen Flores APRN CORPORATE RELATIONS DIRECTOR [address] [facility] [place] [address] Assigned PCP 08/05/22 03/16/23 Agatha Null DPM, Podiatry/Foot and Ankle Surgery [address] [facility] 300 [place] [address] Assigned Musculoskeletal Provider 11/04/22 documented as of this encounter
--- OUTSIDE RECORDS SUMMARY | 2023-07-02 13:27 | XMS_ITS | Encounter Summary ---
Author Name Unknown Organization [facility] Address [address] [place] [address] Care Team Providers Care Technical System Analyst Name Role Phone Noreen Flores APRN, CNP Unavailable Noreen Flores APRN, CNP Primary Car e Provider Kalyan Galvan Unavailable Unavailable Lashae Trevino [facility] Unavailable [phone] Eduardo Sharma MD Unavailable Rios Monteiro MD Unavailable [phone] Marcelo Artis PA-C Unavailable Rodrigo Man PA-C Unavailable [phone] Noreen Flores APRN, CNP Unavailable Sudha Greene NP Primary Care Provider Agatha Null DPM, Podiatry /Foot and Ankle Surgery Unavailable Reason for Visit * Reason Comments Medication Refill Encounter Details Date Type Department Care Team (Late st Contact Info) Description 07/10/2020 [facility] [address] [place] [address] Noreen Flores APRN CNP [address] [facility] [place] [address] Medication Refill Social History Tobacco Use Types Packs/Day Years [...] Friends and Family Patient declined 08/08/2019 Attends Adventism Services Patient declined 07/13 Active Member of [...] Answer Date Recorded PHQ-2 Score 2 07/25/2018 [facility] of Occupat ional Health - Occupational Stress [...] encounter Miscellaneous Notes * Telephone Encounter - Desirae Champagne RN - 07/13/2020 11:10 AM INFORMATION TECHNOLOGY INSTRUCTOR Routing refill request to provider for review/approval because: Patient taking 8-10 sumatriptan a month. Desirae Champagne RN on 07/13/2020 at 11:11 AM RMATION TECHNOLOGY INSTRUCTOR * Telephone Encounter - Lainey Wells - 07/12/2020 2:22 PM CST The pt called back and she says that she takes anywhere from 8-10 a month. Lainey Wells on 07/12/2020 at 2:25 PM RMATION TECHNOLOGY INSTRUCTOR * Telephone Encounter - Lainey Wells - 07/12/2020 10:59 AM CST 1st attempt l/m. Lainey Wells on 07/12/2020 at 10:59 AM RMATION TECHNOLOGY INSTRUCTOR * Telephone Encounter - Desirae Champagne RN - 07/12/2020 10:02 AM INFORMATION TECHNOLOGY INSTRUCTOR Please call patient and see how many doses of sumatriptan patient has used in the past month. Should be using 8 doses or fewer per month. Desirae Champagne RN on 07/12/2020 at 10:07 AM RMATION TECHNOLOGY INSTRUCTOR documented in this encounter Plan of Treatment Not on file documented as of this encounter Visit Diagnoses Diagnosis Migraine without status migrainosus, not intractable, unspecified migraine type documented in this encounter Additional Health Concerns Infection Onset Date Last Indicated Resolved Time Rule Out COVID-19 08/25/2020 08/25/2020 08/26/2020 3:23 PM CDT Rule Out COVID-19 11/26/2022 11/26/2022 11/27/2022 3:38 PM CDT Assessment Noted Time PHQ-9 Depression Total Score: 5 03/16/20 20 7:09 AM CDT documented as of this encounter Care Teams Technical System Analyst Relationship Specialty Start Date End Date Noreen Flores APRN ACCOUNTS RECEIVABLE EXECUTIVE [address] [facility] [place] [address] PCP - General Nurse Practitioner 01/09/19 12/12/21 Sudha Greene NP [address] [address] PCP - General 11/01/[facility] ACCOUNTS RECEIVABLE EXECUTIVE [address] [place] [address] [place] [address] Assigned PCP 06/16/18 05/26/22 Kalyan Galvan Personal Advocate & Liaison (PAL) 08/08/19 04/26/21 [facility] [address] [place] [address] [place] [address] Pharmacist Pharmacist 10/14/19 12/01/20 Eduardo Sharma MD [address] [place] [address] Assigned Sleep Provider 04/02/2005/07 [place] [address] [facility] [address] [place] [address] Assigned Musculoskeletal Provider 04/02/20 08/24/20 Marcelo Artis PA-C [address] [facility] [address] [place] [address] Assigned Musculoskeletal Provider 08/25/20 08/20/21 Rodrigo Man PA-C [address] [place] [address] [place] [address] Assigned Surgical Provider 08/25/20 11/27/20 Noreen Flores APRN ACCOUNTS RECEIVABLE EXECUTIVE [address] [facility] [place] [address] Assigned PCP 08/05/22 03/16/23 Agatha Null DPM, Podiatry/Foot and Ankle Surgery [address] [place] [address] [place] [address] Assigned Musculoskeletal Provider 11/04/22 documented as of this encounter
--- OUTSIDE RECORDS SUMMARY | 2023-07-02 13:27 | XMS_ITS | Encounter Summary ---
Author Name Unknown Organization [facility] Address [address] [place] [address] Care Team Providers Care Geoscience Professor Name Role Phone Noreen Flores APRN TOOL GRINDER SET UP OPERATOR GEAR Unavailable Noreen Flores APRN TOOL GRINDER SET UP OPERATOR GEAR Primary Car e Provider Kalyan Galvan Unavailable Unavailable Lashae Trevino [facility] Unavailable Eduardo Sharma MD Unavailable Marcelo Artis PA-C Unavailable Rodrigo Man PA-C Unavailable [phone] Noreen Flores APRN TOOL GRINDER SET UP OPERATOR GEAR Unavailable Sudha Greene NP Primary Care Provider [phone] Agatha Null DPM, Podiatry /Foot and Ankle Surgery Unavailable Reason for Visit * Reason Onset Date Comments Refill Request 10/05/2020 topiramate (TOPA MAX) 100 MG tablet Encounter Details Date Type Department Care Team (Late st Contact Info) Description 10/05/2020 Refill [facility] [place] [address] [facility] [address] [place] [address] Noreen Flores APRN TOOL GRINDER SET UP OPERATOR GEAR 120[address] [facility] [place] [address] Refill Request (topiramate (TOPAMAX) 100 MG tablet) Social History Tobacco Use Types [...] Answer Date Recorded PHQ-2 Score 2 07/25/2018 [facility] [place] of Occupat ional Health - Occupational Stress [...] encounter Miscellaneous Notes * Telephone Encounter - Geo Whipple RN - 10/08/2020 3:41 PM CDT Routing refill request to provider for review/approval because: Please review, last prescribed 1 year ago. Geo Girard RN * Telephone Encounter - Sara Grewal - 10/05/2020 [...] documented as of this encounter Care Teams Geoscience Professor Relationship Specialty Start Date End Date Noreen Flores APRN TOOL GRINDER SET UP OPERATOR GEAR [address] [place] [address] [place] [address] PCP - General Nurse Practitioner 01/09/19 12/12/21 Sudha Greene NP [address] [address] PCP - General 11/01/22 Noreen Flores APRN TOOL GRINDER SET UP OPERATOR GEAR [address] [place] [address] [place] [address] Assigned PCP 06/16/18 05/26/22 Kalyan Galvan Personal Advocate & Liaison (PAL) 08/08/19 04/26/21 Lashae Trevino, [facility] 14[address] [facility] [place] [id number] Pharmacist Pharmacist 10/14/19 12/01/20 Eduardo Sharma MD [address] [place] [address] [place] [address]004[address] Assigned Sleep Provider 04/02/2005/07 Marcelo Artis PA-C [address] [facility] [address] [place] [address] Assigned Musculoskeletal Provider 08/25/20 08/20/21 Rodrigo Man PA-C [address] [place] [address] [place] [address] Assigned Surgical Provider 08/25/20 11/27/20 Noreen Flores APRN TOOL GRINDER SET UP OPERATOR GEAR [address] [facility] [place] [address] Assigned PCP 08/05/22 03/16/23 Agatha Null DPM, Podiatry/Foot and Ankle Surgery [address] [facility] 300 [place] [address] Assigned Musculoskeletal Provider 11/04/22 documented as of this encounter
--- OUTSIDE RECORDS SUMMARY | 2023-07-02 13:27 | XMS_ITS | Encounter Summary ---
Author Name Unknown Organization [place] Address [address] [place] [address] Care Team Providers Care Arabic Linguist Name Role Phone Noreen Flores APRN, CNP Unavailable Noreen Flores APRN, CNP Primary Car e Provider Kalyan Galvan Unavailable Unavailable Lashae Trevino [facility] Unavailable [phone] Eduardo Sharma MD Unavailable Rios Monteiro MD Unavailable [phone] Marcelo Artis PA-C Unavailable Rodrigo Man PA-C Unavailable [phone] Noreen Flores APRN, CNP Unavailable Sudha Greene NP Primary Care Provider Agatha Null DPM, Podiatry /Foot and Ankle Surgery Unavailable Encounter Details Date Type Department Care Team (Late st Contact Info) Description 07/15/2020 [facility] Medical Advice [facility] [place] [address] [place] [address] Noreen Flores APRN CNP 2429 [facility] [place] [address] Social History [...] Friends and Family Patient declined 08/08/2019 Attends Pentecostal Services Patient declined 07/13 Active Member of [...] Answer Date Recorded PHQ-2 Score 2 07/25/2018 [facility] [place] of Occupat ional Health - Occupational Stress [...] have Coronavirus / COVID-19? No / Unsure 07/17/2020 1:32 PM MULTIPLE COIL WINDER documented as of this encounter Plan of [...] documented as of this encounter Care Teams Arabic Linguist Relationship Specialty Start Date End Date Noreen Flores APRN ENVELOPE STUFFER [address] [place] [address] [place] [address] PCP - General Nurse Practitioner 01/09/19 12/12/21 Sudha Greene NP [address] [address] PCP - General 11/01/22 Noreen Flores APRN ENVELOPE STUFFER [address] [place] [address] [place] [address] Assigned PCP 06/16/18 05/26/22 Kalyan Galvan Personal Advocate & Liaison (PAL) 08/08/19 04/26/21 [facility] [address] [place] [address] Pharmacist Pharmacist 10/14/19 12/01/20 Eduardo Sharma MD [address] [place] [address] [place] [address] Assigned Sleep Provider 04/02/2005/07 [place] [address] [facility] 300 [place] [address] Assigned Musculoskeletal Provider 04/02/20 08/24/20 Marcelo Artis PA-C [address] 493857 Assigned Musculoskeletal Provider 08/25/20 08/20/21 Rodrigo Man PA-C [address] [facility] 450 [place] [address] Assigned Surgical Provider 08/25/20 11/27/20 Noreen Flores APRN ENVELOPE STUFFER [address] [facility] [address] [place] [id number] Assigned PCP 08/05/22 03/16/23 Agatha Null DPM, Podiatry/Foot and Ankle Surgery [address] [facility] [address] [place] [address] Assigned Musculoskeletal Provider 11/04/22 documented as of this encounter
--- OUTSIDE RECORDS SUMMARY | 2023-07-02 13:27 | XMS_ITS | Encounter Summary ---
Author Name Unknown Organization [place] Address [address] [place] [address] Care Team Providers Care Music Composer Name Role Phone Noreen Flores APRN PLATEN PRESS FEEDER Unavailable Noreen Flores APRN PLATEN PRESS FEEDER Primary Car e Provider Kalyan Galvan Unavailable Unavailable Lashae Trevino [facility] Unavailable [phone] Eduardo Sharma MD Unavailable Marcleo Artis PA-C Unavailable Rodrigo Man PA-C Unavailable Noreen Flores APRN PLATEN PRESS FEEDER Unavailable Sudha Greene NP Primary Care Provider Agatha Null DPM, Podiatry /Foot and Ankle Surgery Unavailable Encounter Details Date Type Department Care Team (Late st Contact Info) Description 09/04/2020 Documentation Only INTERFACED REPORT Unknown, [...] No 08/08/2019 Attends Club or Organization Meetings Kevon fu 08/08/2019 Marital Status 08/08/2019 AUDIT-C Answer [...] Answer Date Recorded PHQ-2 Score 2 07/25/2018 [facility] of Occupat ional Health - Occupational Stress [...] as of this encounter Care Teams Music Composer Relationship Specialty Start Date End Date Noreen Flores APRN PLATEN PRESS FEEDER 3[address] [facility] [place] [address] PCP - General Nurse Practitioner 01/09/19 12/12/21 Sudha Greene NP [address] [address] PCP - General 11/01/22 Noreen Flores APRN PLATEN PRESS FEEDER [address] [place] [address] [place] [address] Assigned PCP 06/16/18 05/26/22 Kalyan Galvan Personal Advocate & Liaison (PAL) 08/08/19 04/26/21 Lashae Trevino, [facility] [place] [address] Pharmacist Pharmacist 10/14/19 12/01/20 Eduardo Sharma MD [address] [place] [address] Assigned Sleep Provider 04/02/2005/07 Marcelo Artis PA-C [address] [facility] [address] [place] [address] Assigned Musculoskeletal Provider 08/25/20 08/20/21 Rodrigo Man PA-C [address] [place] [address] Assigned Surgical Provider 08/25/20 11/27/20 Noreen Flores, SEAN PLATEN PRESS FEEDER 3305 [facility] [place] [address] Assigned PCP 08/05/22 03/16/23 Agatha Null DPM, Podiatry/Foot and Ankle Surgery [address] [place] [address] Assigned Musculoskeletal Provider 11/04/22 documented as of this encounter
--- OUTSIDE RECORDS SUMMARY | 2023-07-02 13:27 | XMS_ITS | Encounter Summary ---
Author Name Unknown Organization [facility] Address [address] [place] [address] Care Team Providers Care Card Lacer Name Role Phone Noreen Flores APRN, CNP Unavailable Noreen Flores APRN, CNP Primary Car e Provider Kalyan Galvan Unavailable Unavailable Lashae Trevino [facility] Unavailable [phone] Eduardo Sharma MD Unavailable Rios Monteiro MD Unavailable [phone] Marcelo Artis PA-C Unavailable Rodrigo Man PA-C Unavailable [phone] Noreen Flores APRN, CNP Unavailable Sudha Greene NP Primary Care Provider Agatha Null DPM, Podiatry /Foot and Ankle Surgery Unavailable Reason for Visit * Reason Comments Medication Refill Encounter Details Date Type Department Care Team (Late st Contact Info) Description 06/18/2020 [facility] [address] [place] [address] Noreen Flores APRN CNP [address] [facility] [place] [address] Medication Refill Social [...] Answer Date Recorded PHQ-2 Score 2 07/25/2018 [facility] [place] of Occupat ional Health - Occupational Stress [...] Desirae Champagne RN - 06/18/2020 10:53 AM TOWBOAT OPERATOR Prescription approved [place] [facility] [place]ill Protocol. Desirae Champagne RN on 06/18/2020 at 10:52 AM OAT OPERATOR documented in this encounter Plan of Treatment Not on file documented as of this encounter Visit Diagnoses Diagnosis Type 2 diabetes mellitus with complication, without [...] documented as of this encounter Care Teams Card Lacer Relationship Specialty Start Date End Date Noreen Flores APRN BENZENE STILL UTILITY OPERATOR [address] [place] [address] [place] [address] PCP - General Nurse Practitioner 01/09/19 12/12/21 Sudha Greene NP [address] [address] PCP - General 11/01/22 Noreen Flores APRN BENZENE STILL UTILITY OPERATOR [address] [place] [address] [place] [address] Assigned PCP 06/16/18 05/26/22 Kalyan Galvan Personal Advocate & Liaison (PAL) 08/08/19 04/26/21 Lashae Trevino, [facility] [address] [place] [address] Pharmacist Pharmacist 10/14/19 12/01/20 Eduardo Sharma MD [address] [place] [address] [place] [address] Assigned Sleep Provider 04/02/2005/07 [place] [address] [place] [address] [place] [address] Assigned Musculoskeletal Provider 04/02/20 08/24/20 Marcelo Artis PA-C [address] [place] [address] [facility] [place] [address] Assigned Musculoskeletal Provider 08/25/20 08/20/21 Rodrigo Man PA-C [address] [place] [address] [place] [address] Assigned Surgical Provider 08/25/20 11/27/20 Noreen Flores APRN BENZENE STILL UTILITY OPERATOR [address] [facility] [place] [address] Assigned PCP 08/05/22 03/16/23 Agatha Null DPM, Podiatry/Foot and Ankle Surgery [address] [place] [address] Assigned Musculoskeletal Provider 11/04/22 documented as of this encounter
--- OUTSIDE RECORDS SUMMARY | 2023-07-02 13:27 | XMS_ITS | Encounter Summary ---
Author Name Unknown Organization [facility] Address [address] [place] [address] Care Team Providers Care Road Design Draftsperson Name Role Phone Noreen Flores APRN, CNP Unavailable Noreen Flores APRN EARLY CHILDHOOD TEACHER ASSISTANT Primary Car e Provider Kalyan Galvan Unavailable Unavailable Lashae Trevino [facility] Unavailable Eduardo Sharma MD Unavailable Rios Monteiro MD Unavailable [phone] Marcelo Artis PA-C Unavailable [phone] Rodrigo Man PA-C Unavailable [phone] Noreen Flores APRN, CNP Unavailable Sudha Greene NP Primary Care Provider [phone] Agatha Null DPM, Podiatry /Foot and Ankle Surgery Unavailable Reason for Visit * Reason Onset Date Comments Refill Request 06/14/2020 blood glucose mo nitoring (ONE TOUCH DELICA) lancets Refill Request 06/14/2020 blood glucose (A CCU-CHEK JANICE) test strip Encounter Details Date Type Department Care Team (Late st Contact Info) Description [facility] [address] [facility] [address] [place] [address] Noreen Flores APRN EARLY CHILDHOOD TEACHER ASSISTANT [address] [facility] [place] [address] Refill Request (blood glucose monitoring (ONE TOUCH DELICA) lancets); Refill Request (blood glucose (ACCU-CHEK JANICE) test strip) Social History Tobacco Use Types Packs/Day Years [...] Friends and Family Patient declined 08/08/2019 Attends Mormonism Services Patient declined 07/13 Active Member of [...] Answer Date Recorded PHQ-2 Score 2 07/25/2018 [facility] [place] of Occupat ional Health - Occupational Stress [...] encounter Miscellaneous Notes * Telephone Encounter - Christy Pelayo RN - 06/16/2020 11:04 AM APPLIQUE CUTTER Prescription approved per [facility] Refill Protocol. Christy Pelayo RN Flex IQUE CUTTER * Telephone Encounter - Candy Wilda - 06/14/2020 3:55 PM CST Request from pharmacy states: ONE TOUCH VERIO TEST STRIPS and ONE TOUCH 30G DELICA LNC, IQUE CUTTER documented in this encounter Plan of Treatment Not on file documented as of this encounter Visit Diagnoses Diagnosis Type 2 diabetes, HbA1c goal < 7% (H) Type II or unspecified type diabetes mellitus [...] documented as of this encounter Care Teams Road Design Draftsperson Relationship Specialty Start Date End Date Noreen Flores APRN CNP [facility] [place] [address] PCP - General Nurse Practitioner 01/09/19 12/12/21 Sudha Greene NP [facility] & [address] [address] PCP - General 11/01/22 Noreen Flores APRN EARLY CHILDHOOD TEACHER ASSISTANT [address] [facility] [place] [address] Assigned PCP 06/16/18 05/26/22 Kalyan Galvan Personal Advocate & Liaison (PAL) 08/08/19 04/26/21 [facility] [place] [address] Pharmacist Pharmacist 10/14/19 12/01/20 Eduardo Sharma MD [address] [place] [address] [place] [address] Assigned Sleep Provider 04/02/2005/07 [place] [address] [address] [place] [place] [address] Assigned Musculoskeletal Provider 04/02/20 08/24/20 Marcelo Artis PA-C [address] [place] [place] [address] Assigned Musculoskeletal Provider 08/25/20 08/20/21 Rodrigo Man PA-C [address] [place] [address] [place] [address] Assigned Surgical Provider 08/25/20 11/27/20 Noreen Flores APRN EARLY CHILDHOOD TEACHER ASSISTANT [address] [facility] [place] [address] Assigned PCP 08/05/22 03/16/23 Agatha Null, DPM, Podiatry/Foot and Ankle Surgery [address] [place] [address] Assigned Musculoskeletal Provider 11/04/22 documented as of this encounter
--- OUTSIDE RECORDS SUMMARY | 2023-07-02 13:27 | XMS_ITS | Encounter Summary ---
Author Name Unknown Organization [facility] Address [address] [place] [address] Care Team Providers Care Rodding Machine Tender Name Role Phone Noreen Flores APRN RESTORER LACE AND TEXTILES Unavailable Noreen Flores APRN RESTORER LACE AND TEXTILES Primary Car e Provider Kalyan Galvan Unavailable Unavailable Lashae Trevino [facility] Unavailable Eduardo Sharma MD Unavailable Marcelo Artis PA-C Unavailable Rodrigo Man PA-C Unavailable [phone] Noreen Flores APRN RESTORER LACE AND TEXTILES Unavailable Sudha Greene NP Primary Care Provider Agatha Null DPM, Podiatry /Foot and Ankle Surgery Unavailable Encounter Details Date Type Department Care Team (Late st Contact Info) Description 10/20/2020 MyC Medical Advice [facility] [address] [facility] [address] [place] [address] Lainey Wells Social History Tobacco Use Types Packs/Day Years [...] Friends and Family Patient declined 08/08/2019 Attends Evangelical Services Patient declined 07/13 Active Member of [...] Answer Date Recorded PHQ-2 Score 2 07/25/2018 [facility] [place] of Occupat ional Health - Occupational Stress [...] documented as of this encounter Care Teams Rodding Machine Tender Relationship Specialty Start Date End Date Noreen Florse APRN RESTORER LACE AND TEXTILES [address] [facility] [place] [address] PCP - General Nurse Practitioner 01/09/19 12/12/21 Sudha Greene NP [address] [address] PCP - General 11/01/22 Noreen Flores APRN RESTORER LACE AND TEXTILES [address] [facility] [place] [address] Assigned PCP 06/16/18 05/26/22 Kalyan Galvan Personal Advocate & Liaison (PAL) 08/08/19 04/26/21 [address] [facility] [address] [place] [address] [place] [address] Pharmacist Pharmacist 10/14/19 12/01/20 Eduardo Sharma MD [address] [place] [place] [address] Assigned Sleep Provider 04/02/2005/07 Marcelo Artis PA-C [address] [facility] 300 [place] [address] Assigned Musculoskeletal Provider 08/25/20 08/20/21 Rodrigo Man PA-C [address] [place] [address] [place] [address] Assigned Surgical Provider 08/25/20 11/27/20 Noreen Flores APRN RESTORER LACE AND TEXTILES [address] [facility] [place] [address] Assigned PCP 08/05/22 03/16/23 Agatha Null DPM, Podiatry/Foot and Ankle Surgery [address] [place] [address] Assigned Musculoskeletal Provider 11/04/22 documented as of this encounter
--- OUTSIDE RECORDS SUMMARY | 2023-07-02 13:27 | XMS_ITS | Encounter Summary ---
Author Name Unknown Organization [facility] Address [address] [place] [address] Care Team Providers Care Shipping Lead Person Name Role Phone Noreen Flores APRN BONDERIZER Unavailable Noreen Flores APRN BONDERIZER Primary Car e Provider Kalyan Galvan Unavailable Unavailable Eduardo Sharma MD Unavailable Marcelo Artis PA-C Unavailable Noreen Flores APRN BONDERIZER Unavailable Sudha Greene NP Primary Care Provider Agatha NullM, Podiatry /Foot and Ankle Surgery Unavailable Reason for Visit * Reason Comments Medication Refill Encounter Details Date Type Department Care Team (Late st Contact Info) Description 01/06/2021 Refill [facility] [place] [address] [place] [address] Noreen Flores APRN BONDERIZER [address] [facility] [place] [id number] Medication Refill Social History Tobacco Use Types [...] Friends and Family Patient declined 08/08/2019 Attends Episcopalian Services Patient declined 07/13 Active Member of Clubs or Organizations No 08/08/2019 Attends Club or Organization Meetings Patient pachecoed 08/08/2019 Marital Status 08/08/2019 AUDIT-C Answer Date [...] Answer Date Recorded PHQ-2 Score 0 11/10/2020 [facility] of Occupat ional Health - Occupational [...] have Coronavirus / COVID-19? No / Unsure 01/03/2021 11:48 AM CDT documented as of this encounter [...] as of this encounter Care Teams Shipping Lead Person Relationship Specialty Start Date End Date Noreen Flores APRN BONDERIZER [address] [place] [address] [place] [address] PCP - General Nurse Practitioner 01/09/19 12/12/21 Sudha Greene NP [address] [address] PCP - General 11/01/22 Noreen Flores APRN BONDERIZER [address] [place] [address] [place] [address] Assigned PCP 06/16/18 05/26/22 Kalyan Galvan Personal Advocate & Liaison (PAL) 08/08/19 04/26/21 Eduardo Sharma MD [address] [address] Assigned Sleep Provider 04/02/2005/07 Marcelo Artis [facility] [address] [address] Assigned Musculoskeletal Provider 08/25/20 08/20/21 Noreen Flores APRN BONDERIZER [address] [place] [address] [place] [address] Assigned PCP 08/05/22 03/16/23 Chaka, Agatha J, DPM, Podiatry/Foot and Ankle Surgery [address] [place] [address] Assigned Musculoskeletal Provider 11/04/22 documented as of this encounter
--- OUTSIDE RECORDS SUMMARY | 2023-07-02 13:27 | XMS_ITS | Encounter Summary ---
Author Name Unknown Organization [facility] Address [address] [place] [address] Care Team Providers Care Financial Reporting Consultant Name Role Phone Noreen Flores APRN, CNP Unavailable Noreen Flores APRN, CNP Primary Car e Provider Kalyan Galvan Unavailable Unavailable Lashae Trevino [facility] Unavailable Eduardo Sharma MD Unavailable Rios Monteiro MD Unavailable Marcelo Artis PA-C Unavailable Rodrigo Man PA-C Unavailable [phone] Noreen Flores APRN, CNP Unavailable Sudha Greene NP Primary Care Provider Agatha Null DPM, Podiatry /Foot and Ankle Surgery Unavailable Reason for Visit * Reason Onset Date Comments Refill Request 05/29/2020 omeprazole (PRIL OSEC) [address] capsule Encounter Details Date Type Department Care Team (Late st Contact Info) Description 05/29/2020 Refill [facility] [place] [address] [facility] [place] [address] Noreen Flores APRN CNP [address] [facility] [place] [address] Refill Request (omeprazole (PRILOSEC) [address] capsule) Social History Tobacco Use Types Packs/Day Years [...] Answer Date Recorded PHQ-2 Score 2 07/25/2018 [facility] [place] of Occupat ional Health - Occupational Stress [...] encounter Miscellaneous Notes * Telephone Encounter - Keyona Mantilla RN - 05/31/2020 10:42 AM CLOTH WEAVER Patient has refills remaining with requesting pharmacy. Keyona Palacios - Registered Nurse [facility] H WEAVER * Telephone Encounter - Kartik Javier - 05/29/2020 5:01 PM CST Alternative Requested: Insurance covers max 90 days in a year. Please submit PA to continue therapy. H WEAVER documented in this encounter Plan of Treatment [...] Start Date End Date Noreen Flores APRN COMPUTER PATTERNMAKER [address] [place] [address] [place] [address] PCP - General Nurse Practitioner 01/09/19 12/12/21 Sudha Greene NP [address] [address] PCP - General 11/01/22 Noreen Flores APRN COMPUTER PATTERNMAKER [address] [place] [address] [place] [address] Assigned PCP 06/16/18 05/26/22 Kalyan Galvan Personal Advocate & Liaison (PAL) 08/08/19 04/26/21 Lashae Trevino, [facility] [address] [facility] [address] Pharmacist Pharmacist 10/14/19 12/01/20 Eduardo Sharma MD [address] [place] [place], [place] [address] Assigned Sleep Provider 04/02/2005/07 [place] [address] [facility] [address] [place] [address] Assigned Musculoskeletal Provider 04/02/20 08/24/20 Marcelo Artis PA-C [address] [facility] 300 [place] [address] Assigned Musculoskeletal Provider 08/25/20 08/20/21 Rodrigo Man PA-C [address] [place] [address] [place] [address] Assigned Surgical Provider 08/25/20 11/27/20 Noreen Flores APRN COMPUTER PATTERNMAKER [address] [facility] [place] [address] Assigned PCP 08/05/22 03/16/23 Agatha Null, DPM, Podiatry/Foot and Ankle Surgery [address] [facility] 300 [place] [address] Assigned Musculoskeletal Provider 11/04/22 documented as of this encounter
--- OUTSIDE RECORDS SUMMARY | 2023-07-02 13:27 | XMS_ITS | Encounter Summary ---
Author Name Unknown Organization [facility] Address [address] [place] [address] Care Team Providers Care Road Train Driver Name Role Phone Noreen Flores APRN POST ANESTHESIA NURSE Unavailable Noreen Flores APRN POST ANESTHESIA NURSE Primary Car e Provider Kalyan Galvan Unavailable Unavailable Eduardo Sharma MD Unavailable Marcelo Artis PA-C Unavailable Noreen Flores APRN POST ANESTHESIA NURSE Unavailable Sudha Greene NP Primary Care Provider Agatha Null DPM, Podiatry /Foot and Ankle Surgery Unavailable Encounter Details Date Type Department Care Team (Late st Contact Info) Description 02/28/2021 MyC Medical Advice [address] [place] [phone] Lainey Wells Social History Tobacco Use Types [...] Friends and Family Patient declined 08/08/2019 Attends Temple Services Patient declined 07/13 Active Member of [...] Answer Date Recorded PHQ-2 Score 0 11/10/2020 [facility] [place] of Occupat ional Health - Occupational Stress [...] as of this encounter Care Teams Road Train Driver Relationship Specialty Start Date End Date Noreen Flores APRN POST ANESTHESIA NURSE [address] [facility] [address] [place], [place] [address] PCP - General Nurse Practitioner 01/09/19 12/12/21 Sudha Greene NP [address] [address] PCP - General 11/01/22 Noreen Flores APRN POST ANESTHESIA NURSE [address] [place] [address] [place] [address] Assigned PCP 06/16/18 05/26/22 Kalyan Galvan Personal Advocate & Liaison (PAL) 08/08/19 04/26/21 Eduardo Sharma MD [address] [facility] 103 [place] [address] Assigned Sleep Provider 04/02/2005/07 Marcelo Artis, PARejiC [address] [facility] 300 [place] [address] Assigned Musculoskeletal Provider 08/25/20 08/20/21 Noreen Flores APRN POST ANESTHESIA NURSE [address] [place] [address] [place] [address] Assigned PCP 08/05/22 03/16/23 Agatha Null, DPM, Podiatry/Foot and Ankle Surgery [address] [facility] 300 [place], [place] [address] Assigned Musculoskeletal Provider 11/04/22 documented as of this encounter
--- OUTSIDE RECORDS SUMMARY | 2023-07-02 13:27 | XMS_ITS | Encounter Summary ---
Author Name Unknown Organization [place] Address [address] [place] [address] Care Team Providers Care Food Assembler Commissary Kitchen Name Role Phone Noreen Flores APRN, CNP Unavailable Noreen Flores APRN TECHNICAL CONSULTANT Primary Car e Provider Kalyan Galvan Unavailable Unavailable Lashae Trevino [facility] Unavailable [phone] Eduardo Sharma MD Unavailable Rios Monteiro MD Unavailable Marcelo Artis PA-C Unavailable [phone] Rodrigo Man PA-C Unavailable [phone] Noreen Flores APRN, CNP Unavailable Sudha Greene NP Primary Care Provider Agatha Null DPM, Podiatry /Foot and Ankle Surgery Unavailable Encounter Details Date Type Department Care Team (Late st Contact Info) Description 08/02/2020 [facility] [address] [place] [address] Lainey Wells Social History Tobacco [...] Friends and Family Patient declined 08/08/2019 Attends Sabianist Services Patient declined 07/13 Active Member of [...] Answer Date Recorded PHQ-2 Score 2 07/25/2018 [facility] of Occupat ional Health - Occupational [...] COVID-19? No / Unsure 07/17/2020 1:32 PM ORACLE APPLICATION ARCHITECT documented as of this encounter Plan of [...] documented as of this encounter Care Teams Food Assembler Commissary Kitchen Relationship Specialty Start Date End Date Noreen Flores APRN TECHNICAL CONSULTANT [address] [place] [address] [place] [address] PCP - General Nurse Practitioner 01/09/19 12/12/21 Sudha Greene, [place] [address] [address] PCP - General 11/01/22 Noreen Flores APRN TECHNICAL CONSULTANT [address] [place] [address] [place] [address] Assigned PCP 06/16/18 05/26/22 Kalyan Galvan Personal Advocate & Liaison (PAL) 08/08/19 04/26/21 [facility] [address] [place] [address] [place] [address] Pharmacist Pharmacist 10/14/19 12/01/20 Eduardo Sharma MD [address] [facility] [address] [place] [address] Assigned Sleep Provider 04/02/2005/07 [place] [address] [facility] 300 [place] [address] Assigned Musculoskeletal Provider 04/02/20 08/24/20 Marcelo Artis PA-C [address] [facility] 300 [place], [place] [address] Assigned Musculoskeletal Provider 08/25/20 08/20/21 Rodrigo Man PA-C [address] [facility] 450 [place] [address] Assigned Surgical Provider 08/25/20 11/27/20 Noreen Flores APRN TECHNICAL CONSULTANT [address] [facility] [place] [address] Assigned PCP 08/05/22 03/16/23 Agatha Null DPM, Podiatry/Foot and Ankle Surgery [address] [facility] 300 [place] [address] Assigned Musculoskeletal Provider 11/04/22 documented as of this encounter
--- OUTSIDE RECORDS SUMMARY | 2023-07-02 13:28 | XMS_ITS | Encounter Summary ---
Author Name Unknown Organization [place] Address [address] [place] [address] Care Team Providers Care Handkerchief Sample Clerk Name Role Phone Noreen Flores APRN, CNP Unavailable Noreen Flores APRN, CNP Primary Car e Provider Kalyan Galvan Unavailable Unavailable Lashae Trevino [facility] Unavailable [phone] Eduardo Sharma MD Unavailable Rios Monteiro MD Unavailable [phone] Marcelo Artis PA-C Unavailable Rodrigo Man PA-C Unavailable [phone] Noreen Flores APRN, CNP Unavailable Sudha Greene NP Primary Care Provider Agatha Null DPM, Podiatry /Foot and Ankle Surgery Unavailable Reason for Visit * Reason Onset Date Comments Refill Request 08/08/2019 DULoxetine (CYMB EDIN) 30 MG capsule Encounter Details Date Type Department Care Team (Late st Contact Info) Description 08/08/2019 Refill [facility] [place] [address] [place] [address] Noreen Flores APRN CNP [address] [facility] [place] [address] Refill Request (DULoxetine (CYMBALTA) 30 MG capsule) Social History Tobacco Use Types Packs/Day [...] Friends and Family Patient declined 08/08/2019 Attends [employer] Patient declined 07/13 Active Member of [...] Answer Date Recorded PHQ-2 Score 2 07/25/2018 [facility] of Occupat ional Health - Occupational Stress [...] encounter Miscellaneous Notes * Telephone Encounter - Radha Manning RN - 08/13/2019 10:02 AM ASSISTANT WOMEN'S TENNIS COACH Noreen: I spoke with the Pt. The Pt has been taking 1, 30 mg capsule, once per day. She does not want to goup to 60 mg. Yasmin sent this in for her. Radha Manning RN [facility] -- Triage Nurse STANT WOMEN'S TENNIS COACH * Telephone Encounter - Noreen Hills APRN CNP - 08/11/2019 9:41 AM CST Please verify that she was previously taking 1 tab twice a day. If so, please switch it to 1, 60mg tab, once per day. Pls notify her of the change. STANT WOMEN'S TENNIS COACH * Telephone Encounter - Gayathri Mcallister RN - 08/11/2019 9:38 AM ASSISTANT WOMEN'S TENNIS COACH Please review sig for duloxetine, hydrochlorothiazide and metformin ( per review of last office visit 2000 mg daily of metformin, I am not sure about Duloxetine sig and dispense amount, Thank you) Gayathri Mcallister RN Message handled by Nurse Triage. STANT WOMEN'S TENNIS COACH * Telephone Encounter - Kartik Javier - 08/08/2019 5:46 PM CST Also Review Rx directions for Metformin hydrochloride 500 mg. Pharmacy is requesting clarification. STANT WOMEN'S TENNIS COACH * Telephone Encounter - Kartik Javier - 08/08/2019 2:39 PM CST Script Clarification: Rx has two sets of directions. Please send new Rx with the Proper Directions. Thanks. STANT WOMEN'S TENNIS COACH documented in this encounter Plan of Treatment Not on file documented as of this encounter Visit Diagnoses Diagnosis Fibromyalgia Mylagia and myositis, unspecified documented in this encounter Additional Health Concerns Infection Onset Date Last Indicated Resolved Time Rule Out COVID-19 08/25/2020 08/25/2020 08/26/2020 3:23 PM CDT Rule Out COVID-19 11/26/2022 11/26/2022 11/27/2022 3:38 PM CDT Assessment Noted Time PHQ-9 Depression Total Score: 9 08/09/19 20 7:03 AM ASSISTANT WOMEN'S TENNIS COACH documented as of this encounter Care Teams Handkerchief Sample Clerk Relationship Specialty Start Date End Date Noreen Flores APRN INSPECTOR AND TESTER [address] [place] [address] [place] [address] PCP - General Nurse Practitioner 01/09/19 12/12/21 Sudha Greene NP [address] [address] PCP - General 11/01/22 Noreen Flores APRN INSPECTOR AND TESTER [address] [place] [address] [place] [address] Assigned PCP 06/16/18 05/26/22 Kalyan Galvan Personal Advocate & Liaison (PAL) 08/08/19 04/26/21 [facility] [address] [place] [address] Pharmacist Pharmacist 10/14/19 12/01/20 Eduardo Sharma MD [address] [place] [address] [place] [address] Assigned Sleep Provider 04/02/2005/07 [place] [address] [facility] [address] [place] [address] Assigned Musculoskeletal Provider 04/02/20 08/24/20 Marcelo Artis PA-C [address] [address] Assigned Musculoskeletal Provider 08/25/20 08/20/21 Rodrigo Man PA-C [address] [facility] [address] [place] [address] Assigned Surgical Provider 08/25/20 11/27/20 Noreen Flores APRN INSPECTOR AND TESTER [address] [facility] [place] [id number] Assigned PCP 08/05/22 03/16/23 Agatha Null DPM, Podiatry/Foot and Ankle Surgery [address] [facility] [address] [place] [address] Assigned Musculoskeletal Provider 11/04/22 documented as of this encounter
--- OUTSIDE RECORDS SUMMARY | 2023-07-02 13:28 | XMS_ITS | Encounter Summary ---
Author Name Unknown Organization [place] Address [address] [place] [address] Care Team Providers Care Hairspring Ii Inspector Name Role Phone Noreen Flores APRN, CNP Unavailable Noreen Flores APRN FACTORY MAINTENANCE MANAGER Primary Car e Provider Kalyan Galvan Unavailable Unavailable Lashae Trevino [facility] Unavailable Eduardo Sharma MD Unavailable Rios Monteiro MD Unavailable [phone] Marcelo Artis PA-C Unavailable [phone] Rodrigo Man PA-C Unavailable [phone] Noreen Flores APRN, CNP Unavailable Sudha Greene NP Primary Care Provider Agatha Null DPM, Podiatry /Foot and Ankle Surgery Unavailable Encounter Details Date Type Department Care Team (Late st Contact Info) Description 10/06/2019 [facility] [address] [place] [address] Patricia Bonilla Social History Tobacco Use Types Packs/Day Years [...] Answer Date Recorded PHQ-2 Score 2 07/25/2018 [facility] of Occupat ional Health - Occupational [...] have Coronavirus / COVID-19? No / Unsure 10/07/2019 10:17 AM CDT documented as of this encounter [...] Total Score: 9 08/09/19 20 7:03 AM BUILDINGS AND GROUNDS DIRECTOR documented as of this encounter Care Teams Hairspring Ii Inspector Relationship Specialty Start Date End Date Noreen Flores APRN FACTORY MAINTENANCE MANAGER [address] [place] [address] [place] [address] PCP - General Nurse Practitioner 01/09/19 12/12/21 Sudha Greene NP [address] [address] PCP - General 11/01/22 Noreen Flores APRN FACTORY MAINTENANCE MANAGER [address] [place] [address] [place] [address] Assigned PCP 06/16/18 05/26/22 Kalyan Galvan Personal Advocate & Liaison (PAL) 08/08/19 04/26/21 [facility] [address] [facility] [place] [address] Pharmacist Pharmacist 10/14/19 12/01/20 Eduardo Sharma MD [address] [facility] [address] [place] [address] Assigned Sleep Provider 04/02/2005/07 [place] [address] [facility] [address] [place] [address] Assigned Musculoskeletal Provider 04/02/20 08/24/20 Marcelo Artis PA-C [address] [facility] [address] [place] [address] Assigned Musculoskeletal Provider 08/25/20 08/20/21 Rodrigo Man PA-C [address] [facility] [address] [place] [address] Assigned Surgical Provider 08/25/20 11/27/20 Noreen Flores APRN FACTORY MAINTENANCE MANAGER [address] [facility] [address] Assigned PCP 08/05/22 03/16/23 Agatha Null DPM, Podiatry/Foot and Ankle Surgery [address] [facility] [address] [place] [address] Assigned Musculoskeletal Provider 11/04/22 documented as of this encounter
--- OUTSIDE RECORDS SUMMARY | 2023-07-02 13:28 | XMS_ITS | Encounter Summary ---
Author Name Unknown Organization [place] Address [address] [place] [address] Care Team Providers Care Shift Lab Technician Name Role Phone Vanda Guerrero MD Primary Care Provider [phone] Vanda Guerrero MD Unavailable [phone] Jeana-Noreen Miles APRN MARBLE CUTTER OPERATOR Unavailable [facility]-Noreen Miles APRN MARBLE CUTTER OPERATOR Unavailable [facility]-JdNoreen castro APRN MARBLE CUTTER OPERATOR Primary Car e Provider Kalyan Galvan Unavailable Unavailable Lashae Trevino [facility] Unavailable Eduardo Sharma MD Unavailable Rios Monteiro MD Unavailable [phone] Marcelo Artis PA-C Unavailable [phone] Rodrigo Man PA-C Unavailable [phone] Jeana-Noreen Miles APRN MARBLE CUTTER OPERATOR Unavailable Sudha Greene NP Primary Care Provider Agatha Null DPM, Podiatry /Foot and Ankle Surgery Unavailable Reason for Visit * Reason Onset Date Comments Refill Request 03/04/2018 loratadine-pseud oePHEDrine ([facility] ALLERGY RELIEF-D) 10- 240 MG per 24 hr tablet Encounter Details Date Type Department Care Team (Late st Contact Info) Description 03/04/2018 Refill [facility] [place] [address] [place] [address] Vanda Guerrero MD [address] [facility] [place] [address] Refill Request (loratadine-pseudoePHED rine ([facility] ALLERGY RELIEF-D) 10-240 MG per 24 hr tablet) Social History Tobacco Use Types Packs/Day Years Used Date Smoking Tobacco: Never Smokeless Tobacco: Never Alcohol Use Standard Drinks/Week Comments Yes 0 (1 standard drink = 0.6 oz pur e alcohol) Rare Sex and Gender Information Value Date Recorded Sex Assigned at Not on file Gender Identity Female 08/26/2020 9:05 PM CDT Sexual Orientation Not on file documented as of this encounter Miscellaneous Notes * Telephone Encounter - Adali Pierson - 03/05/2018 3:06 PM CDT Faxed script to pharmacy on file. Thanks Chema Allan Team Coodinator * Telephone Encounter - Vanda Guerrero MD - 03/05/2018 9:42 AM CDT Script printed, signed, and in station out basket or on MA/SEO TEAM LEAD/RN desk * Telephone Encounter - Kartik Javier - 03/04/2018 [...] Visit Diagnoses Diagnosis Chronic seasonal allergic rhinitis, unspecified trigger documented in this encounter Additional Health Concerns Infection Onset Date Last Indicated Resolved Time Rule Out COVID-19 08/25/2020 08/25/2020 08/26/2020 3:23 PM CDT Rule Out COVID-19 11/26/2022 11/26/2022 11/27/2022 3:38 PM CDT Assessment Noted Time PHQ-9 Depression Total Score: 8 02/19/20 18 7:04 AM CDT documented as of this encounter Care Teams Shift Lab Technician Relationship Specialty Start Date End Date Vanda Guerrero MD [address] [place] [address] [place] [address] PCP - General Internal Medicine 04/08/15 01/08/19 Vanda Guerrero MD [address] [place] [address] [place] [address] PCP - Assigned PCP 07/24/16 06/15/18 Noreen Flores APRN MARBLE CUTTER OPERATOR [address] [place] [address] [place] [address] PCP - Assigned PCP 06/16/18 08/13/18 Noreen Flores APRN MARBLE CUTTER OPERATOR [address] [place] [address] [place] [address] PCP - General Nurse Practitioner 01/09/19 12/12/21 Sudha Greene NP [address] [address] PCP - General 11/01/22 Noreen Flores APRN MARBLE CUTTER OPERATOR [address] [facility] [place] [address] Assigned PCP 06/16/18 05/26/22 Kalyan Galvan Personal Advocate & Liaison (PAL) 08/08/19 04/26/21 [facility] [address] [place] [address] [place] [address] Pharmacist Pharmacist 10/14/19 12/01/20 Eduardo Sharma MD [address] [place] [address] [place] [address] Assigned Sleep Provider 04/02/2005/07 [place] [address] [facility] [address] [place] [address] [place] [address] Assigned Musculoskeletal Provider 04/02/20 08/24/20 Marcelo Artis PA-C [address] [facility] [address] [place] [address] [place] [address] Assigned Musculoskeletal Provider 08/25/20 08/20/21 Rodrigo Man PA-C [address] [place] [address] [place] [address] Assigned Surgical Provider 08/25/20 11/27/20 Noreen Flores APRN MARBLE CUTTER OPERATOR [address] [facility] [place] [address] Assigned PCP 08/05/22 03/16/23 Agatha Null, DPM, Podiatry/Foot and Ankle Surgery [address] [place] [address] [place] [address] Assigned Musculoskeletal Provider 11/04/22 documented as of this encounter
--- OUTSIDE RECORDS SUMMARY | 2023-07-02 13:28 | XMS_ITS | Encounter Summary ---
Author Name Unknown Organization [place] Address [address] [place] [address] Care Team Providers Care Powertrain Control Systems Engineer Name Role Phone Noreen Flores APRN, CNP Unavailable Noreen Flores APRN, CNP Primary Car e Provider Kalyan Galvan Unavailable Unavailable Lashae Trevino [facility] Unavailable [phone] Eduardo Sharma MD Unavailable Rios Monteiro MD Unavailable Marcelo Artis PA-C Unavailable [phone] Rodrigo Man PA-C Unavailable [phone] Noreen Flores APRN, CNP Unavailable Sudha Greene NP Primary Care Provider Agatha Null DPM, Podiatry /Foot and Ankle Surgery Unavailable Reason for Visit * Reason Onset Date Comments Medication Refill 04/25/2019 metFORMIN (GLU COPHAGE) 500 MG tablet Encounter Details Date Type Department Care Team (Late st Contact Info) Description 04/25/2019 Refill [facility] [place] [address] [place] [address] Noreen Flores APRN CNP [address] [facility] [place] [address] Medication Refill (metFORMIN (GLUCOPHAGE) 500 MG tablet) Social History Tobacco Use Types Packs/Day Years Used Date Smoking Tobacco: Never Smokeless Tobacco: Never Alcohol Use Standard Drinks/Week Comments Yes 0 (1 standard drink = 0.6 oz pur e alcohol) Rare PHQ-2 Answer Date Recorded PHQ-2 Score 2 07/25/2018 Sex and Gender Information Value Date Recorded Sex Assigned at Not on file Gender Identity Female 08/26/2020 9:05 PM CDT Sexual Orientation Not on file documented as of this encounter Miscellaneous Notes * Telephone Encounter - Kimberley Bryan RN - 04/28/2019 11:47 AM EDUCATIONAL THERAPIST Routing refill request to provider for review/approval because: Labs not current: LDL, creatinine Due for appointment ATIONAL THERAPIST * Telephone Encounter - Lara Villalba - 04/25/2019 [...] & Orders section of the refill encounter. ATIONAL THERAPIST documented in this encounter Plan of [...] Noted Time PHQ-9 Depression Total Score: 10 019 10:18 AM CDT documented as of this encounter Care Teams Powertrain Control Systems Engineer Relationship Specialty Start Date End Date Noreen Flores APRN CNP [address] [place] [address] [place] [address] PCP - General Nurse Practitioner 01/09/19 12/12/21 Sudha Greene NP [address] [address] PCP - General 11/01/22 Noreen Flores APRN FORM PRESSER [address] [facility] [place] [address] Assigned PCP 06/16/18 05/26/22 aKlyan Galvan Personal Advocate & Liaison (PAL) 08/08/19 04/26/21 [facility] [address] [place] [address] [place] [address] Pharmacist Pharmacist 10/14/19 12/01/20 Eduardo Sharma MD [address] [place] [address] [place] [address] Assigned Sleep Provider 04/02/2005/07 [place] [address] [place] [address] [place] [address] Assigned Musculoskeletal Provider 04/02/20 08/24/20 Marcelo Artis PA-C [address] [place] [address] [place] [address] Assigned Musculoskeletal Provider 08/25/20 08/20/21 Rodrigo Man PA-C [address] [place] [address] [place] [address] Assigned Surgical Provider 08/25/20 11/27/20 Noreen Flores APRN FORM PRESSER [address] [facility] [place] [address] Assigned PCP 08/05/22 03/16/23 Chaka, Agatha J, DPM, Podiatry/Foot and Ankle Surgery [address] [place] [address] Assigned Musculoskeletal Provider 11/04/22 documented as of this encounter
--- OUTSIDE RECORDS SUMMARY | 2023-07-02 13:28 | XMS_ITS | Encounter Summary ---
Author Name Unknown Organization [place] Address [address] [place] [address] Care Team Providers Care Property Disposal Officer Name Role Phone Vanda Guerrero MD Primary Care Provider [phone] Vanda Guerrero MD Unavailable [phone] Jeana-Noreen Miles APRN COOK CHIEF Unavailable [facility]-Noreen Miles APRN COOK CHIEF Unavailable [facility]-JdNoreen castro APRN COOK CHIEF Primary Car e Provider Kalyan Galvan Unavailable Unavailable Lashae Trevino [facility] Unavailable [phone] Eduardo Sharma MD Unavailable Rios Monteiro MD Unavailable Marcelo Artis PA-C Unavailable Rodrigo Man PA-C Unavailable [phone] Jeana-JdNoreen castro APRN COOK CHIEF Unavailable Sudha Greene NP Primary Care Provider Agatha Null DPM, Podiatry /Foot and Ankle Surgery Unavailable Reason for Visit * Reason Comments Medication Refill zolpidem (AMBIEN) 5 MG tablet Encounter Details Date Type Department Care Team (Late st Contact Info) Description 02/20/2018 Refill [facility] [address] [place] [address] [address] [place] [address] Vanda Guerrero MD [address] [facility] [place] [address] Medication Refill (zolpidem (AMBIEN) 5 MG tablet) Social History [...] * Telephone Encounter - Adali Pierson - 02/21/2018 4:10 PM CDT Faxed script to pharmacy on file. Thanks Chema Allan Team Coodinator * Telephone Encounter - Vanda Guerrero MD - 02/21/2018 3:54 PM CDT Script printed, signed, and in station out basket or on MA/CAMELID FIBER SORTER/RN desk * Telephone Encounter - Gayathri Mcallister RN - 02/21/2018 3:33 PM CDT NON LICENSED NUCLEAR PLANT OPERATOR checked: patient refilled: 06/12, 07/07 and 10/04 all for #15 tablets. Has not picked up all refills, but the script . Gayathri Mcallister RN Message handled by Nurse Triage. * Telephone Encounter - Marisa Matthew - 02/21/2018 [...] documented as of this encounter Care Teams Property Disposal Officer Relationship Specialty Start Date End Date Vanda Guerrero MD [address] [place] [address] [place] [address] PCP - General Internal Medicine 04/08/15 01/08/19 Vanda Guerrero MD [address] [place] [address] [place] [address] PCP - Assigned PCP 07/24/16 06/15/18 Noreen Flores APRN COOK CHIEF [address] [place] [address] [place] [address] PCP - Assigned PCP 06/16/18 08/13/18 Noreen Flores APRN COOK CHIEF [address] [place] [address] [place] [address] PCP - General Nurse Practitioner 01/09/19 12/12/21 Sudha Greene NP [address] [address] PCP - General 11/01/22 Noreen Flores APRN COOK CHIEF 3[address] [facility] [place] [address] Assigned PCP 06/16/18 05/26/22 Kalyan Galvan Personal Advocate & Liaison (PAL) 08/08/19 04/26/21 Lashae Trevino, [facility] [address] [facility] [place] [id number] Pharmacist Pharmacist 10/14/19 12/01/20 Eduardo Sharma MD [address] [place] [address] [place] [address] Assigned Sleep Provider 04/02/2005/07 [place] [address] [place] [address] [place] [address] Assigned Musculoskeletal Provider 04/02/20 08/24/20 Marcelo Artis PA-C [address] [place] [address] [place] [address] Assigned Musculoskeletal Provider 08/25/20 08/20/21 Rodrigo Man PA-C [address] [place] [address] [place] [address] Assigned Surgical Provider 08/25/20 11/27/20 Noreen Flores APRN COOK CHIEF [address] [facility] [place] [address] Assigned PCP 08/05/22 03/16/23 Agatha Null DPM, Podiatry/Foot and Ankle Surgery [address] [place] [address] Assigned Musculoskeletal Provider 11/04/22 documented as of this encounter
--- OUTSIDE RECORDS SUMMARY | 2023-07-02 13:28 | XMS_ITS | Encounter Summary ---
Author Name Unknown Organization [place] Address [address] [place] [address] Care Team Providers Care Furniture Arranger Name Role Phone Vanda Guerrero MD Primary Care Provider [phone] Vanda Guerrero MD Unavailable [phone] Jeana-Noreen Miles APRN FLORAL MANAGER Unavailable [facility]-Noreen Miles APRN FLORAL MANAGER Unavailable [facility]-JdNoreen castro APRN FLORAL MANAGER Primary Car e Provider Kalyan Galvan Unavailable Unavailable Lashae Trevino [facility] Unavailable [phone] Eduardo Sharma MD Unavailable Rios Monteiro MD Unavailable [phone] Marcelo Artis PA-C Unavailable Rodrigo Man PA-C Unavailable [phone] Jeana-JdNoreen castro APRN FLORAL MANAGER Unavailable Sudha Greene NP Primary Care Provider Agatha Null DPM, Podiatry /Foot and Ankle Surgery Unavailable Encounter Details Date Type Department Care Team (Late st Contact Info) Description 02/17/2018 [facility] [address] [address] Liya Gonzalez RN Social History Tobacco Use Types Packs/Day [...] as of this encounter Care Teams Furniture Arranger Relationship Specialty Start Date End Date Vanda Guerrero MD [address] [place] [address] [place] [address] PCP - General Internal Medicine 04/08/15 01/08/19 Vanda Guerrero MD [address] [place] [address] [place] [address] PCP - Assigned PCP 07/24/16 06/15/18 Noreen Flores APRN FLORAL MANAGER [address] [place] [address] [place] [address] PCP - Assigned PCP 06/16/18 08/13/18 Noreen Flores APRN FLORAL MANAGER [address] [place] [address] [place] [address] PCP - General Nurse Practitioner 01/09/19 12/12/21 Sudha Greene NP [address] [address] PCP - General 11/01/22 Noreen Flores APRN FLORAL MANAGER [address] [place] [address] [place] [address] Assigned PCP 06/16/18 05/26/22 Kalyan Galvan Personal Advocate & Liaison (PAL) 08/08/19 04/26/21 Lashae Trevino, [facility] [address] [place] [address] [place] [id number] Pharmacist Pharmacist 10/14/19 12/01/20 Eduardo Sharma MD [address] [place] [address] [place] [address] Assigned Sleep Provider 04/02/2005/07 [place] [address] [place] [address] 300 [place] [address] Assigned Musculoskeletal Provider 04/02/20 08/24/20 Marcelo Artis PA-C [address] [facility] [address] [place] [address] Assigned Musculoskeletal Provider 08/25/20 08/20/21 Rodrigo Man PA-C [address] [place] [address] [place] [address] Assigned Surgical Provider 08/25/20 11/27/20 Noreen Flores APRN FLORAL MANAGER [address] [place] [address] [place] [address] Assigned PCP 08/05/22 03/16/23 Agatha Null DPM, Podiatry/Foot and Ankle Surgery [address] [place] [address] Assigned Musculoskeletal Provider 11/04/22 documented as of this encounter
--- OUTSIDE RECORDS SUMMARY | 2023-07-02 13:28 | XMS_ITS | Encounter Summary ---
Author Name Unknown Organization [facility] Address [address] [place] [address] Care Team Providers Care Airbrush Artist Technical Name Role Phone Vanda Guerrero MD Primary Care Provider [phone] Vanda Guerrero MD Unavailable [phone] Jeana-Nroeen Miles APRN ORGANIC SEARCH LEAD Unavailable [facility]Noreen Miles APRN ORGANIC SEARCH LEAD Unavailable [facility]-JdNoreen castro APRN ORGANIC SEARCH LEAD Primary Car e Provider Kalyan Galvan Unavailable Unavailable Lashae Trevino [facility] Unavailable [phone] Eduardo Sharma MD Unavailable Rios Monteiro MD Unavailable Marcelo Artis PA-C Unavailable Rodrigo Man PA-C Unavailable Jeana-JdNoreen castro APRN ORGANIC SEARCH LEAD Unavailable Sudha Greene NP Primary Care Provider Agatha Null DPM, Podiatry /Foot and Ankle Surgery Unavailable Reason for Visit * Reason Comments Medication Refill ONETOUCH ULTRA test strip; simvastatin (ZOCOR) 20 MG tablet Encounter Details Date Type Department Care Team (Late st Contact Info) Description 12/21/2017 Refill [facility] [address] [place] [address] Vanda Guerrero MD [address] [place] [address] Medication Refill (ONETOUCH ULTRA test strip; simvastatin (ZOCOR) 20 MG tablet) Social History Tobacco Use Types [...] encounter Miscellaneous Notes * Telephone Encounter - Day Greene RN - 12/25/2017 10:56 AM CDT Prescription approved [place] [facility] [place] Protocol. Day Greene RN, BSN * Telephone Encounter - Kartik Javier - 12/21/2017 4:51 PM CDT Requested Prescriptions [...] Columns in Meds & Orders section of therefill encounter. Passed - Patient is 16 years [...] Diagnoses Diagnosis Type 2 diabetes mellitus without complication (H) Hyperlipidemia LDL goal <100 Other and unspecified hyperlipidemia documented in this encounter Additional Health Concerns Infection Onset Date Last Indicated Resolved Time Rule Out COVID-19 08/25/2020 08/25/2020 08/26/2020 3:23 PM CDT Rule Out COVID-19 11/26/2022 11/26/2022 11/27/2022 3:38 PM CDT Assessment Noted Time PHQ-9 Depression Total Score: 12 018 1:02 PM PRACTICE ARCHITECT documented as of this encounter Care Teams Airbrush Artist Technical Relationship Specialty Start Date End Date Vanda Guerrero MD [address] [facility] [place] [address] PCP - General Internal Medicine 04/08/15 01/08/19 Vanda Guerrero MD [address] [facility] [place] [address] PCP - Assigned PCP 07/24/16 06/15/18 Noreen Flores APRN ORGANIC SEARCH LEAD [address] [place] [address] [place] [address] PCP - Assigned PCP 06/16/18 08/13/18 Noreen Flores APRN ORGANIC SEARCH LEAD [address] [place] [address] [place] [address] PCP - General Nurse Practitioner 01/09/19 12/12/21 Sudha Greene NP [address] [address] PCP - General 11/01/22 Noreen Flores APRN ORGANIC SEARCH LEAD [address] [place] [address] [place] [address] Assigned PCP 06/16/18 05/26/22 Kalyan Galvan Personal Advocate & Liaison (PAL) 08/08/19 04/26/21 Lashae Trevino, [facility] [address] [facility] [place] [address] Pharmacist Pharmacist 10/14/19 12/01/20 Eduardo Sharma MD [address] [facility] [address] [place], [place] [address] Assigned Sleep Provider 04/02/2005/07 [place] [address] [facility] 300 [place] [address] Assigned Musculoskeletal Provider 04/02/20 08/24/20 Marcelo Artis PA-C [address] [facility] 300 [place] [address] Assigned Musculoskeletal Provider 08/25/20 08/20/21 Rodrigo Man PA-C [address] [facility] [address] [place] [address] Assigned Surgical Provider 08/25/20 11/27/20 Noreen Flores APRN ORGANIC SEARCH LEAD [address] [facility] [place] [id number] Assigned PCP 08/05/22 03/16/23 Agatha Null DPM, Podiatry/Foot and Ankle Surgery [address] [facility] [address] [place] [address] Assigned Musculoskeletal Provider 11/04/22 documented as of this encounter
--- OUTSIDE RECORDS SUMMARY | 2023-07-02 13:28 | XMS_ITS | Encounter Summary ---
Author Name Unknown Organization [place] Address [address] [place] [address] Care Team Providers Care Administrator Name Role Phone Noreen Flores APRN, CNP Unavailable Noreen Flores APRN, CNP Primary Car e Provider Kalyan Galvan Unavailable Unavailable Lashae Trevino [facility] Unavailable [phone] Eduardo Sharma MD Unavailable Rios Monteiro MD Unavailable [phone] Marcelo Artis PA-C Unavailable [phone] Rodrigo Man PA-C Unavailable [phone] Noreen Flores APRN, CNP Unavailable Sudha Greene NP Primary Care Provider Agatha Null DPM, Podiatry /Foot and Ankle Surgery Unavailable Encounter Details Date Type Department Care Team (Late st Contact Info) Description 05/31/2019 [facility] [place] [address] [place] [address] Noreen Flores APRN CNP [address] [facility] [place] [address] Chronic seasonal allergic rhinitis Social History Tobacco Use Types Packs/Day Years [...] encounter Miscellaneous Notes * Telephone Encounter - Angel Faria RN - 06/02/2019 8:06 AM HARDWARE DESIGN ENGINEER Previous Rx did not successful e-scribe to pharmacy. Routing to PCP for approval. Please sent via fax. Multiple attempts in the past year with unsuccessful e-scribing. Route back to [facility] when completed. - Radu Faria RN Triage [facility] WARE DESIGN ENGINEER documented in this encounter Plan [...] as of this encounter Care Teams Administrator Relationship Specialty Start Date End Date Noreen Flores APRN SUPERVISOR PILE DRIVING [address] [place] [address] [place] [address] PCP - General Nurse Practitioner 01/09/19 12/12/21 Sudha Greene NP [address] [address] PCP - General 11/01/22 Noreen Flores APRN SUPERVISOR PILE DRIVING [address] [facility] [place] [address] Assigned PCP 06/16/18 05/26/22 Kalyan Galvan Personal Advocate & Liaison (PAL) 08/08/19 04/26/21 Lashae Trevino, [facility] [address] [facility] [place] [id number] Pharmacist Pharmacist 10/14/19 12/01/20 Eduardo Sharma MD [address] [place] [address] [place], [place] [address] Assigned Sleep Provider 04/02/2005/07 [place] [address] [facility] [place] [address] [place], [place] [address] Assigned Musculoskeletal Provider 04/02/20 08/24/20 Marcelo Artis PA-C [address] [facility] [place] [address] [place] [address] Assigned Musculoskeletal Provider 08/25/20 08/20/21 Rodrigo Man PA-C [address] [place] [address] [place] [address] Assigned Surgical Provider 08/25/20 11/27/20 Noreen Flores APRN SUPERVISOR PILE DRIVING [address] [facility] [place] [address] Assigned PCP 08/05/22 03/16/23 Agatha Null, DPM, Podiatry/Foot and Ankle Surgery [address] [facility] 300 [place] [address] Assigned Musculoskeletal Provider 11/04/22 documented as of this encounter
--- OUTSIDE RECORDS SUMMARY | 2023-07-02 13:28 | XMS_ITS | Encounter Summary ---
Author Name Unknown Organization [place] Address [address] [place] [address] Care Team Providers Care Appellate Law Clerk Name Role Phone Noreen Flores APRN, CNP Unavailable Noreen Flores APRN RETURN AGENT AIRPORT Primary Car e Provider Kalyan Galvan Unavailable Unavailable Lashae Trevino [facility] Unavailable Eduardo Sharma MD Unavailable Rios Monteiro MD Unavailable Marcelo Artis PA-C Unavailable Rodrigo Man PA-C Unavailable [phone] Noreen Flores APRN, CNP Unavailable Sudha Greene NP Primary Care Provider Agatha Null DPM, Podiatry /Foot and Ankle Surgery Unavailable Encounter Details Date Type Department Care Team (Late st Contact Info) Description 05/30/2019 [facility] [address] [place] [address] Christi Panda MA Social History [...] documented as of this encounter Care Teams Appellate Law Clerk Relationship Specialty Start Date End Date Noreen Flores APRN RETURN AGENT AIRPORT [address] [place] [address] [place] [address] PCP - General Nurse Practitioner 01/09/19 12/12/21 Sudha Greene, MAURIC[place] [address] [address] PCP - General 11/01/22 Noreen Flores APRN RETURN AGENT AIRPORT [address] [place] [address] [place] [address] Assigned PCP 06/16/18 05/26/22 Klayan Galvan Personal Advocate & Liaison (PAL) 08/08/19 04/26/21 Lashae Trevino [facility] [place] [address] Pharmacist Pharmacist 10/14/19 12/01/20 Eduardo Sharma MD [address] [place] [address] Assigned Sleep Provider 04/02/2005/07 [place] [address] [address] Assigned Musculoskeletal Provider 04/02/20 08/24/20 Marcelo Artis PA-C [address] [address] Assigned Musculoskeletal Provider 08/25/20 08/20/21 Rodrigo Man PA-C [address] [address] Assigned Surgical Provider 08/25/20 11/27/20 Noreen Flores APRN RETURN AGENT AIRPORT [address] [facility] [place] [address] Assigned PCP 08/05/22 03/16/23 Agatha Null, DPM, Podiatry/Foot and Ankle Surgery [address] [facility] 300 [place] [address] Assigned Musculoskeletal Provider 11/04/22 documented as of this encounter
--- OUTSIDE RECORDS SUMMARY | 2023-07-02 13:28 | XMS_ITS | Encounter Summary ---
Author Name Unknown Organization [facility] Address [address] [place] [address] Care Team Providers Care Sales Intern Name Role Phone Noreen Flores APRN, CNP Unavailable Noreen Flores APRN, CNP Primary Car e Provider Kalyan Galvan Unavailable Unavailable Lashae Trevino [facility] Unavailable Eduardo Sharma MD Unavailable Rios Monteiro MD Unavailable Marcelo Artis PA-C Unavailable Rodrigo Man PA-C Unavailable [phone] Noreen Flores APRN, CNP Unavailable Sudha Greene NP Primary Care Provider [phone] Agatha Null DPM, Podiatry /Foot and Ankle Surgery Unavailable Encounter Details Date Type Department Care Team (Late st Contact Info) Description 10/28/2019 [facility] [place] [facility] [place] [address] [place] [address] Noreen Flores APRN CNP [address] [facility] [place] [address] Social History Tobacco [...] Answer Date Recorded PHQ-2 Score 2 07/25/2018 [facility] [place] of Occupat ional Health - Occupational Stress [...] have Coronavirus / COVID-19? No / Unsure 10/21/2019 3:37 PM CDT documented as of this encounter Miscellaneous Notes * Telephone Encounter - Noreen Hills APRN CNP - 11/21/2019 3:27 PM CDT T2 hyperintense 4 mm lesion within the posterior cortex of the right kidney is incompletely characterized, statistically likely benign. * Telephone Encounter - Nick Parada RN - 11/21/2019 10:06 AM CDT Noreen, Please see pt's [facility] message and advise. Should pt contact ortho for interpretation? YOSELIN: 11/11/19 Chest pain Thank you Nick Parada RN on 11/21/2019 at 10:08 AM Route back to triage with recommendations to notify pt documented in this encounter Plan of Treatment Not on file documented as of this encounter Visit Diagnoses Not on filedocumented in this encounter Additional Health Concerns Infection Onset Date Last Indicated Resolved Time Rule Out COVID-19 08/25/2020 08/25/2020 08/26/2020 3:23 PM CDT Rule Out COVID-19 11/26/2022 11/26/2022 11/27/2022 3:38 PM CDT Assessment Noted Time PHQ-9 Depression Total Score: 9 08/09/19 20 7:03 AM MASTER COASTAL WATERS documented as of this encounter Care Teams Sales Intern Relationship Specialty Start Date End Date Noreen Flores APRN CNP [address] [place] [address] [place] [address] PCP - General Nurse Practitioner 01/09/19 12/12/21 Sudha Greene NP [address] [address] PCP - General 11/01/22 Noreen Flores APRN CASH REGISTER SERVICER [address] [facility] [place] [address] Assigned PCP 06/16/18 05/26/22 Kalyan Galvan Personal Advocate & Liaison (PAL) 08/08/19 04/26/21 Lashae Trevino, [facility] [place] [phone] Pharmacist Pharmacist 10/14/19 12/01/20 Eduardo Sharma MD [address] [place] [address] [place], [place] [address] Assigned Sleep Provider 04/02/2005/07 [place] [address] [place] [address] [place] [address] Assigned Musculoskeletal Provider 04/02/20 08/24/20 Marcelo Artis PA-C [address] [facility] [address] [address] [place] [address] [place] [address] Assigned Musculoskeletal Provider 08/25/20 08/20/21 Rodrigo Man PA-C [address] [place] [address] [place] [address] Assigned Surgical Provider 08/25/20 11/27/20 Noreen Flores APRN CASH REGISTER SERVICER [address] [place] [address] [place] [address] Assigned PCP 08/05/22 03/16/23 Agatha Null DPM, Podiatry/Foot and Ankle Surgery [address] [place] [address] Assigned Musculoskeletal Provider 11/04/22 documented as of this encounter
--- OUTSIDE RECORDS SUMMARY | 2023-07-02 13:28 | XMS_ITS | Encounter Summary ---
Author Name Unknown Organization [place] Address [address] [place] [address] Care Team Providers Care Cyber Forensic Specialist Name Role Phone Noreen Flores APRN, CNP Unavailable Noreen Flores APRN, CNP Primary Car e Provider Kalyan Galvan Unavailable Unavailable Lashae Trevino [facility] Unavailable Eduardo Sharma MD Unavailable Rios Monteiro MD Unavailable Marcelo Artis PA-C Unavailable Rodrigo Man PA-C Unavailable [phone] Noreen Flores APRN, CNP Unavailable Sudha Greene NP Primary Care Provider Agatha Null DPM, Podiatry /Foot and Ankle Surgery Unavailable Encounter Details Date Type Department Care Team (Late st Contact Info) Description 12/23/2019 [facility] [place] [facility] [place] [address] [place] [address] Noreen Flores APRN CNP [address] [facility] [place] [address] Chronic seasonal allergic [...] Friends and Family Patient declined 08/08/2019 Attends Scientology Services Patient declined 07/13 Active Member of [...] Answer Date Recorded PHQ-2 Score 2 07/25/2018 [facility] [place] of Occupat ional Health - Occupational Stress [...] have Coronavirus / COVID-19? No / Unsure 12/16/2019 8:32 AM CDT documented as of this encounter Miscellaneous Notes * Telephone Encounter - Lainey Wells - 01/15/2020 10:52 AM CDT See message to pt. Lainey Russell on 01/15/2020 at 10:52 AM * Telephone Encounter - Noreen Hills APRN CNP - 01/15/2020 10:10 AM CDT Please schedule check in end of February with me virtual. At least 25 minutes * Telephone Encounter - Lainey Wells - 12/23/2019 2:49 PM CDT I called and spoke to the pharmacy and they are not having issues but the rx was verbally given to the pharmacy. Lainey Wells on 12/23/2019 at 2:56 PM * Telephone Encounter - Noreen Hills APRN CNP - 12/23/2019 2:11 PM CDT [facility] call [facility] and find out why they are having issues with the claritin D. I've sent it over multiple times. documented in this encounter Plan of Treatment [...] Total Score: 9 08/09/19 20 7:03 AM VALUE STREAM COACH documented as of this encounter Care Teams Cyber Forensic Specialist Relationship Specialty Start Date End Date Noreen Flores APRN SALESPERSON TERRAZZO TILES [address] [facility] [place] [address] PCP - General Nurse Practitioner 01/09/19 12/12/21 Sudha Greene NP [address] [address] PCP - General 11/01/22 [facility]N SALESPERSON TERRAZZO TILES [address] [place] [address] [place] [address] Assigned PCP 06/16/18 05/26/22 Kalyan Galvan Personal Advocate & Liaison (PAL) 08/08/19 04/26/21 [facility] [address] [place] [address] [place] [address] Pharmacist Pharmacist 10/14/19 12/01/20 Eduardo Sharma MD [address] [place] [address] [place] [address] Assigned Sleep Provider 04/02/2005/07 [place] [address] [facility] [place] [address] [place] [address] Assigned Musculoskeletal Provider 04/02/20 08/24/20 Marcelo Artis PA-C [address] [facility] [place] [address] [place] [address] Assigned Musculoskeletal Provider 08/25/20 08/20/21 Rodrigo Man PA-C [address] [place] [address] [place] [address] Assigned Surgical Provider 08/25/20 11/27/20 Noreen Flores APRN SALESPERSON TERRAZZO TILES [address] [facility] [place] [address] Assigned PCP 08/05/22 03/16/23 Agatha Null DPM, Podiatry/Foot and Ankle Surgery [address] [place] [address] [place] [address] Assigned Musculoskeletal Provider 11/04/22 documented as of this encounter
--- OUTSIDE RECORDS SUMMARY | 2023-07-02 13:28 | XMS_ITS | Encounter Summary ---
Author Name Unknown Organization [place] Address [address] [place] [address] Care Team Providers Care Paper Machine Operator Name Role Phone Noreen Flores APRN FENCE INSTALLER HELPER Unavailable Noreen Flores APRN FENCE INSTALLER HELPER Primary Car e Provider Kalyan Galvan Unavailable Unavailable Lashae Trevino [facility] Unavailable Eduardo Sharma MD Unavailable Rios Monteiro MD Unavailable Marcelo Artis PA-C Unavailable Rodrigo Man PA-C Unavailable [phone] Noreen Flores APRN FENCE INSTALLER HELPER Unavailable Sudha Greene NP Primary Care Provider Agatha Null DPM, Podiatry /Foot and Ankle Surgery Unavailable Encounter Details Date Type Department Care Team (Late st Contact Info) Description 10/14/2019 [facility] [place] [address] [facility] [address] [place] [address] Lashae Trevino, [facility] [address] [facility] [place] [address] Social History Tobacco [...] Friends and Family Patient declined 08/08/2019 Attends Yazidi Services Patient declined 07/13 Active Member of [...] Answer Date Recorded PHQ-2 Score 2 07/25/2018 [facility] of Occupat ional Health - Occupational [...] have Coronavirus / COVID-19? No / Unsure 10/16/2019 4:24 PM CDT documented as of this encounter [...] Total Score: 9 08/09/19 20 7:03 AM REGULATORY PRODUCT MANAGER documented as of this encounter Care Teams Paper Machine Operator Relationship Specialty Start Date End Date Noreen Flores APRN FENCE INSTALLER HELPER [address] [place] [address] [place] [address] PCP - General Nurse Practitioner 01/09/19 12/12/21 Sudha Greene NP [address] [address] PCP - General 11/01/22 Noreen Flores APRN FENCE INSTALLER HELPER [address] [place] [address] [place] [address] Assigned PCP 06/16/18 05/26/22 Kalyan Galvan Personal Advocate & Liaison (PAL) 08/08/19 04/26/21 [facility] [address] [place] [address] Pharmacist Pharmacist 10/14/19 12/01/20 Eduardo Sharma MD [address] [place] [address] [place] [address] Assigned Sleep Provider 04/02/2005/07 [place] [address] [facility] 300 [place] [address] Assigned Musculoskeletal Provider 04/02/20 08/24/20 Marcelo Artis PA-C [address] [facility] [place] 300 [place] [address] Assigned Musculoskeletal Provider 08/25/20 08/20/21 Rodrigo Man PA-C [address] [facility] 450 [place] [address] Assigned Surgical Provider 08/25/20 11/27/20 Noreen Flores APRN FENCE INSTALLER HELPER [address] [place] [address] Assigned PCP 08/05/22 03/16/23 Agatha Null DPM, Podiatry/Foot and Ankle Surgery [address] [facility] 300 [place] [address] Assigned Musculoskeletal Provider 11/04/22 documented as of this encounter
--- OUTSIDE RECORDS SUMMARY | 2023-07-02 13:28 | XMS_ITS | Encounter Summary ---
Author Name Unknown Organization [place] Address [address] [place] [address] Care Team Providers Care Twisting Frame Fixer Name Role Phone Vanda Guerrero MD Primary Care Provider [phone] Noreen Flores APRN ARTIST REPRESENTATIVE Unavailable Noreen Flores APRN ARTIST REPRESENTATIVE Primary Car e Provider Kalyan Galvan Unavailable Unavailable Lashae Trevino [facility] Unavailable Eduardo Sharma MD Unavailable Rios Monteiro MD Unavailable Marcelo Artis PA-C Unavailable [phone] Rodrigo Man PA-C Unavailable [phone] Noreen Flores APRN ARTIST REPRESENTATIVE Unavailable Sudha Greene NP Primary Care Provider Agatha Null DPM, Podiatry /Foot and Ankle Surgery Unavailable Encounter Details Date Type Department Care Team (Late st Contact Info) Description 12/09/2018 [facility] [address] [place] [address] Christi Panda MA Social History [...] Noted Time PHQ-9 Depression Total Score: 7 06/25/19 9:49 AM PRECISION LENS GENERATOR documented as of this encounter Care Teams Twisting Frame Fixer Relationship Specialty [place] [address] [place] [address] [place] [address] PCP - General Internal Medicine 04/08/15 01/08/19 Noreen Flores APRN ARTIST REPRESENTATIVE [address] [place] [address] [place] [address] PCP - General Nurse Practitioner 01/09/19 12/12/21 Sudha Greene, MAURIC[place] [address] [address] PCP - General 11/01/22 Noreen Flores APRN ARTIST REPRESENTATIVE [address] [place] [address] [place] [address] Assigned PCP 06/16/18 05/26/22 Kalyan Galvan Personal Advocate & Liaison (PAL) 08/08/19 04/26/21 Lashae Trevino [facility] [address] [place] [address] Pharmacist Pharmacist 10/14/19 12/01/20 Eduardo Sharma MD [address] [place] [address] [place] [address] Assigned Sleep Provider 04/02/2005/07 [place] [address] [facility] [place] [address] [place] [address] Assigned Musculoskeletal Provider 04/02/20 08/24/20 Marcelo Artis PA-C [address] [facility] 300 [place] [address] Assigned Musculoskeletal Provider 08/25/20 08/20/21 Rodrigo Man PA-C [address] [place] [address] [place] [address] Assigned Surgical Provider 08/25/20 11/27/20 Noreen Flores APRN ARTIST REPRESENTATIVE 3[address] [facility] [place] [address] Assigned PCP 08/05/22 03/16/23 Agatha Null DPM, Podiatry/Foot and Ankle Surgery [address] [facility] 300 [place], [place] [address] Assigned Musculoskeletal Provider 11/04/22 documented as of this encounter
--- OUTSIDE RECORDS SUMMARY | 2023-07-02 13:28 | XMS_ITS | Encounter Summary ---
Author Name Unknown Organization [facility] Address [address] [place] [address] Care Team Providers Care Academic Vice President Name Role Phone Noreen Flores APRN, CNP Unavailable Noreen Flores APRN, CNP Primary Car e Provider Kalyan Galvan Unavailable Unavailable Lashae Trevino [facility] Unavailable [phone] Eduardo Sharma MD Unavailable Rios Monteiro MD Unavailable [phone] Marcelo Artis PA-C Unavailable Rodrigo Man PA-C Unavailable [phone] Noreen Flores APRN, CNP Unavailable Sudha Greene NP Primary Care Provider Agatha Null DPM, Podiatry /Foot and Ankle Surgery Unavailable Reason for Visit * Reason Onset Date Comments Outreach 12/09/2019 Encounter Details Date Type Department Care Team (Late st Contact Info) Description 12/09/2019 [facility] Medical Advice [facility] [place] [address] [place] [address] Noreen Flores APRN CNP [address] [facility] [place] [address] Outreach Social History Tobacco Use Types Packs/Day Years [...] Answer Date Recorded PHQ-2 Score 2 07/25/2018 [facility] [place] [facility] - Occupational [...] or suspected to have Coronavirus / COVID-19? 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 Additionally, pharmacy requested that an order be faxed for the Loratadine-d as the e-prescribe didnot transmit to them. Fax number: [phone] aKlyan Galvan, EMT at 9:53 AM on December 11, 2019 [facility] [phone] documented in this encounter Plan of Treatment Not on file documented as of this encounter Visit Diagnoses Diagnosis Chronic seasonal allergic rhinitis- Primary documented in this encounter Additional Health Concerns Infection Onset Date Last Indicated Resolved Time Rule Out COVID-19 08/25/2020 08/25/2020 08/26/2020 3:23 PM CDT Rule Out COVID-19 11/26/2022 11/26/2022 11/27/2022 3:38 PM CDT Assessment Noted Time PHQ-9 Depression Total Score: 9 08/09/19 20 7:03 AM NEAR EAST ARCHEOLOGY PROFESSOR documented as of this encounter Care Teams Academic Vice President Relationship Specialty Start Date End Date Noreen Flores APRN TECHNOLOGY INTEGRATION SPECIALIST [facility] [place] [address] PCP - General Nurse Practitioner 01/09/19 12/12/21 Sudha Greene NP [address] [address] PCP - General 11/01/22 Noreen Flores APRN TECHNOLOGY INTEGRATION SPECIALIST [address] [place] [address] [place] [address] Assigned PCP 06/16/18 05/26/22 Kalyan Galvan Personal Advocate & Liaison (PAL) 08/08/19 04/26/21 Lashae Trevino, [facility] [address] [facility] [place] [address] Pharmacist Pharmacist 10/14/19 12/01/20 Eduardo Sharma MD [address] [place], [place] [address] Assigned Sleep Provider 04/02/2005/07 [place] [address] [facility] [address] [place] [address] Assigned Musculoskeletal Provider 04/02/20 08/24/20 Marcelo Artis PA-C [address] [facility] [address] [place] [address] Assigned Musculoskeletal Provider 08/25/20 08/20/21 Rodrigo Man PA-C [address] [place] [address] Assigned Surgical Provider 08/25/20 11/27/20 Noreen Flores APRN TECHNOLOGY INTEGRATION SPECIALIST [address] [facility] [place] [address] Assigned PCP 08/05/22 03/16/23 Agatha Null, DPM, Podiatry/Foot and Ankle Surgery [address] [facility] [address] [place] [address] Assigned Musculoskeletal Provider 11/04/22 documented as of this encounter
--- OUTSIDE RECORDS SUMMARY | 2023-07-02 13:28 | XMS_ITS | Encounter Summary ---
Author Name Unknown Organization [facility] Address [address] [place] [address] Care Team Providers Care Leather Softener Name Role Phone Vanda Guerrero MD Primary Care Provider [phone] Noreen Flores APRN WAISTLINE JOINER OVERLOCK Unavailable Noreen Flores APRN, CNP Primary Car e Provider Kalyan Galvan Unavailable Unavailable Lashae Trevino [facility] Unavailable [phone] Eduardo Sharma MD Unavailable Rios Monteiro MD Unavailable Marcelo Artis PA-C Unavailable Rodrigo Man PA-C Unavailable [phone] Noreen Flores APRN WAISTLINE JOINER OVERLOCK Unavailable Sudha Greene NP Primary Care Provider [phone] Agatha Null DPM, Podiatry /Foot and Ankle Surgery Unavailable Encounter Details Date Type Department Care Team (Late st Contact Info) Description 12/05/2018 [facility] [place] [address] [facility] [place] [address] Noreen Flores APRN CNP [address] [facility] [place] [id number] Social History Tobacco Use Types Packs/Day Years [...] Depression Total Score: 7 06/25/19 9:49 AM COUNTRY SALES MANAGER documented as of this encounter Care Teams Leather Softener Relationship Specialty Start Date End Date Vanda Guerrero MD [address] [place] [address] [place] [address] PCP - General Internal Medicine 04/08/15 01/08/19 Noreen Flores APRN WAISTLINE JOINER OVERLOCK [address] [place] [address] [place] [address] PCP - General Nurse Practitioner 01/09/19 12/12/21 Sudha Greene, [place] [facility] [address] [address] PCP - General 11/01/22 Noreen Flores APRN WAISTLINE JOINER OVERLOCK [address] [place] [address] [place] [address] Assigned PCP 06/16/18 05/26/22 Kalyan Galvan Personal Advocate & Liaison (PAL) 08/08/19 04/26/21 Lashae Trevino, [facility] [address] [facility] [place] [id number] Pharmacist Pharmacist 10/14/19 12/01/20 Eduardo Sharma MD [address] [place] 3[address]45 Assigned Sleep Provider 04/02/2005/07 [place] [address] [facility] 300 [place] [address] Assigned Musculoskeletal Provider 04/02/20 08/24/20 Marcelo Artis PA-C [address] [facility] 300 [place] [address] Assigned Musculoskeletal Provider 08/25/20 08/20/21 Rodrigo Man PA-C [address] [place] [place] [address] Assigned Surgical Provider 08/25/20 11/27/20 Noreen Flores APRN WAISTLINE JOINER OVERLOCK [address] [facility] [place] [address] Assigned PCP 08/05/22 03/16/23 Agatha Null DPM, Podiatry/Foot and Ankle Surgery [address] [facility] [address] [place] [address] Assigned Musculoskeletal Provider 11/04/22 documented as of this encounter
--- OUTSIDE RECORDS SUMMARY | 2023-07-02 13:28 | XMS_ITS | Encounter Summary ---
Author Name Unknown Organization [facility] Address [address] [place] [address] Care Team Providers Care Oyster Farmer Name Role Phone Noreen Flores APRN, CNP Unavailable Noreen Flores APRN CAMP COORDINATOR Primary Car e Provider Kalyan Galvan Unavailable Unavailable Lashae Trevino [facility] Unavailable Eduardo Sharma MD Unavailable Rios Monteiro MD Unavailable Marcelo Artis PA-C Unavailable Rodrigo Man PA-C Unavailable [phone] Noreen Flores APRN, CNP Unavailable Sudha Greene NP Primary Care Provider Agatha Null DPM, Podiatry /Foot and Ankle Surgery Unavailable Encounter Details Date Type Department Care Team (Late st Contact Info) Description 01/22/2019 [facility] [address] [place] [address] Marcelo Trejo, CHUY [address] [place] [address] Social History Tobacco Use Types Packs/Day Years [...] documented as of this encounter Care Teams Oyster Farmer Relationship Specialty Start Date End Date Noreen Flores APRN CAMP COORDINATOR [facility] [place] [address] PCP - General Nurse Practitioner 01/09/19 12/12/21 Sudha Greene NP [address] [address] PCP - General 11/01/22 Noreen Flores APRN CAMP COORDINATOR [address] [place] [address] [place] [address] Assigned PCP 06/16/18 05/26/22 Kalyan Galvan Personal Advocate & Liaison (PAL) 08/08/19 04/26/21 Lashae Trevino, [facility] [address] [place] [address] Pharmacist Pharmacist 10/14/19 12/01/20 Eduardo Sharma MD [address] [place] [address] Assigned Sleep Provider 04/02/2005/07 [place] [address] [place] [address] Assigned Musculoskeletal Provider 04/02/20 08/24/20 Marcelo Artis PA-C [address] [place] [address] Assigned Musculoskeletal Provider 08/25/20 08/20/21 Rodrigo Man PA-C [address] [place] [address] Assigned Surgical Provider 08/25/20 11/27/20 Noreen Flores APRN CAMP COORDINATOR [address] [facility] [place] [address] Assigned PCP 08/05/22 03/16/23 Agatha Null DPM, Podiatry/Foot and Ankle Surgery [address] [facility] [address] [place] [address] Assigned Musculoskeletal Provider 11/04/22 documented as of this encounter
--- OUTSIDE RECORDS SUMMARY | 2023-07-02 13:28 | XMS_ITS | Encounter Summary ---
Author Name Unknown Organization [facility] Address [address] [place] [address] Care Team Providers Care Medical Genetics Director Name Role Phone Vanda Guerrero MD Primary Care Provider [phone] Vanda Guerrero MD Unavailable [phone] Jeana-Noreen Miles APRN VIDEO GAME MAKER Unavailable [facility]-Noreen Miles APRN VIDEO GAME MAKER Unavailable Jeana-JdNoreen castro APRN VIDEO GAME MAKER Primary Car e Provider Kalyan Galvan Unavailable Unavailable Lashae Trevino [facility] Unavailable Eduardo Sharma MD Unavailable Rios Monteiro MD Unavailable [phone] Marcelo Artis PA-C Unavailable Rodrigo ManC Unavailable [phone] Jeana-JdNoreen castro APRN VIDEO GAME MAKER Unavailable Sudha Greene NP Primary Care Provider Agatha Null DPM, Podiatry /Foot and Ankle Surgery Unavailable Reason for Visit * Reason Onset Date Comments Murielt Communication 02/05/2018 Encounter Details Date Type Department Care Team (Late st Contact Info) Description 02/05/2018 [facility] [address] [place] [address] [address] [place] [address] Vanda Guerrero MD [address] [place] [address] [place] [address] MyChart Communication Social History Tobacco Use Types Packs/Day Years [...] Depression Total Score: 12 018 1:02 PM TOLL SETTLEMENT CLERK documented as of this encounter Care Teams Medical Genetics Director Relationship Specialty Start Date End Date Vanda Guerrero MD [address] [place] [address] [place] [address] PCP - General Internal Medicine 04/08/15 01/08/19 Vanda Guerrero MD [address] [place] [address] [place] [address] PCP - Assigned PCP 07/24/16 06/15/18 Noreen Flores APRN VIDEO GAME MAKER [address] [place] [address] [place] [address] PCP - Assigned PCP 06/16/18 08/13/18 Noreen Flores APRN VIDEO GAME MAKER [address] [place] [address] [place] [address] PCP - General Nurse Practitioner 01/09/19 12/12/21 Sudha Greene NP [address] [address] PCP - General 11/01/22 Noreen Flores APRN VIDEO GAME MAKER [address] [facility] [place] [address] Assigned PCP 06/16/18 05/26/22 Kalyan Galvan Personal Advocate & Liaison (PAL) 08/08/19 04/26/21 Lashae Trevino, [facility] 1440 [facility] [place] [address] Pharmacist Pharmacist 10/14/19 12/01/20 Eduardo Sharma MD [address] [place] [id number] Assigned Sleep Provider 04/02/2005/07 [place] [address] [facility] [address] [place] [address] Assigned Musculoskeletal Provider 04/02/20 08/24/20 Marcelo Artis PA-C [address] [place] [address] Assigned Musculoskeletal Provider 08/25/20 08/20/21 Rodrigo Man PA-C [address] [place] [address] Assigned Surgical Provider 08/25/20 11/27/20 Noreen Flores APRN VIDEO GAME MAKER 3[address] [facility] [place] [address] Assigned PCP 08/05/22 03/16/23 Agatha Null DPM, Podiatry/Foot and Ankle Surgery [address] [address] [place] [address] Assigned Musculoskeletal Provider 11/04/22 documented as of this encounter
--- OUTSIDE RECORDS SUMMARY | 2023-07-02 13:29 | XMS_ITS | Encounter Summary ---
Author Name Unknown Organization [facility] Address [address] [place] [address] Care Team Providers Care Java Android Developer Name Role Phone Vanda Guerrero MD Primary Care Provider [phone] Vanda Guerrero MD Unavailable [phone] Jeana-Noreen Miles APRN MIDDLEWARE CONSULTANT Unavailable [facility]-Noreen Miles APRN MIDDLEWARE CONSULTANT Unavailable Jeana-JdNoreen castro APRN MIDDLEWARE CONSULTANT Primary Car e Provider Kalyan Galvan Unavailable Unavailable Lashae Trevino [facility] Unavailable [phone] Eduardo Sharma MD Unavailable Rios Monteiro MD Unavailable [phone] Marcelo Artis PA-C Unavailable Rodrigo Man PA-C Unavailable [phone] Jeana-JdNoreen castro APRN MIDDLEWARE CONSULTANT Unavailable Sudha Greene NP Primary Care Provider [phone] Agatha NullM, Podiatry /Foot and Ankle Surgery Unavailable Reason for Visit * Reason Onset Date Comments Derm Problem 01/20/2016 Encounter Details Date Type Department Care Team (Late st Contact Info) Description 01/20/2016 [facility] Medical Advice [address] [address] Vanda Guerrero MD [address] [place] [address] [place] [address] Derm Problem Social History Tobacco Use Types Packs/Day Years [...] Noted Time PHQ-9 Depression Total Score: 10 12/22/ 016 7:15 AM CDT documented as of this encounter Care Teams Java Android Developer Relationship Specialty Start Date End Date Vanda Guerrero MD [address] [place] [address] [place] [address] PCP - General Internal Medicine 04/08/15 01/08/19 Vanda Guerrero MD [address] [place] [address] [place] [address] PCP - Assigned PCP 07/24/16 06/15/18 Noreen Flores APRN MIDDLEWARE CONSULTANT [address] [place] [address] [place] [address] PCP - Assigned PCP 06/16/18 08/13/18 Noreen Flores APRN MIDDLEWARE CONSULTANT [address] [place] [address] [place] [address] PCP - General Nurse Practitioner 01/09/19 12/12/21 Sudha Greene NP [address] [address] PCP - General 11/01/22 Noreen Flores APRN MIDDLEWARE CONSULTANT [address] [place] [address] [place] [address] Assigned PCP 06/16/18 05/26/22 Kalyan Galvan Personal Advocate & Liaison (PAL) 08/08/19 04/26/21 Lashae Trevino, [facility] [place] [address] Pharmacist Pharmacist 10/14/19 12/01/20 Eduardo Sharma MD [address] [place] [address] Assigned Sleep Provider 04/02/2005/07 [place] [address] [facility] [address] [place], [place] [address] Assigned Musculoskeletal Provider 04/02/20 08/24/20 Marcelo Artis PA-C [address] [place], [place] [address] Assigned Musculoskeletal Provider 08/25/20 08/20/21 Rodrigo Man PA-C [address] [place] [address] Assigned Surgical Provider 08/25/20 11/27/20 Noreen Flores, SEAN MIDDLEWARE CONSULTANT 3305 [facility] [place] [address] Assigned PCP 08/05/22 03/16/23 Agatha Null DPM, Podiatry/Foot and Ankle Surgery [address] [address] [place] [address] Assigned Musculoskeletal Provider 11/04/22 documented as of this encounter
--- OUTSIDE RECORDS SUMMARY | 2023-07-02 13:29 | XMS_ITS | Encounter Summary ---
Author Name Unknown Organization [facility] Address [address] [place] [address] Care Team Providers Care Dry Box Operator Name Role Phone Vanda Guerrero MD Primary Care Provider [phone] Vanda Guerrero MD Unavailable [phone] Jeana-Noreen Miles APRN LIBRARY DIRECTOR Unavailable [facility]-Noreen Miles APRN LIBRARY DIRECTOR Unavailable [facility]-JdNoreen castro APRN LIBRARY DIRECTOR Primary Car e Provider Kalyan Galvan Unavailable Unavailable Lashae Trevino [facility] Unavailable Eduardo Sharma MD Unavailable Rios Monteiro MD Unavailable [phone] Marcelo Artis PA-C Unavailable [phone] Rodrigo Man PA-C Unavailable [phone] Jeana-JdNoreen castro APRN LIBRARY DIRECTOR Unavailable Sudha Greene NP Primary Care Provider Agatha Null DPM, Podiatry /Foot and Ankle Surgery Unavailable Reason for Visit * Reason Onset Date Comments Patient/info Update 07/18/2017 post C7-T1 i nterlaminar epidural steroid injection Encounter Details Date Type Department Care Team (Late st Contact Info) Description 07/18/2017 Telephone [facility] [place] [address] [facility] [address] [place] [address] Jim Wang MD [address] [place] [address] Patient/info Update (post C7-T1 interlaminar epidural steroid injection ) Social History Tobacco Use Types Packs/Day Years [...] encounter Miscellaneous Notes * Telephone Encounter - Kingalicia Todd Tobi - 07/18/2017 4:26 PM CST Patient had a C7-T1 interlaminar epidural steroid injection on 07/10/17. Called patient for an update. Pt reported the following details: She had some improvement in her pain the day of the injection into the next day but says that currently she can't tell much of a difference from before the injection. Told patient that the information will be forwarded to her provider. Also explained that, if a steroid medication was used, it could take up to 14 days to feel the full effect and if pt has any further questions or concerns pt should call the nurse line at [phone]. SCHEDULER documented in this encounter Plan of Treatment Not on file documented as of this encounter Visit Diagnoses Not on filedocumented in this encounter Additional Health Concerns Infection Onset Date Last Indicated Resolved Time Rule Out COVID-19 08/25/2020 08/25/2020 08/26/2020 3:23 PM CDT Rule Out COVID-19 11/26/2022 11/26/2022 11/27/2022 3:38 PM CDT Assessment Noted Time PHQ-9 Depression Total Score: 12 018 1:02 PM CREW SCHEDULER documented as of this encounter Care Teams Dry Box Operator Relationship Specialty Start Date End Date Vanda Guerrero MD [address] [place] [address] [place] [address] PCP - General Internal Medicine 04/08/15 01/08/19 Vanda Guerrero MD [address] [place] [address] [place] [address] PCP - Assigned PCP 07/24/16 06/15/18 Noreen Flores APRN LIBRARY DIRECTOR [address] [place] [address] [place] [address] PCP - Assigned PCP 06/16/18 08/13/18 Noreen Flores APRN LIBRARY DIRECTOR [address] [place] [address] [place] [address] PCP - General Nurse Practitioner 01/09/19 12/12/21 Sudha Greene, [place] [address] [address] PCP - General 11/01/22 Noreen Flores APRN LIBRARY DIRECTOR [address] [place] [address] [place] [address] Assigned PCP 06/16/18 05/26/22 Kalyan Galvan Personal Advocate & Liaison (PAL) 08/08/19 04/26/21 Lashae Trevino, [facility] [address] [place] [address] Pharmacist Pharmacist 10/14/19 12/01/20 Eduardo Sharma MD [address] [place] [address] [place] [address] Assigned Sleep Provider 04/02/2005/07 [place] [address] [address] Assigned Musculoskeletal Provider 04/02/20 08/24/20 Marcelo Artis PA-C [address] [address] Assigned Musculoskeletal Provider 08/25/20 08/20/21 Rodrigo Man PA-C [address] [address] Assigned Surgical Provider 08/25/20 11/27/20 Noreen Flores APRN LIBRARY DIRECTOR [address] [place] [address] Assigned PCP 08/05/22 03/16/23 Agatha Null DPM, Podiatry/Foot and Ankle Surgery [address] [facility] [address] [place] [address] Assigned Musculoskeletal Provider 11/04/22 documented as of this encounter
--- OUTSIDE RECORDS SUMMARY | 2023-07-02 13:29 | XMS_ITS | Encounter Summary ---
Author Name Unknown Organization [facility] Address [address] [place] [address] Care Team Providers Care Switch Repairer Name Role Phone Vanda Guerrero MD Primary Care Provider [phone] Vanda Guerrero MD Unavailable [phone] Jeana-Noreen Miles APRN CABINET MAKER Unavailable Jeana-Noreen Miles APRN CABINET MAKER Unavailable Jeana-JdNoreen castro APRN CABINET MAKER Primary Car e Provider Kalyan Galvan Unavailable Unavailable Lashae Trevino [facility] Unavailable Eduardo Sharma MD Unavailable Rios Monteiro MD Unavailable [phone] Marcelo Artis PA-C Unavailable Rodrigo Man PA-C Unavailable [phone] Jeana-JdNoreen acstro APRN CABINET MAKER Unavailable Sudha Greene NP Primary Care Provider [phone] Agatha Null DPM, Podiatry /Foot and Ankle Surgery Unavailable Encounter Details Date Type Department Care Team (Late st Contact Info) Description 12/05/2016 [facility] [address] [address] HeathSandy Meri, [facility] 14[address] [facility] [place] [address] Social History Tobacco Use Types Packs/Day Years [...] Resolved Time Rule Out COVID-08/25/2020 08/25/2020 08/26/2020 3:23 PM CDT Rule Out COVID-19 11/26/2022 11/26/2022 11/27/2022 3:38 PM CDT Assessment Noted Time PHQ-9 Depression Total Score: 9 10/13/19 17 7:16 AM CDT documented as of this encounter Care Teams Switch Repairer Relationship Specialty Start Date End Date Vanda Guerrero MD [address] [place] [address] [place] [address] PCP - General Internal Medicine 04/08/15 01/08/19 Vanda Guerrero MD [address] [place] [address] [place] [address] PCP - Assigned PCP 07/24/16 06/15/18 Noreen Flores APRN CABINET MAKER [address] [place] [address] [place] [address] PCP - Assigned PCP 06/16/18 08/13/18 Noreen Flores APRN CABINET MAKER [address] [place] [address] [place] [address] PCP - General Nurse Practitioner 01/09/19 12/12/21 Sudha Greene NP [address] [address] PCP - General 11/01/22 Noreen Flores APRN CABINET MAKER 3305 [facility] [place] [address] Assigned PCP 06/16/18 05/26/22 Kalyan Galvan Personal Advocate & Liaison (PAL) 08/08/19 04/26/21 Lashae Trevino [facility] [address] [place] [address] [place] [address] Pharmacist Pharmacist 10/14/19 12/01/20 Eduardo Sharma MD [address] [place] [address] Assigned Sleep Provider 04/02/2005/07 [place] [address] [place] [address] Assigned Musculoskeletal Provider 04/02/20 08/24/20 Marcelo Artis PA-C [address] [facility] [facility] [address] [address] [place] [address] Assigned Musculoskeletal Provider 08/25/20 08/20/21 Rodrigo Man PA-C [address] [place] [address] Assigned Surgical Provider 08/25/20 11/27/20 Noreen Flores APRN CABINET MAKER 3305 [facility] [place] [address] Assigned PCP 08/05/22 03/16/23 Agatha Null DPM, Podiatry/Foot and Ankle Surgery [address] [place] [address] Assigned Musculoskeletal Provider 11/04/22 documented as of this encounter
--- OUTSIDE RECORDS SUMMARY | 2023-07-02 13:29 | XMS_ITS | Encounter Summary ---
Author Name Unknown Organization [place] Address [address] [place] [address] Care Team Providers Care Extrusion Line Operator Name Role Phone Selma Good APRN SENIOR QA AUTOMATION ENGINEER Primary Care Pro vider Vanda Guerrero MD Primary Care Provider [phone] Vanda Guerrero MD Unavailable [phone] Jeana-JdNoreen castro APRN, CNP Unavailable Jeana-JdNoreen castro APRN, CNP Unavailable Jeana-JdNoreen castro APRN SENIOR QA AUTOMATION ENGINEER Primary Car e Provider Kalyan Galvan Unavailable Unavailable Lashae Trevino [facility] Unavailable [phone] Eduardo Sharma MD Unavailable Rios Monteiro MD Unavailable [phone] Marcelo Artis PA-C Unavailable [phone] Rodrigo Man PA-C Unavailable [phone] Jeana-JdNoreen castro APRN SENIOR QA AUTOMATION ENGINEER Unavailable Sudha Greene NP Primary Care Provider Agatha NullM, Podiatry /Foot and Ankle Surgery Unavailable Encounter Details Date Type Department Care Team (Late st Contact Info) Description 09/24/2014 [facility] [place] [address] [place] [phone] Shante Joya RN Social History Tobacco Use Types Packs/Day [...] COVID-19 11/26/2022 11/26/2022 11/27/2022 3:38 PM CDT documented as of this encounter Care Teams Extrusion Line Operator Relationship Specialty Start Date End Date Selma Good APRN SENIOR QA AUTOMATION ENGINEER [address] [place] [address] [place] [address] PCP - General 04/09/08 04/07/15 Vanda Guerrero MD [address] [place] [address] [place] [address] PCP - General Internal Medicine 04/08/15 01/08/19 Vanda Guerrero MD [address] [place] [address] [place] [address] PCP - Assigned PCP 07/24/16 06/15/18 Noreen Flores APRN SENIOR QA AUTOMATION ENGINEER [address] [place] [address] [place] [address] PCP - Assigned PCP 06/16/18 08/13/18 Noreen Flores APRN SENIOR QA AUTOMATION ENGINEER [address] [facility] [place] [address] PCP - General Nurse Practitioner 01/09/19 12/12/21 Sudha Greene NP [address] [address] PCP - General 11/01/22 Noreen Flores APRN SENIOR QA AUTOMATION ENGINEER [address] [place] [address] [place] [address] Assigned PCP 06/16/18 05/26/22 Kalyan Galvan Personal Advocate & Liaison (PAL) 08/08/19 04/26/21 Lashae Trevino, [facility] [address] [place] [address] [place] [phone] Pharmacist Pharmacist 10/14/19 12/01/20 Eduardo Sharma MD [address] [place] [address] [place] [address]16015 Assigned Sleep Provider 04/02/2005/07 [place] [address] [facility] [address] [place] [address] Assigned Musculoskeletal Provider 04/02/20 08/24/20 Marcelo Artis PA-C [address] [facility] [address] [place] [address] Assigned Musculoskeletal Provider 08/25/20 08/20/21 Rodrigo Man PA-C [address] [place] [address] [place] [address] Assigned Surgical Provider 08/25/20 11/27/20 Noreen Flores APRN SENIOR QA AUTOMATION ENGINEER [address] [facility] [place] [address] Assigned PCP 08/05/22 03/16/23 Agatha Null DPM, Podiatry/Foot and Ankle Surgery [address] [place] [address] Assigned Musculoskeletal Provider 11/04/22 documented as of this encounter
--- OUTSIDE RECORDS SUMMARY | 2023-07-02 13:29 | XMS_ITS | Encounter Summary ---
Author Name Unknown Organization [place] Address [address] [place] [address] Care Team Providers Care Milk Pickup Driver Name Role Phone Vanda Guerrero MD Primary Care Provider [phone] Vanda Guerrero MD Unavailable [phone] [facility]-Noreen Miles APRN CUSTOMER OPERATIONS INTERN Unavailable [facility]-JdNoreen castro APRN CUSTOMER OPERATIONS INTERN Unavailable [facility]-JdNoreen castro APRN CUSTOMER OPERATIONS INTERN Primary Car e Provider Kalyan Galvan Unavailable Unavailable Lashae Trevino [facility] Unavailable [phone] Eduardo Sharma MD Unavailable Rios Monteiro MD Unavailable [phone] Marcelo ArtisC Unavailable Rodrigo Man-C Unavailable [phone] Jeana-JdNoreen castro APRN CUSTOMER OPERATIONS INTERN Unavailable Sudah Greene NP Primary Care Provider Agatha Null DPM, Podiatry /Foot and Ankle Surgery Unavailable Reason for Referral * Diagnostic Imaging Ultrasound - Closed Specialty Diagnoses / Procedures Referred By Contpaige t Referred To Contact Radiology. Diagnoses Alkaline phosphatase elevation Procedures US Abdomen Limited Vanda Guerrero MD [address] [facility] [place] [address] Rh Ultrasound Rscc [address] [facility] [address] [place] [address] Referral ID Status Reason Start Date Expiration Date Visits Re quested Visits Authorized [id number] Closed 06/15/2017 06/15/2018 1 1 SYCHOLOGIST Reason for Visit * Reason Onset Date Comments Lab Result Notice 06/15/2017 response to 06/12/17 result note Encounter Details Date Type Department Care Team (Late st Contact Info) Description 06/15/2017 [facility] [address] [facility] [address] [place] [phone] Vanda Guerrero MD [address] [facility] [place] [address] Lab Result Notice (response to 06/12/17 resu... Social History Tobacco Use Types Packs/Day Years [...] encounter Miscellaneous Notes * Telephone Encounter - Kallie Celaya RN - 06/15/2017 4:26 PM BIOPSYCHOLOGIST Sent [employer] message. SYCHOLOGIST * Telephone Encounter - Vanda Guerrero MD - 06/15/2017 2:48 PM BIOPSYCHOLOGIST Orders placed - please let patient know. SYCHOLOGIST * Telephone Encounter - Kallie Celaya RN - 06/15/2017 2:31 PM BIOPSYCHOLOGIST Patient ok to restart Metformin & for US. T'd up. Please advise. SYCHOLOGIST documented in this encounter Plan of Treatment Not on file documented as of this encounter Results * US Abdomen Limited (06/21/2017 10:11 AM BIOPSYCHOLOGIST) Anatomical Region Laterality Modality Abdomen/Pelvis Ultrasound Impressions 06/21/2017 10:49 AM BIOPSYCHOLOGIST IMPRESSION: ??Fatty infiltration of the liver. No gallstones or bile duct dilatation. BRIDGETTE LOZA MD Narrative 06/21/2017 10:49 AM BIOPSYCHOLOGIST ULTRASOUND ABDOMEN LIMITED 06/21/2017 10:11 AM HISTORY: Increasing alkaline phosphatase. Alkaline phosphatase elevation. FINDINGS: ??Liver is increased in echogenicity without focal lesions. Area of focal fatty sparing near the gallbladder fossa. The gallbladder is normal without stones or sludge. Common bile duct is normal in diameter. Pancreas is normal where visualized. Examination of the right kidney is unremarkable. Procedure Note Bridgette Loza MD - 06/21/2017 ULTRASOUND ABDOMEN LIMITED 06/21/2017 10:11 AM HISTORY: Increasing alkaline phosphatase. Alkaline phosphatase elevation. FINDINGS: Liver is increased in echogenicity without focal lesions. Area of focal fatty sparing near the gallbladder fossa. The gallbladder is normal without stones or sludge. Common bile duct is normal in diameter. Pancreas is normal where visualized. Examination of the right kidney is unremarkable. IMPRESSION: Fatty infiltration of the liver. No gallstones or bile duct dilatation. BRIDGETTE LOZA MD Vanda Guerrero MD IMG US ORDERABLES documented in this encounter Visit Diagnoses Diagnosis Alkaline phosphatase elevation- Primary Other nonspecific abnormal serum enzyme levels Type 2 diabetes mellitus without complication, without long-term current use of insulin (H) Alkaline phosphatase elevation Other nonspecific abnormal serum enzyme levels documented in this encounter Additional Health Concerns Infection Onset Date Last Indicated Resolved Time Rule Out COVID-19 08/25/2020 08/25/2020 08/26/2020 3:23 PM CDT Rule Out COVID-19 11/26/2022 11/26/2022 11/27/2022 3:38 PM CDT Assessment Noted Time PHQ-9 Depression Total Score: 12 018 1:02 PM BIOPSYCHOLOGIST documented as of this encounter Care Teams Milk Pickup Driver Relationship Specialty Start Date End Date Vanda Guerrero MD [address] [place] [address] [place] [address] PCP - General Internal Medicine 04/08/15 01/08/19 Vanda Guerrero MD [address] [place] [address] [place] [address] PCP - Assigned PCP 07/24/16 06/15/18 Noreen Flores APRN CUSTOMER OPERATIONS INTERN [address] [place] [address] [place] [address] PCP - Assigned PCP 06/16/18 08/13/18 Noreen Flores APRN CUSTOMER OPERATIONS INTERN [address] [place] [address] [place] [address] PCP - General Nurse Practitioner 01/09/19 12/12/21 Sudha Greene, [place] [address] [address] PCP - General 11/01/22 Noreen Flores APRN CUSTOMER OPERATIONS INTERN [address] [place] [address] [place] [address] Assigned PCP 06/16/18 05/26/22 Kalyan Galvan Personal Advocate & Liaison (PAL) 08/08/19 04/26/21 Lashae Trevino, [facility] [address] [place] [address] Pharmacist Pharmacist 10/14/19 12/01/20 Eduardo Sharma MD [address] [place] [address] [place] [address] Assigned Sleep Provider 04/02/2005/07 [place] [address] [place] [address] [place] [address] Assigned Musculoskeletal Provider 04/02/20 08/24/20 Marcelo Artis PA-C [address] [place] [address] [facility] [address] Assigned Musculoskeletal Provider 08/25/20 08/20/21 Rodrigo Man PA-C [address] [place] [address] [place] [address] Assigned Surgical Provider 08/25/20 11/27/20 Noreen Flores APRN CUSTOMER OPERATIONS INTERN [address] [facility] [place] [address] Assigned PCP 08/05/22 03/16/23 Agatha Null DPM, Podiatry/Foot and Ankle Surgery [address] [place] [address] Assigned Musculoskeletal Provider 11/04/22 documented as of this encounter
--- OUTSIDE RECORDS SUMMARY | 2023-07-02 13:29 | XMS_ITS | Encounter Summary ---
Author Name Unknown Organization [place] Address [address] [place] [address] Care Team Providers Care Electric Clock Mechanic Name Role Phone Selma Good APRN FIELD RESEARCH ASSOCIATE Primary Care Pro vider Vanda Guerrero MD Primary Care Provider [phone] Vanda Guerrero MD Unavailable [phone] Jeana-JdNoreen castro APRN, CNP Unavailable Jeana-JdNoreen castro APRN, CNP Unavailable Jeana-JdNoreen castro APRN FIELD RESEARCH ASSOCIATE Primary Car e Provider Kalyan Galvan Unavailable Unavailable Lashae Trevino [facility] Unavailable [phone] Eduardo Sharma MD Unavailable Rios Monteiro MD Unavailable [phone] Marcelo Artis PA-C Unavailable [phone] Rodrigo ManC Unavailable [phone] Jeana-JdNoreen castro APRN, CNP Unavailable Sudha Greene NP Primary Care Provider Agatha NullM, Podiatry /Foot and Ankle Surgery Unavailable Reason for Visit * Reason Onset Date Comments Medication Question 10/06/2014 lisinopril Refill Request 10/06/2014 OT lancnancy and s trips Encounter Details Date Type Department Care Team (Late st Contact Info) Description 10/06/2014 [facility] Medical Advice [facility] [address] [facility] [place] [phone] Selma Good, SEAN FIELD RESEARCH ASSOCIATE [address] [facility] [place] [address] Medication Question (lisinopril); Refill R... Social History Tobacco Use Types Packs/Day Years [...] Miscellaneous Notes * Telephone Encounter - Kallie Mishra RN - 10/08/2014 9:03 AM CDT Selma- pt has been off of Lisinopril 5 mg qd for 4 months. Was it discussed that pt should stay off or should she restart this to protect her kidney's? BP Readings from Last 3 Encounters: 10/06/14 97/67 06/09/14 90/66 04/29/14 86/54 * Telephone Encounter - Abigail Burciaga - 10/06/2014 3:07 PM CDT Appointment today with Kenyon GUEVARA, MEN'S BASKETBALL COACH: 5. Hypertension goal BP (blood pressure) < 130/80 Well controlled - lisinopril (PRINIVIL,ZESTRIL) 5 MG tablet; Take 1 tablet (5 mg) by mouth daily Dispense: 90 tablet; Refill: 1 documented in this encounter Plan of Treatment Not on file documented as of this encounter Visit Diagnoses Diagnosis Type 2 diabetes, HbA1c goal < 7% (H)- Primary Type II or unspecified type diabetes mellitus without mention of complication, not stated as uncontrolled documented in this encounter Additional Health Concerns Infection Onset Date Last Indicated Resolved Time Rule Out COVID-19 08/25/2020 08/25/2020 08/26/2020 3:23 PM CDT Rule Out COVID-19 11/26/2022 11/26/2022 11/27/2022 3:38 PM CDT documented as of this encounter Care Teams Electric Clock Mechanic Relationship Specialty Start Date End Date Selma Good APRN FIELD RESEARCH ASSOCIATE [address] [place] [address] [place] [address] PCP - General 04/09/08 04/07/15 Vanda Guerrero MD [address] [place] [address] [place] [address] PCP - General Internal Medicine 04/08/15 01/08/19 Vanda Guerrero MD [address] [place] [address] [place] [address] PCP - Assigned PCP 07/24/16 06/15/18 Noreen Flores APRN FIELD RESEARCH ASSOCIATE [address] [place] [address] [place] [address] PCP - Assigned PCP 06/16/18 08/13/18 Noreen Flores APRN FIELD RESEARCH ASSOCIATE [address] [place] [address] [place] [address] PCP - General Nurse Practitioner 01/09/19 12/12/21 Sudha Greene NP [address] [address] PCP - General 11/01/22 Noreen Flores APRN FIELD RESEARCH ASSOCIATE [address] [facility] [place] [address] Assigned PCP 06/16/18 05/26/22 Kalyan Galvan Personal Advocate & Liaison (PAL) 08/08/19 04/26/21 Lashae Trevino, [facility] [place] [phone] Pharmacist Pharmacist 10/14/19 12/01/20 Eduardo Sharma MD [address] [place] [address] [place], [place] [address] Assigned Sleep Provider 04/02/2005/07 [place] [address] [place] [address] [place], [place] [address] Assigned Musculoskeletal Provider 04/02/20 08/24/20 Marcelo Artis PA-C [address] [place] [address] [place] [address] Assigned Musculoskeletal Provider 08/25/20 08/20/21 Rodrigo Man PA-C [address] [place] [address] [place] [address] Assigned Surgical Provider 08/25/20 11/27/20 Noreen Flores APRN FIELD RESEARCH ASSOCIATE [facility] [place] [address] Assigned PCP 08/05/22 03/16/23 Agatha Null, DPNita, Podiatry/Foot and Ankle Surgery [address] [place] [address] [place] [address] Assigned Musculoskeletal Provider 11/04/22 documented as of this encounter
--- OUTSIDE RECORDS SUMMARY | 2023-07-02 13:29 | XMS_ITS | Encounter Summary ---
Author Name Unknown Organization [place] Address [address] [place] [address] Care Team Providers Care Student Counselor Name Role Phone Vanda Guerrero MD Primary Care Provider [phone] Vanda Guerrero MD Unavailable [phone] [facility]-Noreen Miles APRN DIAL POLISHER Unavailable [facility]-Noreen Miles APRN DIAL POLISHER Unavailable [facility]-JdNoreen castro APRN DIAL POLISHER Primary Car e Provider Kalyan Galvan Unavailable Unavailable Lashae Trevino [facility] Unavailable Eduardo Sharma MD Unavailable Rios Monteiro MD Unavailable [phone] Marcelo Artis PA-C Unavailable Rodrigo Man PA-C Unavailable [phone] Jeana-JdNoreen castro APRN DIAL POLISHER Unavailable Sudha Greene NP Primary Care Provider Agatha Null DPM, Podiatry /Foot and Ankle Surgery Unavailable Reason for Visit * Reason Onset Date Comments Appointment 11/30/2016 reminder Encounter Details Date Type Department Care Team (Late st Contact Info) Description 11/30/2016 [facility] [address] [place] [phone] Kallie Celaya, RN Appointment (reminder) Social History Tobacco Use Types Packs/Day Years [...] as of this encounter Care Teams Student Counselor Relationship Specialty Start Date End Date Vanda Guerrero MD [address] [place] [address] [place] [address] PCP - General Internal Medicine 04/08/15 01/08/19 Vanda Guerrero MD [address] [place] [address] [place] [address] PCP - Assigned PCP 07/24/16 06/15/18 Noreen Flores APRN DIAL POLISHER [address] [place] [address] [place] [address] PCP - Assigned PCP 06/16/18 08/13/18 Noreen Flores APRN DIAL POLISHER [address] [place] [address] [place] [address] PCP - General Nurse Practitioner 01/09/19 12/12/21 Sudha Greene NP [address] [address] PCP - General 11/01/22 Noreen Flores APRN DIAL POLISHER [address] [facility] [place] [address] Assigned PCP 06/16/18 05/26/22 Kalyan Galvan Personal Advocate & Liaison (PAL) 08/08/19 04/26/21 Lashae Trevino [facility] [address] [place] [place] [address] Pharmacist Pharmacist 10/14/19 12/01/20 Eduardo Sharma MD [address] [place] [address] Assigned Sleep Provider 04/02/2005/07 [place] [address] [facility] [address] [place] [address] Assigned Musculoskeletal Provider 04/02/20 08/24/20 Marcelo Artis PA-C [address] [facility] [address] [place] [address] Assigned Musculoskeletal Provider 08/25/20 08/20/21 Rodrigo Man PA-C [address] [place] [address] Assigned Surgical Provider 08/25/20 11/27/20 Noreen Flores APRN DIAL POLISHER [address] [facility] [place] [address] Assigned PCP 08/05/22 03/16/23 Agatha Null DPM, Podiatry/Foot and Ankle Surgery [address] [place] [address] Assigned Musculoskeletal Provider 11/04/22 documented as of this encounter
--- OUTSIDE RECORDS SUMMARY | 2023-07-02 13:29 | XMS_ITS | Encounter Summary ---
Author Name Unknown Organization [place] Address [address] [place] [address] Care Team Providers Care Hospital Aide Name Role Phone Vanda Guerrero MD Primary Care Provider [phone] Vanda Guerrero MD Unavailable [phone] [facility]-Noreen Miles APRN INSURANCE CASE MANAGER Unavailable [facility] APRN INSURANCE CASE MANAGER [facility]available [facility]en cast[facility] APRN INSURANCE CASE MANAGER Primary Car e Provider Kalyan Galvan Unavailable Unavailable Lashae Trevino [facility] Unavailable [phone] Eduardo Sharma MD Unavailable Rios Monteiro MD Unavailable [phone] Marcelo Artis PA-C Unavailable [phone] Rodrigo Man PA-C Unavailable [phone] Jeana-JdNoreen castro APRN INSURANCE CASE MANAGER Unavailable Sudha Greene NP Primary Care Provider Agatha Null DPM, Podiatry /Foot and Ankle Surgery Unavailable Reason for Visit * Reason Onset Date Comments Refill Request 08/30/2016 Metformin 500mg tab Encounter Details Date Type Department Care Team (Late st Contact Info) Description 08/30/2016 Refill [facility] [address] [place] [address] [address] [place] [phone] Vanda Guerrero MD [address] [facility] [place] [address] Refill Request (Metformin 500mg tab) Social History Tobacco Use Types Packs/Day Years [...] * Telephone Encounter - Adali Pierson - 08/31/2016 4:17 PM CDT Called spoke to pt informed of rx, scheduled 09/25/[address] Guerrero. Thanks Chema Allan Team Coodinator * Telephone Encounter - Vanda Guerrero MD - 08/31/2016 3:26 PM CDT Script sent - patient due for diabetes visit - please help her schedule * Telephone Encounter - Luz Marina Waters - 08/30/2016 10:51 AM CDT Metformin 500mg tab Last Written Prescription Date: 03/08/16 Last Fill Quantity: 180, # refills: 1 Last Office Visit with [facility], P or [facility] prescribing provider: 06/01/16 BP Readings from [...] Diagnoses Diagnosis Type 2 diabetes mellitus without complication, without long-term current use of insulin (H)- Primary documented in this encounter Additional Health Concerns Infection Onset Date Last Indicated Resolved Time Rule Out COVID-19 08/25/2020 08/25/2020 08/26/2020 3:23 PM CDT Rule Out COVID-19 11/26/2022 11/26/2022 11/27/2022 3:38 PM CDT Assessment Noted Time PHQ-9 Depression Total Score: 11 016 7:09 AM 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 SCALER HELPER documented as of this encounter Care Teams Hospital Aide Relationship Specialty Start Date End Date Vanda Guerrero MD [facility] [facility] [address] [place], [place] [address] PCP - General Internal Medicine 04/08/15 01/08/19 Vanda Guerrero MD [address] [place] [address] [place] [id number] PCP - Assigned PCP 07/24/16 06/15/18 Noreen Flores APRN INSURANCE CASE MANAGER [address] [place] [address] [place] [address] PCP - Assigned PCP 06/16/18 08/13/18 Noreen Flores APRN INSURANCE CASE MANAGER [address] [place] [address] [place] [address] PCP - General Nurse Practitioner 01/09/19 12/12/21 Sudha Greene NP [address] [address] PCP - General 11/01/22 Noreen Flores APRN INSURANCE CASE MANAGER [address] [place] [address] [place] [address] Assigned PCP 06/16/18 05/26/22 Kalyan Galvan Personal Advocate & Liaison (PAL) 08/08/19 04/26/21 Lashae Trevino, [facility] [address] [place] [address] Pharmacist Pharmacist 10/14/19 12/01/20 Eduardo Sharma MD [address] [place] [address] [place] [address] Assigned Sleep Provider 04/02/2005/07 [place] [address] [facility] [address] [place] [address] Assigned Musculoskeletal Provider 04/02/20 08/24/20 Marcelo Artis PA-C [address] [facility] [address] [place] [address] Assigned Musculoskeletal Provider 08/25/20 08/20/21 Rodrigo Man PA-C [address] [facility] [address] [place], [place] [address] Assigned Surgical Provider 08/25/20 11/27/20 Noreen Flores APRN INSURANCE CASE MANAGER [address] [facility] [address] Assigned PCP 08/05/22 03/16/23 Agatha Null DPM, Podiatry/Foot and Ankle Surgery [address] [facility] [address] [place] [address] Assigned Musculoskeletal Provider 11/04/22 documented as of this encounter
--- OUTSIDE RECORDS SUMMARY | 2023-07-02 13:29 | XMS_ITS | Encounter Summary ---
Author Name Unknown Organization [place] Address [address] [place] [address] Care Team Providers Care Fac Engineer Name Role Phone Vanda Guerrero MD Primary Care Provider [phone] Vanda Guerrero MD Unavailable [phone] Jeana-Noreen Miles APRN PARACHUTE ACCESSORIES ATTACHER Unavailable [facility]-Noreen Miles APRN PARACHUTE ACCESSORIES ATTACHER Unavailable [facility]-JdNoreen castro APRN PARACHUTE ACCESSORIES ATTACHER Primary Car e Provider Kalyan Galvan Unavailable Unavailable Lashae Trevino [facility] Unavailable Eduardo Sharma MD Unavailable Rios Monteiro MD Unavailable Marcelo Artis PA-C Unavailable Rodrigo Man PA-C Unavailable [phone] Jeana-JdNoreen castro APRN PARACHUTE ACCESSORIES ATTACHER Unavailable Sudha Greene NP Primary Care Provider Agatha Null DPM, Podiatry /Foot and Ankle Surgery Unavailable Reason for Visit * Reason Comments Medication Refill simvastatin (ZOCOR) 20 MG tablet Encounter Details Date Type Department Care Team (Late st Contact Info) Description 02/15/2017 Refill [facility] [address] [place] [address] [address] [place] [address] Vanda Guerrero MD [address] [facility] [place] [address] Medication Refill (simvastatin (ZOCOR) 20 MG tablet) Social History Tobacco [...] * Telephone Encounter - Adali Pierson - 02/16/2017 12:38 PM CDT Called spoke to pt, scheduled for 02/17/17 lab only. Thanks Chema Allan Team Coodinator * Telephone Encounter - Mimi Roberts RN - 02/15/2017 1:46 PM CDT Medication is being filled for 1 time refill only due to: Patient needs labs Fasting cholesterol overdue, future order placed. Call to schedule lab only appt. Kassie Roberts RN * Telephone Encounter - Marisa Matthew - 02/15/2017 11:05 AM CDT simvastatin (ZOCOR) 20 MG tablet Last Written Prescription Date: 02/11/2016 Last Fill Quantity: 90, # refills: 3 Last Office Visit with [facility], P or [facility] prescribing provider: 09/25/2016 Lab Results Component Value Date CHOL 152 12/03/2015 Lab Results Component Value Date HDL 51 12/03/2015 Lab Results Component Value Date LDL 79 12/03/2015 Lab Results Component Value Date TRIG 109 12/03/2015 Lab Results Component Value Date CHOLHDLRATIO 2.5 08/10/2014 documented in this encounter Plan of Treatment Not on file documented as of this encounter Results * (ABNORMAL) Lipid panel reflex to direct LDL (02/17/2017 9:13 AM CDT) Cholesterol 178 <200 mg/dL 02/17/2017 2:14 PM CDT [facility] Triglycerides 121 <150 mg/dL 02/17/2017 2:14 PM CDT [facility] Comment:Fasting specimen HDL Cholesterol 43(L) >49 mg/dL 7 2:14 PM CDT [facility] LDL Cholesterol Calculated 111(H) <100 mg/dL 02/17/2017 2:14 PM CDT [facility] Comment: Above desirable: ??100-129 mg/dl Borderline High: ??130-159 mg/dL High: ? 160-189 mg/dL Very high: ? >189 mg/dl Non HDL Cholesterol 135(H) <130 mg/dL 02/17/2017 2:14 PM CDT [facility] Comment: Above Desirable: ??130-159 mg/dl Borderline high: ??160-189 mg/dl High: ? 190-219 mg/dl Very high: ? >219 mg/dl Blood specimen (specimen) 02/17/2017 9:13 AM CDT 02/17/2017 9:18 AM CDT Vanda Guerrero MD LAB - BLOOD ORDER ILDEFONSO [facility] [address] [place] [address] documented in this encounter Visit Diagnoses Diagnosis [...] documented as of this encounter Care Teams Fac Engineer Relationship Specialty Start Date End Date Vanda Guerrero MD [address] [place] [address] [place] [address] PCP - General Internal Medicine 04/08/15 01/08/19 Vanda Guerrero MD [address] [place] [address] [place] [address] PCP - Assigned PCP 07/24/16 06/15/18 Noreen Flores APRN PARACHUTE ACCESSORIES ATTACHER [address] [place] [address] [place] [address] PCP - Assigned PCP 06/16/18 08/13/18 Noreen Flores APRN PARACHUTE ACCESSORIES ATTACHER [address] [place] [address] [place] [address] PCP - General Nurse Practitioner 01/09/19 12/12/21 Sudha Greene NP [address] [address] PCP - General 11/01/22 Noreen Flores APRN PARACHUTE ACCESSORIES ATTACHER [address] [place] [address] [place] [address] Assigned PCP 06/16/18 05/26/22 Kalyan Galvan Personal Advocate & Liaison (PAL) 08/08/19 04/26/21 Lashae Trevino, [facility] [address] [place] [address] Pharmacist Pharmacist 10/14/19 12/01/20 Eduardo Sharma MD [address] [place] [address] Assigned Sleep Provider 04/02/2005/07 [place] [address] [facility] [address] [place] [address] Assigned Musculoskeletal Provider 04/02/20 08/24/20 Marcelo Artis PA-C [address] [facility] [address] [place] [address] Assigned Musculoskeletal Provider 08/25/20 08/20/21 Rodrigo Man PA-C [address] [place] [address] Assigned Surgical Provider 08/25/20 11/27/20 Noreen Flores APRN PARACHUTE ACCESSORIES ATTACHER [address] [facility] [place] [address] Assigned PCP 08/05/22 03/16/23 Agatha Null DPM, Podiatry/Foot and Ankle Surgery [address] [facility] [place] [address] [place], [place] [address] Assigned Musculoskeletal Provider 11/04/22 documented as of this encounter
--- OUTSIDE RECORDS SUMMARY | 2023-07-02 13:29 | XMS_ITS | Encounter Summary ---
Author Name Unknown Organization [place] Address [address] [place] [address] Care Team Providers Care Government Instructor Name Role Phone Vanda Guerrero MD Primary Care Provider [phone] Vanda Guerrero MD Unavailable [phone] Jeana-Noreen Miles APRN INSPECTOR CASING Unavailable [facility]-Noreen Miles APRN INSPECTOR CASING Unavailable [facility]-JdNoreen castro APRN INSPECTOR CASING Primary Car e Provider Kalyan Galvan Unavailable Unavailable Lashae Trevino [facility] Unavailable Eduardo Sharma MD Unavailable Rios Monteiro MD Unavailable [phone] Marcelo Artis PA-C Unavailable Rodrigo ManC Unavailable [phone] Jeana-JdNoreen castro APRN INSPECTOR CASING Unavailable Sudha Greene NP Primary Care Provider Agatha Null DPM, Podiatry /Foot and Ankle Surgery Unavailable Reason for Visit * Reason Onset Date Comments Musculoskeletal Problem 06/13/2016 Travel a dvice Encounter Details Date Type Department Care Team (Latest Contact Info) Description 06/13/2016 [facility] [address] [place] [address] Agatha Null DPM, Podiatry/Foot and Ankle Surgery [address] [place] [address] Musculoskeletal Problem (Travel advice) Social History Tobacco Use Types Packs/Day Years [...] encounter Miscellaneous Notes * Telephone Encounter - Graciela Barone RN - 06/13/2016 3:50 PM CST Forwarded to provider for review. Iain Barone RN RK MACHINE OPERATOR documented in this encounter Plan of Treatment Not on file documented as of this encounter Visit Diagnoses Not on filedocumented in this encounter Additional Health Concerns Infection Onset Date Last Indicated Resolved Time Rule Out COVID-19 08/25/2020 08/25/2020 08/26/2020 3:23 PM CDT Rule Out COVID-19 11/26/2022 11/26/2022 11/27/2022 3:38 PM CDT Assessment Noted Time PHQ-9 Depression Total Score: 11 05/02/ 016 7:09 AM REWORK MACHINE OPERATOR documented as of this encounter Care Teams Government Instructor Relationship Specialty Start Date End Date Vanda Guerrero MD [address] [facility] [place] [address] PCP - General Internal Medicine 04/08/15 01/08/19 Vanda Guerrero MD [address] [facility] [place] [address] PCP - Assigned PCP 07/24/16 06/15/18 Noreen Flores APRN INSPECTOR CASING [address] [place] [address] [place] [address] PCP - Assigned PCP 06/16/18 08/13/18 Noreen Flores APRN INSPECTOR CASING [address] [place] [address] [place] [address] PCP - General Nurse Practitioner 01/09/19 12/12/21 Sudha Greene NP [address] [address] PCP - General 11/01/22 Noreen Flores APRN INSPECTOR CASING [address] [place] [address] [place] [address] Assigned PCP 06/16/18 05/26/22 Kalyan Galvan Personal Advocate & Liaison (PAL) 08/08/19 04/26/21 [facility] [address] [place] [address] [place] [address] Pharmacist Pharmacist 10/14/19 12/01/20 Eduardo Sharma MD [address] [address] Assigned Sleep Provider 04/02/2005/07 Rios Monteiro MD [address] [place] [address] Assigned Musculoskeletal Provider 04/02/20 08/24/20 Marcelo Artis, PA-C [address] [place] [address] 300 [place], [place] 8[address]37 Assigned Musculoskeletal Provider 08/25/20 08/20/21 Rodrigo Man PA-C [address] [facility] [address] [place] [address] Assigned Surgical Provider 08/25/20 11/27/20 Noreen Flores APRN INSPECTOR CASING [address] [facility] [place] [address] Assigned PCP 08/05/22 03/16/23 Agatha Null, DPNita, Podiatry/Foot and Ankle Surgery [address] [facility] [address] [place] [address] Assigned Musculoskeletal Provider 11/04/22 documented as of this encounter
--- OUTSIDE RECORDS SUMMARY | 2023-07-02 13:29 | XMS_ITS | Encounter Summary ---
Author Name Unknown Organization [place] Address [address] [place] [address] Care Team Providers Care Torsion Spring Coiling Machine Setter Name Role Phone Vanda Guerrero MD Primary Care Provider [phone] Vanda Guerrero MD Unavailable [phone] Jeana-Noreen Miles APRN HOSPITALITY SERVICES MANAGER Unavailable [facility]-Noreen Miles APRN HOSPITALITY SERVICES MANAGER Unavailable [facility]-JdNoreen castro APRN HOSPITALITY SERVICES MANAGER Primary Car e Provider Kalyan Gavlan Unavailable Unavailable Lashae Trevino [facility] Unavailable [phone] Eduardo Sharma MD Unavailable Rios Monteiro MD Unavailable [phone] Marcelo Artis PA-C Unavailable [phone] Rodrigo Man PA-C Unavailable [phone] Jeana-JdNoreen castro APRN HOSPITALITY SERVICES MANAGER Unavailable Sudha Greene NP Primary Care Provider Agatha Null DPM, Podiatry /Foot and Ankle Surgery Unavailable Reason for Visit * Reason Onset Date Comments Patient/info Update 05/01/2016 foot prob Encounter Details Date Type Department Care Team (Late st Contact Info) Description 05/01/2016 [facility] [address] [place] [address] Agatha Null DPM, Podiatry/Foot and Ankle Surgery [address] [place] [address] Patient/info Update (foot prob) Social History Tobacco Use Types Packs/Day Years [...] documented as of this encounter Care Teams Torsion Spring Coiling Machine Setter Relationship Specialty Start Date End Date Vanda Guerrero MD [address] [place] [address] [place] [address] PCP - General Internal Medicine 04/08/15 01/08/19 Vanda Guerrero MD [address] [place] [address] [place] [address] PCP - Assigned PCP 07/24/16 06/15/18 Noreen Flores APRN HOSPITALITY SERVICES MANAGER [address] [place] [address] [place] [address] PCP - Assigned PCP 06/16/18 08/13/18 Noreen Flores APRN HOSPITALITY SERVICES MANAGER [address] [place] [address] [place] [address] PCP - General Nurse Practitioner 01/09/19 12/12/21 Sudha Greene NP [address] [address] PCP - General 11/01/22 [facility], [facility] HOSPITALITY SERVICES MANAGER [address] [place] [address] [place] [address] Assigned PCP 06/16/18 05/26/22 Kalyan Galvan Personal Advocate & Liaison (PAL) 08/08/19 04/26/21 Lashae Trevino [facility] [address] [place] [address] [place] [phone] Pharmacist Pharmacist 10/14/19 12/01/20 Eduardo Sharma MD [address] [place] [address] [place] [id number] Assigned Sleep Provider 04/02/2005/07 [place] [address] [facility] [address] [place] [address] Assigned Musculoskeletal Provider 04/02/20 08/24/20 Marcelo Artis PA-C [address] [facility] [address] [place] [address] Assigned Musculoskeletal Provider 08/25/20 08/20/21 Rodrigo Man PA-C [address] [place] [address] [place] [address] Assigned Surgical Provider 08/25/20 11/27/20 Noreen Flores APRN HOSPITALITY SERVICES MANAGER [address] [facility] [place] [address] Assigned PCP 08/05/22 03/16/23 Agatha Null DPM, Podiatry/Foot and Ankle Surgery [address] [place] [address] [place] [id number] Assigned Musculoskeletal Provider 11/04/22 documented as of this encounter
--- OUTSIDE RECORDS SUMMARY | 2023-07-02 13:29 | XMS_ITS | Encounter Summary ---
Author Name Unknown Organization [place] Address [address] [place] [address] Care Team Providers Care Panelboard Tank Pumper Name Role Phone Selma Good APRN TICKET WRITER Primary Care Pro vider Vanda Guerrero MD Primary Care Provider [phone] Vanda Guerrero MD Unavailable [phone] Jeana-JdNoreen castro APRN TICKET WRITER Unavailable Jeana-JdNroeen castro APRN, CNP Unavailable Jeana-JdNoreen castro APRN TICKET WRITER Primary Car e Provider Kalyan Galvan Unavailable Unavailable Lashae Trevino [facility] Unavailable [phone] Eduardo Sharma MD Unavailable Rios Monteiro MD Unavailable [phone] Marcelo Artis PA-C Unavailable [phone] Rodrigo ManC Unavailable [phone] Jeana-JdNoreen castro APRN TICKET WRITER Unavailable Sudha Greene NP Primary Care Provider [phone] Agatha NullM, Podiatry /Foot and Ankle Surgery Unavailable Encounter Details Date Type Department Care Team (Late st Contact Info) Description 08/17/2014 [facility] [address] [place] [address] Day Greene APRN CNP Social History Tobacco Use Types Packs/Day Years [...] documented as of this encounter Care Teams Panelboard Tank Pumper Relationship Specialty Start Date End Date Selma Good APRN TICKET WRITER [address] [place] [address] [place] [address] PCP - General 04/09/08 04/07/15 Vanda Guerrero MD [address] [place] [address] [place] [address] PCP - General Internal Medicine 04/08/15 01/08/19 Vanda Guerrero MD [address] [place] [address] [place] [address] PCP - Assigned PCP 07/24/16 06/15/18 Noreen Flores APRN TICKET WRITER [address] [place] [address] [place] [address] PCP - Assigned PCP 06/16/18 08/13/18 Noreen Flores APRN TICKET WRITER [address] [place] [address] [place] [address] PCP - General Nurse Practitioner 01/09/19 12/12/21 Sudha Greene NP [address] [address] PCP - General 11/01/22 [facility] SEAN TICKET WRITER [address] [place] [address] [place] [address] Assigned PCP 06/16/18 05/26/22 Kalyan Galvan Personal Advocate & Liaison (PAL) 08/08/19 04/26/21 Lashae Trevino [facility] [address] [place] [address] [place] [phone] Pharmacist Pharmacist 10/14/19 12/01/20 Eduardo Sharma MD [address] [place] [address] [place] [id number] Assigned Sleep Provider 04/02/2005/07 [place] [address] [facility] [address] [place] [address] Assigned Musculoskeletal Provider 04/02/20 08/24/20 Marcelo Artis PA-C [address] [facility] [address] [place] [address] Assigned Musculoskeletal Provider 08/25/20 08/20/21 Rodrigo Man PA-C [address] [place] [address] [place] [address] Assigned Surgical Provider 08/25/20 11/27/20 Noreen Flores APRN TICKET WRITER [address] [facility] [place] [address] Assigned PCP 08/05/22 03/16/23 Agatha Null DPM, Podiatry/Foot and Ankle Surgery [address] [place] [address] Assigned Musculoskeletal Provider 11/04/22 documented as of this encounter
--- OUTSIDE RECORDS SUMMARY | 2023-07-02 13:29 | XMS_ITS | Encounter Summary ---
Author Name Unknown Organization [place] Address [address] [place] [address] Care Team Providers Care Hedis Analyst Name Role Phone Vanda Guerrero MD Primary Care Provider [phone] Vanda Guerrero MD Unavailable [phone] Jeana-Noreen Miles APRN RECREATIONAL DIRECTOR Unavailable [facility]-Noreen Miles APRN RECREATIONAL DIRECTOR Unavailable [facility]-JdNoreen castro APRN RECREATIONAL DIRECTOR Primary Car e Provider Kalyan Galvan Unavailable Unavailable Lashae Trevino [facility] Unavailable Eduardo Sharma MD Unavailable Rios Monteiro MD Unavailable [phone] Marcelo Artis PA-C Unavailable Rodrigo ManC Unavailable [phone] Jeana-JdNoreen castro APRN RECREATIONAL DIRECTOR Unavailable Sudha Greene NP Primary Care Provider Agatha Null DPM, Podiatry /Foot and Ankle Surgery Unavailable Reason for Visit * Reason Onset Date Comments Clarification 05/19/2016 Encounter Details Date Type Department Care Team (Late st Contact Info) Description 05/19/2016 [facility] [address] [place] [address] Agatha Null DPNita, Podiatry/Foot and Ankle Surgery [address] [place] [address] Clarification Social History Tobacco Use Types Packs/Day Years [...] Total Score: 11 05/02/ 016 7:09 AM AUDIT CONTROL CLERK documented as of this encounter Care Teams Hedis Analyst Relationship Specialty Start Date End Date Vanda Guerrero MD [address] [place] [address] [place] [address] PCP - General Internal Medicine 04/08/15 01/08/19 Vanda Guerrero MD [address] [place] [address] [place] [address] PCP - Assigned PCP 07/24/16 06/15/18 Noreen Flores APRN RECREATIONAL DIRECTOR [address] [place] [address] [place] [address] PCP - Assigned PCP 06/16/18 08/13/18 Noreen Flores APRN RECREATIONAL DIRECTOR [address] [place] [address] [place] [address] PCP - General Nurse Practitioner 01/09/19 12/12/21 Sudha Greene NP [address] [address] PCP - General 11/01/22 Noreen Flores APRN RECREATIONAL DIRECTOR [address] [place] [address] [place] [address] Assigned PCP 06/16/18 05/26/22 Kalyan Galvan Personal Advocate & Liaison (PAL) 08/08/19 04/26/21 Lashae Trevino, [facility] [address] [facility] [place] [address] Pharmacist Pharmacist 10/14/19 12/01/20 Eduardo Sharma MD [address] [place] [address] Assigned Sleep Provider 04/02/2005/07 [place] [address] [facility] [address] [place] [address] Assigned Musculoskeletal Provider 04/02/20 08/24/20 Marcelo Artis PA-C [address] [facility] [address] [place] [address] Assigned Musculoskeletal Provider 08/25/20 08/20/21 Rodrigo Man PA-C [address] [place] [address] Assigned Surgical Provider 08/25/20 11/27/20 Noreen Flores APRN RECREATIONAL DIRECTOR [address] [facility] [place] [address] Assigned PCP 08/05/22 03/16/23 Agatha Null DPM, Podiatry/Foot and Ankle Surgery [address] [place] [address] Assigned Musculoskeletal Provider 11/04/22 documented as of this encounter
--- OUTSIDE RECORDS SUMMARY | 2023-07-02 13:29 | XMS_ITS | Encounter Summary ---
Author Name Unknown Organization [facility] Address [address] [place] [address] Care Team Providers Care Packaging Technician Name Role Phone Vanda Guerrero MD Primary Care Provider [phone] Vanda Guerrero MD Unavailable [phone] Jeana-JdNoreen castro APRN DORMITORY COUNSELOR Unavailable [facility]-JdNoreen castro APRN DORMITORY COUNSELOR Unavailable [facility]-JdNoreen castro APRN DORMITORY COUNSELOR Primary Car e Provider Kalyan Galvan Unavailable Unavailable Lashae Trevino [facility] Unavailable [phone] Eduardo Sharma MD Unavailable Rios Monteiro MD Unavailable [phone] Marcelo ArtisC Unavailable [phone] Rodrigo Man-C Unavailable [phone] Jeana-JdNoreen castro APRN DORMITORY COUNSELOR Unavailable Sudha Greene NP Primary Care Provider [phone] Agatha Null DPM, Podiatry /Foot and Ankle Surgery Unavailable Reason for Referral * Consultation - Closed Specialty Diagnoses / Procedures Referred By Contac t Referred To Contact Diagnoses Cervicalgia History of lumbar fusion History of fusion of cervical spine Vanda Guerrero MD [address] [facility] [place] [address] [facility] [place] [address] [facility] [address] [place] [address] Referral ID Status Reason Start Date Expiration Date Visits Re quested Visits Authorized [id number] Closed 04/27/2015 04/26/2016 1 1 Comments [facility] is referring you to the Orthopedic Generation Mechanic Helper Services at [facility]. The Generation Mechanic Helper Medical Collections Specialist will assist you in the coordination of your Orthopedic and Musculoskeletal Care as prescribed by your physician. The Generation Mechanic Helper Medical Collections Specialist will call you within 24 hours to help schedule your appointment, or you may contact the Generation Mechanic Helper Medical Collections Specialist at: [facility] ~ [facility] ~ [facility] ~ Type of Referral : Spine: Cervical / Thoracic: Medical Director Hematology Timeframe requested: Routine Coverage of these services is subject to the terms and limitations of your health insurance plan. Please call member services at your health plan with any benefit or coverage questions. If X-rays, CT or MRI's have been performed, please contact the facility where they were done to arrange for picker box operator, prior to your scheduled appointment. Please bring this referral request to your appointment and present it to your specialist. TRIC CAR OPERATOR Reason for Visit * Reason Onset Date Comments Leg Pain 04/27/2015 Encounter Details Date Type Department Care Team (Late st Contact Info) Description 04/27/[address] [facility] [address] [facility] [place] [address] Vanda Guerrero MD [address] [facility] [place] [id number] Leg Pain Social History Tobacco Use Types Packs/Day Years [...] Telephone Encounter - Kallie Mishra RN - 04/27/2015 5:20 PM ELECTRIC CAR OPERATOR Entered referral, sent [employer] message to update the patient. TRIC CAR OPERATOR * Telephone Encounter - Vanda Guerrero MD - 04/27/2015 3:16 PM ELECTRIC CAR OPERATOR Recommend FSOC evaluation in the next 1-2 weeks. TRIC CAR OPERATOR * Telephone Encounter - Kallie Mishra RN - 04/27/2015 3:14 PM ELECTRIC CAR OPERATOR Would you recommend re-evaluation due to new symptoms? TRIC CAR OPERATOR documented in this encounter Plan of Treatment Not on file documented as of this encounter Visit Diagnoses Diagnosis Cervicalgia- Primary History of lumbar fusion History of fusion of cervical spine Arthrodesis status documented in this encounter Additional Health Concerns Infection Onset Date Last Indicated Resolved Time Rule Out COVID-19 08/25/2020 08/25/2020 08/26/2020 3:23 PM CDT Rule Out COVID-19 11/26/2022 11/26/2022 11/27/2022 3:38 PM CDT documented as of this encounter Care Teams Packaging Technician Relationship Specialty Start Date End Date Vanda Guerrero MD [address] [facility] [place] [address] PCP - General Internal Medicine 04/08/15 01/08/19 Vanda Guerrero MD [address] [facility] [place] [address] PCP - Assigned PCP 07/24/16 06/15/18 Noreen Flores APRN DORMITORY COUNSELOR [address] [place] [address] [place] [address] PCP - Assigned PCP 06/16/18 08/13/18 Noreen Flores APRN DORMITORY COUNSELOR [address] [place] [address] [place] [address] PCP - General Nurse Practitioner 01/09/19 12/12/21 Sudha Greene, MAURICIO [address] [address] PCP - General 11/01/22 Noreen Flores APRN DORMITORY COUNSELOR [address] [place] [address] [place] [address] Assigned PCP 06/16/18 05/26/22 Kalyan Galvan Personal Advocate & Liaison (PAL) 08/08/19 04/26/21 [facility] [address] [place] [address] [place] [address] Pharmacist Pharmacist 10/14/19 12/01/20 Eduardo Sharma MD [address] [address] Assigned Sleep Provider 04/02/2005/07 [place] [id number] [place] [address] 300 [place] [address] Assigned Musculoskeletal Provider 04/02/20 08/24/20 Marcelo Artis, PA-C [address] [facility] [address] [place] [address] Assigned Musculoskeletal Provider 08/25/20 08/20/21 Rodrigo Man PA-C [address] [facility] [address] [place] [address] Assigned Surgical Provider 08/25/20 11/27/20 Noreen Flores APRN DORMITORY COUNSELOR [address] [facility] [place] [address] Assigned PCP 08/05/22 03/16/23 Agatha Null DPM, Podiatry/Foot and Ankle Surgery [address] [facility] 300 [place] [address] Assigned Musculoskeletal Provider 11/04/22 documented as of this encounter
--- OUTSIDE RECORDS SUMMARY | 2023-07-02 13:29 | XMS_ITS | Encounter Summary ---
Author Name Unknown Organization [facility] Address [address] [place] [address] Care Team Providers Care Video Control Engineer Name Role Phone Vanda Guerrero MD Primary Care Provider [phone] Vanda Guerreor MD Unavailable [phone] Jeana-Noreen Miles APRN GATE SHEAR OPERATOR Unavailable Jeana-Noreen Miles APRN GATE SHEAR OPERATOR Unavailable Jeana-JdNoreen castro APRN GATE SHEAR OPERATOR Primary Car e Provider Kalyan Galvan Unavailable Unavailable Lashae Trevino [facility] Unavailable [phone] Eduardo Sharma MD Unavailable Rios Monteiro MD Unavailable Marcelo Artis PA-C Unavailable Rodrigo Man PA-C Unavailable Jeana-JdNoreen castro APRN GATE SHEAR OPERATOR Unavailable Sudha Greene NP Primary Care Provider Agatha Null DPM, Podiatry /Foot and Ankle Surgery Unavailable Encounter Details Date Type Department Care Team (Late st Contact Info) Description 02/11/2016 [address] [place] [address] Vanda Guerrero MD [address] [facility] [place] [address] Social History Tobacco Use Types Packs/Day Years [...] as of this encounter Visit Diagnoses Diagnosis Anxiety- Primary Anxiety state, unspecified documented in this encounter Additional Health Concerns Infection Onset Date Last Indicated Resolved Time Rule Out COVID-08/25/2020 08/25/2020 08/26/2020 3:23 PM CDT Rule Out COVID-19 11/26/2022 11/26/2022 11/27/2022 3:38 PM CDT Assessment Noted Time PHQ-9 Depression Total Score: 10 12/22/ 016 7:15 AM CDT documented as of this encounter Care Teams Video Control Engineer Relationship Specialty Start Date End Date Vanda Guerrero MD [address] [place] [address] [place] [address] PCP - General Internal Medicine 04/08/15 01/08/19 Vanda Guerrero MD [address] [place] [address] [place] [address] PCP - Assigned PCP 07/24/16 06/15/18 Noreen Flores APRN GATE SHEAR OPERATOR [address] [place] [address] [place] [address] PCP - Assigned PCP 06/16/18 08/13/18 Noreen Flores APRN GATE SHEAR OPERATOR [address] [place] [address] [place] [address] PCP - General Nurse Practitioner 01/09/19 12/12/21 Sudha Greene, MAURICIO [address] [address] PCP - General 11/01/22 Noreen Flores APRN GATE SHEAR OPERATOR [address] [facility] [place] [address] Assigned PCP 06/16/18 05/26/22 Kalyan Galvan Personal Advocate & Liaison (PAL) 08/08/19 04/26/21 Lashae Trevino, [facility] [address] [place] [address] [place] [address] Pharmacist Pharmacist 10/14/19 12/01/20 Eduardo Sharma MD [address] [place] [address] [place] [address] Assigned Sleep Provider 04/02/2005/07 [place] [address] [place] [address] [place] [address] Assigned Musculoskeletal Provider 04/02/20 08/24/20 Marcelo Artis PA-C [address] [place] [address] [place] [address] Assigned Musculoskeletal Provider 08/25/20 08/20/21 Rodrigo Man PA-C [address] [place] [address] [place] [address] Assigned Surgical Provider 08/25/20 11/27/20 Noreen Flores APRN GATE SHEAR OPERATOR [address] [facility] [place] [address] Assigned PCP 08/05/22 03/16/23 Agatha Null DPM, Podiatry/Foot and Ankle Surgery [address] [place] [address] Assigned Musculoskeletal Provider 11/04/22 documented as of this encounter
--- OUTSIDE RECORDS SUMMARY | 2023-07-02 13:29 | XMS_ITS | Encounter Summary ---
Author Name Unknown Organization [facility] Address [address] [place] [address] Care Team Providers Care Preschool Principal Name Role Phone Vanda Guerrero MD Primary Care Provider [phone] Vanda Guerrero MD Unavailable [phone] Jeana-Noreen Miles APRN EDGE WORKER Unavailable Jeana-Noreen Miles APRN EDGE WORKER Unavailable Jeana-JdNoreen castro APRN EDGE WORKER Primary Car e Provider Kalyan Galvan Unavailable Unavailable Lashae Trevino [facility] Unavailable Eduardo Sharma MD Unavailable Rios Monteiro MD Unavailable Marcelo Artis PA-C Unavailable Rodrigo Man PA-C Unavailable Jeana-JdNoreen castro APRN EDGE WORKER Unavailable Sudha Greene NP Primary Care Provider [phone] Agatha Null DPM, Podiatry /Foot and Ankle Surgery Unavailable Encounter Details Date Type Department Care Team (Late st Contact Info) Description 03/21/2017 [facility] [address] [place] [address] Dusty Oneil, [facility] Social History Tobacco Use Types Packs/Day Years [...] documented as of this encounter Care Teams Preschool Principal Relationship Specialty Start Date End Date Vanda Guerrero MD [address] [place] [address] [place] [address] PCP - General Internal Medicine 04/08/15 01/08/19 Vanda Guerrero MD [address] [place] [address] [place] [address] PCP - Assigned PCP 07/24/16 06/15/18 Noreen Flores APRN EDGE WORKER [address] [place] [address] [place] [address] PCP - Assigned PCP 06/16/18 08/13/18 Noreen Flores APRN EDGE WORKER [address] [place] [address] [place] [address] PCP - General Nurse Practitioner 01/09/19 12/12/21 Sudha Greene NP [address] [address] PCP - General 11/01/22 Noreen Flores APRN EDGE WORKER [address] [place] [address] [place] [address] Assigned PCP 06/16/18 05/26/22 Kalyan Galvan Personal Advocate & Liaison (PAL) 08/08/19 04/26/21 Lashae Trevino, [facility] [place] [id number] Pharmacist Pharmacist 10/14/19 12/01/20 Eduardo Sharma MD [address] [place] [address] [place] [id number] Assigned Sleep Provider 04/02/2005/07 [place] [address] [facility] [place] [address] [place], [place] [address] Assigned Musculoskeletal Provider 04/02/20 08/24/20 Marcelo Artis PA-C [address] [place] [address] [place] [address] Assigned Musculoskeletal Provider 08/25/20 08/20/21 Rodrigo Man PA-C [address] [place] [address] [place] [address] Assigned Surgical Provider 08/25/20 11/27/20 Noreen Flores APRN EDGE WORKER [address] [place] [address] [place] [address] Assigned PCP 08/05/22 03/16/23 Agatha Null DPM, Podiatry/Foot and Ankle Surgery [address] [place] [address] Assigned Musculoskeletal Provider 11/04/22 documented as of this encounter
--- OUTSIDE RECORDS SUMMARY | 2023-07-02 13:30 | XMS_ITS | Encounter Summary ---
Author Name Unknown Organization [facility] Address [address] [place] [address] Care Team Providers Care Tire Fixer Name Role Phone Selma Good APRN, CNP Primary Care Pro vider Vanda Guerrero MD Primary Care Provider [phone] Vanda Guerrero MD Unavailable [phone] Jeana-JdNoreen castro APRN, CNP Unavailable Jeana-JdNoreen castro APRN, CNP Unavailable Jeana-JdNoreen castro APRN CANVAS CUTTER Primary Car e Provider Kalyan Galvan Unavailable Unavailable Lashae Trevino [facility] Unavailable [phone] Eduardo Sharma MD Unavailable Rios Monteiro MD Unavailable [phone] Marcelo Artis PA-C Unavailable [phone] Rodrigo ManC Unavailable [phone] Jeana-JdNoreen castro APRN, CNP Unavailable Sudha Greene NP Primary Care Provider Agatha NullM, Podiatry /Foot and Ankle Surgery Unavailable Reason for Visit * Reason Onset Date Comments Medication Question 05/29/2012 wellbutrin Encounter Details Date Type Department Care Team (Late st Contact Info) Description 05/29/2012 [facility] [place] [phone] Slema Good APRN CANVAS CUTTER [address] [place] [place] [address] [place] [address] Medication Question (wellbutrin) Social History Tobacco Use Types Packs/Day Years [...] of this encounter Visit Diagnoses Diagnosis Migraine headache- Primary Migraine, unspecified, without mention of intractable migraine without mention of status migrainosus Major depressive disorder, recurrent (H24) Major depressive disorder, recurrent episode, unspecified Fibromyalgia Mylagia and myositis, unspecified documented in this encounter Additional Health Concerns Infection Onset Date Last Indicated Resolved Time Rule Out COVID-19 08/25/2020 08/25/2020 08/26/2020 3:23 PM CDT Rule Out COVID-19 11/26/2022 11/26/2022 11/27/2022 3:38 PM CDT documented as of this encounter Care Teams Tire Fixer Relationship Specialty Start Date End Date Selma Good APRN CANVAS CUTTER [address] [place] [address] [place] [address] PCP - General 04/09/08 04/07/15 Vanda Guerrero MD [address] [place] [address] [place] [address] PCP - General Internal Medicine 04/08/15 01/08/19 Vanda Guerrero MD [address] [place] [address] [place] [address] PCP - Assigned PCP 07/24/16 06/15/18 Noreen Flores APRN CANVAS CUTTER [address] [place] [address] [place] [address] PCP - Assigned PCP 06/16/18 08/13/18 Noreen Flores APRN CANVAS CUTTER [address] [place] [address] [place] [address] PCP - General Nurse Practitioner 01/09/19 12/12/21 Sudha Greene NP [address] [address] PCP - General 11/01/22 Noreen Flores APRN CANVAS CUTTER [address] [place] [address] [place] [address] Assigned PCP 06/16/18 05/26/22 Kalyan Galvan Personal Advocate & Liaison (PAL) 08/08/19 04/26/21 Lashae Trevino, [facility] 1440 [facility] [place] [address] Pharmacist Pharmacist 10/14/19 12/01/20 Eudardo Sharma MD [address] [facility] [address] [place] [address] Assigned Sleep Provider 04/02/2005/07 [place] [address] [facility] [place] [address] [place] [address] Assigned Musculoskeletal Provider 04/02/20 08/24/20 Marcelo Artis PA-C [address] [facility] 300 [place] [address] Assigned Musculoskeletal Provider 08/25/20 08/20/21 Rodrigo Man PA-C [address] [facility] [address] [place] [address] Assigned Surgical Provider 08/25/20 11/27/20 Noreen Flores APRN CANVAS CUTTER [address] [place] [address] Assigned PCP 08/05/22 03/16/23 Agatha Null DPM, Podiatry/Foot and Ankle Surgery [address] [facility] [address] [place] [address] Assigned Musculoskeletal Provider 11/04/22 documented as of this encounter
--- OUTSIDE RECORDS SUMMARY | 2023-07-02 13:30 | XMS_ITS | Encounter Summary ---
Author Name Unknown Organization [facility] Address [address] [place] [address] Care Team Providers Care Milk And Cream Grader Name Role Phone Selma Good APRN EHS SPECIALIST Primary Care Pro vider Vanda Guerrero MD Primary Care Provider [phone] Vanda Guerrero MD Unavailable [phone] Jeana-JdNoreen castro APRN, CNP Unavailable Jeana-JdNoreen castro APRN, CNP Unavailable Jeana-JdNoreen castro APRN EHS SPECIALIST Primary Car e Provider Kalyan Galvan Unavailable Unavailable Lashae Trevino [facility] Unavailable [phone] Eduardo Sharma MD Unavailable Rios Monteiro MD Unavailable [phone] Marcelo Artis PA-C Unavailable [phone] Rodrigo Man PA-C Unavailable [phone] Jeana-JdNoreen castro APRN, CNP Unavailable Sudha Greene NP Primary Care Provider Agatha NullM, Podiatry /Foot and Ankle Surgery Unavailable Reason for Visit * Reason Onset Date Comments Appointment 08/10/2010 next diabetes? Encounter Details Date Type Department Care Team (Late st Contact Info) Description 08/10/2010 [facility] [address] [place] [address] [place] [address] Selma Good APRN EHS SPECIALIST [address] [place] [address] [place] [address] Appointment (next diabetes? ) Social History Tobacco Use Types Packs/Day [...] as of this encounter Care Teams Milk And Cream Grader Relationship Specialty Start Date End Date Selma Good APRN EHS SPECIALIST [address] [place] [address] [place] [address] PCP - General 04/09/08 04/07/15 Vanda Guerrero MD [address] [place] [address] [place] [address] PCP - General Internal Medicine 04/08/15 01/08/19 Vanda Guerrero MD [address] [place] [address] [place] [address] PCP - Assigned PCP 07/24/16 06/15/18 Noreen Flores APRN EHS SPECIALIST [address] [place] [address] [place] [address] PCP - Assigned PCP 06/16/18 08/13/18 Noreen Flores APRN EHS SPECIALIST [address] [place] [address] [place] [address] PCP - General Nurse Practitioner 01/09/19 12/12/21 Sudha Greene, MAURICIO [address] [address] PCP - General 11/01/22 Noreen Flores APRN EHS SPECIALIST [address] [place] [address] [place] [address] Assigned PCP 06/16/18 05/26/22 Kalyan Galvan Personal Advocate & Liaison (PAL) 08/08/19 04/26/21 [facility] [place] [phone] Pharmacist Pharmacist 10/14/19 12/01/20 Eduardo Sharma MD [address] [facility] [address] [place] [address] Assigned Sleep Provider 04/02/2005/07 [place] [address] [place] [address] [place] [address] Assigned Musculoskeletal Provider 04/02/20 08/24/20 Marcelo Artis, PARejiC [address] [place] [address] [place] [address] Assigned Musculoskeletal Provider 08/25/20 08/20/21 Rodrigo Man PA-C [address] [place] [address] Assigned Surgical Provider 08/25/20 11/27/20 Noreen Flores APRN EHS SPECIALIST 3305 [facility] [place] [address] Assigned PCP 08/05/22 03/16/23 Agatha Null, DPM, Podiatry/Foot and Ankle Surgery [address] [place] [address] [place] [address] Assigned Musculoskeletal Provider 11/04/22 documented as of this encounter
--- OUTSIDE RECORDS SUMMARY | 2023-07-02 13:30 | XMS_ITS | Encounter Summary ---
Author Name Unknown Organization [facility] Address [address] [place] [address] Care Team Providers Care Forest Products Gatherer Name Role Phone Selma Good APRN FISH WARDEN Primary Care Pro vider Vanda Guerrero MD Primary Care Provider [phone] Vanda Guerrero MD Unavailable [phone] Jeana-JdNoreen castro APRN, CNP Unavailable Jeana-JdNoreen castro APRN, CNP Unavailable Jeana-JdNoreen castro APRN FISH WARDEN Primary Car e Provider Kalyan Galvan Unavailable Unavailable Lashae Trevino [facility] Unavailable [phone] Eduardo Sharma MD Unavailable Rios Monteiro MD Unavailable [phone] Marcelo Artis PA-C Unavailable [phone] Rodrigo Man PA-C Unavailable [phone] Jeana-JdNoreen castro APRN FISH WARDEN Unavailable Sudha Greene NP Primary Care Provider Agatha NullM, Podiatry /Foot and Ankle Surgery Unavailable Encounter Details Date Type Department Care Team (Late st Contact Info) Description 05/21/2013 [facility] Medical Advice [address] [place] [phone] Alejo Casas Social History Tobacco Use Types Packs/Day Years [...] documented as of this encounter Care Teams Forest Products Gatherer Relationship Specialty Start Date End Date Selma Good APRN FISH WARDEN [address] [place] [address] [place] [address] PCP - General 04/09/08 04/07/15 Vanda Guerrero MD [address] [place] [address] [place] [address] PCP - General Internal Medicine 04/08/15 01/08/19 Vanda Guerrero MD [address] [place] [address] [place] [address] PCP - Assigned PCP 07/24/16 06/15/18 Noreen Flores APRN FISH WARDEN [address] [place] [address] [place] [address] PCP - Assigned PCP 06/16/18 08/13/18 Noreen Flores APRN FISH WARDEN 3305 [facility] [place] [address] PCP - General Nurse Practitioner 01/09/19 12/12/21 Sudha Greene NP [address] [address] PCP - General 11/01/22 Noreen Flores, SEAN FISH WARDEN [address] [place] [address] [place] [address] Assigned PCP 06/16/18 05/26/22 Kalyan Galvan Personal Advocate & Liaison (PAL) 08/08/19 04/26/21 [facility] [address] [place] [address] [place] [address] Pharmacist Pharmacist 10/14/19 12/01/20 Eduardo Sharma MD [address] [place] [address] Assigned Sleep Provider 04/02/2005/07 [place] [address] [facility] [address] [place] [address] Assigned Musculoskeletal Provider 04/02/20 08/24/20 Marcelo Artis PA-C [address] [facility] [address] [place], [place] [address] Assigned Musculoskeletal Provider 08/25/20 08/20/21 Rodrigo Man PA-C [address] [place] [address] [place] [id number] Assigned Surgical Provider 08/25/20 11/27/20 Noreen Flores APRN FISH WARDEN 3305 [facility] [place] [address] Assigned PCP 08/05/22 03/16/23 Agatha Null DPNita, Podiatry/Foot and Ankle Surgery [address] [place] [address] Assigned Musculoskeletal Provider 11/04/22 documented as of this encounter
--- OUTSIDE RECORDS SUMMARY | 2023-07-02 13:30 | XMS_ITS | Encounter Summary ---
Author Name Unknown Organization [place] Address [address] [place] [address] Care Team Providers Care Regional Account Executive Name Role Phone Selma Good APRN DIFFERENTIAL SPECIALIST Primary Care Pro vider Vanda Guerrero MD Primary Care Provider [phone] Vanda Guerrero MD Unavailable [phone] Jeana-JdNoreen castro APRN, CNP Unavailable Jeana-JdNoreen castro APRN, CNP Unavailable Jeana-JdNoreen castro APRN DIFFERENTIAL SPECIALIST Primary Car e Provider Kalyan Galvan Unavailable Unavailable Lashae Trevino [facility] Unavailable [phone] Eduardo Sharma MD Unavailable Rios Monteiro MD Unavailable [phone] Marcelo Artis PA-C Unavailable [phone] Rodrigo Man PA-C Unavailable [phone] Jeana-JdNoreen castro APRN DIFFERENTIAL SPECIALIST Unavailable Sudha Greene NP Primary Care Provider Agatha NullM, Podiatry /Foot and Ankle Surgery Unavailable Encounter Details Date Type Department Care Team (Late st Contact Info) Description 04/24/2011 [facility] Medical Advice [address] [place] [phone] Alejo Casas Social History Tobacco Use Types [...] documented as of this encounter Care Teams Regional Account Executive Relationship Specialty Start Date End Date Selma Good APRN DIFFERENTIAL SPECIALIST [address] [place] [address] [place] [address] PCP - General 04/09/08 04/07/15 Vanda Guerrero MD [address] [place] [address] [place] [address] PCP - General Internal Medicine 04/08/15 01/08/19 Vanda Guerrero MD [address] [place] [address] [place] [address] PCP - Assigned PCP 07/24/16 06/15/18 Noreen Flores APRN DIFFERENTIAL SPECIALIST [address] [place] [address] [place] [address] PCP - Assigned PCP 06/16/18 08/13/18 Noreen Flores APRN DIFFERENTIAL SPECIALIST [address] [place] [address] [place] [address]67 PCP - General Nurse Practitioner 01/09/19 12/12/21 Sudha Greene NP [address] [address] PCP - General 11/01/22 Noreen Flores APRN DIFFERENTIAL SPECIALIST 3305 [facility] [place] [address] Assigned PCP 06/16/18 05/26/22 Kalyan Galvan Personal Advocate & Liaison (PAL) 08/08/19 04/26/21 Lashae Trevino, [facility] 1440 [facility] [place] [address] Pharmacist Pharmacist 10/14/19 12/01/20 Eduardo Sharma MD [address] [place] [place] 296365 Assigned Sleep Provider 04/02/2005/07 [place] [address] [facility] 300 [place] [address] Assigned Musculoskeletal Provider 04/02/20 08/24/20 Marcelo Artis PA-C [address] [facility] [address] 300 [place] [address] Assigned Musculoskeletal Provider 08/25/20 08/20/21 Rodrigo Man PA-C [address] [place] [address] [place] [address] Assigned Surgical Provider 08/25/20 11/27/20 Noreen Flores APRN DIFFERENTIAL SPECIALIST 3305 [facility] [place] [address] Assigned PCP 08/05/22 03/16/23 Agatha Null DPM, Podiatry/Foot and Ankle Surgery [address] [place] [address] Assigned Musculoskeletal Provider 11/04/22 documented as of this encounter
--- OUTSIDE RECORDS SUMMARY | 2023-07-02 13:30 | XMS_ITS | Encounter Summary ---
Author Name Unknown Organization [facility] Address [address] [place] [address] Care Team Providers Care Dredge Runner Name Role Phone Selma Good APRN HAND PASTER Primary Care Pro vider Vanda Guerrero MD Primary Care Provider [phone] Vanda Guerrero MD Unavailable [phone] Jeana-JdNoreen castro APRN, CNP Unavailable Jeana-JdNoreen castro APRN, CNP Unavailable Jeana-JdNoreen castro APRN HAND PASTER Primary Car e Provider Kalyan Galvan Unavailable Unavailable Lashae Trevino [facility] Unavailable [phone] Eduardo Sharma MD Unavailable Rios Monteiro MD Unavailable [phone] Marcelo Artis PA-C Unavailable [phone] Rodrigo Man PA-C Unavailable [phone] Jeana-JdNoreen castro APRN HAND PASTER Unavailable Sudha Greene NP Primary Care Provider [phone] Agatha NullM, Podiatry /Foot and Ankle Surgery Unavailable Encounter Details Date Type Department Care Team (Late st Contact Info) Description 05/28/2012 [facility] Medical Advice [address] [place] [phone] Alejo Casas Social History Tobacco Use Types [...] documented as of this encounter Care Teams Dredge Runner Relationship Specialty Start Date End Date Selma Good APRN HAND PASTER [address] [place] [address] [place] [address] PCP - General 04/09/08 04/07/15 Vanda Guerrero MD [address] [place] [address] [place] 08105 PCP - General Internal Medicine 04/08/15 01/08/19 Vanda Guerrero MD [address] [place] [address] [place] [address]336 PCP - Assigned PCP 07/24/16 06/15/18 Noreen Flores APRN HAND PASTER [address] [place] [address] [place] [address] PCP - Assigned PCP 06/16/18 08/13/18 Noreen Flores APRN HAND PASTER 3305 [facility] [place] [address] PCP - General Nurse Practitioner 01/09/19 12/12/21 Sudha Greene NP [address] [address] PCP - General 11/01/22 Noreen Flores, SEAN HAND PASTER [address] [place] [address] [place] [address] Assigned PCP 06/16/18 05/26/22 Kalyan Galvan Personal Advocate & Liaison (PAL) 08/08/19 04/26/21 [facility] [address] [place] [address] [place] [address] Pharmacist Pharmacist 10/14/19 12/01/20 Eduardo Sharma MD [address] [place] [address] [place] 191145 Assigned Sleep Provider 04/02/2005/07 [place] [address] [facility] [address] [place] [address] Assigned Musculoskeletal Provider 04/02/20 08/24/20 Marcelo Artis PA-C 211[address] [facility] [address] [place], [place] 488687 Assigned Musculoskeletal Provider 08/25/20 08/20/21 Rodrigo Man PA-C [address] [place] [address] [place] 617295 Assigned Surgical Provider 08/25/20 11/27/20 Noreen Flores APRN HAND PASTER 3305 [facility] [place] [address] Assigned PCP 08/05/22 03/16/23 Agatha Null DPNita, Podiatry/Foot and Ankle Surgery [address] [place] [address] Assigned Musculoskeletal Provider 11/04/22 documented as of this encounter
--- OUTSIDE RECORDS SUMMARY | 2023-07-02 13:30 | XMS_ITS | Encounter Summary ---
Author Name Unknown Organization [facility] Address [address] [place] [address] Care Team Providers Care Livestock Handler Name Role Phone Selma Good APRN, CNP Primary Care Pro vider Vanda Guerrero MD Primary Care Provider [phone] Vanda Guerrero MD Unavailable [phone] Jeana-JdNoreen castro APRN, CNP Unavailable Jeana-JdNoreen castro APRN, CNP Unavailable Jeana-JdNoreen castro APRN BUHR MILL OPERATOR Primary Car e Provider Kalyan Galvan Unavailable Unavailable Lashae Trevino [facility] Unavailable [phone] Eduardo Shamra MD Unavailable Rios Monteiro MD Unavailable [phone] Marcelo Artis PA-C Unavailable [phone] Rodrigo Man PA-C Unavailable [phone] Jeana-JdNoreen castro APRN, CNP Unavailable Sudha Greene NP Primary Care Provider Agatha NullM, Podiatry /Foot and Ankle Surgery Unavailable Reason for Visit * Reason Onset Date Comments Symptoms 03/07/2012 uti Encounter Details Date Type Department Care Team (Late st Contact Info) Description 03/07/2012 MyC Medical Advice [facility] [place] [address] [place] [address] [place] [phone] Selma Good APRN BUHR MILL OPERATOR [address] [place] [address] [place] [address] Symptoms (uti) Social History Tobacco Use Types Packs/Day Years [...] documented as of this encounter Care Teams Livestock Handler Relationship Specialty Start Date End Date Selma Good APRN BUHR MILL OPERATOR [address] [place] [address] [place] [address] PCP - General 04/09/08 04/07/15 Vanda Guerrero MD [address] [place] [address] [place] [address] PCP - General Internal Medicine 04/08/15 01/08/19 Vanda Guerrero MD [address] [place] [address] [place] [address]11 PCP - Assigned PCP 07/24/16 06/15/18 Noreen Flores APRN BUHR MILL OPERATOR [address] [place] [address] [place] [address]38 PCP - Assigned PCP 06/16/18 08/13/18 Noreen Flores APRN BUHR MILL OPERATOR [address] [place] [address] [place] [address] PCP - General Nurse Practitioner 01/09/19 12/12/21 Sudha Greene, MAURICIO [address] [address] PCP - General 11/01/22 Noreen Flores APRN BUHR MILL OPERATOR [address] [place] [address] [place] [address] Assigned PCP 06/16/18 05/26/22 Kalyan Galvan Personal Advocate & Liaison (PAL) 08/08/19 04/26/21 [facility] [place] [id number] Pharmacist Pharmacist 10/14/19 12/01/20 Eduardo Sharma MD [address] [facility] [address] [place] [address] Assigned Sleep Provider 04/02/2005/07 [place] [address] [address] [place] [place] [address] Assigned Musculoskeletal Provider 04/02/20 08/24/20 Marcelo Artis, PA-C [address] [place] [address] [place] [address] Assigned Musculoskeletal Provider 08/25/20 08/20/21 Rodrigo Man PA-C [address] [place] 450 [place] [address] Assigned Surgical Provider 08/25/20 11/27/20 Noreen Flores APRN BUHR MILL OPERATOR 3305 [facility] [place] [address] Assigned PCP 08/05/22 03/16/23 Agatha Null, MARÍA, Podiatry/Foot and Ankle Surgery [address] [place] [address] [place] [address] Assigned Musculoskeletal Provider 11/04/22 documented as of this encounter
--- OUTSIDE RECORDS SUMMARY | 2023-07-02 13:30 | XMS_ITS | Encounter Summary ---
Author Name Unknown Organization [facility] Address [address] [place] [address] Care Team Providers Care Economic Consultant Name Role Phone Selma Good APRN CREPING MACHINE OPERATOR HELPER Primary Care Pro vider Vanda Guerrero MD Primary Care Provider [phone] Vanda Guerrero MD Unavailable [phone] Jeana-JdNoreen castro APRN, CNP Unavailable Jeana-JdNoreen castro APRN, CNP Unavailable Jeana-JdNoreen castro APRN CREPING MACHINE OPERATOR HELPER Primary Car e Provider Kalyan Galvan Unavailable Unavailable Lashae Trevino [facility] Unavailable [phone] Eduardo Sharma MD Unavailable Rios Monteiro MD Unavailable [phone] Marcelo Artis PA-C Unavailable [phone] Rodrigo Man PA-C Unavailable [phone] Jeana-JdNoreen castro APRN CREPING MACHINE OPERATOR HELPER Unavailable Sudha Greene NP Primary Care Provider Agatha NullM, Podiatry /Foot and Ankle Surgery Unavailable Encounter Details Date Type Department Care Team (Late st Contact Info) Description 07/21/2010 [facility] [place] [phone] Selma Good APRN CREPING MACHINE OPERATOR HELPER [address] [place] [address] [place] [address] Social History Tobacco Use Types Packs/Day Years [...] as of this encounter Care Teams Economic Consultant Relationship Specialty Start Date End Date Selma Good APRN CREPING MACHINE OPERATOR HELPER [address] [place] [address] [place] [address] PCP - General 04/09/08 04/07/15 Vanda Guerrero MD [address] [place] [address] [place] [address]06 PCP - General Internal Medicine 04/08/15 01/08/19 Vanda Guerrero MD [address] [place] [address] [place] 98725 PCP - Assigned PCP 07/24/16 06/15/18 Noreen Flores APRN CREPING MACHINE OPERATOR HELPER [address] [place] [address] [place] 81726 PCP - Assigned PCP 06/16/18 08/13/18 Noreen Flores APRN CREPING MACHINE OPERATOR HELPER 3305 [facility] [place] [address] PCP - General Nurse Practitioner 01/09/19 12/12/21 Sudha Greene, MAURICIO [address] [address] PCP - General 11/01/22 Noreen Flores APRN CREPING MACHINE OPERATOR HELPER [address] [place] [address] [place] [address] Assigned PCP 06/16/18 05/26/22 Kalyan Galvan Personal Advocate & Liaison (PAL) 08/08/19 04/26/21 [facility] 1440 [facility] [place] [address] Pharmacist Pharmacist 10/14/19 12/01/20 Eduardo Sharma MD [address] [address] Assigned Sleep Provider 04/02/2005/07 [place] [address] [facility] 300 [place] [address] Assigned Musculoskeletal Provider 04/02/20 08/24/20 Marcelo Artis, PA-C [address] [facility] 300 [place] [address] Assigned Musculoskeletal Provider 08/25/20 08/20/21 Rodrigo Man PA-C [address] [place] [address] [place] [address] Assigned Surgical Provider 08/25/20 11/27/20 Noreen Flores APRN CREPING MACHINE OPERATOR HELPER 3305 [facility] [place] [address] Assigned PCP 08/05/22 03/16/23 Agatha Null, DPNita, Podiatry/Foot and Ankle Surgery [address] [place] [address] [place] [id number] Assigned Musculoskeletal Provider 11/04/22 documented as of this encounter
--- OUTSIDE RECORDS SUMMARY | 2023-07-02 13:30 | XMS_ITS | Encounter Summary ---
Author Name Unknown Organization [place] Address [address] [place] [address] Care Team Providers Care Curb And Gutter Laborer Name Role Phone Selma Good APRN, CNP Primary Care Pro vider Vanda Guerrero MD Primary Care Provider [phone] Vanda Guerrero MD Unavailable [phone] Jeana-JdNoreen castro APRN, CNP Unavailable Jeana-JdNoreen castro APRN, CNP Unavailable Jeana-JdNoreen castro APRN, CNP Primary Car e Provider Kalyan Galvan Unavailable Unavailable Lashae Trevino [facility] Unavailable [phone] Eduardo Sharma MD Unavailable Rios Monteiro MD Unavailable [phone] Marcelo Artis PA-C Unavailable [phone] Rodrigo ManC Unavailable [phone] Jeana-JdNoreen castro APRN, CNP Unavailable Sudha Greene NP Primary Care Provider Agatha NullM, Podiatry /Foot and Ankle Surgery Unavailable Reason for Visit * Reason Onset Date Comments Medication Dosage Adjustment 08/18/2013 dec rease Metformin Encounter Details Date Type Department Care Team (Late st Contact Info) Description 08/18/2013 MyC Medical Advice [facility] [place] 1440 [facility] [place] [phone] Selma Good APRN JAIL MANAGER 3305 [facility] [place] [address] Medication Dosage Adjustment (decrease Met... Social History Tobacco Use Types Packs/Day Years [...] Telephone Encounter - Kallie Mishra RN - 08/18/2013 2:08 PM CDT See [employer] message below. I updated the medication list to Metformin 500 mg qd documented in this encounter Plan of Treatment [...] documented as of this encounter Care Teams Curb And Gutter Laborer Relationship Specialty Start Date End Date Selma Good APRN JAIL MANAGER [address] [place] [address] [place] [address] PCP - General 04/09/08 04/07/15 Vanda Guerrero MD [address] [place] [address] [place] [address] PCP - General Internal Medicine 04/08/15 01/08/19 Vanda Guerrero MD [address] [place] [address] [place] [address]956 PCP - Assigned PCP 07/24/16 06/15/18 Noreen Flores APRN JAIL MANAGER [address] [place] [address] [place] [address]2867 PCP - Assigned PCP 06/16/18 08/13/18 Noreen Flores APRN JAIL MANAGER [address] [place] [address] [place] [address]34 PCP - General Nurse Practitioner 01/09/19 12/12/21 Sudha Greene, MAURICIO [address] [address] PCP - General 11/01/22 Noreen Flores APRN JAIL MANAGER [address] [place] [address] [place] [address] Assigned PCP 06/16/18 05/26/22 Kalyan Galvan Personal Advocate & Liaison (PAL) 08/08/19 04/26/21 Lashae Trevino [facility] [address] [place] [address] Pharmacist Pharmacist 10/14/19 12/01/20 Eduardo Sharma MD [address] [place] [address] [place] [id number] Assigned Sleep Provider 04/02/2005/07 [place] [address] [address] Assigned Musculoskeletal Provider 04/02/20 08/24/20 Marcelo Artis PA-C [address] [address] Assigned Musculoskeletal Provider 08/25/20 08/20/21 Rodrigo Man PA-C [address] [address] Assigned Surgical Provider 08/25/20 11/27/20 Noreen Flores APRN JAIL MANAGER [address] [facility] [place] [address] Assigned PCP 08/05/22 03/16/23 Agatha Null DPM, Podiatry/Foot and Ankle Surgery [address] [facility] 300 [place] [address] Assigned Musculoskeletal Provider 11/04/22 documented as of this encounter
--- OUTSIDE RECORDS SUMMARY | 2023-07-02 13:30 | XMS_ITS | Encounter Summary ---
Author Name Unknown Organization [facility] Address [address] [place] [address] Care Team Providers Care Trailer Rental Clerk Name Role Phone Selma Good APRN, CNP Primary Care Pro vider Vanda Guerrero MD Primary Care Provider [phone] Vanda Guerrero MD Unavailable [phone] Jeana-JdNoreen castro APRN, CNP Unavailable Jeana-JdNoreen castro APRN, CNP Unavailable Jeana-JdNoreen castro APRN, CNP Primary Car e Provider Kalyan Galvan Unavailable Unavailable Lashae Trevino [facility] Unavailable [phone] Eduardo Sharma MD Unavailable Rios Monteiro MD Unavailable [phone] Marcelo Artis PA-C Unavailable [phone] Rodrigo ManC Unavailable [phone] Jeana-JdNoreen castro APRN, CNP Unavailable Sudha Greene NP Primary Care Provider Agatha NullM, Podiatry /Foot and Ankle Surgery Unavailable Reason for Visit * Reason Onset Date Comments Foot Problems 03/19/2014 numb Encounter Details Date Type Department Care Team (Late st Contact Info) Description 03/19/2014 [facility] [address] [place] [address] [place] [phone] Selma Good APRN FOOD SERVICES MANAGER [address] [place] [address] [place] [address] Foot Problems (numb) Social History Tobacco Use Types Packs/Day Years [...] documented as of this encounter Care Teams Trailer Rental Clerk Relationship Specialty Start Date End Date Selma Good APRN FOOD SERVICES MANAGER [address] [place] [address] [place] [address] PCP - General 04/09/08 04/07/15 aVnda Guerrero MD [address] [place] [address] [place] [address] PCP - General Internal Medicine 04/08/15 01/08/19 Vanda Guerrero MD [address] [place] [address] [place] [address] PCP - Assigned PCP 07/24/16 06/15/18 Noreen Flores APRN FOOD SERVICES MANAGER [address] [place] [address] [place] [address] PCP - Assigned PCP 06/16/18 08/13/18 Noreen Flores APRN FOOD SERVICES MANAGER [address] [place] [address] [place] [address] PCP - General Nurse Practitioner 01/09/19 12/12/21 Sudha Greene, MAURICIO [address] [address] PCP - General 11/01/22 Noreen Flores APRN FOOD SERVICES MANAGER [address] [place] [address] [place] [address] Assigned PCP 06/16/18 05/26/22 Kalyan Galvan Personal Advocate & Liaison (PAL) 08/08/19 04/26/21 [facility] [address] [place] [address] [place] [id number] Pharmacist Pharmacist 10/14/19 12/01/20 Eduardo Sharma MD [address] [facility] 103 [place] [address] Assigned Sleep Provider 04/02/2005/07 [place] [address] [place] [address] [place] [address] Assigned Musculoskeletal Provider 04/02/20 08/24/20 Marcelo Artis, PA-C [address] [place] [address] [place] [address] Assigned Musculoskeletal Provider 08/25/20 08/20/21 Rodrigo Man PA-C [address] [place] [place] [address] Assigned Surgical Provider 08/25/20 11/27/20 Noreen Flores APRN FOOD SERVICES MANAGER 3305 [facility] [place] [address] Assigned PCP 08/05/22 03/16/23 Agatha Null DPM, Podiatry/Foot and Ankle Surgery [address] [place] [address] [place] [address] Assigned Musculoskeletal Provider 11/04/22 documented as of this encounter
--- OUTSIDE RECORDS SUMMARY | 2023-07-02 13:30 | XMS_ITS | Encounter Summary ---
Author Name Unknown Organization [place] Address [address] [place] [address] Care Team Providers Care Vocational Technical Education Director Name Role Phone Selma Good APRN SENIOR FUND ACCOUNTANT Primary Care Pro vider Vanda Guerrero MD Primary Care Provider [phone] Vanda Guerrero MD Unavailable [phone] Jeana-JdNoreen castro APRN, CNP Unavailable Jeana-JdNoreen castro APRN, CNP Unavailable Jeana-JdNoreen castro APRN SENIOR FUND ACCOUNTANT Primary Car e Provider Kalyan Galvan Unavailable Unavailable Lashae Trevino [facility] Unavailable [phone] Eduardo Sharma MD Unavailable Rios Monteiro MD Unavailable [phone] Marcelo Artis PA-C Unavailable [phone] Rodrigo Man PA-C Unavailable [phone] Jeana-JdNoreen castro APRN SENIOR FUND ACCOUNTANT Unavailable Sudha Greene NP Primary Care Provider Agatha NullM, Podiatry /Foot and Ankle Surgery Unavailable Encounter Details Date Type Department Care Team (Late st Contact Info) Description 07/12/2012 MyC Medical Advice [facility] [place] [address] [facility] [place] [phone] Selma Good APRN SENIOR FUND ACCOUNTANT [address] [place] [address] [place] [address] Social History Tobacco Use Types Packs/Day Years [...] documented as of this encounter Care Teams Vocational Technical Education Director Relationship Specialty Start Date End Date Selma Good APRN SENIOR FUND ACCOUNTANT [address] [place] [address] [place] [address] PCP - General 04/09/08 04/07/15 Vanda Guerrero MD [address] [place] [address] [place] [address] PCP - General Internal Medicine 04/08/15 01/08/19 Vanda Guerrero MD [address] [place] [address] [place] [address] PCP - Assigned PCP 07/24/16 06/15/18 Noreen Flores APRN SENIOR FUND ACCOUNTANT [address] [place] [address] [place] [address] PCP - Assigned PCP 06/16/18 08/13/18 Noreen Flores APRN SENIOR FUND ACCOUNTANT [address] [place] [address] [place] [address] PCP - General Nurse Practitioner 01/09/19 12/12/21 Sudha Greene NP [address] [address] PCP - General 11/01/22 Noreen Flores APRN SENIOR FUND ACCOUNTANT [address] [place] [address] [place] [address] Assigned PCP 06/16/18 05/26/22 Kalyan Galvan Personal Advocate & Liaison (PAL) 08/08/19 04/26/21 [facility] [place] [address] Pharmacist Pharmacist 10/14/19 12/01/20 Eduardo Sharma MD [address] [facility] [address] [place] [address] Assigned Sleep Provider 04/02/2005/07 [place] [address] [place] [address] [place] [address] Assigned Musculoskeletal Provider 04/02/20 08/24/20 Marcelo Artis PARejiC [address] [place] [address] [place] [address] Assigned Musculoskeletal Provider 08/25/20 08/20/21 Rodrigo Man PA-C [address] [place] [address] [place] [address] Assigned Surgical Provider 08/25/20 11/27/20 Noreen Flores APRN SENIOR FUND ACCOUNTANT 3305 [facility] [place] [address] Assigned PCP 08/05/22 03/16/23 Agatha Null, MARÍA, Podiatry/Foot and Ankle Surgery [address] [place] [address] [place] [id number] Assigned Musculoskeletal Provider 11/04/22 documented as of this encounter
--- OUTSIDE RECORDS SUMMARY | 2023-07-02 13:30 | XMS_ITS | Encounter Summary ---
Author Name Unknown Organization [place] Address [address] [place] [address] Care Team Providers Care Hardwood Flooring Specialist Name Role Phone Selma Good APRN VETERINARY TECHNOLOGIST Primary Care Pro vider Vanda Guerrero MD Primary Care Provider [phone] Vanda Guerrero MD Unavailable [phone] Jeana-JdNoreen castro APRN, CNP Unavailable Jeana-JdNoreen castro APRN, CNP Unavailable Jeana-JdNoreen castro APRN VETERINARY TECHNOLOGIST Primary Car e Provider Kalyan Galvan Unavailable Unavailable Lashae Trevino [facility] Unavailable [phone] Eduardo Sharma MD Unavailable Rios Monteiro MD Unavailable [phone] Marcelo Artis PA-C Unavailable [phone] Rodrigo Man PA-C Unavailable [phone] Jeana-JdNoreen castro APRN VETERINARY TECHNOLOGIST Unavailable Sudha Greene NP Primary Care Provider Agatha NullM, Podiatry /Foot and Ankle Surgery Unavailable Encounter Details Date Type Department Care Team (Late st Contact Info) Description 02/11/2010 [facility] [place] [address] [place] [phone] Alejo Casas Social History Tobacco Use Types [...] documented as of this encounter Care Teams Hardwood Flooring Specialist Relationship Specialty Start Date End Date Selma Good APRN VETERINARY TECHNOLOGIST [address] [place] [address] [place] [address] PCP - General 04/09/08 04/07/15 Vanda Guerrero MD [address] [place] [address] [place] [address] PCP - General Internal Medicine 04/08/15 01/08/19 Vanda Guerrero MD [address] [place] [address] [place] [address] PCP - Assigned PCP 07/24/16 06/15/18 Noreen Flores APRN VETERINARY TECHNOLOGIST [address] [place] [address] [place] [address] PCP - Assigned PCP 06/16/18 08/13/18 Noreen Flores APRN VETERINARY TECHNOLOGIST [address] [place] [address] [place] [address] PCP - General Nurse Practitioner 01/09/19 12/12/21 Sudha Greene NP [address] [address] PCP - General 11/01/22 Noreen Flores APRN VETERINARY TECHNOLOGIST 3305 [facility] [place] [address] Assigned PCP 06/16/18 05/26/22 Kalyan Galvan Personal Advocate & Liaison (PAL) 08/08/19 04/26/21 Lashae Trevino, [facility] 1440 [facility] [place] [address] Pharmacist Pharmacist 10/14/19 12/01/20 Eduardo Sharma MD [address] [place] 294655 Assigned Sleep Provider 04/02/2005/07 [place] [address] [facility] 300 [place] [address] Assigned Musculoskeletal Provider 04/02/20 08/24/20 Marcelo Artis PA-C 35518 [facility] [address] 300 [place] [address] Assigned Musculoskeletal Provider 08/25/20 08/20/21 Rodrigo Man PA-C [address] [place] [address] Assigned Surgical Provider 08/25/20 11/27/20 Noreen Flores APRN VETERINARY TECHNOLOGIST 3305 [facility] [place] [address] Assigned PCP 08/05/22 03/16/23 Agatha Null DPM, Podiatry/Foot and Ankle Surgery [address] [place] [address] Assigned Musculoskeletal Provider 11/04/22 documented as of this encounter
--- OUTSIDE RECORDS SUMMARY | 2023-07-02 13:30 | XMS_ITS | Encounter Summary ---
Author Name Unknown Organization [place] Address [address] [place] [address] Care Team Providers Care Site Inspector Name Role Phone Selma Good APRN HOSPITALITY WORKERS Primary Care Pro vider Vanda Guerrero MD Primary Care Provider [phone] Vanda Guerrero MD Unavailable [phone] Jeana-JdNoreen castro APRN, CNP Unavailable Jeana-JdNoreen castro APRN, CNP Unavailable Jeana-JdNoreen castro APRN HOSPITALITY WORKERS Primary Car e Provider Kalyan Galvan Unavailable Unavailable Lashae Trevino [facility] Unavailable [phone] Eduardo Sharma MD Unavailable Rios Monteiro MD Unavailable [phone] Marcelo Artis PA-C Unavailable [phone] Rodrigo ManC Unavailable [phone] Jeana-JdNoreen castro APRN HOSPITALITY WORKERS Unavailable Sudha Greene NP Primary Care Provider [phone] Agatha NullM, Podiatry /Foot and Ankle Surgery Unavailable Reason for Visit * Reason Onset Date Comments Vaginal Problem 05/24/2011 itchy -worse wit h cream Encounter Details Date Type Department Care Team (Late st Contact Info) Description 05/24/2011 My[facility] Medical Advice [facility] 1440 [facility] [place] [phone] Selma Good APRN HOSPITALITY WORKERS [facility]5 [facility] [place] [address] Vaginal Problem (itchy -worse with cream ) Social History Tobacco Use Types Packs/Day [...] as of this encounter Care Teams Site Inspector Relationship Specialty Start Date End Date Selma Good APRN HOSPITALITY WORKERS [address] [place] [address] [place] [address] PCP - General 04/09/08 04/07/15 Vanda Guerrero MD [address] [place] [address] [place] [address] PCP - General Internal Medicine 04/08/15 01/08/19 Vanda Guerrero MD [address] [place] [address] [place] 47979 PCP - Assigned PCP 07/24/16 06/15/18 Noreen Flores APRN HOSPITALITY WORKERS 3305 [facility] [place] [address] PCP - Assigned PCP 06/16/18 08/13/18 Noreen Flores APRN HOSPITALITY WORKERS [address] [place] [address] [place] [address] PCP - General Nurse Practitioner 01/09/19 12/12/21 Sudha Greene NP [address] [address] PCP - General 11/01/22 Noreen Flores APRN HOSPITALITY WORKERS [address] [place] [address] [place] [address] Assigned PCP 06/16/18 05/26/22 Kalyan Galvan Personal Advocate & Liaison (PAL) 08/08/19 04/26/21 Lashae Trevino, [facility] [address] [place] [address] [place] [phone] Pharmacist Pharmacist 10/14/19 12/01/20 Eduardo Sharma MD [address] [place] [address] Assigned Sleep Provider 04/02/2005/07 [place] [address] [facility] 300 [place], [place] [id number] Assigned Musculoskeletal Provider 04/02/20 08/24/20 Marcelo Artis PA-C 24692 [facility] 300 [place], [place] [id number] Assigned Musculoskeletal Provider 08/25/20 08/20/21 Rodirgo Man PA-C [address] [place] [address] Assigned Surgical Provider 08/25/20 11/27/20 Noreen Flores APRN HOSPITALITY WORKERS [address] [facility] [place] [address] Assigned PCP 08/05/22 03/16/23 Agatha Null DPM, Podiatry/Foot and Ankle Surgery [address] [place] [address] Assigned Musculoskeletal Provider 11/04/22 documented as of this encounter
--- OUTSIDE RECORDS SUMMARY | 2023-07-02 13:30 | XMS_ITS | Encounter Summary ---
Author Name Unknown Organization [place] Address [address] [place] [address] Care Team Providers Care Flow Trader Name Role Phone Selma Good APRN OPTOMETRY PROFESSOR Primary Care Pro vider Vanda Guerrero MD Primary Care Provider [phone] Vanda Guerrero MD Unavailable [phone] Jeana-JdNoreen castro APRN, CNP Unavailable Jeana-JdNoreen castro APRN, CNP Unavailable Jeana-JdNoreen castro APRN OPTOMETRY PROFESSOR Primary Car e Provider Kalyan Galvan Unavailable Unavailable Lashae Trevino [facility] Unavailable [phone] Eduardo Sharma MD Unavailable Rios Monteiro MD Unavailable [phone] Marcelo Artis PA-C Unavailable [phone] Rodrigo Man PA-C Unavailable [phone] Jeana-JdNoreen castro APRN OPTOMETRY PROFESSOR Unavailable Sudha Greene NP Primary Care Provider Agatha NullM, Podiatry /Foot and Ankle Surgery Unavailable Encounter Details Date Type Department Care Team (Late st Contact Info) Description 04/17/2010 [facility] [place] [facility] [place] [address] [place] [address] [place] [phone] Selma Good APRN OPTOMETRY PROFESSOR [address] [place] [address] [place] [address] Social History Tobacco Use Types Packs/Day Years [...] encounter Miscellaneous Notes * Telephone Encounter - Hilary Higgins - 04/18/2010 10:42 AM CST Selma could you respond to pt regarding her sodium intake. STAT ASSEMBLER documented in this encounter Plan of Treatment Not on file documented as of this encounter Visit Diagnoses Not on filedocumented in this encounter Additional Health Concerns Infection Onset Date Last Indicated Resolved Time Rule Out COVID-19 08/25/2020 08/25/2020 08/26/2020 3:23 PM CDT Rule Out COVID-19 11/26/2022 11/26/2022 11/27/2022 3:38 PM CDT documented as of this encounter Care Teams Flow Trader Relationship Specialty Start Date End Date Selma Good APRN OPTOMETRY PROFESSOR [address] [place] [address] [place] [address] PCP - General 04/09/08 04/07/15 Vanda Guerrero MD [address] [place] [address] [place] [address]6782 PCP - General Internal Medicine 04/08/15 01/08/19 Vanda Guerrero MD [address] [place] [address] [place] 39393 PCP - Assigned PCP 07/24/16 06/15/18 Noreen Flores APRN OPTOMETRY PROFESSOR [address] [place] [address] [place] [address] PCP - Assigned PCP 06/16/18 08/13/18 Noreen Flores APRN OPTOMETRY PROFESSOR [address] [place] [address] [place] [address] PCP - General Nurse Practitioner 01/09/19 12/12/21 Sudha Greene NP [address] [address] PCP - General 11/01/22 Noreen Flores APRN OPTOMETRY PROFESSOR [address] [place] [address] [place] [address] Assigned PCP 06/16/18 05/26/22 Kalyan Galvan Personal Advocate & Liaison (PAL) 08/08/19 04/26/21 Lashae Trevino, [facility] 1440 [facility] [place] [address] Pharmacist Pharmacist 10/14/19 12/01/20 Eduardo Sharma MD [address] [facility] 103 [place], [place] 9[address] Assigned Sleep Provider 04/02/2005/07 [place] [address] [facility] 300 [place] [address] Assigned Musculoskeletal Provider 04/02/20 08/24/20 Marcelo Artis PA-C 775[address] [facility] 300 [place] [address] Assigned Musculoskeletal Provider 08/25/20 08/20/21 Rodrigo Man PA-C [address] [facility] 450 [place] [address] Assigned Surgical Provider 08/25/20 11/27/20 Noreen Flores APRN OPTOMETRY PROFESSOR 3305 [facility] [place] [id number] Assigned PCP 08/05/22 03/16/23 Agatha Null DPM, Podiatry/Foot and Ankle Surgery [address] [facility] 300 [place] [address] Assigned Musculoskeletal Provider 11/04/22 documented as of this encounter
--- OUTSIDE RECORDS SUMMARY | 2023-07-02 13:30 | XMS_ITS | Encounter Summary ---
Author Name Unknown Organization [place] Address [address] [place] [address] Care Team Providers Care Shirt Cleaner Name Role Phone Selma Good APRN MOLDING MANAGER Primary Care Pro vider Vanda Guerrero MD Primary Care Provider [phone] Vanda Guerrero MD Unavailable [phone] Jeana-JdNoreen castro APRN, CNP Unavailable Jeana-JdNoreen castro APRN, CNP Unavailable Jeana-JdNoreen castro APRN MOLDING MANAGER Primary Car e Provider Kalyan Galvan Unavailable Unavailable Lashae Trevino [facility] Unavailable [phone] Eduardo Sharma MD Unavailable Rios Monteiro MD Unavailable [phone] Marcelo Artis PA-C Unavailable [phone] Rodrigo ManC Unavailable [phone] Jeana-DjNoreen castro APRN, CNP Unavailable Sudha Greene NP Primary Care Provider [phone] Agatha NullM, Podiatry /Foot and Ankle Surgery Unavailable Reason for Visit * Reason Onset Date Comments Cellulitis 09/13/2010 not completely g one Encounter Details Date Type Department Care Team (Late st Contact Info) Description 09/13/2010 [facility] 1440 [facility] [place] [phone] Selma Good APRN MOLDING MANAGER 3305 [facility] [place] [address] Cellulitis (not completely gone ) Social History Tobacco Use Types Packs/Day [...] documented as of this encounter Care Teams Shirt Cleaner Relationship Specialty Start Date End Date Selma Good APRN MOLDING MANAGER [address] [place] [address] [place] [address] PCP - General 04/09/08 04/07/15 Vanda Guerrero MD [address] [place] [address] [place] [address] PCP - General Internal Medicine 04/08/15 01/08/19 Vanda Guerrero MD [address] [place] [address] [place] [address] PCP - Assigned PCP 07/24/16 06/15/18 Noreen Flores APRN MOLDING MANAGER [address] [place] [address] [place] [address] PCP - Assigned PCP 06/16/18 08/13/18 Noreen Flores APRN MOLDING MANAGER [address] [place] [address] [place] [address]708 PCP - General Nurse Practitioner 01/09/19 12/12/21 Sudha Greene, MA[place]IC[place] [address] [address] PCP - General 11/01/22 Noreen Flores APRN MOLDING MANAGER [address] [place] [address] [place] [address] Assigned PCP 06/16/18 05/26/22 Kalyan Galvan Personal Advocate & Liaison (PAL) 08/08/19 04/26/21 [facility] [address] [place] [address] [place] [phone] Pharmacist Pharmacist 10/14/19 12/01/20 Eduardo Sharma MD [address] [facility] 103 [place] [address] Assigned Sleep Provider 04/02/2005/07 [place] [address] [place] [place] [address] Assigned Musculoskeletal Provider 04/02/20 08/24/20 Marcelo Artis, PA-C [address] [place] [place] [address] Assigned Musculoskeletal Provider 08/25/20 08/20/21 Rodrigo Man PA-C [address] 450 [place] [address] Assigned Surgical Provider 08/25/20 11/27/20 Noreen Flores APRN MOLDING MANAGER 3305 [facility] [place] [address] Assigned PCP 08/05/22 03/16/23 Agatha Null DPM, Podiatry/Foot and Ankle Surgery [address] [place] [address] Assigned Musculoskeletal Provider 11/04/22 documented as of this encounter
--- OUTSIDE RECORDS SUMMARY | 2023-07-02 13:30 | XMS_ITS | Encounter Summary ---
Author Name Unknown Organization [place] Address [address] [place] [address] Care Team Providers Care Band Edger Name Role Phone Selma Good APRN, CNP Primary Care Pro vider Vanda Guerrero MD Primary Care Provider [phone] Vanda Guerrero MD Unavailable [phone] Jeana-JdNoreen castro APRN, CNP Unavailable Jeana-JdNoreen castro APRN, CNP Unavailable Jeana-JdNoreen castro APRN MINE UTILITY OPERATOR Primary Car e Provider Kalyan Galvan Unavailable Unavailable Lashae Trevino [facility] Unavailable [phone] Eduardo Sharma MD Unavailable Rios Monteiro MD Unavailable [phone] Marcelo Artis PA-C Unavailable [phone] oRdrigo ManC Unavailable [phone] Jeana-JdNoreen castro APRN, CNP Unavailable Sudha Greene NP Primary Care Provider Agatha NullM, Podiatry /Foot and Ankle Surgery Unavailable Reason for Visit * Reason Onset Date Comments Medication Question 11/23/2011 topamax Encounter Details Date Type Department Care Team (Late st Contact Info) Description 11/23/[address] [facility] [place] [phone] Selma Good APRN MINE UTILITY OPERATOR [address] [place] [address] [place] [address] Medication Question (topamax) Social History Tobacco Use Types Packs/Day Years [...] as of this encounter Care Teams Band Edger Relationship Specialty Start Date End Date Selma Good APRN MINE UTILITY OPERATOR [address] [place] [address] [place] [address] PCP - General 04/09/08 04/07/15 Vanda Guerrero MD [address] [place] [address] [place] [address] PCP - General Internal Medicine 04/08/15 01/08/19 Vanda Guerrero MD [address] [place] [address] [place] 91250 PCP - Assigned PCP 07/24/16 06/15/18 Noreen Flores APRN MINE UTILITY OPERATOR [address] [place] [address] [place] [address] PCP - Assigned PCP 06/16/18 08/13/18 Noreen Flores APRN MINE UTILITY OPERATOR [address] [place] [address] [place] [address] PCP - General Nurse Practitioner 01/09/19 12/12/21 Sudha Greene, MAURICIO [address] [address] PCP - General 11/01/22 Noreen Flores APRN MINE UTILITY OPERATOR [address] [place] [address] [place] [address] Assigned PCP 06/16/18 05/26/22 Kalyan Galvan Personal Advocate & Liaison (PAL) 08/08/19 04/26/21 Lashae Trevino [facility] [address] [place] [address] [place] [phone] Pharmacist Pharmacist 10/14/19 12/01/20 Eduardo Sharma MD [address] [place] [address] Assigned Sleep Provider 04/02/2005/07 [place] [address] [address] [facility] 300 [place] [address] Assigned Musculoskeletal Provider 04/02/20 08/24/20 Marcelo Artis PARejiC [address] [facility] 300 [place] [id number] Assigned Musculoskeletal Provider 08/25/20 08/20/21 Rodrigo Man PA-C [address] [place] [address] Assigned Surgical Provider 08/25/20 11/27/20 Noreen Flores APRN MINE UTILITY OPERATOR 3305 [facility] [place] [address] Assigned PCP 08/05/22 03/16/23 Agatha Null DPM, Podiatry/Foot and Ankle Surgery [address] [place] [address] Assigned Musculoskeletal Provider 11/04/22 documented as of this encounter
--- OUTSIDE RECORDS SUMMARY | 2023-07-02 13:30 | XMS_ITS | Encounter Summary ---
Author Name Unknown Organization [place] Address [address] [place] [address] Care Team Providers Care Building Consultant Name Role Phone Selma Good APRN, CNP Primary Care Pro vider Vanda Guerrero MD Primary Care Provider [phone] Vanda Guerrero MD Unavailable [phone] Jeana-JdNoreen castro APRN, CNP Unavailable Jeana-JdNoreen castro APRN, CNP Unavailable Jeana-JdNoreen castro APRN, CNP Primary Car e Provider Kalyan Galvan Unavailable Unavailable Lashae Trevino [facility] Unavailable [phone] Eduardo Sharma MD Unavailable Rios Monteiro MD Unavailable [phone] Marcelo Artis PA-C Unavailable [phone] Rodrigo ManC Unavailable [phone] Jeana-JdNoreen castro APRN, CNP Unavailable Sudha Greene NP Primary Care Provider [phone] Agatha NullM, Podiatry /Foot and Ankle Surgery Unavailable Reason for Visit * Reason Onset Date Comments Medication Problem 06/22/2014 amitriptline side effects Encounter Details Date Type Department Care Team (Late st Contact Info) Description 06/22/2014 [facility] [address] [place] [address] [place] [phone] Selma Good APRN SITE SAFETY MANAGER [address] [place] [address] [place] [address] Medication Problem (amitriptline side effe... Social History Tobacco Use Types Packs/Day Years [...] documented as of this encounter Care Teams Building Consultant Relationship Specialty Start Date End Date Selma Good APRN SITE SAFETY MANAGER [address] [place] [address] [place] [address] PCP - General 04/09/08 04/07/15 Vanda Guerrero MD [address] [place] [address] [place] [address] PCP - General Internal Medicine 04/08/15 01/08/19 Vanda Guerrero MD [address] [place] [address] [place] [address]71 PCP - Assigned PCP 07/24/16 06/15/18 Noreen Flores APRN SITE SAFETY MANAGER [address] [place] [address] [place] [address] PCP - Assigned PCP 06/16/18 08/13/18 Noreen Flores APRN SITE SAFETY MANAGER [address] [place] [address] [place] [address] PCP - General Nurse Practitioner 01/09/19 12/12/21 Sudha Greene NP [address] [address] PCP - General 11/01/22 Noreen Flores APRN SITE SAFETY MANAGER [address] [place] [address] [place] [address] Assigned PCP 06/16/18 05/26/22 Kalyan Galvan Personal Advocate & Liaison (PAL) 08/08/19 04/26/[address] [address] [address] [place] [address] [place] [phone] Pharmacist Pharmacist 10/14/19 12/01/20 Eduardo Sharma MD [address] [place] [address] Assigned Sleep Provider 04/02/2005/07 Rios Monteiro MD [address] [place] [address] 224417 Assigned Musculoskeletal Provider 04/02/20 08/24/20 Marcelo Artis PA-C [id number] [place] [address] 300 [place] [address] Assigned Musculoskeletal Provider 08/25/20 08/20/21 Rodrigo Man PA-C [address] [place] [address] Assigned Surgical Provider 08/25/20 11/27/20 Noreen Flores APRN SITE SAFETY MANAGER 3305 [facility] [place] [address] Assigned PCP 08/05/22 03/16/23 Agatha Null, DPM, Podiatry/Foot and Ankle Surgery [address] [place] [address] Assigned Musculoskeletal Provider 11/04/22 documented as of this encounter
--- OUTSIDE RECORDS SUMMARY | 2023-07-02 13:30 | XMS_ITS | Encounter Summary ---
Author Name Unknown Organization [place] Address [address] [place] [address] Care Team Providers Care Greeting Card Editor Name Role Phone Selma Good APRN CHIP APPLYING MACHINE TENDER Primary Care Pro vider Vanda Guerrero MD Primary Care Provider [phone] Vanda Guerrero MD Unavailable [phone] Jeana-JdNoreen castro APRN, CNP Unavailable Jeana-JdNoreen castro APRN, CNP Unavailable Jeana-JdNoreen castro APRN CHIP APPLYING MACHINE TENDER Primary Car e Provider Kalyan Galvan Unavailable Unavailable Lashae Trevino [facility] Unavailable [phone] Eduardo Sharma MD Unavailable Rios Monteiro MD Unavailable [phone] Marcelo Artis PA-C Unavailable [phone] Rodrigo Man PA-C Unavailable [phone] Jeana-JdNoreen castro APRN CHIP APPLYING MACHINE TENDER Unavailable Sudha Greene NP Primary Care Provider [phone] Agatha NullM, Podiatry /Foot and Ankle Surgery Unavailable Encounter Details Date Type Department Care Team (Late st Contact Info) Description 12/05/2012 [facility] Medical Advice [address] [place] [phone] Alejo Casas Social History Tobacco Use Types [...] documented as of this encounter Care Teams Greeting Card Editor Relationship Specialty Start Date End Date Selma Good APRN CHIP APPLYING MACHINE TENDER [address] [place] [address] [place] [address] PCP - General 04/09/08 04/07/15 Vanda Guerrero MD [address] [place] [address] [place] [address] PCP - General Internal Medicine 04/08/15 01/08/19 Vanda Guerrero MD [address] [place] [address] [place] [address] PCP - Assigned PCP 07/24/16 06/15/18 Noreen Flores APRN CHIP APPLYING MACHINE TENDER [address] [place] [address] [place] [address] PCP - Assigned PCP 06/16/18 08/13/18 Noreen Flores APRN CHIP APPLYING MACHINE TENDER 3305 [facility] [place] [address] PCP - General Nurse Practitioner 01/09/19 12/12/21 Sudha Greene NP [address] [address] PCP - General 11/01/22 Noreen Flores, SEAN CHIP APPLYING MACHINE TENDER [address] [place] [address] [place] [address] Assigned PCP 06/16/18 05/26/22 Kalyan Galvan Personal Advocate & Liaison (PAL) 08/08/19 04/26/21 [facility] [address] [place] [address] [place] [address] Pharmacist Pharmacist 10/14/19 12/01/20 Eduardo Sharma MD [address] [place] [place] [id number] Assigned Sleep Provider 04/02/2005/07 [place] [address] [facility] [address] [place] [address] Assigned Musculoskeletal Provider 04/02/20 08/24/20 Marcelo Artis PA-C [address] [facility] [address] [place], [place] 588677 Assigned Musculoskeletal Provider 08/25/20 08/20/21 Rodrigo Man PA-C [address] [place] [address] [place] [id number] Assigned Surgical Provider 08/25/20 11/27/20 Noreen Flores APRN CHIP APPLYING MACHINE TENDER 3305 [facility] [place] [address] Assigned PCP 08/05/22 03/16/23 Agatha Null DPNita, Podiatry/Foot and Ankle Surgery [address] [place] [address] Assigned Musculoskeletal Provider 11/04/22 documented as of this encounter
--- OUTSIDE RECORDS SUMMARY | 2023-07-02 13:31 | XMS_ITS | Encounter Summary ---
Author Name Unknown Organization [place] Address [address] [place] [address] Care Team Providers Care Conference Service Coordinator Name Role Phone Selma Good APRN, CNP Primary Care Pro vider Vanda Guerrero MD Primary Care Provider [phone] Vanda Guerrero MD Unavailable [phone] Jeana-JdNoreen castro APRN, CNP Unavailable Jeana-JdNoreen castro APRN, CNP Unavailable Jeana-JdNoreen castro APRN OIL WELL DRILLER Primary Car e Provider Kalyan Galvan Unavailable Unavailable Lashae Trevino [facility] Unavailable [phone] Eduardo Sharma MD Unavailable Rios Monteiro MD Unavailable [phone] Marcelo Artis-C Unavailable + [phone] Rodrigo Man-C Unavailable [phone] Jeana-JdNoreen castro APRN, CNP Unavailable Sudha Greene NP Primary Care Provider Agatha NullM, Podiatry /Foot and Ankle Surgery Unavailable Reason for Referral * Referral not Required - Closed Specialty Diagnoses / Procedures Referred By Contac t Referred To Contact Diagnoses Upper back pain Selma Good APRN OIL WELL DRILLER [address] [facility] [place] [address] [facility] DEBRA ValenzuelaSebastián DAY[address] [place] [address] Phone: [phone] Referral ID Status Reason Start Date Expiration Date Visits Re quested Visits Authorized [id number] Closed 01/18/2010 01/18/2010 1 1 Comments Coverage of these services is subject to the terms and limitations of your health insurance plan. Please call member services at your health plan with any benefit or coverage questions. [facility] referral to [facility] (Katelyn Colorado M.D.) [phone]. Any CT, MRI or procedures ordered by your specialist must be performed at a [place] facility OR coordinated by your clinic's referral office at [phone]. If X-rays, CTs or MRIs have been performed, please contact the facility where they were done, to arrange for scrap picker prior to your scheduled appointment. Please bring this referral request to your appointment and present it to your specialist. Reason for Visit * Reason Onset Date Comments Referral 01/17/2010 Encounter Details Date Type Department Care Team (Late st Contact Info) Description 01/17/2010 [facility] [place] [address] [place] [address] Selma Good APRN OIL WELL DRILLER [address] [facility] [place] [address] Referral Social History Tobacco Use Types Packs/Day Years [...] Procedure Name Priority Date/Time Associated Diagnosis Comments ZZ CONSULT PLASTIC SURGERY Routine 01/31/2010 Upper back pain documented in this encounter Results * CONSULT PLASTIC SURGERY (01/31/2010) Selma Good APRN OIL WELL DRILLER REFERRAL documented in this encounter Visit Diagnoses Diagnosis Upper back pain- Primary Pain in thoracic spine documented in this encounter Additional Health Concerns Infection Onset Date Last Indicated Resolved Time Rule Out COVID-19 08/25/2020 08/25/2020 08/26/2020 3:23 PM CDT Rule Out COVID-19 11/26/2022 11/26/2022 11/27/2022 3:38 PM CDT documented as of this encounter Care Teams Conference Service Coordinator Relationship Specialty Start Date End Date Selma Good APRN OIL WELL DRILLER [address] [place] [address] [place] [address] PCP - General 04/09/08 04/07/15 Vanda Guerrero MD [address] [place] [address] [place] [address] PCP - General Internal Medicine 04/08/15 01/08/19 Vanda Guerrero MD [address] [place] [address] [place] [address] PCP - Assigned PCP 07/24/16 06/15/18 Noreen Flores APRN OIL WELL DRILLER [address] [place] [address] [place] [address] PCP - Assigned PCP 06/16/18 08/13/18 Noreen Flores APRN OIL WELL DRILLER [address] [place] [address] [place] [address] PCP - General Nurse Practitioner 01/09/19 12/12/21 Suhda Greene NP [address] [address] PCP - General 11/01/22 Noreen Flores APRN OIL WELL DRILLER [address] [place] [address] [place] [address] Assigned PCP 06/16/18 05/26/22 Kalyan Galvan Personal Advocate & Liaison (PAL) 08/08/19 04/26/21 Lashae Trevino, [facility] [place] [address] Pharmacist Pharmacist 10/14/19 12/01/20 Eduardo Sharma MD [address] [place] [address] Assigned Sleep Provider 04/02/2005/07 [place] [address] [place] [address] Assigned Musculoskeletal Provider 04/02/20 08/24/20 Marcelo Artis PA-C [address] [place] [address] Assigned Musculoskeletal Provider 08/25/20 08/20/21 Rodrigo Man PA-C [address] [place] [address]345 Assigned Surgical Provider 08/25/20 11/27/20 Noreen Flores APRN OIL WELL DRILLER [address] [place] [address] [place] [address] Assigned PCP 08/05/22 03/16/23 Agatha Null, MARÍA, Podiatry/Foot and Ankle Surgery [address] [place] [address] Assigned Musculoskeletal Provider 11/04/22 documented as of this encounter
--- OUTSIDE RECORDS SUMMARY | 2023-07-02 13:31 | XMS_ITS | Encounter Summary ---
Author Name Unknown Organization [place] Address [address] [place] [address] Care Team Providers Care Elementary Substitute Teacher Name Role Phone Selma Good APRN CREEL SELECTOR Primary Care Pro vider Vanda Guerrero MD Primary Care Provider [phone] Vanda Guerrero MD Unavailable [phone] Jeana-JdNoreen castro APRN, CNP Unavailable Jeana-JdNoreen castro APRN, CNP Unavailable Jeana-JdNoreen castro APRN CREEL SELECTOR Primary Car e Provider Kalyan Galvan Unavailable Unavailable Lashae Trevino [facility] Unavailable [phone] Eduardo Sharma MD Unavailable Rios Monteiro MD Unavailable [phone] Marcelo Arits PA-C Unavailable [phone] Rodrigo Man PA-C Unavailable [phone] Jeana-JdNoreen castro APRN CREEL SELECTOR Unavailable Sudha Greene NP Primary Care Provider Agatha NullM, Podiatry /Foot and Ankle Surgery Unavailable Encounter Details Date Type Department Care Team (Late st Contact Info) Description 01/11/2010 [facility] Medical Advice [address] [place] [phone] Alejo Casas Social History Tobacco Use Types [...] as of this encounter Care Teams Elementary Substitute Teacher Relationship Specialty Start Date End Date Selma Good APRN CREEL SELECTOR [address] [place] [address] [place] [address] PCP - General 04/09/08 04/07/15 Vanda Guerrero MD [address] [place] [address] [place] [address] PCP - General Internal Medicine 04/08/15 01/08/19 Vanda Guerrero MD [address] [place] [address] [place] [address] PCP - Assigned PCP 07/24/16 06/15/18 Noreen Flores APRN CREEL SELECTOR [address] [place] [address] [place] [address] PCP - Assigned PCP 06/16/18 08/13/18 Noreen Flores APRN CREEL SELECTOR [address] [place] [address] [place] [address] PCP - General Nurse Practitioner 01/09/19 12/12/21 Sudha Greene NP [address] [address] PCP - General 11/01/22 Noreen Flores APRN CREEL SELECTOR [address] [facility] [place] [address] Assigned PCP 06/16/18 05/26/22 Kalyan Galvan Personal Advocate & Liaison (PAL) 08/08/19 04/26/21 Lashae Trevino, [facility] [address] [facility] [place] [address] Pharmacist Pharmacist 10/14/19 12/01/20 Eduardo Sharma MD [address] [place] [address] Assigned Sleep Provider 04/02/2005/07 [place] [address] [facility] [address] [place] [address] Assigned Musculoskeletal Provider 04/02/20 08/24/20 Marcelo Artis PA-C [address] [facility] [address] [place] [address] Assigned Musculoskeletal Provider 08/25/20 08/20/21 Rodrigo Man PA-C [address] [place] [address] Assigned Surgical Provider 08/25/20 11/27/20 Noreen Flores APRN CREEL SELECTOR [address] [facility] [place] [address] Assigned PCP 08/05/22 03/16/23 Agatha Null DPM, Podiatry/Foot and Ankle Surgery [address] [place] [address] Assigned Musculoskeletal Provider 11/04/22 documented as of this encounter
--- OUTSIDE RECORDS SUMMARY | 2023-07-02 13:31 | XMS_ITS | Encounter Summary ---
Author Name Unknown Organization [facility] Address [address], [place] [address] Care Team Providers Care Manager Target Name Role Phone Unassigned, Provider Primary Care Provider Unava ilable Encounter Details Date Type Department Care Team Description 07/26/2004 [facility] Gavin Justice MD [address] [place] [address] Social History Tobacco Use Types Packs/Day Years Used Date Smoking Tobacco: Never Smokeless Tobacco: Never Alcohol Use Standard Drinks/Week Comments Yes 0 (1 standard drink = 0.6 oz pur e alcohol) rarely Sex and Gender Information Value Date Recorded Sex Assigned at Not on file Gender Identity Not on file Sexual Orientation Not on file documented as of this encounter Procedure Notes * Jerome Garg - 07/26/2004 12:00 AM ENVIRONMENTAL AUDITOR DATE OF SURGERY: 07/26/2004 STAFF SURGEON: Gavin [...] nerve impingement. Therefore, she is referred to [facility] pain clinic for evaluation for epidural steroid [...] Justice MD Transcribed: 07/26/2004 14:26:15 Doc #: [id number] cc: Jose Colin, , Primary/Referring DO NOT SIGN UNLESS PRESENT FOR PROCEDURE I attest that I was present for and participated in the ma portions of this procedure(s) in compliance with the Health Care Financing Administration Teaching Physician Guidelines. Signed Date Regions Staff Physician 1 Page 2 Patient Name: PADMINI CHOI Visit Date: 07/26/2004 OUTPATIENT OPERATIVE REPORT CONFIDENTIAL MEDICAL RECORD [facility] [address] [place] [address] Page 1 Patient: PADMINI CHOI [id number] Date of : 1965 Visit Date: 07/26/2004 OUTPATIENT OPERATIVE REPORT documented in this encounter Plan of Treatment Not on file documented as of this encounter Visit Diagnoses Not on filedocumented in this encounter Care Teams Manager Target Relationship Specialty Start Date End Date Unassigned, Provider [address] [place] [address] PCP - General 09/18/08 documented as of this encounter
--- OUTSIDE RECORDS SUMMARY | 2023-07-02 13:31 | XMS_ITS | Clinical Summary ---
Author Name Unknown Organization [facility] Address [address] [place] [address] Care Team Providers Care Shipping And Receiving Coordinator Name Role Phone Unassigned, Provider Primary Care Provider Unava ilable Source Comments You are receiving this document as you are listed as the primary care provider,follow-up provider, or the patient has been referred to you for consultation.This is in compliance with the Medicare andMedicaid EHR Incentive Program,which states Providers who transition their patient to another setting of careor provider of care or refers their patient to another provider of care shouldprovide summary care record for each transition of care or referral. [facility] Allerg[facility] Active Allergy Reactions Criticality Noted Date Comments Erythromycin Hives High 06/20/2001 Medications Medication Sig Dispensed Refills Start Date End Date Status OMEPRAZOLE (PRILOSEC) 20MG ORAL CAPSIndications:GERD (gastroesophageal reflux disease) One by mouth every day 30 0 05/03/2007 Active Additional Information Patient taking differently: 20 mgOralBID, Reported on 05/25/2021 ASPIRIN 81 MG OR CHEW Take one tablet by mouth every day. 0 01/28/2008 Active topiramate (TOPAMAX) 50 MG tablet Take 50 mg by mouth daily. 0 Active metFORMIN (GLUCOPHAGE) 500 MG tablet Take 500 mg by mouth two times a day. 0 05/03/2021 Active simvastatin (ZOCOR) 20 MG tablet Take 20 mg by mouth daily. 0 05/03/2021 Active DULoxetine (CYMBALTA) 60 MG capsule Take 60 mg by mouth daily. 0 05/13/2021 Active fluticasone propionate (FLONASE) 50 MCG/ACT nasal solution Place 50 mL into both nostrils daily. 0 05/20/2021 Active SUMAtriptan (IMITREX) 25 MG tablet Take 25 mg by mouth two times daily as needed. 0 05/17/2021 Active cholecalciferol (VITAMIND3) 50 MCG (2000 UT) tablet Take 2,000 Units by mouth two times a day. 0 Active gabapentin (NEURONTIN) 300 MG capsule Take 600 mg by mouth daily at bedtime. 0 04/20/2021 Active Calcium Polycarbophil (FIBER) 625 MG Take 500 mg by mouth 4 times a day. 0 Active methylPREDNISolone (MEDROL 21 TABLET DOSEPACK) 4 MG tablet Follow package directions 21 Tablet 0 05/25/2021 Active Active Problems Problem Noted Date Diagnosed Date CAREPLAN: ANTI-COAGULATION 05/03/2007 Overview: Coumadin disc 01/27/08 ; CAREPLAN: ANTI-COAGULATION(Exp-05/01/08) DVT (deep venous thrombosis) 05/01/2007 Overview: Patient [...] Dates Next Due Flu Vac (3+ yrs) 03/09/2011,04/08/2010, 8 Influenza IIV4 (Quadrivalent ) 0.5mL (22158) 06/12/2017,03/23/2016,04/08/2015, 013 PPSV23 (Pneumovax) 10/06/2014 Pfizer Monovalent 12+ Purple Top 09/24/2020,08/10 Td (7+ yrs) 06/16/2005 Tdap 03/23/2016 Family History Medical History Relation Name Comments Coronary Artery Disease Father Diabetes, Type II Father Hypertension Father Kidney Disorder Father Other Father sky's Diabetes, Type II Mother Hypertension Mother Diabetes, Type II Brother Cancer, Ovary Other first cousin, maternal, diagnosed about age 32 Diabetes, Type II [...] on file Sexual Orientation Not on file Last Filed Vital Signs Vital Sign Reading Time Taken Comments Blood Pressure 120/62 05/25/2021 11:09 AM DRY GOODS INSPECTOR Pulse 59 05/25/2021 11:09 AM DRY GOODS INSPECTOR Temperature 36.7 ??C (98.1 ??F) 05/25/2021 1 1:09 AM DRY GOODS INSPECTOR Respiratory Rate 16 08/23/2007 1:13 PM CDT Oxygen Saturation 97% 08/23/2007 1:13 PM CDT Inhaled Oxygen Concentration - - Weight 78.8 kg (173 lb 12.8 oz) 021 11:09 AM DRY GOODS INSPECTOR Height 160 cm (5' 3) 08/23/2007 1:13 PM CDT Body Mass Index - - Plan of Treatment Health Maintenance Due Date Last Done Comments Colon Cancer Screening Plan Due 1965 Hep C Screening (Preventive Services) 1965 HIV Screening (Preventive Services) 1979 Adult Preventive Visit 09/03/2003 09/02/2002, 2000 Mammogram 05/15/2004 05/15/2003 Cervical Cancer Screening Due 10/03/2005 10/02/2005, 09/02/2002, 03/28/2001, Additional history exists Cholesterol 10/07/2010 10/07/2005, 08/11, 09/08/2002, Additional history exists Zoster/Shingles (1 of 2) 2013 COVID-19 Vaccine ( season) 2023 09/24/2020, 09/03/2020 Influenza (#1) 2023 06/12/2017, 03/11, 04/08/2015, Additional history exists DTaP/Tdap/Td (2 - Tdap) 03/23/2026 03/23/20 16, 06/16/2005, 06/16/2005 Pneumococcal Aged Out 10/06/2014 No longer eligi ble based on patient's age to complete this topic HepA Aged Out No longer eligi ble based on patient's age to complete this topic HepB Aged Out No longer eligi ble based on patient's age to complete this topic Hib Aged Out No longer eligi ble based on patient's age to complete this topic IPV (Polio) Aged Out No longer eligi ble based on patient's age to complete this topic MCV4 Aged Out No longer eligi ble based on patient's age to complete this topic Medical Devices Implanted Type Area Emergency Communications Officer Device Identifier Shelf Expiration Date Model / Serial / Lot Kit Infuse Bone Graft Sm - [id number] Implanted:Qty : 1 on 04/15/2007 at [facility] [employer] Left: BACK [employer]am[employer] [id number] / / [id number] Bone Canc Crushed 60cc - [id number] Implanted:Qty : 1 on 04/15/2007 at [facility] [employer] Left: BACK Henna [id number] / OTS [id number] / Device Cage Ray Thrd 12x26 - [id number] Implanted:Qty : 2 on 04/15/2007 at [facility] DEVICE Left: BACK Henna 7-1226 / / [id number] Cage Ray [id number] - [id number] Implanted:Qty : 1 on 04/15/2007 at [facility] Left: BACK [place] 05/11/2008 7-1426 / / [id number] Advance Directives Latest Code Status on File Code Status Date Activated Date Inactivated Comments Full Code 04/15/2007 8:03 AM 04/19/2007 8:53 PM Care Teams Shipping And Receiving Coordinator Relationship Specialty Start Date End Date Unassigned, Provider [address] [place] [address] PCP - General 09/18/08
--- OUTSIDE RECORDS SUMMARY | 2023-07-02 13:31 | XMS_ITS | Encounter Summary ---
Author Name Unknown Organization [facility] Address [address] [place] [address] Care Team Providers Care Curriculum And Instruction Specialist Name Role Phone Selma Good APRN RECYCLER Primary Care Pro vider Vanda Guerrero MD Primary Care Provider [phone] Vanda Guerrero MD Unavailable [phone] Jeana-DjNoreen castro APRN, CNP Unavailable Jeana-JdNoreen castro APRN, CNP Unavailable Jeana-JdNoreen castro APRN RECYCLER Primary Car e Provider Kalyan Galvan Unavailable Unavailable Lashae Trevino [facility] Unavailable [phone] Eduardo Sharma MD Unavailable Rios Monteiro MD Unavailable [phone] Marcelo Artis PA-C Unavailable [phone] Rodrigo ManC Unavailable [phone] Jeana-JdNoreen castro APRN, CNP Unavailable Sudha Greene NP Primary Care Provider Agatha NullM, Podiatry /Foot and Ankle Surgery Unavailable Reason for Visit * Reason Onset Date Comments Orders 01/17/2010 mammo and U/Ss Encounter Details Date Type Department Care Team (Late st Contact Info) Description 01/17/2010 [facility] [place] [phone] Selma Good APRN RECYCLER [address] [place] [address] [place] [address] Orders (mammo and U/Ss) Social History Tobacco Use Types Packs/Day Years [...] documented as of this encounter Care Teams Curriculum And Instruction Specialist Relationship Specialty Start Date End Date Selma Good APRN RECYCLER [address] [place] [address] [place] [address] PCP - General 04/09/08 04/07/15 Vanda Guerrero MD [address] [place] [address] [place] [address] PCP - General Internal Medicine 04/08/15 01/08/19 Vanda Guerrero MD [address] [place] [address] [place] [address] PCP - Assigned PCP 07/24/16 06/15/18 Noreen Flores APRN RECYCLER [address] [place] [address] [place] [address] PCP - Assigned PCP 06/16/18 08/13/18 Noreen Flores APRN RECYCLER [address] [place] [address] [place] [address] PCP - General Nurse Practitioner 01/09/19 12/12/21 Sudha Greene, MAURICIO [address] [address] PCP - General 11/01/22 Noreen Flores APRN RECYCLER [address] [place] [address] [place] [address] Assigned PCP 06/16/18 05/26/22 Kalyan Galvan Personal Advocate & Liaison (PAL) 08/08/19 04/26/21 Lashae Trevino, [facility] [address] [place] [address] [place] [phone] Pharmacist Pharmacist 10/14/19 12/01/20 Eduardo Sharma MD [address] [facility] [address] [place] [id number] Assigned Sleep Provider 04/02/2005/07 [place] [address] [place] [address] Assigned Musculoskeletal Provider 04/02/20 08/24/20 Marcelo Artis, PA-C [address] [place] [address] Assigned Musculoskeletal Provider 08/25/20 08/20/21 Rodrigo Man PA-C [address] [place] [address] Assigned Surgical Provider 08/25/20 11/27/20 Noreen Flores APRN RECYCLER [address] [facility] [place] [address] Assigned PCP 08/05/22 03/16/23 Agatha Null DPM, Podiatry/Foot and Ankle Surgery [address] [place] [address] Assigned Musculoskeletal Provider 11/04/22 documented as of this encounter
--- OUTSIDE RECORDS SUMMARY | 2023-07-02 13:31 | XMS_ITS | Encounter Summary ---
Author Name Unknown Organization [facility] Address [address] [place] [address] Care Team Providers Care Jitney Driver Name Role Phone Selma Good APRN PRE ALGEBRA TEACHER Primary Care Pro vider Vanda Guerrero MD Primary Care Provider [phone] Vanda Guerrero MD Unavailable [phone] Jeana-JdNoreen castro APRN, CNP Unavailable Jeana-JdNoreen castro APRN, CNP Unavailable Jeana-JdNoreen castro APRN PRE ALGEBRA TEACHER Primary Car e Provider Kalyan Galvan Unavailable Unavailable Lashae Trevino [facility] Unavailable [phone] Eduardo Sharma MD Unavailable Rios Monteiro MD Unavailable [phone] Marcelo Artis PA-C Unavailable [phone] Rodrigo Man PA-C Unavailable [phone] Jeana-JdNoreen castro APRN, CNP Unavailable Sudha Greene NP Primary Care Provider Agatha NullM, Podiatry /Foot and Ankle Surgery Unavailable Reason for Visit * Reason Onset Date Comments Patient Request 01/26/2010 Encounter Details Date Type Department Care Team (Late st Contact Info) Description 01/26/2010 MyC Medical Advice [facility] [place] [address] [place] [address] [place] [phone] Selma Good APRN PRE ALGEBRA TEACHER [address] [place] [address] [place] [address] Patient Request Social History Tobacco Use Types Packs/Day Years [...] documented as of this encounter Care Teams Jitney Driver Relationship Specialty Start Date End Date Selma Good APRN PRE ALGEBRA TEACHER [address] [place] [address] [place] [address] PCP - General 04/09/08 04/07/15 Vanda Guerrero MD [address] [place] [address] [place] [address] PCP - General Internal Medicine 04/08/15 01/08/19 Vanda Guerrero MD [address] [place] [address] [place] [address] PCP - Assigned PCP 07/24/16 06/15/18 Noreen Flores APRN PRE ALGEBRA TEACHER [address] [place] [address] [place] [address] PCP - Assigned PCP 06/16/18 08/13/18 Noreen Flores APRN PRE ALGEBRA TEACHER [address] [place] [address] [place] [address] PCP - General Nurse Practitioner 01/09/19 12/12/21 Sudha Greene NP [address] [address] PCP - General 11/01/22 Noreen Flores APRN PRE ALGEBRA TEACHER [address] [place] [address] [place] [address] Assigned PCP 06/16/18 05/26/22 Kalyan Galvan Personal Advocate & Liaison (PAL) 08/08/19 04/26/21 [facility] [address] [place] [address] [place] [phone] Pharmacist Pharmacist 10/14/19 12/01/20 Eduardo Sharma MD [address] [facility] [address] [place] [address] Assigned Sleep Provider 04/02/2005/07 Rios Monteiro MD [address] [place] [id number] Assigned Musculoskeletal Provider 04/02/20 08/24/20 Marcelo Artis, PA-C [address] [facility] [address] [place] [address] Assigned Musculoskeletal Provider 08/25/20 08/20/21 Rodrigo Man PA-C [address] [facility] [address] [place] [address] Assigned Surgical Provider 08/25/20 11/27/20 Noreen Flores APRN PRE ALGEBRA TEACHER [address] [facility] [place] [address] Assigned PCP 08/05/22 03/16/23 Agatha Null, DPM, Podiatry/Foot and Ankle Surgery [address] [place] [place] [address] Assigned Musculoskeletal Provider 11/04/22 documented as of this encounter
--- OUTSIDE RECORDS SUMMARY | 2023-07-02 13:31 | XMS_ITS | Encounter Summary ---
Author Name Unknown Organization [facility] Address [address] [place] [address] Care Team Providers Care Emergency Medical Technician Basic Name Role Phone Selma Good APRN, CNP Primary Care Pro vider Vanda Guerrero MD Primary Care Provider [phone] Vanda Guerrero MD Unavailable [phone] Jeana-JdNoreen castro APRN, CNP Unavailable Jeana-JdNoreen castro APRN, CNP Unavailable Jeana-JdNoreen castro APRN, CNP Primary Car e Provider Kalyan Galvan Unavailable Unavailable Lashae Trevino [facility] Unavailable [phone] Eduardo Sharma MD Unavailable Rios Monteiro MD Unavailable [phone] Marcelo Artis-C Unavailable + [phone] Rodrigo Man-C Unavailable [phone] Jeana-JdNoreen castro APRN, CNP Unavailable Sudha Greene NP Primary Care Provider Agatha Null DPM, Podiatry /Foot and Ankle Surgery Unavailable Reason for Referral * Referral not Required - Closed Specialty Diagnoses / Procedures Referred By Contac t Referred To Contact Diagnoses Migraine headaches Selma Good, SEAN ELECTRICIAN WIRING [address] [facility] [place] [address] [facility] [address] [place] [address] Referral ID Status Reason Start Date Expiration Date Visits Re quested Visits Authorized [id number] Closed 09/18/2008 06/10/2011 1 1 Comments Coverage of these services is subject to the terms and limitations of your health insurance plan. Please call member services at your health plan with any benefit or coverage questions. [facility] referral to [facility] at [phone]. . Any CT, MRI or procedures ordered by your specialist must be performed at a [facility] facility OR coordinated by your clinic's referral office at [phone]. If X-rays, CTs or MRIs have been performed, please contact the facility where they were done, to arrange for orange picker prior to your scheduled appointment. Please bring this referral request to your appointment and present it to your specialist. Reason for Visit * Reason Onset Date Comments Medication Request 09/17/2008 migraine med Encounter Details Date Type Department Care Team (Late st Contact Info) Description 09/17/2008 MyC Medical Advice [facility] [address] [place] [address] DAV[place]ringle [phone] Selma Good APRN ELECTRICIAN WIRING [address] [facility] [place] [address] Medication Request (migraine med) Social History Tobacco Use Types Packs/Day Years [...] Notes * Telephone Encounter - Dafne Guerrero - 09/18/2008 1:37 PM CDT My chart message sent to patient with phone number for [facility]. Ivette Allan M.A. * Telephone Encounter - Selma Good - 09/18/2008 8:18 AM CDT It appears in my note from when I saw her, I recommended referral to neuro, which she declined at that time. It appears imitrex 'knocked her out.' I would recommend [facility] neurology. documented in this encounter Plan of Treatment Not on file documented as of this encounter Procedures Procedure Name Priority Date/Time Associated Diagnosis Comments ZZ CONSULT NEUROLOGY Routine 11/15/2010 Migraine headaches documented in this encounter Results * CONSULT NEUROLOGY (11/15/2010) Selma Good RECLAMATION SUPERVISOR ELECTRICIAN WIRING REFERRAL documented in this encounter Visit Diagnoses Diagnosis Migraine headaches- Primary Migraine, unspecified, without mention of intractable migraine without mention of status migrainosus documented in this encounter Additional Health Concerns Infection Onset Date Last Indicated Resolved Time Rule Out COVID-19 08/25/2020 08/25/2020 08/26/2020 3:23 PM CDT Rule Out COVID-19 11/26/2022 11/26/2022 11/27/2022 3:38 PM CDT documented as of this encounter Care Teams Emergency Medical Technician Basic Relationship Specialty Start Date End Date Selma Good APRN ELECTRICIAN WIRING [address] [place] [address] [place] [address] PCP - General 04/09/08 04/07/15 Vanda Guerrero MD [address] [place] [address] [place] [address] PCP - General Internal Medicine 04/08/15 01/08/19 Vanda Guerrero MD [address] [place] [address] [place] [address] PCP - Assigned PCP 07/24/16 06/15/18 Noreen Flores APRN ELECTRICIAN WIRING [address] [place] [address] [place] [address] PCP - Assigned PCP 06/16/18 08/13/18 Noreen Flores APRN ELECTRICIAN WIRING [address] [place] [address] [place] [address] PCP - General Nurse Practitioner 01/09/19 12/12/21 Sudha Greene NP [address] [address] PCP - General 11/01/22 Noreen Flores, SEAN ELECTRICIAN WIRING [address] [place] [address] [place] [address] Assigned PCP 06/16/18 05/26/22 Kalyan Galvan Personal Advocate & Liaison (PAL) 08/08/19 04/26/21 [facility] [address] [facility] [place] [address] Pharmacist Pharmacist 10/14/19 12/01/20 dEuardo Sharma MD [address] [facility] 103 [place] [id number] Assigned Sleep Provider 04/02/2005/07 [place] [address] [facility] 300 [place] [id number] Assigned Musculoskeletal Provider 04/02/20 08/24/20 Marcelo Artis PA-C [address] [facility] 300 [place] [address] Assigned Musculoskeletal Provider 08/25/20 08/20/21 Rodrigo Man PA-C [address] [facility] 450 [place] [address] Assigned Surgical Provider 08/25/20 11/27/20 Noreen Flores APRN ELECTRICIAN WIRING [address] [facility] [place] [address] Assigned PCP 08/05/22 03/16/23 Agatha Null, DPNita, Podiatry/Foot and Ankle Surgery [address] [facility] 300 [place] [address] Assigned Musculoskeletal Provider 11/04/22 documented as of this encounter
--- OUTSIDE RECORDS SUMMARY | 2023-07-02 13:31 | XMS_ITS | Encounter Summary ---
Author Name Unknown Organization [facility] Address [address] [place] [address] Care Team Providers Care Medical Imaging Tech Name Role Phone Selma Good APRN TIRE FIXER Primary Care Pro vider Vanda Guerrero MD Primary Care Provider [phone] Vanda Guerrero MD Unavailable [phone] Jeana-JdNoreen castro APRN, CNP Unavailable Jeana-JdNoreen castro APRN, CNP Unavailable Jeana-JdNoreen castro APRN TIRE FIXER Primary Car e Provider Kalyan Galvan Unavailable Unavailable Lashae Trevino [facility] Unavailable [phone] Eduardo Sharma MD Unavailable Rios Monteiro MD Unavailable [phone] Marcelo Artis PA-C Unavailable [phone] Rodrigo Man PA-C Unavailable [phone] Jeana-JdNoreen castro APRN TIRE FIXER Unavailable Sudha Greene NP Primary Care Provider Agatha NullM, Podiatry /Foot and Ankle Surgery Unavailable Encounter Details Date Type Department Care Team (Late st Contact Info) Description 04/22/2009 MyC Medical Advice Initial Department Mychart, [facility] Social History Tobacco Use Types Packs/Day Years [...] as of this encounter Care Teams Medical Imaging Tech Relationship Specialty Start Date End Date Selma Good APRN TIRE FIXER [address] [facility] [place] [address] PCP - General 04/09/08 04/07/15 Vanda Guerrero MD [address] [place] [address] [place] [address] PCP - General Internal Medicine 04/08/15 01/08/19 Vanda Guerrero MD [address] [place] [address] [place] [address] PCP - Assigned PCP 07/24/16 06/15/18 Noreen Flores APRN TIRE FIXER [address] [facility] [place] [address] PCP - Assigned PCP 06/16/18 08/13/18 Noreen Flores APRN TIRE FIXER [address] [place] [address] [place] [address] PCP - General Nurse Practitioner 01/09/19 12/12/21 Sudha Greene, MAURICIO [address] [address] PCP - General 11/01/22 Jeana-Noreen Miles APRN TIRE FIXER [address] [facility] [place] [address] Assigned PCP 06/16/18 05/26/22 Kalyan Galvan Personal Advocate & Liaison (PAL) 08/08/19 04/26/21 Lashae Trevino, [facility] [address] [facility] [place] [address] Pharmacist Pharmacist 10/14/19 12/01/20 Eduardo Sharma MD [address] [place] [address] [place] [address] Assigned Sleep Provider 04/02/2005/07 [place] [address] [place] [address] [place] [address] Assigned Musculoskeletal Provider 04/02/20 08/24/20 Marcelo Artis PA-C [address] [place] [address] [place] [address] Assigned Musculoskeletal Provider 08/25/20 08/20/21 Rodrigo Man PA-C [address] [place] 450 [place] [address] Assigned Surgical Provider 08/25/20 11/27/20 Noreen Flores APRN TIRE FIXER [address] [facility] [place] [address] Assigned PCP 08/05/22 03/16/23 Agatha Null DPM, Podiatry/Foot and Ankle Surgery [address] [place] [address] Assigned Musculoskeletal Provider 11/04/22 documented as of this encounter
--- OUTSIDE RECORDS SUMMARY | 2023-07-02 13:31 | XMS_ITS | Encounter Summary ---
Author Name Unknown Organization [facility] Address [address] [place] [address] Care Team Providers Care Manager University Name Role Phone Selma Good APRN DISINTEGRATOR Primary Care Pro vider Vanda Guerrero MD Primary Care Provider [phone] Vanda Guerrero MD Unavailable [phone] Jeana-JdNoreen castro APRN, CNP Unavailable Jeana-JdNoreen castro APRN, CNP Unavailable Jeana-JdNoreen castro APRN DISINTEGRATOR Primary Car e Provider Kalyan Galvan Unavailable Unavailable Lashae Trevino [facility] Unavailable [phone] Eduardo Sharma MD Unavailable Rios Monteiro MD Unavailable [phone] Marcelo Artis PA-C Unavailable [phone] Rodrigo Man PA-C Unavailable [phone] Jeana-JdNoreen castro APRN DISINTEGRATOR Unavailable Sudha Greene NP Primary Care Provider Agatha NullM, Podiatry /Foot and Ankle Surgery Unavailable Encounter Details Date Type Department Care Team (Late st Contact Info) Description 12/14/2009 [facility] Medical Advice [address] [place] [phone] Alejo Casas Social History Tobacco Use Types [...] as of this encounter Care Teams Manager University Relationship Specialty Start Date End Date Selma Good APRN DISINTEGRATOR [address] [place] [address] [place] [address] PCP - General 04/09/08 04/07/15 Vanda Guerrero MD [address] [place] [address] [place] [address] PCP - General Internal Medicine 04/08/15 01/08/19 Vanda Guerrero MD [address] [place] [address] [place] [address] PCP - Assigned PCP 07/24/16 06/15/18 Noreen Flores APRN DISINTEGRATOR [address] [place] [address] [place] [address] PCP - Assigned PCP 06/16/18 08/13/18 Noreen Flores APRN DISINTEGRATOR [address] [place] [address] [place] [address] PCP - General Nurse Practitioner 01/09/19 12/12/21 Sudha Greene NP [address] [address] PCP - General 11/01/22 Noreen Flores APRN DISINTEGRATOR 3305 [facility] [place] [address] Assigned PCP 06/16/18 05/26/22 Kalyan Galvan Personal Advocate & Liaison (PAL) 08/08/19 04/26/21 Lashae Trevino, [facility] 1440 [facility] [place] [address] Pharmacist Pharmacist 10/14/19 12/01/20 Eduardo Sharma MD [address] [place] [address] [place] [address] Assigned Sleep Provider 04/02/2005/07 [place] [address] [facility] 300 [place] [address] Assigned Musculoskeletal Provider 04/02/20 08/24/20 Marcelo Artis PA-C [address] [facility] [place] [address] [place] [address] Assigned Musculoskeletal Provider 08/25/20 08/20/21 Rodrigo Man PA-C [address] [place] [address] [place] [address] Assigned Surgical Provider 08/25/20 11/27/20 Noreen Flores APRN DISINTEGRATOR 3305 [facility] [place] [address] Assigned PCP 08/05/22 03/16/23 Agatha Null DPM, Podiatry/Foot and Ankle Surgery [address] [place] [address] Assigned Musculoskeletal Provider 11/04/22 documented as of this encounter
--- OUTSIDE RECORDS SUMMARY | 2023-07-02 13:31 | XMS_ITS | Encounter Summary ---
Author Name Unknown Organization [facility] Address [address] [place] [address] Care Team Providers Care Privacy Specialist Name Role Phone Selma Good APRN INFORMATICIST Primary Care Pro vider Vanda Guerrero MD Primary Care Provider [phone] Vanda Guerrero MD Unavailable [phone] Jeana-JdNoreen castro APRN, CNP Unavailable Jeana-JdNoreen castro APRN, CNP Unavailable Jeana-JdNoreen castro APRN INFORMATICIST Primary Car e Provider Kalyan Galvan Unavailable Unavailable Lashae Trevino [facility] Unavailable [phone] Eduardo Sharma MD Unavailable Rios Monteiro MD Unavailable [phone] Marcelo Artis PA-C Unavailable + [phone] Rodrigo Man PA-C Unavailable [phone] Jeana-JdNoreen castro APRN, CNP Unavailable Sudha Greene NP Primary Care Provider Agatha NullM, Podiatry /Foot and Ankle Surgery Unavailable Reason for Visit * Reason Onset Date Comments Patient Request 07/01/2009 Encounter Details Date Type Department Care Team (Late st Contact Info) Description 07/01/2009 [facility] [address] [place] [address] [place] [phone] Selma Good APRN INFORMATICIST [address] [place] [address] [place] [address] Patient Request Social History Tobacco Use Types [...] documented as of this encounter Care Teams Privacy Specialist Relationship Specialty Start Date End Date Selma Good APRN INFORMATICIST [address] [place] [address] [place] [address] PCP - General 04/09/08 04/07/15 Vanda Guerrero MD [address] [place] [address] [place] [address] PCP - General Internal Medicine 04/08/15 01/08/19 Vanda Guerrero MD [address] [place] [address] [place] [address] PCP - Assigned PCP 07/24/16 06/15/18 Noreen Flores APRN INFORMATICIST [address] [place] [address] [place] [address] PCP - Assigned PCP 06/16/18 08/13/18 Noreen Flores APRN INFORMATICIST [address] [place] [address] [place] [address] PCP - General Nurse Practitioner 01/09/19 12/12/21 Sudha Greene, MAURICIO [address] [address] PCP - General 11/01/22 Noreen Flores APRN INFORMATICIST [address] [place] [address] [place] [address] Assigned PCP 06/16/18 05/26/22 Kalyan Galvan Personal Advocate & Liaison (PAL) 08/08/19 04/26/21 [facility] [place] [address] Pharmacist Pharmacist 10/14/19 12/01/20 Eduardo Sharma MD [address] [place] [address] Assigned Sleep Provider 04/02/2005/07 Rios Monteiro MD [address] [place] [address] 300 [place] [address] Assigned Musculoskeletal Provider 04/02/20 08/24/20 Marcelo Artis PARejiC [address] [facility] 300 [place] [address] Assigned Musculoskeletal Provider 08/25/20 08/20/21 Rodrigo Man PA-C [address] [place] [place] [address] Assigned Surgical Provider 08/25/20 11/27/20 Noreen Flores APRN INFORMATICIST 3305 [facility] [place] [address] Assigned PCP 08/05/22 03/16/23 Agatha Null DPM, Podiatry/Foot and Ankle Surgery [address] [place] [address] [place] [address] Assigned Musculoskeletal Provider 11/04/22 documented as of this encounter
--- OUTSIDE RECORDS SUMMARY | 2023-07-02 13:31 | XMS_ITS | Encounter Summary ---
Author Name Unknown Organization [facility] Address [address] [place] [address] Care Team Providers Care Poultry Buyer Name Role Phone Selma Good APRN MIXED LIVESTOCK FARMER Primary Care Pro vider Vanda Guerrero MD Primary Care Provider [phone] Vanda Guerrero MD Unavailable [phone] Jeana-JdNoreen castro APRN, CNP Unavailable Jeana-JdNoreen castro APRN, CNP Unavailable Jeana-JdNoreen castro APRN MIXED LIVESTOCK FARMER Primary Car e Provider Kalyan Galvan Unavailable Unavailable Lashae Trevino [facility] Unavailable [phone] Eduardo Sharma MD Unavailable Rios Monteiro MD Unavailable [phone] Marcelo Artis PA-C Unavailable [phone] Rodrigo Man PA-C Unavailable [phone] Jeana-JdNoreen castro APRN MIXED LIVESTOCK FARMER Unavailable Sudha Greene NP Primary Care Provider Agatha NullM, Podiatry /Foot and Ankle Surgery Unavailable Encounter Details Date Type Department Care Team (Late st Contact Info) Description 09/18/2008 MyC Medical Advice Initial Department Mychart, [facility] Obesity, Unspecified (Primary Dx) Social History Tobacco Use Types [...] as of this encounter Visit Diagnoses Diagnosis Obesity, unspecified- Primary documented in this encounter Additional Health Concerns Infection Onset Date Last Indicated Resolved Time Rule Out COVID-19 08/25/2020 08/25/2020 08/26/2020 3:23 PM CDT Rule Out COVID-19 11/26/2022 11/26/2022 11/27/2022 3:38 PM CDT documented as of this encounter Care Teams Poultry Buyer Relationship Specialty Start Date End Date Selma Good APRN MIXED LIVESTOCK FARMER [address] [place] [address] [place] [address] PCP - General 04/09/08 04/07/15 Vanda Guerrero MD [address] [place] [address] [place] [address] PCP - General Internal Medicine 04/08/15 01/08/19 Vanda Guerrero MD [address] [place] [address] [place] [address] PCP - Assigned PCP 07/24/16 06/15/18 Noreen Flores APRN MIXED LIVESTOCK FARMER [address] [place] [address] [place] [address] PCP - Assigned PCP 06/16/18 08/13/18 Noreen Flores APRN MIXED LIVESTOCK FARMER [address] [place] [address] [place] [address] PCP - General Nurse Practitioner 01/09/19 12/12/21 Sudha Greene NP [address] [address] PCP - General 11/01/22 Noreen Flores APRN MIXED LIVESTOCK FARMER [address] [place] [address] [place] [address] Assigned PCP 06/16/18 05/26/22 Kalyan Galvan Personal Advocate & Liaison (PAL) 08/08/19 04/26/21 Lashae Trevino, [facility] DAV[place] [id number] Pharmacist Pharmacist 10/14/19 12/01/20 Eduardo Sharma MD [address] [place] [address] [place] [id number] Assigned Sleep Provider 04/02/2005/07 [place] [address] [place] [address] [place] [address] Assigned Musculoskeletal Provider 04/02/20 08/24/20 Marcelo Artis PA-C [address] [place] [address] [place] [address] Assigned Musculoskeletal Provider 08/25/20 08/20/21 Rodrigo Man PA-C [address] [place] [address] [place] [id number] Assigned Surgical Provider 08/25/20 11/27/20 Noreen Flores APRN MIXED LIVESTOCK FARMER 3305 [facility] [place] [address] Assigned PCP 08/05/22 03/16/23 Agatha Null DPM, Podiatry/Foot and Ankle Surgery [address] [place] [address] Assigned Musculoskeletal Provider 11/04/22 documented as of this encounter
--- OUTSIDE RECORDS SUMMARY | 2023-07-02 13:31 | XMS_ITS | Encounter Summary ---
Author Name Unknown Organization [facility] Address [address] [place] [address] Care Team Providers Care Freight Broker Name Role Phone Selma Good APRN BOTTLER Primary Care Pro vider Vanda Guerrero MD Primary Care Provider [phone] Vanda Guerrero MD Unavailable [phone] Jeana-JdNoreen castro APRN, CNP Unavailable Jeana-JdNoreen castro APRN, CNP Unavailable Jeana-JdNoreen castro APRN BOTTLER Primary Car e Provider Kalyan Galvan Unavailable Unavailable Lashae Trevino [facility] Unavailable [phone] Eduardo Sharma MD Unavailable Rios Monteiro MD Unavailable [phone] Marcelo Artis PA-C Unavailable [phone] Rodrigo Man PA-C Unavailable [phone] Jeana-JdNoreen castro APRN BOTTLER Unavailable Sudha Greene NP Primary Care Provider Agatha NullM, Podiatry /Foot and Ankle Surgery Unavailable Encounter Details Date Type Department Care Team (Late st Contact Info) Description 05/13/2008 MyC Medical Advice Initial Department Mychart, [facility] Social History Tobacco Use Types Packs/Day Years [...] as of this encounter Care Teams Freight Broker Relationship Specialty Start Date End Date Selma Good APRN BOTTLER 3305 [facility] [place] [address] PCP - General 04/09/08 04/07/15 Vanda Guerrero MD [address] [place] [address] [place] [address] PCP - General Internal Medicine 04/08/15 01/08/19 Vanda Guerrero MD [address] [place] [address] [place] [address] PCP - Assigned PCP 07/24/16 06/15/18 Noreen Flores APRN BOTTLER 3305 [facility] [place] [address] PCP - Assigned PCP 06/16/18 08/13/18 Noreen Flores APRN BOTTLER [address] [place] [address] [place] [address] PCP - General Nurse Practitioner 01/09/19 12/12/21 Sudha Greene, MAURICIO [address] [address] PCP - General 11/01/22 Jeana-Noreen Miles APRN BOTTLER 3305 [facility] [place] [address] Assigned PCP 06/16/18 05/26/22 Kalyan Galvan Personal Advocate & Liaison (PAL) 08/08/19 04/26/21 Lashae Trevino, [facility] 1440 [facility] [place] [address] Pharmacist Pharmacist 10/14/19 12/01/20 Eduardo Sharma MD [address] [place] [address] [place] [address] Assigned Sleep Provider 04/02/2005/07 [place] [address] [place] [address] [place] [address] Assigned Musculoskeletal Provider 04/02/20 08/24/20 Marcelo Artis PA-C [address] [place] [address] [place] [address] Assigned Musculoskeletal Provider 08/25/20 08/20/21 Rodrigo Man PA-C [address] [place] [address] [place] [address] Assigned Surgical Provider 08/25/20 11/27/20 Noreen Flores APRN BOTTLER 3305 [facility] [place] [address] Assigned PCP 08/05/22 03/16/23 Agatha Null DPM, Podiatry/Foot and Ankle Surgery [address] [place] [address] Assigned Musculoskeletal Provider 11/04/22 documented as of this encounter
--- OUTSIDE RECORDS SUMMARY | 2023-07-02 13:31 | XMS_ITS | Encounter Summary ---
Author Name Unknown Organization [facility] Address [address] [place] [address] Care Team Providers Care Mattress Stripper Name Role Phone Unassigned, Provider Primary Care Provider Unava ilable Encounter Details Date Type Department Care Team Description 08/23/2004 [facility] [address] [place] [address] Gavin Justice MD [address] [place] [address] Social History Tobacco Use Types Packs/Day Years [...] encounter Procedure Notes * Jerome Garg - 08/23/2004 12:00 AM E COMMERCE MERCHANT DATE OF SURGERY: August 23, 2004. STAFF [...] Justice MD Transcribed: 08/24/2004 07:37:56 Doc #: [id number] cc: Jose Colin, , Referring DO NOT SIGN UNLESS PRESENT FOR PROCEDURE I attest that I was present for and participated in the ma portions of this procedure(s) in compliance with the Health Care Financing Administration Teaching Physician Guidelines. Signed Date Regions Staff Physician 1 Page 2 Patient Name: MEGAN CHOI Visit Date: 08/23/2004 OUTPATIENT OPERATIVE REPORT [facility]IAL MEDICAL RECORD [address] [phone] Page 1 Patient: MEGAN CHOI Location: PAIN HPN: [id number] Date of : 1965 Visit Date: 08/23/2004 OUTPATIENT OPERATIVE REPORT documented in this encounter Plan of Treatment Not on file documented as of this encounter Visit Diagnoses Not on filedocumented in this encounter Care Teams Mattress Stripper Relationship Specialty Start Date End Date Unassigned, Provider [address] [place] [address] PCP - General 09/18/08 documented as of this encounter
--- NOTE | 2023-07-02 13:45 | CRLHL7_ITS ---
For Patients: As a result of the Century Cures Act, medical imaging exams and procedure reports are released immediately into your electronic medical record. You may view this report before your referring provider. If you have questions, please contact your health care provider. INDICATION: Right mid thigh bruising/tenderness. History of left leg DVT. COMPARISON: None. TECHNIQUE: A compression venous ultrasound exam was performed of the right lower extremity using ireland-scale imaging, color Doppler and spectral Doppler analysis. FINDINGS: Sonographic imaging of the right lower extremity demonstrates normal compressibility and color Doppler venous blood flow within the common femoral, femoral, deep femoral, and greater saphenous veins. At a lower level the popliteal, peroneal, and posterior tibial veins also show normal compressibility and color Doppler venous blood flow. Evaluation of the right mid thigh in the area of bruising demonstrates no sonographic abnormality. Limited imaging of the contralateral groin demonstrates a normal spectral waveform and color Doppler venous blood flow within the left common femoral vein. IMPRESSION: Negative for acute DVT in the right lower extremity. Dictated by Kirsten Tony MD @ 07/03/2023 1:34:04 AM (Electronically Signed)
== END 2023-07-02 13:22 | disposition home or self-care (01) ==
PROVIDERS: PCP Nurse Practitioner Family; Visit Provider Nurse Practitioner Family
DX: M79.89 Other specified soft tissue disorders (principal); R23.8 Other skin changes; Z86.718 Personal history of other venous thrombosis and embolism
CPT/HCPCS: 93971

== ENCOUNTER 2023-09-25 09:48 | Outpatient (CLI) | payer BC, SELFPAY ==
--- OUTSIDE RECORDS SUMMARY | 2023-09-25 09:54 | XMS_ITS | Encounter Summary ---
Author Name Unknown Organization [facility] Address [address] [place] [address] Care Team Providers Care Equipment Planner Name Role Phone Noreen Flores APRN ASSOCIATE TECHNICIAN Unavailable Noreen Flores APRN ASSOCIATE TECHNICIAN Primary Car e Provider Kalyan Galvan Unavailable Unavailable Eduardo Sharma MD Unavailable Marcelo Artis PA-C Unavailable Noreen Flores APRN ASSOCIATE TECHNICIAN Unavailable Sudha Greene NP Primary Care Provider Agatha NullM, Podiatry /Foot and Ankle Surgery Unavailable [facility] Unavailable Encounter Details Date Type Department Care Team (Late st Contact Info) Description 02/28/2021 MyC Medical Advice [facility] [address] [facility] [address] [place] [address] Lainey Wells Social History Tobacco [...] Friends and Family Patient declined 08/08/2019 Attends [employer] Patient declined 07/13 Active Member of [...] Answer Date Recorded PHQ-2 Score 0 11/10/2020 [facility] - [...] as of this encounter Care Teams Equipment Planner Relationship Specialty Start Date End Date Noreen Flores APRN ASSOCIATE TECHNICIAN [address] [place] [address] DAV[place] GRESHAM [id number] PCP - General Nurse Practitioner 01/09/19 12/12/21 Sudha Greene NP [facility] - [address] [address] PCP - General 11/01/22 Noreen Flores APRN ASSOCIATE TECHNICIAN [address] [place] [address] DAV[place] GRESHAM [id number] Assigned PCP 06/16/18 05/26/22 Kalyan Galvan Personal Advocate & Liaison (PAL) 08/08/19 04/26/21 Eduardo Sharma MD [address] [address] Assigned Sleep Provider 04/02/2005/07 Marcelo Artis, PA-C [address] [address] Assigned Musculoskeletal Provider 08/25/20 08/20/21 Noreen Flores APRN ASSOCIATE TECHNICIAN [address] [place] [address] DAV[place] GRESHAM [id number] Assigned PCP 08/05/22 03/16/23 Agatha Null DPM, Podiatry/Foot and Ankle Surgery [address] [facility] [address] [place] [address] Assigned Musculoskeletal Provider 11/04/22 [facility] [address] DAV[place] ANAYA [address] Assigned PCP 07/05/23 documented as of this encounter
--- OUTSIDE RECORDS SUMMARY | 2023-09-25 09:54 | XMS_ITS ---
Author Name Unknown Organization [facility] Address [address] [place] [address] Care Team Providers Care Stitching Department Supervisor Name Role Phone Unavailable Unavailable Unavailable Surgery Details Not on file Complications Check Surgery Details section. Procedure Estimated Blood Loss Check Surgery Details section. Procedure Findings Check Surgery Details section. Procedure Specimens Taken Check Surgery Details section.
--- OUTSIDE RECORDS SUMMARY | 2023-09-25 09:54 | XMS_ITS | Clinical Summary ---
Author Name Unknown Organization [facility] Address [address] [place] [address] Care Team Providers Care Cnc Maintenance Technician Name Role Phone Unavailable Primary Care Provider Unavailabl e Source Comments Patient records contain information from all sites at [facility]. For routine questions regarding patient records, call [phone] during business hours, M-F 8:00 AM - 5:00 PM Central Time. Record requests for emergency care only can be directed to [phone] at any time.[facility] Allergies Active Allergy Reactions Criticality Noted Date Comments Azithromycin Other (see comments) 01/10/2022 Erythromycin Rash 11/16/2021 Medications Medication Sig Dispensed Refills Start Date End Date Status DULoxetine (CYMBALTA) [address] capsule Take 60 mg by mouth daily. 05/13/2021 Active simvastatin (ZOCOR) 20 mg tablet Daily 08/08/2019 Active metFORMIN (GLUCOPHAGE) 500 mg tablet Take 1,000 mg by mouth 2 (two) times a day with meals. 05/03/2021 Active gabapentin (NEURONTIN) 300 mg capsule One in the a.m., one in the afternoon, and two at bedtime. 04/20/2021 Active fluticasone propionate (FLONASE) 50 mcg/actuation nasal spray Daily 04/20/2021 Active SUMAtriptan (IMITREX) 25 mg tablet As Directed as needed 07/13/2020 Active cyanocobalamin, vitamin B-12, 1,000 mcg tablet extended release Daily 02/16/2021 Active polycarbophil (FIBERCON) 625 mg tablet Active ibuprofen (ADVIL,MOTRIN) 800 mg tablet Take 800 mg by mouth. Active DULoxetine (CYMBALTA) [address] capsule Taking 30 mg with 60 mg for total of 90 mg daily. 10/14/2021 Active DME CPAPIndications:Obstr uctive Sleep Apnea Adult DME Order 1 each 11 03/16/2022 Active blood sugar diagnostic (glucose blood) strips 1 strip. 04/11/2014 Active busPIRone (BUSPAR) 10 mg tablet Take 10 mg by mouth 2 (two) times a day. 09/20/2022 Active OneTouch Delica Plus Lancet 33 gauge misc 3 TIMES A DAY 07/24/2022 A ctive pantoprazole (PROTONIX) 40 mg EC tablet Take 40 mg by mouth 2 (two) times a day. for 90 days 10/07/2022 Active Active Problems Problem Noted Date [...] Hepatitis C Screening 1965 Mammogram 09/29/2016 09/30/2015 COVID-19 Vaccine ( season) 2023 06/07/2022, 06/24/2021, 09/24/2020, Additional history exists Influenza Vaccine (#1) 2023 , 06/12/2017, 03/23/2016, Additional history exists Depression Screening (Annual PHQ-2) 06/11/2023 Fasting Glucose for Diabetes Screening 11/11/2023 11/10/2020, [...] on patient's age to complete this topic Procedures Procedure Name Priority Date/Time Associated Diagnosis Comments EXTI COMPREHENSIVE METABOLIC PANEL, S/P Routine 11/10/2020 2:29 PM CDT EXTI LIPID PANEL REFLEX TO DIRECT LDL Routine 08/08/2019 10:17 AM PRECIPITATION EQUIPMENT TENDER BI BREAST DIAGNOSTIC BILATERAL WITH TOMOSYNTHESIS Routine 09/30/2015 2:11 PM CDT from Last 3 Months or Most Recently Relevant to Health Maintenance
--- OUTSIDE RECORDS SUMMARY | 2023-09-25 09:54 | XMS_ITS | Clinical Summary ---
Author Name Unknown Organization [facility] Address [address] [place] [address] Care Team Providers Care Line Production Cook Name Role Phone Sudha Greene NP Primary Care Provider Agatha Null DPM, Podiatry /Foot and Ankle Surgery Unavailable [facility] Unavailable Allergies Active Allergy Reactions Criticality Noted Date Comments Azithromycin Other (See Comments) 01/10/2022 Erythromycin Rash Low 04/13/2008 As a child Erythromycin Hives High 06/20/2001 Medications Medication Sig Dispensed Refills Start Date End Date Status blood glucose (ACCU-CHEK JANICE) test stripIndications:Ty pe 2 diabetes, HbA1c goal < 7% (H) 1 strip by In Vitro route 2 times daily 100 strip prn 04/11/2014 Active Additional Information Patient not taking.Reported on 01/03/2021 JAY/ARB NOT PRESCRIBED, INTENTIONAL,Indicat ions:Type 2 diabetes, HbA1c goal < 7% (H),Hypertension goal BP (blood pressure) < 130/80 1 each daily JAY & ARB not prescribed due to not needed 04/29/2014 Active Acetaminophen (TYLENOL PO) Take 1,000 mg by mouth daily as needed for mild pain or fever Active simvastatin (ZOCOR) 20 MG tabletIndications:H yperlipidemia LDL goal <100,Type 2 diabetes mellitus with complication, without long-term current use of insulin (H) Take 1 tab daily 90 tablet 3 08/08/2019 Active fluticasone (FLONASE) 50 MCG/ACT nasal sprayIndications:Al lergic rhinitis, unspecified seasonality, unspecified trigger Noble 1-2 sprays into both nostrils daily 16 [...] 2 TIMES DAILY (WITH MEALS) 360 tablet 06/18/2020 Active SUMAtriptan (IMITREX) 25 MG tabletIndications:M [...] 300 mg by mouth 4 times daily Active pantoprazole (PROTONIX) 20 MG EC tablet Take 20 mg by mouth 2 times daily Active cyanocobalamin (VITAMIN B-12) 1000 MCG tablet Take 1,000 mcg by mouth daily Active oxyCODONE (ROXICODONE) 5 MG tabletIndications:T ype 2 diabetes mellitus with complication, without long-term current use of insulin (H),Peroneal tendon tear, right, sequela,Post-operat jaki state Take 1-2 tablets (5-10 mg) by mouth every 4 hours as needed for moderate to severe pain 30 tablet 02/26/2023 Active senna-docusate (SENOKOT-S/PERICOLA CE) 8.6-50 MG tabletIndications:T ype 2 diabetes mellitus with complication, without long-term current use of insulin (H),Peroneal tendon tear, right, sequela,Post-operat jaki state Take 1-2 tablets by mouth 2 times daily 30 tablet 02/26/2023 Active ondansetron (ZOFRAN ODT) 4 MG ODT tabIndications:Type 2 diabetes mellitus with complication, without long-term current use of insulin (H),Peroneal tendon tear, right, sequela,Post-operat jaki state Take 1 tablet (4 mg) by mouth every 8 hours as needed for nausea 4 tablet 02/26/2023 Active HYDROcodone-acetami nophen (NORCO) 5-325 MG tabletIndications:P ost-operative state Take 1 tablet by mouth every 4 hours as needed for pain 30 tablet 03/06/2023 Active escitalopram (LEXAPRO) 10 MG tablet Take 1 tablet by mouth daily at 2 pm 05/07/2023 Active Hospital, Clinic, or Other Facility [...] use. Address next visit Family history of NE (myocardial infarction) 08/2007 Overview: At early age, father NE at age 40 Resolved Problems Problem Noted [...] Dates Next Due COVID-19 MONOVALENT 12+ (Pfizer) 09/24/2020,0311/2020 Influenza (IIV3) PF 03/09/2011,04/08/2010,2007 Influenza Vaccine >6 months,quad, PF 07/2017,03/23/2016,04/08/2015,2012 Pneumococcal 23 valent 10/06/2014 TD,PF 7+ (Tenivac) 06/16/2005 TDAP Vaccine (Adacel) 03/23/2016 Family History Medical History Relation Comments Lipids Brother 2 Hypertension Brother 3 Diabetes Brother 4 Kidney Disease Brother 5 Cardiovascular Father NE early 40s, almodovar bsequent bipass Diabetes Father Hypertension Father Lipids Father Diabetes Maternal Grandfather Hypertension Maternal Grandfather Lipids Maternal Grandfather Diabetes Maternal Grandmother Hypertension Maternal Grandmother Lipids Maternal Grandmother Arthritis Mother OA Cardiovascular Mother NE age 72 Diabetes Mother Type II Hypertension [...] Answer Date Recorded PHQ-2 Score 0 11/10/2020 [facility] - Occupational [...] Comments Blood Pressure 128/80 05/11/2023 1:07 PM FREIGHT WEIGHER Pulse 87 02/26/2023 3:58 PM CDT Temperature 36.2 ??C (97.2 ??F) 02/26/2023 3:58 PM CD T Respiratory Rate 12 02/26/2023 3:13 PM CDT Oxygen Saturation 95% 02/26/2023 4:00 PM CDT Inhaled Oxygen Concentration - - Weight 87.1 kg (192 lb) 05/11/2023 1:07 PM FREIGHT WEIGHER Height 156 cm (5' 1.42) 02/26/2023 11:19 [...] 05/05/2011, Additional history exists PHQ-9 05/12/2021 11/10/2020, 10/0 11/2019, 08/08/2019, Additional history exists EYE EXAM 05/17/2021 05/17/2020, 02/26/2019 BMP 11/10/2021 11/10/2020, 10/10, 08/08/2019, Additional history exists COVID-19 Vaccine ( season) 2023 06/07/2022, 06/24/2021, 09/24/2020, Additional history exists INFLUENZA VACCINE (#1) 2023 2, 08/08/2019 (Declined), 06/12/2017, Additional history exists RSV [...] Procedure Name Priority Date/Time Associated Diagnosis Comments COMPREHENSIVE METABOLIC PANEL Routine 11/10/2020 2:29 PM CDT Polyarthralgia EYE EXAM - HIM SCAN 05/17/2020 1 2:00 AM FREIGHT WEIGHER HEMOGLOBIN A1C Routine 01/13/2020 8:55 AM CDT Type 2 diabetes mellitus with complication, without long-term current use of insulin (H) FECAL COLORECTAL CANCER SCREEN FIT Routine 01/12/2020 8:00 AM CDT Health care maintenance ALBUMIN RANDOM URINE QUANTITATIVE Routine 08/08/2019 10:17 AM F[facility] WE[facility]HER Routine general medical examination at a health care facility LIPID REFLEX TO DIRECT LDL PANEL Routine 08/08/2019 10:17 AM FREIGHT WEIGHER Routine general medical examination at a [facility] care facility MA SCREENING DIGITAL BILATERAL Routine 09/03/2018 10:13 AM CDT Health care maintenance HIV ANTIGEN ANTIBODY COMBO Routine 04/09/2018 10:09 AM CDT Encounter for screening for HIV HEPATITIS C SCREEN REFLEX TO HCV RNA QUANT AND GENOTYPE Routine 09/25/2016 2:30 PM CDT Need for hepatitis C screening test HPV HIGH RISK TYPES DNA CERVICAL Routine 05/03/2016 12:17 PM FREIGHT WEIGHER Cervical cancer screening PAP IMAGED THIN LAYER SCREEN Routine 05/03/2016 12:00 AM FREIGHT WEIGHER Cervical cancer screening C FOOT EXAM Routine 10/06/2014 9:47 AM CDT Type 2 diabetes, HbA1C goal < 7% (H) from Last 3 Months or Most Recently Relevant to Health Maintenance Results * (ABNORMAL) Comprehensive metabolic panel (11/10/2020 2:29 PM CDT) Sodium 142 133 - 144 mmol/L 11/10/2020 7:51 PM CDT [facility] Potassium 4.0 3.4 - 5.3 mmol/L 11/10/2020 7:51 PM T [facility] Chloride 112(H) 94 - 109 mmol/L 11/10/2020 7:51 PM T [facility] Carbon Dioxide 27 20 - 32 mmol/L 11/10/2020 7:58 PM T [facility] Anion Gap 4 3 - 14 mmol/L 11/10/2020 7:58 PM T [facility] Glucose 96 70 - 99 mg/dL 11/10/2020 7:58 PM T [facility] Urea Nitrogen 14 7 - 30 mg/dL 11/10/2020 7:58 PM T [facility] Creatinine 0.74 0.52 - 1.04 mg/dL 11/10/2020 7:[address] [facility] GFR Estimate >90 >60 mL/min/{1 .73_m2} 11/10/2020 7:[address] [facility] Comment: Non GFR Calc Starting 05/28/2018, serum creatinine based estimated GFR (eGFR) will be calculated using the Chronic Kidney Disease Epidemiology Collaboration (CKD-EPI) equation. GFR Estimate If Black >90 >60 mL/min/{1 .73_m2} 11/10/2020 7:[address] [facility] Comment: GFR Calc Starting 05/28/2018, serum creatinine based estimated GFR (eGFR) will be calculated using the Chronic Kidney Disease Epidemiology Collaboration (CKD-EPI) equation. Calcium 9.3 8.5 - 10.1 mg/dL 11/10/2020 7:58 PM T [facility] Bilirubin Total 0.6 0.2 - 1.3 mg/dL 11/10/2020 8:01 PM T [facility] Albumin 3.6 3.4 - 5.0 g/dL 11/10/2020 8:01 PM T [facility] Protein Total 7.2 6.8 - 8.8 g/dL 11/10/2020 8:01 PM T [facility] Alkaline Phosphatase 143 40 - 150 U/L 11/10/2020 8:01 PM CDT [facility] ALT 23 0 - 50 U/L 11/10/2020 8:01 PM CDT [facility] AST 16 0 - 45 U/L 11/10/2020 8:01 PM CDT [facility] Blood 11/10/2020 2:29 PM CDT 11/10/2020 3:04 PM CDT Kavin Fitzgerald PA-C LAB - BLO OD ORDERABLES [facility] [address] [place] [address] * EYE EXAM - HIM SCAN (05/17/2020 12:00 AM FREIGHT WEIGHER) Pathologist [facility] RETINOPATHY NEGATIVE 05/17/2020 Narrative Lauren Posada - 05/17/2020 12:00 AM F[facility] WEIGHER DIABETIC EYE EXAM [facility] Provider Outside OTHER * (ABNORMAL) A1C FUTURE 1yr (01/13/2020 8:55 AM CDT) [facility] Hemoglobin A1C 6.1(H) 0 - 5.6 % 01/13/2020 9:27 AM CDT [facility] Comment: Normal <5.7% Prediabetes 5.7-6.4% ??Diabetes 6.5% or higher - adopted from ADA consensus guidelines. Blood specimen (specimen) 01/13/2020 8:55 AM CDT 01/13/2020 8:56 AM CDT Noreen Flores APRN DISTRICT GAUGER LAB - BLOOD ORDERABLES [facility] [address] [place] [address] * Fecal colorectal cancer screen (FIT) (01/12/2020 8:00 AM CDT) [facility] Occult Blood Scn FIT Negative NEG^Negati ve 01/18/2020 4:19 PM CDT [facility] Stool specimen (specimen) 01/12/2020 8:00 AM CDT 01/18/2020 1:16 PM CDT Noreen Flores APRN, CNP LAB - STOOLS ORDERABLES [facility] [address] [place] [address] * Albumin Random Urine Quantitative with Creat Ratio (08/08/2019 10:17 AM FRE[facility] WEIGHER) Creatinine Urine 154 mg/dL 08/09/2019 1:54 PM FRE[facility] WEIGHER [facility] Albumin Urine mg/L 11 mg/L 08/09/2019 1:59 PM FREIGHT WEIGHER [facility] Albumin Urine mg/g Cr 7.14 0 - 25 mg/g Cr 08/09/2019 1:59 PM FREIGHT WEIGHER [facility] Urine specimen (specimen) 08/08/2019 10:17 AM F[facility] WE[facility]HER 08/08/2019 10:18 AM [facility] Noreen Flores APRN, CNP LAB - URINE ORDERABLES [facility] [address] [place] [address] * (ABNORMAL) Lipid panel reflex to direct LDL Fasting (08/08/2019 10:17 AM FREIGHT WEIGHER) Cholesterol 180 <200 mg/dL 08/08/2019 7:47 PM [facility] Triglycerides 153(H) <150 mg/dL 08/08/2019 7:47 PM [facility] Comment: Borderline high: ??150-199 mg/dl High: ? 200-499 mg/dl Very high: ? >499 mg/dl HDL Cholesterol 46(L) >49 mg/dL 0 7:47 PM FRE[facility] WEIGHER [facility] LDL Cholesterol Calculated 103(H) <100 mg/dL 08/08/2019 7:47 PM [facility] Comment: Above desirable: ??100-129 mg/dl Borderline High: ??130-159 mg/dL High: ? 160-189 mg/dL Very high: ? >189 mg/dl Non HDL Cholesterol 134(H) <130 mg/dL 08/08/2019 7:47 PM [facility] Comment: Above Desirable: ??130-159 mg/dl Borderline high: ??160-189 mg/dl High: ? 190-219 mg/dl Very high: ? >219 mg/dl Blood specimen (specimen) 08/08/2019 10:17 AM [facility] WEIGHER 08/08/2019 10:18 AM [facility] WE[facility]HER Noreen Flores APRN DISTRICT GAUGER LAB - BLOOD ORDERABLES Performing Organization Address City/State/[facility] Co de Phone Number [facility] [address] [place] [address], [facility] [phone] * *MA Screening Digital Bilateral (09/03/2018 10:13 AM CDT) Anatomical Region Laterality Modality Breast Bilateral Mammography Impressions 09/03/2018 10:30 AM CDT IMPRESSION: BI-RADS CATEGORY: 1 - ??Negative. RECOMMENDED FOLLOW-UP: Annual Mammography. PANCHITO DESIR MD Narrative 09/03/2018 10:30 AM CDT SCREENING MAMMOGRAM, BILATERAL, DIGITAL w/CAD, 09/03/2018 10:29 AM BREAST DENSITY: Scattered fibroglandular densities. CLINICAL INFORMATION: Breast screening. ??[facility], 09/30/15, 04/16/15, 05/27/13 FINDINGS: Negative. Stable exam. Screening exam in one year recommended. Procedure Note Panchito Desir MD - 09/03/2018 SCREENING MAMMOGRAM, BILATERAL, DIGITAL w/CAD, 09/03/2018 10:29 AM BREAST DENSITY: Scattered fibroglandular densities. CLINICAL INFORMATION: Breast screening. [facility], 09/30/15, 04/16/15, 05/27/13 FINDINGS: Negative. Stable exam. Screening exam in one year recommended. IMPRESSION: BI-RADS CATEGORY: 1 - Negative. RECOMMENDED FOLLOW-UP: Annual Mammography. PANCHITO DESIR MD Noreen Flores APRN, CNP IMG MAMMOGRAPHY ORDERABLES * HIV Antigen Antibody Combo (04/09/2018 10:09 AM CDT) HIV Antigen Antibody Combo Nonreactive NR^Nonrea ctive 04/10/2018 7:29 AM CDT [facility] Comment:HIV-1 p24 Ag & HIV-1 /HIV-2 Ab Not Detected Blood specimen (specimen) 04/09/2018 10:09 AM CDT 04/09/2018 10:15 AM CDT Noreen Flores APRN, CNP LAB - BLOOD ORDERABLES [facility] [address] * Hepatitis C Screen Reflex to HCV RNA Quant and Genotype (09/25/2016 2:30 PM CDT) Pathologist [facility] [place] Hepatitis C Antibody Nonreactive Assay performance characteristics have not been established for newborns, infants, and children NR [facility] Blood specimen (specimen) 09/25/2016 2:30 PM CDT 09/26/2016 11:29 AM CDT Vanda Borja MD LAB - BLOOD ORDER ILDEFONSO [facility] [address] [place] [address] * HPV High Risk Types DNA Cervical (05/03/2016 12:17 PM FRE[facility] WEIGHER) HPV 16 DNA Negative [facility]G [facility] HPV 18 DNA Negative NEG [facility] Other HR HPV Negative NEG [facility] Final Diagnosis This patient's sample is negative for HPV DNA. (Note) METHODOLOGY: ??The Alaina kandy 4800 system uses automated extraction, simultaneous amplification of HPV (L1 region) and beta-globin, followed by ??real time detection of fluorescent labeled HPV and beta globin using specific oligonucleotide probes . The test specifically identifies types HPV 16 DNA and HPV 18 DNA while concurrently detecting the rest of the high risk types (31, 33, 35, 39, 45, 51, 52, 56, 58, 59, 66 or 68). COMMENTS: ??This test is not intended for use as a screening device for women under age 30 with normal cervical cytology. ??Results should be correlated with cytologic and histologic findings. Close clinical followup is recommended. This test was developed and its performance characteristics determined by the [facility], Molecular Diagnostics Laboratory. It has not been cleared or approved by the FDA. The laboratory is regulated under CLIA as qualified to perform high-complexity testing. This test is used for clinical purposes. It should not be regarded as investigational or for research. [facility] Specimen Description Cervical Cells [id number] [facility] Cervical Cells 05/03/2016 12 :17 PM FRE[facility] WEIGHER 05/03/2016 12:20 PM [facility]HER Vanda Borja MD LAB - BLOOD ORDER ILDEFONSO [facility] [address] [place] [address] * Pap imaged thin layer screen with HPV - recommended age 30 - 65 years (select HPV order below) (05/03/2016 12:00 AM FRE[facility] WEIGHER) PAP RAMSEY Wren Report Patient Name: MEGAN WONG MR#: [id number] Specimen #: [id number] Collected: 05/03/2016 Received: 05/05/2016 Reported: 05/09/2016 08:26 Ordering Phy(s): VANDA BORJA SPECIMEN/STAIN PROCESS: Pap imaged thin layer prep screening (Surepath, FocalPoint with guided screening) ? Pap-Cyto x 1, HPV ordered x 1 SOURCE: Cervical, endocervical Pap imaged thin layer prep screening (Surepath, FocalPoint with guided screening) SPECIMEN ADEQUACY: Satisfactory for evaluation. -Transformation zone component present. CYTOLOGIC INTERPRETATION: Negative for Intraepithelial Lesion or Malignancy Electronically signed out by: TARIQ Wick (ASCP) Processed and screened at [facility], [facility] CLINICAL HISTORY: LMP: 10/30/11 Post Menopausal, Previous normal pap Date of Last Pap: 10/06/14, Papanicolaou Test Limitations: ??Cervical cytology is a screening test with limited sensitivity; regular screening is critical for cancer prevention; Pap tests are primarily effective for the diagnosis/preventi on of squamous cell carcinoma, not adenocarcinomas or other cancers. TESTING LAB LOCATION: [address] ??[id number] COLLECTION SITE: Client: ??[facility] Location: [facility] (R) COPATH Cytologic material (specimen) 05/03/2016 05/05/2016 10:22 AM FRE[facility] WEIGHER Vanda Borja MD LAB - OPTIME CLIN ICAL SPECIMEN COPATH from Last 3 Months or Most Recently Relevant to Health Maintenance Care Teams Line Production Cook Relationship Specialty Start Date End Date Sudha Greene NP [facility] [address] [place] [address] PCP - General 11/01/22 Agatha Null, MARÍA, Podiatry/Foot and Ankle Surgery [address] [address] Assigned Musculoskeletal Provider 11/04/22 Clinic - [facility] [address] [address] Assigned PCP 07/05/23
--- OUTSIDE RECORDS SUMMARY | 2023-09-25 09:54 | XMS_ITS | Encounter Summary ---
Author Name Unknown Organization [place] Address [address] [place] [address] Care Team Providers Care Letter Of Credit Clerk Name Role Phone Noreen Flores APRN MAGNETIC PROSPECTOR Unavailable Sudha Greene NP Primary Care Provider Agatha Null DPM, Podiatry /Foot and Ankle Surgery Unavailable Aly - Nita Pringle [facility] Unavailable Encounter Details Date Type Department Care Team (Late st Contact Info) Description 01/04/2023 [facility] Medical Advice [facility] [address] [place] [address] Tony Orozco Social History Tobacco [...] Answer Date Recorded PHQ-2 Score 0 11/10/2020 [place] [facility] Occupat ional Health - Occupational [...] documented as of this encounter Care Teams Letter Of Credit Clerk Relationship Specialty Start Date End Date Sudha Greene NP [address] [address] PCP - General 11/01/22 Noreen Flores APRN MAGNETIC PROSPECTOR [facility] DAVID GRESHAM [address] Assigned PCP 08/05/22 03/16/23 Agatha Null DPM, Podiatry/Foot and Ankle Surgery [address] [place] [address] Assigned Musculoskeletal Provider 11/04/22 Clinic - Nita Pringle [facility] [address] [place] [address] DAVID PRINGLE [address] Assigned PCP 07/05/23 documented as of this encounter
--- OUTSIDE RECORDS SUMMARY | 2023-09-25 09:54 | XMS_ITS | Encounter Summary ---
Author Name Unknown Organization [place] Address [address] [place] [address] Care Team Providers Care Editor Farm Journal Name Role Phone Noreen Flores APRN DANCE DIRECTOR Unavailable Sudha Greene NP Primary Care Provider Agatha Null DPM, Podiatry /Foot and Ankle Surgery Unavailable Aly - Nita Pringle [facility] Unavailable Reason for Visit * Reason Onset Date Comments Forms 02/02/2023 Encounter Details Date Type Department Care Team (Late st Contact Info) Description 02/02/2023 [facility] [address] [facility] [address] [place], [place] [id number] Agatha Null DPM, Podiatry/Foot and Ankle Surgery [address] [place] [address] Forms Social History Tobacco Use [...] Answer Date Recorded PHQ-2 Score 0 11/10/2020 [facility] [place] of Occupat ional Health - Occupational Stress [...] documented as of this encounter Care Teams Editor Farm Journal Relationship Specialty Start Date End Date Sudha Greene NP [address] [address] PCP - General 11/01/22 Noreen Flores APRN CNP [address] [facility] DAVID GRESHAM [address] Assigned PCP 08/05/22 03/16/23 Agatha Null DPM, Podiatry/Foot and Ankle Surgery [address] [place] [address] [place], [place] [address] [address] Assigned Musculoskeletal Provider 11/04/22 [facility] Nita Pringle [facility] [address] [facility] DAVID PRINGLE [address] Assigned PCP 07/05/23 documented as of this encounter
--- OUTSIDE RECORDS SUMMARY | 2023-09-25 09:54 | XMS_ITS | Referral Summary ---
Author Name Unknown Organization [facility] Address [address] [place] [address] Care Team Providers Care Center Sales And Service Associate Name Role Phone Unavailable Primary Care Provider Unavailabl e Source Comments Patient records contain information from all sites at [facility]. For routine questions regarding patient records, call [phone] during business hours, M-F 8:00 AM - 5:00 PM Central Time. Record requests for emergency care only can be directed to [phone] at any time.[facility] Allergies Active Allergy Reactions Criticality Noted [...] CDT Plan of Treatment Not on file Procedures Procedure Name Priority Date/Time Associated Diagnosis Comments EXTI COMPREHENSIVE METABOLIC PANEL, S/P Routine 11/10/2020 2:29 PM CDT EXTI LIPID PANEL REFLEX TO DIRECT LDL Routine 08/08/2019 10:17 AM SALESPERSON MEN'S AND BOYS' CLOTHING BI BREAST DIAGNOSTIC BILATERAL WITH TOMOSYNTHESIS Routine 09/30/2015 2:11 PM CDT from Last 3 Months or Most Recently Relevant to Health Maintenance [facility] DAVID Carl [address]
--- OUTSIDE RECORDS SUMMARY | 2023-09-25 09:54 | XMS_ITS | Clinical Summary ---
Author Name Unknown Organization [employer] Address [place], [place] [address] Care Team Providers Care Software Quality Engineer Name Role Phone Sudha Greene NP Primary Care Provider [phone] Allergies Active Allergy Reactions Criticality Noted Date [...] CDT Oxygen Saturation 97% 08/12/2020 6:13 PM SHIPPING SUPPORT CLERK Inhaled Oxygen Concentration - - Weight 79.4 [...] Additional history exists Influenza for age 50-64 02/10/2024 Pap test for age 21-65 10/14/2024 10/14/2021, 2021 Pneumococcal series for age 6-64 Aged Out No longer eligible based on patient's age to complete this topic Procedures Procedure Name Priority Date/Time Associated Diagnosis Comments HPV THIN PREP Routine 10/14/2021 10:54 AM CDT from Last 3 Months or Most Recently Relevant to Health Maintenance Results * HPV HIGH RISK (10/14/2021 10:54 AM CDT) TYPE 16 Negative Negative 11/04/2021 10:35 AM CDT [facility] TYPE 18 Negative Negative 11/04/2021 10:35 AM CDT [facility] OTHER HIGH RISK TYPES Negative Negative 11/04/2021 10:35 AM CDT [facility] Tissue (Other) Client Collect / Unknown 10/14/2021 10:54 AM CDT 11/02/2021 5:19 PM CDT Narrative [facility] - 11/04/2021 10:35 AM CDT HPV types 16, 18, 31, 33, 35, 39, 45, 51, 52, 56, 58, 59, 66 and 68 DNA were undetectable or below the pre-set threshold. Methodology: Alaina Basilio 4800 HPV Test Doctor Unknown [facility] [address] [place] [address], from Last 3 Months or Most Recently Relevant to Health Maintenance Care Teams Software Quality Engineer Relationship Specialty Start Date End Date Sudha Greene NP [address] [place] [address] DustinDAVID [address] (work) PCP - General Emergency Medicine 03/27/22
--- OUTSIDE RECORDS SUMMARY | 2023-09-25 09:54 | XMS_ITS | Encounter Summary ---
Author Name Unknown Organization [place] Address [address] [place] [address] Care Team Providers Care Violin Restorer Name Role Phone Noreen Flores APRN TYPESETTING MACHINE OPERATOR/TENDER Unavailable Sudha Greene NP Primary Care Provider Agatha Null DPM, Podiatry /Foot and Ankle Surgery Unavailable Aly - Nita Pringle [facility] Unavailable Encounter Details Date Type Department Care Team (Late st Contact Info) Description 01/12/2023 [facility] Adv[facility] [address] [place] [address] Agatha Null DPM, Podiatry/Foot and Ankle Surgery [address] [place] [address] Chronic pain of right ankle (Primary Dx); [...] Friends and Family Patient declined 08/08/2019 Attends Nondenominational Services Patient declined 07/13 Active Member of [...] Answer Date Recorded PHQ-2 Score 0 11/10/2020 [facility] [place] of Occupat ional Health - Occupational Stress [...] for providerreview/ signature. Haily Gandhi MSA, ATC Pipeline Construction Inspector documented in this encounter Plan of Treatment Not on file documented as of this encounter Visit Diagnoses Diagnosis Chronic pain of right ankle- Primary Peroneal tendon tear, right, subsequent encounter documented in this encounter Additional Health Concerns Assessment Noted Time PHQ-9 Depression Total Score: 7 11/11/19 21 1:31 PM CDT documented as of this encounter Care Teams Violin Restorer Relationship Specialty Start Date End Date Sudha Greene NP [address] [address] PCP - General 11/01/22 Noreen Flores APRN CNP [address] [place] [address] DAVID GRESHAM [address] Assigned PCP 08/05/22 03/16/23 Agatha Null DPM, Podiatry/Foot and Ankle Surgery [address] [place] [address] Assigned Musculoskeletal Provider 11/04/22 [facility] [place] [facility] [address] [place] [address] DAVID PRINGLE [address] Assigned PCP 07/05/23 documented as of this encounter
--- OUTSIDE RECORDS SUMMARY | 2023-09-25 09:54 | XMS_ITS | Encounter Summary ---
Author Name Unknown Organization [place] Address [address] [place] [address] Care Team Providers Care Driving Teacher Name Role Phone Noreen Flores APRN DIRECTOR OF THE BIOPHYSICS FACILITY Unavailable Noreen Flores APRN DIRECTOR OF THE BIOPHYSICS FACILITY Primary Car e Provider Marcelo Artis PA-C Unavailable [phone] Noreen Flores APRN DIRECTOR OF THE BIOPHYSICS FACILITY Unavailable Sudha Greene NP Primary Care Provider Agatha Null DPM, Podiatry /Foot and Ankle Surgery Unavailable Clinic - Nita Pringle [facility] Unavailable Encounter Details Date Type Department Care Team (Late st Contact Info) Description 07/25/2021 [facility] Medical Advice [facility] [address] [facility] [address] [place] [address] Christi Panda MA Social History Tobacco [...] Friends and Family Patient declined 08/08/2019 Attends Roman [employer] Services Patient declined 07/13 Active Member of [...] Date Recorded PHQ-2 Score 0 11/10/2020 [facility] [place] of Occupat ional Health - Occupational Stress [...] documented as of this encounter Care Teams Driving Teacher Relationship Specialty Start Date End Date Noreen Flores APRN DIRECTOR OF THE BIOPHYSICS FACILITY [address] [facility] [address] [place], DAV[place] [address] PCP - General Nurse Practitioner 01/09/19 12/12/21 Sudha Greene NP [address] [address] PCP - General 11/01/22 Noreen Flores APRN DIRECTOR OF THE BIOPHYSICS FACILITY [address] [place] [address] DAVID GRESHAM [address] Assigned PCP 06/16/18 05/26/22 Marcelo Artis PA-C [address] [place] [address] Assigned Musculoskeletal Provider 08/25/20 08/20/21 Noreen Flores APRN DIRECTOR OF THE BIOPHYSICS FACILITY [address] [place] [address] DAV[place] GRESHAM [address] Assigned PCP 08/05/22 03/16/23 Agatha Null DPM, Podiatry/Foot and Ankle Surgery [address] [place] [address] [address] [place] [address] Assigned Musculoskeletal Provider 11/04/22 Clinic - Nita Pringle [address] [place] [address] Assigned PCP 07/05/23 documented as of this encounter
--- OUTSIDE RECORDS SUMMARY | 2023-09-25 09:54 | XMS_ITS | Referral Summary ---
Author Name Unknown Organization [place] Address [address] [place] [address] Care Team Providers Care Corner Cutter Name Role Phone Sudha Greene NP Primary Care Provider [phone] Agatha Null DPM, Podiatry /Foot and Ankle Surgery Unavailable [facility] [place] [facility] Unavailable Allergies Active Allergy Reactions Criticality Noted [...] sprayIndications:Al lergic rhinitis, unspecified seasonality, unspecified trigger [place] 1-2 sprays into both nostrils daily 16 [...] use. Address next visit Family history of MT (myocardial infarction) 08/2007 Overview: At early age, father MT at age 40 Resolved Problems Problem Noted [...] Friends and Family Patient declined 08/08/2019 Attends Rastafarian Services Patient declined 07/13 Active Member of [...] Answer Date Recorded PHQ-2 Score 0 11/10/2020 [facility] [place] of Occupat ional Health - Occupational Stress [...] Comments Blood Pressure 128/80 05/11/2023 1:07 PM SHIPPING MANAGER Pulse 87 02/26/2023 3:58 PM CDT Temperature 36.2 ??C (97.2 ??F) 02/26/2023 3:58 PM CD T Respiratory Rate 12 02/26/2023 3:13 PM CDT Oxygen Saturation 95% 02/26/2023 4:00 PM CDT Inhaled Oxygen Concentration - - Weight 87.1 kg (192 lb) 05/11/2023 1:07 PM SHIPPING MANAGER Height 156 cm (5' 1.42) 02/26/2023 11:19 AM CDT Body Mass Index 35.79 02/26/2023 11:19 AM CDT Plan of Treatment Not on file Procedures Procedure Name Priority Date/Time Associated Diagnosis Comments COMPREHENSIVE METABOLIC PANEL Routine 11/10/2020 2:29 PM CDT Polyarthralgia EYE EXAM - HIM SCAN 05/17/2020 1 2:00 AM SHIPPING MANAGER HEMOGLOBIN A1C Routine 01/13/2020 8:55 AM CDT Type 2 diabetes mellitus with complication, without long-term current use of insulin (H) FECAL COLORECTAL CANCER SCREEN FIT Routine 01/12/2020 8:00 AM CDT Health care maintenance ALBUMIN RANDOM URINE QUANTITATIVE Routine 08/08/2019 10:17 AM SHIPPING MANAGER Routine general medical examination at a health care facility LIPID REFLEX TO DIRECT LDL PANEL Routine 08/08/2019 10:17 AM SHIPPING MANAGER Routine general medical examination at a health care facility MA SCREENING DIGITAL BILATERAL Routine 09/03/2018 10:13 AM CDT Health care maintenance HIV ANTIGEN ANTIBODY COMBO Routine 04/09/2018 10:09 AM CDT Encounter for screening for HIV HEPATITIS C SCREEN REFLEX TO HCV RNA QUANT AND GENOTYPE Routine 09/25/2016 2:30 PM CDT Need for hepatitis C screening test HPV HIGH RISK TYPES DNA CERVICAL Routine 05/03/2016 12:17 PM SHIPPING MANAGER Cervical cancer screening PAP IMAGED THIN LAYER SCREEN Routine 05/03/2016 12:00 AM SHIPPING MANAGER Cervical cancer screening C FOOT EXAM Routine 10/06/2014 9:47 AM CDT Type 2 diabetes, HbA1C goal < 7% (H) from Last 3 Months or Most Recently Relevant to Health Maintenance Results * (ABNORMAL) Comprehensive metabolic panel (11/10/2020 2:29 PM CDT) Sodium 142 133 - 144 mmol/L 11/10/2020 7:51 PM CDT [facility] Potassium 4.0 3.4 - 5.3 mmol/L 11/10/2020 7:51 PM CDT [facility] Chloride 112(H) 94 - 109 mmol/L 11/10/2020 7:51 PM CDT [facility] Carbon Dioxide 27 20 - 32 mmol/L 11/10/2020 7:58 PM CDT [facility] Anion Gap 4 3 - 14 mmol/L 11/10/2020 7:58 PM CDT [facility] Glucose 96 70 - 99 mg/dL 11/10/2020 7:58 PM CDT [facility] Urea Nitrogen 14 7 - 30 mg/dL 11/10/2020 7:58 PM CDT [facility] Creatinine 0.74 0.52 - 1.04 mg/dL 11/10/2020 7:58 PM T [facility] GFR Estimate >90 >60 mL/min/{1 .73_m2} 11/10/2020 7:58 PM CDT [facility] Comment: Non GFR Calc Starting 05/28/2018, serum creatinine based estimated GFR (eGFR) will be calculated using the Chronic Kidney Disease Epidemiology Collaboration (CKD-EPI) equation. GFR Estimate If Black >90 >60 mL/min/{1 .73_m2} 11/10/2020 7:58 PM T [facility] Comment: GFR Calc Starting 05/28/2018, serum creatinine based estimated GFR (eGFR) will be calculated using the Chronic Kidney Disease Epidemiology Collaboration (CKD-EPI) equation. Calcium 9.3 8.5 - 10.1 mg/dL 11/10/2020 7:58 PM CDT [facility] Bilirubin Total 0.6 0.2 - 1.3 mg/dL 11/10/2020 8:01 PM CDT [facility] Albumin 3.6 3.4 - 5.0 g/dL 11/10/2020 8:01 PM CDT [facility] Protein Total 7.2 6.8 - 8.8 g/dL 11/10/2020 8:01 PM CDT [facility] Alkaline Phosphatase 143 40 - 150 U/L 11/10/2020 8:01 PM CDT [facility] ALT 23 0 - 50 U/L 11/10/2020 8:01 PM CDT [facility] AST 16 0 - 45 U/L 11/10/2020 8:01 PM CDT [facility] Blood 11/10/2020 2:29 PM CDT 11/10/2020 3:04 PM CDT Kavin Fitzgerald PA-C LAB - BLO OD ORDERABLES Performing Organization Address City/[facility]/ZIP Co de Phone Number [facility] [address] [place] [address] * EYE EXAM - HIM SCAN (05/17/2020 12:00 AM SHIPPING MANAGER) RETINOPATHY NEGATIVE 05/17/2020 Narrative Lauren Posada - 05/17/2020 12:00 AM SHIPPING MANAGER DIABETIC EYE EXAM [facility] Provider Outside OTHER * (ABNORMAL) A1C FUTURE 1yr (01/13/2020 8:55 AM CDT) Hemoglobin A1C 6.1(H) 0 - 5.6 % 01/13/2020 9:27 AM CDT [facility] Comment: Normal <5.7% Prediabetes 5.7-6.4% ??Diabetes 6.5% or higher - adopted from ADA consensus guidelines. Blood specimen (specimen) 01/13/2020 8:55 AM CDT 01/13/2020 8:56 AM CDT Noreen Flores APRN MEDICAL GENETICIST LAB - BLOOD ORDERABLES [facility] [address] [place] [address] * Fecal colorectal cancer screen (FIT) (01/12/2020 8:00 AM CDT) Occult Blood Scn FIT Negative NEG^Negati ve 01/18/2020 4:19 PM CDT [facility] Stool specimen (specimen) 01/12/2020 8:00 AM CDT 01/18/2020 1:16 PM CDT Noreen Flores APRN, CNP LAB - STOOLS ORDERABLES [facility] [address] [place] [address] * Albumin Random Urine Quantitative with Creat Ratio (08/08/2019 10:17 AM SHIPPING MANAGER) Creatinine Urine 154 mg/dL 08/09/2019 1:54 PM SHIPPING MANAGER [facility] Albumin Urine mg/L 11 mg/L 08/09/2019 1:59 PM SHIPPING MANAGER [facility] Albumin Urine mg/g Cr 7.14 0 - 25 mg/g Cr 08/09/2019 1:59 PM SHIPPING MANAGER [facility] Urine specimen (specimen) 08/08/2019 10:17 AM SHIPPING MANAGER 08/08/2019 10:18 AM SHIPPING MANAGER Noreen Flores APRN, CNP LAB - URINE ORDERABLES Performing Organization Address City/[facility]/ZIP Co de Phone Number [facility] [address] [place] [address] * (ABNORMAL) Lipid panel reflex to direct LDL Fasting (08/08/2019 10:17 AM SHIPPING MANAGER) Cholesterol 180 <200 mg/dL 08/08/2019 7:47 PM SHIPPING MANAGER [facility] Triglycerides 153(H) <150 mg/dL 08/08/2019 7:47 PM SHIPPING MANAGER [facility] Comment: Borderline high: ??150-199 mg/dl High: ? 200-499 mg/dl Very high: ? >499 mg/dl HDL Cholesterol 46(L) >49 mg/dL 0 7:47 PM [facility] LDL Cholesterol Calculated 103(H) <100 mg/dL 08/08/2019 7:47 PM [facility] Comment: Above desirable: ??100-129 mg/dl Borderline High: ??130-159 mg/dL High: ? 160-189 mg/dL Very high: ? >189 mg/dl Non HDL Cholesterol 134(H) <130 mg/dL 08/08/2019 7:47 PM [facility] Comment: Above Desirable: ??130-159 mg/dl Borderline high: ??160-189 mg/dl High: ? 190-219 mg/dl Very high: ? >219 mg/dl Blood specimen (specimen) 08/08/2019 10:17 AM SHIPPING MANAGER 08/08/2019 10:18 AM SHIPPING MANAGER Noreen Flores APRN MEDICAL GENETICIST LAB - BLOOD ORDERABLES Performing Organization Address City/State/[facility] Co de Phone Number [facility] [address] [place] [address], [facility] [phone] * *MA Screening Digital Bilateral (09/03/2018 10:13 AM CDT) Anatomical Region Laterality Modality Breast Bilateral Mammography Impressions 09/03/2018 10:30 AM CDT IMPRESSION: BI-RADS CATEGORY: 1 - ??Negative. RECOMMENDED FOLLOW-UP: Annual Mammography. PANCHITO DESIR MD Narrative 09/03/2018 10:30 AM CDT SCREENING MAMMOGRAM, BILATERAL, DIGITAL w/CAD, 09/03/2018 10:29 AM BREAST DENSITY: Scattered fibroglandular densities. CLINICAL INFORMATION: Breast screening. ??Health care maintenance, 09/30/15, 04/16/15, 05/27/13 FINDINGS: Negative. Stable exam. Screening exam in one year recommended. Procedure Note Panchito Desir MD - 09/03/2018 SCREENING MAMMOGRAM, BILATERAL, DIGITAL w/CAD, 09/03/2018 10:29 AM BREAST DENSITY: Scattered fibroglandular densities. CLINICAL INFORMATION: Breast screening. Health care maintenance, 09/30/15, 04/16/15, 05/27/13 FINDINGS: Negative. Stable exam. Screening exam in one year recommended. IMPRESSION: BI-RADS CATEGORY: 1 - Negative. RECOMMENDED FOLLOW-UP: Annual Mammography. PANCHITO DESIR MD Noreen Flores APRN, CNP IMG MAMMOGRAPHY ORDERABLES * HIV Antigen Antibody Combo (04/09/2018 10:09 AM CDT) HIV Antigen Antibody Combo Nonreactive NR^Nonrea ctive 04/10/2018 7:29 AM CDT [facility] Comment:HIV-1 p24 Ag & HIV-1 /HIV-2 Ab Not Detected Blood specimen (specimen) 04/09/2018 10:09 AM CDT 04/09/2018 10:15 AM CDT Noreen Flores APRN, CNP LAB - BLOOD ORDERABLES [facility] [address] * Hepatitis C Screen Reflex to HCV RNA Quant and Genotype (09/25/2016 2:30 PM CDT) Pathologist [facility] Hepatitis C Antibody Nonreactive Assay performance characteristics have not been established for newborns, infants, and children NR [facility] Blood specimen (specimen) 09/25/2016 2:30 PM CDT 09/26/2016 11:29 AM CDT Vanda Borja MD LAB - BLOOD ORDER ILDEFONSO [facility] [address] [place] [address] * HPV High Risk Types DNA Cervical (05/03/2016 12:17 PM SHIPPING MANAGER) HPV 16 DNA Negative NEG [facility] HPV 18 DNA Negative NEG [facility] Other HR HPV Negative NEG [facility] Final Diagnosis This patient's sample is negative [...] and its performance characteristics determined by the [facility], [facility]ostics Laboratory. It has not been cleared or approved by the FDA. The laboratory is regulated under CLIA as qualified to perform high-complexity testing. This test is used for clinical purposes. It should not be regarded as investigational or for research. [facility] Specimen Description Cervical Cells [id number] [facility] Cervical Cells 05/03/2016 12 :17 PM SHIPPING MANAGER 05/03/2016 12:20 PM SHIPPING MANAGER Vanda Borja MD LAB - BLOOD ORDER ILDEFONSO [facility] [address] [place] [address] * Pap imaged thin layer screen with HPV - recommended age 30 - 65 years (select HPV order below) (05/03/2016 12:00 AM SHIPPING MANAGER) PAP RAMSEY Wren Report Patient Name: MEGAN CHOI MR#: [id number] Specimen #: [id number] Collected: 05/03/2016 Received: 05/05/2016 Reported: 05/09/2016 08:26 [...] TARIQ Wick (ASCP) Processed and screened at [facility], [facility] CLINICAL HISTORY: LMP: 10/30/11 Post Menopausal, Previous normal pap Date of Last Pap: 10/06/14, Papanicolaou Test Limitations: ??Cervical cytology is a screening test with limited sensitivity; regular screening is critical for cancer prevention; Pap tests are primarily effective for the diagnosis/preventi on of squamous cell carcinoma, not adenocarcinomas or other cancers. TESTING LAB LOCATION: [address] ??[address] COLLECTION SITE: Client: ??[facility] Location: [facility] (R) COPATH Cytologic material (specimen) 05/03/2016 05/05/2016 10:22 AM SHIPPING MANAGER Vanda Borja MD LAB - OPTIME CLIN ICAL SPECIMEN COPATH from Last 3 Months or Most Recently Relevant to Health Maintenance Care Teams Corner Cutter Relationship Specialty Start Date End Date Sudha Greene NP [facility] - [address] [address] PCP - General 11/01/22 Agatha Null, MARÍA, Podiatry/Foot and Ankle Surgery [address] [place] [address] Assigned Musculoskeletal Provider 11/04/22 Clinic [place] [address] [id number] Assigned PCP 07/05/23
--- OUTSIDE RECORDS SUMMARY | 2023-09-25 09:55 | XMS_ITS | Encounter Summary ---
Author Name Unknown Organization [place] Address [address] [place] [address] Care Team Providers Care Dry Cell Battery Assembler Name Role Phone Noreen Flores APRN ARCADE ATTENDANT Unavailable Noreen Flores APRN ARCADE ATTENDANT Primary Car e Provider Kalyan Galvan Unavailable Unavailable Lashae Trevino [facility] Unavailable Eduardo Sharma MD Unavailable Rios Monteiro MD Unavailable [phone] Marcelo Artis PA-C Unavailable Rodrigo Man PA-C Unavailable [phone] Noreen Flores APRN, CNP Unavailable Sudha Greene NP Primary Care Provider Agatha Null DPM, Podiatry /Foot and Ankle Surgery Unavailable Clinic - [facility] Unavailable Reason for Visit * Reason Onset Date Comments Refill Request 06/14/2020 blood glucose mo nitoring (ONE TOUCH DELICA) lancets Refill Request 06/14/2020 blood glucose (A CCU-CHEK JANICE) test strip Encounter Details Date Type Department Care Team (Late st Contact Info) Description 06/14/[address] [facility] [address] [facility] [address] [place] [phone] Jeana-Jd Noreen Sudha, OCCUPATIONAL THERAPY DEPARTMENT CHAIR ARCADE ATTENDANT [address] [facility] [place] [address] Refill Request (blood glucose monitoring (ONE TOUCH [...] Friends and Family Patient declined 08/08/2019 Attends Alevism Services Patient declined 07/13 Active Member of [...] Answer Date Recorded PHQ-2 Score 2 07/25/2018 [facility] [place] of Occupat ional Health - Occupational Stress [...] Christy Pelayo RN - 06/16/2020 11:04 AM CLASSIFIED ADVERTISING MANAGER Prescription approved per [facility] Refill Protocol. Christy Pelayo RN Flex SIFIED ADVERTISING MANAGER * Telephone Encounter - Candy Wilda - 06/14/2020 3:55 PM CST Request from pharmacy states: ONE TOUCH VERIO TEST STRIPS and ONE TOUCH 30G DELICA LNC, SIFIED ADVERTISING MANAGER documented in this encounter Plan of [...] as of this encounter Care Teams Dry Cell Battery Assembler Relationship Specialty Start Date End Date Jeana-Noreen Miles APRN ARCADE ATTENDANT [address] [place] [address] [place] [address] PCP - General Nurse Practitioner 01/09/19 12/12/21 Sudha Greene NP [facility] & [address] [address] PCP - General 11/01/22 Noreen Flores APRN ARCADE ATTENDANT [address] [place] [address] [place] [address] Assigned PCP 06/16/18 05/26/22 Kalyan Galvan Personal Advocate & Liaison (PAL) 08/08/19 04/26/21 [facility] [address] [place] [address] [place] [address] Pharmacist Pharmacist 10/14/19 12/01/20 Eduardo Sharma MD [address] [place] [address] [place] [address] Assigned Sleep Provider 04/02/2005/07 [place] [address] [address] [place] [address] [place] [address] Assigned Musculoskeletal Provider 04/02/20 08/24/20 Marcelo Artis PA-C [address] [place] [address] [place] [address] Assigned Musculoskeletal Provider 08/25/20 08/20/21 Rodrigo Man PA-C [address] [place] [address] [place] [address] Assigned Surgical Provider 08/25/20 11/27/20 Noreen Flores APRN ARCADE ATTENDANT [address] [place] [address] [place] [address] Assigned PCP 08/05/22 03/16/23 Agatha Null, MARÍA, Podiatry/Foot and Ankle Surgery [address] [place] [address] Assigned Musculoskeletal Provider 11/04/22 [facility] [address] [id number] Assigned PCP 07/05/23 documented as of this encounter
--- OUTSIDE RECORDS SUMMARY | 2023-09-25 09:55 | XMS_ITS | Encounter Summary ---
Author Name Unknown Organization [place] Address [address] [place] [address] Care Team Providers Care Rides Attendant Name Role Phone Noreen Flores APRN IMAGE ARCHIVIST Unavailable Noreen Flores APRN IMAGE ARCHIVIST Primary Car e Provider Kalyan Galvan Unavailable Unavailable Lashae Trevino [facility] Unavailable Eduardo Sharma MD Unavailable Rios Monteiro MD Unavailable Marcelo Artis PA-C Unavailable Rodrigo Man PA-C Unavailable [phone] Noreen Flores APRN IMAGE ARCHIVIST Unavailable Sudha Greene NP Primary Care Provider [phone] Agatha Null DPM, Podiatry /Foot and Ankle Surgery Unavailable Clinic - [facility] Unavailable Encounter Details Date Type Department Care Team (Late st Contact Info) Description 12/23/2019 Myra Moya [facility] [place] [address] [place] [address] Noreen Flores APRN CNP [address] [facility] [place] [id number] Chronic seasonal allergic rhinitis Social History Tobacco [...] Answer Date Recorded PHQ-2 Score 2 07/25/2018 [facility] [place] of Occupat ional Health - Occupational Stress [...] AM CDT See message to pt. Lainey Wells on 01/15/2020 at 10:52 AM * Telephone [...] 2:11 PM CDT Please call [facility] in [facility] and find out why they are having [...] Total Score: 9 08/09/19 20 7:03 AM MACHINIST FIRST CLASS documented as of this encounter Care Teams Rides Attendant Relationship Specialty Start Date End Date Noreen Flores APRN IMAGE ARCHIVIST [address] [facility] [place] [address] PCP - General Nurse Practitioner 01/09/19 12/12/21 Sudha Greene NP [address] [address] PCP - General 11/01/22 Noreen Flores APRN IMAGE ARCHIVIST [address] [place] [address] [place] [address] Assigned PCP 06/16/18 05/26/22 Kalyan Galvan Personal Advocate & Liaison (PAL) 08/08/19 04/26/21 [facility] [address] [place] [address] [place] [address] Pharmacist Pharmacist 10/14/19 12/01/20 Eduardo Sharma MD [address] [address] Assigned Sleep Provider 04/02/2005/07 [place] [address] [address] Assigned Musculoskeletal Provider 04/02/20 08/24/20 Marcelo Artis PA-C [address] [address] Assigned Musculoskeletal Provider 08/25/20 08/20/21 Rodrigo Man PA-C [address] [place] [place] [address] Assigned Surgical Provider 08/25/20 11/27/20 Noreen Flores APRN IMAGE ARCHIVIST [address] [facility] [place] [address] Assigned PCP 08/05/22 03/16/23 Agatha Null DPM, Podiatry/Foot and Ankle Surgery [address] [place] [address] [place] 321337 Assigned Musculoskeletal Provider 11/04/22 [facility] [address] [facility] [place] [id number] Assigned PCP 07/05/23 documented as of this encounter
--- OUTSIDE RECORDS SUMMARY | 2023-09-25 09:55 | XMS_ITS | Encounter Summary ---
Author Name Unknown Organization [facility] Address [address] [place] [address] Care Team Providers Care Heating And Air Conditioning Mechanic Name Role Phone Noreen Flores APRN CHEESE PACKER Unavailable Noreen Flores APRN CHEESE PACKER Primary Car e Provider Kalyan Galvan Unavailable Unavailable Lashae Trevino [facility] Unavailable Eduardo Sharma MD Unavailable Marcelo Artis PA-C Unavailable Rodrigo Man PA-C Unavailable [phone] Noreen Flores APRN CHEESE PACKER Unavailable Sudha Greene NP Primary Care Provider [phone] Agatha Null DPM, Podiatry /Foot and Ankle Surgery Unavailable [facility] - [facility] Unavailable Encounter Details Date Type Department Care Team (Late st Contact Info) Description 10/20/2020 [facility] [address] [facility] [address] [place] [phone] Lainey Wells Social History Tobacco Use [...] Friends and Family Patient declined 08/08/2019 Attends [employer] Services Patient declined 07/13 Active Member [...] Answer Date Recorded PHQ-2 Score 2 07/25/2018 [facility] of Occupat ional Health - Occupational Stress [...] of this encounter Care Teams Heating And Air Conditioning Mechanic Relationship Specialty Start Date End Date Noreen Flores APRN CHEESE PACKER [address] [facility] [place] [address] PCP - General Nurse Practitioner 01/09/19 12/12/21 Sudha Greene, MA[place] [address] [address] PCP - General 11/01/22 Noreen Flores APRN CHEESE PACKER [address] [place] [address] [place] [address] Assigned PCP 06/16/18 05/26/22 Kalyan Galvan Personal Advocate & Liaison (PAL) 08/08/19 04/26/21 Lashae Trevino, [facility] [place] [address] Pharmacist Pharmacist 10/14/19 12/01/20 Eduardo Sharma MD [address] [place] [address] [place] [address] Assigned Sleep Provider 04/02/2005/07 Marcelo Artis PA-C [address] [facility] 300 [place] [address] Assigned Musculoskeletal Provider 08/25/20 08/20/21 Rodrigo Man PA-C [address] [place] [address] [place] [address] Assigned Surgical Provider 08/25/20 11/27/20 Noreen Flores APRN CHEESE PACKER [address] [facility] [place] [address] Assigned PCP 08/05/22 03/16/23 Agatha Null DPM, Podiatry/Foot and Ankle Surgery [address] [place] [address] Assigned Musculoskeletal Provider 11/04/22 [facility] [address] [facility] [place] [id number] Assigned PCP 07/05/23 documented as of this encounter
--- OUTSIDE RECORDS SUMMARY | 2023-09-25 09:55 | XMS_ITS | Encounter Summary ---
Author Name Unknown Organization [place] Address [address] [place] [address] Care Team Providers Care Truer Pinion And Wheel Name Role Phone Noreen Flores APRN RELEASE COORDINATOR Unavailable Noreen Flores APRN RELEASE COORDINATOR Primary Car e Provider Kalyan Galvan Unavailable Unavailable Lashae Trevino [facility] Unavailable [phone] Eduardo Sharma MD Unavailable Rios Monteiro MD Unavailable Marcelo Artis PA-C Unavailable [phone] Rodrigo Man PA-C Unavailable [phone] Noreen Flores APRN RELEASE COORDINATOR Unavailable Sudha Greene NP Primary Care Provider Agatha Null DPM, Podiatry /Foot and Ankle Surgery Unavailable Clinic - [facility] Unavailable Encounter Details Date Type Department Care Team (Late st Contact Info) Description 10/14/2019 [facility] [address] [facility] [address] [place] [phone] Lashae Trevino, [facility] [address] [facility] [place] [address] Social History Tobacco Use [...] Friends and Family Patient declined 08/08/2019 Attends [employer] Patient declined 07/13 Active Member of [...] Answer Date Recorded PHQ-2 Score 2 07/25/2018 [facility] [place] of Occupat ional Health - Occupational Stress [...] Total Score: 9 08/09/19 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 documented as of this encounter Care Teams Truer Pinion And Wheel Relationship Specialty Start Date End Date Noreen Flores APRN RELEASE COORDINATOR [address] [place] [address] [place] [address] PCP - General Nurse Practitioner 01/09/19 12/12/21 Sudha Greene, MAURICIO [address] [address] PCP - General 11/01/22 Noreen Flores APRN RELEASE COORDINATOR [address] [place] [address] [place] [address] Assigned PCP 06/16/18 05/26/22 Kalyan Galvan Personal Advocate & Liaison (PAL) 08/08/19 04/26/21 Lashae Trevino, [facility] [address] [place] [address] Pharmacist Pharmacist 10/14/19 12/01/20 Eduardo Sharma MD [address] [place] [address] [place] [address] Assigned Sleep Provider 04/02/2005/07 [place] [address] [facility] 300 [place] [address] Assigned Musculoskeletal Provider 04/02/20 08/24/20 Marcelo Artis PA-C [address] [address] Assigned Musculoskeletal Provider 08/25/20 08/20/21 Rodrigo Man PA-C [address] [facility] 450 [place] [address] Assigned Surgical Provider 08/25/20 11/27/20 Noreen Flores APRN RELEASE COORDINATOR [address] [place] [address] [place] [address] Assigned PCP 08/05/22 03/16/23 Agatha Null DPM, Podiatry/Foot and Ankle Surgery [address] [facility] 300 [place] [address] Assigned Musculoskeletal Provider 11/04/22 [facility] - [facility] [place] [facility] [address] [place] [address] Assigned PCP 07/05/23 documented as of this encounter
--- OUTSIDE RECORDS SUMMARY | 2023-09-25 09:55 | XMS_ITS | Encounter Summary ---
Author Name Unknown Organization [place] Address [address] [place] [address] Care Team Providers Care Revival Clerk Name Role Phone Noreen Flores APRN TUBE TRAILER FILLER Unavailable Noreen Flores APRN TUBE TRAILER FILLER Primary Car e Provider Kalyan Galvan Unavailable Unavailable Lashae Trevino [facility] Unavailable Eduardo Sharma MD Unavailable Rios Monteiro MD Unavailable Marcelo Artis PA-C Unavailable Rodrigo Man PA-C Unavailable [phone] Noreen Flores APRN, CNP Unavailable Sudha Greene NP Primary Care Provider Agatha Null DPM, Podiatry /Foot and Ankle Surgery Unavailable Clinic - [facility] Unavailable Encounter Details Date Type Department Care Team (Late st Contact Info) Description 08/02/2020 Myra Moya [facility] [address] [facility] [address] [place] [address] Lainey Wells Social History Tobacco [...] Answer Date Recorded PHQ-2 Score 2 07/25/2018 [facility] of Occupat ional Health - Occupational [...] COVID-19? 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 Plan of [...] documented as of this encounter Care Teams Revival Clerk Relationship Specialty Start Date End Date Noreen Flores APRN TUBE TRAILER FILLER [address] [place] [address] [place] [address] PCP - General Nurse Practitioner 01/09/19 12/12/21 Sudha Greene NP [address] [address] PCP - General 11/01/22 Noreen Flores APRN TUBE TRAILER FILLER [address] [place] [address] [place] [address] Assigned PCP 06/16/18 05/26/22 Kalyan Galvan Personal Advocate & Liaison (PAL) 08/08/19 04/26/21 [facility] 14[address] [facility] [place] [address] Pharmacist Pharmacist 10/14/19 12/01/20 Eduardo Sharma MD [address] [facility] 103 [place] [address] Assigned Sleep Provider 04/02/2005/07 [place] [address] [facility] 300 [place] [address] Assigned Musculoskeletal Provider 04/02/20 08/24/20 Marcelo Artis PA-C [address] [facility] 300 [place] [address] Assigned Musculoskeletal Provider 08/25/20 08/20/21 Rodrigo Man PA-C [address] [facility] [address] [place] [address] Assigned Surgical Provider 08/25/20 11/27/20 Noreen Flores APRN CNP [address] [place] [address] [place] [address] Assigned PCP 08/05/22 03/16/23 Agatha Null DPM, Podiatry/Foot and Ankle Surgery [address] [facility] [address] [place] [address] Assigned Musculoskeletal Provider 11/04/22 [facility] - [facility] [address] [facility] [place] [address] Assigned PCP 07/05/23 documented as of this encounter
--- OUTSIDE RECORDS SUMMARY | 2023-09-25 09:55 | XMS_ITS | Encounter Summary ---
Author Name Unknown Organization [facility] Address [address] [place] [address] Care Team Providers Care Assistant Secretary Name Role Phone Noreen Flores APRN SUPPLY CHAIN ASSOCIATE Unavailable Noreen Flores APRN SUPPLY CHAIN ASSOCIATE Primary Car e Provider Kalyan Galvan Unavailable Unavailable Lashae Trevino [facility] Unavailable [phone] Eduardo Sharma MD Unavailable Marcelo Artis PA-C Unavailable Rodrigo Man PA-C Unavailable [phone] Noreen Flores APRN SUPPLY CHAIN ASSOCIATE Unavailable Sudha Greene NP Primary Care Provider Agatha Null DPM, Podiatry /Foot and Ankle Surgery Unavailable Clinic - [facility] Unavailable Reason for Visit * Reason Onset Date Comments Refill Request 10/05/2020 topiramate (TOPA MAX) 100 MG tablet Encounter Details Date Type Department Care Team (Late st Contact Info) Description 10/05/2020 Refill M [facility] [place] [address] [facility] [address] [place] [address] Noreen Flores APRN SUPPLY CHAIN ASSOCIATE [address]305 [facility] [place] [address] Refill Request (topiramate (TOPAMAX) [...] Date Recorded PHQ-2 Score 2 07/25/2018 [facility] [place] of Occupat ional Health - Occupational Stress [...] as of this encounter Care Teams Assistant Secretary Relationship Specialty Start Date End Date Noreen Flores APRN SUPPLY CHAIN ASSOCIATE [address] [place] [address] [place] [address] PCP - General Nurse Practitioner 01/09/19 12/12/21 Sudha Greene NP [address] [address] PCP - General 11/01/22 Noreen Flores APRN SUPPLY CHAIN ASSOCIATE [address] [place] [address] [place] [address] Assigned PCP 06/16/18 05/26/22 Kalyan Galvan Personal Advocate & Liaison (PAL) 08/08/19 04/26/21 Lashae Trevino, [facility] 1440 [facility] [place] [address] Pharmacist Pharmacist 10/14/19 12/01/20 Eduardo Sharma MD [address] [place] [address] [place] [address] Assigned Sleep Provider 04/02/2005/07 Marcelo Artis PA-C [address] [facility] 300 [place] [address] Assigned Musculoskeletal Provider 08/25/20 08/20/21 Rodrigo Man PA-C [address] [place] [address] [place] [address] Assigned Surgical Provider 08/25/20 11/27/20 Noreen Flores APRN CNP [address] [place] [address] [place] [address] Assigned PCP 08/05/22 03/16/23 Agatha Null DPM, Podiatry/Foot and Ankle Surgery [address] [facility] 300 [place] [address] Assigned Musculoskeletal Provider 11/04/22 [facility] 3305 [facility] [place] [address] Assigned PCP 07/05/23 documented as of this encounter
--- OUTSIDE RECORDS SUMMARY | 2023-09-25 09:55 | XMS_ITS | Encounter Summary ---
Author Name Unknown Organization [place] Address [address] [place] [address] Care Team Providers Care Making Department Preparer Name Role Phone Noreen Flores APRN, CNP Unavailable Noreen Flores APRN, CNP Primary Car e Provider Kalyan Galvan Unavailable Unavailable Lashae Trevino [facility] Unavailable Eduardo Sharma MD Unavailable Rios Monteiro MD Unavailable Marcelo Artis PA-C Unavailable Rodrigo Man PA-C Unavailable [phone] Noreen Flores APRN, CNP Unavailable Sudha Greene NP Primary Care Provider Agatha Null DPM, Podiatry /Foot and Ankle Surgery Unavailable Clinic - [facility] Unavailable Reason for Visit * Reason Onset Date Comments Refill Request 05/29/2020 omeprazole (PRIL OSEC) [address] capsule Encounter Details Date Type Department Care Team (Late st Contact Info) Description 05/29/2020 Refill M [facility] [address] [facility] [address] [place] [address] Noreen Flores APRN CARDIOLOGY TECH [address] [facility] [address] Refill Request (omeprazole (PRILOSEC) [address] nash) Social History Tobacco Use Types Packs/Day Years [...] Friends and Family Patient declined 08/08/2019 Attends [employer] Patient declined 07/13 Active Member of [...] Answer Date Recorded PHQ-2 Score 2 07/25/2018 [facility] [place] of Occupat ional Health - Occupational [...] Keyona Mantilla RN - 05/31/2020 10:42 AM INTERNAL MEDICINE HOSPITALIST Patient has refills remaining with requesting pharmacy. Keyona Palacios - Registered Nurse [facility] Acute and Diagnostic Services RNAL MEDICINE HOSPITALIST * Telephone Encounter - Kartik Javier - 05/29/2020 5:01 PM CST Alternative Requested: Insurance covers max 90 days in a year. Please submit PA to continue therapy. RNAL MEDICINE HOSPITALIST documented in this encounter Plan of Treatment [...] documented as of this encounter Care Teams Making Department Preparer Relationship Specialty Start Date End Date Noreen Flores APRN CARDIOLOGY TECH [address] [place] [address] [place] [address] PCP - General Nurse Practitioner 01/09/19 12/12/21 Sudha Greene NP [address] [address] PCP - General 11/01/22 Noreen Flores APRN CARDIOLOGY TECH [address] [place] [address] [place] [address] Assigned PCP 06/16/18 05/26/22 Kalyan Galvan Personal Advocate & Liaison (PAL) 08/08/19 04/26/21 Lashae Trevino, [facility] 1440 [facility] [place] [phone] Pharmacist Pharmacist 10/14/19 12/01/20 Eduardo Sharma MD [address] [place] [address] [place] [address] Assigned Sleep Provider 04/02/2005/07 [place] [address] [place] [address] [place] [address] Assigned Musculoskeletal Provider 04/02/20 08/24/20 Marcelo Artis PA-C [address] [place] [address] [place] [address] Assigned Musculoskeletal Provider 08/25/20 08/20/21 Rodrigo Man PA-C [address] [place] [address] [place] [address] Assigned Surgical Provider 08/25/20 11/27/20 Noreen Flores APRN CARDIOLOGY TECH [address] [facility] [place] [address] Assigned PCP 08/05/22 03/16/23 Agatha Null, DPM, Podiatry/Foot and Ankle Surgery [address] [facility] 300 [place] [address] Assigned Musculoskeletal Provider 11/04/22 [facility] [place] [place] [address] [place] [address] Assigned PCP 07/05/23 documented as of this encounter
--- OUTSIDE RECORDS SUMMARY | 2023-09-25 09:55 | XMS_ITS | Encounter Summary ---
Author Name Unknown Organization [place] Address [address] [place] [address] Care Team Providers Care Accounting Generalist Name Role Phone Noreen Flores APRN TURBINE ASSEMBLER Unavailable Noreen Flores APRN TURBINE ASSEMBLER Primary Car e Provider Kalyan Galvan Unavailable Unavailable Lashae Trevino [facility] Unavailable [phone] Eduardo Sharma MD Unavailable Marcelo Artis PA-C Unavailable Rodrigo Man PA-C Unavailable [phone] Noreen Flores APRN TURBINE ASSEMBLER Unavailable Sudha Greene NP Primary Care Provider Agatha Null DPM, Podiatry /Foot and Ankle Surgery Unavailable [facility] - [facility] [place] [facility] Unavailable Encounter Details Date Type Department Care Team (Late st Contact Info) Description 10/28/2020 Myra Moya [facility] [place] [address] [facility] [address] [place] [address] Lashae Trevino, [facility] [address] [facility] [place] [address] Social [...] Answer Date Recorded PHQ-2 Score 2 07/25/2018 [facility] [place] of Occupat ional Health - Occupational Stress [...] as of this encounter Care Teams Accounting Generalist Relationship Specialty Start Date End Date Noreen Flores APRN TURBINE ASSEMBLER [facility] [place] [address] PCP - General Nurse Practitioner 01/09/19 12/12/21 Sudha Greene NP [address] [address] PCP - General 11/01/22 Noreen Flores APRN TURBINE ASSEMBLER [address] [place] [address] [place] [address] Assigned PCP 06/16/18 05/26/22 Kalyan Galvan Personal Advocate & Liaison (PAL) 08/08/19 04/26/21 [facility] [address] [place] [address] [place] [address] Pharmacist Pharmacist 10/14/19 12/01/20 Eduardo Sharma MD [address] [facility] 103 [place] [address] Assigned Sleep Provider 04/02/2005/07 Marcelo Artis PA-C [id number] [place] [address] 300 [place] [address] Assigned Musculoskeletal Provider 08/25/20 08/20/21 Rodrigo Man PA-C [address] [place] [place] [address] Assigned Surgical Provider 08/25/20 11/27/20 Noreen Flores APRN TURBINE ASSEMBLER 3305 [facility] [place] [address] Assigned PCP 08/05/22 03/16/23 Agatha Null DPM, Podiatry/Foot and Ankle Surgery [address] [place] [address] [place] [address] Assigned Musculoskeletal Provider 11/04/22 Clinic - [facility] [place] [facility] [address] [facility] [place] [address] Assigned PCP 07/05/23 documented as of this encounter
--- OUTSIDE RECORDS SUMMARY | 2023-09-25 09:55 | XMS_ITS | Encounter Summary ---
Author Name Unknown Organization [facility] Address [address] [place] [address] Care Team Providers Care Real Estate Coordinator Name Role Phone Noreen Flores APRN, CNP Unavailable Noreen Flores APRN, CNP Primary Car e Provider Kalyan Galvan Unavailable Unavailable Lashae Trevino [facility] Unavailable [phone] Eduardo Sharma MD Unavailable Rios Monteiro MD Unavailable [phone] Marcelo Artis PA-C Unavailable Rodrigo Man PA-C Unavailable [phone] Noreen Flores APRN, CNP Unavailable Sudha Greene NP Primary Care Provider Agatha Null DPM, Podiatry /Foot and Ankle Surgery Unavailable Clinic - [facility] Unavailable Reason for Visit * Reason Comments Medication Refill Encounter Details Date Type Department Care Team (Late st Contact Info) Description 07/10/2020 Refill [facility] [place] [address] [place] [address] Noreen Flores APRN CNP [address] [facility] [place] [address] Medication Refill Social [...] Answer Date Recorded PHQ-2 Score 2 07/25/2018 [facility] of Occupat ional Health - Occupational Stress [...] Desirae Champagne RN - 07/13/2020 11:10 AM ASSOCIATE TECHNICIAN Routing refill request to provider for review/approval because: Patient taking 8-10 sumatriptan a month. Desirae Champagne RN on 07/13/2020 at 11:11 AM CIATE TECHNICIAN * Telephone Encounter - Lainey Wells - 07/12/2020 2:22 PM CST The pt called back and she says that she takes anywhere from 8-10 a month. Lainey Wells on 07/12/2020 at 2:25 PM CIATE TECHNICIAN * Telephone Encounter - Lainey Wells - 07/12/2020 10:59 AM CST 1st attempt l/m. Lainey Wells on 07/12/2020 at 10:59 AM CIATE TECHNICIAN * Telephone Encounter - Desirae Champagne RN - 07/12/2020 10:02 AM ASSOCIATE TECHNICIAN Please call patient and see how many doses of sumatriptan patient has used in the past month. Should be using 8 doses or fewer per month. Desirae Champagne RN on 07/12/2020 at 10:07 AM CIATE TECHNICIAN documented in this encounter Plan of [...] documented as of this encounter Care Teams Real Estate Coordinator Relationship Specialty Start Date End Date Noreen Flores APRN OUTSIDE PLANT ENGINEER [address] [facility] [place] [address] PCP - General Nurse Practitioner 01/09/19 12/12/21 Sudha Greene NP [address] [address] PCP - General 11/01/22 Noreen Flores APRN OUTSIDE PLANT ENGINEER [address] [place] [address] [place] [address] Assigned PCP 06/16/18 05/26/22 Kalyan Galvan Personal Advocate & Liaison (PAL) 08/08/19 04/26/21 [facility] [address] [place] [address] [place] [address] Pharmacist Pharmacist 10/14/19 12/01/20 Eduadro Sharma MD [address] [address] Assigned Sleep Provider 04/02/2005/07 [place] [address] [address] Assigned Musculoskeletal Provider 04/02/20 08/24/20 Marcelo Artis PA-C [address] [address] Assigned Musculoskeletal Provider 08/25/20 08/20/21 Rodrigo Man PA-C [address] [place] [address] Assigned Surgical Provider 08/25/20 11/27/20 Noreen Flores APRN OUTSIDE PLANT ENGINEER [address] [facility] [place] [address] Assigned PCP 08/05/22 03/16/23 Agatha Null DPM, Podiatry/Foot and Ankle Surgery [address] [place] [address] [place] [address] Assigned Musculoskeletal Provider 11/04/22 [facility] [address] [facility] [place] [id number] Assigned PCP 07/05/23 documented as of this encounter
--- OUTSIDE RECORDS SUMMARY | 2023-09-25 09:55 | XMS_ITS | Encounter Summary ---
Author Name Unknown Organization [place] Address [address] [place] [address] Care Team Providers Care Rn Clinical Research Name Role Phone Noreen Flores APRN SPRAYER AUTOMATIC SPRAY MACHINE Unavailable Noreen Flores APRN SPRAYER AUTOMATIC SPRAY MACHINE Primary Car e Provider Kalyan Galvan Unavailable Unavailable Eduardo Sharma MD Unavailable Marcelo Artis PA-C Unavailable Noreen Flores APRN SPRAYER AUTOMATIC SPRAY MACHINE Unavailable Sudha Greene NP Primary Care Provider [phone] Agatha NullM, Podiatry /Foot and Ankle Surgery Unavailable Clinic - [facility] [place] Unavailable Reason for Visit * Reason Comments Medication Refill Encounter Details Date Type Department Care Team (Late st Contact Info) Description 01/06/2021 Refill [facility] [place] [address] [place] [address] Noreen Flores APRN SPRAYER AUTOMATIC SPRAY MACHINE 3305 [facility] [place] [id number] Medication Refill Social History Tobacco Use Types [...] Friends and Family Patient declined 08/08/2019 Attends Confucianist Services Patient declined 07/13 Active Member of [...] Answer Date Recorded PHQ-2 Score 0 11/10/2020 [facility] of Occupat ional Health - [...] as of this encounter Care Teams Rn Clinical Research Relationship Specialty Start Date End Date Noreen Flores APRN SPRAYER AUTOMATIC SPRAY MACHINE [address] [place] [address] [place] [address] PCP - General Nurse Practitioner 01/09/19 12/12/21 Sudha Greene NP [address] [address] PCP - General 11/01/22 Noreen Flores APRN SPRAYER AUTOMATIC SPRAY MACHINE [address] [place] [address] [place] [address] Assigned PCP 06/16/18 05/26/22 Kalyan Galvan Personal Advocate & Liaison (PAL) 08/08/19 04/26/21 Eduardo Sharma MD 6363 [facility] [address] [place] [address] Assigned Sleep Provider 04/02/2005/07 Marcelo Artis PARejiC [address] [place] [address] [address] [place] [address] Assigned Musculoskeletal Provider 08/25/20 08/20/21 Noreen Flores APRN SPRAYER AUTOMATIC SPRAY MACHINE [address] [place] [address] [place] [address] Assigned PCP 08/05/22 03/16/23 Agatha Null, MARÍA, Podiatry/Foot and Ankle Surgery [address] [place] [address] Assigned Musculoskeletal Provider 11/04/22 [facility] [place] [address] [id number] Assigned PCP 07/05/23 documented as of this encounter
--- OUTSIDE RECORDS SUMMARY | 2023-09-25 09:55 | XMS_ITS | Encounter Summary ---
Author Name Unknown Organization [place] Address [address] [place] [address] Care Team Providers Care Optometric Assistant Name Role Phone Nroeen Flores APRN, CNP Unavailable Noreen Flores APRN, CNP Primary Car e Provider Kalyan Galvan Unavailable Unavailable Lashae Trevino [facility] Unavailable Eduardo Sharma MD Unavailable Rios Monteiro MD Unavailable Marcelo Artis PA-C Unavailable [phone] Rodrigo Man PA-C Unavailable [phone] Noreen Flores APRN, CNP Unavailable Sudha Greene NP Primary Care Provider Agatha Null DPM, Podiatry /Foot and Ankle Surgery Unavailable Clinic - [facility] Unavailable Reason for Visit * Reason Comments Medication Refill Encounter Details Date Type Department Care Team (Late st Contact Info) Description 06/18/2020 Refill [facility] [place] [address] [facility] [address] [facility] [address] [facility] [address] [address] [place] [phone] Noreen Flores APRN CNP 3[address] [facility] [place] [address] Medication Refill Social History [...] Friends and Family Patient declined 08/08/2019 Attends Moravian Services Patient declined 07/13 Active Member of [...] Answer Date Recorded PHQ-2 Score 2 07/25/2018 [facility] of Occupat ional Health - Occupational [...] Desirae Champagne RN - 06/18/2020 10:53 AM BUSINESS DEPARTMENT CHAIR Prescription approved per [facility] Refill Protocol. Desirae Champagne RN on 06/18/2020 at 10:52 AM NESS DEPARTMENT CHAIR documented in this encounter Plan of Treatment [...] documented as of this encounter Care Teams Optometric Assistant Relationship Specialty Start Date End Date Noreen Flores APRN DIE MAINTENANCE [address] [place] [address] [place] [address] PCP - General Nurse Practitioner 01/09/19 12/12/21 Sudha Greene, MAURICIO [address] [address] PCP - General 11/01/22 Noreen Flores APRN DIE MAINTENANCE [address] [place] [address] [place] [address] Assigned PCP 06/16/18 05/26/22 Kalyan Galvan Personal Advocate & Liaison (PAL) 08/08/19 04/26/21 Lashae Trevino, [facility] [address] [place] [address] Pharmacist Pharmacist 10/14/19 12/01/20 Eduardo Sharma MD [address] [place] [address] [place] [address] Assigned Sleep Provider 04/02/2005/07 [place] [address] [facility] [address] [place], [place] 8[address] Assigned Musculoskeletal Provider 04/02/20 08/24/20 Marcelo Artis PA-C [id number] [place] [address] 300 [place] [address] Assigned Musculoskeletal Provider 08/25/20 08/20/21 Rodrigo Man PA-C [address] [place] [address] [place] [address] Assigned Surgical Provider 08/25/20 11/27/20 Noreen Flores APRN CNP [address] [place] [address] [place] [address] Assigned PCP 08/05/22 03/16/23 Agatha Null DPM, Podiatry/Foot and Ankle Surgery [address] [place] [address] [address] [place] [address] Assigned Musculoskeletal Provider 11/04/22 [facility] 3[address] [facility] [place] [address] Assigned PCP 07/05/23 documented as of this encounter
--- OUTSIDE RECORDS SUMMARY | 2023-09-25 09:55 | XMS_ITS | Encounter Summary ---
Author Name Unknown Organization [place] Address [address] [place] [address] Care Team Providers Care Carpenter Helper Name Role Phone Noreen Flores APRN RESPIRATORY TECHNICIAN Unavailable Noreen Flores APRN RESPIRATORY TECHNICIAN Primary Car e Provider Kalyan Galvan Unavailable Unavailable Lashae Trevino [facility] Unavailable [phone] Eduardo Sharma MD Unavailable Rios Monteiro MD Unavailable Marcelo Artis PA-C Unavailable Rodrigo Man PA-C Unavailable [phone] Noreen Flores APRN RESPIRATORY TECHNICIAN Unavailable Sudha Greene NP Primary Care Provider Agatha Null DPM, Podiatry /Foot and Ankle Surgery Unavailable Clinic - [facility] Unavailable Encounter Details Date Type Department Care Team (Late st Contact Info) Description 07/15/2020 Myra M[facility] [place] [address] [place] [address] Noreen Flores APRN CNP [address] [facility] [place] [id number] Social History Tobacco Use Types Packs/Day Years [...] Answer Date Recorded PHQ-2 Score 2 07/25/2018 [facility] [place] of Occupat ional Health - Occupational Stress [...] COVID-19? No / Unsure 07/17/2020 1:32 PM PRECISION FARMING COORDINATOR documented as of this encounter Plan of [...] documented as of this encounter Care Teams Carpenter Helper Relationship Specialty Start Date End Date Noreen Flores APRN RESPIRATORY TECHNICIAN [address] [place] [address] [place] [address] PCP - General Nurse Practitioner 01/09/19 12/12/21 Sudha Greene, MAURICIO [address] [address] PCP - General 11/01/22 Noreen Flores APRN RESPIRATORY TECHNICIAN [address] [place] [address] [place] [address] Assigned PCP 06/16/18 05/26/22 Kalyan Galvan Personal Advocate & Liaison (PAL) 08/08/19 04/26/21 Lashae Trevino, [facility] [address] [place] [address] Pharmacist Pharmacist 10/14/19 12/01/20 Eduardo Sharma MD 6363 [place] [address] Assigned Sleep Provider 04/02/2005/07 [place] [address] [address] Assigned Musculoskeletal Provider 04/02/20 08/24/20 Marcelo Artis PA-C [address] [address] Assigned Musculoskeletal Provider 08/25/20 08/20/21 Rodrigo Man PA-C [address] [address] Assigned Surgical Provider 08/25/20 11/27/20 Noreen Flores APRN RESPIRATORY TECHNICIAN [address] [place] [address] [place] [address] Assigned PCP 08/05/22 03/16/23 Agatha Null DPM, Podiatry/Foot and Ankle Surgery [address] [facility] [facility] [address] [place] [address] Assigned Musculoskeletal Provider 11/04/22 [facility] [place] [address] [place] [address] [place] [address] Assigned PCP 07/05/23 documented as of this encounter
--- OUTSIDE RECORDS SUMMARY | 2023-09-25 09:55 | XMS_ITS | Encounter Summary ---
Author Name Unknown Organization [place] Address [address] [place] [address] Care Team Providers Care Wafer Fab Operator Name Role Phone Noreen Flores APRN BARREL LOADER Unavailable Noreen Flores APRN BARREL LOADER Primary Car e Provider Kalyan Galvan Unavailable Unavailable Lashae Trevino [facility] Unavailable Eduardo Sharma MD Unavailable Rios Monteiro MD Unavailable Marcelo Artis PA-C Unavailable Rodrigo Man PA-C Unavailable [phone] Noreen Flores APRN BARREL LOADER Unavailable Sudha Greene NP Primary Care Provider Agatha Null DPM, Podiatry /Foot and Ankle Surgery Unavailable Clinic - [place] [place] Unavailable Encounter Details Date Type Department Care Team (Late st Contact Info) Description 10/28/2019 Myra Moya [facility] [place] [address] [place] [phone] Noreen Flores APRN CNP [address] [facility] [place] [address] Social History Tobacco Use [...] Friends and Family Patient declined 08/08/2019 Attends Mosque Services Patient declined 07/13 Active Member of [...] Answer Date Recorded PHQ-2 Score 2 07/25/2018 [employer] [place] of Occupat ional Health - Occupational Stress [...] Total Score: 9 08/09/19 20 7:03 AM PARCEL POST WEIGHER documented as of this encounter Care Teams Wafer Fab Operator Relationship Specialty Start Date End Date Jeana-Noreen Miles APRN CNP [address] [facility] [place] [address] PCP - General Nurse Practitioner 01/09/19 12/12/21 Sudha Greene NP [address] [place] [address] PCP - General 11/01/22 Noreen Flores APRN BARREL LOADER [address] [place] [address] [place] [address] Assigned PCP 06/16/18 05/26/22 Kalyan Galvan Personal Advocate & Liaison (PAL) 08/08/19 04/26/21 [facility] [address] [place] [address] [place] [address] Pharmacist Pharmacist 10/14/19 12/01/20 Eduardo Sharma MD [address] [place] [address] [place] [address] Assigned Sleep Provider 04/02/2005/07 [place] [address] [place] [address] [place] [address] Assigned Musculoskeletal Provider 04/02/20 08/24/20 Marcelo Artis PA-C [address] [facility] [place] [address] [place] [address] Assigned Musculoskeletal Provider 08/25/20 08/20/21 Rodrigo Man PA-C [address] [place] [address] [place], [place] [address] Assigned Surgical Provider 08/25/20 11/27/20 Noreen Flores APRN BARREL LOADER [address] [place] [address] [place] [address] Assigned PCP 08/05/22 03/16/23 Agatha Null DPM, Podiatry/Foot and Ankle Surgery [address] [place] [address] Assigned Musculoskeletal Provider 11/04/22 [facility] - [place] [address] [place] [address] Assigned PCP 07/05/23 documented as of this encounter
--- OUTSIDE RECORDS SUMMARY | 2023-09-25 09:55 | XMS_ITS | Encounter Summary ---
Author Name Unknown Organization [place] Address [address] [place] [address] Care Team Providers Care Property Consultant Name Role Phone Noreen Flores APRN VENDING TECHNICIAN Unavailable Noreen Flores APRN VENDING TECHNICIAN Primary Car e Provider Kalyan Galvan Unavailable Unavailable Lashae Trevino [facility] Unavailable Eduardo Sharma MD Unavailable Marcelo Artis PA-C Unavailable Rodrigo Man PA-C Unavailable [phone] Noreen Flores APRN VENDING TECHNICIAN Unavailable Sudha Greene NP Primary Care Provider Agatha Null DPM, Podiatry /Foot and Ankle Surgery Unavailable Clinic - [place] Unavailable Reason for Visit * Reason Onset Date Comments Refill Request 09/24/2020 zolpidem (AMBIEN ) 5 MG tablet Encounter Details Date Type Department Care Team (Late st Contact Info) Description 09/24/2020 Iraj Moya [facility] [place] [address] [facility] [address] [place] [address] Noreen Flores APRN VENDING TECHNICIAN 3305 [facility] [place] [address] Refill Request (zolpidem (AMBIEN) [...] Answer Date Recorded PHQ-2 Score 2 07/25/2018 [facility] [place] of Occupat ional Health - Occupational Stress [...] as of this encounter Care Teams Property Consultant Relationship Specialty Start Date End Date Noreen Flores APRN VENDING TECHNICIAN [address] [place] [address] [place] [address] PCP - General Nurse Practitioner 01/09/19 12/12/21 Sudha Greene, MAURICIO [address] [address] PCP - General 11/01/22 Noreen Flores APRN VENDING TECHNICIAN [address] [place] [address] [place] [address] Assigned PCP 06/16/18 05/26/22 Kalyan Galvan Personal Advocate & Liaison (PAL) 08/08/19 04/26/21 Lashae Trevino, [facility] [address] [place] [address] Pharmacist Pharmacist 10/14/19 12/01/20 Eduardo Sharma MD 6363 [place] [address] Assigned Sleep Provider 04/02/2005/07 Marcelo Artis PA-C [address] [facility] 300 [place] [address] Assigned Musculoskeletal Provider 08/25/20 08/20/21 Rodrigo Man PA-C [address] [facility] 450 [place] [address] Assigned Surgical Provider 08/25/20 11/27/20 Noreen Flores APRN CNP [address] [place] [address] [place] [address] Assigned PCP 08/05/22 03/16/23 Agatha Null DPM, Podiatry/Foot and Ankle Surgery [address] [place] [address] [address] [place] [address] Assigned Musculoskeletal Provider 11/04/22 [facility] [place] [address] [place] [address] [place] [address] Assigned PCP 07/05/23 documented as of this encounter
--- OUTSIDE RECORDS SUMMARY | 2023-09-25 09:55 | XMS_ITS | Encounter Summary ---
Author Name Unknown Organization [place] Address [address] [place] [address] Care Team Providers Care Compounding And Finishing Supervisor Name Role Phone Noreen Flores APRN SALESPERSON WOMEN'S HATS Unavailable Noreen Flores APRN SALESPERSON WOMEN'S HATS Primary Car e Provider Kalyan Galvan Unavailable Unavailable Lashae Trevino [facility] Unavailable Eduardo Sharma MD Unavailable Marcelo Artis PA-C Unavailable Rodrigo Man PA-C Unavailable Noreen Flores APRN SALESPERSON WOMEN'S HATS Unavailable Sudha Greene NP Primary Care Provider Agatha NullM, Podiatry /Foot and Ankle Surgery Unavailable [facility] [place] [place] [facility] Unavailable Encounter Details Date Type Department [...] Friends and Family Patient declined 08/08/2019 Attends Quaker Services Patient declined 07/13 Active Member of [...] Answer Date Recorded PHQ-2 Score 2 07/25/2018 [facility] of Occupat ional Health - Occupational [...] documented as of this encounter Care Teams Compounding And Finishing Supervisor Relationship Specialty Start Date End Date Noreen Flores APRN SALESPERSON WOMEN'S HATS 3305 [facility] [place] [address] PCP - General Nurse Practitioner 01/09/19 12/12/21 Sudha Greene NP [address] [address] PCP - General 11/01/22 Noreen Flores APRN SALESPERSON WOMEN'S HATS [address] [place] [address] [place] [address] Assigned PCP 06/16/18 05/26/22 Kalyan Galvan Personal Advocate & Liaison (PAL) 08/08/19 04/26/21 [facility] [place] [address] Pharmacist Pharmacist 10/14/19 12/01/20 Eduardo Sharma MD [address] [address] [place] [address] Assigned Sleep Provider 04/02/2005/07 Marcelo Artis PA-C [address] [place] [address] 300 [place] [address] Assigned Musculoskeletal Provider 08/25/20 08/20/21 Rodrigo Man PA-C [address] [place] [address] [place] [address] Assigned Surgical Provider 08/25/20 11/27/20 Noreen Flores APRN SALESPERSON WOMEN'S HATS 3305 [facility] [place] [address] Assigned PCP 08/05/22 03/16/23 Agatha Null DPM, Podiatry/Foot and Ankle Surgery [address] [place] [address] Assigned Musculoskeletal Provider 11/04/22 Clinic - [facility] [place] [facility] [address] [facility] [place] [address] Assigned PCP 07/05/23 documented as of this encounter
--- OUTSIDE RECORDS SUMMARY | 2023-09-25 09:55 | XMS_ITS | Encounter Summary ---
Author Name Unknown Organization [place] Address [address] [place] [address] Care Team Providers Care Parts Representative Name Role Phone Noreen Flores APRN, CNP Unavailable Noreen Flores APRN DATA PROCESSING CLERK Primary Car e Provider Kalyan Galvan Unavailable Unavailable Lashae Trevino [facility] Unavailable [phone] Eduardo Sharma MD Unavailable Rios Monteiro MD Unavailable Marcelo Artis PA-C Unavailable Rodrigo Man PA-C Unavailable [phone] Noreen Flores APRN DATA PROCESSING CLERK Unavailable Sudha Greene NP Primary Care Provider Agatha Null DPM, Podiatry /Foot and Ankle Surgery Unavailable Clinic - [place] [facility] Unavailable Reason for Visit * Reason Onset Date Comments Outreach 12/09/2019 Encounter Details Date Type Department Care Team (Late st Contact Info) Description 12/09/2019 [facility] [place] [address] [place] [phone] Noreen Flores APRN CNP 3305 [facility] [place] [address] Outreach Social History Tobacco Use Types Packs/Day [...] Answer Date Recorded PHQ-2 Score 2 07/25/2018 [facility] [place] of Occupat ional Health - Occupational Stress [...] Called pharmacy noted that pt did not medicinal plant picker the Imitrex 50 mg. Additionally, pharmacy requested that an order be faxed for the Loratadine-d as the e-prescribe didnot transmit to them. Fax number: [phone] Kalyan Galvan, EMT at 9:53 AM on December 11, 2019 [facility] Health Guide [phone] documented in this encounter Plan of Treatment [...] Total Score: 9 08/09/19 20 7:03 AM PHYTOPATHOLOGY TEACHER documented as of this encounter Care Teams Parts Representative Relationship Specialty Start Date End Date Noreen Flores APRN DATA PROCESSING CLERK [address] [place] [address] [place] [address] PCP - General Nurse Practitioner 01/09/19 12/12/21 Sudha Greene NP [address] [address] PCP - General 11/01/22 Noreen Flores APRN DATA PROCESSING CLERK [address] [place] [address] [place] [address] Assigned PCP 06/16/18 05/26/22 Kalyan Galvan Personal Advocate & Liaison (PAL) 08/08/19 04/26/21 Lashae Trevino, [facility] 1440 [facility] [place] [phone] Pharmacist Pharmacist 10/14/19 12/01/20 Eduardo Sharma MD [address] [place] [address] [place] [address] Assigned Sleep Provider 04/02/2005/07 [place] [address] [place] [address] [place] [address] Assigned Musculoskeletal Provider 04/02/20 08/24/20 Marcelo Artis PA-C [address] [place] [address] [place] [address] Assigned Musculoskeletal Provider 08/25/20 08/20/21 Rodrigo Man PA-C [address] [place] [address] [place] [address] Assigned Surgical Provider 08/25/20 11/27/20 Noreen Flores APRN DATA PROCESSING CLERK 3305 [facility] [place] [address] Assigned PCP 08/05/22 03/16/23 Agatha Null, DPM, Podiatry/Foot and Ankle Surgery [address] [facility] [address] [place] [address] Assigned Musculoskeletal Provider 11/04/22 Clinic - [place] [address] [place] [address] Assigned PCP 07/05/23 documented as of this encounter
--- OUTSIDE RECORDS SUMMARY | 2023-09-25 09:55 | XMS_ITS | Encounter Summary ---
Author Name Unknown Organization [place] Address [address] [place] [address] Care Team Providers Care Silk Top Hat Body Maker Name Role Phone Noreen Flores APRN TRANSPLANTER ORCHID Unavailable Noreen Flores APRN TRANSPLANTER ORCHID Primary Car e Provider Kalyan Galvan Unavailable Unavailable Lashae Trevino [facility] Unavailable Eduardo Sharma MD Unavailable Marcelo Artis PA-C Unavailable Rodrigo Man PA-C Unavailable Noreen Flores APRN TRANSPLANTER ORCHID Unavailable Sudha Greene NP Primary Care Provider Agatha NullM, Podiatry /Foot and Ankle Surgery Unavailable [facility] [place] [facility] Unavailable Encounter Details Date Type Department [...] Answer Date Recorded PHQ-2 Score 2 07/25/2018 [facility] [...] documented as of this encounter Care Teams Silk Top Hat Body Maker Relationship Specialty Start Date End Date Noreen Flores APRN TRANSPLANTER ORCHID [address] [place] [address] [place] [address] PCP - General Nurse Practitioner 01/09/19 12/12/21 Sudha Greene, MAURICIO [address] [address] PCP - General 11/01/22 Noreen Flores APRN TRANSPLANTER ORCHID [address] [place] [address] [place] [address] Assigned PCP 06/16/18 05/26/22 Kalyan Galvan Personal Advocate & Liaison (PAL) 08/08/19 04/26/21 Lashae Trevino [facility] [place] [phone] Pharmacist Pharmacist 10/14/19 12/01/20 Eduardo Sharma MD [address] [place] [id number] Assigned Sleep Provider 04/02/2005/07 Marcelo Artis PA-C [address] [facility] [address] [place] [address] Assigned Musculoskeletal Provider 08/25/20 08/20/21 Rodrigo Man PA-C [address] [place] [address] Assigned Surgical Provider 08/25/20 11/27/20 Noreen Flores APRN TRANSPLANTER ORCHID [address] [facility] [place] [address] Assigned PCP 08/05/22 03/16/23 Agatha Null DPM, Podiatry/Foot and Ankle Surgery [address] [place] [address] Assigned Musculoskeletal Provider 11/04/22 [facility] 3[address] [facility] [place] [address] Assigned PCP 07/05/23 documented as of this encounter
--- OUTSIDE RECORDS SUMMARY | 2023-09-25 09:56 | XMS_ITS | Encounter Summary ---
Author Name Unknown Organization [place] Address [address] [place] [address] Care Team Providers Care Marine Surveyor Name Role Phone Vanda Guerrero MD Primary Care Provider [phone] Vanda Guerrero MD Unavailable [phone] Jeana-Noreen Miles APRN SETTER JUICE PACKAGING MACHINES Unavailable [facility]-Noreen Miles APRN SETTER JUICE PACKAGING MACHINES Unavailable [facility]-JdNoreen castro APRN SETTER JUICE PACKAGING MACHINES Primary Car e Provider Kalyan Galvan Unavailable Unavailable Lashae Trevino [facility] Unavailable Eduardo Sharma MD Unavailable Rios Monteiro MD Unavailable Marcelo Artis PA-C Unavailable [phone] Rodrigo ManC Unavailable Jeana-Noreen Miles APRN SETTER JUICE PACKAGING MACHINES Unavailable Sudha Greene NP Primary Care Provider Agatha Null DPM, Podiatry /Foot and Ankle Surgery Unavailable [facility] Unavailable Reason for Visit * Reason Onset Date Comments Refill Request 08/30/2016 Metformin 500mg tab Encounter Details Date Type Department Care Team (Late st Contact Info) Description 08/30/2016 Refill [facility] [place] [address] [facility] [address] [place] [address] Vanda Guerrero MD [address] [facility] [place] [address] Refill Request (Metformin 500mg tab) Social History [...] scheduled 09/25/[address] Guerrero. Thanks Chema Allna Team Coodinator * Telephone Encounter - Vanda Guerrero MD - 08/31/2016 3:26 PM CDT Script sent - patient due for diabetes visit - please help her schedule * Telephone Encounter - Luz Marina Waters - 08/30/2016 10:51 AM CDT Metformin 500mg tab Last Written Prescription Date: 03/08/16 Last Fill Quantity: 180, # refills: 1 Last Office Visit with G, P or [facility] prescribing provider: 06/01/16 BP Readings [...] Total Score: 11 05/02/ 016 7:09 AM HOT WOUND SPRING PRODUCTION SUPERVISOR documented as of this encounter Care Teams Marine Surveyor Relationship Specialty Start Date End Date Vanda Guerrero MD [address] [place] [address] [place] [address] PCP - General Internal Medicine 04/08/15 01/08/19 Vanda Guerrero MD [address] [place] [address] [place] [address] PCP - Assigned PCP 07/24/16 06/15/18 Noreen Flores, SEAN SETTER JUICE PACKAGING MACHINES [address] [place] [address] [place] [address] PCP - Assigned PCP 06/16/18 08/13/18 Noreen Flores APRN SETTER JUICE PACKAGING MACHINES [address] [place] [address] [place] [address] PCP - General Nurse Practitioner 01/09/19 12/12/21 Sudha Greene, MAURICIO [address] [address] PCP - General 11/01/22 Noreen Flores APRN SETTER JUICE PACKAGING MACHINES [address] [place] [address] [place] [address] Assigned PCP 06/16/18 05/26/22 Kalyan Galvan Personal Advocate & Liaison (PAL) 08/08/19 04/26/21 Lashae Trevino [facility] [address] [id number] Pharmacist Pharmacist 10/14/19 12/01/20 Eduardo Sharma MD [address] [place] [address] Assigned Sleep Provider 04/02/2005/07 [place] [address] 872957 Assigned Musculoskeletal Provider 04/02/20 08/24/20 Marcelo Artis PA-C [address] [address] Assigned Musculoskeletal Provider 08/25/20 08/20/21 Rodrigo Man PA-C [address] [address] Assigned Surgical Provider 08/25/20 11/27/20 Noreen Flores APRN SETTER JUICE PACKAGING MACHINES [address] [place] [address] [place] [address] Assigned PCP 08/05/22 03/16/23 Agatha Null DPM, Podiatry/Foot and Ankle Surgery [id number] [place] [address] [facility] [address] [place] [address] Assigned Musculoskeletal Provider 11/04/22 Clinic - [place] [address] [place] [address] [place] [address] Assigned PCP 07/05/23 documented as of this encounter
--- OUTSIDE RECORDS SUMMARY | 2023-09-25 09:56 | XMS_ITS | Encounter Summary ---
Author Name Unknown Organization [place] Address [address] [place] [address] Care Team Providers Care Assembly Line Upholsterer Name Role Phone Vanda Guerrero MD Primary Care Provider [phone] Vanda Guerrero MD Unavailable [phone] Jeana-Noreen Miles APRN ROOM CLERK Unavailable [facility] APRN ROOM CLERK Unavailable Jeana-Noreen Miles MARKETING SUPPORT ASSISTANT ROOM CLERK Primary Car e Provider Kalyan Galvan Unavailable Unavailable Lashae Trevino [facility] Unavailable [phone] Eduardo Sharma MD Unavailable Rios Monteiro MD Unavailable Marcelo Artis PA-C Unavailable [phone] Rodrigo ManC Unavailable [phone] Jeana-Noreen Miles APRN ROOM CLERK Unavailable Sudha Greene NP Primary Care Provider Agatha Null DPM, Podiatry /Foot and Ankle Surgery Unavailable [facility] [place] [facility] Unavailable Encounter Details Date Type Department Care Team (Late st Contact Info) Description 02/17/2018 [facility] [address] [address] Liya Gonzalez RN Social History Tobacco Use [...] documented as of this encounter Care Teams Assembly Line Upholsterer Relationship Specialty Start Date End Date Vanda Guerrero MD [address] [place] [address] [place] [address] PCP - General Internal Medicine 04/08/15 01/08/19 Vanda Guerrero MD [address] [place] [address] [place] [address] PCP - Assigned PCP 07/24/16 06/15/18 Noreen Flores APRN ROOM CLERK [address] [place] [address] [place] [address] PCP - Assigned PCP 06/16/18 08/13/18 Noreen Flores APRN ROOM CLERK [address] [place] [address] [place] [address] PCP - General Nurse Practitioner 01/09/19 12/12/21 Sudha Greene NP [address] [address] PCP - General 11/01/22 Noreen Flores APRN ROOM CLERK [address] [place] [address] [place] [address] Assigned PCP 06/16/18 05/26/22 Kalyan Galvan Personal Advocate & Liaison (PAL) 08/08/19 04/26/21 Lashae Trevino, [facility] [address] [place] [address] [place] [id number] Pharmacist Pharmacist 10/14/19 12/01/20 Eduardo Sharma MD [address] [place] [address] [place] [address] Assigned Sleep Provider 04/02/2005/07 [place] [address] [place] [address] Assigned Musculoskeletal Provider 04/02/20 08/24/20 Marcelo Artis PA-C [address] [place] [address] Assigned Musculoskeletal Provider 08/25/20 08/20/21 Rodrigo Man PA-C [address] [place] [address] [place] [address] Assigned Surgical Provider 08/25/20 11/27/20 Noreen Flores APRN ROOM CLERK 3[address] [facility] [place] [address] Assigned PCP 08/05/22 03/16/23 Agatha Null DPM, Podiatry/Foot and Ankle Surgery [address] [place] [address] Assigned Musculoskeletal Provider 11/04/22 [facility] - [place] [facility] 3305 [facility] [place] [address] Assigned PCP 07/05/23 documented as of this encounter
--- OUTSIDE RECORDS SUMMARY | 2023-09-25 09:56 | XMS_ITS | Encounter Summary ---
Author Name Unknown Organization [place] Address [address] [place] [address] Care Team Providers Care Travel Director Name Role Phone Vanda Guerrero MD Primary Care Provider [phone] Vanda Guerrero MD Unavailable [phone] Jeana-Noreen Miles APRN PARKING CONTROL OFFICER Unavailable [facility]-Noreen Miles APRN PARKING CONTROL OFFICER Unavailable [facility]-JdNoreen castro APRN PARKING CONTROL OFFICER Primary Car e Provider Kalyan Galvan Unavailable Unavailable Lashae Trevino [facility] Unavailable Eduardo Sharma MD Unavailable Rios Monteiro MD Unavailable Marcelo Artis PA-C Unavailable [phone] Rodrigo ManC Unavailable [phone] Jeana-Noreen Miles APRN PARKING CONTROL OFFICER Unavailable Sudha Greene NP Primary Care Provider [phone] Agatha Null DPM, Podiatry /Foot and Ankle Surgery Unavailable [facility] Unavailable Reason for Visit * Reason Onset Date Comments Patient/info Update 07/18/2017 post C7-T1 i nterlaminar epidural steroid injection Encounter Details Date Type Department Care Team (Late st Contact Info) Description 07/18/2017 Telephone [facility] [place] [address] [facility] [address] [place], [place] [address] Jim Wang MD [address] [place] [place] [address] Patient/info Update (post C7-T1 interlaminar epidural steroid [...] encounter Miscellaneous Notes * Telephone Encounter - Todd Cervantes - 07/18/2017 [...] pt should call the nurse line at [phone]. 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 documented as of this encounter Care Teams Travel Director Relationship Specialty Start Date End Date Vanda Guerrero MD [address] [place] [address] [place] [address] PCP - General Internal Medicine 04/08/15 01/08/19 Vanda Guerrero MD [address] [place] [address] [place] [address] PCP - Assigned PCP 07/24/16 06/15/18 Noreen Flores APRN PARKING CONTROL OFFICER [address] [place] [address] [place] [address] PCP - Assigned PCP 06/16/18 08/13/18 Noreen Flores APRN PARKING CONTROL OFFICER [address] [place] [address] [place] [address] PCP - General Nurse Practitioner 01/09/19 12/12/21 Sudha Greene, MAURICIO [address] [address] PCP - General 11/01/22 Noreen Flores APRN PARKING CONTROL OFFICER [address] [place] [address] [place] [address] Assigned PCP 06/16/18 05/26/22 Kalyan Galvan Personal Advocate & Liaison (PAL) 08/08/19 04/26/21 Lashae Trevino, [facility] [address] [place] [address] Pharmacist Pharmacist 10/14/19 12/01/20 Eduardo Sharma MD [address] [place] [place] [address] Assigned Sleep Provider 04/02/2005/07 [place] [address] [facility] [address] [place] [address] Assigned Musculoskeletal Provider 04/02/20 08/24/20 Marcelo Artis PA-C [address] [facility] [address] [place] [address] Assigned Musculoskeletal Provider 08/25/20 08/20/21 Rodrigo Man PA-C [address] [place] [place] [address] Assigned Surgical Provider 08/25/20 11/27/20 Noreen Flores APRN PARKING CONTROL OFFICER [address] [place] [address] [place] [id number] Assigned PCP 08/05/22 03/16/23 Agatha Null DPM, Podiatry/Foot and Ankle Surgery [address] [place] [address] [address] [place] [address] Assigned Musculoskeletal Provider 11/04/22 [facility] 3[address] [facility] [place] [id number] Assigned PCP 07/05/23 documented as of this encounter
--- OUTSIDE RECORDS SUMMARY | 2023-09-25 09:56 | XMS_ITS | Encounter Summary ---
Author Name Unknown Organization [place] Address [address] [place] [address] Care Team Providers Care Global Commodity Manager Name Role Phone Vanda Guerrero MD Primary Care Provider [phone] Vanda Guerrero MD Unavailable [phone] Jeana-Noreen Miles APRN CHIEF PETROLEUM ENGINEER Unavailable [facility]-Noreen Miles APRN CHIEF PETROLEUM ENGINEER Unavailable [facility]-JdNoreen castro APRN CHIEF PETROLEUM ENGINEER Primary Car e Provider Kalyan Galvan Unavailable Unavailable Lashae Trevino [facility] Unavailable Eduardo Sharma MD Unavailable Rios Monteiro MD Unavailable Marcelo Artis PA-C Unavailable [phone] Rodrigo ManC Unavailable Jeana-JdNoreen castro APRN CHIEF PETROLEUM ENGINEER Unavailable Sudha Greene NP Primary Care Provider Agatha Null DPM, Podiatry /Foot and Ankle Surgery Unavailable [facility] [place] Unavailable Reason for Visit * Reason Comments Medication Refill ONETOUCH ULTRA test strip; simvastatin (ZOCOR) 20 MG tablet Encounter Details Date Type Department Care Team (Late st Contact Info) Description 12/21/2017 Refill [facility] [place] [address] [place] [address] Vanda Guerrero MD 3305 [facility] [place] [address] Medication Refill (ONETOUCH ULTRA test strip; simvastatin [...] 12/25/2017 10:56 AM CDT Prescription approved per [facility] Refill Protocol. 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 documented as of this encounter Care Teams Global Commodity Manager Relationship Specialty Start Date End Date Vanda Guerrero MD [address] [facility] [place] [address] PCP - General Internal Medicine 04/08/15 01/08/19 Vanda Guerrero MD 3948 [facility] [place] [address] PCP - Assigned PCP 07/24/16 06/15/18 Noreen Flores APRN CHIEF PETROLEUM ENGINEER [address] [place] [address] [place] [address] PCP - Assigned PCP 06/16/18 08/13/18 Noreen Flores APRN CHIEF PETROLEUM ENGINEER [address] [place] [address] [place] [address] PCP - General Nurse Practitioner 01/09/19 12/12/21 Sudha Greene, MAURICIO [address] [address] PCP - General 11/01/22 Noreen Flores APRN CHIEF PETROLEUM ENGINEER [address] [place] [address] [place] [address] Assigned PCP 06/16/18 05/26/22 Kalyan Galvan Personal Advocate & Liaison (PAL) 08/08/19 04/26/21 [facility] 1440 [facility] [place] [id number] Pharmacist Pharmacist 10/14/19 12/01/20 Eduardo Sharma MD [address] [facility] 103 [place] [id number] Assigned Sleep Provider 04/02/2005/07 [place] [address] [facility] 300 [place] 546[address] Assigned Musculoskeletal Provider 04/02/20 08/24/20 Marcelo Artis PA-C [address] [address] Assigned Musculoskeletal Provider 08/25/20 08/20/21 Rodrigo Man PA-C [address] [address] Assigned Surgical Provider 08/25/20 11/27/20 Noreen Flores APRN CHIEF PETROLEUM ENGINEER [address] [place] [address] [place] [address] Assigned PCP 08/05/22 03/16/23 Agatha Null DPM, Podiatry/Foot and Ankle Surgery [address] [place] [address] 300 [place] [address] Assigned Musculoskeletal Provider 11/04/22 [facility] [place] [facility] [address] [place], [place] [address] [address] Assigned PCP 07/05/23 documented as of this encounter
--- OUTSIDE RECORDS SUMMARY | 2023-09-25 09:56 | XMS_ITS | Encounter Summary ---
Author Name Unknown Organization [place] Address [address] [place] [address] Care Team Providers Care Multi Disciplined Language Analyst Name Role Phone Noreen Flores APRN PRECIPITATOR OPERATOR Unavailable Noreen Flores APRN PRECIPITATOR OPERATOR Primary Car e Provider Kalyan Galvan Unavailable Unavailable Lashae Trevino [facility] Unavailable Eduardo Sharma MD Unavailable Rios Monteiro MD Unavailable [phone] Marcelo Artis PA-C Unavailable Rodrigo Man PA-C Unavailable [phone] Noreen Flores APRN PRECIPITATOR OPERATOR Unavailable Sudha Greene NP Primary Care Provider Agatha Null DPM, Podiatry /Foot and Ankle Surgery Unavailable [facility] - [place] [place] [facility] Unavailable Encounter Details Date Type Department Care Team (Late st Contact Info) Description 05/31/2019 Myra Moya [facility] [place] [address] [place] [address] Noreen Flores APRN CNP [address] [facility] [place] [address] Chronic seasonal allergic [...] Angel Faria RN - 06/02/2019 8:06 AM EQUIPMENT VALIDATION ENGINEER Previous Rx did not successful e-scribe to pharmacy. Routing to PCP for approval. Please sent via fax. Multiple attempts in the past year with unsuccessful e-scribing. Route back to [facility] when completed. - Radu Faria RN Triage [facility] PMENT VALIDATION ENGINEER documented in this encounter Plan of [...] as of this encounter Care Teams Multi Disciplined Language Analyst Relationship Specialty Start Date End Date Noreen Flores APRN PRECIPITATOR OPERATOR [facility]5 [facility] [place] [address] PCP - General Nurse Practitioner 01/09/19 12/12/21 Sudha Greene NP [address] [address] PCP - General 11/01/22 Noreen Flores APRN PRECIPITATOR OPERATOR [address] [facility] [place] [address] Assigned PCP 06/16/18 05/26/22 Kalyan Galvan Personal Advocate & Liaison (PAL) 08/08/19 04/26/21 Lashae Trevino, [facility] [address] [place] [address] [place] [address] Pharmacist Pharmacist 10/14/19 12/01/20 Eduardo Sharma MD [address] [place] [place] [address] Assigned Sleep Provider 04/02/2005/07 [place] [address] [place] [address] Assigned Musculoskeletal Provider 04/02/20 08/24/20 Marcelo Artis PA-C [address] [place] [address] Assigned Musculoskeletal Provider 08/25/20 08/20/21 Rodrigo Man PA-C [address] [place] [address] Assigned Surgical Provider 08/25/20 11/27/20 Noreen Flores APRN PRECIPITATOR OPERATOR [facility]5 [facility] [place] [address] Assigned PCP 08/05/22 03/16/23 Agatha Null, DPNita, Podiatry/Foot and Ankle Surgery [address] [place] [address] Assigned Musculoskeletal Provider 11/04/22 [facility] - [place] [place] [address] [place] [address] Assigned PCP 07/05/23 documented as of this encounter
--- OUTSIDE RECORDS SUMMARY | 2023-09-25 09:56 | XMS_ITS | Encounter Summary ---
Author Name Unknown Organization [place] Address [address] [place] [address] Care Team Providers Care Pharmacy Informatics Specialist Name Role Phone Noreen Flores APRN MEDICAL OFFICER Unavailable Noreen Flores APRN MEDICAL OFFICER Primary Car e Provider Kalyan Galvan Unavailable Unavailable Lashae Trevino [facility] Unavailable Eduardo Sharma MD Unavailable Rios Monteiro MD Unavailable Marcelo Artis PA-C Unavailable Rodrigo Man PA-C Unavailable [phone] Noreen Flores APRN, CNP Unavailable Sudha Greene NP Primary Care Provider [phone] Agatha Null DPM, Podiatry /Foot and Ankle Surgery Unavailable [facility] [place] [place] [facility] Unavailable Encounter Details Date Type Department Care Team (Late st Contact Info) Description 05/30/2019 Myra Moya [facility] [address] [facility] [address] [place] [address] Christi Panda MA Social History [...] as of this encounter Care Teams Pharmacy Informatics Specialist Relationship Specialty Start Date End Date Noreen Flores APRN MEDICAL OFFICER [address] [facility] [place] [address] PCP - General Nurse Practitioner 01/09/19 12/12/21 Sudha Greene NP [address] [address] PCP - General 11/01/22 Noreen Flores APRN MEDICAL OFFICER [address] [place] [address] [place] [address] Assigned PCP 06/16/18 05/26/22 Kalyan Galvan Personal Advocate & Liaison (PAL) 08/08/19 04/26/21 Lashae Trevino, [facility] [address] [place] [address] Pharmacist Pharmacist 10/14/19 12/01/20 Eduardo Sharma MD [address] [place] [address] [place] [address] Assigned Sleep Provider 04/02/2005/07 [place] [id number] [place] [address] [address] [place] [address] Assigned Musculoskeletal Provider 04/02/20 08/24/20 Marcelo Artis [facility] [address] [facility] [address] [place] [address] Assigned Musculoskeletal Provider 08/25/20 08/20/21 Rodrigo Man PA-C [address] [facility] [address] [place] [address] Assigned Surgical Provider 08/25/20 11/27/20 Noreen Flores APRN MEDICAL OFFICER [address] [place] [address] [place] [id number] Assigned PCP 08/05/22 03/16/23 Agatha Null DPM, Podiatry/Foot and Ankle Surgery [address] [place] [address] [facility] [address] [place] [address] Assigned Musculoskeletal Provider 11/04/22 [facility] [place] [facility] 3[address] [facility] DAV[place] [id number] Assigned PCP 07/05/23 documented as of this encounter
--- OUTSIDE RECORDS SUMMARY | 2023-09-25 09:56 | XMS_ITS | Encounter Summary ---
Author Name Unknown Organization [place] Address [address] [place] [address] Care Team Providers Care Machine Tracer Name Role Phone Vanda Guerrero MD Primary Care Provider [phone] Vanda Guerrero MD Unavailable [phone] Jeana-Noreen Miles APRN PILOT PLANT RESEARCH TECHNICIAN Unavailable [facility] APRN PILOT PLANT RESEARCH TECHNICIAN Unavailable [facility]-JdNoreen castro APRN PILOT PLANT RESEARCH TECHNICIAN Primary Car e Provider Kalyan Galvan Unavailable Unavailable Lashae Trevino [facility] Unavailable Eduardo Sharma MD Unavailable Rios Monteiro MD Unavailable Marcelo Artis PA-C Unavailable Rodrigo Man PA-C Unavailable Jeana-JdNoreen castro APRN PILOT PLANT RESEARCH TECHNICIAN Unavailable Sudha Greene NP Primary Care Provider [phone] Agatha Null DPM, Podiatry /Foot and Ankle Surgery Unavailable [facility] Unavailable Reason for Visit * Reason Comments Medication Refill simvastatin (ZOCOR) 20 MG tablet Encounter Details Date Type Department Care Team (Late st Contact Info) Description 02/15/2017 Refill [facility] [address] [place] [address] Vanda Guerrero MD [address] [facility] [place] [address] Medication Refill (simvastatin (ZOCOR) 20 MG tablet) [...] refills: 3 Last Office Visit with [facility], [facility] or [facility] prescribing provider: 09/25/2016 Lab Results [...] 178 <200 mg/dL 02/17/2017 2:14 PM CDT [facility] Triglycerides 121 <150 mg/dL 02/17/2017 2:14 PM CDT [facility] Comment:Fasting specimen HDL Cholesterol 43(L) >49 mg/dL 7 2:14 PM CDT [facility] LDL Cholesterol Calculated 111(H) <100 mg/dL 02/17/2017 2:14 PM CDT [facility] Comment: Above desirable: ??100-129 mg/dl Borderline High: ??130-159 mg/dL High: ? 160-189 mg/dL Very high: ? >189 mg/dl Non HDL Cholesterol 135(H) <130 mg/dL 02/17/2017 2:14 PM CDT [facility] Comment: Above Desirable: ??130-159 mg/dl Borderline high: ??160-189 mg/dl High: ? 190-219 mg/dl Very high: ? >219 mg/dl Blood specimen (specimen) 02/17/2017 9:13 AM CDT 02/17/2017 9:18 AM CDT Vanda Guerrero MD LAB - BLOOD ORDER ILDEFONSO [facility] [address] [place] [address] documented in this encounter Visit Diagnoses Diagnosis [...] as of this encounter Care Teams Machine Tracer Relationship Specialty Start Date End Date Vanda Guerrero MD [address] [place] [address] [place] [address] PCP - General Internal Medicine 04/08/15 01/08/19 Vanda Guerrero MD [address] [place] [address] [place] [address] PCP - Assigned PCP 07/24/16 06/15/18 Noreen Flores APRN PILOT PLANT RESEARCH TECHNICIAN [address] [place] [address] [place] [address] PCP - Assigned PCP 06/16/18 08/13/18 Noreen Flores APRN PILOT PLANT RESEARCH TECHNICIAN [address] [place] [address] [place] [address] PCP - General Nurse Practitioner 01/09/19 12/12/21 Sudha Greene NP [address] [address] PCP - General 11/01/22 Noreen Flores APRN PILOT PLANT RESEARCH TECHNICIAN [address] [place] [address] [place] [address] Assigned PCP 06/16/18 05/26/22 Kalyan Galvan Personal Advocate & Liaison (PAL) 08/08/19 04/26/21 [facility] [place] [address] Pharmacist Pharmacist 10/14/19 12/01/20 Eduardo Sharma MD [address] [facility] 103 [place] [id number] Assigned Sleep Provider 04/02/2005/07 Rios Monteiro MD [address] [place] [address] 300 [place] [id number] Assigned Musculoskeletal Provider 04/02/20 08/24/20 Marcelo Artis PA-C [address] [place] [address] 300 [place] [address] Assigned Musculoskeletal Provider 08/25/20 08/20/21 Rodrigo Man PA-C [address] [facility] 450 [place] MD 980285 Assigned Surgical Provider 08/25/20 11/27/20 Noreen Flores APRN PILOT PLANT RESEARCH TECHNICIAN [address] [place] [address] [place] [address] Assigned PCP 08/05/22 03/16/23 Agatha Null DPM, Podiatry/Foot and Ankle Surgery [address] [place] [address] [address] [place] [address] Assigned Musculoskeletal Provider 11/04/22 [facility] [place] [place] [address] [facility] [place] [address] Assigned PCP 07/05/23 documented as of this encounter
--- OUTSIDE RECORDS SUMMARY | 2023-09-25 09:56 | XMS_ITS | Encounter Summary ---
Author Name Unknown Organization [facility] Address [address] [place] [address] Care Team Providers Care Ambulance Operations Supervisor Name Role Phone Noreen Flores APRN SURVIVAL EQUIPMENT REPAIRER Unavailable Noreen Flores APRN SURVIVAL EQUIPMENT REPAIRER Primary Car e Provider Kalyan Galvan Unavailable Unavailable Lashae Trevino [facility] Unavailable [phone] Eduardo Sharma MD Unavailable Rios Monteiro MD Unavailable Marcelo Artis PA-C Unavailable Rodrigo Man PA-C Unavailable [phone] Noreen Flores APRN, CNP Unavailable Sudha Greene NP Primary Care Provider Agatha Null DPM, Podiatry /Foot and Ankle Surgery Unavailable [facility] [place] [facility] Unavailable Encounter Details Date Type Department Care Team (Late st Contact Info) Description 01/22/2019 [facility]ra [facility] [place] [address] [facility] [address] [place] [address] Marcelo Trejo, PT [address] [place] [address] Social History Tobacco Use Types Packs/Day Years [...] documented as of this encounter Care Teams Ambulance Operations Supervisor Relationship Specialty Start Date End Date Noreen Flores APRN SURVIVAL EQUIPMENT REPAIRER [address] [place] [address] [place] [address] PCP - General Nurse Practitioner 01/09/19 12/12/21 Sudha Greene, [place] [address] [address] PCP - General 11/01/22 Noreen Flores APRN SURVIVAL EQUIPMENT REPAIRER [address] [place] [address] [place] [address] Assigned PCP 06/16/18 05/26/22 Kalyan Galvan Personal Advocate & Liaison (PAL) 08/08/19 04/26/21 Lashae Trevino, [facility] [place] [address] Pharmacist Pharmacist 10/14/19 12/01/20 Eduardo Sharma MD [address] [place] [address] [place] [address] Assigned Sleep Provider 04/02/2005/07 [place] [address] [facility] [address] [place] [address] Assigned Musculoskeletal Provider 04/02/20 08/24/20 Marcelo Artis PA-C [address] [facility] [address] [place] [address] Assigned Musculoskeletal Provider 08/25/20 08/20/21 Rodrigo Man PA-C [address] [place] [address] [place] [address] Assigned Surgical Provider 08/25/20 11/27/20 Noreen Flores APRN CNP [address] [place] [address] [place] [address] Assigned PCP 08/05/22 03/16/23 Agatha Null DPM, Podiatry/Foot and Ankle Surgery [address] [place] [address] [address] [place] [address] Assigned Musculoskeletal Provider 11/04/22 [facility] [address] [place] [address] [place] [address] Assigned PCP 07/05/23 documented as of this encounter
--- OUTSIDE RECORDS SUMMARY | 2023-09-25 09:56 | XMS_ITS | Encounter Summary ---
Author Name Unknown Organization [place] Address [address] [place] [address] Care Team Providers Care Chief Operator Synthesis Name Role Phone Vanda Guerrero MD Primary Care Provider [phone] Vanda Guerrero MD Unavailable [phone] Jeana-Noreen Miles APRN BUSINESS DEVELOPMENT EXECUTIVE Unavailable [facility] Miles APRN BUSINESS DEVELOPMENT EXECUTIVE Unavailable [facility]Jd[facility]en castro APRN BUSINESS DEVELOPMENT EXECUTIVE Primary Car e Provider Kalyan Galvan Unavailable Unavailable [facility] Trevino [facility] Unavailable Eduardo Sharma MD Unavailable Rios Monteiro MD Unavailable [phone] Marcelo Artis PA-C Unavailable [phone] Rodrigo ManC Unavailable Jeana-JdNoreen castro APRN BUSINESS DEVELOPMENT EXECUTIVE Unavailable Sudha Greene NP Primary Care Provider Agatha Null DPM, Podiatry /Foot and Ankle Surgery Unavailable 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 documented as of this encounter Care Teams Chief Operator Synthesis Relationship Specialty Start Date End Date Vanda Guerrero MD [address] [place] [address] [place] [address] PCP - General Internal Medicine 04/08/15 01/08/19 Vanda Guerrero MD [address] [place] [address] [place] [address] PCP - Assigned PCP 07/24/16 06/15/18 Noreen Flores APRN BUSINESS DEVELOPMENT EXECUTIVE [address] [place] [address] [place] [address] PCP - Assigned PCP 06/16/18 08/13/18 Noreen Flores APRN BUSINESS DEVELOPMENT EXECUTIVE [address] [facility] [place] [address] PCP - General Nurse Practitioner 01/09/19 12/12/21 Sudha Greene NP [address] [address] PCP - General 11/01/22 [facility]N BUSINESS DEVELOPMENT EXECUTIVE [address] [place] [address] [place] [address] Assigned PCP 06/16/18 05/26/22 Kalyan Galvan Personal Advocate & Liaison (PAL) 08/08/19 04/26/21 [facility] [address] [place] [address] [place] [address] Pharmacist Pharmacist 10/14/19 12/01/20 Eduardo Sharma MD [address] [place] [address] [place] [address] Assigned Sleep Provider 04/02/2005/07 [place] [address] [facility] 300 [place] [address] Assigned Musculoskeletal Provider 04/02/20 08/24/20 Marcelo Artis PA-C [address] [facility] [place] 300 [place] [address] Assigned Musculoskeletal Provider 08/25/20 08/20/21 Rodrigo Man PA-C [address] [place] [address] [place] [address] Assigned Surgical Provider 08/25/20 11/27/20 Noreen Flores APRN BUSINESS DEVELOPMENT EXECUTIVE [address] [facility] [place] [address] Assigned PCP 08/05/22 03/16/23 Agatha Null DPM, Podiatry/Foot and Ankle Surgery [address] [place] [address] Assigned Musculoskeletal Provider 11/04/22 [facility] [place] [address] [facility] [place] [address] Assigned PCP 07/05/23 documented as of this encounter
--- OUTSIDE RECORDS SUMMARY | 2023-09-25 09:56 | XMS_ITS | Encounter Summary ---
Author Name Unknown Organization [facility] Address [address] [place] [address] Care Team Providers Care Virtual Assistant Name Role Phone Vanda Guerrero MD Primary Care Provider [phone] Vanda Guerrero MD Unavailable [phone] Jeana-Noreen Miles APRN YOUT[employer]BER Unavailable JeanaNoreen Garcia APRN Y[employer]UBER Unavailable Jeana-JdNoreen castro APRN YOUTUBER Primary Car e Provider Kalyan Galvan Unavailable Unavailable Lashae Trevino [facility] Unavailable Eduardo Sharma MD Unavailable Rios Monteiro MD Unavailable [phone] Marcelo Artis PA-C Unavailable [phone] Rodrigo ManC Unavailable Jeana-JdNoreen castro APRN YOUTUBER Unavailable Sudha Greene NP Primary Care Provider [phone] Agatha NullM, Podiatry /Foot and Ankle Surgery Unavailable [facility] [place] [facility] Unavailable Encounter Details Date Type Department Care Team (Late st Contact Info) Description 12/05/2016 [facility] [address] [place] [address] Heath Sandy Rodríguezne, [facility] 14[address] [facility] [place] [address] Social History Tobacco Use Types Packs/Day Years [...] documented as of this encounter Care Teams Virtual Assistant Relationship Specialty Start Date End Date Vanda Guerrero MD [address] [place] [address] [place] [address] PCP - General Internal Medicine 04/08/15 01/08/19 Vanda Guerrero MD [address] [place] [address] [place] [address] PCP - Assigned PCP 07/24/16 06/15/18 Noreen Flores APRN Y[employer] [address] [place] [address] [place] [address] PCP - Assigned PCP 06/16/18 08/13/18 Noreen Flores APRN YOUT[employer] [address] [place] [address] [place] [address] PCP - General Nurse Practitioner 01/09/19 12/12/21 Sudha Greene NP [address] [address] PCP - General 11/01/22 Noreen Flores APRN YOUTUBER [address] [place] [address] [place] [address] Assigned PCP 06/16/18 05/26/22 Kalyan Galvan Personal Advocate & Liaison (PAL) 08/08/19 04/26/21 Lashae Trevino, [facility] [place] [id number] Pharmacist Pharmacist 10/14/19 12/01/20 Eduardo Sharma MD [address] [place] [address] [place] [address] Assigned Sleep Provider 04/02/2005/07 [place] [address] [place] [address] [place] [address] Assigned Musculoskeletal Provider 04/02/20 08/24/20 Marcelo Artis PA-C [address] [place] [address] [place] [address] Assigned Musculoskeletal Provider 08/25/20 08/20/21 Rodrigo Man PA-C [address] [place] [address] [place] [id number] Assigned Surgical Provider 08/25/20 11/27/20 Noreen Flores APRN YOUTUBER [address] [facility] [place] [address] Assigned PCP 08/05/22 03/16/23 Agatha Null DPM, Podiatry/Foot and Ankle Surgery [address] [place] [address] Assigned Musculoskeletal Provider 11/04/22 [facility] [place] [facility] [address] [facility] [place] [id number] Assigned PCP 07/05/23 documented as of this encounter
--- OUTSIDE RECORDS SUMMARY | 2023-09-25 09:56 | XMS_ITS | Encounter Summary ---
Author Name Unknown Organization [place] Address [address] [place] [address] Care Team Providers Care Digital Pre Press Operator Name Role Phone Vanda Guerrero MD Primary Care Provider [phone] Noreen Flores APRN ASSISTANT AUTO CENTER MANAGER Unavailable Noreen Flores APRN, CNP Primary Car e Provider Kalyan Galvan Unavailable Unavailable Lashae rTevino [facility] Unavailable [phone] Eduardo Sharma MD Unavailable Rios Monteiro MD Unavailable [phone] Marcelo Artis PA-C Unavailable Rodrigo Man PA-C Unavailable [phone] Noreen Flores APRN ASSISTANT AUTO CENTER MANAGER Unavailable Sudha Greene NP Primary Care Provider Agatha Null DPM, Podiatry /Foot and Ankle Surgery Unavailable [facility] [place] [place] [facility] Unavailable Encounter Details Date Type Department Care Team (Late st Contact Info) Description 12/05/2018 [facility] Lucy M[facility] [address] [facility] [address] [place] [address] Noreen Flores APRN CNP [address] [facility] [place] [address] Social History Tobacco Use Types Packs/Day Years [...] Depression Total Score: 7 06/25/19 9:49 AM ENDOCRINOLOGY SPECIALIST documented as of this encounter Care Teams Digital Pre Press Operator Relationship Specialty Start Date End Date Vanda Guerrero MD [address] [place] [address] [place] [address] PCP - General Internal Medicine 04/08/15 01/08/19 Noreen Flores APRN ASSISTANT AUTO CENTER MANAGER [address] [place] [address] [place] [address] PCP - General Nurse Practitioner 01/09/19 12/12/21 Sudha Greene NP [address] [address] PCP - General 11/01/22 Noreen Flores APRN ASSISTANT AUTO CENTER MANAGER [address] [place] [address] [place] [address] Assigned PCP 06/16/18 05/26/22 Kalyan Galvan Personal Advocate & Liaison (PAL) 08/08/19 04/26/21 Lashae Trevino [facility] 1440 [facility] [place] [address] Pharmacist Pharmacist 10/14/19 12/01/20 Eduardo Sharma MD [address] [place] [address] [place], [place] 833415 Assigned Sleep Provider 04/02/2005/07 [place] [address] [facility] 300 [place] [address] Assigned Musculoskeletal Provider 04/02/20 08/24/20 Marcelo Artis PA-C [address] [facility] 300 [place] [address] Assigned Musculoskeletal Provider 08/25/20 08/20/21 oRdrigo Man PA-C [address] [place] [address] [place], [place] 025765 Assigned Surgical Provider 08/25/20 11/27/20 Noreen Flores APRN ASSISTANT AUTO CENTER MANAGER [address] [place] [address] Assigned PCP 08/05/22 03/16/23 Agatha Null, DPM, Podiatry/Foot and Ankle Surgery [address] [facility] 300 [place], [place] 875[address] Assigned Musculoskeletal Provider 11/04/22 [facility] [place] [address] [address] Assigned PCP 07/05/23 documented as of this encounter
--- OUTSIDE RECORDS SUMMARY | 2023-09-25 09:56 | XMS_ITS | Encounter Summary ---
Author Name Unknown Organization [facility] Address [address] [place] [address] Care Team Providers Care Vending Machine Collector Name Role Phone Vanda Guerrero MD Primary Care Provider [phone] Vanda Guerrero MD Unavailable [phone] Jeana-Noreen Miles APRN CONVEYOR MAINTENANCE MECHANIC Unavailable JeanaNoreen Garcia APRN CONVEYOR MAINTENANCE MECHANIC Unavailable Jeana-JdNoreen castro APRN CONVEYOR MAINTENANCE MECHANIC Primary Car e Provider Kalyan Galvan Unavailable Unavailable Lashae Trevino [facility] Unavailable Eduardo Sharma MD Unavailable Rios Monteiro MD Unavailable [phone] Marcelo Artis PA-C Unavailable [phone] Rodrigo ManC Unavailable Jeana-JdNoreen castro APRN CONVEYOR MAINTENANCE MECHANIC Unavailable Sudha Greene NP Primary Care Provider Agatha Null DPM, Podiatry /Foot and Ankle Surgery Unavailable [facility] [place] [place] [facility] Unavailable Encounter Details Date Type Department Care Team (Late st Contact Info) Description 03/21/2017 [facility] [address] [facility] [address] [place] [address] Dusty Oneil [facility] Social History Tobacco Use Types Packs/Day Years [...] documented as of this encounter Care Teams Vending Machine Collector Relationship Specialty Start Date End Date Vanda Guerrero MD [address] [place] [address] [place] [address] PCP - General Internal Medicine 04/08/15 01/08/19 Vanda Guerrero MD [address] [place] [address] [place] [address] PCP - Assigned PCP 07/24/16 06/15/18 Noreen Flores APRN CONVEYOR MAINTENANCE MECHANIC [address] [place] [address] [place] [address] PCP - Assigned PCP 06/16/18 08/13/18 Noreen Flores APRN CONVEYOR MAINTENANCE MECHANIC [address] [place] [address] [place] [address] PCP - General Nurse Practitioner 01/09/19 12/12/21 Sudha Greene NP [address] [address] PCP - General 11/01/22 Noreen Flores APRN CONVEYOR MAINTENANCE MECHANIC [address] [facility] [place] [address] Assigned PCP 06/16/18 05/26/22 Kalyan Galvan Personal Advocate & Liaison (PAL) 08/08/19 04/26/21 Lashae Trevino [facility] [address] [facility] [place] [address] Pharmacist Pharmacist 10/14/19 12/01/20 Eduardo Sharma MD [address] [place] [address] [place] [address] Assigned Sleep Provider 04/02/2005/07 [place] [address] [facility] 300 [place] [address] Assigned Musculoskeletal Provider 04/02/20 08/24/20 Marcelo Artis PA-C [address] [facility] [place] [place] [address] Assigned Musculoskeletal Provider 08/25/20 08/20/21 Rodrigo Man PA-C [address] [place] [address] [place] [address] Assigned Surgical Provider 08/25/20 11/27/20 Noreen Flores APRN CONVEYOR MAINTENANCE MECHANIC 3305 [facility] [place] [address] Assigned PCP 08/05/22 03/16/23 Agatha Null DPM, Podiatry/Foot and Ankle Surgery [address] [facility] [place] [address] Assigned Musculoskeletal Provider 11/04/22 [facility] [place] [facility] 3[address] [facility] [place] [address] Assigned PCP 07/05/23 documented as of this encounter
--- OUTSIDE RECORDS SUMMARY | 2023-09-25 09:56 | XMS_ITS | Encounter Summary ---
Author Name Unknown Organization [place] Address [address] [place] [address] Care Team Providers Care Time Recorder Name Role Phone Noreen Flores APRN SWITCH TECHNICIAN Unavailable Noreen Flores APRN SWITCH TECHNICIAN Primary Car e Provider Kalyan Galvan Unavailable Unavailable Lashae Trevino [facility] Unavailable Eduardo Sharma MD Unavailable Rios Monteiro MD Unavailable [phone] Marcelo Artis PA-C Unavailable [phone] Rodrigo Man PA-C Unavailable [phone] Noreen Flores APRN, CNP Unavailable Sudha Greene NP Primary Care Provider Agatha Null DPM, Podiatry /Foot and Ankle Surgery Unavailable [facility] [place] [place] [facility] Unavailable Encounter Details Date Type Department Care Team (Late st Contact Info) Description 10/06/2019 [facility] Lucy Moya [facility] [address] [address] Patricia Bonilla Social History Tobacco Use [...] Answer Date Recorded PHQ-2 Score 2 07/25/2018 [facility] [place] of Occupat ional Health - Occupational Stress [...] Total Score: 9 08/09/19 20 7:03 AM A/C TECHNICIAN documented as of this encounter Care Teams Time Recorder Relationship Specialty Start Date End Date Noreen Flores APRN SWITCH TECHNICIAN [address] [place] [address] [place] [address] PCP - General Nurse Practitioner 01/09/19 12/12/21 Sudha Greene NP [address] [address] PCP - General 11/01/22 Noreen Flores APRN SWITCH TECHNICIAN [address] [place] [address] [place] [address] Assigned PCP 06/16/18 05/26/22 Kalyan Galvan Personal Advocate & Liaison (PAL) 08/08/19 04/26/21 Lashae Trevino [facility] 1440 [facility] [place] [address] Pharmacist Pharmacist 10/14/19 12/01/20 Eduardo Sharma MD [address] [facility] 103 [place] [address] Assigned Sleep Provider 04/02/2005/07 [place] [address] [facility] 300 [place] [address] Assigned Musculoskeletal Provider 04/02/20 08/24/20 Marcelo Artis PA-C 17[address] [facility] [address] [place] [address] Assigned Musculoskeletal Provider 08/25/20 08/20/21 Rodrigo Man PA-C 6545 [facility] 450 [place] [address] Assigned Surgical Provider 08/25/20 11/27/20 Noreen Flores APRN SWITCH TECHNICIAN [address] [place] [address] [place] [address] Assigned PCP 08/05/22 03/16/23 Agatha Null DPM, Podiatry/Foot and Ankle Surgery [address] [facility] 300 [place] [address] Assigned Musculoskeletal Provider 11/04/22 [facility] [place] [place] [facility] 3305 [facility] [place] [id number] Assigned PCP 07/05/23 documented as of this encounter
--- OUTSIDE RECORDS SUMMARY | 2023-09-25 09:56 | XMS_ITS | Encounter Summary ---
Author Name Unknown Organization [place] Address [address] [place] [address] Care Team Providers Care Launch Engineer Name Role Phone Vanda Guerrero MD Primary Care Provider [phone] Noreen Flores APRN MARKET RESEARCH EXECUTIVE Unavailable Noreen Flores APRN MARKET RESEARCH EXECUTIVE Primary Car e Provider Kalyan Galvan Unavailable Unavailable Lashae Trevino [facility] Unavailable [phone] Eduardo Sharma MD Unavailable Rios Monteiro MD Unavailable Marcelo Artis PA-C Unavailable [phone] Rodrigo Man PA-C Unavailable [phone] Noreen Flores APRN MARKET RESEARCH EXECUTIVE Unavailable Sudha Greene NP Primary Care Provider [phone] Agatha Null DPM, Podiatry /Foot and Ankle Surgery Unavailable [facility] [place] [facility] Unavailable Encounter Details Date Type Department Care Team (Late st Contact Info) Description 12/09/2018 [facility] [address] [facility] [address] [place] [address] Christi Panda MA Social History Tobacco [...] Depression Total Score: 7 06/25/19 9:49 AM LAMINATION BUILDER documented as of this encounter Care Teams Launch Engineer Relationship Specialty Start Date End Date Vanda Guerrero MD [address] [place] [address] [place] [address] PCP - General Internal Medicine 04/08/15 01/08/19 Noreen Flores APRN MARKET RESEARCH EXECUTIVE [address] [place] [address] [place] [address] PCP - General Nurse Practitioner 01/09/19 12/12/21 Sudha Greene NP [address] [address] PCP - General 11/01/22 Noreen Flores APRN MARKET RESEARCH EXECUTIVE [address] [place] [address] [place] [address] Assigned PCP 06/16/18 05/26/22 Kalyan Galvan Personal Advocate & Liaison (PAL) 08/08/19 04/26/21 [facility] [place] [address] Pharmacist Pharmacist 10/14/19 12/01/20 Eduardo Sharma MD [address] [place] [address] [place] 155375 Assigned Sleep Provider 04/02/2005/07 [place] [id number] [place] [address] [address] [place] [id number] Assigned Musculoskeletal Provider 04/02/20 08/24/20 Marcelo Artis PA-C [address] [place] [address] 300 [place] [address] Assigned Musculoskeletal Provider 08/25/20 08/20/21 Rodrigo Man PA-C [address] [place] 578265 Assigned Surgical Provider 08/25/20 11/27/20 Noreen Flores APRN MARKET RESEARCH EXECUTIVE [address] [place] [address] [place] [address] Assigned PCP 08/05/22 03/16/23 Agatha Null DPM, Podiatry/Foot and Ankle Surgery [address] [place] [place] [address] Assigned Musculoskeletal Provider 11/04/22 [facility] [place] [place] [facility] [address] [facility] [place] [address] Assigned PCP 07/05/23 documented as of this encounter
--- OUTSIDE RECORDS SUMMARY | 2023-09-25 09:56 | XMS_ITS | Encounter Summary ---
Author Name Unknown Organization [place] Address [address] [place] [address] Care Team Providers Care General Operations Manager Name Role Phone Vanda Guerrero MD Primary Care Provider [phone] Vanda Guerrero MD Unavailable [phone] Jeana-Noreen Miles APRN PRODUCTION LEAD Unavailable [facility]-Noreen Miles APRN PRODUCTION LEAD Unavailable [facility]-JdNoreen castro APRN PRODUCTION LEAD Primary Car e Provider Kalyan Galvan Unavailable Unavailable Lashae Trevino [facility] Unavailable Eduardo Sharma MD Unavailable Rios Monteiro MD Unavailable Marcelo Artis PA-C Unavailable [phone] Rodrigo ManC Unavailable [phone] Jeana-JdNoreen castro APRN PRODUCTION LEAD Unavailable Sudha Greene NP Primary Care Provider [phone] Agatha Null DPM, Podiatry /Foot and Ankle Surgery Unavailable [facility] [place] [facility] Unavailable Reason for Visit * Reason Onset Date Comments Appointment 11/30/2016 reminder Encounter Details Date Type Department Care Team (Late st Contact Info) Description 11/30/2016 MyC Medical Advice [facility] [place] [address] [facility] [address] [place] [phone] Kallie Celaya, RN Appointment (reminder) Social History [...] documented as of this encounter Care Teams General Operations Manager Relationship Specialty Start Date End Date Vanda Guerrero MD [address] [place] [address] [place] [address] PCP - General Internal Medicine 04/08/15 01/08/19 Vanda Guerrero MD [address] [place] [address] [place] [address] PCP - Assigned PCP 07/24/16 06/15/18 Noreen Flores APRN PRODUCTION LEAD [address] [place] [address] [place] [address] PCP - Assigned PCP 06/16/18 08/13/18 Noreen Flores APRN PRODUCTION LEAD [address] [place] [address] [place] [address] PCP - General Nurse Practitioner 01/09/19 12/12/21 Sudha Greene, MAURICIO [address] [address] PCP - General 11/01/22 Noreen Flores APRN PRODUCTION LEAD [address] [facility] [place] [address] Assigned PCP 06/16/18 05/26/22 Kalyan Galvan Personal Advocate & Liaison (PAL) 08/08/19 04/26/21 Lashae Trevino, [facility] [place] [address] Pharmacist Pharmacist 10/14/19 12/01/20 Eduardo Sharma MD [address] [place] [address] [place] [address]45 Assigned Sleep Provider 04/02/2005/07 [place] [address] [place] [address] [place] [address] Assigned Musculoskeletal Provider 04/02/20 08/24/20 Marcelo Artis PA-C [address] [place] [address] [place] [address] Assigned Musculoskeletal Provider 08/25/20 08/20/21 Rodrigo Man PA-C [address] [place] [address] [place] [id number] Assigned Surgical Provider 08/25/20 11/27/20 Noreen Flores APRN PRODUCTION LEAD [address] [facility] [place] [address] Assigned PCP 08/05/22 03/16/23 Agatha Null DPM, Podiatry/Foot and Ankle Surgery [address] [place] [address] Assigned Musculoskeletal Provider 11/04/22 [facility] [place] [place] [facility] [address] [facility] [place] [id number] Assigned PCP 07/05/23 documented as of this encounter
--- OUTSIDE RECORDS SUMMARY | 2023-09-25 09:56 | XMS_ITS | Encounter Summary ---
Author Name Unknown Organization [place] Address [address] [place] [address] Care Team Providers Care Photogrammetric Engineer Name Role Phone Vanda Guerrero MD Primary Care Provider [phone] Vanda Guerrero MD Unavailable [phone] Jeana-Noreen Miles APRN ADMITTING OFFICER Unavailable [facility]-Noreen Miles APRN ADMITTING OFFICER Unavailable [facility]-JdNoreen castro APRN ADMITTING OFFICER Primary Car e Provider Kalyan Galvan Unavailable Unavailable Lashae Trevino [facility] Unavailable [phone] Eduardo Sharma MD Unavailable Rios Monteiro MD Unavailable Marcelo ArtisC Unavailable [phone] Rodrigo Man-C Unavailable Jeana-Noreen Miles APRN ADMITTING OFFICER Unavailable Sudha Greene NP Primary Care Provider Agatha Null DPM, Podiatry /Foot and Ankle Surgery Unavailable [facility] Unavailable Reason for Referral * Diagnostic Imaging Ultrasound - Closed Specialty Diagnoses / Procedures Referred By Rylie t Referred To Contact Radiology. Diagnoses Alkaline phosphatase elevation Procedures [place] [address] [place] [address] [place] [address] Rh Ultrasound Rscc [address] [facility] [address] [place] [address] Referral ID Status Reason Start Date Expiration Date Visits Re quested Visits Authorized [id number] Closed 06/15/2017 06/15/2018 1 1 CONTROL OPERATOR Reason for Visit * Reason Onset Date Comments Lab Result Notice 06/15/2017 response to 06/12/17 result note Encounter Details Date Type Department Care Team (Late st Contact Info) Description 06/15/2017 MyC Medical Advice [facility] [address] [facility] [address] [place] [phone] Vanda Guerrero MD [address] [place] [address] [place] [id number] Lab Result Notice (response to 06/12/17 resu... [...] Kallie Celaya RN - 06/15/2017 4:26 PM PEST CONTROL OPERATOR Sent Idhasoft message. CONTROL OPERATOR * Telephone Encounter - Vanda Guerrero MD - 06/15/2017 2:48 PM PEST CONTROL OPERATOR Orders placed - please let patient know. CONTROL OPERATOR * Telephone Encounter - Kallie Celaya RN - 06/15/2017 2:31 PM PEST CONTROL OPERATOR Patient ok to restart Metformin & for US. T'd up. Please advise. CONTROL OPERATOR documented in this encounter Plan of Treatment Not on file documented as of this encounter Results * US Abdomen Limited (06/21/2017 10:11 AM PEST CONTROL OPERATOR) Anatomical Region Laterality Modality Abdomen/Pelvis Ultrasound Impressions 06/21/2017 10:49 AM PEST CONTROL OPERATOR IMPRESSION: ??Fatty infiltration of the liver. No gallstones or bile duct dilatation. BRIDGETTE LOZA MD Narrative 06/21/2017 10:49 AM PEST CONTROL OPERATOR ULTRASOUND ABDOMEN LIMITED 06/21/2017 10:11 AM HISTORY: [...] Depression Total Score: 12 018 1:02 PM PEST CONTROL OPERATOR documented as of this encounter Care Teams Photogrammetric Engineer Relationship Specialty Start Date End Date Vanda Guerrero MD [address] [place] [address] [place] [address] PCP - General Internal Medicine 04/08/15 01/08/19 Vanda Guerrero MD [address] [place] [address] [place] [address] PCP - Assigned PCP 07/24/16 06/15/18 Noreen Flores APRN ADMITTING OFFICER [address] [place] [address] [place] [address] PCP - Assigned PCP 06/16/18 08/13/18 Noreen Flores APRN ADMITTING OFFICER [address] [place] [address] [place] [address] PCP - General Nurse Practitioner 01/09/19 12/12/21 Sudha Greene, MAURICIO [address] [address] PCP - General 11/01/22 Noreen Flores APRN ADMITTING OFFICER [address] [place] [address] [place] [address] Assigned PCP 06/16/18 05/26/22 Kalyan Galvan Personal Advocate & Liaison (PAL) 08/08/19 04/26/21 Lashae Trevino, [facility] [address] [place] [address] Pharmacist Pharmacist 10/14/19 12/01/20 Eduardo Sharma MD [address] [place] [address] [place] [id number] Assigned Sleep Provider 04/02/2005/07 [place] [address] [facility] [address] [place], [place] 6714[address] Assigned Musculoskeletal Provider 04/02/20 08/24/20 Marcelo Artis PA-C [address] [place] [address] 300 [place] [address] Assigned Musculoskeletal Provider 08/25/20 08/20/21 Rodrigo Man PA-C [address] [place] [address] Assigned Surgical Provider 08/25/20 11/27/20 Noreen Flores APRN CNP [address] [place] [address] [place] [address] Assigned PCP 08/05/22 03/16/23 Agatha Null DPM, Podiatry/Foot and Ankle Surgery [address] [place] [address] [address] [place] [address] Assigned Musculoskeletal Provider 11/04/22 [facility] [place] [facility] [address] [facility] [place] [address] Assigned PCP 07/05/23 documented as of this encounter
--- OUTSIDE RECORDS SUMMARY | 2023-09-25 09:56 | XMS_ITS | Encounter Summary ---
Author Name Unknown Organization [place] Address [address] [place] [address] Care Team Providers Care Auto Clocks Repairer Name Role Phone Vanda Guerrero MD Primary Care Provider [phone] Vanda Guerrero MD Unavailable [phone] Jeana-Noreen Miles APRN EDUCATION PROFESSIONAL Unavailable [facility]-Noreen Miles APRN EDUCATION PROFESSIONAL Unavailable [facility]-JdNoreen castro APRN EDUCATION PROFESSIONAL Primary Car e Provider Kalyan Galvan Unavailable Unavailable Lashae Trevino [facility] Unavailable Eduardo Sharma MD Unavailable Rios Monteiro MD Unavailable Marcelo Artis PA-C Unavailable Rodrigo ManC Unavailable Jeana-JdNoreen castro APRN EDUCATION PROFESSIONAL Unavailable Sudha Greene NP Primary Care Provider Agatha Null DPM, Podiatry /Foot and Ankle Surgery Unavailable [facility] [place] [facility] Unavailable Reason for Visit * Reason Onset Date Comments Refill Request 03/04/2018 loratadine-pseud oePHEDrine ([facility] ALLERGY RELIEF-D) 10- 240 MG per 24 hr tablet Encounter Details Date Type Department Care Team (Late st Contact Info) Description 03/04/2018 Refill [facility] [place] [address] [place] [phone] Vanda Guerrero MD [address] [facility] [place] [address] Refill Request (loratadine-pseudoePHED rine ([facility] ALLERGY RELIEF-D) [...] and in station out basket or on MA/DOOR FRAME BUILDER/RN desk * Telephone Encounter - Kartik Javier [...] Drug not on the G, P or [facility] refill protocol or controlled substance documented in [...] as of this encounter Care Teams Auto Clocks Repairer Relationship Specialty Start Date End Date Vanda Guerrero MD [address] [place] [address] [place] [address] PCP - General Internal Medicine 04/08/15 01/08/19 Vanda Guerrero MD [address] [place] [address] [place] [address] PCP - Assigned PCP 07/24/16 06/15/18 Noreen Flores APRN EDUCATION PROFESSIONAL [address] [place] [address] [place] [address] PCP - Assigned PCP 06/16/18 08/13/18 Noreen Flores APRN EDUCATION PROFESSIONAL [address] [place] [address] [place] [address] PCP - General Nurse Practitioner 01/09/19 12/12/21 Sudha Greene NP [address] [address] PCP - General 11/01/22 Noreen Flores APRN EDUCATION PROFESSIONAL [address] [place] [address] [place] [address] Assigned PCP 06/16/18 05/26/22 Kalyan Galvan Personal Advocate & Liaison (PAL) 08/08/19 04/26/[address] [address] [facility] [place] [address] Pharmacist Pharmacist 10/14/19 12/01/20 Eduardo Sharma MD [address] [place] [place] [address] Assigned Sleep Provider 04/02/2005/07 [place] [address] [place] [address] Assigned Musculoskeletal Provider 04/02/20 08/24/20 Marcelo Artis PA-C [address] [place] [address] Assigned Musculoskeletal Provider 08/25/20 08/20/21 Rodrigo Man PA-C [address] [place] [address] [place] [address] Assigned Surgical Provider 08/25/20 11/27/20 Noreen Flores APRN EDUCATION PROFESSIONAL [address] [place] [address] [place] [address] Assigned PCP 08/05/22 03/16/23 Agatha Null, MARÍA, Podiatry/Foot and Ankle Surgery [address] [place] [address] Assigned Musculoskeletal Provider 11/04/22 [facility] [place] [address] [address] Assigned PCP 07/05/23 documented as of this encounter
--- OUTSIDE RECORDS SUMMARY | 2023-09-25 09:56 | XMS_ITS | Encounter Summary ---
Author Name Unknown Organization [place] Address [address] [place] [address] Care Team Providers Care Quality Improvement Manager Name Role Phone Noreen Flores APRN, CNP Unavailable Noreen Flores APRN, CNP Primary Car e Provider Kalyan Galvan Unavailable Unavailable Lashae Trevino [facility] Unavailable [phone] Eduardo Sharma MD Unavailable Rios Monteiro MD Unavailable Marcelo Artis PA-C Unavailable Rodrigo Man PA-C Unavailable [phone] Noreen Flores APRN, CNP Unavailable Sudha Greene NP Primary Care Provider Agatha Null DPM, Podiatry /Foot and Ankle Surgery Unavailable [facility] - [facility] [place] Unavailable Reason for Visit * Reason Onset Date Comments Medication Refill 04/25/2019 metFORMIN (GLU COPHAGE) 500 MG tablet Encounter Details Date Type Department Care Team (Late st Contact Info) Description 04/25/2019 Refill [facility] [address] [facility] [address] [place] [phone] Noreen Flores APRN CNP [address] [place] [address] Medication Refill (metFORMIN (GLUCOPHAGE) 500 MG tablet) [...] Kimberley Bryan RN - 04/28/2019 11:47 AM NURSE ADVISOR Routing refill request to provider for review/approval because: Labs not current: LDL, creatinine Due for appointment E ADVISOR * Telephone Encounter - Lara Villalba - [...] & Orders section of the refill encounter. E ADVISOR documented in this encounter Plan of Treatment [...] as of this encounter Care Teams Quality Improvement Manager Relationship Specialty Start Date End Date Noreen Flores APRN ENGINE MECHANIC [address] [place] [address] [place] [address] PCP - General Nurse Practitioner 01/09/19 12/12/21 Sudha Greene NP [facility] - [address] [place] [address] PCP - General 11/01/22 Noreen Flores APRN ENGINE MECHANIC [address] [place] [address] [place] [address] Assigned PCP 06/16/18 05/26/22 Kalyan Galvan Personal Advocate & Liaison (PAL) 08/08/19 04/26/21 [facility] [address] [place] [address] [place] [address] Pharmacist Pharmacist 10/14/19 12/01/20 Eduardo Sharma MD [address] [place] [address] Assigned Sleep Provider 04/02/2005/07 [place] [address] [place] [address] Assigned Musculoskeletal Provider 04/02/20 08/24/20 Marcelo Artis PA-C [address] [place] [address] Assigned Musculoskeletal Provider 08/25/20 08/20/21 Rodrigo Man PA-C [address] [place] 220[address] Assigned Surgical Provider 08/25/20 11/27/20 Noreen Flores APRN ENGINE MECHANIC [address] [place] [address] [place] [address] Assigned PCP 08/05/22 03/16/23 Agatha Null, MARÍA, Podiatry/Foot and Ankle Surgery [address] [place] [address] Assigned Musculoskeletal Provider 11/04/22 [facility] [place] [place] [address] [place] [id number] Assigned PCP 07/05/23 documented as of this encounter
--- OUTSIDE RECORDS SUMMARY | 2023-09-25 09:56 | XMS_ITS | Encounter Summary ---
Author Name Unknown Organization [place] Address [address] [place] [address] Care Team Providers Care Funeral Pre Arrangement Counselor Name Role Phone Vanda Guerrero MD Primary Care Provider [phone] Vanda Guerrero MD Unavailable [phone] Jeana-Noreen Miles APRN FIRER WATERTENDER Unavailable [facility]-Noreen Miles APRN FIRER WATERTENDER Unavailable [facility]-JdNoreen castro APRN FIRER WATERTENDER Primary Car e Provider Kalyan Galvan Unavailable Unavailable Lashae Trevino [facility] Unavailable [phone] Eduardo Sharma MD Unavailable Rios Monteiro MD Unavailable [phone] Marcelo Artis PA-C Unavailable [phone] Rodrigo Man PA-C Unavailable Jeana-Noreen Miles APRN FIRER WATERTENDER Unavailable Sudha Greene NP Primary Care Provider Agatha Null DPM, Podiatry /Foot and Ankle Surgery Unavailable [facility] [place] [facility] Unavailable Reason for Visit * Reason Comments Medication Refill zolpidem (AMBIEN) 5 MG tablet Encounter Details Date Type Department Care Team (Late st Contact Info) Description 02/20/2018 Refill [facility] [place] [address] [facility] [address] [place] [phone] Vanda Guerrero MD [address] [facility] [place] [address] Medication Refill (zolpidem (AMBIEN) 5 MG tablet) [...] and in station out basket or on MA/STATIONARY ENGINEER APPRENTICE/RN desk * Telephone Encounter - Gayathri Mcallister RN - 02/21/2018 3:33 PM CDT MANAGER OF [employer] SAL[employer] checked: patient refilled: 06/12, 07/07 and 10/04 [...] as of this encounter Care Teams Funeral Pre Arrangement Counselor Relationship Specialty Start Date End Date Vanda Guerrero MD [address] [place] [address] [place] [address] PCP - General Internal Medicine 04/08/15 01/08/19 Vanda Guerrero MD [address] [place] [address] [place] [address] PCP - Assigned PCP 07/24/16 06/15/18 Noreen Flores APRN FIRER WATERTENDER [address] [place] [address] [place] [address] PCP - Assigned PCP 06/16/18 08/13/18 Noreen Flores APRN FIRER WATERTENDER [address] [facility] [place] [address] PCP - General Nurse Practitioner 01/09/19 12/12/21 Sudha Greene NP [address] [address] PCP - General 11/01/22 Noreen Flores, SEAN FIRER WATERTENDER [address] [place] [address] [place] [address] Assigned PCP 06/16/18 05/26/22 Kalyan Galvan Personal Advocate & Liaison (PAL) 08/08/19 04/26/21 [facility] [address] [place] [address] [place] [address] Pharmacist Pharmacist 10/14/19 12/01/20 Eduardo Sharma MD [address] [place] 418285 Assigned Sleep Provider 04/02/2005/07 [place] [address] [facility] [address] [place] [address] Assigned Musculoskeletal Provider 04/02/20 08/24/20 Marcelo Artis PA-C [address] [facility] [address] [place], [place] 690[address] Assigned Musculoskeletal Provider 08/25/20 08/20/21 Rodrigo Man PA-C [address] [place] 569445 Assigned Surgical Provider 08/25/20 11/27/20 Noreen Flores APRN FIRER WATERTENDER [address] [facility] [place] [address] Assigned PCP 08/05/22 03/16/23 Agatha Null DPM, Podiatry/Foot and Ankle Surgery [address] [place] [address] Assigned Musculoskeletal Provider 11/04/22 [facility] [place] [facility] [address] [facility] [place] [id number] Assigned PCP 07/05/23 documented as of this encounter
--- OUTSIDE RECORDS SUMMARY | 2023-09-25 09:56 | XMS_ITS | Encounter Summary ---
Author Name Unknown Organization [place] Address [address] [place] [address] Care Team Providers Care Companion Name Role Phone Noreen Flores APRN, CNP Unavailable Noreen Flores APRN, CNP Primary Car e Provider Kalyan Galvan Unavailable Unavailable Lashae Trevino [facility] Unavailable [phone] Eduardo Sharma MD Unavailable Rios Monteiro MD Unavailable [phone] Marcelo Artis PA-C Unavailable [phone] Rodrigo Man PA-C Unavailable [phone] Noreen Flores APRN, CNP Unavailable Sudha Greene NP Primary Care Provider Agatha Null DPM, Podiatry /Foot and Ankle Surgery Unavailable [facility] Unavailable Reason for Visit * Reason Onset Date Comments Refill Request 08/08/2019 DULoxetine (CYMB EDIN) 30 MG capsule Encounter Details Date Type Department Care Team (Late st Contact Info) Description 08/08/2019 Refill [facility] [address] [facility] [address] [place] [address] Noreen Flores APRN CNP [address] [facility] [place] [place] [address] Refill Request (DULoxetine (CYMBALTA) 30 MG capsule) [...] Friends and Family Patient declined 08/08/2019 Attends Sikhism Services Patient declined 07/13 Active Member of [...] Answer Date Recorded PHQ-2 Score 2 07/25/2018 [facility] Occupat ional Health - Occupational Stress [...] Radha Manning RN - 08/13/2019 10:02 AM GASOLINE ATTENDANT Noreen: I spoke with the Pt. The Pt has been taking 1, 30 mg capsule, once per day. She does not want to goup to 60 mg. Yasmin sent this in for her. Radha Manning RN [facility] -- Triage Nurse LINE ATTENDANT * Telephone Encounter - Noreen Hills APRN CNP - 08/11/2019 9:41 AM CST Please verify that she was previously taking 1 tab twice a day. If so, please switch it to 1, 60mg tab, once per day. Pls notify her of the change. LINE ATTENDANT * Telephone Encounter - Gayathri Mcallister RN - 08/11/2019 9:38 AM GASOLINE ATTENDANT Please review sig for duloxetine, hydrochlorothiazide and metformin ( per review of last office visit 2000 mg daily of metformin, I am not sure about Duloxetine sig and dispense amount, Thank you) Gayathri Mcallister RN Message handled by Nurse Triage. LINE ATTENDANT * Telephone Encounter - Kartik Javier - 08/08/2019 5:46 PM CST Also Review Rx directions for Metformin hydrochloride 500 mg. Pharmacy is requesting clarification. LINE ATTENDANT * Telephone Encounter - Kartik Javier - 08/08/2019 2:39 PM CST Script Clarification: Rx has two sets of directions. Please send new Rx with the Proper Directions. Thanks. LINE ATTENDANT documented in this encounter Plan of [...] Total Score: 9 08/09/19 20 7:03 AM GASOLINE ATTENDANT documented as of this encounter Care Teams Companion Relationship Specialty Start Date End Date Noreen Flores APRN MANAGER CONTRACTING [facility] [place] [address] PCP - General Nurse Practitioner 01/09/19 12/12/21 Sudha Greene, MAURICIO [address] [address] PCP - General 11/01/22 Noreen Flores APRN MANAGER CONTRACTING [address] [place] [address] [place] [address] Assigned PCP 06/16/18 05/26/22 Kalyan Galvan Personal Advocate & Liaison (PAL) 08/08/19 04/26/21 [facility] [address] [place] [address] Pharmacist Pharmacist 10/14/19 12/01/20 Eduardo Sharma MD [address] [place] [address] [place] 623505 Assigned Sleep Provider 04/02/2005/07 [place] [address] [address] Assigned Musculoskeletal Provider 04/02/20 08/24/20 Marcelo Artis PA-C [address] [address] Assigned Musculoskeletal Provider 08/25/20 08/20/21 Rodrigo Man PA-C [address] [address] Assigned Surgical Provider 08/25/20 11/27/20 Noreen Flores APRN MANAGER CONTRACTING [address] [place] [address] [place] [address] Assigned PCP 08/05/22 03/16/23 Agatha Null DPM, Podiatry/Foot and Ankle Surgery [address] [facility] [address] [place] [address] Assigned Musculoskeletal Provider 11/04/22 [facility] [address] [place] [address] Assigned PCP 07/05/23 documented as of this encounter
--- OUTSIDE RECORDS SUMMARY | 2023-09-25 09:57 | XMS_ITS | Encounter Summary ---
Author Name Unknown Organization [place] Address [address] [place] [address] Care Team Providers Care Carton Forming Machine Adjuster Name Role Phone Selma Good APRN JUKEBOX CHECKER Primary Care Pro vider Vanda Guerrero MD Primary Care Provider [phone] Vanda Guerrero MD Unavailable [phone] Jeana-JdNoreen castro APRN, CNP Unavailable Jeana-JdNoreen castro APRN, CNP Unavailable Jeana-JdNoreen castro APRN JUKEBOX CHECKER Primary Car e Provider Kalyan Galvan Unavailable Unavailable Lashae Trevino [facility] Unavailable [phone] Eduardo Sharma MD Unavailable Rios Monteiro MD Unavailable [phone] Marcelo Artis-Aleyda Unavailable [phone] Rodrigo Man-C Unavailable [phone] Jeana-JdNoreen castro APRN JUKEBOX CHECKER Unavailable Sudha Greene NP Primary Care Provider Agatha NullM, Podiatry /Foot and Ankle Surgery Unavailable [facility] [place] [facility] Unavailable Reason for Visit * Reason Onset Date Comments Medication Question 10/06/2014 lisinopril Refill Request 10/06/2014 OT lancets and s trips Encounter Details Date Type Department Care Team (Late st Contact Info) Description 10/06/2014 MyC Medical Advice [facility] [place] [address] [facility] [place] [phone] Selma Good, SENIOR SALES ASSOCIATE [address] [place] [address] Medication Question (lisinopril); Refill R... Social History [...] PM CDT Appointment today with Kenyon GUEVARA, FORKLIFT MATERIAL HANDLER: 5. Hypertension goal BP (blood pressure) < [...] as of this encounter Care Teams Carton Forming Machine Adjuster Relationship Specialty Start Date End Date Selma Good APRN JUKEBOX CHECKER [facility] [place] [address] PCP - General 04/09/08 04/07/15 Vanda Guerrero MD [address] [place] [address] [place] [address] PCP - General Internal Medicine 04/08/15 01/08/19 Vanda Guerrero MD [address] [place] [address] [place] [address] PCP - Assigned PCP 07/24/16 06/15/18 Noreen Flores APRN JUKEBOX CHECKER [address] [place] [address] [place] [address] PCP - Assigned PCP 06/16/18 08/13/18 Noreen Flores APRN JUKEBOX CHECKER [address] [place] [address] [place] [address] PCP - General Nurse Practitioner 01/09/19 12/12/21 Sudha Greene NP [address] [address] PCP - General 11/01/22 Noreen Flores APRN JUKEBOX CHECKER [address] [facility] [place] [address] Assigned PCP 06/16/18 05/26/22 Kalyan Galvan Personal Advocate & Liaison (PAL) 08/08/19 04/26/21 [facility] [address] [place] [address] [place] [address] Pharmacist Pharmacist 10/14/19 12/01/20 Eduardo Sharma MD [address] [place] [address] [place] [address] Assigned Sleep Provider 04/02/2005/07 [place] [address] [place] [address] [place] [address] Assigned Musculoskeletal Provider 04/02/20 08/24/20 Marcelo Artis PA-C [address] [facility] [address] [place] [address] [place] [address] Assigned Musculoskeletal Provider 08/25/20 08/20/21 Rodrigo Man PA-C [address] [place] [place] [address] Assigned Surgical Provider 08/25/20 11/27/20 Noreen Flores APRN JUKEBOX CHECKER [facility] [place] [address] Assigned PCP 08/05/22 03/16/23 Agatha Null DPM, Podiatry/Foot and Ankle Surgery [address] [place] [address] Assigned Musculoskeletal Provider 11/04/22 [facility] [address] [place] [address] Assigned PCP 07/05/23 documented as of this encounter
--- OUTSIDE RECORDS SUMMARY | 2023-09-25 09:57 | XMS_ITS | Encounter Summary ---
Author Name Unknown Organization [place] Address [address] [place] [address] Care Team Providers Care Associate Project Manager Name Role Phone Selma Good APRN PHYSICAL THERAPY ASST Primary Care Pro vider Vanda Guerrero MD Primary Care Provider [phone] Vanda Guerrero MD Unavailable [phone] Jeana-JdNoreen castro APRN, CNP Unavailable Jeana-JdNoreen castro APRN, CNP Unavailable Jeana-JdNoreen castro APRN PHYSICAL THERAPY ASST Primary Car e Provider Kalyan Galvan Unavailable Unavailable Lashae Trevino [facility] Unavailable [phone] Eduardo Sharma MD Unavailable Rios Monteiro MD Unavailable [phone] Marcelo Artis-Aleyda Unavailable [phone] Rodrigo Man-C Unavailable [phone] Jeana-JdNoreen castro APRN PHYSICAL THERAPY ASST Unavailable Sudha Greene NP Primary Care Provider Agatha NullM, Podiatry /Foot and Ankle Surgery Unavailable [facility] [place] [facility] Unavailable Reason for Visit * Reason Onset Date Comments Medication Dosage Adjustment 08/18/2013 dec gavine Metformin Encounter Details Date Type Department Care Team (Late st Contact Info) Description 08/18/2013 [facility] [address] [place] [address] [place] [phone] Selma Good APRN PHYSICAL THERAPY ASST [address] [facility] [place] [address] Medication Dosage Adjustment (decrease Met... Social History [...] RN - 08/18/2013 2:08 PM CDT See Locish message below. I updated the medication list [...] as of this encounter Care Teams Associate Project Manager Relationship Specialty Start Date End Date Selma Good APRN PHYSICAL THERAPY ASST [facility]5 [facility] [place] [address] PCP - General 04/09/08 04/07/15 Vanda Guerrero MD [address] [place] [address] [place] [address] PCP - General Internal Medicine 04/08/15 01/08/19 Vanda Guerrero MD [address] [place] [address] [place] [address] PCP - Assigned PCP 07/24/16 06/15/18 Noreen Flores APRN PHYSICAL THERAPY ASST [address] [place] [address] [place] [address] PCP - Assigned PCP 06/16/18 08/13/18 Noreen Flores APRN PHYSICAL THERAPY ASST [address] [place] [address] [place] [address] PCP - General Nurse Practitioner 01/09/19 12/12/21 Sudha Greene, MAURICIO [address] [address] PCP - General 11/01/22 Noreen Flores, SEAN PHYSICAL THERAPY ASST [address] [place] [address] [place] [address] Assigned PCP 06/16/18 05/26/22 Kalyan Galvan Personal Advocate & Liaison (PAL) 08/08/19 04/26/21 Lashae Trevino [facility] [address] [place] [address] Pharmacist Pharmacist 10/14/19 12/01/20 Eduardo Sharma MD [address] [place] [address] [place] [address] Assigned Sleep Provider 04/02/2005/07 Rios Monteiro MD [address] [place] [address] Assigned Musculoskeletal Provider 04/02/20 08/24/20 Marcelo Artis PA-C [address] [place] [address] Assigned Musculoskeletal Provider 08/25/20 08/20/21 Rodrigo Man PA-C [address] [facility] [address] [place] [address] Assigned Surgical Provider 08/25/20 11/27/20 Noreen Flores APRN PHYSICAL THERAPY ASST [address] [place] [address] [place] [address] Assigned PCP 08/05/22 03/16/23 Agatha Null DPM, Podiatry/Foot and Ankle Surgery [address] [place] [address] 300 [place] [address] Assigned Musculoskeletal Provider 11/04/22 [facility] [address] [place] [address] [place] [address] Assigned PCP 07/05/23 documented as of this encounter
--- OUTSIDE RECORDS SUMMARY | 2023-09-25 09:57 | XMS_ITS | Encounter Summary ---
Author Name Unknown Organization [place] Address [address] [place] [address] Care Team Providers Care Bowling Floor Manager Name Role Phone Vanda Guerrero MD Primary Care Provider [phone] Vanda Guerrero MD Unavailable [phone] Jeana-Noreen Miles APRN CHARGE RN Unavailable [facility] Miles APRN CHARGE RN Unavailable [facility]-JdNoreen castro APRN CHARGE RN Primary Car e Provider Kalyan Galvan Unavailable Unavailable Lashae Trevino [facility] Unavailable [phone] Eduardo Sharma MD Unavailable Rios Monteiro MD Unavailable [phone] Marcelo Artis PA-C Unavailable [phone] Rodrigo ManC Unavailable Jaena-JdNoreen castro APRN CHARGE RN Unavailable Sudha Greene NP Primary Care Provider Agatha Null DPM, Podiatry /Foot and Ankle Surgery Unavailable [facility] [place] [facility] Unavailable Reason for Visit * Reason Onset Date Comments Derm Problem 01/20/2016 Encounter Details Date Type Department Care Team (Late st Contact Info) Description 01/20/2016 [facility] [address] [place] [address] [place] [phone] Vanda Guerrero MD [address] [place] [address] [place] [address] Derm Problem Social History Tobacco Use Types [...] documented as of this encounter Care Teams Bowling Floor Manager Relationship Specialty Start Date End Date Vanda Guerrero MD [address] [place] [address] [place] [address] PCP - General Internal Medicine 04/08/15 01/08/19 Vanda Guerrero MD [address] [place] [address] [place] [address] PCP - Assigned PCP 07/24/16 06/15/18 Noreen Flores APRN CHARGE RN [address] [place] [address] [place] [address] PCP - Assigned PCP 06/16/18 08/13/18 Noreen Flores APRN CHARGE RN [facility]5 [facility] [place] [address] PCP - General Nurse Practitioner 01/09/19 12/12/21 Sudha Greene NP [address] [address] PCP - General 11/01/22 Noreen Flores APRN CHARGE RN [address] [facility] [place] [address] Assigned PCP 06/16/18 05/26/22 Kalyan Galvan Personal Advocate & Liaison (PAL) 08/08/19 04/26/21 Lashae Trevino, [facility] [address] [place] [address] [place] [address] Pharmacist Pharmacist 10/14/19 12/01/20 Eduardo Sharma MD [address] [place] [address] Assigned Sleep Provider 04/02/2005/07 [place] [address] [facility] [address] [place] [address] Assigned Musculoskeletal Provider 04/02/20 08/24/20 Marcelo Artis PA-C [address] [facility] [address] [place] [address] Assigned Musculoskeletal Provider 08/25/20 08/20/21 Rodrigo Man PA-C [address] [place] [address] Assigned Surgical Provider 08/25/20 11/27/20 Noreen Flores APRN CHARGE RN [address] [facility] [place] [address] Assigned PCP 08/05/22 03/16/23 Agatha Null DPM, Podiatry/Foot and Ankle Surgery [address] [place] [address] Assigned Musculoskeletal Provider 11/04/22 [facility] 3[address] [facility] [place] [address] Assigned PCP 07/05/23 documented as of this encounter
--- OUTSIDE RECORDS SUMMARY | 2023-09-25 09:57 | XMS_ITS | Encounter Summary ---
Author Name Unknown Organization [place] Address [address] [place] [address] Care Team Providers Care Estate Manager Name Role Phone Selma Good APRN SHOT GRINDER OPERATOR Primary Care Pro vider Vanda Guerrero MD Primary Care Provider [phone] Vanda Guerrero MD Unavailable [phone] Jeana-JdNoreen castro APRN, CNP Unavailable Jeana-JdNoreen castro APRN, CNP Unavailable Jeana-JdNoreen castro APRN SHOT GRINDER OPERATOR Primary Car e Provider Kalyan Galvan Unavailable Unavailable Lashae Trevino [facility] Unavailable [phone] Eduardo Sharma MD Unavailable Rios Monteiro MD Unavailable [phone] Marcelo Artis-Aleyda Unavailable [phone] Rodrigo Man-C Unavailable [phone] Jeana-JdNoreen castro APRN SHOT GRINDER OPERATOR Unavailable Sudha Greene NP Primary Care Provider Agatha NullM, Podiatry /Foot and Ankle Surgery Unavailable [facility] [place] [facility] Unavailable Reason for Visit * Reason Onset Date Comments Vaginal Problem 05/24/2011 itchy -worse wit h cream Encounter Details Date Type Department Care Team (Late st Contact Info) Description 05/24/2011 MyC Medical Advice [address] [place] [phone] Selma Good, COMPUTER LAB AIDE SHOT GRINDER OPERATOR [address] [facility] [place] [address] Vaginal Problem (itchy -worse with cream ) [...] documented as of this encounter Care Teams Estate Manager Relationship Specialty Start Date End Date Selma Good, COMPUTER LAB AIDE SHOT GRINDER OPERATOR [address] [place] [address] [place] [address] PCP - General 04/09/08 04/07/15 Vanda Guerrero MD [address] [place] [address] [place] [address] PCP - General Internal Medicine 04/08/15 01/08/19 Vanda Guerrero MD [address] [place] [address] [place] [address] PCP - Assigned PCP 07/24/16 06/15/18 Noreen Flores APRN SHOT GRINDER OPERATOR [address] [facility] [place] [address] PCP - Assigned PCP 06/16/18 08/13/18 Noreen Flores APRN SHOT GRINDER OPERATOR [address] [place] [address] [place] [address] PCP - General Nurse Practitioner 01/09/19 12/12/21 Sudha Greene NP [address] [address] PCP - General 11/01/22 Noreen Flores APRN SHOT GRINDER OPERATOR [address] [place] [address] [place] [address] Assigned PCP 06/16/18 05/26/22 Kalyan Galvan Personal Advocate & Liaison (PAL) 08/08/19 04/26/21 [facility] [address] [place] [address] [place] [address] Pharmacist Pharmacist 10/14/19 12/01/20 Eduardo Sharma MD 6[address] [facility] 103 [place] [address] Assigned Sleep Provider 04/02/2005/07 [place] [address] [facility] 300 [place] [address] Assigned Musculoskeletal Provider 04/02/20 08/24/20 Marcelo Artis PA-C [address] [facility] [address] [place] [address] Assigned Musculoskeletal Provider 08/25/20 08/20/21 Rodrigo Man PA-C [address] [facility] [address] [place] [address] Assigned Surgical Provider 08/25/20 11/27/20 Noreen Flores APRN SHOT GRINDER OPERATOR 3305 [facility] [place] [id number] Assigned PCP 08/05/22 03/16/23 Agatha Null DPM, Podiatry/Foot and Ankle Surgery [address] [facility] [address] [place] [address] Assigned Musculoskeletal Provider 11/04/22 [facility] [place] [facility] 3305 [facility] [place] [id number] Assigned PCP 07/05/23 documented as of this encounter
--- OUTSIDE RECORDS SUMMARY | 2023-09-25 09:57 | XMS_ITS | Encounter Summary ---
Author Name Unknown Organization [place] Address [address] [place] [address] Care Team Providers Care Oil Field Worker Name Role Phone Selma Good APRN P 3 ARMAMENT/ORDNANCE IMA TECHNICIAN Primary Care Pro vider Vanda Guerrero MD Primary Care Provider [phone] Vanda Guerrero MD Unavailable [phone] Jeana-JdNoreen castro APRN, CNP Unavailable Jeana-JdNoreen castro APRN, CNP Unavailable Jeana-JdNoreen castro APRN P 3 ARMAMENT/ORDNANCE IMA TECHNICIAN Primary Car e Provider Kalyan Galvan Unavailable Unavailable Lashae Trevino [facility] Unavailable [phone] Eduardo Sharma MD Unavailable Rios Monteiro MD Unavailable [phone] Marcelo Artis PA-C Unavailable [phone] Rodrigo Man PA-C Unavailable [phone] Jeana-JdNoreen castro APRN P 3 ARMAMENT/ORDNANCE IMA TECHNICIAN Unavailable Sudha Greene NP Primary Care Provider Agatha NullM, Podiatry /Foot and Ankle Surgery Unavailable [facility] [place] [facility] Unavailable Encounter Details Date Type Department Care Team (Late st Contact Info) Description 07/12/2012 [facility] [place] [phone] Selma Good APRN P 3 ARMAMENT/ORDNANCE IMA TECHNICIAN [address] [place] [address] [place] [address] Social History Tobacco Use Types Packs/Day Years [...] as of this encounter Care Teams Oil Field Worker Relationship Specialty Start Date End Date Selma Good APRN P 3 ARMAMENT/ORDNANCE IMA TECHNICIAN [address] [place] [address] [place] [address] PCP - General 04/09/08 04/07/15 Vanda Guerrero MD [address] [place] [address] [place] [address] PCP - General Internal Medicine 04/08/15 01/08/19 Vanda Guerrero MD [address] [place] [address] [place] [address] PCP - Assigned PCP 07/24/16 06/15/18 Noreen Flores APRN P 3 ARMAMENT/ORDNANCE IMA TECHNICIAN [address] [place] [address] [place] [address] PCP - Assigned PCP 06/16/18 08/13/18 Noreen Flores APRN P 3 ARMAMENT/ORDNANCE IMA TECHNICIAN [address] [place] [address] [place] [address] PCP - General Nurse Practitioner 01/09/19 12/12/21 Sudha Greene, MAURICIO [address] [address] PCP - General 11/01/22 Noreen Flores APRN P 3 ARMAMENT/ORDNANCE IMA TECHNICIAN [address] [place] [address] [place] [address] Assigned PCP 06/16/18 05/26/22 Kalyan Galvan Personal Advocate & Liaison (PAL) 08/08/19 04/26/21 [facility] [address] [place] [address] [place] [phone] Pharmacist Pharmacist 10/14/19 12/01/20 Eduardo Sharma MD [address] [facility] [address] [place] [address] Assigned Sleep Provider 04/02/2005/07 [place] [address] [place] [address] [place] [address] [place] [address] Assigned Musculoskeletal Provider 04/02/20 08/24/20 Marcelo Artis, PA-C [address] [place] [facility] [address] [place] [address] [place] [address] Assigned Musculoskeletal Provider 08/25/20 08/20/21 Rodrigo Man PA-C [address] [place] [address] Assigned Surgical Provider 08/25/20 11/27/20 oNreen Flores APRN P 3 ARMAMENT/ORDNANCE IMA TECHNICIAN 3305 [facility] [place] [address] Assigned PCP 08/05/22 03/16/23 Agatha Null DPM, Podiatry/Foot and Ankle Surgery [address] [place] [address] [place] [address] Assigned Musculoskeletal Provider 11/04/22 [facility] 3[address] [facility] [place] [address] Assigned PCP 07/05/23 documented as of this encounter
--- OUTSIDE RECORDS SUMMARY | 2023-09-25 09:57 | XMS_ITS | Encounter Summary ---
Author Name Unknown Organization [place] Address [address] [place] [address] Care Team Providers Care Shoe Lining Fitter Name Role Phone Selma Good APRN VETERINARY LABORATORY TECHNICIAN Primary Care Pro vider Vanda Guerrero MD Primary Care Provider [phone] Vanda Guerrero MD Unavailable [phone] Jeana-JdNoreen castro APRN, CNP Unavailable Jeana-JdNoreen castro APRN, CNP Unavailable Jeana-JdNoreen castro APRN VETERINARY LABORATORY TECHNICIAN Primary Car e Provider Kalyan Galvan Unavailable Unavailable Lashae Trevino [facility] Unavailable [phone] Eduardo Sharma MD Unavailable Rios Monteiro MD Unavailable [phone] Marcelo Artis-Aleyda Unavailable [phone] Rodrigo Man-C Unavailable [phone] Jeana-JdNoreen castro APRN VETERINARY LABORATORY TECHNICIAN Unavailable Sudha Greene NP Primary Care Provider [phone] Agatha NullM, Podiatry /Foot and Ankle Surgery Unavailable [facility] Unavailable Reason for Visit * Reason Onset Date Comments Symptoms 03/07/2012 uti Encounter Details Date Type Department Care Team (Late st Contact Info) Description 03/07/2012 [facility] [address] [place] [address] [place] [address] Selma Good, SEAN VETERINARY LABORATORY TECHNICIAN [address] [facility] [place] [address] Symptoms (uti) Social History Tobacco Use Types [...] as of this encounter Care Teams Shoe Lining Fitter Relationship Specialty Start Date End Date Selma Good, SEAN VETERINARY LABORATORY TECHNICIAN [address] [place] [address] [place] [address] PCP - General 04/09/08 04/07/15 Vanda Guerrero MD [address] [place] [address] [place] [address] PCP - General Internal Medicine 04/08/15 01/08/19 Vanda Guerrero MD [address] [place] [address] [place] [address] PCP - Assigned PCP 07/24/16 06/15/18 Noreen Flores APRN VETERINARY LABORATORY TECHNICIAN [address] [place] [address] [place] [address] PCP - Assigned PCP 06/16/18 08/13/18 Noreen Flores APRN VETERINARY LABORATORY TECHNICIAN [address] [place] [address] [place] [address] PCP - General Nurse Practitioner 01/09/19 12/12/21 Sudha Greene NP [address] [address] PCP - General 11/01/22 Noreen Flores APRN VETERINARY LABORATORY TECHNICIAN [address] [place] [address] [place] [address] Assigned PCP 06/16/18 05/26/22 Kalyan Galvan Personal Advocate & Liaison (PAL) 08/08/19 04/26/21 [facility] [address] [place] [address] [place] [id number] Pharmacist Pharmacist 10/14/19 12/01/20 Eduardo Sharma MD [address] [facility] 103 [place] [address] Assigned Sleep Provider 04/02/2005/07 Rios Monteiro MD [address] [place] [address] 607207 Assigned Musculoskeletal Provider 04/02/20 08/24/20 Marcelo Artis, PA-C [address] [facility] 300 [place] [address] Assigned Musculoskeletal Provider 08/25/20 08/20/21 Rodrigo Man PA-C [address] [facility] 450 [place] [address] Assigned Surgical Provider 08/25/20 11/27/20 Noreen Flores APRN VETERINARY LABORATORY TECHNICIAN [address] [facility] [place] [address] Assigned PCP 08/05/22 03/16/23 Agatha Null DPM, Podiatry/Foot and Ankle Surgery [address] [place] [address] [place] [address] Assigned Musculoskeletal Provider 11/04/22 Clinic - [facility] Pringle [facility] [address] [facility] DAV[place] ORDOÑEZ [id number] Assigned PCP 07/05/23 documented as of this encounter
--- OUTSIDE RECORDS SUMMARY | 2023-09-25 09:57 | XMS_ITS | Encounter Summary ---
Author Name Unknown Organization [place] Address [address] [place] [address] Care Team Providers Care Market President Name Role Phone Selma Good APRN BRIDGE SAW OPERATOR Primary Care Pro vider Vanda Guerrero MD Primary Care Provider [phone] Vanda Guerrero MD Unavailable [phone] Jeana-JdNoreen castro APRN, CNP Unavailable Jeana-JdNoreen castro APRN, CNP Unavailable Jeana-JdNoreen castro APRN BRIDGE SAW OPERATOR Primary Car e Provider Kalyan Galvan Unavailable Unavailable Lashae Trevino [facility] Unavailable [phone] Eduardo Sharma MD Unavailable Rios Monteiro MD Unavailable [phone] Marcelo Artis-Aleyda Unavailable [phone] Rodrigo Man-C Unavailable [phone] Jeana-JdNoreen castro APRN BRIDGE SAW OPERATOR Unavailable Sudha Greene NP Primary Care Provider [phone] Agatha NullM, Podiatry /Foot and Ankle Surgery Unavailable [facility] [place] [facility] Unavailable Reason for Visit * Reason Onset Date Comments Foot Problems 03/19/2014 numb Encounter Details Date Type Department Care Team (Late st Contact Info) Description 03/19/2014 [facility] [address] [place] [address] [place] [address] Selma Good APRN BRIDGE SAW OPERATOR [address]305 [facility] [place] [address] Foot Problems (numb) Social History Tobacco Use [...] as of this encounter Care Teams Market President Relationship Specialty Start Date End Date Selma Good APRN BRIDGE SAW OPERATOR [address] [place] [address] [place] [address] PCP - General 04/09/08 04/07/15 Vanda Guerrero MD [address] [place] [address] [place] [address] PCP - General Internal Medicine 04/08/15 01/08/19 Vanda Guerrero MD [address] [place] [address] [place] [address] PCP - Assigned PCP 07/24/16 06/15/18 Noreen Flores APRN BRIDGE SAW OPERATOR [address] [place] [address] [place] [address] PCP - Assigned PCP 06/16/18 08/13/18 Noreen Flores APRN BRIDGE SAW OPERATOR [address] [place] [address] [place] [address] PCP - General Nurse Practitioner 01/09/19 12/12/21 Sudha Greene NP [address] [address] PCP - General 11/01/22 Noreen Flores APRN BRIDGE SAW OPERATOR [address] [place] [address] [place] [address] Assigned PCP 06/16/18 05/26/22 Kalyan Galvan Personal Advocate & Liaison (PAL) 08/08/19 04/26/21 [facility] [address] [place] [address] [place] [address] Pharmacist Pharmacist 10/14/19 12/01/20 Eduardo Sharma MD [address] [place] [address] Assigned Sleep Provider 04/02/2005/07 Rios Monteiro MD [address] [place] [address] 300 [place], [place] 229667 Assigned Musculoskeletal Provider 04/02/20 08/24/20 Marcelo Artis, PA-C [id number] [place] [address] 300 [place] [address] Assigned Musculoskeletal Provider 08/25/20 08/20/21 Rodrigo Man PA-C [address] [place]obi [facility] [address] [place] [address] Assigned Surgical Provider 08/25/20 11/27/20 Noreen Flores APRN BRIDGE SAW OPERATOR 3305 [facility] [place] [address] Assigned PCP 08/05/22 03/16/23 Agatha Null DPM, Podiatry/Foot and Ankle Surgery [address] [place] 300 [place] [address] Assigned Musculoskeletal Provider 11/04/22 Clinic - [facility] Pring[facility] 3305 [facility] [place] [id number] Assigned PCP 07/05/23 documented as of this encounter
--- OUTSIDE RECORDS SUMMARY | 2023-09-25 09:57 | XMS_ITS | Encounter Summary ---
Author Name Unknown Organization [place] Address [address] [place] [address] Care Team Providers Care Fireperson Name Role Phone Vanda Guerrero MD Primary Care Provider [phone] Vanda Guerrero MD Unavailable [phone] Jeana-Noreen Miles APRN SENIOR HEALTH CONSULTANT Unavailable [facility] Miles APRN SENIOR HEALTH CONSULTANT Unavailable [facility]-JdNoreen castro APRN SENIOR HEALTH CONSULTANT Primary Car e Provider Kalyan Galvan Unavailable Unavailable Lashae Trevino [facility] Unavailable Eduardo Sharma MD Unavailable Rios Monetiro MD Unavailable Marcelo Artis PA-C Unavailable [phone] Rodrigo ManC Unavailable Jeana-JdNoreen castro APRN SENIOR HEALTH CONSULTANT Unavailable Sudha Greene NP Primary Care Provider Agatha Null DPM, Podiatry /Foot and Ankle Surgery Unavailable [facility] [facility] Unavailable Reason for Visit * Reason Onset Date Comments Musculoskeletal Problem 06/13/2016 Travel a dvice Encounter Details Date Type Department Care Team (Latest Contact Info) Description 06/13/2016 MyC Medical Advice [facility] [address] [place] [address] Agatha Null DPM, Podiatry/Foot and Ankle Surgery [address] [place] [address] Musculoskeletal Problem (Travel advice) Social History Tobacco [...] to provider for review. Iain Barone RN BAG ASSEMBLER documented in this encounter Plan of [...] Total Score: 11 05/02/ 016 7:09 AM ICE BAG ASSEMBLER documented as of this encounter Care Teams Fireperson Relationship Specialty Start Date End Date Vanda Guerrero MD [address] [facility] [place] [address] PCP - General Internal Medicine 04/08/15 01/08/19 Vanda Guerrero MD [address] [facility] [place] [address] PCP - Assigned PCP 07/24/16 06/15/18 Noreen Flores APRN SENIOR HEALTH CONSULTANT [address] [place] [address] [place] [address] PCP - Assigned PCP 06/16/18 08/13/18 Noreen Flores APRN SENIOR HEALTH CONSULTANT [address] [place] [address] [place] [address] PCP - General Nurse Practitioner 01/09/19 12/12/21 Sudha Greene, [place] [address] [address] PCP - General 11/01/22 Noreen Flores APRN SENIOR HEALTH CONSULTANT [address] [place] [address] [place] [address] Assigned PCP 06/16/18 05/26/22 Kalyan Galvan Personal Advocate & Liaison (PAL) 08/08/19 04/26/21 Lashae Trevino, [facility] 1440 [facility] [place] [address] Pharmacist Pharmacist 10/14/19 12/01/20 Eduardo Sharma MD [address] [facility] 103 [place] [address] Assigned Sleep Provider 04/02/2005/07 [place] [address] [facility] 300 [place] [address] Assigned Musculoskeletal Provider 04/02/20 08/24/20 ChandraMarcelo PA-C [address] [facility] 300 [place] [address] Assigned Musculoskeletal Provider 08/25/20 08/20/21 Rodrigo Man PA-C [address] [facility] [address] [place] [address] Assigned Surgical Provider 08/25/20 11/27/20 Noreen Flores APRN SENIOR HEALTH CONSULTANT [address] [facility] DVA[place] GR[place] [id number] Assigned PCP 08/05/22 03/16/23 Agatha Null DPM, Podiatry/Foot and Ankle Surgery [address] [facility] [address] [place] [address] Assigned Musculoskeletal Provider 11/04/22 [facility] [address] [facility] DAVID ORDOÑEZ [id number] Assigned PCP 07/05/23 documented as of this encounter
--- OUTSIDE RECORDS SUMMARY | 2023-09-25 09:57 | XMS_ITS | Encounter Summary ---
Author Name Unknown Organization [place] Address [address] [place] [address] Care Team Providers Care Bung Remover Name Role Phone Selma Good APRN ELECTRONIC PARTS DESIGNER Primary Care Pro vider Vanda Guerrero MD Primary Care Provider [phone] Vanda Guerrero MD Unavailable [phone] Jeana-JdNoreen castro APRN, CNP Unavailable Jeana-JdNoreen castro APRN, CNP Unavailable Jeana-JdNoreen castro APRN ELECTRONIC PARTS DESIGNER Primary Car e Provider Kalyan Galvan Unavailable Unavailable Lashae Trevino [facility] Unavailable [phone] Eduardo Sharma MD Unavailable Rios Monteiro MD Unavailable [phone] Marcelo Artis-Aleyda Unavailable [phone] Rodrigo Man-C Unavailable [phone] Jeana-JdNoreen castro APRN ELECTRONIC PARTS DESIGNER Unavailable Sudha Greene NP Primary Care Provider Agatha NullM, Podiatry /Foot and Ankle Surgery Unavailable [facility] [place] [facility] Unavailable Reason for Visit * Reason Onset Date Comments Medication Problem 06/22/2014 amitriptline side effects Encounter Details Date Type Department Care Team (Late st Contact Info) Description 06/22/2014 [facility] [address] [place] [address] [place] [phone] Selma Good, MANAGER SUPPLY ELECTRONIC PARTS DESIGNER [address] [facility] [place] [address] Medication Problem (amitriptline side effe... Social History [...] documented as of this encounter Care Teams Bung Remover Relationship Specialty Start Date End Date Selma Good, SEAN ELECTRONIC PARTS DESIGNER [address] [place] [address] [place] [address] PCP - General 04/09/08 04/07/15 Vanda Guerrero MD [address] [place] [address] [place] [address] PCP - General Internal Medicine 04/08/15 01/08/19 Vanda Guerrero MD [address] [place] [address] [place] [address] PCP - Assigned PCP 07/24/16 06/15/18 Noreen Flores APRN ELECTRONIC PARTS DESIGNER [address] [facility] [place] [address] PCP - Assigned PCP 06/16/18 08/13/18 Noreen Flores APRN ELECTRONIC PARTS DESIGNER [address] [facility] [place] [address] PCP - General Nurse Practitioner 01/09/19 12/12/21 Sudha Greene, MAURICIO [address] [address] PCP - General 11/01/22 Noreen Flores APRN ELECTRONIC PARTS DESIGNER [address] [place] [address] [place] [address] Assigned PCP 06/16/18 05/26/22 Kalyan Galvan Personal Advocate & Liaison (PAL) 08/08/19 04/26/21 Lashae Trevino, [facility] 1440 [facility] [place] [address] Pharmacist Pharmacist 10/14/19 12/01/20 Eduardo Sharma MD [address] [facility] [address] [place] [address] Assigned Sleep Provider 04/02/2005/07 [place] [address] [facility] 300 [place] [address] Assigned Musculoskeletal Provider 04/02/20 08/24/20 Marcelo Artis PA-C [address] [facility] [address] [place] [address] Assigned Musculoskeletal Provider 08/25/20 08/20/21 Rodrigo Man PA-C [facility] [address] [place] [address] Assigned Surgical Provider 08/25/20 11/27/20 Noreen Flores APRN ELECTRONIC PARTS DESIGNER [address] [facility] DAV[place] [id number] Assigned PCP 08/05/22 03/16/23 Agatha Null DPM, Podiatry/Foot and Ankle Surgery [address] [facility] [address] [place] [address] Assigned Musculoskeletal Provider 11/04/22 Clinic - N[facility] Pringle [facility] 3305 [facility] DAV[place] PRING[place] [id number] Assigned PCP 07/05/23 documented as of this encounter
--- OUTSIDE RECORDS SUMMARY | 2023-09-25 09:57 | XMS_ITS | Encounter Summary ---
Author Name Unknown Organization [place] Address [address] [place] [address] Care Team Providers Care Stone Polisher Machine Name Role Phone Vanda Guerrero MD Primary Care Provider [phone] Vanda Guerrero MD Unavailable [phone] Jeana-Noreen Miles APRN DROP SHIPMENT CLERK Unavailable [facility] APRN DROP SHIPMENT CLERK Unavailable [facility]-JdNoreen castro APRN DROP SHIPMENT CLERK Primary Car e Provider Kalyan Galvan Unavailable Unavailable Lashae Trevino [facility] Unavailable Eduardo Sharma MD Unavailable Rios Monteiro MD Unavailable Marcelo Artis PA-C Unavailable Rodrigo ManC Unavailable Jeana-JdNoreen castro APRN DROP SHIPMENT CLERK Unavailable Sudha Greene NP Primary Care Provider Agatha Null DPM, Podiatry /Foot and Ankle Surgery Unavailable [facility] Unavailable Reason for Visit * Reason Onset Date Comments Clarification 05/19/2016 Encounter Details Date Type Department Care Team (Late st Contact Info) Description 05/19/[address] [facility] [address] [place] [address] Agatha Null, DPM, Podiatry/Foot and Ankle Surgery [address] [place] [address] Clarification Social History Tobacco Use Types Packs/Day [...] Total Score: 11 05/02/ 016 7:09 AM SLAB PULLER documented as of this encounter Care Teams Stone Polisher Machine Relationship Specialty Start Date End Date Vanda Guerrero MD [address] [place] [address] [place] [address] PCP - General Internal Medicine 04/08/15 01/08/19 Vanda Guerrero MD [address] [place] [address] [place] [address] PCP - Assigned PCP 07/24/16 06/15/18 Noreen Flores APRN CNP [address] [place] [address] [place] [address] PCP - Assigned PCP 06/16/18 08/13/18 Noreen Flores APRN DROP SHIPMENT CLERK 3305 [facility] [place] [address] PCP - General Nurse Practitioner 01/09/19 12/12/21 Sudha Greene NP [address] [address] PCP - General 11/01/22 Noreen Flores APRN DROP SHIPMENT CLERK [address] [place] [address] [place] [address] Assigned PCP 06/16/18 05/26/22 Kalyan Galvan Personal Advocate & Liaison (PAL) 08/08/19 04/26/21 [facility] [address] [place] [address] [place] [address] Pharmacist Pharmacist 10/14/19 12/01/20 Eduardo Sharma MD [address] [place] [address] [place] [address] Assigned Sleep Provider 04/02/2005/07 [place] [address] [facility] [place] 300 [place] [address] Assigned Musculoskeletal Provider 04/02/20 08/24/20 Marcelo Artis PA-C [address] [facility] [place] [address] [place] [address] Assigned Musculoskeletal Provider 08/25/20 08/20/21 Rodrigo Man PA-C [address] [place] [address] [place] [address] Assigned Surgical Provider 08/25/20 11/27/20 Noreen Flores APRN DROP SHIPMENT CLERK [address]305 [facility] [place] [address] Assigned PCP 08/05/22 03/16/23 Agatha Null DPM, Podiatry/Foot and Ankle Surgery [address] [place] [address] [place] [address] Assigned Musculoskeletal Provider 11/04/22 [facility] P[facility] [address] [facility] [address] [place] [address] Assigned PCP 07/05/23 documented as of this encounter
--- OUTSIDE RECORDS SUMMARY | 2023-09-25 09:57 | XMS_ITS | Encounter Summary ---
Author Name Unknown Organization [place] Address [address] [place] [address] Care Team Providers Care Work Study Student Name Role Phone Selma Good APRN SHRIMP HEADER Primary Care Pro vider Vanda Guerrero MD Primary Care Provider [phone] Vanda Guerrero MD Unavailable [phone] Jeana-JdNoreen castro APRN, CNP Unavailable Jeana-JdNoreen castro APRN, CNP Unavailable Jeana-JdNoreen castro APRN SHRIMP HEADER Primary Car e Provider Kalyan Galvan Unavailable Unavailable Lashae Trevino [facility] Unavailable [phone] Eduardo Sharma MD Unavailable Rios Monteiro MD Unavailable [phone] Marcelo Artis-Aleyda Unavailable [phone] Rodrigo Man-C Unavailable [phone] Jeana-JdNoreen castro APRN SHRIMP HEADER Unavailable Sudha Greene NP Primary Care Provider Agatha NullM, Podiatry /Foot and Ankle Surgery Unavailable [facility] Unavailable Reason for Visit * Reason Onset Date Comments Medication Question 11/23/2011 topamax Encounter Details Date Type Department Care Team (Late st Contact Info) Description 11/23/2011 [facility] [address] [place] [address] [place] [address] Selma Good APRN SHRIMP HEADER [address] [facility] [place] [address] Medication Question (topamax) Social History Tobacco Use [...] documented as of this encounter Care Teams Work Study Student Relationship Specialty Start Date End Date Selma Good APRN SHRIMP HEADER [address] [place] [address] [place] [address] PCP - General 04/09/08 04/07/15 Vanda Guerrero MD [address] [place] [address] [place] [address] PCP - General Internal Medicine 04/08/15 01/08/19 Vanda Guerrero MD [address] [place] [address] [place] [address] PCP - Assigned PCP 07/24/16 06/15/18 Noreen Flores APRN SHRIMP HEADER [address] [place] [address] [place] [address] PCP - Assigned PCP 06/16/18 08/13/18 Noreen Flores APRN SHRIMP HEADER [address] [place] [address] [place] [address] PCP - General Nurse Practitioner 01/09/19 12/12/21 Sudha Greene NP [address] [address] PCP - General 11/01/22 Noreen Flores APRN SHRIMP HEADER [address] [place] [address] [place] [address] Assigned PCP 06/16/18 05/26/22 Kalyan Galvan Personal Advocate & Liaison (PAL) 08/08/19 04/26/21 [facility] [address] [place] [address] [place] [address] Pharmacist Pharmacist 10/14/19 12/01/20 Eduardo Sharma MD [address] [address] Assigned Sleep Provider 04/02/2005/07 Rios Monteiro MD [address] [place] [address] Assigned Musculoskeletal Provider 04/02/20 08/24/20 Marcelo Artis, PA-C [address] [facility] [address] [place] [address] Assigned Musculoskeletal Provider 08/25/20 08/20/21 Rodrigo Man PA-C [address] [place]obi [facility] 450 [place] [address] Assigned Surgical Provider 08/25/20 11/27/20 Noreen Flores APRN SHRIMP HEADER 3305 [facility] [place] [address] Assigned PCP 08/05/22 03/16/23 Agatha Null DPM, Podiatry/Foot and Ankle Surgery [address] [facility] [address] [place] [address] Assigned Musculoskeletal Provider 11/04/22 Clinic - [facility] Pring[facility] 3305 [facility] DAV[place] [id number] Assigned PCP 07/05/23 documented as of this encounter
--- OUTSIDE RECORDS SUMMARY | 2023-09-25 09:57 | XMS_ITS | Encounter Summary ---
Author Name Unknown Organization [place] Address [address] [place] [address] Care Team Providers Care Biodiesel Production Associate Name Role Phone Selma Good APRN SUSTAINABILITY PROJECT MANAGER Primary Care Pro vider Vanda Guerrero MD Primary Care Provider [phone] Vanda Guerrero MD Unavailable [phone] Jeana-JdNoreen castro APRN, CNP Unavailable Jeana-JdNoreen castro APRN, CNP Unavailable Jeana-JdNoreen castro APRN SUSTAINABILITY PROJECT MANAGER Primary Car e Provider Kalyan Galvan Unavailable Unavailable Lashae Trevino [facility] Unavailable [phone] Eduardo Sharma MD Unavailable Rios Monteiro MD Unavailable [phone] Marcelo Artis PA-C Unavailable [phone] Rodrigo Man PA-C Unavailable [phone] Jaena-JdNoreen castro APRN SUSTAINABILITY PROJECT MANAGER Unavailable Sudha Greene NP Primary Care Provider Agatha NullM, Podiatry /Foot and Ankle Surgery Unavailable [facility] Unavailable Encounter Details Date Type Department Care Team (Late st Contact Info) Description 08/17/2014 MyC Medical Advice [facility] [id number] [place] [id number] Day Greene APRN SUSTAINABILITY PROJECT MANAGER [address] [place] [address] [address] [place] [address] Social History Tobacco Use Types Packs/Day Years [...] documented as of this encounter Care Teams Biodiesel Production Associate Relationship Specialty Start Date End Date Selma Good APRN SUSTAINABILITY PROJECT MANAGER [address] [place] [address] [place] [address] PCP - General 04/09/08 04/07/15 Vanda Guerrero MD [address] [place] [address] [place] [address] PCP - General Internal Medicine 04/08/15 01/08/19 Vanda Guerrero MD [address] [place] [address] [place] [address] PCP - Assigned PCP 07/24/16 06/15/18 Noreen Flores APRN SUSTAINABILITY PROJECT MANAGER [address] [place] [address] [place] [address] PCP - Assigned PCP 06/16/18 08/13/18 Noreen Flores APRN SUSTAINABILITY PROJECT MANAGER [address] [place] [address] [place] [address] PCP - General Nurse Practitioner 01/09/19 12/12/21 Sudha Greene, MAURICIO [address] [address] PCP - General 11/01/22 Noreen Flores APRN SUSTAINABILITY PROJECT MANAGER [address] [place] [address] [place] [address] Assigned PCP 06/16/18 05/26/22 Kalyan Galvan Personal Advocate & Liaison (PAL) 08/08/19 04/26/21 Lashae Trevino [facility] [address] [place] [address] [place] [id number] Pharmacist Pharmacist 10/14/19 12/01/20 Eduardo Sharma MD [id number] [place] [id number] Assigned Sleep Provider 04/02/2005/07 [place] [address] [facility] [address] [place], [place] [address] Assigned Musculoskeletal Provider 04/02/20 08/24/20 Marcelo Artis, PA-C [address] [facility] [address] [place], [place] 4[address]37 Assigned Musculoskeletal Provider 08/25/20 08/20/21 Rodrigo Man PA-C [address] [place] [address] Assigned Surgical Provider 08/25/20 11/27/20 Noreen Flores APRN SUSTAINABILITY PROJECT MANAGER 3305 [facility] [place] [address] Assigned PCP 08/05/22 03/16/23 Agatha Null DPM, Podiatry/Foot and Ankle Surgery [address] [place] [address] [place] [address] Assigned Musculoskeletal Provider 11/04/22 Clinic - N[facility]ring[facility] 3305 [facility] [place] [address] Assigned PCP 07/05/23 documented as of this encounter
--- OUTSIDE RECORDS SUMMARY | 2023-09-25 09:57 | XMS_ITS | Encounter Summary ---
Author Name Unknown Organization [place] Address [address] [place] [address] Care Team Providers Care Networking Administrator Name Role Phone Selma Good APRN PLASTIC MOLDING OPERATOR Primary Care Pro vider Vanda Guerrero MD Primary Care Provider [phone] Vanda Guerrero MD Unavailable [phone] Jeana-JdNoreen castro APRN, CNP Unavailable Jeana-JdNoreen castro APRN, CNP Unavailable Jeana-JdNoreen castro APRN PLASTIC MOLDING OPERATOR Primary Car e Provider Kalyan Galvan Unavailable Unavailable Lashae Trevino [facility] Unavailable [phone] Eduardo Sharma MD Unavailable Rios Monteiro MD Unavailable [phone] Marcelo Artis PA-C Unavailable [phone] Rodrigo Man PA-C Unavailable [phone] Jeana-JdNoreen castro APRN PLASTIC MOLDING OPERATOR Unavailable Sudha Greene NP Primary Care Provider Agatha NullM, Podiatry /Foot and Ankle Surgery Unavailable [facility] Unavailable Encounter Details Date Type Department Care Team (Late st Contact Info) Description 05/21/2013 [facility] Medical Advice [address] [place] [phone] Alejo Casas Social History Tobacco Use Types [...] documented as of this encounter Care Teams Networking Administrator Relationship Specialty Start Date End Date Selma Good APRN PLASTIC MOLDING OPERATOR [address]305 [facility] [place] [address] PCP - General 04/09/08 04/07/15 Vanda Guerrero MD [address] [place] [address] [place] [address] PCP - General Internal Medicine 04/08/15 01/08/19 Vanda Guerrero MD [address] [place] [address] [place] [address] PCP - Assigned PCP 07/24/16 06/15/18 Noreen Flores APRN PLASTIC MOLDING OPERATOR [facility]5 [facility] [place] [address] PCP - Assigned PCP 06/16/18 08/13/18 Noreen Flores APRN PLASTIC MOLDING OPERATOR [address] [place] [address] [place] [address] PCP - General Nurse Practitioner 01/09/19 12/12/21 Sudha Greene NP [address] [address] PCP - General 11/01/22 Noreen Flores APRN PLASTIC MOLDING OPERATOR [address] [place] [address] [place] [address] Assigned PCP 06/16/18 05/26/22 Kalyan Galvan Personal Advocate & Liaison (PAL) 08/08/19 04/26/21 [facility] [address] [place] [address] [place] [address] Pharmacist Pharmacist 10/14/19 12/01/20 Eduardo Sharma MD [address] [address] Assigned Sleep Provider 04/02/2005/07 [place] [id number] [place] [address] [address] [place] [address] Assigned Musculoskeletal Provider 04/02/20 08/24/20 Marcelo Artis PA-C [address] [facility] [address] [place] [address] Assigned Musculoskeletal Provider 08/25/20 08/20/21 Rodrigo Man PA-C [address] [place] [address] Assigned Surgical Provider 08/25/20 11/27/20 Noreen Flores APRN PLASTIC MOLDING OPERATOR [address] [facility] [place] [address] Assigned PCP 08/05/22 03/16/23 Agatha Null DPM, Podiatry/Foot and Ankle Surgery [address] [place] [address] [place] 115097 Assigned Musculoskeletal Provider 11/04/22 Clinic - N[facility] 3305 [facility] [place] [address] Assigned PCP 07/05/23 documented as of this encounter
--- OUTSIDE RECORDS SUMMARY | 2023-09-25 09:57 | XMS_ITS | Encounter Summary ---
Author Name Unknown Organization [place] Address [address] [place] [address] Care Team Providers Care Vice President Quality Name Role Phone Selma Good APRN DIRECTOR SCRIPT Primary Care Pro vider Vanda Guerrero MD Primary Care Provider [phone] Vanda Guerrero MD Unavailable [phone] Jeana-JdNoreen castro APRN, CNP Unavailable Jeana-JdNoreen castro APRN, CNP Unavailable Jeana-JdNoreen castro APRN DIRECTOR SCRIPT Primary Car e Provider Kalyan Galvan Unavailable Unavailable Lashae Trevino [facility] Unavailable [phone] Eduardo Sharma MD Unavailable Rios Monteiro MD Unavailable [phone] Marcelo Artis PA-C Unavailable [phone] Rodrigo Man PA-C Unavailable [phone] Jeana-JdNoreen castro APRN DIRECTOR SCRIPT Unavailable Sudha Greene NP Primary Care Provider [phone] Agatha NullM, Podiatry /Foot and Ankle Surgery Unavailable [facility] Unavailable Encounter Details Date Type Department Care Team (Late st Contact Info) Description 05/28/2012 [facility] Medical Advice [address] [place] [phone] Alejo Casas Social History [...] of this encounter Care Teams Vice President Quality Relationship Specialty Start Date End Date Selma Good APRN DIRECTOR SCRIPT [address]305 [facility] [place] [address] PCP - General 04/09/08 04/07/15 Vanda Guerrero MD [address] [place] [address] [place] [address] PCP - General Internal Medicine 04/08/15 01/08/19 Vanda Guerrero MD [address] [place] [address] [place] [address] PCP - Assigned PCP 07/24/16 06/15/18 Noreen Flores APRN DIRECTOR SCRIPT [facility]5 [facility] [place] [address] PCP - Assigned PCP 06/16/18 08/13/18 Noreen Flores APRN DIRECTOR SCRIPT [address] [place] [address] [place] [address] PCP - General Nurse Practitioner 01/09/19 12/12/21 Sudha Greene NP [address] [address] PCP - General 11/01/22 Noreen Flores APRN DIRECTOR SCRIPT [address] [place] [address] [place] [address] Assigned PCP 06/16/18 05/26/22 Kalyan Galvan Personal Advocate & Liaison (PAL) 08/08/19 04/26/21 [facility] [address] [place] [address] [place] [address] Pharmacist Pharmacist 10/14/19 12/01/20 Eduardo Sharma MD [address] [address] Assigned Sleep Provider 04/02/2005/07 [place] [id number] [place] [address] 300 [place] [address] Assigned Musculoskeletal Provider 04/02/20 08/24/20 Marcelo Artis PA-C [address] [facility] 300 [place] [address] Assigned Musculoskeletal Provider 08/25/20 08/20/21 Rodrigo Man PA-C [address] [place] [address] Assigned Surgical Provider 08/25/20 11/27/20 Noreen Flores APRN DIRECTOR SCRIPT 3305 [facility] [place] [address] Assigned PCP 08/05/22 03/16/23 Agatha Null DPM, Podiatry/Foot and Ankle Surgery [address] [place] [address] [place] 693127 Assigned Musculoskeletal Provider 11/04/22 Clinic - Nita Pringle [facility] 3305 [facility] [place] [address] Assigned PCP 07/05/23 documented as of this encounter
--- OUTSIDE RECORDS SUMMARY | 2023-09-25 09:57 | XMS_ITS | Encounter Summary ---
Author Name Unknown Organization [place] Address [address] [place] [address] Care Team Providers Care Pelt Grader Name Role Phone Vanda Guerrero MD Primary Care Provider [phone] Vanda Guerrero MD Unavailable [phone] Jeana-Noreen Miles APRN BIOMETRICIAN Unavailable Jeana-Noreen Miles APRN BIOMETRICIAN Unavailable Jeana-JdNoreen castro APRN BIOMETRICIAN Primary Car e Provider Kalyan Galvan Unavailable Unavailable Lashae Trevino [facility] Unavailable [phone] Eduardo Sharma MD Unavailable Rios Monteiro MD Unavailable Marcelo Artis PA-C Unavailable Rodrigo Man PA-C Unavailable Jeana-Noreen Miles APRN BIOMETRICIAN Unavailable Sudha Greene NP Primary Care Provider Agatha Null DPM, Podiatry /Foot and Ankle Surgery Unavailable [facility] [place] [facility] Unavailable Encounter Details Date Type Department Care Team (Late st Contact Info) Description 02/11/[address] [place] [phone] Vanda Guerrero MD [address] [place] [address] [place] [address] Social History Tobacco Use Types Packs/Day Years [...] documented as of this encounter Care Teams Pelt Grader Relationship Specialty Start Date End Date Vanda Guerrero MD [address] [place] [address] [place] [address] PCP - General Internal Medicine 04/08/15 01/08/19 Vanda Guerrero MD [address] [place] [address] [place] [address] PCP - Assigned PCP 07/24/16 06/15/18 Noreen Flores APRN BIOMETRICIAN [address] [place] [address] [place] [address] PCP - Assigned PCP 06/16/18 08/13/18 Noreen Flores APRN BIOMETRICIAN [address] [place] [address] [place] [address] PCP - General Nurse Practitioner 01/09/19 12/12/21 Sudha Greene NP [facility] [address] [place] [address] PCP - General 11/01/22 Noreen Flores APRN BIOMETRICIAN [address] [place] [address] [place] [address] Assigned PCP 06/16/18 05/26/22 Kalyan Galvan Personal Advocate & Liaison (PAL) 08/08/19 04/26/21 Lashae Trevino, [facility] [address] [place] [address] [place] [address] Pharmacist Pharmacist 10/14/19 12/01/20 Eduardo Sharma MD [address] [place] [address] [place] [address] Assigned Sleep Provider 04/02/2005/07 [place] [address] [facility] [place] [address] [place] [address] Assigned Musculoskeletal Provider 04/02/20 08/24/20 Marcelo Artis PA-C [address] [place] [address] [place] [address] Assigned Musculoskeletal Provider 08/25/20 08/20/21 Rodrigo Man PA-C [address] [place] [address] [place] [address] Assigned Surgical Provider 08/25/20 11/27/20 Noreen Flores APRN BIOMETRICIAN 3305 [facility] [place] [address] Assigned PCP 08/05/22 03/16/23 Agatha Null DPM, Podiatry/Foot and Ankle Surgery [address] [place] [place] [address] Assigned Musculoskeletal Provider 11/04/22 Clinic - N[facility] Pring[facility] 3305 [facility] [place] [id number] Assigned PCP 07/05/23 documented as of this encounter
--- OUTSIDE RECORDS SUMMARY | 2023-09-25 09:57 | XMS_ITS | Encounter Summary ---
Author Name Unknown Organization [facility] Address [address] [place] [address] Care Team Providers Care Head Nurse Name Role Phone Selma Good APRN RISK REDUCTION COUNSELOR Primary Care Pro vider Vanda Guerrero MD Primary Care Provider [phone] Vanda Guerrero MD Unavailable [phone] Jeana-JdNoreen castro APRN, CNP Unavailable Jeana-JdNoreen castro APRN, CNP Unavailable Jeana-JdNoreen castro APRN RISK REDUCTION COUNSELOR Primary Car e Provider Kalyan Galvan Unavailable Unavailable Lashae Trevino [facility] Unavailable [phone] Eduardo Sharma MD Unavailable Rios Monteiro MD Unavailable [phone] Marcelo Artis PA-C Unavailable [phone] Rodrigo Man PA-C Unavailable [phone] Jeana-JdNoreen castro APRN RISK REDUCTION COUNSELOR Unavailable Sudha Greene NP Primary Care Provider [phone] Agatha NullM, Podiatry /Foot and Ankle Surgery Unavailable [facility] Unavailable Encounter Details Date Type Department Care Team (Late st Contact Info) Description 09/24/2014 My[facility] Medical Advice [address] [place] [phone] Shante Joya, RN Social History Tobacco Use Types Packs/Day [...] as of this encounter Care Teams Head Nurse Relationship Specialty Start Date End Date Selma Good APRN RISK REDUCTION COUNSELOR [address]305 [facility] [place] [address] PCP - General 04/09/08 04/07/15 Vanda Guerrero MD 3305 [facility] [place] [address] PCP - General Internal Medicine 04/08/15 01/08/19 Vanda Guerrero MD [facility] [place] [address] PCP - Assigned PCP 07/24/16 06/15/18 Noreen Flores APRN RISK REDUCTION COUNSELOR 3305 [facility] [place] [address] PCP - Assigned PCP 06/16/18 08/13/18 Noreen Flores APRN RISK REDUCTION COUNSELOR [address] [place] [address] [place] [address] PCP - General Nurse Practitioner 01/09/19 12/12/21 Sudha Greene NP [address] [address] PCP - General 11/01/22 Noreen Flores APRN RISK REDUCTION COUNSELOR [address] [place] [address] [place] [address] Assigned PCP 06/16/18 05/26/22 Kalyan Galvan Personal Advocate & Liaison (PAL) 08/08/19 04/26/21 Lashae Trevino [facility] [address] [place] [address] [place] [address] Pharmacist Pharmacist 10/14/19 12/01/20 Eduardo Sharma MD [address] [address] Assigned Sleep Provider 04/02/2005/07 [place]ios [place] [address] [place] [address] Assigned Musculoskeletal Provider 04/02/20 08/24/20 Marcelo Artis PA-C [address] [address] Assigned Musculoskeletal Provider 08/25/20 08/20/21 Rodrigo Man PA-C [address] [place] [address] Assigned Surgical Provider 08/25/20 11/27/20 Noreen Flores APRN RISK REDUCTION COUNSELOR 3305 [facility] [place] [address] Assigned PCP 08/05/22 03/16/23 Agatha Null DPM, Podiatry/Foot and Ankle Surgery [address] [place] [address] [place] [address] Assigned Musculoskeletal Provider 11/04/22 Clinic - [facility] 3305 [facility] [place] [address] Assigned PCP 07/05/23 documented as of this encounter
--- OUTSIDE RECORDS SUMMARY | 2023-09-25 09:57 | XMS_ITS | Encounter Summary ---
Author Name Unknown Organization [place] Address [address] [place] [address] Care Team Providers Care Cooking Chef Name Role Phone Selma Good APRN VIDEOTAPE RECORDING ENGINEER Primary Care Pro vider Vanda Guerrero MD Primary Care Provider [phone] Vanda Guerrero MD Unavailable [phone] Jeana-JdNoreen castro APRN, CNP Unavailable Jeana-JdNoreen castro APRN, CNP Unavailable Jeana-JdNoreen castro APRN VIDEOTAPE RECORDING ENGINEER Primary Car e Provider Kalyan Galvan Unavailable Unavailable Lashae Trevino [facility] Unavailable [phone] Eduardo Sharma MD Unavailable Rios Monteiro MD Unavailable [phone] Marcelo Artis-Aleyda Unavailable [phone] Rodrigo Man-C Unavailable [phone] Jeana-JdNoreen castro APRN VIDEOTAPE RECORDING ENGINEER Unavailable Sudha Greene NP Primary Care Provider Agatha NullM, Podiatry /Foot and Ankle Surgery Unavailable [facility] Unavailable Reason for Visit * Reason Onset Date Comments Medication Question 05/29/2012 wellbutrin Encounter Details Date Type Department Care Team (Late st Contact Info) Description 05/29/2012 My[facility] Medical Advice [address] [place] [phone] Selma Good, IT OPERATIONS ANALYST VIDEOTAPE RECORDING ENGINEER [address] [place] [address] [place] [address] Medication Question (wellbutrin) Social History Tobacco Use [...] documented as of this encounter Care Teams Cooking Chef Relationship Specialty Start Date End Date Selma oGod, IT OPERATIONS ANALYST VIDEOTAPE RECORDING ENGINEER [address] [place] [address] [place] [address] PCP - General 04/09/08 04/07/15 Vanda Guerrero MD [address] [place] [address] [place] [address] PCP - General Internal Medicine 04/08/15 01/08/19 Vanda Guerrero MD [address] [place] [address] [place] [address] PCP - Assigned PCP 07/24/16 06/15/18 Noreen Flores APRN VIDEOTAPE RECORDING ENGINEER [address] [place] [address] [place] [address] PCP - Assigned PCP 06/16/18 08/13/18 Noreen Flores APRN VIDEOTAPE RECORDING ENGINEER [address] [place] [address] [place] [address] PCP - General Nurse Practitioner 01/09/19 12/12/21 Sudha Greene NP [address] [address] PCP - General 11/01/22 Noreen Flores APRN VIDEOTAPE RECORDING ENGINEER [address] [place] [address] [place] [address] Assigned PCP 06/16/18 05/26/22 Kalyan Galvan Personal Advocate & Liaison (PAL) 08/08/19 04/26/21 [facility] [address] [place] [address] [place] [phone] Pharmacist Pharmacist 10/14/19 12/01/20 Eduardo Sharma MD [address] [facility] 103 [place] [id number] Assigned Sleep Provider 04/02/2005/07 [place] [address] [facility] 300 [place] 349747 Assigned Musculoskeletal Provider 04/02/20 08/24/20 Marcelo Artis PA-C [address] [facility] 300 [place] [address] Assigned Musculoskeletal Provider 08/25/20 08/20/21 Rodrigo Man PA-C [address] [facility] 450 [place] [address] Assigned Surgical Provider 08/25/20 11/27/20 Noreen Flores APRN CNP [address] [place] [address] [place] [address] Assigned PCP 08/05/22 03/16/23 Agatha Null DPM, Podiatry/Foot and Ankle Surgery [address] [facility] 300 [place] [address] Assigned Musculoskeletal Provider 11/04/22 [facility] 3305 [facility] [place] [id number] Assigned PCP 07/05/23 documented as of this encounter
--- OUTSIDE RECORDS SUMMARY | 2023-09-25 09:57 | XMS_ITS | Encounter Summary ---
Author Name Unknown Organization [facility] Address [address] [place] [address] Care Team Providers Care Precision Assembly Inspector Name Role Phone Vanda Guerrero MD Primary Care Provider [phone] Vanda Guerrero MD Unavailable [phone] Jeana-Noreen Miles APRN SECURITY SPECIALIST Unavailable [facility]-Noreen Miles APRN SECURITY SPECIALIST Unavailable [facility]-JdNoreen castro APRN SECURITY SPECIALIST Primary Car e Provider Kalyan Galvan Unavailable Unavailable Lashae Trevino [facility] Unavailable [phone] Eduardo Sharma MD Unavailable Rios Monteiro MD Unavailable [phone] Marcelo Artis-C Unavailable [phone] Rodrigo Man-C Unavailable [phone] Jeana-Noreen Miles APRN SECURITY SPECIALIST Unavailable Sudha Greene NP Primary Care Provider [phone] Agatha Null DPM, Podiatry /Foot and Ankle Surgery Unavailable [facility] Unavailable Reason for Referral * Consultation - Closed Specialty Diagnoses / Procedures Referred By Rylie t Referred To Contact Diagnoses Cervicalgia History of lumbar fusion History of fusion of cervical spine Vanda Guerrero MD [address] [facility] [place] [address] [facility] [place] [address] [facility] [address] [place] [address] Referral ID Status Reason Start Date Expiration Date Visits Re quested Visits Authorized [id number] Closed 04/27/2015 04/26/2016 1 1 Comments [facility] is referring you to the Orthopedic Quality Assurance Project Manager Services at [facility]. The Quality Assurance Project Manager Afternoon Nanny will assist you in the coordination of your Orthopedic and Musculoskeletal Care as prescribed by your physician. The Quality Assurance Project Manager Afternoon Nanny will call you within 24 hours to help schedule your appointment, or you may contact the Quality Assurance Project Manager Afternoon Nanny at: [facility] ~ [facility] ~ [facility] ~ Type of Referral : Spine: Cervical / Thoracic: Medical Boat Washer Timeframe requested: Routine Coverage of these services is subject to the terms and limitations of your health insurance plan. Please call member services at your health plan with any benefit or coverage questions. If X-rays, CT or MRI's have been performed, please contact the facility where they were done to arrange for sweet pickle maker, prior to your scheduled appointment. Please bring this referral request to your appointment and present it to your specialist. TIC SURGEON Reason for Visit * Reason Onset Date Comments Leg Pain 04/27/2015 Encounter Details Date Type Department Care Team (Late st Contact Info) Description 04/27/2015 MyC Medical Advice [facility] [address] [facility] [place] [address] Vanda Guerrero MD [address] [facility] [place] [address] Leg Pain Social History Tobacco Use Types [...] Kallie Mishra RN - 04/27/2015 5:20 PM PLASTIC SURGEON Entered referral, sent Design Within Reach message to update the patient. TIC SURGEON * Telephone Encounter - Vanda Guerrero MD - 04/27/2015 3:16 PM PLASTIC SURGEON Recommend FSOC evaluation in the next 1-2 weeks. TIC SURGEON * Telephone Encounter - Kallie Mishra RN - 04/27/2015 3:14 PM PLASTIC SURGEON Would you recommend re-evaluation due to new symptoms? TIC SURGEON documented in this encounter Plan of [...] documented as of this encounter Care Teams Precision Assembly Inspector Relationship Specialty Start Date End Date Vanda Guerrero MD [address] [facility] [place] [address] PCP - General Internal Medicine 04/08/15 01/08/19 Vanda Guerrero MD [address] [facility] [place] [address] PCP - Assigned PCP 07/24/16 06/15/18 Noreen Flores APRN SECURITY SPECIALIST [address] [place] [address] [place] [address] PCP - Assigned PCP 06/16/18 08/13/18 Noreen Flores APRN SECURITY SPECIALIST [address] [place] [address] [place] [address] PCP - General Nurse Practitioner 01/09/19 12/12/21 Sudha Greene NP [address] [address] PCP - General 11/01/22 Noreen Flores APRN SECURITY SPECIALIST [address] [place] [address] [place] [address] Assigned PCP 06/16/18 05/26/22 Kalyan Galvan Personal Advocate & Liaison (PAL) 08/08/19 04/26/21 Lashae Trevino, [facility] [address] [facility] [place] [address] Pharmacist Pharmacist 10/14/19 12/01/20 Eduardo Sharma MD [address] [facility] 103 [place], [place] 462475 Assigned Sleep Provider 04/02/2005/07 [place] [address] [facility] 300 [place] [address] Assigned Musculoskeletal Provider 04/02/20 08/24/20 Marcelo Artis PA-C [address] [facility] 300 [place] [address] Assigned Musculoskeletal Provider 08/25/20 08/20/21 Rodrigo Man PA-C [address] [facility] [address] [place] [address] Assigned Surgical Provider 08/25/20 11/27/20 Noreen Flores APRN SECURITY SPECIALIST [address] [place] [address] [place] [id number] Assigned PCP 08/05/22 03/16/23 Agatha Null DPM, Podiatry/Foot and Ankle Surgery [address] [facility] 300 [place] [address] Assigned Musculoskeletal Provider 11/04/22 [facility] [place] [place] [facility] [address] [place] [address] [place] [id number] Assigned PCP 07/05/23 documented as of this encounter
--- OUTSIDE RECORDS SUMMARY | 2023-09-25 09:57 | XMS_ITS | Encounter Summary ---
Author Name Unknown Organization [facility] Address [address] [place] [address] Care Team Providers Care Fitness Supervisor Name Role Phone Selma Good APRN OBGYN HOSPITALIST PHYSICIAN Primary Care Pro vider Vanda Guerrero MD Primary Care Provider [phone] Vanda Guerrero MD Unavailable [phone] Jeana-JdNoreen castro APRN, CNP Unavailable Jeana-JdNoreen castro APRN, CNP Unavailable Jeana-JdNoreen castro APRN OBGYN HOSPITALIST PHYSICIAN Primary Car e Provider Kalyan Galvan Unavailable Unavailable Lashae Trevino [facility] Unavailable [phone] Eduardo Sharma MD Unavailable Rios Monteiro MD Unavailable [phone] Marcelo Artis PA-C Unavailable [phone] Rodrigo Man PA-C Unavailable [phone] Jeana-JdNoreen castro APRN OBGYN HOSPITALIST PHYSICIAN Unavailable Sudha Greene NP Primary Care Provider Agatha NullM, Podiatry /Foot and Ankle Surgery Unavailable [facility] [place] [facility] Unavailable Encounter Details Date Type Department Care Team (Late st Contact Info) Description 12/05/2012 [facility] Medical Advice [address] [place] [address] Alejo Casas Social History [...] as of this encounter Care Teams Fitness Supervisor Relationship Specialty Start Date End Date Selma Good APRN OBGYN HOSPITALIST PHYSICIAN [address] [facility] [place] [address] PCP - General 04/09/08 04/07/15 Vanda Guerrero MD [address] [place] [address] [place] [address] PCP - General Internal Medicine 04/08/15 01/08/19 Vanda Guerrero MD [address] [place] [address] [place] [address] PCP - Assigned PCP 07/24/16 06/15/18 Noreen Flores APRN OBGYN HOSPITALIST PHYSICIAN [facility]5 [facility] [place] [address] PCP - Assigned PCP 06/16/18 08/13/18 Noreen Flores APRN OBGYN HOSPITALIST PHYSICIAN [address] [place] [address] [place] [address] PCP - General Nurse Practitioner 01/09/19 12/12/21 Sudha Greene NP [address] [address] PCP - General 11/01/22 Noreen Flores APRN OBGYN HOSPITALIST PHYSICIAN [address] [place] [address] [place] [address] Assigned PCP 06/16/18 05/26/22 Kalyan Galvan Personal Advocate & Liaison (PAL) 08/08/19 04/26/21 [facility] [address] [place] [address] [place] [address] Pharmacist Pharmacist 10/14/19 12/01/20 dEuardo Sharma MD [address] [address] Assigned Sleep Provider 04/02/2005/07 [place] [id number] [place] [address] 300 [place] [address] Assigned Musculoskeletal Provider 04/02/20 08/24/20 Marcelo Artis PA-C [address] [facility] 300 [place] [address] Assigned Musculoskeletal Provider 08/25/20 08/20/21 Rodrigo Man PA-C [address] [place] [address] [place] [address] Assigned Surgical Provider 08/25/20 11/27/20 Noreen Flores APRN OBGYN HOSPITALIST PHYSICIAN [address] [facility] [place] [address] Assigned PCP 08/05/22 03/16/23 Agatha Null DPM, Podiatry/Foot and Ankle Surgery [address] [place] [address] [place] [id number] Assigned Musculoskeletal Provider 11/04/22 Clinic - [place] [place] [facility] 3[address] [facility] [place] [address] Assigned PCP 07/05/23 documented as of this encounter
--- OUTSIDE RECORDS SUMMARY | 2023-09-25 09:57 | XMS_ITS | Encounter Summary ---
Author Name Unknown Organization [facility] Address [address] [place] [address] Care Team Providers Care Laborer Livestock Name Role Phone Vanda Guerrero MD Primary Care Provider [phone] Vanda Guerrero MD Unavailable [phone] Jeana-Noreen Miles APRN SPEEDER MACHINE OPERATOR [facility]available [facility] SPEEDER MACHINE OPERATOR Unavailable [facility]-JdNoreen castro APRN SPEEDER MACHINE OPERATOR Primary Car e Provider Kalyan Galvan Unavailable Unavailable Lashae Trevino [facility] Unavailable [phone] Eduardo Sharma MD Unavailable Rios Monteiro MD Unavailable [phone] Marcelo Artis PA-C Unavailable Rodrigo Man PA-C Unavailable Jeana-Noreen Miles APRN SPEEDER MACHINE OPERATOR Unavailable Sudha Greene NP Primary Care Provider [phone] Agatha Null DPM, Podiatry /Foot and Ankle Surgery Unavailable [facility] [facility] Unavailable Reason for Visit * Reason Onset Date Comments Patient/info Update 05/01/2016 foot prob Encounter Details Date Type Department Care Team (Late st Contact Info) Description 05/01/2016 MyC Medical Advice [facility] [address] [place] [address] Agatha Null DPM, Podiatry/Foot and Ankle Surgery [address] [place] [address] Patient/info Update (foot prob) Social History Tobacco [...] documented as of this encounter Care Teams Laborer Livestock Relationship Specialty Start Date End Date Vanda Guerrero MD [address] [place] [address] [place] [address] PCP - General Internal Medicine 04/08/15 01/08/19 Vanda Guerrero MD [address] [place] [address] [place] [address] PCP - Assigned PCP 07/24/16 06/15/18 Noreen Flores APRN SPEEDER MACHINE OPERATOR [address] [place] [address] [place] [address] PCP - Assigned PCP 06/16/18 08/13/18 Noreen Flores APRN SPEEDER MACHINE OPERATOR [address] [place] [address] [place] [address] PCP - General Nurse Practitioner 01/09/19 12/12/21 Sudha Greene, [place] [address] [address] PCP - General 11/01/22 Noreen Flores APRN SPEEDER MACHINE OPERATOR [address] [place] [address] [place] [address] Assigned PCP 06/16/18 05/26/22 Kalyan Galvan Personal Advocate & Liaison (PAL) 08/08/19 04/26/21 [facility] [address] [place] [address] [place] [address] Pharmacist Pharmacist 10/14/19 12/01/20 Eduardo Sharma MD [address] [address] Assigned Sleep Provider 04/02/2005/07 Rios Monteiro MD [address] [place] [address] Assigned Musculoskeletal Provider 04/02/20 08/24/20 Marcelo Artis PA-C [address] [address] Assigned Musculoskeletal Provider 08/25/20 08/20/21 Rodrigo Man PA-C [address] [place] [address] [place] [address] Assigned Surgical Provider 08/25/20 11/27/20 Noreen Flores APRN SPEEDER MACHINE OPERATOR 3305 [facility] [place] [address] Assigned PCP 08/05/22 03/16/23 Agatha Null DPM, Podiatry/Foot and Ankle Surgery [address] [place] 300 [place] [id number] Assigned Musculoskeletal Provider 11/04/22 Clinic - [facility] 3305 [facility] [place] [id number] Assigned PCP 07/05/23 documented as of this encounter
--- OUTSIDE RECORDS SUMMARY | 2023-09-25 09:58 | XMS_ITS | Encounter Summary ---
Author Name Unknown Organization [facility] Address [address] [place] [address] Care Team Providers Care Breaker Hand Name Role Phone Selma Good APRN LEGAL ANALYST Primary Care Pro vider Vanda Guerrero MD Primary Care Provider [phone] Vanda Guerrero MD Unavailable [phone] Jeana-JdNoreen castro APRN, CNP Unavailable Jeana-JdNoreen castro APRN, CNP Unavailable Jeana-JdNoreen castro APRN LEGAL ANALYST Primary Car e Provider Kalyan Galvan Unavailable Unavailable Lashae Trevino [facility] Unavailable [phone] Eduardo Sharma MD Unavailable Rios Monteiro MD Unavailable [phone] Marcelo Artis PA-C Unavailable [phone] Rodrigo Man PA-C Unavailable [phone] Jeana-JdNoreen castro APRN LEGAL ANALYST Unavailable Sudha Greene NP Primary Care Provider Agatha NullM, Podiatry /Foot and Ankle Surgery Unavailable [facility] Unavailable Encounter Details Date Type Department Care Team (Late st Contact Info) Description 04/24/2011 [facility] Medical Advice [place] 986160 [facility] [place] [address] Alejo Casas Social History Tobacco Use [...] documented as of this encounter Care Teams Breaker Hand Relationship Specialty Start Date End Date Selma Good APRN LEGAL ANALYST [address] [place] [address] [place] [address] PCP - General 04/09/08 04/07/15 Vanda Guerrero MD [address] [place] [address] [place] [address] PCP - General Internal Medicine 04/08/15 01/08/19 Vanda Guerrero MD [address] [place] [address] [place] [address] PCP - Assigned PCP 07/24/16 06/15/18 Noreen Flores APRN LEGAL ANALYST [address] [place] [address] [place] [address] PCP - Assigned PCP 06/16/18 08/13/18 Noreen Flores APRN LEGAL ANALYST 3305 [facility] [place] [address] PCP - General Nurse Practitioner 01/09/19 12/12/21 Sudha Greene NP [address] [address] PCP - General 11/01/22 Noreen Flores APRN LEGAL ANALYST [address] [place] [address] [place] [address] Assigned PCP 06/16/18 05/26/22 Kalyan Galvan Personal Advocate & Liaison (PAL) 08/08/19 04/26/21 [facility] [address] [place] [address] [place] [address] Pharmacist Pharmacist 10/14/19 12/01/20 Eduardo Sharma MD [address] [place] [address] [place] [address] Assigned Sleep Provider 04/02/2005/07 [place] [address] [facility] [place] [address] [place] [address] Assigned Musculoskeletal Provider 04/02/20 08/24/20 Marcelo Artis PA-C [address] [facility] [place] [address] [place] [address] Assigned Musculoskeletal Provider 08/25/20 08/20/21 Rodrigo Man PA-C [address] [place] [address] [place] [address] Assigned Surgical Provider 08/25/20 11/27/20 Noreen Flores APRN LEGAL ANALYST 3305 [facility] [place] [address] Assigned PCP 08/05/22 03/16/23 Agatha Null DPM, Podiatry/Foot and Ankle Surgery [address] [place] [address] [place] 095857 Assigned Musculoskeletal Provider 11/04/22 [facility] [place] [place] [address] [facility] [address] [place] [address] Assigned PCP 07/05/23 documented as of this encounter
--- OUTSIDE RECORDS SUMMARY | 2023-09-25 09:58 | XMS_ITS | Encounter Summary ---
Author Name Unknown Organization [facility] Address [address] [place] [address] Care Team Providers Care Hadoop Engineer Name Role Phone Selma Good APRN CDS SALES ADVISOR Primary Care Pro vider Vanda Guerrero MD Primary Care Provider [phone] Vanda Guerrero MD Unavailable [phone] Jeana-JdNoreen castro APRN, CNP Unavailable Jeana-JdNoreen castro APRN, CNP Unavailable Jeana-JdNoreen castro APRN CDS SALES ADVISOR Primary Car e Provider Kalyan Galvan Unavailable Unavailable Lashae Trevino [facility] Unavailable [phone] Eduardo Sharma MD Unavailable Rios Monteiro MD Unavailable [phone] Marcelo Artis PA-C Unavailable [phone] Rodrigo Man PA-C Unavailable [phone] Jeana-JdNoreen castro APRN CDS SALES ADVISOR Unavailable Sudha Greene NP Primary Care Provider [phone] Agatha NullM, Podiatry /Foot and Ankle Surgery Unavailable [facility] Unavailable Encounter Details Date Type Department Care Team (Late st Contact Info) Description 05/13/2008 MyC Medical Advice Initial Department Alejo Casas Social History Tobacco Use Types [...] documented as of this encounter Care Teams Hadoop Engineer Relationship Specialty Start Date End Date Slema Good APRN CDS SALES ADVISOR [address] [place] [address] [place] [address] PCP - General 04/09/08 04/07/15 Vanda Guerrero MD [address] [place] [address] [place] [address] PCP - General Internal Medicine 04/08/15 01/08/19 Vanda Guerrero MD [address] [place] [address] [place] [address] PCP - Assigned PCP 07/24/16 06/15/18 Noreen Flores APRN CDS SALES ADVISOR [address] [place] [address] [place] [address] PCP - Assigned PCP 06/16/18 08/13/18 Noreen Flores APRN CDS SALES ADVISOR [address] [place] [address] [place] [address] PCP - General Nurse Practitioner 01/09/19 12/12/21 Sudha Greene NP [address] [address] PCP - General 11/01/22 Noreen Flores APRN CDS SALES ADVISOR 3305 [facility] [place] [address] Assigned PCP 06/16/18 05/26/22 Kalyan Galvan Personal Advocate & Liaison (PAL) 08/08/19 04/26/21 Lashae Trevino, [facility] 1440 [facility] [place] [address] Pharmacist Pharmacist 10/14/19 12/01/20 Eduardo Sharma MD [address] [place] [address] [place] 462175 Assigned Sleep Provider 04/02/2005/07 [place] [address] [facility] [place] [address] [place] [address] Assigned Musculoskeletal Provider 04/02/20 08/24/20 Marcelo Artis PA-C [address] [place] [address] [place] [address] Assigned Musculoskeletal Provider 08/25/20 08/20/21 Rodrigo Man PA-C [address] [place] [address] [place] [address] Assigned Surgical Provider 08/25/20 11/27/20 Noreen Flores APRN CDS SALES ADVISOR 3305 [facility] [place] [address] Assigned PCP 08/05/22 03/16/23 Agatha Null DPM, Podiatry/Foot and Ankle Surgery [address] [place] [address] Assigned Musculoskeletal Provider 11/04/22 [facility] - [facility] 3305 [facility] [place] [id number] Assigned PCP 07/05/23 documented as of this encounter
--- OUTSIDE RECORDS SUMMARY | 2023-09-25 09:58 | XMS_ITS | Encounter Summary ---
Author Name Unknown Organization [place] Address [address] [place] [address] Care Team Providers Care Grant Manager Name Role Phone Selma Good APRN WATCHMAKER APPRENTICE Primary Care Pro vider Vanda Guerrero MD Primary Care Provider [phone] Vanda Guerrero MD Unavailable [phone] Jeana-JdNoreen castro APRN, CNP Unavailable Jeana-JdNoreen castro APRN, CNP Unavailable Jeana-JdNoreen castro APRN WATCHMAKER APPRENTICE Primary Car e Provider Kalyan Galvan Unavailable Unavailable Lashae Trevino [facility] Unavailable [phone] Eduardo Sharma MD Unavailable Rios Monteiro MD Unavailable [phone] Marcelo Artis PA-C Unavailable [phone] Rodrigo Man PA-C Unavailable [phone] Jeana-JdNoreen castro APRN WATCHMAKER APPRENTICE Unavailable Sudha Greene NP Primary Care Provider Agatha NullM, Podiatry /Foot and Ankle Surgery Unavailable [facility] Unavailable Encounter Details Date Type Department Care Team (Late st Contact Info) Description 09/18/2008 MyC Medical Advice Initial Department Alejo Casas Obesity, Unspecified (Primary Dx) Social History Tobacco [...] documented as of this encounter Care Teams Grant Manager Relationship Specialty Start Date End Date Selma Good APRN WATCHMAKER APPRENTICE [address] [place] [address] [place] [address] PCP - General 04/09/08 04/07/15 Vanda Guerrero MD [address] [place] [address] [place] [address] PCP - General Internal Medicine 04/08/15 01/08/19 Vanda Guerrero MD [address] [place] [address] [place] [address] PCP - Assigned PCP 07/24/16 06/15/18 Noreen Flores APRN WATCHMAKER APPRENTICE [address] [place] [address] [place] [address] PCP - Assigned PCP 06/16/18 08/13/18 Noreen Flores APRN WATCHMAKER APPRENTICE [facility] [place] [address] PCP - General Nurse Practitioner 01/09/19 12/12/21 Sudha Greene NP [address] [address] PCP - General 11/01/22 Noreen Flores APRN WATCHMAKER APPRENTICE 3305 [facility] [place] [address] Assigned PCP 06/16/18 05/26/22 Kalyan Galvan Personal Advocate & Liaison (PAL) 08/08/19 04/26/21 Lashae Trevino [facility] [address] [place] [address] [place] [id number] Pharmacist Pharmacist 10/14/19 12/01/20 Eduardo Sharma MD [address] [place] [address] [place] [id number] Assigned Sleep Provider 04/02/2005/07 [place] [address] [facility] 300 [place] [address] Assigned Musculoskeletal Provider 04/02/20 08/24/20 Marcelo Artis PA-C [address] [facility] 300 [place] [address] Assigned Musculoskeletal Provider 08/25/20 08/20/21 Rodrigo Man PA-C [address] [place] [address] [place] [address] Assigned Surgical Provider 08/25/20 11/27/20 Noreen Flores APRN WATCHMAKER APPRENTICE 3305 [facility] [place] [address] Assigned PCP 08/05/22 03/16/23 Agatha Null DPM, Podiatry/Foot and Ankle Surgery [address] [place] [address] Assigned Musculoskeletal Provider 11/04/22 [facility] 3305 [facility] [place] [address] Assigned PCP 07/05/23 documented as of this encounter
--- OUTSIDE RECORDS SUMMARY | 2023-09-25 09:58 | XMS_ITS | Encounter Summary ---
Author Name Unknown Organization [facility] Address [address] [place] [address] Care Team Providers Care Milk Sampler Name Role Phone Selma Good APRN BRICK OFFBEARER Primary Care Pro vider Vanda Guerrero MD Primary Care Provider [phone] Vanda Guerrero MD Unavailable [phone] Jeana-JdNoreen castro APRN, CNP Unavailable Jeana-JdNoreen castro APRN, CNP Unavailable Jeana-JdNoreen castro APRN BRICK OFFBEARER Primary Car e Provider Kalyan Galvan Unavailable Unavailable Lashae Trevino [facility] Unavailable [phone] Eduardo Sharma MD Unavailable Rios Monteiro MD Unavailable [phone] Marcelo Artis PA-C Unavailable [phone] Rodrigo Man PA-C Unavailable [phone] Jeana-JdNoreen castro APRN BRICK OFFBEARER Unavailable Sudha Greene NP Primary Care Provider Agatha NullM, Podiatry /Foot and Ankle Surgery Unavailable [facility] Unavailable Encounter Details Date Type Department Care Team (Late st Contact Info) Description 04/22/2009 [facility] Medical Advice Initial Department Alejo Casas [...] as of this encounter Care Teams Milk Sampler Relationship Specialty Start Date End Date Selma Good APRN BRICK OFFBEARER [address] [place] [address] [place] [address] PCP - General 04/09/08 04/07/15 Vanda Guerrero MD [address] [place] [address] [place] [address] PCP - General Internal Medicine 04/08/15 01/08/19 Vanda Guerrero MD [address] [place] [address] [place] [address] PCP - Assigned PCP 07/24/16 06/15/18 Noreen Flores APRN BRICK OFFBEARER [address] [place] [address] [place] [address] PCP - Assigned PCP 06/16/18 08/13/18 Noreen Flores APRN BRICK OFFBEARER [address] [place] [address] [place] [address] PCP - General Nurse Practitioner 01/09/19 12/12/21 Sudha Greene NP [address] [address] PCP - General 11/01/22 Noreen Flores APRN BRICK OFFBEARER [address] [facility] [place] [address] Assigned PCP 06/16/18 05/26/22 Kalyan Galvan Personal Advocate & Liaison (PAL) 08/08/19 04/26/21 Lashae Trevino, [facility] [address] [facility] [place] [address] Pharmacist Pharmacist 10/14/19 12/01/20 Eduardo Sharma MD [address] [place] [id number] Assigned Sleep Provider 04/02/2005/07 [place] [address] [facility] [address] [place] [address] Assigned Musculoskeletal Provider 04/02/20 08/24/20 Marcelo Artis PA-C [address] [place] [address] Assigned Musculoskeletal Provider 08/25/20 08/20/21 Rodrigo Man PA-C [address] [place] [place] [address] Assigned Surgical Provider 08/25/20 11/27/20 Noreen Flores APRN BRICK OFFBEARER [address] [facility] [place] [address] Assigned PCP 08/05/22 03/16/23 Agatha Null DPM, Podiatry/Foot and Ankle Surgery [address] [place] [address] Assigned Musculoskeletal Provider 11/04/22 [facility] - [facility] [address] [facility] [place] [phone] Assigned PCP 07/05/23 documented as of this encounter
--- OUTSIDE RECORDS SUMMARY | 2023-09-25 09:58 | XMS_ITS | Encounter Summary ---
Author Name Unknown Organization [facility] Address [address] [place] [address] Care Team Providers Care Cartographic Drafter Name Role Phone Unassigned, Provider Primary Care Provider Unava ilable Encounter Details Date Type Department Care Team (Late st Contact Info) Description 08/23/2004 [facility] [address] [place] [address] Gavin Justice MD [address] [place] [address] [id number] Social History Tobacco Use Types Packs/Day Years [...] * Jerome Garg - 08/23/2004 12:00 AM SUPERVISOR COOK HOUSE DATE OF SURGERY: August 23, 2004. STAFF [...] Justice MD Transcribed: 08/24/2004 07:37:56 Doc #: [id number] cc: Jose Colin, DO, Referring DO NOT SIGN UNLESS PRESENT FOR PROCEDURE I attest that I was present for and participated in the ma portions of this procedure(s) in compliance with the Health Care Financing Administration Teaching Physician Guidelines. Signed Date Regions Staff Physician 1 Page 2 Patient Name: PADMINI CHOI Visit Date: 08/23/2004 OUTPATIENT OPERATIVE REPORT CONFIDENTIAL MEDICAL RECORD [address] [phone] Page 1 Patient: PADMINI CHOI Location: PAIN N: [id number] Date of : 1965 Visit Date: 08/23/2004 OUTPATIENT OPERATIVE REPORT documented in this encounter Plan of Treatment Not on file documented as of this encounter Visit Diagnoses Not on filedocumented in this encounter Care Teams Cartographic Drafter Relationship Specialty Start Date End Date Unassigned, Provider [address] [place] [address] PCP - General 09/18/08 documented as of this encounter
--- OUTSIDE RECORDS SUMMARY | 2023-09-25 09:58 | XMS_ITS | Encounter Summary ---
Author Name Unknown Organization [facility] Address [address] [place] [address] Care Team Providers Care Senior Database Engineer Name Role Phone Selma Good APRN GROUP SUPERVISOR YARD Primary Care Pro vider Vanda Guerrero MD Primary Care Provider [phone] Vanda Guerrero MD Unavailable [phone] Jeana-JdNoreen castro APRN, CNP Unavailable Jeana-JdNoreen castro APRN, CNP Unavailable Jeana-JdNoreen castro APRN GROUP SUPERVISOR YARD Primary Car e Provider Kalyan Galvan Unavailable Unavailable Lashae Trevino [facility] Unavailable [phone] Eduardo Sharma MD Unavailable Rios Monteiro MD Unavailable [phone] Marcelo Artis PA-C Unavailable [phone] Rodrigo Man PA-C Unavailable [phone] Jeana-JdNoreen castro APRN GROUP SUPERVISOR YARD Unavailable Sudha Greene NP Primary Care Provider Agatha NullM, Podiatry /Foot and Ankle Surgery Unavailable [facility] Unavailable Encounter Details Date Type Department Care Team (Late st Contact Info) Description 02/11/2010 [facility] [place] [id number] [facility] [place] [phone] Alejo Casas Social [...] as of this encounter Care Teams Senior Database Engineer Relationship Specialty Start Date End Date Selma Good APRN GROUP SUPERVISOR YARD [address] [place] [address] [place] [address] PCP - General 04/09/08 04/07/15 Vanda Guerrero MD [address] [place] [address] [place] [address] PCP - General Internal Medicine 04/08/15 01/08/19 Vanda Guerrero MD [address] [place] [address] [place] [address] PCP - Assigned PCP 07/24/16 06/15/18 Noreen Flores APRN GROUP SUPERVISOR YARD [address] [place] [address] [place] [address] PCP - Assigned PCP 06/16/18 08/13/18 Noreen Flores APRN GROUP SUPERVISOR YARD [address] [facility] [place] [address] PCP - General Nurse Practitioner 01/09/19 12/12/21 Sudha Greene NP [address] [address] PCP - General 11/01/22 Noreen Flores APRN GROUP SUPERVISOR YARD [address] [place] [address] [place] [address] Assigned PCP 06/16/18 05/26/22 Kalyan Galvan Personal Advocate & Liaison (PAL) 08/08/19 04/26/21 [facility] [address] [place] [address] [place] [address] Pharmacist Pharmacist 10/14/19 12/01/20 Eduardo Sharma MD [address] [place] [address] Assigned Sleep Provider 04/02/2005/07 [place] [address] [facility] [address] [place] [address] Assigned Musculoskeletal Provider 04/02/20 08/24/20 Marcelo Artis PA-C [address] [facility] [address] [place] [address] Assigned Musculoskeletal Provider 08/25/20 08/20/21 Rodrigo Man PA-C [address] [place] [address] Assigned Surgical Provider 08/25/20 11/27/20 Noreen Flores APRN GROUP SUPERVISOR YARD [address] [facility] [place] [address] Assigned PCP 08/05/22 03/16/23 Agatha Null DPM, Podiatry/Foot and Ankle Surgery [address] [place] [address] [place] [id number] Assigned Musculoskeletal Provider 11/04/22 [facility] [address] [facility] [address] [place] [address] Assigned PCP 07/05/23 documented as of this encounter
--- OUTSIDE RECORDS SUMMARY | 2023-09-25 09:58 | XMS_ITS | Encounter Summary ---
Author Name Unknown Organization [facility] Address [address] [place] [address] Care Team Providers Care Garage Supervisor Name Role Phone Selma Good APRN FINANCE ASSISTANT Primary Care Pro vider Vanda Guerrero MD Primary Care Provider [phone] Vanda Guerrero MD Unavailable [phone] Jeana-JdNoreen castro APRN, CNP Unavailable Jeana-JdNoreen castro APRN, CNP Unavailable Jeana-JdNoreen castro APRN FINANCE ASSISTANT Primary Car e Provider Kalyan Galvan Unavailable Unavailable Lashae Trevino [facility] Unavailable [phone] Eduardo Sharma MD Unavailable Rios Monteiro MD Unavailable [phone] Marcelo Artis-Aleyda Unavailable [phone] Rodrigo Man-C Unavailable [phone] Jeana-JdNoreen castro APRN FINANCE ASSISTANT Unavailable Sudha Greene NP Primary Care Provider Agatha NullM, Podiatry /Foot and Ankle Surgery Unavailable [facility] Unavailable Reason for Referral * Referral not Required - Closed Specialty Diagnoses / Procedures Referred By Rylie t Referred To Contact Diagnoses Migraine headaches Selma Good APRN FINANCE ASSISTANT [address] [facility] [place] [address] [facility] [address] [place] [address] Referral ID Status Reason Start Date Expiration Date Visits Re quested Visits Authorized [id number] Closed 09/18/2008 06/10/2011 1 1 Comments Coverage of these services is subject to the terms and limitations of your health insurance plan. Please call member services at your health plan with any benefit or coverage questions. [facility] referral to [facility] at [phone]. . Any CT, MRI or procedures ordered by your specialist must be performed at a [facility] facility OR coordinated by your clinic's referral office at [phone]. If X-rays, CTs or MRIs have been performed, please contact the facility where they were done, to arrange for tile picker prior to your scheduled appointment. Please bring this referral request to your appointment and present it to your specialist. Reason for Visit * Reason Onset Date Comments Medication Request 09/17/2008 migraine med Encounter Details Date Type Department Care Team (Late st Contact Info) Description 09/17/2008 [facility] Medical Advice [facility] [address] [facility] [place] [phone] Selma Good, SEAN FINANCE ASSISTANT [address] [facility] [place] [address] Medication Request (migraine med) Social History Tobacco [...] sent to patient with phone number for [facility]. Ivette Allan M.A. * Telephone Encounter - Selma Good - 09/18/2008 8:18 AM CDT It appears in my note from when I saw her, I recommended referral to neuro, which she declined at that time. It appears imitrex 'knocked her out.' I would recommend [facility]. documented in this encounter Plan of Treatment Not on file documented as of this encounter Procedures Procedure Name Priority Date/Time Associated Diagnosis Comments [facility] CONSULT NEUROLOGY Routine 11/15/2010 Migraine headaches documented in this encounter Results * CONSULT NEUROLOGY (11/15/2010) Selma Good MOTOR VEHICLE INSPECTOR FINANCE ASSISTANT REFERRAL documented in this encounter Visit Diagnoses Diagnosis Migraine headaches- Primary Migraine, unspecified, without mention of intractable migraine without mention of status migrainosus documented in this encounter Additional Health Concerns Infection Onset Date Last Indicated Resolved Time Rule Out COVID-19 08/25/2020 08/25/2020 08/26/2020 3:23 PM CDT Rule Out COVID-19 11/26/2022 11/26/2022 11/27/2022 3:38 PM CDT documented as of this encounter Care Teams Garage Supervisor Relationship Specialty Start Date End Date Selma Good MOTOR VEHICLE INSPECTOR FINANCE ASSISTANT [address] [facility] [place] [address] PCP - General 04/09/08 04/07/15 Vanda Guerrero MD [address] [facility] [place] [address] PCP - General Internal Medicine 04/08/15 01/08/19 Vanda Guerrero MD [address] [place] [address] [place] [address] PCP - Assigned PCP 07/24/16 06/15/18 Noreen Flores APRN FINANCE ASSISTANT [address] [place] [address] [place] [address] PCP - Assigned PCP 06/16/18 08/13/18 Noreen Flores APRN FINANCE ASSISTANT [address] [place] [address] [place] [address] PCP - General Nurse Practitioner 01/09/19 12/12/21 Sudha Greene, [place] [address] [address] PCP - General 11/01/22 Noreen Flores APRN FINANCE ASSISTANT [address] [place] [address] [place] [address] Assigned PCP 06/16/18 05/26/22 Kalyan Galvan Personal Advocate & Liaison (PAL) 08/08/19 04/26/21 Lashae Trevino, [facility] [address] [facility] [place] [address] Pharmacist Pharmacist 10/14/19 12/01/20 Eduardo Sharma MD [address] [place] [address] [place] [address] Assigned Sleep Provider 04/02/2005/07 [place] [address] [place] [address] Assigned Musculoskeletal Provider 04/02/20 08/24/20 Marcelo Artis PA-C [address] [facility] [address] [place] [address] Assigned Musculoskeletal Provider 08/25/20 08/20/21 Rodrigo Man PA-C [address] [facility] [address] [place] [address] Assigned Surgical Provider 08/25/20 11/27/20 Noreen Flores APRN FINANCE ASSISTANT [address] [place] [address] [place] [address] Assigned PCP 08/05/22 03/16/23 Agatha Null DPM, Podiatry/Foot and Ankle Surgery [address] [place] [address] [facility] [address] [place] [address] Assigned Musculoskeletal Provider 11/04/22 [facility] [address] [facility] [place] [phone] Assigned PCP 07/05/23 documented as of this encounter
--- OUTSIDE RECORDS SUMMARY | 2023-09-25 09:58 | XMS_ITS | Encounter Summary ---
Author Name Unknown Organization [facility] Address [address] [place] [address] Care Team Providers Care Supervisor Firearms Name Role Phone Unassigned, Provider Primary Care Provider Unava ilable Encounter Details Date Type Department Care Team (Latest Contact Info) Description 07/26/2004 [facility] Gavin Justice MD [address] [place] [address] Social History Tobacco Use Types Packs/Day Years [...] * Jerome Garg - 07/26/2004 12:00 AM MAINTENANCE MECHANIC DATE OF SURGERY: 07/26/2004 STAFF SURGEON: Gavin [...] nerve impingement. Therefore, she is referred to [facility] pain clinic for evaluation for epidural [...] Justice MD Transcribed: 07/26/2004 14:26:15 Doc #: [id number] cc: Jose Colin DO, Primary/Referring DO NOT SIGN UNLESS PRESENT FOR PROCEDURE I attest that I was present for and participated in the ma portions of this procedure(s) in compliance with the Health Care Financing Administration Teaching Physician Guidelines. Signed Date Regions Staff Physician 1 Page 2 Patient Name: PADMINI CHOI Visit Date: 07/26/2004 OUTPATIENT OPERATIVE REPORT CONFIDENTIAL MEDICAL RECORD [facility] [address] [place] [address] Page 1 Patient: PADMINI CHOI [id number] Date [facility] : 1965 Visit Date: 07/26/2004 OUTPATIENT OPERATIVE REPORT documented in this encounter Plan of Treatment Not on file documented as of this encounter Visit Diagnoses Not on filedocumented in this encounter Care Teams Supervisor Firearms Relationship Specialty Start Date End Date Unassigned, Provider [address] [place] [address] PCP - General 09/18/08 documented as of this encounter
--- OUTSIDE RECORDS SUMMARY | 2023-09-25 09:58 | XMS_ITS | Clinical Summary ---
Author Name Unknown Organization [facility] Address [address] [place] [address] Care Team Providers Care Trimmer Machine Operator Name Role Phone Unassigned, Provider Primary Care Provider Unava ilable Source Comments You are receiving this document as you are listed as the primary care provider,follow-up provider, or the patient has been referred to you for consultation.This is in compliance with the Medicare and[facility] Hospitalcaid EHR Incentive Program,which states Providers who transition their patient to another setting of careor provider of care or refers their patient to another provider of care shouldprovide summary care record for each transition of care or referral. [facility] Allergies Active Allergy Reactions Criticality Noted Date Comments Erythromycin Hives High 06/20/2001 Medications Medication Sig Dispensed Refills Start Date End Date Status OMEPRAZOLE (PRILOSEC) 20MG ORAL CAPSIndications:GERD (gastroesophageal reflux disease) One by mouth every day 30 x1yr 05/03/2007 Active Additional Information Patient taking differently: 20 mgOralBID, Reported on 05/25/2021 ASPIRIN 81 MG OR CHEW Take one tablet by mouth every day. 01/28/2008 Active topiramate (TOPAMAX) 50 MG tablet Take 50 mg by mouth daily. Active metFORMIN (GLUCOPHAGE) 500 MG tablet Take 500 mg by mouth two times a day. 05/03/2021 Active simvastatin (ZOCOR) 20 MG tablet Take 20 mg by mouth daily. 05/03/2021 Active DULoxetine (CYMBALTA) 60 MG capsule Take 60 mg by mouth daily. 05/13/2021 Active fluticasone propionate (FLONASE) 50 MCG/ACT nasal solution Place 50 mL into both nostrils daily. 05/20/2021 Active SUMAtriptan (IMITREX) 25 MG tablet Take 25 mg by mouth two times daily as needed. 05/17/2021 Active cholecalciferol (VITAMIND3) 50 MCG (1999 UT) tablet Take 2,000 Units by mouth two times a day. Active gabapentin (NEURONTIN) 300 MG capsule Take 600 mg by mouth daily at bedtime. 04/20/2021 Active Calcium Polycarbophil (FIBER) 625 MG Take 500 mg by mouth 4 times a day. Active methylPREDNISolone (MEDROL 21 TABLET DOSEPACK) 4 MG tablet Follow package directions 21 Tablet 05/25/2021 Active Active Problems Problem Noted Date [...] 03/09/2011,04/08/2010, 8 Influenza IIV4 (Quadrivalent ) 0.5mL (45034) 06/12/2017,03/23/2016,04/08/2015, 013 PPSV23 (Pneumovax) 10/06/2014 Pfizer Monovalent [...] Comments Blood Pressure 120/62 05/25/2021 11:09 AM SURGICAL TRAINING SPECIALIST Pulse 59 05/25/2021 11:09 AM SURGICAL TRAINING SPECIALIST Temperature 36.7 ??C (98.1 ??F) 05/25/2021 1 1:09 AM SURGICAL TRAINING SPECIALIST Respiratory Rate 16 08/23/2007 1:13 PM CDT Oxygen Saturation 97% 08/23/2007 1:13 PM CDT Inhaled Oxygen Concentration - - Weight 78.8 kg (173 lb 12.8 oz) 021 11:09 AM SURGICAL TRAINING SPECIALIST Height 160 cm (5' 3) 08/23/2007 1:13 [...] exists DTaP/Tdap/Td (2 - Tdap) 03/23/2026 03/23/2016, 06/16 Pneumococcal Aged Out 10/06/2014 No longer eligi [...] this topic Medical Devices Implanted Type Area Senior Energy Market Coordinator Device Identifier Shelf Expiration Date Model / Serial / Lot Kit Infuse Bone Graft Sm - [id number] Implanted:Qty : 1 on 04/15/2007 at [facility] Left: BACK [employer] [id number] / / [id number] Bone Canc Crushed 60cc - [id number] Implanted:Qty : 1 on 04/15/2007 at [facility] Left: BACK Nolan [id number] / OTS [id number] / Device Cage Ray Thrd 12x26 - [id number] Implanted:Qty : 2 on 04/15/2007 at [facility] Left: BACK Henna 7-1226 / / [id number] Cage Ray 52d41le - [id number] Implanted:Qty : 1 on 04/15/2007 at [facility] Left: BACK Nolan 05/11/2008 7-1426 / / [id number] Procedures Procedure Name Priority Date/Time Associated Diagnosis Comments LIPID PANEL, FAST > 12 HOUR Routine 10/07/2005 8:33 AM CDT Preventive Care Exam PAP TEST, ROUTINE Routine 10/02/2005 12: 00 AM CDT MAMMOGRAM, SCREENING Routine 05/15/2003 Screening Mamm-Mailg Neopl-Other from Last 3 Months or Most Recently Relevant to Health Maintenance Results * CHOLESTEROL LIPID PANEL FAST >12HR FAST (10/07/2005 8:33 AM CDT) Cholesterol 188 <200 mg/dl [facility] Triglyceride 95 <200 mg/dl [facility] HDL 46 >35 mg/dl [facility] LDL, Calc. 123 mg/dl [facility] Hours Fasting 12 hours [facility] 10/07/2005 8:33 AM CDT 10/07/2005 8:34 AM CDT Yun Flynn MD LAB_1 Performing Organization Address City/State/[facility] Phone Number [facility] [address] [place] [phone] * PAP TEST, ROUTINE (10/02/2005 12:00 AM CDT) Cytology, Pap (NOTE) Lot Associate Cytology Report Patient Name: PADMINI CHOI Taken: 10/02/2005 Received: 10/06/2005 Reported: 10/13/2005 Physician(s): YUN FLYNN ?Source of Specimen Liquid routine Pap, cervical/endocervi trisha: ?Specimen Adequacy ?Satisfactory for evaluation. ??Endocervical component present. ? Final Cytologic Interpretation/Res ult NEGATIVE FOR INTRAEPITHELIAL LESION OR MALIGNANCY (NILM) ?Other Cytologic Findings Endometrial cells present RECOMMEND clinical correlation Endometrial cells after age 40, particularly out of phase or after menopause, may be associated with benign endometrium, hormonal alterations and less commonly, endometrial/uterin e abnormalities. ? [facility]/10/13/2005 Electronically Signed Out By ? Kelly Elmore MD ([id number]) Rakel Valle, ??CT (ASCP) ?Pap Smear History ?Date of Last Menstrual Period: ? 09/22/05 ?Contraceptive History: ?Not Stated/Unknown ?Other Clinical Conditions: ?LAST PAP: N/A HPV reflex testing requested with interpretation of ASCUS ? [facility] 10/02/2005 10/06/2005 9:5 8 AM CDT Yun Flynn MD LAB_1 [place], [place] [phone] * MAMMOGRAM, SCREENING (05/15/2003) Anatomical Region Laterality Modality Breast Other Narrative Transcriptions Dusty Gonsalves - 05/15/2003 12:00 AM CSTCLINICAL DATA: Screening. EXAMINATION: Bilateral mammogram, 05/15/03. ACR BIRADS CATEGORY 1 - NEGATIVE MAMMOGRAM. FINDINGS: Nothing for malignancy. Dusty Gonsalves MD 10:42 A cc: AUDREY Moffett Radiology SP Blank Perez FOOD CART ATTENDANT, RING CONDUCTOR RAD_BI from Last 3 Months or Most Recently Relevant to Health Maintenance Advance Directives * Full Code (Latest Code Status on File) Date Activated Date Inactivated Comments 04/15/2007 8:03 AM 04/19/2007 8:53 PM Care Teams Trimmer Machine Operator Relationship Specialty Start Date End Date Unassigned, Provider [address] [place] [address] PCP - General 09/18/08
--- OUTSIDE RECORDS SUMMARY | 2023-09-25 09:58 | XMS_ITS | Encounter Summary ---
Author Name Unknown Organization [place] Address [address] [place] [address] Care Team Providers Care Draw Bench Operator Helper Name Role Phone Selma Good APRN JUDICIAL REGISTRAR Primary Care Pro vider Vanda Guerrero MD Primary Care Provider [phone] Vanda Guerrero MD Unavailable [phone] Jeana-JdNoreen castro APRN, CNP Unavailable Jeana-JdNoreen castro APRN, CNP Unavailable Jeana-JdNoreen castro APRN JUDICIAL REGISTRAR Primary Car e Provider Kalyan Galvan Unavailable Unavailable Lashae Trevino [facility] Unavailable [phone] Eduardo Sharma MD Unavailable Rios Monteiro MD Unavailable [phone] Marcelo Artis PA-C Unavailable [phone] Rodrigo Man PA-C Unavailable [phone] Jeana-JdNoreen castro APRN JUDICIAL REGISTRAR Unavailable Sudha Greene NP Primary Care Provider Agatha NullM, Podiatry /Foot and Ankle Surgery Unavailable [facility] Unavailable Encounter Details Date Type Department Care Team (Late st Contact Info) Description 04/17/2010 MyC Medical Advice [address] [place] [phone] Selma Good APRN JUDICIAL REGISTRAR [address] [place] [address] [place] [address] Social History Tobacco Use Types Packs/Day Years [...] respond to pt regarding her sodium intake. UNHAIRER documented in this encounter Plan of Treatment Not on file documented as of this encounter Visit Diagnoses Not on filedocumented in this encounter Additional Health Concerns Infection Onset Date Last Indicated Resolved Time Rule Out COVID-19 08/25/2020 08/25/2020 08/26/2020 3:23 PM CDT Rule Out COVID-19 11/26/2022 11/26/2022 11/27/2022 3:38 PM CDT documented as of this encounter Care Teams Draw Bench Operator Helper Relationship Specialty Start Date End Date Selma Good APRN JUDICIAL REGISTRAR [address] [place] [address] [place] [address] PCP - General 04/09/08 04/07/15 Vanda Guerrero MD [address] [place] [address] [place] [address] PCP - General Internal Medicine 04/08/15 01/08/19 Vanda Guerrero MD [address] [place] [address] [place] [address] PCP - Assigned PCP 07/24/16 06/15/18 Noreen Flores APRN JUDICIAL REGISTRAR [address] [place] [address] [place] [address] PCP - Assigned PCP 06/16/18 08/13/18 Noreen Flores APRN JUDICIAL REGISTRAR [address] [place] [address] [place] [address] PCP - General Nurse Practitioner 01/09/19 12/12/21 Sudha Greene, MAURICIO [address] [address] PCP - General 11/01/22 Noreen Flores APRN JUDICIAL REGISTRAR [address] [place] [address] [place] [address] Assigned PCP 06/16/18 05/26/22 Kalyan Galvan Personal Advocate & Liaison (PAL) 08/08/19 04/26/21 [facility] [facility] [place] [phone] Pharmacist Pharmacist 10/14/19 12/01/20 Eduardo Sharma MD [address] [facility] 103 [place] [id number] Assigned Sleep Provider 04/02/2005/07 [place] [address] [facility] 300 [place] [id number] Assigned Musculoskeletal Provider 04/02/20 08/24/20 Marcelo Artis PA-C [address] [address] Assigned Musculoskeletal Provider 08/25/20 08/20/21 Rodrigo Man PA-C [address] [address] Assigned Surgical Provider 08/25/20 11/27/20 Noreen Flores APRN JUDICIAL REGISTRAR [address] [place] [address] [place] [address] Assigned PCP 08/05/22 03/16/23 Agatha Null DPM, Podiatry/Foot and Ankle Surgery [address] [place] [address] 300 [place] [address] Assigned Musculoskeletal Provider 11/04/22 [facility] [address] [place], [place] [address] [address] Assigned PCP 07/05/23 documented as of this encounter
--- OUTSIDE RECORDS SUMMARY | 2023-09-25 09:58 | XMS_ITS | Encounter Summary ---
Author Name Unknown Organization [place] Address [address] [place] [address] Care Team Providers Care Warehouse Logistics Coordinator Name Role Phone Selma Good APRN MANAGER INTERNSHIP Primary Care Pro vider Vanda Guerrero MD Primary Care Provider [phone] Vanda Guerrero MD Unavailable [phone] Jeana-JdNoreen castro APRN, CNP Unavailable Jeana-JdNoreen castro APRN, CNP Unavailable Jeana-JdNoreen castro APRN MANAGER INTERNSHIP Primary Car e Provider Kalyan Galvan Unavailable Unavailable Lashae Trevino [facility] Unavailable [phone] Eduardo Sharma MD Unavailable Rios Monteiro MD Unavailable [phone] Marcelo Artis PA-C Unavailable [phone] Rodrigo Man PA-C Unavailable [phone] Jeana-JdNoreen castro APRN MANAGER INTERNSHIP Unavailable Sudha Greene NP Primary Care Provider Agatha NullM, Podiatry /Foot and Ankle Surgery Unavailable [facility] Unavailable Encounter Details Date Type Department Care Team (Late st Contact Info) Description 12/14/2009 [facility] Medical Advice [place] [id number] [facility] [place] [phone] Alejo Casas Social History [...] as of this encounter Care Teams Warehouse Logistics Coordinator Relationship Specialty Start Date End Date Selma Good APRN MANAGER INTERNSHIP [address] [place] [address] [place] [address] PCP - General 04/09/08 04/07/15 Vanda Guerrero MD [address] [place] [address] [place] [address] PCP - General Internal Medicine 04/08/15 01/08/19 Vanda Guerrero MD [address] [place] [address] [place] [address] PCP - Assigned PCP 07/24/16 06/15/18 Noreen Flores APRN MANAGER INTERNSHIP [address] [place] [address] [place] [address] PCP - Assigned PCP 06/16/18 08/13/18 Noreen Flores APRN MANAGER INTERNSHIP [address] [facility] [place] [address] PCP - General Nurse Practitioner 01/09/19 12/12/21 Sudha Greene NP [address] [address] PCP - General 11/01/22 Noreen Flores APRN MANAGER INTERNSHIP [address] [place] [address] [place] [address] Assigned PCP 06/16/18 05/26/22 Kalyan Galvan Personal Advocate & Liaison (PAL) 08/08/19 04/26/21 [facility] [address] [place] [address] [place] [address] Pharmacist Pharmacist 10/14/19 12/01/20 Eduardo Sharma MD [address] [place] [address] [place] [address] Assigned Sleep Provider 04/02/2005/07 [place] [address] [facility] [place] 300 [place] [address] Assigned Musculoskeletal Provider 04/02/20 08/24/20 Marcelo Artis PA-C [address] [facility] [place] 300 [place] [address] Assigned Musculoskeletal Provider 08/25/20 08/20/21 Rodrigo Man PA-C [address] [place] [address] [place] [address] Assigned Surgical Provider 08/25/20 11/27/20 Noreen Flores APRN MANAGER INTERNSHIP [address] [facility] [place] [address] Assigned PCP 08/05/22 03/16/23 Agatha Null DPM, Podiatry/Foot and Ankle Surgery [address] [place] 300 [place] [id number] Assigned Musculoskeletal Provider 11/04/22 [facility] [address] [facility] [address] [place] [address] Assigned PCP 07/05/23 documented as of this encounter
--- OUTSIDE RECORDS SUMMARY | 2023-09-25 09:58 | XMS_ITS | Encounter Summary ---
Author Name Unknown Organization [place] Address [address] [place] [address] Care Team Providers Care Production Metal Sprayer Name Role Phone Selma Good APRN CHIN STRAP CUTTER Primary Care Pro vider Vanda Guerrero MD Primary Care Provider [phone] Vanda Guerrero MD Unavailable [phone] Jeana-JdNoreen castro APRN, CNP Unavailable Jeana-JdNoreen castro APRN, CNP Unavailable Jeana-JdNoreen castro APRN CHIN STRAP CUTTER Primary Car e Provider Kalyan Galvan Unavailable Unavailable Lashae Trevino [facility] Unavailable [phone] Eduardo Sharma MD Unavailable Rios Monteiro MD Unavailable [phone] Marcelo Artis-Aleyda Unavailable [phone] Rodrigo Man-C Unavailable [phone] Jeana-JdNoreen castro APRN CHIN STRAP CUTTER Unavailable Sudha Greene NP Primary Care Provider Agatha NullM, Podiatry /Foot and Ankle Surgery Unavailable [facility] [place] Unavailable Reason for Visit * Reason Onset Date Comments Cellulitis 09/13/2010 not completely g one Encounter Details Date Type Department Care Team (Late st Contact Info) Description 09/13/2010 MyC Medical Advice [facility] [place] [address] [place] [address] [place] [phone] Selma Good, ICE BAG ASSEMBLER CHIN STRAP CUTTER [facility] [place] [address] Cellulitis (not completely gone ) Social History [...] as of this encounter Care Teams Production Metal Sprayer Relationship Specialty Start Date End Date Selma Good, SEAN CHIN STRAP CUTTER [address] [place] [address] [place] [address] PCP - General 04/09/08 04/07/15 Vanda Guerrero MD [address] [place] [address] [place] [address] PCP - General Internal Medicine 04/08/15 01/08/19 Vanda Guerrero MD [address] [place] [address] [place] [address] PCP - Assigned PCP 07/24/16 06/15/18 Noreen Flores APRN CHIN STRAP CUTTER [address] [place] [address] [place] [address] PCP - Assigned PCP 06/16/18 08/13/18 Noreen Flores APRN CHIN STRAP CUTTER [address] [place] [address] [place] [address] PCP - General Nurse Practitioner 01/09/19 12/12/21 Sudha Greene NP [address] [address] PCP - General 11/01/22 Noreen Flores APRN CHIN STRAP CUTTER [address] [place] [address] [place] [address] Assigned PCP 06/16/18 05/26/22 Kalyan Galvan Personal Advocate & Liaison (PAL) 08/08/19 04/26/21 [facility] [address] [place] [address] [place] [address] Pharmacist Pharmacist 10/14/19 12/01/20 Eduardo Sharma MD [address] [place] [address] Assigned Sleep Provider 04/02/2005/07 Rios Monteiro MD [address] [place] [address] 300 [place], [place] 304987 Assigned Musculoskeletal Provider 04/02/20 08/24/20 Marcelo Artis, PA-C [address] [place] [address] 300 [place] [address] Assigned Musculoskeletal Provider 08/25/20 08/20/21 Rodrigo Man PA-C [address] [facility] 450 [place] [address] Assigned Surgical Provider 08/25/20 11/27/20 Noreen Flores APRN CHIN STRAP CUTTER [address]305 [facility] [place] [address] Assigned PCP 08/05/22 03/16/23 Agatha Null DPM, Podiatry/Foot and Ankle Surgery [address] [place] [address] [place] [address] Assigned Musculoskeletal Provider 11/04/22 [facility] 3305 [facility] [place] [phone] Assigned PCP 07/05/23 documented as of this encounter
--- OUTSIDE RECORDS SUMMARY | 2023-09-25 09:58 | XMS_ITS | Encounter Summary ---
Author Name Unknown Organization [place] Address [address] [place] [address]46 Care Team Providers Care Microsoft Bi Architect Name Role Phone Selma Good APRN CUSTOMER SUPPORT MANAGER Primary Care Pro vider Vanda Guerrero MD Primary Care Provider [phone] Vanda Guerrero MD Unavailable [phone] Jeana-JdNoreen castro APRN, CNP Unavailable Jeana-JdNoreen castro APRN, CNP Unavailable Jeana-JdNoreen castro APRN CUSTOMER SUPPORT MANAGER Primary Car e Provider Kalyan Galvan Unavailable Unavailable Lashae Trevino [facility] Unavailable [phone] Eduardo Sharma MD Unavailable Rios Monteiro MD Unavailable [phone] Marcelo Artis-Aleyda Unavailable [phone] Rodrigo Man-C Unavailable [phone] Jeana-JdNoreen castro APRN CUSTOMER SUPPORT MANAGER Unavailable Sudha Greene NP Primary Care Provider Agatha NullM, Podiatry /Foot and Ankle Surgery Unavailable [facility] Unavailable Reason for Visit * Reason Onset Date Comments Appointment 08/10/2010 next diabetes? Encounter Details Date Type Department Care Team (Late st Contact Info) Description 08/10/2010 [facility] [address] [place] [address] [place] [phone] Selma Good APRN CUSTOMER SUPPORT MANAGER [facility] [place] [address] Appointment (next diabetes? ) Social History Tobacco [...] documented as of this encounter Care Teams Microsoft Bi Architect Relationship Specialty Start Date End Date Selma Good APRN CUSTOMER SUPPORT MANAGER [address] [place] [address] [place] [address] PCP - General 04/09/08 04/07/15 Vanda Guerrero MD [address] [place] [address] [place] [address] PCP - General Internal Medicine 04/08/15 01/08/19 Vanda Guerrero MD [address] [place] [address] [place] [address] PCP - Assigned PCP 07/24/16 06/15/18 Noreen Flores APRN CUSTOMER SUPPORT MANAGER [address] [place] [address] [place] [address] PCP - Assigned PCP 06/16/18 08/13/18 Noreen Flores APRN CUSTOMER SUPPORT MANAGER [address] [place] [address] [place] [address] PCP - General Nurse Practitioner 01/09/19 12/12/21 Sudha Greene NP [address] [address] PCP - General 11/01/22 Noreen Flores APRN CUSTOMER SUPPORT MANAGER [address] [place] [address] [place] [address] Assigned PCP 06/16/18 05/26/22 Kalyan Galvan Personal Advocate & Liaison (PAL) 08/08/19 04/26/21 [facility] [place] [phone] Pharmacist Pharmacist 10/14/19 12/01/20 Eduardo Sharma MD [address] [place] [address] Assigned Sleep Provider 04/02/2005/07 Rios Monteiro MD [address] [place] [address] [id number] Assigned Musculoskeletal Provider 04/02/20 08/24/20 Marcelo Artis, PA-C [address] [place] [address] 300 [place] [address] Assigned Musculoskeletal Provider 08/25/20 08/20/21 Rodrigo Man PA-C [address] [place] [place] [address] Assigned Surgical Provider 08/25/20 11/27/20 Noreen Flores APRN CUSTOMER SUPPORT MANAGER 3305 [facility] [place] [address] Assigned PCP 08/05/22 03/16/23 Agatha Null DPM, Podiatry/Foot and Ankle Surgery [address] [place] [address] [place] [address] Assigned Musculoskeletal Provider 11/04/22 [facility] [address] [facility] [address] [place] [phone] Assigned PCP 07/05/23 documented as of this encounter
--- OUTSIDE RECORDS SUMMARY | 2023-09-25 09:58 | XMS_ITS | Encounter Summary ---
Author Name Unknown Organization [place] Address [address] [place] [address] Care Team Providers Care Wire Cutter Name Role Phone Selma Good APRN BRICKLAYER HELPER Primary Care Pro vider Vanda Guerrero MD Primary Care Provider [phone] Vanda Guerrero MD Unavailable [phone] Jeana-JdNoreen castro APRN, CNP Unavailable Jeana-JdNoreen castro APRN, CNP Unavailable Jeana-JdNoreen castro APRN BRICKLAYER HELPER Primary Car e Provider Kalyan Galvan Unavailable Unavailable Lashae Trevino [facility] Unavailable [phone] Eduardo Sharma MD Unavailable Rios Monteiro MD Unavailable [phone] Marcelo Artis-Aleyda Unavailable [phone] Rodrigo Man-C Unavailable [phone] Jeana-JdNoreen castro APRN BRICKLAYER HELPER Unavailable Sudha Greene NP Primary Care Provider Agatha NullM, Podiatry /Foot and Ankle Surgery Unavailable [facility] [place] Unavailable Reason for Visit * Reason Onset Date Comments Patient Request 01/26/2010 Encounter Details Date Type Department Care Team (Late st Contact Info) Description 01/26/2010 [facility] [address] [place] [address] [place] [phone] Selma Good APRN BRICKLAYER HELPER [address] [facility] [place] [address] Patient Request Social History Tobacco Use Types [...] as of this encounter Care Teams Wire Cutter Relationship Specialty Start Date End Date Selma Good, SEAN BRICKLAYER HELPER [address] [place] [address] [place] [address] PCP - General 04/09/08 04/07/15 Vanda Guerrero MD [address] [place] [address] [place] [address] PCP - General Internal Medicine 04/08/15 01/08/19 Vanda Guerrero MD [address] [place] [address] [place] [address] PCP - Assigned PCP 07/24/16 06/15/18 Noreen Flores APRN BRICKLAYER HELPER [address] [place] [address] [place] [address] PCP - Assigned PCP 06/16/18 08/13/18 Noreen Flores APRN BRICKLAYER HELPER [address] [place] [address] [place] [address] PCP - General Nurse Practitioner 01/09/19 12/12/21 Sudah Greene NP [address] [address] PCP - General 11/01/22 Noreen Flores APRN BRICKLAYER HELPER [address] [place] [address] [place] [address] Assigned PCP 06/16/18 05/26/22 Kalyan Galvan Personal Advocate & Liaison (PAL) 08/08/19 04/26/21 Lashae Trevino, [facility] 14[address] [facility] [place] [address] Pharmacist Pharmacist 10/14/19 12/01/20 Eduardo Sharma MD [address] [facility] [address] [place] [address] Assigned Sleep Provider 04/02/2005/07 [place] [address] [facility] 300 [place] [address] Assigned Musculoskeletal Provider 04/02/20 08/24/20 Marcelo Artis, PA-C [address] [facility] 300 [place] [address] Assigned Musculoskeletal Provider 08/25/20 08/20/21 Rodrigo Man PA-C [address] [facility] 450 [place] [address] Assigned Surgical Provider 08/25/20 11/27/20 Noreen Flores APRN BRICKLAYER HELPER [address] [facility] [place] [phone] Assigned PCP 08/05/22 03/16/23 Agatha Null DPM, Podiatry/Foot and Ankle Surgery [address] [facility] 300 [place] [address] Assigned Musculoskeletal Provider 11/04/22 [facility] 3305 [facility] [place] [phone] Assigned PCP 07/05/23 documented as of this encounter
--- OUTSIDE RECORDS SUMMARY | 2023-09-25 09:58 | XMS_ITS | Encounter Summary ---
Author Name Unknown Organization [place] Address [address] [place] [address] Care Team Providers Care Credit Risk Analyst Name Role Phone Selma Good APRN CATERING DIRECTOR Primary Care Pro vider Vanda Guerrero MD Primary Care Provider [phone] Vanda Guerrero MD Unavailable [phone] Jeana-JdNoreen castro APRN, CNP Unavailable Jeana-JdNoreen castro APRN, CNP Unavailable Jeana-JdNoreen castro APRN CATERING DIRECTOR Primary Car e Provider Kalyan Galvan Unavailable Unavailable Lashae Trevino [facility] Unavailable [phone] Eduardo Sharma MD Unavailable Rios Monteiro MD Unavailable [phone] Marcelo Artis PA-C Unavailable [phone] Rodrigo Man PA-C Unavailable [phone] Jeana-JdNoreen castro APRN CATERING DIRECTOR Unavailable Sudha Greene NP Primary Care Provider Agatha NullM, Podiatry /Foot and Ankle Surgery Unavailable [facility] Unavailable Encounter Details Date Type Department Care Team (Late st Contact Info) Description 01/11/2010 [facility] Medical Advice [place] 725870 [facility] [place] [phone] Alejo Casas Social History [...] as of this encounter Care Teams Credit Risk Analyst Relationship Specialty Start Date End Date Selma Good APRN CATERING DIRECTOR [address] [place] [address] [place] [address] PCP - General 04/09/08 04/07/15 Vanda Guerrero MD [address] [place] [address] [place] [address] PCP - General Internal Medicine 04/08/15 01/08/19 Vanda Guerrero MD [address] [place] [address] [place] [address] PCP - Assigned PCP 07/24/16 06/15/18 Noreen Flores APRN CATERING DIRECTOR [address] [place] [address] [place] [address] PCP - Assigned PCP 06/16/18 08/13/18 Noreen Flores APRN CATERING DIRECTOR [address] [facility] [place] [address] PCP - General Nurse Practitioner 01/09/19 12/12/21 Sudha Greene NP [address] [address] PCP - General 11/01/22 Noreen Flores APRN CATERING DIRECTOR [address] [place] [address] [place] [address] Assigned PCP 06/16/18 05/26/22 Kalyan Galvan Personal Advocate & Liaison (PAL) 08/08/19 04/26/21 [facility] [address] [place] [address] [place] [address] Pharmacist Pharmacist 10/14/19 12/01/20 Eduardo Sharma MD [address] [place] [address] [place] [address] Assigned Sleep Provider 04/02/2005/07 [place] [address] [facility] [place] 300 [place] [address] Assigned Musculoskeletal Provider 04/02/20 08/24/20 Marcelo Artis PA-C [address] [facility] [place] [address] [place] [address] Assigned Musculoskeletal Provider 08/25/20 08/20/21 Rodrigo Man PA-C [address] [place] [address] [place] [address] Assigned Surgical Provider 08/25/20 11/27/20 Noreen Flores APRN CATERING DIRECTOR 3305 [facility] [place] [address] Assigned PCP 08/05/22 03/16/23 Agatha Null DPM, Podiatry/Foot and Ankle Surgery [address] [place] [address] [place] [id number] Assigned Musculoskeletal Provider 11/04/22 [facility] [address] [facility] [address] [place] [address] Assigned PCP 07/05/23 documented as of this encounter
--- OUTSIDE RECORDS SUMMARY | 2023-09-25 09:58 | XMS_ITS | Encounter Summary ---
Author Name Unknown Organization [facility] Address [address] [place] [address] Care Team Providers Care Alarm Adjuster Name Role Phone Selma Good APRN CRITICAL SYSTEMS TECHNICIAN Primary Care Pro vider Vanda Guerrero MD Primary Care Provider [phone] Vanda Guerrero MD Unavailable [phone] Jeana-JdNoreen castro APRN, CNP Unavailable Jeana-JdNoreen castro APRN, CNP Unavailable Jeana-JdNoreen castro APRN CRITICAL SYSTEMS TECHNICIAN Primary Car e Provider Kalyan Galvan Unavailable Unavailable Lashae Trevino [facility] Unavailable [phone] Eduardo Sharma MD Unavailable Rios Monteiro MD Unavailable [phone] Marcelo Artis-Aleyda Unavailable [phone] Rodrigo Man-C Unavailable [phone] Jeana-JdNoreen castro APRN CRITICAL SYSTEMS TECHNICIAN Unavailable Sudha Greene NP Primary Care Provider Agatha NullM, Podiatry /Foot and Ankle Surgery Unavailable [facility] Unavailable Reason for Referral * Referral not Required - Closed Specialty Diagnoses / Procedures Referred By Rylie garcia Referred To Contact Diagnoses Upper back pain Selma Good APRN CRITICAL SYSTEMS TECHNICIAN [address] [facility] [place] [address] [facility] [address]ast[address] [place] [address] Phone: [phone] Referral ID Status Reason Start Date Expiration Date Visits Re quested Visits Authorized [id number] Closed 01/18/2010 01/18/2010 1 1 Comments Coverage of these services is subject to the terms and limitations of your health insurance plan. Please call member services at your health plan with any benefit or coverage questions. [facility] referral to [facility] (Katelyn Colorado M.D.) [phone]. Any CT, MRI or procedures ordered by your specialist must be performed at a [facility] facility OR coordinated by your clinic's referral office at [phone]. If X-rays, CTs or MRIs have been performed, please contact the facility where they were done, to arrange for pickling machine operator prior to your scheduled appointment. Please bring this referral request to your appointment and present it to your specialist. Reason for Visit * Reason Onset Date Comments Referral 01/17/2010 Encounter Details Date Type Department Care Team (Late st Contact Info) Description 01/17/2010 [facility] Medical Advice [place] [address] [facility] [place] [id number] Selma Good, SEAN CRITICAL SYSTEMS TECHNICIAN [address] [facility] [place] [address] Referral Social History Tobacco Use Types Packs/Day [...] CONSULT PLASTIC SURGERY (01/31/2010) Selma Good APRN CRITICAL SYSTEMS TECHNICIAN REFERRAL documented in this encounter Visit Diagnoses Diagnosis Upper back pain- Primary Pain in thoracic spine documented in this encounter Additional Health Concerns Infection Onset Date Last Indicated Resolved Time Rule Out COVID-19 08/25/2020 08/25/2020 08/26/2020 3:23 PM CDT Rule Out COVID-19 11/26/2022 11/26/2022 11/27/2022 3:38 PM CDT documented as of this encounter Care Teams Alarm Adjuster Relationship Specialty Start Date End Date Selma Good APRN CRITICAL SYSTEMS TECHNICIAN [address] [place] [address] [place] [address] PCP - General 04/09/08 04/07/15 Vanda Guerrero MD [address] [place] [address] [place] [address] PCP - General Internal Medicine 04/08/15 01/08/19 Vanda Guerrero MD [address] [place] [address] [place] [address] PCP - Assigned PCP 07/24/16 06/15/18 Noreen Flores APRN CRITICAL SYSTEMS TECHNICIAN [address] [place] [address] [place] [address] PCP - Assigned PCP 06/16/18 08/13/18 Noreen Flores APRN CRITICAL SYSTEMS TECHNICIAN [address] [place] [address] [place] [address] PCP - General Nurse Practitioner 01/09/19 12/12/21 Sudha Greene NP [address] [address] PCP - General 11/01/22 Noreen Flores APRN CRITICAL SYSTEMS TECHNICIAN [address] [facility] [place] [address] Assigned PCP 06/16/18 05/26/22 Kalyan Galvan Personal Advocate & Liaison (PAL) 08/08/19 04/26/21 Lashae Trevino, [facility] [address] [place] [id number] Pharmacist Pharmacist 10/14/19 12/01/20 Eduardo Sharma MD [address] [place] [address] Assigned Sleep Provider 04/02/2005/07 [place] [address] [facility] [address] [place] [address] Assigned Musculoskeletal Provider 04/02/20 08/24/20 Marcelo Artis PA-C [address] [place] [address] Assigned Musculoskeletal Provider 08/25/20 08/20/21 Rodrigo Man PA-C [address] [place] [address] Assigned Surgical Provider 08/25/20 11/27/20 Noreen Flores APRN CRITICAL SYSTEMS TECHNICIAN [address] [facility] [place] [address] Assigned PCP 08/05/22 03/16/23 Agatha Null DPM, Podiatry/Foot and Ankle Surgery [address] [place] [address] Assigned Musculoskeletal Provider 11/04/22 Clinic - Nita [place] [facility] [address] [facility] [address] [place] [address] Assigned PCP 07/05/23 documented as of this encounter
--- OUTSIDE RECORDS SUMMARY | 2023-09-25 09:58 | XMS_ITS | Encounter Summary ---
Author Name Unknown Organization [facility] Address [address] [place] [address] Care Team Providers Care Foam Rubber Curer Name Role Phone Selma Good APRN PROJECT FACILITATOR Primary Care Pro vider Vanda Guerrero MD Primary Care Provider [phone] Vanda Guerrero MD Unavailable [phone] Jeana-JdNoreen castro APRN, CNP Unavailable Jeana-JdNoreen acstro APRN, CNP Unavailable Jeana-JdNoreen castro APRN PROJECT FACILITATOR Primary Car e Provider Kalyan Galvan Unavailable Unavailable Lashae Trevino [facility] Unavailable [phone] Eduardo Sharma MD Unavailable Rios Monteiro MD Unavailable [phone] Marcelo Artis-Aleyda Unavailable [phone] Rodrigo Man-C Unavailable [phone] Jeana-JdNoreen castro APRN PROJECT FACILITATOR Unavailable Sudha Greene NP Primary Care Provider [phone] Agatha NullM, Podiatry /Foot and Ankle Surgery Unavailable [facility] Unavailable Reason for Visit * Reason Onset Date Comments Orders 01/17/2010 mammo and U/Ss Encounter Details Date Type Department Care Team (Late st Contact Info) Description 01/17/[address] [facility] [address] [place] [address] [place] [phone] Selma Good APRN PROJECT FACILITATOR [address] [facility] [place] [address] Orders (mammo and U/Ss) Social History Tobacco [...] documented as of this encounter Care Teams Foam Rubber Curer Relationship Specialty Start Date End Date Selma Good, SEAN PROJECT FACILITATOR [address] [place] [address] [place] [address] PCP - General 04/09/08 04/07/15 Vanda Guerrero MD [address] [place] [address] [place] [address] PCP - General Internal Medicine 04/08/15 01/08/19 Vanda Guerrero MD [address] [place] [address] [place] [address] PCP - Assigned PCP 07/24/16 06/15/18 Noreen Flores APRN PROJECT FACILITATOR [address] [place] [address] [place] [address] PCP - Assigned PCP 06/16/18 08/13/18 Noreen Flores APRN PROJECT FACILITATOR [address] [place] [address] [place] [address] PCP - General Nurse Practitioner 01/09/19 12/12/21 Sudha Greene NP [address] [address] PCP - General 11/01/22 Noreen Flores APRN PROJECT FACILITATOR [address] [place] [address] [place] [address] Assigned PCP 06/16/18 05/26/22 Kalyan Galvan Personal Advocate & Liaison (PAL) 08/08/19 04/26/21 [facility] [address] [place] [address] [place] [address] Pharmacist Pharmacist 10/14/19 12/01/20 Eduardo Sharma MD [address] [address] Assigned Sleep Provider 04/02/2005/07 Rios Monteiro MD [address] [place] [address] Assigned Musculoskeletal Provider 04/02/20 08/24/20 Marcelo Artis, PA-C [address] [place] [address] [place] [address] Assigned Musculoskeletal Provider 08/25/20 08/20/21 Rodrigo Man PA-C [address] [facility] [address] [place] [address] Assigned Surgical Provider 08/25/20 11/27/20 Noreen Flores APRN PROJECT FACILITATOR [address] [facility] [place] [address] Assigned PCP 08/05/22 03/16/23 Agatha Null DPM, Podiatry/Foot and Ankle Surgery [address] [facility] [address] [place] [address] Assigned Musculoskeletal Provider 11/04/22 Clinic - [facility] [address] [facility] [address] [place] [id number] Assigned PCP 07/05/23 documented as of this encounter
--- OUTSIDE RECORDS SUMMARY | 2023-09-25 09:58 | XMS_ITS | Encounter Summary ---
Author Name Unknown Organization [facility] Address [address] [place] [address] Care Team Providers Care Reo Asset Manager Name Role Phone Selma Good APRN SCRAP BUNCH MAKER Primary Care Pro vider Vanda Guerrero MD Primary Care Provider [phone] Vanda Guerrero MD Unavailable [phone] Jeana-JdNoreen castro APRN, CNP Unavailable Jeana-JdNoreen castro APRN, CNP Unavailable Jeana-JdNoreen castro APRN SCRAP BUNCH MAKER Primary Car e Provider Kalyan Galvan Unavailable Unavailable Lashae Trevino [facility] Unavailable [phone] Eduardo Sharma MD Unavailable Rios Monteiro MD Unavailable [phone] Marcelo Artis-Aleyda Unavailable [phone] Rodrigo Man-C Unavailable [phone] Jeana-JdNoreen castro APRN SCRAP BUNCH MAKER Unavailable Sudha Greene NP Primary Care Provider [phone] Agatha NullM, Podiatry /Foot and Ankle Surgery Unavailable [facility] Unavailable Reason for Visit * Reason Onset Date Comments Patient Request 07/01/2009 Encounter Details Date Type Department Care Team (Late st Contact Info) Description 07/01/2009 MyC Medical Advice [facility] [address] [place] [address] [place] [phone] Selma Good APRN SCRAP BUNCH MAKER [address] [place] [address] [place] [address] Patient Request Social History Tobacco Use Types [...] documented as of this encounter Care Teams Reo Asset Manager Relationship Specialty Start Date End Date Selma Good APRN SCRAP BUNCH MAKER [address] [place] [address] [place] [address] PCP - General 04/09/08 04/07/15 Vanda Guerrero MD [address] [place] [address] [place] [address] PCP - General Internal Medicine 04/08/15 01/08/19 Vanda Guerrero MD [address] [place] [address] [place] [address] PCP - Assigned PCP 07/24/16 06/15/18 Noreen Flores APRN CNP [address] [facility] [place] [address] PCP - Assigned PCP 06/16/18 08/13/18 Noreen Florse APRN SCRAP BUNCH MAKER [address] [place] [address] [place] [address] PCP - General Nurse Practitioner 01/09/19 12/12/21 Sudha Greene NP [address] [address] PCP - General 11/01/22 Noreen Flores APRN SCRAP BUNCH MAKER [address] [place] [address] [place] [address] Assigned PCP 06/16/18 05/26/22 Kalyan Galvan Personal Advocate & Liaison (PAL) 08/08/19 04/26/21 Lashae Trevino, [facility] [address] [place] [address] [place] [phone] Pharmacist Pharmacist 10/14/19 12/01/20 Eduardo Sharma MD [address] [place] [address] Assigned Sleep Provider 04/02/2005/07 [place] [address] [facility] [address] [place], [place] [id number] Assigned Musculoskeletal Provider 04/02/20 08/24/20 Marcelo Artis PA-C [address] [facility] [address] [place], [place] [id number] Assigned Musculoskeletal Provider 08/25/20 08/20/21 Rodrigo Man PA-C [address] [place] [address] Assigned Surgical Provider 08/25/20 11/27/20 Noreen Flores APRN SCRAP BUNCH MAKER [address] [facility] [place] [address] Assigned PCP 08/05/22 03/16/23 Agatha Null DPM, Podiatry/Foot and Ankle Surgery [address] [place] [address] [place] [address] Assigned Musculoskeletal Provider 11/04/22 Clinic - [facility] [address] [facility] [place] [address] Assigned PCP 07/05/23 documented as of this encounter
--- OUTSIDE RECORDS SUMMARY | 2023-09-25 09:58 | XMS_ITS | Encounter Summary ---
Author Name Unknown Organization [facility] Address [address] [place] [address] Care Team Providers Care Technology Development Intern Name Role Phone Selma Good APRN CROP RANCH HAND Primary Care Pro vider Vanda Guerrero MD Primary Care Provider [phone] Vanda Guerrero MD Unavailable [phone] Jeana-JdNoreen castro APRN, CNP Unavailable Jeana-JdNoreen castro APRN, CNP Unavailable Jeana-JdNoreen castro APRN CROP RANCH HAND Primary Car e Provider Kalyan Galvan Unavailable Unavailable Lashae Trevino [facility] Unavailable [phone] Eduardo Sharma MD Unavailable Rios Monteiro MD Unavailable [phone] Marcelo Artis PA-C Unavailable [phone] Rodrigo Man PA-C Unavailable [phone] Jeana-JdNoreen castro APRN CROP RANCH HAND Unavailable Sudha Greene NP Primary Care Provider [phone] Agatha NullM, Podiatry /Foot and Ankle Surgery Unavailable [facility] Unavailable Encounter Details Date Type Department Care Team (Late st Contact Info) Description 07/21/2010 [facility] [place] [phone] Selma Good APRN CROP RANCH HAND [address] [place] [address] [place] [address] Social History Tobacco Use Types Packs/Day Years [...] documented as of this encounter Care Teams Technology Development Intern Relationship Specialty Start Date End Date Selma Good APRN CROP RANCH HAND [address] [place] [address] [place] [address] PCP - General 04/09/08 04/07/15 Vanda Guerrero MD [address] [place] [address] [place] [address] PCP - General Internal Medicine 04/08/15 01/08/19 Vanda Guerrero MD [address] [place] [address] [place] [address] PCP - Assigned PCP 07/24/16 06/15/18 Noreen Flores APRN CROP RANCH HAND [address] [place] [address] [place] [address] PCP - Assigned PCP 06/16/18 08/13/18 Noreen Flores APRN CROP RANCH HAND [address] [place] [address] [place] [address] PCP - General Nurse Practitioner 01/09/19 12/12/21 Sudha Greene NP [address] [address] PCP - General 11/01/22 Noreen Flores APRN CROP RANCH HAND [address] [place] [address] [place] [address] Assigned PCP 06/16/18 05/26/22 Kalyan Galvan Personal Advocate & Liaison (PAL) 08/08/19 04/26/21 [facility] [address] [place] [address] [place] [phone] Pharmacist Pharmacist 10/14/19 12/01/20 Eduardo Sharma MD [address] [facility] [address] [place] [address] Assigned Sleep Provider 04/02/2005/07 [place] [address] [place] [address] Assigned Musculoskeletal Provider 04/02/20 08/24/20 Marcelo Artis PARejiC [address] [place] [address] [place] [address] Assigned Musculoskeletal Provider 08/25/20 08/20/21 Rodrigo Man PA-C [address] [place] [address] Assigned Surgical Provider 08/25/20 11/27/20 Noreen Flores APRN CROP RANCH HAND [address] [facility] [place] [address] Assigned PCP 08/05/22 03/16/23 Agatha Null DPM, Podiatry/Foot and Ankle Surgery [address] [place] [address] Assigned Musculoskeletal Provider 11/04/22 [facility] [address] [facility] [place] [address] Assigned PCP 07/05/23 documented as of this encounter
== END 2023-09-25 09:49 | disposition home or self-care (01) ==
PROVIDERS: PCP Nurse Practitioner Family; Visit Provider Nurse Practitioner Family
DX: E11.9 Type 2 diabetes mellitus without complications (principal); R10.11 Right upper quadrant pain
CPT/HCPCS: 80053; 81001; 82150; 83690; 85025; 87086

== ENCOUNTER 2023-10-01 10:21 | Outpatient (CLI) | payer BC, SELFPAY ==
--- OUTSIDE RECORDS SUMMARY | 2023-10-01 10:23 | XMS_ITS | Clinical Summary ---
Author Name Unknown Organization [facility] Address [address] [place] [address] Care Team Providers Care Washing Tub Operator Name Role Phone Unavailable Primary Care Provider Unavailabl e Source Comments Patient records contain information from all sites at [facility]. For routine questions regarding patient records, call [phone] during business hours, M-F 8:00 AM - 5:00 PM Central Time. Record requests for emergency care only can be directed to [phone] at any time.[facility] Allergies Active Allergy Reactions Criticality Noted Date [...] TO DIRECT LDL Routine 08/08/2019 10:17 AM LEGAL CASHIER BI BREAST DIAGNOSTIC BILATERAL WITH TOMOSYNTHESIS Routine 09/30/2015 2:11 PM CDT from Last 3 Months or Most Recently Relevant to Health Maintenance
--- OUTSIDE RECORDS SUMMARY | 2023-10-01 10:23 | XMS_ITS ---
Author Name Unknown Organization [facility] Address [address] [place] [address] Care Team Providers Care Workplace Trainer And Assessor Name Role Phone Unavailable Unavailable Unavailable Surgery Details Not on file Complications Check Surgery Details section. Procedure Estimated Blood Loss Check Surgery Details section. Procedure Findings Check Surgery Details section. Procedure Specimens Taken Check Surgery Details section.
--- OUTSIDE RECORDS SUMMARY | 2023-10-01 10:23 | XMS_ITS | Clinical Summary ---
Author Name Unknown Organization [facility] Address [place], [place] [address] Care Team Providers Care Marketing Underwriter Name Role Phone Sudha Greene NP Primary Care Provider [phone] Allergies Active Allergy Reactions Criticality Noted Date [...] CDT Oxygen Saturation 97% 08/12/2020 6:13 PM MORTUARY TECHNICIAN Inhaled Oxygen Concentration - - Weight 79.4 [...] 16 Negative Negative 11/04/2021 10:35 AM CDT [facility] TYPE 18 Negative Negative 11/04/2021 10:35 AM CDT [facility] OTHER HIGH RISK TYPES Negative Negative 11/04/2021 10:35 AM CDT [facility] Tissue (Other) Client Collect / Unknown 10/14/2021 10:54 AM CDT 11/02/2021 5:19 PM CDT Narrative [facility] - 11/04/2021 10:35 AM CDT HPV types 16, 18, 31, 33, 35, 39, 45, 51, 52, 56, 58, 59, 66 and 68 DNA were undetectable or below the pre-set threshold. Methodology: Alaina Basilio 4800 HPV Test Doctor Unknown [facility] [address] [place] [address], from Last 3 Months or Most Recently Relevant to Health Maintenance Care Teams Marketing Underwriter Relationship Specialty Start Date End Date Sudha Greene NP [address] [place] [address] DustinDAVID [address] (work) PCP - General Emergency Medicine 03/27/22
--- OUTSIDE RECORDS SUMMARY | 2023-10-01 10:23 | XMS_ITS | Referral Summary ---
Author Name Unknown Organization [facility] Address [address] [place] [address] Care Team Providers Care Skein Spooler Name Role Phone Unavailable Primary Care Provider Unavailabl e Source Comments Patient records contain information from all sites at [facility]. For routine questions regarding patient records, call [phone] during business hours, M-F 8:00 AM - 5:00 PM Central Time. Record requests for emergency care only can be directed to [phone] at any time.[facility] Allergies Active Allergy Reactions Criticality Noted [...] TO DIRECT LDL Routine 08/08/2019 10:17 AM INSPECTOR SCALES BI BREAST DIAGNOSTIC BILATERAL WITH TOMOSYNTHESIS Routine 09/30/2015 2:11 PM CDT from Last 3 Months or Most Recently Relevant to Health Maintenance [facility] DAV[place] [phone]
--- OUTSIDE RECORDS SUMMARY | 2023-10-01 10:24 | XMS_ITS | Referral Summary ---
Author Name Unknown Organization [place] Address [address] [place] [address] Care Team Providers Care Knotting Machine Operator Name Role Phone Sudha Greene NP Primary Care Provider Agatha Null DPM, Podiatry /Foot and Ankle Surgery Unavailable [facility] Unavailable Allergies Active Allergy Reactions Criticality [...] sprayIndications:Al lergic rhinitis, unspecified seasonality, unspecified trigger Berkley 1-2 sprays into both nostrils daily 16 [...] use. Address next visit Family history of [place] (myocardial infarction) 08/2007 Overview: At early age, father [place] at age 40 Resolved Problems Problem Noted [...] Friends and Family Patient declined 08/08/2019 Attends Christianity Services Patient declined 07/13 Active Member of [...] Answer Date Recorded PHQ-2 Score 0 11/10/2020 [facility] [place] of Occupat ional Health - Occupational Stress [...] Comments Blood Pressure 128/80 05/11/2023 1:07 PM RIBBON LAPPER TENDER Pulse 87 02/26/2023 3:58 PM CDT Temperature 36.2 ??C (97.2 ??F) 02/26/2023 3:58 PM CD T Respiratory Rate 12 02/26/2023 3:13 PM CDT Oxygen Saturation 95% 02/26/2023 4:00 PM CDT Inhaled Oxygen Concentration - - Weight 87.1 kg (192 lb) 05/11/2023 1:07 PM RIBBON LAPPER TENDER Height 156 cm (5' 1.42) 02/26/2023 11:19 AM CDT Body Mass Index 35.79 02/26/2023 11:19 AM CDT Plan of Treatment Not on file Procedures Procedure Name Priority Date/Time Associated Diagnosis Comments COMPREHENSIVE METABOLIC PANEL Routine 11/10/2020 2:29 PM CDT Polyarthralgia EYE EXAM - HIM SCAN 05/17/2020 1 2:00 AM RIBBON LAPPER TENDER HEMOGLOBIN A1C Routine 01/13/2020 8:55 AM CDT Type 2 diabetes mellitus with complication, without long-term current use of insulin (H) FECAL COLORECTAL CANCER SCREEN FIT Routine 01/12/2020 8:00 AM CDT Health care maintenance ALBUMIN RANDOM URINE QUANTITATIVE Routine 08/08/2019 10:17 AM RIBBON LAPPER TENDER Routine general medical examination at a health care facility LIPID REFLEX TO DIRECT LDL PANEL Routine 08/08/2019 10:17 AM RIBBON LAPPER TENDER Routine general medical examination at a health [...] TYPES DNA CERVICAL Routine 05/03/2016 12:17 PM RIBBON LAPPER TENDER Cervical cancer screening PAP IMAGED THIN LAYER SCREEN Routine 05/03/2016 12:00 AM RIBBON LAPPER TENDER Cervical cancer screening C FOOT EXAM Routine 10/06/2014 9:47 AM CDT Type 2 diabetes, HbA1C goal < 7% (H) from Last 3 Months or Most Recently Relevant to Health Maintenance Results * (ABNORMAL) Comprehensive metabolic panel (11/10/2020 2:29 PM CDT) Sodium 142 133 - 144 mmol/L 11/10/2020 7:51 PM CDT [facility] Potassium 4.0 3.4 - 5.3 mmol/L 11/10/2020 7:51 PM CDT [facility] Chloride 112(H) 94 - 109 mmol/L 11/10/2020 7:51 PM CDT [facility] Carbon Dioxide 27 20 - 32 mmol/L 11/10/2020 7:58 PM CDT [facility] Anion Gap 4 3 - 14 mmol/L 11/10/2020 7:58 PM CDT [facility] Glucose 96 70 - 99 mg/dL 11/10/2020 7:58 PM CDT [facility] Urea Nitrogen 14 7 - 30 mg/dL 11/10/2020 7:58 PM CDT [facility] Creatinine 0.74 0.52 - 1.04 mg/dL 11/10/2020 7:58 PM T [facility] GFR Estimate >90 >60 mL/min/{1 .73_m2} 11/10/2020 7:58 PM CDT [facility] Comment: Non GFR Calc Starting 05/28/2018, serum creatinine based estimated GFR (eGFR) will be calculated using the Chronic Kidney Disease Epidemiology Collaboration (CKD-EPI) equation. GFR Estimate If Black >90 >60 mL/min/{1 .73_m2} 11/10/2020 7:58 PM T [facility] Comment: GFR Calc Starting 05/28/2018, serum creatinine based estimated GFR (eGFR) will be calculated using the Chronic Kidney Disease Epidemiology Collaboration (CKD-EPI) equation. Calcium 9.3 8.5 - 10.1 mg/dL 11/10/2020 7:58 PM CDT [facility] Bilirubin Total 0.6 0.2 - 1.3 mg/dL 11/10/2020 8:01 PM CDT [facility] Albumin 3.6 3.4 - 5.0 g/dL 11/10/2020 8:01 PM CDT [facility] Protein Total 7.2 6.8 - 8.8 g/dL 11/10/2020 8:01 PM CDT [facility] Alkaline Phosphatase 143 40 - 150 U/L 11/10/2020 8:01 PM CDT [facility] ALT 23 0 - 50 U/L 11/10/2020 8:01 PM CDT [facility] AST 16 0 - 45 U/L 11/10/2020 8:01 PM CDT [facility] Blood 11/10/2020 2:29 PM CDT 11/10/2020 3:04 PM CDT Kavin Fitzgerald PA-C LAB - BLO OD ORDERABLES Performing Organization Address City/[facility]/ZIP Co de Phone Number [facility] [address] [place] [address] * EYE EXAM - HIM SCAN (05/17/2020 12:00 AM RIBBON LAPPER TENDER) RETINOPATHY NEGATIVE 05/17/2020 Narrative Lauren Posada - 05/17/2020 12:00 AM [employer] LAPPER TENDER DIABETIC EYE EXAM [facility] Provider Outside OTHER * (ABNORMAL) A1C FUTURE 1yr (01/13/2020 8:55 AM CDT) Hemoglobin A1C 6.1(H) 0 - 5.6 % 01/13/2020 9:27 AM CDT [facility] Comment: Normal <5.7% Prediabetes 5.7-6.4% ??Diabetes 6.5% or higher - adopted from ADA consensus guidelines. Blood specimen (specimen) 01/13/2020 8:55 AM CDT 01/13/2020 8:56 AM CDT Noreen Flores APRN RADIOLOGY THERAPIST LAB - BLOOD ORDERABLES [facility] [address] [place] [address] * Fecal colorectal cancer screen (FIT) (01/12/2020 8:00 AM CDT) Occult Blood Scn FIT Negative NEG^Negati ve 01/18/2020 4:19 PM CDT [facility] Stool specimen (specimen) 01/12/2020 8:00 AM CDT 01/18/2020 1:16 PM CDT Noreen Flores APRN, CNP LAB - STOOLS ORDERABLES [facility] [address] [place] [address] * Albumin Random Urine Quantitative with Creat Ratio (08/08/2019 10:17 AM RIBBON LAPPER TENDER) Creatinine Urine 154 mg/dL 08/09/2019 1:54 [address] [address] [address] [facility] Albumin Urine mg/L 11 mg/L 08/09/2019 1:[address] [facility] Albumin Urine mg/g Cr 7.14 0 - 25 mg/g Cr 08/09/2019 1:[address] [facility] Urine specimen (specimen) 08/08/2019 10:17 AM [employer] LAPPER TENDER 08/08/2019 10:18 AM [employer] LAPPER TENDER Noreen Flores APRN, CNP LAB - URINE ORDERABLES Performing Organization Address City/[facility]/ZIP Co de Phone Number [facility] [address] [place] [address] * (ABNORMAL) Lipid panel reflex to direct LDL Fasting (08/08/2019 10:17 AM RIB[employer] LAPPER TENDER) Cholesterol 180 <200 mg/dL 08/08/2019 7:47 PM R[employer]ON LAPPER TENDER [facility] Triglycerides 153(H) <150 mg/dL 08/08/2019 7:47 PM RIBBON LAPPER TENDER [facility] Comment: Borderline high: ??150-199 mg/dl High: ? 200-499 mg/dl Very high: ? >499 mg/dl HDL Cholesterol 46(L) >49 mg/dL 0 7:47 PM [facility] LDL Cholesterol Calculated 103(H) <100 mg/dL 08/08/2019 7:47 PM [facility] Comment: Above desirable: ??100-129 mg/dl Borderline High: ??130-159 mg/dL High: ? 160-189 mg/dL Very high: ? >189 mg/dl Non HDL Cholesterol 134(H) <130 mg/dL 08/08/2019 7:47 PM [facility] Comment: Above Desirable: ??130-159 mg/dl Borderline high: ??160-189 mg/dl High: ? 190-219 mg/dl Very high: ? >219 mg/dl Blood specimen (specimen) 08/08/2019 10:17 AM [employer] LAPPER TENDER 08/08/2019 10:18 AM RIB[employer] LAPPER TENDER Noreen Flores APRN RADIOLOGY THERAPIST LAB - BLOOD ORDERABLES Performing Organization Address City/State/[facility] Co de Phone Number [facility] [address] [place] [address], [facility] [phone] * *MA Screening Digital Bilateral (09/03/2018 10:13 [...] Nonreactive NR^Nonrea ctive 04/10/2018 7:29 AM CDT [facility] Comment:HIV-1 p24 Ag & HIV-1 /HIV-2 Ab Not Detected Blood specimen (specimen) 04/09/2018 10:09 AM CDT 04/09/2018 10:15 AM CDT Noreen Flores APRN, CNP LAB - BLOOD ORDERABLES [facility] [address] * Hepatitis C Screen Reflex to HCV RNA Quant and Genotype (09/25/2016 2:30 PM CDT) Pathologist [facility] Hepatitis C Antibody Nonreactive Assay performance characteristics have not been established for newborns, infants, and children NR [facility] Blood specimen (specimen) 09/25/2016 2:30 PM CDT 09/26/2016 11:29 AM CDT Vanda Borja MD LAB - BLOOD ORDER ILDEFONSO [facility] [address] [place] [address] * HPV High Risk Types DNA Cervical (05/03/2016 12:17 PM RIB[employer] LAPPER TENDER) HPV 16 DNA Negative [facility]G [facility] HPV 18 DNA Negative NEG [facility] Other HR HPV Negative NEG [facility] Final Diagnosis This patient's [...] and its performance characteristics determined by the [facility]. It has not been cleared or approved by the FDA. The laboratory is regulated under CLIA as qualified to perform high-complexity testing. This test is used for clinical purposes. It should not be regarded as investigational or for research. [facility] Specimen Description Cervical Cells [id number] [facility] Cervical Cells 05/03/2016 12 :17 PM RIBBON LAPPER TENDER 05/03/2016 12:20 PM RIBBON LAPPER TENDER Vanda Borja MD LAB - BLOOD ORDER ILDEFONSO [facility] [address] [place] [address] * Pap imaged thin layer screen with HPV - recommended age 30 - 65 years (select HPV order below) (05/03/2016 12:00 AM RIBBON LAPPER TENDER) PAP RAMSEY Wren Report Patient Name: MEGAN CHOI MR#: [id number] Specimen #: [id number] Collected: 05/03/2016 Received: 05/05/2016 Reported: 05/09/2016 08:26 [...] TARIQ Wick (ASCP) Processed and screened at [facility], [facility] CLINICAL HISTORY: LMP: 10/30/11 Post Menopausal, Previous normal pap Date of Last Pap: 10/06/14, Papanicolaou Test Limitations: ??Cervical cytology is a screening test with limited sensitivity; regular screening is critical for cancer prevention; Pap tests are primarily effective for the diagnosis/preventi on of squamous cell carcinoma, not adenocarcinomas or other cancers. TESTING LAB LOCATION: [address] ??[id number] COLLECTION SITE: Client: ??[facility] Location: [facility] (R) COPATH Cytologic material (specimen) 05/03/2016 05/05/2016 10:22 AM RIBBON LAPPER TENDER Vanda Borja MD LAB - OPTIME CLIN ICAL SPECIMEN COPATH from Last 3 Months or Most Recently Relevant to Health Maintenance Care Teams Knotting Machine Operator Relationship Specialty Start Date End Date Sudha Greene NP [facility] - [address] [address] PCP - General 11/01/22 Agatha Null, MARÍA, Podiatry/Foot and Ankle Surgery [address] [place] [address] Assigned Musculoskeletal Provider 11/04/22 [facility] [place] [address] [id number] Assigned PCP 07/05/23
--- OUTSIDE RECORDS SUMMARY | 2023-10-01 10:24 | XMS_ITS | Encounter Summary ---
Author Name Unknown Organization [place] Address [address] [place] [address] Care Team Providers Care Senior Information Security Engineer Name Role Phone Noreen Flores APRN PREPARATOR Unavailable Sudha Greene NP Primary Care Provider Agatha Null DPM, Podiatry /Foot and Ankle Surgery Unavailable [facility] Unavailable Encounter Details Date Type Department Care Team (Late st Contact Info) Description 01/04/2023 [facility] Medical Advice [facility] [address] [place] [address] Tony Orozco Social History Tobacco [...] Friends and Family Patient declined 08/08/2019 Attends Religion Services Patient declined 07/13 Active Member of [...] Answer Date Recorded PHQ-2 Score 0 11/10/2020 [facility] of Occupat ional Health [...] this encounter Care Teams Senior Information Security Engineer Relationship Specialty Start Date End Date Sudha Greene NP [address] [address] PCP - General 11/01/22 Noreen Flores APRN PREPARATOR [facility] [place] [address] Assigned PCP 08/05/22 03/16/23 Agatha Null DPM, Podiatry/Foot and Ankle Surgery [address] [place] [address] Assigned Musculoskeletal Provider 11/04/22 [facility] [address] [place] [address] [place] [address] Assigned PCP 07/05/23 documented as of this encounter
--- OUTSIDE RECORDS SUMMARY | 2023-10-01 10:24 | XMS_ITS | Encounter Summary ---
Author Name Unknown Organization [place] Address [address] [place] [address] Care Team Providers Care Project Associate Name Role Phone Noreen Flores APRN SENIOR CONTROLS ENGINEER Unavailable Noreen Flores APRN SENIOR CONTROLS ENGINEER Primary Car e Provider Kalyan Galvan Unavailable Unavailable Eduardo Sharma MD Unavailable Marcelo Artis PA-C Unavailable [phone] Noreen Flores APRN SENIOR CONTROLS ENGINEER Unavailable Sudha Greene NP Primary Care Provider Agatha NullM, Podiatry /Foot and Ankle Surgery Unavailable [facility] Unavailable Reason for Visit * Reason Comments Medication Refill Encounter Details Date Type Department Care Team (Late st Contact Info) Description 01/06/2021 Refill [facility] [place] [address] [place] [address] Noreen Flores APRN SENIOR CONTROLS ENGINEER [address] [facility] [place] [phone] Medication Refill Social History Tobacco Use Types [...] Friends and Family Patient declined 08/08/2019 Attends Buddhist Services Patient declined 07/13 Active Member of [...] Answer Date Recorded PHQ-2 Score 0 11/10/2020 [facility] of Occupat ional Health - Occupational Stress [...] documented as of this encounter Care Teams Project Associate Relationship Specialty Start Date End Date Noreen Flores APRN SENIOR CONTROLS ENGINEER [address] [place] [address] [place] [address] PCP - General Nurse Practitioner 01/09/19 12/12/21 Sudha Greene NP [address] [address] PCP - General 11/01/22 Noreen Flores APRN SENIOR CONTROLS ENGINEER [address] [place] [address] [place] [address] Assigned PCP 06/16/18 05/26/22 Kalyan Galvan Personal Advocate & Liaison (PAL) 08/08/19 04/26/21 Eduardo Sharma MD [address] [facility] [address] [place] [address] Assigned Sleep Provider 04/02/2005/07 Marcelo Artis PARejiC [address] [place] [address] [address] [place] [address] Assigned Musculoskeletal Provider 08/25/20 08/20/21 Noreen Flores APRN SENIOR CONTROLS ENGINEER [address] [place] [address] [place] [address] Assigned PCP 08/05/22 03/16/23 Agatha Null, MARÍA, Podiatry/Foot and Ankle Surgery [address] [place] [address] Assigned Musculoskeletal Provider 11/04/22 [facility] - [place] [address] [id number] Assigned PCP 07/05/23 documented as of this encounter
--- OUTSIDE RECORDS SUMMARY | 2023-10-01 10:24 | XMS_ITS | Encounter Summary ---
Author Name Unknown Organization [place] Address [address] [place] [address] Care Team Providers Care System Specialist Name Role Phone Noreen Flores APRN OCCUPATIONAL THERAPY PROGRAM DIRECTOR Unavailable Noreen Flores APRN OCCUPATIONAL THERAPY PROGRAM DIRECTOR Primary Car e Provider Kalyan Galvan Unavailable Unavailable Eduardo Sharma MD Unavailable Marcelo Artis PA-C Unavailable Noreen Flores APRN OCCUPATIONAL THERAPY PROGRAM DIRECTOR Unavailable Sudha Greene NP Primary Care Provider Agatha NullM, Podiatry /Foot and Ankle Surgery Unavailable [facility] Unavailable Encounter Details Date Type Department Care Team (Late st Contact Info) Description 02/28/2021 MyC Medical Advice [facility] [address] [facility] [address] [place] [address] Lainey Wells Social History Tobacco [...] Start Date End Date Noreen Flores APRN OCCUPATIONAL THERAPY PROGRAM DIRECTOR [address] [place] [address] [place] [address] PCP - General Nurse Practitioner 01/09/19 12/12/21 Sudha Greene NP [facility] - [address] [address] PCP - General 11/01/22 Noreen Flores APRN OCCUPATIONAL THERAPY PROGRAM DIRECTOR [address] [place] [address] [place] [address] Assigned PCP 06/16/18 05/26/22 Kalyan Galvan Personal Advocate & Liaison (PAL) 08/08/19 04/26/21 Eduardo Sharma MD [address] [address] Assigned Sleep Provider 04/02/2005/07 Marcelo Artis, PA-C [address] [address] Assigned Musculoskeletal Provider 08/25/20 08/20/21 Noreen Flores APRN OCCUPATIONAL THERAPY PROGRAM DIRECTOR [address] [place] [address] [place] [address] Assigned PCP 08/05/22 03/16/23 Agatha Null DPM, Podiatry/Foot and Ankle Surgery [address] [facility] [facility] [address] [place] [address] Assigned Musculoskeletal Provider 11/04/22 [facility] [place] [address] [place] [address] Assigned PCP 07/05/23 documented as of this encounter
--- OUTSIDE RECORDS SUMMARY | 2023-10-01 10:24 | XMS_ITS | Encounter Summary ---
Author Name Unknown Organization [place] Address [address] [place] [address] Care Team Providers Care Proposal Review Analyst Name Role Phone Noreen Flores APRN RESEARCH LIBRARIAN Unavailable Sudha Greene NP Primary Care Provider Agatha Null DPM, Podiatry /Foot and Ankle Surgery Unavailable [facility] Unavailable Reason for Visit * Reason Onset Date Comments Forms 02/02/2023 Encounter Details Date Type Department Care Team (Late st Contact Info) Description 02/02/2023 [facility] Medical Advice [facility] [address] [facility] [address] [place], [place] [address] Agatha Null DPM, Podiatry/Foot and Ankle Surgery [address] [place] [address] Forms Social History Tobacco Use [...] Friends and Family Patient declined 08/08/2019 Attends Restoration Services Patient declined 07/13 Active Member of [...] Answer Date Recorded PHQ-2 Score 0 11/10/2020 [facility] [place] of Occupat ional Health - Occupational Stress [...] documented as of this encounter Care Teams Proposal Review Analyst Relationship Specialty Start Date End Date Sudha Greene NP [address] [address] PCP - General 11/01/22 Noreen Flores APRN CNP [address] [facility] [place] [address] Assigned PCP 08/05/22 03/16/23 Agatha Null DPM, Podiatry/Foot and Ankle Surgery [address] [place] [address] [place], [place] [address] [address] Assigned Musculoskeletal Provider 11/04/22 [facility] [address] [facility] [place] [address] Assigned PCP 07/05/23 documented as of this encounter
--- OUTSIDE RECORDS SUMMARY | 2023-10-01 10:24 | XMS_ITS | Encounter Summary ---
Author Name Unknown Organization [place] Address [address] [place] [address] Care Team Providers Care Forming Acid Dumper Name Role Phone Noreen Flores APRN PAYROLL BOOKKEEPER Unavailable Sudha Greene NP Primary Care Provider Agatha Null DPM, Podiatry /Foot and Ankle Surgery Unavailable [facility] Unavailable Encounter Details Date Type Department Care Team (Late st Contact Info) Description 01/12/2023 [facility] Medical Adv[facility] [place] [facility] [address] [place] [address] [place] [address] Agatha Null DPM, Podiatry/Foot and Ankle Surgery [address] [place] [address] Chronic pain of right ankle [...] Answer Date Recorded PHQ-2 Score 0 11/10/2020 [facility] [place] of Occupat ional Health - Occupational Stress [...] for providerreview/ signature. Haily Gandhi MSA, ATC Nurse Healthcare Manager documented in this encounter Plan of Treatment Not on file documented as of this encounter Visit Diagnoses Diagnosis Chronic pain of right ankle- Primary Peroneal tendon tear, right, subsequent encounter documented in this encounter Additional Health Concerns Assessment Noted Time PHQ-9 Depression Total Score: 7 11/11/19 21 1:31 PM CDT documented as of this encounter Care Teams Forming Acid Dumper Relationship Specialty Start Date End Date Sudha Greene NP [address] [address] PCP - General 11/01/22 Noreen Flores APRN CNP [address] [place] [address] [place] [address] Assigned PCP 08/05/22 03/16/23 Agatha Null DPM, Podiatry/Foot and Ankle Surgery [address] [place] [address] Assigned Musculoskeletal Provider 11/04/22 [facility] [place] [facility] [address] [place] [address] [place] [address] Assigned PCP 07/05/23 documented as of this encounter
--- OUTSIDE RECORDS SUMMARY | 2023-10-01 10:24 | XMS_ITS | Clinical Summary ---
Author Name Unknown Organization [place] Address [address] [place] [address] Care Team Providers Care Commercial Pilot Name Role Phone Sudha Greene NP Primary Care Provider Agatha Null DPM, Podiatry /Foot and Ankle Surgery Unavailable [facility] [place] [facility] Unavailable Allergies Active Allergy Reactions Criticality [...] sprayIndications:Al lergic rhinitis, unspecified seasonality, unspecified trigger [place] 1-2 sprays into both nostrils daily 16 [...] use. Address next visit Family history of PR (myocardial infarction) 08/2007 Overview: At early age, father PR at age 40 Resolved Problems Problem Noted [...] 4 Kidney Disease Brother 5 Cardiovascular Father PR early 40s, almodovar bsequent bipass Diabetes Father Hypertension Father Lipids Father Diabetes Maternal Grandfather Hypertension Maternal Grandfather Lipids Maternal Grandfather Diabetes Maternal Grandmother Hypertension Maternal Grandmother Lipids Maternal Grandmother Arthritis Mother OA Cardiovascular Mother PR age 72 Diabetes Mother Type II Hypertension [...] Answer Date Recorded PHQ-2 Score 0 11/10/2020 [facility] Occupat ional Health - Occupational [...] Comments Blood Pressure 128/80 05/11/2023 1:07 PM CAR PICK UP DRIVER Pulse 87 02/26/2023 3:58 PM CDT Temperature 36.2 ??C (97.2 ??F) 02/26/2023 3:58 PM CD T Respiratory Rate 12 02/26/2023 3:13 PM CDT Oxygen Saturation 95% 02/26/2023 4:00 PM CDT Inhaled Oxygen Concentration - - Weight 87.1 kg (192 lb) 05/11/2023 1:07 PM CAR PICK UP DRIVER Height 156 cm (5' 1.42) 02/26/2023 11:19 [...] - HIM SCAN 05/17/2020 1 2:00 AM CAR PICK UP DRIVER HEMOGLOBIN A1C Routine 01/13/2020 8:55 AM CDT Type 2 diabetes mellitus with complication, without long-term current use of insulin (H) FECAL COLORECTAL CANCER SCREEN FIT Routine 01/12/2020 8:00 AM CDT Health care maintenance ALBUMIN RANDOM URINE QUANTITATIVE Routine 08/08/2019 10:17 AM CAR PICK UP DRIVER Routine general medical examination at a health care facility LIPID REFLEX TO DIRECT LDL PANEL Routine 08/08/2019 10:17 AM CAR PICK UP DRIVER Routine general medical examination at a [facility] care facility MA SCREENING DIGITAL BILATERAL Routine 09/03/2018 10:13 AM CDT Health care maintenance HIV ANTIGEN ANTIBODY COMBO Routine 04/09/2018 10:09 AM CDT Encounter for screening for HIV HEPATITIS C SCREEN REFLEX TO HCV RNA QUANT AND GENOTYPE Routine 09/25/2016 2:30 PM CDT Need for hepatitis C screening test HPV HIGH RISK TYPES DNA CERVICAL Routine 05/03/2016 12:17 PM CAR PICK UP DRIVER Cervical cancer screening PAP IMAGED THIN LAYER SCREEN Routine 05/03/2016 12:00 AM CAR PICK UP DRIVER Cervical cancer screening C FOOT EXAM Routine 10/06/2014 9:47 AM CDT Type 2 diabetes, HbA1C goal < 7% (H) from Last 3 Months or Most Recently Relevant to Health Maintenance Results * (ABNORMAL) Comprehensive metabolic panel (11/10/2020 2:29 PM CDT) Sodium 142 133 - 144 mmol/L 11/10/2020 7:51 PM CDT [facility] Potassium 4.0 3.4 - 5.3 mmol/L 11/10/2020 7:51 PM T [facility] Chloride 112(H) 94 - 109 mmol/L 11/10/2020 7:51 PM T [facility] Carbon Dioxide 27 20 - 32 mmol/L 11/10/2020 7:58 PM T [facility] Anion Gap 4 3 - 14 mmol/L 11/10/2020 7:58 PM T [facility] Glucose 96 70 - 99 mg/dL 11/10/2020 7:58 PM T [facility] Urea Nitrogen 14 7 - 30 mg/dL 11/10/2020 7:58 PM T [facility] Creatinine 0.74 0.52 - 1.04 mg/dL 11/10/2020 7:58 PM [facility] GFR Estimate >90 >60 mL/min/{1 .73_m2} 11/10/2020 7:58 PM [facility] Comment: Non GFR Calc Starting 05/28/2018, serum creatinine based estimated GFR (eGFR) will be calculated using the Chronic Kidney Disease Epidemiology Collaboration (CKD-EPI) equation. GFR Estimate If Black >90 >60 mL/min/{1 .73_m2} 11/10/2020 7:58 PM [facility] Comment: GFR Calc Starting 05/28/2018, serum creatinine based estimated GFR (eGFR) will be calculated using the Chronic Kidney Disease Epidemiology Collaboration (CKD-EPI) equation. Calcium 9.3 8.5 - 10.1 mg/dL 11/10/2020 7:58 PM T [facility] Bilirubin Total 0.6 0.2 - 1.3 mg/dL 11/10/2020 8:01 PM T [facility] Albumin 3.6 3.4 - 5.0 g/dL 11/10/2020 8:01 PM T [facility] Protein Total 7.2 6.8 - 8.8 g/dL 11/10/2020 8:01 PM T [facility] Alkaline Phosphatase 143 40 - 150 U/L 11/10/2020 8:01 PM CDT [facility] ALT 23 0 - 50 U/L 11/10/2020 8:01 PM CDT [facility] AST 16 0 - 45 U/L 11/10/2020 8:01 PM CDT [facility] Blood 11/10/2020 2:29 PM CDT 11/10/2020 3:04 PM CDT Kavin Fitzgerald PA-C LAB - BLO OD ORDERABLES [facility] [address] [place] [address] * EYE EXAM - HIM SCAN (05/17/2020 12:00 AM CAR PICK UP DRIVER) Pathologist [facility] RETINOPATHY NEGATIVE 05/17/2020 Narrative Lauren Posada - 05/17/2020 12:00 AM CAR PICK UP DRIVER DIABETIC EYE EXAM [facility] Provider Outside OTHER * (ABNORMAL) A1C FUTURE 1yr (01/13/2020 8:55 AM CDT) [facility] Hemoglobin A1C 6.1(H) 0 - 5.6 % 01/13/2020 9:27 AM CDT [facility] Comment: Normal <5.7% Prediabetes 5.7-6.4% ??Diabetes 6.5% or higher - adopted from ADA consensus guidelines. Blood specimen (specimen) 01/13/2020 8:55 AM CDT 01/13/2020 8:56 AM CDT Noreen Flores APRN SCREW DRIVER OPERATOR LAB - BLOOD ORDERABLES [facility] [address] [place] [address] * Fecal colorectal cancer screen (FIT) (01/12/2020 8:00 AM CDT) [facility] Occult Blood Scn FIT Negative NEG^Negati ve 01/18/2020 4:19 PM CDT [facility] Stool specimen (specimen) 01/12/2020 8:00 AM CDT 01/18/2020 1:16 PM CDT Noreen Flores APRN, CNP LAB - STOOLS ORDERABLES [facility] [address] [place] [address] * Albumin Random Urine Quantitative with Creat Ratio (08/08/2019 10:17 AM CAR PICK UP DRIVER) Creatinine Urine 154 mg/dL 08/09/2019 1:54 PM CAR PICK UP DRIVER [facility] Albumin Urine mg/L 11 mg/L 08/09/2019 1:59 PM CAR PICK UP DRIVER [facility] Albumin Urine mg/g Cr 7.14 0 - 25 mg/g Cr 08/09/2019 1:59 PM CAR PICK UP DRIVER [facility] Urine specimen (specimen) 08/08/2019 10:17 AM CAR PICK UP DRIVER 08/08/2019 10:18 AM CAR PICK UP DRIVER Noreen Flores APRN, CNP LAB - URINE ORDERABLES [facility] [address] [place] [address] * (ABNORMAL) Lipid panel reflex to direct LDL Fasting (08/08/2019 10:17 AM CAR PICK UP DRIVER) Cholesterol 180 <200 mg/dL 08/08/2019 7:47 PM [facility] Triglycerides 153(H) <150 mg/dL 08/08/2019 7:47 PM [facility] Comment: Borderline high: ??150-199 mg/dl High: ? 200-499 mg/dl Very high: ? >499 mg/dl HDL Cholesterol 46(L) >49 mg/dL 0 7:47 PM CAR PICK UP DRIVER [facility] LDL Cholesterol Calculated 103(H) <100 mg/dL 08/08/2019 7:47 PM [facility] Comment: Above desirable: ??100-129 mg/dl Borderline High: ??130-159 mg/dL High: ? 160-189 mg/dL Very high: ? >189 mg/dl Non HDL Cholesterol 134(H) <130 mg/dL 08/08/2019 7:47 PM [facility] Comment: Above Desirable: ??130-159 mg/dl Borderline high: ??160-189 mg/dl High: ? 190-219 mg/dl Very high: ? >219 mg/dl Blood specimen (specimen) 08/08/2019 10:17 AM CAR PICK UP DRIVER 08/08/2019 10:18 AM CAR PICK UP DRIVER Noreen Flores APRN SCREW DRIVER OPERATOR LAB - BLOOD ORDERABLES Performing Organization Address City/State/[facility] Co de Phone Number [facility] [address] [place] [address], [facility] [phone] * *MA Screening Digital Bilateral (09/03/2018 10:13 AM CDT) Anatomical Region Laterality Modality Breast Bilateral Mammography Impressions 09/03/2018 10:30 AM CDT IMPRESSION: BI-RADS CATEGORY: 1 - ??Negative. RECOMMENDED FOLLOW-UP: Annual Mammography. PANCHITO DESIR MD Narrative 09/03/2018 10:30 AM CDT SCREENING MAMMOGRAM, BILATERAL, DIGITAL w/CAD, 09/03/2018 10:29 AM BREAST DENSITY: Scattered fibroglandular densities. CLINICAL INFORMATION: Breast screening. ??[facility], 09/30/15, 04/16/15, 05/27/13 FINDINGS: Negative. Stable exam. Screening exam in one year recommended. Procedure Note Panchito Desir MD - 09/03/2018 SCREENING MAMMOGRAM, BILATERAL, DIGITAL w/CAD, 09/03/2018 10:29 AM BREAST DENSITY: Scattered fibroglandular densities. CLINICAL INFORMATION: Breast screening. [facility], 09/30/15, 04/16/15, 05/27/13 FINDINGS: Negative. Stable exam. Screening exam in one year recommended. IMPRESSION: BI-RADS CATEGORY: 1 - Negative. RECOMMENDED FOLLOW-UP: Annual Mammography. PANCHITO DESIR MD Noreen Flores APRN, CNP IMG MAMMOGRAPHY ORDERABLES * HIV Antigen Antibody Combo (04/09/2018 10:09 AM CDT) HIV Antigen Antibody Combo Nonreactive NR^Nonrea ctive 04/10/2018 7:29 AM CDT [facility] Comment:HIV-1 p24 Ag & HIV-1 /HIV-2 Ab Not Detected Blood specimen (specimen) 04/09/2018 10:09 AM CDT 04/09/2018 10:15 AM CDT Noreen Flores APRN, CNP LAB - BLOOD ORDERABLES [facility] [address] * Hepatitis C Screen Reflex to HCV RNA Quant and Genotype (09/25/2016 2:30 PM CDT) Pathologist [facility] Hepatitis C Antibody Nonreactive Assay performance characteristics have not been established for newborns, infants, and children NR [facility] Blood specimen (specimen) 09/25/2016 2:30 PM CDT 09/26/2016 11:29 AM CDT Vanda Borja MD LAB - BLOOD ORDER ILDEFONSO [facility] [address] [place] [address] * HPV High Risk Types DNA Cervical (05/03/2016 12:17 PM CAR PICK UP DRIVER) HPV 16 DNA Negative [facility]G [facility] HPV 18 DNA Negative NEG [facility] Other HR HPV Negative NEG [facility] Final Diagnosis This patient's sample is negative [...] its performance characteristics determined by the [facility], Molecular Diagnostics Laboratory. It has not been cleared or approved by the FDA. The laboratory is regulated under CLIA as qualified to perform high-complexity testing. This test is used for clinical purposes. It should not be regarded as investigational or for research. [facility] Specimen Description Cervical Cells [id number] [facility] Cervical Cells 05/03/2016 12 :17 PM CAR PICK UP DRIVER 05/03/2016 12:20 PM CAR PICK UP DRIVER Vanda Borja MD LAB - BLOOD ORDER ILDEFONSO [facility] [address] [place] [address] * Pap imaged thin layer screen with HPV - recommended age 30 - 65 years (select HPV order below) (05/03/2016 12:00 AM CAR PICK UP DRIVER) PAP RAMSEY Wren Report Patient Name: MEGAN WONG MR#: [id number] Specimen #: [id number] Collected: 05/03/2016 Received: 05/05/2016 Reported: 05/09/2016 08:26 [...] Wick (ASCP) Processed and screened at [facility] CLINICAL HISTORY: LMP: 10/30/11 Post Menopausal, Previous normal pap Date of Last Pap: 10/06/14, Papanicolaou Test Limitations: ??Cervical cytology is a screening test with limited sensitivity; regular screening is critical for cancer prevention; Pap tests are primarily effective for the diagnosis/preventi on of squamous cell carcinoma, not adenocarcinomas or other cancers. TESTING LAB LOCATION: [address] ??[address] COLLECTION SITE: Client: ??[facility] Location: [facility]FP (R) COPATH Cytologic material (specimen) 05/03/2016 05/05/2016 10:22 AM CAR PICK UP DRIVER Vanda Borja MD LAB - OPTIME CLIN ICAL SPECIMEN COPATH from Last 3 Months or Most Recently Relevant to Health Maintenance Care Teams Commercial Pilot Relationship Specialty Start Date End Date Sudha Greene NP [facility] [address] [place] [address] PCP - General 11/01/22 Agatha Null, MARÍA, Podiatry/Foot and Ankle Surgery [address] [place] [address] Assigned Musculoskeletal Provider 11/04/22 [facility] [address] [address] Assigned PCP 07/05/23
--- OUTSIDE RECORDS SUMMARY | 2023-10-01 10:24 | XMS_ITS | Encounter Summary ---
Author Name Unknown Organization [place] Address [address] [place] [address] Care Team Providers Care Freezer Worker Name Role Phone Noreen Flores APRN SWIMMER Unavailable Noreen Flores APRN SWIMMER Primary Car e Provider Marcelo Artis PA-C Unavailable [phone] Noreen Flores APRN SWIMMER Unavailable Sudha rGeene NP Primary Care Provider Agatha Null DPM, Podiatry /Foot and Ankle Surgery Unavailable [facility] Unavailable Encounter Details Date Type Department Care Team (Late st Contact Info) Description 07/25/2021 MyC Medical Advice [facility] [address] [facility] [address] [place] [address] Christi Panda MA Social History Tobacco [...] Answer Date Recorded PHQ-2 Score 0 11/10/2020 [facility] [place] of Occupat ional Health - Occupational Stress [...] documented as of this encounter Care Teams Freezer Worker Relationship Specialty Start Date End Date Noreen Flores APRN SWIMMER [address] [place], [place] [address] PCP - General Nurse Practitioner 01/09/19 12/12/21 Sudha Greene NP [address] [address] PCP - General 11/01/22 Noreen Flores APRN SWIMMER [address] [place] [address] [place] [address] Assigned PCP 06/16/18 05/26/22 Marcelo Artis PA-C [address] [place] [address] Assigned Musculoskeletal Provider 08/25/20 08/20/21 Noreen Flores APRN SWIMMER [address] [place] [address] [place] [address] Assigned PCP 08/05/22 03/16/23 Agatha Null DPM, Podiatry/Foot and Ankle Surgery [address] [place] [address] [address] [place] [address] Assigned Musculoskeletal Provider 11/04/22 [facility] [address] [place] [address] Assigned PCP 07/05/23 documented as of this encounter
--- OUTSIDE RECORDS SUMMARY | 2023-10-01 10:25 | XMS_ITS | Encounter Summary ---
Author Name Unknown Organization [place] Address [address] [place] [address] Care Team Providers Care Aluminum Molding Machine Operator Name Role Phone Noreen Flores APRN, CNP Unavailable Noreen Flores APRN, CNP Primary Car e Provider Kalyan Galvan Unavailable Unavailable Lashae Trevino [facility] Unavailable Eduardo Sharma MD Unavailable Rios Monteiro MD Unavailable [phone] Marcelo Artis PA-C Unavailable Rodrigo Man PA-C Unavailable [phone] Noreen Flores APRN, CNP Unavailable Sudha Greene NP Primary Care Provider Agatha Null DPM, Podiatry /Foot and Ankle Surgery Unavailable [facility] Unavailable Reason for Visit * Reason Comments Medication Refill Encounter Details Date Type Department Care Team (Late st Contact Info) Description 07/10/2020 Refill [facility] [place] [address] [place] [address] Noreen Flores APRN CNP [address] [facility] [place] [address] Medication Refill Social [...] Answer Date Recorded PHQ-2 Score 2 07/25/2018 [facility] of Occupat ional Health - Occupational [...] Desirae Champagne RN - 07/13/2020 11:10 AM BRIDGE MECHANIC Routing refill request to provider for review/approval because: Patient taking 8-10 sumatriptan a month. Desirae Champagne RN on 07/13/2020 at 11:11 AM GE MECHANIC * Telephone Encounter - Lainey Wells - 07/12/2020 2:22 PM CST The pt called back and she says that she takes anywhere from 8-10 a month. Lainey Wells on 07/12/2020 at 2:25 PM GE MECHANIC * Telephone Encounter - Lainey Wells - 07/12/2020 10:59 AM CST 1st attempt l/m. Lainey Wells on 07/12/2020 at 10:59 AM GE MECHANIC * Telephone Encounter - Desirae Champagne RN - 07/12/2020 10:02 AM BRIDGE MECHANIC Please call patient and see how many doses of sumatriptan patient has used in the past month. Should be using 8 doses or fewer per month. Desirae Champagne RN on 07/12/2020 at 10:07 AM GE MECHANIC documented in this encounter Plan of [...] documented as of this encounter Care Teams Aluminum Molding Machine Operator Relationship Specialty Start Date End Date Noreen Flores APRN PRECISION INSTRUMENT MAKER [address] [facility] [place] [address] PCP - General Nurse Practitioner 01/09/19 12/12/21 Sudha Greene NP [address] [address] PCP - General 11/01/22 Noreen Flores APRN PRECISION INSTRUMENT MAKER [address] [place] [address] [place] [address] Assigned PCP 06/16/18 05/26/22 Kalyan Galvan Personal Advocate & Liaison (PAL) 08/08/19 04/26/21 [facility] [address] [place] [address] [place] [address] Pharmacist Pharmacist 10/14/19 12/01/20 Eduardo Sharma MD [address] [address] Assigned Sleep Provider 04/02/2005/07 [place] [address] [address] Assigned Musculoskeletal Provider 04/02/20 08/24/20 Marcelo Artis PA-C [address] [address] Assigned Musculoskeletal Provider 08/25/20 08/20/21 Rodrigo Man PA-C [address] [place] [address] Assigned Surgical Provider 08/25/20 11/27/20 Noreen Flores APRN PRECISION INSTRUMENT MAKER [address] [facility] [place] [address] Assigned PCP 08/05/22 03/16/23 Agatha Null DPM, Podiatry/Foot and Ankle Surgery [address] [place] [address] Assigned Musculoskeletal Provider 11/04/22 [facility] [address] [facility] [place] [id number] Assigned PCP 07/05/23 documented as of this encounter
--- OUTSIDE RECORDS SUMMARY | 2023-10-01 10:25 | XMS_ITS | Encounter Summary ---
Author Name Unknown Organization [place] Address [address] [place] [address] Care Team Providers Care Blower Operator Name Role Phone Noreen Flores APRN SALOONKEEPER Unavailable Noreen Flores APRN SALOONKEEPER Primary Car e Provider Kalyan Galvan Unavailable Unavailable Lashae Trevino [facility] Unavailable [phone] Eduardo Sharma MD Unavailable Marcelo Artis PA-C Unavailable Rodrigo Man PA-C Unavailable [phone] Noreen Flores APRN SALOONKEEPER Unavailable Sudha Greene NP Primary Care Provider Agatha Null DPM, Podiatry /Foot and Ankle Surgery Unavailable [facility] Unavailable Encounter Details Date Type Department Care Team (Late st Contact Info) Description 10/28/2020 [facility] [place] [address] [facility] [address] [place] [address] Lashae Trevino, [facility] [address] [facility] [place] [address] Social History Tobacco Use [...] Answer Date Recorded PHQ-2 Score 2 07/25/2018 [facility] [place] of Occupat ional Health - Occupational Stress [...] documented as of this encounter Care Teams Blower Operator Relationship Specialty Start Date End Date Noreen Flores APRN SALOONKEEPER [facility] [place] [address] PCP - General Nurse Practitioner 01/09/19 12/12/21 Sudha Greene NP [address] [address] PCP - General 11/01/22 Noreen Flores APRN SALOONKEEPER [address] [place] [address] [place] [address] Assigned PCP 06/16/18 05/26/22 Kalyan Galvan Personal Advocate & Liaison (PAL) 08/08/19 04/26/21 [facility] [address] [place] [address] [place] [address] Pharmacist Pharmacist 10/14/19 12/01/20 Eduardo Sharma MD [address] [facility] [address] [place] [address] Assigned Sleep Provider 04/02/2005/07 Marcelo Artis PA-C [id number] [place] [address] [address] [place] [address] Assigned Musculoskeletal Provider 08/25/20 08/20/21 Rodrigo Man PA-C [address] [place] [address] Assigned Surgical Provider 08/25/20 11/27/20 Noreen Flores APRN SALOONKEEPER [address] [facility] [place] [address] Assigned PCP 08/05/22 03/16/23 Agatha Null DPM, Podiatry/Foot and Ankle Surgery [address] [place] [id number] Assigned Musculoskeletal Provider 11/04/22 [facility] [address] [facility] [place] [address] Assigned PCP 07/05/23 documented as of this encounter
--- OUTSIDE RECORDS SUMMARY | 2023-10-01 10:25 | XMS_ITS | Encounter Summary ---
Author Name Unknown Organization [place] Address [address] [place] [address] Care Team Providers Care Clinical Laboratory Assistant Name Role Phone Noreen Flores APRN CUT LACE MACHINE OPERATOR Unavailable Noreen Flores APRN CUT LACE MACHINE OPERATOR Primary Car e Provider Kalyan Galvan Unavailable Unavailable Lashae Trevino [facility] Unavailable [phone] Eduardo Sharma MD Unavailable Marcelo Artis PA-C Unavailable Rodrigo Man PA-C Unavailable [phone] Noreen Flores APRN CUT LACE MACHINE OPERATOR Unavailable Sudha Greene NP Primary Care Provider Agatha Null DPM, Podiatry /Foot and Ankle Surgery Unavailable [facility] - [facility] Unavailable Encounter Details Date Type Department Care Team (Late st Contact Info) Description 10/20/2020 [facility] [address] [facility] [address] [place] [address] Lainey Wells [...] Answer Date Recorded PHQ-2 Score 2 07/25/2018 [facility] of Occupat ional Health - [...] as of this encounter Care Teams Clinical Laboratory Assistant Relationship Specialty Start Date End Date Noreen Flores APRN CUT LACE MACHINE OPERATOR [address] [facility] [place] [address] PCP - General Nurse Practitioner 01/09/19 12/12/21 Sudha Greene, MAURICIO [address] [address] PCP - General 11/01/22 Noreen Flores APRN CUT LACE MACHINE OPERATOR [address] [place] [address] [place] [address] Assigned PCP 06/16/18 05/26/22 Kalyan Galvan Personal Advocate & Liaison (PAL) 08/08/19 04/26/21 Lashae Trevino, [facility] [place] [address] Pharmacist Pharmacist 10/14/19 12/01/20 Eduardo Sharma MD [address] [place] [address] Assigned Sleep Provider 04/02/2005/07 Marcelo Artis PA-C [address] [facility] [address] [place] [address] Assigned Musculoskeletal Provider 08/25/20 08/20/21 Rodrigo Man PA-C [address] [place] [address] [place] [address] Assigned Surgical Provider 08/25/20 11/27/20 Noreen Flores APRN CUT LACE MACHINE OPERATOR [address] [facility] [place] [address] Assigned PCP 08/05/22 03/16/23 Agatha Null DPM, Podiatry/Foot and Ankle Surgery [address] [place] [address] Assigned Musculoskeletal Provider 11/04/22 [facility] - [facility] [address] [facility] [place] [id number] Assigned PCP 07/05/23 documented as of this encounter
--- OUTSIDE RECORDS SUMMARY | 2023-10-01 10:25 | XMS_ITS | Encounter Summary ---
Author Name Unknown Organization [place] Address [address] [place] [address] Care Team Providers Care Fisher Swordfish Name Role Phone Noreen Flores APRN MOLD MAKER Unavailable Noreen Flores APRN MOLD MAKER Primary Car e Provider Kalyan Galvan Unavailable Unavailable Lashae Trevino [facility] Unavailable [phone] Eduardo Sharma MD Unavailable Rios Monteiro MD Unavailable [phone] Marcelo Artis PA-C Unavailable Rodrigo Man PA-C Unavailable [phone] Noreen Flores APRN, CNP Unavailable Sudha Greene NP Primary Care Provider Agatha Null DPM, Podiatry /Foot and Ankle Surgery Unavailable Clinic - [facility] Unavailable Encounter Details Date Type Department Care Team (Late st Contact Info) Description 08/02/2020 Myra Moya [facility] [address] [facility] [address] [place] [address] Lainey Wells Social History Tobacco [...] Answer Date Recorded PHQ-2 Score 2 07/25/2018 [facility] of Occupat ional Health - [...] COVID-19? No / Unsure 07/17/2020 1:32 PM GAS LEAK INSPECTOR documented as of this encounter Plan of [...] documented as of this encounter Care Teams Fisher Swordfish Relationship Specialty Start Date End Date Noreen Flores APRN MOLD MAKER [address] [place] [address] [place] [address] PCP - General Nurse Practitioner 01/09/19 12/12/21 Sudha Greene NP [address] [address] PCP - General 11/01/22 Noreen Flores APRN MOLD MAKER [address] [place] [address] [place] [address] Assigned PCP 06/16/18 05/26/22 Kalyan Galvan Personal Advocate & Liaison (PAL) 08/08/19 04/26/21 [facility] [address] [facility] [place] [address] Pharmacist Pharmacist 10/14/19 12/01/20 Eduardo Sharma MD [address] [facility] [address] [place] [address] Assigned Sleep Provider 04/02/2005/07 [place] [address] [facility] 300 [place] [address] Assigned Musculoskeletal Provider 04/02/20 08/24/20 Marcelo Artis PA-C [address]1982 [facility] 300 [place] [address] Assigned Musculoskeletal Provider 08/25/20 08/20/21 Rodrigo Man PA-C 6545 [facility] [address] [place] [address] Assigned Surgical Provider 08/25/20 11/27/20 Noreen Flores APRN CNP [address] [place] [address] [place] [address] Assigned PCP 08/05/22 03/16/23 Agatha Null DPM, Podiatry/Foot and Ankle Surgery [address] [facility] [address] [place] [address] Assigned Musculoskeletal Provider 11/04/22 [facility] - [place] [facility] [address] [facility] [place] [address] Assigned PCP 07/05/23 documented as of this encounter
--- OUTSIDE RECORDS SUMMARY | 2023-10-01 10:25 | XMS_ITS | Encounter Summary ---
Author Name Unknown Organization [place] Address [address] [place] [address] Care Team Providers Care Beater Operator Name Role Phone Noreen Flores APRN VENEER JOINTER RETURNER Unavailable Noreen Flores APRN VENEER JOINTER RETURNER Primary Car e Provider Kalyan Galvan Unavailable Unavailable Lashae Trevino [facility] Unavailable Eduardo Sharma MD Unavailable Rios Monteiro MD Unavailable Marcelo Artis PA-C Unavailable Rodrigo Man PA-C Unavailable [phone] Noreen Flores APRN VENEER JOINTER RETURNER Unavailable Sudha Greene NP Primary Care Provider [phone] Agatha Null DPM, Podiatry /Foot and Ankle Surgery Unavailable Clinic - [facility] Unavailable Encounter Details Date Type Department Care Team (Late st Contact Info) Description 12/23/2019 Myra Moya [facility] [place] [address] [place] [address] Noreen Flores APRN CNP [address] [facility] [place] [id number] Chronic seasonal allergic rhinitis Social History Tobacco [...] Answer Date Recorded PHQ-2 Score 2 07/25/2018 [facility] of Occupat ional Health - Occupational Stress [...] 2:11 PM CDT Please call [facility] in [facility] and find out why they are having [...] Total Score: 9 08/09/19 20 7:03 AM ELEPHANT KEEPER documented as of this encounter Care Teams Beater Operator Relationship Specialty Start Date End Date Noreen Flores APRN VENEER JOINTER RETURNER [address] [facility] [place] [address] PCP - General Nurse Practitioner 01/09/19 12/12/21 Sudha Greene NP [address] [address] PCP - General 11/01/22 Noreen Flores APRN VENEER JOINTER RETURNER [address] [place] [address] [place] [address] Assigned PCP 06/16/18 05/26/22 Kalyan Galvan Personal Advocate & Liaison (PAL) 08/08/19 04/26/21 [facility] [address] [place] [address] [place] [address] Pharmacist Pharmacist 10/14/19 12/01/20 Eduardo Sharma MD [address] [address] Assigned Sleep Provider 04/02/2005/07 [place] [address] [address] Assigned Musculoskeletal Provider 04/02/20 08/24/20 Marcelo Artis PA-C [address] [address] Assigned Musculoskeletal Provider 08/25/20 08/20/21 Rodrigo Man PA-C [address] [place] [address] Assigned Surgical Provider 08/25/20 11/27/20 Noreen Flores APRN VENEER JOINTER RETURNER [address] [facility] [place] [address] Assigned PCP 08/05/22 03/16/23 Agatha Null DPM, Podiatry/Foot and Ankle Surgery [address] [place] [address] [place] [address] Assigned Musculoskeletal Provider 11/04/22 [facility] - [facility] [address] [facility] [place] [id number] Assigned PCP 07/05/23 documented as of this encounter
--- OUTSIDE RECORDS SUMMARY | 2023-10-01 10:25 | XMS_ITS | Encounter Summary ---
Author Name Unknown Organization [place] Address [address] [place] [address] Care Team Providers Care Slip Cover Cutter Name Role Phone Noreen Flores APRN, CNP Unavailable Noreen Flores APRN, CNP Primary Car e Provider Kalyan Galvan Unavailable Unavailable Lashae Trevino [facility] Unavailable Eduardo Sharma MD Unavailable Rios Monteiro MD Unavailable Marcelo Artis PA-C Unavailable Rodrigo Man PA-C Unavailable [phone] Noreen Flores APRN, CNP Unavailable Sudha Greene NP Primary Care Provider [phone] Agatha Null DPM, Podiatry /Foot and Ankle Surgery Unavailable Clinic - [facility] Unavailable Reason for Visit * Reason Comments Medication Refill Encounter Details Date Type Department Care Team (Late st Contact Info) Description 06/18/2020 Refill [facility] [place] [address] [place] [phone] Noreen Flores APRN CNP [address] [facility] [place] [address] Medication Refill Social History [...] Answer Date Recorded PHQ-2 Score 2 07/25/2018 [facility] of Occupat ional Health - [...] Desirae Champagne RN - 06/18/2020 10:53 AM CRUISE CONSULTANT Prescription approved per [facility] Refill Protocol. Desirae Champagne RN on 06/18/2020 at 10:52 AM SE CONSULTANT documented in this encounter Plan of [...] documented as of this encounter Care Teams Slip Cover Cutter Relationship Specialty Start Date End Date Noreen Flroes APRN FITNESS SERVICES MANAGER [address] [place] [address] [place] [address] PCP - General Nurse Practitioner 01/09/19 12/12/21 Sudha Greene, MAURICIO [address] [address] PCP - General 11/01/22 Noreen Flores APRN FITNESS SERVICES MANAGER [address] [place] [address] [place] [address] Assigned PCP 06/16/18 05/26/22 Kalyan Galvan Personal Advocate & Liaison (PAL) 08/08/19 04/26/21 Lashae Trevino, [facility] [address] [place] [address] Pharmacist Pharmacist 10/14/19 12/01/20 Eduardo Sharma MD [address] [place] [address] [place] [address]105 Assigned Sleep Provider 04/02/2005/07 [place] [address] [facility] 300 [place], [place] [address] Assigned Musculoskeletal Provider 04/02/20 08/24/20 Marcelo Artis PA-C [id number] [place] [address] 300 [place] [address] Assigned Musculoskeletal Provider 08/25/20 08/20/21 Rodrigo Man PA-C [address] [place] [address] [place] [address] Assigned Surgical Provider 08/25/20 11/27/20 Noreen Flores APRN CNP [address] [place] [address] [place] [address] Assigned PCP 08/05/22 03/16/23 Agatha Null DPM, Podiatry/Foot and Ankle Surgery [address] [place] [address] [address] [place] [address] [place] [address] Assigned Musculoskeletal Provider 11/04/22 [facility] [address] [facility] DAV[place] [address] Assigned PCP 07/05/23 documented as of this encounter
--- OUTSIDE RECORDS SUMMARY | 2023-10-01 10:25 | XMS_ITS | Encounter Summary ---
Author Name Unknown Organization [place] Address [address] [place] [address] Care Team Providers Care Lawn Mower Name Role Phone Noreen Flores APRN PICKING TECH Unavailable Noreen Flores APRN PICKING TECH Primary Car e Provider Kalyan Galvan Unavailable Unavailable Lashae Trevino [facility] Unavailable Eduardo Sharma MD Unavailable Rios Monteiro MD Unavailable [phone] Marcelo Artis PA-C Unavailable Rodrigo Man PA-C Unavailable [phone] Noreen Flores APRN PICKING TECH Unavailable Sudha Greene NP Primary Care Provider Agatha Null DPM, Podiatry /Foot and Ankle Surgery Unavailable Clinic - [place] Unavailable Encounter Details Date Type Department Care Team (Late st Contact Info) Description 10/28/2019 Myra oMya [facility] [place] [address] [place] [phone] Noreen Flores APRN CNP [address] [facility] [place] [address] Social History Tobacco [...] Friends and Family Patient declined 08/08/2019 Attends Yarsani Services Patient declined 07/13 Active Member of [...] Answer Date Recorded PHQ-2 Score 2 07/25/2018 [facility] of Occupat ional Health - Occupational Stress [...] Total Score: 9 08/09/19 20 7:03 AM LEADERSHIP INTERN documented as of this encounter Care Teams Lawn Mower Relationship Specialty Start Date End Date Jeana-Noreen Miles APRN CNP [address] [facility] [place] [address] PCP - General Nurse Practitioner 01/09/19 12/12/21 Sudha Greene NP [address] [place] [address] PCP - General 11/01/22 Noreen Flores APRN PICKING TECH [address] [place] [address] [place] [address] Assigned PCP 06/16/18 05/26/22 Kalyan Galvan Personal Advocate & Liaison (PAL) 08/08/19 04/26/21 [facility] [address] [place] [address] [place] [address] Pharmacist Pharmacist 10/14/19 12/01/20 Eduardo Sharma MD [address] [place] [address] [place] [address] Assigned Sleep Provider 04/02/2005/07 [place] [address] [place] [address] [place] [address] Assigned Musculoskeletal Provider 04/02/20 08/24/20 Marcelo Artis PA-C [address] [facility] [place] 300 [place] [address] Assigned Musculoskeletal Provider 08/25/20 08/20/21 Rodrigo Man PA-C [address] [place] [address] [place], [place] [address]155 Assigned Surgical Provider 08/25/20 11/27/20 Noreen Flores APRN PICKING TECH [address] [place] [address] [place] [address] Assigned PCP 08/05/22 03/16/23 Agatha Null DPM, Podiatry/Foot and Ankle Surgery [address] [place] [address] Assigned Musculoskeletal Provider 11/04/22 [facility] [place] [address] [place] [address] Assigned PCP 07/05/23 documented as of this encounter
--- OUTSIDE RECORDS SUMMARY | 2023-10-01 10:25 | XMS_ITS | Encounter Summary ---
Author Name Unknown Organization [place] Address [address] [place] [address] Care Team Providers Care Delicatessen Clerk Name Role Phone Noreen Flores APRN REGULATOR INSPECTOR Unavailable Noreen Flores APRN REGULATOR INSPECTOR Primary Car e Provider Kalyan Galvan Unavailable Unavailable Lashae Trevino [facility] Unavailable Eduardo Sharma MD Unavailable Marcelo Artis PA-C Unavailable [phone] Rodrigo Man PA-C Unavailable [phone] Noreen Flores APRN REGULATOR INSPECTOR Unavailable Sudha Greene NP Primary Care Provider Agatha Null DPM, Podiatry /Foot and Ankle Surgery Unavailable Clinic - [facility] Unavailable Reason for Visit * Reason Onset Date Comments Refill Request 10/05/2020 topiramate (TOPA MAX) 100 MG tablet Encounter Details Date Type Department Care Team (Late st Contact Info) Description 10/05/2020 Refclaudia M [facility] [place] [address] [place] [phone] Noreen Flores APRN REGULATOR INSPECTOR [address] [facility] [place] [address] Refill Request (topiramate [...] Answer Date Recorded PHQ-2 Score 2 07/25/2018 [facility] [place] of Occupat ional Health - Occupational Stress [...] documented as of this encounter Care Teams Delicatessen Clerk Relationship Specialty Start Date End Date Noreen Flores APRN REGULATOR INSPECTOR [address] [place] [address] [place] [address] PCP - General Nurse Practitioner 01/09/19 12/12/21 Sudha Greene NP [address] [address] PCP - General 11/01/22 Noreen Flores APRN REGULATOR INSPECTOR [address] [place] [address] [place] [address] Assigned PCP 06/16/18 05/26/22 Kalyan Galvan Personal Advocate & Liaison (PAL) 08/08/19 04/26/21 Lashae Trevino, [facility] 1440 [facility] [place] [address] Pharmacist Pharmacist 10/14/19 12/01/20 Eduardo Sharma MD [address] [place] [address] [place] 7940[address] Assigned Sleep Provider 04/02/2005/07 Marcelo Artis PA-C [address] [facility] 300 [place] [address] Assigned Musculoskeletal Provider 08/25/20 08/20/21 Rodrigo Man PA-C [address] [place] [address] [place] [address] Assigned Surgical Provider 08/25/20 11/27/20 Noreen Flores APRN CNP [address] [place] [address] [place] [address] Assigned PCP 08/05/22 03/16/23 Agatha Null DPM, Podiatry/Foot and Ankle Surgery [address] [facility] [address] [place] [address] Assigned Musculoskeletal Provider 11/04/22 [facility] 3305 [facility] [place] [address] Assigned PCP 07/05/23 documented as of this encounter
--- OUTSIDE RECORDS SUMMARY | 2023-10-01 10:25 | XMS_ITS | Encounter Summary ---
Author Name Unknown Organization [place] Address [address] [place] [address] Care Team Providers Care Wood Filler Name Role Phone Noreen Flores APRN HEALTHCARE ADMINISTRATION INTERNSHIP Unavailable Noreen Flores APRN HEALTHCARE ADMINISTRATION INTERNSHIP Primary Car e Provider Kalyan Galvan Unavailable Unavailable Lashae Trevino [facility] Unavailable Eduardo Sharma MD Unavailable Rios Monteiro MD Unavailable Marcelo Artis PA-C Unavailable Rodrigo Man PA-C Unavailable [phone] Noreen Flores APRN HEALTHCARE ADMINISTRATION INTERNSHIP Unavailable Sudha Greene NP Primary Care Provider Agatha Null DPM, Podiatry /Foot and Ankle Surgery Unavailable Clinic - [facility] [place] Unavailable Encounter Details Date Type Department Care Team (Late st Contact Info) Description 07/15/2020 Myra Moya [facility] [place] [address] [place] [phone] Noreen Flores APRN CNP [address] [facility] [place] [id number] Social History Tobacco Use Types Packs/Day Years [...] Friends and Family Patient declined 08/08/2019 Attends Yarsanism Services Patient declined 07/13 Active Member of [...] Answer Date Recorded PHQ-2 Score 2 07/25/2018 [facility] of Occupat ional Health - Occupational Stress [...] COVID-19? No / Unsure 07/17/2020 1:32 PM SECURITY OPERATIONS ANALYST documented as of this encounter Plan of [...] as of this encounter Care Teams Wood Filler Relationship Specialty Start Date End Date Noreen Flores APRN HEALTHCARE ADMINISTRATION INTERNSHIP [address] [place] [address] [place] [address] PCP - General Nurse Practitioner 01/09/19 12/12/21 Sudha Greene, MAURICIO [address] [address] PCP - General 11/01/22 Noreen Flores APRN HEALTHCARE ADMINISTRATION INTERNSHIP [address] [place] [address] [place] [address] Assigned PCP 06/16/18 05/26/22 Kalyan Galvan Personal Advocate & Liaison (PAL) 08/08/19 04/26/21 Lashae Trevino, [facility] [address] [place] [address] Pharmacist Pharmacist 10/14/19 12/01/20 Eduardo Sharma MD 6363 [place] [address] Assigned Sleep Provider 04/02/2005/07 [place] [address] [address] Assigned Musculoskeletal Provider 04/02/20 08/24/20 Marcelo Artis PA-C [address] [address] Assigned Musculoskeletal Provider 08/25/20 08/20/21 Rodrgio Man PA-C [address] [address] Assigned Surgical Provider 08/25/20 11/27/20 Noreen Flores APRN HEALTHCARE ADMINISTRATION INTERNSHIP [address] [place] [address] [place] [address] Assigned PCP 08/05/22 03/16/23 Agatha Null DPM, Podiatry/Foot and Ankle Surgery [address] [facility] 300 [place] [address] Assigned Musculoskeletal Provider 11/04/22 [facility] [place] [place] [facility] [address] [place] [address] [place] [address] Assigned PCP 07/05/23 documented as of this encounter
--- OUTSIDE RECORDS SUMMARY | 2023-10-01 10:25 | XMS_ITS | Encounter Summary ---
Author Name Unknown Organization [place] Address [address] [place] [address] Care Team Providers Care Electronics Detail Draftsperson Name Role Phone Noreen Flores APRN GLOBAL PROJECT MANAGER Unavailable Noreen Flores APRN GLOBAL PROJECT MANAGER Primary Car e Provider Kalyan Galvan Unavailable Unavailable Lashae Trevino [facility] Unavailable Eduardo Sharma MD Unavailable Marcelo Artis PA-C Unavailable Rodrigo Man PA-C Unavailable Noreen Flores APRN GLOBAL PROJECT MANAGER Unavailable Sudha Greene NP Primary Care Provider [phone] Agatha NullM, Podiatry /Foot and Ankle Surgery Unavailable [facility] - [place] [facility] Unavailable Encounter Details Date Type [...] Answer Date Recorded PHQ-2 Score 2 07/25/2018 [facility] of Occupat ional Health - [...] as of this encounter Care Teams Electronics Detail Draftsperson Relationship Specialty Start Date End Date Noreen Flores APRN GLOBAL PROJECT MANAGER [address] [place] [address] [place] [address] PCP - General Nurse Practitioner 01/09/19 12/12/21 Sudha Greene, MAURICIO [address] [address] PCP - General 11/01/22 Noreen Flores APRN GLOBAL PROJECT MANAGER [address] [place] [address] [place] [address] Assigned PCP 06/16/18 05/26/22 Kalyan Galvan Personal Advocate & Liaison (PAL) 08/08/19 04/26/21 Lashae Trevino [facility] [place] [id number] Pharmacist Pharmacist 10/14/19 12/01/20 Eduardo Sharma MD [address] [place] [address] [place] [address] Assigned Sleep Provider 04/02/2005/07 Marcelo Artis PA-C [address] [facility] [place] 300 [place] [address] Assigned Musculoskeletal Provider 08/25/20 08/20/21 Rodrigo Man PA-C [address] [place] [address] [place] [address] Assigned Surgical Provider 08/25/20 11/27/20 Noreen Flores APRN GLOBAL PROJECT MANAGER 3305 [facility] [place] [address] Assigned PCP 08/05/22 03/16/23 Agatha Null DPM, Podiatry/Foot and Ankle Surgery [address] [place] [address] Assigned Musculoskeletal Provider 11/04/22 [facility] [place] [place] [facility] [address] [facility] [place] [address] Assigned PCP 07/05/23 documented as of this encounter
--- OUTSIDE RECORDS SUMMARY | 2023-10-01 10:25 | XMS_ITS | Encounter Summary ---
Author Name Unknown Organization [place] Address [address] [place] [address] Care Team Providers Care Glass Maker Name Role Phone Noreen Flores APRN SOUS CHEF Unavailable Noreen Flores APRN SOUS CHEF Primary Car e Provider Kalyan Galvan Unavailable Unavailable Lashae Trevino [facility] Unavailable [phone] Eduardo Sharma MD Unavailable Marcelo Artis PA-C Unavailable Rodrigo Man PA-C Unavailable Noreen Flores APRN SOUS CHEF Unavailable Sudha Greene NP Primary Care Provider Agatha NullM, Podiatry /Foot and Ankle Surgery Unavailable [facility] - [place] [facility] Unavailable Encounter [...] Answer Date Recorded PHQ-2 Score 2 07/25/2018 [facility] of Occupat ional Health - [...] documented as of this encounter Care Teams Glass Maker Relationship Specialty Start Date End Date Noreen Flores APRN SOUS CHEF [address]305 [facility] [place] [address] PCP - General Nurse Practitioner 01/09/19 12/12/21 Sudha Greene NP [address] [address] PCP - General 11/01/22 Noreen Flores APRN SOUS CHEF [address] [place] [address] [place] [address] Assigned PCP 06/16/18 05/26/22 Kalyan Galvan Personal Advocate & Liaison (PAL) 08/08/19 04/26/21 [facility] [place] [address] Pharmacist Pharmacist 10/14/19 12/01/20 Eduardo Sharma MD [address] [address] [place] [address] Assigned Sleep Provider 04/02/2005/07 Marcelo Artis PA-C [address] [place] [address] 300 [place] [address] Assigned Musculoskeletal Provider 08/25/20 08/20/21 Rodrigo Man PA-C [address] [place] [address] [place] [address] Assigned Surgical Provider 08/25/20 11/27/20 Noreen Flores APRN SOUS CHEF 3305 [facility] [place] [address] Assigned PCP 08/05/22 03/16/23 Agatha Null DPM, Podiatry/Foot and Ankle Surgery [address] [address] [place] [address] Assigned Musculoskeletal Provider 11/04/22 Clinic - [place] [place] [facility] 3304 [facility] [place] [address] Assigned PCP 07/05/23 documented as of this encounter
--- OUTSIDE RECORDS SUMMARY | 2023-10-01 10:25 | XMS_ITS | Encounter Summary ---
Author Name Unknown Organization [place] Address [address] [place] [address] Care Team Providers Care Sack Sewer Machine Name Role Phone Noreen Flores APRN, CNP Unavailable Noreen Flores APRN AIRPLANE DISPATCHER Primary Car e Provider Kalyan Galvan Unavailable Unavailable Lashae Trevino [facility] Unavailable Eduardo Sharma MD Unavailable Rios Monteiro MD Unavailable Marcelo Artis PA-C Unavailable Rodrigo Man PA-C Unavailable [phone] Noreen Flores APRN AIRPLANE DISPATCHER Unavailable Sudha Greene NP Primary Care Provider Agatha Null DPM, Podiatry /Foot and Ankle Surgery Unavailable Clinic - Nita [place] [facility] Unavailable Reason for Visit * Reason Onset Date Comments Outreach 12/09/2019 Encounter Details Date Type Department Care Team (Late st Contact Info) Description 12/09/2019 Myra Medical Advice Nita [facility] [place] [address] [place] [address] Noreen Flores APRN CNP [address] [facility] [place] [address] Outreach Social History Tobacco Use Types Packs/Day [...] Answer Date Recorded PHQ-2 Score 2 07/25/2018 [facility] [place] Works of Occupat ional Health - Occupational Stress [...] Called pharmacy 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 Additionally, pharmacy requested that an order be faxed for the Loratadine-d as the e-prescribe didnot transmit to them. Fax number: [phone] Kalyan Galvan, EMT at 9:53 AM on December 11, 2019 [facility] Guide [phone] documented in this encounter Plan of Treatment [...] Total Score: 9 08/09/19 20 7:03 AM TECHNICAL CUSTOMER SUPPORT SPECIALIST documented as of this encounter Care Teams Sack Sewer Machine Relationship Specialty Start Date End Date Noreen Flores APRN AIRPLANE DISPATCHER [address] [place] [address] [place] [address] PCP - General Nurse Practitioner 01/09/19 12/12/21 Sudha Greene NP [address] [address] PCP - General 11/01/22 Noreen Flores APRN AIRPLANE DISPATCHER [address] [place] [address] [place] [address] Assigned PCP 06/16/18 05/26/22 Kalyan Galvan Personal Advocate & Liaison (PAL) 08/08/19 04/26/21 Lashae Trevino, [facility] [address] [facility] [place] [phone] Pharmacist Pharmacist 10/14/19 12/01/20 Eduardo Sharma MD [address] [place] [address] [place] [address] Assigned Sleep Provider 04/02/2005/07 [place] [address] [place] [address] [place] [address] Assigned Musculoskeletal Provider 04/02/20 08/24/20 Marcelo Artis PA-C [address] [place] [address] [place] [address] Assigned Musculoskeletal Provider 08/25/20 08/20/21 Rodrigo Man PA-C [address] [place] [address] [place] [address]607[address] Assigned Surgical Provider 08/25/20 11/27/20 Noreen Flores APRN AIRPLANE DISPATCHER [address] [facility] [place] [address] Assigned PCP 08/05/22 03/16/23 Agatha Null, DPM, Podiatry/Foot and Ankle Surgery [address] [place] [address] Assigned Musculoskeletal Provider 11/04/22 Clinic - [facility] [place] [address] [place] [address] Assigned PCP 07/05/23 documented as of this encounter
--- OUTSIDE RECORDS SUMMARY | 2023-10-01 10:25 | XMS_ITS | Encounter Summary ---
Author Name Unknown Organization [place] Address [address] [place] [address] Care Team Providers Care Supervisor Bakery Sanitation Name Role Phone Noreen Flores APRN MOBILITY SPECIALIST Unavailable Noreen Flores APRN MOBILITY SPECIALIST Primary Car e Provider Kalyan Galvan Unavailable Unavailable aLshae Trevino [facility] Unavailable [phone] Eduardo Sharma MD Unavailable Rios Monteiro MD Unavailable Marcelo Artis PA-C Unavailable Rodrigo Man PA-C Unavailable [phone] Noreen Flores APRN MOBILITY SPECIALIST Unavailable Sudha Greene NP Primary Care Provider Agatha Null DPM, Podiatry /Foot and Ankle Surgery Unavailable Clinic - [facility] [place] [facility] Unavailable Encounter Details Date Type Department Care Team (Late st Contact Info) Description 10/14/2019 [facility]ra [facility] [address] [facility] [address] [place] [address] Lashae Trevino, [facility] [address] [facility] [place] [address] Social History Tobacco [...] Answer Date Recorded PHQ-2 Score 2 07/25/2018 [facility] Era of Occupat ional Health - Occupational Stress [...] Total Score: 9 08/09/19 20 7:03 AM MATERIALS CLERK documented as of this encounter Care Teams Supervisor Bakery Sanitation Relationship Specialty Start Date End Date Noreen Flores APRN MOBILITY SPECIALIST [address] [place] [address] [place] [address] PCP - General Nurse Practitioner 01/09/19 12/12/21 Sudha Greene, [place] [address] [address] PCP - General 11/01/22 Noreen Flores APRN MOBILITY SPECIALIST [address] [place] [address] [place] [address] Assigned PCP 06/16/18 05/26/22 Kalyan Galvan Personal Advocate & Liaison (PAL) 08/08/19 04/26/21 Lashae Trevino, [facility] [address] [place] [address] Pharmacist Pharmacist 10/14/19 12/01/20 Eduardo Sharma MD [address] [place] [address] [place] [address] Assigned Sleep Provider 04/02/2005/07 [place] [address] [facility] [address] [place] [address] Assigned Musculoskeletal Provider 04/02/20 08/24/20 Marcelo Artis PA-C [address] [address] Assigned Musculoskeletal Provider 08/25/20 08/20/21 Rodrigo Man PA-C [address] [facility] 450 [place] [address] Assigned Surgical Provider 08/25/20 11/27/20 Noreen Flores APRN MOBILITY SPECIALIST [address] [place] [address] [place] [address] Assigned PCP 08/05/22 03/16/23 Agatha Null DPM, Podiatry/Foot and Ankle Surgery [address] [facility] [address] [place] [address] Assigned Musculoskeletal Provider 11/04/22 [facility] - Nita [place] [facility] [address] [facility] [place] [address] Assigned PCP 07/05/23 documented as of this encounter
--- OUTSIDE RECORDS SUMMARY | 2023-10-01 10:25 | XMS_ITS | Encounter Summary ---
Author Name Unknown Organization [place] Address [address] [place] [address] Care Team Providers Care Staff Combat Information Center Officer Name Role Phone Noreen Flores APRN MULTIMEDIA TEACHER Unavailable Noreen Flores APRN MULTIMEDIA TEACHER Primary Car e Provider Kalyan Galvan Unavailable Unavailable Lashae Trevino [facility] Unavailable [phone] Eduardo Sharma MD Unavailable Marcelo Artis PA-C Unavailable [phone] Rodrigo Man PA-C Unavailable [phone] Noreen Flores APRN MULTIMEDIA TEACHER Unavailable Sudha Greene NP Primary Care Provider [phone] Agatha Null DPM, Podiatry /Foot and Ankle Surgery Unavailable Clinic - Nita [facility] [facility] Unavailable Reason for Visit * Reason Onset Date Comments Refill Request 09/24/2020 zolpidem (AMBIEN ) 5 MG tablet Encounter Details Date Type Department Care Team (Late st Contact Info) Description 09/24/2020 Iraj Moya [facility] [place] [address] [place] [address] Noreen Flores APRN MULTIMEDIA TEACHER [address] [facility] [place] [address] Refill Request (zolpidem [...] Friends and Family Patient declined 08/08/2019 Attends Confucianism Services Patient declined 07/13 Active Member of [...] Answer Date Recorded PHQ-2 Score 2 07/25/2018 [facility] [place] of Occupat ional Health - Occupational Stress [...] as of this encounter Care Teams Staff Combat Information Center Officer Relationship Specialty Start Date End Date Noreen Flores APRN MULTIMEDIA TEACHER [address] [place] [address] [place] [address] PCP - General Nurse Practitioner 01/09/19 12/12/21 Sudha Greene, MAURICIO [address] [address] PCP - General 11/01/22 Noreen Flores APRN MULTIMEDIA TEACHER [address] [place] [address] [place] [address] Assigned PCP 06/16/18 05/26/22 Kalyan Galvan Personal Advocate & Liaison (PAL) 08/08/19 04/26/21 Lashae Trevino, [facility] [address] [place] [address] Pharmacist Pharmacist 10/14/19 12/01/20 Eduardo Sharma MD [address] [place] [address] Assigned Sleep Provider 04/02/2005/07 Marcelo Artis PA-C [address] [facility] 300 [place] [address] Assigned Musculoskeletal Provider 08/25/20 08/20/21 Rodrigo Man PA-C [address] [facility] 450 [place] [address] Assigned Surgical Provider 08/25/20 11/27/20 Noreen Flores APRN CNP [address] [place] [address] [place] [address] Assigned PCP 08/05/22 03/16/23 Agatha Null DPM, Podiatry/Foot and Ankle Surgery [address] [place] [address] 300 [place] [address] Assigned Musculoskeletal Provider 11/04/22 [facility] - Nita [place] [facility] [address] [place] [address] [place] [address] Assigned PCP 07/05/23 documented as of this encounter
--- OUTSIDE RECORDS SUMMARY | 2023-10-01 10:25 | XMS_ITS | Encounter Summary ---
Author Name Unknown Organization [place] Address [address] [place] [address] Care Team Providers Care Nuclear Radiation Engineer Name Role Phone Noreen Flores APRN, CNP Unavailable Noreen Flores APRN, CNP Primary Car e Provider Kalyan Galvan Unavailable Unavailable Lashae Trevino [facility] Unavailable [phone] Eduardo Sharma MD Unavailable Rios Monteiro MD Unavailable [phone] Marcelo Artis PA-C Unavailable [phone] Rodrigo Man PA-C Unavailable [phone] Noreen Flores APRN, CNP Unavailable Sudha Greene NP Primary Care Provider [phone] Agatha Null DPM, Podiatry /Foot and Ankle Surgery Unavailable Clinic - Nita [facility] Unavailable Reason for Visit * Reason Onset Date Comments Refill Request 05/29/2020 omeprazole (PRIL OSEC) [address] capsule Encounter Details Date Type Department Care Team (Late st Contact Info) Description 05/29/2020 Refill M [facility] [address] [facility] [address] [place] [address] Noreen Flores APRN IT NETWORK ADMINISTRATOR [address] [facility] [place] [address] Refill Request (omeprazole (PRILOSEC) [address] [...] Date Recorded PHQ-2 Score 2 07/25/2018 [facility] [place] of Occupat ional Health - Occupational Stress [...] Keyona Mantilla RN - 05/31/2020 10:42 AM CARPET INSTALLER Patient has refills remaining with requesting pharmacy. Keyona Palacios - Registered Nurse [facility] Acute and Diagnostic Services ET INSTALLER * Telephone Encounter - Kartik Javier - 05/29/2020 5:01 PM CST Alternative Requested: Insurance covers max 90 days in a year. Please submit PA to continue therapy. ET INSTALLER documented in this encounter Plan of [...] as of this encounter Care Teams Nuclear Radiation Engineer Relationship Specialty Start Date End Date Noreen Flores APRN IT NETWORK ADMINISTRATOR [address] [place] [address] [place] [address] PCP - General Nurse Practitioner 01/09/19 12/12/21 Sudha Greene NP [address] [address] PCP - General 11/01/22 Noreen Flores APRN IT NETWORK ADMINISTRATOR [address] [place] [address] [place] [address] Assigned PCP 06/16/18 05/26/22 Kalyan Galvan Personal Advocate & Liaison (PAL) 08/08/19 04/26/21 Lashae Trevino, [facility] [address] [facility] [place] [id number] Pharmacist Pharmacist 10/14/19 12/01/20 Eduardo Sharma MD [address] [place] [address] [place] [address]85 Assigned Sleep Provider 04/02/2005/07 [place] [address] [place] [address] [place] [address] Assigned Musculoskeletal Provider 04/02/20 08/24/20 Marcelo Artis PA-C [address] [place] [address] [place] [address] Assigned Musculoskeletal Provider 08/25/20 08/20/21 Rodrigo Man PA-C [address] [place] [address] [place] [address] Assigned Surgical Provider 08/25/20 11/27/20 Noreen Flores APRN IT NETWORK ADMINISTRATOR [address] [facility] [place] [address] Assigned PCP 08/05/22 03/16/23 Agatha Null, DPM, Podiatry/Foot and Ankle Surgery [address] [address] [facility] 300 [place] [address] Assigned Musculoskeletal Provider 11/04/22 [facility] - Nita [place] [address] [place] [address] Assigned PCP 07/05/23 documented as of this encounter
--- OUTSIDE RECORDS SUMMARY | 2023-10-01 10:25 | XMS_ITS | Encounter Summary ---
Author Name Unknown Organization [facility] Address [address] [place] [address] Care Team Providers Care Testing Coordinator Name Role Phone Noreen Flores APRN PRE K LEAD TEACHER Unavailable Noreen Flores APRN PRE K LEAD TEACHER Primary Car e Provider Kalyan Galvan Unavailable Unavailable Lashae Trevino [facility] Unavailable [phone] Eduardo Sharma MD Unavailable Rios Monteiro MD Unavailable Marcelo Artis PA-C Unavailable Rodrigo Man PA-C Unavailable [phone] Noreen Flores APRN, CNP Unavailable Sudha Greene NP Primary Care Provider Agatha Null DPM, Podiatry /Foot and Ankle Surgery Unavailable Clinic - Nita [facility] Unavailable Reason for Visit * Reason Onset Date Comments Refill Request 06/14/2020 blood glucose mo nitoring (ONE TOUCH DELICA) lancets Refill Request 06/14/2020 blood glucose (A CCU-CHEK JANICE) test strip Encounter Details Date Type Department Care Team (Late st Contact Info) Description 06/14/2020 [facility] [address] [facility] [address] [place] [phone] Jeana-Jd Noreen Sudha, COOK PIE PRE K LEAD TEACHER [address] [facility] [place] [address] Refill Request (blood glucose monitoring (ONE TOUCH [...] Answer Date Recorded PHQ-2 Score 2 07/25/2018 [facility] [place] of Occupat ional Health - Occupational Stress [...] Christy Pelayo RN - 06/16/2020 11:04 AM FERRYBOAT OPERATOR HELPER Prescription approved per [facility] Refill Protocol. Christy Pelayo RN Flex YBOAT OPERATOR HELPER * Telephone Encounter - Candy Wilda - 06/14/2020 3:55 PM CST Request from pharmacy states: ONE TOUCH VERIO TEST STRIPS and ONE TOUCH 30G DELICA LNC, YBOAT OPERATOR HELPER documented in this encounter Plan [...] documented as of this encounter Care Teams Testing Coordinator Relationship Specialty Start Date End Date Jeana-Noreen Miles APRN PRE K LEAD TEACHER [address] [place] [address] [place] [address] PCP - General Nurse Practitioner 01/09/19 12/12/21 Sudha Greene NP [facility] & [address] [address] PCP - General 11/01/22 Noreen Flores APRN PRE K LEAD TEACHER [address] [place] [address] [place] [address] Assigned PCP 06/16/18 05/26/22 Kalyan Galvan Personal Advocate & Liaison (PAL) 08/08/19 04/26/21 [facility] [address] [place] [address] [place] [address] Pharmacist Pharmacist 10/14/19 12/01/20 Eduardo Sharma MD [address] [place] [place] [address] Assigned Sleep Provider 04/02/2005/07 [place] [address] [address] [address] [address] [place] [address] Assigned Musculoskeletal Provider 04/02/20 08/24/20 Marcelo Artis PA-C [address] [place] [address] Assigned Musculoskeletal Provider 08/25/20 08/20/21 Rodrigo Man PA-C [address] [place] [address] Assigned Surgical Provider 08/25/20 11/27/20 Noreen Flores APRN PRE K LEAD TEACHER [address] [place] [address] [place] [address] Assigned PCP 08/05/22 03/16/23 Agatha Null, MARÍA, Podiatry/Foot and Ankle Surgery [address] [place] [address] Assigned Musculoskeletal Provider 11/04/22 Clinic - Nita [place] [address] [id number] Assigned PCP 07/05/23 documented as of this encounter
--- OUTSIDE RECORDS SUMMARY | 2023-10-01 10:26 | XMS_ITS | Encounter Summary ---
Author Name Unknown Organization [place] Address [address] [place] [address] Care Team Providers Care Apartment Maintenance Supervisor Name Role Phone Vanda Guerrero MD Primary Care Provider [phone] Vanda Guerrero MD Unavailable [phone] Jeana-Noreen Miles APRN SUPERVISOR DRYING AND SOFTENING Unavailable [facility]-Noreen Miles APRN SUPERVISOR DRYING AND SOFTENING Unavailable Jeana-Noreen Miles ARC FURNACE OPERATOR SUPERVISOR DRYING AND SOFTENING Primary Car e Provider Kalyan Galvan Unavailable Unavailable Lashea Trevino [facility] Unavailable Eduardo Sharma MD Unavailable Rios Monteiro MD Unavailable [phone] Marcelo Artis PA-C Unavailable [phone] Rodrigo ManC Unavailable [phone] Jeana-Noreen Miles APRN SUPERVISOR DRYING AND SOFTENING Unavailable Sudha Greene NP Primary Care Provider Agatha Null DPM, Podiatry /Foot and Ankle Surgery Unavailable [facility] - Nita [place] Unavailable Encounter Details Date Type Department Care Team (Late st Contact Info) Description 02/17/2018 [facility] [address] [address] Liya Gonzalez RN Social History Tobacco Use [...] documented as of this encounter Care Teams Apartment Maintenance Supervisor Relationship Specialty Start Date End Date Vanda Guerrero MD [address] [place] [address] [place] [address] PCP - General Internal Medicine 04/08/15 01/08/19 Vanda Guerrero MD [address] [place] [address] [place] [address] PCP - Assigned PCP 07/24/16 06/15/18 Noreen Flores APRN SUPERVISOR DRYING AND SOFTENING [address] [place] [address] [place] [address] PCP - Assigned PCP 06/16/18 08/13/18 Noreen Flores APRN SUPERVISOR DRYING AND SOFTENING [address] [place] [address] [place] [address] PCP - General Nurse Practitioner 01/09/19 12/12/21 Sudha Greene NP [address] [address] PCP - General 11/01/22 Noreen Flores APRN SUPERVISOR DRYING AND SOFTENING [address] [place] [address] [place] [address] Assigned PCP 06/16/18 05/26/22 Kalyan Galvan Personal Advocate & Liaison (PAL) 08/08/19 04/26/21 Lashae Trevino, [facility] [address] [place] [address] [place] [phone] Pharmacist Pharmacist 10/14/19 12/01/20 Eduardo Sharma MD [address] [place] [address] Assigned Sleep Provider 04/02/2005/07 [place] [address] [place] [address] Assigned Musculoskeletal Provider 04/02/20 08/24/20 Marcelo Artis PA-C [address] [place] [address] Assigned Musculoskeletal Provider 08/25/20 08/20/21 Rodrigo Man PA-C [address] [place] [address] Assigned Surgical Provider 08/25/20 11/27/20 Noreen Flores APRN SUPERVISOR DRYING AND SOFTENING [address] [facility] [place] [address] Assigned PCP 08/05/22 03/16/23 Agatha Null DPM, Podiatry/Foot and Ankle Surgery [address] [place] [address] Assigned Musculoskeletal Provider 11/04/22 Clinic - [facility] [place] [facility] [address] [facility] [place] [address] Assigned PCP 07/05/23 documented as of this encounter
--- OUTSIDE RECORDS SUMMARY | 2023-10-01 10:26 | XMS_ITS | Encounter Summary ---
Author Name Unknown Organization [place] Address [address] [place] [address] Care Team Providers Care Sql Server Dba Developer Name Role Phone Noreen Flores APRN LEAD PERSON Unavailable Noreen Flores APRN LEAD PERSON Primary Car e Provider Kalyan Galvan Unavailable Unavailable Lashae Trevino [facility] Unavailable Eduardo Sharma MD Unavailable Rios Monteiro MD Unavailable Marcelo Artis PA-C Unavailable Rodrigo Man PA-C Unavailable [phone] Noreen Flores APRN LEAD PERSON Unavailable Sudha Greene NP Primary Care Provider Agatha Null DPM, Podiatry /Foot and Ankle Surgery Unavailable Clinic - N[facility] [place] [facility] Unavailable Encounter Details Date Type Department Care Team (Late st Contact Info) Description 05/31/2019 Myra Moay [facility] [place] [address] [place] [address] Noreen Flores APRN CNP [address] [facility] [place] [address] Chronic seasonal allergic [...] Angel Faria RN - 06/02/2019 8:06 AM RIVER TRANSPORTATION WORKER Previous Rx did not successful e-scribe to pharmacy. Routing to PCP for approval. Please sent via fax. Multiple attempts in the past year with unsuccessful e-scribing. Route back to [facility] when completed. - Radu Faria RN Triage [facility] R TRANSPORTATION WORKER documented in this encounter Plan of [...] as of this encounter Care Teams Sql Server Dba Developer Relationship Specialty Start Date End Date Noreen Flores APRN LEAD PERSON [facility] [place] [address] PCP - General Nurse Practitioner 01/09/19 12/12/21 Sudha Greene NP [address] [address] PCP - General 11/01/22 Noreen Flores APRN LEAD PERSON [address] [facility] [place] [address] Assigned PCP 06/16/18 05/26/22 Kalyan Galvan Personal Advocate & Liaison (PAL) 08/08/19 04/26/21 Lashae Trevino, [facility] [address] [place] [address] [place] [address] Pharmacist Pharmacist 10/14/19 12/01/20 Eduardo Sharma MD [address] [place] [address] Assigned Sleep Provider 04/02/2005/07 [place] [address] [place] [address] Assigned Musculoskeletal Provider 04/02/20 08/24/20 Marcelo Artis PA-C [address] [place] [address] Assigned Musculoskeletal Provider 08/25/20 08/20/21 Rodrigo Man PA-C [address] [place] [address] Assigned Surgical Provider 08/25/20 11/27/20 Noreen Flores APRN LEAD PERSON [facility] [place] [address] Assigned PCP 08/05/22 03/16/23 Agatha Null, DPNita, Podiatry/Foot and Ankle Surgery [address] [place] [address] Assigned Musculoskeletal Provider 11/04/22 Clinic - [place]ita [place] [address] [place] [address] Assigned PCP 07/05/23 documented as of this encounter
--- OUTSIDE RECORDS SUMMARY | 2023-10-01 10:26 | XMS_ITS | Encounter Summary ---
Author Name Unknown Organization [place] Address [address] [place] [address] Care Team Providers Care Protein Purification Scientist Name Role Phone Noreen Flores APRN, CNP Unavailable Noreen Flores APRN, CNP Primary Car e Provider Kalyan Galvan Unavailable Unavailable Lashae Trevino [facility] Unavailable Eduardo Sharma MD Unavailable Rios Monteiro MD Unavailable [phone] Marcelo Artis PA-C Unavailable [phone] Rodrigo Man PA-C Unavailable [phone] Noreen Flores APRN, CNP Unavailable Sudha Greene NP Primary Care Provider Agatha Null DPM, Podiatry /Foot and Ankle Surgery Unavailable Clinic - [place] [facility] Unavailable Reason for Visit * Reason Onset Date Comments Refill Request 08/08/2019 DULoxetine (CYMB EDIN) 30 MG capsule Encounter Details Date Type Department Care Team (Late st Contact Info) Description 08/08/2019 Refill M [facility] [address] [facility] [address] [place] [phone] Noreen Flores APRN CNP [address] [facility] [address] Refill Request (DULoxetine (CYMBALTA) 30 MG capsule) [...] Answer Date Recorded PHQ-2 Score 2 07/25/2018 [facility] Occupat [facility] - Occupational Stress [...] Radha Manning RN - 08/13/2019 10:02 AM IT INFRASTRUCTURE ENGINEER Noreen: I spoke with the Pt. The Pt has been taking 1, 30 mg capsule, once per day. She does not want to goup to 60 mg. Yasmin sent this in for her. Radha Manning RN [facility] -- Triage Nurse INFRASTRUCTURE ENGINEER * Telephone Encounter - Noreen Hills APRN CNP - 08/11/2019 9:41 AM CST Please verify that she was previously taking 1 tab twice a day. If so, please switch it to 1, 60mg tab, once per day. Pls notify her of the change. INFRASTRUCTURE ENGINEER * Telephone Encounter - Gayathri Mcallister RN - 08/11/2019 9:38 AM IT INFRASTRUCTURE ENGINEER Please review sig for duloxetine, hydrochlorothiazide and metformin ( per review of last office visit 2000 mg daily of metformin, I am not sure about Duloxetine sig and dispense amount, Thank you) Gayathri Mcallister RN Message handled by Nurse Triage. INFRASTRUCTURE ENGINEER * Telephone Encounter - Kartik Javier - 08/08/2019 5:46 PM CST Also Review Rx directions for Metformin hydrochloride 500 mg. Pharmacy is requesting clarification. INFRASTRUCTURE ENGINEER * Telephone Encounter - Kartik Javier - 08/08/2019 2:39 PM CST Script Clarification: Rx has two sets of directions. Please send new Rx with the Proper Directions. Thanks. INFRASTRUCTURE ENGINEER documented in this encounter Plan of [...] Total Score: 9 08/09/19 20 7:03 AM IT INFRASTRUCTURE ENGINEER documented as of this encounter Care Teams Protein Purification Scientist Relationship Specialty Start Date End Date Noreen Flores APRN AERONAUTICAL PROJECT ENGINEER [facility] [place] [address] PCP - General Nurse Practitioner 01/09/19 12/12/21 Sudha Greene, MAURICIO [address] [address] PCP - General 11/01/22 Noreen Flores APRN AERONAUTICAL PROJECT ENGINEER [address] [place] [address] [place] [address] Assigned PCP 06/16/18 05/26/22 Kalyan Galvan Personal Advocate & Liaison (PAL) 08/08/19 04/26/21 [facility] [address] [place] [address] Pharmacist Pharmacist 10/14/19 12/01/20 Eduardo Sharma MD [address] [place] [address] [place] [id number] Assigned Sleep Provider 04/02/2005/07 [place] [address] [address] Assigned Musculoskeletal Provider 04/02/20 08/24/20 Marcelo Artis PA-C [address] [address] Assigned Musculoskeletal Provider 08/25/20 08/20/21 Rodrigo Man PA-C [address] [address] Assigned Surgical Provider 08/25/20 11/27/20 Noreen Flores APRN AERONAUTICAL PROJECT ENGINEER [address] [place] [address] [place] [address] Assigned PCP 08/05/22 03/16/23 Agatha Null DPM, Podiatry/Foot and Ankle Surgery [address] [place] [address] Assigned Musculoskeletal Provider 11/04/22 [facility] [place] [facility] [address] [place] [address] Assigned PCP 07/05/23 documented as of this encounter
--- OUTSIDE RECORDS SUMMARY | 2023-10-01 10:26 | XMS_ITS | Encounter Summary ---
Author Name Unknown Organization [facility] Address [address] [place] [address] Care Team Providers Care Family Life Counselor Name Role Phone Vanda Guerrero MD Primary Care Provider [phone] Noreen Flores APRN AUTO DISMANTLER Unavailable Noreen Flores APRN, CNP Primary Car e Provider Kalyan Galvan Unavailable Unavailable Lashae Trevino [facility] Unavailable Eduardo Sharma MD Unavailable Rios Monteiro MD Unavailable Marcelo Artis PA-C Unavailable Rodrigo Man PA-C Unavailable [phone] Noreen Flores APRN AUTO DISMANTLER Unavailable Sudha Greene NP Primary Care Provider [phone] Agatha Null DPM, Podiatry /Foot and Ankle Surgery Unavailable Clinic - [place] [facility] Unavailable Encounter Details Date Type Department Care Team (Late st Contact Info) Description 12/05/2018 [facility] [place] [address] [facility] [address] [place] [address] Noreen Flores APRN CNP [address] [facility] [place] [address] Social History Tobacco Use Types Packs/Day Years [...] Depression Total Score: 7 06/25/19 9:49 AM CLASSROOM AIDE documented as of this encounter Care Teams Family Life Counselor Relationship Specialty Start Date End Date Vanda Guerrero MD [address] [place] [address] [place] [address] PCP - General Internal Medicine 04/08/15 01/08/19 Noreen Flores APRN AUTO DISMANTLER [address] [place] [address] [place] [address] PCP - General Nurse Practitioner 01/09/19 12/12/21 Sudha Greene NP [address] [address] PCP - General 11/01/22 Noreen Flores APRN AUTO DISMANTLER [address] [place] [address] [place] [address] Assigned PCP 06/16/18 05/26/22 Kalyan Galvan Personal Advocate & Liaison (PAL) 08/08/19 04/26/21 Lashae Trevino [facility] [address] [facility] [place] [address] Pharmacist Pharmacist 10/14/19 12/01/20 Eduardo Sharma MD [address] [place] [address] [place], [place] 406475 Assigned Sleep Provider 04/02/2005/07 [place] [address] [facility] [address] [place] [address] Assigned Musculoskeletal Provider 04/02/20 08/24/20 Marcelo Artis PA-C [address] [facility] [address] [place] [address] Assigned Musculoskeletal Provider 08/25/20 08/20/21 Rodrigo Man PA-C [address] [place] [place], [place] 9[address]125 Assigned Surgical Provider 08/25/20 11/27/20 Noreen Flores APRN AUTO DISMANTLER [address] [place] [address] Assigned PCP 08/05/22 03/16/23 Agatha Null, DPM, Podiatry/Foot and Ankle Surgery [address] [facility] [address] [place], [place] 634917 Assigned Musculoskeletal Provider 11/04/22 [facility] [place] [address] [address] Assigned PCP 07/05/23 documented as of this encounter
--- OUTSIDE RECORDS SUMMARY | 2023-10-01 10:26 | XMS_ITS | Encounter Summary ---
Author Name Unknown Organization [place] Address [address] [place] [address] Care Team Providers Care Reel Blade Bender Furnace Tender Name Role Phone Vanda Guerrero MD Primary Care Provider [phone] Vanda Guerrero MD Unavailable [phone] Jeana-Noreen Miles APRN LICENSING REGISTRATION EXAMINER Unavailable [facility]-Noreen Miles APRN LICENSING REGISTRATION EXAMINER Unavailable [facility]-JdNoreen castro APRN LICENSING REGISTRATION EXAMINER Primary Car e Provider Kalyan Galvan Unavailable Unavailable Lashae Trevino [facility] Unavailable Eduardo Sharma MD Unavailable Rios Monteiro MD Unavailable [phone] Marcelo Artis PA-C Unavailable Rodrigo ManC Unavailable Jeana-JdNoreen castro APRN LICENSING REGISTRATION EXAMINER Unavailable Sudha Greene NP Primary Care Provider Agatha Null DPM, Podiatry /Foot and Ankle Surgery Unavailable [facility] [place] [facility] Unavailable Reason for Visit * Reason Onset Date Comments MyChart Communication 02/05/2018 Encounter Details Date Type Department Care Team (Late st Contact Info) Description 02/05/2018 [facility] [place] [address] [place] [address] Drive [address] [place] [address] Vanda Guerrero MD [address] [place] [address] [place] [address] MyChart Communication Social History Tobacco Use Types [...] Total Score: 12 06/12/ 018 1:02 PM MIDWIFE documented as of this encounter Care Teams Reel Blade Bender Furnace Tender Relationship Specialty Start Date End Date Vanda Guerrero MD [address] [place] [address] [place] [address] PCP - General Internal Medicine 04/08/15 01/08/19 Vanda Guerrero MD [address] [place] [address] [place] [address] PCP - Assigned PCP 07/24/16 06/15/18 Noreen Flores APRN LICENSING REGISTRATION EXAMINER [address] [place] [address] [place] [address] PCP - Assigned PCP 06/16/18 08/13/18 Noreen Flores APRN LICENSING REGISTRATION EXAMINER [address] [facility] [place] [address] PCP - General Nurse Practitioner 01/09/19 12/12/21 Sudha Greene NP [address] [address] PCP - General 11/01/22 [facility] LICENSING REGISTRATION EXAMINER [address] [place] [address] [place] [address] Assigned PCP 06/16/18 05/26/22 Kalyan Galvan Personal Advocate & Liaison (PAL) 08/08/19 04/26/21 [facility] [address] [place] [address] [place] [address] Pharmacist Pharmacist 10/14/19 12/01/20 Eduardo Sharma MD [address] [place] [address] [place] [address] Assigned Sleep Provider 04/02/2005/07 [place] [address] [facility] 300 [place] [address] Assigned Musculoskeletal Provider 04/02/20 08/24/20 Marcelo Artis PA-C [address] [facility] [address] [place] [address] Assigned Musculoskeletal Provider 08/25/20 08/20/21 Rodrigo Man PA-C [address] [place] [address] [place] [address] Assigned Surgical Provider 08/25/20 11/27/20 Noreen Flores APRN LICENSING REGISTRATION EXAMINER [address] [facility] [place] [address] Assigned PCP 08/05/22 03/16/23 Agatha Null DPM, Podiatry/Foot and Ankle Surgery [address] [place] [address] [place] [address] Assigned Musculoskeletal Provider 11/04/22 [facility] - [place] [place] [facility] [address] [facility] [place] [address] Assigned PCP 07/05/23 documented as of this encounter
--- OUTSIDE RECORDS SUMMARY | 2023-10-01 10:26 | XMS_ITS | Encounter Summary ---
Author Name Unknown Organization [facility] Address [address] [place] [address] Care Team Providers Care Chuck Wagon Cook Name Role Phone Vanda Guerrero MD Primary Care Provider [phone] Vanda Guerrero MD Unavailable [phone] Jeana-Noreen Miles APRN ADMINISTRATIVE RESIDENT Unavailable [facility]-Noreen Miles APRN ADMINISTRATIVE RESIDENT Unavailable [facility]-JdNoreen castro APRN ADMINISTRATIVE RESIDENT Primary Car e Provider Kalyan Galvan Unavailable Unavailable Lashae Trevino [facility] Unavailable Eduardo Sharma MD Unavailable Rios Monteiro MD Unavailable Marcelo Artis PA-C Unavailable [phone] Rodrigo ManC Unavailable [phone] Jeana-Noreen Miles APRN ADMINISTRATIVE RESIDENT Unavailable Sudha Greene NP Primary Care Provider Agatha Null DPM, Podiatry /Foot and Ankle Surgery Unavailable [facility] [place] [facility] Unavailable Reason for Visit * Reason Onset Date Comments Patient/info Update 07/18/2017 post C7-T1 i nterlaminar epidural steroid injection Encounter Details Date Type Department Care Team (Late st Contact Info) Description 07/18/2017 Telephone [facility] Pain Management [place] [address] [facility] [address] [place], [place] [address] Jim Wang MD [address] [place] [address] Patient/info Update (post C7-T1 interlaminar epidural steroid [...] pt should call the nurse line at [phone]. STANT CONTROLLER documented in this encounter Plan of Treatment Not on file documented as of this encounter Visit Diagnoses Not on filedocumented in this encounter Additional Health Concerns Infection Onset Date Last Indicated Resolved Time Rule Out COVID-19 08/25/2020 08/25/2020 08/26/2020 3:23 PM CDT Rule Out COVID-19 11/26/2022 11/26/2022 11/27/2022 3:38 PM CDT Assessment Noted Time PHQ-9 Depression Total Score: 12 018 1:02 PM ASSISTANT CONTROLLER documented as of this encounter Care Teams Chuck Wagon Cook Relationship Specialty Start Date End Date Vanda Guerrero MD [address] [place] [address] [place] [address] PCP - General Internal Medicine 04/08/15 01/08/19 Vanda Guerrero MD [address] [place] [address] [place] [address] PCP - Assigned PCP 07/24/16 06/15/18 Noreen Flores APRN ADMINISTRATIVE RESIDENT [address] [place] [address] [place] [address] PCP - Assigned PCP 06/16/18 08/13/18 Noreen Flores APRN ADMINISTRATIVE RESIDENT [address] [place] [address] [place] [address] PCP - General Nurse Practitioner 01/09/19 12/12/21 Sudha Greene, MAURICIO [address] [address] PCP - General 11/01/22 Noreen Flores APRN ADMINISTRATIVE RESIDENT [address] [place] [address] [place] [address] Assigned PCP 06/16/18 05/26/22 Kalyan Galvan Personal Advocate & Liaison (PAL) 08/08/19 04/26/21 Lashae Trevino, [facility] [address] [place] [address] Pharmacist Pharmacist 10/14/19 12/01/20 Eduardo Sharma MD [address] [place] [address] [place] [address] Assigned Sleep Provider 04/02/2005/[address] [place] [address] [facility] 300 [place] [address] Assigned Musculoskeletal Provider 04/02/20 08/24/20 Marcelo Artis PA-C [address] [facility] 300 [place] [address] Assigned Musculoskeletal Provider 08/25/20 08/20/21 Rodrigo Man PA-C [address] [address] [place] [address] Assigned Surgical Provider 08/25/20 11/27/20 Noreen Flores APRN ADMINISTRATIVE RESIDENT [address] [place] [address] [place] [id number] Assigned PCP 08/05/22 03/16/23 Agatha Null DPM, Podiatry/Foot and Ankle Surgery [address] [place] [address] [address] [place] [address] Assigned Musculoskeletal Provider 11/04/22 [facility] [address] [facility] [place] [id number] Assigned PCP 07/05/23 documented as of this encounter
--- OUTSIDE RECORDS SUMMARY | 2023-10-01 10:26 | XMS_ITS | Encounter Summary ---
Author Name Unknown Organization [place] Address [address] [place] [address] Care Team Providers Care Shop Laborer Name Role Phone Noreen Flores APRN TELEPHONE STATION INSTALLER Unavailable Noreen Flores APRN TELEPHONE STATION INSTALLER Primary Car e Provider Kalyan Galvan Unavailable Unavailable Lashae Trevino [facility] Unavailable Eduardo Sharma MD Unavailable Rios Monteiro MD Unavailable Marcelo Artis PA-C Unavailable Rodrigo Man PA-C Unavailable [phone] Noreen Flores APRN, CNP Unavailable Sudha Greene NP Primary Care Provider Agatha Null DPM, Podiatry /Foot and Ankle Surgery Unavailable Clinic - [place] [facility] Unavailable Encounter Details Date Type Department Care Team (Late st Contact Info) Description 05/30/2019 Myra [facility] [address] [facility] [address] [place] [address] Christi Panda MA Social History [...] documented as of this encounter Care Teams Shop Laborer Relationship Specialty Start Date End Date Noreen Flores APRN TELEPHONE STATION INSTALLER [address] [facility] [place] [address] PCP - General Nurse Practitioner 01/09/19 12/12/21 Sudha Greene NP [address] [address] PCP - General 11/01/22 Noreen Flores APRN TELEPHONE STATION INSTALLER [address] [place] [address] [place] [address] Assigned PCP 06/16/18 05/26/22 Kalyan Galvan Personal Advocate & Liaison (PAL) 08/08/19 04/26/21 Lashae Trevino, [facility] [address] [place] [address] Pharmacist Pharmacist 10/14/19 12/01/20 Eduardo Sharma MD [address] [place] [address] [place] [address] Assigned Sleep Provider 04/02/2005/07 [place] [address] [place] [address] [address] [place] [address] Assigned Musculoskeletal Provider 04/02/20 08/24/20 Marcelo Artis PAMarlon [address] [facility] 300 [place] [address] Assigned Musculoskeletal Provider 08/25/20 08/20/21 Rodrigo Man PA-C [address] [facility] [address] [place] [address] Assigned Surgical Provider 08/25/20 11/27/20 Noreen Flores APRN TELEPHONE STATION INSTALLER [address] [place] [address] [place] [id number] Assigned PCP 08/05/22 03/16/23 Agatha Null DPM, Podiatry/Foot and Ankle Surgery [address] [place] [address] [facility] [address] [place] [address] Assigned Musculoskeletal Provider 11/04/22 [facility] [place] [facility] [address] [facility] [place] [id number] Assigned PCP 07/05/23 documented as of this encounter
--- OUTSIDE RECORDS SUMMARY | 2023-10-01 10:26 | XMS_ITS | Encounter Summary ---
Author Name Unknown Organization [place] Address [address] [place] [address] Care Team Providers Care Energy Sales Broker Name Role Phone Vanda Guerrero MD Primary Care Provider [phone] Vanda Guerrero MD Unavailable [phone] Jeana-Noreen Miles APRN PACKING HOUSE SUPERVISOR Unavailable JeanaNoreen Garcia APRN PACKING HOUSE SUPERVISOR Unavailable Jeana-JdNoreen castro APRN PACKING HOUSE SUPERVISOR Primary Car e Provider Kalyan Galvan Unavailable Unavailable Lashae Trevino [facility] Unavailable Eduardo Sharma MD Unavailable Rios Monteiro MD Unavailable Marcelo Artis PA-C Unavailable Rodrigo ManC Unavailable Jeana-JdNoreen castro APRN PACKING HOUSE SUPERVISOR Unavailable Sudha Greene NP Primary Care Provider Agatha Null DPM, Podiatry /Foot and Ankle Surgery Unavailable [facility] - [place] [facility] Unavailable Encounter Details Date Type Department Care Team (Late st Contact Info) Description 03/21/2017 [facility] [address] [place] [address] Dusty Oneil [facility] Social History Tobacco Use Types [...] documented as of this encounter Care Teams Energy Sales Broker Relationship Specialty Start Date End Date Vanda Guerrero MD [address] [place] [address] [place] [address] PCP - General Internal Medicine 04/08/15 01/08/19 Vanda Guerrero MD [address] [place] [address] [place] [address] PCP - Assigned PCP 07/24/16 06/15/18 Noreen Flores APRN PACKING HOUSE SUPERVISOR [address] [place] [address] [place] [address] PCP - Assigned PCP 06/16/18 08/13/18 Noreen Flores APRN PACKING HOUSE SUPERVISOR [address] [place] [address] [place] [address] PCP - General Nurse Practitioner 01/09/19 12/12/21 Sudha Greene NP [address] [address] PCP - General 11/01/22 Noreen Flores APRN PACKING HOUSE SUPERVISOR [address] [facility] [place] [address] Assigned PCP 06/16/18 05/26/22 Kalyan Galvan Personal Advocate & Liaison (PAL) 08/08/19 04/26/21 Lashae Trevino [facility] [address] [facility] [place] [address] Pharmacist Pharmacist 10/14/19 12/01/20 Eduardo Sharma MD [address] [place] [place] [address] Assigned Sleep Provider 04/02/2005/07 [place] [address] [facility] 300 [place] [address] Assigned Musculoskeletal Provider 04/02/20 08/24/20 Marcelo Artis PA-C [address] [facility] [address] [place] [address] Assigned Musculoskeletal Provider 08/25/20 08/20/21 Rodrigo Man PA-C [address] [place] [address] [place] [address] Assigned Surgical Provider 08/25/20 11/27/20 Noreen Flores APRN PACKING HOUSE SUPERVISOR [address] [facility] [place] [address] Assigned PCP 08/05/22 03/16/23 Agatha Null DPM, Podiatry/Foot and Ankle Surgery [address] [place] [place] [address] Assigned Musculoskeletal Provider 11/04/22 [facility] - [place] [facility] [address] [facility] [place] [address] Assigned PCP 07/05/23 documented as of this encounter
--- OUTSIDE RECORDS SUMMARY | 2023-10-01 10:26 | XMS_ITS | Encounter Summary ---
Author Name Unknown Organization [place] Address [address] [place] [address] Care Team Providers Care Social Media Community Manager Name Role Phone Vanda Guerrero MD Primary Care Provider [phone] Noreen Flores APRN FOOTWEAR SALES REPRESENTATIVE Unavailable Noreen Flores APRN FOOTWEAR SALES REPRESENTATIVE Primary Car e Provider Kalyan Galvan Unavailable Unavailable Lashae Trevino [facility] Unavailable [phone] Eduardo Sharma MD Unavailable Rios Monteiro MD Unavailable [phone] Marcelo Artis PA-C Unavailable Rodrigo Man PA-C Unavailable [phone] Noreen Flores APRN FOOTWEAR SALES REPRESENTATIVE Unavailable Sudha Greene NP Primary Care Provider Agatha Null DPM, Podiatry /Foot and Ankle Surgery Unavailable [facility] - [place] [facility] Unavailable Encounter Details Date Type Department Care Team (Late st Contact Info) Description 12/09/2018 [facility] [address] [facility] [address] [place] [address] Christi Panda MA Social History Tobacco [...] Depression Total Score: 7 06/25/19 9:49 AM VOLLEYBALL PLAYER documented as of this encounter Care Teams Social Media Community Manager Relationship Specialty Start Date End Date Vanda Guerrero MD [address] [place] [address] [place] [address] PCP - General Internal Medicine 04/08/15 01/08/19 Noreen Flores APRN FOOTWEAR SALES REPRESENTATIVE [address] [place] [address] [place] [address] PCP - General Nurse Practitioner 01/09/19 12/12/21 Sudha Greene NP [address] [address] PCP - General 11/01/22 Noreen Flores APRN FOOTWEAR SALES REPRESENTATIVE [address] [place] [address] [place] [address] Assigned PCP 06/16/18 05/26/22 Kalyan Galvan Personal Advocate & Liaison (PAL) 08/08/19 04/26/21 [facility] [place] [address] Pharmacist Pharmacist 10/14/19 12/01/20 Eduardo Sharma MD [address] [place] [address] Assigned Sleep Provider 04/02/2005/07 [place] [id number] [place] [address] [address] [place] 065037 Assigned Musculoskeletal Provider 04/02/20 08/24/20 Marcelo Artis PA-C [address] [place] [address] [address] [place] [address] Assigned Musculoskeletal Provider 08/25/20 08/20/21 Rodrigo Man PA-C [address] [place] [id number] Assigned Surgical Provider 08/25/20 11/27/20 Noreen Flores APRN FOOTWEAR SALES REPRESENTATIVE [address] [place] [address] [place] [address] Assigned PCP 08/05/22 03/16/23 Agatha Null DPM, Podiatry/Foot and Ankle Surgery [address] [place] [address] Assigned Musculoskeletal Provider 11/04/22 [facility] [place] [facility] [address] [facility] [place] [address] Assigned PCP 07/05/23 documented as of this encounter
--- OUTSIDE RECORDS SUMMARY | 2023-10-01 10:26 | XMS_ITS | Encounter Summary ---
Author Name Unknown Organization [place] Address [address] [place] [address] Care Team Providers Care Immigration Officer Name Role Phone Noreen Flores APRN, CNP Unavailable Noreen Flores APRN, CNP Primary Car e Provider Kalyan Galvan Unavailable Unavailable Lashae Trevino [facility] Unavailable Eduardo Sharma MD Unavailable Rios Monteiro MD Unavailable [phone] Marcelo Artis PA-C Unavailable Rodrigo Man PA-C Unavailable [phone] Noreen Flores APRN, CNP Unavailable Sudha Greene NP Primary Care Provider [phone] Agatha Null DPM, Podiatry /Foot and Ankle Surgery Unavailable [facility] - [facility] Unavailable Reason for Visit * Reason Onset Date Comments Medication Refill 04/25/2019 metFORMIN (GLU COPHAGE) 500 MG tablet Encounter Details Date Type Department Care Team (Late st Contact Info) Description 04/25/2019 Refill M [facility] [address] [facility] [address] [place] [address] Noreen Flores APRN CNP [address] [facility] [place] [address] Medication Refill (metFORMIN (GLUCOPHAGE) 500 MG tablet) [...] Kimberley Bryan RN - 04/28/2019 11:47 AM MATERIALS AND CORROSION ENGINEER Routing refill request to provider for review/approval because: Labs not current: LDL, creatinine Due for appointment RIALS AND CORROSION ENGINEER * Telephone Encounter - Lara Villalba - [...] & Orders section of the refill encounter. RIALS AND CORROSION ENGINEER documented in this encounter Plan of [...] documented as of this encounter Care Teams Immigration Officer Relationship Specialty Start Date End Date Noreen Flores APRN CREW CHIEF [address] [place] [address] [place] [address] PCP - General Nurse Practitioner 01/09/19 12/12/21 Sudha Greene NP [facility] - [address] [place] [address] PCP - General 11/01/22 Noreen Flores APRN CREW CHIEF [address] [place] [address] [place] [address] Assigned PCP 06/16/18 05/26/22 Kalyan Galvan Personal Advocate & Liaison (PAL) 08/08/19 04/26/21 [facility] [address] [place] [address] [place] [address] Pharmacist Pharmacist 10/14/19 12/01/20 Eduardo Sharma MD [address] [place] [address] [place] [address] Assigned Sleep Provider 04/02/2005/07 [place] [address] [place] [address] [place] [address] Assigned Musculoskeletal Provider 04/02/20 08/24/20 Marcelo Artis PA-C [address] [place] [address] [place] [address] Assigned Musculoskeletal Provider 08/25/20 08/20/21 Rodrigo Man PA-C [address] [place] [address] [place] [address] Assigned Surgical Provider 08/25/20 11/27/20 Noreen Flores APRN CREW CHIEF [address] [place] [address] [place] [address] Assigned PCP 08/05/22 03/16/23 Agatha Null, MARÍA, Podiatry/Foot and Ankle Surgery [address] [place] [address] Assigned Musculoskeletal Provider 11/04/22 [facility] - [facility] [address] [place] [id number] Assigned PCP 07/05/23 documented as of this encounter
--- OUTSIDE RECORDS SUMMARY | 2023-10-01 10:26 | XMS_ITS | Encounter Summary ---
Author Name Unknown Organization [place] Address [address] [place] [address] Care Team Providers Care Deckhand Sponge Boat Name Role Phone Vanda Guerrero MD Primary Care Provider [phone] Vanda Guerrero MD Unavailable [phone] Jeana-Noreen Miles APRN SMALL ENGINE SPECIALIST Unavailable [facility]-Noreen Miles APRN SMALL ENGINE SPECIALIST Unavailable [facility]-JdNoreen castro APRN SMALL ENGINE SPECIALIST Primary Car e Provider Kalyan Galvan Unavailable Unavailable Lashae Trevino [facility] Unavailable Eduardo Sharma MD Unavailable Rios Monteiro MD Unavailable Marcelo ArtisC Unavailable [phone] Rodrigo Man-C Unavailable Jeana-Noreen Miles APRN SMALL ENGINE SPECIALIST Unavailable Sudha Greene NP Primary Care Provider Agatha Null DPM, Podiatry /Foot and Ankle Surgery [facility] Unavailable Reason for Referral * Diagnostic Imaging Ultrasound - Closed Specialty Diagnoses / Procedures Referred By Rylie t Referred To Contact Radiology. Diagnoses Alkaline phosphatase elevation Procedures [place] [address] [place] [address] [place] [address] Rh Ultrasound Rs[facility] [address] [facility] [address] [place] [address] Referral ID Status Reason Start Date Expiration Date Visits Re quested Visits Authorized [id number] Closed 06/15/2017 06/15/2018 1 1 STERED NURSE Reason for Visit * Reason Onset Date Comments Lab Result Notice 06/15/2017 response to 06/12/17 result note Encounter Details Date Type Department Care Team (Late st Contact Info) Description 06/15/2017 MyC Medical Advice [facility] [address] [facility] [address] [place] [phone] Vanda Guerrero MD [address] [place] [address] [place] [id number] Lab Result Notice (response to 06/12/17 resu... [...] Kallie Celaya RN - 06/15/2017 4:26 PM REGISTERED NURSE Sent eoSemi message. STERED NURSE * Telephone Encounter - Vanda Guerrero MD - 06/15/2017 2:48 PM REGISTERED NURSE Orders placed - please let patient know. STERED NURSE * Telephone Encounter - Kallie eClaya RN - 06/15/2017 2:31 PM REGISTERED NURSE Patient ok to restart Metformin & for US. T'd up. Please advise. STERED NURSE documented in this encounter Plan of Treatment Not on file documented as of this encounter Results * US Abdomen Limited (06/21/2017 10:11 AM REGISTERED NURSE) Anatomical Region Laterality Modality Abdomen/Pelvis Ultrasound Impressions 06/21/2017 10:49 AM REGISTERED NURSE IMPRESSION: ??Fatty infiltration of the liver. No gallstones or bile duct dilatation. BRIDGETTE LOZA MD Narrative 06/21/2017 10:49 AM REGISTERED NURSE ULTRASOUND ABDOMEN LIMITED 06/21/2017 10:11 AM HISTORY: [...] Depression Total Score: 12 018 1:02 PM REGISTERED NURSE documented as of this encounter Care Teams Deckhand Sponge Boat Relationship Specialty Start Date End Date Vanda Guerrero MD [address] [place] [address] [place] [address] PCP - General Internal Medicine 04/08/15 01/08/19 Vanda Guerrero MD [address] [place] [address] [place] [address] PCP - Assigned PCP 07/24/16 06/15/18 Noreen Flores APRN SMALL ENGINE SPECIALIST [address] [place] [address] [place] [address] PCP - Assigned PCP 06/16/18 08/13/18 Noreen Flores APRN SMALL ENGINE SPECIALIST [address] [place] [address] [place] [address] PCP - General Nurse Practitioner 01/09/19 12/12/21 Sudha Greene, [place] [address] [address] PCP - General 11/01/22 Noreen Flores APRN SMALL ENGINE SPECIALIST [address] [place] [address] [place] [address] Assigned PCP 06/16/18 05/26/22 Kalyan Galvan Personal Advocate & Liaison (PAL) 08/08/19 04/26/21 Lashae Trevino, [facility] [address] [place] [address] Pharmacist Pharmacist 10/14/19 12/01/20 Eduardo Sharma MD [address] [place] [address] [place] 373475 Assigned Sleep Provider 04/02/2005/07 [place] [address] [facility] [address] [place], [place] 262357 Assigned Musculoskeletal Provider 04/02/20 08/24/20 Marcelo Artis PA-C [id number] [place] [address] 300 [place] [address] Assigned Musculoskeletal Provider 08/25/20 08/20/21 Rodrigo Man PA-C [address] [place] [place] [address] Assigned Surgical Provider 08/25/20 11/27/20 Noreen Flores APRN CNP [address] [place] [address] [place] [address] Assigned PCP 08/05/22 03/16/23 Agatha Null DPM, Podiatry/Foot and Ankle Surgery [address] [place] [address] [address] [place] [address] Assigned Musculoskeletal Provider 11/04/22 [facility] [place] [facility] [address] [facility] [place] [address] Assigned PCP 07/05/23 documented as of this encounter
--- OUTSIDE RECORDS SUMMARY | 2023-10-01 10:26 | XMS_ITS | Encounter Summary ---
Author Name Unknown Organization [place] Address [address] [place] [address] Care Team Providers Care Technology Services Manager Name Role Phone Vanda Guerrero MD Primary Care Provider [phone] Vanda Guerrero MD Unavailable [phone] Jeana-Noreen Miles APRN STEWARD/STEWARDESS SECOND CLASS Unavailable [facility]-Noreen Miles APRN STEWARD/STEWARDESS SECOND CLASS Unavailable [facility]-JdNoreen castro APRN STEWARD/STEWARDESS SECOND CLASS Primary Car e Provider Kalyan Galvan Unavailable Unavailable Lashae Trevino [facility] Unavailable Eduardo Sharma MD Unavailable Riso Monteiro MD Unavailable [phone] Marcelo Artis PA-C Unavailable [phone] Rodrigo ManC Unavailable Jeana-JdNoreen castro APRN STEWARD/STEWARDESS SECOND CLASS Unavailable Sudha Greene NP Primary Care Provider [phone] Agatha Null DPM, Podiatry /Foot and Ankle Surgery Unavailable [facility] [place] [facility] Unavailable Reason for Visit * Reason Comments Medication Refill ONETOUCH ULTRA test strip; simvastatin (ZOCOR) 20 MG tablet Encounter Details Date Type Department Care Team (Late st Contact Info) Description 12/21/2017 Refill [facility] [place] [address] [address] [facility] [address] [place] [address] Vanda Guerrero MD [address] [facility] [place] [address] Medication Refill (ONETOUCH ULTRA test strip; simvastatin [...] 12/25/2017 10:56 AM CDT Prescription approved per [facility] Refill Protocol. Day Greene RN, BSN * [...] Depression Total Score: 12 018 1:02 PM MERCHANDISE DELIVERER documented as of this encounter Care Teams Technology Services Manager Relationship Specialty Start Date End Date Vanda Guerrero [place] [address] [facility] [place] [address] PCP - General Internal Medicine 04/08/15 01/08/19 Vanda Guerrero MD [address] [facility] [place] [address] PCP - Assigned PCP 07/24/16 06/15/18 Noreen Flores APRN STEWARD/STEWARDESS SECOND CLASS [address] [place] [address] [place] [address] PCP - Assigned PCP 06/16/18 08/13/18 Noreen Flores APRN STEWARD/STEWARDESS SECOND CLASS [address] [place] [address] [place] [address] PCP - General Nurse Practitioner 01/09/19 12/12/21 Sudha Greene, MA[place]IC[place] [address] [address] PCP - General 11/01/22 Noreen Flores APRN STEWARD/STEWARDESS SECOND CLASS [address] [place] [address] [place] [address] Assigned PCP 06/16/18 05/26/22 Kalyan Galvan Personal Advocate & Liaison (PAL) 08/08/19 04/26/21 [facility] [address] [facility] [place] [phone] Pharmacist Pharmacist 10/14/19 12/01/20 Eduardo Sharma MD [address] [facility] 103 [place] [address]25[address] Assigned Sleep Provider 04/02/2005/07 [place] [address] [facility] 300 [place] 833107 Assigned Musculoskeletal Provider 04/02/20 08/24/20 Marcelo Artis PA-C [address] [address] Assigned Musculoskeletal Provider 08/25/20 08/20/21 Rodrigo Man PA-C [address] [address] Assigned Surgical Provider 08/25/20 11/27/20 Noreen Flores APRN STEWARD/STEWARDESS SECOND CLASS [address] [place] [address] [place] [address] Assigned PCP 08/05/22 03/16/23 Agatha Null DPM, Podiatry/Foot and Ankle Surgery [address] [place] [address] 300 [place] [address] Assigned Musculoskeletal Provider 11/04/22 [facility] - [facility] [place] [address] [place] [address] [address] Assigned PCP 07/05/23 documented as of this encounter
--- OUTSIDE RECORDS SUMMARY | 2023-10-01 10:26 | XMS_ITS | Encounter Summary ---
Author Name Unknown Organization [place] Address [address] [place] [address] Care Team Providers Care Fiscal Analyst Name Role Phone Vanda Guerrero MD Primary Care Provider [phone] Vanda Guerrero MD Unavailable [phone] Jeana-Noreen Miles APRN PRINCIPAL MECHANICAL ENGINEER Unavailable [facility]-Noreen Miles APRN PRINCIPAL MECHANICAL ENGINEER Unavailable [facility]-JdNoreen castro APRN PRINCIPAL MECHANICAL ENGINEER Primary Car e Provider Kalyan Galvan Unavailable Unavailable Lashae Trevino [facility] Unavailable Eduardo Sharma MD Unavailable Rios Monteiro MD Unavailable Marcelo Artis PA-C Unavailable Rodrigo ManC Unavailable Jeana-JdNoreen castro APRN PRINCIPAL MECHANICAL ENGINEER Unavailable Suhda Greene NP Primary Care Provider Agatha Null DPM, Podiatry /Foot and Ankle Surgery Unavailable [facility] [place] [facility] Unavailable Reason for Visit * Reason Onset Date Comments Refill Request 03/04/2018 loratadine-pseud oePHEDrine ([facility] ALLERGY RELIEF-D) 10- 240 MG per 24 hr tablet Encounter Details Date Type Department Care Team (Late st Contact Info) Description 03/04/2018 Refill [facility] [place] [address] [facility] [address] [place] [phone] Vanda Guerrero MD [address] [facility] [place] [address] Refill Request (loratadine-pseudoePHED rine ([facility] ALLERGY RELIEF-D) [...] and in station out basket or on MA/GLAZE MAKER/RN desk * Telephone Encounter - Kartik Javier [...] Drug not on the G, P or [facility] refill protocol or controlled substance documented in [...] documented as of this encounter Care Teams Fiscal Analyst Relationship Specialty Start Date End Date Vanda Guerrero MD [address] [place] [address] [place] [address] PCP - General Internal Medicine 04/08/15 01/08/19 Vanda Guerrero MD [address] [place] [address] [place] [address] PCP - Assigned PCP 07/24/16 06/15/18 Noreen Flores APRN PRINCIPAL MECHANICAL ENGINEER [address] [place] [address] [place] [address] PCP - Assigned PCP 06/16/18 08/13/18 Noreen Flores APRN PRINCIPAL MECHANICAL ENGINEER [address] [place] [address] [place] [address] PCP - General Nurse Practitioner 01/09/19 12/12/21 Sudha Greene NP [address] [address] PCP - General 11/01/22 Noreen Flores APRN PRINCIPAL MECHANICAL ENGINEER [address] [place] [address] [place] [address] Assigned PCP 06/16/18 05/26/22 Kalyan Galvan Personal Advocate & Liaison (PAL) 08/08/19 04/26/21 [facility] [address] [facility] [place] [address] Pharmacist Pharmacist 10/14/19 12/01/20 Eduardo Sharma MD [address] [place] [address] [place] [address] Assigned Sleep Provider 04/02/2005/07 [place] [address] [place] [address] [place] [address] Assigned Musculoskeletal Provider 04/02/20 08/24/20 Marcelo Artis PA-C [address] [place] [address] [place] [address] Assigned Musculoskeletal Provider 08/25/20 08/20/21 Rodrigo Man PA-C [address] [place] [address] [place] [address] Assigned Surgical Provider 08/25/20 11/27/20 Noreen Flores APRN PRINCIPAL MECHANICAL ENGINEER [address] [place] [address] [place] [address] Assigned PCP 08/05/22 03/16/23 Agatha Null, MARÍA, Podiatry/Foot and Ankle Surgery [address] [place] [address] Assigned Musculoskeletal Provider 11/04/22 [facility] [place] [address] [address] Assigned PCP 07/05/23 documented as of this encounter
--- OUTSIDE RECORDS SUMMARY | 2023-10-01 10:26 | XMS_ITS | Encounter Summary ---
Author Name Unknown Organization [place] Address [address] [place] [address] Care Team Providers Care Barista Name Role Phone Noreen Flores APRN CORPORATE OFFICER Unavailable Noreen Flores APRN CORPORATE OFFICER Primary Car e Provider Kalyan Galvan Unavailable Unavailable Lashae Trevino [facility] Unavailable [phone] Eduardo Sharma MD Unavailable Rios Monteiro MD Unavailable Marcelo Artis PA-C Unavailable Rodrigo Man PA-C Unavailable [phone] Noreen Flores APRN, CNP Unavailable Sudha Greene NP Primary Care Provider Agatha Null DPM, Podiatry /Foot and Ankle Surgery Unavailable Clinic - [facility] Unavailable Encounter Details Date Type Department Care Team (Late st Contact Info) Description 10/06/2019 [facility] Neuro[facility] [address] [phone] Patricia Bonilla Social History Tobacco [...] Friends and Family Patient declined 08/08/2019 Attends [employer] Patient declined 07/13 Active Member of [...] Answer Date Recorded PHQ-2 Score 2 07/25/2018 [facility] [place] of Occupat ional Health - Occupational Stress [...] Total Score: 9 08/09/19 20 7:03 AM ADULT DAYCARE COORDINATOR documented as of this encounter Care Teams Barista Relationship Specialty Start Date End Date Noreen Flores APRN CORPORATE OFFICER [address] [place] [address] [place] [address] PCP - General Nurse Practitioner 01/09/19 12/12/21 Sudha Greene NP [address] [address] PCP - General 11/01/22 Noreen Flores APRN CORPORATE OFFICER [address] [place] [address] [place] [address] Assigned PCP 06/16/18 05/26/22 Kalyan Galvan Personal Advocate & Liaison (PAL) 08/08/19 04/26/21 Lashae Trevino [facility] 14[address] [facility] [place] [address] Pharmacist Pharmacist 10/14/19 12/01/20 Eduardo Sharma MD [address] [facility] 103 [place] [address] Assigned Sleep Provider 04/02/2005/07 [place] [address] [facility] 300 [place] [address] Assigned Musculoskeletal Provider 04/02/20 08/24/20 Marcelo Artis PA-C [address] [facility] [address] [place] [address] Assigned Musculoskeletal Provider 08/25/20 08/20/21 Rodrigo Man PA-C [address] [facility] 450 [place] [address] Assigned Surgical Provider 08/25/20 11/27/20 Noreen Flores APRN CORPORATE OFFICER [address] [place] [address] [place] [address] Assigned PCP 08/05/22 03/16/23 Agatha Null DPM, Podiatry/Foot and Ankle Surgery [address] [facility] 300 [place] [address] Assigned Musculoskeletal Provider 11/04/22 [facility] - [facility] [place] [facility] [address] [facility] [place] [id number] Assigned PCP 07/05/23 documented as of this encounter
--- OUTSIDE RECORDS SUMMARY | 2023-10-01 10:26 | XMS_ITS | Encounter Summary ---
Author Name Unknown Organization [place] Address [address] [place] [address] Care Team Providers Care Grievance And Appeals Specialist Name Role Phone Vanda Guerrero MD Primary Care Provider [phone] Vanda Guerrero MD Unavailable [phone] Jeana-Noreen Miles APRN TELECOMMUNICATIONS NETWORK ENGINEER Unavailable JeanaNoreen Garcia APRN TELECOMMUNICATIONS NETWORK ENGINEER Unavailable Jeana-JdNoreen castro APRN TELECOMMUNICATIONS NETWORK ENGINEER Primary Car e Provider Kalyan Galvan Unavailable Unavailable aLshae Trevino [facility] Unavailable [phone] Eduardo Sharma MD Unavailable Rios Monteiro MD Unavailable [phone] Marcelo Artis PA-C Unavailable [phone] Rodrigo ManC Unavailable Jeana-JdNoreen castro APRN TELECOMMUNICATIONS NETWORK ENGINEER Unavailable Sudha Greene NP Primary Care Provider Agatha NullM, Podiatry /Foot and Ankle Surgery Unavailable [facility] - [facility] [place] Unavailable Encounter Details Date Type Department Care Team (Late st Contact Info) Description 12/05/2016 [facility] [address] [place] [address] Heath Sandy Rodríguezne, [facility] [address] [facility] [place] [address] Social History Tobacco Use Types Packs/Day Years [...] documented as of this encounter Care Teams Grievance And Appeals Specialist Relationship Specialty Start Date End Date Vanda Guerrero MD [address] [place] [address] [place] [address] PCP - General Internal Medicine 04/08/15 01/08/19 Vanda Guerrero MD [address] [place] [address] [place] [address] PCP - Assigned PCP 07/24/16 06/15/18 Noreen Flores APRN TELECOMMUNICATIONS NETWORK ENGINEER [address] [place] [address] [place] [address] PCP - Assigned PCP 06/16/18 08/13/18 Noreen Flores APRN TELECOMMUNICATIONS NETWORK ENGINEER [address] [place] [address] [place] [address] PCP - General Nurse Practitioner 01/09/19 12/12/21 Sudha Greene NP [address] [address] PCP - General 11/01/22 Noreen Flores APRN TELECOMMUNICATIONS NETWORK ENGINEER [address] [place] [address] [place] [address] Assigned PCP 06/16/18 05/26/22 Kalyan Galvan Personal Advocate & Liaison (PAL) 08/08/19 04/26/21 Lashae Trevino, [facility] [place] [phone] Pharmacist Pharmacist 10/14/19 12/01/20 Eduardo Sharma MD [address] [place] [address] Assigned Sleep Provider 04/02/2005/07 [place] [address] [place] [address] Assigned Musculoskeletal Provider 04/02/20 08/24/20 Marcelo Artis PA-C [address] [place] [address] Assigned Musculoskeletal Provider 08/25/20 08/20/21 Rodrigo Man PA-C [address] [place] [address] [place] [id number] Assigned Surgical Provider 08/25/20 11/27/20 Noreen Flores APRN TELECOMMUNICATIONS NETWORK ENGINEER [address] [facility] [place] [address] Assigned PCP 08/05/22 03/16/23 Agatha Null DPM, Podiatry/Foot and Ankle Surgery [address] [place] [address] Assigned Musculoskeletal Provider 11/04/22 Clinic - [facility] [place] 3[address] [facility] [place] [id number] Assigned PCP 07/05/23 documented as of this encounter
--- OUTSIDE RECORDS SUMMARY | 2023-10-01 10:26 | XMS_ITS | Encounter Summary ---
Author Name Unknown Organization [facility] Address [address] [place] [address] Care Team Providers Care Prepleater Name Role Phone Noreen Flores APRN AGRISCIENCE TECHNOLOGY INSTRUCTOR Unavailable Noreen Flores APRN AGRISCIENCE TECHNOLOGY INSTRUCTOR Primary Car e Provider Kalyan Galvan Unavailable Unavailable Lashae Trevino [facility] Unavailable Eduardo Sharma MD Unavailable Rios Monteiro MD Unavailable Marcelo Artis PA-C Unavailable Rodrigo Man PA-C Unavailable [phone] Noreen Flores APRN, CNP Unavailable Sudha Greene NP Primary Care Provider Agatha Null DPM, Podiatry /Foot and Ankle Surgery Unavailable Clinic - [facility] Unavailable Encounter Details Date Type Department Care Team (Late st Contact Info) Description 01/22/2019 Myra Moya [facility] Rehabilitation Services [place] [address] [place], [place] [id number] Marcelo Trejo, PT [address] [place] [address] Social History Tobacco Use Types [...] documented as of this encounter Care Teams Prepleater Relationship Specialty Start Date End Date Noreen Flores APRN AGRISCIENCE TECHNOLOGY INSTRUCTOR [address] [place] [address] [place] [address] PCP - General Nurse Practitioner 01/09/19 12/12/21 Sudha Greene, MAURICIO [address] [address] PCP - General 11/01/22 Noreen Flores APRN AGRISCIENCE TECHNOLOGY INSTRUCTOR [address] [place] [address] [place] [address] Assigned PCP 06/16/18 05/26/22 Kalyan Galvan Personal Advocate & Liaison (PAL) 08/08/19 04/26/21 Lashae Trevino, [facility] [address] Pharmacist Pharmacist 10/14/19 12/01/20 Eduardo Sharma MD [address] [place] [address] [place] [address] Assigned Sleep Provider 04/02/2005/07 [place] [address] [facility] [address] [place] [address] Assigned Musculoskeletal Provider 04/02/20 08/24/20 Marcelo Artis PA-C [address] [facility] [address] [place] [address] Assigned Musculoskeletal Provider 08/25/20 08/20/21 Rodrigo Man PA-C [address] [place] [address] [place] [address] Assigned Surgical Provider 08/25/20 11/27/20 Noreen Flores APRN CNP [address] [place] [address] [place] [address] Assigned PCP 08/05/22 03/16/23 Agatha Null DPM, Podiatry/Foot and Ankle Surgery [address] [place] [address] [address] [place] [address] Assigned Musculoskeletal Provider 11/04/22 [facility] [address] [place] [address] [place] [address] Assigned PCP 07/05/23 documented as of this encounter
--- OUTSIDE RECORDS SUMMARY | 2023-10-01 10:26 | XMS_ITS | Encounter Summary ---
Author Name Unknown Organization [place] Address [address] [place] [address] Care Team Providers Care Knowledge Engineer Name Role Phone Vanda Guerrero MD Primary Care Provider [phone] Vanda Guerrero MD Unavailable [phone] Jeana-Noreen Miles APRN DUST BRUSH ASSEMBLER Unavailable [facility]-Noreen Miles APRN DUST BRUSH ASSEMBLER Unavailable [facility]-JdNoreen castro APRN DUST BRUSH ASSEMBLER Primary Car e Provider Kalyan Galvan Unavailable Unavailable Lashae Trevino [facility] Unavailable [phone] Eduardo Sharma MD Unavailable Rios Monteiro MD Unavailable Marcelo Artis PA-C Unavailable Rodrigo Man PA-C Unavailable Jeana-JdNoreen castro APRN DUST BRUSH ASSEMBLER Unavailable Sudha Greene NP Primary Care Provider Agatha Null DPM, Podiatry /Foot and Ankle Surgery Unavailable [facility] Unavailable Reason for Visit * Reason Comments Medication Refill simvastatin (ZOCOR) 20 MG tablet Encounter Details Date Type Department Care Team (Late st Contact Info) Description 02/15/2017 Refill [facility] [address] [place] [address] Vanda Guerrero MD [address] [facility] [place] [address] Medication Refill (simvastatin (ZOCOR) 20 MG tablet) [...] [facility] or [facility] prescribing provider: 09/25/2016 Lab Results Component Value [...] 178 <200 mg/dL 02/17/2017 2:14 PM CDT [facility] Triglycerides 121 <150 mg/dL 02/17/2017 2:14 PM CDT [facility] Comment:Fasting specimen HDL Cholesterol 43(L) >49 mg/dL 7 2:14 PM CDT [facility] LDL Cholesterol Calculated 111(H) <100 mg/dL 02/17/2017 2:14 PM CDT [facility] Comment: Above desirable: ??100-129 mg/dl Borderline High: ??130-159 mg/dL High: ? 160-189 mg/dL Very high: ? >189 mg/dl Non HDL Cholesterol 135(H) <130 mg/dL 02/17/2017 2:14 PM CDT [facility] Comment: Above Desirable: ??130-159 mg/dl Borderline high: ??160-189 mg/dl High: ? 190-219 mg/dl Very high: ? >219 mg/dl Blood specimen (specimen) 02/17/2017 9:13 AM CDT 02/17/2017 9:18 AM CDT Vanda Guerrero MD LAB - BLOOD ORDER ILDEFONSO [facility] [address] [place] [address] documented in this encounter Visit Diagnoses Diagnosis [...] documented as of this encounter Care Teams Knowledge Engineer Relationship Specialty Start Date End Date Vanda Guerrero MD [address] [place] [address] [place] [address] PCP - General Internal Medicine 04/08/15 01/08/19 Vanda Guerrero MD [address] [place] [address] [place] [address] PCP - Assigned PCP 07/24/16 06/15/18 Noreen Flores APRN DUST BRUSH ASSEMBLER [address] [place] [address] [place] [address] PCP - Assigned PCP 06/16/18 08/13/18 Noreen Flores APRN DUST BRUSH ASSEMBLER [address] [place] [address] [place] [address] PCP - General Nurse Practitioner 01/09/19 12/12/21 Sudha Greene NP [address] [address] PCP - General 11/01/22 Noreen Flores APRN DUST BRUSH ASSEMBLER [address] [place] [address] [place] [address] Assigned PCP 06/16/18 05/26/22 Kalyan Galvan Personal Advocate & Liaison (PAL) 08/08/19 04/26/21 [facility] [place] [address] Pharmacist Pharmacist 10/14/19 12/01/20 Eduardo Sharma MD [address] [facility] [address] [place] 9[address] Assigned Sleep Provider 04/02/2005/07 Rios Monteiro MD [address] [place] [address] [address] [place] [id number] Assigned Musculoskeletal Provider 04/02/20 08/24/20 Marcelo Artis PA-C [address] [place] [address] [address] [place] [address] Assigned Musculoskeletal Provider 08/25/20 08/20/21 Rodrigo Man PA-C [address] [facility] [address] [place] [id number] Assigned Surgical Provider 08/25/20 11/27/20 Noreen Flores APRN DUST BRUSH ASSEMBLER [address] [place] [address] [place] [address] Assigned PCP 08/05/22 03/16/23 Agatha Null DPM, Podiatry/Foot and Ankle Surgery [address] [place] [address] [address] [place] [address] Assigned Musculoskeletal Provider 11/04/22 [facility] [place] [place] [address]95 [facility] [place] [address] Assigned PCP 07/05/23 documented as of this encounter
--- OUTSIDE RECORDS SUMMARY | 2023-10-01 10:26 | XMS_ITS | Encounter Summary ---
Author Name Unknown Organization [place] Address [address] [place] [address] Care Team Providers Care Acute Care Occupational Therapist Name Role Phone Vanda Guerrero MD Primary Care Provider [phone] Vanda Guerrero MD Unavailable [phone] Jeana-Noreen Miles APRN HEAD ANIMAL KEEPER Unavailable [facility]-Noreen Miles APRN HEAD ANIMAL KEEPER Unavailable [facility]-JdNoreen castro APRN HEAD ANIMAL KEEPER Primary Car e Provider Kalyan Galvan Unavailable Unavailable [facility] Trevino [facility] Unavailable Eduardo Sharma MD Unavailable Rios Monteiro MD Unavailable Marcelo Artis PA-C Unavailable [phone] Rodrigo Man PA-C Unavailable Jeana-Noreen Miles APRN HEAD ANIMAL KEEPER Unavailable Sudha Greene NP Primary Care Provider [phone] Agatha Null DPM, Podiatry /Foot and Ankle Surgery Unavailable [facility] Unavailable Reason for Visit * Reason Comments Medication Refill zolpidem (AMBIEN) 5 MG tablet Encounter Details Date Type Department Care Team (Late st Contact Info) Description 02/20/[address] [facility] [place] [address] [place] [address] Vanda Guerrero MD [address] [facility] [place] [address] Medication Refill (zolpidem (AMBIEN) 5 MG tablet) [...] station out basket or on MA/DIRECTOR OF VALUATION/RN desk * Telephone Encounter - Gayathri Mcallisetr RN - 02/21/2018 3:33 PM CDT SUPPORT SERVICES SPECIALIST checked: patient refilled: 06/12, 07/07 and 10/04 [...] of this encounter Care Teams Acute Care Occupational Therapist Relationship Specialty Start Date End Date Vanda Guerrero MD [address] [place] [address] [place] [address] PCP - General Internal Medicine 04/08/15 01/08/19 Vanda Guerrero MD [address] [place] [address] [place] [address] PCP - Assigned PCP 07/24/16 06/15/18 Noreen Flroes APRN HEAD ANIMAL KEEPER [address] [place] [address] [place] [address] PCP - Assigned PCP 06/16/18 08/13/18 Noreen Flores APRN HEAD ANIMAL KEEPER [address] [facility] [place] [address] PCP - General Nurse Practitioner 01/09/19 12/12/21 Sudha Greene NP [address] [address] PCP - General 11/01/22 Noreen Flores, SEAN HEAD ANIMAL KEEPER [address] [place] [address] [place] [address] Assigned PCP 06/16/18 05/26/22 Kalyan Galvan Personal Advocate & Liaison (PAL) 08/08/19 04/26/21 [facility] [address] [place] [address] [place] [address] Pharmacist Pharmacist 10/14/19 12/01/20 Eduardo Sharma MD [address] [place] [address] Assigned Sleep Provider 04/02/2005/07 [place] [address] [facility] [address] [place] [address] Assigned Musculoskeletal Provider 04/02/20 08/24/20 Marcelo Artis PA-C [address] [facility] [address] [place], [place] 490917 Assigned Musculoskeletal Provider 08/25/20 08/20/21 Rodrigo Man PA-C [address] [place] [address] [place] [id number] Assigned Surgical Provider 08/25/20 11/27/20 Noreen Flores APRN HEAD ANIMAL KEEPER [address] [facility] [place] [address] Assigned PCP 08/05/22 03/16/23 Agatha Null DPM, Podiatry/Foot and Ankle Surgery [address] [place] [address] Assigned Musculoskeletal Provider 11/04/22 [facility] [address] [facility] [place] [id number] Assigned PCP 07/05/23 documented as of this encounter
--- OUTSIDE RECORDS SUMMARY | 2023-10-01 10:27 | XMS_ITS | Encounter Summary ---
Author Name Unknown Organization [facility] Address [address] [place] [address] Care Team Providers Care Cashier General Name Role Phone Vanda Guerrero MD Primary Care Provider [phone] Vnada Guerrero MD Unavailable [phone] Jeana-Noreen Miles APRN CEMENT BREAKER Unavailable [facility]-Noreen Miles APRN CEMENT BREAKER Unavailable [facility]-JdNoreen castro APRN CEMENT BREAKER Primary Car e Provider Kalyan Galvan Unavailable Unavailable Lashae Trevino [facility] Unavailable Eduardo Sharma MD Unavailable Rios Monteiro MD Unavailable [phone] Marcelo Artis-C Unavailable [phone] Rodrigo Man-C Unavailable [phone] Jeana-Noreen Miles APRN CEMENT BREAKER Unavailable Sudha Greene NP Primary Care Provider Agatha Null DPM, Podiatry /Foot and Ankle Surgery Unavailable [facility] Unavailable Reason for Referral * Consultation - Closed Specialty Diagnoses / Procedures Referred By Rylie t Referred To Contact Diagnoses Cervicalgia History of lumbar fusion History of fusion of cervical spine Vanda Guerrero MD [address] [facility] [place] [address] [facility] [address] [facility] [address] [place] [address] Referral ID Status Reason Start Date Expiration Date Visits Re quested Visits Authorized [id number] Closed 04/27/2015 04/26/2016 1 1 Comments [facility] is referring you to the Orthopedic Hand Tapper Services at [facility]. The Hand Tapper Rotor Winder will assist you in the coordination of your Orthopedic and Musculoskeletal Care as prescribed by your physician. The Hand Tapper Rotor Winder will call you within 24 hours to help schedule your appointment, or you may contact the Hand Tapper Rotor Winder at: [facility] ~ [facility] ~ Type of Referral : Spine: Cervical / Thoracic: Medical Race Relations Adviser Timeframe requested: Routine Coverage of these services is subject to the terms and limitations of your health insurance plan. Please call member services at your health plan with any benefit or coverage questions. If X-rays, CT or MRI's have been performed, please contact the facility where they were done to arrange for picked edge sewing machine operator, prior to your scheduled appointment. Please bring this referral request to your appointment and present it to your specialist. R ENERGY INSTALLATION MANAGER Reason for Visit * Reason Onset Date Comments Leg Pain 04/27/2015 Encounter Details Date Type Department Care Team (Late st Contact Info) Description 04/27/2015 MyC Medical Advice [facility] [address] [facility] [place] [address] Vanda Guerrero MD [address] [facility] [place] [address] Leg Pain Social History [...] Kallie Mishra RN - 04/27/2015 5:20 PM SOLAR ENERGY INSTALLATION MANAGER Entered referral, sent [employer] message to update the patient. R ENERGY INSTALLATION MANAGER * Telephone Encounter - Vanda Guerrero MD - 04/27/2015 3:16 PM SOLAR ENERGY INSTALLATION MANAGER Recommend FSOC evaluation in the next 1-2 weeks. R ENERGY INSTALLATION MANAGER * Telephone Encounter - Kallie Mishra RN - 04/27/2015 3:14 PM SOLAR ENERGY INSTALLATION MANAGER Would you recommend re-evaluation due to new symptoms? R ENERGY INSTALLATION MANAGER documented in this encounter Plan of [...] documented as of this encounter Care Teams Cashier General Relationship Specialty Start Date End Date Vanda Guerrero MD [address] [facility] [place] [address] PCP - General Internal Medicine 04/08/15 01/08/19 Vanda Guerrero MD [address] [facility] [place] [address] PCP - Assigned PCP 07/24/16 06/15/18 Noreen Flores APRN CEMENT BREAKER [address] [place] [address] [place] [address] PCP - Assigned PCP 06/16/18 08/13/18 Noreen Flores APRN CEMENT BREAKER [address] [place] [address] [place] [address] PCP - General Nurse Practitioner 01/09/19 12/12/21 Sudha Greene NP [address] [address] PCP - General 11/01/22 Noreen Flores APRN CEMENT BREAKER [address] [place] [address] [place] [address] Assigned PCP 06/16/18 05/26/22 Kalyan Galvan Personal Advocate & Liaison (PAL) 08/08/19 04/26/21 Lashae Trevino, [facility] [address] [facility] [place] [address] Pharmacist Pharmacist 10/14/19 12/01/20 Eduardo Sharma MD [address] [facility] [address] [place], [place] 28[address] Assigned Sleep Provider 04/02/2005/07 [place] [address] [facility] [address] [place] [address] Assigned Musculoskeletal Provider 04/02/20 08/24/20 Marcelo Artis PA-C 11767 [facility] [address] [place] [address] Assigned Musculoskeletal Provider 08/25/20 08/20/21 Rodrigo Man PA-C [address] [facility] [address] [place] [address] Assigned Surgical Provider 08/25/20 11/27/20 Noreen Flores APRN CEMENT BREAKER [address] [place] [address] [place] [phone] Assigned PCP 08/05/22 03/16/23 Agatha Null DPM, Podiatry/Foot and Ankle Surgery [address] [facility] 300 [place] [address] Assigned Musculoskeletal Provider 11/04/22 [facility] [place] [address] [place] [address] [place] [phone] Assigned PCP 07/05/23 documented as of this encounter
--- OUTSIDE RECORDS SUMMARY | 2023-10-01 10:27 | XMS_ITS | Encounter Summary ---
Author Name Unknown Organization [place] Address [address] [place] [address] Care Team Providers Care Ophthalmic Lens Inspector Name Role Phone Selma Good APRN INFANTRY WEAPONS OFFICER Primary Care Pro vider Vanda Guerrero MD Primary Care Provider [phone] Vanda Guerrero MD Unavailable [phone] Jeana-JdNoreen castro APRN, CNP Unavailable Jeana-JdNoreen castro APRN, CNP Unavailable Jeana-JdNoreen castro APRN INFANTRY WEAPONS OFFICER Primary Car e Provider Kalyan Galvan Unavailable Unavailable Lashae Trevino [facility] Unavailable [phone] Eduardo Sharma MD Unavailable Rios Monteiro MD Unavailable [phone] Marcelo Artis-Aleyda Unavailable [phone] Rodrigo Man-C Unavailable [phone] Jeana-JdNoreen castro APRN INFANTRY WEAPONS OFFICER Unavailable Sudha Greene NP Primary Care Provider Agatha NullM, Podiatry /Foot and Ankle Surgery Unavailable [facility] Unavailable Reason for Visit * Reason Onset Date Comments Medication Question 05/29/2012 wellbutrin Encounter Details Date Type Department Care Team (Late st Contact Info) Description 05/29/2012 MyC Medical Advice [address] [place] [phone] Selma Good, GENERAL I FARMWORKER INFANTRY WEAPONS OFFICER [address] [place] [address] [place] [address] Medication Question (wellbutrin) Social History Tobacco Use [...] documented as of this encounter Care Teams Ophthalmic Lens Inspector Relationship Specialty Start Date End Date Selma Good, GENERAL I FARMWORKER INFANTRY WEAPONS OFFICER [address] [place] [address] [place] [address] PCP - General 04/09/08 04/07/15 Vanda Guerrero MD [address] [place] [address] [place] [address] PCP - General Internal Medicine 04/08/15 01/08/19 Vanda Guerrero MD [address] [place] [address] [place] [address] PCP - Assigned PCP 07/24/16 06/15/18 Noreen Flores APRN INFANTRY WEAPONS OFFICER [address] [place] [address] [place] [address] PCP - Assigned PCP 06/16/18 08/13/18 Noreen Flores APRN INFANTRY WEAPONS OFFICER [address] [place] [address] [place] [address] PCP - General Nurse Practitioner 01/09/19 12/12/21 Sudha Greene NP [address] [address] PCP - General 11/01/22 Noreen Flores APRN INFANTRY WEAPONS OFFICER [address] [place] [address] [place] [address] Assigned PCP 06/16/18 05/26/22 Kalyan Galvan Personal Advocate & Liaison (PAL) 08/08/19 04/26/21 [facility] [address] [place] [address] [place] [id number] Pharmacist Pharmacist 10/14/19 12/01/20 Eduardo Sharma MD [address] [facility] 103 [place] [id number] Assigned Sleep Provider 04/02/2005/07 [place] [address] [facility] 300 [place] 955427 Assigned Musculoskeletal Provider 04/02/20 08/24/20 Marcelo Artis PA-C [address] [facility] 300 [place] [address] Assigned Musculoskeletal Provider 08/25/20 08/20/21 Rodrigo Man PA-C [address] [facility] 450 [place] [address] Assigned Surgical Provider 08/25/20 11/27/20 Noreen Flores APRN CNP [address] [place] [address] [place] [address] Assigned PCP 08/05/22 03/16/23 Agatha Null DPM, Podiatry/Foot and Ankle Surgery [address] [facility] 300 [place] [address] Assigned Musculoskeletal Provider 11/04/22 [facility] 3[address] [facility] [place] [phone] Assigned PCP 07/05/23 documented as of this encounter
--- OUTSIDE RECORDS SUMMARY | 2023-10-01 10:27 | XMS_ITS | Encounter Summary ---
Author Name Unknown Organization [place] Address [address] [place] [address] Care Team Providers Care Plating Stripper Name Role Phone Vanda Guerrero MD Primary Care Provider [phone] Vanda Guerrero MD Unavailable [phone] Jeana-Noreen Miles APRN GLOBAL MANAGER [facility] GLOBAL MANAGER Unavailable [facility]-JdNoreen castro APRN GLOBAL MANAGER Primary Car e Provider Kalyan Galvan Unavailable Unavailable Lashae Trevino [facility] Unavailable [phone] Eduardo Sharma MD Unavailable Rios Monteiro MD Unavailable [phone] Marcelo Artis PA-C Unavailable [phone] Rodrigo Man PA-C Unavailable Jeana-Noreen Miles APRN GLOBAL MANAGER Unavailable Sudha Greene NP Primary Care Provider Agatha Null DPM, Podiatry /Foot and Ankle Surgery Unavailable [facility] Unavailable Reason for Visit * Reason Onset Date Comments Patient/info Update 05/01/2016 foot prob Encounter Details Date Type Department Care Team (Late st Contact Info) Description 05/01/2016 MyC Medical Advice [facility] [address] [place] [address] Agatha Null DPM, Podiatry/Foot and Ankle Surgery [address] [place] [address] Patient/info Update (foot prob) Social History Tobacco [...] as of this encounter Care Teams Plating Stripper Relationship Specialty Start Date End Date Vanda Guerrero MD [address] [place] [address] [place] [address] PCP - General Internal Medicine 04/08/15 01/08/19 Vanda Guerrero MD [address] [place] [address] [place] [address] PCP - Assigned PCP 07/24/16 06/15/18 Noreen Flores APRN GLOBAL MANAGER [address] [place] [address] [place] [address] PCP - Assigned PCP 06/16/18 08/13/18 Noreen Flores APRN GLOBAL MANAGER [address] [place] [address] [place] [address] PCP - General Nurse Practitioner 01/09/19 12/12/21 Sudha Greene, [place] [address] [address] PCP - General 11/01/22 Noreen Flores APRN GLOBAL MANAGER [address] [place] [address] [place] [address] Assigned PCP 06/16/18 05/26/22 Kalyan Galvan Personal Advocate & Liaison (PAL) 08/08/19 04/26/21 [facility] [address] [place] [address] [place] [address] Pharmacist Pharmacist 10/14/19 12/01/20 Eduardo Sharma MD [address] [address] Assigned Sleep Provider 04/02/2005/07 Rios Monteiro MD [address] [place] [address] Assigned Musculoskeletal Provider 04/02/20 08/24/20 Marcelo Artis PA-C [address] [address] Assigned Musculoskeletal Provider 08/25/20 08/20/21 Rodrigo Man PA-C [address] [place] [address] Assigned Surgical Provider 08/25/20 11/27/20 Noreen Flores APRN GLOBAL MANAGER 3305 [facility] [place] [address] Assigned PCP 08/05/22 03/16/23 Agatha Null DPM, Podiatry/Foot and Ankle Surgery [address] [place] 279417 Assigned Musculoskeletal Provider 11/04/22 Clinic - [facility] [place] 3305 [facility] [place] [id number] Assigned PCP 07/05/23 documented as of this encounter
--- OUTSIDE RECORDS SUMMARY | 2023-10-01 10:27 | XMS_ITS | Encounter Summary ---
Author Name Unknown Organization [place] Address [address] [place] [address] Care Team Providers Care Rn Admissions Name Role Phone Vanda Guerrero MD Primary Care Provider [phone] Vanda Guerrero MD Unavailable [phone] Jeana-Noreen Miles APRN EXTRUSION DIE REPAIR MANAGER Unavailable [facility] APRN EXTRUSION DIE REPAIR MANAGER Unavailable [facility]Jd[facility]en castro APRN EXTRUSION DIE REPAIR MANAGER Primary Car e Provider Kalyan Galvan Unavailable Unavailable Lashae Trevino [facility] Unavailable [phone] Eduardo Sharma MD Unavailable Rios Monteiro MD Unavailable [phone] Marcelo Artis PA-C Unavailable [phone] Rodrigo ManC Unavailable Jeana-JdNoreen castro APRN EXTRUSION DIE REPAIR MANAGER Unavailable Sudha Greene NP Primary Care Provider Agatha Null DPM, Podiatry /Foot and Ankle Surgery Unavailable [facility] Unavailable Reason for Visit * Reason Onset Date Comments Musculoskeletal Problem 06/13/2016 Travel a dvice Encounter Details Date Type Department Care Team (Latest Contact Info) Description 06/13/2016 MyC Medical Advice [facility] [address] [place] [address] Agatha Null DPM, Podiatry/Foot and Ankle Surgery [address] [place] [address] Musculoskeletal Problem (Travel advice) Social History Tobacco [...] to provider for review. Iain Barone RN MIXER documented in this encounter Plan of [...] Total Score: 11 05/02/ 016 7:09 AM FRIT MIXER documented as of this encounter Care Teams Rn Admissions Relationship Specialty Start Date End Date Vanda Guerrero MD [address] [facility] [place] [address] PCP - General Internal Medicine 04/08/15 01/08/19 Vanda Guerrero MD [address] [facility] [place] [address] PCP - Assigned PCP 07/24/16 06/15/18 Noreen Flores APRN EXTRUSION DIE REPAIR MANAGER [address] [place] [address] [place] [address] PCP - Assigned PCP 06/16/18 08/13/18 Noreen Flores APRN EXTRUSION DIE REPAIR MANAGER [address] [place] [address] [place] [address] PCP - General Nurse Practitioner 01/09/19 12/12/21 Sudha Greene, MAURICIO [address] [address] PCP - General 11/01/22 Noreen Flores APRN EXTRUSION DIE REPAIR MANAGER [address] [place] [address] [place] [address] Assigned PCP 06/16/18 05/26/22 Kalyan Galvan Personal Advocate & Liaison (PAL) 08/08/19 04/26/21 Lashae Trevino, [facility] [address] [facility] [place] [address] Pharmacist Pharmacist 10/14/19 12/01/20 Eduardo Sharma MD [address] [facility] 103 [place] [address] Assigned Sleep Provider 04/02/2005/07 [place] [address] [facility] 300 [place] [address] Assigned Musculoskeletal Provider 04/02/20 08/24/20 ChandraMarcelo PA-C [address]15[address] [facility] 300 [place] [address] Assigned Musculoskeletal Provider 08/25/20 08/20/21 Rodrigo Man PA-C [address] [facility] [address] [place] [address] Assigned Surgical Provider 08/25/20 11/27/20 Noreen Flores APRN EXTRUSION DIE REPAIR MANAGER [address] [facility] [place] [id number] Assigned PCP 08/05/22 03/16/23 Agatha Null DPM, Podiatry/Foot and Ankle Surgery [address] [facility] [address] [place] [address] Assigned Musculoskeletal Provider 11/04/22 [facility] [address] [facility] [place] [id number] Assigned PCP 07/05/23 documented as of this encounter
--- OUTSIDE RECORDS SUMMARY | 2023-10-01 10:27 | XMS_ITS | Encounter Summary ---
Author Name Unknown Organization [place] Address [address] [place] [address] Care Team Providers Care Trustee Of Estate Name Role Phone Selma Good APRN CIGARETTE VENDOR Primary Care Pro vider Vanda Guerrero MD Primary Care Provider [phone] Vanda Guerrero MD Unavailable [phone] Jeana-JdNoreen castro APRN, CNP Unavailable Jeana-JdNoreen castro APRN, CNP Unavailable Jeana-JdNoreen castro APRN CIGARETTE VENDOR Primary Car e Provider Kalyan Galvan Unavailable Unavailable Lashae Trevino [facility] Unavailable [phone] Eduardo Sharma MD Unavailable Rios Monteiro MD Unavailable [phone] Marcelo Artis PA-C Unavailable [phone] Rodrigo Man PA-C Unavailable [phone] Jeana-JdNoreen castro APRN CIGARETTE VENDOR Unavailable Sudha Greene NP Primary Care Provider Agatha NullM, Podiatry /Foot and Ankle Surgery Unavailable [facility] Unavailable Encounter Details Date Type Department Care Team (Late st Contact Info) Description 09/24/2014 MyC Medical Advice [address] [place] [phone] Shante Joya, RN [...] documented as of this encounter Care Teams Trustee Of Estate Relationship Specialty Start Date End Date Selma Good APRN CIGARETTE VENDOR [address] [facility] [place] [address] PCP - General 04/09/08 04/07/15 Vanda Guerrero MD [address] [facility] [place] [address] PCP - General Internal Medicine 04/08/15 01/08/19 Vanda Guerrero MD [facility]5 [facility] [place] [address] PCP - Assigned PCP 07/24/16 06/15/18 Noreen Flores APRN CIGARETTE VENDOR [address] [facility] [place] [address] PCP - Assigned PCP 06/16/18 08/13/18 Noreen Flores APRN CIGARETTE VENDOR [address] [place] [address] [place] [address] PCP - General Nurse Practitioner 01/09/19 12/12/21 Sudha Greene NP [address] [address] PCP - General 11/01/22 Noreen Flores APRN CIGARETTE VENDOR [address] [place] [address] [place] [address] Assigned PCP 06/16/18 05/26/22 Kalyan Galvan Personal Advocate & Liaison (PAL) 08/08/19 04/26/21 Lashae Trevino [facility] [address] [place] [address] [place] [address] Pharmacist Pharmacist 10/14/19 12/01/20 Eduardo Sharma MD [address] [address] Assigned Sleep Provider 04/02/2005/07 [place] [id number] [place] [address] Assigned Musculoskeletal Provider 04/02/20 08/24/20 Marcelo Artis PA-C [address] [address] Assigned Musculoskeletal Provider 08/25/20 08/20/21 Rodrigo Man PA-C [address] [place] [address] [place] [address] Assigned Surgical Provider 08/25/20 11/27/20 Noreen Flores APRN CIGARETTE VENDOR 3305 [facility] [place] [address] Assigned PCP 08/05/22 03/16/23 Agatha Null DPM, Podiatry/Foot and Ankle Surgery [address] [place] [address] [place] [address] Assigned Musculoskeletal Provider 11/04/22 [facility] - [facility] [place] [address] [facility] [place] [address] Assigned PCP 07/05/23 documented as of this encounter
--- OUTSIDE RECORDS SUMMARY | 2023-10-01 10:27 | XMS_ITS | Encounter Summary ---
Author Name Unknown Organization [place] Address [address] [place] [address] Care Team Providers Care Mental Hygiene Consultant Name Role Phone Selma Good APRN CLIENT DELIVERY MANAGER Primary Care Pro vider Vanda Guerrero MD Primary Care Provider [phone] Vanda Guerrero MD Unavailable [phone] Jeana-JdNoreen castro APRN, CNP Unavailable Jeana-JdNoreen castro APRN, CNP Unavailable Jeana-JdNoreen castro APRN CLIENT DELIVERY MANAGER Primary Car e Provider Kalyan Galvan Unavailable Unavailable Lashae Trevino [facility] Unavailable [phone] Eduardo Sharma MD Unavailable Rios Monteiro MD Unavailable [phone] Marcelo Artis PA-C Unavailable [phone] Rodrigo Man PA-C Unavailable [phone] Jeana-JdNoreen castro APRN CLIENT DELIVERY MANAGER Unavailable Sudha Greene NP Primary Care Provider Agatha NullM, Podiatry /Foot and Ankle Surgery Unavailable [facility] Unavailable Encounter Details Date Type Department Care Team (Late st Contact Info) Description 07/12/2012 [facility] [phone] Selma Good APRN CLIENT DELIVERY MANAGER [address] [place] [address] [place] [address] Social History Tobacco Use Types Packs/Day Years [...] documented as of this encounter Care Teams Mental Hygiene Consultant Relationship Specialty Start Date End Date Selma Good APRN CLIENT DELIVERY MANAGER [address] [place] [address] [place] [address] PCP - General 04/09/08 04/07/15 Vanda Guerrero MD [address] [place] [address] [place] [address] PCP - General Internal Medicine 04/08/15 01/08/19 Vanda Guerrero MD [address] [place] [address] [place] [address] PCP - Assigned PCP 07/24/16 06/15/18 Noreen Flores APRN CLIENT DELIVERY MANAGER [address] [place] [address] [place] [address] PCP - Assigned PCP 06/16/18 08/13/18 Noreen Flores APRN CLIENT DELIVERY MANAGER [address] [place] [address] [place] [address] PCP - General Nurse Practitioner 01/09/19 12/12/21 Sudha Greene, MAURICIO [address] [address] PCP - General 11/01/22 Noreen Flores APRN CLIENT DELIVERY MANAGER [address] [place] [address] [place] [address] Assigned PCP 06/16/18 05/26/22 Kalyan Galvan Personal Advocate & Liaison (PAL) 08/08/19 04/26/21 [facility] [address] [place] [address] [place] [id number] Pharmacist Pharmacist 10/14/19 12/01/20 Eduardo Sharma MD [address] [facility] 103 [place] [address] Assigned Sleep Provider 04/02/2005/07 [place] [address] [place] [address] [place] [address] Assigned Musculoskeletal Provider 04/02/20 08/24/20 Marcelo Artis, PA-C [address] [place] [address] [place] [address] Assigned Musculoskeletal Provider 08/25/20 08/20/21 Rodrigo Man PA-C [address] [place] [address] [place] [address] Assigned Surgical Provider 08/25/20 11/27/20 Noreen Flores APRN CLIENT DELIVERY MANAGER 3305 [facility] [place] [address] Assigned PCP 08/05/22 03/16/23 Agtaha Null DPM, Podiatry/Foot and Ankle Surgery [address] [place] [address] [place] [address] Assigned Musculoskeletal Provider 11/04/22 [facility] [place] 3305 [facility] [place] [address] Assigned PCP 07/05/23 documented as of this encounter
--- OUTSIDE RECORDS SUMMARY | 2023-10-01 10:27 | XMS_ITS | Encounter Summary ---
Author Name Unknown Organization [place] Address [address] [place] [address] Care Team Providers Care Radio Personality Name Role Phone Vanda Guerrero MD Primary Care Provider [phone] Vanda Guerrero MD Unavailable [phone] Jeana-Noreen Miles APRN NEUROLOGY TECHNICIAN Unavailable [facility] APRN NEUROLOGY TECHNICIAN Unavailable [facility]Jd[facility]en castro APRN NEUROLOGY TECHNICIAN Primary Car e Provider Kalyan Galvan Unavailable Unavailable Lashae Trevino [facility] Unavailable Eduardo Sharma MD Unavailable Rios Monteiro MD Unavailable Marcelo Artis PA-C Unavailable [phone] Rodrigo ManC Unavailable [phone] Jeana-JdNoreen castro APRN NEUROLOGY TECHNICIAN Unavailable Sudha Greene NP Primary Care Provider Agatha Null DPM, Podiatry /Foot and Ankle Surgery Unavailable [facility] Unavailable Reason for Visit * Reason Onset Date Comments Clarification 05/19/2016 Encounter Details Date Type Department Care Team (Late st Contact Info) Description 05/19/2016 MyC Medical Advice [facility] [address] [place] [address] Agatha Null, DPM, Podiatry/Foot and Ankle Surgery [address] [place] [address] Clarification Social History Tobacco Use Types Packs/Day [...] Total Score: 11 05/02/ 016 7:09 AM HAND TILE MAKER documented as of this encounter Care Teams Radio Personality Relationship Specialty Start Date End Date Vanda Guerrero MD [address] [place] [address] [place] [address] PCP - General Internal Medicine 04/08/15 01/08/19 Vanda Guerrero MD [address] [place] [address] [place] [address] PCP - Assigned PCP 07/24/16 06/15/18 Noreen Flores APRN CNP [address] [place] [address] [place] [address] PCP - Assigned PCP 06/16/18 08/13/18 Noreen Flores APRN NEUROLOGY TECHNICIAN [address] [facility] [place] [address] PCP - General Nurse Practitioner 01/09/19 12/12/21 Sudha Greene NP [address] [address] PCP - General 11/01/22 Noreen Flores APRN NEUROLOGY TECHNICIAN [address] [place] [address] [place] [address] Assigned PCP 06/16/18 05/26/22 Kalyan Galvan Personal Advocate & Liaison (PAL) 08/08/19 04/26/21 [facility] [address] [place] [address] [place] [address] Pharmacist Pharmacist 10/14/19 12/01/20 Eduardo Sharma MD [address] [place] [address] [place] [address] Assigned Sleep Provider 04/02/2005/07 [place] [address] [facility] [place] [address] [place] [address] Assigned Musculoskeletal Provider 04/02/20 08/24/20 Marcelo Artis PA-C [address] [facility] [place] [address] [place] [address] Assigned Musculoskeletal Provider 08/25/20 08/20/21 Rodrigo Man PA-C [address] [place] [address] [place] [address] Assigned Surgical Provider 08/25/20 11/27/20 Noreen Flores APRN NEUROLOGY TECHNICIAN [address] [facility] [place] [address] Assigned PCP 08/05/22 03/16/23 Agatha Null DPM, Podiatry/Foot and Ankle Surgery [address] [place] [address] [place] [address] Assigned Musculoskeletal Provider 11/04/22 [facility] [place] [facility] [address] [facility] [facility] [address] [place] [address] Assigned PCP 07/05/23 documented as of this encounter
--- OUTSIDE RECORDS SUMMARY | 2023-10-01 10:27 | XMS_ITS | Encounter Summary ---
Author Name Unknown Organization [place] Address [address] [place] [address] Care Team Providers Care Conveyor Technician Name Role Phone Selma Good APRN DOMESTIC VIOLENCE ADVOCATE Primary Care Pro vider Vanda Guerrero MD Primary Care Provider [phone] Vanda Guerrero MD Unavailable [phone] Jeana-JdNoreen castro APRN, CNP Unavailable Jeana-JdNoreen castro APRN, CNP Unavailable Jeana-JdNoreen castro APRN DOMESTIC VIOLENCE ADVOCATE Primary Car e Provider Kalyan Galvan Unavailable Unavailable Lashae Trevino [facility] Unavailable [phone] Eduardo Sharma MD Unavailable Rios Monteiro MD Unavailable [phone] Marcelo Artis-Aleyda Unavailable [phone] Rodrigo Man-C Unavailable [phone] Jeana-JdNoreen castro APRN DOMESTIC VIOLENCE ADVOCATE Unavailable Sudha Greene NP Primary Care Provider Agatha NullM, Podiatry /Foot and Ankle Surgery Unavailable [facility] Unavailable Reason for Visit * Reason Onset Date Comments Medication Question 10/06/2014 lisinopril Refill Request 10/06/2014 OT lancets and s trips Encounter Details Date Type Department Care Team (Late st Contact Info) Description 10/06/2014 MyC Medical Advice [facility] [place] [address] [facility] [place] [phone] Selma Good, GEAR NICKER [address] [place] [address] Medication Question (lisinopril); Refill R... Social History [...] PM CDT Appointment today with Kenyon GUEVARA, WASH RACK OPERATOR: 5. Hypertension goal BP (blood pressure) < [...] documented as of this encounter Care Teams Conveyor Technician Relationship Specialty Start Date End Date Selma Good APRN DOMESTIC VIOLENCE ADVOCATE [facility]5 [facility] [place] [address] PCP - General 04/09/08 04/07/15 Vanda Guerrero MD [address] [place] [address] [place] [address] PCP - General Internal Medicine 04/08/15 01/08/19 Vanda Guerrero MD [address] [place] [address] [place] [address] PCP - Assigned PCP 07/24/16 06/15/18 Noreen Flores APRN DOMESTIC VIOLENCE ADVOCATE [address] [place] [address] [place] [address] PCP - Assigned PCP 06/16/18 08/13/18 Noreen Flores APRN DOMESTIC VIOLENCE ADVOCATE [address] [place] [address] [place] [address] PCP - General Nurse Practitioner 01/09/19 12/12/21 Sudha Greene NP [address] [address] PCP - General 11/01/22 Noreen Flores APRN DOMESTIC VIOLENCE ADVOCATE [address] [facility] [place] [address] Assigned PCP 06/16/18 05/26/22 Kalyan Galvan Personal Advocate & Liaison (PAL) 08/08/19 04/26/21 [facility] [address] [place] [address] [place] [address] Pharmacist Pharmacist 10/14/19 12/01/20 Eduardo Sharma MD [address] [place] [address] [place] [address] Assigned Sleep Provider 04/02/2005/07 [place] [address] [place] [address] [place] [address] Assigned Musculoskeletal Provider 04/02/20 08/24/20 Marcelo Artis PA-C [address] [address] [place] [address] [place] [address] Assigned Musculoskeletal Provider 08/25/20 08/20/21 Rodrigo Man PA-C [address] [place] [address] [place] [address] Assigned Surgical Provider 08/25/20 11/27/20 Noreen Flores APRN DOMESTIC VIOLENCE ADVOCATE [facility] [place] [address] Assigned PCP 08/05/22 03/16/23 Agatha Null DPM, Podiatry/Foot and Ankle Surgery [address] [place] [address] Assigned Musculoskeletal Provider 11/04/22 [facility] [place] [address] [place] [address] Assigned PCP 07/05/23 documented as of this encounter
--- OUTSIDE RECORDS SUMMARY | 2023-10-01 10:27 | XMS_ITS | Encounter Summary ---
Author Name Unknown Organization [place] Address [address] [place] [address] Care Team Providers Care Terminal Makeup Operator Name Role Phone Vanda Guerrero MD Primary Care Provider [phone] Vanda Guerrero MD Unavailable [phone] Jeana-Noreen Miles APRN INGOT BUGGY OPERATOR Unavailable Jeana-Noreen Miles APRN INGOT BUGGY OPERATOR Unavailable Jeana-JdNoreen castro APRN INGOT BUGGY OPERATOR Primary Car e Provider Kalyan Galvan Unavailable Unavailable Lashae Trevino [facility] Unavailable [phone] Eduardo Sharma MD Unavailable Rios Monteiro MD Unavailable [phone] Macrelo Artis PA-C Unavailable Rodrigo Man PA-C Unavailable Jeana-Noreen Miles APRN INGOT BUGGY OPERATOR Unavailable Sudha Greene NP Primary Care Provider Agatha Null DPM, Podiatry /Foot and Ankle Surgery Unavailable [facility] Unavailable Encounter Details Date Type Department Care Team (Late st Contact Info) Description 02/11/[address] [place] [phone] Vanda Guerrero MD [address] [place] [address] [place] [address] Social History Tobacco Use Types Packs/Day Years [...] documented as of this encounter Care Teams Terminal Makeup Operator Relationship Specialty Start Date End Date Vanda Guerrero MD [address] [place] [address] [place] [address] PCP - General Internal Medicine 04/08/15 01/08/19 Vanda Guerrero MD [address] [place] [address] [place] [address] PCP - Assigned PCP 07/24/16 06/15/18 Noreen Flores APRN INGOT BUGGY OPERATOR [address] [place] [address] [place] [address] PCP - Assigned PCP 06/16/18 08/13/18 Noreen Flores APRN INGOT BUGGY OPERATOR [address] [place] [address] [place] [address] PCP - General Nurse Practitioner 01/09/19 12/12/21 Sudha Greene NP [facility] [address] [place] [address] PCP - General 11/01/22 Noreen Flores APRN INGOT BUGGY OPERATOR [address] [place] [address] [place] [address] Assigned PCP 06/16/18 05/26/22 Kalyan Galvan Personal Advocate & Liaison (PAL) 08/08/19 04/26/21 Lashae Trevino, [facility] [address] [place] [address] [place] [address] Pharmacist Pharmacist 10/14/19 12/01/20 Eduardo Sharma MD [address] [place] [address] [place] [address] Assigned Sleep Provider 04/02/2005/07 [place] [address] [facility] [place] [address] [place] [address] Assigned Musculoskeletal Provider 04/02/20 08/24/20 Marcelo Arits PA-C [address] [place] [address] [place] [address] Assigned Musculoskeletal Provider 08/25/20 08/20/21 Rodrigo Man PA-C [address] [place] [address] [place] [address] Assigned Surgical Provider 08/25/20 11/27/20 Noreen Flores APRN INGOT BUGGY OPERATOR [address] [facility] [place] [address] Assigned PCP 08/05/22 03/16/23 Agatha Null DPM, Podiatry/Foot and Ankle Surgery [address] [place] [address] Assigned Musculoskeletal Provider 11/04/22 [facility] [place] [facility] 3[address] [facility] [place] [id number] Assigned PCP 07/05/23 documented as of this encounter
--- OUTSIDE RECORDS SUMMARY | 2023-10-01 10:27 | XMS_ITS | Encounter Summary ---
Author Name Unknown Organization [place] Address [address] [place] [address] Care Team Providers Care Litharge Supervisor Name Role Phone Selma Good APRN PATTERN LEASE INSPECTOR Primary Care Pro vider Vanda Guerrero MD Primary Care Provider [phone] Vanda Guerrero MD Unavailable [phone] Jeana-JdNoreen castro APRN, CNP Unavailable Jeana-JdNoreen castro APRN, CNP Unavailable Jeana-JdNoreen castro APRN PATTERN LEASE INSPECTOR Primary Car e Provider Kalyan Galvan Unavailable Unavailable Lashae Trevino [facility] Unavailable [phone] Eduardo Sharma MD Unavailable Rios Monteiro MD Unavailable [phone] Marcelo Artis-Aleyda Unavailable [phone] Rodrigo Man-C Unavailable [phone] Jeana-JdNoreen castro APRN PATTERN LEASE INSPECTOR Unavailable Sudha Greene NP Primary Care Provider Agatha NullM, Podiatry /Foot and Ankle Surgery Unavailable [facility] Unavailable Reason for Visit * Reason Onset Date Comments Medication Problem 06/22/2014 amitriptline side effects Encounter Details Date Type Department Care Team (Late st Contact Info) Description 06/22/2014 [facility] [address] [place] [address] [place] [address] Selma Good, HAND PASTER PATTERN LEASE INSPECTOR [address] [facility] [place] [address] Medication Problem (amitriptline side effe... Social History [...] documented as of this encounter Care Teams Litharge Supervisor Relationship Specialty Start Date End Date Selma Good, SEAN PATTERN LEASE INSPECTOR [address] [place] [address] [place] [address] PCP - General 04/09/08 04/07/15 Vanda Guerrero MD [address] [place] [address] [place] [address] PCP - General Internal Medicine 04/08/15 01/08/19 Vanda Guerrero MD [address] [place] [address] [place] [address] PCP - Assigned PCP 07/24/16 06/15/18 Noreen Flores APRN PATTERN LEASE INSPECTOR [address] [facility] [place] [address] PCP - Assigned PCP 06/16/18 08/13/18 Noreen Flores APRN PATTERN LEASE INSPECTOR [address] [facility] [place] [address] PCP - General Nurse Practitioner 01/09/19 12/12/21 Sudha Greene, MAURICIO [address] [address] PCP - General 11/01/22 Noreen Flores APRN PATTERN LEASE INSPECTOR [address] [place] [address] [place] [address] Assigned PCP 06/16/18 05/26/22 Kalyan Galvan Personal Advocate & Liaison (PAL) 08/08/19 04/26/21 Lashae Trevino, [facility] [address] [facility] [place] [address] Pharmacist Pharmacist 10/14/19 12/01/20 Eduardo Sharma MD [address] [facility] 103 [place] [address] Assigned Sleep Provider 04/02/2005/07 [place] [address] [facility] 300 [place] [address] Assigned Musculoskeletal Provider 04/02/20 08/24/20 Marcelo Artis PA-C 35234 [facility] [address] [place] [address] Assigned Musculoskeletal Provider 08/25/20 08/20/21 Rodrigo Man PA-C [address] [facility] [address] [place] [address] Assigned Surgical Provider 08/25/20 11/27/20 Noreen Flores APRN PATTERN LEASE INSPECTOR [address] [facility] [place] [id number] Assigned PCP 08/05/22 03/16/23 Agatha Null DPM, Podiatry/Foot and Ankle Surgery [address] [facility] [address] [place] [address] Assigned Musculoskeletal Provider 11/04/22 Clinic - Nita Pringle [facility] 3[address] [facility] [place] [id number] Assigned PCP 07/05/23 documented as of this encounter
--- OUTSIDE RECORDS SUMMARY | 2023-10-01 10:27 | XMS_ITS | Encounter Summary ---
Author Name Unknown Organization [place] Address [address] [place] [address] Care Team Providers Care Cardiovascular Operating Room Nurse Name Role Phone Selma Good APRN SOUND MIXER Primary Care Pro vider Vanda Guerrero MD Primary Care Provider [phone] Vanda Guerrero MD Unavailable [phone] Jeana-JdNoreen castro APRN, CNP Unavailable Jeana-JdNoreen castro APRN, CNP Unavailable Jeana-JdNoreen castro APRN SOUND MIXER Primary Car e Provider Kalyan Galvan Unavailable Unavailable Lashae Trevino [facility] Unavailable [phone] Eduardo Sharma MD Unavailable Rios Monteiro MD Unavailable [phone] Marcelo Artis PA-C Unavailable [phone] Rodrigo Man PA-C Unavailable [phone] Jeana-JdNoreen castro APRN SOUND MIXER Unavailable Sudha Greene NP Primary Care Provider Agatha NullM, Podiatry /Foot and Ankle Surgery Unavailable [facility] Unavailable Encounter Details Date Type Department Care Team (Late st Contact Info) Description 08/17/2014 MyC Medical Advice [facility] [address] [place] [id number] Day Greene APRN SOUND MIXER [address] [place] [address] [address] [place] [address] Social History Tobacco Use Types Packs/Day Years [...] documented as of this encounter Care Teams Cardiovascular Operating Room Nurse Relationship Specialty Start Date End Date Selma Good APRN SOUND MIXER [address] [place] [address] [place] [address] PCP - General 04/09/08 04/07/15 Vanda Guerrero MD [address] [place] [address] [place] [address] PCP - General Internal Medicine 04/08/15 01/08/19 Vanda Guerrero MD [address] [place] [address] [place] [address] PCP - Assigned PCP 07/24/16 06/15/18 Noreen Flores APRN SOUND MIXER [address] [place] [address] [place] [address] PCP - Assigned PCP 06/16/18 08/13/18 Noreen Flores APRN SOUND MIXER [address] [place] [address] [place] [address] PCP - General Nurse Practitioner 01/09/19 12/12/21 Sudha Greene, MAURICIO [address] [address] PCP - General 11/01/22 Noreen Flores APRN SOUND MIXER [address] [place] [address] [place] [address] Assigned PCP 06/16/18 05/26/22 Kalyan Galvan Personal Advocate & Liaison (PAL) 08/08/19 04/26/21 Lashae Trevino [facility] [address] [place] [address] [place] [phone] Pharmacist Pharmacist 10/14/19 12/01/20 Eduardo Sharma MD [address] [place] [address] Assigned Sleep Provider 04/02/2005/07 [place] [address] [facility] 300 [place], [place] 19216[address] Assigned Musculoskeletal Provider 04/02/20 08/24/20 Marcelo Artis, PA-C 48383 [facility] [address] [place], [place] [address] Assigned Musculoskeletal Provider 08/25/20 08/20/21 Rodrigo Man PA-C [address] [place] [address] Assigned Surgical Provider 08/25/20 11/27/20 Noreen Flores APRN SOUND MIXER 3305 [facility] [place] [address] Assigned PCP 08/05/22 03/16/23 Agatha Null DPM, Podiatry/Foot and Ankle Surgery [address] [place] [address] [place] [address] Assigned Musculoskeletal Provider 11/04/22 Clinic - [facility] [address] [facility] [place] [address] Assigned PCP 07/05/23 documented as of this encounter
--- OUTSIDE RECORDS SUMMARY | 2023-10-01 10:27 | XMS_ITS | Encounter Summary ---
Author Name Unknown Organization [place] Address [address] [place] [address] Care Team Providers Care Farm Laborer Name Role Phone Vanda Guerrero MD Primary Care Provider [phone] Vanda Guerrero MD Unavailable [phone] Jeana-Noreen Miles APRN NET FINISHER Unavailable [facility] APRN NET FINISHER Unavailable [facility]-JdNoreen castro APRN NET FINISHER Primary Car e Provider Kalyan Galvan Unavailable Unavailable Lashae Trevino [facility] Unavailable [phone] Eduardo Sharma MD Unavailable Rios Monteiro MD Unavailable Marcelo Artis PA-C Unavailable [phone] Rodrigo ManC Unavailable Jeana-Noreen Miles APRN NET FINISHER Unavailable Sudha Greene NP Primary Care Provider Agatha uNll DPM, Podiatry /Foot and Ankle Surgery Unavailable [facility] Unavailable Reason for Visit * Reason Onset Date Comments Refill Request 08/30/2016 Metformin 500mg tab Encounter Details Date Type Department Care Team (Late st Contact Info) Description 08/30/2016 Refill [facility] [address] [place] [address] Vanda Guerrero MD [address] [facility] [place] [address] Refill Request (Metformin 500mg tab) Social History [...] Last Office Visit with G, P or [facility] prescribing provider: 06/01/16 BP Readings from [...] Total Score: 11 05/02/ 016 7:09 AM INDUSTRIAL RELATIONS DIRECTOR documented as of this encounter Care Teams Farm Laborer Relationship Specialty Start Date End Date Vanda Guerrero MD [address] [place] [address] [place] [address] PCP - General Internal Medicine 04/08/15 01/08/19 Vanda Guerrero MD [address] [place] [address] [place] [address] PCP - Assigned PCP 07/24/16 06/15/18 Noreen Flores, SEAN NET FINISHER [address] [place] [address] [place] [address] PCP - Assigned PCP 06/16/18 08/13/18 Noreen Flores APRN NET FINISHER [address] [place] [address] [place] [address] PCP - General Nurse Practitioner 01/09/19 12/12/21 Sudha Greene, MAURICIO [address] [address] PCP - General 11/01/22 Noreen Flores APRN NET FINISHER [address] [place] [address] [place] [address] Assigned PCP 06/16/18 05/26/22 Kalyan Galvan Personal Advocate & Liaison (PAL) 08/08/19 04/26/21 Lashae Trevino [facility] [address] [phone] Pharmacist Pharmacist 10/14/19 12/01/20 Eduardo Sharma MD 6363 [place] [address] Assigned Sleep Provider 04/02/2005/07 [place] [address] 692277 Assigned Musculoskeletal Provider 04/02/20 08/24/20 Marcelo Artis PA-C [address] [address] Assigned Musculoskeletal Provider 08/25/20 08/20/21 Rodrigo Man PA-C [address] [address] Assigned Surgical Provider 08/25/20 11/27/20 Noreen Flroes APRN NET FINISHER [address] [place] [address] [place] [address] Assigned PCP 08/05/22 03/16/23 Agatha Null DPM, Podiatry/Foot and Ankle Surgery [address] [place] [address] [facility] 300 [place] [address] Assigned Musculoskeletal Provider 11/04/22 Clinic - Nita Pringle [facility] [address] [place] [address] [place] [address] Assigned PCP 07/05/23 documented as of this encounter
--- OUTSIDE RECORDS SUMMARY | 2023-10-01 10:27 | XMS_ITS | Encounter Summary ---
Author Name Unknown Organization [place] Address [address] [place] [address] Care Team Providers Care Third Cook Name Role Phone Selma Good APRN BULK TANK CAR UNLOADER Primary Care Pro vider Vanda Guerrero MD Primary Care Provider [phone] Vanda Guerrero MD Unavailable [phone] Jeana-JdNoreen castro APRN, CNP Unavailable Jeana-JdNoreen castro APRN, CNP Unavailable Jeana-JdNoreen castro APRN BULK TANK CAR UNLOADER Primary Car e Provider Kalyan Galvan Unavailable Unavailable Lashae Trevino [facility] Unavailable [phone] Eduardo Sharma MD Unavailable Rios Monteiro MD Unavailable [phone] Marcelo Artis PA-C Unavailable [phone] Rodrigo Man PA-C Unavailable [phone] Jeana-JdNoreen castro APRN BULK TANK CAR UNLOADER Unavailable Sudha Greene NP Primary Care Provider Agatha NullM, Podiatry /Foot and Ankle Surgery Unavailable [facility] Unavailable Encounter Details Date Type Department Care Team (Late st Contact Info) Description 12/05/2012 [facility] [place] [address] [place] [address] Alejo Casas Social History [...] documented as of this encounter Care Teams Third Cook Relationship Specialty Start Date End Date Selma Good APRN BULK TANK CAR UNLOADER [address] [facility] [place] [address] PCP - General 04/09/08 04/07/15 Vanda Guerrero MD [address] [place] [address] [place] [address] PCP - General Internal Medicine 04/08/15 01/08/19 Vanda Guerrero MD [address] [place] [address] [place] [address] PCP - Assigned PCP 07/24/16 06/15/18 Noreen Flores APRN BULK TANK CAR UNLOADER [facility] [place] [address] PCP - Assigned PCP 06/16/18 08/13/18 Noreen Flores APRN BULK TANK CAR UNLOADER [address] [place] [address] [place] [address] PCP - General Nurse Practitioner 01/09/19 12/12/21 Sudha Greene NP [address] [address] PCP - General 11/01/22 Noreen Flores APRN BULK TANK CAR UNLOADER [address] [place] [address] [place] [address] Assigned PCP 06/16/18 05/26/22 Kalyan Galvan Personal Advocate & Liaison (PAL) 08/08/19 04/26/21 [facility] [address] [place] [address] [place] [address] Pharmacist Pharmacist 10/14/19 12/01/20 Eduardo Sharma MD [address] [address] Assigned Sleep Provider 04/02/2005/07 [place] [address] [place] [address] 300 [place] [address] Assigned Musculoskeletal Provider 04/02/20 08/24/20 Marcelo Artis PA-C [address] [facility] 300 [place] [address] Assigned Musculoskeletal Provider 08/25/20 08/20/21 Rodrigo Man PA-C [address] [place] [address] Assigned Surgical Provider 08/25/20 11/27/20 Noreen Flores APRN BULK TANK CAR UNLOADER [address] [facility] [place] [address] Assigned PCP 08/05/22 03/16/23 Agatha Null DPM, Podiatry/Foot and Ankle Surgery [address] [place] [address] [place] [id number] Assigned Musculoskeletal Provider 11/04/22 Clinic - N[facility] Pring[facility] 3305 [facility] [place] [address] Assigned PCP 07/05/23 documented as of this encounter
--- OUTSIDE RECORDS SUMMARY | 2023-10-01 10:27 | XMS_ITS | Encounter Summary ---
Author Name Unknown Organization [place] Address [address] [place] [address] Care Team Providers Care Boiler Tenders Supervisor Name Role Phone Vanda Guerrero MD Primary Care Provider [phone] Vanda Guerrero MD Unavailable [phone] Jeana-Noreen Miles APRN DISTRICT COURT ADMINISTRATOR Unavailable [facility] Miles APRN DISTRICT COURT ADMINISTRATOR Unavailable [facility]-Jd[facility]en castro APRN DISTRICT COURT ADMINISTRATOR Primary Car e Provider Kalyan Galvan Unavailable Unavailable Lashae Trevino [facility] Unavailable Eduardo Sharma MD Unavailable Rios Monteiro MD Unavailable [phone] Marcelo Artis PA-C Unavailable Rodrigo ManC Unavailable [phone] Jeana-JdNoreen castro APRN DISTRICT COURT ADMINISTRATOR Unavailable Sudha Greene NP Primary Care Provider Agatha Null DPM, Podiatry /Foot and Ankle Surgery Unavailable [facility] Unavailable Reason for Visit * Reason Onset Date Comments Appointment 11/30/2016 reminder Encounter Details Date Type Department Care Team (Late st Contact Info) Description 11/30/2016 MyC Medical Advice [facility] [place] [address] [place] [phone] Kallie Celaya, RN Appointment (reminder) Social History [...] documented as of this encounter Care Teams Boiler Tenders Supervisor Relationship Specialty Start Date End Date Vanda Guerrero MD [address] [place] [address] [place] [address] PCP - General Internal Medicine 04/08/15 01/08/19 Vanda Guerrero MD [address] [place] [address] [place] [address] PCP - Assigned PCP 07/24/16 06/15/[address]en Flores [address]N [address] COURT ADMINISTRATOR [address] [place] [address] [place] [address] PCP - Assigned PCP 06/16/18 08/13/18 [address]oreen Flores [address]N [address] COURT ADMINISTRATOR [address] [place] [address] [place] [address] PCP - General Nurse Practitioner 01/09/19 12/12/21 Sudha Greene, MAURICIO [address] [place] [address] PCP - General 11/01/[address] ADMINISTRATOR 3305 [facility] [place] [address] Assigned PCP 06/16/18 05/26/22 Kalyan Galvan Personal Advocate & Liaison (PAL) 08/08/19 04/26/21 Lashae Trevino, [facility] [place] [address] Pharmacist Pharmacist 10/14/19 12/01/20 Eduardo Sharma MD [address] [place] [address] [place] [address] Assigned Sleep Provider 04/02/2005/07 [place] [address] [place] [address] [place] [address] Assigned Musculoskeletal Provider 04/02/20 08/24/20 Marcelo Artis PA-C [address] [place] [address] [place] [address] Assigned Musculoskeletal Provider 08/25/20 08/20/21 Rodrigo Man PA-C [address] [place] [address] [place] [id number] Assigned Surgical Provider 08/25/20 11/27/[address] ADMINISTRATOR 3[address] [facility] [place] [address] Assigned PCP 08/05/22 03/16/23 Agatha Null DPM, Podiatry/Foot and Ankle Surgery [address] [place] [address] Assigned Musculoskeletal Provider 11/04/22 Clinic - Nita Pringle [facility] 3[address] [facility] [place] [id number] Assigned PCP 07/05/23 documented as of this encounter
--- OUTSIDE RECORDS SUMMARY | 2023-10-01 10:27 | XMS_ITS | Encounter Summary ---
Author Name Unknown Organization [place] Address [address] [place] [address] Care Team Providers Care Hoop Maker Machine Name Role Phone Selma Good APRN FIRST ASSIST Primary Care Pro vider Vanda Guerrero MD Primary Care Provider [phone] Vanda Guerrero MD Unavailable [phone] Jeana-JdNoreen castro APRN, CNP Unavailable Jeana-JdNoreen castro APRN, CNP Unavailable Jeana-JdNoreen castro APRN FIRST ASSIST Primary Car e Provider Kalyan Galvan Unavailable Unavailable Lashae Trevino [facility] Unavailable [phone] Eduardo Sharma MD Unavailable Rios Monteiro MD Unavailable [phone] Marcelo Artis-Aleyda Unavailable [phone] Rodrigo Man-C Unavailable [phone] Jeana-JdNoreen castro APRN FIRST ASSIST Unavailable Sudha Greene NP Primary Care Provider Agatha NullM, Podiatry /Foot and Ankle Surgery Unavailable [facility] Unavailable Reason for Visit * Reason Onset Date Comments Foot Problems 03/19/2014 numb Encounter Details Date Type Department Care Team (Late st Contact Info) Description 03/19/2014 [facility] [address] [place] [address] [place] [address] Selma Good APRN FIRST ASSIST [address] [facility] [place] [address] Foot Problems (numb) Social History Tobacco Use [...] documented as of this encounter Care Teams Hoop Maker Machine Relationship Specialty Start Date End Date Selma Good APRN FIRST ASSIST [address] [place] [address] [place] [address] PCP - General 04/09/08 04/07/15 Vanda Guerrero MD [address] [place] [address] [place] [address] PCP - General Internal Medicine 04/08/15 01/08/19 Vanda Guerrero MD [address] [place] [address] [place] [address] PCP - Assigned PCP 07/24/16 06/15/18 Noreen Flores APRN FIRST ASSIST [address] [place] [address] [place] [address] PCP - Assigned PCP 06/16/18 08/13/18 Noreen Flores APRN FIRST ASSIST [address] [place] [address] [place] [address] PCP - General Nurse Practitioner 01/09/19 12/12/21 Sudha Greene NP [address] [address] PCP - General 11/01/22 Noreen Flores APRN FIRST ASSIST [address] [place] [address] [place] [address] Assigned PCP 06/16/18 05/26/22 Kalyan Galvan Personal Advocate & Liaison (PAL) 08/08/19 04/26/21 [facility] [address] [place] [address] [place] [address] Pharmacist Pharmacist 10/14/19 12/01/20 Eduardo Sharma MD [address] [place] [address] Assigned Sleep Provider 04/02/2005/07 Rios Monteiro MD [address] [place] [address] 300 [place], [place] [address] Assigned Musculoskeletal Provider 04/02/20 08/24/20 Marcelo Artis, PA-C [address] [place] [address] 300 [place] [address] Assigned Musculoskeletal Provider 08/25/20 08/20/21 Rodrigo Man PA-C [address] [facility] [address] [place] [address] Assigned Surgical Provider 08/25/20 11/27/20 Noreen Flores APRN FIRST ASSIST 3305 [facility] [place] [address] Assigned PCP 08/05/22 03/16/23 Agatha Null DPM, Podiatry/Foot and Ankle Surgery [address] [place] [address] [place] [address] Assigned Musculoskeletal Provider 11/04/22 Clinic - Nita Pringle [facility] 3305 [facility] [place] [id number] Assigned PCP 07/05/23 documented as of this encounter
--- OUTSIDE RECORDS SUMMARY | 2023-10-01 10:27 | XMS_ITS | Encounter Summary ---
Author Name Unknown Organization [place] Address [address] [place] [address] Care Team Providers Care Casing Blower Name Role Phone Selma Good APRN DISC PAD PLATE FILLER Primary Care Pro vider Vanda Guerrero MD Primary Care Provider [phone] Vanda Guerrero MD Unavailable [phone] Jeana-JdNoreen castro APRN, CNP Unavailable Jeana-JdNoreen castro APRN, CNP Unavailable Jeana-JdNoreen castro APRN DISC PAD PLATE FILLER Primary Car e Provider Kalyan Galvan Unavailable Unavailable Lashae Trevino [facility] Unavailable [phone] Eduardo Sharma MD Unavailable Rios Monteiro MD Unavailable [phone] Marcelo Artis-Aleyda Unavailable [phone] Rodrigo Man-C Unavailable [phone] Jeana-JdNoreen castro APRN DISC PAD PLATE FILLER Unavailable Sudha Greene NP Primary Care Provider Agatha NullM, Podiatry /Foot and Ankle Surgery Unavailable [facility] [place] [facility] Unavailable Reason for Visit * Reason Onset Date Comments Medication Dosage Adjustment 08/18/2013 dec gavine Metformin Encounter Details Date Type Department Care Team (Late st Contact Info) Description 08/18/2013 [facility] [address] [place] [address] [place] [phone] Selma Good APRN DISC PAD PLATE FILLER [address] [facility] [place] [address] Medication Dosage Adjustment (decrease Met... Social History [...] RN - 08/18/2013 2:08 PM CDT See [employer] message below. I updated the medication list [...] documented as of this encounter Care Teams Casing Blower Relationship Specialty Start Date End Date Selma Good APRN DISC PAD PLATE FILLER [facility] [place] [address] PCP - General 04/09/08 04/07/15 Vanda Guerrero MD [address] [place] [address] [place] [address] PCP - General Internal Medicine 04/08/15 01/08/19 Vanda Guerrero MD [address] [place] [address] [place] [address] PCP - Assigned PCP 07/24/16 06/15/18 Noreen Flores APRN DISC PAD PLATE FILLER [address] [place] [address] [place] [address] PCP - Assigned PCP 06/16/18 08/13/18 Noreen Flores APRN DISC PAD PLATE FILLER [address] [place] [address] [place] [address] PCP - General Nurse Practitioner 01/09/19 12/12/21 Sudha Greene, MAURICIO [address] [address] PCP - General 11/01/22 Noreen Flores, SEAN DISC PAD PLATE FILLER [address] [place] [address] [place] [address] Assigned PCP 06/16/18 05/26/22 Kalyan Galvan Personal Advocate & Liaison (PAL) 08/08/19 04/26/21 Lashae Trevino [facility] [address] [place] [address] Pharmacist Pharmacist 10/14/19 12/01/20 Eduardo Sharma MD [address] [place] [address] [place] [address] Assigned Sleep Provider 04/02/2005/07 Rios Monteiro MD [address] [place] [address] Assigned Musculoskeletal Provider 04/02/20 08/24/20 Marcelo Artis PA-C [address] [place] [address] Assigned Musculoskeletal Provider 08/25/20 08/20/21 Rodrigo Man PA-C [address] [facility] [address] [place] [address] Assigned Surgical Provider 08/25/20 11/27/20 Noreen Flores APRN DISC PAD PLATE FILLER [address] [place] [address] [place] [address] Assigned PCP 08/05/22 03/16/23 Agatha Null DPM, Podiatry/Foot and Ankle Surgery [address] [place] [address] 300 [place] [address] Assigned Musculoskeletal Provider 11/04/22 Clinic - [facility] [address] [place] [address] [place] [address] Assigned PCP 07/05/23 documented as of this encounter
--- OUTSIDE RECORDS SUMMARY | 2023-10-01 10:27 | XMS_ITS | Encounter Summary ---
Author Name Unknown Organization [place] Address [address] [place] [address] Care Team Providers Care Inspector Firearms Name Role Phone Vanda Guerrero MD Primary Care Provider [phone] Vanda Guerrero MD Unavailable [phone] Jeana-Noreen Miles APRN OPHTHALMIC DISPENSER Unavailable [facility] APRN OPHTHALMIC DISPENSER Unavailable [facility]Jd[facility]oreen castro APRN OPHTHALMIC DISPENSER Primary Car e Provider Kalyan Galvan Unavailable Unavailable Lashae Trevino [facility] Unavailable Eduardo Sharma MD Unavailable Rios Monteiro MD Unavailable Marcelo Artis PA-C Unavailable [phone] Rodrigo ManC Unavailable Jeana-JdNoreen castro APRN OPHTHALMIC DISPENSER Unavailable Sudha Greene NP Primary Care Provider Agatha Null DPM, Podiatry /Foot and Ankle Surgery Unavailable [facility] [place] [facility] Unavailable Reason for Visit * Reason Onset Date Comments Derm Problem 01/20/2016 Encounter Details Date Type Department Care Team (Late st Contact Info) Description 01/20/2016 [facility] [address] [place] [address] [place] [id number] Vanda Guerrero MD [address] [place] [address] [place] [address] Derm Problem Social History Tobacco Use Types [...] as of this encounter Care Teams Inspector Firearms Relationship Specialty Start Date End Date Vanda Guerrero MD [address] [place] [address] [place] [address] PCP - General Internal Medicine 04/08/15 01/08/19 Vanda Guerrero MD [address] [place] [address] [place] [address] PCP - Assigned PCP 07/24/16 06/15/18 Noreen Flores APRN OPHTHALMIC DISPENSER [address] [place] [address] [place] [address] PCP - Assigned PCP 06/16/18 08/13/18 Noreen Flores APRN OPHTHALMIC DISPENSER [facility] [place] [address] PCP - General Nurse Practitioner 01/09/19 12/12/21 Sudha Greene NP [address] [address] PCP - General 11/01/22 Noreen Flores APRN OPHTHALMIC DISPENSER 3305 [facility] [place] [address] Assigned PCP 06/16/18 05/26/22 Kalyan Galvan Personal Advocate & Liaison (PAL) 08/08/19 04/26/21 aLshae Trevino, [facility] [address] [place] [address] [place] [address] Pharmacist Pharmacist 10/14/19 12/01/20 Eduardo Sharma MD [address] [place] [address] [place] [id number] Assigned Sleep Provider 04/02/2005/07 [place] [address] [facility] [address] [place] [address] Assigned Musculoskeletal Provider 04/02/20 08/24/20 Marcelo Artis PA-C [address] [facility] [place] [address] [place] [address] Assigned Musculoskeletal Provider 08/25/20 08/20/21 Rodrigo Man PA-C [address] [place] [address] [place] [address] Assigned Surgical Provider 08/25/20 11/27/20 Noreen Flores APRN OPHTHALMIC DISPENSER [address]305 [facility] [place] [address] Assigned PCP 08/05/22 03/16/23 Agatha Null DPM, Podiatry/Foot and Ankle Surgery [address] [place] [address] Assigned Musculoskeletal Provider 11/04/22 [facility] [place] 3305 [facility] [place] [address] Assigned PCP 07/05/23 documented as of this encounter
--- OUTSIDE RECORDS SUMMARY | 2023-10-01 10:27 | XMS_ITS | Encounter Summary ---
Author Name Unknown Organization [place] Address [address] [place] [address] Care Team Providers Care Chief Radiology Name Role Phone Selma Good APRN NIGHT AUDITOR Primary Care Pro vider Vanda Guerrero MD Primary Care Provider [phone] Vanda Guerrero MD Unavailable [phone] Jeana-JdNoreen castro APRN, CNP Unavailable Jeana-JdNoreen castro APRN, CNP Unavailable Jeana-JdNoreen castro APRN NIGHT AUDITOR Primary Car e Provider Kalyan Galvan Unavailable Unavailable Lashae Trevino [facility] Unavailable [phone] Eduardo Sharma MD Unavailable Rios Monteiro MD Unavailable [phone] Marcelo Artis PA-C Unavailable [phone] Rodrigo Man PA-C Unavailable [phone] Jeana-JdNoreen castro APRN NIGHT AUDITOR Unavailable Sudha Greene NP Primary Care Provider Agatha NullM, Podiatry /Foot and Ankle Surgery Unavailable [facility] [place] [facility] Unavailable Encounter Details Date Type Department Care Team (Late st Contact Info) Description 05/21/2013 [facility] [place] [place] Medical Advice [address] [place] [address] Alejo Casas Social History [...] as of this encounter Care Teams Chief Radiology Relationship Specialty Start Date End Date Selma Good APRN NIGHT AUDITOR [address]305 [facility] [place] [address] PCP - General 04/09/08 04/07/15 Vanda Guerrero MD [address] [place] [address] [place] [address] PCP - General Internal Medicine 04/08/15 01/08/19 Vanda Guerrero MD [address] [place] [address] [place] [address] PCP - Assigned PCP 07/24/16 06/15/18 Noreen Flores APRN NIGHT AUDITOR [facility] [place] [address] PCP - Assigned PCP 06/16/18 08/13/18 Noreen Flores APRN NIGHT AUDITOR [address] [place] [address] [place] [address] PCP - General Nurse Practitioner 01/09/19 12/12/21 Sudha Greene NP [address] [address] PCP - General 11/01/22 Noreen Flores APRN NIGHT AUDITOR [address] [place] [address] [place] [address] Assigned PCP 06/16/18 05/26/22 Kalyan Galvan Personal Advocate & Liaison (PAL) 08/08/19 04/26/21 [facility] [address] [place] [address] [place] [address] Pharmacist Pharmacist 10/14/19 12/01/20 Eduardo Sharma MD [address] [address] Assigned Sleep Provider 04/02/2005/07 [place] [id number] [place] [address] 300 [place] [address] Assigned Musculoskeletal Provider 04/02/20 08/24/20 Marcelo Artis PA-C [address] [facility] [address] [place] [address] Assigned Musculoskeletal Provider 08/25/20 08/20/21 Rodrigo Man PA-C [address] [place] [address] Assigned Surgical Provider 08/25/20 11/27/20 Noreen Flores APRN NIGHT AUDITOR 3305 [facility] [place] [address] Assigned PCP 08/05/22 03/16/23 Agatha Null DPM, Podiatry/Foot and Ankle Surgery [address] [place] [address] [place] 817307 Assigned Musculoskeletal Provider 11/04/22 Clinic - [facility] 3305 [facility] [place] [address] Assigned PCP 07/05/23 documented as of this encounter
--- OUTSIDE RECORDS SUMMARY | 2023-10-01 10:28 | XMS_ITS | Encounter Summary ---
Author Name Unknown Organization [place] Address [address] [place] [address] Care Team Providers Care Manager Business Information Name Role Phone Selma Good APRN ROPING MACHINE TENDER Primary Care Pro vider Vanda Guerrero MD Primary Care Provider [phone] Vanda Guerrero MD Unavailable [phone] Jeana-JdNoreen castro APRN, CNP Unavailable Jeana-JdNoreen castro APRN, CNP Unavailable Jeana-JdNoreen castro APRN ROPING MACHINE TENDER Primary Car e Provider Kalyan Galvan Unavailable Unavailable Lashae Trevino [facility] Unavailable [phone] Eduardo Sharma MD Unavailable Rios Monteiro MD Unavailable [phone] Marcelo Artis-Aleyda Unavailable [phone] Rodrigo Man-C Unavailable [phone] Jeana-JdNoreen castro APRN ROPING MACHINE TENDER Unavailable Sudha Greene NP Primary Care Provider Agatha NullM, Podiatry /Foot and Ankle Surgery Unavailable [facility] [place] [facility] Unavailable Reason for Visit * Reason Onset Date Comments Vaginal Problem 05/24/2011 itchy -worse wit h cream Encounter Details Date Type Department Care Team (Late st Contact Info) Description 05/24/2011 MyC Medical Advice [address] [place] [address] Selma Good, SEISMIC PROSPECTING OBSERVER HELPER ROPING MACHINE TENDER [address] [facility] [place] [address] Vaginal Problem (itchy -worse with cream ) [...] as of this encounter Care Teams Manager Business Information Relationship Specialty Start Date End Date Selma Good, SEISMIC PROSPECTING OBSERVER HELPER ROPING MACHINE TENDER [address] [place] [address] [place] [address] PCP - General 04/09/08 04/07/15 Vanda Guerrero MD [address] [place] [address] [place] [address] PCP - General Internal Medicine 04/08/15 01/08/19 Vanda Guerrero MD [address] [place] [address] [place] [address] PCP - Assigned PCP 07/24/16 06/15/18 Noreen Flores APRN ROPING MACHINE TENDER [address]305 [facility] [place] [address] PCP - Assigned PCP 06/16/18 08/13/18 Noreen Flores APRN ROPING MACHINE TENDER [address] [place] [address] [place] [address] PCP - General Nurse Practitioner 01/09/19 12/12/21 Sudha Greene NP [address] [address] PCP - General 11/01/22 Noreen Flores APRN ROPING MACHINE TENDER [address] [place] [address] [place] [address] Assigned PCP 06/16/18 05/26/22 Kalyan Galvan Personal Advocate & Liaison (PAL) 08/08/19 04/26/21 [facility] [address] [place] [address] [place] [address] Pharmacist Pharmacist 10/14/19 12/01/20 Eduardo Sharma MD 6363 [facility] 103 [place] [address] Assigned Sleep Provider 04/02/2005/07 [place] [address] [facility] 300 [place] [address] Assigned Musculoskeletal Provider 04/02/20 08/24/20 Marcelo Artis PA-C [address] [facility] [address] [place] [address] Assigned Musculoskeletal Provider 08/25/20 08/20/21 Rodrigo Man PA-C [address] [facility] [address] [place] [address] Assigned Surgical Provider 08/25/20 11/27/20 Noreen Flores APRN ROPING MACHINE TENDER 3305 [facility] [place] [id number] Assigned PCP 08/05/22 03/16/23 Agatha Null DPM, Podiatry/Foot and Ankle Surgery [address] [facility] 300 [place] [address] Assigned Musculoskeletal Provider 11/04/22 [facility] 3305 [facility] [place] [id number] Assigned PCP 07/05/23 documented as of this encounter
--- OUTSIDE RECORDS SUMMARY | 2023-10-01 10:28 | XMS_ITS | Encounter Summary ---
Author Name Unknown Organization [place] Address [address] [place] [address] Care Team Providers Care Hardware Technician Name Role Phone Selma Good APRN PUBLIC SERVICES ASSISTANT Primary Care Pro vider Vanda Guerrero MD Primary Care Provider [phone] Vanda Guerrero MD Unavailable [phone] Jeana-JdNoreen castro APRN, CNP Unavailable Jeana-JdNoreen castro APRN, CNP Unavailable Jeana-JdNoreen castro APRN PUBLIC SERVICES ASSISTANT Primary Car e Provider Kalyan Galvan Unavailable Unavailable Lashae Trevino [facility] Unavailable [phone] Eduardo Sharma MD Unavailable Rios Monteiro MD Unavailable [phone] Marcelo Artis PA-C Unavailable [phone] Rodrigo Man PA-C Unavailable [phone] Jeana-JdNoreen castro APRN PUBLIC SERVICES ASSISTANT Unavailable Sudha Greene NP Primary Care Provider Agatha NullM, Podiatry /Foot and Ankle Surgery Unavailable [facility] [facility] Unavailable Encounter Details Date Type Department Care Team (Late st Contact Info) Description 09/18/2008 MyC Medical Advice Initial Department Alejo Caass Obesity, Unspecified (Primary Dx) Social History Tobacco [...] documented as of this encounter Care Teams Hardware Technician Relationship Specialty Start Date End Date Selma Good APRN PUBLIC SERVICES ASSISTANT [address] [place] [address] [place] [address] PCP - General 04/09/08 04/07/15 Vanda Guerrero MD [address] [place] [address] [place] [address] PCP - General Internal Medicine 04/08/15 01/08/19 Vanda Guerrero MD [address] [place] [address] [place] [address] PCP - Assigned PCP 07/24/16 06/15/18 Noreen Flores APRN PUBLIC SERVICES ASSISTANT [address] [place] [address] [place] [address] PCP - Assigned PCP 06/16/18 08/13/18 Noreen Flores APRN PUBLIC SERVICES ASSISTANT [facility] [place] [address] PCP - General Nurse Practitioner 01/09/19 12/12/21 Sudha Greene NP [address] [address] PCP - General 11/01/22 Noreen Flores APRN PUBLIC SERVICES ASSISTANT 3305 [facility] [place] [address] Assigned PCP 06/16/18 05/26/22 Kalyan Galvan Personal Advocate & Liaison (PAL) 08/08/19 04/26/21 Lashae Trevino [facility] [address] [place] [place] [address] [place] [phone] Pharmacist Pharmacist 10/14/19 12/01/20 Eduardo Sharma MD [address] [place] [address] [place] [id number] Assigned Sleep Provider 04/02/2005/07 [place] [address] [facility] 300 [place] [address] Assigned Musculoskeletal Provider 04/02/20 08/24/20 Marcelo Artis PA-C [address] [facility] 300 [place] [address] Assigned Musculoskeletal Provider 08/25/20 08/20/21 Rodrigo Man PA-C [address] [place] [address] [place] [address] Assigned Surgical Provider 08/25/20 11/27/20 Noreen Flores APRN PUBLIC SERVICES ASSISTANT 3305 [facility] [place] [address] Assigned PCP 08/05/22 03/16/23 Agatha Null DPM, Podiatry/Foot and Ankle Surgery [address] [place] [address] Assigned Musculoskeletal Provider 11/04/22 [facility] [address]305 [facility] [place] [address] Assigned PCP 07/05/23 documented as of this encounter
--- OUTSIDE RECORDS SUMMARY | 2023-10-01 10:28 | XMS_ITS | Encounter Summary ---
Author Name Unknown Organization [place] Address [address] [place] [address] Care Team Providers Care Aquatics Instructor Name Role Phone Selma Good APRN INDUSTRIAL ENGINEERING INTERN Primary Care Pro vider Vanda Guerrero MD Primary Care Provider [phone] Vanda Guerrero MD Unavailable [phone] Jeana-JdNoreen castro APRN, CNP Unavailable Jeana-JdNoreen castro APRN, CNP Unavailable Jeana-JdNoreen castro APRN INDUSTRIAL ENGINEERING INTERN Primary Car e Provider Kalyan Galvan Unavailable Unavailable Lashae Trevino [facility] Unavailable [phone] Eduardo Sharma MD Unavailable Rios Monteiro MD Unavailable [phone] Marcelo Artis-Aleyda Unavailable [phone] Rodrigo Man-C Unavailable [phone] Jeana-JdNoreen castro APRN INDUSTRIAL ENGINEERING INTERN Unavailable Sudha Greene NP Primary Care Provider Agatha NullM, Podiatry /Foot and Ankle Surgery Unavailable [facility] [place] Unavailable Reason for Visit * Reason Onset Date Comments Patient Request 07/01/2009 Encounter Details Date Type Department Care Team (Late st Contact Info) Description 07/01/2009 [facility] [address] [place] [address] [place] [address] Selma Good APRN INDUSTRIAL ENGINEERING INTERN [address] [place] [address] [place] [address] Patient Request Social History Tobacco Use Types [...] documented as of this encounter Care Teams Aquatics Instructor Relationship Specialty Start Date End Date Selma Good APRN INDUSTRIAL ENGINEERING INTERN [address] [place] [address] [place] [address] PCP - General 04/09/08 04/07/15 Vanda Guerrero MD [address] [place] [address] [place] [address] PCP - General Internal Medicine 04/08/15 01/08/19 Vanda Guerrero MD [address] [place] [address] [place] [address] PCP - Assigned PCP 07/24/16 06/15/18 Noreen Flores APRN CNP 3305 [facility] [place] [address] PCP - Assigned PCP 06/16/18 08/13/18 Noreen Flores APRN INDUSTRIAL ENGINEERING INTERN [address] [place] [address] [place] [address] PCP - General Nurse Practitioner 01/09/19 12/12/21 Sudha Greene NP [address] [address] PCP - General 11/01/22 Noreen Flores APRN INDUSTRIAL ENGINEERING INTERN [address] [place] [address] [place] [address] Assigned PCP 06/16/18 05/26/22 Kalyan Galvan Personal Advocate & Liaison (PAL) 08/08/19 04/26/21 Lashae Trevino, [facility] [address] [place] [address] [place] [phone] Pharmacist Pharmacist 10/14/19 12/01/20 Eduardo Sharma MD [address] [place] [address] Assigned Sleep Provider 04/02/2005/07 [place] [address] [facility] 300 [place], [place] [address] Assigned Musculoskeletal Provider 04/02/20 08/24/20 Marcelo Artis PA-C 12[address] [facility] 300 [place], [place] 7[address] Assigned Musculoskeletal Provider 08/25/20 08/20/21 Rodrigo Man PA-C [address] [place] [address] [place] [address] Assigned Surgical Provider 08/25/20 11/27/20 Noreen Flores APRN INDUSTRIAL ENGINEERING INTERN 3305 [facility] [place] [address] Assigned PCP 08/05/22 03/16/23 Agatha Null DPM, Podiatry/Foot and Ankle Surgery [address] [place] [address] [place] [address] Assigned Musculoskeletal Provider 11/04/22 Clinic - [facility] 3305 [facility] [place] [address] Assigned PCP 07/05/23 documented as of this encounter
--- OUTSIDE RECORDS SUMMARY | 2023-10-01 10:28 | XMS_ITS | Encounter Summary ---
Author Name Unknown Organization [facility] Address [address] [place] [address] Care Team Providers Care Technical Support 1 Software Engineer Name Role Phone Selma Good APRN BAG SEALER Primary Care Pro vider Vanda Guerrero MD Primary Care Provider [phone] Vanda Guerrero MD Unavailable [phone] Jeana-JdNoreen castro APRN, CNP Unavailable Jeana-JdNoreen castro APRN, CNP Unavailable Jeana-JdNoreen castro APRN BAG SEALER Primary Car e Provider Kalyan Galvan Unavailable Unavailable Lashae Trevino [facility] Unavailable [phone] Eduardo Sharma MD Unavailable Rios Monteiro MD Unavailable [phone] Marcelo Artis PA-C Unavailable [phone] Rodrigo Man PA-C Unavailable [phone] Jeana-JdNoreen castro APRN BAG SEALER Unavailable Sudha Greene NP Primary Care Provider Agatha NullM, Podiatry /Foot and Ankle Surgery Unavailable [facility] Unavailable Encounter Details Date Type Department [...] as of this encounter Care Teams Technical Support 1 Software Engineer Relationship Specialty Start Date End Date Selma Good APRN BAG SEALER [address] [place] [address] [place] [address] PCP - General 04/09/08 04/07/15 Vanda Guerrero MD [address] [place] [address] [place] [address] PCP - General Internal Medicine 04/08/15 01/08/19 Vanda Guerrero MD [address] [place] [address] [place] [address] PCP - Assigned PCP 07/24/16 06/15/18 Noreen Flores APRN BAG SEALER [address] [place] [address] [place] [address] PCP - Assigned PCP 06/16/18 08/13/18 Noreen Flores APRN BAG SEALER [address] [place] [address] [place] [address] PCP - General Nurse Practitioner 01/09/19 12/12/21 Sudha Greene NP [address] [address] PCP - General 11/01/22 Noreen Flores APRN BAG SEALER [address] [facility] [place] [address] Assigned PCP 06/16/18 05/26/22 Kalyan Galvan Personal Advocate & Liaison (PAL) 08/08/19 04/26/21 Lashae Trevino, [facility] [address] [facility] [place] [address] Pharmacist Pharmacist 10/14/19 12/01/20 Eduardo Sharma MD [address] [place] [address] [place] [id number] Assigned Sleep Provider 04/02/2005/07 [place] [address] [facility] [address] [place] [address] Assigned Musculoskeletal Provider 04/02/20 08/24/20 Marcelo Artis PA-C [address] [place] [address] [place] [address] Assigned Musculoskeletal Provider 08/25/20 08/20/21 Rodrigo Man PA-C [address] [place] [address] [place] [address] Assigned Surgical Provider 08/25/20 11/27/20 Noreen Flores APRN BAG SEALER [address] [facility] [place] [address] Assigned PCP 08/05/22 03/16/23 Agatha Null DPM, Podiatry/Foot and Ankle Surgery [address] [place] [address] Assigned Musculoskeletal Provider 11/04/22 [facility] - [facility] [place] [facility] [address] [facility] [place] [phone] Assigned PCP 07/05/23 documented as of this encounter
--- OUTSIDE RECORDS SUMMARY | 2023-10-01 10:28 | XMS_ITS | Encounter Summary ---
Author Name Unknown Organization [facility] Address [address] [place] [address] Care Team Providers Care Extruder Operator Vertical Name Role Phone Selma Good APRN EDUCATION MANAGER Primary Care Pro vider Vanda Guerrero MD Primary Care Provider [phone] Vanda Guerrero MD Unavailable [phone] Jeana-JdNoreen castro APRN, CNP Unavailable Jeana-JdNoreen castro APRN, CNP Unavailable Jeana-JdoNreen castro APRN EDUCATION MANAGER Primary Car e Provider Kalyan Galvan Unavailable Unavailable Lashae Trevino [facility] Unavailable [phone] Eduardo Sharma MD Unavailable Rios Monteiro MD Unavailable [phone] Marcelo Artis-Aleyda Unavailable [phone] Rodrigo Man-C Unavailable [phone] Jeana-JdNoreen castro APRN EDUCATION MANAGER Unavailable Sudha Greene NP Primary Care Provider Agatha NullM, Podiatry /Foot and Ankle Surgery Unavailable [facility] Unavailable Reason for Visit * Reason Onset Date Comments Orders 01/17/2010 mammo and U/Ss Encounter Details Date Type Department Care Team (Late st Contact Info) Description 01/17/2010 MyC Medical Advice [facility] [address] [place] [address] [place] [phone] Selma Good APRN EDUCATION MANAGER [address] [facility] [place] [address] Orders (mammo and U/Ss) Social History Tobacco [...] documented as of this encounter Care Teams Extruder Operator Vertical Relationship Specialty Start Date End Date Selma Good, SEAN EDUCATION MANAGER [address] [place] [address] [place] [address] PCP - General 04/09/08 04/07/15 Vanda Guerrero MD [address] [place] [address] [place] [address] PCP - General Internal Medicine 04/08/15 01/08/19 Vanda Guerrero MD [address] [place] [address] [place] [address] PCP - Assigned PCP 07/24/16 06/15/18 Noreen Flores APRN EDUCATION MANAGER [address] [place] [address] [place] [address] PCP - Assigned PCP 06/16/18 08/13/18 Noreen Flores APRN EDUCATION MANAGER [address] [place] [address] [place] [address] PCP - General Nurse Practitioner 01/09/19 12/12/21 Sudha Greene NP [address] [address] PCP - General 11/01/22 Noreen Flores APRN EDUCATION MANAGER [address] [place] [address] [place] [address] Assigned PCP 06/16/18 05/26/22 Kalyan Galvan Personal Advocate & Liaison (PAL) 08/08/19 04/26/21 [facility] [address] [place] [address] [place] [address] Pharmacist Pharmacist 10/14/19 12/01/20 Eduardo Sharma MD [address] [address] Assigned Sleep Provider 04/02/2005/07 Rios Monteiro MD [address] [place] [address] Assigned Musculoskeletal Provider 04/02/20 08/24/20 Marcelo Artis, PA-C [address] [place] [address] [place] [address] Assigned Musculoskeletal Provider 08/25/20 08/20/21 Rodrigo Man PA-C [address] [facility] [address] [place] [address] Assigned Surgical Provider 08/25/20 11/27/20 Noreen Floers APRN EDUCATION MANAGER [address] [facility] [place] [address] Assigned PCP 08/05/22 03/16/23 Agatha Null DPM, Podiatry/Foot and Ankle Surgery [address] [facility] [address] [place] [address] Assigned Musculoskeletal Provider 11/04/22 [facility] - [facility] [address] [facility] [address] [place] [phone] Assigned PCP 07/05/23 documented as of this encounter
--- OUTSIDE RECORDS SUMMARY | 2023-10-01 10:28 | XMS_ITS | Encounter Summary ---
Author Name Unknown Organization [facility] Address [address] [place] [address] Care Team Providers Care Head Boys Tennis Coach Name Role Phone Selma Good APRN POSTAGE MACHINE OPERATOR Primary Care Pro vider Vanda Guerrero MD Primary Care Provider [phone] Vanda Guerrero MD Unavailable [phone] Jeana-JdNoreen castro APRN, CNP Unavailable Jeana-JdNoreen castro APRN, CNP Unavailable Jeana-JdNoreen castro APRN POSTAGE MACHINE OPERATOR Primary Car e Provider Kalyan Galvan Unavailable Unavailable Lashae Trevino [facility] Unavailable [phone] Eduardo Sharma MD Unavailable Rios Monteiro MD Unavailable [phone] Marcelo Artis-Aleyda Unavailable [phone] Rodrigo Man-C Unavailable [phone] Jeana-JdNoreen castro APRN POSTAGE MACHINE OPERATOR Unavailable Sudha Greene NP Primary Care Provider Agatha NullM, Podiatry /Foot and Ankle Surgery Unavailable [facility] Unavailable Reason for Referral * Referral not Required - Closed Specialty Diagnoses / Procedures Referred By Rylie garcia Referred To Contact Diagnoses Upper back pain Selma Good APRN POSTAGE MACHINE OPERATOR [address] [facility] [place] [address] [facility] DEBRA Chastity [address] [place] [address] Phone: [phone] Referral ID Status Reason Start Date Expiration Date Visits Re quested Visits Authorized [id number] Closed 01/18/2010 01/18/2010 1 1 Comments Coverage of these services is subject to the terms and limitations of your health insurance plan. Please call member services at your health plan with any benefit or coverage questions. [facility] referral to [facility] (Katelyn Colorado M.D.) [phone]. Any [address], MRI or procedures ordered by your specialist must be performed at a [place] facility OR coordinated by your clinic's referral office at [phone]. If X-rays, CTs or MRIs have been performed, please contact the facility where they were done, to arrange for moss picker prior to your scheduled appointment. Please bring this referral request to your appointment and present it to your specialist. Reason for Visit * Reason Onset Date Comments Referral 01/17/2010 Encounter Details Date Type Department Care Team (Late st Contact Info) Description 01/17/2010 [facility] Medical Advice [place] [id number] [facility] [place] [phone] Selma Good, SEAN POSTAGE MACHINE OPERATOR [address] [facility] [place] [address] Referral Social History Tobacco Use Types Packs/Day [...] CONSULT PLASTIC SURGERY (01/31/2010) Selma Good APRN POSTAGE MACHINE OPERATOR REFERRAL documented in this encounter Visit Diagnoses Diagnosis Upper back pain- Primary Pain in thoracic spine documented in this encounter Additional Health Concerns Infection Onset Date Last Indicated Resolved Time Rule Out COVID-19 08/25/2020 08/25/2020 08/26/2020 3:23 PM CDT Rule Out COVID-19 11/26/2022 11/26/2022 11/27/2022 3:38 PM CDT documented as of this encounter Care Teams Head Boys Tennis Coach Relationship Specialty Start Date End Date Selma Good APRN POSTAGE MACHINE OPERATOR [address] [place] [address] [place] [address] PCP - General 04/09/08 04/07/15 Vanda Guerrero MD [address] [place] [address] [place] [address] PCP - General Internal Medicine 04/08/15 01/08/19 Vanda Guerrero MD [address] [place] [address] [place] [address] PCP - Assigned PCP 07/24/16 06/15/18 Noreen Flores APRN POSTAGE MACHINE OPERATOR [address] [place] [address] [place] [address] PCP - Assigned PCP 06/16/18 08/13/18 Noreen Flores APRN POSTAGE MACHINE OPERATOR [address] [place] [address] [place] [address] PCP - General Nurse Practitioner 01/09/19 12/12/21 Sudha Greene NP [address] [address] PCP - General 11/01/22 Noreen Flores APRN POSTAGE MACHINE OPERATOR [address] [facility] [place] [address] Assigned PCP 06/16/18 05/26/22 Kalyan Galvan Personal Advocate & Liaison (PAL) 08/08/19 04/26/21 Lashae Trevino, [facility] [address] [facility] [address] [place] [id number] Pharmacist Pharmacist 10/14/19 12/01/20 Eduardo Sharma MD [address] [place] [address] [place] [address] Assigned Sleep Provider 04/02/2005/07 [place] [address] [facility] [address] [place] [address] Assigned Musculoskeletal Provider 04/02/20 08/24/20 Marcelo Artis PA-C [address] [place] [address] Assigned Musculoskeletal Provider 08/25/20 08/20/21 Rodrigo Man PA-C [address] [place] [address] [place] [address] Assigned Surgical Provider 08/25/20 11/27/20 Noreen Flores APRN POSTAGE MACHINE OPERATOR [address] [facility] [place] [address] Assigned PCP 08/05/22 03/16/23 Agatha Null DPM, Podiatry/Foot and Ankle Surgery [address] [place] [address] Assigned Musculoskeletal Provider 11/04/22 Clinic - [facility] [address] [facility] [address] [place] [address] Assigned PCP 07/05/23 documented as of this encounter
--- OUTSIDE RECORDS SUMMARY | 2023-10-01 10:28 | XMS_ITS | Encounter Summary ---
Author Name Unknown Organization [facility] Address [address] [place] [address] Care Team Providers Care Transmission Engineer Name Role Phone Selma Good APRN METAL FENCE ERECTOR Primary Care Pro vider Vanda Guerrero MD Primary Care Provider [phone] Vanda Guerrero MD Unavailable [phone] Jeana-JdNoreen castro APRN, CNP Unavailable Jeana-JdNoreen castro APRN, CNP Unavailable Jeana-JdNoreen castro APRN METAL FENCE ERECTOR Primary Car e Provider Kalyan Galvan Unavailable Unavailable Lashae Trevino [facility] Unavailable [phone] Eduardo Sharma MD Unavailable Rios Monteiro MD Unavailable [phone] Marcelo Artis PA-C Unavailable [phone] Rodrigo Man PA-C Unavailable [phone] Jeana-JdNoreen castro APRN METAL FENCE ERECTOR Unavailable Sudha Greene NP Primary Care Provider Agatha NullM, Podiatry /Foot and Ankle Surgery Unavailable [facility] Unavailable Encounter Details Date Type Department Care Team (Late st Contact Info) Description 12/14/2009 [facility] [place] [id number] [facility] [place] [phone] [facility] Social [...] documented as of this encounter Care Teams Transmission Engineer Relationship Specialty Start Date End Date Selma Good APRN METAL FENCE ERECTOR [address] [place] [address] [place] [address] PCP - General 04/09/08 04/07/15 Vanda Guerrero MD [address] [place] [address] [place] [address] PCP - General Internal Medicine 04/08/15 01/08/19 Vanda Guerrero MD [address] [place] [address] [place] [address] PCP - Assigned PCP 07/24/16 06/15/18 Noreen Flores APRN METAL FENCE ERECTOR [address] [place] [address] [place] [address] PCP - Assigned PCP 06/16/18 08/13/18 Noreen Flores APRN METAL FENCE ERECTOR [address] [facility] [place] [address] PCP - General Nurse Practitioner 01/09/19 12/12/21 Sudha Greene NP [address] [address] PCP - General 11/01/22 Noreen Flores APRN METAL FENCE ERECTOR [address] [place] [address] [place] [address] Assigned PCP 06/16/18 05/26/22 Kalyan Galvan Personal Advocate & Liaison (PAL) 08/08/19 04/26/21 [facility] [address] [place] [address] [place] [address] Pharmacist Pharmacist 10/14/19 12/01/20 Eduardo Sharma MD [address] [place] [address] Assigned Sleep Provider 04/02/2005/07 [place] [address] [facility] [address] [place] [address] Assigned Musculoskeletal Provider 04/02/20 08/24/20 Marcelo Artis PA-C [address] [facility] [address] [place] [address] Assigned Musculoskeletal Provider 08/25/20 08/20/21 Rodrigo Man PA-C [address] [place] [address] Assigned Surgical Provider 08/25/20 11/27/20 Noreen Flores APRN METAL FENCE ERECTOR [address] [facility] [place] [address] Assigned PCP 08/05/22 03/16/23 Agatha Null DPM, Podiatry/Foot and Ankle Surgery [address] [place] [address] [place] 330637 Assigned Musculoskeletal Provider 11/04/22 [facility] [address] [facility] [address] [place] [address] Assigned PCP 07/05/23 documented as of this encounter
--- OUTSIDE RECORDS SUMMARY | 2023-10-01 10:28 | XMS_ITS | Encounter Summary ---
Author Name Unknown Organization [facility] Address [address] [place] [address] Care Team Providers Care Head Operator Sulfide Name Role Phone Selma Good APRN CUE SELECTOR Primary Care Pro vider Vanda Guerrero MD Primary Care Provider [phone] Vanda Guerrero MD Unavailable [phone] Jeana-JdNoreen castro APRN, CNP Unavailable Jeana-JdNoreen castro APRN, CNP Unavailable Jeana-JdNoreen castro APRN CUE SELECTOR Primary Car e Provider Kalyan Galvan Unavailable Unavailable Lashae Trevino [facility] Unavailable [phone] Eduardo Sharma MD Unavailable Rios Monteiro MD Unavailable [phone] Marcelo Artis PA-C Unavailable [phone] Rodrigo Man PA-C Unavailable [phone] Jeana-JdNoreen castro APRN CUE SELECTOR Unavailable Sudha Greene NP Primary Care Provider Agatha NullM, Podiatry /Foot and Ankle Surgery Unavailable [facility] Unavailable Encounter Details Date Type Department Care Team (Late st Contact Info) Description 04/17/2010 MyC Medical Advice [address] [place] [phone] Selma Good APRN CUE SELECTOR [address] [place] [address] [place] [address] Social History Tobacco Use Types Packs/Day Years [...] respond to pt regarding her sodium intake. H PRESS SETTER documented in this encounter Plan of Treatment Not on file documented as of this encounter Visit Diagnoses Not on filedocumented in this encounter Additional Health Concerns Infection Onset Date Last Indicated Resolved Time Rule Out COVID-19 08/25/2020 08/25/2020 08/26/2020 3:23 PM CDT Rule Out COVID-19 11/26/2022 11/26/2022 11/27/2022 3:38 PM CDT documented as of this encounter Care Teams Head Operator Sulfide Relationship Specialty Start Date End Date Selma Good APRN CUE SELECTOR [address] [place] [address] [place] [address] PCP - General 04/09/08 04/07/15 Vanda Guerrero MD [address] [place] [address] [place] [address] PCP - General Internal Medicine 04/08/15 01/08/19 Vanda Guerrero MD [address] [place] [address] [place] [address] PCP - Assigned PCP 07/24/16 06/15/18 Noreen Flores APRN CUE SELECTOR [address] [place] [address] [place] [address] PCP - Assigned PCP 06/16/18 08/13/18 Noreen Flores APRN CUE SELECTOR [address] [place] [address] [place] [address] PCP - General Nurse Practitioner 01/09/19 12/12/21 Sudha Greene, [place] [address] [address] PCP - General 11/01/22 Noreen Flores APRN CUE SELECTOR [address] [place] [address] [place] [address] Assigned PCP 06/16/18 05/26/22 Kalyan Galvan Personal Advocate & Liaison (PAL) 08/08/19 04/26/21 [facility] 14[address] [facility] [place] [phone] Pharmacist Pharmacist 10/14/19 12/01/20 Eduardo Sharma MD [address] [facility] 103 [place] 139165 Assigned Sleep Provider 04/02/2005/07 [place] [address] [facility] 300 [place] 549507 Assigned Musculoskeletal Provider 04/02/20 08/24/20 Marcelo Artis PA-C [address] [address] Assigned Musculoskeletal Provider 08/25/20 08/20/21 Rodrigo Man PA-C [address] [address] Assigned Surgical Provider 08/25/20 11/27/20 Noreen Flores APRN CUE SELECTOR [address] [place] [address] [place] [address] Assigned PCP 08/05/22 03/16/23 Agatha Null DPM, Podiatry/Foot and Ankle Surgery [address] [place] [address] 300 [place] [address] Assigned Musculoskeletal Provider 11/04/22 [facility] [place] [facility] [address] [place], [place] [address] [address] Assigned PCP 07/05/23 documented as of this encounter
--- OUTSIDE RECORDS SUMMARY | 2023-10-01 10:28 | XMS_ITS | Encounter Summary ---
Author Name Unknown Organization [facility] Address [address] [place] [address] Care Team Providers Care Back Grinder Name Role Phone Selma Good APRN CIGARETTE TIPPER Primary Care Pro vider Vanda Guerrero MD Primary Care Provider [phone] Vanda Guerrero MD Unavailable [phone] Jeana-JdNoreen castro APRN, CNP Unavailable Jeana-JdNoreen castro APRN, CNP Unavailable Jeana-JdNoreen acstro APRN CIGARETTE TIPPER Primary Car e Provider Kalyan Galvan Unavailable Unavailable Lashae Trevino [facility] Unavailable [phone] Eduardo Sharma MD Unavailable Rios Monteiro MD Unavailable [phone] Marcelo Artis-Aleyda Unavailable [phone] Rodrigo Man-C Unavailable [phone] Jeana-JdNoreen castro APRN CIGARETTE TIPPER Unavailable Sudha Greene NP Primary Care Provider [phone] Agatha NullM, Podiatry /Foot and Ankle Surgery Unavailable [facility] Unavailable Reason for Referral * Referral not Required - Closed Specialty Diagnoses / Procedures Referred By Rylie t Referred To Contact Diagnoses Migraine headaches Selma Good APRN CIGARETTE TIPPER [address] [facility] [place] [address] [facility] [address] [place] [address] Referral ID Status Reason Start Date Expiration Date Visits Re quested Visits Authorized [id number] Closed 09/18/2008 06/10/2011 1 1 Comments Coverage of these services is subject to the terms and limitations of your health insurance plan. Please call member services at your health plan with any benefit or coverage questions. [facility] referral to [facility] at [phone]. . Any CT, MRI or procedures ordered by your specialist must be performed at a [facility] facility OR coordinated by your clinic's referral office at [phone]. If X-rays, CTs or MRIs have been performed, please contact the facility where they were done, to arrange for histology supervisor prior to your scheduled appointment. Please bring this referral request to your appointment and present it to your specialist. Reason for Visit * Reason Onset Date Comments Medication Request 09/17/2008 migraine med Encounter Details Date Type Department Care Team (Late st Contact Info) Description 09/17/2008 [facility] Medical Advice [facility] [address] [facility] [place] [address] Selma Good, SEAN CIGARETTE TIPPER [address] [facility] [place] [address] Medication Request (migraine med) Social History Tobacco [...] sent to patient with phone number for [facility]. Ivette Allan M.A. * Telephone Encounter - Selma Good - 09/18/2008 8:18 AM CDT It appears in my note from when I saw her, I recommended referral to neuro, which she declined at that time. It appears imitrex 'knocked her out.' I would recommend [facility]. documented in this encounter Plan of Treatment Not on file documented as of this encounter Procedures Procedure Name Priority Date/Time Associated Diagnosis Comments ZZ CONSULT NEUROLOGY Routine 11/15/2010 Migraine headaches documented in this encounter Results * CONSULT NEUROLOGY (11/15/2010) Selma Good CEMENTER MACHINE CIGARETTE TIPPER REFERRAL documented in this encounter Visit Diagnoses Diagnosis Migraine headaches- Primary Migraine, unspecified, without mention of intractable migraine without mention of status migrainosus documented in this encounter Additional Health Concerns Infection Onset Date Last Indicated Resolved Time Rule Out COVID-19 08/25/2020 08/25/2020 08/26/2020 3:23 PM CDT Rule Out COVID-19 11/26/2022 11/26/2022 11/27/2022 3:38 PM CDT documented as of this encounter Care Teams Back Grinder Relationship Specialty Start Date End Date Selma Good CEMENTER MACHINE CIGARETTE TIPPER [address] [facility] [place] [address] PCP - General 04/09/08 04/07/15 Vanda Guerrero MD [address] [facility] [place] [address] PCP - General Internal Medicine 04/08/15 01/08/19 Vanda Guerrero MD [address] [place] [address] [place] [address] PCP - Assigned PCP 07/24/16 06/15/18 Noreen Flores APRN CIGARETTE TIPPER [address] [place] [address] [place] [address] PCP - Assigned PCP 06/16/18 08/13/18 Noreen Flores APRN CIGARETTE TIPPER [address] [place] [address] [place] [address] PCP - General Nurse Practitioner 01/09/19 12/12/21 Sudha Greene, MAURICIO [address] [address] PCP - General 11/01/22 Noreen Flores APRN CIGARETTE TIPPER [address] [place] [address] [place] [address] Assigned PCP 06/16/18 05/26/22 Kalyan Galvan Personal Advocate & Liaison (PAL) 08/08/19 04/26/21 Lashae Trevino, [facility] 14[address] [facility] [place] [address] Pharmacist Pharmacist 10/14/19 12/01/20 Eduardo Sharma MD [address] [place] [address] [place] [address] Assigned Sleep Provider 04/02/2005/07 [place] [address] [place] [address] Assigned Musculoskeletal Provider 04/02/20 08/24/20 Marcelo Artis PA-C [address] [facility] [address] [place] [address] Assigned Musculoskeletal Provider 08/25/20 08/20/21 Rodrigo Man PA-C [address] [facility] [address] [place] [address] Assigned Surgical Provider 08/25/20 11/27/20 Noreen Flores APRN CIGARETTE TIPPER [address] [place] [address] [place] [address] Assigned PCP 08/05/22 03/16/23 Agatha Null DPM, Podiatry/Foot and Ankle Surgery [address] [place] [address] [facility] 300 [place] [address] Assigned Musculoskeletal Provider 11/04/22 [facility] [place] [address] [facility] [place] [id number] Assigned PCP 07/05/23 documented as of this encounter
--- OUTSIDE RECORDS SUMMARY | 2023-10-01 10:28 | XMS_ITS | Encounter Summary ---
Author Name Unknown Organization [facility] Address [address] [place] [address] Care Team Providers Care Client Relation Specialist Name Role Phone Selma Good APRN INVOICING SPECIALIST Primary Care Pro vider Vanda Guerrero MD Primary Care Provider [phone] Vanda Guerrero MD Unavailable [phone] Jeana-JdNoreen castro APRN, CNP Unavailable Jeana-JdNoreen castro APRN, CNP Unavailable Jeana-JdNoreen castro APRN INVOICING SPECIALIST Primary Car e Provider Kalyan Galvan Unavailable Unavailable Lashae Trevino [facility] Unavailable [phone] Eduardo Sharma MD Unavailable Rios Monteiro MD Unavailable [phone] Marcelo Artis PA-C Unavailable [phone] Rodrigo Man PA-C Unavailable [phone] Jeana-JdNoreen castro APRN INVOICING SPECIALIST Unavailable Sudha Greene NP Primary Care Provider Agatha NullM, Podiatry /Foot and Ankle Surgery Unavailable [facility] Unavailable Encounter Details Date Type Department Care Team (Late st Contact Info) Description 04/24/2011 [facility] Medical Advice [place] [address] [facility] [place] [phone] Alejo Casas Social History [...] as of this encounter Care Teams Client Relation Specialist Relationship Specialty Start Date End Date Selma Good APRN INVOICING SPECIALIST [address] [place] [address] [place] [address] PCP - General 04/09/08 04/07/15 Vanda Guerrero MD [address] [place] [address] [place] [address] PCP - General Internal Medicine 04/08/15 01/08/19 Vanda Guerrero MD [address] [place] [address] [place] [address] PCP - Assigned PCP 07/24/16 06/15/18 Noreen Flores APRN INVOICING SPECIALIST [address] [place] [address] [place] [address] PCP - Assigned PCP 06/16/18 08/13/18 Noreen Flores APRN INVOICING SPECIALIST [address] [facility] [place] [address] PCP - General Nurse Practitioner 01/09/19 12/12/21 Sudha Greene NP [address] [address] PCP - General 11/01/22 Noreen Flores APRN INVOICING SPECIALIST [address] [place] [address] [place] [address] Assigned PCP 06/16/18 05/26/22 Kalyan Galvan Personal Advocate & Liaison (PAL) 08/08/19 04/26/21 [facility] [address] [place] [address] [place] [address] Pharmacist Pharmacist 10/14/19 12/01/20 Eduardo Sharma MD [address] [place] [address] [place] [address] Assigned Sleep Provider 04/02/2005/07 [place] [address] [facility] [address] [place] [address] Assigned Musculoskeletal Provider 04/02/20 08/24/20 Marcelo Artis PA-C [address] [facility] [address] [place] [address] Assigned Musculoskeletal Provider 08/25/20 08/20/21 Rodrigo Man PA-C [address] [place] [address] [place] [address] Assigned Surgical Provider 08/25/20 11/27/20 Noreen Flores APRN INVOICING SPECIALIST [address] [facility] [place] [address] Assigned PCP 08/05/22 03/16/23 Agatha Null DPM, Podiatry/Foot and Ankle Surgery [address] [place] [address] [place] 828117 Assigned Musculoskeletal Provider 11/04/22 [facility] [place] [address] [facility] [address] [place] [address] Assigned PCP 07/05/23 documented as of this encounter
--- OUTSIDE RECORDS SUMMARY | 2023-10-01 10:28 | XMS_ITS | Encounter Summary ---
Author Name Unknown Organization [facility] Address [address] [place] [address] Care Team Providers Care Locomotive Mechanic Apprentice Name Role Phone Selma Good APRN MAGISTRATE Primary Care Pro vider Vanda Guerrero MD Primary Care Provider [phone] Vanda Guerrero MD Unavailable [phone] Jeana-JdNoreen castro APRN, CNP Unavailable Jeana-JdNoreen castro APRN, CNP Unavailable Jeana-JdNoreen castro APRN MAGISTRATE Primary Car e Provider Kalyan Galvan Unavailable Unavailable Lashae Trevino [facility] Unavailable [phone] Eduardo Sharma MD Unavailable Rios Monteiro MD Unavailable [phone] Marcelo Artis-Aleyda Unavailable [phone] Rodrigo Man-C Unavailable [phone] Jeana-JdNoreen castro APRN MAGISTRATE Unavailable Sudha Greene NP Primary Care Provider Agatha NullM, Podiatry /Foot and Ankle Surgery Unavailable [facility] Unavailable Reason for Visit * Reason Onset Date Comments Patient Request 01/26/2010 Encounter Details Date Type Department Care Team (Late st Contact Info) Description 01/26/[address] [facility] [address] [place] [address] [place] [phone] Selma Good APRN MAGISTRATE [address] [facility] [place] [address] Patient Request Social History Tobacco Use Types [...] documented as of this encounter Care Teams Locomotive Mechanic Apprentice Relationship Specialty Start Date End Date Selma Good, SEAN MAGISTRATE [address] [place] [address] [place] [address] PCP - General 04/09/08 04/07/15 Vanda Guerrero MD [address] [place] [address] [place] [address] PCP - General Internal Medicine 04/08/15 01/08/19 Vanda Guerrero MD [address] [place] [address] [place] [address] PCP - Assigned PCP 07/24/16 06/15/18 Noreen Flores APRN MAGISTRATE [address] [place] [address] [place] [address] PCP - Assigned PCP 06/16/18 08/13/18 Noreen Flores APRN MAGISTRATE [address] [place] [address] [place] [address] PCP - General Nurse Practitioner 01/09/19 12/12/21 Sudha Greene NP [address] [address] PCP - General 11/01/22 Noreen Flores APRN MAGISTRATE [address] [place] [address] [place] [address] Assigned PCP 06/16/18 05/26/22 Kalyan Galvan Personal Advocate & Liaison (PAL) 08/08/19 04/26/21 Lashae Trevino, [facility] [address] [facility] [place] [address] Pharmacist Pharmacist 10/14/19 12/01/20 Eduardo Sharma MD [address] [facility] [address] [place] [address] Assigned Sleep Provider 04/02/2005/07 [place] [address] [facility] 300 [place] [address] Assigned Musculoskeletal Provider 04/02/20 08/24/20 Marcelo Artis, PA-C [address] [facility] 300 [place] [address] Assigned Musculoskeletal Provider 08/25/20 08/20/21 Rodrigo Man PA-C [address] [facility] [address] [place] [address] Assigned Surgical Provider 08/25/20 11/27/20 Noreen Flores APRN MAGISTRATE 3305 [facility] [place] [id number] Assigned PCP 08/05/22 03/16/23 Agatha Null DPM, Podiatry/Foot and Ankle Surgery 238[address] [facility] [address] [place] [address] Assigned Musculoskeletal Provider 11/04/22 [facility] [address] [facility] [place] [phone] Assigned PCP 07/05/23 documented as of this encounter
--- OUTSIDE RECORDS SUMMARY | 2023-10-01 10:28 | XMS_ITS | Encounter Summary ---
Author Name Unknown Organization [place] Address [address] [place] [address] Care Team Providers Care Civil Engineering Manager Name Role Phone Selma Good APRN CUSTOM VAN CONVERTER Primary Care Pro vider Vanda Guerrero MD Primary Care Provider [phone] Vanda Guerrero MD Unavailable [phone] Jeana-JdNoreen castro APRN, CNP Unavailable Jeana-JdNoreen castro APRN, CNP Unavailable Jeana-JdNoreen castro APRN CUSTOM VAN CONVERTER Primary Car e Provider Kalyan Galvan Unavailable Unavailable Lashae Trevino [facility] Unavailable [phone] Eduardo Sharma MD Unavailable Rios Monteiro MD Unavailable [phone] Marcelo Artis PA-C Unavailable [phone] Rodrigo Man PA-C Unavailable [phone] Jeana-JdNoreen castro APRN CUSTOM VAN CONVERTER Unavailable Sudha Greene NP Primary Care Provider Agatha NullM, Podiatry /Foot and Ankle Surgery Unavailable [facility] Unavailable Encounter Details Date Type Department Care Team (Late st Contact Info) Description 05/28/2012 [facility] Medical Advice [address] [place] [address] Alejo Casas Social History [...] documented as of this encounter Care Teams Civil Engineering Manager Relationship Specialty Start Date End Date Selma Good APRN CUSTOM VAN CONVERTER 3305 [facility] [place] [address] PCP - General 04/09/08 04/07/15 Vanda Guerrero MD [address] [place] [address] [place] [address] PCP - General Internal Medicine 04/08/15 01/08/19 Vanda Guerrero MD [address] [place] [address] [place] [address] PCP - Assigned PCP 07/24/16 06/15/18 Noreen Flores APRN CUSTOM VAN CONVERTER [facility]5 [facility] [place] [address] PCP - Assigned PCP 06/16/18 08/13/18 Noreen Flores APRN CUSTOM VAN CONVERTER [address] [place] [address] [place] [address] PCP - General Nurse Practitioner 01/09/19 12/12/21 Sudha Greene NP [address] [address] PCP - General 11/01/22 Noreen Flores APRN CUSTOM VAN CONVERTER [address] [place] [address] [place] [address] Assigned PCP 06/16/18 05/26/22 Kalyan Galvan Personal Advocate & Liaison (PAL) 08/08/19 04/26/21 [facility] [address] [place] [address] [place] [address] Pharmacist Pharmacist 10/14/19 12/01/20 Eduardo Sharma MD [address] [address] Assigned Sleep Provider 04/02/2005/07 [place] [address] [place] [address] 300 [place] [address] Assigned Musculoskeletal Provider 04/02/20 08/24/20 Marcelo Artis PA-C [address] [facility] 300 [place] [address] Assigned Musculoskeletal Provider 08/25/20 08/20/21 Rodrigo Man PA-C [address] [place] [address] Assigned Surgical Provider 08/25/20 11/27/20 Noreen Flores APRN CUSTOM VAN CONVERTER 3305 [facility] [place] [address] Assigned PCP 08/05/22 03/16/23 Agatha Null DPM, Podiatry/Foot and Ankle Surgery [address] [place] [address] [place] [address]10847 Assigned Musculoskeletal Provider 11/04/22 [facility] - [facility] [place] 3305 [facility] [place] [address] Assigned PCP 07/05/23 documented as of this encounter
--- OUTSIDE RECORDS SUMMARY | 2023-10-01 10:28 | XMS_ITS | Encounter Summary ---
Author Name Unknown Organization [place] Address [address] [place] [address] Care Team Providers Care Tabulating Clerk Name Role Phone Selma Good APRN COAGULATING BATH MIXER Primary Care Pro vider Vanda Guerrero MD Primary Care Provider [phone] Vanda Guerrero MD Unavailable [phone] Jeana-JdNoreen castro APRN, CNP Unavailable Jeana-JdNoreen castro APRN, CNP Unavailable Jeana-JdNoreen castro APRN COAGULATING BATH MIXER Primary Car e Provider Kalyan Galvan Unavailable Unavailable [facility] Tre[facility]ino [facility] Unavailable [phone] Eduardo Sharma MD Unavailable Rios Monteiro MD Unavailable [phone] Marcelo Artis-Aleyda Unavailable [phone] Rodrigo Man-C Unavailable [phone] Jeana-JdNoreen castro APRN COAGULATING BATH MIXER Unavailable Sudha Greene NP Primary Care Provider [phone] Agatha NullM, Podiatry /Foot and Ankle Surgery Unavailable [facility] Unavailable Reason for Visit * Reason Onset Date Comments Appointment 08/10/2010 next diabetes? Encounter Details Date Type Department Care Team (Late st Contact Info) Description 08/10/2010 [facility] [address] [place] [address] [place] [phone] Selma Good APRN COAGULATING BATH MIXER [facility] [place] [address] Appointment (next diabetes? ) Social History Tobacco [...] documented as of this encounter Care Teams Tabulating Clerk Relationship Specialty Start Date End Date Selma Good APRN COAGULATING BATH MIXER [address] [place] [address] [place] [address] PCP - General 04/09/08 04/07/15 Vanda Guerrero MD [address] [place] [address] [place] [address] PCP - General Internal Medicine 04/08/15 01/08/19 Vanda Guerrero MD [address] [place] [address] [place] [address] PCP - Assigned PCP 07/24/16 06/15/18 Noreen Flores APRN COAGULATING BATH MIXER [address] [place] [address] [place] [address] PCP - Assigned PCP 06/16/18 08/13/18 Noreen Flores APRN COAGULATING BATH MIXER [address] [place] [address] [place] [address] PCP - General Nurse Practitioner 01/09/19 12/12/21 Sudha Greene NP [address] [address] PCP - General 11/01/22 Noreen Flores APRN COAGULATING BATH MIXER [address] [place] [address] [place] [address] Assigned PCP 06/16/18 05/26/22 Kalyan Galvan Personal Advocate & Liaison (PAL) 08/08/19 04/26/21 [facility] [employer] [facility] [place] [id number] Pharmacist Pharmacist 10/14/19 12/01/20 Eduardo Sharma MD [address] [place] [address] Assigned Sleep Provider 04/02/2005/07 Rios Monteiro MD [address] [place] [address] [id number] Assigned Musculoskeletal Provider 04/02/20 08/24/20 Marcelo Artis, PA-C [address] [place] [address] 300 [place] [address] Assigned Musculoskeletal Provider 08/25/20 08/20/21 Rodrigo Man PA-C [address] [place] [address] Assigned Surgical Provider 08/25/20 11/27/20 Noreen Flores APRN COAGULATING BATH MIXER 3305 [facility] [place] [address] Assigned PCP 08/05/22 03/16/23 Agatha Null DPM, Podiatry/Foot and Ankle Surgery [address] [place] [address] [place] [address] Assigned Musculoskeletal Provider 11/04/22 [facility] [address] [facility] [address] [place] [id number] Assigned PCP 07/05/23 documented as of this encounter
--- OUTSIDE RECORDS SUMMARY | 2023-10-01 10:28 | XMS_ITS | Encounter Summary ---
Author Name Unknown Organization [place] Address [address] [place] [address] Care Team Providers Care Air Conditioning Supervisor Name Role Phone Selma Good APRN POND SAWYER Primary Care Pro vider Vanda Guerrero MD Primary Care Provider [phone] Vanda Guerrero MD Unavailable [phone] Jeana-JdNoreen castro APRN, CNP Unavailable Jeana-JdNoreen castro APRN, CNP Unavailable Jeana-JdNoreen castro APRN POND SAWYER Primary Car e Provider Kalyan Galvan Unavailable Unavailable Lashae Trevino [facility] Unavailable [phone] Eduardo Sharma MD Unavailable Rios Monteiro MD Unavailable [phone] Marcelo Artis PA-C Unavailable [phone] Rodrigo Man PA-C Unavailable [phone] Jeana-JdNoreen castro APRN POND SAWYER Unavailable Sudha Greene NP Primary Care Provider Agatha NullM, Podiatry /Foot and Ankle Surgery Unavailable [facility] Unavailable Encounter Details Date Type Department Care Team (Late st Contact Info) Description 02/11/2010 [facility] [place] Medical Advice [place] [id number] [employer] [place] [address] Alejo Casas Social History [...] documented as of this encounter Care Teams Air Conditioning Supervisor Relationship Specialty Start Date End Date Selma Good APRN POND SAWYER [address] [place] [address] [place] [address] PCP - General 04/09/08 04/07/15 Vanda Guerrero MD [address] [place] [address] [place] [address] PCP - General Internal Medicine 04/08/15 01/08/19 Vanda Guerrero MD [address] [place] [address] [place] [address] PCP - Assigned PCP 07/24/16 06/15/18 Noreen Flores APRN POND SAWYER [address] [place] [address] [place] [address] PCP - Assigned PCP 06/16/18 08/13/18 Noreen Flores APRN POND SAWYER [address]305 [facility] [place] [address] PCP - General Nurse Practitioner 01/09/19 12/12/21 Sudha Greene NP [address] [address] PCP - General 11/01/22 Noreen Flores APRN POND SAWYER [address] [place] [address] [place] [address] Assigned PCP 06/16/18 05/26/22 Kalyan Galvan Personal Advocate & Liaison (PAL) 08/08/19 04/26/21 [facility] [address] [place] [address] [place] [address] Pharmacist Pharmacist 10/14/19 12/01/20 Eduardo Sharma MD [address] [place] [address] [place] [address] Assigned Sleep Provider 04/02/2005/07 [place] [address] [facility] [address] [place] [address] Assigned Musculoskeletal Provider 04/02/20 08/24/20 Marcelo Artis PA-C [address] [facility] [address] [place] [address] Assigned Musculoskeletal Provider 08/25/20 08/20/21 Rodrigo Man PA-C [address] [place] [address] [place] [address] Assigned Surgical Provider 08/25/20 11/27/20 Noreen Flores APRN POND SAWYER 3305 [facility] [place] [address] Assigned PCP 08/05/22 03/16/23 Agatha Null DPM, Podiatry/Foot and Ankle Surgery [address] [place] [address] [place] [id number] Assigned Musculoskeletal Provider 11/04/22 [facility] [address] [facility] [place] [address] Assigned PCP 07/05/23 documented as of this encounter
--- OUTSIDE RECORDS SUMMARY | 2023-10-01 10:28 | XMS_ITS | Encounter Summary ---
Author Name Unknown Organization [facility] Address [address] [place] [address] Care Team Providers Care Terminal Makeup Operator Name Role Phone Selma Good APRN CREDIT CONSULTANT Primary Care Pro vider Vanda Guerrero MD Primary Care Provider [phone] Vanda Guerrero MD Unavailable [phone] Jeana-JdNroeen castro APRN, CNP Unavailable Jeana-JdNoreen castro APRN, CNP Unavailable Jeana-JdNoreen castro APRN CREDIT CONSULTANT Primary Car e Provider Kalyan Galvan Unavailable Unavailable Lashae Trevino [facility] Unavailable [phone] Eduardo Sharma MD Unavailable Rios Monteiro MD Unavailable [phone] Marcelo Artis-Aleyda Unavailable [phone] Rodrigo Man-C Unavailable [phone] Jeana-JdNoreen castro APRN CREDIT CONSULTANT Unavailable Sudha Greene NP Primary Care Provider Agatha NullM, Podiatry /Foot and Ankle Surgery Unavailable [facility] Unavailable Reason for Visit * Reason Onset Date Comments Cellulitis 09/13/2010 not completely g one Encounter Details Date Type Department Care Team (Late st Contact Info) Description 09/13/2010 MyC Medical Advice [facility] [place] [address] [place] [address] [place] [phone] Selma Good, MUFFLER TENDER CREDIT CONSULTANT [facility] [place] [address] Cellulitis (not completely gone ) Social History [...] Start Date End Date Selma Good, SEAN CREDIT CONSULTANT [address] [place] [address] [place] [address] PCP - General 04/09/08 04/07/15 Vanda Guerrero MD [address] [place] [address] [place] [address] PCP - General Internal Medicine 04/08/15 01/08/19 Vanda Guerrero MD [address] [place] [address] [place] [address] PCP - Assigned PCP 07/24/16 06/15/18 Noreen Flores APRN CREDIT CONSULTANT [address] [place] [address] [place] [address] PCP - Assigned PCP 06/16/18 08/13/18 Noreen Flores APRN CREDIT CONSULTANT [address] [place] [address] [place] [address] PCP - General Nurse Practitioner 01/09/19 12/12/21 Sudha Greene NP [address] [address] PCP - General 11/01/22 Noreen Flores APRN CREDIT CONSULTANT [address] [place] [address] [place] [address] Assigned PCP 06/16/18 05/26/22 Kalyan Galvan Personal Advocate & Liaison (PAL) 08/08/19 04/26/21 [facility] [address] [place] [address] [place] [address] Pharmacist Pharmacist 10/14/19 12/01/20 Eduardo Sharma MD [address] [place] [address] Assigned Sleep Provider 04/02/2005/07 Rios Monteiro MD [address] [place] [address] 300 [place], [place] 736537 Assigned Musculoskeletal Provider 04/02/20 08/24/20 Marcelo Artis, PA-C [id number] [place] [address] 300 [place] [address] Assigned Musculoskeletal Provider 08/25/20 08/20/21 Rodrigo Man PA-C [address] [place] [facility] [address] [place] [address] Assigned Surgical Provider 08/25/20 11/27/20 Noreen Flores APRN CREDIT CONSULTANT 3305 [facility] [place] [address] Assigned PCP 08/05/22 03/16/23 Agatha Null DPM, Podiatry/Foot and Ankle Surgery [address] [place] [address] [place] [address] Assigned Musculoskeletal Provider 11/04/22 Clinic - Nita [facility]ringle [facility] 3305 [facility] [place] [phone] Assigned PCP 07/05/23 documented as of this encounter
--- OUTSIDE RECORDS SUMMARY | 2023-10-01 10:28 | XMS_ITS | Encounter Summary ---
Author Name Unknown Organization [facility] Address [address] [place] [address] Care Team Providers Care Chemical Equipment Sales Engineer Name Role Phone Selma Good APRN DATE NIGHT CAREGIVER Primary Care Pro vider Vanda Guerrero MD Primary Care Provider [phone] Vanda Guerrero MD Unavailable [phone] Jeana-JdNoreen castro APRN, CNP Unavailable Jeana-JdNoreen castro APRN, CNP Unavailable Jeana-JdNoreen castro APRN DATE NIGHT CAREGIVER Primary Car e Provider Kalyan Galvan Unavailable Unavailable Lashae Trevino [facility] Unavailable [phone] Eduardo Sharma MD Unavailable Rios Monteiro MD Unavailable [phone] Marcelo Artis PA-C Unavailable [phone] Rodrigo Man PA-C Unavailable [phone] Jeana-JdNoreen castro APRN DATE NIGHT CAREGIVER Unavailable Sudha Greene NP Primary Care Provider Agatha NullM, Podiatry /Foot and Ankle Surgery Unavailable [facility] Unavailable Encounter Details Date Type Department Care Team (Late st Contact Info) Description 01/11/2010 [facility] [place] [id number] [facility] [place] [id number] Alejo Casas Social [...] as of this encounter Care Teams Chemical Equipment Sales Engineer Relationship Specialty Start Date End Date Selma Good APRN DATE NIGHT CAREGIVER [address] [place] [address] [place] [address] PCP - General 04/09/08 04/07/15 Vanda Guerrero MD [address] [place] [address] [place] [address] PCP - General Internal Medicine 04/08/15 01/08/19 Vanda Guerrero MD [address] [place] [address] [place] [address] PCP - Assigned PCP 07/24/16 06/15/18 Noreen Flores APRN DATE NIGHT CAREGIVER [address] [place] [address] [place] [address] PCP - Assigned PCP 06/16/18 08/13/18 Noreen Flores APRN DATE NIGHT CAREGIVER 3305 [facility] [place] [address] PCP - General Nurse Practitioner 01/09/19 12/12/21 Sudha Greene NP [address] [address] PCP - General 11/01/22 Noreen Flores APRN DATE NIGHT CAREGIVER [address] [place] [address] [place] [address] Assigned PCP 06/16/18 05/26/22 Kalyan Galvan Personal Advocate & Liaison (PAL) 08/08/19 04/26/21 [facility] [address] [place] [address] [place] [address] Pharmacist Pharmacist 10/14/19 12/01/20 Eduardo Sharma MD [address] [place] [address] [place] [address] Assigned Sleep Provider 04/02/2005/07 [place] [address] [facility] [address] [place] [address] Assigned Musculoskeletal Provider 04/02/20 08/24/20 Marcelo Artis PA-C [address] [facility] [address] [place] [address] Assigned Musculoskeletal Provider 08/25/20 08/20/21 Rodrigo Man PA-C [address] [place] [address] [place] [address] Assigned Surgical Provider 08/25/20 11/27/20 Noreen Flores APRN DATE NIGHT CAREGIVER 3305 [facility] [place] [address] Assigned PCP 08/05/22 03/16/23 Agatha Null DPM, Podiatry/Foot and Ankle Surgery [address] [place] [address] [place] [id number] Assigned Musculoskeletal Provider 11/04/22 [facility] [address] [facility] [address] [place] [address] Assigned PCP 07/05/23 documented as of this encounter
--- OUTSIDE RECORDS SUMMARY | 2023-10-01 10:28 | XMS_ITS | Encounter Summary ---
Author Name Unknown Organization [facility] Address [address] [place] [address] Care Team Providers Care Welder Tool And Die Name Role Phone Selma Good APRN CHARGING MACHINE OPERATOR Primary Care Pro vider Vanda Guerrero MD Primary Care Provider [phone] Vanda Guerrero MD Unavailable [phone] Jeana-JdNoreen castro APRN, CNP Unavailable Jeana-JdNoreen castro APRN, CNP Unavailable Jeana-JdNoreen castro APRN CHARGING MACHINE OPERATOR Primary Car e Provider Kalyan Galvan Unavailable Unavailable Lashae Trevino [facility] Unavailable [phone] Eduardo Sharma MD Unavailable Rios Monteiro MD Unavailable [phone] Marcelo Artis PA-C Unavailable [phone] Rodrigo Man PA-C Unavailable [phone] Jeana-JdNoreen castro APRN CHARGING MACHINE OPERATOR Unavailable Sudha Greene NP Primary Care Provider Agatha NullM, Podiatry /Foot and Ankle Surgery Unavailable [facility] Unavailable Encounter Details Date Type Department Care Team (Late st Contact Info) Description 07/21/2010 [facility] [place] [phone] Selma Good APRN CHARGING MACHINE OPERATOR [address] [place] [address] [place] [address] Social History Tobacco Use Types Packs/Day Years [...] as of this encounter Care Teams Welder Tool And Die Relationship Specialty Start Date End Date Selma Good APRN CHARGING MACHINE OPERATOR [address] [place] [address] [place] [address] PCP - General 04/09/08 04/07/15 Vanda Guerrero MD [address] [place] [address] [place] [address] PCP - General Internal Medicine 04/08/15 01/08/19 Vanda Guerrero MD [address] [place] [address] [place] [address] PCP - Assigned PCP 07/24/16 06/15/18 Noreen Flores APRN CHARGING MACHINE OPERATOR [address] [place] [address] [place] [address] PCP - Assigned PCP 06/16/18 08/13/18 Noreen Flores APRN CHARGING MACHINE OPERATOR [address] [place] [address] [place] [address] PCP - General Nurse Practitioner 01/09/19 12/12/21 Sudah Greene NP [address] [address] PCP - General 11/01/22 Noreen Flores APRN CHARGING MACHINE OPERATOR [address] [place] [address] [place] [address] Assigned PCP 06/16/18 05/26/22 Kalyan Galvan Personal Advocate & Liaison (PAL) 08/08/19 04/26/21 [facility] [address] [place] [address] [place] [phone] Pharmacist Pharmacist 10/14/19 12/01/20 Eduardo Sharma MD 6363 [facility] 103 [place] [address] Assigned Sleep Provider 04/02/2005/07 [place] [address] [address] [place] [address] [place] [address] Assigned Musculoskeletal Provider 04/02/20 08/24/20 Marcelo Artis PARejiC [address] [place] [address] [place] [address] Assigned Musculoskeletal Provider 08/25/20 08/20/21 Rodrigo Man PA-C [address] [place] [address] Assigned Surgical Provider 08/25/20 11/27/20 Noreen Flores APRN CHARGING MACHINE OPERATOR 3305 [facility] [place] [address] Assigned PCP 08/05/22 03/16/23 Agatha Null DPM, Podiatry/Foot and Ankle Surgery [address] [place] [address] [place] [address] Assigned Musculoskeletal Provider 11/04/22 [facility] 3305 [facility] DAV[place] ORDOÑE[place] [address] Assigned PCP 07/05/23 documented as of this encounter
--- OUTSIDE RECORDS SUMMARY | 2023-10-01 10:28 | XMS_ITS | Encounter Summary ---
Author Name Unknown Organization [facility] Address [address] [place] [address] Care Team Providers Care Marketing Automation Manager Name Role Phone Selma Good APRN STRAP BUCKLER MACHINE Primary Care Pro vider Vanda Guerrero MD Primary Care Provider [phone] Vanda Guerrero MD Unavailable [phone] Jeana-JdNoreen castro APRN, CNP Unavailable Jeana-JdNoreen castro APRN, CNP Unavailable Jeana-JdNoreen castro APRN STRAP BUCKLER MACHINE Primary Car e Provider Kalyan Galvan Unavailable Unavailable Lashae Trevino [facility] Unavailable [phone] Eduardo Sharma MD Unavailable Rios Monteiro MD Unavailable [phone] Marcelo Artis PA-C Unavailable [phone] Rodrigo Man PA-C Unavailable [phone] Jeana-JdNoreen castro APRN STRAP BUCKLER MACHINE Unavailable Sudha Greene NP Primary Care Provider Agatha NullM, Podiatry /Foot and Ankle Surgery Unavailable [facility] Unavailable Encounter Details Date [...] as of this encounter Care Teams Marketing Automation Manager Relationship Specialty Start Date End Date Selma Good APRN STRAP BUCKLER MACHINE [address] [place] [address] [place] [address] PCP - General 04/09/08 04/07/15 Vanda Guerrero MD [address] [place] [address] [place] [address] PCP - General Internal Medicine 04/08/15 01/08/19 Vanda Guerrero MD [address] [place] [address] [place] [address] PCP - Assigned PCP 07/24/16 06/15/18 Noreen Flores APRN STRAP BUCKLER MACHINE [address] [place] [address] [place] [address] PCP - Assigned PCP 06/16/18 08/13/18 Noreen Flores APRN STRAP BUCKLER MACHINE [address] [place] [address] [place] [address] PCP - General Nurse Practitioner 01/09/19 12/12/21 Sudha Greene NP [address] [address] PCP - General 11/01/22 Noreen Flores APRN STRAP BUCKLER MACHINE 3305 [facility] [place] [address] Assigned PCP 06/16/18 05/26/22 Kalyan Galvan Personal Advocate & Liaison (PAL) 08/08/19 04/26/21 Lashae Trevino, [facility] 1440 [facility] [place] [address] Pharmacist Pharmacist 10/14/19 12/01/20 Eduardo Sharma MD [address] [place] [address] [place] 095055 Assigned Sleep Provider 04/02/2005/07 [place] [address] [facility] [address] [place] [address] Assigned Musculoskeletal Provider 04/02/20 08/24/20 Marcelo Artis PA-C [address] [place] [address] [place] [address] Assigned Musculoskeletal Provider 08/25/20 08/20/21 Rodrigo Man PA-C [address] [place] [address] [place] [address] Assigned Surgical Provider 08/25/20 11/27/20 Noreen Flores APRN STRAP BUCKLER MACHINE 3305 [facility] [place] [address] Assigned PCP 08/05/22 03/16/23 Agatha Null DPM, Podiatry/Foot and Ankle Surgery [address] [place] [address] Assigned Musculoskeletal Provider 11/04/22 Clinic - [facility] 3305 [facility] [place] [phone] Assigned PCP 07/05/23 documented as of this encounter
--- OUTSIDE RECORDS SUMMARY | 2023-10-01 10:28 | XMS_ITS | Encounter Summary ---
Author Name Unknown Organization [facility] Address [address] [place] [address] Care Team Providers Care J2Ee Programmer Name Role Phone Selma Good APRN ENVIRONMENTAL MARKETING REPRESENTATIVE Primary Care Pro vider Vanda Guerrero MD Primary Care Provider [phone] Vanda Guerrero MD Unavailable [phone] Jeana-JdNoreen castro APRN, CNP Unavailable Jeana-JdNoreen castro APRN, CNP Unavailable Jeana-JdNoreen castro APRN ENVIRONMENTAL MARKETING REPRESENTATIVE Primary Car e Provider Kalyan Galvan Unavailable Unavailable Lashae Trevino [facility] Unavailable [phone] Eduardo Sharma MD Unavailable Rios Monteiro MD Unavailable [phone] Marcelo Artis-Aleyda Unavailable [phone] Rodrigo Man-C Unavailable [phone] Jeana-JdNoreen castro APRN ENVIRONMENTAL MARKETING REPRESENTATIVE Unavailable Sudha Greene NP Primary Care Provider Agatha NullM, Podiatry /Foot and Ankle Surgery Unavailable [facility] Unavailable Reason for Visit * Reason Onset Date Comments Medication Question 11/23/2011 topamax Encounter Details Date Type Department Care Team (Late st Contact Info) Description 11/23/2011 [facility] [address] [place] [address] [place] [phone] Selma Good APRN ENVIRONMENTAL MARKETING REPRESENTATIVE [address] [facility] [place] [address] Medication Question (topamax) Social History Tobacco Use [...] documented as of this encounter Care Teams J2Ee Programmer Relationship Specialty Start Date End Date Selma Good APRN ENVIRONMENTAL MARKETING REPRESENTATIVE [address] [place] [address] [place] [address] PCP - General 04/09/08 04/07/15 Vanda Guerrero MD [address] [place] [address] [place] [address] PCP - General Internal Medicine 04/08/15 01/08/19 Vanda Guerrero MD [address] [place] [address] [place] [address] PCP - Assigned PCP 07/24/16 06/15/18 Noreen Flores APRN ENVIRONMENTAL MARKETING REPRESENTATIVE [address] [place] [address] [place] [address] PCP - Assigned PCP 06/16/18 08/13/18 Noreen Flores APRN ENVIRONMENTAL MARKETING REPRESENTATIVE [address] [place] [address] [place] [address] PCP - General Nurse Practitioner 01/09/19 12/12/21 Sudha Greene NP [address] [address] PCP - General 11/01/22 Noreen Flores APRN ENVIRONMENTAL MARKETING REPRESENTATIVE [address] [place] [address] [place] [address] Assigned PCP 06/16/18 05/26/22 Kalyan Galvan Personal Advocate & Liaison (PAL) 08/08/19 04/26/21 [facility] [address] [place] [address] [place] [address] Pharmacist Pharmacist 10/14/19 12/01/20 Eduardo Sharma MD [address] [address] Assigned Sleep Provider 04/02/2005/07 Rios Monteiro MD [address] [place] [address] Assigned Musculoskeletal Provider 04/02/20 08/24/20 Marcelo Artis, PA-C [address] [facility] [address] [place] [address] Assigned Musculoskeletal Provider 08/25/20 08/20/21 Rodrigo Man PA-C [address] [facility] 450 [place] [address] Assigned Surgical Provider 08/25/20 11/27/20 Noreen Flores APRN ENVIRONMENTAL MARKETING REPRESENTATIVE [address] [facility] [place] [address] Assigned PCP 08/05/22 03/16/23 Agatha Null DPM, Podiatry/Foot and Ankle Surgery 356[address] [facility] [address] [place] [address] Assigned Musculoskeletal Provider 11/04/22 Clinic - N[facility] Pring[facility] [address] [facility] [place] [phone] Assigned PCP 07/05/23 documented as of this encounter
--- OUTSIDE RECORDS SUMMARY | 2023-10-01 10:28 | XMS_ITS | Encounter Summary ---
Author Name Unknown Organization [facility] Address [address] [place] [address] Care Team Providers Care Cloth Feeder Name Role Phone Selma Good APRN STEWARD DISHWASHER Primary Care Pro vider Vanda Guerrero MD Primary Care Provider [phone] Vanda Guerrero MD Unavailable [phone] Jeana-JdNoreen castro APRN, CNP Unavailable Jeana-JdNoreen castro APRN, CNP Unavailable Jeana-JdNoreen castro APRN STEWARD DISHWASHER Primary Car e Provider Kalyan Galvan Unavailable Unavailable Lashae Trevino [facility] Unavailable [phone] Eduardo Sharma MD Unavailable Rios Monteiro MD Unavailable [phone] Marcelo Artis-Aleyda Unavailable [phone] Rodrigo Man-C Unavailable [phone] Jeana-JdNoreen castro APRN STEWARD DISHWASHER Unavailable Sudha Greene NP Primary Care Provider Agatha NullM, Podiatry /Foot and Ankle Surgery Unavailable [facility] Unavailable Reason for Visit * Reason Onset Date Comments Symptoms 03/07/2012 uti Encounter Details Date Type Department Care Team (Late st Contact Info) Description 03/07/2012 [facility] [address] [place] [address] [place] [phone] Selma Good, SEAN STEWARD DISHWASHER 3305 [facility] [place] [address] Symptoms (uti) Social History Tobacco Use Types [...] as of this encounter Care Teams Cloth Feeder Relationship Specialty Start Date End Date Selma Good, SEAN STEWARD DISHWASHER [address] [place] [address] [place] [address] PCP - General 04/09/08 04/07/15 Vanda Guerrero MD [address] [place] [address] [place] [address] PCP - General Internal Medicine 04/08/15 01/08/19 Vanda Guerrero MD [address] [place] [address] [place] [address] PCP - Assigned PCP 07/24/16 06/15/18 Noreen Flores APRN STEWARD DISHWASHER [address] [place] [address] [place] [address] PCP - Assigned PCP 06/16/18 08/13/18 Noreen Flores APRN STEWARD DISHWASHER [address] [place] [address] [place] [address] PCP - General Nurse Practitioner 01/09/19 12/12/21 Sudha Greene NP [address] [address] PCP - General 11/01/22 Noreen Flores APRN STEWARD DISHWASHER [address] [place] [address] [place] [address] Assigned PCP 06/16/18 05/26/22 Kalyan Galvan Personal Advocate & Liaison (PAL) 08/08/19 04/26/21 [facility] [address] [place] [address] [place] [phone] Pharmacist Pharmacist 10/14/19 12/01/20 Eduardo Sharma MD [address] [facility] [address] [place] [address] Assigned Sleep Provider 04/02/2005/07 Rios Monteiro MD [address] [place] [address] 393187 Assigned Musculoskeletal Provider 04/02/20 08/24/20 Marcelo Artis, PA-C [address] [facility] [address] [place] [address] Assigned Musculoskeletal Provider 08/25/20 08/20/21 Rodrigo Man PA-C [address] [facility] 450 [place] [address] Assigned Surgical Provider 08/25/20 11/27/20 Noreen Flores APRN STEWARD DISHWASHER 3305 [facility] [place] [address] Assigned PCP 08/05/22 03/16/23 Agatha Null DPM, Podiatry/Foot and Ankle Surgery [address] [place] [place] [address] Assigned Musculoskeletal Provider 11/04/22 Clinic - Nita Pringle [facility] 3305 [facility] DAVID ORDOÑEZ [id number] Assigned PCP 07/05/23 documented as of this encounter
--- OUTSIDE RECORDS SUMMARY | 2023-10-01 10:29 | XMS_ITS | Encounter Summary ---
Author Name Unknown Organization [facility] Address [address], [place] [address] Care Team Providers Care Operator Engineer Name Role Phone Unassigned, Provider Primary Care Provider Unava ilable Encounter Details Date Type Department Care Team (Latest Contact Info) Description 07/26/2004 [facility] Gavin Justice MD [address] [place] [address] Social History Tobacco Use Types Packs/Day Years [...] * Jerome Garg - 07/26/2004 12:00 AM TRAVEL TICKETING REVIEWER DATE OF SURGERY: 07/26/2004 STAFF SURGEON: Gavin [...] nerve impingement. Therefore, she is referred to [facility] pain clinic for evaluation for [...] Justice MD Transcribed: 07/26/2004 14:26:15 Doc #: [id number] cc: Jose Colin DO, Primary/Referring DO NOT SIGN UNLESS PRESENT FOR PROCEDURE I attest that I was present for and participated in the ma portions of this procedure(s) in compliance with the Health Care Financing Administration Teaching Physician Guidelines. Signed Date [facility]ions Staff Physician 1 Page 2 Patient Name: PADMINI CHOI Visit Date: 07/26/2004 OUTPATIENT OPERATIVE REPORT CONFIDENTIAL MEDICAL RECORD [facility] [address] [place] [address] Page 1 Patient: [facility]ADMIN[id number] Date of : 1965 Visit Date: 07/26/2004 OUTPATIENT OPERATIVE REPORT documented in this encounter Plan of Treatment Not on file documented as of this encounter Visit Diagnoses Not on filedocumented in this encounter Care Teams Operator Engineer Relationship Specialty Start Date End Date Unassigned, Provider [address] [place] [address] PCP - General 09/18/08 documented as of this encounter
--- OUTSIDE RECORDS SUMMARY | 2023-10-01 10:29 | XMS_ITS | Clinical Summary ---
Author Name Unknown Organization [facility] Address [address] [place] [address] Care Team Providers Care News Assistant Name Role Phone Unassigned, Provider Primary Care Provider Unava ilable Source Comments You are receiving this document as you are listed as the primary care provider,follow-up provider, or the patient has been referred to you for consultation.This is in compliance with the Medicare and[facility] Cent[facility] EHR Incentive Program,which states Providers who transition their patient to another setting of careor provider of care or refers their patient to another provider of care shouldprovide summary care record for each transition of care or referral. [facility] Allergies Active Allergy Reactions Criticality Noted Date [...] 03/09/2011,04/08/2010, 8 Influenza IIV4 (Quadrivalent ) 0.5mL (38152) 06/12/2017,03/23/2016,04/08/2015, 013 PPSV23 (Pneumovax) 10/06/2014 Pfizer Monovalent [...] Comments Blood Pressure 120/62 05/25/2021 11:09 AM BOTTOM TURNING LATHE TENDER Pulse 59 05/25/2021 11:09 AM BOTTOM TURNING LATHE TENDER Temperature 36.7 ??C (98.1 ??F) 05/25/2021 1 1:09 AM BOTTOM TURNING LATHE TENDER Respiratory Rate 16 08/23/2007 1:13 PM CDT Oxygen Saturation 97% 08/23/2007 1:13 PM CDT Inhaled Oxygen Concentration - - Weight 78.8 kg (173 lb 12.8 oz) 021 11:09 AM BOTTOM TURNING LATHE TENDER Height 160 cm (5' 3) 08/23/2007 1:13 [...] this topic Medical Devices Implanted Type Area Road Equipment Operator Device Identifier Shelf Expiration Date Model / Serial / Lot Kit Infuse Bone Graft Sm - [id number] Implanted:Qty : 1 on 04/15/2007 at [facility] Left: BACK [employer] [id number] / / [id number] Bone Canc Crushed 60cc - [id number] Implanted:Qty : 1 on 04/15/2007 at [facility] Left: BACK House [id number] / OTS [id number] / Device Cage Ray Thrd 12x26 - [id number] Implanted:Qty : 2 on 04/15/2007 at [facility] Left: BACK Henna 7-1226 / / [id number] Cage Ray 94c57et - [id number] Implanted:Qty : 1 on 04/15/2007 at [facility] Left: BACK House 05/11/2008 7-1426 / / [id number] Procedures Procedure Name Priority Date/Time Associated Diagnosis [...] 8:33 AM CDT) Cholesterol 188 <200 mg/dl [facility] Triglyceride 95 <200 mg/dl [facility] HDL 46 >35 mg/dl [facility] LDL, Calc. 123 mg/dl [facility] Hours Fasting 12 hours [facility] 10/07/2005 8:33 AM CDT 10/07/2005 8:34 AM CDT Yun Flynn MD LAB_1 Performing Organization Address City/State/[facility] Phone Number [facility] [address] [place] [phone] * PAP TEST, ROUTINE (10/02/2005 12:00 AM CDT) Cytology, Pap (NOTE) Escape Wheel Tooth Cutter Cytology Report Patient Name: PADMINI CHOI Taken: [...] and less commonly, endometrial/uterin e abnormalities. ? [facility]/10/13/2005 Electronically Signed Out By ? Kelly Elmore MD ([id number]) Rakel Valle, ??CT (ASCP) ?Pap Smear History ?Date of Last Menstrual Period: ? 09/22/05 ?Contraceptive History: ?Not Stated/Unknown ?Other Clinical Conditions: ?LAST PAP: N/A HPV reflex testing requested with interpretation of ASCUS ? [facility] 10/02/2005 10/06/2005 9:5 8 AM CDT Yun Flynn MD LAB_1 [place], [place] [phone] * MAMMOGRAM, SCREENING (05/15/2003) Anatomical Region Laterality Modality Breast Other Narrative Transcriptions Dusty Gonsalves - 05/15/2003 12:00 AM CSTCLINICAL DATA: Screening. EXAMINATION: Bilateral mammogram, 05/15/03. ACR BIRADS CATEGORY 1 - NEGATIVE MAMMOGRAM. FINDINGS: Nothing for malignancy. Dusty Gonsalves MD 10:42 A cc: AUDREY [facility] Radiology SP Blank Perez MATERIALS MANAGEMENT MANAGER, IRONMOLDER RAD_BI from Last 3 Months or Most Recently Relevant to Health Maintenance Advance Directives * Full Code (Latest Code Status on File) Date Activated Date Inactivated Comments 04/15/2007 8:03 AM 04/19/2007 8:53 PM Care Teams News Assistant Relationship Specialty Start Date End Date Unassigned, Provider [address] [place] [address] PCP - General 09/18/08
--- OUTSIDE RECORDS SUMMARY | 2023-10-01 10:29 | XMS_ITS | Encounter Summary ---
Author Name Unknown Organization [facility] Address [address] [place] [address] Care Team Providers Care Check Inspector Name Role Phone Unassigned, Provider Primary Care Provider Unava ilable Encounter Details Date Type Department Care Team (Late st Contact Info) Description 08/23/2004 [facility] [address] [place] [address] Gavin Justice MD [address] [place] [address] [id number] Social History Tobacco Use Types Packs/Day Years [...] * Jerome Garg - 08/23/2004 12:00 AM PAPERHANGER APPRENTICE DATE OF SURGERY: August 23, 2004. STAFF [...] Justice MD Transcribed: 08/24/2004 07:37:56 Doc #: [id number] cc: Jose Colin, DO, Referring DO NOT SIGN UNLESS PRESENT FOR PROCEDURE I attest that I was present for and participated in the ma portions of this procedure(s) in compliance with the Health Care Financing Administration Teaching Physician Guidelines. Signed Date [facility] Staff Physician 1 Page 2 Patient Name: PADMINI CHOI Visit Date: 08/23/2004 OUTPATIENT OPERATIVE REPORT [facility]IDENTIAL MEDICAL RECORD [address] [id number] Page 1 Patient: PADMINI CHOI Location: PAIN N: [id number] Date of : 1965 Visit Date: 08/23/2004 OUTPATIENT OPERATIVE REPORT documented in this encounter Plan of Treatment Not on file documented as of this encounter Visit Diagnoses Not on filedocumented in this encounter Care Teams Check Inspector Relationship Specialty Start Date End Date Unassigned, Provider [address] [place] [address] PCP - General 09/18/08 documented as of this encounter
--- NOTE | 2023-10-01 11:00 | CT_ITS ---
Patient: PADMINI WONG Facility:?[facility] Patient ID:?[id number] Site Patient ID:?[id number]. Site :?1965 Study:?CT-Abdomen/Pelvis 95CC ISOVUE 370 AND WATER PREP-10/01/2023 11:13:19 AM Ordering Physician:?DR. MADRIGAL Final Report: INDICATION: Right upper abdominal and flank pain 3-4 weeks TECHNIQUE: Volumetric helical scanning of the abdomen and pelvis was performed with 95 cc of Isovue 370 contrast material IV. Coronal and sagittal reconstructions were obtained. COMPARISON: None. FINDINGS: Colonic diverticulosis is demonstrated. There is no evidence of diverticulitis. There is a moderate amount of stool throughout the colon. Stool is also noted in the distal ileum. A normal retrocecal appendix is noted. Fatty change is demonstrated in the liver. The liver is normal in size and shape. The bile ducts are within normal limits. The spleen and pancreas are unremarkable. A nonspecific 1.7 cm left adrenal nodule is demonstrated. The right adrenal is normal. The kidneys are unremarkable. No lymphadenopathy is evident. No free fluid is demonstrated. The uterus and ovaries are unremarkable. The lung bases are essentially clear, and heart size is normal. IMPRESSION: 1. Colonic diverticulosis but no evidence of diverticulitis. 2. Suspected constipation. 3. Fatty change in the liver. 4. Nonspecific 1.7 cm left adrenal nodule. Comparison with any prior exam recommended. Otherwise, consider follow up CT utilizing an adrenal adenoma protocol. Please note that all CT scans at this facility use dose modulation, iterative reconstruction, and/or weight-based dosing when appropriate to reduce radiation dose to as low as reasonably achievable. Dictated by Dion Benedict MD @ 10/02/2023 7:40:02 AM Signed by:?Dion Benedict MD @10/02/2023 7:40:02 AM (Electronic Signature)
== END 2023-10-01 10:22 | disposition home or self-care (01) ==
LOC: CT 10:21
PROVIDERS: PCP Nurse Practitioner Family; Visit Provider Nurse Practitioner Family
DX: R10.11 Right upper quadrant pain (principal); K57.30 Diverticulosis of large intestine without perforation or abscess without bleeding; K76.0 Fatty (change of) liver, not elsewhere classified; E27.9 Disorder of adrenal gland, unspecified
CPT/HCPCS: 74177; Q9967

== ENCOUNTER 2023-10-18 09:45 | Outpatient (CLI) | payer BC, SELFPAY ==
--- OUTSIDE RECORDS SUMMARY | 2023-10-18 09:47 | XMS_ITS | Clinical Summary ---
Author Name Unknown Organization [facility] Address [place], [place] [address] Care Team Providers Care Fisher Swordfish Name Role Phone Sudha Greene NP Primary Care Provider [phone] Allergies Active Allergy Reactions Criticality Noted Date [...] CDT Oxygen Saturation 97% 08/12/2020 6:13 PM TRENCH PIPE LAYER Inhaled Oxygen Concentration - - Weight 79.4 [...] 16 Negative Negative 11/04/2021 10:35 AM CDT [facility] TYPE 18 Negative Negative 11/04/2021 10:35 AM CDT [facility] OTHER HIGH RISK TYPES Negative Negative 11/04/2021 10:35 AM CDT [facility] TRA LABORATORY Tissue (Other) Client Collect / Unknown 10/14/2021 10:54 AM CDT 11/02/2021 5:19 PM CDT Narrative [facility] - 11/04/2021 10:35 AM CDT HPV types 16, 18, 31, 33, 35, 39, 45, 51, 52, 56, 58, 59, 66 and 68 DNA were undetectable or below the pre-set threshold. Methodology: Alaina Basilio 4800 HPV Test Doctor Unknown [facility]CROBIOLOGY [facility] [address] [place] [address], from Last 3 Months or Most Recently Relevant to Health Maintenance Care Teams Fisher Swordfish Relationship Specialty Start Date End Date Sudha Greene NP [address] [place] [address] DustinDAVID [address] (work) PCP - General Emergency Medicine 03/27/22
--- OUTSIDE RECORDS SUMMARY | 2023-10-18 09:48 | XMS_ITS ---
Author Name Unknown Organization [facility] Address [address] [place] [address] Care Team Providers Care Workers Compensation Coordinator Name Role Phone Unavailable Unavailable Unavailable Surgery Details Not on file Complications Check Surgery Details section. Procedure Estimated Blood Loss Check Surgery Details section. Procedure Findings Check Surgery Details section. Procedure Specimens Taken Check Surgery Details section.
--- OUTSIDE RECORDS SUMMARY | 2023-10-18 09:48 | XMS_ITS | Clinical Summary ---
Author Name Unknown Organization [facility] Address [address] [place] [address] Care Team Providers Care Transitional Living Specialist Name Role Phone Unavailable Primary Care Provider Unavailabl e Source Comments Patient records contain information from all sites at [facility]. For routine questions regarding patient records, call [phone] during business hours, M-F 8:00 AM - 5:00 PM Central Time. Record requests for emergency care only can be directed to [phone] at any time.[facility] Allergies Active Allergy Reactions Criticality Noted Date [...] TO DIRECT LDL Routine 08/08/2019 10:17 AM BROACH GRINDER BI BREAST DIAGNOSTIC BILATERAL WITH TOMOSYNTHESIS Routine 09/30/2015 2:11 PM CDT from Last 3 Months or Most Recently Relevant to Health Maintenance
--- OUTSIDE RECORDS SUMMARY | 2023-10-18 09:48 | XMS_ITS | Clinical Summary ---
Author Name Unknown Organization [facility] Address [address] [place] [address] Care Team Providers Care Clinical Nurse Occupational Medicine Name Role Phone Sudha Greene NP Primary Care Provider [phone] Agatha Null DPM, Podiatry /Foot and Ankle Surgery Unavailable [facility] Unavailable Allergies Active Allergy Reactions Criticality Noted [...] sprayIndications:Al lergic rhinitis, unspecified seasonality, unspecified trigger Clyde 1-2 sprays into both nostrils daily 16 [...] use. Address next visit Family history of ID (myocardial infarction) 08/2007 Overview: At early age, father ID at age 40 Resolved Problems Problem Noted [...] 4 Kidney Disease Brother 5 Cardiovascular Father ID early 40s, almodovar bsequent bipass Diabetes Father Hypertension Father Lipids Father Diabetes Maternal Grandfather Hypertension Maternal Grandfather Lipids Maternal Grandfather Diabetes Maternal Grandmother Hypertension Maternal Grandmother Lipids Maternal Grandmother Arthritis Mother OA Cardiovascular Mother ID age 72 Diabetes Mother Type II Hypertension [...] Comments Blood Pressure 128/80 05/11/2023 1:07 PM DRAG OUT WORKER Pulse 87 02/26/2023 3:58 PM CDT Temperature 36.2 ??C (97.2 ??F) 02/26/2023 3:58 PM CD T Respiratory Rate 12 02/26/2023 3:13 PM CDT Oxygen Saturation 95% 02/26/2023 4:00 PM CDT Inhaled Oxygen Concentration - - Weight 87.1 kg (192 lb) 05/11/2023 1:07 PM DRAG OUT WORKER Height 156 cm (5' 1.42) 02/26/2023 11:19 [...] 2023 06/07/2022, 06/24/2021, 09/24/2020, Additional history exists RSV VACCINE ( & 60+) (1 - 1-dose 60+ series) 2023 ADVANCE CARE PLANNING 07/25/2023 07/25/2018 INFLUENZA VACCINE (Season Ended) 2024 06/07/2022, 08/08/2019 (Declined), 06/12/2017, Additional history exists DTAP/TDAP/TD IMMUNIZATION (2 - Td or Tdap) [...] - HIM SCAN 05/17/2020 1 2:00 AM DRAG OUT WORKER HEMOGLOBIN A1C Routine 01/13/2020 8:55 AM CDT Type 2 diabetes mellitus with complication, without long-term current use of insulin (H) FECAL COLORECTAL CANCER SCREEN FIT Routine 01/12/2020 8:00 AM CDT Health care maintenance ALBUMIN RANDOM URINE QUANTITATIVE Routine 08/08/2019 10:17 AM DRAG OUT WORKER Routine general medical examination at a health care facility LIPID REFLEX TO DIRECT LDL PANEL Routine 08/08/2019 10:17 AM DRAG OUT WORKER Routine general medical examination at a [facility] care facility MA SCREENING DIGITAL BILATERAL Routine 09/03/2018 10:13 AM CDT Health care maintenance HIV ANTIGEN ANTIBODY COMBO Routine 04/09/2018 10:09 AM CDT Encounter for screening for HIV HEPATITIS C SCREEN REFLEX TO HCV RNA QUANT AND GENOTYPE Routine 09/25/2016 2:30 PM CDT Need for hepatitis C screening test HPV HIGH RISK TYPES DNA CERVICAL Routine 05/03/2016 12:17 PM DRAG OUT WORKER Cervical cancer screening PAP IMAGED THIN LAYER SCREEN Routine 05/03/2016 12:00 AM DRAG OUT WORKER Cervical cancer screening C FOOT EXAM Routine 10/06/2014 9:47 AM CDT Type 2 diabetes, HbA1C goal < 7% (H) from Last 3 Months or Most Recently Relevant to Health Maintenance Results * (ABNORMAL) Comprehensive metabolic panel (11/10/2020 2:29 PM CDT) Sodium 142 133 - 144 mmol/L 11/10/2020 7:51 PM CDT [facility] Potassium 4.0 3.4 - 5.3 mmol/L 11/10/2020 7:51 PM T [facility] Chloride 112(H) 94 - 109 mmol/L 11/10/2020 7:51 PM T [facility] Carbon Dioxide 27 20 - 32 mmol/L 11/10/2020 7:58 PM T [facility] Anion Gap 4 3 - 14 mmol/L 11/10/2020 7:58 PM T [facility] Glucose 96 70 - 99 mg/dL 11/10/2020 7:58 PM T [facility] Urea Nitrogen 14 7 - 30 mg/dL 11/10/2020 7:58 PM T [facility] Creatinine 0.74 0.52 - 1.04 mg/dL 11/10/2020 7:58 PM [facility] GFR Estimate >90 >60 mL/min/{1 .73_m2} 11/10/2020 7:58 PM [facility] Comment: Non GFR Calc Starting 05/28/2018, serum creatinine based estimated GFR (eGFR) will be calculated using the Chronic Kidney Disease Epidemiology Collaboration (CKD-EPI) equation. GFR Estimate If Black >90 >60 mL/min/{1 .73_m2} 11/10/2020 7:58 PM [facility] Comment: GFR Calc Starting 05/28/2018, serum creatinine based estimated GFR (eGFR) will be calculated using the Chronic Kidney Disease Epidemiology Collaboration (CKD-EPI) equation. Calcium 9.3 8.5 - 10.1 mg/dL 11/10/2020 7:58 PM T [facility] Bilirubin Total 0.6 0.2 - 1.3 mg/dL 11/10/2020 8:01 PM T [facility] Albumin 3.6 3.4 - 5.0 g/dL 11/10/2020 8:01 PM T [facility] Protein Total 7.2 6.8 - 8.8 g/dL 11/10/2020 8:01 PM T [facility] Alkaline Phosphatase 143 40 - 150 U/L 11/10/2020 8:01 PM CDT [facility] ALT 23 0 - 50 U/L 11/10/2020 8:01 PM CDT [facility] AST 16 0 - 45 U/L 11/10/2020 8:01 PM CDT [facility] Blood 11/10/2020 2:29 PM CDT 11/10/2020 3:04 PM CDT Kavin Fitzgerald PA-C LAB - BLO OD ORDERABLES [facility] [address] [place] [address] * EYE EXAM - HIM SCAN (05/17/2020 12:00 AM DRAG OUT WORKER) Pathologist [facility] RETINOPATHY NEGATIVE 05/17/2020 Narrative Lauren Posada - 05/17/2020 12:00 AM DRAG OUT WORKER DIABETIC EYE EXAM [facility] Provider Outside OTHER * (ABNORMAL) A1C FUTURE 1yr (01/13/2020 8:55 AM CDT) [facility] Hemoglobin A1C 6.1(H) 0 - 5.6 % 01/13/2020 9:27 AM CDT [facility] Comment: Normal <5.7% Prediabetes 5.7-6.4% ??Diabetes 6.5% or higher - adopted from ADA consensus guidelines. Blood specimen (specimen) 01/13/2020 8:55 AM CDT 01/13/2020 8:56 AM CDT Noreen Flores APRN BROKER ASSISTANT LAB - BLOOD ORDERABLES [facility] [address] [place] [address] * Fecal colorectal cancer screen (FIT) (01/12/2020 8:00 AM CDT) [facility] Occult Blood Scn FIT Negative NEG^Negati ve 01/18/2020 4:19 PM CDT [facility] Stool specimen (specimen) 01/12/2020 8:00 AM CDT 01/18/2020 1:16 PM CDT Noreen Flores APRN, CNP LAB - STOOLS ORDERABLES [facility] [address] [place] [address] * Albumin Random Urine Quantitative with Creat Ratio (08/08/2019 10:17 AM DRAG OUT WORKER) Creatinine Urine 154 mg/dL 08/09/2019 1:54 PM DRAG OUT WORKER [facility] Albumin Urine mg/L 11 mg/L 08/09/2019 1:59 PM DRAG OUT WORKER [facility] Albumin Urine mg/g Cr 7.14 0 - 25 mg/g Cr 08/09/2019 1:59 PM DRAG OUT WORKER [facility] Urine specimen (specimen) 08/08/2019 10:17 AM DRAG OUT WORKER 08/08/2019 10:18 AM DRAG OUT WORKER Noreen Flores APRN, CNP LAB - URINE ORDERABLES [facility] [address] [place] [address] * (ABNORMAL) Lipid panel reflex to direct LDL Fasting (08/08/2019 10:17 AM DRAG OUT WORKER) Cholesterol 180 <200 mg/dL 08/08/2019 7:47 PM [facility] Triglycerides 153(H) <150 mg/dL 08/08/2019 7:47 PM [facility] Comment: Borderline high: ??150-199 mg/dl High: ? 200-499 mg/dl Very high: ? >499 mg/dl HDL Cholesterol 46(L) >49 mg/dL 0 7:47 PM DRAG OUT WORKER [facility] LDL Cholesterol Calculated 103(H) <100 mg/dL 08/08/2019 7:47 PM [facility] Comment: Above desirable: ??100-129 mg/dl Borderline High: ??130-159 mg/dL High: ? 160-189 mg/dL Very high: ? >189 mg/dl Non HDL Cholesterol 134(H) <130 mg/dL 08/08/2019 7:47 PM [facility] Comment: Above Desirable: ??130-159 mg/dl Borderline high: ??160-189 mg/dl High: ? 190-219 mg/dl Very high: ? >219 mg/dl Blood specimen (specimen) 08/08/2019 10:17 AM DRAG OUT WORKER 08/08/2019 10:18 AM DRAG OUT WORKER Noreen Flores APRN BROKER ASSISTANT LAB - BLOOD ORDERABLES Performing Organization Address City/State/[facility] Co de Phone Number [facility] [address] [place] [address], [facility] [phone] * *MA Screening Digital Bilateral (09/03/2018 10:13 AM CDT) Anatomical Region Laterality Modality Breast Bilateral Mammography Impressions 09/03/2018 10:30 AM CDT IMPRESSION: BI-RADS CATEGORY: 1 - ??Negative. RECOMMENDED FOLLOW-UP: Annual Mammography. PANCHITO DESIR MD Narrative 09/03/2018 10:30 AM CDT SCREENING MAMMOGRAM, BILATERAL, DIGITAL w/CAD, 09/03/2018 10:29 AM BREAST DENSITY: Scattered fibroglandular densities. CLINICAL INFORMATION: Breast screening. ??[facility], 09/30/15, 04/16/15, 05/27/13 FINDINGS: Negative. Stable exam. Screening exam in one year recommended. Procedure Note Panchito Desir MD - 09/03/2018 SCREENING MAMMOGRAM, BILATERAL, DIGITAL w/CAD, 09/03/2018 10:29 AM BREAST DENSITY: Scattered fibroglandular densities. CLINICAL INFORMATION: Breast screening. [facility], 09/30/15, 04/16/15, 05/27/13 FINDINGS: Negative. Stable exam. Screening exam in one year recommended. IMPRESSION: BI-RADS CATEGORY: 1 - Negative. RECOMMENDED FOLLOW-UP: Annual Mammography. PANCHITO DESIR MD Noreen Flores APRN, CNP IMG MAMMOGRAPHY ORDERABLES * HIV Antigen Antibody Combo (04/09/2018 10:09 AM CDT) HIV Antigen Antibody Combo Nonreactive NR^Nonrea ctive 04/10/2018 7:29 AM CDT [facility] Comment:HIV-1 p24 Ag & HIV-1 /HIV-2 Ab Not Detected Blood specimen (specimen) 04/09/2018 10:09 AM CDT 04/09/2018 10:15 AM CDT Noreen Flores APRN, CNP LAB - BLOOD ORDERABLES [facility] [address] * Hepatitis C Screen Reflex to HCV RNA Quant and Genotype (09/25/2016 2:30 PM CDT) Pathologist [facility] Hepatitis C Antibody Nonreactive Assay performance characteristics have not been established for newborns, infants, and children NR [facility] Blood specimen (specimen) 09/25/2016 2:30 PM CDT 09/26/2016 11:29 AM CDT Vanda Borja MD LAB - BLOOD ORDER ILDEFONSO [facility] [address] [place] [address] * HPV High Risk Types DNA Cervical (05/03/2016 12:17 PM DRAG OUT WORKER) HPV 16 DNA Negative NEG [facility] HPV 18 DNA Negative NEG [facility] Other HR HPV Negative NEG [facility] Final Diagnosis This patient's sample is negative [...] be regarded as investigational or for research. [facility] Specimen Description Cervical Cells C16 [address] [facility] Cervical Cells 05/03/2016 12 :17 PM DRAG OUT WORKER 05/03/2016 12:20 PM DRAG OUT WORKER Vanda Borja MD LAB - BLOOD ORDER ILDEFONSO [facility] [address] [place] [address] * Pap imaged thin layer screen with HPV - recommended age 30 - 65 years (select HPV order below) (05/03/2016 12:00 AM DRAG OUT WORKER) PAP RAMSEY Wren Report Patient Name: MEGAN WONG MR#: [id number] Specimen #: [id number] Collected: 05/03/2016 Received: 05/05/2016 Reported: 05/09/2016 08:26 [...] (ASCP) Processed and screened at [facility] CLINICAL HISTORY: LMP: 10/30/11 Post Menopausal, Previous normal pap Date of Last Pap: 10/06/14, Papanicolaou Test Limitations: ??Cervical cytology is a screening test with limited sensitivity; regular screening is critical for cancer prevention; Pap tests are primarily effective for the diagnosis/preventi on of squamous cell carcinoma, not adenocarcinomas or other cancers. TESTING LAB LOCATION: [address] ??[address] COLLECTION SITE: Client: ??[facility] Location: [facility] (R) COPATH Cytologic material (specimen) 05/03/2016 05/05/2016 10:22 AM DRAG OUT WORKER Vanda Borja MD LAB - OPTIME CLIN ICAL SPECIMEN COPATH from Last 3 Months or Most Recently Relevant to Health Maintenance Care Teams Clinical Nurse Occupational Medicine Relationship Specialty Start Date End Date Sudha Greene NP [facility] [address] [place] [address] PCP - General 11/01/22 Agatha Null, MARÍA, Podiatry/Foot and Ankle Surgery [address] [place] [address] Assigned Musculoskeletal Provider 11/04/22 Clinic - [facility] Pringle [address] [address] Assigned PCP 07/05/23
--- OUTSIDE RECORDS SUMMARY | 2023-10-18 09:48 | XMS_ITS | Referral Summary ---
Author Name Unknown Organization [facility] Address [address] [place] [address] Care Team Providers Care Gasket Inspector Name Role Phone Unavailable Primary Care Provider Unavailabl e Source Comments Patient records contain information from all sites at [facility]. For routine questions regarding patient records, call [phone] during business hours, M-F 8:00 AM - 5:00 PM Central Time. Record requests for emergency care only can be directed to [phone] at any time.[facility] Allergies Active Allergy Reactions Criticality [...] TO DIRECT LDL Routine 08/08/2019 10:17 AM PIN TICKET MACHINE OPERATOR BI BREAST DIAGNOSTIC BILATERAL WITH TOMOSYNTHESIS Routine 09/30/2015 2:11 PM CDT from Last 3 Months or Most Recently Relevant to Health Maintenance [facility] DAV[place] Carl [phone]
--- OUTSIDE RECORDS SUMMARY | 2023-10-18 09:49 | XMS_ITS | Encounter Summary ---
Author Name Unknown Organization [place] Address [address] [place] [address] Care Team Providers Care Awake Overnight Monitor Name Role Phone Noreen Flores APRN, CNP Unavailable Noreen Flores APRN, CNP Primary Car e Provider Kalyan Galvan Unavailable Unavailable Lashae Trevino [facility] Unavailable Eduardo Sharma MD Unavailable Rios Monteiro MD Unavailable [phone] Marcelo Artis PA-C Unavailable [phone] Rodrigo Man PA-C Unavailable [phone] Noreen Flores APRN, CNP Unavailable Sudha Greene NP Primary Care Provider Agatha Null DPM, Podiatry /Foot and Ankle Surgery Unavailable Clinic - [facility] Unavailable Reason for Visit * Reason Comments Medication Refill Encounter Details Date Type Department Care Team (Late st Contact Info) Description 07/10/2020 Refill [facility] [place] [address] [facility] [place] [address] Noreen Flores APRN CNP [address] [facility] [place] [address] Medication Refill Social [...] Answer Date Recorded PHQ-2 Score 2 07/25/2018 [facility]at ional Health - Occupational [...] Desirae Champagne RN - 07/13/2020 11:10 AM THREADING MACHINE SETTER Routing refill request to provider for review/approval because: Patient taking 8-10 sumatriptan a month. Desirae Champagne RN on 07/13/2020 at 11:11 AM ADING MACHINE SETTER * Telephone Encounter - Lainey Wells - 07/12/2020 2:22 PM CST The pt called back and she says that she takes anywhere from 8-10 a month. Lainey Wells on 07/12/2020 at 2:25 PM ADING MACHINE SETTER * Telephone Encounter - Lainye Wells - 07/12/2020 10:59 AM CST 1st attempt l/m. Lainey Wells on 07/12/2020 at 10:59 AM ADING MACHINE SETTER * Telephone Encounter - Desirae Champagne RN - 07/12/2020 10:02 AM THREADING MACHINE SETTER Please call patient and see how many doses of sumatriptan patient has used in the past month. Should be using 8 doses or fewer per month. Desirae Champagne RN on 07/12/2020 at 10:07 AM ADING MACHINE SETTER documented in this encounter Plan of [...] documented as of this encounter Care Teams Awake Overnight Monitor Relationship Specialty Start Date End Date Noreen Flores APRN SOFTBALL WINDER [address] [facility] [place] [address] PCP - General Nurse Practitioner 01/09/19 12/12/21 Sudha Greene NP [address] [address] PCP - General 11/01/22 Noreen Flores APRN SOFTBALL WINDER [address] [place] [address] [place] [address] Assigned PCP 06/16/18 05/26/22 Kalyan Galvan Personal Advocate & Liaison (PAL) 08/08/19 04/26/21 [facility] [address] [place] [address] [place] [address] Pharmacist Pharmacist 10/14/19 12/01/20 Eduardo Sharma MD [address] [address] Assigned Sleep Provider 04/02/2005/07 [place] [address] [address] Assigned Musculoskeletal Provider 04/02/20 08/24/20 Marcelo Artis PA-C [address] [address] Assigned Musculoskeletal Provider 08/25/20 08/20/21 Rodrigo Man PA-C [address] [place] [address] Assigned Surgical Provider 08/25/20 11/27/20 Noreen Flores APRN SOFTBALL WINDER [address] [facility] [place] [address] Assigned PCP 08/05/22 03/16/23 Agatha Null DPM, Podiatry/Foot and Ankle Surgery [address] [place] [address] [place] [address] Assigned Musculoskeletal Provider 11/04/22 Clinic - [facility] [address] [facility] [place] [id number] Assigned PCP 07/05/23 documented as of this encounter
--- OUTSIDE RECORDS SUMMARY | 2023-10-18 09:49 | XMS_ITS | Encounter Summary ---
Author Name Unknown Organization [place] Address [address] [place] [address] Care Team Providers Care Manager Truck Name Role Phone Noreen Flores APRN CULLED FRUIT PACKER Unavailable Noreen Flores APRN CULLED FRUIT PACKER Primary Car e Provider Kalyan Galvan Unavailable Unavailable Lashae Trevino [facility] Unavailable [phone] Eduardo Sharma MD Unavailable Marcelo Artis PA-C Unavailable [phone] Rodrigo Man PA-C Unavailable [phone] Noreen Flores APRN CULLED FRUIT PACKER Unavailable Sudha Greene NP Primary Care Provider Agatha Null DPM, Podiatry /Foot and Ankle Surgery Unavailable [facility] - [place] Unavailable Encounter Details Date Type Department Care Team (Late st Contact Info) Description 10/20/2020 [facility] [address] [facility] [address] [place] [address] Lainey [place] Social [...] Answer Date Recorded PHQ-2 Score 2 07/25/2018 [facility] of Occupat ional Health - Occupational [...] as of this encounter Care Teams Manager Truck Relationship Specialty Start Date End Date Noreen Flores APRN CULLED FRUIT PACKER [address] [facility] [place] [address] PCP - General Nurse Practitioner 01/09/19 12/12/21 Sudha Greene, MAURICIO [address] [address] PCP - General 11/01/22 Noreen Flores APRN CULLED FRUIT PACKER [address] [place] [address] [place] [address] Assigned PCP 06/16/18 05/26/22 Kalyan Galvan Personal Advocate & Liaison (PAL) 08/08/19 04/26/21 Lashae Trevino, [facility] [place] [address] Pharmacist Pharmacist 10/14/19 12/01/20 Eduardo Sharma MD [address] [place] [address] Assigned Sleep Provider 04/02/2005/07 Marcelo Artis PA-C [address] [facility] [address] [place] [address] Assigned Musculoskeletal Provider 08/25/20 08/20/21 Rodrigo Man PA-C [address] [place] [address] [place] [address] Assigned Surgical Provider 08/25/20 11/27/20 Noreen Flores APRN CULLED FRUIT PACKER [address] [facility] [place] [address] Assigned PCP 08/05/22 03/16/23 Agatha Null DPM, Podiatry/Foot and Ankle Surgery [address] [place] [address] Assigned Musculoskeletal Provider 11/04/22 Clinic - [facility] [address] [facility] [place] [id number] Assigned PCP 07/05/23 documented as of this encounter
--- OUTSIDE RECORDS SUMMARY | 2023-10-18 09:49 | XMS_ITS | Encounter Summary ---
Author Name Unknown Organization [place] Address [address] [place] [address] Care Team Providers Care Fiber Designer Name Role Phone Noreen Flores APRN TANNING SOLUTION MAKER Unavailable Noreen Flores APRN TANNING SOLUTION MAKER Primary Car e Provider Kalyan Galvan Unavailable Unavailable Lashae Trevino [facility] Unavailable Eduardo Sharma MD Unavailable Marcelo Artis PA-C Unavailable Rodrigo Man PA-C Unavailable [phone] Noreen Flores APRN TANNING SOLUTION MAKER Unavailable Sudha Greene NP Primary Care Provider Agatha Null DPM, Podiatry /Foot and Ankle Surgery Unavailable Clinic - [facility] Unavailable Reason for Visit * Reason Onset Date Comments Refill Request 09/24/2020 zolpidem (AMBIEN ) 5 MG tablet Encounter Details Date Type Department Care Team (Late st Contact Info) Description 09/24/2020 Iraj Moya [facility] [place] [address] [place] [address] Noreen Flores APRN TANNING SOLUTION MAKER [address] [facility] [place] [address] Refill Request (zolpidem (AMBIEN) [...] Answer Date Recorded PHQ-2 Score 2 07/25/2018 [facility] [place] of Occupat ional Health - Occupational Stress [...] documented as of this encounter Care Teams Fiber Designer Relationship Specialty Start Date End Date Noreen Flores APRN TANNING SOLUTION MAKER [address] [place] [address] [place] [address] PCP - General Nurse Practitioner 01/09/19 12/12/21 Sudha Greene, MAURICIO [address] [address] PCP - General 11/01/22 Noreen Flores APRN TANNING SOLUTION MAKER [address] [place] [address] [place] [address] Assigned PCP 06/16/18 05/26/22 Kalyan Galvan Personal Advocate & Liaison (PAL) 08/08/19 04/26/21 Lashae Trevino, [facility] [address] [place] [address] Pharmacist Pharmacist 10/14/19 12/01/20 Eduardo Sharma MD [address] [place] [address] Assigned Sleep Provider 04/02/2005/07 Marcelo Artis PA-C [address] [facility] 300 [place] [address] Assigned Musculoskeletal Provider 08/25/20 08/20/21 Rodrigo Man PA-C [address] [facility] 450 [place] [address] Assigned Surgical Provider 08/25/20 11/27/20 Noreen Flores APRN CNP [address] [place] [address] [place] [address] Assigned PCP 08/05/22 03/16/23 Agatha Null DPM, Podiatry/Foot and Ankle Surgery [address] [place] [address] [address] [place] [address] Assigned Musculoskeletal Provider 11/04/22 [facility] - [facility] [place] [address] [place] [address] [place] [address] Assigned PCP 07/05/23 documented as of this encounter
--- OUTSIDE RECORDS SUMMARY | 2023-10-18 09:49 | XMS_ITS | Encounter Summary ---
Author Name Unknown Organization [place] Address [address] [place] [address] Care Team Providers Care Radiation Officer Name Role Phone Noreen Florse APRN PRODUCT DEVELOPMENT DIRECTOR Unavailable Noreen Flores APRN PRODUCT DEVELOPMENT DIRECTOR Primary Car e Provider Kalyan Galvan Unavailable Unavailable Lashae Trevino [facility] Unavailable [phone] Eduardo Sharma MD Unavailable Rios Monteiro MD Unavailable Marcelo Artis PA-C Unavailable [phone] Rodrigo Man PA-C Unavailable [phone] Noreen Flores APRN PRODUCT DEVELOPMENT DIRECTOR Unavailable Sudha Greene NP Primary Care Provider Agatha Null DPM, Podiatry /Foot and Ankle Surgery Unavailable Clinic - [facility] Unavailable Encounter Details Date Type Department Care Team (Late st Contact Info) Description 07/15/2020 Myra Moya [facility] [place] [address] [place] [address] Noreen Flores APRN CNP [address] [facility] [place] [id number] Social History Tobacco Use Types Packs/Day Years [...] Answer Date Recorded PHQ-2 Score 2 07/25/2018 [facility] [place] of Occupat ional Health - Occupational Stress [...] COVID-19? No / Unsure 07/17/2020 1:32 PM IMPLEMENTATION ADVISOR documented as of this encounter Plan of [...] documented as of this encounter Care Teams Radiation Officer Relationship Specialty Start Date End Date Noreen Flores APRN PRODUCT DEVELOPMENT DIRECTOR [address] [place] [address] [place] [address] PCP - General Nurse Practitioner 01/09/19 12/12/21 Sudha Greene, MAURICIO [address] [address] PCP - General 11/01/22 Noreen Flores APRN PRODUCT DEVELOPMENT DIRECTOR [address] [place] [address] [place] [address] Assigned PCP 06/16/18 05/26/22 Kalyan Galvan Personal Advocate & Liaison (PAL) 08/08/19 04/26/21 Lashae Trevino, [facility] [address] [place] [address] Pharmacist Pharmacist 10/14/19 12/01/20 Eduardo Sharma MD 6[address] [place] [address] Assigned Sleep Provider 04/02/2005/07 [place] [address] [address] Assigned Musculoskeletal Provider 04/02/20 08/24/20 Marcelo Artis PA-C [address] [address] Assigned Musculoskeletal Provider 08/25/20 08/20/21 Rodrigo Man PA-C [address] [address] Assigned Surgical Provider 08/25/20 11/27/20 Noreen Flores APRN PRODUCT DEVELOPMENT DIRECTOR [address] [place] [address] [place] [address] Assigned PCP 08/05/22 03/16/23 Agatha Null DPM, Podiatry/Foot and Ankle Surgery [address] [facility] 300 [place] [address] Assigned Musculoskeletal Provider 11/04/22 [facility] - [facility] [place] [address] [place] [address] [place] [address] Assigned PCP 07/05/23 documented as of this encounter
--- OUTSIDE RECORDS SUMMARY | 2023-10-18 09:49 | XMS_ITS | Encounter Summary ---
Author Name Unknown Organization [facility] Address [address] [place] [address] Care Team Providers Care Medical Stenographer Name Role Phone Noreen Flores APRN DIALYSIS CHIEF EQUIPMENT TECHNICIAN Unavailable Noreen Flores APRN DIALYSIS CHIEF EQUIPMENT TECHNICIAN Primary Car e Provider Kalyan Galvan Unavailable Unavailable Eduardo Sharma MD Unavailable Marcelo Artis PA-C Unavailable Noreen Flores APRN DIALYSIS CHIEF EQUIPMENT TECHNICIAN Unavailable Sudha Greene NP Primary Care Provider Agatha NullM, Podiatry /Foot and Ankle Surgery Unavailable Clinic - [facility] Unavailable Reason for Visit * Reason Comments Medication Refill Encounter Details Date Type Department Care Team (Late st Contact Info) Description 01/06/2021 Refill [facility] [place] [address] [place] [address] Noreen Flores APRN DIALYSIS CHIEF EQUIPMENT TECHNICIAN [address] [facility] [place] [id number] Medication Refill Social History Tobacco Use Types [...] Answer Date Recorded PHQ-2 Score 0 11/10/2020 [facility] of Occupat ional Health - [...] as of this encounter Care Teams Medical Stenographer Relationship Specialty Start Date End Date Noreen Flores APRN DIALYSIS CHIEF EQUIPMENT TECHNICIAN [address] [place] [address] [place] [address] PCP - General Nurse Practitioner 01/09/19 12/12/21 Sudha Greene NP [address] [address] PCP - General 11/01/22 Noreen Flores APRN DIALYSIS CHIEF EQUIPMENT TECHNICIAN [address] [place] [address] [place] [address] Assigned PCP 06/16/18 05/26/22 Kalyan Galvan Personal Advocate & Liaison (PAL) 08/08/19 04/26/21 Eduardo Sharma MD [address] [facility] 103 [place] [address] Assigned Sleep Provider 04/02/2005/07 Marcelo Artis PARejiC [address] [place] [address] 300 [place] [address] Assigned Musculoskeletal Provider 08/25/20 08/20/21 Noreen Flores APRN DIALYSIS CHIEF EQUIPMENT TECHNICIAN [address] [place] [address] [place] [address] Assigned PCP 08/05/22 03/16/23 Agatha Null, MARÍA, Podiatry/Foot and Ankle Surgery [address] [place] [address] Assigned Musculoskeletal Provider 11/04/22 [facility] - [place] [address] [id number] Assigned PCP 07/05/23 documented as of this encounter
--- OUTSIDE RECORDS SUMMARY | 2023-10-18 09:49 | XMS_ITS | Encounter Summary ---
Author Name Unknown Organization [place] Address [address] [place] [address] Care Team Providers Care Delivery Aide Name Role Phone Noreen Flores APRN, CNP Unavailable Noreen Flores APRN, CNP Primary Car e Provider Kalyan Galvan Unavailable Unavailable Lashae Trevino [facility] Unavailable Eduardo Sharma MD Unavailable Rios Monteiro MD Unavailable [phone] Marcelo Artis PA-C Unavailable Rodrigo Man PA-C Unavailable [phone] Noreen Flores APRN, CNP Unavailable Sudha Greene NP Primary Care Provider Agatha Null DPM, Podiatry /Foot and Ankle Surgery Unavailable Clinic - [facility] Unavailable Reason for Visit * Reason Comments Medication Refill Encounter Details Date Type Department Care Team (Late st Contact Info) Description 06/18/2020 Refill [facility] [place] [address] [facility] [place] [phone] Noreen Flores APRN CNP [address] [facility] [place] [address] Medication Refill Social [...] Date Recorded PHQ-2 Score 2 07/25/2018 [facility] of Occupat ional Health - Occupational [...] Desirae Champagne RN - 06/18/2020 10:53 AM PEDIATRICIAN Prescription approved per [facility] Refill Protocol. Desirae Champagne RN on 06/18/2020 at 10:52 AM ATRICIAN documented in this encounter Plan of Treatment [...] as of this encounter Care Teams Delivery Aide Relationship Specialty Start Date End Date Noreen Flores APRN STRATEGIC INSIGHTS LEAD [address] [place] [address] [place] [address] PCP - General Nurse Practitioner 01/09/19 12/12/21 Sudha Greene, MAURICIO [address] [address] PCP - General 11/01/22 Noreen Flores APRN STRATEGIC INSIGHTS LEAD [address] [place] [address] [place] [address] Assigned PCP 06/16/18 05/26/22 Kalyan Galvan Personal Advocate & Liaison (PAL) 08/08/19 04/26/21 Lashae Trevino, [facility] [address] [place] [address] Pharmacist Pharmacist 10/14/19 12/01/20 Eduardo Sharma MD [address] [place] [address] [place] [address] Assigned Sleep Provider 04/02/2005/07 [place] [address] [facility] [address] [place], [place] [address] Assigned Musculoskeletal Provider 04/02/20 08/24/20 Marcelo Artis PA-C [address] [place] [address] 300 [place] [address] Assigned Musculoskeletal Provider 08/25/20 08/20/21 Rodrigo Man PA-C [address] [place] [address] Assigned Surgical Provider 08/25/20 11/27/20 Noreen Flores APRN CNP [address] [place] [address] [place] [address] Assigned PCP 08/05/22 03/16/23 Agatha Null DPM, Podiatry/Foot and Ankle Surgery [address] [place] [address] [address] [place] [address] Assigned Musculoskeletal Provider 11/04/22 [facility] [address] [facility] [place] [address] Assigned PCP 07/05/23 documented as of this encounter
--- OUTSIDE RECORDS SUMMARY | 2023-10-18 09:49 | XMS_ITS | Encounter Summary ---
Author Name Unknown Organization [place] Address [address] [place] [address] Care Team Providers Care Produce Department Manager Name Role Phone Noreen Flores APRN MASK DESIGN ENGINEER Unavailable Noreen Flores APRN MASK DESIGN ENGINEER Primary Car e Provider Kalyan Galvan Unavailable Unavailable L[facility]ae Trevino [facility] Unavailable [phone] Eduardo Sharma MD Unavailable Marcelo Artis PA-C Unavailable Rodrigo Man PA-C Unavailable Noreen Flores APRN MASK DESIGN ENGINEER Unavailable Sudha [place] NP Primary Care Provider Agatha NullM, Podiatry /Foot and Ankle Surgery Unavailable [facility] - [place] [facility] [...] Friends and Family Patient declined 08/08/2019 Attends Holiness Services Patient declined 07/13 Active Member of [...] Answer Date Recorded PHQ-2 Score 2 07/25/2018 [facility] of Occupat ional Health [...] as of this encounter Care Teams Produce Department Manager Relationship Specialty Start Date End Date Noreen Flores APRN MASK DESIGN ENGINEER [address] [facility] [place] [address] PCP - General Nurse Practitioner 01/09/19 12/12/21 Sudha Greene NP [address] [address] PCP - General 11/01/22 Noreen Flores APRN MASK DESIGN ENGINEER [address] [place] [address] [place] [address] Assigned PCP 06/16/18 05/26/22 Kalyan Galvan Personal Advocate & Liaison (PAL) 08/08/19 04/26/21 [facility] [place] [address] Pharmacist Pharmacist 10/14/19 12/01/20 Eduardo Sharma MD [address] [place] [address] Assigned Sleep Provider 04/02/2005/07 Marcelo Artis PA-C [address] [place] [address] 300 [place] [address] Assigned Musculoskeletal Provider 08/25/20 08/20/21 Rodrigo Man PA-C [address] [place] [address] Assigned Surgical Provider 08/25/20 11/27/20 Noreen Flores APRN MASK DESIGN ENGINEER [address] [facility] [place] [address] Assigned PCP 08/05/22 03/16/23 Agatha Null DPM, Podiatry/Foot and Ankle Surgery [address] [place] [address] Assigned Musculoskeletal Provider 11/04/22 Clinic - [facility] [place] [address] [facility] [place] [address] Assigned PCP 07/05/23 documented as of this encounter
--- OUTSIDE RECORDS SUMMARY | 2023-10-18 09:49 | XMS_ITS | Encounter Summary ---
Author Name Unknown Organization [place] Address [address] [place] [address] Care Team Providers Care Green Chainer Name Role Phone Noreen Flores APRN DOG RAISER Unavailable Sudha [place] NP Primary Care Provider Agatha Null DPM, Podiatry /Foot and Ankle Surgery Unavailable [place] - [facility] [place] Unavailable Reason for Visit * Reason Onset Date Comments Forms 02/02/2023 Encounter Details Date Type Department Care Team (Late st Contact Info) Description 02/02/2023 [facility] Medical Advice [facility] Podiatry [address] [facility] [address] [place], [place] [address] Agatha Null DPM, Podiatry/Foot and Ankle Surgery [address] [place] [place] [address] Forms Social History Tobacco Use [...] Answer Date Recorded PHQ-2 Score 0 11/10/2020 [facility] [place] of Occupat ional Health - Occupational Stress [...] documented as of this encounter Care Teams Green Chainer Relationship Specialty Start Date End Date Sudha Greene NP [address] [address] PCP - General 11/01/22 Noreen Flores APRN CNP [address] [facility] [place] [address] Assigned PCP 08/05/22 03/16/23 Agatha Null DPM, Podiatry/Foot and Ankle Surgery [address] [place] [address] [place], [place] [address] [address] Assigned Musculoskeletal Provider 11/04/22 [facility] Nita [place] [facility] [address] [facility] [place] [address] Assigned PCP 07/05/23 documented as of this encounter
--- OUTSIDE RECORDS SUMMARY | 2023-10-18 09:49 | XMS_ITS | Encounter Summary ---
Author Name Unknown Organization [place] Address [address] [place] [address] Care Team Providers Care Assistant Community Manager Name Role Phone Noreen Flores APRN VENEER PATCHER Unavailable Sudha [place] NP Primary Care Provider Agatha Null DPM, Podiatry /Foot and Ankle Surgery Unavailable [place] - [place] [facility] Unavailable Encounter Details Date Type Department Care Team (Late st Contact Info) Description 01/12/2023 [facility] [place] [place] [facility] [address] [place] [address] [place] [address] Agatha Null DPM, Podiatry/Foot and Ankle Surgery [address] [place] [address] [place] [address] Chronic pain of right ankle [...] Answer Date Recorded PHQ-2 Score 0 11/10/2020 [facility] [place] of Occupat ional Health - Occupational Stress [...] for providerreview/ signature. Haily Gandhi MSA, ATC Industrial Electrician Journeyman documented in this encounter Plan of Treatment Not on file documented as of this encounter Visit Diagnoses Diagnosis Chronic pain of right ankle- Primary Peroneal tendon tear, right, subsequent encounter documented in this encounter Additional Health Concerns Assessment Noted Time PHQ-9 Depression Total Score: 7 11/11/19 21 1:31 PM CDT documented as of this encounter Care Teams Assistant Community Manager Relationship Specialty Start Date End Date Sudha Greene NP [address] [address] PCP - General 11/01/22 Noreen Flores APRN CNP [address] [place] [address] [place] [address] Assigned PCP 08/05/22 03/16/23 Agatha Null DPM, Podiatry/Foot and Ankle Surgery [address] [place] [address] Assigned Musculoskeletal Provider 11/04/22 [facility] [address] [place] [address] [place] [address] Assigned PCP 07/05/23 documented as of this encounter
--- OUTSIDE RECORDS SUMMARY | 2023-10-18 09:49 | XMS_ITS | Encounter Summary ---
Author Name Unknown Organization [place] Address [address] [place] [address] Care Team Providers Care Milk Inspector Name Role Phone Noreen Flores APRN GOLF CLUB WEIGHTER Unavailable Noreen Flores APRN GOLF CLUB WEIGHTER Primary Car e Provider Kalyan Galvan Unavailable Unavailable Eduardo Sharma MD Unavailable Marcelo Artis PA-C Unavailable Noreen Flores APRN GOLF CLUB WEIGHTER Unavailable Sudha Greene NP Primary Care Provider Agatha NullM, Podiatry /Foot and Ankle Surgery Unavailable [facility] - [place] [facility] Unavailable Encounter Details Date Type Department Care Team (Late st Contact Info) Description 02/28/2021 MyC Medical Advice [facility] [address] [facility] [address] [place] [address] Lainey Wells Social History Tobacco [...] Answer Date Recorded PHQ-2 Score 0 11/10/2020 [facility] of Occupat ional Health - Occupational Stress [...] as of this encounter Care Teams Milk Inspector Relationship Specialty Start Date End Date Noreen Flores APRN GOLF CLUB WEIGHTER [address] [place] [address] [place] [address] PCP - General Nurse Practitioner 01/09/19 12/12/21 Sudha Greene NP [facility] - [address] [address] PCP - General 11/01/22 Noreen Flores APRN GOLF CLUB WEIGHTER [address] [place] [address] [place] [address] Assigned PCP 06/16/18 05/26/22 Kalyan Galvan Personal Advocate & Liaison (PAL) 08/08/19 04/26/21 Eduardo Sharma MD [address] [address] Assigned Sleep Provider 04/02/2005/07 Marcelo Artis, PA-C [address] [address] Assigned Musculoskeletal Provider 08/25/20 08/20/21 Noreen Flores APRN GOLF CLUB WEIGHTER [address] [place] [address] [place] [address] Assigned PCP 08/05/22 03/16/23 Agatha Null DPM, Podiatry/Foot and Ankle Surgery [address] [facility] [address] [place] [address] Assigned Musculoskeletal Provider 11/04/22 [facility] [place] [address] [place] [address] Assigned PCP 07/05/23 documented as of this encounter
--- OUTSIDE RECORDS SUMMARY | 2023-10-18 09:49 | XMS_ITS | Encounter Summary ---
Author Name Unknown Organization [place] Address [address] [place] [address] Care Team Providers Care Cofferdam Construction Supervisor Name Role Phone Noreen Flores APRN TAR WORKER Unavailable Sudha Greene NP Primary Care Provider Agatha Null DPM, Podiatry /Foot and Ankle Surgery Unavailable [facility] [place] [facility] Unavailable Encounter Details Date Type Department Care Team (Late st Contact Info) Description 01/04/2023 Myra Medical Advice [facility] [address] [place] [address] Tony Orozco Social History Tobacco [...] Answer Date Recorded PHQ-2 Score 0 11/10/2020 [facility] of Occupat ional Health - Occupational Stress [...] documented as of this encounter Care Teams Cofferdam Construction Supervisor Relationship Specialty Start Date End Date Sudha Greene NP [address] [address] PCP - General 11/01/22 Noreen Flores APRN TAR WORKER [facility] [place] [address] Assigned PCP 08/05/22 03/16/23 Agatha Null DPM, Podiatry/Foot and Ankle Surgery [address] [place] [address] Assigned Musculoskeletal Provider 11/04/22 Clinic - [place] [facility] [address] [place] [address] [place] [address] Assigned PCP 07/05/23 documented as of this encounter
--- OUTSIDE RECORDS SUMMARY | 2023-10-18 09:49 | XMS_ITS | Encounter Summary ---
Author Name Unknown Organization [place] Address [address] [place] [address] Care Team Providers Care Commutator V Ring Assembler Name Role Phone Noreen Flores APRN DIRECTOR CAREER Unavailable Noreen Flores APRN DIRECTOR CAREER Primary Car e Provider Kalyan Galvan Unavailable Unavailable Lashae Trevino [facility] Unavailable [phone] Eduardo Sharma MD Unavailable Marcelo Artis PA-C Unavailable [phone] Rodrigo Man PA-C Unavailable Noreen Flores APRN DIRECTOR CAREER Unavailable Sudha Greene NP Primary Care Provider Agatha NullM, Podiatry /Foot and Ankle Surgery Unavailable [facility] [place] [facility] Unavailable Encounter Details Date Type [...] documented as of this encounter Care Teams Commutator V Ring Assembler Relationship Specialty Start Date End Date Noreen Flores APRN DIRECTOR CAREER [address] [place] [address] [place] [address] PCP - General Nurse Practitioner 01/09/19 12/12/21 Sudha Greene, MAURICIO [address] [address] PCP - General 11/01/22 Noreen Flores APRN DIRECTOR CAREER [address] [place] [address] [place] [address] Assigned PCP 06/16/18 05/26/22 Kalyan Galvan Personal Advocate & Liaison (PAL) 08/08/19 04/26/21 Lashae Trevino [facility] [place] [phone] Pharmacist Pharmacist 10/14/19 12/01/20 Eduardo Sharma MD [address] [place] [address] [place] [address] Assigned Sleep Provider 04/02/2005/07 Marcelo Artis PA-C [address] [facility] [place] [address] [place] [address] Assigned Musculoskeletal Provider 08/25/20 08/20/21 Rodrigo Man PA-C [address] [place] [address] [place] [address] Assigned Surgical Provider 08/25/20 11/27/20 Noreen Flores APRN DIRECTOR CAREER [address] [facility] [place] [address] Assigned PCP 08/05/22 03/16/23 Agatha Null DPM, Podiatry/Foot and Ankle Surgery [address] [place] [address] Assigned Musculoskeletal Provider 11/04/22 [facility] [place] [facility] [address] [facility] [place] [address] Assigned PCP 07/05/23 documented as of this encounter
--- OUTSIDE RECORDS SUMMARY | 2023-10-18 09:49 | XMS_ITS | Encounter Summary ---
Author Name Unknown Organization [place] Address [address] [place] [address] Care Team Providers Care Alloy Weigher Name Role Phone Noreen Flores APRN SORT MANAGER Unavailable Noreen Flores APRN SORT MANAGER Primary Car e Provider Kalyan Galvan Unavailable Unavailable Lashae Trevino [facility] Unavailable [phone] Eduardo Sharma MD Unavailable Rios Monteiro MD Unavailable Marcelo Artis PA-C Unavailable Rodrigo Man PA-C Unavailable [phone] Noreen Flores APRN, CNP Unavailable Sudha Greene NP Primary Care Provider Agatha Null DPM, Podiatry /Foot and Ankle Surgery Unavailable [facility] [place] [facility] Unavailable Reason for Visit * Reason Onset Date Comments Refill Request 06/14/2020 blood glucose mo nitoring (ONE TOUCH DELICA) lancets Refill Request 06/14/2020 blood glucose (A CCU-CHEK JANICE) test strip Encounter Details Date Type Department Care Team (Late st Contact Info) Description 06/14/2020 [facility] [address] [facility] [address] [place] [phone] Jeana-Jd Noreen Sudha, CABINETMAKER SUPERVISOR SORT MANAGER [address] [facility] [place] [address] Refill Request (blood glucose monitoring (ONE TOUCH [...] PHQ-2 Score 2 07/25/2018 [facility] [place] of Occupat ional Health - Occupational Stress [...] Christy Pelayo RN - 06/16/2020 11:04 AM LEASING REPRESENTATIVE Prescription approved per [facility] Refill Protocol. Christy Pelayo RN Flex ING REPRESENTATIVE * Telephone Encounter - Candy Wilda - 06/14/2020 3:55 PM CST Request from pharmacy states: ONE TOUCH VERIO TEST STRIPS and ONE TOUCH 30G DELICA LNC, ING REPRESENTATIVE documented in this encounter Plan of [...] documented as of this encounter Care Teams Alloy Weigher Relationship Specialty Start Date End Date Jeana-Noreen Miles APRN SORT MANAGER [address] [place] [address] [place] [address] PCP - General Nurse Practitioner 01/09/19 12/12/21 Sudha Greene NP [facility] & [address] [address] PCP - General 11/01/22 Noreen Flores APRN SORT MANAGER [address] [place] [address] [place] [address] Assigned PCP 06/16/18 05/26/22 Kalyan Galvan Personal Advocate & Liaison (PAL) 08/08/19 04/26/21 [facility] [address] [place] [address] [place] [address] Pharmacist Pharmacist 10/14/19 12/01/20 Eduardo Sharma MD [address] [place] [address] [place] [address] Assigned Sleep Provider 04/02/2005/[address] [place] [address] [place] [address] Assigned Musculoskeletal Provider 04/02/20 08/24/20 Marcelo Artis PA-C [address] [place] [address] [place] [address] Assigned Musculoskeletal Provider 08/25/20 08/20/21 Rodrigo Man PA-C [address] [place] [address] [place] [id number] Assigned Surgical Provider 08/25/20 11/27/20 Noreen Flores APRN SORT MANAGER [address] [place] [address] [place] [address] Assigned PCP 08/05/22 03/16/23 Agatha Null, MARÍA, Podiatry/Foot and Ankle Surgery [address] [place] [address] Assigned Musculoskeletal Provider 11/04/22 [facility] - [place] [address] [id number] Assigned PCP 07/05/23 documented as of this encounter
--- OUTSIDE RECORDS SUMMARY | 2023-10-18 09:49 | XMS_ITS | Encounter Summary ---
Author Name Unknown Organization [place] Address [address] [place] [address] Care Team Providers Care Frog Farmer Name Role Phone Noreen Flores APRN DRESSMAKING TEACHER Unavailable Noreen Flores APRN DRESSMAKING TEACHER Primary Car e Provider Kalyan Galvan Unavailable Unavailable Lashae Trevino [facility] Unavailable Eduardo Sharma MD Unavailable Marcelo Artis PA-C Unavailable Rodrigo Man PA-C Unavailable [phone] Noeren Flores APRN DRESSMAKING TEACHER Unavailable Sudha Greene NP Primary Care Provider [phone] Agatha Null DPM, Podiatry /Foot and Ankle Surgery Unavailable [facility] - [place] [facility] Unavailable Reason for Visit * Reason Onset Date Comments Refill Request 10/05/2020 topiramate (TOPA MAX) 100 MG tablet Encounter Details Date Type Department Care Team (Late st Contact Info) Description 10/05/2020 Refclaudia M [facility] [place] [address] [place] [address] Noreen Flores APRN DRESSMAKING TEACHER [address] [facility] [place] [address] Refill Request (topiramate [...] Friends and Family Patient declined 08/08/2019 Attends [employer] Services Patient declined 07/13 Active Member of [...] Answer Date Recorded PHQ-2 Score 2 07/25/2018 [facility] [place] of Occupat ional Health - Occupational Stress [...] documented as of this encounter Care Teams Frog Farmer Relationship Specialty Start Date End Date Noreen Flores APRN DRESSMAKING TEACHER [address] [place] [address] [place] [address] PCP - General Nurse Practitioner 01/09/19 12/12/21 Sudha Greene NP [address] [address] PCP - General 11/01/22 Noreen Flores APRN DRESSMAKING TEACHER [address] [place] [address] [place] [address] Assigned PCP 06/16/18 05/26/22 Kalyan Galvan Personal Advocate & Liaison (PAL) 08/08/19 04/26/21 Lashae Trevino, [facility] [address] [facility] [place] [address] Pharmacist Pharmacist 10/14/19 12/01/20 Eduardo Sharma MD [address] [place] [address] [place] 134485 Assigned Sleep Provider 04/02/2005/07 Marcelo Artis PA-C [address] [facility] 300 [place] [address] Assigned Musculoskeletal Provider 08/25/20 08/20/21 Rodrigo Man PA-C [address] [place] [address] [place] [address] Assigned Surgical Provider 08/25/20 11/27/20 Noreen Flores APRN CNP [address] [place] [address] [place] [address] Assigned PCP 08/05/22 03/16/23 Agatha Null DPM, Podiatry/Foot and Ankle Surgery [address] [facility] 300 [place] [address] Assigned Musculoskeletal Provider 11/04/22 [facility] [place] [facility] [address] [facility] [place] [address] Assigned PCP 07/05/23 documented as of this encounter
--- OUTSIDE RECORDS SUMMARY | 2023-10-18 09:49 | XMS_ITS | Encounter Summary ---
Author Name Unknown Organization [place] Address [address] [place] [address] Care Team Providers Care Felt Hat Pouncing Operator Hand Name Role Phone Noreen Flores APRN ROTARY SHEAR WORKER HELPER Unavailable Noreen Flores APRN ROTARY SHEAR WORKER HELPER Primary Car e Provider Marcelo Artis PA-C Unavailable [phone] Noreen Flores APRN ROTARY SHEAR WORKER HELPER Unavailable Sudha Greene NP Primary Care Provider Agatha Null DPM, Podiatry /Foot and Ankle Surgery Unavailable Clinic - [place] [facility] Unavailable Encounter Details Date Type Department Care Team (Late st Contact Info) Description 07/25/2021 MyC Medical Advice [facility] [address] [facility] [address] [place] [address] Christi [...] Answer Date Recorded PHQ-2 Score 0 11/10/2020 [facility] [place] of Occupat ional Health - Occupational Stress [...] documented as of this encounter Care Teams Felt Hat Pouncing Operator Hand Relationship Specialty Start Date End Date Noreen Flores APRN ROTARY SHEAR WORKER HELPER [address] [facility] [address] [place], [place] [address] PCP - General Nurse Practitioner 01/09/19 12/12/21 Sudha Greene NP [address] [address] PCP - General 11/01/22 Noreen Flores APRN ROTARY SHEAR WORKER HELPER [address] [place] [address] [place] [address] Assigned PCP 06/16/18 05/26/22 Marcelo Artis PA-C [address] [place] [address] Assigned Musculoskeletal Provider 08/25/20 08/20/21 Noreen Flores APRN ROTARY SHEAR WORKER HELPER [address] [place] [address] [place] [address] Assigned PCP 08/05/22 03/16/23 Agatha Null DPM, Podiatry/Foot and Ankle Surgery [address] [place] [address] 300 [place] [address] Assigned Musculoskeletal Provider 11/04/22 [facility] - [place] [address] [place] [address] Assigned PCP 07/05/23 documented as of this encounter
--- OUTSIDE RECORDS SUMMARY | 2023-10-18 09:49 | XMS_ITS | Encounter Summary ---
Author Name Unknown Organization [place] Address [address] [place] [address] Care Team Providers Care Cat Scanner Operator Name Role Phone Noreen Flores APRN CARBON DIOXIDE OPERATOR Unavailable Noreen Flores APRN CARBON DIOXIDE OPERATOR Primary Car e Provider Kalyan Galvan Unavailable Unavailable Lashae Trevino [facility] Unavailable Eduardo Sharma MD Unavailable Rios Monteiro MD Unavailable [phone] Marcelo Artis PA-C Unavailable Rodrigo Man PA-C Unavailable [phone] Noreen Flores APRN, CNP Unavailable Sudha Greene NP Primary Care Provider [phone] Agatha Null DPM, Podiatry /Foot and Ankle Surgery Unavailable Clinic - [place] [facility] Unavailable Encounter Details Date Type Department Care Team (Late st Contact Info) Description 08/02/2020 Myra Moya [facility] [address] [facility] [address] [place] [address] Lainey Wells Social History Tobacco [...] Answer Date Recorded PHQ-2 Score 2 07/25/2018 [facility] of Occupat ional Health - [...] COVID-19? No / Unsure 07/17/2020 1:32 PM FLOOR WINDER documented as of this encounter Plan [...] as of this encounter Care Teams Cat Scanner Operator Relationship Specialty Start Date End Date Noreen Flores APRN CARBON DIOXIDE OPERATOR [address] [place] [address] [place] [address] PCP - General Nurse Practitioner 01/09/19 12/12/21 Sudha Greene NP [address] [address] PCP - General 11/01/22 Noreen Flores APRN CARBON DIOXIDE OPERATOR [address] [place] [address] [place] [address] Assigned PCP 06/16/18 05/26/22 Kalyan Galvan Personal Advocate & Liaison (PAL) 08/08/19 04/26/21 [facility] [address] [facility] [place] [address] Pharmacist Pharmacist 10/14/19 12/01/20 Eduardo Sharma MD [address] [facility] 103 [place] [address] Assigned Sleep Provider 04/02/2005/07 [place] [address] [facility] 300 [place] [address] Assigned Musculoskeletal Provider 04/02/20 08/24/20 Marcelo Artis PA-C [address] [facility] 300 [place] [address] Assigned Musculoskeletal Provider 08/25/20 08/20/21 Rodrigo Man PA-C [address] [facility] [address] [place] [address] Assigned Surgical Provider 08/25/20 11/27/20 Noreen Flores APRN CNP [address] [place] [address] [place] [address] Assigned PCP 08/05/22 03/16/23 Agatha Null DPM, Podiatry/Foot and Ankle Surgery [address] [facility] 300 [place] [address] Assigned Musculoskeletal Provider 11/04/22 [facility] [place] [facility] [address] [facility] [place] [address] Assigned PCP 07/05/23 documented as of this encounter
--- OUTSIDE RECORDS SUMMARY | 2023-10-18 09:49 | XMS_ITS | Encounter Summary ---
Author Name Unknown Organization [place] Address [address] [place] [address] Care Team Providers Care Box Estimator Name Role Phone Noreen Flores APRN TRACK MACHINE OPERATOR REPAIRER Unavailable Noreen Flores APRN TRACK MACHINE OPERATOR REPAIRER Primary Car e Provider Kalyan Galvan Unavailable Unavailable Lashae Trevino [facility] Unavailable [phone] Eduardo Sharma MD Unavailable Marcelo Artis PA-C Unavailable Rodrigo ManC Unavailable [phone] Noreen Flores APRN TRACK MACHINE OPERATOR REPAIRER Unavailable Sudha Greene NP Primary Care Provider Agatha Null DPM, Podiatry /Foot and Ankle Surgery Unavailable [facility] [place] [facility] Unavailable Encounter Details Date Type Department Care Team (Late st Contact Info) Description 10/28/2020 Myra Moya [facility] [place] [address] [facility] [address] [place] [address] Lashae Trevino, [facility] [address] [facility] [place] [address] Social History [...] Friends and Family Patient declined 08/08/2019 Attends [employer] Patient declined 07/13 Active Member [...] Recorded PHQ-2 Score 2 07/25/2018 [facility] of Occupat ional Health - Occupational Stress [...] documented as of this encounter Care Teams Box Estimator Relationship Specialty Start Date End Date Noreen Flores APRN TRACK MACHINE OPERATOR REPAIRER [facility] [place] [address] PCP - General Nurse Practitioner 01/09/19 12/12/21 Sudha Greene NP [address] [address] PCP - General 11/01/22 Noreen Flores APRN TRACK MACHINE OPERATOR REPAIRER [address] [place] [address] [place] [address] Assigned PCP 06/16/18 05/26/22 Kalyan Galvan Personal Advocate & Liaison (PAL) 08/08/19 04/26/21 [facility] [address] [place] [address] [place] [address] Pharmacist Pharmacist 10/14/19 12/01/20 Eduardo Sharma MD [address] [facility] 103 [place] [address] Assigned Sleep Provider 04/02/2005/07 Marcelo Artis PA-C [id number] [place] [address] 300 [place] [address] Assigned Musculoskeletal Provider 08/25/20 08/20/21 Rodrigo Man PA-C [address] [place] [address] Assigned Surgical Provider 08/25/20 11/27/20 Noreen Flores APRN TRACK MACHINE OPERATOR REPAIRER [address] [facility] [place] [address] Assigned PCP 08/05/22 03/16/23 Agatha Null DPM, Podiatry/Foot and Ankle Surgery [address] [place] [address] [place] [address] Assigned Musculoskeletal Provider 11/04/22 [facility] [place] [facility] [address] [facility] [place] [address] Assigned PCP 07/05/23 documented as of this encounter
--- OUTSIDE RECORDS SUMMARY | 2023-10-18 09:49 | XMS_ITS | Referral Summary ---
Author Name Unknown Organization [place] Address [address] [place] [address] Care Team Providers Care Shank Skinner Name Role Phone Sudha Greene NP Primary Care Provider [phone] Agatha Null DPM, Podiatry /Foot and Ankle Surgery Unavailable [facility] [place] [facility] Unavailable Allergies Active Allergy Reactions [...] sprayIndications:Al lergic rhinitis, unspecified seasonality, unspecified trigger [place] 1-2 sprays into both nostrils daily 16 [...] use. Address next visit Family history of [place] (myocardial infarction) 08/2007 Overview: At early age, father [place] at age 40 Resolved Problems Problem Noted [...] Date Recorded PHQ-2 Score 0 11/10/2020 [facility] [place] of Occupat ional Health - Occupational Stress [...] Comments Blood Pressure 128/80 05/11/2023 1:07 PM MACHINE II COREMAKER Pulse 87 02/26/2023 3:58 PM CDT Temperature 36.2 ??C (97.2 ??F) 02/26/2023 3:58 PM CD T Respiratory Rate 12 02/26/2023 3:13 PM CDT Oxygen Saturation 95% 02/26/2023 4:00 PM CDT Inhaled Oxygen Concentration - - Weight 87.1 kg (192 lb) 05/11/2023 1:07 PM MACHINE II COREMAKER Height 156 cm (5' 1.42) 02/26/2023 11:19 AM CDT Body Mass Index 35.79 02/26/2023 11:19 AM CDT Plan of Treatment Not on file Procedures Procedure Name Priority Date/Time Associated Diagnosis Comments COMPREHENSIVE METABOLIC PANEL Routine 11/10/2020 2:29 PM CDT Polyarthralgia EYE EXAM - HIM SCAN 05/17/2020 1 2:00 AM MACHINE II COREMAKER HEMOGLOBIN A1C Routine 01/13/2020 8:55 AM CDT Type 2 diabetes mellitus with complication, without long-term current use of insulin (H) FECAL COLORECTAL CANCER SCREEN FIT Routine 01/12/2020 8:00 AM CDT Health care maintenance ALBUMIN RANDOM URINE QUANTITATIVE Routine 08/08/2019 10:17 AM MACHINE II COREMAKER Routine general medical examination at a health care facility LIPID REFLEX TO DIRECT LDL PANEL Routine 08/08/2019 10:17 AM MACHINE II COREMAKER Routine general medical examination at a health [...] TYPES DNA CERVICAL Routine 05/03/2016 12:17 PM MACHINE II COREMAKER Cervical cancer screening PAP IMAGED THIN LAYER SCREEN Routine 05/03/2016 12:00 AM MACHINE II COREMAKER Cervical cancer screening C FOOT EXAM Routine 10/06/2014 9:47 AM CDT Type 2 diabetes, HbA1C goal < 7% (H) from Last 3 Months or Most Recently Relevant to Health Maintenance Results * (ABNORMAL) Comprehensive metabolic panel (11/10/2020 2:29 PM CDT) Sodium 142 133 - 144 mmol/L 11/10/2020 7:51 PM CDT [facility] Potassium 4.0 3.4 - 5.3 mmol/L 11/10/2020 7:51 PM CDT [facility] Chloride 112(H) 94 - 109 mmol/L 11/10/2020 7:51 PM CDT [facility] Carbon Dioxide 27 20 - 32 mmol/L 11/10/2020 7:58 PM CDT [facility] Anion Gap 4 3 - 14 mmol/L 11/10/2020 7:58 PM CDT [facility] Glucose 96 70 - 99 mg/dL 11/10/2020 7:58 PM CDT [facility] Urea Nitrogen 14 7 - 30 mg/dL 11/10/2020 7:58 PM CDT [facility] Creatinine 0.74 0.52 - 1.04 mg/dL 11/10/2020 7:58 PM T [facility] GFR Estimate >90 >60 mL/min/{1 .73_m2} 11/10/2020 7:58 PM CDT [facility] Comment: Non GFR Calc Starting 05/28/2018, serum creatinine based estimated GFR (eGFR) will be calculated using the Chronic Kidney Disease Epidemiology Collaboration (CKD-EPI) equation. GFR Estimate If Black >90 >60 mL/min/{1 .73_m2} 11/10/2020 7:58 PM T [facility] Comment: GFR Calc Starting 05/28/2018, serum creatinine based estimated GFR (eGFR) will be calculated using the Chronic Kidney Disease Epidemiology Collaboration (CKD-EPI) equation. Calcium 9.3 8.5 - 10.1 mg/dL 11/10/2020 7:58 PM CDT [facility] Bilirubin Total 0.6 0.2 - 1.3 mg/dL 11/10/2020 8:01 PM CDT [facility] Albumin 3.6 3.4 - 5.0 g/dL 11/10/2020 8:01 PM CDT [facility] Protein Total 7.2 6.8 - 8.8 g/dL 11/10/2020 8:01 PM CDT [facility] Alkaline Phosphatase 143 40 - 150 U/L 11/10/2020 8:01 PM CDT [facility] ALT 23 0 - 50 U/L 11/10/2020 8:01 PM CDT [facility] AST 16 0 - 45 U/L 11/10/2020 8:01 PM CDT [facility] Blood 11/10/2020 2:29 PM CDT 11/10/2020 3:04 PM CDT Kavin Fitzgerald PA-C LAB - BLO OD ORDERABLES Performing Organization Address City/[facility]/ZIP Co de Phone Number [facility] [address] [place] [address] * EYE EXAM - HIM SCAN (05/17/2020 12:00 AM MACHINE II COREMAKER) RETINOPATHY NEGATIVE 05/17/2020 Narrative Lauren Posada - 05/17/2020 12:00 AM MACHINE II COREMAKER DIABETIC EYE EXAM [facility] Provider Outside OTHER * (ABNORMAL) A1C FUTURE 1yr (01/13/2020 8:55 AM CDT) Hemoglobin A1C 6.1(H) 0 - 5.6 % 01/13/2020 9:[address] [facility] Comment: Normal <5.7% Prediabetes 5.7-6.4% ??Diabetes 6.5% or higher - adopted from ADA consensus guidelines. Blood specimen (specimen) 01/13/2020 8:55 AM CDT 01/13/2020 8:56 AM CDT Noreen Flores APRN STITCHER TAPE CONTROLLED MACHINE LAB - BLOOD ORDERABLES [facility] [address] [place] [address] * Fecal colorectal cancer screen (FIT) (01/12/2020 8:00 AM CDT) Occult Blood Scn FIT Negative NEG^Negati ve 01/18/2020 4:19 PM CDT [facility] Stool specimen (specimen) 01/12/2020 8:00 AM CDT 01/18/2020 1:16 PM CDT Noreen Flores APRN, CNP LAB - STOOLS ORDERABLES [facility] [address] [place] [address] * Albumin Random Urine Quantitative with Creat Ratio (08/08/2019 10:17 AM MACHINE II COREMAKER) Creatinine Urine 154 mg/dL 08/09/2019 1:54 PM MACHINE II COREMAKER [facility] Albumin Urine mg/L 11 mg/L 08/09/2019 1:59 PM MACHINE II COREMAKER [facility] Albumin Urine mg/g Cr 7.14 0 - 25 mg/g Cr 08/09/2019 1:59 PM MACHINE II COREMAKER [facility] Urine specimen (specimen) 08/08/2019 10:17 AM MACHINE II COREMAKER 08/08/2019 10:18 AM MACHINE II COREMAKER Noreen Flores APRN, CNP LAB - URINE ORDERABLES Performing Organization Address City/[facility]/ZIP Co de Phone Number [facility] [address] [place] [address] * (ABNORMAL) Lipid panel reflex to direct LDL Fasting (08/08/2019 10:17 AM MACHINE II COREMAKER) Cholesterol 180 <200 mg/dL 08/08/2019 7:47 PM MACHINE II COREMAKER [facility] Triglycerides 153(H) <150 mg/dL 08/08/2019 7:47 PM MACHINE II COREMAKER [facility] Comment: Borderline high: ??150-199 mg/dl High: ? 200-499 mg/dl Very high: ? >499 mg/dl HDL Cholesterol 46(L) >49 mg/dL 0 7:47 PM [facility] LDL Cholesterol Calculated 103(H) <100 mg/dL 08/08/2019 7:47 PM [facility] Comment: Above desirable: ??100-129 mg/dl Borderline High: ??130-159 mg/dL High: ? 160-189 mg/dL Very high: ? >189 mg/dl Non HDL Cholesterol 134(H) <130 mg/dL 08/08/2019 7:47 PM [facility] Comment: Above Desirable: ??130-159 mg/dl Borderline high: ??160-189 mg/dl High: ? 190-219 mg/dl Very high: ? >219 mg/dl Blood specimen (specimen) 08/08/2019 10:17 AM MACHINE II COREMAKER 08/08/2019 10:18 AM MACHINE II COREMAKER Noreen Flores APRN STITCHER TAPE CONTROLLED MACHINE LAB - BLOOD ORDERABLES Performing Organization Address City/State/[facility] Co de Phone Number [facility] [address] [place] [address], [facility] [phone] * *MA Screening Digital Bilateral (09/03/2018 10:13 [...] Nonreactive NR^Nonrea ctive 04/10/2018 7:29 AM CDT [facility] Comment:HIV-1 p24 Ag & HIV-1 /HIV-2 Ab Not Detected Blood specimen (specimen) 04/09/2018 10:09 AM CDT 04/09/2018 10:15 AM CDT Noreen Flores APRN, CNP LAB - BLOOD ORDERABLES [facility] [address] * Hepatitis C Screen Reflex to HCV RNA Quant and Genotype (09/25/2016 2:30 PM CDT) Pathologist [facility] Hepatitis C Antibody Nonreactive Assay performance characteristics have not been established for newborns, infants, and children NR [facility] Blood specimen (specimen) 09/25/2016 2:30 PM CDT 09/26/2016 11:29 AM CDT Vanda Borja MD LAB - BLOOD ORDER ILDEFONSO [facility] [address] [place] [address] * HPV High Risk Types DNA Cervical (05/03/2016 12:17 PM MACHINE II COREMAKER) HPV 16 DNA Negative NEG [facility] HPV 18 DNA Negative NEG [facility] Other HR HPV Negative NEG [facility] Final Diagnosis This patient's sample is [...] and its performance characteristics determined by the [facility], Molecular Diagnostics Laboratory. It has not been cleared or approved by the FDA. The laboratory is regulated under CLIA as qualified to perform high-complexity testing. This test is used for clinical purposes. It should not be regarded as investigational or for research. [facility] Specimen Description Cervical Cells C16 [id number] [facility] Cervical Cells 05/03/2016 12 :17 PM MACHINE II COREMAKER 05/03/2016 12:20 PM MACHINE II COREMAKER Vanda Borja MD LAB - BLOOD ORDER ILDEFONSO [facility] [address] [place] [address] * Pap imaged thin layer screen with HPV - recommended age 30 - 65 years (select HPV order below) (05/03/2016 12:00 AM MACHINE II COREMAKER) PAP RAMSEY Wren Report Patient Name: MEGAN CHOI MR#: [id number] Specimen #: [id number] Collected: 05/03/2016 Received: 05/05/2016 Reported: 05/09/2016 08:26 [...] TARIQ Wick (ASCP) Processed and screened at [facility], [facility] CLINICAL HISTORY: LMP: 10/30/11 Post Menopausal, Previous normal pap Date of Last Pap: 10/06/14, Papanicolaou Test Limitations: ??Cervical cytology is a screening test with limited sensitivity; regular screening is critical for cancer prevention; Pap tests are primarily effective for the diagnosis/preventi on of squamous cell carcinoma, not adenocarcinomas or other cancers. TESTING LAB LOCATION: [address] ??[id number] COLLECTION SITE: Client: ??[facility] Location: EAFP (R) COPATH Cytologic material (specimen) 05/03/2016 05/05/2016 10:22 AM MACHINE II COREMAKER Vanda Borja MD LAB - OPTIME CLIN ICAL SPECIMEN COPATH from Last 3 Months or Most Recently Relevant to Health Maintenance Care Teams Shank Skinner Relationship Specialty Start Date End Date Sudha Greene NP [facility] - [address] [address] PCP - General 11/01/22 Agatha Null, MARÍA, Podiatry/Foot and Ankle Surgery [address] [place] [address] Assigned Musculoskeletal Provider 11/04/22 [facility] [place] [address] [id number] Assigned PCP 07/05/23
--- OUTSIDE RECORDS SUMMARY | 2023-10-18 09:50 | XMS_ITS | Encounter Summary ---
Author Name Unknown Organization [place] Address [address] [place] [address] Care Team Providers Care Resident Medical Officer Name Role Phone Noreen Flores APRN LAB TESTER Unavailable Noreen Flores APRN LAB TESTER Primary Car e Provider Kalyan Galvan Unavailable Unavailable Lashae Trevino [facility] Unavailable Eduardo Sharma MD Unavailable Rios Monteiro MD Unavailable [phone] Marcelo Artis PA-C Unavailable [phone] Rodrigo Man PA-C Unavailable [phone] Noreen Flores APRN LAB TESTER Unavailable Sudha Greene NP Primary Care Provider [phone] Agatha Null DPM, Podiatry /Foot and Ankle Surgery Unavailable [facility] [place] [facility] Unavailable Encounter Details Date Type Department Care Team (Late st Contact Info) Description 10/28/2019 Myra Moya [facility] [place] [address] [place] [address] Noreen Flores APRN CNP [address] [facility] [place] [address] Social History Tobacco [...] Answer Date Recorded PHQ-2 Score 2 07/25/2018 [facility] [place] of Occupat ional Health - Occupational Stress [...] Total Score: 9 08/09/19 20 7:03 AM LAND DEPARTMENT HEAD documented as of this encounter Care Teams Resident Medical Officer Relationship Specialty Start Date End Date Jeana-Noreen Miles APRN CNP [address] [facility] [place] [address] PCP - General Nurse Practitioner 01/09/19 12/12/21 Sudha Greene NP [address] [place] [address] PCP - General 11/01/22 Noreen Flores APRN LAB TESTER [address] [place] [address] [place] [address] Assigned PCP 06/16/18 05/26/22 Kalyan Galvan Personal Advocate & Liaison (PAL) 08/08/19 04/26/21 [facility] [address] [place] [address] [place] [address] Pharmacist Pharmacist 10/14/19 12/01/20 Eduardo Sharma MD [address] [place] [address] Assigned Sleep Provider 04/02/2005/07 [place] [address] [place] [address] Assigned Musculoskeletal Provider 04/02/20 08/24/20 Marcelo Artis PA-C [address] [place] [address] Assigned Musculoskeletal Provider 08/25/20 08/20/21 Rodrigo Man PA-C [address] [place], [place] [address] Assigned Surgical Provider 08/25/20 11/27/20 Noreen Flores APRN LAB TESTER [address] [place] [address] [place] [address] Assigned PCP 08/05/22 03/16/23 Agatha Null DPM, Podiatry/Foot and Ankle Surgery [address] [place] [address] Assigned Musculoskeletal Provider 11/04/22 [facility] [place] [address] [place] [address] Assigned PCP 07/05/23 documented as of this encounter
--- OUTSIDE RECORDS SUMMARY | 2023-10-18 09:50 | XMS_ITS | Encounter Summary ---
Author Name Unknown Organization [place] Address [address] [place] [address] Care Team Providers Care Cardiology Coordinator Name Role Phone Vanda Guerrero MD Primary Care Provider [phone] Noreen Flores APRN FILM DRYING MACHINE OPERATOR Unavailable Noreen Flores APRN FILM DRYING MACHINE OPERATOR Primary Car e Provider Kalyan Galvan Unavailable Unavailable Lashae Trevino [facility] Unavailable [phone] Eduardo Sharma MD Unavailable Rios Monteiro MD Unavailable [phone] Marcelo Artis PA-C Unavailable [phone] Rodrigo Man PA-C Unavailable [phone] Noreen Flores APRN FILM DRYING MACHINE OPERATOR Unavailable Sudha Greene NP Primary Care Provider Agatha Null DPM, Podiatry /Foot and Ankle Surgery Unavailable [facility] [place] [facility] Unavailable Encounter Details Date Type Department Care Team (Late st Contact Info) Description 12/09/2018 [facility] [address] [facility] [address] [place] [address] Christi Panda [place] Social History Tobacco [...] Depression Total Score: 7 06/25/19 9:[address] documented as of this encounter Care Teams Cardiology Coordinator Relationship Specialty Start Date End Date Vanda Guerrero MD [address] [place] [address] [place] [address] PCP - General Internal Medicine 04/08/15 01/08/19 Noreen Flores APRN FILM DRYING MACHINE OPERATOR [address] [place] [address] [place] [address] PCP - General Nurse Practitioner 01/09/19 12/12/21 Sudha Greene NP [address] [address] PCP - General 11/01/22 Noreen Flores APRN FILM DRYING MACHINE OPERATOR [address] [place] [address] [place] [address] Assigned PCP 06/16/18 05/26/22 Kalyan Galvan Personal Advocate & Liaison (PAL) 08/08/19 04/26/21 [facility] [place] [address] Pharmacist Pharmacist 10/14/19 12/01/20 Eduardo Sharma MD [address] [place] [address] Assigned Sleep Provider 04/02/2005/07 [place] [id number] [place] [address] [address] [place] [id number] Assigned Musculoskeletal Provider 04/02/20 08/24/20 Marcelo Artis PA-C [address] [place] [address] [address] [place] [address] Assigned Musculoskeletal Provider 08/25/20 08/20/21 Rodrigo Man PA-C [address] [place] [address] Assigned Surgical Provider 08/25/20 11/27/20 Noreen Flores APRN FILM DRYING MACHINE OPERATOR [address] [place] [address] [place] [address] Assigned PCP 08/05/22 03/16/23 Agatha Null DPM, Podiatry/Foot and Ankle Surgery [address] [place] [place] [address] Assigned Musculoskeletal Provider 11/04/22 [facility] [place] [facility] [address] [facility] [place] [address] Assigned PCP 07/05/23 documented as of this encounter
--- OUTSIDE RECORDS SUMMARY | 2023-10-18 09:50 | XMS_ITS | Encounter Summary ---
Author Name Unknown Organization [place] Address [address] [place] [address] Care Team Providers Care Non Categorical Preschool Teacher Name Role Phone Vanda Guerrero MD Primary Care Provider [phone] Vanda Guerrero MD Unavailable [phone] Jeana-Noreen Miles APRN SHIPPING SUPERVISOR Unavailable [facility]-Noreen Miles APRN SHIPPING SUPERVISOR Unavailable [facility]-JdNoreen castro APRN SHIPPING SUPERVISOR Primary Car e Provider Kalyan Galvan Unavailable Unavailable Lashae Trevino [facility] Unavailable Eduardo Sharma MD Unavailable Rios Monteiro MD Unavailable [phone] Marcelo Artis PA-C Unavailable [phone] Rodrigo ManC Unavailable Jeana-JdNoreen castro APRN SHIPPING SUPERVISOR Unavailable Sudha Greene NP Primary Care Provider Agatha Null DPM, Podiatry /Foot and Ankle Surgery Unavailable [facility] [place] [facility] Unavailable Reason for Visit * Reason Comments Medication Refill ONETOUCH ULTRA test strip; simvastatin (ZOCOR) 20 MG tablet Encounter Details Date Type Department Care Team (Late st Contact Info) Description 12/21/2017 Refill [facility] [place] [address] [place] [address] Vanad Guerrero MD [address] [facility] [place] [address] Medication Refill (ONETOUCH ULTRA test strip; simvastatin [...] 12/25/2017 10:56 AM CDT Prescription approved per [facility] Refill Protocol. Day Greene RN, BSN * [...] Depression Total Score: 12 018 1:02 PM EARLY LEARNING TEACHER documented as of this encounter Care Teams Non Categorical Preschool Teacher Relationship Specialty Start Date End Date Vanda Guerrero MD [address] [facility] [place] [address] PCP - General Internal Medicine 04/08/15 01/08/19 Vanda Guerrero MD [address] [facility] [place] [address] PCP - Assigned PCP 07/24/16 06/15/18 Noreen Flores APRN SHIPPING SUPERVISOR [address] [place] [address] [place] [address] PCP - Assigned PCP 06/16/18 08/13/18 Noreen Flores APRN SHIPPING SUPERVISOR [address] [place] [address] [place] [address] PCP - General Nurse Practitioner 01/09/19 12/12/21 Sudha Greene, MAURIC[place] [address] [address] PCP - General 11/01/22 Noreen Flores APRN SHIPPING SUPERVISOR [address] [place] [address] [place] [address] Assigned PCP 06/16/18 05/26/22 Kalyan Galvan Personal Advocate & Liaison (PAL) 08/08/19 04/26/21 [facility] [address] [facility] [place] [phone] Pharmacist Pharmacist 10/14/19 12/01/20 Eduardo Sharma MD [address] [facility] [address] [place] [address] Assigned Sleep Provider 04/02/2005/07 [place] [address] [facility] [address] [place] [address] Assigned Musculoskeletal Provider 04/02/20 08/24/20 Marcelo Artis PA-C [address] [address] Assigned Musculoskeletal Provider 08/25/20 08/20/21 Rodrigo Man PA-C [address] [address] Assigned Surgical Provider 08/25/20 11/27/20 Noreen Flores APRN SHIPPING SUPERVISOR [address] [place] [address] [place] [address] Assigned PCP 08/05/22 03/16/23 Agatha Null DPM, Podiatry/Foot and Ankle Surgery [address] [place] [address] [address] [place] [address] Assigned Musculoskeletal Provider 11/04/22 [facility] [place] [facility] [address] [place], [place] [address] [address] Assigned PCP 07/05/23 documented as of this encounter
--- OUTSIDE RECORDS SUMMARY | 2023-10-18 09:50 | XMS_ITS | Encounter Summary ---
Author Name Unknown Organization [place] Address [address] [place] [address] Care Team Providers Care Bricklayer Paving Brick Name Role Phone Noreen Flores APRN, CNP Unavailable Noreen Flores APRN, CNP Primary Car e Provider Kalyan Galvan Unavailable Unavailable Lashae Trevino [facility] Unavailable Eduardo Sharma MD Unavailable Rios Monteiro MD Unavailable Marcelo Artis PA-C Unavailable Rodrigo Man PA-C Unavailable [phone] Noreen Flores APRN, CNP Unavailable Sudha Greene NP Primary Care Provider Agatha Null DPM, Podiatry /Foot and Ankle Surgery Unavailable Clinic - [facility] [place] Unavailable Reason for Visit * Reason Onset Date Comments Refill Request 08/08/2019 DULoxetine (CYMB EDIN) 30 MG capsule Encounter Details Date Type Department Care Team (Late st Contact Info) Description 08/08/2019 Refill [facility] [address] [facility] [address] [place] [phone] Noreen Flores APRN CNP [address] [facility] [place] [address] Refill Request (DULoxetine (CYMBALTA) 30 MG capsule) [...] Answer Date Recorded PHQ-2 Score 2 07/25/2018 [facility] [place] of Occupat ional Health - Occupational Stress [...] Radha Manning RN - 08/13/2019 10:02 AM RESTAURANT ASSOCIATE Noreen: I spoke with the Pt. The Pt has been taking 1, 30 mg capsule, once per day. She does not want to goup to 60 mg. Yasmin sent this in for her. Radha Manning RN [facility] -- Triage Nurse AURANT ASSOCIATE * Telephone Encounter - Noreen Hills APRN CNP - 08/11/2019 9:41 AM CST Please verify that she was previously taking 1 tab twice a day. If so, please switch it to 1, 60mg tab, once per day. Pls notify her of the change. AURANT ASSOCIATE * Telephone Encounter - Gayathri Mcallister RN - 08/11/2019 9:38 AM RESTAURANT ASSOCIATE Please review sig for duloxetine, hydrochlorothiazide and metformin ( per review of last office visit 2000 mg daily of metformin, I am not sure about Duloxetine sig and dispense amount, Thank you) Gayathri Mcallister RN Message handled by Nurse Triage. AURANT ASSOCIATE * Telephone Encounter - Kartik Javier - 08/08/2019 5:46 PM CST Also Review Rx directions for Metformin hydrochloride 500 mg. Pharmacy is requesting clarification. AURANT ASSOCIATE * Telephone Encounter - Kartik Javier - 08/08/2019 2:39 PM CST Script Clarification: Rx has two sets of directions. Please send new Rx with the Proper Directions. Thanks. AURANT ASSOCIATE documented in this encounter Plan of [...] Total Score: 9 08/09/19 20 7:03 AM RESTAURANT ASSOCIATE documented as of this encounter Care Teams Bricklayer Paving Brick Relationship Specialty Start Date End Date Noreen Flores APRN MARKETING ACCOUNT EXECUTIVE [facility] [place] [address] PCP - General Nurse Practitioner 01/09/19 12/12/21 Sudha Greene, MAURICIO [address] [address] PCP - General 11/01/22 Noreen Flores APRN MARKETING ACCOUNT EXECUTIVE [address] [place] [address] [place] [address] Assigned PCP 06/16/18 05/26/22 Kalyan Galvan Personal Advocate & Liaison (PAL) 08/08/19 04/26/21 [facility] [address] [place] [address] Pharmacist Pharmacist 10/14/19 12/01/20 Eduardo Sharma MD [address] [place] [address] [place] [id number] Assigned Sleep Provider 04/02/2005/07 [place] [address] [address] Assigned Musculoskeletal Provider 04/02/20 08/24/20 Marcelo Artis PA-C [address] [address] Assigned Musculoskeletal Provider 08/25/20 08/20/21 Rodrigo Man PA-C [address] [address] Assigned Surgical Provider 08/25/20 11/27/20 Noreen Flores APRN MARKETING ACCOUNT EXECUTIVE [address] [place] [address] [place] [address] Assigned PCP 08/05/22 03/16/23 Agatha Null DPM, Podiatry/Foot and Ankle Surgery [address] [facility] [address] [place] [address] Assigned Musculoskeletal Provider 11/04/22 [facility] - [place] [facility] [address] [place] [address] Assigned PCP 07/05/23 documented as of this encounter
--- OUTSIDE RECORDS SUMMARY | 2023-10-18 09:50 | XMS_ITS | Encounter Summary ---
Author Name Unknown Organization [place] Address [address] [place] [address] Care Team Providers Care Auto Service Mechanic Name Role Phone Noreen Flores APRN TURNSTILE ATTENDANT Unavailable Noreen Flores APRN TURNSTILE ATTENDANT Primary Car e Provider Kalyan Galvan Unavailable Unavailable Lashae Trevino [facility] Unavailable Eduardo Sharma MD Unavailable Rios Monteiro MD Unavailable [phone] Marcelo Artis PA-C Unavailable Rodrigo Man PA-C Unavailable [phone] Noreen Flores APRN, CNP Unavailable Sudha Greene NP Primary Care Provider Agatha Null DPM, Podiatry /Foot and Ankle Surgery Unavailable Clinic - [place] [facility] Unavailable Encounter Details Date Type Department Care Team (Late st Contact Info) Description 05/30/2019 Myra Moya [facility] [address] [facility] [address] [place] [address] Christi Panda MA Social History [...] as of this encounter Care Teams Auto Service Mechanic Relationship Specialty Start Date End Date Noreen Flores APRN TURNSTILE ATTENDANT [address] [facility] [place] [address] PCP - General Nurse Practitioner 01/09/19 12/12/21 Sudha Greene NP [address] [address] PCP - General 11/01/22 Noreen Flores APRN TURNSTILE ATTENDANT [address] [place] [address] [place] [address] Assigned PCP 06/16/18 05/26/22 Kalyan Galvan Personal Advocate & Liaison (PAL) 08/08/19 04/26/21 Lashae Trevino, [facility] [address] [place] [address] Pharmacist Pharmacist 10/14/19 12/01/20 Eduardo Sharma MD [address] [place] [address] [place] [address] Assigned Sleep Provider 04/02/2005/07 [place] [id number] [place] [address] [address] [place] [address] Assigned Musculoskeletal Provider 04/02/20 08/24/20 Marcelo Artis PAM[place]on [address] [facility] 300 [place] [address] Assigned Musculoskeletal Provider 08/25/20 08/20/21 Rodrigo Man PA-C [address] [facility] [address] [place] [address] Assigned Surgical Provider 08/25/20 11/27/20 Noreen Flores APRN TURNSTILE ATTENDANT [address] [place] [address] [place] [id number] Assigned PCP 08/05/22 03/16/23 Agatha Null DPM, Podiatry/Foot and Ankle Surgery [address] [place] [address] [facility] [address] [place] [address] Assigned Musculoskeletal Provider 11/04/22 [facility] - [place] [facility] [address] [facility] [place] [id number] Assigned PCP 07/05/23 documented as of this encounter
--- OUTSIDE RECORDS SUMMARY | 2023-10-18 09:50 | XMS_ITS | Encounter Summary ---
Author Name Unknown Organization [place] Address [address] [place] [address] Care Team Providers Care Automobile Technician Name Role Phone Vanda Guerrero MD Primary Care Provider [phone] Vanda Guerrero MD Unavailable [phone] Jeana-Noreen Miles APRN FILLING CARRIER Unavailable [facility]en Miles APRN FILLING CARRIER Unavailable [facility]JdNoreen castro APRN FILLING CARRIER Primary Car e Provider Kalyan Galvan Unavailable Unavailable Lashae Trevino [facility] Unavailable Eduardo Sharma MD Unavailable Rios Monteiro MD Unavailable [phone] Marcelo Artis PA-C Unavailable [phone] Rodrigo Man PA-C Unavailable Jeana-Noreen Miles APRN FILLING CARRIER Unavailable Sudha Greene NP Primary Care Provider [phone] Agatha Null DPM, Podiatry /Foot and Ankle Surgery Unavailable [facility] [place] [facility] Unavailable Reason for Visit * Reason Comments Medication Refill zolpidem (AMBIEN) 5 MG tablet Encounter Details Date Type Department Care Team (Late st Contact Info) Description 02/20/2018 Refill [facility] [place] [address] [facility] [address] [place] [address] Vanda Guerrero MD [address] [facility] [place] [address] Medication Refill (zolpidem (AMBIEN) 5 MG tablet) [...] in station out basket or on MA/ASSOCIATE ENTERTAINMENT EDITOR/RN desk * Telephone Encounter - Gayathri Mcallister RN - 02/21/2018 3:33 PM CDT EYE TECHNICIAN checked: patient refilled: 06/12, 07/07 and 10/04 all for #15 tablets. Has not picked up all refills, but the script . Gayathri Mcallister RN Message handled by Nurse Triage. * Telephone Encounter - Marias Matthew - 02/21/2018 8:04 AM CDT Requested [...] documented as of this encounter Care Teams Automobile Technician Relationship Specialty Start Date End Date Vanda Guerrero MD [address] [place] [address] [place] [address] PCP - General Internal Medicine 04/08/15 01/08/19 Vanda Guerrero MD [address] [place] [address] [place] [address] PCP - Assigned PCP 07/24/16 06/15/18 Noreen Flores APRN FILLING CARRIER [address] [place] [address] [place] [address] PCP - Assigned PCP 06/16/18 08/13/18 Noreen Flores APRN FILLING CARRIER [address] [facility] [place] [address] PCP - General Nurse Practitioner 01/09/19 12/12/21 Sudha Greene NP [address] [address] PCP - General 11/01/22 Noreen Flores, SEAN FILLING CARRIER [address] [place] [address] [place] [address] Assigned PCP 06/16/18 05/26/22 Kalyan Galvan Personal Advocate & Liaison (PAL) 08/08/19 04/26/21 [facility] [address] [place] [address] [place] [address] Pharmacist Pharmacist 10/14/19 12/01/20 Eduardo Sharma MD [address] [place] [address] [place] [id number] Assigned Sleep Provider 04/02/2005/07 [place] [address] [facility] [place] [address] [place] [address] Assigned Musculoskeletal Provider 04/02/20 08/24/20 Marcelo Artis PA-C [address] [facility] [place] [address] [place], [place] 806077 Assigned Musculoskeletal Provider 08/25/20 08/20/21 Rodrigo Man PA-C [address] [place] [address] [place] [id number] Assigned Surgical Provider 08/25/20 11/27/20 Noreen Flores APRN FILLING CARRIER [address] [facility] [place] [address] Assigned PCP 08/05/22 03/16/23 Agatha Null DPM, Podiatry/Foot and Ankle Surgery [address] [place] [address] Assigned Musculoskeletal Provider 11/04/22 [facility] - [place] [facility] 330 [facility] [place] [id number] Assigned PCP 07/05/23 documented as of this encounter
--- OUTSIDE RECORDS SUMMARY | 2023-10-18 09:50 | XMS_ITS | Encounter Summary ---
Author Name Unknown Organization [place] Address [address] [place] [address] Care Team Providers Care Implementation Technician Name Role Phone Noreen Flores APRN, CNP Unavailable Noreen Flores APRN, CNP Primary Car e Provider Kalyan Galvan Unavailable Unavailable Lashae Trevino [facility] Unavailable Eduardo Sharma MD Unavailable Rios Monteiro MD Unavailable Marcelo Artis PA-C Unavailable [phone] Rodrigo Man PA-C Unavailable [phone] Noreen Flores APRN, CNP Unavailable Sudha Greene NP Primary Care Provider [phone] Agatha Null DPM, Podiatry /Foot and Ankle Surgery Unavailable Clinic - [place] [facility] Unavailable Reason for Visit * Reason Onset Date Comments Medication Refill 04/25/2019 metFORMIN (GLU COPHAGE) 500 MG tablet Encounter Details Date Type Department Care Team (Late st Contact Info) Description 04/25/2019 Refill [facility] [address] [facility] [address] [place] [address] Noreen Flores APRN CNP [address] [facility] [place] [address] Medication Refill (metFORMIN (GLUCOPHAGE) 500 MG tablet) [...] Kimberley Bryan RN - 04/28/2019 11:47 AM CLINICAL DIETICIAN Routing refill request to provider for review/approval because: Labs not current: LDL, creatinine Due for appointment ICAL DIETICIAN * Telephone Encounter - Lara Villalba - [...] & Orders section of the refill encounter. ICAL DIETICIAN documented in this encounter Plan of Treatment [...] documented as of this encounter Care Teams Implementation Technician Relationship Specialty Start Date End Date Noreen Flores APRN HOT STICK MAN [address] [place] [address] [place] [address] PCP - General Nurse Practitioner 01/09/19 12/12/21 Sudha Greene NP [facility] & [facility] - [address] [place] [address] PCP - General 11/01/22 Noreen Flores APRN HOT STICK MAN [address] [place] [address] [place] [address] Assigned PCP 06/16/18 05/26/22 Kalyan Galvan Personal Advocate & Liaison (PAL) 08/08/19 04/26/21 [facility] [address] [place] [address] [place] [address] Pharmacist Pharmacist 10/14/19 12/01/20 Eduardo Sharma MD [address] [place] [address] [place] [address] Assigned Sleep Provider 04/02/2005/07 [place] [address] [place] [address] [place] [address] Assigned Musculoskeletal Provider 04/02/20 08/24/20 Marcelo Artis PA-C [address] [place] [address] [place] [address] Assigned Musculoskeletal Provider 08/25/20 08/20/21 Rodrigo Man PA-C [address] [place] [address] [place] 66[address]85 Assigned Surgical Provider 08/25/20 11/27/20 Noreen Flores APRN HOT STICK MAN [address] [place] [address] [place] [address] Assigned PCP 08/05/22 03/16/23 Agatha Null, MARÍA, Podiatry/Foot and Ankle Surgery [address] [place] [address] Assigned Musculoskeletal Provider 11/04/22 Clinic - [place] [address] [place] [id number] Assigned PCP 07/05/23 documented as of this encounter
--- OUTSIDE RECORDS SUMMARY | 2023-10-18 09:50 | XMS_ITS | Encounter Summary ---
Author Name Unknown Organization [place] Address [address] [place] [address] Care Team Providers Care Classroom Instructional Aide Name Role Phone Noreen Flores APRN APPLICATION INFRASTRUCTURE ENGINEER Unavailable Noreen Flores APRN APPLICATION INFRASTRUCTURE ENGINEER Primary Car e Provider Kalyan Galvan Unavailable Unavailable Lashae Trevino [facility] Unavailable [phone] Eduardo Sharma MD Unavailable Rios Monteiro MD Unavailable [phone] Marcelo Artis PA-C Unavailable [phone] Rodrigo Man PA-C Unavailable [phone] Noreen Flores APRN APPLICATION INFRASTRUCTURE ENGINEER Unavailable Sudha Greene NP Primary Care Provider Agatha Null DPM, Podiatry /Foot and Ankle Surgery Unavailable Clinic - [place] [facility] Unavailable Encounter Details Date Type Department Care Team (Late st Contact Info) Description 10/14/2019 [facility] [address] [facility] [address] [place] [address] Lashae Trevino, [facility] 1440 [facility] [place] [address] Social History [...] Friends and Family Patient declined 08/08/2019 Attends Jainism Services Patient declined 07/13 Active Member of [...] Answer Date Recorded PHQ-2 Score 2 07/25/2018 [facility] [place] of Occupat ional Health - Occupational Stress [...] Total Score: 9 08/09/19 20 7:03 AM X RAY PHYSICIAN documented as of this encounter Care Teams Classroom Instructional Aide Relationship Specialty Start Date End Date Noreen Flores APRN APPLICATION INFRASTRUCTURE ENGINEER [address] [place] [address] [place] [address] PCP - General Nurse Practitioner 01/09/19 12/12/21 Sudha Greene, MAURICIO [address] [address] PCP - General 11/01/22 Noreen Flores APRN APPLICATION INFRASTRUCTURE ENGINEER [address] [place] [address] [place] [address] Assigned PCP 06/16/18 05/26/22 Kalyan Galvan Personal Advocate & Liaison (PAL) 08/08/19 04/26/21 Lashae Trevino, [facility] [address] [place] [address] Pharmacist Pharmacist 10/14/19 12/01/20 Eduardo Sharma MD [address] [place] [address] [place] [address] Assigned Sleep Provider 04/02/2005/07 [place] [address] [facility] 300 [place] [address] Assigned Musculoskeletal Provider 04/02/20 08/24/20 Marcelo Artis PA-C [address] [address] Assigned Musculoskeletal Provider 08/25/20 08/20/21 Rodrigo Man PA-C [address] [facility] 450 [place] [address] Assigned Surgical Provider 08/25/20 11/27/20 Noreen Flores APRN APPLICATION INFRASTRUCTURE ENGINEER [address] [place] [address] [place] [address] Assigned PCP 08/05/22 03/16/23 Agatha Null DPM, Podiatry/Foot and Ankle Surgery [address] [facility] 300 [place] [address] Assigned Musculoskeletal Provider 11/04/22 [facility] - [place] [facility] 3305 [place] [address] Assigned PCP 07/05/23 documented as of this encounter
--- OUTSIDE RECORDS SUMMARY | 2023-10-18 09:50 | XMS_ITS | Encounter Summary ---
Author Name Unknown Organization [place] Address [address] [place] [address] Care Team Providers Care International Marketing Intern Name Role Phone Noreen Flores APRN FINANCIAL SERVICES MANAGER Unavailable Noreen Flores APRN FINANCIAL SERVICES MANAGER Primary Car e Provider Kalyan Galvan Unavailable Unavailable Lashae Trevino [facility] Unavailable [phone] Eduardo Sharma MD Unavailable Rios Monteiro MD Unavailable [phone] Marcelo Artis PA-C Unavailable Rodrigo Man PA-C Unavailable [phone] Noreen Flores APRN, CNP Unavailable Sudha Greene NP Primary Care Provider Agatha Null DPM, Podiatry /Foot and Ankle Surgery Unavailable Clinic - [facility] [place] [facility] Unavailable Encounter Details Date Type Department Care Team (Late st Contact Info) Description 10/06/[address] [facility] [address] [address] Patricia Bonilla Social History Tobacco [...] PHQ-2 Score 2 07/25/2018 [facility] [place] of Occupat ional Health - Occupational Stress [...] Total Score: 9 08/09/19 20 7:03 AM ORGANIZATIONAL PSYCHOLOGIST documented as of this encounter Care Teams International Marketing Intern Relationship Specialty Start Date End Date Noreen Flores APRN FINANCIAL SERVICES MANAGER [address] [place] [address] [place] [address] PCP - General Nurse Practitioner 01/09/19 12/12/21 Sudha Greene NP [address] [address] PCP - General 11/01/22 Noreen Flores APRN FINANCIAL SERVICES MANAGER [address] [place] [address] [place] [address] Assigned PCP 06/16/18 05/26/22 Kalyan Galvan Personal Advocate & Liaison (PAL) 08/08/19 04/26/21 [address] [facility] 1440 [facility] [place] [address] Pharmacist Pharmacist 10/14/19 12/01/20 Eduardo Sharma MD [address] [facility] [address] [place] [address] Assigned Sleep Provider 04/02/2005/07 [place] [address] [facility] 300 [place] [address] Assigned Musculoskeletal Provider 04/02/20 08/24/20 Marcelo Artis PA-C [address] [facility] 300 [place] [address] Assigned Musculoskeletal Provider 08/25/20 08/20/21 Rodrigo Man PA-C 6545 [facility] 450 [place] [address] Assigned Surgical Provider 08/25/20 11/27/20 Noreen Flores APRN FINANCIAL SERVICES MANAGER [address] [place] [address] [place] [address] Assigned PCP 08/05/22 03/16/23 Agatha Null DPM, Podiatry/Foot and Ankle Surgery [address] [facility] 300 [place] [address] Assigned Musculoskeletal Provider 11/04/22 [facility] - [facility] [place] [facility] 3305 [facility] [place] [id number] Assigned PCP 07/05/23 documented as of this encounter
--- OUTSIDE RECORDS SUMMARY | 2023-10-18 09:50 | XMS_ITS | Encounter Summary ---
Author Name Unknown Organization [place] Address [address] [place] [address] Care Team Providers Care Anatomy And Physiology Instructor Name Role Phone Noreen Flores APRN BOAT DRIVER Unavailable Noreen Flores APRN BOAT DRIVER Primary Car e Provider Kalyan Galvan Unavailable Unavailable Lashae Trevino [facility] Unavailable [phone] Eduardo Sharma MD Unavailable Rios Monteiro MD Unavailable Marcelo Artis PA-C Unavailable [phone] Rodrigo Man PA-C Unavailable [phone] Noreen Flores APRN, CNP Unavailable Sudha Greene NP Primary Care Provider Agatha Null DPM, Podiatry /Foot and Ankle Surgery Unavailable Clinic - [place] [facility] Unavailable Encounter Details Date Type Department Care Team (Late st Contact Info) Description 01/22/2019 Myra Moya [facility] [place] [address] [facility] [address] [place] [address] Marcelo Trejo, PT [address] [place] [address] Social History Tobacco Use Types [...] documented as of this encounter Care Teams Anatomy And Physiology Instructor Relationship Specialty Start Date End Date Noreen Flores APRN BOAT DRIVER [address] [place] [address] [place] [address] PCP - General Nurse Practitioner 01/09/19 12/12/21 Sudha Greene, MAURICIO [address] [address] PCP - General 11/01/22 Noreen Flores APRN BOAT DRIVER [address] [place] [address] [place] [address] Assigned PCP 06/16/18 05/26/22 Kalyan Galvan Personal Advocate & Liaison (PAL) 08/08/19 04/26/21 Lashae Trevino, [facility] [place] [address] Pharmacist Pharmacist 10/14/19 12/01/20 Eduardo Sharma MD [address] [place] [address] [place] [address] Assigned Sleep Provider 04/02/2005/07 [place] [address] [facility] [address] [place] [address] Assigned Musculoskeletal Provider 04/02/20 08/24/20 Marcelo Artis PA-C [address] [facility] 300 [place] [address] Assigned Musculoskeletal Provider 08/25/20 08/20/21 Rodrigo Man PA-C [address] [place] [address] [place] [address] Assigned Surgical Provider 08/25/20 11/27/20 Noreen Flores APRN CNP [address] [place] [address] [place] [address] Assigned PCP 08/05/22 03/16/23 Agatha Null DPM, Podiatry/Foot and Ankle Surgery [address] [place] [address] [address] [place] [address] Assigned Musculoskeletal Provider 11/04/22 [facility] [place] [facility] [address] [place] [address] [place] [address] Assigned PCP 07/05/23 documented as of this encounter
--- OUTSIDE RECORDS SUMMARY | 2023-10-18 09:50 | XMS_ITS | Encounter Summary ---
Author Name Unknown Organization [place] Address [address] [place] [address] Care Team Providers Care Audit Practice Intern Name Role Phone Vanda Guerrero MD Primary Care Provider [phone] Noreen Flores APRN AMPOULE INSPECTOR Unavailable Noreen Flores APRN, CNP Primary Car e Provider Kalyan Galvan Unavailable Unavailable Lashae Trevino [facility] Unavailable [phone] Eduardo Sharma MD Unavailable Rios Monteiro MD Unavailable Marcelo Artis PA-C Unavailable [phone] Rodrigo Man PA-C Unavailable [phone] Noreen Flores APRN AMPOULE INSPECTOR Unavailable Sudha Greene NP Primary Care Provider Agatha Null DPM, Podiatry /Foot and Ankle Surgery Unavailable [facility] [place] [facility] Unavailable Encounter Details Date Type Department Care Team (Late st Contact Info) Description 12/05/2018 [facility] [place] [address] [place] [address] Noreen Flores APRN CNP [address] [facility] [place] [address] Social History Tobacco Use Types Packs/Day Years [...] Depression Total Score: 7 06/25/19 9:49 AM CANDY VENDOR documented as of this encounter Care Teams Audit Practice Intern Relationship Specialty Start Date End Date Vanda Guerrero MD [address] [place] [address] [place] [address] PCP - General Internal Medicine 04/08/15 01/08/19 Noreen Flores APRN AMPOULE INSPECTOR [address] [place] [address] [place] [address] PCP - General Nurse Practitioner 01/09/19 12/12/21 Sudha Greene NP [address] [address] PCP - General 11/01/22 Noreen Flores APRN AMPOULE INSPECTOR [address] [place] [address] [place] [address] Assigned PCP 06/16/18 05/26/22 Kalyan Galvan Personal Advocate & Liaison (PAL) 08/08/19 04/26/21 Lashae Trevino [facility] [address] [facility] [place] [address] Pharmacist Pharmacist 10/14/19 12/01/20 Eduardo Sharma MD [address] [place] [address] [place], [place] [address] Assigned Sleep Provider 04/02/2005/07 [place] [address] [facility] [address] [place] [address] Assigned Musculoskeletal Provider 04/02/20 08/24/20 Marcelo Artis PA-C 150[address] [facility] 300 [place] [address] Assigned Musculoskeletal Provider 08/25/20 08/20/21 Rodrigo Man PA-C [address] [place] [address] [place], [place] [address] Assigned Surgical Provider 08/25/20 11/27/20 Noreen Flores APRN AMPOULE INSPECTOR [address] [facility] [place] [address] Assigned PCP 08/05/22 03/16/23 Agatha Null, DPM, Podiatry/Foot and Ankle Surgery [address] [facility] [address] [place], [place] 708847 Assigned Musculoskeletal Provider 11/04/22 [facility] [place] [address] [address] Assigned PCP 07/05/23 documented as of this encounter
--- OUTSIDE RECORDS SUMMARY | 2023-10-18 09:50 | XMS_ITS | Encounter Summary ---
Author Name Unknown Organization [place] Address [address] [place] [address] Care Team Providers Care Surgical Forceps Fabricator Name Role Phone Vanda Guerrero MD Primary Care Provider [phone] Vanda Guerrero MD Unavailable [phone] Jeana-Noreen Miles APRN MACHINE TURNER Unavailable [facility]-Noreen Miles APRN MACHINE TURNER Unavailable [facility]-JdNoreen castro APRN MACHINE TURNER Primary Car e Provider Kalyan Galvan Unavailable Unavailable Lashae Trevino [facility] Unavailable Eduardo Sharma MD Unavailable Rios Monteiro MD Unavailable [phone] Marcelo Artis PA-C Unavailable Rodrigo ManC Unavailable Jeana-JdNoreen castro APRN MACHINE TURNER Unavailable Sudha Greene NP Primary Care Provider [phone] Agatha Null DPM, Podiatry /Foot and Ankle Surgery Unavailable [facility] [place] [facility] Unavailable Reason for Visit * Reason Onset Date Comments Refill Request 03/04/2018 loratadine-pseud oePHEDrine ([facility]) 10- 240 MG per 24 hr tablet Encounter Details Date Type Department Care Team (Late st Contact Info) Description 03/04/2018 Refill [facility] [place] [address] [place] [phone] Vanda Guerrero MD [address] [facility] [place] [address] Refill Request (loratadine-pseudoePHED rine ([facility] ALLER[facility] RELIE[facility]-D) [...] and in station out basket or on MA/OYSTER GROWER/RN desk * Telephone Encounter - Kartik Javier [...] Drug not on the G, P or [facility] refill protocol or controlled substance documented [...] documented as of this encounter Care Teams Surgical Forceps Fabricator Relationship Specialty Start Date End Date Vanda Guerrero MD [address] [place] [address] [place] [address] PCP - General Internal Medicine 04/08/15 01/08/19 Vanda Guerrero MD [address] [place] [address] [place] [address] PCP - Assigned PCP 07/24/16 06/15/18 Noreen Flores APRN MACHINE TURNER [address] [place] [address] [place] [address] PCP - Assigned PCP 06/16/18 08/13/18 Noreen Flores APRN MACHINE TURNER [address] [place] [address] [place] [address] PCP - General Nurse Practitioner 01/09/19 12/12/21 Sudha Greene NP [address] [address] PCP - General 11/01/22 Noreen Flores APRN MACHINE TURNER [address] [place] [address] [place] [address] Assigned PCP 06/16/18 05/26/22 Kalyan Galvan Personal Advocate & Liaison (PAL) 08/08/19 04/26/21 [facility] [address] [facility] [place] [address] Pharmacist Pharmacist 10/14/19 12/01/20 Eduardo Sharma MD [address] [place] [address] [place] [address] Assigned Sleep Provider 04/02/2005/07 [place] [address] [place] [address] [place] [address] Assigned Musculoskeletal Provider 04/02/20 08/24/20 Marcelo Artis PA-C [address] [place] [address] [place] [address] Assigned Musculoskeletal Provider 08/25/20 08/20/21 Rodrigo Man PA-C [address] [place] [address] [place] [address]35525 Assigned Surgical Provider 08/25/20 11/27/20 Noreen Flores APRN MACHINE TURNER [address] [place] [address] [place] [address] Assigned PCP 08/05/22 03/16/23 Agatha Null, MARÍA, Podiatry/Foot and Ankle Surgery [address] [place] [address] Assigned Musculoskeletal Provider 11/04/22 [facility] [place] [address] [address] Assigned PCP 07/05/23 documented as of this encounter
--- OUTSIDE RECORDS SUMMARY | 2023-10-18 09:50 | XMS_ITS | Encounter Summary ---
Author Name Unknown Organization [place] Address [address] [place] [address] Care Team Providers Care Entertainment Director Name Role Phone Vanda Guerrero MD Primary Care Provider [phone] Vanda Guerrero MD Unavailable [phone] Jeana-Noreen Miles APRN WATCHMAKING TEACHER Unavailable [facility]-Noreen Miles APRN WATCHMAKING TEACHER Unavailable Jeana-Noreen Miles SERVICE MECHANIC WATCHMAKING TEACHER Primary Car e Provider Kalyan Galvan Unavailable Unavailable Lashae Trevino [facility] Unavailable Eduardo Sharma MD Unavailable Rios Monteiro MD Unavailable Marcelo Artis PA-C Unavailable [phone] Rodrigo ManC Unavailable [phone] Jeana-Noreen Miles APRN WATCHMAKING TEACHER Unavailable Sudha Greene NP Primary Care Provider Agatha Null DPM, Podiatry /Foot and Ankle Surgery Unavailable [facility] [place] [facility] Unavailable Encounter Details Date Type Department Care Team (Late st Contact Info) Description 02/17/2018 [facility] [address] [address] Liya Gonzalez RN Social History Tobacco Use [...] as of this encounter Care Teams Entertainment Director Relationship Specialty Start Date End Date Vanda Guerrero MD [address] [place] [address] [place] [address] PCP - General Internal Medicine 04/08/15 01/08/19 Vanda Guerrero MD [address] [place] [address] [place] [address] PCP - Assigned PCP 07/24/16 06/15/18 Noreen Flores APRN WATCHMAKING TEACHER [address] [place] [address] [place] [address] PCP - Assigned PCP 06/16/18 08/13/18 Noreen Flores APRN WATCHMAKING TEACHER [address] [place] [address] [place] [address] PCP - General Nurse Practitioner 01/09/19 12/12/21 Sudha Greene NP [address] [address] PCP - General 11/01/22 Noreen Flores APRN WATCHMAKING TEACHER [address] [place] [address] [place] [address] Assigned PCP 06/16/18 05/26/22 Kalyan Galvan Personal Advocate & Liaison (PAL) 08/08/19 04/26/21 Lashae Trevino, [facility] [address] [place] [address] [place] [phone] Pharmacist Pharmacist 10/14/19 12/01/20 Eduardo Sharma MD [address] [place] [address] [place] [address] Assigned Sleep Provider 04/02/2005/07 [place] [address] [place] [address] [place] [address] Assigned Musculoskeletal Provider 04/02/20 08/24/20 Marcelo Artis PA-C [address] [place] [address] [place] [address] Assigned Musculoskeletal Provider 08/25/20 08/20/21 Rodrigo Man PA-C [address] [place] [address] [place] [address] Assigned Surgical Provider 08/25/20 11/27/20 Noreen Flores APRN WATCHMAKING TEACHER [address] [facility] [place] [address] Assigned PCP 08/05/22 03/16/23 Agatha Null DPM, Podiatry/Foot and Ankle Surgery [address] [place] [address] Assigned Musculoskeletal Provider 11/04/22 [facility] [address] [facility] [place] [address] Assigned PCP 07/05/23 documented as of this encounter
--- OUTSIDE RECORDS SUMMARY | 2023-10-18 09:50 | XMS_ITS | Encounter Summary ---
Author Name Unknown Organization [place] Address [address] [place] [address] Care Team Providers Care Firer Low Pressure Name Role Phone Noreen Flores APRN PERINATAL BREASTFEEDING ASSISTANT Unavailable Noreen Flores APRN PERINATAL BREASTFEEDING ASSISTANT Primary Car e Provider Kalyan Galvan Unavailable Unavailable Lashae Trevino [facility] Unavailable [phone] Eduardo Sharma MD Unavailable Rios Monteiro MD Unavailable Marcelo Artis PA-C Unavailable Rodrigo Man PA-C Unavailable [phone] Noreen Flores APRN PERINATAL BREASTFEEDING ASSISTANT Unavailable Sudha Greene NP Primary Care Provider [phone] Agatha Null DPM, Podiatry /Foot and Ankle Surgery Unavailable [facility] - [facility] [place] [facility] Unavailable Encounter Details Date Type Department Care Team (Late st Contact Info) Description 12/23/2019 [facility] [place] [address] [facility] [address] [place] [address] Noreen Flores APRN CNP [address] [facility] [place] [id number] Chronic seasonal allergic rhinitis Social History Tobacco [...] Score 2 07/25/2018 [facility] [place] of Occupat ional Health - Occupational Stress [...] 2:11 PM CDT Please call [facility] and find out why they are having [...] Total Score: 9 08/09/19 20 7:03 AM ACQUISITION COST ESTIMATOR documented as of this encounter Care Teams Firer Low Pressure Relationship Specialty Start Date End Date Noreen Flores APRN PERINATAL BREASTFEEDING ASSISTANT [address] [facility] [place] [address] PCP - General Nurse Practitioner 01/09/19 12/12/21 Sudha Greene NP [address] [address] PCP - General 11/01/22 Noreen Flores APRN PERINATAL BREASTFEEDING ASSISTANT [address] [place] [address] [place] [address] Assigned PCP 06/16/18 05/26/22 Kalyan Galvan Personal Advocate & Liaison (PAL) 08/08/19 04/26/21 [facility] [address] [place] [address] [place] [address] Pharmacist Pharmacist 10/14/19 12/01/20 Eduardo Sharma MD [address] [address] Assigned Sleep Provider 04/02/2005/07 [place] [address] [address] Assigned Musculoskeletal Provider 04/02/20 08/24/20 Marcelo Artis PA-C [address] [address] Assigned Musculoskeletal Provider 08/25/20 08/20/21 Rodrigo Man PA-C [address] [place] [address] Assigned Surgical Provider 08/25/20 11/27/20 Noreen Flores APRN PERINATAL BREASTFEEDING ASSISTANT [address] [facility] [place] [address] Assigned PCP 08/05/22 03/16/23 Agatha Null DPM, Podiatry/Foot and Ankle Surgery [address] [place] [address] [place] [address]397 Assigned Musculoskeletal Provider 11/04/22 [facility] [address] [facility] [place] [id number] Assigned PCP 07/05/23 documented as of this encounter
--- OUTSIDE RECORDS SUMMARY | 2023-10-18 09:50 | XMS_ITS | Encounter Summary ---
Author Name Unknown Organization [place] Address [address] [place] [address] Care Team Providers Care International Specialist Name Role Phone Noreen Flores APRN GLASS WORKER Unavailable Noreen Flores APRN GLASS WORKER Primary Car e Provider Kalyan Galvan Unavailable Unavailable Lashae Trevino [facility] Unavailable [phone] Eduardo Sharma MD Unavailable Rios Monteiro MD Unavailable [phone] Marcelo Artis PA-C Unavailable Rodrigo Man PA-C Unavailable [phone] Noreen Flores APRN GLASS WORKER Unavailable Sudha Greene NP Primary Care Provider Agatha Null DPM, Podiatry /Foot and Ankle Surgery Unavailable [facility] - [facility] [place] [facility] Unavailable Encounter Details Date Type Department Care Team (Late st Contact Info) Description 05/31/2019 [facility] [place] [address] [place] [address] Noreen Flores APRN CNP [address] [facility] [place] [address] Chronic seasonal allergic [...] Angel Faria RN - 06/02/2019 8:06 AM PACKAGE CLERK Previous Rx did not successful e-scribe to pharmacy. Routing to PCP for approval. Please sent via fax. Multiple attempts in the past year with unsuccessful e-scribing. Route back to [facility] when completed. - Radu Faria RN Triage [facility] AGE CLERK documented in this encounter Plan of [...] as of this encounter Care Teams International Specialist Relationship Specialty Start Date End Date Noreen Flores APRN GLASS WORKER [facility] [place] [address] PCP - General Nurse Practitioner 01/09/19 12/12/21 Sudha Greene NP [address] [address] PCP - General 11/01/22 Noreen Flores APRN GLASS WORKER [address] [facility] [place] [address] Assigned PCP 06/16/18 05/26/22 Kalyan Galvan Personal Advocate & Liaison (PAL) 08/08/19 04/26/21 Lashae Trevino, [facility] [address] [place] [address] [place] [address] Pharmacist Pharmacist 10/14/19 12/01/20 Eduardo Sharma MD [address] [address] [place] [address] Assigned Sleep Provider 04/02/2005/07 [place] [address] [place] [place] [address] Assigned Musculoskeletal Provider 04/02/20 08/24/20 Marcelo Artis PA-C [address] [place] [address] Assigned Musculoskeletal Provider 08/25/20 08/20/21 Rodrigo Man PA-C [address] [address] [place] [address] Assigned Surgical Provider 08/25/20 11/27/20 Noreen Flores APRN GLASS WORKER [facility] [place] [address] Assigned PCP 08/05/22 03/16/23 Agatha Null, DPNita, Podiatry/Foot and Ankle Surgery [address] [place] [address] Assigned Musculoskeletal Provider 11/04/22 [facility] - [facility] [place] [address] [place] [address] Assigned PCP 07/05/23 documented as of this encounter
--- OUTSIDE RECORDS SUMMARY | 2023-10-18 09:50 | XMS_ITS | Encounter Summary ---
Author Name Unknown Organization [place] Address [address] [place] [address] Care Team Providers Care Wire Charger Name Role Phone Noreen Flores APRN, CNP Unavailable Noreen Flores APRN LUGGER Primary Car e Provider Kalyan Galvan Unavailable Unavailable Lashae Trevino [facility] Unavailable Eduardo Sharma MD Unavailable Rios Monteiro MD Unavailable Marcelo Artis PA-C Unavailable [phone] Rodrigo Man PA-C Unavailable [phone] Noreen Flores APRN LUGGER Unavailable Sudha Greene NP Primary Care Provider Agatha Null DPM, Podiatry /Foot and Ankle Surgery Unavailable [facility] [place] [facility] Unavailable Reason for Visit * Reason Onset Date Comments Outreach 12/09/2019 Encounter Details Date Type Department Care Team (Late st Contact Info) Description 12/09/2019 [facility]ice [facility] [place] [address] [place] [phone] Noreen Flores APRN CNP [address] 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 Additionally, pharmacy requested that an order be faxed for the Loratadine-d as the e-prescribe didnot transmit to them. Fax number: [phone] Kalyan Galvan, EMT at 9:53 AM on December 11, 2019 [facility] Health Guide [phone] documented in this encounter Plan of Treatment [...] Total Score: 9 08/09/19 20 7:03 AM DIRECTOR OF COUNSELING documented as of this encounter Care Teams Wire Charger Relationship Specialty Start Date End Date Noreen Flores APRN LUGGER [address] [place] [address] [place] [address] PCP - General Nurse Practitioner 01/09/19 12/12/21 Sudha Greene NP [address] [address] PCP - General 11/01/22 Noreen Flores APRN LUGGER [address] [place] [address] [place] [address] Assigned PCP 06/16/18 05/26/22 Kalyan Galvan Personal Advocate & Liaison (PAL) 08/08/19 04/26/21 Lashae Trevino, [facility] [address] [facility] [place] [phone] Pharmacist Pharmacist 10/14/19 12/01/20 Eduardo Sharma MD [address] [address] [place] [address] Assigned Sleep Provider 04/02/2005/07 [place] [address] [place] [place] [address] Assigned Musculoskeletal Provider 04/02/20 08/24/20 Marcelo Artis PA-C [address] [place] [address] [place] [address] Assigned Musculoskeletal Provider 08/25/20 08/20/21 Rodrigo Man PA-C [address] [place] [address] [place] [address] Assigned Surgical Provider 08/25/20 11/27/20 Noreen Flores APRN LUGGER [address] [facility] [place] [address] Assigned PCP 08/05/22 03/16/23 Agatha Null, DPM, Podiatry/Foot and Ankle Surgery [address] [place] [address] Assigned Musculoskeletal Provider 11/04/22 [facility] [place] [address] [place] [address] Assigned PCP 07/05/23 documented as of this encounter
--- OUTSIDE RECORDS SUMMARY | 2023-10-18 09:50 | XMS_ITS | Encounter Summary ---
Author Name Unknown Organization [place] Address [address] [place] [address] Care Team Providers Care Call Centre Supervisor Name Role Phone Vanda Guerrero MD Primary Care Provider [phone] Vanda Guerrero MD Unavailable [phone] Jeana-Noreen Miles APRN METAL FITTERS AND MACHINISTS Unavailable [facility] APRN METAL FITTERS AND MACHINISTS Unavailable [facility]-JdNoreen castro APRN METAL FITTERS AND MACHINISTS Primary Car e Provider Kalyan Galvan Unavailable Unavailable Lashae Trevino [facility] Unavailable Eduardo Sharma MD Unavailable Rios Monteiro MD Unavailable Marcelo Artis PA-C Unavailable Rodrigo ManC Unavailable Jeana-JdNoreen castro APRN METAL FITTERS AND MACHINISTS Unavailable Sudha Greene NP Primary Care Provider [phone] Agatha Null DPM, Podiatry /Foot and Ankle Surgery Unavailable [facility] [place] [facility] Unavailable Reason for Visit * Reason Onset Date Comments MyChart Communication 02/05/2018 Encounter Details Date Type Department Care Team (Late st Contact Info) Description 02/05/2018 [facility] [place] [address] [place] [address] Drive [address] [place] [address] Vanda Guerrero MD [address] [place] [address] [place] [address] MyChart Communication Social History Tobacco Use Types [...] Total Score: 12 06/12/ 018 1:02 PM WIRE COATING OPERATOR METAL documented as of this encounter Care Teams Call Centre Supervisor Relationship Specialty Start Date End Date Vanda Guerrero MD [address] [place] [address] [place] [address] PCP - General Internal Medicine 04/08/15 01/08/19 Vanda Guerrero MD [address] [place] [address] [place] [address] PCP - Assigned PCP 07/24/16 06/15/18 Noreen Flores APRN METAL FITTERS AND MACHINISTS [address] [place] [address] [place] [address] PCP - Assigned PCP 06/16/18 08/13/18 Noreen Flores APRN METAL FITTERS AND MACHINISTS [address] [facility] [place] [address] PCP - General Nurse Practitioner 01/09/19 12/12/21 Sudha Greene NP [address] [address] PCP - General 11/01/22 [facility] METAL FITTERS AND MACHINISTS [address] [place] [address] [place] [address] Assigned PCP 06/16/18 05/26/22 Kalyan Galvan Personal Advocate & Liaison (PAL) 08/08/19 04/26/21 [facility] [address] [place] [address] [place] [address] Pharmacist Pharmacist 10/14/19 12/01/20 Eduardo Sharma MD [address] [place] [address] Assigned Sleep Provider 04/02/2005/07 [place] [address] [facility] 300 [place] [address] Assigned Musculoskeletal Provider 04/02/20 08/24/20 Marcelo Artis PA-C [address] [facility] [address] [place] [address] Assigned Musculoskeletal Provider 08/25/20 08/20/21 Rodrigo Man PA-C [address] [place] [address] [place] [address] Assigned Surgical Provider 08/25/20 11/27/20 Noreen Flores APRN METAL FITTERS AND MACHINISTS 3305 [facility] [place] [address] Assigned PCP 08/05/22 03/16/23 Agatha Null DPM, Podiatry/Foot and Ankle Surgery [address] [place] [place] [address] Assigned Musculoskeletal Provider 11/04/22 [facility] [place] [facility] 3[address] [facility] [place] [address] Assigned PCP 07/05/23 documented as of this encounter
--- OUTSIDE RECORDS SUMMARY | 2023-10-18 09:50 | XMS_ITS | Encounter Summary ---
Author Name Unknown Organization [place] Address [address] [place] [address] Care Team Providers Care Structural Analyst Name Role Phone Noreen Flores APRN, CNP Unavailable Noreen Flores APRN, CNP Primary Car e Provider Kalyan Galvan Unavailable Unavailable Lashae Trevino [facility] Unavailable Eduardo Sharma MD Unavailable Rios Monteiro MD Unavailable Marcelo Artis PA-C Unavailable Rodrigo Man PA-C Unavailable [phone] Noreen Flores APRN, CNP Unavailable Sudha Greene NP Primary Care Provider [phone] Agatha Null DPM, Podiatry /Foot and Ankle Surgery Unavailable [facility] - [facility] Unavailable Reason for Visit * Reason Onset Date Comments Refill Request 05/29/2020 omeprazole (PRIL OSEC) [address] capsule Encounter Details Date Type Department Care Team (Late st Contact Info) Description 05/29/2020 Refill [facility] [address] [facility] [address] [place] [address] Noreen Flores APRN CONSTRUCTION EXECUTIVE [address] [facility] [place] [address] Refill Request (omeprazole (PRILOSEC) [address] [...] Friends and Family Patient declined 08/08/2019 Attends [employer] Patient declined 07/13 Active Member of [...] Answer Date Recorded PHQ-2 Score 2 07/25/2018 [facility] of Occupat ional Health - Occupational Stress [...] Keyona Mantilla RN - 05/31/2020 10:42 AM TRAY FILLER Patient has refills remaining with requesting pharmacy. Keyona Palacios - Registered Nurse [facility] Acute and Diagnostic Services FILLER * Telephone Encounter - Kartik Javier - 05/29/2020 5:01 PM CST Alternative Requested: Insurance covers max 90 days in a year. Please submit PA to continue therapy. FILLER documented in this encounter Plan of [...] documented as of this encounter Care Teams Structural Analyst Relationship Specialty Start Date End Date Noreen Flores APRN CONSTRUCTION EXECUTIVE [address] [place] [address] [place] [address] PCP - General Nurse Practitioner 01/09/19 12/12/21 Sudha Greene NP [address] [address] PCP - General 11/01/22 Noreen Flores APRN CONSTRUCTION EXECUTIVE [address] [place] [address] [place] [address] Assigned PCP 06/16/18 05/26/22 Kalyan Galvan Personal Advocate & Liaison (PAL) 08/08/19 04/26/21 Lashae Trevino, [facility] [address] [facility] [place] [id number] Pharmacist Pharmacist 10/14/19 12/01/20 Eduardo Sharma MD [address] [place] [address] [place] [address] Assigned Sleep Provider 04/02/2005/07 [place] [address] [place] [address] [place] [address] Assigned Musculoskeletal Provider 04/02/20 08/24/20 Marcelo Artis PA-C [address] [place] [address] [place] [address] Assigned Musculoskeletal Provider 08/25/20 08/20/21 Rodrigo Man PA-C [address] [place] [address] [place] [address] Assigned Surgical Provider 08/25/20 11/27/20 Noreen Flores APRN CONSTRUCTION EXECUTIVE [address] [facility] [place] [address] Assigned PCP 08/05/22 03/16/23 Agatha Null, DPM, Podiatry/Foot and Ankle Surgery [address] [facility] [address] [place] [address] Assigned Musculoskeletal Provider 11/04/22 [facility] [address] [place] [address] Assigned PCP 07/05/23 documented as of this encounter
--- OUTSIDE RECORDS SUMMARY | 2023-10-18 09:51 | XMS_ITS | Encounter Summary ---
Author Name Unknown Organization [place] Address [address] [place] [address] Care Team Providers Care Parquet Floor Layer'S Helper Name Role Phone Selma Good APRN CENTRAL OFFICE EQUIPMENT INSTALLER Primary Care Pro vider Vanda Guerrero MD Primary Care Provider [phone] Vanda Guerrero MD Unavailable [phone] Jeana-JdNoreen casrto APRN, CNP Unavailable Jeana-JdNoreen castro APRN, CNP Unavailable Jeana-JdNoreen castro APRN CENTRAL OFFICE EQUIPMENT INSTALLER Primary Car e Provider Kalyan Galvan Unavailable Unavailable Lashae Trevino [facility] Unavailable [phone] Eduardo Sharma MD Unavailable Rios Monteiro MD Unavailable [phone] Marcelo Artis-Aleyda Unavailable [phone] Rodrigo Man-C Unavailable [phone] Jeana-JdNoreen castro APRN CENTRAL OFFICE EQUIPMENT INSTALLER Unavailable Sudha Greene NP Primary Care Provider Agatha NullM, Podiatry /Foot and Ankle Surgery Unavailable [facility] Unavailable Reason for Visit * Reason Onset Date Comments Medication Problem 06/22/2014 amitriptline side effects Encounter Details Date Type Department Care Team (Late st Contact Info) Description 06/22/2014 [facility] Medical [facility] [address] [place] [address] [place] [address] Selma Good, BAND BIAS MACHINE OPERATOR CENTRAL OFFICE EQUIPMENT INSTALLER [address] [facility] [place] [address] Medication Problem (amitriptline side effe... Social History [...] documented as of this encounter Care Teams Parquet Floor Layer'S Helper Relationship Specialty Start Date End Date Selma Good, SEAN CENTRAL OFFICE EQUIPMENT INSTALLER [address] [place] [address] [place] [address] PCP - General 04/09/08 04/07/15 Vanda Guerrero MD [address] [place] [address] [place] [address] PCP - General Internal Medicine 04/08/15 01/08/19 Vanda Guerrero MD [address] [place] [address] [place] [address] PCP - Assigned PCP 07/24/16 06/15/18 Noreen Flores APRN CENTRAL OFFICE EQUIPMENT INSTALLER [address] [facility] [place] [address] PCP - Assigned PCP 06/16/18 08/13/18 Noreen Flores APRN CENTRAL OFFICE EQUIPMENT INSTALLER [address] [facility] [place] [address] PCP - General Nurse Practitioner 01/09/19 12/12/21 Sudha Greene, [place] [address] [address] PCP - General 11/01/22 Noreen Flores APRN CENTRAL OFFICE EQUIPMENT INSTALLER [address] [place] [address] [place] [address] Assigned PCP 06/16/18 05/26/22 Kalyan Galvan Personal Advocate & Liaison (PAL) 08/08/19 04/26/21 Lashae Trevino, [facility] [address] [facility] [place] [address] Pharmacist Pharmacist 10/14/19 12/01/20 Eduardo Sharma MD [address] [facility] 103 [place] [address] Assigned Sleep Provider 04/02/2005/07 [place] [address] [facility] 300 [place] [address] Assigned Musculoskeletal Provider 04/02/20 08/24/20 Marcelo Artis PA-C [address] [facility] 300 [place] [address] Assigned Musculoskeletal Provider 08/25/20 08/20/21 Rodrigo Man PA-C [address] [facility] [address] [place] [address] Assigned Surgical Provider 08/25/20 11/27/20 Noreen Flores APRN CENTRAL OFFICE EQUIPMENT INSTALLER [address] [facility] [place] [id number] Assigned PCP 08/05/22 03/16/23 Agatha Null DPM, Podiatry/Foot and Ankle Surgery [address] [facility] 300 [place] [address] Assigned Musculoskeletal Provider 11/04/22 [facility] [address] [facility] [place] [id number] Assigned PCP 07/05/23 documented as of this encounter
--- OUTSIDE RECORDS SUMMARY | 2023-10-18 09:51 | XMS_ITS | Encounter Summary ---
Author Name Unknown Organization [place] Address [address] [place] [address] Care Team Providers Care Ecd Name Role Phone Selma Good APRN NEGOTIATOR SALES Primary Care Pro vider Vanda Guerrero MD Primary Care Provider [phone] Vanda Guerrero MD Unavailable [phone] Jeana-JdNoreen castro APRN, CNP Unavailable Jeana-JdNoreen castro APRN, CNP Unavailable Jeana-JdNoreen castro APRN NEGOTIATOR SALES Primary Car e Provider Kalyan Galvan Unavailable Unavailable Lashae Trevino [facility] Unavailable [phone] Eduardo Sharma MD Unavailable Rios Monteiro MD Unavailable [phone] Marcelo Artis-Aleyda Unavailable [phone] Rodrigo Man-C Unavailable [phone] Jeana-JdNoreen castro APRN NEGOTIATOR SALES Unavailable Sudha Greene NP Primary Care Provider Agatha NullM, Podiatry /Foot and Ankle Surgery Unavailable [facility] Unavailable Reason for Visit * Reason Onset Date Comments Medication Question 10/06/2014 lisinopril Refill Request 10/06/2014 OT lancets and s trips Encounter Details Date Type Department Care Team (Late st Contact Info) Description 10/06/2014 MyC Medical Advice [facility] [address] [facility] [place] [phone] Selma Good, GOVERNMENT PROGRAM MANAGER [address] [place] [address] Medication Question (lisinopril); Refill R... Social History [...] PM CDT Appointment today with Kenyon GUEVARA, HOME PARAPROFESSIONAL: 5. Hypertension goal BP (blood pressure) < [...] documented as of this encounter Care Teams Ecd Relationship Specialty Start Date End Date Selma Good APRN NEGOTIATOR SALES [facility]5 [facility] [place] [address] PCP - General 04/09/08 04/07/15 Vanda Guerrero MD [address] [place] [address] [place] [address] PCP - General Internal Medicine 04/08/15 01/08/19 Vanda Guerrero MD [address] [place] [address] [place] [address] PCP - Assigned PCP 07/24/16 06/15/18 Noreen Flores APRN NEGOTIATOR SALES [address] [place] [address] [place] [address] PCP - Assigned PCP 06/16/18 08/13/18 Noreen Flores APRN NEGOTIATOR SALES [address] [place] [address] [place] [address] PCP - General Nurse Practitioner 01/09/19 12/12/21 Sudha Greene NP [address] [address] PCP - General 11/01/22 Noreen Flores APRN NEGOTIATOR SALES [address] [facility] [place] [address] Assigned PCP 06/16/18 05/26/22 Kalyan Galvan Personal Advocate & Liaison (PAL) 08/08/19 04/26/21 [facility] [address] [place] [address] [place] [address] Pharmacist Pharmacist 10/14/19 12/01/20 Eduardo Sharma MD [address] [place] [address] [place] [address] Assigned Sleep Provider 04/02/2005/07 [place] [address] [place] [address] [place] [address] Assigned Musculoskeletal Provider 04/02/20 08/24/20 Marcelo Artis PA-C [address] [place] [address] [place] [address] Assigned Musculoskeletal Provider 08/25/20 08/20/21 Rodrigo Man PA-C [address] [place] [address] [place] [address] Assigned Surgical Provider 08/25/20 11/27/20 Noreen Flores APRN NEGOTIATOR SALES [facility]5 [facility] [place] [address] Assigned PCP 08/05/22 03/16/23 Agatha Null DPM, Podiatry/Foot and Ankle Surgery [address] [place] [address] Assigned Musculoskeletal Provider 11/04/22 [facility] [address] [place] [address] Assigned PCP 07/05/23 documented as of this encounter
--- OUTSIDE RECORDS SUMMARY | 2023-10-18 09:51 | XMS_ITS | Encounter Summary ---
Author Name Unknown Organization [place] Address [address] [place] [address] Care Team Providers Care Outpatient Case Manager Name Role Phone Vanda Guerrero MD Primary Care Provider [phone] Vanda Guerrero MD Unavailable [phone] Jeana-Noreen Miles APRN EARLY CHILDHOOD AIDE CLASSROOM Unavailable [facility] Miles APRN EARLY CHILDHOOD AIDE CLASSROOM Unavailable [facility]-JdNoreen castro APRN EARLY CHILDHOOD AIDE CLASSROOM Primary Car e Provider Kalyan Galvan Unavailable Unavailable Lashae Trevino [facility] Unavailable Eduardo Sharma MD Unavailable Rios Monteiro MD Unavailable [phone] Marcelo Artis PA-C Unavailable Rodrigo ManC Unavailable Jeana-JdNoreen castro APRN EARLY CHILDHOOD AIDE CLASSROOM Unavailable Sudha Greene NP Primary Care Provider Agatha Null DPM, Podiatry /Foot and Ankle Surgery Unavailable [facility] Unavailable Reason for Visit * Reason Onset Date Comments Derm Problem 01/20/2016 Encounter Details Date Type Department Care Team (Late st Contact Info) Description 01/20/2016 [facility] [address] [place] [address] [place] [phone] Vanda Guerrero MD [address] [place] [address] [place] [address] Derm Problem Social History Tobacco Use Types [...] documented as of this encounter Care Teams Outpatient Case Manager Relationship Specialty Start Date End Date Vanda Guerrero MD [address] [place] [address] [place] [address] PCP - General Internal Medicine 04/08/15 01/08/19 Vanda Guerrero MD [address] [place] [address] [place] [address] PCP - Assigned PCP 07/24/16 06/15/18 Noreen Flores APRN EARLY CHILDHOOD AIDE CLASSROOM [address] [place] [address] [place] [address] PCP - Assigned PCP 06/16/18 08/13/18 Noreen Flores APRN EARLY CHILDHOOD AIDE CLASSROOM [facility] [place] [address] PCP - General Nurse Practitioner 01/09/19 12/12/21 Sudha Greene NP [address] [address] PCP - General 11/01/22 Noreen Flores APRN EARLY CHILDHOOD AIDE CLASSROOM [address] [facility] [place] [address] Assigned PCP 06/16/18 05/26/22 Kalyan Galvan Personal Advocate & Liaison (PAL) 08/08/19 04/26/21 Lashae Trevino, [facility] [address] [place] [address] [place] [address] Pharmacist Pharmacist 10/14/19 12/01/20 Eduardo Sharma MD [address] [place] [place] [address] Assigned Sleep Provider 04/02/2005/07 [place] [address] [facility] 300 [place] [address] Assigned Musculoskeletal Provider 04/02/20 08/24/20 Marcelo Artis PA-C [address] [facility] [place] [address] [place] [address] Assigned Musculoskeletal Provider 08/25/20 08/20/21 Rodrigo Man PA-C [address] [place] [place] [address] Assigned Surgical Provider 08/25/20 11/27/20 Noreen Flores APRN EARLY CHILDHOOD AIDE CLASSROOM [address] [facility] [place] [address] Assigned PCP 08/05/22 03/16/23 Agatha Null DPM, Podiatry/Foot and Ankle Surgery [address] [place] [address] Assigned Musculoskeletal Provider 11/04/22 [facility] 3[address] [facility] [place] [address] Assigned PCP 07/05/23 documented as of this encounter
--- OUTSIDE RECORDS SUMMARY | 2023-10-18 09:51 | XMS_ITS | Encounter Summary ---
Author Name Unknown Organization [place] Address [address] [place] [address] Care Team Providers Care Research Biostatistician Name Role Phone Vanda Guerrero MD Primary Care Provider [phone] Vanda Guerrero MD Unavailable [phone] Jeana-Noreen Miles APRN APPRAISAL COORDINATOR Unavailable [facility]en Miles APRN APPRAISAL COORDINATOR Unavailable [facility]-JdNoreen castro APRN APPRAISAL COORDINATOR Primary Car e Provider Kalyan Galvan Unavailable Unavailable Lashae Trevino [facility] Unavailable [phone] Eduardo Sharma MD Unavailable Rios Monteiro MD Unavailable [phone] Marcelo Artis PA-C Unavailable Rodrigo ManC Unavailable [phone] Jeana-JdNoreen castro APRN APPRAISAL COORDINATOR Unavailable Sudha Greene NP Primary Care Provider Agatha Null DPM, Podiatry /Foot and Ankle Surgery Unavailable [facility] Unavailable Reason for Visit * Reason Onset Date Comments Clarification 05/19/2016 Encounter Details Date Type Department Care Team (Late st Contact Info) Description 05/19/2016 MyC Medical Advice [facility] [address] [place] [address] Agatha Null, DPM, Podiatry/Foot and Ankle Surgery [address] [place] [address] Clarification Social History Tobacco Use Types Packs/Day [...] Total Score: 11 05/02/ 016 7:09 AM DEHAIRING MACHINE TENDER documented as of this encounter Care Teams Research Biostatistician Relationship Specialty Start Date End Date Vanda Guerrero MD [address] [place] [address] [place] [address] PCP - General Internal Medicine 04/08/15 01/08/19 Vanda Guerrero MD [address] [place] [address] [place] [address] PCP - Assigned PCP 07/24/16 06/15/18 Noreen Flores APRN CNP [address] [place] [address] [place] [address] PCP - Assigned PCP 06/16/18 08/13/18 Noreen Flores APRN APPRAISAL COORDINATOR [address] [facility] [place] [address] PCP - General Nurse Practitioner 01/09/19 12/12/21 Sudha Greene NP [address] [address] PCP - General 11/01/22 Noreen Flores APRN APPRAISAL COORDINATOR [address] [place] [address] [place] [address] Assigned PCP 06/16/18 05/26/22 Kalyan Galvan Personal Advocate & Liaison (PAL) 08/08/19 04/26/21 [facility] [address] [place] [address] [place] [address] Pharmacist Pharmacist 10/14/19 12/01/20 Eduardo Sharma MD [address] [place] [address] Assigned Sleep Provider 04/02/2005/07 [place] [address] [facility] [address] [place] [address] Assigned Musculoskeletal Provider 04/02/20 08/24/20 Marcelo Artis PA-C [address] [facility] [address] [place] [address] Assigned Musculoskeletal Provider 08/25/20 08/20/21 Rodrigo Man PA-C [address] [place] [address] [place] [address] Assigned Surgical Provider 08/25/20 11/27/20 Noreen Flores APRN APPRAISAL COORDINATOR [address] [facility] [place] [address] Assigned PCP 08/05/22 03/16/23 Agatha Null DPM, Podiatry/Foot and Ankle Surgery [address] [place] [address] [place] [address] Assigned Musculoskeletal Provider 11/04/22 [facility] [address] [facility] [address] [place] [address] Assigned PCP 07/05/23 documented as of this encounter
--- OUTSIDE RECORDS SUMMARY | 2023-10-18 09:51 | XMS_ITS | Encounter Summary ---
Author Name Unknown Organization [place] Address [address] [place] [address] Care Team Providers Care Glove Turner And Former Name Role Phone Vanda Guerrero MD Primary Care Provider [phone] Vanda Guerrero MD Unavailable [phone] Jeana-Noreen Miles APRN QUALITY ASSURANCE COORDINATOR Unavailable JeanaNoreen Garcia APRN QUALITY ASSURANCE COORDINATOR Unavailable Jeana-JdNoreen castro APRN QUALITY ASSURANCE COORDINATOR Primary Car e Provider Kalyan Galvan Unavailable Unavailable Lashae Trevino [facility] Unavailable [phone] Eduardo Sharma MD Unavailable Rios Monteiro MD Unavailable Marcelo Artis PA-C Unavailable Rodrigo ManC Unavailable Jeana-JdNoreen castro APRN QUALITY ASSURANCE COORDINATOR Unavailable Sudha Greene NP Primary Care Provider Agatha Null DPM, Podiatry /Foot and Ankle Surgery Unavailable [facility] Unavailable Encounter Details Date Type Department Care Team (Late st Contact Info) Description 03/21/2017 [facility] [address] [place] [address] Dusty Oneil [facility] Social History Tobacco Use Types [...] documented as of this encounter Care Teams Glove Turner And Former Relationship Specialty Start Date End Date Vanda Guerrero MD [address] [place] [address] [place] [address] PCP - General Internal Medicine 04/08/15 01/08/19 Vanda Guerrero MD [address] [place] [address] [place] [address] PCP - Assigned PCP 07/24/16 06/15/18 Noreen Flores APRN QUALITY ASSURANCE COORDINATOR [address] [place] [address] [place] [address] PCP - Assigned PCP 06/16/18 08/13/18 Noreen Flores APRN QUALITY ASSURANCE COORDINATOR [address] [place] [address] [place] [address] PCP - General Nurse Practitioner 01/09/19 12/12/21 Sudha Greene NP [address] [address] PCP - General 11/01/22 Noreen Flores APRN QUALITY ASSURANCE COORDINATOR [address] [facility] [place] [address] Assigned PCP 06/16/18 05/26/22 Kalyan Galvan Personal Advocate & Liaison (PAL) 08/08/19 04/26/21 Lashae Trevino [facility] [address] [facility] [place] [address] Pharmacist Pharmacist 10/14/19 12/01/20 Eduardo Sharma MD [address] [place] [address] Assigned Sleep Provider 04/02/2005/07 [place] [address] [facility] 300 [place] [address] Assigned Musculoskeletal Provider 04/02/20 08/24/20 Marcelo Artis PA-C [address] [facility] [address] [place] [address] Assigned Musculoskeletal Provider 08/25/20 08/20/21 Rodrigo Man PA-C [address] [place] [address] Assigned Surgical Provider 08/25/20 11/27/20 Noreen Flores APRN QUALITY ASSURANCE COORDINATOR 3305 [facility] [place] [address] Assigned PCP 08/05/22 03/16/23 Agatha Null DPM, Podiatry/Foot and Ankle Surgery [address] [place] [address] Assigned Musculoskeletal Provider 11/04/22 Clinic [facility] 3305 [facility] [place] [address] Assigned PCP 07/05/23 documented as of this encounter
--- OUTSIDE RECORDS SUMMARY | 2023-10-18 09:51 | XMS_ITS | Encounter Summary ---
Author Name Unknown Organization [facility] Address [address] [place] [address] Care Team Providers Care Visiting Housekeeper Name Role Phone Selma Good APRN RAILROAD WHEELS AND AXLES INSPECTOR Primary Care Pro vider Vanda Guerrero MD Primary Care Provider [phone] Vanda Guerrero MD Unavailable [phone] Jeana-JdNoreen castro APRN, CNP Unavailable Jeana-JdNoreen castro APRN, CNP Unavailable Jeana-JdNoreen castro APRN RAILROAD WHEELS AND AXLES INSPECTOR Primary Car e Provider Kalyan Galvan Unavailable Unavailable Lashae Trevino [facility] Unavailable [phone] Eduardo Sharma MD Unavailable Rios Monteiro MD Unavailable [phone] Marcelo Artis-Aleyda Unavailable [phone] Rodrigo Man-C Unavailable [phone] Jeana-JdNoreen castro APRN RAILROAD WHEELS AND AXLES INSPECTOR Unavailable Sudha Greene NP Primary Care Provider [phone] Agatha NullM, Podiatry /Foot and Ankle Surgery Unavailable [facility] Unavailable Reason for Visit * Reason Onset Date Comments Foot Problems 03/19/2014 numb Encounter Details Date Type Department Care Team (Late st Contact Info) Description 03/19/2014 [facility] [address] [place] [address] [place] [address] Selma Good APRN RAILROAD WHEELS AND AXLES INSPECTOR [address] [facility] [place] [address] Foot Problems (numb) Social History Tobacco Use [...] documented as of this encounter Care Teams Visiting Housekeeper Relationship Specialty Start Date End Date Selma Good APRN RAILROAD WHEELS AND AXLES INSPECTOR [address] [place] [address] [place] [address] PCP - General 04/09/08 04/07/15 Vanda Guerrero MD [address] [place] [address] [place] [address] PCP - General Internal Medicine 04/08/15 01/08/19 Vanda Guerrero MD [address] [place] [address] [place] [address] PCP - Assigned PCP 07/24/16 06/15/18 Noreen Flores APRN RAILROAD WHEELS AND AXLES INSPECTOR [address] [place] [address] [place] [address] PCP - Assigned PCP 06/16/18 08/13/18 Noreen Flores APRN RAILROAD WHEELS AND AXLES INSPECTOR [address] [place] [address] [place] [address] PCP - General Nurse Practitioner 01/09/19 12/12/21 Sudha Greene NP [address] [address] PCP - General 11/01/22 Noreen Flores APRN RAILROAD WHEELS AND AXLES INSPECTOR [address] [place] [address] [place] [address] Assigned PCP 06/16/18 05/26/22 Kalyan Galvan Personal Advocate & Liaison (PAL) 08/08/19 04/26/21 [facility] [address] [place] [address] [place] [address] Pharmacist Pharmacist 10/14/19 12/01/20 Eduardo Sharma MD [address] [place] [address] Assigned Sleep Provider 04/02/2005/07 Rios Monteiro MD [address] [place] [address] [address] [place], [place] 513177 Assigned Musculoskeletal Provider 04/02/20 08/24/20 Marcelo Artis, PA-C [id number] [place] [address] [address] [place] [address] Assigned Musculoskeletal Provider 08/25/20 08/20/21 Rodrigo Man PA-C [address] [facility] [address] [place] [place] [address] Assigned Surgical Provider 08/25/20 11/27/20 Noreen Flores APRN RAILROAD WHEELS AND AXLES INSPECTOR [address] [facility] [place] [address] Assigned PCP 08/05/22 03/16/23 Agatha Null DPM, Podiatry/Foot and Ankle Surgery [address] [place] [address] Assigned Musculoskeletal Provider 11/04/22 [facility] - [facility] [address] [facility] [place] [id number] Assigned PCP 07/05/23 documented as of this encounter
--- OUTSIDE RECORDS SUMMARY | 2023-10-18 09:51 | XMS_ITS | Encounter Summary ---
Author Name Unknown Organization [facility] Address [address] [place] [address] Care Team Providers Care Farmworker Fur Name Role Phone Vanda Guerrero MD Primary Care Provider [phone] Vanda Guerrero MD Unavailable [phone] Jeana-Noreen Miles APRN HAIR SPINNER Unavailable JeanaNoreen Garcia APRN HAIR SPINNER Unavailable Jeana-JdNoreen castro APRN HAIR SPINNER Primary Car e Provider Kalyan Galvan Unavailable Unavailable Lashae Trevino [facility] Unavailable Eduardo Sharma MD Unavailable Rios Monteiro MD Unavailable [phone] Marcelo Artis PA-C Unavailable [phone] Rodrigo ManC Unavailable Jeana-JdNoreen castro APRN HAIR SPINNER Unavailable Sudha Greene NP Primary Care Provider Agatha NullM, Podiatry /Foot and Ankle Surgery Unavailable [facility] [place] [place] [facility] Unavailable Encounter Details Date Type Department Care Team (Late st Contact Info) Description 12/05/2016 [facility] [address] [place] [address] Heath Sandy Rodríguezne, [facility] [address] [facility] [place] [address] Social History Tobacco Use Types Packs/Day Years [...] as of this encounter Care Teams Farmworker Fur Relationship Specialty Start Date End Date Vanda Guerrero MD [address] [place] [address] [place] [address] PCP - General Internal Medicine 04/08/15 01/08/19 Vanda Guerrero MD [address] [place] [address] [place] [address] PCP - Assigned PCP 07/24/16 06/15/18 Noreen Flores APRN HAIR SPINNER [address] [place] [address] [place] [address] PCP - Assigned PCP 06/16/18 08/13/18 Noreen Flores APRN HAIR SPINNER [address] [place] [address] [place] [address] PCP - General Nurse Practitioner 01/09/19 12/12/21 Sudha Greene NP [address] [address] PCP - General 11/01/22 Noreen Flores APRN HAIR SPINNER [address] [place] [address] [place] [address] Assigned PCP 06/16/18 05/26/22 Kalyan Galvan Personal Advocate & Liaison (PAL) 08/08/19 04/26/21 Lashae Trevino, [facility] [place] [id number] Pharmacist Pharmacist 10/14/19 12/01/20 Eduardo Sharma MD [address] [place] [address] [place] 824045 Assigned Sleep Provider 04/02/2005/07 [place] [address] [place] [place] [address] Assigned Musculoskeletal Provider 04/02/20 08/24/20 Marcelo Artis PA-C [address] [place] [address] [place] [address] Assigned Musculoskeletal Provider 08/25/20 08/20/21 Rodrigo Man PA-C [address] [place] [address] [place] [id number] Assigned Surgical Provider 08/25/20 11/27/20 Noreen Flores APRN HAIR SPINNER [address] [facility] [place] [address] Assigned PCP 08/05/22 03/16/23 Agatha Null DPM, Podiatry/Foot and Ankle Surgery [address] [place] [address] Assigned Musculoskeletal Provider 11/04/22 Clinic - [facility] 3[address] [facility] [place] [id number] Assigned PCP 07/05/23 documented as of this encounter
--- OUTSIDE RECORDS SUMMARY | 2023-10-18 09:51 | XMS_ITS | Encounter Summary ---
Author Name Unknown Organization [facility] Address [address] [place] [address] Care Team Providers Care Broadcast Traffic Coordinator Name Role Phone Vanda Guerrero MD Primary Care Provider [phone] Vanda Guerrero MD Unavailable [phone] Jeana-Noreen Miles APRN RANGE FEEDER Unavailable Jeana-Noreen Miles APRN RANGE FEEDER Unavailable Jeana-JdNorene castro APRN RANGE FEEDER Primary Car e Provider Kalyan Galvan Unavailable Unavailable Lashae Trevino [facility] Unavailable Eduardo Sharma MD Unavailable Rios Monteiro MD Unavailable Marcelo Artis PA-C Unavailable Rodrigo Man PA-C Unavailable Jeana-Noreen Miles APRN RANGE FEEDER Unavailable Sudha Greene NP Primary Care Provider [phone] Agatha Null DPM, Podiatry /Foot and Ankle Surgery Unavailable [facility] Unavailable Encounter Details Date Type Department Care Team (Late st Contact Info) Description 02/11/[address] [place] [phone] Vanda Guerrero MD [address] [place] [address] [place] [address] Social History Tobacco Use Types Packs/Day Years [...] documented as of this encounter Care Teams Broadcast Traffic Coordinator Relationship Specialty Start Date End Date Vanda Guerrero MD [address] [place] [address] [place] [address] PCP - General Internal Medicine 04/08/15 01/08/19 Vanda Guerrero MD [address] [place] [address] [place] [address] PCP - Assigned PCP 07/24/16 06/15/18 Noreen Flores APRN RANGE FEEDER [address] [place] [address] [place] [address] PCP - Assigned PCP 06/16/18 08/13/18 Noreen Flores APRN RANGE FEEDER [address] [place] [address] [place] [address] PCP - General Nurse Practitioner 01/09/19 12/12/21 Sudha Greene NP [facility] [address] [place] [address] PCP - General 11/01/22 Noreen Flores APRN RANGE FEEDER [address] [place] [address] [place] [address] Assigned PCP 06/16/18 05/26/22 Kalyan Galvan Personal Advocate & Liaison (PAL) 08/08/19 04/26/21 Lashae Trevino, [facility] [address] [place] [address] [place] [address] Pharmacist Pharmacist 10/14/19 12/01/20 Eduardo Sharma MD [address] [place] [address] Assigned Sleep Provider 04/02/2005/07 [place] [address] [facility] [address] [place] [address] Assigned Musculoskeletal Provider 04/02/20 08/24/20 Marcelo Artis PA-C [address] [place] [address] Assigned Musculoskeletal Provider 08/25/20 08/20/21 Rodrigo Man PA-C [address] [place] [address] [place] [address] Assigned Surgical Provider 08/25/20 11/27/20 Noreen Flores APRN RANGE FEEDER [address] [facility] [place] [address] Assigned PCP 08/05/22 03/16/23 Agatha Null DPM, Podiatry/Foot and Ankle Surgery [address] [place] [address] Assigned Musculoskeletal Provider 11/04/22 Clinic - [facility] [address] [facility] [place] [id number] Assigned PCP 07/05/23 documented as of this encounter
--- OUTSIDE RECORDS SUMMARY | 2023-10-18 09:51 | XMS_ITS | Encounter Summary ---
Author Name Unknown Organization [facility] Address [address] [place] [address] Care Team Providers Care Ceramic Maker Demonstrator Name Role Phone Vanda Guerrero MD Primary Care Provider [phone] Vanda Guerrero MD Unavailable [phone] Jeana-Noreen Miles APRN CAR WASH ATTENDANT AUTOMATIC Unavailable [facility] APRN CAR WASH ATTENDANT AUTOMATIC Unavailable [facility]-JdNoreen castro APRN CAR WASH ATTENDANT AUTOMATIC Primary Car e Provider Kalyan Galvan Unavailable Unavailable Lashae Trevino [facility] Unavailable Eduardo Sharma MD Unavailable Rios Monteiro MD Unavailable Marcelo Artis PA-C Unavailable Rodrigo Man PA-C Unavailable Jeana-JdNoreen castro APRN CAR WASH ATTENDANT AUTOMATIC Unavailable Sudha Greene NP Primary Care Provider Agatha Null DPM, Podiatry /Foot and Ankle Surgery Unavailable [facility] Unavailable Reason for Visit * Reason Comments Medication Refill simvastatin (ZOCOR) 20 MG tablet Encounter Details Date Type Department Care Team (Late st Contact Info) Description 02/15/2017 Refill [facility] [address] [place] [address] Vanda Guerrero MD [address] [facility] [place] [address] Medication Refill (simvastatin (ZOCOR) 20 MG tablet) [...] Last Office Visit with [facility], [facility] or [facility] prescribing provider: 09/25/2016 Lab Results Component [...] 178 <200 mg/dL 02/17/2017 2:14 PM CDT [facility] Triglycerides 121 <150 mg/dL 02/17/2017 2:14 PM CDT [facility] Comment:Fasting specimen HDL Cholesterol 43(L) >49 mg/dL 7 2:14 PM CDT [facility] LDL Cholesterol Calculated 111(H) <100 mg/dL 02/17/2017 2:14 PM CDT [facility] Comment: Above desirable: ??100-129 mg/dl Borderline High: ??130-159 mg/dL High: ? 160-189 mg/dL Very high: ? >189 mg/dl Non HDL Cholesterol 135(H) <130 mg/dL 02/17/2017 2:14 PM CDT [facility] Comment: Above Desirable: ??130-159 mg/dl Borderline high: ??160-189 mg/dl High: ? 190-219 mg/dl Very high: ? >219 mg/dl Blood specimen (specimen) 02/17/2017 9:13 AM CDT 02/17/2017 9:18 AM CDT Vanda Guerrero MD LAB - BLOOD ORDER ILDEFONSO [facility] [address] [place] [address] documented in this encounter Visit Diagnoses Diagnosis [...] as of this encounter Care Teams Ceramic Maker Demonstrator Relationship Specialty Start Date End Date Vanda Guerrero MD [address] [place] [address] [place] [address] PCP - General Internal Medicine 04/08/15 01/08/19 Vanda Guerrero MD [address] [place] [address] [place] [address] PCP - Assigned PCP 07/24/16 06/15/18 Noreen Flores APRN CAR WASH ATTENDANT AUTOMATIC [address] [place] [address] [place] [address] PCP - Assigned PCP 06/16/18 08/13/18 Noreen Flores APRN CAR WASH ATTENDANT AUTOMATIC [address] [place] [address] [place] [address] PCP - General Nurse Practitioner 01/09/19 12/12/21 Sudha Greene NP [address] [address] PCP - General 11/01/22 Noreen Flores APRN CAR WASH ATTENDANT AUTOMATIC [address] [place] [address] [place] [address] Assigned PCP 06/16/18 05/26/22 Kalyan Galvan Personal Advocate & Liaison (PAL) 08/08/19 04/26/21 [facility] [place] [address] Pharmacist Pharmacist 10/14/19 12/01/20 Eduardo Sharma MD [address] [facility] [address] [place] 97[address]75 Assigned Sleep Provider 04/02/2005/07 Rios Monteiro MD [address] [place] [address] [address] [place] [id number] Assigned Musculoskeletal Provider 04/02/20 08/24/20 Marcelo Artis PA-C [address] [place] [address] [address] [place] [address] Assigned Musculoskeletal Provider 08/25/20 08/20/21 Rodrigo Man PA-C [address] [facility] [address] [place] 219705 Assigned Surgical Provider 08/25/20 11/27/20 Noreen Flores APRN CAR WASH ATTENDANT AUTOMATIC [address] [place] [address] [place] [address] Assigned PCP 08/05/22 03/16/23 Agatha Null DPM, Podiatry/Foot and Ankle Surgery [address] [place] [address] [address] [place] [address] Assigned Musculoskeletal Provider 11/04/22 [facility] - [place] 050345 [facility] [place] [address] Assigned PCP 07/05/23 documented as of this encounter
--- OUTSIDE RECORDS SUMMARY | 2023-10-18 09:51 | XMS_ITS | Encounter Summary ---
Author Name Unknown Organization [facility] Address [address] [place] [address] Care Team Providers Care Supervisor Hide House Name Role Phone Vanda Guerrero MD Primary Care Provider [phone] Vanda Guerrero MD Unavailable [phone] Jeana-Noreen Miles APRN SOCIAL SCIENCE PROFESSOR Unavailable [facility] APRN SOCIAL SCIENCE PROFESSOR Unavailable [facility]-JdNoreen castro APRN SOCIAL SCIENCE PROFESSOR Primary Car e Provider Kalyan Galvan Unavailable Unavailable Lashae Trevino [facility] Unavailable Eduardo Sharma MD Unavailable Rios Monteiro MD Unavailable [phone] Marcelo Artis PA-C Unavailable [phone] Rodrigo Man PA-C Unavailable [phone] Jeana-JdNoreen castro APRN SOCIAL SCIENCE PROFESSOR Unavailable Sudha Greene NP Primary Care Provider [phone] Agatha Null DPM, Podiatry /Foot and Ankle Surgery Unavailable [facility] Unavailable Reason for Visit * Reason Onset Date Comments Appointment 11/30/2016 reminder Encounter Details Date Type Department Care Team (Late st Contact Info) Description 11/30/2016 MyC Medical Advice [facility] [address] [place] [phone] Kallie Celaya, RN Appointment (reminder) Social History [...] as of this encounter Care Teams Supervisor Hide House Relationship Specialty Start Date End Date Vanda Guerrero MD [address] [place] [address] [place] [address] PCP - General Internal Medicine 04/08/15 01/08/19 Vanda Guerrero MD [address] [place] [address] [place] [address] PCP - Assigned PCP 07/24/16 06/15/18 Noreen Flores APRN SOCIAL SCIENCE PROFESSOR [address] [place] [address] [place] [address] PCP - Assigned PCP 06/16/18 08/13/18 Noreen Flores APRN SOCIAL SCIENCE PROFESSOR [address] [place] [address] [place] [address] PCP - General Nurse Practitioner 01/09/19 12/12/21 Sudha Greene, MAURICIO [address] [address] PCP - General 11/01/22 Noreen Flores APRN SOCIAL SCIENCE PROFESSOR [address] [facility] [place] [address] Assigned PCP 06/16/18 05/26/22 Kalyan Galvan Personal Advocate & Liaison (PAL) 08/08/19 04/26/21 Lashae Trevino, [facility] [place] [address] Pharmacist Pharmacist 10/14/19 12/01/20 Eduardo Sharma MD [address] [place] [address] [place] [id number] Assigned Sleep Provider 04/02/2005/07 [place] [address] [place] [address] [place] [address] Assigned Musculoskeletal Provider 04/02/20 08/24/20 Marcelo Artis PA-C [address] [place] [address] Assigned Musculoskeletal Provider 08/25/20 08/20/21 Rodrigo Man PA-C [address] [place] [address] Assigned Surgical Provider 08/25/20 11/27/20 Noreen Flores APRN SOCIAL SCIENCE PROFESSOR [address] [facility] [place] [address] Assigned PCP 08/05/22 03/16/23 Agatha Null DPM, Podiatry/Foot and Ankle Surgery [address] [place] [address] Assigned Musculoskeletal Provider 11/04/22 Clinic - [facility] 3[address] [facility] [place] [id number] Assigned PCP 07/05/23 documented as of this encounter
--- OUTSIDE RECORDS SUMMARY | 2023-10-18 09:51 | XMS_ITS | Encounter Summary ---
Author Name Unknown Organization [facility] Address [address] [place] [address] Care Team Providers Care Egg Packer Name Role Phone Vanda Guerrero MD Primary Care Provider [phone] Vanda Guerrero MD Unavailable [phone] Jeana-Noreen Miles APRN SURGICAL DEVICE SALES REPRESENTATIVE Unavailable [facility] APRN SURGICAL DEVICE SALES REPRESENTATIVE Unavailable [facility]-JdNoreen castro APRN SURGICAL DEVICE SALES REPRESENTATIVE Primary Car e Provider Kalyan Galvan Unavailable Unavailable Lashae Trevino [facility] Unavailable Eduardo Sharma MD Unavailable Rios Monteiro MD Unavailable [phone] Marcelo Artis PA-C Unavailable [phone] Rodrigo ManC Unavailable Jeana-Noreen Miles APRN SURGICAL DEVICE SALES REPRESENTATIVE Unavailable Sudha Greene NP Primary Care Provider Agatha Null DPM, Podiatry /Foot and Ankle Surgery Unavailable [facility] Unavailable Reason for Visit * Reason Onset Date Comments Refill Request 08/30/2016 Metformin 500mg tab Encounter Details Date Type Department Care Team (Late st Contact Info) Description 08/30/2016 Refill [facility] [address] [place] [address] Vanda Guerrero MD [address] [facility] [place] [address] Refill Request (Metformin 500mg tab) Social History [...] Last Office Visit with G, P or [facility] prescribing provider: 06/01/16 BP Readings from Last [...] Total Score: 11 05/02/ 016 7:09 AM TRUCK CRANE OPERATOR HELPER documented as of this encounter Care Teams Egg Packer Relationship Specialty Start Date End Date Vanda Guerrero MD [address] [place] [address] [place] [address] PCP - General Internal Medicine 04/08/15 01/08/19 Vanda Guerrero MD [address] [place] [address] [place] [address] PCP - Assigned PCP 07/24/16 06/15/18 Noreen Flores, SEAN SURGICAL DEVICE SALES REPRESENTATIVE [address] [place] [address] [place] [address] PCP - Assigned PCP 06/16/18 08/13/18 Noreen Flores APRN SURGICAL DEVICE SALES REPRESENTATIVE [address] [place] [address] [place] [address] PCP - General Nurse Practitioner 01/09/19 12/12/21 Sudha Greene, MAURICIO [address] [address] PCP - General 11/01/22 Noreen Flores APRN SURGICAL DEVICE SALES REPRESENTATIVE [address] [place] [address] [place] [address] Assigned PCP 06/16/18 05/26/22 Kalyan Galvan Personal Advocate & Liaison (PAL) 08/08/19 04/26/21 Lashae Trevino [facility] [address] [id number] Pharmacist Pharmacist 10/14/19 12/01/20 Eduardo Sharma MD [address] [place] [address] Assigned Sleep Provider 04/02/2005/07 [place] [address] 906557 Assigned Musculoskeletal Provider 04/02/20 08/24/20 Marcelo Artis PA-C [address] [address] Assigned Musculoskeletal Provider 08/25/20 08/20/21 Rodrigo Man PA-C [address] [address] Assigned Surgical Provider 08/25/20 11/27/20 Noreen Flores APRN SURGICAL DEVICE SALES REPRESENTATIVE [address] [place] [address] [place] [address] Assigned PCP 08/05/22 03/16/23 Agatha Null DPM, Podiatry/Foot and Ankle Surgery [id number] [place] [address] [facility] [address] [place] [address] Assigned Musculoskeletal Provider 11/04/22 Clinic - [facility] [place] [address] [place] [address] [place] [address] Assigned PCP 07/05/23 documented as of this encounter
--- OUTSIDE RECORDS SUMMARY | 2023-10-18 09:51 | XMS_ITS | Encounter Summary ---
Author Name Unknown Organization [facility] Address [address] [place] [address] Care Team Providers Care Compressor Station Engineer Chief Name Role Phone Selma Good APRN HADOOP ANALYST Primary Care Pro vider Vanda Guerrero MD Primary Care Provider [phone] Vanda Guerrero MD Unavailable [phone] Jeana-JdNoreen castro APRN, CNP Unavailable Jeana-JdNoreen castro APRN, CNP Unavailable Jeana-JdNoreen castor APRN HADOOP ANALYST Primary Car e Provider Kalyan Galvan Unavailable Unavailable Lashae Trevino [facility] Unavailable [phone] Eduardo Sharma MD Unavailable Rios Monteiro MD Unavailable [phone] Marcelo Artis-Aleyda Unavailable [phone] Rodrigo Man-C Unavailable [phone] Jeana-JdNoreen castro APRN HADOOP ANALYST Unavailable Sudha Greene NP Primary Care Provider Agatha NullM, Podiatry /Foot and Ankle Surgery Unavailable [facility] Unavailable Reason for Visit * Reason Onset Date Comments Medication Dosage Adjustment 08/18/2013 dec gavine Metformin Encounter Details Date Type Department Care Team (Late st Contact Info) Description 08/18/2013 [facility] [address] [place] [address] [place] [phone] Selma Good APRN HADOOP ANALYST [address] [facility] [place] [address] Medication Dosage Adjustment (decrease Met... Social History [...] RN - 08/18/2013 2:08 PM CDT See [employer] message below. I updated the medication list [...] documented as of this encounter Care Teams Compressor Station Engineer Chief Relationship Specialty Start Date End Date Selma Good APRN HADOOP ANALYST [facility] [place] [address] PCP - General 04/09/08 04/07/15 Vanda Guerrero MD [address] [place] [address] [place] [address] PCP - General Internal Medicine 04/08/15 01/08/19 Vanda Guerrero MD [address] [place] [address] [place] [address] PCP - Assigned PCP 07/24/16 06/15/18 Noreen Flores APRN HADOOP ANALYST [address] [place] [address] [place] [address] PCP - Assigned PCP 06/16/18 08/13/18 Noreen Flores APRN HADOOP ANALYST [address] [place] [address] [place] [address] PCP - General Nurse Practitioner 01/09/19 12/12/21 Sudha Greene, MAURICIO [address] [address] PCP - General 11/01/22 Noreen Flores, SEAN HADOOP ANALYST [address] [place] [address] [place] [address] Assigned PCP 06/16/18 05/26/22 Kalyan Galvan Personal Advocate & Liaison (PAL) 08/08/19 04/26/21 Lashae Trevino [facility] [address] [place] [address] Pharmacist Pharmacist 10/14/19 12/01/20 Eduardo Sharma MD [address] [place] [address] [place] [address] Assigned Sleep Provider 04/02/2005/07 Rios Monteiro MD [address] [place] [address] Assigned Musculoskeletal Provider 04/02/20 08/24/20 Marcelo Artis PA-C [address] [place] [address] Assigned Musculoskeletal Provider 08/25/20 08/20/21 Rodrigo Man PA-C [address] [facility] [facility] 450 [place] [address] Assigned Surgical Provider 08/25/20 11/27/20 Noreen Flores APRN HADOOP ANALYST [address] [place] [address] [place] [address] Assigned PCP 08/05/22 03/16/23 Agatha Null DPM, Podiatry/Foot and Ankle Surgery [address] [place] [address] 300 [place] [address] Assigned Musculoskeletal Provider 11/04/22 Clinic - [facility] [address] [place] [address] [place] [address] Assigned PCP 07/05/23 documented as of this encounter
--- OUTSIDE RECORDS SUMMARY | 2023-10-18 09:51 | XMS_ITS | Encounter Summary ---
Author Name Unknown Organization [facility] Address [address] [place] [address] Care Team Providers Care Case Resource Manager Name Role Phone Selma Good APRN CAN MACHINE OPERATOR Primary Care Pro vider Vanda Guerrero MD Primary Care Provider [phone] Vanda Guerrero MD Unavailable [phone] Jeana-JdNoreen castro APRN, CNP Unavailable Jeana-JdNoreen castro APRN, CNP Unavailable Jeana-JdNoreen castro APRN CAN MACHINE OPERATOR Primary Car e Provider Kalyan Galvan Unavailable Unavailable Lashae Trevino [facility] Unavailable [phone] Eduardo Sharma MD Unavailable Rios Monteiro MD Unavailable [phone] Marcelo Artis PA-C Unavailable [phone] Rodrigo Man PA-C Unavailable [phone] Jeana-JdNoreen castro APRN CAN MACHINE OPERATOR Unavailable Sudha Greene NP Primary Care Provider Agatha NullM, Podiatry /Foot and Ankle Surgery Unavailable [facility] Unavailable Encounter Details Date Type Department Care Team (Late st Contact Info) Description 08/17/2014 MyC Medical Advice [facility] [address] [place] [phone] Day Greene APRN CAN MACHINE OPERATOR [address] [place] [address] [address] [place] [address] Social History Tobacco Use Types Packs/Day Years [...] documented as of this encounter Care Teams Case Resource Manager Relationship Specialty Start Date End Date Selma Good APRN CAN MACHINE OPERATOR [address] [place] [address] [place] [address] PCP - General 04/09/08 04/07/15 Vanda Guerrero MD [address] [place] [address] [place] [address] PCP - General Internal Medicine 04/08/15 01/08/19 Vanda Guerrero MD [address] [place] [address] [place] [address] PCP - Assigned PCP 07/24/16 06/15/18 Noreen Flores APRN CAN MACHINE OPERATOR [address] [place] [address] [place] [address] PCP - Assigned PCP 06/16/18 08/13/18 Noreen Flores APRN CAN MACHINE OPERATOR [address] [place] [address] [place] [address] PCP - General Nurse Practitioner 01/09/19 12/12/21 Sudha Greene, MAURICIO [address] [address] PCP - General 11/01/22 Noreen Flores APRN CAN MACHINE OPERATOR [address] [place] [address] [place] [address] Assigned PCP 06/16/18 05/26/22 Kalyan Galvan Personal Advocate & Liaison (PAL) 08/08/19 04/26/21 Lashae Trevino [facility] [address] [place] [address] [place] [phone] Pharmacist Pharmacist 10/14/19 12/01/20 Eduardo Sharma MD [address] [place] [address] Assigned Sleep Provider 04/02/2005/07 [place] [address] [facility] 300 [place], [place] 8[address]197 Assigned Musculoskeletal Provider 04/02/20 08/24/20 Marcelo Artis, PA-C [address] [facility] 300 [place], [place] [address] Assigned Musculoskeletal Provider 08/25/20 08/20/21 Rodrigo Man PA-C [address] [place] [address] Assigned Surgical Provider 08/25/20 11/27/20 Noreen Flores APRN CAN MACHINE OPERATOR 3305 [facility] [place] [address] Assigned PCP 08/05/22 03/16/23 Agatha Null DPM, Podiatry/Foot and Ankle Surgery [address] [place] [address] [place] [address] Assigned Musculoskeletal Provider 11/04/22 Clinic - [facility] 3[address] [facility] [place] [address] Assigned PCP 07/05/23 documented as of this encounter
--- OUTSIDE RECORDS SUMMARY | 2023-10-18 09:51 | XMS_ITS | Encounter Summary ---
Author Name Unknown Organization [facility] Address [address] [place] [address] Care Team Providers Care Medical Collections Name Role Phone Vanda Guerrero MD Primary Care Provider [phone] Vanda Guerrero MD Unavailable [phone] Jeana-Noreen Miles APRN PIT FURNACE MELTER [facility] PIT FURNACE MELTER Unavailable [facility]-JdNoreen castro APRN PIT FURNACE MELTER Primary Car e Provider Kalyan Galvan Unavailable Unavailable Lashae Trevino [facility] Unavailable [phone] Eduardo Sharma MD Unavailable Rios Monteiro MD Unavailable Marcelo Artis PA-C Unavailable Rodrigo Man PA-C Unavailable Jeana-Noreen Miles APRN PIT FURNACE MELTER Unavailable Sudha Greene NP Primary Care Provider Agatha Null DPM, Podiatry /Foot and Ankle Surgery Unavailable [facility] [place] [facility] Unavailable Reason for Visit * Reason Onset Date Comments Patient/info Update 05/01/2016 foot prob Encounter Details Date Type Department Care Team (Late st Contact Info) Description 05/01/[address] [facility] [address] [place] [address] Agatha Null DPM, Podiatry/Foot and Ankle Surgery [address] [place] [address] Patient/info Update (foot prob) Social History Tobacco [...] as of this encounter Care Teams Medical Collections Relationship Specialty Start Date End Date Vanda Guerrero MD [address] [place] [address] [place] [address] PCP - General Internal Medicine 04/08/15 01/08/19 Vanda Guerrero MD [address] [place] [address] [place] [address] PCP - Assigned PCP 07/24/16 06/15/18 Noreen Flores APRN PIT FURNACE MELTER [address] [place] [address] [place] [address] PCP - Assigned PCP 06/16/18 08/13/18 Noreen Flores APRN PIT FURNACE MELTER [address] [place] [address] [place] [address] PCP - General Nurse Practitioner 01/09/19 12/12/21 Sudha Greene, MAURICIO [address] [address] PCP - General 11/01/22 Noreen Flores APRN PIT FURNACE MELTER [address] [place] [address] [place] [address] Assigned PCP 06/16/18 05/26/22 Kalyan Galvan Personal Advocate & Liaison (PAL) 08/08/19 04/26/21 [facility] [address] [place] [address] [place] [address] Pharmacist Pharmacist 10/14/19 12/01/20 Eduardo Sharma MD [address] [address] Assigned Sleep Provider 04/02/2005/07 Rios Monteiro MD [address] [place] [address] Assigned Musculoskeletal Provider 04/02/20 08/24/20 Marcelo Artis PA-C [address] [address] Assigned Musculoskeletal Provider 08/25/20 08/20/21 Rodrigo Man PA-C [address] [place] [address] Assigned Surgical Provider 08/25/20 11/27/20 Noreen Flores APRN PIT FURNACE MELTER [address] [facility] [place] [address] Assigned PCP 08/05/22 03/16/23 Agatha Null DPM, Podiatry/Foot and Ankle Surgery [address] [place] [address] [place] [address]29[address] Assigned Musculoskeletal Provider 11/04/22 Clinic - [facility] [address] [facility] [place] [phone] Assigned PCP 07/05/23 documented as of this encounter
--- OUTSIDE RECORDS SUMMARY | 2023-10-18 09:51 | XMS_ITS | Encounter Summary ---
Author Name Unknown Organization [place] Address [address] [place] [address] Care Team Providers Care Granite Fabricator Name Role Phone Vanda Guerrero MD Primary Care Provider [phone] Vanda Guerrero MD Unavailable [phone] Jeana-Noreen Miles APRN WAXER TENDER Unavailable [facility] Miles APRN WAXER TENDER Unavailable [facility]-JdNoreen castro APRN WAXER TENDER Primary Car e Provider Kalyan Galvan Unavailable Unavailable Lashae Trevino [facility] Unavailable Eduardo Sharma MD Unavailable Rios Monteiro MD Unavailable Marcelo Artis PA-C Unavailable [phone] Rodrigo ManC Unavailable Jeana-JdNoreen castro APRN WAXER TENDER Unavailable Sudha Greene NP Primary Care Provider Agatha Null DPM, Podiatry /Foot and Ankle Surgery Unavailable [facility] [place] [facility] Unavailable Reason for Visit * Reason Onset Date Comments Musculoskeletal Problem 06/13/2016 Travel a dvice Encounter Details Date Type Department Care Team (Latest Contact Info) Description 06/13/[address] [facility] [address] [place] [address] Agatha Null DPM, Podiatry/Foot and Ankle Surgery [address] [place] [address] Musculoskeletal Problem (Travel advice) Social History Tobacco [...] to provider for review. Iain Barone RN ICAL LEADER documented in this encounter Plan of [...] Total Score: 11 05/02/ 016 7:09 AM CLINICAL LEADER documented as of this encounter Care Teams Granite Fabricator Relationship Specialty Start Date End Date Vanda Guerrero MD [address]305 [facility] [place] [address] PCP - General Internal Medicine 04/08/15 01/08/19 Vanda Guerrero MD [address] [facility] [place] [address] PCP - Assigned PCP 07/24/16 06/15/18 Noreen Flores APRN WAXER TENDER [address] [place] [address] [place] [address] PCP - Assigned PCP 06/16/18 08/13/18 Noreen Flores APRN WAXER TENDER [address] [place] [address] [place] [address] PCP - General Nurse Practitioner 01/09/19 12/12/21 Sudha Greene, MAURICIO [address] [address] PCP - General 11/01/22 Noreen Flores APRN WAXER TENDER [address] [place] [address] [place] [address] Assigned PCP 06/16/18 05/26/22 Kalyan Galvan Personal Advocate & Liaison (PAL) 08/08/19 04/26/21 Lashae Trevino, [facility] 1440 [facility] [place] [address] Pharmacist Pharmacist 10/14/19 12/01/20 Eduardo Sharma MD [address] [facility] [address] [place] [address] Assigned Sleep Provider 04/02/2005/07 [place] [address] [facility] 300 [place] [address] Assigned Musculoskeletal Provider 04/02/20 08/24/20 ChandraMarcelo PA-C [address] [facility] 300 [place] [address] Assigned Musculoskeletal Provider 08/25/20 08/20/21 Rodrigo Man PA-C [address] [facility] [address] [place] [id number] Assigned Surgical Provider 08/25/20 11/27/20 Noreen Flores APRN WAXER TENDER 3305 [facility] [place] [phone] Assigned PCP 08/05/22 03/16/23 Agatha Null DPM, Podiatry/Foot and Ankle Surgery [address] [facility] [address] [place] [id number] Assigned Musculoskeletal Provider 11/04/22 [facility] 3305 [facility] DAVID ORDOÑEZ [phone] Assigned PCP 07/05/23 documented as of this encounter
--- OUTSIDE RECORDS SUMMARY | 2023-10-18 09:51 | XMS_ITS | Encounter Summary ---
Author Name Unknown Organization [facility] Address [address] [place] [address] Care Team Providers Care Program Officer Name Role Phone Vanda Guerrero MD Primary Care Provider [phone] Vanda Guerrero MD Unavailable [phone] Jeana-Noreen Miles APRN LARD RENDERER Unavailable [facility] Miles APRN LARD RENDERER Unavailable [facility]-JdNoreen castro APRN LARD RENDERER Primary Car e Provider Kalyan Galvan Unavailable Unavailable Lashae Trevino [facility] Unavailable Eduardo Sharma MD Unavailable Rios Monteiro MD Unavailable [phone] Marcelo Artis-C Unavailable [phone] Rodrigo Man-C Unavailable [phone] Jeana-Noreen Miles APRN LARD RENDERER Unavailable Sudha Greene NP Primary Care Provider Agatha Null DPM, Podiatry /Foot and Ankle Surgery Unavailable [facility] [place] Unavailable Reason for Referral * Consultation - Closed Specialty Diagnoses / Procedures Referred By Rylie t Referred To Contact Diagnoses Cervicalgia History of lumbar fusion History of fusion of cervical spine Vanda Guerrero MD [address] [facility] [place] [address] [facility] [place] [address] [facility] [address] [place] [address] Referral ID Status Reason Start Date Expiration Date Visits Re quested Visits Authorized [id number] Closed 04/27/2015 04/26/2016 1 1 Comments [facility] is referring you to the Orthopedic Chip Tester Services at [facility]. The Chip Tester Senior Systems Architect will assist you in the coordination of your Orthopedic and Musculoskeletal Care as prescribed by your physician. The Chip Tester Senior Systems Architect will call you within 24 hours to help schedule your appointment, or you may contact the Chip Tester Senior Systems Architect at: [facility] ~ [facility] ~ [facility] ~ Type of Referral : Spine: Cervical / Thoracic: Medical Foundry Helper Timeframe requested: Routine Coverage of these services is subject to the terms and limitations of your health insurance plan. Please call member services at your health plan with any benefit or coverage questions. If X-rays, CT or MRI's have been performed, please contact the facility where they were done to arrange for clam picker, prior to your scheduled appointment. Please bring this referral request to your appointment and present it to your specialist. TING CARD MAKER Reason for Visit * Reason Onset Date Comments Leg Pain 04/27/2015 Encounter Details Date Type Department Care Team (Late st Contact Info) Description 04/27/2015 MyC Medical Advice [facility] 14[address] [facility] [place] [phone] Vanda Guerrero MD [address] [facility] [place] [address] Leg Pain Social [...] Kallie Mishra RN - 04/27/2015 5:20 PM GREETING CARD MAKER Entered referral, sent [employer] message to update the patient. TING CARD MAKER * Telephone Encounter - Vanda Guerrero MD - 04/27/2015 3:16 PM GREETING CARD MAKER Recommend FSOC evaluation in the next 1-2 weeks. TING CARD MAKER * Telephone Encounter - Kallie Mishra RN - 04/27/2015 3:14 PM GREETING CARD MAKER Would you recommend re-evaluation due to new symptoms? TING CARD MAKER documented in this encounter Plan of [...] documented as of this encounter Care Teams Program Officer Relationship Specialty Start Date End Date Vanda Guerrero MD [address] [facility] [place] [address] PCP - General Internal Medicine 04/08/15 01/08/19 Vanda Guerrero MD [address] [facility] [place] [address] PCP - Assigned PCP 07/24/16 06/15/18 Noreen Flores APRN LARD RENDERER [address] [place] [address] [place] [address] PCP - Assigned PCP 06/16/18 08/13/18 Noreen Flores APRN LARD RENDERER [address] [place] [address] [place] [address] PCP - General Nurse Practitioner 01/09/19 12/12/21 Sudha Greene NP [address] [address] PCP - General 11/01/22 Noreen Flores APRN LARD RENDERER [address] [place] [address] [place] [address] Assigned PCP 06/16/18 05/26/22 Kalyan Galvan Personal Advocate & Liaison (PAL) 08/08/19 04/26/21 Lashae Trevino, [facility] 1440 [facility] [place] [address] Pharmacist Pharmacist 10/14/19 12/01/20 Eduardo Sharma MD [address] [facility] 103 [place], [place] 4050[address] Assigned Sleep Provider 04/02/2005/07 [place] [address] [facility] 300 [place] [address] Assigned Musculoskeletal Provider 04/02/20 08/24/20 Marcelo Artis PA-C [address] [facility] 300 [place] [address] Assigned Musculoskeletal Provider 08/25/20 08/20/21 Rodrigo Man PA-C [address] [facility] [address] [place] [address] Assigned Surgical Provider 08/25/20 11/27/20 Noreen Flores APRN LARD RENDERER [address] [place] [address] [place] [id number] Assigned PCP 08/05/22 03/16/23 Agatha Null DPM, Podiatry/Foot and Ankle Surgery [address] [facility] 300 [place] [address] Assigned Musculoskeletal Provider 11/04/22 [facility] - [facility] [address] [place] [address] [place] [phone] Assigned PCP 07/05/23 documented as of this encounter
--- OUTSIDE RECORDS SUMMARY | 2023-10-18 09:51 | XMS_ITS | Encounter Summary ---
Author Name Unknown Organization [place] Address [address] [place] [address] Care Team Providers Care Cutter Grinder Name Role Phone Vanda Guerrero MD Primary Care Provider [phone] Vanda Guerrero MD Unavailable [phone] Jeana-Noreen Miles APRN HAND SHAKER Unavailable [facility]en Miles APRN HAND SHAKER Unavailable [facility]-JdNoreen castro APRN HAND SHAKER Primary Car e Provider Kalyan Galvan Unavailable Unavailable Lashae Trevino [facility] Unavailable Eduardo Sharma MD Unavailable Rios Monteiro MD Unavailable [phone] Marcelo ArtisC Unavailable [phone] Rodrigo Man-C Unavailable Jeana-Noreen Miles APRN HAND SHAKER Unavailable Sudha Greene NP Primary Care Provider Agatha Null DPM, Podiatry /Foot and Ankle Surgery Unavailable [facility] Unavailable Reason for Referral * Diagnostic Imaging Ultrasound - Closed Specialty Diagnoses / Procedures Referred By Rylie t Referred To Contact Radiology. Diagnoses Alkaline phosphatase elevation Procedures [place] [address] [place] [address] [place] [address] Rh Ul[facility]ound [facility] [address] [facility] [address] [place] [address] Referral ID Status Reason Start Date Expiration Date Visits Re quested Visits Authorized [id number] Closed 06/15/2017 06/15/2018 1 1 ERY LOADER Reason for Visit * Reason Onset Date Comments Lab Result Notice 06/15/2017 response to 06/12/17 result note Encounter Details Date Type Department Care Team (Late st Contact Info) Description 06/15/2017 MyC Medical Advice [facility] 3[address] [facility] [address] [place] [phone] Vanda Guerrero MD [address] [place] [address] [place] [phone] Lab Result Notice (response to 06/12/17 resu... [...] Kallie Celaya RN - 06/15/2017 4:26 PM BATTERY LOADER Sent [employer] message. ERY LOADER * Telephone Encounter - Vanda Guerrero MD - 06/15/2017 2:48 PM BATTERY LOADER Orders placed - please let patient know. ERY LOADER * Telephone Encounter - Kallie Celaya RN - 06/15/2017 2:31 PM BATTERY LOADER Patient ok to restart Metformin & for US. T'd up. Please advise. ERY LOADER documented in this encounter Plan of Treatment Not on file documented as of this encounter Results * US Abdomen Limited (06/21/2017 10:11 AM BATTERY LOADER) Anatomical Region Laterality Modality Abdomen/Pelvis Ultrasound Impressions 06/21/2017 10:49 AM BATTERY LOADER IMPRESSION: ??Fatty infiltration of the liver. No gallstones or bile duct dilatation. BRIDGETTE LOZA MD Narrative 06/21/2017 10:49 AM BATTERY LOADER ULTRASOUND ABDOMEN LIMITED 06/21/2017 10:11 AM HISTORY: [...] Depression Total Score: 12 018 1:02 PM BATTERY LOADER documented as of this encounter Care Teams Cutter Grinder Relationship Specialty Start Date End Date Vanda Guerrero MD [address] [place] [address] [place] [address] PCP - General Internal Medicine 04/08/15 01/08/19 Vanda Guerrero MD [address] [place] [address] [place] [address] PCP - Assigned PCP 07/24/16 06/15/18 Noreen Flores APRN HAND SHAKER [address] [place] [address] [place] [address] PCP - Assigned PCP 06/16/18 08/13/18 Noreen Flores APRN HAND SHAKER [address] [place] [address] [place] [address] PCP - General Nurse Practitioner 01/09/19 12/12/21 Sduha Greene, MAURICIO [address] [address] PCP - General 11/01/22 Noreen Flores APRN HAND SHAKER [address] [place] [address] [place] [address] Assigned PCP 06/16/18 05/26/22 Kalyan Galvan Personal Advocate & Liaison (PAL) 08/08/19 04/26/21 Lashae Trevino, [facility] [address] [place] [address] Pharmacist Pharmacist 10/14/19 12/01/20 Eduardo Sharma MD [address] [place] [address] [place] [address] Assigned Sleep Provider 04/02/2005/07 [place] [address] [facility] 300 [place], [place] [address] Assigned Musculoskeletal Provider 04/02/20 08/24/20 Marcelo Artis PA-C [id number] [place] [address] 300 [place] [address] Assigned Musculoskeletal Provider 08/25/20 08/20/21 Rodrigo Man PA-C [address] [place] [address] [place] [address] Assigned Surgical Provider 08/25/20 11/27/20 Noreen Flores APRN CNP [address] [place] [address] [place] [address] Assigned PCP 08/05/22 03/16/23 Agatha Null DPM, Podiatry/Foot and Ankle Surgery [address] [place] [address] [address] [place] [address] Assigned Musculoskeletal Provider 11/04/22 [facility] 3305 [facility] DAV[place] [address] Assigned PCP 07/05/23 documented as of this encounter
--- OUTSIDE RECORDS SUMMARY | 2023-10-18 09:51 | XMS_ITS | Encounter Summary ---
Author Name Unknown Organization [employer] Address [address] [place] [address] Care Team Providers Care Pharmacy Technician Inpatient Name Role Phone Selma Good APRN ASSOCIATE RESEARCH SCIENTIST Primary Care Pro vider Vanda Guerrero MD Primary Care Provider [phone] Vanda Guerrero MD Unavailable [phone] Jeana-JdNoreen castro APRN, CNP Unavailable Jeana-JdNoreen castro APRN, CNP Unavailable Jeana-JdNoreen castro APRN ASSOCIATE RESEARCH SCIENTIST Primary Car e Provider Kalyan Galvan Unavailable Unavailable Lashae Trevino [facility] Unavailable [phone] Eduardo Sharma MD Unavailable Rios Monteiro MD Unavailable [phone] Marcelo Artis PA-C Unavailable [phone] Rodrigo Man PA-C Unavailable [phone] Jeana-JdNoreen castro APRN ASSOCIATE RESEARCH SCIENTIST Unavailable Sudha Greene NP Primary Care Provider Agatha NullM, Podiatry /Foot and Ankle Surgery Unavailable [facility] Unavailable Encounter Details Date Type Department Care Team (Late st Contact Info) Description 09/24/2014 MyC Medical Advice [address] [place] [address] Shante Joya, RN [...] Inpatient Relationship Specialty Start Date End Date Selma Good APRN ASSOCIATE RESEARCH SCIENTIST [address] [facility] [place] [address] PCP - General 04/09/08 04/07/15 Vanda Guerrero MD [address] [facility] [place] [address] PCP - General Internal Medicine 04/08/15 01/08/19 Vanda Guerrero MD [facility]5 [facility] [place] [address] PCP - Assigned PCP 07/24/16 06/15/18 Noreen Flores APRN ASSOCIATE RESEARCH SCIENTIST [address] [facility] [place] [address] PCP - Assigned PCP 06/16/18 08/13/18 Noreen Flores APRN ASSOCIATE RESEARCH SCIENTIST [address] [place] [address] [place] [address] PCP - General Nurse Practitioner 01/09/19 12/12/21 Sudha Greene NP [address] [address] PCP - General 11/01/22 Noreen Flores APRN ASSOCIATE RESEARCH SCIENTIST [address] [place] [address] [place] [address] Assigned PCP 06/16/18 05/26/22 Kalyan Galvan Personal Advocate & Liaison (PAL) 08/08/19 04/26/21 Lashae Trevino [facility] [address] [place] [address] [place] [address] Pharmacist Pharmacist 10/14/19 12/01/20 Eduardo Sharma MD [address] [address] Assigned Sleep Provider 04/02/2005/07 [place] [id number] [place] [address] Assigned Musculoskeletal Provider 04/02/20 08/24/20 Marcelo Artis PA-C [address] [address] Assigned Musculoskeletal Provider 08/25/20 08/20/21 Rodrigo Man PA-C [address] [place] [address] [place] [address] Assigned Surgical Provider 08/25/20 11/27/20 Noreen Flores APRN ASSOCIATE RESEARCH SCIENTIST [address] [facility] [place] [address] Assigned PCP 08/05/22 03/16/23 Agatha Null DPM, Podiatry/Foot and Ankle Surgery [address] [place] [address] [place] [address] Assigned Musculoskeletal Provider 11/04/22 Clinic - [facility] [place] [facility] [address] [facility] [place] [address] Assigned PCP 07/05/23 documented as of this encounter
--- OUTSIDE RECORDS SUMMARY | 2023-10-18 09:51 | XMS_ITS | Encounter Summary ---
Author Name Unknown Organization [facility] Address [address] [place] [address] Care Team Providers Care Institutional Custodian Name Role Phone Vanda Guerrero MD Primary Care Provider [phone] Vanda Guerrero MD Unavailable [phone] Jeana-Noreen Miles APRN DIRECTOR OF CONTRACTS Unavailable [facility] Miles APRN DIRECTOR OF CONTRACTS Unavailable [facility]-JdNoreen castro APRN DIRECTOR OF CONTRACTS Primary Car e Provider Kalyan Galvan Unavailable Unavailable Lashae Trevino [facility] Unavailable [phone] Eduardo Sharma MD Unavailable Rios Monteiro MD Unavailable [phone] Marcelo Artis PA-C Unavailable [phone] Rodrigo ManC Unavailable [phone] Jeana-Noreen Miles APRN DIRECTOR OF CONTRACTS Unavailable Sudha Greene NP Primary Care Provider [phone] Agatha Null DPM, Podiatry /Foot and Ankle Surgery Unavailable [facility] [place] [facility] Unavailable Reason for Visit * Reason Onset Date Comments Patient/info Update 07/18/2017 post C7-T1 i nterlaminar epidural steroid injection Encounter Details Date Type Department Care Team (Late st Contact Info) Description 07/18/2017 Telephone [facility] Pain Management [place] [address] [facility] [address] [place], [place] [address] Jim Wang MD [address] [place] [address] Patient/info Update (post C7-T1 interlaminar epidural steroid [...] pt should call the nurse line at [phone]. ORATE TRAVEL COUNSELOR documented in this encounter Plan of Treatment Not on file documented as of this encounter Visit Diagnoses Not on filedocumented in this encounter Additional Health Concerns Infection Onset Date Last Indicated Resolved Time Rule Out COVID-19 08/25/2020 08/25/2020 08/26/2020 3:23 PM CDT Rule Out COVID-19 11/26/2022 11/26/2022 11/27/2022 3:38 PM CDT Assessment Noted Time PHQ-9 Depression Total Score: 12 018 1:02 PM CORPORATE TRAVEL COUNSELOR documented as of this encounter Care Teams Institutional Custodian Relationship Specialty Start Date End Date Vanda Guerrero MD [address] [place] [address] [place] [address] PCP - General Internal Medicine 04/08/15 01/08/19 Vanda Guerrero MD [address] [place] [address] [place] [address] PCP - Assigned PCP 07/24/16 06/15/18 Noreen Flores APRN DIRECTOR OF CONTRACTS [address] [place] [address] [place] [address] PCP - Assigned PCP 06/16/18 08/13/18 Noreen Flores APRN DIRECTOR OF CONTRACTS [address] [place] [address] [place] [address] PCP - General Nurse Practitioner 01/09/19 12/12/21 Sudha Greene, MAURICIO [address] [address] PCP - General 11/01/22 Noreen Flores APRN DIRECTOR OF CONTRACTS [address] [place] [address] [place] [address] Assigned PCP 06/16/18 05/26/22 Kalyan Galvan Personal Advocate & Liaison (PAL) 08/08/19 04/26/21 Lashae Trevino, [facility] [address] [place] [address] Pharmacist Pharmacist 10/14/19 12/01/20 Eduardo Sharma MD [address] [place] [address] [place] [address] Assigned Sleep Provider 04/02/2005/07 [place] [address] [facility] [address] [place] [address] Assigned Musculoskeletal Provider 04/02/20 08/24/20 Marcelo Artis PA-C [address] [facility] 300 [place] [address] Assigned Musculoskeletal Provider 08/25/20 08/20/21 Rodrigo Man PA-C [address] [place] [address] [place] [address] Assigned Surgical Provider 08/25/20 11/27/20 Noreen Flores APRN DIRECTOR OF CONTRACTS [address] [place] [address] [place] [id number] Assigned PCP 08/05/22 03/16/23 Agatha Null DPM, Podiatry/Foot and Ankle Surgery [address] [place] [address] [place] [address] [place] [address] Assigned Musculoskeletal Provider 11/04/22 [facility] 3305 [facility] [place] [id number] Assigned PCP 07/05/23 documented as of this encounter
--- OUTSIDE RECORDS SUMMARY | 2023-10-18 09:52 | XMS_ITS | Encounter Summary ---
Author Name Unknown Organization [facility] Address [address] [place] [address] Care Team Providers Care Safety Instructor Name Role Phone Selma Good APRN DIRECTOR OF SOFTWARE DEVELOPMENT Primary Care Pro vider Vanda Guerrero MD Primary Care Provider [phone] Vanda Guerrero MD Unavailable [phone] Jeana-JdNoreen castro APRN, CNP Unavailable Jeana-JdNoreen castro APRN, CNP Unavailable Jeana-JdNoreen castro APRN DIRECTOR OF SOFTWARE DEVELOPMENT Primary Car e Provider Kalyan Galvan Unavailable Unavailable Lashae Trevino [facility] Unavailable [phone] Eduardo Sharma MD Unavailable Rios Monteiro MD Unavailable [phone] Marcelo Artis-Aleyda Unavailable [phone] Rodrigo Man-C Unavailable [phone] Jeana-JdNoreen castro APRN DIRECTOR OF SOFTWARE DEVELOPMENT Unavailable Sudha Greene NP Primary Care Provider Agatha NullM, Podiatry /Foot and Ankle Surgery Unavailable [facility] Unavailable Reason for Referral * Referral not Required - Closed Specialty Diagnoses / Procedures Referred By Rylie garcia Referred To Contact Diagnoses Upper back pain Selma Good APRN DIRECTOR OF SOFTWARE DEVELOPMENT [address] [facility] [place] [address] [facility] [address]ast[address] [place] [address] Phone: [phone] Referral ID Status Reason Start Date Expiration Date Visits Re quested Visits Authorized [id number] Closed 01/18/2010 01/18/2010 1 1 Comments Coverage of these services is subject to the terms and limitations of your health insurance plan. Please call member services at your health plan with any benefit or coverage questions. [facility] referral to [facility] (Katelyn [place] M.D.) [phone]. Any CT, MRI or procedures ordered by your specialist must be performed at a [facility] facility OR coordinated by your clinic's referral office at [phone]. If X-rays, CTs or MRIs have been performed, please contact the facility where they were done, to arrange for flower picker prior to your scheduled appointment. Please bring this referral request to your appointment and present it to your specialist. Reason for Visit * Reason Onset Date Comments Referral 01/17/2010 Encounter Details Date Type Department Care Team (Late st Contact Info) Description 01/17/2010 [facility] Medical Advice [place] [address] [facility] [place] [address] Selma Good, SEAN DIRECTOR OF SOFTWARE DEVELOPMENT [address] [facility] [place] [address] Referral Social History Tobacco Use Types Packs/Day [...] CONSULT PLASTIC SURGERY (01/31/2010) Selma Good APRN DIRECTOR OF SOFTWARE DEVELOPMENT REFERRAL documented in this encounter Visit Diagnoses Diagnosis Upper back pain- Primary Pain in thoracic spine documented in this encounter Additional Health Concerns Infection Onset Date Last Indicated Resolved Time Rule Out COVID-19 08/25/2020 08/25/2020 08/26/2020 3:23 PM CDT Rule Out COVID-19 11/26/2022 11/26/2022 11/27/2022 3:38 PM CDT documented as of this encounter Care Teams Safety Instructor Relationship Specialty Start Date End Date Selma Good APRN DIRECTOR OF SOFTWARE DEVELOPMENT [address] [place] [address] [place] [address] PCP - General 04/09/08 04/07/15 Vanda Guerrero MD [address] [place] [address] [place] [address] PCP - General Internal Medicine 04/08/15 01/08/19 Vanda Guerrero MD [address] [place] [address] [place] [address] PCP - Assigned PCP 07/24/16 06/15/18 Noreen Flores APRN DIRECTOR OF SOFTWARE DEVELOPMENT [address] [place] [address] [place] [address] PCP - Assigned PCP 06/16/18 08/13/18 Noreen Flores APRN DIRECTOR OF SOFTWARE DEVELOPMENT [address] [place] [address] [place] [address] PCP - General Nurse Practitioner 01/09/19 12/12/21 Sudha Greene NP [address] [address] PCP - General 11/01/22 Noreen Flores APRN DIRECTOR OF SOFTWARE DEVELOPMENT [address] [facility] [place] [address] Assigned PCP 06/16/18 05/26/22 Kalyan Galvan Personal Advocate & Liaison (PAL) 08/08/19 04/26/21 Lashae Trevino, [facility] [address] [facility] [address] [place] [id number] Pharmacist Pharmacist 10/14/19 12/01/20 Eduardo Sharma MD [address] [place] [address] [place] [address] Assigned Sleep Provider 04/02/2005/07 [place] [address] [facility] [place] [address] [place] [address] Assigned Musculoskeletal Provider 04/02/20 08/24/20 Marcelo Artis PA-C [address] [place] [address] [place] [address] Assigned Musculoskeletal Provider 08/25/20 08/20/21 Rodrigo Man PA-C [address] [place] [address] [place] [address] Assigned Surgical Provider 08/25/20 11/27/20 Noreen Flores APRN DIRECTOR OF SOFTWARE DEVELOPMENT [address] [facility] [place] [address] Assigned PCP 08/05/22 03/16/23 Agatha Null DPM, Podiatry/Foot and Ankle Surgery [address] [place] [address] Assigned Musculoskeletal Provider 11/04/22 Clinic - Nt[facility] [place] [facility] [address] [facility] [address] [place] [address] Assigned PCP 07/05/23 documented as of this encounter
--- OUTSIDE RECORDS SUMMARY | 2023-10-18 09:52 | XMS_ITS | Encounter Summary ---
Author Name Unknown Organization [facility] Address [address] [place] [address] Care Team Providers Care Manager Sas Name Role Phone Selma Good APRN CARDIAC MONITOR Primary Care Pro vider Vanda Guerrero MD Primary Care Provider [phone] Vanda Guerrero MD Unavailable [phone] Jeana-JdNoreen castro APRN, CNP Unavailable Jeana-JdNoreen castro APRN, CNP Unavailable Jeana-JdNoreen castro APRN CARDIAC MONITOR Primary Car e Provider Kalyan Galvan Unavailable Unavailable Lashae Trevino [facility] Unavailable [phone] Eduardo Sharma MD Unavailable Rios Monteiro MD Unavailable [phone] Marcelo Artis PA-C Unavailable [phone] Rodrigo Man PA-C Unavailable [phone] Jeana-JdNoreen castro APRN CARDIAC MONITOR Unavailable Sudha Greene NP Primary Care Provider Agatha NullM, Podiatry /Foot and Ankle Surgery Unavailable [facility] [place] [facility] Unavailable Encounter Details Date Type Department Care Team (Late st Contact Info) Description 04/17/2010 MyC Medical Advice [address] [place] [phone] Selma Good APRN CARDIAC MONITOR [address] [place] [address] [place] [address] Social History Tobacco Use Types Packs/Day Years [...] respond to pt regarding her sodium intake. 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 documented in this encounter Plan of Treatment Not on file documented as of this encounter Visit Diagnoses Not on filedocumented in this encounter Additional Health Concerns Infection Onset Date Last Indicated Resolved Time Rule Out COVID-19 08/25/2020 08/25/2020 08/26/2020 3:23 PM CDT Rule Out COVID-19 11/26/2022 11/26/2022 11/27/2022 3:38 PM CDT documented as of this encounter Care Teams Manager Sas Relationship Specialty Start Date End Date Selma Good APRN CARDIAC MONITOR [address] [place] [address] [place] [address] PCP - General 04/09/08 04/07/15 Vanda Guerrero MD [address] [place] [address] [place] [address] PCP - General Internal Medicine 04/08/15 01/08/19 Vanda Guerrero MD [address] [place] [address] [place] [address] PCP - Assigned PCP 07/24/16 06/15/18 Noreen Flores APRN CARDIAC MONITOR [address] [place] [address] [place] [address] PCP - Assigned PCP 06/16/18 08/13/18 Noreen Flores APRN CARDIAC MONITOR [address] [place] [address] [place] [address] PCP - General Nurse Practitioner 01/09/19 12/12/21 Sudha Greene, MAURICIO [address] [address] PCP - General 11/01/22 Noreen Flores APRN CARDIAC MONITOR [address] [place] [address] [place] [address] Assigned PCP 06/16/18 05/26/22 Kalyan Galvan Personal Advocate & Liaison (PAL) 08/08/19 04/26/21 [facility] [facility] [place] [id number] Pharmacist Pharmacist 10/14/19 12/01/20 Eduardo Sharma MD [address] [facility] 103 [place] [address] Assigned Sleep Provider 04/02/2005/07 [place] [address] [facility] 300 [place] [id number] Assigned Musculoskeletal Provider 04/02/20 08/24/20 Marcelo Artis PA-C [address] [address] Assigned Musculoskeletal Provider 08/25/20 08/20/21 Rodrigo Man PA-C [address] [address] Assigned Surgical Provider 08/25/20 11/27/20 Noreen Flores APRN CARDIAC MONITOR [address] [place] [address] [place] [address] Assigned PCP 08/05/22 03/16/23 Agatha Null DPM, Podiatry/Foot and Ankle Surgery [address] [place] [address] 300 [place] [address] Assigned Musculoskeletal Provider 11/04/22 [facility] [place] [place] [facility] [address] [place], [place] [address] [address] Assigned PCP 07/05/23 documented as of this encounter
--- OUTSIDE RECORDS SUMMARY | 2023-10-18 09:52 | XMS_ITS | Encounter Summary ---
Author Name Unknown Organization [facility] Address [address] [place] [address] Care Team Providers Care Registered Nurse Supervisor Name Role Phone Selma Good APRN SUPERVISOR PREP Primary Care Pro vider Vanda Guerrero MD Primary Care Provider [phone] Vanda Guerrero MD Unavailable [phone] Jeana-JdNoreen castro APRN, CNP Unavailable Jeana-JdNoreen castro APRN, CNP Unavailable Jeana-JdNoreen castro APRN SUPERVISOR PREP Primary Car e Provider Kalyan Galvan Unavailable Unavailable Lashae Trevino [facility] Unavailable [phone] Eduardo Sharma MD Unavailable Rios Monteiro MD Unavailable [phone] Marcelo Artis-Aleyda Unavailable [phone] Rodrigo Man-C Unavailable [phone] Jeana-JdNoreen castro APRN SUPERVISOR PREP Unavailable Sudha Greene NP Primary Care Provider Agatha NullM, Podiatry /Foot and Ankle Surgery Unavailable [facility] [place] [facility] Unavailable Reason for Visit * Reason Onset Date Comments Symptoms 03/07/2012 uti Encounter Details Date Type Department Care Team (Late st Contact Info) Description 03/07/2012 [facility] [address] [place] [address] [place] [phone] Selma Good, SEAN SUPERVISOR PREP [address] [facility] [place] [address] Symptoms (uti) Social History Tobacco Use Types [...] of this encounter Care Teams Registered Nurse Supervisor Relationship Specialty Start Date End Date Selma Good, SEAN SUPERVISOR PREP [address] [place] [address] [place] [address] PCP - General 04/09/08 04/07/15 Vanda Guerrero MD [address] [place] [address] [place] [address] PCP - General Internal Medicine 04/08/15 01/08/19 Vanda Guerrero MD [address] [place] [address] [place] [address] PCP - Assigned PCP 07/24/16 06/15/18 Noreen Flores APRN SUPERVISOR PREP [address] [place] [address] [place] [address] PCP - Assigned PCP 06/16/18 08/13/18 Noreen Flores APRN SUPERVISOR PREP [address] [place] [address] [place] [address] PCP - General Nurse Practitioner 01/09/19 12/12/21 Sudha Greene NP [address] [address] PCP - General 11/01/22 Noreen Flores APRN SUPERVISOR PREP [address] [place] [address] [place] [address] Assigned PCP 06/16/18 05/26/22 Kalyan Galvan Personal Advocate & Liaison (PAL) 08/08/19 04/26/21 [facility] [address] [place] [address] [place] [id number] Pharmacist Pharmacist 10/14/19 12/01/20 Eduardo Sharma MD [address] [facility] 103 [place] [address] Assigned Sleep Provider 04/02/2005/07 Rios Monteiro MD [address] [place] [address] Assigned Musculoskeletal Provider 04/02/20 08/24/20 Marcelo Artis, PA-C [address] [facility] 300 [place] [address] Assigned Musculoskeletal Provider 08/25/20 08/20/21 Rodrigo Man PA-C [address] [facility] 450 [place] [address] Assigned Surgical Provider 08/25/20 11/27/20 Noreen Flores APRN SUPERVISOR PREP 3[address] [facility] [place] [address] Assigned PCP 08/05/22 03/16/23 Agatha Null DPM, Podiatry/Foot and Ankle Surgery [address] [place] [address] [place] [address] Assigned Musculoskeletal Provider 11/04/22 Clinic - [place] [place] [facility] 3[address] [facility] [place] [id number] Assigned PCP 07/05/23 documented as of this encounter
--- OUTSIDE RECORDS SUMMARY | 2023-10-18 09:52 | XMS_ITS | Encounter Summary ---
Author Name Unknown Organization [facility] Address [address] [place] [address] Care Team Providers Care Ruby Developer Name Role Phone Selma Good APRN MACHINE FEED OPERATOR Primary Care Pro vider Vanda Guerrero MD Primary Care Provider [phone] Vanda Guerrero MD Unavailable [phone] Jeana-JdNoreen castro APRN, CNP Unavailable Jeana-JdNoreen castro APRN, CNP Unavailable Jeana-JdNoreen castro APRN MACHINE FEED OPERATOR Primary Car e Provider Kalyan Galvan Unavailable Unavailable Lashae Trevino [facility] Unavailable [phone] Eduardo Sharma MD Unavailable Rios Monteiro MD Unavailable [phone] Marcelo Artis PA-C Unavailable [phone] Rodrigo Man PA-C Unavailable [phone] Jeana-JdNoreen castro APRN MACHINE FEED OPERATOR Unavailable Sudha Greene NP Primary Care Provider Agatha NullM, Podiatry /Foot and Ankle Surgery Unavailable [facility] [place] [facility] Unavailable Encounter Details Date Type Department Care Team (Late st Contact Info) Description 12/05/2012 [facility] Medical Advice [address] [place] [address] Alejo Casas Social History [...] as of this encounter Care Teams Ruby Developer Relationship Specialty Start Date End Date Selma Good APRN MACHINE FEED OPERATOR 3[address] [facility] [place] [address] PCP - General 04/09/08 04/07/15 Vanda Guerrero MD [address] [place] [address] [place] [address] PCP - General Internal Medicine 04/08/15 01/08/19 Vanda Guerrero MD [address] [place] [address] [place] [address] PCP - Assigned PCP 07/24/16 06/15/18 Noreen Flores APRN MACHINE FEED OPERATOR [facility] [place] [address] PCP - Assigned PCP 06/16/18 08/13/18 Noreen Flores APRN MACHINE FEED OPERATOR [address] [place] [address] [place] [address] PCP - General Nurse Practitioner 01/09/19 12/12/21 Sudha Greene NP [address] [address] PCP - General 11/01/22 Noreen Flores APRN MACHINE FEED OPERATOR [address] [place] [address] [place] [address] Assigned PCP 06/16/18 05/26/22 Kalyan Galvan Personal Advocate & Liaison (PAL) 08/08/19 04/26/21 [facility] [address] [place] [address] [place] [address] Pharmacist Pharmacist 10/14/19 12/01/20 Eduardo Sharma MD [address] [address] Assigned Sleep Provider 04/02/2005/07 R[place] [id number] [place] [address] 300 [place] [address] Assigned Musculoskeletal Provider 04/02/20 08/24/20 Marcelo Artis PA-C [address] [facility] 300 [place] [address] Assigned Musculoskeletal Provider 08/25/20 08/20/21 Rodrigo Man PA-C [address] [place] [place] [address] Assigned Surgical Provider 08/25/20 11/27/20 Noreen Flores APRN MACHINE FEED OPERATOR 3305 [facility] [place] [address] Assigned PCP 08/05/22 03/16/23 Agatha Null DPM, Podiatry/Foot and Ankle Surgery [address] [place] [address] [place] [address]65[address] Assigned Musculoskeletal Provider 11/04/22 Clinic - [facility] [place] [facility] 3305 [facility] [place] [address] Assigned PCP 07/05/23 documented as of this encounter
--- OUTSIDE RECORDS SUMMARY | 2023-10-18 09:52 | XMS_ITS | Encounter Summary ---
Author Name Unknown Organization [place] Address [address] [place] [address] Care Team Providers Care Gastroenterology Physician Name Role Phone Selma Good APRN LEGAL NURSE CONSULTANT Primary Care Pro vider Vanda Guerrero MD Primary Care Provider [phone] Vanda Guerrero MD Unavailable [phone] Jeana-JdNoreen castro APRN, CNP Unavailable Jeana-JdNoreen castro APRN, CNP Unavailable Jeana-JdNoreen castro APRN LEGAL NURSE CONSULTANT Primary Car e Provider Kalyan Galvan Unavailable Unavailable Lashae Trevino [facility] Unavailable [phone] Eduardo Sharma MD Unavailable Rios Monteiro MD Unavailable [phone] Marcelo Artis-Aleyda Unavailable [phone] Rodrigo Man-C Unavailable [phone] Jeana-JdNoreen castro APRN LEGAL NURSE CONSULTANT Unavailable Sudha Greene NP Primary Care Provider Agatha NullM, Podiatry /Foot and Ankle Surgery Unavailable [facility] Unavailable Reason for Visit * Reason Onset Date Comments Medication Question 05/29/2012 wellbutrin Encounter Details Date Type Department Care Team (Late st Contact Info) Description 05/29/2012 MyC Medical Advice [address] [place] [phone] Selma Good, MATTRESS MAKER LEGAL NURSE CONSULTANT [address] [place] [address] [place] [address] Medication Question (wellbutrin) Social History Tobacco Use [...] documented as of this encounter Care Teams Gastroenterology Physician Relationship Specialty Start Date End Date Selma Good, MATTRESS MAKER LEGAL NURSE CONSULTANT [address] [place] [address] [place] [address] PCP - General 04/09/08 04/07/15 Vanda Guerrero MD [address] [place] [address] [place] [address] PCP - General Internal Medicine 04/08/15 01/08/19 Vanda Guerrero MD [address] [place] [address] [place] [address] PCP - Assigned PCP 07/24/16 06/15/18 Noreen Flores APRN LEGAL NURSE CONSULTANT [address] [place] [address] [place] [address] PCP - Assigned PCP 06/16/18 08/13/18 Noreen Flores APRN LEGAL NURSE CONSULTANT [address] [place] [address] [place] [address] PCP - General Nurse Practitioner 01/09/19 12/12/21 Sudha Greene NP [address] [address] PCP - General 11/01/22 Noreen Flores APRN LEGAL NURSE CONSULTANT [address] [place] [address] [place] [address] Assigned PCP 06/16/18 05/26/22 Kalyan Galvan Personal Advocate & Liaison (PAL) 08/08/19 04/26/21 [facility] [address] [place] [address] [place] [id number] Pharmacist Pharmacist 10/14/19 12/01/20 Eduardo Sharma MD [address] [facility] 103 [place] [id number] Assigned Sleep Provider 04/02/2005/07 [place] [address] [facility] 300 [place] [id number] Assigned Musculoskeletal Provider 04/02/20 08/24/20 Marcelo Artis PA-C [address] [facility] 300 [place] [address] Assigned Musculoskeletal Provider 08/25/20 08/20/21 Rodrigo Man PA-C [address] [facility] 450 [place] [address] Assigned Surgical Provider 08/25/20 11/27/20 Noreen Flores APRN CNP [address] [place] [address] [place] [address] Assigned PCP 08/05/22 03/16/23 Agatha Null DPM, Podiatry/Foot and Ankle Surgery 09882 [facility] 300 [place] [address] Assigned Musculoskeletal Provider 11/04/22 [facility] [place] 3305 [facility] [place] [id number] Assigned PCP 07/05/23 documented as of this encounter
--- OUTSIDE RECORDS SUMMARY | 2023-10-18 09:52 | XMS_ITS | Encounter Summary ---
Author Name Unknown Organization [place] Address [address] [place] [address] Care Team Providers Care Processing Technician Name Role Phone Selma Good APRN AGRONOMY MANAGER Primary Care Pro vider Vanda Guerrero MD Primary Care Provider [phone] Vanda Guerrero MD Unavailable [phone] Jeana-JdNoreen castro APRN, CNP Unavailable Jeana-JdNoreen castro APRN, CNP Unavailable Jeana-JdNoreen castro APRN AGRONOMY MANAGER Primary Car e Provider Kalyan Galvan Unavailable Unavailable Lashae Trevino [facility] Unavailable [phone] Eduardo Sharma MD Unavailable Rios Monteiro MD Unavailable [phone] Marcelo Artis PA-C Unavailable [phone] Rodrigo Man PA-C Unavailable [phone] Jeana-JdNoreen castro APRN AGRONOMY MANAGER Unavailable Sudha Greene NP Primary Care Provider Agatha NullM, Podiatry /Foot and Ankle Surgery Unavailable [facility] Unavailable Encounter Details Date Type Department Care Team (Late st Contact Info) Description 02/11/2010 [facility] Adv[facility] [place] [id number] [facility] [place] [phone] Alejo Casas Social [...] as of this encounter Care Teams Processing Technician Relationship Specialty Start Date End Date Selma Good APRN AGRONOMY MANAGER [address] [place] [address] [place] [address] PCP - General 04/09/08 04/07/15 Vanda Guerrero MD [address] [place] [address] [place] [address] PCP - General Internal Medicine 04/08/15 01/08/19 Vanda Guerrero MD [address] [place] [address] [place] [address] PCP - Assigned PCP 07/24/16 06/15/18 Noreen Flores APRN AGRONOMY MANAGER [address] [place] [address] [place] [address] PCP - Assigned PCP 06/16/18 08/13/18 Noreen Flores APRN AGRONOMY MANAGER [address] [facility] [place] [address] PCP - General Nurse Practitioner 01/09/19 12/12/21 Sudha Greene NP [address] [address] PCP - General 11/01/22 Noreen Flores APRN AGRONOMY MANAGER [address] [place] [address] [place] [address] Assigned PCP 06/16/18 05/26/22 Kalyan Galvan Personal Advocate & Liaison (PAL) 08/08/19 04/26/21 [facility] [address] [place] [address] [place] [address] Pharmacist Pharmacist 10/14/19 12/01/20 Eduardo hSarma MD [address] [place] 103 [place] [address] Assigned Sleep Provider 04/02/2005/07 [place] [address] [facility] [place] 300 [place] [address] Assigned Musculoskeletal Provider 04/02/20 08/24/20 Marcelo Artis PA-C 57051 [facility] [place] 300 [place] [address] Assigned Musculoskeletal Provider 08/25/20 08/20/21 Rodrigo Man PA-C [address] [place] 450 [place] [address] Assigned Surgical Provider 08/25/20 11/27/20 Noreen Flores APRN AGRONOMY MANAGER [address] [facility] [place] [address] Assigned PCP 08/05/22 03/16/23 Agatha Null DPM, Podiatry/Foot and Ankle Surgery [address] [place] 300 [place] 364987 Assigned Musculoskeletal Provider 11/04/22 [facility] [place] [facility] [address] [place] [address] Assigned PCP 07/05/23 documented as of this encounter
--- OUTSIDE RECORDS SUMMARY | 2023-10-18 09:52 | XMS_ITS | Encounter Summary ---
Author Name Unknown Organization [place] Address [address] [place] [address] Care Team Providers Care Tunnel Kiln Firer Name Role Phone Selma Good APRN GROUND PRODUCTS DIRECTOR Primary Care Pro vider Vanda Guerrero MD Primary Care Provider [phone] Vanda Guerreor MD Unavailable [phone] Jeana-JdNoreen castro APRN, CNP Unavailable Jeana-JdNoreen castro APRN, CNP Unavailable Jeana-JdNoreen castro APRN GROUND PRODUCTS DIRECTOR Primary Car e Provider Kalyan Galvan Unavailable Unavailable Lashae Trevino [facility] Unavailable [phone] Eduardo Sharma MD Unavailable Rios Monteiro MD Unavailable [phone] Marcelo Artis-Aleyda Unavailable [phone] Rodrigo Man-C Unavailable [phone] Jeana-JdNoreen castro APRN GROUND PRODUCTS DIRECTOR Unavailable Sudha Greene NP Primary Care Provider Agatha NullM, Podiatry /Foot and Ankle Surgery Unavailable [facility] Unavailable Reason for Visit * Reason Onset Date Comments Cellulitis 09/13/2010 not completely g one Encounter Details Date Type Department Care Team (Late st Contact Info) Description 09/13/2010 MyC Medical Advice [facility] [address] [place] [address] [place] [phone] Selma Good, MOLD SPRAYER GROUND PRODUCTS DIRECTOR [facility]5 [facility] [place] [address] Cellulitis (not completely gone ) Social History [...] documented as of this encounter Care Teams Tunnel Kiln Firer Relationship Specialty Start Date End Date Selma Good, SEAN GROUND PRODUCTS DIRECTOR [address] [place] [address] [place] [address] PCP - General 04/09/08 04/07/15 Vanda Guerrero MD [address] [place] [address] [place] [address] PCP - General Internal Medicine 04/08/15 01/08/19 Vanda Guerrero MD [address] [place] [address] [place] [address] PCP - Assigned PCP 07/24/16 06/15/18 Noreen Flores APRN GROUND PRODUCTS DIRECTOR [address] [place] [address] [place] [address] PCP - Assigned PCP 06/16/18 08/13/18 Noreen Flores APRN GROUND PRODUCTS DIRECTOR [address] [place] [address] [place] [address] PCP - General Nurse Practitioner 01/09/19 12/12/21 Sudha Greene NP [address] [address] PCP - General 11/01/22 Noreen Flores APRN GROUND PRODUCTS DIRECTOR [address] [place] [address] [place] [address] Assigned PCP 06/16/18 05/26/22 Kalyan Galvan Personal Advocate & Liaison (PAL) 08/08/19 04/26/21 [facility] [address] [place] [address] [place] [address] Pharmacist Pharmacist 10/14/19 12/01/20 Eduardo Sharma MD [address] [place] [address] Assigned Sleep Provider 04/02/2005/07 Rios Monteiro MD [address] [place] [address] 300 [place], [place] 259547 Assigned Musculoskeletal Provider 04/02/20 08/24/20 Marcelo Artis, PA-C [address] [place] [address] 300 [place] [address] Assigned Musculoskeletal Provider 08/25/20 08/20/21 Rodrigo Man PA-C [address] [place] 450 [place] [address] Assigned Surgical Provider 08/25/20 11/27/20 Noreen Flores APRN GROUND PRODUCTS DIRECTOR 3305 [facility] [place] [address] Assigned PCP 08/05/22 03/16/23 Agatha Null DPM, Podiatry/Foot and Ankle Surgery [address] [place] 300 [place] [address] Assigned Musculoskeletal Provider 11/04/22 Clinic - [place] [place] [facility] 3305 [facility] [place] [phone] Assigned PCP 07/05/23 documented as of this encounter
--- OUTSIDE RECORDS SUMMARY | 2023-10-18 09:52 | XMS_ITS | Encounter Summary ---
Author Name Unknown Organization [facility] Address [address] [place] [address] Care Team Providers Care Kitchen And Counter Worker Name Role Phone Selma Good APRN AUTOMOTIVE PARTS COORDINATOR Primary Care Pro vider Vanda Guerrero MD Primary Care Provider [phone] Vanda Guerrero MD Unavailable [phone] Jeana-JdNoreen castro APRN, CNP Unavailable Jeana-JdNoreen castro APRN, CNP Unavailable Jeana-JdNoreen castro APRN AUTOMOTIVE PARTS COORDINATOR Primary Car e Provider Kalyan Galvan Unavailable Unavailable Lashae Trevino [facility] Unavailable [phone] Eduardo Sharma MD Unavailable Rios Monteiro MD Unavailable [phone] Marcelo Artis PA-C Unavailable [phone] Rodrigo Man PA-C Unavailable [phone] Jeana-JdNoreen castro APRN AUTOMOTIVE PARTS COORDINATOR Unavailable Sudha rGeene NP Primary Care Provider Agatha NullM, Podiatry /Foot and Ankle Surgery Unavailable [facility] Unavailable Encounter Details Date Type Department Care Team (Late st Contact Info) Description 05/28/2012 [facility] Medical Advice [address] [place] [phone] Alejo Casas Social History [...] as of this encounter Care Teams Kitchen And Counter Worker Relationship Specialty Start Date End Date Selma Good APRN AUTOMOTIVE PARTS COORDINATOR 3305 [facility] [place] [address] PCP - General 04/09/08 04/07/15 Vanda Guerrero MD [address] [place] [address] [place] [address] PCP - General Internal Medicine 04/08/15 01/08/19 Vanda Guerrero MD [address] [place] [address] [place] [address] PCP - Assigned PCP 07/24/16 06/15/18 Noreen Flores APRN AUTOMOTIVE PARTS COORDINATOR [facility] [place] [address] PCP - Assigned PCP 06/16/18 08/13/18 Noreen Flores APRN AUTOMOTIVE PARTS COORDINATOR [address] [place] [address] [place] [address] PCP - General Nurse Practitioner 01/09/19 12/12/21 Sudha Greene NP [address] [address] PCP - General 11/01/22 Noreen Flores APRN AUTOMOTIVE PARTS COORDINATOR [address] [place] [address] [place] [address] Assigned PCP 06/16/18 05/26/22 Kalyan Galvan Personal Advocate & Liaison (PAL) 08/08/19 04/26/21 [facility] [address] [place] [address] [place] [address] Pharmacist Pharmacist 10/14/19 12/01/20 Eduardo Sharma MD [address] [address] Assigned Sleep Provider 04/02/2005/07 Rios [place] [id number] [place] [address] 300 [place] [address] Assigned Musculoskeletal Provider 04/02/20 08/24/20 Marcelo Artis PA-C [address] [facility] 300 [place] [address] Assigned Musculoskeletal Provider 08/25/20 08/20/21 Rodrigo Man PA-C [address] [place] 450 [place] [address] Assigned Surgical Provider 08/25/20 11/27/20 Noreen Flores APRN AUTOMOTIVE PARTS COORDINATOR 3305 [facility] [place] [address] Assigned PCP 08/05/22 03/16/23 Agatha Null DPM, Podiatry/Foot and Ankle Surgery [address] [place] 300 [place] [id number] Assigned Musculoskeletal Provider 11/04/22 Clinic - [place] [place] 3305 [facility] [place] [address] Assigned PCP 07/05/23 documented as of this encounter
--- OUTSIDE RECORDS SUMMARY | 2023-10-18 09:52 | XMS_ITS | Encounter Summary ---
Author Name Unknown Organization [place] Address [address] [place] [address] Care Team Providers Care Grab Setter Name Role Phone Selma Good APRN WAITER/WAITRESS FIRST CLASS Primary Care Pro vider Vanda Guerrero MD Primary Care Provider [phone] Vanda Guerrero MD Unavailable [phone] Jeana-JdNoreen castro APRN, CNP Unavailable Jeana-JdNoreen castro APRN, CNP Unavailable Jeana-JdNoreen castro APRN WAITER/WAITRESS FIRST CLASS Primary Car e Provider Kalyan Galvan Unavailable Unavailable Lashae Trevino [facility] Unavailable [phone] Eduardo Sharma MD Unavailable Rios Monteiro MD Unavailable [phone] Marcelo Artis-Aleyda Unavailable [phone] Rodrigo Man-C Unavailable [phone] Jeana-JdNoreen castro APRN WAITER/WAITRESS FIRST CLASS Unavailable Sudha Greene NP Primary Care Provider [phone] Agatha NullM, Podiatry /Foot and Ankle Surgery Unavailable [facility] Unavailable Reason for Visit * Reason Onset Date Comments Patient Request 07/01/2009 Encounter Details Date Type Department Care Team (Late st Contact Info) Description 07/01/2009 [facility] [address] [place] [address] [place] [phone] Selma Good APRN WAITER/WAITRESS FIRST CLASS [address] [place] [address] [place] [address] Patient Request Social History Tobacco Use Types [...] documented as of this encounter Care Teams Grab Setter Relationship Specialty Start Date End Date Selma Good APRN WAITER/WAITRESS FIRST CLASS [address] [place] [address] [place] [address] PCP - General 04/09/08 04/07/15 Vanda Guerrero MD [address] [place] [address] [place] [address] PCP - General Internal Medicine 04/08/15 01/08/19 Vanda Guerrero MD [address] [place] [address] [place] [address] PCP - Assigned PCP 07/24/16 06/15/18 Noreen Flores APRN CNP 3305 [facility] [place] [address] PCP - Assigned PCP 06/16/18 08/13/18 Noreen Flores APRN WAITER/WAITRESS FIRST CLASS [address] [place] [address] [place] [address] PCP - General Nurse Practitioner 01/09/19 12/12/21 Sudha Greene NP [address] [address] PCP - General 11/01/22 Noreen Flores APRN WAITER/WAITRESS FIRST CLASS [address] [place] [address] [place] [address] Assigned PCP 06/16/18 05/26/22 Kalyan Galvan Personal Advocate & Liaison (PAL) 08/08/19 04/26/21 Lashae Trevino, [facility] [address] [place] [address] [place] [phone] Pharmacist Pharmacist 10/14/19 12/01/20 Eduardo Sharma MD [address] [place] [address] Assigned Sleep Provider 04/02/2005/[address] [place] [address] [facility] 300 [place], [place] 80126337 Assigned Musculoskeletal Provider 04/02/20 08/24/20 Marcelo Artis PA-C [address]45[address] [facility] 300 [place], [place] 58313337 Assigned Musculoskeletal Provider 08/25/20 08/20/21 Rodrigo Man PA-C [address] [place] 450 [place] [address] Assigned Surgical Provider 08/25/20 11/27/20 Noreen Flores APRN WAITER/WAITRESS FIRST CLASS 3305 [facility] [place] [address] Assigned PCP 08/05/22 03/16/23 Agatha Null DPM, Podiatry/Foot and Ankle Surgery [address] [place] [address] [place] [address] Assigned Musculoskeletal Provider 11/04/22 [facility] - [facility] [employer] 3305 [facility] [place] [address] Assigned PCP 07/05/23 documented as of this encounter
--- OUTSIDE RECORDS SUMMARY | 2023-10-18 09:52 | XMS_ITS | Encounter Summary ---
Author Name Unknown Organization [place] Address [address] [place] [address] Care Team Providers Care Wrapper Layer Name Role Phone Selma Good APRN PROFESSOR OF PHYSICAL EDUCATION Primary Care Pro vider Vanda Guerrero MD Primary Care Provider [phone] Vanda Guerrero MD Unavailable [phone] Jeana-JdNoreen castro APRN, CNP Unavailable Jeana-JdNoreen castro APRN, CNP Unavailable Jeana-JdNoreen castro APRN PROFESSOR OF PHYSICAL EDUCATION Primary Car e Provider Kalyan Galvan Unavailable Unavailable Lashae Trevino [facility] Unavailable [phone] Eduardo Sharma MD Unavailable Rios Monteiro MD Unavailable [phone] Marcelo Artis-Aleyda Unavailable [phone] Rodrigo Man-C Unavailable [phone] Jeana-JdNoreen castro APRN PROFESSOR OF PHYSICAL EDUCATION Unavailable Sudha Greene NP Primary Care Provider Agatha NullM, Podiatry /Foot and Ankle Surgery Unavailable [facility] Unavailable Reason for Visit * Reason Onset Date Comments Medication Question 11/23/2011 topamax Encounter Details Date Type Department Care Team (Late st Contact Info) Description 11/23/2011 [facility] [address] [place] [address] [place] [phone] Selma Good APRN PROFESSOR OF PHYSICAL EDUCATION 3305 [facility] [place] [address] Medication Question (topamax) Social History Tobacco Use [...] as of this encounter Care Teams Wrapper Layer Relationship Specialty Start Date End Date Selma Good APRN PROFESSOR OF PHYSICAL EDUCATION [address] [place] [address] [place] [address] PCP - General 04/09/08 04/07/15 Vanda Guerrero MD [address] [place] [address] [place] [address] PCP - General Internal Medicine 04/08/15 01/08/19 Vanda Guerrero MD [address] [place] [address] [place] [address] PCP - Assigned PCP 07/24/16 06/15/18 Noreen Flores APRN PROFESSOR OF PHYSICAL EDUCATION [address] [place] [address] [place] [address] PCP - Assigned PCP 06/16/18 08/13/18 Noreen Flores APRN PROFESSOR OF PHYSICAL EDUCATION [address] [place] [address] [place] [address] PCP - General Nurse Practitioner 01/09/19 12/12/21 Sudha Greene NP [address] [address] PCP - General 11/01/22 Noreen Flores APRN PROFESSOR OF PHYSICAL EDUCATION [address] [place] [address] [place] [address] Assigned PCP 06/16/18 05/26/22 Kalyan Galvan Personal Advocate & Liaison (PAL) 08/08/19 04/26/21 [facility] [address] [place] [address] [place] [address] Pharmacist Pharmacist 10/14/19 12/01/20 Eduardo Sharma MD [address] [address] Assigned Sleep Provider 04/02/2005/07 Rios Monteiro MD [address] [place] [address] Assigned Musculoskeletal Provider 04/02/20 08/24/20 Marcelo Artis, PA-C 120[address] [facility] [address] [place] [address] Assigned Musculoskeletal Provider 08/25/20 08/20/21 Rodrigo Man PA-C [address] [place] [facility] 450 [place] [address] Assigned Surgical Provider 08/25/20 11/27/20 Noreen Flores APRN PROFESSOR OF PHYSICAL EDUCATION 3305 [facility] [place] [address] Assigned PCP 08/05/22 03/16/23 Agatha Null DPM, Podiatry/Foot and Ankle Surgery 40[address] [facility] [address] [place] [address] Assigned Musculoskeletal Provider 11/04/22 [facility] - [facility] 3305 [facility] DAV[place] [phone] Assigned PCP 07/05/23 documented as of this encounter
--- OUTSIDE RECORDS SUMMARY | 2023-10-18 09:52 | XMS_ITS | Encounter Summary ---
Author Name Unknown Organization [place] Address [address] [place] [address] Care Team Providers Care Gender Studies Professor Name Role Phone Selma Good APRN MOTION PICTURE CAMERA LENS TECHNICIAN Primary Care Pro vider Vanda Guerrero MD Primary Care Provider [phone] Vanda Guerrero MD Unavailable [phone] Jeana-JdNoreen castro APRN, CNP Unavailable Jeana-JdNoreen castro APRN, CNP Unavailable Jeana-JdNoreen castro APRN MOTION PICTURE CAMERA LENS TECHNICIAN Primary Car e Provider Kalyan Galvan Unavailable Unavailable Lashae Trevino [facility] Unavailable [phone] Eduardo Sharma MD Unavailable Rios Monteiro MD Unavailable [phone] Marcelo Artis PA-C Unavailable [phone] Rodrigo Man PA-C Unavailable [phone] Jeana-JdNoreen castro APRN MOTION PICTURE CAMERA LENS TECHNICIAN Unavailable Sudha Greene NP Primary Care Provider Agatha NullM, Podiatry /Foot and Ankle Surgery Unavailable [facility] Unavailable Encounter Details Date Type Department Care Team (Late st Contact Info) Description 04/24/2011 [facility] Medical Advice [place] 078010 [facility] [place] [phone] Alejo Casas Social History [...] documented as of this encounter Care Teams Gender Studies Professor Relationship Specialty Start Date End Date Selma Good APRN MOTION PICTURE CAMERA LENS TECHNICIAN [address] [place] [address] [place] [address] PCP - General 04/09/08 04/07/15 Vanda Guerrero MD [address] [place] [address] [place] [address] PCP - General Internal Medicine 04/08/15 01/08/19 Vanda Guerrero MD [address] [place] [address] [place] [address] PCP - Assigned PCP 07/24/16 06/15/18 Noreen Flores APRN MOTION PICTURE CAMERA LENS TECHNICIAN [address] [place] [address] [place] [address] PCP - Assigned PCP 06/16/18 08/13/18 Noreen Flores APRN MOTION PICTURE CAMERA LENS TECHNICIAN [address] [facility] [place] [address] PCP - General Nurse Practitioner 01/09/19 12/12/21 Sudha Greene NP [address] [address] PCP - General 11/01/22 Noreen Flores APRN MOTION PICTURE CAMERA LENS TECHNICIAN [address] [place] [address] [place] [address] Assigned PCP 06/16/18 05/26/22 Kalyan Galvan Personal Advocate & Liaison (PAL) 08/08/19 04/26/21 [facility] [address] [place] [address] [place] [address] Pharmacist Pharmacist 10/14/19 12/01/20 Eduardo Sharma MD [address] [place] [address] Assigned Sleep Provider 04/02/2005/07 [place] [address] [facility] [address] [place] [address] Assigned Musculoskeletal Provider 04/02/20 08/24/20 Marcelo Artis PA-C [address] [facility] [address] [place] [address] Assigned Musculoskeletal Provider 08/25/20 08/20/21 Rodrigo Man PA-C [address] [place] [address] Assigned Surgical Provider 08/25/20 11/27/20 Noreen Flores APRN MOTION PICTURE CAMERA LENS TECHNICIAN 3305 [facility] [place] [address] Assigned PCP 08/05/22 03/16/23 Agatha Null DPM, Podiatry/Foot and Ankle Surgery [address] [place] [id number] Assigned Musculoskeletal Provider 11/04/22 [facility] [address] [facility] [address] [place] [address] Assigned PCP 07/05/23 documented as of this encounter
--- OUTSIDE RECORDS SUMMARY | 2023-10-18 09:52 | XMS_ITS | Encounter Summary ---
Author Name Unknown Organization [place] Address [address] [place] [address] Care Team Providers Care Paint Department Supervisor Name Role Phone Selma Good APRN SOCIAL MEDIA JOB TITLES Primary Care Pro vider Vanda Guerrero MD Primary Care Provider [phone] Vanda Guerrero MD Unavailable [phone] Jeana-JdNoreen castro APRN, CNP Unavailable Jeana-JdNoreen castro APRN, CNP Unavailable Jeana-JdNoreen castro APRN SOCIAL MEDIA JOB TITLES Primary Car e Provider Kalyan Galvan Unavailable Unavailable Lashae Trevino [facility] Unavailable [phone] Eduardo Sharma MD Unavailable Rios Monteiro MD Unavailable [phone] Marcelo Artis PA-C Unavailable [phone] Rodrigo Man PA-C Unavailable [phone] Jeana-JdNoreen castro APRN SOCIAL MEDIA JOB TITLES Unavailable Sudha Greene NP Primary Care Provider Agatha NullM, Podiatry /Foot and Ankle Surgery Unavailable [facility] Unavailable Encounter Details Date Type Department Care Team (Late st Contact Info) Description 05/21/2013 [facility] Medical Advice [address] [place] [address] Alejo Casas Social History [...] as of this encounter Care Teams Paint Department Supervisor Relationship Specialty Start Date End Date Selma Good APRN SOCIAL MEDIA JOB TITLES [address] [facility] [place] [address] PCP - General 04/09/08 04/07/15 Vanda Guerrero MD [address] [place] [address] [place] [address] PCP - General Internal Medicine 04/08/15 01/08/19 Vanda Guerrero MD [address] [place] [address] [place] [address] PCP - Assigned PCP 07/24/16 06/15/18 Noreen Flores APRN SOCIAL MEDIA JOB TITLES [facility] [place] [address] PCP - Assigned PCP 06/16/18 08/13/18 Noreen Flores APRN SOCIAL MEDIA JOB TITLES [address] [place] [address] [place] [address] PCP - General Nurse Practitioner 01/09/19 12/12/21 Sudha Greene NP [address] [address] PCP - General 11/01/22 Noreen Flores APRN SOCIAL MEDIA JOB TITLES [address] [place] [address] [place] [address] Assigned PCP 06/16/18 05/26/22 Kalyan Galvan Personal Advocate & Liaison (PAL) 08/08/19 04/26/21 [facility] [address] [place] [address] [place] [address] Pharmacist Pharmacist 10/14/19 12/01/20 Eduardo Sharma MD [address] [address] Assigned Sleep Provider 04/02/2005/07 [place] [id number] [place] [address] 300 [place] [address] Assigned Musculoskeletal Provider 04/02/20 08/24/20 Marcelo Artis PA-C [address] [facility] [address] [place] [address] Assigned Musculoskeletal Provider 08/25/20 08/20/21 Rodrigo Man PA-C [address] [place] [address] Assigned Surgical Provider 08/25/20 11/27/20 Noreen Flores APRN SOCIAL MEDIA JOB TITLES 3305 [facility] [place] [address] Assigned PCP 08/05/22 03/16/23 Agatha Null DPM, Podiatry/Foot and Ankle Surgery [address] [place] [address] Assigned Musculoskeletal Provider 11/04/22 Clinic - [place] [place] 3305 [facility] [place] [address] Assigned PCP 07/05/23 documented as of this encounter
--- OUTSIDE RECORDS SUMMARY | 2023-10-18 09:52 | XMS_ITS | Encounter Summary ---
Author Name Unknown Organization [place] Address [address] [place] [address] Care Team Providers Care Secretary Name Role Phone Selma Good APRN QUALITY IMPROVEMENT CONSULTANT Primary Care Pro vider Vanda Guerrero MD Primary Care Provider [phone] Vanda Guerrero MD Unavailable [phone] Jeana-JdNoreen castro APRN, CNP Unavailable Jeana-JdNoreen castro APRN, CNP Unavailable Jeana-JdNoreen castro APRN QUALITY IMPROVEMENT CONSULTANT Primary Car e Provider Kalyan Galvan Unavailable Unavailable Lashae Trevino [facility] Unavailable [phone] Eduardo Sharma MD Unavailable Rios Monteiro MD Unavailable [phone] Marcelo Artis PA-C Unavailable [phone] Rodrigo Man PA-C Unavailable [phone] Jeana-JdNoreen castro APRN QUALITY IMPROVEMENT CONSULTANT Unavailable Sudha Greene NP Primary Care Provider Agatha NullM, Podiatry /Foot and Ankle Surgery Unavailable [facility] Unavailable Encounter Details Date Type Department Care Team (Late st Contact Info) Description 01/11/2010 [facility] Medical Advice [place] [address]24[address] [facility] [place] [phone] Alejo Casas Social [...] Secretary Relationship Specialty Start Date End Date Selma Good APRN QUALITY IMPROVEMENT CONSULTANT [address] [place] [address] [place] [address] PCP - General 04/09/08 04/07/15 Vanda Guerrero MD [address] [place] [address] [place] [address] PCP - General Internal Medicine 04/08/15 01/08/19 Vanda Guerrero MD [address] [place] [address] [place] [address] PCP - Assigned PCP 07/24/16 06/15/18 Noreen Flores APRN QUALITY IMPROVEMENT CONSULTANT [address] [place] [address] [place] [address] PCP - Assigned PCP 06/16/18 08/13/18 Noreen Flores APRN QUALITY IMPROVEMENT CONSULTANT 3305 [facility] [place] [address] PCP - General Nurse Practitioner 01/09/19 12/12/21 Sudha Greene NP [address] [address] PCP - General 11/01/22 Noreen Flores APRN QUALITY IMPROVEMENT CONSULTANT [address] [place] [address] [place] [address] Assigned PCP 06/16/18 05/26/22 Kalyan Galvan Personal Advocate & Liaison (PAL) 08/08/19 04/26/21 [facility] [address] [place] [address] [place] [address] Pharmacist Pharmacist 10/14/19 12/01/20 Eduardo Sharma MD [address] [place] [address] Assigned Sleep Provider 04/02/2005/07 [place] [address] [facility] [address] [place] [address] Assigned Musculoskeletal Provider 04/02/20 08/24/20 Marcelo Artis PA-C [address] [facility] [address] [place] [address] Assigned Musculoskeletal Provider 08/25/20 08/20/21 Rodrigo Man PA-C [address] [place] [address] Assigned Surgical Provider 08/25/20 11/27/20 Noreen Flores APRN QUALITY IMPROVEMENT CONSULTANT 3305 [facility] [place] [address] Assigned PCP 08/05/22 03/16/23 Agatha Null DPM, Podiatry/Foot and Ankle Surgery [address] [place] [id number] Assigned Musculoskeletal Provider 11/04/22 [facility] [address] [facility] [address] [place] [address] Assigned PCP 07/05/23 documented as of this encounter
--- OUTSIDE RECORDS SUMMARY | 2023-10-18 09:52 | XMS_ITS | Encounter Summary ---
Author Name Unknown Organization [place] Address [address] [place] [address] Care Team Providers Care Plate Stacker Hand Name Role Phone Selma Good APRN ORACLE ADF DEVELOPER Primary Care Pro vider Vanda Guerrero MD Primary Care Provider [phone] Vanda Guerrero MD Unavailable [phone] Jeana-JdNoreen castro APRN, CNP Unavailable Jeana-JdNoreen castro APRN, CNP Unavailable Jeana-JdNoreen castro APRN ORACLE ADF DEVELOPER Primary Car e Provider Kalyan Galvan Unavailable Unavailable Lashae Trevino [facility] Unavailable [phone] Eduardo Sharma MD Unavailable Rios Monteiro MD Unavailable [phone] Marcelo Artis-Aleyda Unavailable [phone] Rodrigo Man-C Unavailable [phone] Jeana-JdNoreen castro APRN ORACLE ADF DEVELOPER Unavailable Sudha Greene NP Primary Care Provider Agatha NullM, Podiatry /Foot and Ankle Surgery Unavailable [facility] Unavailable Reason for Visit * Reason Onset Date Comments Orders 01/17/2010 mammo and U/Ss Encounter Details Date Type Department Care Team (Late st Contact Info) Description 01/17/2010 [facility] [address] [place] [address] [place] [phone] Selma Good APRN ORACLE ADF DEVELOPER [address]305 [facility] [place] [address] Orders (mammo and U/Ss) Social History Tobacco [...] as of this encounter Care Teams Plate Stacker Hand Relationship Specialty Start Date End Date Selma Good, SEAN ORACLE ADF DEVELOPER [address] [place] [address] [place] [address] PCP - General 04/09/08 04/07/15 Vanda Guerrero MD [address] [place] [address] [place] [address] PCP - General Internal Medicine 04/08/15 01/08/19 Vanda Guerrero MD [address] [place] [address] [place] [address] PCP - Assigned PCP 07/24/16 06/15/18 Noreen Flores APRN ORACLE ADF DEVELOPER [address] [place] [address] [place] [address] PCP - Assigned PCP 06/16/18 08/13/18 Noreen Flores APRN ORACLE ADF DEVELOPER [address] [place] [address] [place] [address] PCP - General Nurse Practitioner 01/09/19 12/12/21 Sudha Greene NP [address] [address] PCP - General 11/01/22 Noreen Flores APRN ORACLE ADF DEVELOPER [address] [place] [address] [place] [address] Assigned PCP 06/16/18 05/26/22 Kalyan Galvan Personal Advocate & Liaison (PAL) 08/08/19 04/26/21 [facility] [address] [place] [address] [place] [address] Pharmacist Pharmacist 10/14/19 12/01/20 Eduardo Sharma MD [address] [address] Assigned Sleep Provider 04/02/2005/07 Rios Monterio MD [address] [place] [address] Assigned Musculoskeletal Provider 04/02/20 08/24/20 Marcelo Artis, PA-C [address] [place] [address] [place] [address] Assigned Musculoskeletal Provider 08/25/20 08/20/21 Rodrigo Man PA-C [address] [facility] [address] [place] [address] Assigned Surgical Provider 08/25/20 11/27/20 Noreen Flores APRN ORACLE ADF DEVELOPER 3305 [facility] [place] [address] Assigned PCP 08/05/22 03/16/23 Agatha Null DPM, Podiatry/Foot and Ankle Surgery [address] [facility] 300 [place] [address] Assigned Musculoskeletal Provider 11/04/22 Clinic - [place] [place] [facility] [address] [facility] [address] [place] [id number] Assigned PCP 07/05/23 documented as of this encounter
--- OUTSIDE RECORDS SUMMARY | 2023-10-18 09:52 | XMS_ITS | Encounter Summary ---
Author Name Unknown Organization [place] Address [address] [place] [address] Care Team Providers Care Forge Heater Name Role Phone Selma Good APRN DIE STORAGE CLERK Primary Care Pro vider Vanda Guerrero MD Primary Care Provider [phone] Vanda Guerrero MD Unavailable [phone] Jeana-JdNoreen castro APRN, CNP Unavailable Jeana-JdNoreen castro APRN, CNP Unavailable Jeana-JdNoreen castro APRN DIE STORAGE CLERK Primary Car e Provider Kalyan Galvan Unavailable Unavailable Lashae Trevino [facility] Unavailable [phone] Eduardo Sharma MD Unavailable Rios Monteiro MD Unavailable [phone] Marcelo Artis PA-C Unavailable [phone] Rodrigo Man PA-C Unavailable [phone] Jeana-JdNoreen castro APRN DIE STORAGE CLERK Unavailable Sudha Greene NP Primary Care Provider Agatha NullM, Podiatry /Foot and Ankle Surgery Unavailable [facility] Unavailable Encounter Details Date Type Department Care Team (Late st Contact Info) Description 12/14/[address] [facility] Medical Advice [place] [id number] [facility] [place] [phone] Alejo Casas Social [...] as of this encounter Care Teams Forge Heater Relationship Specialty Start Date End Date Selma Good APRN DIE STORAGE CLERK [address] [place] [address] [place] [address] PCP - General 04/09/08 04/07/15 Vanda Guerrero MD [address] [place] [address] [place] [address] PCP - General Internal Medicine 04/08/15 01/08/19 Vanda Guerrero MD [address] [place] [address] [place] [address] PCP - Assigned PCP 07/24/16 06/15/18 Noreen Flores APRN DIE STORAGE CLERK [address] [place] [address] [place] [address] PCP - Assigned PCP 06/16/18 08/13/18 Noreen Flores APRN DIE STORAGE CLERK [address] [facility] [place] [address] PCP - General Nurse Practitioner 01/09/19 12/12/21 Sudha Greene NP [address] [address] PCP - General 11/01/22 Noreen Flores APRN DIE STORAGE CLERK [address] [place] [address] [place] [address] Assigned PCP 06/16/18 05/26/22 Kalyan Galvan Personal Advocate & Liaison (PAL) 08/08/19 04/26/21 [facility] [address] [place] [address] [place] [address] Pharmacist Pharmacist 10/14/19 12/01/20 Eduardo Sharma MD [address] [place] [address] Assigned Sleep Provider 04/02/2005/07 [place] [address] [facility] [address] [place] [address] Assigned Musculoskeletal Provider 04/02/20 08/24/20 Marcelo Artis PA-C [address] [facility] [address] [place] [address] Assigned Musculoskeletal Provider 08/25/20 08/20/21 Rodrigo Man PA-C [address] [place] [address] Assigned Surgical Provider 08/25/20 11/27/20 Noreen Flores APRN DIE STORAGE CLERK [address] [facility] [place] [address] Assigned PCP 08/05/22 03/16/23 Agatha Null DPM, Podiatry/Foot and Ankle Surgery [address] [place] [address]307 Assigned Musculoskeletal Provider 11/04/22 [facility] [address] [facility] [address] [place] [address] Assigned PCP 07/05/23 documented as of this encounter
--- OUTSIDE RECORDS SUMMARY | 2023-10-18 09:52 | XMS_ITS | Encounter Summary ---
Author Name Unknown Organization [place] Address [address] [place] [address] Care Team Providers Care Supervisor Mattress And Boxsprings Name Role Phone Selma Good APRN INTERACTIVE MULTIMEDIA DESIGNER Primary Care Pro vider Vanda Guerrero MD Primary Care Provider [phone] Vanda Guerrero MD Unavailable [phone] Jeana-JdNoreen castro APRN, CNP Unavailable Jeana-JdNoreen castro APRN, CNP Unavailable Jeana-JdNoreen castro APRN INTERACTIVE MULTIMEDIA DESIGNER Primary Car e Provider Kalyan Galvan Unavailable Unavailable Lashae Trevino [facility] Unavailable [phone] Eduardo Sharma MD Unavailable Rios Monteiro MD Unavailable [phone] Marcelo Artis PA-C Unavailable [phone] Rodrigo Man PA-C Unavailable [phone] Jeana-JdNoreen castro APRN INTERACTIVE MULTIMEDIA DESIGNER Unavailable Sudha Greene NP Primary Care Provider [phone] Agatha NullM, Podiatry /Foot and Ankle Surgery Unavailable [facility] Unavailable Encounter Details Date Type Department Care Team (Late st Contact Info) Description 07/21/2010 [facility] [place] [phone] Selma Good APRN INTERACTIVE MULTIMEDIA DESIGNER [address] [place] [address] [place] [address] Social History Tobacco Use Types Packs/Day Years [...] as of this encounter Care Teams Supervisor Mattress And Boxsprings Relationship Specialty Start Date End Date Selma Good APRN INTERACTIVE MULTIMEDIA DESIGNER [address] [place] [address] [place] [address] PCP - General 04/09/08 04/07/15 Vanda Guerrero MD [address] [place] [address] [place] [address] PCP - General Internal Medicine 04/08/15 01/08/19 Vanda Guerrero MD [address] [place] [address] [place] [address] PCP - Assigned PCP 07/24/16 06/15/18 Noreen Flores APRN INTERACTIVE MULTIMEDIA DESIGNER [address] [place] [address] [place] [address] PCP - Assigned PCP 06/16/18 08/13/18 Noreen Flores APRN INTERACTIVE MULTIMEDIA DESIGNER [address] [place] [address] [place] [address] PCP - General Nurse Practitioner 01/09/19 12/12/21 Sudha Greene NP [address] [address] PCP - General 11/01/22 Noreen Flores APRN INTERACTIVE MULTIMEDIA DESIGNER [address] [place] [address] [place] [address] Assigned PCP 06/16/18 05/26/22 Kalyan Galvan Personal Advocate & Liaison (PAL) 08/08/19 04/26/21 [facility] [address] [place] [address] [place] [phone] Pharmacist Pharmacist 10/14/19 12/01/20 Eduardo Sharma MD 6363 [facility] 103 [place] [address] Assigned Sleep Provider 04/02/2005/07 [place] [address] [place] [address] Assigned Musculoskeletal Provider 04/02/20 08/24/20 Marcelo Artis PARejiC [address] [place] [address] Assigned Musculoskeletal Provider 08/25/20 08/20/21 Rodrigo Man PA-C [address] [place] [address] Assigned Surgical Provider 08/25/20 11/27/20 Noreen Flores APRN INTERACTIVE MULTIMEDIA DESIGNER [address] [facility] [place] [address] Assigned PCP 08/05/22 03/16/23 Agatha Null DPM, Podiatry/Foot and Ankle Surgery [address] [place] [address] Assigned Musculoskeletal Provider 11/04/22 [facility] [address] [facility] [place] [address] Assigned PCP 07/05/23 documented as of this encounter
--- OUTSIDE RECORDS SUMMARY | 2023-10-18 09:52 | XMS_ITS | Encounter Summary ---
Author Name Unknown Organization [facility] Address [address] [place] [address] Care Team Providers Care Splitter Operator Name Role Phone Selma Good APRN MAIL CARRIERS SUPERVISOR Primary Care Pro vider Vanda Guerrero MD Primary Care Provider [phone] Vanda Guerrero MD Unavailable [phone] Jeana-JdNoreen castro APRN, CNP Unavailable Jeana-JdNoreen castro APRN, CNP Unavailable Jeana-JdNoreen castro APRN MAIL CARRIERS SUPERVISOR Primary Car e Provider Kalyan Galvan Unavailable Unavailable Lashae Trevino [facility] Unavailable [phone] Eduardo Sharma MD Unavailable Rios Monteiro MD Unavailable [phone] Marcelo Artis PA-C Unavailable [phone] Rodrigo Man PA-C Unavailable [phone] Jeana-JdNoreen castro APRN MAIL CARRIERS SUPERVISOR Unavailable Sudha Greene NP Primary Care Provider Agatha NullM, Podiatry /Foot and Ankle Surgery Unavailable [facility] Unavailable Encounter Details Date Type Department Care Team (Late st Contact Info) Description 07/12/2012 [facility] [place] [phone] Selma Good APRN MAIL CARRIERS SUPERVISOR [address] [place] [address] [place] [address] Social History Tobacco Use Types Packs/Day Years [...] documented as of this encounter Care Teams Splitter Operator Relationship Specialty Start Date End Date Selma Good APRN MAIL CARRIERS SUPERVISOR [address] [place] [address] [place] [address] PCP - General 04/09/08 04/07/15 Vanda Guerrero MD [address] [place] [address] [place] [address] PCP - General Internal Medicine 04/08/15 01/08/19 Vanda Guerrero MD [address] [place] [address] [place] [address] PCP - Assigned PCP 07/24/16 06/15/18 Noreen Flores APRN MAIL CARRIERS SUPERVISOR [address] [place] [address] [place] [address] PCP - Assigned PCP 06/16/18 08/13/18 Noreen Flores APRN MAIL CARRIERS SUPERVISOR [address] [place] [address] [place] [address] PCP - General Nurse Practitioner 01/09/19 12/12/21 Sudha Greene, MAURICIO [address] [address] PCP - General 11/01/22 Noreen Flores APRN MAIL CARRIERS SUPERVISOR [address] [place] [address] [place] [address] Assigned PCP 06/16/18 05/26/22 Kalyan Galvan Personal Advocate & Liaison (PAL) 08/08/19 04/26/21 [facility] [address] [place] [address] [place] [phone] Pharmacist Pharmacist 10/14/19 12/01/20 Eduardo Sharma MD [address] [facility] 103 [place] [address] Assigned Sleep Provider 04/02/2005/07 [place] [address] [place] [address] [place] [address] Assigned Musculoskeletal Provider 04/02/20 08/24/20 Marcelo Artis, PA-C [address] [place] [address] [place] [address] Assigned Musculoskeletal Provider 08/25/20 08/20/21 Rodrigo Man PA-C [address] [place] 450 [place] [address] Assigned Surgical Provider 08/25/20 11/27/20 Noreen Flores APRN MAIL CARRIERS SUPERVISOR [address] [facility] [place] [address] Assigned PCP 08/05/22 03/16/23 Agatha Null DPM, Podiatry/Foot and Ankle Surgery [address] [place] [address] [place] [address] Assigned Musculoskeletal Provider 11/04/22 Clinic - [facility] 3305 [facility] [place] [address] Assigned PCP 07/05/23 documented as of this encounter
--- OUTSIDE RECORDS SUMMARY | 2023-10-18 09:52 | XMS_ITS | Encounter Summary ---
Author Name Unknown Organization [facility] Address [address] [place] [address] Care Team Providers Care Acetylene Torch Burner Name Role Phone Selma Good APRN LOCAL DELIVERY TRUCK DRIVER Primary Care Pro vider Vanda Guerrero MD Primary Care Provider [phone] Vanda Guerrero MD Unavailable [phone] Jeana-JdNoreen castro APRN, CNP Unavailable Jeana-JdNoreen castro APRN, CNP Unavailable Jeana-JdNoreen castro APRN LOCAL DELIVERY TRUCK DRIVER Primary Car e Provider Kalyan Galvan Unavailable Unavailable Lashae Trevino [facility] Unavailable [phone] Eduardo Sharma MD Unavailable Rios Monteiro MD Unavailable [phone] Marcelo Artis-Aleyda Unavailable [phone] Rodrigo Man-C Unavailable [phone] Jeana-JdNoreen castro APRN LOCAL DELIVERY TRUCK DRIVER Unavailable Sudha Greene NP Primary Care Provider Agatha NullM, Podiatry /Foot and Ankle Surgery Unavailable [facility] Unavailable Reason for Visit * Reason Onset Date Comments Vaginal Problem 05/24/2011 itchy -worse wit h cream Encounter Details Date Type Department Care Team (Late st Contact Info) Description 05/24/2011 MyC Medical Advice [address] [place] [phone] Selma Good, OIL DEVELOPER LOCAL DELIVERY TRUCK DRIVER [address]305 [facility] [place] [address] Vaginal Problem (itchy -worse with cream ) [...] documented as of this encounter Care Teams Acetylene Torch Burner Relationship Specialty Start Date End Date Selma Good, OIL DEVELOPER LOCAL DELIVERY TRUCK DRIVER [address] [place] [address] [place] [address] PCP - General 04/09/08 04/07/15 Vanda Guerrero MD [address] [place] [address] [place] [address] PCP - General Internal Medicine 04/08/15 01/08/19 Vanda Guerrero MD [address] [place] [address] [place] [address] PCP - Assigned PCP 07/24/16 06/15/18 Noreen Flores APRN LOCAL DELIVERY TRUCK DRIVER 3305 [facility] [place] [address] PCP - Assigned PCP 06/16/18 08/13/18 Noreen Flores APRN LOCAL DELIVERY TRUCK DRIVER [address] [place] [address] [place] [address] PCP - General Nurse Practitioner 01/09/19 12/12/21 Sudha Greene NP [address] [address] PCP - General 11/01/22 Noreen Flores APRN LOCAL DELIVERY TRUCK DRIVER [address] [place] [address] [place] [address] Assigned PCP 06/16/18 05/26/22 Kalyan Galvan Personal Advocate & Liaison (PAL) 08/08/19 04/26/21 [facility] [address] [place] [address] [place] [address] Pharmacist Pharmacist 10/14/19 12/01/20 Eduardo Sharma MD 6363 [facility] 103 [place] [address] Assigned Sleep Provider 04/02/2005/07 [place] [address] [facility] 300 [place] [address] Assigned Musculoskeletal Provider 04/02/20 08/24/20 Marcelo Artis PA-C 57[address] [facility] 300 [place] [address] Assigned Musculoskeletal Provider 08/25/20 08/20/21 Rodrigo Man PA-C [address] [facility] [address] [place] [address] Assigned Surgical Provider 08/25/20 11/27/20 Noreen Flores APRN LOCAL DELIVERY TRUCK DRIVER 3305 [facility] [place] [id number] Assigned PCP 08/05/22 03/16/23 Agatha Null DPM, Podiatry/Foot and Ankle Surgery 45[address] [facility] 300 [place] [address] Assigned Musculoskeletal Provider 11/04/22 [facility] 3305 [facility] [place] [id number] Assigned PCP 07/05/23 documented as of this encounter
--- OUTSIDE RECORDS SUMMARY | 2023-10-18 09:52 | XMS_ITS | Encounter Summary ---
Author Name Unknown Organization [facility] Address [address] [place] [address] Care Team Providers Care Labeling Strategist Name Role Phone Selma Good APRN SOLAR SALES REPRESENTATIVE AND ASSESSOR Primary Care Pro vider Vanda Guerrero MD Primary Care Provider [phone] Vanda Guerrero MD Unavailable [phone] Jeana-JdNoreen castro APRN, CNP Unavailable Jeana-JdNoreen castro APRN, CNP Unavailable Jeana-JdNoreen castro APRN SOLAR SALES REPRESENTATIVE AND ASSESSOR Primary Car e Provider Kalyan Galvan Unavailable Unavailable Lashae Trevino [facility] Unavailable [phone] Eduardo Sharma MD Unavailable Rios Monteiro MD Unavailable [phone] Marcelo Artis-Aleyda Unavailable [phone] Rodrigo Man-C Unavailable [phone] Jeana-JdNoreen castro APRN SOLAR SALES REPRESENTATIVE AND ASSESSOR Unavailable Sudha Greene NP Primary Care Provider Agatha NullM, Podiatry /Foot and Ankle Surgery Unavailable [facility] Unavailable Reason for Visit * Reason Onset Date Comments Patient Request 01/26/2010 Encounter Details Date Type Department Care Team (Late st Contact Info) Description 01/26/2010 [facility] [address] [place] [address] [place] [id number] Selma Good APRN SOLAR SALES REPRESENTATIVE AND ASSESSOR 3305 [facility] [place] [address] Patient Request Social History Tobacco Use Types [...] documented as of this encounter Care Teams Labeling Strategist Relationship Specialty Start Date End Date Selma Good, SEAN SOLAR SALES REPRESENTATIVE AND ASSESSOR [address] [place] [address] [place] [address] PCP - General 04/09/08 04/07/15 Vanda Guerrero MD [address] [place] [address] [place] [address] PCP - General Internal Medicine 04/08/15 01/08/19 Vanda Guerrero MD [address] [place] [address] [place] [address] PCP - Assigned PCP 07/24/16 06/15/18 Noreen Flores APRN SOLAR SALES REPRESENTATIVE AND ASSESSOR [address] [place] [address] [place] [address] PCP - Assigned PCP 06/16/18 08/13/18 Noreen Flores APRN SOLAR SALES REPRESENTATIVE AND ASSESSOR [address] [place] [address] [place] [address] PCP - General Nurse Practitioner 01/09/19 12/12/21 Sudha Greene NP [address] [address] PCP - General 11/01/22 Noreen Flores APRN SOLAR SALES REPRESENTATIVE AND ASSESSOR [address] [place] [address] [place] [address] Assigned PCP 06/16/18 05/26/22 Kalyan Galvan Personal Advocate & Liaison (PAL) 08/08/19 04/26/21 Lashae Trevino, [facility] 1440 [facility] [place] [address] Pharmacist Pharmacist 10/14/19 12/01/20 Eduardo Sharma MD [address] [facility] 103 [place] [address] Assigned Sleep Provider 04/02/2005/07 [place] [address] [facility] 300 [place] [address] Assigned Musculoskeletal Provider 04/02/20 08/24/20 Marcelo Artis, PA-C [address] [facility] 300 [place] [address] Assigned Musculoskeletal Provider 08/25/20 08/20/21 Rodrigo Man PA-C [address] [facility] [address] [place] [address] Assigned Surgical Provider 08/25/20 11/27/20 Noreen Flores APRN SOLAR SALES REPRESENTATIVE AND ASSESSOR 3305 [facility] DAV[place] [id number] Assigned PCP 08/05/22 03/16/23 Agatha Null DPM, Podiatry/Foot and Ankle Surgery [address] [facility] 300 [place] [address] Assigned Musculoskeletal Provider 11/04/22 [facility] 3305 [facility] [place] [phone] Assigned PCP 07/05/23 documented as of this encounter
--- OUTSIDE RECORDS SUMMARY | 2023-10-18 09:52 | XMS_ITS | Encounter Summary ---
Author Name Unknown Organization [facility] Address [address] [place] [address] Care Team Providers Care Topographical Surveyor Name Role Phone Selma Good APRN SALES INCENTIVE ANALYST Primary Care Pro vider Vanda Guerrero MD Primary Care Provider [phone] Vanda Guerrero MD Unavailable [phone] Jeana-JdNoreen castro APRN, CNP Unavailable Jeana-JdNoreen castro APRN, CNP Unavailable Jeana-JdNoreen castro APRN SALES INCENTIVE ANALYST Primary Car e Provider Kalyan Galvan Unavailable Unavailable Lashae Trevino [facility] Unavailable [phone] Eduardo Sharma MD Unavailable Rios Monteiro MD Unavailable [phone] Marcelo Artis-Aleyda Unavailable [phone] Rodrigo Man-C Unavailable [phone] Jeana-JdNoreen castro APRN SALES INCENTIVE ANALYST Unavailable Sudha Greene NP Primary Care Provider Agatha NullM, Podiatry /Foot and Ankle Surgery Unavailable [facility] Unavailable Reason for Visit * Reason Onset Date Comments Appointment 08/10/2010 next diabetes? Encounter Details Date Type Department Care Team (Late st Contact Info) Description 08/10/2010 MyC Medical Advice [facility]an [address] [place] [address] [place] [phone] Selma Good APRN SALES INCENTIVE ANALYST [facility]5 [facility] [place] [address] Appointment (next diabetes? ) Social History Tobacco [...] documented as of this encounter Care Teams Topographical Surveyor Relationship Specialty Start Date End Date Selma Good APRN SALES INCENTIVE ANALYST [address] [place] [address] [place] [address] PCP - General 04/09/08 04/07/15 Vanda Guerrero MD [address] [place] [address] [place] [address] PCP - General Internal Medicine 04/08/15 01/08/19 Vanda Guerrero MD [address] [place] [address] [place] [address] PCP - Assigned PCP 07/24/16 06/15/18 Noreen Flores APRN SALES INCENTIVE ANALYST [address] [place] [address] [place] [address] PCP - Assigned PCP 06/16/18 08/13/18 Noreen Flores APRN SALES INCENTIVE ANALYST [address] [place] [address] [place] [address] PCP - General Nurse Practitioner 01/09/19 12/12/21 Sudha Greene NP [address] [address] PCP - General 11/01/22 Noreen Flores APRN SALES INCENTIVE ANALYST [address] [place] [address] [place] [address] Assigned PCP 06/16/18 05/26/22 Kalyan Galvan Personal Advocate & Liaison (PAL) 08/08/19 04/26/21 [facility] DAV[place] [phone] Pharmacist Pharmacist 10/14/19 12/01/20 Eduardo Sharma MD [address] [place] [address] Assigned Sleep Provider 04/02/2005/07 Rios Monteiro MD [address] [place] [address] [id number] Assigned Musculoskeletal Provider 04/02/20 08/24/20 Marcelo Artis, PA-C [id number] [place] [address] 300 [place] [address] Assigned Musculoskeletal Provider 08/25/20 08/20/21 Rodrigo Mna PA-C [address] [place] [address] [place] [address] Assigned Surgical Provider 08/25/20 11/27/20 Noreen Flores APRN SALES INCENTIVE ANALYST 3305 [facility] [place] [address] Assigned PCP 08/05/22 03/16/23 Agatha Null DPM, Podiatry/Foot and Ankle Surgery [address] [place] [address] [place] [address] Assigned Musculoskeletal Provider 11/04/22 Clinic - Nita Pring[facility] [address] [facility] [address] [place] [id number] Assigned PCP 07/05/23 documented as of this encounter
--- OUTSIDE RECORDS SUMMARY | 2023-10-18 09:53 | XMS_ITS | Encounter Summary ---
Author Name Unknown Organization [facility] Address [address] [place] [address] Care Team Providers Care Street Vendor Name Role Phone Selma Good APRN V BELT FINISHER Primary Care Pro vider Vanda Guerrero MD Primary Care Provider [phone] Vanda Guerrero MD Unavailable [phone] Jeana-JdNoreen castro APRN, CNP Unavailable Jeana-JdNoreen castro APRN, CNP Unavailable Jeana-JdNoreen castro APRN V BELT FINISHER Primary Car e Provider Kalyan Galvan Unavailable Unavailable Lashae Trevino [facility] Unavailable [phone] Eduardo Sharma MD Unavailable Rios Monteiro MD Unavailable [phone] Marcelo Artis-Aleyda Unavailable [phone] Rodrigo Man-C Unavailable [phone] Jeana-JdNoreen castro APRN V BELT FINISHER Unavailable Sudha Greene NP Primary Care Provider Agatha NullM, Podiatry /Foot and Ankle Surgery Unavailable [facility] Unavailable Reason for Referral * Referral not Required - Closed Specialty Diagnoses / Procedures Referred By Rylie t Referred To Contact Diagnoses Migraine headaches Selma Good APRN V BELT FINISHER [address] [facility] [place] [address] [facility] 4225 [place] [address] Referral ID Status Reason Start Date Expiration Date Visits Re quested Visits Authorized [id number] Closed 09/18/2008 06/10/2011 1 1 Comments Coverage of these services is subject to the terms and limitations of your health insurance plan. Please call member services at your health plan with any benefit or coverage questions. [facility] referral to [facility] at [phone]. . Any CT, MRI or procedures ordered by your specialist must be performed at a [facility] facility OR coordinated by your clinic's referral office at [phone]. If X-rays, CTs or MRIs have been performed, please contact the facility where they were done, to arrange for warehouse order picker prior to your scheduled appointment. Please bring this referral request to your appointment and present it to your specialist. Reason for Visit * Reason Onset Date Comments Medication Request 09/17/2008 migraine med Encounter Details Date Type Department Care Team (Late st Contact Info) Description 09/17/2008 [facility] Medical Advice [facility] [address] [facility] [place] [phone] Selma Good, SEAN V BELT FINISHER [address] [facility] [place] [address] Medication Request (migraine med) Social History Tobacco [...] sent to patient with phone number for [facility]. Ivette Allan M.A. * Telephone Encounter - Selma Good - 09/18/2008 8:18 AM CDT It appears in my note from when I saw her, I recommended referral to neuro, which she declined at that time. It appears im[facility]rex 'knocked her out.' I would recommend [facility]. documented in this encounter Plan of Treatment Not on file documented as of this encounter Procedures Procedure Name Priority Date/Time Associated Diagnosis Comments [facility] CONSULT NEUROLOGY Routine 11/15/2010 Migraine headaches documented in this encounter Results * CONSULT NEUROLOGY (11/15/2010) Selma Good FUTURES TRADER V BELT FINISHER REFERRAL documented in this encounter Visit Diagnoses Diagnosis Migraine headaches- Primary Migraine, unspecified, without mention of intractable migraine without mention of status migrainosus documented in this encounter Additional Health Concerns Infection Onset Date Last Indicated Resolved Time Rule Out COVID-19 08/25/2020 08/25/2020 08/26/2020 3:23 PM CDT Rule Out COVID-19 11/26/2022 11/26/2022 11/27/2022 3:38 PM CDT documented as of this encounter Care Teams Street Vendor Relationship Specialty Start Date End Date Selma Good FUTURES TRADER V BELT FINISHER 3305 [facility] [place] [address] PCP - General 04/09/08 04/07/15 Vanda Guerrero MD 3305 [facility] [place] [address] PCP - General Internal Medicine 04/08/15 01/08/19 Vanda Guerrero MD [address] [place] [address] [place] [address] PCP - Assigned PCP 07/24/16 06/15/18 Noreen Flores APRN V BELT FINISHER [address] [place] [address] [place] [address] PCP - Assigned PCP 06/16/18 08/13/18 Noreen Flores APRN V BELT FINISHER [address] [place] [address] [place] [address] PCP - General Nurse Practitioner 01/09/19 12/12/21 Sudha Greene, MAURICIO [address] [address] PCP - General 11/01/22 Noreen Flores APRN V BELT FINISHER [address] [place] [address] [place] [address] Assigned PCP 06/16/18 05/26/22 Kalyan Galvan Personal Advocate & Liaison (PAL) 08/08/19 04/26/21 Lashae Trevino, [facility] 1440 [facility] [place] [address] Pharmacist Pharmacist 10/14/19 12/01/20 Eduardo Sharma MD [address] [place] [address] [place] [address] Assigned Sleep Provider 04/02/2005/07 [place] [address] [place] [address] Assigned Musculoskeletal Provider 04/02/20 08/24/20 Marcelo Artis PA-C [address] [facility] [address] [place] [address] Assigned Musculoskeletal Provider 08/25/20 08/20/21 Rodrigo Man PA-C [address] [facility] [address] [place] [address] Assigned Surgical Provider 08/25/20 11/27/20 Noreen Flores APRN V BELT FINISHER [address] [place] [address] [place] [address] Assigned PCP 08/05/22 03/16/23 Agatha Null DPM, Podiatry/Foot and Ankle Surgery [address] [place] [address] [facility] 300 [place] [address] Assigned Musculoskeletal Provider 11/04/22 [facility] [place]le [facility] 3305 [facility] DAVID PR[place] [id number] Assigned PCP 07/05/23 documented as of this encounter
--- OUTSIDE RECORDS SUMMARY | 2023-10-18 09:53 | XMS_ITS | Clinical Summary ---
Author Name Unknown Organization [facility] Address [address] [place] [address] Care Team Providers Care Healthcare Management Name Role Phone Unassigned, Provider Primary Care Provider Unava ilable Source Comments You are receiving this document as you are listed as the primary care provider,follow-up provider, or the patient has been referred to you for consultation.This is in compliance with the Medicare and[facility] Hospital[facility] EHR Incentive Program,which states Providers who transition their patient to another setting of careor provider of care or refers their patient to another provider of care shouldprovide summary care record for each transition of care or referral. [facility] Allergies Active Allergy Reactions Criticality Noted Date [...] 03/09/2011,04/08/2010, 8 Influenza IIV4 (Quadrivalent ) 0.5mL (06228) 06/12/2017,03/23/2016,04/08/2015, 013 PPSV23 (Pneumovax) 10/06/2014 Pfizer Monovalent [...] Comments Blood Pressure 120/62 05/25/2021 11:09 AM SCENE SHIFTER Pulse 59 05/25/2021 11:09 AM SCENE SHIFTER Temperature 36.7 ??C (98.1 ??F) 05/25/2021 1 1:09 AM SCENE SHIFTER Respiratory Rate 16 08/23/2007 1:13 PM CDT Oxygen Saturation 97% 08/23/2007 1:13 PM CDT Inhaled Oxygen Concentration - - Weight 78.8 kg (173 lb 12.8 oz) 021 11:09 AM SCENE SHIFTER Height 160 cm (5' 3) 08/23/2007 1:13 [...] Vaccine ( season) 2023 09/24/2020, 09/03/2020 Influenza (Season Ended) 2024 018, 03/23/2016, 04/08/2015, Additional history exists DTaP/Tdap/Td (2 [...] this topic Medical Devices Implanted Type Area Die Set Up Worker Device Identifier Shelf Expiration Date Model / Serial / Lot Kit Infuse Bone Graft Sm - [id number] Implanted:Qty : 1 on 04/15/2007 at [facility] Left: BACK [employer] [id number] / / [id number] Bone Canc Crushed 60cc - [id number] Implanted:Qty : 1 on 04/15/2007 at [facility] Left: BACK [place] 609[address] / OTS [id number] / Device Cage Ray Thrd 12x26 - [id number] Implanted:Qty : 2 on 04/15/2007 at [facility] DEVICE Left: BACK [place] 7-1226 / / [id number] Cage Ray [id number] - [id number] Implanted:Qty : 1 on 04/15/2007 at [facility] Left: BACK [place] 05/11/2008 7-1426 / / [id number] Procedures Procedure Name Priority Date/Time Associated Diagnosis [...] CDT) Cholesterol 188 <200 mg/dl [facility] Triglyceride 95 <200 mg/dl [facility] HDL 46 >35 mg/dl [facility] LDL, Calc. 123 mg/dl [facility] Hours Fasting 12 hours [facility] 10/07/2005 8:33 AM CDT 10/07/2005 8:34 AM CDT Yun Flynn MD LAB_1 Performing Organization Address City/State/[facility] Phone Number [facility] [address] [place] [phone] * PAP TEST, ROUTINE (10/02/2005 12:00 AM CDT) Cytology, Pap (NOTE) [employer] Cytology Report Patient Name: PADMINI CHOI Taken: [...] and less commonly, endometrial/uterin e abnormalities. ? [facility]/10/13/2005 Electronically Signed Out By ? Kelly Elmore MD ([id number]) Rakel Valle, ??CT (ASCP) ?Pap Smear History ?Date of Last Menstrual Period: ? 09/22/05 ?Contraceptive History: ?Not Stated/Unknown ?Other Clinical Conditions: ?LAST PAP: N/A HPV reflex testing requested with interpretation of ASCUS ? [facility] 10/02/2005 10/06/2005 9:5 8 AM CDT Yun Flynn MD LAB_1 [place], [place] [phone] * MAMMOGRAM, SCREENING (05/15/2003) Anatomical Region Laterality Modality Breast Other Narrative Transcriptions Dusty Gonsalves - 05/15/2003 12:00 AM CSTCLINICAL DATA: Screening. EXAMINATION: Bilateral mammogram, 05/15/03. ACR BIRADS CATEGORY 1 - NEGATIVE MAMMOGRAM. FINDINGS: Nothing for malignancy. Dutsy Gonsalves MD 10:42 A cc: AUDREY Moffett Radiology SP Blank Perez HOUSE MOVER SUPERVISOR, LUMBER STRAIGHTENER RAD_BI from Last 3 Months or Most Recently Relevant to Health Maintenance Advance Directives * Full Code (Latest Code Status on File) Date Activated Date Inactivated Comments 04/15/2007 8:03 AM 04/19/2007 8:53 PM Care Teams Healthcare Management Relationship Specialty Start Date End Date Unassigned, Provider [address] [place] [address] PCP - General 09/18/08
--- OUTSIDE RECORDS SUMMARY | 2023-10-18 09:53 | XMS_ITS | Encounter Summary ---
Author Name Unknown Organization [facility] Address [address] [place] [address] Care Team Providers Care Cross Country Truck Driver Name Role Phone Selma Good APRN NEON SIGN INSTALLER Primary Care Pro vider Vanda Guerrero MD Primary Care Provider [phone] Vanda Guerrero MD Unavailable [phone] Jeana-JdNoreen castro APRN, CNP Unavailable Jeana-JdNoreen castro APRN, CNP Unavailable Jeana-JdNoreen castro APRN NEON SIGN INSTALLER Primary Car e Provider Kalyan Galvan Unavailable Unavailable Lashae Trevino [facility] Unavailable [phone] Eduardo Sharma MD Unavailable Rios Monteiro MD Unavailable [phone] Marcelo Artis PA-C Unavailable [phone] Rodrigo Man PA-C Unavailable [phone] Jeana-JdNoreen castro APRN NEON SIGN INSTALLER Unavailable Sudha Greene NP Primary Care Provider Agatha NullM, Podiatry /Foot and Ankle Surgery Unavailable [facility] Unavailable Encounter Details Date Type Department [...] as of this encounter Care Teams Cross Country Truck Driver Relationship Specialty Start Date End Date Selma Good APRN NEON SIGN INSTALLER [address] [place] [address] [place] [address] PCP - General 04/09/08 04/07/15 Vanda Guerrero MD [address] [place] [address] [place] [address] PCP - General Internal Medicine 04/08/15 01/08/19 Vanda Guerrero MD [address] [place] [address] [place] [address] PCP - Assigned PCP 07/24/16 06/15/18 Noreen Flores APRN NEON SIGN INSTALLER [address] [place] [address] [place] [address] PCP - Assigned PCP 06/16/18 08/13/18 Noreen Flores APRN NEON SIGN INSTALLER [address] [place] [address] [place] [address] PCP - General Nurse Practitioner 01/09/19 12/12/21 Sudha Greene NP [address] [address] PCP - General 11/01/22 Noreen Flores APRN NEON SIGN INSTALLER [address] [facility] [place] [address] Assigned PCP 06/16/18 05/26/22 Kalyan Galvan Personal Advocate & Liaison (PAL) 08/08/19 04/26/21 Lashae Trevino, [facility] [address] [facility] [place] [address] Pharmacist Pharmacist 10/14/19 12/01/20 Eduardo Sharma MD [address] [place] [id number] Assigned Sleep Provider 04/02/2005/07 [place] [address] [facility] [address] [place] [address] Assigned Musculoskeletal Provider 04/02/20 08/24/20 Marcelo Artis PA-C [address] [place] [address] Assigned Musculoskeletal Provider 08/25/20 08/20/21 Rodrigo Man PA-C [address] [place] [place] [address] Assigned Surgical Provider 08/25/20 11/27/20 Noreen Flores APRN NEON SIGN INSTALLER [address] [facility] [place] [address] Assigned PCP 08/05/22 03/16/23 Agatha Null DPM, Podiatry/Foot and Ankle Surgery [address] [place] [address] Assigned Musculoskeletal Provider 11/04/22 Clinic - [facility] [address] [facility] [place] [id number] Assigned PCP 07/05/23 documented as of this encounter
--- OUTSIDE RECORDS SUMMARY | 2023-10-18 09:53 | XMS_ITS | Encounter Summary ---
Author Name Unknown Organization [facility] Address [address] [place] [address] Care Team Providers Care Inspector Barrel Name Role Phone Selma Good APRN SHIFT ENGINEER Primary Care Pro vider Vnada Guerrero MD Primary Care Provider [phone] Vanda Guerrero MD Unavailable [phone] Jeana-JdNoreen castro APRN, CNP Unavailable Jeana-JdNoreen castro APRN, CNP Unavailable Jeana-JdNoreen castro APRN SHIFT ENGINEER Primary Car e Provider Kalyan Galvan Unavailable Unavailable Lashae Trevino [facility] Unavailable [phone] Eduardo Sharma MD Unavailable Rios Monteiro MD Unavailable [phone] Marcelo Artis PA-C Unavailable [phone] Rodrigo Man PA-C Unavailable [phone] Jeana-JdNoreen castro APRN SHIFT ENGINEER Unavailable Sudha Greene NP Primary Care Provider Agatha NullM, Podiatry /Foot and Ankle Surgery Unavailable [facility] Unavailable Encounter [...] as of this encounter Care Teams Inspector Barrel Relationship Specialty Start Date End Date Selma Good APRN SHIFT ENGINEER [address] [place] [address] [place] [address] PCP - General 04/09/08 04/07/15 Vanda Guerrero MD [address] [place] [address] [place] [address] PCP - General Internal Medicine 04/08/15 01/08/19 Vanda Guerrero MD [address] [place] [address] [place] [address] PCP - Assigned PCP 07/24/16 06/15/18 Noreen Flores APRN SHIFT ENGINEER [address] [place] [address] [place] [address] PCP - Assigned PCP 06/16/18 08/13/18 Noreen Flores APRN SHIFT ENGINEER [facility] [place] [address] PCP - General Nurse Practitioner 01/09/19 12/12/21 Sudha Greene NP [address] [address] PCP - General 11/01/22 Noreen Flores APRN SHIFT ENGINEER [address] [facility] [place] [address] Assigned PCP 06/16/18 05/26/22 Kalyan Galvan Personal Advocate & Liaison (PAL) 08/08/19 04/26/21 Lashae Trevino [facility] [address] [place] [address] [place] [phone] Pharmacist Pharmacist 10/14/19 12/01/20 Eduardo Sharma MD [address] [place] [id number] Assigned Sleep Provider 04/02/2005/07 [place] [address] [facility] [address] [place] [address] Assigned Musculoskeletal Provider 04/02/20 08/24/20 Marcelo Artis PA-C [address] [facility] [address] [place] [address] Assigned Musculoskeletal Provider 08/25/20 08/20/21 Rodrigo Man PA-C [address] [place] [address] Assigned Surgical Provider 08/25/20 11/27/20 Noreen Flores APRN SHIFT ENGINEER [address] [facility] [place] [address] Assigned PCP 08/05/22 03/16/23 Agatha Null DPM, Podiatry/Foot and Ankle Surgery [address] [place] [address] Assigned Musculoskeletal Provider 11/04/22 [facility] [address] [facility] [place] [address] Assigned PCP 07/05/23 documented as of this encounter
--- OUTSIDE RECORDS SUMMARY | 2023-10-18 09:53 | XMS_ITS | Encounter Summary ---
Author Name Unknown Organization [facility] Address [address] [place] [address] Care Team Providers Care Yard Jockey Name Role Phone Selma Good APRN SUPERVISOR BLOOD [employer]OR RECRUITERS Primary Care Pro vider Vanda Guerrero MD Primary Care Provider [phone] Vanda Guerrero MD Unavailable [phone] Jeana-JdNoreen castro APRN, CNP Unavailable Jeana-JdNoreen castro APRN, CNP Unavailable Jeana-JdNoreen castro APRN SUPERVISOR BLOOD DONOR [employer]UITERS Primary Car e Provider Kalyan Galvan Unavailable Unavailable Lashae Trevino [facility] Unavailable [phone] Eduardo Sharma MD Unavailable Rios Monteiro MD Unavailable [phone] Marcelo Artis PA-C Unavailable [phone] Rodrigo Man PA-C Unavailable [phone] Jeana-JdNoreen castro APRN SUPERVISOR [employer]LO[employer]UIT[employer] Unavailable Sudha Greene NP Primary Care Provider Agatha NullM, Podiatry /Foot and Ankle Surgery Unavailable [facility] Unavailable Encounter Details Date Type [...] as of this encounter Care Teams Yard Jockey Relationship Specialty Start Date End Date Selma Good APRN SUPERVISOR BLO[employer] [address] [place] [address] [place] [address] PCP - General 04/09/08 04/07/15 Vanda Guerrero MD [address] [place] [address] [place] [address] PCP - General Internal Medicine 04/08/15 01/08/19 Vanda Guerrero MD [address] [place] [address] [place] [address] PCP - Assigned PCP 07/24/16 06/15/18 Noreen Flores APRN SUPERVISOR [employer] [address] [place] [address] [place] [address] PCP - Assigned PCP 06/16/18 08/13/18 Noreen Flores APRN SUPERVISOR [employer]LO[employer] [address] [place] [address] [place] [address] PCP - General Nurse Practitioner 01/09/19 12/12/21 Sudha Greene NP [address] [address] PCP - General 11/01/22 Noreen Flores APRN SUPERVISOR BLOOD [employer]UIT[employer] [address] [facility] [place] [address] Assigned PCP 06/16/18 05/26/22 Kalyan Galvan Personal Advocate & Liaison (PAL) 08/08/19 04/26/21 Lashae Trevino, [facility] [address] [facility] [place] [address] Pharmacist Pharmacist 10/14/19 12/01/20 Eduardo Sharma MD [address] [place] [id number] Assigned Sleep Provider 04/02/2005/07 [place] [address] [facility] [address] [place] [address] Assigned Musculoskeletal Provider 04/02/20 08/24/20 Marcelo Artis PA-C [address] [place] [address] Assigned Musculoskeletal Provider 08/25/20 08/20/21 Rodrigo Man PA-C [address] [place] [address] Assigned Surgical Provider 08/25/20 11/27/20 Noreen Flores APRN SUPERVISOR [employer]LOOD [employer] [address] [facility] [place] [address] Assigned PCP 08/05/22 03/16/23 Agatha Null DPM, Podiatry/Foot and Ankle Surgery [address] [place] [address] Assigned Musculoskeletal Provider 11/04/22 Clinic - [facility] [address] [facility] [place] [id number] Assigned PCP 07/05/23 documented as of this encounter
--- OUTSIDE RECORDS SUMMARY | 2023-10-18 09:53 | XMS_ITS | Encounter Summary ---
Author Name Unknown Organization [facility] Address [address] [place] [address] Care Team Providers Care Bookkeeping Assistant Name Role Phone Unassigned, Provider Primary Care Provider Unava ilable Encounter Details Date Type Department Care Team (Late st Contact Info) Description 08/23/2004 [facility] [address] [place] [address] Gavin Justice MD [address] [place] [address] [id number] Social History Tobacco Use Types Packs/Day Years [...] * Jerome Garg - 08/23/2004 12:00 AM RETAIL CLIENT MANAGER DATE OF SURGERY: August 23, 2004. STAFF [...] Justice MD Transcribed: 08/24/2004 07:37:56 Doc #: [id number] cc: Jose Colin, DO, Referring DO NOT SIGN UNLESS PRESENT FOR PROCEDURE I attest that I was present for and participated in the ma portions of this procedure(s) in compliance with the Health Care Financing Administration Teaching Physician Guidelines. Signed Date [facility] Staff Physician 1 Page 2 Patient Name: PADMINI CHOI Visit Date: 08/23/2004 OUTPATIENT OPERATIVE REPORT [facility] RECORD [address] [address] Page 1 Patient: PADMINI CHOI Location: PAIN N: [id number] Date of : 1965 Visit Date: 08/23/2004 OUTPATIENT OPERATIVE REPORT documented in this encounter Plan of Treatment Not on file documented as of this encounter Visit Diagnoses Not on filedocumented in this encounter Care Teams Bookkeeping Assistant Relationship Specialty Start Date End Date Unassigned, Provider [address] [place] [address] PCP - General 09/18/08 documented as of this encounter
--- OUTSIDE RECORDS SUMMARY | 2023-10-18 09:53 | XMS_ITS | Encounter Summary ---
Author Name Unknown Organization [facility] Address [address], [place] [address] Care Team Providers Care Ripper Operator Name Role Phone Unassigned, Provider Primary Care Provider Unava ilable Encounter Details Date Type Department Care Team (Latest Contact Info) Description 07/26/2004 [facility] Gavin Justice MD [address] [place] [address] Social History Tobacco Use Types Packs/Day Years [...] * Jerome Garg - 07/26/2004 12:00 AM LABORATORY SCIENTIST DATE OF SURGERY: 07/26/2004 STAFF SURGEON: Gavin [...] nerve impingement. Therefore, she is referred to [facility] pain clinic for evaluation for epidural steroid [...] Justice MD Transcribed: 07/26/2004 14:26:15 Doc #: [id number] cc: Jose Colin DO, Primary/Referring DO NOT SIGN UNLESS PRESENT FOR PROCEDURE I attest that I was present for and participated in the ma portions of this procedure(s) in compliance with the Health Care Financing Administration Teaching Physician Guidelines. Signed Date [facility]ions Staff Physician 1 Page 2 Patient Name: PADMINI CHOI Visit Date: 07/26/2004 OUTPATIENT OPERATIVE REPORT CONFIDENTIAL MEDICAL RECORD [facility] [address] [place] [address] Page 1 Patient: PADMINI CHOI [id number] Date of : 1965 Visit Date: 07/26/2004 OUTPATIENT OPERATIVE REPORT documented in this encounter Plan of Treatment Not on file documented as of this encounter Visit Diagnoses Not on filedocumented in this encounter Care Teams Ripper Operator Relationship Specialty Start Date End Date Unassigned, Provider [address] [place] [address] PCP - General 09/18/08 documented as of this encounter
--- NOTE | 2023-10-18 10:00 | CT_ITS ---
Patient: PADMINI WONG Facility:?[facility] Patient ID:?[id number] Site Patient ID:?[id number]. Site :?1965 Study:?CT-Abdomen WITHOUT-10/18/2023 10:35:34 AM Ordering Physician:?DR. MADRIGAL Final Report: NDICATION Adrenal nodule seen on CT dated 10/01/2023. TECHNIQUE Noncontrast CT of the abdomen. FINDINGS The adrenal nodule has a mean Hounsfield units of -0.44, compatible with an adrenal adenoma. Diffuse hepatic steatosis is also noted. No right adrenal adenoma. No gallbladder distention. No hydronephrosis or renal calculi seen. No peripancreatic fluid collection. No bowel distention. No new suspicious findings in the lung bases. The bones are stable. No abdominal aortic aneurysm. IMPRESSION The left adrenal gland nodule has features compatible with an adrenal adenoma. Diffuse hepatic steatosis. Balta Samayoa M.D. Interventional Radiology/Diagnostic Radiology (IR/) [employer] [facility] [email or web address] MARA/rex: D: 8:35 am DW/Dictated by: Balta Samayoa MD @ 10/19/2023 7:30:00 AM Signed by:?Balta Samayoa MD @10/19/2023 11:50:25 AM (Electronic Signature)
--- NOTE | 2023-10-18 10:45 | US_ITS ---
Patient: PADMINI WONG Facility:?[facility] R[facility] Patient ID:?[id number] Site Patient ID:?[id number]. Site :?1965 Study:?US-Abdomen RUQ-10/18/2023 10:54:37 AM Ordering Physician:PATRICIA MADRIGAL Final Report: INDICATION: Right upper quadrant abdominal pain. TECHNIQUE: Ultrasound abdomen limited. Sonographic images of the right upper quadrant were obtained using ireland-scale and color Doppler images. COMPARISON: 10/18/2023 and 10/01/2023 and 01/10/2022. FINDINGS: Liver: Diffusely increased hepatic parenchymal echogenicity compatible with steatosis. No focal liver lesion is identified given limitations of poor sonographic penetrability. The liver is normal in size measuring 15.8 cm in length. Main portal vein is patent with hepatopetal flow. Gallbladder: No stones or sludge. Normal wall thickness. No pericholecystic fluid. Negative sonographic Leyva`s sign. Common bile duct: Dilated measuring 8 mm. No intraluminal filling defect in the limited visualized portions. Pancreas: Visualized portions are unremarkable. Right kidney: Normal in size. Normal echotexture and cortex. There is a heterogeneous echogenic lesion within the lateral aspect of the right kidney measuring 1.2 x 1.0 x 0.8 cm. No discrete stone is seen within this region on today`s CT. There are 2 too small to characterize hypodensities involving the right kidney on recent contrast-enhanced CT from 10/01/2023, none of which are similar in size. Vasculature: Proximal abdominal aorta and IVC are unremarkable. IMPRESSION: 1. Hepatic steatosis. 2. Nonspecific common bile duct dilation measuring up to 8 mm. No intraluminal abnormality is identified on limited views. Recommend correlation with liver function tests and consider MRCP as clinically indicated. 3. Mildly heterogeneous 1.2 cm echogenic structure within the lateral aspect of the right kidney without discrete CT correlate. 6-12 month follow-up ultrasound is recommended to determine stability. Dictated by Ena Jiménez MD @ 10/19/2023 9:09:39 AM Signed by:?Ena Jiménez MD @10/19/2023 9:09:39 AM (Electronic Signature)
== END 2023-10-18 09:46 | disposition home or self-care (01) ==
LOC: CT 09:45
PROVIDERS: PCP Nurse Practitioner Family; Visit Provider Nurse Practitioner Family
DX: R10.11 Right upper quadrant pain; E27.8 Other specified disorders of adrenal gland; K76.0 Fatty (change of) liver, not elsewhere classified
CPT/HCPCS: 74150; 76705

== ENCOUNTER 2023-10-19 15:57 | Emergency (ER) | payer BC, SELFPAY ==
[2023-10-19 16:16] VITALS: BP 151/74; PULSE 79; RESP 18; TEMP 36.8; O2SAT 97; BMI 35.7
--- NOTE | 2023-10-19 16:17 | ED_ITS ---
HPI - General Adult General Time Seen by Provider: 16:17 Date Seen: 10/19/23 Chief complaint: Extremity Pain/Injury, Lower Stated complaint: right hip/leg pain Time Seen by Provider: 10/19/23 15:59 Source: patient and RN notes reviewed Mode of arrival: ambulatory Limitations: no limitations History of Present Illness HPI narrative: This patient is a 58-year-old female coming into the ER with pain going through her right hip buttock area down side of the leg to the knee. She has had 2 spinal fusion surgeries in the past per her report. She has had a history of sciatica. There is no acute trauma. No fevers chills. This has been progressive over about a month. She was given some Tylenol No. 3 from her primary care provider which did not help at all. She had some leftover oxycodone and tried that without any relief. She had Tylenol No. 3 at 10:00 a.m. this morning and 130 this afternoon. She states she is not supposed to take NSAIDs due to stomach issues. She is unsure of last imaging of her back, thinks it has been awhile. I did subsequently look in the records and she had x-rays an MRI done in October of 2022, just a year ago. Patient has no change in bowel or bladder, denies any numbness or tingling. She is just in pain. MRI of her lumbar spine from September of 2022 did show postoperative changes compatible with anterior/posterior L5-S1 fusion with solid bony fusion anteriorly. Findings appearing suggestive of left sacroiliac joint fusion. Interval development of minor discogenic degenerative changes at L2-3 resulting in no central canal or foraminal narrowing. Mild scattered degenerative changes of the lumbar spine as outlined above resulting in no significant central canal or foraminal narrowing. Related Data Home Medications Medication Instructions Recorded Confirmed inulin-sorbitol 2 gram chewable tab PO 01/23/22 09/25/23 tablet (Fiber Supplement (inulin)) trazodone .ROUTE HS 10/19/23 Previous Rx's Medication Instructions Recorded blood sugar diagnostic (Black Rhino GamesTouch #100 ea 07/20/22 Verio test strips) lancets 26 gauge (CarePeg Bandwidth Safety #100 ea 07/20/22 Lancets) lancets 33 gauge (OneTouch Delica #100 ea 07/24/22 Lancets) buspirone 10 mg tablet 10 mg PO BID #180 tabs 05/24/23 duloxetine 30 mg capsule,delayed 30 mg PO QDAY 90 days #90 caps 05/24/23 release duloxetine 60 mg capsule,delayed 60 mg PO QDAY #90 caps 05/24/23 release metformin 500 mg tablet 1,000 mg (2 x 500 mg) PO BID 90 05/24/23 days #360 tabs pantoprazole 40 mg tablet,delayed 40 mg PO BID 90 days #180 tabs 05/24/23 release simvastatin 20 mg tablet 20 mg PO QDAY 90 days #90 tabs 05/24/23 gabapentin 300 mg capsule 300 mg PO TID #360 caps 05/28/23 sumatriptan succinate 25 mg tablet 25 mg PO ONCE 30 days #10 tabs 06/25/23 escitalopram oxalate 10 mg tablet 10 mg PO QDAY #90 tabs 06/28/23 (Lexapro) cyanocobalamin (vitamin B-12) 1,000 mcg PO QDAY 90 days #90 tabs 08/28/23 1,000 mcg tablet (Vitamin B-12) acetaminophen 300 mg-codeine 30 mg 1 tab PO Q6H PRN pain #28 tabs 09/25/23 tablet prednisone 20 mg tablet 20 mg PO BID #10 tabs 10/19/23 tizanidine 4 mg tablet 4 mg PO Q8H PRN muscle spasticity 10/19/23 #15 tabs Allergies Allergy/AdvReac Type Severity Reaction Status Date / Time erythromycin base Allergy Intermediate Rash Verified 10/19/23 16:16 azithromycin Allergy Verified 10/19/23 16:16 Review of Systems Narrative: As per HPI. [facility] Medical History Low back pain ?M54.50 - Low back pain, unspecified (ICD-10) Right foot pain ?M79.671 - Pain in right foot (ICD-10) Right knee pain ?M25.561 - Pain in right knee (ICD-10) Severe sleep apnea (2020) ?G47.30 - Sleep apnea, unspecified (ICD-10) Type 2 diabetes mellitus ?E11.9 - Type 2 diabetes mellitus without complications (ICD-10) Positive antinuclear antibody ?R76.8 - Other specified abnormal immunological findings in serum (ICD-10) Obesity with body mass index (BMI) of 30.0 to 39.9 ?E66.9 - Obesity, unspecified (ICD-10) Nuclear cataract of both eyes Normal cardiac stress test (2016) Migraine headache ?G43.909 - Migraine, unspecified, not intractable, without status migrainosus (ICD-10) Insomnia ?G47.00 - Insomnia, unspecified (ICD-10) Hyperlipidemia ?E78.5 - Hyperlipidemia, unspecified (ICD-10) History of sacroiliac joint dysfunction (2006) ?Z87.39 - Personal history of other diseases of the musculoskeletal system and connective tissue (ICD-10) History of deep venous thrombosis (2000) ?Z86.718 - Personal history of other venous thrombosis and embolism (ICD-10) 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K21.9 - Gastro-esophageal reflux disease without esophagitis (ICD-10) Surgical History Status post tendon repair (2015) ?Z98.890 - Other specified postprocedural states (ICD-10) History of tonsillectomy and adenoidectomy (1972) ?Z90.89 - Acquired absence of other organs (ICD-10) History of fusion of lumbar spine (2004) ?Z98.1 - Arthrodesis status (ICD-10) History of section ?Z98.891 - History of uterine scar from previous surgery (ICD-10) History of cervical spinal arthrodesis (2000) ?Z98.1 - Arthrodesis status (ICD-10) Family History Mother Depression Diabetes Fibromyalgia Kidney disease Myocardial infarction, Onset Age: 70 Rheumatoid arthritis Sister Depression Lichen sclerosus Diabetes Daughter Depression Fibromyalgia Rheumatoid arthritis Father Diabetes Myocardial infarction, Onset Age: 50 Franco's esophagus Heart disease High blood pressure High cholesterol Alcohol dependence Brother Kidney disease Myocardial infarction, Onset Age: 50 Stroke, Onset Age: 40 Coagulation disorder Diabetes High blood pressure High cholesterol Heart disease Seizure Sister Depression Lichen sclerosus Diabetes High blood pressure High cholesterol Anxiety Paternal Grandmother Cervical cancer Heart disease High blood pressure High cholesterol Diabetes Social History Narrative: No formal exercise. Works for [employer] in [employer]. , 3 kids and 6 grandchildren. Non-smoker. Rarely consumes alcohol. No illicit drug use. Smoking Status: Never smoker Do you use any of these nicotine containing products: None Second hand tobacco smoke exposure: No How often do you have a drink containing alcohol: monthly or less How many standard drinks containing alcohol do you have on a typical day: 1 or 2 How often do you have six or more drinks on one occasion: Never AUDIT-C Alcohol total score: 1 Non-prescribed substance use: denies use Little interest or pleasure in doing things: more than half the days Feeling down, depressed, or hopeless: several days service: No Exam Const: Vital Signs, click to edit/add: Vital Signs - 24 hr 10/19/23 16:16 10/19/23 16:35 Temperature 98.2 F Pulse Rate [Pulse Oximeter] 79 73 Respiratory Rate 18 18 Blood Pressure [Ri ght Upper Arm] 151/74 H 122/53 L Pulse Oximetry 97 97 Oxygen Delivery Me thod Room Air Room Air Patient is a 58 year old female ambulatory into the ED of her own accord. She is lying in the bed in exam room 5 seeming uncomfortable. She is hanging onto her right buttock area at times. She can lift her leg off the bed but does cause some spasm in her low back. I can lift and maneuver her leg, no straight leg raise. Her feet/ankles show symmetric motor function that is 5/5. She has normal light touch sensation. She has no lower extremity edema. She has pain when ask her to roll to the side, she states she is feeling it in the buttock at that goes down the side of the leg to the knee. She has no midline tenderness of her spine, really no paraspinous tenderness. I cannot reproduce any pain palpating along her buttock. She has normal sensory examination by light touch of her lower extremities. Documenting provider has reviewed patient's vital signs: yes Course Course ED Course: Patient in I did discuss that I would review imaging results in her records, decide if we need to do any plain lumbar x-rays. We are going to try a dose of Toradol 30 mg IM for some initial pain management while she is here. This bypasses her stomach and she certainly can have a solitary dose of this. D iscussed with her that she is likely going to need prednisone for the anti- inflammatory affect, do believe this to be discogenic disease causing lumbar radiculopathy. She has no warning findings that would warrant emergent imaging. I will discuss with her that she had x-rays in lumbar MRI just about a year ago. Knowing this, would favor conservative management with attempt at medications and referral to physical therapy if she will consider this. She could follow up with outpatient MRI if clinically indicated if patient is not improving with conservative management. Reevaluation(s) Time of Reevaluation #1: 16:44 Reevaluation #1: Patient has received her Toradol, seems to already be helping her. She still has about 4 tablets of oxycodone at home and about 11 Tylenol No. 3 she thinks. She does have gabapentin which she takes for pain management for her fibromyalgia. She is on 300 mg 3 times a day. We certainly could have her go up to 600 mg up to 3 times a day for some acute pain management. We will get a prescription for prednisone and a muscle relaxant sent to her pharmacy. She declines physical therapy referral, states she went last year. I discussed with her that she is having new symptoms and should consider this, she will talk to her primary about this further and get a referral from her if she decides she wants to go. Vital Signs Vital signs: Initial Vital Signs Temperature 98.2 F 10/19/23 16:16 Temperature Source Temporal Artery Scan 10/19/23 16:16 Pulse Rate 79 10/19/23 16:16 Respiratory Rate 18 10/19/23 16:16 Blood Pressure 151/74 H 10/19/23 16:16 Blood Pressure Mean 99 10/19/23 16:16 Blood Pressure Position Semi-Fowlers 10/19/23 16:16 Pulse Oximetry 97 10/19/23 16:16 Oxygen Delivery Method Room Air 10/19/23 16:16 Vital Signs Temperature 98.2 F 10/19/23 16:16 Pulse Rate 79 10/19/23 16:16 Respiratory Rate 18 10/19/23 16:16 Blood Pressure 151/74 H 10/19/23 16:16 Pulse Oximetry 97 10/19/23 16:16 Oxygen Delivery Method Room Air 10/19/23 16:16 Temperature 98.2 F 10/19/23 16:16 Pulse Rate 73 10/19/23 16:35 Respiratory Rate 18 10/19/23 16:35 Blood Pressure 122/53 L 10/19/23 16:35 Pulse Oximetry 97 10/19/23 16:35 Oxygen Delivery Method Room Air 10/19/23 16:35 Medications Administered Medications: Discontinued Medications Generic Name Dose Route Start Last Admin Trade Name Freq PRN Reason Stop Dose Admin Ketorolac Tromethamine 30 mg 10/19/23 16:23 10/19/23 16:35 Ketorolac 30 Mg/Ml Inj IM 10/19/23 16:24 30 mg ONCE ONE Administration Critical Care Time Critical Care Time Critical Care Time: No Discharge Plan Discharge Clinical Impression: Acute lumbar radiculopathy Patient Disposition: Home, Self-Care Condition: Stable Instructions: Lumbar Radiculopathy (ED) Additional Instructions: Take prednisone as prescribed, need to take with food to protect your stomach. Can increase your gabapentin to 600 mg up to 3 times a day if needed. May need new prescription earlier which you can get through your primary care provider if you do increase the gabapentin. Not all 3 doses need to be increased, would start with the nightly 1 moving up to 600 mg 1st. Take the muscle relaxant per prescription if needed for muscle spasm. Can use the leftover oxycodone in Tylenol No. 3 per prescription if needed for more severe pain. Follow-up with your primary care provider next week. Do think you should consider physical therapy, your primary provider can send a referral through. Activity Level: Activity as Tolerated Prescriptions: New prednisone 20 mg tablet 20 mg PO BID Qty: 10 0RF tizanidine 4 mg tablet 4 mg PO Q8H PRN (Reason: muscle spasticity) Qty: 15 0RF No Action escitalopram oxalate [Lexapro] 10 mg tablet 10 mg PO QDAY Qty: 90 3RF acetaminophen-codeine 300-30 mg tablet 1 tab PO Q6H PRN (Reason: pain) Qty: 28 0RF Fiber Supplement (inulin) 2 gram tablet,chewable PO trazodone .ROUTE HS (DME) OneTouch Verio test strips Strip See Rx Instructions .Route Qty: 100 3RF Rx Instructions: tid (DME) lancets [CareTouch Safety Lancets] 26 gauge misc See Rx Instructions .Route Qty: 100 3RF Rx Instructions: tid (DME) lancets [OneTouch Delica Lancets] 33 gauge misc See Rx Instructions .Route Qty: 100 6RF Rx Instructions: tid buspirone 10 mg tablet 10 mg PO BID Qty: 180 3RF duloxetine 30 mg capsule,delayed release(DR/EC) 30 mg PO QDAY 90 Days Qty: 90 3RF duloxetine 60 mg capsule,delayed release(DR/EC) 60 mg PO QDAY Qty: 90 3RF metformin 500 mg tablet 1,000 mg PO BID 90 Days Qty: 360 2RF pantoprazole 40 mg tablet,delayed release (DR/EC) 40 mg PO BID 90 Days Qty: 180 3RF simvastatin 20 mg tablet 20 mg PO QDAY 90 Days Qty: 90 3RF gabapentin 300 mg capsule 300 mg PO TID Qty: 360 3RF Rx Instructions: Patient takes 1 am, 1 afternoon and 2 at bedtime sumatriptan succinate 25 mg tablet 25 mg PO ONCE 30 Days Qty: 10 12RF Rx Instructions: take one tablet on the onset of symptoms, may repeat in 2 hours if not effective cyanocobalamin (vitamin B-12) [Vitamin B-12] 1,000 mcg tablet 1,000 mcg PO QDAY 90 Days Qty: 90 3RF Follow Up/Referrals: Sudha Greene, BUILDING CUSTODIAL SUPERVISOR, BUSINESS BANKING RELATIONSHIP MANAGER [Primary Care Provider] - Stand Alone Forms: [facility]
--- OUTSIDE RECORDS SUMMARY | 2023-10-19 16:31 | XMS_ITS | Clinical Summary ---
Author Name Unknown Organization [facility] [place] Address [address] [place] [address] Care Team Providers Care Pony Ride Operator Name Role Phone Unavailable Primary Care Provider Unavailabl e Source Comments Patient records contain information from all sites at [facility]. For routine questions regarding patient records, call [phone] during business hours, M-F 8:00 AM - 5:00 PM Central Time. Record requests for emergency care only can be directed to [phone] at any time.[facility] Allergies Active Allergy Reactions Criticality Noted Date [...] TO DIRECT LDL Routine 08/08/2019 10:17 AM ENGRAVER OPTICAL FRAMES BI BREAST DIAGNOSTIC BILATERAL WITH TOMOSYNTHESIS Routine 09/30/2015 2:11 PM CDT from Last 3 Months or Most Recently Relevant to Health Maintenance
--- OUTSIDE RECORDS SUMMARY | 2023-10-19 16:31 | XMS_ITS | Clinical Summary ---
Author Name Unknown Organization [facility] Address [place], [place] [address] Care Team Providers Care Hand Cloth Examiner Name Role Phone Sudha Greene NP Primary Care Provider [phone] Allergies Active Allergy Reactions Criticality Noted Date [...] CDT Oxygen Saturation 97% 08/12/2020 6:13 PM GRANTS MANAGER Inhaled Oxygen Concentration - - Weight 79.4 [...] 16 Negative Negative 11/04/2021 10:35 AM CDT [facility] TYPE 18 Negative Negative 11/04/2021 10:35 AM CDT [facility] OTHER HIGH RISK TYPES Negative Negative 11/04/2021 10:35 AM CDT [facility] Tissue (Other) Client Collect / Unknown 10/14/2021 10:54 AM CDT 11/02/2021 5:19 PM CDT Narrative [facility] - 11/04/2021 10:35 AM CDT HPV types 16, 18, 31, 33, 35, 39, 45, 51, 52, 56, 58, 59, 66 and 68 DNA were undetectable or below the pre-set threshold. Methodology: Alaina Basilio 4800 HPV Test Doctor Unknown MICRO[facility]OLOGY [facility] [address] [place] [address], from Last 3 Months or Most Recently Relevant to Health Maintenance Care Teams Hand Cloth Examiner Relationship Specialty Start Date End Date Sudha Greene NP [address] [place] [address] DustinDAVID [id number] (work) PCP - General Emergency Medicine 03/27/22
--- OUTSIDE RECORDS SUMMARY | 2023-10-19 16:32 | XMS_ITS ---
Author Name Unknown Organization [facility] Address [address] [place] [address] Care Team Providers Care Code Enforcement Inspector Name Role Phone Unavailable Unavailable Unavailable Surgery Details Not on file Complications Check Surgery Details section. Procedure Estimated Blood Loss Check Surgery Details section. Procedure Findings Check Surgery Details section. Procedure Specimens Taken Check Surgery Details section.
--- OUTSIDE RECORDS SUMMARY | 2023-10-19 16:32 | XMS_ITS | Encounter Summary ---
Author Name Unknown Organization [facility] Address [address] [place] [address] Care Team Providers Care Phlebotomy Specialist Name Role Phone Noreen Flores APRN SPONGE CLIPPER Unavailable Noreen Flores APRN SPONGE CLIPPER Primary Car e Provider Kalyan Galvan Unavailable Unavailable Eduardo Sharma MD Unavailable Marcelo Artis PA-C Unavailable [phone] Noreen Flores APRN SPONGE CLIPPER Unavailable Sudha Greene NP Primary Care Provider Agatha NullM, Podiatry /Foot and Ankle Surgery Unavailable Clinic - [facility] Unavailable Reason for Visit * Reason Comments Medication Refill Encounter Details Date Type Department Care Team (Late st Contact Info) Description 01/06/2021 Refill [facility] [address] [place] [id number] Noreen Flores APRN SPONGE CLIPPER [address] [facility] [place] [id number] Medication Refill Social History Tobacco Use Types [...] documented as of this encounter Care Teams Phlebotomy Specialist Relationship Specialty Start Date End Date Noreen Flores APRN SPONGE CLIPPER [address] [place] [address] [place] [id number] PCP - General Nurse Practitioner 01/09/19 12/12/21 Sudha Greene NP [address] [address] PCP - General 11/01/22 Noreen Flores APRN SPONGE CLIPPER [address] [place] [address] [place] [id number] Assigned PCP 06/16/18 05/26/22 Kalyan Galvan Personal Advocate & Liaison (PAL) 08/08/19 04/26/21 Eduardo Sharma MD [address] [facility] [address] [place] [address] Assigned Sleep Provider 04/02/2005/07 Marcelo Artis PARejiC [address] [place] [address] [address] [place] [address] Assigned Musculoskeletal Provider 08/25/20 08/20/21 Noreen Flores APRN SPONGE CLIPPER [address] [place] [address] [place] [id number] Assigned PCP 08/05/22 03/16/23 Agatha Null, MARÍA, Podiatry/Foot and Ankle Surgery [address] [place] [address] Assigned Musculoskeletal Provider 11/04/22 [facility] [place] [address] [phone] Assigned PCP 07/05/23 documented as of this encounter
--- OUTSIDE RECORDS SUMMARY | 2023-10-19 16:32 | XMS_ITS | Referral Summary ---
Author Name Unknown Organization [facility] Address [address] [place] [address] Care Team Providers Care Jewel Cupping Machine Operator Name Role Phone Sudha Greene NP Primary Care Provider Agatha Null DPM, Podiatry /Foot and Ankle Surgery Unavailable [facility] Unavailable Allergies Active Allergy Reactions Criticality [...] sprayIndications:Al lergic rhinitis, unspecified seasonality, unspecified trigger [place] 1-2 sprays into both nostrils daily 16 [...] use. Address next visit Family history of [place] (myocardial infarction) 08/2007 Overview: At early age, father [place] at age 40 Resolved Problems Problem Noted [...] Answer Date Recorded PHQ-2 Score 0 11/10/2020 [facility] [place] of Occupat ional Health - Occupational Stress [...] Comments Blood Pressure 128/80 05/11/2023 1:07 PM HAIR SPINNING MACHINE OPERATOR Pulse 87 02/26/2023 3:58 PM CDT Temperature 36.2 ??C (97.2 ??F) 02/26/2023 3:58 PM CD T Respiratory Rate 12 02/26/2023 3:13 PM CDT Oxygen Saturation 95% 02/26/2023 4:00 PM CDT Inhaled Oxygen Concentration - - Weight 87.1 kg (192 lb) 05/11/2023 1:07 PM HAIR SPINNING MACHINE OPERATOR Height 156 cm (5' 1.42) 02/26/2023 11:19 AM CDT Body Mass Index 35.79 02/26/2023 11:19 AM CDT Plan of Treatment Not on file Procedures Procedure Name Priority Date/Time Associated Diagnosis Comments COMPREHENSIVE METABOLIC PANEL Routine 11/10/2020 2:29 PM CDT Polyarthralgia EYE EXAM - HIM SCAN 05/17/2020 1 2:00 AM HAIR SPINNING MACHINE OPERATOR HEMOGLOBIN A1C Routine 01/13/2020 8:55 AM CDT Type 2 diabetes mellitus with complication, without long-term current use of insulin (H) FECAL COLORECTAL CANCER SCREEN FIT Routine 01/12/2020 8:00 AM CDT Health care maintenance ALBUMIN RANDOM URINE QUANTITATIVE Routine 08/08/2019 10:17 AM HAIR SPINNING MACHINE OPERATOR Routine general medical examination at a health care facility LIPID REFLEX TO DIRECT LDL PANEL Routine 08/08/2019 10:17 AM HAIR SPINNING MACHINE OPERATOR Routine general medical examination at a health [...] TYPES DNA CERVICAL Routine 05/03/2016 12:17 PM HAIR SPINNING MACHINE OPERATOR Cervical cancer screening PAP IMAGED THIN LAYER SCREEN Routine 05/03/2016 12:00 AM HAIR SPINNING MACHINE OPERATOR Cervical cancer screening C FOOT EXAM Routine 10/06/2014 9:47 AM CDT Type 2 diabetes, HbA1C goal < 7% (H) from Last 3 Months or Most Recently Relevant to Health Maintenance Results * (ABNORMAL) Comprehensive metabolic panel (11/10/2020 2:29 PM CDT) Sodium 142 133 - 144 mmol/L 11/10/2020 7:51 PM CDT [facility] Potassium 4.0 3.4 - 5.3 mmol/L 11/10/2020 7:51 PM CDT [facility] Chloride 112(H) 94 - 109 mmol/L 11/10/2020 7:51 PM CDT [facility] Carbon Dioxide 27 20 - 32 mmol/L 11/10/2020 7:58 PM CDT [facility] Anion Gap 4 3 - 14 mmol/L 11/10/2020 7:58 PM CDT [facility] Glucose 96 70 - 99 mg/dL 11/10/2020 7:58 PM CDT [facility] Urea Nitrogen 14 7 - 30 mg/dL 11/10/2020 7:58 PM CDT [facility] Creatinine 0.74 0.52 - 1.04 mg/dL 11/10/2020 7:58 PM T [facility] GFR Estimate >90 >60 mL/min/{1 .73_m2} 11/10/2020 7:58 PM CDT [facility] Comment: Non GFR Calc Starting 05/28/2018, serum creatinine based estimated GFR (eGFR) will be calculated using the Chronic Kidney Disease Epidemiology Collaboration (CKD-EPI) equation. GFR Estimate If Black >90 >60 mL/min/{1 .73_m2} 11/10/2020 7:58 PM T [facility] Comment: GFR Calc Starting 05/28/2018, serum creatinine based estimated GFR (eGFR) will be calculated using the Chronic Kidney Disease Epidemiology Collaboration (CKD-EPI) equation. Calcium 9.3 8.5 - 10.1 mg/dL 11/10/2020 7:58 PM CDT [facility] Bilirubin Total 0.6 0.2 - 1.3 mg/dL 11/10/2020 8:01 PM CDT [facility] Albumin 3.6 3.4 - 5.0 g/dL 11/10/2020 8:01 PM CDT [facility] Protein Total 7.2 6.8 - 8.8 g/dL 11/10/2020 8:01 PM CDT [facility] Alkaline Phosphatase 143 40 - 150 U/L 11/10/2020 8:01 PM CDT [facility] ALT 23 0 - 50 U/L 11/10/2020 8:01 PM CDT [facility] AST 16 0 - 45 U/L 11/10/2020 8:01 PM CDT [facility] Blood 11/10/2020 2:29 PM CDT 11/10/2020 3:04 PM CDT Kavin Fitzgerald PA-C LAB - BLO OD ORDERABLES Performing Organization Address City/[facility]/ZIP Co de Phone Number [facility] [address] [place] [address] * EYE EXAM - HIM SCAN (05/17/2020 12:00 AM HAIR SPINNING MACHINE OPERATOR) RETINOPATHY NEGATIVE 05/17/2020 Narrative Lauren Posada - 05/17/2020 12:00 AM HAIR SPINNING MACHINE OPERATOR DIABETIC EYE EXAM [facility] Provider Outside OTHER * (ABNORMAL) A1C FUTURE 1yr (01/13/2020 8:55 AM CDT) Hemoglobin A1C 6.1(H) 0 - 5.6 % 01/13/2020 9:27 AM CDT [facility] Comment: Normal <5.7% Prediabetes 5.7-6.4% ??Diabetes 6.5% or higher - adopted from ADA consensus guidelines. Blood specimen (specimen) 01/13/2020 8:55 AM CDT 01/13/2020 8:56 AM CDT Noreen Flores APRN ORDNANCE KEEPER LAB - BLOOD ORDERABLES [facility] [address] [place] [address] * Fecal colorectal cancer screen (FIT) (01/12/2020 8:00 AM CDT) Occult Blood Scn FIT Negative NEG^Negati ve 01/18/2020 4:19 PM CDT [facility] Stool specimen (specimen) 01/12/2020 8:00 AM CDT 01/18/2020 1:16 PM CDT Noreen Flores APRN, CNP LAB - STOOLS ORDERABLES [facility] [address] [place] [address] * Albumin Random Urine Quantitative with Creat Ratio (08/08/2019 10:17 AM HAIR SPINNING MACHINE OPERATOR) Creatinine Urine 154 mg/dL 08/09/2019 1:54 PM HAIR SPINNING MACHINE OPERATOR [facility] Albumin Urine mg/L 11 mg/L 08/09/2019 1:59 PM HAIR SPINNING MACHINE OPERATOR [facility] Albumin Urine mg/g Cr 7.14 0 - 25 mg/g Cr 08/09/2019 1:59 PM HAIR SPINNING MACHINE OPERATOR [facility] Urine specimen (specimen) 08/08/2019 10:17 AM HAIR SPINNING MACHINE OPERATOR 08/08/2019 10:18 AM HAIR SPINNING MACHINE OPERATOR Noreen Flores APRN, CNP LAB - URINE ORDERABLES Performing Organization Address City/[facility]/ZIP Co de Phone Number [facility] [address] [place] [address] * (ABNORMAL) Lipid panel reflex to direct LDL Fasting (08/08/2019 10:17 AM HAIR SPINNING MACHINE OPERATOR) Cholesterol 180 <200 mg/dL 08/08/2019 7:47 PM HAIR SPINNING MACHINE OPERATOR [facility] Triglycerides 153(H) <150 mg/dL 08/08/2019 7:47 PM HAIR SPINNING MACHINE OPERATOR [facility] Comment: Borderline high: ??150-199 mg/dl [...] mg/dl Blood specimen (specimen) 08/08/2019 10:17 AM HAIR SPINNING MACHINE OPERATOR 08/08/2019 10:18 AM HAIR SPINNING MACHINE OPERATOR Noreen Flores APRN ORDNANCE KEEPER LAB - BLOOD ORDERABLES Performing Organization Address City/State/[facility] Co de Phone Number [facility] [address] [place] [address], [facility] [phone] * *MA Screening Digital Bilateral (09/03/2018 10:13 [...] - BLOOD ORDERABLES [facility] [address] * Hepatitis C Screen Reflex to HCV RNA Quant and Genotype (09/25/2016 2:30 PM CDT) Pathologist [facility] Hepatitis C Antibody Nonreactive Assay performance characteristics have not been established for newborns, infants, and children NR [facility] Blood specimen (specimen) 09/25/2016 2:30 PM CDT 09/26/2016 11:29 AM CDT Vanda Borja MD LAB - BLOOD ORDER ILDEFONSO [facility] [address] [place] [address] * HPV High Risk Types DNA Cervical (05/03/2016 12:17 PM HAIR SPINNING MACHINE OPERATOR) HPV 16 DNA Negative NEG UNIVERSIT Y [...] and its performance characteristics determined by the [facility], Molecular Diagnostics Laboratory. It has not been cleared or approved by the FDA. The laboratory is regulated under CLIA as qualified to perform high-complexity testing. This test is used for clinical purposes. It should not be regarded as investigational or for research. [facility] Specimen Description Cervical Cells [id number] [facility] Cervical Cells 05/03/2016 12 :17 PM HAIR SPINNING MACHINE OPERATOR 05/03/2016 12:20 PM HAIR SPINNING MACHINE OPERATOR Vanda Borja MD LAB - BLOOD ORDER ILDEFONSO [facility] [address] [place] [address] * Pap imaged thin layer screen with HPV - recommended age 30 - 65 years (select HPV order below) (05/03/2016 12:00 AM HAIR SPINNING MACHINE OPERATOR) PAP RAMSEY Wren Report Patient Name: MEGAN CHOI MR#: [id number] Specimen #: [id number] Collected: 05/03/2016 Received: 05/05/2016 Reported: 05/09/2016 08:26 [...] TARIQ Wick (ASCP) Processed and screened at [facility], [facility] CLINICAL HISTORY: LMP: 10/30/11 Post Menopausal, Previous normal pap Date of Last Pap: 10/06/14, Papanicolaou Test Limitations: ??Cervical cytology is a screening test with limited sensitivity; regular screening is critical for cancer prevention; Pap tests are primarily effective for the diagnosis/preventi on of squamous cell carcinoma, not adenocarcinomas or other cancers. TESTING LAB LOCATION: [address] ??[id number] COLLECTION SITE: Client: ??[facility] Location: EAFP (R) COPATH Cytologic material (specimen) 05/03/2016 05/05/2016 10:22 AM HAIR SPINNING MACHINE OPERATOR Vanda Borja MD LAB - OPTIME CLIN ICAL SPECIMEN COPATH from Last 3 Months or Most Recently Relevant to Health Maintenance Care Teams Jewel Cupping Machine Operator Relationship Specialty Start Date End Date Sudha Greene NP [facility] - [address] [address] PCP - General 11/01/22 Agatha Null, MARÍA, Podiatry/Foot and Ankle Surgery [address] [place] [address] Assigned Musculoskeletal Provider 11/04/22 [facility] [place] [address] [id number] Assigned PCP 07/05/23
--- OUTSIDE RECORDS SUMMARY | 2023-10-19 16:32 | XMS_ITS | Encounter Summary ---
Author Name Unknown Organization [facility] Address [address] [place] [address] Care Team Providers Care Juke Box Servicer Name Role Phone Noreen Flores APRN SECRETARY OF POLICE Unavailable Sudha Greene NP Primary Care Provider Agatha Null DPM, Podiatry /Foot and Ankle Surgery Unavailable [facility] Unavailable Reason for Visit * Reason Onset Date Comments Forms 02/02/2023 Encounter Details Date Type Department Care Team (Late st Contact Info) Description 02/02/2023 [facility] [address] [facility] [address] [place], [place] [address] Agatha Null DPM, Podiatry/Foot and Ankle Surgery [address] [place] [address] Forms Social History Tobacco Use [...] Recorded PHQ-2 Score 0 11/10/2020 [facility] of Occupat ional Health - Occupational Stress [...] documented as of this encounter Care Teams Juke Box Servicer Relationship Specialty Start Date End Date Sudha Greene NP [address] [address] PCP - General 11/01/22 Noreen Flores APRN CNP [address] [facility] [place] [address] Assigned PCP 08/05/22 03/16/23 Agatha Null DPM, Podiatry/Foot and Ankle Surgery [address] [place] [address] [place], [place] [address] [address] Assigned Musculoskeletal Provider 11/04/22 [facility] [place] [address] [facility] [place] [address] Assigned PCP 07/05/23 documented as of this encounter
--- OUTSIDE RECORDS SUMMARY | 2023-10-19 16:32 | XMS_ITS | Referral Summary ---
Author Name Unknown Organization [facility] Address [address] [place] [address] Care Team Providers Care Hardener Helper Name Role Phone Unavailable Primary Care Provider Unavailabl e Source Comments Patient records contain information from all sites at [facility]. For routine questions regarding patient records, call [phone] during business hours, M-F 8:00 AM - 5:00 PM Central Time. Record requests for emergency care only can be directed to [phone] at any time.[facility] Allergies Active Allergy Reactions Criticality Noted Date [...] TO DIRECT LDL Routine 08/08/2019 10:17 AM EMBROIDERY OPERATOR BI BREAST DIAGNOSTIC BILATERAL WITH TOMOSYNTHESIS Routine 09/30/2015 2:11 PM CDT from Last 3 Months or Most Recently Relevant to Health Maintenance [facility] [place] [address]
--- OUTSIDE RECORDS SUMMARY | 2023-10-19 16:32 | XMS_ITS | Encounter Summary ---
Author Name Unknown Organization [facility] Address [address] [place] [address] Care Team Providers Care Workforce Development Specialist Name Role Phone Noreen Flores APRN CABBAGE SALTER Unavailable Noreen Flores APRN CABBAGE SALTER Primary Car e Provider Kalyan Galvan Unavailable Unavailable Eduardo Sharma MD Unavailable Marcelo Artis PA-C Unavailable Noreen Flores APRN CABBAGE SALTER Unavailable Sudha Greene NP Primary Care Provider Agatha NullM, Podiatry /Foot and Ankle Surgery Unavailable [facility] [place] [place] Unavailable Encounter Details Date Type Department Care Team (Late st Contact Info) Description 02/28/2021 My[facility] Medical Advice [facility] [address] [facility] [address] [place] [address] Lainey Wells Social History Tobacco [...] Answer Date Recorded PHQ-2 Score 0 11/10/2020 [facility] of Occupat ional Health - Occupational Stress [...] documented as of this encounter Care Teams Workforce Development Specialist Relationship Specialty Start Date End Date Noreen Flores APRN CABBAGE SALTER [address] [place] [address] [place] [address] PCP - General Nurse Practitioner 01/09/19 12/12/21 Sudha Greene NP [facility] - [address] [address] PCP - General 11/01/22 Noreen Flores APRN CABBAGE SALTER [address] [place] [address] [place] [address] Assigned PCP 06/16/18 05/26/22 Kalyan Galvan Personal Advocate & Liaison (PAL) 08/08/19 04/26/21 Eduardo Sharma MD [address] [address] Assigned Sleep Provider 04/02/2005/07 Marcelo Artis, PA-C [address] [address] Assigned Musculoskeletal Provider 08/25/20 08/20/21 Noreen Flores APRN CABBAGE SALTER [address] [place] [address] [place] [address] Assigned PCP 08/05/22 03/16/23 Agatha Null DPM, Podiatry/Foot and Ankle Surgery [address] [facility] [address] [place] [address] Assigned Musculoskeletal Provider 11/04/22 [facility] [place] [address] [place] [address] Assigned PCP 07/05/23 documented as of this encounter
--- OUTSIDE RECORDS SUMMARY | 2023-10-19 16:32 | XMS_ITS | Encounter Summary ---
Author Name Unknown Organization [facility] Address [address] [place] [address] Care Team Providers Care Stull Installer Name Role Phone Noreen Flores APRN BROKERAGE BRANCH MANAGER Unavailable Noreen Flores APRN BROKERAGE BRANCH MANAGER Primary Car e Provider Marcelo Artis PA-C Unavailable [phone] Noreen Flores APRN BROKERAGE BRANCH MANAGER Unavailable Sudha Greene NP Primary Care Provider Agatha Null DPM, Podiatry /Foot and Ankle Surgery Unavailable [facility] [place] [place] Unavailable Encounter Details Date Type Department Care Team (Late st Contact Info) Description 07/25/2021 MyC Medical Advice [facility] [address] [facility] [address] [place] [address] Christi Panda MA Social History Tobacco [...] Friends and Family Patient declined 08/08/2019 Attends [employer] Patient declined 07/13 Active Member of [...] Answer Date Recorded PHQ-2 Score 0 11/10/2020 [facility] [place] of Occupat ional Health - Occupational Stress [...] documented as of this encounter Care Teams Stull Installer Relationship Specialty Start Date End Date Noreen Flores APRN BROKERAGE BRANCH MANAGER [address] [facility] [address] [place], [place] [address] PCP - General Nurse Practitioner 01/09/19 12/12/21 Sudha Greene NP [address] [address] PCP - General 11/01/22 Noreen Flores APRN BROKERAGE BRANCH MANAGER [address] [place] [address] [place] [address] Assigned PCP 06/16/18 05/26/22 Marcelo Artis PA-C [address] [place] [address] Assigned Musculoskeletal Provider 08/25/20 08/20/21 Noreen Flores APRN BROKERAGE BRANCH MANAGER [address] [place] [address] [place] [address] Assigned PCP 08/05/22 03/16/23 Agatha Null DPM, Podiatry/Foot and Ankle Surgery [address] [place] [address] [address] [place] [address] Assigned Musculoskeletal Provider 11/04/22 [facility] [place] [address] [place] [address] Assigned PCP 07/05/23 documented as of this encounter
--- OUTSIDE RECORDS SUMMARY | 2023-10-19 16:32 | XMS_ITS | Encounter Summary ---
Author Name Unknown Organization [facility] Address [address] [place] [address] Care Team Providers Care Mold Designer Name Role Phone Noreen Flores APRN CRO Unavailable Noreen Flores APRN CRO Primary Car e Provider Kalyan Galvan Unavailable Unavailable Lashae Trevino [facility] Unavailable [phone] Eduardo Sharma MD Unavailable Marcelo Artis PA-C Unavailable Rodrigo Man PA-C Unavailable [phone] Noreen Flores APRN CRO Unavailable Sudha Greene NP Primary Care Provider Agatha Null DPM, Podiatry /Foot and Ankle Surgery Unavailable [facility] [place] [facility] Unavailable Encounter Details Date Type Department Care Team (Late st Contact Info) Description 10/28/2020 [facility] M[facility] [place] [address] [facility] [address] [place] [address] Lashae Trevino, [facility] [address] [facility] [place] [address] Social History [...] Answer Date Recorded PHQ-2 Score 2 07/25/2018 [facility] [place] of Occupat ional Health - Occupational Stress [...] as of this encounter Care Teams Mold Designer Relationship Specialty Start Date End Date Noreen Flores APRN CRO [facility] [place] [address] PCP - General Nurse Practitioner 01/09/19 12/12/21 Sudha Greene NP [address] [address] PCP - General 11/01/22 Noreen Flores APRN CRO [address] [place] [address] [place] [address] Assigned PCP 06/16/18 05/26/22 Kalyan Galvan Personal Advocate & Liaison (PAL) 08/08/19 04/26/21 [facility] [address] [place] [address] [place] [address] Pharmacist Pharmacist 10/14/19 12/01/20 Eduardo Sharma MD [address] [facility] [address] [place] [address] Assigned Sleep Provider 04/02/2005/07 Marcelo Artis PA-C [id number] [place] [address] [address] [place] [address] Assigned Musculoskeletal Provider 08/25/20 08/20/21 Rodrigo Man PA-C [address] [place] [address] Assigned Surgical Provider 08/25/20 11/27/20 Noreen Flores APRN CRO [address] [facility] [place] [address] Assigned PCP 08/05/22 03/16/23 Agatha Null DPM, Podiatry/Foot and Ankle Surgery [address] [place] [address] Assigned Musculoskeletal Provider 11/04/22 [facility] [place] [facility] [address] [facility] [place] [address] Assigned PCP 07/05/23 documented as of this encounter
--- OUTSIDE RECORDS SUMMARY | 2023-10-19 16:32 | XMS_ITS | Encounter Summary ---
Author Name Unknown Organization [facility] Address [address] [place] [address] Care Team Providers Care Linux Consultant Name Role Phone Noreen Flores APRN MEDICAL RADIATION DOSIMETRIST Unavailable Noreen Flores APRN MEDICAL RADIATION DOSIMETRIST Primary Car e Provider Kalyan Galvan Unavailable Unavailable Lashae Trevino [facility] Unavailable [phone] Eduardo Sharma MD Unavailable Marcelo Artis PA-C Unavailable Rodrigo Man PA-C Unavailable Noreen Flores APRN MEDICAL RADIATION DOSIMETRIST Unavailable Sudha Greene NP Primary Care Provider Agatha NullM, Podiatry /Foot and Ankle Surgery Unavailable [facility] - [place] [facility] Unavailable Encounter Details Date Type [...] Answer Date Recorded PHQ-2 Score 2 07/25/2018 [facility] of Occupat ional Health - Occupational [...] documented as of this encounter Care Teams Linux Consultant Relationship Specialty Start Date End Date Noreen Flores APRN MEDICAL RADIATION DOSIMETRIST [address] [facility] [place] [address] PCP - General Nurse Practitioner 01/09/19 12/12/21 Sudha Greene NP [address] [address] PCP - General 11/01/22 Noreen Flores APRN MEDICAL RADIATION DOSIMETRIST [address] [place] [address] [place] [address] Assigned PCP 06/16/18 05/26/22 Kalyan Galvan Personal Advocate & Liaison (PAL) 08/08/19 04/26/21 [facility] [place] [address] Pharmacist Pharmacist 10/14/19 12/01/20 Eduardo Sharma MD [address] [place] [address] Assigned Sleep Provider 04/02/2005/07 Marcelo Artis PA-C [address] [place] [address] [address] [place] [address] Assigned Musculoskeletal Provider 08/25/20 08/20/21 Rodrigo Man PA-C [address] [place] [address] Assigned Surgical Provider 08/25/20 11/27/20 Noreen Flores APRN MEDICAL RADIATION DOSIMETRIST [address] [facility] [place] [address] Assigned PCP 08/05/22 03/16/23 Agatha Null DPM, Podiatry/Foot and Ankle Surgery [address] [place] [address] Assigned Musculoskeletal Provider 11/04/22 [facility] - [place] [place] [address] [facility] [place] [address] Assigned PCP 07/05/23 documented as of this encounter
--- OUTSIDE RECORDS SUMMARY | 2023-10-19 16:32 | XMS_ITS | Encounter Summary ---
Author Name Unknown Organization [place] Address [address] [place] [address] Care Team Providers Care Betting Clerks Name Role Phone Noreen Flores APRN ELOCUTION TEACHER Unavailable Noreen Flores APRN ELOCUTION TEACHER Primary Car e Provider Kalyan Galvan Unavailable Unavailable Lashae Trevino [facility] Unavailable [phone] Eduardo Sharma MD Unavailable Marcelo Artis PA-C Unavailable Rodrigo Man PA-C Unavailable [phone] Noreen Flores APRN ELOCUTION TEACHER Unavailable Sudha Greene NP Primary Care Provider Agatha Null DPM, Podiatry /Foot and Ankle Surgery Unavailable Clinic - [facility] Unavailable Reason for Visit * Reason Onset Date Comments Refill Request 09/24/2020 zolpidem (AMBIEN ) 5 MG tablet Encounter Details Date Type Department Care Team (Late st Contact Info) Description 09/24/2020 [facility] [address] [place] [address] Noreen Flores APRN ELOCUTION TEACHER [address] [facility] [place] [address] Refill Request (zolpidem [...] Answer Date Recorded PHQ-2 Score 2 07/25/2018 [facility] [place] of Occupat ional Health - Occupational Stress [...] documented as of this encounter Care Teams Betting Clerks Relationship Specialty Start Date End Date Noreen Flores APRN ELOCUTION TEACHER [address] [place] [address] [place] [address] PCP - General Nurse Practitioner 01/09/19 12/12/21 Sudha Greene, MAURICIO [address] [address] PCP - General 11/01/22 Noreen Flores APRN ELOCUTION TEACHER [address] [place] [address] [place] [address] Assigned PCP 06/16/18 05/26/22 Kalyan Galvan Personal Advocate & Liaison (PAL) 08/08/19 04/26/21 Lashae Trevino, [facility] [address] [place] [address] Pharmacist Pharmacist 10/14/19 12/01/20 Eduardo Sharma MD [address] [place] [place] [address] Assigned Sleep Provider 04/02/2005/07 Marcelo Artis PA-C [address] [facility] [address] [place] [address] Assigned Musculoskeletal Provider 08/25/20 08/20/21 Rodrigo Man PA-C [address] [facility] [address] [place] [address] Assigned Surgical Provider 08/25/20 11/27/20 Noreen Flores APRN CNP [address] [place] [address] [place] [address] Assigned PCP 08/05/22 03/16/23 Agatha Null DPM, Podiatry/Foot and Ankle Surgery [address] [place] [address] [address] [place] [address] Assigned Musculoskeletal Provider 11/04/22 [facility] - [facility] [address] [place] [address] [place] [address] Assigned PCP 07/05/23 documented as of this encounter
--- OUTSIDE RECORDS SUMMARY | 2023-10-19 16:32 | XMS_ITS | Encounter Summary ---
Author Name Unknown Organization [place] Address [address] [place] [address] Care Team Providers Care Import Coordinator Name Role Phone Noreen Flores APRN LOW EMISSION AUTOMOBILE DESIGNER Unavailable Sudha Greene NP Primary Care Provider Agatha Null DPM, Podiatry /Foot and Ankle Surgery Unavailable [facility] - [facility] Unavailable Encounter Details Date Type Department Care Team (Late st Contact Info) Description 01/12/2023 [facility] Medical Advice [facility] [address] [place] [address] Agatha Null DPM, Podiatry/Foot and Ankle Surgery [address] [place] [address] Chronic pain of right ankle [...] Recorded PHQ-2 Score 0 11/10/2020 [facility] [place] of Occupat ional Health - Occupational Stress [...] for providerreview/ signature. Haily Gandhi MSA, ATC Web Applications Administrator documented in this encounter Plan of Treatment Not on file documented as of this encounter Visit Diagnoses Diagnosis Chronic pain of right ankle- Primary Peroneal tendon tear, right, subsequent encounter documented in this encounter Additional Health Concerns Assessment Noted Time PHQ-9 Depression Total Score: 7 11/11/19 21 1:31 PM CDT documented as of this encounter Care Teams Import Coordinator Relationship Specialty Start Date End Date Sudha Greene NP [address] [address] PCP - General 11/01/22 Noreen Flores APRN CNP [address] [place] [address] [place] [address] Assigned PCP 08/05/22 03/16/23 Agatha Null DPM, Podiatry/Foot and Ankle Surgery [address] [place] [address] Assigned Musculoskeletal Provider 11/04/22 [facility] [address] [place] [address] [place] [address] Assigned PCP 07/05/23 documented as of this encounter
--- OUTSIDE RECORDS SUMMARY | 2023-10-19 16:32 | XMS_ITS | Encounter Summary ---
Author Name Unknown Organization [place] Address [address] [place] [address] Care Team Providers Care Coat Joiner Name Role Phone Noreen Flores APRN POUNCING LATHE OPERATOR Unavailable Noreen Flores APRN POUNCING LATHE OPERATOR Primary Car e Provider Kalyan Galvan Unavailable Unavailable Lashae Trevino [facility] Unavailable Eduardo Sharma MD Unavailable Marcelo Artis PA-C Unavailable Rodrigo Man PA-C Unavailable [phone] Noreen Flores APRN POUNCING LATHE OPERATOR Unavailable Sudha Greene NP Primary Care Provider Agatha Null DPM, Podiatry /Foot and Ankle Surgery Unavailable [facility] - [facility] Unavailable Encounter Details Date Type Department Care Team (Late st Contact Info) Description 10/20/2020 [facility] Moya [facility] [address] [facility] [address] [place] [address] Lainey Wells [...] Friends and Family Patient declined 08/08/2019 Attends Synagogue Services Patient declined 07/13 Active Member of [...] Date Recorded PHQ-2 Score 2 07/25/2018 [facility] of Occupat ional Health - Occupational [...] documented as of this encounter Care Teams Coat Joiner Relationship Specialty Start Date End Date Noreen Flores APRN POUNCING LATHE OPERATOR [address] [facility] [place] [address] PCP - General Nurse Practitioner 01/09/19 12/12/21 Sudha Greene, MAURICIO [address] [address] PCP - General 11/01/22 Noreen Flores APRN POUNCING LATHE OPERATOR [address] [place] [address] [place] [address] Assigned PCP 06/16/18 05/26/22 Kalyan Galvan Personal Advocate & Liaison (PAL) 08/08/19 04/26/21 Lashae Trevino, [facility] [place] [address] Pharmacist Pharmacist 10/14/19 12/01/20 Eduardo Sharma MD [address] [place] [address] Assigned Sleep Provider 04/02/2005/07 Marcelo Artis PA-C [address] [facility] [address] [place] [address] Assigned Musculoskeletal Provider 08/25/20 08/20/21 Rodrigo Man PA-C [address] [place] [address] Assigned Surgical Provider 08/25/20 11/27/20 Noreen Flores APRN POUNCING LATHE OPERATOR [address] [facility] [place] [address] Assigned PCP 08/05/22 03/16/23 Agatha Null DPM, Podiatry/Foot and Ankle Surgery [address] [place] [address] Assigned Musculoskeletal Provider 11/04/22 Clinic - [facility] [address] [facility] [place] [id number] Assigned PCP 07/05/23 documented as of this encounter
--- OUTSIDE RECORDS SUMMARY | 2023-10-19 16:32 | XMS_ITS | Encounter Summary ---
Author Name Unknown Organization [place] Address [address] [place] [address] Care Team Providers Care Take Off Worker Name Role Phone Noreen Flores APRN HELP DESK REP Unavailable Noreen Flores APRN HELP DESK REP Primary Car e Provider Kalyan Galvan Unavailable Unavailable Lashae Trevino [facility] Unavailable Eduardo Sharma MD Unavailable Marcelo Artis PA-C Unavailable Rodrigo Man PA-C Unavailable [phone] Noreen Flores APRN HELP DESK REP Unavailable Sudha Greene NP Primary Care Provider Agatha Null DPM, Podiatry /Foot and Ankle Surgery Unavailable Clinic - [facility] Unavailable Reason for Visit * Reason Onset Date Comments Refill Request 10/05/2020 topiramate (TOPA MAX) 100 MG tablet Encounter Details Date Type Department Care Team (Late st Contact Info) Description 10/05/2020 [facility]claudia [facility] [place] [address] [place] [address] Noreen Flores APRN HELP DESK REP [address] [facility] [place] [address] Refill Request (topiramate [...] Friends and Family Patient declined 08/08/2019 Attends Sikh Services Patient declined 07/13 Active Member of [...] Date Recorded PHQ-2 Score 2 07/25/2018 [facility] [place] of Occupat ional Health - Occupational Stress [...] documented as of this encounter Care Teams Take Off Worker Relationship Specialty Start Date End Date Noreen Flores APRN HELP DESK REP [address] [place] [address] [place] [address] PCP - General Nurse Practitioner 01/09/19 12/12/21 Sudha Greene NP [address] [address] PCP - General 11/01/22 Noreen Flores APRN HELP DESK REP [address] [place] [address] [place] [address] Assigned PCP 06/16/18 05/26/22 Klayan Galvan Personal Advocate & Liaison (PAL) 08/08/19 04/26/21 Lashae Trevino, [facility] 14[address] [facility] [place] [address] Pharmacist Pharmacist 10/14/19 12/01/20 Eduardo Sharma MD [address] [place] [address] Assigned Sleep Provider 04/02/2005/07 Marcelo Artis PA-C [address] [facility] 300 [place] [address] Assigned Musculoskeletal Provider 08/25/20 08/20/21 Rodrigo Man PA-C [address] [place] [address] Assigned Surgical Provider 08/25/20 11/27/20 Noreen Flores APRN CNP [address] [place] [address] [place] [address] Assigned PCP 08/05/22 03/16/23 Agatha Null DPM, Podiatry/Foot and Ankle Surgery [address] [facility] [address] [place] [address] Assigned Musculoskeletal Provider 11/04/22 [facility] 3[address] [facility] [place] [address] Assigned PCP 07/05/23 documented as of this encounter
--- OUTSIDE RECORDS SUMMARY | 2023-10-19 16:32 | XMS_ITS | Clinical Summary ---
Author Name Unknown Organization [employer] Address [address] [place] [address] Care Team Providers Care Appointment Manager Name Role Phone Sudha Greene NP Primary Care Provider Agatha Null DPM, Podiatry /Foot and Ankle Surgery Unavailable [facility] Unavailable Allergies Active Allergy Reactions [...] sprayIndications:Al lergic rhinitis, unspecified seasonality, unspecified trigger [place] 1-2 sprays into both nostrils daily 16 [...] Comments Blood Pressure 128/80 05/11/2023 1:07 PM STACKER OPERATOR Pulse 87 02/26/2023 3:58 PM CDT Temperature 36.2 ??C (97.2 ??F) 02/26/2023 3:58 PM CD T Respiratory Rate 12 02/26/2023 3:13 PM CDT Oxygen Saturation 95% 02/26/2023 4:00 PM CDT Inhaled Oxygen Concentration - - Weight 87.1 kg (192 lb) 05/11/2023 1:07 PM STACKER OPERATOR Height 156 cm (5' 1.42) 02/26/2023 [...] - HIM SCAN 05/17/2020 1 2:00 AM STACKER OPERATOR HEMOGLOBIN A1C Routine 01/13/2020 8:55 AM CDT Type 2 diabetes mellitus with complication, without long-term current use of insulin (H) FECAL COLORECTAL CANCER SCREEN FIT Routine 01/12/2020 8:00 AM CDT Health care maintenance ALBUMIN RANDOM URINE QUANTITATIVE Routine 08/08/2019 10:17 AM STACKER OPERATOR Routine general medical examination at a health care facility LIPID REFLEX TO DIRECT LDL PANEL Routine 08/08/2019 10:17 AM STACKER OPERATOR Routine general medical examination at a [facility] care facility MA SCREENING DIGITAL BILATERAL Routine 09/03/2018 10:13 AM CDT Health care maintenance HIV ANTIGEN ANTIBODY COMBO Routine 04/09/2018 10:09 AM CDT Encounter for screening for HIV HEPATITIS C SCREEN REFLEX TO HCV RNA QUANT AND GENOTYPE Routine 09/25/2016 2:30 PM CDT Need for hepatitis C screening test HPV HIGH RISK TYPES DNA CERVICAL Routine 05/03/2016 12:17 PM STACKER OPERATOR Cervical cancer screening PAP IMAGED THIN LAYER SCREEN Routine 05/03/2016 12:00 AM STACKER OPERATOR Cervical cancer screening C FOOT EXAM Routine 10/06/2014 9:47 AM CDT Type 2 diabetes, HbA1C goal < 7% (H) from Last 3 Months or Most Recently Relevant to Health Maintenance Results * (ABNORMAL) Comprehensive metabolic panel (11/10/2020 2:29 PM CDT) Sodium 142 133 - 144 mmol/L 11/10/2020 7:51 PM CDT [facility] Potassium 4.0 3.4 - 5.3 mmol/L 11/10/2020 7:51 PM T [facility] Chloride 112(H) 94 - 109 mmol/L 11/10/2020 7:51 PM T [facility] Carbon Dioxide 27 20 - 32 mmol/L 11/10/2020 7:58 PM T [facility] Anion Gap 4 3 - 14 mmol/L 11/10/2020 7:58 PM T [facility] Glucose 96 70 - 99 mg/dL 11/10/2020 7:58 PM T [facility] Urea Nitrogen 14 7 - 30 mg/dL 11/10/2020 7:58 PM T [facility] Creatinine 0.74 0.52 - 1.04 mg/dL 11/10/2020 7:58 PM [facility] GFR Estimate >90 >60 mL/min/{1 .73_m2} 11/10/2020 7:58 PM [facility] Comment: Non GFR Calc Starting 05/28/2018, serum creatinine based estimated GFR (eGFR) will be calculated using the Chronic Kidney Disease Epidemiology Collaboration (CKD-EPI) equation. GFR Estimate If Black >90 >60 mL/min/{1 .73_m2} 11/10/2020 7:58 PM [facility] Comment: GFR Calc Starting 05/28/2018, serum creatinine based estimated GFR (eGFR) will be calculated using the Chronic Kidney Disease Epidemiology Collaboration (CKD-EPI) equation. Calcium 9.3 8.5 - 10.1 mg/dL 11/10/2020 7:58 PM T [facility] Bilirubin Total 0.6 0.2 - 1.3 mg/dL 11/10/2020 8:01 PM T [facility] Albumin 3.6 3.4 - 5.0 g/dL 11/10/2020 8:01 PM T [facility] Protein Total 7.2 6.8 - 8.8 g/dL 11/10/2020 8:01 PM T [facility] Alkaline Phosphatase 143 40 - 150 U/L 11/10/2020 8:01 PM CDT [facility] ALT 23 0 - 50 U/L 11/10/2020 8:01 PM CDT [facility] AST 16 0 - 45 U/L 11/10/2020 8:01 PM CDT [facility] Blood 11/10/2020 2:29 PM CDT 11/10/2020 3:04 PM CDT Kavin Fitzgerald PA-C LAB - BLO OD ORDERABLES [facility] [address] [place] [address] * EYE EXAM - HIM SCAN (05/17/2020 12:00 AM STACKER OPERATOR) Pathologist [facility] RETINOPATHY NEGATIVE 05/17/2020 Narrative Lauren Posada - 05/17/2020 12:00 AM STACKER OPERATOR DIABETIC EYE EXAM [facility] Provider Outside OTHER * (ABNORMAL) A1C FUTURE 1yr (01/13/2020 8:55 AM CDT) [facility] Hemoglobin A1C 6.1(H) 0 - 5.6 % 01/13/2020 9:27 AM CDT [facility] Comment: Normal <5.7% Prediabetes 5.7-6.4% ??Diabetes 6.5% or higher - adopted from ADA consensus guidelines. Blood specimen (specimen) 01/13/2020 8:55 AM CDT 01/13/2020 8:56 AM CDT Noreen Flores APRN FRENCH TUTOR LAB - BLOOD ORDERABLES [facility] [address] [place] [address] * Fecal colorectal cancer screen (FIT) (01/12/2020 8:00 AM CDT) [facility] Occult Blood Scn FIT Negative NEG^Negati ve 01/18/2020 4:19 PM CDT [facility] Stool specimen (specimen) 01/12/2020 8:00 AM CDT 01/18/2020 1:16 PM CDT Noreen Flores APRN, CNP LAB - STOOLS ORDERABLES [facility] [address] [place] [address] * Albumin Random Urine Quantitative with Creat Ratio (08/08/2019 10:17 AM STACKER OPERATOR) Creatinine Urine 154 mg/dL 08/09/2019 1:54 PM STACKER OPERATOR [facility] Albumin Urine mg/L 11 mg/L 08/09/2019 1:59 PM STACKER OPERATOR [facility] Albumin Urine mg/g Cr 7.14 0 - 25 mg/g Cr 08/09/2019 1:59 PM STACKER OPERATOR [facility] Urine specimen (specimen) 08/08/2019 10:17 AM STACKER OPERATOR 08/08/2019 10:18 AM STACKER OPERATOR Noreen Flores APRN, CNP LAB - URINE ORDERABLES [facility] [address] [place] [address] * (ABNORMAL) Lipid panel reflex to direct LDL Fasting (08/08/2019 10:17 AM STACKER OPERATOR) Cholesterol 180 <200 mg/dL 08/08/2019 7:47 PM [facility] Triglycerides 153(H) <150 mg/dL 08/08/2019 7:47 PM [facility] Comment: Borderline high: ??150-199 mg/dl High: ? 200-499 mg/dl Very high: ? >499 mg/dl HDL Cholesterol 46(L) >49 mg/dL 0 7:47 PM STACKER OPERATOR [facility] LDL Cholesterol Calculated 103(H) <100 mg/dL 08/08/2019 7:47 PM [facility] Comment: Above desirable: ??100-129 mg/dl Borderline High: ??130-159 mg/dL High: ? 160-189 mg/dL Very high: ? >189 mg/dl Non HDL Cholesterol 134(H) <130 mg/dL 08/08/2019 7:47 PM [facility] Comment: Above Desirable: ??130-159 mg/dl Borderline high: ??160-189 mg/dl High: ? 190-219 mg/dl Very high: ? >219 mg/dl Blood specimen (specimen) 08/08/2019 10:17 AM STACKER OPERATOR 08/08/2019 10:18 AM STACKER OPERATOR Noreen Flores APRN FRENCH TUTOR LAB - BLOOD ORDERABLES Performing Organization Address City/State/[facility] Co de Phone Number [facility] [address] [place] [address], [facility] [phone] * *MA Screening Digital Bilateral (09/03/2018 10:13 AM CDT) Anatomical Region Laterality Modality Breast Bilateral Mammography Impressions 09/03/2018 10:30 AM CDT IMPRESSION: BI-RADS CATEGORY: 1 - ??Negative. RECOMMENDED FOLLOW-UP: Annual Mammography. PANCHITO DESIR MD Narrative 09/03/2018 10:30 AM CDT SCREENING MAMMOGRAM, BILATERAL, DIGITAL w/CAD, 09/03/2018 10:29 AM BREAST DENSITY: Scattered fibroglandular densities. CLINICAL INFORMATION: Breast screening. ??[facility] 09/30/15, 04/16/15, 05/27/13 FINDINGS: Negative. Stable exam. Screening exam in one year recommended. Procedure Note Panchito Desir MD - 09/03/2018 SCREENING MAMMOGRAM, BILATERAL, DIGITAL w/CAD, 09/03/2018 10:29 AM BREAST DENSITY: Scattered fibroglandular densities. CLINICAL INFORMATION: Breast screening. [facility] 09/30/15, 04/16/15, 05/27/13 FINDINGS: Negative. Stable exam. Screening exam in one year recommended. IMPRESSION: BI-RADS CATEGORY: 1 - Negative. RECOMMENDED FOLLOW-UP: Annual Mammography. PANCHITO DESIR MD Noreen Flores APRN, CNP IMG MAMMOGRAPHY ORDERABLES * HIV Antigen Antibody Combo (04/09/2018 10:09 AM CDT) HIV Antigen Antibody Combo Nonreactive NR^Nonrea ctive 04/10/2018 7:29 AM CDT [facility] Comment:HIV-1 p24 Ag & HIV-1 /HIV-2 Ab Not Detected Blood specimen (specimen) 04/09/2018 10:09 AM CDT 04/09/2018 10:15 AM CDT Norene Flores APRN, CNP LAB - BLOOD ORDERABLES [facility] [address] * Hepatitis C Screen Reflex to HCV RNA Quant and Genotype (09/25/2016 2:30 PM CDT) Pathologist [facility] Hepatitis C Antibody Nonreactive Assay performance characteristics have not been established for newborns, infants, and children NR [facility] Blood specimen (specimen) 09/25/2016 2:30 PM CDT 09/26/2016 11:29 AM CDT Vanda Borja MD LAB - BLOOD ORDER ILDEFONSO [facility] [address] [place] [address] * HPV High Risk Types DNA Cervical (05/03/2016 12:17 PM STACKER OPERATOR) HPV 16 DNA Negative NEG [facility] HPV 18 DNA Negative NEG [facility] Other HR HPV Negative NEG [facility] Final Diagnosis This patient's sample is negative [...] and its performance characteristics determined by the [facility]. It has not been cleared or approved by the FDA. The laboratory is regulated under CLIA as qualified to perform high-complexity testing. This test is used for clinical purposes. It should not be regarded as investigational or for research. [facility] Specimen Description Cervical Cells [id number] [facility] Cervical Cells 05/03/2016 12 :17 PM STACKER OPERATOR 05/03/2016 12:20 PM STACKER OPERATOR Vanda Borja MD LAB - BLOOD ORDER ILDEFONSO [facility] [address] [place] [address] * Pap imaged thin layer screen with HPV - recommended age 30 - 65 years (select HPV order below) (05/03/2016 12:00 AM STACKER OPERATOR) PAP RAMSEY Wren Report Patient Name: MEGAN WONG MR#: [id number] Specimen #: [id number] Collected: 05/03/2016 Received: 05/05/2016 Reported: 05/09/2016 08:26 [...] TARIQ Wick (ASCP) Processed and screened at [facility] CLINICAL HISTORY: LMP: 10/30/11 Post Menopausal, Previous normal pap Date of Last Pap: 10/06/14, Papanicolaou Test Limitations: ??Cervical cytology is a screening test with limited sensitivity; regular screening is critical for cancer prevention; Pap tests are primarily effective for the diagnosis/preventi on of squamous cell carcinoma, not adenocarcinomas or other cancers. TESTING LAB LOCATION: [address] ??[id number] COLLECTION SITE: Client: ??[facility] Location: [facility] (R) COPATH Cytologic material (specimen) 05/03/2016 05/05/2016 10:22 AM STACKER OPERATOR Vanda Borja MD LAB - OPTIME CLIN ICAL SPECIMEN COPATH from Last 3 Months or Most Recently Relevant to Health Maintenance Care Teams Appointment Manager Relationship Specialty Start Date End Date Sudha Greene NP [facility] [address] [place] [address] PCP - General 11/01/22 Agatha Null, MARÍA, Podiatry/Foot and Ankle Surgery [address] [place] [address] Assigned Musculoskeletal Provider 11/04/22 Clinic - Nita Pringle [address] [address] Assigned PCP 07/05/23
--- OUTSIDE RECORDS SUMMARY | 2023-10-19 16:32 | XMS_ITS | Encounter Summary ---
Author Name Unknown Organization [place] Address [address] [place] [address] Care Team Providers Care Laser Print Operator Name Role Phone Noreen Flores APRN ORANGE PICKER MACHINE OPERATOR Unavailable Sudha Greene NP Primary Care Provider Agatha Null DPM, Podiatry /Foot and Ankle Surgery Unavailable [facility] - [facility] Unavailable Encounter Details Date Type Department Care Team (Late st Contact Info) Description 01/04/2023 [facility] Medical Advice [facility] [address] [place] [address] Tony Orozco Social History Tobacco [...] Answer Date Recorded PHQ-2 Score 0 11/10/2020 [facility] of Occupat ional Health - [...] as of this encounter Care Teams Laser Print Operator Relationship Specialty Start Date End Date Sudha Greene NP [address] [address] PCP - General 11/01/22 Noreen Flores APRN ORANGE PICKER MACHINE OPERATOR [facility] [place] [address] Assigned PCP 08/05/22 03/16/23 Agatha Null DPM, Podiatry/Foot and Ankle Surgery [address] [place] [address] Assigned Musculoskeletal Provider 11/04/22 Clinic - [facility] [address] [place] [address] [place] [address] Assigned PCP 07/05/23 documented as of this encounter
--- OUTSIDE RECORDS SUMMARY | 2023-10-19 16:33 | XMS_ITS | Encounter Summary ---
Author Name Unknown Organization [facility] Address [address] [place] [address] Care Team Providers Care Straddle Buggy Operator Name Role Phone Noreen Flores APRN MANAGER STUDIO Unavailable Noreen Flores APRN MANAGER STUDIO Primary Car e Provider Kalyan Galvan Unavailable Unavailable Lashae Trevino [facility] Unavailable Eduardo Sharma MD Unavailable Rios Monteiro MD Unavailable [phone] Marcelo Artis PA-C Unavailable Rodrigo Man PA-C Unavailable [phone] Noreen Flores APRN MANAGER STUDIO Unavailable Sudha Greene NP Primary Care Provider [phone] Agatha Null DPM, Podiatry /Foot and Ankle Surgery Unavailable Clinic - [place] [facility] Unavailable Encounter Details Date Type Department Care Team (Late st Contact Info) Description 07/15/2020 Myra Moya [facility] [place] [address] [place] [address] Noreen Flores APRN CNP [address] [facility] [place] [id number] Social History Tobacco Use Types Packs/Day Years [...] Answer Date Recorded PHQ-2 Score 2 07/25/2018 [facility] [place] of Occupat ional Health - Occupational Stress [...] COVID-19? No / Unsure 07/17/2020 1:32 PM DIETARY AIDE COOK documented as of this encounter Plan of [...] documented as of this encounter Care Teams Straddle Buggy Operator Relationship Specialty Start Date End Date Noreen Flores APRN MANAGER STUDIO [address] [place] [address] [place] [address] PCP - General Nurse Practitioner 01/09/19 12/12/21 Sudha Greene, MAURICIO [address] [address] PCP - General 11/01/22 Noreen Flores APRN MANAGER STUDIO [address] [place] [address] [place] [address] Assigned PCP 06/16/18 05/26/22 Kalyan Galvan Personal Advocate & Liaison (PAL) 08/08/19 04/26/21 Lashae Trevino, [facility] [address] [place] [address] Pharmacist Pharmacist 10/14/19 12/01/20 Eduardo Sharma MD [address] [place] [address] Assigned Sleep Provider 04/02/2005/07 [place] [address] 902627 Assigned Musculoskeletal Provider 04/02/20 08/24/20 Marcelo Artis PA-C [address] [address] Assigned Musculoskeletal Provider 08/25/20 08/20/21 Rodrigo Man PA-C [address] [address] Assigned Surgical Provider 08/25/20 11/27/20 Noreen Flores APRN MANAGER STUDIO [address] [place] [address] [place] [address] Assigned PCP 08/05/22 03/16/23 Agatha Null DPM, Podiatry/Foot and Ankle Surgery [address] [facility] [address] [place] [address] Assigned Musculoskeletal Provider 11/04/22 [facility] - [place] [facility] [address] [place] [address] [place] [address] Assigned PCP 07/05/23 documented as of this encounter
--- OUTSIDE RECORDS SUMMARY | 2023-10-19 16:33 | XMS_ITS | Encounter Summary ---
Author Name Unknown Organization [facility] Address [address] [place] [address] Care Team Providers Care Fleecer Name Role Phone Noreen Flores APRN, CNP Unavailable Noreen Flores APRN, CNP Primary Car e Provider Kalyan Galvan Unavailable Unavailable Lashae Trevino [facility] Unavailable Eduardo Sharma MD Unavailable Rios Monteiro MD Unavailable Marcelo Artis PA-C Unavailable [phone] Rodrigo Man PA-C Unavailable [phone] Noreen Flores APRN, CNP Unavailable Sudha Greene NP Primary Care Provider [phone] Agatha Null DPM, Podiatry /Foot and Ankle Surgery Unavailable Clinic - [place] [facility] Unavailable Reason for Visit * Reason Comments Medication Refill Encounter Details Date Type Department Care Team (Late st Contact Info) Description 07/10/2020 Refill [facility] [place] [address] [place] [address] Noreen Flores APRN CNP [address] [facility] [place] [address] Medication Refill Social [...] Friends and Family Patient declined 08/08/2019 Attends Zoroastrian Services Patient declined 07/13 Active Member of [...] Answer Date Recorded PHQ-2 Score 2 07/25/2018 [facility] of Occupat ional Health - Occupational [...] Desirae Champagne RN - 07/13/2020 11:10 AM SENIOR ANALYST Routing refill request to provider for review/approval because: Patient taking 8-10 sumatriptan a month. Desirae Champagne RN on 07/13/2020 at 11:11 AM OR ANALYST * Telephone Encounter - Lainey Wells - 07/12/2020 2:22 PM CST The pt called back and she says that she takes anywhere from 8-10 a month. Lainey Wells on 07/12/2020 at 2:25 PM OR ANALYST * Telephone Encounter - Lainey Wells - 07/12/2020 10:59 AM CST 1st attempt l/m. Lainey Wells on 07/12/2020 at 10:59 AM OR ANALYST * Telephone Encounter - Desirae Champagne RN - 07/12/2020 10:02 AM SENIOR ANALYST Please call patient and see how many doses of sumatriptan patient has used in the past month. Should be using 8 doses or fewer per month. Desirae Champagne RN on 07/12/2020 at 10:07 AM OR ANALYST documented in this encounter Plan of [...] documented as of this encounter Care Teams Fleecer Relationship Specialty Start Date End Date Noreen Flores APRN MEDICAL TECHNICIAN [address] [facility] [place] [address] PCP - General Nurse Practitioner 01/09/19 12/12/21 Sudha Greene NP [address] [address] PCP - General 11/01/22 Noreen Flores APRN MEDICAL TECHNICIAN [address] [place] [address] [place] [address] Assigned PCP 06/16/18 05/26/22 Kalyan Galvan Personal Advocate & Liaison (PAL) 08/08/19 04/26/21 [facility] [address] [place] [address] [place] [address] Pharmacist Pharmacist 10/14/19 12/01/20 Eduardo Sharma MD [address] [address] Assigned Sleep Provider 04/02/2005/07 [place] [address] [address] Assigned Musculoskeletal Provider 04/02/20 08/24/20 Marcelo Artis PA-C [address] [address] Assigned Musculoskeletal Provider 08/25/20 08/20/21 Rodrigo Man PA-C [address] [place] [address] Assigned Surgical Provider 08/25/20 11/27/20 Noreen Flores APRN MEDICAL TECHNICIAN [address] [facility] [place] [address] Assigned PCP 08/05/22 03/16/23 Agatha Null DPM, Podiatry/Foot and Ankle Surgery [address] [place] [id number] Assigned Musculoskeletal Provider 11/04/22 Clinic - [place] [facility] [address] [facility] [place] [id number] Assigned PCP 07/05/23 documented as of this encounter
--- OUTSIDE RECORDS SUMMARY | 2023-10-19 16:33 | XMS_ITS | Encounter Summary ---
Author Name Unknown Organization [facility] Address [address] [place] [address] Care Team Providers Care Auto Service Instructor Name Role Phone Noreen Flores APRN LEATHER SORTER Unavailable Noreen Flores APRN LEATHER SORTER Primary Car e Provider Kalyan Galvan Unavailable Unavailable Lashae Trevino [facility] Unavailable [phone] Eduardo Sharma MD Unavailable Rios Monteiro MD Unavailable Marcelo Artis PA-C Unavailable Rodrigo Man PA-C Unavailable [phone] Noreen Flores APRN LEATHER SORTER Unavailable Sudha Greene NP Primary Care Provider Agatha Null DPM, Podiatry /Foot and Ankle Surgery Unavailable Clinic - [place] [facility] Unavailable Encounter Details Date Type Department Care Team (Late st Contact Info) Description 12/23/2019 Myra Moya [facility] [place] [address] [place] [address] Noreen Flores APRN CNP [address] [facility] [place] [id number] Chronic seasonal allergic rhinitis Social History Tobacco [...] Answer Date Recorded PHQ-2 Score 2 07/25/2018 [facility] [place] of Occupat ional Health - Occupational Stress [...] PM CDT Please call [facility] in [facility] and find out why they are having [...] Total Score: 9 08/09/19 20 7:03 AM BIKE DESIGNER documented as of this encounter Care Teams Auto Service Instructor Relationship Specialty Start Date End Date Noreen Flores APRN LEATHER SORTER [address] [facility] [place] [address] PCP - General Nurse Practitioner 01/09/19 12/12/21 Sudha Greene NP [address] [address] PCP - General 11/01/22 Noreen Flores APRN LEATHER SORTER [address] [place] [address] [place] [address] Assigned PCP 06/16/18 05/26/22 Kalyan Galvan Personal Advocate & Liaison (PAL) 08/08/19 04/26/21 [facility] [address] [place] [address] [place] [address] Pharmacist Pharmacist 10/14/19 12/01/20 Eduardo Sharma MD [address] [address] Assigned Sleep Provider 04/02/2005/07 [place] [address] [address] Assigned Musculoskeletal Provider 04/02/20 08/24/20 Marcelo Artis PA-C [address] [address] Assigned Musculoskeletal Provider 08/25/20 08/20/21 Rodrigo Man PA-C [address] [place] [address] Assigned Surgical Provider 08/25/20 11/27/20 Noreen Flores APRN LEATHER SORTER [address] [facility] [place] [address] Assigned PCP 08/05/22 03/16/23 Agatha Null DPM, Podiatry/Foot and Ankle Surgery [address] [place] [id number] Assigned Musculoskeletal Provider 11/04/22 Clinic - [place] [facility] [address] [facility] [place] [id number] Assigned PCP 07/05/23 documented as of this encounter
--- OUTSIDE RECORDS SUMMARY | 2023-10-19 16:33 | XMS_ITS | Encounter Summary ---
Author Name Unknown Organization [facility] Address [address] [place] [address] Care Team Providers Care Puncher And Fastener Name Role Phone Noreen Flores APRN HEADER SET UP OPERATOR Unavailable Noreen Flores APRN HEADER SET UP OPERATOR Primary Car e Provider Kalyan Gavlan Unavailable Unavailable Lashae Trevino [facility] Unavailable Eduardo Sharma MD Unavailable Rios Monteiro MD Unavailable Marcelo Artis PA-C Unavailable Rodrigo Man PA-C Unavailable [phone] Noreen Flores APRN HEADER SET UP OPERATOR Unavailable Sudha Greene NP Primary Care Provider Agatha Null DPM, Podiatry /Foot and Ankle Surgery Unavailable Clinic - [place] [facility] Unavailable Encounter Details Date Type Department Care Team (Late st Contact Info) Description 05/31/2019 Myra Moya [facility] [place] [address] [facility] [address] [place] [address] Noreen Flores APRN CNP [address] [facility] [place] [address] Chronic seasonal allergic rhinitis [...] Angel Faria RN - 06/02/2019 8:06 AM TELECOMMUNICATIONS SALES REPRESENTATIVE Previous Rx did not successful e-scribe to pharmacy. Routing to PCP for approval. Please sent via fax. Multiple attempts in the past year with unsuccessful e-scribing. Route back to [facility] when completed. - Radu Faria RN Triage [facility] COMMUNICATIONS SALES REPRESENTATIVE documented in this encounter Plan [...] documented as of this encounter Care Teams Puncher And Fastener Relationship Specialty Start Date End Date Noreen Flores APRN HEADER SET UP OPERATOR [facility]5 [facility] [place] [address] PCP - General Nurse Practitioner 01/09/19 12/12/21 Sudha Greene NP [address] [address] PCP - General 11/01/22 Noreen Flores APRN HEADER SET UP OPERATOR [address] [facility] [place] [address] Assigned PCP 06/16/18 05/26/22 Kalyan Galvan Personal Advocate & Liaison (PAL) 08/08/19 04/26/21 Lashae Trevino, [facility] [address] [place] [address] [place] [address] Pharmacist Pharmacist 10/14/19 12/01/20 Eduardo Sharma MD [address] [place] [address] Assigned Sleep Provider 04/02/2005/07 [place] [address] [place] [address] Assigned Musculoskeletal Provider 04/02/20 08/24/20 Marcelo Artis PA-C [address] [place] [address] Assigned Musculoskeletal Provider 08/25/20 08/20/21 Rodrigo Man PA-C [address] [place] [address] Assigned Surgical Provider 08/25/20 11/27/20 Noreen Flores APRN HEADER SET UP OPERATOR [facility] [place] [address] Assigned PCP 08/05/22 03/16/23 Agatha Null, DPNita, Podiatry/Foot and Ankle Surgery [address] [place] [address] Assigned Musculoskeletal Provider 11/04/22 Clinic - [place] [address] [place] [address] Assigned PCP 07/05/23 documented as of this encounter
--- OUTSIDE RECORDS SUMMARY | 2023-10-19 16:33 | XMS_ITS | Encounter Summary ---
Author Name Unknown Organization [facility] Address [address] [place] [address] Care Team Providers Care Floor Covering Contractor Name Role Phone Noreen Flores APRN SUB MASTER Unavailable Noreen Flores APRN SUB MASTER Primary Car e Provider Kalyan Galvan Unavailable Unavailable Lashae Trevino [facility] Unavailable [phone] Eduardo Sharma MD Unavailable Rios Monteiro MD Unavailable Marcelo Artis PA-C Unavailable [phone] Rodrigo Man PA-C Unavailable [phone] Noreen Flores APRN SUB MASTER Unavailable Sudha Greene NP Primary Care Provider [phone] Agatha Null DPM, Podiatry /Foot and Ankle Surgery Unavailable Clinic - [place] 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 documented as of this encounter Care Teams Floor Covering Contractor Relationship Specialty Start Date End Date Jeana-Noreen Miles APRN CNP [address] [facility] [place] [address] PCP - General Nurse Practitioner 01/09/19 12/12/21 Sudha Greene NP [address] [place] [address] PCP - General 11/01/22 Noreen Flores APRN SUB MASTER [address] [place] [address] [place] [address] Assigned PCP 06/16/18 05/26/22 Kalyan Galvan Personal Advocate & Liaison (PAL) 08/08/19 04/26/21 [facility] [address] [place] [address] [place] [address] Pharmacist Pharmacist 10/14/19 12/01/20 Eduardo Sharma MD [address] [place] [address] Assigned Sleep Provider 04/02/2005/07 [place] [address] [place] [address] Assigned Musculoskeletal Provider 04/02/20 08/24/20 Marcelo Artis PA-C [address] [facility] [address] [place] [address] Assigned Musculoskeletal Provider 08/25/20 08/20/21 Rodrigo Man PA-C [address] [place], [place] [address] Assigned Surgical Provider 08/25/20 11/27/20 Noreen Flores APRN SUB MASTER [address] [place] [address] [place] [address] Assigned PCP 08/05/22 03/16/23 Agatha Null DPM, Podiatry/Foot and Ankle Surgery [address] [place] [address] Assigned Musculoskeletal Provider 11/04/22 [facility] [place] [address] [place] [address] Assigned PCP 07/05/23 documented as of this encounter
--- OUTSIDE RECORDS SUMMARY | 2023-10-19 16:33 | XMS_ITS | Encounter Summary ---
Author Name Unknown Organization [place] Address [address] [place] [address] Care Team Providers Care Distance Learning Program Coordinator Name Role Phone Noreen Flores APRN GERMAN INSTRUCTOR Unavailable Noreen Flores APRN GERMAN INSTRUCTOR Primary Car e Provider Kalyan Galvan Unavailable Unavailable Lashae Trevino [facility] Unavailable Eduardo Sharma MD Unavailable Marcelo Artis PA-C Unavailable Rodrigo Man PA-C Unavailable Noreen Flores APRN GERMAN INSTRUCTOR Unavailable Sudha Greene NP Primary Care Provider Agatha NullM, Podiatry /Foot and Ankle Surgery Unavailable [facility] - [place] [facility] Unavailable Encounter Details Date Type [...] Friends and Family Patient declined 08/08/2019 Attends Voodoo Services Patient declined 07/13 Active Member of [...] Date Recorded PHQ-2 Score 2 07/25/2018 [facility] of Occupat ional Health [...] documented as of this encounter Care Teams Distance Learning Program Coordinator Relationship Specialty Start Date End Date Noreen Flores APRN GERMAN INSTRUCTOR [address] [place] [address] [place] [address] PCP - General Nurse Practitioner 01/09/19 12/12/21 Sudha Greene, MAURICIO [address] [address] PCP - General 11/01/22 Noreen Flores APRN GERMAN INSTRUCTOR [address] [place] [address] [place] [address] Assigned PCP 06/16/18 05/26/22 Kalyan Galvan Personal Advocate & Liaison (PAL) 08/08/19 04/26/21 Lashae Trevino [facility] [place] [id number] Pharmacist Pharmacist 10/14/19 12/01/20 Eduardo Sharma MD [address] [place] [address] Assigned Sleep Provider 04/02/2005/07 Marcelo Artis PA-C [address] [facility] [address] [place] [address] Assigned Musculoskeletal Provider 08/25/20 08/20/21 Rodrigo Man PA-C [address] [place] [address] Assigned Surgical Provider 08/25/20 11/27/20 Noreen Flores APRN GERMAN INSTRUCTOR [address] [facility] [place] [address] Assigned PCP 08/05/22 03/16/23 Agatha Null DPM, Podiatry/Foot and Ankle Surgery [address] [place] [address] Assigned Musculoskeletal Provider 11/04/22 [facility] - [place] [facility] [address] [facility] [place] [address] Assigned PCP 07/05/23 documented as of this encounter
--- OUTSIDE RECORDS SUMMARY | 2023-10-19 16:33 | XMS_ITS | Encounter Summary ---
Author Name Unknown Organization [facility] Address [address] [place] [address] Care Team Providers Care Beef Cattle Farm Manager Name Role Phone Noreen Flores APRN, CNP Unavailable Noreen Flores APRN, CNP Primary Car e Provider Kalyan Galvan Unavailable Unavailable Lashae Trevino [facility] Unavailable Eduardo Sharma MD Unavailable Rios Monteiro MD Unavailable Marcelo Artis PA-C Unavailable [phone] Rodrigo Man PA-C Unavailable [phone] Noreen Flores APRN, CNP Unavailable Sudha Greene NP Primary Care Provider Agatha Null DPM, Podiatry /Foot and Ankle Surgery Unavailable Clinic - [place] [facility] Unavailable Reason for Visit * Reason Onset Date Comments Refill Request 08/08/2019 DULoxetine (CYMB EDIN) 30 MG capsule Encounter Details Date Type Department Care Team (Late st Contact Info) Description 08/08/[address] [facility] [address] [facility] [address] [place] [phone] Noreen Flores APRN CNP [address] [facility] [place] [address] Refill Request (DULoxetine (CYMBALTA) 30 MG capsule) [...] Score 2 07/25/2018 [facility] [place] of Occupat ional Health - Occupational Stress [...] Radha Manning RN - 08/13/2019 10:02 AM MOVIE SHOT CAMERA OPERATOR Noreen: I spoke with the Pt. The Pt has been taking 1, 30 mg capsule, once per day. She does not want to goup to 60 mg. Yasmin sent this in for her. Radha Manning RN [facility] -- Triage Nurse E SHOT CAMERA OPERATOR * Telephone Encounter - Noreen [place] APRN CNP - 08/11/2019 9:41 AM CST Please verify that she was previously taking 1 tab twice a day. If so, please switch it to 1, 60mg tab, once per day. Pls notify her of the change. E SHOT CAMERA OPERATOR * Telephone Encounter - Gayathri Mcallister RN - 08/11/2019 9:38 AM MOVIE SHOT CAMERA OPERATOR Please review sig for duloxetine, hydrochlorothiazide and metformin ( per review of last office visit 2000 mg daily of metformin, I am not sure about Duloxetine sig and dispense amount, Thank you) Gayathri Mcallister RN Message handled by Nurse Triage. E SHOT CAMERA OPERATOR * Telephone Encounter - Kartik Javier - 08/08/2019 5:46 PM CST Also Review Rx directions for Metformin hydrochloride 500 mg. Pharmacy is requesting clarification. E SHOT CAMERA OPERATOR * Telephone Encounter - Kartik Javier - 08/08/2019 2:39 PM CST Script Clarification: Rx has two sets of directions. Please send new Rx with the Proper Directions. Thanks. E SHOT CAMERA OPERATOR documented in this encounter Plan of [...] Total Score: 9 08/09/19 20 7:03 AM MOVIE SHOT CAMERA OPERATOR documented as of this encounter Care Teams Beef Cattle Farm Manager Relationship Specialty Start Date End Date Noreen Flores APRN HARMONICA MAKER [facility] [place] [address] PCP - General Nurse Practitioner 01/09/19 12/12/21 Sudha Greene, MAURICIO [address] [address] PCP - General 11/01/22 Noreen Flores APRN HARMONICA MAKER [address] [place] [address] [place] [address] Assigned PCP 06/16/18 05/26/22 Kalyan Galvan Personal Advocate & Liaison (PAL) 08/08/19 04/26/21 [facility] [address] [place] [address] Pharmacist Pharmacist 10/14/19 12/01/20 Eduardo Sharma MD [address] [place] [address] [place] [id number] Assigned Sleep Provider 04/02/2005/07 [place] [address] [address] Assigned Musculoskeletal Provider 04/02/20 08/24/20 Marcelo Artis PA-C [address] [address] Assigned Musculoskeletal Provider 08/25/20 08/20/21 Rodrigo Man PA-C [address] [address] Assigned Surgical Provider 08/25/20 11/27/20 Noreen Flores APRN HARMONICA MAKER [address] [place] [address] [place] [address] Assigned PCP 08/05/22 03/16/23 Agatha Null DPM, Podiatry/Foot and Ankle Surgery [address] [facility] [address] [place] [address] Assigned Musculoskeletal Provider 11/04/22 [facility] - [place] [facility] [address] [facility] [place] [address] Assigned PCP 07/05/23 documented as of this encounter
--- OUTSIDE RECORDS SUMMARY | 2023-10-19 16:33 | XMS_ITS | Encounter Summary ---
Author Name Unknown Organization [facility] Address [address] [place] [address] Care Team Providers Care Rewinder Name Role Phone Noreen Flores APRN HARNESS MAKER Unavailable Noreen Flores APRN HARNESS MAKER Primary Car e Provider Kalyan Galvan Unavailable Unavailable Lahsae Trevino [facility] Unavailable Eduardo Sharma MD Unavailable Rios Monteiro MD Unavailable Marcelo Artis PA-C Unavailable Rodrigo Man PA-C Unavailable [phone] Noreen Flores APRN, CNP Unavailable Sudha Greene NP Primary Care Provider Agatha Null DPM, Podiatry /Foot and Ankle Surgery Unavailable Clinic - [facility] Unavailable Encounter Details Date Type Department Care Team (Late st Contact Info) Description 08/02/2020 Myra Moya [facility] [address] [facility] [address] [place] [address] Lainey Wells Social History Tobacco [...] Answer Date Recorded PHQ-2 Score 2 07/25/2018 [facility] of Occupat ional Health - Occupational [...] COVID-19? 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 documented as of this encounter Plan of [...] documented as of this encounter Care Teams Rewinder Relationship Specialty Start Date End Date Noreen Flores APRN HARNESS MAKER [address] [place] [address] [place] [address] PCP - General Nurse Practitioner 01/09/19 12/12/21 Sudha Greene NP [address] [address] PCP - General 11/01/22 Noreen Flores APRN HARNESS MAKER [address] [place] [address] [place] [address] Assigned PCP 06/16/18 05/26/22 Kalyan Galvan Personal Advocate & Liaison (PAL) 08/08/19 04/26/21 [facility] [address] [facility] [place] [address] Pharmacist Pharmacist 10/14/19 12/01/20 Eduardo Sharma MD [address] [facility] [address] [place] [address] Assigned Sleep Provider 04/02/2005/07 [place] [address] [facility] 300 [place] [address] Assigned Musculoskeletal Provider 04/02/20 08/24/20 Marcelo Artis PA-C [address] [facility] 300 [place] [address] Assigned Musculoskeletal Provider 08/25/20 08/20/21 Rodrigo Man PA-C 6545 [facility] [address] [place] [address] Assigned Surgical Provider 08/25/20 11/27/20 Noreen Flores APRN CNP [address] [place] [address] [place] [address] Assigned PCP 08/05/22 03/16/23 Agatha Null DPM, Podiatry/Foot and Ankle Surgery [address] [facility] [address] [place] [address] Assigned Musculoskeletal Provider 11/04/22 [facility] - [facility] [address] [facility] [place] [address] Assigned PCP 07/05/23 documented as of this encounter
--- OUTSIDE RECORDS SUMMARY | 2023-10-19 16:33 | XMS_ITS | Encounter Summary ---
Author Name Unknown Organization [place] Address [address] [place] [address] Care Team Providers Care Fruit Coordinator Name Role Phone Noreen Flores APRN SMASH HAND Unavailable Noreen Flores APRN SMASH HAND Primary Car e Provider Kalyan Galvan Unavailable Unavailable Lashae Trevino [facility] Unavailable [phone] Eduardo Sharma MD Unavailable Rios Monteiro MD Unavailable Marcelo Artis PA-C Unavailable Rodrigo Man PA-C Unavailable [phone] Noreen Flores APRN SMASH HAND Unavailable Sudha Greene NP Primary Care Provider Agatha Null DPM, Podiatry /Foot and Ankle Surgery Unavailable Clinic - [facility] Unavailable Encounter Details Date Type Department Care Team (Late st Contact Info) Description 10/14/2019 [facility] [address] [facility] [address] [place] [address] Lashae Trevino, [facility] 1440 [facility] [place] [address] Social History [...] Answer Date Recorded PHQ-2 Score 2 07/25/2018 [facility] [place] of Occupat ional Health - Occupational Stress [...] Total Score: 9 08/09/19 20 7:03 AM AP OPERATOR documented as of this encounter Care Teams Fruit Coordinator Relationship Specialty Start Date End Date Noreen Flores APRN SMASH HAND [address] [place] [address] [place] [address] PCP - General Nurse Practitioner 01/09/19 12/12/21 Sudha Greene, MAURICIO [address] [address] PCP - General 11/01/22 Noreen Flores APRN SMASH HAND [address] [place] [address] [place] [address] Assigned PCP 06/16/18 05/26/22 Kalyan Galvan Personal Advocate & Liaison (PAL) 08/08/19 04/26/21 Lashae Trevino, [facility] [address] [place] [address] Pharmacist Pharmacist 10/14/19 12/01/20 Eduardo Sharma MD [address] [place] [address] [place] [address] Assigned Sleep Provider 04/02/2005/07 [place] [address] [facility] 300 [place] [address] Assigned Musculoskeletal Provider 04/02/20 08/24/20 Marcelo Artis PA-C [address] [address] Assigned Musculoskeletal Provider 08/25/20 08/20/21 Rodrigo Man PA-C [address] [facility] 450 [place] [address] Assigned Surgical Provider 08/25/20 11/27/20 Noreen Flores APRN SMASH HAND [address] [place] [address] [place] [address] Assigned PCP 08/05/22 03/16/23 Agatha Null DPM, Podiatry/Foot and Ankle Surgery 17244 [facility] 300 [place] [address] Assigned Musculoskeletal Provider 11/04/22 [facility] - [facility] 3305 [place] [address] Assigned PCP 07/05/23 documented as of this encounter
--- OUTSIDE RECORDS SUMMARY | 2023-10-19 16:33 | XMS_ITS | Encounter Summary ---
Author Name Unknown Organization [place] Address [address] [place] [address] Care Team Providers Care Glove Sewer Name Role Phone Noreen Flores APRN, CNP Unavailable Noreen Flores APRN BATT MACHINE OPERATOR Primary Car e Provider Kalyan Galvan Unavailable Unavailable Lashae Trevino [facility] Unavailable [phone] Eduardo Sharma MD Unavailable Rios Monteiro MD Unavailable [phone] Marcelo Artis PA-C Unavailable Rodrigo Man PA-C Unavailable [phone] Noreen Flores APRN BATT MACHINE OPERATOR Unavailable Sudha Greene NP Primary Care Provider Agatha Null DPM, Podiatry /Foot and Ankle Surgery Unavailable Clinic - [facility] Unavailable Reason for Visit * Reason Onset Date Comments Outreach 12/09/2019 Encounter Details Date Type Department Care Team (Late st Contact Info) Description 12/09/2019 Myra Medical Advice [facility] [place] [address] [place] [address] Noreen Flores APRN CNP 3305 [facility] [place] [address] Outreach Social History Tobacco Use Types Packs/Day [...] Answer Date Recorded PHQ-2 Score 2 07/25/2018 [facility] [place] of Occupat ional Health - Occupational Stress [...] Called pharmacy noted that pt did not roll picker the Imitrex 50 mg. Additionally, pharmacy requested that an order be faxed for the Loratadine-d as the e-prescribe didnot transmit to them. Fax number: [phone] Kalyan Galvan, EMT at 9:53 AM on December 11, 2019 [facility] Health Guide [phone] documented in this encounter Plan of Treatment [...] Total Score: 9 08/09/19 20 7:03 AM BARIATRIC PROGRAM COORDINATOR documented as of this encounter Care Teams Glove Sewer Relationship Specialty Start Date End Date Noreen Flores APRN BATT MACHINE OPERATOR [address] [place] [address] [place] [address] PCP - General Nurse Practitioner 01/09/19 12/12/21 Sudha Greene NP [address] [address] PCP - General 11/01/22 Noreen Flores APRN BATT MACHINE OPERATOR [address] [place] [address] [place] [address] Assigned PCP 06/16/18 05/26/22 Kalyan Galvan Personal Advocate & Liaison (PAL) 08/08/19 04/26/21 Lashae Trevino, [facility] [address] [facility] [place] [id number] Pharmacist Pharmacist 10/14/19 12/01/20 Eduardo Sharma MD [address] [place] [address] [place] [address] Assigned Sleep Provider 04/02/2005/07 [place] [address] [place] [address] [place] [address] Assigned Musculoskeletal Provider 04/02/20 08/24/20 Marcelo Artis PA-C [address] [place] [address] [place] [address] Assigned Musculoskeletal Provider 08/25/20 08/20/21 Rodrigo Man PA-C [address] [place] 450 [place] [address] Assigned Surgical Provider 08/25/20 11/27/20 Noreen Flores APRN BATT MACHINE OPERATOR 3305 [facility] [place] [address] Assigned PCP 08/05/22 03/16/23 Agatha Null, DPM, Podiatry/Foot and Ankle Surgery [address] [place] [address] [place] [address] Assigned Musculoskeletal Provider 11/04/22 [facility] - [facility] [place] [address] [place] [address] Assigned PCP 07/05/23 documented as of this encounter
--- OUTSIDE RECORDS SUMMARY | 2023-10-19 16:33 | XMS_ITS | Encounter Summary ---
Author Name Unknown Organization [place] Address [address] [place] [address] Care Team Providers Care Revenue Audit Clerk Name Role Phone Noreen Flores APRN, CNP Unavailable Noreen Flores APRN, CNP Primary Car e Provider Kalyan Galvan Unavailable Unavailable Lashae Trevino [facility] Unavailable [phone] Eduardo Sharma MD Unavailable Rios Monteiro MD Unavailable Marcelo Artis PA-C Unavailable [phone] Rodrigo Mna PA-C Unavailable [phone] Noreen Flores APRN, CNP Unavailable Sudha Greene NP Primary Care Provider Agatha Null DPM, Podiatry /Foot and Ankle Surgery Unavailable Clinic - [facility] Unavailable Reason for Visit * Reason Onset Date Comments Medication Refill 04/25/2019 metFORMIN (GLU COPHAGE) 500 MG tablet Encounter Details Date Type Department Care Team (Late st Contact Info) Description 04/25/2019 Refill [facility] [address] [facility] [address] [place] [address] Noreen Flores APRN CNP [address] [facility] [place] [address] Medication Refill (metFORMIN (GLUCOPHAGE) 500 MG tablet) [...] Kimberley Bryan RN - 04/28/2019 11:47 AM REHABILITATION SERVICES COORDINATOR Routing refill request to provider for review/approval because: Labs not current: LDL, creatinine Due for appointment BILITATION SERVICES COORDINATOR * Telephone Encounter - Lara Villalba - [...] & Orders section of the refill encounter. BILITATION SERVICES COORDINATOR documented in this encounter Plan [...] documented as of this encounter Care Teams Revenue Audit Clerk Relationship Specialty Start Date End Date Noreen Flores APRN GRAVEL WHEELER [address] [place] [address] [place] [address] PCP - General Nurse Practitioner 01/09/19 12/12/21 Sudha Greene NP [facility] - [address] [place] [address] PCP - General 11/01/22 Noreen Flores APRN GRAVEL WHEELER [address] [place] [address] [place] [address] Assigned PCP 06/16/18 05/26/22 Kalyan Galvan Personal Advocate & Liaison (PAL) 08/08/19 04/26/[address] [address] [address] [place] [address] [place] [address] Pharmacist Pharmacist 10/14/19 12/01/20 Eduardo Sharma MD [address] [place] [address] [place] [address] Assigned Sleep Provider 04/02/2005/07 [place] [address] [place] [address] [place] [address] Assigned Musculoskeletal Provider 04/02/20 08/24/20 Marcelo Artis PA-C [address] [place] [address] [place] [address] Assigned Musculoskeletal Provider 08/25/20 08/20/21 Rodrigo Man PA-C [address] [place] [address] [place] 15[address] Assigned Surgical Provider 08/25/20 11/27/20 Noreen Flores APRN GRAVEL WHEELER [address] [place] [address] [place] [address] Assigned PCP 08/05/22 03/16/23 Agatha Null, MARÍA, Podiatry/Foot and Ankle Surgery [address] [place] [address] Assigned Musculoskeletal Provider 11/04/22 Clinic - [facility] [place] [address] [place] [id number] Assigned PCP 07/05/23 documented as of this encounter
--- OUTSIDE RECORDS SUMMARY | 2023-10-19 16:33 | XMS_ITS | Encounter Summary ---
Author Name Unknown Organization [facility] Address [address] [place] [address] Care Team Providers Care Biscuit Maker Name Role Phone Noreen Flores APRN DIABETES EDUCATOR Unavailable Noreen Flores APRN DIABETES EDUCATOR Primary Car e Provider Kalyan Galvan Unavailable Unavailable Lashae Trevino [facility] Unavailable Eduardo Sharma MD Unavailable Rios Monteiro MD Unavailable [phone] Marcelo Artis PA-C Unavailable Rodrigo Man PA-C Unavailable [phone] Noreen Flores APRN, CNP Unavailable Sudha Greene NP Primary Care Provider Agatha Null DPM, Podiatry /Foot and Ankle Surgery Unavailable Clinic - [facility] Unavailable Encounter Details Date Type Department Care Team (Late st Contact Info) Description 05/30/[address] [facility] [address] [facility] [address] [place] [address] Christi Panda MA Social History [...] documented as of this encounter Care Teams Biscuit Maker Relationship Specialty Start Date End Date Noreen Flores APRN DIABETES EDUCATOR 3305 [facility] [place] [address] PCP - General Nurse Practitioner 01/09/19 12/12/21 Sudha Greene NP [address] [address] PCP - General 11/01/22 Noreen Flores APRN DIABETES EDUCATOR [address] [place] [address] [place] [address] Assigned PCP 06/16/18 05/26/22 Kalyan Galvan Personal Advocate & Liaison (PAL) 08/08/19 04/26/21 Lashae Trevino, [facility] [address] [place] [address] Pharmacist Pharmacist 10/14/19 12/01/20 Eduardo Sharma MD [address] [place] [address] [place] [address] Assigned Sleep Provider 04/02/2005/07 [place] [id number] [place] [address] [address] [place] [address] Assigned Musculoskeletal Provider 04/02/20 08/24/20 Marcelo Artis PAMarlon [address] [facility] 300 [place] [address] Assigned Musculoskeletal Provider 08/25/20 08/20/21 Rodrigo Man PA-C [address] [facility] [address] [place] [address] Assigned Surgical Provider 08/25/20 11/27/20 Noreen Flores APRN DIABETES EDUCATOR [address] [place] [address] [place] [id number] Assigned PCP 08/05/22 03/16/23 Agatha Null DPM, Podiatry/Foot and Ankle Surgery [address] [place] [address] [facility] [address] [place] [address] Assigned Musculoskeletal Provider 11/04/22 [facility] - [facility] [address] [facility] DAVID [place] [id number] Assigned PCP 07/05/23 documented as of this encounter
--- OUTSIDE RECORDS SUMMARY | 2023-10-19 16:33 | XMS_ITS | Encounter Summary ---
Author Name Unknown Organization [place] Address [address] [place] [address] Care Team Providers Care Car Ferrier Name Role Phone Noreen Flores APRN ELECTRICAL ENGINEERING DRAFTING OFFICER Unavailable Noreen Flores APRN ELECTRICAL ENGINEERING DRAFTING OFFICER Primary Car e Provider Kalyan Galvan Unavailable Unavailable Lashae Trevino [facility] Unavailable Eduardo Sharma MD Unavailable Rios Monteiro MD Unavailable [phone] Marcelo Artis PA-C Unavailable Rodrigo Man PA-C Unavailable [phone] Noreen Flores APRN, CNP Unavailable Sudha Greene NP Primary Care Provider [phone] Agatha Null DPM, Podiatry /Foot and Ankle Surgery Unavailable Clinic - [facility] Unavailable Reason for Visit * Reason Onset Date Comments Refill Request 06/14/2020 blood glucose mo nitoring (ONE TOUCH DELICA) lancets Refill Request 06/14/2020 blood glucose (A CCU-CHEK JANICE) test strip Encounter Details Date Type Department Care Team (Late st Contact Info) Description 06/14/2020 [facility] [address] [facility] [address] [place] [phone] Jeana-Jd Noreen Sudha, GLOVE PARTS CUTTER ELECTRICAL ENGINEERING DRAFTING OFFICER 3305 [facility] [place] [address] Refill Request (blood glucose monitoring (ONE TOUCH [...] Friends and Family Patient declined 08/08/2019 Attends [employer] Patient declined 07/13 Active Member of [...] Answer Date Recorded PHQ-2 Score 2 07/25/2018 [facility] [place] of Occupat ional Health - Occupational Stress [...] Christy Pelayo RN - 06/16/2020 11:04 AM TECHNOLOGY STRATEGIST Prescription approved per [facility] Refill Protocol. Christy Pelayo RN Flex NOLOGY STRATEGIST * Telephone Encounter - Candy Wilda - 06/14/2020 3:55 PM CST Request from pharmacy states: ONE TOUCH VERIO TEST STRIPS and ONE TOUCH 30G DELICA LNC, NOLOGY STRATEGIST documented in this encounter Plan of Treatment [...] as of this encounter Care Teams Car Ferrier Relationship Specialty Start Date End Date Jeana-Noreen Miles APRN ELECTRICAL ENGINEERING DRAFTING OFFICER [address] [place] [address] [place] [address] PCP - General Nurse Practitioner 01/09/19 12/12/21 Sudha Greene NP [facility] & [address] [address] PCP - General 11/01/22 Noreen Flores APRN ELECTRICAL ENGINEERING DRAFTING OFFICER [address] [place] [address] [place] [address] Assigned PCP 06/16/18 05/26/22 Kalyan Galvan Personal Advocate & Liaison (PAL) 08/08/19 04/26/21 [facility] [address] [place] [address] [place] [address] Pharmacist Pharmacist 10/14/19 12/01/20 Eduardo Sharma MD [address] [place] [address] [place] [address] Assigned Sleep Provider 04/02/2005/07 [place] [address] [facility] [address] [place] [address] [place] [address] Assigned Musculoskeletal Provider 04/02/20 08/24/20 Marcelo Artis PA-C [address] [place] [address] [place] [address] Assigned Musculoskeletal Provider 08/25/20 08/20/21 Rodrigo Man PA-C [address] [place] [address] [place] 85[address] Assigned Surgical Provider 08/25/20 11/27/20 Noreen Flores APRN ELECTRICAL ENGINEERING DRAFTING OFFICER [address] [place] [address] [place] [address] Assigned PCP 08/05/22 03/16/23 Agatha Null, MARÍA, Podiatry/Foot and Ankle Surgery [address] [place] [address] Assigned Musculoskeletal Provider 11/04/22 Clinic - [facility] [place] [address] [id number] Assigned PCP 07/05/23 documented as of this encounter
--- OUTSIDE RECORDS SUMMARY | 2023-10-19 16:33 | XMS_ITS | Encounter Summary ---
Author Name Unknown Organization [place] Address [address] [place] [address] Care Team Providers Care Assessment Counselor Name Role Phone Noreen Flores APRN, CNP Unavailable Noreen Flores APRN, CNP Primary Car e Provider Kalyan Galvan Unavailable Unavailable Lashae Trevino [facility] Unavailable Eduardo Sharma MD Unavailable Rios Monteiro MD Unavailable [phone] Marcelo Artis PA-C Unavailable [phone] Rodrigo Man PA-C Unavailable [phone] Noreen Flores APRN, CNP Unavailable Sudha Greene NP Primary Care Provider [phone] Agatha Null DPM, Podiatry /Foot and Ankle Surgery Unavailable Clinic - [facility] [place] [facility] Unavailable Reason for Visit * Reason Comments Medication Refill Encounter Details Date Type Department Care Team (Late st Contact Info) Description 06/18/2020 Refill [facility] [place] [address] [facility] [address] [place] [phone] Noreen Flores APRN CNP 3305 [facility] [place] [address] Medication Refill Social [...] Desirae Champagne RN - 06/18/2020 10:53 AM UNDERGROUND REPAIRER Prescription approved per [facility] Refill Protocol. Desirae Champagne RN on 06/18/2020 at 10:52 AM RGROUND REPAIRER documented in this encounter Plan of [...] documented as of this encounter Care Teams Assessment Counselor Relationship Specialty Start Date End Date Noreen Flores APRN FLIGHT AGENT [address] [place] [address] [place] [address] PCP - General Nurse Practitioner 01/09/19 12/12/21 Sudha Greene, MAURICIO [address] [address] PCP - General 11/01/22 Noreen Flores APRN FLIGHT AGENT [address] [place] [address] [place] [address] Assigned PCP 06/16/18 05/26/22 Kalyan Galvan Personal Advocate & Liaison (PAL) 08/08/19 04/26/21 Lashae Trevino, [facility] [address] [place] [address] Pharmacist Pharmacist 10/14/19 12/01/20 Eduarod Sharma MD [address] [place] [address] [place] 88[address]15 Assigned Sleep Provider 04/02/2005/07 [place] [address] [facility] [address] [place], [place] [address] Assigned Musculoskeletal Provider 04/02/20 08/24/20 Marcelo Artis PA-C [address] [place] [address] 300 [place] [address] Assigned Musculoskeletal Provider 08/25/20 08/20/21 Rodrigo Man PA-C [address] [place] [address] [place] [address] Assigned Surgical Provider 08/25/20 11/27/20 Noreen Flores APRN CNP [address] [place] [address] [place] [address] Assigned PCP 08/05/22 03/16/23 Agatha Null DPM, Podiatry/Foot and Ankle Surgery [address] [place] [address] [address] [place] [place] [address] Assigned Musculoskeletal Provider 11/04/22 [facility] [address] [facility] DAV[place] [address] Assigned PCP 07/05/23 documented as of this encounter
--- OUTSIDE RECORDS SUMMARY | 2023-10-19 16:33 | XMS_ITS | Encounter Summary ---
Author Name Unknown Organization [place] Address [address] [place] [address] Care Team Providers Care Knockout Worker Name Role Phone Noreen Flores APRN EXTERN Unavailable Noreen Flores APRN EXTERN Primary Car e Provider Kalyan Galvan Unavailable Unavailable Lashae Trevino [facility] Unavailable [phone] Eduardo Sharma MD Unavailable Rios Monteiro MD Unavailable [phone] Marcelo Artis PA-C Unavailable [phone] Rodrigo Man PA-C Unavailable [phone] Noreen Flores APRN, CNP Unavailable Sudha Greene NP Primary Care Provider Agatha Null DPM, Podiatry /Foot and Ankle Surgery Unavailable Clinic - [place] [facility] Unavailable Encounter Details Date Type Department Care Team (Late st Contact Info) Description 10/06/2019 [facility] Lucy Moya [facility] Neurosurgery Clinic [address] [address] Patricia Bonilla Social History Tobacco [...] Answer Date Recorded PHQ-2 Score 2 07/25/2018 [facility] [place] of Occupat ional Health - Occupational Stress [...] Total Score: 9 08/09/19 20 7:03 AM BEEF SPLITTER documented as of this encounter Care Teams Knockout Worker Relationship Specialty Start Date End Date Noreen Flores APRN EXTERN [address] [place] [address] [place] [address] PCP - General Nurse Practitioner 01/09/19 12/12/21 Sudha Greene NP [address] [address] PCP - General 11/01/22 Noreen Flores APRN EXTERN [address] [place] [address] [place] [address] Assigned PCP 06/16/18 05/26/22 Kalyan Galvan Personal Advocate & Liaison (PAL) 08/08/19 04/26/21 Lashae Trevino [facility] [address] [facility] [place] [address] Pharmacist Pharmacist 10/14/19 12/01/20 Eduardo Sharma MD [address] [facility] [address] [place] [address] Assigned Sleep Provider 04/02/2005/07 [place] [address] [facility] 300 [place] [address] Assigned Musculoskeletal Provider 04/02/20 08/24/20 Marcelo Artis PA-C [address] [facility] [address] [place] [address] Assigned Musculoskeletal Provider 08/25/20 08/20/21 Rdorigo Man PA-C 6545 [facility] 450 [place] [address] Assigned Surgical Provider 08/25/20 11/27/20 Noreen Flores APRN EXTERN [address] [place] [address] [place] [address] Assigned PCP 08/05/22 03/16/23 Agatha Null DPM, Podiatry/Foot and Ankle Surgery [address] [facility] 300 [place] [address] Assigned Musculoskeletal Provider 11/04/22 [facility] - [place] [facility] 3[address] [facility] [place] [id number] Assigned PCP 07/05/23 documented as of this encounter
--- OUTSIDE RECORDS SUMMARY | 2023-10-19 16:33 | XMS_ITS | Encounter Summary ---
Author Name Unknown Organization [place] Address [address] [place] [address] Care Team Providers Care Regional Sales Representative Name Role Phone Noreen Flores APRN, CNP Unavailable Noreen Flores APRN, CNP Primary Car e Provider Kalyan Galvan Unavailable Unavailable Lashae Trevino [facility] Unavailable [phone] Eduardo Sharma MD Unavailable Rios Monteiro MD Unavailable [phone] Marcelo Artis PA-C Unavailable [phone] Rodrigo Man PA-C Unavailable [phone] Noreen Flores APRN, CNP Unavailable Sudha Greene NP Primary Care Provider Agatha Null DPM, Podiatry /Foot and Ankle Surgery Unavailable Clinic - [place] [facility] Unavailable Reason for Visit * Reason Onset Date Comments Refill Request 05/29/2020 omeprazole (PRIL OSEC) [address] capsule Encounter Details Date Type Department Care Team (Late st Contact Info) Description 05/29/2020 Refill M [facility] [address] [facility] [address] [place] [address] Noreen Flores APRN ASSISTANT PROSECUTING ATTORNEY [address] [place] [address] Refill Request (omeprazole (PRILOSEC) [address] [...] Date Recorded PHQ-2 Score 2 07/25/2018 [facility] [place] of Occupat ional Health - Occupational Stress [...] Keyona Mantilla RN - 05/31/2020 10:42 AM ACOUSTICAL INSTALLER Patient has refills remaining with requesting pharmacy. Keyona Palacios - Registered Nurse [facility] STICAL INSTALLER * Telephone Encounter - Kartik Javier - 05/29/2020 5:01 PM CST Alternative Requested: Insurance covers max 90 days in a year. Please submit PA to continue therapy. STICAL INSTALLER documented in this encounter Plan of [...] as of this encounter Care Teams Regional Sales Representative Relationship Specialty Start Date End Date Noreen Flores APRN ASSISTANT PROSECUTING ATTORNEY [address] [place] [address] [place] [address] PCP - General Nurse Practitioner 01/09/19 12/12/21 Sudha Greene NP [address] [address] PCP - General 11/01/22 Noreen Flores APRN ASSISTANT PROSECUTING ATTORNEY [address] [place] [address] [place] [address] Assigned PCP 06/16/18 05/26/22 Kalyan Galvan Personal Advocate & Liaison (PAL) 08/08/19 04/26/21 Lashae Trevino, [facility] 1440 [facility] [place] [phone] Pharmacist Pharmacist 10/14/19 12/01/20 Eduardo Sharma MD [address] [place] [address] [place] 576475 Assigned Sleep Provider 04/02/2005/07 [place] [address] [place] [address] [place] [address] Assigned Musculoskeletal Provider 04/02/20 08/24/20 Marcelo Artis PA-C [address] [place] [address] [place] [address] Assigned Musculoskeletal Provider 08/25/20 08/20/21 Rodrigo Man PA-C [address] [place] [address] [place] [address] Assigned Surgical Provider 08/25/20 11/27/20 Noreen Flores APRN ASSISTANT PROSECUTING ATTORNEY [address] [facility] [place] [address] Assigned PCP 08/05/22 03/16/23 Agatha Null, DPM, Podiatry/Foot and Ankle Surgery [address] [facility] 300 [place] [address] Assigned Musculoskeletal Provider 11/04/22 [facility] - [place] 30 [place] [address] Assigned PCP 07/05/23 documented as of this encounter
--- OUTSIDE RECORDS SUMMARY | 2023-10-19 16:34 | XMS_ITS | Encounter Summary ---
Author Name Unknown Organization [facility] Address [address] [place] [address] Care Team Providers Care Senior Cost Estimator Name Role Phone Vanda Guerrero MD Primary Care Provider [phone] Vanda Guerrero MD Unavailable [phone] Jeana-Noreen Miles APRN LIQUID FERTILIZER SERVICER Unavailable [facility]-Noreen Miles APRN LIQUID FERTILIZER SERVICER Unavailable [facility]-JdNoreen castro APRN LIQUID FERTILIZER SERVICER Primary Car e Provider Kalyan Galvan Unavailable Unavailable Lashae Trevino [facility] Unavailable [phone] Eduardo Sharma MD Unavailable Rios Monteiro MD Unavailable [phone] Marcelo Atris PA-C Unavailable Rodrigo ManC Unavailable Jeana-JdNoreen castro APRN LIQUID FERTILIZER SERVICER Unavailable Sudha Greene NP Primary Care Provider Agatha Null DPM, Podiatry /Foot and Ankle Surgery Unavailable [facility] [place] [facility] Unavailable Reason for Visit * Reason Onset Date Comments Derm Problem 01/20/2016 Encounter Details Date Type Department Care Team (Late st Contact Info) Description 01/20/[address] [address] [place] [address] [place] [address] Vanda Guerrero MD [address] [place] [address] [place] [address] Derm Problem Social History Tobacco Use Types [...] as of this encounter Care Teams Senior Cost Estimator Relationship Specialty Start Date End Date Vanda Guerrero MD [address] [place] [address] [place] [address] PCP - General Internal Medicine 04/08/15 01/08/19 Vanda Guerrero MD [address] [place] [address] [place] [address] PCP - Assigned PCP 07/24/16 06/15/18 Noreen Flores APRN LIQUID FERTILIZER SERVICER [address] [place] [address] [place] [address] PCP - Assigned PCP 06/16/18 08/13/18 Noreen Flores APRN LIQUID FERTILIZER SERVICER [facility] [place] [address] PCP - General Nurse Practitioner 01/09/19 12/12/21 Sudha Greene NP [address] [address] PCP - General 11/01/22 Noreen Flores APRN LIQUID FERTILIZER SERVICER [address] [facility] [place] [address] Assigned PCP 06/16/18 05/26/22 Kalyan Galvan Personal Advocate & Liaison (PAL) 08/08/19 04/26/21 Lashae Trevino, [facility] [address] [place] [address] [place] [address] Pharmacist Pharmacist 10/14/19 12/01/20 Eduardo Sharma MD [address] [place] [address] [place] 413695 Assigned Sleep Provider 04/02/2005/07 [place] [address] [facility] 300 [place] [address] Assigned Musculoskeletal Provider 04/02/20 08/24/20 Marcelo Artis PA-C 22020 [facility] [place] 300 [place] [address] Assigned Musculoskeletal Provider 08/25/20 08/20/21 Rodrigo Man PA-C [address] [place] [address] [place] [address] Assigned Surgical Provider 08/25/20 11/27/20 Noreen Flores APRN LIQUID FERTILIZER SERVICER [address] [facility] [place] [address] Assigned PCP 08/05/22 03/16/23 Agatha Null DPM, Podiatry/Foot and Ankle Surgery [address] [place] [address] Assigned Musculoskeletal Provider 11/04/22 [facility] - [facility] [place] [facility] 3305 [facility] [place] [address] Assigned PCP 07/05/23 documented as of this encounter
--- OUTSIDE RECORDS SUMMARY | 2023-10-19 16:34 | XMS_ITS | Encounter Summary ---
Author Name Unknown Organization [place] Address [address] [place] [address] Care Team Providers Care Client Evaluator Name Role Phone Vanda Guerrero MD Primary Care Provider [phone] Vanda Guerrero MD Unavailable [phone] Jeana-Noreen Miles APRN DATA ANALYTICS CHIEF SCIENTIST Unavailable [facility]-Noreen Miles APRN DATA ANALYTICS CHIEF SCIENTIST Unavailable [facility]-JdNoreen castro APRN DATA ANALYTICS CHIEF SCIENTIST Primary Car e Provider Kalyan Galvan Unavailable Unavailable Lashae Trevino [facility] Unavailable Eduardo Sharma MD Unavailable Rios Monteiro MD Unavailable [phone] Marcelo Artis PA-C Unavailable Rodrigo ManC Unavailable Jeana-JdNoreen castro APRN DATA ANALYTICS CHIEF SCIENTIST Unavailable Sudha Greene NP Primary Care Provider [phone] Agatha Null DPM, Podiatry /Foot and Ankle Surgery Unavailable [facility] [place] [facility] Unavailable Reason for Visit * Reason Onset Date Comments MyChart Communication 02/05/2018 Encounter Details Date Type Department Care Team (Late st Contact Info) Description 02/05/2018 [facility] [place] [address] [place] [address] [address] [place] [address] Vanda Guerrero MD [address] [place] [address] [place] [address] MyChart Communication Social History Tobacco Use Types [...] Total Score: 12 06/12/ 018 1:02 PM PENCILLER documented as of this encounter Care Teams Client Evaluator Relationship Specialty Start Date End Date Vanda Guerrero MD [address] [place] [address] [place] [address] PCP - General Internal Medicine 04/08/15 01/08/19 Vanda Guerrero MD [address] [place] [address] [place] [address] PCP - Assigned PCP 07/24/16 06/15/18 Noreen Flores APRN DATA ANALYTICS CHIEF SCIENTIST [address] [place] [address] [place] [address] PCP - Assigned PCP 06/16/18 08/13/18 Noreen Flores APRN DATA ANALYTICS CHIEF SCIENTIST [address]305 [facility] [place] [address] PCP - General Nurse Practitioner 01/09/19 12/12/21 Sudha Greene NP [address] [address] PCP - General 11/01/22 [facility] DATA ANALYTICS CHIEF SCIENTIST [address] [place] [address] [place] [address] Assigned PCP 06/16/18 05/26/22 Kalyan Galvan Personal Advocate & Liaison (PAL) 08/08/19 04/26/21 [facility] [address] [place] [address] [place] [address] Pharmacist Pharmacist 10/14/19 12/01/20 Eduardo Sharma MD [address] [place] [address] [place] [address] Assigned Sleep Provider 04/02/2005/07 [place] [address] [facility] 300 [place] [address] Assigned Musculoskeletal Provider 04/02/20 08/24/20 Marcelo Artis PA-C [address] [facility] [place] 300 [place] [address] Assigned Musculoskeletal Provider 08/25/20 08/20/21 Rodrigo Man PA-C [address] [place] [address] [place] [address] Assigned Surgical Provider 08/25/20 11/27/20 Noreen Flores APRN DATA ANALYTICS CHIEF SCIENTIST 3305 [facility] [place] [address] Assigned PCP 08/05/22 03/16/23 Agatha Null DPM, Podiatry/Foot and Ankle Surgery [address] [place] [address] [place] [address] Assigned Musculoskeletal Provider 11/04/22 Clinic - [facility] [place] [facility] 3305 [facility] [place] [address] Assigned PCP 07/05/23 documented as of this encounter
--- OUTSIDE RECORDS SUMMARY | 2023-10-19 16:34 | XMS_ITS | Encounter Summary ---
Author Name Unknown Organization [facility] Address [address] [place] [address] Care Team Providers Care Partnership Marketing Manager Name Role Phone Vanda Guerrero MD Primary Care Provider [phone] Noreen Flores APRN CRANE ASSEMBLER Unavailable Noreen Flores APRN CRANE ASSEMBLER Primary Car e Provider Kalyan Galvan Unavailable Unavailable Lashae Trevino [facility] Unavailable [phone] Eduardo Sharma MD Unavailable Rios Monteiro MD Unavailable Marcelo Artis PA-C Unavailable Rodrigo Man PA-C Unavailable [phone] Noreen Flores APRN CRANE ASSEMBLER Unavailable Sudha Greene NP Primary Care Provider [phone] Agatha Null DPM, Podiatry /Foot and Ankle Surgery Unavailable Clinic - [place] [facility] Unavailable Encounter Details Date Type Department Care Team (Late st Contact Info) Description 12/09/[address] [facility] [address] [facility] [address] [place] [address] Christi Panda MA Social History Tobacco [...] Depression Total Score: 7 06/25/19 9:49 AM STITCH CLEANER documented as of this encounter Care Teams Partnership Marketing Manager Relationship Specialty Start Date End Date Vanda Guerrero MD [address] [place] [address] [place] [address] PCP - General Internal Medicine 04/08/15 01/08/19 Noreen Flores APRN CRANE ASSEMBLER [address] [place] [address] [place] [address] PCP - General Nurse Practitioner 01/09/19 12/12/21 Sudha Greene NP [address] [address] PCP - General 11/01/22 Noreen Flores APRN CRANE ASSEMBLER [address] [place] [address] [place] [address] Assigned PCP 06/16/18 05/26/22 Kalyan Galvan Personal Advocate & Liaison (PAL) 08/08/19 04/26/21 [facility] [place] [address] Pharmacist Pharmacist 10/14/19 12/01/20 Eduardo Sharma MD [address] [place] [address] [place] 562075 Assigned Sleep Provider 04/02/2005/07 [place] [address] [place] [address] 300 [place] 413427 Assigned Musculoskeletal Provider 04/02/20 08/24/20 Marcelo Artis PA-C [address] [place] [address] 300 [place] [address] Assigned Musculoskeletal Provider 08/25/20 08/20/21 Rodrigo Man PA-C [address] [place] [address] [place] [address] Assigned Surgical Provider 08/25/20 11/27/20 Noreen Flores APRN CRANE ASSEMBLER [address] [place] [address] [place] [address] Assigned PCP 08/05/22 03/16/23 Agatha Null DPM, Podiatry/Foot and Ankle Surgery [address] [place] [address] [place] [address] Assigned Musculoskeletal Provider 11/04/22 [facility] - [place] [facility] 3305 [facility] [place] [address] Assigned PCP 07/05/23 documented as of this encounter
--- OUTSIDE RECORDS SUMMARY | 2023-10-19 16:34 | XMS_ITS | Encounter Summary ---
Author Name Unknown Organization [place] Address [address] [place] [address] Care Team Providers Care Electronics Inspector Name Role Phone Vanda Guerrero MD Primary Care Provider [phone] Noreen Flores APRN STUNT PERSON Unavailable Noreen Flores APRN, CNP Primary Car e Provider Kalyan Galvan Unavailable Unavailable Lashae Trevino [facility] Unavailable Eduardo Sharma MD Unavailable Rios Monteiro MD Unavailable Marcelo Artis PA-C Unavailable Rodrigo Man PA-C Unavailable [phone] Noreen Flores APRN STUNT PERSON Unavailable Sudha Greene NP Primary Care Provider Agatha Null DPM, Podiatry /Foot and Ankle Surgery Unavailable Clinic - [place] [facility] Unavailable Encounter Details Date Type Department Care Team (Late st Contact Info) Description 12/05/2018 [facility] Lucy Moya [facility] [place] [address] [place] [address] Noreen Flores APRN CNP 3305 [facility] [place] [address] Social History Tobacco Use Types Packs/Day Years [...] Depression Total Score: 7 06/25/19 9:49 AM HEALTH SPA MANAGER documented as of this encounter Care Teams Electronics Inspector Relationship Specialty Start Date End Date Vanda Guerrero MD [address] [place] [address] [place] [address] PCP - General Internal Medicine 04/08/15 01/08/19 Noreen Flores APRN STUNT PERSON [address] [place] [address] [place] [address] PCP - General Nurse Practitioner 01/09/19 12/12/21 Sudha Greene NP [address] [address] PCP - General 11/01/22 Noreen Flores APRN STUNT PERSON [address] [place] [address] [place] [address] Assigned PCP 06/16/18 05/26/22 Kalyan Galvan Personal Advocate & Liaison (PAL) 08/08/19 04/26/21 Lashae Trevino [facility] 1440 [facility] [place] [address] Pharmacist Pharmacist 10/14/19 12/01/20 Eduardo Sharma MD [address] [place] [address] [place], [place] 577475 Assigned Sleep Provider 04/02/2005/07 [place] [address] [facility] 300 [place] [address] Assigned Musculoskeletal Provider 04/02/20 08/24/20 Marcelo Artis PA-C [address] [facility] 300 [place] [address] Assigned Musculoskeletal Provider 08/25/20 08/20/21 Rodrigo Man PA-C [address] [place] [address] [place], [place] [address] Assigned Surgical Provider 08/25/20 11/27/20 Noreen Flores APRN STUNT PERSON [address] [facility] [place] [address] Assigned PCP 08/05/22 03/16/23 Agatha Null, DPM, Podiatry/Foot and Ankle Surgery [address] [facility] 300 [place], [place] 398227 Assigned Musculoskeletal Provider 11/04/22 Clinic - [place] [address] [address] Assigned PCP 07/05/23 documented as of this encounter
--- OUTSIDE RECORDS SUMMARY | 2023-10-19 16:34 | XMS_ITS | Encounter Summary ---
Author Name Unknown Organization [place] Address [address] [place] [address] Care Team Providers Care Hull And Deck Remover Name Role Phone Vanda Guerrero MD Primary Care Provider [phone] Vanda Guerrero MD Unavailable [phone] Jeana-Noreen Miles APRN DIRECTOR VOICE Unavailable [facility]-Noreen Miles APRN DIRECTOR VOICE Unavailable [facility]-JdNoreen castro APRN DIRECTOR VOICE Primary Car e Provider Kalyan Galvan Unavailable Unavailable Lashae Trevino [facility] Unavailable Eduardo Sharma MD Unavailable Rios Monteiro MD Unavailable Marcelo Artis PA-C Unavailable Rodrigo Man PA-C Unavailable Jeana-Noreen Miles APRN DIRECTOR VOICE Unavailable Sudha Greene NP Primary Care Provider [phone] Agatha Null DPM, Podiatry /Foot and Ankle Surgery Unavailable [facility] [place] [facility] Unavailable Reason for Visit * Reason Onset Date Comments Patient/info Update 05/01/2016 foot prob Encounter Details Date Type Department Care Team (Late st Contact Info) Description 05/01/2016 MyC Medical Advice [facility] [address] [place] [address] Agatha Null DPM, Podiatry/Foot and Ankle Surgery [address] [address] Patient/info Update (foot prob) Social History Tobacco [...] Start Date End Date Vanda Guerrero MD [address] [place] [address] [place] [address] PCP - General Internal Medicine 04/08/15 01/08/19 Vanda Guerrero MD [address] [place] [address] [place] [address] PCP - Assigned PCP 07/24/16 06/15/18 Noreen Flores APRN DIRECTOR VOICE [address] [place] [address] [place] [address] PCP - Assigned PCP 06/16/18 08/13/18 Noreen Flores APRN DIRECTOR VOICE [address] [place] [address] [place] [address] PCP - General Nurse Practitioner 01/09/19 12/12/21 Sudha Greene, [place] [address] [address] PCP - General 11/01/22 Noreen [place] APRN DIRECTOR VOICE [address] [place] [address] [place] [address] Assigned PCP 06/16/18 05/26/22 Kalyan Galvan Personal Advocate & Liaison (PAL) 08/08/19 04/26/21 [facility] [address] [place] [address] [place] [address] Pharmacist Pharmacist 10/14/19 12/01/20 Eduardo Sharma MD [address] [address] Assigned Sleep Provider 04/02/2005/07 Rios Monteiro MD [address] [place] [address] Assigned Musculoskeletal Provider 04/02/20 08/24/20 Marcelo Artis PA-C [address] [address] Assigned Musculoskeletal Provider 08/25/20 08/20/21 Rodrigo Man PA-C [address] [place] [address] [place] [address] Assigned Surgical Provider 08/25/20 11/27/20 Noreen Flores APRN DIRECTOR VOICE 3305 [facility] [place] [address] Assigned PCP 08/05/22 03/16/23 Agatha Null DPM, Podiatry/Foot and Ankle Surgery [address] [place] [address] [place] [address] Assigned Musculoskeletal Provider 11/04/22 Clinic - [place] [facility] 3305 [facility] [place] [id number] Assigned PCP 07/05/23 documented as of this encounter
--- OUTSIDE RECORDS SUMMARY | 2023-10-19 16:34 | XMS_ITS | Encounter Summary ---
Author Name Unknown Organization [place] Address [address] [place] [address] Care Team Providers Care Irrigation Supervisor Name Role Phone Vanda Guerrero MD Primary Care Provider [phone] Vanda Guerrero MD Unavailable [phone] Jeana-Noreen Miles APRN FIELD CLERK Unavailable Jeana-Noreen Miles APRN FIELD CLERK Unavailable Jeana-JdNoreen castro APRN FIELD CLERK Primary Car e Provider Kalyan Galvan Unavailable Unavailable Lashae Trevino [facility] Unavailable Eduardo Sharma MD Unavailable Rios Monteiro MD Unavailable Marcelo Artis PA-C Unavailable [phone] Rodrigo Man PA-C Unavailable Jeana-JdNoreen castro APRN FIELD CLERK Unavailable Sudha Greene NP Primary Care Provider Agatha Null DPM, Podiatry /Foot and Ankle Surgery Unavailable [facility] Unavailable Encounter Details Date Type Department Care Team (Late st Contact Info) Description 02/11/[address] [place] [phone] Vanda Guerrero MD [address] [place] [address] [place] [address] Social History Tobacco Use Types Packs/Day Years [...] documented as of this encounter Care Teams Irrigation Supervisor Relationship Specialty Start Date End Date Vanda Guerrero MD [address] [place] [address] [place] [address] PCP - General Internal Medicine 04/08/15 01/08/19 Vanda Guerrero MD [address] [place] [address] [place] [address] PCP - Assigned PCP 07/24/16 06/15/18 Noreen Flores APRN FIELD CLERK [address] [place] [address] [place] [address] PCP - Assigned PCP 06/16/18 08/13/18 Noreen Flores APRN FIELD CLERK [address] [place] [address] [place] [address] PCP - General Nurse Practitioner 01/09/19 12/12/[address] [facility] [address] [place] [address] PCP - General 11/01/22 Noreen Flores APRN FIELD CLERK [address] [place] [address] [place] [address] Assigned PCP 06/16/18 05/26/22 Kalyan Galvan Personal Advocate & Liaison (PAL) 08/08/19 04/26/21 Lashae Trevino, [facility] [address] [place] [address] [place] [address] Pharmacist Pharmacist 10/14/19 12/01/20 Eduardo Sharma MD [address] [place] [address] Assigned Sleep Provider 04/02/2005/07 [place] [address] [facility] [address] [place] [address] Assigned Musculoskeletal Provider 04/02/20 08/24/20 Marcelo Artis PA-C [address] [place] [address] Assigned Musculoskeletal Provider 08/25/20 08/20/21 Rodrigo Man PA-C [address] [address] [place] [address] Assigned Surgical Provider 08/25/20 11/27/20 Noreen Flores APRN FIELD CLERK [address] [facility] [place] [address] Assigned PCP 08/05/22 03/16/23 Agatha Null DPM, Podiatry/Foot and Ankle Surgery [address] [place] [address] Assigned Musculoskeletal Provider 11/04/22 Clinic - [place] [facility] [address] [facility] [place] [id number] Assigned PCP 07/05/23 documented as of this encounter
--- OUTSIDE RECORDS SUMMARY | 2023-10-19 16:34 | XMS_ITS | Encounter Summary ---
Author Name Unknown Organization [place] Address [address] [place] [address] Care Team Providers Care Tour Driver Name Role Phone Noreen Flores APRN SPONGE BUFFER Unavailable Noreen Flores APRN SPONGE BUFFER Primary Car e Provider Kalyan Galvan Unavailable Unavailable Lashae Trevino [facility] Unavailable [phone] Eduardo Sharma MD Unavailable Rios Monteiro MD Unavailable [phone] Marcelo Artis PA-C Unavailable Rodrigo Man PA-C Unavailable [phone] Noreen Flores APRN, CNP Unavailable Sudha Greene NP Primary Care Provider Agatha Null DPM, Podiatry /Foot and Ankle Surgery Unavailable Clinic - [facility] [place] [facility] Unavailable Encounter Details Date Type Department Care Team (Late st Contact Info) Description 01/22/[address] [facility] [place] [address] [facility] [address] [place] [address] Marcelo Trejo, PT [address] [place] [address] Social History Tobacco Use Types [...] as of this encounter Care Teams Tour Driver Relationship Specialty Start Date End Date Noreen Flores APRN SPONGE BUFFER [address] [place] [address] [place] [address] PCP - General Nurse Practitioner 01/09/19 12/12/21 Sudha Greene, MAURICIO [address] [address] PCP - General 11/01/22 Noreen Flores APRN SPONGE BUFFER [address] [place] [address] [place] [address] Assigned PCP 06/16/18 05/26/22 Kalyan Galvan Personal Advocate & Liaison (PAL) 08/08/19 04/26/21 Lashae Trevino, [facility] [place] [address] Pharmacist Pharmacist 10/14/19 12/01/20 Eduardo Sharma MD [address] [place] [place] [address] Assigned Sleep Provider 04/02/2005/07 [place] [address] [facility] [address] [place] [address] Assigned Musculoskeletal Provider 04/02/20 08/24/20 Marcelo Artis PA-C [address] [facility] [address] [place] [address] Assigned Musculoskeletal Provider 08/25/20 08/20/21 Rodrigo Man PA-C [address] [place] [address] [place] [address] Assigned Surgical Provider 08/25/20 11/27/20 Noreen Flores APRN CNP [address] [place] [address] [place] [address] Assigned PCP 08/05/22 03/16/23 Agatha Null DPM, Podiatry/Foot and Ankle Surgery [address] [place] [address] [address] [place] [address] Assigned Musculoskeletal Provider 11/04/22 [facility] [address] [place] [address] [place] [address] Assigned PCP 07/05/23 documented as of this encounter
--- OUTSIDE RECORDS SUMMARY | 2023-10-19 16:34 | XMS_ITS | Encounter Summary ---
Author Name Unknown Organization [place] Address [address] [place] [address] Care Team Providers Care Regrinder Operator Name Role Phone Vanda Guerrero MD Primary Care Provider [phone] Vanda Guerrero MD Unavailable [phone] Jeana-Noreen Miles APRN NURSERY MANAGER Unavailable [facility]en Miles APRN NURSERY MANAGER Unavailable Jeana-Noreen Miles PATIENT ADMITTING CLERK NURSERY MANAGER Primary Car e Provider Kalyan Galvan Unavailable Unavailable Lashae Trevino [facility] Unavailable [phone] Eduardo Sharma MD Unavailable Rios Monteiro MD Unavailable [phone] Marcelo Artis PA-C Unavailable [phone] Rodrigo ManC Unavailable [phone] Jeana-Noreen Miles APRN NURSERY MANAGER Unavailable Sudha Greene NP Primary Care Provider Agatha Null DPM, Podiatry /Foot and Ankle Surgery Unavailable [facility] - [place] [facility] Unavailable Encounter Details Date Type Department Care Team (Late st Contact Info) Description 02/17/2018 [facility] [address] [phone] Liya Gonzalez RN Social History Tobacco Use [...] documented as of this encounter Care Teams Regrinder Operator Relationship Specialty Start Date End Date Vanda Guerrero MD [address] [place] [address] [place] [address] PCP - General Internal Medicine 04/08/15 01/08/19 Vanda Guerrero MD [address] [place] [address] [place] [address] PCP - Assigned PCP 07/24/16 06/15/18 Noreen Flores APRN NURSERY MANAGER [address] [place] [address] [place] [address] PCP - Assigned PCP 06/16/18 08/13/18 Noreen Flores APRN NURSERY MANAGER [address] [place] [address] [place] [address] PCP - General Nurse Practitioner 01/09/19 12/12/21 Sudha Greene NP [address] [address] PCP - General 11/01/22 Noreen Flores APRN NURSERY MANAGER [address] [place] [address] [place] [address] Assigned PCP 06/16/18 05/26/22 Kalyan Galvan Personal Advocate & Liaison (PAL) 08/08/19 04/26/21 Lashae Trevino, [facility] [address] [place] [address] [place] [phone] Pharmacist Pharmacist 10/14/19 12/01/20 Eduardo Sharma MD [address] [place] [address] [place] [address] Assigned Sleep Provider 04/02/2005/07 [place] [address] [place] [address] Assigned Musculoskeletal Provider 04/02/20 08/24/20 Marcelo Artis PA-C [address] [place] [address] [place] [address] Assigned Musculoskeletal Provider 08/25/20 08/20/21 Rodrigo Man PA-C [address] [place] [address] [place] [address] Assigned Surgical Provider 08/25/20 11/27/20 Noreen Flores APRN NURSERY MANAGER [address] [facility] [place] [address] Assigned PCP 08/05/22 03/16/23 Agatha Null DPM, Podiatry/Foot and Ankle Surgery [address] [place] [address] Assigned Musculoskeletal Provider 11/04/22 [facility] - [place] [facility] [address] [facility] [place] [address] Assigned PCP 07/05/23 documented as of this encounter
--- OUTSIDE RECORDS SUMMARY | 2023-10-19 16:34 | XMS_ITS | Encounter Summary ---
Author Name Unknown Organization [place] Address [address] [place] [address] Care Team Providers Care Battery Charger Conveyor Line Name Role Phone Vanda Guerrero MD Primary Care Provider [phone] Vanda Guerrero MD Unavailable [phone] Jeana-Noreen Miles APRN OXIDE FURNACE TENDER Unavailable [facility] APRN OXIDE FURNACE TENDER Unavailable [facility]-JdNoreen castro APRN OXIDE FURNACE TENDER Primary Car e Provider Kalyan Galvan Unavailable Unavailable Lashae Trevino [facility] Unavailable Eduardo Sharma MD Unavailable Rios Monteiro MD Unavailable Marcelo Artis PA-C Unavailable Rodrigo ManC Unavailable Jeana-JdNoreen castro APRN OXIDE FURNACE TENDER Unavailable Sudha Greene NP Primary Care Provider Agatha Null DPM, Podiatry /Foot and Ankle Surgery Unavailable [facility] Unavailable Reason for Visit * Reason Onset Date Comments Refill Request 03/04/2018 loratadine-pseud oePHEDrine ([facility] ALLERGY RELIEF-D) 10- 240 MG per 24 hr tablet Encounter Details Date Type Department Care Team (Late st Contact Info) Description 03/04/2018 Refill [facility] [address] [facility] [address] [place] [phone] Vanda Guerrero MD [address] [facility] [place] [address] Refill Request (loratadine-pseudoePHED rine ([facility]S ALLERGY RELIEF-D) [...] and in station out basket or on MA/TRAIN CONTROL ELECTRONIC TECHNICIAN/RN desk * Telephone Encounter - Kartik Javier [...] Drug not on the G, P or [facility] refill protocol or controlled substance documented [...] documented as of this encounter Care Teams Battery Charger Conveyor Line Relationship Specialty Start Date End Date Vanda Guerrero MD [address] [place] [address] [place] [address] PCP - General Internal Medicine 04/08/15 01/08/19 Vanda Guerrero MD [address] [place] [address] [place] [address] PCP - Assigned PCP 07/24/16 06/15/18 Noreen Flores APRN OXIDE FURNACE TENDER [address] [place] [address] [place] [address] PCP - Assigned PCP 06/16/18 08/13/18 Noreen Flores APRN OXIDE FURNACE TENDER [address] [place] [address] [place] [address] PCP - General Nurse Practitioner 01/09/19 12/12/21 Sudha Greene NP [address] [address] PCP - General 11/01/22 Noreen Flores APRN OXIDE FURNACE TENDER [address] [place] [address] [place] [address] Assigned PCP 06/16/18 05/26/22 Kalyan Galvan Personal Advocate & Liaison (PAL) 08/08/19 04/26/21 [facility] [address] [facility] [place] [address] Pharmacist Pharmacist 10/14/19 12/01/20 Eduardo Sharma MD [address] [place] [address] Assigned Sleep Provider 04/02/2005/07 [place] [address] [place] [address] Assigned Musculoskeletal Provider 04/02/20 08/24/20 Marcelo Artis PA-C [address] [place] [address] Assigned Musculoskeletal Provider 08/25/20 08/20/21 Rodrigo Man PA-C [address] [place] [address] Assigned Surgical Provider 08/25/20 11/27/20 Noreen Flores APRN OXIDE FURNACE TENDER [address] [place] [address] [place] [address] Assigned PCP 08/05/22 03/16/23 Aagtha Null, MARÍA, Podiatry/Foot and Ankle Surgery [address] [place] [address] Assigned Musculoskeletal Provider 11/04/22 [facility] [address] [address] Assigned PCP 07/05/23 documented as of this encounter
--- OUTSIDE RECORDS SUMMARY | 2023-10-19 16:34 | XMS_ITS | Encounter Summary ---
Author Name Unknown Organization [place] Address [address] [place] [address] Care Team Providers Care Supervisor [employer] Name Role Phone Vanda Guerrero MD Primary Care Provider [phone] Vanda Guerrero MD Unavailable [phone] Jeana-Noreen Miles APRN SCREENING UNIT REGISTERED NURSE Unavailable [facility] Miles APRN SCREENING UNIT REGISTERED NURSE Unavailable [facility]-JdNoreen casrto APRN SCREENING UNIT REGISTERED NURSE Primary Car e Provider Kalyan Galvan Unavailable Unavailable Lashae Trevino [facility] Unavailable Eduardo Sharma MD Unavailable Rios Monteiro MD Unavailable Marcelo Artis PA-C Unavailable Rodrigo Man PA-C Unavailable Jeana-JdNoreen castro APRN SCREENING UNIT REGISTERED NURSE Unavailable Sudha Greene NP Primary Care Provider Agatha Null DPM, Podiatry /Foot and Ankle Surgery Unavailable [facility] Unavailable Reason for Visit * Reason Comments Medication Refill simvastatin (ZOCOR) 20 MG tablet Encounter Details Date Type Department Care Team (Late st Contact Info) Description 02/15/2017 Refill [facility] [address] [place] [address] Vanda Guerrero MD [address] [facility] [place] [address] Medication Refill (simvastatin (ZOCOR) 20 MG tablet) [...] Last Office Visit with [facility], [facility] or [facility] prescribing provider: 09/25/2016 Lab Results Component Value [...] 178 <200 mg/dL 02/17/2017 2:14 PM CDT [facility] Triglycerides 121 <150 mg/dL 02/17/2017 2:14 PM CDT [facility] Comment:Fasting specimen HDL Cholesterol 43(L) >49 mg/dL 7 2:14 PM CDT [facility] LDL Cholesterol Calculated 111(H) <100 mg/dL 02/17/2017 2:14 PM CDT [facility] Comment: Above desirable: ??100-129 mg/dl Borderline High: ??130-159 mg/dL High: ? 160-189 mg/dL Very high: ? >189 mg/dl Non HDL Cholesterol 135(H) <130 mg/dL 02/17/2017 2:14 PM CDT [facility] Comment: Above Desirable: ??130-159 mg/dl Borderline high: ??160-189 mg/dl High: ? 190-219 mg/dl Very high: ? >219 mg/dl Blood specimen (specimen) 02/17/2017 9:13 AM CDT 02/17/2017 9:18 AM CDT Vanda Guerrero MD LAB - BLOOD ORDER ILDEFONSO [facility] [address] [place] [address] documented in this encounter Visit Diagnoses Diagnosis [...] as of this encounter Care Teams Supervisor [employer] Relationship Specialty Start Date End Date Vanda Guerrero MD [address] [place] [address] [place] [address] PCP - General Internal Medicine 04/08/15 01/08/19 Vanda Guerrero MD [address] [place] [address] [place] [address] PCP - Assigned PCP 07/24/16 06/15/18 Noreen Flores APRN SCREENING UNIT REGISTERED NURSE [address] [place] [address] [place] [address] PCP - Assigned PCP 06/16/18 08/13/18 Noreen Flores APRN SCREENING UNIT REGISTERED NURSE [address] [place] [address] [place] [address] PCP - General Nurse Practitioner 01/09/19 12/12/21 Sudha Greene NP [address] [address] PCP - General 11/01/22 Noreen Flores APRN SCREENING UNIT REGISTERED NURSE [address] [place] [address] [place] [address] Assigned PCP 06/16/18 05/26/22 Kalyan Galvan Personal Advocate & Liaison (PAL) 08/08/19 04/26/21 [facility] [place] [address] Pharmacist Pharmacist 10/14/19 12/01/20 Eduardo Sharma MD [address] [facility] [address] [place] [address]425 Assigned Sleep Provider 04/02/2005/07 Rios Monteiro MD [address] [place] [address] [address] [place] 179207 Assigned Musculoskeletal Provider 04/02/20 08/24/20 Marcelo Artis PA-C [address] [place] [address] [address] [place] [address] Assigned Musculoskeletal Provider 08/25/20 08/20/21 Rodrigo Man PA-C [address] [facility] [address] [place] [address] Assigned Surgical Provider 08/25/20 11/27/20 Noreen Flores APRN SCREENING UNIT REGISTERED NURSE [address] [place] [address] [place] [address] Assigned PCP 08/05/22 03/16/23 Agatha Null DPM, Podiatry/Foot and Ankle Surgery [address] [place] [address] [address] [place] [address] Assigned Musculoskeletal Provider 11/04/22 [facility] - [place] [address] [facility] [place] [address] Assigned PCP 07/05/23 documented as of this encounter
--- OUTSIDE RECORDS SUMMARY | 2023-10-19 16:34 | XMS_ITS | Encounter Summary ---
Author Name Unknown Organization [place] Address [address] [place] [address] Care Team Providers Care Solid Waste Landfill Technician Name Role Phone Vanda Guerrero MD Primary Care Provider [phone] Vanda Guerrero MD Unavailable [phone] Jeana-Noreen Miles APRN SPORTS CENTRE MANAGER Unavailable [facility] Miles APRN SPORTS CENTRE MANAGER Unavailable [facility]-JdNoreen castro APRN SPORTS CENTRE MANAGER Primary Car e Provider Kalyan Galvan Unavailable Unavailable Lashae Trevino [facility] Unavailable Eduardo Sharma MD Unavailable Rios Monteiro MD Unavailable [phone] Marcelo Artis PA-C Unavailable Rodrigo Man PA-C Unavailable [phone] Jeana-JdNoreen castro APRN SPORTS CENTRE MANAGER Unavailable Sudha Greene NP Primary Care Provider Agatha Null DPM, Podiatry /Foot and Ankle Surgery Unavailable [facility] Unavailable Reason for Visit * Reason Onset Date Comments Appointment 11/30/2016 reminder Encounter Details Date Type Department Care Team (Late st Contact Info) Description 11/30/2016 MyC Medical Advice [facility] [address] [place] [phone] Kallie Celaya, RN Appointment (reminder) Social History [...] as of this encounter Care Teams Solid Waste Landfill Technician Relationship Specialty Start Date End Date Vanda Guerrero MD [address] [place] [address] [place] [address] PCP - General Internal Medicine 04/08/15 01/08/19 Vanda Guerrero MD [address] [place] [address] [place] [address] PCP - Assigned PCP 07/24/16 06/15/18 Noreen Flores APRN SPORTS CENTRE MANAGER [address] [place] [address] [place] [address] PCP - Assigned PCP 06/16/18 08/13/18 Noreen Flores APRN SPORTS CENTRE MANAGER [address] [place] [address] [place] [address] PCP - General Nurse Practitioner 01/09/19 12/12/21 Sudha Greene, MAURICIO [address] [address] PCP - General 11/01/22 Noreen Flores APRN SPORTS CENTRE MANAGER [address] [facility] [place] [address] Assigned PCP 06/16/18 05/26/22 Kalyan Galvan Personal Advocate & Liaison (PAL) 08/08/19 04/26/21 Lashae Trevino, [facility] [place] [address] Pharmacist Pharmacist 10/14/19 12/01/20 Eduardo Sharma MD [address] [address] [place] [address] Assigned Sleep Provider 04/02/2005/07 [place] [address] [place] [address] Assigned Musculoskeletal Provider 04/02/20 08/24/20 Marcelo Artis PA-C [address] [place] [address] Assigned Musculoskeletal Provider 08/25/20 08/20/21 Rodrigo Man PA-C [address] [place] [address]27[address] Assigned Surgical Provider 08/25/20 11/27/20 Noreen Flores APRN SPORTS CENTRE MANAGER [address] [facility] [place] [address] Assigned PCP 08/05/22 03/16/23 Agatha Null DPM, Podiatry/Foot and Ankle Surgery [address] [place] [address] Assigned Musculoskeletal Provider 11/04/22 Clinic - [place] [facility] 3[address] [facility] [place] [id number] Assigned PCP 07/05/23 documented as of this encounter
--- OUTSIDE RECORDS SUMMARY | 2023-10-19 16:34 | XMS_ITS | Encounter Summary ---
Author Name Unknown Organization [place] Address [address] [place] [address] Care Team Providers Care Gear Tooth Grinding Machine Operator Name Role Phone Vanda Guerrero MD Primary Care Provider [phone] Vanda Guerrero MD Unavailable [phone] Jeana-Noreen Miles APRN SWEAT BAND SEPARATOR Unavailable [facility]en Miles APRN SWEAT BAND SEPARATOR Unavailable [facility]-JdNoreen castro APRN SWEAT BAND SEPARATOR Primary Car e Provider Kalyan Galvan Unavailable Unavailable Lashae Trevino [facility] Unavailable Eduardo Sharma MD Unavailable Rios Monteiro MD Unavailable Marcelo Artis PA-C Unavailable [phone] Rodrigo ManC Unavailable [facility]ana-Noreen Miles APRN SWEAT BAND SEPARATOR Unavailable Sudha Greene NP Primary Care Provider Agatha Null DPM, Podiatry /Foot and Ankle Surgery Unavailable [facility] Unavailable Reason for Visit * Reason Onset Date Comments Refill Request 08/30/2016 Metformin 500mg tab Encounter Details Date Type Department Care Team (Late st Contact Info) Description 08/30/2016 Refill [facility] [address] [place] [phone] Vanda Guerrero MD [address] [facility] [place] [address] Refill Request (Metformin 500mg tab) Social History [...] Last Office Visit with G, P or [facility] prescribing provider: 06/01/16 BP Readings [...] Total Score: 11 05/02/ 016 7:09 AM COVERER documented as of this encounter Care Teams Gear Tooth Grinding Machine Operator Relationship Specialty Start Date End Date Vanda Guerrero MD [address] [place] [address] [place] [address] PCP - General Internal Medicine 04/08/15 01/08/19 Vanda Guerrero MD [address] [place] [address] [place] [address] PCP - Assigned PCP 07/24/16 06/15/18 Noreen Flores, SEAN SWEAT BAND SEPARATOR [address] [place] [address] [place] [address] PCP - Assigned PCP 06/16/18 08/13/18 Noreen Flores APRN SWEAT BAND SEPARATOR [address] [place] [address] [place] [address] PCP - General Nurse Practitioner 01/09/19 12/12/21 Sudha Greene, MAURICIO [address] [address] PCP - General 11/01/22 Noreen Flores APRN SWEAT BAND SEPARATOR [address] [place] [address] [place] [address] Assigned PCP 06/16/18 05/26/22 Kalyan Galvan Personal Advocate & Liaison (PAL) 08/08/19 04/26/21 Lashae Trevino [facility] [address] [place] [address] [id number] Pharmacist Pharmacist 10/14/19 12/01/20 Eduardo Sharma MD [address] [place] [address] Assigned Sleep Provider 04/02/2005/07 [place] [address] 885[address] Assigned Musculoskeletal Provider 04/02/20 08/24/20 Macrelo Artis PA-C [address] [address] Assigned Musculoskeletal Provider 08/25/20 08/20/21 Rodrigo Man PA-C [address] [address] Assigned Surgical Provider 08/25/20 11/27/20 Noreen Flores APRN SWEAT BAND SEPARATOR [address] [place] [address] [place] [address] Assigned PCP 08/05/22 03/16/23 Agatha Null DPM, Podiatry/Foot and Ankle Surgery [address] [place] [address] [facility] [address] [place] [address] Assigned Musculoskeletal Provider 11/04/22 Clinic - [place] [facility] [address] [place] [address] [place] [address] Assigned PCP 07/05/23 documented as of this encounter
--- OUTSIDE RECORDS SUMMARY | 2023-10-19 16:34 | XMS_ITS | Encounter Summary ---
Author Name Unknown Organization [place] Address [address] [place] [address] Care Team Providers Care Assembly Leader Name Role Phone Vanda Guerrero MD Primary Care Provider [phone] Vanda Guerrero MD Unavailable [phone] Jeana-Noreen Miles APRN FIRMWARE MANAGER Unavailable [facility]-Noreen Miles APRN FIRMWARE MANAGER Unavailable [facility]-JdNoreen castro APRN FIRMWARE MANAGER Primary Car e Provider Kalyan Galvan Unavailable Unavailable Lashae Trevino [facility] Unavailable Eduardo Sharma MD Unavailable Rios Monteiro MD Unavailable Marcelo ArtisC Unavailable [phone] Rodrigo Man-C Unavailable Jeana-Noreen Miles APRN FIRMWARE MANAGER Unavailable Sudha Greene NP Primary Care Provider Agatha Null DPM, Podiatry /Foot and Ankle Surgery [facility] Unavailable Reason for Referral * Diagnostic Imaging Ultrasound - Closed Specialty Diagnoses / Procedures Referred By Rylie t Referred To Contact Radiology. Diagnoses Alkaline phosphatase elevation Procedures [place] [address] [place] [address] [place] [address] Rh Ultrasound Rscc [address] [facility] [address] [place] [address] Referral ID Status Reason Start Date Expiration Date Visits Re quested Visits Authorized [id number] Closed 06/15/2017 06/15/2018 1 1 ING SUPERVISOR Reason for Visit * Reason Onset Date Comments Lab Result Notice 06/15/2017 response to 06/12/17 result note Encounter Details Date Type Department Care Team (Late st Contact Info) Description 06/15/2017 MyC Medical Advice [facility] [address] [facility] [address] [place] [id number] Vanda Guerrero MD [address] [place] [address] [place] [id number] Lab Result Notice (response to 06/12/17 resu... [...] Kallie Celaya RN - 06/15/2017 4:26 PM MILLING SUPERVISOR Sent Loomia message. ING SUPERVISOR * Telephone Encounter - Vanda Guerrero MD - 06/15/2017 2:48 PM MILLING SUPERVISOR Orders placed - please let patient know. ING SUPERVISOR * Telephone Encounter - Kallie Celaya RN - 06/15/2017 2:31 PM MILLING SUPERVISOR Patient ok to restart Metformin & for US. T'd up. Please advise. ING SUPERVISOR documented in this encounter Plan of Treatment Not on file documented as of this encounter Results * US Abdomen Limited (06/21/2017 10:11 AM MILLING SUPERVISOR) Anatomical Region Laterality Modality Abdomen/Pelvis Ultrasound Impressions 06/21/2017 10:49 AM MILLING SUPERVISOR IMPRESSION: ??Fatty infiltration of the liver. No gallstones or bile duct dilatation. BRIDGETTE LOZA MD Narrative 06/21/2017 10:49 AM MILLING SUPERVISOR ULTRASOUND ABDOMEN LIMITED 06/21/2017 10:11 AM HISTORY: [...] Depression Total Score: 12 018 1:02 PM MILLING SUPERVISOR documented as of this encounter Care Teams Assembly Leader Relationship Specialty Start Date End Date Vanda Guerrero MD [address] [place] [address] [place] [address] PCP - General Internal Medicine 04/08/15 01/08/19 Vanda Guerrero MD [address] [place] [address] [place] [address] PCP - Assigned PCP 07/24/16 06/15/18 Noreen Flores APRN FIRMWARE MANAGER [address] [place] [address] [place] [address] PCP - Assigned PCP 06/16/18 08/13/18 Noreen Flores APRN FIRMWARE MANAGER [address] [place] [address] [place] [address] PCP - General Nurse Practitioner 01/09/19 12/12/21 Sudha Greene, MAURICIO [address] [address] PCP - General 11/01/22 Noreen Flores APRN FIRMWARE MANAGER [address] [place] [address] [place] [address] Assigned PCP 06/16/18 05/26/22 Kalyan Galvan Personal Advocate & Liaison (PAL) 08/08/19 04/26/21 Lashae Trevino, [facility] [address] [place] [address] Pharmacist Pharmacist 10/14/19 12/01/20 Eduardo Sharma MD [address] [place] [address] [place] 49[address]25 Assigned Sleep Provider 04/02/2005/07 [place] [address] [facility] [address] [place], [place] 704597 Assigned Musculoskeletal Provider 04/02/20 08/24/20 Marcelo Artis PA-C [id number] [place] [address] 300 [place] [address] Assigned Musculoskeletal Provider 08/25/20 08/20/21 Rodrigo Man PA-C [address] [place] [address] Assigned Surgical Provider 08/25/20 11/27/20 Noreen Flores APRN CNP [address] [place] [address] [place] [address] Assigned PCP 08/05/22 03/16/23 Agatha Null DPM, Podiatry/Foot and Ankle Surgery [address] [place] [address] [address] [place] [address] Assigned Musculoskeletal Provider 11/04/22 [facility] [address] [facility] [place] [address] Assigned PCP 07/05/23 documented as of this encounter
--- OUTSIDE RECORDS SUMMARY | 2023-10-19 16:34 | XMS_ITS | Encounter Summary ---
Author Name Unknown Organization [place] Address [address] [place] [address] Care Team Providers Care College Professor Name Role Phone Vanda Guerrero MD Primary Care Provider [phone] Vanda Guerrero MD Unavailable [phone] Jeana-Noreen Miles APRN TELEVISION PRODUCTION CLERK Unavailable [facility]-Noreen Miles APRN TELEVISION PRODUCTION CLERK Unavailable [facility]-JdNoreen castro APRN TELEVISION PRODUCTION CLERK Primary Car e Provider Kalyan Galvan Unavailable Unavailable Lashae Trevino [facility] Unavailable Eduardo Sharma MD Unavailable Rios Monteiro MD Unavailable Marcelo Artis PA-C Unavailable [phone] Rodrigo ManC Unavailable Jeana-JdNoreen castro APRN TELEVISION PRODUCTION CLERK Unavailable Sudha Greene NP Primary Care Provider Agatha Null DPM, Podiatry /Foot and Ankle Surgery Unavailable [facility] Unavailable Reason for Visit * Reason Onset Date Comments Musculoskeletal Problem 06/13/2016 Travel a dvice Encounter Details Date Type Department Care Team (Latest Contact Info) Description 06/13/2016 MyC Medical Advice [facility] [address] [place] [address] Agatha Null DPM, Podiatry/Foot and Ankle Surgery [address] [place] [address] Musculoskeletal Problem (Travel advice) Social History Tobacco [...] to provider for review. Iain Barone RN TY GROOVING MACHINE OPERATOR documented in this [...] Total Score: 11 05/02/ 016 7:09 AM SAFETY GROOVING MACHINE OPERATOR documented as of this encounter Care Teams College Professor Relationship Specialty Start Date End Date Vanda Guerrero MD [address] [facility] [place] [address] PCP - General Internal Medicine 04/08/15 01/08/19 Vanda Guerrero MD [address] [facility] [place] [address] PCP - Assigned PCP 07/24/16 06/15/18 Noreen Flores APRN TELEVISION PRODUCTION CLERK [address] [place] [address] [place] [address] PCP - Assigned PCP 06/16/18 08/13/18 Noreen Flores APRN TELEVISION PRODUCTION CLERK [address] [place] [address] [place] [address] PCP - General Nurse Practitioner 01/09/19 12/12/21 Sudha Greene, MAURICIO [address] [address] PCP - General 11/01/22 Noreen Flores APRN TELEVISION PRODUCTION CLERK [address] [place] [address] [place] [address] Assigned PCP 06/16/18 05/26/22 Kalyan Galvan Personal Advocate & Liaison (PAL) 08/08/19 04/26/21 Lashae Trevino, [facility] [address] [facility] [place] [address] Pharmacist Pharmacist 10/14/19 12/01/20 Eduardo Sharma MD [address] [facility] 103 [place] [address] Assigned Sleep Provider 04/02/2005/07 [place] [address] [facility] 300 [place] [address] Assigned Musculoskeletal Provider 04/02/20 08/24/20 ChandraMarcelo PA-C [address] [facility] 300 [place] [address] Assigned Musculoskeletal Provider 08/25/20 08/20/21 Rodrigo Man PA-C [address] [facility] [address] [place] [address] Assigned Surgical Provider 08/25/20 11/27/20 Noreen Flores APRN TELEVISION PRODUCTION CLERK [address] [facility] [place] [id number] Assigned PCP 08/05/22 03/16/23 Agatha Null DPM, Podiatry/Foot and Ankle Surgery [address] [facility] [address] [place] [address] Assigned Musculoskeletal Provider 11/04/22 [facility] [place] [facility] [address] [facility] DAV[place] ORDOÑEZ [id number] Assigned PCP 07/05/23 documented as of this encounter
--- OUTSIDE RECORDS SUMMARY | 2023-10-19 16:34 | XMS_ITS | Encounter Summary ---
Author Name Unknown Organization [place] Address [address] [place] [address] Care Team Providers Care Lens Mold Setter Name Role Phone Vanda Guerrero MD Primary Care Provider [phone] Vanda Guerrero MD Unavailable [phone] Jeana-Noreen Miles APRN CARE TEAM ASSISTANT Unavailable [facility]-Noreen Miles APRN CARE TEAM ASSISTANT Unavailable [facility]-JdNoreen castro APRN CARE TEAM ASSISTANT Primary Car e Provider Kalyan Galvan Unavailable Unavailable Lashae Trevino [facility] Unavailable Eduardo Sharma MD Unavailable Rios Monteiro MD Unavailable [phone] Marcelo Artis PA-C Unavailable Rodrigo ManC Unavailable Jeana-JdNoreen castro APRN CARE TEAM ASSISTANT Unavailable Sudha Greene NP Primary Care Provider Agatha Null DPM, Podiatry /Foot and Ankle Surgery Unavailable [facility] [place] Unavailable Reason for Visit * Reason Onset Date Comments Clarification 05/19/2016 Encounter Details Date Type Department Care Team (Late st Contact Info) Description 05/19/2016 MyC Medical Advice [facility] [address] [place] [address] Agatha Null, DPM, Podiatry/Foot and Ankle Surgery [address] [place] [place] [address] Clarification Social History Tobacco Use Types Packs/Day [...] Total Score: 11 05/02/ 016 7:09 AM RECEIVABLE MANAGER documented as of this encounter Care Teams Lens Mold Setter Relationship Specialty Start Date End Date Vanda Guerrero MD [address] [place] [address] [place] [address] PCP - General Internal Medicine 04/08/15 01/08/19 Vanda Guerrero MD [address] [place] [address] [place] [address] PCP - Assigned PCP 07/24/16 06/15/18 Noreen Flores APRN CNP [address] [place] [address] [place] [address] PCP - Assigned PCP 06/16/18 08/13/18 Noreen Flores APRN CARE TEAM ASSISTANT [address] [facility] [place] [address] PCP - General Nurse Practitioner 01/09/19 12/12/21 Sudha Greene NP [address] [address] PCP - General 11/01/22 Noreen Flores APRN CARE TEAM ASSISTANT [address] [place] [address] [place] [address] Assigned PCP 06/16/18 05/26/22 Kalyan Galvan Personal Advocate & Liaison (PAL) 08/08/19 04/26/21 [facility] [address] [place] [address] [place] [address] Pharmacist Pharmacist 10/14/19 12/01/20 Eduardo Sharma MD [address] [place] [address] Assigned Sleep Provider 04/02/2005/07 [place] [address] [facility] [place] [place] [address] Assigned Musculoskeletal Provider 04/02/20 08/24/20 Marcelo Artis PA-C [address] [facility] [place] [address] [place] [address] Assigned Musculoskeletal Provider 08/25/20 08/20/21 Rodrigo Man PA-C [address] [place] [address] [place] [address] Assigned Surgical Provider 08/25/20 11/27/20 Noreen Flores APRN CARE TEAM ASSISTANT [address] [facility] [place] [address] Assigned PCP 08/05/22 03/16/23 Agatha Nlul DPM, Podiatry/Foot and Ankle Surgery [address] [place] [address] Assigned Musculoskeletal Provider 11/04/22 [facility] [place] [place] [facility] [address] [facility] [address] [place] [address] Assigned PCP 07/05/23 documented as of this encounter
--- OUTSIDE RECORDS SUMMARY | 2023-10-19 16:34 | XMS_ITS | Encounter Summary ---
Author Name Unknown Organization [place] Address [address] [place] [address] Care Team Providers Care Burlap Spreader Name Role Phone Vanda Guerrero MD Primary Care Provider [phone] Vanda Guerrero MD Unavailable [phone] Jeana-Noreen Miles APRN ASSOCIATE PROFESSOR OF SURGERY Unavailable [facility]-Noreen Miles APRN ASSOCIATE PROFESSOR OF SURGERY Unavailable [facility]-JdNoreen castro APRN ASSOCIATE PROFESSOR OF SURGERY Primary Car e Provider Kalyan Galvan Unavailable Unavailable Lashae Trevino [facility] Unavailable Eduardo Sharma MD Unavailable Rios Monteiro MD Unavailable Marcelo Artis PA-C Unavailable [phone] Rodrigo Man PA-C Unavailable Jeana-Noreen Miles APRN ASSOCIATE PROFESSOR OF SURGERY Unavailable Sudha Greene NP Primary Care Provider [phone] Agatha Null DPM, Podiatry /Foot and Ankle Surgery Unavailable [facility] [place] [facility] Unavailable Reason for Visit * Reason Comments Medication Refill zolpidem (AMBIEN) 5 MG tablet Encounter Details Date Type Department Care Team (Late st Contact Info) Description 02/20/2018 Refill [facility] [place] [address] [facility] [address] [place] [address] Vanda Guerrero MD [address] [facility] [place] [address] Medication Refill (zolpidem (AMBIEN) 5 MG tablet) [...] in station out basket or on MA/DIRECTOR WORKFORCE MANAGEMENT/RN desk * Telephone Encounter - Gayathri Mcallister RN - 02/21/2018 3:33 PM CDT TRANSPORT NURSE checked: patient refilled: 06/12, 07/07 and 10/04 [...] documented as of this encounter Care Teams Burlap Spreader Relationship Specialty Start Date End Date Vanda Guerrero MD [address] [place] [address] [place] [address] PCP - General Internal Medicine 04/08/15 01/08/19 Vanda Guerrero MD [address] [place] [address] [place] [address] PCP - Assigned PCP 07/24/16 06/15/18 Noreen Flores APRN ASSOCIATE PROFESSOR OF SURGERY [address] [place] [address] [place] [address] PCP - Assigned PCP 06/16/18 08/13/18 Noreen Flores APRN ASSOCIATE PROFESSOR OF SURGERY [address] [facility] [place] [address] PCP - General Nurse Practitioner 01/09/19 12/12/21 Sudha Greene NP [address] [address] PCP - General 11/01/22 Noreen Flores, SEAN ASSOCIATE PROFESSOR OF SURGERY [address] [place] [address] [place] [address] Assigned PCP 06/16/18 05/26/22 Kalyan Galvan Personal Advocate & Liaison (PAL) 08/08/19 04/26/21 [facility] [address] [place] [address] [place] [address] Pharmacist Pharmacist 10/14/19 12/01/20 Eduardo Sharma MD [address] [place] [id number] Assigned Sleep Provider 04/02/2005/07 [place] [address] [facility] [address] [place] [address] Assigned Musculoskeletal Provider 04/02/20 08/24/20 Marcelo Artis PA-C [address] [facility] [address] [place], [place] [address] Assigned Musculoskeletal Provider 08/25/20 08/20/21 Rodrigo Man PA-C [address] [place] [id number] Assigned Surgical Provider 08/25/20 11/27/20 Noreen Flores APRN ASSOCIATE PROFESSOR OF SURGERY [address] [facility] [place] [address] Assigned PCP 08/05/22 03/16/23 Agatha Null DPM, Podiatry/Foot and Ankle Surgery [address] [place] [address] Assigned Musculoskeletal Provider 11/04/22 [facility] [place] [facility] [address] [facility] [place] [id number] Assigned PCP 07/05/23 documented as of this encounter
--- OUTSIDE RECORDS SUMMARY | 2023-10-19 16:34 | XMS_ITS | Encounter Summary ---
Author Name Unknown Organization [place] Address [address] [place] [address] Care Team Providers Care Vegetable Farm Manager Name Role Phone Vanda Guerrero MD Primary Care Provider [phone] Vanda Guerrero MD Unavailable [phone] Jeana-Noreen Miles APRN CLAIMS ASSOCIATE Unavailable Jeana-Noreen Miles APRN CLAIMS ASSOCIATE Unavailable Jeana-JdNoreen castro APRN CLAIMS ASSOCIATE Primary Car e Provider Kalyan Galvan Unavailable Unavailable Lashae Trevino [facility] Unavailable Eduardo Sharma MD Unavailable Rios Monteiro MD Unavailable Marcelo Artis PA-C Unavailable [phone] Rodrigo ManC Unavailable Jeana-JdNoreen castro APRN CLAIMS ASSOCIATE Unavailable Sudha Greene NP Primary Care Provider [phone] Agatha Null DPM, Podiatry /Foot and Ankle Surgery Unavailable [facility] [place] [facility] Unavailable Encounter Details Date Type Department Care Team (Late st Contact Info) Description 03/21/2017 [facility] [address] [place] [address] Dusty Oneil [facility] Social History Tobacco Use Types [...] documented as of this encounter Care Teams Vegetable Farm Manager Relationship Specialty Start Date End Date Vanda Guerrero MD [address] [place] [address] [place] [address] PCP - General Internal Medicine 04/08/15 01/08/19 Vanda Guerrero MD [address] [place] [address] [place] [address] PCP - Assigned PCP 07/24/16 06/15/18 Noreen Flores APRN CLAIMS ASSOCIATE [address] [place] [address] [place] [address] PCP - Assigned PCP 06/16/18 08/13/18 Noreen Flores APRN CLAIMS ASSOCIATE [address] [place] [address] [place] [address] PCP - General Nurse Practitioner 01/09/19 12/12/21 Sudha Greene NP [address] [address] PCP - General 11/01/22 Noreen Flores APRN CLAIMS ASSOCIATE [address] [facility] [place] [address] Assigned PCP 06/16/18 05/26/22 Kalyan Galvan Personal Advocate & Liaison (PAL) 08/08/19 04/26/21 Lashae Trevino [facility] [address] [facility] [place] [address] Pharmacist Pharmacist 10/14/19 12/01/20 Eduardo Sharma MD [address] [place] [address] Assigned Sleep Provider 04/02/2005/07 [place] [address] [facility] 300 [place] [address] Assigned Musculoskeletal Provider 04/02/20 08/24/20 Marcelo Artis PA-C [address] [facility] [address] [place] [address] Assigned Musculoskeletal Provider 08/25/20 08/20/21 Rodrigo Man PA-C [address] [place] [place] [address] Assigned Surgical Provider 08/25/20 11/27/20 Noreen Flores APRN CLAIMS ASSOCIATE [address] [facility] [place] [address] Assigned PCP 08/05/22 03/16/23 Agatha Null DPM, Podiatry/Foot and Ankle Surgery [address] [place] [address] Assigned Musculoskeletal Provider 11/04/22 [facility] - [place] [facility] [address] [facility] [place] [address] Assigned PCP 07/05/23 documented as of this encounter
--- OUTSIDE RECORDS SUMMARY | 2023-10-19 16:34 | XMS_ITS | Encounter Summary ---
Author Name Unknown Organization [place] Address [address] [place] [address] Care Team Providers Care Revenue Accounting Manager Name Role Phone Vanda Guerrero MD Primary Care Provider [phone] Vanda Guerrero MD Unavailable [phone] Jeana-Noreen Miles APRN SUPERVISOR COSTUMING Unavailable [facility]oreen Miles APRN SUPERVISOR COSTUMING Unavailable [facility]-JdNoreen castro APRN SUPERVISOR COSTUMING Primary Car e Provider Kalyan Galvan Unavailable Unavailable Lashae Trevino [facility] Unavailable [phone] Eduardo Sharma MD Unavailable Rios Monteiro MD Unavailable [phone] Marcelo Artis PA-C Unavailable [phone] Rodrigo ManC Unavailable Jeana-JdNoreen castro APRN SUPERVISOR COSTUMING Unavailable Sudha Greene NP Primary Care Provider Agatha Null DPM, Podiatry /Foot and Ankle Surgery Unavailable [facility] Unavailable Reason for Visit * Reason Comments Medication Refill ONETOUCH ULTRA test strip; simvastatin (ZOCOR) 20 MG tablet Encounter Details Date Type Department Care Team (Late st Contact Info) Description 12/21/2017 Refill [facility] [place] [address] [facility] [address] [place] [address] Vanda Guerrero MD [address] [facility] [place] [address] Medication Refill (ONETOUCH ULTRA test strip; simvastatin [...] 12/25/2017 10:56 AM CDT Prescription approved per [facility] Refill Protocol. Day Greene RN, BSN * [...] Depression Total Score: 12 018 1:02 PM HIDE SELECTOR documented as of this encounter Care Teams Revenue Accounting Manager Relationship Specialty Start Date End Date Vanda Guerrero MD [address] [facility] [place] [address] PCP - General Internal Medicine 04/08/15 01/08/19 Vanda Guerrero MD [address] [facility] [place] [address] PCP - Assigned PCP 07/24/16 06/15/18 Noreen Flores APRN SUPERVISOR COSTUMING [address] [place] [address] [place] [address] PCP - Assigned PCP 06/16/18 08/13/18 Noreen Flores APRN SUPERVISOR COSTUMING [address] [place] [address] [place] [address] PCP - General Nurse Practitioner 01/09/19 12/12/21 Sudha Greene, MAURICIO [address] [address] PCP - General 11/01/22 Noreen Flores APRN SUPERVISOR COSTUMING [address] [place] [address] [place] [address] Assigned PCP 06/16/18 05/26/22 Kalyan Galvan Personal Advocate & Liaison (PAL) 08/08/19 04/26/21 [facility] 1440 [facility] [place] [phone] Pharmacist Pharmacist 10/14/19 12/01/20 Eduardo Sharma MD [address] [facility] 103 [place] [address] Assigned Sleep Provider 04/02/2005/07 [place] [address] [facility] [place] [address] [place] [id number] Assigned Musculoskeletal Provider 04/02/20 08/24/20 Marcelo Artis PA-C [address] [address] Assigned Musculoskeletal Provider 08/25/20 08/20/21 Rodrigo Man PA-C [address] [address] Assigned Surgical Provider 08/25/20 11/27/20 Noreen Flores APRN SUPERVISOR COSTUMING [address] [place] [address] [place] [address] Assigned PCP 08/05/22 03/16/23 Agatha Null DPM, Podiatry/Foot and Ankle Surgery [address] [place] [address] 300 [place] [address] Assigned Musculoskeletal Provider 11/04/22 [facility] [place] [facility] [address] [place], [place] [address] [address] Assigned PCP 07/05/23 documented as of this encounter
--- OUTSIDE RECORDS SUMMARY | 2023-10-19 16:34 | XMS_ITS | Encounter Summary ---
Author Name Unknown Organization [place] Address [address] [place] [address] Care Team Providers Care Wrap Turner Name Role Phone Vanda Guerrero MD Primary Care Provider [phone] Vanda Guerrero MD Unavailable [phone] Jeana-Noreen Miles APRN FAST FOOD SALES ASSISTANT Unavailable [facility] [place]Noreen Miles APRN FAST FOOD SALES ASSISTANT Unavailable [facility] [place]-JdNoreen castro APRN FAST FOOD SALES ASSISTANT Primary Car e Provider Kalyan Galvan Unavailable Unavailable Lashae Trevino [facility] Unavailable Eduardo Sharma MD Unavailable Rios Monteiro MD Unavailable [phone] Marcelo Artis PA-C Unavailable [phone] Rodrigo ManC Unavailable [phone] Jeana-Noreen Miles APRN FAST FOOD SALES ASSISTANT Unavailable Sudha Greene NP Primary Care Provider Agatha Null DPM, Podiatry /Foot and Ankle Surgery Unavailable [facility] [place] [facility] Unavailable Reason for Visit * Reason Onset Date Comments Patient/info Update 07/18/2017 post C7-T1 i nterlaminar epidural steroid injection Encounter Details Date Type Department Care Team (Late st Contact Info) Description 07/18/2017 Telephone [facility] Pain Management [place] [address] [facility] [address] [place], [place] [address] Jim Wang MD [address] [place] [address] Patient/info Update (post C7-T1 interlaminar epidural steroid [...] pt should call the nurse line at [phone]. CARE PLANNER documented in this encounter Plan of Treatment Not on file documented as of this encounter Visit Diagnoses Not on filedocumented in this encounter Additional Health Concerns Infection Onset Date Last Indicated Resolved Time Rule Out COVID-19 08/25/2020 08/25/2020 08/26/2020 3:23 PM CDT Rule Out COVID-19 11/26/2022 11/26/2022 11/27/2022 3:38 PM CDT Assessment Noted Time PHQ-9 Depression Total Score: 12 018 1:02 PM LIFE CARE PLANNER documented as of this encounter Care Teams Wrap Turner Relationship Specialty Start Date End Date Vanda Guerrero MD [address] [place] [address] [place] [address] PCP - General Internal Medicine 04/08/15 01/08/19 Vanda Guerrero MD [address] [place] [address] [place] [address] PCP - Assigned PCP 07/24/16 06/15/18 Noreen Flores APRN FAST FOOD SALES ASSISTANT [address] [place] [address] [place] [address] PCP - Assigned PCP 06/16/18 08/13/18 Noreen Flores APRN FAST FOOD SALES ASSISTANT [address] [place] [address] [place] [address] PCP - General Nurse Practitioner 01/09/19 12/12/21 Sudha Greene, MAURICIO [address] [address] PCP - General 11/01/22 Noreen Flores APRN FAST FOOD SALES ASSISTANT [address] [place] [address] [place] [address] Assigned PCP 06/16/18 05/26/22 Kalyan Galvan Personal Advocate & Liaison (PAL) 08/08/19 04/26/21 Lashae Trevino, [facility] [address] [place] [address] Pharmacist Pharmacist 10/14/19 12/01/20 Eduardo Sharma MD [address] [place] [address] [place] [address] Assigned Sleep Provider 04/02/2005/07 [place] [address] [facility] 300 [place] [address] Assigned Musculoskeletal Provider 04/02/20 08/24/20 Marcelo Artis PA-C [address] [facility] 300 [place] [address] Assigned Musculoskeletal Provider 08/25/20 08/20/21 Rodrigo Man PA-C [address] [place] [address] [place] [address] Assigned Surgical Provider 08/25/20 11/27/20 Noreen Flores APRN FAST FOOD SALES ASSISTANT [address] [place] [address] [place] [id number] Assigned PCP 08/05/22 03/16/23 Agatha Null DPM, Podiatry/Foot and Ankle Surgery [address] [place] [address] [place] [address] [place] [address] Assigned Musculoskeletal Provider 11/04/22 [facility] [place] 3305 [facility] [place] [id number] Assigned PCP 07/05/23 documented as of this encounter
--- OUTSIDE RECORDS SUMMARY | 2023-10-19 16:34 | XMS_ITS | Encounter Summary ---
Author Name Unknown Organization [place] Address [address] [place] [address] Care Team Providers Care Owner Oral Surgeon Name Role Phone Vanda Guerrero MD Primary Care Provider [phone] Vanda Guerrero MD Unavailable [phone] Jeana-Noreen Miles APRN LOAN REPRESENTATIVE Unavailable Jeana-Noreen Miles APRN LOAN REPRESENTATIVE Unavailable Jeana-JdNoreen castro APRN LOAN REPRESENTATIVE Primary Car e Provider Kalyan Galvan Unavailable Unavailable Lashae Trevino [facility] Unavailable Eduardo Sharma MD Unavailable Rios Monteiro MD Unavailable Marcelo Artis PA-C Unavailable [phone] Rodrigo ManC Unavailable Jeana-JdNoreen castro APRN LOAN REPRESENTATIVE Unavailable Sudha Greene NP Primary Care Provider Agatha NullM, Podiatry /Foot and Ankle Surgery Unavailable [facility] Unavailable Encounter Details Date Type Department Care Team (Late st Contact Info) Description 12/05/2016 [facility] [address] [place] [address] Heath Sandy Rodríguezne, [facility] 1440 [facility] [place] [address] Social History Tobacco Use Types Packs/Day Years [...] documented as of this encounter Care Teams Owner Oral Surgeon Relationship Specialty Start Date End Date Vanda Guerrero MD [address] [place] [address] [place] [address] PCP - General Internal Medicine 04/08/15 01/08/19 Vanda Guerrero MD [address] [place] [address] [place] [address] PCP - Assigned PCP 07/24/16 06/15/18 Noreen Flores APRN LOAN REPRESENTATIVE [address] [place] [address] [place] [address] PCP - Assigned PCP 06/16/18 08/13/18 Noreen Flores APRN LOAN REPRESENTATIVE [address] [place] [address] [place] [address] PCP - General Nurse Practitioner 01/09/19 12/12/21 Sudha Greene NP [address] [address] PCP - General 11/01/22 Noreen Flores APRN LOAN REPRESENTATIVE [address] [place] [address] [place] [address] Assigned PCP 06/16/18 05/26/22 Kalyan Galvan Personal Advocate & Liaison (PAL) 08/08/19 04/26/21 Lashae Trevino, [facility] [place] [phone] Pharmacist Pharmacist 10/14/19 12/01/20 Eduardo Sharma MD [address] [place] [address] [place] [id number] Assigned Sleep Provider 04/02/2005/07 [place] [address] [place] [address] [place] [address] Assigned Musculoskeletal Provider 04/02/20 08/24/20 Marcelo Artis PA-C [address] [place] [address] [place] [address] Assigned Musculoskeletal Provider 08/25/20 08/20/21 Rodrigo Man PA-C [address] [place] [address] [place] [id number] Assigned Surgical Provider 08/25/20 11/27/20 Noreen Flores APRN LOAN REPRESENTATIVE 3305 [facility] [place] [address] Assigned PCP 08/05/22 03/16/23 Agatha Null DPM, Podiatry/Foot and Ankle Surgery [address] [place] [address] Assigned Musculoskeletal Provider 11/04/22 [facility] 3305 [facility] [place] [phone] Assigned PCP 07/05/23 documented as of this encounter
[2023-10-19 16:35] VITALS: BP 122/53; PULSE 73; RESP 18; O2SAT 97
[2023-10-19] MEDS: KETOROLAC 30 MG/ML inj IM (16:35)
--- OUTSIDE RECORDS SUMMARY | 2023-10-19 16:35 | XMS_ITS | Encounter Summary ---
Author Name Unknown Organization [place] Address [address] [place] [address] Care Team Providers Care Automobile Washer Steam Name Role Phone Selma Good APRN HR COORDINATOR Primary Care Pro vider Vanda Guerrero MD Primary Care Provider [phone] Vanda Guerrero MD Unavailable [phone] Jeana-JdNoreen castro APRN, CNP Unavailable Jeana-JdNoreen castro APRN, CNP Unavailable Jeana-JdNoreen castro APRN HR COORDINATOR Primary Car e Provider Kalyan Galvan Unavailable Unavailable Lashae Trevino [facility] Unavailable [phone] Eduardo Sharma MD Unavailable Rios Monteiro MD Unavailable [phone] Marcelo Artis PA-C Unavailable [phone] Rodrigo Man PA-C Unavailable [phone] Jeana-JdNoreen castro APRN HR COORDINATOR Unavailable Sudha Greene NP Primary Care Provider Agatha NullM, Podiatry /Foot and Ankle Surgery Unavailable [facility] Unavailable Encounter Details Date Type Department Care Team (Late st Contact Info) Description 04/17/2010 MyC Medical Advice [address] [place] [id number] Selma Good APRN HR COORDINATOR [address] [place] [address] [place] [address] Social History Tobacco Use Types Packs/Day Years [...] respond to pt regarding her sodium intake. IAL PROCEDURES TECHNOLOGIST documented in this encounter Plan of Treatment Not on file documented as of this encounter Visit Diagnoses Not on filedocumented in this encounter Additional Health Concerns Infection Onset Date Last Indicated Resolved Time Rule Out COVID-19 08/25/2020 08/25/2020 08/26/2020 3:23 PM CDT Rule Out COVID-19 11/26/2022 11/26/2022 11/27/2022 3:38 PM CDT documented as of this encounter Care Teams Automobile Washer Steam Relationship Specialty Start Date End Date Selma Good APRN HR COORDINATOR [address] [place] [address] [place] [address] PCP - General 04/09/08 04/07/15 Vanda Guerrero MD [address] [place] [address] [place] [address] PCP - General Internal Medicine 04/08/15 01/08/19 Vanda Guerrero MD [address] [place] [address] [place] [address] PCP - Assigned PCP 07/24/16 06/15/18 Noreen Flores APRN HR COORDINATOR [address] [place] [address] [place] [address] PCP - Assigned PCP 06/16/18 08/13/18 Noreen Flores APRN HR COORDINATOR [address] [place] [address] [place] [address] PCP - General Nurse Practitioner 01/09/19 12/12/21 Sudha Greene, MAURICIO [address] [address] PCP - General 11/01/22 Noreen Flores APRN HR COORDINATOR [address] [place] [address] [place] [address] Assigned PCP 06/16/18 05/26/22 Kalyan Galvan Personal Advocate & Liaison (PAL) 08/08/19 04/26/21 [facility] 1440 [facility] [place] [phone] Pharmacist Pharmacist 10/14/19 12/01/20 Eduardo Sharma MD [address] [facility] 103 [place] [id number] Assigned Sleep Provider 04/02/2005/07 [place] [address] [facility] 300 [place] [id number] Assigned Musculoskeletal Provider 04/02/20 08/24/20 Marcelo Artis PA-C [address] [address] Assigned Musculoskeletal Provider 08/25/20 08/20/21 Rodrigo Man PA-C [address] [address] Assigned Surgical Provider 08/25/20 11/27/20 Noreen Flores APRN HR COORDINATOR [address] [place] [address] [place] [address] Assigned PCP 08/05/22 03/16/23 Agatha Null DPM, Podiatry/Foot and Ankle Surgery [address] [place] [address] 300 [place] [address] Assigned Musculoskeletal Provider 11/04/22 [facility] [address] [place], [place] [address] [address] Assigned PCP 07/05/23 documented as of this encounter
--- OUTSIDE RECORDS SUMMARY | 2023-10-19 16:35 | XMS_ITS | Encounter Summary ---
Author Name Unknown Organization [place] Address [address] [place] [address] Care Team Providers Care Ekg Monitor Name Role Phone Selma Good APRN SUPERVISOR INTERNATIONAL RESERVATIONS Primary Care Pro vider Vanda Guerrero MD Primary Care Provider [phone] Vanda Guerrero MD Unavailable [phone] Jeana-JdNoreen castro APRN, CNP Unavailable Jeana-JdNoreen castro APRN, CNP Unavailable Jeana-JdNoreen castro APRN SUPERVISOR INTERNATIONAL RESERVATIONS Primary Car e Provider Kalyan Galvan Unavailable Unavailable Lashae Trevino [facility] Unavailable [phone] Eduardo Sharma MD Unavailable Rios Monteiro MD Unavailable [phone] Marcelo Artis-Aleyda Unavailable [phone] Rodrigo Man-C Unavailable [phone] Jeana-JdNoreen castro APRN SUPERVISOR INTERNATIONAL RESERVATIONS Unavailable Sudha Greene NP Primary Care Provider Agatha NullM, Podiatry /Foot and Ankle Surgery Unavailable [facility] Unavailable Reason for Visit * Reason Onset Date Comments Medication Question 11/23/2011 topamax Encounter Details Date Type Department Care Team (Late st Contact Info) Description 11/23/2011 [facility] [address] [place] [address] [place] [phone] Selma Good APRN SUPERVISOR INTERNATIONAL RESERVATIONS 3305 [facility] [place] [address] Medication Question (topamax) Social History Tobacco Use [...] documented as of this encounter Care Teams Ekg Monitor Relationship Specialty Start Date End Date Selma Good APRN SUPERVISOR INTERNATIONAL RESERVATIONS [address] [place] [address] [place] [address] PCP - General 04/09/08 04/07/15 Vanda Guerrero MD [address] [place] [address] [place] [address] PCP - General Internal Medicine 04/08/15 01/08/19 Vanda Guerrero MD [address] [place] [address] [place] [address] PCP - Assigned PCP 07/24/16 06/15/18 Noreen Flores APRN SUPERVISOR INTERNATIONAL RESERVATIONS [address] [place] [address] [place] [address] PCP - Assigned PCP 06/16/18 08/13/18 Noreen Flores APRN SUPERVISOR INTERNATIONAL RESERVATIONS [address] [place] [address] [place] [address] PCP - General Nurse Practitioner 01/09/19 12/12/21 Sudha Greene NP [address] [address] PCP - General 11/01/22 Noreen Flores APRN SUPERVISOR INTERNATIONAL RESERVATIONS [address] [place] [address] [place] [address] Assigned PCP 06/16/18 05/26/22 Kalyan Galvan Personal Advocate & Liaison (PAL) 08/08/19 04/26/21 [facility] [address] [place] [address] [place] [address] Pharmacist Pharmacist 10/14/19 12/01/20 Eduardo Sharma MD [address] [address] Assigned Sleep Provider 04/02/2005/07 Rios Monteiro MD [address] [place] [address] Assigned Musculoskeletal Provider 04/02/20 08/24/20 Marcelo Artis, PA-C [address] [facility] [address] [place] [address] Assigned Musculoskeletal Provider 08/25/20 08/20/21 Rodrigo Man PA-C [address] [place] 450 [place] [address] Assigned Surgical Provider 08/25/20 11/27/20 Noreen Flores APRN SUPERVISOR INTERNATIONAL RESERVATIONS 3305 [facility] [place] [address] Assigned PCP 08/05/22 03/16/23 Agatha Null DPM, Podiatry/Foot and Ankle Surgery [address] [facility] [address] [place] [address] Assigned Musculoskeletal Provider 11/04/22 [facility] 3305 [facility] [place] [phone] Assigned PCP 07/05/23 documented as of this encounter
--- OUTSIDE RECORDS SUMMARY | 2023-10-19 16:35 | XMS_ITS | Encounter Summary ---
Author Name Unknown Organization [place] Address [address] [place] [address] Care Team Providers Care Statistical Clerk Advertising Name Role Phone Selma Good APRN PACKAGING TECHNICIAN Primary Care Pro vider Vanda Guerrero MD Primary Care Provider [phone] Vanda Guerrero MD Unavailable [phone] Jeana-JdNoreen castro APRN, CNP Unavailable Jeana-JdNoreen castro APRN, CNP Unavailable Jeana-JdNoreen castro APRN PACKAGING TECHNICIAN Primary Car e Provider Kalyan Galvan Unavailable Unavailable Lashae Trevino [facility] Unavailable [phone] Eduardo Sharma MD Unavailable Rios Monteiro MD Unavailable [phone] Marcelo Artis-Aleyda Unavailable [phone] Rodrigo Man-C Unavailable [phone] Jeana-JdNoreen castro APRN PACKAGING TECHNICIAN Unavailable Sudha Greene NP Primary Care Provider Agatha NullM, Podiatry /Foot and Ankle Surgery Unavailable [facility] Unavailable Reason for Visit * Reason Onset Date Comments Cellulitis 09/13/2010 not completely g one Encounter Details Date Type Department Care Team (Late st Contact Info) Description 09/13/2010 MyC Medical Advice [facility] [place] [address] [place] [address] [place] [phone] Selma Good, OPERATIONS RESEARCH DIRECTOR PACKAGING TECHNICIAN [facility] [place] [address] Cellulitis (not completely gone ) Social History [...] as of this encounter Care Teams Statistical Clerk Advertising Relationship Specialty Start Date End Date Selma Good, SEAN PACKAGING TECHNICIAN [address] [place] [address] [place] [address] PCP - General 04/09/08 04/07/15 Vanda Guerrero MD [address] [place] [address] [place] [address] PCP - General Internal Medicine 04/08/15 01/08/19 Vanda Guerrero MD [address] [place] [address] [place] [address] PCP - Assigned PCP 07/24/16 06/15/18 Noreen Flores APRN PACKAGING TECHNICIAN [address] [place] [address] [place] [address] PCP - Assigned PCP 06/16/18 08/13/18 Noreen Flores APRN PACKAGING TECHNICIAN [address] [place] [address] [place] [address] PCP - General Nurse Practitioner 01/09/19 12/12/21 Sudha Greene NP [address] [address] PCP - General 11/01/22 Noreen Flores APRN PACKAGING TECHNICIAN [address] [place] [address] [place] [address] Assigned PCP 06/16/18 05/26/22 Kalyan Galvan Personal Advocate & Liaison (PAL) 08/08/19 04/26/21 [facility] [address] [place] [address] [place] [address] Pharmacist Pharmacist 10/14/19 12/01/20 Eduardo Sharma MD [address] [place] [address] Assigned Sleep Provider 04/02/2005/07 Rios Monteiro MD [address] [place] [address] 300 [place], [place] [address] Assigned Musculoskeletal Provider 04/02/20 08/24/20 Marcelo Artis, PA-C [id number] [place] [address] 300 [place] [address] Assigned Musculoskeletal Provider 08/25/20 08/20/21 Rodrigo Man PA-C [address] [place] [facility] [address] [place] [address] Assigned Surgical Provider 08/25/20 11/27/20 Noreen Flores APRN PACKAGING TECHNICIAN 3[address] [facility] [place] [address] Assigned PCP 08/05/22 03/16/23 Agatha Null DPM, Podiatry/Foot and Ankle Surgery [address] [place] [address] [place] [address] Assigned Musculoskeletal Provider 11/04/22 [facility] - [facility] [place] 3305 [facility] [place] [id number] Assigned PCP 07/05/23 documented as of this encounter
--- OUTSIDE RECORDS SUMMARY | 2023-10-19 16:35 | XMS_ITS | Encounter Summary ---
Author Name Unknown Organization [place] Address [address] [place] [address] Care Team Providers Care A P Mechanic Name Role Phone Selma Good APRN JAVA PROGRAMMING PROFESSOR Primary Care Pro vider Vanda Guerrero MD Primary Care Provider [phone] Vanda Guerrero MD Unavailable [phone] Jeana-JdNoreen castro APRN, CNP Unavailable Jeana-JdNoreen castro APRN, CNP Unavailable Jeana-JdNoreen castro APRN JAVA PROGRAMMING PROFESSOR Primary Car e Provider Kalyan Galvan Unavailable Unavailable Lashae Trevino [facility] Unavailable [phone] Eduardo Sharma MD Unavailable Rios Monteiro MD Unavailable [phone] Marcelo Artis-Aleyda Unavailable [phone] Rodrigo Man-C Unavailable [phone] Jeana-JdNoreen castro APRN JAVA PROGRAMMING PROFESSOR Unavailable Sudha Greene NP Primary Care Provider Agatha NullM, Podiatry /Foot and Ankle Surgery Unavailable [facility] [place] [facility] Unavailable Reason for Visit * Reason Onset Date Comments Appointment 08/10/2010 next diabetes? Encounter Details Date Type Department Care Team (Late st Contact Info) Description 08/10/2010 [facility] [address] [place] [address] [place] [phone] Selma Good APRN JAVA PROGRAMMING PROFESSOR [facility]5 [facility] [place] [address] Appointment (next diabetes? ) Social History Tobacco [...] documented as of this encounter Care Teams A P Mechanic Relationship Specialty Start Date End Date Selma Good APRN JAVA PROGRAMMING PROFESSOR [address] [place] [address] [place] [address] PCP - General 04/09/08 04/07/15 Vanda Guerrero MD [address] [place] [address] [place] [address] PCP - General Internal Medicine 04/08/15 01/08/19 Vanda Guerrero MD [address] [place] [address] [place] [address] PCP - Assigned PCP 07/24/16 06/15/18 Noreen Flores APRN JAVA PROGRAMMING PROFESSOR [address] [place] [address] [place] [address] PCP - Assigned PCP 06/16/18 08/13/18 Noreen Flores APRN JAVA PROGRAMMING PROFESSOR [address] [place] [address] [place] [address] PCP - General Nurse Practitioner 01/09/19 12/12/21 Sudha Greene NP [address] [address] PCP - General 11/01/22 Noreen Flores APRN JAVA PROGRAMMING PROFESSOR [address] [place] [address] [place] [address] Assigned PCP 06/16/18 05/26/22 Kalyan Galvan Personal Advocate & Liaison (PAL) 08/08/19 04/26/21 [facility] [place] [phone] Pharmacist Pharmacist 10/14/19 12/01/20 Eduardo Sharma MD [address] [place] [address] Assigned Sleep Provider 04/02/2005/07 Rios Monteiro MD [address] [place] [address] [id number] Assigned Musculoskeletal Provider 04/02/20 08/24/20 Marcelo Artis, PA-C [id number] [place] [address] 300 [place] [address] Assigned Musculoskeletal Provider 08/25/20 08/20/21 Rodrigo Man PA-C [address] [place] [address] [place] [address] Assigned Surgical Provider 08/25/20 11/27/20 Noreen Flores APRN JAVA PROGRAMMING PROFESSOR 3305 [facility] [place] [address] Assigned PCP 08/05/22 03/16/23 Agatha Null DPM, Podiatry/Foot and Ankle Surgery [address] [place] [address] [place] [address] Assigned Musculoskeletal Provider 11/04/22 Clinic - [facility] [place] [address] [facility] [address] [place] [id number] Assigned PCP 07/05/23 documented as of this encounter
--- OUTSIDE RECORDS SUMMARY | 2023-10-19 16:35 | XMS_ITS | Encounter Summary ---
Author Name Unknown Organization [place] Address [address] [place] [address] Care Team Providers Care Water Filterer Name Role Phone Selma Good APRN OPERATIONS VOCATIONAL INSTRUCTOR Primary Care Pro vider Vanda Guerrero MD Primary Care Provider [phone] Vanda Guerrero MD Unavailable [phone] Jeana-JdNoreen castro APRN, CNP Unavailable Jeana-JdNoreen castro APRN, CNP Unavailable Jeana-DjNoreen castro APRN OPERATIONS VOCATIONAL INSTRUCTOR Primary Car e Provider Kalyan Galvan Unavailable Unavailable Lashae Trevino [facility] Unavailable [phone] Eduardo Sharma MD Unavailable Rios Monteiro MD Unavailable [phone] Marcelo Artis PA-C Unavailable [phone] Rodrigo Man PA-C Unavailable [phone] Jeana-JdNoreen castro APRN OPERATIONS VOCATIONAL INSTRUCTOR Unavailable Sudha Greene NP Primary Care Provider [phone] Agatha NullM, Podiatry /Foot and Ankle Surgery Unavailable [facility] Unavailable Encounter Details Date Type Department Care Team (Late st Contact Info) Description 05/28/2012 [facility] Medical Advice [address] [place] [address] Alejo Casas Social History [...] as of this encounter Care Teams Water Filterer Relationship Specialty Start Date End Date Selma Good APRN OPERATIONS VOCATIONAL INSTRUCTOR [address] [facility] [place] [address] PCP - General 04/09/08 04/07/15 Vanda Guerrero MD [address] [place] [address] [place] [address] PCP - General Internal Medicine 04/08/15 01/08/19 Vanda Guerrero MD [address] [place] [address] [place] [address] PCP - Assigned PCP 07/24/16 06/15/18 Noreen Flores APRN OPERATIONS VOCATIONAL INSTRUCTOR [facility] [place] [address] PCP - Assigned PCP 06/16/18 08/13/18 Noreen Folres APRN OPERATIONS VOCATIONAL INSTRUCTOR [address] [place] [address] [place] [address] PCP - General Nurse Practitioner 01/09/19 12/12/21 Sudha Greene NP [address] [address] PCP - General 11/01/22 Noreen Flores APRN OPERATIONS VOCATIONAL INSTRUCTOR [address] [place] [address] [place] [address] Assigned PCP 06/16/18 05/26/22 Kalyan Galvan Personal Advocate & Liaison (PAL) 08/08/19 04/26/21 [facility] [address] [place] [address] [place] [address] Pharmacist Pharmacist 10/14/19 12/01/20 Eduardo Sharma MD [address] [address] Assigned Sleep Provider 04/02/2005/07 [place]ios [place] [id number] [place] [address] 300 [place] [address] Assigned Musculoskeletal Provider 04/02/20 08/24/20 Marcelo Artis PA-C [address] [facility] 300 [place] [address] Assigned Musculoskeletal Provider 08/25/20 08/20/21 Rodrigo Man PA-C [address] [place] [address] Assigned Surgical Provider 08/25/20 11/27/20 Noreen Flores APRN OPERATIONS VOCATIONAL INSTRUCTOR 3305 [facility] [place] [address] Assigned PCP 08/05/22 03/16/23 Agatha Null DPM, Podiatry/Foot and Ankle Surgery [address] [place] [address] Assigned Musculoskeletal Provider 11/04/22 [facility] 3305 [facility] [place] [address] Assigned PCP 07/05/23 documented as of this encounter
--- OUTSIDE RECORDS SUMMARY | 2023-10-19 16:35 | XMS_ITS | Encounter Summary ---
Author Name Unknown Organization [place] Address [address] [place] [address] Care Team Providers Care Seed Yeast Operator Name Role Phone Selma Good APRN CORRUGATED FASTENER DRIVER Primary Care Pro vider Vanda Guerrero MD Primary Care Provider [phone] Vanda Guerrero MD Unavailable [phone] Jeana-JdNoreen castro APRN, CNP Unavailable Jeana-JdNoreen castro APRN, CNP Unavailable Jeana-JdNoreen castro APRN CORRUGATED FASTENER DRIVER Primary Car e Provider Kalyan Galvan Unavailable Unavailable Lashae Trevino [facility] Unavailable [phone] Eduardo Sharma MD Unavailable Rios Monteiro MD Unavailable [phone] Marcelo Artis PA-C Unavailable [phone] Rodrigo Man PA-C Unavailable [phone] Jeana-JdNoreen castro APRN CORRUGATED FASTENER DRIVER Unavailable Sudha Greene NP Primary Care Provider Agatha NullM, Podiatry /Foot and Ankle Surgery Unavailable [facility] Unavailable Encounter Details Date Type Department Care Team (Late st Contact Info) Description 04/24/2011 [facility] [place] [id number] [facility] [place] [phone] Alejo Casas [...] as of this encounter Care Teams Seed Yeast Operator Relationship Specialty Start Date End Date Selma Good APRN CORRUGATED FASTENER DRIVER [address] [place] [address] [place] [address] PCP - General 04/09/08 04/07/15 Vanda Guerrero MD [address] [place] [address] [place] [address] PCP - General Internal Medicine 04/08/15 01/08/19 Vanda Guerrero MD [address] [place] [address] [place] [address] PCP - Assigned PCP 07/24/16 06/15/18 Noreen Flores APRN CORRUGATED FASTENER DRIVER [address] [place] [address] [place] [address] PCP - Assigned PCP 06/16/18 08/13/18 Noreen Flores APRN CORRUGATED FASTENER DRIVER [address]305 [facility] [place] [address] PCP - General Nurse Practitioner 01/09/19 12/12/21 Sudha Greene NP [address] [address] PCP - General 11/01/22 Noreen Flores APRN CORRUGATED FASTENER DRIVER [address] [place] [address] [place] [address] Assigned PCP 06/16/18 05/26/22 Kalyan Galvan Personal Advocate & Liaison (PAL) 08/08/19 04/26/21 [facility] [address] [place] [address] [place] [address] Pharmacist Pharmacist 10/14/19 12/01/20 Eduardo Sharma MD [address] [place] [address] Assigned Sleep Provider 04/02/2005/07 [place] [address] [facility] [address] [place] [address] Assigned Musculoskeletal Provider 04/02/20 08/24/20 Marcelo Artis PA-C [address] [facility] [address] [place] [address] Assigned Musculoskeletal Provider 08/25/20 08/20/21 Rodrigo Man PA-C [address] [place] [address] Assigned Surgical Provider 08/25/20 11/27/20 Noreen Flores APRN CORRUGATED FASTENER DRIVER 3305 [facility] [place] [address] Assigned PCP 08/05/22 03/16/23 Agatha Null DPM, Podiatry/Foot and Ankle Surgery [address] [place] [address] [place] 343007 Assigned Musculoskeletal Provider 11/04/22 [facility] [address] [facility] [address] [place] [address] Assigned PCP 07/05/23 documented as of this encounter
--- OUTSIDE RECORDS SUMMARY | 2023-10-19 16:35 | XMS_ITS | Encounter Summary ---
Author Name Unknown Organization [place] Address [address] [place] [address] Care Team Providers Care Director Private Music Therapy Agency Name Role Phone Selma Good APRN PROBATION AGENT Primary Care Pro vider Vanda Guerrero MD Primary Care Provider [phone] Vanda Guerrero MD Unavailable [phone] Jeana-JdNoreen castro APRN, CNP Unavailable Jeana-JdNoreen castro APRN, CNP Unavailable Jeana-JdNoreen castro APRN PROBATION AGENT Primary Car e Provider Kalyan Galvan Unavailable Unavailable Lashae Trevino [facility] Unavailable [phone] Eduardo Sharma MD Unavailable Rios Monteiro MD Unavailable [phone] Marcelo Artis PA-C Unavailable [phone] Rodrigo Man PA-C Unavailable [phone] Jeana-JdNoreen castro APRN PROBATION AGENT Unavailable Sudha Greene NP Primary Care Provider [phone] Agatha NullM, Podiatry /Foot and Ankle Surgery Unavailable [facility] Unavailable Encounter Details Date Type Department Care Team (Late st Contact Info) Description 07/21/2010 [facility] [place] [phone] Selma Good APRN PROBATION AGENT [address] [place] [address] [place] [address] Social History Tobacco Use Types Packs/Day Years [...] as of this encounter Care Teams Director Private Music Therapy Agency Relationship Specialty Start Date End Date Selma Good APRN PROBATION AGENT [address] [place] [address] [place] [address] PCP - General 04/09/08 04/07/15 Vanda Guerrero MD [address] [place] [address] [place] [address] PCP - General Internal Medicine 04/08/15 01/08/19 Vanda Guerrero MD [address] [place] [address] [place] [address] PCP - Assigned PCP 07/24/16 06/15/18 Noreen Flores APRN PROBATION AGENT [address] [place] [address] [place] [address] PCP - Assigned PCP 06/16/18 08/13/18 Noreen Flores APRN PROBATION AGENT [address] [place] [address] [place] [address] PCP - General Nurse Practitioner 01/09/19 12/12/21 Sudha Greene NP [address] [address] PCP - General 11/01/22 Noreen Flores APRN PROBATION AGENT [address] [place] [address] [place] [address] Assigned PCP 06/16/18 05/26/22 Kalyan Galvan Personal Advocate & Liaison (PAL) 08/08/19 04/26/21 [facility] [address] [place] [address] [place] [phone] Pharmacist Pharmacist 10/14/19 12/01/20 Eduardo Sharma MD 6363 [facility] 103 [place] [address] Assigned Sleep Provider 04/02/2005/07 [place] [address] [place] [address] [place] [address] Assigned Musculoskeletal Provider 04/02/20 08/24/20 Marcelo Artis PARejiC [address] [place] [address] [place] [address] Assigned Musculoskeletal Provider 08/25/20 08/20/21 Rodrigo Man PA-C [address] [place] [address] Assigned Surgical Provider 08/25/20 11/27/20 Noreen Flores APRN PROBATION AGENT [address]305 [facility] [place] [address] Assigned PCP 08/05/22 03/16/23 Agatha Null DPM, Podiatry/Foot and Ankle Surgery [address] [place] [address] [place] [address] Assigned Musculoskeletal Provider 11/04/22 [facility] 3305 [facility] [place] [address] Assigned PCP 07/05/23 documented as of this encounter
--- OUTSIDE RECORDS SUMMARY | 2023-10-19 16:35 | XMS_ITS | Encounter Summary ---
Author Name Unknown Organization [place] Address [address] [place] [address] Care Team Providers Care Engine Wiper Name Role Phone Selma Good APRN CLERICAL ADVISER Primary Care Pro vider Vanda Guerrero MD Primary Care Provider [phone] Vanda Guerrero MD Unavailable [phone] Jeana-JdNoreen castro APRN, CNP Unavailable Jeana-JdNoreen castro APRN, CNP Unavailable Jeana-JdNoreen castro APRN CLERICAL ADVISER Primary Car e Provider Kalyan Galvan Unavailable Unavailable Lashae Trevino [facility] Unavailable [phone] Eduardo Sharma MD Unavailable Rios Monteiro MD Unavailable [phone] Marcelo Artis PA-C Unavailable [phone] Rodrigo Man PA-C Unavailable [phone] Jeana-JdNoreen castro APRN CLERICAL ADVISER Unavailable Sudha Greene NP Primary Care Provider Agatha NullM, Podiatry /Foot and Ankle Surgery Unavailable [facility] Unavailable Encounter Details Date Type Department Care Team (Late st Contact Info) Description 09/24/2014 [facility] Medical Advice [address] [place] [phone] Shante Joya, RN [...] documented as of this encounter Care Teams Engine Wiper Relationship Specialty Start Date End Date Selma Good APRN CLERICAL ADVISER 3305 [facility] [place] [address] PCP - General 04/09/08 04/07/15 Vanda Guerrero MD 3305 [facility] [place] [address] PCP - General Internal Medicine 04/08/15 01/08/19 Vanda Guerrero MD [facility]5 [facility] [place] [address] PCP - Assigned PCP 07/24/16 06/15/18 Noreen Flores APRN CLERICAL ADVISER 3305 [facility] [place] [address] PCP - Assigned PCP 06/16/18 08/13/18 Noreen Flores APRN CLERICAL ADVISER [address] [place] [address] [place] [address] PCP - General Nurse Practitioner 01/09/19 12/12/21 Sudha Greene NP [address] [address] PCP - General 11/01/22 Noreen Flores APRN CLERICAL ADVISER [address] [place] [address] [place] [address] Assigned PCP 06/16/18 05/26/22 Kalyan Galvan Personal Advocate & Liaison (PAL) 08/08/19 04/26/21 Lashae Trevino [facility] [address] [place] [address] [place] [address] Pharmacist Pharmacist 10/14/19 12/01/20 Eduardo Sharma MD [address] [address] Assigned Sleep Provider 04/02/2005/07 [place] [address] [place] [address] Assigned Musculoskeletal Provider 04/02/20 08/24/20 Marcelo Artis PA-C [address] [address] Assigned Musculoskeletal Provider 08/25/20 08/20/21 Rodrigo Man PA-C [address] [place] [address] Assigned Surgical Provider 08/25/20 11/27/20 Noreen Flores APRN CLERICAL ADVISER 3305 [facility] [place] [address] Assigned PCP 08/05/22 03/16/23 Agatha Null DPM, Podiatry/Foot and Ankle Surgery [address] [place] [address] [place] [address] Assigned Musculoskeletal Provider 11/04/22 [facility] - [facility] [place] [address] [facility] [place] [address] Assigned PCP 07/05/23 documented as of this encounter
--- OUTSIDE RECORDS SUMMARY | 2023-10-19 16:35 | XMS_ITS | Encounter Summary ---
Author Name Unknown Organization [place] Address [address] [place] [address] Care Team Providers Care Punch Press Feeder Name Role Phone Selma Good APRN REPORTING SPECIALIST Primary Care Pro vider Vanda Guerrero MD Primary Care Provider [phone] Vanda Guerrero MD Unavailable [phone] Jeana-JdNoreen castro APRN, CNP Unavailable Jeana-JdNoreen castro APRN, CNP Unavailable Jeana-JdNoreen castro APRN REPORTING SPECIALIST Primary Car e Provider Kalyan Galvan Unavailable Unavailable Lashae Trevino [facility] Unavailable [phone] Eduardo Sharma MD Unavailable Rios Monteiro MD Unavailable [phone] Marcelo Artis PA-C Unavailable [phone] Rodrigo Man PA-C Unavailable [phone] Jeana-JdNoreen castro APRN REPORTING SPECIALIST Unavailable Sudha Greene NP Primary Care Provider Agatha NullM, Podiatry /Foot and Ankle Surgery Unavailable [facility] [place] [facility] Unavailable Encounter Details Date Type Department Care Team (Late st Contact Info) Description 12/05/2012 [facility] [place] [address] [place] [phone] Alejo Casas Social History [...] as of this encounter Care Teams Punch Press Feeder Relationship Specialty Start Date End Date Selma Good APRN REPORTING SPECIALIST 3305 [facility] [place] [address] PCP - General 04/09/08 04/07/15 Vanda Guerrero MD [address] [place] [address] [place] [address] PCP - General Internal Medicine 04/08/15 01/08/19 Vanda Guerrero MD [address] [place] [address] [place] [address] PCP - Assigned PCP 07/24/16 06/15/18 Noreen Flores APRN REPORTING SPECIALIST [facility]5 [facility] [place] [address] PCP - Assigned PCP 06/16/18 08/13/18 Noreen Flores APRN REPORTING SPECIALIST [address] [place] [address] [place] [address] PCP - General Nurse Practitioner 01/09/19 12/12/21 Sudha Greene NP [address] [address] PCP - General 11/01/22 Noreen Flores APRN REPORTING SPECIALIST [address] [place] [address] [place] [address] Assigned PCP 06/16/18 05/26/22 Kalyan Galvan Personal Advocate & Liaison (PAL) 08/08/19 04/26/21 [facility] [address] [place] [address] [place] [address] Pharmacist Pharmacist 10/14/19 12/01/20 Eduardo Sharma MD [address] [address] Assigned Sleep Provider 04/02/2005/07 Rios [place] MD [address] [place] [address] 300 [place] [address] Assigned Musculoskeletal Provider 04/02/20 08/24/20 Marcelo Artis PA-C [address] [facility] 300 [place] [address] Assigned Musculoskeletal Provider 08/25/20 08/20/21 Rodrigo Man PA-C [address] [place] [address] Assigned Surgical Provider 08/25/20 11/27/20 Noreen Flores APRN REPORTING SPECIALIST 3305 [facility] [place] [address] Assigned PCP 08/05/22 03/16/23 Agatha Null DPM, Podiatry/Foot and Ankle Surgery [address] [place] 818627 Assigned Musculoskeletal Provider 11/04/22 [facility] - [facility] 3305 [facility] [place] [address] Assigned PCP 07/05/23 documented as of this encounter
--- OUTSIDE RECORDS SUMMARY | 2023-10-19 16:35 | XMS_ITS | Encounter Summary ---
Author Name Unknown Organization [place] Address [address] [place] [address] Care Team Providers Care Metallurgical Lab Technician Name Role Phone Selma Good APRN TRUCK BRACER Primary Care Pro vider Vanda Guerrero MD Primary Care Provider [phone] Vanda Guerrero MD Unavailable [phone] Jeana-JdNoreen castro APRN, CNP Unavailable Jeana-JdNoreen castro APRN, CNP Unavailable Jeana-JdNoreen castro APRN TRUCK BRACER Primary Car e Provider Kalyan Galvan Unavailable Unavailable Lashae Trevino [facility] Unavailable [phone] Eduardo Sharma MD Unavailable Rios Monteiro MD Unavailable [phone] Marcelo Artis-Aleyda Unavailable [phone] Rodrigo Man-C Unavailable [phone] Jeana-JdNoreen castro APRN TRUCK BRACER Unavailable Sudha Greene NP Primary Care Provider Agatha NullM, Podiatry /Foot and Ankle Surgery Unavailable [facility] Unavailable Reason for Visit * Reason Onset Date Comments Medication Dosage Adjustment 08/18/2013 dec gavine Metformin Encounter Details Date Type Department Care Team (Late st Contact Info) Description 08/18/2013 [facility] [address] [place] [address] [place] [phone] Selma Good APRN TRUCK BRACER 3305 [facility] [place] [address] Medication Dosage Adjustment (decrease Met... Social History [...] RN - 08/18/2013 2:08 PM CDT See [employer] message below. I updated the medication [...] documented as of this encounter Care Teams Metallurgical Lab Technician Relationship Specialty Start Date End Date Selma Good APRN TRUCK BRACER [facility] [place] [address] PCP - General 04/09/08 04/07/15 Vanda Guerrero MD [address] [place] [address] [place] [address] PCP - General Internal Medicine 04/08/15 01/08/19 Vanda Guerrero MD [address] [place] [address] [place] [address] PCP - Assigned PCP 07/24/16 06/15/18 Noreen Flores APRN TRUCK BRACER [address] [place] [address] [place] [address] PCP - Assigned PCP 06/16/18 08/13/18 Noreen Flores APRN TRUCK BRACER [address] [place] [address] [place] [address] PCP - General Nurse Practitioner 01/09/19 12/12/21 Sudha Greene, [place] [address] [address] PCP - General 11/01/22 Noreen Flores, SEAN TRUCK BRACER [address] [place] [address] [place] [address] Assigned PCP 06/16/18 05/26/22 Kalyan Galvan Personal Advocate & Liaison (PAL) 08/08/19 04/26/21 Lashae Trevino [facility] [address] [place] [address] Pharmacist Pharmacist 10/14/19 12/01/20 Eduardo Sharma MD [address] [place] [address] [place] [address] Assigned Sleep Provider 04/02/2005/07 Rios Monteiro MD [address] [place] [address] Assigned Musculoskeletal Provider 04/02/20 08/24/20 Marcelo Artis PA-C [address] [place] [address] Assigned Musculoskeletal Provider 08/25/20 08/20/21 Rodrigo Man PA-C [address] [facility] [facility] 450 [place] [address] Assigned Surgical Provider 08/25/20 11/27/20 Noreen Flores APRN TRUCK BRACER [address] [place] [address] [place] [address] Assigned PCP 08/05/22 03/16/23 Agatha Null DPM, Podiatry/Foot and Ankle Surgery [address] [place] [address] 300 [place] [address] Assigned Musculoskeletal Provider 11/04/22 [facility] - [facility] [address] [place] [address] [place] [address] Assigned PCP 07/05/23 documented as of this encounter
--- OUTSIDE RECORDS SUMMARY | 2023-10-19 16:35 | XMS_ITS | Encounter Summary ---
Author Name Unknown Organization [facility] Address [address] [place] [address] Care Team Providers Care Masonry Installer Name Role Phone Selma Good APRN TELEPHONE SALES REPRESENTATIVE Primary Care Pro vider Vanda Guerrero MD Primary Care Provider [phone] Vanda Guerrero MD Unavailable [phone] Jeana-JdNoreen castro APRN, CNP Unavailable Jeana-JdNoreen castro APRN, CNP Unavailable Jeana-JdNoreen castro APRN TELEPHONE SALES REPRESENTATIVE Primary Car e Provider Kalyan Galvan Unavailable Unavailable Lashae Trevino [facility] Unavailable [phone] Eduardo Sharma MD Unavailable Rios Monteiro MD Unavailable [phone] Marcelo Artis-Aleyda Unavailable [phone] Rodrigo Man-C Unavailable [phone] Jeana-JdNoreen castro APRN TELEPHONE SALES REPRESENTATIVE Unavailable Sudha Greene NP Primary Care Provider Agatha NullM, Podiatry /Foot and Ankle Surgery Unavailable [facility] Unavailable Reason for Visit * Reason Onset Date Comments Medication Question 05/29/2012 wellbutrin Encounter Details Date Type Department Care Team (Late st Contact Info) Description 05/29/2012 MyC Medical Advice [address] [place] [phone] Selma Good, CANAL EQUIPMENT MAINTENANCE SUPERVISOR TELEPHONE SALES REPRESENTATIVE [address] [place] [address] [place] [id number] Medication Question (wellbutrin) Social History Tobacco Use [...] documented as of this encounter Care Teams Masonry Installer Relationship Specialty Start Date End Date Selma Good, CANAL EQUIPMENT MAINTENANCE SUPERVISOR TELEPHONE SALES REPRESENTATIVE [address] [place] [address] [place] [address] PCP - General 04/09/08 04/07/15 Vanda Guerrero MD [address] [place] [address] [place] 11583 PCP - General Internal Medicine 04/08/15 01/08/19 Vanda Guerrero MD [address] [place] [address] [place] 62058 PCP - Assigned PCP 07/24/16 06/15/18 Noreen Flores APRN TELEPHONE SALES REPRESENTATIVE [address] [place] [address] [place] [address] PCP - Assigned PCP 06/16/18 08/13/18 Noreen Flores APRN TELEPHONE SALES REPRESENTATIVE [address] [place] [address] [place] [address] PCP - General Nurse Practitioner 01/09/19 12/12/21 Sudha Greene NP [address] [address] PCP - General 11/01/22 Noreen Flores APRN TELEPHONE SALES REPRESENTATIVE [address] [place] [address] [place] [address] Assigned PCP 06/16/18 05/26/22 Kalyan Galvan Personal Advocate & Liaison (PAL) 08/08/19 04/26/21 [facility] [address] [place] [address] [place] [phone] Pharmacist Pharmacist 10/14/19 12/01/20 Eduardo Sharma MD [address] [facility] 103 [place] 125145 Assigned Sleep Provider 04/02/2005/07 [place] [address] [facility] 300 [place] 409657 Assigned Musculoskeletal Provider 04/02/20 08/24/20 Marcelo Artis PA-C [address] [facility] 300 [place] [address] Assigned Musculoskeletal Provider 08/25/20 08/20/21 Rodrigo Man PA-C 6545 [address] [facility] 450 [place] [address] Assigned Surgical Provider 08/25/20 11/27/20 Noreen Flores APRN CNP [address] [place] [address] [place] [address] Assigned PCP 08/05/22 03/16/23 Agatha Null DPM, Podiatry/Foot and Ankle Surgery 63517 [facility] 300 [place] [address] Assigned Musculoskeletal Provider 11/04/22 [facility] 3305 [facility] [place] [id number] Assigned PCP 07/05/23 documented as of this encounter
--- OUTSIDE RECORDS SUMMARY | 2023-10-19 16:35 | XMS_ITS | Encounter Summary ---
Author Name Unknown Organization [facility] Address [address] [place] [address] Care Team Providers Care Manager Sign Name Role Phone Selma Good APRN ATHLETIC INSTRUCTOR Primary Care Pro vider Vanda Guerrero MD Primary Care Provider [phone] Vanda Guerrero MD Unavailable [phone] Jeana-JdNoreen castro APRN, CNP Unavailable Jeana-JdNoreen castro APRN, CNP Unavailable Jeana-JdNoreen castro APRN ATHLETIC INSTRUCTOR Primary Car e Provider Kalyan Galvan Unavailable Unavailable Lashae Trevino [facility] Unavailable [phone] Eduardo Sharma MD Unavailable Rios Monteiro MD Unavailable [phone] Marcelo Artis-Aleyda Unavailable [phone] Rodrigo Man-C Unavailable [phone] Jeana-JdNoreen castro APRN ATHLETIC INSTRUCTOR Unavailable Sudha Greene NP Primary Care Provider Agatha NullM, Podiatry /Foot and Ankle Surgery Unavailable [facility] Unavailable Reason for Visit * Reason Onset Date Comments Symptoms 03/07/2012 uti Encounter Details Date Type Department Care Team (Late st Contact Info) Description 03/07/2012 [facility] [address] [place] [address] [place] [phone] Selma Good, SEAN ATHLETIC INSTRUCTOR [address] [facility] [place] [address] Symptoms (uti) Social History Tobacco Use Types [...] as of this encounter Care Teams Manager Sign Relationship Specialty Start Date End Date Selma Good, SEAN ATHLETIC INSTRUCTOR [address] [place] [address] [place] [address] PCP - General 04/09/08 04/07/15 Vanda Guerrero MD [address] [place] [address] [place] [address] PCP - General Internal Medicine 04/08/15 01/08/19 Vanda Guerrero MD [address] [place] [address] [place] [address] PCP - Assigned PCP 07/24/16 06/15/18 Noreen Flores APRN ATHLETIC INSTRUCTOR [address] [place] [address] [place] [address] PCP - Assigned PCP 06/16/18 08/13/18 Noreen Flores APRN ATHLETIC INSTRUCTOR [address] [place] [address] [place] [address] PCP - General Nurse Practitioner 01/09/19 12/12/21 Sudha Greene NP [address] [place] [address] [address] PCP - General 11/01/22 Noreen Flores APRN ATHLETIC INSTRUCTOR [address] [place] [address] [place] [address] Assigned PCP 06/16/18 05/26/22 Kalyan Galvan Personal Advocate & Liaison (PAL) 08/08/19 04/26/21 [facility] [address] [place] [address] [place] [phone] Pharmacist Pharmacist 10/14/19 12/01/20 Eduardo Sharma MD 6[address] [facility] [address] [place] [address] Assigned Sleep Provider 04/02/2005/07 Rios Monteiro MD [address] [place] [address] [id number] Assigned Musculoskeletal Provider 04/02/20 08/24/20 Marcelo Artis, PA-C [address] [facility] 300 [place] [address] Assigned Musculoskeletal Provider 08/25/20 08/20/21 Rodrigo Man PA-C 6545 [address] [facility] 450 [place] [address] Assigned Surgical Provider 08/25/20 11/27/20 Noreen Flores APRN ATHLETIC INSTRUCTOR [address] [facility] [place] [address] Assigned PCP 08/05/22 03/16/23 Agatha Null DPM, Podiatry/Foot and Ankle Surgery [address] [place] 300 [place] [address] Assigned Musculoskeletal Provider 11/04/22 [facility] - [facility] [address] [facility] DAVID ORDOÑEZ [phone] Assigned PCP 07/05/23 documented as of this encounter
--- OUTSIDE RECORDS SUMMARY | 2023-10-19 16:35 | XMS_ITS | Encounter Summary ---
Author Name Unknown Organization [facility] Address [address] [place] [address] Care Team Providers Care Polymer Tester Name Role Phone Selma Good APRN WHOLESALE AGRONOMIST Primary Care Pro vider Vanda Guerrero MD Primary Care Provider [phone] Vanda Guerrero MD Unavailable [phone] Jeana-JdNoreen castro APRN, CNP Unavailable Jeana-JdNoreen castro APRN, CNP Unavailable Jeana-DjNoreen castro APRN WHOLESALE AGRONOMIST Primary Car e Provider Kalyan Galvan Unavailable Unavailable Lashae Trevino [facility] Unavailable [phone] Eduardo Sharma MD Unavailable Rios Monteiro MD Unavailable [phone] Marcelo Artis-Aleyda Unavailable [phone] Rodrigo Man-C Unavailable [phone] Jeana-JdNoreen castro APRN WHOLESALE AGRONOMIST Unavailable Sudha Greene NP Primary Care Provider Agatha NullM, Podiatry /Foot and Ankle Surgery Unavailable [facility] Unavailable Reason for Visit * Reason Onset Date Comments Foot Problems 03/19/2014 numb Encounter Details Date Type Department Care Team (Late st Contact Info) Description 03/19/2014 [facility] [address] [place] [address] [place] [phone] Selma Good APRN WHOLESALE AGRONOMIST 3305 [facility] [place] [address] Foot Problems (numb) Social History Tobacco Use [...] documented as of this encounter Care Teams Polymer Tester Relationship Specialty Start Date End Date Selma Good APRN WHOLESALE AGRONOMIST [address] [place] [address] [place] [address] PCP - General 04/09/08 04/07/15 Vanda Guerrero MD [address] [place] [address] [place] [address] PCP - General Internal Medicine 04/08/15 01/08/19 Vanda Guerrero MD [address] [place] [address] [place] [address]65[address] PCP - Assigned PCP 07/24/16 06/15/18 Noreen Flores APRN WHOLESALE AGRONOMIST [address] [place] [address] [place] [address] PCP - Assigned PCP 06/16/18 08/13/18 Noreen Flores APRN WHOLESALE AGRONOMIST [address] [place] [address] [place] [address] PCP - General Nurse Practitioner 01/09/19 12/12/21 Sudha Greene NP [address] [address] PCP - General 11/01/22 Noreen Flores APRN WHOLESALE AGRONOMIST [address] [place] [address] [place] [address] Assigned PCP 06/16/18 05/26/22 Kalyan Galvan Personal Advocate & Liaison (PAL) 08/08/19 04/26/21 [facility] [address] [place] [address] [place] [address] Pharmacist Pharmacist 10/14/19 12/01/20 Eduardo Sharma MD [address] [place] [address] Assigned Sleep Provider 04/02/2005/07 Rios Monteiro MD [address] [place] [address] 300 [place], [place] 403307 Assigned Musculoskeletal Provider 04/02/20 08/24/20 Marcelo Artis, PA-C [address] [place] [address] 300 [place] [address] Assigned Musculoskeletal Provider 08/25/20 08/20/21 Rodrigo Man PA-C 6545 [address] G[address]IA [facility] 450 [place] [address] Assigned Surgical Provider 08/25/20 11/27/20 Noreen Flores APRN WHOLESALE AGRONOMIST 3305 [facility] [place] [address] Assigned PCP 08/05/22 03/16/23 Agatha Null DPM, Podiatry/Foot and Ankle Surgery [address] [place] 300 [place] [address] Assigned Musculoskeletal Provider 11/04/22 [facility] - [facility] 3305 [facility] [place] [id number] Assigned PCP 07/05/23 documented as of this encounter
--- OUTSIDE RECORDS SUMMARY | 2023-10-19 16:35 | XMS_ITS | Encounter Summary ---
Author Name Unknown Organization [facility] Address [address] [place] [address] Care Team Providers Care Manager Garden Name Role Phone Selma Good APRN APPLIANCE SERVICER Primary Care Pro vider Vanda Guerrero MD Primary Care Provider [phone] Vanda Guerrero MD Unavailable [phone] Jeana-JdNoreen castro APRN, CNP Unavailable Jeana-JdNoreen castro APRN, CNP Unavailable Jeana-JdNoreen castro APRN APPLIANCE SERVICER Primary Car e Provider Kalyan Galvan Unavailable Unavailable Lashae Trevino [facility] Unavailable [phone] Eduardo Sharma MD Unavailable Rios Monteiro MD Unavailable [phone] Marcelo Artis PA-C Unavailable [phone] Rodrigo Man PA-C Unavailable [phone] Jeana-JdNoreen castro APRN APPLIANCE SERVICER Unavailable Sudha Greene NP Primary Care Provider [phone] Agatha NullM, Podiatry /Foot and Ankle Surgery Unavailable [facility] [place] Unavailable Encounter Details Date Type Department Care Team (Late st Contact Info) Description 07/12/2012 MyC Medical Advice [facility] [place] [phone] Selma Good APRN APPLIANCE SERVICER [address] [place] [address] [place] [address] Social History Tobacco Use Types Packs/Day Years [...] as of this encounter Care Teams Manager Garden Relationship Specialty Start Date End Date Selma Good APRN APPLIANCE SERVICER [address] [place] [address] [place] [address] PCP - General 04/09/08 04/07/15 Vanda Guerrero MD [address] [place] [address] [place] [address] PCP - General Internal Medicine 04/08/15 01/08/19 Vanda Guerrero MD [address] [place] [address] [place] [address]08[address] PCP - Assigned PCP 07/24/16 06/15/18 Noreen Flores APRN APPLIANCE SERVICER [address] [place] [address] [place] [address] PCP - Assigned PCP 06/16/18 08/13/18 Noreen Flores APRN APPLIANCE SERVICER [address] [place] [address] [place] [address] PCP - General Nurse Practitioner 01/09/19 12/12/21 Sudha Greene, MAURICIO [address] [address] PCP - General 11/01/22 Noreen Folres APRN APPLIANCE SERVICER [address] [place] [address] [place] [address] Assigned PCP 06/16/18 05/26/22 Kalyan Galvan Personal Advocate & Liaison (PAL) 08/08/19 04/26/21 [facility] [address] [place] [address] [place] [phone] Pharmacist Pharmacist 10/14/19 12/01/20 Eduardo Sharma MD 6363 [facility] 103 [place] [address] Assigned Sleep Provider 04/02/2005/07 [place] [address] [place] [address] [place] [address] Assigned Musculoskeletal Provider 04/02/20 08/24/20 Marcelo Artis, PA-C [address] [place] [address] [place] [address] Assigned Musculoskeletal Provider 08/25/20 08/20/21 Rodrigo Man PA-C [address]45 [address] [place] 450 [place] [address] Assigned Surgical Provider 08/25/20 11/27/20 Noreen Flores APRN APPLIANCE SERVICER 3305 [facility] [place] [address] Assigned PCP 08/05/22 03/16/23 Agatha Null DPM, Podiatry/Foot and Ankle Surgery [address] [place] [address] [place] [address] Assigned Musculoskeletal Provider 11/04/22 [facility] - [facility] 3305 [facility] [place] [address] Assigned PCP 07/05/23 documented as of this encounter
--- OUTSIDE RECORDS SUMMARY | 2023-10-19 16:35 | XMS_ITS | Encounter Summary ---
Author Name Unknown Organization [facility] Address [address] [place] [address] Care Team Providers Care Tile Molder Hand Name Role Phone Selma Good APRN PRESCHOOL LEAD TEACHER Primary Care Pro vider Vanda Guerrero MD Primary Care Provider [phone] Vanda Guerrero MD Unavailable [phone] Jeana-JdNoreen castro APRN, CNP Unavailable Jeana-JdNoreen castro APRN, CNP Unavailable Jeana-JdNoreen castro APRN PRESCHOOL LEAD TEACHER Primary Car e Provider Kalyan Galvan Unavailable Unavailable Lashae Trevino [facility] Unavailable [phone] Eduardo Sharma MD Unavailable Rios Monteiro MD Unavailable [phone] Marcelo Artis PA-C Unavailable [phone] Rodrigo Man PA-C Unavailable [phone] Jeana-JdNoreen castro APRN PRESCHOOL LEAD TEACHER Unavailable Sudha Greene NP Primary Care Provider Agatha NullM, Podiatry /Foot and Ankle Surgery Unavailable [facility] Unavailable Encounter Details Date Type Department Care Team (Late st Contact Info) Description 05/21/2013 [facility] Medical Advice [address] [place] [phone] Alejo Casas Social History [...] as of this encounter Care Teams Tile Molder Hand Relationship Specialty Start Date End Date Selma Good APRN PRESCHOOL LEAD TEACHER 3305 [facility] [place] [address] PCP - General 04/09/08 04/07/15 Vanda Guerrero MD [address] [place] [address] [place] [address] PCP - General Internal Medicine 04/08/15 01/08/19 Vanda Guerrero MD [address] [place] [address] [place] [address]794 PCP - Assigned PCP 07/24/16 06/15/18 Noreen Flores APRN PRESCHOOL LEAD TEACHER [facility] [place] [address] PCP - Assigned PCP 06/16/18 08/13/18 Noreen Flores APRN PRESCHOOL LEAD TEACHER [address] [place] [address] [place] [address] PCP - General Nurse Practitioner 01/09/19 12/12/21 Sudha Greene NP [address] [address] PCP - General 11/01/22 Noreen Flores APRN PRESCHOOL LEAD TEACHER [address] [place] [address] [place] [address] Assigned PCP 06/16/18 05/26/22 Kalyan Galvan Personal Advocate & Liaison (PAL) 08/08/19 04/26/21 [facility] [address] [place] [address] [place] [address] Pharmacist Pharmacist 10/14/19 12/01/20 Eduardo Sharma MD [address] [address] Assigned Sleep Provider 04/02/2005/07 [place] [id number] [place] [address] 300 [place] [address] Assigned Musculoskeletal Provider 04/02/20 08/24/20 Marcelo Artis PA-C [address] [facility] 300 [place] [address] Assigned Musculoskeletal Provider 08/25/20 08/20/21 Rodrigo Man PA-C 6545 [address] [place] 450 [place] [address] Assigned Surgical Provider 08/25/20 11/27/20 Noreen Flores APRN PRESCHOOL LEAD TEACHER 3305 [facility] [place] [address] Assigned PCP 08/05/22 03/16/23 Agatha Null DPM, Podiatry/Foot and Ankle Surgery [address] [place] 300 [place] 987387 Assigned Musculoskeletal Provider 11/04/22 [facility] - [facility] 3305 [facility] [place] [address] Assigned PCP 07/05/23 documented as of this encounter
--- OUTSIDE RECORDS SUMMARY | 2023-10-19 16:35 | XMS_ITS | Encounter Summary ---
Author Name Unknown Organization [facility] Address [address] [place] [address] Care Team Providers Care Story Editor Name Role Phone Selma Good APRN PRIMER AND POWDER CANNING LEADER Primary Care Pro vider Vanda Guerrero MD Primary Care Provider [phone] Vanda Guerrero MD Unavailable [phone] Jeana-JdNoreen castro APRN, CNP Unavailable Jeana-JdNoreen castro APRN, CNP Unavailable Jeana-JdNoreen castro APRN PRIMER AND POWDER CANNING LEADER Primary Car e Provider Kalyan Galvan Unavailable Unavailable Lashae Trevino [facility] Unavailable [phone] Eduardo Sharma MD Unavailable Rios Monteiro MD Unavailable [phone] Marcelo Artis PA-C Unavailable [phone] Rodrigo Man PA-C Unavailable [phone] Jeana-JdNoreen castro APRN PRIMER AND POWDER CANNING LEADER Unavailable Sudha Greene NP Primary Care Provider Agatha NullM, Podiatry /Foot and Ankle Surgery Unavailable [facility] Unavailable Encounter Details Date Type Department Care Team (Late st Contact Info) Description 08/17/[address] [facility] [address] [place] [phone] Day Greene APRN PRIMER AND POWDER CANNING LEADER [address] [place] [address] [address] [place] [address] Social History Tobacco Use Types Packs/Day Years [...] documented as of this encounter Care Teams Story Editor Relationship Specialty Start Date End Date Selma Good APRN PRIMER AND POWDER CANNING LEADER [address] [place] [address] [place] [address] PCP - General 04/09/08 04/07/15 Vanda Guerrero MD [address] [place] [address] [place] [address] PCP - General Internal Medicine 04/08/15 01/08/19 Vadna Guerrero MD [address] [place] [address] [place] [address] PCP - Assigned PCP 07/24/16 06/15/18 Noreen Flores APRN PRIMER AND POWDER CANNING LEADER [address] [place] [address] [place] [address] PCP - Assigned PCP 06/16/18 08/13/18 Noreen Flores APRN PRIMER AND POWDER CANNING LEADER [address] [place] [address] [place] [address] PCP - General Nurse Practitioner 01/09/19 12/12/21 Sudha Greene, MAURICIO [address] [address] PCP - General 11/01/22 Noreen Flores APRN PRIMER AND POWDER CANNING LEADER [address] [place] [address] [place] [address] Assigned PCP 06/16/18 05/26/22 Kalyan Galvan Personal Advocate & Liaison (PAL) 08/08/19 04/26/[address] [facility] [address] [place] [address] [place] [phone] Pharmacist Pharmacist 10/14/19 12/01/20 Eduardo Sharma MD [address] [address] [place] [address] Assigned Sleep Provider 04/02/2005/07 [place] [address] [facility] 300 [place], [place] 576957 Assigned Musculoskeletal Provider 04/02/20 08/24/20 Marcelo Artis, PA-C [address]38[address] [facility] 300 [place], [place] 184247 Assigned Musculoskeletal Provider 08/25/20 08/20/21 Rodrigo Man PA-C [address] [place] 450 [place] [address] Assigned Surgical Provider 08/25/20 11/27/20 Noreen Flores APRN PRIMER AND POWDER CANNING LEADER 3305 [facility] [place] [address] Assigned PCP 08/05/22 03/16/23 Agatha Null DPM, Podiatry/Foot and Ankle Surgery [address] [place] [address] [place] [address] Assigned Musculoskeletal Provider 11/04/22 [facility] - [facility] 3305 [facility] [place] [address] Assigned PCP 07/05/23 documented as of this encounter
--- OUTSIDE RECORDS SUMMARY | 2023-10-19 16:35 | XMS_ITS | Encounter Summary ---
Author Name Unknown Organization [facility] Address [address] [place] [address] Care Team Providers Care Electrician Radio Name Role Phone Vanda Guerrero MD Primary Care Provider [phone] Vanda Guerrero MD Unavailable [phone] Jeana-Noreen Miles APRN PORCELAIN WAXER Unavailable [facility]-Noreen Miles APRN PORCELAIN WAXER Unavailable [facility]-JdNoreen castro APRN PORCELAIN WAXER Primary Car e Provider Kalyan Galvan Unavailable Unavailable Lashae Trevino [facility] Unavailable Eduardo Sharma MD Unavailable Rios Monteiro MD Unavailable [phone] Marcelo Artis-C Unavailable [phone] Rodrigo Man-C Unavailable [phone] Jeana-Noreen Miles APRN PORCELAIN WAXER Unavailable Sudha Greene NP Primary Care Provider Agatha Null DPM, Podiatry /Foot and Ankle Surgery Unavailable [facility] Unavailable Reason for Referral * Consultation - Closed Specialty Diagnoses / Procedures Referred By Rylie t Referred To Contact Diagnoses Cervicalgia History of lumbar fusion History of fusion of cervical spine Vanda Guerrero MD [address] [facility] [place] [address] [facility] [address] [facility] [address] [place] [address] Referral ID Status Reason Start Date Expiration Date Visits Re quested Visits Authorized [id number] Closed 04/27/2015 04/26/2016 1 1 Comments [facility] is referring you to the Orthopedic Treating Plant Pumper Services at [facility]. The Treating Plant Pumper Lead Setter will assist you in the coordination of your Orthopedic and Musculoskeletal Care as prescribed by your physician. The Treating Plant Pumper Lead Setter will call you within 24 hours to help schedule your appointment, or you may contact the Treating Plant Pumper Lead Setter at: [facility] ~ [facility] ~ [facility] ~ Type of Referral : Spine: Cervical / Thoracic: Medical Beauty Advisor Timeframe requested: Routine Coverage of these services is subject to the terms and limitations of your health insurance plan. Please call member services at your health plan with any benefit or coverage questions. If X-rays, CT or MRI's have been performed, please contact the facility where they were done to arrange for tile picker, prior to your scheduled appointment. Please bring this referral request to your appointment and present it to your specialist. GER UTILITY Reason for Visit * Reason Onset Date Comments Leg Pain 04/27/2015 Encounter Details Date Type Department Care Team (Late st Contact Info) Description 04/27/2015 MyC Medical Advice [facility] [address] [facility] [place] [address] Vanda Guerrero MD [address] [facility] [place] [address] Leg Pain Social [...] Kallie Mishra RN - 04/27/2015 5:20 PM MANAGER UTILITY Entered referral, sent [employer] message to update the patient. GER UTILITY * Telephone Encounter - Vanda Guerrero MD - 04/27/2015 3:16 PM MANAGER UTILITY Recommend FSOC evaluation in the next 1-2 weeks. GER UTILITY * Telephone Encounter - Kallie Mishra RN - 04/27/2015 3:14 PM MANAGER UTILITY Would you recommend re-evaluation due to new symptoms? GER UTILITY documented in this encounter Plan of Treatment [...] as of this encounter Care Teams Electrician Radio Relationship Specialty Start Date End Date Vanda Guerrero MD [address] [facility] [place] [address] PCP - General Internal Medicine 04/08/15 01/08/19 Vanda Guerrero MD [address] [facility] [place] [address] PCP - Assigned PCP 07/24/16 06/15/18 Noreen Flores APRN PORCELAIN WAXER [address] [place] [address] [place] [address] PCP - Assigned PCP 06/16/18 08/13/18 Noreen Flores APRN PORCELAIN WAXER [address] [place] [address] [place] [address] PCP - General Nurse Practitioner 01/09/19 12/12/21 Sudha Greene NP [address] [address] PCP - General 11/01/22 Noreen Flores APRN PORCELAIN WAXER [address] [place] [address] [place] [address] Assigned PCP 06/16/18 05/26/22 Kalyan Galvan Personal Advocate & Liaison (PAL) 08/08/19 04/26/21 Lashae Trevino, [facility] [address] [facility] [place] [address] Pharmacist Pharmacist 10/14/19 12/01/20 Eduardo Sharma MD [address] [facility] [address] [place], [place] [address] Assigned Sleep Provider 04/02/2005/07 [place] [address] [facility] [address] [place] [address] Assigned Musculoskeletal Provider 04/02/20 08/24/20 Marcelo Artis PA-C [address] [facility] [address] [place] [address] Assigned Musculoskeletal Provider 08/25/20 08/20/21 Rodrigo Man PA-C [address] [facility] [address] [place] [address] Assigned Surgical Provider 08/25/20 11/27/20 Noreen Flores APRN PORCELAIN WAXER [address] [place] [address] [place] [id number] Assigned PCP 08/05/22 03/16/23 Agatha Null DPM, Podiatry/Foot and Ankle Surgery [address] [facility] [facility] 300 [place] [address] Assigned Musculoskeletal Provider 11/04/22 [facility] [place] [facility] [address] [place] [address] [place] [id number] Assigned PCP 07/05/23 documented as of this encounter
--- OUTSIDE RECORDS SUMMARY | 2023-10-19 16:35 | XMS_ITS | Encounter Summary ---
Author Name Unknown Organization [place] Address [address] [place] [address] Care Team Providers Care Plastics Factory Worker Name Role Phone Selma Good APRN ASSOCIATE PROFESSOR OF ARCHAEOLOGY Primary Care Pro vider Vanda Guerrero MD Primary Care Provider [phone] Vanda Guerrero MD Unavailable [phone] Jeana-JdNoreen castro APRN, CNP Unavailable Jeaan-JdNoreen castro APRN, CNP Unavailable Jeana-JdNoreen castro APRN ASSOCIATE PROFESSOR OF ARCHAEOLOGY Primary Car e Provider Kalyan Galvan Unavailable Unavailable Lashae Trevino [facility] Unavailable [phone] Eduardo Sharma MD Unavailable Rios Monteiro MD Unavailable [phone] Marcelo Artis-Aleyda Unavailable [phone] Rodrigo Man-C Unavailable [phone] Jeana-JdNoreen castro APRN ASSOCIATE PROFESSOR OF ARCHAEOLOGY Unavailable Sudha Greene NP Primary Care Provider Agatha NullM, Podiatry /Foot and Ankle Surgery Unavailable [facility] [employer] Unavailable Reason for Visit * Reason Onset Date Comments Vaginal Problem 05/24/2011 itchy -worse wit h cream Encounter Details Date Type Department Care Team (Late st Contact Info) Description 05/24/2011 MyC Medical Advice [address] [place] [address] Selma Good, NETWORK SYSTEMS ADMINISTRATOR ASSOCIATE PROFESSOR OF ARCHAEOLOGY [address] [facility] [place] [address] Vaginal Problem (itchy -worse with cream ) [...] documented as of this encounter Care Teams Plastics Factory Worker Relationship Specialty Start Date End Date Selma Good, NETWORK SYSTEMS ADMINISTRATOR ASSOCIATE PROFESSOR OF ARCHAEOLOGY [address] [place] [address] [place] [address] PCP - General 04/09/08 04/07/15 Vanda Guerrero MD [address] [place] [address] [place] [address] PCP - General Internal Medicine 04/08/15 01/08/19 Vanda Guerrero MD [address] [place] [address] [place] [address] PCP - Assigned PCP 07/24/16 06/15/18 Noreen Flores APRN ASSOCIATE PROFESSOR OF ARCHAEOLOGY [address] [facility] [place] [address] PCP - Assigned PCP 06/16/18 08/13/18 Noreen Flores APRN ASSOCIATE PROFESSOR OF ARCHAEOLOGY [address] [place] [address] [place] [address] PCP - General Nurse Practitioner 01/09/19 12/12/21 Sudha Greene NP [address] [address] PCP - General 11/01/22 Noreen Flores APRN ASSOCIATE PROFESSOR OF ARCHAEOLOGY [address] [place] [address] [place] [address] Assigned PCP 06/16/18 05/26/22 Kalyan Galvan Personal Advocate & Liaison (PAL) 08/08/19 04/26/21 [facility] [address] [place] [address] [place] [address] Pharmacist Pharmacist 10/14/19 12/01/20 Eduardo Sharma MD 6363 [facility] 103 [place] [address] Assigned Sleep Provider 04/02/2005/07 [place] [address] [facility] 300 [place] [address] Assigned Musculoskeletal Provider 04/02/20 08/24/20 Marcelo Artis PA-C [address] [facility] [address] [place] [address] Assigned Musculoskeletal Provider 08/25/20 08/20/21 Rodrigo Man PA-C [address] [facility] [address] [place] [address] Assigned Surgical Provider 08/25/20 11/27/20 Noreen Flores APRN ASSOCIATE PROFESSOR OF ARCHAEOLOGY [address] [facility] [place] [id number] Assigned PCP 08/05/22 03/16/23 Agatha Null DPM, Podiatry/Foot and Ankle Surgery [address] [facility] [address] [place] [address] Assigned Musculoskeletal Provider 11/04/22 [facility] [place] [facility] 3[address] [facility] [place] [id number] Assigned PCP 07/05/23 documented as of this encounter
--- OUTSIDE RECORDS SUMMARY | 2023-10-19 16:35 | XMS_ITS | Encounter Summary ---
Author Name Unknown Organization [facility] Address [address] [place] [address] Care Team Providers Care Drafter Civil (Cad) Name Role Phone Selma Good APRN REFINER OPERATOR Primary Care Pro vider Vanda Guerrero MD Primary Care Provider [phone] Vanda Guerrero MD Unavailable [phone] Jeana-JdNoreen castro APRN, CNP Unavailable Jeana-JdNoreen castro APRN, CNP Unavailable Jeana-JdNoreen castro APRN REFINER OPERATOR Primary Car e Provider Kalyan Galvan Unavailable Unavailable Lashae Trevino [facility] Unavailable [phone] Eduardo Sharma MD Unavailable Rios Monteiro MD Unavailable [phone] Marcelo Artis-Aleyda Unavailable [phone] Rodrigo Man-C Unavailable [phone] Jeana-JdNoreen castro APRN REFINER OPERATOR Unavailable Sudha Greene NP Primary Care Provider Agatha NullM, Podiatry /Foot and Ankle Surgery Unavailable [facility] Unavailable Reason for Visit * Reason Onset Date Comments Medication Problem 06/22/2014 amitriptline side effects Encounter Details Date Type Department Care Team (Late st Contact Info) Description 06/22/2014 [facility] [address] [place] [address] [place] [address] Selma Good, SOLAR SALES AMBASSADOR REFINER OPERATOR [address] [facility] [place] [address] Medication Problem (amitriptline side effe... Social History [...] documented as of this encounter Care Teams Drafter Civil (Cad) Relationship Specialty Start Date End Date Selma Good, SEAN REFINER OPERATOR [address] [place] [address] [place] [address] PCP - General 04/09/08 04/07/15 Vanda Guerrero MD [address] [place] [address] [place] [address] PCP - General Internal Medicine 04/08/15 01/08/19 Vanda Guerrero MD [address] [place] [address] [place] [address] PCP - Assigned PCP 07/24/16 06/15/18 Noreen Flores APRN REFINER OPERATOR [address] [facility] [place] [address] PCP - Assigned PCP 06/16/18 08/13/18 Noreen Flores APRN REFINER OPERATOR [address] [facility] [place] [address] PCP - General Nurse Practitioner 01/09/19 12/12/21 Sudha Greene, [place] [address] [address] PCP - General 11/01/22 Noreen Flores APRN REFINER OPERATOR [address] [place] [address] [place] [address] Assigned PCP 06/16/18 05/26/22 Kalyan Galvan Personal Advocate & Liaison (PAL) 08/08/19 04/26/21 Lashae Trevino, [facility] 1440 [facility] [place] [address] Pharmacist Pharmacist 10/14/19 12/01/20 Eduardo Sharma MD 6363 [facility] 103 [place] [address] Assigned Sleep Provider 04/02/2005/07 [place] [address] [facility] 300 [place] [address] Assigned Musculoskeletal Provider 04/02/20 08/24/20 Marcelo Artis PA-C 640[address] [facility] [address] [place] [address] Assigned Musculoskeletal Provider 08/25/20 08/20/21 Rodrigo Man PA-C [address] [facility] [address] [place] [address] Assigned Surgical Provider 08/25/20 11/27/20 Noreen Flores APRN REFINER OPERATOR [address] [facility] [place] [id number] Assigned PCP 08/05/22 03/16/23 Agatha Null DPM, Podiatry/Foot and Ankle Surgery [address] [facility] [address] [place] [address] Assigned Musculoskeletal Provider 11/04/22 [facility] - [facility] [place] [facility] 3[address] [facility] [place] [id number] Assigned PCP 07/05/23 documented as of this encounter
--- OUTSIDE RECORDS SUMMARY | 2023-10-19 16:35 | XMS_ITS | Encounter Summary ---
Author Name Unknown Organization [place] Address [address] [place] [address] Care Team Providers Care Manager Quality Improvement Name Role Phone Selma Good APRN FLAT IRONER Primary Care Pro vider Vanda Guerrero MD Primary Care Provider [phone] Vanda Guerrero MD Unavailable [phone] Jeana-JdNoreen castro APRN, CNP Unavailable Jeana-JdNoreen castro APRN, CNP Unavailable Jeana-JdNoreen castro APRN FLAT IRONER Primary Car e Provider Kalyan Galvan Unavailable Unavailable Lashae Trevino [facility] Unavailable [phone] Eduardo Sharma MD Unavailable Rios Monteiro MD Unavailable [phone] Marcelo Artis-Aleyda Unavailable [phone] Rodrigo Man-C Unavailable [phone] Jeana-JdNoreen castro APRN FLAT IRONER Unavailable Sudha Greene NP Primary Care Provider [phone] Agatha NullM, Podiatry /Foot and Ankle Surgery Unavailable [facility] Unavailable Reason for Visit * Reason Onset Date Comments Medication Question 10/06/2014 lisinopril Refill Request 10/06/2014 OT lancets and s trips Encounter Details Date Type Department Care Team (Late st Contact Info) Description 10/06/2014 MyC Medical Advice [facility] 1440 [facility] [place] [phone] Selma Good, MAINTENANCE FITTER [address] [place] [address] Medication Question (lisinopril); Refill R... Social History [...] PM CDT Appointment today with Kenyon GUEVARA, SUPERVISOR SLITTING AND SHIPPING: 5. Hypertension goal BP (blood pressure) < [...] as of this encounter Care Teams Manager Quality Improvement Relationship Specialty Start Date End Date Selma Good APRN FLAT IRONER [facility]5 [facility] [place] [address] PCP - General 04/09/08 04/07/15 Vanda Guerrero MD [address] [place] [address] [place] [address] PCP - General Internal Medicine 04/08/15 01/08/19 Vanda Guerrero MD [address] [place] [address] [place] [address] PCP - Assigned PCP 07/24/16 06/15/18 Noreen Flores APRN FLAT IRONER [address] [place] [address] [place] [address] PCP - Assigned PCP 06/16/18 08/13/18 Noreen Flores APRN FLAT IRONER [address] [place] [address] [place] [address] PCP - General Nurse Practitioner 01/09/19 12/12/21 Sudha Greene NP [address] [address] PCP - General 11/01/22 Noreen Flores APRN FLAT IRONER 3305 [facility] [place] [address] Assigned PCP 06/16/18 05/26/22 Kalyan Galvan Personal Advocate & Liaison (PAL) 08/08/19 04/26/21 [facility] [address] [place] [address] [place] [address] Pharmacist Pharmacist 10/14/19 12/01/20 Eduardo Sharma MD [address] [place] [address] [place] [address] Assigned Sleep Provider 04/02/2005/07 [place] [address] [place] [address] [place] [address] Assigned Musculoskeletal Provider 04/02/20 08/24/20 Marcelo Artis PA-C [address] [place] [address] [place] [address] Assigned Musculoskeletal Provider 08/25/20 08/20/21 Rodrigo Man PA-C [address] [place] [address] [place] [address] Assigned Surgical Provider 08/25/20 11/27/20 Noreen Flores APRN FLAT IRONER [facility]5 [facility] [place] [address] Assigned PCP 08/05/22 03/16/23 Agatha Null DPM, Podiatry/Foot and Ankle Surgery [address] [place] [address] Assigned Musculoskeletal Provider 11/04/22 [facility] - [facility] [place] [address] [place] [address] Assigned PCP 07/05/23 documented as of this encounter
--- OUTSIDE RECORDS SUMMARY | 2023-10-19 16:35 | XMS_ITS | Encounter Summary ---
Author Name Unknown Organization [place] Address [address] [place] [address] Care Team Providers Care Icing Mixer Name Role Phone Selma Good APRN DRYWALL MECHANIC Primary Care Pro vider Vanda Guerrero MD Primary Care Provider [phone] Vanda Guerrero MD Unavailable [phone] Jeana-JdNoreen castro APRN, CNP Unavailable Jeana-JdNoreen castro APRN, CNP Unavailable Jeana-JdNoreen castro APRN DRYWALL MECHANIC Primary Car e Provider Kalyan Galvan Unavailable Unavailable Lashae Trevino [facility] Unavailable [phone] Eduardo Sharma MD Unavailable Rios Monteiro MD Unavailable [phone] Marcelo Artis PA-C Unavailable [phone] Rodrigo Man PA-C Unavailable [phone] Jeana-DjNoreen castro APRN DRYWALL MECHANIC Unavailable Sudha Greene NP Primary Care Provider Agatha NullM, Podiatry /Foot and Ankle Surgery Unavailable [facility] Unavailable Encounter Details Date Type Department Care Team (Late st Contact Info) Description 02/11/2010 [facility] Advice [place] [address] [facility] [place] [phone] Alejo Casas Social History [...] documented as of this encounter Care Teams Icing Mixer Relationship Specialty Start Date End Date Selma Good APRN DRYWALL MECHANIC [address] [place] [address] [place] [address] PCP - General 04/09/08 04/07/15 Vanda Guerrero MD [address] [place] [address] [place] [address] PCP - General Internal Medicine 04/08/15 01/08/19 Vanda Guerrero MD [address] [place] [address] [place] [address] PCP - Assigned PCP 07/24/16 06/15/18 Noreen Flores APRN DRYWALL MECHANIC [address] [place] [address] [place] [address] PCP - Assigned PCP 06/16/18 08/13/18 Noreen Flores APRN DRYWALL MECHANIC 3305 [facility] [place] [address] PCP - General Nurse Practitioner 01/09/19 12/12/21 Sudha Greene NP [address] [address] PCP - General 11/01/22 Noreen Flores APRN DRYWALL MECHANIC [address] [place] [address] [place] [address] Assigned PCP 06/16/18 05/26/22 Kalyan Galvan Personal Advocate & Liaison (PAL) 08/08/19 04/26/21 [facility] [address] [place] [address] [place] [address] Pharmacist Pharmacist 10/14/19 12/01/20 Eduardo Sharma MD [address] [place] [address] [place] [address] Assigned Sleep Provider 04/02/2005/07 [place] [address] [facility] [place] [address] [place] [address] Assigned Musculoskeletal Provider 04/02/20 08/24/20 Marcelo Artis PA-C [address] [facility] [place] [address] [place] [address] Assigned Musculoskeletal Provider 08/25/20 08/20/21 Rodrigo Man PA-C [address] [place] [address] [place] [address] Assigned Surgical Provider 08/25/20 11/27/20 Noreen Flores APRN DRYWALL MECHANIC 3305 [facility] [place] [address] Assigned PCP 08/05/22 03/16/23 Agatha Null DPM, Podiatry/Foot and Ankle Surgery [address] [place] [address] [place] [id number] Assigned Musculoskeletal Provider 11/04/22 [facility] [place] [facility] [address] [facility] [address] [place] [address] Assigned PCP 07/05/23 documented as of this encounter
--- OUTSIDE RECORDS SUMMARY | 2023-10-19 16:36 | XMS_ITS | Encounter Summary ---
Author Name Unknown Organization [facility] Address [address] [place] [address] Care Team Providers Care Wind Turbine Design Engineer Name Role Phone Selma Good APRN SPECIAL DELIVERY WORKER Primary Care Pro vider Vanda Guerrero MD Primary Care Provider [phone] Vanda Guerrero MD Unavailable [phone] Jeana-JdNoreen castro APRN, CNP Unavailable Jeana-JdNoreen castro APRN, CNP Unavailable Jeana-JdNoreen castro APRN SPECIAL DELIVERY WORKER Primary Car e Provider Kalyan Galvan Unavailable Unavailable Lashae Trevino [facility] Unavailable [phone] Eduardo Sharma MD Unavailable Rios Monteiro MD Unavailable [phone] Marcelo Artis-Aleyda Unavailable [phone] Rodrigo Man-C Unavailable [phone] Jeana-JdNoreen castro APRN SPECIAL DELIVERY WORKER Unavailable Sudha Greene NP Primary Care Provider [phone] Agatha NullM, Podiatry /Foot and Ankle Surgery Unavailable [facility] Unavailable Reason for Referral * Referral not Required - Closed Specialty Diagnoses / Procedures Referred By Rylie t Referred To Contact Diagnoses Migraine headaches Selma Good APRN SPECIAL DELIVERY WORKER [address] [facility] [place] [address] [facility] [address] [place] [address] Referral ID Status Reason Start Date Expiration Date Visits Re quested Visits Authorized [id number] Closed 09/18/2008 06/10/2011 1 1 Comments Coverage of these services is subject to the terms and limitations of your health insurance plan. Please call member services at your health plan with any benefit or coverage questions. [facility] referral to [facility] at [phone]. . Any CT, MRI or procedures ordered by your specialist must be performed at a [facility] facility OR coordinated by your clinic's referral office at [phone]. If X-rays, CTs or MRIs have been performed, please contact the facility where they were done, to arrange for coal picker prior to your scheduled appointment. Please bring this referral request to your appointment and present it to your specialist. Reason for Visit * Reason Onset Date Comments Medication Request 09/17/2008 migraine med Encounter Details Date Type Department Care Team (Late st Contact Info) Description 09/17/2008 [facility] Medical Advice [facility] [address] [facility] [place] [address] Selma Good, SEAN SPECIAL DELIVERY WORKER [address] [facility] [place] [id number] Medication Request (migraine med) Social History Tobacco [...] sent to patient with phone number for [facility]. Ivette Allan M.A. * Telephone Encounter - Selma Good - 09/18/2008 8:18 AM CDT It appears in my note from when I saw her, I recommended referral to neuro, which she declined at that time. It appears imitrex 'knocked her out.' I would recommend [facility] neurology. documented in this encounter Plan of Treatment Not on file documented as of this encounter Procedures Procedure Name Priority Date/Time Associated Diagnosis Comments ZZ CONSULT NEUROLOGY Routine 11/15/2010 Migraine headaches documented in this encounter Results * CONSULT NEUROLOGY (11/15/2010) Selma Good BRANCH ADMINISTRATOR SPECIAL DELIVERY WORKER REFERRAL documented in this encounter Visit Diagnoses Diagnosis Migraine headaches- Primary Migraine, unspecified, without mention of intractable migraine without mention of status migrainosus documented in this encounter Additional Health Concerns Infection Onset Date Last Indicated Resolved Time Rule Out COVID-19 08/25/2020 08/25/2020 08/26/2020 3:23 PM CDT Rule Out COVID-19 11/26/2022 11/26/2022 11/27/2022 3:38 PM CDT documented as of this encounter Care Teams Wind Turbine Design Engineer Relationship Specialty Start Date End Date Selma Good BRANCH ADMINISTRATOR SPECIAL DELIVERY WORKER [address] [facility] [place] [address] PCP - General 04/09/08 04/07/15 Vanda Guerrero MD [address] [facility] [place] [address] PCP - General Internal Medicine 04/08/15 01/08/19 Vanda Guerrero MD [address] [place] [address] [place] [address] PCP - Assigned PCP 07/24/16 06/15/18 Noreen Flores APRN SPECIAL DELIVERY WORKER [address] [place] [address] [place] [address] PCP - Assigned PCP 06/16/18 08/13/18 Noreen Flores APRN SPECIAL DELIVERY WORKER [address] [place] [address] [place] [address] PCP - General Nurse Practitioner 01/09/19 12/12/21 Sudha Greene, MAURICIO [address] [address] PCP - General 11/01/22 Noreen Flores APRN SPECIAL DELIVERY WORKER [address] [place] [address] [place] [address] Assigned PCP 06/16/18 05/26/22 Kalyan Galvan Personal Advocate & Liaison (PAL) 08/08/19 04/26/21 Lashae Trevino, [facility] [address] [facility] [place] [address] Pharmacist Pharmacist 10/14/19 12/01/20 Eduardo Sharma MD [address] [place] [address] [place] [address] Assigned Sleep Provider 04/02/2005/07 [place] [address] [place] [address] Assigned Musculoskeletal Provider 04/02/20 08/24/20 Marcelo Artis PA-C [address] [facility] [address] [place] [address] Assigned Musculoskeletal Provider 08/25/20 08/20/21 Rodrigo Man PA-C [address] [facility] [address] [place] [address] Assigned Surgical Provider 08/25/20 11/27/20 Noreen Flores APRN SPECIAL DELIVERY WORKER [address] [place] [address] [place] [address] Assigned PCP 08/05/22 03/16/23 Agatha Null DPM, Podiatry/Foot and Ankle Surgery [address] [place] [address] [facility] [address] [place] [address] Assigned Musculoskeletal Provider 11/04/22 [facility] [place] [facility] [address] [facility] [place] [id number] Assigned PCP 07/05/23 documented as of this encounter
--- OUTSIDE RECORDS SUMMARY | 2023-10-19 16:36 | XMS_ITS | Encounter Summary ---
Author Name Unknown Organization [facility] Address [address], [place] [address] Care Team Providers Care Temperature Logging Operator Name Role Phone Unassigned, Provider Primary Care Provider Unava ilable Encounter Details Date Type Department Care Team (Latest Contact Info) Description 07/26/2004 [facility] Gavin Justice MD [address] [place] [address] Social History Tobacco Use Types Packs/Day Years [...] * Jerome Garg - 07/26/2004 12:00 AM PUBLICITY DIRECTOR DATE OF SURGERY: 07/26/2004 STAFF SURGEON: Gavin [...] nerve impingement. Therefore, she is referred to [facility] pain clinic for evaluation for epidural steroid [...] Justice MD Transcribed: 07/26/2004 14:26:15 Doc #: [id number] cc: Jose Colin DO, Primary/Referring DO NOT SIGN UNLESS PRESENT FOR PROCEDURE I attest that I was present for and participated in the ma portions of this procedure(s) in compliance with the Health Care Financing Administration Teaching Physician Guidelines. Signed Date Regions Staff Physician 1 Page 2 Patient Name: PADMINI CHOI Visit Date: 07/26/2004 OUTPATIENT OPERATIVE REPORT CONFIDENTIAL MEDICAL RECORD [facility] [address] [place] [address] Page 1 Patient: [facility]ADMINI [id number] Date of : 1965 Visit Date: 07/26/2004 OUTPATIENT OPERATIVE REPORT documented in this encounter Plan of Treatment Not on file documented as of this encounter Visit Diagnoses Not on filedocumented in this encounter Care Teams Temperature Logging Operator Relationship Specialty Start Date End Date Unassigned, Provider [address] [place] [address] PCP - General 09/18/08 documented as of this encounter
--- OUTSIDE RECORDS SUMMARY | 2023-10-19 16:36 | XMS_ITS | Encounter Summary ---
Author Name Unknown Organization [facility] Address [address] [place] [address] Care Team Providers Care Typing Checker Name Role Phone Selma Good APRN INTEGRATION PROJECT MANAGER Primary Care Pro vider Vanda Guerrero MD Primary Care Provider [phone] Vanda Guerrero MD Unavailable [phone] Jeana-JdNoreen castro APRN, CNP Unavailable Jeana-JdNoreen castro APRN, CNP Unavailable Jeana-JdNoreen castro APRN INTEGRATION PROJECT MANAGER Primary Car e Provider Kalyan Galvan Unavailable Unavailable Lashae Trevino [facility] Unavailable [phone] Eduardo Sharma MD Unavailable Rios Monteiro MD Unavailable [phone] Marcelo Artis PA-C Unavailable [phone] Rodrigo Man PA-C Unavailable [phone] Jeana-JdNoreen castro APRN INTEGRATION PROJECT MANAGER Unavailable Sudha Greene NP Primary Care Provider Agatha NullM, Podiatry /Foot and Ankle Surgery Unavailable [facility] Unavailable Encounter Details [...] documented as of this encounter Care Teams Typing Checker Relationship Specialty Start Date End Date Selma Good APRN INTEGRATION PROJECT MANAGER [address] [place] [address] [place] [address] PCP - General 04/09/08 04/07/15 Vanda Guerrero MD [address] [place] [address] [place] [address] PCP - General Internal Medicine 04/08/15 01/08/19 Vanda Guerrero MD [address] [place] [address] [place] [address] PCP - Assigned PCP 07/24/16 06/15/18 Noreen Flores APRN INTEGRATION PROJECT MANAGER [address] [place] [address] [place] [address] PCP - Assigned PCP 06/16/18 08/13/18 Noreen Flores APRN INTEGRATION PROJECT MANAGER [facility] [place] [address] PCP - General Nurse Practitioner 01/09/19 12/12/21 Sudha Greene NP [address] [address] PCP - General 11/01/22 Noreen Flores APRN INTEGRATION PROJECT MANAGER [address] [facility] [place] [address] Assigned PCP 06/16/18 05/26/22 Kalyan Galvan Personal Advocate & Liaison (PAL) 08/08/19 04/26/21 Lashae Trevino [facility] [address] [place] [address] [place] [phone] Pharmacist Pharmacist 10/14/19 12/01/20 Eduardo Sharma MD [address] [place] [place] [id number] Assigned Sleep Provider 04/02/2005/07 [place] [address] [facility] [address] [place] [address] Assigned Musculoskeletal Provider 04/02/20 08/24/20 Marcelo Artis PA-C [address] [facility] [address] [place] [address] Assigned Musculoskeletal Provider 08/25/20 08/20/21 Rodrigo Man PA-C [address] [place] [address] [place] [address] Assigned Surgical Provider 08/25/20 11/27/20 Noreen Flores APRN INTEGRATION PROJECT MANAGER [address] [facility] [place] [address] Assigned PCP 08/05/22 03/16/23 Agatha Null DPM, Podiatry/Foot and Ankle Surgery [address] [place] [address] Assigned Musculoskeletal Provider 11/04/22 [facility] [place] [address] [facility] [place] [address] Assigned PCP 07/05/23 documented as of this encounter
--- OUTSIDE RECORDS SUMMARY | 2023-10-19 16:36 | XMS_ITS | Encounter Summary ---
Author Name Unknown Organization [facility] Address [address] [place] [address] Care Team Providers Care Cage Operator Name Role Phone Selma Good APRN TRADE PROMOTION ANALYST Primary Care Pro vider Vanda Guerrero MD Primary Care Provider [phone] Vanda Guerrero MD Unavailable [phone] Jeana-JdNoreen castro APRN, CNP Unavailable Jeana-JdNoreen castro APRN, CNP Unavailable Jeana-JdNoreen castro APRN TRADE PROMOTION ANALYST Primary Car e Provider Kalyan Galvan Unavailable Unavailable Lashae Trevino [facility] Unavailable [phone] Eduardo Sharma MD Unavailable Rios Monteiro MD Unavailable [phone] Marcelo Artis PA-C Unavailable [phone] Rodrigo Man PA-C Unavailable [phone] Jeana-JdNoreen castro APRN TRADE PROMOTION ANALYST Unavailable Sudha Greene NP Primary Care Provider Agatha uNllM, Podiatry /Foot and Ankle Surgery Unavailable [facility] Unavailable Encounter Details Date Type Department [...] documented as of this encounter Care Teams Cage Operator Relationship Specialty Start Date End Date Selma Good APRN TRADE PROMOTION ANALYST [address] [place] [address] [place] [address] PCP - General 04/09/08 04/07/15 Vanda Guerrero MD [address] [place] [address] [place] [address] PCP - General Internal Medicine 04/08/15 01/08/19 Vanda Guerrero MD [address] [place] [address] [place] [address] PCP - Assigned PCP 07/24/16 06/15/18 Noreen Flores APRN TRADE PROMOTION ANALYST [address] [place] [address] [place] [address] PCP - Assigned PCP 06/16/18 08/13/18 Noreen Flores APRN TRADE PROMOTION ANALYST [address] [place] [address] [place] [address] PCP - General Nurse Practitioner 01/09/19 12/12/21 Sudha Greene NP [address] [address] PCP - General 11/01/22 Noreen Flores APRN TRADE PROMOTION ANALYST [address] [facility] [place] [address] Assigned PCP 06/16/18 05/26/22 Kalyan Galvan Personal Advocate & Liaison (PAL) 08/08/19 04/26/21 Lashae Trevino, [facility] [address] [facility] [place] [address] Pharmacist Pharmacist 10/14/19 12/01/20 Eduardo Sharma MD [address] [place] [address] Assigned Sleep Provider 04/02/2005/07 [place] [address] [facility] [address] [place] [address] Assigned Musculoskeletal Provider 04/02/20 08/24/20 Marcelo Artis PA-C [address] [place] [address] [place] [address] Assigned Musculoskeletal Provider 08/25/20 08/20/21 Rodrigo Man PA-C [address] [place] [address] [place] [address] Assigned Surgical Provider 08/25/20 11/27/20 Noreen Flores APRN TRADE PROMOTION ANALYST [address] [facility] [place] [address] Assigned PCP 08/05/22 03/16/23 Agatha Null DPM, Podiatry/Foot and Ankle Surgery [address] [place] [address] Assigned Musculoskeletal Provider 11/04/22 [facility] - [facility] [place] [address] [facility] [place] [id number] Assigned PCP 07/05/23 documented as of this encounter
--- OUTSIDE RECORDS SUMMARY | 2023-10-19 16:36 | XMS_ITS | Encounter Summary ---
Author Name Unknown Organization [facility] Address [address] [place] [address] Care Team Providers Care Chief Cruiser Name Role Phone Selma Good APRN MANAGER EMPLOYEE BENEFITS Primary Care Pro vider Vanda Guerrero MD Primary Care Provider [phone] Vanda Guerrero MD Unavailable [phone] Jeana-JdNoreen castro APRN, CNP Unavailable Jeana-JdNoreen castro APRN, CNP Unavailable Jeana-JdNoreen castro APRN MANAGER EMPLOYEE BENEFITS Primary Car e Provider Kalyan Galvan Unavailable Unavailable Lashae Trevino [facility] Unavailable [phone] Eduardo Sharma MD Unavailable Rios Monteiro MD Unavailable [phone] Marcelo Artis-Aleyda Unavailable [phone] Rodrigo Man-C Unavailable [phone] Jeana-JdNoreen castro APRN MANAGER EMPLOYEE BENEFITS Unavailable Sudha Greene NP Primary Care Provider Agatha NullM, Podiatry /Foot and Ankle Surgery Unavailable [facility] Unavailable Reason for Visit * Reason Onset Date Comments Orders 01/17/2010 mammo and U/Ss Encounter Details Date Type Department Care Team (Late st Contact Info) Description 01/17/2010 [facility] [address] [place] [address] [place] [address] Selma Good APRN MANAGER EMPLOYEE BENEFITS [address] [facility] [place] [address] Orders (mammo and U/Ss) Social History Tobacco [...] as of this encounter Care Teams Chief Cruiser Relationship Specialty Start Date End Date Selma Good, SEAN MANAGER EMPLOYEE BENEFITS [address] [place] [address] [place] [address] PCP - General 04/09/08 04/07/15 Vanda Guerrero MD [address] [place] [address] [place] [address] PCP - General Internal Medicine 04/08/15 01/08/19 Vanda Guerrero MD [address] [place] [address] [place] [address] PCP - Assigned PCP 07/24/16 06/15/18 Noreen Flores APRN MANAGER EMPLOYEE BENEFITS [address] [place] [address] [place] [address] PCP - Assigned PCP 06/16/18 08/13/18 Noreen Flores APRN MANAGER EMPLOYEE BENEFITS [address] [place] [address] [place] [address] PCP - General Nurse Practitioner 01/09/19 12/12/21 Sudha Greene NP [address] [address] PCP - General 11/01/22 Noreen Flores APRN MANAGER EMPLOYEE BENEFITS [address] [place] [address] [place] [address] Assigned PCP 06/16/18 05/26/22 Kalyan Galvan Personal Advocate & Liaison (PAL) 08/08/19 04/26/21 [facility] [address] [place] [address] [place] [address] Pharmacist Pharmacist 10/14/19 12/01/20 Eduardo Sharma MD [address] [address] Assigned Sleep Provider 04/02/2005/07 Rios Monteiro MD [address] [place] [address] Assigned Musculoskeletal Provider 04/02/20 08/24/20 Marcelo Artis, PA-C [address] [place] [address] [place] [address] Assigned Musculoskeletal Provider 08/25/20 08/20/21 Rodrigo Man PA-C [address] [facility] [address] [place] [address] Assigned Surgical Provider 08/25/20 11/27/20 Noreen Flores APRN MANAGER EMPLOYEE BENEFITS [address] [facility] [place] [address] Assigned PCP 08/05/22 03/16/23 Agatha Null DPM, Podiatry/Foot and Ankle Surgery [address] [facility] [address] [place] [address] Assigned Musculoskeletal Provider 11/04/22 [facility] [address] [facility] [address] [place] [id number] Assigned PCP 07/05/23 documented as of this encounter
--- OUTSIDE RECORDS SUMMARY | 2023-10-19 16:36 | XMS_ITS | Encounter Summary ---
Author Name Unknown Organization [facility] Address [address] [place] [address] Care Team Providers Care Lead Former Name Role Phone Selma Good APRN HUMAN SERVICE COORDINATOR Primary Care Pro vider Vanda Guerrero MD Primary Care Provider [phone] Vanda Guerrero MD Unavailable [phone] Jeana-JdNoreen castro APRN, CNP Unavailable Jeana-JdNoreen castro APRN, CNP Unavailable Jeana-JdNoreen castro APRN HUMAN SERVICE COORDINATOR Primary Car e Provider Kalyan Galvan Unavailable Unavailable Lashae Trevino [facility] Unavailable [phone] Eduardo Sharma MD Unavailable Rios Monteiro MD Unavailable [phone] Marcelo Artis PA-C Unavailable [phone] Rodrigo Man PA-C Unavailable [phone] Jeana-JdNoreen castro APRN HUMAN SERVICE COORDINATOR Unavailable Sudha Greene NP Primary Care Provider Agatha NullM, Podiatry /Foot and Ankle Surgery Unavailable [facility] Unavailable Encounter Details Date Type Department Care Team (Late st Contact Info) Description 01/11/2010 [facility] [place] [address] [facility] [place] [id number] Alejo Casas Social [...] as of this encounter Care Teams Lead Former Relationship Specialty Start Date End Date Selma Good APRN HUMAN SERVICE COORDINATOR [address] [place] [address] [place] [address] PCP - General 04/09/08 04/07/15 Vanda Guerrero MD [address] [place] [address] [place] [address] PCP - General Internal Medicine 04/08/15 01/08/19 Vanda Guerrero MD [address] [place] [address] [place] [address] PCP - Assigned PCP 07/24/16 06/15/18 Noreen Flores APRN HUMAN SERVICE COORDINATOR [address] [place] [address] [place] [address] PCP - Assigned PCP 06/16/18 08/13/18 Noreen Flores APRN HUMAN SERVICE COORDINATOR [address] [facility] [place] [address] PCP - General Nurse Practitioner 01/09/19 12/12/21 Sudha Greene NP [address] [address] PCP - General 11/01/22 Noreen Flores APRN HUMAN SERVICE COORDINATOR [address] [place] [address] [place] [address] Assigned PCP 06/16/18 05/26/22 Kalyan Galvan Personal Advocate & Liaison (PAL) 08/08/19 04/26/21 [facility] [address] [place] [address] [place] [address] Pharmacist Pharmacist 10/14/19 12/01/20 Eduardo Sharma MD [address] [place] [address] Assigned Sleep Provider 04/02/2005/07 [place] [address] [facility] [address] [place] [address] Assigned Musculoskeletal Provider 04/02/20 08/24/20 Marcelo Artis PA-C [address] [facility] [address] [place] [address] Assigned Musculoskeletal Provider 08/25/20 08/20/21 Rodrigo Man PA-C [address] [place] [address] [place] [address] Assigned Surgical Provider 08/25/20 11/27/20 Noreen Flores APRN HUMAN SERVICE COORDINATOR [address] [facility] [place] [address] Assigned PCP 08/05/22 03/16/23 Agatha Null DPM, Podiatry/Foot and Ankle Surgery [address] [place] [address] [place] [address] Assigned Musculoskeletal Provider 11/04/22 [facility] [address] [facility] [address] [place] [address] Assigned PCP 07/05/23 documented as of this encounter
--- OUTSIDE RECORDS SUMMARY | 2023-10-19 16:36 | XMS_ITS | Encounter Summary ---
Author Name Unknown Organization [facility] Address [address] [place] [address] Care Team Providers Care Fine Unhairer Name Role Phone Selma Good APRN DISC JOCKEY Primary Care Pro vider Vanda Guerrero MD Primary Care Provider [phone] Vanda Guerrero MD Unavailable [phone] Jeana-DjNoreen castro APRN, CNP Unavailable Jeana-JdNoreen castro APRN, CNP Unavailable Jeana-JdNoreen castro APRN DISC JOCKEY Primary Car e Provider Kalyan Galvan Unavailable Unavailable Lashae Trevino [facility] Unavailable [phone] Eduardo Sharma MD Unavailable Rios Monteiro MD Unavailable [phone] Marcelo Artis PA-C Unavailable [phone] Rodrigo Man PA-C Unavailable [phone] Jeana-JdNoreen castro APRN DISC JOCKEY Unavailable Sudha Greene NP Primary Care Provider Agatha NullM, Podiatry /Foot and Ankle Surgery Unavailable [facility] Unavailable Encounter Details Date Type Department Care Team (Late st Contact Info) Description 12/14/2009 [facility] [place] 123480 [facility] [place] [id number] Alejo [...] documented as of this encounter Care Teams Fine Unhairer Relationship Specialty Start Date End Date Selma Good APRN DISC JOCKEY [address] [place] [address] [place] [address] PCP - General 04/09/08 04/07/15 Vanda Guerrero MD [address] [place] [address] [place] [address] PCP - General Internal Medicine 04/08/15 01/08/19 Vanda Guerrero MD [address] [place] [address] [place] [address] PCP - Assigned PCP 07/24/16 06/15/18 Noreen Flores APRN DISC JOCKEY [address] [place] [address] [place] [address] PCP - Assigned PCP 06/16/18 08/13/18 Noreen Flores APRN DISC JOCKEY [address] [facility] [place] [address] PCP - General Nurse Practitioner 01/09/19 12/12/21 Sudha Greene NP [address] [address] PCP - General 11/01/22 Noreen Flores APRN DISC JOCKEY [address] [place] [address] [place] [address] Assigned PCP 06/16/18 05/26/22 Kalyan Galvan Personal Advocate & Liaison (PAL) 08/08/19 04/26/21 [facility] [address] [place] [address] [place] [address] Pharmacist Pharmacist 10/14/19 12/01/20 Eduardo Sharma MD [address] [place] [address] [place] [address] Assigned Sleep Provider 04/02/2005/07 [place] [address] [facility] [address] [place] [address] Assigned Musculoskeletal Provider 04/02/20 08/24/20 Marcelo Artis PA-C [address] [facility] [address] [place] [address] Assigned Musculoskeletal Provider 08/25/20 08/20/21 Rodrigo Man PA-C [address] [place] [address] Assigned Surgical Provider 08/25/20 11/27/20 Noreen lFores APRN DISC JOCKEY [address] [facility] [place] [address] Assigned PCP 08/05/22 03/16/23 Agatha Null DPM, Podiatry/Foot and Ankle Surgery [address] [place] [address] [place] 389147 Assigned Musculoskeletal Provider 11/04/22 [facility] [place] [address] [place] [address] Assigned PCP 07/05/23 documented as of this encounter
--- OUTSIDE RECORDS SUMMARY | 2023-10-19 16:36 | XMS_ITS | Encounter Summary ---
Author Name Unknown Organization [place] Address [address] [place] [address] Care Team Providers Care Associate Program Manager Name Role Phone Selma Good APRN NOC ANALYST Primary Care Pro vider Vanda Guerrero MD Primary Care Provider [phone] Vanda Guerrero MD Unavailable [phone] Jeana-JdNoreen castro APRN, CNP Unavailable Jeana-JdNoreen castro APRN, CNP Unavailable Jeana-JdNoreen castro APRN NOC ANALYST Primary Car e Provider Kalyan Galvan Unavailable Unavailable Lashae Trevino [facility] Unavailable [phone] Edurado Sharma MD Unavailable Rios Monteiro MD Unavailable [phone] Marcelo Artis-Aleyda Unavailable [phone] Rodrigo Man-C Unavailable [phone] Jeana-JdNoreen castro APRN NOC ANALYST Unavailable Sudha Greene NP Primary Care Provider Agatha NullM, Podiatry /Foot and Ankle Surgery Unavailable [facility] Unavailable Reason for Visit * Reason Onset Date Comments Patient Request 07/01/2009 Encounter Details Date Type Department Care Team (Late st Contact Info) Description 07/01/2009 [facility] [address] [place] [address] [place] [phone] Selma Good APRN NOC ANALYST [address] [place] [address] [place] [address] Patient Request Social History Tobacco Use Types [...] as of this encounter Care Teams Associate Program Manager Relationship Specialty Start Date End Date Selma Good APRN NOC ANALYST [address] [place] [address] [place] [address] PCP - General 04/09/08 04/07/15 Vanda Guerrero MD [address] [place] [address] [place] [address] PCP - General Internal Medicine 04/08/15 01/08/19 Vanda Guerrero MD [address] [place] [address] [place] [address] PCP - Assigned PCP 07/24/16 06/15/18 Noreen Flores APRN CNP [address] [facility] [place] [address] PCP - Assigned PCP 06/16/18 08/13/18 Noreen Flores APRN NOC ANALYST [address] [place] [address] [place] [address] PCP - General Nurse Practitioner 01/09/19 12/12/21 Sudha Greene NP [address] [address] PCP - General 11/01/22 Noreen Flores APRN NOC ANALYST [address] [place] [address] [place] [address] Assigned PCP 06/16/18 05/26/22 Kalyan Galvan Personal Advocate & Liaison (PAL) 08/08/19 04/26/21 Lashae Trevino, [facility] [address] [place] [address] [place] [phone] Pharmacist Pharmacist 10/14/19 12/01/20 Eduardo Sharma MD [address] [place] [address] Assigned Sleep Provider 04/02/2005/07 [place] [address] [facility] [address] [place], [place] [id number] Assigned Musculoskeletal Provider 04/02/20 08/24/20 Marcelo Artis PA-C [address] [facility] [address] [place], [place] [id number] Assigned Musculoskeletal Provider 08/25/20 08/20/21 Rodrigo Man PA-C [address] [place] [address] Assigned Surgical Provider 08/25/20 11/27/20 Noreen Flores APRN NOC ANALYST [address] [facility] [place] [address] Assigned PCP 08/05/22 03/16/23 Agatha Null DPM, Podiatry/Foot and Ankle Surgery [address] [place] [address] [place] [address] Assigned Musculoskeletal Provider 11/04/22 Clinic - [place] [facility] [address] [facility] [place] [address] Assigned PCP 07/05/23 documented as of this encounter
--- OUTSIDE RECORDS SUMMARY | 2023-10-19 16:36 | XMS_ITS | Clinical Summary ---
Author Name Unknown Organization [facility] Address [address] [place] [address] Care Team Providers Care Trade Economist Name Role Phone Unassigned, Provider Primary Care Provider Unava ilable Source Comments You are receiving this document as you are listed as the primary care provider,follow-up provider, or the patient has been referred to you for consultation.This is in compliance with the Medicare andWilson Memorial Hospitalcaid EHR Incentive Program,which states Providers who transition their patient to another setting of careor provider of care or refers their patient to another provider of care shouldprovide summary care record for each transition of care or referral. [facility] Allergies Active Allergy Reactions Criticality Noted Date [...] 03/09/2011,04/08/2010, 8 Influenza IIV4 (Quadrivalent ) 0.5mL (59401) 06/12/2017,03/23/2016,04/08/2015, 013 PPSV23 (Pneumovax) 10/06/2014 Pfizer Monovalent [...] Comments Blood Pressure 120/62 05/25/2021 11:09 AM WEB PRESS OPERATOR HELPER OFFSET Pulse 59 05/25/2021 11:09 AM WEB PRESS OPERATOR HELPER OFFSET Temperature 36.7 ??C (98.1 ??F) 05/25/2021 1 1:09 AM WEB PRESS OPERATOR HELPER OFFSET Respiratory Rate 16 08/23/2007 1:13 PM CDT Oxygen Saturation 97% 08/23/2007 1:13 PM CDT Inhaled Oxygen Concentration - - Weight 78.8 kg (173 lb 12.8 oz) 021 11:09 AM WEB PRESS OPERATOR HELPER OFFSET Height 160 cm (5' 3) 08/23/2007 1:13 [...] this topic Medical Devices Implanted Type Area Academic Administrator Device Identifier Shelf Expiration Date Model / Serial / Lot Kit Infuse Bone Graft Sm - [id number] Implanted:Qty : 1 on 04/15/2007 at [facility] Left: BACK [employer] [id number] / / [id number] Bone Canc Crushed 60cc - [id number] Implanted:Qty : 1 on 04/15/2007 at [facility] Left: BACK [place] 28165 / OTS [id number] / Device Cage Ray Thrd 12x26 - [id number] Implanted:Qty : 2 on 04/15/2007 at [facility] DEVICE Left: BACK Henna 7-1226 / / [id number] Cage Ray [id number] - [id number] Implanted:Qty : 1 on 04/15/2007 at [facility] Left: BACK Henna 05/11/2008 7-1426 / / [id number] Procedures Procedure Name Priority Date/Time Associated Diagnosis [...] 8:33 AM CDT) Cholesterol 188 <200 mg/dl [facility] Triglyceride 95 <200 mg/dl [facility] HDL 46 >35 mg/dl [facility] LDL, Calc. 123 mg/dl [facility] Hours Fasting 12 hours [facility] 10/07/2005 8:33 AM CDT 10/07/2005 8:34 AM CDT Yun Flynn MD LAB_1 Performing Organization Address City/State/[facility] Phone Number [facility] [address] [place] [phone] * PAP TEST, ROUTINE (10/02/2005 12:00 AM CDT) Cytology, Pap (NOTE) Retort Kiln Burner Cytology Report Patient Name: MEGAN CHOI Taken: 10/02/2005 Received: 10/06/2005 Reported: 10/13/2005 [...] and less commonly, endometrial/uterin e abnormalities. ? [facility]/10/13/2005 Electronically Signed Out By ? Kelly Elmore MD ([id number]) Rakel Valle, ??CT (ASCP) ?Pap Smear History ?Date of Last Menstrual Period: ? 09/22/05 ?Contraceptive History: ?Not Stated/Unknown ?Other Clinical Conditions: ?LAST PAP: N/A HPV reflex testing requested with interpretation of ASCUS ? [facility] 10/02/2005 10/06/2005 9:5 8 AM CDT Yun Flynn MD LAB_1 [place], [place] [phone] * MAMMOGRAM, SCREENING (05/15/2003) Anatomical Region Laterality Modality Breast Other Narrative Transcriptions Dusty Gonsalves - 05/15/2003 12:00 AM CSTCLINICAL DATA: Screening. EXAMINATION: Bilateral mammogram, 05/15/03. ACR BIRADS CATEGORY 1 - NEGATIVE MAMMOGRAM. FINDINGS: Nothing for malignancy. Dusty Gonsalves MD 10:42 A cc: AUDREY Moffett Radiology SP Blank Perez VARNISH FINISHER, OUTER DIAMETER GRINDER TOOL RAD_BI from Last 3 Months or Most Recently Relevant to Health Maintenance Advance Directives * Full Code (Latest Code Status on File) Date Activated Date Inactivated Comments 04/15/2007 8:03 AM 04/19/2007 8:53 PM Care Teams Trade Economist Relationship Specialty Start Date End Date Unassigned, Provider [address] [place] [address] PCP - General 09/18/08
--- OUTSIDE RECORDS SUMMARY | 2023-10-19 16:36 | XMS_ITS | Encounter Summary ---
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 STAFF [...] Justice MD Transcribed: 08/24/2004 07:37:56 Doc #: [id number] cc: Jose Colin, DO, Referring DO NOT SIGN UNLESS PRESENT FOR PROCEDURE I attest that I was present for and participated in the ma portions of this procedure(s) in compliance with the Health Care Financing Administration Teaching Physician Guidelines. Signed Date [facility] Staff Physician 1 Page 2 Patient Name: PADMINI CHOI Visit Date: 08/23/2004 OUTPATIENT OPERATIVE REPORT CONFIDENTIAL MEDICAL RECORD [address] [address] Page 1 Patient: PADMINI CHOI Location: PAIN N: [id number] Date of : 1965 Visit Date: 08/23/2004 OUTPATIENT OPERATIVE REPORT documented in this encounter Plan of Treatment Not on file documented as of this encounter Visit Diagnoses Not on filedocumented in this encounter Care Teams Telephone Supervisor Relationship Specialty Start Date End Date Unassigned, Provider [address] [place] [address] PCP - General 09/18/08 documented as of this encounter
--- OUTSIDE RECORDS SUMMARY | 2023-10-19 16:36 | XMS_ITS | Encounter Summary ---
Author Name Unknown Organization [place] Address [address] [place] [address] Care Team Providers Care Salad Maker Name Role Phone Selma Good APRN CARDIOVASCULAR RN Primary Care Pro vider Vanda Guerrero MD Primary Care Provider [phone] Vanda Guerrero MD Unavailable [phone] Jeana-JdNoreen castro APRN, CNP Unavailable Jeana-JdNoreen castro APRN, CNP Unavailable Jeana-JdNoreen castro APRN CARDIOVASCULAR RN Primary Car e Provider Kalyan Galvan Unavailable Unavailable Lashae Trevino [facility] Unavailable [phone] Eduardo Sharma MD Unavailable Rios Monteiro MD Unavailable [phone] Marcelo Artis PA-C Unavailable [phone] Rodrigo Man PA-C Unavailable [phone] Jeana-JdNoreen castro APRN CARDIOVASCULAR RN Unavailable Sudha Greene NP Primary Care Provider Agatha NullM, Podiatry /Foot and Ankle Surgery Unavailable [facility] Unavailable Encounter Details Date Type [...] documented as of this encounter Care Teams Salad Maker Relationship Specialty Start Date End Date Selma Good APRN CARDIOVASCULAR RN [address] [place] [address] [place] [address] PCP - General 04/09/08 04/07/15 Vanda Guerrero MD [address] [place] [address] [place] [address] PCP - General Internal Medicine 04/08/15 01/08/19 Vanda Guerrero MD [address] [place] [address] [place] [address] PCP - Assigned PCP 07/24/16 06/15/18 Noreen Flores APRN CARDIOVASCULAR RN [address] [place] [address] [place] [address] PCP - Assigned PCP 06/16/18 08/13/18 Noreen Flores APRN CARDIOVASCULAR RN [address] [place] [address] [place] [address] PCP - General Nurse Practitioner 01/09/19 12/12/21 Sudha Greene NP [address] [address] PCP - General 11/01/22 Noreen Flores APRN CARDIOVASCULAR RN [address] [facility] [place] [address] Assigned PCP 06/16/18 05/26/22 Kalyan Galvan Personal Advocate & Liaison (PAL) 08/08/19 04/26/21 Lashae Trevino, [facility] [address] [facility] [place] [address] Pharmacist Pharmacist 10/14/19 12/01/20 Eduardo Sharma MD [address] [place] [address]475 Assigned Sleep Provider 04/02/2005/07 [place] [address] [facility] [address] [place] [address] Assigned Musculoskeletal Provider 04/02/20 08/24/20 Marcelo Artis PA-C [address] [place] [address] Assigned Musculoskeletal Provider 08/25/20 08/20/21 Rodrigo Man PA-C [address] [place] [address] Assigned Surgical Provider 08/25/20 11/27/20 Noreen Flores APRN CARDIOVASCULAR RN [address] [facility] [place] [address] Assigned PCP 08/05/22 03/16/23 Agatha Null DPM, Podiatry/Foot and Ankle Surgery [address] [place] [address] Assigned Musculoskeletal Provider 11/04/22 Clinic - [place] [facility] [address] [facility] [place] [id number] Assigned PCP 07/05/23 documented as of this encounter
--- OUTSIDE RECORDS SUMMARY | 2023-10-19 16:36 | XMS_ITS | Encounter Summary ---
Author Name Unknown Organization [facility] Address [address] [place] [address] Care Team Providers Care Stave Grader Name Role Phone Selma Good APRN PIPE WELDER Primary Care Pro vider Vanda Guerrero MD Primary Care Provider [phone] Vanda Guerrero MD Unavailable [phone] Jeana-JdNoreen castro APRN, CNP Unavailable Jeana-JdNoreen castro APRN, CNP Unavailable Jeana-JdNoreen castro APRN PIPE WELDER Primary Car e Provider Kalyan Galvan Unavailable Unavailable Lashae Trevino [facility] Unavailable [phone] Eduardo Sharma MD Unavailable Rios Monteiro MD Unavailable [phone] Marcelo Artis-Aleyda Unavailable [phone] Rodrigo Man-C Unavailable [phone] Jeana-JdNoreen castro APRN PIPE WELDER Unavailable Sudha Greene NP Primary Care Provider [phone] Agatha NullM, Podiatry /Foot and Ankle Surgery Unavailable [facility] Unavailable Reason for Referral * Referral not Required - Closed Specialty Diagnoses / Procedures Referred By Rylie garcia Referred To Contact Diagnoses Upper back pain Selma Good APRN PIPE WELDER [address] [facility] [place] [address] [facility] [address]ast[address] [place] [address] Phone: [phone] Referral ID Status Reason Start Date Expiration Date Visits Re quested Visits Authorized [id number] Closed 01/18/2010 01/18/2010 1 1 Comments Coverage of these services is subject to the terms and limitations of your health insurance plan. Please call member services at your health plan with any benefit or coverage questions. [facility] referral to [facility] (Katelyn Colorado M.D.) [phone]. Any CT, MRI or procedures ordered by your specialist must be performed at a [facility] facility OR coordinated by your clinic's referral office at [phone]. If X-rays, CTs or MRIs have been performed, please contact the facility where they were done, to arrange for corn picker prior to your scheduled appointment. Please bring this referral request to your appointment and present it to your specialist. Reason for Visit * Reason Onset Date Comments Referral 01/17/2010 Encounter Details Date Type Department Care Team (Late st Contact Info) Description 01/17/2010 [facility] Medical Advice [place] [id number] [facility] [place] [phone] Selma Good, SEAN PIPE WELDER [address] [facility] [place] [address] Referral Social History Tobacco Use Types Packs/Day [...] CONSULT PLASTIC SURGERY (01/31/2010) Selma Good APRN PIPE WELDER REFERRAL documented in this encounter Visit Diagnoses Diagnosis Upper back pain- Primary Pain in thoracic spine documented in this encounter Additional Health Concerns Infection Onset Date Last Indicated Resolved Time Rule Out COVID-19 08/25/2020 08/25/2020 08/26/2020 3:23 PM CDT Rule Out COVID-19 11/26/2022 11/26/2022 11/27/2022 3:38 PM CDT documented as of this encounter Care Teams Stave Grader Relationship Specialty Start Date End Date Selma Good APRN PIPE WELDER [address] [place] [address] [place] [address] PCP - General 04/09/08 04/07/15 Vanda Guerrero MD [address] [place] [address] [place] [address] PCP - General Internal Medicine 04/08/15 01/08/19 Vanda Guerrero MD [address] [place] [address] [place] [address] PCP - Assigned PCP 07/24/16 06/15/18 Noreen Flores APRN PIPE WELDER [address] [place] [address] [place] [address] PCP - Assigned PCP 06/16/18 08/13/18 Noreen Flores APRN PIPE WELDER [address] [place] [address] [place] [address] PCP - General Nurse Practitioner 01/09/19 12/12/21 Sudha Greene NP [address] [address] PCP - General 11/01/22 Noreen Flores APRN PIPE WELDER [address] [facility] [place] [address] Assigned PCP 06/16/18 05/26/22 Kalyan Galvan Personal Advocate & Liaison (PAL) 08/08/19 04/26/21 Lashae Trevino, [facility] [address] [facility] [address] [place] [phone] Pharmacist Pharmacist 10/14/19 12/01/20 Eduardo Sharma MD [address] [place] [address] Assigned Sleep Provider 04/02/2005/07 [place] [address] [facility] [address] [place] [address] Assigned Musculoskeletal Provider 04/02/20 08/24/20 Marcelo Artis PA-C [address] [place] [address] Assigned Musculoskeletal Provider 08/25/20 08/20/21 Rodrigo Man PA-C [address] [place] [address] Assigned Surgical Provider 08/25/20 11/27/20 Noreen Flores APRN PIPE WELDER [address] [facility] [place] [address] Assigned PCP 08/05/22 03/16/23 Agatha Null DPM, Podiatry/Foot and Ankle Surgery [address] [place] [address] Assigned Musculoskeletal Provider 11/04/22 Clinic - [place] [place] [facility] [address] [facility] [address] [place] [address] Assigned PCP 07/05/23 documented as of this encounter
--- OUTSIDE RECORDS SUMMARY | 2023-10-19 16:36 | XMS_ITS | Encounter Summary ---
Author Name Unknown Organization [facility] Address [address] [place] [address] Care Team Providers Care Electronics Scale Tester Name Role Phone Selma Good APRN AUTOMATIC DOOR MECHANIC Primary Care Pro vider Vanda Guerrero MD Primary Care Provider [phone] Vanda Guerrero MD Unavailable [phone] Jeana-JdNoreen castro APRN, CNP Unavailable Jeana-JdNoreen castro APRN, CNP Unavailable Jeana-JdNoreen castro APRN AUTOMATIC DOOR MECHANIC Primary Car e Provider Kalyan Galvan Unavailable Unavailable Lashae Trevino [facility] Unavailable [phone] Eduardo Sharma MD Unavailable Rios Monteiro MD Unavailable [phone] Marcelo Artis-Aleyda Unavailable [phone] Rodrigo Man-C Unavailable [phone] Jeana-JdNoreen castro APRN AUTOMATIC DOOR MECHANIC Unavailable Sudha Greene NP Primary Care Provider Agatha NullM, Podiatry /Foot and Ankle Surgery Unavailable [facility] Unavailable Reason for Visit * Reason Onset Date Comments Patient Request 01/26/2010 Encounter Details Date Type Department Care Team (Late st Contact Info) Description 01/26/2010 [facility] [address] [place] [address] [place] [id number] Selma Good APRN AUTOMATIC DOOR MECHANIC [address] [facility] DAV[place] [address] Patient Request Social History Tobacco Use Types [...] as of this encounter Care Teams Electronics Scale Tester Relationship Specialty Start Date End Date Selma Good, SEAN AUTOMATIC DOOR MECHANIC [address] [place] [address] [place] [address] PCP - General 04/09/08 04/07/15 Vanda Guerrero MD [address] [place] [address] [place] [address] PCP - General Internal Medicine 04/08/15 01/08/19 Vanda Guerrero MD [address] [place] [address] [place] [address] PCP - Assigned PCP 07/24/16 06/15/18 Noreen Flores APRN AUTOMATIC DOOR MECHANIC [address] [place] [address] [place] [address] PCP - Assigned PCP 06/16/18 08/13/18 Noreen Flores APRN AUTOMATIC DOOR MECHANIC [address] [place] [address] [place] [address] PCP - General Nurse Practitioner 01/09/19 12/12/21 Sudha Greene NP [address] [address] PCP - General 11/01/22 Noreen Flores APRN AUTOMATIC DOOR MECHANIC [address] [place] [address] [place] [address] Assigned PCP 06/16/18 05/26/22 Kalyan Galvan Personal Advocate & Liaison (PAL) 08/08/19 04/26/21 Lashae Trevino, [facility] [address] [facility] [place] [address] Pharmacist Pharmacist 10/14/19 12/01/20 Eduardo Sharma MD [address] [facility] [address] [place] [address] Assigned Sleep Provider 04/02/2005/07 [place] [address] [facility] [address] [place] [address] Assigned Musculoskeletal Provider 04/02/20 08/24/20 Marcelo Artis, PA-C [address] [facility] [address] [place] [address] Assigned Musculoskeletal Provider 08/25/20 08/20/21 Rodrigo Man PA-C [address] [facility] [address] [place] [address] Assigned Surgical Provider 08/25/20 11/27/20 Noreen Flores APRN AUTOMATIC DOOR MECHANIC [address] [facility] DAVID GR[place] [phone] Assigned PCP 08/05/22 03/16/23 Agatha Null DPM, Podiatry/Foot and Ankle Surgery [address] [facility] [address] [place] [address] Assigned Musculoskeletal Provider 11/04/22 [facility] Nita Pringle [facility] [address] [facility] DAV[place] [phone] Assigned PCP 07/05/23 documented as of this encounter
== END 2023-10-19 17:18 | disposition home or self-care (01) ==
PROVIDERS: Emergency Provider Family Medicine; PCP Nurse Practitioner Family
DX: M54.16 Radiculopathy, lumbar region (principal)
CPT/HCPCS: 96372; 99283; 99284; J1885

== ENCOUNTER 2023-10-26 11:36 | Outpatient (CLI) | payer BC, SELFPAY ==
--- OUTSIDE RECORDS SUMMARY | 2023-10-26 11:40 | XMS_ITS | Clinical Summary ---
Author Name Unknown Organization [facility] Address [address] [place] [address] Care Team Providers Care Client Experience Consultant Name Role Phone Unavailable Primary Care Provider Unavailabl e Source Comments Patient records contain information from all sites at [facility]. For routine questions regarding patient records, call [phone] during business hours, M-F 8:00 AM - 5:00 PM Central Time. Record requests for emergency care only can be directed to [phone] at any time.[facility] Allergies Active Allergy Reactions Criticality [...] TO DIRECT LDL Routine 08/08/2019 10:17 AM PRODUCTION SUPPORT SPECIALIST BI BREAST DIAGNOSTIC BILATERAL WITH TOMOSYNTHESIS Routine 09/30/2015 2:11 PM CDT from Last 3 Months or Most Recently Relevant to Health Maintenance
--- OUTSIDE RECORDS SUMMARY | 2023-10-26 11:40 | XMS_ITS | Clinical Summary ---
Author Name Unknown Organization [facility] Address [place], [place] [address] Care Team Providers Care Director Multimedia Name Role Phone Sudha Greene NP Primary Care Provider [phone] Allergies Active Allergy Reactions Criticality Noted Date [...] CDT Oxygen Saturation 97% 08/12/2020 6:13 PM PRINCIPAL SCIENTIST Inhaled Oxygen Concentration - - Weight 79.4 [...] AM CDT 11/02/2021 5:19 PM CDT Narrative [facility] - 11/04/2021 10:35 AM CDT HPV types 16, 18, 31, 33, 35, 39, 45, 51, 52, 56, 58, 59, 66 and 68 DNA were undetectable or below the pre-set threshold. Methodology: Alaina Basilio 4800 HPV Test Doctor Unknown MICROBIOLOGY [facility] [address] [place] [address], from Last 3 Months or Most Recently Relevant to Health Maintenance Care Teams Director Multimedia Relationship Specialty Start Date End Date Sudha Greene NP [address] [place] [address] DustinDAVID [phone] (work) PCP - General Emergency Medicine 03/27/22
--- OUTSIDE RECORDS SUMMARY | 2023-10-26 11:40 | XMS_ITS ---
Author Name Unknown Organization [facility] Address [address] [place] [address] Care Team Providers Care Reading Coach Name Role Phone Unavailable Unavailable Unavailable Surgery Details Not on file Complications Check Surgery Details section. Procedure Estimated Blood Loss Check Surgery Details section. Procedure Findings Check Surgery Details section. Procedure Specimens Taken Check Surgery Details section.
--- OUTSIDE RECORDS SUMMARY | 2023-10-26 11:40 | XMS_ITS | Referral Summary ---
Author Name Unknown Organization [facility] Address [address] [place] [address] Care Team Providers Care Mechanical Laboratory Technician Name Role Phone Unavailable Primary Care Provider Unavailabl e Source Comments Patient records contain information from all sites at [facility]. For routine questions regarding patient records, call [phone] during business hours, M-F 8:00 AM - 5:00 PM Central Time. Record requests for emergency care only can be directed to [phone] at any time.[facility] Allergies Active Allergy Reactions Criticality Noted [...] TO DIRECT LDL Routine 08/08/2019 10:17 AM SUPERVISOR BEET END BI BREAST DIAGNOSTIC BILATERAL WITH TOMOSYNTHESIS Routine 09/30/2015 2:11 PM CDT from Last 3 Months or Most Recently Relevant to Health Maintenance [facility] [place] [phone]
--- OUTSIDE RECORDS SUMMARY | 2023-10-26 11:40 | XMS_ITS | Clinical Summary ---
Author Name Unknown Organization [facility] Address [address] [place] [address] Care Team Providers Care Insole Bottom Filler Name Role Phone Sudha Greene NP Primary Care Provider Agatha Null DPM, Podiatry /Foot and Ankle Surgery Unavailable [facility] Unavailable Allergies Active Allergy Reactions Criticality [...] sprayIndications:Al lergic rhinitis, unspecified seasonality, unspecified trigger [place] 1-2 sprays into both nostrils daily 16 [...] use. Address next visit Family history of MD (myocardial infarction) 08/2007 Overview: At early age, father MD at age 40 Resolved Problems Problem Noted [...] 4 Kidney Disease Brother 5 Cardiovascular Father MD early 40s, almodovar bsequent bipass Diabetes Father Hypertension Father Lipids Father Diabetes Maternal Grandfather Hypertension Maternal Grandfather Lipids Maternal Grandfather Diabetes Maternal Grandmother Hypertension Maternal Grandmother Lipids Maternal Grandmother Arthritis Mother OA Cardiovascular Mother MD age 72 Diabetes Mother Type II Hypertension [...] Answer Date Recorded PHQ-2 Score 0 11/10/2020 [facility] - [...] Comments Blood Pressure 128/80 05/11/2023 1:07 PM SHOEMAKER APPRENTICE Pulse 87 02/26/2023 3:58 PM CDT Temperature 36.2 ??C (97.2 ??F) 02/26/2023 3:58 PM CD T Respiratory Rate 12 02/26/2023 3:13 PM CDT Oxygen Saturation 95% 02/26/2023 4:00 PM CDT Inhaled Oxygen Concentration - - Weight 87.1 kg (192 lb) 05/11/2023 1:07 PM SHOEMAKER APPRENTICE Height 156 cm (5' 1.42) 02/26/2023 11:19 [...] - HIM SCAN 05/17/2020 1 2:00 AM SHOEMAKER APPRENTICE HEMOGLOBIN A1C Routine 01/13/2020 8:55 AM CDT Type 2 diabetes mellitus with complication, without long-term current use of insulin (H) FECAL COLORECTAL CANCER SCREEN FIT Routine 01/12/2020 8:00 AM CDT Health care maintenance ALBUMIN RANDOM URINE QUANTITATIVE Routine 08/08/2019 10:17 AM SHOEMAKER APPRENTICE Routine general medical examination at a health care facility LIPID REFLEX TO DIRECT LDL PANEL Routine 08/08/2019 10:17 AM SHOEMAKER APPRENTICE Routine general medical examination at a [facility] care facility MA SCREENING DIGITAL BILATERAL Routine 09/03/2018 10:13 AM CDT Health care maintenance HIV ANTIGEN ANTIBODY COMBO Routine 04/09/2018 10:09 AM CDT Encounter for screening for HIV HEPATITIS C SCREEN REFLEX TO HCV RNA QUANT AND GENOTYPE Routine 09/25/2016 2:30 PM CDT Need for hepatitis C screening test HPV HIGH RISK TYPES DNA CERVICAL Routine 05/03/2016 12:17 PM SHOEMAKER APPRENTICE Cervical cancer screening PAP IMAGED THIN LAYER SCREEN Routine 05/03/2016 12:00 AM SHOEMAKER APPRENTICE Cervical cancer screening C FOOT EXAM Routine 10/06/2014 9:47 AM CDT Type 2 diabetes, HbA1C goal < 7% (H) from Last 3 Months or Most Recently Relevant to Health Maintenance Results * (ABNORMAL) Comprehensive metabolic panel (11/10/2020 2:29 PM CDT) Sodium 142 133 - 144 mmol/L 11/10/2020 7:[address] [facility] Potassium 4.0 3.4 - 5.3 mmol/L 11/10/2020 7:[address] [facility] Chloride 112(H) 94 - 109 mmol/L 11/10/2020 7:[address] [facility] Carbon Dioxide 27 20 - 32 mmol/L 11/10/2020 7:[address] [facility] Anion Gap 4 3 - 14 mmol/L 11/10/2020 7:[address] [facility] Glucose 96 70 - 99 mg/dL 11/10/2020 7:[address] [facility] Urea Nitrogen 14 7 - 30 mg/dL 11/10/2020 7:[address] [facility] Creatinine 0.74 0.52 - 1.04 mg/dL 11/10/2020 7:58 PM [facility] GFR Estimate >90 >60 mL/min/{1 .73_m2} 11/10/2020 7:58 PM [facility] Comment: Non GFR Calc Starting 05/28/2018, serum creatinine based estimated GFR (eGFR) will be calculated using the Chronic Kidney Disease Epidemiology Collaboration (CKD-EPI) equation. GFR Estimate If Black >90 >60 mL/min/{1 .73_m2} 11/10/2020 7:58 PM [facility] Comment: GFR Calc Starting 05/28/2018, serum creatinine based estimated GFR (eGFR) will be calculated using the Chronic Kidney Disease Epidemiology Collaboration (CKD-EPI) equation. Calcium 9.3 8.5 - 10.1 mg/dL 11/10/2020 7:[address] [facility] Bilirubin Total 0.6 0.2 - 1.3 mg/dL 11/10/2020 8:[address] [facility] Albumin 3.6 3.4 - 5.0 g/dL 11/10/2020 8:[address] [facility] Protein Total 7.2 6.8 - 8.8 g/dL 11/10/2020 8:[address] [facility] Alkaline Phosphatase 143 40 - 150 U/L 11/10/2020 8:[address] [facility] ALT 23 0 - 50 U/L 11/10/2020 8:[address] [facility] AST 16 0 - 45 U/L 11/10/2020 8:[address] [facility] Blood 11/10/2020 2:29 PM CDT 11/10/2020 3:04 PM CDT Kavin Fitzgerald PA-C LAB - BLO OD ORDERABLES [facility] [address] [place] [address] * EYE EXAM - HIM SCAN (05/17/2020 12:00 AM SHOEMAKER APPRENTICE) Pathologist [facility] RETINOPATHY NEGATIVE 05/17/2020 Narrative Lauren Posada - 05/17/2020 12:00 AM SHOEMAKER APPRENTICE DIABETIC EYE EXAM [facility] Provider Outside OTHER * (ABNORMAL) A1C FUTURE 1yr (01/13/2020 8:55 AM CDT) [facility] Hemoglobin A1C 6.1(H) 0 - 5.6 % 01/13/2020 9:27 AM CDT [facility] Comment: Normal <5.7% Prediabetes 5.7-6.4% ??Diabetes 6.5% or higher - adopted from ADA consensus guidelines. Blood specimen (specimen) 01/13/2020 8:55 AM CDT 01/13/2020 8:56 AM CDT Noreen Flores APRN WOOL CARDER LAB - BLOOD ORDERABLES [facility] [address] [place] [address] * Fecal colorectal cancer screen (FIT) (01/12/2020 8:00 AM CDT) [facility] Occult Blood Scn FIT Negative NEG^Negati ve 01/18/2020 4:[address] [facility] Stool specimen (specimen) 01/12/2020 8:00 AM CDT 01/18/2020 1:16 PM CDT Noreen Flores APRN, CNP LAB - STOOLS ORDERABLES [facility] [address] [place] [address] * Albumin Random Urine Quantitative with Creat Ratio (08/08/2019 10:17 AM SHOEMAKER APPRENTICE) Creatinine Urine 154 mg/dL 08/09/2019 1:[address] [facility] Albumin Urine mg/L 11 mg/L 08/09/2019 1:[address] [facility] Albumin Urine mg/g Cr 7.14 0 - 25 mg/g Cr 08/09/2019 1:[address] [facility] Urine specimen (specimen) 08/08/2019 10:17 AM SHOEMAKER APPRENTICE 08/08/2019 10:18 AM SHOEMAKER APPRENTICE Noreen Flores APRN, CNP LAB - URINE ORDERABLES [facility] [address] [place] [address] * (ABNORMAL) Lipid panel reflex to direct LDL Fasting (08/08/2019 10:17 AM SHOEMAKER APPRENTICE) Cholesterol 180 <200 mg/dL 08/08/2019 7:47 PM [facility] Triglycerides 153(H) <150 mg/dL 08/08/2019 7:47 PM [facility] Comment: Borderline high: ??150-199 mg/dl High: ? 200-499 mg/dl Very high: ? >499 mg/dl HDL Cholesterol 46(L) >49 mg/dL 0 7:[address] [facility] LDL Cholesterol Calculated 103(H) <100 mg/dL 08/08/2019 7:47 PM [facility] Comment: Above desirable: ??100-129 mg/dl Borderline High: ??130-159 mg/dL High: ? 160-189 mg/dL Very high: ? >189 mg/dl Non HDL Cholesterol 134(H) <130 mg/dL 08/08/2019 7:47 PM [facility] Comment: Above Desirable: ??130-159 mg/dl Borderline high: ??160-189 mg/dl High: ? 190-219 mg/dl Very high: ? >219 mg/dl Blood specimen (specimen) 08/08/2019 10:17 AM SHOEMAKER APPRENTICE 08/08/2019 10:18 AM SHOEMAKER APPRENTICE Noreen Flores APRN WOOL CARDER LAB - BLOOD ORDERABLES Performing Organization Address City/State/[facility] Co de Phone Number [facility] [address] [place] [address], [facility] [phone] * *MA Screening Digital Bilateral (09/03/2018 10:13 AM CDT) Anatomical Region Laterality Modality Breast Bilateral Mammography Impressions 09/03/2018 10:30 AM CDT IMPRESSION: BI-RADS CATEGORY: 1 - ??Negative. RECOMMENDED FOLLOW-UP: Annual Mammography. PANCHITO DESIR MD Narrative 09/03/2018 10:30 AM CDT SCREENING MAMMOGRAM, BILATERAL, DIGITAL w/CAD, 09/03/2018 10:29 AM BREAST DENSITY: Scattered fibroglandular densities. CLINICAL INFORMATION: Breast screening. ??[facility], 09/30/15, 04/16/15, 05/27/13 FINDINGS: Negative. Stable exam. Screening exam in one year recommended. Procedure Note Panchito Desir MD - 09/03/2018 SCREENING MAMMOGRAM, BILATERAL, DIGITAL w/CAD, 09/03/2018 10:29 AM BREAST DENSITY: Scattered fibroglandular densities. CLINICAL INFORMATION: Breast screening. [facility], 09/30/15, 04/16/15, 05/27/13 FINDINGS: Negative. Stable exam. Screening exam in one year recommended. IMPRESSION: BI-RADS CATEGORY: 1 - Negative. RECOMMENDED FOLLOW-UP: Annual Mammography. PANCHITO DESIR MD Noreen Flores APRN, CNP IMG MAMMOGRAPHY ORDERABLES * HIV Antigen Antibody Combo (04/09/2018 10:09 AM CDT) HIV Antigen Antibody Combo Nonreactive NR^Nonrea ctive 04/10/2018 7:29 AM CDT [facility] Comment:HIV-1 p24 Ag & HIV-1 /HIV-2 Ab Not Detected Blood specimen (specimen) 04/09/2018 10:09 AM CDT 04/09/2018 10:15 AM CDT Noreen Flores APRN, CNP LAB - BLOOD ORDERABLES [facility] [address] * Hepatitis C Screen Reflex to HCV RNA Quant and Genotype (09/25/2016 2:30 PM CDT) Pathologist [facility] Hepatitis C Antibody Nonreactive Assay performance characteristics have not been established for newborns, infants, and children NR [facility] Blood specimen (specimen) 09/25/2016 2:30 PM CDT 09/26/2016 11:29 AM CDT Vanda Borja MD LAB - BLOOD ORDER [facility]DEFONSO [facility] [address] [place] [address] * HPV High Risk Types DNA Cervical (05/03/2016 12:17 PM SHOEMAKER APPRENTICE) HPV 16 DNA Negative NEG [facility] HPV 18 DNA Negative NEG [facility] Other HR HPV Negative NEG [facility] Final Diagnosis This patient's sample is [...] and its performance characteristics determined by the [facility], Molecular Diagnostics Laboratory. It has not been cleared or approved by the FDA. The laboratory is regulated under CLIA as qualified to perform high-complexity testing. This test is used for clinical purposes. It should not be regarded as investigational or for research. [facility] Specimen Description Cervical Cells C16 [id number] [facility] Cervical Cells 05/03/2016 12 :17 PM SHOEMAKER APPRENTICE 05/03/2016 12:20 PM SHOEMAKER APPRENTICE Vanda Borja MD LAB - BLOOD ORDER [facility]DEFONSO [facility] [address] [place] [address] * Pap imaged thin layer screen with HPV - recommended age 30 - 65 years (select HPV order below) (05/03/2016 12:00 AM SHOEMAKER APPRENTICE) PAP RAMSEY Wren Report Patient Name: MEGAN WONG MR#: [id number] Specimen #: [id number] Collected: 05/03/2016 Received: 05/05/2016 Reported: 05/09/2016 08:26 [...] TARIQ Wick (ASCP) Processed and screened at [facility], [facility] CLINICAL HISTORY: LMP: 10/30/11 Post Menopausal, Previous normal pap Date of Last Pap: 10/06/14, Papanicolaou Test Limitations: ??Cervical cytology is a screening test with limited sensitivity; regular screening is critical for cancer prevention; Pap tests are primarily effective for the diagnosis/preventi on of squamous cell carcinoma, not adenocarcinomas or other cancers. TESTING LAB LOCATION: [address] ??[address] COLLECTION SITE: Client: ??[facility] Location: [facility] (R) COPATH Cytologic material (specimen) 05/03/2016 05/05/2016 10:22 AM SHOEMAKER APPRENTICE Vanda Borja MD LAB - OPTIME CLIN ICAL SPECIMEN COPATH from Last 3 Months or Most Recently Relevant to Health Maintenance Care Teams Insole Bottom Filler Relationship Specialty Start Date End Date Sudha Greene NP [facility] [address] [place] [address] PCP - General 11/01/22 Agatha Null, MARÍA, Podiatry/Foot and Ankle Surgery [address] [place] [address] Assigned Musculoskeletal Provider 11/04/22 Clinic - [facility] Pringle [address] [address] Assigned PCP 07/05/23
--- OUTSIDE RECORDS SUMMARY | 2023-10-26 11:41 | XMS_ITS | Encounter Summary ---
Author Name Unknown Organization [facility] Address [address] [place] [address] Care Team Providers Care Activities Officer Name Role Phone Noreen Flores APRN BOUNTY HUNTER Unavailable Noreen Flores APRN BOUNTY HUNTER Primary Car e Provider Kalyan Galvan Unavailable Unavailable Lashae Trevino [facility] Unavailable Eduardo Sharma MD Unavailable Rios Monteiro MD Unavailable [phone] Marcelo Artis PA-C Unavailable Rodrigo Man PA-C Unavailable [phone] Noreen Flores APRN, CNP Unavailable Sudha Greene NP Primary Care Provider Agatha Null DPM, Podiatry /Foot and Ankle Surgery Unavailable Clinic - [facility] Unavailable Encounter Details Date Type Department Care Team (Late st Contact Info) Description 08/02/2020 Myra Moya [facility] [address] [facility] [address] [place] [address] Lainey Wells Social History Tobacco [...] Date Recorded PHQ-2 Score 2 07/25/2018 [facility] - Occupational [...] COVID-19? No / Unsure 07/17/2020 1:32 PM SUPERVISOR SOUND TECHNICIAN documented as of this encounter Plan [...] documented as of this encounter Care Teams Activities Officer Relationship Specialty Start Date End Date Noreen Flores APRN BOUNTY HUNTER [address] [place] [address] [place] [address] PCP - General Nurse Practitioner 01/09/19 12/12/21 Sudha Greene NP [address] [address] PCP - General 11/01/22 Noreen Flores APRN BOUNTY HUNTER [address] [place] [address] [place] [address] Assigned PCP 06/16/18 05/26/22 Kalyan Galvan Personal Advocate & Liaison (PAL) 08/08/19 04/26/21 [facility] [address] [facility] [place] [address] Pharmacist Pharmacist 10/14/19 12/01/20 Eduardo Sharma MD [address] [facility] [address] [place] [address] Assigned Sleep Provider 04/02/2005/07 [place] [address] [facility] [address] [place] [address] Assigned Musculoskeletal Provider 04/02/20 08/24/20 Marcelo Artis PA-C [address] [facility] [address] [place] [address] Assigned Musculoskeletal Provider 08/25/20 08/20/21 Rodrigo Man PA-C [address] [facility] [address] [place] [address] Assigned Surgical Provider 08/25/20 11/27/20 Noreen Flores APRN CNP [address] [place] [address] [place] [address] Assigned PCP 08/05/22 03/16/23 Agatha Null DPM, Podiatry/Foot and Ankle Surgery [address] [facility] [address] [place] [address] Assigned Musculoskeletal Provider 11/04/22 [facility] [address] [facility] [place] [address] Assigned PCP 07/05/23 documented as of this encounter
--- OUTSIDE RECORDS SUMMARY | 2023-10-26 11:41 | XMS_ITS | Encounter Summary ---
Author Name Unknown Organization [place] Address [address] [place] [address] Care Team Providers Care Electronic Operator Name Role Phone Noreen Flores APRN ARBORIST CLIMBER Unavailable Noreen Flores APRN ARBORIST CLIMBER Primary Car e Provider Kalyan Galvan Unavailable Unavailable Lashae Trevino [facility] Unavailable [phone] Eduardo Sharma MD Unavailable Marcelo Artis PA-C Unavailable Rodrigo Man PA-C Unavailable [phone] Noreen Flores APRN ARBORIST CLIMBER Unavailable Sudha Greene NP Primary Care Provider [phone] Agatha Null DPM, Podiatry /Foot and Ankle Surgery Unavailable Clinic - [facility] Unavailable Reason for Visit * Reason Onset Date Comments Refill Request 10/05/2020 topiramate (TOPA MAX) 100 MG tablet Encounter Details Date Type Department Care Team (Late st Contact Info) Description 10/05/2020 Refclaudia M [facility] [place] [address] [place] [address] Noreen Flores APRN ARBORIST CLIMBER [address] [facility] [place] [address] Refill Request (topiramate [...] Answer Date Recorded PHQ-2 Score 2 07/25/2018 [facility] [place] of Occupat ional Health - Occupational Stress [...] as of this encounter Care Teams Electronic Operator Relationship Specialty Start Date End Date Noreen Flores APRN ARBORIST CLIMBER [address] [place] [address] [place] [address] PCP - General Nurse Practitioner 01/09/19 12/12/21 Sudha Greene NP [address] [address] PCP - General 11/01/22 Noreen Flores APRN ARBORIST CLIMBER [address] [place] [address] [place] [address] Assigned PCP 06/16/18 05/26/22 Kalyan Galvan Personal Advocate & Liaison (PAL) 08/08/19 04/26/21 Lashae Trevino, [facility] [address] [facility] [place] [address] Pharmacist Pharmacist 10/14/19 12/01/20 Eduardo Sharma MD [address] [place] [address] [place] [id number] Assigned Sleep Provider 04/02/2005/07 Marcelo Artis PA-C [address] [facility] [address] [place] [address] Assigned Musculoskeletal Provider 08/25/20 08/20/21 Rodrigo Man PA-C [address] [place] [address] [place] [id number] Assigned Surgical Provider 08/25/20 11/27/20 Noreen Flores APRN CNP [address] [place] [address] [place] [address] Assigned PCP 08/05/22 03/16/23 Agatha Null DPM, Podiatry/Foot and Ankle Surgery [address] [facility] 300 [place] [address] Assigned Musculoskeletal Provider 11/04/22 [facility] [address] [facility] [place] [address] Assigned PCP 07/05/23 documented as of this encounter
--- OUTSIDE RECORDS SUMMARY | 2023-10-26 11:41 | XMS_ITS | Encounter Summary ---
Author Name Unknown Organization [place] Address [address] [place] [address] Care Team Providers Care Physiognomist Name Role Phone Noreen Flores APRN MILIEU TECHNICIAN Unavailable Sudha Greene NP Primary Care Provider Agatha Null DPM, Podiatry /Foot and Ankle Surgery Unavailable [facility] Unavailable Encounter Details Date Type Department Care Team (Late st Contact Info) Description 01/12/2023 [facility] Medical Advice [facility] [address] [place] [address] [place] [address] Agatha Null DPM, Podiatry/Foot and Ankle Surgery [address] [place] [place] [address] Chronic pain of right ankle [...] Answer Date Recorded PHQ-2 Score 0 11/10/2020 [facility] [place] of Occupat ional Health - Occupational Stress [...] for providerreview/ signature. Haily Gandhi MSA, ATC Popcorn Machine Operator documented in this encounter Plan of Treatment Not on file documented as of this encounter Visit Diagnoses Diagnosis Chronic pain of right ankle- Primary Peroneal tendon tear, right, subsequent encounter documented in this encounter Additional Health Concerns Assessment Noted Time PHQ-9 Depression Total Score: 7 11/11/19 21 1:31 PM CDT documented as of this encounter Care Teams Physiognomist Relationship Specialty Start Date End Date Sudha Greene NP [address] [address] PCP - General 11/01/22 Noreen Flores APRN CNP [address] [place] [address] [place] [address] Assigned PCP 08/05/22 03/16/23 Agatha Null DPM, Podiatry/Foot and Ankle Surgery [address] [place] [address] Assigned Musculoskeletal Provider 11/04/22 [facility] [place] [facility] [address] [place] [address] [place] [address] Assigned PCP 07/05/23 documented as of this encounter
--- OUTSIDE RECORDS SUMMARY | 2023-10-26 11:41 | XMS_ITS | Encounter Summary ---
Author Name Unknown Organization [place] Address [address] [place] [address] Care Team Providers Care Industrial Roofer Helper Name Role Phone Noreen Flores APRN, CNP Unavailable Noreen Flores APRN, CNP Primary Car e Provider Kalyan Galvan Unavailable Unavailable Lashae Trevino [facility] Unavailable Eduardo Sharma MD Unavailable Rios Monteiro MD Unavailable Marcelo Artis PA-C Unavailable Rodrigo Man PA-C Unavailable [phone] Noreen Flores APRN, CNP Unavailable Sudha Greene NP Primary Care Provider Agatha Null DPM, Podiatry /Foot and Ankle Surgery Unavailable Clinic - [facility] Unavailable Reason for Visit * Reason Comments Medication Refill Encounter Details Date Type Department Care Team (Late st Contact Info) Description 06/18/2020 Refill [facility] [place] [address] [facility] [address] [place] [phone] Noreen Flores APRN CNP [address] [facility] [place] [address] Medication Refill Social [...] Friends and Family Patient declined 08/08/2019 Attends Faith Services Patient declined 07/13 Active Member of [...] Answer Date Recorded PHQ-2 Score 2 07/25/2018 [facility] of Occupat ional Health - Occupational Stress [...] Desirae Champagne RN - 06/18/2020 10:53 AM SPANISH LITERATURE PROFESSOR Prescription approved per [facility] Refill Protocol. Desirae Champagne RN on 06/18/2020 at 10:52 AM ISH LITERATURE PROFESSOR documented in this encounter Plan of [...] as of this encounter Care Teams Industrial Roofer Helper Relationship Specialty Start Date End Date Noreen Flores APRN OPTICAL GLASS INSPECTOR [address] [place] [address] [place] [address] PCP - General Nurse Practitioner 01/09/19 12/12/21 Sudha Greene, MAURICIO [address] [address] PCP - General 11/01/22 Noreen Flores APRN OPTICAL GLASS INSPECTOR [address] [place] [address] [place] [address] Assigned PCP 06/16/18 05/26/22 Kalyan Galvan Personal Advocate & Liaison (PAL) 08/08/19 04/26/21 Lashae Trevino, [facility] [address] [place] [address] Pharmacist Pharmacist 10/14/19 12/01/20 Eduardo Sharma MD [address] [place] [place] [id number] Assigned Sleep Provider 04/02/2005/07 [place] [address] [facility] 300 [place], [place] [address] Assigned Musculoskeletal Provider 04/02/20 08/24/20 Marcelo Artis PA-C [id number] [place] [address] 300 [place] [address] Assigned Musculoskeletal Provider 08/25/20 08/20/21 Rodrigo Man PA-C [address] [place] [address] Assigned Surgical Provider 08/25/20 11/27/20 Noreen Flores APRN CNP [address] [place] [address] [place] [address] Assigned PCP 08/05/22 03/16/23 Agatha Null DPM, Podiatry/Foot and Ankle Surgery [address] [place] [address] [address] [place] [address] Assigned Musculoskeletal Provider 11/04/22 [facility] [place] [address] [facility] [place] [address] Assigned PCP 07/05/23 documented as of this encounter
--- OUTSIDE RECORDS SUMMARY | 2023-10-26 11:41 | XMS_ITS | Referral Summary ---
Author Name Unknown Organization [place] Address [address] [place] [address] Care Team Providers Care Floor Clerk Name Role Phone Sudha Greene NP Primary Care Provider Agatha Null DPM, Podiatry /Foot and Ankle Surgery Unavailable [facility] [place] [facility] Unavailable Allergies Active Allergy Reactions Criticality [...] sprayIndications:Al lergic rhinitis, unspecified seasonality, unspecified trigger [place] 1-2 sprays into both nostrils daily 16 [...] use. Address next visit Family history of SD (myocardial infarction) 08/2007 Overview: At early age, father SD at age 40 Resolved Problems Problem Noted [...] Answer Date Recorded PHQ-2 Score 0 11/10/2020 [facility] [place] of Occupat ional Health - Occupational Stress [...] Comments Blood Pressure 128/80 05/11/2023 1:07 PM [facility] Pulse 87 02/26/2023 3:58 PM CDT Temperature 36.2 ??C (97.2 ??F) 02/26/2023 3:58 PM CD T Respiratory Rate 12 02/26/2023 3:13 PM CDT Oxygen Saturation 95% 02/26/2023 4:00 PM CDT Inhaled Oxygen Concentration - - Weight 87.1 kg (192 lb) 05/11/2023 1:07 PM [facility] Height 156 cm (5' 1.42) 02/26/2023 11:19 AM CDT Body Mass Index 35.79 02/26/2023 11:19 AM CDT Plan of Treatment Not on file Procedures Procedure Name Priority Date/Time Associated Diagnosis Comments COMPREHENSIVE METABOLIC PANEL Routine 11/10/2020 2:29 PM CDT Polyarthralgia EYE EXAM - HIM SCAN 05/17/2020 1 2:00 AM [facility] HEMOGLOBIN A1C Routine 01/13/2020 8:55 AM CDT Type 2 diabetes mellitus with complication, without long-term current use of insulin (H) FECAL COLORECTAL CANCER SCREEN FIT Routine 01/12/2020 8:00 AM CDT Health care maintenance ALBUMIN RANDOM URINE QUANTITATIVE Routine 08/08/2019 10:17 AM [facility] Routine general medical examination at a health care facility LIPID REFLEX TO DIRECT LDL PANEL Routine 08/08/2019 10:17 AM [facility] Routine general medical examination at a health [...] TYPES DNA CERVICAL Routine 05/03/2016 12:17 PM [facility] Cervical cancer screening PAP IMAGED THIN LAYER SCREEN Routine 05/03/2016 12:00 AM [facility] Cervical cancer screening C FOOT EXAM Routine [...] - BLO OD ORDERABLES Performing Organization Address City/[facility]/ZIP Co de Phone Number [facility] [address] [place] [address] * EYE EXAM - HIM SCAN (05/17/2020 12:00 AM [facility]) RETINOPATHY NEGATIVE 05/17/2020 Narrative Lauren Posada - 05/17/2020 12:00 AM [facility] DIABETIC EYE EXAM [facility] Provider Outside OTHER * (ABNORMAL) A1C FUTURE 1yr (01/13/2020 8:55 AM CDT) Hemoglobin A1C 6.1(H) 0 - 5.6 % 01/13/2020 9:27 AM CDT [facility] Comment: Normal <5.7% Prediabetes 5.7-6.4% ??Diabetes 6.5% or higher - adopted from ADA consensus guidelines. Blood specimen (specimen) 01/13/2020 8:55 AM CDT 01/13/2020 8:56 AM CDT Noreen Flores APRN STATION BAGGAGE AGENT LAB - BLOOD ORDERABLES [facility] [address] [place] [address] * Fecal colorectal cancer screen (FIT) (01/12/2020 8:00 AM CDT) Occult Blood Scn FIT Negative NEG^Negati ve 01/18/2020 4:19 PM CDT [facility] Stool specimen (specimen) 01/12/2020 8:00 AM CDT 01/18/2020 1:16 PM CDT Noreen Flores APRN, CNP LAB - STOOLS ORDERABLES [facility] [address] [place] [address] * Albumin Random Urine Quantitative with Creat Ratio (08/08/2019 10:17 AM [facility]) Creatinine Urine 154 mg/dL 08/09/2019 1:54 PM [facility] Albumin Urine mg/L 11 mg/L 08/09/2019 1:59 PM [facility] Albumin Urine mg/g Cr 7.14 0 - 25 mg/g Cr 08/09/2019 1:59 PM [facility] Urine specimen (specimen) 08/08/2019 10:17 AM [facility] 08/08/2019 10:18 AM [facility] Noreen Flores APRN, CNP LAB - URINE ORDERABLES Performing Organization Address City/[facility]/ZIP Co de Phone Number [facility] [address] [place] [address] * (ABNORMAL) Lipid panel reflex to direct LDL Fasting (08/08/2019 10:17 AM [facility]) Cholesterol 180 <200 mg/dL 08/08/2019 7:47 PM [facility] Triglycerides 153(H) <150 mg/dL 08/08/2019 7:47 PM [facility] Comment: Borderline high: ??150-199 mg/dl High: ? 200-499 mg/dl Very high: ? >499 mg/dl HDL Cholesterol 46(L) >49 mg/dL 0 7:47 PM [facility] LDL Cholesterol Calculated 103(H) <100 mg/dL 08/08/2019 7:47 PM [facility] Comment: Above desirable: ??100-129 mg/dl Borderline High: ??130-159 mg/dL High: ? 160-189 mg/dL Very high: ? >189 mg/dl Non HDL Cholesterol 134(H) <130 mg/dL 08/08/2019 7:47 PM [facility] Comment: Above Desirable: ??130-159 mg/dl Borderline high: ??160-189 mg/dl High: ? 190-219 mg/dl Very high: ? >219 mg/dl Blood specimen (specimen) 08/08/2019 10:17 AM [facility] 08/08/2019 10:18 AM [facility] Noreen Flores APRN STATION BAGGAGE AGENT LAB - BLOOD ORDERABLES Performing Organization Address City/State/[facility] Co de Phone Number [facility] [address] [place] [address], [facility] [phone] * *MA Screening Digital Bilateral (09/03/2018 10:13 [...] - BLOOD ORDERABLES [facility] [address] * Hepatitis C Screen Reflex to [...] BLOOD ORDER ILDEFONSO [facility] [address] [place] [address] * HPV High Risk Types DNA Cervical (05/03/2016 12:17 PM [facility]) HPV 16 DNA Negative NEG [facility] HPV 18 DNA Negative NEG [facility] Other HR HPV Negative NEG [facility] Final Diagnosis This patient's sample [...] and its performance characteristics determined by the [facility], Molecular Diagnostics Laboratory. It has not been cleared or approved by the FDA. The laboratory is regulated under CLIA as qualified to perform high-complexity testing. This test is used for clinical purposes. It should not be regarded as investigational or for research. [facility] Specimen Description Cervical Cells C16 [address] [facility] Cervical Cells 05/03/2016 12 :17 PM [facility] 05/03/2016 12:20 PM [facility] Vanda Borja MD LAB - BLOOD ORDER [facility]DEFONSO [facility] [address] [place] [address] * Pap imaged thin layer screen with HPV - recommended age 30 - 65 years (select HPV order below) (05/03/2016 12:00 AM [facility]) PAP RAMSEY Wren Report Patient Name: MEGAN CHOI MR#: [id number] Specimen #: [id number] Collected: 05/03/2016 Received: 05/05/2016 Reported: 05/09/2016 08:26 [...] TARIQ Wick (ASCP) Processed and screened at [facility], [facility] CLINICAL HISTORY: LMP: 10/30/11 Post Menopausal, Previous normal pap Date of Last Pap: 10/06/14, Papanicolaou Test Limitations: ??Cervical cytology is a screening test with limited sensitivity; regular screening is critical for cancer prevention; Pap tests are primarily effective for the diagnosis/preventi on of squamous cell carcinoma, not adenocarcinomas or other cancers. TESTING LAB LOCATION: [address] ??[id number] COLLECTION SITE: Client: ??[facility] Location: EAFP (R) COPATH Cytologic material (specimen) 05/03/2016 05/05/2016 10:22 AM [facility] Vanda Borja MD LAB - OPTIME CLIN ICAL SPECIMEN COPATH from Last 3 Months or Most Recently Relevant to Health Maintenance Care Teams Floor Clerk Relationship Specialty Start Date End Date Sudha Greene NP [facility] - [address] [address] PCP - General 11/01/22 Agatha Null, MARÍA, Podiatry/Foot and Ankle Surgery [address] [place] [address] Assigned Musculoskeletal Provider 11/04/22 [facility] [place] [address] [id number] Assigned PCP 07/05/23
--- OUTSIDE RECORDS SUMMARY | 2023-10-26 11:41 | XMS_ITS | Encounter Summary ---
Author Name Unknown Organization [place] Address [address] [place] [address] Care Team Providers Care Casting Machine Operator Name Role Phone Noreen Flores APRN PATTERN SHOP SUPERVISOR Unavailable Noreen Flores APRN PATTERN SHOP SUPERVISOR Primary Car e Provider Kalyan Galvan Unavailable Unavailable Lashae Trevino [facility] Unavailable Eduardo Sharma MD Unavailable Marcelo Artis PA-C Unavailable [phone] Rodrigo Man PA-C Unavailable Noreen Flores APRN PATTERN SHOP SUPERVISOR Unavailable Sudha Greene NP Primary Care Provider [phone] Agatha NullM, Podiatry /Foot and Ankle Surgery Unavailable [facility] - [facility] [place] Unavailable Encounter Details Date Type [...] Answer Date Recorded PHQ-2 Score 2 07/25/2018 [facility] of Occupat ional Health - [...] as of this encounter Care Teams Casting Machine Operator Relationship Specialty Start Date End Date Noreen Flores APRN PATTERN SHOP SUPERVISOR [address] [facility] [place] [address] PCP - General Nurse Practitioner 01/09/19 12/12/21 Sudha Greene NP [address] [address] PCP - General 11/01/22 Noreen Flores APRN PATTERN SHOP SUPERVISOR [address] [place] [address] [place] [address] Assigned PCP 06/16/18 05/26/22 Kalyan Galvan Personal Advocate & Liaison (PAL) 08/08/19 04/26/21 [facility] [place] [address] Pharmacist Pharmacist 10/14/19 12/01/20 Eduardo Sharma MD [address] [place] [address] Assigned Sleep Provider 04/02/2005/07 Marcelo Artis PA-C [address] [place] [address] 300 [place] [address] Assigned Musculoskeletal Provider 08/25/20 08/20/21 Rodrigo Man PA-C [address] [place] [address] Assigned Surgical Provider 08/25/20 11/27/20 Noreen Flores APRN PATTERN SHOP SUPERVISOR [address] [facility] [place] [address] Assigned PCP 08/05/22 03/16/23 Agatha Null DPM, Podiatry/Foot and Ankle Surgery [address] [place] [address] Assigned Musculoskeletal Provider 11/04/22 Clinic - [facility] [address] [facility] [place] [address] Assigned PCP 07/05/23 documented as of this encounter
--- OUTSIDE RECORDS SUMMARY | 2023-10-26 11:41 | XMS_ITS | Encounter Summary ---
Author Name Unknown Organization [place] Address [address] [place] [address] Care Team Providers Care Commodity Specialist Name Role Phone Noreen Flores APRN AUTOMATIC PINSETTER ADJUSTER Unavailable Noreen Flores APRN AUTOMATIC PINSETTER ADJUSTER Primary Car e Provider Kalyan Galvan Unavailable Unavailable Eduardo Sharma MD Unavailable Marcelo Artis PA-C Unavailable Noreen Flores APRN AUTOMATIC PINSETTER ADJUSTER Unavailable Sudha Greene NP Primary Care Provider [phone] Agatha NullM, Podiatry /Foot and Ankle Surgery Unavailable Clinic - [facility] Unavailable Reason for Visit * Reason Comments Medication Refill Encounter Details Date Type Department Care Team (Late st Contact Info) Description 01/06/2021 Refill [facility] [place] [address] [place] [address] Noreen Flores APRN AUTOMATIC PINSETTER ADJUSTER [address] [facility] [place] [id number] Medication Refill Social History Tobacco Use Types [...] Answer Date Recorded PHQ-2 Score 0 11/10/2020 [facility] of Occupat [...] as of this encounter Care Teams Commodity Specialist Relationship Specialty Start Date End Date Noreen Flores APRN AUTOMATIC PINSETTER ADJUSTER [address] [place] [address] [place] [address] PCP - General Nurse Practitioner 01/09/19 12/12/21 Sudha Greene NP [address] [address] PCP - General 11/01/22 Noreen Flores APRN AUTOMATIC PINSETTER ADJUSTER [address] [place] [address] [place] [address] Assigned PCP 06/16/18 05/26/22 Kalyan Galvan Personal Advocate & Liaison (PAL) 08/08/19 04/26/21 Eduardo Sharma MD [address] [facility] 103 [place] [address] Assigned Sleep Provider 04/02/2005/07 Marcelo Artis PARejiC [address] [place] [address] 300 [place] [address] Assigned Musculoskeletal Provider 08/25/20 08/20/21 Noreen Flores APRN AUTOMATIC PINSETTER ADJUSTER [address] [place] [address] [place] [address] Assigned PCP 08/05/22 03/16/23 Agatha Null, MARÍA, Podiatry/Foot and Ankle Surgery [address] [place] [address] Assigned Musculoskeletal Provider 11/04/22 [facility] [place] [address] [id number] Assigned PCP 07/05/23 documented as of this encounter
--- OUTSIDE RECORDS SUMMARY | 2023-10-26 11:41 | XMS_ITS | Encounter Summary ---
Author Name Unknown Organization [place] Address [address] [place] [address] Care Team Providers Care Civil Engineer Helper Name Role Phone Noreen Flores APRN TIRE MOLD ENGRAVER Unavailable Noreen Flores APRN TIRE MOLD ENGRAVER Primary Car e Provider Kalyan Galvan Unavailable Unavailable Lashae Trevino [facility] Unavailable [phone] Eduardo Sharma MD Unavailable Marcelo Artis PA-C Unavailable [phone] Rodrigo Man PA-C Unavailable [phone] Noreen Flores APRN TIRE MOLD ENGRAVER Unavailable Sudha Greene NP Primary Care Provider Agatha Null DPM, Podiatry /Foot and Ankle Surgery Unavailable [facility] - [place] [facility] Unavailable Encounter Details Date Type Department Care Team (Late st Contact Info) Description 10/20/2020 [facility] [address] [facility] [address] [place] [address] Lainey Wells [...] Answer Date Recorded PHQ-2 Score 2 07/25/2018 [facility] of Occupat ional Health - Occupational Stress [...] as of this encounter Care Teams Civil Engineer Helper Relationship Specialty Start Date End Date Noreen Flores APRN TIRE MOLD ENGRAVER [address] [facility] [place] [address] PCP - General Nurse Practitioner 01/09/19 12/12/21 Sudha Greene, MAURICIO [address] [address] PCP - General 11/01/22 Noreen Flores APRN TIRE MOLD ENGRAVER [address] [place] [address] [place] [address] Assigned PCP 06/16/18 05/26/22 Kalyan Galvan Personal Advocate & Liaison (PAL) 08/08/19 04/26/21 Lashae Trevino, [facility] [place] [address] Pharmacist Pharmacist 10/14/19 12/01/20 Eduardo Sharma MD [address] [place] [address] Assigned Sleep Provider 04/02/2005/07 Marcelo Artis PA-C [address] [facility] [address] [place] [address] Assigned Musculoskeletal Provider 08/25/20 08/20/21 Rodrigo Man PA-C [address] [place] [address] Assigned Surgical Provider 08/25/20 11/27/20 Noreen Flores APRN TIRE MOLD ENGRAVER [address] [facility] [place] [address] Assigned PCP 08/05/22 03/16/23 Agatha Null DPM, Podiatry/Foot and Ankle Surgery [address] [place] [address] Assigned Musculoskeletal Provider 11/04/22 Clinic - [place] [address] [facility] [place] [id number] Assigned PCP 07/05/23 documented as of this encounter
--- OUTSIDE RECORDS SUMMARY | 2023-10-26 11:41 | XMS_ITS | Encounter Summary ---
Author Name Unknown Organization [place] Address [address] [place] [address] Care Team Providers Care Wood Pole Treater Name Role Phone Noreen Flores APRN HYDRODYNAMICS TEACHER Unavailable Noreen Flores APRN HYDRODYNAMICS TEACHER Primary Car e Provider Kalyan Galvan Unavailable Unavailable Eduardo Sharma MD Unavailable Marcelo Artis PA-C Unavailable Noreen Flores APRN HYDRODYNAMICS TEACHER Unavailable Sudha Greene NP Primary Care Provider [phone] Agatha NullM, Podiatry /Foot and Ankle Surgery Unavailable [facility] - [place] [facility] Unavailable Encounter Details Date Type Department Care Team (Late st Contact Info) Description 02/28/2021 MyC Medical Advice [facility] [address] [facility] [address] [place] [address] Lainey Wells Social History Tobacco [...] as of this encounter Care Teams Wood Pole Treater Relationship Specialty Start Date End Date Noreen Flores APRN HYDRODYNAMICS TEACHER [address] [place] [address] [place] [address] PCP - General Nurse Practitioner 01/09/19 12/12/21 Sudha Greene NP [facility] - [address] [address] PCP - General 11/01/22 Noreen Flores APRN HYDRODYNAMICS TEACHER [address] [place] [address] [place] [address] Assigned PCP 06/16/18 05/26/22 Kalyan Galvan Personal Advocate & Liaison (PAL) 08/08/19 04/26/21 Eduardo Sharma MD [address] [address] Assigned Sleep Provider 04/02/2005/07 Marcelo Artis, PA-C [address] [address] Assigned Musculoskeletal Provider 08/25/20 08/20/21 Noreen Flores APRN HYDRODYNAMICS TEACHER [address] [place] [address] [place] [address] Assigned PCP 08/05/22 03/16/23 Agatha Null DPM, Podiatry/Foot and Ankle Surgery [address] [facility] [address] [place] [address] Assigned Musculoskeletal Provider 11/04/22 [facility] [place] [address] [place] [address] Assigned PCP 07/05/23 documented as of this encounter
--- OUTSIDE RECORDS SUMMARY | 2023-10-26 11:41 | XMS_ITS | Encounter Summary ---
Author Name Unknown Organization [place] Address [address] [place] [address] Care Team Providers Care Chemistry Teacher Name Role Phone Noreen Flores APRN QUALITY ASSURANCE SUPERVISOR BODY Unavailable Noreen Flores APRN QUALITY ASSURANCE SUPERVISOR BODY Primary Car e Provider Kalyan Galvan Unavailable Unavailable Lashae Trevino [facility] Unavailable [phone] Eduardo Sharma MD Unavailable Rios Monteiro MD Unavailable [phone] Marcelo Artis PA-C Unavailable [phone] Rodrigo Man PA-C Unavailable [phone] Noreen Flores APRN, CNP Unavailable Sudha Greene NP Primary Care Provider [phone] Agatha Null DPM, Podiatry /Foot and Ankle [...] [facility] [address] [facility] [address] [place] [phone] Jeana-Jd Noreen Sudha, DIESEL TECHNICIAN QUALITY ASSURANCE SUPERVISOR BODY [address] [facility] [place] [address] Refill Request (blood glucose monitoring (ONE TOUCH [...] Answer Date Recorded PHQ-2 Score 2 07/25/2018 [facility] [place] of Occupat ional Health - Occupational Stress [...] Christy Pelayo RN - 06/16/2020 11:04 AM MATERIAL WORKER Prescription approved per [facility] [place] Refill Protocol. Christy Pelayo RN Flex RIAL WORKER * Telephone Encounter - Candy Wilda - 06/14/2020 3:55 PM CST Request from pharmacy states: ONE TOUCH VERIO TEST STRIPS and ONE TOUCH 30G DELICA LNC, RIAL WORKER documented in this encounter Plan of [...] as of this encounter Care Teams Chemistry Teacher Relationship Specialty Start Date End Date Jeana-Noreen Miles APRN QUALITY ASSURANCE SUPERVISOR BODY [address] [place] [address] [place] [address] PCP - General Nurse Practitioner 01/09/19 12/12/21 Sudha Greene NP [facility] & [address] [address] PCP - General 11/01/22 Noreen Flores APRN QUALITY ASSURANCE SUPERVISOR BODY [address] [place] [address] [place] [address] Assigned PCP 06/16/18 05/26/22 Kalyan Galvan Personal Advocate & Liaison (PAL) 08/08/19 04/26/21 [facility] [address] [place] [address] [place] [address] Pharmacist Pharmacist 10/14/19 12/01/20 Eduardo Sharma MD [address] [place] [address] [place] [address] Assigned Sleep Provider 04/02/2005/07 [place] [address] [place] [address] Assigned Musculoskeletal Provider 04/02/20 08/24/20 Marcelo Artis PA-C [address] [place] [place] [address] Assigned Musculoskeletal Provider 08/25/20 08/20/21 Rodrigo Man PA-C [address] [place] [address] [place] [address] Assigned Surgical Provider 08/25/20 11/27/20 Noreen Flores APRN QUALITY ASSURANCE SUPERVISOR BODY [address] [place] [address] [place] [address] Assigned PCP 08/05/22 03/16/23 Agatha Null, MARÍA, Podiatry/Foot and Ankle Surgery [address] [place] [address] Assigned Musculoskeletal Provider 11/04/22 Clinic - [place] [address] [id number] Assigned PCP 07/05/23 documented as of this encounter
--- OUTSIDE RECORDS SUMMARY | 2023-10-26 11:41 | XMS_ITS | Encounter Summary ---
Author Name Unknown Organization [place] Address [address] [place] [address] Care Team Providers Care Wooden Barrel Mechanic Name Role Phone Noreen Flores APRN RELAY MECHANIC Unavailable Noreen Flores APRN RELAY MECHANIC Primary Car e Provider Kalyan Galvan Unavailable Unavailable Lashae Trevino [facility] Unavailable [phone] Eduardo Sharma MD Unavailable Marcelo Artis PA-C Unavailable Rodrigo Man PA-C Unavailable Noreen Flores APRN RELAY MECHANIC Unavailable Sudha Greene NP Primary Care Provider Agatha NullM, Podiatry /Foot and Ankle Surgery Unavailable [facility] [place] [facility] Unavailable Encounter Details Date [...] Answer Date Recorded PHQ-2 Score 2 07/25/2018 [facility] of Occupat ional Health [...] as of this encounter Care Teams Wooden Barrel Mechanic Relationship Specialty Start Date End Date Noreen Flores APRN RELAY MECHANIC [address] [place] [address] [place] [address] PCP - General Nurse Practitioner 01/09/19 12/12/21 Sudha Greene, MAURICIO [address] [address] PCP - General 11/01/22 Noreen Flores APRN RELAY MECHANIC [address] [place] [address] [place] [address] Assigned PCP 06/16/18 05/26/22 Kalyan Galvan Personal Advocate & Liaison (PAL) 08/08/19 04/26/21 Lashae Trevino [facility] [place] [phone] Pharmacist Pharmacist 10/14/19 12/01/20 Eduardo Sharma MD [address] [place] 3286[address] Assigned Sleep Provider 04/02/2005/07 Marcelo Artis PA-C [address] [facility] [place] [address] [place] [address] Assigned Musculoskeletal Provider 08/25/20 08/20/21 Rodrigo Man PA-C [address] [address] [place] [address] Assigned Surgical Provider 08/25/20 11/27/20 Noreen Flores APRN RELAY MECHANIC [address] [facility] [place] [address] Assigned PCP 08/05/22 03/16/23 Agatha Null DPM, Podiatry/Foot and Ankle Surgery [address] [place] [address] Assigned Musculoskeletal Provider 11/04/22 [facility] [place] [facility] [address] [facility] [place] [address] Assigned PCP 07/05/23 documented as of this encounter
--- OUTSIDE RECORDS SUMMARY | 2023-10-26 11:41 | XMS_ITS | Encounter Summary ---
Author Name Unknown Organization [place] Address [address] [place] [address] Care Team Providers Care Diet Clerk Name Role Phone Noreen Flores APRN DIRECTOR OF RESIDENTIAL SERVICES Unavailable Noreen Flores APRN DIRECTOR OF RESIDENTIAL SERVICES Primary Car e Provider Kalyan Galvan Unavailable Unavailable Lashae Trevino [facility] Unavailable [phone] Eduardo Sharma MD Unavailable Marcelo Artis PA-C Unavailable Rodrigo Man PA-C Unavailable [phone] Noreen Flores APRN DIRECTOR OF RESIDENTIAL SERVICES Unavailable Sudha Greene NP Primary Care Provider Agatha Null DPM, Podiatry /Foot and Ankle Surgery Unavailable [facility] [place] [facility] Unavailable Encounter Details Date Type Department Care Team (Late st Contact Info) Description 10/28/2020 Myra oMya [facility] [place] [address] [facility] [address] [place] [address] Lashae Treivno, [facility] [address] [facility] [place] [address] Social History [...] Answer Date Recorded PHQ-2 Score 2 07/25/2018 [facility] [place] of Occupat ional Health - Occupational Stress [...] documented as of this encounter Care Teams Diet Clerk Relationship Specialty Start Date End Date Noreen Flores APRN DIRECTOR OF RESIDENTIAL SERVICES [facility] [place] [address] PCP - General Nurse Practitioner 01/09/19 12/12/21 Sudha Greene NP [address] [address] PCP - General 11/01/22 Noreen Flores APRN DIRECTOR OF RESIDENTIAL SERVICES [address] [place] [address] [place] [address] Assigned PCP 06/16/18 05/26/22 Kalyan Galvan Personal Advocate & Liaison (PAL) 08/08/19 04/26/21 [facility] [address] [place] [address] [place] [address] Pharmacist Pharmacist 10/14/19 12/01/20 Eduardo Sharma MD [address] [facility] [address] [place] [address] Assigned Sleep Provider 04/02/2005/07 Marcelo Artis PA-C [id number] [place] [address] 300 [place] [address] Assigned Musculoskeletal Provider 08/25/20 08/20/21 Rodrigo Man PA-C [address] [place] [address] Assigned Surgical Provider 08/25/20 11/27/20 Noreen Flores APRN DIRECTOR OF RESIDENTIAL SERVICES [address] [facility] [place] [address] Assigned PCP 08/05/22 03/16/23 Agatha Null DPM, Podiatry/Foot and Ankle Surgery [address] [place] [address] [place] [address] Assigned Musculoskeletal Provider 11/04/22 [facility] - [place] [facility] [address] [facility] [place] [address] Assigned PCP 07/05/23 documented as of this encounter
--- OUTSIDE RECORDS SUMMARY | 2023-10-26 11:41 | XMS_ITS | Encounter Summary ---
Author Name Unknown Organization [place] Address [address] [place] [address] Care Team Providers Care Managing Consultant Clinical Professor Name Role Phone Noreen Flores APRN, CNP Unavailable Noreen Flores APRN, CNP Primary Car e Provider Kalyan Galvan Unavailable Unavailable Lashae Trevino [facility] Unavailable [phone] Eduardo Sharma MD Unavailable Rios Monteiro MD Unavailable [phone] Marcelo Artis PA-C Unavailable Rodrigo Man PA-C Unavailable [phone] Noreen Flores APRN, CNP Unavailable Sudha Greene NP Primary Care Provider Agatha Null DPM, Podiatry /Foot and Ankle Surgery Unavailable [facility] - [place] [facility] Unavailable Reason for Visit * Reason Comments Medication Refill Encounter Details Date Type Department Care Team (Late st Contact Info) Description 07/10/2020 Refill [facility] [place] [address] [facility] [address] [place] [address] Noreen Flores APRN CNP [address]305 [facility] [place] [address] Medication Refill [...] Answer Date Recorded PHQ-2 Score 2 07/25/2018 [facility] of Occupat ional Health - [...] Desirae Champagne RN - 07/13/2020 11:10 AM PLUGMAN Routing refill request to provider for review/approval because: Patient taking 8-10 sumatriptan a month. Desirae Champagne RN on 07/13/2020 at 11:11 AM MAN * Telephone Encounter - Lainey Wells - 07/12/2020 2:22 PM CST The pt called back and she says that she takes anywhere from 8-10 a month. Lainey Wells on 07/12/2020 at 2:25 PM MAN * Telephone Encounter - Lainey Wells - 07/12/2020 10:59 AM CST 1st attempt l/m. Lainey Wells on 07/12/2020 at 10:59 AM MAN * Telephone Encounter - Desirae Champagne RN - 07/12/2020 10:02 AM PLUGMAN Please call patient and see how many doses of sumatriptan patient has used in the past month. Should be using 8 doses or fewer per month. Desirae Champagne RN on 07/12/2020 at 10:07 AM MAN documented in this encounter Plan of [...] documented as of this encounter Care Teams Managing Consultant Clinical Professor Relationship Specialty Start Date End Date Noreen Flores APRN PRESS MANAGER [address] [facility] [place] [address] PCP - General Nurse Practitioner 01/09/19 12/12/21 Sudha Greene NP [address] [address] PCP - General 11/01/22 Noreen Flores APRN PRESS MANAGER [address] [place] [address] [place] [address] Assigned PCP 06/16/18 05/26/22 Kalyan Galvan Personal Advocate & Liaison (PAL) 08/08/19 04/26/21 [facility] [address] [place] [address] [place] [address] Pharmacist Pharmacist 10/14/19 12/01/20 Eduardo Sharma MD [address] [address] Assigned Sleep Provider 04/02/2005/07 [place] [address] [address] Assigned Musculoskeletal Provider 04/02/20 08/24/20 Marcelo Artis PA-C [address] [address] Assigned Musculoskeletal Provider 08/25/20 08/20/21 Rodrigo Man PA-C [address] [place] [address] Assigned Surgical Provider 08/25/20 11/27/20 Noreen Flores APRN PRESS MANAGER [address] [facility] [place] [address] Assigned PCP 08/05/22 03/16/23 Agatha Null DPM, Podiatry/Foot and Ankle Surgery [address] [place] [address] [place] 311457 Assigned Musculoskeletal Provider 11/04/22 [facility] - [place] [facility] [address] [facility] [place] [id number] Assigned PCP 07/05/23 documented as of this encounter
--- OUTSIDE RECORDS SUMMARY | 2023-10-26 11:41 | XMS_ITS | Encounter Summary ---
Author Name Unknown Organization [place] Address [address] [place] [address] Care Team Providers Care Clinical Editor Name Role Phone Noreen Flores APRN CONSERVATION OF RESOURCES COMMISSIONER Unavailable Noreen Flores APRN CONSERVATION OF RESOURCES COMMISSIONER Primary Car e Provider Kalyan Galvan Unavailable Unavailable Lashae Trevino [facility] Unavailable [phone] Eduardo Sharma MD Unavailable Rios Monteiro MD Unavailable [phone] Marcelo Artis PA-C Unavailable Rodrigo Man PA-C Unavailable [phone] Noreen Flores APRN CONSERVATION OF RESOURCES COMMISSIONER Unavailable Sudha Greene NP Primary Care Provider Agatha Null DPM, Podiatry /Foot and Ankle Surgery Unavailable Clinic - [place] [facility] Unavailable Encounter Details Date Type Department Care Team (Late st Contact Info) Description 07/15/2020 Myra Moya [facility] [place] [address] [facility] [address] [place] [address] Noreen Flores APRN CNP [address] [facility] [place] [id number] Social History Tobacco Use Types Packs/Day Years [...] Friends and Family Patient declined 08/08/2019 Attends Church Services Patient declined 07/13 Active Member of [...] Answer Date Recorded PHQ-2 Score 2 07/25/2018 [facility] [place] of Occupat ional Health - Occupational Stress [...] COVID-19? No / Unsure 07/17/2020 1:32 PM TRAY SERVER documented as of this encounter Plan of [...] as of this encounter Care Teams Clinical Editor Relationship Specialty Start Date End Date Noreen Flores APRN CONSERVATION OF RESOURCES COMMISSIONER [address] [place] [address] [place] [address] PCP - General Nurse Practitioner 01/09/19 12/12/21 Sudha Greene, MAURICIO [address] [address] PCP - General 11/01/22 Noreen Flores APRN CONSERVATION OF RESOURCES COMMISSIONER [address] [place] [address] [place] [address] Assigned PCP 06/16/18 05/26/22 Kalyan Galvan Personal Advocate & Liaison (PAL) 08/08/19 04/26/21 Lashae Trevino, [facility] [address] [place] [address] Pharmacist Pharmacist 10/14/19 12/01/20 Eduardo Sharma MD [address]363 [place] [address] Assigned Sleep Provider 04/02/2005/07 [place] [address] 209957 Assigned Musculoskeletal Provider 04/02/20 08/24/20 Marcelo Artis PA-C [address] [address] Assigned Musculoskeletal Provider 08/25/20 08/20/21 Rodrigo Man PA-C [address] [address] Assigned Surgical Provider 08/25/20 11/27/20 Noreen Flores APRN CONSERVATION OF RESOURCES COMMISSIONER [address] [place] [address] [place] [address] Assigned PCP 08/05/22 03/16/23 Agatha Null DPM, Podiatry/Foot and Ankle Surgery [address] [facility] [address] [place] [address] Assigned Musculoskeletal Provider 11/04/22 [facility] [place] [facility] [address] [place] [address] [place] [address] Assigned PCP 07/05/23 documented as of this encounter
--- OUTSIDE RECORDS SUMMARY | 2023-10-26 11:41 | XMS_ITS | Encounter Summary ---
Author Name Unknown Organization [place] Address [address] [place] [address] Care Team Providers Care Orange Grower Name Role Phone Noreen Flores APRN ARC CUTTER PLASMA ARC Unavailable Noreen Flores APRN ARC CUTTER PLASMA ARC Primary Car e Provider Kalyan Galvan Unavailable Unavailable Lashae Trevino [facility] Unavailable [phone] Eduardo Sharma MD Unavailable Marcelo Artis PA-C Unavailable Rodrigo Man PA-C Unavailable [phone] Noreen Flores APRN ARC CUTTER PLASMA ARC Unavailable Sudha Greene NP Primary Care Provider Agatha Null DPM, Podiatry /Foot and Ankle Surgery Unavailable Clinic - [place] [facility] Unavailable Reason for Visit * Reason Onset Date Comments Refill Request 09/24/2020 zolpidem (AMBIEN ) 5 MG tablet Encounter Details Date Type Department Care Team (Late st Contact Info) Description 09/24/2020 Iraj Moya [facility] [place] [address] [facility] [address] [facility] [address] [place] [address] Noreen Flores APRN ARC CUTTER PLASMA ARC [address] [facility] [place] [address] Refill Request [...] Friends and Family Patient declined 08/08/2019 Attends Jew Services Patient declined 07/13 Active Member of [...] Answer Date Recorded PHQ-2 Score 2 07/25/2018 [facility] [place] of Occupat ional Health - Occupational Stress [...] documented as of this encounter Care Teams Orange Grower Relationship Specialty Start Date End Date Noreen Flores APRN ARC CUTTER PLASMA ARC [address] [place] [address] [place] [address] PCP - General Nurse Practitioner 01/09/19 12/12/21 Sudha Greene, MAURICIO [address] [address] PCP - General 11/01/22 Noreen Flores APRN ARC CUTTER PLASMA ARC [address] [place] [address] [place] [address] Assigned PCP 06/16/18 05/26/22 Kalyan Galvan Personal Advocate & Liaison (PAL) 08/08/19 04/26/21 Lashae Trevino, [facility] [address] [place] [address] Pharmacist Pharmacist 10/14/19 12/01/20 Eduardo Sharma MD [address] [place] [address] Assigned Sleep Provider 04/02/2005/07 Marcelo Artis PA-C [address] [facility] 300 [place] [address] Assigned Musculoskeletal Provider 08/25/20 08/20/21 Rodrigo Man PA-C [address] [facility] [address] [place] [address] Assigned Surgical Provider 08/25/20 11/27/20 Noreen Flores APRN CNP [address] [place] [address] [place] [address] Assigned PCP 08/05/22 03/16/23 Agatha Null DPM, Podiatry/Foot and Ankle Surgery [address] [place] [address] [address] [place] [address] Assigned Musculoskeletal Provider 11/04/22 [facility] [place] [facility] [address] [place] [address] [place] [address] Assigned PCP 07/05/23 documented as of this encounter
--- OUTSIDE RECORDS SUMMARY | 2023-10-26 11:41 | XMS_ITS | Encounter Summary ---
Author Name Unknown Organization [place] Address [address] [place] [address] Care Team Providers Care Phlebotomist Prn Name Role Phone Noreen Flores APRN ESE TEACHER Unavailable Noreen Flores APRN ESE TEACHER Primary Car e Provider Marcelo Artis PA-C Unavailable [phone] Noreen Flores APRN ESE TEACHER Unavailable Sudha Greene NP Primary Care Provider [phone] Agatha Null DPM, Podiatry /Foot and Ankle Surgery Unavailable [facility] - [place] [facility] Unavailable Encounter Details Date Type Department Care Team (Late st Contact Info) Description 07/25/2021 MyC Medical Advice [facility] [address] [facility] [address] [place] [address] Christi Panda MA Social History Tobacco [...] PHQ-2 Score 0 11/10/2020 [facility] [place] of Occupat ional Health - Occupational [...] documented as of this encounter Care Teams Phlebotomist Prn Relationship Specialty Start Date End Date Noreen Flores APRN ESE TEACHER [address] [facility] [address] [place], [place] [address] PCP - General Nurse Practitioner 01/09/19 12/12/21 Sudha Greene NP [address] [address] PCP - General 11/01/22 Noreen Flores APRN ESE TEACHER [address] [place] [address] [place] [address] Assigned PCP 06/16/18 05/26/22 Marcelo Artis PA-C [address] [place] [address] Assigned Musculoskeletal Provider 08/25/20 08/20/21 Noreen Flores APRN ESE TEACHER [address] [place] [address] [place] [address] Assigned PCP 08/05/22 03/16/23 Agatha Null DPM, Podiatry/Foot and Ankle Surgery [address] [place] [address] 300 [place] [address] Assigned Musculoskeletal Provider 11/04/22 [facility] - [place] [address] [place] [address] Assigned PCP 07/05/23 documented as of this encounter
--- OUTSIDE RECORDS SUMMARY | 2023-10-26 11:41 | XMS_ITS | Encounter Summary ---
Author Name Unknown Organization [place] Address [address] [place] [address] Care Team Providers Care Tool Lathe Operator Name Role Phone Noreen Flores APRN ASSOCIATE 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 Unavailable Sudha Greene NP Primary Care Provider [phone] Agatha Null DPM, Podiatry /Foot and Ankle Surgery Unavailable [place] [facility] [place] [facility] Unavailable Encounter Details Date Type Department Care Team (Late st Contact Info) Description 01/04/2023 Myra Medical Advice [facility] [address] [place] [address] Tony Orozco Social History Tobacco [...] Friends and Family Patient declined 08/08/2019 Attends Mandaeism Services Patient declined 07/13 Active Member of [...] Answer Date Recorded PHQ-2 Score 0 11/10/2020 [facility] of Occupat ional Health - [...] as of this encounter Care Teams Tool Lathe Operator Relationship Specialty Start Date End Date Sudha Greene NP [address] [address] PCP - General 11/01/22 Noreen Flores APRN ASSOCIATE 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 [facility] [place] [address] Assigned PCP 08/05/22 03/16/23 Agatha Null DPM, Podiatry/Foot and Ankle Surgery [address] [place] [address] Assigned Musculoskeletal Provider 11/04/22 Clinic - [place] [facility] [address] [place] [address] [place] [address] Assigned PCP 07/05/23 documented as of this encounter
--- OUTSIDE RECORDS SUMMARY | 2023-10-26 11:41 | XMS_ITS | Encounter Summary ---
Author Name Unknown Organization [place] Address [address] [place] [address] Care Team Providers Care Maint Mechanic Name Role Phone Noreen Flores APRN CHOKER SETTER Unavailable Sudha Greene NP Primary Care Provider Agatha Null DPM, Podiatry /Foot and Ankle Surgery Unavailable A[facility] - Nita [facility] Unavailable Reason for Visit * Reason Onset Date Comments Forms 02/02/2023 Encounter Details Date Type Department Care Team (Late st Contact Info) Description 02/02/2023 [facility] Medical Advice [facility] Podiatry [address] [facility] [address] [place], [place] [address] Agatha Null DPM, Podiatry/Foot and Ankle Surgery [address] [place] [address] Forms Social History Tobacco Use [...] Answer Date Recorded PHQ-2 Score 0 11/10/2020 [facility] [place] of Occupat ional Health - Occupational Stress [...] documented as of this encounter Care Teams Maint Mechanic Relationship Specialty Start Date End Date Sudha Greene NP [address] [address] PCP - General 11/01/22 Noreen Flores APRN CNP [address] [facility] [place] [address] Assigned PCP 08/05/22 03/16/23 Agatha Null DPM, Podiatry/Foot and Ankle Surgery [address] [place] [address] [place], [place] [address] [address] Assigned Musculoskeletal Provider 11/04/22 [facility] [address] [facility] [place] [address] Assigned PCP 07/05/23 documented as of this encounter
--- OUTSIDE RECORDS SUMMARY | 2023-10-26 11:42 | XMS_ITS | Encounter Summary ---
Author Name Unknown Organization [place] Address [address] [place] [address] Care Team Providers Care Lamination Technician Name Role Phone Noreen Flores APRN CHURCH OFFICIAL Unavailable Noreen Flores APRN CHURCH OFFICIAL Primary Car e Provider Kalyan Galvan Unavailable Unavailable Lashae Trevino [facility] Unavailable [phone] Eduardo Sharma MD Unavailable Rios Monteiro MD Unavailable Marcelo Artis PA-C Unavailable Rodrigo Man PA-C Unavailable [phone] Noreen Flores APRN, CNP Unavailable Sudha Greene NP Primary Care Provider [phone] Agatha Null DPM, Podiatry /Foot and Ankle Surgery Unavailable Clinic - [facility] Unavailable Encounter Details Date Type Department Care Team (Late st Contact Info) Description 10/06/2019 [facility] M[facility] [address] [address] Patricia Bonilla Social History Tobacco [...] PHQ-2 Score 2 07/25/2018 [facility] [place] of Occupat ional Health - Occupational Stress [...] Total Score: 9 08/09/19 20 7:03 AM RELIEF MASTER documented as of this encounter Care Teams Lamination Technician Relationship Specialty Start Date End Date Noreen Flores APRN CHURCH OFFICIAL [address] [place] [address] [place] [address] PCP - General Nurse Practitioner 01/09/19 12/12/21 Sudha Greene NP [address] [address] PCP - General 11/01/22 Noreen Flores APRN CHURCH OFFICIAL [address] [place] [address] [place] [address] Assigned PCP 06/16/18 05/26/22 Kalyan Galvan Personal Advocate & Liaison (PAL) 08/08/19 04/26/21 Lashae Trevino [facility] 1440 [facility] [place] [address] Pharmacist Pharmacist 10/14/19 12/01/20 Eduardo Sharma MD [address] [facility] [address] [place] [address] Assigned Sleep Provider 04/02/2005/07 [place] [address] [facility] 300 [place] [address] Assigned Musculoskeletal Provider 04/02/20 08/24/20 Marcelo Artis PA-C [address] [facility] 300 [place] [address] Assigned Musculoskeletal Provider 08/25/20 08/20/21 Rodrigo Man PA-C 6545 [facility] 450 [place] [address] Assigned Surgical Provider 08/25/20 11/27/20 Noreen Flores APRN CHURCH OFFICIAL [address] [place] [address] [place] [address] Assigned PCP 08/05/22 03/16/23 Agatha Null DPM, Podiatry/Foot and Ankle Surgery [address] [facility] 300 [place] [address] Assigned Musculoskeletal Provider 11/04/22 [facility] [address] [facility] [place] [id number] Assigned PCP 07/05/23 documented as of this encounter
--- OUTSIDE RECORDS SUMMARY | 2023-10-26 11:42 | XMS_ITS | Encounter Summary ---
Author Name Unknown Organization [place] Address [address] [place] [address] Care Team Providers Care Call Center Support Representative Name Role Phone Noreen Flores APRN CUPOLA MELTER Unavailable Noreen Flores APRN CUPOLA MELTER Primary Car e Provider Kalyan Galvan Unavailable Unavailable Lashae Trevino [facility] Unavailable [phone] Eduardo Sharma MD Unavailable Rios Monteiro MD Unavailable [phone] Marcelo Artis PA-C Unavailable Rodrigo Man PA-C Unavailable [phone] Noreen Flores APRN CUPOLA MELTER Unavailable Sudha Greene NP Primary Care Provider Agatha Null DPM, Podiatry /Foot and Ankle Surgery Unavailable Clinic - N[facility] Unavailable Encounter Details Date Type Department Care Team (Late st Contact Info) Description 10/28/2019 Myra Moya [facility] [place] [address] [facility] [address] [place] [address] Noreen Flores APRN CNP [address] [facility] [place] [address] Social History Tobacco Use [...] Answer Date Recorded PHQ-2 Score 2 07/25/2018 [facility] [place] of Occupat ional Health - Occupational Stress [...] Total Score: 9 08/09/19 20 7:03 AM CREW TRAINER documented as of this encounter Care Teams Call Center Support Representative Relationship Specialty Start Date End Date Jeana-Noreen Miles APRN CNP [address] [facility] [place] [address] PCP - General Nurse Practitioner 01/09/19 12/12/21 Sudha Greene NP [address] [place] [address] PCP - General 11/01/22 Noreen Flores APRN CUPOLA MELTER [address] [place] [address] [place] [address] Assigned PCP 06/16/18 05/26/22 Kalyan Galvan Personal Advocate & Liaison (PAL) 08/08/19 04/26/21 [facility] [address] [place] [address] [place] [address] Pharmacist Pharmacist 10/14/19 12/01/20 Eduardo Sharma MD [address] [place] [address] [place] [address] Assigned Sleep Provider 04/02/2005/07 [place] [address] [place] [address] [place] [address] Assigned Musculoskeletal Provider 04/02/20 08/24/20 Marcelo Artis PA-C [address] [facility] [address] [place] [address] [place] [address] Assigned Musculoskeletal Provider 08/25/20 08/20/21 Rodrigo Man PA-C [address] [place] [address] [place], [place] [address] Assigned Surgical Provider 08/25/20 11/27/20 Noreen Flores APRN CUPOLA MELTER [address] [place] [address] [place] [address] Assigned PCP 08/05/22 03/16/23 Agatha Null DPM, Podiatry/Foot and Ankle Surgery [address] [place] [address] Assigned Musculoskeletal Provider 11/04/22 Clinic - Nita [place]ring[place] [address] [place] [address] Assigned PCP 07/05/23 documented as of this encounter
--- OUTSIDE RECORDS SUMMARY | 2023-10-26 11:42 | XMS_ITS | Encounter Summary ---
Author Name Unknown Organization [place] Address [address] [place] [address] Care Team Providers Care Concrete Products Dispatcher Name Role Phone Noreen Flores APRN, CNP Unavailable Noreen Flores APRN, CNP Primary Car e Provider Kalyan Galvan Unavailable Unavailable Lashae Trevino [facility] Unavailable Eduardo Sharma MD Unavailable Rios Monteiro MD Unavailable Marcelo Artis PA-C Unavailable Rodrigo Man PA-C Unavailable [phone] Noreen Flores APRN, CNP Unavailable Sudha Greene NP Primary Care Provider Agatha Null DPM, Podiatry /Foot and Ankle Surgery Unavailable Clinic - [facility] Unavailable Reason for Visit * Reason Onset Date Comments Refill Request 08/08/2019 DULoxetine (CYMB EDIN) 30 MG capsule Encounter Details Date Type Department Care Team (Late st Contact Info) Description 08/08/2019 Refill [facility] [address] [facility] [address] [place] [id number] Noreen Flores APRN CNP [address] [place] [address] Refill Request (DULoxetine (CYMBALTA) 30 MG capsule) [...] Date Recorded PHQ-2 Score 2 07/25/2018 [facility] [place] of Occupat ional Health - Occupational Stress [...] Radha Manning RN - 08/13/2019 10:02 AM MORTGAGE LOAN OFFICER Noreen: I spoke with the Pt. The Pt has been taking 1, 30 mg capsule, once per day. She does not want to goup to 60 mg. Yasmin sent this in for her. Radha Manning RN [facility] -- Triage Nurse GAGE LOAN OFFICER * Telephone Encounter - Noreen [place] APRN CNP - 08/11/2019 9:41 AM CST Please verify that she was previously taking 1 tab twice a day. If so, please switch it to 1, 60mg tab, once per day. Pls notify her of the change. GAGE LOAN OFFICER * Telephone Encounter - Gayathri Mcallister RN - 08/11/2019 9:38 AM MORTGAGE LOAN OFFICER Please review sig for duloxetine, hydrochlorothiazide and metformin ( per review of last office visit 2000 mg daily of metformin, I am not sure about Duloxetine sig and dispense amount, Thank you) Gayathri Mcallister RN Message handled by Nurse Triage. GAGE LOAN OFFICER * Telephone Encounter - Kartik Javier - 08/08/2019 5:46 PM CST Also Review Rx directions for Metformin hydrochloride 500 mg. Pharmacy is requesting clarification. GAGE LOAN OFFICER * Telephone Encounter - Kartik Javier - 08/08/2019 2:39 PM CST Script Clarification: Rx has two sets of directions. Please send new Rx with the Proper Directions. Thanks. GAGE LOAN OFFICER documented in this encounter Plan [...] Total Score: 9 08/09/19 20 7:03 AM MORTGAGE LOAN OFFICER documented as of this encounter Care Teams Concrete Products Dispatcher Relationship Specialty Start Date End Date Noreen Flores APRN LEATHER WHITENER [facility] [place] [address] PCP - General Nurse Practitioner 01/09/19 12/12/21 Sudha Greene, [place] [address] [address] PCP - General 11/01/22 Noreen Flores APRN LEATHER WHITENER [address] [place] [address] [place] [address] Assigned PCP 06/16/18 05/26/22 Kalyan Galvan Personal Advocate & Liaison (PAL) 08/08/19 04/26/21 [facility] [address] [place] [address] Pharmacist Pharmacist 10/14/19 12/01/20 Eduardo Sharma MD [address] [place] [address] [place] [id number] Assigned Sleep Provider 04/02/2005/07 [place] [address] [address] Assigned Musculoskeletal Provider 04/02/20 08/24/20 Marcelo Artis PA-C [address] [address] Assigned Musculoskeletal Provider 08/25/20 08/20/21 Rodrigo Man PA-C [address] [address] Assigned Surgical Provider 08/25/20 11/27/20 Noreen Flores APRN LEATHER WHITENER [address] [place] [address] [place] [address] Assigned PCP 08/05/22 03/16/23 Agatha Null DPM, Podiatry/Foot and Ankle Surgery [address] [facility] 300 [place] [address] Assigned Musculoskeletal Provider 11/04/22 [facility] [address] [place] [address] Assigned PCP 07/05/23 documented as of this encounter
--- OUTSIDE RECORDS SUMMARY | 2023-10-26 11:42 | XMS_ITS | Encounter Summary ---
Author Name Unknown Organization [place] Address [address] [place] [address] Care Team Providers Care Pharmacy Technician Inpatient Name Role Phone Noreen Flores APRN EXHIBIT BUILDER Unavailable Noreen Flores APRN EXHIBIT BUILDER Primary Car e Provider Kalyan Galvan Unavailable Unavailable Lashae Trevino [facility] Unavailable [phone] Eduardo Sharma MD Unavailable Rios Monteiro MD Unavailable [phone] Marcelo Artis PA-C Unavailable Rodrigo Man PA-C Unavailable [phone] Noreen Flores APRN, CNP Unavailable Sudha Greene NP Primary Care Provider [phone] Agatha Null DPM, Podiatry /Foot and Ankle Surgery Unavailable Clinic - Nita [facility] Unavailable Encounter Details Date Type Department Care Team (Late st Contact Info) Description 01/22/[address] [facility] [place] [address] [facility] [address] [place] [address] Marcelo Trejo, PT [address]50 [place] [address] Social History Tobacco Use Types [...] Inpatient Relationship Specialty Start Date End Date Noreen Flores APRN EXHIBIT BUILDER [address] [place] [address] [place] [address] PCP - General Nurse Practitioner 01/09/19 12/12/21 Sudha Greene, [place] [address] [address] PCP - General 11/01/22 Noreen Flores APRN EXHIBIT BUILDER [address] [place] [address] [place] [address] Assigned PCP 06/16/18 05/26/22 Kalyan Galvan Personal Advocate & Liaison (PAL) 08/08/19 04/26/21 Lashae Trevino, [facility] [place] [address] Pharmacist Pharmacist 10/14/19 12/01/20 Eduardo Sharma MD [address] [place] [address] [place] [address] Assigned Sleep Provider 04/02/2005/07 [place] [address] [facility] 300 [place] [address] Assigned Musculoskeletal Provider 04/02/20 08/24/20 Marcelo Artis PA-C [address] [facility] 300 [place] [address] Assigned Musculoskeletal Provider 08/25/20 08/20/21 Rodrigo Man PA-C [address] [place] [address] [place] [address] Assigned Surgical Provider 08/25/20 11/27/20 Noreen Flores APRN CNP [address] [place] [address] [place] [address] Assigned PCP 08/05/22 03/16/23 Agatha Null DPM, Podiatry/Foot and Ankle Surgery [address] [place] [address] [address] [place] [address] Assigned Musculoskeletal Provider 11/04/22 [facility] [address] [place] [address] [place] [address] Assigned PCP 07/05/23 documented as of this encounter
--- OUTSIDE RECORDS SUMMARY | 2023-10-26 11:42 | XMS_ITS | Encounter Summary ---
Author Name Unknown Organization [place] Address [address] [place] [address] Care Team Providers Care Necktie Turner Name Role Phone Noreen Flores APRN TRUST MANAGER ASSISTANT Unavailable Noreen Flores APRN TRUST MANAGER ASSISTANT Primary Car e Provider Kalyan Galvan Unavailable Unavailable Lashae Trevino [facility] Unavailable Eduardo Sharma MD Unavailable Rios Monteiro MD Unavailable [phone] Marcelo Artis PA-C Unavailable Rodrigo Man PA-C Unavailable [phone] Noreen Flores APRN, CNP Unavailable Sudha Greene NP Primary Care Provider Agatha Null DPM, Podiatry /Foot and Ankle Surgery Unavailable Clinic - Nita [facility] Unavailable Encounter Details Date Type Department Care Team (Late st Contact Info) Description 05/30/2019 Myra Moya [facility] [address] [facility] [address] [place] [address] Christi Panda MA Social History [...] documented as of this encounter Care Teams Necktie Turner Relationship Specialty Start Date End Date Noreen Flores APRN TRUST MANAGER ASSISTANT [address] [facility] [place] [address] PCP - General Nurse Practitioner 01/09/19 12/12/21 Sudha Greene NP [address] [address] PCP - General 11/01/22 Noreen Flores APRN TRUST MANAGER ASSISTANT [address] [place] [address] [place] [address] Assigned PCP 06/16/18 05/26/22 Kalyan Galvan Personal Advocate & Liaison (PAL) 08/08/19 04/26/21 Lashae Trevino, [facility] [address] [place] [address] Pharmacist Pharmacist 10/14/19 12/01/20 Eduardo Sharma MD [address] [place] [address] [place] [address] Assigned Sleep Provider 04/02/2005/07 [place] [address] [place] [address] 300 [place] [address] Assigned Musculoskeletal Provider 04/02/20 08/24/20 Marcelo Artis [place] [address] [facility] 300 [place] [address] Assigned Musculoskeletal Provider 08/25/20 08/20/21 Rodrigo Man PA-C [address] [facility] 450 [place] [address] Assigned Surgical Provider 08/25/20 11/27/20 Noreen Flores APRN TRUST MANAGER ASSISTANT [address] [place] [address] [place] [id number] Assigned PCP 08/05/22 03/16/23 Agatha Null DPM, Podiatry/Foot and Ankle Surgery [address] [place] [address] [facility] 300 [place] [address] Assigned Musculoskeletal Provider 11/04/22 [facility] - Nita [place] [facility] [address] [facility] DAVID [place] [id number] Assigned PCP 07/05/23 documented as of this encounter
--- OUTSIDE RECORDS SUMMARY | 2023-10-26 11:42 | XMS_ITS | Encounter Summary ---
Author Name Unknown Organization [place] Address [address] [place] [address] Care Team Providers Care Crusher Setter Name Role Phone Noreen Flores APRN, CNP Unavailable Noreen Flores APRN, CNP Primary Car e Provider Kalyan Galvan Unavailable Unavailable Lashae Trevino [facility] Unavailable [phone] Eduardo Sharma MD Unavailable Rios Monteiro MD Unavailable [phone] Marcelo Artis PA-C Unavailable [phone] Rodrigo Man PA-C Unavailable [phone] Noreen Flores APRN, CNP Unavailable Sudha Greene NP Primary Care Provider Agatha Null DPM, Podiatry /Foot and Ankle Surgery Unavailable Clinic - Nita [place] Unavailable Reason for Visit * Reason Onset Date Comments Refill Request 05/29/2020 omeprazole (PRIL OSEC) [address] capsule Encounter Details Date Type Department Care Team (Late st Contact Info) Description 05/29/2020 Refill M [facility] [address] [facility] [address] [place] [address] Noreen Flores APRN SPOOL TENDER [address] [facility] [address] Refill Request (omeprazole (PRILOSEC) [address] [...] Answer Date Recorded PHQ-2 Score 2 07/25/2018 [facility] [place] of Occupat ional Health - Occupational Stress [...] Keyona Mantilla RN - 05/31/2020 10:42 AM HUMAN RESOURCES MANAGER MANUFACTURING Patient has refills remaining with requesting pharmacy. Keyona Palacios - Registered Nurse [facility] Diagnostic Services N RESOURCES MANAGER MANUFACTURING * Telephone Encounter - Kartik Javier - 05/29/2020 5:01 PM CST Alternative Requested: Insurance covers max 90 days in a year. Please submit PA to continue therapy. N RESOURCES MANAGER MANUFACTURING documented in this encounter Plan of Treatment [...] documented as of this encounter Care Teams Crusher Setter Relationship Specialty Start Date End Date Noreen Flores APRN SPOOL TENDER [address] [place] [address] [place] [address] PCP - General Nurse Practitioner 01/09/19 12/12/21 Sudha Greene NP [address] [address] PCP - General 11/01/22 Noreen Flores APRN SPOOL TENDER [address] [place] [address] [place] [address] Assigned PCP 06/16/18 05/26/22 Kalyan Galvan Personal Advocate & Liaison (PAL) 08/08/19 04/26/21 Lashae Trevino, [facility] 1440 [facility] [place] [id number] Pharmacist Pharmacist 10/14/19 12/01/20 Eduardo Sharma MD [address] [place] [address] [place] 821535 Assigned Sleep Provider 04/02/2005/07 [place] [address] [place] [address] [place] [address] Assigned Musculoskeletal Provider 04/02/20 08/24/20 Marcelo Artis PA-C [address] [place] [address] [place] [address] Assigned Musculoskeletal Provider 08/25/20 08/20/21 Rodrigo Man PA-C [address] [place] [address] [place] [address] Assigned Surgical Provider 08/25/20 11/27/20 Noreen Flores APRN SPOOL TENDER [address] [facility] [place] [address] Assigned PCP 08/05/22 03/16/23 Agatha Null, DPM, Podiatry/Foot and Ankle Surgery [address] [facility] 300 [place] [address] Assigned Musculoskeletal Provider 11/04/22 [facility] - [place]ita [place] [address] [place] [address] Assigned PCP 07/05/23 documented as of this encounter
--- OUTSIDE RECORDS SUMMARY | 2023-10-26 11:42 | XMS_ITS | Encounter Summary ---
Author Name Unknown Organization [place] Address [address] [place] [address] Care Team Providers Care Lead Former Name Role Phone Noreen Flores APRN, CNP Unavailable Noreen Flores APRN, CNP Primary Car e Provider Kalyan Galvan Unavailable Unavailable Lashae Trevino [facility] Unavailable [phone] Eduardo Sharma MD Unavailable Rios Monteiro MD Unavailable [phone] Marcelo Artis PA-C Unavailable Rodrigo Man PA-C Unavailable [phone] Noreen Flores APRN, CNP Unavailable Sudha Greene NP Primary Care Provider Agatha Null DPM, Podiatry /Foot and Ankle Surgery Unavailable Clinic - [facility]ita [facility] Unavailable Reason for Visit * Reason Onset Date Comments Medication Refill 04/25/2019 metFORMIN (GLU COPHAGE) 500 MG tablet Encounter Details Date Type Department Care Team (Late st Contact Info) Description 04/25/2019 Refill M [facility] [address] [facility] [address] [place] [phone] Noreen Flores APRN CNP [address] [facility] [place] [address] Medication Refill (metFORMIN (GLUCOPHAGE) 500 MG tablet) [...] Kimberley Bryan RN - 04/28/2019 11:47 AM PRODUCT DEVELOPMENT ACTUARY Routing refill request to provider for review/approval because: Labs not current: LDL, creatinine Due for appointment [employer]CT DEVELOPMENT [employer]UARY * Telephone Encounter - Lara Villalba - [...] & Orders section of the refill encounter. [employer] DEVELOPMENT ACTU[employer] documented in this encounter Plan of Treatment [...] Former Relationship Specialty Start Date End Date Noreen Flores APRN SENIOR COST ESTIMATOR [address] [place] [address] [place] [address] PCP - General Nurse Practitioner 01/09/19 12/12/21 Sudha Greene NP [facility] - [address] [place] [address] PCP - General 11/01/22 Noreen Flores APRN SENIOR COST ESTIMATOR [address] [place] [address] [place] [address] Assigned PCP 06/16/18 05/26/22 Kalyan Galvan Personal Advocate & Liaison (PAL) 08/08/19 04/26/21 [facility] [address] [place] [address] [place] [address] Pharmacist Pharmacist 10/14/19 12/01/20 Eduardo Sharma MD [address] [place] [address] [place] [address] Assigned Sleep Provider 04/02/2005/07 [place] [address] [place] [address] Assigned Musculoskeletal Provider 04/02/20 08/24/20 Marcelo Artis PA-C [address] [place] [address] [place] [address] Assigned Musculoskeletal Provider 08/25/20 08/20/21 Rodrigo Man PA-C [address] [place] [address] [place] [address] Assigned Surgical Provider 08/25/20 11/27/20 Noreen Flores APRN SENIOR COST ESTIMATOR [address] [place] [address] [place] [address] Assigned PCP 08/05/22 03/16/23 Agatha Null, MARÍA, Podiatry/Foot and Ankle Surgery [address] [place] [address] Assigned Musculoskeletal Provider 11/04/22 Clinic - Nita [place] [address] [place] [id number] Assigned PCP 07/05/23 documented as of this encounter
--- OUTSIDE RECORDS SUMMARY | 2023-10-26 11:42 | XMS_ITS | Encounter Summary ---
Author Name Unknown Organization [place] Address [address] [place] [address] Care Team Providers Care Logging Equipment Operator Name Role Phone Vanda Guerrero MD Primary Care Provider [phone] Vanda Guerrero MD Unavailable [phone] Jeana-Noreen Miles APRN OIL PROGRAM COMPLIANCE SPECIALIST Unavailable [facility]-Noreen Miles APRN OIL PROGRAM COMPLIANCE SPECIALIST Unavailable [facility]-JdNoreen castro APRN OIL PROGRAM COMPLIANCE SPECIALIST Primary Car e Provider Kalyan Galvan Unavailable Unavailable Lashae Trevino [facility] Unavailable Eduardo Sharma MD Unavailable Rios Monteiro MD Unavailable [phone] Marcelo Artis PA-C Unavailable Rodrigo ManC Unavailable Jeana-JdNoreen castro APRN OIL PROGRAM COMPLIANCE SPECIALIST Unavailable Sudha Greene NP Primary Care Provider [phone] Agatha Null DPM, Podiatry /Foot and Ankle Surgery Unavailable [facility] [place] [facility] Unavailable Reason for Visit * Reason Onset Date Comments Refill Request 03/04/2018 loratadine-pseud oePHEDrine ([facility] ALLERGY RELIEF-D) 10- 240 MG per 24 hr tablet Encounter Details Date Type Department Care Team (Late st Contact Info) Description 03/04/2018 Refill [facility] [place] [address] [place] [phone] Vanda Guerrero MD [address] [facility] [place] [address] Refill Request (loratadine-pseudoePHED rine ([facility] ALLERGY RELIEF-D) [...] and in station out basket or on MA/COMMUNITY ENGAGEMENT MANAGER/RN desk * Telephone Encounter - Kartik Javier [...] Drug not on the G, P or [facility] refill protocol or controlled substance documented [...] documented as of this encounter Care Teams Logging Equipment Operator Relationship Specialty Start Date End Date Vanda Guerrero MD [address] [place] [address] [place] [address] PCP - General Internal Medicine 04/08/15 01/08/19 Vanda Guerrero MD [address] [place] [address] [place] [address] PCP - Assigned PCP 07/24/16 06/15/18 Noreen Flores APRN OIL PROGRAM COMPLIANCE SPECIALIST [address] [place] [address] [place] [address] PCP - Assigned PCP 06/16/18 08/13/18 Noreen Flores APRN OIL PROGRAM COMPLIANCE SPECIALIST [address] [place] [address] [place] [address] PCP - General Nurse Practitioner 01/09/19 12/12/21 Sudha Greene NP [address] [address] PCP - General 11/01/22 Noreen Flores APRN OIL PROGRAM COMPLIANCE SPECIALIST [address] [place] [address] [place] [address] Assigned PCP 06/16/18 05/26/22 Kalyan Galvan Personal Advocate & Liaison (PAL) 08/08/19 04/26/21 [facility] [address] [facility] [place] [address] Pharmacist Pharmacist 10/14/19 12/01/20 Eduardo Sharma MD [address] [place] [address] [place] [address] Assigned Sleep Provider 04/02/2005/07 [place] [address] [place] [address] [place] [address] Assigned Musculoskeletal Provider 04/02/20 08/24/20 Marcelo Artis PA-C [address] [place] [address] [place] [address] Assigned Musculoskeletal Provider 08/25/20 08/20/21 Rodrigo Man PA-C [address] [place] [address] [place] [id number] Assigned Surgical Provider 08/25/20 11/27/20 Noreen Flores APRN OIL PROGRAM COMPLIANCE SPECIALIST [address] [place] [address] [place] [address] Assigned PCP 08/05/22 03/16/23 Agatha Null, MARÍA, Podiatry/Foot and Ankle Surgery [address] [place] [address] Assigned Musculoskeletal Provider 11/04/22 [facility] [place] [address] [address] Assigned PCP 07/05/23 documented as of this encounter
--- OUTSIDE RECORDS SUMMARY | 2023-10-26 11:42 | XMS_ITS | Encounter Summary ---
Author Name Unknown Organization [place] Address [address] [place] [address] Care Team Providers Care Document Coordinator Name Role Phone Vanda Guerrero MD Primary Care Provider [phone] Vanda Guerrero MD Unavailable [phone] Jeana-Noreen Miles APRN IMCU SPECIALIST Unavailable [facility]-Noreen Miles APRN IMCU SPECIALIST Unavailable [facility]-JdNoreen castro APRN IMCU SPECIALIST Primary Car e Provider Kalyan Galvan Unavailable Unavailable Lashae Trevino [facility] Unavailable Eduardo Sharma MD Unavailable Rios Monteiro MD Unavailable [phone] Marcelo Artis PA-C Unavailable [phone] Rodrigo ManC Unavailable Jeana-JdNoreen castro APRN IMCU SPECIALIST Unavailable Sudha Greene NP Primary Care Provider Agatha Null DPM, Podiatry /Foot and Ankle Surgery Unavailable [facility] [place] [facility] Unavailable Reason for Visit * Reason Comments Medication Refill ONETOUCH ULTRA test strip; simvastatin (ZOCOR) 20 MG tablet Encounter Details Date Type Department Care Team (Late st Contact Info) Description 12/21/[address] [facility] [place] [address] [place] [address] Vanda Guerrero MD [address] [facility] [place] [address] Medication Refill (ONETOUCH ULTRA test strip; simvastatin [...] 12/25/2017 10:56 AM CDT Prescription approved per [facility] Refill Protocol. Day Greene RN, BSN * [...] Depression Total Score: 12 018 1:02 PM DIGITAL PROOFING AND PLATEMAKER documented as of this encounter Care Teams Document Coordinator Relationship Specialty Start Date End Date Vanda Guerrero MD [address] [facility] [place] [address] PCP - General Internal Medicine 04/08/15 01/08/19 Vanda Guerrero MD [address] [facility] [place] [address] PCP - Assigned PCP 07/24/16 06/15/18 Noreen Flores APRN IMCU SPECIALIST [address] [place] [address] [place] [address] PCP - Assigned PCP 06/16/18 08/13/18 Noreen Flores APRN IMCU SPECIALIST [address] [place] [address] [place] [address] PCP - General Nurse Practitioner 01/09/19 12/12/21 Sudha Greene, MAURICIO [address] [address] PCP - General 11/01/22 Noreen Flores APRN IMCU SPECIALIST [address] [place] [address] [place] [address] Assigned PCP 06/16/18 05/26/22 Kalyan Galvan Personal Advocate & Liaison (PAL) 08/08/19 04/26/21 [facility] [address] [facility] [place] [id number] Pharmacist Pharmacist 10/14/19 12/01/20 Eduardo Sharma MD [address] [facility] 103 [place] [id number] Assigned Sleep Provider 04/02/2005/07 [place] [address] [facility] 300 [place] 827607 Assigned Musculoskeletal Provider 04/02/20 08/24/20 Marcelo Artis PA-C [address] [address] Assigned Musculoskeletal Provider 08/25/20 08/20/21 Rodrigo Man PA-C [address] [address] Assigned Surgical Provider 08/25/20 11/27/20 Noreen Flores APRN IMCU SPECIALIST [address] [place] [address] [place] [address] Assigned PCP 08/05/22 03/16/23 Agatha Null DPM, Podiatry/Foot and Ankle Surgery [address] [place] [address] 300 [place] [address] Assigned Musculoskeletal Provider 11/04/22 [facility] [place] [facility] [address] [place], [place] [address] [address] Assigned PCP 07/05/23 documented as of this encounter
--- OUTSIDE RECORDS SUMMARY | 2023-10-26 11:42 | XMS_ITS | Encounter Summary ---
Author Name Unknown Organization [place] Address [address] [place] [address] Care Team Providers Care Civil Engineer'S Aide Name Role Phone Vanda Guerrero MD Primary Care Provider [phone] Vanda Guerrero MD Unavailable [phone] Jeana-Noreen Miles APRN MANUFACTURING ENGINEERING MANAGER Unavailable [facility]oreen Miles APRN MANUFACTURING ENGINEERING MANAGER Unavailable [facility]-JdNoreen castro APRN MANUFACTURING ENGINEERING MANAGER Primary Car e Provider Kalyan Galvan Unavailable Unavailable Lashae Trevino [facility] Unavailable [phone] Eduardo Sharma MD Unavailable Rios Monteiro MD Unavailable Marcelo Artis PA-C Unavailable [phone] Rodrigo ManC Unavailable [phone] Jeana-Noreen Miles APRN MANUFACTURING ENGINEERING MANAGER Unavailable Sudha Greene NP Primary Care Provider Agatha Null DPM, Podiatry /Foot and Ankle Surgery Unavailable [facility] [place] [facility] Unavailable Reason for Visit * Reason Onset Date Comments Patient/info Update 07/18/2017 post C7-T1 i nterlaminar epidural steroid injection Encounter Details Date Type Department Care Team (Late st Contact Info) Description 07/18/2017 Telephone [facility] [place] [address] [facility] [address] [place], [place] [phone] Jim Wang MD [address] [place] [address] Patient/info Update (post C7-T1 interlaminar epidural steroid [...] pt should call the nurse line at [phone]. ACT CENTER SPECIALIST documented in this encounter Plan of Treatment Not on file documented as of this encounter Visit Diagnoses Not on filedocumented in this encounter Additional Health Concerns Infection Onset Date Last Indicated Resolved Time Rule Out COVID-19 08/25/2020 08/25/2020 08/26/2020 3:23 PM CDT Rule Out COVID-19 11/26/2022 11/26/2022 11/27/2022 3:38 PM CDT Assessment Noted Time PHQ-9 Depression Total Score: 12 018 1:02 PM CONTACT CENTER SPECIALIST documented as of this encounter Care Teams Civil Engineer'S Aide Relationship Specialty Start Date End Date Vanda Guerrero MD [address] [place] [address] [place] [address] PCP - General Internal Medicine 04/08/15 01/08/19 Vanda Guerrero MD [address] [place] [address] [place] [address] PCP - Assigned PCP 07/24/16 06/15/18 Noreen Flores APRN MANUFACTURING ENGINEERING MANAGER [address] [place] [address] [place] [address] PCP - Assigned PCP 06/16/18 08/13/18 Noreen Flores APRN MANUFACTURING ENGINEERING MANAGER [address] [place] [address] [place] [address] PCP - General Nurse Practitioner 01/09/19 12/12/21 Sudha Greene, MAURICIO [address] [address] PCP - General 11/01/22 Noreen Flores APRN MANUFACTURING ENGINEERING MANAGER [address] [place] [address] [place] [address] Assigned PCP 06/16/18 05/26/22 Kalyan Galvan Personal Advocate & Liaison (PAL) 08/08/19 04/26/21 Lashae Trevino, [facility] [address] [place] [address] Pharmacist Pharmacist 10/14/19 12/01/20 Eduardo Sharma MD [address] [place] [address] [place] [address] Assigned Sleep Provider 04/02/2005/07 [place] [address] [facility] 300 [place] [address] Assigned Musculoskeletal Provider 04/02/20 08/24/20 Marcelo Artis PA-C [address] [facility] 300 [place] [address] Assigned Musculoskeletal Provider 08/25/20 08/20/21 Rodrigo Man PA-C [address] [place] [address] [place] [address] Assigned Surgical Provider 08/25/20 11/27/20 Noreen Flores APRN MANUFACTURING ENGINEERING MANAGER [address] [place] [address] [place] [id number] Assigned PCP 08/05/22 03/16/23 Agatha Null DPM, Podiatry/Foot and Ankle Surgery [address] [place] [address] [address] [place] [address] Assigned Musculoskeletal Provider 11/04/22 [facility] [place] [facility] [address] [facility] [place] [id number] Assigned PCP 07/05/23 documented as of this encounter
--- OUTSIDE RECORDS SUMMARY | 2023-10-26 11:42 | XMS_ITS | Encounter Summary ---
Author Name Unknown Organization [place] Address [address] [place] [address] Care Team Providers Care Melter Supervisor Electric Arc Furnace Name Role Phone Vanda Guerrero MD Primary Care Provider [phone] Vanda Guerrero MD Unavailable [phone] Jeana-Noreen Miles APRN WAITSTAFF Unavailable [facility]-Noreen Miles APRN WAITSTAFF Unavailable Jeana-Noreen Miles ROLL ON MAN WAITSTAFF Primary Car e Provider Kalyan Galvan Unavailable Unavailable Lashae Trevino [facility] Unavailable [phone] Eduardo Sharma MD Unavailable Rios Monteiro MD Unavailable Marcelo Artis PA-C Unavailable [phone] Rodrigo ManC Unavailable [phone] Jeana-Noreen Miles APRN WAITSTAFF Unavailable Sudha Greene NP Primary Care Provider Agatha Null DPM, Podiatry /Foot and Ankle Surgery Unavailable [facility] [place] [facility] Unavailable Encounter Details Date Type Department Care Team (Late st Contact Info) Description 02/17/2018 [facility] [address] [address] Liya Gonzalez RN Social History Tobacco Use [...] documented as of this encounter Care Teams Melter Supervisor Electric Arc Furnace Relationship Specialty Start Date End Date Vanda Guerrero MD [address] [place] [address] [place] [address] PCP - General Internal Medicine 04/08/15 01/08/19 Vanda Guerrero MD [address] [place] [address] [place] [address] PCP - Assigned PCP 07/24/16 06/15/18 Noreen Flores APRN WAITSTAFF [address] [place] [address] [place] [address] PCP - Assigned PCP 06/16/18 08/13/18 Noreen Flores APRN WAITSTAFF [address] [place] [address] [place] [address] PCP - General Nurse Practitioner 01/09/19 12/12/21 Sudha Greene NP [address] [address] PCP - General 11/01/22 Noreen Flores APRN WAITSTAFF [address] [place] [address] [place] [address] Assigned PCP 06/16/18 05/26/22 Kalyan Galvan Personal Advocate & Liaison (PAL) 08/08/19 04/26/21 Lashae Trevino, [facility] [address] [place] [address] [place] [id number] Pharmacist Pharmacist 10/14/19 12/01/20 Eduardo Sharma MD [address] [place] [address] [place] [address] Assigned Sleep Provider 04/02/2005/07 [place] [address] [place] [address] Assigned Musculoskeletal Provider 04/02/20 08/24/20 Marcelo Artis PA-C [address] [place] [address] [place] [address] Assigned Musculoskeletal Provider 08/25/20 08/20/21 Rodrigo Man PA-C [address] [place] [place] [address] Assigned Surgical Provider 08/25/20 11/27/20 Noreen Flores APRN WAITSTAFF 3[address] [facility] [place] [address] Assigned PCP 08/05/22 03/16/23 Agatha Null DPM, Podiatry/Foot and Ankle Surgery [address] [place] [address] Assigned Musculoskeletal Provider 11/04/22 [facility] [place] [facility] [address] [facility] [place] [address] Assigned PCP 07/05/23 documented as of this encounter
--- OUTSIDE RECORDS SUMMARY | 2023-10-26 11:42 | XMS_ITS | Encounter Summary ---
Author Name Unknown Organization [place] Address [address] [place] [address] Care Team Providers Care Lead Furnace Operator Name Role Phone Noreen Flores APRN ONCOLOGY NAVIGATOR Unavailable Noreen Flores APRN ONCOLOGY NAVIGATOR Primary Car e Provider Kalyan Galvan Unavailable Unavailable Lashae Trevino [facility] Unavailable Eduardo Sharma MD Unavailable Rios Monteiro MD Unavailable Marcelo Artis PA-C Unavailable Rodrigo Man PA-C Unavailable [phone] Noreen Flores APRN ONCOLOGY NAVIGATOR Unavailable Sudha Greene NP Primary Care Provider Agatha Null DPM, Podiatry /Foot and Ankle Surgery Unavailable [facility] [place] [place] [facility] Unavailable Encounter Details Date Type Department Care Team (Late st Contact Info) Description 10/14/2019 [facility] [address] [facility] [address] [place] [address] Lashae Trevino, [facility] [address] [facility] [place] [address] Social History Tobacco Use [...] Recorded PHQ-2 Score 2 07/25/2018 [facility] [place] [facility] Occupat ional Health - Occupational Stress [...] Total Score: 9 08/09/19 20 7:03 AM GUN SEALING MACHINE OPERATOR documented as of this encounter Care Teams Lead Furnace Operator Relationship Specialty Start Date End Date Noreen Flores APRN ONCOLOGY NAVIGATOR [address] [place] [address] [place] [address] PCP - General Nurse Practitioner 01/09/19 12/12/21 Sudha Greene, MAURICIO [address] [address] PCP - General 11/01/22 Noreen Flores APRN ONCOLOGY NAVIGATOR [address] [place] [address] [place] [address] Assigned PCP 06/16/18 05/26/22 Kalyan Galvan Personal Advocate & Liaison (PAL) 08/08/19 04/26/21 Lashae Trevino, [facility] [address] [place] [address] Pharmacist Pharmacist 10/14/19 12/01/20 Eduardo Sharma MD [address] [place] [address] [place] [address] Assigned Sleep Provider 04/02/2005/07 [place] [address] [facility] 300 [place] [address] Assigned Musculoskeletal Provider 04/02/20 08/24/20 Marcelo Artis PA-C [address] [address] Assigned Musculoskeletal Provider 08/25/20 08/20/21 Rodrigo Man PA-C [address] [facility] 450 [place] [address] Assigned Surgical Provider 08/25/20 11/27/20 Noreen Flores APRN ONCOLOGY NAVIGATOR [address] [place] [address] [place] [address] Assigned PCP 08/05/22 03/16/23 Agatha Null DPM, Podiatry/Foot and Ankle Surgery [address] [facility] 300 [place] [address] Assigned Musculoskeletal Provider 11/04/22 [facility] [place] [place] [facility] [address] [facility] [place] [address] Assigned PCP 07/05/23 documented as of this encounter
--- OUTSIDE RECORDS SUMMARY | 2023-10-26 11:42 | XMS_ITS | Encounter Summary ---
Author Name Unknown Organization [place] Address [address] [place] [address] Care Team Providers Care Keeler Polygraph Operator Name Role Phone Vanda Guerrero MD Primary Care Provider [phone] Vanda Guerrero MD Unavailable [phone] Jeana-Noreen Miles APRN CAPTAIN/AIRLINE PILOT Unavailable [facility]-Noreen Miles APRN CAPTAIN/AIRLINE PILOT Unavailable [facility]-JdNoreen castro APRN CAPTAIN/AIRLINE PILOT Primary Car e Provider Kalyan Galvan Unavailable Unavailable Lashae Trevino [facility] Unavailable Eduardo Sharma MD Unavailable Rios Monteiro MD Unavailable Marcelo Artis PA-C Unavailable [phone] Rodrigo Man PA-C Unavailable [facility]ana-Noreen Miles APRN CAPTAIN/AIRLINE PILOT Unavailable Sudha Greene NP Primary Care Provider [phone] Agatha Null DPM, Podiatry /Foot and Ankle Surgery Unavailable [facility] [place] [facility] Unavailable Reason for Visit * Reason Comments Medication Refill zolpidem (AMBIEN) 5 MG tablet Encounter Details Date Type Department Care Team (Late st Contact Info) Description 02/20/2018 Refill [facility] [place] [address] [facility] [facility] [address] [place] [address] Vanda Guerrero MD [address] [facility] [place] [address] Medication Refill (zolpidem (AMBIEN) 5 MG tablet) [...] and in station out basket or on MA/LITHOGRAPHY CONTACT WORKER/RN desk * Telephone Encounter - Gayathri Mcallister RN - 02/21/2018 3:33 PM CDT TAR CHASER checked: patient refilled: 06/12, 07/07 and 10/04 [...] documented as of this encounter Care Teams Keeler Polygraph Operator Relationship Specialty Start Date End Date Vanda Guerrero MD [address] [place] [address] [place] [address] PCP - General Internal Medicine 04/08/15 01/08/19 Vanda Guerrero MD [address] [place] [address] [place] [address] PCP - Assigned PCP 07/24/16 06/15/18 Noreen Flores APRN CAPTAIN/AIRLINE PILOT [address] [place] [address] [place] [address] PCP - Assigned PCP 06/16/18 08/13/18 Noreen Flores APRN CAPTAIN/AIRLINE PILOT [address] [facility] [place] [address] PCP - General Nurse Practitioner 01/09/19 12/12/21 Sudha Greene NP [address] [address] PCP - General 11/01/22 Noreen Flores, SEAN CAPTAIN/AIRLINE PILOT [address] [place] [address] [place] [address] Assigned PCP 06/16/18 05/26/22 Kalyan Galvan Personal Advocate & Liaison (PAL) 08/08/19 04/26/21 [facility] [address] [place] [address] [place] [address] Pharmacist Pharmacist 10/14/19 12/01/20 Eduardo Sharma MD [address] [place] [id number] Assigned Sleep Provider 04/02/2005/07 [place] [address] [facility] [address] [place] [address] Assigned Musculoskeletal Provider 04/02/20 08/24/20 Marcelo Artis PA-C [address] [facility] [address] [place], [place] 66[address] Assigned Musculoskeletal Provider 08/25/20 08/20/21 Rodrigo Man PA-C [address] [place] [address] Assigned Surgical Provider 08/25/20 11/27/20 Noreen Flores APRN CAPTAIN/AIRLINE PILOT [address] [facility] [place] [address] Assigned PCP 08/05/22 03/16/23 Agatha Null DPM, Podiatry/Foot and Ankle Surgery [address] [address] [place] [address] Assigned Musculoskeletal Provider 11/04/22 [facility] 3[address] [facility] [place] [id number] Assigned PCP 07/05/23 documented as of this encounter
--- OUTSIDE RECORDS SUMMARY | 2023-10-26 11:42 | XMS_ITS | Encounter Summary ---
Author Name Unknown Organization [place] Address [address] [place] [address] Care Team Providers Care Haul Truck Driver Name Role Phone Vanda Guerrero MD Primary Care Provider [phone] Noreen Flores APRN RESEARCH KENNEL SUPERVISOR Unavailable Noreen Flores APRN RESEARCH KENNEL SUPERVISOR Primary Car e Provider Kalyan Galvan Unavailable Unavailable Lashae Trevino [facility] Unavailable [phone] Eduardo Sharma MD Unavailable Rios Monteiro MD Unavailable Marcelo Artis PA-C Unavailable Rodrigo Man PA-C Unavailable [phone] Noreen Flores APRN RESEARCH KENNEL SUPERVISOR Unavailable Sudha Greene NP Primary Care Provider Agatha Null DPM, Podiatry /Foot and Ankle Surgery Unavailable [facility] [place] [place] [facility] Unavailable Encounter Details Date Type Department Care Team (Late st Contact Info) Description 12/09/2018 [facility] [address] [facility] [address] [place] [address] Christi Panda [...] Depression Total Score: 7 06/25/19 9:49 AM FREELANCE PATTERNMAKER documented as of this encounter Care Teams Haul Truck Driver Relationship Specialty Start Date End Date Vanda Guerrero MD [address] [place] [address] [place] [address] PCP - General Internal Medicine 04/08/15 01/08/19 Noreen Flores APRN RESEARCH KENNEL SUPERVISOR [address] [place] [address] [place] [address] PCP - General Nurse Practitioner 01/09/19 12/12/21 Sudha Greene NP [address] [address] PCP - General 11/01/22 Noreen Flores APRN RESEARCH KENNEL SUPERVISOR [address] [place] [address] [place] [address] Assigned PCP 06/16/18 05/26/22 Kalyan Galvan Personal Advocate & Liaison (PAL) 08/08/19 04/26/21 [facility] [place] [address] Pharmacist Pharmacist 10/14/19 12/01/20 Eduardo Sharma MD [address] [place] [address] Assigned Sleep Provider 04/02/2005/07 [place] [address] [place] [address] 300 [place] 7[address]27 Assigned Musculoskeletal Provider 04/02/20 08/24/20 Marcelo Artis PA-C [address] [place] [address] 300 [place] [address] Assigned Musculoskeletal Provider 08/25/20 08/20/21 Rodrigo Man PA-C [address] [place] [id number] Assigned Surgical Provider 08/25/20 11/27/20 Noreen Flores APRN RESEARCH KENNEL SUPERVISOR [address] [place] [address] [place] [address] Assigned PCP 08/05/22 03/16/23 Agatha Null DPM, Podiatry/Foot and Ankle Surgery [address] [place] [address] [place] [address] Assigned Musculoskeletal Provider 11/04/22 [facility] [place] [facility] 3305 [facility] [place] [address] Assigned PCP 07/05/23 documented as of this encounter
--- OUTSIDE RECORDS SUMMARY | 2023-10-26 11:42 | XMS_ITS | Encounter Summary ---
Author Name Unknown Organization [facility] Address [address] [place] [address] Care Team Providers Care Paint Maker Name Role Phone Noreen Flores APRN SLAB OFF MILL TENDER Unavailable Noreen Flores APRN SLAB OFF MILL TENDER Primary Car e Provider Kalyan Galvan Unavailable Unavailable Lashae Trevino [facility] Unavailable Eduardo Sharma MD Unavailable Rios Monteiro MD Unavailable [phone] Marcelo Artis PA-C Unavailable Rodrigo Man PA-C Unavailable [phone] Noreen Flores APRN SLAB OFF MILL TENDER Unavailable Sudha Greene NP Primary Care Provider Agatha Null DPM, Podiatry /Foot and Ankle Surgery Unavailable Clinic - [facility] [place] [facility] Unavailable Encounter Details Date Type Department Care Team (Late st Contact Info) Description 05/31/2019 Myra Moya [facility] [place] [address] [place] [address] Noreen Flores APRN CNP [address] [facility] [place] [address] Chronic seasonal allergic rhinitis [...] Angel Faria RN - 06/02/2019 8:06 AM SENIOR COMPENSATION ANALYST Previous Rx did not successful e-scribe to pharmacy. Routing to PCP for approval. Please sent via fax. Multiple attempts in the past year with unsuccessful e-scribing. Route back to [facility] when completed. - Radu Faria RN Triage [facility] OR COMPENSATION ANALYST documented in this encounter Plan of [...] as of this encounter Care Teams Paint Maker Relationship Specialty Start Date End Date Noreen Flores APRN SLAB OFF MILL TENDER [facility] [place] [address] PCP - General Nurse Practitioner 01/09/19 12/12/21 Sudha Greene NP [address] [address] PCP - General 11/01/22 Noreen Flores APRN SLAB OFF MILL TENDER [address] [facility] [place] [address] Assigned PCP 06/16/18 05/26/22 Kalyan Galvan Personal Advocate & Liaison (PAL) 08/08/19 04/26/21 Lashae Trevino, [facility] [address] [place] [address] [place] [address] Pharmacist Pharmacist 10/14/19 12/01/20 Eduardo Sharma MD [address] [place] [address] [place] [address] Assigned Sleep Provider 04/02/2005/07 [place] [address] [place] [address] [place] [address] Assigned Musculoskeletal Provider 04/02/20 08/24/20 Marcelo Artis PA-C [address] [place] [address] [place] [address] Assigned Musculoskeletal Provider 08/25/20 08/20/21 Rodrigo Man PA-C [address] [place] [address] Assigned Surgical Provider 08/25/20 11/27/20 Noreen Flores APRN SLAB OFF MILL TENDER [facility] [place] [address] Assigned PCP 08/05/22 03/16/23 Agatha Null, DPNita, Podiatry/Foot and Ankle Surgery [address] [place] [address] Assigned Musculoskeletal Provider 11/04/22 [facility] [place] [address] [place] [address] Assigned PCP 07/05/23 documented as of this encounter
--- OUTSIDE RECORDS SUMMARY | 2023-10-26 11:42 | XMS_ITS | Encounter Summary ---
Author Name Unknown Organization [place] Address [address] [place] [address] Care Team Providers Care Site Lead Name Role Phone Vanda Guerrero MD Primary Care Provider [phone] Noreen Flores APRN INSIDE FINISHER Unavailable Noreen Flores APRN, CNP Primary Car e Provider Kalyan Galvan Unavailable Unavailable Lashae Trevino [facility] Unavailable [phone] Eduardo Sharma MD Unavailable Rios Monteiro MD Unavailable Marcelo Artis PA-C Unavailable [phone] Rodrigo Man PA-C Unavailable [phone] Noreen Flores APRN INSIDE FINISHER Unavailable Sudha Greene NP Primary Care Provider Agatha Null DPM, Podiatry /Foot and Ankle Surgery Unavailable Clinic - [facility] [place] [facility] Unavailable Encounter Details Date Type Department Care Team (Late st Contact Info) Description 12/05/2018 Myra Medical Lucy Moya [facility] [place] [address] [place] [address] Noreen Flores APRN CNP [address] [facility] [place] [address] Social History Tobacco Use Types Packs/Day Years [...] Depression Total Score: 7 06/25/19 9:49 AM STRATEGIC ACCOUNTS MANAGER documented as of this encounter Care Teams Site Lead Relationship Specialty Start Date End Date Vanda Guerrero MD [address] [place] [address] [place] [address] PCP - General Internal Medicine 04/08/15 01/08/19 Noreen Flores APRN INSIDE FINISHER [address] [place] [address] [place] [address] PCP - General Nurse Practitioner 01/09/19 12/12/21 Sudha Greene NP [address] [address] PCP - General 11/01/22 Noreen Flores APRN INSIDE FINISHER [address] [place] [address] [place] [address] Assigned PCP 06/16/18 05/26/22 Kalyan Galvan Personal Advocate & Liaison (PAL) 08/08/19 04/26/21 Lashae Trevino [facility] [address] [facility] [place] [address] Pharmacist Pharmacist 10/14/19 12/01/20 Eduardo Sharma MD [address] [place], [place] [address] Assigned Sleep Provider 04/02/2005/07 [place] [address] [facility] 300 [place] [address] Assigned Musculoskeletal Provider 04/02/20 08/24/20 Marcelo Artis PA-C [address] [facility] 300 [place] [address] Assigned Musculoskeletal Provider 08/25/20 08/20/21 Rodrigo Man PA-C [address] [place], [place] [address] Assigned Surgical Provider 08/25/20 11/27/20 Noreen Flores APRN INSIDE FINISHER [address] [facility] [place] [address] Assigned PCP 08/05/22 03/16/23 Agatha Null, DPM, Podiatry/Foot and Ankle Surgery [address] [facility] 300 [place], [place] 552407 Assigned Musculoskeletal Provider 11/04/22 [facility] - [facility] [place] [address] [address] Assigned PCP 07/05/23 documented as of this encounter
--- OUTSIDE RECORDS SUMMARY | 2023-10-26 11:42 | XMS_ITS | Encounter Summary ---
Author Name Unknown Organization [place] Address [address] [place] [address] Care Team Providers Care Legal Intern Name Role Phone Noreen Flores APRN ELECTRIC ARC WELDER Unavailable Noreen Flores APRN ELECTRIC ARC WELDER Primary Car e Provider Kalyan Galvan Unavailable Unavailable Lashae Trevino [facility] Unavailable Eduardo Sharma MD Unavailable Rios Monteiro MD Unavailable Marcelo Artis PA-C Unavailable Rodrigo Man PA-C Unavailable [phone] Noreen Flores APRN ELECTRIC ARC WELDER Unavailable Sudah Greene NP Primary Care Provider [phone] Agatha Null DPM, Podiatry /Foot and Ankle Surgery Unavailable Clinic - [facility] [place] [facility] Unavailable Encounter Details Date Type Department Care Team (Late st Contact Info) Description 12/23/2019 Myra Moya [facility] [place] [address] [place] [address] Noreen Flores APRN CNP 3305 [facility] [place] [id number] Chronic seasonal allergic rhinitis Social History Tobacco [...] PHQ-2 Score 2 07/25/2018 [facility] [place] of Occupat ional Health - Occupational Stress [...] PM CDT Please call [facility] in [facility] and find out why they are [...] Total Score: 9 08/09/19 20 7:03 AM MOBILE LOUNGE DRIVER OR OPERATOR documented as of this encounter Care Teams Legal Intern Relationship Specialty Start Date End Date Noreen Flores APRN ELECTRIC ARC WELDER [address] [facility] [place] [address] PCP - General Nurse Practitioner 01/09/19 12/12/21 Sudha Greene NP [address] [address] PCP - General 11/01/22 Noreen Flores APRN ELECTRIC ARC WELDER [address] [place] [address] [place] [address] Assigned PCP 06/16/18 05/26/22 Kalyan Galvan Personal Advocate & Liaison (PAL) 08/08/19 04/26/21 [facility] [address] [place] [address] [place] [address] Pharmacist Pharmacist 10/14/19 12/01/20 Eduardo Sharma MD [address] [address] Assigned Sleep Provider 04/02/2005/07 [place] [address] [address] Assigned Musculoskeletal Provider 04/02/20 08/24/20 Marcelo Artis PA-C [address] [address] Assigned Musculoskeletal Provider 08/25/20 08/20/21 Rodrigo Man PA-C [address] [place] [address] Assigned Surgical Provider 08/25/20 11/27/20 Noreen Flores APRN ELECTRIC ARC WELDER [address] [facility] [place] [address] Assigned PCP 08/05/22 03/16/23 Agatha Null DPM, Podiatry/Foot and Ankle Surgery [address] [place] [address] [place] [address]207 Assigned Musculoskeletal Provider 11/04/22 [facility] - [facility] [place] 3[address] [facility] [place] [id number] Assigned PCP 07/05/23 documented as of this encounter
--- OUTSIDE RECORDS SUMMARY | 2023-10-26 11:42 | XMS_ITS | Encounter Summary ---
Author Name Unknown Organization [place] Address [address] [place] [address] Care Team Providers Care Coarse Wire Drawer Name Role Phone Vanda Guerrero MD Primary Care Provider [phone] Vanda Guerrero MD Unavailable [phone] Jeana-Noreen Miles APRN DANDY TENDER Unavailable [facility]-Noreen Miles APRN DANDY TENDER Unavailable [facility]-JdNoreen castro APRN DANDY TENDER Primary Car e Provider Kalyan Galvan Unavailable Unavailable Lashae Trevino [facility] Unavailable [phone] Eduardo Sharma MD Unavailable Rios Monteiro MD Unavailable Marcelo Artis PA-C Unavailable Rodrigo ManC Unavailable Jeana-JdNoreen castro APRN DANDY TENDER Unavailable Sudha Greene NP Primary Care Provider Agatha Null DPM, Podiatry /Foot and Ankle Surgery Unavailable [facility] [place] [facility] Unavailable Reason for Visit * Reason Onset Date Comments MyChart Communication 02/05/2018 Encounter Details Date Type Department Care Team (Late st Contact Info) Description 02/05/2018 [facility] [place] [address] [place] [address] Drive [address] [place] [address] Vanda Guerrero MD [address] [place] [address] [place] [address] MyChart Communication Social History Tobacco Use Types [...] Total Score: 12 06/12/ 018 1:02 PM SENIOR BUSINESS INTELLIGENCE ANALYST documented as of this encounter Care Teams Coarse Wire Drawer Relationship Specialty Start Date End Date Vanda Guerrero MD [address] [place] [address] [place] [address] PCP - General Internal Medicine 04/08/15 01/08/19 Vanda Guerrero MD [address] [place] [address] [place] [address] PCP - Assigned PCP 07/24/16 06/15/18 Noreen Flores APRN DANDY TENDER [address] [place] [address] [place] [address] PCP - Assigned PCP 06/16/18 08/13/18 Noreen Flores APRN DANDY TENDER 3305 [facility] [place] [address] PCP - General Nurse Practitioner 01/09/19 12/12/21 Sudha Greene NP [address] [address] PCP - General 11/01/22 [facility] DANDY TENDER [address] [place] [address] [place] [address] Assigned PCP 06/16/18 05/26/22 Kalyan Galvan Personal Advocate & Liaison (PAL) 08/08/19 04/26/21 [facility] [address] [place] [address] [place] [address] Pharmacist Pharmacist 10/14/19 12/01/20 Eduardo Sharma MD [address] [place] [place] [address] Assigned Sleep Provider 04/02/2005/07 [place] [address] [facility] 300 [place] [address] Assigned Musculoskeletal Provider 04/02/20 08/24/20 Marcelo Artis PA-C [address] [facility] [address] [place] [address] Assigned Musculoskeletal Provider 08/25/20 08/20/21 Rodrigo Man PA-C [address] [place] [place] [address] Assigned Surgical Provider 08/25/20 11/27/20 Noreen Flores APRN DANDY TENDER 3305 [facility] [place] [address] Assigned PCP 08/05/22 03/16/23 Agatha Null DPM, Podiatry/Foot and Ankle Surgery [address] [place] [address] [place] [address] Assigned Musculoskeletal Provider 11/04/22 [facility] - [facility] 3305 [facility] [place] [address] Assigned PCP 07/05/23 documented as of this encounter
--- OUTSIDE RECORDS SUMMARY | 2023-10-26 11:42 | XMS_ITS | Encounter Summary ---
Author Name Unknown Organization [facility] Address [address] [place] [address] Care Team Providers Care Neuropsychologist Name Role Phone Vanda Guerrero MD Primary Care Provider [phone] Vanda Guerrero MD Unavailable [phone] Jeana-Noreen Miles APRN MORTAR CARRIER Unavailable [facility]-Noreen Miles APRN MORTAR CARRIER Unavailable [facility]-JdNoreen castro APRN MORTAR CARRIER Primary Car e Provider Kalyan Galvan Unavailable Unavailable Lashae Trevino [facility] Unavailable [phone] Eduardo Sharma MD Unavailable Rios Monteiro MD Unavailable [phone] Marcelo ArtisC Unavailable [phone] Rodrigo Man-C Unavailable Jeana-Noreen Miles APRN MORTAR CARRIER Unavailable Sudha Greene NP Primary Care Provider Agatha Null DPM, Podiatry /Foot and Ankle Surgery [facility] Unavailable Reason for Referral * Diagnostic Imaging Ultrasound - Closed Specialty Diagnoses / Procedures Referred By Rylie t Referred To Contact Radiology. Diagnoses Alkaline phosphatase elevation Procedures [place] [address] [place] [address] [place] [address] Rh Ultrasound Rscc [address] [facility] [address] [place] [address] Referral ID Status Reason Start Date Expiration Date Visits Re quested Visits Authorized [id number] Closed 06/15/2017 06/15/2018 1 1 UREMENT ACCOUNTANT Reason for Visit * Reason Onset Date Comments Lab Result Notice 06/15/2017 response to 06/12/17 result note Encounter Details Date Type Department Care Team (Late st Contact Info) Description 06/15/2017 MyC Medical Advice [facility] [address] [facility] [address] [place] [phone] Vanda Guerrero MD [address] [place] [address] [place] [id number] Lab Result Notice (response to 06/12/17 resu... [...] Kallie Celaya RN - 06/15/2017 4:26 PM PROCUREMENT ACCOUNTANT Sent [employer] message. UREMENT ACCOUNTANT * Telephone Encounter - Vanda Guerrero MD - 06/15/2017 2:48 PM PROCUREMENT ACCOUNTANT Orders placed - please let patient know. UREMENT ACCOUNTANT * Telephone Encounter - Kallie Celaya RN - 06/15/2017 2:31 PM PROCUREMENT ACCOUNTANT Patient ok to restart Metformin & for US. T'd up. Please advise. UREMENT ACCOUNTANT documented in this encounter Plan of Treatment Not on file documented as of this encounter Results * US Abdomen Limited (06/21/2017 10:11 AM PROCUREMENT ACCOUNTANT) Anatomical Region Laterality Modality Abdomen/Pelvis Ultrasound Impressions 06/21/2017 10:49 AM PROCUREMENT ACCOUNTANT IMPRESSION: ??Fatty infiltration of the liver. No gallstones or bile duct dilatation. BRIDGETTE LOZA MD Narrative 06/21/2017 10:49 AM PROCUREMENT ACCOUNTANT ULTRASOUND ABDOMEN LIMITED 06/21/2017 10:11 AM HISTORY: [...] Depression Total Score: 12 018 1:02 PM PROCUREMENT ACCOUNTANT documented as of this encounter Care Teams Neuropsychologist Relationship Specialty Start Date End Date Vanda Guerrero MD [address] [place] [address] [place] [address] PCP - General Internal Medicine 04/08/15 01/08/19 Vanda Guerrero MD [address] [place] [address] [place] [address] PCP - Assigned PCP 07/24/16 06/15/18 Noreen Flores APRN MORTAR CARRIER [address] [place] [address] [place] [address] PCP - Assigned PCP 06/16/18 08/13/18 Noreen Flores APRN MORTAR CARRIER [address] [place] [address] [place] [address] PCP - General Nurse Practitioner 01/09/19 12/12/21 Sudha Greene, [place] [address] [address] PCP - General 11/01/22 Noreen Flores APRN MORTAR CARRIER [address] [place] [address] [place] [address] Assigned PCP 06/16/18 05/26/22 Kalyan Galvan Personal Advocate & Liaison (PAL) 08/08/19 04/26/21 Lashae Trevino, [facility] [address] [place] [address] Pharmacist Pharmacist 10/14/19 12/01/20 Eduardo Sharma MD [address] [place] [place] [address]65 Assigned Sleep Provider 04/02/2005/07 [place] [address] [facility] 300 [place], [place] 7[address] Assigned Musculoskeletal Provider 04/02/20 08/24/20 Marcelo Artis PA-C [address] [place] [address] 300 [place] [address] Assigned Musculoskeletal Provider 08/25/20 08/20/21 Rodrigo Man PA-C [address] [place] [address] Assigned Surgical Provider 08/25/20 11/27/20 Noreen Flores APRN CNP [address] [place] [address] [place] [address] Assigned PCP 08/05/22 03/16/23 Agatha Null DPM, Podiatry/Foot and Ankle Surgery [address] [place] [address] [address] [place] [address] Assigned Musculoskeletal Provider 11/04/22 [facility] [place] [facility] 3305 [facility] [place] [address] Assigned PCP 07/05/23 documented as of this encounter
--- OUTSIDE RECORDS SUMMARY | 2023-10-26 11:42 | XMS_ITS | Encounter Summary ---
Author Name Unknown Organization [place] Address [address] [place] [address] Care Team Providers Care Traffic Maintenance Supervisor Name Role Phone Noreen Flores APRN, CNP Unavailable Noreen Flores APRN PEDIATRIC GENETIC COUNSELOR Primary Car e Provider Kalyan Galvan Unavailable Unavailable Lashae Trevino [facility] Unavailable Eduardo Sharma MD Unavailable Rios Monteiro MD Unavailable Marcelo Artis PA-C Unavailable Rodrigo Man PA-C Unavailable [phone] Noreen Flores APRN PEDIATRIC GENETIC COUNSELOR Unavailable Sudha Greene NP Primary Care Provider [phone] Agatha Null DPM, Podiatry /Foot and Ankle Surgery Unavailable Clinic - [facility] [place] [facility] Unavailable Reason for Visit * Reason Onset Date Comments Outreach 12/09/2019 Encounter Details Date Type Department Care Team (Late st Contact Info) Description 12/09/2019 Myra Medical Advice [facility] [place] [address] [facility] [address] [place] [address] Noreen Flores APRN CNP [address]305 [facility] [place] [address] Outreach Social History Tobacco Use Types Packs/Day [...] Answer Date Recorded PHQ-2 Score 2 07/25/2018 [facility] [place] of Occupat ional Health - Occupational Stress [...] Called pharmacy noted that pt did not fruit picker the Imitrex 50 mg. Additionally, pharmacy requested that an order be faxed for the Loratadine-d as the e-prescribe didnot transmit to them. Fax number: [phone] Kalyan Galvan, EMT at 9:53 AM on December 11, 2019 [facility] Health Guide [phone] documented in this encounter Plan of Treatment [...] Total Score: 9 08/09/19 20 7:03 AM TEST CAR DRIVER documented as of this encounter Care Teams Traffic Maintenance Supervisor Relationship Specialty Start Date End Date Noreen Flores APRN PEDIATRIC GENETIC COUNSELOR [address] [place] [address] [place] [address] PCP - General Nurse Practitioner 01/09/19 12/12/21 Sudha Greene NP [address] [address] PCP - General 11/01/22 Noreen Flores APRN PEDIATRIC GENETIC COUNSELOR [address] [place] [address] [place] [address] Assigned PCP 06/16/18 05/26/22 Kalyan Galvan Personal Advocate & Liaison (PAL) 08/08/19 04/26/21 Lashae Trevino, [facility] 14[address] [facility] [place] [id number] Pharmacist Pharmacist 10/14/19 12/01/20 Eduardo Sharma MD [address] [place] [address] [place] [address] Assigned Sleep Provider 04/02/2005/07 [place] [address] [place] [address] [place] [address] Assigned Musculoskeletal Provider 04/02/20 08/24/20 Marcelo Artis PA-C [address] [place] [address] [place] [address] Assigned Musculoskeletal Provider 08/25/20 08/20/21 Rodrigo Man PA-C [address] [place] [address] Assigned Surgical Provider 08/25/20 11/27/20 Noreen Flores APRN PEDIATRIC GENETIC COUNSELOR [address] [facility] [place] [address] Assigned PCP 08/05/22 03/16/23 Agatha Null, DPM, Podiatry/Foot and Ankle Surgery [address] [place] [address] Assigned Musculoskeletal Provider 11/04/22 Clinic - [facility] [place] [address] [place] [address] Assigned PCP 07/05/23 documented as of this encounter
--- OUTSIDE RECORDS SUMMARY | 2023-10-26 11:43 | XMS_ITS | Encounter Summary ---
Author Name Unknown Organization [place] Address [address] [place] [address] Care Team Providers Care Back Hoe Machine Operator Name Role Phone Selma Good APRN BRUSH HOLDER INSPECTOR Primary Care Pro vider Vanda Guerrero MD Primary Care Provider [phone] Vanda Guerrero MD Unavailable [phone] Jeana-JdNoreen castro APRN, CNP Unavailable Jeana-JdNoreen castro APRN, CNP Unavailable Jeana-JdNoreen castro APRN BRUSH HOLDER INSPECTOR Primary Car e Provider Kalyan Galvan Unavailable Unavailable Lashae Trevino [facility] Unavailable [phone] Eduardo Sharma MD Unavailable Rios Monteiro MD Unavailable [phone] Marcelo Artis PA-C Unavailable [phone] Rodrigo Man PA-C Unavailable [phone] Jeana-JdNoreen castro APRN BRUSH HOLDER INSPECTOR Unavailable Sudha Greene NP Primary Care Provider Agatha NullM, Podiatry /Foot and Ankle Surgery Unavailable [facility] Unavailable Encounter Details Date Type Department Care Team (Late st Contact Info) Description 05/21/2013 [facility] Advice [address] [place] [address] Alejo Casas Social History [...] as of this encounter Care Teams Back Hoe Machine Operator Relationship Specialty Start Date End Date Selma Good APRN BRUSH HOLDER INSPECTOR 3305 [facility] [place] [address] PCP - General 04/09/08 04/07/15 Vanda Guerrero MD [address] [place] [address] [place] [address] PCP - General Internal Medicine 04/08/15 01/08/19 Vanda Guerrero MD [address] [place] [address] [place] [address] PCP - Assigned PCP 07/24/16 06/15/18 Noreen Flores APRN BRUSH HOLDER INSPECTOR [facility]5 [facility] [place] [address] PCP - Assigned PCP 06/16/18 08/13/18 Noreen Flores APRN BRUSH HOLDER INSPECTOR [address] [place] [address] [place] [address] PCP - General Nurse Practitioner 01/09/19 12/12/21 Sudha Greene NP [address] [address] PCP - General 11/01/22 Noreen Flores APRN BRUSH HOLDER INSPECTOR [address] [place] [address] [place] [address] Assigned PCP 06/16/18 05/26/22 Kalyan Galvan Personal Advocate & Liaison (PAL) 08/08/19 04/26/21 [facility] [address] [place] [address] [place] [address] Pharmacist Pharmacist 10/14/19 12/01/20 Eduardo Sharma MD [address] [address] Assigned Sleep Provider 04/02/2005/07 [place] [address] [place] [address] 300 [place] [address] Assigned Musculoskeletal Provider 04/02/20 08/24/20 Marcelo Artis PA-C [address] [facility] 300 [place] [address] Assigned Musculoskeletal Provider 08/25/20 08/20/21 Rodrigo Man PA-C [address] [place] [address] Assigned Surgical Provider 08/25/20 11/27/20 Noreen Flores APRN BRUSH HOLDER INSPECTOR 3305 [facility] [place] [address] Assigned PCP 08/05/22 03/16/23 Agatha Null DPM, Podiatry/Foot and Ankle Surgery [address] [place] [place] [address] Assigned Musculoskeletal Provider 11/04/22 Clinic - [facility] [place] 3305 [facility] [place] [address] Assigned PCP 07/05/23 documented as of this encounter
--- OUTSIDE RECORDS SUMMARY | 2023-10-26 11:43 | XMS_ITS | Encounter Summary ---
Author Name Unknown Organization [facility] Address [address] [place] [address] Care Team Providers Care Candle Molder Hand Name Role Phone Vanda Guerrero MD Primary Care Provider [phone] Vanda Guerrero MD Unavailable [phone] Jeana-Noreen Miles APRN ACIDIZER HELPER Unavailable [facility]en Miles APRN ACIDIZER HELPER Unavailable [facility]-JdNoreen castro APRN ACIDIZER HELPER Primary Car e Provider Kalyan Galvan Unavailable Unavailable Lashae Trevino [facility] Unavailable [phone] Eduardo Sharma MD Unavailable Rios Monteiro MD Unavailable Marcelo Artis PA-C Unavailable [phone] Rodrigo ManC Unavailable Jeana-JdNoreen castro APRN ACIDIZER HELPER Unavailable Sudha Greene NP Primary Care Provider Agatha Null DPM, Podiatry /Foot and Ankle Surgery Unavailable [facility] Unavailable Reason for Visit * Reason Onset Date Comments Musculoskeletal Problem 06/13/2016 Travel a dvice Encounter Details Date Type Department Care Team (Latest Contact Info) Description 06/13/2016 MyC Medical Advice [facility] [address] [place] [address] Agatha Null DPM, Podiatry/Foot and Ankle Surgery [address] [place] [address] Musculoskeletal Problem (Travel advice) Social History Tobacco [...] to provider for review. Iain Barone RN MAN documented in this encounter Plan of [...] Total Score: 11 05/02/ 016 7:09 AM HOOKMAN documented as of this encounter Care Teams Candle Molder Hand Relationship Specialty Start Date End Date Vanda Guerrero MD [address] [facility] [place] [address] PCP - General Internal Medicine 04/08/15 01/08/19 Vanda Guerrero MD [address] [facility] [place] [address] PCP - Assigned PCP 07/24/16 06/15/18 Noreen Flores APRN ACIDIZER HELPER [address] [place] [address] [place] [address] PCP - Assigned PCP 06/16/18 08/13/18 Noreen Flores APRN ACIDIZER HELPER [address] [place] [address] [place] [address] PCP - General Nurse Practitioner 01/09/19 12/12/21 Sudha Greene, MAURICIO [address] [address] PCP - General 11/01/22 Noreen Flores APRN ACIDIZER HELPER [address] [place] [address] [place] [address] Assigned PCP 06/16/18 05/26/22 Kalyan Galvan Personal Advocate & Liaison (PAL) 08/08/19 04/26/21 Lashae Trevino, [facility] [address] [facility] [place] [address] Pharmacist Pharmacist 10/14/19 12/01/20 Eduardo Sharma MD [address] [facility] 103 [place] [address] Assigned Sleep Provider 04/02/2005/07 [place] [address] [facility] 300 [place] [address] Assigned Musculoskeletal Provider 04/02/20 08/24/20 ChandraMarcelo PA-C [address] [facility] 300 [place] [address] Assigned Musculoskeletal Provider 08/25/20 08/20/21 Rodrigo Man PA-C [address] [facility] [address] [place] [address] Assigned Surgical Provider 08/25/20 11/27/20 Noreen Flores APRN ACIDIZER HELPER [address] [facility] [place] [id number] Assigned PCP 08/05/22 03/16/23 Agatha Null DPM, Podiatry/Foot and Ankle Surgery [address] [facility] [address] [place] [address] Assigned Musculoskeletal Provider 11/04/22 [facility] [place] [facility] [address] [facility] [place] [id number] Assigned PCP 07/05/23 documented as of this encounter
--- OUTSIDE RECORDS SUMMARY | 2023-10-26 11:43 | XMS_ITS | Encounter Summary ---
Author Name Unknown Organization [facility] Address [address] [place] [address] Care Team Providers Care Creasing And Cutting Press Feeder Name Role Phone Vanda Guerrero MD Primary Care Provider [phone] Vanda Guerrero MD Unavailable [phone] Jeana-Noreen Miles APRN BUS CLEANER Unavailable [facility]-Noreen Miles APRN BUS CLEANER Unavailable [facility]-JdNoreen castro APRN BUS CLEANER Primary Car e Provider Kalyan Galvan Unavailable Unavailable Lashae Trevino [facility] Unavailable Eduardo Sharma MD Unavailable Rios Monteiro MD Unavailable Marcelo Artis PA-C Unavailable Rodrigo ManC Unavailable Jeana-JdNoreen castro APRN BUS CLEANER Unavailable Sudha Greene NP Primary Care Provider Agatha Null DPM, Podiatry /Foot and Ankle Surgery Unavailable [facility] Unavailable Reason for Visit * Reason Onset Date Comments Derm Problem 01/20/2016 Encounter Details Date Type Department Care Team (Late st Contact Info) Description 01/20/2016 [facility] [address] [place] [address] [place] [address] Vanda Guerrero MD [address] [place] [address] [place] [address] Derm Problem Social History Tobacco Use Types [...] documented as of this encounter Care Teams Creasing And Cutting Press Feeder Relationship Specialty Start Date End Date Vanda Guerrero MD [address] [place] [address] [place] [address] PCP - General Internal Medicine 04/08/15 01/08/19 Vanda Guerrero MD [address] [place] [address] [place] [address] PCP - Assigned PCP 07/24/16 06/15/18 Noreen Flores APRN BUS CLEANER [address] [place] [address] [place] [address] PCP - Assigned PCP 06/16/18 08/13/18 Noreen Flores APRN BUS CLEANER [facility] [place] [address] PCP - General Nurse Practitioner 01/09/19 12/12/21 Sudha Greene NP [address] [address] PCP - General 11/01/22 Noreen Flores APRN BUS CLEANER 3305 [facility] [place] [address] Assigned PCP 06/16/18 05/26/22 Kalyan Galvan Personal Advocate & Liaison (PAL) 08/08/19 04/26/21 Lashae Trevino, [facility] [address] [place] [address] [place] [address] Pharmacist Pharmacist 10/14/19 12/01/20 Eduardo Sharma MD [address] [place] [address] [place] 515055 Assigned Sleep Provider 04/02/2005/07 [place] [address] [facility] 300 [place] [address] Assigned Musculoskeletal Provider 04/02/20 08/24/20 Marcelo Artis PA-C [address] [facility] [place] 300 [place] [address] Assigned Musculoskeletal Provider 08/25/20 08/20/21 Rodrigo Man PA-C [address] [place] [address] [place] [address] Assigned Surgical Provider 08/25/20 11/27/20 Noreen Flroes APRN BUS CLEANER 3305 [facility] [place] [address] Assigned PCP 08/05/22 03/16/23 Agatha Null DPM, Podiatry/Foot and Ankle Surgery [address] [place] [address] Assigned Musculoskeletal Provider 11/04/22 [facility] [place] [facility] [address] [facility] [place] [address] Assigned PCP 07/05/23 documented as of this encounter
--- OUTSIDE RECORDS SUMMARY | 2023-10-26 11:43 | XMS_ITS | Encounter Summary ---
Author Name Unknown Organization [facility] Address [address] [place] [address] Care Team Providers Care Electronic Engineering Technician Name Role Phone Selma Good APRN HORSE GROOMER Primary Care Pro vider Vanda Guerrero MD Primary Care Provider [phone] Vanda Guerrero MD Unavailable [phone] Jeana-JdNoreen castro APRN, CNP Unavailable Jeana-JdNoreen castro APRN, CNP Unavailable Jeana-JdNoreen castro APRN HORSE GROOMER Primary Car e Provider Kalyan Galvan Unavailable Unavailable Lashae Trevino [facility] Unavailable [phone] Eduardo Sharma MD Unavailable Rios Monteiro MD Unavailable [phone] Marcelo Artis PA-C Unavailable [phone] Rodrigo Man PA-C Unavailable [phone] Jeana-JdNoreen castro APRN HORSE GROOMER Unavailable Sudha Greene NP Primary Care Provider Agatha NullM, Podiatry /Foot and Ankle Surgery Unavailable [facility] Unavailable Encounter Details Date Type Department Care Team (Late st Contact Info) Description 12/05/2012 [facility] Medical Advice [address] [place] [address] Alejo Casas Social History [...] as of this encounter Care Teams Electronic Engineering Technician Relationship Specialty Start Date End Date Selma Good APRN HORSE GROOMER [address] [facility] [place] [address] PCP - General 04/09/08 04/07/15 Vanda Guerrero MD [address] [place] [address] [place] [address] PCP - General Internal Medicine 04/08/15 01/08/19 Vanda Guerrero MD [address] [place] [address] [place] [address] PCP - Assigned PCP 07/24/16 06/15/18 Noreen Flores APRN HORSE GROOMER [facility]5 [facility] [place] [address] PCP - Assigned PCP 06/16/18 08/13/18 Noreen Flores APRN HORSE GROOMER [address] [place] [address] [place] [address] PCP - General Nurse Practitioner 01/09/19 12/12/21 Sudha Greene NP [address] [address] PCP - General 11/01/22 Noreen Flores APRN HORSE GROOMER [address] [place] [address] [place] [address] Assigned PCP 06/16/18 05/26/22 Kalyan Galvan Personal Advocate & Liaison (PAL) 08/08/19 04/26/21 [facility] [address] [place] [address] [place] [address] Pharmacist Pharmacist 10/14/19 12/01/20 Eduardo Sharma MD [address] [address] Assigned Sleep Provider 04/02/2005/07 [place] [address] [place] [address] 300 [place] [address] Assigned Musculoskeletal Provider 04/02/20 08/24/20 Marcelo Artis PA-C [address] [facility] 300 [place] [address] Assigned Musculoskeletal Provider 08/25/20 08/20/21 Rodrigo Man PA-C [address] [place] [address] [place] [address] Assigned Surgical Provider 08/25/20 11/27/20 Noreen Flores APRN HORSE GROOMER 3305 [facility] [place] [address] Assigned PCP 08/05/22 03/16/23 Agatha Null DPM, Podiatry/Foot and Ankle Surgery [address] [place] [address] [place] 877647 Assigned Musculoskeletal Provider 11/04/22 [facility] - [facility] 3[address] [facility] [place] [address] Assigned PCP 07/05/23 documented as of this encounter
--- OUTSIDE RECORDS SUMMARY | 2023-10-26 11:43 | XMS_ITS | Encounter Summary ---
Author Name Unknown Organization [facility] Address [address] [place] [address] Care Team Providers Care Case Managers Name Role Phone Vanda Guerrero MD Primary Care Provider [phone] Vanda Guerrero MD Unavailable [phone] Jeana-Noreen Miles APRN HELMET HAT BRIM CUTTER Unavailable Jeana-Noreen Miles APRN HELMET HAT BRIM CUTTER Unavailable Jeana-JdNoreen castro APRN HELMET HAT BRIM CUTTER Primary Car e Provider Kalyan Galvan Unavailable Unavailable Lashae Trevino [facility] Unavailable Eduardo Sharma MD Unavailable Rios Monteiro MD Unavailable Marcelo Artis PA-C Unavailable Rodrigo Man PA-C Unavailable Jeana-Noreen Miles APRN HELMET HAT BRIM CUTTER Unavailable Sudha Greene NP Primary Care Provider [phone] Agatha Null DPM, Podiatry /Foot and Ankle Surgery Unavailable [facility] Unavailable Encounter Details Date Type Department Care Team (Late st Contact Info) Description 02/11/[address] [place] [phone] Vanda Guerrero MD [address] [place] [address] [place] [address] Social History Tobacco Use Types Packs/Day Years [...] as of this encounter Care Teams Case Managers Relationship Specialty Start Date End Date Vanda Guerrero MD [address] [place] [address] [place] [address] PCP - General Internal Medicine 04/08/15 01/08/19 Vanda Guerrero MD [address] [place] [address] [place] [address] PCP - Assigned PCP 07/24/16 06/15/18 Noreen Flores APRN HELMET HAT BRIM CUTTER [address] [place] [address] [place] [address] PCP - Assigned PCP 06/16/18 08/13/18 Noreen Flores APRN HELMET HAT BRIM CUTTER [address] [place] [address] [place] [address] PCP - General Nurse Practitioner 01/09/19 12/12/21 Sudha Greene NP [facility] [address] [place] [address] PCP - General 11/01/22 Noreen Flores APRN HELMET HAT BRIM CUTTER [address] [place] [address] [place] [address] Assigned PCP 06/16/18 05/26/22 Kalyan Galvan Personal Advocate & Liaison (PAL) 08/08/19 04/26/21 Lashae Trevino, [facility] [address] [place] [address] [place] [address] Pharmacist Pharmacist 10/14/19 12/01/20 Eduardo Sharma MD [address] [place] [address] [place] [address] Assigned Sleep Provider 04/02/2005/07 [place] [address] [facility] [place] 300 [place] [address] Assigned Musculoskeletal Provider 04/02/20 08/24/20 Marcelo Artis PA-C [address] [place] [address] [place] [address] Assigned Musculoskeletal Provider 08/25/20 08/20/21 Rodrigo Man PA-C [address] [place] [address] [place] [address] Assigned Surgical Provider 08/25/20 11/27/20 Noreen Flores APRN HELMET HAT BRIM CUTTER 3305 [facility] [place] [address] Assigned PCP 08/05/22 03/16/23 Agatha Null DPM, Podiatry/Foot and Ankle Surgery [address] [place] [address] Assigned Musculoskeletal Provider 11/04/22 [facility] - [facility] [place] [facility] 3305 [facility] [place] [id number] Assigned PCP 07/05/23 documented as of this encounter
--- OUTSIDE RECORDS SUMMARY | 2023-10-26 11:43 | XMS_ITS | Encounter Summary ---
Author Name Unknown Organization [facility] Address [address] [place] [address] Care Team Providers Care Lithographic Plate Maker Name Role Phone Selma Good APRN MASTER BLACK BELT Primary Care Pro vider Vanda Guerrero MD Primary Care Provider [phone] Vanda Guerrero MD Unavailable [phone] Jeana-JdNoreen castro APRN, CNP Unavailable Jeana-JdNoreen castro APRN, CNP Unavailable Jeana-JdNoreen castro APRN MASTER BLACK BELT Primary Car e Provider Kalyan Galvan Unavailable Unavailable Lashae Trevino [facility] Unavailable [phone] Eduardo Sharma MD Unavailable Rios Monteiro MD Unavailable [phone] Marcelo Artis-Aleyda Unavailable [phone] Rodrigo Man-C Unavailable [phone] Jeana-JdNoreen castro APRN MASTER BLACK BELT Unavailable Sudha Greene NP Primary Care Provider Agatha NullM, Podiatry /Foot and Ankle Surgery Unavailable [facility] Unavailable Reason for Visit * Reason Onset Date Comments Medication Question 10/06/2014 lisinopril Refill Request 10/06/2014 OT lancets and s trips Encounter Details Date Type Department Care Team (Late st Contact Info) Description 10/06/2014 MyC Medical Advice [facility] 1440 [facility] [place] [phone] Selma Good, SVP [employer] [address] [place] [address] Medication Question (lisinopril); Refill R... Social History [...] PM CDT Appointment today with Kenyon GUEVARA, MINIATURE SET DESIGNER: 5. Hypertension goal BP (blood pressure) < [...] documented as of this encounter Care Teams Lithographic Plate Maker Relationship Specialty Start Date End Date Selma Good APRN MASTER BLACK BELT [facility] [place] [address] PCP - General 04/09/08 04/07/15 Vanda Guerrero MD [address] [place] [address] [place] [address] PCP - General Internal Medicine 04/08/15 01/08/19 Vanda Guerrero MD [address] [place] [address] [place] [address] PCP - Assigned PCP 07/24/16 06/15/18 Noreen Flores APRN MASTER BLACK BELT [address] [place] [address] [place] [address] PCP - Assigned PCP 06/16/18 08/13/18 Noreen Flores APRN MASTER BLACK BELT [address] [place] [address] [place] [address] PCP - General Nurse Practitioner 01/09/19 12/12/21 Sudha Grenee NP [address] [address] PCP - General 11/01/22 Noreen Flores APRN MASTER BLACK BELT 3[address] [facility] [place] [address] Assigned PCP 06/16/18 05/26/22 Kalyan Galvan Personal Advocate & Liaison (PAL) 08/08/19 04/26/21 [facility] [address] [place] [address] [place] [address] Pharmacist Pharmacist 10/14/19 12/01/20 Eduardo Sharma MD [address] [place] [address] [place] [address] Assigned Sleep Provider 04/02/2005/07 [place] [address] [place] [address] [place] [address] Assigned Musculoskeletal Provider 04/02/20 08/24/20 Marcelo Artis PA-C [address] [place] [address] [place] [address] Assigned Musculoskeletal Provider 08/25/20 08/20/21 Rodrigo Man PA-C [address] [place] [address] [place] [address] Assigned Surgical Provider 08/25/20 11/27/20 Noreen Flores APRN MASTER BLACK BELT [facility] [place] [address] Assigned PCP 08/05/22 03/16/23 Agatha Null DPM, Podiatry/Foot and Ankle Surgery [address] [place] [address] Assigned Musculoskeletal Provider 11/04/22 [facility] [place] [address] [place] [address] Assigned PCP 07/05/23 documented as of this encounter
--- OUTSIDE RECORDS SUMMARY | 2023-10-26 11:43 | XMS_ITS | Encounter Summary ---
Author Name Unknown Organization [facility] Address [address] [place] [address] Care Team Providers Care Physiological Chemist Name Role Phone Vanda Guerrero MD Primary Care Provider [phone] Vanda Guerrero MD Unavailable [phone] Jeana-Noreen Miles APRN COMPOSING ROOM MACHINIST Unavailable [facility] APRN COMPOSING ROOM MACHINIST Unavailable [facility]-JdNoreen castro APRN COMPOSING ROOM MACHINIST Primary Car e Provider Kalyan Galvan Unavailable Unavailable Lashae Trevino [facility] Unavailable Eduardo Sharma MD Unavailable Rios Monteiro MD Unavailable Marcelo Artis PA-C Unavailable Rodrigo ManC Unavailable [phone] Jeana-JdNoreen castro APRN COMPOSING ROOM MACHINIST Unavailable Sudha Greene NP Primary Care Provider Agatha Null DPM, Podiatry /Foot and Ankle Surgery Unavailable [facility] Unavailable Reason for Visit * Reason Onset Date Comments Clarification 05/19/2016 Encounter Details Date Type Department Care Team (Late st Contact Info) Description 05/19/2016 MyC Medical Advice [facility] [address] [place] [address] Agatha Null, DPM, Podiatry/Foot and Ankle Surgery [address] [place] [address] Clarification Social History Tobacco Use Types Packs/Day [...] Total Score: 11 05/02/ 016 7:09 AM HOP TRAINER documented as of this encounter Care Teams Physiological Chemist Relationship Specialty Start Date End Date Vanda Guerrero MD [address] [place] [address] [place] [address] PCP - General Internal Medicine 04/08/15 01/08/19 Vanda Guerrero MD [address] [place] [address] [place] [address] PCP - Assigned PCP 07/24/16 06/15/18 Noreen Flores APRN CNP [address] [place] [address] [place] [address] PCP - Assigned PCP 06/16/18 08/13/18 Noreen Flores APRN COMPOSING ROOM MACHINIST 3305 [facility] [place] [address] PCP - General Nurse Practitioner 01/09/19 12/12/21 Sudha Greene NP [address] [address] PCP - General 11/01/22 Noreen Flores APRN COMPOSING ROOM MACHINIST [address] [place] [address] [place] [address] Assigned PCP 06/16/18 05/26/22 Kalyan Galvan Personal Advocate & Liaison (PAL) 08/08/19 04/26/21 [facility] [address] [place] [address] [place] [address] Pharmacist Pharmacist 10/14/19 12/01/20 Eduardo Sharma MD [address] [place] [address] [place] [address] Assigned Sleep Provider 04/02/2005/07 [place] [address] [facility] [place] 300 [place] [address] Assigned Musculoskeletal Provider 04/02/20 08/24/20 Marcelo Artis PA-C 244[address] [facility] [place] 300 [place] [address] Assigned Musculoskeletal Provider 08/25/20 08/20/21 Rodrigo Man PA-C [address] [place] [address] [place] [address] Assigned Surgical Provider 08/25/20 11/27/20 Noreen Flores APRN COMPOSING ROOM MACHINIST 3305 [facility] [place] [address] Assigned PCP 08/05/22 03/16/23 Agatha Null DPM, Podiatry/Foot and Ankle Surgery [address] [place] [address] [place] [address] Assigned Musculoskeletal Provider 11/04/22 [facility] [place] [facility] [address] [facility] [address] [place] [address] Assigned PCP 07/05/23 documented as of this encounter
--- OUTSIDE RECORDS SUMMARY | 2023-10-26 11:43 | XMS_ITS | Encounter Summary ---
Author Name Unknown Organization [place] Address [address] [place] [address] Care Team Providers Care Laboratory Machinist Name Role Phone Vanda Guerrero MD Primary Care Provider [phone] Vanda Guerrero MD Unavailable [phone] Jeana-Noreen Miles APRN REAMING MACHINE OPERATOR Unavailable [facility] Miles APRN REAMING MACHINE OPERATOR Unavailable [facility]-JdNoreen castro APRN REAMING MACHINE OPERATOR Primary Car e Provider Kalyan Galvan Unavailable Unavailable Lashae Trevino [facility] Unavailable Eduardo Sharma MD Unavailable Rios Monteiro MD Unavailable [phone] Marcelo Artis PA-C Unavailable Rodrigo Man PA-C Unavailable [phone] Jeana-JdNoreen castro APRN REAMING MACHINE OPERATOR Unavailable Sudha Greene NP Primary Care Provider Agatha Null DPM, Podiatry /Foot and Ankle Surgery Unavailable [facility] [facility] Unavailable Reason for Visit * Reason Onset Date Comments Appointment 11/30/2016 reminder Encounter Details Date Type Department Care Team (Late st Contact Info) Description 11/30/[address] [facility] [place] [address] [place] [phone] Kallie Celaya, RN Appointment (reminder) Social History [...] as of this encounter Care Teams Laboratory Machinist Relationship Specialty Start Date End Date Vanda Guerrero MD [address] [place] [address] [place] [address] PCP - General Internal Medicine 04/08/15 01/08/19 Vanda Guerrero MD [address] [place] [address] [place] [address] PCP - Assigned PCP 07/24/16 06/15/18 Noreen Flores APRN REAMING MACHINE OPERATOR [address] [place] [address] [place] [address] PCP - Assigned PCP 06/16/18 08/13/18 Noreen Flores APRN REAMING MACHINE OPERATOR [address] [place] [address] [place] [address] PCP - General Nurse Practitioner 01/09/19 12/12/21 Sudha Greene, MAURICIO [address] [address] PCP - General 11/01/22 Noreen Flores APRN REAMING MACHINE OPERATOR 3305 [facility] [place] [address] Assigned PCP 06/16/18 05/26/22 Kalyan Galvan Personal Advocate & Liaison (PAL) 08/08/19 04/26/21 Lashae Trevino, [facility] [place] [address] Pharmacist Pharmacist 10/14/19 12/01/20 Eduardo Sharma MD [address] [place] [address] [place] [id number] Assigned Sleep Provider 04/02/2005/07 [place] [address] [place] [address] [place] [address] Assigned Musculoskeletal Provider 04/02/20 08/24/20 Marcelo Artis PA-C [address] [place] [address] [place] [address] Assigned Musculoskeletal Provider 08/25/20 08/20/21 Rodrigo Man PA-C [address] [place] [address] [place] [address] Assigned Surgical Provider 08/25/20 11/27/20 Noreen Flores APRN REAMING MACHINE OPERATOR 3305 [facility] [place] [address] Assigned PCP 08/05/22 03/16/23 Agatha Null DPM, Podiatry/Foot and Ankle Surgery [address] [place] [address] Assigned Musculoskeletal Provider 11/04/22 [facility] - [facility] [place] [facility] 3305 [facility] [place] [id number] Assigned PCP 07/05/23 documented as of this encounter
--- OUTSIDE RECORDS SUMMARY | 2023-10-26 11:43 | XMS_ITS | Encounter Summary ---
Author Name Unknown Organization [facility] Address [address] [place] [address] Care Team Providers Care Dam Attendant Name Role Phone Selma Good APRN BAILER OPERATORS SUPERVISOR Primary Care Pro vider Vanda Guerrero MD Primary Care Provider [phone] Vanda Guerrero MD Unavailable [phone] Jeana-JdNoreen castro APRN, CNP Unavailable Jeana-JdNoreen castro APRN, CNP Unavailable Jeana-JdNoreen castro APRN BAILER OPERATORS SUPERVISOR Primary Car e Provider Kalyan Galvan Unavailable Unavailable Lashae Trevino [facility] Unavailable [phone] Eduardo Sharma MD Unavailable Rios Monteiro MD Unavailable [phone] Marcelo Artis-Aleyda Unavailable [phone] Rodrigo Man-C Unavailable [phone] Jeana-JdNoreen castro APRN BAILER OPERATORS SUPERVISOR Unavailable Sudha Greene NP Primary Care Provider [phone] Agatha NullM, Podiatry /Foot and Ankle Surgery Unavailable [facility] Unavailable Reason for Visit * Reason Onset Date Comments Medication Dosage Adjustment 08/18/2013 dec gavine Metformin Encounter Details Date Type Department Care Team (Late st Contact Info) Description 08/18/2013 [facility] [address] [place] [address] [place] [phone] Selma Good APRN BAILER OPERATORS SUPERVISOR [address] [facility] [place] [address] Medication Dosage Adjustment (decrease Met... Social History [...] RN - 08/18/2013 2:08 PM CDT See Voip[employer] message below. I updated the medication list [...] documented as of this encounter Care Teams Dam Attendant Relationship Specialty Start Date End Date Selma Good APRN BAILER OPERATORS SUPERVISOR [facility] [place] [address] PCP - General 04/09/08 04/07/15 Vanda Guerrero MD [address] [place] [address] [place] [address] PCP - General Internal Medicine 04/08/15 01/08/19 Vanda Guerrero MD [address] [place] [address] [place] [address] PCP - Assigned PCP 07/24/16 06/15/18 Noreen Flores APRN BAILER OPERATORS SUPERVISOR [address] [place] [address] [place] [address] PCP - Assigned PCP 06/16/18 08/13/18 Noreen Flores APRN BAILER OPERATORS SUPERVISOR [address] [place] [address] [place] [address] PCP - General Nurse Practitioner 01/09/19 12/12/21 Sudha Greene, MAURICIO [address] [address] PCP - General 11/01/22 Noreen Flores, SEAN BAILER OPERATORS SUPERVISOR [address] [place] [address] [place] [address] Assigned PCP 06/16/18 05/26/22 Kalyan Galvan Personal Advocate & Liaison (PAL) 08/08/19 04/26/21 Lashae Trevino [facility] [address] [place] [address] Pharmacist Pharmacist 10/14/19 12/01/20 Eduardo Sharma MD [address] [place] [address] [place] [address] Assigned Sleep Provider 04/02/2005/07 Rios Monteiro MD [address] [place] [address] Assigned Musculoskeletal Provider 04/02/20 08/24/20 Marcelo Artis PA-C [address] [place] [address] Assigned Musculoskeletal Provider 08/25/20 08/20/21 Rodrigo Man PA-C [address] [facility] [address] [place] [address] Assigned Surgical Provider 08/25/20 11/27/20 Noreen Flores APRN BAILER OPERATORS SUPERVISOR [address] [place] [address] [place] [address] Assigned PCP 08/05/22 03/16/23 Agatha Null DPM, Podiatry/Foot and Ankle Surgery [address] [place] [address] 300 [place] [address] Assigned Musculoskeletal Provider 11/04/22 Clinic - [facility] [address] [place] [address] [place] [address] Assigned PCP 07/05/23 documented as of this encounter
--- OUTSIDE RECORDS SUMMARY | 2023-10-26 11:43 | XMS_ITS | Encounter Summary ---
Author Name Unknown Organization [place] Address [address] [place] [address] Care Team Providers Care Correspondence Dictator Name Role Phone Vanda Guerrero MD Primary Care Provider [phone] Vanda Guerrero MD Unavailable [phone] Jeana-Noreen Miles APRN CLASS A LINEMAN Unavailable [facility] Miles APRN CLASS A LINEMAN Unavailable [facility]-JdNoreen castro APRN CLASS A LINEMAN Primary Car e Provider Kalyan Galvan Unavailable Unavailable Lashae Trevino [facility] Unavailable [phone] Eduardo Sharma MD Unavailable Rios Monteiro MD Unavailable Marcelo Artis PA-C Unavailable [phone] Rodrigo ManC Unavailable Jeana-Noreen Miles APRN CLASS A LINEMAN Unavailable Sudha Greene NP Primary Care Provider Agatha Null DPM, Podiatry /Foot and Ankle Surgery Unavailable [facility] [facility] Unavailable Reason for Visit * Reason Onset Date Comments Refill Request 08/30/2016 Metformin 500mg tab Encounter Details Date Type Department Care Team (Late st Contact Info) Description 08/30/2016 Refill [facility] [place] [address] [place] [address] Vanda Guerrero MD [address] [facility] [place] [address] Refill Request (Metformin 500mg tab) Social History [...] Last Office Visit with G, P or [facility] prescribing provider: 06/01/16 BP Readings from [...] Total Score: 11 05/02/ 016 7:09 AM PACKAGING SALES CONSULTANT documented as of this encounter Care Teams Correspondence Dictator Relationship Specialty Start Date End Date Vanda Guerrero MD [address] [place] [address] [place] [address] PCP - General Internal Medicine 04/08/15 01/08/19 Vanda Guerrero MD [address] [place] [address] [place] [address] PCP - Assigned PCP 07/24/16 06/15/18 Noreen Flores, SEAN CLASS A LINEMAN [address] [place] [address] [place] [address] PCP - Assigned PCP 06/16/18 08/13/18 Noreen Flores APRN CLASS A LINEMAN [address] [place] [address] [place] [address] PCP - General Nurse Practitioner 01/09/19 12/12/21 Sudha Greene, MAURICIO [address] [address] PCP - General 11/01/22 Noeren Flores APRN CLASS A LINEMAN [address] [place] [address] [place] [address] Assigned PCP 06/16/18 05/26/22 Kalyan Galvan Personal Advocate & Liaison (PAL) 08/08/19 04/26/21 Lashae Trevino [facility] [address] [id number] Pharmacist Pharmacist 10/14/19 12/01/20 Eduardo Sharma MD [address] [place] [address] Assigned Sleep Provider 04/02/2005/07 [place] [address] 728767 Assigned Musculoskeletal Provider 04/02/20 08/24/20 Marcelo Artis PA-C [address] [address] Assigned Musculoskeletal Provider 08/25/20 08/20/21 Rodrigo Man PA-C [address] [address] Assigned Surgical Provider 08/25/20 11/27/20 Noreen Flores APRN CLASS A LINEMAN [address] [place] [address] [place] [address] Assigned PCP 08/05/22 03/16/23 Agatha Null DPM, Podiatry/Foot and Ankle Surgery [id number] [place] [address] [facility] [address] [place] [address] Assigned Musculoskeletal Provider 11/04/22 Clinic - [facility] [address] [place] [address] [place] [address] Assigned PCP 07/05/23 documented as of this encounter
--- OUTSIDE RECORDS SUMMARY | 2023-10-26 11:43 | XMS_ITS | Encounter Summary ---
Author Name Unknown Organization [place] Address [address] [place] [address] Care Team Providers Care Railroad Wheels And Axle Inspector Name Role Phone Selma Good APRN PRIMARY OPERATOR Primary Care Pro vider Vanda Guerrero MD Primary Care Provider [phone] Vanda Guerrero MD Unavailable [phone] Jeana-JdNoreen castro APRN, CNP Unavailable Jeana-JdNoreen castro APRN, CNP Unavailable Jeana-JdNoreen castro APRN PRIMARY OPERATOR Primary Car e Provider Kalyan Galvan Unavailable Unavailable Lashae Trevino [facility] Unavailable [phone] Eduardo Sharma MD Unavailable Rios Monteiro MD Unavailable [phone] Marcelo Artis-Aleyda Unavailable [phone] Rodrigo Man-C Unavailable [phone] Jeana-JdNoreen castro APRN PRIMARY OPERATOR Unavailable Sudha Greene NP Primary Care Provider Agatha NullM, Podiatry /Foot and Ankle Surgery Unavailable [facility] Unavailable Reason for Visit * Reason Onset Date Comments Medication Problem 06/22/2014 amitriptline side effects Encounter Details Date Type Department Care Team (Late st Contact Info) Description 06/22/2014 [facility] [address] [place] [address] [place] [address] Selma Good, DENIER CONTROL OPERATOR PRIMARY OPERATOR [address] [facility] [place] [address] Medication Problem (amitriptline side effe... Social History [...] Start Date End Date Selma Good, SEAN PRIMARY OPERATOR [address] [place] [address] [place] [address] PCP - General 04/09/08 04/07/15 Vanda Guerrero MD [address] [place] [address] [place] [address] PCP - General Internal Medicine 04/08/15 01/08/19 Vanda Guerrero MD [address] [place] [address] [place] [address] PCP - Assigned PCP 07/24/16 06/15/18 Noreen Flores APRN PRIMARY OPERATOR [address] [facility] [place] [address] PCP - Assigned PCP 06/16/18 08/13/18 Noreen Flores APRN PRIMARY OPERATOR [address] [facility] [place] [address] PCP - General Nurse Practitioner 01/09/19 12/12/21 Sudha Greene, MAURICIO [address] [address] PCP - General 11/01/22 Noreen Flores APRN PRIMARY OPERATOR [address] [place] [address] [place] [address] Assigned PCP 06/16/18 05/26/22 Kalyan Galvan Personal Advocate & Liaison (PAL) 08/08/19 04/26/21 Lashae Trevino, [facility] 1440 [facility] [place] [address] Pharmacist Pharmacist 10/14/19 12/01/20 Eduardo Sharma MD 6363 [facility] 103 [place] [address] Assigned Sleep Provider 04/02/2005/07 [place] [address] [facility] 300 [place] [address] Assigned Musculoskeletal Provider 04/02/20 08/24/20 Marcelo Artis PA-C 136[address] [facility] [address] [place] [address] Assigned Musculoskeletal Provider 08/25/20 08/20/21 Rodrigo Man PA-C [address] [facility] [address] [place] [address] Assigned Surgical Provider 08/25/20 11/27/20 Noreen Flores APRN PRIMARY OPERATOR [address] [facility] [place] [id number] Assigned PCP 08/05/22 03/16/23 Agatha Null DPM, Podiatry/Foot and Ankle Surgery [address] [facility] [address] [place] [address] Assigned Musculoskeletal Provider 11/04/22 Clinic - [facility] 3305 [facility] [place] [id number] Assigned PCP 07/05/23 documented as of this encounter
--- OUTSIDE RECORDS SUMMARY | 2023-10-26 11:43 | XMS_ITS | Encounter Summary ---
Author Name Unknown Organization [place] Address [address] [place] [address] Care Team Providers Care Washing Machine Operator Name Role Phone Selma Good APRN GRADUATE FELLOW Primary Care Pro vider Vanda Guerrero MD Primary Care Provider [phone] Vanda Guerrero MD Unavailable [phone] Jeana-JdNoreen castro APRN, CNP Unavailable Jeana-JdNoreen castro APRN, CNP Unavailable Jeana-JdNoreen castro APRN GRADUATE FELLOW Primary Car e Provider Kalyan Galvan Unavailable Unavailable Lashae Trevino [facility] Unavailable [phone] Eduardo Sharma MD Unavailable Rios Monteiro MD Unavailable [phone] Marcelo Artis PA-C Unavailable [phone] Rodrigo Man PA-C Unavailable [phone] Jeana-JdNoreen castro APRN GRADUATE FELLOW Unavailable Sudha Greene NP Primary Care Provider Agatha NullM, Podiatry /Foot and Ankle Surgery Unavailable [facility] Unavailable Encounter Details Date Type Department Care Team (Late st Contact Info) Description 09/24/2014 [facility] Medical Advice [address] [place] [address] Shante Joya, RN [...] documented as of this encounter Care Teams Washing Machine Operator Relationship Specialty Start Date End Date Selma Good APRN GRADUATE FELLOW [address]305 [facility] [place] [address] PCP - General 04/09/08 04/07/15 Vanda Guerrero MD [address] [facility] [place] [address] PCP - General Internal Medicine 04/08/15 01/08/19 Vanda Guerrero MD [facility]5 [facility] [place] [address] PCP - Assigned PCP 07/24/16 06/15/18 Noreen Flores APRN GRADUATE FELLOW [address] [facility] [place] [address] PCP - Assigned PCP 06/16/18 08/13/18 Noreen Flores APRN GRADUATE FELLOW [address] [place] [address] [place] [address] PCP - General Nurse Practitioner 01/09/19 12/12/21 Sudha Greene NP [address] [address] PCP - General 11/01/22 Noreen Flores APRN GRADUATE FELLOW [address] [place] [address] [place] [address] Assigned PCP 06/16/18 05/26/22 Kalyan Galvan Personal Advocate & Liaison (PAL) 08/08/19 04/26/21 Lashae Trevino [facility] [address] [place] [address] [place] [address] Pharmacist Pharmacist 10/14/19 12/01/20 Eduardo Sharma MD [address] [address] Assigned Sleep Provider 04/02/2005/07 [place] [address] [place] [address] Assigned Musculoskeletal Provider 04/02/20 08/24/20 Marcelo Artis PA-C [address] [address] Assigned Musculoskeletal Provider 08/25/20 08/20/21 Rodrigo Man PA-C [address] [place] [address] Assigned Surgical Provider 08/25/20 11/27/20 Noreen Flores APRN GRADUATE FELLOW 3305 [facility] [place] [address] Assigned PCP 08/05/22 03/16/23 Agatha Null DPM, Podiatry/Foot and Ankle Surgery [address] [place] [address] [place] [address] Assigned Musculoskeletal Provider 11/04/22 Clinic - [facility] [place] 3305 [facility] [place] [address] Assigned PCP 07/05/23 documented as of this encounter
--- OUTSIDE RECORDS SUMMARY | 2023-10-26 11:43 | XMS_ITS | Encounter Summary ---
Author Name Unknown Organization [place] Address [address] [place] [address] Care Team Providers Care Energy Economist Name Role Phone Selma Good APRN AND DRYING SUPERVISOR COOKING CASING Primary Care Pro vider Vanda Guerrero MD Primary Care Provider [phone] Vanda Guerrero MD Unavailable [phone] Jeana-JdNoreen castro APRN, CNP Unavailable Jeana-JdNoreen castro APRN, CNP Unavailable Jeana-JdNoreen castro APRN AND DRYING SUPERVISOR COOKING CASING Primary Car e Provider Kalyan Galvan Unavailable Unavailable Lashae Trevino [facility] Unavailable [phone] Eduardo Sharma MD Unavailable Rios Monteiro MD Unavailable [phone] Marcelo Artis-Aleyda Unavailable [phone] Rodrigo Man-C Unavailable [phone] Jeana-JdNoreen castro APRN AND DRYING SUPERVISOR COOKING CASING Unavailable Sudha Greene NP Primary Care Provider [phone] Agatha NullM, Podiatry /Foot and Ankle Surgery Unavailable [facility] Unavailable Reason for Visit * Reason Onset Date Comments Foot Problems 03/19/2014 numb Encounter Details Date Type Department Care Team (Late st Contact Info) Description 03/19/2014 [facility] [address] [place] [address] [place] [address] Selma Good APRN AND DRYING SUPERVISOR COOKING CASING [address] [facility] [place] [address] Foot Problems (numb) Social History Tobacco Use [...] as of this encounter Care Teams Energy Economist Relationship Specialty Start Date End Date Selma Good APRN AND DRYING SUPERVISOR COOKING CASING [address] [place] [place] [address] [place] [address] PCP - General 04/09/08 04/07/15 Vanda Guerrero MD [address] [place] [address] [place] [address] PCP - General Internal Medicine 04/08/15 01/08/19 Vanda Guerrero MD [address] [place] [place] [address] [place] [address] PCP - Assigned PCP 07/24/16 06/15/18 Noreen Flores APRN AND DRYING SUPERVISOR COOKING CASING [address] [place] [place] [address] [place] [address] PCP - Assigned PCP 06/16/18 08/13/18 Noreen Flores APRN AND DRYING SUPERVISOR COOKING CASING [address] [place] [place] [address] [place] [address] PCP - General Nurse Practitioner 01/09/19 12/12/21 Sudha Greene NP [address] [address] PCP - General 11/01/22 Noreen Flores APRN AND DRYING SUPERVISOR COOKING CASING [address] [place] [place] [address] [place] [address] Assigned PCP 06/16/18 05/26/22 Kalyan Galvan Personal Advocate & Liaison (PAL) 08/08/19 04/26/21 [facility] [address] [place] [address] [place] [address] Pharmacist Pharmacist 10/14/19 12/01/20 Eduardo Sharma MD [address] [place] [address] Assigned Sleep Provider 04/02/2005/07 Rios Monteiro MD [address] [place] [address] 300 [place], [place] 898297 Assigned Musculoskeletal Provider 04/02/20 08/24/20 Marcelo Artis, PA-C [id number] [place] [address] 300 [place] [address] Assigned Musculoskeletal Provider 08/25/20 08/20/21 Rodrigo Man PA-C [address] [facility] [address] [place] [address] Assigned Surgical Provider 08/25/20 11/27/20 Noreen Flores APRN AND DRYING SUPERVISOR COOKING CASING [address] [facility] [place] [address] Assigned PCP 08/05/22 03/16/23 Agatha Null DPM, Podiatry/Foot and Ankle Surgery [address] [place] [address] [place] [address] Assigned Musculoskeletal Provider 11/04/22 Clinic - [facility] 3305 [facility] [place] [id number] Assigned PCP 07/05/23 documented as of this encounter
--- OUTSIDE RECORDS SUMMARY | 2023-10-26 11:43 | XMS_ITS | Encounter Summary ---
Author Name Unknown Organization [place] Address [address] [place] [address] Care Team Providers Care Housekeeper Cleaning Cooking Name Role Phone Vanda Guerrero MD Primary Care Provider [phone] Vanda Guerrero MD Unavailable [phone] Jeana-Noreen Miles APRN SECURITIES SETTLEMENT PROCESSOR Un[facility] SECURITIES SETTLEMENT PROCESSOR Unavailable [facility]Jd[facility]en castro APRN SECURITIES SETTLEMENT PROCESSOR Primary Car e Provider Kalyan Galvan Unavailable Unavailable Lashae Trevino [facility] Unavailable Eduardo Sharma MD Unavailable Rios Monteiro MD Unavailable Marcelo Artis PA-C Unavailable [phone] Rodrigo Man PA-C Unavailable Jeana-Noreen Miles APRN SECURITIES SETTLEMENT PROCESSOR Unavailable Sudha Greene NP Primary Care Provider Agatha Null DPM, Podiatry /Foot and Ankle Surgery Unavailable [facility] [place] Unavailable Reason for Visit * Reason Onset Date Comments Patient/info Update 05/01/2016 foot prob Encounter Details Date Type Department Care Team (Late st Contact Info) Description 05/01/2016 MyC Medical Advice [facility] [address] [place] [address] Agatha Null DPM, Podiatry/Foot and Ankle Surgery [address] [place] [address] Patient/info Update (foot prob) Social History Tobacco [...] documented as of this encounter Care Teams Housekeeper Cleaning Cooking Relationship Specialty Start Date End Date Vanda Guerrero MD [address] [place] [address] [place] [address] PCP - General Internal Medicine 04/08/15 01/08/19 Vanda Guerrero MD [address] [place] [address] [place] [address] PCP - Assigned PCP 07/24/16 06/15/18 Noreen Flores APRN SECURITIES SETTLEMENT PROCESSOR [address] [place] [address] [place] [address] PCP - Assigned PCP 06/16/18 08/13/18 Noreen Flores APRN SECURITIES SETTLEMENT PROCESSOR [address] [place] [address] [place] [address] PCP - General Nurse Practitioner 01/09/19 12/12/21 Sudha Greene, MAURICIO [address] [address] PCP - General 11/01/22 Noreen Flores APRN SECURITIES SETTLEMENT PROCESSOR [address] [place] [address] [place] [address] Assigned PCP 06/16/18 05/26/22 Kalyan Galvan Personal Advocate & Liaison (PAL) 08/08/19 04/26/21 [facility] [address] [place] [address] [place] [address] Pharmacist Pharmacist 10/14/19 12/01/20 Eduardo Sharma MD [address] [address] Assigned Sleep Provider 04/02/2005/07 Rios Monteiro MD [address] [place] [address] Assigned Musculoskeletal Provider 04/02/20 08/24/20 Marcelo Artis PA-C [address] [address] Assigned Musculoskeletal Provider 08/25/20 08/20/21 Rodrigo Man PA-C [address] [place] [address] Assigned Surgical Provider 08/25/20 11/27/20 Noreen Flores APRN SECURITIES SETTLEMENT PROCESSOR 3305 [facility] [place] [address] Assigned PCP 08/05/22 03/16/23 Agatha Null DPM, Podiatry/Foot and Ankle Surgery [address] [place] [address] [place] 196697 Assigned Musculoskeletal Provider 11/04/22 Clinic - [facility] 3305 [facility] [place] [id number] Assigned PCP 07/05/23 documented as of this encounter
--- OUTSIDE RECORDS SUMMARY | 2023-10-26 11:43 | XMS_ITS | Encounter Summary ---
Author Name Unknown Organization [place] Address [address] [place] [address] Care Team Providers Care Children'S Ministries Director Name Role Phone Vanda Guerrero MD Primary Care Provider [phone] Vanda Guerrero MD Unavailable [phone] Jeana-Noreen Miles APRN BMET Unavailable JeanaNoreen Garcia APRN BMET Unavailable Jeana-JdNoreen castro APRN BMET Primary Car e Provider Kalyan Galvan Unavailable Unavailable [facility] Unavailable [phone] Eduardo Sharma MD Unavailable Rios Monteiro MD Unavailable [phone] Marcelo Artis PA-C Unavailable [phone] Rodrigo ManC Unavailable Jeana-JdNoreen castro APRN BMET Unavailable Sudha Greene NP Primary Care Provider Agatha NullM, Podiatry /Foot and Ankle Surgery Unavailable [facility] Unavailable Encounter Details Date Type Department Care Team (Late st Contact Info) Description 12/05/2016 [facility] [address] [place] [address] Heath Sandy Rodríguezne, [facility] [address] [facility] [place] [address] Social History Tobacco Use Types Packs/Day Years [...] documented as of this encounter Care Teams Children'S Ministries Director Relationship Specialty Start Date End Date Vanda Guerrero MD [address] [place] [address] [place] [address] PCP - General Internal Medicine 04/08/15 01/08/19 Vanda Guerrero MD [address] [place] [address] [place] [address] PCP - Assigned PCP 07/24/16 06/15/18 Noreen Flores APRN BMET [address] [place] [address] [place] [address] PCP - Assigned PCP 06/16/18 08/13/18 Noreen Flores APRN BMET [address] [place] [address] [place] [address] PCP - General Nurse Practitioner 01/09/19 12/12/21 Sudha Greene NP [address] [address] PCP - General 11/01/22 Noreen Flores APRN BMET [address] [place] [address] [place] [address] Assigned PCP 06/16/18 05/26/22 Kalyan Galvan Personal Advocate & Liaison (PAL) 08/08/19 04/26/21 Lashae Trevino, [facility] [place] [id number] Pharmacist Pharmacist 10/14/19 12/01/20 Eduardo Sharma MD [address] [place] [address] [place] [id number] Assigned Sleep Provider 04/02/2005/07 [place] [address] [place] [address] [place] [address] Assigned Musculoskeletal Provider 04/02/20 08/24/20 Marcelo Artis PA-C [address] [place] [address] [place] [address] Assigned Musculoskeletal Provider 08/25/20 08/20/21 Rodrigo Mna PA-C [address] [place] [address] [place] 845405 Assigned Surgical Provider 08/25/20 11/27/20 Noreen Flores APRN BMET [address] [facility] [place] [address] Assigned PCP 08/05/22 03/16/23 Agatha Null DPM, Podiatry/Foot and Ankle Surgery [address] [place] [address] Assigned Musculoskeletal Provider 11/04/22 [facility] 3[address] [facility] [place] [id number] Assigned PCP 07/05/23 documented as of this encounter
--- OUTSIDE RECORDS SUMMARY | 2023-10-26 11:43 | XMS_ITS | Encounter Summary ---
Author Name Unknown Organization [place] Address [address] [place] [address] Care Team Providers Care Auto Service Advisor Name Role Phone Vanda Guerrero MD Primary Care Provider [phone] Vanda Guerrero MD Unavailable [phone] Jeana-Noreen Miles APRN SAWMILL MANAGER Unavailable JeanaNoreen Garcia APRN SAWMILL MANAGER Unavailable Jeana-JdNoreen castro APRN SAWMILL MANAGER Primary Car e Provider Kalyan Galvan Unavailable Unavailable Lashae Trevino [facility] Unavailable Eduardo Sharma MD Unavailable Rios Monteiro MD Unavailable [phone] Marcelo Artis PA-C Unavailable Rodrigo ManC Unavailable Jeana-JdNoreen castro APRN SAWMILL MANAGER Unavailable Sudha Greene NP Primary Care Provider Agatha Null DPM, Podiatry /Foot and Ankle Surgery Unavailable [facility] Unavailable Encounter Details Date Type Department Care Team (Late st Contact Info) Description 03/21/2017 [facility] Lucy [facility] [address] [facility] [address] [place] [address] Dusty Oneil [facility] Social History Tobacco Use Types [...] of this encounter Care Teams Auto Service Advisor Relationship Specialty Start Date End Date Vanda Guerrero MD [address] [place] [address] [place] [address] PCP - General Internal Medicine 04/08/15 01/08/19 Vanda Guerrero MD [address] [place] [address] [place] [address] PCP - Assigned PCP 07/24/16 06/15/18 Noreen Flores APRN SAWMILL MANAGER [address] [place] [address] [place] [address] PCP - Assigned PCP 06/16/18 08/13/18 Noreen Flores APRN SAWMILL MANAGER [address] [place] [address] [place] [address] PCP - General Nurse Practitioner 01/09/19 12/12/21 Sudha Greene NP [address] [address] PCP - General 11/01/22 Noreen Flores APRN SAWMILL MANAGER [address] [facility] [place] [address] Assigned PCP 06/16/18 05/26/22 Kalyan Galvan Personal Advocate & Liaison (PAL) 08/08/19 04/26/21 Lashae Trevino [facility] [address] [facility] [place] [address] Pharmacist Pharmacist 10/14/19 12/01/20 Eduardo Sharma MD [address] [place] [address] [place] [address] Assigned Sleep Provider 04/02/2005/07 [place] [address] [facility] 300 [place] [address] Assigned Musculoskeletal Provider 04/02/20 08/24/20 Marcelo Artis PA-C [address] [facility] [place] [address] [place] [address] Assigned Musculoskeletal Provider 08/25/20 08/20/21 Rodrigo Man PA-C [address] [place] [address] [place] [address] Assigned Surgical Provider 08/25/20 11/27/20 Noreen Flores APRN SAWMILL MANAGER [address] [facility] [place] [address] Assigned PCP 08/05/22 03/16/23 Agatha Null DPM, Podiatry/Foot and Ankle Surgery [address] [place] [address] Assigned Musculoskeletal Provider 11/04/22 [facility] 3[address] [facility] [place] [address] Assigned PCP 07/05/23 documented as of this encounter
--- OUTSIDE RECORDS SUMMARY | 2023-10-26 11:43 | XMS_ITS | Encounter Summary ---
Author Name Unknown Organization [place] Address [address] [place] [address] Care Team Providers Care Arcade Game Technician Name Role Phone Vanda Guerrero MD Primary Care Provider [phone] Vanda Guerrero MD Unavailable [phone] Jeana-Noreen Miles APRN AIRCRAFT CLEANING SUPERVISOR Unavailable [facility]-Noreen Miles APRN AIRCRAFT CLEANING SUPERVISOR Unavailable [facility]-JdNoreen castro APRN AIRCRAFT CLEANING SUPERVISOR Primary Car e Provider Kalyan Galvan Unavailable Unavailable Lashae Trevino [facility] Unavailable Eduardo Sharma MD Unavailable Rios Monteiro MD Unavailable Marcelo Artis PA-C Unavailable [phone] Rodrigo Man PA-C Unavailable Jeana-JdNoreen castro APRN AIRCRAFT CLEANING SUPERVISOR Unavailable Sudha Greene NP Primary Care Provider Agatha Null DPM, Podiatry /Foot and Ankle Surgery Unavailable [facility] Unavailable Reason for Visit * Reason Comments Medication Refill simvastatin (ZOCOR) 20 MG tablet Encounter Details Date Type Department Care Team (Late st Contact Info) Description 02/15/2017 Refill [facility] [address] [facility] [address] [place] [address] Vanda Guerrero MD [address] [facility] [place] [address] Medication Refill (simvastatin (ZOCOR) 20 MG tablet) [...] Last Office Visit with [facility], [facility] or [facility] prescribing provider: 09/25/2016 Lab Results [...] 178 <200 mg/dL 02/17/2017 2:[address] [facility] Triglycerides 121 <150 mg/dL 02/17/2017 2:[address] [facility] Comment:Fasting specimen HDL Cholesterol 43(L) >49 mg/dL 7 2:[address] [facility] LDL Cholesterol Calculated 111(H) <100 mg/dL 02/17/2017 2:[address] [facility] Comment: Above desirable: ??100-129 mg/dl Borderline High: ??130-159 mg/dL High: ? 160-189 mg/dL Very high: ? >189 mg/dl Non HDL Cholesterol 135(H) <130 mg/dL 02/17/2017 2:[address] [facility] Comment: Above Desirable: ??130-159 mg/dl Borderline high: ??160-189 mg/dl High: ? 190-219 mg/dl Very high: ? >219 mg/dl Blood specimen (specimen) 02/17/2017 9:13 AM CDT 02/17/2017 9:18 AM CDT Vanda Guerrero MD LAB - BLOOD ORDER [facility]DEFONSO [facility] [address] [place] [address] documented in this encounter Visit Diagnoses Diagnosis [...] documented as of this encounter Care Teams Arcade Game Technician Relationship Specialty Start Date End Date Vanda Guerrero MD [address] [place] [address] [place] [address] PCP - General Internal Medicine 04/08/15 01/08/19 Vanda Guerrero MD [address] [place] [address] [place] [address] PCP - Assigned PCP 07/24/16 06/15/18 Noreen Flores APRN AIRCRAFT CLEANING SUPERVISOR [address] [place] [address] [place] [address] PCP - Assigned PCP 06/16/18 08/13/18 Noreen Flores APRN AIRCRAFT CLEANING SUPERVISOR [address] [place] [address] [place] [address] PCP - General Nurse Practitioner 01/09/19 12/12/21 Sudha Greene NP [address] [address] PCP - General 11/01/22 Noreen Flores APRN AIRCRAFT CLEANING SUPERVISOR [address] [place] [address] [place] [address] Assigned PCP 06/16/18 05/26/22 Kalyan Galvan Personal Advocate & Liaison (PAL) 08/08/19 04/26/21 [facility] [place] [address] Pharmacist Pharmacist 10/14/19 12/01/20 Eduardo Sharma MD [address] [facility] 103 [place] 490345 Assigned Sleep Provider 04/02/2005/07 Rios Monteiro MD [address] [place] [address] 300 [place] 137007 Assigned Musculoskeletal Provider 04/02/20 08/24/20 Marcelo Artis PA-C [address] [place] [address] 300 [place] [address] Assigned Musculoskeletal Provider 08/25/20 08/20/21 Rodrigo Man PA-C [address] [facility] 450 [place] 738885 Assigned Surgical Provider 08/25/20 11/27/20 Noreen Flores APRN AIRCRAFT CLEANING SUPERVISOR [address] [place] [address] [place] [address] Assigned PCP 08/05/22 03/16/23 Agatha Null DPM, Podiatry/Foot and Ankle Surgery [address] [place] [address] [address] [place] [address] Assigned Musculoskeletal Provider 11/04/22 [facility] [place] [place] 4[address]75 [facility] [place] [address] Assigned PCP 07/05/23 documented as of this encounter
--- OUTSIDE RECORDS SUMMARY | 2023-10-26 11:43 | XMS_ITS | Encounter Summary ---
Author Name Unknown Organization [place] Address [address] [place] [address] Care Team Providers Care Refrigerator Room Clerk Name Role Phone Vanda Guerrero MD Primary Care Provider [phone] Vanda Guerrero MD Unavailable [phone] Jeana-Noreen Miles APRN STITCH MARKER Unavailable [facility]-Noreen Miles APRN STITCH MARKER Unavailable [facility]-JdNoreen castro APRN STITCH MARKER Primary Car e Provider Kalyan Galvan Unavailable Unavailable Lashae Trevino [facility] Unavailable [phone] Eduardo Sharma MD Unavailable Rios Monteiro MD Unavailable [phone] Marcelo Artis-C Unavailable [phone] Rodrigo Man-C Unavailable [phone] Jeana-Noreen Miles APRN STITCH MARKER Unavailable Sudha Greene NP Primary Care Provider [phone] Agatha Null DPM, Podiatry /Foot and Ankle Surgery Unavailable [facility] Unavailable Reason for Referral * Consultation - Closed Specialty Diagnoses / Procedures Referred By Rylie t Referred To Contact Diagnoses Cervicalgia History of lumbar fusion History of fusion of cervical spine Vanda Guerrero MD [address] [facility] [place] [address] [facility] [address] [facility] [address] [place] [address] Referral ID Status Reason Start Date Expiration Date Visits Re quested Visits Authorized [id number] Closed 04/27/2015 04/26/2016 1 1 Comments [facility] is referring you to the Orthopedic Welding Machine Operator Ultrasonic Services at [facility]. The Welding Machine Operator Ultrasonic Mincemeat Maker will assist you in the coordination of your Orthopedic and Musculoskeletal Care as prescribed by your physician. The Welding Machine Operator Ultrasonic Mincemeat Maker will call you within 24 hours to help schedule your appointment, or you may contact the Welding Machine Operator Ultrasonic Mincemeat Maker at: [facility] ~ [facility] ~ [facility] ~ Type of Referral : Spine: Cervical / Thoracic: Medical Artist Color Separation Timeframe requested: Routine Coverage of these services is subject to the terms and limitations of your health insurance plan. Please call member services at your health plan with any benefit or coverage questions. If X-rays, CT or MRI's have been performed, please contact the facility where they were done to arrange for machine pecan picker, prior to your scheduled appointment. Please bring this referral request to your appointment and present it to your specialist. DENTIAL APPLIANCE REPAIR TECHNICIAN Reason for Visit * Reason Onset Date Comments Leg Pain 04/27/2015 Encounter Details Date Type Department Care Team (Late st Contact Info) Description 04/27/2015 MyC Medical Advice [facility] 1440 [facility] [place] [address] Vanda Guerrero MD [address] [facility] [place] [address] Leg Pain Social [...] Kallie Mishra RN - 04/27/2015 5:20 PM RESIDENTIAL APPLIANCE REPAIR TECHNICIAN Entered referral, sent Lyxia message to update the patient. DENTIAL APPLIANCE REPAIR TECHNICIAN * Telephone Encounter - Vanda Guerrero MD - 04/27/2015 3:16 PM RESIDENTIAL APPLIANCE REPAIR TECHNICIAN Recommend [facility] evaluation in the next 1-2 weeks. DENTIAL APPLIANCE REPAIR TECHNICIAN * Telephone Encounter - Kallie Mishra RN - 04/27/2015 3:14 PM RESIDENTIAL APPLIANCE REPAIR TECHNICIAN Would you recommend re-evaluation due to new symptoms? DENTIAL APPLIANCE REPAIR TECHNICIAN documented in this encounter Plan of [...] documented as of this encounter Care Teams Refrigerator Room Clerk Relationship Specialty Start Date End Date Vanda Guerrero MD [address] [facility] [place] [address] PCP - General Internal Medicine 04/08/15 01/08/19 Vanda Guerrero MD [address] [facility] [place] [address] PCP - Assigned PCP 07/24/16 06/15/18 Noreen Flores APRN STITCH MARKER [address] [place] [address] [place] [address] PCP - Assigned PCP 06/16/18 08/13/18 Noreen Flores APRN STITCH MARKER [address] [place] [address] [place] [address] PCP - General Nurse Practitioner 01/09/19 12/12/21 Sudha Greene NP [address] [address] PCP - General 11/01/22 Noreen Flores APRN STITCH MARKER [address] [place] [address] [place] [address] Assigned PCP 06/16/18 05/26/22 Kalyan Galvan Personal Advocate & Liaison (PAL) 08/08/19 04/26/21 Lashae Trevino, [facility] 1440 [facility] [place] [address] Pharmacist Pharmacist 10/14/19 12/01/20 Eduardo Sharma MD [address] [facility] 103 [place], [place] [address]105 Assigned Sleep Provider 04/02/2005/07 [place] [address] [facility] 300 [place] [address] Assigned Musculoskeletal Provider 04/02/20 08/24/20 Marcelo Artis PA-C [address] [facility] [address] [place] [address] Assigned Musculoskeletal Provider 08/25/20 08/20/21 Rodrigo Man PA-C [address] [facility] 450 [place] [address] Assigned Surgical Provider 08/25/20 11/27/20 Noreen Flores APRN STITCH MARKER [address] [place] [address] [place] [id number] Assigned PCP 08/05/22 03/16/23 Agatha Null DPM, Podiatry/Foot and Ankle Surgery [address] [facility] 300 [place] [address] Assigned Musculoskeletal Provider 11/04/22 [facility] [place] [facility] [address] [place] [address] [place] [id number] Assigned PCP 07/05/23 documented as of this encounter
--- OUTSIDE RECORDS SUMMARY | 2023-10-26 11:43 | XMS_ITS | Encounter Summary ---
Author Name Unknown Organization [place] Address [address] [place] [address] Care Team Providers Care Sustainability Director Name Role Phone Selma Good APRN PRE CERTIFICATION SPECIALIST Primary Care Pro vider Vanda Guerrero MD Primary Care Provider [phone] Vanda Guerrero MD Unavailable [phone] Jeana-JdNoreen castro APRN, CNP Unavailable Jeana-JdNoreen castro APRN, CNP Unavailable Jeana-JdNoreen castro APRN PRE CERTIFICATION SPECIALIST Primary Car e Provider Kalyan Galvan Unavailable Unavailable Lashae Trevino [facility] Unavailable [phone] Eduardo Sharma MD Unavailable Rios Monteiro MD Unavailable [phone] Marcelo Artis PA-C Unavailable [phone] Rodrigo Man PA-C Unavailable [phone] Jeana-JdNoreen castro APRN PRE CERTIFICATION SPECIALIST Unavailable Sudha Greene NP Primary Care Provider Agatha NullM, Podiatry /Foot and Ankle Surgery Unavailable [facility] Unavailable Encounter Details Date Type Department Care Team (Late st Contact Info) Description 08/17/2014 MyC Medical Advice [facility] [address] [place] [address] Day Greene APRN PRE CERTIFICATION SPECIALIST [address] [place] [address] [address] [place] [address] Social History Tobacco Use Types Packs/Day Years [...] documented as of this encounter Care Teams Sustainability Director Relationship Specialty Start Date End Date Selma Good APRN PRE CERTIFICATION SPECIALIST [address] [place] [address] [place] [address] PCP - General 04/09/08 04/07/15 Vanda Guerrero MD [address] [place] [address] [place] [address] PCP - General Internal Medicine 04/08/15 01/08/19 Vanda Guerrero MD [address] [place] [address] [place] [address] PCP - Assigned PCP 07/24/16 06/15/18 Noreen Flores APRN PRE CERTIFICATION SPECIALIST [address] [place] [address] [place] [address] PCP - Assigned PCP 06/16/18 08/13/18 Noreen Flores APRN PRE CERTIFICATION SPECIALIST [address] [place] [address] [place] [address] PCP - General Nurse Practitioner 01/09/19 12/12/21 Sudha Greene, [place] [address] [address] PCP - General 11/01/22 Noreen Flores APRN PRE CERTIFICATION SPECIALIST [address] [place] [address] [place] [address] Assigned PCP 06/16/18 05/26/22 Kalyan Galvan Personal Advocate & Liaison (PAL) 08/08/19 04/26/21 Lashae Trevino [facility] [address] [place] [address] [place] [phone] Pharmacist Pharmacist 10/14/19 12/01/20 Eduardo Sharma MD [address] [place] 220735 Assigned Sleep Provider 04/02/2005/07 [place] [address] [facility] 300 [place], [place] 775427 Assigned Musculoskeletal Provider 04/02/20 08/24/20 Marcelo Artis, PA-C 117[address] [facility] 300 [place], [place] [address] Assigned Musculoskeletal Provider 08/25/20 08/20/21 Rodrigo Man PA-C [address] [place] [address] Assigned Surgical Provider 08/25/20 11/27/20 Noreen Flores APRN PRE CERTIFICATION SPECIALIST 3305 [facility] [place] [address] Assigned PCP 08/05/22 03/16/23 Agatha Null DPM, Podiatry/Foot and Ankle Surgery [address] [place] [address] Assigned Musculoskeletal Provider 11/04/22 [facility] - [facility] 3[address] [facility] [place] [address] Assigned PCP 07/05/23 documented as of this encounter
--- OUTSIDE RECORDS SUMMARY | 2023-10-26 11:44 | XMS_ITS | Encounter Summary ---
Author Name Unknown Organization [place] Address [address] [place] [address] Care Team Providers Care Tailer Off Name Role Phone Selma Good APRN WELDER GAS Primary Care Pro vider Vanda Guerrero MD Primary Care Provider [phone] Vanda Guerrero MD Unavailable [phone] Jeana-JdNoeren castro APRN, CNP Unavailable Jeana-JdNoreen castro APRN, CNP Unavailable Jeana-JdNoreen castro APRN WELDER GAS Primary Car e Provider Kalyan Galvan Unavailable Unavailable Lashae Trevino [facility] Unavailable [phone] Eduardo Sharma MD Unavailable Rios Monteiro MD Unavailable [phone] Marcelo Artis-Aleyda Unavailable [phone] Rodrigo Man-C Unavailable [phone] Jeana-JdNoreen castro APRN WELDER GAS Unavailable Sudha Greene NP Primary Care Provider Agatha NullM, Podiatry /Foot and Ankle Surgery Unavailable [facility] Unavailable Reason for Visit * Reason Onset Date Comments Medication Question 11/23/2011 topamax Encounter Details Date Type Department Care Team (Late st Contact Info) Description 11/23/2011 [facility] [address] [place] [address] [place] [address] Selma Good APRN WELDER GAS [address] [facility] [place] [address] Medication Question (topamax) Social History Tobacco Use [...] documented as of this encounter Care Teams Tailer Off Relationship Specialty Start Date End Date Selma Good APRN WELDER GAS [address] [place] [address] [place] [address] PCP - General 04/09/08 04/07/15 Vanda Guerrero MD [address] [place] [address] [place] [address] PCP - General Internal Medicine 04/08/15 01/08/19 Vanda Guerrero MD [address] [place] [address] [place] [address] PCP - Assigned PCP 07/24/16 06/15/18 Noreen Flores APRN WELDER GAS [address] [place] [address] [place] [address] PCP - Assigned PCP 06/16/18 08/13/18 Noreen Flores APRN WELDER GAS [address] [place] [address] [place] [address] PCP - General Nurse Practitioner 01/09/19 12/12/21 Sudha Greene NP [address] [address] PCP - General 11/01/22 Noreen Flores APRN WELDER GAS [address] [place] [address] [place] [address] Assigned PCP 06/16/18 05/26/22 Kalyan Galvan Personal Advocate & Liaison (PAL) 08/08/19 04/26/21 [facility] [address] [place] [address] [place] [address] Pharmacist Pharmacist 10/14/19 12/01/20 Eduardo Sharma MD [address] [address] Assigned Sleep Provider 04/02/2005/07 Rios Monteiro MD [address] [place] [address] Assigned Musculoskeletal Provider 04/02/20 08/24/20 Marcelo Artis, PA-C [address] [facility] [address] [place] [address] Assigned Musculoskeletal Provider 08/25/20 08/20/21 Rodrigo Man PA-C [address] [facility] 450 [place] [address] Assigned Surgical Provider 08/25/20 11/27/20 Noreen Flores APRN WELDER GAS [address]305 [facility] [place] [address] Assigned PCP 08/05/22 03/16/23 Agatha Nlul DPM, Podiatry/Foot and Ankle Surgery 17322 [facility] [address] [place] [address] Assigned Musculoskeletal Provider 11/04/22 [facility] - [place] [place] [facility] [address] [facility] [place] [id number] Assigned PCP 07/05/23 documented as of this encounter
--- OUTSIDE RECORDS SUMMARY | 2023-10-26 11:44 | XMS_ITS | Encounter Summary ---
Author Name Unknown Organization [place] Address [address] [place] [address]478 Care Team Providers Care Rod Cup Filler Name Role Phone Selma Good APRN EDGE BONDER Primary Care Pro vider Vanda Guerrero MD Primary Care Provider [phone] Vanda Guerrero MD Unavailable [phone] Jeana-JdNoreen castro APRN, CNP Unavailable Jeana-JdNoreen castro APRN, CNP Unavailable Jeana-JdNoreen castro APRN EDGE BONDER Primary Car e Provider Kalyan Galvan Unavailable Unavailable Lashae Trevino [facility] Unavailable [phone] Eduardo Sharma MD Unavailable Rios Monteiro MD Unavailable [phone] Marcelo Artis-Aleyda Unavailable [phone] Rodrigo Man-C Unavailable [phone] Jeana-JdNoreen castro APRN EDGE BONDER Unavailable Sudha Greene NP Primary Care Provider Agatha NullM, Podiatry /Foot and Ankle Surgery Unavailable [facility] Unavailable Reason for Visit * Reason Onset Date Comments Appointment 08/10/2010 next diabetes? Encounter Details Date Type Department Care Team (Late st Contact Info) Description 08/10/2010 [facility] [address] [place] [address] [place] [phone] Selma Good APRN EDGE BONDER [facility] [place] [address] Appointment (next diabetes? ) Social History Tobacco [...] documented as of this encounter Care Teams Rod Cup Filler Relationship Specialty Start Date End Date Selma Good APRN EDGE BONDER [address] [place] [address] [place] [address] PCP - General 04/09/08 04/07/15 Vanda Guerrero MD [address] [place] [address] [place] [address] PCP - General Internal Medicine 04/08/15 01/08/19 Vanda Guerrero MD [address] [place] [address] [place] [address] PCP - Assigned PCP 07/24/16 06/15/18 Noreen Flores APRN EDGE BONDER [address] [place] [address] [place] [address] PCP - Assigned PCP 06/16/18 08/13/18 Noreen Flores APRN EDGE BONDER [address] [place] [address] [place] [address] PCP - General Nurse Practitioner 01/09/19 12/12/21 Sudha Greene NP [address] [address] PCP - General 11/01/22 Noreen Flores APRN EDGE BONDER [address] [place] [address] [place] [address] Assigned PCP 06/16/18 05/26/22 Kalyan Galvan Personal Advocate & Liaison (PAL) 08/08/19 04/26/21 [facility] [place] [phone] Pharmacist Pharmacist 10/14/19 12/01/20 Eduardo Sharma MD [address] [place] [address] Assigned Sleep Provider 04/02/2005/07 Rios Monteiro MD [address] [place] [address] [id number] Assigned Musculoskeletal Provider 04/02/20 08/24/20 Marcelo Artis, PA-C [id number] [place] [address] 300 [place] [address] Assigned Musculoskeletal Provider 08/25/20 08/20/21 Rodrigo Man PA-C [address] [place] [address] Assigned Surgical Provider 08/25/20 11/27/20 Noreen Flores APRN EDGE BONDER [address] [facility] [place] [address] Assigned PCP 08/05/22 03/16/23 Agatha Null DPM, Podiatry/Foot and Ankle Surgery [address] [place] [address] [place] [address] Assigned Musculoskeletal Provider 11/04/22 Clinic - [facility] Pringle [facility] [address] [facility] [address] [place] [phone] Assigned PCP 07/05/23 documented as of this encounter
--- OUTSIDE RECORDS SUMMARY | 2023-10-26 11:44 | XMS_ITS | Encounter Summary ---
Author Name Unknown Organization [place] Address [address] [place] [address] 25739 Care Team Providers Care Equipment Detailer Name Role Phone Selma Good APRN CHOCOLATE COATER Primary Care Pro vider Vanda Guerrero MD Primary Care Provider [phone] Vanda Guerrero MD Unavailable [phone] Jeana-JdNoreen castro APRN, CNP Unavailable Jeana-JdNoreen castro APRN, CNP Unavailable Jeana-JdNoreen castro APRN CHOCOLATE COATER Primary Car e Provider Kalyan Galvan Unavailable Unavailable Lashae Trevino [facility] Unavailable [phone] Eduardo Sharma MD Unavailable Rios Monteiro MD Unavailable [phone] Marcelo Artis PA-C Unavailable [phone] Rodrigo Man PA-C Unavailable [phone] Jeana-JdNoreen castro APRN CHOCOLATE COATER Unavailable Sudha Greene NP Primary Care Provider Agatha NullM, Podiatry /Foot and Ankle Surgery Unavailable [facility] Unavailable Encounter Details Date Type Department Care Team (Late st Contact Info) Description 12/14/2009 [facility] [place] [id number] [facility] [place] [phone] Alejo [...] as of this encounter Care Teams Equipment Detailer Relationship Specialty Start Date End Date Selma Good APRN CHOCOLATE COATER [address] [place] [address] [place] [address] PCP - General 04/09/08 04/07/15 Vanda Guerrero MD [address] [place] [address] [place] [address] PCP - General Internal Medicine 04/08/15 01/08/19 Vanda Guerrero MD [address] [place] [address] [place] [address] PCP - Assigned PCP 07/24/16 06/15/18 Noreen Flores APRN CHOCOLATE COATER [address] [place] [address] [place] [address] PCP - Assigned PCP 06/16/18 08/13/18 Noreen Flores APRN CHOCOLATE COATER [address] [facility] [place] [address] PCP - General Nurse Practitioner 01/09/19 12/12/21 Sudha Greene NP [address] [address] PCP - General 11/01/22 Noreen Flores APRN CHOCOLATE COATER [address] [place] [address] [place] [address] Assigned PCP 06/16/18 05/26/22 Kalyan Galvan Personal Advocate & Liaison (PAL) 08/08/19 04/26/21 [facility] [address] [place] [address] [place] [address] Pharmacist Pharmacist 10/14/19 12/01/20 Eduardo Sharma MD [address] [place] [address] [place] [address] Assigned Sleep Provider 04/02/2005/07 [place] [address] [facility] [place] [address] [place] [address] Assigned Musculoskeletal Provider 04/02/20 08/24/20 Marcelo Artis PA-C 370[address] [facility] [place] 300 [place] [address] Assigned Musculoskeletal Provider 08/25/20 08/20/21 Rodrigo Man PA-C [address] [place] [address] [place] [address] Assigned Surgical Provider 08/25/20 11/27/20 Noreen Flores APRN CHOCOLATE COATER [address] [facility] [place] [address] Assigned PCP 08/05/22 03/16/23 Agatha Null DPM, Podiatry/Foot and Ankle Surgery [address] [place] [address] [place] 323847 Assigned Musculoskeletal Provider 11/04/22 [facility] [address] [facility] [address] [place] [address] Assigned PCP 07/05/23 documented as of this encounter
--- OUTSIDE RECORDS SUMMARY | 2023-10-26 11:44 | XMS_ITS | Encounter Summary ---
Author Name Unknown Organization [place] Address [address] [place] [address] Care Team Providers Care Deck And Hull Assembler Name Role Phone Selma Good APRN FIGURE MODEL Primary Care Pro vider Vanda Guerrero MD Primary Care Provider [phone] Vanda Guerrero MD Unavailable [phone] Jeana-JdNoreen castro APRN, CNP Unavailable Jeana-JdNoreen castro APRN, CNP Unavailable Jeana-JdNoreen castro APRN FIGURE MODEL Primary Car e Provider Kalyan Galvan Unavailable Unavailable Lashae Trevino [facility] Unavailable [phone] Eduardo Sharma MD Unavailable Rios Monteiro MD Unavailable [phone] Marcelo Artis-Aleyda Unavailable [phone] Rodrigo Man-C Unavailable [phone] Jeana-JdNoreen castro APRN FIGURE MODEL Unavailable Sudha Greene NP Primary Care Provider Agatha NullM, Podiatry /Foot and Ankle Surgery Unavailable [facility] Unavailable Reason for Visit * Reason Onset Date Comments Medication Question 05/29/2012 wellbutrin Encounter Details Date Type Department Care Team (Late st Contact Info) Description 05/29/2012 MyC Medical Advice [address] [place] [phone] Selma Good, SUPPORT SERVICES TECH FIGURE MODEL [address] [place] [address] [place] [address] Medication Question (wellbutrin) Social History Tobacco Use [...] documented as of this encounter Care Teams Deck And Hull Assembler Relationship Specialty Start Date End Date Selma Good, SUPPORT SERVICES TECH FIGURE MODEL [address] [place] [address] [place] [address] PCP - General 04/09/08 04/07/15 Vanda Guerrero MD [address] [place] [address] [place] [address] PCP - General Internal Medicine 04/08/15 01/08/19 Vanda Guerrero MD [address] [place] [address] [place] [address] PCP - Assigned PCP 07/24/16 06/15/18 Noreen Flores APRN FIGURE MODEL [address] [place] [address] [place] [address] PCP - Assigned PCP 06/16/18 08/13/18 Noreen Flores APRN FIGURE MODEL [address] [place] [address] [place] [address] PCP - General Nurse Practitioner 01/09/19 12/12/21 Sudha Greene NP [address] [address] PCP - General 11/01/22 Noreen Flores APRN FIGURE MODEL [address] [place] [address] [place] [address] Assigned PCP 06/16/18 05/26/22 Kalyan Galvan Personal Advocate & Liaison (PAL) 08/08/19 04/26/21 [facility] [address] [place] [address] [place] [phone] Pharmacist Pharmacist 10/14/19 12/01/20 Eduardo Sharma MD [address] [facility] 103 [place] [id number] Assigned Sleep Provider 04/02/2005/07 [place] [address] [facility] 300 [place] 148297 Assigned Musculoskeletal Provider 04/02/20 08/24/20 Marcelo Artis PA-C [address] [facility] 300 [place] [address] Assigned Musculoskeletal Provider 08/25/20 08/20/21 Rodrigo Man PA-C [address] [facility] 450 [place] [address] Assigned Surgical Provider 08/25/20 11/27/20 Noreen Flores APRN CNP [address] [place] [address] [place] [address] Assigned PCP 08/05/22 03/16/23 Agatha Null DPM, Podiatry/Foot and Ankle Surgery [address] [facility] 300 [place] [address] Assigned Musculoskeletal Provider 11/04/22 [facility] 3[address] [facility] [place] [phone] Assigned PCP 07/05/23 documented as of this encounter
--- OUTSIDE RECORDS SUMMARY | 2023-10-26 11:44 | XMS_ITS | Encounter Summary ---
Author Name Unknown Organization [place] Address [address] [place] [address]79 Care Team Providers Care Oral Surgery Assistant Name Role Phone Selma Good APRN HUMAN RESOURCE MANAGEMENT INSTRUCTOR Primary Care Pro vider Vanda Guerrero MD Primary Care Provider [phone] Vanda Guerrero MD Unavailable [phone] Jeana-JdNoreen castro APRN, CNP Unavailable Jeana-JdNoreen castro APRN, CNP Unavailable Jeana-JdNoreen csatro APRN HUMAN RESOURCE MANAGEMENT INSTRUCTOR Primary Car e Provider Kalyan Galvan Unavailable Unavailable Lashae Trevino [facility] Unavailable [phone] Eduardo Sharma MD Unavailable Rios Monteiro MD Unavailable [phone] Marcelo Artis PA-C Unavailable [phone] Rodrigo Man PA-C Unavailable [phone] Jeana-JdNoreen castro APRN HUMAN RESOURCE MANAGEMENT INSTRUCTOR Unavailable Sudha Greene NP Primary Care Provider [phone] Agatha NullM, Podiatry /Foot and Ankle Surgery Unavailable [facility] Unavailable Encounter Details Date Type Department Care Team (Late st Contact Info) Description 04/17/2010 MyC Medical Advice [address] [place] [phone] Selma Good APRN HUMAN RESOURCE MANAGEMENT INSTRUCTOR [address] [place] [address] [place] [address] Social History Tobacco Use Types Packs/Day Years [...] respond to pt regarding her sodium intake. WARE SOFTWARE VERIFICATION ENGINEER documented in this encounter Plan of Treatment Not on file documented as of this encounter Visit Diagnoses Not on filedocumented in this encounter Additional Health Concerns Infection Onset Date Last Indicated Resolved Time Rule Out COVID-19 08/25/2020 08/25/2020 08/26/2020 3:23 PM CDT Rule Out COVID-19 11/26/2022 11/26/2022 11/27/2022 3:38 PM CDT documented as of this encounter Care Teams Oral Surgery Assistant Relationship Specialty Start Date End Date Selma Good APRN HUMAN RESOURCE MANAGEMENT INSTRUCTOR [address] [place] [address] [place] [address] PCP - General 04/09/08 04/07/15 Vanda Guerrero MD [address] [place] [address] [place] [address] PCP - General Internal Medicine 04/08/15 01/08/19 Vanda Guerrero MD [address] [place] [address] [place] [address] PCP - Assigned PCP 07/24/16 06/15/18 Noreen Flores APRN HUMAN RESOURCE MANAGEMENT INSTRUCTOR [address] [place] [address] [place] [address] PCP - Assigned PCP 06/16/18 08/13/18 Noreen Flores APRN HUMAN RESOURCE MANAGEMENT INSTRUCTOR [address] [place] [address] [place] [address] PCP - General Nurse Practitioner 01/09/19 12/12/21 Sudha Greene, [place] [address] [address] PCP - General 11/01/22 Noreen Flores APRN HUMAN RESOURCE MANAGEMENT INSTRUCTOR [address] [place] [address] [place] [address] Assigned PCP 06/16/18 05/26/22 Kalyan Galvan Personal Advocate & Liaison (PAL) 08/08/19 04/26/21 [facility] [address] [facility] [place] [phone] Pharmacist Pharmacist 10/14/19 12/01/20 Eduardo Sharma MD [address] [facility] 103 [place] [id number] Assigned Sleep Provider 04/02/2005/07 [place] [address] [facility] 300 [place] 388117 Assigned Musculoskeletal Provider 04/02/20 08/24/20 Marcelo Artis PA-C [address] [address] Assigned Musculoskeletal Provider 08/25/20 08/20/21 Rodrigo Man PA-C [address] [address] Assigned Surgical Provider 08/25/20 11/27/20 Noreen Flores APRN HUMAN RESOURCE MANAGEMENT INSTRUCTOR [address] [place] [address] [place] [address] Assigned PCP 08/05/22 03/16/23 Agatha Null DPM, Podiatry/Foot and Ankle Surgery [address] [place] [address] 300 [place] [address] Assigned Musculoskeletal Provider 11/04/22 [facility] Pringle [facility] [address] [place], [place] [address] [address] Assigned PCP 07/05/23 documented as of this encounter
--- OUTSIDE RECORDS SUMMARY | 2023-10-26 11:44 | XMS_ITS | Encounter Summary ---
Author Name Unknown Organization [place] Address [address] [place] [address] Care Team Providers Care Freight Elevator Operator Name Role Phone Selma Good APRN DIALYSIS TECHNICIAN Primary Care Pro vider Vanda Guerrero MD Primary Care Provider [phone] Vanda Guerrero MD Unavailable [phone] Jeana-JdNoreen castro APRN, CNP Unavailable Jeana-JdNoreen castro APRN, CNP Unavailable Jeana-JdNoreen castro APRN DIALYSIS TECHNICIAN Primary Car e Provider Kalyan Galvan Unavailable Unavailable Lashae Trevino [facility] Unavailable [phone] Eduardo Sharma MD Unavailable Rios Monteiro MD Unavailable [phone] Marcelo Artis PA-C Unavailable [phone] Rodrigo Man PA-C Unavailable [phone] Jeana-JdNoreen castro APRN DIALYSIS TECHNICIAN Unavailable Sudha Greene NP Primary Care Provider Agatha NullM, Podiatry /Foot and Ankle Surgery Unavailable [facility] Unavailable Encounter Details Date Type Department Care Team (Late st Contact Info) Description 02/11/2010 [facility] [id number] [facility] [place] [phone] Alejo Casas [...] as of this encounter Care Teams Freight Elevator Operator Relationship Specialty Start Date End Date Selma Good APRN DIALYSIS TECHNICIAN [address] [place] [address] [place] [address] PCP - General 04/09/08 04/07/15 Vanda Guerrero MD [address] [place] [address] [place] [address] PCP - General Internal Medicine 04/08/15 01/08/19 Vanda Guerrero MD [address] [place] [address] [place] [address] PCP - Assigned PCP 07/24/16 06/15/18 Noreen Flores APRN DIALYSIS TECHNICIAN [address] [place] [address] [place] [address] PCP - Assigned PCP 06/16/18 08/13/18 Noreen Flores APRN DIALYSIS TECHNICIAN [address] [facility] [place] [address] PCP - General Nurse Practitioner 01/09/19 12/12/21 Sudha Greene NP [address] [address] PCP - General 11/01/22 Noreen Flores APRN DIALYSIS TECHNICIAN [address] [place] [address] [place] [address] Assigned PCP 06/16/18 05/26/22 Kalyan Galvan Personal Advocate & Liaison (PAL) 08/08/19 04/26/21 [facility] [address] [place] [address] [place] [address] Pharmacist Pharmacist 10/14/19 12/01/20 Eduardo Sharma MD [address] [place] [address] [place] [address] Assigned Sleep Provider 04/02/2005/07 [place] [address] [facility] [place] [place] [address] Assigned Musculoskeletal Provider 04/02/20 08/24/20 Marcelo Artis PA-C [address] [facility] [address] 300 [place] [address] Assigned Musculoskeletal Provider 08/25/20 08/20/21 oRdrigo Man PA-C [address] [place] [address] [place] [address] Assigned Surgical Provider 08/25/20 11/27/20 Noreen Flores APRN DIALYSIS TECHNICIAN [address] [facility] [place] [address] Assigned PCP 08/05/22 03/16/23 Agatha Null DPM, Podiatry/Foot and Ankle Surgery [address] [place] 300 [place] 219987 Assigned Musculoskeletal Provider 11/04/22 [facility] P[facility]le [facility] [address] [facility] [address] [place] [address] Assigned PCP 07/05/23 documented as of this encounter
--- OUTSIDE RECORDS SUMMARY | 2023-10-26 11:44 | XMS_ITS | Encounter Summary ---
Author Name Unknown Organization [place] Address [address] [place] [address] Care Team Providers Care Senior Oracle Pl Sql Developer Name Role Phone Selma Good APRN BRIDGE PAINTER Primary Care Pro vider Vanda Guerrero MD Primary Care Provider [phone] Vanda Guerrero MD Unavailable [phone] Jeana-JdNoreen castro APRN, CNP Unavailable Jeana-JdNoreen castro APRN, CNP Unavailable Jeana-JdNoreen castro APRN BRIDGE PAINTER Primary Car e Provider Kalyan Galvan Unavailable Unavailable Lashae Trevino [facility] Unavailable [phone] Eduardo Sharma MD Unavailable Rios Monteiro MD Unavailable [phone] Marcelo Artis-Aleyda Unavailable [phone] Rodrigo Man-C Unavailable [phone] Jeana-JdNoreen castro APRN BRIDGE PAINTER Unavailable Sudha Greene NP Primary Care Provider Agatha NullM, Podiatry /Foot and Ankle Surgery Unavailable [facility] Unavailable Reason for Visit * Reason Onset Date Comments Patient Request 07/01/2009 Encounter Details Date Type Department Care Team (Late st Contact Info) Description 07/01/2009 [facility] [address] [place] [address] [place] [phone] Selma Good APRN BRIDGE PAINTER [address] [place] [address] [place] [address] Patient Request Social History Tobacco Use Types [...] as of this encounter Care Teams Senior Oracle Pl Sql Developer Relationship Specialty Start Date End Date Selma Good APRN BRIDGE PAINTER [address] [place] [address] [place] [address] PCP - General 04/09/08 04/07/15 Vanda Guerrero MD [address] [place] [address] [place] [address] PCP - General Internal Medicine 04/08/15 01/08/19 Vanda Guerrero MD [address] [place] [address] [place] [address] PCP - Assigned PCP 07/24/16 06/15/18 Noreen Flores APRN CNP [address] [facility] [place] [address] PCP - Assigned PCP 06/16/18 08/13/18 Noreen Flores APRN BRIDGE PAINTER [address] [place] [address] [place] [address] PCP - General Nurse Practitioner 01/09/19 12/12/21 Sudha Greene NP [address] [address] PCP - General 11/01/22 Noreen Flores APRN BRIDGE PAINTER [address] [place] [address] [place] [address] Assigned PCP 06/16/18 05/26/22 Kalyan Galvan Personal Advocate & Liaison (PAL) 08/08/19 04/26/21 Lashae Trevino, [facility] [address] [place] [address] [place] [phone] Pharmacist Pharmacist 10/14/19 12/01/20 Eduardo Sharma MD [address] [place] [address] Assigned Sleep Provider 04/02/2005/07 [place] [address] [facility] 300 [place], [place] [id number] Assigned Musculoskeletal Provider 04/02/20 08/24/20 Marcelo Artis PA-C [address] [facility] 300 [place], [place] 13739337 Assigned Musculoskeletal Provider 08/25/20 08/20/21 Rodrigo Man PA-C [address] [place] [address] [place] [address] Assigned Surgical Provider 08/25/20 11/27/20 Noreen Flores APRN BRIDGE PAINTER [address] [facility] [place] [address] Assigned PCP 08/05/22 03/16/23 Agatha Null DPM, Podiatry/Foot and Ankle Surgery [address] [place] [address] [place] [address] Assigned Musculoskeletal Provider 11/04/22 Clinic - N[facility] Pringle [facility] [address] [facility] [place] [address] Assigned PCP 07/05/23 documented as of this encounter
--- OUTSIDE RECORDS SUMMARY | 2023-10-26 11:44 | XMS_ITS | Encounter Summary ---
Author Name Unknown Organization [place] Address [address] [place] [address] Care Team Providers Care Deskidding Machine Operator Name Role Phone Selma Good APRN BODYWORK THERAPIST Primary Care Pro vider Vanda Guerrero MD Primary Care Provider [phone] Vanda Guerrero MD Unavailable [phone] Jeana-JdNoreen castro APRN, CNP Unavailable Jeana-JdNoreen castro APRN, CNP Unavailable Jeana-JdNoreen castro APRN BODYWORK THERAPIST Primary Car e Provider Kalyan Galvan Unavailable Unavailable Lashae Trevino [facility] Unavailable [phone] Eduardo Sharma MD Unavailable Rios Monteiro MD Unavailable [phone] Marcelo Artis PA-C Unavailable [phone] Rodrigo Man PA-C Unavailable [phone] Jeana-JdNoreen castro APRN BODYWORK THERAPIST Unavailable Sudha Greene NP Primary Care Provider Agatha NullM, Podiatry /Foot and Ankle Surgery Unavailable [facility] Unavailable Encounter [...] documented as of this encounter Care Teams Deskidding Machine Operator Relationship Specialty Start Date End Date Selma Good APRN BODYWORK THERAPIST [address] [place] [address] [place] [address] PCP - General 04/09/08 04/07/15 Vanda Guerrero MD [address] [place] [address] [place] [address]346 PCP - General Internal Medicine 04/08/15 01/08/19 Vanda Guerrero MD [address] [place] [address] [place] [address] PCP - Assigned PCP 07/24/16 06/15/18 Noreen Flores APRN BODYWORK THERAPIST [address] [place] [address] [place] [address] PCP - Assigned PCP 06/16/18 08/13/18 Noreen Flores APRN BODYWORK THERAPIST [address] [place] [address] [place] [address] PCP - General Nurse Practitioner 01/09/19 12/12/21 Sudha Greene NP [address] [address] PCP - General 11/01/22 Noreen Flores APRN BODYWORK THERAPIST [address] [facility] [place] [address] Assigned PCP 06/16/18 05/26/22 Kalyan Galvan Personal Advocate & Liaison (PAL) 08/08/19 04/26/21 Lashae Trevino, [facility] [address] [facility] [place] [address] Pharmacist Pharmacist 10/14/19 12/01/20 Eduardo Sharma MD [address] [place] [address] [place] 564015 Assigned Sleep Provider 04/02/2005/07 [place] [address] [facility] [address] [place] [address] Assigned Musculoskeletal Provider 04/02/20 08/24/20 Marcelo Artis PA-C [address] [place] [address] [place] [address] Assigned Musculoskeletal Provider 08/25/20 08/20/21 Rodrigo Man PA-C [address] [place] [address] [place] [address] Assigned Surgical Provider 08/25/20 11/27/20 Noreen Flores APRN BODYWORK THERAPIST 3[address] [facility] [place] [address] Assigned PCP 08/05/22 03/16/23 Agatha Null DPM, Podiatry/Foot and Ankle Surgery [address] [place] [address] Assigned Musculoskeletal Provider 11/04/22 Clinic - [facility] [place] [facility] 3305 [facility] [place] [id number] Assigned PCP 07/05/23 documented as of this encounter
--- OUTSIDE RECORDS SUMMARY | 2023-10-26 11:44 | XMS_ITS | Encounter Summary ---
Author Name Unknown Organization [place] Address [address] [place] [address] Care Team Providers Care Biztalk Administrator Name Role Phone Selma Good APRN INSTRUMENT LENS GENERATOR Primary Care Pro vider Vanda Guerrero MD Primary Care Provider [phone] Vanda Guerrero MD Unavailable [phone] Jeana-JdNoreen castro APRN, CNP Unavailable Jeana-JdNoreen castro APRN, CNP Unavailable Jeana-JdNoreen castro APRN INSTRUMENT LENS GENERATOR Primary Car e Provider Kalyan Galvan Unavailable Unavailable Lashae Trevino [facility] Unavailable [phone] Eduardo Sharma MD Unavailable Rios Monteiro MD Unavailable [phone] Marcelo Artis PA-C Unavailable [phone] Rodrigo Man PA-C Unavailable [phone] Jeana-JdNoreen castro APRN INSTRUMENT LENS GENERATOR Unavailable Sudha Greene NP Primary Care Provider Agatha NullM, Podiatry /Foot and Ankle Surgery Unavailable [facility] Unavailable Encounter Details Date Type Department Care Team (Late st Contact Info) Description 05/28/2012 [facility] Medical Advice [address] [place] [address] Alejo Casas Social [...] documented as of this encounter Care Teams Biztalk Administrator Relationship Specialty Start Date End Date Selma Good APRN INSTRUMENT LENS GENERATOR [address] [facility] [place] [address] PCP - General 04/09/08 04/07/15 Vanda Guerrero MD [address] [place] [address] [place] [address] PCP - General Internal Medicine 04/08/15 01/08/19 Vanda Guerrero MD [address] [place] [address] [place] [address] PCP - Assigned PCP 07/24/16 06/15/18 Noreen Flores APRN INSTRUMENT LENS GENERATOR [facility]5 [facility] [place] [address] PCP - Assigned PCP 06/16/18 08/13/18 Noreen Flores APRN INSTRUMENT LENS GENERATOR [address] [place] [address] [place] [address] PCP - General Nurse Practitioner 01/09/19 12/12/21 Sudha Greene NP [address] [address] PCP - General 11/01/22 Noreen Flores APRN INSTRUMENT LENS GENERATOR [address] [place] [address] [place] [address] Assigned PCP 06/16/18 05/26/22 Kalyan Galvan Personal Advocate & Liaison (PAL) 08/08/19 04/26/21 [facility] [address] [place] [address] [place] [address] Pharmacist Pharmacist 10/14/19 12/01/20 Eduardo Sharma MD [address] [address] Assigned Sleep Provider 04/02/2005/07 [place] [id number] [place] [address] 300 [place] [address] Assigned Musculoskeletal Provider 04/02/20 08/24/20 Marcelo Artis PA-C [address] [facility] 300 [place] [address] Assigned Musculoskeletal Provider 08/25/20 08/20/21 Rodrigo Man PA-C [address] [place] [address] Assigned Surgical Provider 08/25/20 11/27/20 Noreen Flores APRN INSTRUMENT LENS GENERATOR [address] [facility] [place] [address] Assigned PCP 08/05/22 03/16/23 Agatha Null DPM, Podiatry/Foot and Ankle Surgery [address] [place] [address] [place] [id number] Assigned Musculoskeletal Provider 11/04/22 Clinic - [facility] 3305 [facility] [place] [address] Assigned PCP 07/05/23 documented as of this encounter
--- OUTSIDE RECORDS SUMMARY | 2023-10-26 11:44 | XMS_ITS | Encounter Summary ---
Author Name Unknown Organization [place] Address [address] [place] [address] Care Team Providers Care Bung Sewer Name Role Phone Selma Good APRN WORKERS COMPENSATION MANAGER Primary Care Pro vider Vanda Guerrero MD Primary Care Provider [phone] Vanda Guerrero MD Unavailable [phone] Jeana-JdNoreen castro APRN, CNP Unavailable Jeana-JdNoreen castro APRN, CNP Unavailable Jeana-JdNoreen castro APRN WORKERS COMPENSATION MANAGER Primary Car e Provider Kalyan Galvan Unavailable Unavailable Lashae Trevino [facility] Unavailable [phone] dEuardo Sharma MD Unavailable Rios Monteiro MD Unavailable [phone] Marcelo Artis-Aleyda Unavailable [phone] Rodrigo Man-C Unavailable [phone] Jeana-JdNoreen castro APRN WORKERS COMPENSATION MANAGER Unavailable Sudha Greene NP Primary Care Provider Agatha NullM, Podiatry /Foot and Ankle Surgery Unavailable [facility] Unavailable Reason for Visit * Reason Onset Date Comments Cellulitis 09/13/2010 not completely g one Encounter Details Date Type Department Care Team (Late st Contact Info) Description 09/13/2010 MyC Medical Advice [facility] [address] [place] [address] [place] [phone] Selma Good, ENGINE RESEARCH ENGINEER WORKERS COMPENSATION MANAGER [facility]5 [facility] [place] [address] Cellulitis (not completely gone ) Social History [...] as of this encounter Care Teams Bung Sewer Relationship Specialty Start Date End Date Selma Good, SEAN WORKERS COMPENSATION MANAGER [address] [place] [address] [place] [address] PCP - General 04/09/08 04/07/15 Vanda Guerrero MD [address] [place] [address] [place] [address] PCP - General Internal Medicine 04/08/15 01/08/19 Vanda Guerrero MD [address] [place] [address] [place] [address] PCP - Assigned PCP 07/24/16 06/15/18 Noreen Flores APRN WORKERS COMPENSATION MANAGER [address] [place] [address] [place] [address] PCP - Assigned PCP 06/16/18 08/13/18 Noreen Flores APRN WORKERS COMPENSATION MANAGER [address] [place] [address] [place] [address] PCP - General Nurse Practitioner 01/09/19 12/12/21 Sudha Greene NP [address] [address] PCP - General 11/01/22 Noreen Flores APRN WORKERS COMPENSATION MANAGER [address] [place] [address] [place] [address] Assigned PCP 06/16/18 05/26/22 Kalyan Galvan Personal Advocate & Liaison (PAL) 08/08/19 04/26/21 [facility] [address] [place] [address] [place] [address] Pharmacist Pharmacist 10/14/19 12/01/20 Eduardo Sharma MD [address] [place] [address] Assigned Sleep Provider 04/02/2005/07 Rios Monteiro MD [address] [place] [address] 300 [place], [place] 549017 Assigned Musculoskeletal Provider 04/02/20 08/24/20 Marcelo Artis, PA-C [address] [place] [address] 300 [place] [address] Assigned Musculoskeletal Provider 08/25/20 08/20/21 Rodrigo Man PA-C [address] [facility] [address] [place] [address] Assigned Surgical Provider 08/25/20 11/27/20 Noreen Flores APRN WORKERS COMPENSATION MANAGER 3305 [facility] [place] [address] Assigned PCP 08/05/22 03/16/23 Agatha Null DPM, Podiatry/Foot and Ankle Surgery [address] [place] [address] [place] [address] Assigned Musculoskeletal Provider 11/04/22 Clinic - [facility] 3305 [facility] [place] [id number] Assigned PCP 07/05/23 documented as of this encounter
--- OUTSIDE RECORDS SUMMARY | 2023-10-26 11:44 | XMS_ITS | Encounter Summary ---
Author Name Unknown Organization [place] Address [address] [place] [address] Care Team Providers Care Aircraft Body Repairer Name Role Phone Selma Good APRN TOW DRIVER Primary Care Pro vider Vanda Guerrreo MD Primary Care Provider [phone] Vanda Guerrero MD Unavailable [phone] Jeana-JdNoreen castro APRN, CNP Unavailable Jeana-JdNoreen castro APRN, CNP Unavailable Jeana-JdNoreen castro APRN TOW DRIVER Primary Car e Provider Kalyan Galvan Unavailable Unavailable Lashae Trevino [facility] Unavailable [phone] Eduardo Sharma MD Unavailable Rios Monteiro MD Unavailable [phone] Marcelo Artis-Aleyda Unavailable [phone] Rodrigo Man-C Unavailable [phone] Jeana-JdNoreen castro APRN TOW DRIVER Unavailable Sudha Greene NP Primary Care Provider Agatha NullM, Podiatry /Foot and Ankle Surgery Unavailable [facility] Unavailable Reason for Referral * Referral not Required - Closed Specialty Diagnoses / Procedures Referred By Rylie garcia Referred To Contact Diagnoses Upper back pain Selma Good APRN TOW DRIVER [address] [facility] [place] [address] [facility] [address] [place] [address] Phone: [phone] Referral ID Status Reason Start Date Expiration Date Visits Re quested Visits Authorized [id number] Closed 01/18/2010 01/18/2010 1 1 Comments Coverage of these services is subject to the terms and limitations of your health insurance plan. Please call member services at your health plan with any benefit or coverage questions. [facility] referral to [facility] (Katelyn Colorado M.D.) [phone]. Any CT, MRI or procedures ordered by your specialist must be performed at a [facility] facility OR coordinated by your clinic's referral office at [phone]. If X-rays, CTs or MRIs have been performed, please contact the facility where they were done, to arrange for oyster picker prior to your scheduled appointment. Please bring this referral request to your appointment and present it to your specialist. Reason for Visit * Reason Onset Date Comments Referral 01/17/2010 Encounter Details Date Type Department Care Team (Late st Contact Info) Description 01/17/2010 [facility] Medical Advice [place] [address] [facility] [place] [phone] Selma Good, SEAN TOW DRIVER [address] [facility] [place] [address] Referral Social History Tobacco Use Types Packs/Day [...] CONSULT PLASTIC SURGERY (01/31/2010) Selma Good APRN TOW DRIVER REFERRAL documented in this encounter Visit Diagnoses Diagnosis Upper back pain- Primary Pain in thoracic spine documented in this encounter Additional Health Concerns Infection Onset Date Last Indicated Resolved Time Rule Out COVID-19 08/25/2020 08/25/2020 08/26/2020 3:23 PM CDT Rule Out COVID-19 11/26/2022 11/26/2022 11/27/2022 3:38 PM CDT documented as of this encounter Care Teams Aircraft Body Repairer Relationship Specialty Start Date End Date Selma Good APRN TOW DRIVER [address] [place] [address] [place] [address] PCP - General 04/09/08 04/07/15 Vanda Guerrero MD [address] [place] [address] [place] [address] PCP - General Internal Medicine 04/08/15 01/08/19 Vanda Guerrero MD [address] [place] [address] [place] [address] PCP - Assigned PCP 07/24/16 06/15/18 Noreen Flores APRN TOW DRIVER [address] [place] [address] [place] [address] PCP - Assigned PCP 06/16/18 08/13/18 Noreen Flores APRN TOW DRIVER [address] [place] [address] [place] [address] PCP - General Nurse Practitioner 01/09/19 12/12/21 Sudha Greene NP [address] [address] PCP - General 11/01/22 Noreen Flores APRN TOW DRIVER 3305 [facility] [place] [address] Assigned PCP 06/16/18 05/26/22 Kalyan Galvan Personal Advocate & Liaison (PAL) 08/08/19 04/26/21 Lashae Trevino, [facility] [address] [facility] [address] [place] [id number] Pharmacist Pharmacist 10/14/19 12/01/20 Eduardo Sharma MD [address] [place] [address] [place] [address] Assigned Sleep Provider 04/02/2005/07 [place] [address] [facility] [address] [place] [address] Assigned Musculoskeletal Provider 04/02/20 08/24/20 Marcelo Artis PA-C [address] [place] [address] Assigned Musculoskeletal Provider 08/25/20 08/20/21 Rodrigo Man PA-C [address] [place] [address] [place] [address] Assigned Surgical Provider 08/25/20 11/27/20 Noreen Flores APRN TOW DRIVER 3305 [facility] [place] [address] Assigned PCP 08/05/22 03/16/23 Agatha Null DPM, Podiatry/Foot and Ankle Surgery [address] [place] [address] Assigned Musculoskeletal Provider 11/04/22 Clinic - [facility] [address] [facility] [address] [place] [address] Assigned PCP 07/05/23 documented as of this encounter
--- OUTSIDE RECORDS SUMMARY | 2023-10-26 11:44 | XMS_ITS | Encounter Summary ---
Author Name Unknown Organization [place] Address [address] [place] [address] Care Team Providers Care Marketing Operations Associate Name Role Phone Selma Good APRN SAFETY SITTER Primary Care Pro vider Vanda Guerrero MD Primary Care Provider [phone] Vanda Guerrero MD Unavailable [phone] Jeana-JdNoreen castro APRN, CNP Unavailable Jeana-JdNoreen castro APRN, CNP Unavailable Jeana-JdNoreen castro APRN SAFETY SITTER Primary Car e Provider Kalyan Galvan Unavailable Unavailable Lashae Trevino [facility] Unavailable [phone] Eduardo Sharma MD Unavailable Rios Monteiro MD Unavailable [phone] Marcelo Artis-Aleyda Unavailable [phone] Rodrigo Man-C Unavailable [phone] Jeana-JdNoreen castro APRN SAFETY SITTER Unavailable Sudha Greene NP Primary Care Provider Agatha NullM, Podiatry /Foot and Ankle Surgery Unavailable [facility] Unavailable Reason for Visit * Reason Onset Date Comments Orders 01/17/2010 mammo and U/Ss Encounter Details Date Type Department Care Team (Late st Contact Info) Description 01/17/2010 [facility] [address] [place] [address] [place] [phone] Selma Good APRN SAFETY SITTER [address] [facility] [place] [address] Orders (mammo and U/Ss) Social History Tobacco [...] as of this encounter Care Teams Marketing Operations Associate Relationship Specialty Start Date End Date Selma Good, SEAN SAFETY SITTER [address] [place] [address] [place] [address] PCP - General 04/09/08 04/07/15 Vanda Guerrero MD [address] [place] [address] [place] [address] PCP - General Internal Medicine 04/08/15 01/08/19 Vanda Guerrero MD [address] [place] [address] [place] [address] PCP - Assigned PCP 07/24/16 06/15/18 Noreen Flores APRN SAFETY SITTER [address] [place] [address] [place] [address] PCP - Assigned PCP 06/16/18 08/13/18 Noreen Flores APRN SAFETY SITTER [address] [place] [address] [place] [address] PCP - General Nurse Practitioner 01/09/19 12/12/21 Sudha Greene NP [address] [address] PCP - General 11/01/22 Noreen Flores APRN SAFETY SITTER [address] [place] [address] [place] [address] Assigned PCP 06/16/18 05/26/22 Kalyan Galvan Personal Advocate & Liaison (PAL) 08/08/19 04/26/21 [facility] [address] [place] [address] [place] [address] Pharmacist Pharmacist 10/14/19 12/01/20 Eduardo Sharma MD [address] [address] Assigned Sleep Provider 04/02/2005/07 Rios Monteiro MD [address] [place] [address] Assigned Musculoskeletal Provider 04/02/20 08/24/20 Marcelo Artis, PA-C [address] [place] [address] [place] [address] Assigned Musculoskeletal Provider 08/25/20 08/20/21 Rodrigo Man PA-C [address] [facility] [address] [place] [address] Assigned Surgical Provider 08/25/20 11/27/20 Noreen Flores APRN SAFETY SITTER [address] [facility] [place] [address] Assigned PCP 08/05/22 03/16/23 Agatha Null DPM, Podiatry/Foot and Ankle Surgery [address] [facility] 300 [place] [address] Assigned Musculoskeletal Provider 11/04/22 Clinic - [facility] [address] [facility] [address] [place] [id number] Assigned PCP 07/05/23 documented as of this encounter
--- OUTSIDE RECORDS SUMMARY | 2023-10-26 11:44 | XMS_ITS | Encounter Summary ---
Author Name Unknown Organization [place] Address [address] [place] [address] Care Team Providers Care Photographer Portrait Name Role Phone Selma Good APRN PROSTHETIC AIDE Primary Care Pro vider Vanda Guerrero MD Primary Care Provider [phone] Vanda Guerrero MD Unavailable [phone] Jeana-JdNoreen castro APRN, CNP Unavailable Jeana-JdNoreen castro APRN, CNP Unavailable Jeana-JdNoreen castro APRN PROSTHETIC AIDE Primary Car e Provider Kalyan Galvan Unavailable Unavailable Lashae Trevino [facility] Unavailable [phone] Eduardo Sharma MD Unavailable Rios Monteiro MD Unavailable [phone] Marcelo Artis PA-C Unavailable [phone] Rodrigo Man PA-C Unavailable [phone] Jeana-JdNoreen castro APRN PROSTHETIC AIDE Unavailable Sudha Greene NP Primary Care Provider Agatha NullM, Podiatry /Foot and Ankle Surgery Unavailable [facility] Unavailable Encounter Details Date Type Department Care Team (Late st Contact Info) Description 07/21/2010 [facility] [place] [phone] Selma Good APRN PROSTHETIC AIDE [address] [place] [address] [place] [address] Social History Tobacco Use Types Packs/Day Years [...] documented as of this encounter Care Teams Photographer Portrait Relationship Specialty Start Date End Date Selma Good APRN PROSTHETIC AIDE [address] [place] [address] [place] [address] PCP - General 04/09/08 04/07/15 Vanda Guerrero MD [address] [place] [address] [place] [address] PCP - General Internal Medicine 04/08/15 01/08/19 Vanda Guerrero MD [address] [place] [address] [place] [address]691 PCP - Assigned PCP 07/24/16 06/15/18 Noreen Flores APRN PROSTHETIC AIDE [address] [place] [address] [place] [address] PCP - Assigned PCP 06/16/18 08/13/18 Noreen Flores APRN PROSTHETIC AIDE [address] [place] [address] [place] [address] PCP - General Nurse Practitioner 01/09/19 12/12/21 Sudha Greene NP [address] [address] PCP - General 11/01/22 Noreen Flores APRN PROSTHETIC AIDE [address] [place] [address] [place] [address] Assigned PCP 06/16/18 05/26/22 Kalyan Galvan Personal Advocate & Liaison (PAL) 08/08/19 04/26/21 [facility] [address] [place] [address] [place] [phone] Pharmacist Pharmacist 10/14/19 12/01/20 Eduardo Sharma MD 6363 [facility] [address] [place] [address] Assigned Sleep Provider 04/02/2005/07 [place] [address] [place] [address] Assigned Musculoskeletal Provider 04/02/20 08/24/20 Marcelo Artis PARejiC [address] [place] [address] Assigned Musculoskeletal Provider 08/25/20 08/20/21 Rodrigo Man PA-C [address] [place] [address] Assigned Surgical Provider 08/25/20 11/27/20 Noreen Flores APRN PROSTHETIC AIDE [address] [facility] [place] [address] Assigned PCP 08/05/22 03/16/23 Agatha Null DPM, Podiatry/Foot and Ankle Surgery [address] [place] [place] [address] Assigned Musculoskeletal Provider 11/04/22 [facility] [place] [facility] [address] [facility] DAV[place] [address] Assigned PCP 07/05/23 documented as of this encounter
--- OUTSIDE RECORDS SUMMARY | 2023-10-26 11:44 | XMS_ITS | Encounter Summary ---
Author Name Unknown Organization [facility] Address [address] [place] [address] Care Team Providers Care Marine Propulsion Technician Name Role Phone Selma Good APRN INTERNAL WHOLESALER Primary Care Pro vider Vanda Guerrero MD Primary Care Provider [phone] Vanda Guerrero MD Unavailable [phone] Jeana-JdNoreen castro APRN, CNP Unavailable Jeana-JdNoreen castro APRN, CNP Unavailable Jeana-JdNoreen castro APRN INTERNAL WHOLESALER Primary Car e Provider Kalyan Galvan Unavailable Unavailable Lashae Trevino [facility] Unavailable [phone] Eduardo Sharma MD Unavailable Rios Monteiro MD Unavailable [phone] Marcelo Artis-Aleyda Unavailable [phone] Rodrigo Man-C Unavailable [phone] Jeana-JdNoreen castro APRN INTERNAL WHOLESALER Unavailable Sudha Greene NP Primary Care Provider [phone] Agatha NullM, Podiatry /Foot and Ankle Surgery Unavailable [facility] [facility] Unavailable Reason for Visit * Reason Onset Date Comments Symptoms 03/07/2012 uti Encounter Details Date Type Department Care Team (Late st Contact Info) Description 03/07/2012 [facility] [address] [place] [address] [place] [address] Selma Good, SEAN INTERNAL WHOLESALER [address] [facility] [place] [address] Symptoms (uti) Social History Tobacco Use Types [...] as of this encounter Care Teams Marine Propulsion Technician Relationship Specialty Start Date End Date Selma Good, SEAN INTERNAL WHOLESALER [address] [place] [address] [place] [address] PCP - General 04/09/08 04/07/15 Vanda Guerrero MD [address] [place] [address] [place] [address] PCP - General Internal Medicine 04/08/15 01/08/19 Vanda Guerrero MD [address] [place] [address] [place] [address] PCP - Assigned PCP 07/24/16 06/15/18 Noreen Flores APRN INTERNAL WHOLESALER [address] [place] [address] [place] [address] PCP - Assigned PCP 06/16/18 08/13/18 Noreen Flores APRN INTERNAL WHOLESALER [address] [place] [address] [place] [address] PCP - General Nurse Practitioner 01/09/19 12/12/21 Sudha Greene NP [address] [address] PCP - General 11/01/22 Noreen Flores APRN INTERNAL WHOLESALER [address] [place] [address] [place] [address] Assigned PCP 06/16/18 05/26/22 Kalyan Galvan Personal Advocate & Liaison (PAL) 08/08/19 04/26/21 [facility] [address] [place] [address] [place] [id number] Pharmacist Pharmacist 10/14/19 12/01/20 Eduardo Sharma MD [address] [facility] 103 [place] [address] Assigned Sleep Provider 04/02/2005/07 Rios Monteiro MD [address] [place] [address] [id number] Assigned Musculoskeletal Provider 04/02/20 08/24/20 Marcelo Artis, PA-C [address] [facility] 300 [place] [address] Assigned Musculoskeletal Provider 08/25/20 08/20/21 Rodrigo Man PA-C [address] [facility] 450 [place] [address] Assigned Surgical Provider 08/25/20 11/27/20 Noreen Flores APRN INTERNAL WHOLESALER [address] [facility] [place] [address] Assigned PCP 08/05/22 03/16/23 Agatha Null DPM, Podiatry/Foot and Ankle Surgery [address] [place] 300 [place] [address] Assigned Musculoskeletal Provider 11/04/22 Clinic - [facility] 3[address] [facility] DAV[place] ORDOÑEZ [id number] Assigned PCP 07/05/23 documented as of this encounter
--- OUTSIDE RECORDS SUMMARY | 2023-10-26 11:44 | XMS_ITS | Encounter Summary ---
Author Name Unknown Organization [facility] Address [address] [place] [address] Care Team Providers Care Log Hauler Name Role Phone Selma Good APRN HELP DESK SUPERVISOR Primary Care Pro vider Vanda Guerrero MD Primary Care Provider [phone] Vanda Guerrero MD Unavailable [phone] Jeana-JdNoreen castro APRN, CNP Unavailable Jeana-JdNoreen castro APRN, CNP Unavailable Jeana-JdNoreen castro APRN HELP DESK SUPERVISOR Primary Car e Provider Kalyan Galvan Unavailable Unavailable Lashae Trevino [facility] Unavailable [phone] Eduardo Sharma MD Unavailable Rios Monteiro MD Unavailable [phone] Marcelo Artis PA-C Unavailable [phone] Rodrigo Man PA-C Unavailable [phone] Jeana-JdNoreen castro APRN HELP DESK SUPERVISOR Unavailable Sudha Greene NP Primary Care Provider [phone] Agatha NullM, Podiatry /Foot and Ankle Surgery Unavailable [facility] Unavailable Encounter Details Date Type Department Care Team (Late st Contact Info) Description 04/24/2011 [facility] Medical Advice [place] [id number] [facility] DAV[place] [...] as of this encounter Care Teams Log Hauler Relationship Specialty Start Date End Date Selma Good APRN HELP DESK SUPERVISOR [address] [place] [address] [place] [address] PCP - General 04/09/08 04/07/15 Vanda Guerrero MD [address] [place] [address] [place] [address] PCP - General Internal Medicine 04/08/15 01/08/19 Vanda Guerrero MD [address] [place] [address] [place] [address] PCP - Assigned PCP 07/24/16 06/15/18 Noreen Flores APRN HELP DESK SUPERVISOR [address] [place] [address] [place] [address] PCP - Assigned PCP 06/16/18 08/13/18 Noreen Flores APRN HELP DESK SUPERVISOR 3305 [facility] [place] [address] PCP - General Nurse Practitioner 01/09/19 12/12/21 Sudha Greene NP [address] [address] PCP - General 11/01/22 Noreen Flores APRN HELP DESK SUPERVISOR [address] [place] [address] [place] [address] Assigned PCP 06/16/18 05/26/22 Kalyan Galvan Personal Advocate & Liaison (PAL) 08/08/19 04/26/21 [facility] [address] [place] [address] [place] [address] Pharmacist Pharmacist 10/14/19 12/01/20 Eduardo Sharma MD [address] [place] [address] [place] [address] Assigned Sleep Provider 04/02/2005/07 [place] [address] [facility] [place] 300 [place] [address] Assigned Musculoskeletal Provider 04/02/20 08/24/20 Marcelo Artis PA-C [address] [facility] [place] 300 [place] [address] Assigned Musculoskeletal Provider 08/25/20 08/20/21 Rodrigo Man PA-C [address] [place] 450 [place] [address] Assigned Surgical Provider 08/25/20 11/27/20 Noreen Flores APRN HELP DESK SUPERVISOR 3305 [facility] [place] [address] Assigned PCP 08/05/22 03/16/23 Agatha Null DPM, Podiatry/Foot and Ankle Surgery [address] [place] 300 [place] [id number] Assigned Musculoskeletal Provider 11/04/22 [facility] [address] [facility] [address] [place] [address] Assigned PCP 07/05/23 documented as of this encounter
--- OUTSIDE RECORDS SUMMARY | 2023-10-26 11:44 | XMS_ITS | Encounter Summary ---
Author Name Unknown Organization [place] Address [address] [place] [address] Care Team Providers Care Medical Management Trainer Name Role Phone Selma Good APRN VOLCANOLOGIST Primary Care Pro vider Vanda Guerrero MD Primary Care Provider [phone] Vanda Guerrero MD Unavailable [phone] Jeana-JdNoreen castro APRN, CNP Unavailable Jeana-JdNoreen castro APRN, CNP Unavailable Jeana-JdNoreen castro APRN VOLCANOLOGIST Primary Car e Provider Kalyan Galvan Unavailable Unavailable Lashae Trevino [facility] Unavailable [phone] Eduardo Sharma MD Unavailable Rios Monteiro MD Unavailable [phone] Marcelo Artis PA-C Unavailable [phone] Rodrigo Man PA-C Unavailable [phone] Jeana-JdNoreen castro APRN VOLCANOLOGIST Unavailable Sudha Greene NP Primary Care Provider Agatha NullM, Podiatry /Foot and Ankle Surgery Unavailable [facility] [facility] [...] as of this encounter Care Teams Medical Management Trainer Relationship Specialty Start Date End Date Selma Good APRN VOLCANOLOGIST [address] [place] [address] [place] [address] PCP - General 04/09/08 04/07/15 Vanda Guerrero MD [address] [place] [address] [place] [address] PCP - General Internal Medicine 04/08/15 01/08/19 Vanda Guerrero MD [address] [place] [address] [place] [address] PCP - Assigned PCP 07/24/16 06/15/18 Noreen Flores APRN VOLCANOLOGIST [address] [place] [address] [place] [address] PCP - Assigned PCP 06/16/18 08/13/18 Noreen Flores APRN VOLCANOLOGIST [facility] [place] [address] PCP - General Nurse Practitioner 01/09/19 12/12/21 Sudha Greene NP [address] [address] PCP - General 11/01/22 Noreen Flores APRN VOLCANOLOGIST [address] [facility] [place] [address] Assigned PCP 06/16/18 05/26/22 Kalyan Galvan Personal Advocate & Liaison (PAL) 08/08/19 04/26/21 Lashae Trevino [facility] [address] [place] [address] [place] [phone] Pharmacist Pharmacist 10/14/19 12/01/20 Eduardo Sharma MD [address] [place] [address] [place] 856145 Assigned Sleep Provider 04/02/2005/07 [place] [address] [facility] 300 [place] [address] Assigned Musculoskeletal Provider 04/02/20 08/24/20 Marcelo Artis PA-C [address] [facility] 300 [place] [address] Assigned Musculoskeletal Provider 08/25/20 08/20/21 Rodrigo Man PA-C [address] [place] [address] [place] [address] Assigned Surgical Provider 08/25/20 11/27/20 Noreen Flores APRN VOLCANOLOGIST 3305 [facility] [place] [address] Assigned PCP 08/05/22 03/16/23 Agatha Null DPM, Podiatry/Foot and Ankle Surgery [address] [place] [address] Assigned Musculoskeletal Provider 11/04/22 [facility] 3305 [facility] [place] [address] Assigned PCP 07/05/23 documented as of this encounter
--- OUTSIDE RECORDS SUMMARY | 2023-10-26 11:44 | XMS_ITS | Encounter Summary ---
Author Name Unknown Organization [place] Address [address] [place] [address]68 Care Team Providers Care Clay Thrower Name Role Phone Selma Good APRN NOTCHING PRESS OPERATOR Primary Care Pro vider Vanda Guerrero MD Primary Care Provider [phone] Vanda Guerrero MD Unavailable [phone] Jeana-JdNoreen castro APRN, CNP Unavailable Jeana-JdNoreen castro APRN, CNP Unavailable Jeana-JdNoreen castro APRN NOTCHING PRESS OPERATOR Primary Car e Provider Kalyan Galvan Unavailable Unavailable Lashae Trevino [facility] Unavailable [phone] Eduardo Sharma MD Unavailable Rios Monteiro MD Unavailable [phone] Marcelo Artis PA-C Unavailable [phone] Rodrigo aMn PA-C Unavailable [phone] Jeana-JdNoreen castro APRN NOTCHING PRESS OPERATOR Unavailable Sudha Greene NP Primary Care Provider [phone] Agatha NullM, Podiatry /Foot and Ankle Surgery Unavailable [facility] Unavailable Encounter Details Date Type Department Care Team (Late st Contact Info) Description 07/12/2012 [facility] [place] [phone] Selma Good APRN NOTCHING PRESS OPERATOR [address] [place] [address] [place] [address] Social History Tobacco Use Types Packs/Day Years [...] as of this encounter Care Teams Clay Thrower Relationship Specialty Start Date End Date Selma Good APRN NOTCHING PRESS OPERATOR [address] [place] [address] [place] [address] PCP - General 04/09/08 04/07/15 Vanda Guerrero MD [address] [place] [address] [place] [address] PCP - General Internal Medicine 04/08/15 01/08/19 Vanda Guerrero MD [address] [place] [address] [place] [address] PCP - Assigned PCP 07/24/16 06/15/18 Noreen Flores APRN NOTCHING PRESS OPERATOR [address] [place] [address] [place] [address] PCP - Assigned PCP 06/16/18 08/13/18 Noreen Flores APRN NOTCHING PRESS OPERATOR [address] [place] [address] [place] [address] PCP - General Nurse Practitioner 01/09/19 12/12/21 Sudha Greene, MAURICIO [address] [address] PCP - General 11/01/22 Noreen Flores APRN NOTCHING PRESS OPERATOR [address] [place] [address] [place] [address] Assigned PCP 06/16/18 05/26/22 Kalyan Galvan Personal Advocate & Liaison (PAL) 08/08/19 04/26/21 [facility] [address] [place] [address] [place] [id number] Pharmacist Pharmacist 10/14/19 12/01/20 Eduardo Sharma MD [address] [facility] [place] [address] Assigned Sleep Provider 04/02/2005/07 [place] [address] [place] [address] [place] [address] Assigned Musculoskeletal Provider 04/02/20 08/24/20 Marcelo Artis, PA-C [address] [place] [address] [place] [address] Assigned Musculoskeletal Provider 08/25/20 08/20/21 Rodrigo Man PA-C [address] [place] [address] [place] [address] Assigned Surgical Provider 08/25/20 11/27/20 Noreen Flores APRN NOTCHING PRESS OPERATOR [address] [facility] [place] [address] Assigned PCP 08/05/22 03/16/23 Agatha Null DPM, Podiatry/Foot and Ankle Surgery [address] [place] [address] [place] [address] Assigned Musculoskeletal Provider 11/04/22 Clinic - [facility] 3305 [facility] [place] [address] Assigned PCP 07/05/23 documented as of this encounter
--- OUTSIDE RECORDS SUMMARY | 2023-10-26 11:44 | XMS_ITS | Encounter Summary ---
Author Name Unknown Organization [place] Address [address] [place] [address] Care Team Providers Care Qa Automation Developer Name Role Phone Selma Good APRN THREAD TOOL GRINDER SET UP OPERATOR Primary Care Pro vider Vanda Guerrero MD Primary Care Provider [phone] Vanda Guerrero MD Unavailable [phone] Jeana-JdNoreen castro APRN, CNP Unavailable Jeana-JdNoreen castro APRN, CNP Unavailable Jeana-JdNoreen castro APRN THREAD TOOL GRINDER SET UP OPERATOR Primary Car e Provider Kalyan Galvan Unavailable Unavailable Lashae Trevino [facility] Unavailable [phone] Eduardo Sharma MD Unavailable Rios Monteiro MD Unavailable [phone] Marcelo Artis-Aleyda Unavailable [phone] Rodrigo Man-C Unavailable [phone] Jeana-JdNoreen castro APRN THREAD TOOL GRINDER SET UP OPERATOR Unavailable Sudha Greene NP Primary Care Provider Agatha NullM, Podiatry /Foot and Ankle Surgery Unavailable [facility] [facility] Unavailable Reason for Visit * Reason Onset Date Comments Vaginal Problem 05/24/2011 itchy -worse wit h cream Encounter Details Date Type Department Care Team (Late st Contact Info) Description 05/24/2011 MyC Medical Advice [address] [place] [phone] Selma Good, SECTION LEADER SCREEN PRINTING THREAD TOOL GRINDER SET UP OPERATOR [address]305 [facility] [place] [address] Vaginal Problem (itchy -worse with cream ) [...] documented as of this encounter Care Teams Qa Automation Developer Relationship Specialty Start Date End Date Selma Good, SECTION LEADER SCREEN PRINTING THREAD TOOL GRINDER SET UP OPERATOR [address] [place] [address] [place] [address] PCP - General 04/09/08 04/07/15 Vanda Guerrero MD [address] [place] [address] [place] [address] PCP - General Internal Medicine 04/08/15 01/08/19 Vanda Guerrero MD [address] [place] [address] [place] [address] PCP - Assigned PCP 07/24/16 06/15/18 Noreen Flores APRN THREAD TOOL GRINDER SET UP OPERATOR [address]305 [facility] [place] [address] PCP - Assigned PCP 06/16/18 08/13/18 Noreen Flores APRN THREAD TOOL GRINDER SET UP OPERATOR [address] [place] [address] [place] [address] PCP - General Nurse Practitioner 01/09/19 12/12/21 Sudha Greene NP [address] [address] PCP - General 11/01/22 Noreen Flores APRN THREAD TOOL GRINDER SET UP OPERATOR [address] [place] [address] [place] [address] Assigned PCP 06/16/18 05/26/22 Kalyan Galvan Personal Advocate & Liaison (PAL) 08/08/19 04/26/21 [facility] [address] [place] [address] [place] [address] Pharmacist Pharmacist 10/14/19 12/01/20 Eduardo Sharma MD 6363 [facility] 103 [place] [address] Assigned Sleep Provider 04/02/2005/07 [place] [address] [facility] 300 [place] [address] Assigned Musculoskeletal Provider 04/02/20 08/24/20 Marcelo Artis PA-C [address] [facility] 300 [place] [address] Assigned Musculoskeletal Provider 08/25/20 08/20/21 Rodrigo Man PA-C [address] [facility] 450 [place] [address] Assigned Surgical Provider 08/25/20 11/27/20 Noreen Flores APRN THREAD TOOL GRINDER SET UP OPERATOR 3305 [facility] [place] [id number] Assigned PCP 08/05/22 03/16/23 Agatha Null DPM, Podiatry/Foot and Ankle Surgery [address] [facility] [address] [place] [address] Assigned Musculoskeletal Provider 11/04/22 [facility] 3[address] [facility] [place] [id number] Assigned PCP 07/05/23 documented as of this encounter
--- OUTSIDE RECORDS SUMMARY | 2023-10-26 11:44 | XMS_ITS | Encounter Summary ---
Author Name Unknown Organization [facility] Address [address] [place] [address] Care Team Providers Care Green Chain Worker Name Role Phone Selma Good APRN BIAS BINDING CUTTER Primary Care Pro vider Vanda Guerrero MD Primary Care Provider [phone] Vanda Guerrero MD Unavailable [phone] Jeana-JdNoreen castro APRN, CNP Unavailable Jeana-JdNoreen castro APRN, CNP Unavailable Jeana-JdNoreen castro APRN BIAS BINDING CUTTER Primary Car e Provider Klayan Galvan Unavailable Unavailable Lashae Trevino [facility] Unavailable [phone] Eduardo Sharma MD Unavailable Rios Monteiro MD Unavailable [phone] Mareclo Artis-Aleyda Unavailable [phone] Rodrigo Man-C Unavailable [phone] Jeana-JdNoreen castro APRN BIAS BINDING CUTTER Unavailable Sudha Greene NP Primary Care Provider Agatha NullM, Podiatry /Foot and Ankle Surgery Unavailable [facility] Unavailable Reason for Visit * Reason Onset Date Comments Patient Request 01/26/2010 Encounter Details Date Type Department Care Team (Late st Contact Info) Description 01/26/2010 [facility] [address] [place] [address] [place] [phone] Selma Good APRN BIAS BINDING CUTTER 3305 [facility] [place] [address] Patient Request Social History Tobacco Use Types [...] as of this encounter Care Teams Green Chain Worker Relationship Specialty Start Date End Date Selma Good, SEAN BIAS BINDING CUTTER [address] [place] [address] [place] [address] PCP - General 04/09/08 04/07/15 Vanda Guerrero MD [address] [place] [address] [place] [address] PCP - General Internal Medicine 04/08/15 01/08/19 Vanda Guerrero MD [address] [place] [address] [place] [address] PCP - Assigned PCP 07/24/16 06/15/18 Noreen Flores APRN BIAS BINDING CUTTER [address] [place] [address] [place] [address] PCP - Assigned PCP 06/16/18 08/13/18 Noreen Flores APRN BIAS BINDING CUTTER [address] [place] [address] [place] [address] PCP - General Nurse Practitioner 01/09/19 12/12/21 Sudha Greene NP [address] [address] PCP - General 11/01/22 Noreen Flores APRN BIAS BINDING CUTTER [address] [place] [address] [place] [address] Assigned PCP 06/16/18 05/26/22 Kalyan Galvan Personal Advocate & Liaison (PAL) 08/08/19 04/26/21 Lashae Trevino, [facility] [address] [facility] [place] [address] Pharmacist Pharmacist 10/14/19 12/01/20 Eduardo Sharma MD [address] [facility] 103 [place] [address] Assigned Sleep Provider 04/02/2005/07 [place] [address] [facility] 300 [place] [address] Assigned Musculoskeletal Provider 04/02/20 08/24/20 Marcelo Artis, PA-C [address] [facility] 300 [place] [address] Assigned Musculoskeletal Provider 08/25/20 08/20/21 Rodrigo Man PA-C [address] [facility] 450 [place] [address] Assigned Surgical Provider 08/25/20 11/27/20 Noreen Flores APRN BIAS BINDING CUTTER 3305 [facility] [place] [id number] Assigned PCP 08/05/22 03/16/23 Agatha Null DPM, Podiatry/Foot and Ankle Surgery [address] [facility] [address] [place] [address] Assigned Musculoskeletal Provider 11/04/22 [facility] [place] 3305 [facility] [place] [id number] Assigned PCP 07/05/23 documented as of this encounter
--- OUTSIDE RECORDS SUMMARY | 2023-10-26 11:44 | XMS_ITS | Encounter Summary ---
Author Name Unknown Organization [facility] Address [address] [place] [address] Care Team Providers Care Technical Document Writer Name Role Phone Selma Good APRN CENTER MEDICAL AND LAB DIRECTOR Primary Care Pro vider Vanda Guerrero MD Primary Care Provider [phone] Vanda Guerrero MD Unavailable [phone] Jeana-JdNoreen castro APRN, CNP Unavailable Jeana-JdNoreen castro APRN, CNP Unavailable Jeana-JdNoreen castro APRN CENTER MEDICAL AND LAB DIRECTOR Primary Car e Provider Kalyan Galvan Unavailable Unavailable Lashae Trevino [facility] Unavailable [phone] Eduardo Sharma MD Unavailable Rios Monteiro MD Unavailable [phone] Marcelo Artis PA-C Unavailable [phone] Rodrigo Man PA-C Unavailable [phone] Jeana-JdNoreen castro APRN CENTER MEDICAL AND LAB DIRECTOR Unavailable Sudha Greene NP Primary Care Provider Agatha NullM, Podiatry /Foot and Ankle Surgery Unavailable [facility] Unavailable Encounter Details Date Type Department Care Team (Late st Contact Info) Description 01/11/2010 [facility] Medical Advice [place] [id number] [facility] [place] [address] Alejo Casas Social [...] as of this encounter Care Teams Technical Document Writer Relationship Specialty Start Date End Date Selma Good APRN CENTER MEDICAL AND LAB DIRECTOR [address] [place] [address] [place] [address] PCP - General 04/09/08 04/07/15 Vanda Guerrero MD [address] [place] [address] [place] [address] PCP - General Internal Medicine 04/08/15 01/08/19 Vanda Guerrero MD [address] [place] [address] [place] [address] PCP - Assigned PCP 07/24/16 06/15/18 Noreen Flores APRN CENTER MEDICAL AND LAB DIRECTOR [address] [place] [address] [place] [address] PCP - Assigned PCP 06/16/18 08/13/18 Noreen Flores APRN CENTER MEDICAL AND LAB DIRECTOR [address] [facility] [place] [address] PCP - General Nurse Practitioner 01/09/19 12/12/21 Sudha Greene NP [address] [address] PCP - General 11/01/22 Noreen Flores APRN CENTER MEDICAL AND LAB DIRECTOR [address] [place] [address] [place] [address] Assigned PCP 06/16/18 05/26/22 Kalyan Galvan Personal Advocate & Liaison (PAL) 08/08/19 04/26/[address] [address] [place] [address] [place] [address] Pharmacist Pharmacist 10/14/19 12/01/20 Eduardo Sharma MD [address] [place] [address] [place] [address] Assigned Sleep Provider 04/02/2005/07 [place] [address] [facility] [place] [address] [place] [address] Assigned Musculoskeletal Provider 04/02/20 08/24/20 Marcelo Artis PA-C [address] [facility] [place] [address] [place] [address] Assigned Musculoskeletal Provider 08/25/20 08/20/21 Rodrigo Man PA-C [address] [place] [address] [place] [address] Assigned Surgical Provider 08/25/20 11/27/20 Noreen Flores APRN CENTER MEDICAL AND LAB DIRECTOR [address] [facility] [place] [address] Assigned PCP 08/05/22 03/16/23 Agatha Null DPM, Podiatry/Foot and Ankle Surgery [address] [place] [address] [place] [address]897 Assigned Musculoskeletal Provider 11/04/22 [facility] [place] [facility] [address] [facility] [address] [place] [address] Assigned PCP 07/05/23 documented as of this encounter
--- OUTSIDE RECORDS SUMMARY | 2023-10-26 11:45 | XMS_ITS | Encounter Summary ---
Author Name Unknown Organization [facility] Address [address] [place] [address] Care Team Providers Care Planning Director Name Role Phone Selma Good APRN FINANCIAL SERVICES EDUCATION CONSULTANT Primary Care Pro vider Vanda Guerrero MD Primary Care Provider [phone] Vanda Guerrero MD Unavailable [phone] Jeana-JdNoreen castro APRN, CNP Unavailable Jeana-JdNoreen castro APRN, CNP Unavailable Jeana-JdNoreen castro APRN FINANCIAL SERVICES EDUCATION CONSULTANT Primary Car e Provider Kalyan Galvan Unavailable Unavailable Lashae Trevino [facility] Unavailable [phone] Eduardo Sharma MD Unavailable Rios Monteiro MD Unavailable [phone] Marcelo Artis PA-C Unavailable [phone] Rodrigo Man PA-C Unavailable [phone] Jeana-JdNoreen castro APRN FINANCIAL SERVICES EDUCATION CONSULTANT Unavailable Sudha Greene NP Primary Care Provider [phone] Agatha NullM, Podiatry /Foot and Ankle Surgery Unavailable [facility] Unavailable Encounter [...] as of this encounter Care Teams Planning Director Relationship Specialty Start Date End Date Selma Good APRN FINANCIAL SERVICES EDUCATION CONSULTANT [address] [place] [address] [place] [address] PCP - General 04/09/08 04/07/15 Vanda Guerrero MD [address] [place] [address] [place] [address] PCP - General Internal Medicine 04/08/15 01/08/19 Vanda Guerrero MD [address] [place] [address] [place] [address] PCP - Assigned PCP 07/24/16 06/15/18 Noreen Flores APRN FINANCIAL SERVICES EDUCATION CONSULTANT [address] [place] [address] [place] [address] PCP - Assigned PCP 06/16/18 08/13/18 Noreen Flores APRN FINANCIAL SERVICES EDUCATION CONSULTANT [address] [place] [address] [place] [address] PCP - General Nurse Practitioner 01/09/19 12/12/21 Sudha Greene NP [address] [address] PCP - General 11/01/22 Noreen Flores APRN FINANCIAL SERVICES EDUCATION CONSULTANT [address] [facility] [place] [address] Assigned PCP 06/16/18 05/26/22 Kalyan Galvan Personal Advocate & Liaison (PAL) 08/08/19 04/26/21 Lashae Trevino, [facility] [address] [facility] [place] [address] Pharmacist Pharmacist 10/14/19 12/01/20 Eduardo Sharma MD [address] [place] [address] [place] [id number] Assigned Sleep Provider 04/02/2005/07 [place] [address] [facility] [address] [place] [address] Assigned Musculoskeletal Provider 04/02/20 08/24/20 Marcelo Artis PA-C [address] [place] [address] [place] [address] Assigned Musculoskeletal Provider 08/25/20 08/20/21 Rodrigo Man PA-C [address] [place] [address] [place] [address] Assigned Surgical Provider 08/25/20 11/27/20 Noreen Flores APRN FINANCIAL SERVICES EDUCATION CONSULTANT [address] [facility] [place] [address] Assigned PCP 08/05/22 03/16/23 Agatha Null DPM, Podiatry/Foot and Ankle Surgery [address] [place] [address] Assigned Musculoskeletal Provider 11/04/22 Clinic - [place] [facility] [address] [facility] [place] [id number] Assigned PCP 07/05/23 documented as of this encounter
--- OUTSIDE RECORDS SUMMARY | 2023-10-26 11:45 | XMS_ITS | Clinical Summary ---
Author Name Unknown Organization [facility] Address [address] [place] [address] Care Team Providers Care Civil Geotechnical Engineer Name Role Phone Unassigned, Provider Primary Care Provider Unava ilable Source Comments You are receiving this document as you are listed as the primary care provider,follow-up provider, or the patient has been referred to you for consultation.This is in compliance with the Medicare andPremier Healthcaid EHR Incentive Program,which states Providers who transition their patient to another setting of careor provider of care or refers their patient to another provider of care shouldprovide summary care record for each transition of care or referral. [email or web address] Allergies Active Allergy Reactions Criticality Noted Date [...] 03/09/2011,04/08/2010, 8 Influenza IIV4 (Quadrivalent ) 0.5mL (93769) 06/12/2017,03/23/2016,04/08/2015, 013 PPSV23 (Pneumovax) 10/06/2014 Pfizer Monovalent [...] Comments Blood Pressure 120/62 05/25/2021 11:09 AM PARTS INTERPRETER Pulse 59 05/25/2021 11:09 AM PARTS INTERPRETER Temperature 36.7 ??C (98.1 ??F) 05/25/2021 1 1:09 AM PARTS INTERPRETER Respiratory Rate 16 08/23/2007 1:13 PM CDT Oxygen Saturation 97% 08/23/2007 1:13 PM CDT Inhaled Oxygen Concentration - - Weight 78.8 kg (173 lb 12.8 oz) 021 11:09 AM PARTS INTERPRETER Height 160 cm (5' 3) 08/23/2007 1:13 [...] this topic Medical Devices Implanted Type Area Ep Specialist Device Identifier Shelf Expiration Date Model / Serial / Lot Kit Infuse Bone Graft Sm - [id number] Implanted:Qty : 1 on 04/15/2007 at [facility] Left: BACK [employer] [id number] / / [id number] Bone Canc Crushed 60cc - [id number] Implanted:Qty : 1 on 04/15/2007 at [facility] Left: BACK [place]on 72394 / OTS [id number] / Device Cage Ray Thrd 12x26 - [id number] Implanted:Qty : 2 on 04/15/2007 at [facility] DEVICE Left: BACK Henna 7-1226 / / [id number] Cage Ray 51g20mw - [id number] Implanted:Qty : 1 on 04/15/2007 at [facility] Left: BACK Henna 05/11/2008 7-1426 / / [id number] Procedures Procedure Name Priority Date/Time Associated Diagnosis [...] 8:33 AM CDT) Cholesterol 188 <200 mg/dl [facility] Triglyceride 95 <200 mg/dl [facility] HDL 46 >35 mg/dl [facility] LDL, Calc. 123 mg/dl [facility] Hours Fasting 12 hours [facility] 10/07/2005 8:33 AM CDT 10/07/2005 8:34 AM CDT Yun Flynn MD LAB_1 Performing Organization Address City/State/[facility] Phone Number [facility] [address] [place] [phone] * PAP TEST, ROUTINE (10/02/2005 12:00 AM CDT) Cytology, Pap (NOTE) Shells Inspector Cytology Report Patient Name: MEGAN CHOI Taken: [...] and less commonly, endometrial/uterin e abnormalities. ? [facility]/10/13/2005 Electronically Signed Out By ? Kelly Elmore MD ([id number]) Rakel Valle, ??CT (ASCP) ?Pap Smear History ?Date of Last Menstrual Period: ? 09/22/05 ?Contraceptive History: ?Not Stated/Unknown ?Other Clinical Conditions: ?LAST PAP: N/A HPV reflex testing requested with interpretation of ASCUS ? [facility] 10/02/2005 10/06/2005 9:5 8 AM CDT Yun Flynn MD LAB_1 [place], [place] [phone] * MAMMOGRAM, SCREENING (05/15/2003) Anatomical Region Laterality Modality Breast Other Narrative Transcriptions Dusty Gonsalves - 05/15/2003 12:00 AM CSTCLINICAL DATA: Screening. EXAMINATION: Bilateral mammogram, 05/15/03. ACR BIRADS CATEGORY 1 - NEGATIVE MAMMOGRAM. FINDINGS: Nothing for malignancy. Dusty Gonsalves MD 10:42 A cc: AUDREY Moffett Radiology SP Blank Perez EXECUTIVE SECRETARY, ENGLISH DIVISION CHAIR RAD_BI from Last 3 Months or Most Recently Relevant to Health Maintenance Advance Directives * Full Code (Latest Code Status on File) Date Activated Date Inactivated Comments 04/15/2007 8:03 AM 04/19/2007 8:53 PM Care Teams Civil Geotechnical Engineer Relationship Specialty Start Date End Date Unassigned, Provider [address] [place] [address] PCP - General 09/18/08
--- OUTSIDE RECORDS SUMMARY | 2023-10-26 11:45 | XMS_ITS | Encounter Summary ---
Author Name Unknown Organization [facility] Address [address] [place] [address] Care Team Providers Care Accountant Auditor Name Role Phone Unassigned, Provider Primary Care Provider Unava ilable Encounter Details Date Type Department Care Team (Late st Contact Info) Description 08/23/2004 [facility] [address] [place] [address] Gavin Justice MD [address] [place] [address] [id number] Social History Tobacco Use Types Packs/Day Years [...] * Jerome Garg - 08/23/2004 12:00 AM PEST LOCATOR DATE OF SURGERY: August 23, 2004. STAFF [...] Justice MD Transcribed: 08/24/2004 07:37:56 Doc #: [id number] cc: Jose Colin, DO, Referring DO NOT SIGN UNLESS PRESENT FOR PROCEDURE I attest that I was present for and participated in the ma portions of this procedure(s) in compliance with the Health Care Financing Administration Teaching Physician Guidelines. Signed Date Regions Staff Physician 1 Page 2 Patient Name: PADMINI CHOI Visit Date: 08/23/2004 OUTPATIENT OPERATIVE REPORT CONFIDENTIAL MEDICAL RECORD [address] [address] Page 1 Patient: PADMINI CHOI Location: PAIN N: [id number] Date of : 1965 Visit Date: 08/23/2004 OUTPATIENT OPERATIVE REPORT documented in this encounter Plan of Treatment Not on file documented as of this encounter Visit Diagnoses Not on filedocumented in this encounter Care Teams Accountant Auditor Relationship Specialty Start Date End Date Unassigned, Provider [address] [place] [address] PCP - General 09/18/08 documented as of this encounter
--- OUTSIDE RECORDS SUMMARY | 2023-10-26 11:45 | XMS_ITS | Encounter Summary ---
Author Name Unknown Organization [facility] Address [address], [place] [address] Care Team Providers Care Endband Sizer Name Role Phone Unassigned, Provider Primary Care Provider Unava ilable Encounter Details Date Type Department Care Team (Latest Contact Info) Description 07/26/2004 [facility] Gavin Justice MD [address] [place] [address] Social History Tobacco Use Types Packs/Day Years [...] * Jerome Garg - 07/26/2004 12:00 AM SLIVER LAPPER DATE OF SURGERY: 07/26/2004 STAFF SURGEON: Gavin [...] Therefore, she is referred to [facility] for evaluation for epidural steroid [...] Justice MD Transcribed: 07/26/2004 14:26:15 Doc #: [id number] cc: Jose Colin DO, Primary/Referring DO NOT SIGN UNLESS PRESENT FOR PROCEDURE I attest that I was present for and participated in the ma portions of this procedure(s) in compliance with the Health Care Financing Administration Teaching Physician Guidelines. Signed Date Regions Staff Physician 1 Page 2 Patient Name: PADMINI CHOI Visit Date: 07/26/2004 OUTPATIENT OPERATIVE REPORT CONFIDENTIAL MEDICAL RECORD [facility] [address] [place] [address] Page 1 Patient: PADMINI CHOI [id number] Date of : 1965 Visit Date: 07/26/2004 OUTPATIENT OPERATIVE REPORT documented in this encounter Plan of Treatment Not on file documented as of this encounter Visit Diagnoses Not on filedocumented in this encounter Care Teams Endband Sizer Relationship Specialty Start Date End Date Unassigned, Provider [address] [place] [address] PCP - General 09/18/08 documented as of this encounter
--- OUTSIDE RECORDS SUMMARY | 2023-10-26 11:45 | XMS_ITS | Encounter Summary ---
Author Name Unknown Organization [facility] Address [address] [place] [address] Care Team Providers Care Cone Machine Feeder Name Role Phone Selma Good APRN FELLING MACHINE OPERATOR Primary Care Pro vider Vanda Guerrero MD Primary Care Provider [phone] Vanda Guerrero MD Unavailable [phone] Jeana-JdNoreen castro APRN, CNP Unavailable Jeana-JdNoreen castro APRN, CNP Unavailable Jeana-JdNoreen castro APRN FELLING MACHINE OPERATOR Primary Car e Provider Kalyan Galvan Unavailable Unavailable Lashae Trevino [facility] Unavailable [phone] Eduardo Sharma MD Unavailable Rios Monteiro MD Unavailable [phone] Marcelo Artis-Aleyda Unavailable [phone] Rodrigo Man-C Unavailable [phone] Jeana-JdNoreen castro APRN FELLING MACHINE OPERATOR Unavailable Sudha Greene NP Primary Care Provider Agatha NullM, Podiatry /Foot and Ankle Surgery Unavailable [facility] Unavailable Reason for Referral * Referral not Required - Closed Specialty Diagnoses / Procedures Referred By Rylie t Referred To Contact Diagnoses Migraine headaches Selma Good APRN FELLING MACHINE OPERATOR [address] [facility] [place] [address] [facility] [address] [place] [address] Referral ID Status Reason Start Date Expiration Date Visits Re quested Visits Authorized [id number] Closed 09/18/2008 06/10/2011 1 1 Comments Coverage of these services is subject to the terms and limitations of your health insurance plan. Please call member services at your health plan with any benefit or coverage questions. [facility] referral to [facility] at [phone]. . Any CT, MRI or procedures ordered by your specialist must be performed at a [facility] facility OR coordinated by your clinic's referral office at [phone]. If X-rays, CTs or MRIs have been performed, please contact the facility where they were done, to arrange for pick up worker prior to your scheduled appointment. Please bring this referral request to your appointment and present it to your specialist. Reason for Visit * Reason Onset Date Comments Medication Request 09/17/2008 migraine med Encounter Details Date Type Department Care Team (Late st Contact Info) Description 09/17/2008 [facility] Medical Advice [facility] [address] [facility] [place] [address] Selma Good, SEAN FELLING MACHINE OPERATOR [address] [facility] [place] [address] Medication Request (migraine med) Social History Tobacco [...] sent to patient with phone number for [facility]. Ivette Allan M.A. * Telephone Encounter - Selma Good - 09/18/2008 8:18 AM CDT It appears in my note from when I saw her, I recommended referral to neuro, which she declined at that time. It appears imitrex 'knocked her out.' I would recommend [facility] neurology. documented in this encounter Plan of Treatment Not on file documented as of this encounter Procedures Procedure Name Priority Date/Time Associated Diagnosis Comments [facility] CONSULT NEUROLOGY Routine 11/15/2010 Migraine headaches documented in this encounter Results * CONSULT NEUROLOGY (11/15/2010) Selma Good SUPERVISOR [employer] FELLING MACHINE OPERATOR REFERRAL documented in this encounter [...] as of this encounter Care Teams Cone Machine Feeder Relationship Specialty Start Date End Date Selma Good SUPERVISOR [employer]ER [employer]ARM FELLING MACHINE OPERATOR [address] [facility] [place] [address] PCP - General 04/09/08 04/07/15 Vanda Guerrero MD [address] [facility] [place] [address] PCP - General Internal Medicine 04/08/15 01/08/19 Vanda Guerrero MD [address] [place] [address] [place] [address] PCP - Assigned PCP 07/24/16 06/15/18 Noreen Flores APRN FELLING MACHINE OPERATOR [address] [place] [address] [place] [address] PCP - Assigned PCP 06/16/18 08/13/18 Noreen Flores APRN FELLING MACHINE OPERATOR [address] [place] [address] [place] [address] PCP - General Nurse Practitioner 01/09/19 12/12/21 Sudha Greene, MA[place] [address] [address] PCP - General 11/01/22 Noreen Flores APRN FELLING MACHINE OPERATOR [address] [place] [address] [place] [address] Assigned PCP 06/16/18 05/26/22 Kalyan Galvan Personal Advocate & Liaison (PAL) 08/08/19 04/26/21 Lashae Trevino, [facility] [address] [facility] [place] [address] Pharmacist Pharmacist 10/14/19 12/01/20 Eduardo Sharma MD [address] [place] [address] [place] [address] Assigned Sleep Provider 04/02/2005/07 [place] [address] [place] [address] Assigned Musculoskeletal Provider 04/02/20 08/24/20 Marcelo Artis PA-C [address] [facility] [address] [place] [address] Assigned Musculoskeletal Provider 08/25/20 08/20/21 Rodrigo Man PA-C [address] [facility] [address] [place] [address] Assigned Surgical Provider 08/25/20 11/27/20 Noreen Flores APRN FELLING MACHINE OPERATOR [address] [place] [address] [place] [address] Assigned PCP 08/05/22 03/16/23 Agatha Null DPM, Podiatry/Foot and Ankle Surgery [address] [place] [address] [facility] [address] [place] [address] Assigned Musculoskeletal Provider 11/04/22 [facility] [address] [facility] [place] [id number] Assigned PCP 07/05/23 documented as of this encounter
== END 2023-10-26 11:37 | disposition home or self-care (01) ==
PROVIDERS: PCP Nurse Practitioner Family; Visit Provider Nurse Practitioner Family
DX: D35.00 Benign neoplasm of unspecified adrenal gland (principal)
CPT/HCPCS: 82024; 82533

== ENCOUNTER 2023-11-02 07:04 | Outpatient (CLI) | payer BC, SELFPAY ==
--- OUTSIDE RECORDS SUMMARY | 2023-11-02 07:06 | XMS_ITS | Clinical Summary ---
Author Organization [facility] Address [address] [place] [address] Care Team Providers Care Upper Trimmer Name Role Phone Unavailable Primary Care Provider Unavailabl e Source Comments Patient records contain information from all sites at [facility]. For routine questions regarding patient records, call [phone] during business hours, M-F 8:00 AM - 5:00 PM Central Time. Record requests for emergency care only can be directed to [phone] at any time.[facility] Allergies Active Allergy Reactions Criticality Noted [...] TO DIRECT LDL Routine 08/08/2019 10:17 AM MANUFACTURING QUALITY MANAGER BI BREAST DIAGNOSTIC BILATERAL WITH TOMOSYNTHESIS Routine 09/30/2015 2:11 PM CDT from Last 3 Months or Most Recently Relevant to Health Maintenance
--- OUTSIDE RECORDS SUMMARY | 2023-11-02 07:06 | XMS_ITS | Clinical Summary ---
Author Organization [facility] Address [place], [place] [address] Care Team Providers Care Hoof Trimmer Name Role Phone Sudha Greene NP Primary Care Provider [phone] Allergies Active Allergy Reactions Criticality Noted Date [...] CDT Oxygen Saturation 97% 08/12/2020 6:13 PM [facility] Inhaled Oxygen Concentration - - Weight 79.4 [...] 16 Negative Negative 11/04/2021 10:35 AM CDT [facility] TRAL LABORATORY TYPE 18 Negative Negative 11/04/2021 10:35 AM CDT [facility] TRAL LABORATORY OTHER HIGH RISK TYPES Negative Negative 11/04/2021 10:35 AM CDT [facility] TRA LABORATORY Tissue (Other) Client Collect / Unknown 10/14/2021 10:54 AM CDT 11/02/2021 5:19 PM CDT Narrative [facility] - 11/04/2021 10:35 AM CDT HPV types 16, 18, 31, 33, 35, 39, 45, 51, 52, 56, 58, 59, 66 and 68 DNA were undetectable or below the pre-set threshold. Methodology: Mosso Basilio 4800 HPV Test Doctor Unknown MICROBIOLOGY [facility] [address] [place] [address], from Last 3 Months or Most Recently Relevant to Health Maintenance Care Teams Hoof Trimmer Relationship Specialty Start Date End Date Sudha Greene NP [address] [place] [address] [place] vin[place] [address] PCP - General Emergency Medicine 03/27/22
--- OUTSIDE RECORDS SUMMARY | 2023-11-02 07:07 | XMS_ITS | Encounter Summary ---
Author Organization [place] Address [address] [place] [address] Care Team Providers Care Fisher Purse Seine Name Role Phone Noreen Flores APRN PAPERBOARD BOX MAKER Unavailable Noreen Flores APRN PAPERBOARD BOX MAKER Primary Car e Provider Kalyan Galvan Unavailable Unavailable Lashae Trevino [facility] Unavailable [phone] Eduardo Sharma MD Unavailable Marcelo Artis PA-C Unavailable [phone] Rodrigo Man PA-C Unavailable [phone] Noreen Flores APRN PAPERBOARD BOX MAKER Unavailable Sudha Greene NP Primary Care Provider Agatha NullM, Podiatry /Foot and Ankle Surgery Unavailable [facility] [place] [facility] Unavailable Encounter Details Date Type Department [...] Answer Date Recorded PHQ-2 Score 2 07/25/2018 [facility] [place] of Occupat ional Health - Occupational Stress [...] as of this encounter Care Teams Fisher Purse Seine Relationship Specialty Start Date End Date Noreen Flores APRN PAPERBOARD BOX MAKER [address] [place] [address] [place] [address] PCP - General Nurse Practitioner 01/09/19 12/12/21 Sudha Greene NP [address] [address] PCP - General 11/01/22 Noreen Flores APRN PAPERBOARD BOX MAKER [address] [place] [address] [place] [address] Assigned PCP 06/16/18 05/26/22 Kalyan Galvan Personal Advocate & Liaison (PAL) 08/08/19 04/26/21 [facility] [address] [place] [address] [place] [address] Pharmacist Pharmacist 10/14/19 12/01/20 Eduardo Sharma MD [address] [place] [address] Assigned Sleep Provider 04/02/2005/07 Marcelo Artis PA-C [address] [place] [address] [address] [place] [address] Assigned Musculoskeletal Provider 08/25/20 08/20/21 Rodrigo Man PA-C [address] [place] [address] Assigned Surgical Provider 08/25/20 11/27/20 Noreen Flores APRN PAPERBOARD BOX MAKER [address] [facility] [place] [address] Assigned PCP 08/05/22 03/16/23 Agatha Null DPM, Podiatry/Foot and Ankle Surgery [address] [place] [address] Assigned Musculoskeletal Provider 11/04/22 Clinic - [place] [place] [address] [facility] [place] [address] Assigned PCP 07/05/23 documented as of this encounter
--- OUTSIDE RECORDS SUMMARY | 2023-11-02 07:07 | XMS_ITS | Encounter Summary ---
Author Organization [place] Address [address] [place] [address] Care Team Providers Care Maker Up Folding Name Role Phone Noreen Flores APRN EDUCATION FACULTY MEMBER Unavailable Noreen Flores APRN EDUCATION FACULTY MEMBER Primary Car e Provider Kalyan Galvan Unavailable Unavailable Lashae Trevino [facility] Unavailable Eduardo Sharma MD Unavailable Marcelo Artis PA-C Unavailable Rodrigo Man PA-C Unavailable [phone] Noreen Flores APRN EDUCATION FACULTY MEMBER Unavailable Sudha Greene NP Primary Care Provider Agatha Null DPM, Podiatry /Foot and Ankle Surgery Unavailable Clinic - [facility] [place] Unavailable Reason for Visit * Reason Onset Date Comments Refill Request 09/24/2020 zolpidem (AMBIEN ) 5 MG tablet Encounter Details Date Type Department Care Team (Late st Contact Info) Description 09/24/2020 Iraj Moya [facility] [place] [address] [facility] [address] [place] [address] Noreen Flores APRN EDUCATION FACULTY MEMBER [address] [facility] [place] [address] Refill Request (zolpidem [...] Answer Date Recorded PHQ-2 Score 2 07/25/2018 [facility] [place] of Occupat ional Health - Occupational Stress [...] documented as of this encounter Care Teams Maker Up Folding Relationship Specialty Start Date End Date Noreen Flores APRN EDUCATION FACULTY MEMBER [address] [place] [address] [place] [address] PCP - General Nurse Practitioner 01/09/19 12/12/21 Sudha Greene, MAURIC[place] [address] [address] PCP - General 11/01/22 Noreen Flores APRN EDUCATION FACULTY MEMBER [address] [place] [address] [place] [address] Assigned PCP 06/16/18 05/26/22 Kalyan Galvan Personal Advocate & Liaison (PAL) 08/08/19 04/26/21 Lashae Trevino [facility] [address] [place] [address] Pharmacist Pharmacist 10/14/19 12/01/20 Eduardo Sharma MD [address] [place] [address] Assigned Sleep Provider 04/02/2005/07 Marcelo Artis PA-C [address] [address] Assigned Musculoskeletal Provider 08/25/20 08/20/21 Rodrigo Man PA-C [address] [address] Assigned Surgical Provider 08/25/20 11/27/20 Noreen Flores APRN CNP [address] [place] [address] [place] [address] Assigned PCP 08/05/22 03/16/23 Agatha Null DPM, Podiatry/Foot and Ankle Surgery [address] [place] [address] [address] [place] [address] Assigned Musculoskeletal Provider 11/04/22 [facility] [place] [place] [facility] [address] [place] [address] [place] [id number] Assigned PCP 07/05/23 documented as of this encounter
--- OUTSIDE RECORDS SUMMARY | 2023-11-02 07:07 | XMS_ITS | Encounter Summary ---
Author Organization [place] Address [address] [place] [address] Care Team Providers Care Bee Robber Name Role Phone Noreen Flores APRN RETAIL SUPERVISOR Unavailable Noreen Flores APRN RETAIL SUPERVISOR Primary Car e Provider Kalyan Galvan Unavailable Unavailable Lashae Trevino [facility] Unavailable [phone] Eduardo Sharma MD Unavailable Marcelo Artis PA-C Unavailable [phone] Rodrigo Man PA-C Unavailable [phone] Noreen Flores APRN RETAIL SUPERVISOR Unavailable Sudha Greene NP Primary Care Provider Agatha NullM, Podiatry /Foot and Ankle Surgery Unavailable Clinic - [facility] [place] Unavailable Encounter Details Date Type Department Care Team (Late st Contact Info) Description 10/20/2020 Myra Moya [facility] [address] [facility] [address] [place] [address] [place] [...] Answer Date Recorded PHQ-2 Score 2 07/25/2018 [facility] of Occupat ional Health - Occupational [...] documented as of this encounter Care Teams Bee Robber Relationship Specialty Start Date End Date Noreen Flores APRN RETAIL SUPERVISOR [facility] [facility] [place] [address] PCP - General Nurse Practitioner 01/09/19 12/12/21 Sudha Greene, MAURICIO [address] [address] PCP - General 11/01/22 Noreen Flores APRN RETAIL SUPERVISOR [address] [place] [address] [place] [address] Assigned PCP 06/16/18 05/26/22 Kalyan Galvan Personal Advocate & Liaison (PAL) 08/08/19 04/26/21 Lashae Trevino [facility] [address] [facility] [place] [address] Pharmacist Pharmacist 10/14/19 12/01/20 Eduardo Sharma MD [address] [place] [address] Assigned Sleep Provider 04/02/2005/07 Marcelo Artis PA-C [address] [facility] [address] [place] [address] Assigned Musculoskeletal Provider 08/25/20 08/20/21 Rodrigo Man PA-C [address] [place] [address] Assigned Surgical Provider 08/25/20 11/27/20 Noreen Flores APRN RETAIL SUPERVISOR [address] [facility] [place] [address] Assigned PCP 08/05/22 03/16/23 Agatha Null DPM, Podiatry/Foot and Ankle Surgery [address] [place] [address] Assigned Musculoskeletal Provider 11/04/22 Clinic - [place] [address] [facility] [place] [id number] Assigned PCP 07/05/23 documented as of this encounter
--- OUTSIDE RECORDS SUMMARY | 2023-11-02 07:07 | XMS_ITS | Encounter Summary ---
Author Organization [place] Address [address] [place] [address] Care Team Providers Care Possum Trapper Name Role Phone Noreen Flores APRN SOAKING PITS SUPERVISOR Unavailable Noreen Flores APRN SOAKING PITS SUPERVISOR Primary Car e Provider Kalyan Gavlan Unavailable Unavailable Eduardo Sharma MD Unavailable Marcelo Artis PA-C Unavailable Noreen Flores APRN SOAKING PITS SUPERVISOR Unavailable Sudha Greene NP Primary Care Provider Agatha NullM, Podiatry /Foot and Ankle Surgery Unavailable [facility] - [place] [facility] Unavailable Encounter Details Date Type Department Care Team (Late st Contact Info) Description 02/28/2021 MyC Medical Advice [facility] [address] [facility] [address] [place] [phone] [place] Social History Tobacco Use Types [...] Answer Date Recorded PHQ-2 Score 0 11/10/2020 [facility] of Occupat ional Health - Occupational [...] documented as of this encounter Care Teams Possum Trapper Relationship Specialty Start Date End Date Noreen Flores APRN SOAKING PITS SUPERVISOR [address] [place] [address] [place] [address] PCP - General Nurse Practitioner 01/09/19 12/12/21 Sudha Greene NP [facility] - [address] [address] PCP - General 11/01/22 Noreen Flores APRN SOAKING PITS SUPERVISOR [address] [place] [address] [place] [address] Assigned PCP 06/16/18 05/26/22 Kalyan Galvan Personal Advocate & Liaison (PAL) 08/08/19 04/26/21 Eduardo Sharma MD [address] [address] Assigned Sleep Provider 04/02/2005/07 Marcelo Artis PA-C [address] [address] Assigned Musculoskeletal Provider 08/25/20 08/20/21 Noreen Flores APRN SOAKING PITS SUPERVISOR [address] [place] [address] [place] [address] Assigned PCP 08/05/22 03/16/23 Agatha Null DPM, Podiatry/Foot and Ankle Surgery [address] [place] [facility] [address] [place] [address] Assigned Musculoskeletal Provider 11/04/22 [facility] [place] [address] [place] [address] Assigned PCP 07/05/23 documented as of this encounter
--- OUTSIDE RECORDS SUMMARY | 2023-11-02 07:07 | XMS_ITS | Referral Summary ---
Author Organization [place] Address [address] [place] [address] Care Team Providers Care Nursing Education Specialist Name Role Phone Sudha Greene NP Primary Care Provider Agatha Null DPM, Podiatry /Foot and Ankle Surgery Unavailable [facility] Unavailable Allergies Active Allergy Reactions Criticality [...] sprayIndications:Al lergic rhinitis, unspecified seasonality, unspecified trigger [place] 1-2 sprays into both nostrils daily 16 [...] visit Family history of ND (myocardial infarction) 08/2007 Overview: At early age, father ND at [...] Friends and Family Patient declined 08/08/2019 Attends Shinto Services Patient declined 07/13 Active Member of [...] Answer Date Recorded PHQ-2 Score 0 11/10/2020 [facility] [place] of Occupat ional Health - Occupational Stress [...] Comments Blood Pressure 128/80 05/11/2023 1:07 PM CORPORATE REPRESENTATIVE Pulse 87 02/26/2023 3:58 PM CDT Temperature 36.2 ??C (97.2 ??F) 02/26/2023 3:58 PM CD T Respiratory Rate 12 02/26/2023 3:13 PM CDT Oxygen Saturation 95% 02/26/2023 4:00 PM CDT Inhaled Oxygen Concentration - - Weight 87.1 kg (192 lb) 05/11/2023 1:07 PM CORPORATE REPRESENTATIVE Height 156 cm (5' 1.42) 02/26/2023 11:19 AM CDT Body Mass Index 35.79 02/26/2023 11:19 AM CDT Plan of Treatment Not on file Procedures Procedure Name Priority Date/Time Associated Diagnosis Comments COMPREHENSIVE METABOLIC PANEL Routine 11/10/2020 2:29 PM CDT Polyarthralgia EYE EXAM - HIM SCAN 05/17/2020 1 2:00 AM CORPORATE REPRESENTATIVE HEMOGLOBIN A1C Routine 01/13/2020 8:55 AM CDT Type 2 diabetes mellitus with complication, without long-term current use of insulin (H) FECAL COLORECTAL CANCER SCREEN FIT Routine 01/12/2020 8:00 AM CDT Health care maintenance ALBUMIN RANDOM URINE QUANTITATIVE Routine 08/08/2019 10:17 AM CORPORATE REPRESENTATIVE Routine general medical examination at a health care facility LIPID REFLEX TO DIRECT LDL PANEL Routine 08/08/2019 10:17 AM CORPORATE REPRESENTATIVE Routine general medical examination at a health [...] TYPES DNA CERVICAL Routine 05/03/2016 12:17 PM CORPORATE REPRESENTATIVE Cervical cancer screening PAP IMAGED THIN LAYER SCREEN Routine 05/03/2016 12:00 AM CORPORATE REPRESENTATIVE Cervical cancer screening C FOOT EXAM Routine 10/06/2014 9:47 AM CDT Type 2 diabetes, HbA1C goal < 7% (H) from Last 3 Months or Most Recently Relevant to Health Maintenance Results * (ABNORMAL) Comprehensive metabolic panel (11/10/2020 2:29 PM CDT) Sodium 142 133 - 144 mmol/L 11/10/2020 7:51 PM CDT [facility] Potassium 4.0 3.4 - 5.3 mmol/L 11/10/2020 7:51 PM CDT [facility] Chloride 112(H) 94 - 109 mmol/L 11/10/2020 7:51 PM CDT [facility] Carbon Dioxide 27 20 - 32 mmol/L 11/10/2020 7:58 PM CDT [facility] Anion Gap 4 3 - 14 mmol/L 11/10/2020 7:58 PM CDT [facility] Glucose 96 70 - 99 mg/dL 11/10/2020 7:58 PM CDT [facility] Urea Nitrogen 14 7 - 30 mg/dL 11/10/2020 7:58 PM T [facility] Creatinine 0.74 0.52 - 1.04 mg/dL 11/10/2020 7:58 PM T [facility] GFR Estimate >90 >60 mL/min/{1 .73_m2} 11/10/2020 7:58 PM T [facility] Comment: Non GFR Calc Starting 05/28/2018, serum creatinine based estimated GFR (eGFR) will be calculated using the Chronic Kidney Disease Epidemiology Collaboration (CKD-EPI) equation. GFR Estimate If Black >90 >60 mL/min/{1 .73_m2} 11/10/2020 7:58 PM T [facility] Comment: GFR Calc Starting 05/28/2018, serum creatinine based estimated GFR (eGFR) will be calculated using the Chronic Kidney Disease Epidemiology Collaboration (CKD-EPI) equation. Calcium 9.3 8.5 - 10.1 mg/dL 11/10/2020 7:58 PM CDT [facility] Bilirubin Total 0.6 0.2 - 1.3 mg/dL 11/10/2020 8:01 PM CDT [facility] Albumin 3.6 3.4 - 5.0 g/dL 11/10/2020 8:01 PM T [facility] Protein Total 7.2 6.8 - 8.8 g/dL 11/10/2020 8:01 PM CDT [facility] Alkaline Phosphatase 143 40 - 150 U/L 11/10/2020 8:01 PM CDT [facility] ALT 23 0 - 50 U/L 11/10/2020 8:01 PM CDT [facility] AST 16 0 - 45 U/L 11/10/2020 8:01 PM CDT [facility] Blood 11/10/2020 2:29 PM CDT 11/10/2020 3:04 PM CDT Kavin Fitzgerald PA-C LAB - BLO OD ORDERABLES Performing Organization Address City/[facility]/ZIP Co de Phone Number [facility] [address] [place] [address] * EYE EXAM - HIM SCAN (05/17/2020 12:00 AM CORPORATE REPRESENTATIVE) RETINOPATHY NEGATIVE 05/17/2020 Narrative Lauren Posada - 05/17/2020 12:00 AM CORPORATE REPRESENTATIVE DIABETIC EYE EXAM [facility] Provider Outside OTHER * (ABNORMAL) A1C FUTURE 1yr (01/13/2020 8:55 AM CDT) Hemoglobin A1C 6.1(H) 0 - 5.6 % 01/13/2020 9:27 AM CDT [facility] Comment: Normal <5.7% Prediabetes 5.7-6.4% ??Diabetes 6.5% or higher - adopted from ADA consensus guidelines. Blood specimen (specimen) 01/13/2020 8:55 AM CDT 01/13/2020 8:56 AM CDT Noreen Flores APRN INSTRUCTIONAL DESIGN MANAGER LAB - BLOOD ORDERABLES [facility] [address] [place] [address] * Fecal colorectal cancer screen (FIT) (01/12/2020 8:00 AM CDT) Occult Blood Scn FIT Negative NEG^Negati ve 01/18/2020 4:19 PM CDT [facility] Stool specimen (specimen) 01/12/2020 8:00 AM CDT 01/18/2020 1:16 PM CDT Noreen Flores APRN, CNP LAB - STOOLS ORDERABLES [facility] [address] [place] [address] * Albumin Random Urine Quantitative with Creat Ratio (08/08/2019 10:17 AM CORPORATE REPRESENTATIVE) Creatinine Urine 154 mg/dL 08/09/2019 1:54 PM CORPORATE REPRESENTATIVE [facility] Albumin Urine mg/L 11 mg/L 08/09/2019 1:59 PM CORPORATE REPRESENTATIVE [facility] Albumin Urine mg/g Cr 7.14 0 - 25 mg/g Cr 08/09/2019 1:59 PM CORPORATE REPRESENTATIVE [facility] Urine specimen (specimen) 08/08/2019 10:17 AM CORPORATE REPRESENTATIVE 08/08/2019 10:18 AM CORPORATE REPRESENTATIVE Noreen Flores APRN, CNP LAB - URINE ORDERABLES Performing Organization Address City/[facility]/ZIP Co de Phone Number [facility] [address] [place] [address] * (ABNORMAL) Lipid panel reflex to direct LDL Fasting (08/08/2019 10:17 AM CORPORATE REPRESENTATIVE) Cholesterol 180 <200 mg/dL 08/08/2019 7:[address] [facility] Triglycerides 153(H) <150 mg/dL 08/08/2019 7:47 [address] [facility] Comment: Borderline high: ??150-199 mg/dl High: ? 200-499 mg/dl Very high: ? >499 mg/dl HDL Cholesterol 46(L) >49 mg/dL 0 7:47 PM [facility] LDL Cholesterol Calculated 103(H) <100 mg/dL 08/08/2019 7:47 PM [facility] Comment: Above desirable: ??100-129 mg/dl Borderline High: ??130-159 mg/dL High: ? 160-189 mg/dL Very high: ? >189 mg/dl Non HDL Cholesterol 134(H) <130 mg/dL 08/08/2019 7:47 PM [facility] Comment: Above Desirable: ??130-159 mg/dl Borderline high: ??160-189 mg/dl High: ? 190-219 mg/dl Very high: ? >219 mg/dl Blood specimen (specimen) 08/08/2019 10:17 AM CORPORATE REPRESENTATIVE 08/08/2019 10:18 AM CORPORATE REPRESENTATIVE Norene Flores APRN INSTRUCTIONAL DESIGN MANAGER LAB - BLOOD ORDERABLES [facility] [address] [place] [address], [facility] [phone] * *MA Screening Digital Bilateral (09/03/2018 10:13 [...] Antigen Antibody Combo (04/09/2018 10:09 AM CDT) Pathologist [facility] HIV Antigen Antibody Combo Nonreactive NR^Nonrea ctive 04/10/2018 7:29 AM CDT [facility] Comment:HIV-1 p24 Ag & HIV-1 /HIV-2 Ab Not Detected Blood specimen (specimen) 04/09/2018 10:09 AM CDT 04/09/2018 10:15 AM CDT Noreen Flores APRN, CNP LAB - BLOOD ORDERABLES [facility] [address] * Hepatitis C Screen Reflex to HCV RNA Quant and Genotype (09/25/2016 2:30 PM CDT) Pathologist [facility] Hepatitis C Antibody Nonreactive Assay performance characteristics have not been established for newborns, infants, and children NR [facility] Blood specimen (specimen) 09/25/2016 2:30 PM CDT 09/26/2016 11:29 AM CDT Vanda Borja MD LAB - BLOOD ORDER ILDEFONSO [facility] [address] [place] [address] * HPV High Risk Types DNA Cervical (05/03/2016 12:17 PM CORPORATE REPRESENTATIVE) HPV 16 DNA Negative [facility]G [facility] HPV 18 DNA [facility] NEG [facility] Other HR HPV Negative NEG [facility] Final Diagnosis This patient's sample is [...] and its performance characteristics determined by the [facility], Molecular Diagnostics Laboratory. It has not been cleared or approved by the FDA. The laboratory is regulated under CLIA as qualified to perform high-complexity testing. This test is used for clinical purposes. It should not be regarded as investigational or for research. [facility] Specimen Description Cervical Cells [id number] [facility] Cervical Cells 05/03/2016 12 :17 PM CORPORATE REPRESENTATIVE 05/03/2016 12:20 PM CORPORATE REPRESENTATIVE Vanda Borja MD LAB - BLOOD ORDER ILDEFONSO [facility] [address] [place] [address] * Pap imaged thin layer screen with HPV - recommended age 30 - 65 years (select HPV order below) (05/03/2016 12:00 AM CORPORATE REPRESENTATIVE) PAP RAMSEY Wren Report Patient Name: MEGAN CHOI MR#: [id number] Specimen #: [id number] Collected: 05/03/2016 Received: 05/05/2016 Reported: 05/09/2016 08:26 [...] TARIQ Wick (ASCP) Processed and screened at [facility], [facility] CLINICAL HISTORY: LMP: 10/30/11 Post Menopausal, Previous normal pap Date of Last Pap: 10/06/14, Papanicolaou Test Limitations: ??Cervical cytology is a screening test with limited sensitivity; regular screening is critical for cancer prevention; Pap tests are primarily effective for the diagnosis/preventi on of squamous cell carcinoma, not adenocarcinomas or other cancers. TESTING LAB LOCATION: [address] ??[address] COLLECTION SITE: Client: ??[facility] Location: [facility] (R) COPATH Cytologic material (specimen) 05/03/2016 05/05/2016 10:22 AM CORPORATE REPRESENTATIVE Vanda Borja MD LAB - OPTIME CLIN ICAL SPECIMEN COPATH from Last 3 Months or Most Recently Relevant to Health Maintenance Care Teams Nursing Education Specialist Relationship Specialty Start Date End Date Sudha Greene NP [facility] - [address] [address] PCP - General 11/01/22 Agatha Null, MARÍA, Podiatry/Foot and Ankle Surgery [address] [place] [address] Assigned Musculoskeletal Provider 11/04/22 Clinic - [place] [address] [id number] Assigned PCP 07/05/23
--- OUTSIDE RECORDS SUMMARY | 2023-11-02 07:07 | XMS_ITS | Encounter Summary ---
Author Organization [place] Address [address] [place] [address] Care Team Providers Care Manager Of Compliance Name Role Phone Noreen Flores APRN PRACTICAL MINISTRIES PROFESSOR Unavailable Noreen Flores APRN PRACTICAL MINISTRIES PROFESSOR Primary Car e Provider Kalyan Galvan Unavailable Unavailable Eduardo Sharma MD Unavailable Marcelo Artis PA-C Unavailable Noreen Flores APRN PRACTICAL MINISTRIES PROFESSOR Unavailable Sudha Greene NP Primary Care Provider Agatha NullM, Podiatry /Foot and Ankle Surgery Unavailable [facility] [place] Unavailable Reason for Visit * Reason Comments Medication Refill Encounter Details Date Type Department Care Team (Late st Contact Info) Description 01/06/2021 Refill [facility] [place] [address] [place] [address] Noreen Flores APRN PRACTICAL MINISTRIES PROFESSOR [address] [facility] [place] [id number] Medication Refill Social History Tobacco Use Types [...] Date Recorded PHQ-2 Score 0 11/10/2020 [facility] of Occupat ional Health - Occupational [...] as of this encounter Care Teams Manager Of Compliance Relationship Specialty Start Date End Date Noreen Flores APRN PRACTICAL MINISTRIES PROFESSOR [address] [place] [address] [place] [address] PCP - General Nurse Practitioner 01/09/19 12/12/21 Sudha Greene NP [address] [address] PCP - General 11/01/22 Noreen Flores APRN PRACTICAL MINISTRIES PROFESSOR [address] [place] [address] [place] [address] Assigned PCP 06/16/18 05/26/22 Kalyan Galvan Personal Advocate & Liaison (PAL) 08/08/19 04/26/21 Eduardo Sharma MD [address] [address] Assigned Sleep Provider 04/02/2005/07 Marcelo Artis PA-C [address] [address] Assigned Musculoskeletal Provider 08/25/20 08/20/21 Noreen Flores APRN PRACTICAL MINISTRIES PROFESSOR [address] [place] [address] [place] [address] Assigned PCP 08/05/22 03/16/23 Agatha Null, MARÍA, Podiatry/Foot and Ankle Surgery [address] [place] [address] Assigned Musculoskeletal Provider 11/04/22 Clinic - [place] [address] [place] [id number] Assigned PCP 07/05/23 documented as of this encounter
--- OUTSIDE RECORDS SUMMARY | 2023-11-02 07:07 | XMS_ITS | Encounter Summary ---
Author Organization [place] Address [address] [place] [address] Care Team Providers Care Cooling Machine Operator Name Role Phone Noreen Flores APRN GREENHOUSE MANAGER Unavailable Noreen Flores APRN GREENHOUSE MANAGER Primary Car e Provider Kalyan Galvan Unavailable Unavailable Lashae Trevino [facility] Unavailable Eduardo Sharma MD Unavailable Marcelo Artis PA-C Unavailable Rodrigo ManC Unavailable [phone] Noreen Flores APRN GREENHOUSE MANAGER Unavailable Sudha Greene NP Primary Care Provider Agatha Null DPM, Podiatry /Foot and Ankle Surgery Unavailable [facility] Unavailable Encounter Details Date Type Department Care Team (Late st Contact Info) Description 10/28/2020 Myra Moya [facility] [place] [address] [place] [address] Lashae Trevino, [facility] [address] [facility] [place] [address] Social History [...] Answer Date Recorded PHQ-2 Score 2 07/25/2018 [facility] - Occupational [...] documented as of this encounter Care Teams Cooling Machine Operator Relationship Specialty Start Date End Date Noreen Flores APRN GREENHOUSE MANAGER [address] [place] [address] [place] [address] PCP - General Nurse Practitioner 01/09/19 12/12/21 Sudha Greene NP [address] [address] PCP - General 11/01/22 Noreen Flores APRN GREENHOUSE MANAGER [address] [place] [address] [place] [address] Assigned PCP 06/16/18 05/26/22 Kalyan Galvan Personal Advocate & Liaison (PAL) 08/08/19 04/26/21 [facility] [place] [address] Pharmacist Pharmacist 10/14/19 12/01/20 Eduardo Sharma MD [address] [facility] [address] [place] [address] Assigned Sleep Provider 04/02/2005/07 Marcelo Artis PA-C [address] [facility] [address] [place] [address] Assigned Musculoskeletal Provider 08/25/20 08/20/21 Rodrigo Man PA-C [address] [place] [address] Assigned Surgical Provider 08/25/20 11/27/20 Noreen Flores APRN GREENHOUSE MANAGER [address] [facility] [place] [address] Assigned PCP 08/05/22 03/16/23 Agatha Null DPM, Podiatry/Foot and Ankle Surgery [address] [place] [address] Assigned Musculoskeletal Provider 11/04/22 [facility] [address] [place] [address] Assigned PCP 07/05/23 documented as of this encounter
--- OUTSIDE RECORDS SUMMARY | 2023-11-02 07:07 | XMS_ITS | Encounter Summary ---
Author Organization [place] Address [address] [place] [address] Care Team Providers Care Housing Property Manager Name Role Phone Noreen Flores APRN TETRYL BOILING TUB OPERATOR Unavailable Noreen Flores APRN TETRYL BOILING TUB OPERATOR Primary Car e Provider Kalyan Galvan Unavailable Unavailable Lashae Trevino [facility] Unavailable Eduardo Sharma MD Unavailable Marcelo Artis PA-C Unavailable Rodrigo Man PA-C Unavailable [phone] Noreen Flores APRN TETRYL BOILING TUB OPERATOR Unavailable Sudha Greene NP Primary Care Provider Agatha Null DPM, Podiatry /Foot and Ankle Surgery Unavailable [facility] Unavailable Reason for Visit * Reason Onset Date Comments Refill Request 10/05/2020 topiramate (TOPA MAX) 100 MG tablet Encounter Details Date Type Department Care Team (Late st Contact Info) Description 10/05/2020 Refill [facility] [place] [address] [place] [address] Noreen Flores APRN TETRYL BOILING TUB OPERATOR [address] [facility] [place] [address] Refill Request (topiramate [...] Answer Date Recorded PHQ-2 Score 2 07/25/2018 [facility] [place] of Occupat ional Health - Occupational Stress [...] documented as of this encounter Care Teams Housing Property Manager Relationship Specialty Start Date End Date Noreen Flores APRN TETRYL BOILING TUB OPERATOR [address] [place] [address] [place] [address] PCP - General Nurse Practitioner 01/09/19 12/12/21 Sudha Greene NP [address] [address] PCP - General 11/01/22 Noreen Flores APRN TETRYL BOILING TUB OPERATOR [address] [place] [address] [place] [address] Assigned PCP 06/16/18 05/26/22 Van, Alfredo Personal Advocate & Liaison (PAL) 08/08/19 04/26/21 Lashae Trevino, [facility] [address] [facility] [place] [address] Pharmacist Pharmacist 10/14/19 12/01/20 Eduardo Sharma MD [address] [place], [place] [address] Assigned Sleep Provider 04/02/2005/07 Marcelo Artis PA-C [address] [facility] [address] [place] [address] Assigned Musculoskeletal Provider 08/25/20 08/20/21 Rodrigo Man PA-C [address] [place] [address] Assigned Surgical Provider 08/25/20 11/27/20 Noreen Flores APRN CNP [address] [place] [address] [place] [address] Assigned PCP 08/05/22 03/16/23 Agatha Null DPM, Podiatry/Foot and Ankle Surgery [address] [place] [address] [facility] 300 [place] [address] Assigned Musculoskeletal Provider 11/04/22 [facility] [place] [place] [address] [facility] [place] [address] Assigned PCP 07/05/23 documented as of this encounter
--- OUTSIDE RECORDS SUMMARY | 2023-11-02 07:07 | XMS_ITS | Clinical Summary ---
Author Organization [place] Address [address] [place] [address] Care Team Providers Care Solar Photovoltaic Crew Lead Name Role Phone Sudha Greene NP Primary Care Provider Agatha Null DPM, Podiatry /Foot and Ankle Surgery Unavailable [facility] Unavailable Allergies Active Allergy Reactions Criticality Noted [...] sprayIndications:Al lergic rhinitis, unspecified seasonality, unspecified trigger [place] 1-2 sprays into both nostrils daily 16 [...] use. Address next visit Family history of NC (myocardial infarction) 08/2007 Overview: At early age, father NC at age 40 Resolved Problems Problem Noted [...] 4 Kidney Disease Brother 5 Cardiovascular Father NC early 40s, almodovar bsequent bipass Diabetes Father Hypertension Father Lipids Father Diabetes Maternal Grandfather Hypertension Maternal Grandfather Lipids Maternal Grandfather Diabetes Maternal Grandmother Hypertension Maternal Grandmother Lipids Maternal Grandmother Arthritis Mother OA Cardiovascular Mother NC age 72 Diabetes Mother Type II Hypertension [...] Answer Date Recorded PHQ-2 Score 0 11/10/2020 [facility] Occupat ional Health - Occupational [...] Comments Blood Pressure 128/80 05/11/2023 1:07 PM GREIGE MENDER Pulse 87 02/26/2023 3:58 PM CDT Temperature 36.2 ??C (97.2 ??F) 02/26/2023 3:58 PM CD T Respiratory Rate 12 02/26/2023 3:13 PM CDT Oxygen Saturation 95% 02/26/2023 4:00 PM CDT Inhaled Oxygen Concentration - - Weight 87.1 kg (192 lb) 05/11/2023 1:07 PM GREIGE MENDER Height 156 cm (5' 1.42) 02/26/2023 11:19 [...] 05/05/2011, Additional history exists PHQ-9 05/12/2021 11/10/2020, 10/11/2019, 08/08/2019, Additional history exists EYE EXAM 05/17/2021 [...] - HIM SCAN 05/17/2020 1 2:00 AM GREIGE MENDER HEMOGLOBIN A1C Routine 01/13/2020 8:55 AM CDT Type 2 diabetes mellitus with complication, without long-term current use of insulin (H) FECAL COLORECTAL CANCER SCREEN FIT Routine 01/12/2020 8:00 AM CDT Health care maintenance ALBUMIN RANDOM URINE QUANTITATIVE Routine 08/08/2019 10:17 AM GREIGE MENDER Routine general medical examination at [facility] LIPID REFLEX TO DIRECT LDL PANEL Routine 08/08/2019 10:17 AM GREIGE MENDER Routine general medical examination at [facility] care facility MA SCREENING DIGITAL BILATERAL Routine 09/03/2018 10:13 AM CDT Health care maintenance HIV ANTIGEN ANTIBODY COMBO Routine 04/09/2018 10:09 AM CDT Encounter for screening for HIV HEPATITIS C SCREEN REFLEX TO HCV RNA QUANT AND GENOTYPE Routine 09/25/2016 2:30 PM CDT Need for hepatitis C screening test HPV HIGH RISK TYPES DNA CERVICAL Routine 05/03/2016 12:17 PM GREIGE MENDER Cervical cancer screening PAP IMAGED THIN LAYER SCREEN Routine 05/03/2016 12:00 AM GREIGE MENDER Cervical cancer screening C FOOT EXAM Routine 10/06/2014 9:47 AM CDT Type 2 diabetes, HbA1C goal < 7% (H) from Last 3 Months or Most Recently Relevant to Health Maintenance Results * (ABNORMAL) Comprehensive metabolic panel (11/10/2020 2:29 PM CDT) Sodium 142 133 - 144 mmol/L 11/10/2020 7:[address] [facility] Potassium 4.0 3.4 - 5.3 mmol/L 11/10/2020 7:[address] [facility] Chloride 112(H) 94 - 109 mmol/L 11/10/2020 7:[address] [facility] Carbon Dioxide 27 20 - 32 mmol/L 11/10/2020 7:[address] [facility] Anion Gap 4 3 - 14 mmol/L 11/10/2020 7:[address] [facility] Glucose 96 70 - 99 mg/dL 11/10/2020 7:[address] [facility] Urea Nitrogen 14 7 - 30 mg/dL 11/10/2020 7:[address] [facility] Creatinine 0.74 0.52 - 1.04 mg/dL 11/10/2020 7:[address] [facility] GFR Estimate >90 >60 mL/min/{1 .73_m2} 11/10/2020 7:[address] [facility] Comment: Non GFR [...] - 10.1 mg/dL 11/10/2020 7:[address] [facility] Bilirubin Total 0.6 0.2 - 1.3 mg/dL 11/10/2020 8:[address] [facility] Albumin 3.6 3.4 - 5.0 g/dL 11/10/2020 8:[address] [facility] Protein Total 7.2 6.8 - 8.8 g/dL 11/10/2020 8:[address] [facility] Alkaline Phosphatase 143 40 - 150 U/L 11/10/2020 8:[address] [facility] ALT 23 0 - 50 U/L 11/10/2020 8:[address] [facility] AST 16 0 - 45 U/L 11/10/2020 8:[address] [facility] Blood 11/10/2020 2:29 PM CDT 11/10/2020 3:04 PM CDT Kavin Fitzgerald PA-C LAB - BLO OD ORDERABLES [facility] [address] [place] [address] * EYE EXAM - HIM SCAN (05/17/2020 12:00 AM GREIGE MENDER) Pathologist [facility] RETINOPATHY NEGATIVE 05/17/2020 Narrative Lauren Posada - 05/17/2020 12:00 AM GREIGE MENDER DIABETIC EYE EXAM [facility] Provider Outside OTHER * (ABNORMAL) A1C FUTURE 1yr (01/13/2020 8:55 AM CDT) Pathologist [facility] Hemoglobin A1C 6.1(H) 0 - 5.6 % 01/13/2020 9:27 AM CDT [facility] Comment: Normal <5.7% Prediabetes 5.7-6.4% ??Diabetes 6.5% or higher - adopted from ADA consensus guidelines. Blood specimen (specimen) 01/13/2020 8:55 AM CDT 01/13/2020 8:56 AM CDT Noreen Flores APRN, CNP LAB - BLOOD ORDERABLES [address] [address] * Fecal colorectal cancer screen (FIT) (01/12/2020 8:00 AM CDT) Pathologist [facility] Occult Blood Scn FIT Negative NEG^Negati ve 01/18/2020 4:[address] [facility] Stool specimen (specimen) 01/12/2020 8:00 AM CDT 01/18/2020 1:16 PM CDT Noreen Flores APRN, CNP LAB - STOOLS ORDERABLES [facility] [address] [place] [address] * Albumin Random Urine Quantitative with Creat Ratio (08/08/2019 10:17 AM GREIGE MENDER) Creatinine Urine 154 mg/dL 08/09/2019 1:54 PM GREIGE MENDER [facility] Albumin Urine mg/L 11 mg/L 08/09/2019 1:59 PM GREIGE MENDER [facility] Albumin Urine mg/g Cr 7.14 0 - 25 mg/g Cr 08/09/2019 1:59 PM GREIGE MENDER [facility] Urine specimen (specimen) 08/08/2019 10:17 AM GREIGE MENDER 08/08/2019 10:18 AM GREIGE MENDER Noreen Flores APRN, CNP LAB - URINE ORDERABLES Performing Organization Address City/[facility]/ZIP Co de Phone Number [facility] [address] [place] [address] * (ABNORMAL) Lipid panel reflex to direct LDL Fasting (08/08/2019 10:17 AM GREIGE MENDER) Cholesterol 180 <200 mg/dL 08/08/2019 7:47 PM GREIGE MENDER [facility] Triglycerides 153(H) <150 mg/dL 08/08/2019 7:47 PM [facility] Comment: Borderline high: ??150-199 mg/dl High: ? 200-499 mg/dl Very high: ? >499 mg/dl HDL Cholesterol 46(L) >49 mg/dL 0 7:47 PM GREIGE MENDER [facility] LDL Cholesterol Calculated 103(H) <100 mg/dL 08/08/2019 7:47 PM [facility] Comment: Above desirable: ??100-129 mg/dl Borderline High: ??130-159 mg/dL High: ? 160-189 mg/dL Very high: ? >189 mg/dl Non HDL Cholesterol 134(H) <130 mg/dL 08/08/2019 7:47 PM [facility] Comment: Above Desirable: ??130-159 mg/dl Borderline high: ??160-189 mg/dl High: ? 190-219 mg/dl Very high: ? >219 mg/dl Blood specimen (specimen) 08/08/2019 10:17 AM GREIGE MENDER 08/08/2019 10:18 AM GREIGE MENDER Noreen Flores APRN [employer]CHO[employer] RESOURCE TEACHER LAB - BLOOD ORDERABLES Performing Organization Address City/State/[facility] Co de Phone Number [facility] [address] [place] [address], [facility] [phone] * *MA Screening Digital Bilateral (09/03/2018 10:13 AM CDT) Anatomical Region Laterality Modality Breast Bilateral Mammography Impressions 09/03/2018 10:30 AM CDT IMPRESSION: BI-RADS CATEGORY: 1 - ??Negative. RECOMMENDED FOLLOW-UP: Annual Mammography. PANCHITO DESIR MD Narrative 09/03/2018 10:30 AM CDT SCREENING MAMMOGRAM, BILATERAL, DIGITAL w/CAD, 09/03/2018 10:29 AM BREAST DENSITY: Scattered fibroglandular densities. CLINICAL INFORMATION: Breast screening. ??[facility], 09/30/15, 04/16/15, 05/27/13 FINDINGS: Negative. Stable exam. Screening exam in one year recommended. Procedure Note Panchito Desir MD - 09/03/2018 SCREENING MAMMOGRAM, BILATERAL, DIGITAL w/CAD, 09/03/2018 10:29 AM BREAST DENSITY: Scattered fibroglandular densities. CLINICAL INFORMATION: Breast screening. [facility], 09/30/15, 04/16/15, 05/27/13 FINDINGS: Negative. Stable exam. Screening exam in one year recommended. IMPRESSION: BI-RADS CATEGORY: 1 - Negative. RECOMMENDED FOLLOW-UP: Annual Mammography. PANCHITO DESIR MD Noreen Flores APRN, CNP IMG MAMMOGRAPHY ORDERABLES * HIV Antigen Antibody Combo (04/09/2018 10:09 AM CDT) Pathologist [facility] HIV Antigen Antibody Combo Nonreactive NR^Nonrea ctive 04/10/2018 7:29 AM CDT [facility] Comment:HIV-1 p24 Ag & HIV-1 /HIV-2 Ab Not Detected Blood specimen (specimen) 04/09/2018 10:09 AM CDT 04/09/2018 10:15 AM CDT Noreen Flores APRN, CNP LAB - BLOOD ORDERABLES [facility] [address] * Hepatitis C Screen Reflex to HCV RNA Quant and Genotype (09/25/2016 2:30 PM CDT) Pathologist [facility] Hepatitis C Antibody Nonreactive Assay performance characteristics have not been established for newborns, infants, and children NR [facility] Blood specimen (specimen) 09/25/2016 2:30 PM CDT 09/26/2016 11:29 AM CDT Vanda Borja MD LAB - BLOOD ORDER ILDEFONSO [facility] [address] [place] [address] * HPV High Risk Types DNA Cervical (05/03/2016 12:17 PM GREIGE MENDER) Pathologist [facility] HPV 16 DNA Negative NEG [facility] HPV 18 DNA Negative NEG [facility] Other HR HPV Negative NEG [facility] Final Diagnosis This patient's sample is negative [...] and its performance characteristics determined by the [facility], Molecular Diagnostics Laboratory. It has not been cleared or approved by the FDA. The laboratory is regulated under CLIA as qualified to perform high-complexity testing. This test is used for clinical purposes. It should not be regarded as investigational or for research. [facility] Specimen Description Cervical Cells [id number] [facility] Cervical Cells 05/03/2016 12 :17 PM GREIGE MENDER 05/03/2016 12:20 PM GREIGE MENDER Vanda Borja MD LAB - BLOOD ORDER ILDEFONSO [facility] [address] [place] [address] * Pap imaged thin layer screen with HPV - recommended age 30 - 65 years (select HPV order below) (05/03/2016 12:00 AM GREIGE MENDER) PAP RAMSEY Wren Report Patient Name: MEGAN WONG MR#: [id number] Specimen #: [id number] Collected: 05/03/2016 Received: 05/05/2016 Reported: 05/09/2016 08:26 [...] TARIQ Wick (ASCP) Processed and screened at [facility], [facility] CLINICAL HISTORY: LMP: 10/30/11 Post Menopausal, Previous normal pap Date of Last Pap: 10/06/14, Papanicolaou Test Limitations: ??Cervical cytology is a screening test with limited sensitivity; regular screening is critical for cancer prevention; Pap tests are primarily effective for the diagnosis/preventi on of squamous cell carcinoma, not adenocarcinomas or other cancers. TESTING LAB LOCATION: [address] ??[address] COLLECTION SITE: Client: ??[facility] Location: EAFP (R) COPATH Cytologic material (specimen) 05/03/2016 05/05/2016 10:22 AM GREIGE MENDER Vanda Borja MD LAB - OPTIME CLIN ICAL SPECIMEN COPATH from Last 3 Months or Most Recently Relevant to Health Maintenance Care Teams Solar Photovoltaic Crew Lead Relationship Specialty Start Date End Date Sudha Greene NP [facility] [address] [place] [address] PCP - General 11/01/22 Agatha Null, MARÍA, Podiatry/Foot and Ankle Surgery [address] [place] [address] Assigned Musculoskeletal Provider 11/04/22 [facility] [place] [address] [address] Assigned PCP 07/05/23
--- OUTSIDE RECORDS SUMMARY | 2023-11-02 07:07 | XMS_ITS | Encounter Summary ---
Author Organization [place] Address [address] [place] [address] Care Team Providers Care Pipe Crew Foreman Name Role Phone Noreen Flores REFERRAL MANAGEMENT LIAISON DAIRY HUSBANDRY TEACHER Unavailable Sudha Greene NP Primary Care Provider [phone] Agatha Null DPM, Podiatry /Foot and Ankle Surgery Unavailable [facility] Unavailable Reason for Visit * Reason Onset Date Comments Forms 02/02/2023 Encounter Details Date Type Department Care Team (Late st Contact Info) Description 02/02/2023 [facility] Medical Advice [facility] Podiatry [address] [place], [place] [address] Agatha Null DPM, Podiatry/Foot and Ankle Surgery [address] [place] [address] Forms Social History Tobacco Use [...] Recorded PHQ-2 Score 0 11/10/2020 [facility] of Occupat ional Health - Occupational Stress [...] as of this encounter Care Teams Pipe Crew Foreman Relationship Specialty Start Date End Date Sudha Greene NP [address] [address] PCP - General 11/01/22 Noreen Flores APRN CNP [address] [place] [address] [place] [address] Assigned PCP 08/05/22 03/16/23 Agatha Null, MARÍA, Podiatry/Foot and Ankle Surgery [address] [place] [address] [place], [place] [address] [address] Assigned Musculoskeletal Provider 11/04/22 [facility] [address] [facility] DAV[place] [address] Assigned PCP 07/05/23 documented as of this encounter
--- OUTSIDE RECORDS SUMMARY | 2023-11-02 07:07 | XMS_ITS | Encounter Summary ---
Author Organization [place] Address [address] [place] [address] Care Team Providers Care Information Security Manager Name Role Phone Noreen Flores ANTISQUEAK CHALKER MUSIC ARTIST Unavailable Sudha Greene RAT EXTERMINATOR Primary Care Provider Agatha Null DPM, Podiatry /Foot and Ankle Surgery Unavailable [facility] Unavailable Encounter Details Date Type Department Care Team (Late st Contact Info) Description 01/12/2023 [facility] Medical Adv[facility] [address] [place] [address] Agatha Null DPM, Podiatry/Foot and Ankle Surgery [address] [place] [address] Chronic pain of right ankle [...] Answer Date Recorded PHQ-2 Score 0 11/10/2020 [facility] of Occupat ional Health - Occupational Stress [...] roller. Please let patient know. Thanks, Agatha Chaka, DPM CDT * Telephone Encounter - Haily Gandhi ATC - 01/12/2023 2:44 PM CDT Patient requesting order for knee scooter be placed for upcoming surgery. Order pended for providerreview/ signature. Haily Gandhi MSA, JUAN Relief Worker documented in this encounter Plan of Treatment Not on file documented as of this encounter Visit Diagnoses Diagnosis Chronic pain of right ankle- Primary Peroneal tendon tear, right, subsequent encounter documented in this encounter Additional Health Concerns Assessment Noted Time PHQ-9 Depression Total Score: 7 11/11/19 21 1:31 PM CDT documented as of this encounter Care Teams Information Security Manager Relationship Specialty Start Date End Date Sudha Greene NP [address] [address] PCP - General 11/01/22 Noreen Flores APRN CNP [address] [place] [address] [place] [address] Assigned PCP 08/05/22 03/16/23 Agatha Null DPM, Podiatry/Foot and Ankle Surgery [address] [place] [address] Assigned Musculoskeletal Provider 11/04/22 [facility] [place] [address] [place] [address] Assigned PCP 07/05/23 documented as of this encounter
--- OUTSIDE RECORDS SUMMARY | 2023-11-02 07:07 | XMS_ITS ---
Author Organization [facility] Address [address] [place] [address] Care Team Providers Care Network Systems Integrator Name Role Phone Unavailable Unavailable Unavailable Surgery Details Not on file Complications Check Surgery Details section. Procedure Estimated Blood Loss Check Surgery Details section. Procedure Findings Check Surgery Details section. Procedure Specimens Taken Check Surgery Details section.
--- OUTSIDE RECORDS SUMMARY | 2023-11-02 07:07 | XMS_ITS | Encounter Summary ---
Author Organization [place] Address [address] [place] [address] Care Team Providers Care Assembler Dry Cell And Battery Name Role Phone Noreen Flores APRN DIRECTOR INVESTMENT BANKING Unavailable Noreen Flores APRN DIRECTOR INVESTMENT BANKING Primary Car e Provider Marcelo Artis PA-C Unavailable [phone] Noreen Flores APRN DIRECTOR INVESTMENT BANKING Unavailable Sudha Greene NP Primary Care Provider Agatha Null DPM, Podiatry /Foot and Ankle Surgery Unavailable Clinic - [facility] Unavailable Encounter Details Date Type Department Care Team (Late st Contact Info) Description 07/25/[address] [facility] [address] [facility] [address] [place] [address] Christi Panda MA Social History [...] Friends and Family Patient declined 08/08/2019 Attends Baptism Services Patient declined 07/13 Active Member of [...] Answer Date Recorded PHQ-2 Score 0 11/10/2020 [facility] of Occupat ional Health - Occupational Stress [...] as of this encounter Care Teams Assembler Dry Cell And Battery Relationship Specialty Start Date End Date Noreen Flores APRN DIRECTOR INVESTMENT BANKING [address] [facility] [place] [address] PCP - General Nurse Practitioner 01/09/19 12/12/21 Sudha Greene NP [address] [address] PCP - General 11/01/22 Noreen Flores APRN DIRECTOR INVESTMENT BANKING [address] [place] [address] [place] [address] Assigned PCP 06/16/18 05/26/22 Marcelo Artis PA-C [address] [place] [address] Assigned Musculoskeletal Provider 08/25/20 08/20/21 Noreen Flores APRN DIRECTOR INVESTMENT BANKING [address] [place] [address] [place] [address] Assigned PCP 08/05/22 03/16/23 Agatha Null DPM, Podiatry/Foot and Ankle Surgery [address] [place] [address] [address] [place] [address] Assigned Musculoskeletal Provider 11/04/22 [facility] [place] [address] [place] [address] Assigned PCP 07/05/23 documented as of this encounter
--- OUTSIDE RECORDS SUMMARY | 2023-11-02 07:07 | XMS_ITS | Encounter Summary ---
Author Organization [place] Address [address] [place] [address] Care Team Providers Care Bicycle Fitter Name Role Phone Noreen Flores SALES REPRESENTATIVE [facility] Unavailable Sudha Greene MACHINE ENGRAVER Primary Care Provider Agatha Null DPM, Podiatry /Foot and Ankle Surgery Unavailable Clinic - [facility] Unavailable Encounter Details Date Type Department Care Team (Late st Contact Info) Description 01/04/2023 MyC Medical Advice [facility] [address] [place] [address] Tony Orozco Social History Tobacco [...] Answer Date Recorded PHQ-2 Score 0 11/10/2020 [facility]at ional [facility] - [...] as of this encounter Care Teams Bicycle Fitter Relationship Specialty Start Date End Date Sudha Greene NP [address] [address] PCP - General 11/01/22 Noreen Flores APRN SERVICE CENTER [facility] [address] [facility] [place] [address] Assigned PCP 08/05/22 03/16/23 Agatha Null DPM, Podiatry/Foot and Ankle Surgery [address] [place] [address] Assigned Musculoskeletal Provider 11/04/22 Clinic - [facility] [address] [place] [address] [place] [address] Assigned PCP 07/05/23 documented as of this encounter
--- OUTSIDE RECORDS SUMMARY | 2023-11-02 07:07 | XMS_ITS | Referral Summary ---
Author Organization [facility] Address [address] [place] [address] Care Team Providers Care Outside Sales Manager Name Role Phone Unavailable Primary Care Provider Unavailabl e Source Comments Patient records contain information from all sites at [facility]. For routine questions regarding patient records, call [phone] during business hours, M-F 8:00 AM - 5:00 PM Central Time. Record requests for emergency care only can be directed to [phone] at any time.[facility] Allergies Active Allergy Reactions Criticality Noted [...] TO DIRECT LDL Routine 08/08/2019 10:17 AM DIRECTOR OF MANAGED CARE BI BREAST DIAGNOSTIC BILATERAL WITH TOMOSYNTHESIS Routine 09/30/2015 2:11 PM CDT from Last 3 Months or Most Recently Relevant to Health Maintenance [facility] [place] [id number]
--- OUTSIDE RECORDS SUMMARY | 2023-11-02 07:08 | XMS_ITS | Encounter Summary ---
Author Organization [place] Address [address] [place] [address] Care Team Providers Care Coffee Bar Attendant Name Role Phone Noreen Flores APRN MANAGER CAMP Unavailable Noreen Flores APRN MANAGER CAMP Primary Car e Provider Kalyan Galvan Unavailable Unavailable Lashae Trevino [facility] Unavailable [phone] Eduardo Sharma MD Unavailable Rios Monteiro MD Unavailable Marcelo Artis PA-C Unavailable [phone] Rodrigo Man PA-C Unavailable [phone] Noreen Flores APRN MANAGER CAMP Unavailable Sudha Greene NP Primary Care Provider Agatha Null DPM, Podiatry /Foot and Ankle Surgery Unavailable Clinic - [facility] Unavailable Encounter Details Date Type Department Care Team (Late st Contact Info) Description 10/06/2019 [facility] Neurosurgery Clinic [address] [address] Patricia Bonilla Social History Tobacco [...] Answer Date Recorded PHQ-2 Score 2 07/25/2018 [facility] [place] of Occupat ional Health - Occupational Stress [...] Total Score: 9 08/09/19 20 7:03 AM APPLICATION PENETRATION TESTER documented as of this encounter Care Teams Coffee Bar Attendant Relationship Specialty Start Date End Date Noreen Flores APRN MANAGER CAMP [address] [place] [address] [place] [address] PCP - General Nurse Practitioner 01/09/19 12/12/21 Sudha Greene NP [address] [address] PCP - General 11/01/22 Noreen Flores APRN MANAGER CAMP [address] [place] [address] [place] [address] Assigned PCP 06/16/18 05/26/22 Kalyan Galvan Personal Advocate & Liaison (PAL) 08/08/19 04/26/21 [facility] [address] [facility] [place] [address] Pharmacist Pharmacist 10/14/19 12/01/20 Eduardo Sharma MD [address] [facility] [address] [place] [address] Assigned Sleep Provider 04/02/2005/07 [place] [address] [facility] [address] [place] [address] Assigned Musculoskeletal Provider 04/02/20 08/24/20 Marcelo Artis PA-C [address] [facility] [address] [place] [address] Assigned Musculoskeletal Provider 08/25/20 08/20/21 Rodrigo Man PA-C [address] [facility] [address] [place] [address] Assigned Surgical Provider 08/25/20 11/27/20 Noreen Flores APRN MANAGER CAMP [address] [place] [address] [place] [address] Assigned PCP 08/05/22 03/16/23 Agatha Null DPM, Podiatry/Foot and Ankle Surgery [address] [facility] 300 [place] [address] Assigned Musculoskeletal Provider 11/04/22 [facility] - [facility] [address] [facility] [place] [id number] Assigned PCP 07/05/23 documented as of this encounter
--- OUTSIDE RECORDS SUMMARY | 2023-11-02 07:08 | XMS_ITS | Encounter Summary ---
Author Organization [place] Address [address] [place] [address] Care Team Providers Care Escape Wheel Tooth Cutter Name Role Phone Noreen Flores APRN GUEST ATTENDANT Unavailable Noreen Flores APRN GUEST ATTENDANT Primary Car e Provider Kalyan Galvan Unavailable Unavailable Lashae Trevino [facility] Unavailable Eduardo Sharma MD Unavailable Rios Monteiro MD Unavailable [phone] Marcelo Artis PA-C Unavailable Rodrigo Man PA-C Unavailable [phone] Noreen Flores APRN GUEST ATTENDANT Unavailable Sudha Greene NP Primary Care Provider Agatha Null DPM, Podiatry /Foot and Ankle Surgery Unavailable Clinic - [facility] Unavailable Encounter Details Date Type Department Care Team (Late st Contact Info) Description 12/23/2019 [facility] Lucy [facility] [place] [address] [facility] [address] [place] [address] Noreen Flores APRN GUEST ATTENDANT 8645 [facility] [place] [address] Chronic seasonal [...] Answer Date Recorded PHQ-2 Score 2 07/25/2018 [facility] [place] of Occupat ional Health - Occupational Stress [...] encounter Miscellaneous Notes * Telephone Encounter - Russell Lainey - 01/15/2020 10:52 AM CDT See message [...] CDT Please call [facility] in [facility] and find out why they are [...] Total Score: 9 08/09/19 20 7:03 AM SUPERVISOR WELDING EQUIPMENT REPAIRER documented as of this encounter Care Teams Escape Wheel Tooth Cutter Relationship Specialty Start Date End Date Noreen Flores APRN GUEST ATTENDANT [address] [place] [address] [place] [address] PCP - General Nurse Practitioner 01/09/19 12/12/21 Sudha Greene NP [address] [address] PCP - General 11/01/22 Noreen Flores APRN GUEST ATTENDANT [address] [place] [address] [place] [address] Assigned PCP 06/16/18 05/26/22 Kalyan Galvan Personal Advocate & Liaison (PAL) 08/08/19 04/26/21 [facility] [address] [place] [address] [place] [address] Pharmacist Pharmacist 10/14/19 12/01/20 Eduardo Sharma MD [address] [address] Assigned Sleep Provider 04/02/2005/07 Rios Monteiro MD [address] [place] [address] Assigned Musculoskeletal Provider 04/02/20 08/24/20 Marcelo Artis PA-C [address] [address] Assigned Musculoskeletal Provider 08/25/20 08/20/21 Rodrigo Man PA-C [address] [place] [address] [place] [address] Assigned Surgical Provider 08/25/20 11/27/20 Noreen Flores APRN GUEST ATTENDANT 3305 [facility] [place] [address] Assigned PCP 08/05/22 03/16/23 Agatha Null DPM, Podiatry/Foot and Ankle Surgery [address] [place] [address] [place] [address] Assigned Musculoskeletal Provider 11/04/22 Clinic - [facility] 3[address] [facility] [place] [id number] Assigned PCP 07/05/23 documented as of this encounter
--- OUTSIDE RECORDS SUMMARY | 2023-11-02 07:08 | XMS_ITS | Encounter Summary ---
Author Organization [place] Address [address] [place] [address] Care Team Providers Care Office Equipment Technician Name Role Phone Noreen Flores APRN HEAD INSPECTOR AND CENTER MARKER Unavailable Noreen Flores APRN HEAD INSPECTOR AND CENTER MARKER Primary Car e Provider Kalyan Galvan Unavailable Unavailable Lashae Trevino [facility] Unavailable Eduardo Sharma MD Unavailable Rios Monteiro MD Unavailable Marcelo Artis PA-C Unavailable Rodrigo Man PA-C Unavailable [phone] Noreen Flores APRN HEAD INSPECTOR AND CENTER MARKER Unavailable Sudha Greene NP Primary Care Provider Agatha Null DPM, Podiatry /Foot and Ankle Surgery Unavailable Clinic - [facility] Unavailable Encounter Details Date Type Department Care Team (Late st Contact Info) Description 05/31/2019 [facility]ra Moya [facility] [place] [address] [facility] [address] [place] [address] Noreen Flores APRN HEAD INSPECTOR AND CENTER MARKER 7621 [facility] [place] [address] Chronic seasonal allergic [...] Angel Faria RN - 06/02/2019 8:06 AM HEAD COACH Previous Rx did not successful e-scribe to pharmacy. Routing to PCP for approval. Please sent via fax. Multiple attempts in the past year with unsuccessful e-scribing. [facility] - Radu Faria RN Triage [facility] COACH documented in this encounter Plan of [...] as of this encounter Care Teams Office Equipment Technician Relationship Specialty Start Date End Date Noreen Flores APRN CNP [address] [place] [address] [place] [address] PCP - General Nurse Practitioner 01/09/19 12/12/21 Sudha Greene NP [address] [address] PCP - General 11/01/22 Noreen Flores APRN HEAD INSPECTOR AND CENTER MARKER [address] [facility] [place] [address] Assigned PCP 06/16/18 05/26/22 Kalyan Galvan Personal Advocate & Liaison (PAL) 08/08/19 04/26/21 [facility] [address] [place] [address] [place] [address] Pharmacist Pharmacist 10/14/19 12/01/20 Eduardo Sharma MD [address] [place] [address] [place] [address] Assigned Sleep Provider 04/02/2005/07 [place] [address] [place] [address] [place] [address] Assigned Musculoskeletal Provider 04/02/20 08/24/20 Marcelo Artis PA-C [address] [place] [address] [place] [address] Assigned Musculoskeletal Provider 08/25/20 08/20/21 Rodrigo Man PA-C [address] [place] [address] [place] [address] Assigned Surgical Provider 08/25/20 11/27/20 Noreen Flores APRN HEAD INSPECTOR AND CENTER MARKER [facility] [place] [address] Assigned PCP 08/05/22 03/16/23 Agatha Null, DPNita, Podiatry/Foot and Ankle Surgery [address] [place] [address] Assigned Musculoskeletal Provider 11/04/22 Clinic - [facility] [address] [place] [address] Assigned PCP 07/05/23 documented as of this encounter
--- OUTSIDE RECORDS SUMMARY | 2023-11-02 07:08 | XMS_ITS | Encounter Summary ---
Author Organization [place] Address [address] [place] [address] Care Team Providers Care Planer Hand Name Role Phone Noreen Flores APRN, CNP Unavailable Noreen Flores APRN, CNP Primary Car e Provider Kalyan Galvan Unavailable Unavailable Lashae Trevino [facility] Unavailable Eduardo Sharma MD Unavailable Rios Monteiro MD Unavailable Marcelo Artis PA-C Unavailable Rodrigo Man PA-C Unavailable [phone] Noreen Flores APRN COMMUNICATIONS DIRECTOR Unavailable Sudha Greene NP Primary Care Provider [phone] Agatha Null DPM, Podiatry /Foot and Ankle Surgery Unavailable Clinic - [facility] Unavailable Reason for Visit * Reason Comments Medication Refill Encounter Details Date Type Department Care Team (Late st Contact Info) Description 07/10/2020 Refill [facility] [place] [address] [facility] [address] [place] [address] Noreen Flores APRN CNP [facility] [facility] [...] Date Recorded PHQ-2 Score 2 07/25/2018 [facility] [place] of Occupat ional Health - Occupational Stress [...] Desirae Champagne RN - 07/13/2020 11:10 AM CERTIFIED CAREGIVER Routing refill request to provider for review/approval because: Patient taking 8-10 sumatriptan a month. Desirae Champagne RN on 07/13/2020 at 11:11 AM IFIED CAREGIVER * Telephone Encounter - Lainey Wells - 07/12/2020 2:22 PM CST The pt called back and she says that she takes anywhere from 8-10 a month. Lainey Wells on 07/12/2020 at 2:25 PM IFIED CAREGIVER * Telephone Encounter - Lainey Wells - 07/12/2020 10:59 AM CST 1st attempt l/m. Lainey Wells on 07/12/2020 at 10:59 AM IFIED CAREGIVER * Telephone Encounter - Desirae Champagne RN - 07/12/2020 10:02 AM CERTIFIED CAREGIVER Please call patient and see how many doses of sumatriptan patient has used in the past month. Should be using 8 doses or fewer per month. Desirae Champagne RN on 07/12/2020 at 10:07 AM IFIED CAREGIVER documented in this encounter Plan of Treatment [...] as of this encounter Care Teams Planer Hand Relationship Specialty Start Date End Date Noreen Flores APRN COMMUNICATIONS DIRECTOR [address] [place] [address] [place] [address] PCP - General Nurse Practitioner 01/09/19 12/12/21 Sudha Greene NP [address] [address] PCP - General 11/01/22 Noreen Flores APRN COMMUNICATIONS DIRECTOR [address] [place] [address] [place] [address] Assigned PCP 06/16/18 05/26/22 Kalyan Galvan Personal Advocate & Liaison (PAL) 08/08/19 04/26/21 [facility] [address] [place] [address] [place] [address] Pharmacist Pharmacist 10/14/19 12/01/20 Eduardo Sharma MD [address] [address] Assigned Sleep Provider 04/02/2005/07 Rios Monteiro MD [address] [place] [address] Assigned Musculoskeletal Provider 04/02/20 08/24/20 Marcelo Artis PA-C [address] [address] Assigned Musculoskeletal Provider 08/25/20 08/20/21 Rodrigo Man PA-C [address] [place] [address] [place] [address] Assigned Surgical Provider 08/25/20 11/27/20 Noreen Flores APRN COMMUNICATIONS DIRECTOR [address]305 [facility] [place] [address] Assigned PCP 08/05/22 03/16/23 Agatha Null DPM, Podiatry/Foot and Ankle Surgery [address] [place] [address] [place] [id number] Assigned Musculoskeletal Provider 11/04/22 Clinic - [facility] 3305 [facility] [place] [id number] Assigned PCP 07/05/23 documented as of this encounter
--- OUTSIDE RECORDS SUMMARY | 2023-11-02 07:08 | XMS_ITS | Encounter Summary ---
Author Organization [facility] Address [address] [place] [address] Care Team Providers Care Painter Plate Name Role Phone Noreen Flores APRN, CNP Unavailable Noreen Flores APRN, CNP Primary Car e Provider Kalyan Galvan Unavailable Unavailable Lashae Trevino [facility] Unavailable [phone] Eduardo Sharma MD Unavailable Rios Monteiro MD Unavailable [phone] Marcelo Artis PA-C Unavailable [phone] Rodrigo Man PA-C Unavailable [phone] Noreen Flores APRN, CNP Unavailable Sudha Greene NP Primary Care Provider [phone] Agatha Null DPM, Podiatry /Foot and Ankle Surgery Unavailable Clinic - [facility] Unavailable Reason for Visit * Reason Onset Date Comments Refill Request 08/08/2019 DULoxetine (CYMB EDIN) 30 MG capsule Encounter Details Date Type Department Care Team (Late st Contact Info) Description 08/08/2019 Refill [facility] [address] [place] [address] Noreen Flores APRN CNP [address] [facility] [place] [address] Refill Request (DULoxetine (CYMBALTA) 30 MG capsule) [...] Answer Date Recorded PHQ-2 Score 2 07/25/2018 [facility] [place] of Occupat ional Health - Occupational Stress [...] Radha Manning RN - 08/13/2019 10:02 AM ELECTRICAL HARDWARE ENGINEER Noreen: I spoke with the Pt. The Pt has been taking 1, 30 mg capsule, once per day. She does not want to goup to 60 mg. Yasmin sent this in for her. Radha Manning RN [facility] -- Triage Nurse TRICAL HARDWARE ENGINEER * Telephone Encounter - Noreen Hills APRN CNP - 08/11/2019 9:41 AM CST Please verify that she was previously taking 1 tab twice a day. If so, please switch it to 1, 60mg tab, once per day. Pls notify her of the change. TRICAL HARDWARE ENGINEER * Telephone Encounter - Gayathri Mcallister RN - 08/11/2019 9:38 AM ELECTRICAL HARDWARE ENGINEER Please review sig for duloxetine, hydrochlorothiazide and metformin ( per review of last office visit 2000 mg daily of metformin, I am not sure about Duloxetine sig and dispense amount, Thank you) Gayathri Mcallister RN Message handled by Nurse Triage. TRICAL HARDWARE ENGINEER * Telephone Encounter - Kartik Javier - 08/08/2019 5:46 PM CST Also Review Rx directions for Metformin hydrochloride 500 mg. Pharmacy is requesting clarification. TRICAL HARDWARE ENGINEER * Telephone Encounter - Kartik Javier - 08/08/2019 2:39 PM CST Script Clarification: Rx has two sets of directions. Please send new Rx with the Proper Directions. Thanks. TRICAL HARDWARE ENGINEER documented in this encounter Plan of [...] Total Score: 9 08/09/19 20 7:03 AM ELECTRICAL HARDWARE ENGINEER documented as of this encounter Care Teams Painter Plate Relationship Specialty Start Date End Date Noreen Flores APRN AGRICULTURE WORKER [address] [place] [address] [place] [address] PCP - General Nurse Practitioner 01/09/19 12/12/21 Sudha Greene, MAURICIO [address] [address] PCP - General 11/01/22 Noreen Flores APRN AGRICULTURE WORKER [address] [place] [address] [place] [address] Assigned PCP 06/16/18 05/26/22 Kalyan Galvan Personal Advocate & Liaison (PAL) 08/08/19 04/26/21 Lashae Trevino, [facility] [address] [place] [address] Pharmacist Pharmacist 10/14/19 12/01/20 Eduardo Sharma MD [address] [place] [address] [place] [address] Assigned Sleep Provider 04/02/2005/07 [place] [address] [address] Assigned Musculoskeletal Provider 04/02/20 08/24/20 Marcelo Artis PA-C [address] [address] Assigned Musculoskeletal Provider 08/25/20 08/20/21 Rodrigo Man PA-C [address] [address] Assigned Surgical Provider 08/25/20 11/27/20 Noreen Flores APRN AGRICULTURE WORKER [address] [place] [address] [place] [address] Assigned PCP 08/05/22 03/16/23 Agatha Null DPM, Podiatry/Foot and Ankle Surgery 3[address] [facility] [address] [place] [address] Assigned Musculoskeletal Provider 11/04/22 [facility] - [facility] [place] [facility] [address] [place] [address] Assigned PCP 07/05/23 documented as of this encounter
--- OUTSIDE RECORDS SUMMARY | 2023-11-02 07:08 | XMS_ITS | Encounter Summary ---
Author Organization [facility] Address [address] [place] [address] Care Team Providers Care Pharmacy Aide Name Role Phone Noreen Flores APRN CHIEF MEDIA OFFICER Unavailable Noreen Flores APRN CHIEF MEDIA OFFICER Primary Car e Provider Kalyan Galvan Unavailable Unavailable Lashae Trevino [facility] Unavailable Eduardo Sharma MD Unavailable Rios Monteiro MD Unavailable [phone] Marcelo Artis PA-C Unavailable Rodrigo Man PA-C Unavailable [phone] Noreen Flores APRN CHIEF MEDIA OFFICER Unavailable Sudha Greene NP Primary Care Provider [phone] Agatha Null DPM, Podiatry /Foot and Ankle Surgery Unavailable Clinic - [facility] [place] Unavailable Encounter Details Date Type Department Care Team (Late st Contact Info) Description 08/02/[address] [facility] [address] [facility] [address] [place] [address] Lainey Wells Social History Tobacco [...] Answer Date Recorded PHQ-2 Score 2 07/25/2018 [facility] of Occupat ional Health - [...] COVID-19? No / Unsure 07/17/2020 1:32 PM PANTOMIMIST documented as of this encounter Plan of [...] as of this encounter Care Teams Pharmacy Aide Relationship Specialty Start Date End Date Noreen Flores APRN CHIEF MEDIA OFFICER [address] [place] [address] [place] [address] PCP - General Nurse Practitioner 01/09/19 12/12/21 Sudha Greene NP [address] [address] PCP - General 11/01/22 Noreen Flores APRN CHIEF MEDIA OFFICER [address] [place] [address] [place] [address] Assigned PCP 06/16/18 05/26/22 Kalyan Galvan Personal Advocate & Liaison (PAL) 08/08/19 04/26/21 [facility] [address] [place] [address] Pharmacist Pharmacist 10/14/19 12/01/20 Eduardo Sharma MD [address] [facility] 103 [place] [address] Assigned Sleep Provider 04/02/2005/07 [place] [address] [facility] 300 [place] [address] Assigned Musculoskeletal Provider 04/02/20 08/24/20 Marcelo Artis PA-C [address] [facility] 300 [place] [address] Assigned Musculoskeletal Provider 08/25/20 08/20/21 Rodrigo Man PA-C 6545 [facility] 450 [place] [address] Assigned Surgical Provider 08/25/20 11/27/20 Noreen Flores APRN CHIEF MEDIA OFFICER [address] [place] [address] [place] [address] Assigned PCP 08/05/22 03/16/23 Agatha Null DPM, Podiatry/Foot and Ankle Surgery [address] [facility] 300 [place] [address] Assigned Musculoskeletal Provider 11/04/22 [facility] - [place] [place] [facility] [address] [place] [address] Assigned PCP 07/05/23 documented as of this encounter
--- OUTSIDE RECORDS SUMMARY | 2023-11-02 07:08 | XMS_ITS | Encounter Summary ---
Author Organization [place] Address [address] [place] [address] Care Team Providers Care Decision Support Manager Name Role Phone Vanda Guerrero MD Primary Care Provider [phone] Vanda Guerrero MD Unavailable [phone] Jeana-JdNoreen castro APRN JANITORIAL TECH Unavailable [facility]-Noreen Miles APRN JANITORIAL TECH Unavailable [facility]-JdNoreen castro NAPHTHOL SOAPING MACHINE OPERATOR JANITORIAL TECH Primary Car e Provider Kalyan Galvan Unavailable Unavailable Lashae Trevino [facility] Unavailable Eduardo Sharma MD Unavailable Rios Monteiro MD Unavailable Marcelo Artis PA-C Unavailable Rodrigo ManC Unavailable Jeana-Noreen Miles APRN JANITORIAL TECH Unavailable Sudha Greene NP Primary Care Provider Agtaha Null DPM, Podiatry /Foot and Ankle Surgery Unavailable [facility] [place] [place] [facility] Unavailable Reason for Visit * Reason Onset Date Comments Refill Request 03/04/2018 loratadine-pseud oePHEDrine ([facility] ALLERGY RELIEF-D) 10- 240 MG per 24 hr tablet Encounter Details Date Type Department Care Team (Late st Contact Info) Description 03/04/2018 Refill [facility] [place] [address] [place] [address] Vanda Guerrero MD [address] [facility] [place] [address] Refill Request (loratadine-pseudoePHED rine ([facility] ALLERGY RELIEF-D) [...] and in station out basket or on MA/SHAPER SETTER/RN desk * Telephone Encounter - Kartik Javier [...] documented as of this encounter Care Teams Decision Support Manager Relationship Specialty Start Date End Date Vanda Guerrero MD [address] [place] [place] [address] [place] [address] PCP - General Internal Medicine 04/08/15 01/08/19 Vanda Guerrero MD [address] [place] [place] [address] [place] [address] PCP - Assigned PCP 07/24/16 06/15/18 Noreen Flores APRN JANITORIAL TECH [address] [place] [place] [address] [place] [address] PCP - Assigned PCP 06/16/18 08/13/18 Noreen Flores APRN JANITORIAL TECH [address] [place] [place] [address] [place] [address] PCP - General Nurse Practitioner 01/09/19 12/12/21 Sudha Greene NP [address] [address] PCP - General 11/01/22 Noreen Flores APRN JANITORIAL TECH [address] [place] [place] [address] [place] [address] Assigned PCP 06/16/18 05/26/22 Kalyan Galvan Personal Advocate & Liaison (PAL) 08/08/19 04/26/21 [facility] [address] [place] [address] Pharmacist Pharmacist 10/14/19 12/01/20 Eduardo Sharma MD [address] [place] [address] Assigned Sleep Provider 04/02/2005/07 [place] [address] [place] [address] Assigned Musculoskeletal Provider 04/02/20 08/24/20 Marcelo Artis PA-C [address] [place] [address] Assigned Musculoskeletal Provider 08/25/20 08/20/21 Rodrigo Man PA-C [address] [place], [place] [address] Assigned Surgical Provider 08/25/20 11/27/20 Noreen Flores APRN JANITORIAL TECH [address] [place] [place] [address] [place] [address] Assigned PCP 08/05/22 03/16/23 Agatha Null, MARÍA, Podiatry/Foot and Ankle Surgery [address] [place] [address] Assigned Musculoskeletal Provider 11/04/22 [facility] [place] [address] [address] Assigned PCP 07/05/23 documented as of this encounter
--- OUTSIDE RECORDS SUMMARY | 2023-11-02 07:08 | XMS_ITS | Encounter Summary ---
Author Organization [place] Address [address] [place] [address] Care Team Providers Care Binder Cutter Name Role Phone Noreen Flores APRN ARTIFICIAL SNOW MAKING MACHINE OPERATOR Unavailable Noreen Flores APRN ARTIFICIAL SNOW MAKING MACHINE OPERATOR Primary Car e Provider Kalyan Galvan Unavailable Unavailable Lashae Trevino [facility] Unavailable [phone] Eduardo Sharma MD Unavailable Rios Monteiro MD Unavailable Marcelo Artis PA-C Unavailable Rodrigo Man PA-C Unavailable [phone] Noreen Flores APRN ARTIFICIAL SNOW MAKING MACHINE OPERATOR Unavailable Sudha Greene NP Primary Care Provider Agatha Null DPM, Podiatry /Foot and Ankle Surgery Unavailable [facility] [place] Unavailable Encounter Details Date Type Department Care Team (Late st Contact Info) Description 10/28/2019 [facility] [place] [address] [place] [address] Noreen Flores APRN ARTIFICIAL SNOW MAKING MACHINE OPERATOR [address] [facility] [place] [address] Social History Tobacco [...] Answer Date Recorded PHQ-2 Score 2 07/25/2018 [facility] [place] of Occupat ional Health - Occupational [...] Total Score: 9 08/09/19 20 7:03 AM EMR ANALYST documented as of this encounter Care Teams Binder Cutter Relationship Specialty Start Date End Date Jeana-oNreen Miles APRN CNP [address] [facility] [place] [address] PCP - General Nurse Practitioner 01/09/19 12/12/21 Sudha Greene NP [address] [place] [address] PCP - General 11/01/22 Noreen Flores APRN ARTIFICIAL SNOW MAKING MACHINE OPERATOR [facility] [place] [address] Assigned PCP 06/16/18 05/26/22 Kalyan Galvan Personal Advocate & Liaison (PAL) 08/08/19 04/26/21 Lashae Trevino, [facility] [address] [place] [address] [place] [address] Pharmacist Pharmacist 10/14/19 12/01/20 Eduardo Sharma MD [address] [place] [address] Assigned Sleep Provider 04/02/2005/07 [place] [address] [place] [address] Assigned Musculoskeletal Provider 04/02/20 08/24/20 Marcelo Artis PA-C [address] [place] [address] Assigned Musculoskeletal Provider 08/25/20 08/20/21 Rodrigo Man PA-C [address] [place] [address] Assigned Surgical Provider 08/25/20 11/27/20 Noreen Flores APRN ARTIFICIAL SNOW MAKING MACHINE OPERATOR [facility] [place] [address] Assigned PCP 08/05/22 03/16/23 Agatha Null DPM, Podiatry/Foot and Ankle Surgery [address] [place] [address] Assigned Musculoskeletal Provider 11/04/22 [facility] [address] [place], [place] [address] [address] Assigned PCP 07/05/23 documented as of this encounter
--- OUTSIDE RECORDS SUMMARY | 2023-11-02 07:08 | XMS_ITS | Encounter Summary ---
Author Organization [place] Address [address] [place] [address] Care Team Providers Care Vamp Wetter Name Role Phone Noreen Flores APRN OLDER ADULT SOCIAL WORK SPECIALIST Unavailable Noreen Flores APRN OLDER ADULT SOCIAL WORK SPECIALIST Primary Car e Provider Kalyan Galvan Unavailable Unavailable Lashae Trevino [facility] Unavailable [phone] Eduardo Sharma MD Unavailable Marcelo Artis PA-C Unavailable [phone] Rodrigo Man PA-C Unavailable [phone] Noreen Flores APRN OLDER ADULT SOCIAL WORK SPECIALIST Unavailable Sudha Greene NP Primary Care Provider Agatha NullM, Podiatry /Foot and Ankle Surgery Unavailable [facility] [facility] Unavailable Encounter Details Date Type Department [...] 08/08/2019 Attends Club or Organization Meetings Patient uf 08/08/2019 Marital Status 08/08/2019 AUDIT-C Answer Date [...] Answer Date Recorded PHQ-2 Score 2 07/25/2018 [facility] [place] of Occupat ional Health - Occupational Stress [...] as of this encounter Care Teams Vamp Wetter Relationship Specialty Start Date End Date Noreen Flores APRN OLDER ADULT SOCIAL WORK SPECIALIST [address] [facility] [place] [address] PCP - General Nurse Practitioner 01/09/19 12/12/21 Sudha Greene NP [address] [address] PCP - General 11/01/22 Noreen Flores APRN OLDER ADULT SOCIAL WORK SPECIALIST [address] [place] [address] [place] [address] Assigned PCP 06/16/18 05/26/22 Kalyan Galvan Personal Advocate & Liaison (PAL) 08/08/19 04/26/21 Lashae Trevino [facility] [place] [phone] Pharmacist Pharmacist 10/14/19 12/01/20 Eduardo Sharma MD [address] [place] [address] Assigned Sleep Provider 04/02/2005/07 Marcelo Artis PA-C [address] [facility] [address] [place], [place] [address] Assigned Musculoskeletal Provider 08/25/20 08/20/21 Rodrigo Man PA-C [address] [place] [address] Assigned Surgical Provider 08/25/20 11/27/20 Noreen Flores APRN OLDER ADULT SOCIAL WORK SPECIALIST [address] [facility] [place] [address] Assigned PCP 08/05/22 03/16/23 Agatha Null DPM, Podiatry/Foot and Ankle Surgery [address] [place] [address] Assigned Musculoskeletal Provider 11/04/22 [facility] [place] [facility] [address] [facility] [place] [id number] Assigned PCP 07/05/23 documented as of this encounter
--- OUTSIDE RECORDS SUMMARY | 2023-11-02 07:08 | XMS_ITS | Encounter Summary ---
Author Organization [place] Address [address] [place] [address] Care Team Providers Care Fabric Worker Fitter Name Role Phone Noreen Flores APRN MUCKING MACHINE OPERATOR Unavailable Noreen Flores APRN MUCKING MACHINE OPERATOR Primary Car e Provider Kalyan Galvan Unavailable Unavailable Lashae Trevino [facility] Unavailable [phone] Eduardo Sharma MD Unavailable Rios Monteiro MD Unavailable Marcelo Artis PA-C Unavailable Rodrigo ManC Unavailable [phone] Noreen Flores APRN MUCKING MACHINE OPERATOR Unavailable Sudha Greene NP Primary Care Provider Agatha Null DPM, Podiatry /Foot and Ankle Surgery Unavailable [facility] - [place] [place] [facility] Unavailable Encounter Details Date Type Department Care Team (Late st Contact Info) Description 10/14/2019 [facility] Lucy Moya [facility] [place] [address] [facility] [address] [place] [address] Lashae Trevino, [facility] [address] [facility] [place] [address] Social History Tobacco [...] Answer Date Recorded PHQ-2 Score 2 07/25/2018 [facility] [place] of Occupat ional Health - Occupational Stress [...] Total Score: 9 08/09/19 20 7:03 AM RADIATION CONTROL TECHNICIAN documented as of this encounter Care Teams Fabric Worker Fitter Relationship Specialty Start Date End Date Noreen Flores APRN MUCKING MACHINE OPERATOR [address] [place] [address] [place] [address] PCP - General Nurse Practitioner 01/09/19 12/12/21 Sudha Greene, MAURICIO [address] [address] PCP - General 11/01/22 Noreen Flores APRN MUCKING MACHINE OPERATOR [address] [place] [address] [place] [address] Assigned PCP 06/16/18 05/26/22 Kalyan Galvan Personal Advocate & Liaison (PAL) 08/08/19 04/26/21 Lashae Trveino, [facility] [address] [place] [address] Pharmacist Pharmacist 10/14/19 12/01/20 Eduardo Sharma MD [address] [place] [address] Assigned Sleep Provider 04/02/2005/07 [place] [address] [facility] [address] [place] [address] Assigned Musculoskeletal Provider 04/02/20 08/24/20 Marcelo Artis PA-C [address] [facility] [address] [place] [address] Assigned Musculoskeletal Provider 08/25/20 08/20/21 Rodrigo Man PA-C [address] [address] Assigned Surgical Provider 08/25/20 11/27/20 Noreen Flores APRN MUCKING MACHINE OPERATOR [address] [place] [address] [place] [address] Assigned PCP 08/05/22 03/16/23 Agatha Null DPM, Podiatry/Foot and Ankle Surgery [address] [place] [address] 300 [place] [address] Assigned Musculoskeletal Provider 11/04/22 [facility] [place] [facility] [address] [facility] [place] [id number] Assigned PCP 07/05/23 documented as of this encounter
--- OUTSIDE RECORDS SUMMARY | 2023-11-02 07:08 | XMS_ITS | Encounter Summary ---
Author Organization [place] Address [address] [place] [address] Care Team Providers Care Utility Helicopter Repairer Name Role Phone Noreen Flores APRN LINEN TECH Unavailable Noreen Flores APRN LINEN TECH Primary Car e Provider Kalyan Galvan Unavailable Unavailable Lashae Trevino [facility] Unavailable [phone] Eduardo Sharma MD Unavailable Rios Monteiro MD Unavailable Marcelo Artis PA-C Unavailable [phone] Rordigo Man PA-C Unavailable [phone] Noreen Flores APRN, CNP Unavailable Sudha Greene [...] st Contact Info) Description 06/14/2020 [facility] [address] [facility] [address] [place] [address] Jeana-Noreen Miles, REGIONAL OPERATIONS DIRECTOR LINEN TECH [address] [facility] [place] [address] Refill Request (blood glucose monitoring (ONE TOUCH [...] Score 2 07/25/2018 [facility] [place] of Occupat ional Health - Occupational Stress [...] Christy Pelayo RN - 06/16/2020 11:04 AM POLICE DETENTION ATTENDANT Prescription approved per [facility] Refill Protocol. Christy Pelayo RN Flex CE DETENTION ATTENDANT * Telephone Encounter - Candy Wilda - 06/14/2020 3:55 PM CST Request from pharmacy states: ONE TOUCH VERIO TEST STRIPS and ONE TOUCH 30G DELICA LNC, CE DETENTION ATTENDANT documented in this encounter [...] as of this encounter Care Teams Utility Helicopter Repairer Relationship Specialty Start Date End Date Jeana-Noreen Miles APRN LINEN TECH [address] [place] [address] [place] [address] PCP - General Nurse Practitioner 01/09/19 12/12/21 Sudha Greene NP [facility] [address] [address] PCP - General 11/01/22 Noreen Flores APRN LINEN TECH [address] [place] [address] [place] [address] Assigned PCP 06/16/18 05/26/22 Kalyan Galvan Personal Advocate & Liaison (PAL) 08/08/19 04/26/21 [facility] [address] [place] [address] [place] [address] Pharmacist Pharmacist 10/14/19 12/01/20 Eduardo Sharma MD [address] [place] [address] Assigned Sleep Provider 04/02/2005/07 [place] [address] [place] [address] Assigned Musculoskeletal Provider 04/02/20 08/24/20 Marcelo Artis PA-C [address] [place] [address] Assigned Musculoskeletal Provider 08/25/20 08/20/21 Rodrigo Man PA-C [address] [place], [place] [address] Assigned Surgical Provider 08/25/20 11/27/20 Noreen Flores APRN LINEN TECH [facility] [place] [address] Assigned PCP 08/05/22 03/16/23 Agatha Null, MARÍA, Podiatry/Foot and Ankle Surgery [address] [place] [address] Assigned Musculoskeletal Provider 11/04/22 Clinic - [place] [place] [address] [place] [address] Assigned PCP 07/05/23 documented as of this encounter
--- OUTSIDE RECORDS SUMMARY | 2023-11-02 07:08 | XMS_ITS | Encounter Summary ---
Author Organization [place] Address [address] [place] [address] Care Team Providers Care Hospice Superintendent Name Role Phone Noreen Flores APRN COVER STITCH MACHINE OPERATOR Unavailable Noreen Flores APRN COVER STITCH MACHINE OPERATOR Primary Car e Provider Kalyan Galvan Unavailable Unavailable Lashae Trevino [facility] Unavailable Eduardo Sharma MD Unavailable Rios Monteiro MD Unavailable Marcelo Artis PA-C Unavailable Rodrigo Man PA-C Unavailable [phone] Noreen Flores APRN COVER STITCH MACHINE OPERATOR Unavailable Sudha Greene NP Primary Care Provider Agatha Null DPM, Podiatry /Foot and Ankle Surgery Unavailable Clinic - [place] [place] [facility] Unavailable Encounter Details Date Type Department Care Team (Late st Contact Info) Description 07/15/2020 Myra Moya [facility] [place] [address] [place] [address] Noreen Flores APRN COVER STITCH MACHINE OPERATOR [address] [facility] [place] [address] Social History Tobacco [...] Answer Date Recorded PHQ-2 Score 2 07/25/2018 [facility] [place] of Occupat ional Health - Occupational Stress [...] COVID-19? No / Unsure 07/17/2020 1:32 PM SEARCH MARKETING SPECIALIST documented as of this encounter Plan of [...] as of this encounter Care Teams Hospice Superintendent Relationship Specialty Start Date End Date Noreen Flores APRN COVER STITCH MACHINE OPERATOR [address] [place] [address] [place] [address] PCP - General Nurse Practitioner 01/09/19 12/12/21 Sudha Greene, MAURICIO [address] [address] PCP - General 11/01/22 Noreen Flores APRN COVER STITCH MACHINE OPERATOR [address] [place] [address] [place] [address] Assigned PCP 06/16/18 05/26/22 Kalyan Galvan Personal Advocate & Liaison (PAL) 08/08/19 04/26/21 Lashae Trevino [facility] [address] [place] [address] Pharmacist Pharmacist 10/14/19 12/01/20 Eduardo Sharma MD [address] [place] [address] [place] [address] Assigned Sleep Provider 04/02/2005/07 [place] [address] [address] Assigned Musculoskeletal Provider 04/02/20 08/24/20 Marcelo Artis PA-C [address] [address] Assigned Musculoskeletal Provider 08/25/20 08/20/21 Rodrigo Man PA-C [address] [address] Assigned Surgical Provider 08/25/20 11/27/20 Noreen Flores APRN COVER STITCH MACHINE OPERATOR [address] [place] [address] [place] [address] Assigned PCP 08/05/22 03/16/23 Agatha Null DPM, Podiatry/Foot and Ankle Surgery [address] [facility] [address] [place] [address] Assigned Musculoskeletal Provider 11/04/22 [facility] [place] [facility] [address] [facility] [place] [address] Assigned PCP 07/05/23 documented as of this encounter
--- OUTSIDE RECORDS SUMMARY | 2023-11-02 07:08 | XMS_ITS | Encounter Summary ---
Author Organization [place] Address [address] [place] [address] Care Team Providers Care Assembler Bonding Name Role Phone Noreen Flores APRN, CNP Unavailable Noreen Flores APRN, CNP Primary Car e Provider Kalyan Galvan Unavailable Unavailable Lashae Trevino [facility] Unavailable Eduardo Sharma MD Unavailable Rios Monteiro MD Unavailable [phone] Marcelo Artis PA-C Unavailable [phone] Rodrigo Man PA-C Unavailable [phone] Noreen Flores APRN PUSHCART PEDDLER Unavailable Sudha Greene NP Primary Care Provider Agatha Null DPM, Podiatry /Foot and Ankle Surgery Unavailable Clinic - [place] [facility] Unavailable Reason for Visit * Reason Comments Medication Refill Encounter Details Date Type Department Care Team (Late st Contact Info) Description 06/18/2020 Refill [facility] [place] [address] [place] [address] Noreen Flores APRN CNP [address] [facility] [place] [address] Medication Refill Social [...] 2 07/25/2018 [facility] [place] of Occupat ional Health - Occupational Stress [...] Desirae Champagne RN - 06/18/2020 10:53 AM SEMICONDUCTOR PACKAGES LEAK TESTER Prescription approved per [facility] Refill Protocol. Desirae Champagne RN on 06/18/2020 at 10:52 AM CONDUCTOR PACKAGES LEAK TESTER documented in this encounter Plan of [...] as of this encounter Care Teams Assembler Bonding Relationship Specialty Start Date End Date Noreen Flores APRN PUSHCART PEDDLER [address] [place] [address] [place] [address] PCP - General Nurse Practitioner 01/09/19 12/12/21 Sudha Greene, MAURICIO [address] [address] PCP - General 11/01/22 Noreen Flores APRN PUSHCART PEDDLER [address] [place] [address] [place] [address] Assigned PCP 06/16/18 05/26/22 Kalyan Galvan Personal Advocate & Liaison (PAL) 08/08/19 04/26/21 Lashae Trevino, [facility] [address] [place] [address] [place] [address] Pharmacist Pharmacist 10/14/19 12/01/20 Eduardo Sharma MD [address] [place] [address] Assigned Sleep Provider 04/02/2005/07 [place] [address] [facility] 300 [place] [address] Assigned Musculoskeletal Provider 04/02/20 08/24/20 Marcelo Artis PA-C [address] [facility] [address] [place] [address] Assigned Musculoskeletal Provider 08/25/20 08/20/21 Rodrigo Man PA-C [address] [place] [address] Assigned Surgical Provider 08/25/20 11/27/20 Noreen Flores APRN CNP [address] [place] [address] [place] [address] Assigned PCP 08/05/22 03/16/23 Agatha Null DPM, Podiatry/Foot and Ankle Surgery [address] [place] [address] [address] [place] [address] Assigned Musculoskeletal Provider 11/04/22 [facility] [place] [facility] [address] [facility] [place] [address] Assigned PCP 07/05/23 documented as of this encounter
--- OUTSIDE RECORDS SUMMARY | 2023-11-02 07:08 | XMS_ITS | Encounter Summary ---
Author Organization [place] Address [address] [place] [address] Care Team Providers Care Mixing Pan Tender Name Role Phone Noreen Flores APRN, CNP Unavailable Noreen Flores APRN, CNP Primary Car e Provider Kalyan Galvan Unavailable Unavailable Lashae Trevino [facility] Unavailable Eduardo Sharma MD Unavailable Rios Monteiro MD Unavailable Marcelo Artis PA-C Unavailable Rodrigo Man PA-C Unavailable [phone] Noreen Flores APRN, CNP Unavailable Sudha Greene NP Primary Care Provider Agatha Null DPM, Podiatry /Foot and Ankle Surgery Unavailable Clinic - [place] [facility] Unavailable Reason for Visit * Reason Onset Date Comments Medication Refill 04/25/2019 metFORMIN (GLU COPHAGE) 500 MG tablet Encounter Details Date Type Department Care Team (Late st Contact Info) Description 04/25/2019 Refill M [facility] [place] [address] [place] [address] Noreen Flores APRN CNP [address] [facility] [place] [address] Medication Refill (metFORMIN (GLUCOPHAGE) 500 MG tablet) [...] Kimberley Bryan RN - 04/28/2019 11:47 AM REPLENISHMENT BUYER Routing refill request to provider for review/approval because: Labs not current: LDL, creatinine Due for appointment ENISHMENT BUYER * Telephone Encounter - Lara Villalba - [...] & Orders section of the refill encounter. ENISHMENT BUYER documented in this encounter Plan of [...] documented as of this encounter Care Teams Mixing Pan Tender Relationship Specialty Start Date End Date Noreen Flores APRN UPKEEP WORKER [address] [place] [address] [place] [address] PCP - General Nurse Practitioner 01/09/19 12/12/21 Sudha Greene NP [facility] - [address] [place] [address] PCP - General 11/01/22 Noreen Flores APRN UPKEEP WORKER [address] [place] [address] [place] [address] Assigned PCP 06/16/18 05/26/22 Kalyan Galvan Personal Advocate & Liaison (PAL) 08/08/19 04/26/21 [facility] [address] [place] [address] [place] [address] Pharmacist Pharmacist 10/14/19 12/01/20 Eduardo Sharma MD [address] [place] [address] [place] [address] Assigned Sleep Provider 04/02/2005/07 [place] [address] [place] [address] [place] [address] Assigned Musculoskeletal Provider 04/02/20 08/24/20 Marcelo Artis PA-C [address] [place] [address] [place] [address] Assigned Musculoskeletal Provider 08/25/20 08/20/21 Rodrigo Man PA-C [address] [place] [address] [place], [place] [address] Assigned Surgical Provider 08/25/20 11/27/20 Noreen Flores APRN UPKEEP WORKER [facility] [place] [address] Assigned PCP 08/05/22 03/16/23 Agatha Null DPM, Podiatry/Foot and Ankle Surgery [address] [place] [address] Assigned Musculoskeletal Provider 11/04/22 [facility] - [place] [address] [place] [address] Assigned PCP 07/05/23 documented as of this encounter
--- OUTSIDE RECORDS SUMMARY | 2023-11-02 07:08 | XMS_ITS | Encounter Summary ---
Author Organization [place] Address [address] [place] [address] Care Team Providers Care Corncob Pipe Supervisor Name Role Phone Noreen Flores APRN, CNP Unavailable Noreen Flores APRN, CNP Primary Car e Provider Kalyan Galvan Unavailable Unavailable Lashae Trevino [facility] Unavailable Eduardo Sharma MD Unavailable Rios Monteiro MD Unavailable [phone] Marcelo Artis PA-C Unavailable Rodrigo Man PA-C Unavailable [phone] Noreen Flores APRN BINDER CUTTER HAND Unavailable Sudha Greene NP Primary Care Provider Agatha Null DPM, Podiatry /Foot and Ankle Surgery Unavailable Clinic - [place] [facility] Unavailable Reason for Visit * Reason Onset Date Comments Outreach 12/09/2019 Encounter Details Date Type Department Care Team (Late st Contact Info) Description 12/09/2019 [facility] [place] [address] [place] [address] Noreen Flores APRN CNP [address] [facility] [place] [id number] Outreach Social History Tobacco Use Types Packs/Day [...] Answer Date Recorded PHQ-2 Score 2 07/25/2018 [facility] [place] of Occupat ional Health - Occupational Stress [...] Called pharmacy noted that pt did not tile picker the Imitrex 50 mg. Additionally, pharmacy requested that an order be faxed for the Loratadine-d as the e-prescribe didnot transmit to them. Fax number: [phone] Kalyan Galvan, EMT at 9:53 AM on December 11, 2019 Clinic Health Guide [phone] documented in this encounter Plan of Treatment [...] Total Score: 9 08/09/19 20 7:03 AM PRESS BOX CUSTODIAN documented as of this encounter Care Teams Corncob Pipe Supervisor Relationship Specialty Start Date End Date Noreen Flores APRN BINDER CUTTER HAND [address] [place] [address] [place] [address] PCP - General Nurse Practitioner 01/09/19 12/12/21 Sudha Greene NP [address] [address] PCP - General 11/01/22 Noreen Flores APRN BINDER CUTTER HAND [address] [place] [address] [place] [address] Assigned PCP 06/16/18 05/26/22 Kalyan Galvan Personal Advocate & Liaison (PAL) 08/08/19 04/26/21 Lashae Trevino, [facility] [address] [facility] [place] [address] Pharmacist Pharmacist 10/14/19 12/01/20 Eduardo Sharma MD [address] [place] [address] [place] [address] Assigned Sleep Provider 04/02/2005/07 [place] [address] [place] [address] [place] [address] Assigned Musculoskeletal Provider 04/02/20 08/24/20 Marcelo Artis PA-C [address] [place] [address] [place] [address] Assigned Musculoskeletal Provider 08/25/20 08/20/21 Rodrigo Man PA-C [address] [place] [address] [place] [address] Assigned Surgical Provider 08/25/20 11/27/20 Noreen Flores APRN BINDER CUTTER HAND [address] [facility] [place] [address] Assigned PCP 08/05/22 03/16/23 Agatha Null, DPM, Podiatry/Foot and Ankle Surgery [address] [facility] 300 [place] [address] Assigned Musculoskeletal Provider 11/04/22 [facility] - [place] [address] [place] [address] Assigned PCP 07/05/23 documented as of this encounter
--- OUTSIDE RECORDS SUMMARY | 2023-11-02 07:08 | XMS_ITS | Encounter Summary ---
Author Organization [place] Address [address] [place] [address] Care Team Providers Care Polygraph Technician Name Role Phone Vanda Guerrero MD Primary Care Provider [phone] Noreen Flores APRN WATER CARTER Unavailable Noreen Flores APRN WATER CARTER Primary Car e Provider Kalyan Galvan Unavailable Unavailable Lashae Trevino [facility] Unavailable [phone] Eduardo Sharma MD Unavailable Rios Monteiro MD Unavailable [phone] Marcelo Artis PA-C Unavailable Rodrigo Man PA-C Unavailable [phone] Noreen Flores APRN WATER CARTER Unavailable Sudha Greene NP Primary Care Provider Agatha Null DPM, Podiatry /Foot and Ankle Surgery Unavailable Clinic - [place] [facility] Unavailable Encounter Details Date Type Department Care Team (Late st Contact Info) Description 12/09/2018 [facility] [address] [facility] [address] [place] [address] Christi Panda MA Social History Tobacco [...] Depression Total Score: 7 06/25/19 9:49 AM MFTS documented as of this encounter Care Teams Polygraph Technician Relationship Specialty Start Date End Date Vanda Guerrero MD [address] [place] [address] [place] [address] PCP - General Internal Medicine 04/08/15 01/08/19 Noreen Flores APRN WATER CARTER [address] [place] [address] [place] [address] PCP - General Nurse Practitioner 01/09/19 12/12/21 Sudha Greene NP [address] [address] PCP - General 11/01/22 Noreen Flores APRN WATER CARTER [address] [place] [address] [place] [address] Assigned PCP 06/16/18 05/26/22 Kalyan Galvan Personal Advocate & Liaison (PAL) 08/08/19 04/26/21 Lashae Trevino [facility] [address] [facility] [place] [address] Pharmacist Pharmacist 10/14/19 12/01/20 Eduardo Sharma MD [address] [place] [address] [place], [place] [address]155 Assigned Sleep Provider 04/02/2005/07 [place] [id number] [place] [address] 300 [place] 129707 Assigned Musculoskeletal Provider 04/02/20 08/24/20 Marcelo Artis PA-C [address] [place] [address] 300 [place] [address] Assigned Musculoskeletal Provider 08/25/20 08/20/21 Rodrigo Man PA-C [address] [place] [address] [place] [address] Assigned Surgical Provider 08/25/20 11/27/20 Noreen Flores APRN WATER CARTER [address] [place] [address] [place] [id number] Assigned PCP 08/05/22 03/16/23 Agatha Null DPM, Podiatry/Foot and Ankle Surgery [address] [place] [address] [facility] 300 [place] [address] Assigned Musculoskeletal Provider 11/04/22 [facility] - [place] [facility] [address] [facility] [place] [address] Assigned PCP 07/05/23 documented as of this encounter
--- OUTSIDE RECORDS SUMMARY | 2023-11-02 07:08 | XMS_ITS | Encounter Summary ---
Author Organization [place] Address [address] [place] [address] Care Team Providers Care Government Affairs Manager Name Role Phone Vanda Guerrero MD Primary Care Provider [phone] Noreen Flores APRN VISUAL AND STOCK ASSOCIATE Unavailable Noreen Flores APRN VISUAL AND STOCK ASSOCIATE Primary Car e Provider Kalyan Galvan Unavailable Unavailable Lashae Trevino [facility] Unavailable Eduardo Sharma MD Unavailable Rios Monteiro MD Unavailable Marcelo Artis PA-C Unavailable Rodrigo Man PA-C Unavailable [phone] Noreen Flores APRN VISUAL AND STOCK ASSOCIATE Unavailable Sudha Greene NP Primary Care Provider Agatha Null DPM, Podiatry /Foot and Ankle Surgery Unavailable Clinic - [place] [facility] Unavailable Encounter Details Date Type Department Care Team (Late st Contact Info) Description 12/05/2018 Myra Moya [facility] [place] [address] [place] [address] Noreen Flores APRN VISUAL AND STOCK ASSOCIATE [address] [facility] [place] [address] Social History Tobacco Use Types Packs/Day Years [...] Time PHQ-9 Depression Total Score: 7 06/25/19 19 9:49 AM SWAGE TENDER documented as of this encounter Care Teams Government Affairs Manager Relationship Specialty Start Date End Date Vanda Guerrero MD [address] [facility] [place] [address] PCP - General Internal Medicine 04/08/15 01/08/19 Noreen Flores APRN VISUAL AND STOCK ASSOCIATE [address] [place] [address] [place] [address] PCP - General Nurse Practitioner 01/09/19 12/12/21 Sudha Greene NP [address] [address] PCP - General 11/01/22 Noreen Flores APRN VISUAL AND STOCK ASSOCIATE [address] [place] [address] [place] [address] Assigned PCP 06/16/18 05/26/22 Kalyan Galvan Personal Advocate & Liaison (PAL) 08/08/19 04/26/21 Lashae Trevino, [facility] [address] Pharmacist Pharmacist 10/14/19 12/01/20 Eduardo Sharma MD [address] [place] [address] [place], [place] [address] Assigned Sleep Provider 04/02/2005/07 [place] [address] [facility] 300 [place] [address] Assigned Musculoskeletal Provider 04/02/20 08/24/20 Marcelo Artis PA-C [address] [facility] 300 [place] [address] Assigned Musculoskeletal Provider 08/25/20 08/20/21 Rodrigo Man PA-C [address] [place] [address] [place] [address] Assigned Surgical Provider 08/25/20 11/27/20 Noreen Flores APRN VISUAL AND STOCK ASSOCIATE [address] [facility] [place] [address] Assigned PCP 08/05/22 03/16/23 Agatha Null, DPM, Podiatry/Foot and Ankle Surgery [address] [facility] 300 [place], [place] [address] Assigned Musculoskeletal Provider 11/04/22 [facility] - [place] [address] [place] [address] Assigned PCP 07/05/23 documented as of this encounter
--- OUTSIDE RECORDS SUMMARY | 2023-11-02 07:08 | XMS_ITS | Encounter Summary ---
Author Organization [place] Address [address] [place] [address] Care Team Providers Care Prototype Engineer Manager Name Role Phone Noreen Flores APRN, CNP Unavailable Noreen Flores APRN, CNP Primary Car e Provider Kalyan Galvan Unavailable Unavailable Lashae Trevino [facility] Unavailable Eudardo Sharma MD Unavailable Rios Monteiro MD Unavailable Marcelo Artis PA-C Unavailable [phone] Rodrigo Man PA-C Unavailable [phone] Noreen Flores APRN, CNP Unavailable Sudha Greene NP Primary Care Provider Agatha Null DPM, Podiatry /Foot and Ankle Surgery Unavailable Clinic - [place] [place] [facility] Unavailable Reason for Visit * Reason Onset Date Comments Refill Request 05/29/2020 omeprazole (PRIL OSEC) [address] capsule Encounter Details Date Type Department Care Team (Late st Contact Info) Description 05/29/2020 Refill M [facility] [address] [facility] [address] [place] [address] Noreen Flores APRN CNP [address] [facility] [place] [address] Refill Request (omeprazole (PRILOSEC) [address] [...] Answer Date Recorded PHQ-2 Score 2 07/25/2018 [facility] [place] of Occupat ional Health - Occupational Stress [...] Keyona Mantilla RN - 05/31/2020 10:42 AM BILL ADJUSTER Patient has refills remaining with requesting pharmacy. Keyona Palacios - Registered Nurse [facility] Acute and Diagnostic Services ADJUSTER * Telephone Encounter - Kartik Javier - 05/29/2020 5:01 PM CST Alternative Requested: Insurance covers max 90 days in a year. Please submit PA to continue therapy. ADJUSTER documented in this encounter Plan of Treatment [...] documented as of this encounter Care Teams Prototype Engineer Manager Relationship Specialty Start Date End Date Noreen Flores APRN RIB CLOTH KNITTER [address] [place] [address] [place] [address] PCP - General Nurse Practitioner 01/09/19 12/12/21 Sudha Greene NP [address] [address] PCP - General 11/01/22 Noreen Flores APRN RIB CLOTH KNITTER [address] [place] [address] [place] [address] Assigned PCP 06/16/18 05/26/22 Kalyan Galvan Personal Advocate & Liaison (PAL) 08/08/19 04/26/21 Lashae Trevino, [facility] [address] [facility] [place] [address] Pharmacist Pharmacist 10/14/19 12/01/20 Eduardo Sharma MD [address] [place] [address] [place] [address]85 Assigned Sleep Provider 04/02/2005/07 [place] [address] [place] [address] [place] [address] Assigned Musculoskeletal Provider 04/02/20 08/24/20 Marcelo Artis PA-C [address] [place] [address] [place], [place] [address] Assigned Musculoskeletal Provider 08/25/20 08/20/21 Rodrigo Man PA-C [address] [place] [address] [place] [address] Assigned Surgical Provider 08/25/20 11/27/20 Noreen Flores APRN RIB CLOTH KNITTER [address] [facility] [place] [address] Assigned PCP 08/05/22 03/16/23 Agatha Null, DPM, Podiatry/Foot and Ankle Surgery [address] [facility] 300 [place] [address] Assigned Musculoskeletal Provider 11/04/22 [facility] [place] [address] [place] [address] Assigned PCP 07/05/23 documented as of this encounter
--- OUTSIDE RECORDS SUMMARY | 2023-11-02 07:08 | XMS_ITS | Encounter Summary ---
Author Organization [place] Address [address] [place] [address] Care Team Providers Care Engine Watchman Name Role Phone Noreen Flores APRN COURT STENOGRAPHER Unavailable Noreen Flores APRN COURT STENOGRAPHER Primary Car e Provider Kalyan Galvan Unavailable Unavailable Lashae Trevino [facility] Unavailable Eduardo Sharma MD Unavailable Rios Monteiro MD Unavailable Marcelo Artis PA-C Unavailable Rodrigo Man PA-C Unavailable [phone] STENOGRAPHER Unavailable Sudha Greene NP Primary Care Provider Agatha Null DPM, Podiatry /Foot and Ankle Surgery Unavailable Clinic - [place] [facility] Unavailable Encounter Details Date Type Department Care Team (Late st Contact Info) Description 05/30/2019 Myra Moya [facility] [address] [facility] [address] [place] [address] Christi Panda MA Social History [...] as of this encounter Care Teams Engine Watchman Relationship Specialty Start Date End Date Noreen Flores APRN COURT STENOGRAPHER [address] [facility] [place] [address] PCP - General Nurse Practitioner 01/09/19 12/12/21 Sudha Greene NP [address] [address] PCP - General 11/01/[address] STENOGRAPHER [address] [place] [address] [place] [address] Assigned PCP 06/16/18 05/26/22 Kalyan Galvan Personal Advocate & Liaison (PAL) 08/08/19 04/26/21 Lashae Trevino [facility] [address] [place] [address] Pharmacist Pharmacist 10/14/19 12/01/20 Eduardo Sharma MD [address] [place] [address] [place] [address] Assigned Sleep Provider 04/02/2005/07 [place] [id number] [place] [address] 300 [place] [address] Assigned Musculoskeletal Provider 04/02/20 08/24/20 Marcelo Artis PA-C [address] [place] [address] 300 [place] [address] Assigned Musculoskeletal Provider 08/25/20 08/20/21 Rodrigo Man PA-C [address] [facility] 450 [place] [address] Assigned Surgical Provider 08/25/20 11/27/[address] STENOGRAPHER [address] [place] [address] [place] [id number] Assigned PCP 08/05/22 03/16/23 Agatha Null DPM, Podiatry/Foot and Ankle Surgery [address] [place] [address] [facility] 300 [place] [address] Assigned Musculoskeletal Provider 11/04/22 Clinic - [place] [place] [facility] [address] [facility] [place] [address] Assigned PCP 07/05/23 documented as of this encounter
--- OUTSIDE RECORDS SUMMARY | 2023-11-02 07:08 | XMS_ITS | Encounter Summary ---
Author Organization [place] Address [address] [place] [address] Care Team Providers Care Substance Addiction Coordinator Name Role Phone Noreen Flores APRN TELETYPIST Unavailable Noreen Flores APRN TELETYPIST Primary Car e Provider Kalyan Galvan Unavailable Unavailable Lashae Trevino [facility] Unavailable Eduardo Sharma MD Unavailable Rios Monteiro MD Unavailable Marcelo Artis PA-C Unavailable [phone] Rodrigo Man PA-C Unavailable [phone] Noreen Flores APRN TELETYPIST Unavailable Sudha Greene NP Primary Care Provider Agatha Null DPM, Podiatry /Foot and Ankle Surgery Unavailable Clinic - [place] [facility] Unavailable Encounter Details Date Type Department Care Team (Late st Contact Info) Description 01/22/2019 Myra Moya [facility] [place] [address] [facility] [address] [place] [address] Marcelo Trejo, PT [address] [place] [address] Social History Tobacco Use Types [...] documented as of this encounter Care Teams Substance Addiction Coordinator Relationship Specialty Start Date End Date Noreen Flores APRN TELETYPIST [address] [place] [address] [place] [address] PCP - General Nurse Practitioner 01/09/19 12/12/21 Sudha Greene, [place] [address] [address] PCP - General 11/01/22 Noreen Flores APRN TELETYPIST [address] [place] [address] [place] [address] Assigned PCP 06/16/18 05/26/22 Kalyan Galvan Personal Advocate & Liaison (PAL) 08/08/19 04/26/21 Lashae Trevino, [facility] [address] [place] [address] [place] [address] Pharmacist Pharmacist 10/14/19 12/01/20 Eduardo Sharma MD [address] [place] [address] [place] [address] Assigned Sleep Provider 04/02/2005/07 [place] [address] [facility] 300 [place] [address] Assigned Musculoskeletal Provider 04/02/20 08/24/20 Marcelo Artis PA-C [address] [facility] 300 [place] [address] Assigned Musculoskeletal Provider 08/25/20 08/20/21 Rodrigo Man PA-C [address] [place] [address] [place] [address] Assigned Surgical Provider 08/25/20 11/27/20 Noreen Flores APRN CNP [address] [place] [address] [place] [address] Assigned PCP 08/05/22 03/16/23 Agatha Null DPM, Podiatry/Foot and Ankle Surgery [address] [place] [address] [address] [place] [address] Assigned Musculoskeletal Provider 11/04/22 [facility] [place] [facility] [address] [place] [address] [place] [address] Assigned PCP 07/05/23 documented as of this encounter
--- OUTSIDE RECORDS SUMMARY | 2023-11-02 07:09 | XMS_ITS | Encounter Summary ---
Author Organization [place] Address [address] [place] [address] Care Team Providers Care Underpresser Hand Name Role Phone Vanda Guerrero MD Primary Care Provider [phone] Vanda Guerrero MD Unavailable [phone] Jeana-Noreen Miles APRN INSULATION FOREMAN Unavailable [facility]Noreen Miles APRN INSULATION FOREMAN Unavailable [facility]-JdNoreen castro AUTOMATIC GRINDER OPERATOR INSULATION FOREMAN Primary Car e Provider Kalyan Galvan Unavailable Unavailable Lashae Trevino [facility] Unavailable [phone] Eduardo Sharma MD Unavailable Rios Monteiro MD Unavailable Marcelo Artis PA-C Unavailable Rodrigo ManC Unavailable Jeana-Noreen Miles APRN INSULATION FOREMAN Unavailable Sudha Greene NP Primary Care Provider Agatha Null DPM, Podiatry /Foot and Ankle Surgery Unavailable [facility] - [place] [facility] Unavailable Reason for Visit * Reason Onset Date Comments Derm Problem 01/20/2016 Encounter Details Date Type Department Care Team (Late st Contact Info) Description 01/20/2016 [facility] [address] [place] [address] [place] [address] Vanda Guerrero MD [address] [place] [address] [place] [address] Derm Problem Social History Tobacco Use Types [...] Noted Time PHQ-9 Depression Total Score: 10 0714/2 016 7:15 AM CDT documented as of this encounter Care Teams Underpresser Hand Relationship Specialty Start Date End Date Vanda Guerrero MD [address] [place] [address] [place] [address] PCP - General Internal Medicine 04/08/15 01/08/19 Vanda Guerrero MD [address] [place] [address] [place] [address] PCP - Assigned PCP 07/24/16 06/15/18 Noreen Flores APRN INSULATION FOREMAN [address] [place] [address] [place] [address] PCP - Assigned PCP 06/16/18 08/13/18 Noreen Flores APRN INSULATION FOREMAN [address] [facility] [place] [address] PCP - General Nurse Practitioner 01/09/19 12/12/21 Sudha Greene NP [address] [address] PCP - General 11/01/22 Noreen Flores, SEAN INSULATION FOREMAN [address] [place] [address] [place] [address] Assigned PCP 06/16/18 05/26/22 Kalyan Galvan Personal Advocate & Liaison (PAL) 08/08/19 04/26/21 [facility] [address] [place] [address] [place] [address] Pharmacist Pharmacist 10/14/19 12/01/20 Eduardo Sharma MD [address] [place] [address] [place] [address] Assigned Sleep Provider 04/02/2005/07 [place] [address] [facility] [address] [address] [place] [address] Assigned Musculoskeletal Provider 04/02/20 08/24/20 Marcelo Artis PA-C [address] [facility] [place] [address] [place], [place] [address] Assigned Musculoskeletal Provider 08/25/20 08/20/21 Rodrigo Man PA-C [address] [place] [address] [place] [address] Assigned Surgical Provider 08/25/20 11/27/20 Noreen Flores APRN INSULATION FOREMAN [address] [facility] [place] [address] Assigned PCP 08/05/22 03/16/23 Agatha Null DPM, Podiatry/Foot and Ankle Surgery [address] [place] [address] Assigned Musculoskeletal Provider 11/04/22 [facility] - [place] [place] [facility] [address] [facility] [place] [id number] Assigned PCP 07/05/23 documented as of this encounter
--- OUTSIDE RECORDS SUMMARY | 2023-11-02 07:09 | XMS_ITS | Encounter Summary ---
Author Organization [facility] Address [address] [place] [address] Care Team Providers Care Field Rep Name Role Phone Vadna Guerrero MD Primary Care Provider [phone] Vanda Guerrero MD Unavailable [phone] Jeana-Noreen Miles APRN ONLINE TRADER Unavailable [facility]-Noreen Miles APRN ONLINE TRADER Unavailable [facility]-JdNoreen castro MATRIX BATH ATTENDANT ONLINE TRADER Primary Car e Provider Kalyan Galvan Unavailable Unavailable Lashae Trevino [facility] Unavailable [phone] Eduardo Sharma MD Unavailable Rios Monteiro MD Unavailable [phone] Marcelo Artis PA-C Unavailable Rodrigo ManC Unavailable Jeana-Noreen Miles APRN ONLINE TRADER Unavailable Sudha Greene NP Primary Care Provider Agatha Null DPM, Podiatry /Foot and Ankle Surgery Unavailable [facility] [place] [place] [facility] Unavailable Reason for Visit * Reason Onset Date Comments Musculoskeletal Problem 06/13/2016 Travel a dvice Encounter Details Date Type Department Care Team (Latest Contact Info) Description 06/13/2016 MyC Medical Advice [facility] [address] [place] [address] Agatha Null DPNita, Podiatry/Foot and Ankle Surgery [address] [place] [address] Musculoskeletal Problem (Travel advice) Social History Tobacco [...] to provider for review. Iain Barone RN ENT INFORMATION COORDINATOR documented in this encounter Plan of [...] Total Score: 11 05/02/ 016 7:09 AM PATIENT INFORMATION COORDINATOR documented as of this encounter Care Teams Field Rep Relationship Specialty Start Date End Date Vanda Guerrero MD [address] [facility] [place] [address] PCP - General Internal Medicine 04/08/15 01/08/19 Vanda Guerrero MD [address] [facility] [place] [address] PCP - Assigned PCP 07/24/16 06/15/18 Noreen Flores APRN ONLINE TRADER [address] [place] [address] [place] [address] PCP - Assigned PCP 06/16/18 08/13/18 Noreen Flores APRN ONLINE TRADER [address] [place] [address] [place] [address] PCP - General Nurse Practitioner 01/09/19 12/12/21 Sudha Greene NP [address] [address] PCP - General 11/01/22 Noreen Flores APRN ONLINE TRADER [address] [place] [address] [place] [address] Assigned PCP 06/16/18 05/26/22 Kalyan Galvan Personal Advocate & Liaison (PAL) 08/08/19 04/26/21 Lashae Trevino, [facility] [address] [facility] [place] [address] Pharmacist Pharmacist 10/14/19 12/01/20 Eduardo Sharma MD [address] [facility] [address] [place] [address] Assigned Sleep Provider 04/02/2005/07 [place] [address] [facility] 300 [place] [address] Assigned Musculoskeletal Provider 04/02/20 08/24/20 Marcelo Artis, PA-C [address] [facility] 300 [place] [address] Assigned Musculoskeletal Provider 08/25/20 08/20/21 Rodrigo Man PA-C [address] [facility] [address] [place] [address] Assigned Surgical Provider 08/25/20 11/27/20 Noreen Flores APRN ONLINE TRADER [address] [facility] [place] [id number] Assigned PCP 08/05/22 03/16/23 Agatha Null DPM, Podiatry/Foot and Ankle Surgery [address] [facility] [address] [place] [address] Assigned Musculoskeletal Provider 11/04/22 [facility] [place] [address] [facility] [place] [id number] Assigned PCP 07/05/23 documented as of this encounter
--- OUTSIDE RECORDS SUMMARY | 2023-11-02 07:09 | XMS_ITS | Encounter Summary ---
Author Organization [place] Address [address] [place] [address] Care Team Providers Care Evaporator Operator Molasses Name Role Phone Vanda Guerrero MD Primary Care Provider [phone] Vanda Guerrero MD Unavailable [phone] Jeana-Noreen Miles APRN FIRE ENGINE OPERATOR Unavailable Jeana-Noreen Miles APRN FIRE ENGINE OPERATOR Unavailable Jeana-JdNoreen castro INVESTOR RELATIONS ASSOCIATE FIRE ENGINE OPERATOR Primary Car e Provider Kalyan Galvan Unavailable Unavailable Lashae Trevino [facility] Unavailable [phone] Eduardo Sharma MD Unavailable Rios Monteiro MD Unavailable Marcelo Artis PA-C Unavailable Rodrigo ManC Unavailable Jeana-Noreen Miles APRN FIRE ENGINE OPERATOR Unavailable Sudha Greene NP Primary Care Provider Agatha Null DPM, Podiatry /Foot and Ankle Surgery Unavailable [facility] [place] [place] [facility] Unavailable Encounter Details Date Type Department Care Team (Late st Contact Info) Description 03/21/2017 [facility] Lucy Moya [facility] [place] [address] [facility] [address] [place] [address] Dusty Oneil [facility] Social History Tobacco Use Types Packs/Day Years [...] documented as of this encounter Care Teams Evaporator Operator Molasses Relationship Specialty Start Date End Date Vanda Guerrero MD [address] [place] [address] [place] [address] PCP - General Internal Medicine 04/08/15 01/08/19 Vanda Guerrero MD [address] [place] [address] [place] [address] PCP - Assigned PCP 07/24/16 06/15/18 Noreen Flores APRN FIRE ENGINE OPERATOR [address] [place] [address] [place] [address] PCP - Assigned PCP 06/16/18 08/13/18 Noreen Flores APRN FIRE ENGINE OPERATOR [address] [place] [address] [place] [address] PCP - General Nurse Practitioner 01/09/19 12/12/21 Sudha Greene NP [address] [address] PCP - General 11/01/22 Noreen Flores APRN FIRE ENGINE OPERATOR [address] [facility] [place] [address] Assigned PCP 06/16/18 05/26/22 Kalyan Galvan Personal Advocate & Liaison (PAL) 08/08/19 04/26/21 Lashae Trevino [facility] [address] [facility] [address] [place] [id number] Pharmacist Pharmacist 10/14/19 12/01/20 Eduardo Sharma MD [address] [place] [address] [place] [address] Assigned Sleep Provider 04/02/2005/07 [place] [address] [facility] [place] [address] [place] [address] Assigned Musculoskeletal Provider 04/02/20 08/24/20 Marcelo Artis PA-C [address] [place] [address] [place] [address] Assigned Musculoskeletal Provider 08/25/20 08/20/21 Rodrigo Man PA-C [address] [place] [address] [place] [address] Assigned Surgical Provider 08/25/20 11/27/20 Noreen Flores APRN FIRE ENGINE OPERATOR [address] [facility] [place] [address] Assigned PCP 08/05/22 03/16/23 Agatha Null DPM, Podiatry/Foot and Ankle Surgery [address] [place] [address] Assigned Musculoskeletal Provider 11/04/22 [facility] - [place] [facility] [address] [facility] [place] [address] Assigned PCP 07/05/23 documented as of this encounter
--- OUTSIDE RECORDS SUMMARY | 2023-11-02 07:09 | XMS_ITS | Encounter Summary ---
Author Organization [facility] Address [address] [place] [address] Care Team Providers Care Shearing Shed Hand Name Role Phone Vanda Guerrero MD Primary Care Provider [phone] Vanda Guerrero MD Unavailable [phone] Jeana-Noreen Miles APRN FLAVORER Unavailable Jeana-Noreen Miles APRN FLAVORER Unavailable Jeana-Noreen Miles MFT FLAVORER Primary Car e Provider Kalyan Galvan Unavailable Unavailable Lashae Trevino [facility] Unavailable [phone] Eduardo Sharma MD Unavailable Rios Monteiro MD Unavailable [phone] Marcelo Artis PA-C Unavailable [phone] Rodrigo ManC Unavailable Jeana-Noreen Miles APRN FLAVORER Unavailable Sudha Greene NP Primary Care Provider Agatha Null DPM, Podiatry /Foot and Ankle Surgery Unavailable [facility] [place] [place] [facility] Unavailable Encounter Details Date Type Department Care Team (Late st Contact Info) Description 02/17/2018 [facility] Lucy Moya [facility] [address] [place] [address] Liya Gonzalez RN Social History Tobacco Use [...] Time PHQ-9 Depression Total Score: 8 02/19/20 7:04 AM CDT documented as of this encounter Care Teams Shearing Shed Hand Relationship Specialty Start Date End Date Vanda Guerrero MD [address] [place] [address] [place] [address] PCP - General Internal Medicine 04/08/15 01/08/19 Vanda Guerrero MD [address] [place] [address] [place] [address] PCP - Assigned PCP 07/24/16 06/15/18 Noreen Flores APRN FLAVORER [address] [place] [address] [place] [address] PCP - Assigned PCP 06/16/18 08/13/18 Noreen Flores APRN FLAVORER [address] [place] [address] [place] [address] PCP - General Nurse Practitioner 01/09/19 12/12/21 Sudha Greene NP [address] [address] PCP - General 11/01/22 Noreen Flores APRN FLAVORER [address] [facility] [place] [address] Assigned PCP 06/16/18 05/26/22 Kalyan Galvan Personal Advocate & Liaison (PAL) 08/08/19 04/26/21 Lashae Trevino [facility] [address] [place] [address] [place] [address] Pharmacist Pharmacist 10/14/19 12/01/20 Eduardo Sharma MD [address] [place] [address] [place] [address] Assigned Sleep Provider 04/02/2005/07 [place] [address] [facility] [place] [address] [place] [address] Assigned Musculoskeletal Provider 04/02/20 08/24/20 Marcelo Artis PA-C [address] [place] [address] [place] [address] [place] [address] Assigned Musculoskeletal Provider 08/25/20 08/20/21 Rodrigo Man PA-C [address] [place] [address] [place] [address] Assigned Surgical Provider 08/25/20 11/27/20 Noreen Flores APRN FLAVORER [address] [facility] [place] [address] Assigned PCP 08/05/22 03/16/23 Agatha Null DPM, Podiatry/Foot and Ankle Surgery [address] [place] [address] Assigned Musculoskeletal Provider 11/04/22 [facility] - [place] [place] [facility] [address] [facility] [place] [address] Assigned PCP 07/05/23 documented as of this encounter
--- OUTSIDE RECORDS SUMMARY | 2023-11-02 07:09 | XMS_ITS | Encounter Summary ---
Author Organization [place] Address [address] [place] [address] Care Team Providers Care Laser Beam Machine Operator Name Role Phone Selma Good APRN INCLINOMETER TESTER Primary Care Pro vider Vanda Guerrero MD Primary Care Provider [phone] Vanda Guerrero MD Unavailable [phone] Jeana-JdNoreen castro APRN, CNP Unavailable Jeana-JdNoreen castro APRN, CNP Unavailable JeanaNoreen Garcia APRN INCLINOMETER TESTER Primary Car e Provider Kalyan Galvan Unavailable Unavailable Lashae Trevino [facility] Unavailable [phone] Eduardo Sharma MD Unavailable Rios Monteiro MD Unavailable [phone] Marcelo Artis PA-C Unavailable [phone] Rodrigo Man PA-C Unavailable [phone] Jeana-Noreen Miles APRN INCLINOMETER TESTER Unavailable Sudha Greene NP Primary Care Provider Agatha NullM, Podiatry /Foot and Ankle Surgery Unavailable [facility] [place] [facility] Unavailable Encounter Details Date Type Department Care Team (Late st Contact Info) Description 08/17/[address] [facility] [address] [place] [address] Day Greene APRN INCLINOMETER TESTER [address] [place] [address] [address] [place] [address] Social History Tobacco Use Types Packs/Day Years [...] of this encounter Care Teams Laser Beam Machine Operator Relationship Specialty Start Date End Date Selma Good APRN INCLINOMETER TESTER [address] [place] [address] [place] [address] PCP - General 04/09/08 04/07/15 Vanda Guerrero MD [address] [place] [address] [place] [address] PCP - General Internal Medicine 04/08/15 01/08/19 Vanda Guerrero MD [address] [place] [address] [place] [address] PCP - Assigned PCP 07/24/16 06/15/18 Noreen Flores APRN INCLINOMETER TESTER [address] [place] [address] [place] [address] PCP - Assigned PCP 06/16/18 08/13/18 Noreen Flores APRN INCLINOMETER TESTER [address] [place] [address] [place] [address] PCP - General Nurse Practitioner 01/09/19 12/12/21 Sudha Greene, [place] [address] [address] PCP - General 11/01/22 Noreen Flores APRN INCLINOMETER TESTER [address] [place] [address] [place] [address] Assigned PCP 06/16/18 05/26/22 Kaylan Galvan Personal Advocate & Liaison (PAL) 08/08/19 04/26/21 Lashae Trevino [facility] [address] [place] [address] [place] [phone] Pharmacist Pharmacist 10/14/19 12/01/20 Eduardo Sharma MD [address] [place] [address] Assigned Sleep Provider 04/02/2005/07 [place] [address] [address] [facility] [address] [place] [address] Assigned Musculoskeletal Provider 04/02/20 08/24/20 Marcelo Artis PARejiC [address] [facility] [address] [place] [address] Assigned Musculoskeletal Provider 08/25/20 08/20/21 Rodrigo Man PA-C [address] [place] [address] [place] [address] Assigned Surgical Provider 08/25/20 11/27/20 Noreen Flores APRN INCLINOMETER TESTER [address] [facility] [place] [address] Assigned PCP 08/05/22 03/16/23 Agatha Null DPM, Podiatry/Foot and Ankle Surgery [address] [place] [address] [place] [address] Assigned Musculoskeletal Provider 11/04/22 [facility] - [place] [facility] [address] [facility] [place] [address] Assigned PCP 07/05/23 documented as of this encounter
--- OUTSIDE RECORDS SUMMARY | 2023-11-02 07:09 | XMS_ITS | Encounter Summary ---
Author Organization [facility] Address [address] [place] [address] Care Team Providers Care Drafter Chief Design Name Role Phone Vanda Guerrero MD Primary Care Provider [phone] Vanda Guerrero MD Unavailable [phone] Jeana-Noreen Miles APRN TAWER Unavailable [facility]en Miles APRN TAWER Unavailable [facility]-JdNoreen castro BUTTON SPINDLER TAWER Primary Car e Provider Kalyan Galvan Unavailable Unavailable Lashae Trevino [facility] Unavailable Eduardo Sharma MD Unavailable Rios Monteiro MD Unavailable [phone] Marcelo Artis PA-C Unavailable Rodrigo Man PA-C Unavailable Jeana-Noreen Miles APRN TAWER Unavailable Sudha Greene NP Primary Care Provider Agatha Null DPM, Podiatry /Foot and Ankle Surgery Unavailable [facility] [place] [facility] Unavailable Reason for Visit * Reason Onset Date Comments Patient/info Update 07/18/2017 post C7-T1 i nterlaminar epidural steroid injection Encounter Details Date Type Department Care Team (Late st Contact Info) Description 07/18/2017 Telephone [employer] [facility] [place] [address] [facility] [address] [place], [place] [address] Jim Wang MD [address] [place] [address] Patient/info Update (post C7-T1 interlaminar epidural steroid [...] pt should call the nurse line at [phone]. NOSTICS TECH documented in this encounter Plan of Treatment Not on file documented as of this encounter Visit Diagnoses Not on filedocumented in this encounter Additional Health Concerns Infection Onset Date Last Indicated Resolved Time Rule Out COVID-19 08/25/2020 08/25/2020 08/26/2020 3:23 PM CDT Rule Out COVID-19 11/26/2022 11/26/2022 11/27/2022 3:38 PM CDT Assessment Noted Time PHQ-9 Depression Total Score: 12 018 1:02 PM DIAGNOSTICS TECH documented as of this encounter Care Teams Drafter Chief Design Relationship Specialty Start Date End Date Vanda Guerrero MD [address] [place] [address] [place] [address] PCP - General Internal Medicine 04/08/15 01/08/19 Vanda Guerrero MD [address] [place] [address] [place] [address] PCP - Assigned PCP 07/24/16 06/15/18 Noreen Flores APRN TAWER [address] [place] [address] [place] [address] PCP - Assigned PCP 06/16/18 08/13/18 Noreen Flores APRN TAWER [address] [place] [address] [place] [address] PCP - General Nurse Practitioner 01/09/19 12/12/21 Sudha Greene NP [address] [address] PCP - General 11/01/22 Noreen Flores APRN TAWER [address] [place] [address] [place] [address] Assigned PCP 06/16/18 05/26/22 Kalyan Galvan Personal Advocate & Liaison (PAL) 08/08/19 04/26/21 Lashae Trevino, [facility] [address] [place] [address] Pharmacist Pharmacist 10/14/19 12/01/20 Eduardo Sharma MD [address] [place] [address] [place] [address] Assigned Sleep Provider 04/02/2005/07 [place] [id number] [place] [address] [address] [place] [address] Assigned Musculoskeletal Provider 04/02/20 08/24/20 Marcelo Artis PA-C [id number] [place] [address] 300 [place] [address] Assigned Musculoskeletal Provider 08/25/20 08/20/21 Rodrigo Man PA-C [address] [place] [address] [place] [address] Assigned Surgical Provider 08/25/20 11/27/20 Noreen Flores APRN TAWER [address] [place] [address] [place] [address] Assigned PCP 08/05/22 03/16/23 Agatha Null DPM, Podiatry/Foot and Ankle Surgery [address] [place] [address] [facility] [address] [place] [address] Assigned Musculoskeletal Provider 11/04/22 [facility] 3[address] [facility] [place] [id number] Assigned PCP 07/05/23 documented as of this encounter
--- OUTSIDE RECORDS SUMMARY | 2023-11-02 07:09 | XMS_ITS | Encounter Summary ---
Author Organization [place] Address [address] [place] [address] Care Team Providers Care Market Asset Protection Manager Name Role Phone Vanda Guerrero MD Primary Care Provider [phone] Vanda Guerrero MD Unavailable [phone] Jeana-Noreen Miles APRN COMPLIANCE EXAMINER Unavailable Jeana-Noreen Miles APRN COMPLIANCE EXAMINER Unavailable Jeana-JdNoreen castro SALESPERSON TERRAZZO TILES COMPLIANCE EXAMINER Primary Car e Provider Kalyan Galvan Unavailable Unavailable Lashae Trevino [facility] Unavailable Eduardo Sharma MD Unavailable Rios Monteiro MD Unavailable [phone] Marcelo Artis PA-C Unavailable [phone] Rodrigo ManC Unavailable Jeana-Noreen Miles APRN COMPLIANCE EXAMINER Unavailable Sudha Greene NP Primary Care Provider [phone] Agatha Null DPM, Podiatry /Foot and Ankle Surgery Unavailable [facility] [place] [facility] Unavailable Encounter Details Date Type Department Care Team (Late st Contact Info) Description 12/05/2016 [facility] [address] [place] [address] Heath Sandy Jerez, [facility] 14[address] [facility] [place] [address] Social History Tobacco Use Types Packs/Day Years [...] as of this encounter Care Teams Market Asset Protection Manager Relationship Specialty Start Date End Date Vanda Guerrero MD [address] [place] [address] [place] [address] PCP - General Internal Medicine 04/08/15 01/08/19 Vanda Guerrero MD [address] [place] [address] [place] [address] PCP - Assigned PCP 07/24/16 06/15/18 Noreen Flores APRN COMPLIANCE EXAMINER [address] [place] [address] [place] [address] PCP - Assigned PCP 06/16/18 08/13/18 Noreen Flores APRN COMPLIANCE EXAMINER [address] [place] [address] [place] [address] PCP - General Nurse Practitioner 01/09/19 12/12/21 Sudha Greene NP [address] [address] PCP - General 11/01/22 Noreen Flores APRN COMPLIANCE EXAMINER [address] [facility] [place] [address] Assigned PCP 06/16/18 05/26/22 Kalyan Galvan Personal Advocate & Liaison (PAL) 08/08/19 04/26/21 Lashae Trevino, [facility] 14[address] [facility] [place] [address] Pharmacist Pharmacist 10/14/19 12/01/20 Eduardo Sharma MD [address] [place] [address] [place] [id number] Assigned Sleep Provider 04/02/2005/07 [place] [address] [place] [address] [place] [address] Assigned Musculoskeletal Provider 04/02/20 08/24/20 Marcelo Artis PA-C [address] [place] [address] [place] [address] Assigned Musculoskeletal Provider 08/25/20 08/20/21 Rodrigo Man PA-C [address] [place] [address] [place] [address] Assigned Surgical Provider 08/25/20 11/27/20 Noreen Flores APRN COMPLIANCE EXAMINER [address] [facility] [place] [address] Assigned PCP 08/05/22 03/16/23 Agatha Null DPM, Podiatry/Foot and Ankle Surgery [address] [place] [address] Assigned Musculoskeletal Provider 11/04/22 Clinic - [place] [facility] 3[address] [facility] [place] [id number] Assigned PCP 07/05/23 documented as of this encounter
--- OUTSIDE RECORDS SUMMARY | 2023-11-02 07:09 | XMS_ITS | Encounter Summary ---
Author Organization [facility] Address [address] [place] [address] Care Team Providers Care Water Trainer Name Role Phone Vanda Guerrero MD Primary Care Provider [phone] Vanda Guerrero MD Unavailable [phone] Jeana-JdNoreen castro APRN GROUP CARE WORKER Unavailable [facility] Miles APRN GROUP CARE WORKER Unavailable [facility]Jd[facility]en castro POULTRY PACKER GROUP CARE WORKER Primary Car e Provider Kalyan Galvan Unavailable Unavailable Lashae Trevino [facility] Unavailable [phone] Eduardo Sharma MD Unavailable Rios Monteiro MD Unavailable [phone] Marcelo Artis PA-C Unavailable Rodrigo ManC Unavailable Jeana-Noreen Miles APRN GROUP CARE WORKER Unavailable Sudha Greene NP Primary Care Provider Agatha Null DPM, Podiatry /Foot and Ankle Surgery Unavailable [facility] Unavailable Reason for Visit * Reason Comments Medication Refill ONETOUCH ULTRA test strip; simvastatin (ZOCOR) 20 MG tablet Encounter Details Date Type Department Care Team (Late st Contact Info) Description 12/21/2017 Refill [facility] [address] [place] [address] Vanda Guerrero MD [address] [facility] [place] [address] Medication Refill (ONETOUCH ULTRA test strip; simvastatin [...] 12/25/2017 10:56 AM CDT Prescription approved per [facility] Refill Protocol. Day Greene RN, BSN * [...] Depression Total Score: 12 018 1:02 PM SENIOR ANDROID SOFTWARE ENGINEER documented as of this encounter Care Teams Water Trainer Relationship Specialty Start Date End Date Vanda Guerrero MD [address] [facility] [place] [address] PCP - General Internal Medicine 04/08/15 01/08/19 Vanda Guerrero MD [address] [facility] [place] [address] PCP - Assigned PCP 07/24/16 06/15/18 Noreen Flores APRN GROUP CARE WORKER [address] [place] [address] [place] [address] PCP - Assigned PCP 06/16/18 08/13/18 Noreen Flores APRN GROUP CARE WORKER [address] [place] [address] [place] [address] PCP - General Nurse Practitioner 01/09/19 12/12/21 Sudha Greene, MA[place] [address] [address] PCP - General 11/01/22 Noreen Flores APRN GROUP CARE WORKER [address] [place] [address] [place] [address] Assigned PCP 06/16/18 05/26/22 Kalyan Galvan Personal Advocate & Liaison (PAL) 08/08/19 04/26/21 [facility] [address] [facility] [place] [address] Pharmacist Pharmacist 10/14/19 12/01/20 Eduardo Sharma MD [address] [facility] 103 [place] 173125 Assigned Sleep Provider 04/02/2005/07 [place] [address] [facility] [address] [place], [place] [address] Assigned Musculoskeletal Provider 04/02/20 08/24/20 Marcelo Artis PA-C [address] [address] Assigned Musculoskeletal Provider 08/25/20 08/20/21 Rodrigo Man PA-C 6545 [facility] 450 [place] [address] Assigned Surgical Provider 08/25/20 11/27/20 Noreen Flores APRN CNP [address] [place] [address] [place] [address] Assigned PCP 08/05/22 03/16/23 Agatha Null DPM, Podiatry/Foot and Ankle Surgery [address] [facility] 300 [place] [address] Assigned Musculoskeletal Provider 11/04/22 [facility] [address] [place] [address] [place] [address] Assigned PCP 07/05/23 documented as of this encounter
--- OUTSIDE RECORDS SUMMARY | 2023-11-02 07:09 | XMS_ITS | Encounter Summary ---
Author Organization [place] Address [address] [place] [address] Care Team Providers Care Scraper Burrer Name Role Phone Vanda Guerrero MD Primary Care Provider [phone] Vanda Guerrero MD Unavailable [phone] Jeana-JdNoreen castro APRN SLATE PICKER Unavailable [facility] Miles APRN SLATE PICKER Unavailable [facility]Jd[facility] castro VERIFY REP SLATE PICKER Primary Car e Provider Kalyan Galvan Unavailable Unavailable Lashae Trevino [facility] Unavailable Eduardo Sharma MD Unavailable Rios Monteiro MD Unavailable [phone] Marcelo ArtisC Unavailable [phone] Rodrigo Man-C Unavailable [phone] Jeana-Noreen Miles APRN SLATE PICKER Unavailable Sudha Greene NP Primary Care Provider Agatha Null DPM, Podiatry /Foot and Ankle Surgery Unavailable [facility] Unavailable Reason for Referral * Consultation - Closed Specialty Diagnoses / Procedures Referred By Rylie t Referred To Contact Diagnoses Cervicalgia History of lumbar fusion History of fusion of cervical spine Vanda Guerrero MD [address] [facility] [place] [address] [facility] [place] [address] [facility] [address] [place] [address] Referral ID Status Reason Start Date Expiration Date Visits Re quested Visits Authorized [id number] Closed 04/27/2015 04/26/2016 1 1 Comments [facility] is referring you to the Orthopedic Deicer Kit Assembler Services at [facility]. The Deicer Kit Assembler Nuisance Wildlife Control Operator will assist you in the coordination of your Orthopedic and Musculoskeletal Care as prescribed by your physician. The Deicer Kit Assembler Nuisance Wildlife Control Operator will call you within 24 hours to help schedule your appointment, or you may contact the Deicer Kit Assembler Nuisance Wildlife Control Operator at: [facility] ~ [facility] ~ [facility] ~ Type of Referral : Spine: Cervical / Thoracic: Medical Electric Motor Assembler And Tester Timeframe requested: Routine Coverage of these services is subject to the terms and limitations of your health insurance plan. Please call member services at your health plan with any benefit or coverage questions. If X-rays, CT or MRI's have been performed, please contact the facility where they were done to arrange for warehouse picker, prior to your scheduled appointment. Please bring this referral request to your appointment and present it to your specialist. T DUMPER Reason for Visit * Reason Onset Date Comments Leg Pain 04/27/2015 Encounter Details Date Type Department Care Team (Late st Contact Info) Description 04/27/2015 [facility] [facility] [place] [address] Vanda Guerrero MD [address] [facility] [place] [address] Leg Pain Social History Tobacco Use Types [...] Kallie Mishra RN - 04/27/2015 5:20 PM FRUIT DUMPER Entered referral, sent ZhenXin message to update the patient. T DUMPER * Telephone Encounter - Vanda Gurerero MD - 04/27/2015 3:16 PM FRUIT DUMPER Recommend FSOC evaluation in the next 1-2 weeks. T DUMPER * Telephone Encounter - Kallie Mishra RN - 04/27/2015 3:14 PM FRUIT DUMPER Would you recommend re-evaluation due to new symptoms? T DUMPER documented in this encounter Plan of Treatment [...] documented as of this encounter Care Teams Scraper Burrer Relationship Specialty Start Date End Date Vanda Guerrero MD [address] [facility] [place] [address] PCP - General Internal Medicine 04/08/15 01/08/19 Vanda Guerrero MD [address] [facility] [place] [address] PCP - Assigned PCP 07/24/16 06/15/18 Noreen Flores APRN SLATE PICKER [address] [place] [address] [place] [address] PCP - Assigned PCP 06/16/18 08/13/18 Noreen Flores APRN SLATE PICKER [address] [place] [address] [place] [address] PCP - General Nurse Practitioner 01/09/19 12/12/21 Sudha Greene NP [address] [address] PCP - General 11/01/22 Noreen Flores APRN SLATE PICKER [address] [place] [address] [place] [address] Assigned PCP 06/16/18 05/26/22 Kalyan Galvan Personal Advocate & Liaison (PAL) 08/08/19 04/26/21 Lashae Trevino, [facility] [address] [facility] [place] [address] Pharmacist Pharmacist 10/14/19 12/01/20 Eduardo Sharma MD [address] [facility] 103 [place] [address] Assigned Sleep Provider 04/02/2005/07 [place] [address] [facility] 300 [place] [address] Assigned Musculoskeletal Provider 04/02/20 08/24/20 Marcelo Artis PA-C [address] [facility] [address] [place] [address] Assigned Musculoskeletal Provider 08/25/20 08/20/21 Rodrigo Man PA-C [address] [facility] [address] [place] [address] Assigned Surgical Provider 08/25/20 11/27/20 Noreen Flores APRN SLATE PICKER [address] [place] [address] [place] [address] Assigned PCP 08/05/22 03/16/23 Agatha Null DPM, Podiatry/Foot and Ankle Surgery [address] [facility] [address] [place] [address] Assigned Musculoskeletal Provider 11/04/22 [facility] 3[address] [facility] [place]DOÑE[place] [id number] Assigned PCP 07/05/23 documented as of this encounter
--- OUTSIDE RECORDS SUMMARY | 2023-11-02 07:09 | XMS_ITS | Encounter Summary ---
Author Organization [place] Address [address] [place] [address] Care Team Providers Care Residential Sales Executive Name Role Phone Vanda Guerrero MD Primary Care Provider [phone] Vanda Guerrero MD Unavailable [phone] Jeana-Noreen Miles APRN SENIOR CLINICAL DATA COORDINATOR Unavailable Jeana-Noreen Miles APRN SENIOR CLINICAL DATA COORDINATOR Unavailable Jeana-JdNoreen castro HOG DROPPER SENIOR CLINICAL DATA COORDINATOR Primary Car e Provider Kalyan Galvan Unavailable Unavailable Lashae Trevino [facility] Unavailable Eduardo Sharma MD Unavailable Rios Monteiro MD Unavailable Marcelo Artis PA-C Unavailable Rodrigo Man PA-C Unavailable Jeana-Noreen Miles APRN SENIOR CLINICAL DATA COORDINATOR Unavailable Sudha Greene NP Primary Care Provider Agatha Null DPM, Podiatry /Foot and Ankle Surgery Unavailable [facility] Unavailable Encounter Details Date Type Department Care Team (Late st Contact Info) Description 02/11/2016 [place] [phone] Vanda Guerrero MD [address] [place] [address] [place] [address] Social History Tobacco Use Types Packs/Day Years [...] as of this encounter Care Teams Residential Sales Executive Relationship Specialty Start Date End Date Vanda Guerrero MD [address] [place] [address] [place] [address] PCP - General Internal Medicine 04/08/15 01/08/19 Vanda Guerrero MD [address] [place] [address] [place] [address] PCP - Assigned PCP 07/24/16 06/15/18 Noreen Flores APRN SENIOR CLINICAL DATA COORDINATOR [address] [place] [address] [place] [address] PCP - Assigned PCP 06/16/18 08/13/18 Noreen Flores APRN SENIOR CLINICAL DATA COORDINATOR [address] [place] [address] [place] [address] PCP - General Nurse Practitioner 01/09/19 12/12/21 Sudha Greene NP [facility] [address] [place] [address] PCP - General 11/01/22 Noreen Flores APRN SENIOR CLINICAL DATA COORDINATOR [address] [place] [address] [place] [address] Assigned PCP 06/16/18 05/26/22 Kalyan Galvan Personal Advocate & Liaison (PAL) 08/08/19 04/26/21 Lashae Trevino, [facility] [address] [place] [address] [place] [address] Pharmacist Pharmacist 10/14/19 12/01/20 Eduardo Sharma MD [address] [place] [address] [place] [address]66[address] Assigned Sleep Provider 04/02/2005/07 [place] [id number] [place] [address] [place] [address] Assigned Musculoskeletal Provider 04/02/20 08/24/20 Marcelo Artis PA-C [email or web address] [place] [address] [place] [address] Assigned Musculoskeletal Provider 08/25/20 08/20/21 Rodrigo Man PA-C [address] [place] [address] [place] [address] Assigned Surgical Provider 08/25/20 11/27/20 Noreen Flores APRN SENIOR CLINICAL DATA COORDINATOR 3305 [facility] [place] [address] Assigned PCP 08/05/22 03/16/23 Agatha Null DPM, Podiatry/Foot and Ankle Surgery [address] [place] [address] Assigned Musculoskeletal Provider 11/04/22 [facility] - [place] [place] [facility] 3[address] [facility] [place] [id number] Assigned PCP 07/05/23 documented as of this encounter
--- OUTSIDE RECORDS SUMMARY | 2023-11-02 07:09 | XMS_ITS | Encounter Summary ---
Author Organization [facility] Address [address] [place] [address] Care Team Providers Care Assistant Prosecuting Attorney Name Role Phone Selma Good APRN MULTIFOCAL BUTTON GENERATOR Primary Care Pro vider Vanda Guerrero MD Primary Care Provider [phone] Vanda Guerrero MD Unavailable [phone] Jeana-JdNoreen castro APRN, CNP Unavailable Jeana-JdNoreen castro APRN, CNP Unavailable JeanaRejiJdNoreen castro APRN, CNP Primary Car e Provider Kalyan Galvan Unavailable Unavailable Lashae Trevino [facility] Unavailable [phone] Eduardo Sharma MD Unavailable Rios Monteiro MD Unavailable [phone] Marcelo Artis PA-C Unavailable [phone] Rodrigo ManC Unavailable [phone] Jeana-Noreen Miles APRN MULTIFOCAL BUTTON GENERATOR Unavailable Sudha Greene NP Primary Care Provider Agatha NullM, Podiatry /Foot and Ankle Surgery Unavailable [facility] Unavailable Reason for Visit * Reason Onset Date Comments Medication Question 10/06/2014 lisinopril Refill Request 10/06/2014 OT lancets and s trips Encounter Details Date Type Department Care Team (Late st Contact Info) Description 10/06/2014 MyC Medical Advice [facility] [address] [facility] [place] [phone] Selma Good, [facility] 3[address] [facility] [place] [address] Medication Question (lisinopril); Refill R... Social History [...] PM CDT Appointment today with Kenyon GUEVARA, GRAIN UNLOADER: 5. Hypertension goal BP (blood pressure) < [...] as of this encounter Care Teams Assistant Prosecuting Attorney Relationship Specialty Start Date End Date Selma Good APRN MULTIFOCAL BUTTON GENERATOR [address] [place] [address] [place] [address] PCP - General 04/09/08 04/07/15 Vanda Guerrero MD [address] [place] [address] [place] [address] PCP - General Internal Medicine 04/08/15 01/08/19 Vanda Guerrero MD [address] [place] [address] [place] [address] PCP - Assigned PCP 07/24/16 06/15/18 Noreen Flores APRN MULTIFOCAL BUTTON GENERATOR [address] [place] [address] [place] [address] PCP - Assigned PCP 06/16/18 08/13/18 Noreen Flores APRN MULTIFOCAL BUTTON GENERATOR [address] [place] [address] [place] [address] PCP - General Nurse Practitioner 01/09/19 12/12/21 Sudha Greene NP [address] [address] PCP - General 11/01/22 Noreen Flores APRN MULTIFOCAL BUTTON GENERATOR [address] [facility] [place] [address] Assigned PCP 06/16/18 05/26/22 Kalyan Galvan Personal Advocate & Liaison (PAL) 08/08/19 04/26/21 [facility] [address] [place] [address] [place] [address] Pharmacist Pharmacist 10/14/19 12/01/20 Eduardo Sharma MD [address] [place] [address] [place] [address] Assigned Sleep Provider 04/02/2005/07 [place] [address] [place] [address] [place] [address] Assigned Musculoskeletal Provider 04/02/20 08/24/20 Marcelo Artis PA-C [address] [facility] [address] [address] [place] [address] [place] [address] Assigned Musculoskeletal Provider 08/25/20 08/20/21 Rodrigo Man PA-C [address] [place] [address] [place] [address] Assigned Surgical Provider 08/25/20 11/27/20 Noreen Flores APRN MULTIFOCAL BUTTON GENERATOR [address] [facility] [place] [address] Assigned PCP 08/05/22 03/16/23 Agatha Null DPM, Podiatry/Foot and Ankle Surgery [address] [place] [address] Assigned Musculoskeletal Provider 11/04/22 [facility] - [facility] [place] [address] [place] [address] [place] [address] Assigned PCP 07/05/23 documented as of this encounter
--- OUTSIDE RECORDS SUMMARY | 2023-11-02 07:09 | XMS_ITS | Encounter Summary ---
Author Organization [place] Address [address] [place] [address] Care Team Providers Care Hide Tanner Name Role Phone Vanda Guerrero MD Primary Care Provider [phone] Vanda Guerrero MD Unavailable [phone] Jeana-Noreen Miles APRN LIVESTOCK RANCHER Unavailable [facility] APRN LIVESTOCK RANCHER Unavailable [facility]-JdNoreen castro SECURITY SYSTEMS MANAGER LIVESTOCK RANCHER Primary Car e Provider Kalyan Galvan Unavailable Unavailable Lashae Trevino [facility] Unavailable Eduardo Sharma MD Unavailable Rios Monteiro MD Unavailable [phone] Marcelo Artis PA-C Unavailable Rodrigo Man PA-C Unavailable Jeana-Noreen Miles APRN LIVESTOCK RANCHER Unavailable Sudha Greene NP Primary Care Provider Agatha Null DPM, Podiatry /Foot and Ankle Surgery Unavailable [facility] [place] [facility] Unavailable Reason for Visit * Reason Comments Medication Refill simvastatin (ZOCOR) 20 MG tablet Encounter Details Date Type Department Care Team (Late st Contact Info) Description 02/15/2017 Refill [facility] [address] [facility] [address] [place] [address] Vanda Guerrero MD [address] [facility] [place] [address] Medication Refill (simvastatin (ZOCOR) 20 MG tablet) [...] Last Office Visit with [facility], [facility] or [facility] prescribing provider: 09/25/2016 Lab Results Component [...] <200 mg/dL 02/17/2017 2:[address] [facility] Triglycerides 121 <150 mg/dL 02/17/2017 2:[address] [facility] Comment:Fasting specimen HDL Cholesterol 43(L) >49 mg/dL 7 2:[address] [facility] LDL Cholesterol Calculated 111(H) <100 mg/dL 02/17/2017 2:[address] [facility] Comment: Above desirable: ??100-129 mg/dl Borderline High: ??130-159 mg/dL High: ? 160-189 mg/dL Very high: ? >189 mg/dl Non HDL Cholesterol 135(H) <130 mg/dL 02/17/2017 2:[address] [facility] Comment: Above Desirable: ??130-159 mg/dl Borderline high: ??160-189 mg/dl High: ? 190-219 mg/dl Very high: ? >219 mg/dl Blood specimen (specimen) 02/17/2017 9:13 AM CDT 02/17/2017 9:18 AM CDT Vanda Guerrero MD LAB - BLOOD ORDER ILDEFONSO [facility] [address] [place] [address] documented in this encounter Visit Diagnoses Diagnosis [...] documented as of this encounter Care Teams Hide Tanner Relationship Specialty Start Date End Date Vanda Guerrero MD [address] [place] [address] [place] [address] PCP - General Internal Medicine 04/08/15 01/08/19 Vanda Guerrero MD [address] [place] [address] [place] [address] PCP - Assigned PCP 07/24/16 06/15/18 Noreen Flores APRN LIVESTOCK RANCHER [address] [place] [address] [place] [address] PCP - Assigned PCP 06/16/18 08/13/18 Noreen Flores APRN LIVESTOCK RANCHER [address] [place] [address] [place] [address] PCP - General Nurse Practitioner 01/09/19 12/12/21 Sudha Greene NP [address] [address] PCP - General 11/01/22 Noreen Flores APRN LIVESTOCK RANCHER [address] [place] [address] [place] [address] Assigned PCP 06/16/18 05/26/22 Kalyan Galvan Personal Advocate & Liaison (PAL) 08/08/19 04/26/21 [facility] [place] [address] Pharmacist Pharmacist 10/14/19 12/01/20 Eduardo Sharma MD [address] [place] [address] [place] [address] Assigned Sleep Provider 04/02/2005/07 [place] [id number] [place] [address] [address] [place] 247177 Assigned Musculoskeletal Provider 04/02/20 08/24/20 Marcelo Artis PA-C [address] [place] [address] [address] [place] [address] Assigned Musculoskeletal Provider 08/25/20 08/20/21 Rodrigo Man PA-C [address] [place] [address] [place] [address]6795 Assigned Surgical Provider 08/25/20 11/27/20 Noreen Flores APRN LIVESTOCK RANCHER [address] [place] [address] [place] [address] Assigned PCP 08/05/22 03/16/23 Agatha Null DPM, Podiatry/Foot and Ankle Surgery [address] [place] [address] [place] [address] Assigned Musculoskeletal Provider 11/04/22 [facility] [place] [facility] [address] [facility] [place] [address] Assigned PCP 07/05/23 documented as of this encounter
--- OUTSIDE RECORDS SUMMARY | 2023-11-02 07:09 | XMS_ITS | Encounter Summary ---
Author Organization [place] Address [address] [place] [address] Care Team Providers Care Compounder Helper Name Role Phone Vanda Guerrero MD Primary Care Provider [phone] Vanda Guerrero MD Unavailable [phone] Jeana-Noreen Miles APRN HEPATOLOGY PHYSICIAN Unavailable [facility]-Noreen Miles APRN HEPATOLOGY PHYSICIAN Unavailable [facility]-JdNoreen castro MANAGER SEMICONDUCTOR HEPATOLOGY PHYSICIAN Primary Car e Provider Kalyan Galvan Unavailable Unavailable Lashae Trevino [facility] Unavailable [phone] Eduardo Sharma MD Unavailable Rios Monteiro MD Unavailable [phone] Marcelo Artis PA-C Unavailable Rodrigo Man PA-C Unavailable Jeana-Noreen Miles APRN HEPATOLOGY PHYSICIAN Unavailable Sudha Greene NP Primary Care Provider [phone] Agatha Null DPM, Podiatry /Foot and Ankle Surgery Unavailable [facility] [place] [facility] Unavailable Reason for Visit * Reason Comments Medication Refill zolpidem (AMBIEN) 5 MG tablet Encounter Details Date Type Department Care Team (Late st Contact Info) Description 02/20/2018 Refill [facility] [address] [place] [address] Vanda Guerrero MD [address] [facility] [place] [address] Medication Refill (zolpidem (AMBIEN) 5 MG tablet) [...] and in station out basket or on MA/QUALITY CONTROL TECH RAW MATERIALS/RN desk * Telephone Encounter - Gayathri Mcallister RN - 02/21/2018 3:33 PM CDT DIRECTOR OF VOCATIONAL GUIDANCE checked: patient refilled: 06/12, 07/07 and 10/04 [...] documented as of this encounter Care Teams Compounder Helper Relationship Specialty Start Date End Date Vanda Guerrero MD [address] [place] [address] [place] [address] PCP - General Internal Medicine 04/08/15 01/08/19 Vanda Guerrero MD [address] [place] [address] [place] [address] PCP - Assigned PCP 07/24/16 06/15/18 Noreen Flores APRN HEPATOLOGY PHYSICIAN [address] [place] [address] [place] [address] PCP - Assigned PCP 06/16/18 08/13/18 Noreen Flores APRN HEPATOLOGY PHYSICIAN [address] [place] [address] [place] [address] PCP - General Nurse Practitioner 01/09/19 12/12/21 Sudha Greene, MAURICIO [address] [address] PCP - General 11/01/22 Noreen Flores APRN HEPATOLOGY PHYSICIAN [address] [place] [address] [place] [address] Assigned PCP 06/16/18 05/26/22 Kalyan Galvan Personal Advocate & Liaison (PAL) 08/08/19 04/26/21 Lashae Trevino, [facility] [address] [place] [address] [place] [address] Pharmacist Pharmacist 10/14/19 12/01/20 Eduardo Sharma MD [address] [place] [address] [place] [id number] Assigned Sleep Provider 04/02/2005/07 [place] [address] [facility] [address] [place] [address] Assigned Musculoskeletal Provider 04/02/20 08/24/20 Marcelo Artis PA-C [address] [facility] [address] [place], [place] 706907 Assigned Musculoskeletal Provider 08/25/20 08/20/21 Rodrigo Man PA-C [address] [place] [address] [place] [id number] Assigned Surgical Provider 08/25/20 11/27/20 Noreen Flores APRN HEPATOLOGY PHYSICIAN [address] [facility] [place] [address] Assigned PCP 08/05/22 03/16/23 Agatha Null DPM, Podiatry/Foot and Ankle Surgery [address] [place] [address] Assigned Musculoskeletal Provider 11/04/22 [facility] [address] [facility] [place] [id number] Assigned PCP 07/05/23 documented as of this encounter
--- OUTSIDE RECORDS SUMMARY | 2023-11-02 07:09 | XMS_ITS | Encounter Summary ---
Author Organization [place] Address [address] [place] [address] Care Team Providers Care Regulator Mechanic Name Role Phone Vanda Guerrero MD Primary Care Provider [phone] Vanda Guerrero MD Unavailable [phone] Jeana-JdNoreen castro APRN PAINT STRIPING MACHINE OPERATOR Unavailable [facility]en Miles APRN PAINT STRIPING MACHINE OPERATOR Unavailable [facility]-JdNoreen castro BULK GAS SPECIALIST PAINT STRIPING MACHINE OPERATOR Primary Car e Provider Kalyan Galvan Unavailable Unavailable Lashae Trevino [facility] Unavailable Eduardo Sharma MD Unavailable Rios Monteiro MD Unavailable [phone] Marcelo Artis PA-C Unavailable Rodrigo Man-C Unavailable Jeana-Noreen Miles APRN PAINT STRIPING MACHINE OPERATOR Unavailable Sudha Greene NP Primary Care Provider Agatha Null DPM, Podiatry /Foot and Ankle Surgery Unavailable [facility] Unavailable Reason for Referral * Diagnostic Imaging Ultrasound - Closed Specialty Diagnoses / Procedures Referred By Rylie garcia Referred To Contact Radiology. Diagnoses Alkaline phosphatase elevation Procedures US Abdomen Limited Vanda Guerrero MD [address] [facility] [place] [address] Rh Ultrasound [facility] [address] [place] [address] [place] [address] Referral ID Status Reason Start Date Expiration Date Visits Re quested Visits Authorized [id number] Closed 06/15/2017 06/15/2018 1 1 HOUSE SUPERVISOR Reason for Visit * Reason Onset Date Comments Lab Result Notice 06/15/2017 response to 06/12/17 result note Encounter Details Date Type Department Care Team (Late st Contact Info) Description 06/15/2017 MyC Medical Advice [facility] [address] [facility] [address] [place], [place] [phone] [place] [address] [place] [address] [place] [address] Lab Result Notice (response to 06/12/17 resu... [...] Kallie Celaya RN - 06/15/2017 4:26 PM DYE HOUSE SUPERVISOR Sent [employer] message. HOUSE SUPERVISOR * Telephone Encounter - Vanda Guerrero MD - 06/15/2017 2:48 PM DYE HOUSE SUPERVISOR Orders placed - please let patient know. HOUSE SUPERVISOR * Telephone Encounter - Kallie Celaya RN - 06/15/2017 2:31 PM DYE HOUSE SUPERVISOR Patient ok to restart Metformin & for US. T'd up. Please advise. HOUSE SUPERVISOR documented in this encounter Plan of Treatment Not on file documented as of this encounter Results * US Abdomen Limited (06/21/2017 10:11 AM DYE HOUSE SUPERVISOR) Anatomical Region Laterality Modality Abdomen/Pelvis Ultrasound Impressions 06/21/2017 10:49 AM DYE HOUSE SUPERVISOR IMPRESSION: ??Fatty infiltration of the liver. No gallstones or bile duct dilatation. BRIDGETTE LOZA MD Narrative 06/21/2017 10:49 AM DYE HOUSE SUPERVISOR ULTRASOUND ABDOMEN LIMITED 06/21/2017 10:11 AM [...] Depression Total Score: 12 018 1:02 PM DYE HOUSE SUPERVISOR documented as of this encounter Care Teams Regulator Mechanic Relationship Specialty Start Date End Date Vanda Guerrero MD [address] [place] [address] [place] [address] PCP - General Internal Medicine 04/08/15 01/08/19 Vanda Guerrero MD [address] [place] [address] [place] [address] PCP - Assigned PCP 07/24/16 06/15/18 Noreen Flores APRN PAINT STRIPING MACHINE OPERATOR [address] [place] [address] [place] [address] PCP - Assigned PCP 06/16/18 08/13/18 Noreen Flores APRN PAINT STRIPING MACHINE OPERATOR [address] [place] [address] [place] [address] PCP - General Nurse Practitioner 01/09/19 12/12/21 Sudha Greene, MAURICIO [address] [address] PCP - General 11/01/22 Noreen Flores APRN PAINT STRIPING MACHINE OPERATOR [address] [place] [address] [place] [address] Assigned PCP 06/16/18 05/26/22 Kalyan Galvan Personal Advocate & Liaison (PAL) 08/08/19 04/26/21 Lashae Trevino, [facility] [address] [place] [address] Pharmacist Pharmacist 10/14/19 12/01/20 Eduardo Sharma MD [address] [place] [address] [place] [address] Assigned Sleep Provider 04/02/2005/07 [place] [address] [facility] [address] [place] [address] Assigned Musculoskeletal Provider 04/02/20 08/24/20 Marcelo Artis PA-C [address] [facility] [address] [place] [address] Assigned Musculoskeletal Provider 08/25/20 08/20/21 Rodrigo Man PA-C [address] [place] [address] Assigned Surgical Provider 08/25/20 11/27/20 Noreen Flores APRN CNP [address] [place] [address] [place] [address] Assigned PCP 08/05/22 03/16/23 Agatha Null DPM, Podiatry/Foot and Ankle Surgery [address] [place] [address] [address] [place] [address] Assigned Musculoskeletal Provider 11/04/22 [facility] [address] [facility] [place] [address] Assigned PCP 07/05/23 documented as of this encounter
--- OUTSIDE RECORDS SUMMARY | 2023-11-02 07:09 | XMS_ITS | Encounter Summary ---
Author Organization [place] Address [address] [place] [address] Care Team Providers Care Parking Inspector Name Role Phone Vanda Guerrero MD Primary Care Provider [phone] Vanda Guerrero MD Unavailable [phone] Jeana-Noreen Miles APRN CREEL SELECTOR Unavailable [facility]-Noreen Miles APRN CREEL SELECTOR Unavailable [facility]-JdNoreen castro DIGESTER CAPPER CREEL SELECTOR Primary Car e Provider Kalyan Galvan Unavailable Unavailable Lashae Trevino [facility] Unavailable Eduardo Sharma MD Unavailable Rios Monteiro MD Unavailable [phone] Marcelo Artis PA-C Unavailable Rodrigo ManC Unavailable [facility]ana-Noreen Miles APRN CREEL SELECTOR Unavailable Sudha Greene NP Primary Care Provider Agatha Null DPM, Podiatry /Foot and Ankle Surgery Unavailable [facility] Unavailable Reason for Visit * Reason Onset Date Comments Appointment 11/30/2016 reminder Encounter Details Date Type Department Care Team (Late st Contact Info) Description 11/30/[address] [facility] [place] [address] [place] [phone] Kallie Celaya, RN Appointment (reminder) Social History [...] as of this encounter Care Teams Parking Inspector Relationship Specialty Start Date End Date Vanda Guerrero MD [address] [place] [address] [place] [address] PCP - General Internal Medicine 04/08/15 01/08/19 Vanda Guerrero MD [address] [place] [address] [place] [address] PCP - Assigned PCP 07/24/16 06/15/18 Noreen Flores APRN CREEL SELECTOR [address] [place] [address] [place] [address] PCP - Assigned PCP 06/16/18 08/13/18 Noreen Flores APRN CREEL SELECTOR [address] [place] [address] [place] [address] PCP - General Nurse Practitioner 01/09/19 12/12/21 Sudha Greene, MAURICIO [address] [address] PCP - General 11/01/22 Noreen Flores APRN CREEL SELECTOR [facility]5 [facility] [place] [address] Assigned PCP 06/16/18 05/26/22 Kalyan Galvan Personal Advocate & Liaison (PAL) 08/08/19 04/26/21 Lashae Trevino, [facility] [address] [facility] [place] [id number] Pharmacist Pharmacist 10/14/19 12/01/20 Eduardo Sharma MD [address] [place] [address] [place] [address]235 Assigned Sleep Provider 04/02/2005/07 [place] [address] [place] [address] Assigned Musculoskeletal Provider 04/02/20 08/24/20 Marcelo Artis PA-C [address] [place] [address] Assigned Musculoskeletal Provider 08/25/20 08/20/21 Rodrigo Man PA-C [address] [place] [address] Assigned Surgical Provider 08/25/20 11/27/20 Noreen Flores APRN CREEL SELECTOR [address] [facility] [place] [address] Assigned PCP 08/05/22 03/16/23 Agatha Null DPM, Podiatry/Foot and Ankle Surgery [address] [place] [address] Assigned Musculoskeletal Provider 11/04/22 [facility] [facility] [address] [facility] [place] [phone] Assigned PCP 07/05/23 documented as of this encounter
--- OUTSIDE RECORDS SUMMARY | 2023-11-02 07:09 | XMS_ITS | Encounter Summary ---
Author Organization [place] Address [address] [place] [address] Care Team Providers Care Vending Supervisor Name Role Phone Vanda Guerrero MD Primary Care Provider [phone] Vanda Guerrero MD Unavailable [phone] Jeana-Nroeen Miles APRN APPRENTICE PAINTER BRUSH Unavailable [facility]-Noreen Miles APRN APPRENTICE PAINTER BRUSH Unavailable [facility]-JdNoreen castro HOOP MAKER MACHINE APPRENTICE PAINTER BRUSH Primary Car e Provider Kalyan Galvan Unavailable Unavailable Lashae Trevino [facility] Unavailable Eduardo Sharma MD Unavailable Rios Monteiro MD Unavailable [phone] Marcelo Artis PA-C Unavailable Rodrigo ManC Unavailable [facility]ana-Noreen Miles APRN APPRENTICE PAINTER BRUSH Unavailable Sudha Greene NP Primary Care Provider Agatha Null DPM, Podiatry /Foot and Ankle Surgery Unavailable [facility] Unavailable Reason for Visit * Reason Onset Date Comments Clarification 05/19/2016 Encounter Details Date Type Department Care Team (Late st Contact Info) Description 05/19/2016 MyC Medical Advice [facility] [address] [place] [address] Agatha Null, DPM, Podiatry/Foot and Ankle Surgery [address] [place] [address] Clarification Social History Tobacco Use Types Packs/Day [...] Total Score: 11 05/02/ 016 7:09 AM SUBSEA ENGINEER documented as of this encounter Care Teams Vending Supervisor Relationship Specialty Start Date End Date Vanda Guerrero MD [address] [place] [address] [place] [address] PCP - General Internal Medicine 04/08/15 01/08/19 Vanda Guerrero MD [address] [place] [address] [place] [address] PCP - Assigned PCP 07/24/16 06/15/18 Noreen Flores APRN CNP [address] [place] [address] [place] [address] PCP - Assigned PCP 06/16/18 08/13/18 Noreen Flores APRN APPRENTICE PAINTER BRUSH [address] [facility] [place] [address] PCP - General Nurse Practitioner 01/09/19 12/12/21 Sudha Greene NP [address] [address] PCP - General 11/01/22 Noreen Flores APRN APPRENTICE PAINTER BRUSH [address] [place] [address] [place] [address] Assigned PCP 06/16/18 05/26/22 Kalyan Galvan Personal Advocate & Liaison (PAL) 08/08/19 04/26/21 [facility] [address] [place] [address] [place] [address] Pharmacist Pharmacist 10/14/19 12/01/20 Eduardo Sharma MD [address] [place] [address] Assigned Sleep Provider 04/02/2005/07 [place] [address] [facility] [address] [place] [address] Assigned Musculoskeletal Provider 04/02/20 08/24/20 Marcelo Artis PA-C [address] [facility] [address] [place] [address] Assigned Musculoskeletal Provider 08/25/20 08/20/21 Rodrigo Man PA-C [address] [place] [address] Assigned Surgical Provider 08/25/20 11/27/20 Noreen Flores APRN APPRENTICE PAINTER BRUSH [address] [facility] [place] [address] Assigned PCP 08/05/22 03/16/23 Agatha Null DPM, Podiatry/Foot and Ankle Surgery [address] [place] [address] Assigned Musculoskeletal Provider 11/04/22 [facility] [facility] [address] [facility] [place] [address] Assigned PCP 07/05/23 documented as of this encounter
--- OUTSIDE RECORDS SUMMARY | 2023-11-02 07:09 | XMS_ITS | Encounter Summary ---
Author Organization [place] Address [address] [place] [address] Care Team Providers Care Bus Operator Name Role Phone Vanda Guerrero MD Primary Care Provider [phone] Vanda Guerrero MD Unavailable [phone] Jeana-Noreen Miles APRN CRYSTAL LAPPER Unavailable [facility] Miles APRN CRYSTAL LAPPER Unavailable [facility]-JdNoreen castro GLOBAL MARKETING COORDINATOR CRYSTAL LAPPER Primary Car e Provider Kalyan Galvan Unavailable Unavailable Lashae Trevino [facility] Unavailable Eduardo Sharma MD Unavailable Rios Monteiro MD Unavailable Marcelo Artis PA-C Unavailable Rodrigo Man PA-C Unavailable Jeana-Noreen Miles APRN CRYSTAL LAPPER Unavailable Sudha Greene NP Primary Care Provider Agatha Null DPM, Podiatry /Foot and Ankle Surgery Unavailable [facility] Unavailable Reason for Visit * Reason Onset Date Comments Patient/info Update 05/01/2016 foot prob Encounter Details Date Type Department Care Team (Late st Contact Info) Description 05/01/2016 MyC Medical Advice [facility] [address] [place] [address] Agatha Null DPM, Podiatry/Foot and Ankle Surgery [address] [place] [address] Patient/info Update (foot prob) Social History Tobacco [...] as of this encounter Care Teams Bus Operator Relationship Specialty Start Date End Date Vanda Guerrero MD [address] [place] [address] [place] [address] PCP - General Internal Medicine 04/08/15 01/08/19 Vanda Guerrero MD [address] [place] [address] [place] [address] PCP - Assigned PCP 07/24/16 06/15/18 Noreen Flores APRN CNP [address] [place] [address] [place] [address] PCP - Assigned PCP 06/16/18 08/13/18 Noreen Flores APRN CRYSTAL LAPPER [address] [place] [address] [place] [address] PCP - General Nurse Practitioner 01/09/19 12/12/21 Sudha Greene NP [address] [address] PCP - General 11/01/22 Noreen Flores APRN CRYSTAL LAPPER [address] [place] [address] [place] [address] Assigned PCP 06/16/18 05/26/22 Kalyan Galvan Personal Advocate & Liaison (PAL) 08/08/19 04/26/21 [facility] [address] [place] [address] [place] [address] Pharmacist Pharmacist 10/14/19 12/01/20 Eduardo Sharma MD [address] [address] Assigned Sleep Provider 04/02/2005/07 Rios Monteiro MD [address] [place] [address] Assigned Musculoskeletal Provider 04/02/20 08/24/20 Marcelo Artis PA-C [address] [address] Assigned Musculoskeletal Provider 08/25/20 08/20/21 Rodrigo Man PA-C [address] [place] [address] Assigned Surgical Provider 08/25/20 11/27/20 Noreen Flores APRN CRYSTAL LAPPER [address] [facility] [place] [address] Assigned PCP 08/05/22 03/16/23 Agatha Null DPM, Podiatry/Foot and Ankle Surgery [address] [place] 137[address] Assigned Musculoskeletal Provider 11/04/22 [facility] [place] [address] [facility] [place] [phone] Assigned PCP 07/05/23 documented as of this encounter
--- OUTSIDE RECORDS SUMMARY | 2023-11-02 07:09 | XMS_ITS | Encounter Summary ---
Author Organization [place] Address [address] [place] [address] Care Team Providers Care Clinical Safety Specialist Name Role Phone Selma Good APRN SUPERVISOR POST WAVE Primary Care Pro vider Vanda Guerrero MD Primary Care Provider [phone] Vanda Guerrero MD Unavailable [phone] Jeana-JdNoreen castro APRN, CNP Unavailable Jeana-JdNoreen castro APRN, CNP Unavailable JeanaNoreen Garcia APRN SUPERVISOR POST WAVE Primary Car e Provider Kalyan Galvan Unavailable Unavailable Lashae Trevino [facility] Unavailable [phone] Eduardo Sharma MD Unavailable Rios Monteiro MD Unavailable [phone] Marcelo Artis PA-C Unavailable [phone] Rodrigo Man PA-C Unavailable [phone] Jeana-Noreen Miles APRN SUPERVISOR POST WAVE Unavailable Sudha Greene NP Primary Care Provider Agatha NullM, Podiatry /Foot and Ankle Surgery Unavailable [facility] Unavailable Encounter Details Date Type Department Care Team (Late st Contact Info) Description 09/24/2014 MyC Medical Advice [address] [place] [phone] Shante Joya, RERE Social History Tobacco Use Types Packs/Day Years [...] as of this encounter Care Teams Clinical Safety Specialist Relationship Specialty Start Date End Date Selma Good APRN SUPERVISOR POST WAVE [address]305 [facility] [place] [address] PCP - General 04/09/08 04/07/15 Vanda Guerrero MD [address] [facility] [place] [address] PCP - General Internal Medicine 04/08/15 01/08/19 Vanda Guerrero MD 3305 [facility] [place] [address] PCP - Assigned PCP 07/24/16 06/15/18 Noreen Flores APRN SUPERVISOR POST WAVE 3305 [facility] [place] [address] PCP - Assigned PCP 06/16/18 08/13/18 Noreen Flores APRN SUPERVISOR POST WAVE [facility]5 [facility] [place] [address] PCP - General Nurse Practitioner 01/09/19 12/12/21 Sudha Greene NP [address] [address] PCP - General 11/01/22 Noreen Flores APRN SUPERVISOR POST WAVE [address] [place] [address] [place] [address] Assigned PCP 06/16/18 05/26/22 Kalyan Galvan Personal Advocate & Liaison (PAL) 08/08/19 04/26/21 Lashae Trevino [facility] [address] [place] [address] [place] [address] Pharmacist Pharmacist 10/14/19 12/01/20 Eduardo Sharma MD [address] [address] Assigned Sleep Provider 04/02/2005/07 R[place] [address] [place] [address] 300 [place] [address] Assigned Musculoskeletal Provider 04/02/20 08/24/20 Marcelo Artis PA-C [address] [facility] [address] [place] [address] Assigned Musculoskeletal Provider 08/25/20 08/20/21 Rodrigo Man PA-C [address] [place] [address] Assigned Surgical Provider 08/25/20 11/27/20 Noreen Flores APRN SUPERVISOR POST WAVE 3305 [facility] [place] [address] Assigned PCP 08/05/22 03/16/23 Agatha Null DPM, Podiatry/Foot and Ankle Surgery [address] [place] [address] Assigned Musculoskeletal Provider 11/04/22 [facility] [place] [facility] [address] [facility] [address] [place] [address] Assigned PCP 07/05/23 documented as of this encounter
--- OUTSIDE RECORDS SUMMARY | 2023-11-02 07:09 | XMS_ITS | Encounter Summary ---
Author Organization [place] Address [address] [place] [address] Care Team Providers Care Manufacturing Controls Engineer Name Role Phone Vanda Guerrero MD Primary Care Provider [phone] Vanda Guerrero MD Unavailable [phone] Jeana-Noreen Miles APRN MARK UP DESIGNER Unavailable [facility]-Noreen Miles APRN MARK UP DESIGNER Unavailable [facility]-JdNoreen castro MOBILE DEVELOPER MARK UP DESIGNER Primary Car e Provider Kalyan Galvan Unavailable Unavailable Lashae Trevino [facility] Unavailable Eduardo Sharma MD Unavailable Rios Monteiro MD Unavailable Marcelo Artis PA-C Unavailable Rodrigo ManC Unavailable Jeana-Noreen Miles APRN MARK UP DESIGNER Unavailable Sudha Greene NP Primary Care Provider Agatha Null DPM, Podiatry /Foot and Ankle Surgery Unavailable [facility] [place] [facility] Unavailable Reason for Visit * Reason Onset Date Comments MyChart Communication 02/05/2018 Encounter Details Date Type Department Care Team (Late st Contact Info) Description 02/05/2018 [facility] [place] [address] [place] [address] Drive [address] [place] [phone] Vanda Guerrero MD [address] [place] [address] [place] [address] MyChart Communication Social History Tobacco Use Types [...] Total Score: 12 06/12/ 018 1:02 PM NUTRITIONAL CHEMIST documented as of this encounter Care Teams Manufacturing Controls Engineer Relationship Specialty Start Date End Date Vanda Guerrero MD [address] [place] [address] [place] [address] PCP - General Internal Medicine 04/08/15 01/08/19 Vanda Guerrero MD [address] [place] [address] [place] [address] PCP - Assigned PCP 07/24/16 06/15/18 Noreen Flores APRN MARK UP DESIGNER [address] [place] [address] [place] [address] PCP - Assigned PCP 06/16/18 08/13/18 Noreen Flores APRN MARK UP DESIGNER [address] [place] [address] [place] [address] PCP - General Nurse Practitioner 01/09/19 12/12/21 Sudha Greene NP [address] [address] PCP - General 11/01/22 Noreen Flores APRN MARK UP DESIGNER [address] [place] [address] [place] [address] Assigned PCP 06/16/18 05/26/22 Kalyan Galvan Personal Advocate & Liaison (PAL) 08/08/19 04/26/21 Lashae Trevino, [facility] [address] [place] [address] [place] [address] Pharmacist Pharmacist 10/14/19 12/01/20 Eduardo Sharma MD [address] [place] [address] [place] [id number] Assigned Sleep Provider 04/02/2005/07 [place] [address] [facility] [place] [address] [place] [address] Assigned Musculoskeletal Provider 04/02/20 08/24/20 Marcelo Artis PA-C 444[address] [facility] [place] [address] [place], [place] 567937 Assigned Musculoskeletal Provider 08/25/20 08/20/21 Rodrigo Man PA-C [address] [place] [address] [place] [address] Assigned Surgical Provider 08/25/20 11/27/20 Noreen Flores APRN MARK UP DESIGNER [address] [facility] [place] [address] Assigned PCP 08/05/22 03/16/23 Agatha Null DPM, Podiatry/Foot and Ankle Surgery [address] [place] [address] [place] [address] Assigned Musculoskeletal Provider 11/04/22 [facility] - [place] [facility] [address] [facility] [place] [id number] Assigned PCP 07/05/23 documented as of this encounter
--- OUTSIDE RECORDS SUMMARY | 2023-11-02 07:09 | XMS_ITS | Encounter Summary ---
Author Organization [place] Address [address] [place] [address] Care Team Providers Care Manager Of Human Resources Name Role Phone Vanda Guerrero MD Primary Care Provider [phone] Vanda Guerrero MD Unavailable [phone] Jeana-Noreen Miles APRN HOG COUNTER Unavailable [facility]Noreen Miles APRN HOG COUNTER Unavailable [facility]-JdNoreen castro LEAF BLENDER HOG COUNTER Primary Car e Provider Kalyan Galvan Unavailable Unavailable Lashae Trevino [facility] Unavailable [phone] Eduardo Sharma MD Unavailable Rios Monteiro MD Unavailable Marcelo Artis PA-C Unavailable Rodrigo ManC Unavailable Jeana-Noreen Miles APRN HOG COUNTER Unavailable Sudha Greene NP Primary Care Provider Agatha Null DPM, Podiatry /Foot and Ankle Surgery Unavailable [facility] [place] [facility] Unavailable Reason for Visit * Reason Onset Date Comments Refill Request 08/30/2016 Metformin 500mg tab Encounter Details Date Type Department Care Team (Late st Contact Info) Description 08/30/2016 Refill [facility] [place] [address] [facility] [address] [place] [address] Vanda Guerrero MD [address] [facility] [place] [address] Refill Request (Metformin 500mg tab) Social History [...] Office Visit with G, P or [facility] prescribing provider: 06/01/16 BP Readings from Last [...] Depression Total Score: 11 016 7:09 AM CARAMEL CANDY MAKER documented as of this encounter Care Teams Manager Of Human Resources Relationship Specialty Start Date End Date Vanda Guerrero MD [address] [place] [address] [place] [address] PCP - General Internal Medicine 04/08/15 01/08/19 Vanda Guerrero MD [address] [place] [address] [place] [address] PCP - Assigned PCP 07/24/16 06/15/18 Noreen Flores APRN HOG COUNTER [address] [place] [address] [place] [address] PCP - Assigned PCP 06/16/18 08/13/18 Noreen Flores APRN HOG COUNTER [address] [place] [address] [place] [address] PCP - General Nurse Practitioner 01/09/19 12/12/21 Sudha Greene NP [address] [address] PCP - General 11/01/22 Noreen Flores APRN HOG COUNTER [address] [place] [address] [place] [address] Assigned PCP 06/16/18 05/26/22 Kalyan Galvan Personal Advocate & Liaison (PAL) 08/08/19 04/26/21 Lashae Trevino, [facility] [address] [id number] Pharmacist Pharmacist 10/14/19 12/01/20 Eduardo Sharma MD [address] [place] [address] [place] [address] Assigned Sleep Provider 04/02/2005/07 [place] [address] 571087 Assigned Musculoskeletal Provider 04/02/20 08/24/20 Marcelo Artis PA-C [address] [address] Assigned Musculoskeletal Provider 08/25/20 08/20/21 Rodrigo Man PA-C [address] [address] Assigned Surgical Provider 08/25/20 11/27/20 Noreen Flores APRN HOG COUNTER [address] [place] [address] [place] [address] Assigned PCP 08/05/22 03/16/23 Agatha Null DPM, Podiatry/Foot and Ankle Surgery [address] [facility] 300 [place] [address] Assigned Musculoskeletal Provider 11/04/22 [facility] [place] [address] [place] [address] Assigned PCP 07/05/23 documented as of this encounter
--- OUTSIDE RECORDS SUMMARY | 2023-11-02 07:10 | XMS_ITS | Encounter Summary ---
Author Organization [place] Address [address] [place] [address] Care Team Providers Care Ore Trimmer Name Role Phone Selma Good APRN SHEET METAL ASSEMBLER AND RIVETER Primary Care Pro vider Vanda Guerrero MD Primary Care Provider [phone] Vanda Guerrero MD Unavailable [phone] Jeana-JdNoreen castro APRN, CNP Unavailable Jeana-JdNoreen castro APRN, CNP Unavailable JeanaNoreen Garcia APRN SHEET METAL ASSEMBLER AND RIVETER Primary Car e Provider Kalyan Galvan Unavailable Unavailable Lashae Trevino [facility] Unavailable [phone] Eduardo Sharma MD Unavailable Rios Monterio MD Unavailable [phone] Marcelo Artis PA-C Unavailable [phone] Rodrigo Man PA-C Unavailable [phone] Jeana-Noreen Miles APRN SHEET METAL ASSEMBLER AND RIVETER Unavailable Sudha Greene NP Primary Care Provider [phone] Agatha NullM, Podiatry /Foot and Ankle Surgery Unavailable [facility] [place] [facility] Unavailable Encounter Details Date Type Department Care Team (Late st Contact Info) Description 05/28/2012 [facility] [address] [place] [address] Alejo Casas Social History [...] documented as of this encounter Care Teams Ore Trimmer Relationship Specialty Start Date End Date Selma Good APRN SHEET METAL ASSEMBLER AND RIVETER [address] [facility] [place] [address] PCP - General 04/09/08 04/07/15 Vanda Guerrero MD [address] [facility] [place] [address] PCP - General Internal Medicine 04/08/15 01/08/19 Vanda Guerrero MD [address] [place] [address] [place] [address] PCP - Assigned PCP 07/24/16 06/15/18 Noreen Flores APRN SHEET METAL ASSEMBLER AND RIVETER [address] [place] [address] [place] [address] PCP - Assigned PCP 06/16/18 08/13/18 Noreen Flores APRN SHEET METAL ASSEMBLER AND RIVETER [address] [facility] [place] [address] PCP - General Nurse Practitioner 01/09/19 12/12/21 Sudha Greene NP [address] [address] PCP - General 11/01/22 Noreen Flores APRN SHEET METAL ASSEMBLER AND RIVETER [address] [facility] [place] [address] Assigned PCP 06/16/18 05/26/22 Kalyan Galvan Personal Advocate & Liaison (PAL) 08/08/19 04/26/21 [facility] [address] [place] [address] [place] [address] Pharmacist Pharmacist 10/14/19 12/01/20 Eduardo Sharma MD [address] [facility] 103 [place] [address] Assigned Sleep Provider 04/02/2005/07 [place] [address] [facility] 300 [place] [address] Assigned Musculoskeletal Provider 04/02/20 08/24/20 Marcelo Artis PA-C [address]792 [facility] 300 [place] [address] Assigned Musculoskeletal Provider 08/25/20 08/20/21 Rodrigo Man PA-C [address] [place] [address] Assigned Surgical Provider 08/25/20 11/27/20 Noreen Flores APRN SHEET METAL ASSEMBLER AND RIVETER [address] [facility] [place] [address] Assigned PCP 08/05/22 03/16/23 Agatha Null DPM, Podiatry/Foot and Ankle Surgery [address] [place] [address] [place] [address] Assigned Musculoskeletal Provider 11/04/22 [facility] - [place] [facility] [address] [facility] [place] [address] Assigned PCP 07/05/23 documented as of this encounter
--- OUTSIDE RECORDS SUMMARY | 2023-11-02 07:10 | XMS_ITS | Encounter Summary ---
Author Organization [place] Address [address] [place] [address] Care Team Providers Care Travel Counselor Automobile Club Name Role Phone Selma Good APRN UTILIZATION SPECIALIST Primary Care Pro vider Vanda Guerrero MD Primary Care Provider [phone] Vanda Guerrero MD Unavailable [phone] Jeana-JdNoreen castro APRN, CNP Unavailable Jeana-JdNoreen castro APRN, CNP Unavailable JeanaRejiJdNoreen castro APRN, CNP Primary Car e Provider Kalyan Galvan Unavailable Unavailable Lashae Trevino [facility] Unavailable [phone] Eduardo Sharma MD Unavailable Rios Monteiro MD Unavailable [phone] Marcelo Artis PA-C Unavailable [phone] Rodrigo ManC Unavailable [phone] Jeana-Noreen Miles APRN UTILIZATION SPECIALIST Unavailable Sudha Greene NP Primary Care Provider Agatha NullM, Podiatry /Foot and Ankle Surgery Unavailable [facility] [place] [facility] Unavailable Reason for Visit * Reason Onset Date Comments Appointment 08/10/2010 next diabetes? Encounter Details Date Type Department Care Team (Late st Contact Info) Description 08/10/2010 [facility]C Medical Advice [facility] [address] [place] [address] [place] [address] Selma Good APRN UTILIZATION SPECIALIST [address] [facility] [place] [address] Appointment (next diabetes? ) Social History Tobacco [...] as of this encounter Care Teams Travel Counselor Automobile Club Relationship Specialty Start Date End Date Selma Good APRN UTILIZATION SPECIALIST [address] [place] [address] [place] [address] PCP - General 04/09/08 04/07/15 Vanda Guerrero MD [address] [place] [address] [place] [address] PCP - General Internal Medicine 04/08/15 01/08/19 Vanda Guerrero MD [address] [place] [address] [place] [address] PCP - Assigned PCP 07/24/16 06/15/18 Noreen Flores APRN UTILIZATION SPECIALIST [address] [place] [address] [place] [address] PCP - Assigned PCP 06/16/18 08/13/18 Noreen Flores APRN UTILIZATION SPECIALIST [address] [place] [address] [place] [address] PCP - General Nurse Practitioner 01/09/19 12/12/21 Sudha Greene NP [address] [address] PCP - General 11/01/22 Noreen Flores APRN UTILIZATION SPECIALIST [address] [place] [address] [place] [address] Assigned PCP 06/16/18 05/26/22 Kalyan Galvan Personal Advocate & Liaison (PAL) 08/08/19 04/26/21 [facility] [address] [place] [address] [place] [phone] Pharmacist Pharmacist 10/14/19 12/01/20 Eduardo Sharma MD [address] [place] [address] Assigned Sleep Provider 04/02/2005/07 Rios Monteiro MD [address] [place] [address] 761157 Assigned Musculoskeletal Provider 04/02/20 08/24/20 Marcelo Artis, PA-C [address] [facility] 300 [place] [address] Assigned Musculoskeletal Provider 08/25/20 08/20/21 Rodrigo Man PA-C [address] [place] [address] Assigned Surgical Provider 08/25/20 11/27/20 Noreen Flores APRN UTILIZATION SPECIALIST [address] [facility] [place] [address] Assigned PCP 08/05/22 03/16/23 Agatha Null DPM, Podiatry/Foot and Ankle Surgery [address] [place] [address] [place] [address] Assigned Musculoskeletal Provider 11/04/22 Clinic - [place] [facility] [address] [facility] [address] [place] [address] Assigned PCP 07/05/23 documented as of this encounter
--- OUTSIDE RECORDS SUMMARY | 2023-11-02 07:10 | XMS_ITS | Encounter Summary ---
Author Organization [place] Address [address] [place] [address] Care Team Providers Care Computer Systems Designer Name Role Phone Selma Good APRN MATERIAL MANAGER Primary Care Pro vider Vanda Guerrero MD Primary Care Provider [phone] Vanda Guerrero MD Unavailable [phone] Jeana-JdNoreen castro APRN, CNP Unavailable Jeana-JdNoreen catsro APRN, CNP Unavailable JeanaRejiJdNoreen castro APRN, CNP Primary Car e Provider Kalyan Galvan Unavailable Unavailable Lashae Trevino [facility] Unavailable [phone] Eduardo Sharma MD Unavailable Rios Monteiro MD Unavailable [phone] Marcelo Artis PA-C Unavailable [phone] Rodrigo ManC Unavailable [phone] Jeana-Noreen Miles APRN MATERIAL MANAGER Unavailable Sudha Greene NP Primary Care Provider Agatha NullM, Podiatry /Foot and Ankle Surgery Unavailable [facility] [place] [facility] Unavailable Reason for Visit * Reason Onset Date Comments Vaginal Problem 05/24/2011 itchy -worse wit h cream Encounter Details Date Type Department Care Team (Late st Contact Info) Description 05/24/2011 [facility] [address] [place] [address] [place] [address] Selma Good, STAKE SETTER MATERIAL MANAGER [address] [facility] [place] [address] Vaginal Problem (itchy -worse with cream ) [...] as of this encounter Care Teams Computer Systems Designer Relationship Specialty Start Date End Date Selma Good, SEAN MATERIAL MANAGER [address] [place] [address] [place] [address] PCP - General 04/09/08 04/07/15 Vanda Guerrero MD [address] [place] [address] [place] [address] PCP - General Internal Medicine 04/08/15 01/08/19 Vanda Guerrero MD [address] [place] [address] [place] [address] PCP - Assigned PCP 07/24/16 06/15/18 Noreen Flores APRN MATERIAL MANAGER [address] [facility] [place] [address] PCP - Assigned PCP 06/16/18 08/13/18 Noreen Flores APRN MATERIAL MANAGER [address] [place] [address] [place] [address] PCP - General Nurse Practitioner 01/09/19 12/12/21 Sudha Greene NP [address] [address] PCP - General 11/01/22 Noreen Flores APRN MATERIAL MANAGER [address] [place] [address] [place] [address] Assigned PCP 06/16/18 05/26/22 Kalyan Galvan Personal Advocate & Liaison (PAL) 08/08/19 04/26/21 Lashae Trevino, [facility] [address] [place] [address] [place] [address] Pharmacist Pharmacist 10/14/19 12/01/20 Eduardo Sharma MD 6363 [facility] 103 [place], [place] 433035 Assigned Sleep Provider 04/02/2005/07 Rios Monteiro MD [address] [place] [address] 300 [place] [address] Assigned Musculoskeletal Provider 04/02/20 08/24/20 Marcelo Artis PA-C [address] [facility] 300 [place] [address] Assigned Musculoskeletal Provider 08/25/20 08/20/21 Rodrigo Man PA-C [address] [facility] [address] [place] [address] Assigned Surgical Provider 08/25/20 11/27/20 Noreen Flores APRN MATERIAL MANAGER [address] [place] [address] [place] [id number] Assigned PCP 08/05/22 03/16/23 Agatha Null DPM, Podiatry/Foot and Ankle Surgery [address] [facility] 300 [place] [address] Assigned Musculoskeletal Provider 11/04/22 Clinic - [place] [facility] [address] [facility] [place] [id number] Assigned PCP 07/05/23 documented as of this encounter
--- OUTSIDE RECORDS SUMMARY | 2023-11-02 07:10 | XMS_ITS | Encounter Summary ---
Author Organization [place] Address [address] [place] [address] Care Team Providers Care Bag Maker Name Role Phone Selma Good APRN VTC TECHNICIAN Primary Care Pro vider Vanda Guerrero MD Primary Care Provider [phone] Vanda Guerrero MD Unavailable [phone] Jeana-JdNoreen castro APRN, CNP Unavailable Jeana-JdNoreen castro APRN, CNP Unavailable JeanaRejiJdNoreen castro APRN, CNP Primary Car e Provider Kalyan Galvan Unavailable Unavailable Lashae Trevino [facility] Unavailable [phone] Eduardo Sharma MD Unavailable Rios Monteiro MD Unavailable [phone] Marcelo Artis PA-C Unavailable [phone] Rodrigo ManC Unavailable [phone] Jeana-Noreen Miles APRN VTC TECHNICIAN Unavailable Sudha Greene NP Primary Care Provider Agatha NullM, Podiatry /Foot and Ankle Surgery Unavailable [facility] [place] [facility] Unavailable Reason for Visit * Reason Onset Date Comments Medication Question 05/29/2012 wellbutrin Encounter Details Date Type Department Care Team (Late st Contact Info) Description 05/29/2012 MyC Medical Advice [address] [place] [address] Selma Good, SEAN VTC TECHNICIAN [address] [place] [address] [place] [address] Medication Question (wellbutrin) Social History Tobacco Use [...] documented as of this encounter Care Teams Bag Maker Relationship Specialty Start Date End Date Selma Good, CRANE CHASER VTC TECHNICIAN [address] [place] [address] [place] [address] PCP - General 04/09/08 04/07/15 Vanda Guerrero MD [address] [place] [address] [place] [address] PCP - General Internal Medicine 04/08/15 01/08/19 Vanda Guerrero MD [address] [place] [address] [place] [address] PCP - Assigned PCP 07/24/16 06/15/18 Noreen Flores APRN VTC TECHNICIAN [address] [place] [address] [place] [address] PCP - Assigned PCP 06/16/18 08/13/18 Noreen Flores APRN VTC TECHNICIAN [address] [place] [address] [place] [address] PCP - General Nurse Practitioner 01/09/19 12/12/21 Sudha Greene NP [address] [address] PCP - General 11/01/22 Noreen Flores APRN VTC TECHNICIAN [address] [place] [address] [place] [address] Assigned PCP 06/16/18 05/26/22 Kalyan Galvan Personal Advocate & Liaison (PAL) 08/08/19 04/26/21 Lashae Trevino, [facility] [address] [place] [address] [place] [phone] Pharmacist Pharmacist 10/14/19 12/01/20 Eduardo Sharma MD [address] [facility] 103 [place] [id number] Assigned Sleep Provider 04/02/2005/07 [place] [address] [facility] 300 [place] [id number] Assigned Musculoskeletal Provider 04/02/20 08/24/20 Marcelo Artis PA-C [address] [facility] 300 [place] [address] Assigned Musculoskeletal Provider 08/25/20 08/20/21 Rodrigo Man PA-C [address] [facility] 450 [place] [address] Assigned Surgical Provider 08/25/20 11/27/20 Noreen Flores APRN CNP [address] [place] [address] [place] [address] Assigned PCP 08/05/22 03/16/23 Agatha Null DPM, Podiatry/Foot and Ankle Surgery [address] [facility] 300 [place] [address] Assigned Musculoskeletal Provider 11/04/22 Clinic - [place] [facility] [address] [place] [address] [place] [id number] Assigned PCP 07/05/23 documented as of this encounter
--- OUTSIDE RECORDS SUMMARY | 2023-11-02 07:10 | XMS_ITS | Encounter Summary ---
Author Organization [facility] Address [address] [place] [address] Care Team Providers Care Chief Technology Officer Name Role Phone Selma Good APRN EMT INTERMEDIATE Primary Care Pro vider Vanda Guerrero MD Primary Care Provider [phone] Vanda Guerrero MD Unavailable [phone] Jeana-JdNoreen castro APRN, CNP Unavailable Jeana-JdNoreen castro APRN, CNP Unavailable JeanaNoreen Garcia APRN, CNP Primary Car e Provider Kalyan Galvan Unavailable Unavailable Lashae Trevino [facility] Unavailable [phone] Eduardo Sharma MD Unavailable Rios Monteiro MD Unavailable [phone] Marcelo Artis PA-C Unavailable [phone] Rodrigo ManC Unavailable [phone] Jeana-Noreen Miles APRN EMT INTERMEDIATE Unavailable Sudha Greene NP Primary Care Provider Agatha NullM, Podiatry /Foot and Ankle Surgery Unavailable [facility] Unavailable Reason for Visit * Reason Onset Date Comments Symptoms 03/07/2012 uti Encounter Details Date Type Department Care Team (Late st Contact Info) Description 03/07/2012 MyC Medical Advice [address] [place] [address] Selma Good APRN EMT INTERMEDIATE [address] [facility] [place] [address] Symptoms (uti) Social History Tobacco Use Types [...] as of this encounter Care Teams Chief Technology Officer Relationship Specialty Start Date End Date Selma Good APRN EMT INTERMEDIATE [address] [place] [address] [place] [address] PCP - General 04/09/08 04/07/15 Vanda Guerrero MD [address] [place] [address] [place] [address] PCP - General Internal Medicine 04/08/15 01/08/19 Vanda Guerrero MD [address] [place] [address] [place] [address] PCP - Assigned PCP 07/24/16 06/15/18 Noreen Flores APRN EMT INTERMEDIATE [address] [place] [address] [place] [address] PCP - Assigned PCP 06/16/18 08/13/18 Noreen Flores APRN EMT INTERMEDIATE [address] [place] [address] [place] [address] PCP - General Nurse Practitioner 01/09/19 12/12/21 Sudha Greene NP [address] [address] PCP - General 11/01/22 Noreen Flores APRN EMT INTERMEDIATE [address] [place] [address] [place] [address] Assigned PCP 06/16/18 05/26/22 Kalyan Galvan Personal Advocate & Liaison (PAL) 08/08/19 04/26/21 [facility] [address] [place] [address] [place] [phone] Pharmacist Pharmacist 10/14/19 12/01/20 Eduardo Sharma MD [address] [place] [address] Assigned Sleep Provider 04/02/2005/07 Rios Monteiro MD [address] [place] [address] 535357 Assigned Musculoskeletal Provider 04/02/20 08/24/20 Marcelo Artis, PA-C [id number] [place] [address] [address] [place] [address] Assigned Musculoskeletal Provider 08/25/20 08/20/21 Rodrigo Man PA-C [address] [place] [address] Assigned Surgical Provider 08/25/20 11/27/20 Noreen Flores APRN EMT INTERMEDIATE 3305 [facility] [place] [address] Assigned PCP 08/05/22 03/16/23 Agatha Null DPM, Podiatry/Foot and Ankle Surgery [address] [place] [address] [place] [address] Assigned Musculoskeletal Provider 11/04/22 Clinic - [facility] [address] [facility] [address] [place] [address] Assigned PCP 07/05/23 documented as of this encounter
--- OUTSIDE RECORDS SUMMARY | 2023-11-02 07:10 | XMS_ITS | Encounter Summary ---
Author Organization [facility] Address [address] [place] [address] Care Team Providers Care Tax Director Name Role Phone Selma Good APRN DRIVING SCHOOL INSTRUCTOR Primary Care Pro vider Vanda Guerrero MD Primary Care Provider [phone] Vanda Guerrero MD Unavailable [phone] Jeana-JdNoreen castro APRN, CNP Unavailable Jeana-JdNoreen castro APRN, CNP Unavailable JeanaNoreen Garcia APRN DRIVING SCHOOL INSTRUCTOR Primary Car e Provider Kalyan Galvan Unavailable Unavailable Lashae Trevino [facility] Unavailable [phone] Eduardo Sharma MD Unavailable Rios Monteiro MD Unavailable [phone] Marcelo Artis PA-C Unavailable [phone] Rodrigo Man PA-C Unavailable [phone] Jeana-Noreen Miles APRN DRIVING SCHOOL INSTRUCTOR Unavailable Sudha Greene NP Primary Care Provider Agatha NullM, Podiatry /Foot and Ankle Surgery Unavailable [facility] Unavailable Encounter Details Date Type Department Care Team (Late st Contact Info) Description 05/21/2013 [facility] Medical Advice [address] [place] [address] Alejo Casas Social History [...] Start Date End Date Selma Good APRN DRIVING SCHOOL INSTRUCTOR 3305 [facility] [place] [address] PCP - General 04/09/08 04/07/15 Vanda Guerrero MD [address]305 [facility] [place] [address] PCP - General Internal Medicine 04/08/15 01/08/19 Vanda Guerrero MD [address] [place] [address] [place] [address] PCP - Assigned PCP 07/24/16 06/15/18 Noreen Flores APRN DRIVING SCHOOL INSTRUCTOR [address] [place] [address] [place] [address] PCP - Assigned PCP 06/16/18 08/13/18 Noreen Flores APRN DRIVING SCHOOL INSTRUCTOR 3305 [facility] [place] [address] PCP - General Nurse Practitioner 01/09/19 12/12/21 Sudha Greene NP [address] [address] PCP - General 11/01/22 Noreen Flores APRN DRIVING SCHOOL INSTRUCTOR [address]305 [facility] [place] [address] Assigned PCP 06/16/18 05/26/22 Kalyan Galvan Personal Advocate & Liaison (PAL) 08/08/19 04/26/21 [facility] [address] [place] [address] [place] [address] Pharmacist Pharmacist 10/14/19 12/01/20 Eduardo Sharma MD [address] [facility] 103 [place] [address] Assigned Sleep Provider 04/02/2005/07 [place] [address] [facility] [address] [place] [address] Assigned Musculoskeletal Provider 04/02/20 08/24/20 Marcelo Artis PA-C [address] [facility] [address] [place] [address] Assigned Musculoskeletal Provider 08/25/20 08/20/21 Rodrigo Man PA-C [address] [place] [address] Assigned Surgical Provider 08/25/20 11/27/20 Noreen Flores APRN DRIVING SCHOOL INSTRUCTOR 3305 [facility] [place] [address] Assigned PCP 08/05/22 03/16/23 Agatha Null DPM, Podiatry/Foot and Ankle Surgery [address] [place] [address] [place] [address] Assigned Musculoskeletal Provider 11/04/22 Clinic - Nita Pringle [facility] 3305 [facility] [place] [address] Assigned PCP 07/05/23 documented as of this encounter
--- OUTSIDE RECORDS SUMMARY | 2023-11-02 07:10 | XMS_ITS | Encounter Summary ---
Author Organization [facility] Address [address] [place] [address] Care Team Providers Care Human Services Care Specialist Name Role Phone Selma Good APRN MANUFACTURING COORDINATOR Primary Care Pro vider Vanda Guerrero MD Primary Care Provider [phone] Vanda Guerrero MD Unavailable [phone] Jeana-JdNoreen castro APRN, CNP Unavailable Jeana-JdNoreen castro APRN, CNP Unavailable JeanaNoreen Garcia APRN MANUFACTURING COORDINATOR Primary Car e Provider Kalyan Galvan Unavailable Unavailable Lashae Trevino [facility] Unavailable [phone] Eduardo Sharma MD Unavailable iRos Monteiro MD Unavailable [phone] Marcelo Artis PA-C Unavailable [phone] Rodrigo Man PA-C Unavailable [phone] Jeana-Noreen Miles APRN MANUFACTURING COORDINATOR Unavailable Sudha Greene NP Primary Care Provider Agatha NullM, Podiatry /Foot and Ankle Surgery Unavailable [facility] Unavailable Encounter Details Date Type Department Care Team (Late st Contact Info) Description 01/11/2010 [facility] [address] [place] [address] [place] [address] Alejo Casas Social History [...] as of this encounter Care Teams Human Services Care Specialist Relationship Specialty Start Date End Date Selma Good APRN MANUFACTURING COORDINATOR 3305 [facility] [place] [address] PCP - General 04/09/08 04/07/15 Vanda Guerrero MD [facility]5 [facility] [place] [address] PCP - General Internal Medicine 04/08/15 01/08/19 Vanda Guerrero MD [address] [place] [address] [place] [address] PCP - Assigned PCP 07/24/16 06/15/18 Noreen Flores APRN MANUFACTURING COORDINATOR [facility]5 [facility] [place] [address] PCP - Assigned PCP 06/16/18 08/13/18 Noreen Flores APRN MANUFACTURING COORDINATOR [address] [place] [address] [place] [address] PCP - General Nurse Practitioner 01/09/19 12/12/21 Sudha Greene NP [address] [address] PCP - General 11/01/22 Noreen Flores APRN MANUFACTURING COORDINATOR [address] [place] [address] [place] [address] Assigned PCP 06/16/18 05/26/22 Kalyan Galvan Personal Advocate & Liaison (PAL) 08/08/19 04/26/21 [facility] [address] [place] [address] [place] [address] Pharmacist Pharmacist 10/14/19 12/01/20 Eduardo Sharma MD [address] [place] [address] [place] [address] Assigned Sleep Provider 04/02/2005/07 [place] [address] [facility] 300 [place] [address] Assigned Musculoskeletal Provider 04/02/20 08/24/20 Marcelo Artis PA-C [address] [facility] [place] [address] [place] [address] Assigned Musculoskeletal Provider 08/25/20 08/20/21 Rodrigo Man PA-C [address] [place] [address] [place] [address] Assigned Surgical Provider 08/25/20 11/27/20 Noreen Flores APRN MANUFACTURING COORDINATOR [address]305 [facility] [place] [address] Assigned PCP 08/05/22 03/16/23 Agatha Null DPM, Podiatry/Foot and Ankle Surgery [address] [place] [address] [place] 919407 Assigned Musculoskeletal Provider 11/04/22 [facility] [place] 330 [facility] [place] [address] Assigned PCP 07/05/23 documented as of this encounter
--- OUTSIDE RECORDS SUMMARY | 2023-11-02 07:10 | XMS_ITS | Encounter Summary ---
Author Organization [facility] Address [address] [place] [address] Care Team Providers Care Pattern Repair Person Name Role Phone Selma Good APRN DRY CANS BACK TENDER Primary Care Pro vider Vanda Guerrero MD Primary Care Provider [phone] Vanda Guerrero MD Unavailable [phone] Jeana-JdNoreen castro APRN, CNP Unavailable Jeana-JdNoreen castro APRN, CNP Unavailable JeanaNoreen Garcia APRN, CNP Primary Car e Provider Kalyan Galvan Unavailable Unavailable Lashae Trevino [facility] Unavailable [phone] Eduardo Sharma MD Unavailable Rios Monteiro MD Unavailable [phone] Marcelo Artis PA-C Unavailable [phone] Rodrigo ManC Unavailable [phone] Jeana-Noreen Miles APRN DRY CANS BACK TENDER Unavailable Sudha Greene NP Primary Care Provider Agatha NullM, Podiatry /Foot and Ankle Surgery Unavailable [facility] Unavailable Reason for Visit * Reason Onset Date Comments Foot Problems 03/19/2014 numb Encounter Details Date Type Department Care Team (Late st Contact Info) Description 03/19/2014 [facility] [address] [place] [address] [place] [address] Selma Good APRN DRY CANS BACK TENDER [address]305 [facility] [place] [address] Foot Problems (numb) Social History Tobacco Use [...] as of this encounter Care Teams Pattern Repair Person Relationship Specialty Start Date End Date Selma Good APRN DRY CANS BACK TENDER [address] [place] [address] [place] [address] PCP - General 04/09/08 04/07/15 Vanda Guerrero MD [address] [place] [address] [place] [address] PCP - General Internal Medicine 04/08/15 01/08/19 Vanda Guerrero MD [address] [place] [address] [place] [address] PCP - Assigned PCP 07/24/16 06/15/18 Noreen Flores APRN DRY CANS BACK TENDER [address] [place] [address] [place] [address] PCP - Assigned PCP 06/16/18 08/13/18 Noreen Flores APRN DRY CANS BACK TENDER [address] [place] [address] [place] [address] PCP - General Nurse Practitioner 01/09/19 12/12/21 Suhda Greene NP [address] [address] PCP - General 11/01/22 Noreen Flores APRN DRY CANS BACK TENDER [address] [place] [address] [place] [address] Assigned PCP 06/16/18 05/26/22 Kalyan Galvan Personal Advocate & Liaison (PAL) 08/08/19 04/26/21 [facility] [address] [place] [address] [place] [phone] Pharmacist Pharmacist 10/14/19 12/01/20 Eduardo Sharma MD [address] [facility] [address] [place] [address] Assigned Sleep Provider 04/02/2005/07 Rios Monteiro MD [address] [place] [address] 834367 Assigned Musculoskeletal Provider 04/02/20 08/24/20 Marcelo Artis, PA-C [address] [facility] 300 [place] [address] Assigned Musculoskeletal Provider 08/25/20 08/20/21 Rodrigo Man PA-C [address] [facility] 450 [place] [address] Assigned Surgical Provider 08/25/20 11/27/20 Noreen Flores APRN DRY CANS BACK TENDER 3305 [facility] [place] [address] Assigned PCP 08/05/22 03/16/23 Agatha Null DPM, Podiatry/Foot and Ankle Surgery [address] [place] [address] [place] [address] Assigned Musculoskeletal Provider 11/04/22 Clinic - N[facility] Pringle [facility] 3305 [facility] DAVID ORDOÑEZ [id number] Assigned PCP 07/05/23 documented as of this encounter
--- OUTSIDE RECORDS SUMMARY | 2023-11-02 07:10 | XMS_ITS | Encounter Summary ---
Author Organization [facility] Address [address] [place] [address] Care Team Providers Care Medical Data Analyst Name Role Phone Selma Good APRN SR. PRICING ANALYST Primary Care Pro vider Vanda Guerrero MD Primary Care Provider [phone] Vanda Guerrero MD Unavailable [phone] Jeana-JdNoreen castro APRN, CNP Unavailable Jeana-JdNoreen castro APRN, CNP Unavailable JeanaNoreen Garcia APRN SR. PRICING ANALYST Primary Car e Provider Kalyan Galvan Unavailable Unavailable Lashae Trevino [facility] Unavailable [phone] Eduardo Sharma MD Unavailable Rios Monteiro MD Unavailable [phone] Marcelo Artis PA-C Unavailable [phone] Rodrigo Man PA-C Unavailable [phone] Jeana-Noreen Miles APRN SR. PRICING ANALYST Unavailable Sudha Greene NP Primary Care Provider Agatha NullM, Podiatry /Foot and Ankle Surgery Unavailable [facility] Unavailable Encounter Details Date Type Department Care Team (Late st Contact Info) Description 04/17/2010 [facility] [address] [place] [address] [place] [phone] Selma Good APRN SR. PRICING ANALYST [address] [place] [address] [place] [address] Social History Tobacco Use Types Packs/Day Years [...] respond to pt regarding her sodium intake. EF OPERATOR documented in this encounter Plan of Treatment Not on file documented as of this encounter Visit Diagnoses Not on filedocumented in this encounter Additional Health Concerns Infection Onset Date Last Indicated Resolved Time Rule Out COVID-19 08/25/2020 08/25/2020 08/26/2020 3:23 PM CDT Rule Out COVID-19 11/26/2022 11/26/2022 11/27/2022 3:38 PM CDT documented as of this encounter Care Teams Medical Data Analyst Relationship Specialty Start Date End Date Selma Good APRN SR. PRICING ANALYST [address] [place] [address] [place] [address] PCP - General 04/09/08 04/07/15 Vanda Guerrero MD [address] [place] [address] [place] [address] PCP - General Internal Medicine 04/08/15 01/08/19 Vanda Guerrero MD [address] [place] [address] [place] [address] PCP - Assigned PCP 07/24/16 06/15/18 Noreen Flores APRN SR. PRICING ANALYST [address] [place] [address] [place] [address] PCP - Assigned PCP 06/16/18 08/13/18 Noreen Flores APRN SR. PRICING ANALYST [address] [place] [address] [place] [address] PCP - General Nurse Practitioner 01/09/19 12/12/21 Sudha Greene, MAUR[place] [address] [address] PCP - General 11/01/22 Noreen Flores APRN SR. PRICING ANALYST [address] [place] [address] [place] [address] Assigned PCP 06/16/18 05/26/22 Kalyan Galvan Personal Advocate & Liaison (PAL) 08/08/19 04/26/21 [facility] [address] [employer] [place] [address] Pharmacist Pharmacist 10/14/19 12/01/20 Eduardo Sharma MD [address] [facility] 103 [place] 802185 Assigned Sleep Provider 04/02/2005/07 [place] [address] [facility] 300 [place], [place] [address] Assigned Musculoskeletal Provider 04/02/20 08/24/20 Marcelo Artis PA-C [address] [address] Assigned Musculoskeletal Provider 08/25/20 08/20/21 Rodrigo Man PA-C 6545 [facility] 450 [place] [address] Assigned Surgical Provider 08/25/20 11/27/20 Noreen Flores APRN CNP [address] [place] [address] [place] [address] Assigned PCP 08/05/22 03/16/23 Agatha Null DPM, Podiatry/Foot and Ankle Surgery [address] [facility] 300 [place] [address] Assigned Musculoskeletal Provider 11/04/22 [facility] [address] [place] [address] [place] [address] Assigned PCP 07/05/23 documented as of this encounter
--- OUTSIDE RECORDS SUMMARY | 2023-11-02 07:10 | XMS_ITS | Encounter Summary ---
Author Organization [facility] Address [address] [place] [address] Care Team Providers Care Mammographer Name Role Phone Selma Good APRN PICKLING GRADER Primary Care Pro vider Vanda Guerrero MD Primary Care Provider [phone] Vanda Guerrero MD Unavailable [phone] Jeana-JdNoreen castro APRN, CNP Unavailable Jeana-JdNoreen castro APRN, CNP Unavailable JeanaNoreen Garcia APRN PICKLING GRADER Primary Car e Provider Kalyan Galvan Unavailable Unavailable Lashae Trevino [facility] Unavailable [phone] Eduardo Sharma MD Unavailable Rios Monteiro MD Unavailable [phone] Marcelo Artis PA-C Unavailable [phone] Rodrigo Man PA-C Unavailable [phone] Jeana-Noreen Miles APRN PICKLING GRADER Unavailable Sudha Greene NP Primary Care Provider Agatha NullM, Podiatry /Foot and Ankle Surgery Unavailable [facility] [place] Unavailable Encounter Details Date Type Department Care Team (Late st Contact Info) Description 12/05/2012 [facility] Medical Advice [address] [place] [address] Alejo Casas Social History [...] documented as of this encounter Care Teams Mammographer Relationship Specialty Start Date End Date Selma Good APRN PICKLING GRADER 3305 [facility] [place] [address] PCP - General 04/09/08 04/07/15 Vanda Guerrero MD 3305 [facility] [place] [address] PCP - General Internal Medicine 04/08/15 01/08/19 Vanda Guerrero MD [address] [place] [address] [place] [address] PCP - Assigned PCP 07/24/16 06/15/18 Noreen Flores APRN PICKLING GRADER [address] [place] [address] [place] [address] PCP - Assigned PCP 06/16/18 08/13/18 Noreen Flores APRN PICKLING GRADER 3305 [facility] [place] [address] PCP - General Nurse Practitioner 01/09/19 12/12/21 Sudha Greene NP [address] [address] PCP - General 11/01/22 Noreen Flores APRN PICKLING GRADER 3305 [facility] [place] [address] Assigned PCP 06/16/18 05/26/22 Kalyan Galvan Personal Advocate & Liaison (PAL) 08/08/19 04/26/21 [facility] [address] [place] [address] [place] [address] Pharmacist Pharmacist 10/14/19 12/01/20 Eduardo Sharma MD [address] [facility] 103 [place] [address] Assigned Sleep Provider 04/02/2005/07 [place] [address] [facility] 300 [place] [address] Assigned Musculoskeletal Provider 04/02/20 08/24/20 Marcelo Artis PA-C [address] [facility] 300 [place] [address] Assigned Musculoskeletal Provider 08/25/20 08/20/21 Rodrigo Man PA-C [address] [place] [address] Assigned Surgical Provider 08/25/20 11/27/20 Noreen Flores APRN PICKLING GRADER 3305 [facility] [place] [address] Assigned PCP 08/05/22 03/16/23 Agatha Null DPM, Podiatry/Foot and Ankle Surgery [address] [place] [address] [place] [address] Assigned Musculoskeletal Provider 11/04/22 Clinic - Nita Pringle [facility] 3305 [facility] [place] [address] Assigned PCP 07/05/23 documented as of this encounter
--- OUTSIDE RECORDS SUMMARY | 2023-11-02 07:10 | XMS_ITS | Encounter Summary ---
Author Organization [place] Address [address] [place] [address] Care Team Providers Care Real Estate Utilization Officer Name Role Phone Selma Good APRN SALES ASSOCIATE CASHIER Primary Care Pro vider Vanda Guerrero MD Primary Care Provider [phone] Vanda Guerrero MD Unavailable [phone] Jeana-JdNoreen castro APRN, CNP Unavailable Jeana-JdNoreen castro APRN, CNP Unavailable JeanaNoreen Garcia APRN SALES ASSOCIATE CASHIER Primary Car e Provider Kalyan Galvan Unavailable Unavailable Lashae Trevino [facility] Unavailable [phone] Eduardo Sharma MD Unavailable Rios Monteiro MD Unavailable [phone] Marcelo Artis PA-C Unavailable [phone] Rodrigo Man PA-C Unavailable [phone] Jeana-Noreen Miles APRN SALES ASSOCIATE CASHIER Unavailable Sudha Greene NP Primary Care Provider Agatha NullM, Podiatry /Foot and Ankle Surgery Unavailable [facility] Unavailable Encounter Details Date Type Department Care Team (Late st Contact Info) Description 07/21/2010 [facility] [place] [phone] Selma Good APRN SALES ASSOCIATE CASHIER [address] [facility] [place] [address] Social History Tobacco Use Types Packs/Day Years [...] of this encounter Care Teams Real Estate Utilization Officer Relationship Specialty Start Date End Date Selma Good APRN SALES ASSOCIATE CASHIER [address] [place] [address] [place] [address] PCP - General 04/09/08 04/07/15 Vanda Guerrero MD [address] [place] [address] [place] [address] PCP - General Internal Medicine 04/08/15 01/08/19 Vanda Guerrero MD [address] [place] [address] [place] [address] PCP - Assigned PCP 07/24/16 06/15/18 Noreen Flores APRN SALES ASSOCIATE CASHIER [address] [place] [address] [place] [address] PCP - Assigned PCP 06/16/18 08/13/18 Noreen Flores APRN SALES ASSOCIATE CASHIER [address] [place] [address] [place] [address] PCP - General Nurse Practitioner 01/09/19 12/12/21 Sudha Greene, MAURICIO [address] [address] PCP - General 11/01/22 Noreen Flores APRN SALES ASSOCIATE CASHIER [address] [place] [address] [place] [address] Assigned PCP 06/16/18 05/26/22 Kalyan Galvan Personal Advocate & Liaison (PAL) 08/08/19 04/26/21 [facility] [place] [id number] Pharmacist Pharmacist 10/14/19 12/01/20 Eduardo Sharma MD 6363 [facility] 103 [place] [address] Assigned Sleep Provider 04/02/2005/07 [place] [address] [place] [address] Assigned Musculoskeletal Provider 04/02/20 08/24/20 Marcelo Artis PA-C [address] [place] [address] Assigned Musculoskeletal Provider 08/25/20 08/20/21 Rodrigo Man PA-C [address] [place] [address] Assigned Surgical Provider 08/25/20 11/27/20 Noreen Flores APRN SALES ASSOCIATE CASHIER [address] [facility] [place] [id number] Assigned PCP 08/05/22 03/16/23 Agatha Null DPM, Podiatry/Foot and Ankle Surgery [address] [place] [address] Assigned Musculoskeletal Provider 11/04/22 Clinic - [facility] [address] [facility] DAVID ORDOÑEZ [id number] Assigned PCP 07/05/23 documented as of this encounter
--- OUTSIDE RECORDS SUMMARY | 2023-11-02 07:10 | XMS_ITS | Encounter Summary ---
Author Organization [place] Address [address] [place] [address] Care Team Providers Care Marine Drafter Name Role Phone Selma Good APRN TRAVEL FREIGHT AND PASSENGER AGENT Primary Care Pro vider Vanda Guerrero MD Primary Care Provider [phone] Vanda Guerrero MD Unavailable [phone] Jeana-JdNoreen castro APRN, CNP Unavailable Jeana-JdNoreen castro APRN, CNP Unavailable JeanaNoreen Garcia APRN, CNP Primary Car e Provider Kalyan Galvan Unavailable Unavailable Lashae Trevino [facility] Unavailable [phone] Eduardo Sharma MD Unavailable Rios Monteiro MD Unavailable [phone] Marcelo Artis PA-C Unavailable [phone] Rodrigo ManC Unavailable [phone] Jeana-Noreen Miles APRN TRAVEL FREIGHT AND PASSENGER AGENT Unavailable Sudha Greene NP Primary Care Provider Agatha NullM, Podiatry /Foot and Ankle Surgery Unavailable [facility] Unavailable Reason for Visit * Reason Onset Date Comments Patient Request 01/26/2010 Encounter Details Date Type Department Care Team (Late st Contact Info) Description 01/26/2010 [facility] [address] [place] [address] [place] [phone] Selma Good APRN TRAVEL FREIGHT AND PASSENGER AGENT [address]305 [facility] [place] [address] Patient Request Social History Tobacco Use Types [...] as of this encounter Care Teams Marine Drafter Relationship Specialty Start Date End Date Selma Good, PUMP ATTENDANT TRAVEL FREIGHT AND PASSENGER AGENT [address] [place] [address] [place] [address] PCP - General 04/09/08 04/07/15 Vanda Guerrero MD [address] [place] [address] [place] [address] PCP - General Internal Medicine 04/08/15 01/08/19 Vanda Guerrero MD [address] [place] [address] [place] [address] PCP - Assigned PCP 07/24/16 06/15/18 Noreen Flores APRN TRAVEL FREIGHT AND PASSENGER AGENT [address] [place] [address] [place] [address] PCP - Assigned PCP 06/16/18 08/13/18 Noreen Flores APRN TRAVEL FREIGHT AND PASSENGER AGENT [address] [place] [address] [place] [address] PCP - General Nurse Practitioner 01/09/19 12/12/21 Sudha Greene NP [address] [address] PCP - General 11/01/22 Noreen Flores APRN TRAVEL FREIGHT AND PASSENGER AGENT [address] [place] [address] [place] [address] Assigned PCP 06/16/18 05/26/22 Kalyan Galvan Personal Advocate & Liaison (PAL) 08/08/19 04/26/21 Lashae Trevino, [facility] [address] [facility] [place] [address] Pharmacist Pharmacist 10/14/19 12/01/20 Eduardo Sharma MD 6363 [facility] 103 [place] [address] Assigned Sleep Provider 04/02/2005/[address] [place] [address] [facility] 300 [place] [address] Assigned Musculoskeletal Provider 04/02/20 08/24/20 Marcelo Artis, PA-C [address] [facility] 300 [facility] [place] [address] Assigned Musculoskeletal Provider 08/25/20 08/20/21 Rodrigo Man PA-C [address] [facility] [facility] 450 [place] [address] Assigned Surgical Provider 08/25/20 11/27/20 Noreen Flores APRN TRAVEL FREIGHT AND PASSENGER AGENT [address] [place] [address] [place] [phone] Assigned PCP 08/05/22 03/16/23 Agatha Null DPM, Podiatry/Foot and Ankle Surgery [address] [facility] 300 [place] [address] Assigned Musculoskeletal Provider 11/04/22 [facility] 3305 [facility] [place] [id number] Assigned PCP 07/05/23 documented as of this encounter
--- OUTSIDE RECORDS SUMMARY | 2023-11-02 07:10 | XMS_ITS | Encounter Summary ---
Author Organization [place] Address [address] [place] [address] Care Team Providers Care Sports Broadcasting Internship Name Role Phone Selma Good APRN MANAGER MOTOR Primary Care Pro vider Vnada Guerrero MD Primary Care Provider [phone] Vanda Guerrero MD Unavailable [phone] Jeana-JdNoreen castro APRN, CNP Unavailable Jeana-JdNoreen castro APRN, CNP Unavailable JeanaNoreen Garcia APRN MANAGER MOTOR Primary Car e Provider Kalyan Galvan Unavailable Unavailable Lashae Trevino [facility] Unavailable [phone] Eduardo Sharma MD Unavailable Rios Monteiro MD Unavailable [phone] Marcelo Artis PA-C Unavailable [phone] Rodrigo Man PA-C Unavailable [phone] Jeana-Noreen Miles APRN MANAGER MOTOR Unavailable Sudha Greene NP Primary Care Provider Agatha NullM, Podiatry /Foot and Ankle Surgery Unavailable [facility] Unavailable Encounter Details Date Type Department Care Team (Late st Contact Info) Description 02/11/2010 [facility] Medical Advice [facility] [address] [place] [address] [place] [phone] Alejo Casas Social History [...] documented as of this encounter Care Teams Sports Broadcasting Internship Relationship Specialty Start Date End Date Selma Good APRN MANAGER MOTOR 3305 [facility] [place] [address] PCP - General 04/09/08 04/07/15 Vanda Guerrero MD [facility]5 [facility] [place] [address] PCP - General Internal Medicine 04/08/15 01/08/19 Vanda Guerrero MD [address] [place] [address] [place] [address] PCP - Assigned PCP 07/24/16 06/15/18 Noreen Flores APRN MANAGER MOTOR [facility]5 [facility] [place] [address] PCP - Assigned PCP 06/16/18 08/13/18 Noreen Flores APRN MANAGER MOTOR [address] [place] [address] [place] [address] PCP - General Nurse Practitioner 01/09/19 12/12/21 Sudha Greene NP [address] [address] PCP - General 11/01/22 Noreen Flores APRN MANAGER MOTOR [address] [place] [address] [place] [address] Assigned PCP 06/16/18 05/26/22 Kalyan Galvan Personal Advocate & Liaison (PAL) 08/08/19 04/26/21 [facility] [address] [place] [address] [place] [address] Pharmacist Pharmacist 10/14/19 12/01/20 Eduardo Sharma MD [address] [place] [address] Assigned Sleep Provider 04/02/2005/07 [place] [address] [facility] 300 [place] [address] Assigned Musculoskeletal Provider 04/02/20 08/24/20 Marcelo Artis PA-C 25307 [facility] [address] 300 [place] [address] Assigned Musculoskeletal Provider 08/25/20 08/20/21 Rodrigo Man PA-C [address] [place] [address] Assigned Surgical Provider 08/25/20 11/27/20 Noreen Flores APRN MANAGER MOTOR 3305 [facility] [place] [address] Assigned PCP 08/05/22 03/16/23 Agatha Null DPM, Podiatry/Foot and Ankle Surgery [address] [place] [id number] Assigned Musculoskeletal Provider 11/04/22 [facility] 3306 [facility] [place] [address] Assigned PCP 07/05/23 documented as of this encounter
--- OUTSIDE RECORDS SUMMARY | 2023-11-02 07:10 | XMS_ITS | Encounter Summary ---
Author Organization [place] Address [address] [place] [address] Care Team Providers Care Armature Balancer Name Role Phone Selma Good APRN STATION MECHANIC APPRENTICE Primary Care Pro vider Vanda Guerrero MD Primary Care Provider [phone] Vanda Guerrero MD Unavailable [phone] Jeana-JdNoreen castro APRN, CNP Unavailable Jeana-JdNoreen castro APRN, CNP Unavailable JeanaRejiJdNoreen castro APRN, CNP Primary Car e Provider Kalyan Galvan Unavailable Unavailable Lashae Trevino [facility] Unavailable [phone] Eduardo Sharma MD Unavailable Rios Monteiro MD Unavailable [phone] Marcelo Artis PA-C Unavailable [phone] Rodrigo ManC Unavailable [phone] Jeana-Noreen Miles APRN STATION MECHANIC APPRENTICE Unavailable Sudha Greene NP Primary Care Provider Agatha NullM, Podiatry /Foot and Ankle Surgery Unavailable [facility] Unavailable Reason for Visit * Reason Onset Date Comments Cellulitis 09/13/2010 not completely g one Encounter Details Date Type Department Care Team (Late st Contact Info) Description 09/13/2010 [facility]C [facility] [address] [place] [address] [place] [phone] Selma Good, SENIOR PUBLICATIONS SPECIALIST STATION MECHANIC APPRENTICE [address] [facility] [place] [address] Cellulitis (not completely gone ) Social History [...] documented as of this encounter Care Teams Armature Balancer Relationship Specialty Start Date End Date Selma Good, SEAN STATION MECHANIC APPRENTICE [address] [place] [address] [place] [address] PCP - General 04/09/08 04/07/15 Vanda Guerrero MD [address] [place] [address] [place] [address] PCP - General Internal Medicine 04/08/15 01/08/19 Vanda Guerrero MD [address] [place] [address] [place] [address] PCP - Assigned PCP 07/24/16 06/15/18 Noreen Flores APRN STATION MECHANIC APPRENTICE [address] [place] [address] [place] [address] PCP - Assigned PCP 06/16/18 08/13/18 Noreen Flores APRN STATION MECHANIC APPRENTICE [address] [place] [address] [place] [address] PCP - General Nurse Practitioner 01/09/19 12/12/21 Sudha Greene NP [address] [address] PCP - General 11/01/22 Noreen Flores APRN STATION MECHANIC APPRENTICE [address] [place] [address] [place] [address] Assigned PCP 06/16/18 05/26/22 Kalyan Galvan Personal Advocate & Liaison (PAL) 08/08/19 04/26/21 [facility] [address] [place] [address] [place] [phone] Pharmacist Pharmacist 10/14/19 12/01/20 Eduardo Sharma MD [address] [facility] 103 [place] [address] Assigned Sleep Provider 04/02/2005/07 Rios Monteiro MD [address] [place] [address] 550757 Assigned Musculoskeletal Provider 04/02/20 08/24/20 Marcelo Artis, PA-C [address] [facility] 300 [place] [address] Assigned Musculoskeletal Provider 08/25/20 08/20/21 Rodrigo Man PA-C [address] [facility] 450 [place] [address] Assigned Surgical Provider 08/25/20 11/27/20 Noreen Flores APRN STATION MECHANIC APPRENTICE [address] [facility] [place] [address] Assigned PCP 08/05/22 03/16/23 Agatha Null DPM, Podiatry/Foot and Ankle Surgery [address] [place] [address] Assigned Musculoskeletal Provider 11/04/22 Clinic - [facility] Pring[facility] [address] [facility] [place]DO[place]EZ [id number] Assigned PCP 07/05/23 documented as of this encounter
--- OUTSIDE RECORDS SUMMARY | 2023-11-02 07:10 | XMS_ITS | Encounter Summary ---
Author Organization [place] Address [address] [place] [address] Care Team Providers Care Supervisor Shaving And Splitting Name Role Phone Selma Good APRN SALES CLERK SUPERVISOR Primary Care Pro vider Vanda Guerrero MD Primary Care Provider [phone] Vanda Guerrero MD Unavailable [phone] Jeana-JdNoreen castro APRN, CNP Unavailable Jeana-JdNoreen castro APRN, CNP Unavailable JeanaRejiJdNoreen castro APRN, CNP Primary Car e Provider Kalyan Galvan Unavailable Unavailable Lashae Trevino [facility] Unavailable [phone] Eduardo Sharma MD Unavailable Rios Monteiro MD Unavailable [phone] Marcelo Artis PA-C Unavailable [phone] Rodrigo ManC Unavailable [phone] Jeana-Noreen Miles APRN SALES CLERK SUPERVISOR Unavailable Sudha Greene NP Primary Care Provider Agatha NullM, Podiatry /Foot and Ankle Surgery Unavailable [facility] Unavailable Reason for Visit * Reason Onset Date Comments Medication Problem 06/22/2014 amitriptline side effects Encounter Details Date Type Department Care Team (Late st Contact Info) Description 06/22/2014 [facility] Medical Advice [facility] [address] [place] [address] [place] [phone] Selma Good APRN SALES CLERK SUPERVISOR [address]305 [facility] [place] [address] Medication Problem (amitriptline side effe... Social History [...] as of this encounter Care Teams Supervisor Shaving And Splitting Relationship Specialty Start Date End Date Selma Good, SEAN SALES CLERK SUPERVISOR [address] [place] [address] [place] [address] PCP - General 04/09/08 04/07/15 Vanda Guerrero MD [address] [place] [address] [place] [address] PCP - General Internal Medicine 04/08/15 01/08/19 Vanda Guerrero MD [address] [place] [address] [place] [address] PCP - Assigned PCP 07/24/16 06/15/18 Noreen Flores APRN SALES CLERK SUPERVISOR 3305 [facility] [place] [address] PCP - Assigned PCP 06/16/18 08/13/18 Noreen Flores APRN SALES CLERK SUPERVISOR [address] [place] [address] [place] [address] PCP - General Nurse Practitioner 01/09/19 12/12/21 Sudha Greene NP [address] [address] PCP - General 11/01/22 Noreen Flores APRN SALES CLERK SUPERVISOR [address] [place] [address] [place] [address] Assigned PCP 06/16/18 05/26/22 Kalyan Galvan Personal Advocate & Liaison (PAL) 08/08/19 04/26/21 [facility] [address] [place] [address] [place] [address] Pharmacist Pharmacist 10/14/19 12/01/20 Eduardo Sharma MD 6363 [facility] 103 [place] [address] Assigned Sleep Provider 04/02/2005/07 [place] [address] [facility] 300 [place] [address] Assigned Musculoskeletal Provider 04/02/20 08/24/20 Marcelo Artis PA-C [address] [facility] [address] [place] [address] Assigned Musculoskeletal Provider 08/25/20 08/20/21 Rodrigo Man PA-C [address] [facility] [address] [place] [address] Assigned Surgical Provider 08/25/20 11/27/20 Noreen Flores APRN SALES CLERK SUPERVISOR 3305 [facility] [place] [phone] Assigned PCP 08/05/22 03/16/23 Agatha Null DPM, Podiatry/Foot and Ankle Surgery [address] [facility] [address] [place] [address] Assigned Musculoskeletal Provider 11/04/22 [facility] 3305 [facility] [place] [id number] Assigned PCP 07/05/23 documented as of this encounter
--- OUTSIDE RECORDS SUMMARY | 2023-11-02 07:10 | XMS_ITS | Encounter Summary ---
Author Organization [place] Address [address] [place] [address] Care Team Providers Care [place] Tester Name Role Phone Selma Good APRN LOCATION AND MEASUREMENT TECHNICIAN Primary Care Pro vider Vanda Guerrero MD Primary Care Provider [phone] Vanda Guerrero MD Unavailable [phone] Jeana-JdNoreen castro APRN, CNP Unavailable Jeana-JdNoreen castro APRN, CNP Unavailable JeanaNoreen Garcia APRN LOCATION AND MEASUREMENT TECHNICIAN Primary Car e Provider Kalyan Galvan Unavailable Unavailable Lashae Trevino [facility] Unavailable [phone] Eduardo Sharma MD Unavailable Rios Monteiro MD Unavailable [phone] Marcelo Artis PA-C Unavailable [phone] Rodrigo Man PA-C Unavailable [phone] Jeana-Noreen Miles APRN LOCATION AND MEASUREMENT TECHNICIAN Unavailable Sudha Greene NP Primary Care Provider Agatha NullM, Podiatry /Foot and Ankle Surgery Unavailable [facility] Unavailable Encounter Details Date Type Department Care Team (Late st Contact Info) Description 07/12/2012 [facility]C Medical [facility] [phone] Selma Good APRN LOCATION AND MEASUREMENT TECHNICIAN [address] [place] [address] [place] [address] Social History Tobacco Use Types Packs/Day Years [...] as of this encounter Care Teams [place] Tester Relationship Specialty Start Date End Date Selma Good APRN LOCATION AND MEASUREMENT TECHNICIAN [address] [place] [address] [place] [address] PCP - General 04/09/08 04/07/15 Vanda Guerrero MD [address] [place] [address] [place] [address] PCP - General Internal Medicine 04/08/15 01/08/19 Vanda Guerrero MD [address] [place] [address] [place] [address] PCP - Assigned PCP 07/24/16 06/15/18 Noreen Flores APRN LOCATION AND MEASUREMENT TECHNICIAN [address] [place] [address] [place] [address] PCP - Assigned PCP 06/16/18 08/13/18 Noreen Flores APRN LOCATION AND MEASUREMENT TECHNICIAN [address] [place] [address] [place] [address] PCP - General Nurse Practitioner 01/09/19 12/12/21 Sudha Greene, MAURICIO [address] [address] PCP - General 11/01/22 Noreen Flores APRN LOCATION AND MEASUREMENT TECHNICIAN [address] [place] [address] [place] [address] Assigned PCP 06/16/18 05/26/22 Kalyan Galvan Personal Advocate & Liaison (PAL) 08/08/19 04/26/21 [facility] DAV[place] [phone] Pharmacist Pharmacist 10/14/19 12/01/20 Eduardo Sharma MD [facility] [facility] 103 [place] [address] Assigned Sleep Provider 04/02/2005/07 [place] [address] [place] [address] Assigned Musculoskeletal Provider 04/02/20 08/24/20 Marcelo Artis, PARejiC [address] [place] [address] Assigned Musculoskeletal Provider 08/25/20 08/20/21 Rodrigo Man PA-C [address] 450 [place] [address] Assigned Surgical Provider 08/25/20 11/27/20 Noreen Flores APRN LOCATION AND MEASUREMENT TECHNICIAN 3305 [facility] [place] [address] Assigned PCP 08/05/22 03/16/23 Agatha Null DPM, Podiatry/Foot and Ankle Surgery [address] [place] [address] Assigned Musculoskeletal Provider 11/04/22 [facility] 3305 [facility] [place] [address] Assigned PCP 07/05/23 documented as of this encounter
--- OUTSIDE RECORDS SUMMARY | 2023-11-02 07:10 | XMS_ITS | Encounter Summary ---
Author Organization [place] Address [address] [place] [address] Care Team Providers Care Peanut Butter Maker Name Role Phone Selma Good APRN CHIEF EXECUTIVE OR MANAGING DIRECTOR Primary Care Pro vider Vanda Guerrero MD Primary Care Provider [phone] Vanda Guerrero MD Unavailable [phone] Jeana-JdNoreen castro APRN, CNP Unavailable Jeana-JdNoreen castro APRN, CNP Unavailable JeanaRejiJdNoreen castro APRN CHIEF EXECUTIVE OR MANAGING DIRECTOR Primary Car e Provider Kalyan Galvan Unavailable Unavailable Lashae Trevino [facility] Unavailable [phone] Eduardo Sharma MD Unavailable Rios Monteiro MD Unavailable [phone] Marcelo Artis PA-C Unavailable [phone] Rodrigo ManC Unavailable [phone] Jeana-Noreen Miles APRN CHIEF EXECUTIVE OR MANAGING DIRECTOR Unavailable Sudha Greene NP Primary Care Provider Agatha NullM, Podiatry /Foot and Ankle Surgery Unavailable [facility] Unavailable Reason for Referral * Referral not Required - Closed Specialty Diagnoses / Procedures Referred By Rylie garcia Referred To Contact Diagnoses Upper back pain Selma Good APRN CHIEF EXECUTIVE OR MANAGING DIRECTOR [address] [facility] [place] [address] [facility] [address] [address] [place] [address] Phone: [phone] Referral ID Status Reason Start Date Expiration Date Visits Re quested Visits Authorized [id number] Closed 01/18/2010 01/18/2010 1 1 Comments Coverage of these services is subject to the terms and limitations of your health insurance plan. Please call member services at your health plan with any benefit or coverage questions. [facility] referral to [facility] (Katelyn Colorado M.D.) [phone]. Any CT, MRI or procedures ordered by your specialist must be performed at a [place] facility OR coordinated by your clinic's referral office at [phone]. If X-rays, CTs or MRIs have been [...] Team (Late st Contact Info) Description 01/17/2010 [facility] Medical Advice [facility] [address] [facility] [place] [address] Selma Good APRN CHIEF EXECUTIVE OR MANAGING DIRECTOR [address] [facility] [place] [address] Referral Social History Tobacco Use Types Packs/Day [...] CONSULT PLASTIC SURGERY (01/31/2010) Selma Good APRN CHIEF EXECUTIVE OR MANAGING DIRECTOR REFERRAL documented in this encounter Visit Diagnoses Diagnosis Upper back pain- Primary Pain in thoracic spine documented in this encounter Additional Health Concerns Infection Onset Date Last Indicated Resolved Time Rule Out COVID-19 08/25/2020 08/25/2020 08/26/2020 3:23 PM CDT Rule Out COVID-19 11/26/2022 11/26/2022 11/27/2022 3:38 PM CDT documented as of this encounter Care Teams Peanut Butter Maker Relationship Specialty Start Date End Date Selma Good APRN CHIEF EXECUTIVE OR MANAGING DIRECTOR [address] [facility] [place] [address] PCP - General 04/09/08 04/07/15 Vanda Guerrero MD [address] [place] [address] [place] [address] PCP - General Internal Medicine 04/08/15 01/08/19 Vanda Guerrero MD [address] [place] [address] [place] [address] PCP - Assigned PCP 07/24/16 06/15/18 Noreen Flores APRN CHIEF EXECUTIVE OR MANAGING DIRECTOR [address] [place] [address] [place] [address] PCP - Assigned PCP 06/16/18 08/13/18 Noreen Flores APRN CHIEF EXECUTIVE OR MANAGING DIRECTOR [address] [place] [address] [place] [address] PCP - General Nurse Practitioner 01/09/19 12/12/21 Sudha Greene NP [address] [address] PCP - General 11/01/22 Noreen Flores APRN CHIEF EXECUTIVE OR MANAGING DIRECTOR [address] [place] [address] [place] [address] Assigned PCP 06/16/18 05/26/22 Kalyan Galvan Personal Advocate & Liaison (PAL) 08/08/19 04/26/21 Lashae Trevino, [facility] [address] [place] [address] [place] [phone] Pharmacist Pharmacist 10/14/19 12/01/20 Eduardo Sharma MD [address] [place] [address] [place] [address] Assigned Sleep Provider 04/02/2005/07 [place] [address] [facility] 300 [place] [address] Assigned Musculoskeletal Provider 04/02/20 08/24/20 Marcelo Artis PA-C [address] [facility] 300 [place] [address] Assigned Musculoskeletal Provider 08/25/20 08/20/21 Rodrigo Man PA-C [address] [place] [address] [place] [address] Assigned Surgical Provider 08/25/20 11/27/20 Noreen Flores APRN CHIEF EXECUTIVE OR MANAGING DIRECTOR [address] [facility] [place] [address] Assigned PCP 08/05/22 03/16/23 Agatha Null DPM, Podiatry/Foot and Ankle Surgery [address] [place] [address] Assigned Musculoskeletal Provider 11/04/22 Clinic - [facility] [place] [address] [facility] [place] [address] Assigned PCP 07/05/23 documented as of this encounter
--- OUTSIDE RECORDS SUMMARY | 2023-11-02 07:10 | XMS_ITS | Encounter Summary ---
Author Organization [place] Address [address] [place] [address] Care Team Providers Care Machine Lacer Name Role Phone Selma Good APRN RADIOLOGY TRANSPORTER Primary Care Pro vider Vanda Guerrero MD Primary Care Provider [phone] Vanda Guerrero MD Unavailable [phone] Jeana-JdNoreen castro APRN, CNP Unavailable Jeana-JdNoreen castro APRN, CNP Unavailable JeanaRejiJdNoreen castro APRN, CNP Primary Car e Provider Kalyan Galvan Unavailable Unavailable Lashae Trevino [facility] Unavailable [phone] Eduardo Sharma MD Unavailable Rios Monteiro MD Unavailable [phone] Marcelo Artis PA-C Unavailable [phone] Rodrigo ManC Unavailable [phone] Jeana-Noreen Miles APRN RADIOLOGY TRANSPORTER Unavailable Sudha Greene NP Primary Care Provider Agatha NullM, Podiatry /Foot and Ankle Surgery Unavailable [facility] Unavailable Reason for Visit * Reason Onset Date Comments Medication Dosage Adjustment 08/18/2013 dec rease Metformin Encounter Details Date Type Department Care Team (Late st Contact Info) Description 08/18/2013 [facility] Medical Advice [facility] [address] [place] [address] [place] [phone] Selma Good APRN RADIOLOGY TRANSPORTER [facility] [place] [address] Medication Dosage Adjustment (decrease Met... Social History [...] RN - 08/18/2013 2:08 PM CDT See FIGMD message below. I updated the medication list [...] as of this encounter Care Teams Machine Lacer Relationship Specialty Start Date End Date Selma Good APRN RADIOLOGY TRANSPORTER [facility] [place] [address] PCP - General 04/09/08 04/07/15 Vanda Guerrero MD [address] [place] [address] [place] [address] PCP - General Internal Medicine 04/08/15 01/08/19 Vanda Guerrero MD [address] [place] [address] [place] [address] PCP - Assigned PCP 07/24/16 06/15/18 Noreen Flores, SEAN RADIOLOGY TRANSPORTER [address] [place] [address] [place] [address] PCP - Assigned PCP 06/16/18 08/13/18 Noreen Flores APRN RADIOLOGY TRANSPORTER [address] [place] [address] [place] [address] PCP - General Nurse Practitioner 01/09/19 12/12/21 Sudha Greene, [place] [address] [address] PCP - General 11/01/22 Noreen Flores, SEAN RADIOLOGY TRANSPORTER [address] [place] [address] [place] [address] Assigned PCP 06/16/18 05/26/22 Kalyan Galvan Personal Advocate & Liaison (PAL) 08/08/19 04/26/21 Lashae Trevino [facility] [place] [address] Pharmacist Pharmacist 10/14/19 12/01/20 Eduardo Sharma MD [address] [place] [address] [place] [address] Assigned Sleep Provider 04/02/2005/07 Rios Monteiro MD [address] [place] [address] Assigned Musculoskeletal Provider 04/02/20 08/24/20 Marcelo Artis PA-C [id number] [place] [address] Assigned Musculoskeletal Provider 08/25/20 08/20/21 Rodrigo Man PA-C [address] [address] Assigned Surgical Provider 08/25/20 11/27/20 Noreen Flores APRN RADIOLOGY TRANSPORTER [address] [place] [address] [place] [address] Assigned PCP 08/05/22 03/16/23 Agatha Null DPM, Podiatry/Foot and Ankle Surgery [address] [place] [address] 300 [place] [address] Assigned Musculoskeletal Provider 11/04/22 [facility] - [facility] [address] [place] [address] Assigned PCP 07/05/23 documented as of this encounter
--- OUTSIDE RECORDS SUMMARY | 2023-11-02 07:10 | XMS_ITS | Encounter Summary ---
Author Organization [place] Address [address] [place] [address] Care Team Providers Care Ceramic Tiler Name Role Phone Selma Good APRN COMMUNICATION EQUIPMENT REPAIRER Primary Care Pro vider Vanda Guerrero MD Primary Care Provider [phone] Vanda Guerrero MD Unavailable [phone] Jeana-JdNoreen castro APRN, CNP Unavailable Jeana-JdNoreen castro APRN, CNP Unavailable JeanaNoreen Garcia APRN COMMUNICATION EQUIPMENT REPAIRER Primary Car e Provider Kalyan Galvan Unavailable Unavailable Lashae Trevino [facility] Unavailable [phone] Eduardo Sharma MD Unavailable Rios Monteiro MD Unavailable [phone] Marcelo Artis PA-C Unavailable [phone] Rodrigo Man PA-C Unavailable [phone] Jeana-Noreen Miles APRN COMMUNICATION EQUIPMENT REPAIRER Unavailable Sudha Greene NP Primary Care Provider Agatha NullM, Podiatry /Foot and Ankle Surgery Unavailable [facility] Unavailable Encounter Details Date Type Department Care Team (Late st Contact Info) Description 04/24/2011 [facility] [place] [phone] Alejo Casas [...] as of this encounter Care Teams Ceramic Tiler Relationship Specialty Start Date End Date Selma Good APRN COMMUNICATION EQUIPMENT REPAIRER [address] [facility] [place] [address] PCP - General 04/09/08 04/07/15 Vanda Guerrero MD [facility] [place] [address] PCP - General Internal Medicine 04/08/15 01/08/19 Vanda Guerrero MD [address] [place] [address] [place] [address] PCP - Assigned PCP 07/24/16 06/15/18 Noreen Flores APRN COMMUNICATION EQUIPMENT REPAIRER [facility]5 [facility] [place] [address] PCP - Assigned PCP 06/16/18 08/13/18 Noreen Flores APRN COMMUNICATION EQUIPMENT REPAIRER [address] [place] [address] [place] [address] PCP - General Nurse Practitioner 01/09/19 12/12/21 Sudha Greene NP [address] [address] PCP - General 11/01/22 Noreen Flores APRN COMMUNICATION EQUIPMENT REPAIRER [address] [place] [address] [place] [address] Assigned PCP 06/16/18 05/26/22 Kalyan Galvan Personal Advocate & Liaison (PAL) 08/08/19 04/26/21 [facility] [address] [place] [address] [place] [address] Pharmacist Pharmacist 10/14/19 12/01/20 Eduardo Sharma MD [address] [place] [address] Assigned Sleep Provider 04/02/2005/07 [place] [address] [facility] 300 [place] [address] Assigned Musculoskeletal Provider 04/02/20 08/24/20 Marcelo Artis PA-C [address] [facility] [address] [place] [address] Assigned Musculoskeletal Provider 08/25/20 08/20/21 Rodrigo Man PA-C [address] [address] [place] [address] Assigned Surgical Provider 08/25/20 11/27/20 Noreen Flores APRN COMMUNICATION EQUIPMENT REPAIRER [address] [facility] [place] [address] Assigned PCP 08/05/22 03/16/23 Agatha Null DPM, Podiatry/Foot and Ankle Surgery [address] [place] [address] [place] [address] Assigned Musculoskeletal Provider 11/04/22 [facility] [place] [place] [facility] [address] [facility] [place] [address] Assigned PCP 07/05/23 documented as of this encounter
--- OUTSIDE RECORDS SUMMARY | 2023-11-02 07:10 | XMS_ITS | Encounter Summary ---
Author Organization [place] Address [address] [place] [address] Care Team Providers Care Wire Threader Name Role Phone Selma Good APRN TROUSSEAU CONSULTANT Primary Care Pro vider Vanda Guerrero MD Primary Care Provider [phone] Vanda Guerrero MD Unavailable [phone] Jeana-JdNoreen castro APRN, CNP Unavailable Jeana-JdNoreen castro APRN, CNP Unavailable JeanaNoreen Garcia APRN TROUSSEAU CONSULTANT Primary Car e Provider Kalyan Galvan Unavailable Unavailable Lashae Trevino [facility] Unavailable [phone] Eduardo Sharma MD Unavailable Rios Monteiro MD Unavailable [phone] Marcelo Artis PA-C Unavailable [phone] Rodrigo Man PA-C Unavailable [phone] Jeana-Noreen Miles APRN TROUSSEAU CONSULTANT Unavailable Sudha Greene NP Primary Care Provider Agatha NullM, Podiatry /Foot and Ankle Surgery Unavailable [facility] Unavailable Encounter Details Date Type Department Care Team (Late st Contact Info) Description 12/14/2009 [facility] [place] [phone] Alejo Casas Social [...] as of this encounter Care Teams Wire Threader Relationship Specialty Start Date End Date Selma Good APRN TROUSSEAU CONSULTANT [address] [facility] [place] [address] PCP - General 04/09/08 04/07/15 Vanda Guerrero MD [facility] [place] [address] PCP - General Internal Medicine 04/08/15 01/08/19 Vanda Guerrero MD [address] [place] [address] [place] [address] PCP - Assigned PCP 07/24/16 06/15/18 Noreen Flores APRN TROUSSEAU CONSULTANT [facility] [place] [address] PCP - Assigned PCP 06/16/18 08/13/18 Noreen Flores APRN TROUSSEAU CONSULTANT [address] [place] [address] [place] [address] PCP - General Nurse Practitioner 01/09/19 12/12/21 Sudha Greene NP [address] [address] PCP - General 11/01/22 Noreen Flores APRN TROUSSEAU CONSULTANT [address] [place] [address] [place] [address] Assigned PCP 06/16/18 05/26/22 Kalyan Galvan Personal Advocate & Liaison (PAL) 08/08/19 04/26/21 [facility] [address] [place] [address] [place] [address] Pharmacist Pharmacist 10/14/19 12/01/20 Eduardo Sharma MD [address] [place] [address] Assigned Sleep Provider 04/02/2005/07 [place] [address] [facility] 300 [place] [address] Assigned Musculoskeletal Provider 04/02/20 08/24/20 Marcelo Artis PA-C [address] [facility] [address] [place] [address] Assigned Musculoskeletal Provider 08/25/20 08/20/21 Rodrigo Man PA-C [address] [place] [address] [place] [address] Assigned Surgical Provider 08/25/20 11/27/20 Noreen Flores APRN TROUSSEAU CONSULTANT [address] [facility] [place] [address] Assigned PCP 08/05/22 03/16/23 Agatha Null DPM, Podiatry/Foot and Ankle Surgery [address] [place] [address] [place] [address] Assigned Musculoskeletal Provider 11/04/22 [facility] 3[address] [facility] [place] [address] Assigned PCP 07/05/23 documented as of this encounter
--- OUTSIDE RECORDS SUMMARY | 2023-11-02 07:10 | XMS_ITS | Encounter Summary ---
Author Organization [place] Address [address] [place] [address] Care Team Providers Care Bid Clerk Name Role Phone Selma Good APRN BODY CLEANER Primary Care Pro vider Vanda Guerrero MD Primary Care Provider [phone] Vanda Guerrero MD Unavailable [phone] Jeana-JdNoreen castro APRN, CNP Unavailable Jeana-JdNoreen castro APRN, CNP Unavailable Ejana-JdNoreen castro APRN, CNP Primary Car e Provider Kalyan Galvan Unavailable Unavailable Lashae Trevino [facility] Unavailable [phone] Eduardo Sharma MD Unavailable Rios Monteiro MD Unavailable [phone] Marcelo Artis PA-C Unavailable [phone] Rodrigo ManC Unavailable [phone] Jeana-Noreen Miles APRN BODY CLEANER Unavailable Sudha Greene NP Primary Care Provider Agatha NullM, Podiatry /Foot and Ankle Surgery Unavailable [facility] Unavailable Reason for Visit * Reason Onset Date Comments Orders 01/17/2010 mammo and U/Ss Encounter Details Date Type Department Care Team (Late st Contact Info) Description 01/17/2010 [facility] Medical Advice [facility] [address] [place] [address] [place] [phone] Selma Good APRN BODY CLEANER [address] [facility] [place] [address] Orders (mammo and U/Ss) Social History Tobacco [...] documented as of this encounter Care Teams Bid Clerk Relationship Specialty Start Date End Date Selma Good APRN BODY CLEANER [address] [place] [address] [place] [address] PCP - General 04/09/08 04/07/15 Vanda Guerrero MD [address] [place] [address] [place] [address] PCP - General Internal Medicine 04/08/15 01/08/19 Vanda Guerrero MD [address] [place] [address] [place] [address] PCP - Assigned PCP 07/24/16 06/15/18 Noreen Flores APRN BODY CLEANER [address] [place] [address] [place] [address] PCP - Assigned PCP 06/16/18 08/13/18 Noreen Flores APRN BODY CLEANER [address] [place] [address] [place] [address] PCP - General Nurse Practitioner 01/09/19 12/12/21 Sudha Greene NP [address] [address] PCP - General 11/01/22 Noreen Flores APRN BODY CLEANER [address] [place] [address] [place] [address] Assigned PCP 06/16/18 05/26/22 Kalyan Galvan Personal Advocate & Liaison (PAL) 08/08/19 04/26/21 [facility] [address] [place] [address] [place] [address] Pharmacist Pharmacist 10/14/19 12/01/20 Eduardo Sharma MD [address] [address] Assigned Sleep Provider 04/02/2005/07 Rios Monteiro MD [address] [place] [address] Assigned Musculoskeletal Provider 04/02/20 08/24/20 Marcelo Artis, PA-C [address] [place] [address] 300 [place] [address] Assigned Musculoskeletal Provider 08/25/20 08/20/21 Rodrigo Man PA-C [address] [facility] [address] [place] [address] Assigned Surgical Provider 08/25/20 11/27/20 Noreen Flores APRN BODY CLEANER [address] [facility] [place] [address] Assigned PCP 08/05/22 03/16/23 Agatha Null DPM, Podiatry/Foot and Ankle Surgery [address] [place] [address] Assigned Musculoskeletal Provider 11/04/22 [facility] - [facility] [address] [facility] [address] [place] [phone] Assigned PCP 07/05/23 documented as of this encounter
--- OUTSIDE RECORDS SUMMARY | 2023-11-02 07:10 | XMS_ITS | Encounter Summary ---
Author Organization [place] Address [address] [place] [address] Care Team Providers Care Supervisor Continuous Weld Pipe Mill Name Role Phone Selma Good APRN CHIEF VENDOR QUALITY Primary Care Pro vider Vanda Guerrero MD Primary Care Provider [phone] Vanda Guerrero MD Unavailable [phone] Jeana-JdNoreen castro APRN, CNP Unavailable Jeana-JdNoreen castro APRN, CNP Unavailable JeanaRejiJdNoreen castro APRN, CNP Primary Car e Provider Kalyan Galvan Unavailable Unavailable Lashae Trevino [facility] Unavailable [phone] Eduardo Sharma MD Unavailable Rios Monteiro MD Unavailable [phone] Marcelo Artis PA-C Unavailable [phone] Rodrigo ManC Unavailable [phone] Jeana-Noreen Miles APRN CHIEF VENDOR QUALITY Unavailable Sudha Greene NP Primary Care Provider Agatha NullM, Podiatry /Foot and Ankle Surgery Unavailable [facility] Unavailable Reason for Visit * Reason Onset Date Comments Medication Question 11/23/2011 topamax Encounter Details Date Type Department Care Team (Late st Contact Info) Description 11/23/2011 [facility] [address] [place] [address] [place] [phone] Selma Good APRN CHIEF VENDOR QUALITY [address] [facility] [place] [address] Medication Question (topamax) Social History Tobacco Use [...] as of this encounter Care Teams Supervisor Continuous Weld Pipe Mill Relationship Specialty Start Date End Date Selma Good APRN CHIEF VENDOR QUALITY [address] [place] [address] [place] [address] PCP - General 04/09/08 04/07/15 Vanda Guerrero MD [address] [place] [address] [place] [address] PCP - General Internal Medicine 04/08/15 01/08/19 Vanda Guerrero MD [address] [place] [address] [place] [address] PCP - Assigned PCP 07/24/16 06/15/18 Noreen Flores APRN CHIEF VENDOR QUALITY [address] [place] [address] [place] [address] PCP - Assigned PCP 06/16/18 08/13/18 Noreen Flores APRN CHIEF VENDOR QUALITY [address] [place] [address] [place] [address] PCP - General Nurse Practitioner 01/09/19 12/12/21 Sudha Greene NP [address] [address] PCP - General 11/01/22 Noreen Flores APRN CHIEF VENDOR QUALITY [address] [place] [address] [place] [address] Assigned PCP 06/16/18 05/26/22 Kalyan Galvan Personal Advocate & Liaison (PAL) 08/08/19 04/26/21 [facility] [address] [place] [address] [place] [address] Pharmacist Pharmacist 10/14/19 12/01/20 Eduardo Sharma MD [address] [address] Assigned Sleep Provider 04/02/2005/07 Rios Monteiro MD [address] [place] [address] Assigned Musculoskeletal Provider 04/02/20 08/24/20 Marcelo Artis, PA-C [address] [place] [address] 300 [place] [address] Assigned Musculoskeletal Provider 08/25/20 08/20/21 Rodrigo Man PA-C [address] [facility] [address] [place] [address] Assigned Surgical Provider 08/25/20 11/27/20 Noreen Flores APRN CHIEF VENDOR QUALITY 3305 [facility] [place] [address] Assigned PCP 08/05/22 03/16/23 Agatha Null DPM, Podiatry/Foot and Ankle Surgery [address] [address] [facility] 300 [place] [address] Assigned Musculoskeletal Provider 11/04/22 [facility] - [facility] 3305 [facility] [place] [id number] Assigned PCP 07/05/23 documented as of this encounter
--- OUTSIDE RECORDS SUMMARY | 2023-11-02 07:11 | XMS_ITS | Encounter Summary ---
Author Organization [facility] Address [address] [place] [address] Care Team Providers Care Entry Level Paralegal Name Role Phone Selma Good APRN PROBATION MANAGER Primary Care Pro vider Vanda Guerrero MD Primary Care Provider [phone] Vanda Guerrero MD Unavailable [phone] Jeana-JdNoreen castro APRN, CNP Unavailable Jeana-JdNoreen castro APRN, CNP Unavailable JeanaNoreen Garcia APRN, CNP Primary Car e Provider Kalyan Galvan Unavailable Unavailable Lashae Trevino [facility] Unavailable [phone] Eduardo Sharma MD Unavailable Rios Monteiro MD Unavailable [phone] Marcelo Artis PA-C Unavailable [phone] Rodrigo ManC Unavailable [phone] Jeana-Noreen Miles APRN PROBATION MANAGER Unavailable Sudha Greene NP Primary Care Provider [phone] Agatha NullM, Podiatry /Foot and Ankle Surgery Unavailable [facility] Unavailable Reason for Visit * Reason Onset Date Comments Patient Request 07/01/2009 Encounter Details Date Type Department Care Team (Late st Contact Info) Description 07/01/2009 [facility] [address] [place] [address] DAV[place]ring[place] [phone] Selma Good APRN PROBATION MANAGER [address] [place] [address] [place] [address] Patient Request Social History Tobacco Use Types [...] of this encounter Care Teams Entry Level Paralegal Relationship Specialty Start Date End Date Selma Good APRN PROBATION MANAGER [address] [place] [address] [place] [address] PCP - General 04/09/08 04/07/15 Vanda Guerrero MD [address] [place] [address] [place] [address] PCP - General Internal Medicine 04/08/15 01/08/19 Vanda Guerrero MD [address] [place] [address] [place] [address] PCP - Assigned PCP 07/24/16 06/15/18 Noreen Flores APRN PROBATION MANAGER [address] [facility] [place] [address] PCP - Assigned PCP 06/16/18 08/13/18 Noreen Flores APRN PROBATION MANAGER [address] [place] [address] [place] [address] PCP - General Nurse Practitioner 01/09/19 12/12/21 Sudha Greene, MAURICIO [address] [address] PCP - General 11/01/22 Noreen Flores APRN PROBATION MANAGER [address] [place] [address] [place] [address] Assigned PCP 06/16/18 05/26/22 Kalyan Galvan Personal Advocate & Liaison (PAL) 08/08/19 04/26/21 Lashae Trevino, [facility] [address] [place] [address] [place] [phone] Pharmacist Pharmacist 10/14/19 12/01/20 Eduardo Sharma MD [address] [place] [place] 249015 Assigned Sleep Provider 04/02/2005/07 [place] [address] [facility] [address] [place], [place] [id number] Assigned Musculoskeletal Provider 04/02/20 08/24/20 Marcelo Artis PA-C 314[address] [facility] [address] [place], [place] [id number] Assigned Musculoskeletal Provider 08/25/20 08/20/21 Rodrigo Man PA-C [address] [place] [address] Assigned Surgical Provider 08/25/20 11/27/20 Noreen Flores APRN PROBATION MANAGER [address] [facility] [place] [address] Assigned PCP 08/05/22 03/16/23 Agatha Null DPM, Podiatry/Foot and Ankle Surgery [address] [place] [address] Assigned Musculoskeletal Provider 11/04/22 Clinic - Nita Pringle [facility] [address] [facility] DAVID ORDOÑEZ [phone] Assigned PCP 07/05/23 documented as of this encounter
--- OUTSIDE RECORDS SUMMARY | 2023-11-02 07:11 | XMS_ITS | Encounter Summary ---
Author Organization [facility] Address [address] [address] Care Team Providers Care Shake Backboard Notcher Name Role Phone Unassigned, Provider Primary Care Provider Unava ilable Encounter Details Date Type Department Care Team (Latest Contact Info) Description 07/26/2004 [facility] Gavin Justice MD [address] [place] [address] Social History Tobacco Use Types Packs/Day Years [...] * Jerome Garg - 07/26/2004 12:00 AM DIRECTOR TOXICOLOGY DATE OF SURGERY: 07/26/2004 STAFF SURGEON: Gavin [...] nerve impingement. Therefore, she is referred to [facility] pain clinic for evaluation for epidural [...] Justice MD Transcribed: 07/26/2004 14:26:15 Doc #: [id number] cc: Jose Colin, , Primary/Referring DO NOT SIGN UNLESS PRESENT FOR PROCEDURE I attest that I was present for and participated in the ma portions of this procedure(s) in compliance with the Health Care Financing Administration Teaching Physician Guidelines. Signed Date Regions Staff Physician 1 Page 2 Patient Name: PADMINI CHOI Visit Date: 07/26/2004 OUTPATIENT OPERATIVE REPORT CONFIDENTIAL MEDICAL RECORD [facility] [address] [place] [address] Page 1 Patient: PADMINI CHOI [id number] Date [facility] : 1965 Visit Date: 07/26/2004 OUTPATIENT OPERATIVE REPORT documented in this encounter Plan of Treatment Not on file documented as of this encounter Visit Diagnoses Not on filedocumented in this encounter Care Teams Shake Backboard Notcher Relationship Specialty Start Date End Date Unassigned, Provider [address] [place] [address] PCP - General 09/18/08 documented as of this encounter
--- OUTSIDE RECORDS SUMMARY | 2023-11-02 07:11 | XMS_ITS | Encounter Summary ---
Author Organization [facility] Address [address] [place] [address] Care Team Providers Care Identity Management Consultant Name Role Phone Selma Good APRN ENAMEL PULVERIZER Primary Care Pro vider Vanda Guerrero MD Primary Care Provider [phone] Vanda Guerrero MD Unavailable [phone] Jeana-JdNoreen castro APRN, CNP Unavailable Jeana-JdNoreen castro APRN, CNP Unavailable JeanaNoreen Garcia APRN ENAMEL PULVERIZER Primary Car e Provider Kalyan Galvan Unavailable Unavailable Lashae Trevion [facility] Unavailable [phone] Eduardo Sharma MD Unavailable Rios Monteiro MD Unavailable [phone] Marcelo Artis PA-C Unavailable [phone] Rodrigo Man PA-C Unavailable [phone] Jeana-Noreen Miles APRN ENAMEL PULVERIZER Unavailable Sudha Greene NP Primary Care Provider Agatha NullM, Podiatry /Foot and Ankle Surgery Unavailable [facility] [...] documented as of this encounter Care Teams Identity Management Consultant Relationship Specialty Start Date End Date Selma Good APRN ENAMEL PULVERIZER [address] [place] [address] [place] [address] PCP - General 04/09/08 04/07/15 Vanda Guerrero MD [address] [place] [address] [place] [address] PCP - General Internal Medicine 04/08/15 01/08/19 Vanda Guerrero MD [address] [place] [address] [place] [address] PCP - Assigned PCP 07/24/16 06/15/18 Noreen Flores APRN ENAMEL PULVERIZER [address] [place] [address] [place] [address] PCP - Assigned PCP 06/16/18 08/13/18 Noreen Flores APRN ENAMEL PULVERIZER [address] [facility] [place] [address] PCP - General Nurse Practitioner 01/09/19 12/12/21 Sudha Greene, MAURICIO [address] [address] PCP - General 11/01/22 Noreen Flores APRN ENAMEL PULVERIZER [address] [place] [address] [place] [address] Assigned PCP 06/16/18 05/26/22 Kalyan Galvan Personal Advocate & Liaison (PAL) 08/08/19 04/26/21 Lashae Trevino, [facility] [address] [place] [address] [place] [address] Pharmacist Pharmacist 10/14/19 12/01/20 Eduardo Sharma MD [address] [place] [id number] Assigned Sleep Provider 04/02/2005/07 [place] [address] [facility] [address] [place] [address] Assigned Musculoskeletal Provider 04/02/20 08/24/20 Marcelo Artis PA-C 197[address] [facility] [address] [place], [place] [address]187 Assigned Musculoskeletal Provider 08/25/20 08/20/21 Rodrigo Man PA-C [address] [place] [address] [place] [id number] Assigned Surgical Provider 08/25/20 11/27/20 Noreen Flores APRN ENAMEL PULVERIZER [address] [facility] [place] [address] Assigned PCP 08/05/22 03/16/23 Agatha Null DPM, Podiatry/Foot and Ankle Surgery [address] [place] [address] Assigned Musculoskeletal Provider 11/04/22 [facility] [address] [facility] DAV[place] PRING[place] [phone] Assigned PCP 07/05/23 documented as of this encounter
--- OUTSIDE RECORDS SUMMARY | 2023-11-02 07:11 | XMS_ITS | Clinical Summary ---
Author Organization [facility] Address [address] [place] [address] Care Team Providers Care Order Dispatcher Chief Name Role Phone Unassigned, Provider Primary Care Provider Unava ilable Source Comments You are receiving this document as you are listed as the primary care provider,follow-up provider, or the patient has been referred to you for consultation.This is in compliance with the Medicare and[facility] Cent[facility]aid EHR Incentive Program,which states Providers who transition their patient to another setting of careor provider of care or refers their patient to another provider of care shouldprovide summary care record for each transition of care or referral. [employer] Allergies Active Allergy Reactions Criticality Noted Date [...] 03/09/2011,04/08/2010, 8 Influenza IIV4 (Quadrivalent ) 0.5mL (36494) 06/12/2017,03/23/2016,04/08/2015, 013 PPSV23 (Pneumovax) 10/06/2014 Pfizer Monovalent [...] Comments Blood Pressure 120/62 05/25/2021 11:09 AM RADIO DISPATCHER Pulse 59 05/25/2021 11:09 AM RADIO DISPATCHER Temperature 36.7 ??C (98.1 ??F) 05/25/2021 1 1:09 AM RADIO DISPATCHER Respiratory Rate 16 08/23/2007 1:13 PM CDT Oxygen Saturation 97% 08/23/2007 1:13 PM CDT Inhaled Oxygen Concentration - - Weight 78.8 kg (173 lb 12.8 oz) 021 11:09 AM RADIO DISPATCHER Height 160 cm (5' 3) 08/23/2007 1:13 [...] topic Medical Devices Implanted Type Area Manager Financial Systems Device Identifier Shelf Expiration Date Model / Serial / Lot Kit Infuse Bone Graft Sm - [id number] Implanted:Qty : 1 on 04/15/2007 at [facility] Left: BACK Sofamor [employer] [id number] / / [id number] Bone Canc Crushed 60cc - [id number] Implanted:Qty : 1 on 04/15/2007 at [facility] Left: BACK Howell [id number] / OTS [id number] / Device Cage Ray Thrd 12x26 - [id number] Implanted:Qty : 2 on 04/15/2007 at [facility] DEVICE Left: BACK Henna 7-1226 / / [id number] Cage Ray [id number] - [id number] Implanted:Qty : 1 on 04/15/2007 at [facility] Left: BACK Howell 05/11/2008 7-1426 / / [id number] Procedures Procedure Name Priority Date/Time Associated Diagnosis [...] 8:33 AM CDT) Cholesterol 188 <200 mg/dl [facility] Triglyceride 95 <200 mg/dl [facility] HDL 46 >35 mg/dl [facility] LDL, Calc. 123 mg/dl [facility] Hours Fasting 12 hours [facility] 10/07/2005 8:33 AM CDT 10/07/2005 8:34 AM CDT Yun Flynn MD LAB_1 Performing Organization Address City/State/[facility] Co de Phone Number [facility] [address] [place] [phone] * PAP TEST, ROUTINE (10/02/2005 12:00 AM CDT) Cytology, Pap (NOTE) Sales Leader Cytology Report Patient Name: MEGAN CHOI Taken: [...] and less commonly, endometrial/uterin e abnormalities. ? [facility]/10/13/2005 Electronically Signed Out By ? Kelly Elmore MD ([id number]) Rakel Valle, ??CT (ASCP) ?Pap Smear History ?Date of Last Menstrual Period: ? 09/22/05 ?Contraceptive History: ?Not Stated/Unknown ?Other Clinical Conditions: ?LAST PAP: N/A HPV reflex testing requested with interpretation of ASCUS ? [facility] 10/02/2005 10/06/2005 9:5 8 AM CDT Yun Flynn MD LAB_1 [place], [place] [phone] * MAMMOGRAM, SCREENING (05/15/2003) Anatomical Region Laterality Modality Breast Other Narrative Transcriptions Dusty Gonsalves - 05/15/2003 12:00 AM CSTCLINICAL DATA: Screening. EXAMINATION: Bilateral mammogram, 05/15/03. ACR BIRADS CATEGORY 1 - NEGATIVE MAMMOGRAM. FINDINGS: Nothing for malignancy. Dusty Gonsalves MD 10:42 A cc: AUDREY Moffett Radiology SP Blank Perez PRODUCT SAFETY SPECIALIST, FILTERING MACHINE TENDER HELPER RAD_BI from Last 3 Months or Most Recently Relevant to Health Maintenance Advance Directives * Full Code (Latest Code Status on File) Date Activated Date Inactivated Comments 04/15/2007 8:03 AM 04/19/2007 8:53 PM Care Teams Order Dispatcher Chief Relationship Specialty Start Date End Date Unassigned, Provider [address] [place] [address] PCP - General 09/18/08
--- OUTSIDE RECORDS SUMMARY | 2023-11-02 07:11 | XMS_ITS | Encounter Summary ---
Author Organization [facility] Address [address] [place] [address] Care Team Providers Care Director Of Accounts Payable Name Role Phone Unassigned, Provider Primary Care Provider Unava ilable Encounter Details Date Type Department Care Team (Late st Contact Info) Description 08/23/2004 [facility] [address] [place] [address] Gavin Justice MD [address] [place] [address] [id number] Social History Tobacco Use Types Packs/Day Years [...] * Jerome Garg - 08/23/2004 12:00 AM SYSTEMS PROGRAMMER ANALYST DATE OF SURGERY: August 23, 2004. STAFF [...] Justice MD Transcribed: 08/24/2004 07:37:56 Doc #: [id number] cc: Jose Colin, DO, Referring DO NOT SIGN UNLESS PRESENT FOR PROCEDURE I attest that I was present for and participated in the ma portions of this procedure(s) in compliance with the Health Care Financing Administration Teaching Physician Guidelines. Signed Date Regions Staff Physician 1 Page 2 Patient Name: PADMINI CHOI Visit Date: 08/23/2004 OUTPATIENT OPERATIVE REPORT CONFIDENTIAL MEDICAL RECORD [address] [address] Page 1 Patient: PADMINI CHOI Location: [facility] N: [id number] Date of : 1965 Visit Date: 08/23/2004 OUTPATIENT OPERATIVE REPORT documented in this encounter Plan of Treatment Not on file documented as of this encounter Visit Diagnoses Not on filedocumented in this encounter Care Teams Director Of Accounts Payable Relationship Specialty Start Date End Date Unassigned, Provider [address] [place] [address] PCP - General 09/18/08 documented as of this encounter
--- OUTSIDE RECORDS SUMMARY | 2023-11-02 07:11 | XMS_ITS | Encounter Summary ---
Author Organization [facility] Address [address] [place] [address] Care Team Providers Care Chess Instructor Name Role Phone Selma Good APRN MEDIA ASSISTANT Primary Care Pro vider Vanda Guerrero MD Primary Care Provider [phone] Vanda Guerrero MD Unavailable [phone] Jeana-JdNoreen castro APRN, CNP Unavailable Jeana-JdNoreen castro APRN, CNP Unavailable JeanaNoreen Garcia APRN MEDIA ASSISTANT Primary Car e Provider Kaylan Galvan Unavailable Unavailable Lashae Trevino [facility] Unavailable [phone] Eduardo Sharma MD Unavailable Rios Monteiro MD Unavailable [phone] Marcelo Artis PA-C Unavailable [phone] Rodrigo Man PA-C Unavailable [phone] Jeana-Noreen Miles APRN MEDIA ASSISTANT Unavailable Sudha Greene NP Primary Care Provider Agatha NullM, Podiatry /Foot and Ankle Surgery Unavailable [facility] Unavailable Encounter Details Date Type [...] documented as of this encounter Care Teams Chess Instructor Relationship Specialty Start Date End Date Selma Good APRN MEDIA ASSISTANT [address] [place] [address] [place] [address] PCP - General 04/09/08 04/07/15 Vanda Guerrero MD [address] [place] [address] [place] [address] PCP - General Internal Medicine 04/08/15 01/08/19 Vanda Guerrero MD [address] [place] [address] [place] [address] PCP - Assigned PCP 07/24/16 06/15/18 Noreen Flores APRN MEDIA ASSISTANT [address] [place] [address] [place] [address] PCP - Assigned PCP 06/16/18 08/13/18 Noreen Flores APRN MEDIA ASSISTANT [address] [place] [address] [place] [address] PCP - General Nurse Practitioner 01/09/19 12/12/21 Sudha Greene NP [address] [address] PCP - General 11/01/22 Noreen Flores APRN MEDIA ASSISTANT [address] [place] [address] [place] [address] Assigned PCP 06/16/18 05/26/22 Kalyan Galvan Personal Advocate & Liaison (PAL) 08/08/19 04/26/21 Lashae Trevino, [facility] [address] [facility] [place] [address] Pharmacist Pharmacist 10/14/19 12/01/20 Eduardo Sharma MD [address] [place] [id number] Assigned Sleep Provider 04/02/2005/07 [place] [address] [facility] [address] [place] [address] Assigned Musculoskeletal Provider 04/02/20 08/24/20 Marcelo Artis PA-C [address] [place] [address] Assigned Musculoskeletal Provider 08/25/20 08/20/21 Rodrigo Man PA-C [address] [place] [address] Assigned Surgical Provider 08/25/20 11/27/20 Noreen Flores APRN MEDIA ASSISTANT [address] [facility] DAV[place] [address] Assigned PCP 08/05/22 03/16/23 Agatha Null DPM, Podiatry/Foot and Ankle Surgery [address] [place] [address] Assigned Musculoskeletal Provider 11/04/22 [facility] [address] [facility] DAVID PRINGLE [id number] Assigned PCP 07/05/23 documented as of this encounter
--- OUTSIDE RECORDS SUMMARY | 2023-11-02 07:11 | XMS_ITS | Encounter Summary ---
Author Organization [facility] Address [address] [place] [address] Care Team Providers Care Auditing Coder Name Role Phone Selma Good APRN ELEMENTARY INSTRUCTIONAL COACH Primary Care Pro vider Vanda Guerrero MD Primary Care Provider [phone] Vanda Guerrero MD Unavailable [phone] Jeana-JdNoreen castro APRN, CNP Unavailable Jeana-JdNoreen castro APRN, CNP Unavailable JeanaNoreen Garcia APRN ELEMENTARY INSTRUCTIONAL COACH Primary Car e Provider Kalyan Galvan Unavailable Unavailable Lashae Trevino [facility] Unavailable [phone] Eduardo Sharma MD Unavailable Rios Monteiro MD Unavailable [phone] Marcelo Artis PA-C Unavailable [phone] Rodrigo Man PA-C Unavailable [phone] Jeana-Noreen Miles APRN ELEMENTARY INSTRUCTIONAL COACH Unavailable Sudha Greene NP Primary Care Provider Agatha NullM, Podiatry /Foot and Ankle Surgery Unavailable [facility] Unavailable Encounter Details [...] as of this encounter Care Teams Auditing Coder Relationship Specialty Start Date End Date Selma Good APRN ELEMENTARY INSTRUCTIONAL COACH [address] [place] [address] DAV[place] [address] PCP - General 04/09/08 04/07/15 Vanda Guerrero MD [address] [place] [address] [place] [address] PCP - General Internal Medicine 04/08/15 01/08/19 Vanda Guerrero MD [address] [place] [address] [place] [address] PCP - Assigned PCP 07/24/16 06/15/18 Noreen Flores APRN ELEMENTARY INSTRUCTIONAL COACH [address] [place] [address] [place] [address] PCP - Assigned PCP 06/16/18 08/13/18 Noreen Flores APRN ELEMENTARY INSTRUCTIONAL COACH [address] [place] [address] [place] [address] PCP - General Nurse Practitioner 01/09/19 12/12/21 Sudha Greene NP [address] [address] PCP - General 11/01/22 Noreen Flores APRN ELEMENTARY INSTRUCTIONAL COACH [address] [place] [address] [place] [address] Assigned PCP 06/16/18 05/26/22 Kalyan Galvan Personal Advocate & Liaison (PAL) 08/08/19 04/26/21 Lashae Trevino, [facility] [address] [facility] [place] [address] Pharmacist Pharmacist 10/14/19 12/01/20 Eduardo Sharma MD [address] [place] [id number] Assigned Sleep Provider 04/02/2005/07 [place] [address] [facility] [address] [place] [address] Assigned Musculoskeletal Provider 04/02/20 08/24/20 Marcelo Artis PA-C [address] [place] [address] Assigned Musculoskeletal Provider 08/25/20 08/20/21 Rodrigo Man PA-C [address] [place] [address] Assigned Surgical Provider 08/25/20 11/27/20 Noreen Flores APRN ELEMENTARY INSTRUCTIONAL COACH [address] [facility] [place] [address] Assigned PCP 08/05/22 03/16/23 Agatha Null DPM, Podiatry/Foot and Ankle Surgery [address] [place] [address] Assigned Musculoskeletal Provider 11/04/22 [facility] [address] [facility] DAV[place] [phone] Assigned PCP 07/05/23 documented as of this encounter
--- OUTSIDE RECORDS SUMMARY | 2023-11-02 07:11 | XMS_ITS | Encounter Summary ---
Author Organization [facility] Address [address] [place] [address] Care Team Providers Care Engine Pilot Name Role Phone Selma Good APRN TEST DESKMAN Primary Care Pro vider Vanda Guerrero MD Primary Care Provider [phone] Vanda Guerrero MD Unavailable [phone] Jeana-JdNoreen castro APRN, CNP Unavailable Jeana-JdNoreen castro APRN, CNP Unavailable JeanaRejiJdNoreen castro APRN TEST DESKMAN Primary Car e Provider Kalyan Galvan Unavailable Unavailable Lashae Trevino [facility] Unavailable [phone] Eduardo Sharma MD Unavailable Rios Monteiro MD Unavailable [phone] Marcelo Artis PA-C Unavailable [phone] Rodrigo ManC Unavailable [phone] Jeana-Noreen Miles APRN TEST DESKMAN Unavailable Sudha Greene NP Primary Care Provider Agatha NullM, Podiatry /Foot and Ankle Surgery Unavailable [facility] Unavailable Reason for Referral * Referral not Required - Closed Specialty Diagnoses / Procedures Referred By Rylie t Referred To Contact Diagnoses Migraine headaches Selma Good APRN TEST DESKMAN [address] [facility] [place] [address] [facility] [address] [place] [address] Referral ID Status Reason Start Date Expiration Date Visits Re quested Visits Authorized [id number] Closed 09/18/2008 06/10/2011 1 1 Comments Coverage of these services is subject to the terms and limitations of your health insurance plan. Please call member services at your health plan with any benefit or coverage questions. [facility] referral to [facility] at [phone]. . Any CT, MRI or procedures ordered by your specialist must be performed at a [facility] facility OR coordinated by your clinic's referral office at [phone]. If X-rays, CTs or MRIs have been performed, please contact the facility where they were done, to arrange for cloth mercerizing supervisor prior to your scheduled appointment. Please bring this referral request to your appointment and present it to your specialist. Reason for Visit * Reason Onset Date Comments Medication Request 09/17/2008 migraine med Encounter Details Date Type Department Care Team (Late st Contact Info) Description 09/17/2008 [facility] Medical Advice [facility] [address] [facility] [place] [phone] Selma Good APRN TEST DESKMAN [address] [facility] [place] [address] Medication Request (migraine med) Social History Tobacco [...] to patient with phone number for [facility]. Ivette Allan M.A. * Telephone Encounter - Selma Good - 09/18/2008 8:18 AM CDT It appears in my note from when I saw her, I recommended referral to neuro, which she declined at that time. It appears imitrex 'knocked her out.' I would recommend [facility]. documented in this encounter Plan of Treatment Not on file documented as of this encounter Procedures Procedure Name Priority Date/Time Associated Diagnosis Comments ZZ CONSULT NEUROLOGY Routine 11/15/2010 Migraine headaches documented in this encounter Results * CONSULT NEUROLOGY (11/15/2010) Selma Good ENGLISH TUTOR TEST DESKMAN REFERRAL documented in this encounter Visit Diagnoses Diagnosis Migraine headaches- Primary Migraine, unspecified, without mention of intractable migraine without mention of status migrainosus documented in this encounter Additional Health Concerns Infection Onset Date Last Indicated Resolved Time Rule Out COVID-19 08/25/2020 08/25/2020 08/26/2020 3:23 PM CDT Rule Out COVID-19 11/26/2022 11/26/2022 11/27/2022 3:38 PM CDT documented as of this encounter Care Teams Engine Pilot Relationship Specialty Start Date End Date Selma Good ENGLISH TUTOR TEST DESKMAN [address] [facility] [place] [address] PCP - General 04/09/08 04/07/15 Vanda Guerrero MD [address] [facility] [place] [address] PCP - General Internal Medicine 04/08/15 01/08/19 Vanda Guerrero MD [address] [place] [address] [place] [address] PCP - Assigned PCP 07/24/16 06/15/18 Noreen Flores APRN TEST DESKMAN [address] [place] [address] [place] [address] PCP - Assigned PCP 06/16/18 08/13/18 Noreen Flores APRN TEST DESKMAN [address] [place] [address] [place] [address] PCP - General Nurse Practitioner 01/09/19 12/12/21 Sudha Greene, MAURICIO [address] [address] PCP - General 11/01/22 Noreen Flores APRN TEST DESKMAN [address] [place] [address] [place] [address] Assigned PCP 06/16/18 05/26/22 Kalyan Galvan Personal Advocate & Liaison (PAL) 08/08/19 04/26/21 [facility] [place] [address] Pharmacist Pharmacist 10/14/19 12/01/20 Eduardo Sharma MD [address] [place] [address] [place] [address] Assigned Sleep Provider 04/02/2005/07 [place] [address] [address] Assigned Musculoskeletal Provider 04/02/20 08/24/20 Marcelo Artis PA-C [address] [place] [address] [place] [address] Assigned Musculoskeletal Provider 08/25/20 08/20/21 Rodrigo Man PA-C [address] [facility] [address] [place] [address] Assigned Surgical Provider 08/25/20 11/27/20 Noreen Flores APRN CNP [address] [place] [address] [place] [address] Assigned PCP 08/05/22 03/16/23 Agatha Null DPM, Podiatry/Foot and Ankle Surgery [address] [place] [address] [address] [place] [address] Assigned Musculoskeletal Provider 11/04/22 Clinic - [facility] [address] [facility] [place] [id number] Assigned PCP 07/05/23 documented as of this encounter
--- NOTE | 2023-11-02 07:15 | CRLHL7_ITS ---
For Patients: As a result of the Century Cures Act, medical imaging exams and procedure reports are released immediately into your electronic medical record. You may view this report before your referring provider. If you have questions, please contact your health care provider. Indication: Right upper quadrant pain Technique: Dedicated thin and thick slab MRCP obtained Comparison: CT dated 10/18/2023 Findings: No intra or extrahepatic biliary ductal dilatation. No obvious biliary strictures. No suspicious filling defects within the biliary system. The gallbladder is nondistended. No gallstones. No pancreatic ductal dilatation. Non cirrhotic liver morphology. Severe diffuse hepatic steatosis. Adrenal glands appear normal. No splenomegaly. Visualized bowel is nonobstructed. No ascites in the abdomen. No pleural effusions in the lung bases. Bone marrow signal appears unremarkable. Impression: 1. Severe diffuse hepatic steatosis. 2. No intra or extrahepatic biliary ductal dilatation. No suspicious biliary strictures or filling defects. Dictated by Balta Samayoa MD @ 11/05/2023 7:23:17 AM (Electronically Signed)
== END 2023-11-02 07:05 | disposition home or self-care (01) ==
LOC: MRI 07:05
PROVIDERS: PCP Nurse Practitioner Family; Visit Provider Nurse Practitioner Family
DX: R10.11 Right upper quadrant pain (principal); K76.0 Fatty (change of) liver, not elsewhere classified
CPT/HCPCS: 74181

== ENCOUNTER 2023-11-22 08:42 | Outpatient (CLI) | payer BC, SELFPAY ==
--- NOTE | 2023-11-22 09:00 | CRLHL7_ITS ---
For Patients: As a result of the 21st Century Cures Act, medical imaging exams and procedure reports are released immediately into your electronic medical record. You may view this report before your referring provider. If you have questions, please contact your health care provider. INDICATION: Right upper quadrant abdominal pain. Hepatic steatosis. Reportedly dilated common bile duct on ultrasound but not on MRI. TECHNIQUE: 5.3 mCi Tc-99m labeled Mebrofenin. 1.75 mcg Kinevac IV. COMPARISON: Previous HIDA scan May 09, 2022. Correlation is made with an MRI of the abdomen November 02, 2023. FINDINGS: There is normal uptake and excretion of tracer by the liver. Activity is identified promptly within the extrahepatic biliary tree within 5 minutes after injection. The gallbladder begins to fill between 25 and 30 minutes and continues to fill up to 1 hour. No biliary leak. After the administration of CCK, the gallbladder ejection fraction is calculated at 27 percent which is below the lower limit of normal of 35 percent. (The patient`s typical symptoms/right upper quadrant abdominal pain was reproduced with Kinevac administration, rated as 3/10 in severity). When compared to the prior HIDA scan the gallbladder ejection fraction was 53 percent. IMPRESSION: 1. No evidence for cystic duct or common duct obstruction. No biliary leak. No evidence for acute cholecystitis. 2. Mildly delayed filling of the gallbladder. Abnormally low gallbladder ejection fraction of 27 percent. This could reflect chronic acalculous cholecystitis or biliary dyskinesia. Please correlate clinically. Dictated by Zachary Mcdowell MD @ 11/23/2023 9:20:59 AM (Electronically Signed)
== END 2023-11-22 08:43 | disposition home or self-care (01) ==
LOC: NM 08:43
PROVIDERS: PCP Nurse Practitioner Family; Visit Provider Internal Medicine Gastroenterology
DX: R10.11 Right upper quadrant pain (principal); K76.0 Fatty (change of) liver, not elsewhere classified
CPT/HCPCS: 78227; A9537; J2805

== ENCOUNTER 2024-03-27 13:08 | Outpatient (CLI) | payer BC, SELFPAY ==
--- OUTSIDE RECORDS SUMMARY | 2024-03-27 13:13 | XMS_ITS | Encounter Summary ---
Author Organization [facility] Address [address] [place] [address] Care Team Providers Care Health And Wellness Sales Consultant Name Role Phone Noreen Flores MINE MOTOR OPERATOR ARMATURE WINDER REPAIRER Unavailable Sudha Greene FILLER SIFTER MACHINE Primary Care Provider [phone] Agatha Null DPM, Podiatry /Foot and Ankle Surgery Unavailable [facility] Unavailable Encounter Details Date Type Department Care Team (Late st Contact Info) Description 01/12/2023 [facility] Medical Advice [facility] [address] [place] [address] Agatha Null DPM, Podiatry/Foot and Ankle Surgery [address] [place] [address] Chronic pain of right ankle [...] Answer Date Recorded PHQ-2 Score 0 11/10/2020 [facility] Occupat ional Health - Occupational Stress [...] for providerreview/ signature. Haily Gandhi MSA, JUAN Forest Fire Prevention Specialist documented in this encounter Plan of Treatment Not on file documented as of this encounter Visit Diagnoses Diagnosis Chronic pain of right ankle- Primary Peroneal tendon tear, right, subsequent encounter documented in this encounter Additional Health Concerns Assessment Noted Time PHQ-9 Depression Total Score: 7 11/11/19 21 1:31 PM CDT documented as of this encounter Care Teams Health And Wellness Sales Consultant Relationship Specialty Start Date End Date Sudha Greene NP [address] [address] PCP - General 11/01/22 Noreen Flores APRN CNP [address] [place] [address] [place] [address] Assigned PCP 08/05/22 03/16/23 Agatha Null DPM, Podiatry/Foot and Ankle Surgery [address] [place] [address] Assigned Musculoskeletal Provider 11/04/22 [facility] [address] [place] [address] [place] [address] Assigned PCP 07/05/23 12/31/23 documented as of this encounter
--- OUTSIDE RECORDS SUMMARY | 2024-03-27 13:13 | XMS_ITS | Referral Summary ---
Author Organization [place] Address [address] [place] [address] Care Team Providers Care Regulatory Attorney Name Role Phone Sudha Greene NP Primary [...] sprayIndications:Al lergic rhinitis, unspecified seasonality, unspecified trigger [place] 1-2 sprays into both nostrils daily 16 [...] Comments Blood Pressure 128/80 05/11/2023 1:07 PM MONITORING COORDINATOR Pulse 87 02/26/2023 3:58 PM CDT Temperature 36.2 ??C (97.2 ??F) 02/26/2023 3:58 PM CD T Respiratory Rate 12 02/26/2023 3:13 PM CDT Oxygen Saturation 95% 02/26/2023 4:00 PM CDT Inhaled Oxygen Concentration - - Weight 87.1 kg (192 lb) 05/11/2023 1:07 PM MONITORING COORDINATOR Height 156 cm (5' 1.42) 02/26/2023 11:19 AM CDT Body Mass Index 35.79 02/26/2023 11:19 AM CDT Plan of Treatment Not on file Procedures Procedure Name Priority Date/Time Associated Diagnosis Comments COMPREHENSIVE METABOLIC PANEL Routine 11/10/2020 2:29 PM CDT Polyarthralgia EYE EXAM - HIM SCAN 05/17/2020 1 2:00 AM MONITORING COORDINATOR HEMOGLOBIN A1C Routine 01/13/2020 8:55 AM CDT Type 2 diabetes mellitus with complication, without long-term current use of insulin (H) FECAL COLORECTAL CANCER SCREEN FIT Routine 01/12/2020 8:00 AM CDT Health care maintenance ALBUMIN RANDOM URINE QUANTITATIVE Routine 08/08/2019 10:17 AM MONITORING COORDINATOR Routine general medical examination at a [facility] care facility LIPID REFLEX TO DIRECT LDL PANEL Routine 08/08/2019 10:17 AM MONITORING COORDINATOR Routine general medical examination at a [facility] care facility MA SCREENING DIGITAL BILATERAL Routine 09/03/2018 10:13 AM CDT Health care maintenance HIV ANTIGEN ANTIBODY COMBO Routine 04/09/2018 10:09 AM CDT Encounter for screening for HIV HEPATITIS C SCREEN REFLEX TO HCV RNA QUANT AND GENOTYPE Routine 09/25/2016 2:30 PM CDT Need for hepatitis C screening test HPV HIGH RISK TYPES DNA CERVICAL Routine 05/03/2016 12:17 PM MONITORING COORDINATOR Cervical cancer screening PAP IMAGED THIN LAYER SCREEN Routine 05/03/2016 12:00 AM MONITORING COORDINATOR Cervical cancer screening C FOOT EXAM Routine 10/06/2014 9:47 AM CDT Type 2 diabetes, HbA1C goal < 7% (H) from Last 3 Months or Most Recently Relevant to Health Maintenance Results * (ABNORMAL) Comprehensive metabolic panel (11/10/2020 2:29 PM CDT) Sodium 142 133 - 144 mmol/L 11/10/2020 7:51 PM CDT [facility] Potassium 4.0 3.4 - 5.3 mmol/L 11/10/2020 7:51 PM CDT [facility] Chloride 112(H) 94 - 109 mmol/L 11/10/2020 7:51 PM T [facility] Carbon Dioxide 27 20 - 32 mmol/L 11/10/2020 7:58 PM CDT [facility] Anion Gap 4 3 - 14 mmol/L 11/10/2020 7:58 PM CDT [facility] Glucose 96 70 - 99 mg/dL 11/10/2020 7:58 PM CDT [facility] Urea Nitrogen 14 7 - 30 mg/dL 11/10/2020 7:58 PM CDT [facility] Creatinine 0.74 0.52 - 1.04 mg/dL 11/10/2020 7:58 PM T [facility] GFR Estimate >90 >60 mL/min/{1 .73_m2} 11/10/2020 7:58 PM T [facility] Comment: Non GFR Calc Starting 05/28/2018, serum creatinine based estimated GFR (eGFR) will be calculated using the Chronic Kidney Disease Epidemiology Collaboration (CKD-EPI) equation. GFR Estimate If Black >90 >60 mL/min/{1 .73_m2} 11/10/2020 7:58 PM T [facility] Comment: GFR Calc Starting 05/28/2018, serum creatinine based estimated GFR (eGFR) will be calculated using the Chronic Kidney Disease Epidemiology Collaboration (CKD-EPI) equation. Calcium 9.3 8.5 - 10.1 mg/dL 11/10/2020 7:58 PM CDT [facility] Bilirubin Total 0.6 0.2 - 1.3 mg/dL 11/10/2020 8:01 PM CDT [facility] Albumin 3.6 3.4 - 5.0 g/dL 11/10/2020 8:01 PM T [facility] Protein Total 7.2 6.8 - 8.8 g/dL 11/10/2020 8:01 PM T [facility] Alkaline Phosphatase 143 40 - 150 U/L 11/10/2020 8:01 PM CDT [facility] ALT 23 0 - 50 U/L 11/10/2020 8:01 PM CDT [facility] AST 16 0 - 45 U/L 11/10/2020 8:01 PM CDT [facility] Blood 11/10/2020 2:29 PM CDT 11/10/2020 3:04 PM CDT Kavin Fitzgerald PA-C LAB - BLO OD ORDERABLES [facility] [address] [place] [address] * EYE EXAM - HIM SCAN (05/17/2020 12:00 AM MONITORING COORDINATOR) Pathologist [facility] RETINOPATHY NEGATIVE 05/17/2020 Narrative Lauren Posada - 05/17/2020 12:00 AM MONITORING COORDINATOR DIABETIC EYE EXAM [facility] Provider Outside OTHER * (ABNORMAL) A1C FUTURE 1yr (01/13/2020 8:55 AM CDT) Pathologist [facility] Hemoglobin A1C 6.1(H) 0 - 5.6 % 01/13/2020 9:27 AM CDT [facility] Comment: Normal <5.7% Prediabetes 5.7-6.4% ??Diabetes 6.5% or higher - adopted from ADA consensus guidelines. Blood specimen (specimen) 01/13/2020 8:55 AM CDT 01/13/2020 8:56 AM CDT Noreen Flores APRN, CNP LAB - BLOOD ORDERABLES [address] [address] * Fecal colorectal cancer screen (FIT) (01/12/2020 8:00 AM CDT) Pathologist [facility] Occult Blood Scn FIT Negative NEG^Negati ve 01/18/2020 4:19 PM CDT [facility] Stool specimen (specimen) 01/12/2020 8:00 AM CDT 01/18/2020 1:16 PM CDT Noreen Flores APRN, CNP LAB - STOOLS ORDERABLES [facility] [address] [place] [address] * Albumin Random Urine Quantitative with Creat Ratio (08/08/2019 10:17 AM MONITORING COORDINATOR) Creatinine Urine 154 mg/dL 08/09/2019 1:54 PM MONITORING COORDINATOR [facility] Albumin Urine mg/L 11 mg/L 08/09/2019 1:59 PM MONITORING COORDINATOR [facility] Albumin Urine mg/g Cr 7.14 0 - 25 mg/g Cr 08/09/2019 1:59 PM MONITORING COORDINATOR [facility] Urine specimen (specimen) 08/08/2019 10:17 AM MONITORING COORDINATOR 08/08/2019 10:18 AM MONITORING COORDINATOR Noreen Flores APRN, CNP LAB - URINE ORDERABLES [facility] [address] [place] [address] * (ABNORMAL) Lipid panel reflex to direct LDL Fasting (08/08/2019 10:17 AM MONITORING COORDINATOR) Cholesterol 180 <200 mg/dL 08/08/2019 7:47 PM MONITORING COORDINATOR [facility] Triglycerides 153(H) <150 mg/dL 08/08/2019 7:47 PM [facility] Comment: Borderline high: ??150-199 mg/dl High: ? 200-499 mg/dl Very high: ? >499 mg/dl HDL Cholesterol 46(L) >49 mg/dL 0 7:47 PM [facility] LDL Cholesterol Calculated 103(H) <100 mg/dL 08/08/2019 7:47 PM MONITORING COORDINATOR [facility] Comment: Above desirable: ??100-129 mg/dl Borderline High: ??130-159 mg/dL High: ? 160-189 mg/dL Very high: ? >189 mg/dl Non HDL Cholesterol 134(H) <130 mg/dL 08/08/2019 7:47 PM MONITORING COORDINATOR [facility] Comment: Above Desirable: ??130-159 mg/dl Borderline high: ??160-189 mg/dl High: ? 190-219 mg/dl Very high: ? >219 mg/dl Blood specimen (specimen) 08/08/2019 10:17 AM MONITORING COORDINATOR 08/08/2019 10:18 AM MONITORING COORDINATOR Noreen Flores APRN CYBER SECURITY CONSULTANT LAB - BLOOD ORDERABLES Performing Organization Address City/State/[facility] Co de Phone Number [facility] [address] [place], [place] [address] [phone] * *MA Screening Digital Bilateral (09/03/2018 10:13 AM CDT) Anatomical Region Laterality Modality Breast Bilateral Mammography Impressions 09/03/2018 10:30 AM CDT IMPRESSION: BI-RADS CATEGORY: 1 - ??Negative. RECOMMENDED FOLLOW-UP: Annual Mammography. PANCHITO DESIR MD Narrative 09/03/2018 10:30 AM CDT SCREENING MAMMOGRAM, BILATERAL, DIGITAL w/CAD, 09/03/2018 10:29 AM BREAST DENSITY: Scattered fibroglandular densities. CLINICAL INFORMATION: Breast screening. ??[facility], 09/30/15, 04/16/15, 05/27/13 FINDINGS: Negative. Stable exam. Screening exam in one year recommended. Procedure Note Panchito Desir MD - 09/03/2018 SCREENING MAMMOGRAM, BILATERAL, DIGITAL w/CAD, 09/03/2018 10:29 AM BREAST DENSITY: Scattered fibroglandular densities. CLINICAL INFORMATION: Breast screening. [facility], 09/30/15, 04/16/15, 05/27/13 FINDINGS: Negative. Stable exam. Screening exam in one year recommended. IMPRESSION: BI-RADS CATEGORY: 1 - Negative. RECOMMENDED FOLLOW-UP: Annual Mammography. PANCHITO DESIR MD Noreen Flores APRN, CNP IMG MAMMOGRAPHY ORDERABLES * HIV Antigen Antibody Combo (04/09/2018 10:09 AM CDT) HIV Antigen Antibody Combo Nonreactive NR^Nonrea ctive 04/10/2018 7:29 AM CDT [facility] Comment:HIV-1 p24 Ag & HIV-1 /HIV-2 Ab Not Detected Blood specimen (specimen) 04/09/2018 10:09 AM CDT 04/09/2018 10:15 AM CDT Noreen Flores APRN, CNP LAB - BLOOD ORDERABLES [facility] [address] * Hepatitis C Screen Reflex to HCV RNA Quant and Genotype (09/25/2016 2:30 PM CDT) Pathologist [facility] Hepatitis C Antibody Nonreactive Assay performance characteristics have not been established for newborns, infants, and children NR [facility] Blood specimen (specimen) 09/25/2016 2:30 PM CDT 09/26/2016 11:29 AM CDT Vanda Borja MD LAB - BLOOD ORDER ILDEFONSO [facility] [address] [place] [address] * HPV High Risk Types DNA Cervical (05/03/2016 12:17 PM MONITORING COORDINATOR) HPV 16 DNA Negative NEG UNIVERSIT Y [...] and its performance characteristics determined by the [facility], Molecular Diagnostics Laboratory. It has not been cleared or approved by the FDA. The laboratory is regulated under CLIA as qualified to perform high-complexity testing. This test is used for clinical purposes. It should not be regarded as investigational or for research. [facility] Specimen Description Cervical Cells [id number] [facility] Cervical Cells 05/03/2016 12 :17 PM MONITORING COORDINATOR 05/03/2016 12:20 PM MONITORING COORDINATOR Vanda Borja MD LAB - BLOOD ORDER ILDEFONSO [facility] [address] [place] [address] * Pap imaged thin layer screen with HPV - recommended age 30 - 65 years (select HPV order below) (05/03/2016 12:00 AM MONITORING COORDINATOR) PAP RAMSEY Wren Report Patient Name: MEGAN WONG MR#: [id number] Specimen #: [id number] Collected: 05/03/2016 Received: 05/05/2016 Reported: 05/09/2016 08:26 [...] TARIQ Wick (ASCP) Processed and screened at [facility], [facility] CLINICAL HISTORY: LMP: 10/30/11 Post Menopausal, Previous normal pap Date of Last Pap: 10/06/14, Papanicolaou Test Limitations: ??Cervical cytology is a screening test with limited sensitivity; regular screening is critical for cancer prevention; Pap tests are primarily effective for the diagnosis/preventi on of squamous cell carcinoma, not adenocarcinomas or other cancers. TESTING LAB LOCATION: [address] ??[id number] COLLECTION SITE: Client: ??[facility] Location: [facility] (R) COPATH Cytologic material (specimen) 05/03/2016 05/05/2016 10:22 AM MONITORING COORDINATOR Vanda Borja MD LAB - OPTIME CLIN ICAL SPECIMEN COPATH from Last 3 Months or Most Recently Relevant to Health Maintenance Care Teams Regulatory Attorney Relationship Specialty Start Date End Date Sudha Greene NP [address] [address] PCP - General 11/01/22 Agatha Null DPM, Podiatry/Foot and Ankle Surgery [address] [place] [address] [place] [address] Assigned Musculoskeletal Provider 11/04/22
--- OUTSIDE RECORDS SUMMARY | 2024-03-27 13:13 | XMS_ITS | Encounter Summary ---
Author Organization [facility] Address [address] [place] [address] Care Team Providers Care Health And Wellness Coach Name Role Phone Noreen Flores SUPERVISOR PLASTERING TELETYPESETTER OPERATOR Unavailable Sudha Greene COTTON FACTOR Primary Care Provider Agatha Null DPM, Podiatry /Foot and Ankle Surgery Unavailable Clinic - [facility] Unavailable Encounter Details Date Type Department Care Team (Late st Contact Info) Description 01/04/2023 [facility] Medical Advice [facility] [address] [place] [address] Tony Orozco Social History Tobacco [...] Answer Date Recorded PHQ-2 Score 0 11/10/2020 [facility] of Occupat ional Health - Occupational [...] this encounter Care Teams Health And Wellness Coach Relationship Specialty Start Date End Date Sudha Greene NP [address] [address] PCP - General 11/01/22 Noreen Flores APRN TELETYPESETTER OPERATOR [address] [facility] [place] [address] Assigned PCP 08/05/22 03/16/23 Agatha Null DPM, Podiatry/Foot and Ankle Surgery [address] [place] [address] Assigned Musculoskeletal Provider 11/04/22 Clinic - [facility] [address] [place] [address] [place] [address] Assigned PCP 07/05/23 12/31/23 documented as of this encounter
--- OUTSIDE RECORDS SUMMARY | 2024-03-27 13:13 | XMS_ITS | Encounter Summary ---
Author Organization [facility] Address [address] [place] [address] Care Team Providers Care Beam Department Supervisor Name Role Phone Noreen Flores BANDAGE MAKER EDGE STRIPPER Unavailable Sudha Greene ROUTE DELIVERY MANAGER Primary Care Provider [phone] Agatha Null DPM, Podiatry /Foot and Ankle Surgery Unavailable [facility] - [facility] Unavailable Reason for Visit * Reason Onset Date Comments Forms 02/02/2023 Encounter Details Date Type Department Care Team (Late st Contact Info) Description 02/02/2023 [facility] Medical Advice [facility] Podiatry [address] [place], [place] [address] Agatha Null DPM, Podiatry/Foot and Ankle Surgery [address] [place] [address] Forms Social History Tobacco Use [...] Answer Date Recorded PHQ-2 Score 0 11/10/2020 [facility] [place] of Occupat ional Health - Occupational Stress [...] documented as of this encounter Care Teams Beam Department Supervisor Relationship Specialty Start Date End Date Sudha Greene NP [address] [address] PCP - General 11/01/22 Noreen Flores APRN CNP [address] [place] [address] [place] [address] Assigned PCP 08/05/22 03/16/23 Agatha Null, MARÍA, Podiatry/Foot and Ankle Surgery [address] [place] [address] Assigned Musculoskeletal Provider 11/04/22 [facility] [address] [facility] DAV[place] ORDOÑEZ [address] Assigned PCP 07/05/23 12/31/23 documented as of this encounter
--- OUTSIDE RECORDS SUMMARY | 2024-03-27 13:13 | XMS_ITS | Continuity of Care Document ---
Author Organization [facility] Address [address] [place] [address] Phone Care Team Providers Care Paper Cutter Name Role Phone Renee SALDANA MD, Emeka Unavailable Unavailable Advance Directives Directive Yes / No Effective Date File Name No Information Encounters Encounter Description Practice Location Reason(s) For Visit Diagnoses Date Provider Providers Copied on Encounter [facility], [address], [place], [place], [id number], [place] tel:[phone] No Information 0 Renee Hendrickson. [address], [place], [address], [place]. tel:[phone] Referring Provider: Emeka Duran MD J, [address] [place], [address]. tel:[phone] Family History Family Member Type Diagnosis Age At Onset No Information Payers Payer name Insurance type Covered constitution party ID Sharanabeba carolynnmarilyn(s) [facility] [id number] Social History Type Description Quantity Date Captured Comments Sex Female Smoking Status No Information Chief Complaint And Reason For Visit No Information Reason For Referral Reason For Referral No Information History Of Present Illness Encounter Date Complaint History Of Prese nt Illness No Information Functional Status Date Functional Assessmen t No Information Instructions Date Instruction Additional Infor mation No Information Assessments Type Assessment Date No Information Patient Care Teams Name Effective Dates (start - stop) Status Members No Information
--- OUTSIDE RECORDS SUMMARY | 2024-03-27 13:13 | XMS_ITS | Clinical Summary ---
Author Organization [place] Address [address] [place] [address] Care Team Providers Care Playground Supervisor Name Role Phone Sudha Greene NP Primary [...] sprayIndications:Al lergic rhinitis, unspecified seasonality, unspecified trigger [place] 1-2 sprays into both nostrils daily 16 [...] Brother 5 Cardiovascular Father [place] early 40s, almodovar bsequent bipass Diabetes Father [...] Answer Date Recorded PHQ-2 Score 0 11/10/2020 [facility] of Occupat ional Health [...] Comments Blood Pressure 128/80 05/11/2023 1:07 PM CHANGE MANAGEMENT LEAD Pulse 87 02/26/2023 3:58 PM CDT Temperature 36.2 ??C (97.2 ??F) 02/26/2023 3:58 PM CD T Respiratory Rate 12 02/26/2023 3:13 PM CDT Oxygen Saturation 95% 02/26/2023 4:00 PM CDT Inhaled Oxygen Concentration - - Weight 87.1 kg (192 lb) 05/11/2023 1:07 PM CHANGE MANAGEMENT LEAD Height 156 cm (5' 1.42) 02/26/2023 11:19 [...] ORDERS 03/16/2021 03/16/2020 HPV TEST 05/03/2021 05/03/2016, 09/10, 10/06/2014 PAP 05/03/2021 05/03/2016, 09/10, 05/05/2011, Additional history exists PHQ-9 05/12/2021 11/10/2020, 10/0 11/2019, 08/08/2019, Additional history exists EYE EXAM 05/17/2021 05/17/2020, 02/26/2019 BMP 11/10/2021 11/10/2020, 10/10, 08/08/2019, Additional history exists RSV VACCINE (1 - Risk 60-74 years 1-dose series) 2023 ADVANCE CARE PLANNING 07/25/2023 07/25/2018 COVID-19 Vaccine ( season) 2024 06/07/2022, 06/24/2021, 09/24/2020, Additional history exists INFLUENZA VACCINE (#1) 2024 2, 08/08/2019 (Declined), 06/12/2017, Additional history exists DTAP/TDAP/TD IMMUNIZATION (2 - Td or Tdap) 03/23/2026 03/23/2016, 06/16/2005 MIGRAINE ACTION PLAN Completed 03/09/2011, 12/17/19 [...] - HIM SCAN 05/17/2020 1 2:00 AM CHANGE MANAGEMENT LEAD HEMOGLOBIN A1C Routine 01/13/2020 8:55 AM CDT Type 2 diabetes mellitus with complication, without long-term current use of insulin (H) FECAL COLORECTAL CANCER SCREEN FIT Routine 01/12/2020 8:00 AM CDT Health care maintenance ALBUMIN RANDOM URINE QUANTITATIVE Routine 08/08/2019 10:17 AM CHANGE MANAGEMENT LEAD Routine general medical examination at a health care facility LIPID REFLEX TO DIRECT LDL PANEL Routine 08/08/2019 10:17 AM CHANGE MANAGEMENT LEAD Routine general medical examination at a health [...] TYPES DNA CERVICAL Routine 05/03/2016 12:17 PM CHANGE MANAGEMENT LEAD Cervical cancer screening PAP IMAGED THIN LAYER SCREEN Routine 05/03/2016 12:00 AM CHANGE MANAGEMENT LEAD Cervical cancer screening C FOOT EXAM Routine 10/06/2014 9:47 AM CDT Type 2 diabetes, HbA1C goal < 7% (H) from Last 3 Months or Most Recently Relevant to Health Maintenance Results * (ABNORMAL) Comprehensive metabolic panel (11/10/2020 2:29 PM CDT) Sodium 142 133 - 144 mmol/L 11/10/2020 7:51 PM CDT [facility] Potassium 4.0 3.4 - 5.3 mmol/L 11/10/2020 7:51 PM CDT [facility] Chloride 112(H) 94 - 109 mmol/L 11/10/2020 7:51 PM CDT [facility] Carbon Dioxide 27 20 - 32 mmol/L 11/10/2020 7:58 PM CDT [facility] Anion Gap 4 3 - 14 mmol/L 11/10/2020 7:58 PM CDT [facility] Glucose 96 70 - 99 mg/dL 11/10/2020 7:58 PM T [facility] Urea Nitrogen 14 7 - 30 mg/dL 11/10/2020 7:58 PM T [facility] Creatinine 0.74 0.52 - 1.04 mg/dL 11/10/2020 7:58 PM CDT [facility] GFR Estimate >90 >60 mL/min/{1 .73_m2} 11/10/2020 7:58 PM T [facility] Comment: Non GFR Calc Starting 05/28/2018, serum creatinine based estimated GFR (eGFR) will be calculated using the Chronic Kidney Disease Epidemiology Collaboration (CKD-EPI) equation. GFR Estimate If Black >90 >60 mL/min/{1 .73_m2} 11/10/2020 7:58 PM T [facility] Comment: GFR Calc Starting 05/28/2018, serum creatinine based estimated GFR (eGFR) will be calculated using the Chronic Kidney Disease Epidemiology Collaboration (CKD-EPI) equation. Calcium 9.3 8.5 - 10.1 mg/dL 11/10/2020 7:58 PM T [facility] Bilirubin Total 0.6 0.2 - 1.3 mg/dL 11/10/2020 8:01 PM T [facility] Albumin 3.6 3.4 - 5.0 g/dL 11/10/2020 8:01 PM T [facility] Protein Total 7.2 6.8 - 8.8 g/dL 11/10/2020 8:01 PM T [facility] Alkaline Phosphatase 143 40 - 150 U/L 11/10/2020 8:01 PM CDT [facility] ALT 23 0 - 50 U/L 11/10/2020 8:01 PM T [facility] AST 16 0 - 45 U/L 11/10/2020 8:01 PM CDT [facility] Blood 11/10/2020 2:29 PM CDT 11/10/2020 3:04 PM CDT Kavin Fitzgerald PA-C LAB - BLO OD ORDERABLES Performing Organization Address City/[facility]/ZIP Co de Phone Number [facility] [address] [place] [address] * EYE EXAM - HIM SCAN (05/17/2020 12:00 AM CHANGE MANAGEMENT LEAD) RETINOPATHY NEGATIVE 05/17/2020 Narrative Lauren Posada - 05/17/2020 12:00 AM CHANGE MANAGEMENT LEAD DIABETIC EYE EXAM [facility] Provider Outside OTHER * (ABNORMAL) A1C FUTURE 1yr (01/13/2020 8:55 AM CDT) Hemoglobin A1C 6.1(H) 0 - 5.6 % 01/13/2020 9:27 AM CDT [facility] Comment: Normal <5.7% Prediabetes 5.7-6.4% ??Diabetes 6.5% or higher - adopted from ADA consensus guidelines. Blood specimen (specimen) 01/13/2020 8:55 AM CDT 01/13/2020 8:56 AM CDT Noreen Flores APRN, CNP LAB - BLOOD ORDERABLES [facility] [address] [place] [id number] * Fecal colorectal cancer screen (FIT) (01/12/2020 8:00 AM CDT) Occult Blood Scn FIT Negative NEG^Negati ve 01/18/2020 4:19 PM CDT [facility] Stool specimen (specimen) 01/12/2020 8:00 AM CDT 01/18/2020 1:16 PM CDT Noreen Flores APRN PUDDLER HELPER LAB - STOOLS ORDERABLES [facility] [address] [place] [address] * Albumin Random Urine Quantitative with Creat Ratio (08/08/2019 10:17 AM CHANGE MANAGEMENT LEAD) Creatinine Urine 154 mg/dL 08/09/2019 1:54 [address] [facility] Albumin Urine mg/L 11 mg/L 08/09/2019 1:59 [address]ANGE MANAG[address] LE[address] [facility] Albumin Urine mg/g Cr 7.14 0 - 25 mg/g Cr 08/09/2019 1:59 [address] MANAGEMENT LE[address] [facility] Urine specimen (specimen) 08/08/2019 10:17 AM CHANGE MANAGEMENT LEAD 08/08/2019 10:18 AM CHANGE MANAGEMENT LEAD Noreen Flores APRN PUDDLER HELPER LAB - URINE ORDERABLES Performing Organization Address City/[facility]/ZIP Co de Phone Number [facility] [address] [place] [address] * (ABNORMAL) Lipid panel reflex to direct LDL Fasting (08/08/2019 10:17 AM CHANGE MANAGEMENT LEAD) Cholesterol 180 <200 mg/dL 08/08/2019 7:47 PM [facility] Triglycerides 153(H) <150 mg/dL 08/08/2019 7:47 PM [facility] Comment: Borderline high: ??150-199 mg/dl High: ? 200-499 mg/dl Very high: ? >499 mg/dl HDL Cholesterol 46(L) >49 mg/dL 0 7:47 PM [facility] LDL Cholesterol Calculated 103(H) <100 mg/dL 08/08/2019 7:47 PM [facility] Comment: Above desirable: ??100-129 mg/dl Borderline High: ??130-159 mg/dL High: ? 160-189 mg/dL Very high: ? >189 mg/dl Non HDL Cholesterol 134(H) <130 mg/dL 08/08/2019 7:47 PM CHANGE MANAGEMENT LEAD [facility] Comment: Above Desirable: ??130-159 mg/dl Borderline high: ??160-189 mg/dl High: ? 190-219 mg/dl Very high: ? >219 mg/dl Blood specimen (specimen) 08/08/2019 10:17 AM CHANGE MANAGEMENT LEAD 08/08/2019 10:18 AM CHANGE MANAGEMENT LEAD Noreen Flores APRN PUDDLER HELPER LAB - BLOOD ORDERABLES [facility] [address] [place] [address], [facility] [phone] * *MA Screening Digital Bilateral (09/03/2018 10:13 AM CDT) Anatomical Region Laterality Modality Breast Bilateral Mammography Impressions 09/03/2018 10:30 AM CDT IMPRESSION: BI-RADS CATEGORY: 1 - ??Negative. RECOMMENDED FOLLOW-UP: Annual Mammography. PANCHITO DESIR MD Narrative 09/03/2018 10:30 AM CDT SCREENING MAMMOGRAM, BILATERAL, DIGITAL w/CAD, 09/03/2018 10:29 AM BREAST DENSITY: Scattered fibroglandular densities. CLINICAL INFORMATION: Breast screening. ??[facility], 09/30/15, 04/16/15, 05/27/13 FINDINGS: Negative. Stable exam. Screening exam in one year recommended. Procedure Note Panchito Desir MD - 09/03/2018 SCREENING MAMMOGRAM, BILATERAL, DIGITAL w/CAD, 09/03/2018 10:29 AM BREAST DENSITY: Scattered fibroglandular densities. CLINICAL INFORMATION: Breast screening. [facility], 09/30/15, 04/16/15, 05/27/13 FINDINGS: Negative. Stable exam. Screening exam in one year recommended. IMPRESSION: BI-RADS CATEGORY: 1 - Negative. RECOMMENDED FOLLOW-UP: Annual Mammography. PANCHITO DESIR MD Noreen Flores APRN, CNP IMG MAMMOGRAPHY ORDERABLES * HIV Antigen Antibody Combo (04/09/2018 10:09 AM CDT) Pathologist [facility] HIV Antigen Antibody Combo Nonreactive NR^Nonrea ctive 04/10/2018 7:29 AM CDT [facility] Comment:HIV-1 p24 Ag & HIV-1 /HIV-2 Ab Not Detected Blood specimen (specimen) 04/09/2018 10:09 AM CDT 04/09/2018 10:15 AM CDT Noreen Flores APRN, CNP LAB - BLOOD ORDERABLES [facility] [address] * Hepatitis C Screen Reflex to HCV RNA Quant and Genotype (09/25/2016 2:30 PM CDT) Pathologist [facility] Hepatitis C Antibody Nonreactive Assay performance characteristics have not been established for newborns, infants, and children NR [facility] Blood specimen (specimen) 09/25/2016 2:30 PM CDT 09/26/2016 11:29 AM CDT Vanda Borja MD LAB - BLOOD ORDER ILDEFONSO [facility] [address] [place] [address] * HPV High Risk Types DNA Cervical (05/03/2016 12:17 PM CHANGE MANAGEMENT LEAD) Pathologist [facility] HPV 16 DNA Negative NEG [facility] HPV 18 DNA Negative NEG [facility] Other HR HPV Negative NEG [facility] Final Diagnosis This patient's sample is negative [...] and its performance characteristics determined by the [facility], Molecular Diagnostics Laboratory. It has not been cleared or approved by the FDA. The laboratory is regulated under CLIA as qualified to perform high-complexity testing. This test is used for clinical purposes. It should not be regarded as investigational or for research. [facility] Specimen Description Cervical Cells C16 [id number] [facility] Cervical Cells 05/03/2016 12 :17 PM CHANGE MANAGEMENT LEAD 05/03/2016 12:20 PM CHANGE MANAGEMENT LEAD Vanda Borja MD LAB - BLOOD ORDER ILDEFONSO [facility] [address] [place] [address] * Pap imaged thin layer screen with HPV - recommended age 30 - 65 years (select HPV order below) (05/03/2016 12:00 AM CHANGE MANAGEMENT LEAD) PAP RAMSEY Wren Report Patient Name: MEGAN WONG MR#: [id number] Specimen #: [id number] Collected: 05/03/2016 Received: 05/05/2016 Reported: 05/09/2016 08:26 [...] TARIQ Wick (ASCP) Processed and screened at [facility], [facility] CLINICAL HISTORY: LMP: 10/30/11 Post Menopausal, Previous normal pap Date of Last Pap: 10/06/14, Papanicolaou Test Limitations: ??Cervical cytology is a screening test with limited sensitivity; regular screening is critical for cancer prevention; Pap tests are primarily effective for the diagnosis/preventi on of squamous cell carcinoma, not adenocarcinomas or other cancers. TESTING LAB LOCATION: [facility] [address] [address] [place], [place] ??[address] COLLECTION SITE: Client: ??[facility] Location: [facility] (R) COPATH Cytologic material (specimen) 05/03/2016 05/05/2016 10:22 AM CHANGE MANAGEMENT LEAD Vanda Borja MD LAB - OPTIME CLIN ICAL SPECIMEN COPATH from Last 3 Months or Most Recently Relevant to Health Maintenance Care Teams Playground Supervisor Relationship Specialty Start Date End Date Sudha Greene NP [facility] [address] [place] [address] PCP - General 11/01/22 Agatha Null DPM, Podiatry/Foot and Ankle Surgery [address] [place] [address] Assigned Musculoskeletal Provider 11/04/22
--- OUTSIDE RECORDS SUMMARY | 2024-03-27 13:13 | XMS_ITS | Encounter Summary ---
Author Organization [place] Address [address] [place] [address] Care Team Providers Care Lacquer Spray Booth Operator Name Role Phone Noreen Flores APRN MENTAL HEALTH DIRECTOR Unavailable Noreen Flores APRN MENTAL HEALTH DIRECTOR Primary Car e Provider Kalyan Galvan Unavailable Unavailable Eduardo Sharma MD Unavailable Marcelo Artis PA-C Unavailable Noreen Flores APRN MENTAL HEALTH DIRECTOR Unavailable Sudha Greene NP Primary Care Provider [phone] Agatha NullM, Podiatry /Foot and Ankle Surgery Unavailable [facility] Unavailable Encounter Details Date Type Department Care Team (Late st Contact Info) Description 02/28/2021 MyC Medical Advice [facility] [address] [place] [phone] Lainey Wells Social History Tobacco Use Types [...] Answer Date Recorded PHQ-2 Score 0 11/10/2020 [facility] of Occupat ional Health - Occupational [...] documented as of this encounter Care Teams Lacquer Spray Booth Operator Relationship Specialty Start Date End Date Noreen Flores APRN MENTAL HEALTH DIRECTOR [address] [place] [address] [place] [address] PCP - General Nurse Practitioner 01/09/19 12/12/21 Sudha Greene NP [facility] [address] [address] PCP - General 11/01/22 Noreen Flores APRN MENTAL HEALTH DIRECTOR [address] [place] [address] [place] [address] Assigned PCP 06/16/18 05/26/22 Kalyan Galvan Personal Advocate & Liaison (PAL) 08/08/19 04/26/21 Eduardo Sharma MD [address] [address] Assigned Sleep Provider 04/02/2005/07 Marcelo Artis PA-C [address] [address] Assigned Musculoskeletal Provider 08/25/20 08/20/21 Noreen Flores APRN MENTAL HEALTH DIRECTOR [address] [place] [address] [place] [address] Assigned PCP 08/05/22 03/16/23 Agatha Null DPM, Podiatry/Foot and Ankle Surgery [address] [facility] [address] [place] [address] Assigned Musculoskeletal Provider 11/04/22 [facility] [place] [address] [place] [address] Assigned PCP 07/05/23 12/31/23 documented as of this encounter
--- OUTSIDE RECORDS SUMMARY | 2024-03-27 13:13 | XMS_ITS | Encounter Summary ---
Author Organization [place] Address [address] [place] [address] Care Team Providers Care Fifth Hand Name Role Phone Noreen Flores APRN NURSE FIRST AID Unavailable Noreen Flores APRN NURSE FIRST AID Primary Car e Provider Marcelo Artis PA-C Unavailable [phone] Noreen Flores APRN NURSE FIRST AID Unavailable Sudha Greene NP Primary Care Provider Agatha Null DPM, Podiatry /Foot and Ankle Surgery Unavailable [facility] Unavailable Encounter Details Date Type Department Care Team (Late st Contact Info) Description 07/25/2021 MyC Medical Advice [facility] [address] [facility] [address] [place] [address] Christi Panda MA Social History [...] Friends and Family Patient declined 08/08/2019 Attends [employer] Patient declined 07/13 Active Member of [...] Answer Date Recorded PHQ-2 Score 0 11/10/2020 [facility] of Occupat ional Health - Occupational [...] documented as of this encounter Care Teams Fifth Hand Relationship Specialty Start Date End Date Noreen Flores APRN NURSE FIRST AID [address] [place] [address] PCP - General Nurse Practitioner 01/09/19 12/12/21 Sudha Greene NP [address] [address] PCP - General 11/01/22 Noreen Flores APRN NURSE FIRST AID [address] [place] [address] [place] [address] Assigned PCP 06/16/18 05/26/22 Marcelo Artis PA-C [address] [place] [address] Assigned Musculoskeletal Provider 08/25/20 08/20/21 Noreen Flores APRN NURSE FIRST AID [address] [place] [address] [place] [address] Assigned PCP 08/05/22 03/16/23 Agatha Null DPM, Podiatry/Foot and Ankle Surgery [address] [place] [address] [address] [place] [address] Assigned Musculoskeletal Provider 11/04/22 [facility] [address] [place] [address] Assigned PCP 07/05/23 12/31/23 documented as of this encounter
--- OUTSIDE RECORDS SUMMARY | 2024-03-27 13:13 | XMS_ITS | Encounter Summary ---
Author Organization [place] Address [address] [place] [address] Care Team Providers Care Senior Information Security Analyst Name Role Phone Noreen Flores APRN DRYWALL STRIPPER HELPER Unavailable Noreen Flores APRN DRYWALL STRIPPER HELPER Primary Car e Provider Kalyan Galvan Unavailable Unavailable Eduardo Sharma MD Unavailable Marcelo Artis PA-C Unavailable Noreen Flores APRN DRYWALL STRIPPER HELPER Unavailable Sudha Greene NP Primary Care Provider Agatha NullM, Podiatry /Foot and Ankle Surgery Unavailable [facility] Unavailable Reason for Visit * Reason Comments Medication Refill Encounter Details Date Type Department Care Team (Late st Contact Info) Description 01/06/2021 Refill [facility] [place] [address] [place] [address] Noreen Flores APRN DRYWALL STRIPPER HELPER [address] [facility] [place] [id number] Medication Refill Social History Tobacco Use Types [...] Start Date End Date Noreen Flores APRN DRYWALL STRIPPER HELPER [address] [place] [address] [place] [address] PCP - General Nurse Practitioner 01/09/19 12/12/21 Sudha Greene NP [address] [address] PCP - General 11/01/22 Noreen Flores APRN DRYWALL STRIPPER HELPER [address] [place] [address] [place] [address] Assigned PCP 06/16/18 05/26/22 Kalyan Galvan Personal Advocate & Liaison (PAL) 08/08/19 04/26/21 Eduardo Sharma MD [address] [address] Assigned Sleep Provider 04/02/2005/07 Marcelo Artis PA-C [address] [address] Assigned Musculoskeletal Provider 08/25/20 08/20/21 Noreen Flores APRN DRYWALL STRIPPER HELPER [address] [place] [address] [place] [address] Assigned PCP 08/05/22 03/16/23 Agatha Null, MARÍA, Podiatry/Foot and Ankle Surgery [address] [place] [address] Assigned Musculoskeletal Provider 11/04/22 [facility] - [facility] [address] [place] [id number] Assigned PCP 07/05/23 12/31/23 documented as of this encounter
--- OUTSIDE RECORDS SUMMARY | 2024-03-27 13:13 | XMS_ITS | Clinical Summary ---
Author Organization [employer] [facility] [facility] Address [place], [place] [address] Care Team Providers Care Clinical Statistics Manager Name Role Phone Sudha Greene NP Primary Care Provider [phone] Allergies Active Allergy Reactions Criticality Noted Date [...] CDT Oxygen Saturation 97% 08/12/2020 6:13 PM BEST WORKER Inhaled Oxygen Concentration - - Weight 79.4 [...] (1 of 2) 2013 COVID-19 vaccine series ( season) 2024 06/07/2022, 06/24/2021, 09/24/2020, Additional history exists Influenza for age 50-64 02/10/2024 Pap test for age 21-65 10/14/2024 10/14/2021, 2021 Pneumococcal series for age 6-64 Aged Out No longer eligible based on patient's age to complete this topic Procedures Procedure Name Priority Date/Time Associated Diagnosis Comments HPV HIGH RISK Routine 10/14/2021 10:54 AM CDT from Last 3 Months or Most Recently Relevant to Health Maintenance Results * HPV HIGH RISK (10/14/2021 10:54 AM CDT) TYPE 16 Negative Negative 11/04/2021 10:35 AM CDT [facility] TYPE 18 Negative Negative 11/04/2021 10:35 AM CDT [facility] OTHER HIGH RISK TYPES Negative Negative 11/04/2021 10:35 AM CDT [facility] Tissue (Other) Client Collect / Unknown 10/14/2021 10:54 AM CDT 11/02/2021 5:19 PM CDT Narrative [facility] - 11/04/2021 10:35 AM CDT HPV types 16, 18, 31, 33, 35, 39, 45, 51, 52, 56, 58, 59, 66 and 68 DNA were undetectable or below the pre-set threshold. Methodology: [employer] 4800 HPV Test Doctor Unknown [facility] [address] [place] [address], from Last 3 Months or Most Recently Relevant to Health Maintenance Care Teams Clinical Statistics Manager Relationship Specialty Start Date End Date Sudha Greene NP [address] [place] [address] [place] [address] PCP - General Emergency Medicine 03/27/22
--- OUTSIDE RECORDS SUMMARY | 2024-03-27 13:14 | XMS_ITS | Encounter Summary ---
Author Organization [place] Address [address] [place] [address] Care Team Providers Care Electrical Development Engineer Name Role Phone Noreen Flores APRN FRESCO ARTIST Unavailable Noreen Flores APRN FRESCO ARTIST Primary Car e Provider Kalyan Galvan Unavailable Unavailable Lashae Trevino [facility] Unavailable Eduardo Sharma MD Unavailable Marcelo Artis PA-C Unavailable [phone] Rodrigo Man PA-C Unavailable [phone] Noreen Flores APRN FRESCO ARTIST Unavailable Sudha Greene NP Primary Care Provider Agatha Null DPM, Podiatry /Foot and Ankle Surgery Unavailable Clinic - [facility] Unavailable Reason for Visit * Reason Onset Date Comments Refill Request 09/24/2020 zolpidem (AMBIEN ) 5 MG tablet Encounter Details Date Type Department Care Team (Late st Contact Info) Description 09/24/2020 Iraj Moya [facility] [place] [address] [place] [address] Noreen Flores APRN FRESCO ARTIST [address] [facility] [place] [address] Refill Request (zolpidem (AMBIEN) [...] Date Recorded PHQ-2 Score 2 07/25/2018 [facility] [place] of Occupat ional Health - Occupational Stress [...] as of this encounter Care Teams Electrical Development Engineer Relationship Specialty Start Date End Date Noreen Flores APRN FRESCO ARTIST [address] [place] [address] [place] [address] PCP - General Nurse Practitioner 01/09/19 12/12/21 Sudha Greene, MAURICIO [address] [address] PCP - General 11/01/22 Noreen Flores APRN FRESCO ARTIST [address] [place] [address] [place] [address] Assigned PCP 06/16/18 05/26/22 Kalyan Galvan Personal Advocate & Liaison (PAL) 08/08/19 04/26/21 Lashae Trevino [facility] [address] [place] [address] Pharmacist Pharmacist 10/14/19 12/01/20 Eduardo Sharma MD [address] [place] [address] Assigned Sleep Provider 04/02/2005/07 Marcelo Artis PA-C [address] [address] Assigned Musculoskeletal Provider 08/25/20 08/20/21 Rodrigo Man PA-C [address] [address] Assigned Surgical Provider 08/25/20 11/27/20 Noreen Flores APRN CNP [address] [place] [address] [place] [address] Assigned PCP 08/05/22 03/16/23 Agatha Null DPM, Podiatry/Foot and Ankle Surgery [address] [place] [address] [address] [place] [address] Assigned Musculoskeletal Provider 11/04/22 [facility] - [place] [address] [place] [address] Assigned PCP 07/05/23 12/31/23 documented as of this encounter
--- OUTSIDE RECORDS SUMMARY | 2024-03-27 13:14 | XMS_ITS | Encounter Summary ---
Author Organization [place] Address [address] [place] [address] Care Team Providers Care Chef & Owner Name Role Phone Noreen Flores APRN, CNP Unavailable Noreen Flores APRN, CNP Primary Car e Provider Kalyan Galvan Unavailable Unavailable Lashae Trevino [facility] Unavailable Eduardo Sharma MD Unavailable Rios Monteiro MD Unavailable [phone] Marcelo Artis PA-C Unavailable [phone] Rodrigo Man PA-C Unavailable [phone] Noreen Flores APRN BLADE BENDER FURNACE TENDER Unavailable Sudha Greene NP Primary Care Provider Agatha Null DPM, Podiatry /Foot and Ankle Surgery Unavailable Clinic - [facility] Unavailable Reason for Visit * Reason Comments Medication Refill Encounter Details Date Type Department Care Team (Late st Contact Info) Description 06/18/2020 Refill M [facility] [place] [address] [place] [address] Noreen Flores APRN CNP [address] [facility] [place] [address] Medication Refill Social History [...] PHQ-2 Score 2 07/25/2018 [facility] [place] of Occupat ional Health - Occupational Stress [...] Desirae Champagne RN - 06/18/2020 10:53 AM RAG COLLECTOR Prescription approved per [facility] Refill Protocol. Desirae Champagne RN on 06/18/2020 at 10:52 AM COLLECTOR documented in this encounter Plan of [...] documented as of this encounter Care Teams Chef & Owner Relationship Specialty Start Date End Date Noreen Flores APRN BLADE BENDER FURNACE TENDER [address] [place] [address] [place] [address] PCP - General Nurse Practitioner 01/09/19 12/12/21 Sudha Greene, MAURICIO [address] [address] PCP - General 11/01/22 Noreen Flores APRN BLADE BENDER FURNACE TENDER [address] [place] [address] [place] [address] Assigned PCP 06/16/18 05/26/22 Kalyan Galvan Personal Advocate & Liaison (PAL) 08/08/19 04/26/21 Lashae Trevino, [facility] [address] [place] [address] [place] [address] Pharmacist Pharmacist 10/14/19 12/01/20 Eduardo Sharma MD [address] [place] [address] [place] [address] Assigned Sleep Provider 04/02/2005/07 [place] [address] [facility] [address] [place] [address] Assigned Musculoskeletal Provider 04/02/20 08/24/20 Marcelo Artis PA-C [address] [facility] 300 [place] [address] Assigned Musculoskeletal Provider 08/25/20 08/20/21 Rodrigo Man PA-C [address] [place] [place] [address] Assigned Surgical Provider 08/25/20 11/27/20 Noreen Flores APRN CNP [address] [place] [address] [place] [address] Assigned PCP 08/05/22 03/16/23 Agatha Null DPM, Podiatry/Foot and Ankle Surgery [address] [place] [address] [place] [address] Assigned Musculoskeletal Provider 11/04/22 [facility] - [place] [address] [facility] [place] [address] Assigned PCP 07/05/23 12/31/23 documented as of this encounter
--- OUTSIDE RECORDS SUMMARY | 2024-03-27 13:14 | XMS_ITS | Encounter Summary ---
Author Organization [place] Address [address] [place] [address] Care Team Providers Care Risk Prevention Engineer Name Role Phone Noreen Flores APRN BILINGUAL HR GENERALIST Unavailable Noreen Flores APRN BILINGUAL HR GENERALIST Primary Car e Provider Kalyan Galvan Unavailable Unavailable Lashae Trevino [facility] Unavailable [phone] Eduardo Sharma MD Unavailable Rios Monteiro MD Unavailable [phone] Marcelo Artis PA-C Unavailable Rodrigo Man PA-C Unavailable [phone] Noreen Flores APRN BILINGUAL HR GENERALIST Unavailable Sudha Greene NP Primary Care Provider Agatha Null DPM, Podiatry /Foot and Ankle Surgery Unavailable Clinic - [place] Unavailable Encounter Details Date Type Department Care Team (Late st Contact Info) Description 10/28/2019 [facility] Moya [facility] [place] [address] [place] [address] Noreen Flores APRN BILINGUAL HR GENERALIST [address] [facility] [place] [address] Social History [...] Date Recorded PHQ-2 Score 2 07/25/2018 [facility] [place] of Occupat ional Health - Occupational Stress [...] Total Score: 9 08/09/19 20 7:03 AM SLAG MIXER documented as of this encounter Care Teams Risk Prevention Engineer Relationship Specialty Start Date End Date Jeana-Noreen Miles APRN CNP [address] [facility] [place] [address] PCP - General Nurse Practitioner 01/09/19 12/12/21 Sudha Greene NP [address] [place] [address] PCP - General 11/01/22 Noreen Flores APRN BILINGUAL HR GENERALIST [facility] [place] [address] Assigned PCP 06/16/18 05/26/22 Kalyan Galvan Personal Advocate & Liaison (PAL) 08/08/19 04/26/21 Lashae Trevino, [facility] [address] [place] [address] [place] [address] Pharmacist Pharmacist 10/14/19 12/01/20 Eduardo Sharma MD [address] [place] [address] [place] [address] Assigned Sleep Provider 04/02/2005/07 [place] [address] [address] [place] [address] [place] [address] Assigned Musculoskeletal Provider 04/02/20 08/24/20 Marcelo Artis PA-C [address] [place] [address] [place] [address] Assigned Musculoskeletal Provider 08/25/20 08/20/21 Rodrigo Man PA-C [address] [place] [address] [place] [address] Assigned Surgical Provider 08/25/20 11/27/20 Noreen Flores APRN BILINGUAL HR GENERALIST [facility] [place] [address] Assigned PCP 08/05/22 03/16/23 Agatha Null DPM, Podiatry/Foot and Ankle Surgery [address] [place] [address] Assigned Musculoskeletal Provider 11/04/22 Clinic - [place] [address] [place], [place] [address] [place] [address] Assigned PCP 07/05/23 12/31/23 documented as of this encounter
--- OUTSIDE RECORDS SUMMARY | 2024-03-27 13:14 | XMS_ITS | Encounter Summary ---
Author Organization [place] Address [address] [place] [address] Care Team Providers Care Aircraft Engine Mechanic Supervisor Name Role Phone Noreen Flores APRN SHIP LINER Unavailable Noreen Flores APRN SHIP LINER Primary Car e Provider Kalyan Galvan Unavailable Unavailable Lashae Trevino [facility] Unavailable [phone] Eduardo Sharma MD Unavailable Marcelo Artis PA-C Unavailable Rodrigo Man PA-C Unavailable [phone] Noreen Flores APRN SHIP LINER Unavailable Sudha Greene NP Primary Care Provider Agatha Null DPM, Podiatry /Foot and Ankle Surgery Unavailable Clinic - [facility] [facility] Unavailable Reason for Visit * Reason Onset Date Comments Refill Request 10/05/2020 topiramate (TOPA MAX) 100 MG tablet Encounter Details Date Type Department Care Team (Late st Contact Info) Description 10/05/2020 Refill M [facility] [place] [address] [facility] [place] [address] Noreen Flores APRN SHIP LINER 3[address] [facility] [place] [address] Refill Request (topiramate [...] Answer Date Recorded PHQ-2 Score 2 07/25/2018 [facility] [place] of Occupat ional Health - Occupational Stress [...] as of this encounter Care Teams Aircraft Engine Mechanic Supervisor Relationship Specialty Start Date End Date Noreen Flores APRN SHIP LINER [address] [place] [address] [place] [address] PCP - General Nurse Practitioner 01/09/19 12/12/21 Sudha Greene NP [address] [address] PCP - General 11/01/22 Noreen Flores APRN SHIP LINER [address] [place] [address] [place] [address] Assigned PCP 06/16/18 05/26/22 Van, Alfredo Personal Advocate & Liaison (PAL) 08/08/19 04/26/21 Lashae Trevino, [facility] 14[address] [facility] [place] [address] Pharmacist Pharmacist 10/14/19 12/01/20 Eduardo Sharma MD [address] [place] [address] [place], [place] [address] Assigned Sleep Provider 04/02/2005/07 Marcelo Artis PA-C [address] [facility] [place] [address] [place] [address] Assigned Musculoskeletal Provider 08/25/20 08/20/21 Rodrigo Man PA-C [address] [place] [address] [place] [address] Assigned Surgical Provider 08/25/20 11/27/20 Noreen Flores APRN CNP [address] [place] [address] [place] [address] Assigned PCP 08/05/22 03/16/23 Agatha Null DPM, Podiatry/Foot and Ankle Surgery [address] [place] [address] [facility] 300 [place] [address] Assigned Musculoskeletal Provider 11/04/22 [facility] - [place] [facility] 3305 [facility] [place] [address] Assigned PCP 07/05/23 12/31/23 documented as of this encounter
--- OUTSIDE RECORDS SUMMARY | 2024-03-27 13:14 | XMS_ITS | Encounter Summary ---
Author Organization [place] Address [address] [place] [address] Care Team Providers Care Semi Conductor Assembler Name Role Phone Noreen Flores APRN CELL TUBER MACHINE Unavailable Noreen Flores APRN CELL TUBER MACHINE Primary Car e Provider Kalyan Galvan Unavailable Unavailable Lashae Trevino [facility] Unavailable Eduardo Sharma MD Unavailable Marcelo Artis PA-C Unavailable [phone] Rodrigo Man PA-C Unavailable [phone] Noreen Flores APRN CELL TUBER MACHINE Unavailable Sudha Greene NP Primary Care Provider Agatha NullM, Podiatry /Foot and Ankle Surgery Unavailable [facility] [place] Unavailable Encounter Details [...] Answer Date Recorded PHQ-2 Score 2 07/25/2018 [facility] [place] of Occupat ional Health - Occupational Stress [...] documented as of this encounter Care Teams Semi Conductor Assembler Relationship Specialty Start Date End Date Noreen Flores APRN CELL TUBER MACHINE [address] [place] [address] [place] [address] PCP - General Nurse Practitioner 01/09/19 12/12/21 Sudha Greene NP [address] [address] PCP - General 11/01/22 Noreen Flores APRN CELL TUBER MACHINE [address] [place] [address] [place] [address] Assigned PCP 06/16/18 05/26/22 Kalyan Galvan Personal Advocate & Liaison (PAL) 08/08/19 04/26/21 [facility] [address] [place] [address] [place] [address] Pharmacist Pharmacist 10/14/19 12/01/20 Eduardo Sharma MD [address] [place] [address] [place] [address] Assigned Sleep Provider 04/02/2005/07 Marcelo Artis PA-C [address] [place] [address] [place] [address] [place] [address] Assigned Musculoskeletal Provider 08/25/20 08/20/21 Rodrigo Man PA-C [address] [place] [address] [place] [address] Assigned Surgical Provider 08/25/20 11/27/20 Noreen Flores APRN CELL TUBER MACHINE 3305 [facility] [place] [address] Assigned PCP 08/05/22 03/16/23 Agatha Null DPM, Podiatry/Foot and Ankle Surgery [address] [place] [address] Assigned Musculoskeletal Provider 11/04/22 Clinic - [facility] 3301 [facility] [place] [address] Assigned PCP 07/05/23 12/31/23 documented as of this encounter
--- OUTSIDE RECORDS SUMMARY | 2024-03-27 13:14 | XMS_ITS | Encounter Summary ---
Author Organization [place] Address [address] [place] [address] Care Team Providers Care Hydraulic Design Engineer Name Role Phone Noreen Flores APRN MANAGER BUDGET Unavailable Noreen Flores APRN MANAGER BUDGET Primary Car e Provider Kalyan Galvan Unavailable Unavailable Lashae Trevino [facility] Unavailable [phone] Eduardo Sharma MD Unavailable Marcelo Artis PA-C Unavailable Rodrigo Man PA-C Unavailable [phone] Noreen Flores APRN MANAGER BUDGET Unavailable Sudha Greene NP Primary Care Provider Agatha NullM, Podiatry /Foot and Ankle Surgery Unavailable [facility] [place] [...] PHQ-2 Score 2 07/25/2018 [facility] [place] of Occupat ional Health - Occupational Stress [...] documented as of this encounter Care Teams Hydraulic Design Engineer Relationship Specialty Start Date End Date Noreen Flores APRN MANAGER BUDGET [address] [facility] [place] [address] PCP - General Nurse Practitioner 01/09/19 12/12/21 Sudha Greene NP [address] [address] PCP - General 11/01/22 Noreen Flores APRN MANAGER BUDGET [address] [place] [address] [place] [address] Assigned PCP 06/16/18 05/26/22 Kalyan Galvan Personal Advocate & Liaison (PAL) 08/08/19 04/26/21 Lashae Trevino [facility] [place] [id number] Pharmacist Pharmacist 10/14/19 12/01/20 Eduardo Sharma MD [address] [place] [id number] Assigned Sleep Provider 04/02/2005/07 Marcelo Artis PA-C [address] [facility] [place] [place], [place] [address] Assigned Musculoskeletal Provider 08/25/20 08/20/21 Rodrigo Man PA-C [address] [place] [place] [address] Assigned Surgical Provider 08/25/20 11/27/20 Noreen Flores APRN MANAGER BUDGET [address] [facility] [place] [address] Assigned PCP 08/05/22 03/16/23 Agatha Null DPM, Podiatry/Foot and Ankle Surgery [address] [place] [address] Assigned Musculoskeletal Provider 11/04/22 [facility] - [facility] [place] 3307 [facility] [place] [id number] Assigned PCP 07/05/23 12/31/23 documented as of this encounter
--- OUTSIDE RECORDS SUMMARY | 2024-03-27 13:14 | XMS_ITS | Encounter Summary ---
Author Organization [place] Address [address] [place] [address] Care Team Providers Care Gem Setter Name Role Phone Noreen Flores APRN VEGETABLE INSPECTOR Unavailable Noreen Flores APRN VEGETABLE INSPECTOR Primary Car e Provider Kalyan Galvan Unavailable Unavailable Lashae Trevino [facility] Unavailable [phone] Eduardo Sharma MD Unavailable Rios Monteiro MD Unavailable Marcelo Artis PA-C Unavailable [phone] Rodrigo Man PA-C Unavailable [phone] Noreen Flores APRN VEGETABLE INSPECTOR Unavailable Sudha Greene NP Primary Care Provider [phone] Agatha Null DPM, Podiatry /Foot and Ankle Surgery Unavailable Clinic - [place] [facility] Unavailable Encounter Details Date Type Department Care Team (Late st Contact Info) Description 12/23/[address] [facility] [address] [facility] [place] [address] [facility] [address] [place] [address] Noreen Flores APRN VEGETABLE INSPECTOR 8605 [facility] [place] [address] Chronic seasonal allergic [...] Friends and Family Patient declined 08/08/2019 Attends [employer] Patient declined 07/13 Active Member of [...] Answer Date Recorded PHQ-2 Score 2 07/25/2018 [facility] [place] of Occupat ional Health - Occupational Stress [...] 2:11 PM CDT Please call [facility] in [facility] and find out why they are having [...] Total Score: 9 08/09/19 20 7:03 AM SILK WEAVER documented as of this encounter Care Teams Gem Setter Relationship Specialty Start Date End Date Noreen Flores APRN VEGETABLE INSPECTOR [address] [place] [address] [place] [address] PCP - General Nurse Practitioner 01/09/19 12/12/21 Sudha Greene NP [address] [address] PCP - General 11/01/22 Noreen Flores APRN VEGETABLE INSPECTOR [address] [place] [address] [place] [address] Assigned PCP 06/16/18 05/26/22 Kalyan Galvan Personal Advocate & Liaison (PAL) 08/08/19 04/26/21 [facility] [address] [place] [address] [place] [address] Pharmacist Pharmacist 10/14/19 12/01/20 Eduardo Sharma MD [address] [address] Assigned Sleep Provider 04/02/2005/07 Rios Monteiro MD [address] [place] [address] Assigned Musculoskeletal Provider 04/02/20 08/24/20 Marcelo Artis PA-C [address] [address] Assigned Musculoskeletal Provider 08/25/20 08/20/21 Rodrigo Man PA-C [address] [place] [address] Assigned Surgical Provider 08/25/20 11/27/20 Noreen Flores APRN VEGETABLE INSPECTOR 3305 [facility] [place] [address] Assigned PCP 08/05/22 03/16/23 Agatha Null DPM, Podiatry/Foot and Ankle Surgery [address] [place] [place] [address] Assigned Musculoskeletal Provider 11/04/22 [facility] - [place] [facility] [address] [facility] [place] [id number] Assigned PCP 07/05/23 12/31/23 documented as of this encounter
--- OUTSIDE RECORDS SUMMARY | 2024-03-27 13:14 | XMS_ITS | Encounter Summary ---
Author Organization [place] Address [address] [place] [address] Care Team Providers Care Die Out Worker Name Role Phone Noreen Flores APRN MOLD CARRIER Unavailable Noreen Flores APRN MOLD CARRIER Primary Car e Provider Kalyan Galvan Unavailable Unavailable Lashae Trevino [facility] Unavailable Eduardo Sharma MD Unavailable Rios Monteiro MD Unavailable [phone] Marcelo Artis PA-C Unavailable Rodrigo ManC Unavailable [phone] Noreen Flores APRN MOLD CARRIER Unavailable Sudha Greene NP Primary Care Provider Agatha Null DPM, Podiatry /Foot and Ankle Surgery Unavailable Clinic - [place] [facility] Unavailable Encounter Details Date Type Department Care Team (Late st Contact Info) Description 10/14/2019 [facility] Lucy Moya [facility] [address] [place] [address] [facility] [address] [place] [address] Lashae Trevino, [facility] 1440 [facility] [place] [address] Social History Tobacco Use [...] Score 2 07/25/2018 [facility] [place] of Occupat ional Health - Occupational Stress [...] Total Score: 9 08/09/19 20 7:03 AM GAS SPECIALIST documented as of this encounter Care Teams Die Out Worker Relationship Specialty Start Date End Date Noreen Flores APRN MOLD CARRIER [address] [place] [address] [place] [address] PCP - General Nurse Practitioner 01/09/19 12/12/21 Sudha Greene, MAURICIO [address] [address] PCP - General 11/01/22 Noreen Flores APRN MOLD CARRIER [address] [place] [address] [place] [address] Assigned PCP 06/16/18 05/26/22 Kalyan Galvan Personal Advocate & Liaison (PAL) 08/08/19 04/26/21 Lashae Trevino, [facility] [address] [place] [address] Pharmacist Pharmacist 10/14/19 12/01/20 Eduardo Sharma MD [address] [place] [address] Assigned Sleep Provider 04/02/2005/07 [place] [address] [facility] 300 [place] [address] Assigned Musculoskeletal Provider 04/02/20 08/24/20 Marcelo Artis PA-C [address] [facility] 300 [place] [address] Assigned Musculoskeletal Provider 08/25/20 08/20/21 Rodrigo Man PA-C [address] [facility] 450 [place], [place] [address] Assigned Surgical Provider 08/25/20 11/27/20 Noreen Flores APRN MOLD CARRIER 3305 [facility] [place] [address] Assigned PCP 08/05/22 03/16/23 Agatha Null DPM, Podiatry/Foot and Ankle Surgery [address] [place] [address] 300 [place] [address] Assigned Musculoskeletal Provider 11/04/22 [facility] - [place] [facility] 3305 [facility] [place] [id number] Assigned PCP 07/05/23 12/31/23 documented as of this encounter
--- OUTSIDE RECORDS SUMMARY | 2024-03-27 13:14 | XMS_ITS | Encounter Summary ---
Author Organization [facility] Address [address] [place] [address] Care Team Providers Care Assembler Arranger Name Role Phone Noreen Flores APRN STUDIO ASSISTANT Unavailable Noreen Flores APRN STUDIO ASSISTANT Primary Car e Provider Kalyan Galvan Unavailable Unavailable Lashae Trevino [facility] Unavailable [phone] Eduardo Sharma MD Unavailable Rios Monteiro MD Unavailable Marcelo Artis PA-C Unavailable [phone] Rodrigo Man PA-C Unavailable [phone] Noreen Flores APRN STUDIO ASSISTANT Unavailable Sudha Greene NP Primary Care Provider [phone] Agatha Null DPM, Podiatry /Foot and Ankle Surgery Unavailable Clinic - [place] [place] Unavailable Encounter Details Date Type Department Care Team (Late st Contact Info) Description 10/06/2019 [facility] Lucy Moya [facility] Neuro[facility] [address] [address] Patricia Bonilla Social History Tobacco [...] PHQ-2 Score 2 07/25/2018 [facility] [place] of Occupat ional Health - Occupational Stress [...] Total Score: 9 08/09/19 20 7:03 AM OPTICAL LENS MANUFACTURING TECH documented as of this encounter Care Teams Assembler Arranger Relationship Specialty Start Date End Date Noreen Flores APRN STUDIO ASSISTANT [address] [place] [address] [place] [address] PCP - General Nurse Practitioner 01/09/19 12/12/21 Sudha Greene NP [address] [address] PCP - General 11/01/22 Noreen Flores APRN STUDIO ASSISTANT [address] [place] [address] [place] [address] Assigned PCP 06/16/18 05/26/22 Kalyan Galvan Personal Advocate & Liaison (PAL) 08/08/19 04/26/21 [facility] [address] [facility] [place] [address] Pharmacist Pharmacist 10/14/19 12/01/20 Eduardo Sharma MD [address] [facility] [address] [address] Assigned Sleep Provider 04/02/2005/07 [place] [address] [facility] 300 [place] [address] Assigned Musculoskeletal Provider 04/02/20 08/24/20 Marcelo Artis PA-C [address] [facility] 300 [place] [address] Assigned Musculoskeletal Provider 08/25/20 08/20/21 Rodrigo Man PA-C [address] [facility] 450 [place] [address] Assigned Surgical Provider 08/25/20 11/27/20 Noreen Flores APRN CNP [address] [place] [address] [place] [address] Assigned PCP 08/05/22 03/16/23 Agatha Null DPM, Podiatry/Foot and Ankle Surgery [address] [facility] [place] 300 [place] [address] Assigned Musculoskeletal Provider 11/04/22 [facility] [place] [address] [facility] [place] [id number] Assigned PCP 07/05/23 12/31/23 documented as of this encounter
--- OUTSIDE RECORDS SUMMARY | 2024-03-27 13:14 | XMS_ITS | Encounter Summary ---
Author Organization [facility] Address [address] [place] [address] Care Team Providers Care Ocular Pathologist Name Role Phone Noreen Flores APRN WOOD BOATBUILDER APPRENTICE Unavailable Noreen Flores APRN WOOD BOATBUILDER APPRENTICE Primary Car e Provider Kalyan Galvan Unavailable Unavailable Lashae Trevino [facility] Unavailable [phone] Eduardo Sharma MD Unavailable Marcelo Artis PA-C Unavailable Rodrigo ManC Unavailable [phone] Noreen Flores APRN WOOD BOATBUILDER APPRENTICE Unavailable Sudha Greene NP Primary Care Provider Agatha Null DPM, Podiatry /Foot and Ankle Surgery Unavailable [facility] Unavailable Encounter Details Date Type Department Care Team (Late st Contact Info) Description 10/28/2020 Myra Moya [facility] [place] [address] [facility] [address] [place] [address] Lashae Trevino, [facility] [address] [facility] [place] [address] Social History [...] Friends and Family Patient declined 08/08/2019 Attends Judaism Services Patient declined 07/13 Active Member of [...] Answer Date Recorded PHQ-2 Score 2 07/25/2018 [facility] of Occupat ional Health - Occupational [...] documented as of this encounter Care Teams Ocular Pathologist Relationship Specialty Start Date End Date Noreen Flores APRN WOOD BOATBUILDER APPRENTICE [address] [place] [address] [place] [address] PCP - General Nurse Practitioner 01/09/19 12/12/21 Sudha Greene NP [address] [address] PCP - General 11/01/22 Noreen Flores APRN WOOD BOATBUILDER APPRENTICE [address] [place] [address] [place] [address] Assigned PCP 06/16/18 05/26/22 Kalyan Galvan Personal Advocate & Liaison (PAL) 08/08/19 04/26/21 [facility] [place] [address] Pharmacist Pharmacist 10/14/19 12/01/20 Eduardo Sharma MD [address] [facility] 103 [place] [address] Assigned Sleep Provider 04/02/2005/07 Marcelo Artis PA-C [address] [facility] [place] 300 [place] [address] Assigned Musculoskeletal Provider 08/25/20 08/20/21 Rodrigo Man PA-C [address] [place] [address] [place] [address] Assigned Surgical Provider 08/25/20 11/27/20 Noreen Flores APRN WOOD BOATBUILDER APPRENTICE [address] [facility] [place] [address] Assigned PCP 08/05/22 03/16/23 Agatha Null DPM, Podiatry/Foot and Ankle Surgery [address] [place] [address] [place] [address] Assigned Musculoskeletal Provider 11/04/22 [facility] [address] [facility] [address] [place] [address] Assigned PCP 07/05/23 12/31/23 documented as of this encounter
--- OUTSIDE RECORDS SUMMARY | 2024-03-27 13:14 | XMS_ITS | Encounter Summary ---
Author Organization [facility] Address [address] [place] [address] Care Team Providers Care Flight Agent Name Role Phone Noreen Flores APRN CORRECTIONAL OFFICER CHIEF Unavailable Noreen Flores APRN CORRECTIONAL OFFICER CHIEF Primary Car e Provider Kalyan Galvan Unavailable Unavailable Lashae Trevino [facility] Unavailable Eduardo Sharma MD Unavailable Rios Monteiro MD Unavailable [phone] Marcelo Artis PA-C Unavailable Rodrigo Man PA-C Unavailable [phone] Noreen Flores APRN, CNP Unavailable Sudha Greene [...] st Contact Info) Description 06/14/2020 [facility] [address] [facility] [address] [place] [address] Jeana-Noreen Miles, DICTAPHONE OPERATOR CORRECTIONAL OFFICER CHIEF 3305 [facility] [place] [address] Refill Request (blood glucose monitoring (ONE TOUCH [...] Answer Date Recorded PHQ-2 Score 2 07/25/2018 [facility] [place] of Occupat ional Health - Occupational Stress [...] Christy Pelayo RN - 06/16/2020 11:04 AM CUT OFF SAW OPERATOR Prescription approved per [facility] Refill Protocol. Christy Pelayo RN Flex OFF SAW OPERATOR * Telephone Encounter - Candy Wilda - 06/14/2020 3:55 PM CST Request from pharmacy states: ONE TOUCH VERIO TEST STRIPS and ONE TOUCH 30G DELICA LNC, OFF SAW OPERATOR documented in this encounter Plan [...] as of this encounter Care Teams Flight Agent Relationship Specialty Start Date End Date Jeana-Noreen Miles APRN CORRECTIONAL OFFICER CHIEF [address] [place] [address] [place] [address] PCP - General Nurse Practitioner 01/09/19 12/12/21 Sudha Greene NP [facility] & [address] [address] PCP - General 11/01/22 Noreen Flores APRN CORRECTIONAL OFFICER CHIEF [address] [place] [address] [place] [address] Assigned PCP 06/16/18 05/26/22 Kalyan Galvan Personal Advocate & Liaison (PAL) 08/08/19 04/26/21 [facility] [address] [place] [address] [place] [address] Pharmacist Pharmacist 10/14/19 12/01/20 Eduardo Sharma MD [address] [place] [address] [place] [address] Assigned Sleep Provider 04/02/2005/07 [place] [address] [facility] [address] [place] [address] [place] [address] Assigned Musculoskeletal Provider 04/02/20 08/24/20 Marcelo Artis PA-C [address] [place] [address] [place] [address] Assigned Musculoskeletal Provider 08/25/20 08/20/21 Rodrigo Man PA-C [address] [place] [address] [place], [place] [address] Assigned Surgical Provider 08/25/20 11/27/20 Noreen Flores APRN CORRECTIONAL OFFICER CHIEF [facility]5 [facility] [facility] [place] [address] Assigned PCP 08/05/22 03/16/23 Agatha Null, MARÍA, Podiatry/Foot and Ankle Surgery [address] [place] [address] Assigned Musculoskeletal Provider 11/04/22 [facility] [address] [place] [address] Assigned PCP 07/05/23 12/31/23 documented as of this encounter
--- OUTSIDE RECORDS SUMMARY | 2024-03-27 13:14 | XMS_ITS | Encounter Summary ---
Author Organization [facility] Address [address] [place] [address] Care Team Providers Care High School Social Studies Tutor Name Role Phone Noreen Flores APRN, CNP Unavailable Noreen Flores APRN, CNP Primary Car e Provider Kalyan Galvan Unavailable Unavailable Lashae Trevino [facility] Unavailable Eduardo Sharma MD Unavailable Rios Monteiro MD Unavailable Marcelo Artis PA-C Unavailable Rodrigo Man PA-C Unavailable [phone] Noreen Flores APRN POWER TECHNICIAN Unavailable Sudha Greene NP Primary Care Provider Agatha Null DPM, Podiatry /Foot and Ankle Surgery Unavailable Clinic - [place] [facility] Unavailable Reason for Visit * Reason Onset Date Comments Outreach 12/09/2019 Encounter Details Date Type Department Care Team (Late st Contact Info) Description 12/09/[address] [facility] [place] [address] [facility] [address] [place] [address] Noreen Flores APRN CNP 3305 [facility] [place] [id number] Outreach Social History Tobacco Use Types Packs/Day [...] Answer Date Recorded PHQ-2 Score 2 07/25/2018 [facility] [place] of Occupat ional Health - Occupational Stress [...] Called pharmacy noted that pt did not seed cone picker the Imitrex 50 mg. Additionally, pharmacy requested that an order be faxed for the Loratadine-d as the e-prescribe didnot transmit to them. Fax number: [phone] Kalyan Galvan, EMT at 9:53 AM on December 11, 2019 [facility] Guide [phone] documented in this encounter Plan of Treatment [...] Total Score: 9 08/09/19 20 7:03 AM CONTROL VALVE MECHANIC documented as of this encounter Care Teams High School Social Studies Tutor Relationship Specialty Start Date End Date Noreen Flores APRN POWER TECHNICIAN [address] [place] [address] [place] [address] PCP - General Nurse Practitioner 01/09/19 12/12/21 Sudha Greene NP [address] [address] PCP - General 11/01/22 Noreen Flores APRN POWER TECHNICIAN [address] [place] [address] [place] [address] Assigned PCP 06/16/18 05/26/22 Kalyan Galvan Personal Advocate & Liaison (PAL) 08/08/19 04/26/21 Lashae Trevino, [facility] 1440 [facility] [place] [address] Pharmacist Pharmacist 10/14/19 12/01/20 Eduardo Sharma MD [address] [place] [address] [place] [address] Assigned Sleep Provider 04/02/2005/07 [place] [address] [place] [address] [place] [address] Assigned Musculoskeletal Provider 04/02/20 08/24/20 Marcelo Artis PA-C [address] [place] [address] [place] [address] Assigned Musculoskeletal Provider 08/25/20 08/20/21 Rodrigo Man PA-C [address] [place] [address] [place] [address] Assigned Surgical Provider 08/25/20 11/27/20 Noreen Flores APRN POWER TECHNICIAN 3305 [facility] [place] [address] Assigned PCP 08/05/22 03/16/23 Agatha Null, DPM, Podiatry/Foot and Ankle Surgery [address] [facility] 300 [place] [address] Assigned Musculoskeletal Provider 11/04/22 [facility] [place] [address] [place] [address] Assigned PCP 07/05/23 12/31/23 documented as of this encounter
--- OUTSIDE RECORDS SUMMARY | 2024-03-27 13:14 | XMS_ITS | Encounter Summary ---
Author Organization [facility] Address [address] [place] [address] Care Team Providers Care Pricing Clerk Name Role Phone Noreen Flores APRN, CNP Unavailable Noreen Flores APRN, CNP Primary Car e Provider Kalyan Galvan Unavailable Unavailable Lashae Trevino [facility] Unavailable Eduardo Sharma MD Unavailable Rios Monteiro MD Unavailable [phone] Marcelo Artis PA-C Unavailable [phone] Rodrigo Man PA-C Unavailable [phone] Noreen Flores APRN, CNP Unavailable Sudha Greene NP Primary Care Provider Agatha Null DPM, Podiatry /Foot and Ankle Surgery Unavailable Clinic - [facility] Unavailable Reason for Visit * Reason Onset Date Comments Refill Request 05/29/2020 omeprazole (PRIL OSEC) [address] capsule Encounter Details Date Type Department Care Team (Late st Contact Info) Description 05/29/2020 Refill M [facility] 3[address] [facility] [address] [place] [address] Noreen Flores APRN CNP [address] [facility] [address] Refill Request (omeprazole (PRILOSEC) [address] [...] Score 2 07/25/2018 [facility] [place] of Occupat ional Health - Occupational Stress [...] Keyona Mantilla RN - 05/31/2020 10:42 AM SNUFF CONTAINER INSPECTOR Patient has refills remaining with requesting pharmacy. Keyona Palacios - Registered Nurse [facility] F CONTAINER INSPECTOR * Telephone Encounter - Kartik Javier - 05/29/2020 5:01 PM CST Alternative Requested: Insurance covers max 90 days in a year. Please submit PA to continue therapy. F CONTAINER INSPECTOR documented in this encounter Plan of [...] documented as of this encounter Care Teams Pricing Clerk Relationship Specialty Start Date End Date Noreen Flores APRN CELLOPHANE TESTER [address] [place] [address] [place] [address] PCP - General Nurse Practitioner 01/09/19 12/12/21 Sudha Greene NP [address] [address] PCP - General 11/01/22 Noreen Flores APRN CELLOPHANE TESTER [address] [place] [address] [place] [address] Assigned PCP 06/16/18 05/26/22 Kalyan Galvan Personal Advocate & Liaison (PAL) 08/08/19 04/26/21 Lashae Trevino, [facility] 1440 [facility] [place] [address] Pharmacist Pharmacist 10/14/19 12/01/20 Eduardo Sharma MD [address] [place] [address] [place] [address] Assigned Sleep Provider 04/02/2005/07 [place] [address] [place] [address] [place] [address] Assigned Musculoskeletal Provider 04/02/20 08/24/20 Marcelo Artis PA-C [address] [place] [address] [place], [place] [address] Assigned Musculoskeletal Provider 08/25/20 08/20/21 Rodrigo Man PA-C [address] [place] [address] [place] [address] Assigned Surgical Provider 08/25/20 11/27/20 Noreen Flores APRN CELLOPHANE TESTER 3305 [facility] [place] [address] Assigned PCP 08/05/22 03/16/23 Agatha Null, DPM, Podiatry/Foot and Ankle Surgery [address] [facility] 300 [place] [address] Assigned Musculoskeletal Provider 11/04/22 [facility] [place] [address] [place] [address] Assigned PCP 07/05/23 12/31/23 documented as of this encounter
--- OUTSIDE RECORDS SUMMARY | 2024-03-27 13:14 | XMS_ITS | Encounter Summary ---
Author Organization [facility] Address [address] [place] [address] Care Team Providers Care Flour Distributor Name Role Phone Noreen Flores APRN MANUFACTURING PROJECT ENGINEER Unavailable Noreen Flores APRN MANUFACTURING PROJECT ENGINEER Primary Car e Provider Kalyan Galvan Unavailable Unavailable Lashae Trevino [facility] Unavailable [phone] Eduardo Sharma MD Unavailable Rios Monteiro MD Unavailable Marcelo Artis PA-C Unavailable [phone] Rodrigo Man PA-C Unavailable [phone] Noreen Flores APRN MANUFACTURING PROJECT ENGINEER Unavailable Sudha Greene NP Primary Care Provider Agatha Null DPM, Podiatry /Foot and Ankle Surgery Unavailable Clinic - [place] [facility] Unavailable Encounter Details Date Type Department Care Team (Late st Contact Info) Description 07/15/2020 Myra Moya [facility] [place] [address] [facility] [address] [place] [address] Noreen Flores APRN MANUFACTURING PROJECT ENGINEER 3307 [facility] [place] [address] Social History Tobacco [...] Score 2 07/25/2018 [facility] [place] of Occupat ional Health - Occupational Stress [...] COVID-19? No / Unsure 07/17/2020 1:32 PM HOT TAR ROOFER HELPER documented as of this encounter Plan of [...] documented as of this encounter Care Teams Flour Distributor Relationship Specialty Start Date End Date Noreen Flores APRN MANUFACTURING PROJECT ENGINEER [address] [place] [address] [place] [address] PCP - General Nurse Practitioner 01/09/19 12/12/21 Sudha Greene, MAURIC[place] [address] [address] PCP - General 11/01/22 Noreen Flores APRN MANUFACTURING PROJECT ENGINEER [address] [place] [address] [place] [address] Assigned PCP 06/16/18 05/26/22 Kalyan Galvan Personal Advocate & Liaison (PAL) 08/08/19 04/26/21 Lashae Trevino [facility] [address] [place] [address] Pharmacist Pharmacist 10/14/19 12/01/20 Eduardo Sharma MD [address] [place] [address] [place] [address] Assigned Sleep Provider 04/02/2005/07 [place] [address] [address] Assigned Musculoskeletal Provider 04/02/20 08/24/20 Marcelo Artis PA-C [address] [address] Assigned Musculoskeletal Provider 08/25/20 08/20/21 Rodrigo Man PA-C [address] [address] Assigned Surgical Provider 08/25/20 11/27/20 Noreen Flores APRN MANUFACTURING PROJECT ENGINEER [address] [place] [address] [place] [address] Assigned PCP 08/05/22 03/16/23 Agatha Null DPM, Podiatry/Foot and Ankle Surgery [address] [facility] 300 [place] [address] Assigned Musculoskeletal Provider 11/04/22 [facility] [place] [facility] 3305 [facility] [place] [address] Assigned PCP 07/05/23 12/31/23 documented as of this encounter
--- OUTSIDE RECORDS SUMMARY | 2024-03-27 13:14 | XMS_ITS | Encounter Summary ---
Author Organization [facility] Address [address] [place] [address] Care Team Providers Care Phlebotomy Lab Assistant Name Role Phone Noreen Flores APRN, CNP Unavailable Noreen Flores APRN, CNP Primary Car e Provider Kalyan Galvan Unavailable Unavailable Lashae Trevino [facility] Unavailable [phone] Eduardo Sharma MD Unavailable Rios Monteiro MD Unavailable [phone] Marcelo Artis PA-C Unavailable Rodrigo Man PA-C Unavailable [phone] Noreen Flores APRN ENVIRONMENTAL HEALTH AIDE Unavailable Sudha Greene NP Primary Care Provider Agatha Null DPM, Podiatry /Foot and Ankle Surgery Unavailable Clinic - [place] [facility] Unavailable Reason for Visit * Reason Comments Medication Refill Encounter Details Date Type Department Care Team (Late st Contact Info) Description 07/10/2020 Refill M [facility] [place] [address] [facility] [address] [place] [address] Noreen Flores APRN CNP 3305 [facility] [place] [address] Medication Refill Social [...] Answer Date Recorded PHQ-2 Score 2 07/25/2018 [facility] [place] of Occupat ional Health - Occupational Stress [...] Desirae Champagne RN - 07/13/2020 11:10 AM MEDICAL CENTER DIRECTOR Routing refill request to provider for review/approval because: Patient taking 8-10 sumatriptan a month. Desirae Champagne RN on 07/13/2020 at 11:11 AM CAL CENTER DIRECTOR * Telephone Encounter - Lainey Wells - 07/12/2020 2:22 PM CST The pt called back and she says that she takes anywhere from 8-10 a month. Lainey Wells on 07/12/2020 at 2:25 PM CAL CENTER DIRECTOR * Telephone Encounter - Lainey Wells - 07/12/2020 10:59 AM CST 1st attempt l/m. Lainey Wells on 07/12/2020 at 10:59 AM CAL CENTER DIRECTOR * Telephone Encounter - Desirae Champagne RN - 07/12/2020 10:02 AM MEDICAL CENTER DIRECTOR Please call patient and see how many doses of sumatriptan patient has used in the past month. Should be using 8 doses or fewer per month. Desirae Champagne RN on 07/12/2020 at 10:07 AM CAL CENTER DIRECTOR documented in this encounter Plan of [...] as of this encounter Care Teams Phlebotomy Lab Assistant Relationship Specialty Start Date End Date Noreen Flores APRN ENVIRONMENTAL HEALTH AIDE [address] [place] [address] [place] [address] PCP - General Nurse Practitioner 01/09/19 12/12/21 Sudha Greene NP [address] [address] PCP - General 11/01/22 Noreen Flores APRN ENVIRONMENTAL HEALTH AIDE [address] [place] [address] [place] [address] Assigned PCP 06/16/18 05/26/22 Kalyan Galvan Personal Advocate & Liaison (PAL) 08/08/19 04/26/[address] [address] [address] [place] [address] [place] [address] Pharmacist Pharmacist 10/14/19 12/01/20 Eduardo Sharma MD [address] [address] Assigned Sleep Provider 04/02/2005/07 Rios Monteiro MD [address] [place] [address] Assigned Musculoskeletal Provider 04/02/20 08/24/20 Marcelo Artis PA-C [address] [address] Assigned Musculoskeletal Provider 08/25/20 08/20/21 Rodrigo Man PA-C [address] [place] [address] [place] [address] Assigned Surgical Provider 08/25/20 11/27/20 Noreen Flores APRN ENVIRONMENTAL HEALTH AIDE 3[address] [facility] [place] [address] Assigned PCP 08/05/22 03/16/23 Agatha Null DPM, Podiatry/Foot and Ankle Surgery [address] [place] [address] [place] [address] Assigned Musculoskeletal Provider 11/04/22 [facility] - [place] [facility] 3305 [facility] [place] [id number] Assigned PCP 07/05/23 12/31/23 documented as of this encounter
--- OUTSIDE RECORDS SUMMARY | 2024-03-27 13:14 | XMS_ITS | Encounter Summary ---
Author Organization [place] Address [address] [place] [address] Care Team Providers Care Councillor Aboriginal Land Council Name Role Phone Noreen Flores APRN MANAGER SHIPPING Unavailable Noreen Flores APRN MANAGER SHIPPING Primary Car e Provider Kalyan Galvan Unavailable Unavailable Lashae Trevino [facility] Unavailable Eduardo Sharma MD Unavailable Rios Monteiro MD Unavailable Marcelo Artis PA-C Unavailable [phone] Rodrigo Man PA-C Unavailable [phone] Noreen Flores APRN MANAGER SHIPPING Unavailable Sudha Greene NP Primary Care Provider Agatha Null DPM, Podiatry /Foot and Ankle Surgery Unavailable Clinic - [place] [facility] Unavailable Encounter Details Date Type Department Care Team (Late st Contact Info) Description 08/02/2020 [facility] [address] [facility] [address] [place] [address] Lainey Wells Social History Tobacco [...] COVID-19? No / Unsure 07/17/2020 1:32 PM CABLE INSTALLATION TECHNICIAN documented as of this encounter Plan [...] documented as of this encounter Care Teams Councillor Aboriginal Land Council Relationship Specialty Start Date End Date Noreen Flores APRN MANAGER SHIPPING [address] [place] [address] [place] [address] PCP - General Nurse Practitioner 01/09/19 12/12/21 Sudha Greene NP [address] [address] PCP - General 11/01/22 Noreen Flores APRN MANAGER SHIPPING [address] [place] [address] [place] [address] Assigned PCP 06/16/18 05/26/22 Kalyan Galvan Personal Advocate & Liaison (PAL) 08/08/19 04/26/21 [facility] [address] [place] [address] Pharmacist Pharmacist 10/14/19 12/01/20 Eduardo Sharma MD [address] [facility] 103 [place] [address] Assigned Sleep Provider 04/02/2005/07 [place] [address] [facility] 300 [place] [address] Assigned Musculoskeletal Provider 04/02/20 08/24/20 Marcelo Artis PA-C [address] [facility] 300 [place] [address] Assigned Musculoskeletal Provider 08/25/20 08/20/21 Rodrigo Man PA-C [address] [facility] 450 [place] [address] Assigned Surgical Provider 08/25/20 11/27/20 Noreen Flores APRN MANAGER SHIPPING [address] [place] [address] [place] [address] Assigned PCP 08/05/22 03/16/23 Agatha Null DPM, Podiatry/Foot and Ankle Surgery [address] [facility] [address] [place] [address] Assigned Musculoskeletal Provider 11/04/22 [facility] [place] [facility] [address] [place] [address] Assigned PCP 07/05/23 12/31/23 documented as of this encounter
--- OUTSIDE RECORDS SUMMARY | 2024-03-27 13:14 | XMS_ITS | Encounter Summary ---
Author Organization [place] Address [address] [place] [address] Care Team Providers Care Inorganic Chemical Technician Name Role Phone Noreen Flores APRN COMPENSATION ADVISOR Unavailable Noreen Flores APRN COMPENSATION ADVISOR Primary Car e Provider Kalyan Galvan Unavailable Unavailable Lashae Trevino [facility] Unavailable [phone] Eduardo Sharma MD Unavailable Marcelo Artis PA-C Unavailable [phone] Rodrigo Man PA-C Unavailable [phone] Noreen Flores APRN COMPENSATION ADVISOR Unavailable Sudha Greene NP Primary Care Provider Agatha NullM, Podiatry /Foot and Ankle Surgery Unavailable Clinic - [place] [facility] Unavailable Encounter Details Date Type Department Care Team (Late st Contact Info) Description 10/20/2020 Myra Moya [facility] [address] [facility] [address] [place] [address] Lainey [place] Social History Tobacco Use [...] Answer Date Recorded PHQ-2 Score 2 07/25/2018 [facility] of Occupat ional Health - Occupational [...] as of this encounter Care Teams Inorganic Chemical Technician Relationship Specialty Start Date End Date Noreen Flores APRN COMPENSATION ADVISOR [address] [facility] [place] [address] PCP - General Nurse Practitioner 01/09/19 12/12/21 Sudha Greene, MAURICIO [address] [address] PCP - General 11/01/22 Noreen Flores APRN COMPENSATION ADVISOR [address] [place] [address] [place] [address] Assigned PCP 06/16/18 05/26/22 Kalyan Galvan Personal Advocate & Liaison (PAL) 08/08/19 04/26/21 Lashae Trevino [facility] [address] [facility] [place] [address] Pharmacist Pharmacist 10/14/19 12/01/20 Eduardo Sharma MD [address] [place] [address] [place] [address] Assigned Sleep Provider 04/02/2005/07 Marcelo Artis PA-C [address] [facility] [place] [address] [place] [address] Assigned Musculoskeletal Provider 08/25/20 08/20/21 Rodrigo Man PA-C [address] [place] [address] [place] [address] Assigned Surgical Provider 08/25/20 11/27/20 Noreen Flores APRN COMPENSATION ADVISOR [address] [facility] [place] [address] Assigned PCP 08/05/22 03/16/23 Agatha Null, JOAOM, Podiatry/Foot and Ankle Surgery [address] [place] [address] Assigned Musculoskeletal Provider 11/04/22 [facility] [place] [facility] [address] [facility] [place] [id number] Assigned PCP 07/05/23 12/31/23 documented as of this encounter
--- OUTSIDE RECORDS SUMMARY | 2024-03-27 13:15 | XMS_ITS | Encounter Summary ---
Author Organization [place] Address [address] [place] [address] Care Team Providers Care Staging Technician Name Role Phone Vanda Guerrero MD Primary Care Provider [phone] Noreen Flores APRN DOOR MAKER Unavailable Noreen Flores APRN DOOR MAKER Primary Car e Provider Kalyan Galvan Unavailable Unavailable Lashae Trevino [facility] Unavailable Eduardo Sharma MD Unavailable Rios Monteiro MD Unavailable Marcelo Artis PA-C Unavailable Rodrigo Man PA-C Unavailable [phone] Noreen Flores APRN DOOR MAKER Unavailable Sudha Greene NP Primary Care Provider [phone] Agatha Null DPM, Podiatry /Foot and Ankle Surgery Unavailable [facility] - [place] [facility] Unavailable Encounter Details Date Type Department Care Team (Late st Contact Info) Description 12/05/2018 Myra Moya [facility] [place] [address] [facility] [address] [place] [address] Noreen Flores APRN DOOR MAKER [address] [facility] [place] [address] Social History Tobacco Use Types Packs/Day Years [...] Total Score: 7 06/25/19 19 9:49 AM WOOL FLEECE GRADER documented as of this encounter Care Teams Staging Technician Relationship Specialty Start Date End Date Vanda Guerrero MD [address] [facility] [place] [address] PCP - General Internal Medicine 04/08/15 01/08/19 Noreen Flores APRN DOOR MAKER [address] [place] [address] [place] [address] PCP - General Nurse Practitioner 01/09/19 12/12/21 Sudha Greene NP [address] [address] PCP - General 11/01/22 Noreen Flores APRN DOOR MAKER [address] [place] [address] [place] [address] Assigned PCP 06/16/18 05/26/22 Kalyan Galvan Personal Advocate & Liaison (PAL) 08/08/19 04/26/21 Lashae Trevino, [facility] [facility] [place] [address] Pharmacist Pharmacist 10/14/19 12/01/20 Eduardo Sharma MD [address] [place] [address] [place], [place] [address] Assigned Sleep Provider 04/02/2005/07 [place] [address] [facility] 300 [place] [address] Assigned Musculoskeletal Provider 04/02/20 08/24/20 Marcelo Artis PA-C [address] [facility] 300 [place] [address] Assigned Musculoskeletal Provider 08/25/20 08/20/21 Rodrigo Man PA-C [address] [place] 450 [place] [address] Assigned Surgical Provider 08/25/20 11/27/20 Noreen Flores APRN DOOR MAKER [address] [facility] [place] [address] Assigned PCP 08/05/22 03/16/23 Agatha Null, DPM, Podiatry/Foot and Ankle Surgery [address] [facility] 300 [place], [place] [address] Assigned Musculoskeletal Provider 11/04/22 [facility] [place] [address] [place] [address] Assigned PCP 07/05/23 12/31/23 documented as of this encounter
--- OUTSIDE RECORDS SUMMARY | 2024-03-27 13:15 | XMS_ITS | Encounter Summary ---
Author Organization [place] Address [address] [place] [address] Care Team Providers Care Solid Tire Finisher Name Role Phone Vanda Guerrero MD Primary Care Provider [phone] Vanda Guerrero MD Unavailable [phone] Jeana-JdNoreen castro APRN ENVIRONMENTAL ENGINEERING TECHNICIAN Unavailable [facility]-Noreen Miles APRN ENVIRONMENTAL ENGINEERING TECHNICIAN Unavailable [facility]-JdNoreen castro TRIAL EXAMINER ENVIRONMENTAL ENGINEERING TECHNICIAN Primary Car e Provider Kalyan Galvan Unavailable Unavailable Lashae Trevino [facility] Unavailable [phone] Eduardo Sharma MD Unavailable Rios Monteiro MD Unavailable [phone] Marcelo Artis PA-C Unavailable Rodrigo Man-C Unavailable Jeana-Noreen Miles APRN ENVIRONMENTAL ENGINEERING TECHNICIAN Unavailable Sudha Greene NP Primary Care Provider [phone] Agatha Null DPM, Podiatry /Foot and Ankle Surgery Unavailable [facility] [place] [facility] Unavailable Reason for Referral * Diagnostic Imaging Ultrasound - Closed Specialty Diagnoses / Procedures Referred By Rylie garcia Referred To Contact Radiology. Diagnoses Alkaline phosphatase elevation Procedures US Abdomen Limited Vanda Guerrero MD [address] [facility] [place] [address] Rh Ultrasound [facility] [address] [place] [address] Referral ID Status Reason Start Date Expiration Date Visits Re quested Visits Authorized [id number] Closed 06/15/2017 06/15/2018 1 1 ESSIVE ART THERAPIST Reason for Visit * Reason Onset Date Comments Lab Result Notice 06/15/2017 response to 06/12/17 result note Encounter Details Date Type Department Care Team (Late st Contact Info) Description 06/15/2017 MyC Medical Advice [facility] [address] [facility] [address] [place], [place] [phone] [place] [address] [place] [address] [place] [address] Lab Result Notice (response to 06/12/17 resu... [...] Kallie Celaya RN - 06/15/2017 4:26 PM EXPRESSIVE ART THERAPIST Sent mSchool message. ESSIVE ART THERAPIST * Telephone Encounter - Vanda Guerrero MD - 06/15/2017 2:48 PM EXPRESSIVE ART THERAPIST Orders placed - please let patient know. ESSIVE ART THERAPIST * Telephone Encounter - Kallie Celaya RN - 06/15/2017 2:31 PM EXPRESSIVE ART THERAPIST Patient ok to restart Metformin & for US. T'd up. Please advise. ESSIVE ART THERAPIST documented in this encounter Plan of Treatment Not on file documented as of this encounter Results * US Abdomen Limited (06/21/2017 10:11 AM EXPRESSIVE ART THERAPIST) Anatomical Region Laterality Modality Abdomen/Pelvis Ultrasound Impressions 06/21/2017 10:49 AM EXPRESSIVE ART THERAPIST IMPRESSION: ??Fatty infiltration of the liver. No gallstones or bile duct dilatation. BRIDGETTE LOZA MD Narrative 06/21/2017 10:49 AM EXPRESSIVE ART THERAPIST ULTRASOUND ABDOMEN LIMITED 06/21/2017 10:11 AM HISTORY: [...] Depression Total Score: 12 018 1:02 PM EXPRESSIVE ART THERAPIST documented as of this encounter Care Teams Solid Tire Finisher Relationship Specialty Start Date End Date Vanda Guerrero MD [address] [place] [address] [place] [address] PCP - General Internal Medicine 04/08/15 01/08/19 Vanda Guerrero MD [address] [place] [address] [place] [address] PCP - Assigned PCP 07/24/16 06/15/18 Noreen Flores APRN ENVIRONMENTAL ENGINEERING TECHNICIAN [address] [place] [address] [place] [address] PCP - Assigned PCP 06/16/18 08/13/18 Noreen Flores APRN ENVIRONMENTAL ENGINEERING TECHNICIAN [address] [place] [address] [place] [address] PCP - General Nurse Practitioner 01/09/19 12/12/21 Sudha Greene, MAURICIO [address] [address] PCP - General 11/01/22 Noreen Flores APRN ENVIRONMENTAL ENGINEERING TECHNICIAN [address] [place] [address] [place] [address] Assigned PCP 06/16/18 05/26/22 Kalyan Galvan Personal Advocate & Liaison (PAL) 08/08/19 04/26/21 Lashae Trevino, [facility] [address] [place] [address] Pharmacist Pharmacist 10/14/19 12/01/20 Eduardo Sharma MD [address] [place] [address] [place] [address] Assigned Sleep Provider 04/02/2005/07 [place] [address] [facility] 300 [place] [address] Assigned Musculoskeletal Provider 04/02/20 08/24/20 Marcelo Artis PA-C [address] [facility] 300 [place] [address] Assigned Musculoskeletal Provider 08/25/20 08/20/21 Rodrigo Man PA-C [address] [place] [address] [place] [address] Assigned Surgical Provider 08/25/20 11/27/20 Noreen Flores APRN CNP [address] [place] [address] [place] [address] Assigned PCP 08/05/22 03/16/23 Agatha Null DPM, Podiatry/Foot and Ankle Surgery [address] [place] [address] [place] [address] Assigned Musculoskeletal Provider 11/04/22 [facility] [place] [facility] [address] [facility] [place] [address] Assigned PCP 07/05/23 12/31/23 documented as of this encounter
--- OUTSIDE RECORDS SUMMARY | 2024-03-27 13:15 | XMS_ITS | Encounter Summary ---
Author Organization [place] Address [address] [place] [address] Care Team Providers Care Inspection And Testing Supervisor Name Role Phone Noreen Flores APRN, CNP Unavailable Noreen Flores APRN, CNP Primary Car e Provider Kalyan Galvan Unavailable Unavailable Lashae Trevino [facility] Unavailable [phone] Eduardo Sharma MD Unavailable Rios Monteiro MD Unavailable [phone] Marcelo Artis PA-C Unavailable Rodrigo Man PA-C Unavailable [phone] Noreen Flores APRN, CNP Unavailable Sudha Greene NP Primary Care Provider [phone] Agatha Null DPM, Podiatry /Foot and Ankle Surgery Unavailable Clinic - [place] [facility] Unavailable Reason for Visit * Reason Onset Date Comments Refill Request 08/08/2019 DULoxetine (CYMB EDIN) 30 MG capsule Encounter Details Date Type Department Care Team (Late st Contact Info) Description 08/08/2019 Refill [facility] [address] [facility] [address] [place] [address] Noreen Flores APRN CNP [address] [facility] [place] [address] Refill Request (DULoxetine (CYMBALTA) 30 MG capsule) [...] Friends and Family Patient declined 08/08/2019 Attends [employer] Patient declined 07/13 Active Member of [...] Recorded PHQ-2 Score 2 07/25/2018 [facility] of Occupat ional Health - Occupational Stress [...] Radha Manning RN - 08/13/2019 10:02 AM TYPESETTING MACHINE TENDER Noreen: I spoke with the Pt. The Pt has been taking 1, 30 mg capsule, once per day. She does not want to goup to 60 mg. Yasmin sent this in for her. Radha Manning RN [facility] -- Triage Nurse SETTING MACHINE TENDER * Telephone Encounter - Noreen Hills APRN CNP - 08/11/2019 9:41 AM CST Please verify that she was previously taking 1 tab twice a day. If so, please switch it to 1, 60mg tab, once per day. Pls notify her of the change. SETTING MACHINE TENDER * Telephone Encounter - Gayathir Mcallister RN - 08/11/2019 9:38 AM TYPESETTING MACHINE TENDER Please review sig for duloxetine, hydrochlorothiazide and metformin ( per review of last office visit 2000 mg daily of metformin, I am not sure about Duloxetine sig and dispense amount, Thank you) Gayathri Mcallister RN Message handled by Nurse Triage. SETTING MACHINE TENDER * Telephone Encounter - Kartik Javier - 08/08/2019 5:46 PM CST Also Review Rx directions for Metformin hydrochloride 500 mg. Pharmacy is requesting clarification. SETTING MACHINE TENDER * Telephone Encounter - Kartik Javier - 08/08/2019 2:39 PM CST Script Clarification: Rx has two sets of directions. Please send new Rx with the Proper Directions. Thanks. SETTING MACHINE TENDER documented in this encounter Plan [...] Total Score: 9 08/09/19 20 7:03 AM TYPESETTING MACHINE TENDER documented as of this encounter Care Teams Inspection And Testing Supervisor Relationship Specialty Start Date End Date Noreen Flores APRN MID LEVEL BUSINESS ANALYST [address] [place] [address] [place] [address] PCP - General Nurse Practitioner 01/09/19 12/12/21 Sudha Greene, MAURICIO [address] [address] PCP - General 11/01/22 Noreen Flores APRN MID LEVEL BUSINESS ANALYST [address] [place] [address] [place] [address] Assigned PCP 06/16/18 05/26/22 Kalyan Galvan Personal Advocate & Liaison (PAL) 08/08/19 04/26/21 Lashae Trevino, [facility] [address] [place] [address] Pharmacist Pharmacist 10/14/19 12/01/20 Eduardo Sharma MD [address] [place] [address] [place] [address] Assigned Sleep Provider 04/02/2005/07 [place] [address] [address] Assigned Musculoskeletal Provider 04/02/20 08/24/20 Marcelo Artis PA-C [address] [address] Assigned Musculoskeletal Provider 08/25/20 08/20/21 Rodrigo Man PA-C [address] [address] Assigned Surgical Provider 08/25/20 11/27/20 Noreen Flores APRN MID LEVEL BUSINESS ANALYST [address] [place] [address] [place] [address] Assigned PCP 08/05/22 03/16/23 Agatha Null DPM, Podiatry/Foot and Ankle Surgery [address] [facility] [address] [place] [address] Assigned Musculoskeletal Provider 11/04/22 [facility] [place] [facility] [address] [place] [address] Assigned PCP 07/05/23 12/31/23 documented as of this encounter
--- OUTSIDE RECORDS SUMMARY | 2024-03-27 13:15 | XMS_ITS | Encounter Summary ---
Author Organization [place] Address [address] [place] [address] Care Team Providers Care Information Security Director Name Role Phone Vanda Guerrero MD Primary Care Provider [phone] Vanda Guerrero MD Unavailable [phone] Jeana-Noreen Miles APRN ENGINEER AND GEOLOGIST Unavailable [facility]-Noreen Miles APRN ENGINEER AND GEOLOGIST Unavailable [facility]-JdNoreen castro WATER RESOURCE PROJECT MANAGER ENGINEER AND GEOLOGIST Primary Car e Provider Kalyan Galvan Unavailable Unavailable Lashae Trevino [facility] Unavailable Eduardo Sharma MD Unavailable Rios Monteiro MD Unavailable Marcelo Artis PA-C Unavailable Rodrigo ManC Unavailable Jeana-Noreen Miles APRN ENGINEER AND GEOLOGIST Unavailable Sudha Greene NP Primary Care Provider [phone] Agatha Null DPM, Podiatry /Foot and Ankle Surgery Unavailable [facility] - [place] [facility] Unavailable Reason for Visit * Reason Onset Date Comments MyChart Communication 02/05/2018 Encounter Details Date Type Department Care Team (Late st Contact Info) Description 02/05/2018 [facility] [place] [address] [place] [address] [address] [place] [phone] Vanda Guerrero MD [address] [place] [address] [place] [address] MyChart Communication Social History Tobacco Use Types [...] Total Score: 12 06/12/ 018 1:02 PM DRAPERY OPERATOR documented as of this encounter Care Teams Information Security Director Relationship Specialty Start Date End Date Vanda Guerrero MD [address] [place] [address] [place] [address] PCP - General Internal Medicine 04/08/15 01/08/19 Vanda Guerrero MD [address] [place] [address] [place] [address] PCP - Assigned PCP 07/24/16 06/15/18 Noreen Flores APRN ENGINEER AND GEOLOGIST [address] [place] [address] [place] [address] PCP - Assigned PCP 06/16/18 08/13/18 Noreen Flores APRN ENGINEER AND GEOLOGIST [address] [place] [address] [place] [address] PCP - General Nurse Practitioner 01/09/19 12/12/21 Sudha Greene NP [address] [address] PCP - General 11/01/22 Noreen Flores APRN ENGINEER AND GEOLOGIST [address] [place] [address] [place] [address] Assigned PCP 06/16/18 05/26/22 Kalyan Galvan Personal Advocate & Liaison (PAL) 08/08/19 04/26/21 Lashae Trevino, [facility] [address] [place] [address] [place] [address] Pharmacist Pharmacist 10/14/19 12/01/20 Eduardo Sharma MD [address] [place] [address] [place] [id number] Assigned Sleep Provider 04/02/2005/07 [place] [address] [facility] [place] [address] [place] [address] Assigned Musculoskeletal Provider 04/02/20 08/24/20 Marcelo Artis PA-C [address] [facility] [place] [address] [place], [place] [address] Assigned Musculoskeletal Provider 08/25/20 08/20/21 Rodrigo Man PA-C [address] [place] [address] [place] [address] Assigned Surgical Provider 08/25/20 11/27/20 Noreen Flores APRN ENGINEER AND GEOLOGIST 3305 [facility] [place] [address] Assigned PCP 08/05/22 03/16/23 Agatha Null DPM, Podiatry/Foot and Ankle Surgery [address] [place] [address] [place] [address] Assigned Musculoskeletal Provider 11/04/22 Clinic - [place] [facility] [address] [facility] [place] [id number] Assigned PCP 07/05/23 12/31/23 documented as of this encounter
--- OUTSIDE RECORDS SUMMARY | 2024-03-27 13:15 | XMS_ITS | Encounter Summary ---
Author Organization [place] Address [address] [place] [address] Care Team Providers Care Dinkey Operator Slag Name Role Phone Noreen Flores APRN MACHINE STUFFER AUTOMATIC Unavailable Noreen Flores APRN MACHINE STUFFER AUTOMATIC Primary Car e Provider Kalyan Galvan Unavailable Unavailable Lashae Trevino [facility] Unavailable Eduardo Sharma MD Unavailable Rios Monteiro MD Unavailable [phone] Marcelo Artis PA-C Unavailable Rodrigo Man PA-C Unavailable [phone] Noreen Flores APRN MACHINE STUFFER AUTOMATIC Unavailable Sudha Greene NP Primary Care Provider Agatha Null DPM, Podiatry /Foot and Ankle Surgery Unavailable Clinic - [facility] [place] [facility] Unavailable Encounter Details Date Type Department Care Team (Late st Contact Info) Description 05/31/2019 Myra Moya [facility] [place] [address] [place] [address] Noreen Flores APRN MACHINE STUFFER AUTOMATIC [address] [facility] [place] [address] Chronic seasonal [...] Angel Faria RN - 06/02/2019 8:06 AM HOSPITAL INSURANCE CLERK Previous Rx did not successful e-scribe to pharmacy. Routing to PCP for approval. Please sent via fax. Multiple attempts in the past year with unsuccessful e-scribing. Route back to [facility] when completed. - Radu Faria RN Triage [employer] ITAL INSURANCE CLERK documented in this encounter Plan of [...] documented as of this encounter Care Teams Dinkey Operator Slag Relationship Specialty Start Date End Date Noreen Flores APRN CNP [address] [place] [address] [place] [address] PCP - General Nurse Practitioner 01/09/19 12/12/21 Sudha Greene NP [address] [address] PCP - General 11/01/22 Noreen Flores APRN MACHINE STUFFER AUTOMATIC [address] [facility] [place] [address] Assigned PCP 06/16/18 05/26/22 Kalyan Galvan Personal Advocate & Liaison (PAL) 08/08/19 04/26/21 [facility] [address] [place] [address] [place] [address] Pharmacist Pharmacist 10/14/19 12/01/20 Eduardo Sharma MD [address] [place] [address] [place] [address] Assigned Sleep Provider 04/02/2005/07 [place] [address] [address] [place] [address] [place] [address] Assigned Musculoskeletal Provider 04/02/20 08/24/20 Marcelo Artis PA-C [address] [place] [address] [place] [address] Assigned Musculoskeletal Provider 08/25/20 08/20/21 Rodrigo Man PA-C [address] [place] [address] [place] [address] Assigned Surgical Provider 08/25/20 11/27/20 Noreen Flores APRN MACHINE STUFFER AUTOMATIC [facility] [place] [address] Assigned PCP 08/05/22 03/16/23 Agatha Null, DPNita, Podiatry/Foot and Ankle Surgery [address] [address] Assigned Musculoskeletal Provider 11/04/22 [facility] [place] [address] [place] [address] Assigned PCP 07/05/23 12/31/23 documented as of this encounter"
--- OUTSIDE RECORDS SUMMARY | 2024-03-27 13:15 | XMS_ITS | Encounter Summary ---
Author Organization [place] Address [address] [place] [address] Care Team Providers Care Scutcher Tender Name Role Phone Vanda Guerrero MD Primary Care Provider [phone] Noreen Flores APRN FILENET ARCHITECT Unavailable Noreen Flores APRN FILENET ARCHITECT Primary Car e Provider Kalyan Galvan Unavailable Unavailable Lashae Trevino [facility] Unavailable [phone] Eduardo Sharma MD Unavailable Rios Monteiro MD Unavailable Marcelo Artis PA-C Unavailable Rodrigo Man PA-C Unavailable [phone] Noreen Flores APRN FILENET ARCHITECT Unavailable Sudha Greene NP Primary Care Provider Agatha Null DPM, Podiatry /Foot and Ankle Surgery Unavailable [facility] - [place] [facility] Unavailable Encounter Details Date Type Department Care Team (Late st Contact Info) Description 12/09/2018 [facility] [address] [facility] [address] [place] [address] Christi Panda MA Social History Tobacco [...] Depression Total Score: 7 06/25/19 9:49 AM METAL MINER BLASTING documented as of this encounter Care Teams Scutcher Tender Relationship Specialty Start Date End Date Vanda Guerrero MD [address] [place] [address] [place] [address] PCP - General Internal Medicine 04/08/15 01/08/19 Noreen Flores APRN FILENET ARCHITECT [address] [place] [address] [place] [address] PCP - General Nurse Practitioner 01/09/19 12/12/21 Sudha Greene NP [address] [address] PCP - General 11/01/22 Noreen Flores APRN FILENET ARCHITECT [address] [place] [address] [place] [address] Assigned PCP 06/16/18 05/26/22 Kalyan Galvan Personal Advocate & Liaison (PAL) 08/08/19 04/26/21 Lashae Trevino [facility] [address] [facility] [place] [address] Pharmacist Pharmacist 10/14/19 12/01/20 Eduardo Sharma MD [address] [place] [address] [place], [place] [address] Assigned Sleep Provider 04/02/2005/07 [place] [address] [place] [address] [address] [place] [id number] Assigned Musculoskeletal Provider 04/02/20 08/24/20 Marcelo Artis PA-C [address] [place] [address] [address] [place] [address] Assigned Musculoskeletal Provider 08/25/20 08/20/21 Rodrigo Man PA-C [address] [place] [place] [address] Assigned Surgical Provider 08/25/20 11/27/20 Noreen Flores APRN FILENET ARCHITECT [address] [place] [address] [place] [id number] Assigned PCP 08/05/22 03/16/23 Agatha Null DPM, Podiatry/Foot and Ankle Surgery [address] [place] [address] [facility] [address] [place] [address] Assigned Musculoskeletal Provider 11/04/22 [facility] [place] [facility] [address] [facility] [place] [address] Assigned PCP 07/05/23 12/31/23 documented as of this encounter
--- OUTSIDE RECORDS SUMMARY | 2024-03-27 13:15 | XMS_ITS | Encounter Summary ---
Author Organization [facility] Address [address] [place] [address] Care Team Providers Care Tree Wrapper Name Role Phone Noreen Flores APRN GLASS CUTTER HAND Unavailable Noreen Flores APRN GLASS CUTTER HAND Primary Car e Provider Kalyan Galvan Unavailable Unavailable Lashae Trevino [facility] Unavailable Eduardo Sharma MD Unavailable Rios Monteiro MD Unavailable Marcelo Artis PA-C Unavailable [phone] Rodrigo Man PA-C Unavailable [phone] Noreen Flores APRN GLASS CUTTER HAND Unavailable Sudha Greene NP Primary Care Provider [phone] Agatha Null DPM, Podiatry /Foot and Ankle Surgery Unavailable Clinic - [place] [facility] Unavailable Encounter Details Date Type Department Care Team (Late st Contact Info) Description 01/22/2019 Myra Moya [facility] [place] [address] [facility] [address] [place] [address] Marcelo Trejo, PT [address] [place] [address] Social History Tobacco Use Types [...] documented as of this encounter Care Teams Tree Wrapper Relationship Specialty Start Date End Date Noreen Flroes APRN GLASS CUTTER HAND [address] [place] [address] [place] [address] PCP - General Nurse Practitioner 01/09/19 12/12/21 Sudha Greene, [place]IC[place] [address] [address] PCP - General 11/01/22 Noreen Flores APRN GLASS CUTTER HAND [address] [place] [address] [place] [address] Assigned PCP 06/16/18 05/26/22 Kalyan Galvan Personal Advocate & Liaison (PAL) 08/08/19 04/26/21 Lashae Trevino, [facility] [address] [place] [address] [place] [address] Pharmacist Pharmacist 10/14/19 12/01/20 Eduardo Sharma MD [address] [place] [address] [place] [address] Assigned Sleep Provider 04/02/2005/07 [place] [address] [facility] [address] [place] [address] Assigned Musculoskeletal Provider 04/02/20 08/24/20 Marcelo Artis PA-C [address] [facility] [address] [place] [address] Assigned Musculoskeletal Provider 08/25/20 08/20/21 Rodrigo Man PA-C [address] [place] [address] Assigned Surgical Provider 08/25/20 11/27/20 Noreen Flores APRN CNP [address] [place] [address] [place] [address] Assigned PCP 08/05/22 03/16/23 Agatha Null DPM, Podiatry/Foot and Ankle Surgery [address] [place] [address] [address] [place] [address] Assigned Musculoskeletal Provider 11/04/22 [place] [facility] [place] [facility] [address] [facility] [place] [address] Assigned PCP 07/05/23 12/31/23 documented as of this encounter
--- OUTSIDE RECORDS SUMMARY | 2024-03-27 13:15 | XMS_ITS | Encounter Summary ---
Author Organization [place] Address [address] [place] [address] Care Team Providers Care Powerhouse Electrician Name Role Phone Vanda Guerrero MD Primary Care Provider [phone] Vanda Guerrero MD Unavailable [phone] Jeana-Noreen Miles APRN LOGISTICS TECHNICIAN Unavailable [facility]-Noreen Miles APRN LOGISTICS TECHNICIAN Unavailable [facility]-JdNoreen castro SOFTWARE CLERK LOGISTICS TECHNICIAN Primary Car e Provider Kalyan Galvan Unavailable Unavailable Lashae Trevino [facility] Unavailable Eduardo Sharma MD Unavailable Rios Monteiro MD Unavailable Marcelo Artis PA-C Unavailable Rodrigo ManC Unavailable Jeana-Noreen Miles APRN LOGISTICS TECHNICIAN Unavailable Sudha Greene NP Primary Care Provider Agatha Null DPM, Podiatry /Foot and Ankle Surgery Unavailable [facility] [facility] Unavailable Reason for Visit * Reason Onset Date Comments Musculoskeletal Problem 06/13/2016 Travel a dvice Encounter Details Date Type Department Care Team (Latest Contact Info) Description 06/13/2016 MyC Medical Advice [facility] [address] [place] [address] Agatha Null DPNita, Podiatry/Foot and Ankle Surgery [address] [place] [address] Musculoskeletal Problem (Travel advice) Social History Tobacco [...] to provider for review. Iain Barone RN CAL CHIEF TECHNICIAN documented in this encounter Plan of [...] Total Score: 11 05/02/ 016 7:09 AM MEDICAL CHIEF TECHNICIAN documented as of this encounter Care Teams Powerhouse Electrician Relationship Specialty Start Date End Date Vanda Guerrero MD [address] [facility] [place] [address] PCP - General Internal Medicine 04/08/15 01/08/19 Vanda Guerrero MD [address] [facility] [place] [address] PCP - Assigned PCP 07/24/16 06/15/18 Noreen Flores APRN LOGISTICS TECHNICIAN [address] [place] [address] [place] [address] PCP - Assigned PCP 06/16/18 08/13/18 Noreen Flores APRN LOGISTICS TECHNICIAN [address] [place] [address] [place] [address] PCP - General Nurse Practitioner 01/09/19 12/12/21 Sudha Greene NP [address] [address] PCP - General 11/01/22 Noreen Flores APRN LOGISTICS TECHNICIAN [address] [place] [address] [place] [address] Assigned PCP 06/16/18 05/26/22 Kalyan Galvan Personal Advocate & Liaison (PAL) 08/08/19 04/26/21 Lashae Trevino, [facility] 1440 [facility] [place] [address] Pharmacist Pharmacist 10/14/19 12/01/20 Eduardo Sharma MD [address] [facility] 103 [place] [address] Assigned Sleep Provider 04/02/2005/07 [place] [address] [facility] 300 [place] [address] Assigned Musculoskeletal Provider 04/02/20 08/24/20 Marcelo Artis, PA-C [address] [facility] 300 [place] [address] Assigned Musculoskeletal Provider 08/25/20 08/20/21 Rodrigo Man PA-C [address] [facility] [address] [place] [address] Assigned Surgical Provider 08/25/20 11/27/20 Noreen Flores APRN LOGISTICS TECHNICIAN [address] [facility] [place] [id number] Assigned PCP 08/05/22 03/16/23 Agatha Null DPM, Podiatry/Foot and Ankle Surgery [address] [facility] [address] [place] [address] Assigned Musculoskeletal Provider 11/04/22 [facility] [place] [facility] [address] [facility] [place] [id number] Assigned PCP 07/05/23 12/31/23 documented as of this encounter
--- OUTSIDE RECORDS SUMMARY | 2024-03-27 13:15 | XMS_ITS | Encounter Summary ---
Author Organization [place] Address [address] [place] [address] Care Team Providers Care Accountant Certified Public Name Role Phone Vanda Geurrero MD Primary Care Provider [phone] Vanda Guerrero MD Unavailable [phone] Jeana-Noreen Miles APRN MARKETING MANAGER HEALTH COMMUNICATIONS Unavailable [facility]-Noreen Miles APRN MARKETING MANAGER HEALTH COMMUNICATIONS Unavailable [facility]-JdNoreen castro IT INFRASTRUCTURE SPECIALIST MARKETING MANAGER HEALTH COMMUNICATIONS Primary Car e Provider Kalyan Galvan Unavailable Unavailable Lashae Trevino [facility] Unavailable Eduardo Sharma MD Unavailable Rios Monteiro MD Unavailable [phone] Marcelo Artis PA-C Unavailable Rodrigo ManC Unavailable Jeana-Noreen Miles APRN MARKETING MANAGER HEALTH COMMUNICATIONS Unavailable Sudha Greene NP Primary Care Provider Agatha Null DPM, Podiatry /Foot and Ankle Surgery Unavailable [facility] [place] [facility] Unavailable Reason for Visit * Reason Onset Date Comments Appointment 11/30/2016 reminder Encounter Details Date Type Department Care Team (Late st Contact Info) Description 11/30/2016 MyC Medical Advice [facility] [place] [address] [place] [phone] Kallie Celaya, RN Appointment (reminder) Social History [...] documented as of this encounter Care Teams Accountant Certified Public Relationship Specialty Start Date End Date Vanda Guerrero MD [address] [place] [address] [place] [address] PCP - General Internal Medicine 04/08/15 01/08/19 Vanda Guerrero MD [address] [place] [address] [place] [address] PCP - Assigned PCP 07/24/16 06/15/18 Noreen Flores APRN MARKETING MANAGER HEALTH COMMUNICATIONS [address] [place] [address] [place] [address] PCP - Assigned PCP 06/16/18 08/13/18 Noreen Flores APRN MARKETING MANAGER HEALTH COMMUNICATIONS [address] [place] [address] [place] [address] PCP - General Nurse Practitioner 01/09/19 12/12/21 Sudha Greene, MAURICIO [address] [address] PCP - General 11/01/22 Noreen Flores APRN MARKETING MANAGER HEALTH COMMUNICATIONS [facility]5 [facility] [place] [address] Assigned PCP 06/16/18 05/26/22 Kalyan Galvan Personal Advocate & Liaison (PAL) 08/08/19 04/26/21 Lashae Trevino, [facility] [address]40 [facility] [place] [id number] Pharmacist Pharmacist 10/14/19 12/01/20 Eduardo Sharma MD [address] [place] [address] [place] [address] Assigned Sleep Provider 04/02/2005/07 [place] [address] [place] [address] [place] [address] Assigned Musculoskeletal Provider 04/02/20 08/24/20 Marcelo Artis PA-C [address] [place] [address] [place] [address] Assigned Musculoskeletal Provider 08/25/20 08/20/21 Rodrigo Man PA-C [address] [place] [address] [place] [address] Assigned Surgical Provider 08/25/20 11/27/20 JeanaNoreen Ortiz APRN MARKETING MANAGER HEALTH COMMUNICATIONS [address] [facility] [place] [address] Assigned PCP 08/05/22 03/16/23 Agatha Null DPM, Podiatry/Foot and Ankle Surgery [address] [place] [address] Assigned Musculoskeletal Provider 11/04/22 [facility] [place] [place] [facility] 3[address] [facility] [place] [address] Assigned PCP 07/05/23 12/31/23 documented as of this encounter
--- OUTSIDE RECORDS SUMMARY | 2024-03-27 13:15 | XMS_ITS | Encounter Summary ---
Author Organization [place] Address [address] [place] [address] Care Team Providers Care Senior Net Web Developer Name Role Phone Noreen Flores APRN HEALTH CARE LEGAL ASSISTANT Unavailable Noreen Flores APRN HEALTH CARE LEGAL ASSISTANT Primary Car e Provider Kalyan Galvan Unavailable Unavailable Lashae Trevino [facility] Unavailable Eduardo Sharma MD Unavailable Rios Monteiro MD Unavailable [phone] Marcelo Artis PA-C Unavailable [phone] Rodrigo Man PA-C Unavailable [phone] Noreen Flores APRN HEALTH CARE LEGAL ASSISTANT Unavailable Sudha Greene NP Primary Care Provider [phone] Agatha Null DPM, Podiatry /Foot and Ankle Surgery Unavailable [facility] - [place] [facility] Unavailable Encounter Details Date Type Department Care Team (Late st Contact Info) Description 05/30/2019 Myra Moya [facility] [address] [facility] [address] [place] [address] Christi Panda MA Social History [...] as of this encounter Care Teams Senior Net Web Developer Relationship Specialty Start Date End Date Noreen Flores APRN HEALTH CARE LEGAL ASSISTANT [address] [facility] [place] [address] PCP - General Nurse Practitioner 01/09/19 12/12/21 Sudha Greene NP [address] [address] PCP - General 11/01/22 Noreen Flores APRN HEALTH CARE LEGAL ASSISTANT [address] [place] [address] [place] [address] Assigned PCP 06/16/18 05/26/22 Kalyan Galavn Personal Advocate & Liaison (PAL) 08/08/19 04/26/21 Lashae Trevino [facility] [address] [place] [address] Pharmacist Pharmacist 10/14/19 12/01/20 Eduardo Sharma MD [address] [place] [address] [place] [address] Assigned Sleep Provider 04/02/2005/07 [place] [id number] [place] [address] 300 [place] [address] Assigned Musculoskeletal Provider 04/02/20 08/24/20 Marcelo Artis PA-C [address] [place] [address] 300 [place] [address] Assigned Musculoskeletal Provider 08/25/20 08/20/21 Rodrigo Man PA-C [address] [facility] 450 [place] [address] Assigned Surgical Provider 08/25/20 11/27/20 Noreen Flores APRN HEALTH CARE LEGAL ASSISTANT [address] [place] [address] [place] [id number] Assigned PCP 08/05/22 03/16/23 Agatha Null DPM, Podiatry/Foot and Ankle Surgery [address] [place] [address] [facility] [address] [place] [address] Assigned Musculoskeletal Provider 11/04/22 [facility] [place] [facility] [address] [facility] [place] [address] Assigned PCP 07/05/23 12/31/23 documented as of this encounter
--- OUTSIDE RECORDS SUMMARY | 2024-03-27 13:15 | XMS_ITS | Encounter Summary ---
Author Organization [place] Address [address] [place] [address] Care Team Providers Care Head Loft Worker Name Role Phone Vanda Guerrero MD Primary Care Provider [phone] Vanda Guerrero MD Unavailable [phone] Jeana-Noreen Miles APRN DISTRIBUTION SPEC Unavailable Jeana-Noreen Miles APRN DISTRIBUTION SPEC Unavailable Jeana-JdNoreen castro ASSEMBLER INSTALLER STRUCTURES DISTRIBUTION SPEC Primary Car e Provider Kalyan Galvan Unavailable Unavailable Lashae Trevino [facility] Unavailable [phone] Eduardo Sharma MD Unavailable Rios Monteiro MD Unavailable [phone] Marcelo Artis PA-C Unavailable Rodrigo ManC Unavailable Jeana-Noreen Miles APRN DISTRIBUTION SPEC Unavailable Sudha Greene NP Primary Care Provider Agatha Null DPM, Podiatry /Foot and Ankle Surgery Unavailable [facility] [place] [facility] Unavailable Encounter Details Date Type Department Care Team (Late st Contact Info) Description 03/21/2017 Myra Medical Lucy [facility] [place] 5495 [facility] [address] [place] [phone] Dusty Oneil [facility] Social History Tobacco Use Types Packs/Day [...] as of this encounter Care Teams Head Loft Worker Relationship Specialty Start Date End Date Vanda Guerrero MD [address] [place] [address] [place] [address] PCP - General Internal Medicine 04/08/15 01/08/19 Vanda Guerrero MD [address] [place] [address] [place] [address] PCP - Assigned PCP 07/24/16 06/15/18 Noreen Flores APRN DISTRIBUTION SPEC [address] [place] [address] [place] [address] PCP - Assigned PCP 06/16/18 08/13/18 Noreen Flores APRN DISTRIBUTION SPEC [address] [place] [address] [place] [address] PCP - General Nurse Practitioner 01/09/19 12/12/21 Sudha Greene NP [address] [address] PCP - General 11/01/22 Noreen Flores APRN DISTRIBUTION SPEC [address] [facility] [place] [address] Assigned PCP 06/16/18 05/26/22 Kalyan Galvan Personal Advocate & Liaison (PAL) 08/08/19 04/26/21 Lashae Trevino [facility] [address] [facility] [address] [place] [phone] Pharmacist Pharmacist 10/14/19 12/01/20 Eduardo Sharma MD [address] [place] [address] [place] [address] Assigned Sleep Provider 04/02/2005/07 [place] [address] [facility] [address] [place] [address] Assigned Musculoskeletal Provider 04/02/20 08/24/20 Marcelo Artis PA-C [address] [facility] [address] [place] [address] Assigned Musculoskeletal Provider 08/25/20 08/20/21 Rodrigo Man PA-C [address] [place] [address] [place] [address] Assigned Surgical Provider 08/25/20 11/27/20 Noreen Flores APRN DISTRIBUTION SPEC 3305 [facility] [place] [address] Assigned PCP 08/05/22 03/16/23 Agatha Null DPM, Podiatry/Foot and Ankle Surgery [address] [facility] [place] [address] Assigned Musculoskeletal Provider 11/04/22 [facility] [place] [facility] 3[address] [facility] [place] [address] Assigned PCP 07/05/23 12/31/23 documented as of this encounter
--- OUTSIDE RECORDS SUMMARY | 2024-03-27 13:15 | XMS_ITS | Encounter Summary ---
Author Organization [place] Address [address] [place] [address] Care Team Providers Care Motor Assembler Name Role Phone Vanda Guerrero MD Primary Care Provider [phone] Vanda Guerrero MD Unavailable [phone] Jeana-Noreen Miles APRN FINANCIAL SERVICES CONSULTANT Unavailable Jeana-Noreen Miles APRN FINANCIAL SERVICES CONSULTANT Unavailable Jeana-Noreen Miles RESOURCE CONSERVATION SPECIALIST FINANCIAL SERVICES CONSULTANT Primary Car e Provider Kalyan Galvan Unavailable Unavailable Lashae Trevino [facility] Unavailable Eduardo Sharma MD Unavailable Rios Monteiro MD Unavailable Marcelo Artis PA-C Unavailable Rodrigo ManC Unavailable Jeana-Noreen Miles APRN FINANCIAL SERVICES CONSULTANT Unavailable Sudha Greene NP Primary Care Provider [phone] Agatha Null DPM, Podiatry /Foot and Ankle Surgery Unavailable [facility] [place] [place] [facility] Unavailable Encounter Details Date Type Department Care Team (Late st Contact Info) Description 02/17/2018 [facility] Lucy Moya [facility] [address] [place] [address] Liya Gonzalez RN Social History Tobacco Use [...] as of this encounter Care Teams Motor Assembler Relationship Specialty Start Date End Date Vanda Guerrero MD [address] [place] [address] [place] [address] PCP - General Internal Medicine 04/08/15 01/08/19 Vanda Guerrero MD [address] [place] [address] [place] [address] PCP - Assigned PCP 07/24/16 06/15/18 Noreen Flores APRN FINANCIAL SERVICES CONSULTANT [address] [place] [address] [place] [address] PCP - Assigned PCP 06/16/18 08/13/18 Noreen Flores APRN FINANCIAL SERVICES CONSULTANT [address] [place] [address] [place] [address] PCP - General Nurse Practitioner 01/09/19 12/12/21 Sudha Greene NP [address] [address] PCP - General 11/01/22 Noreen Flores APRN FINANCIAL SERVICES CONSULTANT [address] [facility] [place] [address] Assigned PCP 06/16/18 05/26/22 Kalyan Galvan Personal Advocate & Liaison (PAL) 08/08/19 04/26/21 Lashae Trevino [facility] [address] [place] [address] [place] [address] Pharmacist Pharmacist 10/14/19 12/01/20 Eduardo Sharma MD [address] [place] [address] [place] [address] Assigned Sleep Provider 04/02/2005/07 [place] [address] [facility] [address] [place] [address] Assigned Musculoskeletal Provider 04/02/20 08/24/20 Marcelo Artis PA-C [address] [place] [address] [place] [address] Assigned Musculoskeletal Provider 08/25/20 08/20/21 Rodrigo Man PA-C [address] [place] [place] [address] Assigned Surgical Provider 08/25/20 11/27/20 Noreen Flores APRN FINANCIAL SERVICES CONSULTANT [address] [facility] [place] [address] Assigned PCP 08/05/22 03/16/23 Agatha Null DPM, Podiatry/Foot and Ankle Surgery [address] [place] [address] Assigned Musculoskeletal Provider 11/04/22 [facility] [place] [facility] [address] [facility] [place] [address] Assigned PCP 07/05/23 12/31/23 documented as of this encounter
--- OUTSIDE RECORDS SUMMARY | 2024-03-27 13:15 | XMS_ITS | Encounter Summary ---
Author Organization [place] Address [address] [place] [address] Care Team Providers Care Honey Liquefier Name Role Phone Vanda Guerrero MD Primary Care Provider [phone] Vanda Guerrero MD Unavailable [phone] Jeana-Noreen Miles APRN GROUND SYSTEMS ENGINEER Unavailable [facility]-Noreen Miles APRN GROUND SYSTEMS ENGINEER Unavailable [facility]-JdNoreen castro HEAD ATHLETIC TRAINER/STRENGTH COACH GROUND SYSTEMS ENGINEER Primary Car e Provider Kalyan Galvan Unavailable Unavailable Lashae Trevino [facility] Unavailable Eduardo Sharma MD Unavailable Rios Monteiro MD Unavailable Marcelo Artis PA-C Unavailable Rodrigo ManC Unavailable Jeana-Noreen Miles APRN GROUND SYSTEMS ENGINEER Unavailable Sudha Greene NP Primary Care Provider Agatha Null DPM, Podiatry /Foot and Ankle Surgery Unavailable [facility] [place] [facility] Unavailable Reason for Visit * Reason Onset Date Comments Refill Request 08/30/2016 Metformin 500mg tab Encounter Details Date Type Department Care Team (Late st Contact Info) Description 08/30/2016 Refill [facility] [place] [address] [facility] [place] [address] Vanda Guerrero MD [address] [facility] [place] [address] Refill Request (Metformin 500mg tab) Social History [...] Office Visit with G, P or [facility] prescribing provider: 06/01/16 BP Readings from Last [...] Depression Total Score: 11 016 7:09 AM DATA WAREHOUSE ADMINISTRATOR documented as of this encounter Care Teams Honey Liquefier Relationship Specialty Start Date End Date Vanda Guerrero MD [address] [place] [address] [place] [address] PCP - General Internal Medicine 04/08/15 01/08/19 Vanda Guerrero MD [address] [place] [address] [place] [address] PCP - Assigned PCP 07/24/16 06/15/18 Noreen Flores APRN GROUND SYSTEMS ENGINEER [address] [place] [address] [place] [address] PCP - Assigned PCP 06/16/18 08/13/18 Noreen Flores APRN GROUND SYSTEMS ENGINEER [address] [place] [address] [place] [address] PCP - General Nurse Practitioner 01/09/19 12/12/21 Sudha Greene NP [address] [address] PCP - General 11/01/22 Noreen Flores APRN GROUND SYSTEMS ENGINEER [address] [place] [address] [place] [address] Assigned PCP 06/16/18 05/26/22 Kalyan Galvan Personal Advocate & Liaison (PAL) 08/08/19 04/26/21 Lashae Trevino, [facility] [address] [id number] Pharmacist Pharmacist 10/14/19 12/01/20 Eduardo Sharma MD [address] [place] [address] [place] [address] Assigned Sleep Provider 04/02/2005/07 [place] [address] [address] Assigned Musculoskeletal Provider 04/02/20 08/24/20 Marcelo Artis PA-C [address] [address] Assigned Musculoskeletal Provider 08/25/20 08/20/21 Rodrigo Man PA-C [address] [address] Assigned Surgical Provider 08/25/20 11/27/20 Noreen Flores APRN GROUND SYSTEMS ENGINEER [address] [place] [address] [place] [address] Assigned PCP 08/05/22 03/16/23 Agatha Null DPM, Podiatry/Foot and Ankle Surgery [address] [facility] [address] [place] [address] Assigned Musculoskeletal Provider 11/04/22 [facility] [place] [address] [place] [address] Assigned PCP 07/05/23 12/31/23 documented as of this encounter
--- OUTSIDE RECORDS SUMMARY | 2024-03-27 13:15 | XMS_ITS | Encounter Summary ---
Author Organization [place] Address [address] [place] [address] Care Team Providers Care Nuclear Supervising Operator Name Role Phone Noreen Flores APRN, CNP Unavailable Noreen Flores APRN, CNP Primary Car e Provider Kalyan Galvan Unavailable Unavailable Lashae Trevino [facility] Unavailable Eduardo Sharma MD Unavailable Rios Monteiro MD Unavailable Marcelo Artis PA-C Unavailable Rodrigo Man PA-C Unavailable [phone] Noreen Flores APRN, CNP Unavailable Sudha Greene NP Primary Care Provider [phone] Agatha Null DPM, Podiatry /Foot and Ankle Surgery Unavailable [facility] [place] [facility] Unavailable Reason for Visit * Reason Onset Date Comments Medication Refill 04/25/2019 metFORMIN (GLU COPHAGE) 500 MG tablet Encounter Details Date Type Department Care Team (Late st Contact Info) Description 04/25/2019 Refill [facility] [place] [address] [place] [address] Noreen Flores APRN CNP [address] [facility] [address] Medication Refill (metFORMIN (GLUCOPHAGE) 500 MG tablet) [...] Kimberley Bryan RN - 04/28/2019 11:47 AM MANUAL PLATE FILLER Routing refill request to provider for review/approval because: Labs not current: LDL, creatinine Due for appointment AL PLATE FILLER * Telephone Encounter - Lara Villalba - [...] & Orders section of the refill encounter. AL PLATE FILLER documented in this encounter Plan of [...] as of this encounter Care Teams Nuclear Supervising Operator Relationship Specialty Start Date End Date Noreen Flores APRN WIRELINE SUPERVISOR [address] [place] [address] [place] [address] PCP - General Nurse Practitioner 01/09/19 12/12/21 uSdha Greene NP [facility] - [address] [place] [address] PCP - General 11/01/22 oNreen Flores APRN WIRELINE SUPERVISOR [address] [place] [address] [place] [address] Assigned PCP 06/16/18 05/26/22 Kalyan Galvan Personal Advocate & Liaison (PAL) 08/08/19 04/26/21 [facility] [address] [place] [address] [place] [address] Pharmacist Pharmacist 10/14/19 12/01/20 Eduardo Sharma MD [address] [place] [place] [address] Assigned Sleep Provider 04/02/2005/07 [place] [address] [place] [address] Assigned Musculoskeletal Provider 04/02/20 08/24/20 Marcelo Artis PA-C [address] [place] [address] Assigned Musculoskeletal Provider 08/25/20 08/20/21 Rodrigo Man PA-C [address] [place], [place] [address] Assigned Surgical Provider 08/25/20 11/27/20 Noreen Flores APRN WIRELINE SUPERVISOR [facility] [facility] [place] [address] Assigned PCP 08/05/22 03/16/23 Agatha Null DPM, Podiatry/Foot and Ankle Surgery [address] [place] [address] Assigned Musculoskeletal Provider 11/04/22 [facility] - [place] [address] [place] [address] Assigned PCP 07/05/23 12/31/23 documented as of this encounter
--- OUTSIDE RECORDS SUMMARY | 2024-03-27 13:15 | XMS_ITS | Encounter Summary ---
Author Organization [place] Address [address] [place] [address] Care Team Providers Care Marriage And Family Therapist Name Role Phone Vanda Guerrero MD Primary Care Provider [phone] Vanda Guerrero MD Unavailable [phone] Jeana-Noreen Miles APRN LOCOMOTIVE CRANE OPERATOR HELPER Unavailable [facility]-Noreen Miles APRN LOCOMOTIVE CRANE OPERATOR HELPER Unavailable [facility]-JdNoreen castro ORGANISATIONAL PSYCHOLOGIST LOCOMOTIVE CRANE OPERATOR HELPER Primary Car e Provider Kalyan Galvan Unavailable Unavailable Lashae Trevino [facility] Unavailable [phone] Eduardo Sharma MD Unavailable Rios Monteiro MD Unavailable Marcelo Artis PA-C Unavailable Rodrigo Man PA-C Unavailable Jeana-Noreen Miles APRN LOCOMOTIVE CRANE OPERATOR HELPER Unavailable Sudha Greene NP Primary Care Provider Agatha Null DPM, Podiatry /Foot and Ankle Surgery Unavailable [facility] [place] [facility] Unavailable Reason for Visit * Reason Comments Medication Refill simvastatin (ZOCOR) 20 MG tablet Encounter Details Date Type Department Care Team (Late st Contact Info) Description 02/15/2017 Refill [facility] [place] [address] [place] [address] Vanda Guerrero MD [address] [facility] [place] [address] Medication Refill (simvastatin (ZOCOR) 20 MG tablet) [...] Last Office Visit with [facility], [facility] or [facility] prescribing provider: 09/25/2016 Lab Results Component [...] 178 <200 mg/dL 02/17/2017 2:14 PM CDT [facility] Triglycerides 121 <150 mg/dL 02/17/2017 2:14 PM CDT [facility] Comment:Fasting specimen HDL Cholesterol 43(L) >49 mg/dL 7 2:14 PM CDT [facility] LDL Cholesterol Calculated 111(H) <100 mg/dL 02/17/2017 2:14 PM CDT [facility] Comment: Above desirable: ??100-129 mg/dl Borderline High: ??130-159 mg/dL High: ? 160-189 mg/dL Very high: ? >189 mg/dl Non HDL Cholesterol 135(H) <130 mg/dL 02/17/2017 2:14 PM CDT [facility] Comment: Above Desirable: ??130-159 mg/dl Borderline high: ??160-189 mg/dl High: ? 190-219 mg/dl Very high: ? >219 mg/dl Blood specimen (specimen) 02/17/2017 9:13 AM CDT 02/17/2017 9:18 AM CDT Vanda Guerrero MD LAB - BLOOD ORDER [facility] [address] [place] [address] documented in this encounter Visit Diagnoses Diagnosis [...] documented as of this encounter Care Teams Marriage And Family Therapist Relationship Specialty Start Date End Date Vanda Guerrero MD [address] [place] [address] [place] [address] PCP - General Internal Medicine 04/08/15 01/08/19 Vanda Guerrero MD [address] [place] [address] [place] [address] PCP - Assigned PCP 07/24/16 06/15/18 Noreen Flores APRN LOCOMOTIVE CRANE OPERATOR HELPER [address] [place] [address] [place] [address] PCP - Assigned PCP 06/16/18 08/13/18 Noreen Flores APRN LOCOMOTIVE CRANE OPERATOR HELPER [address] [place] [address] [place] [address] PCP - General Nurse Practitioner 01/09/19 12/12/21 Sudha Greene NP [address] [address] PCP - General 11/01/22 Noreen Flores APRN LOCOMOTIVE CRANE OPERATOR HELPER [address] [place] [address] [place] [address] Assigned PCP 06/16/18 05/26/22 Kalyan Galvan Personal Advocate & Liaison (PAL) 08/08/19 04/26/21 [facility] [place] [address] Pharmacist Pharmacist 10/14/19 12/01/20 Eduardo Sharma MD [address] [place] [address] Assigned Sleep Provider 04/02/2005/07 [place] [address] [place] [address] [address] [place] [id number] Assigned Musculoskeletal Provider 04/02/20 08/24/20 Marcelo Artis PA-C [address] [place] [address] [address] [place] [address] Assigned Musculoskeletal Provider 08/25/20 08/20/21 Rodrigo Man PA-C [address] [place] [address] Assigned Surgical Provider 08/25/20 11/27/20 Noreen Flores APRN LOCOMOTIVE CRANE OPERATOR HELPER [address] [place] [address] [place] [address] Assigned PCP 08/05/22 03/16/23 Agatha Null DPM, Podiatry/Foot and Ankle Surgery [address] [place] [address] [place] [address] Assigned Musculoskeletal Provider 11/04/22 [facility] [place] [place] [facility] [address] [facility] [place] [address] Assigned PCP 07/05/23 12/31/23 documented as of this encounter
--- OUTSIDE RECORDS SUMMARY | 2024-03-27 13:15 | XMS_ITS | Encounter Summary ---
Author Organization [place] Address [address] [place] [address] Care Team Providers Care Guard Museum Name Role Phone Vanda Guerrero MD Primary Care Provider [phone] Vanda Guerrero MD Unavailable [phone] Jeana-Noreen Miles APRN CORNER CUTTER MACHINE OPERATOR Unavailable [facility]Noreen Miles APRN CORNER CUTTER MACHINE OPERATOR Unavailable [facility]-JdNoreen castro FIRER HELPER CORNER CUTTER MACHINE OPERATOR Primary Car e Provider Kalyan Galvan Unavailable Unavailable Lashae Trevino [facility] Unavailable Eduardo Sharma MD Unavailable Rios Monteiro MD Unavailable Marcelo Artis PA-C Unavailable Rodrigo Man PA-C Unavailable Jeana-Noreen Miles APRN CORNER CUTTER MACHINE OPERATOR Unavailable Sudha Greene NP Primary Care Provider Agatha Null DPM, Podiatry /Foot and Ankle Surgery Unavailable [facility] [place] [facility] Unavailable Reason for Visit * Reason Comments Medication Refill zolpidem (AMBIEN) 5 MG tablet Encounter Details Date Type Department Care Team (Late st Contact Info) Description 02/20/2018 Refill [facility] [place] [address] [place] [address] Vanda Guerrero MD [address] [facility] [place] [address] Medication Refill (zolpidem (AMBIEN) 5 MG tablet) [...] in station out basket or on MA/CHIEF OPHTHALMIC TECHNICIAN/RN desk * Telephone Encounter - Gayathri Mcallister RN - 02/21/2018 3:33 PM CDT JUNIOR ELECTRICAL ENGINEER checked: patient refilled: 06/12, 07/07 and 10/04 [...] documented as of this encounter Care Teams Guard Museum Relationship Specialty Start Date End Date Vanda Guerrero MD [address] [place] [address] [place] [address] PCP - General Internal Medicine 04/08/15 01/08/19 Vanda Guerrero MD [address] [place] [address] [place] [address] PCP - Assigned PCP 07/24/16 06/15/18 Noreen Flores APRN CORNER CUTTER MACHINE OPERATOR [address] [place] [place] [address] [place] [address] PCP - Assigned PCP 06/16/18 08/13/18 Noreen Flores APRN CORNER CUTTER MACHINE OPERATOR [address] [place] [place] [address] [place] [address] PCP - General Nurse Practitioner 01/09/19 12/12/21 Sudha Greene, MAURICIO [address] [address] PCP - General 11/01/22 Noreen Flores APRN CORNER CUTTER MACHINE OPERATOR [address] [place] [address] [place] [address] Assigned PCP 06/16/18 05/26/22 Kalyan Galvan Personal Advocate & Liaison (PAL) 08/08/19 04/26/21 Lashae Trevino, [facility] [address] [place] [address] [place] [address] Pharmacist Pharmacist 10/14/19 12/01/20 Eduardo Sharma MD [address] [place] [id number] Assigned Sleep Provider 04/02/2005/07 [place] [address] [facility] [address] [place] [address] Assigned Musculoskeletal Provider 04/02/20 08/24/20 Marcelo Artis PA-C [address] [facility] [address] [place], [place] [address] Assigned Musculoskeletal Provider 08/25/20 08/20/21 Rodrigo Man PA-C [address] [place] [id number] Assigned Surgical Provider 08/25/20 11/27/20 Noreen Flores APRN CORNER CUTTER MACHINE OPERATOR [address] [facility] [place] [address] Assigned PCP 08/05/22 03/16/23 Agatha Null DPM, Podiatry/Foot and Ankle Surgery [address] [place] [address] Assigned Musculoskeletal Provider 11/04/22 [facility] [place] [facility] [address] [facility] [place] [id number] Assigned PCP 07/05/23 12/31/23 documented as of this encounter
--- OUTSIDE RECORDS SUMMARY | 2024-03-27 13:15 | XMS_ITS | Encounter Summary ---
Author Organization [place] Address [address] [place] [address] Care Team Providers Care Television Specialist Name Role Phone Vanda Guerrero MD Primary Care Provider [phone] Vanda Guerrero MD Unavailable [phone] Jeana-JdNoreen castro APRN CHAIN SAW MECHANIC Unavailable [facility]-Noreen Miles APRN CHAIN SAW MECHANIC Unavailable [facility]-JdNoreen castro CABLE FERRY OPERATOR CHAIN SAW MECHANIC Primary Car e Provider Kalyan Galvan Unavailable Unavailable Lashae Trevino [facility] Unavailable Eduardo Sharma MD Unavailable Rios Monteiro MD Unavailable [phone] Marcelo Artis PA-C Unavailable Rodrigo ManC Unavailable Jeana-Noreen Miles APRN CHAIN SAW MECHANIC Unavailable Sudha Greene NP Primary Care Provider Agatha Null DPM, Podiatry /Foot and Ankle Surgery Unavailable [facility] [place] [facility] Unavailable Reason for Visit * Reason Comments Medication Refill ONETOUCH ULTRA test strip; simvastatin (ZOCOR) 20 MG tablet Encounter Details Date Type Department Care Team (Late st Contact Info) Description 12/21/2017 Refill [facility] [place] [address] [place] [address] Vanda Guerrero MD [address] [facility] [place] [address] Medication Refill (ONETOUCH ULTRA test strip; simvastatin [...] 12/25/2017 10:56 AM CDT Prescription approved per [facility] Refill Protocol. Day Greene [...] Depression Total Score: 12 018 1:02 PM ENTRY LEVEL INSTALLATION TECHNICIAN documented as of this encounter Care Teams Television Specialist Relationship Specialty Start Date End Date Vanda Guerrero MD [address] [facility] [place] [address] PCP - General Internal Medicine 04/08/15 01/08/19 Vanda Guerrero MD [address] [facility] [place] [address] PCP - Assigned PCP 07/24/16 06/15/18 Noreen Flores APRN CHAIN SAW MECHANIC [address] [place] [address] [place] [address] PCP - Assigned PCP 06/16/18 08/13/18 Noreen Flores APRN CHAIN SAW MECHANIC [address] [place] [address] [place] [address] PCP - General Nurse Practitioner 01/09/19 12/12/21 Sudha Greene, MAURICIO [address] [address] PCP - General 11/01/22 Noreen Flores APRN CHAIN SAW MECHANIC [address] [place] [address] [place] [address] Assigned PCP 06/16/18 05/26/22 Kalyan Galvan Personal Advocate & Liaison (PAL) 08/08/19 04/26/21 [facility] [address] [facility] [place] [address] Pharmacist Pharmacist 10/14/19 12/01/20 Eduardo Sharma MD [address] [facility] 103 [place] [address] Assigned Sleep Provider 04/02/2005/07 [place] [address] [facility] 300 [place], [place] [address] Assigned Musculoskeletal Provider 04/02/20 08/24/20 Marcelo Artis PA-C [address] [facility] 300 [place] [address] Assigned Musculoskeletal Provider 08/25/20 08/20/21 Rodrigo Man PA-C 6545 [facility] 450 [place] [address] Assigned Surgical Provider 08/25/20 11/27/20 Noreen Flores APRN CNP [address] [place] [address] [place] [address] Assigned PCP 08/05/22 03/16/23 Agatha Null DPM, Podiatry/Foot and Ankle Surgery [address] [facility] [address] [place] [address] Assigned Musculoskeletal Provider 11/04/22 [facility] [place] [place] [facility] [address] [place] [address] [place] [address] Assigned PCP 07/05/23 12/31/23 documented as of this encounter
--- OUTSIDE RECORDS SUMMARY | 2024-03-27 13:15 | XMS_ITS | Encounter Summary ---
Author Organization [place] Address [address] [place] [address] Care Team Providers Care Round Up Ring Hand Name Role Phone Vanda Guerrero MD Primary Care Provider [phone] Vanda Guerrero MD Unavailable [phone] Jeana-JdNoreen castro APRN MEDICAL ONCOLOGIST Unavailable [facility]-Noreen Miles APRN MEDICAL ONCOLOGIST Unavailable [facility]-JdNoreen castro IT TRAINEE MEDICAL ONCOLOGIST Primary Car e Provider Kalyan Galvan Unavailable Unavailable Lashae Trevino [facility] Unavailable Eduardo Sharma MD Unavailable Rios Monteiro MD Unavailable Marcelo Artis PA-C Unavailable Rodrigo ManC Unavailable Jeana-Noreen Miles APRN MEDICAL ONCOLOGIST Unavailable Sudha Greene NP Primary Care Provider Agatha Null DPM, Podiatry /Foot and Ankle Surgery Unavailable [facility] [place] [facility] Unavailable Reason for Visit * Reason Onset Date Comments Refill Request 03/04/2018 loratadine-pseud oePHEDrine ([facility] ALLERGY RELIEF-D) 10- 240 MG per 24 hr tablet Encounter Details Date Type Department Care Team (Late st Contact Info) Description 03/04/2018 Refill [facility] [address] [place] [address] Vanda Guerrero MD [address] [facility] [place] [address] Refill Request (loratadine-pseudoePHED rine ([facility] ALLERGY RELIEF-D) [...] and in station out basket or on MA/BLINDSTITCH HEMMER/RN desk * Telephone Encounter - Kartik Javier [...] documented as of this encounter Care Teams Round Up Ring Hand Relationship Specialty Start Date End Date Vanda Guerrero MD [address] [place] [address] [place] [address] PCP - General Internal Medicine 04/08/15 01/08/19 Vanda Guerrero MD [address] [place] [address] [place] [address] PCP - Assigned PCP 07/24/16 06/15/18 Noreen Flores APRN MEDICAL ONCOLOGIST [address] [place] [address] [place] [address] PCP - Assigned PCP 06/16/18 08/13/18 Noreen Flores APRN MEDICAL ONCOLOGIST [address] [place] [address] [place] [address] PCP - General Nurse Practitioner 01/09/19 12/12/21 Sudha Greene NP [address] [address] PCP - General 11/01/22 Noreen Flores APRN MEDICAL ONCOLOGIST [address] [place] [address] [place] [address] Assigned PCP 06/16/18 05/26/22 Kalyan Galvan Personal Advocate & Liaison (PAL) 08/08/19 04/26/21 [facility] [address] [place] [address] Pharmacist Pharmacist 10/14/19 12/01/20 Eduardo Sharma MD [address] [place] [address] [place] [address] Assigned Sleep Provider 04/02/2005/07 [place] [address] [place] [address] Assigned Musculoskeletal Provider 04/02/20 08/24/20 Marcelo Artis PA-C [address] [place] [address] Assigned Musculoskeletal Provider 08/25/20 08/20/21 Rodrigo Man PA-C [address] [place], [place] [address] Assigned Surgical Provider 08/25/20 11/27/20 Noreen Flores APRN MEDICAL ONCOLOGIST [address] [place] [address] [place] [address] Assigned PCP 08/05/22 03/16/23 Agatha Null, MARÍA, Podiatry/Foot and Ankle Surgery [address] [place] [address] Assigned Musculoskeletal Provider 11/04/22 [facility] [address] [address] Assigned PCP 07/05/23 12/31/23 documented as of this encounter
--- OUTSIDE RECORDS SUMMARY | 2024-03-27 13:15 | XMS_ITS | Encounter Summary ---
Author Organization [place] Address [address] [place] [address] Care Team Providers Care Procedure Rn Name Role Phone Vanda Guerrero MD Primary Care Provider [phone] Vanda Guerrero MD Unavailable [phone] Jeana-Noreen Miles APRN RETAIL ANALYTICS MANAGER Unavailable [facility]Noreen Miles APRN RETAIL ANALYTICS MANAGER Unavailable [facility]-JdNoreen castro WRAPPER SORTER RETAIL ANALYTICS MANAGER Primary Car e Provider Kalyan Galvan Unavailable Unavailable Lashae Trevino [facility] Unavailable [phone] Eduardo Sharma MD Unavailable Rios Monteiro MD Unavailable [phone] Marcelo Artis PA-C Unavailable Rodrigo Man PA-C Unavailable Jeana-Noreen Miles APRN RETAIL ANALYTICS MANAGER Unavailable Sudha Greene NP Primary Care Provider Agatha Null DPM, Podiatry /Foot and Ankle Surgery Unavailable [facility] Unavailable Reason for Visit * Reason Onset Date Comments Patient/info Update 07/18/2017 post C7-T1 i nterlaminar epidural steroid injection Encounter Details Date Type Department Care Team (Late st Contact Info) Description 07/18/2017 Telephone [facility] [place] [address] [facility] [address] [place], [place] [address] Jim Wang MD [address] [place] [address] Patient/info Update (post C7-T1 interlaminar epidural steroid [...] pt should call the nurse line at [phone]. OMER SOLUTIONS SUPERVISOR documented in this encounter Plan of Treatment Not on file documented as of this encounter Visit Diagnoses Not on filedocumented in this encounter Additional Health Concerns Infection Onset Date Last Indicated Resolved Time Rule Out COVID-19 08/25/2020 08/25/2020 08/26/2020 3:23 PM CDT Rule Out COVID-19 11/26/2022 11/26/2022 11/27/2022 3:38 PM CDT Assessment Noted Time PHQ-9 Depression Total Score: 12 018 1:02 PM CUSTOMER SOLUTIONS SUPERVISOR documented as of this encounter Care Teams Procedure Rn Relationship Specialty Start Date End Date Vanda Guerrero MD [address] [place] [address] [place] [address] PCP - General Internal Medicine 04/08/15 01/08/19 Vanda Guerrero MD [address] [place] [address] [place] [address] PCP - Assigned PCP 07/24/16 06/15/18 Noreen Flores APRN RETAIL ANALYTICS MANAGER [address] [place] [address] [place] [address] PCP - Assigned PCP 06/16/18 08/13/18 Noreen Flores APRN RETAIL ANALYTICS MANAGER [address] [place] [address] [place] [address] PCP - General Nurse Practitioner 01/09/19 12/12/21 Sudha Greene NP [address] [address] PCP - General 11/01/22 Noreen Flores APRN RETAIL ANALYTICS MANAGER [address] [place] [address] [place] [address] Assigned PCP 06/16/18 05/26/22 Kalyan Galvan Personal Advocate & Liaison (PAL) 08/08/19 04/26/21 Lashae Trevino, [facility] [address] [place] [address] Pharmacist Pharmacist 10/14/19 12/01/20 Eduardo Sharma MD [address] [place] [place] [address] Assigned Sleep Provider 04/02/2005/07 [place] [id number] [place] [address] [address] [place] [address] Assigned Musculoskeletal Provider 04/02/20 08/24/20 Marcelo Artis PA-C [id number] [place] [address] 300 [place] [address] Assigned Musculoskeletal Provider 08/25/20 08/20/21 Rodrigo Man PA-C [address] [place] [address] Assigned Surgical Provider 08/25/20 11/27/20 Noreen Flores APRN RETAIL ANALYTICS MANAGER [address] [place] [address] [place] [address] Assigned PCP 08/05/22 03/16/23 Agatha Null DPM, Podiatry/Foot and Ankle Surgery [address] [place] [address] [facility] [address] [place] [address] Assigned Musculoskeletal Provider 11/04/22 [facility] [address] [facility] [place] [id number] Assigned PCP 07/05/23 12/31/23 documented as of this encounter
--- OUTSIDE RECORDS SUMMARY | 2024-03-27 13:15 | XMS_ITS | Encounter Summary ---
Author Organization [place] Address [address] [place] [address] Care Team Providers Care Top Inventory Control Executive Name Role Phone Vanda Guerrero MD Primary Care Provider [phone] Vanda Guerrero MD Unavailable [phone] Jeana-Noreen Miles APRN ANIMAL HUMANE AGENT SUPERVISOR Unavailable Jeana-Noreen Miles APRN ANIMAL HUMANE AGENT SUPERVISOR Unavailable Jeana-JdNoreen castro DRAG OUT WORKER ANIMAL HUMANE AGENT SUPERVISOR Primary Car e Provider Kalyan Galvan Unavailable Unavailable Lashae Trevino [facility] Unavailable Eduardo Sharma MD Unavailable Rios Monteiro MD Unavailable [phone] Marcelo Artis PA-C Unavailable [phone] Rodrigo ManC Unavailable Jeana-Noreen Miles APRN ANIMAL HUMANE AGENT SUPERVISOR Unavailable Sudha Greene NP Primary Care Provider Agatha Null DPM, Podiatry /Foot and Ankle Surgery Unavailable [facility] [place] [facility] Unavailable Encounter Details Date Type Department Care Team (Late st Contact Info) Description 12/05/2016 [facility] [address] [place] [address] Heath Sandy Jerez, [facility] [address] [facility] [place] [address] Social History Tobacco Use Types Packs/Day Years [...] documented as of this encounter Care Teams Top Inventory Control Executive Relationship Specialty Start Date End Date Vanda Guerrero MD [address] [place] [address] [place] [address] PCP - General Internal Medicine 04/08/15 01/08/19 Vanda Guerrero MD [address] [place] [address] [place] [address] PCP - Assigned PCP 07/24/16 06/15/18 Noreen Flores APRN ANIMAL HUMANE AGENT SUPERVISOR [address] [place] [address] [place] [address] PCP - Assigned PCP 06/16/18 08/13/18 Noreen Flores APRN ANIMAL HUMANE AGENT SUPERVISOR [address] [place] [address] [place] [address] PCP - General Nurse Practitioner 01/09/19 12/12/21 Sudha Greene NP [address] [address] PCP - General 11/01/22 Noreen Flores APRN ANIMAL HUMANE AGENT SUPERVISOR [facility] [place] [address] Assigned PCP 06/16/18 05/26/22 Kalyan Galvan Personal Advocate & Liaison (PAL) 08/08/19 04/26/21 Lashae Trevino, [facility] [address] [facility] [place] [address] Pharmacist Pharmacist 10/14/19 12/01/20 Eduardo Sharma MD [address] [place] [address] Assigned Sleep Provider 04/02/2005/07 [place] [address] [place] [address] Assigned Musculoskeletal Provider 04/02/20 08/24/20 Marcelo Artis PA-C [address] [place] [address] Assigned Musculoskeletal Provider 08/25/20 08/20/21 Rodrigo Man PA-C [address] [place] [address] Assigned Surgical Provider 08/25/20 11/27/20 Noreen Flores APRN ANIMAL HUMANE AGENT SUPERVISOR [facility] [place] [address] Assigned PCP 08/05/22 03/16/23 Agatha Null DPM, Podiatry/Foot and Ankle Surgery [address] [place] [address] Assigned Musculoskeletal Provider 11/04/22 [facility] [place] [facility] [address] [facility] [place] [id number] Assigned PCP 07/05/23 12/31/23 documented as of this encounter
--- OUTSIDE RECORDS SUMMARY | 2024-03-27 13:16 | XMS_ITS | Encounter Summary ---
Author Organization [place] Address [address] [place] [address] Care Team Providers Care Grinding Room Inspector Name Role Phone Vanda Guerrero MD Primary Care Provider [phone] Vanda Guerrero MD Unavailable [phone] Jeana-JdNoreen castro APRN ROLLER HELPER Unavailable [facility]-Noreen Miles APRN ROLLER HELPER Unavailable [facility]-JdNoreen castro CARDIOVASCULAR SONOGRAPHER ROLLER HELPER Primary Car e Provider Kalyan Galvan Unavailable Unavailable Lashae Trevino [facility] Unavailable [phone] Eduardo Sharma MD Unavailable Rios Monteiro MD Unavailable [phone] Marcelo ArtisC Unavailable Rodrigo Man-C Unavailable [phone] Jeana-Noreen Miles APRN ROLLER HELPER Unavailable Sudha Greene NP Primary Care Provider Agatha Null DPM, Podiatry /Foot and Ankle Surgery Unavailable [facility] Unavailable Reason for Referral * Consultation - Closed Specialty Diagnoses / Procedures Referred By Rylie t Referred To Contact Diagnoses Cervicalgia History of lumbar fusion History of fusion of cervical spine Vanda Guerrero MD [address] [facility] [place] [address] [facility] [address] [facility] [address] [place] [address] Referral ID Status Reason Start Date Expiration Date Visits Re quested Visits Authorized [id number] Closed 04/27/2015 04/26/2016 1 1 Comments [facility] is referring you to the Orthopedic Sales Support Rep Services at [facility]. The Sales Support Rep Oyster Planter will assist you in the coordination of your Orthopedic and Musculoskeletal Care as prescribed by your physician. The Sales Support Rep Oyster Planter will call you within 24 hours to help schedule your appointment, or you may contact the Sales Support Rep Oyster Planter at: [facility] [facility] ~ [facility] ~ [facility] ~ Type of Referral : Spine: Cervical / Thoracic: Medical Accident Investigator Timeframe requested: Routine Coverage of these services is subject to the terms and limitations of your health insurance plan. Please call member services at your health plan with any benefit or coverage questions. If X-rays, CT or MRI's have been performed, please contact the facility where they were done to arrange for picker/puller, prior to your scheduled appointment. Please bring this referral request to your appointment and present it to your specialist. ING MACHINE OPERATOR Reason for Visit * Reason Onset Date Comments Leg Pain 04/27/2015 Encounter Details Date Type Department Care Team (Late st Contact Info) Description 04/27/2015 MyC Medical Advice [facility] [address] [facility] [place] [address] Vanda Guerrero MD [address] [facility] [place] [address] Leg Pain Social History Tobacco Use Types [...] Kallie Mishra RN - 04/27/2015 5:20 PM VENDING MACHINE OPERATOR Entered referral, sent Go Try It On message to update the patient. ING MACHINE OPERATOR * Telephone Encounter - Vanda Guerrero MD - 04/27/2015 3:16 PM VENDING MACHINE OPERATOR Recommend FSOC evaluation in the next 1-2 weeks. ING MACHINE OPERATOR * Telephone Encounter - Kallie Mishra RN - 04/27/2015 3:14 PM VENDING MACHINE OPERATOR Would you recommend re-evaluation due to new symptoms? ING MACHINE OPERATOR documented in this encounter [...] documented as of this encounter Care Teams Grinding Room Inspector Relationship Specialty Start Date End Date Vanda Guerrero MD [address] [facility] [place] [address] PCP - General Internal Medicine 04/08/15 01/08/19 Vanda Guerrero MD [address] [facility] [place] [address] PCP - Assigned PCP 07/24/16 06/15/18 Noreen Flores APRN ROLLER HELPER [address] [place] [address] [place] [address] PCP - Assigned PCP 06/16/18 08/13/18 Noreen Flores APRN ROLLER HELPER [address] [place] [address] [place] [address] PCP - General Nurse Practitioner 01/09/19 12/12/21 Sudha Greene NP [address] [address] PCP - General 11/01/22 Noreen Flores APRN ROLLER HELPER [address] [place] [address] [place] [address] Assigned PCP 06/16/18 05/26/22 Kalyan Galvan Personal Advocate & Liaison (PAL) 08/08/19 04/26/21 Lashae Trevino, [facility] [address] [facility] [place] [address] Pharmacist Pharmacist 10/14/19 12/01/20 Eduardo Sharma MD [address] [facility] 103 [place] [address] Assigned Sleep Provider 04/02/2005/07 [place] [address] [facility] 300 [place] [address] Assigned Musculoskeletal Provider 04/02/20 08/24/20 Marcelo Artis PA-C [address] [facility] 300 [place] [address] Assigned Musculoskeletal Provider 08/25/20 08/20/21 Rodrigo Man PA-C [address] [facility] [address] [place] [address] Assigned Surgical Provider 08/25/20 11/27/20 Noreen Flores APRN ROLLER HELPER [address] [place] [address] [place] [address] Assigned PCP 08/05/22 03/16/23 Agatha Null DPM, Podiatry/Foot and Ankle Surgery [address] [facility] [address] [place] [address] Assigned Musculoskeletal Provider 11/04/22 [facility] [place] [facility] [address] [facility] [place] [id number] Assigned PCP 07/05/23 12/31/23 documented as of this encounter
--- OUTSIDE RECORDS SUMMARY | 2024-03-27 13:16 | XMS_ITS | Encounter Summary ---
Author Organization [place] Address [address] [place] [address] Care Team Providers Care Group Therapist Name Role Phone Selma Good APRN SUPERVISOR FELLING BUCKING Primary Care Pro vider Vanda Guerrero MD Primary Care Provider [phone] Vanda Guerrero MD Unavailable [phone] Jeana-JdNoreen castro APRN, CNP Unavailable Jeana-JdNoreen castro APRN, CNP Unavailable JeanaRejiJdNoreen castro APRN, CNP Primary Car e Provider Kalyan Galvan Unavailable Unavailable Lashae Trevino [facility] Unavailable [phone] Eduardo Sharma MD Unavailable Rios Monteiro MD Unavailable [phone] Marcelo Artis PA-C Unavailable [phone] Rodrigo ManC Unavailable [phone] Jeana-Noreen Miles APRN SUPERVISOR FELLING BUCKING Unavailable Sudha Greene NP Primary Care Provider Agatha NullM, Podiatry /Foot and Ankle Surgery Unavailable [facility] Unavailable Reason for Visit * Reason Onset Date Comments Cellulitis 09/13/2010 not completely g one Encounter Details Date Type Department Care Team (Late st Contact Info) Description 09/13/2010 [facility] [address] [place] [address] [place] [address] Selma Good, TRAM OPERATOR SUPERVISOR FELLING BUCKING [address] [facility] [place] [address] Cellulitis (not completely gone ) Social History [...] documented as of this encounter Care Teams Group Therapist Relationship Specialty Start Date End Date Selma Good, SEAN SUPERVISOR FELLING BUCKING [address] [place] [address] [place] [address] PCP - General 04/09/08 04/07/15 Vanda Guerrero MD [address] [place] [address] [place] [address] PCP - General Internal Medicine 04/08/15 01/08/19 Vanda Guerrero MD [address] [place] [address] [place] [address] PCP - Assigned PCP 07/24/16 06/15/18 Noreen Flores APRN SUPERVISOR FELLING BUCKING [address] [place] [address] [place] [address] PCP - Assigned PCP 06/16/18 08/13/18 Noreen Flores APRN SUPERVISOR FELLING BUCKING [address] [place] [address] [place] [address] PCP - General Nurse Practitioner 01/09/19 12/12/21 Sudha Greene NP [address] [address] PCP - General 11/01/22 Noreen Flores APRN SUPERVISOR FELLING BUCKING [address] [place] [address] [place] [address] Assigned PCP 06/16/18 05/26/22 Kalyan Galvan Personal Advocate & Liaison (PAL) 08/08/19 04/26/21 [facility] [address] [place] [address] [place] [phone] Pharmacist Pharmacist 10/14/19 12/01/20 Eduardo Sharma MD [address] [facility] [facility] 103 [place] [address] Assigned Sleep Provider 04/02/2005/07 Rios Monteiro MD [address] [place] [address]57[address] Assigned Musculoskeletal Provider 04/02/20 08/24/20 Marcelo Artis, PA-C [address] [facility] 300 [place] [address] Assigned Musculoskeletal Provider 08/25/20 08/20/21 Rodrigo Man PA-C [address] [facility] [address] [place] [address] Assigned Surgical Provider 08/25/20 11/27/20 Noreen Flores APRN SUPERVISOR FELLING BUCKING [address] [facility] [place] [address] Assigned PCP 08/05/22 03/16/23 Agatha Null DPM, Podiatry/Foot and Ankle Surgery [address] [place] [address] [place] [address] Assigned Musculoskeletal Provider 11/04/22 [facility] [place] [facility] [address] [facility] [place] [address] Assigned PCP 07/05/23 12/31/23 documented as of this encounter
--- OUTSIDE RECORDS SUMMARY | 2024-03-27 13:16 | XMS_ITS | Encounter Summary ---
Author Organization [place] Address [address] [place] [address] Care Team Providers Care Flower Arranger Name Role Phone Vanda Guerrero MD Primary Care Provider [phone] Vanda Guerrero MD Unavailable [phone] Jeana-Noreen Miles APRN HOUSE CALLS NURSE Unavailable [facility]-Noreen Miles APRN HOUSE CALLS NURSE Unavailable [facility]-JdNoreen castro CANDY POLISHER HOUSE CALLS NURSE Primary Car e Provider Kalyan Galvan Unavailable Unavailable Lashae Trevino [facility] Unavailable Eduardo Sharma MD Unavailable Rios Monteiro MD Unavailable [phone] Marcelo Artis PA-C Unavailable Rodrigo ManC Unavailable Jeana-Noreen Miles APRN HOUSE CALLS NURSE Unavailable Sudha Greene NP Primary Care Provider [phone] Agatha Null DPM, Podiatry /Foot and Ankle Surgery Unavailable [facility] [place] [facility] Unavailable Reason for Visit * Reason Onset Date Comments Derm Problem 01/20/2016 Encounter Details Date Type Department Care Team (Late st Contact Info) Description 01/20/2016 [facility] [address] [place] [address] [place] [address] Vanda Guerrero MD [address] [place] [address] [place] [address] Derm Problem Social History Tobacco Use Types [...] as of this encounter Care Teams Flower Arranger Relationship Specialty Start Date End Date Vanda Guerrero MD [address] [place] [address] [place] [address] PCP - General Internal Medicine 04/08/15 01/08/19 Vanda Guerrero MD [address] [place] [address] [place] [address] PCP - Assigned PCP 07/24/16 06/15/18 Noreen Flores APRN HOUSE CALLS NURSE [address] [place] [address] [place] [address] PCP - Assigned PCP 06/16/18 08/13/18 Noreen Flores APRN HOUSE CALLS NURSE [address] [facility] [place] [address] PCP - General Nurse Practitioner 01/09/19 12/12/21 Sudha Greene NP [address] [address] PCP - General 11/01/22 Noreen Flores, SEAN HOUSE CALLS NURSE [address] [place] [address] [place] [address] Assigned PCP 06/16/18 05/26/22 Kalyan Galvan Personal Advocate & Liaison (PAL) 08/08/19 04/26/21 [facility] [address] [place] [address] [place] [address] Pharmacist Pharmacist 10/14/19 12/01/20 Eduardo Sharma MD [address] [place] [id number] Assigned Sleep Provider 04/02/2005/07 [place] [address] [facility] [address] [place] [address] Assigned Musculoskeletal Provider 04/02/20 08/24/20 Marcelo Artis PA-C [address] [facility] [address] [place], [place] [address] Assigned Musculoskeletal Provider 08/25/20 08/20/21 Rodrigo Man PA-C [address] [place] [id number] Assigned Surgical Provider 08/25/20 11/27/20 Noreen Flores APRN HOUSE CALLS NURSE [address] [facility] [place] [address] Assigned PCP 08/05/22 03/16/23 Agatha Null DPM, Podiatry/Foot and Ankle Surgery [address] [address] [address] Assigned Musculoskeletal Provider 11/04/22 [facility] [place] [address] [facility] [place] [id number] Assigned PCP 07/05/23 12/31/23 documented as of this encounter
--- OUTSIDE RECORDS SUMMARY | 2024-03-27 13:16 | XMS_ITS | Encounter Summary ---
Author Organization [place] Address [address] [place] [address] Care Team Providers Care Rn Pain Management Name Role Phone Selma Good APRN CARRIAGE SETTER Primary Care Pro vider Vanda Guerrero MD Primary Care Provider [phone] Vanda Guerrero MD Unavailable [phone] Jeana-JdNoreen castro APRN, CNP Unavailable Jeana-JdNoreen castro APRN, CNP Unavailable JeanaRejiJdNoreen castro APRN, CNP Primary Car e Provider Kalyan Galvan Unavailable Unavailable Lashae Trevino [facility] Unavailable [phone] Eduardo Sharma MD Unavailable Rios Monteiro MD Unavailable [phone] Marcelo Artis PA-C Unavailable [phone] Rodrigo ManC Unavailable [phone] Jeana-Noreen Miles APRN CARRIAGE SETTER Unavailable Sudha Greene NP Primary Care Provider Agatha NullM, Podiatry /Foot and Ankle Surgery Unavailable [facility] Unavailable Reason for Visit * Reason Onset Date Comments Medication Question 10/06/2014 lisinopril Refill Request 10/06/2014 OT lancets and s trips Encounter Details Date Type Department Care Team (Late st Contact Info) Description 10/06/2014 MyC Medical Advice [facility] [place] [address] [facility] [place] [phone] Selma Good, [facility] 3305 [facility] [place] [address] Medication Question (lisinopril); Refill R... Social History [...] PM CDT Appointment today with Kenyon GUEVARA, CLOTH BLEACHING RANGE BACK TENDER: 5. Hypertension goal BP (blood pressure) < [...] as of this encounter Care Teams Rn Pain Management Relationship Specialty Start Date End Date Selma Good APRN CARRIAGE SETTER [address] [place] [address] [place] [address] PCP - General 04/09/08 04/07/15 Vanda Guerrero MD [address] [place] [address] [place] [address] PCP - General Internal Medicine 04/08/15 01/08/19 Vanda Guerrero MD [address] [place] [address] [place] [address] PCP - Assigned PCP 07/24/16 06/15/18 Noreen Flores APRN CARRIAGE SETTER [address] [place] [address] [place] [address] PCP - Assigned PCP 06/16/18 08/13/18 Noreen Flores APRN CARRIAGE SETTER [address] [place] [address] [place] [address] PCP - General Nurse Practitioner 01/09/19 12/12/21 Sudha Greene NP [address] [address] PCP - General 11/01/22 Noreen Flores APRN CARRIAGE SETTER 3305 [facility] [place] [address] Assigned PCP 06/16/18 05/26/22 Kalyan Galvan Personal Advocate & Liaison (PAL) 08/08/19 04/26/21 [facility] [address] [place] [address] [place] [address] Pharmacist Pharmacist 10/14/19 12/01/20 Eduardo Sharma MD [address] [place] [address] [place] [address] Assigned Sleep Provider 04/02/2005/07 [place] [address] [place] [address] [place] [address] Assigned Musculoskeletal Provider 04/02/20 08/24/20 Marcelo Artis PA-C [address] [facility] [address] [place] [address] [place] [address] Assigned Musculoskeletal Provider 08/25/20 08/20/21 Rodrigo Man PA-C [address] [place] [address] [place] [address] Assigned Surgical Provider 08/25/20 11/27/20 Noreen Flores APRN CARRIAGE SETTER 3305 [facility] [place] [address] Assigned PCP 08/05/22 03/16/23 Agatha Null DPM, Podiatry/Foot and Ankle Surgery [address] [place] [address] Assigned Musculoskeletal Provider 11/04/22 Clinic - [facility] [place] [facility] [address] [place] [address] [place] [address] Assigned PCP 07/05/23 12/31/23 documented as of this encounter
--- OUTSIDE RECORDS SUMMARY | 2024-03-27 13:16 | XMS_ITS | Encounter Summary ---
Author Organization [place] Address [address] [place] [address] Care Team Providers Care Curtain Worker Name Role Phone Selma Good APRN LINE ORDERING CLINICIAN Primary Care Pro vider Vanda Guerrero MD Primary Care Provider [phone] Vanda Guerrero MD Unavailable [phone] Jeana-JdNoreen castro APRN, CNP Unavailable Jeana-JdNoreen castro APRN, CNP Unavailable JeanaRejiJdNoreen castro APRN, CNP Primary Car e Provider Kalyan Galvan Unavailable Unavailable Lashae Trevino [facility] Unavailable [phone] Eduardo Sharma MD Unavailable Rios Monteiro MD Unavailable [phone] Marcelo Artis PA-C Unavailable [phone] Rodrigo ManC Unavailable [phone] Jeana-Noreen Miles APRN LINE ORDERING CLINICIAN Unavailable Sudha Greene NP Primary Care Provider Agatha NullM, Podiatry /Foot and Ankle Surgery Unavailable [facility] Unavailable Reason for Visit * Reason Onset Date Comments Medication Problem 06/22/2014 amitriptline side effects Encounter Details Date Type Department Care Team (Late st Contact Info) Description 06/22/2014 [facility] Medical Advice [facility] [place] [address] [place] [address] [place] [phone] Selma Good APRN LINE ORDERING CLINICIAN 3[address] [facility] [place] [address] Medication Problem (amitriptline side effe... Social History [...] documented as of this encounter Care Teams Curtain Worker Relationship Specialty Start Date End Date Selma Good, SEAN LINE ORDERING CLINICIAN [address] [place] [address] [place] [address] PCP - General 04/09/08 04/07/15 Vanda Guerrero MD [address] [place] [address] [place] [address] PCP - General Internal Medicine 04/08/15 01/08/19 Vanda Guerrero MD [address] [place] [address] [place] [address] PCP - Assigned PCP 07/24/16 06/15/18 Noreen Flores APRN LINE ORDERING CLINICIAN [address] [facility] [place] [address] PCP - Assigned PCP 06/16/18 08/13/18 Noreen Flores APRN LINE ORDERING CLINICIAN [address] [place] [address] [place] [address] PCP - General Nurse Practitioner 01/09/19 12/12/21 Sudha Greene NP [address] [address] PCP - General 11/01/22 Noreen Flores APRN LINE ORDERING CLINICIAN [address] [place] [address] [place] [address] Assigned PCP 06/16/18 05/26/22 Kalyan Galvan Personal Advocate & Liaison (PAL) 08/08/19 04/26/21 [facility] [address] [place] [address] [place] [address] Pharmacist Pharmacist 10/14/19 12/01/20 Eduardo Sharma MD 6363 [facility] 103 [place] [address] Assigned Sleep Provider 04/02/2005/07 [place] [address] [facility] 300 [place] [address] Assigned Musculoskeletal Provider 04/02/20 08/24/20 Marcelo Artis PA-C [address] [facility] 300 [place] [id number] Assigned Musculoskeletal Provider 08/25/20 08/20/21 Rodrigo Man PA-C [address] [facility] [address] [place] [address] Assigned Surgical Provider 08/25/20 11/27/20 Noreen Flores APRN LINE ORDERING CLINICIAN 3305 [facility] [place] [id number] Assigned PCP 08/05/22 03/16/23 Agatha Null DPM, Podiatry/Foot and Ankle Surgery 15014 [facility] 300 [place] [id number] Assigned Musculoskeletal Provider 11/04/22 [facility] 3305 [facility] [place] [id number] Assigned PCP 07/05/23 12/31/23 documented as of this encounter
--- OUTSIDE RECORDS SUMMARY | 2024-03-27 13:16 | XMS_ITS | Encounter Summary ---
Author Organization [place] Address [address] [place] [address] Care Team Providers Care Special Education Paraeducator Name Role Phone Selma Good APRN LINING LAYER Primary Care Pro vider Vanda Guerrero MD Primary Care Provider [phone] Vanda Guerrero MD Unavailable [phone] Jeana-JdNoreen castro APRN, CNP Unavailable Jeana-JdNoreen castro APRN, CNP Unavailable JeanaNoreen Garcia APRN, CNP Primary Car e Provider Kalyan Galvan Unavailable Unavailable Lashae Trevino [facility] Unavailable [phone] Eduardo Sharma MD Unavailable Rios Monteiro MD Unavailable [phone] Marcelo Artis PA-C Unavailable [phone] Rodrigo ManC Unavailable [phone] Jeana-Noreen Miles APRN LINING LAYER Unavailable Sudha Greene NP Primary Care Provider Agatha NullM, Podiatry /Foot and Ankle Surgery Unavailable [facility] Unavailable Reason for Visit * Reason Onset Date Comments Foot Problems 03/19/2014 numb Encounter Details Date Type Department Care Team (Late st Contact Info) Description 03/19/2014 [facility] [address] [place] [address] [place] [phone] Selma Good APRN LINING LAYER 3305 [facility] [place] [address] Foot Problems (numb) Social History Tobacco Use [...] of this encounter Care Teams Special Education Paraeducator Relationship Specialty Start Date End Date Selma Good APRN LINING LAYER [address] [place] [address] [place] [address] PCP - General 04/09/08 04/07/15 Vanda Guerrero MD [address] [place] [address] [place] [address] PCP - General Internal Medicine 04/08/15 01/08/19 Vanda Guerrero MD [address] [place] [address] [place] [address] PCP - Assigned PCP 07/24/16 06/15/18 Noreen Flores APRN LINING LAYER [address] [place] [address] [place] [address] PCP - Assigned PCP 06/16/18 08/13/18 Noreen Flores APRN LINING LAYER [address] [place] [address] [place] [address] PCP - General Nurse Practitioner 01/09/19 12/12/21 Sudha Greene NP [address] [address] PCP - General 11/01/22 Noreen Flores APRN LINING LAYER [address] [place] [address] [place] [address] Assigned PCP 06/16/18 05/26/22 Kalyan Galvan Personal Advocate & Liaison (PAL) 08/08/19 04/26/21 [facility] [address] [place] [address] [place] [phone] Pharmacist Pharmacist 10/14/19 12/01/20 Eduardo Sharma MD [address] [facility] 103 [place] [address] Assigned Sleep Provider 04/02/2005/07 Rios Monteiro MD [address] [place] [address] 503017 Assigned Musculoskeletal Provider 04/02/20 08/24/20 Marcelo Artis, PA-C [address] [facility] 300 [place] [address] Assigned Musculoskeletal Provider 08/25/20 08/20/21 Rodrigo Man PA-C [address] [facility] 450 [place] [address] Assigned Surgical Provider 08/25/20 11/27/20 Noreen Flores APRN LINING LAYER 3305 [facility] [place] [address] Assigned PCP 08/05/22 03/16/23 Agahta Null DPM, Podiatry/Foot and Ankle Surgery [address] [place] [address] [place] [address] Assigned Musculoskeletal Provider 11/04/22 [facility] [place] [facility] 3305 [facility] [place] [address] Assigned PCP 07/05/23 12/31/23 documented as of this encounter
--- OUTSIDE RECORDS SUMMARY | 2024-03-27 13:16 | XMS_ITS | Encounter Summary ---
Author Organization [place] Address [address] [place] [address] Care Team Providers Care Inside Sales Representative Name Role Phone Selma Good APRN EDI PROGRAMMER ANALYST Primary Care Pro vider Vanda Guerrero MD Primary Care Provider [phone] Vanda Guerrero MD Unavailable [phone] Jeana-JdNoreen castro APRN, CNP Unavailable Jeana-JdNoreen castro APRN, CNP Unavailable JeanaNoreen Garcia APRN EDI PROGRAMMER ANALYST Primary Car e Provider Kalyan Galvan Unavailable Unavailable Lashae Trevino [facility] Unavailable [phone] Eduardo Sharma MD Unavailable Rios Monteiro MD Unavailable [phone] Marcelo Artis PA-C Unavailable [phone] Rodrigo Man PA-C Unavailable [phone] Jeana-Noreen Miles APRN EDI PROGRAMMER ANALYST Unavailable Sudha Greene NP Primary Care Provider [phone] Agatha NullM, Podiatry /Foot and Ankle Surgery Unavailable [facility] Unavailable Encounter Details Date Type Department Care Team (Late st Contact Info) Description 12/05/2012 [facility] Medical Advice [address] [place] [address] Alejo Casas Social History [...] documented as of this encounter Care Teams Inside Sales Representative Relationship Specialty Start Date End Date Selma Good APRN EDI PROGRAMMER ANALYST [address] [facility] [place] [address] PCP - General 04/09/08 04/07/15 Vanda Guerrero MD [address] [facility] [place] [address] PCP - General Internal Medicine 04/08/15 01/08/19 Vanda Guerrero MD [address] [place] [address] [place] [address] PCP - Assigned PCP 07/24/16 06/15/18 Noreen Flores APRN EDI PROGRAMMER ANALYST [address] [place] [address] [place] [address] PCP - Assigned PCP 06/16/18 08/13/18 Noreen Flores APRN EDI PROGRAMMER ANALYST [address] [facility] [place] [address] PCP - General Nurse Practitioner 01/09/19 12/12/21 Sudha Greene NP [address] [address] PCP - General 11/01/22 Noreen Flores APRN EDI PROGRAMMER ANALYST [address] [facility] [place] [address] Assigned PCP 06/16/18 05/26/22 Kalyan Galvan Personal Advocate & Liaison (PAL) 08/08/19 04/26/21 [facility] [address] [place] [address] [place] [address] Pharmacist Pharmacist 10/14/19 12/01/20 Eduardo Sharma MD [address] [facility] 103 [place] [address] Assigned Sleep Provider 04/02/2005/07 [place] [address] [facility] 300 [place] [address] Assigned Musculoskeletal Provider 04/02/20 08/24/20 Marcelo Artis PA-C [address] [facility] 300 [place] [address] Assigned Musculoskeletal Provider 08/25/20 08/20/21 Rodrigo Man PA-C [address] [place] [place] [address] Assigned Surgical Provider 08/25/20 11/27/20 Noreen Flores APRN EDI PROGRAMMER ANALYST [address] [facility] [place] [address] Assigned PCP 08/05/22 03/16/23 Agatha Null DPM, Podiatry/Foot and Ankle Surgery [address] [place] [address] [place] [address] Assigned Musculoskeletal Provider 11/04/22 Clinic - [facility] [address] [facility] [place] [address] Assigned PCP 07/05/23 12/31/23 documented as of this encounter
--- OUTSIDE RECORDS SUMMARY | 2024-03-27 13:16 | XMS_ITS | Encounter Summary ---
Author Organization [place] Address [address] [place] [address] Care Team Providers Care Bilingual Teacher Name Role Phone Selma Good APRN LIQUEFIED NATURAL GAS PLANT OPERATOR Primary Care Pro vider Vanda Guerrero MD Primary Care Provider [phone] Vanda Guerrero MD Unavailable [phone] Jeana-JdNoreen castro APRN, CNP Unavailable Jeana-JdNoreen castro APRN, CNP Unavailable JeanaNoreen Garcia APRN, CNP Primary Car e Provider Kalyan Galvan Unavailable Unavailable Lashae Trevino [facility] Unavailable [phone] Eduardo Sharma MD Unavailable Rios Monteiro MD Unavailable [phone] Marcelo Artis PA-C Unavailable [phone] Rodrigo ManC Unavailable [phone] Jeana-Noreen Miles APRN LIQUEFIED NATURAL GAS PLANT OPERATOR Unavailable Sudha Greene NP Primary Care Provider Agatha NullM, Podiatry /Foot and Ankle Surgery Unavailable [facility] Unavailable Reason for Visit * Reason Onset Date Comments Symptoms 03/07/2012 uti Encounter Details Date Type Department Care Team (Late st Contact Info) Description 03/07/2012 MyC Medical Advice [address] [place] [phone] Selma Good APRN LIQUEFIED NATURAL GAS PLANT OPERATOR 3305 [facility] [place] [address] Symptoms (uti) Social History Tobacco Use Types [...] as of this encounter Care Teams Bilingual Teacher Relationship Specialty Start Date End Date Selma Good APRN LIQUEFIED NATURAL GAS PLANT OPERATOR [address] [place] [address] [place] [address] PCP - General 04/09/08 04/07/15 Vanda Guerrero MD [address] [place] [address] [place] [address] PCP - General Internal Medicine 04/08/15 01/08/19 Vanda Guerrero MD [address] [place] [address] [place] [address] PCP - Assigned PCP 07/24/16 06/15/18 Noreen Flores APRN LIQUEFIED NATURAL GAS PLANT OPERATOR [address] [place] [address] [place] [address] PCP - Assigned PCP 06/16/18 08/13/18 Noreen Flores APRN LIQUEFIED NATURAL GAS PLANT OPERATOR [address] [place] [address] [place] [address] PCP - General Nurse Practitioner 01/09/19 12/12/21 Sudha Greene NP [address] [address] PCP - General 11/01/22 Noreen Flores APRN LIQUEFIED NATURAL GAS PLANT OPERATOR [address] [place] [address] [place] [address] Assigned PCP 06/16/18 05/26/22 Kalyan Galvan Personal Advocate & Liaison (PAL) 08/08/19 04/26/21 [facility] [address] [place] [address] [place] [phone] Pharmacist Pharmacist 10/14/19 12/01/20 Eduardo Sharma MD [address] [place] [address] Assigned Sleep Provider 04/02/2005/07 Rios Monteiro MD [address] [place] [address] 330937 Assigned Musculoskeletal Provider 04/02/20 08/24/20 Marcelo Artis, PA-C [address] [place] [address] 300 [place] [address] Assigned Musculoskeletal Provider 08/25/20 08/20/21 Rodrigo Man PA-C [address] [place] [place] [address] Assigned Surgical Provider 08/25/20 11/27/20 Noreen Flores APRN LIQUEFIED NATURAL GAS PLANT OPERATOR 3305 [facility] [place] [address] Assigned PCP 08/05/22 03/16/23 Agatha Null DPM, Podiatry/Foot and Ankle Surgery [address] [place] [address] [place] [address] Assigned Musculoskeletal Provider 11/04/22 Clinic - [facility] [address] [facility] [address] [place] [address] Assigned PCP 07/05/23 12/31/23 documented as of this encounter
--- OUTSIDE RECORDS SUMMARY | 2024-03-27 13:16 | XMS_ITS | Encounter Summary ---
Author Organization [place] Address [address] [place] [address] Care Team Providers Care Cloth Shrinking Machine Operator Helper Name Role Phone Selma Good APRN WELL DRILL OPERATOR HELPER CABLE TOOL Primary Care Pro vider Vanda Guerrero MD Primary Care Provider [phone] Vanda Guerrero MD Unavailable [phone] Jeana-JdNoreen castro APRN, CNP Unavailable Jeana-JdNoreen castro APRN, CNP Unavailable JeanaNoreen Garcia APRN WELL DRILL OPERATOR HELPER CABLE TOOL Primary Car e Provider Kalyan Galvan Unavailable Unavailable Lashae Trevino [facility] Unavailable [phone] Eduardo Sharma MD Unavailable Rios Monteiro MD Unavailable [phone] Marcelo Artis PA-C Unavailable [phone] Rodrigo Man PA-C Unavailable [phone] Jeana-Noreen Miles APRN WELL DRILL OPERATOR HELPER CABLE TOOL Unavailable Sudha Greene NP Primary Care Provider Agatha NullM, Podiatry /Foot and Ankle Surgery Unavailable [facility] Unavailable Encounter Details Date Type Department Care Team (Late st Contact Info) Description 07/12/2012 [facility] [place] [phone] Selma Good APRN WELL DRILL OPERATOR HELPER CABLE TOOL [address] [place] [address] [place] [address] Social History Tobacco Use Types Packs/Day Years [...] Start Date End Date Selma Good APRN WELL DRILL OPERATOR HELPER CABLE TOOL [address] [place] [address] [place] [address] PCP - General 04/09/08 04/07/15 Vanda Guerrero MD [address] [place] [address] [place] [address] PCP - General Internal Medicine 04/08/15 01/08/19 Vanda Guerrero MD [address] [place] [address] [place] [address] PCP - Assigned PCP 07/24/16 06/15/18 Noreen Flores APRN WELL DRILL OPERATOR HELPER CABLE TOOL [address] [place] [address] [place] [address] PCP - Assigned PCP 06/16/18 08/13/18 Noreen Flores APRN WELL DRILL OPERATOR HELPER CABLE TOOL [address] [place] [address] [place] [address] PCP - General Nurse Practitioner 01/09/19 12/12/21 Sudha Greene, [place] [address] [address] PCP - General 11/01/22 Noreen Flores APRN WELL DRILL OPERATOR HELPER CABLE TOOL [address] [place] [address] [place] [address] Assigned PCP 06/16/18 05/26/22 Kaylan Galvan Personal Advocate & Liaison (PAL) 08/08/19 04/26/21 [facility] [place] [phone] Pharmacist Pharmacist 10/14/19 12/01/20 Eduardo Sharma MD [address] [facility] [address] [place] [address] Assigned Sleep Provider 04/02/2005/07 [place] [address] [place] [address] [place] [address] Assigned Musculoskeletal Provider 04/02/20 08/24/20 Marcelo Artis, PARejiC [address] [place] [address] [place] [address] Assigned Musculoskeletal Provider 08/25/20 08/20/21 Rodrigo Man PA-C [address] [place] [place] [address] Assigned Surgical Provider 08/25/20 11/27/20 Noreen Flores APRN WELL DRILL OPERATOR HELPER CABLE TOOL 3305 [facility] [place] [address] Assigned PCP 08/05/22 03/16/23 Agatha Null DPM, Podiatry/Foot and Ankle Surgery [address] [place] [address] [place] [address] Assigned Musculoskeletal Provider 11/04/22 [facility] [address] [facility] [place] [address] Assigned PCP 07/05/23 12/31/23 documented as of this encounter
--- OUTSIDE RECORDS SUMMARY | 2024-03-27 13:16 | XMS_ITS | Encounter Summary ---
Author Organization [facility] Address [address] [place] [address] Care Team Providers Care Baster Hand Name Role Phone [place] Good APRN HEAT TRANSFER TECHNICIAN Primary Care Pro vider Vanda Guerrero MD Primary Care Provider [phone] Vanda Guerrero MD Unavailable [phone] Jeana-JdNoreen castro APRN, CNP Unavailable Jeana-JdNoreen castro APRN, CNP Unavailable JeanaNoreen Garcia APRN HEAT TRANSFER TECHNICIAN Primary Car e Provider Kalyan Galvan Unavailable Unavailable Lashae Trevino [facility] Unavailable [phone] Eduardo Sharma MD Unavailable Rios Monteiro MD Unavailable [phone] Marcelo Artis PA-C Unavailable [phone] Rodrigo Man PA-C Unavailable [phone] Jeana-Noreen Miles APRN HEAT TRANSFER TECHNICIAN Unavailable Sudha Greene NP Primary Care Provider Agatha NullM, Podiatry /Foot and Ankle Surgery Unavailable [facility] Unavailable Encounter Details Date Type Department Care Team (Late st Contact Info) Description 05/21/2013 [facility] [place] [address] [place] [address] Alejo Casas Social History [...] documented as of this encounter Care Teams Baster Hand Relationship Specialty Start Date End Date [place] Good APRN HEAT TRANSFER TECHNICIAN [address] [facility] [place] [address] PCP - General 04/09/08 04/07/15 Vanda Guerrero MD [address] [facility] [place] [address] PCP - General Internal Medicine 04/08/15 01/08/19 Vanda Guerrero MD [address] [place] [address] [place] [address] PCP - Assigned PCP 07/24/16 06/15/18 Noreen Flores APRN HEAT TRANSFER TECHNICIAN [address] [place] [address] [place] [address] PCP - Assigned PCP 06/16/18 08/13/18 Noreen Flores APRN HEAT TRANSFER TECHNICIAN [address] [facility] [place] [address] PCP - General Nurse Practitioner 01/09/19 12/12/21 Sudha Greene NP [address] [address] PCP - General 11/01/22 Noreen Flores APRN HEAT TRANSFER TECHNICIAN [address] [facility] [place] [address] Assigned PCP 06/16/18 05/26/22 Kalyan Galvan Personal Advocate & Liaison (PAL) 08/08/19 04/26/21 [facility] [address] [place] [address] [place] [address] Pharmacist Pharmacist 10/14/19 12/01/20 Eduardo Sharma MD [address] [facility] 103 [place] [address] Assigned Sleep Provider 04/02/2005/07 [place] [address] [facility] 300 [place] [address] Assigned Musculoskeletal Provider 04/02/20 08/24/20 Marcelo Artis PA-C 229[address] [facility] 300 [place] [address] Assigned Musculoskeletal Provider 08/25/20 08/20/21 Rodrigo Man PA-C [address] [place] [address] Assigned Surgical Provider 08/25/20 11/27/20 Noreen Flores APRN HEAT TRANSFER TECHNICIAN [address] [facility] [place] [address] Assigned PCP 08/05/22 03/16/23 Agatha Null DPM, Podiatry/Foot and Ankle Surgery [address] [place] [address] [place] [address] Assigned Musculoskeletal Provider 11/04/22 Clinic - [facility] 3[address] [facility] [place] [address] Assigned PCP 07/05/23 12/31/23 documented as of this encounter
--- OUTSIDE RECORDS SUMMARY | 2024-03-27 13:16 | XMS_ITS | Encounter Summary ---
Author Organization [facility] Address [address] [place] [address] Care Team Providers Care Butcher Name Role Phone [place] Good APRN VOLUNTEER SERVICES DIRECTOR Primary Care Pro vider Vanda Guerrero MD Primary Care Provider [phone] Vanda Guerrero MD Unavailable [phone] Jeana-JdNoreen castro APRN, CNP Unavailable Jeana-JdNoreen castro APRN, CNP Unavailable JeanaRejiJdNoreen castro APRN, CNP Primary Car e Provider Kalyan Galvan Unavailable Unavailable Lashae Trevino [facility] Unavailable [phone] Eduardo Sharma MD Unavailable Rios Monteiro MD Unavailable [phone] Marcelo Artis PA-C Unavailable [phone] Rodrigo ManC Unavailable [phone] Jeana-Noreen Miles APRN VOLUNTEER SERVICES DIRECTOR Unavailable Sudha Greene NP Primary Care Provider [phone] Agatha NullM, Podiatry /Foot and Ankle Surgery Unavailable [facility] Unavailable Reason for Visit * Reason Onset Date Comments Medication Question 05/29/2012 wellbutrin Encounter Details Date Type Department Care Team (Late st Contact Info) Description 05/29/2012 My[facility] Medical Advice [address] [place] [phone] [place] Good APRN VOLUNTEER SERVICES DIRECTOR [address] [place] [address] [place] [address] Medication Question (wellbutrin) Social History Tobacco Use [...] of status migrainosus Major depressive disorder, recurrent (H) Major depressive disorder, recurrent episode, unspecified Fibromyalgia Mylagia and myositis, unspecified documented in this encounter Additional Health Concerns Infection Onset Date Last Indicated Resolved Time Rule Out COVID-19 08/25/2020 08/25/2020 08/26/2020 3:23 PM CDT Rule Out COVID-19 11/26/2022 11/26/2022 11/27/2022 3:38 PM CDT documented as of this encounter Care Teams Butcher Relationship Specialty Start Date End Date [place] Good, SEAN VOLUNTEER SERVICES DIRECTOR [address] [place] [address] [place] [address] PCP - General 04/09/08 04/07/15 Vanda Guerrero MD [address] [place] [address] [place] [address] PCP - General Internal Medicine 04/08/15 01/08/19 Vanda Guerrero MD [address] [place] [address] [place] [address] PCP - Assigned PCP 07/24/16 06/15/18 Noreen Flores APRN VOLUNTEER SERVICES DIRECTOR [address] [place] [address] [place] [address] PCP - Assigned PCP 06/16/18 08/13/18 Noreen Flores APRN VOLUNTEER SERVICES DIRECTOR [address] [place] [address] [place] [address] PCP - General Nurse Practitioner 01/09/19 12/12/21 Sudha Greene, MAURICIO [address] [address] PCP - General 11/01/22 Noreen Flores APRN VOLUNTEER SERVICES DIRECTOR [address] [place] [address] [place] [address] Assigned PCP 06/16/18 05/26/22 Kalyan Galvan Personal Advocate & Liaison (PAL) 08/08/19 04/26/21 [facility] [address] [facility] [place] [id number] Pharmacist Pharmacist 10/14/19 12/01/20 Eduardo Sharma MD [address] [facility] 103 [place] [id number] Assigned Sleep Provider 04/02/2005/07 [place] [address] [facility] 300 [place] [address] Assigned Musculoskeletal Provider 04/02/20 08/24/20 Marcelo Artis PA-C 24188 [facility] 300 [place] [address] Assigned Musculoskeletal Provider 08/25/20 08/20/21 Rodrigo Man PA-C [address] [address] Assigned Surgical Provider 08/25/20 11/27/20 Noreen Flores APRN CNP [address] [place] [address] [place] [address] Assigned PCP 08/05/22 03/16/23 Agatha Null DPM, Podiatry/Foot and Ankle Surgery [address] [facility] 300 [place] [address] Assigned Musculoskeletal Provider 11/04/22 [facility] 3[address] [place] [place] [address] Assigned PCP 07/05/23 12/31/23 documented as of this encounter
--- OUTSIDE RECORDS SUMMARY | 2024-03-27 13:16 | XMS_ITS | Encounter Summary ---
Author Organization [facility] Address [address] [place] [address] Care Team Providers Care Ice Cream Server Name Role Phone [place]ma Good APRN ROLLING MILL OPERATOR HELPER Primary Care Pro vider Vanda Guerrero MD Primary Care Provider [phone] Vanda Guerrero MD Unavailable [phone] Jeana-JdNoreen castro APRN, CNP Unavailable Jeana-JdNoreen castro APRN, CNP Unavailable JeanaNoreen Garcia APRN ROLLING MILL OPERATOR HELPER Primary Car e Provider Kalyan Galvan Unavailable Unavailable Lashae Trevino [facility] Unavailable [phone] Eduardo Sharma MD Unavailable Rios Monteiro MD Unavailable [phone] Marcelo Artis PA-C Unavailable [phone] Rodrigo Man PA-C Unavailable [phone] Jeana-Noreen Miles APRN ROLLING MILL OPERATOR HELPER Unavailable Sudha Greene NP Primary Care Provider Agatha NullM, Podiatry /Foot and Ankle Surgery Unavailable [facility] Unavailable Encounter Details Date Type Department Care Team (Late st Contact Info) Description 04/24/2011 [facility] [place] [phone] Alejo [...] documented as of this encounter Care Teams Ice Cream Server Relationship Specialty Start Date End Date [place] Good APRN ROLLING MILL OPERATOR HELPER [address] [facility] [place] [address] PCP - General 04/09/08 04/07/15 Vanda Guerrero MD [facility] [place] [address] PCP - General Internal Medicine 04/08/15 01/08/19 Vanda Guerrero MD [address] [place] [address] [place] [address] PCP - Assigned PCP 07/24/16 06/15/18 Noreen Flores APRN ROLLING MILL OPERATOR HELPER [facility] [place] [address] PCP - Assigned PCP 06/16/18 08/13/18 Noreen Flores APRN ROLLING MILL OPERATOR HELPER [address] [place] [address] [place] [address] PCP - General Nurse Practitioner 01/09/19 12/12/21 Sudha Greene NP [address] [address] PCP - General 11/01/22 Noreen Flores APRN ROLLING MILL OPERATOR HELPER [address] [place] [address] [place] [address] Assigned PCP 06/16/18 05/26/22 Kalyan Galvan Personal Advocate & Liaison (PAL) 08/08/19 04/26/21 [facility] [address] [place] [address] [place] [address] Pharmacist Pharmacist 10/14/19 12/01/20 Eduardo Sharma MD [address] [place] 103 [place] [address] Assigned Sleep Provider 04/02/2005/07 [place] [address] [facility] 300 [place] [address] Assigned Musculoskeletal Provider 04/02/20 08/24/20 Marcelo Artis PA-C [address] [facility] [place] 300 [place] [address] Assigned Musculoskeletal Provider 08/25/20 08/20/21 Rodrigo Man PA-C [address] [place] 450 [place] [address] Assigned Surgical Provider 08/25/20 11/27/20 Noreen Flores APRN ROLLING MILL OPERATOR HELPER [address] [facility] [place] [address] Assigned PCP 08/05/22 03/16/23 Agatha Null DPM, Podiatry/Foot and Ankle Surgery [address] [place] 300 [place] [address] Assigned Musculoskeletal Provider 11/04/22 Clinic - N[facility] 3300 [facility] [place] [address] Assigned PCP 07/05/23 12/31/23 documented as of this encounter
--- OUTSIDE RECORDS SUMMARY | 2024-03-27 13:16 | XMS_ITS | Encounter Summary ---
Author Organization [facility] [place] Address [address] [place] [address] Care Team Providers Care Windows Support Engineer Name Role Phone [place] Good APRN LANDSCAPING CREW LEADER Primary Care Pro vider Vanda Guerrero MD Primary Care Provider [phone] Vanda Guerrero MD Unavailable [phone] Jeana-JdNoreen castro APRN, CNP Unavailable Jeana-JdNoreen castro APRN, CNP Unavailable JeanaNoreen Garcia APRN LANDSCAPING CREW LEADER Primary Car e Provider Kalyan Galvan Unavailable Unavailable Lashae Trevino [facility] Unavailable [phone] Eduardo Sharma MD Unavailable Rios Monteiro MD Unavailable [phone] Marcelo Artis PA-C Unavailable [phone] Rodrigo Man PA-C Unavailable [phone] Jeana-Noreen Miles APRN LANDSCAPING CREW LEADER Unavailable Sudha Greene NP Primary Care Provider Agatha NullM, Podiatry /Foot and Ankle Surgery Unavailable [facility] Unavailable Encounter Details Date Type Department Care Team (Late st Contact Info) Description 08/17/2014 My[facility] Medical Advice [facility] [address] [place] [phone] Day Greene APRN LANDSCAPING CREW LEADER [address] [place] [address] [address] [place] [address] Social History Tobacco Use Types Packs/Day Years [...] as of this encounter Care Teams Windows Support Engineer Relationship Specialty Start Date End Date [place] Good APRN LANDSCAPING CREW LEADER [address] [place] [address] [place] [address] PCP - General 04/09/08 04/07/15 Vanda Guerrero MD [address] [place] [address] [place] [address] PCP - General Internal Medicine 04/08/15 01/08/19 Vanda Guerrero MD [address] [place] [address] [place] [address] PCP - Assigned PCP 07/24/16 06/15/18 Noreen Flores APRN LANDSCAPING CREW LEADER [address] [place] [address] [place] [address] PCP - Assigned PCP 06/16/18 08/13/18 Noreen Flores APRN LANDSCAPING CREW LEADER [address] [place] [address] [place] [address] PCP - General Nurse Practitioner 01/09/19 12/12/21 Sudha Greene, MAURICIO [address] [address] PCP - General 11/01/22 Noreen Flores APRN LANDSCAPING CREW LEADER [address] [place] [address] [place] [address] Assigned PCP 06/16/18 05/26/22 Kalyan Galvan Personal Advocate & Liaison (PAL) 08/08/19 04/26/21 Lashae Trevino [facility] [address] [place] [address] [place] [phone] Pharmacist Pharmacist 10/14/19 12/01/20 Eduardo Sharma MD [address] [place] [address] Assigned Sleep Provider 04/02/2005/07 [place] [address] [employer] [facility] 300 [place] [address] Assigned Musculoskeletal Provider 04/02/20 08/24/20 Marcelo Artis PARejiC [address] [facility] 300 [place] [address] Assigned Musculoskeletal Provider 08/25/20 08/20/21 Rodrigo Man PA-C [address] [place] [address] [place] [address] Assigned Surgical Provider 08/25/20 11/27/20 Noreen Flores APRN LANDSCAPING CREW LEADER 3305 [facility] [place] [address] Assigned PCP 08/05/22 03/16/23 Agatha Null DPM, Podiatry/Foot and Ankle Surgery [address] [place] [address] [place] [address] Assigned Musculoskeletal Provider 11/04/22 Clinic - [facility] 3305 [facility] [place] [address] Assigned PCP 07/05/23 12/31/23 documented as of this encounter
--- OUTSIDE RECORDS SUMMARY | 2024-03-27 13:16 | XMS_ITS | Encounter Summary ---
Author Organization [facility] Address [address] [place] [address] Care Team Providers Care Correctional Medicine Physician Name Role Phone [place] Good APRN CONSTRUCTION ADMINISTRATOR Primary Care Pro vider Vanda Guerrero MD Primary Care Provider [phone] Vanda Guerrero MD Unavailable [phone] Jeana-JdNoreen castro APRN, CNP Unavailable Jeana-JdNoreen castro APRN, CNP Unavailable JeanaRejiJdNoreen castro APRN, CNP Primary Car e Provider Kalyan Galvan Unavailable Unavailable Lashae Trevino [facility] Unavailable [phone] Eduardo Sharma MD Unavailable Rios Monteiro MD Unavailable [phone] Marcelo Artis PA-C Unavailable [phone] Rodrigo ManC Unavailable [phone] Jeana-Noreen Miles APRN CONSTRUCTION ADMINISTRATOR Unavailable Sudha Greene NP Primary Care Provider Agatha NullM, Podiatry /Foot and Ankle Surgery Unavailable [facility] Unavailable Reason for Visit * Reason Onset Date Comments Vaginal Problem 05/24/2011 itchy -worse wit h cream Encounter Details Date Type Department Care Team (Late st Contact Info) Description 05/24/2011 [facility] [address] [place] [address] [place] [phone] [place] Good, AUGER SUPERVISOR CONSTRUCTION ADMINISTRATOR [address] [facility] [place] [address] Vaginal Problem (itchy -worse with cream ) [...] as of this encounter Care Teams Correctional Medicine Physician Relationship Specialty Start Date End Date [place] Good, SEAN CONSTRUCTION ADMINISTRATOR [address] [place] [address] [place] [address] PCP - General 04/09/08 04/07/15 Vanda Guerrero MD [address] [place] [address] [place] [address] PCP - General Internal Medicine 04/08/15 01/08/19 Vanda Guerrero MD [address] [place] [address] [place] [address] PCP - Assigned PCP 07/24/16 06/15/18 Noreen Flores APRN CONSTRUCTION ADMINISTRATOR [address] [facility] [place] [address] PCP - Assigned PCP 06/16/18 08/13/18 Noreen Flores APRN CONSTRUCTION ADMINISTRATOR [address] [place] [address] [place] [address] PCP - General Nurse Practitioner 01/09/19 12/12/21 Sudha Greene NP [address] [address] PCP - General 11/01/22 Noreen Flores APRN CONSTRUCTION ADMINISTRATOR [address] [place] [address] [place] [address] Assigned PCP 06/16/18 05/26/22 Kalyan Galvan Personal Advocate & Liaison (PAL) 08/08/19 04/26/21 Lashae Trevino, [facility] [address] [place] [address] [place] [address] Pharmacist Pharmacist 10/14/19 12/01/20 Eduardo Sharma MD 6363 [facility] 103 [place], [place] 56[address]35 Assigned Sleep Provider 04/02/2005/07 Rios Monteiro MD [address] [place] [address] 300 [place] [address] Assigned Musculoskeletal Provider 04/02/20 08/24/20 Marcelo Artis PA-C [address] [facility] 300 [place] [address] Assigned Musculoskeletal Provider 08/25/20 08/20/21 Rodrigo Man PA-C [address]on [facility] 450 [place] [address] Assigned Surgical Provider 08/25/20 11/27/20 Noreen Flores APRN CONSTRUCTION ADMINISTRATOR [address] [place] [address] [place] [address] Assigned PCP 08/05/22 03/16/23 Agatha Null DPM, Podiatry/Foot and Ankle Surgery [address] [address] [facility] 300 [place] [address] Assigned Musculoskeletal Provider 11/04/22 Clinic - [facility] 3305 [facility] [place] [id number] Assigned PCP 07/05/23 12/31/23 documented as of this encounter
--- OUTSIDE RECORDS SUMMARY | 2024-03-27 13:16 | XMS_ITS | Encounter Summary ---
Author Organization [facility] Address [address] [place] [address] Care Team Providers Care Deputy Court Name Role Phone Vanda Guerrero MD Primary Care Provider [phone] Vanda Guerrero MD Unavailable [phone] Jeana-Noreen Miles APRN PHOTOENGRAVING ETCHER Unavailable Jeana-Noreen Miles APRN PHOTOENGRAVING ETCHER Unavailable Jeana-JdNoreen castro STRATEGIC MARKETING MANAGER PHOTOENGRAVING ETCHER Primary Car e Provider Kalyan Galvan Unavailable Unavailable Lashae Trevino [facility] Unavailable [phone] Eduardo Sharma MD Unavailable Rios Monteiro MD Unavailable [phone] Marcelo Artis PA-C Unavailable [phone] Rodrigo Man PA-C Unavailable Jeana-Noreen Miles APRN PHOTOENGRAVING ETCHER Unavailable Sudha Greene NP Primary Care Provider Agatha Null DPM, Podiatry /Foot and Ankle Surgery Unavailable [facility] Unavailable Encounter Details Date Type Department Care Team (Late st Contact Info) Description 02/11/2016 [place] [phone] Vanda Guerrero MD [address] [place] [address] [place] [address] Social History Tobacco Use Types Packs/Day Years [...] documented as of this encounter Care Teams Deputy Court Relationship Specialty Start Date End Date Vanda Guerrero MD [address] [place] [address] [place] [address] PCP - General Internal Medicine 04/08/15 01/08/19 Vanda Guerrero MD [address] [place] [address] [place] [address] PCP - Assigned PCP 07/24/16 06/15/18 Noreen Flores APRN PHOTOENGRAVING ETCHER [address] [place] [address] [place] [address] PCP - Assigned PCP 06/16/18 08/13/18 Noreen Flores APRN PHOTOENGRAVING ETCHER [address] [place] [address] [place] [address] PCP - General Nurse Practitioner 01/09/19 12/12/21 Sudha Greene NP [facility] [address] [place] [address] PCP - General 11/01/22 Noreen Flores APRN PHOTOENGRAVING ETCHER [address] [place] [address] [place] [address] Assigned PCP 06/16/18 05/26/22 Kalyan Galvan Personal Advocate & Liaison (PAL) 08/08/19 04/26/21 Lashae Trevino, [facility] [address] [place] [address] [place] [address] Pharmacist Pharmacist 10/14/19 12/01/20 Eduardo Sharma MD [address] [place] [address] [place] 618375 Assigned Sleep Provider 04/02/2005/07 [place] [address] [place] [address] [place] [address] Assigned Musculoskeletal Provider 04/02/20 08/24/20 Marcelo Artis PA-C [address] [place] [address] [place] [address] Assigned Musculoskeletal Provider 08/25/20 08/20/21 Rodrigo Man PA-C [address] [place] [address] [place] [address] Assigned Surgical Provider 08/25/20 11/27/20 Noreen Flores APRN PHOTOENGRAVING ETCHER 3305 [facility] [place] [address] Assigned PCP 08/05/22 03/16/23 Agatha Null DPM, Podiatry/Foot and Ankle Surgery [address] [place] [address] Assigned Musculoskeletal Provider 11/04/22 Clinic - N[facility] 3305 [facility] [place] [id number] Assigned PCP 07/05/23 12/31/23 documented as of this encounter
--- OUTSIDE RECORDS SUMMARY | 2024-03-27 13:16 | XMS_ITS | Encounter Summary ---
Author Organization [place] Address [address] [place] [address] Care Team Providers Care Firer Helper Name Role Phone Selma Good APRN FOREIGN EXCHANGE TRADER Primary Care Pro vider Vanda Guerrero MD Primary Care Provider [phone] Vanda Guerrero MD Unavailable [phone] Jeana-JdNoreen castro APRN, CNP Unavailable Jeana-JdNoreen castro APRN, CNP Unavailable JeanaRejiJdNoreen castro APRN, CNP Primary Car e Provider Kalyan Galvan Unavailable Unavailable Lashae Trevino [facility] Unavailable [phone] Eduardo Sharma MD Unavailable Rios Monteiro MD Unavailable [phone] Marcelo Artis PA-C Unavailable [phone] Rodrigo ManC Unavailable [phone] Jeana-Noreen Miles APRN FOREIGN EXCHANGE TRADER Unavailable Sudha Greene NP Primary Care Provider [phone] Agatha NullM, Podiatry /Foot and Ankle Surgery Unavailable [facility] Unavailable Reason for Visit * Reason Onset Date Comments Medication Question 11/23/2011 topamax Encounter Details Date Type Department Care Team (Late st Contact Info) Description 11/23/2011 [facility] [address] [place] [address] [place] [address] Selma Good APRN FOREIGN EXCHANGE TRADER [address] [facility] [place] [address] Medication Question (topamax) Social History Tobacco Use [...] as of this encounter Care Teams Firer Helper Relationship Specialty Start Date End Date Selma Good APRN FOREIGN EXCHANGE TRADER [address] [place] [address] [place] [address] PCP - General 04/09/08 04/07/15 Vanda Guerrero MD [address] [place] [address] [place] [address] PCP - General Internal Medicine 04/08/15 01/08/19 Vanda Guerrero MD [address] [place] [address] [place] [address] PCP - Assigned PCP 07/24/16 06/15/18 Noreen Flores APRN FOREIGN EXCHANGE TRADER [address] [place] [address] [place] [address] PCP - Assigned PCP 06/16/18 08/13/18 Noreen Flores APRN FOREIGN EXCHANGE TRADER [address] [place] [address] [place] [address] PCP - General Nurse Practitioner 01/09/19 12/12/21 Sudha Greene NP [address] [address] PCP - General 11/01/22 Noreen Flores APRN FOREIGN EXCHANGE TRADER [address] [place] [address] [place] [address] Assigned PCP 06/16/18 05/26/22 Kalyan Galvan Personal Advocate & Liaison (PAL) 08/08/19 04/26/21 [facility] [address] [place] [address] [place] [address] Pharmacist Pharmacist 10/14/19 12/01/20 Eduardo Sharma MD [address] [address] Assigned Sleep Provider 04/02/2005/07 Rios Monteiro MD [address] [place] [address] Assigned Musculoskeletal Provider 04/02/20 08/24/20 Marcelo Artis, PA-C [address] [place] [address] 300 [place] [address] Assigned Musculoskeletal Provider 08/25/20 08/20/21 Rodrigo Man PA-C [address] [place] [address] [place] [address] Assigned Surgical Provider 08/25/20 11/27/20 Noreen Flores APRN FOREIGN EXCHANGE TRADER [address]305 [facility] [place] [address] Assigned PCP 08/05/22 03/16/23 Agatha Null DPM, Podiatry/Foot and Ankle Surgery [address] [place] [facility] 300 [place] [address] Assigned Musculoskeletal Provider 11/04/22 Clinic - Nita [facility]ring[facility] 3305 [facility] [place] [id number] Assigned PCP 07/05/23 12/31/23 documented as of this encounter
--- OUTSIDE RECORDS SUMMARY | 2024-03-27 13:16 | XMS_ITS | Encounter Summary ---
Author Organization [place] Address [address] [place] [address] Care Team Providers Care Crusher Assembler Name Role Phone Selma Good APRN CURTAIN SUPERVISOR Primary Care Pro vider Vanda Guerrero MD Primary Care Provider [phone] Vanda Guerrero MD Unavailable [phone] Jeana-JdNoreen castro APRN, CNP Unavailable Jeana-JdNoreen castro APRN, CNP Unavailable JeanaNoreen Garcia APRN CURTAIN SUPERVISOR Primary Car e Provider Kalyan Galvan Unavailable Unavailable Lashae Trevino [facility] Unavailable [phone] Eduardo Sharma MD Unavailable Rios Monteiro MD Unavailable [phone] Marcelo Artis PA-C Unavailable [phone] Rodrigo Man PA-C Unavailable [phone] Jeana-Noreen Miles APRN CURTAIN SUPERVISOR Unavailable Sudha Greene NP Primary Care Provider [phone] Agatha NullM, Podiatry /Foot and Ankle Surgery Unavailable [facility] Unavailable Encounter Details Date Type Department Care Team (Late st Contact Info) Description 09/24/2014 MyC Medical Advice [address] [place] [phone] Shante Joya, RERE Social History Tobacco Use [...] as of this encounter Care Teams Crusher Assembler Relationship Specialty Start Date End Date Selma Good APRN CURTAIN SUPERVISOR [address] [facility] [place] [address] PCP - General 04/09/08 04/07/15 Vanda Guerrero MD [address] [facility] [place] [address] PCP - General Internal Medicine 04/08/15 01/08/19 Vanda Guerrero MD [address] [facility] [place] [address] PCP - Assigned PCP 07/24/16 06/15/18 Noreen Flores APRN CURTAIN SUPERVISOR [address] [facility] [place] [address] PCP - Assigned PCP 06/16/18 08/13/18 Noreen Flores APRN CURTAIN SUPERVISOR [facility]5 [facility] [place] [address] PCP - General Nurse Practitioner 01/09/19 12/12/21 Sudha Greene NP [address] [address] PCP - General 11/01/22 Noreen Flores APRN CURTAIN SUPERVISOR [address] [place] [address] [place] [address] Assigned PCP 06/16/18 05/26/22 Kalyan Galvan Personal Advocate & Liaison (PAL) 08/08/19 04/26/21 Lashae Trevino [facility] [address] [place] [address] [place] [address] Pharmacist Pharmacist 10/14/19 12/01/20 Eduardo Sharma MD [address] [address] Assigned Sleep Provider 04/02/2005/07 Rios Monteiro MD [id number] [place] [address] 300 [place] [address] Assigned Musculoskeletal Provider 04/02/20 08/24/20 Marcelo Artis PA-C 164[address] [facility] 300 [place] [address] Assigned Musculoskeletal Provider 08/25/20 08/20/21 Rodrigo Man PA-C [address] [place] [address] Assigned Surgical Provider 08/25/20 11/27/20 Noreen Flores APRN CURTAIN SUPERVISOR [address] [facility] [place] [address] Assigned PCP 08/05/22 03/16/23 Agatha Null DPM, Podiatry/Foot and Ankle Surgery [address] [place] [address] [place] [id number] Assigned Musculoskeletal Provider 11/04/22 Clinic - Nita Pringle [facility] [address] [facility] [address] [place] [address] Assigned PCP 07/05/23 12/31/23 documented as of this encounter
--- OUTSIDE RECORDS SUMMARY | 2024-03-27 13:16 | XMS_ITS | Encounter Summary ---
Author Organization [place] Address [address] [place] [address] Care Team Providers Care Operations Plant Attendant Name Role Phone Vanda Guerrero MD Primary Care Provider [phone] Vanda Guerrero MD Unavailable [phone] Jeana-Noreen Miles APRN C JAVA DEVELOPER Unavailable [facility] APRN C JAVA DEVELOPER Unavailable [facility]Jd[facility]en [facility] [employer]OP LEAD C JAVA DEVELOPER Primary Car e Provider Kalyan Galvan Unavailable Unavailable Lashae Trevino [facility] Unavailable Eduardo Sharma MD Unavailable Rios Monteiro MD Unavailable Marcelo Artis PA-C Unavailable Rodrigo Man PA-C Unavailable Jeana-Noreen Miles APRN C JAVA DEVELOPER Unavailable Sudha Grenee NP Primary Care Provider [phone] Agatha Null DPM, Podiatry /Foot and Ankle Surgery Unavailable [facility] Unavailable Reason for Visit * Reason Onset Date Comments Patient/info Update 05/01/2016 foot prob Encounter Details Date Type Department Care Team (Late st Contact Info) Description 05/01/2016 MyC Medical Advice [facility] [address] [place] [address] Agatha Null DPM, Podiatry/Foot and Ankle Surgery [address] [place] [address] Patient/info Update (foot prob) Social History Tobacco [...] as of this encounter Care Teams Operations Plant Attendant Relationship Specialty Start Date End Date Vanda Guerrero MD [address] [place] [address] [place] [address] PCP - General Internal Medicine 04/08/15 01/08/19 Vanda Guerrero MD [address] [place] [address] [place] [address] PCP - Assigned PCP 07/24/16 06/15/18 Noreen Flores APRN CNP [address] [place] [address] [place] [address] PCP - Assigned PCP 06/16/18 08/13/18 Noreen Flores APRN C JAVA DEVELOPER [address] [place] [address] [place] [address] PCP - General Nurse Practitioner 01/09/19 12/12/21 Sudha Greene NP [address] [address] PCP - General 11/01/22 Noreen Flores APRN C JAVA DEVELOPER [address] [place] [address] [place] [address] Assigned PCP 06/16/18 05/26/22 Kalyan Galvan Personal Advocate & Liaison (PAL) 08/08/19 04/26/21 [facility] [address] [place] [address] [place] [address] Pharmacist Pharmacist 10/14/19 12/01/20 Eduardo Sharma MD [address] [address] Assigned Sleep Provider 04/02/2005/07 Rios Monteiro MD [address] [place] [address] Assigned Musculoskeletal Provider 04/02/20 08/24/20 Marcelo Artis PA-C [address] [address] Assigned Musculoskeletal Provider 08/25/20 08/20/21 Rodrigo Man PA-C [address] [place] [address] Assigned Surgical Provider 08/25/20 11/27/20 Noreen Flores APRN C JAVA DEVELOPER [address] [facility] [place] [address] Assigned PCP 08/05/22 03/16/23 Agatha Null DPM, Podiatry/Foot and Ankle Surgery [address] [place] [address] [place] [address] [place] 198687 Assigned Musculoskeletal Provider 11/04/22 [facility] 3305 [facility] [place] [id number] Assigned PCP 07/05/23 12/31/23 documented as of this encounter
--- OUTSIDE RECORDS SUMMARY | 2024-03-27 13:16 | XMS_ITS | Encounter Summary ---
Author Organization [place] Address [address] [place] [address] Care Team Providers Care Director Of Respiratory Therapy Name Role Phone Vanda Guerrero MD Primary Care Provider [phone] Vanda Guerrero MD Unavailable [phone] Jeana-Noreen Miles APRN PLATING EQUIPMENT TENDER Unavailable [facility] APRN PLATING EQUIPMENT TENDER Unavailable [facility]Jd[facility]en castro SENIOR FINANCIAL REPORTING ACCOUNTANT PLATING EQUIPMENT TENDER Primary Car e Provider Kalyan Galvan Unavailable Unavailable Lashae Trevino [facility] Unavailable [phone] Eduardo Sharma MD Unavailable Rios Monteiro MD Unavailable [phone] Marcelo Artis PA-C Unavailable [phone] Rodrigo ManC Unavailable Jeana-Noreen Miles APRN PLATING EQUIPMENT TENDER Unavailable Sudha Greene NP Primary Care Provider Agatha Null DPM, Podiatry /Foot and Ankle Surgery Unavailable [facility] Nita Pringle [facility] Unavailable Reason for Visit * Reason Onset Date Comments Clarification 05/19/2016 Encounter Details Date Type Department Care Team (Late st Contact Info) Description 05/19/[address] [facility] [address] [place] [address] Agatha Null, DPM, Podiatry/Foot and Ankle Surgery [address] [place] [address] Clarification Social History Tobacco Use Types Packs/Day [...] Total Score: 11 05/02/ 016 7:09 AM GUARDIAN AD LITEM documented as of this encounter Care Teams Director Of Respiratory Therapy Relationship Specialty Start Date End Date Vanda Guerrero MD [address] [place] [address] [place] [address] PCP - General Internal Medicine 04/08/15 01/08/19 Vanda Guerrero MD [address] [place] [address] [place] [address] PCP - Assigned PCP 07/24/16 06/15/18 Noreen Flores APRN CNP [address] [place] [address] [place] [address] PCP - Assigned PCP 06/16/18 08/13/18 Noreen Flores APRN PLATING EQUIPMENT TENDER [address] [facility] [place] [address] PCP - General Nurse Practitioner 01/09/19 12/12/21 Sudha Greene NP [address] [address] PCP - General 11/01/22 Noreen Flores APRN PLATING EQUIPMENT TENDER [address] [place] [address] [place] [address] Assigned PCP 06/16/18 05/26/22 Kalyan Galvan Personal Advocate & Liaison (PAL) 08/08/19 04/26/21 [facility] [address] [place] [address] [place] [address] Pharmacist Pharmacist 10/14/19 12/01/20 Eduardo Sharma MD [address] [place] [address] [place] [address] Assigned Sleep Provider 04/02/2005/07 [place] [address] [facility] [place] [address] [place] [address] Assigned Musculoskeletal Provider 04/02/20 08/24/20 Marcelo Artis PA-C [address] [facility] [place] 300 [place] [address] Assigned Musculoskeletal Provider 08/25/20 08/20/21 Rodrigo Man PA-C [address] [place] [address] [place] [address] Assigned Surgical Provider 08/25/20 11/27/20 Noreen Flores APRN PLATING EQUIPMENT TENDER [address] [facility] [place] [address] Assigned PCP 08/05/22 03/16/23 Agatha Null DPM, Podiatry/Foot and Ankle Surgery [address] [place] [address] [place] 760217 Assigned Musculoskeletal Provider 11/04/22 Clinic - Nita P[facility]le [facility] [address] [facility] [place] [address] Assigned PCP 07/05/23 12/31/23 documented as of this encounter
--- OUTSIDE RECORDS SUMMARY | 2024-03-27 13:16 | XMS_ITS | Encounter Summary ---
Author Organization [place] Address [address] [place] [address] Care Team Providers Care Warp Spooler Name Role Phone Selma Good APRN REGISTERED NURSE NURSERY Primary Care Pro vider Vanda Guerrero MD Primary Care Provider [phone] Vanda Guerrero MD Unavailable [phone] Jeana-JdNoreen castro APRN, CNP Unavailable Jeana-JdNoreen castro APRN, CNP Unavailable JeanaNoreen Garcia APRN REGISTERED NURSE NURSERY Primary Car e Provider Kalyan Galvan Unavailable Unavailable Lashae Trevino [facility] Unavailable [phone] Eduardo Sharma MD Unavailable Rios Monteiro MD Unavailable [phone] Marcelo Artis PA-C Unavailable [phone] Rodrigo Man PA-C Unavailable [phone] Jeana-Noreen Miles APRN REGISTERED NURSE NURSERY Unavailable Sudha Greene NP Primary Care Provider Agatha NullM, Podiatry /Foot and Ankle Surgery Unavailable [facility] Unavailable Encounter Details Date Type Department Care Team (Late st Contact Info) Description 05/28/2012 [facility] Medical Advice [address] [place] [address] Alejo Casas Social History [...] documented as of this encounter Care Teams Warp Spooler Relationship Specialty Start Date End Date Selma Good APRN REGISTERED NURSE NURSERY [address] [facility] [place] [address] PCP - General 04/09/08 04/07/15 Vanda Guerrero MD [address] [facility] [place] [address] PCP - General Internal Medicine 04/08/15 01/08/19 Vanda Guerrero MD [address] [place] [address] [place] [address] PCP - Assigned PCP 07/24/16 06/15/18 Noreen Flores APRN REGISTERED NURSE NURSERY [address] [place] [address] [place] [address] PCP - Assigned PCP 06/16/18 08/13/18 Noreen Flores APRN REGISTERED NURSE NURSERY [address] [facility] [place] [address] PCP - General Nurse Practitioner 01/09/19 12/12/21 Sudha Greene NP [address] [address] PCP - General 11/01/22 Noreen Flores APRN REGISTERED NURSE NURSERY [address] [facility] [place] [address] Assigned PCP 06/16/18 05/26/22 Kalyan Galvan Personal Advocate & Liaison (PAL) 08/08/19 04/26/21 [facility] [address] [place] [address] [place] [address] Pharmacist Pharmacist 10/14/19 12/01/20 Eduardo Sharma MD [address] [facility] 103 [place] [address] Assigned Sleep Provider 04/02/2005/07 [place] [address] [facility] 300 [place] [address] Assigned Musculoskeletal Provider 04/02/20 08/24/20 Marcelo Artis PA-C [address] [facility] 300 [place] [address] Assigned Musculoskeletal Provider 08/25/20 08/20/21 Rodrigo Man PA-C [address] [place] [address] Assigned Surgical Provider 08/25/20 11/27/20 Noreen Flores APRN REGISTERED NURSE NURSERY [address] [facility] [place] [address] Assigned PCP 08/05/22 03/16/23 Agatha Null DPM, Podiatry/Foot and Ankle Surgery [address] [place] [address] [place] [address] Assigned Musculoskeletal Provider 11/04/22 Clinic - Nita Pring[facility] [address] [facility] [place] [address] Assigned PCP 07/05/23 12/31/23 documented as of this encounter
--- OUTSIDE RECORDS SUMMARY | 2024-03-27 13:17 | XMS_ITS | Encounter Summary ---
Author Organization [place] Address [address] [place] [address] Care Team Providers Care Digital Production Operator Name Role Phone Selma Good APRN MOLD CHANGER Primary Care Pro vider Vanda Guerrero MD Primary Care Provider [phone] Vanda Guerrero MD Unavailable [phone] Jeana-JdNoreen castro APRN, CNP Unavailable Jeana-JdNoreen castro APRN, CNP Unavailable JeanaRejiJdNoreen castro APRN, CNP Primary Car e Provider Kalyan Galvan Unavailable Unavailable Lashae Trevino [facility] Unavailable [phone] Eduardo Sharma MD Unavailable Rios Monteiro MD Unavailable [phone] Marcelo Artis PA-C Unavailable [phone] Rodrigo ManC Unavailable [phone] Jeana-Noreen Miles APRN MOLD CHANGER Unavailable Sudha Greene NP Primary Care Provider Agatha NullM, Podiatry /Foot and Ankle Surgery Unavailable [facility] Unavailable Reason for Visit * Reason Onset Date Comments Appointment 08/10/2010 next diabetes? Encounter Details Date Type Department Care Team (Late st Contact Info) Description 08/10/2010 [facility] [address] [place] [address] [place] [phone] Selma Good APRN MOLD CHANGER 3305 [facility] [place] [address] Appointment (next diabetes? ) Social History Tobacco [...] as of this encounter Care Teams Digital Production Operator Relationship Specialty Start Date End Date Selma Good APRN MOLD CHANGER [address] [place] [address] [place] [address] PCP - General 04/09/08 04/07/15 Vanda Guerrero MD [address] [place] [address] [place] [address] PCP - General Internal Medicine 04/08/15 01/08/19 Vanda Guerrero MD [address] [place] [address] [place] [address] PCP - Assigned PCP 07/24/16 06/15/18 Noreen Flores APRN MOLD CHANGER [address] [place] [address] [place] [address] PCP - Assigned PCP 06/16/18 08/13/18 Noreen Flores APRN MOLD CHANGER [address] [place] [address] [place] [address] PCP - General Nurse Practitioner 01/09/19 12/12/21 Sudha Greene NP [address] [address] PCP - General 11/01/22 Noreen Flores APRN MOLD CHANGER [address] [place] [address] [place] [address] Assigned PCP 06/16/18 05/26/22 Kalyan Galvan Personal Advocate & Liaison (PAL) 08/08/19 04/26/21 [facility] [address] [place] [address] [place] [phone] Pharmacist Pharmacist 10/14/19 12/01/20 Eduardo Sharma MD [address] [place] [address] Assigned Sleep Provider 04/02/2005/07 Rios Monteiro MD [address] [place] [address] 933967 Assigned Musculoskeletal Provider 04/02/20 08/24/20 Marcelo Artis, PA-C [address] [facility] 300 [place] [address] Assigned Musculoskeletal Provider 08/25/20 08/20/21 Rodrigo Man PA-C [address] [place] [address] Assigned Surgical Provider 08/25/20 11/27/20 Noreen Flores APRN MOLD CHANGER 3305 [facility] [place] [address] Assigned PCP 08/05/22 03/16/23 Agatha Null DPM, Podiatry/Foot and Ankle Surgery [address] [place] [address] [place] [address] Assigned Musculoskeletal Provider 11/04/22 Clinic - N[facility] Pring[facility] [address] [facility] [address] [place] [address] Assigned PCP 07/05/23 12/31/23 documented as of this encounter
--- OUTSIDE RECORDS SUMMARY | 2024-03-27 13:17 | XMS_ITS | Encounter Summary ---
Author Organization [place] Address [address] [place] [address] Care Team Providers Care Multiple Cut Off Saw Operator Name Role Phone Selma Good APRN COREMAKER APPRENTICE Primary Care Pro vider Vanda Guerrero MD Primary Care Provider [phone] Vanda Guerrero MD Unavailable [phone] Jeana-JdNoreen castro APRN, CNP Unavailable Jeana-JdNoreen castro APRN, CNP Unavailable JeanaNoreen Garcia APRN COREMAKER APPRENTICE Primary Car e Provider Kalyan Galvan Unavailable Unavailable Lashae Trevino [facility] Unavailable [phone] Eduardo Sharma MD Unavailable Rios Monteiro MD Unavailable [phone] Marcelo Artis PA-C Unavailable [phone] Rodrigo Man PA-C Unavailable [phone] Jeana-Noreen Miles APRN COREMAKER APPRENTICE Unavailable Sudha Greene NP Primary Care Provider Agatha NullM, Podiatry /Foot and Ankle Surgery Unavailable [facility] Unavailable Encounter Details Date Type [...] as of this encounter Care Teams Multiple Cut Off Saw Operator Relationship Specialty Start Date End Date Selma Good APRN COREMAKER APPRENTICE [address] [place] [address] [place] [address] PCP - General 04/09/08 04/07/15 Vanda Guerrero MD [address] [place] [address] [place] [address] PCP - General Internal Medicine 04/08/15 01/08/19 Vanda Guerrero MD [address] [place] [address] [place] [address] PCP - Assigned PCP 07/24/16 06/15/18 Noreen Flores APRN COREMAKER APPRENTICE [address] [place] [address] [place] [address] PCP - Assigned PCP 06/16/18 08/13/18 Noreen Flores APRN COREMAKER APPRENTICE [address] [place] [address] [place] [address] PCP - General Nurse Practitioner 01/09/19 12/12/21 Sudha Greene NP [address] [address] PCP - General 11/01/22 Noreen Flores APRN COREMAKER APPRENTICE [address] [place] [address] [place] [address] Assigned PCP 06/16/18 05/26/22 Kalyan Galvan Personal Advocate & Liaison (PAL) 08/08/19 04/26/21 Lashae Treivno, [facility] [address] [facility] [place] [address] Pharmacist Pharmacist 10/14/19 12/01/20 Eduardo Sharma MD [address] [place] [address] [place] [id number] Assigned Sleep Provider 04/02/2005/07 [place] [address] [facility] [place] [address] [place] [address] Assigned Musculoskeletal Provider 04/02/20 08/24/20 Marcleo Artis PA-C [address] [place] [address] [place] [address] Assigned Musculoskeletal Provider 08/25/20 08/20/21 Rodrigo Man PA-C [address] [place] [address] [place] [address] Assigned Surgical Provider 08/25/20 11/27/20 Noreen Flores APRN COREMAKER APPRENTICE [address] [facility] [place] [address] Assigned PCP 08/05/22 03/16/23 Agatha Null DPM, Podiatry/Foot and Ankle Surgery [address] [place] [address] Assigned Musculoskeletal Provider 11/04/22 [facility] 3305 [facility] [place] [id number] Assigned PCP 07/05/23 12/31/23 documented as of this encounter
--- OUTSIDE RECORDS SUMMARY | 2024-03-27 13:17 | XMS_ITS | Encounter Summary ---
Author Organization [place] Address [address] [place] [address] Care Team Providers Care Mastic Worker Name Role Phone Selma Good APRN BUTCHER HELPER Primary Care Pro vider Vanda Guerrero MD Primary Care Provider [phone] Vanda Guerrero MD Unavailable [phone] Jeana-JdNoreen castro APRN, CNP Unavailable Jeana-JdNoreen castro APRN, CNP Unavailable JeanaNoreen Garcia APRN BUTCHER HELPER Primary Car e Provider Kalyan Galvan Unavailable Unavailable Lashae Trevino [facility] Unavailable [phone] Eduardo Sharma MD Unavailable Rios Monteiro MD Unavailable [phone] Marcelo Artis PA-C Unavailable [phone] Rodrigo Man PA-C Unavailable [phone] Jeana-Noreen Miles APRN BUTCHER HELPER Unavailable Sudha Greene NP Primary Care Provider Agatha NullM, Podiatry /Foot and Ankle Surgery Unavailable [facility] Unavailable Encounter Details Date Type Department Care Team (Late st Contact Info) Description 02/11/2010 [facility] [place] [facility] [facility]an [address] [place] [address] [place] [id number] Alejo Casas Social History [...] documented as of this encounter Care Teams Mastic Worker Relationship Specialty Start Date End Date Selma Good APRN BUTCHER HELPER [address] [facility] [place] [address] PCP - General 04/09/08 04/07/15 Vanda Guerrero MD [facility]5 [facility] [place] [address] PCP - General Internal Medicine 04/08/15 01/08/19 Vanda Guerrero MD [address] [place] [address] [place] [address] PCP - Assigned PCP 07/24/16 06/15/18 Noreen Flores APRN BUTCHER HELPER [facility]5 [facility] [place] [address] PCP - Assigned PCP 06/16/18 08/13/18 Noreen Flores APRN BUTCHER HELPER [address] [place] [address] [place] [address] PCP - General Nurse Practitioner 01/09/19 12/12/21 Sudha Greene NP [address] [address] PCP - General 11/01/22 Noreen Flores APRN BUTCHER HELPER [address] [place] [address] [place] [address] Assigned PCP 06/16/18 05/26/22 Kalyan Galvan Personal Advocate & Liaison (PAL) 08/08/19 04/26/[address] [facility] [address] [place] [address] [place] [address] Pharmacist Pharmacist 10/14/19 12/01/20 Eduardo Sharma MD [address] [place] [address] Assigned Sleep Provider 04/02/2005/07 [place] [address] [facility] 300 [place] [address] Assigned Musculoskeletal Provider 04/02/20 08/24/20 Marcelo Artis PA-C [address] [facility] [address] [place] [address] Assigned Musculoskeletal Provider 08/25/20 08/20/21 Rodrigo Man PA-C [address] [place] [address] [place] [address] Assigned Surgical Provider 08/25/20 11/27/20 Noreen Flores APRN BUTCHER HELPER 3305 [facility] [place] [address] Assigned PCP 08/05/22 03/16/23 Agatha Null DPM, Podiatry/Foot and Ankle Surgery [address] [place] [place] 401[address] Assigned Musculoskeletal Provider 11/04/22 Clinic - [facility] 3309 [facility] [place] [address] Assigned PCP 07/05/23 12/31/23 documented as of this encounter
--- OUTSIDE RECORDS SUMMARY | 2024-03-27 13:17 | XMS_ITS | Encounter Summary ---
Author Organization [place] Address [address] [place] [address] Care Team Providers Care Compliance Counsel Name Role Phone Selma Good APRN ADVERTISING SALES MANAGER Primary Care Pro vider Vanda Guerrero MD Primary Care Provider [phone] Vanda Guerrero MD Unavailable [phone] Jeana-JdNoreen castro APRN, CNP Unavailable Jeana-JdNoreen castro APRN, CNP Unavailable Jeana-JdNoreen castro APRN, CNP Primary Car e Provider Kalyan Galvan Unavailable Unavailable Lashae Trevino [facility] Unavailable [phone] Eduardo Sharma MD Unavailable Rios Monteiro MD Unavailable [phone] Marcelo Artis PA-C Unavailable [phone] Rodrigo ManC Unavailable [phone] Jeana-Noreen Miles APRN ADVERTISING SALES MANAGER Unavailable Sudha Greene NP Primary Care Provider Agatha NullM, Podiatry /Foot and Ankle Surgery Unavailable [facility] Unavailable Reason for Visit * Reason Onset Date Comments Orders 01/17/2010 mammo and U/Ss Encounter Details Date Type Department Care Team (Late st Contact Info) Description 01/17/2010 MyC Medical Advice [facility] [address] [place] [address] [place] [phone] Selma Good APRN ADVERTISING SALES MANAGER 3305 [facility] [place] [address] Orders (mammo and U/Ss) Social History Tobacco [...] Counsel Relationship Specialty Start Date End Date Selma Good APRN ADVERTISING SALES MANAGER [address] [place] [address] [place] [address] PCP - General 04/09/08 04/07/15 Vanda Guerrero MD [address] [place] [address] [place] [address] PCP - General Internal Medicine 04/08/15 01/08/19 Vanda Guerrero MD [address] [place] [address] [place] [address] PCP - Assigned PCP 07/24/16 06/15/18 Noreen Flores APRN ADVERTISING SALES MANAGER [address] [place] [address] [place] [address] PCP - Assigned PCP 06/16/18 08/13/18 Noreen Flores APRN ADVERTISING SALES MANAGER [address] [place] [address] [place] [address] PCP - General Nurse Practitioner 01/09/19 12/12/21 Sudha Greene NP [address] [address] PCP - General 11/01/22 Noreen Flores APRN ADVERTISING SALES MANAGER [address] [place] [address] [place] [address] Assigned PCP 06/16/18 05/26/22 Kalyan Galvan Personal Advocate & Liaison (PAL) 08/08/19 04/26/21 [facility] [address] [place] [address] [place] [address] Pharmacist Pharmacist 10/14/19 12/01/20 Eduardo Sharma MD [address] [address] Assigned Sleep Provider 04/02/2005/07 Rios Monteiro MD [address] [place] [address] Assigned Musculoskeletal Provider 04/02/20 08/24/20 Marcelo Artis, PA-C [address] [place] [address] 300 [place] [address] Assigned Musculoskeletal Provider 08/25/20 08/20/21 Rodrigo Man PA-C [address] [facility] [address] [place] [address] Assigned Surgical Provider 08/25/20 11/27/20 Noreen Flores APRN ADVERTISING SALES MANAGER 3305 [facility] [place] [address] Assigned PCP 08/05/22 03/16/23 Agatha Null DPM, Podiatry/Foot and Ankle Surgery [address] [place] [place] [address] Assigned Musculoskeletal Provider 11/04/22 Clinic - [facility] [address] [facility] [address] [place] [id number] Assigned PCP 07/05/23 12/31/23 documented as of this encounter
--- OUTSIDE RECORDS SUMMARY | 2024-03-27 13:17 | XMS_ITS | Encounter Summary ---
Author Organization [place] Address [address] [place] [address] Care Team Providers Care Personnel Scheduler Name Role Phone Selma Good APRN ALTERNATIVE DISPUTE RESOLUTION MEDIATOR Primary Care Pro vider Vanda Guerrero MD Primary Care Provider [phone] Vanda Guerrero MD Unavailable [phone] Jeana-JdNoreen castro APRN, CNP Unavailable [facility]-JdNoreen castro APRN, CNP Unavailable JeanaRejiJdNoreen castro APRN, CNP Primary Car e Provider Kalyan Galvan Unavailable Unavailable Lashae Trevino [facility] Unavailable [phone] Eduardo Sharma MD Unavailable Rios Monteiro MD Unavailable [phone] Marcelo Artis-Aleyda Unavailable [phone] Rodrigo ManC Unavailable [phone] Jeana-Noreen Miles APRN ALTERNATIVE DISPUTE RESOLUTION MEDIATOR Unavailable Sudha Greene NP Primary Care Provider Agatha NullM, Podiatry /Foot and Ankle Surgery Unavailable [facility] Unavailable Reason for Referral * Referral not Required - Closed Specialty Diagnoses / Procedures Referred By Rylie garcia Referred To Contact Diagnoses Upper back pain Selma Good APRN ALTERNATIVE DISPUTE RESOLUTION MEDIATOR [address] [facility] [place] [address] [place] [facility] [address] [address] [place] [address] Phone: [phone] Referral ID Status Reason Start Date Expiration Date Visits Re quested Visits Authorized [id number] Closed 01/18/2010 01/18/2010 1 1 Comments Coverage of these services is subject to the terms and limitations of your health insurance plan. Please call member services at your health plan with any benefit or coverage questions. [facility] referral to [facility] (Katelyn Colorado M.D.) [phone]. Any CT, MRI or procedures ordered by your specialist must be performed at a [facility] facility OR coordinated by your clinic's referral office at [phone]. If X-rays, CTs or MRIs have been performed, please contact the facility where they were done, to arrange for meat pickler prior to your scheduled appointment. Please bring this referral request to your appointment and present it to your specialist. Reason for Visit * Reason Onset Date Comments Referral 01/17/2010 Encounter Details Date Type Department Care Team (Late st Contact Info) Description 01/17/2010 [facility] [place] Advice [facility] 1440 [facility] [place] [phone] Selma Good APRN ALTERNATIVE DISPUTE RESOLUTION MEDIATOR [address] [facility] [place] [address] Referral Social History Tobacco Use Types Packs/Day [...] CONSULT PLASTIC SURGERY (01/31/2010) Selma Good APRN ALTERNATIVE DISPUTE RESOLUTION MEDIATOR REFERRAL documented in this encounter Visit Diagnoses Diagnosis Upper back pain- Primary Pain in thoracic spine documented in this encounter Additional Health Concerns Infection Onset Date Last Indicated Resolved Time Rule Out COVID-19 08/25/2020 08/25/2020 08/26/2020 3:23 PM CDT Rule Out COVID-19 11/26/2022 11/26/2022 11/27/2022 3:38 PM CDT documented as of this encounter Care Teams Personnel Scheduler Relationship Specialty Start Date End Date Selma Good APRN ALTERNATIVE DISPUTE RESOLUTION MEDIATOR 3305 [facility] [place] [address] PCP - General 04/09/08 04/07/15 Vanda Guerrero MD [address] [place] [address] [place] [address] PCP - General Internal Medicine 04/08/15 01/08/19 Vanda Guerrero MD [address] [place] [address] [place] [address] PCP - Assigned PCP 07/24/16 06/15/18 Noreen Flores APRN ALTERNATIVE DISPUTE RESOLUTION MEDIATOR [address] [place] [address] [place] [address] PCP - Assigned PCP 06/16/18 08/13/18 Noreen Flores APRN ALTERNATIVE DISPUTE RESOLUTION MEDIATOR [address] [place] [address] [place] [address] PCP - General Nurse Practitioner 01/09/19 12/12/21 Sudha Greene NP [address] [address] PCP - General 11/01/22 Noreen Flores APRN ALTERNATIVE DISPUTE RESOLUTION MEDIATOR [address] [place] [address] [place] [address] Assigned PCP 06/16/18 05/26/22 Kalyan Galvan Personal Advocate & Liaison (PAL) 08/08/19 04/26/21 Lashae Trevino, [facility] [address] [place] [address] [place] [id number] Pharmacist Pharmacist 10/14/19 12/01/20 Eduardo Sharma MD [address] [place] [address] [place] [address] Assigned Sleep Provider 04/02/2005/07 [place] [address] [facility] 300 [place] [address] Assigned Musculoskeletal Provider 04/02/20 08/24/20 Marcelo Artis PA-C [address] [facility] 300 [place] [address] Assigned Musculoskeletal Provider 08/25/20 08/20/21 Rodrigo Man PA-C [address] [place] [address] [place] [address] Assigned Surgical Provider 08/25/20 11/27/20 Noreen Flores APRN ALTERNATIVE DISPUTE RESOLUTION MEDIATOR 3305 [facility] [place] [address] Assigned PCP 08/05/22 03/16/23 Agatha Null DPM, Podiatry/Foot and Ankle Surgery [address] [place] [address] Assigned Musculoskeletal Provider 11/04/22 Clinic - [facility] 3309 [facility] [place] [address] Assigned PCP 07/05/23 12/31/23 documented as of this encounter
--- OUTSIDE RECORDS SUMMARY | 2024-03-27 13:17 | XMS_ITS | Encounter Summary ---
Author Organization [place] Address [address] [place] [address] Care Team Providers Care Distributor Operator Name Role Phone Selma Good APRN [employer] Primary Care Pro vider Vanda Guerrero MD Primary Care Provider [phone] Vanda Guerrero MD Unavailable [phone] Jeana-JdNoreen castro APRN, CNP Unavailable Jeana-JdNoreen castro APRN, CNP Unavailable JeanaNoreen Garcia APRN, CNP Primary Car e Provider Kalyan Galvan Unavailable Unavailable Lashae Trevino [facility] Unavailable [phone] Eduardo Sharma MD Unavailable Rios Monteiro MD Unavailable [phone] Marcelo Artis PA-C Unavailable [phone] Rodrigo ManC Unavailable [phone] Jeana-Noreen Miels APRN [employer] Unavailable Sudha Greene NP Primary Care Provider [phone] Agatha NullM, Podiatry /Foot and Ankle Surgery Unavailable [facility] Unavailable Reason for Visit * Reason Onset Date Comments Patient Request 01/26/2010 Encounter Details Date Type Department Care Team (Late st Contact Info) Description 01/26/2010 [facility] [address] [place] [address] [place] [phone] Selma Good APRN [employer]ARM[employer]CH[employer]ER 3305 [facility] [place] [address] Patient Request Social History Tobacco Use Types [...] as of this encounter Care Teams Distributor Operator Relationship Specialty Start Date End Date Selma Good, TRAINING PERSONNEL SUPERVISOR [employer] [address] [place] [address] [place] [address] PCP - General 04/09/08 04/07/15 Vanda Guerrero MD [address] [place] [address] [place] [address] PCP - General Internal Medicine 04/08/15 01/08/19 Vanda Guerrero MD [address] [place] [address] [place] [address] PCP - Assigned PCP 07/24/16 06/15/18 Noreen Flores APRN [employer] [address] [place] [address] [place] [address] PCP - Assigned PCP 06/16/18 08/13/18 Noreen Flores APRN [employer] [address] [place] [address] [place] [address] PCP - General Nurse Practitioner 01/09/19 12/12/21 Sudha Greene NP [address] [address] PCP - General 11/01/22 Noreen Flores APRN [employer] [address] [place] [address] [place] [address] Assigned PCP 06/16/18 05/26/22 Kalyan Galvan Personal Advocate & Liaison (PAL) 08/08/19 04/26/21 Lashae Trevino, [facility] 1440 [facility] [place] [address] Pharmacist Pharmacist 10/14/19 12/01/20 Eduardo Sharma MD [address] [facility] 103 [place] [address] Assigned Sleep Provider 04/02/2005/07 [place] [address] [facility] 300 [place] [address] Assigned Musculoskeletal Provider 04/02/20 08/24/20 Marcelo Artis, PA-C [address] [facility] 300 [place] [address] Assigned Musculoskeletal Provider 08/25/20 08/20/21 Rodrigo Man PA-C [address] [facility] [address] [place] [address] Assigned Surgical Provider 08/25/20 11/27/20 Noreen Flores APRN [employer] 3305 [facility] [place] [address] Assigned PCP 08/05/22 03/16/23 Agatha Null, DPM, Podiatry/Foot and Ankle Surgery [address] [facility] 300 [place] [address] Assigned Musculoskeletal Provider 11/04/22 [facility] 3305 [facility] [place] [id number] Assigned PCP 07/05/23 12/31/23 documented as of this encounter
--- OUTSIDE RECORDS SUMMARY | 2024-03-27 13:17 | XMS_ITS | Encounter Summary ---
Author Organization [place] Address [address] [place] [address] Care Team Providers Care Regional Commercial Sales Manager Name Role Phone Selma Good APRN OPTIC FIBRE DRAWER Primary Care Pro vider Vanda Guerrero MD Primary Care Provider [phone] Vanda Guerrero MD Unavailable [phone] Jeana-JdNoreen castro APRN, CNP Unavailable Jeana-JdNoreen castro APRN, CNP Unavailable JeanaNoreen Garcia APRN OPTIC FIBRE DRAWER Primary Car e Provider Kalyan Galvan Unavailable Unavailable Lashae Trevino [facility] Unavailable [phone] Eduardo Sharma MD Unavailable Rios Monteiro MD Unavailable [phone] Marcelo Artis PA-C Unavailable [phone] Rodrigo Man PA-C Unavailable [phone] Jeana-Noreen Miles APRN OPTIC FIBRE DRAWER Unavailable Sudha Greene NP Primary Care Provider Agatha NullM, Podiatry /Foot and Ankle Surgery Unavailable [facility] [place] [...] as of this encounter Care Teams Regional Commercial Sales Manager Relationship Specialty Start Date End Date Selma Good APRN OPTIC FIBRE DRAWER [address] [place] [address] [place] [address] PCP - General 04/09/08 04/07/15 Vanda Guerrero MD [address] [place] [address] [place] [address] PCP - General Internal Medicine 04/08/15 01/08/19 Vanda Guerrero MD [address] [place] [address] [place] [address] PCP - Assigned PCP 07/24/16 06/15/18 Noreen Flores APRN OPTIC FIBRE DRAWER [address] [place] [address] [place] [address] PCP - Assigned PCP 06/16/18 08/13/18 Noreen Flores APRN OPTIC FIBRE DRAWER [address] [place] [address] [place] [address] PCP - General Nurse Practitioner 01/09/19 12/12/21 Sudha Greene NP [address] [address] PCP - General 11/01/22 Noreen Flores APRN OPTIC FIBRE DRAWER [address] [place] [address] [place] [address] Assigned PCP 06/16/18 05/26/22 Kalyan Galvan Personal Advocate & Liaison (PAL) 08/08/19 04/26/21 Lashae Trevino, [facility] [address] [employer] [place] [address] Pharmacist Pharmacist 10/14/19 12/01/20 Eduardo Sharma MD [address] [place] [id number] Assigned Sleep Provider 04/02/2005/07 [place] [address] [facility] [address] [place] [address] Assigned Musculoskeletal Provider 04/02/20 08/24/20 Marcelo Artis PA-C [address] [place] [address] [place] [address] Assigned Musculoskeletal Provider 08/25/20 08/20/21 Rodrigo Man PA-C [address] [place] [address] Assigned Surgical Provider 08/25/20 11/27/20 Noreen Flores APRN OPTIC FIBRE DRAWER 3305 [facility] [place] [address] Assigned PCP 08/05/22 03/16/23 Agatha Null DPM, Podiatry/Foot and Ankle Surgery [address] [place] [address] Assigned Musculoskeletal Provider 11/04/22 [facility] 3305 [facility] DAV[place] [id number] Assigned PCP 07/05/23 12/31/23 documented as of this encounter
--- OUTSIDE RECORDS SUMMARY | 2024-03-27 13:17 | XMS_ITS | Encounter Summary ---
Author Organization [place] Address [address] [place] [address] Care Team Providers Care Statistical Programmer Analyst Name Role Phone Selma Good APRN TOOLSMITH Primary Care Pro vider Vanda Guerrero MD Primary Care Provider [phone] Vanda Guerrero MD Unavailable [phone] Jeana-JdNoreen castro APRN, CNP Unavailable Jeana-JdNoreen castro APRN, CNP Unavailable JeanaNoreen Garcia APRN TOOLSMITH Primary Car e Provider Kalyan Galvan Unavailable Unavailable Lashae Trevino [facility] Unavailable [phone] Eduardo Sharma MD Unavailable Rios Monteiro MD Unavailable [phone] Marcelo Artis PA-C Unavailable [phone] Rodrigo Man PA-C Unavailable [phone] Jeana-Noreen Miles APRN TOOLSMITH Unavailable Sudha Greene NP Primary Care Provider Agatha NullM, Podiatry /Foot and Ankle Surgery Unavailable [facility] Unavailable Encounter Details Date Type Department Care Team (Late st Contact Info) Description 07/21/2010 [facility] [place] [phone] Selma Good APRN TOOLSMITH 3305 [facility] DAV[place] [address] Social History Tobacco Use Types Packs/Day Years [...] as of this encounter Care Teams Statistical Programmer Analyst Relationship Specialty Start Date End Date Selma Good APRN TOOLSMITH [address] [place] [address] [place] [address] PCP - General 04/09/08 04/07/15 Vanda Guerrero MD [address] [place] [address] [place] [address] PCP - General Internal Medicine 04/08/15 01/08/19 Vanda Guerrero MD [address] [place] [address] [place] [address] PCP - Assigned PCP 07/24/16 06/15/18 Noreen Flores APRN TOOLSMITH [address] [place] [address] [place] [address] PCP - Assigned PCP 06/16/18 08/13/18 Noreen Flores APRN TOOLSMITH [address] [place] [address] [place] [address] PCP - General Nurse Practitioner 01/09/19 12/12/21 Sudha Greene, [place] [address] [address] PCP - General 11/01/22 Noreen Flores APRN TOOLSMITH [address] [place] [address] [place] [address] Assigned PCP 06/16/18 05/26/22 Kalyan Galvan Personal Advocate & Liaison (PAL) 08/08/19 04/26/21 [facility] DAV[place] [phone] Pharmacist Pharmacist 10/14/19 12/01/20 Eduardo Sharma MD 6363 [facility] 103 [place] [address] Assigned Sleep Provider 04/02/2005/07 [place] [address] [place] [address] [place] [address] Assigned Musculoskeletal Provider 04/02/20 08/24/20 Marcelo Artis PA-C [address] [place] [address] [place] [address] Assigned Musculoskeletal Provider 08/25/20 08/20/21 Rodrigo Man PA-C [address] [place] [address] Assigned Surgical Provider 08/25/20 11/27/20 Noreen Flores APRN TOOLSMITH 0845 [facility] [place] [address] Assigned PCP 08/05/22 03/16/23 Agatha Null DPM, Podiatry/Foot and Ankle Surgery [address] [place] [address] [place] [address] Assigned Musculoskeletal Provider 11/04/22 Clinic - [facility] 3305 [facility] DAVID ORDOÑEZ [id number] Assigned PCP 07/05/23 12/31/23 documented as of this encounter
--- OUTSIDE RECORDS SUMMARY | 2024-03-27 13:17 | XMS_ITS | Encounter Summary ---
Author Organization [facility] Address [address] [place] [address] Care Team Providers Care Intensivist Name Role Phone Selma Good APRN ART CONSERVATOR Primary Care Pro vider Vanda Guerrero MD Primary Care Provider [phone] Vanda Guerrero MD Unavailable [phone] Jeana-JdNoreen castro APRN, CNP Unavailable Jeana-JdNoreen castro APRN, CNP Unavailable JeanaNoreen Garcia APRN, CNP Primary Car e Provider Kalyan Galvan Unavailable Unavailable Lashae Trevino [facility] Unavailable [phone] Eduardo Sharma MD Unavailable Rios Monteiro MD Unavailable [phone] Marcelo Artis PA-C Unavailable [phone] Rodrigo ManC Unavailable [phone] Jeana-Noreen Miles APRN ART CONSERVATOR Unavailable Sudha Greene NP Primary Care Provider Agatha NullM, Podiatry /Foot and Ankle Surgery Unavailable [facility] Unavailable Reason for Visit * Reason Onset Date Comments Patient Request 07/01/2009 Encounter Details Date Type Department Care Team (Late st Contact Info) Description 07/01/[address] [facility] [address] [place] [address] [place] [phone] Selma Good APRN ART CONSERVATOR [address] [place] [address] [place] [address] Patient Request Social History Tobacco Use Types [...] documented as of this encounter Care Teams Intensivist Relationship Specialty Start Date End Date Selma Good APRN ART CONSERVATOR [address] [place] [address] [place] [address] PCP - General 04/09/08 04/07/15 Vanda Guerrero MD [address] [place] [address] [place] [address] PCP - General Internal Medicine 04/08/15 01/08/19 Vanda Guerrero MD [address] [place] [address] [place] [address] PCP - Assigned PCP 07/24/16 06/15/18 Noreen Flores APRN ART CONSERVATOR [address] [facility] [place] [address] PCP - Assigned PCP 06/16/18 08/13/18 Noreen Flores APRN ART CONSERVATOR [address] [place] [address] [place] [address] PCP - General Nurse Practitioner 01/09/19 12/12/21 Sudha Greene, MAURICIO [address] [address] PCP - General 11/01/22 Noreen Flores APRN ART CONSERVATOR [address] [place] [address] [place] [address] Assigned PCP 06/16/18 05/26/22 Kalyan Galvan Personal Advocate & Liaison (PAL) 08/08/19 04/26/21 Lashae Trevino, [facility] [address] [place] [address] [place] [phone] Pharmacist Pharmacist 10/14/19 12/01/20 Eduardo Sharma MD [address] [place] [id number] Assigned Sleep Provider 04/02/2005/07 [place] [address] [facility] [address] [place], [place] [id number] Assigned Musculoskeletal Provider 04/02/20 08/24/20 Marcelo Artis PA-C [address] [facility] [address] [place], [place] [id number] Assigned Musculoskeletal Provider 08/25/20 08/20/21 Rodrigo Man PA-C [address] [place] [address] Assigned Surgical Provider 08/25/20 11/27/20 Noreen Flores APRN ART CONSERVATOR [address] [facility] [place] [address] Assigned PCP 08/05/22 03/16/23 Agatha Null DPM, Podiatry/Foot and Ankle Surgery [address] [place] [address] Assigned Musculoskeletal Provider 11/04/22 Clinic - Nita Pringle [facility] [address] [facility] DAVID ORDOÑEZ [id number] Assigned PCP 07/05/23 12/31/23 documented as of this encounter
--- OUTSIDE RECORDS SUMMARY | 2024-03-27 13:17 | XMS_ITS | Clinical Summary ---
Author Organization [facility] Address [address] [place] [address] Care Team Providers Care Pipeline Superintendent Name Role Phone Unassigned, Provider Primary Care Provider Unava ilable Source Comments You are receiving this document as you are listed as the primary care provider,follow-up provider, or the patient has been referred to you for consultation.This is in compliance with the Medicare and[facility] EHR Incentive Program,which states Providers who transition their patient to another setting of careor provider of care or refers their patient to another provider of care shouldprovide summary care record for each transition of care or referral. 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/31/2017): PLANTAR NERVE LESION Cervicalgia 06/20/2004 Overview (06/20/2004): 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 fusion...2000 Contact dermatitis and eczema 04/21/2004 Overview (01/31/2017): Contact dermatitis and other eczema, due to unspecified cause Immunizations Name Administration Dates Next Due Flu Vac (3+ yrs) 03/09/2011,04/08/2010, 8 Influenza IIV4 (Quadrivalent ) 0.5mL (32432) 06/12/2017,03/23/2016,04/08/2015, 013 PPSV23 (Pneumovax) 10/06/2014 Pfizer Monovalent 12+ Purple Top 09/24/2020,0311/2020 Td (7+ yrs) 06/16/2005 Tdap 03/23/2016 Family [...] Comments Blood Pressure 120/62 05/25/2021 11:09 AM JUNIOR MEDIA BUYER Pulse 59 05/25/2021 11:09 AM JUNIOR MEDIA BUYER Temperature 36.7 ??C (98.1 ??F) 05/25/2021 1 1:09 AM JUNIOR MEDIA BUYER Respiratory Rate 16 08/23/2007 1:13 PM CDT Oxygen Saturation 97% 08/23/2007 1:13 PM CDT Inhaled Oxygen Concentration - - Weight 78.8 kg (173 lb 12.8 oz) 021 11:09 AM JUNIOR MEDIA BUYER Height 160 cm (5' 3) 08/23/2007 1:13 [...] of 2) 2013 COVID-19 Vaccine ( season) 2024 09/24/2020, 09/03/2020 Influenza (#1) 2024 06/12/2017, 03/11, 04/08/2015, Additional history exists DTaP/Tdap/Td (2 - Tdap) 03/23/2026 03/23/2016, 06/16 RSV (1 - 1-dose 75+ series) 2038 Pneumococcal Aged Out 10/06/2014 No longer eligi [...] patient's age to complete this topic RSV Aged Out No longer eligi ble based on patient's age to complete this topic MCV4 Aged Out No longer eligi ble based on patient's age to complete this topic Medical Devices Implanted Type Area Weight Recorder Device Identifier Shelf Expiration Date Model / Serial / Lot Kit Infuse Bone Graft Sm - [id number] Implanted:Qty : 1 on 04/15/2007 at [facility] BIOLOGIC Left: BACK [employer] [id number] / / [id number] Bone Canc Crushed 60cc - [id number] Implanted:Qty : 1 on 04/15/2007 at [facility] Left: BACK Henna 16533 / OTS [id number] / Device Cage Ray Thrd 12x26 - [id number] Implanted:Qty : 2 on 04/15/2007 at [facility] DEVICE Left: BACK [place] 7-1226 / / [id number] Cage Ray 67n35zi - [id number] Implanted:Qty : 1 on 04/15/2007 at [facility] Left: BACK [place] 05/11/2008 7-7056 / / [id number] Procedures Procedure Name Priority Date/Time Associated Diagnosis [...] 8:33 AM CDT) Cholesterol 188 <200 mg/dl [facility] Triglyceride 95 <200 mg/dl [facility] HDL 46 >35 mg/dl [facility] LDL, Calc. 123 mg/dl [facility] Hours Fasting 12 hours [facility] 10/07/2005 8:33 AM CDT 10/07/2005 8:34 AM CDT Yun Flynn MD LAB_1 Performing Organization Address City/State/[facility] Co de Phone Number [facility] [address] [place] [phone] * PAP TEST, ROUTINE (10/02/2005 12:00 AM CDT) Cytology, Pap (NOTE) Occupational Health Manager Cytology Report Patient Name: PADMINI CHOI Taken: [...] and less commonly, endometrial/uterin e abnormalities. ? zmka/10/13/2005 Electronically Signed Out By ? Kelly Elmore MD ([id number]) Rakel Valle, ??CT (ASCP) ?Pap Smear History ?Date of Last Menstrual Period: ? 09/22/05 ?Contraceptive History: ?Not Stated/Unknown ?Other Clinical Conditions: ?LAST PAP: N/A HPV reflex testing requested with interpretation of ASCUS ? [facility] 10/02/2005 10/06/2005 9:5 8 AM CDT Yun Flynn MD LAB_1 [place], [place] [phone] * MAMMOGRAM, SCREENING (05/15/2003) Anatomical Region Laterality Modality Breast Other Narrative Transcriptions Dusty Gonsalves - 05/15/2003 12:00 AM CSTCLINICAL DATA: Screening. EXAMINATION: Bilateral mammogram, 05/15/03. ACR BIRADS CATEGORY 1 - NEGATIVE MAMMOGRAM. FINDINGS: Nothing for malignancy. Dusty Gonsalves MD 10:42 A cc: AUDREY Moffett Radiology SP Blank Perez GENETICS PHYSICIAN, INSPECTOR PURCHASED PARTS RAD_BI from Last 3 Months or Most Recently Relevant to Health Maintenance Advance Directives * Full Code (Latest Code Status on File) Date Activated Date Inactivated Comments 04/15/2007 8:03 AM 04/19/2007 8:53 PM Care Teams Pipeline Superintendent Relationship Specialty Start Date End Date Unassigned, Provider [address] [place] [address] PCP - General 09/18/08
--- OUTSIDE RECORDS SUMMARY | 2024-03-27 13:17 | XMS_ITS | Encounter Summary ---
Author Organization [facility] Address [address] [place] [address] Care Team Providers Care Binder Chainstitch Name Role Phone Selma Good APRN AWAKE OVERNIGHT MONITOR Primary Care Pro vider Vanda Guerrero MD Primary Care Provider [phone] Vanda Guerrero MD Unavailable [phone] Jeana-JdNoreen castro APRN, CNP Unavailable Jeana-JdNoreen castro APRN, CNP Unavailable JeanaNoreen Garcia APRN AWAKE OVERNIGHT MONITOR Primary Car e Provider Kalyan Galvan Unavailable Unavailable Lashae Trevino [facility] Unavailable [phone] Eduardo Sharma MD Unavailable Rios Monteiro MD Unavailable [phone] Marcelo Artis PA-C Unavailable [phone] Rodrigo Man PA-C Unavailable [phone] Jeana-Noreen Miles APRN AWAKE OVERNIGHT MONITOR Unavailable Sudha Greene NP Primary Care Provider Agatha NullM, Podiatry /Foot and Ankle Surgery Unavailable [facility] Unavailable Encounter Details Date Type Department Care Team (Late st Contact Info) Description 12/14/2009 [facility] [place] [phone] Aljeo Casas Social History Tobacco Use Types Packs/Day [...] as of this encounter Care Teams Binder Chainstitch Relationship Specialty Start Date End Date Selma Good APRN AWAKE OVERNIGHT MONITOR [address] [facility] [place] [address] PCP - General 04/09/08 04/07/15 Vanda Guerrero MD [facility] [place] [address] PCP - General Internal Medicine 04/08/15 01/08/19 Vanda Guerrero MD [address] [place] [address] [place] [address] PCP - Assigned PCP 07/24/16 06/15/18 Noreen Flores APRN AWAKE OVERNIGHT MONITOR [facility] [place] [address] PCP - Assigned PCP 06/16/18 08/13/18 Noreen Flores APRN AWAKE OVERNIGHT MONITOR [address] [place] [address] [place] [address] PCP - General Nurse Practitioner 01/09/19 12/12/21 Sudha Greene NP [address] [address] PCP - General 11/01/22 Noreen Flores APRN AWAKE OVERNIGHT MONITOR [address] [place] [address] [place] [address] Assigned PCP 06/16/18 05/26/22 Kalyan Galvan Personal Advocate & Liaison (PAL) 08/08/19 04/26/21 [facility] [address] [place] [address] [place] [address] Pharmacist Pharmacist 10/14/19 12/01/20 Eduardo Sharma MD [address] [place] [address] Assigned Sleep Provider 04/02/2005/07 [place] [address] [facility] [address] [place] [address] Assigned Musculoskeletal Provider 04/02/20 08/24/20 Marcelo Artis PA-C [address] [facility] [address] [place] [address] Assigned Musculoskeletal Provider 08/25/20 08/20/21 Rodrigo Man PA-C [address] [place] [address] Assigned Surgical Provider 08/25/20 11/27/20 Noreen Flores APRN AWAKE OVERNIGHT MONITOR [address] [facility] [place] [address] Assigned PCP 08/05/22 03/16/23 Agatha Null DPM, Podiatry/Foot and Ankle Surgery [address] [place] [address] Assigned Musculoskeletal Provider 11/04/22 Clinic - Nita Pringle [facility] [address] [facility] [place] [address] Assigned PCP 07/05/23 12/31/23 documented as of this encounter
--- OUTSIDE RECORDS SUMMARY | 2024-03-27 13:17 | XMS_ITS | Encounter Summary ---
Author Organization [facility] Address [address] [place] [address] Care Team Providers Care Harvest Worker Name Role Phone Selma Good APRN PUBLISHING SPECIALIST Primary Care Pro vider Vanda Guerrero MD Primary Care Provider [phone] Vanda Guerrero MD Unavailable [phone] Jeana-JdNoreen castro APRN, CNP Unavailable Jeana-JdNoreen castro APRN, CNP Unavailable JeanaNoreen Garcia APRN PUBLISHING SPECIALIST Primary Car e Provider Kalyan Galvan Unavailable Unavailable Lashae Trevino [facility] Unavailable [phone] Eduardo Sharma MD Unavailable Rios Monteiro MD Unavailable [phone] Marcelo Artis PA-C Unavailable [phone] Rodrigo Man PA-C Unavailable [phone] Jeana-Noreen Miles APRN PUBLISHING SPECIALIST Unavailable Sudha Greene NP Primary Care Provider Agatha NullM, Podiatry /Foot and Ankle Surgery Unavailable [facility] Unavailable Encounter Details [...] as of this encounter Care Teams Harvest Worker Relationship Specialty Start Date End Date Selma Good APRN PUBLISHING SPECIALIST [address] [place] [address] [place] [address] PCP - General 04/09/08 04/07/15 Vanda Guerrero MD [address] [place] [address] [place] [address] PCP - General Internal Medicine 04/08/15 01/08/19 Vanda Guerrero MD [address] [place] [address] [place] [address] PCP - Assigned PCP 07/24/16 06/15/18 Noreen Flores APRN PUBLISHING SPECIALIST [address] [place] [address] [place] [address] PCP - Assigned PCP 06/16/18 08/13/18 Noreen Flores APRN PUBLISHING SPECIALIST [address] [facility] [place] [address] PCP - General Nurse Practitioner 01/09/19 12/12/21 Sudha Greene, MAURICIO [address] [address] PCP - General 11/01/22 Noreen Flores APRN PUBLISHING SPECIALIST [address] [place] [address] [place] [address] Assigned PCP 06/16/18 05/26/22 Kalyan Galvan Personal Advocate & Liaison (PAL) 08/08/19 04/26/21 Lashae Trevino, [facility] [address] [place] [address] [place] [address] Pharmacist Pharmacist 10/14/19 12/01/20 Eduardo Sharma MD [address] [place] [id number] Assigned Sleep Provider 04/02/2005/07 [place] [address] [facility] [address] [place] [address] Assigned Musculoskeletal Provider 04/02/20 08/24/20 Marcelo Artis PA-C [address] [facility] [address] [place], [place] 673467 Assigned Musculoskeletal Provider 08/25/20 08/20/21 Rodrigo Man PA-C [address] [place] [address] Assigned Surgical Provider 08/25/20 11/27/20 Noreen Flores APRN PUBLISHING SPECIALIST [address] [facility] [place] [address] Assigned PCP 08/05/22 03/16/23 Agatha Null DPM, Podiatry/Foot and Ankle Surgery [address] [place] [address] Assigned Musculoskeletal Provider 11/04/22 [facility] Pringle [facility] [address] [facility] [place] [id number] Assigned PCP 07/05/23 12/31/23 documented as of this encounter
--- OUTSIDE RECORDS SUMMARY | 2024-03-27 13:17 | XMS_ITS | Encounter Summary ---
Author Organization [facility] Address [address], [place] [address] Care Team Providers Care Live Out Nanny Name Role Phone Unassigned, Provider Primary Care Provider Unava ilable Encounter Details Date Type Department Care Team (Latest Contact Info) Description 07/26/2004 [facility] Gavin Justice MD [address] [place] [address] Social History Tobacco Use Types Packs/Day Years [...] * Jerome Garg - 07/26/2004 12:00 AM RIM BUSTER DATE OF SURGERY: 07/26/2004 STAFF SURGEON: Gavin [...] nerve impingement. Therefore, she is referred to [facility] pain clinic for evaluation for [...] Justice MD Transcribed: 07/26/2004 14:26:15 Doc #: [id number] cc: Jose Colin, , Primary/Referring DO NOT SIGN UNLESS PRESENT FOR PROCEDURE I attest that I was present for and participated in the ma portions of this procedure(s) in compliance with the Health Care Financing Administration Teaching Physician Guidelines. Signed Date Regions Staff Physician 1 Page 2 Patient Name: PADMINI CHOI Visit Date: 07/26/2004 OUTPATIENT OPERATIVE REPORT CONFIDENTIAL MEDICAL RECORD [facility] [address] [place] [address] Page 1 Patient: PADMINI CHOI [id number] Date of : 1965 Visit Date: 07/26/2004 OUTPATIENT OPERATIVE REPORT documented in this encounter Plan of Treatment Not on file documented as of this encounter Visit Diagnoses Not on filedocumented in this encounter Care Teams Live Out Nanny Relationship Specialty Start Date End Date Unassigned, Provider [address] [place] [address] PCP - General 09/18/08 documented as of this encounter
--- OUTSIDE RECORDS SUMMARY | 2024-03-27 13:17 | XMS_ITS | Encounter Summary ---
Author Organization [facility] Address [address] [place] [address] Care Team Providers Care Continuous Mining Machine Operator Name Role Phone Unassigned, Provider Primary Care Provider Unava ilable Encounter Details Date Type Department Care Team (Late st Contact Info) Description 08/23/2004 [facility] [address] [place] [address] Gavin Justice MD [address] [place] [address] Social History Tobacco Use Types Packs/Day Years [...] * Jerome Garg - 08/23/2004 12:00 AM FURNACE ERECTOR DATE OF SURGERY: August 23, 2004. STAFF [...] Justice MD Transcribed: 08/24/2004 07:37:56 Doc #: [id number] cc: Joes Colin, DO, Referring DO NOT SIGN UNLESS PRESENT FOR PROCEDURE I attest that I was present for and participated in the ma portions of this procedure(s) in compliance with the Health Care Financing Administration Teaching Physician Guidelines. Signed Date Regions Staff Physician 1 Page 2 Patient Name: PADMINI CHOI Visit Date: 08/23/2004 OUTPATIENT OPERATIVE REPORT CONFIDENTIAL MEDICAL RECORD [address] [phone] Page 1 Patient: PADMINI CHOI Location: PAIN HPN: [id number] Date of : 1965 Visit Date: 08/23/2004 OUTPATIENT OPERATIVE REPORT documented in this encounter Plan of Treatment Not on file documented as of this encounter Visit Diagnoses Not on filedocumented in this encounter Care Teams Continuous Mining Machine Operator Relationship Specialty Start Date End Date Unassigned, Provider [address] [place] [address] PCP - General 09/18/08 documented as of this encounter
--- OUTSIDE RECORDS SUMMARY | 2024-03-27 13:17 | XMS_ITS | Encounter Summary ---
Author Organization [facility] Address [address] [place] [address] Care Team Providers Care Roller Checker Name Role Phone Selma Good APRN AIRPLANE DISPATCH CLERK Primary Care Pro vider Vanda Guerrero MD Primary Care Provider [phone] Vanda Guerrero MD Unavailable [phone] Jeana-JdNoreen castro APRN, CNP Unavailable [facility]-JdNoreen castro APRN, CNP Unavailable JeanaRejiJdNoreen castro APRN, CNP Primary Car e Provider Kalyan Galvan Unavailable Unavailable Lashae Trevino [facility] Unavailable [phone] Eduardo Sharma MD Unavailable Rios Monteiro MD Unavailable [phone] Marcelo Artis-Aleyda Unavailable [phone] Rodrigo ManC Unavailable [phone] Jeana-Noreen Miles APRN AIRPLANE DISPATCH CLERK Unavailable Sudha Greene NP Primary Care Provider Agatha NullM, Podiatry /Foot and Ankle Surgery Unavailable [facility] Unavailable Reason for Referral * Referral not Required - Closed Specialty Diagnoses / Procedures Referred By Rylie t Referred To Contact Diagnoses Migraine headaches Selma Good APRN AIRPLANE DISPATCH CLERK [address] [facility] [place] [address] [facility] [address] [place] [address] Referral ID Status Reason Start Date Expiration Date Visits Re quested Visits Authorized [id number] Closed 09/18/2008 06/10/2011 1 1 Comments Coverage of these services is subject to the terms and limitations of your health insurance plan. Please call member services at your health plan with any benefit or coverage questions. [facility] referral to [facility] at [phone]. . Any CT, MRI or procedures ordered by your specialist must be performed at a [facility] facility OR coordinated by your clinic's referral office at [phone]. If X-rays, CTs or MRIs have been performed, please contact the facility where they were done, to arrange for pick and shovel man prior to your scheduled appointment. Please bring this referral request to your appointment and present it to your specialist. Reason for Visit * Reason Onset Date Comments Medication Request 09/17/2008 migraine med Encounter Details Date Type Department Care Team (Late st Contact Info) Description 09/17/2008 [facility] Medical Advice [facility] [address] [facility] [place] [phone] Selma Good APRN AIRPLANE DISPATCH CLERK [address] [facility] [place] [address] Medication Request (migraine med) Social History Tobacco [...] sent to patient with phone number for [facility]. Ivette Allan M.A. * Telephone Encounter - Selma Good - 09/18/2008 8:18 AM CDT It appears in my note from when I saw her, I recommended referral to neuro, which she declined at that time. It appears imitrex 'knocked her out.' I would recommend [facility] neurology. documented in this encounter Plan of Treatment Not on file documented as of this encounter Procedures Procedure Name Priority Date/Time Associated Diagnosis Comments [facility]Z CONSULT NEUROLOGY Routine 11/15/2010 Migraine headaches documented in this encounter Results * CONSULT NEUROLOGY (11/15/2010) Selma Good MOLD INSERT CHANGER AIRPLANE DISPATCH CLERK REFERRAL documented in this encounter Visit Diagnoses Diagnosis Migraine headaches- Primary Migraine, unspecified, without mention of intractable migraine without mention of status migrainosus documented in this encounter Additional Health Concerns Infection Onset Date Last Indicated Resolved Time Rule Out COVID-19 08/25/2020 08/25/2020 08/26/2020 3:23 PM CDT Rule Out COVID-19 11/26/2022 11/26/2022 11/27/2022 3:38 PM CDT documented as of this encounter Care Teams Roller Checker Relationship Specialty Start Date End Date Selma Good MOLD INSERT CHANGER AIRPLANE DISPATCH CLERK [address] [facility] [place] [address] PCP - General 04/09/08 04/07/15 Vanda Guerrero MD [address] [facility] [place] [address] PCP - General Internal Medicine 04/08/15 01/08/19 Vanda Guerrero MD [address] [place] [address] [place] [address] PCP - Assigned PCP 07/24/16 06/15/18 Noreen Flores APRN AIRPLANE DISPATCH CLERK [address] [place] [address] [place] [address] PCP - Assigned PCP 06/16/18 08/13/18 Noreen Flores APRN AIRPLANE DISPATCH CLERK [address] [place] [address] [place] [address] PCP - General Nurse Practitioner 01/09/19 12/12/21 Sudha Greene, MAURICIO [address] [address] PCP - General 11/01/22 Noreen Flores APRN AIRPLANE DISPATCH CLERK [address] [place] [address] [place] [address] Assigned PCP 06/16/18 05/26/22 Kalyan Galvan Personal Advocate & Liaison (PAL) 08/08/19 04/26/21 [facility] [place] [address] Pharmacist Pharmacist 10/14/19 12/01/20 Eduardo Sharma MD [address] [place] [address] [place] [address] Assigned Sleep Provider 04/02/2005/07 [place] [address] [address] Assigned Musculoskeletal Provider 04/02/20 08/24/20 Marcelo Artis PA-C [address] [place] [address] [place] [address] Assigned Musculoskeletal Provider 08/25/20 08/20/21 Rodrigo Man PA-C [address] [facility] [address] [place] [address] Assigned Surgical Provider 08/25/20 11/27/20 Noreen Flores APRN CNP [address] [place] [address] [place] [address] Assigned PCP 08/05/22 03/16/23 Agatha Null DPM, Podiatry/Foot and Ankle Surgery [address] [facility] [address] [place] [address] Assigned Musculoskeletal Provider 11/04/22 [facility] [place] [facility] [address] [facility] [place] [id number] Assigned PCP 07/05/23 12/31/23 documented as of this encounter
--- OUTSIDE RECORDS SUMMARY | 2024-03-27 13:17 | XMS_ITS | Encounter Summary ---
Author Organization [facility] Address [address] [place] [address] Care Team Providers Care Crt Name Role Phone Selma Good APRN DINKEY PRESS OPERATOR Primary Care Pro vider Vanda Guerrero MD Primary Care Provider [phone] Vanda Guerrero MD Unavailable [phone] Jeana-JdNoreen castro APRN, CNP Unavailable Jeana-JdNoreen castro APRN, CNP Unavailable JeanaNoreen Garcia APRN DINKEY PRESS OPERATOR Primary Car e Provider Kalyan Galvan Unavailable Unavailable Lashae Trevino [facility] Unavailable [phone] Eduardo Sharma MD Unavailable Rios Monteiro MD Unavailable [phone] Marcelo Artis PA-C Unavailable [phone] Rodrigo Man PA-C Unavailable [phone] Jeana-Noreen Miles APRN DINKEY PRESS OPERATOR Unavailable Sudha Greene NP Primary Care Provider Agatha NullM, Podiatry /Foot and Ankle Surgery Unavailable [facility] Unavailable Encounter Details Date Type Department Care Team (Late st Contact Info) Description 01/11/2010 [facility] [address] [place] [address] [place] [phone] Alejo Casas Social History [...] documented as of this encounter Care Teams Crt Relationship Specialty Start Date End Date Selma Good APRN DINKEY PRESS OPERATOR [address] [facility] [place] [address] PCP - General 04/09/08 04/07/15 Vanda Guerrero MD [facility] [place] [address] PCP - General Internal Medicine 04/08/15 01/08/19 Vanda Guerrero MD [address] [place] [address] [place] [address] PCP - Assigned PCP 07/24/16 06/15/18 Noreen Flores APRN DINKEY PRESS OPERATOR [facility] [place] [address] PCP - Assigned PCP 06/16/18 08/13/18 Noreen Flores APRN DINKEY PRESS OPERATOR [address] [place] [address] [place] [address] PCP - General Nurse Practitioner 01/09/19 12/12/21 Sudha Greene NP [address] [address] PCP - General 11/01/22 Noreen Flores APRN DINKEY PRESS OPERATOR [address] [place] [address] [place] [address] Assigned PCP 06/16/18 05/26/22 Kalyan Galvan Personal Advocate & Liaison (PAL) 08/08/19 04/26/21 [facility] [address] [place] [address] [place] [address] Pharmacist Pharmacist 10/14/19 12/01/20 Eduardo Sharma MD [address] [place] [address] [place] [address] Assigned Sleep Provider 04/02/2005/07 [place] [address] [facility] [address] [place] [address] Assigned Musculoskeletal Provider 04/02/20 08/24/20 Marcelo Artis PA-C [address] [facility] [place] [address] [place] [address] Assigned Musculoskeletal Provider 08/25/20 08/20/21 Rodrigo Man PA-C [address] [place] [address] [place] [address] Assigned Surgical Provider 08/25/20 11/27/20 Noreen Flores APRN DINKEY PRESS OPERATOR [address] [facility] [place] [address] Assigned PCP 08/05/22 03/16/23 Agatha Null DPM, Podiatry/Foot and Ankle Surgery [address] [place] [address] [place] [id number] Assigned Musculoskeletal Provider 11/04/22 [facility] [place] [place] [facility] [address] [facility] [place] [address] Assigned PCP 07/05/23 12/31/23 documented as of this encounter
--- OUTSIDE RECORDS SUMMARY | 2024-03-27 13:17 | XMS_ITS | Encounter Summary ---
Author Organization [facility] Address [address] [place] [address] Care Team Providers Care Margarine Churn Operator Name Role Phone Selma Good APRN REGISTERED NURSE OBSTETRICS Primary Care Pro vider Vanda Guerrero MD Primary Care Provider [phone] Vanda Guerrero MD Unavailable [phone] Jeana-JdNoreen castro APRN, CNP Unavailable Jeana-JdNoreen castro APRN, CNP Unavailable JeanaNoreen Garcia APRN REGISTERED NURSE OBSTETRICS Primary Car e Provider Kalyan Galvan Unavailable Unavailable Lashae Trevino [facility] Unavailable [phone] Eduardo Sharma MD Unavailable Rios Monteiro MD Unavailable [phone] Marcelo Artis PA-C Unavailable [phone] Rodrigo Man PA-C Unavailable [phone] Jeana-Noreen Miles APRN REGISTERED NURSE OBSTETRICS Unavailable Sudha Greene NP Primary Care Provider [phone] Agatha NullM, Podiatry /Foot and Ankle Surgery Unavailable [facility] Unavailable Encounter Details Date Type Department Care Team (Late st Contact Info) Description 04/17/2010 [facility] [address] [place] [address] [place] [phone] Selma Good APRN REGISTERED NURSE OBSTETRICS [address] [place] [address] [place] [address] Social History Tobacco Use Types Packs/Day Years [...] respond to pt regarding her sodium intake. 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 documented in this encounter Plan of Treatment Not on file documented as of this encounter Visit Diagnoses Not on filedocumented in this encounter Additional Health Concerns Infection Onset Date Last Indicated Resolved Time Rule Out COVID-19 08/25/2020 08/25/2020 08/26/2020 3:23 PM CDT Rule Out COVID-19 11/26/2022 11/26/2022 11/27/2022 3:38 PM CDT documented as of this encounter Care Teams Margarine Churn Operator Relationship Specialty Start Date End Date Selma Good APRN REGISTERED NURSE OBSTETRICS [address] [place] [address] [place] [address] PCP - General 04/09/08 04/07/15 Vanda Guerrero MD [address] [place] [address] [place] [address] PCP - General Internal Medicine 04/08/15 01/08/19 Vanda Guerrero MD [address] [place] [address] [place] [address] PCP - Assigned PCP 07/24/16 06/15/18 Noreen Flores APRN REGISTERED NURSE OBSTETRICS [address] [place] [address] [place] [address] PCP - Assigned PCP 06/16/18 08/13/18 Noreen Flores APRN REGISTERED NURSE OBSTETRICS [address] [place] [address] [place] [address] PCP - General Nurse Practitioner 01/09/19 12/12/21 Sudha Greene, MAURICIO [address] [address] PCP - General 11/01/22 Noreen Flores APRN REGISTERED NURSE OBSTETRICS [address] [place] [address] [place] [address] Assigned PCP 06/16/18 05/26/22 Kalyan Galvan Personal Advocate & Liaison (PAL) 08/08/19 04/26/21 [facility] [address] [facility] [place] [address] Pharmacist Pharmacist 10/14/19 12/01/20 Eduardo Sharma MD [address] [facility] 103 [place] [address] Assigned Sleep Provider 04/02/2005/07 [place] [address] [facility] 300 [place], [place] [address] Assigned Musculoskeletal Provider 04/02/20 08/24/20 Marcelo Artis PA-C [address] [facility] [address] [place] [address] Assigned Musculoskeletal Provider 08/25/20 08/20/21 Rodrigo Man PA-C [address] [facility] 450 [place] [address] Assigned Surgical Provider 08/25/20 11/27/20 Noreen lFores APRN CNP [address] [place] [address] [place] [address] Assigned PCP 08/05/22 03/16/23 Agatha Null DPM, Podiatry/Foot and Ankle Surgery [address] [facility] [address] [place] [address] Assigned Musculoskeletal Provider 11/04/22 [facility] [address] [place] [address] [place] [address] Assigned PCP 07/05/23 12/31/23 documented as of this encounter
== END 2024-03-27 13:09 | disposition home or self-care (01) ==
PROVIDERS: PCP Nurse Practitioner Family; Visit Provider Nurse Practitioner Family
DX: Z01.818 Encounter for other preprocedural examination (principal)
CPT/HCPCS: 80053; 85025

== ENCOUNTER 2024-04-03 07:08 | Day surgery (SDC) | payer BC, SELFPAY ==
[2024-04-03] VITALS (18 sets, daily range): BP systolic 125–176; BP diastolic 58–83; PULSE 66–100; RESP 14–26; TEMP 36.5–37; O2SAT 90–100; BMI 36.1
--- OUTSIDE RECORDS SUMMARY | 2024-04-03 07:11 | XMS_ITS | Continuity of Care Document ---
Author Organization [facility] Address [address] [facility] [address] [place] [address] Phone Care Team Providers Care Leaf Binner Name Role Phone Renee SALDANA MD, Emeka Unavailable Unavailable Advance Directives Directive Yes / No Effective Date File Name No Information Encounters Encounter Description Practice Location Reason(s) For Visit Diagnoses Date Provider Providers Copied on Encounter [facility], [address], [place], [place], [id number], [place] tel:[phone] No Information 0 Renee Hendrickson. [address], [place], [address], [place]. tel:[phone] Referring Provider: Emeka Angeles, [address] [place], [address]. tel:[phone] Family History Family Member Type Diagnosis Age At Onset No Information Payers Payer name Insurance type Covered democrat ID Sharanabeba carolynnmarilyn(s) [facility] [id number] Social History Type Description Quantity Date Captured [...]
--- OUTSIDE RECORDS SUMMARY | 2024-04-03 07:11 | XMS_ITS | Clinical Summary ---
Author Organization [facility] Address [place], [place] [address] Care Team Providers Care Rotary Saw Operator Name Role Phone Sudha Greene NP Primary Care Provider [phone] Allergies Active Allergy Reactions Criticality Noted Date [...] CDT Oxygen Saturation 97% 08/12/2020 6:13 PM ACADEMIC DIRECTOR Inhaled Oxygen Concentration - - Weight 79.4 [...] 16 Negative Negative 11/04/2021 10:35 AM CDT [facility] TRAL LABORATORY TYPE 18 Negative Negative 11/04/2021 10:35 AM CDT [facility] TRA LABORATORY OTHER HIGH RISK TYPES Negative Negative 11/04/2021 10:35 AM CDT [facility] Tissue (Other) Client Collect / Unknown 10/14/2021 10:54 AM CDT 11/02/2021 5:19 PM CDT Narrative [facility] - 11/04/2021 10:35 AM CDT HPV types 16, 18, 31, 33, 35, 39, 45, 51, 52, 56, 58, 59, 66 and 68 DNA were undetectable or below the pre-set threshold. Methodology: Datorama Basilio 4800 HPV Test Doctor Unknown [facility]CRO[facility] [address] [place] [address], from Last 3 Months or Most Recently Relevant to Health Maintenance Care Teams Rotary Saw Operator Relationship Specialty Start Date End Date Sudha Greene NP [address] [place] [address] [place] [address] PCP - General Emergency Medicine 03/27/22
--- OUTSIDE RECORDS SUMMARY | 2024-04-03 07:11 | XMS_ITS | Continuity of Care Document ---
Author Organization [facility] Address [address] [address] [place] [address] Phone Care Team Providers Care Television Production Technician Name Role Phone Kobi SALDANA, Nima Unavailable Unavailable Allergies, Adverse Reactions, Alerts Substance Reaction Status Criticality erythromycin base HivesHives Active No Informa tion Medications Medication Instructions Dosage Effective Dates (start - stop) Status Comments lisinopril 10 mg tablet take 1 tablet by oral route every day 10 MG - Active metformin 1,000 mg tablet take 1 tablet by oral route 2 times every day with morning and evening meals 1000 MG - Active escitalopram 10 mg tablet take 1 tablet by oral route every day 10 MG - Active buspirone 10 mg tablet take 2 tablet by oral route every evening 20 MG - Active gabapentin 300 mg capsule take 1 capsule by oral route in AM and afternoon. Take 2 tablets by oral route at bedtime - Active ondansetron [address] 1 tablet by translingual route 2 times every day on top of the tongue where they will dissolve, then swallow 4 MG - Active simvastatin 20 mg tablet take 1 tablet by oral route every day in the evening 20 MG - Active sumatriptan 25 mg tablet take 1 tablet by oral route after onset of migraine; may repeat after 2 hours if headache returns,not to exceed 200mg in 24hrs 25 MG - Active trazodone 50 mg tablet take 1 tablet by oral route every day at bedtime 50 MG - Active Vitamin B-12 1,000 mcg tablet take 1 capsule by oral route every day 1500 MCG 1 capsule - Active DULOXETINE HCL (unknown strength) Take total of 90 mg daily Not Available - Active Procedures Procedure Date FibroScan Routine Serum Collection Offic/outpt E&m Estab Mod-mt 4 Offic/outpt E&m New Mod-hi Routine Serum Collection Advance Directives Directive Yes / No Effective Date File Name No Information Encounters Encounter Description Practice Location Reason(s) For Visit Diagnoses Date Provider Providers Copied on Encounter [facility], [address] [address], [place], [place], [id number], [place] tel:[phone] [facility] Nonalcoholic steatohepatitis (MORALES) 4 Kobi Herring. [address] [facility], [facility] [address], [place], [place], [id number] , [place]. [phone] Luisa Anthony MD. tel:[phone] erring Provider: Referral Self, USE FOR SELF REFERRALS. Offic/outpt E&m [facility] 4 [facility], [address] [address], [place], [place], [id number], [place] tel:[phone] [facility] GI Symptoms or Concerns (chief complaint) Metabolic dysfunction-assoc iated steatohepatitis (MASH) 4 Kobi Herring. [address] [facility], [facility] [address], [place], [place], [id number] , [place]. [phone] Luisa Anthony MD. tel:[phone] erring Provider: Referral Self, USE FOR SELF REFERRALS. [facility], [address] [address], [place], [place], [id number], [place] tel:[phone] [facility] No Information 4 Jarrod Busby. [address] [facility], [facility] [address], [place], [place], [id number] , [place]. tel: [phone] [facility], [address] [address], [place], [id number], [place] tel:[phone] [facility] Biliary dyskinesia 4 Jarrod Busby. [address] [facility], [facility] [address], [place], [id number] , [place]. tel: [phone] [facility], [address] [address], [place], [id number], [place] tel:[phone] [facility] FALGUNI positive 4 Jarrod Busby. [address] [facility], [facility] [address], [place], [id number] , [place]. tel: [phone] Offic/outpt E&m New Mod-hi [facility], [address] [address], [place], [id number], [place] tel:[phone] [facility] GI Symptoms or Concerns (chief complaint) Metabolic dysfunction-assoc iated steatotic liver disease (MASLD)RUQ painPostprandial nauseaFull incontinence of feces 4 Jarrod Busby. [facility], [place] [address], [place], [id number] , [place]. tel: [phone] Referring Provider: Sudha Greene [facility], [address] [place] [address], [address]. tel:[phone] [facility], [address] [address], [place], [id number], [place] tel:[phone] [facility] No Information 4 Cole Juarez. [address] [facility], [place] [address], [facility] [place], [id number] , [place]. tel: [phone] Family History Family Member Type Diagnosis Age At Onset Daughter Problem (finding) Irritable bowel syndrom e Daughter Problem (finding) Asthma Father Problem (finding) Alcoholism Sister Problem (finding) Irritable bowel syndrom e Son Problem (finding) GERD Father Problem (finding) Colon polyps Immunizations Vaccine Date Status Comments zoster vaccine recombinant administered N ote: [facility] bi-directional interface ; Source: Other Registry zoster vaccine recombinant administered N ote: [facility] bi-directional interface ; Source: Other Registry Influenza, Madin [place] Canin e Kidney, subunit, quadrivalent, injectable, preservative free administered Note: [facility] bi-directional interface ; Source: Other Registry SARS-COV-2 (COVID-19) vaccin e, mRNA, spike protein, LNP, bivalent, preservative free, 50 mcg/0.5 mL or 25 mcg/0.25 mL dose administered Note: [facility] bi-direct ional interface ; Source: Other Registry Influenza, injectable, Madin [place] Canine Kidney, preservative free, quadrivalent administered Note: [place] [facility] bi- directional interface ; Source: Other Registry SARS-COV-2 (COVID-19) vaccin e, mRNA, spike protein, LNP, preservative free, 100 mcg/0.5mL dose or 50 mcg/0.25mL dose administered Note: [facility] bi -directional interface ; Source: Other Registry SARS-COV-2 (COVID-19) vaccin e, mRNA, spike protein, LNP, preservative free, 30 mcg/0.3mL dose administered Note: [facility] bi-direct ional interface ; Source: Other Registry SARS-COV-2 (COVID-19) vaccin e, mRNA, spike protein, LNP, preservative free, 30 mcg/0.3mL dose administered Note: [facility] bi-direct ional interface ; Source: Other Registry Afluria Qd administered Note: [facility] bi-directional interface ; Source: Other Registry Afluria Qd administered Note: [facility] bi-directional interface ; Source: Other Registry tetanus toxoid, reduced diphtheria toxoid, and acellular pertussis vaccine, adsorbed administered Note: [facility] b i-directional interface ; Source: Other Registry Afluria Qd administered Note: [facility] bi-directional interface ; Source: Other Registry Pneumovax 23 administered Note: [facility] bi-d irectional interface ; Source: Other Registry Afluria Qd administered Note: [facility] bi-directional interface ; Source: Other Registry Influenza, split virus, trivalent, injectable, contains preservative administered Note: [facility] bi-direct ional interface ; Source: Other Registry Influenza, seasonal, injectable administe red Note: [facility] bi- directional interface ; Source: Other Registry Influenza, split virus, trivalent, injectable, contains preservative administered Note: [facility] bi-direct ional interface ; Source: Other Registry Influenza, seasonal, injectable administe red Note: [facility] bi- directional interface ; Source: Other Registry Influenza, split virus, trivalent, injectable, contains preservative administered Note: [facility] bi-direct ional interface ; Source: Other Registry Influenza, seasonal, injectable administe red Note: [facility] bi- directional interface ; Source: Other Registry tetanus and diphtheria toxoi ds, adsorbed, preservative free, for adult use (5 Lf of tetanus toxoid and 2 Lf of diphtheria toxoid) administered Note: [facility] bi-direct ional interface ; Source: Other Registry Payers Payer name Insurance type Covered democrat ID [facility]iza [id number] Social History Type Description Quantity Date Captured Comments Alcohol Use Details Unknown Caffeine Use Details Unknown Tobacco Use Status No Information Smoking Status No Information Sex Female Chief Complaint And Reason For Visit No Information Reason For Referral Reason For Referral No Information Plan Of Treatment Date Type Action Status Referral Ordered: FibroScan With CAP Appointment date/timeframe: 02/22/2024 ordered Referral Ordered: referred to [facility] Surgery decreased EF on HIDA, pain w CCK Appointment date/timeframe: 01/21/2024 ordered Referral Ordered: referred to Rheumatology positive FALGUNI ordered Referral Ordered: HIDA Scan Appointment date/timeframe: 11/26/2023 ordered Referral Ordered: referred to [facility] incontinence Appointment date/timeframe: 12/10/2023 ordered Appointment Megan Choi BOOKED History Of Present Illness Encounter Date Complaint History Of Prese nt Illness GI Symptoms or Concerns Chief co mplaint and reason for the visit: is metabolic dysfunction associated steatohepatitis. History of present illness: patient is a 58-year-old female who carries a diagnosis of diabetes mellitus on metformin, hypertension, hyperlipidemia, depression and anxiety and fibromyalgia. She is coming to us for what appears to be nonalcoholic steatohepatitis. Patient tells me as far as alcohol is concerned she does not drink alcoholic beverages. Symptom cedeno patient does not show any signs of chronic liver disease such fluid retention i.e. edema. She denies any melena hematemesis or hematochezia. She had a colonoscopy around 2 years ago. She stated that she habitually constipated and uses stool softeners such as MiraLax. But still has 2-3 bowel movements per week. She also admitted that she strains. Otherwise she has some right upper quadrant abdominal discomfort and has done a HIDA scan which showed that she has alkalotic cholecystitis which is chronic. Patient also status that she has occasionally some nausea but no vomiting. Patient has also issues with fibromyalgia which hinders her physical activity. She has also anxiety and depression for which she is on medication with aceto-white prolonged. She also has some insomnia and in fact get his trazodone 50 milligram a day. She is also on lisinopril for the hypertension. GI Symptoms or Concerns A 58-yea r-old woman with type 2 diabetes on metformin and diverticulosis, who presents for postprandial nausea and right upper quadrant pain, along with imaging findings suggestive of steatosis with an elevated alkaline phosphatase.She has been noticing postprandial nausea and right upper quadrant pain for months now. She underwent evaluation including ultrasound, CT, and MRCP which showed radiographic suggestion of steatosis without any biliary abnormalities. Her diabetes has been reasonably well controlled with an A1c of 7.1% on metformin. She has lost a little bit of weight since this has started as she has poor appetite and solid food will make her right upper quadrant pain worse. The right upper quadrant pain is present constantly, however. She feels very fatigued, especially after eating and notes dyspnea when even trying to walk up stairs. She had a colonoscopy and upper endoscopy last year. I do not have these records to review, but she was told she had a small po Functional Status Date Functional Assessmen t No Information Instructions Date Instruction Additional Infor agatha No Information Assessments Type Assessment Date assessment Nonalcoholic steatohepatitis (NA SH) Patient Care Teams Name Effective Dates (start - stop) Status Members No Information
--- OUTSIDE RECORDS SUMMARY | 2024-04-03 07:12 | XMS_ITS | Encounter Summary ---
Author Organization [facility] Address [address] [place] [address] Care Team Providers Care Board Runner Name Role Phone Noreen Flores APRN COAT IRONER HAND Unavailable Sudha Greene NP Primary Care Provider Agatha Null DPM, Podiatry /Foot and Ankle Surgery Unavailable [facility] - Nita [place] Unavailable Encounter Details Date Type Department Care Team (Late st Contact Info) Description 01/12/2023 [facility] Medical Advice [facility] [address] [place] [address] Agatha Null DPM, Podiatry/Foot and Ankle Surgery [address] [place] [address] Chronic pain of right ankle [...] Answer Date Recorded PHQ-2 Score 0 11/10/2020 [facility] [place] of Occupat ional Health - Occupational Stress [...] degree you have received? 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 Please let patient know. ThanksAgatha DPM CDT * Telephone Encounter - Haily Gandhi ATC - 01/12/2023 2:44 PM CDT Patient requesting order for knee scooter be placed for upcoming surgery. Order pended for providerreview/ signature. Haily Gandhi MSA, ATC Fur Glosser documented in this encounter Plan of Treatment Not on file documented as of this encounter Visit Diagnoses Diagnosis Chronic pain of right ankle- Primary Peroneal tendon tear, right, subsequent encounter documented in this encounter Additional Health Concerns Assessment Noted Time PHQ-9 Depression Total Score: 7 11/11/19 21 1:31 PM CDT documented as of this encounter Care Teams Board Runner Relationship Specialty Start Date End Date Sudha Greene NP [facility] - [address] [address] PCP - General 11/01/22 JeanaNoreen Ortiz APRN CNP [address] [place] [address] [place] [address] Assigned PCP 08/05/22 03/16/23 Agatha Null DPM, Podiatry/Foot and Ankle Surgery [address] [place] [address] Assigned Musculoskeletal Provider 11/04/22 [facility] Nita Pringle [facility] [address] [facility] [place] [address] Assigned PCP 07/05/23 12/31/23 documented as of this encounter
--- OUTSIDE RECORDS SUMMARY | 2024-04-03 07:12 | XMS_ITS | Encounter Summary ---
Author Organization [facility] Address [address] [place] [address] Care Team Providers Care Product Safety Coordinator Name Role Phone Noreen Flores APRN PATIENT INSURANCE CLERK Unavailable Noreen Flores APRN PATIENT INSURANCE CLERK Primary Car e Provider Kalyan Galvan Unavailable Unavailable Lashae Trevino [facility] Unavailable Eduardo Sharma MD Unavailable Rios Monteiro MD Unavailable [phone] Marcelo Artis PA-C Unavailable Rodrigo Man PA-C Unavailable [phone] Noreen Flores APRN PATIENT INSURANCE CLERK Unavailable Sudha Greene NP Primary Care Provider [phone] Agatha Null DPM, Podiatry /Foot and Ankle Surgery Unavailable Clinic - Nita [place] Unavailable Encounter Details Date Type Department Care Team (Late st Contact Info) Description 07/15/2020 Myra Moya [facility] [place] [address] [facility] [address] [place] [address] Noreen Flores APRN PATIENT INSURANCE CLERK [address] [facility] [place] [address] Social [...] PHQ-2 Score 2 07/25/2018 [facility] [place] of Occupat ional Health - Occupational Stress [...] on file Legal Sex Female 3:19 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 No / Unsure 07/17/2020 1:32 PM SENIOR DATA MINING ANALYST documented as of this encounter Plan [...] as of this encounter Care Teams Product Safety Coordinator Relationship Specialty Start Date End Date Noreen Flores APRN PATIENT INSURANCE CLERK [facility] [place] [address] PCP - General Nurse Practitioner 01/09/19 12/12/21 Sudha Greene NP [address] [address] PCP - General 11/01/22 Noreen Flores APRN PATIENT INSURANCE CLERK [address] [place] [address] [place] [address] Assigned PCP 06/16/18 05/26/22 Kalyan Galvan Personal Advocate & Liaison (PAL) 08/08/19 04/26/21 Lashae Trevino [facility] [address] [place] [address] Pharmacist Pharmacist 10/14/19 12/01/20 Eduardo Sharma MD [address] [place] [address] Assigned Sleep Provider 04/02/2005/07 Rios Monteiro MD [address] [place] [address] [address] [place] [address] Assigned Musculoskeletal Provider 04/02/20 08/24/20 Marcelo Artis PA-C [address] [place] [address] 300 [place] [address] Assigned Musculoskeletal Provider 08/25/20 08/20/21 Rodrigo Man PA-C [address] [place] [address] Assigned Surgical Provider 08/25/20 11/27/20 Noreen Flores APRN PATIENT INSURANCE CLERK [address] [place] [address] [place] [id number] Assigned PCP 08/05/22 03/16/23 Agatha Null DPM, Podiatry/Foot and Ankle Surgery [address] [place] [address] [facility] [address] [place] [address] Assigned Musculoskeletal Provider 11/04/22 [facility] - [place] [address] [facility] [place] [address] Assigned PCP 07/05/23 12/31/23 documented as of this encounter
--- OUTSIDE RECORDS SUMMARY | 2024-04-03 07:12 | XMS_ITS | Encounter Summary ---
Author Organization [facility] Address [address] [place] [address] Care Team Providers Care Six Sigma Black Trainer Name Role Phone Noreen Flores APRN, CNP Unavailable Noreen Flores APRN EARTH SCIENCE LABORATORY TECHNICIAN Primary Car e Provider Kalyan Galvan Unavailable Unavailable Lashae Trevino [facility] Unavailable Eduardo Sharma MD Unavailable Rios Monteiro MD Unavailable [phone] Marcelo Artis PA-C Unavailable [phone] Rodrigo Man PA-C Unavailable [phone] Noreen Flores APRN EARTH SCIENCE LABORATORY TECHNICIAN Unavailable Sudha Greene NP Primary Care Provider [phone] Agatha Null DPM, Podiatry /Foot and Ankle Surgery Unavailable Clinic - Nita Pring[facility] Unavailable Reason for Visit * Reason Comments Medication Refill Encounter Details Date Type Department Care Team (Late st Contact Info) Description 06/18/2020 Refill [facility] [place] [address] [place] [address] Noreen Flores APRN CNP [address] [facility] [place] [address] Medication Refill [...] 2 07/25/2018 [facility] [place] of Occupat ional Health - Occupational Stress [...] on file Legal Sex Female 3:19 AM UNIT AIDE TECH Gender Identity Female 08/26/2020 9:05 PM CDT Sexual Orientation Not on file 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 Desirae Champagne RN on 06/18/2020 at 10:52 AM AIDE TECH documented in this encounter Plan [...] documented as of this encounter Care Teams Six Sigma Black Trainer Relationship Specialty Start Date End Date Noreen Flores APRN EARTH SCIENCE LABORATORY TECHNICIAN [address] [place] [address] [place] [address] PCP - General Nurse Practitioner 01/09/19 12/12/21 Sudha Greene NP [address] [address] PCP - General 11/01/22 Noreen Flores APRN EARTH SCIENCE LABORATORY TECHNICIAN [address] [place] [address] [place] [address] Assigned PCP 06/16/18 05/26/22 Kalyan Galvan Personal Advocate & Liaison (PAL) 08/08/19 04/26/21 Lashae Trevino [facility] [address] [facility] [place] [address] Pharmacist Pharmacist 10/14/19 12/01/20 Eduardo Sharma MD [address] [place] [address] Assigned Sleep Provider 04/02/2005/07 Rios Monteiro MD [address] [place] [address] 300 [place], [place] [address] Assigned Musculoskeletal Provider 04/02/20 08/24/20 Marcelo Artis PA-C [address] [place] [address] 300 [place], [place] [address] Assigned Musculoskeletal Provider 08/25/20 08/20/21 Rodrigo Man PA-C [address] [place] [address] Assigned Surgical Provider 08/25/20 11/27/20 Noreen Flores APRN EARTH SCIENCE LABORATORY TECHNICIAN [address] [place] [address] [place] [address] Assigned PCP 08/05/22 03/16/23 Agatha Null DPM, Podiatry/Foot and Ankle Surgery [address] [place] [address] [facility] 300 [place] [address] Assigned Musculoskeletal Provider 11/04/22 [facility] [address] [facility] [place] [id number] Assigned PCP 07/05/23 12/31/23 documented as of this encounter
--- OUTSIDE RECORDS SUMMARY | 2024-04-03 07:12 | XMS_ITS | Encounter Summary ---
Author Organization [facility] Address [address] [place] [address] Care Team Providers Care Senior Stereo Compiler Team Lead Name Role Phone Noreen Flores APRN PRODUCE TEAM LEAD Unavailable Noreen Flores APRN PRODUCE TEAM LEAD Primary Car e Provider Kalyan Galvan Unavailable Unavailable Lashae Trevino [facility] Unavailable [phone] Eduardo Sharma MD Unavailable Marcelo Artis PA-C Unavailable Rodrigo ManC Unavailable [phone] Noreen Flores APRN PRODUCE TEAM LEAD Unavailable Sudha Greene NP Primary Care Provider Agatha Null DPM, Podiatry /Foot and Ankle Surgery Unavailable [facility] - Nita [place]ringle [facility] Unavailable Encounter Details Date Type Department Care Team (Late st Contact Info) Description 10/28/2020 Myra Moya [facility] [place] [address] [facility] [address] [place] [address] Lashae Trevino, [facility] [address] [facility] [place] [address] Social History [...] Answer Date Recorded PHQ-2 Score 2 07/25/2018 [facility] [...] on file Legal Sex Female 3:19 AM 911 EMERGENCY DISPATCHER Gender Identity Female 08/26/2020 9:05 PM CDT [...] as of this encounter Care Teams Senior Stereo Compiler Team Lead Relationship Specialty Start Date End Date Noreen Flores APRN PRODUCE TEAM LEAD [address] [place] [address] [place] [address] PCP - General Nurse Practitioner 01/09/19 12/12/21 Sudha Greene NP [address] [address] PCP - General 11/01/22 Noreen Flores APRN PRODUCE TEAM LEAD [address] [place] [address] [place] [address] Assigned PCP 06/16/18 05/26/22 Kalyan Galvan Personal Advocate & Liaison (PAL) 08/08/19 04/26/21 Lashae Trevino, [facility] [address] [facility] [place] [address] Pharmacist Pharmacist 10/14/19 12/01/20 Eduardo Sharma MD [address] [facility] [address] [place], [place] [address] Assigned Sleep Provider 04/02/2005/07 Marcelo Artis, [facility] [address] [facility] [address] [place] [address] Assigned Musculoskeletal Provider 08/25/20 08/20/21 Rodrigo Man PA-C [address] [place] [address] Assigned Surgical Provider 08/25/20 11/27/20 Noreen Flores APRN PRODUCE TEAM LEAD [address] [facility] [place] [address] Assigned PCP 08/05/22 03/16/23 Agatha Null DPM, Podiatry/Foot and Ankle Surgery [address] [place] [address] Assigned Musculoskeletal Provider 11/04/22 Clinic - Nita Pringle [facility] [address] [facility] [place] [id number] Assigned PCP 07/05/23 12/31/23 documented as of this encounter
--- OUTSIDE RECORDS SUMMARY | 2024-04-03 07:12 | XMS_ITS | Referral Summary ---
Author Organization [facility] Address [address] [place] [id number] Care Team Providers Care Marble Setter Helper Name Role Phone Sudha Greene NP Primary Care Provider Agatha Null DPM, Podiatry /Foot and Ankle Surgery Unavailable Allergies Active Allergy Reactions Criticality Noted Date Comments Azithromycin Other (See Comments) 01/10/2022 Erythromycin Rash Low 04/13/2008 As a child Erythromycin Hives High 06/20/2001 Medications blood glucose (ACCU-CHEK JANICE) test stripIndications :Type 2 diabetes, HbA1c goal < 7% (H) 1 strip by In Vitro route 2 times daily 100 strip prn 4 Active Additional Information Patient not taking.Reported on 01/03/2021 JAY/ARB NOT PRESCRIBED, INTENTIONAL,Brianna cations:Type 2 diabetes, HbA1c goal < 7% (H),Hypertension goal BP (blood pressure) < 130/80 1 each daily JAY & ARB not prescribed due to not needed 4 Active Acetaminophen (TYLENOL PO) Take 1,000 mg by mouth daily as needed for mild pain or fever Active simvastatin (ZOCOR) 20 MG tabletIndication s:Hyperlipidemia LDL goal <100,Type 2 diabetes mellitus with complication, without long-term current use of insulin (H) Take 1 tab daily 90 tablet 3 0 Active fluticasone (FLONASE) 50 MCG/ACT nasal sprayIndications :Allergic rhinitis, unspecified seasonality, unspecified trigger Mcdonald 1-2 sprays into both nostrils daily 16 g 11 0 Active blood glucose (NO BRAND SPECIFIED) lancets standardIndicati ons:Type 2 diabetes, HbA1c goal < 7% (H) Use to test blood sugar 2 times daily or as directed. 100 each 11 1 Active blood glucose (NO BRAND SPECIFIED) test stripIndications :Type 2 diabetes, HbA1c goal < 7% (H) Use to test blood sugar 2 times daily or as directed. 1 Box 11 1 Active metFORMIN (GLUCOPHAGE) 500 MG tabletIndication s:Type 2 diabetes mellitus with complication, without long-term current use of insulin (H) TAKE 2 TABLETS BY MOUTH 2 TIMES DAILY (WITH MEALS) 360 tablet 1 Active SUMAtriptan (IMITREX) 25 MG tabletIndication s:Migraine without status migrainosus, not intractable, unspecified migraine type TAKE 1 TO 2 TABLETS BY MOUTH ONCE FOR MIGRAINE. OK TO REPEAT X 1 AFTER 2HOURS. MAX 12TAB/25DAYS INS 12 tablet 8 1 Active zolpidem (AMBIEN) 5 MG tabletIndication s:Persistent insomnia Take 1 tab nightly 30 tablet 5 1 Active DULoxetine (CYMBALTA) 30 MG capsuleIndicatio ns:Fibromyalgia TAKE 1 CAPSULE BY MOUTH EVERY DAY 90 capsule 1 1 Active Additional Information Patient taking differently: 60 [...] mouth daily Active oxyCODONE (ROXICODONE) 5 MG tabletIndication s:Type 2 diabetes mellitus with complication, without long-term current use of insulin (H),Peroneal tendon tear, right, sequela,Post-ope rative state Take 1-2 tablets (5-10 mg) by mouth every 4 hours as needed for moderate to severe pain 30 tablet 3 Active senna-docusate (SENOKOT-S/PERIC OLACE) 8.6-50 MG tabletIndication s:Type 2 diabetes mellitus with complication, without long-term current use of insulin (H),Peroneal tendon tear, right, sequela,Post-ope rative state Take 1-2 tablets by mouth 2 times daily 30 tablet 3 Active ondansetron (ZOFRAN ODT) 4 MG ODT tabIndications:T ype 2 diabetes mellitus with complication, without long-term current use of insulin (H),Peroneal tendon tear, right, sequela,Post-ope rative state Take 1 tablet (4 mg) by mouth every 8 hours as needed for nausea 4 tablet 3 Active HYDROcodone-acet aminophen (NORCO) 5-325 MG tabletIndication s:Post-operative state Take 1 tablet by mouth every 4 hours as needed for pain 30 tablet 3 Active escitalopram (LEXAPRO) 10 MG tablet Take 1 tablet by mouth daily at 2 pm 3 Active Hospital, Clinic, or Other Facility Administered [...] Noted Date Diagnosed Date Chest pain 03/16/2020 Overview (03/16/2020): Normal stress test 2019 Per cards e-consult, stress test isn't 100% negative predicted. Given intermediate risk, he though CT angio would be reasonable. Ordered.March 16, 2020 Morbid obesity 08/08/2019 Dry mouth 08/08/2019 Overview (08/08/2019): Also dry eyes. Have not had time to investigate. 07/2019 Pain of left lower leg 08/08/2019 Overview (08/08/2019): See 07/2019. Likely radicular sx. 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 No pre-cancerous cells. Treated with steroid. No current sx. Monitor with paps. Allergic rhinitis, unspecifi ed seasonality, unspecified trigger 05/05/2011 Hyperlipidemia LDL goal <100 02/15/2010 Type 2 diabetes mellitus wit h complication, without long-term current use of insulin 01/28/2010 Persistent insomnia 01/12/2010 Overview (08/08/2019): [place]. Investigating 07/2019 why she is only allowed 20 tabs per month Migraine headache 04/13/2008 Overview (08/08/2019): Increased topamax and sleep study ordered 07/2019. If no improvement refer back to neuro. Dr. Martinez, neurology (Problem list name updated by automated process. Provider to review and confirm.) GERD (gastroesophageal reflux disease) 8 Overview (08/08/2019): 07/2019 Did not have time to address PPI use. Address next visit Family history of [place] (myocardial infarction) 08/2007 Overview (04/13/2008): At early age, father [place] at age [...] 10/03/2015 03/26/2016 Low back pain 11/15/2011 08/07/2019 Overview (04/12/2015): Diagnosis updated by automated process. Provider to review and confirm. Menorrhagia 10/18/2011 11/01/2015 Hypertension goal BP (blood pressure) < 130/80 02/15/2010 12/24/2015 Upper back pain 01/18/2010 08/07/2019 Other peripheral enthesopathies 01/14/2010 03/15/2010 Prediabetes 01/12/2010 01/28/2010 Cervical pain 11/24/2009 07/14/2016 CARDIOVASCULAR SCREENING; LD L GOAL LESS THAN 160 07/21/2009 02/15/2010 Lateral epicondylitis 03/24/20092009 Overview (03/12/2015): Problem list name updated by automated process. 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 Not on file Not on file Not on file Last Filed Vital Signs Vital Sign Reading Time Taken Comments Blood Pressure 128/80 05/11/2023 1:07 PM TECHNOLOGY AND ENGINEERING TEACHER Pulse 87 02/26/2023 3:58 PM CDT Temperature 36.2 ??C (97.2 ??F) 02/26/2023 3:58 PM CD T Respiratory Rate 12 02/26/2023 3:13 PM CDT Oxygen Saturation 95% 02/26/2023 4:00 PM CDT Inhaled Oxygen Concentration - - Weight 87.1 kg (192 lb) 05/11/2023 1:07 PM TECHNOLOGY AND ENGINEERING TEACHER Height 156 cm (5' 1.42) 02/26/2023 11:19 AM CDT Body Mass Index 35.79 02/26/2023 11:19 AM CDT Plan of Treatment Not on file Procedures Procedure Name Priority Date/Time Associated Diagnosis Comments COMPREHENSIVE METABOLIC PANEL Routine 11/10/2020 2:29 PM CDT Polyarthralgia EYE EXAM - HIM SCAN 05/17/2020 1 2:00 AM TECHNOLOGY AND ENGINEERING TEACHER HEMOGLOBIN A1C Routine 01/13/2020 8:55 AM CDT Type 2 diabetes mellitus with complication, without long-term current use of insulin (H) FECAL COLORECTAL CANCER SCREEN FIT Routine 01/12/2020 8:00 AM CDT Health care maintenance ALBUMIN RANDOM URINE QUANTITATIVE Routine 08/08/2019 10:17 AM TECHNOLOGY AND ENGINEERING TEACHER Routine general medical examination at a health care facility LIPID REFLEX TO DIRECT LDL PANEL Routine 08/08/2019 10:17 AM TECHNOLOGY AND ENGINEERING TEACHER Routine general medical examination at a health [...] TYPES DNA CERVICAL Routine 05/03/2016 12:17 PM TECHNOLOGY AND ENGINEERING TEACHER Cervical cancer screening PAP IMAGED THIN LAYER SCREEN Routine 05/03/2016 12:00 AM TECHNOLOGY AND ENGINEERING TEACHER Cervical cancer screening C FOOT EXAM Routine 10/06/2014 9:47 AM CDT Type 2 diabetes, HbA1C goal < 7% (H) from Last 3 Months or Most Recently Relevant to Health Maintenance Results * (ABNORMAL) Comprehensive metabolic panel (11/10/2020 2:29 PM CDT) Sodium 142 133 - 144 mmol/L 11/10/2020 7:[address] [facility] Potassium 4.0 3.4 - 5.3 mmol/L 11/10/2020 7:[address] [facility] Chloride 112(H) 94 - 109 mmol/L 11/10/2020 7:[address] [facility] Carbon Dioxide 27 20 - 32 mmol/L 11/10/2020 7:[address] [facility] Anion Gap 4 3 - 14 mmol/L 11/10/2020 7:[address] [facility] Glucose 96 70 - 99 mg/dL 11/10/2020 7:[address] [facility] Urea Nitrogen 14 7 - 30 mg/dL 11/10/2020 7:[address] [facility] Creatinine 0.74 0.52 - 1.04 mg/dL 11/10/2020 7:[address] [facility] GFR Estimate >90 >60 mL/min/{1 .73_m2} 11/10/2020 7:[address] [facility] Comment: Non GFR Calc Starting 05/28/2018, serum creatinine based estimated GFR (eGFR) will be calculated using the Chronic Kidney Disease Epidemiology Collaboration (CKD-EPI) equation. GFR Estimate If Black >90 >60 mL/min/{1 .73_m2} 11/10/2020 7:[address] [facility] Comment: GFR Calc Starting 05/28/2018, serum creatinine based estimated GFR (eGFR) will be calculated using the Chronic Kidney Disease Epidemiology Collaboration (CKD-EPI) equation. Calcium 9.3 8.5 - 10.1 mg/dL 11/10/2020 7:[address] [facility] Bilirubin Total 0.6 0.2 - 1.3 mg/dL 11/10/2020 8:[address] [facility] Albumin 3.6 3.4 - 5.0 g/dL 11/10/2020 8:[address] [facility] Protein Total 7.2 6.8 - 8.8 g/dL 11/10/2020 8:[address] [facility] Alkaline Phosphatase 143 40 - 150 U/L 11/10/2020 8:[address] [facility] ALT 23 0 - 50 U/L 11/10/2020 8:[address] [facility] AST 16 0 - 45 U/L 11/10/2020 8:[address] [facility] Blood 11/10/2020 2:29 PM CDT 11/10/2020 3:04 PM CDT us Kavin Fitzgerald PA-C LAB - BLOOD ORDER ILDEFONSO Final Result [facility] [address] [place] [address] * EYE EXAM - HIM SCAN (05/17/2020 12:00 AM TECHNOLOGY AND ENGINEERING TEACHER) RETINOPATHY NEGATIVE 05/17/2020 Narrative Lauren Posada - 05/17/2020 12:00 AM TECHNOLOGY AND ENGINEERING TEACHER DIABETIC EYE EXAM [facility] us Provider Outside OTHER Edited Result - Final * (ABNORMAL) A1C FUTURE 1yr (01/13/2020 8:55 AM CDT) Hemoglobin A1C 6.1(H) 0 - 5.6 % 01/13/2020 9:27 AM CDT [facility] Comment: Normal <5.7% Prediabetes 5.7-6.4% ??Diabetes 6.5% or higher - adopted from ADA consensus guidelines. Blood specimen (specimen) 01/13/2020 8:55 AM CDT 01/13/2020 8:56 AM CDT Noreen Flores APRN, CNP LAB - BLOOD ORDERABLES Final Result Performing Organization Address City/[facility]/ZIP Co de Phone Number [facility] [address] [place] [address] * Fecal colorectal cancer screen (FIT) (01/12/2020 8:00 AM CDT) Occult Blood Scn FIT Negative NEG^Negati ve 01/18/2020 4:[address] [facility] Stool specimen (specimen) 01/12/2020 8:00 AM CDT 01/18/2020 1:16 PM CDT Noreen Flores APRN, CNP LAB - STOOLS ORDERABLES Final Result Performing Organization Address [facility] Co de Phone Number [facility] [address] [place] [address] * Albumin Random Urine Quantitative with Creat Ratio (08/08/2019 10:17 AM TECHNOLOGY AND ENGINEERING TEACHER) Creatinine Urine 154 mg/dL 08/09/2019 1:54 PM TECHNOLOGY AND ENGINEERING TEACHER [facility] Albumin Urine mg/L 11 mg/L 08/09/2019 1:59 PM TECHNOLOGY AND ENGINEERING TEACHER [facility] Albumin Urine mg/g Cr 7.14 0 - 25 mg/g Cr 08/09/2019 1:59 PM TECHNOLOGY AND ENGINEERING TEACHER [facility] Urine specimen (specimen) 08/08/2019 10:17 AM TECHNOLOGY AND ENGINEERING TEACHER 08/08/2019 10:18 AM TECHNOLOGY AND ENGINEERING TEACHER Noreen Flores APRN, CNP LAB - URINE ORDERABLES Final Result Performing Organization Address City/[facility]/ZIP Co de Phone Number [facility] [address] [place] [address] * (ABNORMAL) Lipid panel reflex to direct LDL Fasting (08/08/2019 10:17 AM TECHNOLOGY AND ENGINEERING TEACHER) Cholesterol 180 <200 mg/dL 08/08/2019 7:47 PM [facility] Triglycerides 153(H) <150 mg/dL 08/08/2019 7:47 PM [facility] Comment: Borderline high: ??150-199 mg/dl High: ? 200-499 mg/dl Very high: ? >499 mg/dl HDL Cholesterol 46(L) >49 mg/dL 0 7:47 PM [facility] LDL Cholesterol Calculated 103(H) <100 mg/dL 08/08/2019 7:47 PM [facility] Comment: Above desirable: ??100-129 mg/dl Borderline High: ??130-159 mg/dL High: ? 160-189 mg/dL Very high: ? >189 mg/dl Non HDL Cholesterol 134(H) <130 mg/dL 08/08/2019 7:47 PM [facility] Comment: Above Desirable: ??130-159 mg/dl Borderline high: ??160-189 mg/dl High: ? 190-219 mg/dl Very high: ? >219 mg/dl Blood specimen (specimen) 08/08/2019 10:17 AM TECHNOLOGY AND ENGINEERING TEACHER 08/08/2019 10:18 AM TECHNOLOGY AND ENGINEERING TEACHER Noreen Flores [employer]IL BOARD MAN LAB - BLOOD ORDERABLES Final Result Performing Organization Address City/State/[facility] Co de Phone Number [facility] [address], [place] [address], [facility] [phone] * *MA Screening Digital Bilateral (09/03/2018 10:13 [...] fibroglandular densities. CLINICAL INFORMATION: Breast screening. [facility], 09/30/15, 04/16/15, 05/27/13 FINDINGS: Negative. Stable exam. Screening exam in one year recommended. IMPRESSION: BI-RADS CATEGORY: 1 - Negative. RECOMMENDED FOLLOW-UP: Annual Mammography. PANCHITO DESIR MD Noreen Flores APRN, CNP IMG MAMMOGRA PHY ORDERABLES Final Result * HIV Antigen Antibody Combo (04/09/2018 10:09 AM CDT) HIV Antigen Antibody Combo Nonreactive NR^Nonrea ctive 04/10/2018 7:29 AM CDT [facility] Comment:HIV-1 p24 Ag & HIV-1 /HIV-2 Ab Not Detected Blood specimen (specimen) 04/09/2018 10:09 AM CDT 04/09/2018 10:15 AM CDT us Noreen Flores APRN, CNP LAB - BLOOD ORDERABLES Final Result [facility] [address] [place], [place] [address] * Hepatitis C Screen Reflex to HCV RNA Quant and Genotype (09/25/2016 2:30 PM CDT) Hepatitis C Antibody Nonreactive Assay performance characteristics have not been established for newborns, infants, and children NR [facility] Blood specimen (specimen) 09/25/2016 2:30 PM CDT 09/26/2016 11:29 AM CDT us Vanda Borja MD LAB - BLOOD ORDERABLES Fi nal Result [facility] [address] [place] [address] * HPV High Risk Types DNA Cervical (05/03/2016 12:17 PM TECHNOLOGY AND ENGINEERING TEACHER) HPV 16 DNA Negative [facility]G [facility] HPV 18 DNA Negative NEG [facility] Other HR HPV Negative NEG [facility] Final Diagnosis This patient's sample is negative for HPV DNA. (Note) METHODOLOGY: ??The BringMeThat kandy [id number] system uses automated extraction, simultaneous [...] and its performance characteristics determined by the [facility], Molecular Diagnostics Laboratory. It has not been cleared or approved by the FDA. The laboratory is regulated under CLIA as qualified to perform high-complexity testing. This test is used for clinical purposes. It should not be regarded as investigational or for research. [facility] Specimen Description Cervical Cells [id number] [facility] Cervical Cells 05/03/2016 12 :17 PM TECHNOLOGY AND ENGINEERING TEACHER 05/03/2016 12:20 PM TECHNOLOGY AND ENGINEERING TEACHER us Vanda Borja MD LAB - BLOOD ORDERABLES Fi nal Result Performing Organization Address City/[facility]/ZIP Co de Phone Number [facility] [address] [place] [address] * Pap imaged thin layer screen with HPV - recommended age 30 - 65 years (select HPV order below) (05/03/2016 12:00 AM TECHNOLOGY AND ENGINEERING TEACHER) PAP RAMSEY Turner Report Patient Name: MEGAN WONG MR#: [id number] Specimen #: [id number] Collected: 05/03/2016 Received: 05/05/2016 Reported: 05/09/2016 08:26 [...] TARIQ Wick (ASCP) Processed and screened at [facility], [facility] CLINICAL HISTORY: LMP: 10/30/11 Post Menopausal, Previous normal pap Date of Last Pap: 10/06/14, Papanicolaou Test Limitations: ??Cervical cytology is a screening test with limited sensitivity; regular screening is critical for cancer prevention; Pap tests are primarily effective for the diagnosis/preventi on of squamous cell carcinoma, not adenocarcinomas or other cancers. TESTING LAB LOCATION: [address] ??[id number] COLLECTION SITE: Client: ??[facility] Location: [place] (R) Cytologic material (specimen) 05/03/2016 05/05/2016 10:22 AM TECHNOLOGY AND ENGINEERING TEACHER us Vanda Borja MD LAB - [facility] Final Result COPATH from Last 3 Months or Most Recently Relevant to Health Maintenance Insurance NONE (Work) [address] [place] [id number] BCBS OUT OF STATE BCBS OUT OF STATE * Guarantor: Megan Wong Account Type Relation to Patient Date of Phone Billing Address Medication Therapy Self 1965 NONE (Work) [address] [place] [address] BCBS OUT OF STATE Care Teams Marble Setter Helper Relationship Specialty Start Date End Date Sudha Greene NP [address] [address] PCP - General 11/01/22 Agatha Null DPM, Podiatry/Foot and Ankle Surgery [address] [place] [address] Assigned Musculoskeletal Provider 11/04/22
--- OUTSIDE RECORDS SUMMARY | 2024-04-03 07:12 | XMS_ITS | Clinical Summary ---
Author Organization [place] Address [address] [place] [address] Care Team Providers Care Services Clerk Name Role Phone Sudha Greene NP [...] sprayIndications :Allergic rhinitis, unspecified seasonality, unspecified trigger Hershey 1-2 sprays into both nostrils daily 16 [...] Family history of [place] (myocardial infarction) 08/2007 Overview (04/13/2008): At early age, father [place] at age [...] Answer Date Recorded PHQ-2 Score 0 11/10/2020 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 Not on file Not on file Last Filed Vital Signs Vital Sign Reading Time Taken Comments Blood Pressure 128/80 05/11/2023 1:07 PM NEW CAR MAKE READY WORKER Pulse 87 02/26/2023 3:58 PM CDT Temperature 36.2 ??C (97.2 ??F) 02/26/2023 3:58 PM CD T Respiratory Rate 12 02/26/2023 3:13 PM CDT Oxygen Saturation 95% 02/26/2023 4:00 PM CDT Inhaled Oxygen Concentration - - Weight 87.1 kg (192 lb) 05/11/2023 1:07 PM NEW CAR MAKE READY WORKER Height 156 cm (5' 1.42) 02/26/2023 [...] 12/22/2015, Additional history exists LIPID 08/08/2020 08/08/2019, 10, 02/17/2017, Additional history exists MICROALBUMIN 08/08/2020 08/08/2019, [...] - HIM SCAN 05/17/2020 1 2:00 AM NEW CAR MAKE READY WORKER HEMOGLOBIN A1C Routine 01/13/2020 8:55 AM CDT Type 2 diabetes mellitus with complication, without long-term current use of insulin (H) FECAL COLORECTAL CANCER SCREEN FIT Routine 01/12/2020 8:00 AM CDT Health care maintenance ALBUMIN RANDOM URINE QUANTITATIVE Routine 08/08/2019 10:17 AM NEW CAR MAKE READY WORKER Routine general medical examination at a health care facility LIPID REFLEX TO DIRECT LDL PANEL Routine 08/08/2019 10:17 AM NEW CAR MAKE READY WORKER Routine general medical examination at a [...] TYPES DNA CERVICAL Routine 05/03/2016 12:17 PM NEW CAR MAKE READY WORKER Cervical cancer screening PAP IMAGED THIN LAYER SCREEN Routine 05/03/2016 12:00 AM NEW CAR MAKE READY WORKER Cervical cancer screening C FOOT EXAM Routine 10/06/2014 9:47 AM CDT Type 2 diabetes, HbA1C goal < 7% (H) from Last 3 Months or Most Recently Relevant to Health Maintenance Results * (ABNORMAL) Comprehensive metabolic panel (11/10/2020 2:29 PM CDT) Sodium 142 133 - 144 mmol/L 11/10/2020 7:51 PM CDT [facility] Potassium 4.0 3.4 - 5.3 mmol/L 11/10/2020 7:51 PM CDT [facility] Chloride 112(H) 94 - 109 mmol/L 11/10/2020 7:51 PM CDT [facility] Carbon Dioxide 27 20 - 32 mmol/L 11/10/2020 7:58 PM CDT [facility] Anion Gap 4 3 - 14 mmol/L 11/10/2020 7:58 PM CDT [facility] Glucose 96 70 - 99 mg/dL 11/10/2020 7:58 PM CDT [facility] Urea Nitrogen 14 7 - 30 mg/dL 11/10/2020 7:58 PM CDT [facility] Creatinine 0.74 0.52 - 1.04 mg/dL 11/10/2020 7:58 PM CDT [facility] GFR Estimate >90 >60 mL/min/{1 .73_m2} 11/10/2020 7:58 PM CDT [facility] Comment: Non GFR Calc Starting 05/28/2018, serum creatinine based estimated GFR (eGFR) will be calculated using the Chronic Kidney Disease Epidemiology Collaboration (CKD-EPI) equation. GFR Estimate If Black >90 >60 mL/min/{1 .73_m2} 11/10/2020 7:58 PM CDT [facility] Comment: GFR Calc Starting 05/28/2018, serum creatinine based estimated GFR (eGFR) will be calculated using the Chronic Kidney Disease Epidemiology Collaboration (CKD-EPI) equation. Calcium 9.3 8.5 - 10.1 mg/dL 11/10/2020 7:58 PM CDT [facility] Bilirubin Total 0.6 0.2 - 1.3 mg/dL 11/10/2020 8:01 PM CDT [facility] Albumin 3.6 3.4 - 5.0 g/dL 11/10/2020 8:01 PM CDT [facility] Protein Total 7.2 6.8 - 8.8 g/dL 11/10/2020 8:01 PM CDT [facility] Alkaline Phosphatase 143 40 - 150 U/L 11/10/2020 8:01 PM CDT [facility] ALT 23 0 - 50 U/L 11/10/2020 8:01 PM CDT [facility] AST 16 0 - 45 U/L 11/10/2020 8:01 PM CDT [facility] Blood 11/10/2020 2:29 PM CDT 11/10/2020 3:04 PM CDT us Kavin Fitzgerald PA-C LAB - BLOOD ORDER ILDEFONSO Final Result [facility] [address] [place] [address] * EYE EXAM - HIM SCAN (05/17/2020 12:00 AM NEW CAR MAKE READY WORKER) RETINOPATHY NEGATIVE 05/17/2020 Narrative Lauren Posada - 05/17/2020 12:00 AM NEW CAR MAKE READY WORKER DIABETIC EYE EXAM [facility] us Provider Outside OTHER Edited Result - Final * (ABNORMAL) A1C FUTURE 1yr (01/13/2020 8:55 AM CDT) Hemoglobin A1C 6.1(H) 0 - 5.6 % 01/13/2020 9:27 AM CDT [facility] Comment: Normal <5.7% Prediabetes 5.7-6.4% ??Diabetes 6.5% or higher - adopted from ADA consensus guidelines. Blood specimen (specimen) 01/13/2020 8:55 AM CDT 01/13/2020 8:56 AM CDT us Noreen Flores APRN ROUTE PROCESS ADMINISTRATOR LAB - BLOOD ORDERABLES Final Result [facility] [address] [place] [address] * Fecal colorectal cancer screen (FIT) (01/12/2020 8:00 AM CDT) Occult Blood Scn FIT Negative NEG^Negati ve 01/18/2020 4:19 PM CDT [facility] Stool specimen (specimen) 01/12/2020 8:00 AM CDT 01/18/2020 1:16 PM CDT Noreen Flores APRN, CNP LAB - STOOLS ORDERABLES Final Result Performing Organization Address [facility]/ZIP Co de Phone Number [facility] [address] [place] [address] * Albumin Random Urine Quantitative with Creat Ratio (08/08/2019 10:17 AM NEW CAR MAKE READY WORKER) Pathologist [facility] Creatinine Urine 154 mg/dL 08/09/2019 1:54 PM NEW CAR MAKE READY WORKER [facility] Albumin Urine mg/L 11 mg/L 08/09/2019 1:59 PM NEW CAR MAKE READY WORKER [facility] Albumin Urine mg/g Cr 7.14 0 - 25 mg/g Cr 08/09/2019 1:59 PM NEW CAR MAKE READY WORKER [facility] Urine specimen (specimen) 08/08/2019 10:17 AM NEW CAR MAKE READY WORKER 08/08/2019 10:18 AM NEW CAR MAKE READY WORKER us Noreen Flores APRN, CNP LAB - URINE ORDERABLES Final Result Performing Organization Address City/[facility]/ZIP Co de Phone Number [facility] [address] [place] [address] * (ABNORMAL) Lipid panel reflex to direct LDL Fasting (08/08/2019 10:17 AM NEW CAR MAKE READY WORKER) Cholesterol 180 <200 mg/dL 08/08/2019 7:47 PM NEW CAR MAKE READY WORKER [facility] Triglycerides 153(H) <150 mg/dL 08/08/2019 7:47 PM [facility] Comment: Borderline high: ??150-199 mg/dl High: ? 200-499 mg/dl Very high: ? >499 mg/dl HDL Cholesterol 46(L) >49 mg/dL 0 7:47 PM [facility] LDL Cholesterol Calculated 103(H) <100 mg/dL 08/08/2019 7:47 PM [facility] Comment: Above desirable: ??100-129 mg/dl Borderline High: ??130-159 mg/dL High: ? 160-189 mg/dL Very high: ? >189 mg/dl Non HDL Cholesterol 134(H) <130 mg/dL 08/08/2019 7:47 PM [facility] Comment: Above Desirable: ??130-159 mg/dl Borderline high: ??160-189 mg/dl High: ? 190-219 mg/dl Very high: ? >219 mg/dl Blood specimen (specimen) 08/08/2019 10:17 AM NEW CAR MAKE READY WORKER 08/08/2019 10:18 AM NEW CAR MAKE READY WORKER Noreen Flores APRN ROUTE PROCESS ADMINISTRATOR LAB - BLOOD ORDERABLES Final Result Performing Organization Address City/State/[facility] Co de Phone Number [facility] [address] [place] [address], [facility] [phone] * *MA Screening Digital Bilateral (09/03/2018 10:13 [...] fibroglandular densities. CLINICAL INFORMATION: Breast screening. [facility], 09/30/15, 04/16/15, 05/27/13 FINDINGS: Negative. Stable exam. Screening exam in one year recommended. IMPRESSION: BI-RADS CATEGORY: 1 - Negative. RECOMMENDED FOLLOW-UP: Annual Mammography. PANCHITO DESIR MD Noreen Flores APRN, CNP IMG MAMMOGRA PHY ORDERABLES Final Result * HIV Antigen Antibody Combo (04/09/2018 10:09 AM CDT) HIV Antigen Antibody Combo Nonreactive NR^Nonrea ctive 04/10/2018 7:[address] [facility] Comment:HIV-1 p24 Ag & HIV-1 /HIV-2 Ab Not Detected Blood specimen (specimen) 04/09/2018 10:09 AM CDT 04/09/2018 10:15 AM CDT us Noreen Flores APRN, CNP LAB - BLOOD ORDERABLES Final Result Performing Organization Address City/[facility] de Phone Number [facility] [address] [place], [place] [id number] [place] [address] * Hepatitis C Screen Reflex to HCV RNA Quant and Genotype (09/25/2016 2:30 PM CDT) Hepatitis C Antibody Nonreactive Assay performance characteristics have not been established for newborns, infants, and children NR [facility] Blood specimen (specimen) 09/25/2016 2:30 PM CDT 09/26/2016 11:29 AM CDT Vanda Borja MD LAB - BLOOD ORDERABLES Fi nal Result Performing Organization Address City/[facility]/ZIP Co de Phone Number [facility] [address] [place] [address] * HPV High Risk Types DNA Cervical (05/03/2016 12:17 PM NEW CAR MAKE READY WORKER) HPV 16 DNA Negative NEG [facility] HPV 18 DNA Negative NEG [facility] Other HR HPV Negative NEG [facility] Final Diagnosis This patient's sample is negative for HPV DNA. (Note) METHODOLOGY: ??The OpenChime kandy [id number] system uses automated extraction, simultaneous [...] be regarded as investigational or for research. [facility] Specimen Description Cervical Cells [id number] [facility] Cervical Cells 05/03/2016 12 :17 PM NEW CAR MAKE READY WORKER 05/03/2016 12:20 PM NEW CAR MAKE READY WORKER us Vanda Borja MD LAB - BLOOD ORDERABLES Fi nal Result Performing Organization Address City/[facility]/ZIP Co de Phone Number [facility] [address] [place] [address] * Pap imaged thin layer screen with HPV - recommended age 30 - 65 years (select HPV order below) (05/03/2016 12:00 AM NEW CAR MAKE READY WORKER) PAP NIL YUE Wren Report Patient Name: MEGAN WONG MR#: [id number] Specimen #: [id number] Collected: 05/03/2016 Received: 05/05/2016 Reported: 05/09/2016 08:26 [...] screened at [facility], [facility] CLINICAL HISTORY: LMP: 10/30/11 Post Menopausal, Previous normal pap Date of Last Pap: 10/06/14, Papanicolaou Test Limitations: ??Cervical cytology is a screening test with limited sensitivity; regular screening is critical for cancer prevention; Pap tests are primarily effective for the diagnosis/preventi on of squamous cell carcinoma, not adenocarcinomas or other cancers. TESTING LAB LOCATION: [address] ??[id number] COLLECTION SITE: Client: ??[facility] Location[facility] Cytologic material (specimen) 05/03/2016 05/05/2016 10:22 AM NEW CAR MAKE READY WORKER us Vanda Borja MD LAB - [facility] Final Result [facility] from Last 3 Months or Most Recently Relevant to Health Maintenance Insurance NONE (Work) [address] [id number] BCBS OUT OF STATE BCBS OUT OF STATE * Guarantor: Megan Wong Account Type Relation to Patient Date of Phone Billing Address Medication Therapy Self 1965 NONE (Work) [address] [place] [address] BCBS OUT OF STATE Care Teams Services Clerk Relationship Specialty Start Date End Date Sudha Greene NP [address] [address] PCP - General 11/01/22 Agatha Null DPM, Podiatry/Foot and Ankle Surgery [address] [place] [address] Assigned Musculoskeletal Provider 11/04/22
--- OUTSIDE RECORDS SUMMARY | 2024-04-03 07:12 | XMS_ITS | Encounter Summary ---
Author Organization [facility] Address [address] [place] [address] Care Team Providers Care Gelatin Maker Utility Name Role Phone Noreen Flores APRN COAL HANDLING SUPERVISOR Unavailable Noreen Flores APRN COAL HANDLING SUPERVISOR Primary Car e Provider Kalyan Galvan Unavailable Unavailable Lashae Trevino [facility] Unavailable Eduardo Sharma MD Unavailable Marcelo Artis PA-C Unavailable [phone] Rodrigo Man PA-C Unavailable [phone] Noreen Flores APRN COAL HANDLING SUPERVISOR Unavailable Sudha Greene NP Primary Care Provider Agatha Null DPM, Podiatry /Foot and Ankle Surgery Unavailable Clinic - [facility] [place] [facility] Unavailable Reason for Visit * Reason Onset Date Comments Refill Request 09/24/2020 zolpidem (AMBIEN ) 5 MG tablet Encounter Details Date Type Department Care Team (Late st Contact Info) Description 09/24/2020 Iraj Moya [facility] [place] [address] [place] [address] Noreen Flores APRN COAL HANDLING SUPERVISOR [address] [facility] [place] [address] Refill Request (zolpidem [...] Recorded PHQ-2 Score 2 07/25/2018 [facility] [place] of Occupat ional Health - Occupational Stress [...] on file Legal Sex Female 3:19 AM 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 Gender Identity Female 08/26/2020 9:05 PM CDT [...] documented as of this encounter Care Teams Gelatin Maker Utility Relationship Specialty Start Date End Date Noreen Flores APRN COAL HANDLING SUPERVISOR [address] [facility] [place] [address] PCP - General Nurse Practitioner 01/09/19 12/12/21 Sudah Greene NP [address] [address] PCP - General 11/01/22 Noreen Flores APRN COAL HANDLING SUPERVISOR [address] [place] [address] [place] [address] Assigned PCP 06/16/18 05/26/22 Kalyan Galvan Personal Advocate & Liaison (PAL) 08/08/19 04/26/21 Lashae Trevino [facility] [address] [place] [address] Pharmacist Pharmacist 10/14/19 12/01/20 Eduardo Sharma MD [address] [place] [address] [place] [address] Assigned Sleep Provider 04/02/2005/07 Marcelo Artis PA-C [address] [facility] [address] [place] [address] Assigned Musculoskeletal Provider 08/25/20 08/20/21 Rodrigo Man PA-C [address] [place] [address] [place] [address] Assigned Surgical Provider 08/25/20 11/27/20 Noreen Flores APRN COAL HANDLING SUPERVISOR [address] [place] [address] [place] [address] Assigned PCP 08/05/22 03/16/23 Agatha Null DPM, Podiatry/Foot and Ankle Surgery [address] [facility] [address] [place] [address] Assigned Musculoskeletal Provider 11/04/22 [facility] [address] [facility] [place] [address] Assigned PCP 07/05/23 12/31/23 documented as of this encounter
--- OUTSIDE RECORDS SUMMARY | 2024-04-03 07:12 | XMS_ITS | Encounter Summary ---
Author Organization [facility] Address [address] [place] [address] Care Team Providers Care Milk Bottling Machine Operator Name Role Phone Noreen Flores APRN SUPERVISOR BELT AND LINK ASSEMBLY Unavailable uSdha Greene NP Primary Care Provider Agatha Null DPM, Podiatry /Foot and Ankle Surgery Unavailable [facility] [place] Unavailable Reason for Visit * Reason Onset Date Comments Forms 02/02/2023 Encounter Details Date Type Department Care Team (Late st Contact Info) Description 02/02/2023 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 [address] [place] [address] PCP - General 11/01/22 Noreen Flores APRN SUPERVISOR BELT AND LINK ASSEMBLY [address] [facility] [place] [address] Assigned PCP 08/05/22 03/16/23 Agatha Null DPM, Podiatry/Foot and Ankle Surgery [address] [address] Assigned Musculoskeletal Provider 11/04/22 [facility] [address] [facility] [place] [id number] Assigned PCP 07/05/23 12/31/23 documented as of this encounter
--- OUTSIDE RECORDS SUMMARY | 2024-04-03 07:12 | XMS_ITS | Encounter Summary ---
Author Organization [facility] Address [address] [place] [address] Care Team Providers Care Forestry Biology Specialist Name Role Phone Noreen Flores APRN TRAILER TANK TRUCK DRIVER Unavailable Noreen Flores APRN TRAILER TANK TRUCK DRIVER Primary Car e Provider Kalyan Galvan Unavailable Unavailable Lashae Trevino [facility] Unavailable [phone] Eduardo Sharma MD Unavailable Marcelo Artis PA-C Unavailable Rodrigo ManC Unavailable [phone] Noreen Flores APRN TRAILER TANK TRUCK DRIVER Unavailable Sudha Greene NP Primary Care Provider Agatha NullM, Podiatry /Foot and Ankle Surgery Unavailable Clinic - [facility] Unavailable Encounter Details Date Type Department Care Team (Late st Contact Info) Description 10/20/2020 Myra Moya [facility] [address] [facility] [address] [place] [address] Lainey Wells Social History Tobacco Use [...] on file Legal Sex Female 3:19 AM CONE FORMER Gender Identity Female 08/26/2020 9:05 PM CDT [...] as of this encounter Care Teams Forestry Biology Specialist Relationship Specialty Start Date End Date Noreen Flores APRN TRAILER TANK TRUCK DRIVER [address] [facility] [place] [address] PCP - General Nurse Practitioner 01/09/19 12/12/21 Sudha Greene NP [address] [address] PCP - General 11/01/22 Noreen Flores APRN TRAILER TANK TRUCK DRIVER [address] [facility] [place] [address] Assigned PCP 06/16/18 05/26/22 Kalyan Galvan Personal Advocate & Liaison (PAL) 08/08/19 04/26/21 [facility] [address] [facility] [place] [address] Pharmacist Pharmacist 10/14/19 12/01/20 Eduardo Sharma MD [address] [place] [address] [place] [address] Assigned Sleep Provider 04/02/2005/07 Marcelo Artis PA-C [address] [facility] [address] [place] [address] Assigned Musculoskeletal Provider 08/25/20 08/20/21 Rodrigo Man PA-C [address] [place] [address] Assigned Surgical Provider 08/25/20 11/27/20 Noreen Flores APRN TRAILER TANK TRUCK DRIVER [address] [facility] [place] [address] Assigned PCP 08/05/22 03/16/23 Agatha Null DPM, Podiatry/Foot and Ankle Surgery [address] [place] [address] [place] [id number] Assigned Musculoskeletal Provider 11/04/22 [facility] [address] [facility] [place] [address] Assigned PCP 07/05/23 12/31/23 documented as of this encounter
--- OUTSIDE RECORDS SUMMARY | 2024-04-03 07:12 | XMS_ITS | Encounter Summary ---
Author Organization [place] [facility] Address [address] [place] [address] Care Team Providers Care Self Contained Behavior Unit Teacher Name Role Phone Noreen Flores APRN, CNP Unavailable Noreen Flores APRN BUSINESS SOLUTIONS CONSULTANT Primary Car e Provider Kalyan Galvan Unavailable Unavailable Lashae Trevino [facility] Unavailable Eduardo Sharma MD Unavailable Rios Monteiro MD Unavailable Marcelo Artis PA-C Unavailable Rodrigo Man PA-C Unavailable [phone] Noreen Flores APRN BUSINESS SOLUTIONS CONSULTANT Unavailable Sudha Greene NP Primary Care Provider Agatha Null DPM, Podiatry /Foot and Ankle Surgery Unavailable Clinic - [facility] [place] Unavailable Reason for Visit * Reason Comments Medication Refill Encounter Details Date Type Department Care Team (Late st Contact Info) Description 07/10/2020 Refill [facility] [place] [address] [facility] [place] [address] Noreen Flores APRN CNP [address] [facility] [place] [address] Medication Refill Social [...] Answer Date Recorded PHQ-2 Score 2 07/25/2018 [facility] [place] of Occupat ional Health - Occupational Stress [...] on file Legal Sex Female 3:19 AM 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 Desirae Champagne RN on 07/13/2020 at 11:11 AM STANT DISTRICT ATTORNEY * Telephone Encounter - Lainey Wells - 07/12/2020 2:22 PM CST The pt called back and she says that she takes anywhere from 8-10 a month. Lainey Wells on 07/12/2020 at 2:25 PM STANT DISTRICT ATTORNEY * Telephone Encounter - Lainey Wells - 07/12/2020 10:59 AM CST 1st attempt l/m. Lainey Wells on 07/12/2020 at 10:59 AM STANT DISTRICT ATTORNEY * Telephone Encounter - Desirae Champagne RN - 07/12/2020 10:02 AM ASSISTANT DISTRICT ATTORNEY Please call patient and see how many doses of sumatriptan patient has used in the past month. Should be using 8 doses or fewer per month. Desirae Champagne RN on 07/12/2020 at 10:07 AM STANT DISTRICT ATTORNEY documented in this encounter Plan of Treatment [...] documented as of this encounter Care Teams Self Contained Behavior Unit Teacher Relationship Specialty Start Date End Date Noreen Flores APRN BUSINESS SOLUTIONS CONSULTANT [facility] [facility] [place] [address] PCP - General Nurse Practitioner 01/09/19 12/12/21 Sudha Greene NP [address] [address] PCP - General 11/01/22 Noreen Flores APRN BUSINESS SOLUTIONS CONSULTANT [address] [place] [address] [place] [address] Assigned PCP 06/16/18 05/26/22 Kalyan Galvan Personal Advocate & Liaison (PAL) 08/08/19 04/26/21 Lashae Trevino [facility] [address] [place] [address] [place] [id number] Pharmacist Pharmacist 10/14/19 12/01/20 Eduardo Sharma MD [address] [place] [address] Assigned Sleep Provider 04/02/2005/07 [place] [address] [address] [facility] [address] [place] [address] Assigned Musculoskeletal Provider 04/02/20 08/24/20 Marcelo Artis PARejiC [address] [place] [place] [address] Assigned Musculoskeletal Provider 08/25/20 08/20/21 Rodrigo Man PA-C [address] [place] [address] Assigned Surgical Provider 08/25/20 11/27/20 Noreen Flores APRN BUSINESS SOLUTIONS CONSULTANT [address] [facility] [place] [address] Assigned PCP 08/05/22 03/16/23 Agatha Null DPM, Podiatry/Foot and Ankle Surgery [address] [place] [place] [address] Assigned Musculoskeletal Provider 11/04/22 [facility] - [facility] [place] [facility] [address] [facility] [place] [address] Assigned PCP 07/05/23 12/31/23 documented as of this encounter
--- OUTSIDE RECORDS SUMMARY | 2024-04-03 07:12 | XMS_ITS | Encounter Summary ---
Author Organization [facility] Address [address] [place] [address] Care Team Providers Care Hospice Consultant Name Role Phone Noreen Flores APRN PLANT PROTECTION OFFICER Unavailable Noreen Flores APRN PLANT PROTECTION OFFICER Primary Car e Provider Kalyan Galvan Unavailable Unavailable Eduardo Sharma MD Unavailable Marcelo Artis PA-C Unavailable Noreen Flores APRN PLANT PROTECTION OFFICER Unavailable Sudha Greene NP Primary Care Provider Agatha NullM, Podiatry /Foot and Ankle Surgery Unavailable [facility] Unavailable Reason for Visit * Reason Comments Medication Refill Encounter Details Date Type Department Care Team (Late st Contact Info) Description 01/06/2021 Refill [facility] [place] [address] [place] [address] Noreen Flores APRN PLANT PROTECTION OFFICER [address] [facility] [place] [id number] Medication Refill Social History Tobacco Use Types [...] on file Legal Sex Female 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 Gender Identity Female 08/26/2020 9:05 PM CDT [...] as of this encounter Care Teams Hospice Consultant Relationship Specialty Start Date End Date Noreen Flores APRN PLANT PROTECTION OFFICER [address] [place] [address] [place] [address] PCP - General Nurse Practitioner 01/09/19 12/12/21 Sudha Greene NP [address] [address] PCP - General 11/01/22 Noreen Flores APRN PLANT PROTECTION OFFICER [address] [place] [address] [place] [address] Assigned PCP 06/16/18 05/26/22 Kalyan Galvan Personal Advocate & Liaison (PAL) 08/08/19 04/26/21 Eduardo Sharma MD 6363 [facility] 103 [place] [address] Assigned Sleep Provider 04/02/2005/07 Marcelo Artis, PA-C [address] [place] [address] 300 [place] [address] Assigned Musculoskeletal Provider 08/25/20 08/20/21 Noreen Flores APRN PLANT PROTECTION OFFICER [address] [place] [address] [place] [address] Assigned PCP 08/05/22 03/16/23 Agatha Null DPM, Podiatry/Foot and Ankle Surgery [address] [place] [address] Assigned Musculoskeletal Provider 11/04/22 [facility] 5[address] [facility] [place] [address] Assigned PCP 07/05/23 12/31/23 documented as of this encounter
--- OUTSIDE RECORDS SUMMARY | 2024-04-03 07:12 | XMS_ITS | Encounter Summary ---
Author Organization [place] Address [address] [place] [address] Care Team Providers Care Social Media Designer Name Role Phone Noreen Flores APRN SOCCER COACH Unavailable Noreen Flores APRN SOCCER COACH Primary Car e Provider Kalyan Galvan Unavailable Unavailable Lashae Trevino [facility] Unavailable Eduardo Sharma MD Unavailable Marcelo Artis PA-C Unavailable Rodrigo Man PA-C Unavailable [phone] Noreen Flores APRN SOCCER COACH Unavailable Sudha Greene NP Primary Care Provider Agatha Null DPM, Podiatry /Foot and Ankle Surgery Unavailable [facility] Unavailable Reason for Visit * Reason Onset Date Comments Refill Request 10/05/2020 topiramate (TOPA MAX) 100 MG tablet Encounter Details Date Type Department Care Team (Late st Contact Info) Description 10/05/2020 Refill [facility] [place] [address] [place] [address] Noreen Flores APRN SOCCER COACH 3305 [facility] [place] [address] Refill Request (topiramate [...] Answer Date Recorded PHQ-2 Score 2 07/25/2018 [facility] [place] of Occupat ional Health - Occupational Stress [...] on file 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 [place] [phone] Pharmacist Pharmacist 10/14/19 12/01/20 Eduardo Sharma MD [address] [place] [address] [place] 647815 Assigned Sleep Provider 04/02/2005/07 Marcelo Artis PA-C [address] [place] [address] 300 [place] 179717 Assigned Musculoskeletal Provider 08/25/20 08/20/21 Rodrigo Man PA-C [address] [place] 450 [place] 597035 Assigned Surgical Provider 08/25/20 11/27/20 Noreen Flores APRN SOCCER COACH [address] [place] [address] [place] [address] Assigned PCP 08/05/22 03/16/23 Agatha Null DPM, Podiatry/Foot and Ankle Surgery [address] [place] [address] [email or web address] 300 [place], [place] 380067 Assigned Musculoskeletal Provider 11/04/22 [facility] [place] 12[address] [facility] [place] [id number] Assigned PCP 07/05/23 12/31/23 documented as of this encounter
--- OUTSIDE RECORDS SUMMARY | 2024-04-03 07:12 | XMS_ITS | Encounter Summary ---
Author Organization [place] Address [address] [place] [address] Care Team Providers Care Physician [facility] Name Role Phone Noreen Flores APRN EMERGENCY DETAIL DRIVER Unavailable Noreen Flores APRN EMERGENCY DETAIL DRIVER Primary Car e Provider Kalyan Galvan Unavailable Unavailable Eduardo Sharma MD Unavailable Marcelo Artis PA-C Unavailable [phone] Noreen Flores APRN EMERGENCY DETAIL DRIVER Unavailable Sudha Greene NP Primary Care Provider Agatha NullM, Podiatry /Foot and Ankle Surgery Unavailable [facility] Unavailable Encounter Details Date Type Department Care Team (Late st Contact Info) Description 02/28/2021 MyC Medical Advice [facility] 3[address] [facility] [address] [place] [id number] Lainey Wells Social History Tobacco Use Types [...] Answer Date Recorded PHQ-2 Score 0 11/10/2020 [facility] of Occupat ional Health - [...] on file 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 Gender Identity Female 08/26/2020 9:05 PM CDT [...] as of this encounter Care Teams Physician [facility] Relationship Specialty Start Date End Date Noreen Flores APRN EMERGENCY DETAIL DRIVER [facility] [place] [address] PCP - General Nurse Practitioner 01/09/19 12/12/21 Sudha Greene, MAURICIO [address] [address] PCP - General 11/01/22 Noreen Flores APRN EMERGENCY DETAIL DRIVER [address] [place] [address] [place] [address] Assigned PCP 06/16/18 05/26/22 Kalyan Galvan Personal Advocate & Liaison (PAL) 08/08/19 04/26/21 Eduardo Sharma MD [address] [place] [address] Assigned Sleep Provider 04/02/2005/07 Marcelo Artis PARejiC [address] [facility] 300 [place] [address] Assigned Musculoskeletal Provider 08/25/20 08/20/21 Noreen Flores APRN EMERGENCY DETAIL DRIVER [address] [place] [address] [place] [address] Assigned PCP 08/05/22 03/16/23 Agatha Null DPM, Podiatry/Foot and Ankle Surgery [address] [facility] 300 [place] [address] Assigned Musculoskeletal Provider 11/04/22 [facility] [place] [address] [address] Assigned PCP 07/05/23 12/31/23 documented as of this encounter
--- OUTSIDE RECORDS SUMMARY | 2024-04-03 07:12 | XMS_ITS | Encounter Summary ---
Author Organization [place] Address [address] [place] [address] Care Team Providers Care Deboning Team Leader Name Role Phone Noreen Flores APRN ENTREPRENEURSHIP PROGRAM DIRECTOR Unavailable Noreen Flores APRN ENTREPRENEURSHIP PROGRAM DIRECTOR Primary Car e Provider Kalyan Galvan Unavailable Unavailable Lashae Trevino [facility] Unavailable Eduardo Sharma MD Unavailable Rios Monteiro MD Unavailable Marcelo Artis PA-C Unavailable Rodrigo ManC Unavailable [phone] Noreen Flores APRN ENTREPRENEURSHIP PROGRAM DIRECTOR Unavailable Sudha Greene NP Primary Care Provider Agatha Null DPM, Podiatry /Foot and Ankle Surgery Unavailable [facility] Unavailable Encounter Details Date Type Department Care Team (Late st Contact Info) Description 08/02/2020 Myra M[facility] 3[address] [facility] [address] [place] [address] Lainey Wells Social History Tobacco [...] Date Recorded PHQ-2 Score 2 07/25/2018 [facility] [place] of Occupat ional Health - Occupational [...] on file 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 No / Unsure 07/17/2020 1:32 PM PUBLICITY MANAGER documented as of this encounter Plan of [...] documented as of this encounter Care Teams Deboning Team Leader Relationship Specialty Start Date End Date Noreen Flores APRN ENTREPRENEURSHIP PROGRAM DIRECTOR [address] [place] [address] [place] [address] PCP - General Nurse Practitioner 01/09/19 12/12/21 Sudha Greene, MAURICIO [address] [address] PCP - General 11/01/22 Noreen Flores APRN ENTREPRENEURSHIP PROGRAM DIRECTOR [address] [place] [address] [place] [address] Assigned PCP 06/16/18 05/26/22 Kalyan Galvan Personal Advocate & Liaison (PAL) 08/08/19 04/26/21 Lashae Trevino, [facility] [address] [place] [address] Pharmacist Pharmacist 10/14/19 12/01/20 Eduardo Sharma MD 6363 [place] [address] Assigned Sleep Provider 04/02/2005/07 [place] [address] [facility] 300 [place] [address] Assigned Musculoskeletal Provider 04/02/20 08/24/20 Marcelo Artis PA-Aleyda [address] [facility] 300 [place] [address] Assigned Musculoskeletal Provider 08/25/20 08/20/21 Rodrigo Man PA-C [address] 178585 Assigned Surgical Provider 08/25/20 11/27/20 Noreen Flores APRN ENTREPRENEURSHIP PROGRAM DIRECTOR 3305 [facility] [place] [address] Assigned PCP 08/05/22 03/16/23 Agatha Null DPM, Podiatry/Foot and Ankle Surgery [address] [facility] 300 [place] [address] Assigned Musculoskeletal Provider 11/04/22 [facility] 3305 [facility] [place] [id number] Assigned PCP 07/05/23 12/31/23 documented as of this encounter
--- OUTSIDE RECORDS SUMMARY | 2024-04-03 07:12 | XMS_ITS | Encounter Summary ---
Author Organization [place] Address [address] [place] [address] Care Team Providers Care Cash Applications Analyst Name Role Phone Noreen Flores SAW BOSS NEWS AGENT Unavailable Sudha Greene NP Primary Care Provider Agatha Null DPM, Podiatry /Foot and Ankle Surgery Unavailable [facility] Unavailable Encounter Details Date Type Department Care Team (Late st Contact Info) Description 01/04/2023 MyC Medical Advice [facility] [address] [place] [address] Tony Orozco Social History Tobacco [...] Answer Date Recorded PHQ-2 Score 0 11/10/2020 [facility] of Occupat ional Health - [...] on file 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 Gender Identity Female 08/26/2020 9:05 PM CDT [...] of this encounter Care Teams Cash Applications Analyst Relationship Specialty Start Date End Date Sudha Greene NP [address] [address] PCP - General 11/01/22 Noreen Flores APRN NEWS AGENT 3305 [facility] [place] [address] Assigned PCP 08/05/22 03/16/23 Agatha Null DPM, Podiatry/Foot and Ankle Surgery [address] [place] [id number] Assigned Musculoskeletal Provider 11/04/22 [facility] 3[address] [facility] [place] [phone] Assigned PCP 07/05/23 12/31/23 documented as of this encounter
--- OUTSIDE RECORDS SUMMARY | 2024-04-03 07:12 | XMS_ITS | Encounter Summary ---
Author Organization [facility] Address [address] [place] [address] Care Team Providers Care Plug Assembler Name Role Phone Noreen Flores APRN AUTO HIKER Unavailable Noreen Flores APRN AUTO HIKER Primary Car e Provider Kalyan Galvan Unavailable Unavailable Lashae Trevino [facility] Unavailable [phone] Eduardo Sharma MD Unavailable Marcelo Artis PA-C Unavailable Rodrigo Man PA-C Unavailable [phone] Noreen Flores APRN AUTO HIKER Unavailable Sudha Greene NP Primary Care Provider Agatha NullM, Podiatry /Foot and Ankle Surgery Unavailable [facility] Unavailable Encounter Details Date Type [...] Answer Date Recorded PHQ-2 Score 2 07/25/2018 [facility] [place] of Occupat ional Health - Occupational Stress [...] on file 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 Gender Identity Female 08/26/2020 9:05 PM [...] documented as of this encounter Care Teams Plug Assembler Relationship Specialty Start Date End Date Noreen Flores APRN AUTO HIKER 3305 [facility] [place] [address] PCP - General Nurse Practitioner 01/09/19 12/12/21 Sudha Greene NP [address] [address] PCP - General 11/01/22 Noreen Flores APRN AUTO HIKER [address] [place] [address] [place] [address] Assigned PCP 06/16/18 05/26/22 Kalyan Galvan Personal Advocate & Liaison (PAL) 08/08/19 04/26/21 Lashae Trevino [facility] 1440 [facility] [place] [address] Pharmacist Pharmacist 10/14/19 12/01/20 Eduardo Sharma MD [address] [place] [address] [place] [address] Assigned Sleep Provider 04/02/2005/07 Marcelo Artis PA-C [address] [facility] [place] 300 [place] [address] Assigned Musculoskeletal Provider 08/25/20 08/20/21 Rodrigo Man PA-C [address] [place] [address] [place] [address] Assigned Surgical Provider 08/25/20 11/27/20 Noreen Flores APRN AUTO HIKER 3305 [facility] [place] [address] Assigned PCP 08/05/22 03/16/23 Agatha Null DPM, Podiatry/Foot and Ankle Surgery [address] [place] [address] Assigned Musculoskeletal Provider 11/04/22 [facility] 3305 [facility] [place] [id number] Assigned PCP 07/05/23 12/31/23 documented as of this encounter
--- OUTSIDE RECORDS SUMMARY | 2024-04-03 07:12 | XMS_ITS | Encounter Summary ---
Author Organization [place] Address [address] [place] [address] Care Team Providers Care Home Health Lvn Name Role Phone Noreen Flores APRN DEMI CHEF Unavailable Noreen Flores APRN DEMI CHEF Primary Car e Provider Kalyan Galvan Unavailable Unavailable Lashae Trevino [facility] Unavailable [phone] Eduardo Sharma MD Unavailable Marcelo Artis PA-C Unavailable [phone] Rodrigo Man PA-C Unavailable [phone] Noreen Flores APRN DEMI CHEF Unavailable Sudha Greene NP Primary Care Provider Agatha NullM, Podiatry /Foot and Ankle Surgery Unavailable 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 Gender Identity Female 08/26/2020 9:05 PM CDT [...] of this encounter Care Teams Home Health Lvn Relationship Specialty Start Date End Date Noreen Flores APRN DEMI CHEF [address] [place] [address] [place] [address] PCP - General Nurse Practitioner 01/09/19 12/12/21 Sudha Greene, MAURICIO [address] [address] PCP - General 11/01/22 Noreen Flores APRN DEMI CHEF [address] [place] [address] [place] [address] Assigned PCP 06/16/18 05/26/22 Kalyan Galvan Personal Advocate & Liaison (PAL) 08/08/19 04/26/21 Lashae Trevino, [facility] 1440 [facility] [place] [address] Pharmacist Pharmacist 10/14/19 12/01/20 Eduardo Sharma MD [address] [facility] 103 [place] [address] Assigned Sleep Provider 04/02/2005/07 Marcelo Artis, PA-C [address] [facility] 300 [place] [address] Assigned Musculoskeletal Provider 08/25/20 08/20/21 Rodrigo Man PA-C [address] [place] [address] Assigned Surgical Provider 08/25/20 11/27/20 Noreen Flores APRN DEMI CHEF 3305 [facility] [place] [address] Assigned PCP 08/05/22 03/16/23 Agatha Null DPM, Podiatry/Foot and Ankle Surgery [address] [place] [address] [place] [address] Assigned Musculoskeletal Provider 11/04/22 [facility] [address] [facility] [place] [address] Assigned PCP 07/05/23 12/31/23 documented as of this encounter
--- OUTSIDE RECORDS SUMMARY | 2024-04-03 07:12 | XMS_ITS | Encounter Summary ---
Author Organization [place] Address [address] [place] [address] Care Team Providers Care Computer Operations Technician Name Role Phone Noreen Flores APRN MATTRESS FILLER Unavailable Noreen Flores APRN MATTRESS FILLER Primary Car e Provider Marcelo Artis PA-C Unavailable [phone] Noreen Flores APRN MATTRESS FILLER Unavailable Sudha Greene NP Primary Care Provider Agatha Null DPM, Podiatry /Foot and Ankle Surgery Unavailable [facility] Unavailable Encounter Details Date Type Department Care Team (Late st Contact Info) Description 07/25/[address] 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 Gender Identity Female 08/26/2020 9:05 PM CDT [...] as of this encounter Care Teams Computer Operations Technician Relationship Specialty Start Date End Date Noreen Flores APRN MATTRESS FILLER [address] [place] [address] [place] [address] PCP - General Nurse Practitioner 01/09/19 12/12/21 Sudha Greene NP [facility] - [address] [address] PCP - General 11/01/22 Noreen Flores APRN MATTRESS FILLER [address] [place] [address] [place] [address] Assigned PCP 06/16/18 05/26/22 Marcelo Artis PA-C [address] [place] [address] [place] [address] Assigned Musculoskeletal Provider 08/25/20 08/20/21 Noreen Flores APRN MATTRESS FILLER [address] [place] [address] [place] [address] Assigned PCP 08/05/22 03/16/23 Agatha Null DPM, Podiatry/Foot and Ankle Surgery [address] [place] [address] [facility] 300 [place] [address] Assigned Musculoskeletal Provider 11/04/22 [facility] [place] [address] [place] [address] Assigned PCP 07/05/23 12/31/23 documented as of this encounter
--- OUTSIDE RECORDS SUMMARY | 2024-04-03 07:13 | XMS_ITS | Encounter Summary ---
Author Organization [place] Address [address] [place] [address] Care Team Providers Care Senior Integration Developer Name Role Phone Noreen Flores APRN CLOTH CHECKER Unavailable Noreen Flores APRN CLOTH CHECKER Primary Car e Provider Kalyan Galvan Unavailable Unavailable Lashae Trevino [facility] Unavailable [phone] Eduardo Sharma MD Unavailable Rios Monteiro MD Unavailable Marcelo Artis PA-C Unavailable Rodrigo Man PA-C Unavailable [phone] Noreen Flores APRN, CNP Unavailable Sudha Greene NP Primary Care Provider Agatha Null DPM, Podiatry /Foot and Ankle Surgery Unavailable [facility] Unavailable Reason for Visit * Reason Onset Date Comments Refill Request 06/14/2020 blood glucose mo nitoring (ONE TOUCH DELICA) lancets Refill Request 06/14/2020 blood glucose (A CCU-CHEK JANICE) test strip Encounter Details Date Type Department Care Team (Late st Contact Info) Description 06/14/[address] [facility] [address] [facility] [address] [place] [address] Jeana-Noreen Miles, TUBE KNITTER CLOTH CHECKER 3305 [facility] [place] [address] Refill Request (blood glucose monitoring (ONE TOUCH [...] Answer Date Recorded PHQ-2 Score 2 07/25/2018 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 Christy Pelayo RN Flex UNICATIONS DEPARTMENT HEAD * Telephone Encounter - Candy Wilda - 06/14/2020 3:55 PM CST Request from pharmacy states: ONE TOUCH VERIO TEST STRIPS and ONE TOUCH 30G DELICA LNC, UNICATIONS DEPARTMENT HEAD documented in this encounter Plan of [...] as of this encounter Care Teams Senior Integration Developer Relationship Specialty Start Date End Date Jeana-Noreen Miles APRN CNP 3305 [facility] [place] [address] PCP - General Nurse Practitioner 01/09/19 12/12/21 Sudha Greene NP [address] [address] PCP - General 11/01/22 Noreen Flores APRN CLOTH CHECKER [address] [place] [address] [place] [address] Assigned PCP 06/16/18 05/26/22 Kalyan Galvan Personal Advocate & Liaison (PAL) 08/08/19 04/26/21 Lashae Trevino, [facility] [address] [place] [address] [place] [phone] Pharmacist Pharmacist 10/14/19 12/01/20 Eduardo Sharma MD [address] [place] [address] [place] [id number] Assigned Sleep Provider 04/02/2005/07 [place] [address] [facility] 300 [place] [address] Assigned Musculoskeletal Provider 04/02/20 08/24/20 Marcelo Artis PA-C [address] [facility] 300 [place] [address] Assigned Musculoskeletal Provider 08/25/20 08/20/21 Rodrigo Man PA-C [address] [place] [address] [place] [address] Assigned Surgical Provider 08/25/20 11/27/20 Noreen Flores APRN CLOTH CHECKER 0800 [facility] [place] [address] Assigned PCP 08/05/22 03/16/23 Agatha Null DPM, Podiatry/Foot and Ankle Surgery [address] [place] [address] Assigned Musculoskeletal Provider 11/04/22 [facility] - [facility] [place] 8049 [facility] [place] [address] Assigned PCP 07/05/23 12/31/23 documented as of this encounter
--- OUTSIDE RECORDS SUMMARY | 2024-04-03 07:13 | XMS_ITS | Encounter Summary ---
Author Organization [place] Address [address] [place] [address] Care Team Providers Care Court Advocate Name Role Phone Vanda Guerrero MD Primary Care Provider [phone] Vanda Guerrero MD Unavailable [phone] Jeana-JdNoreen castro APRN LEAD CASHIER Unavailable [facility]-Noreen Miles APRN LEAD CASHIER Unavailable [facility]-JdNoreen castro UTILITY LINEMAN LEAD CASHIER Primary Car e Provider Kalyan Galvan Unavailable Unavailable Lashae Trevino [facility] Unavailable Eduardo Sharma MD Unavailable Rios Monteiro MD Unavailable Marcelo Artis PA-C Unavailable Rodrigo ManC Unavailable Jeana-Noreen Miles APRN LEAD CASHIER Unavailable Sudha Greene NP Primary Care Provider Agatha Null DPM, Podiatry /Foot and Ankle Surgery Unavailable [facility] - [facility] Unavailable Reason for Visit * Reason Onset Date Comments Refill Request 03/04/2018 loratadine-pseud oePHEDrine ([facility] ALLERGY RELIEF-D) 10- 240 MG per 24 hr tablet Encounter Details Date Type Department Care Team (Late st Contact Info) Description 03/04/2018 Refill [facility] [place] [address] [place] [address] Vanda Guerrero MD [address] 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 [place] [address] PCP - General Internal Medicine 04/08/15 01/08/19 Vanda Guerrero MD [facility] [facility] [place] [address] PCP - Assigned PCP 07/24/16 06/15/18 Noreen Flores APRN LEAD CASHIER [facility] [facility] [place] [address] PCP - Assigned PCP 06/16/18 08/13/18 Noreen Flores APRN LEAD CASHIER [address] [place] [address] [place] [address] PCP - General Nurse Practitioner 01/09/19 12/12/21 Sudha Greene NP [address] [address] PCP - General 11/01/22 Noreen Flores APRN LEAD CASHIER [address] [place] [address] [place] [address] Assigned PCP 06/16/18 05/26/22 Kalyan Galvan Personal Advocate & Liaison (PAL) 08/08/19 04/26/21 Lashae Trevino, [facility] [address] [place] [address] [place] [phone] Pharmacist Pharmacist 10/14/19 12/01/20 Eduardo Sharma MD [address] [place] [address] [place] [address] Assigned Sleep Provider 04/02/2005/07 [place] [address] [facility] [address] [place] [address] Assigned Musculoskeletal Provider 04/02/20 08/24/20 Marcelo Artis PA-C [address] [facility] [address] [place] [address] Assigned Musculoskeletal Provider 08/25/20 08/20/21 Rodrigo Man PA-C [address] [place] [address] [place] [address] Assigned Surgical Provider 08/25/20 11/27/20 Noreen Flores APRN LEAD CASHIER [address] [facility] [place] [address] Assigned PCP 08/05/22 03/16/23 Agatha Null DPM, Podiatry/Foot and Ankle Surgery [address] [place] [address] Assigned Musculoskeletal Provider 11/04/22 [facility] [address] [facility] [place] [address] Assigned PCP 07/05/23 12/31/23 documented as of this encounter
--- OUTSIDE RECORDS SUMMARY | 2024-04-03 07:13 | XMS_ITS | Encounter Summary ---
Author Organization [place] Address [address] [place] [address] Care Team Providers Care Rate Marker Name Role Phone Vanda Guerrero MD Primary Care Provider [phone] Noreen Flores APRN SHIPPING CHECKER Unavailable Noreen Flores APRN SHIPPING CHECKER Primary Car e Provider Kalyan Galvan Unavailable Unavailable Lashae Trevino [facility] Unavailable Eduardo Sharma MD Unavailable Rios Monteiro MD Unavailable Marcelo Artis PA-C Unavailable Rodrigo Man PA-C Unavailable [phone] Noreen Flores APRN SHIPPING CHECKER Unavailable Sudha Greene NP Primary Care Provider Agatha Null DPM, Podiatry /Foot and Ankle Surgery Unavailable [facility] - [facility] Unavailable Encounter Details Date Type Department Care Team (Late st Contact Info) Description 12/05/2018 Myra M[facility] [place] [address] [place] [address] Noreen Flores APRN SHIPPING CHECKER [address] [facility] [place] [address] Social History Tobacco Use Types Packs/Day Years Used Date Smoking Tobacco: Never Smokeless Tobacco: Never Alcohol Use Standard Drinks/Week Comments Yes 0 (1 standard drink = 0.6 oz pur e alcohol) Rare PHQ-2 Answer Date Recorded PHQ-2 Score 2 07/25/2018 Comments No Sex and Gender Information Value Date Recorded Sex Assigned at Not on file Legal Sex Female 3:19 AM SUPERVISOR LENDING ACTIVITIES Gender Identity Female 08/26/2020 9:05 PM CDT [...] Depression Total Score: 7 06/25/19 9:49 AM SUPERVISOR LENDING ACTIVITIES documented as of this encounter Care Teams Rate Marker Relationship Specialty Start Date End Date Vanda Guerrero MD [address] [place] [address] [place] [address] PCP - General Internal Medicine 04/08/15 01/08/19 Noreen Flores APRN SHIPPING CHECKER [address] [place] [address] [place] [address] PCP - General Nurse Practitioner 01/09/19 12/12/21 Sudha Greene NP [address] [address] PCP - General 11/01/22 Noreen Flores APRN SHIPPING CHECKER [address] [place] [address] [place] [address] Assigned PCP 06/16/18 05/26/22 Kalyan Galvan Personal Advocate & Liaison (PAL) 08/08/19 04/26/21 Lashae Trevino, [facility] [address] [facility] [place] [phone] Pharmacist Pharmacist 10/14/19 12/01/20 Eduardo Sharma MD [address] [place] [address] [place], [place] [address] Assigned Sleep Provider 04/02/2005/07 [place] [address] [facility] 300 [place] [address] Assigned Musculoskeletal Provider 04/02/20 08/24/20 Marcelo Artis PA-C [address] [facility] 300 [place] [address] Assigned Musculoskeletal Provider 08/25/20 08/20/21 Rodrigo Man PA-C [address] [place] [address] [place] [address] Assigned Surgical Provider 08/25/20 11/27/20 Noreen Flores APRN SHIPPING CHECKER [address] [facility] [place] [address] Assigned PCP 08/05/22 03/16/23 Agatha Null, JOAOM, Podiatry/Foot and Ankle Surgery [address] [facility] 300 [place] [address] Assigned Musculoskeletal Provider 11/04/22 [facility] [address] [place] [address] Assigned PCP 07/05/23 12/31/23 documented as of this encounter
--- OUTSIDE RECORDS SUMMARY | 2024-04-03 07:13 | XMS_ITS | Encounter Summary ---
Author Organization [place] Address [address] [place] [address] Care Team Providers Care Tool Crib Manager Name Role Phone Vanda Guerrero MD Primary Care Provider [phone] Vanda Guerrero MD Unavailable [phone] Jeana-Noreen Miles APRN MEDICAL ASSISTANT OB GYN Unavailable Jeana-Noreen Miles APRN MEDICAL ASSISTANT OB GYN Unavailable Jeana-Noreen Miles CONSUMER EDUCATION SPECIALIST MEDICAL ASSISTANT OB GYN Primary Car e Provider Kalyan Galvan Unavailable Unavailable Lashae Trevino [facility] Unavailable Eduardo Sharma MD Unavailable Rios Monteiro MD Unavailable [phone] Marcelo Artis PA-C Unavailable Rodrigo ManC Unavailable Jeana-Noreen Miles APRN MEDICAL ASSISTANT OB GYN Unavailable Sudha Greene NP Primary Care Provider Agatha Null DPM, Podiatry /Foot and Ankle Surgery Unavailable [facility] Unavailable Encounter Details Date Type Department Care Team (Late st Contact Info) Description 02/17/2018 [facility] Lucy Moya [facility] [address] [phone] Liya Gonzalez RN Social History Tobacco Use Types Packs/Day Years Used Date Smoking Tobacco: Never Smokeless Tobacco: Never Alcohol Use Standard Drinks/Week Comments Yes 0 (1 standard drink = 0.6 oz pur e alcohol) Rare Comments No Sex and Gender Information Value Date Recorded Sex Assigned at Not on file Legal Sex Female 3:19 AM TREE CARE FOREMAN Gender Identity Female 08/26/2020 9:05 PM CDT [...] Date End Date Vanda Guerrero MD [address] [place] [address] [place] [address] PCP - General Internal Medicine 04/08/15 01/08/19 Vanda Guerrero MD [address] [place] [address] [place] [address] PCP - Assigned PCP 07/24/16 06/15/18 Noreen Flores APRN MEDICAL ASSISTANT OB GYN [address] [place] [address] [place] [address] PCP - Assigned PCP 06/16/18 08/13/18 Noreen Flores APRN MEDICAL ASSISTANT OB GYN [address] [facility] [place] [address] PCP - General Nurse Practitioner 01/09/19 12/12/21 Sudha Greene, [place] [address] [address] PCP - General 11/01/22 Noreen Flores APRN MEDICAL ASSISTANT OB GYN [address] [place] [address] [place] [address] Assigned PCP 06/16/18 05/26/22 Kalyan Galvan Personal Advocate & Liaison (PAL) 08/08/19 04/26/21 Lashae Trevino, [facility] [address] [place] [address] [place] [address] Pharmacist Pharmacist 10/14/19 12/01/20 Eduardo Sharma MD [address] [place] [place] [id number] Assigned Sleep Provider 04/02/2005/07 [place] [address] [facility] [address] [place] [address] Assigned Musculoskeletal Provider 04/02/20 08/24/20 Marcelo Artis PA-C [address] [facility] [address] [place], [place] [address] Assigned Musculoskeletal Provider 08/25/20 08/20/21 Rodrigo Man PA-C [address] [place] [address] [place] [id number] Assigned Surgical Provider 08/25/20 11/27/20 Noreen Flores APRN MEDICAL ASSISTANT OB GYN [address] [facility] [place] [address] Assigned PCP 08/05/22 03/16/23 Agatha Null DPM, Podiatry/Foot and Ankle Surgery [address] [place] [address] Assigned Musculoskeletal Provider 11/04/22 [facility] [address] [facility] [place] [id number] Assigned PCP 07/05/23 12/31/23 documented as of this encounter
--- OUTSIDE RECORDS SUMMARY | 2024-04-03 07:13 | XMS_ITS | Encounter Summary ---
Author Organization [place] Address [address] [place] [address] Care Team Providers Care Systems Development Manager Name Role Phone Vanda Guererro MD Primary Care Provider [phone] Vanda Guerrero MD Unavailable [phone] Jeana-Noreen Miles APRN COATING MACHINE OPERATOR HELPER Unavailable Jeana-Noreen Miles APRN COATING MACHINE OPERATOR HELPER Unavailable Jeana-Noreen Miles MEDICAID BILLING CLERK COATING MACHINE OPERATOR HELPER Primary Car e Provider Kalyan Galvan Unavailable Unavailable Lashae Trevino [facility] Unavailable [phone] Eduardo Sharma MD Unavailable Rios Monteiro MD Unavailable Marcelo Artis PA-C Unavailable [phone] Rodrigo ManC Unavailable Jeana-Noreen Miles APRN COATING MACHINE OPERATOR HELPER Unavailable Sudha Greene NP Primary Care Provider Agatha Null DPM, Podiatry /Foot and Ankle Surgery Unavailable [facility] Unavailable Encounter Details Date Type Department Care Team (Late st Contact Info) Description 03/21/2017 [facility] Lucy [facility] [place] 3[address] [facility] [address] [place] [address] Dusty Oneil [facility] Social History Tobacco Use Types Packs/Day Years Used Date Smoking Tobacco: Never Smokeless Tobacco: Never Alcohol Use Standard Drinks/Week Comments Yes 0 (1 standard drink = 0.6 oz pur e alcohol) Rare Comments No Sex and Gender Information Value Date Recorded Sex Assigned at Not on file Legal Sex Female 3:19 AM SEMICONDUCTOR DIES LOADER Gender Identity Female 08/26/2020 9:05 PM CDT [...] as of this encounter Care Teams Systems Development Manager Relationship Specialty Start Date End Date Vanda Guerrero MD [address] [place] [address] [place] [address] PCP - General Internal Medicine 04/08/15 01/08/19 Vanda Guerrero MD [address] [place] [address] [place] [address] PCP - Assigned PCP 07/24/16 06/15/18 Noreen Flores APRN COATING MACHINE OPERATOR HELPER [address] [place] [address] [place] [address] PCP - Assigned PCP 06/16/18 08/13/18 Noreen Flores APRN COATING MACHINE OPERATOR HELPER [address] [place] [address] [place] [address] PCP - General Nurse Practitioner 01/09/19 12/12/21 Sudha Greene NP [address] [address] PCP - General 11/01/22 Noreen Flores APRN COATING MACHINE OPERATOR HELPER [address] [facility] [place] [address] Assigned PCP 06/16/18 05/26/22 Kalyan Galvan Personal Advocate & Liaison (PAL) 08/08/19 04/26/21 Lashae Trevino, [facility] [address] [facility] [place] [address] Pharmacist Pharmacist 10/14/19 12/01/20 Eduardo Sharma MD [address] [place] [address] [place] [id number] Assigned Sleep Provider 04/02/2005/07 [place] [address] [facility] [address] [place] [address] Assigned Musculoskeletal Provider 04/02/20 08/24/20 Marcelo Artis PA-C [address] [place] [address] [place] [address] Assigned Musculoskeletal Provider 08/25/20 08/20/21 Rodrigo Man PA-C [address] [place] [address] [place] [address] Assigned Surgical Provider 08/25/20 11/27/20 Noreen Flores APRN COATING MACHINE OPERATOR HELPER [address] [facility] [place] [address] Assigned PCP 08/05/22 03/16/23 Agatha Null DPM, Podiatry/Foot and Ankle Surgery [address] [place] [address] Assigned Musculoskeletal Provider 11/04/22 [facility] 3[address] [facility] [place] [id number] Assigned PCP 07/05/23 12/31/23 documented as of this encounter
--- OUTSIDE RECORDS SUMMARY | 2024-04-03 07:13 | XMS_ITS | Encounter Summary ---
Author Organization [place] Address [address] [place] [address] Care Team Providers Care Medical Records Custodian Name Role Phone Noreen Flores APRN CAFE SITE ATTENDANT Unavailable Noreen Flores APRN CAFE SITE ATTENDANT Primary Car e Provider Kalyan Galvan Unavailable Unavailable Lashae Trevino [facility] Unavailable Eduardo Sharma MD Unavailable Rios Monteiro MD Unavailable Marcelo Artis PA-C Unavailable Rodrigo Man PA-C Unavailable [phone] Noreen Flores APRN CAFE SITE ATTENDANT Unavailable Sudha Greene NP Primary Care Provider Agatha Null DPM, Podiatry /Foot and Ankle Surgery Unavailable [facility] - [facility] Unavailable Encounter Details Date Type Department Care Team (Late st Contact Info) Description 01/22/2019 Myra Moya [facility] [place] [address] [facility] [address] [place] [address] Marcelo Trejo, PT [address] [place] [address] Social History Tobacco Use Types Packs/Day Years Used Date Smoking Tobacco: Never Smokeless Tobacco: Never Alcohol Use Standard Drinks/Week Comments Yes 0 (1 standard drink = 0.6 oz pur e alcohol) Rare PHQ-2 Answer Date Recorded PHQ-2 Score 2 07/25/2018 Comments No Sex and Gender Information Value Date Recorded Sex Assigned at Not on file Legal Sex Female 3:19 AM MOTION PICTURE PROJECTIONIST Gender Identity Female 08/26/2020 9:05 PM CDT [...] as of this encounter Care Teams Medical Records Custodian Relationship Specialty Start Date End Date Noreen Flores APRN CAFE SITE ATTENDANT [address] [place] [address] [place] [address] PCP - General Nurse Practitioner 01/09/19 12/12/21 Sudha Greene NP [address] [address] PCP - General 11/01/22 Noreen Flores APRN CAFE SITE ATTENDANT [address] [place] [address] [place] [address] Assigned PCP 06/16/18 05/26/22 Kalyan Galvan Personal Advocate & Liaison (PAL) 08/08/19 04/26/21 Lashae Trevino [facility] [address] [place], [place] [address]OD [place] [address] Pharmacist Pharmacist 10/14/19 12/01/20 Eduardo Sharma MD [address] [place] [address] Assigned Sleep Provider 04/02/2005/07 Rios Monteiro MD [address] [place] [address] 300 [place] [address] Assigned Musculoskeletal Provider 04/02/20 08/24/20 Marcelo Artis PA-C [address] [place] [address] 300 [place] [address] Assigned Musculoskeletal Provider 08/25/20 08/20/21 Rodrigo Man PA-C [address] [place] [address] [place] [address] Assigned Surgical Provider 08/25/20 11/27/20 Noreen Flores APRN CAFE SITE ATTENDANT [address] [place] [address] [place] [address] Assigned PCP 08/05/22 03/16/23 Agatha Null DPM, Podiatry/Foot and Ankle Surgery [address] [place] [address] [facility] 300 [place] [address] Assigned Musculoskeletal Provider 11/04/22 [facility] - [facility] [place] 3[address] [facility] [place] [address] Assigned PCP 07/05/23 12/31/23 documented as of this encounter
--- OUTSIDE RECORDS SUMMARY | 2024-04-03 07:13 | XMS_ITS | Encounter Summary ---
Author Organization [place] Address [address] [place] [address] Care Team Providers Care Auto Body Repair Technician Name Role Phone Noreen Flores APRN LAST MARKER Unavailable Noreen Flores APRN LAST MARKER Primary Car e Provider Kalyan Galvna Unavailable Unavailable Lashae Trevino [facility] Unavailable Eduardo Sharma MD Unavailable Rios Monteiro MD Unavailable [phone] Marcelo Artis PA-C Unavailable Rodrigo Man PA-C Unavailable [phone] Noreen Flores APRN LAST MARKER Unavailable Sudha Greene NP Primary Care Provider Agatha Null DPM, Podiatry /Foot and Ankle Surgery Unavailable [facility] Unavailable Encounter Details Date Type Department Care Team (Late st Contact Info) Description 10/06/2019 [facility] Lucy M[facility] [address] [address] Patricia Bonilla Social History Tobacco [...] Friends and Family Patient declined 08/08/2019 Attends Gnosticist Services Patient declined 07/13 Active Member of [...] PHQ-2 Score 2 07/25/2018 [facility] [place] of Occupat ional Health - Occupational Stress [...] on file Legal Sex Female 3:19 AM CLOTHING CUTTER Gender Identity Female 08/26/2020 9:05 PM CDT [...] Total Score: 9 08/09/19 20 7:03 AM CLOTHING CUTTER documented as of this encounter Care Teams Auto Body Repair Technician Relationship Specialty Start Date End Date Noreen Flores APRN LAST MARKER [address] [place] [address] [place] [address] PCP - General Nurse Practitioner 01/09/19 12/12/21 Sudha Greene, [place] [address] [address] PCP - General 11/01/22 Noreen Flores APRN LAST MARKER [address] [place] [address] [place] [address] Assigned PCP 06/16/18 05/26/22 Kalyan Galvan Personal Advocate & Liaison (PAL) 08/08/19 04/26/21 Lashae Trevino [facility] [address] [place] [address] Pharmacist Pharmacist 10/14/19 12/01/20 Eduardo Sharma MD [address] [place] [address] [place] [address] Assigned Sleep Provider 04/02/2005/07 [place] [address] [address] Assigned Musculoskeletal Provider 04/02/20 08/24/20 Marcelo Artis PA-C [address] [address] Assigned Musculoskeletal Provider 08/25/20 08/20/21 Rodrigo Man PA-C [address] [address] Assigned Surgical Provider 08/25/20 11/27/20 Noreen Flores APRN LAST MARKER [address] [place] [address] [place] [address] Assigned PCP 08/05/22 03/16/23 Agatha Null DPM, Podiatry/Foot and Ankle Surgery [address] [facility] [address] [place] [address] Assigned Musculoskeletal Provider 11/04/22 [facility] [address] [place] [address] Assigned PCP 07/05/23 12/31/23 documented as of this encounter
--- OUTSIDE RECORDS SUMMARY | 2024-04-03 07:13 | XMS_ITS | Encounter Summary ---
Author Organization [place] Address [address] [place] [address] Care Team Providers Care Underwriting Support Specialist Name Role Phone Vanda Guerrero MD Primary Care Provider [phone] Vanda Guerrero MD Unavailable [phone] Jeana-Noreen Miles APRN ELEVATOR SUPERVISOR Unavailable [facility]-Noreen Miles APRN ELEVATOR SUPERVISOR Unavailable [facility]-JdNoreen castro ROLLING MILL OPERATOR HELPER ELEVATOR SUPERVISOR Primary Car e Provider Kalyan Galvan Unavailable Unavailable Lashae Trevino [facility] Unavailable [phone] Eduardo Sharma MD Unavailable Rios Monteiro MD Unavailable Marcelo Artis PA-C Unavailable Rodrigo ManC Unavailable Jeana-Noreen Miles APRN ELEVATOR SUPERVISOR Unavailable Sudha Greene NP Primary Care Provider [phone] Agatha Null DPM, Podiatry /Foot and Ankle Surgery Unavailable [facility] [place] [facility] Unavailable Reason for Visit * Reason Onset Date Comments MyChart Communication 02/05/2018 Encounter Details Date Type Department Care Team (Late st Contact Info) Description 02/05/2018 MyC Medical Advice [facility] [place] [address] [place] [phone] Vanda Guerrero MD [address] [place] [address] [place] [address] MyChart Communication Social History Tobacco Use Types Packs/Day Years Used Date Smoking Tobacco: Never Smokeless Tobacco: Never Alcohol Use Standard Drinks/Week Comments Yes 0 (1 standard drink = 0.6 oz pur e alcohol) Rare Comments No Sex and Gender Information Value Date Recorded Sex Assigned at Not on file Legal Sex Female 3:19 AM FUR LINER Gender Identity Female 08/26/2020 9:05 PM CDT [...] Depression Total Score: 12 018 1:02 PM FUR LINER documented as of this encounter Care Teams Underwriting Support Specialist Relationship Specialty Start Date End Date Vanda Guerrero MD [address] [place] [address] [place] [address] PCP - General Internal Medicine 04/08/15 01/08/19 Vanda Guerrero MD [address] [place] [address] [place] [address] PCP - Assigned PCP 07/24/16 06/15/18 Noreen Flores APRN ELEVATOR SUPERVISOR [address] [place] [address] [place] [address] PCP - Assigned PCP 06/16/18 08/13/18 Noreen Flores APRN ELEVATOR SUPERVISOR [address] [place] [address] [place] [address] PCP - General Nurse Practitioner 01/09/19 12/12/21 Sudha Greene, MAURICIO [address] [address] PCP - General 11/01/22 Noreen Flores APRN ELEVATOR SUPERVISOR [address] [place] [address] [place] [address] Assigned PCP 06/16/18 05/26/22 Kalyan Galvan Personal Advocate & Liaison (PAL) 08/08/19 04/26/21 [facility] [address] [place] [address] [place] [address] Pharmacist Pharmacist 10/14/19 12/01/20 Eduardo Sharma MD [address] [facility] [address] [address] Assigned Sleep Provider 04/02/2005/07 Rios Monteiro MD [address] [place] [address] 300 [place] [address] Assigned Musculoskeletal Provider 04/02/20 08/24/20 Marcelo Artis PARejiC [address] [facility] 300 [place] [address] Assigned Musculoskeletal Provider 08/25/20 08/20/21 Rodrigo Man PA-C [address] [place] [address] Assigned Surgical Provider 08/25/20 11/27/20 Noreen Flores APRN ELEVATOR SUPERVISOR [address] [facility] [place] [address] Assigned PCP 08/05/22 03/16/23 Agatha Null DPM, Podiatry/Foot and Ankle Surgery [address] [place] [address] [place] [address] Assigned Musculoskeletal Provider 11/04/22 [facility] [place] [facility] [address] [facility] [place] [id number] Assigned PCP 07/05/23 12/31/23 documented as of this encounter
--- OUTSIDE RECORDS SUMMARY | 2024-04-03 07:13 | XMS_ITS | Encounter Summary ---
Author Organization [place] Address [address] [place] [address] Care Team Providers Care Auto Brake Technician Name Role Phone Vanda Guerrero MD Primary Care Provider [phone] Noreen Flores APRN CHAIR POST MACHINE OPERATOR Unavailable Noreen Flores APRN CHAIR POST MACHINE OPERATOR Primary Car e Provider Kalyan Galvan Unavailable Unavailable Lashae Trevino [facility] Unavailable [phone] Eduardo Sharma MD Unavailable Rios Monteiro MD Unavailable Marcelo Artis PA-C Unavailable Rodrigo Man PA-C Unavailable [phone] Noreen Flores APRN CHAIR POST MACHINE OPERATOR Unavailable Sudha Greene NP Primary Care Provider Agatha Null DPM, Podiatry /Foot and Ankle Surgery Unavailable [facility] [place] [facility] Unavailable Encounter Details Date Type Department Care Team (Late st Contact Info) Description 12/09/2018 [facility] [address] [facility] [address] [place] [address] Christi Panda MA Social History Tobacco [...] on file Legal Sex Female 3:19 AM WEDGER AND GLUER Gender Identity Female 08/26/2020 9:05 PM CDT [...] Depression Total Score: 7 06/25/19 9:49 AM WEDGER AND GLUER documented as of this encounter Care Teams Auto Brake Technician Relationship Specialty Start Date End Date Vanda Guerrero MD [address] [place] [address] [place] [address] PCP - General Internal Medicine 04/08/15 01/08/19 Noreen Flores APRN CHAIR POST MACHINE OPERATOR [address] [place] [address] [place] [address] PCP - General Nurse Practitioner 01/09/19 12/12/21 Sudha Greene NP [address] [address] PCP - General 11/01/22 Noreen Flores APRN CHAIR POST MACHINE OPERATOR [address] [place] [address] [place] [address] Assigned PCP 06/16/18 05/26/22 Kalyan Galvan Personal Advocate & Liaison (PAL) 08/08/19 04/26/21 [facility] [address] [facility] [place] [address] Pharmacist Pharmacist 10/14/19 12/01/20 Eduardo Sharma MD [address] [place] [address] [place], [place] [address] Assigned Sleep Provider 04/02/2005/07 [place] [address] [facility] 300 [place] [address] Assigned Musculoskeletal Provider 04/02/20 08/24/20 Marcelo Artis PA-C [address] [facility] 300 [place] [address] Assigned Musculoskeletal Provider 08/25/20 08/20/21 Rodrigo Man PA-C [address] [place] [address] [place] [address] Assigned Surgical Provider 08/25/20 11/27/20 Noreen Flores APRN CHAIR POST MACHINE OPERATOR [address] [place] [address] Assigned PCP 08/05/22 03/16/23 Agatha Null, DPM, Podiatry/Foot and Ankle Surgery [address] [facility] 300 [place] [address] Assigned Musculoskeletal Provider 11/04/22 [facility] [place] [address] [place] [address] Assigned PCP 07/05/23 12/31/23 documented as of this encounter
--- OUTSIDE RECORDS SUMMARY | 2024-04-03 07:13 | XMS_ITS | Encounter Summary ---
Author Organization [place] Address [address] [place] [address] Care Team Providers Care Sewing Line Baler Name Role Phone Noreen Flores APRN, CNP Unavailable Noreen Flores APRN PATENT LITIGATION ASSOCIATE Primary Car e Provider Kalyan Galvan Unavailable Unavailable Lashae Trevino [facility] Unavailable [phone] Eduardo Sharma MD Unavailable Rios Monteiro MD Unavailable Marcelo Artis PA-C Unavailable [phone] Rodrigo Man PA-C Unavailable [phone] Noreen Flores APRN PATENT LITIGATION ASSOCIATE Unavailable Sudha Greene NP Primary Care Provider Agatha Null DPM, Podiatry /Foot and Ankle Surgery Unavailable [facility] [place] [facility] Unavailable Reason for Visit * Reason Onset Date Comments Outreach 12/09/2019 Encounter Details Date Type Department Care Team (Late st Contact Info) Description 12/09/2019 [facility] [place] [address] [place] [phone] Noreen Flores APRN CNP [address] [facility] [place] [id number] Outreach Social History Tobacco Use Types Packs/Day [...] Answer Date Recorded PHQ-2 Score 2 07/25/2018 [facility] [place] [facility] Occupat ional Health - Occupational Stress [...] on file Legal Sex Female 3:19 AM CHEF ASSISTANT Gender Identity Female 08/26/2020 9:05 PM CDT [...] Called pharmacy noted that pt did not cherry picker operator the Imitrex 50 mg. Additionally, pharmacy requested that an order be faxed for the Loratadine-d as the e-prescribe didnot transmit to them. Fax number: [phone] Kalyan Galvan, EMT at 9:53 AM on December 11, 2019 [facility] [phone] documented in this encounter Plan of Treatment [...] Total Score: 9 08/09/19 20 7:03 AM CHEF ASSISTANT documented as of this encounter Care Teams Sewing Line Baler Relationship Specialty Start Date End Date Noreen Flores APRN PATENT LITIGATION ASSOCIATE [address] [facility] [place] [address] PCP - General Nurse Practitioner 01/09/19 12/12/21 Sudha Greene NP [address] [address] PCP - General 11/01/22 Noreen Flores APRN PATENT LITIGATION ASSOCIATE [address] [facility] [place] [address] Assigned PCP 06/16/18 05/26/22 Kalyan Galvan Personal Advocate & Liaison (PAL) 08/08/19 04/26/21 Lashae Trevino, [facility] [place] [id number] Pharmacist Pharmacist 10/14/19 12/01/20 Eduardo Sharma MD [address] [place] [address] [place], [place] [address] Assigned Sleep Provider 04/02/2005/07 [place] [address] [facility] [address] [place] [address] [place], [place] [address] Assigned Musculoskeletal Provider 04/02/20 08/24/20 Marcelo Artis PA-C [address] [place] [address] [place] [address] Assigned Musculoskeletal Provider 08/25/20 08/20/21 Rodrigo Man PA-C [address] [place] [address] [place], [place] [address] Assigned Surgical Provider 08/25/20 11/27/20 Noreen Flores APRN PATENT LITIGATION ASSOCIATE [address] [facility] [place] [address] Assigned PCP 08/05/22 03/16/23 Agatha Null, DPNita, Podiatry/Foot and Ankle Surgery [address] [place] [address] [place] [address] Assigned Musculoskeletal Provider 11/04/22 [facility] [place] [address] [address] Assigned PCP 07/05/23 12/31/23 documented as of this encounter
--- OUTSIDE RECORDS SUMMARY | 2024-04-03 07:13 | XMS_ITS | Encounter Summary ---
Author Organization [place] Address [address] [place] [address] Care Team Providers Care Seo Team Lead Name Role Phone Vanda Guerrero MD Primary Care Provider [phone] Vanda Guerrero MD Unavailable [phone] Jeana-Noreen Miles APRN [place] Unavailable [facility]-Noreen Miles APRN [place] Unavailable [facility]-JdNoreen castro SHEET ROCK TAPER [place] Primary Car e Provider Kalyan Galvan Unavailable Unavailable Lashae Trevino [facility] Unavailable Eduardo Sharma MD Unavailable Rios Monteiro MD Unavailable Marcelo Artis PA-C Unavailable Rodrigo Man PA-C Unavailable Jeana-Noreen Miles APRN [place] Unavailable Sudha Greene NP Primary Care Provider Agatha Null DPM, Podiatry /Foot and Ankle Surgery Unavailable [facility] [place] [facility] Unavailable Reason for Visit * Reason Comments Medication Refill simvastatin (ZOCOR) 20 MG tablet Encounter Details Date Type Department Care Team (Late st Contact Info) Description 02/15/2017 Refill [facility] [place] [address] [place] [address] Vanda Guerrero MD [address] [facility] [place] [address] Medication Refill (simvastatin (ZOCOR) 20 MG tablet) Social History Tobacco Use Types Packs/Day Years Used Date Smoking Tobacco: Never Smokeless Tobacco: Never Alcohol Use Standard Drinks/Week Comments Yes 0 (1 standard drink = 0.6 oz pur e alcohol) Rare Comments No Sex and Gender Information Value Date Recorded Sex Assigned at Not on file 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 160-189 mg/dL Very high: ? >189 mg/dl Non HDL Cholesterol 135(H) <130 mg/dL 02/17/2017 2:14 PM CDT [facility] Comment: Above Desirable: ??130-159 mg/dl Borderline high: ??160-189 mg/dl High: ? 190-219 mg/dl Very high: ? >219 mg/dl Blood specimen (specimen) 02/17/2017 9:13 AM CDT 02/17/2017 9:18 AM CDT us Vanda Guerrero MD LAB - BLOOD ORDERABLES Fi nal Result [facility] [address] [place] [address] documented in this encounter Visit Diagnoses Diagnosis [...] as of this encounter Care Teams Seo Team Lead Relationship Specialty Start Date End Date Vanda Guerrero MD [address] [place] [address] [place] [address] PCP - General Internal Medicine 04/08/15 01/08/19 Vanda Guerrero MD [address] [place] [address] [place] [address] PCP - Assigned PCP 07/24/16 06/15/18 Noreen Flores APRN [place] [address] [place] [address] [place] [address] PCP - Assigned PCP 06/16/18 08/13/18 Noreen Flores APRN [place] [address] [place] [address] [place] [address] PCP - General Nurse Practitioner 01/09/19 12/12/21 Sudha Greene NP [address] [address] PCP - General 11/01/22 Noreen Flores APRN [place] [address] [place] [address] [place] [address] Assigned PCP 06/16/18 05/26/22 Kalyan Galvan Personal Advocate & Liaison (PAL) 08/08/19 04/26/21 Lashae Trevino [facility] [address] [facility] [place] [address] Pharmacist Pharmacist 10/14/19 12/01/20 Eduardo Sharma MD [address] [place] [address] [place], [place] [address] Assigned Sleep Provider 04/02/2005/07 [place] [address] [facility] 300 [place] [address] Assigned Musculoskeletal Provider 04/02/20 08/24/20 Marcelo Artis PA-C [address] [facility] 300 [place] [address] Assigned Musculoskeletal Provider 08/25/20 08/20/21 Rodrigo Man PA-C [address] [place] [address] [place], [place] [address] Assigned Surgical Provider 08/25/20 11/27/20 Noreen Flores APRN [place] [address] [facility] [place] [address] Assigned PCP 08/05/22 03/16/23 Agatha Null, DPM, Podiatry/Foot and Ankle Surgery [address] [facility] 300 [place], [place] [address] Assigned Musculoskeletal Provider 11/04/22 [facility] [place] [address] [place] [address] Assigned PCP 07/05/23 12/31/23 documented as of this encounter
--- OUTSIDE RECORDS SUMMARY | 2024-04-03 07:13 | XMS_ITS | Encounter Summary ---
Author Organization [place] Address [address] [place] [address] Care Team Providers Care Dial Refinisher Name Role Phone Vanda Guerrero MD Primary Care Provider [phone] Vanda Guerrero MD Unavailable [phone] Jeana-JdNoreen castro APRN SUPERVISOR POWDERED METAL Unavailable [facility]-Noreen Miles APRN SUPERVISOR POWDERED METAL Unavailable [facility]-JdNoreen castro RODENT EXTERMINATOR SUPERVISOR POWDERED METAL Primary Car e Provider Kalyan Galvan Unavailable Unavailable Lashae Trevino [facility] Unavailable [phone] Eduardo Sharma MD Unavailable Rios Monteiro MD Unavailable [phone] Marcelo Artis PA-C Unavailable Rodrigo ManC Unavailable Jeana-Noreen Miles APRN SUPERVISOR POWDERED METAL Unavailable Sudha Greene NP Primary Care Provider [phone] Agatha Null DPM, Podiatry /Foot and Ankle Surgery Unavailable [facility] [place] [facility] Unavailable Reason for Visit * Reason Comments Medication Refill ONETOUCH ULTRA test strip; simvastatin (ZOCOR) 20 MG tablet Encounter Details Date Type Department Care Team (Late st Contact Info) Description 12/21/2017 Refill [facility] [place] [address] [place] [address] Vanda Guerrero MD [address] [facility] [place] [address] Medication Refill (ONETOUCH ULTRA test strip; simvastatin (ZOCOR) 20 MG tablet) Social History Tobacco Use Types Packs/Day Years Used Date Smoking Tobacco: Never Smokeless Tobacco: Never Alcohol Use Standard Drinks/Week Comments Yes 0 (1 standard drink = 0.6 oz pur e alcohol) Rare Comments No Sex and Gender Information Value Date Recorded Sex Assigned at Not on file Legal Sex Female 3:19 AM BEEF RIBBER Gender Identity Female 08/26/2020 9:05 PM CDT Sexual Orientation Not on file 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 Day Greene RN, BSN * [...] Depression Total Score: 12 018 1:02 PM BEEF RIBBER documented as of this encounter Care Teams Dial Refinisher Relationship Specialty Start Date End Date Vanda Guerrero MD [facility] [place] [address] PCP - General Internal Medicine 04/08/15 01/08/19 Vanda Guerrero MD [address] [place] [address] [place] [address] PCP - Assigned PCP 07/24/16 06/15/18 Noreen Flores APRN SUPERVISOR POWDERED METAL [address] [place] [address] [place] [address] PCP - Assigned PCP 06/16/18 08/13/18 Norene Flores APRN SUPERVISOR POWDERED METAL [address] [place] [address] [place] [address] PCP - General Nurse Practitioner 01/09/19 12/12/21 Sudha Greene, MAURICIO [address] [address] PCP - General 11/01/22 Noreen Flores APRN SUPERVISOR POWDERED METAL [address] [place] [address] [place] [address] Assigned PCP 06/16/18 05/26/22 Kalyan Galvan Personal Advocate & Liaison (PAL) 08/08/19 04/26/[address] [address] [facility] [address] [place] [address] Pharmacist Pharmacist 10/14/19 12/01/20 Eduardo Sharma MD [address] [place] [address] [place] [address] Assigned Sleep Provider 04/02/2005/07 [place] [address] [facility] [address] [place] [address] Assigned Musculoskeletal Provider 04/02/20 08/24/20 Marcelo Artis PA-C [address] [place] [address] [place] [address] Assigned Musculoskeletal Provider 08/25/20 08/20/21 Rodrigo Man PA-C [address] [facility] [address] [place] [address] Assigned Surgical Provider 08/25/20 11/27/20 Noreen Flores APRN SUPERVISOR POWDERED METAL [address] [place] [address] [place] [address] Assigned PCP 08/05/22 03/16/23 Agatha Null, MARÍA, Podiatry/Foot and Ankle Surgery [address] [place] [address] 300 [place] [address] Assigned Musculoskeletal Provider 11/04/22 [facility] [place] [facility] [address] [facility] [place] [address] Assigned PCP 07/05/23 12/31/23 documented as of this encounter
--- OUTSIDE RECORDS SUMMARY | 2024-04-03 07:13 | XMS_ITS | Encounter Summary ---
Author Organization [place] Address [address] [place] [address] Care Team Providers Care Senior Operations Manager Name Role Phone Vanda Guerrero MD Primary Care Provider [phone] Vanda Guerrero MD Unavailable [phone] Jeana-Noreen Miles APRN COMPUTER APPLICATION DEVELOPER Unavailable [facility]-Noreen Miles APRN COMPUTER APPLICATION DEVELOPER Unavailable [facility]-JdNoreen castro SPOON MAKER COMPUTER APPLICATION DEVELOPER Primary Car e Provider Kalyan Galvan Unavailable Unavailable Lashae Trevino [facility] Unavailable [phone] Eduardo Sharma MD Unavailable Rios Monteiro MD Unavailable Marcelo Artis PA-C Unavailable Rodrigo ManC Unavailable Jeana-Noreen Miles APRN COMPUTER APPLICATION DEVELOPER Unavailable Sudha Greene NP Primary Care Provider Agatha Null DPM, Podiatry /Foot and Ankle Surgery Unavailable [facility] [place] [facility] Unavailable Reason for Visit * Reason Comments Medication Refill zolpidem (AMBIEN) 5 MG tablet Encounter Details Date Type Department Care Team (Late st Contact Info) Description 02/20/2018 Refill [facility] [place] [address] [place] [address] Vanda Guerrero MD [address] [facility] [place] [address] Medication Refill (zolpidem (AMBIEN) 5 MG tablet) Social History Tobacco Use Types Packs/Day Years Used Date Smoking Tobacco: Never Smokeless Tobacco: Never Alcohol Use Standard Drinks/Week Comments Yes 0 (1 standard drink = 0.6 oz pur e alcohol) Rare Comments No Sex and Gender Information Value Date Recorded Sex Assigned at Not on file 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 Has not picked up all refills, but the script . Gayathri Mcallister RN Message handled by Nurse Triage. * Telephone Encounter - Vipul Marisa - 02/21/2018 8:04 AM CDT Requested Prescriptions Pending Prescriptions Disp Refills ??? zolpidem (AMBIEN) 5 MG tablet [Pharmacy Med Name: ZOLPIDEM TARTRATE 5 MG TABLET] Last Written Prescription Date: 06/12/2017 Last Fill Quantity: 30, # refills: 5 Last Office Visit: 06/12/2017 Future Office visit: Routing refill request to provider for review/approval because: Drug not on the [facility], P or [facility] refill protocol or controlled substance 15 tablet [...] of this encounter Care Teams Senior Operations Manager Relationship Specialty Start Date End Date Vanda Guerrero MD [address] [facility] [place] [address] PCP - General Internal Medicine 04/08/15 01/08/19 Vanda Guerrero MD [address] [facility] [place] [address] PCP - Assigned PCP 07/24/16 06/15/18 Noreen Flores APRN CNP [address] [facility] [place] [address] PCP - Assigned PCP 06/16/18 08/13/18 Noreen Flores APRN COMPUTER APPLICATION DEVELOPER [address] [place] [address] [place] [address] PCP - General Nurse Practitioner 01/09/19 12/12/21 Sudha Greene, MAURICIO [address] [address] PCP - General 11/01/22 Noreen Flores APRN COMPUTER APPLICATION DEVELOPER [address] [place] [address] [place] [address] Assigned PCP 06/16/18 05/26/22 Kalyan Galvan Personal Advocate & Liaison (PAL) 08/08/19 04/26/21 [facility] [address] [place] [address] [place] [address] Pharmacist Pharmacist 10/14/19 12/01/20 Eduardo Sharma MD [address] [address] Assigned Sleep Provider 04/02/2005/07 Rios Monteiro MD [address] [place] [address] Assigned Musculoskeletal Provider 04/02/20 08/24/20 Marcelo Artis PA-C [address] [facility] 300 [place] [address] Assigned Musculoskeletal Provider 08/25/20 08/20/21 Rodrigo Man PA-C [address] [place] [address] Assigned Surgical Provider 08/25/20 11/27/20 Noreen Flores APRN COMPUTER APPLICATION DEVELOPER [address] [facility] [place] [address] Assigned PCP 08/05/22 03/16/23 Agatha Null DPM, Podiatry/Foot and Ankle Surgery [address] [place] [address] Assigned Musculoskeletal Provider 11/04/22 [facility] [place] [facility] [address] [facility] [place] [address] Assigned PCP 07/05/23 12/31/23 documented as of this encounter
--- OUTSIDE RECORDS SUMMARY | 2024-04-03 07:13 | XMS_ITS | Encounter Summary ---
Author Organization [place] Address [address] [place] [address] Care Team Providers Care Psychiatric Nurse Practitioner Name Role Phone Noreen Flores APRN TIN CAN FEEDER Unavailable Noreen Flores APRN TIN CAN FEEDER Primary Car e Provider Kalyan Galvan Unavailable Unavailable Lashae Trevino [facility] Unavailable Eduardo Sharma MD Unavailable Rios Monteiro MD Unavailable Marcelo Artis PA-C Unavailable Rodrigo Man PA-C Unavailable [phone] Noreen Flores APRN TIN CAN FEEDER Unavailable Sudha Greene NP Primary Care Provider Agatha Null DPM, Podiatry /Foot and Ankle Surgery Unavailable Clinic - [facility] Unavailable Encounter Details Date Type Department Care Team (Late st Contact Info) Description 05/30/2019 Myra Moya [facility] [address] [facility] [address] [place] [address] Christi Panda MA Social History [...] on file 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 Gender Identity Female 08/26/2020 9:05 PM CDT [...] documented as of this encounter Care Teams Psychiatric Nurse Practitioner Relationship Specialty Start Date End Date Noreen Flores APRN TIN CAN FEEDER [address] [place] [address] [place] [address] PCP - General Nurse Practitioner 01/09/19 12/12/21 Sudha Greene, MAURICIO [address] [address] PCP - General 11/01/22 Noreen Flores APRN TIN CAN FEEDER [address] [place] [address] [place] [address] Assigned PCP 06/16/18 05/26/22 Kalyan Galvan Personal Advocate & Liaison (PAL) 08/08/19 04/26/21 Lashae Trevino, [facility] [address] [place] [address] Pharmacist Pharmacist 10/14/19 12/01/20 Eduardo Sharma MD [address] [place] [address] [place] [address] Assigned Sleep Provider 04/02/2005/07 [place] [address] [facility] 300 [place] [address] Assigned Musculoskeletal Provider 04/02/20 08/24/20 Marcelo Artis PA-C [address] [facility] 300 [place] [address] Assigned Musculoskeletal Provider 08/25/20 08/20/21 Rodrigo Man PA-C [address] [place] [address] [place] [address] Assigned Surgical Provider 08/25/20 11/27/20 Noreen Flores APRN CNP [address] [place] [address] [place] [address] Assigned PCP 08/05/22 03/16/23 Agatha Null DPM, Podiatry/Foot and Ankle Surgery [address] [place] [address] [address] [place] [address] Assigned Musculoskeletal Provider 11/04/22 [facility] [address] [facility] [place] [address] Assigned PCP 07/05/23 12/31/23 documented as of this encounter
--- OUTSIDE RECORDS SUMMARY | 2024-04-03 07:13 | XMS_ITS | Encounter Summary ---
Author Organization [place] Address [address] [place] [address] Care Team Providers Care Environmental Health Specialist Name Role Phone Noreen Flores APRN, CNP Unavailable Noreen Flores APRN, CNP Primary Car e Provider Kalyan Galvan Unavailable Unavailable Lashae Trevino [facility] Unavailable Eduardo Sharma MD Unavailable Rios Monteiro MD Unavailable [phone] Marcelo Artis PA-C Unavailable Rodrigo Man PA-C Unavailable [phone] Noreen Flores APRN, CNP Unavailable Sudha Greene NP Primary Care Provider Agatha Null DPM, Podiatry /Foot and Ankle Surgery Unavailable Clinic - [facility] Unavailable Reason for Visit * Reason Onset Date Comments Medication Refill 04/25/2019 metFORMIN (GLU COPHAGE) 500 MG tablet Encounter Details Date Type Department Care Team (Late st Contact Info) Description 04/25/2019 Refill M [facility] [address] [facility] [place] [address] Noreen Flores APRN CNP [address] [facility] [place] [address] Medication Refill (metFORMIN (GLUCOPHAGE) 500 MG tablet) [...] on file Legal Sex Female 3:19 AM FACILITY MAINTENANCE WORKER Gender Identity Female 08/26/2020 9:05 PM CDT Sexual Orientation Not on file 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 LITY MAINTENANCE WORKER documented in this encounter Plan of [...] as of this encounter Care Teams Environmental Health Specialist Relationship Specialty Start Date End Date Jeana-Noreen Miles APRN PRESCRIPTION CLERK LENSES [address] [facility] [place] [address] PCP - General Nurse Practitioner 01/09/19 12/12/21 Sudha Greene NP [address] [address] PCP - General 11/01/22 Noreen Flores APRN PRESCRIPTION CLERK LENSES [address] [place] [address] [place] [address] Assigned PCP 06/16/18 05/26/22 Kalyan Galvan Personal Advocate & Liaison (PAL) 08/08/19 04/26/21 Lashae Trevino, [facility] [address] [place] [address] [place] [phone] Pharmacist Pharmacist 10/14/19 12/01/20 Eduardo Sharma MD [address] [place] [address] [place] [address] Assigned Sleep Provider 04/02/2005/07 [place] [address] [facility] 300 [place] [address] Assigned Musculoskeletal Provider 04/02/20 08/24/20 Marcelo Artis PA-C [address] [facility] 300 [place] [address] Assigned Musculoskeletal Provider 08/25/20 08/20/21 Rodrigo Man PA-C [address] [place] [address] [place] [address] Assigned Surgical Provider 08/25/20 11/27/20 Noreen Flores APRN PRESCRIPTION CLERK LENSES [address] [place] [address] [place] [address] Assigned PCP 08/05/22 03/16/23 Agatha Null DPM, Podiatry/Foot and Ankle Surgery [address] [place] [address] Assigned Musculoskeletal Provider 11/04/22 [facility] [address] [facility] [place] [address] Assigned PCP 07/05/23 12/31/23 documented as of this encounter
--- OUTSIDE RECORDS SUMMARY | 2024-04-03 07:13 | XMS_ITS | Encounter Summary ---
Author Organization [place] Address [address] [place] [address] Care Team Providers Care City Administrator Name Role Phone Noreen Flores APRN MACHINE STRIPER Unavailable Noreen Flores APRN MACHINE STRIPER Primary Car e Provider Kalyan Galvan Unavailable Unavailable Lashae Trevino [facility] Unavailable Eduadro Sharma MD Unavailable Rios Monteiro MD Unavailable [phone] Marcelo Artis PA-C Unavailable Rodrigo Man PA-C Unavailable [phone] Noreen Flores APRN MACHINE STRIPER Unavailable Sudha Greene NP Primary Care Provider Agatha Null DPM, Podiatry /Foot and Ankle Surgery Unavailable Clinic - [facility] Unavailable Encounter Details Date Type Department Care Team (Late st Contact Info) Description 10/28/2019 [facility] [address] [place] [address] Noreen Flores APRN MACHINE STRIPER [address] [facility] [place] [address] Social History Tobacco [...] Score 2 07/25/2018 [facility] [place] of Occupat ional Health - Occupational Stress [...] on file Legal Sex Female 3:19 AM 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 REGULATOR AND VALVE 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 Gender Identity Female 08/26/2020 9:05 PM CDT [...] Total Score: 9 08/09/19 20 7:03 AM WATER REGULATOR AND VALVE REPAIRER documented as of this encounter Care Teams City Administrator Relationship Specialty Start Date End Date Jeana-Noreen Miles APRN CNP [address] [facility] [place] [address] PCP - General Nurse Practitioner 01/09/19 12/12/21 Sudha Greene NP [facility] [address] [place] [address] PCP - General 11/01/22 Noreen Flores APRN MACHINE STRIPER [address] [place] [address] [place] [address] Assigned PCP 06/16/18 05/26/22 Kalyan Galvan Personal Advocate & Liaison (PAL) 08/08/19 04/26/21 Lashae Trevino, [facility] [address] [place] [address] [place] [phone] Pharmacist Pharmacist 10/14/19 12/01/20 Eduardo Sharma MD [address] [place] [address] [place] [address] Assigned Sleep Provider 04/02/2005/07 [place] [address] [facility] 300 [place] [address] Assigned Musculoskeletal Provider 04/02/20 08/24/20 Marcelo Artis PA-C [address] [facility] 300 [place] [address] Assigned Musculoskeletal Provider 08/25/20 08/20/21 Rodrigo Man PA-C [address] [place] [address] [place] [address] Assigned Surgical Provider 08/25/20 11/27/20 Noreen Flores APRN MACHINE STRIPER [facility] [place] [address] Assigned PCP 08/05/22 03/16/23 Agatha Null DPM, Podiatry/Foot and Ankle Surgery [address] [place] [address] Assigned Musculoskeletal Provider 11/04/22 [facility] [address] [place] [address] Assigned PCP 07/05/23 12/31/23 documented as of this encounter
--- OUTSIDE RECORDS SUMMARY | 2024-04-03 07:13 | XMS_ITS | Encounter Summary ---
Author Organization [place] Address [address] [place] [address] Care Team Providers Care Detective Homicide Squad Name Role Phone Nroeen Flores APRN OXYGEN TANK FILLER Unavailable Noreen Flores APRN OXYGEN TANK FILLER Primary Car e Provider Kalyan Galvan Unavailable Unavailable Lashae Trevino [facility] Unavailable Eduardo Sharma MD Unavailable Rios Monteiro MD Unavailable Marcelo Artis PA-C Unavailable Rodrigo Man PA-C Unavailable [phone] Noreen Flores APRN OXYGEN TANK FILLER Unavailable Sudha Greene NP Primary Care Provider Agatha Null DPM, Podiatry /Foot and Ankle Surgery Unavailable Clinic - [facility] Unavailable Encounter Details Date Type Department Care Team (Late st Contact Info) Description 12/23/2019 [facility] Lucy [facility] [address] [place] [address] Noreen Flores APRN OXYGEN TANK FILLER [address] [facility] [place] [address] Chronic seasonal allergic [...] Score 2 07/25/2018 [facility] [place] of Occupat ional Health - Occupational Stress [...] on file Legal Sex Female 3:19 AM PICK UP ATTENDANT Gender Identity Female 08/26/2020 9:05 PM CDT [...] 2:11 PM CDT Please call [facility] in [facility] and find out why they are having [...] Total Score: 9 08/09/19 20 7:03 AM PICK UP ATTENDANT documented as of this encounter Care Teams Detective Homicide Squad Relationship Specialty Start Date End Date Noreen Flores APRN OXYGEN TANK FILLER [facility] [place] [address] PCP - General Nurse Practitioner 01/09/19 12/12/21 Sudha Greene NP [address] [address] PCP - General 11/01/22 Noreen Flores APRN OXYGEN TANK FILLER [address] [place] [address] [place] [address] Assigned PCP 06/16/18 05/26/22 Kalyan Galvan Personal Advocate & Liaison (PAL) 08/08/19 04/26/21 Lashae Trevino [facility] [address] [place] [address] [place] [phone] Pharmacist Pharmacist 10/14/19 12/01/20 Eduardo Sharma MD [address] [facility] [address] [place] [address] Assigned Sleep Provider 04/02/2005/07 [place] [address] [place] [address] [place] [address] Assigned Musculoskeletal Provider 04/02/20 08/24/20 Marcelo Artis, PARejiC [address] [place] [address] [place] [address] Assigned Musculoskeletal Provider 08/25/20 08/20/21 Rodrigo Man PA-C [address] [place] [address] Assigned Surgical Provider 08/25/20 11/27/20 Noreen Flores APRN OXYGEN TANK FILLER [address] [facility] [place] [address] Assigned PCP 08/05/22 03/16/23 Agatha Null DPM, Podiatry/Foot and Ankle Surgery [address] [place] [address] Assigned Musculoskeletal Provider 11/04/22 [facility] [address] [facility] [place] [address] Assigned PCP 07/05/23 12/31/23 documented as of this encounter
--- OUTSIDE RECORDS SUMMARY | 2024-04-03 07:13 | XMS_ITS | Encounter Summary ---
Author Organization [place] Address [address] [place] [address] Care Team Providers Care Bioinformatics Computer Scientist Name Role Phone Vanda Guerrero MD Primary Care Provider [phone] Vanda Guerrero MD Unavailable [phone] Jeana-JdNoreen castro APRN WIND FIELD SERVICE MANAGER Unavailable [facility] Miles APRN WIND FIELD SERVICE MANAGER Unavailable [facility]Jd[facility]en castro RAIL SWITCH OPERATOR WIND FIELD SERVICE MANAGER Primary Car e Provider Kalyan Galvan Unavailable Unavailable Lashae Trevino [facility] Unavailable Eduardo Sharma MD Unavailable Rios Monteiro MD Unavailable [phone] Marcelo Artis PA-C Unavailable Rodrigo Man-C Unavailable Jeana-Noreen Miles APRN WIND FIELD SERVICE MANAGER Unavailable Sudha Greene NP Primary Care Provider Agatha Null DPM, Podiatry /Foot and Ankle Surgery Unavailable [facility] Unavailable Reason for Referral * Diagnostic Imaging Ultrasound - Closed Specialty Diagnoses / Procedures Referred By Rylie garcia Referred To Contact Radiology. Diagnoses Alkaline phosphatase elevation Procedures US Abdomen Limited Vanda Guerrero MD [address] [facility] [place] [address] Phone: tel: fax: [facility] [address] [place] [address] [place] [address] Phone: tel: fax: Referral ID Status Reason Start Date Expiration Date Visits Re quested Visits Authorized [id number] Closed 06/15/2017 06/15/2018 1 1 BERRY SORTER Reason for Visit * Reason Onset Date Comments Lab Result Notice 06/15/2017 response to 06/12/17 result note Encounter Details Date Type Department Care Team (Late st Contact Info) Description 06/15/2017 [facility] Medical Advice [facility] [place] [address] [facility] [address] [place] [phone] Vanda Guerrero MD [address] [facility] [place] [address] Lab Result Notice (response to 06/12/17 resu... 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 BERRY SORTER * Telephone Encounter - Vanda Guerrero MD - 06/15/2017 2:48 PM CRANBERRY SORTER Orders placed - please let patient know. BERRY SORTER * Telephone Encounter - Kallie Celaya, RN - 06/15/2017 2:31 PM CRANBERRY SORTER Patient ok to restart Metformin & for US. T'd up. Please advise. BERRY SORTER documented in this encounter Plan of Treatment Not on file documented as of this encounter Results * US Abdomen Limited (06/21/2017 10:11 AM CRANBERRY SORTER) Anatomical Region Laterality Modality Abdomen/Pelvis Ultrasound Impressions 06/21/2017 10:49 AM CRANBERRY SORTER IMPRESSION: ??Fatty infiltration of the liver. No gallstones or bile duct dilatation. BRIDGETTE LOZA MD Narrative 06/21/2017 10:49 AM CRANBERRY SORTER ULTRASOUND ABDOMEN LIMITED 06/21/2017 10:11 AM HISTORY: [...] MD Vanda Guerrero MD IMG US ORDERABLES Final R esult documented in this encounter Visit Diagnoses Diagnosis [...] Depression Total Score: 12 018 1:02 PM CRANBERRY SORTER documented as of this encounter Care Teams Bioinformatics Computer Scientist Relationship Specialty Start Date End Date Vanda Guerrero MD [address] [place] [address] [place] [address] PCP - General Internal Medicine 04/08/15 01/08/19 Vanda Guerrero MD [address] [place] [address] [place] [address] PCP - Assigned PCP 07/24/16 06/15/18 Noreen Flores APRN WIND FIELD SERVICE MANAGER [address] [place] [address] [place] [address] PCP - Assigned PCP 06/16/18 08/13/18 Noreen Flores APRN WIND FIELD SERVICE MANAGER [address] [place] [address] [place] [address] PCP - General Nurse Practitioner 01/09/19 12/12/21 Sudha Greene, MAURICIO [address] [address] PCP - General 11/01/22 Noreen Flores APRN WIND FIELD SERVICE MANAGER [address] [place] [address] [place] [address] Assigned PCP 06/16/18 05/26/22 Kalyan Galvan Personal Advocate & Liaison (PAL) 08/08/19 04/26/21 Lashae Trevino, [facility] [place] [phone] Pharmacist Pharmacist 10/14/19 12/01/20 Eduardo Sharma MD [address] [facility] 103 [place], [place] [address] Assigned Sleep Provider 04/02/2005/07 Rios Monteiro MD [address] [place] [address] 300 [place] [address] Assigned Musculoskeletal Provider 04/02/20 08/24/20 Marcelo Artis PA-C [address] [place] [address] Assigned Musculoskeletal Provider 08/25/20 08/20/21 Rodrigo Man PA-C [address] [facility] 450 [place] [address] Assigned Surgical Provider 08/25/20 11/27/20 Noreen Flores APRN WIND FIELD SERVICE MANAGER [address] [place] [address] [place] [address] Assigned PCP 08/05/22 03/16/23 Agatha Null DPM, Podiatry/Foot and Ankle Surgery [address] [place] [address] [address] [place] [address] Assigned Musculoskeletal Provider 11/04/22 [facility] M [address] [address] Assigned PCP 07/05/23 12/31/23 documented as of this encounter
--- OUTSIDE RECORDS SUMMARY | 2024-04-03 07:13 | XMS_ITS | Encounter Summary ---
Author Organization [place] Address [address] [place] [address] Care Team Providers Care Can Conveyor Feeder Name Role Phone Noreen Flores APRN SENIOR PRODUCT MANAGER Unavailable Noreen Flores APRN SENIOR PRODUCT MANAGER Primary Car e Provider Kalyan Galvan Unavailable Unavailable Lashae Trevino [facility] Unavailable [phone] Eduardo Sharma MD Unavailable Rios Monteiro MD Unavailable [phone] Marcelo Artis PA-C Unavailable [phone] Rodrigo ManC Unavailable [phone] Noreen Flores APRN SENIOR PRODUCT MANAGER Unavailable Sudha Greene NP Primary Care Provider [phone] Agatha Null DPM, Podiatry /Foot and Ankle Surgery Unavailable [facility] Unavailable Encounter Details Date Type Department Care Team (Late st Contact Info) Description 10/14/2019 [facility] Lucy Moya [facility] [place] [address] [facility] [address] [place] [address] [...] PHQ-2 Score 2 07/25/2018 [facility] [place] of Occupat ional Health - [...] on file Legal Sex Female 3:19 AM GRADE AND CENTER MARKER Gender Identity Female 08/26/2020 9:05 PM CDT [...] Time PHQ-9 Depression Total Score: 9 08/09/19 7:03 AM GRADE AND CENTER MARKER documented as of this encounter Care Teams Can Conveyor Feeder Relationship Specialty Start Date End Date Noreen Flores APRN SENIOR PRODUCT MANAGER [address] [place] [address] [place] [address] PCP - General Nurse Practitioner 01/09/19 12/12/21 Sudha Greene NP [address] [address] PCP - General 11/01/22 Noreen Flores APRN SENIOR PRODUCT MANAGER [address] [place] [address] [place] [address] Assigned PCP 06/16/18 05/26/22 Kalyan Galvan Personal Advocate & Liaison (PAL) 08/08/19 04/26/21 Lashae Trevino, [facility] [address] [place] [address] Pharmacist Pharmacist 10/14/19 12/01/20 Eduardo Sharma MD [address] [place] [address] [place] [address] Assigned Sleep Provider 04/02/2005/07 [place] [id number] [place] [address] [address] [place] [address] Assigned Musculoskeletal Provider 04/02/20 08/24/20 Marcelo Artis PA-C [address] [place] [address] 300 [place] [address] Assigned Musculoskeletal Provider 08/25/20 08/20/21 Rodrigo Man PA-C [address] [facility] [address] [place] [address] Assigned Surgical Provider 08/25/20 11/27/20 Noreen Flores APRN SENIOR PRODUCT MANAGER [address] [place] [address] [place] [id number] Assigned PCP 08/05/22 03/16/23 Agatha Null DPM, Podiatry/Foot and Ankle Surgery [address] [place] [address] [facility] [address] [place] [address] Assigned Musculoskeletal Provider 11/04/22 [facility] [place] [address] [facility] [place] [address] Assigned PCP 07/05/23 12/31/23 documented as of this encounter
--- OUTSIDE RECORDS SUMMARY | 2024-04-03 07:13 | XMS_ITS | Encounter Summary ---
Author Organization [place] Address [address] [place] [address] Care Team Providers Care Surgical Garment Assembly Supervisor Name Role Phone Vanda Guerrero MD Primary Care Provider [phone] Vanda Guerrero MD Unavailable [phone] Jeana-Noreen Miles APRN MACHINE STITCHER Unavailable [facility]-Noreen Miles APRN MACHINE STITCHER Unavailable [facility]-JdNoreen castro DIRECTOR SHIP MACHINE STITCHER Primary Car e Provider Kalyan Galvan Unavailable Unavailable Lashae Treivno [facility] Unavailable Eduardo Sharma MD Unavailable Rios Monteiro MD Unavailable Marcelo Artis PA-C Unavailable Rodrigo ManC Unavailable Jeana-Noreen Miles APRN MACHINE STITCHER Unavailable Sudha Greene NP Primary Care Provider Agatha Null DPM, Podiatry /Foot and Ankle Surgery Unavailable [facility] Unavailable Reason for Visit * Reason Onset Date Comments Patient/info Update 07/18/2017 post C7-T1 i nterlaminar epidural steroid injection Encounter Details Date Type Department Care Team (Late st Contact Info) Description 07/18/2017 Telephone [facility] Pain Management [place] [address] [facility] [address] [place], [place] [address] Jim Wang MD [address] [place] [address] Patient/info Update (post C7-T1 interlaminar epidural steroid injection ) Social History Tobacco Use Types Packs/Day Years Used Date Smoking Tobacco: Never Smokeless Tobacco: Never Alcohol Use Standard Drinks/Week Comments Yes 0 (1 standard drink = 0.6 oz pur e alcohol) Rare Comments No Sex and Gender Information Value Date Recorded Sex Assigned at Not on file Legal Sex Female 3:19 AM SPRING TESTER Gender Identity Female 08/26/2020 9:05 PM CDT [...] pt should call the nurse line at [phone]. NG TESTER documented in this encounter Plan of Treatment Not on file documented as of this encounter Visit Diagnoses Not on filedocumented in this encounter Additional Health Concerns Infection Onset Date Last Indicated Resolved Time Rule Out COVID-19 08/25/2020 08/25/2020 08/26/2020 3:23 PM CDT Rule Out COVID-19 11/26/2022 11/26/2022 11/27/2022 3:38 PM CDT Assessment Noted Time PHQ-9 Depression Total Score: 12 018 1:02 PM SPRING TESTER documented as of this encounter Care Teams Surgical Garment Assembly Supervisor Relationship Specialty Start Date End Date Vanda Guerrero MD [address] [place] [address] [place] [address] PCP - General Internal Medicine 04/08/15 01/08/19 Vanda Guerrero MD [address] [place] [address] [place] [address] PCP - Assigned PCP 07/24/16 06/15/18 Noreen Flores APRN MACHINE STITCHER [address] [place] [address] [place] [address] PCP - Assigned PCP 06/16/18 08/13/18 Noreen Flores APRN MACHINE STITCHER [address] [place] [address] [place] [address] PCP - General Nurse Practitioner 01/09/19 12/12/21 Sudha Greene NP [address] [address] PCP - General 11/01/22 Noreen Flores APRN MACHINE STITCHER [address] [place] [address] [place] [address] Assigned PCP 06/16/18 05/26/22 Kalyan Galvan Personal Advocate & Liaison (PAL) 08/08/19 04/26/21 Lashae Trevino, [facility] [address] [place] [address] [place] [address] Pharmacist Pharmacist 10/14/19 12/01/20 Eduardo Sharma MD [address] [place] [address] Assigned Sleep Provider 04/02/2005/07 [place] [address] [facility] [address] [place], [place] [address] Assigned Musculoskeletal Provider 04/02/20 08/24/20 Marcelo Artis PA-C [address] [facility] [address] [place] [address] Assigned Musculoskeletal Provider 08/25/20 08/20/21 Rodrigo Man PA-C [address] [place] [address] Assigned Surgical Provider 08/25/20 11/27/20 Noreen Flores APRN MACHINE STITCHER [address] [place] [address] [place] [address] Assigned PCP 08/05/22 03/16/23 Agatha Null DPM, Podiatry/Foot and Ankle Surgery [id number] [place] [address] [facility] [address] [place] [address] Assigned Musculoskeletal Provider 11/04/22 A[facility] - [facility] [address] [facility] [place] [address] Assigned PCP 07/05/23 12/31/23 documented as of this encounter
--- OUTSIDE RECORDS SUMMARY | 2024-04-03 07:13 | XMS_ITS | Encounter Summary ---
Author Organization [place] Address [address] [place] [address] Care Team Providers Care Christmas Tree Contractor Name Role Phone Noreen Flores APRN, CNP Unavailable Noreen Flores APRN, CNP Primary Car e Provider Kalyan Galvan Unavailable Unavailable Lashae Trevino [facility] Unavailable [phone] Eduardo Sharma MD Unavailable Rios Monteiro MD Unavailable Marcelo Artis PA-C Unavailable [phone] Rodrigo Man PA-C Unavailable [phone] Noreen Flores APRN, CNP Unavailable Sudha Greene NP Primary Care Provider Agatha Null DPM, Podiatry /Foot and Ankle Surgery Unavailable [facility] Unavailable Reason for Visit * Reason Onset Date Comments Refill Request 05/29/2020 omeprazole (PRIL OSEC) [address] capsule Encounter Details Date Type Department Care Team (Late st Contact Info) Description 05/29/2020 Refill M [facility] [address] [facility] [address] [place] [address] Noreen Flores APRN CNP [address] [facility] [address] Refill Request (omeprazole (PRILOSEC) [address] [...] Friends and Family Patient declined 08/08/2019 Attends [employer] Patient declined 07/13 Active Member of [...] Recorded PHQ-2 Score 2 07/25/2018 [facility] [place] of Occupat ional Health - Occupational Stress [...] on file Legal Sex Female 3:19 AM HAND METHOD LASTING MACHINE OPERATOR Gender Identity Female 08/26/2020 9:05 PM CDT Sexual Orientation Not on file 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 Keyona Palacios - Registered Nurse [facility] Acute and Diagnostic Services METHOD LASTING MACHINE OPERATOR * Telephone Encounter - Kartik Javier - 05/29/2020 5:01 PM CST Alternative Requested: Insurance covers max 90 days in a year. Please submit PA to continue therapy. METHOD LASTING MACHINE OPERATOR documented in this encounter Plan [...] Contractor Relationship Specialty Start Date End Date Noreen Flores APRN CNP [address] [place] [address] [place] [address] PCP - General Nurse Practitioner 01/09/19 12/12/21 Sudha Greene NP [address] [address] PCP - General 11/01/22 Noreen Flores APRN WOOD BARKER [address] [facility] [place] [address] Assigned PCP 06/16/18 05/26/22 Kalyan Galvan Personal Advocate & Liaison (PAL) 08/08/19 04/26/21 Lashae Trevino, [facility] [place] [id number] Pharmacist Pharmacist 10/14/19 12/01/20 Eduardo Sharma MD [address] [place], [place] [address] Assigned Sleep Provider 04/02/2005/07 [place] [address] [place] [address] Assigned Musculoskeletal Provider 04/02/20 08/24/20 Marcelo Artis PA-C [address] [place] [address] Assigned Musculoskeletal Provider 08/25/20 08/20/21 Rodrigo Man PA-C [address] [place] [address] Assigned Surgical Provider 08/25/20 11/27/20 Noreen Flores APRN WOOD BARKER [address] [place] [address] [place] [address] Assigned PCP 08/05/22 03/16/23 Agatha Null DPM, Podiatry/Foot and Ankle Surgery [address] [place] [address] Assigned Musculoskeletal Provider 11/04/22 [facility] - [facility] [address] [address] Assigned PCP 07/05/23 12/31/23 documented as of this encounter
--- OUTSIDE RECORDS SUMMARY | 2024-04-03 07:13 | XMS_ITS | Encounter Summary ---
Author Organization [place] Address [address] [place] [address] Care Team Providers Care Embossing Tool Setter Name Role Phone Noreen Flores APRN, CNP Unavailable Noreen Flores APRN, CNP Primary Car e Provider Kalyan Galvan Unavailable Unavailable Lashae Trevino [facility] Unavailable Eduardo Sharma MD Unavailable Rios Monteiro MD Unavailable [phone] Marcelo Artis PA-C Unavailable [phone] Rodrigo Man PA-C Unavailable [phone] Noreen Flores APRN, CNP Unavailable Sudha Greene NP Primary Care Provider Agatha Null DPM, Podiatry /Foot and Ankle Surgery Unavailable [facility] - [facility] Unavailable Reason for Visit * Reason Onset Date Comments Refill Request 08/08/2019 DULoxetine (CYMB EDIN) 30 MG capsule Encounter Details Date Type Department Care Team (Late st Contact Info) Description 08/08/2019 Refill M [facility] [address] [place] [address] Noreen Flores APRN CNP [address] [facility] [place] [address] Refill Request (DULoxetine (CYMBALTA) 30 MG capsule) [...] PHQ-2 Score 2 07/25/2018 [facility] [place] of Occupat ional Health - Occupational Stress [...] on file Legal Sex Female 3:19 AM IDENTIFICATION CLERK Gender Identity Female 08/26/2020 9:05 PM CDT Sexual Orientation Not on file 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 The Pt has been taking 1, 30 mg capsule, once per day. She does not want to goup to 60 mg. Yasmin sent this in for her. Radha Manning RN [facility] -- Triage Nurse TIFICATION CLERK * Telephone Encounter - Noreen Hills APRN CNP - 08/11/2019 9:41 AM CST Please verify that she was previously taking 1 tab twice a day. If so, please switch it to 1, 60mg tab, once per day. Pls notify her of the change. TIFICATION CLERK * Telephone Encounter - Gayathri Mcallister RN - 08/11/2019 9:38 AM IDENTIFICATION CLERK Please review sig for duloxetine, hydrochlorothiazide and metformin ( per review of last office visit 2000 mg daily of metformin, I am not sure about Duloxetine sig and dispense amount, Thank you) Gayathri Mcallister RN Message handled by Nurse Triage. TIFICATION CLERK * Telephone Encounter - Kartik Javier - 08/08/2019 5:46 PM CST Also Review Rx directions for Metformin hydrochloride 500 mg. Pharmacy is requesting clarification. TIFICATION CLERK * Telephone Encounter - Kartik Javier - 08/08/2019 2:39 PM CST Script Clarification: Rx has two sets of directions. Please send new Rx with the Proper Directions. Thanks. TIFICATION CLERK documented in this encounter Plan of [...] Total Score: 9 08/09/19 20 7:03 AM IDENTIFICATION CLERK documented as of this encounter Care Teams Embossing Tool Setter Relationship Specialty Start Date End Date Noreen Flores APRN CLINICAL APPLICATION CONSULTANT [address] [facility] [place] [address] PCP - General Nurse Practitioner 01/09/19 12/12/21 Sudha Greene NP [address] [address] PCP - General 11/01/22 Noreen Flores APRN CLINICAL APPLICATION CONSULTANT [address] [place] [address] [place] [address] Assigned PCP 06/16/18 05/26/22 Kalyan Galvan Personal Advocate & Liaison (PAL) 08/08/19 04/26/21 Lashae Trevino, [facility] [address] [place] [address] Pharmacist Pharmacist 10/14/19 12/01/20 Eduardo Sharma MD [address] [place] [address] Assigned Sleep Provider 04/02/2005/07 Rios Monteiro MD [address] [place] [address] 300 [place] [address] Assigned Musculoskeletal Provider 04/02/20 08/24/20 Marcelo Artis PA-C [id number] [place] [address] 300 [place] [address] Assigned Musculoskeletal Provider 08/25/20 08/20/21 Rodrigo Man PA-C [address] [place] [address] Assigned Surgical Provider 08/25/20 11/27/20 Noreen Flores APRN CLINICAL APPLICATION CONSULTANT [address] [place] [address] [place] [id number] Assigned PCP 08/05/22 03/16/23 Agatha Null, DPM, Podiatry/Foot and Ankle Surgery [address] [place] [address] [facility] [address] [place] [address] Assigned Musculoskeletal Provider 11/04/22 [facility] - [facility] [address] [facility] [place] [address] Assigned PCP 07/05/23 12/31/23 documented as of this encounter
--- OUTSIDE RECORDS SUMMARY | 2024-04-03 07:13 | XMS_ITS | Encounter Summary ---
Author Organization [place] Address [address] [place] [address] Care Team Providers Care Ground Crew Lines Person Name Role Phone Noreen Flores APRN FIELD ARTILLERY OFFICER Unavailable Noreen Flores APRN FIELD ARTILLERY OFFICER Primary Car e Provider Kalyan Galvan Unavailable Unavailable Lashae Trevino [facility] Unavailable [phone] Eduardo Sharma MD Unavailable Rios Monteiro MD Unavailable [phone] Marcelo Artis PA-C Unavailable [phone] Rodrigo Man PA-C Unavailable [phone] Noreen Flores APRN FIELD ARTILLERY OFFICER Unavailable Sudha Greene NP Primary Care Provider [phone] Agatha Null DPM, Podiatry /Foot and Ankle Surgery Unavailable Clinic - [facility] Unavailable Encounter Details Date Type Department Care Team (Late st Contact Info) Description 05/31/2019 [facility]ra [facility] [place] [address] [facility] [address] [place] [address] Noreen Flores APRN FIELD ARTILLERY OFFICER [address] [facility] [place] [address] Chronic seasonal allergic rhinitis [...] on file Legal Sex Female 3:19 AM REJOINER Gender Identity Female 08/26/2020 9:05 PM CDT Sexual Orientation Not on file 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 Routing to PCP for approval. Please sent via fax. Multiple attempts in the past year with unsuccessful e-scribing. Route back to [facility] when completed. - Radu Faria RN Triage [facility] INER documented in this encounter Plan of Treatment [...] as of this encounter Care Teams Ground Crew Lines Person Relationship Specialty Start Date End Date Noreen Flores APRN FIELD ARTILLERY OFFICER [address] [facility] [place] [address] PCP - General Nurse Practitioner 01/09/19 12/12/21 Sudha Greene NP [facility] & [address] [address] PCP - General 11/01/22 Noreen Flores APRN FIELD ARTILLERY OFFICER [address] [place] [address] [place] [address] Assigned PCP 06/16/18 05/26/22 Kalyan Galvan Personal Advocate & Liaison (PAL) 08/08/19 04/26/21 Lashae Trevino, [facility] [address] [place] [address] [place] [address] Pharmacist Pharmacist 10/14/19 12/01/20 Eduardo Sharma MD [address] [place] [address] Assigned Sleep Provider 04/02/2005/07 [place] [address] [place] [address] Assigned Musculoskeletal Provider 04/02/20 08/24/20 Marcelo Artis PA-C [address] [place] [address] Assigned Musculoskeletal Provider 08/25/20 08/20/21 Rodrigo Man PA-C [address] [place] [address] Assigned Surgical Provider 08/25/20 11/27/20 Noreen Flores APRN FIELD ARTILLERY OFFICER [address] [place] [address] [place] [address] Assigned PCP 08/05/22 03/16/23 Agatha Null DPM, Podiatry/Foot and Ankle Surgery [address] [place] [address] [place] [address] Assigned Musculoskeletal Provider 11/04/22 [facility] - [place] [address] [address] Assigned PCP 07/05/23 12/31/23 documented as of this encounter
--- OUTSIDE RECORDS SUMMARY | 2024-04-03 07:14 | XMS_ITS | Encounter Summary ---
Author Organization [place] Address [address] [place] [address] Care Team Providers Care Cloth Bleaching Range Tender Name Role Phone Selma Good APRN DIRECTOR OF PEOPLE Primary Care Pro vider Vanda Guerrero MD Primary Care Provider [phone] Vanda Guerrero MD Unavailable [phone] Jeana-JdNoreen castro APRN, CNP Unavailable Jeana-JdNoreen castro APRN, CNP Unavailable JeanaNoreen Garcia APRN, CNP Primary Car e Provider Kalyan Galvan Unavailable Unavailable Lashae Trevino [facility] Unavailable [phone] Eduardo Sharma MD Unavailable Rios Monteiro MD Unavailable [phone] Marcelo Artis PA-C Unavailable [phone] Rodrigo ManC Unavailable [phone] Jeana-Noreen Miles APRN DIRECTOR OF PEOPLE Unavailable Sudha Greene NP Primary Care Provider [phone] Agatha NullM, Podiatry /Foot and Ankle Surgery Unavailable [facility] Unavailable Reason for Visit * Reason Onset Date Comments Medication Dosage Adjustment 08/18/2013 dec rease Metformin Encounter Details Date Type Department Care Team (Late st Contact Info) Description 08/18/2013 [facility] [address] [place] [address] [place] [phone] Selma Good, CYBER INTELLIGENCE ANALYST DIRECTOR OF PEOPLE [address] [facility] [place] [address] Medication Dosage Adjustment (decrease Met... 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 I updated the medication list [...] as of this encounter Care Teams Cloth Bleaching Range Tender Relationship Specialty Start Date End Date Selma Good APRN DIRECTOR OF PEOPLE [address] [facility] [place] [address] PCP - General 04/09/08 04/07/15 Vanda Guerrero MD [address] [place] [address] [place] [address] PCP - General Internal Medicine 04/08/15 01/08/19 Vanda Guerrero MD [address] [place] [address] [place] [address] PCP - Assigned PCP 07/24/16 06/15/18 Noreen Flores APRN DIRECTOR OF PEOPLE [address] [place] [address] [place] [address] PCP - Assigned PCP 06/16/18 08/13/18 Noreen Flores APRN DIRECTOR OF PEOPLE [address] [place] [address] [place] [address] PCP - General Nurse Practitioner 01/09/19 12/12/21 Sudha Greene, [place] [address] [address] PCP - General 11/01/22 Noreen Flores APRN DIRECTOR OF PEOPLE [address] [place] [address] [place] [address] Assigned PCP 06/16/18 05/26/22 Kalyan Galvan Personal Advocate & Liaison (PAL) 08/08/19 04/26/21 Lashae Trevino, [facility] [address] [place] [address] Pharmacist Pharmacist 10/14/19 12/01/20 Eduardo Sharma MD [address] [place] [address] Assigned Sleep Provider 04/02/2005/07 [place] [id number] [place] [address] 300 [place] [address] Assigned Musculoskeletal Provider 04/02/20 08/24/20 Marcelo Artis PA-C [id number] [place] [address] 300 [place] [address] Assigned Musculoskeletal Provider 08/25/20 08/20/21 Rodrigo Man PA-C [address] [place] [address] Assigned Surgical Provider 08/25/20 11/27/20 Noreen Flores APRN DIRECTOR OF PEOPLE [address] [place] [address] [place] [address] Assigned PCP 08/05/22 03/16/23 Agatha Null DPM, Podiatry/Foot and Ankle Surgery [address] [place] [address] [address] [place] [address] Assigned Musculoskeletal Provider 11/04/22 [facility] - [facility] [address] [place] [address] Assigned PCP 07/05/23 12/31/23 documented as of this encounter
--- OUTSIDE RECORDS SUMMARY | 2024-04-03 07:14 | XMS_ITS | Encounter Summary ---
Author Organization [facility] [facility] Address [address] [place] [address] Care Team Providers Care Filter Operator Name Role Phone Selma Good APRN BUSINESS DEVELOPMENT ENGINEER Primary Care Pro vider Vanda Guerrero MD Primary Care Provider [phone] Vanda Guerrero MD Unavailable [phone] Jeana-JdNoreen castro APRN, CNP Unavailable Jeana-JdNoreen castro APRN, CNP Unavailable JeanaNoreen Garcia APRN, CNP Primary Car e Provider Kalyan Galvan Unavailable Unavailable Lashae Trevino [facility] Unavailable [phone] Eduardo Sharma MD Unavailable Rios Monteiro MD Unavailable [phone] Marcelo Artis PA-C Unavailable [phone] Rodrigo ManC Unavailable [phone] Jeana-Noreen Miles APRN BUSINESS DEVELOPMENT ENGINEER Unavailable Sudha Greene NP Primary Care Provider [phone] Agatha NullM, Podiatry /Foot and Ankle Surgery Unavailable [facility] Unavailable Reason for Visit * Reason Onset Date Comments Foot Problems 03/19/2014 numb Encounter Details Date Type Department Care Team (Late st Contact Info) Description 03/19/2014 MyC Medical Advice [address] [place] [address] Selma Good APRN BUSINESS DEVELOPMENT ENGINEER [address] [place] [address] [place] [address] Foot Problems (numb) Social History Tobacco Use Types Packs/Day Years Used Date Smoking Tobacco: Never Smokeless Tobacco: Never Alcohol Use Standard Drinks/Week Comments Yes 0 (1 standard drink = 0.6 oz pur e alcohol) Rare Comments No Sex and Gender Information Value Date Recorded Sex Assigned at Not on file Legal Sex Female 3:19 AM REPORTING MANAGER Gender Identity Female 08/26/2020 9:05 PM [...] documented as of this encounter Care Teams Filter Operator Relationship Specialty Start Date End Date Selma Good, SEAN BUSINESS DEVELOPMENT ENGINEER [address] [place] [address] [place] [address] PCP - General 04/09/08 04/07/15 Vanda Guerrero MD [address] [place] [address] [place] [address] PCP - General Internal Medicine 04/08/15 01/08/19 Vanda Guerrero MD [address] [place] [address] [place] [address] PCP - Assigned PCP 07/24/16 06/15/18 Noreen Flores APRN BUSINESS DEVELOPMENT ENGINEER [address] [place] [address] [place] [address] PCP - Assigned PCP 06/16/18 08/13/18 Noreen Flores APRN BUSINESS DEVELOPMENT ENGINEER [address] [place] [address] [place] [address] PCP - General Nurse Practitioner 01/09/19 12/12/21 Sudha Greene NP [address] [address] PCP - General 11/01/22 Noreen Flores APRN BUSINESS DEVELOPMENT ENGINEER [address] [place] [address] [place] [address] Assigned PCP 06/16/18 05/26/22 Kalyan Galvan Personal Advocate & Liaison (PAL) 08/08/19 04/26/21 Lashae Trevino [facility] 14[address] [facility] [place] [address] Pharmacist Pharmacist 10/14/19 12/01/20 Eduardo Sharma MD [address] [facility] [address] [place] [id number] Assigned Sleep Provider 04/02/2005/07 [place] [address] [facility] [address] [place] [address] Assigned Musculoskeletal Provider 04/02/20 08/24/20 Marcelo Artis PA-C [address] [facility] [address] [place] [address] Assigned Musculoskeletal Provider 08/25/20 08/20/21 Rodrigo Man PA-C [address] [facility] 450 [place] [address] Assigned Surgical Provider 08/25/20 11/27/20 Noreen Flores APRN BUSINESS DEVELOPMENT ENGINEER [address] [place] [address] [place] [address] Assigned PCP 08/05/22 03/16/23 Agatha Null DPM, Podiatry/Foot and Ankle Surgery [address] [facility] 300 [place] [address] Assigned Musculoskeletal Provider 11/04/22 Aly - [place]ita [place] [facility] [address] [place] [address] [place] [address] Assigned PCP 07/05/23 12/31/23 documented as of this encounter
--- OUTSIDE RECORDS SUMMARY | 2024-04-03 07:14 | XMS_ITS | Encounter Summary ---
Author Organization [place] Address [address] [place] [address] Care Team Providers Care Billet Assembler Name Role Phone Selma Good APRN DATA COMMUNICATIONS SOFTWARE CONSULTANT Primary Care Pro vider Vanda Guerrero MD Primary Care Provider [phone] Vanda Guerrero MD Unavailable [phone] Jeana-JdNoreen castro APRN DATA COMMUNICATIONS SOFTWARE CONSULTANT Unavailable Jeana-JdNoreen castro APRN, CNP Unavailable JeanaNoreen Garcia APRN DATA COMMUNICATIONS SOFTWARE CONSULTANT Primary Car e Provider Kalyan Galvan Unavailable Unavailable Lashae Trevino [facility] Unavailable [phone] Eduardo Sharma MD Unavailable Rios Monteiro MD Unavailable [phone] Marcelo Artis PA-C Unavailable [phone] Rodrigo Man PA-C Unavailable [phone] Jeana-Noreen Miles APRN DATA COMMUNICATIONS SOFTWARE CONSULTANT Unavailable Sudha Greene NP Primary Care Provider [phone] Agatha NullM, Podiatry /Foot and Ankle Surgery Unavailable [facility] Unavailable Encounter Details Date Type Department Care Team (Late st Contact Info) Description 08/17/2014 MyC Medical Advice [facility] [id number] [place] [address] Day Greene APRN DATA COMMUNICATIONS SOFTWARE CONSULTANT [address] [place] [address] [address] [place] [address] Social History Tobacco Use Types Packs/Day Years Used Date Smoking Tobacco: Never Smokeless Tobacco: Never Alcohol Use Standard Drinks/Week Comments Yes 0 (1 standard drink = 0.6 oz pur e alcohol) Rare Comments No Sex and Gender Information Value Date Recorded Sex Assigned at Not on file Legal Sex Female 3:19 AM FOOD STAND MANAGER Gender Identity Female 08/26/2020 9:05 PM [...] as of this encounter Care Teams Billet Assembler Relationship Specialty Start Date End Date Selma Good APRN DATA COMMUNICATIONS SOFTWARE CONSULTANT [address] [place] [address] [place] [address] PCP - General 04/09/08 04/07/15 Vanda Guerrero MD [address] [place] [address] [place] [address] PCP - General Internal Medicine 04/08/15 01/08/19 Vanda Guerrero MD [address] [place] [address] [place] [address] PCP - Assigned PCP 07/24/16 06/15/18 Noreen Flores APRN DATA COMMUNICATIONS SOFTWARE CONSULTANT [address] [place] [address] [place] [id number] PCP - Assigned PCP 06/16/18 08/13/18 Noreen Flores APRN DATA COMMUNICATIONS SOFTWARE CONSULTANT [address] [place] [address] [place] [address] PCP - General Nurse Practitioner 01/09/19 12/12/21 Sudha Greene, MAURICIO [address] [address] PCP - General 11/01/22 Noreen Flores APRN DATA COMMUNICATIONS SOFTWARE CONSULTANT [address] [place] [address] [place] [address] Assigned PCP 06/16/18 05/26/22 Kalyan Galvan Personal Advocate & Liaison (PAL) 08/08/19 04/26/21 Lashae Trevino, [facility] 1440 [facility] [place] [address] Pharmacist Pharmacist 10/14/19 12/01/20 Eduardo Sharma MD [address] [facility] 103 [place] [address] Assigned Sleep Provider 04/02/2005/07 [place] [address] [facility] 300 [place] [address] Assigned Musculoskeletal Provider 04/02/20 08/24/20 Marcelo Artis, PA-C [address] [facility] 300 [place] [address] Assigned Musculoskeletal Provider 08/25/20 08/20/21 Rodrigo Man PA-C [address] 450 [place] [address] Assigned Surgical Provider 08/25/20 11/27/20 Nroeen Flores APRN DATA COMMUNICATIONS SOFTWARE CONSULTANT 3305 [facility] [place] [address] Assigned PCP 08/05/22 03/16/23 Agatha Null DPM, Podiatry/Foot and Ankle Surgery [address] [facility] [address] [place] [address] Assigned Musculoskeletal Provider 11/04/22 [facility] [place] [facility] 3[address] [facility] [place] [id number] Assigned PCP 07/05/23 12/31/23 documented as of this encounter
--- OUTSIDE RECORDS SUMMARY | 2024-04-03 07:14 | XMS_ITS | Encounter Summary ---
Author Organization [place] Address [address] [place] [address] Care Team Providers Care Heel Pricker Name Role Phone Vanda Guerrero MD Primary Care Provider [phone] Vanda Guerrero MD Unavailable [phone] Jeana-JdNoreen castro APRN LITHOGRAPHIC PLATE MAKER APPRENTICE Unavailable [facility] Miles APRN LITHOGRAPHIC PLATE MAKER APPRENTICE Unavailable [facility]-JdNoreen castro MANAGER MANUFACTURING LITHOGRAPHIC PLATE MAKER APPRENTICE Primary Car e Provider Kalyan Galvan Unavailable Unavailable Lashae Trevino [facility] Unavailable Eduardo Sharma MD Unavailable Rios Monteiro MD Unavailable [phone] Marcelo ArtisC Unavailable [phone] Rodrigo Man-C Unavailable [phone] Jeana-Noreen Miles APRN LITHOGRAPHIC PLATE MAKER APPRENTICE Unavailable Sudha Greene NP Primary Care Provider Agatha Null DPM, Podiatry /Foot and Ankle Surgery Unavailable [facility] Unavailable Reason for Referral * Consultation - Closed Specialty Diagnoses / Procedures Referred By Rylie t Referred To Contact Diagnoses Cervicalgia History of lumbar fusion History of fusion of cervical spine Vanda Guerrero MD [address] [facility] [place] [address] Phone: tel: fax: [facility] [address] [facility] [address] [place] [address] Phone: tel: fax: Referral ID Status Reason Start Date Expiration Date Visits Re quested Visits Authorized [id number] Closed 04/27/2015 04/26/2016 1 1 Comments [facility] is referring you to the Orthopedic Diamond Powder Mixer Services at [facility]. The Diamond Powder Mixer Hot Car Charger will assist you in the coordination of your Orthopedic and Musculoskeletal Care as prescribed by your physician. The Diamond Powder Mixer Hot Car Charger will call you within 24 hours to help schedule your appointment, or you may contact the Diamond Powder Mixer Hot Car Charger at: [facility] ~ [facility] ~ [facility] ~ Type of Referral : Spine: Cervical / Thoracic: Medical Associate Director Timeframe requested: Routine Coverage of these services is subject to the terms and limitations of your health insurance plan. Please call member services at your health plan with any benefit or coverage questions. If X-rays, CT or MRI's have been performed, please contact the facility where they were done to arrange for picket labor union, prior to your scheduled appointment. Please bring this referral request to your appointment and present it to your specialist. STRIAL SAFETY AND HEALTH MANAGER Reason for Visit * Reason Onset Date Comments Leg Pain 04/27/2015 Encounter Details Date Type Department Care Team (Late st Contact Info) Description 04/27/2015 MyC Medical Advice [facility] 1440 [facility] [place] [address] Vanda Guerrero MD [address] [facility] [place] [address] Leg Pain Social History Tobacco Use Types Packs/Day Years Used Date Smoking Tobacco: Never Smokeless Tobacco: Never Alcohol Use Standard Drinks/Week Comments Yes 0 (1 standard drink = 0.6 oz pur e alcohol) Rare Comments No Sex and Gender Information Value Date Recorded Sex Assigned at Not on file Legal Sex Female 3:19 AM INDUSTRIAL SAFETY AND HEALTH MANAGER Gender Identity Female 08/26/2020 9:05 PM CDT Sexual Orientation Not on file 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 STRIAL SAFETY AND HEALTH MANAGER * Telephone Encounter - Vanda Guerrero MD - 04/27/2015 3:16 PM INDUSTRIAL SAFETY AND HEALTH MANAGER Recommend FSOC evaluation in the next 1-2 weeks. STRIAL SAFETY AND HEALTH MANAGER * Telephone Encounter - Kallie Mishra RN - 04/27/2015 3:14 PM INDUSTRIAL SAFETY AND HEALTH MANAGER Would you recommend re-evaluation due to new symptoms? STRIAL SAFETY AND HEALTH MANAGER documented in this encounter Plan of [...] as of this encounter Care Teams Heel Pricker Relationship Specialty Start Date End Date Vanda Guerrero MD [address] [place] [address] [place] [address] PCP - General Internal Medicine 04/08/15 01/08/19 [place] [address] [place] [address] [place] [address] PCP - Assigned PCP 07/24/16 06/15/18 Noreen Flores APRN LITHOGRAPHIC PLATE MAKER APPRENTICE [address] [place] [address] [place] [address] PCP - Assigned PCP 06/16/18 08/13/18 Noreen Flores APRN LITHOGRAPHIC PLATE MAKER APPRENTICE [address] [place] [address] [place] [address] PCP - General Nurse Practitioner 01/09/19 12/12/21 Sudha Greene NP [address] [address] PCP - General 11/01/22 Noreen Flores APRN LITHOGRAPHIC PLATE MAKER APPRENTICE [address] [place] [address] [place] [address] Assigned PCP 06/16/18 05/26/22 Kalyan Galvan Personal Advocate & Liaison (PAL) 08/08/19 04/26/21 [facility] [address] [place] [address] Pharmacist Pharmacist 10/14/19 12/01/20 Eduardo Sharma MD [address]ARC[address] [place] [address] [place] [address] Assigned Sleep Provider 04/02/2005/07 Rios Monteiro MD [address] [place] [address] [place] [address] Assigned Musculoskeletal Provider 04/02/20 08/24/20 Marcelo Artis PA-C [address] [place] [address] [place] [address] Assigned Musculoskeletal Provider 08/25/20 08/20/21 Rodrigo Man PA-C [address] [facility] 450 [place] [address] Assigned Surgical Provider 08/25/20 11/27/20 Noreen Flores APRN LITHOGRAPHIC PLATE MAKER APPRENTICE [address] [place] [address] [place] [address] Assigned PCP 08/05/22 03/16/23 Agatha Null DPM, Podiatry/Foot and Ankle Surgery [address] [place] [address] 300 [place] [address] Assigned Musculoskeletal Provider 11/04/22 [facility] [place] [facility] 3305 [facility] [place] [address] Assigned PCP 07/05/23 12/31/23 documented as of this encounter
--- OUTSIDE RECORDS SUMMARY | 2024-04-03 07:14 | XMS_ITS | Encounter Summary ---
Author Organization [facility] Address [address] [place] [address] Care Team Providers Care Labeling Specialist Name Role Phone Selma Good APRN PARALEGAL ASSISTANT Primary Care Pro vider Vanda Guerrero MD Primary Care Provider [phone] Vanda Guerrero MD Unavailable [phone] Jeana-JdNoreen castro APRN, CNP Unavailable Jeana-JdNoreen castro APRN, CNP Unavailable JeanaNoreen Garcia APRN, CNP Primary Car e Provider Kalyan Galvan Unavailable Unavailable Lashae Trevino [facility] Unavailable [phone] Eduardo Sharma MD Unavailable Rios Monteiro MD Unavailable [phone] Marcelo Artis PA-C Unavailable [phone] Rodrigo ManC Unavailable [phone] Jeana-Noreen Miles APRN PARALEGAL ASSISTANT Unavailable Sudha Greene NP Primary Care Provider [phone] Agatha NullM, Podiatry /Foot and Ankle Surgery Unavailable [facility] Unavailable Reason for Visit * Reason Onset Date Comments Medication Problem 06/22/2014 amitriptline side effects Encounter Details Date Type Department Care Team (Late st Contact Info) Description 06/22/2014 [facility] [address] [place] [address] [place] [address] Selma Good APRN PARALEGAL ASSISTANT [address] [place] [address] [place] [address] Medication Problem (amitriptline side effe... Social History Tobacco Use Types Packs/Day Years Used Date Smoking Tobacco: Never Smokeless Tobacco: Never Alcohol Use Standard Drinks/Week Comments Yes 0 (1 standard drink = 0.6 oz pur e alcohol) Rare Comments No Sex and Gender Information Value Date Recorded Sex Assigned at Not on file Legal Sex Female 3:19 AM INFORMATICA ARCHITECT Gender Identity Female 08/26/2020 9:05 PM CDT [...] as of this encounter Care Teams Labeling Specialist Relationship Specialty Start Date End Date Selma Good, SEAN PARALEGAL ASSISTANT [address] [place] [address] [place] [address] PCP - General 04/09/08 04/07/15 Vanda Guerrero MD [address] [place] [address] [place] [address] PCP - General Internal Medicine 04/08/15 01/08/19 Vanda Guerrero MD [address] [place] [address] [place] [address] PCP - Assigned PCP 07/24/16 06/15/18 Noreen Flores APRN PARALEGAL ASSISTANT [address] [place] [address] [place] [address] PCP - Assigned PCP 06/16/18 08/13/18 Noreen Flores APRN PARALEGAL ASSISTANT [address] [place] [address] [place] [address] PCP - General Nurse Practitioner 01/09/19 12/12/21 Sudha Greene, MAURICIO [address] [address] PCP - General 11/01/22 Noreen Flores APRN PARALEGAL ASSISTANT [address] [place] [address] [place] [address] Assigned PCP 06/16/18 05/26/22 Kalyan Galvan Personal Advocate & Liaison (PAL) 08/08/19 04/26/21 [facility] 1440 [facility] [place] [id number] Pharmacist Pharmacist 10/14/19 12/01/20 Eduardo Sharma MD [address] GARC[address] [facility] 103 [place] [id number] Assigned Sleep Provider 04/02/2005/07 [place] [address] [facility] 300 [place] [address] Assigned Musculoskeletal Provider 04/02/20 08/24/20 Marcelo Artis PA-C [address] [facility] 300 [place] [address] Assigned Musculoskeletal Provider 08/25/20 08/20/21 Rodrigo Man PA-C [address] [address] Assigned Surgical Provider 08/25/20 11/27/20 Noreen Flores APRN CNP [address] [place] [address] [place] [address] Assigned PCP 08/05/22 03/16/23 Agatha Null DPM, Podiatry/Foot and Ankle Surgery [address] [facility] 300 [place] [address] Assigned Musculoskeletal Provider 11/04/22 [facility] [place] [facility] 3305 [facility] [place] [address] Assigned PCP 07/05/23 12/31/23 documented as of this encounter
--- OUTSIDE RECORDS SUMMARY | 2024-04-03 07:14 | XMS_ITS | Encounter Summary ---
Author Organization [facility] Address [address] [place] [address] Care Team Providers Care Mid Level Developer Name Role Phone Vanda Guerrero MD Primary Care Provider [phone] Vanda Guerrero MD Unavailable [phone] Jeana-Noreen Miles APRN SWITCH OPERATORS SUPERVISOR Unavailable [facility] APRN SWITCH OPERATORS SUPERVISOR Unavailable [facility] MANAGER OF DIGITAL SWITCH OPERATORS SUPERVISOR Primary Car e Provider Kalyan Galvan Unavailable Unavailable Lashae Trevino [facility] Unavailable [phone] Eduardo Sharma MD Unavailable Rios Monteiro MD Unavailable Marcelo Artis PA-C Unavailable [phone] Rodrigo ManC Unavailable Jeana-Noreen Miles APRN SWITCH OPERATORS SUPERVISOR Unavailable Sudha Greene NP Primary Care Provider Agatha Null DPM, Podiatry /Foot and Ankle Surgery Unavailable [facility] [place] [facility] Unavailable Reason for Visit * Reason Onset Date Comments Derm Problem 01/20/2016 Encounter Details Date Type Department Care Team (Late st Contact Info) Description 01/20/2016 [facility] [place] [phone] Vanda Guerrero MD [address] [place] [address] [place] [address] Derm Problem Social History Tobacco Use Types Packs/Day Years Used Date Smoking Tobacco: Never Smokeless Tobacco: Never Alcohol Use Standard Drinks/Week Comments Yes 0 (1 standard drink = 0.6 oz pur e alcohol) Rare Comments No Sex and Gender Information Value Date Recorded Sex Assigned at Not on file Legal Sex Female 3:19 AM TALENT PARTNER Gender Identity Female 08/26/2020 9:05 PM CDT [...] documented as of this encounter Care Teams Mid Level Developer Relationship Specialty Start Date End Date Vanda Guerrero MD [address] [place] [address] [place] [address] PCP - General Internal Medicine 04/08/15 01/08/19 Vanda Guerrero MD [address] [place] [address] [place] [address] PCP - Assigned PCP 07/24/16 06/15/18 Noreen Flores APRN SWITCH OPERATORS SUPERVISOR [address] [place] [address] [place] [address] PCP - Assigned PCP 06/16/18 08/13/18 Noreen Flores APRN SWITCH OPERATORS SUPERVISOR [address] [place] [address] [place] [address] PCP - General Nurse Practitioner 01/09/19 12/12/21 Sudha Greene, MAURICIO [address] [address] PCP - General 11/01/22 Noreen Flores APRN SWITCH OPERATORS SUPERVISOR [address] [place] [address] [place] [address] Assigned PCP 06/16/18 05/26/22 Kalyan Galvan Personal Advocate & Liaison (PAL) 08/08/19 04/26/21 [facility] 1440 [facility] [place] [address] Pharmacist Pharmacist 10/14/19 12/01/20 Eduardo Sharma MD [address] [address] Assigned Sleep Provider 04/02/2005/07 [place] [address] [facility] [place] 300 [place] [address] Assigned Musculoskeletal Provider 04/02/20 08/24/20 Marcelo Artis, PA-C [address] [facility] [place] 300 [place] [address] Assigned Musculoskeletal Provider 08/25/20 08/20/21 Rodrigo Man PA-C [address] [place] [address] [place] [address] Assigned Surgical Provider 08/25/20 11/27/20 Noreen Flores APRN SWITCH OPERATORS SUPERVISOR [address] [facility] [place] [address] Assigned PCP 08/05/22 03/16/23 Agatha Null DPM, Podiatry/Foot and Ankle Surgery [address] [place] [address] [place] [id number] Assigned Musculoskeletal Provider 11/04/22 [facility] [place] [facility] 3305 [facility] [place] [address] Assigned PCP 07/05/23 12/31/23 documented as of this encounter
--- OUTSIDE RECORDS SUMMARY | 2024-04-03 07:14 | XMS_ITS | Encounter Summary ---
Author Organization [place] Address [address] [place] [address] Care Team Providers Care Building Maintenance Technician Name Role Phone Selma Good APRN GROUND WOOD SUPERVISOR Primary Care Pro vider Vanda Guerrero MD Primary Care Provider [phone] Vanda Guerrero MD Unavailable [phone] Jeana-JdNoreen castro APRN GROUND WOOD SUPERVISOR Unavailable Jeana-JdNoreen castro APRN, CNP Unavailable JeanaNoreen Garcia APRN GROUND WOOD SUPERVISOR Primary Car e Provider Kalyan Galvan Unavailable Unavailable Lashae Trevino [facility] Unavailable [phone] Eduardo Sharma MD Unavailable Rios Monteiro MD Unavailable [phone] Marcelo Artis PA-C Unavailable [phone] Rodrigo Man PA-C Unavailable [phone] Jeana-Noreen Miles APRN GROUND WOOD SUPERVISOR Unavailable Sudha Greene NP Primary Care Provider Agatha NullM, Podiatry /Foot and Ankle Surgery Unavailable [facility] Unavailable Encounter Details Date Type Department Care Team (Late st Contact Info) Description 09/24/2014 [facility] [place] [address] Shante Joya, RERE Social History Tobacco Use Types Packs/Day Years Used Date Smoking Tobacco: Never Smokeless Tobacco: Never Alcohol Use Standard Drinks/Week Comments Yes 0 (1 standard drink = 0.6 oz pur e alcohol) Rare Comments No Sex and Gender Information Value Date Recorded Sex Assigned at Not on file Legal Sex Female 3:19 AM DIRECTOR SMB SALES Gender Identity Female 08/26/2020 9:05 PM CDT [...] as of this encounter Care Teams Building Maintenance Technician Relationship Specialty Start Date End Date Selma Good APRN GROUND WOOD SUPERVISOR [address] [place] [address] [place] [address] PCP - General 04/09/08 04/07/15 Vanda Guerrero MD [address] [place] [address] [place] [address] PCP - General Internal Medicine 04/08/15 01/08/19 Vanda Guerrero MD [address] [place] [address] [place] [address] PCP - Assigned PCP 07/24/16 06/15/18 Noreen Flores APRN GROUND WOOD SUPERVISOR [address] [place] [address] [place] [address] PCP - Assigned PCP 06/16/18 08/13/18 Noreen Flores APRN GROUND WOOD SUPERVISOR [address] [place] [address] [place] [address] PCP - General Nurse Practitioner 01/09/19 12/12/21 Sudha Greene, MAURICIO [address] [address] PCP - General 11/01/22 Noreen Flores APRN GROUND WOOD SUPERVISOR [address] [place] [address] [place] [address] Assigned PCP 06/16/18 05/26/22 Kalyan Galvan Personal Advocate & Liaison (PAL) 08/08/19 04/26/21 [facility] [place] [phone] Pharmacist Pharmacist 10/14/19 12/01/20 Eduardo Sharma MD [address] [facility] [address] [place] [address] Assigned Sleep Provider 04/02/2005/07 [place] [address] [place] [address] [place] [address] Assigned Musculoskeletal Provider 04/02/20 08/24/20 Marcelo Artis, PARejiC [address] [place] [address] [place] [address] Assigned Musculoskeletal Provider 08/25/20 08/20/21 Rodrigo Man PA-C [address] [place] [address] Assigned Surgical Provider 08/25/20 11/27/20 Noreen Flores APRN GROUND WOOD SUPERVISOR [address] [facility] [place] [address] Assigned PCP 08/05/22 03/16/23 Agatha Null DPM, Podiatry/Foot and Ankle Surgery [address] [place] [address] Assigned Musculoskeletal Provider 11/04/22 [facility] [place] [facility] [address] [facility] [place] [address] Assigned PCP 07/05/23 12/31/23 documented as of this encounter
--- OUTSIDE RECORDS SUMMARY | 2024-04-03 07:14 | XMS_ITS | Encounter Summary ---
Author Organization [place] Address [address] [place] [address] Care Team Providers Care Delivery Of Shopping News Name Role Phone Vanda Guerrero MD Primary Care Provider [phone] Vanda Guerrero MD Unavailable [phone] Jeana-Noreen Miles APRN CHICKEN DRESSER Unavailable [facility]-Noreen Miles APRN CHICKEN DRESSER Unavailable [facility]-JdNoreen castro CONDENSER TUBE TENDER CHICKEN DRESSER Primary Car e Provider Kalyan Galvan Unavailable Unavailable Lashae Trevino [facility] Unavailable [phone] Eduardo Sharma MD Unavailable Rios Monteiro MD Unavailable [phone] Marcelo Artis PA-C Unavailable Rodrigo ManC Unavailable Jeana-Noreen Miles APRN CHICKEN DRESSER Unavailable Sudha Greene NP Primary Care Provider Agatha Null DPM, Podiatry /Foot and Ankle Surgery Unavailable [facility] [place] [facility] Unavailable Reason for Visit * Reason Onset Date Comments Refill Request 08/30/2016 Metformin 500mg tab Encounter Details Date Type Department Care Team (Late st Contact Info) Description 08/30/2016 Refill [facility] [place] [address] [place] [address] Vanda Guerrero MD [address] [facility] [place] [address] Refill Request (Metformin 500mg tab) Social History Tobacco Use Types Packs/Day Years Used Date Smoking Tobacco: Never Smokeless Tobacco: Never Alcohol Use Standard Drinks/Week Comments Yes 0 (1 standard drink = 0.6 oz pur e alcohol) Rare Comments No Sex and Gender Information Value Date Recorded Sex Assigned at Not on file Legal Sex Female 3:19 AM OLERICULTURE PROFESSOR Gender Identity Female 08/26/2020 9:05 PM CDT [...] Last Office Visit with [facility], [facility] or [facility] prescribing provider: 06/01/16 BP Readings from [...] Total Score: 11 05/02/ 016 7:09 AM OLERICULTURE PROFESSOR documented as of this encounter Care Teams Delivery Of Shopping News Relationship Specialty Start Date End Date Vanda Guerrero MD [address] [place] [address] [place] [address] PCP - General Internal Medicine 04/08/15 01/08/19 Vanda Guerrero MD [address] [place] [address] [place] [address] PCP - Assigned PCP 07/24/16 06/15/18 Noreen Flores APRN CHICKEN DRESSER [address] [place] [address] [place] [address] PCP - Assigned PCP 06/16/18 08/13/18 Noreen Flores APRN CHICKEN DRESSER [address] [place] [address] [place] [address] PCP - General Nurse Practitioner 01/09/19 12/12/21 Sudha Greene NP [address] [address] PCP - General 11/01/22 Noreen Flores APRN CHICKEN DRESSER [address] [place] [address] [place] [address] Assigned PCP 06/16/18 05/26/22 Kalyan Galvan Personal Advocate & Liaison (PAL) 08/08/19 04/26/21 Lashae Trevino, [facility] [address] [place] [address] Pharmacist Pharmacist 10/14/19 12/01/20 Eduardo Sharma MD [address] [place] [place] [address] Assigned Sleep Provider 04/02/2005/07 [place] [address] [facility] [address] [place] [address] Assigned Musculoskeletal Provider 04/02/20 08/24/20 Marcelo Artis PA-C [id number] [place] [address] 300 [place] [address] Assigned Musculoskeletal Provider 08/25/20 08/20/21 Rodrigo Man PA-C [address] [place] [place] [address] Assigned Surgical Provider 08/25/20 11/27/20 Noreen Flores APRN CHICKEN DRESSER [address] [place] [address] [place] [address] Assigned PCP 08/05/22 03/16/23 Agatha Null DPM, Podiatry/Foot and Ankle Surgery [address] [place] [address] [address] [place] [address] Assigned Musculoskeletal Provider 11/04/22 [facility] [place] [facility] [address] [facility] [place] [address] Assigned PCP 07/05/23 12/31/23 documented as of this encounter
--- OUTSIDE RECORDS SUMMARY | 2024-04-03 07:14 | XMS_ITS | Encounter Summary ---
Author Organization [place] Address [address] [place] [address] Care Team Providers Care Marklogic Developer Name Role Phone Vanda Guerrero MD Primary Care Provider [phone] Vanda Guerrero MD Unavailable [phone] Jeana-Noreen Miles APRN CINDER CRUSHER OPERATOR Unavailable [facility]-Noreen Miles APRN CINDER CRUSHER OPERATOR Unavailable [facility]-JdNoreen castro SURGICAL INSTRUMENT TECHNICIAN CINDER CRUSHER OPERATOR Primary Car e Provider Kalyan Galvan Unavailable Unavailable Lashae Trevino [facility] Unavailable Eduardo Sharma MD Unavailable Rios Monteiro MD Unavailable [phone] Marcelo Artis PA-C Unavailable [phone] Rodrigo ManC Unavailable Jeana-Noreen Miles APRN CINDER CRUSHER OPERATOR Unavailable Sudha Greene NP Primary Care Provider [phone] Agatha Null DPM, Podiatry /Foot and Ankle Surgery Unavailable [facility] [place] [facility] Unavailable Reason for Visit * Reason Onset Date Comments Appointment 11/30/2016 reminder Encounter Details Date Type Department Care Team (Late st Contact Info) Description 11/30/2016 MyC Medical Advice [facility] [place] [address] [place] [id number] Kallie Celaya, RN Appointment (reminder) Social History Tobacco Use Types Packs/Day Years Used Date Smoking Tobacco: Never Smokeless Tobacco: Never Alcohol Use Standard Drinks/Week Comments Yes 0 (1 standard drink = 0.6 oz pur e alcohol) Rare Comments No Sex and Gender Information Value Date Recorded Sex Assigned at Not on file Legal Sex Female 3:19 AM ELECTRON BEAM WELDER Gender Identity Female 08/26/2020 9:05 PM CDT [...] documented as of this encounter Care Teams Marklogic Developer Relationship Specialty Start Date End Date Vanda Guerrero MD [address] [place] [address] [place] [address] PCP - General Internal Medicine 04/08/15 01/08/19 Vanda Guerrero MD [address] [place] [address] [place] [address] PCP - Assigned PCP 07/24/16 06/15/18 Noreen Flores APRN CINDER CRUSHER OPERATOR [address] [place] [address] [place] [address] PCP - Assigned PCP 06/16/18 08/13/18 Noreen Flores APRN CINDER CRUSHER OPERATOR [address] [facility] [place] [address] PCP - General Nurse Practitioner 01/09/19 12/12/21 Sudha Greene NP [address] [address] PCP - General 11/01/22 [facility] CINDER CRUSHER OPERATOR [address] [place] [address] [place] [address] Assigned PCP 06/16/18 05/26/22 Kalyan Galvan Personal Advocate & Liaison (PAL) 08/08/19 04/26/21 [facility] [address] [place] [address] [place] [address] Pharmacist Pharmacist 10/14/19 12/01/20 Eduardo Sharma MD [address] [place] [place] [address] Assigned Sleep Provider 04/02/2005/07 [place] [address] [facility] 300 [place] [address] Assigned Musculoskeletal Provider 04/02/20 08/24/20 Marcelo Artis PA-C [address] [facility] [address] [place] [address] Assigned Musculoskeletal Provider 08/25/20 08/20/21 Rodrigo Man PA-C [address] [place] [address] Assigned Surgical Provider 08/25/20 11/27/20 Noreen Flores APRN CINDER CRUSHER OPERATOR [address] [facility] [place] [address] Assigned PCP 08/05/22 03/16/23 Agatha Null DPM, Podiatry/Foot and Ankle Surgery [address] [place] [address] Assigned Musculoskeletal Provider 11/04/22 [facility] [place] [place] [facility] 3305 [facility] [place] [address] Assigned PCP 07/05/23 12/31/23 documented as of this encounter
--- OUTSIDE RECORDS SUMMARY | 2024-04-03 07:14 | XMS_ITS | Encounter Summary ---
Author Organization [place] Address [address] [place] [address] Care Team Providers Care Store Leader Name Role Phone Selma Good APRN CONTENT DEVELOPMENT SPECIALIST Primary Care Pro vider Vanda Guerrero MD Primary Care Provider [phone] Vanda Guerrero MD Unavailable [phone] Jeana-JdNoreen castro APRN, CNP Unavailable Jeana-JdNoreen castro APRN, CNP Unavailable JeanaNoreen Garcia APRN, CNP Primary Car e Provider Kalyan Galvan Unavailable Unavailable Lashae Trevino [facility] Unavailable [phone] Eduardo Sharma MD Unavailable Rios Monteiro MD Unavailable [phone] Marcelo Artis PA-C Unavailable [phone] Rodrigo ManC Unavailable [phone] Jeana-Noreen Miles APRN CONTENT DEVELOPMENT SPECIALIST Unavailable Sudha Greene NP Primary Care Provider Agatha NullM, Podiatry /Foot and Ankle Surgery Unavailable [facility] Unavailable Reason for Visit * Reason Onset Date Comments Symptoms 03/07/2012 uti Encounter Details Date Type Department Care Team (Late st Contact Info) Description 03/07/2012 MyC Medical Advice [address] [place] [address] Selma Good APRN CONTENT DEVELOPMENT SPECIALIST [address] [place] [address] [place] [id number] Symptoms (uti) Social History Tobacco Use Types Packs/Day Years Used Date Smoking Tobacco: Never Smokeless Tobacco: Never Alcohol Use Standard Drinks/Week Comments Yes 0 (1 standard drink = 0.6 oz pur e alcohol) Rare Comments No Sex and Gender Information Value Date Recorded Sex Assigned at Not on file Legal Sex Female 3:19 AM METAL WORK DUCT INSTALLER Gender Identity Female 08/26/2020 9:05 PM CDT [...] as of this encounter Care Teams Store Leader Relationship Specialty Start Date End Date Selma Good, LIGHT OIL OPERATOR CONTENT DEVELOPMENT SPECIALIST [address] [place] [address] [place] [address] PCP - General 04/09/08 04/07/15 Vanda Guerrero MD [address] [place] [address] [place] [address] PCP - General Internal Medicine 04/08/15 01/08/19 Vanda Guerrero MD [address] [place] [address] [place] [address] PCP - Assigned PCP 07/24/16 06/15/18 Noreen Flores APRN CONTENT DEVELOPMENT SPECIALIST [address] [place] [address] [place] [address] PCP - Assigned PCP 06/16/18 08/13/18 Noreen Flores APRN CONTENT DEVELOPMENT SPECIALIST [address] [place] [address] [place] [address] PCP - General Nurse Practitioner 01/09/19 12/12/21 Sudha Greene NP [address] [address] PCP - General 11/01/22 Noreen Flores APRN CONTENT DEVELOPMENT SPECIALIST [address] [place] [address] [place] [address] Assigned PCP 06/16/18 05/26/22 Kalyan Galvan Personal Advocate & Liaison (PAL) 08/08/19 04/26/21 Lashae Trevino, [facility] 1440 [facility] [place] [address] Pharmacist Pharmacist 10/14/19 12/01/20 Eduardo Sharma MD [address] [facility] [address] [place] [address] Assigned Sleep Provider 04/02/2005/07 [place] [address] [facility] 300 [place] [address] Assigned Musculoskeletal Provider 04/02/20 08/24/20 Marcelo Artis PA-C [address] [facility] 300 [place] [address] Assigned Musculoskeletal Provider 08/25/20 08/20/21 Rodrigo Man PA-C [address] [facility] [address] [place] [address] Assigned Surgical Provider 08/25/20 11/27/20 Noreen Flores APRN CONTENT DEVELOPMENT SPECIALIST [address] [place] [address] [place] [address] Assigned PCP 08/05/22 03/16/23 Agatha Null DPM, Podiatry/Foot and Ankle Surgery [address] [place] [address] [address] [place] [address] Assigned Musculoskeletal Provider 11/04/22 [facility] [place] [place] [facility] [address] [place] [address] [place] [phone] Assigned PCP 07/05/23 12/31/23 documented as of this encounter
--- OUTSIDE RECORDS SUMMARY | 2024-04-03 07:14 | XMS_ITS | Encounter Summary ---
Author Organization [place] Address [address] [place] [address] Care Team Providers Care Consulting Psychologist Name Role Phone Selma Good APRN AVP Primary Care Pro vider Vanda Guerrero MD Primary Care Provider [phone] Vanda Guerrero MD Unavailable [phone] Jeana-JdNoreen castro APRN AVP Unavailable Jeana-JdNoreen castro APRN, CNP Unavailable JeanaNoreen Garcia APRN AVP Primary Car e Provider Kalyan Galvan Unavailable Unavailable Lashae Trevino [facility] Unavailable [phone] Eduardo Sharma MD Unavailable Rios Monteiro MD Unavailable [phone] Marcelo Artis PA-C Unavailable [phone] Rodrigo Man PA-C Unavailable [phone] Jeana-Noreen Miles APRN AVP Unavailable Sudha Greene NP Primary Care Provider Agatha NullM, Podiatry /Foot and Ankle Surgery Unavailable [facility] Unavailable Encounter Details Date Type Department Care Team (Late st Contact Info) Description 05/21/2013 [facility] [address] [place] [address] [place] [phone] Alejo Casas Social History Tobacco Use Types Packs/Day Years Used Date Smoking Tobacco: Never Smokeless Tobacco: Never Alcohol Use Standard Drinks/Week Comments Yes 0 (1 standard drink = 0.6 oz pur e alcohol) Rare Comments No Sex and Gender Information Value Date Recorded Sex Assigned at Not on file Legal Sex Female 3:19 AM ASTROPHYSICS PROFESSOR Gender Identity Female 08/26/2020 9:05 PM [...] documented as of this encounter Care Teams Consulting Psychologist Relationship Specialty Start Date End Date Selma Good APRN AVP [address] [place] [address] [place] [address] PCP - General 04/09/08 04/07/15 Vanda Guerrero MD [address] [place] [address] [place] [address] PCP - General Internal Medicine 04/08/15 01/08/19 Vanda Guerrero MD [address] [place] [address] [place] [address] PCP - Assigned PCP 07/24/16 06/15/18 Noreen Flores APRN AVP [address] [place] [address] [place] [address] PCP - Assigned PCP 06/16/18 08/13/18 Noreen Flores APRN AVP [address] [place] [address] [place] [address] PCP - General Nurse Practitioner 01/09/19 12/12/21 Sudha Greene NP [address] [address] PCP - General 11/01/22 Noreen Flores APRN AVP [address] [place] [address] [place] [address] Assigned PCP 06/16/18 05/26/22 Kalyan Galvan Personal Advocate & Liaison (PAL) 08/08/19 04/26/21 [facility] [address] [place] [address] [place] [phone] Pharmacist Pharmacist 10/14/19 12/01/20 Eduardo Sharma MD 6363 [facility] [address] [place] [address] Assigned Sleep Provider 04/02/2005/07 [place] [address] [place] [address] Assigned Musculoskeletal Provider 04/02/20 08/24/20 Marcelo Artis PARejiC [address] [facility] [address] [place] [place] [address] Assigned Musculoskeletal Provider 08/25/20 08/20/21 Rodrigo Man PA-C [address] [place] [address] Assigned Surgical Provider 08/25/20 11/27/20 Noreen Flores APRN AVP [address] [facility] [place] [address] Assigned PCP 08/05/22 03/16/23 Agatha Null DPM, Podiatry/Foot and Ankle Surgery [address] [place] [address] Assigned Musculoskeletal Provider 11/04/22 [facility] [place] [facility] 3[address] [facility] [place] [id number] Assigned PCP 07/05/23 12/31/23 documented as of this encounter
--- OUTSIDE RECORDS SUMMARY | 2024-04-03 07:14 | XMS_ITS | Encounter Summary ---
Author Organization [place] Address [address] [place] [address] Care Team Providers Care Roller Shop Utility Worker Name Role Phone Selma Good APRN SURGICAL TECH Primary Care Pro vider Vanda Guerrero MD Primary Care Provider [phone] Vanda Guerrero MD Unavailable [phone] Jeana-JdNoreen castro APRN, CNP Unavailable Jeana-JdNoreen castro APRN, CNP Unavailable JeanaNoreen Garcia APRN, CNP Primary Car e Provider Kalyan Galvan Unavailable Unavailable Lashae Trevino [facility] Unavailable [phone] Eduardo Sharma MD Unavailable Rios Monteiro MD Unavailable [phone] Marcelo Artis PA-C Unavailable [phone] Rodrigo ManC Unavailable [phone] Jeana-Noreen Miles APRN SURGICAL TECH Unavailable Sudha Greene NP Primary Care Provider [phone] Agatha NullM, Podiatry /Foot and Ankle Surgery Unavailable [facility] [place] [facility] Unavailable Reason for Visit * Reason Onset Date Comments Medication Question 11/23/2011 topamax Encounter Details Date Type Department Care Team (Late st Contact Info) Description 11/23/2011 MyC Medical Advice [address] [place] [phone] Selma Good, LINING IRONER SURGICAL TECH [address] [place] [address] [place] [address] Medication Question (topamax) Social History Tobacco Use Types Packs/Day Years Used Date Smoking Tobacco: Never Smokeless Tobacco: Never Alcohol Use Standard Drinks/Week Comments Yes 0 (1 standard drink = 0.6 oz pur e alcohol) Rare Comments No Sex and Gender Information Value Date Recorded Sex Assigned at Not on file Legal Sex Female 3:19 AM DIAL BRUSHER Gender Identity Female 08/26/2020 9:05 PM CDT [...] as of this encounter Care Teams Roller Shop Utility Worker Relationship Specialty Start Date End Date Selma Good, LINING IRONER SURGICAL TECH [address] [place] [address] [place] [address] PCP - General 04/09/08 04/07/15 Vanda Guerrero MD [address] [place] [address] [place] [address] PCP - General Internal Medicine 04/08/15 01/08/19 Vanda Guerrero MD [address] [place] [address] [place] [address] PCP - Assigned PCP 07/24/16 06/15/18 Noreen Flores APRN SURGICAL TECH [address] [place] [address] [place] [address] PCP - Assigned PCP 06/16/18 08/13/18 Noreen Flores APRN SURGICAL TECH [address] [place] [address] [place] [address] PCP - General Nurse Practitioner 01/09/19 12/12/21 Sudha Greene NP [address] [address] PCP - General 11/01/22 Noreen Flores APRN SURGICAL TECH [address] [place] [address] [place] [address] Assigned PCP 06/16/18 05/26/22 Kalyan Galvan Personal Advocate & Liaison (PAL) 08/08/19 04/26/21 [facility] [address] [facility] [place] [address] Pharmacist Pharmacist 10/14/19 12/01/20 Eduardo Sharma MD [address] [facility] [address] [place] [address] Assigned Sleep Provider 04/02/2005/07 [place] [address] [facility] 300 [place] [address] Assigned Musculoskeletal Provider 04/02/20 08/24/20 Marcelo Artis PA-C [address] [address] Assigned Musculoskeletal Provider 08/25/20 08/20/21 Rodrigo Man PA-C [address] [facility] [facility] 450 [place] [address] Assigned Surgical Provider 08/25/20 11/27/20 Noreen Flores APRN CNP [address] [place] [address] [place] [address] Assigned PCP 08/05/22 03/16/23 Agatha Null DPM, Podiatry/Foot and Ankle Surgery [address] [place] [address] 300 [place] [address] Assigned Musculoskeletal Provider 11/04/22 [facility] [place] [facility] [address] [facility] [place] [address] Assigned PCP 07/05/23 12/31/23 documented as of this encounter
--- OUTSIDE RECORDS SUMMARY | 2024-04-03 07:14 | XMS_ITS | Encounter Summary ---
Author Organization [facility] Address [address] [place] [address] Care Team Providers Care Diabetes Trainer Name Role Phone Vanda Guerrero MD Primary Care Provider [phone] Vanda Guerrero MD Unavailable [phone] Jeana-Noreen Miles APRN LACQUER SPRAY BOOTH OPERATOR Unavailable [facility]Noreen Miles APRN LACQUER SPRAY BOOTH OPERATOR Unavailable [facility]-JdNoreen castro LONGWALL MACHINE OPERATOR HELPER LACQUER SPRAY BOOTH OPERATOR Primary Car e Provider Kalyan Galvan Unavailable Unavailable Lashea Trevino [facility] Unavailable Eduardo Sharma MD Unavailable Rios Monteiro MD Unavailable [phone] Marcelo Artis PA-C Unavailable Rodrigo ManC Unavailable Jeana-Noreen Miles APRN LACQUER SPRAY BOOTH OPERATOR Unavailable Sudha Greene NP Primary Care Provider Agatha Null DPM, Podiatry /Foot and Ankle Surgery Unavailable [facility] [place] Unavailable Reason for Visit * Reason Onset Date Comments Musculoskeletal Problem 06/13/2016 Travel a dvice Encounter Details Date Type Department Care Team (Latest Contact Info) Description 06/13/2016 MyC Medical Advice [facility] [address] [place] [address] Agatha Null, DPNita, Podiatry/Foot and Ankle Surgery [address] [place] [address] Musculoskeletal Problem (Travel advice) Social History Tobacco Use Types Packs/Day Years Used Date Smoking Tobacco: Never Smokeless Tobacco: Never Alcohol Use Standard Drinks/Week Comments Yes 0 (1 standard drink = 0.6 oz pur e alcohol) Rare Comments No Sex and Gender Information Value Date Recorded Sex Assigned at Not on file Legal Sex Female 3:19 AM EXECUTIVE COORDINATOR Gender Identity Female 08/26/2020 9:05 PM CDT Sexual Orientation Not on file 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 Iain Barone RN UTIVE COORDINATOR documented in this encounter Plan of [...] Total Score: 11 05/02/ 016 7:09 AM EXECUTIVE COORDINATOR documented as of this encounter Care Teams Diabetes Trainer Relationship Specialty Start Date End Date Vanda Guerrero MD [facility] [place] [address] PCP - General Internal Medicine 04/08/15 01/08/19 [place] [address] [place] [address] [place] [address] PCP - Assigned PCP 07/24/16 06/15/18 Noreen Flores APRN LACQUER SPRAY BOOTH OPERATOR [address] [place] [address] [place] [address] PCP - Assigned PCP 06/16/18 08/13/18 Noreen Flores APRN LACQUER SPRAY BOOTH OPERATOR [address] [place] [address] [place] [address] PCP - General Nurse Practitioner 01/09/19 12/12/21 Sudha Greene NP [address] [address] PCP - General 11/01/22 Noreen Flores APRN LACQUER SPRAY BOOTH OPERATOR [address] [place] [address] [place] [address] Assigned PCP 06/16/18 05/26/22 Kalyan Galvan Personal Advocate & Liaison (PAL) 08/08/19 04/26/21 [facility] [address] [place] [address] Pharmacist Pharmacist 10/14/19 12/01/20 Eduardo Sharma MD [facility] [address] [place] [id number] Assigned Sleep Provider 04/02/2005/07 [place] [address] [facility] [address] [place] [id number] Assigned Musculoskeletal Provider 04/02/20 08/24/20 Marcelo Artis PA-C [address] [facility] 300 [place] [address] Assigned Musculoskeletal Provider 08/25/20 08/20/21 Rodrigo Man PA-C [address] [facility] 450 [place] [address] Assigned Surgical Provider 08/25/20 11/27/20 Noreen Flores APRN CNP [address] [place] [address] [place] [address] Assigned PCP 08/05/22 03/16/23 Agatha Null DPM, Podiatry/Foot and Ankle Surgery [address] [place] [address] 300 [place] [address] Assigned Musculoskeletal Provider 11/04/22 [facility] 3305 [place] [address] Assigned PCP 07/05/23 12/31/23 documented as of this encounter
--- OUTSIDE RECORDS SUMMARY | 2024-04-03 07:14 | XMS_ITS | Encounter Summary ---
Author Organization [facility] Address [address] [place] [address] Care Team Providers Care Senior Quality Control Inspector Name Role Phone Selma Good APRN GLOBAL PROGRAM MANAGER Primary Care Pro vider Vanda Guerrero MD Primary Care Provider [phone] Vanda Guerrero MD Unavailable [phone] Jeana-JdNoreen castro APRN GLOBAL PROGRAM MANAGER Unavailable Jeana-JdNoreen castro APRN, CNP Unavailable JeanaNoreen Garcia APRN GLOBAL PROGRAM MANAGER Primary Car e Provider Kalyan Galvan Unavailable Unavailable Lashae Trevino [facility] Unavailable [phone] Eduardo Sharma MD Unavailable Rios Monteiro MD Unavailable [phone] Marcelo Artis PA-C Unavailable [phone] Rodrigo Man PA-C Unavailable [phone] Jeana-Noreen Miles APRN GLOBAL PROGRAM MANAGER Unavailable Sudha Greene NP Primary Care Provider Agatha NullM, Podiatry /Foot and Ankle Surgery Unavailable [facility] Unavailable Encounter Details Date Type Department Care Team (Late st Contact Info) Description 04/24/2011 [facility] 6[address] [facility] [place] [phone] Alejo Casas Social History Tobacco Use Types Packs/Day Years Used Date Smoking Tobacco: Never Alcohol Use Standard Drinks/Week Comments Yes 0 (1 standard drink = 0.6 oz pur e alcohol) Rare Comments No Sex and Gender Information Value Date Recorded Sex Assigned at Not on file Legal Sex Female 3:19 AM WORK ORDER DETAILER Gender Identity Female 08/26/2020 9:05 PM CDT [...] Start Date End Date Selma Good APRN GLOBAL PROGRAM MANAGER [address] [place] [address] [place] [address] PCP - General 04/09/08 04/07/15 Vanda Guerrero MD [address] [place] [address] [place] [address] PCP - General Internal Medicine 04/08/15 01/08/19 Vanda Guerrero MD [address] [place] [address] [place] [address] PCP - Assigned PCP 07/24/16 06/15/18 Noreen Flores APRN GLOBAL PROGRAM MANAGER [address] [place] [address] [place] [address] PCP - Assigned PCP 06/16/18 08/13/18 Noreen Flores APRN GLOBAL PROGRAM MANAGER [address] [place] [address] [place] [address] PCP - General Nurse Practitioner 01/09/19 12/12/21 Sudha Greene NP [address] [address] PCP - General 11/01/22 Noreen Flores APRN GLOBAL PROGRAM MANAGER [address] [place] [address] [place] [address] Assigned PCP 06/16/18 05/26/22 Kalyan Galvan Personal Advocate & Liaison (PAL) 08/08/19 04/26/21 Lashae Trevino [facility] [place] [address] Pharmacist Pharmacist 10/14/19 12/01/20 Eduardo Sharma MD [address] 066385 Assigned Sleep Provider 04/02/2005/07 [place] [address] [place] [address] [place] [address] Assigned Musculoskeletal Provider 04/02/20 08/24/20 Marcelo Artis PA-C [address] [place] [address] [place] [address] Assigned Musculoskeletal Provider 08/25/20 08/20/21 Rodrigo Man PA-C [address] [place] [address] Assigned Surgical Provider 08/25/20 11/27/20 Noreen Flores APRN GLOBAL PROGRAM MANAGER 3305 [facility] [place] [address] Assigned PCP 08/05/22 03/16/23 Agatha Null DPM, Podiatry/Foot and Ankle Surgery [address] [place] 300 [place] [address] Assigned Musculoskeletal Provider 11/04/22 [facility] 3305 [facility] [place] [id number] Assigned PCP 07/05/23 12/31/23 documented as of this encounter
--- OUTSIDE RECORDS SUMMARY | 2024-04-03 07:14 | XMS_ITS | Encounter Summary ---
Author Organization [facility] Address [address] [place] [address] Care Team Providers Care Hoist Worker Name Role Phone Selma Good APRN APPIAN BPM DEVELOPER Primary Care Pro vider Vanda Guerrero MD Primary Care Provider [phone] Vanda Guerrero MD Unavailable [phone] Jeana-JdNoreen castro APRN, CNP Unavailable Jeana-JdNoreen castro APRN, CNP Unavailable JeanaNoreen Garcia APRN, CNP Primary Car e Provider Kalyan Galvan Unavailable Unavailable Lashae Trevino [facility] Unavailable [phone] Eduarod Sharma MD Unavailable Rios Monteiro MD Unavailable [phone] Marcelo Artis PA-C Unavailable [phone] Rodrigo ManC Unavailable [phone] Jeana-Noreen Miles APRN APPIAN BPM DEVELOPER Unavailable Sudha Greene NP Primary Care Provider Agatha NullM, Podiatry /Foot and Ankle Surgery Unavailable [facility] Unavailable Reason for Visit * Reason Onset Date Comments Vaginal Problem 05/24/2011 itchy -worse wit h cream Encounter Details Date Type Department Care Team (Late st Contact Info) Description 05/24/2011 MyC Medical Advice [address] [place] [phone] Selma Good APRN APPIAN BPM DEVELOPER [address] [place] [address] [place] [address] Vaginal Problem (itchy -worse with cream ) Social History Tobacco Use Types Packs/Day Years Used Date Smoking Tobacco: Never Smokeless Tobacco: Never Alcohol Use Standard Drinks/Week Comments Yes 0 (1 standard drink = 0.6 oz pur e alcohol) Rare Comments No Sex and Gender Information Value Date Recorded Sex Assigned at Not on file Legal Sex Female 3:19 AM MANAGER TECHNICAL SUPPORT Gender Identity Female 08/26/2020 9:05 PM CDT [...] documented as of this encounter Care Teams Hoist Worker Relationship Specialty Start Date End Date Selma Good, SEAN APPIAN BPM DEVELOPER [address] [place] [address] [place] [address] PCP - General 04/09/08 04/07/15 Vanda Guerrero MD [address] [place] [address] [place] [address] PCP - General Internal Medicine 04/08/15 01/08/19 Vanda Guerrero MD [address] [place] [address] [place] [address] PCP - Assigned PCP 07/24/16 06/15/18 Noreen Flores APRN APPIAN BPM DEVELOPER [address] [place] [address] [place] [address] PCP - Assigned PCP 06/16/18 08/13/18 Noreen Flores APRN APPIAN BPM DEVELOPER [address] [place] [address] [place] [address] PCP - General Nurse Practitioner 01/09/19 12/12/21 Sudha Greene, MAURICIO [address] [address] PCP - General 11/01/22 Noreen Flores APRN APPIAN BPM DEVELOPER [address] [place] [address] [place] [address] Assigned PCP 06/16/18 05/26/22 Kalyan Galvan Personal Advocate & Liaison (PAL) 08/08/19 04/26/21 [facility] 1440 [facility] [place] [phone] Pharmacist Pharmacist 10/14/19 12/01/20 Eduardo Sharma MD [address] [facility] 103 [place] [id number] Assigned Sleep Provider 04/02/2005/07 [place] [address] [facility] 300 [place] 218497 Assigned Musculoskeletal Provider 04/02/20 08/24/20 Marcelo Artis PA-C [address] [address] Assigned Musculoskeletal Provider 08/25/20 08/20/21 Rodrigo Man PA-C [address] [facility] 450 [place] [address] Assigned Surgical Provider 08/25/20 11/27/20 Noreen Flores APRN CNP [address] [place] [address] [place] [address] Assigned PCP 08/05/22 03/16/23 Agatha Null DPM, Podiatry/Foot and Ankle Surgery [address] [place] [address] 300 [place] [address] Assigned Musculoskeletal Provider 11/04/22 [facility] [address] [place], [place] [address] [address] Assigned PCP 07/05/23 12/31/23 documented as of this encounter
--- OUTSIDE RECORDS SUMMARY | 2024-04-03 07:14 | XMS_ITS | Encounter Summary ---
Author Organization [facility] Address [address] [place] [address] Care Team Providers Care Director Mba Name Role Phone Selma Good APRN CLINICAL DOCUMENTATION SPECIALIST Primary Care Pro vider Vanda Guerrero MD Primary Care Provider [phone] Vanda Guerrero MD Unavailable [phone] Jeana-JdNoreen castro APRN, CNP Unavailable Jeana-JdNoreen castro APRN, CNP Unavailable JeanaNoreen Garcia APRN, CNP Primary Car e Provider Kalyan Galvan Unavailable Unavailable Lashae Trevino [facility] Unavailable [phone] Eduardo Sharma MD Unavailable Rios Monteiro MD Unavailable [phone] Marcelo Artis PA-C Unavailable [phone] Rodrigo ManC Unavailable [phone] Jeana-Noreen Miles APRN CLINICAL DOCUMENTATION SPECIALIST Unavailable Sudha Greene NP Primary Care Provider Agatha NullM, Podiatry /Foot and Ankle Surgery Unavailable [facility] Unavailable Reason for Visit * Reason Onset Date Comments Medication Question 10/06/2014 lisinopril Refill Request 10/06/2014 OT lancets and s trips Encounter Details Date Type Department Care Team (Late st Contact Info) Description 10/06/2014 MyC Medical Advice [facility] [place] [address]40 [facility] [place] [phone] Selma Good, [facility] 3305 [facility] [place] [address] Medication Question (lisinopril); Refill R... Social History Tobacco Use Types Packs/Day Years Used Date Smoking Tobacco: Never Smokeless Tobacco: Never Alcohol Use Standard Drinks/Week Comments Yes 0 (1 standard drink = 0.6 oz pur e alcohol) Rare Comments No Sex and Gender Information Value Date Recorded Sex Assigned at Not on file Legal Sex Female 3:19 AM REGISTERED LAND SURVEYOR Gender Identity Female 08/26/2020 9:05 PM CDT [...] PM CDT Appointment today with Kenyon GUEVARA, NUTRITION SERVICES AIDE: 5. Hypertension goal BP (blood pressure) < [...] as of this encounter Care Teams Director Mba Relationship Specialty Start Date End Date Selma Good APRN CLINICAL DOCUMENTATION SPECIALIST [address] [place] [address] [place] [address] PCP - General 04/09/08 04/07/15 Vanda Guerrero MD [address] [place] [address] [place] [address] PCP - General Internal Medicine 04/08/15 01/08/19 Vanda Guerrero MD [address] [place] [address] [place] [address] PCP - Assigned PCP 07/24/16 06/15/18 Noreen Flores APRN CLINICAL DOCUMENTATION SPECIALIST [address] [place] [address] [place] [address] PCP - Assigned PCP 06/16/18 08/13/18 Noreen Flores APRN CLINICAL DOCUMENTATION SPECIALIST [address] [place] [address] [place] [address] PCP - General Nurse Practitioner 01/09/19 12/12/21 Sudha Greene NP [address] [address] PCP - General 11/01/22 Noreen Flores APRN CLINICAL DOCUMENTATION SPECIALIST [address] [place] [address] [place] [address] Assigned PCP 06/16/18 05/26/22 Kalyan Galvan Personal Advocate & Liaison (PAL) 08/08/19 04/26/21 Lashae Trevino, [facility] [place] [phone] Pharmacist Pharmacist 10/14/19 12/01/20 Eduardo Sharma MD [address] [place] [address] [place] 555[address] Assigned Sleep Provider 04/02/2005/07 [place] [address] [facility] [place] 300 [place] [address] Assigned Musculoskeletal Provider 04/02/20 08/24/20 Marcelo Artis PA-C [address] [place] [address] [place] [address] Assigned Musculoskeletal Provider 08/25/20 08/20/21 Rodrigo Man PA-C [address] [place] 450 [place] [id number] Assigned Surgical Provider 08/25/20 11/27/20 Noreen Flores APRN CLINICAL DOCUMENTATION SPECIALIST [address] [place] [address] [place] [address] Assigned PCP 08/05/22 03/16/23 Agatha Null DPM, Podiatry/Foot and Ankle Surgery [address] [place] [address] Assigned Musculoskeletal Provider 11/04/22 [facility] [address] [place] [address] Assigned PCP 07/05/23 12/31/23 documented as of this encounter
--- OUTSIDE RECORDS SUMMARY | 2024-04-03 07:14 | XMS_ITS | Encounter Summary ---
Author Organization [facility] Address [address] [place] [address] Care Team Providers Care Bank Credit Card Collection Clerk Name Role Phone Vanda Guerrero MD Primary Care Provider [phone] Vanda Guerrero MD Unavailable [phone] Jeana-Noreen Miles APRN MANAGER TREASURY Unavailable [facility]-Noreen Miles APRN MANAGER TREASURY Unavailable [facility]-JdNoreen castro RETAIL CASHIER ASSOCIATE MANAGER TREASURY Primary Car e Provider Kalyan Galvan Unavailable Unavailable Lashae Trevino [facility] Unavailable Eduardo Sharma MD Unavailable Rios Monteiro MD Unavailable [phone] Marcelo Artis PA-C Unavailable Rodrigo ManC Unavailable Jeana-Noreen Miles APRN MANAGER TREASURY Unavailable Sudha Greene NP Primary Care Provider Agatha Null DPM, Podiatry /Foot and Ankle Surgery Unavailable [facility] [place] Unavailable Reason for Visit * Reason Onset Date Comments Clarification 05/19/2016 Encounter Details Date Type Department Care Team (Late st Contact Info) Description 05/19/2016 MyC Medical Advice [facility] [address] [place] [address] Agatha Null, DPM, Podiatry/Foot and Ankle Surgery [address] [place] [address] Clarification Social History Tobacco Use Types Packs/Day Years Used Date Smoking Tobacco: Never Smokeless Tobacco: Never Alcohol Use Standard Drinks/Week Comments Yes 0 (1 standard drink = 0.6 oz pur e alcohol) Rare Comments No Sex and Gender Information Value Date Recorded Sex Assigned at Not on file Legal Sex Female 3:19 AM LEAD REFINER Gender Identity Female 08/26/2020 9:05 PM CDT [...] Total Score: 11 05/02/ 016 7:09 AM LEAD REFINER documented as of this encounter Care Teams Bank Credit Card Collection Clerk Relationship Specialty Start Date End Date Vanda Guerrero MD [address] [place] [address] [place] [address] PCP - General Internal Medicine 04/08/15 01/08/19 Vanda Guerrero MD [address] [place] [address] [place] [address] PCP - Assigned PCP 07/24/16 06/15/18 Noreen Flores APRN MANAGER TREASURY [address] [place] [address] [place] [address] PCP - Assigned PCP 06/16/18 08/13/18 Noreen Flores APRN MANAGER TREASURY [address] [place] [address] [place] [address] PCP - General Nurse Practitioner 01/09/19 12/12/21 Sudha Greene NP [address] [address] PCP - General 11/01/22 Noreen Flores APRN MANAGER TREASURY [address] [place] [address] [place] [address] Assigned PCP 06/16/18 05/26/22 Kalyan Galvan Personal Advocate & Liaison (PAL) 08/08/19 04/26/21 Lashae Trevino [facility] [address] [place] [address] [place] [address] Pharmacist Pharmacist 10/14/19 12/01/20 Eduardo Sharma MD [address] [address] Assigned Sleep Provider 04/02/2005/07 Rios Monteiro MD [address] [place] [address] 300 [place] [address] Assigned Musculoskeletal Provider 04/02/20 08/24/20 Marcelo Artis PA-C [address] [facility] 300 [place] [address] Assigned Musculoskeletal Provider 08/25/20 08/20/21 Rodrigo Man PA-C [address] [place] [place] [address] Assigned Surgical Provider 08/25/20 11/27/20 Noreen Flores APRN MANAGER TREASURY 3305 [facility] [place] [address] Assigned PCP 08/05/22 03/16/23 Agatha Null DPM, Podiatry/Foot and Ankle Surgery [address] [place] [address] [place] [address] Assigned Musculoskeletal Provider 11/04/22 [facility] [address] [facility] [place] [phone] Assigned PCP 07/05/23 12/31/23 documented as of this encounter
--- OUTSIDE RECORDS SUMMARY | 2024-04-03 07:14 | XMS_ITS | Encounter Summary ---
Author Organization [facility] Address [address] [place] [address] Care Team Providers Care Film Processing Supervisor Name Role Phone Selma Good APRN OCCUPANCY SPECIALIST Primary Care Pro vider Vanda Guerrero MD Primary Care Provider [phone] Vanda Guerrero MD Unavailable [phone] Jeana-JdNoreen castro APRN OCCUPANCY SPECIALIST Unavailable Jeana-JdNoreen castro APRN, CNP Unavailable JeanaNoreen Garcia APRN OCCUPANCY SPECIALIST Primary Car e Provider Kalyan Galvan Unavailable Unavailable Lashae Trevino [facility] Unavailable [phone] Eduardo Sharma MD Unavailable Rios Monteiro MD Unavailable [phone] Marcelo Artis PA-C Unavailable [phone] Rodrigo Man PA-C Unavailable [phone] Jeana-Noreen Miles APRN OCCUPANCY SPECIALIST Unavailable Sudha Greene NP Primary Care Provider Agatha NullM, Podiatry /Foot and Ankle Surgery Unavailable [facility] Unavailable Encounter Details Date Type Department Care Team (Late st Contact Info) Description 07/12/2012 [facility] [place] [phone] Selma Good APRN OCCUPANCY SPECIALIST [address] [place] [address] [place] [address] Social History Tobacco Use Types Packs/Day Years Used Date Smoking Tobacco: Never Smokeless Tobacco: Never Alcohol Use Standard Drinks/Week Comments Yes 0 (1 standard drink = 0.6 oz pur e alcohol) Rare Comments No Sex and Gender Information Value Date Recorded Sex Assigned at Not on file Legal Sex Female 3:19 AM SANDBLASTER STONE Gender Identity Female 08/26/2020 9:05 PM CDT [...] as of this encounter Care Teams Film Processing Supervisor Relationship Specialty Start Date End Date Selma Good, SEAN OCCUPANCY SPECIALIST [address] [place] [address] [place] [address] PCP - General 04/09/08 04/07/15 Vanda Guerrero MD [address] [place] [address] [place] [address] PCP - General Internal Medicine 04/08/15 01/08/19 Vanda Guerrero MD [address] [place] [address] [place] [address] PCP - Assigned PCP 07/24/16 06/15/18 Noreen Flores APRN OCCUPANCY SPECIALIST 3305 [facility] [place] [address] PCP - Assigned PCP 06/16/18 08/13/18 Noreen Flores APRN OCCUPANCY SPECIALIST 3305 [facility] [place] [address] PCP - General Nurse Practitioner 01/09/19 12/12/21 Sudha Greene, MAURICIO [address] [address] PCP - General 11/01/22 Noreen Flores APRN OCCUPANCY SPECIALIST [address] [place] [address] [place] [address] Assigned PCP 06/16/18 05/26/22 Kalyan Galvan Personal Advocate & Liaison (PAL) 08/08/19 04/26/21 Lashae Trevino, [facility] 1440 [facility] [place] [address] Pharmacist Pharmacist 10/14/19 12/01/20 Eduardo Sharma MD 6363 [facility] 103 [place] [address] Assigned Sleep Provider 04/02/2005/07 [place] [address] [facility] 300 [place] [address] Assigned Musculoskeletal Provider 04/02/20 08/24/20 Marcelo Artis PA-C [address]49[address] [facility] 300 [place] [address] Assigned Musculoskeletal Provider 08/25/20 08/20/21 Rodrigo Man PA-C [address] [facility] 450 [place] [address] Assigned Surgical Provider 08/25/20 11/27/20 Noreen Flores APRN OCCUPANCY SPECIALIST 3305 [facility] [place] [phone] Assigned PCP 08/05/22 03/16/23 Agatha Null, DPM, Podiatry/Foot and Ankle Surgery [address] [facility] 300 [place] [address] Assigned Musculoskeletal Provider 11/04/22 [facility] [place] [facility] 3305 [facility] [place] [phone] Assigned PCP 07/05/23 12/31/23 documented as of this encounter
--- OUTSIDE RECORDS SUMMARY | 2024-04-03 07:14 | XMS_ITS | Encounter Summary ---
Author Organization [place] Address [address] [place] [address] Care Team Providers Care Cyber Defense Incident Responder Name Role Phone Vanda Guerrero MD Primary Care Provider [phone] Vanda Guerrero MD Unavailable [phone] Jeana-Noreen Miles APRN LAUNDRY OPERATOR WASH ROOM Unavailable [facility]-N[facility]en Miles APRN LAUNDRY OPERATOR WASH ROOM Unavailable [facility]-JdNoreen castro ALLERGY PHYSICIAN LAUNDRY OPERATOR WASH ROOM Primary Car e Provider Kalyan Galvan Unavailable Unavailable Lashae Trevino [facility] Unavailable Eduardo Sharma MD Unavailable Rios Monteiro MD Unavailable [phone] Marcelo Artis PA-C Unavailable Rodrigo Man PA-C Unavailable Jeana-Noreen Miles APRN LAUNDRY OPERATOR WASH ROOM Unavailable Sudha Greene NP Primary Care Provider Agatha Null DPM, Podiatry /Foot and Ankle Surgery Unavailable [facility] Unavailable Reason for Visit * Reason Onset Date Comments Patient/info Update 05/01/2016 foot prob Encounter Details Date Type Department Care Team (Late st Contact Info) Description 05/01/2016 MyC Medical Advice [facility] [address] [place] [address] Agatha Null DPNita, Podiatry/Foot and Ankle Surgery [address] [place] [address] Patient/info Update (foot prob) Social History Tobacco Use Types Packs/Day Years Used Date Smoking Tobacco: Never Smokeless Tobacco: Never Alcohol Use Standard Drinks/Week Comments Yes 0 (1 standard drink = 0.6 oz pur e alcohol) Rare Comments No Sex and Gender Information Value Date Recorded Sex Assigned at Not on file Legal Sex Female 3:19 AM TILE HELPER Gender Identity Female 08/26/2020 9:05 PM CDT [...] as of this encounter Care Teams Cyber Defense Incident Responder Relationship Specialty Start Date End Date Vanda Guerrero MD [address] [place] [address] [place] [address] PCP - General Internal Medicine 04/08/15 01/08/19 Vanda Guerrero MD [address] [place] [address] [place] [address] PCP - Assigned PCP 07/24/16 06/15/18 Noreen Flores APRN LAUNDRY OPERATOR WASH ROOM [address] [place] [address] [place] [address] PCP - Assigned PCP 06/16/18 08/13/18 Noreen Flores APRN LAUNDRY OPERATOR WASH ROOM [address] [place] [address] [place] [address] PCP - General Nurse Practitioner 01/09/19 12/12/21 Sudha Greene, MAURICIO [address] [address] PCP - General 11/01/22 Noreen Flores APRN LAUNDRY OPERATOR WASH ROOM [address] [place] [address] [place] [address] Assigned PCP 06/16/18 05/26/22 Kalyan Galvan Personal Advocate & Liaison (PAL) 08/08/19 04/26/21 Lashae Trevino, [facility] [address] [place] [address] [place] [phone] Pharmacist Pharmacist 10/14/19 12/01/20 Eduardo Sharma MD [address] [facility] [address] [place] [address] Assigned Sleep Provider 04/02/2005/07 [place] [address] [place] [address] [place] [address] Assigned Musculoskeletal Provider 04/02/20 08/24/20 Marcelo Artis, PA-C [address] [place] [address] [place] [address] Assigned Musculoskeletal Provider 08/25/20 08/20/21 Rodrigo Man PA-C [address] [place] [place] [address] Assigned Surgical Provider 08/25/20 11/27/20 Noreen Flores APRN LAUNDRY OPERATOR WASH ROOM [address] [facility] [place] [address] Assigned PCP 08/05/22 03/16/23 Agatha Null DPM, Podiatry/Foot and Ankle Surgery [address] [place] [address] [place] [address] Assigned Musculoskeletal Provider 11/04/22 [facility] [address] [facility] [place] [address] Assigned PCP 07/05/23 12/31/23 documented as of this encounter
--- OUTSIDE RECORDS SUMMARY | 2024-04-03 07:14 | XMS_ITS | Encounter Summary ---
Author Organization [facility] Address [address] [place] [address] Care Team Providers Care District Court Judge Name Role Phone Selma Good APRN FREIGHT BRAKE OPERATOR Primary Care Pro vider Vanda Guerrero MD Primary Care Provider [phone] Vanda Guerrero MD Unavailable [phone] Jeana-JdNoreen castro APRN, CNP Unavailable Jeana-JdNoreen castro APRN, CNP Unavailable JeanaNoreen Garcia APRN, CNP Primary Car e Provider Kalayn Galvan Unavailable Unavailable Lashae Trevino [facility] Unavailable [phone] Eduardo Sharma MD Unavailable Rios Monteiro MD Unavailable [phone] Marcelo Artis PA-C Unavailable [phone] Rodrigo ManC Unavailable [phone] Jeana-Noreen Miles APRN FREIGHT BRAKE OPERATOR Unavailable Sudha Greene NP Primary Care Provider Agatha NullM, Podiatry /Foot and Ankle Surgery Unavailable [facility] Unavailable Reason for Visit * Reason Onset Date Comments Medication Question 05/29/2012 wellbutrin Encounter Details Date Type Department Care Team (Late st Contact Info) Description 05/29/2012 MyC Medical Advice [address] [place] [address] Selma Good, PRESS MACHINE FEEDER FREIGHT BRAKE OPERATOR [address] [facility] [place] [address] Medication Question (wellbutrin) Social History Tobacco Use Types Packs/Day Years Used Date Smoking Tobacco: Never Smokeless Tobacco: Never Alcohol Use Standard Drinks/Week Comments Yes 0 (1 standard drink = 0.6 oz pur e alcohol) Rare Comments No Sex and Gender Information Value Date Recorded Sex Assigned at Not on file Legal Sex Female 3:19 AM CHIEF POWER DISPATCHER Gender Identity Female 08/26/2020 9:05 PM [...] documented as of this encounter Care Teams District Court Judge Relationship Specialty Start Date End Date Selma Good, PRESS MACHINE FEEDER FREIGHT BRAKE OPERATOR [address] [place] [address] [place] [address] PCP - General 04/09/08 04/07/15 Vanda Guerrero MD [facility] [place] [address] PCP - General Internal Medicine 04/08/15 01/08/19 Vanda Guerrero MD [address] [place] [address] [place] [address] PCP - Assigned PCP 07/24/16 06/15/18 Noreen Flores APRN FREIGHT BRAKE OPERATOR [address] [place] [address] [place] [address] PCP - Assigned PCP 06/16/18 08/13/18 Noreen Flores APRN FREIGHT BRAKE OPERATOR [address] [place] [address] [place] [address] PCP - General Nurse Practitioner 01/09/19 12/12/21 Sudha Greene, MAURICIO [address] [address] PCP - General 11/01/22 Noreen Flores APRN FREIGHT BRAKE OPERATOR [address] [place] [address] [place] [address] Assigned PCP 06/16/18 05/26/22 Kalyan Galvan Personal Advocate & Liaison (PAL) 08/08/19 04/26/21 Lashae Trevino [facility] [address] [place] [address] Pharmacist Pharmacist 10/14/19 12/01/20 Eduadro Sharma MD [address] [place] [address] [place] [address] Assigned Sleep Provider 04/02/2005/07 [place] [address] [facility] [address] [place] [address] Assigned Musculoskeletal Provider 04/02/20 08/24/20 Marcelo Artis PA-C [address] [place] [address] [place] [address] Assigned Musculoskeletal Provider 08/25/20 08/20/21 Rodrigo Man PA-C [address] [facility] [address] [place] [address] Assigned Surgical Provider 08/25/20 11/27/20 Noreen Flores APRN FREIGHT BRAKE OPERATOR [address] [place] [address] [place] [address] Assigned PCP 08/05/22 03/16/23 Agatha Null DPM, Podiatry/Foot and Ankle Surgery [address] [place] [address] [facility] [address] [place] [address] Assigned Musculoskeletal Provider 11/04/22 [facility] 3305 [facility] [place] [id number] Assigned PCP 07/05/23 12/31/23 documented as of this encounter
--- OUTSIDE RECORDS SUMMARY | 2024-04-03 07:14 | XMS_ITS | Encounter Summary ---
Author Organization [facility] Address [address] [place] [address] Care Team Providers Care E Business Specialist Name Role Phone Vanda Guerrero MD Primary Care Provider [phone] Vanda Guerrero MD Unavailable [phone] Jeana-Noreen Miles APRN FOREST SUPERVISOR Unavailable Jeana-Noreen Miles APRN FOREST SUPERVISOR Unavailable Jeana-JdNoreen castro COMMUNICATIONS INTERN FOREST SUPERVISOR Primary Car e Provider Kalyan Glavan Unavailable Unavailable Lashae Trevino [facility] Unavailable [phone] Eduardo Sharma MD Unavailable Rios Monteiro MD Unavailable [phone] Marcelo Artis PA-C Unavailable Rodrigo ManC Unavailable Jeana-Noreen Miles APRN FOREST SUPERVISOR Unavailable Sudha Greene NP Primary Care Provider Agatha Null DPM, Podiatry /Foot and Ankle Surgery Unavailable [facility] [place] Unavailable Encounter Details Date Type Department Care Team (Late st Contact Info) Description 12/05/2016 [facility] Lucy Moya [facility] [address] [place] [address] [place] 563670 [facility] [place] [address] Social History Tobacco Use Types Packs/Day Years Used Date Smoking Tobacco: Never Smokeless Tobacco: Never Alcohol Use Standard Drinks/Week Comments Yes 0 (1 standard drink = 0.6 oz pur e alcohol) Rare Comments No Sex and Gender Information Value Date Recorded Sex Assigned at Not on file Legal Sex Female 3:19 AM UNDERWRITING SPECIALIST Gender Identity Female 08/26/2020 9:05 PM CDT [...] documented as of this encounter Care Teams E Business Specialist Relationship Specialty Start Date End Date Vanda Guerrero MD [address] [place] [address] [place] [address] PCP - General Internal Medicine 04/08/15 01/08/19 Vanda Guerrero MD [address] [place] [address] [place] [address] PCP - Assigned PCP 07/24/16 06/15/18 Noreen Flores APRN CNP [address] [place] [address] [place] [address] PCP - Assigned PCP 06/16/18 08/13/18 Noreen Flores APRN FOREST SUPERVISOR [address] [facility] [place] [address] PCP - General Nurse Practitioner 01/09/19 12/12/21 Sudha Greene NP [address] [address] PCP - General 11/01/22 Noreen Flores APRN FOREST SUPERVISOR [address] [place] [address] [place] [address] Assigned PCP 06/16/18 05/26/22 Kalyan Galvan Personal Advocate & Liaison (PAL) 08/08/19 04/26/21 [facility] [address] [place] [address] [place] [address] Pharmacist Pharmacist 10/14/19 12/01/20 Eduardo Sharma MD [address] [place] [address] [place] [address] Assigned Sleep Provider 04/02/2005/07 [place] [address] [facility] [address] [place] [address] Assigned Musculoskeletal Provider 04/02/20 08/24/20 Marcelo Artis PA-C [address] [facility] [address] [place] [address] Assigned Musculoskeletal Provider 08/25/20 08/20/21 Rodrigo Man PA-C [address] [place] [address] [place] [address] Assigned Surgical Provider 08/25/20 11/27/20 Noreen Flores APRN FOREST SUPERVISOR [address]305 [facility] [place] [address] Assigned PCP 08/05/22 03/16/23 Agatha Null DPM, Podiatry/Foot and Ankle Surgery [address] [place] [address] [place] [address] Assigned Musculoskeletal Provider 11/04/22 [facility] - [place] [place] [address] [facility] [address] [place] [address] Assigned PCP 07/05/23 12/31/23 documented as of this encounter
--- OUTSIDE RECORDS SUMMARY | 2024-04-03 07:14 | XMS_ITS | Encounter Summary ---
Author Organization [facility] Address [address] [place] [address] Care Team Providers Care Cardroom Drawing Runner Name Role Phone Selma Good APRN PULLING MACHINE OPERATOR Primary Care Pro vider Vanda Guerrero MD Primary Care Provider [phone] Vanda Guerrero MD Unavailable [phone] Jeana-JdNoreen castro APRN PULLING MACHINE OPERATOR Unavailable Jeana-JdNoreen castro APRN, CNP Unavailable JeanaNoreen Garcia APRN PULLING MACHINE OPERATOR Primary Car e Provider Kalyan Galvan Unavailable Unavailable Lashae Trevino [facility] Unavailable [phone] Eduardo Sharma MD Unavailable Rios Monteiro MD Unavailable [phone] Marcelo Artis PA-C Unavailable [phone] Rodrigo Man PA-C Unavailable [phone] Jeana-Noreen Miles APRN PULLING MACHINE OPERATOR Unavailable Sudha Greene NP Primary Care Provider Agatha NullM, Podiatry /Foot and Ankle Surgery Unavailable [facility] Unavailable Encounter Details Date Type Department Care Team (Late st Contact Info) Description 05/28/2012 [facility] [address] [place] [address] [place] [phone] Alejo Casas Social History Tobacco Use Types Packs/Day Years Used Date Smoking Tobacco: Never Smokeless Tobacco: Never Alcohol Use Standard Drinks/Week Comments Yes 0 (1 standard drink = 0.6 oz pur e alcohol) Rare Comments No Sex and Gender Information Value Date Recorded Sex Assigned at Not on file Legal Sex Female 3:19 AM ELECTROMECHANICAL ENGINEER Gender Identity Female 08/26/2020 9:05 PM [...] as of this encounter Care Teams Cardroom Drawing Runner Relationship Specialty Start Date End Date Selma Good APRN PULLING MACHINE OPERATOR [address] [place] [address] [place] [address] PCP - General 04/09/08 04/07/15 Vanda Guerrero MD [address] [place] [address] [place] [address] PCP - General Internal Medicine 04/08/15 01/08/19 Vanda Guerrero MD [address] [place] [address] [place] [address] PCP - Assigned PCP 07/24/16 06/15/18 Noreen Flores APRN PULLING MACHINE OPERATOR [address] [place] [address] [place] [address] PCP - Assigned PCP 06/16/18 08/13/18 Noreen Flores APRN PULLING MACHINE OPERATOR [address] [place] [address] [place] [address] PCP - General Nurse Practitioner 01/09/19 12/12/21 Sudha Greene NP [address] [address] PCP - General 11/01/22 Noreen Flores APRN PULLING MACHINE OPERATOR [address] [place] [address] [place] [address] Assigned PCP 06/16/18 05/26/22 Kalyan Galvan Personal Advocate & Liaison (PAL) 08/08/19 04/26/21 [facility] [address] [place] [address] [place] [id number] Pharmacist Pharmacist 10/14/19 12/01/20 Eduardo Sharma MD [address] [facility] [address] [place] [address] Assigned Sleep Provider 04/02/2005/07 [place] [address] [place] [address] Assigned Musculoskeletal Provider 04/02/20 08/24/20 Marcelo Artis PARejiC [address] [place] [address] Assigned Musculoskeletal Provider 08/25/20 08/20/21 Rodrigo Man PA-C [address] [place] [place] [address] Assigned Surgical Provider 08/25/20 11/27/20 Noreen Flores APRN PULLING MACHINE OPERATOR [address] [facility] [place] [address] Assigned PCP 08/05/22 03/16/23 Agatha Null DPM, Podiatry/Foot and Ankle Surgery [address] [place] [address] [place] [address] Assigned Musculoskeletal Provider 11/04/22 [facility] [address] [facility] DAVID ORDOÑEZ [id number] Assigned PCP 07/05/23 12/31/23 documented as of this encounter
--- OUTSIDE RECORDS SUMMARY | 2024-04-03 07:14 | XMS_ITS | Encounter Summary ---
Author Organization [facility] Address [address] [place] [address] Care Team Providers Care Pneumatic Jack Operator Name Role Phone Vanda Guerrero MD Primary Care Provider [phone] Vanda Guerrero MD Unavailable [phone] Jeana-Noreen Miles APRN STAVE INSPECTOR Unavailable Jeana-Noreen Miles APRN STAVE INSPECTOR Unavailable Jeana-JdNoreen castro DIE WELDER STAVE INSPECTOR Primary Car e Provider Kalyan Galvan Unavailable Unavailable Lashae Trevino [facility] Unavailable Eduardo Sharma MD Unavailable Rios Monteiro MD Unavailable Marcelo Artis PA-C Unavailable Rodrigo Man PA-C Unavailable Jeana-Noreen Miles APRN STAVE INSPECTOR Unavailable Sudha Greene NP Primary Care Provider Agatha Null DPM, Podiatry /Foot and Ankle Surgery Unavailable [facility] Unavailable Encounter Details Date Type Department Care Team (Late st Contact Info) Description 02/11/2016 [place] [phone] Vanda Guerrero MD [address] [place] [address] [place] [address] Social History Tobacco Use Types Packs/Day Years Used Date Smoking Tobacco: Never Smokeless Tobacco: Never Alcohol Use Standard Drinks/Week Comments Yes 0 (1 standard drink = 0.6 oz pur e alcohol) Rare Comments No Sex and Gender Information Value Date Recorded Sex Assigned at Not on file Legal Sex Female 3:19 AM TOE FORMER Gender Identity Female 08/26/2020 9:05 PM [...] documented as of this encounter Care Teams Pneumatic Jack Operator Relationship Specialty Start Date End Date Vanda Guerrero MD [address] [place] [address] [place] [address] PCP - General Internal Medicine 04/08/15 01/08/19 Vanda Guerrero MD [address] [place] [address] [place] [address] PCP - Assigned PCP 07/24/16 06/15/18 Noreen Flores APRN STAVE INSPECTOR [address] [place] [address] [place] [address] PCP - Assigned PCP 06/16/18 08/13/18 Noreen Flores APRN STAVE INSPECTOR [facility] [place] [address] PCP - General Nurse Practitioner 01/09/19 12/12/21 Sudha Greene NP [address] [address] PCP - General 11/01/22 Noreen Flores APRN STAVE INSPECTOR [address] [place] [address] [place] [address] Assigned PCP 06/16/18 05/26/22 Kalyan Galvan Personal Advocate & Liaison (PAL) 08/08/19 04/26/21 Lashae Trevino [facility] [address] [place] [address] [place] [address] Pharmacist Pharmacist 10/14/19 12/01/20 Eduardo Sharma MD [address] [address] Assigned Sleep Provider 04/02/2005/07 [place] [address] [place] [address] 300 [place] [address] Assigned Musculoskeletal Provider 04/02/20 08/24/20 Marcelo Artis PA-C [address] [facility] 300 [place] [address] Assigned Musculoskeletal Provider 08/25/20 08/20/21 Rodrigo Man PA-C [address] [place] [address] Assigned Surgical Provider 08/25/20 11/27/20 Noreen Flores APRN STAVE INSPECTOR [address]305 [facility] [place] [address] Assigned PCP 08/05/22 03/16/23 Agatha Null DPM, Podiatry/Foot and Ankle Surgery [address] [place] [address]157 Assigned Musculoskeletal Provider 11/04/22 [facility] - [facility] [address] [facility] [address] [place] [address] Assigned PCP 07/05/23 12/31/23 documented as of this encounter
--- OUTSIDE RECORDS SUMMARY | 2024-04-03 07:14 | XMS_ITS | Encounter Summary ---
Author Organization [place] Address [address] [place] [address] Care Team Providers Care Petrology Teacher Name Role Phone Selma Good APRN INVESTMENT BANKING ASSOCIATE Primary Care Pro vider Vanda Guerrero MD Primary Care Provider [phone] Vanda Guerrero MD Unavailable [phone] Jeana-JdNoreen castro APRN INVESTMENT BANKING ASSOCIATE Unavailable Jeana-JdNoreen castro APRN, CNP Unavailable JeanaNoreen Garcia APRN INVESTMENT BANKING ASSOCIATE Primary Car e Provider Kalyan Galvan Unavailable Unavailable Lashae Trevino [facility] Unavailable [phone] Eduardo Sharma MD Unavailable Rios Monteiro MD Unavailable [phone] Marcelo Artis PA-C Unavailable [phone] Rodrigo Man PA-C Unavailable [phone] Jeana-Noreen Miles APRN INVESTMENT BANKING ASSOCIATE Unavailable Sudha Greene NP Primary Care Provider Agatha NullM, Podiatry /Foot and Ankle Surgery Unavailable [facility] Unavailable Encounter Details Date Type Department Care Team (Late st Contact Info) Description 12/05/2012 [facility] [address] [place] [address] [place] [phone] Alejo Casas Social History Tobacco Use Types Packs/Day Years Used Date Smoking Tobacco: Never Smokeless Tobacco: Never Alcohol Use Standard Drinks/Week Comments Yes 0 (1 standard drink = 0.6 oz pur e alcohol) Rare Comments No Sex and Gender Information Value Date Recorded Sex Assigned at Not on file Legal Sex Female 3:19 AM NITRATE OPERATOR Gender Identity Female 08/26/2020 9:05 PM [...] documented as of this encounter Care Teams Petrology Teacher Relationship Specialty Start Date End Date Selma Good APRN INVESTMENT BANKING ASSOCIATE [address] [place] [address] [place] [address] PCP - General 04/09/08 04/07/15 Vanda Guerrero MD [address] [place] [address] [place] [address] PCP - General Internal Medicine 04/08/15 01/08/19 Vanda Guerrero MD [address] [place] [address] [place] [address] PCP - Assigned PCP 07/24/16 06/15/18 Noreen Flores APRN INVESTMENT BANKING ASSOCIATE [address] [place] [address] [place] [address] PCP - Assigned PCP 06/16/18 08/13/18 Noreen Flores APRN INVESTMENT BANKING ASSOCIATE [address] [place] [address] [place] [address] PCP - General Nurse Practitioner 01/09/19 12/12/21 Sudha Greene NP [address] [address] PCP - General 11/01/22 Noreen Flores APRN INVESTMENT BANKING ASSOCIATE [address] [place] [address] [place] [address] Assigned PCP 06/16/18 05/26/22 Kalyan Galvan Personal Advocate & Liaison (PAL) 08/08/19 04/26/21 [facility] [address] [place] [address] [place] [phone] Pharmacist Pharmacist 10/14/19 12/01/20 Eduardo Sharma MD [address] [facility] [address] [place] [address] Assigned Sleep Provider 04/02/2005/07 [place] [address] [place] [address] Assigned Musculoskeletal Provider 04/02/20 08/24/20 Marcelo Artis PARejiC [address] [facility] [place] [address] Assigned Musculoskeletal Provider 08/25/20 08/20/21 Rodrigo Man PA-C [address] [place] [place] [address] Assigned Surgical Provider 08/25/20 11/27/20 Noreen Flores APRN INVESTMENT BANKING ASSOCIATE [address] [facility] [place] [address] Assigned PCP 08/05/22 03/16/23 Agatha Null DPM, Podiatry/Foot and Ankle Surgery [address] [place] [address] Assigned Musculoskeletal Provider 11/04/22 [facility] 3[address] [facility] DAV[place] ORDOÑE[place] [id number] Assigned PCP 07/05/23 12/31/23 documented as of this encounter
--- OUTSIDE RECORDS SUMMARY | 2024-04-03 07:15 | XMS_ITS | Encounter Summary ---
Author Organization [facility] Address [address] [place] [address] Care Team Providers Care Supervisor Grading Name Role Phone Selma Good APRN TILE ROOFER Primary Care Pro vider Vanda Guerrero MD Primary Care Provider [phone] Vanda Guerrero MD Unavailable [phone] Jeana-JdNoreen castro APRN TILE ROOFER Unavailable Jeana-JdNoreen castro APRN, CNP Unavailable JeanaNoreen Garcia APRN TILE ROOFER Primary Car e Provider Kalyan Galvan Unavailable Unavailable Lashae Trevino [facility] Unavailable [phone] Eduardo Sharma MD Unavailable Rios Monteiro MD Unavailable [phone] Marcelo Artis PA-C Unavailable [phone] Rodrigo Man PA-C Unavailable [phone] Jeana-Noreen Miles APRN TILE ROOFER Unavailable Sudha Greene NP Primary Care Provider Agatha NullM, Podiatry /Foot and Ankle Surgery Unavailable [facility] Unavailable Encounter Details Date Type Department Care Team (Late st Contact Info) Description 12/14/2009 [facility] Medical Advice [place] [id number] [facility] [place] [phone] Alejo Casas Social History Tobacco Use Types Packs/Day Years Used Date Smoking Tobacco: Never Alcohol Use Standard Drinks/Week Comments Yes 0 (1 standard drink = 0.6 oz pur e alcohol) Rare Comments No Sex and Gender Information Value Date Recorded Sex Assigned at Not on file Legal Sex Female 3:19 AM TECHNOLOGY INTERN Gender Identity Female 08/26/2020 9:05 PM CDT [...] as of this encounter Care Teams Supervisor Grading Relationship Specialty Start Date End Date Selma Good APRN TILE ROOFER [address] [place] [address] [place] [address] PCP - General 04/09/08 04/07/15 Vanda Guerrero MD [address] [place] [address] [place] [address] PCP - General Internal Medicine 04/08/15 01/08/19 Vanda Guerrero MD [address] [place] [address] [place] [address] PCP - Assigned PCP 07/24/16 06/15/18 Noreen Flores APRN TILE ROOFER [address] [place] [address] [place] [address] PCP - Assigned PCP 06/16/18 08/13/18 Noreen Flores APRN TILE ROOFER [address] [place] [address] [place] [address] PCP - General Nurse Practitioner 01/09/19 12/12/21 Sudha Greene NP [address] [address] PCP - General 11/01/22 Noreen Flores APRN TILE ROOFER [address] [place] [address] [place] [address] Assigned PCP 06/16/18 05/26/22 Kalyan Galvan Personal Advocate & Liaison (PAL) 08/08/19 04/26/21 Lashae Trevino [facility] [place] [address] Pharmacist Pharmacist 10/14/19 12/01/20 Eduardo Sharma MD [address] 504945 Assigned Sleep Provider 04/02/2005/07 [place] [address] [place] [address] [place] [address] Assigned Musculoskeletal Provider 04/02/20 08/24/20 Marcelo Artis PA-C [address] [facility] [address] [place] [address] [place] [address] Assigned Musculoskeletal Provider 08/25/20 08/20/21 Rodrigo Man PA-C [address] [place] [address] Assigned Surgical Provider 08/25/20 11/27/20 Noreen Flores APRN TILE ROOFER 3305 [facility] [place] [address] Assigned PCP 08/05/22 03/16/23 Agatha Null DPM, Podiatry/Foot and Ankle Surgery [address] [place] [address] [place] [address] Assigned Musculoskeletal Provider 11/04/22 Clinic - [facility] 3305 [facility] [place] [id number] Assigned PCP 07/05/23 12/31/23 documented as of this encounter
--- OUTSIDE RECORDS SUMMARY | 2024-04-03 07:15 | XMS_ITS | Encounter Summary ---
Author Organization [facility] Address [address] [place] [address] Care Team Providers Care Oracle Dba Name Role Phone Selma Good APRN PUFF IRON OPERATOR Primary Care Pro vider Vanda Guerrero MD Primary Care Provider [phone] Vanda Guerrero MD Unavailable [phone] Jeana-JdNoreen castro APRN PUFF IRON OPERATOR Unavailable Jeana-JdNoreen castro APRN, CNP Unavailable JeanaNoreen Garcia APRN PUFF IRON OPERATOR Primary Car e Provider Kalyan Galvan Unavailable Unavailable Lashae Trevino [facility] Unavailable [phone] Eduardo Sharma MD Unavailable Rios Monteiro MD Unavailable [phone] Marcelo Artis PA-C Unavailable [phone] Rodrigo Man PA-C Unavailable [phone] Jeana-Noreen Miles APRN PUFF IRON OPERATOR Unavailable Sudha Greene NP Primary Care Provider [phone] Agatha NullM, Podiatry /Foot and Ankle Surgery Unavailable [facility] Unavailable [...] on file Legal Sex Female 3:19 AM PRECISION LENS GENERATOR Gender Identity Female 08/26/2020 9:05 PM CDT [...] as of this encounter Care Teams Oracle Dba Relationship Specialty Start Date End Date Selma Good APRN PUFF IRON OPERATOR [address] [facility] [place] [address] PCP - General 04/09/08 04/07/15 Vanda Guerrero MD [address] [place] [address] [place] [address] PCP - General Internal Medicine 04/08/15 01/08/19 Vanda Guerrero MD [address]305 [facility] [place] [address] PCP - Assigned PCP 07/24/16 06/15/18 Noreen Flores APRN PUFF IRON OPERATOR 3305 [facility] [place] [address] PCP - Assigned PCP 06/16/18 08/13/18 Noreen Flores APRN PUFF IRON OPERATOR 3305 [facility] [place] [address] PCP - General Nurse Practitioner 01/09/19 12/12/21 Sudha Greene, [place] [address] [address] PCP - General 11/01/22 oNreen Flores APRN PUFF IRON OPERATOR [address] [place] [address] [place] [address] Assigned PCP 06/16/18 05/26/22 Kalyan Galvan Personal Advocate & Liaison (PAL) 08/08/19 04/26/21 [facility] 1440 [facility] [place] [address] Pharmacist Pharmacist 10/14/19 12/01/20 Eduardo Sharma MD [address] [address] Assigned Sleep Provider 04/02/2005/07 [place] [address] [facility] 300 [place] [address] Assigned Musculoskeletal Provider 04/02/20 08/24/20 Marcelo Artis, PA-C 24279 [facility] 300 [place] [address] Assigned Musculoskeletal Provider 08/25/20 08/20/21 Rodrigo Man PA-C [address] [place] [address] Assigned Surgical Provider 08/25/20 11/27/20 Noreen Flores APRN PUFF IRON OPERATOR 3305 [facility] [place] [address] Assigned PCP 08/05/22 03/16/23 Agatha Null DPM, Podiatry/Foot and Ankle Surgery [address] [place] [address] [place] 859587 Assigned Musculoskeletal Provider 11/04/22 Clinic - [facility] 3305 [facility] [place] [address] Assigned PCP 07/05/23 12/31/23 documented as of this encounter
--- OUTSIDE RECORDS SUMMARY | 2024-04-03 07:15 | XMS_ITS | Encounter Summary ---
Author Organization [facility] Address [address] [place] [address] Care Team Providers Care Kier Tender Name Role Phone Selma Good APRN ROAD CONSULTANT Primary Care Pro vider Vanda Guerrero MD Primary Care Provider [phone] Vanda Guerrero MD Unavailable [phone] Jeana-JdNoreen castro APRN ROAD CONSULTANT Unavailable Jeana-JdNoreen castro APRN, CNP Unavailable JeanaNoreen Garcia APRN ROAD CONSULTANT Primary Car e Provider Kalyan Galvan Unavailable Unavailable Lashae Trevino [facility] Unavailable [phone] Eduardo Sharma MD Unavailable Rios Monteiro MD Unavailable [phone] Marcelo Artis PA-C Unavailable [phone] Rodrigo Man PA-C Unavailable [phone] Jeana-Noreen Miles APRN ROAD CONSULTANT Unavailable Sudha Greene NP Primary Care Provider Agatha NullM, Podiatry /Foot and Ankle Surgery Unavailable [facility] Unavailable Encounter Details Date Type Department Care Team (Late st Contact Info) Description 01/11/2010 [facility] Medical Advice [place] [id number] [facility] [place] [phone] Alejo Casas Social History Tobacco Use Types Packs/Day Years Used Date Smoking Tobacco: Never Alcohol Use Standard Drinks/Week Comments Yes 0 (1 standard drink = 0.6 oz pur e alcohol) Rare Comments No Sex and Gender Information Value Date Recorded Sex Assigned at Not on file Legal Sex Female 3:19 AM PAID INTERNSHIP Gender Identity Female 08/26/2020 9:05 PM CDT [...] as of this encounter Care Teams Kier Tender Relationship Specialty Start Date End Date Selma Good APRN ROAD CONSULTANT [address] [place] [address] [place] [address] PCP - General 04/09/08 04/07/15 Vanda Guerrero MD [address] [place] [address] [place] [address] PCP - General Internal Medicine 04/08/15 01/08/19 Vanda Guerrero MD [address] [place] [address] [place] [address] PCP - Assigned PCP 07/24/16 06/15/[address] CONSULTANT [address] [place] [address] [place] [address] PCP - Assigned PCP 06/16/18 08/13/[address] CONSULTANT [address] [place] [address] [place] [address] PCP - General Nurse Practitioner 01/09/19 12/12/21 Sudha Greene NP [address] [address] PCP - General 11/01/[address] CONSULTANT [address] [place] [address] [place] [address] Assigned PCP 06/16/18 05/26/22 Kalyan Galvan Personal Advocate & Liaison (PAL) 08/08/19 04/26/21 Lashae Trevino [facility] [place] [address] Pharmacist Pharmacist 10/14/19 12/01/20 Eduardo Sharma MD [address] 896385 Assigned Sleep Provider 04/02/2005/07 [place] [address] [place] [address] [place] [address] Assigned Musculoskeletal Provider 04/02/20 08/24/20 Marcelo Artis PA-C [address] [place] [place] [address] Assigned Musculoskeletal Provider 08/25/20 08/20/21 Rodrigo Man PA-C [address] [place] [address] Assigned Surgical Provider 08/25/20 11/27/[address] CONSULTANT [address] [facility] [place] [address] Assigned PCP 08/05/22 03/16/23 Agatha Null DPM, Podiatry/Foot and Ankle Surgery [address] [place] [address] [place] [address] Assigned Musculoskeletal Provider 11/04/22 Clinic - [facility] [address] [facility] [place] [id number] Assigned PCP 07/05/23 12/31/23 documented as of this encounter
--- OUTSIDE RECORDS SUMMARY | 2024-04-03 07:15 | XMS_ITS | Encounter Summary ---
Author Organization [facility] Address [address] [place] [address] Care Team Providers Care Explosive Operator Bomb Name Role Phone Selma Good APRN PEDIATRICIAN Primary Care Pro vider Vanda Guerrero MD Primary Care Provider [phone] Vanda Guerrero MD Unavailable [phone] Jeana-JdNoreen castro APRN, CNP Unavailable Jeana-JdNoreen castro APRN, CNP Unavailable JeanaNoreen Gracia APRN PEDIATRICIAN Primary Car e Provider Kalyan Galvan Unavailable Unavailable Lashae Trevino [facility] Unavailable [phone] Eduardo Sharma MD Unavailable Rios Monteiro MD Unavailable [phone] Marcelo Artis-Aleyda Unavailable [phone] Rodrigo ManC Unavailable [phone] Jeana-Noreen Miles APRN PEDIATRICIAN Unavailable Sudha Greene NP Primary Care Provider [phone] Agatha NullM, Podiatry /Foot and Ankle Surgery Unavailable [facility] Unavailable Reason for Referral * Referral not Required - Closed Specialty Diagnoses / Procedures Referred By Rylie garcia Referred To Contact Diagnoses Upper back pain Selma Good APRN PEDIATRICIAN [address] [facility] [place] [address] Phone: tel: fax: [facility] [address] [place] [address] Phone: tel: Referral ID Status Reason Start Date Expiration Date Visits Re quested Visits Authorized [id number] Closed 01/18/2010 01/18/2010 1 1 Comments Coverage of these services is subject to the terms and limitations of your health insurance plan. Please call member services at your health plan with any benefit or coverage questions. [facility] referral to [facility] (Katelyn Colorado M.D.) [phone]. Any CT, MRI or procedures ordered by your specialist must be performed at a [facility] facility OR coordinated by your clinic's referral office at [phone]. If X-rays, CTs or MRIs have been performed, please contact the facility where they were done, to arrange for sweet pickled fruit maker prior to your scheduled appointment. Please bring this referral request to your appointment and present it to your specialist. Reason for Visit * Reason Onset Date Comments Referral 01/17/2010 Encounter Details Date Type Department Care Team (Late st Contact Info) Description 01/17/[address] 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 Gender Identity Female 08/26/2020 9:05 PM [...] CONSULT PLASTIC SURGERY (01/31/2010) Selma Good APRN PEDIATRICIAN REFERRAL F inal Result documented in this encounter Visit Diagnoses Diagnosis Upper back pain- Primary Pain in thoracic spine documented in this encounter Additional Health Concerns Infection Onset Date Last Indicated Resolved Time Rule Out COVID-19 08/25/2020 08/25/2020 08/26/2020 3:23 PM CDT Rule Out COVID-19 11/26/2022 11/26/2022 11/27/2022 3:38 PM CDT documented as of this encounter Care Teams Explosive Operator Bomb Relationship Specialty Start Date End Date Selma Good APRN PEDIATRICIAN [facility]5 [facility] [place] [address] PCP - General 04/09/08 04/07/15 Vanda Guerrero MD [address] [place] [address] [place] [address] PCP - General Internal Medicine 04/08/15 01/08/19 Vanda Guerrero MD [address] [place] [address] [place] [address] PCP - Assigned PCP 07/24/16 06/15/18 Noreen Flores APRN PEDIATRICIAN [address] [place] [address] [place] [address] PCP - Assigned PCP 06/16/18 08/13/18 Noreen Flores APRN PEDIATRICIAN [address] [facility] [place] [address] PCP - General Nurse Practitioner 01/09/19 12/12/21 Sudha Greene NP [address] [address] PCP - General 11/01/22 [facility]N PEDIATRICIAN [address] [place] [address] [place] [address] Assigned PCP 06/16/18 05/26/22 Kalyan Galvan Personal Advocate & Liaison (PAL) 08/08/19 04/26/21 [facility] [address] [place] [address] [place] [address] Pharmacist Pharmacist 10/14/19 12/01/20 Eduardo Sharma MD [address] [place] [address] Assigned Sleep Provider 04/02/2005/07 [place] [address] [facility] [address] [place] [address] Assigned Musculoskeletal Provider 04/02/20 08/24/20 Marcelo Artis PA-C [address] [facility] [address] [place] [address] Assigned Musculoskeletal Provider 08/25/20 08/20/21 Rodrigo Man PA-C [address] [place] [address] Assigned Surgical Provider 08/25/20 11/27/20 Noreen Flores APRN PEDIATRICIAN [address] [facility] [place] [address] Assigned PCP 08/05/22 03/16/23 Agatha Null DPM, Podiatry/Foot and Ankle Surgery [address] [place] [place] [id number] Assigned Musculoskeletal Provider 11/04/22 Clinic - N[facility] 3305 [facility] [place] [address] Assigned PCP 07/05/23 12/31/23 documented as of this encounter
--- OUTSIDE RECORDS SUMMARY | 2024-04-03 07:15 | XMS_ITS | Encounter Summary ---
Author Organization [facility] Address [address] [place] [address] Care Team Providers Care Skip Hoist Operator Name Role Phone Selma Good APRN HEALTHCARE RECEPTIONIST Primary Care Pro vider Vanda Guerrero MD Primary Care Provider [phone] Vanda Guerrero MD Unavailable [phone] Jeana-JdNoreen castro APRN HEALTHCARE RECEPTIONIST Unavailable Jeana-JdNoreen castro APRN, CNP Unavailable JeanaNoreen Garcia APRN HEALTHCARE RECEPTIONIST Primary Car e Provider Kalyan Galvan Unavailable Unavailable Lashae Trevino [facility] Unavailable [phone] Eduardo Sharma MD Unavailable Rios Monteiro MD Unavailable [phone] Marcelo Artis PA-C Unavailable [phone] Rodrigo Man PA-C Unavailable [phone] Jeana-Noreen Miles APRN HEALTHCARE RECEPTIONIST Unavailable Sudha Greene NP Primary Care Provider Agatha NullM, Podiatry /Foot and Ankle Surgery Unavailable 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 [place] [address] PCP - General 04/09/08 04/07/15 Vanda Guerrero MD [facility] [place] [address] PCP - General Internal Medicine 04/08/15 01/08/19 Vanda Guerrero MD [address] [place] [address] [place] [address] PCP - Assigned PCP 07/24/16 06/15/18 Noreen Flores APRN HEALTHCARE RECEPTIONIST [facility] [place] [address] PCP - Assigned PCP 06/16/18 08/13/18 Noreen Flores APRN HEALTHCARE RECEPTIONIST 3305 [facility] [place] [address] PCP - General Nurse Practitioner 01/09/19 12/12/21 Sudha Greene NP [address] [address] PCP - General 11/01/22 Noreen Flores APRN HEALTHCARE RECEPTIONIST [address] [place] [address] [place] [address] Assigned PCP 06/16/18 05/26/22 Kalyan Galvan Personal Advocate & Liaison (PAL) 08/08/19 04/26/21 Lashae Trevino [facility] [address] [place] [address] [place] [address] Pharmacist Pharmacist 10/14/19 12/01/20 Eduardo Sharma MD [address] [address] Assigned Sleep Provider 04/02/2005/07 Rios Monteiro MD [address] [place] [address] Assigned Musculoskeletal Provider 04/02/20 08/24/20 Marcelo Artis PA-C [address] [address] Assigned Musculoskeletal Provider 08/25/20 08/20/21 Rodrigo Man PA-C [address] [place] [address] Assigned Surgical Provider 08/25/20 11/27/20 Noreen Flores APRN HEALTHCARE RECEPTIONIST 3305 [facility] [place] [address] Assigned PCP 08/05/22 03/16/23 Agatha Null DPM, Podiatry/Foot and Ankle Surgery [address] [place] [address] Assigned Musculoskeletal Provider 11/04/22 [facility] 3305 [facility] [place] [address] Assigned PCP 07/05/23 12/31/23 documented as of this encounter
--- OUTSIDE RECORDS SUMMARY | 2024-04-03 07:15 | XMS_ITS | Encounter Summary ---
Author Organization [facility] Address [address] [place] [address] Care Team Providers Care Speech Therapy Teacher Name Role Phone Selma Good APRN POLYSOMNOGRAPHER Primary Care Pro vider Vanda Guerrero MD Primary Care Provider [phone] Vanda Guerrero MD Unavailable [phone] Jeana-JdNoreen castro APRN, CNP Unavailable Jeana-JdNoreen castro APRN, CNP Unavailable JeanaNoreen Garcia APRN, CNP Primary Car e Provider Kalyan Galvan Unavailable Unavailable Lashae Trevino [facility] Unavailable [phone] Eduardo Sharma MD Unavailable Rios Monteiro MD Unavailable [phone] Marcelo Artis PA-C Unavailable [phone] Rodrigo ManC Unavailable [phone] Jeana-Noreen Miles APRN POLYSOMNOGRAPHER Unavailable Sudha Greene NP Primary Care Provider Agatha NullM, Podiatry /Foot and Ankle Surgery Unavailable [facility] Unavailable Reason for Visit * Reason Onset Date Comments Patient Request 07/01/2009 Encounter Details Date Type Department Care Team (Late st Contact Info) Description 07/01/2009 [facility] Medical Advice [address] [place] [phone] Selma Good APRN POLYSOMNOGRAPHER [address] 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 Gender Identity Female 08/26/2020 9:05 PM [...] as of this encounter Care Teams Speech Therapy Teacher Relationship Specialty Start Date End Date Selma Good, SEAN POLYSOMNOGRAPHER [address] [place] [address] [place] [address] PCP - General 04/09/08 04/07/15 Vanda Guerrero MD [address] [place] [address] [place] [address] PCP - General Internal Medicine 04/08/15 01/08/19 Vanda Guerrero MD [address] [place] [address] [place] [address] PCP - Assigned PCP 07/24/16 06/15/18 Noreen Flores APRN POLYSOMNOGRAPHER [address] [place] [address] [place] [address] PCP - Assigned PCP 06/16/18 08/13/18 Noreen Flores APRN POLYSOMNOGRAPHER [address] [place] [address] [place] [address] PCP - General Nurse Practitioner 01/09/19 12/12/21 Sudha Greene NP [address] [address] PCP - General 11/01/22 Noreen Flores APRN POLYSOMNOGRAPHER [address] [place] [address] [place] [address] Assigned PCP 06/16/18 05/26/22 Kalyan Galvan Personal Advocate & Liaison (PAL) 08/08/19 04/26/21 Lashae Trevino, [facility] [address] [facility] [place] [address] Pharmacist Pharmacist 10/14/19 12/01/20 Eduardo Sharma MD [address] [facility] 103 [place], [place] 76[address]85 Assigned Sleep Provider 04/02/2005/07 [place] [address] [facility] 300 [place] [address] Assigned Musculoskeletal Provider 04/02/20 08/24/20 Marcelo Artis PA-C [address] [facility] 300 [place] [id number] Assigned Musculoskeletal Provider 08/25/20 08/20/21 Rodrigo Man PA-C [address] [facility] [address] [place] [address] Assigned Surgical Provider 08/25/20 11/27/20 Noreen Flores APRN POLYSOMNOGRAPHER [address] [place] [address] [place] [id number] Assigned PCP 08/05/22 03/16/23 Agatha Null DPM, Podiatry/Foot and Ankle Surgery [address] [address] [facility] 300 [place] [address] Assigned Musculoskeletal Provider 11/04/22 [facility] [address] [place] [address] [place] [id number] Assigned PCP 07/05/23 12/31/23 documented as of this encounter
--- OUTSIDE RECORDS SUMMARY | 2024-04-03 07:15 | XMS_ITS | Encounter Summary ---
Author Organization [place] Address [address] [place] [address] Care Team Providers Care Gas Producer Name Role Phone Selma Good APRN KNOT PICKER CLOTH Primary Care Pro vider Vanda Guerrero MD Primary Care Provider [phone] Vanda Guerrero MD Unavailable [phone] Jeana-JdNoreen castro APRN, CNP Unavailable Jeana-JdNoreen castro APRN, CNP Unavailable Jeana-JdNoreen castro APRN KNOT PICKER CLOTH Primary Car e Provider Kalyan Galvan Unavailable Unavailable Lashae Trevino [facility] Unavailable [phone] Eduardo Sharma MD Unavailable Rios Monteiro MD Unavailable [phone] Marcelo Artis PA-C Unavailable [phone] Rodrigo ManC Unavailable [phone] Jeana-Noreen Miles APRN KNOT PICKER CLOTH Unavailable Sudha Greene NP Primary Care Provider Agatha NullM, Podiatry /Foot and Ankle Surgery Unavailable [facility] Unavailable Reason for Visit * Reason Onset Date Comments Orders 01/17/2010 mammo and U/Ss Encounter Details Date Type Department Care Team (Late st Contact Info) Description 01/17/2010 MyC Medical Advice [address] [place] [phone] Selma Good, SEAN KNOT PICKER CLOTH [address] [place] [address] [place] [id number] Orders (mammo and U/Ss) Social History Tobacco Use Types Packs/Day Years Used Date Smoking Tobacco: Never Alcohol Use Standard Drinks/Week Comments Yes 0 (1 standard drink = 0.6 oz pur e alcohol) Rare Comments No Sex and Gender Information Value Date Recorded Sex Assigned at Not on file 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 Gender Identity Female 08/26/2020 9:05 PM [...] as of this encounter Care Teams Gas Producer Relationship Specialty Start Date End Date Selma Good, SEAN KNOT PICKER CLOTH [address] [place] [address] [place] [address] PCP - General 04/09/08 04/07/15 Vanda Guerrero MD [address] [place] [address] [place] [address] PCP - General Internal Medicine 04/08/15 01/08/19 Vanda Guerrero MD [address] [place] [address] [place] [address] PCP - Assigned PCP 07/24/16 06/15/18 Noreen Flores APRN KNOT PICKER CLOTH [address] [place] [address] [place] [address] PCP - Assigned PCP 06/16/18 08/13/18 Norene Flores APRN KNOT PICKER CLOTH [address] [place] [address] [place] [address] PCP - General Nurse Practitioner 01/09/19 12/12/21 Sudha Greene NP [address] [address] PCP - General 11/01/22 Noreen Flores APRN KNOT PICKER CLOTH [address] [place] [address] [place] [address] Assigned PCP 06/16/18 05/26/22 Kalyan Galvan Personal Advocate & Liaison (PAL) 08/08/19 04/26/21 [facility] [address] [facility] [place] [address] Pharmacist Pharmacist 10/14/19 12/01/20 Eduardo Sharma MD [address] [facility] [address] [place] [id number] Assigned Sleep Provider 04/02/2005/07 [place] [address] [facility] [address] [place], [place] [address] Assigned Musculoskeletal Provider 04/02/20 08/24/20 Marcelo Artis PA-C [address] [address] Assigned Musculoskeletal Provider 08/25/20 08/20/21 Rodrigo Man PA-C [address] [facility] [address] [place] [address] Assigned Surgical Provider 08/25/20 11/27/20 Noreen Flores APRN KNOT PICKER CLOTH [address] [place] [address] [place] [address] Assigned PCP 08/05/22 03/16/23 Agatha Null DPM, Podiatry/Foot and Ankle Surgery [address] [place] [address] [address] [place] [address] Assigned Musculoskeletal Provider 11/04/22 [facility] [address] [place], [place] [address] [address] Assigned PCP 07/05/23 12/31/23 documented as of this encounter
--- OUTSIDE RECORDS SUMMARY | 2024-04-03 07:15 | XMS_ITS | Encounter Summary ---
Author Organization [facility] Address [address] [place] [address] Care Team Providers Care Health Services Director Name Role Phone Unassigned, Provider Primary Care Provider Unava ilable Encounter Details Date Type Department Care Team (Late st Contact Info) Description 08/23/2004 [facility] [address] [place] [address] Gavin Justice MD [address] [place] [address] [id number] Social History Tobacco Use Types Packs/Day Years [...] * Jerome Garg - 08/23/2004 12:00 AM DECKHAND MAINTENANCE DATE OF SURGERY: August 23, 2004. STAFF [...] Justice MD Transcribed: 08/24/2004 07:37:56 Doc #: [id number] cc: Jose Colin, DO, Referring DO NOT SIGN UNLESS PRESENT FOR PROCEDURE I attest that I was present for and participated in the ma portions of this procedure(s) in compliance with the Health Care Financing Administration Teaching Physician Guidelines. Signed Date Regions Staff Physician 1 Page 2 Patient Name: PADMINI CHOI Visit Date: 08/23/2004 OUTPATIENT OPERATIVE REPORT CONFIDENTIAL MEDICAL RECORD [address] [phone] Page 1 Patient: PADMINI CHOI Location: [facility] HPN: [id number] Date of : 1965 Visit Date: 08/23/2004 OUTPATIENT OPERATIVE REPORT documented in this encounter Plan of Treatment Not on file documented as of this encounter Visit Diagnoses Not on filedocumented in this encounter Care Teams Health Services Director Relationship Specialty Start Date End Date Unassigned, Provider [address] [place] [address] PCP - General 09/18/08 documented as of this encounter
--- OUTSIDE RECORDS SUMMARY | 2024-04-03 07:15 | XMS_ITS | Encounter Summary ---
Author Organization [place] Address [address] [place] [address] Care Team Providers Care Cooker Pie Filling Name Role Phone Selma Good APRN FIRE POT OPERATOR Primary Care Pro vider Vanda Guerrero MD Primary Care Provider [phone] Vanda Guerrero MD Unavailable [phone] Jeana-JdNoreen castro APRN, CNP Unavailable Jeana-JdNoreen castro APRN, CNP Unavailable JeanaNoreen Garcia APRN, CNP Primary Car e Provider Kalyan Galvan Unavailable Unavailable Lashae Trevino [facility] Unavailable [phone] Eduardo Sharma MD Unavailable Rios Monteiro MD Unavailable [phone] Marcelo Artis PA-C Unavailable [phone] Rodrigo ManC Unavailable [phone] Jeana-Noreen Miles APRN FIRE POT OPERATOR Unavailable Sudha Greene NP Primary Care Provider Agatha NullM, Podiatry /Foot and Ankle Surgery Unavailable [facility] Unavailable Reason for Visit * Reason Onset Date Comments Patient Request 01/26/2010 Encounter Details Date Type Department Care Team (Late st Contact Info) Description 01/26/2010 MyC Medical Advice [address] [place] [phone] Selma Good APRN FIRE POT OPERATOR [address] [place] [address] [place] [address] Patient Request Social History Tobacco Use Types Packs/Day Years Used Date Smoking Tobacco: Never Alcohol Use Standard Drinks/Week Comments Yes 0 (1 standard drink = 0.6 oz pur e alcohol) Rare Comments No Sex and Gender Information Value Date Recorded Sex Assigned at Not on file 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 Gender Identity Female 08/26/2020 9:05 PM CDT [...] documented as of this encounter Care Teams Cooker Pie Filling Relationship Specialty Start Date End Date Selma Good, SEAN FIRE POT OPERATOR [address] [place] [address] [place] [address] PCP - General 04/09/08 04/07/15 Vanda Guerrero MD [address] [place] [address] [place] [address] PCP - General Internal Medicine 04/08/15 01/08/19 Vanda Guerrero MD [address] [place] [address] [place] [address] PCP - Assigned PCP 07/24/16 06/15/18 Noreen Flores APRN FIRE POT OPERATOR [address] [place] [address] [place] [address] PCP - Assigned PCP 06/16/18 08/13/18 Noreen Flores APRN FIRE POT OPERATOR [address] [place] [address] [place] [address] PCP - General Nurse Practitioner 01/09/19 12/12/21 Sudha Greene, MAURICIO [address] [address] PCP - General 11/01/22 Noreen Flores APRN FIRE POT OPERATOR [address] [place] [address] [place] [address] Assigned PCP 06/16/18 05/26/22 Kalyan Galvan Personal Advocate & Liaison (PAL) 08/08/19 04/26/21 [facility] [address] [place] [address] [place] [address] Pharmacist Pharmacist 10/14/19 12/01/20 Eduardo Sharma MD [address] [facility] [address] [place] [address]28565 Assigned Sleep Provider 04/02/2005/07 [place] [address] [facility] [address] [place] [address] Assigned Musculoskeletal Provider 04/02/20 08/24/20 Marcelo Artis PA-C [address] [facility] [address] [place] [address] Assigned Musculoskeletal Provider 08/25/20 08/20/21 Rodrigo Man PA-C [address] [facility] [address] [place] [address] Assigned Surgical Provider 08/25/20 11/27/20 Noreen Flores APRN CNP [address] [place] [address] [place] [address] Assigned PCP 08/05/22 03/16/23 Agatha Null DPM, Podiatry/Foot and Ankle Surgery [id number] [place] [address] 300 [place] [address] Assigned Musculoskeletal Provider 11/04/22 [facility] [place] [facility] [address] [facility] [place] [address] Assigned PCP 07/05/23 12/31/23 documented as of this encounter
--- OUTSIDE RECORDS SUMMARY | 2024-04-03 07:15 | XMS_ITS | Encounter Summary ---
Author Organization [facility] Address [address] [place] [address] Care Team Providers Care It Risk Advisor Name Role Phone Selma Good APRN CAR HOP Primary Care Pro vider Vanda Guerrero MD Primary Care Provider [phone] Vanda Guerrero MD Unavailable [phone] Jeana-JdNoreen castro APRN, CNP Unavailable Jeana-JdNoreen castro APRN, CNP Unavailable JeanaNoreen Garcia APRN CAR HOP Primary Car e Provider Kalyan Galvan Unavailable Unavailable Lashae Trevino [facility] Unavailable [phone] Eduardo Sharma MD Unavailable Rios Monteiro MD Unavailable [phone] Marcelo Artis-Aleyda Unavailable [phone] Rodrigo ManC Unavailable [phone] Jeana-Noreen Miles APRN CAR HOP Unavailable Sudha Greene NP Primary Care Provider Agatha NullM, Podiatry /Foot and Ankle Surgery Unavailable [facility] Unavailable Reason for Referral * Referral not Required - Closed Specialty Diagnoses / Procedures Referred By Rylie garcia Referred To Contact Diagnoses Migraine headaches Selma Good APRN CAR HOP [address] [facility] [place] [address] Phone: tel: fax: [facility] [address] [place] [address] Phone: tel: fax: Referral ID Status Reason Start Date Expiration Date Visits Re quested Visits Authorized [id number] Closed 09/18/2008 06/10/2011 1 1 Comments Coverage of these services is subject to the terms and limitations of your health insurance plan. Please call member services at your health plan with any benefit or coverage questions. [facility] referral to [facility] at [phone]. . Any CT, MRI or procedures ordered by your specialist must be performed at a [facility] facility OR coordinated by your clinic's referral office at [phone]. If X-rays, CTs or MRIs have been performed, please contact the facility where they were done, to arrange for package pick up prior to your scheduled appointment. Please bring this referral request to your appointment and present it to your specialist. Reason for Visit * Reason Onset Date Comments Medication Request 09/17/2008 migraine med Encounter Details Date Type Department Care Team (Late st Contact Info) Description 09/17/2008 [facility] [place]ice [facility] [address] [facility] [place] [phone] Selma Good APRN CAR HOP [address] [facility] [place] [address] Medication Request (migraine med) Social History Tobacco Use Types Packs/Day Years Used Date Smoking Tobacco: Never Alcohol Use Standard Drinks/Week Comments Yes 0 (1 standard drink = 0.6 oz pur e alcohol) Rare Comments No Sex and Gender Information Value Date Recorded Sex Assigned at Not on file 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 Ivette Allan M.A. * Telephone Encounter - Selma Good - 09/18/2008 8:18 AM CDT It appears in my note from when I saw her, I recommended referral to neuro, which she declined at that time. It appears imitrex 'knocked her out.' I would recommend [facility] neurology. documented in this encounter Plan of Treatment Not on file documented as of this encounter Procedures Procedure Name Priority Date/Time Associated Diagnosis Comments ZZ CONSULT NEUROLOGY Routine 11/15/2010 Migraine headaches documented in this encounter Results * CONSULT NEUROLOGY (11/15/2010) Selma Good PROGRAM MANAGER ENVIRONMENTAL PLANNING CAR HOP REFERRAL E dited documented in this encounter Visit Diagnoses Diagnosis Migraine headaches- Primary Migraine, unspecified, without mention of intractable migraine without mention of status migrainosus documented in this encounter Additional Health Concerns Infection Onset Date Last Indicated Resolved Time Rule Out COVID-19 08/25/2020 08/25/2020 08/26/2020 3:23 PM CDT Rule Out COVID-19 11/26/2022 11/26/2022 11/27/2022 3:38 PM CDT documented as of this encounter Care Teams It Risk Advisor Relationship Specialty Start Date End Date Selma Good, PROGRAM MANAGER ENVIRONMENTAL PLANNING CAR HOP [address] [facility] [address] [place] [address] PCP - General 04/09/08 04/07/15 Vanda Guerrero MD [address] [place] [address] [place] [address] PCP - General Internal Medicine 04/08/15 01/08/19 Vanda Guerrero MD [address] [place] [address] [place] [address] PCP - Assigned PCP 07/24/16 06/15/18 Noreen Flores APRN CAR HOP [address] [place] [address] [place] [address] PCP - Assigned PCP 06/16/18 08/13/18 Noreen Flores APRN CAR HOP [address] [place] [address] [place] [address] PCP - General Nurse Practitioner 01/09/19 12/12/21 Sudha Greene, MAURICIO [address] [address] PCP - General 11/01/22 Noreen Flores APRN CAR HOP [address] [place] [address] [place] [address] Assigned PCP 06/16/18 05/26/22 Kalyan Galvan Personal Advocate & Liaison (PAL) 08/08/19 04/26/21 Lashae Trevino, [facility] [address] [place] [address] Pharmacist Pharmacist 10/14/19 12/01/20 Eduardo Sharma MD [address] [place] [address] Assigned Sleep Provider 04/02/2005/07 [place] [id number] [place] [address] [address] [place] [address] Assigned Musculoskeletal Provider 04/02/20 08/24/20 Marcelo Artis PA-C [address] [place] [address] [address] [place] [address] Assigned Musculoskeletal Provider 08/25/20 08/20/21 Rodrigo Man PA-C [address] [facility] [address] [place] [address] Assigned Surgical Provider 08/25/20 11/27/20 Noreen Flores APRN CAR HOP [address] [place] [address] [place] [id number] Assigned PCP 08/05/22 03/16/23 Agatha Null DPM, Podiatry/Foot and Ankle Surgery [address] [place] [address] [facility] [address] [place] [address] Assigned Musculoskeletal Provider 11/04/22 Clinic - [place] [facility] [address] [facility] [place] [address] Assigned PCP 07/05/23 12/31/23 documented as of this encounter
--- OUTSIDE RECORDS SUMMARY | 2024-04-03 07:15 | XMS_ITS | Encounter Summary ---
Author Organization [place] Address [address] [place] [address] Care Team Providers Care Guest Relations Officer Name Role Phone Selma Good APRN ENGINEERING PSYCHOLOGIST Primary Care Pro vider Vanda Guerrero MD Primary Care Provider [phone] Vanda Guerrero MD Unavailable [phone] Jeana-JdNoreen castro APRN ENGINEERING PSYCHOLOGIST Unavailable Jeana-JdNoreen castro APRN, CNP Unavailable JeanaNoreen Garcia APRN ENGINEERING PSYCHOLOGIST Primary Car e Provider Kalyan Galvan Unavailable Unavailable Lashae Trevino [facility] Unavailable [phone] Eduardo Sharma MD Unavailable Rios Monteiro MD Unavailable [phone] Marcelo Artis PA-C Unavailable [phone] Rodrigo Man PA-C Unavailable [phone] Jeana-Noreen Miles APRN ENGINEERING PSYCHOLOGIST Unavailable Sudha Greene NP Primary Care Provider Agatha NullM, Podiatry /Foot and Ankle Surgery Unavailable [facility] Unavailable Encounter Details Date Type [...] on file 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 Gender Identity Female 08/26/2020 9:05 PM CDT [...] as of this encounter Care Teams Guest Relations Officer Relationship Specialty Start Date End Date Selma Good APRN ENGINEERING PSYCHOLOGIST [address] [facility] [place] [address] PCP - General 04/09/08 04/07/15 Vanda Guerrero MD [facility] [place] [address] PCP - General Internal Medicine 04/08/15 01/08/19 Vanda Guerrero MD [address] [place] [address] [place] [address] PCP - Assigned PCP 07/24/16 06/15/18 Noreen Flores APRN ENGINEERING PSYCHOLOGIST [facility] [place] [address] PCP - Assigned PCP 06/16/18 08/13/18 Noreen Flores APRN ENGINEERING PSYCHOLOGIST [address] [facility] [place] [address] PCP - General Nurse Practitioner 01/09/19 12/12/21 Sudha Greene NP [address] [address] PCP - General 11/01/22 Noreen Flores APRN ENGINEERING PSYCHOLOGIST [address] [place] [address] [place] [address] Assigned PCP 06/16/18 05/26/22 Kalyan Galvan Personal Advocate & Liaison (PAL) 08/08/19 04/26/21 Lashae Trevino [facility] [address] [place] [address] [place] [address] Pharmacist Pharmacist 10/14/19 12/01/20 Eduardo Sharma MD [address] [address] Assigned Sleep Provider 04/02/2005/07 Rios Monteiro MD [address] [place] [address] Assigned Musculoskeletal Provider 04/02/20 08/24/20 Marcelo Artis PA-C [address] [address] Assigned Musculoskeletal Provider 08/25/20 08/20/21 Rodrigo Man PA-C [address] [place] [address] Assigned Surgical Provider 08/25/20 11/27/20 Noreen Flores APRN ENGINEERING PSYCHOLOGIST [address] [facility] [place] [address] Assigned PCP 08/05/22 03/16/23 Agatha Null DPM, Podiatry/Foot and Ankle Surgery [address] [place] [address] [place] [address] Assigned Musculoskeletal Provider 11/04/22 [facility] [place] [facility] [address] [facility] [place] [address] Assigned PCP 07/05/23 12/31/23 documented as of this encounter
--- OUTSIDE RECORDS SUMMARY | 2024-04-03 07:15 | XMS_ITS | Encounter Summary ---
Author Organization [facility] Address [address], [place] [address] Care Team Providers Care Boiler Mechanic Name Role Phone Unassigned, Provider Primary Care Provider Unava ilable Encounter Details Date Type Department Care Team (Latest Contact Info) Description 07/26/2004 [facility] Gavin Justice MD [address] [place] [address] Social History Tobacco Use Types Packs/Day Years [...] * Jerome Garg - 07/26/2004 12:00 AM FOOTBALL SCOUT DATE OF SURGERY: 07/26/2004 STAFF SURGEON: Gavin [...] nerve impingement. Therefore, she is referred to [facility] pain clinic for evaluation for epidural steroid [...] Justice MD Transcribed: 07/26/2004 14:26:15 Doc #: [id number] cc: Jose Colin, , Primary/Referring DO NOT SIGN UNLESS PRESENT FOR PROCEDURE I attest that I was present for and participated in the ma portions of this procedure(s) in compliance with the Health Care Financing Administration Teaching Physician Guidelines. Signed Date Regions Staff Physician 1 Page 2 Patient Name: PADMINI CHOI Visit Date: 07/26/2004 OUTPATIENT OPERATIVE REPORT CONFIDENTIAL MEDICAL RECORD [address] [place] [address] Page 1 Patient: PADMINI CHOI [id number] Date of : 1965 Visit Date: 07/26/2004 OUTPATIENT OPERATIVE REPORT documented in this encounter Plan of Treatment Not on file documented as of this encounter Visit Diagnoses Not on filedocumented in this encounter Care Teams Boiler Mechanic Relationship Specialty Start Date End Date Unassigned, Provider [address] [place] [address] PCP - General 09/18/08 documented as of this encounter
--- OUTSIDE RECORDS SUMMARY | 2024-04-03 07:15 | XMS_ITS | Clinical Summary ---
Author Organization [facility] Address [address] [place] [address] Care Team Providers Care Debt Management Counselor Name Role Phone Unassigned, Provider Primary Care Provider Unava ilable Source Comments You are receiving this document as you are listed as the primary care provider,follow-up provider, or the patient has been referred to you for consultation.This is in compliance with the Medicare and[facility] Hospitalca[facility] EHR Incentive Program,which states Providers who transition their patient to another setting of careor provider of care or refers their patient to another provider of care shouldprovide summary care record for each transition of care or referral. [facility] Center[facility] Allergies Active Allergy Reactions Criticality Noted Date [...] 03/09/2011,04/08/2010, 8 Influenza IIV4 (Quadrivalent ) 0.5mL (92588) 06/12/2017,03/23/2016,04/08/2015, 013 PPSV23 (Pneumovax) 10/06/2014 Pfizer Monovalent [...] Comments Blood Pressure 120/62 05/25/2021 11:09 AM CABLE PULLER Pulse 59 05/25/2021 11:09 AM CABLE PULLER Temperature 36.7 ??C (98.1 ??F) 05/25/2021 1 1:09 AM CABLE PULLER Respiratory Rate 16 08/23/2007 1:13 PM CDT Oxygen Saturation 97% 08/23/2007 1:13 PM CDT Inhaled Oxygen Concentration - - Weight 78.8 kg (173 lb 12.8 oz) 021 11:09 AM CABLE PULLER Height 160 cm (5' 3) 08/23/2007 1:13 [...] this topic Medical Devices Implanted Type Area Director Mba Device Identifier Shelf Expiration Date Model / Serial / Lot Kit Infuse Bone Graft Sm - [id number] Implanted:Qty : 1 on 04/15/2007 at [facility] BIOLOGIC Left: BACK Sof[employer] [id number] / / [id number] Bone Canc Crushed 60cc - [id number] Implanted:Qty : 1 on 04/15/[address] [facility] Left: BACK Henna [id number] / OTS [id number] / Device Cage Ray Thrd 12x26 - [id number] Implanted:Qty : 2 on 04/15/2007 at [facility] DEVICE Left: BACK [place] 7-1226 / / [id number] Cage Ray 60n06ms - [id number] Implanted:Qty : 1 on 04/15/2007 at [facility] Left: BACK [place] 05/11/2008 7-1966 / / [id number] Procedures Procedure Name Priority Date/Time Associated Diagnosis [...] 8:33 AM CDT) Cholesterol 188 <200 mg/dl [facility] Triglyceride 95 <200 mg/dl [facility] HDL 46 >35 mg/dl [facility] LDL, Calc. 123 mg/dl [facility] Hours Fasting 12 hours [facility] 10/07/2005 8:33 AM CDT 10/07/2005 8:34 AM CDT Yun Flynn MD LAB_1 Performing Organization Address City/State/[facility] Co de Phone Number [facility] [address] [place] [id number] * PAP TEST, ROUTINE (10/02/2005 12:00 AM CDT) Cytology, Pap (NOTE) Lens Finisher Cytology Report Patient Name: PADMINI CHOI Taken: [...] Signed Out By ? Kelly Elmore MD ([id number]) Rakel Valle, ??CT (ASCP) ?Pap Smear History ?Date of Last Menstrual Period: ? 09/22/05 ?Contraceptive History: ?Not Stated/Unknown ?Other Clinical Conditions: ?LAST PAP: N/A HPV reflex testing requested with interpretation of ASCUS ? [facility] 10/02/2005 10/06/2005 9:5 8 AM CDT Yun Flynn MD LAB_1 [place], [place] [phone] * MAMMOGRAM, SCREENING (05/15/2003) Anatomical Region Laterality Modality Breast Other Narrative Transcriptions Dusty Gonsalves - 05/15/2003 12:00 AM CSTCLINICAL DATA: Screening. EXAMINATION: Bilateral mammogram, 05/15/03. ACR BIRADS CATEGORY 1 - NEGATIVE MAMMOGRAM. FINDINGS: Nothing for malignancy. Dusty Gonsalves MD 10:42 A cc: AUDREY [facility] Radiology SP Blank Perez NIGHT COORDINATOR, MILITARY ANALYST RAD_BI from Last 3 Months or Most Recently Relevant to Health Maintenance Advance Directives * Full Code (Latest Code Status on File) Date Activated Date Inactivated Comments 04/15/2007 8:03 AM 04/19/2007 8:53 PM Care Teams Debt Management Counselor Relationship Specialty Start Date End Date Unassigned, Provider [address] [place] [address] PCP - General 09/18/08
--- OUTSIDE RECORDS SUMMARY | 2024-04-03 07:15 | XMS_ITS | Encounter Summary ---
Author Organization [facility] Address [address] [place] [address] Care Team Providers Care Oral Surgery Physician Name Role Phone Selma Good APRN AGRICULTURE INTERNSHIP Primary Care Pro vider Vanda Guerrero MD Primary Care Provider [phone] Vanda Guerrero MD Unavailable [phone] Jeana-JdNoreen castro APRN, CNP Unavailable Jeana-JdNoreen castro APRN, CNP Unavailable JeanaNoreen Garcia APRN AGRICULTURE INTERNSHIP Primary Car e Provider Kalyan Galvan Unavailable Unavailable Lashae Trevino [facility] Unavailable [phone] Eduardo Sharma MD Unavailable Rios Monteiro MD Unavailable [phone] Marcelo Artis PA-C Unavailable [phone] Rodrigo ManC Unavailable [phone] Jeana-Noreen Miles APRN AGRICULTURE INTERNSHIP Unavailable Sudha Greene NP Primary Care Provider Agatha NullM, Podiatry /Foot and Ankle Surgery Unavailable [facility] Unavailable Reason for Visit * Reason Onset Date Comments Cellulitis 09/13/2010 not completely g one Encounter Details Date Type Department Care Team (Late st Contact Info) Description 09/13/2010 MyC Medical Advice [address] [place] [phone] Selma Good, SOCIAL SERVICES MANAGER [employer]NS[employer]IP [address] [place] [address] [place] [address] Cellulitis (not completely gone ) Social History Tobacco Use Types Packs/Day Years Used Date Smoking Tobacco: Never Alcohol Use Standard Drinks/Week Comments Yes 0 (1 standard drink = 0.6 oz pur e alcohol) Rare Comments No Sex and Gender Information Value Date Recorded Sex Assigned at Not on file 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 Gender Identity Female 08/26/2020 9:05 PM [...] of this encounter Care Teams Oral Surgery Physician Relationship Specialty Start Date End Date Selma Good, SEAN [employer]ICULTURE INTERNSHIP [address] [place] [address] [place] [address] PCP - General 04/09/08 04/07/15 Vanda Guerrero MD [address] [place] [address] [place] [address] PCP - General Internal Medicine 04/08/15 01/08/19 Vanda Guerrero MD [address] [place] [address] [place] [address] PCP - Assigned PCP 07/24/16 06/15/18 Noreen Flores APRN [employer]URE INTERNSHIP [address] [place] [address] [place] [address] PCP - Assigned PCP 06/16/18 08/13/18 Noreen Flores APRN [employer]URE INTERNSHIP [address] [place] [address] [place] [address] PCP - General Nurse Practitioner 01/09/19 12/12/21 Sudha Greene NP [address] [address] PCP - General 11/01/22 Noreen Flores APRN [employer]URE INTERNSHIP [address] [place] [address] [place] [address] Assigned PCP 06/16/18 05/26/22 Kalyan Galvan Personal Advocate & Liaison (PAL) 08/08/19 04/26/21 Lashae Trevino [facility] [address] [facility] [place] [address] Pharmacist Pharmacist 10/14/19 12/01/20 Eduardo Sharma MD [address] [facility] [address] [place] [id number] Assigned Sleep Provider 04/02/2005/07 [place] [address] [facility] [address] [place] [address] Assigned Musculoskeletal Provider 04/02/20 08/24/20 Marcelo Artis PA-C [address] [facility] [address] [place] [address] Assigned Musculoskeletal Provider 08/25/20 08/20/21 Rodrigo Man PA-C [address] [facility] [address] [place] [address] Assigned Surgical Provider 08/25/20 11/27/20 Noreen Flores APRN AGR[employer]URE INTERNSHIP [address] [place] [address] [place] [address] Assigned PCP 08/05/22 03/16/23 Agatha Null DPM, Podiatry/Foot and Ankle Surgery [address] [facility] [address] [place] [address] Assigned Musculoskeletal Provider 11/04/22 Aly - [place]ita [place] [facility] [address] [place] [address] [place] [address] Assigned PCP 07/05/23 12/31/23 documented as of this encounter
--- OUTSIDE RECORDS SUMMARY | 2024-04-03 07:15 | XMS_ITS | Encounter Summary ---
Author Organization [facility] Address [address] [place] [address] Care Team Providers Care Fire Extinguisher Repairer Name Role Phone Selma Good APRN SILK PRESSER Primary Care Pro vider Vanda Guerrero MD Primary Care Provider [phone] Vanda Guerrero MD Unavailable [phone] Jeana-JdNoreen castro APRN, CNP Unavailable Jeana-JdNoreen castro APRN, CNP Unavailable JeanaNoreen Garcia APRN, CNP Primary Car e Provider Kalyan Galvan Unavailable Unavailable Lashae Trevino [facility] Unavailable [phone] Eduardo Sharma MD Unavailable Rios Monteiro MD Unavailable [phone] Marcelo Artis PA-C Unavailable [phone] Rodrigo ManC Unavailable [phone] Jeana-Noreen Miles APRN SILK PRESSER Unavailable Sudha Greene NP Primary Care Provider [phone] Agatha NullM, Podiatry /Foot and Ankle Surgery Unavailable [facility] Unavailable Reason for Visit * Reason Onset Date Comments Appointment 08/10/2010 next diabetes? Encounter Details Date Type Department Care Team (Late st Contact Info) Description 08/10/2010 MyC Medical Advice [address] [place] [phone] Selma Good APRN SILK PRESSER [address] [place] [address] [place] [address] Appointment (next diabetes? ) Social History Tobacco Use Types Packs/Day Years Used Date Smoking Tobacco: Never Alcohol Use Standard Drinks/Week Comments Yes 0 (1 standard drink = 0.6 oz pur e alcohol) Rare Comments No Sex and Gender Information Value Date Recorded Sex Assigned at Not on file Legal Sex Female 3:19 AM CLINICAL STAFF ANESTHESIOLOGIST Gender Identity Female 08/26/2020 9:05 PM CDT [...] as of this encounter Care Teams Fire Extinguisher Repairer Relationship Specialty Start Date End Date Selma Good, MALT HOUSE OPERATOR SILK PRESSER [address] [place] [address] [place] [address] PCP - General 04/09/08 04/07/15 Vanda Guerrero MD [address] [place] [address] [place] [address] PCP - General Internal Medicine 04/08/15 01/08/19 Vanda Guerrero MD [address] [place] [address] [place] [address] PCP - Assigned PCP 07/24/16 06/15/18 Noreen Flores APRN SILK PRESSER [address] [place] [address] [place] [address] PCP - Assigned PCP 06/16/18 08/13/18 Noreen Flores APRN SILK PRESSER [address] [place] [address] [place] [address] PCP - General Nurse Practitioner 01/09/19 12/12/21 Suhda Greene NP [address] [address] PCP - General 11/01/22 Noreen Flores APRN SILK PRESSER [address] [place] [address] [place] [address] Assigned PCP 06/16/18 05/26/22 Kalyan Galvan Personal Advocate & Liaison (PAL) 08/08/19 04/26/21 Lashae Trevino, [facility] [address]40 [facility] [place] [address] Pharmacist Pharmacist 10/14/19 12/01/20 Eduardo Sharma MD [address] [address] [place] [id number] Assigned Sleep Provider 04/02/2005/07 [place] [address] [facility] [address] [place] [address] Assigned Musculoskeletal Provider 04/02/20 08/24/20 Marcelo Artis PA-C [address] [facility] 300 [place] [address] Assigned Musculoskeletal Provider 08/25/20 08/20/21 Rodrigo Man PA-C [address] [facility] [address] [place] [address] Assigned Surgical Provider 08/25/20 11/27/20 Noreen Flores APRN SILK PRESSER [address] [place] [address] [place] [address] Assigned PCP 08/05/22 03/16/23 Agatha Null DPM, Podiatry/Foot and Ankle Surgery [address] [place] [address] [address] [place] [address] Assigned Musculoskeletal Provider 11/04/22 [facility] [place] [place] [facility] [address] [place] [address] [place] [id number] Assigned PCP 07/05/23 12/31/23 documented as of this encounter
--- OUTSIDE RECORDS SUMMARY | 2024-04-03 07:15 | XMS_ITS | Encounter Summary ---
Author Organization [facility] Address [address] [place] [address] Care Team Providers Care Customer Advocate Name Role Phone Selma Good APRN SPEECH AND HEARING DIRECTOR Primary Care Pro vider Vanda Guerrero MD Primary Care Provider [phone] Vanda Guerrero MD Unavailable [phone] Jeana-JdNoreen castro APRN SPEECH AND HEARING DIRECTOR Unavailable Jeana-JdNoreen castro APRN, CNP Unavailable JeanaNoreen Garcia APRN SPEECH AND HEARING DIRECTOR Primary Car e Provider Kalyan Galvan Unavailable Unavailable Lashae Trevino [facility] Unavailable [phone] Eduardo Sharma MD Unavailable Rios Monteiro MD Unavailable [phone] Marcelo Artis PA-C Unavailable [phone] Rodrigo Man PA-C Unavailable [phone] Jeana-Noreen Miles APRN SPEECH AND HEARING DIRECTOR Unavailable Sudha Greene NP Primary Care Provider Agatha NullM, Podiatry /Foot and Ankle Surgery Unavailable [facility] Unavailable Encounter Details Date Type Department Care Team (Late st Contact Info) Description 04/17/2010 [facility]C [facility] [place] [phone] Selma Good APRN SPEECH AND HEARING DIRECTOR [address] 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 WORKER documented in this encounter Plan of Treatment Not on file documented as of this encounter Visit Diagnoses Not on filedocumented in this encounter Additional Health Concerns Infection Onset Date Last Indicated Resolved Time Rule Out COVID-19 08/25/2020 08/25/2020 08/26/2020 3:23 PM CDT Rule Out COVID-19 11/26/2022 11/26/2022 11/27/2022 3:38 PM CDT documented as of this encounter Care Teams Customer Advocate Relationship Specialty Start Date End Date Selma Good APRN SPEECH AND HEARING DIRECTOR [address] [place] [address] [place] [address] PCP - General 04/09/08 04/07/15 Vanda Guerrero MD [address] [place] [address] [place] [address] PCP - General Internal Medicine 04/08/15 01/08/19 Vanda Guerrero MD [address] [place] [address] [place] [address] PCP - Assigned PCP 07/24/16 06/15/18 Noreen Flores APRN SPEECH AND HEARING DIRECTOR [address] [place] [address] [place] [address] PCP - Assigned PCP 06/16/18 08/13/18 Noreen Flores APRN SPEECH AND HEARING DIRECTOR [address] [place] [address] [place] [address] PCP - General Nurse Practitioner 01/09/19 12/12/21 Sudha Greene, MAURICIO [address] [address] PCP - General 11/01/22 Noreen Flores APRN SPEECH AND HEARING DIRECTOR [address] [place] [address] [place] [address] Assigned PCP 06/16/18 05/26/22 Kalyan Galvan Personal Advocate & Liaison (PAL) 08/08/19 04/26/21 [facility] [address] [place] [address] Pharmacist Pharmacist 10/14/19 12/01/20 Eduardo Sharma MD [address] [place] [address] [place] [address] Assigned Sleep Provider 04/02/2005/07 [place] [address] [facility] [address] [place] [address] Assigned Musculoskeletal Provider 04/02/20 08/24/20 Marcelo Artis PA-C [address] [place] [address] [place] [address] Assigned Musculoskeletal Provider 08/25/20 08/20/21 Rodrigo Man PA-C [address] [facility] [address] [place] [address] Assigned Surgical Provider 08/25/20 11/27/20 Noreen Flores APRN SPEECH AND HEARING DIRECTOR [address] [place] [address] [place] [address] Assigned PCP 08/05/22 03/16/23 Agatha Null, MARÍA, Podiatry/Foot and Ankle Surgery [address] [place] [address] 300 [place] [address] Assigned Musculoskeletal Provider 11/04/22 [facility] [place] [place] [facility] 3[address] [facility] [place] [address] Assigned PCP 07/05/23 12/31/23 documented as of this encounter
--- OUTSIDE RECORDS SUMMARY | 2024-04-03 07:15 | XMS_ITS | Encounter Summary ---
Author Organization [facility] Address [address] [place] [address] Care Team Providers Care Menswear Salesperson Name Role Phone Selma Good APRN HAND INSPECTOR Primary Care Pro vider Vanda Guerrero MD Primary Care Provider [phone] Vanda Guerrero MD Unavailable [phone] Jeana-JdNoreen castro APRN HAND INSPECTOR Unavailable Jeana-JdNoreen castro APRN, CNP Unavailable JeanaNoreen Garcia APRN HAND INSPECTOR Primary Car e Provider Kalyan Galvan Unavailable Unavailable Lashae Trevino [facility] Unavailable [phone] Eduardo Sharma MD Unavailable Rios Monteiro MD Unavailable [phone] Marcelo Artis PA-C Unavailable [phone] Rodrigo Man PA-C Unavailable [phone] Jeana-Noreen Miles APRN HAND INSPECTOR Unavailable Sudha Greene NP Primary Care Provider Agatha NullM, Podiatry /Foot and Ankle Surgery Unavailable [facility] Unavailable Encounter Details Date Type Department Care Team (Late st Contact Info) Description 07/21/2010 MyC Medical Advice [facility] [place] [phone] Selma Good APRN HAND INSPECTOR [address] [place] [address] [place] [address] Social History Tobacco Use Types Packs/Day Years Used Date Smoking Tobacco: Never Alcohol Use Standard Drinks/Week Comments Yes 0 (1 standard drink = 0.6 oz pur e alcohol) Rare Comments No Sex and Gender Information Value Date Recorded Sex Assigned at Not on file Legal Sex Female 3:19 AM CORN MILLER Gender Identity Female 08/26/2020 9:05 PM CDT [...] documented as of this encounter Care Teams Menswear Salesperson Relationship Specialty Start Date End Date Selma Good, SEAN HAND INSPECTOR [address] [place] [address] [place] [address] PCP - General 04/09/08 04/07/15 Vanda Guerrero MD [address] [place] [address] [place] [address] PCP - General Internal Medicine 04/08/15 01/08/19 Vanda Guerrero MD [address] [place] [address] [place] [address] PCP - Assigned PCP 07/24/16 06/15/18 Noreen Flores APRN HAND INSPECTOR [address] [facility] [place] [address] PCP - Assigned PCP 06/16/18 08/13/18 Noreen Flores APRN HAND INSPECTOR [address] [place] [address] [place] [address] PCP - General Nurse Practitioner 01/09/19 12/12/21 Sudha Greene NP [address] [address] PCP - General 11/01/22 Noreen Flores APRN HAND INSPECTOR [address] [place] [address] [place] [address] Assigned PCP 06/16/18 05/26/22 Kalyan Galvan Personal Advocate & Liaison (PAL) 08/08/19 04/26/21 Lashae Trevino, [facility] [address] [place] [address] [place] [address] Pharmacist Pharmacist 10/14/19 12/01/20 Eduardo Sharma MD [address] [facility] [address] [place] [address] Assigned Sleep Provider 04/02/2005/07 Rios Monteiro MD [address] [place] [address] 300 [place] [address] Assigned Musculoskeletal Provider 04/02/20 08/24/20 Marcelo Artis PA-C [address] [place] [address] [place] [address] [place] [address] Assigned Musculoskeletal Provider 08/25/20 08/20/21 Rodrigo Man PA-C [address] [facility] [place] [facility] [address] [place] [address] Assigned Surgical Provider 08/25/20 11/27/20 Noreen Flores APRN HAND INSPECTOR [address] [place] [address] [place] [address] Assigned PCP 08/05/22 03/16/23 Agatha Null DPM, Podiatry/Foot and Ankle Surgery [address] [facility] [address] [place] [address] Assigned Musculoskeletal Provider 11/04/22 Clinic - [place] [place] [facility] 3305 [facility] [place] [id number] Assigned PCP 07/05/23 12/31/23 documented as of this encounter
--- OUTSIDE RECORDS SUMMARY | 2024-04-03 07:15 | XMS_ITS | Encounter Summary ---
Author Organization [facility] Address [address] [place] [address] Care Team Providers Care Intelligence Officer Basic Name Role Phone Selma Good APRN FAN RUNNER Primary Care Pro vider Vanda Guerrero MD Primary Care Provider [phone] Vanda Guerrero MD Unavailable [phone] Jeana-JdNoreen castro APRN FAN RUNNER Unavailable Jeana-JdNoreen castro APRN, CNP Unavailable JeanaNoreen Garcia APRN FAN RUNNER Primary Car e Provider Kalyan Galvan Unavailable Unavailable Lashae Trevino [facility] Unavailable [phone] Eduardo Sharma MD Unavailable Rios Monteiro MD Unavailable [phone] Marcelo Artis PA-C Unavailable [phone] Rodrigo Man PA-C Unavailable [phone] Jeana-Noreen Miles APRN FAN RUNNER Unavailable Sudha Greene NP Primary Care Provider Agatha NullM, Podiatry /Foot and Ankle Surgery Unavailable [facility] Unavailable Encounter Details Date Type Department Care Team (Late st Contact Info) Description 02/11/2010 [facility] Medical Advice [place] [address] [facility] [place] [phone] Alejo Casas Social History Tobacco Use Types Packs/Day Years Used Date Smoking Tobacco: Never Alcohol Use Standard Drinks/Week Comments Yes 0 (1 standard drink = 0.6 oz pur e alcohol) Rare Comments No Sex and Gender Information Value Date Recorded Sex Assigned at Not on file Legal Sex Female 3:19 AM TALENT MANAGEMENT MANAGER Gender Identity Female 08/26/2020 9:05 PM [...] documented as of this encounter Care Teams Intelligence Officer Basic Relationship Specialty Start Date End Date Selma Good APRN FAN RUNNER [address] [place] [address] [place] [address] PCP - General 04/09/08 04/07/15 Vanda Guerrero MD [address] [place] [address] [place] [address] PCP - General Internal Medicine 04/08/15 01/08/19 Vanda Guerrero MD [address] [place] [address] [place] [address] PCP - Assigned PCP 07/24/16 06/15/18 Noreen Flores APRN FAN RUNNER [address] [place] [address] [place] [address] PCP - Assigned PCP 06/16/18 08/13/18 Noreen Flores APRN FAN RUNNER [address] [place] [address] [place] [address] PCP - General Nurse Practitioner 01/09/19 12/12/21 Sudha Greene NP [address] [address] PCP - General 11/01/22 Noreen Floers APRN FAN RUNNER [address] [place] [address] [place] [address] Assigned PCP 06/16/18 05/26/22 Kalyan Galvan Personal Advocate & Liaison (PAL) 08/08/19 04/26/21 Lashae Trevino [facility] [place] [address] Pharmacist Pharmacist 10/14/19 12/01/20 Eduardo Sharma MD [address] [address] Assigned Sleep Provider 04/02/2005/07 [place] [address] [place] [address] [place] [address] Assigned Musculoskeletal Provider 04/02/20 08/24/20 Marcelo Artis PA-C [address] [facility] [address] [place] [address] [place] [address] Assigned Musculoskeletal Provider 08/25/20 08/20/21 Rodrigo Man PA-C [address] [place] [address] [place] [address] Assigned Surgical Provider 08/25/20 11/27/20 Noreen Flores APRN FAN RUNNER 3305 [facility] [place] [address] Assigned PCP 08/05/22 03/16/23 Agatha Null DPM, Podiatry/Foot and Ankle Surgery [address] [place] [address] [place] [address] Assigned Musculoskeletal Provider 11/04/22 Clinic - [facility] 3305 [facility] [place] [id number] Assigned PCP 07/05/23 12/31/23 documented as of this encounter
[2024-04-03] MEDS: LACTATED RINGERS 1000 ML 1,000 ML 100 ML IV (07:20)
[2024-04-03] MEDS: SODIUM CHLORIDE 0.9 % (FLUSH) 10 ML SYRINGE IVF (07:35)
--- NOTE | 2024-04-03 08:51 | W.ANESCHARGE ---
Anesthesia Charges Start Date/Time Anesthesia Start Date: 04/03/24 Anesthesia Start Time: 09:05 Stop Date/Time Anesthesia Stop Date: 04/03/24 Anesthesia Stop Time: 10:42
[2024-04-03] MEDS: CEFAZOLIN 2 GM INJ IVP (09:20)
[2024-04-03] MEDS: BUPIVACAINE 0.5% 30 ML 20 ML INJECTION (09:28)
--- NOTE | 2024-04-03 09:50 | SUR.OPER ---
PATIENT QUESTIONS ANSWERED SATISFACTORILY PREOPERATIVELY. PATIENT BROUGHT TO OR #1 PER CART. Patient positioned supine on OR #1 bed. The perioperative team supported arms bilaterally on arm boards. Final approval of positioning by surgeon.
--- NOTE | 2024-04-03 10:30 | PM.GSPRC ---
Operative Note Date of procedure: 04/03/24 Pre-op diagnosis: Chronic cholecystitis Post-op diagnosis: Same Type of Procedure: Laparoscopic cholecystectomy Indications: Patient is a 59-year-old female who presented to clinic with intermittent right upper quadrant abdominal pain. Clinical workup and findings were suspicious for chronic cholecystitis. Different treatment options were reviewed including observation with a low-fat diet versus surgical intervention. Risks and benefits of operative intervention were discussed at length with the patient. Risks included but was not limited to: Bleeding, infection, risk of damage to surrounding structures, possible need for additional procedures, possible need to convert to an open operation and postoperative complications such as pneumonia, pulmonary emboli or OK. All questions and concerns were addressed with the patient agreeing to proceed. Procedure Description: After discussing the risks and benefits of the procedure, the patient signed informed consent.? The operative site was marked and the patient was brought to the operating room and placed on the operating table in supine position.? Care was taken to pad the patient's pressure points.?? The patient was then intubated by anesthesia.?? The operative site was then prepped and draped in the usual sterile fashion.? A time-out was then performed. Entrance to the abdomen was gained via a 5 mm Visiport in the left upper quadrant. The abdomen was insufflated and briefly surveyed for signs of injury. There was none. 11 mm supra umbilical port was placed as well as 2 working ports along the right costal margin. Patient was then placed in reverse Trendelenburg position with the right side up. The gallbladder fundus was grasped and retracted cephalad. A small amount of dissection was needed to free omental adhesions from the gallbladder. The infundibulum was grasped. A combination of hook cautery and blunt dissection was used to carefully dissect out the cystic duct and artery. During dissection a small tear in the body of the gallbladder was inadvertently created with some spillage of bile. There was no spilling of stones. Dissection was continued until 2 structures could clearly be seen entering the gallbladder without any intervening structures. The gallbladder was dissected off the cystic plate to achieve the critical view. Once this was achieved the cystic duct and artery were each clipped with 2 clips proximally and 1 clip distally and transected with the scissors. The gallbladder was then taken off of the liver bed. A small artery within the gallbladder fossa was seen, a single 5 mm clip was applied for hemostasis. The gallbladder was then removed from the abdomen using an Endo-Catch bag. The gallbladder bed was surveyed for hemostasis. A small amount of bile which had spilled was suctioned from the abdomen. The umbilical port fascia was closed with 0 Vicryl via the Suraj-Mikala. All of the remaining ports were then removed under direct vision. The skin was closed with absorbable subcuticular suture. Instrument sponge and needle counts were correct at the end of the case. The patient was then woken and transferred to the PACU in stable condition. Findings: Cholelithiasis Anesthesia: GETA Surgeon: Luisa Anthony MD Estimated blood loss (mL): 5 Specimen: Gallbladder Condition: stable Disposition: PACU
--- NOTE | 2024-04-03 10:48 | W.ANESCHARGE ---
Anesthesia Charges Start Date/Time Anesthesia Start Date: 04/03/24 Anesthesia Start Time: 09:05 Stop Date/Time Anesthesia Stop Date: 04/03/24 Anesthesia Stop Time: 10:42
[2024-04-03] MEDS: fentaNYL 100 MCG/2 ML inj 50 MCG IVP ×2 (10:54→11:05)
[2024-04-03] MEDS: ONDANSETRON 2 MG/ML inj 4 MG IVP (11:21)
--- NOTE | 2024-04-03 11:29 | SUR.PHASEI ---
PATIENT STATES ITS HARD TO ASSESS PAIN OR IF ITS HUNGER PAIN, STATES THAT SHE IS TOO SLEEPY TO ASSESS WITH A NUMBER, BLOOD PRESSURE IS LOOKING GREAT, VITALS ARE STABLE.
[2024-04-03] MEDS: HYDROCODONE-ACETAMIN 5-325 MG 1 TAB PO (12:20)
== END 2024-04-03 13:33 | disposition home or self-care (01) ==
PROVIDERS: PCP Nurse Practitioner Family; Visit Provider Surgery
PROC: 0FT44ZZ Resection of Gallbladder, Percutaneous Endoscopic Approach (ICD-10-PCS; CPT 47562; principal; 2024-04-03 08:45)
DX: K81.1 Chronic cholecystitis (principal); R10.11 Right upper quadrant pain; E11.9 Type 2 diabetes mellitus without complications; E66.9 Obesity, unspecified; K76.0 Fatty (change of) liver, not elsewhere classified; K21.9 Gastro-esophageal reflux disease without esophagitis; I44.4 Left anterior fascicular block; Z86.718 Personal history of other venous thrombosis and embolism; Z68.36 Body mass index [BMI] 36.0-36.9, adult
CPT/HCPCS: 47562; 00790; 82962; 88304; A9270; J0665; J0690; J1100; J1885; J2250; J2405; J2710; J3010; J7120

== ENCOUNTER 2024-06-09 10:49 | Outpatient (CLI) | payer BC, SELFPAY ==
--- NOTE | 2024-06-09 11:15 | CRLHL7_ITS ---
For Patients: As a result of the Century Cures Act, medical imaging exams and procedure reports are released immediately into your electronic medical record. You may view this report before your referring provider. If you have questions, please contact your health care provider. CLINICAL HISTORY: Echogenic lesion COMPARISON: MRI 11/02/2023, CT 10/01/2023 TECHNIQUE: Lawrence scale and color Doppler images were acquired of the kidneys and urinary bladder. FINDINGS: 5 x 4 x 3 millimeter echogenic focus lower pole right kidney. No shadowing. No hydronephrosis. The right kidney measures 9.0cm in length and the left kidney measures 9.0cm in length. The renal cortex appears of normal thickness. Normal color Doppler imaging of both kidneys. The urinary bladder appears normal. There is no evidence of bladder calculi or diverticula. Prevoid bladder volume 32 cc. Postvoid bladder volume less than 1 cc. IMPRESSION: 5 millimeter right renal angiomyolipoma. No hydronephrosis. No renal stone. No suspicious mass. Dictated by Kleber Nichole MD @ 06/09/2024 11:55:18 AM (Electronically Signed)
== END 2024-06-09 10:50 | disposition home or self-care (01) ==
LOC: US 10:50
PROVIDERS: PCP Nurse Practitioner Family; Visit Provider Nurse Practitioner Family
DX: R93.89 Abnormal findings on diagnostic imaging of other specified body structures (principal); D17.71 Benign lipomatous neoplasm of kidney
CPT/HCPCS: 76770; 80053; 80061; 82607; 84443

== ENCOUNTER 2024-06-09 15:24 | Outpatient (CLI) | payer BC, SELFPAY | END 2024-06-09 15:25 | disposition home or self-care (01) | PROVIDERS: PCP Nurse Practitioner Family; Visit Provider Nurse Practitioner Family | DX: E11.9 Type 2 diabetes mellitus without complications (principal); E53.8 Deficiency of other specified B group vitamins; M79.7 Fibromyalgia; Z13.29 Encounter for screening for other suspected endocrine disorder; R93.89 Abnormal findings on diagnostic imaging of other specified body structures; D17.71 Benign lipomatous neoplasm of kidney | CPT/HCPCS: 80053; 80061; 82607; 84443 ==

== ENCOUNTER 2024-07-30 14:26 | Outpatient (CLI) | payer BC, OTHER, SELFPAY ==
--- NOTE | 2024-07-30 14:30 | CRLHL7_ITS ---
For Patients: As a result of the Century Cures Act, medical imaging exams and procedure reports are released immediately into your electronic medical record. You may view this report before your referring provider. If you have questions, please contact your health care provider. INDICATION: Dizziness. Technique Multiplanar multisequence noncontrast MR images of the brain. COMPARISON: None. FINDINGS: The ventricles and sulci are within normal limits for patient age. No mass effect or midline shift. Few punctate FLAIR hyperintensities in the supratentorial white matter, nonspecific. No intracranial hemorrhage or pathologic extra-axial fluid collection. No diffusion restriction to suggest acute infarction. The major arterial flow voids of the skullbase are preserved. Thinning of the ocular lenses. Paranasal sinuses are well aerated. Mastoid air cells are clear. IMPRESSION: 1. No acute intracranial abnormality. 2. Few punctate FLAIR hyperintensities in the supratentorial white matter are nonspecific, though most typical for sequelae of migraine headaches or minimal chronic microvascular ischemic changes. Dictated by Saleem Castorena MD @ 07/30/2024 4:34:43 PM (Electronically Signed)
== END 2024-07-30 14:27 | disposition home or self-care (01) ==
LOC: MRI 14:27
PROVIDERS: PCP Nurse Practitioner Family; Visit Provider Nurse Practitioner Family
DX: R42 Dizziness and giddiness (principal)
CPT/HCPCS: 70551

== ENCOUNTER 2024-09-25 13:13 | Outpatient (CLI) | payer BC, SELFPAY | END 2024-09-25 13:14 | disposition home or self-care (01) | LOC: KYNREF 13:14 | PROVIDERS: PCP Nurse Practitioner Family; Visit Provider Nurse Practitioner Family | DX: E11.65 Type 2 diabetes mellitus with hyperglycemia (principal); Z79.84 Long term (current) use of oral hypoglycemic drugs | CPT/HCPCS: 82043; 82570 ==

== ENCOUNTER 2025-02-06 13:24 | Outpatient (CLI) | payer BC, SELFPAY | END 2025-02-06 13:25 | disposition home or self-care (01) | PROVIDERS: PCP Nurse Practitioner Family; Visit Provider Nurse Practitioner Family | DX: M79.644 Pain in right finger(s) (principal) | CPT/HCPCS: 84550; 85651; 86140 ==

== ENCOUNTER 2025-02-11 09:49 | Outpatient (CLI) | payer BC, SELFPAY | END 2025-02-11 09:50 | disposition home or self-care (01) | LOC: NFLDREF 02-16 13:11 | PROVIDERS: PCP Nurse Practitioner Family; Referring Provider Nurse Practitioner Family; Visit Provider Nurse Practitioner Family | DX: M79.644 Pain in right finger(s) | CPT/HCPCS: 86038; 86039; 86200; 86431 ==